=== PATIENT | female | born 1945 | race Caucasian/White ===

== ENCOUNTER 2023-09-30 16:10 | Observation (INO) | payer MEDICARE, MEDICAID, SELFPAY ==
--- NOTE | 2023-09-30 16:17 | ECG_ITS ---
The [facility] Test Date: 2023-09-30 Pat Name: TERESA GOODWIN Department: Room: - Gender: Female [employer]: : 1945 Requested By: Order Number: [id number] Reading MD: DIAN LLOYD Measurements Intervals Kulm Rate: 81 P: -2 RI: 132 QRS: -21 QRSD: 134 T: 22 QT: 414 QTc: 452 Interpretive Statements 1100 Sinus rhythm LEFT BUNDLE BRANCH BLOCK with secondary ST/T wave changes 9150 abnormal ECG No previous ECG available for comparison Electronically Signed On 10-01-2023 7:04:06 EST by DIAN LLOYD
--- NOTE | 2023-09-30 16:17 | XR_ITS ---
The [address] [address] Patient Name: TERESA GOODWIN MRN: [id number] date: 1945 Sex: F Assigned Patient Location: ER Current Patient Location: ER Accession/Order Number: [id number] Exam Date: 09/30/2023 05:20 Report Date: 09/30/2023 17:56 At the request of: SARKIS PRITCHETT Procedure: XR chest 1V EXAMINATION: XR chest 1V 09/30/2023 2:52 PM PST HISTORY: Weakness TECHNIQUE: Single frontal view of the chest acquired. COMPARISONS: Chest x-ray 01/10/2016 FINDINGS: Lines/tubes/other: Central venous catheter terminates in the proximal right atrium. Heart and mediastinum: Mildly enlarged cardiac silhouette. Cardiac valve replacement noted. Bones: No acute osseous abnormality. Lungs: The lungs are clear. There is no evidence of pneumonia or pulmonary edema. Small benign calcification granuloma in the right apex. Pleura: There is no significant pleural effusion or pneumothorax. Other: None. XR/XR chest 1V IMPRESSION: No acute cardiopulmonary abnormality. Electronically authenticated by: GHASSAN GREER Date: 09/30/2023 17:56
--- NOTE | 2023-09-30 16:19 | CT_ITS ---
The [address] [address] Patient Name: TERESA GOODWIN MRN: [id number] date: 1945 Sex: F Assigned Patient Location: ER Current Patient Location: Accession/Order Number: [id number] Exam Date: 09/30/2023 05:20 Report Date: 09/30/2023 18:02 At the request of: SARKIS PRITCHETT Procedure: CT head/brain wo con NONCONTRAST CT SCAN OF THE HEAD HISTORY: Headache. TECHNIQUE: Multiple axial images are taken from the level the vertex down to the base of the skull without the use of IV contrast. Images were then reconstructed in the sagittal and coronal planes. This exam was performed according to our departmental dose-optimization program which includes use of Automated Exposure Control, adjustment of the mA and/or kV according to patient size and/or use of iterative reconstruction technique. COMPARISON: None. FINDINGS: Lines and tubes: Shunt tubing with tip in the third ventricle arising from a right frontal approach. Brain Parenchyma: There is global, diffuse atrophy with periventricular decreased white matter attenuation. No intracranial mass. No intracranial hemorrhage. Posterior fossa: Normal. Midline shift: None Extra-axial fluid collection: None Ventricles: Normal. Mastoid air cells: Normal. Sinuses: Normal. Cranium: No depressed skull fracture. Danelle hole seen in the right frontal bone. Soft tissues: Normal. Orbits: Orbits demonstrate postoperative changes from prior cataract resection with prosthetic lens implant. CT/CT head/brain wo con IMPRESSION: 1. Chronic small vessel ischemic change. 2. Otherwise, no CT evidence for acute pathology. 3. If patient continues to have symptoms or if there remains any further clinical concern, MRI may help better delineate. Electronically authenticated by: GABRIEL YANES Date: 09/30/2023 18:02
--- NOTE | 2023-09-30 16:20 | ED_ITS ---
HPI - General Adult General Chief complaint: Weakness Stated complaint: WEAKNESS Time Seen by Provider: 09/30/23 16:17 History of Present Illness HPI narrative: patient is a 78-year-old female who presents to the emergency department by ambulance for the evaluation of generalized weakness. Patient states she was diagnosed with a urinary tract infection one week ago by her PCP. She states she feels as though she is not getting any better. She has not had any falls or syncope. She states she feels confused. She denies chest pain, shortness of breath, fevers, vomiting or diarrhea. She states she feels as though she is not urinating enough. She does not know if she is still taking her antibiotic. She is diabetic, she has a Dexcom to monitor her blood sugars. Related Data Home Medications Medication Instructions Recorded Confirmed cephalexin 500 mg capsule mg 09/30/23 clopidogrel 75 mg tablet mg 09/30/23 gabapentin 300 mg capsule mg 09/30/23 insulin detemir U-100 100 unit/mL unit subcut 09/30/23 (3 mL) subcutaneous pen (Levemir FlexPen) letrozole 2.5 mg tablet mg 09/30/23 metoprolol succinate 50 mg mg PO 09/30/23 tablet,extended release 24 hr ondansetron 4 mg disintegrating mg 09/30/23 tablet pantoprazole 40 mg tablet,delayed mg PO 09/30/23 release sertraline 100 mg tablet mg 09/30/23 sitagliptin phosphate 50 mg tablet mg 09/30/23 (Januvia) trazodone 100 mg tablet mg 09/30/23 Allergies Allergy/AdvReac Type Severity Reaction Status Date / Time No Known Drug Allergies Allergy Verified 09/30/23 16:22 Review of Systems ROS Constitutional Reports: fatigue; Denies: fever or chills Ears, nose, mouth, and throat Denies: throat pain or nasal congestion Cardiovascular Denies: chest pain Respiratory Denies: shortness of breath or cough Gastrointestinal Denies: abdominal pain, nausea, vomiting or diarrhea Genitourinary Reports: decreased urine ouput; Denies: painful urination Musculoskeletal Reports: back pain Integumentary/Breast Denies: rash Neurological Denies: headache or dizziness PFSH PFSH Social History Smoking status: Never smoker Exam Narrative Exam Narrative: Gen.: Awake, alert, in no distress Head: Normocephalic, atraumatic ENT: dry mucous membranes Respiratory: No respiratory distress, lungs clear bilaterally Cardio: Regular rate and rhythm Gastrointestinal: Abdomen is soft, nondistended and nontender to palpation Extremities: Moves extremities equally Psych: Normal mood and affect Neuro: No focal neuro deficit Skin: Warm, dry, intact Constitutional Vital Signs, click to edit/add: Last Vital Signs Temp 98.2 F 09/30/23 16:22 Pulse 88 09/30/23 16:22 Resp 20 09/30/23 16:22 BP 139/85 09/30/23 16:22 Pulse Ox 98 09/30/23 16:22 O2 Del Method Room Air 09/30/23 16:22 Course Vital Signs Vital signs: Vital Signs Temperature 98.2 F 09/30/23 16:22 Pulse Rate 88 09/30/23 16:22 Respiratory Rate 20 09/30/23 16:22 Blood Pressure 139/85 09/30/23 16:22 Pulse Oximetry 98 09/30/23 16:22 Oxygen Delivery Method Room Air 09/30/23 16:22 Temperature 98.2 F 09/30/23 16:22 Pulse Rate 88 09/30/23 16:22 Respiratory Rate 20 09/30/23 16:22 Blood Pressure 139/85 09/30/23 16:22 Pulse Oximetry 98 09/30/23 16:22 Oxygen Delivery Method Room Air 09/30/23 16:22 Medical Decision Making MDM Narrative Medical decision making narrative: patient is treated with IV fluids, vital signs in the Emergency Room are within normal limits, however on straight catheterization for urine, patient had only a small amount of urine in her bladder. She appears clinically dehydrated, her daughter called the emergency department stating that the patient has not been improving with antibiotics for the last six days, she has had a decline and is more weak, more unable to function at home. CT of the brain, chest x-ray show no evidence of acute process. Lab studies show elevated BUN and slightly elevated creatinine, urine specimen with mild urinary tract infection continuing to be present. Patient treated with IV antibiotics, IV fluids. We will admit to the hospitalist for observation for urinary tract infection and weakness. Medical Records Medical records reviewed: Yes I reviewed the patient's medical records Lab Data Lab results reviewed: Yes I reviewed the patient's lab results Labs: Lab Results 09/30/23 09/30/23 Range/Units 17:10 17:46 WBC 8.0 (4.0-11.0) 10^3/uL RBC 3.65 L (4.20-5.40) 10^6/uL Hgb 10.3 L (12.0-16.0) g/dL Hct 31.5 L (36.0-48.0) % MCV 86.3 (81.0-99.0) fL MCH 28.2 (26.7-34.0) pg MCHC 32.7 (29.9-35.2) g/dL RDW 13.9 (11.0-15.0) % Plt Count 222 (150-450) 10^3/uL MPV 10.4 (9.5-13.5) fL Neut % (Auto) 69.5 (43.0-75.0) % Lymph % (Auto) 19.7 L (20.5-60.0) % [place] % (Auto) 9.1 (1.7-12.0) % Eos % (Auto) 0.9 (0.9-7.0) % Baso % (Auto) 0.5 (0.2-2.0) % Neut # (Auto) 5.6 (1.4-6.5) 10^3/uL Lymph # (Auto) 1.6 (1.2-3.8) 10^3/uL [place] # (Auto) 0.7 (0.3-0.8) 10^3/uL Eos # (Auto) 0.1 (0.0-0.7) 10^3/uL Baso # (Auto) 0.0 (0.0-0.1) 10^3/uL Abs Immat Gran (auto) 0.02 (0.00-0.03) 10^3/uL Imm/Tot Granulo (auto) 0.3 (0.0-0.5) % PT 11.4 (9.0-11.6) sec INR 1.08 Sodium 135 L (136-145) mmol/L Potassium 3.9 (3.5-5.1) mmol/L Chloride 99 (98-107) mmol/L Carbon Dioxide 26.7 (21.0-32.0) mmol/L Anion Gap 13.2 BUN 22.0 H (7.0-18.0) mg/dL Creatinine 1.29 H (0.55-1.02) mg/dL Est GFR ( Amer) 49 L (>=60) Est GFR (Non-Af Amer) 40 L (>=60) BUN/Creatinine Ratio 17.1 Glucose 172 H (74-106) mg/dL Lactate 1.2 (0.4-2.0) mmol/L Calcium 9.1 (8.5-10.1) mg/dL Magnesium 1.7 L (1.8-2.4) mg/dL Total Bilirubin 0.4 (0.2-1.0) mg/dL AST 22 (15-37) U/L ALT 23 (14-59) U/L Alkaline Phosphatase 110 (46-116) U/L Troponin I High Sens 19.5 (4.0-51.3) pg/mL Total Protein 8.0 (6.4-8.2) g/dL Albumin 3.5 (3.4-5.0) g/dL Globulin 4.5 g/dL Albumin/Globulin Ratio 0.8 TSH 1.185 (0.358-3.740) uIU/mL Urine Color Lt. yellow (YELLOW) Urine Clarity Cloudy A (CLEAR) Urine pH 6.0 (5.0-9.0) Ur Specific [place] >=1.030 A (1.005-1.025) Urine Protein 100 A (NEG/TRACE) mg/dL Urine Glucose (UA) 100 A (NEGATIVE) mg/dL Urine Ketones Trace A (NEGATIVE) mg/dL Urine Occult Blood Small A (NEGATIVE) Urine Nitrite Negative (NEGATIVE) Urine Bilirubin Negative (NEGATIVE) Urine Urobilinogen 0.2 (0.2-1.0) EU/dL Ur Leukocyte Esterase Small A (NEGATIVE) Urine RBC 2-5 A (0-2) #/HPF Urine WBC 2-5 A (NONE SEEN) #/HPF Ur Squamous Epith Cells Many A (NONE/RARE) #/LPF Urine Crystals None seen (None Seen) #/HPF Urine Bacteria Small A (NONE SEEN) #/HPF Urine Casts None seen (NONE SEEN) #/LPF Urine Mucus Small A (NONE SEEN) Ur Culture Indicated? Yes Imaging Data Chest x-ray: Attestation: I have reviewed the pertinent imaging results. Radiologist's impression: Procedure: XR chest 1V EXAMINATION: XR chest 1V 09/30/2023 2:52 PM PST HISTORY: Weakness TECHNIQUE: Single frontal view of the chest acquired. COMPARISONS: Chest x-ray 01/10/2016 FINDINGS: Lines/tubes/other: Central venous catheter terminates in the proximal right atrium. Heart and mediastinum: Mildly enlarged cardiac silhouette. Cardiac valve replacement noted. Bones: No acute osseous abnormality. Lungs: The lungs are clear. There is no evidence of pneumonia or pulmonary edema. Small benign calcification granuloma in the right apex. Pleura: There is no significant pleural effusion or pneumothorax. Other: None. IMPRESSION: No acute cardiopulmonary abnormality. Electronically authenticated by: GHASSAN GREER Date: 09/30/2023 17:56 CT scan - head: Attestation: I have reviewed the pertinent imaging results. Radiologist's impression: Procedure: CT head/brain wo con NONCONTRAST CT SCAN OF THE HEAD HISTORY: Headache. TECHNIQUE: Multiple axial images are taken from the level the vertex down to the base of the skull without the use of IV contrast. Images were then reconstructed in the sagittal and coronal planes. This exam was performed according to our departmental dose-optimization program which includes use of Automated Exposure Control, adjustment of the mA and/or kV according to patient size and/or use of iterative reconstruction technique. COMPARISON: None. FINDINGS: Lines and tubes: Shunt tubing with tip in the third ventricle arising from a right frontal approach. Brain Parenchyma: There is global, diffuse atrophy with periventricular decreased white matter attenuation. No intracranial mass. No intracranial hemorrhage. Posterior fossa: Normal. Midline shift: None Extra-axial fluid collection: None Ventricles: Normal. Mastoid air cells: Normal. Sinuses: Normal. Cranium: No depressed skull fracture. Danelle hole seen in the right frontal bone. Soft tissues: Normal. Orbits: Orbits demonstrate postoperative changes from prior cataract resection with prosthetic lens implant. IMPRESSION: 1. Chronic small vessel ischemic change. 2. Otherwise, no CT evidence for acute pathology. 3. If patient continues to have symptoms or if there remains any further clinical concern, MRI may help better delineate. Electronically authenticated by: GABRIEL YANES Date: 09/30/2023 18:02 ECG Data Attestation: I personally reviewed and interpreted this ECG as follows: (normal sinus rhythm at a rate of eighty-one, no acute ST elevation, T-wave inversion in the lateral leads, EKG reviewed by attending physician) Discharge Plan Discharge Chief Complaint: Weakness Clinical Impression: Acute UTI, Dehydration, Weakness Patient Disposition: Admitted as Observation Time of Disposition Decision: 18:23 Condition: Good
[2023-09-30 16:22] VITALS: BP 139/85; PULSE 88; RESP 20; TEMP 36.8; O2SAT 98
[2023-09-30] MEDS: 0.9 % SODIUM CHLORIDE 1,000 ML 500 ML IV (17:05)
[2023-09-30 17:20] LABS: Basophils Percent Auto 0.5 % (0.2-2.0); Eosinophils Absolute Auto 0.1 10^3/uL (0.0-0.7); Eosinophils Percent Auto 0.9 % (0.9-7.0); Hematocrit 31.5 % (36.0-48.0); Hemoglobin 10.3 g/dL (12.0-16.0); Immature Granulocytes Abs Auto 0.02 10^3/uL (0.00-0.03); Immature Granulocytes Pct Auto 0.3 % (0.0-0.5); Lymphocytes Absolute Auto 1.6 10^3/uL (1.2-3.8); Lymphocytes Percent Auto 19.7 % (20.5-60.0); Mean Corpuscular HGB Conc 32.7 g/dL (29.9-35.2); Mean Corpuscular Hemoglobin 28.2 pg (26.7-34.0); Mean Corpuscular Volume 86.3 fL (81.0-99.0); Mean Platelet Volume 10.4 fL (9.5-13.5); Monocytes Absolute Auto 0.7 10^3/uL (0.3-0.8); Monocytes Percent Auto 9.1 % (1.7-12.0); Neutrophils Absolute Auto 5.6 10^3/uL (1.4-6.5); Neutrophils Percent Auto 69.5 % (43.0-75.0); Platelet Count 222 10^3/uL (150-450); Red Blood Count 3.65 10^6/uL (4.20-5.40); Red Cell Distribution Width 13.9 % (11.0-15.0)
[2023-09-30 17:30] LABS: INR 1.08; Prothrombin Time 11.4 sec (9.0-11.6)
[2023-09-30 17:40] LABS: Alanine Aminotransferase 23 U/L (14-59); Albumin Globulin Ratio 0.8; Albumin Level 3.5 g/dL (3.4-5.0); Alkaline Phosphatase 110 U/L (46-116); Anion Gap 13.2; Aspartate Amino Transferase 22 U/L (15-37); BUN Creatinine Ratio 17.1; Bilirubin Total 0.4 mg/dL (0.2-1.0); Calcium 9.1 mg/dL (8.5-10.1); Carbon Dioxide 26.7 mmol/L (21.0-32.0); Chloride 99 mmol/L (98-107); Estimated GFR (African America 49 (>=60); Estimated GFR (Non-African Ame 40 (>=60); Globulin 4.5 g/dL; Glucose 172 mg/dL (74-106); Magnesium 1.7 mg/dL (1.8-2.4); Potassium 3.9 mmol/L (3.5-5.1); Sodium 135 mmol/L (136-145); Thyroid Stimulating Hormone 1.185 uIU/mL (0.358-3.740); Troponin I High Sensitivity 19.5 pg/mL (4.0-51.3)
[2023-09-30 17:46] LABS: Lactate/Lactic Acid 1.2 mmol/L (0.4-2.0)
[2023-09-30 17:56] LABS: Bilirubin Urine NEGATIVE (NEGATIVE); Blood Urine SMALL (NEGATIVE); Color Urine LT. YELLOW (YELLOW); Glucose Urine UA 100 mg/dL (NEGATIVE); Ketones Urine TRACE mg/dL (NEGATIVE); Leukocyte Esterase Urine SMALL (NEGATIVE); Nitrite Urine NEGATIVE (NEGATIVE); Protein Urine 100 mg/dL (NEG/TRACE); Specific Gravity Urine >=1.030 (1.005-1.025); Urobilinogen Urine 0.2 EU/dL (0.2-1.0)
[2023-09-30 17:57] LABS: Clarity Urine CLOUDY (CLEAR); Urine Microscopic Indicated YES
[2023-09-30 17:58] LABS: Bacteria Urine SMALL #/HPF (NONE SEEN); Cast Seen? NONE SEEN #/LPF (NONE SEEN); Crystals Seen? None Seen #/HPF (None Seen); Mucus Urine SMALL (NONE SEEN); Squamous Epithelial Cell Urine MANY #/LPF (NONE/RARE); Urine Culture Indicated YES
[2023-09-30] MEDS: MAGNESIUM SULFATE IN WATER 2 GM/50 ML PREMIX IV (18:20)
[2023-09-30 19:44] VITALS: BP 141/64; PULSE 76; RESP 16; TEMP 37.1; O2SAT 96; BMI 29.5
[2023-09-30 21:52] LABS: Glucometer 153 mg/dL (74-106)
--- NOTE | 2023-09-30 22:25 | W.PM.TELEPN ---
Progress Note: Subjective Subjective Interval history: CC: Weakness HPI: This is a 78 years old female brought in by history of family for evaluation of weakness. Patient lives at home with daughter. According to daughter patient no longer able to function by herself. Patient's past medical history significant for diabetes, hypertension, dyslipidemia. Patient has recurrent bouts of urinary tract infection. She is currently on Keflex. Patient denies having any fever, chills, dysuria. Urinalysis in the emergency room did not reveal any signs of acute infection. Admitted for further evaluation. Exam Narrative Exam Narrative: ROS: 1.General: no fever, chills, not in distress 2.HEENT: no MICHEL, no blurry vision, no swallow problems, no nasal congestion, no sore throat 3.Pulmonary: no cough, SOB, wheezes 4.CVS: no CP, no palpitations, no MAX, no SOB, no intermittent claudication 5.GI: no nausea, vomiting or diarrhea, no abdominal pain, no constipation, no hematemesis or hematochezia 6.: no renal colic, no hematuria, urinary frequency or urgency 7.Extremities: no edema 8.Neurological: no dizziness, vertigo, double or blurry vision, no no focal weakness, no paresthesia, no swallow or speech problems 9.Musculosceletal: no joint pains, no joint swelling, no back pain 10.Dermatological: no skin rashes, no lesions, no pruritus 11.Hematological: no bleeding, no hx/o clots 12.Endocrinological: no heat/cold intolerance, no hx/o diabetes 13.Psychiatric: no suicidal or homicidal thoughts Physical Exam: Not in distress, pleasant, lucid, cooperative, Head - atraumatic, eyes - pupils equal, round, reactive to light, extra ocular movement intact, MMM Neck - supple, thyroid not enlarged, LN not palpated Lungs - clear to auscultation, no dullness on percussion CVS - heart sounds S1, S2, no additional murmurs gallop, regular rate and rhythm Gastrointestinal?abdomen is soft, non-tender, non-distended, no organomegaly, positive bowel sounds Extremities no clubbing, cyanosis or edema Neurological?cranial nerve II?XII grossly intact, no meningeal signs, no cerebellar signs, no sensory deficit Musculoskeletal - DJD related changes in multiple joints, no effusions, ROM preserved Dermatological - the skin dry, warm, no rashes Psychiatric?patient is AAO X3, patient has normal affect Constitutional Vital Signs, click to edit/add: Last Vital Signs Temp 98.8 F 09/30/23 19:44 Pulse 76 09/30/23 19:44 Resp 16 09/30/23 19:44 BP 141/64 09/30/23 19:44 Pulse Ox 96 09/30/23 19:44 O2 Del Method Room Air 09/30/23 19:44 Progress Note: Objective Labs Labs: Short CBC 09/30/23 Range/Units 17:10 WBC 8.0 (4.0-11.0) 10^3/uL Hgb 10.3 L (12.0-16.0) g/dL Hct 31.5 L (36.0-48.0) % Plt Count 222 (150-450) 10^3/uL BMP 09/30/23 17:10 Sodium 135 L Potassium 3.9 Chloride 99 Carbon Dioxide 26.7 BUN 22.0 H Creatinine 1.29 H Glucose 172 H Calcium 9.1 Liver Function 09/30/23 Range/Units 17:10 Total Bilirubin 0.4 (0.2-1.0) mg/dL AST 22 (15-37) U/L ALT 23 (14-59) U/L Alkaline Phosphatase 110 (46-116) U/L Albumin 3.5 (3.4-5.0) g/dL Urine 09/30/23 Range/Units 17:46 Urine Color Lt. yellow (YELLOW) Urine Clarity Cloudy A (CLEAR) Urine pH 6.0 (5.0-9.0) Ur Specific [place] >=1.030 A (1.005-1.025) Urine Protein 100 A (NEG/TRACE) mg/dL Urine Glucose (UA) 100 A (NEGATIVE) mg/dL Progress Note: A&P Assessment and Plan (1) Acute UTI: Assessment and Plan: Follow-up results of the cultures Continue with IV ceftriaxone for now (2) Dehydration: Assessment and Plan: Started on gentle, judicious IV fluid resuscitation Patient has difficulty keeping IV, if unable to keep IV?encourage oral hydration (3) Weakness: Assessment and Plan: Multifactorial?follow-up with physical and Occupational Therapy for disposition determination Fall precautions in place (4) Diabetes: Assessment and Plan: Continue with ADA diet Continue with long and short acting insulin Started on sliding scale (5) Hypertension: Assessment and Plan: Verify and resume home regimen, adjust as needed Plan As the provider for the telehealth service, I attest that I introduced myself to the patient, provided my credentials, disclosed by location and determined that based on a review of the patient's chart and discussion with members of the patient's treatment team, telemedicine via real-time, 2 way, and interactive audio and video platform is an appropriate and effective means of providing the service. ?The patient and I mutually agree this visit is appropriate for telemedicine. ?The virtual encounter was taken place from? [place], [place]. ?The encounter took approximately 35 minutes. ?The nurse was present during the entire time and I was able to move the stethoscope in appropriate directions. ?The patient was evaluated at the Hospital ? Portions of this note may be dictated using [employer] voice recognition software. Variances in spelling and vocabulary are possible and unintentional. Not all errors may be caught and/or corrected. Please notify the author if any discrepancies are noted and/or if the meaning of any statement is unclear.? ? Patient verbally consented for treatment via video visit with patient currently located at the [facility] and provider located in [place]. Telemedicine Attestation Telemedicine Attestation I conducted this encounter from [place] [] via secure live, [id number] video conference with the patient, located at [facility] with UTI []. Prior to the interview, the risks and benefits of telemedicine were discussed with the patient and verbal consent was obtained.
[2023-09-30] MEDS: CEFTRIAXONE 1,000 MG in 0.9 % SODIUM CHLORIDE 50 ML 100 MG IV (23:40)
[2023-09-30] MEDS: 0.9 % SODIUM CHLORIDE 1,000 ML 75 ML IV (23:40)
[2023-09-30] MEDS: INSULIN DETEMIR 300 UNIT/3 ML INSULN.PEN 10 UNIT SUBQ (23:45)
[2023-09-30] MEDS: GABAPENTIN 300 MG CAPSULE PO (23:46)
[2023-09-30] MEDS: TRAZODONE HCL 50 MG TABLET 100 MG PO (23:47)
[2023-09-30] MEDS: ACETAMINOPHEN 325 MG TABLET 650 MG PO (23:47)
[2023-10-01 04:25] VITALS: BP 151/71; PULSE 69; RESP 16; TEMP 36.6; O2SAT 95
[2023-10-01 05:31] LABS: Anion Gap 11.7; BUN Creatinine Ratio 15.3; Basophils Percent Auto 0.6 % (0.2-2.0); Carbon Dioxide 27.8 mmol/L (21.0-32.0); Chloride 102 mmol/L (98-107); Eosinophils Absolute Auto 0.1 10^3/uL (0.0-0.7); Eosinophils Percent Auto 1.8 % (0.9-7.0); Estimated GFR (African America 51 (>=60); Estimated GFR (Non-African Ame 42 (>=60); Glucose 141 mg/dL (74-106); Hemoglobin 9.8 g/dL (12.0-16.0); Immature Granulocytes Abs Auto 0.02 10^3/uL (0.00-0.03); Immature Granulocytes Pct Auto 0.3 % (0.0-0.5); Lymphocytes Absolute Auto 1.8 10^3/uL (1.2-3.8); Lymphocytes Percent Auto 27.5 % (20.5-60.0); Mean Corpuscular HGB Conc 31.6 g/dL (29.9-35.2); Mean Corpuscular Hemoglobin 27.8 pg (26.7-34.0); Mean Corpuscular Volume 88.1 fL (81.0-99.0); Monocytes Absolute Auto 0.7 10^3/uL (0.3-0.8); Neutrophils Absolute Auto 3.9 10^3/uL (1.4-6.5); Neutrophils Percent Auto 59.8 % (43.0-75.0); Platelet Count 224 10^3/uL (150-450); Potassium 3.5 mmol/L (3.5-5.1); Red Blood Count 3.52 10^6/uL (4.20-5.40); Red Cell Distribution Width 14.2 % (11.0-15.0); Sodium 138 mmol/L (136-145); White Blood Count 6.6 10^3/uL (4.0-11.0)
[2023-10-01 07:51] VITALS: RESP 16
[2023-10-01] MEDS: CLOPIDOGREL BISULFATE 75 MG TABLET PO (08:06)
[2023-10-01] MEDS: OMEPRAZOLE 40 MG CAPSULE.DR PO (08:07)
[2023-10-01] MEDS: METOPROLOL SUCCINATE 50 MG TAB.ER.24H PO (08:07)
[2023-10-01] MEDS: SERTRALINE HCL 100 MG TABLET PO (08:07)
[2023-10-01 09:35] LABS: Magnesium 2.4 mg/dL (1.8-2.4)
[2023-10-01] MEDS: ACETAMINOPHEN 325 MG TABLET 650 MG PO ×2 (09:39→20:51)
[2023-10-01] MEDS: GABAPENTIN 300 MG CAPSULE PO ×2 (09:40→22:02)
[2023-10-01 11:05] LABS: Glucometer 218 mg/dL (74-106)
[2023-10-01] MEDS: INSULIN ASPART 300 UNIT/3 ML PEN SUBQ ×2 (11:15→15:55)
--- NOTE | 2023-10-01 11:35 | P.HP_ITS ---
I have also seen and examined patient at the time of H&P. I have reviewed Chart/labs and radiology findings. I agree with the above findings and plan of care. Treat UTI, physical therapy and Occ. Therapy input. H&P: HPI History of Present Illness Chief complaint: WEAKNESS UTI WEAKNESS Narrative: Date/time of exam: 10/01/23 1040 This is a 78-year-old female patient with a past medical history as outlined below including DM 2, HTN, GERD, depression; who presented to the ED yesterday afternoon complaining of increased weakness. She had been diagnosed with a UTI by her PCP approximately 1 week ago but felt that she was continuing to have symptoms that mostly included weakness. She also reportedly felt more confused. Denies any other acute complaints such as chest pain, shortness of breath, abdominal pain, N/V/D. Work-up in the ED revealed stable CKD 3, mild hypomagnesemia (1.7), and e quivocal persistent UTI. No evidence of leukocytosis or fever. She appeared clinically dry and was treated with an IVF bolus. She was admitted to the hospitalist service in observation last night. At the time of my exam today the patient is resting in bed. She is alert and oriented x3 and has no evidence of confusion at this time. She does state that she feels better after receiving IV fluids and admits that she does not drink adequate amounts of p.o. fluids routinely. She denies dysuria or urinary frequency - just mainly complains of weakness and being unsteady with ambulation. She continues to deny CP, SOB, N/V/D, abdominal pain. Review of Systems ROS Status of ROS 10 or more systems reviewed and unremarkable except as noted in history and below [facility] Medical History (Updated 10/01/23 @ 12:06 by Joelle Goncalves NP) Breast CA ?C50.919 - Malignant neoplasm of unspecified site of unspecified female breast (ICD-10) CAD (coronary artery disease) ?I25.10 - Atherosclerotic heart disease of [place] coronary artery without angina pectoris (ICD-10) Depression ?F32.A - Depression, unspecified (ICD-10) Diabetes ?E11.9 - Type 2 diabetes mellitus without complications (ICD-10) GERD (gastroesophageal reflux disease) ?K21.9 - Gastro-esophageal reflux disease without esophagitis (ICD-10) Hypertension ?I10 - Essential (primary) hypertension (ICD-10) Surgical History S/P mitral valve replacement with bioprosthetic valve ?Z95.3 - Presence of xenogenic heart valve (ICD-10) Social History Within the past year, how often did you have a drink containing alcohol: never Score interpretation: A score less than 3 is consistent with normal alcohol consumption. 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 Known occupational exposures/hazards: No Highest level of school completed/degree received: high school graduate Do you want help with school or training: No Are you now , , , , never or living with a partner: never In a typical week, how many times do you talk on the telephone with family, friends, or neighbors: 3 or more times per week How often do you get together with friends or relatives: never How often do you attend scientologist or jewish services: 4 or more times per year Do you belong to any clubs or organizations such as scientologist groups unions, [employer] or athletic groups, or school groups: no Total score: 2 Score interpretation: A score of greater than or equal to 2 indicates the lowest level of social isolation. Little interest or pleasure in doing things: not at all Feeling down, depressed, or hopeless: not at all Feel stressed/tense/nervous/anxious/difficulty sleeping: not at all Due to disability, difficulty making decisions: No Do you think of yourself as: straight/heterosexual Gender Identity: female Meds Home Medications and Allergies Home Medications Medication Instructions Recorded Confirmed Type cephalexin 500 mg capsule 500 mg PO Q8H 09/30/23 09/30/23 History clopidogrel 75 mg tablet 75 mg PO QDAY 09/30/23 09/30/23 History gabapentin 300 mg capsule 300 mg PO Q12H 09/30/23 09/30/23 History insulin detemir U-100 100 unit/mL 30 unit subcut QPM 09/30/23 09/30/23 History (3 mL) subcutaneous pen (Levemir FlexPen) letrozole 2.5 mg tablet 2.5 mg PO Q24H 09/30/23 09/30/23 History metoprolol succinate 50 mg 50 mg PO QDAY 09/30/23 09/30/23 History tablet,extended release 24 hr ondansetron 4 mg disintegrating 4 mg PO Q8H PRN nausea and vomiting 09/30/23 History tablet pantoprazole 40 mg tablet,delayed 40 mg PO QDAY 09/30/23 09/30/23 History release sertraline 100 mg tablet 100 mg PO QAM 09/30/23 09/30/23 History sitagliptin phosphate 50 mg tablet 50 mg PO QAM 09/30/23 09/30/23 History (Januvia) trazodone 100 mg tablet 100 mg PO QPM 09/30/23 09/30/23 History Allergies Allergy/AdvReac Type Severity Reaction Status Date / Time No Known Drug Allergies Allergy Verified 09/30/23 16:22 Exam Constitutional Vital Signs, click to edit/add: Last Vital Signs Temp 97.8 F 10/01/23 04:25 Pulse 69 10/01/23 04:25 Resp 16 10/01/23 07:51 BP 151/71 H 10/01/23 04:25 Pulse Ox 95 10/01/23 04:25 O2 Del Method Room Air 10/01/23 04:25 Common normals: no apparent distress, oriented x3, alert and well nourished General appearance: cooperative Orientation/consciousness: Yes awake [facility] Common normals: normocephalic, head/scalp atraumatic, hearing grossly normal bilaterally and external nose normal Face and sinus: normal facial exam Nose: external nose normal Eye Common normals: PERRL, EOMs intact bilaterally, conjunctivae normal and no scleral icterus Alignment: alignment normal Eyelid: eyelids normal Conjunctiva: conjunctiva(e) normal Pupil: PERRL Chest Common normals: inspection of chest normal Chest: symmetrical chest wall rise Respiratory Common normals: normal respiratory effort, no retractions, no use of accessory muscles and clear to auscultation bilaterally Effort & inspection: able to speak in complete sentences Auscultation: diminished lung sounds (BLL) Cardio Common normals: no JVD, regular rate, regular rhythm, S1 normal heart sound, S2 normal heart sound, no gallops, no clicks, no rub and peripheral pulses 2+ throughout Heart sounds: murmur (HSM 3/6) GI Common normals: Normal to inspection, nondistended, normoactive bowel sounds present, soft to palpation, non-tender, no hepatosplenomegaly, no masses and no bruits Bladder/kidney exam: bladder normal to palpation Back & Pelvis Common normals: thoracic and lumbar spine normal to inspection Extremity Common normals: normal capillary refill and no pedal edema General: normal exam except as noted; no clubbing and no cyanosis Neuro Sugar Coma Scale: GCS not evaluated Common normals: oriented x3, CN's II-XII intact bilaterally, moves all extremities, no focal motor deficits and no sensory deficits noted Sensorium/orientation: awake and alert Speech: speech normal Motor exam: strength 5/5 throughout Psych Common normals: mental status grossly normal, thought process normal, affect normal and activity/motor behavior normal Results Labs Labs: Short CBC 09/30/23 10/01/23 Range/Units 17:10 04:40 WBC 8.0 6.6 (4.0-11.0) 10^3/uL Hgb 10.3 L 9.8 L (12.0-16.0) g/dL Hct 31.5 L 31.0 L (36.0-48.0) % Plt Count 222 224 (150-450) 10^3/uL BMP 09/30/23 10/01/23 17:10 04:40 Sodium 135 L 138 Potassium 3.9 3.5 Chloride 99 102 Carbon Dioxide 26.7 27.8 BUN 22.0 H 19.0 H Creatinine 1.29 H 1.24 H Glucose 172 H 141 H Calcium 9.1 9.0 Liver Function 09/30/23 Range/Units 17:10 Total Bilirubin 0.4 (0.2-1.0) mg/dL AST 22 (15-37) U/L ALT 23 (14-59) U/L Alkaline Phosphatase 110 (46-116) U/L Albumin 3.5 (3.4-5.0) g/dL Urine 09/30/23 Range/Units 17:46 Urine Color Lt. yellow (YELLOW) Urine Clarity Cloudy A (CLEAR) Urine pH 6.0 (5.0-9.0) Ur Specific Joshua >=1.030 A (1.005-1.025) Urine Protein 100 A (NEG/TRACE) mg/dL Urine Glucose (UA) 100 A (NEGATIVE) mg/dL Pulse Oximetry Attestation: I have reviewed the pertinent pulse oximetry results. Assessment and Plan Assessment and Plan (1) Dehydration: Assessment and Plan: ACUTE * Adm observation - Improved * 500 ml IVF bolus given in ED * Continue NS at 75ml/hr until the current liter is completed then d/c * BMP daily * Disposition: likely d/c home w/ home health vs SNF for rehab in the next 24-48 hrs (2) Weakness: Assessment and Plan: ACUTE * Multifactorial - Acute UTI, dehydration, hypomagnesemia * PT/OT consults for eval and treat * Consider SNF for rehab strengthening vs home with home health pending clinical course (3) Hypomagnesemia: Assessment and Plan: ACUTE * Mg level mildly low at 1.7 in ED * 2gm Mag sulfate IVPB given in the ED * Repeat mag level today is 2.4 - resolved (4) Acute UTI: Assessment and Plan: ACUTE * Equivocal finding of persistent UTI in ED - culture pending * Failed on on OP Keflex * Outpatient UA/Cx results not available * Continue IVPB Rocephin for now - likely 3 day course (5) Diabetes: Assessment and Plan: CHRONIC * Continue home Levemir and SS insulin correction * Hold Januvia for now during acute hospitalization - plan to resume at d/c * ACHS glucometer checks * Med CC diet (6) Depression: Assessment and Plan: CHRONIC (7) GERD (gastroesophageal reflux disease): Assessment and Plan: CHRONIC * Continue home PPI (8) CAD (coronary artery disease): Assessment and Plan: CHRONIC * Continue home plavix and metoprolol (9) Breast CA: Assessment and Plan: CHRONIC * Continue home letrozole
--- NOTE | 2023-10-01 11:56 | CM.NOTE ---
Rounds made with Dr. Rodriguez, PT and OT to evaluate pt today. No discharge to home.
[2023-10-01 13:21] VITALS: BP 119/58; PULSE 77; RESP 20; TEMP 36.8; O2SAT 95
--- NOTE | 2023-10-01 13:49 | CM.NOTE ---
Called [facility] and sent clinical information for new referral. Updated pt on referral being sent.
--- NOTE | 2023-10-01 15:38 | CM.NOTE ---
Faxed updated insurance to [facility] on pt, pt will be precert. Information received by [facility].
[2023-10-01 15:45] LABS: Glucometer 257 mg/dL (74-106)
[2023-10-01 19:27] VITALS: BP 148/56; PULSE 79; RESP 16; TEMP 37.1; O2SAT 94
[2023-10-01 20:44] LABS: Glucometer 171 mg/dL (74-106)
[2023-10-01] MEDS: INSULIN DETEMIR 300 UNIT/3 ML INSULN.PEN 30 UNIT SUBQ (20:53)
[2023-10-01] MEDS: TRAZODONE HCL 50 MG TABLET 100 MG PO (21:53)
[2023-10-01] MEDS: CEFTRIAXONE 1,000 MG in 0.9 % SODIUM CHLORIDE 50 ML 100 MG IV (22:02)
[2023-10-02 04:22] VITALS: BP 142/52; PULSE 67; RESP 16; TEMP 36.7; O2SAT 93
[2023-10-02 04:59] LABS: Basophils Percent Auto 0.7 % (0.2-2.0); Eosinophils Absolute Auto 0.3 10^3/uL (0.0-0.7); Hematocrit 30.4 % (36.0-48.0); Hemoglobin 9.6 g/dL (12.0-16.0); Immature Granulocytes Abs Auto 0.03 10^3/uL (0.00-0.03); Immature Granulocytes Pct Auto 0.5 % (0.0-0.5); Lymphocytes Absolute Auto 1.8 10^3/uL (1.2-3.8); Lymphocytes Percent Auto 30.1 % (20.5-60.0); Mean Corpuscular HGB Conc 31.6 g/dL (29.9-35.2); Mean Corpuscular Hemoglobin 28.2 pg (26.7-34.0); Mean Corpuscular Volume 89.1 fL (81.0-99.0); Mean Platelet Volume 10.9 fL (9.5-13.5); Monocytes Absolute Auto 0.7 10^3/uL (0.3-0.8); Monocytes Percent Auto 12.3 % (1.7-12.0); Neutrophils Absolute Auto 3.1 10^3/uL (1.4-6.5); Neutrophils Percent Auto 51.4 % (43.0-75.0); Platelet Count 216 10^3/uL (150-450); Red Blood Count 3.41 10^6/uL (4.20-5.40); Red Cell Distribution Width 14.4 % (11.0-15.0)
[2023-10-02 05:58] LABS: Anion Gap 11.3; BUN Creatinine Ratio 13.5; Calcium 8.6 mg/dL (8.5-10.1); Carbon Dioxide 27.3 mmol/L (21.0-32.0); Chloride 104 mmol/L (98-107); Estimated GFR (African America 44 (>=60); Estimated GFR (Non-African Ame 36 (>=60); Glucose 207 mg/dL (74-106); Potassium 3.6 mmol/L (3.5-5.1); Sodium 139 mmol/L (136-145)
[2023-10-02] MEDS: INSULIN ASPART 300 UNIT/3 ML PEN SUBQ ×3 (07:38→21:48)
[2023-10-02 07:42] VITALS: PULSE 84; RESP 16
--- NOTE | 2023-10-02 10:11 | P.PN_ITS ---
Progress Note: Subjective Subjective Interval history: Up in chair eating breakfast. Still with weakness with ambulation. Some shortness of breath as well. Exam Constitutional Vital Signs, click to edit/add: Last Vital Signs Temp 98.1 F 10/02/23 04:22 Pulse 84 10/02/23 07:42 Resp 16 10/02/23 07:42 BP 142/52 H 10/02/23 04:22 Pulse Ox 93 L 10/02/23 04:22 O2 Del Method Room Air 10/02/23 04:22 Common normals: no apparent distress, oriented x3, alert and well nourished General appearance: cooperative Orientation/consciousness: Yes awake [facility] Common normals: normocephalic, head/scalp atraumatic, hearing grossly normal bilaterally and external nose normal Face and sinus: normal facial exam Nose: external nose normal Eye Common normals: PERRL, EOMs intact bilaterally, conjunctivae normal and no scleral icterus Alignment: alignment normal Eyelid: eyelids normal Conjunctiva: conjunctiva(e) normal Pupil: PERRL Chest Common normals: inspection of chest normal Chest: symmetrical chest wall rise Respiratory Common normals: normal respiratory effort, no retractions, no use of accessory muscles and clear to auscultation bilaterally Effort & inspection: able to speak in complete sentences Auscultation: diminished lung sounds (BLL) Cardio Common normals: no JVD, regular rate, regular rhythm, S1 normal heart sound, S2 normal heart sound, no gallops, no clicks, no rub and peripheral pulses 2+ throughout Heart sounds: murmur (HSM 3/6) GI Common normals: Normal to inspection, nondistended, normoactive bowel sounds present, soft to palpation, non-tender, no hepatosplenomegaly, no masses and no bruits Bladder/kidney exam: bladder normal to palpation Back & Pelvis Common normals: thoracic and lumbar spine normal to inspection Extremity Common normals: normal capillary refill and no pedal edema General: normal exam except as noted; no clubbing and no cyanosis Neuro [place] Coma Scale: GCS not evaluated Common normals: oriented x3, CN's II-XII intact bilaterally, moves all extremities, no focal motor deficits and no sensory deficits noted Sensorium/orientation: awake and alert Speech: speech normal Motor exam: strength 5/5 throughout Psych Common normals: mental status grossly normal, thought process normal, affect normal and activity/motor behavior normal Progress Note: Objective Labs Labs: Short CBC 10/02/23 Range/Units 04:19 WBC 6.0 (4.0-11.0) 10^3/uL Hgb 9.6 L (12.0-16.0) g/dL Hct 30.4 L (36.0-48.0) % Plt Count 216 (150-450) 10^3/uL [facility] 10/02/23 04:19 Sodium 139 Potassium 3.6 Chloride 104 Carbon Dioxide 27.3 BUN 19.0 H Creatinine 1.41 H Glucose 207 H Calcium 8.6 Progress Note: A&P Assessment and Plan (1) Dehydration: (2) Weakness: (3) Hypomagnesemia: (4) Acute UTI: (5) Diabetes: (6) Depression: (7) GERD (gastroesophageal reflux disease): (8) CAD (coronary artery disease): (9) Breast CA: Plan Hyponatremia due to dehydration resulting in acute elevation of BUN and creatinine-creatinine somewhat elevated today.: ACUTE -overall improved. Oral intake improving. Glvpjm-nuieyvjzwusrf-qtueb stool for occult blood. Weakness: Acute UTI, dehydration, hypomagnesemia-patient still significant weakness with any ambulation. Recommending rehab. Hypomagnesemia: Continue to monitor Acute UTI: Failed on on OP Keflex-so added IV Cipro. Check in cultures hopefully back later today or tomorrow. Uncontrolled diabetes: Sugars elevated. Encouraged her to use her long-acting but did decrease the dose because she stated she had hypoglycemia in the past. Depression: Continue with home medications GERD continue with home medications CAD (coronary artery disease): No chest pain but significant dyspnea. May need echocardiogram. L Breast CA: Continue with home medications
[2023-10-02] MEDS: CLOPIDOGREL BISULFATE 75 MG TABLET PO (10:12)
[2023-10-02] MEDS: OMEPRAZOLE 40 MG CAPSULE.DR PO (10:12)
[2023-10-02] MEDS: METOPROLOL SUCCINATE 50 MG TAB.ER.24H PO (10:12)
[2023-10-02] MEDS: SERTRALINE HCL 100 MG TABLET PO (10:13)
[2023-10-02] MEDS: GABAPENTIN 300 MG CAPSULE PO ×2 (10:14→21:45)
--- NOTE | 2023-10-02 10:29 | PT.DAILY ---
Physical Therapy Daily Note PT Daily Note/Assess Start: 10/02/23 10:26 Freq: Status: Active Protocol: Document 10/02/23 10:26 ANGELA (Rec: 10/02/23 10:29 ANGELA [id number]) Physical Therapy Daily Note/Assessment Time In/Time Out Time In 09:58 Time Out 10:08 Pain In Pain N/A Pain Out Pain N/A Subjective Subjective Pt just finishing up using restroom upon arrival. Agrees to let therapy take over for nursing. Therapeutic Exercise Time Therapeutic Exercise Minutes (minutes) 3 Therapeutic Exercise Units 0 Therapeutic Exercise Treatment Therapeutic Exercise Treatment Bilat LE strengthening ex complete in BS chair 10x ea. Therapeutic Activity Time Therapeutic Activity Minutes (minutes) 5 Therapeutic Activity Units 1 Therapeutic Activity Treatment Chair Transfer Ability Minimum Assist Therapeutic Activity Comments Pt standing in restroom upon arrival. Pt amb 30' in room with RW, SBA. Pt is easily fatigued with this. Pt reports needing to sit down to rest before attempting anything else. Once pt rests she performs 2x sit>stand with Aretha. Remains in BS chair to perform bilat LE strengthening ex. Once ex complete pt remains in BS chair with call light in reach and needs met. Total Physical Therapy Time Total Therapy Minutes 8 Total Physical Therapy Units 1 Summary Daily Note Summary Increased gait distance but is easily fatigued with this. Would benefit from SNF to return to PLOF.
[2023-10-02 11:14] LABS: Glucometer 113 mg/dL (74-106)
[2023-10-02 14:00] VITALS: BP 143/55; PULSE 66; RESP 18; TEMP 37.3; O2SAT 95
[2023-10-02] MEDS: 0.9 % SODIUM CHLORIDE 250 ML 10 ML IV (14:26)
[2023-10-02] MEDS: CIPROFLOXACIN IN 5 % DEXTROSE 400 MG/200 ML PIGGYBACK 200 MG IV (14:26)
[2023-10-02 16:17] LABS: Glucometer 217 mg/dL (74-106)
[2023-10-02] MEDS: CEFTRIAXONE 1,000 MG in 0.9 % SODIUM CHLORIDE 50 ML 100 MG IV (21:45)
[2023-10-02] MEDS: TRAZODONE HCL 50 MG TABLET 100 MG PO (21:45)
[2023-10-02] MEDS: INSULIN DETEMIR 300 UNIT/3 ML INSULN.PEN 20 UNIT SUBQ (21:49)
[2023-10-02 21:57] VITALS: BP 156/70; PULSE 62; RESP 20; TEMP 36.8; O2SAT 96
[2023-10-02 21:59] LABS: Glucometer 170 mg/dL (74-106)
[2023-10-03] MEDS: CIPROFLOXACIN IN 5 % DEXTROSE 400 MG/200 ML PIGGYBACK 200 MG IV ×2 (00:47→14:40)
[2023-10-03 04:54] LABS: Basophils Percent Auto 0.7 % (0.2-2.0); Eosinophils Absolute Auto 0.4 10^3/uL (0.0-0.7); Eosinophils Percent Auto 5.8 % (0.9-7.0); Hematocrit 30.1 % (36.0-48.0); Hemoglobin 9.3 g/dL (12.0-16.0); Immature Granulocytes Abs Auto 0.02 10^3/uL (0.00-0.03); Immature Granulocytes Pct Auto 0.3 % (0.0-0.5); Lymphocytes Absolute Auto 1.5 10^3/uL (1.2-3.8); Lymphocytes Percent Auto 25.3 % (20.5-60.0); Mean Corpuscular HGB Conc 30.9 g/dL (29.9-35.2); Mean Corpuscular Hemoglobin 27.9 pg (26.7-34.0); Mean Corpuscular Volume 90.4 fL (81.0-99.0); Mean Platelet Volume 10.3 fL (9.5-13.5); Monocytes Absolute Auto 0.7 10^3/uL (0.3-0.8); Monocytes Percent Auto 12.2 % (1.7-12.0); Neutrophils Absolute Auto 3.4 10^3/uL (1.4-6.5); Neutrophils Percent Auto 55.7 % (43.0-75.0); Platelet Count 228 10^3/uL (150-450); Red Blood Count 3.33 10^6/uL (4.20-5.40); Red Cell Distribution Width 14.6 % (11.0-15.0); White Blood Count 6.1 10^3/uL (4.0-11.0)
[2023-10-03 05:08] LABS: Anion Gap 10.7; BUN Creatinine Ratio 13.9; Calcium 8.7 mg/dL (8.5-10.1); Chloride 106 mmol/L (98-107); Estimated GFR (African America 45 (>=60); Estimated GFR (Non-African Ame 37 (>=60); Glucose 183 mg/dL (74-106); Potassium 3.7 mmol/L (3.5-5.1); Sodium 141 mmol/L (136-145)
[2023-10-03 05:27] VITALS: BP 146/64; PULSE 54; RESP 20; TEMP 36.1; O2SAT 92
[2023-10-03] MEDS: INSULIN ASPART 300 UNIT/3 ML PEN SUBQ ×4 (07:57→21:42)
[2023-10-03] MEDS: CLOPIDOGREL BISULFATE 75 MG TABLET PO (09:30)
[2023-10-03] MEDS: OMEPRAZOLE 40 MG CAPSULE.DR PO (09:30)
[2023-10-03] MEDS: METOPROLOL SUCCINATE 50 MG TAB.ER.24H PO (09:30)
[2023-10-03] MEDS: SERTRALINE HCL 100 MG TABLET PO (09:31)
[2023-10-03] MEDS: GABAPENTIN 300 MG CAPSULE PO ×2 (09:31→21:35)
[2023-10-03] MEDS: LETROZOLE 2.5 MG 2.5 EACH PO (09:31)
--- NOTE | 2023-10-03 10:55 | P.PN_ITS ---
Progress Note: Subjective Subjective Interval history: Up in chair, finished with breakfast, no new complaints except persistence with her weakness with ambulation. Exam Constitutional Vital Signs, click to edit/add: Last Vital Signs Temp 97.0 F L 10/03/23 05:27 Pulse 54 L 10/03/23 05:27 Resp 20 10/03/23 05:27 BP 146/64 H 10/03/23 05:27 Pulse Ox 92 L 10/03/23 05:27 O2 Del Method Room Air 10/03/23 05:27 Common normals: no apparent distress, oriented x3, alert and well nourished General appearance: cooperative Orientation/consciousness: Yes awake [facility] Common normals: normocephalic, head/scalp atraumatic, hearing grossly normal suhail aterally and external nose normal Face and sinus: normal facial exam Nose: external nose normal Eye Common normals: PERRL, EOMs intact bilaterally, conjunctivae normal and no scleral icterus Alignment: alignment normal Eyelid: eyelids normal Conjunctiva: conjunctiva(e) normal Pupil: PERRL Chest Common normals: inspection of chest normal Chest: symmetrical chest wall rise Respiratory Common normals: normal respiratory effort, no retractions, no use of accessory muscles and clear to auscultation bilaterally Effort & inspection: able to speak in complete sentences Auscultation: diminished lung sounds (BLL) Cardio Common normals: no JVD, regular rate, regular rhythm, S1 normal heart sound, S2 normal heart sound, no gallops, no clicks, no rub and peripheral pulses 2+ throughout Heart sounds: murmur (HSM 3/6) GI Common normals: Normal to inspection, nondistended, normoactive bowel sounds present, soft to palpation, non-tender, no hepatosplenomegaly, no masses and no bruits Bladder/kidney exam: bladder normal to palpation Back & Pelvis Common normals: thoracic and lumbar spine normal to inspection Extremity Common normals: normal capillary refill and no pedal edema General: normal exam except as noted; no clubbing and no cyanosis Neuro Sugar Coma Scale: GCS not evaluated Common normals: oriented x3, CN's II-XII intact bilaterally, moves all extremities, no focal motor deficits and no sensory deficits noted Sensorium/orientation: awake and alert Speech: speech normal Motor exam: strength 5/5 throughout Psych Common normals: mental status grossly normal, thought process normal, affect normal and activity/motor behavior normal Progress Note: Objective Labs Labs: Short CBC 10/03/23 Range/Units 04:28 WBC 6.1 (4.0-11.0) 10^3/uL Hgb 9.3 L (12.0-16.0) g/dL Hct 30.1 L (36.0-48.0) % Plt Count 228 (150-450) 10^3/uL [facility] 10/03/23 04:28 Sodium 141 Potassium 3.7 Chloride 106 Carbon Dioxide 28.0 BUN 19.0 H Creatinine 1.37 H Glucose 183 H Calcium 8.7 Progress Note: A&P Assessment and Plan (1) Dehydration: (2) Weakness: (3) Hypomagnesemia: (4) Acute UTI: (5) Diabetes: (6) Depression: (7) GERD (gastroesophageal reflux disease): (8) CAD (coronary artery disease): (9) Breast CA: Plan Hyponatremia due to dehydration resulting in acute elevation of BUN and creatinine-creatinine somewhat elevated today.: BUN and creatinine-overall improved. Oral intake improving. Kilrpu-uwrbcvrgywvnv-qqphw stool for occult blood. Weakness: Acute UTI, dehydration, hypomagnesemia-patient still significant weakness with any ambulation. High fall so recommending rehab. Patient and family in agreement Hypomagnesemia: Continue to monitor Acute UTI: Failed on on OP Keflex-so added IV Cipro. Culture still pending Uncontrolled diabetes: Sugars somewhat better this morning. Continue to monitor Depression: Continue with home medications GERD: continue with home medications CAD: No chest pain but significant dyspnea. May need echocardiogram. Breast CA: Continue with home medications
[2023-10-03 11:48] LABS: Glucometer 251 mg/dL (74-106)
[2023-10-03 14:46] VITALS: BP 105/61; PULSE 67; RESP 18; TEMP 36.7; O2SAT 95
[2023-10-03 16:16] LABS: Glucometer 180 mg/dL (74-106)
[2023-10-03] MEDS: TRAZODONE HCL 50 MG TABLET 100 MG PO (21:35)
[2023-10-03] MEDS: CEFTRIAXONE 1,000 MG in 0.9 % SODIUM CHLORIDE 50 ML 100 MG IV (21:35)
[2023-10-03 21:42] LABS: Glucometer 197 mg/dL (74-106)
[2023-10-03] MEDS: INSULIN DETEMIR 300 UNIT/3 ML INSULN.PEN 20 UNIT SUBQ (21:42)
[2023-10-03 21:48] VITALS: BP 131/61; PULSE 72; RESP 20; TEMP 36.9; O2SAT 95
[2023-10-04] MEDS: CIPROFLOXACIN IN 5 % DEXTROSE 400 MG/200 ML PIGGYBACK 200 MG IV (01:20)
[2023-10-04 05:09] LABS: Basophils Percent Auto 0.4 % (0.2-2.0); Eosinophils Absolute Auto 0.4 10^3/uL (0.0-0.7); Eosinophils Percent Auto 5.2 % (0.9-7.0); Hematocrit 29.8 % (36.0-48.0); Hemoglobin 9.2 g/dL (12.0-16.0); Immature Granulocytes Abs Auto 0.02 10^3/uL (0.00-0.03); Immature Granulocytes Pct Auto 0.3 % (0.0-0.5); Lymphocytes Absolute Auto 2.2 10^3/uL (1.2-3.8); Lymphocytes Percent Auto 28.2 % (20.5-60.0); Mean Corpuscular HGB Conc 30.9 g/dL (29.9-35.2); Mean Corpuscular Hemoglobin 28.1 pg (26.7-34.0); Mean Corpuscular Volume 91.1 fL (81.0-99.0); Mean Platelet Volume 10.8 fL (9.5-13.5); Monocytes Absolute Auto 0.9 10^3/uL (0.3-0.8); Monocytes Percent Auto 11.1 % (1.7-12.0); Neutrophils Absolute Auto 4.2 10^3/uL (1.4-6.5); Neutrophils Percent Auto 54.8 % (43.0-75.0); Platelet Count 226 10^3/uL (150-450); Red Blood Count 3.27 10^6/uL (4.20-5.40); Red Cell Distribution Width 14.6 % (11.0-15.0); White Blood Count 7.7 10^3/uL (4.0-11.0)
[2023-10-04 05:40] LABS: Anion Gap 12.4; BUN Creatinine Ratio 17.9; Calcium 8.7 mg/dL (8.5-10.1); Carbon Dioxide 26.6 mmol/L (21.0-32.0); Chloride 103 mmol/L (98-107); Estimated GFR (African America 44 (>=60); Estimated GFR (Non-African Ame 36 (>=60); Glucose 189 mg/dL (74-106); Sodium 138 mmol/L (136-145)
[2023-10-04 05:50] VITALS: BP 122/68; PULSE 67; RESP 20; TEMP 36.2; O2SAT 94
[2023-10-04 07:56] LABS: Glucometer 150 mg/dL (74-106)
[2023-10-04] MEDS: INSULIN ASPART 300 UNIT/3 ML PEN SUBQ ×4 (07:58→21:26)
[2023-10-04 08:00] VITALS: RESP 17
[2023-10-04 08:05] VITALS: BP 166/68; PULSE 58; RESP 17; TEMP 36.2; O2SAT 96
[2023-10-04] MEDS: OMEPRAZOLE 40 MG CAPSULE.DR PO (09:19)
[2023-10-04] MEDS: CLOPIDOGREL BISULFATE 75 MG TABLET PO (09:19)
[2023-10-04] MEDS: SERTRALINE HCL 100 MG TABLET PO (09:21)
[2023-10-04] MEDS: LETROZOLE 2.5 MG 2.5 EACH PO (09:21)
[2023-10-04] MEDS: METOPROLOL SUCCINATE 50 MG TAB.ER.24H PO (09:21)
[2023-10-04] MEDS: GABAPENTIN 300 MG CAPSULE PO ×2 (09:22→21:22)
--- NOTE | 2023-10-04 09:39 | CM.NOTE ---
Rounds made with Dr. Lara. Awaiting precert for [facility]. No changes.
--- NOTE | 2023-10-04 09:57 | PT.DAILY ---
Physical Therapy Daily Note PT Daily Note/Assess Start: 10/02/23 10:26 Freq: Status: Active Protocol: Document 10/04/23 09:54 ANGELA (Rec: 10/04/23 09:57 ANGELA [id number]) Physical Therapy Daily Note/Assessment Time In/Time Out Time In 09:41 Time Out 09:53 Pain In Pain N/A Pain Out Pain N/A Subjective Subjective Pt sitting in BS chair upon arrival. Agrees to PT. Anxiously waiting to hear back from SNF for DC. Therapeutic Exercise Time Therapeutic Exercise Minutes (minutes) 3 Therapeutic Exercise Units 0 Therapeutic Exercise Treatment Therapeutic Exercise Treatment Bilat LE strengthening ex complete in BS chair 10x ea to improve functional mobility prior to gait. Therapeutic Activity Time Therapeutic Activity Minutes (minutes) 8 Therapeutic Activity Units 1 Therapeutic Activity Treatment Chair Transfer Ability Contact Guard Assist Therapeutic Activity Comments Sit>stand 3x - CGA but no assistance needed today just increased time. Pt then amb 80 ' with RW, CGA with 2x standing rest breaks due to fatigue. No LOB but slow lexi noticed. Returned to BS chair upon completion with call light in reach and needs met. Total Physical Therapy Time Total Therapy Minutes 11 Total Physical Therapy Units 1 Summary Daily Note Summary Improved gait distance today but cont to get very easily fatigued with gait. Improved sit>stand transfers but does require increased time.
--- NOTE | 2023-10-04 10:00 | CM.NOTE ---
Called [facility] regarding precert on pt for skilled therapy, left message.
--- NOTE | 2023-10-04 10:36 | CM.NOTE ---
2nd Notice Important Message From Medicare discussed with pt, denies any questions or concerns.
--- NOTE | 2023-10-04 11:24 | CM.NOTE ---
Called [facility] and spoke with Jasson, faxed over updated PT notes and progress notes.
[2023-10-04 11:48] LABS: Glucometer 239 mg/dL (74-106)
[2023-10-04] MEDS: CIPROFLOXACIN HCL 500 MG TABLET PO ×2 (12:58→21:22)
[2023-10-04 13:31] VITALS: BP 138/67; PULSE 65; RESP 18; TEMP 37.1; O2SAT 96
--- NOTE | 2023-10-04 14:28 | P.PN_ITS ---
Agree with input and ex hopinf for rehab soon Progress Note: Subjective Subjective Interval history: Date/time of exam: 10/04/23 0845 The patient is sitting up in bed eating her breakfast. Overall she states she feels a little improved but continues to be very weak and has difficulty with ambulation. Discharge pending in the next 24 hours likely either to SNF facility for rehab or home with home health. Exam Constitutional Vital Signs, click to edit/add: Last Vital Signs Temp 98.7 F 10/04/23 13:31 Pulse 65 10/04/23 13:31 Resp 18 10/04/23 13:31 BP 138/67 10/04/23 13:31 Pulse Ox 96 10/04/23 13:31 O2 Del Method Room Air 10/04/23 13:31 Common normals: no apparent distress, oriented x3 and alert General appearance: cooperative Orientation/consciousness: Yes awake HENMT Common normals: normocephalic, head/scalp atraumatic and hearing grossly normal bilaterally Head and scalp: normocephalic Eye Common normals: PERRL, EOMs intact bilaterally, conjunctivae normal and no scleral icterus General eye: normal appearance of both eyes Chest Common normals: inspection of chest normal Chest: symmetrical chest wall rise Respiratory Common normals: normal respiratory effort, no use of accessory muscles and clear to auscultation bilaterally Effort & inspection: able to speak in complete sentences Cardio Common normals: regular rate, regular rhythm, S1 normal heart sound, S2 normal heart sound, no murmurs and peripheral pulses 2+ throughout Heart sounds: murmur (HSM 2/6) GI Common normals: Normal to inspection, nondistended, normoactive bowel sounds present, soft to palpation, non-tender and no hepatosplenomegaly Bladder/kidney exam: bladder normal to palpation Extremity Common normals: normal to inspection and no calf tenderness General: no clubbing, no cyanosis and no edema Neuro Common normals: CN's II-XII intact bilaterally, moves all extremities, no focal motor deficits and no sensory deficits noted Psych Common normals: mental status grossly normal Progress Note: Objective Labs Labs: Short CBC 10/04/23 Range/Units 04:42 WBC 7.7 (4.0-11.0) 10^3/uL Hgb 9.2 L (12.0-16.0) g/dL Hct 29.8 L (36.0-48.0) % Plt Count 226 (150-450) 10^3/uL BMP 10/04/23 04:42 Sodium 138 Potassium 4.0 Chloride 103 Carbon Dioxide 26.6 BUN 25.0 H Creatinine 1.40 H Glucose 189 H Calcium 8.7 Progress Note: A&P Assessment and Plan (1) Dehydration: Assessment and Plan: ACUTE * Resolving * IVF saline locked * Monitor for recurrence w/o IVF * BMP daily * Disposition: likely d/c home w/ home health vs SNF for rehab in the next 24-48 hrs (2) Weakness: Assessment and Plan: ACUTE * Multifactorial - Acute UTI, dehydration, hypomagnesemia * PT/OT consults for eval and treat * Consider SNF for rehab strengthening vs home with home health pending clinical course (3) Hypomagnesemia: Assessment and Plan: ACUTE * Resolved (4) Acute UTI: Assessment and Plan: ACUTE * Continue Cipro x 1 more day, d/c rocephin. Day 03/19 * Urine culture w/no growth. Unclear if culture was obtained prior to ABX administration (5) Diabetes: Assessment and Plan: CHRONIC * Poor control * Continue home Levemir and SS insulin correction * Resume Januvia in AM * ACHS glucometer checks * Med CC diet (6) GERD (gastroesophageal reflux disease): Assessment and Plan: CHRONIC * Continue home PPI (7) CAD (coronary artery disease): Assessment and Plan: CHRONIC * Continue home plavix and metoprolol (8) Breast CA: Assessment and Plan: CHRONIC * Continue home letrozole (9) Depression:
--- NOTE | 2023-10-04 14:41 | CM.NOTE ---
Pt's daughter called, she states that she reached out to [place] regarding precet. No approval at this time. Daughter voices her concern of letting pt return home d/t weakness and safety until she would get a little stronger. Pt in agreement. Messaged LILIA Lai about daughter's concerns.
[2023-10-04 16:08] LABS: Glucometer 240 mg/dL (74-106)
[2023-10-04] MEDS: TRAZODONE HCL 50 MG TABLET 100 MG PO (21:22)
[2023-10-04] MEDS: INSULIN DETEMIR 300 UNIT/3 ML INSULN.PEN 20 UNIT SUBQ (21:26)
[2023-10-04 21:32] VITALS: BP 131/64; PULSE 68; RESP 20; TEMP 36.9; O2SAT 96
[2023-10-04 21:32] LABS: Glucometer 261 mg/dL (74-106)
[2023-10-05 05:20] VITALS: BP 123/61; PULSE 61; RESP 18; TEMP 36.3; O2SAT 99
[2023-10-05 05:56] LABS: Basophils Absolute Auto 0.1 10^3/uL (0.0-0.1); Basophils Percent Auto 0.7 % (0.2-2.0); Eosinophils Absolute Auto 0.3 10^3/uL (0.0-0.7); Eosinophils Percent Auto 4.5 % (0.9-7.0); Hematocrit 30.4 % (36.0-48.0); Hemoglobin 9.1 g/dL (12.0-16.0); Immature Granulocytes Abs Auto 0.02 10^3/uL (0.00-0.03); Immature Granulocytes Pct Auto 0.3 % (0.0-0.5); Lymphocytes Absolute Auto 2.6 10^3/uL (1.2-3.8); Lymphocytes Percent Auto 33.9 % (20.5-60.0); Mean Corpuscular HGB Conc 29.9 g/dL (29.9-35.2); Mean Corpuscular Hemoglobin 27.6 pg (26.7-34.0); Mean Corpuscular Volume 92.1 fL (81.0-99.0); Mean Platelet Volume 10.9 fL (9.5-13.5); Monocytes Absolute Auto 0.8 10^3/uL (0.3-0.8); Monocytes Percent Auto 10.8 % (1.7-12.0); Neutrophils Absolute Auto 3.8 10^3/uL (1.4-6.5); Neutrophils Percent Auto 49.8 % (43.0-75.0); Platelet Count 223 10^3/uL (150-450); Red Cell Distribution Width 14.6 % (11.0-15.0); White Blood Count 7.6 10^3/uL (4.0-11.0)
[2023-10-05 06:07] LABS: Anion Gap 10.2; BUN Creatinine Ratio 20.9; Calcium 8.8 mg/dL (8.5-10.1); Chloride 105 mmol/L (98-107); Estimated GFR (African America 45 (>=60); Estimated GFR (Non-African Ame 37 (>=60); Glucose 146 mg/dL (74-106); Potassium 4.2 mmol/L (3.5-5.1); Sodium 140 mmol/L (136-145)
[2023-10-05 07:24] LABS: Glucometer 145 mg/dL (74-106)
[2023-10-05] MEDS: INSULIN ASPART 300 UNIT/3 ML PEN SUBQ ×2 (07:43→11:18)
--- NOTE | 2023-10-05 07:54 | P.DS_ITS ---
carl with PE findinga nd summary as indicatd. Sugars elevated , may need outpt adjustment in meds DS: Providers Provider Date of admission: 10/02/23 10:14 Primary care physician: PAM STINSON Consults: 10/01/23 08:58 Occupational Therapy Eval and Treat Routine Reason for consultation: weakness Has provider been notified: No Physical Therapy Eval and Treat Routine Reason for consultation: weakness Has provider been notified: No Discharging clinician: Joelle Goncalves DS: Diagnosis Discharge Diagnosis (1) Acute UTI: (2) Dehydration: (3) Hyponatremia: (4) Weakness: (5) Hypomagnesemia: (6) Diabetes: (7) GERD (gastroesophageal reflux disease): (8) CAD (coronary artery disease): (9) Breast CA: (10) Depression: DS: Summary Hospital Course Hospital Course: The patient was admitted to observation with a UTI that failed outpatient treatment and dehydration with associated hyponatremia and severe weakness. She was treated initially with IVFs and IVPB Rocephin and then ciprofloxacin was added and she was changed to an inpatient status. Her urine culture was negative for growth but it is unclear if this was obtained prior to antibiotic administration. She was seen by PT and OT for strengthening and did see improvement in her ability to ambulate and manage her ADLs. She was noted to be hypomagnesemic on admission and this was repleted and did not recur. Her hyponatremia resolved w/ her dehydration after IVF administration. She has seen improvement since her admission, she is being discharged in stable condition home with home health services for further detention monitoring of her medical conditions and and PT OT services. She should follow-up with her PCP in 3 to 5 days and we recommend follow-up labs with a BMP and a magnesium level as an outpatient but defer this to her PCP. Time Spent with Patient Time attestation: Total time spent providing and/or coordinating discharge services: Time spent: greater than 30 minutes Specific discharge activities: Physical exam, discussion of discharge plan, questions answered. Exam Constitutional Vital Signs, click to edit/add: Last Vital Signs Temp 97.3 F L 10/05/23 05:20 Pulse 61 10/05/23 05:20 Resp 18 10/05/23 05:20 BP 123/61 10/05/23 05:20 Pulse Ox 99 10/05/23 05:20 O2 Del Method Room Air 10/05/23 05:20 Common normals: no apparent distress, oriented x3 and alert General appearance: cooperative Orientation/consciousness: Yes awake HENMT Common normals: normocephalic and head/scalp atraumatic Head and scalp: normocephalic Eye Common normals: PERRL, EOMs intact bilaterally, conjunctivae normal and no scleral icterus Respiratory Common normals: normal respiratory effort, no use of accessory muscles and clear to auscultation bilaterally Effort & inspection: able to speak in complete sentences and symmetric chest movement Auscultation: diminished lung sounds (BLL) Cardio Common normals: no JVD, regular rate, regular rhythm, S1 normal heart sound and peripheral pulses 2+ throughout Heart sounds: murmur (HSM 3/6); S2 abnormal (snap) GI Common normals: Normal to inspection, nondistended, normoactive bowel sounds present, soft to palpation and non-tender Bladder/kidney exam: bladder normal to palpation Extremity Common normals: normal to inspection, full ROM, normal capillary refill and no pedal edema General: no clubbing and no cyanosis Neuro Common normals: oriented x3, moves all extremities, no focal motor deficits and no sensory deficits noted Sensorium/orientation: awake and alert Speech: speech normal Psych Common normals: mental status grossly normal and activity/motor behavior normal DS: Data Data Completed and Pending Labs on day of discharge: Labs from last 24 hours 10/05/23 10/05/23 10/04/23 07:24 04:51 21:26 WBC 7.6 RBC 3.30 L Hgb 9.1 L Hct 30.4 L MCV 92.1 MCH 27.6 MCHC 29.9 RDW 14.6 Plt Count 223 MPV 10.9 Neut % (Auto) 49.8 Lymph % (Auto) 33.9 Bradley % (Auto) 10.8 Eos % (Auto) 4.5 Baso % (Auto) 0.7 Neut # (Auto) 3.8 Lymph # (Auto) 2.6 Bradley # (Auto) 0.8 Eos # (Auto) 0.3 Baso # (Auto) 0.1 Abs Immat Gran (auto) 0.02 Imm/Tot Granulo (auto) 0.3 Sodium 140 Potassium 4.2 Chloride 105 Carbon Dioxide 29.0 Anion Gap 10.2 BUN 29.0 H Creatinine 1.39 H Est GFR ( Amer) 45 L Est GFR (Non-Af Amer) 37 L BUN/Creatinine Ratio 20.9 Glucose 146 H Calcium 8.8 POC Glucose 145 H 261 H 10/04/23 10/04/23 10/04/23 16:07 11:47 07:55 WBC RBC Hgb Hct MCV MCH MCHC RDW Plt Count MPV Neut % (Auto) Lymph % (Auto) Bradley % (Auto) Eos % (Auto) Baso % (Auto) Neut # (Auto) Lymph # (Auto) Bradley # (Auto) Eos # (Auto) Baso # (Auto) Abs Immat Gran (auto) Imm/Tot Granulo (auto) Sodium Potassium Chloride Carbon Dioxide Anion Gap BUN Creatinine Est GFR ( Amer) Est GFR (Non-Af Amer) BUN/Creatinine Ratio Glucose Calcium POC Glucose 240 H 239 H 150 H Discharge Plan Discharge Disposition: Home Health Service Condition: Good Discharge Medications: Continued metoprolol succinate 50 mg tablet extended release 24 hr 50 mg PO QDAY sertraline 100 mg tablet 100 mg PO QAM clopidogrel 75 mg tablet 75 mg PO QDAY trazodone 100 mg tablet 100 mg PO QPM pantoprazole 40 mg tablet,delayed release (DR/EC) 40 mg PO QDAY gabapentin 300 mg capsule 300 mg PO Q12H letrozole 2.5 mg tablet 2.5 mg PO Q24H ondansetron 4 mg tablet,disintegrating 4 mg PO Q8H PRN (Reason: nausea and vomiting) Levemir FlexPen 100 unit/mL (3 mL) insulin pen 30 unit SUBCUT QPM Januvia 50 mg tablet 50 mg PO QAM Discontinued cephalexin 500 mg capsule 500 mg PO Q8H Rx Instructions: X10 DAYS PER RETAIL FILL HX. LAST FILLED 09/25/23 Activity: ambulate only with your walker Diet: diabetic diet Patient Instructions: Dehydration (DC), Urinary Tract Infection in Older Adults (DC) Activity Restrictions/Additional Instructions: - Consider repeat BMP, mag level in 1-2 weeks - dehydration, hyponatremia, hypomagnesemia - Push oral fluids. Goal: 64 oz at least per day (four 16 oz water bottles) Forms: Portal Instructions Follow Up Appointments: Follow up appt. with Pam Stinson NP on Oct 18 @ 11:30am office location: [facility] [address] [place], office #: [phone] Discharge Date/Time: 10/05/23 12:45
[2023-10-05 08:00] VITALS: RESP 18
--- NOTE | 2023-10-05 08:59 | CM.NOTE ---
Discussed with pt insurance denial for halfway facility and option for [facility] to attempt to overturn. Pt voices that she wants to just go home with HH services. Pt's choice after given Medicare 5 star rating is [facility]. Faxed H&P, discharge summary, medication list, progress notes, recent vitals, skilled referral form with orders.
[2023-10-05] MEDS: CIPROFLOXACIN HCL 500 MG TABLET PO (09:16)
[2023-10-05] MEDS: OMEPRAZOLE 40 MG CAPSULE.DR PO (09:16)
[2023-10-05] MEDS: METOPROLOL SUCCINATE 50 MG TAB.ER.24H PO (09:16)
[2023-10-05] MEDS: SERTRALINE HCL 100 MG TABLET PO (09:16)
[2023-10-05] MEDS: SITAGLIPTIN PHOSPHATE 50 MG TABLET PO (09:16)
[2023-10-05] MEDS: LETROZOLE 2.5 MG 2.5 EACH PO (09:17)
[2023-10-05] MEDS: CLOPIDOGREL BISULFATE 75 MG TABLET PO (09:17)
[2023-10-05] MEDS: GABAPENTIN 300 MG CAPSULE PO (09:19)
--- NOTE | 2023-10-05 09:22 | CM.NOTE ---
Rounds made with Dr. Lara. Plan for discharge home with Home Health today.
--- NOTE | 2023-10-05 10:05 | PT.DAILY ---
Physical Therapy Daily Note PT Daily Note/Assess Start: 10/02/23 10:26 Freq: Status: Active Protocol: Document 10/05/23 09:59 ANGELA (Rec: 10/05/23 10:04 ANGELA [id number]) Physical Therapy Daily Note/Assessment Time In/Time Out Time In 09:10 Time Out 09:28 Pain In Pain N/A Pain Out Pain N/A Subjective Subjective Sitting EOB with nursing upon arrival. Needs to use restroom and agrees to have therapist assist with this. Therapeutic Exercise Time Therapeutic Exercise Minutes (minutes) 3 Therapeutic Exercise Units 0 Therapeutic Exercise Treatment Therapeutic Exercise Treatment Seated bilat LE strengthening ex complete in BS chair 10x ea . Therapeutic Activity Time Therapeutic Activity Minutes (minutes) 12 Therapeutic Activity Units 1 Therapeutic Activity Treatment Chair Transfer Ability Contact Guard Assist Therapeutic Activity Comments Pt performs sit>stand from EOB to RW CGA. Pt amb 20' to restroom SBA. Pt performs toilet transfer with grab bar SBA. While pt sitting on toilet pt wishes to get washed up. Pt able to doff gown once its untied for her. Pt washes face and upper body with set up only. Pt need assistance to wash back and periarea. Pt needs min assistance to johanna new gown. SIt>stand from toilet using grab bar SBA. Pt Needs assistance to pull up underwear. Pt amb around room over to BS chair 35' with RW SBA. Fatigued upon completion. Seated rest break taken before bilat LE strengthening ex complete in BS chair. Remains in BS chair upon completion with call light in reach and needs met. Total Physical Therapy Time Total Therapy Minutes 15 Total Physical Therapy Units 1 Summary Daily Note Summary Fair tolerance with session. Cont to get very fatigued with limited standing activity. Pt now plans to return home with HH vs SNF.
[2023-10-05 10:48] LABS: Glucometer 252 mg/dL (74-106)
--- NOTE | 2023-10-05 11:45 | CM.NOTE ---
[facility] will accept pt, set up [facility] to pick pt up at discharge. Transport time between 12:45-1:15. Notified pt and daughter regarding transport time.
--- NOTE | 2023-10-06 12:06 | CM.DCFOLLOWU ---
First call back attempted 10/06. No answer and call went directly to voicemail. Unable to contact patient at this time.
--- NOTE | 2023-10-11 11:31 | CM.DCFOLLOWU ---
Person spoke with: patient How are you feeling? really good How is your pain? none Did you understand your discharge instructions? yes Do you have any questions about your discharge instructions? no Were you given any prescriptions at discharge? no Were you able to get your prescriptions filled? n/a Do you understand how to take your medications as ordered? patient voiced she has no questions about her current medications and understands how to take them. Do you have any questions about your follow up appointment and do you plan to keep your follow up appointment? appointment on 10/18 and patient plans to keep the appointment. Is there anything else that you would like to discuss? no Questions/Comments/Concerns/Other: n/a
--- OUTSIDE RECORDS SUMMARY | 2023-11-24 13:26 | XMS_ITS | CCD ---
Author Name Unknown Address [address] [place] [address] Organization [facility] Care Team Providers Care [address] [facility] Guard Name Role Phone Caden Sanchez Primary Care Provider UnavailLAKESHIA Kramer Referring Unavailable CADEN SANCHEZ Primary Care Unavailable ELIZABETH TOMLINSON Referring Unavailable CADEN SANCHEZ Primary Care Unavailable PAM LEY Primary Care Unavailable ASHLEE, DR PADILLA Attending Unavailable ASHLEE, DR PADILLA Consulting Unavailable ASHLEE, DR PADILLA Admitting Unavailable COREY, DR GIOVANNY Tuttle Consulting Unavailable Jorge Bowserison Admitting Unavailable Jorge Bowserison Attending Unavailable GIOVANNY LOGAN Referring Unavailable GIOVANNY LOGAN Primary Care Unavailable CasiCaden stallworth Primary Care Provider Unavaildeshawn Ley BANKRUPTCY LAW SPECIALIST - RADAR TESTER, Pam De La Rosa Primary Care Prov ider JEREMIAH AMEER Referring Unavailable CADEN SANCHEZ Primary Care Unavailable JEREMIAH, AMEER Admitting Unavailable JEREMIAH, AMEER Attending Unavailable NAMRATA BLAIR Referring Unavailable PAM LEY Primary Care Unavailable NAMRATA BLAIR Referring Unavailable PAM LEY Primary Care Unavailable JEREMIAH, AMEER Attending Unavailable JEREMIAH, AMEER Referring Unavailable CADEN SANCHEZ Primary Care Unavailable JEREMIAH, AMEER Attending Unavailable JEREMIAH, AMEER Referring Unavailable CADEN SANCHEZ Primary Care Unavailable FLIP JHA Referring Unavailable CADEN SANCHEZ Primary Care Unavailable JEREMIAH, AMEER Referring Unavailable CADEN SANCHEZ Primary Care Unavailable JEREMIAH, AMEER Admitting Unavailable JEREMIAH, AMEER Attending Unavailable BRENNAN CLADERA Consulting Unavailable CADEN SANCHEZ Primary Care Unavailable CHARMAINE BLAND Consulting Unavailable MARITZA MIDDLETON Attending Unavailable MARITZA MIDDLETON Admitting Unavailable VALE BOWSER Referring Unavailable VALE BOWSER Referring Unavailable VALE BOWSER Referring Unavailable VALE BOWSER Attending Unavailable Allergies Allergy Classification Reported Allergen(s) Allergy Type Date of Onset Reaction(s) Facility (1 source) [address]5524,00 Drug allergy (disorder) 01-23-2020 [facility] Repository Medications Current Medications Medication Drug Class(es) Dates Sig (Normalized) Sig (Original) amLODIPine 5 mg oral tablet (6 sources) Dihydropyridine Calcium Channel Oracio take 1 tablet by mouth once daily amLODIPine (NORVASC) 5 MG tablet Take 5 mg by mouth daily 0 Active aspirin 81 mg chewable tablet (9 sources) Platelet Aggregation Inhibitor, Nonsteroidal Anti-inflammatory Drug Start: 09-30-2022 take 1 tablet by mouth once daily aspirin 81 MG chewable tablet Take 1 tablet by mouth daily 30 tablet 3 09/30/2022 Active take 1 tablet by mouth once stacy y aspirin 81 MG tablet Take 81 mg by mouth daily. 0 Active atorvastatin 80 mg oral tablet (8 sources) HMG-CoA Reductase Inhibitor Start: 09-29-2022 take 1 tablet by mouth once daily atorvastatin (LIPITOR) 80 MG tablet Take 1 tablet by mouth nightly 30 tablet 3 09/29/2022 Active bisacodyl 5 mg delayed release oral tablet (1 source) Stimulant Laxative Start: 12-09-2022 bisacodyl (DULCOLAX) EC tablet 10 mg clopidogrel 75 mg oral tablet (14 sources) P2Y12 Platelet Inhibitor Start: 09-29-2022 take 1 tablet by mouth once daily clopidogrel (PLAVIX) 75 MG tablet Take 1 tablet by mouth daily 30 tablet 3 12/11/2022 Active gabapentin 100 mg oral capsule (6 sources) Anti-epileptic Agent take 1 capsule by mouth in the morning gabapentin (NEURONTIN) 100 MG capsule Take 100 mg by mouth in the morning and 100 mg in the evening. 0 Active glucagon (rdna) 1 mg injection (1 source) Antihypoglycemic Agent Start: 12-10-2022 glucagon (rDNA) injection 1 mg 1000 ml glucose 100 mg/ml injection (3 sources) Start: 12-10-2022 dextrose 10 % infusion Start: 12-10-2022 dextrose bolus 10% 125 mL Start: 12-10-2022 glucose chewab le tablet 16 g hydroCHLOROthiazide 25 mg oral tablet (8 sources) Thiazide Diuretic take 1 tablet by mouth once daily hydrochlorothiazide (HYDRODIURIL) 25 MG tablet Take 25 mg by mouth daily. 0 Active 3 ml insulin aspart, human 100 unt/ml pen injector (8 sources) Insulin Analog insulin aspart ( NOVOLOG) 100 UNIT/ML injection pen Inject into the skin 3 times daily (before meals). Takes 3 to 4 times daily based on glucose / sliding scale used 0 Active 3 ml insulin detemir 100 unt/ml pen injector (8 sources) Insulin Analog insulin detemir (LEVEMIR) 100 UNIT/ML injection pen Inject 40 Units into the skin nightly. 0 Active insulin glargine 100 unt/ml injectable solution (2 sources) Insulin Analog Start: 023 insulin glargine (LANTUS) injection vial 10 Units Start: 12-07-2022 End: 12-10-2022 insulin glargine (LANTUS) in jection vial 20 Units metoprolol tartrate 50 mg oral tablet (8 sources) beta-Adrenergic Oracio take 1 tablet by mouth twice daily metoprolol (LOPRESSOR) 50 MG tablet Take 50 mg by mouth 2 times daily. 0 Active oxybutynin chloride 5 mg oral tablet (6 sources) Cholinergic Muscarinic Antagonist take 1 tablet by mouth once daily oxybutynin (DITROPAN) 5 MG tablet Take 5 mg by mouth daily 0 Active pantoprazole 40 mg oral granules (6 sources) Proton Pump Inhibitor take 40 mg by mouth once daily before breakfast pantoprazole sodium (PROTONIX) 40 MG PACK packet Take 40 mg by mouth every morning (before breakfast) 0 Active SITagliptin 50 mg oral tablet (8 sources) Dipeptidyl Peptidase 4 Inhibitor take 1 tablet by mouth once daily sitaGLIPtin (JANUVIA) 50 MG tablet Take 50 mg by mouth daily. 0 Active Completed/Discontinued Medications Medication Drug Class(es) Dates Sig (Normalized) Sig (Original) acetaminophen 325 mg oral tablet (1 source) Start: 12-07-2022 take 650 mg by mouth every four hours as needed, then take 4000 mg by mouth every twenty-four hours as needed 650 mg, Oral, EVERY 4 HOURS PRN, Starting on 12/07/22 at 1618, Until Discontinued, Pain Mild (1-3), Fever, Fever >100.5 F (38 C) Maximum dose of acetaminophen is 4000 mg from all sources in 24 hours. Recovery(Cath) iopamidol (ISOVUE-370) 76 % injection 180 mL (1 source) Start: 01-13-2023 End: 01-13-2023 iopamidol (ISOVUE-370) 76 % injection 180 mL 2 ml ondansetron 2 mg/ml injection (1 source) Serotonin-3 Receptor Antagonist Start: 12-07-2022 End: 12-07-2022 ondansetron (ZOFRAN) injection 4 mg Start: 12-07-2022 End: 12-07-2022 ondansetron (ZOFRAN) injecti on 4 mg polyethylene glycol [id number] [id number] mg powder for oral solution (1 source) Osmotic Laxative Start: 12-09-2022 End: 12-09-2022 polyethylene glycol (GLYCOLAX) packet 17 g sertraline 50 mg oral tablet (7 sources) Serotonin Reuptake Inhibitor Start: 12-07-2022 take 100 mg by mouth once daily 100 mg, Oral, DAILY, First dose on Wed12/07/22 at 1645, Until Discontinued take 1 tablet by mouth once stacy y sertraline (ZOLOFT) 100 MG tablet Take 100 mg by mouth daily 0 Active 1000 ml sodium chloride 9 mg /ml injection (9 sources) Start: 01-13-2023 End: 01-13-2023 0.9 % sodium chloride infusi on Start: 12-07-2022 take 1 dose intraven ously twice daily 5-40 mL, IntraVENous, EVERY 12 HOURS SCHEDULED (2 times per day), First dose on Wed12/07/22 at 2100, Until Discontinued For Line Patency: Peripheral IV = 5 mL; Midline or Central Line = 10 mL/lumen. If following IV push medication, administer flush at same rate as the IV push. Flush volume is determined by type of infusion therapy being given. For non-viscous solutions use: Peripheral IV = 5 mL Midline or Central Line = 10 mL/lumen For viscous solutions (i.e. blood components, parenteral nutrition, contrast media, or after obtaining blood sample) use: Peripheral IV = 10 mL Midline or Central Line = 20 mL/lumen Recovery(Cath) Start: 12-07-2022 IntraVENous, a t 5-250 mL/hr, PRN, if patient receiving piggyback infusions and maintenance fluids are not ordered OR KVO fluids to protect IV site / prevent frequent line interruptions/ long duration, Starting on Wed12/07/22 at 1618 For piggyback infusion, administer at same rate as piggyback for a total of 25 mL. Enter 25 mL into dose field and piggyback rate into rate field of order. If piggyback is infusing at a rate less than 100 mL/hr, enter 25 mL into dose field and 100 mL/hr into rate field of order. For KVO fluids, enter rate of 20 mL/hr or less into rate field of order. Recovery(Cath) Start: 12-07-2022 take 5-40 mL intrave nously once as needed 5-40 mL, IntraVENous, PRN, Starting on Wed12/07/22 at 1618, Until Discontinued, Line Care, After every IV line use For Line Patency: Peripheral IV = 5 mL; Midline or Central Line = 10 mL/lumen. If following IV push medication, administer flush at same rate as the IV push. Flush volume is determined by type of infusion therapy being given. For non-viscous solutions use: Peripheral IV = 5 mL Midline or Central Line = 10 mL/lumen For viscous solutions (i.e. blood components, parenteral nutrition, contrast media, or after obtaining blood sample) use: Peripheral IV = 10 mL Midline or Central Line = 20 mL/lumen Recovery(Cath) Start: 12-07-2022 End: 12-10-2022 0.9 % sodium chloride infusi on Start: 11-24-2022 0.9 % sodium c hloride infusion Problems Active Problems Problem Classification Problem Date Documented Date Episodic/Chronic Acute and unspecified renal failure (8 sources) Acute injury of kidney; Translations: [Acute kidney failure, unspecified] Onset: 3 Episodic Acute myocardial infarction (8 sources) Myocardial infarction; Translations: [Non-ST elevation (NSTEMI) myocardial infarction] Onset: 2 09-29-2022 Chronic Asthma (1 source) Unspecified asthma, uncomplicated; Translations: [UNSPECIFIED ASTHMA UNCOMPLICATED] Onset: 1 Chronic Chronic kidney disease (6 sources) Chronic kidney disease; Translations: [Chronic kidney disease, unspecified] Onset: 3 01-13-2023 Chronic Chronic kidney disease (1 source) Chronic kidney disease; Translations: [Chronic kidney disease, stage 3a] Onset: 3 Chronic obstructive pulmonary disease and bronchiectasis (1 source) Chronic obstructive pulmonary disease, unspecified; Translations: [Chronic obstructive pulmonary disease, unspecified] Onset: 2 Chronic Coronary atherosclerosis and other heart disease (9 sources) Disorder of coronary artery; Translations: [Atherosclerotic heart disease of [place] coronary artery without angina pectoris] Onset: 3 01-13-2023 Chronic Deficiency and other anemia (5 sources) Anemia; Translations: [Anemia, unspecified] Onset: 3 01-13-2023 Episodic Diabetes mellitus with complications (7 sources) Type 2 diabetes mellitus; Translations: [Type 2 diabetes mellitus with diabetic neuropathy, unspecified] Onset: 3 01-13-2023 Chronic Diabetes mellitus without complication (1 source) Type 2 diabetes mellitus without complications; Translations: [TYPE 2 DM WITHOUT COMPLICATIONS] Onset: 1 Chronic Disorders of lipid metabolism (1 source) Pure hypercholesterolemia, unspecified; Translations: [PURE HYPERCHOLESTEROLEMIA UNSPEC] Onset: 1 Chronic Esophageal disorders (1 source) Gastro-esophageal reflux disease without esophagitis; Translations: [GERD WITHOUT ESOPHAGITIS] Onset: 1 Chronic Essential hypertension (1 source) Essential (primary) hypertension; Translations: [ESSENTIAL PRIMARY HYPERTENSION] Onset: 1 Chronic Heart valve disorders (12 sources) Nonrheumatic aortic (valve) stenosis; Translations: [Aortic valve disorders] Onset: 2 10-13-2022 Chronic Mood disorders (1 source) Major depressive disorder, single episode, unspecified; Translations: [ROSALIO DEPRESS D/O SINGLE EPIS UNS] Onset: 1 Chronic Other aftercare (2 sources) jail (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; Translations: [SPEECH LANGUAGE PATHOLOGY ASSISTANT CURRENT USE OF INSULIN] Onset: 1 Episodic Other aftercare (1 source) Other termite renewal inspector (current) drug therapy; Translations: [OTH CARE HOME CURRENT 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] Onset: 1 Episodic Other circulatory disease (6 sources) History of angioplasty; Translations: [Peripheral vascular angioplasty status with implants and grafts] Onset: 3 12-07-2022 Chronic Other lower respiratory disease (2 sources) Shortness of breath; Translations: [Shortness of breath] Onset: 3 Episodic Other nervous system disorders (2 sources) (Idiopathic) normal pressure hydrocephalus; Translations: [(Idiopathic) normal pressure hydrocephalus] Onset: 3 Chronic Other nervous system disorders (6 sources) Tremor; Translations: [Tremor, unspecified] Onset: 3 01-13-2023 Episodic Other nervous system disorders (1 source) Tremor, unspecified; Translations: [Tremor, unspecified] Onset: 3 Episodic Peripheral and visceral atherosclerosis (1 source) Peripheral vascular disease, unspecified; Translations: [PERIPHERAL VASCULAR DISEASE UNS] Onset: 1 Chronic Residual codes; unclassified (2 sources) Obstructive sleep apnea (adult) (pediatric); Translations: [OBSTRUCTIVE SLEEP APNEA] Onset: 1 Chronic Residual codes; unclassified (6 sources) Obstructive sleep apnea syndrome; Translations: [Obstructive sleep apnea (adult) (pediatric)] Onset: 3 01-13-2023 Chronic Residual codes; unclassified (5 sources) H/O: blood transfusion; Translations: [Personal history of other medical treatment] Onset: 3 01-13-2023 Episodic Residual codes; unclassified (6 sources) Family history of coronary arteriosclerosis; Translations: [Family history of ischemic heart disease and other diseases of the circulatory system] Onset: 3 01-13-2023 Episodic Residual codes; unclassified (1 source) Family history of ischemic heart disease and other diseases of the circulatory system; Translations: [Family history of ischemic heart disease and other diseases of the circulatory system] Onset: 3 Episodic Suicide and intentional self-inflicted injury (4 sources) Poisoning by insulin and oral hypoglycemic [antidiabetic] drugs, intentional self-harm, initial encounter; Translations: [PSN INSULIN ORL HG RX SLF-HRM INIT] Onset: 1 Episodic Unclassified (1 source) CONTACT W/AND (SUSP) EXPOS COVID-19; Translations: [CONTACT W/AND (SUSP) EXPOS COVID-19] Onset: 1 Past or Other Problems Problem Classification Problem Date Documented Da te Episodic/Chronic Other lower respiratory disease (1 source) Hypoxemia; Translations: [Hypoxemia] Onset: 09-28-2022 Episodic Pneumonia (except that caused by tuberculosis or sexually transmitted disease) (8 sources) Community acquired pneumonia; Translations: [Unspecified bacterial pneumonia] Onset: 09-28-2022 09-28-2022 Episodic Urinary tract infections (1 source) Acute cystitis without hematuria; Translations: [Acute cystitis without hematuria] Onset: 09-28-2022 Episodic Results Test Name Value Interpretation Reference Range Facility Follow-Upon 03-23-2023 Follow-Up [id number] Jb Goodwin Y 1945 F Date Provider Department Center 03/23/2023 [facility]G [place] Fl Family History Problem Relation Age of Onset Diabetes Mother Hypertension Father Coronary artery disease Father Family Status - Relation Status Age at Mother Father Level of Service:94540 OR OFFICE/OUTPATIENT ESTABLISHED LOW [facility] 20-29 MIN Reason for Visit and Comments: Follow-up [059731] - shunt check s/p mri; Patient has been off balance. Normal [facility] CT CARDIAC W C [facility] MORP CARD ONLYon 01-18-2023 CT CARDIAC W [facility] MORP CARD ONLY EXAMINATION: CT HEART WITH CONTRAST MORPHOLOGY ONLY 01/13/2023 10:31 am TECHNIQUE: CT of the heart was performed with contrast for surgical planning. Gated images were acquired during the systolic and diastolic phases. Automated exposure control, iterative reconstruction, and/or weight based adjustment of the mA/kV was utilized to reduce the radiation dose to as low as reasonably achievable. COMPARISON: None. HISTORY: ORDERING SYSTEM PROVIDED HISTORY: Aortic valve stenosis, etiology of cardiac valve disease unspecified TECHNOLOGIST PROVIDED HISTORY: Reason for Exam: tavr workup FINDINGS: Cardiac: Cardiomegaly. No pericardial effusion. Diffuse aortic valve calcifications. No appreciable calcifications in the mitral valve. Severe triple-vessel coronary artery calcifications. Mediastinum: No lymphadenopathy. Small sliding hiatal hernia. No evidence for aortic aneurysm. Satisfactory enhancement of the visualized pulmonary arteries. Lungs/pleura: No significant lung nodule or mass. Minimal subsegmental atelectasis left lung base. Pleural effusion or pneumothorax. Soft Tissues/Bones: No acute abnormality of the bones. The superficial soft tissues show no significant abnormalities. IMPRESSION: 1. Cardiomegaly. 2. Diffuse aortic valve calcifications. Aortic valve measurements were analyzed and provided by [employer] and are reported separately to the cardiology department. 3. Severe triple-vessel coronary artery calcifications. 4. Small sliding hiatal hernia. Interpreted by: Brennan Parra MD Signed by: Brennan Parra MD 01/18/23 Final result Normal [facility] CTA CHEST ABDOMEN PELVIS W CONTRAST EXAMINATION: CTA OF THE CHEST, ABDOMEN AND PELVIS WITH CONTRAST 01/13/2023 10:31 am TECHNIQUE: CTA of the chest, abdomen and pelvis was performed after the administration of intravenous contrast. Multiplanar reformatted images are provided for review. MIP images are provided for review. Automated exposure control, iterative reconstruction, and/or weight based adjustment of the mA/kV was utilized to reduce the radiation dose to as low as reasonably achievable. COMPARISON: 09/28/2022 HISTORY: ORDERING SYSTEM PROVIDED HISTORY: Aortic valve stenosis, etiology of cardiac valve disease unspecified TECHNOLOGIST PROVIDED HISTORY: STAT Creatinine as needed:->No FINDINGS: CTA CHEST: Thoracic aorta: No evidence of thoracic aortic aneurysm or dissection. Ascending aorta measures up to 3.7 cm. Mild scattered calcific plaque. Coronary vascular calcifications and mild aortic valve calcification. No acute abnormality of the aorta. Additional reconstructions on a separate workstation for planned TAVR; minimal diameters of the subclavian arteries of 5.5 x 5.9 mm on the left and 4.6 x 7.2 mm on the right. Mediastinum: Scattered nonenlarged lymph nodes without bulky mediastinal lymphadenopathy. The heart and pericardium demonstrate no acute abnormality. Small hiatal hernia. Slightly heterogeneous thyroid gland with calcifications on the left. Lungs/Pleura: The lungs are without acute process. No focal consolidation or pulmonary edema. Extensive parenchymal infiltrates and pleural effusions seen on the prior study have essentially resolved. No evidence of pleural effusion or pneumothorax. Mild dependent atelectasis. There is minimal scattered subsegmental atelectasis/scarring in the lungs and subtle mosaic attenuation in the lungs. 5 mm subpleural nodular density in the right upper lobe (image 83) and a couple of scattered ill-defined 2-3 mm subpleural nodules. Soft Tissues/Bones: 15 mm soft tissue mass in the right breast (image 91) which mammography follow-up is recommended. Degenerative changes of the spine. Mild compression deformity of T1 and T2 with a 15 mm lucency in T7. Subtle patchy mixed lytic/sclerotic appearance of scattered vertebral bodies. There are couple of old rib fractures including the right 4th, 5th, and 9th rib and left 5th rib with a couple of ill-defined sclerotic foci. FRUIT HARVEST MACHINE OPERATOR shunt tubing in the right neck and anterior chest. CTA ABDOMEN: Abdominal aorta/Branches: No evidence of abdominal aortic aneurysm. Calcific plaque at the origin of the left renal artery results in at least mild stenosis. Celiac trunk, SMA, and right renal artery are patent. The MIREYA is patent. Organs: No acute abnormality of the liver, spleen, adrenal glands, pancreas, or gallbladder. Questionable 9 mm left adrenal gland nodule. Both kidneys enhance and excrete contrast. Tiny subcentimeter renal cysts. GI/Bowel: Evaluation of bowel is limited by lack of oral contrast. Moderate fecal stasis in the colon without convincing evidence of bowel obstruction. Peritoneum/Retroperiton eum: There is no bulky upper abdominal or retroperitoneal adenopathy. Very small fat containing umbilical hernia. FRUIT HARVEST MACHINE OPERATOR shunt tubing enters the abdomen in the midline with its tip in the right lower quadrant. Bones/Soft Tissues: Transitional anatomy in the spine with hypoplastic ribs at T12 and 4 lumbar type vertebral bodies. 15 mm lytic lesion in the lowest lumbar vertebral body. Degenerative changes of the spine with mild compression deformity of T12. Mixed lytic/sclerotic appearance of lumbar vertebral bodies. CTA PELVIS: Aorta/Iliacs: Mild calcific plaque of the common iliac arteries without significant stenosis. Bilateral external iliac arteries, internal iliac arteries, and common femoral arteries are without significant stenosis. Mild calcific plaque at the origin of the SFA bilaterally. Additional reconstructions on a separate workstation for planned TAVR. Minimal diameters of the left femoral artery 6.4 x 9.1 mm and right femoral artery 6.6 x 6 mm. Other: There appears to be a small amount of free fluid the pelvis which may be related to the FRUIT HARVEST MACHINE OPERATOR shunt catheter. There is a cystic left adnexal/deep pelvic mass measuring approximately 8.0 x 5.8 x 7.7 cm. This could be an ovarian cyst although mesenteric/peritoneal inclusion cyst could have this appearance. There is mild diffuse bladder wall thickening accentuated by underdistention; cystitis should be excluded clinically. Small fat containing left inguinal hernia. Soft tissue stranding right groin may be from recent catheterization site. Bones/Soft Tissues: Mild degenerative changes with no acute osseous abnormality. Subtle sclerosis of the iliac bones. Benign-appearing soft tissue calcifications in the left flank and gluteal regions. IMPRESSION: No acute abnormality identified on CTA of the chest, abdomen, and pelvis with measurements for planned (more content not included)... Normal [facility] No acute abnormality identified on CTA of the chest, abdomen, and pelvis with measurements for planned TAVR. Suspect a 15 mm right breast mass; mammography is recommended if not done recently. 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 Total spine MRI and/or bone scan is recommended for further evaluation. 8 cm cystic left adnexal/pelvic mass. Pelvic ultrasound and/or MRI recommended. 5 mm subpleural right lung nodule. FRUIT HARVEST MACHINE OPERATOR shunt noted. Small hiatal hernia. The findings were sent to the Radiology Results Communication [facility] 10 a.m. on 01/15/2023 to be communicated to a licensed caregiver. RECOMMENDATIONS: Managing Incidental Adnexal Cystic Mass by CT or MR Benign cyst: Late postmenopausal < or equal to 3 cm: no follow up >3 cm: US promptly Probably benign cyst : {benign appearing except demonstrates one or more of the following - (a) angulated margin, (b) not round/oval shape, (c) not well imaged due to artifact or technical parameters (ex. noncontrast CT) Late postmenopausal < or equal to 1 cm: no follow up >1 cm: US Reference: Lydia et al. Managing Incidental Findings on Abdominal CT: White Paper of the ACR Incidental Findings Committee. J Am Janel Radiol 2010;7:754-773 MHPN RIS CONSOLIDATED EXAMINATION: CTA OF THE CHEST, ABDOMEN AND PELVIS WITH CONTRAST 01/13/2023 10:31 am TECHNIQUE: CTA of the chest, abdomen and pelvis was performed after the administration of intravenous contrast. Multiplanar reformatted images are provided for review. MIP images are provided for review. Automated exposure control, iterative reconstruction, and/or weight based adjustment of the mA/kV was utilized to reduce the radiation dose to as low as reasonably achievable. COMPARISON: 09/28/2022 HISTORY: ORDERING SYSTEM PROVIDED HISTORY: Aortic valve stenosis, etiology of cardiac valve disease unspecified TECHNOLOGIST PROVIDED HISTORY: STAT Creatinine as needed:->No FINDINGS: CTA CHEST: Thoracic aorta: No evidence of thoracic aortic aneurysm or dissection. Ascending aorta measures up to 3.7 cm. Mild scattered calcific plaque. Coronary vascular calcifications and mild aortic valve calcification. No acute abnormality of the aorta. Additional reconstructions on a separate workstation for planned TAVR; minimal diameters of the subclavian arteries of 5.5 x 5.9 mm on the left and 4.6 x 7.2 mm on the right. Mediastinum: Scattered nonenlarged lymph nodes without bulky mediastinal lymphadenopathy. The heart and pericardium demonstrate no acute abnormality. Small hiatal hernia. Slightly heterogeneous thyroid gland with calcifications on the left. Lungs/Pleura: The lungs are without acute process. No focal consolidation or pulmonary edema. Extensive parenchymal infiltrates and pleural effusions seen on the prior study have essentially resolved. No evidence of pleural effusion or pneumothorax. Mild dependent atelectasis. There is minimal scattered subsegmental atelectasis/scarring in the lungs and subtle mosaic attenuation in the lungs. 5 mm subpleural nodular density in the right upper lobe (image 83) and a couple of scattered ill-defined 2-3 mm subpleural nodules. Soft Tissues/Bones: 15 mm soft tissue mass in the right breast (image 91) which mammography follow-up is recommended. Degenerative changes of the spine. Mild compression deformity of T1 and T2 with a 15 mm lucency in T7. Subtle patchy mixed lytic/sclerotic appearance of scattered vertebral bodies. There are couple of old rib fractures including the right 4th, 5th, and 9th rib and left 5th rib with a couple of ill-defined sclerotic foci. [employer] shunt tubing in the right neck and anterior chest. CTA ABDOMEN: Abdominal aorta/Branches: No evidence of abdominal aortic aneurysm. Calcific plaque at the origin of the left renal artery results in at least mild stenosis. Celiac trunk, SMA, and right renal artery are patent. The MIREYA is patent. Organs: No acute abnormality of the liver, spleen, adrenal glands, pancreas, or gallbladder. Questionable 9 mm left adrenal gland nodule. Both kidneys enhance and excrete contrast. Tiny subcentimeter renal cysts. GI/Bowel: Evaluation of bowel is limited by lack of oral contrast. Moderate fecal stasis in the colon without convincing evidence of bowel obstruction. Peritoneum/Retroperiton eum: There is no bulky upper abdominal or retroperitoneal adenopathy. Very small fat containing umbilical hernia. [employer]PER[employer] shunt tubing enters the abdomen in the midline with its tip in the right lower quadrant. Bones/Soft Tissues: Transitional anatomy in the spine with hypoplastic ribs at T12 and 4 lumbar type vertebral bodies. 15 mm lytic lesion in the lowest lumbar vertebral body. Degenerative changes of the spine with mild compression deformity of T12. Mixed lytic/sclerotic appearance of lumbar vertebral bodies. CTA PELVIS: Aorta/Iliacs: Mild calcific plaque of the common iliac arteries without significant stenosis. Bilateral external iliac arteries, internal iliac arteries, and common femoral arteries are without significant stenosis. Mild calcific plaque at the origin of the SFA bilaterally. Additional reconstructions on a separate workstation for planned TAVR. Minimal diameters of the left femoral artery 6.4 x 9.1 mm and right femoral artery 6.6 x 6 mm. Other: There appears to be a small amount of free fluid the pelvis which may be related to the [employer]ACHINE OPER[employer] shunt catheter. There is a cystic left adnexal/deep pelvic mass measuring approximately 8.0 x 5.8 x 7.7 cm. This could be an ovarian cyst although mesenteric/peritoneal inclusion cyst could have this appearance. There is mild diffuse bladder wall thickening accentuated by underdistention; cystitis should be excluded clinically. Small fat containing left inguinal hernia. Soft tissue stranding right groin may be from recent catheterization site. Bones/Soft Tissues: Mild degenerative changes with no acute osseous abnormality. Subtle sclerosis of the iliac bones. Benign-appearing soft tissue calcifications in the left flank and gluteal regions. [facility] RIS CONSOLIDATED Tato Syed MD - 01/15/2023 EXAMINATION: CTA OF THE CHEST, ABDOMEN AND PELVIS WITH CONTRAST 01/13/2023 10:31 am TECHNIQUE: CTA of the chest, abdomen and pelvis was performed after the administration of intravenous contrast. Multiplanar reformatted images are provided for review. MIP images are provided for review. Automated exposure control, iterative reconstruction, and/or weight based adjustment of the mA/kV was utilized to reduce the radiation dose to as low as reasonably achievable. COMPARISON: 09/28/2022 HISTORY: ORDERING SYSTEM PROVIDED HISTORY: Aortic valve stenosis, etiology of cardiac valve disease unspecified TECHNOLOGIST PROVIDED HISTORY: STAT Creatinine as needed:->No FINDINGS: CTA CHEST: Thoracic aorta: No evidence of thoracic aortic aneurysm or dissection. Ascending aorta measures up to 3.7 cm. Mild scattered calcific plaque. Coronary vascular calcifications and mild aortic valve calcification. No acute abnormality of the aorta. Additional reconstructions on a separate workstation for planned TAVR; minimal diameters of the subclavian arteries of 5.5 x 5.9 mm on the left and 4.6 x 7.2 mm on the right. Mediastinum: Scattered nonenlarged lymph nodes without bulky mediastinal lymphadenopathy. The heart and pericardium demonstrate no acute abnormality. Small hiatal hernia. Slightly heterogeneous thyroid gland with calcifications on the left. Lungs/Pleura: The lungs are without acute process. No focal consolidation or pulmonary edema. Extensive parenchymal infiltrates and pleural effusions seen on the prior study have essentially resolved. No evidence of pleural effusion or pneumothorax. Mild dependent atelectasis. There is minimal scattered subsegmental atelectasis/scarring in the lungs and subtle mosaic attenuation in the lungs. 5 mm subpleural nodular density in the right upper lobe (image 83) and a couple of scattered ill-defined 2-3 mm subpleural nodules. Soft Tissues/Bones: 15 mm soft tissue mass in the right breast (image 91) which mammography follow-up is recommended. Degenerative changes of the spine. Mild compression deformity of T1 and T2 with a 15 mm lucency in T7. Subtle patchy mixed lytic/sclerotic appearance of scattered vertebral bodies. There are couple of old rib fractures including the right 4th, 5th, and 9th rib and left 5th rib with a couple of ill-defined sclerotic foci. [employer] shunt tubing in the right neck and anterior chest. CTA ABDOMEN: Abdominal aorta/Branches: No evidence of abdominal aortic aneurysm. Calcific plaque at the origin of the left renal artery results in at least mild stenosis. Celiac trunk, SMA, and right renal artery are patent. The MIREYA is patent. Organs: No acute abnormality of the liver, spleen, adrenal glands, pancreas, or gallbladder. Questionable 9 mm left adrenal gland nodule. Both kidneys enhance and excrete contrast. Tiny subcentimeter renal cysts. GI/Bowel: Evaluation of bowel is limited by lack of oral contrast. Moderate fecal stasis in the colon without convincing evidence of bowel obstruction. Peritoneum/Retroperiton eum: There is no bulky upper abdominal or retroperitoneal adenopathy. Very small fat containing umbilical hernia. [employer]ACHINE [employer]PER[employer] shunt tubing enters the abdomen in the midline with its tip in the right lower quadrant. Bones/Soft Tissues: Transitional anatomy in the spine with hypoplastic ribs at T12 and 4 lumbar type vertebral bodies. 15 mm lytic lesion in the lowest lumbar vertebral body. Degenerative changes of the spine with mild compression deformity of T12. Mixed lytic/sclerotic appearance of lumbar vertebral bodies. CTA PELVIS: Aorta/Iliacs: Mild calcific plaque of the common iliac arteries without significant stenosis. Bilateral external iliac arteries, internal iliac arteries, and common femoral arteries are without significant stenosis. Mild calcific plaque at the origin of the SFA bilaterally. Additional reconstructions on a separate workstation for planned TAVR. Minimal diameters of the left femoral artery 6.4 x 9.1 mm and right femoral artery 6.6 x 6 mm. Other: There appears to be a small amount of free fluid the pelvis which may be related to the [employer] MACHINE OPERATOR shunt catheter. There is a cystic left adnexal/deep pelvic mass measuring approximately 8.0 x 5.8 x 7.7 cm. This could be an ovarian cyst although mesenteric/peritoneal inclusion cyst could have this appearance. There is mild diffuse bladder wall thickening accentuated by underdistention; cystitis should be excluded clinically. Small fat containing left inguinal hernia. Soft tissue stranding right groin may be from recent catheterization site. Bones/Soft Tissues: Mild degenerative changes with no acute osseous abnormality. Subtle sclerosis of the iliac bones. Benign-appearing soft tissue calcifications in the left flank and gluteal regions. (more content not included)... [employer] Work Phone: CTA CHEST ABDOMEN PELVIS W C ONTRASTOrdered By: Tato Syed on 01-15-2023 [employer] Work Phone: PULMONARY FUNCTIONon 023 [address] [id number] PULMONARY FUNCTION PATIENT NAME: CUCA GOODWIN : 1945 MED REC NO: [id number] ROOM: ACCOUNT NO: [id number] ADMIT DATE: 01/13/2023 PROVIDER: Whit Maloney DATE OF PROCEDURE: 01/13/2023 Spirometry does not show any obstructive ventilatory defect and has an FEV1 of 1.07 liters and FVC of 1.36 liters. The post-bronchodilator study shows improvement with an FEV1 of 1.24 liters and FVC of 1.59 liters. Lung volumes show a total lung capacity that is decreased at 68% predicted. Diffusion capacity is normal at 123% predicted. Airway resistance is decreased at 56% predicted. Specific conductance is increased at 184% predicted. Flow-volume loop is normal. 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 The patient's FEV1 is 1.24 liters and FVC of 1.59 liters. The patient has a bronchospastic component and it is possible, the patient may have bronchial asthma. Clinical correlation is recommended. WHIT MALONEY [id number] Doc#: [id number] CC: Normal [facility] Radiology Study observation (narrative) [facility] [employer] Work Phone: POC Glucose Fingerstickon Glucose [Mass/Vol] 104 mg/dL 65 - 105 mg/dL [facility] [employer] Basic Metabolic Panelon 11-16 Anion gap [Moles/Vol] 11 mmol/L 9 - 17 mmol/L [facility] [employer] Calcium [Mass/Vol] 9.0 mg/dL 8.6 - 10. 4 mg/dL [facility] [employer] Chloride [Moles/Vol] 105 mmol/L 98 - 107 mmol/L [facility] [employer] CO2 [Moles/Vol] 20 mmol/L 20 - 31 mmol/L [facility] [employer] Creatinine [Mass/Vol] 1.04 mg/dL High 0.50 - 0.90 mg/dL [facility] [employer] GFR/1.73 sq M.predicted MDRD (S/P/Bld) [Vol rate/Area] 56 mL/min/{1.73_m2} Low - PINF [facility] Comment on above: These results are not intended for use in patients <18 years of age. eGFR results are calculated without a race factor using the 2020 CKD-EPI equation. Careful clinical correlation is recommended, particularly when comparing to results calculated using previous equations. The CKD-EPI equation is less accurate in patients with extremes of muscle mass, extra-renal metabolism of creatine, excessive creatine ingestion, or following therapy that affects renal tubular secretion. Glucose [Mass/Vol] 131 mg/dL High 70 - 99 mg/dL [facility] Interpretation and review of laboratory results Abnormal [facility] Potassium [Moles/Vol] 4.3 mmol/L 3.7 - 5.3 mmol/L [facility] Sodium [Moles/Vol] 136 mmol/L 135 - 144 mmol/L [facility] Urea nitrogen (BldV) [Mass/Vol] 17 mg/dL 8 - 23 mg/dL [facility] Basic Metabolic Profon 12-10 Anion gap [Moles/Vol] 11 mmol/L Normal 9-17 [facility] Comment on above: Performed By: #### H H, BMPX #### [facility] [address] [place] [address] Head Custodian: Luis Solis MD Calcium [Mass/Vol] 9.0 mg/dL Normal 8.6-10.4 [facility] Comment on above: Performed By: #### H H, BMPX #### [facility] [address] [place], [place] [id number] Head Custodian: Luis Solis MD Chloride [Moles/Vol] 105 mmol/L Normal 98-107 [facility] Comment on above: Performed By: #### H H, BMPX #### [facility] [place], [place] [id number] Head Custodian: Luis Solis MD CO2 [Moles/Vol] 20 mmol/L Normal 20-31 [facility] Comment on above: Performed By: #### H H, BMPX #### [facility] [employer] [address] [place] [address] Head Custodian: Luis Solis MD Creatinine [Mass/Vol] 1.04 mg/dL High 0.50-0.90 [facility] Comment on above: Performed By: #### H H, BMPX #### [facility] [employer] [address] [place] [address] Head Custodian: Luis Solis MD GFR/1.73 sq M.predicted among non-blacks MDRD (S/P/Bld) [Vol rate/Area] 56 mL/min/{1.73_m2} Low >60 [facility] Comment on above: Result Comment: These results are not intended for use in patients <18 years of age. eGFR results are calculated without a race factor using the 2020 CKD-EPI equation. Careful clinical correlation is recommended, particularly when comparing to results calculated using previous equations. The CKD-EPI equation is less accurate in patients with extremes of muscle mass, extra-renal metabolism of creatine, excessive creatine ingestion, or following therapy that affects renal tubular secretion. Performed By: #### H H, BMPX #### [facility] [employer] [address] [place] [address] Head Custodian: Luis Solis MD Glucose [Mass/Vol] 131 mg/dL High 70-99 [facility] Comment on above: Performed By: #### H H, BMPX #### [facility] [address] [place] [address] Head Custodian: Luis Solis MD Potassium [Moles/Vol] 4.3 mmol/L Normal 3.7-5.3 [facility] Comment on above: Performed By: #### H H, BMPX #### [facility] [employer] [address] [place] [address] Head Custodian: Luis Solis MD Sodium [Moles/Vol] 136 mmol/L Normal 135-144 [facility] Comment on above: Performed By: #### H H, BMPX #### [employer] [address] [place] [address] [phone] Head Custodian: Luis Solis MD Urea nitrogen [Mass/Vol] 17 mg/dL Normal 8-23 [facility] Comment on above: Performed By: #### H H, BMPX #### [employer] [address] [place] [address] [phone] Head Custodian: Luis Solis MD Hemoglobin and Hematocriton 12-10-2022 Hematocrit (Bld) [Volume fraction] 25.5 % Low 36.3 - 47.1 % [facility] Hemoglobin (Bld) [Mass/Vol] 7.9 g/dL Low 11.9 - 15.1 g/dL [facility] Interpretation and review of laboratory results Abnormal [facility] Hgb/Hcton 12-10-2022 Hematocrit (Bld) [Volume fraction] 25.5 % Low 36.3-47.1 [facility] Comment on above: Performed By: #### H H, BMPX #### [employer] [address] [place] [address] [phone] Head Custodian: Luis Solis MD Hemoglobin (Bld) [Mass/Vol] 7.9 g/dL Low 11.9-15.1 [facility] Comment on above: Performed By: #### H H, BMPX #### [employer] [address] [place] [address] [phone] Head Custodian: Luis Solis MD Laboratory - Blood bankon Blood product type Nom (BPU) Leukocyte Reduced Red Cell [facility] No Panel Informationon 12-10 Blood Bank ISBT Product Blood Type 9500 [facility] Blood Bank Unit Type and Rh Negative [facility] Crossmatch Result COMPATIBLE [facility] Dispense Status TRANSFUSED [facility] Transfusion Status OK TO TRANSFUSE B ON [facility] Unit Divison 0 [facility] POC Glucose Fingerstickon Glucose [Mass/Vol] 105 mg/dL 65 - 105 mg/dL [facility] Glucose [Mass/Vol] 119 mg/dL High 65 - 105 mg/dL [facility] Interpretation and review of laboratory results Abnormal [facility] Glucose [Mass/Vol] 159 mg/dL High 65 - 105 mg/dL [facility] Interpretation and review of laboratory results Abnormal [facility] Glucose [Mass/Vol] 70 mg/dL 65 - 105 mg/dL [facility] Glucose [Mass/Vol] 41 mg/dL Low 65 - 105 mg/dL [facility] Comment on above: Critical Noted Interpretation and review of laboratory results Abnormal [facility] TYPE AND SCREENon 12-10-2022 ABO/Rh Negative [facility] Arm Band Number [id number] [facility] Blood Bank Blood Product Expiration Date [id number] [facility] Blood Bank Blood Product Expiration Date [id number] [facility] Blood Bank Blood Product Expiration Date [id number] [facility] Blood product unit ID (Dose) [#] [id number] [facility] Blood product unit ID (Dose) [#] [id number] [facility] Blood product unit ID (Dose) [#] [id number] [facility] Expiration Date 12/10/2022,2359 [facility] Product Code Blood Bank [id number] [facility] Product Code Blood Bank [id number] [facility] Product Code Blood Bank [id number] [facility] Unit Issue Date/Time [id number] [facility] Unit Issue Date/Time [id number] [facility] Unit Issue Date/Time [id number] [facility] Basic Metab w/rfx MGon 12-09 Anion gap [Moles/Vol] 10 mmol/L Normal 9-17 [facility] Comment on above: Performed By: #### H H, BMPX #### [facility] [address] [place] [address] Head Custodian: Luis Solis MD Calcium [Mass/Vol] 8.6 mg/dL Normal 8.6-10.4 [facility] Comment on above: Performed By: #### H H, BMPX #### [facility] [address] [place] [address] Head Custodian: Luis Solis MD Chloride [Moles/Vol] 106 mmol/L Normal 98-107 [facility] Comment on above: Performed By: #### H H, BMPX #### [facility] [employer] [address] [place] [address] Head Custodian: Luis Solis MD CO2 [Moles/Vol] 21 mmol/L Normal 20-31 [facility] Comment on above: Performed By: #### H H, BMPX #### [facility] [employer] [address] [place] [address] Head Custodian: Luis Solis MD Creatinine [Mass/Vol] 1.33 mg/dL High 0.50-0.90 [facility] Comment on above: Performed By: #### H H, BMPX #### [facility] [employer] [address] [place] [address] Head Custodian: Luis Solis MD GFR/1.73 sq M.predicted among non-blacks MDRD (S/P/Bld) [Vol rate/Area] 41 mL/min/{1.73_m2} Low >60 [facility] Comment on above: Result Comment: Effective Aug 17, 2022 These results are not intended for use in patients <18 years of age. eGFR results are calculated without a race factor using the 2020 CKD-EPI equation. Careful clinical correlation is recommended, particularly when comparing to results calculated using previous equations. The CKD-EPI equation is less accurate in patients with extremes of muscle mass, extra-renal metabolism of creatine, excessive creatine ingestion, or following therapy that affects renal tubular secretion. Performed By: #### H H, BMPX #### [facility] [address] [place] [address] Head Custodian: Luis Solis MD Glucose [Mass/Vol] 102 mg/dL High 70-99 [facility] Comment on above: Performed By: #### H H, BMPX #### [facility] [address] [place] [address] Head Custodian: Luis Solis MD Potassium [Moles/Vol] 4.1 mmol/L Normal 3.7-5.3 [facility] Comment on above: Performed By: #### H H, BMPX #### [facility] [address] [place] [address] Head Custodian: Luis Solis MD Sodium [Moles/Vol] 137 mmol/L Normal 135-144 [facility] Comment on above: Performed By: #### H H, BMPX #### [facility] [address] [place] [address] Head Custodian: Luis Solis MD Urea nitrogen [Mass/Vol] 19 mg/dL Normal 8-23 [facility] Comment on above: Performed By: #### H H, BMPX #### [facility] [address] [place] [address] Head Custodian: Luis Solis MD Basic Metabolic Panel w/ Ref pierre to MGon 12-09-2022 Anion gap [Moles/Vol] 10 mmol/L 9 - 17 mmol/L [facility] Calcium [Mass/Vol] 8.6 mg/dL 8.6 - 10. 4 mg/dL [facility] Chloride [Moles/Vol] 106 mmol/L 98 - 107 mmol/L [facility] CO2 [Moles/Vol] 21 mmol/L 20 - 31 mmol/L [facility] Creatinine [Mass/Vol] 1.33 mg/dL High 0.50 - 0.90 mg/dL [facility] GFR/1.73 sq M.predicted MDRD (S/P/Bld) [Vol rate/Area] 41 mL/min/{1.73_m2} Low - PINF [facility] Comment on above: Effective Aug 17, 2022 These results are not intended for use in patients <18 years of age. eGFR results are calculated without a race factor using the 2020 CKD-EPI equation. Careful clinical correlation is recommended, particularly when comparing to results calculated using previous equations. The CKD-EPI equation is less accurate in patients with extremes of muscle mass, extra-renal metabolism of creatine, excessive creatine ingestion, or following therapy that affects renal tubular secretion. Glucose [Mass/Vol] 102 mg/dL High 70 - 99 mg/dL [facility] Interpretation and review of laboratory results Abnormal [facility] Potassium [Moles/Vol] 4.1 mmol/L 3.7 - 5.3 mmol/L [facility] Sodium [Moles/Vol] 137 mmol/L 135 - 144 mmol/L [facility] Urea nitrogen (BldV) [Mass/Vol] 19 mg/dL 8 - 23 mg/dL [facility] Hemoglobin and Hematocriton 12-09-2022 Hematocrit (Bld) [Volume fraction] 25.6 % Low 36.3 - 47.1 % [facility] Hemoglobin (Bld) [Mass/Vol] 8.0 g/dL Low 11.9 - 15.1 g/dL [facility] Interpretation and review of laboratory results Abnormal [facility] Hematocrit (Bld) [Volume fraction] 23.5 % Low 36.3 - 47.1 % [facility] Hemoglobin (Bld) [Mass/Vol] 7.1 g/dL Low 11.9 - 15.1 g/dL [facility] Interpretation and review of laboratory results Abnormal [facility] Hgb/Hcton 12-09-2022 Hematocrit (Bld) [Volume fraction] 25.6 % Low 36.3-47.1 [facility] Comment on above: Performed By: #### H H, BMPX #### [facility] [address] [place], [place] [phone] Head Custodian: Luis Solis MD Hemoglobin (Bld) [Mass/Vol] 8.0 g/dL Low 11.9-15.1 [facility] Comment on above: Performed By: #### H H, BMPX #### [facility] [address] [place], [place] 1937[address] Head Custodian: Luis Solis MD Hematocrit (Bld) [Volume fraction] 23.5 % Low 36.3-47.1 [facility] Comment on above: Performed By: #### H H, BMPX #### [facility] [address] [place], [place] [phone] Head Custodian: Luis Solis MD Hemoglobin (Bld) [Mass/Vol] 7.1 g/dL Low 11.9-15.1 [facility] Comment on above: Performed By: #### H H, BMPX #### [facility] [address] [place], [place] [phone] Head Custodian: Luis Solis MD POC Glucose Fingerstickon Glucose [Mass/Vol] 143 mg/dL High 65 - 105 mg/dL [facility] Interpretation and review of laboratory results Abnormal [facility] Glucose [Mass/Vol] 96 mg/dL 65 - 105 mg/dL [facility] Glucose [Mass/Vol] 114 mg/dL High 65 - 105 mg/dL [facility] Interpretation and review of laboratory results Abnormal [facility] Glucose [Mass/Vol] 111 mg/dL High 65 - 105 mg/dL [facility] Interpretation and review of laboratory results Abnormal [facility] Type + Screenon 12-09-2022 Type + Screen Sample Expiration 12/10/2022,2359 Arm Band Number [id number] ABO/Rh(D) O NEGATIVE Antibody Screen NEGATIVE Unit Number [id number] Blood Component Type Leukocyte Reduced Red Cell Unit Division 00 Status of Unit TRANSFUSED Transfusion Status OK TO TRANSFUSE Crossmatch Result COMPATIBLE Unit Number [id number] Blood Component Type Leukocyte Reduced Red Cell Unit Division 00 Status of Unit TRANSFUSED Transfusion Status OK TO TRANSFUSE Crossmatch Result COMPATIBLE Unit Number [id number] Blood Component Type Leukocyte Reduced Red Cell Unit Division 00 Status of Unit TRANSFUSED Transfusion Status OK TO TRANSFUSE Crossmatch Result COMPATIBLE Normal [facility] Comment on above: Performed By: #### R EJEC, BMPX #### [facility] [address] [place] [address] Head Custodian: Luis Solis MD Basic Metab w/rfx MGon 12-08 Anion gap [Moles/Vol] 9 mmol/L Normal 9-17 [facility] Comment on above: Performed By: #### R CHITO, BMPX #### [facility] [address] [place] [address] Head Custodian: Luis Solis MD Calcium [Mass/Vol] 8.6 mg/dL Normal 8.6-10.4 [facility] Comment on above: Performed By: #### R EJEC, BMPX #### [employer] [address] [place] [address] Head Custodian: Luis Solis MD Chloride [Moles/Vol] 106 mmol/L Normal 98-107 [facility] Comment on above: Performed By: #### R EJEC, BMPX #### [employer] [address] [place] [address] Head Custodian: Luis Solis MD CO2 [Moles/Vol] 24 mmol/L Normal 20-31 [facility] Comment on above: Performed By: #### R EJEC, BMPX #### [employer] [address] [place] [address] Head Custodian: Luis Solis MD Creatinine [Mass/Vol] 1.33 mg/dL High 0.50-0.90 [facility] Comment on above: Performed By: #### R CHITO BMPX #### [address] [address] Head Custodian: Luis Solis MD GFR/1.73 sq M.predicted among non-blacks MDRD (S/P/Bld) [Vol rate/Area] 41 mL/min/{1.73_m2} Low >60 [facility] Comment on above: Result Comment: Effective Aug 17, 2022 These results are not intended for use in patients <18 years of age. eGFR results are calculated without a race factor using the 2020 CKD-EPI equation. Careful clinical correlation is recommended, particularly when comparing to results calculated using previous equations. The CKD-EPI equation is less accurate in patients with extremes of muscle mass, extra-renal metabolism of creatine, excessive creatine ingestion, or following therapy that affects renal tubular secretion. Performed By: #### Jeff DALE BMPX #### [facility] [employer] [address] [place] [address] Head Custodian: Luis Solis MD Glucose [Mass/Vol] 160 mg/dL High 70-99 [facility] Comment on above: Performed By: #### Jeff DALE BMPX #### [facility] [employer] [address] [place] [address] Head Custodian: Luis Solis MD Potassium [Moles/Vol] 4.4 mmol/L Normal 3.7-5.3 [facility] Comment on above: Performed By: #### Jeff DALE BMPX #### [facility] [employer] [address] [place] [address] Head Custodian: Luis Solis MD Sodium [Moles/Vol] 139 mmol/L Normal 135-144 [facility] Comment on above: Performed By: #### R CHITO, BMPX #### [facility] [employer] [address] [place] [address] Head Custodian: Luis Solis MD Urea nitrogen [Mass/Vol] 21 mg/dL Normal 8- [facility] Comment on above: Performed By: #### R EJJESE, BMPX #### [id number] [place] [address] Head Custodian: Luis Solis MD Basic Metabolic Panelon 11-16 Anion gap [Moles/Vol] 7 mmol/L Low 9 - 17 mmol/L [facility] Calcium [Mass/Vol] 8.5 mg/dL Low 8.6 - 10. 4 mg/dL [facility] Chloride [Moles/Vol] 110 mmol/L High 98 - 107 mmol/L [facility] CO2 [Moles/Vol] 25 mmol/L 20 - 31 mmol/L [facility] Creatinine [Mass/Vol] 1.43 mg/dL High 0.50 - 0.90 mg/dL [facility] GFR/1.73 sq M.predicted MDRD (S/P/Bld) [Vol rate/Area] 38 mL/min/{1.73_m2} Low - PINF [facility] Comment on above: Effective Aug 17, 2022 These results are not intended for use in patients <18 years of age. eGFR results are calculated without a race factor using the 2020 CKD-EPI equation. Careful clinical correlation is recommended, particularly when comparing to results calculated using previous equations. The CKD-EPI equation is less accurate in patients with extremes of muscle mass, extra-renal metabolism of creatine, excessive creatine ingestion, or following therapy that affects renal tubular secretion. Glucose [Mass/Vol] 124 mg/dL High 70 - 99 mg/dL [facility] Interpretation and review of laboratory results Abnormal [facility] Potassium [Moles/Vol] 4.7 mmol/L 3.7 - 5.3 mmol/L [facility] Sodium [Moles/Vol] 142 mmol/L 135 - 144 mmol/L [facility] Urea nitrogen (BldV) [Mass/Vol] 23 mg/dL 8 - 23 mg/dL [facility] [employer] Basic Metabolic Panel w/ Ref pierre to MGon 12-08-2022 Anion gap [Moles/Vol] 9 mmol/L 9 - 17 mmol/L [facility] Calcium [Mass/Vol] 8.6 mg/dL 8.6 - 10. 4 mg/dL [facility] Chloride [Moles/Vol] 106 mmol/L 98 - 107 mmol/L [facility] CO2 [Moles/Vol] 24 mmol/L 20 - 31 mmol/L [facility] Creatinine [Mass/Vol] 1.33 mg/dL High 0.50 - 0.90 mg/dL [facility] GFR/1.73 sq M.predicted MDRD (S/P/Bld) [Vol rate/Area] 41 mL/min/{1.73_m2} Low - PINF [facility] Comment on above: Effective Aug 17, 2022 These results are not intended for use in patients <18 years of age. eGFR results are calculated without a race factor using the 2020 CKD-EPI equation. Careful clinical correlation is recommended, particularly when comparing to results calculated using previous equations. The CKD-EPI equation is less accurate in patients with extremes of muscle mass, extra-renal metabolism of creatine, excessive creatine ingestion, or following therapy that affects renal tubular secretion. Glucose [Mass/Vol] 160 mg/dL High 70 - 99 mg/dL [facility] Interpretation and review of laboratory results Abnormal [facility] Potassium [Moles/Vol] 4.4 mmol/L 3.7 - 5.3 mmol/L [facility] Sodium [Moles/Vol] 139 mmol/L 135 - 144 mmol/L [facility] Urea nitrogen (BldV) [Mass/Vol] 21 mg/dL 8 - 23 mg/dL [facility] Basic Metabolic Profon 12-08 Anion gap [Moles/Vol] 7 mmol/L Low 9-17 [facility] Comment on above: Performed By: #### B MP, CBC #### [facility] [employer] [facility] [place] [address] Head Custodian: Luis Solis MD Calcium [Mass/Vol] 8.5 mg/dL Low 8.6-10.4 [facility] Comment on above: Performed By: #### B MP, CBC #### [facility] [address] [place] [address] Head Custodian: Luis Solis MD Chloride [Moles/Vol] 110 mmol/L High 98-107 [facility] Comment on above: Performed By: #### B MP, CBC #### [facility] [address] [place] [address] Head Custodian: Luis Solis MD CO2 [Moles/Vol] 25 mmol/L Normal 20-31 [facility] Comment on above: Performed By: #### B MP, CBC #### [facility] [address] [place] [address] Head Custodian: Luis Solis MD Creatinine [Mass/Vol] 1.43 mg/dL High 0.50-0.90 [facility] Comment on above: Performed By: #### B MP, CBC #### [address] [address] Head Custodian: Luis Solis MD GFR/1.73 sq M.predicted among non-blacks MDRD (S/P/Bld) [Vol rate/Area] 38 mL/min/{1.73_m2} Low >60 [facility] Comment on above: Result Comment: Effective Aug 17, 2022 These results are not intended for use in patients <18 years of age. eGFR results are calculated without a race factor using the 2020 CKD-EPI equation. Careful clinical correlation is recommended, particularly when comparing to results calculated using previous equations. The CKD-EPI equation is less accurate in patients with extremes of muscle mass, extra-renal metabolism of creatine, excessive creatine ingestion, or following therapy that affects renal tubular secretion. Performed By: #### B MP, CBC #### [address] [address] Head Custodian: Luis Solis MD Glucose [Mass/Vol] 124 mg/dL High 70-99 [facility] Comment on above: Performed By: #### B MP, CBC #### [facility] [address] [place] [address] Head Custodian: Luis Solis MD Potassium [Moles/Vol] 4.7 mmol/L Normal 3.7-5.3 [facility] Comment on above: Performed By: #### B MP, CBC #### [facility] [employer] [address] [place] [address] Head Custodian: Luis Solis MD Sodium [Moles/Vol] 142 mmol/L Normal 135-144 [facility] Comment on above: Performed By: #### B MP, CBC #### [facility] [employer] [address] [place] [address] Head Custodian: Luis Solis MD Urea nitrogen [Mass/Vol] 23 mg/dL Normal 8-23 [facility] Comment on above: Performed By: #### B MP, CBC #### [facility] [employer] [address] [place] [address] Head Custodian: Luis Solis MD CBCon 12-08-2022 Erythrocyte distribution width (RBC) [Ratio] 17.8 % High 11.8-14.4 [facility] Comment on above: Performed By: #### B MP, CBC #### [facility] [employer] [address] [place] [address] Head Custodian: Luis Solis MD Hematocrit (Bld) [Volume fraction] 22.0 % Low 36.3-47.1 [facility] Comment on above: Performed By: #### B MP, CBC #### [facility] [employer] [address] [place] [address] Head Custodian: Luis Solis MD Hemoglobin (Bld) [Mass/Vol] 6.6 g/dL Critically low 11.9-15.1 [facility] Comment on above: Performed By: #### B MP, CBC #### [address] [address] Head Custodian: Luis Solis MD MCH (RBC) [Entitic mass] 27.5 pg Normal 25.2-33.5 [facility] Comment on above: Performed By: #### B MP, CBC #### [address] [address] Head Custodian: Luis Solis MD MCHC (RBC) [Mass/Vol] 30.0 g/dL Normal 28.4-34.8 [facility] Comment on above: Performed By: #### B MP, CBC #### [address] [address] Head Custodian: Luis Solis MD MCV (RBC) [Entitic vol] 91.7 fL Normal 82.6-102.9 [facility] Comment on above: Performed By: #### B MP, CBC #### [address] [address] Head Custodian: Luis Solis MD NRBC Automated 0.0 per 100 WBC Normal 0.0 [facility] Comment on above: Performed By: #### B MP, CBC #### [address] [address] Head Custodian: Luis Solis MD Platelet mean volume (Bld) [Entitic vol] 10.3 fL Normal 8.1-13.5 [facility] Comment on above: Performed By: #### B MP, CBC #### [address] [address] Head Custodian: Luis Solis MD Platelets (Bld) [#/Vol] 250 10*3/uL Normal 138-453 [facility] Comment on above: Performed By: #### B MP, CBC #### [address] [address] Head Custodian: Luis Solis MD RBC (Bld) [#/Vol] 2.40 10*6/uL Low 3.95-5.11 [facility] Comment on above: Performed By: #### B MP, CBC #### [facility] [address] [place] [address] Head Custodian: Luis Solis MD WBC (Bld) [#/Vol] 9.2 10*3/uL Normal 3.5-11.3 [facility] Comment on above: Performed By: #### B MP, CBC #### [facility] [address] [place] [address] Head Custodian: Luis Solis MD Hematocrit (Bld) [Volume fraction] 22.0 % Low 36.3 - 47.1 % [facility] Hemoglobin (Bld) [Mass/Vol] 6.6 g/dL Critically low 11.9 - 15.1 g/dL [facility] Interpretation and review of laboratory results Abnormal [facility] MCH (RBC) [Entitic mass] 27.5 pg 25.2 - 33.5 pg [facility] MCHC (RBC) [Mass/Vol] 30.0 g/dL 28.4 - 34.8 g/dL [facility] MCV (RBC) [Entitic vol] 91.7 fL 82.6 - 102.9 fL [facility] NRBC Automated 0.0 0.0 per 100 WBC [facility] Platelet distribution width (Bld) [Ratio] 17.8 % High 11.8 - 14.4 % [facility] Platelet mean volume (Bld) [Entitic vol] 10.3 fL 8.1 - 13.5 fL [facility] Platelets (Bld) [#/Vol] 250 10*3/uL [facility] RBC (Bld) [#/Vol] 2.40 10*6/uL Low 3.95 - 5.1 1 m/uL [facility] WBC (Bld) [#/Vol] 9.2 10*3/uL [facility] Hemoglobin and Hematocriton 12-08-2022 Hematocrit (Bld) [Volume fraction] 24.4 % Low 36.3 - 47.1 % [facility] Hemoglobin (Bld) [Mass/Vol] 7.4 g/dL Low 11.9 - 15.1 g/dL [facility] Interpretation and review of laboratory results Abnormal [facility] Hematocrit (Bld) [Volume fraction] 24.6 % Low 36.3 - 47.1 % [facility] Hemoglobin (Bld) [Mass/Vol] 7.7 g/dL Low 11.9 - 15.1 g/dL [facility] Interpretation and review of laboratory results Abnormal [facility] Hematocrit (Bld) [Volume fraction] 22.9 % Low 36.3 - 47.1 % [facility] Hemoglobin (Bld) [Mass/Vol] 7.6 g/dL Low 11.9 - 15.1 g/dL [facility] Interpretation and review of laboratory results Abnormal [facility] Hematocrit (Bld) [Volume fraction] 21.9 % Low 36.3 - 47.1 % [facility] Hemoglobin (Bld) [Mass/Vol] 6.5 g/dL Critically low 11.9 - 15.1 g/dL [facility] Interpretation and review of laboratory results Abnormal [facility] Hgb/Hcton 12-08-2022 Hematocrit (Bld) [Volume fraction] 24.4 % Low 36.3-47.1 [facility] Comment on above: Performed By: #### R CHITO, BMPX #### [employer] [address] [place] [address] Head Custodian: Luis Solis MD Hemoglobin (Bld) [Mass/Vol] 7.4 g/dL Low 11.9-15.1 [facility] Comment on above: Performed By: #### R ZAINABEC, BMPX #### [employer] [address] [place], [place] [id number] Head Custodian: Luis Solis MD Hematocrit (Bld) [Volume fraction] 24.6 % Low 36.3-47.1 [facility] Comment on above: Performed By: #### R EJEC, BMPX #### [facility] [employer] [address] [place] [address] Head Custodian: Luis Solis MD Hemoglobin (Bld) [Mass/Vol] 7.7 g/dL Low 11.9-15.1 [facility] Comment on above: Performed By: #### R EJEC, BMPX #### [facility] [employer] [address] [place] [address] Head Custodian: Luis Solis MD Hematocrit (Bld) [Volume fraction] 22.9 % Low 36.3-47.1 [facility] Comment on above: Performed By: #### R CHITO, BMPX #### [facility] [address] [place] [address] Head Custodian: Luis Solis MD Hemoglobin (Bld) [Mass/Vol] 7.6 g/dL Low 11.9-15.1 [facility] Comment on above: Performed By: #### R CHITO, BMPX #### [facility] [address] [place] [address] Head Custodian: Luis Solis MD Hematocrit (Bld) [Volume fraction] 21.9 % Low 36.3-47.1 [facility] Comment on above: Performed By: #### H H #### [facility] [employer] [address] [place] [address] Head Custodian: Luis Solis MD Hemoglobin (Bld) [Mass/Vol] 6.5 g/dL Critically low 11.9-15.1 [facility] Comment on above: Performed By: #### H H #### [facility] [address] [place] [address] Head Custodian: Luis Solis MD Hematocrit (Bld) [Volume fraction] 23.7 % Low 36.3-47.1 [facility] Comment on above: Performed By: #### R CHITO BMPX #### [employer] [address] [place], [place] [id number] Head Custodian: Luis Solis MD Hemoglobin (Bld) [Mass/Vol] 7.6 g/dL Low 11.9-15.1 [facility] Comment on above: Performed By: #### R CHITO, BMPX #### [employer] [address] [place], [place] [id number] Head Custodian: Luis Solis MD POC Glucose Fingerstickon Glucose [Mass/Vol] 129 mg/dL High 65 - 105 mg/dL [facility] Interpretation and review of laboratory results Abnormal [facility] Glucose [Mass/Vol] 138 mg/dL High 65 - 105 mg/dL [facility] Interpretation and review of laboratory results Abnormal [facility] Glucose [Mass/Vol] 164 mg/dL High 65 - 105 mg/dL [facility] Interpretation and review of laboratory results Abnormal [facility] SPECIMEN REJECTIONon 023 Ordered Test HH [facility] Reason for Rejection Unable to perform testing: Specimen clotted. [facility] Specimen source Nom (Unsp spec) .BLOOD [facility] Specimen Rejectionon 023 Reason for rejection Unable to perform testing: Specimen clotted. Normal [facility] Comment on above: Performed By: #### R CHITO, BMPX #### [facility] [address] [place], [place] [id number] Head Custodian: Luis Solis MD Source of sample .BLOOD Normal [facility] Comment on above: Performed By: #### R CHITO, BMPX #### [employer] [facility] [place] [address] Head Custodian: Luis Solis MD Test ordered HH Normal [facility] Comment on above: Performed By: #### R EJJESE, BMPX #### [facility] [address] [place] [address] Head Custodian: Luis Solis MD Activated clotting timeon Activated Clotting Time 262 High [facility] Interpretation and review of laboratory results Abnormal [facility] CHLORIDE (POC)on 12-07-2022 Chloride [Moles/Vol] 107 mmol/L 98 - 107 mmol/L [facility] Catheterization and angiogra phy procedure details panelon 12-07-2022 [facility] [employer] Work Phone: Creatinine W/GFR Point of Ca reon 12-07-2022 Creatinine [Mass/Vol] 1.35 mg/dL High 0.51 - 1.19 mg/dL [facility] [employer] eGFR, POC 41 mL/min/1.73m 2 [facility] [employer] Comment on above: Effective Aug 17, 2022 These results are not intended for use in patients <18 years of age. eGFR results are calculated without a race factor using the 2020 CKD-EPI equation. Careful clinical correlation is recommended, particularly when comparing to results calculated using previous equations. The CKD-EPI equation is less accurate in patients with extremes of muscle mass, extra-renal metabolism of creatine, excessive creatine ingestion, or following therapy that affects renal tubular secretion. Hemoglobin and Hematocriton 12-07-2022 Hematocrit (Bld) [Volume fraction] 23.7 % Low 36.3 - 47.1 % [facility] [employer] [facility] Hemoglobin (Bld) [Mass/Vol] 7.6 g/dL Low 11.9 - 15.1 g/dL [facility] Interpretation and review of laboratory results Abnormal [facility] Hematocrit (Bld) [Volume fraction] 24.9 % Low 36.3 - 47.1 % [facility] Hemoglobin (Bld) [Mass/Vol] 7.2 g/dL Low 11.9 - 15.1 g/dL [facility] Interpretation and review of laboratory results Abnormal [facility] Hemoglobin and hematocrit, b loodon 12-07-2022 Hematocrit (Bld) [Volume fraction] 20 % Low 36 - 46 % [facility] Hemoglobin (Bld) [Mass/Vol] 6.9 g/dL Critically low 12.0 - 16.0 g/dL [facility] Interpretation and review of laboratory results Abnormal [facility] Hematocrit (Bld) [Volume fraction] 30 % Low 36 - 46 % [facility] Hemoglobin (Bld) [Mass/Vol] 10.1 g/dL Low 12.0 - 16.0 g/dL [facility] Hgb/Hcton 12-07-2022 Hematocrit (Bld) [Volume fraction] 24.9 % Low 36.3-47.1 [facility] Comment on above: Performed By: #### Jeff DALE, BMPX #### [employer] [address] [place], [place] [id number] Head Custodian: Luis Solis MD Hemoglobin (Bld) [Mass/Vol] 7.2 g/dL Low 11.9-15.1 [facility] Comment on above: Performed By: #### R CHITO, BMPX #### [employer] [address] [place] [address] Head Custodian: Luis Solis MD No Panel Informationon 12-07 Interpretation and review of laboratory results Abnormal [facility] POC Glucose Fingerstickon Glucose [Mass/Vol] 197 mg/dL High 65 - 105 mg/dL [facility] Interpretation and review of laboratory results Abnormal [facility] Glucose [Mass/Vol] 101 mg/dL 65 - 105 mg/dL [facility] POCT Glucoseon 12-07-2022 Glucose [Mass/Vol] 83 mg/dL 74 - 100 mg/dL [facility] POCT urea (BUN)on 12-07-2022 Urea nitrogen [Mass/Vol] 25 mg/dL 8 - 26 mg/dL [facility] POTASSIUM (POC)on 12-07-2022 Potassium [Moles/Vol] 4.2 mmol/L 3.5 - 4.5 mmol/L [facility] SODIUM (POC)on 12-07-2022 Sodium [Moles/Vol] 142 mmol/L 138 - 146 mmol/L [facility] VL DUP LOWER EXTREMITY ARTER IES RIGHTon 12-07-2022 Darnell Monique MD - 12/07/2022 [facility] Vascular Lower Extremities Arterial Duplex Procedure Patient Name CHRISTA Date of Study 12/07/2022 [facility] Date of 1945 Gender Female Age 77 year(s) Race Room Number 0501 Height: 65 inch, 165.1 cm Corporate ID # [id number] Weight: 208 pounds, 94.3 kg Patient BSA: 2.01 m^2 BMI: 34.61 kg/m^2 MR # [id number] 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 Indications for Study:Groin pain s/p cardiac cath and Hematoma s/p cardiac cath. Patient Status:Out Patient. Technical Quality:Adequate visualization. Conclusions Summary No evidence of pseudoaneurysm in the right groin. Signature Findings: Right Impression: No evidence of pseudoaneurysm in the right groin. Enlarged lymph node in the groin area. Risk Factors - The patient's risk factor(s) include: insulin-treated diabetes mellitus, dyslipidemia, obesity, lack of physical activity and treated arterial hypertension. - The patient's last creatinine was 1.4 mg/dl. Allergies - Allergy:*No Known Allergies(Miscellaneous ). Velocities are measured in cm/s ; Diameters are measured in cm LE Duplex Measurements +---------++-----+----- +------+----+------++-- -+-----+------+----+--- ------ + ! !!Right! !Left ! ! !! ! ! ! ! ! +---------++-----+----- +------+----+------++-- -+-----+------+----+--- ------ + !Location !!PSV !Ratio!Wave !AP !Trans !!PSV!Ratio!Wave !AP !Trans ! ! !! ! !Desc. !Diam!Diam !! ! !Desc. !Diam!Diam ! +---------++-----+----- +------+----+------++-- -+-----+------+----+--- ------ + !Dist EIA !!185 ! ! ! ! !! ! ! ! ! ! +---------++-----+----- +------+----+------++-- -+-----+------+----+--- ------ + !Common !!162 !0.88 ! ! ! !! ! ! ! ! ! !Femoral !! ! ! ! ! !! ! ! ! ! ! +---------++-----+----- +------+----+------++-- -+-----+------+----+--- ------ + !Prox SFA !!174 ! ! ! ! !! ! ! ! ! ! +---------++-----+----- +------+----+------++-- -+-----+------+----+--- ------ + [employer] Phone: Radiology Study observation (narrative) [employer] Phone: VL DUP LOWER EXTREMITY ARTER IES RIGHTOrdered By: Darnell Burk on 12-07-2022 [employer] Phone: CHLORIDE (POC)on 11-24-2022 Chloride [Moles/Vol] 105 mmol/L 98 - 107 mmol/L [facility] Creatinine W/GFR Point of Ca reon 11-24-2022 Creatinine [Mass/Vol] 1.5 mg/dL High 0.51 - 1.19 mg/dL [facility] eGFR, POC 36 mL/min/1.73m 2 [facility] Comment on above: Effective Aug 17, 2022 These results are not intended for use in patients <18 years of age. eGFR results are calculated without a race factor using the 2020 CKD-EPI equation. Careful clinical correlation is recommended, particularly when comparing to results calculated using previous equations. The CKD-EPI equation is less accurate in patients with extremes of muscle mass, extra-renal metabolism of creatine, excessive creatine ingestion, or following therapy that affects renal tubular secretion. Hemoglobin and hematocrit, b loodon 11-24-2022 Hematocrit (Bld) [Volume fraction] 26 % Low 36 - 46 % [facility] Hemoglobin (Bld) [Mass/Vol] 8.7 g/dL Low 12.0 - 16.0 g/dL [facility] No Panel Informationon 11-24 Interpretation and review of laboratory results Abnormal [facility] POCT Glucoseon 11-24-2022 Glucose [Mass/Vol] 135 mg/dL High 74 - 100 mg/dL [facility] POCT urea (BUN)on 11-24-2022 POC BUN Result not available. 8 - 26 mg/dL B ON [facility] POTASSIUM (POC)on 11-24-2022 Potassium [Moles/Vol] 5.3 mmol/L High 3.5 - 4.5 mmol/L [facility] Platelet Counton 11-24-2022 Platelets (Bld) [#/Vol] 314 10*3/uL Normal 138-453 [facility] Comment on above: Performed By: #### P LT #### [employer] [facility] [place] [id number] Head Custodian: Luis Solis MD Platelets (Bld) [#/Vol] 314 10*3/uL [facility] SODIUM (POC)on 11-24-2022 Sodium [Moles/Vol] 142 mmol/L 138 - 146 mmol/L [facility] Cult,Bloodon 10-03-2022 Cult,Blood Specimen Description .BLOOD Special Requests L AC 10ML Culture NO GROWTH 5 DAYS Report Status FINAL 10/03/2022 Normal [facility] Comment on above: Performed By: #### B C #### [address] [address] Head Custodian: Luis Solis MD Cult,Blood Specimen Description .BLOOD Special Requests R AC 10ML Culture NO GROWTH 5 DAYS Report Status FINAL 10/03/2022 Normal [facility] Comment on above: Performed By: #### H H, BMPX #### [facility] [employer] [address] [place] [address] Head Custodian: Luis Solis MD Basic Metab w/rfx MGon 09-30 Anion gap [Moles/Vol] 9 mmol/L Normal -17 [facility] Comment on above: Performed By: #### H H, BMPX #### [facility] [employer] [address] [place] [address] Head Custodian: Luis Solis MD Calcium [Mass/Vol] 8.8 mg/dL Normal 8.6-10.4 [facility] Comment on above: Performed By: #### H H, BMPX #### [facility] [employer] [address] [place] [address] Head Custodian: Luis Solis MD Chloride [Moles/Vol] 102 mmol/L Normal 98-107 [facility] Comment on above: Performed By: #### H H, BMPX #### [facility] [employer] [address] [place] [address] Head Custodian: Luis Solis MD CO2 [Moles/Vol] 28 mmol/L Normal 20-31 [facility] Comment on above: Performed By: #### H H, BMPX #### [facility] [employer] [address] [place] [address] Head Custodian: Luis Solis MD Creatinine [Mass/Vol] 1.28 mg/dL High 0.50-0.90 [facility] Comment on above: Performed By: #### H H, BMPX #### [facility] [address] [place] [address] Head Custodian: Luis Solis MD GFR/1.73 sq M.predicted among non-blacks MDRD (S/P/Bld) [Vol rate/Area] 43 mL/min/{1.73_m2} Low >60 [facility] Comment on above: Result Comment: Effective Aug 17, 2022 These results are not intended for use in patients <18 years of age. eGFR results are calculated without a race factor using the 2020 CKD-EPI equation. Careful clinical correlation is recommended, particularly when comparing to results calculated using previous equations. The CKD-EPI equation is less accurate in patients with extremes of muscle mass, extra-renal metabolism of creatine, excessive creatine ingestion, or following therapy that affects renal tubular secretion. Performed By: #### H H, BMPX #### [facility] [address] [place] [address] Head Custodian: Luis Solis MD Glucose [Mass/Vol] 141 mg/dL High 70-99 [facility] Comment on above: Performed By: #### H H, BMPX #### [facility] [address] [place] [address] Head Custodian: Luis Solis MD Potassium [Moles/Vol] 4.0 mmol/L Normal 3.7-5.3 [facility] Comment on above: Performed By: #### H H, BMPX #### [employer] [address] [place] [address] Head Custodian: Luis Solis MD Sodium [Moles/Vol] 139 mmol/L Normal 135-144 [facility] Comment on above: Performed By: #### H H, BMPX #### [employer] [address] [place] [address] Head Custodian: Luis Solis MD Urea nitrogen [Mass/Vol] 18 mg/dL Normal 8-23 [facility] Comment on above: Performed By: #### H H BMPX #### [employer] [facility] [place] [address] Head Custodian: Luis Solis MD Cult,Urineon 09-30-2022 Cult,Urine Specimen Description .URINE,STRAIGHT CATHETER Culture ESCHERICHIA COLI >[id number] CFU/ML AEROCOCCUS URINAE 50 to 100,000 CFU/ML There are no CLSI interpretive guidelines for routine susceptibility testing. Aerococcus species are reported to be susceptible to penicillin. A. urinae has also been described as susceptible to amoxicillin and nitrofurantoin (for treatment of urinary tract infections only). STREPTOCOCCUS ANGINOSUS 50 to 100,000 CFU/ML Report Status FINAL 09/30/2022 SUSCEPTIBILITY Organism ESCHERICHIA COLI Method [facility] Ampicillin 4 SUSCEPTIBLE Aztreonam <=1 SUSCEPTIBLE Cefazolin <=4 SUSCEPTIBLE Cefazolin sensitivity results can be used to predict the effectiveness of oral cephalosporins (eg. Cephalexin) in uncomplicated Urinary Tract Infections due to E. coli, K. pneumoniae, and P. mirabilis Ceftriaxone <=1 SUSCEPTIBLE Ciprofloxacin <=0.25 SUSCEPTIBLE ESBL NEGATIVE Gentamicin <=1 SUSCEPTIBLE Nitrofurantoin <=16 SUSCEPTIBLE Tobramycin <=1 SUSCEPTIBLE Trimethoprim/Sulfa <=20 SUSCEPTIBLE Piperacillin/Tazobactam <=4 SUSCEPTIBLE Susceptible [facility] Comment on above: Performed By: #### H H, BMPX #### [employer] [address] [place] [address] [phone] Head Custodian: Luis Solis MD APTTon 09-29-2022 aPTT Coag (Bld) [Time] 30.4 s Normal 20.5-30.5 [facility] Comment on above: Result Comment: IV Heparin Therapy Range: 48.6-77.8 Performed By: #### H H, BMPX #### [employer] [facility] [place] [address] Head Custodian: Luis Solis MD Procalcitoninon 09-29-2022 Procalcitonin 0.23 ng/mL High <0.09 [facility] Comment on above: Result Comment: Suspected Sepsis: <0.50 ng/mL Low likelihood of sepsis. 0.50-2.00 ng/mL Increased likelihood of sepsis. Antibiotics encouraged. >2.00 ng/mL High risk of sepsis/shock. Antibiotics strongly encouraged. Suspected Lower Resp Tract Infections: <0.24 ng/mL Low likelihood of bacterial infection. >0.24 ng/mL Increased likelihood of bacterial infection. Antibiotics encouraged. With successful antibiotic therapy, PCT levels should decrease rapidly. (Half-life of 24 to 36 hours.) Procalcitonin values from samples collected within the first 6 hours of systemic infection may still be low. Retesting may be indicated. Values from day 1 and day 4 can be entered into the Change in Procalcitonin Calculator ([email or web address]) to determine the patient's Mortality Risk Prognosis In healthy neonates, plasma Procalcitonin (PCT) concentrations increase gradually after , reaching peak values at about 24 hours of age then decrease to normal values below 0.5 ng/mL by 48-72 hours of age. Performed By: #### R EJEC, BMPX #### [employer] [address] [place], [place] [id number] Head Custodian: Luis Solis MD APTTon 09-28-2022 aPTT Coag (Bld) [Time] 110.7 s Critically high 20.5-30.5 [facility] Comment on above: Result Comment: IV Heparin Therapy Range: 48.6-77.8 Performed By: #### P TT #### [employer] [address] [place] [address] Head Custodian: Luis Solis MD aPTT Coag (Bld) [Time] 24.1 s Normal 20.5-30.5 [facility] Comment on above: Result Comment: IV Heparin Therapy Range: 48.6-77.8 Performed By: #### H H, BMPX #### [employer] [address] [place] [address] [phone] Head Custodian: Luis Solis MD aPTT Coag (Bld) [Time] 22.6 s Normal 20.5-30.5 [facility] Comment on above: Result Comment: IV Heparin Therapy Range: 48.6-77.8 Performed By: #### H H BMPX #### [facility] [employer] [address] [place] [address] Head Custodian: Luis Solis MD Basic Metab w/rfx MGon 09-28 Anion gap [Moles/Vol] 10 mmol/L Normal 9-17 [facility] Comment on above: Performed By: #### R CHITO BMPX #### [facility] [employer] [address] [place] [address] Head Custodian: Luis Solis MD Calcium [Mass/Vol] 7.6 mg/dL Low 8.6-10.4 [facility] Comment on above: Performed By: #### R CHITO BMPX #### [facility] [employer] [address] [place] [address] Head Custodian: Luis Solis MD Chloride [Moles/Vol] 107 mmol/L Normal 98-107 [facility] Comment on above: Performed By: #### R CHITO BMPX #### [facility] [employer] [address] [place] [address] Head Custodian: Luis Solis MD CO2 [Moles/Vol] 23 mmol/L Normal 20-31 [facility] Comment on above: Performed By: #### R CHITO, BMPX #### [facility] [address] [place] [address] Head Custodian: Luis Solis MD Creatinine [Mass/Vol] 1.33 mg/dL High 0.50-0.90 [facility] Comment on above: Performed By: #### R EJJESE, BMPX #### [facility] [employer] [address] [place] [address] Head Custodian: Luis Solis MD GFR/1.73 sq M.predicted among non-blacks MDRD (S/P/Bld) [Vol rate/Area] 41 mL/min/{1.73_m2} Low >60 [facility] Comment on above: Result Comment: Effective Aug 17, 2022 These results are not intended for use in patients <18 years of age. eGFR results are calculated without a race factor using the 2020 CKD-EPI equation. Careful clinical correlation is recommended, particularly when comparing to results calculated using previous equations. The CKD-EPI equation is less accurate in patients with extremes of muscle mass, extra-renal metabolism of creatine, excessive creatine ingestion, or following therapy that affects renal tubular secretion. Performed By: #### R CHITO BMPX #### [facility] [address] [place] [address] Head Custodian: Luis Solis MD Glucose [Mass/Vol] 243 mg/dL High 70-99 [facility] Comment on above: Performed By: #### R CHITO BMPX #### [facility] [employer] [address] [place] [address] Head Custodian: Luis Solis MD Potassium [Moles/Vol] 4.5 mmol/L Normal 3.7-5.3 [facility] Comment on above: Performed By: #### R CHITO, BMPX #### [facility] [employer] [address] [place] [address] Head Custodian: Luis Solis MD Sodium [Moles/Vol] 140 mmol/L Normal 135-144 [facility] Comment on above: Performed By: #### R CHITO, BMPX #### [facility] [address] [place] [phone] Head Custodian: Luis Solis MD Urea nitrogen [Mass/Vol] 21 mg/dL Normal 8-23 [facility] Comment on above: Performed By: #### R EJEC, BMPX #### [facility] [address] [place] [address] Head Custodian: Luis Solis MD Brain Natri. Peptideon 09-28 Natriuretic peptide B (Bld) [Mass/Vol] 5275 pg/mL High <300 [facility] Comment on above: Result Comment: An age-independent cutoff point of 300 pg/ml has a 98% negative predictive value excluding acute heart failure. Performed By: #### H H, BMPX #### [facility] [address] [place] [address] Head Custodian: Luis Solis MD C-Reactive Proteinon 022 CRP [Mass/Vol] 48.0 mg/L High 0.0-5.0 [facility] Comment on above: Performed By: #### R CHITO, BMPX #### [facility] [employer] [address] [place] [address] Head Custodian: Luis Solis MD CBC with Diffon 09-28-2022 Abs. Basophil 0.06 k/uL Normal 0.00-0.20 [facility] Comment on above: Performed By: #### H H, BMPX #### [facility] [employer] [address] [place] [address] Head Custodian: Luis Solis MD Abs.Imm.Granulocyte 0.16 k/uL Normal 0.00-0.30 [facility] Comment on above: Performed By: #### H H, BMPX #### [facility] [address] [place] [address] Head Custodian: Luis Solis MD Abs.Neutrophil (Seg) 10.78 k/uL High 1.50-8.10 [facility] Comment on above: Performed By: #### H H, BMPX #### [facility] [address] [place] [address] Head Custodian: Luis Solis MD Basophils/100 WBC (Bld) 1 % Normal 0-2 [facility] Comment on above: Performed By: #### H H, BMPX #### [address] [address] Head Custodian: Luis Solis MD Eosinophils (Bld) [#/Vol] 0.20 10*3/uL Normal 0.00-0.44 [facility] Comment on above: Performed By: #### H H, BMPX #### [facility] [employer] [address] [place] [address] Head Custodian: Luis Solis MD Eosinophils/100 WBC (Bld) 2 % Normal 1-4 [facility] Comment on above: Performed By: #### H H, BMPX #### [facility] [employer] [address] [place] [address] Head Custodian: Luis Solis MD Erythrocyte distribution width (RBC) [Ratio] 16.7 % High 11.8-14.4 [facility] Comment on above: Performed By: #### H H, BMPX #### [place] [address] Head Custodian: Luis Solis MD Hematocrit (Bld) [Volume fraction] 27.2 % Low 36.3-47.1 [facility] Comment on above: Performed By: #### H H, BMPX #### [address] [address] Head Custodian: Luis Solis MD Hemoglobin (Bld) [Mass/Vol] 8.1 g/dL Low 11.9-15.1 [facility] Comment on above: Performed By: #### H H, BMPX #### [facility] [employer] [address] [place] [address] Head Custodian: Luis Solis MD Immature granulocytes/100 WBC (Bld) 1 % High 0 [facility] Comment on above: Performed By: #### H H, BMPX #### [facility] [employer] [address] [place] [address] Head Custodian: Luis Solis MD Lymphocytes (Bld) [#/Vol] 0.74 10*3/uL Low 1.10-3.70 [facility] Comment on above: Performed By: #### H H, BMPX #### [address] [address] Head Custodian: Luis Solis MD Lymphocytes/100 WBC (Bld) 6 % Low 24-43 [facility] Comment on above: Performed By: #### H H, BMPX #### [address] [address] Head Custodian: Luis Solis MD MCH (RBC) [Entitic mass] 26.9 pg Normal 25.2-33.5 [facility] Comment on above: Performed By: #### H H, BMPX #### [address] [address] Head Custodian: Luis Solis MD MCHC (RBC) [Mass/Vol] 29.8 g/dL Normal 28.4-34.8 [facility] Comment on above: Performed By: #### H H, BMPX #### [address] [address] Head Custodian: Luis Solis MD MCV (RBC) [Entitic vol] 90.4 fL Normal 82.6-102.9 [facility] Comment on above: Performed By: #### H H, BMPX #### [address] [address] Head Custodian: Luis Solis MD Monocytes (Bld) [#/Vol] 0.78 10*3/uL Normal 0.10-1.20 [facility] Comment on above: Performed By: #### H H, BMPX #### [address] [address] Head Custodian: Luis Solis MD Monocytes/100 WBC (Bld) 6 % Normal 3-12 [facility] Comment on above: Performed By: #### H H, BMPX #### [address] [address] Head Custodian: Luis Solis MD Neutrophil (Seg) 84 % High 36-65 [facility] Comment on above: Performed By: #### H H, BMPX #### [address] [address] Head Custodian: Luis Solis MD NRBC Automated 0.2 per 100 WBC High 0.0 [facility] Comment on above: Performed By: #### H H, BMPX #### [address] [address] Head Custodian: Luis Solis MD Platelet mean volume (Bld) [Entitic vol] 9.9 fL Normal 8.1-13.5 [facility] Comment on above: Performed By: #### H H, BMPX #### [address] [address] Head Custodian: Luis Solis MD Platelets (Bld) [#/Vol] 391 10*3/uL Normal 138-453 [facility] Comment on above: Performed By: #### H H, BMPX #### [address] [address] Head Custodian: Luis Solis MD RBC (Bld) [#/Vol] 3.01 10*6/uL Low 3.95-5.11 [facility] Comment on above: Performed By: #### H H, BMPX #### [address] [address] Head Custodian: Luis Solis MD RBC morphology finding Nom (Bld) ANISOCYTOSIS PRESENT Normal [facility] Comment on above: Performed By: #### H H, BMPX #### [employer] [address] [place] [address] Head Custodian: Luis Solis MD WBC (Bld) [#/Vol] 12.7 10*3/uL High 3.5-11.3 [facility] Comment on above: Performed By: #### H H, BMPX #### [employer] [address] [place] [address] Head Custodian: Luis Solis MD CT CHEST PULMONARY EMBOLISM W CONTRASTon 09-28-2022 CT CHEST PULMONARY EMBOLISM W CONTRAST EXAMINATION: CTA OF THE CHEST 09/28/2022 12:33 am TECHNIQUE: CTA of the chest was performed after the administration of intravenous contrast. Multiplanar reformatted images are provided for review. MIP images are provided for review. Automated exposure control, iterative reconstruction, and/or weight based adjustment of the mA/kV was utilized to reduce the radiation dose to as low as reasonably achievable. COMPARISON: None HISTORY: ORDERING SYSTEM PROVIDED HISTORY: jeffery hollins TECHNOLOGIST PROVIDED HISTORY: jeffery Hollins Decision Support Exception - unselect if not a suspected or confirmed emergency medical condition->Emergency Medical Condition (MA) Reason for Exam: tachlucy hypoxia FINDINGS: Pulmonary Arteries: No evidence of pulmonary embolism. The most distal small branches of pulmonary arteries at the base of lungs are not well visualized due to presence of pulmonary infiltrates and atelectasis. Mediastinum: No evidence of mediastinal lymphadenopathy. No evidence of thoracic aortic aneurysm or dissection. No evidence of pericardial effusion or pericardial thickening. Evidence of at least mild coronary artery calcification. No evidence of mass or pathologic lymphadenopathy or acute process in the mediastinum or at pulmonary hilum in either side. Lungs/pleura: Scattered throughout right lung, there are moderate heterogeneous infiltrates. In the right upper lobe, there are moderate heterogeneous partially confluent infiltrates. In the right pulmonary lower lobe, there is evidence of mild atelectatic changes or infiltrates. In the right mid lung field, evidence of mild atelectatic changes and hazy infiltrates. In the posterior right pulmonary lower lobe and right mid lung, there are findings of pleural effusion, which measures 3.2 cm in AP thickness. There is minimal left-sided pleural effusion. Evidence of mild atelectatic changes and/or infiltrates or fibrotic changes in the left pulmonary lower lobe. There are heterogeneous hazy opacities with ground-glass type opacities in the left pulmonary upper lobe and left lingula. No evidence of pleural effusion or pneumothorax or pneumomediastinum. Upper Abdomen: Limited images of the upper abdomen demonstrate no acute abnormality. Evidence of ventriculoperitoneal shunt tube in place. Soft Tissues/Bones: Moderate multilevel degenerative disc disease throughout thoracic spine. No obvious diagnostic finding in the soft tissues of chest wall. IMPRESSION: No evidence of pulmonary embolism. No evidence of thoracic aortic aneurysm or dissection. Moderate to marked heterogeneous infiltrates present throughout right lung. In bilateral pulmonary upper lobes and left lingula, there are heterogeneous infiltrates with confluent components as well as ground-glass components. In the right pulmonary lower lobe, there are findings of atelectatic changes and infiltrates. Right pleural effusion measuring 3.2 cm in thickness. Mild to moderate heterogeneous and ground-glass infiltrates throughout most of left lung. Minimal left pleural effusion. Interpreted by: Matthew Chong MD Signed by: Matthew Chong MD 09/28/22 Final result Normal [facility] Comp Metabolic Profon 2021 Albumin [Mass/Vol] 3.5 g/dL Normal 3.5-5.2 [facility] Comment on above: Performed By: #### H H, BMPX #### [facility] [employer] [address] [place] [address] Head Custodian: Luis Solis MD Albumin/Glob Ratio 0.9 Low 1.0-2.5 [facility] Comment on above: Performed By: #### H H, BMPX #### [facility] [employer] [address] [place] [phone] Head Custodian: Luis Solis MD Alkaline Phos 104 U/L Normal 35-104 [facility] Comment on above: Performed By: #### H H, BMPX #### [facility] [employer] [address] [place] [address] [phone] Head Custodian: Luis Solis MD ALT [Catalytic activity/Vol] 7 U/L Normal 5-33 [facility] Comment on above: Performed By: #### H H, BMPX #### [address] [address] Head Custodian: Luis Solis MD Anion gap [Moles/Vol] 13 mmol/L Normal 9-17 [facility] Comment on above: Performed By: #### H H, BMPX #### [facility] [employer] [address] [place] [address] Head Custodian: Luis Solis MD AST [Catalytic activity/Vol] 15 U/L Normal <32 [facility] Comment on above: Performed By: #### H H, BMPX #### [address] [address] Head Custodian: Luis Solis MD Bilirubin [Mass/Vol] 0.5 mg/dL Normal 0.3-1.2 [facility] Comment on above: Performed By: #### H H, BMPX #### [address] [address] Head Custodian: Luis Solis MD Calcium [Mass/Vol] 8.5 mg/dL Low 8.6-10.4 [facility] Comment on above: Performed By: #### H H, BMPX #### [address] [address] Head Custodian: Luis Solis MD Chloride [Moles/Vol] 102 mmol/L Normal 98-107 [facility] Comment on above: Performed By: #### H H, BMPX #### [address] [address] Head Custodian: Luis Solis MD CO2 [Moles/Vol] 24 mmol/L Normal 20-31 [facility] Comment on above: Performed By: #### H H, BMPX #### [facility] [employer] [address] [place] [address] Head Custodian: Luis Solis MD Creatinine [Mass/Vol] 1.62 mg/dL High 0.50-0.90 [facility] Comment on above: Performed By: #### H H, BMPX #### [employer] [address] [place] [address] Head Custodian: Luis Solis MD GFR/1.73 sq M.predicted among non-blacks MDRD (S/P/Bld) [Vol rate/Area] 33 mL/min/{1.73_m2} Low >60 [facility] Comment on above: Result Comment: Effective Aug 17, 2022 These results are not intended for use in patients <18 years of age. eGFR results are calculated without a race factor using the 2020 CKD-EPI equation. Careful clinical correlation is recommended, particularly when comparing to results calculated using previous equations. The CKD-EPI equation is less accurate in patients with extremes of muscle mass, extra-renal metabolism of creatine, excessive creatine ingestion, or following therapy that affects renal tubular secretion. Performed By: #### H H, BMPX #### [employer] [address] [place] [address] Head Custodian: Luis Solis MD Glucose [Mass/Vol] 272 mg/dL High 70-99 [facility] Comment on above: Performed By: #### H H, BMPX #### [employer] [address] [place] [address] Head Custodian: Luis Solis MD Potassium [Moles/Vol] 4.4 mmol/L Normal 3.7-5.3 [facility] Comment on above: Performed By: #### H H, BMPX #### [employer] [address] [place] [address] Head Custodian: Lius Solis MD Protein [Mass/Vol] 7.3 g/dL Normal 6.4-8.3 [facility] Comment on above: Performed By: #### H H, BMPX #### [employer] [address] [place] [address] Head Custodian: Luis Solis MD Sodium [Moles/Vol] 139 mmol/L Normal 135-144 [facility] Comment on above: Performed By: #### H H, BMPX #### [address] [address] Head Custodian: Luis Solis MD Urea nitrogen [Mass/Vol] 22 mg/dL Normal 8-23 [facility] Comment on above: Performed By: #### H H, BMPX #### [address] [address] Head Custodian: Luis Solis MD Lactate, Sepsison 09-28-2022 Lactic Acid,Sep Wbld 0.6 mmol/L Normal 0.5-1.9 [facility] Comment on above: Performed By: #### R EJEC, BMPX #### [address] [address] Head Custodian: Luis Solis MD Lactic Acid,Sep Wbld 1.5 mmol/L Normal 0.5-1.9 [facility] Comment on above: Performed By: #### H H, BMPX #### [address] [address] Head Custodian: Luis Solis MD Legionella Ag, Uron 09-28-20 Legionella Ag, Ur Negative Normal NEG [facility] Comment on above: Result Comment: L. p neumophila serogroup 1 antigen not detected. A negative result does not exclude infection with Leginella pnemophila serogroup 1 nor does it rule out other microbial-caused respiratory infections of disease caused by other serogroups of Legionella pneumophila. Performed By: #### H H, BMPX #### [address] [address] Head Custodian: Luis Solis MD PTon 09-28-2022 INR Coag (PPP) [Relative time] 1.1 {INR} Normal [facility] Comment on above: Result Comment: Therapeutic Range: Moderate Anticoagulant Intensity: INR = 2.0-3.0 High Anticoagulant Intensity: INR = 2.5-3.5 Performed By: #### H H, BMPX #### [employer] [facility] [place] [address] Head Custodian: Luis Solis MD PT Coag (PPP) [Time] 11.8 s Normal 9.1-12.3 [facility] Comment on above: Performed By: #### H H, BMPX #### [employer] [address] [place] [address] [phone] Head Custodian: Luis Solis MD [id number] 09-28-2022 SARS-CoV-2 (COVID-19) RNA SIRI+probe Ql (Unsp spec) Not detected Normal NOTDET [facility] Comment on above: Result Comment: Rapid NAAT: The specimen is NEGATIVE for SARS-CoV-2, the novel coronavirus associated with COVID-19. The ID NOW COVID-19 assay is designed to detect the virus that causes COVID-19 in patients with signs and symptoms of infection who are suspected of COVID-19. An individual without symptoms of COVID-19 and who is not shedding SARS-CoV-2 virus would expect to have a negative (not detected) result in this assay. Negative results should be treated as presumptive and, if inconsistent with clinical signs and symptoms or necessary for patient management, should be tested with an alternative molecular assay. Negative results do not preclude SARS-CoV-2 infection and should not be used as the sole basis for patient management decisions. Fact sheet for Healthcare Providers: https://www.fda.gov/media/024391/download Fact sheet for Patients: https://www.fda.gov/media/420183/download Methodology: Isothermal Nucleic Acid Amplification Performed By: #### R EJEC, BMPX #### [facility] [address] [place] [address] [phone] Head Custodian: Luis Solis MD Sedimentation Rateon 022 Sedimentation Rate 61 mm/Hr High 0-30 [facility] Comment on above: Performed By: #### R CHITO, BMPX #### [facility] [employer] [address] [place] [address] Head Custodian: Luis Solis MD Strep pneum Ag,CSF/Uron - Strep pneum Ag Negative Normal [facility] Comment on above: Result Comment: Stre p pneumoniae antigen not detected Performed By: #### R ZAINABEC, BMPX #### [facility] [address] [place] [address] Head Custodian: Luis Solis MD Strep pneu Ag Source .URINE Normal [facility] Comment on above: Performed By: #### R CHITO, BMPX #### [employer] [facility] [place] [address] Head Custodian: Luis Solis MD Troponinon 09-28-2022 Troponin, High Sens 222 ng/L Critically high 0-14 [facility] Comment on above: Result Comment: High Sensitivity Troponin values cannot be compared with other Troponin methodologies. Patients with high levels of Biotin oral intake (i.e >5mg/day) may have falsely decreased Troponin levels. Samples collected within 8 hours of biotin intake may require additional information for diagnosis. Performed By: #### R CHITO, BMPX #### [employer] [address] [place] [address] Head Custodian: Luis Solis MD Troponin, High Sens 219 ng/L Critically high 0-14 [facility] Comment on above: Result Comment: High Sensitivity Troponin values cannot be compared with other Troponin methodologies. Patients with high levels of Biotin oral intake (i.e >5mg/day) may have falsely decreased Troponin levels. Samples collected within 8 hours of biotin intake may require additional information for diagnosis. Performed By: #### H H, BMPX #### [employer] [address] [place] [address] Head Custodian: Luis Solis MD Type + Screenon 09-28-2022 Type + Screen Sample Expiration 10/01/2022,2359 Arm Band Number [id number] ABO/Rh(D) O NEGATIVE Antibody Screen NEGATIVE Normal [facility] Comment on above: Performed By: #### H H, BMPX #### [address] [address] Head Custodian: Luis Solis MD Urinalysis w/ Microon 2021 Bacteria MANY Abnormal NONE [facility] Comment on above: Performed By: #### H H, BMPX #### [address] [address] Head Custodian: Luis Solis MD Bilirubin, SemiQt,Ur Negative Normal NEG [facility] Comment on above: Performed By: #### H H, BMPX #### [address] [address] Head Custodian: Luis Solis MD Blood, Urine Negative Normal NEG [facility] Comment on above: Performed By: #### H H, BMPX #### [address] [address] Head Custodian: Luis Solis MD Casts 0 TO 2 HYALINE Normal 0-8 [facility] Comment on above: Result Comment: Refe rence range defined for non-centrifuged specimen. Performed By: #### H H, BMPX #### [address] [address] Head Custodian: Luis Solis MD Clarity (U) Cloudy Abnormal CLEAR [facility] Comment on above: Performed By: #### H H, BMPX #### [address] [address] Head Custodian: Luis Solis MD Color (U) Yellow Normal YEL [facility] Comment on above: Performed By: #### H H, BMPX #### [facility] [employer] [address] [place] [address] Head Custodian: Luis Solis MD Epithelial cells LM Ql (Urine sed) 5 TO 10 Normal 0-5 [facility] Comment on above: Performed By: #### H H, BMPX #### [facility] [employer] [address] [place] [address] Head Custodian: Luis Solis MD Glucose Ql (U) 2+ Abnormal NEG [facility] Comment on above: Performed By: #### H H, BMPX #### [address] [address] Head Custodian: Luis Solis MD Ketones Ql (U) TRACE Abnormal NEG [facility] Comment on above: Performed By: #### H H, BMPX #### [address] [address] Head Custodian: Luis Solis MD Leukocyte esterase Test strip Ql (U) TRACE Abnormal NEG [facility] Comment on above: Performed By: #### H H, BMPX #### [address] [address] Head Custodian: Luis Solis MD Nitrite,Ur Negative Normal NEG [facility] Comment on above: Performed By: #### H H, BMPX #### [facility] [employer] [address] [place] [address] Head Custodian: Luis Solis MD PH,Ur 5.5 Normal 5.0-8.0 [facility] Comment on above: Performed By: #### H H, BMPX #### [facility] [employer] [address] [place] [address] Head Custodian: Luis Solis MD Protein Ql (U) TRACE Abnormal NEG [facility] Comment on above: Performed By: #### H H, BMPX #### [facility] [address] [place] [address] Head Custodian: Luis Solis MD Spec. Alvarado,Ur 1.018 Normal 1.005-1.030 [facility] Comment on above: Performed By: #### H H, BMPX #### [address] [address] Head Custodian: Luis Solis MD Urine RBC's 0 TO 2 Normal 0-4 [facility] Comment on above: Result Comment: Refe rence range defined for non-centrifuged specimen. Performed By: #### H H, BMPX #### [facility] [employer] [address] [place] [address] Head Custodian: Luis Solis MD Urine WBC's 10 TO 20 Normal 0-5 [facility] Comment on above: Performed By: #### H H, BMPX #### [address] [address] Head Custodian: Luis Solis MD Urobilinogen,Ur Normal Normal NORM [facility] Comment on above: Performed By: #### H H, BMPX #### [address] [address] Head Custodian: Luis Solis MD XR CHEST PORTABLEon 09-28-20 XR CHEST PORTABLE EXAMINATION: ONE XRAY VIEW OF THE CHEST 09/28/2022 12:54 am COMPARISON: None. HISTORY: ORDERING SYSTEM PROVIDED HISTORY: sepsis TECHNOLOGIST PROVIDED HISTORY: sepsis FINDINGS: Right greater than left perihilar predominant ground-glass and consolidative opacities. No pneumothorax or pleural effusion. Cardiomegaly. Mediastinal contours normal. Right internal jugular center venous catheter tip in the SVC. No acute osseous abnormality. IMPRESSION: 1. Right greater than left pulmonary opacities concerning for multifocal pneumonia. 2. Cardiomegaly. 3. Right internal jugular center venous catheter tip in the SVC. Interpreted by: Garth Herr MD Signed by: Garth Herr MD 09/28/22 Final result Normal [facility] CT BRAIN WO CONTRASTon 03-31 CT BRAIN WO CONTRAST [facility] Department of Radiology [address] [place] [address] ===== Patient Name: CUCA GOODWIN : 1945 Sex: F Age: Race: White Pt. 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 TECHNIQUE: Multidetector CT axial slices of the brain without IV contrast. Multiplanar reformats were performed and viewed on a separate workstation and reviewed to further define anatomy and possible pathology. All CT scans at this facility use dose modulation, iterative reconstruction, and/or weight based dosing when appropriate to reduce radiation dose to as low as reasonably achievable COMPARISON: 09/17/2020 FINDINGS: Shunt tubing is stable. The ventricles remain mildly prominent. There is no mass or hemorrhage. The basilar cisterns are patent. IMPRESSION: No change. Electronically signed: Mari Chavez. 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 COMPARISON: 09/17/2020. Findings: Right frontal approach ventriculostomy catheter, expected radiolucent reservoir with catheter tubing coursing down the soft tissues of the right neck, thorax into the abdomen with tip terminating within the left hemipelvis. No evidence of kinking or discontinuity. Shunt setting roughly 120-130 mm water. No acute abnormality the chest or abdomen. Moderate stool burden. IMPRESSION: 1. Shunt catheter as described. Electronically signed: Lam Chew. Transcribed by: [email or web address], User Resident: Electronically Signed by: LAM CHEW @ 04/03/2022 08:50 AM Normal [facility] Comment on above: Order Comment: , .br E.brEr/o kinking or discontinuity of shunt tubing and do image perpendicularl to valve to check OP , .brr/o kinking or discontinuity of shunt tubing and do image perpendicularl to valve to check OP , , , Ordering Provider - Danielle RAWLS RADAR TESTER , Lipid Profileon 03-26-2021 Cholesterol [Mass/Vol] 117 mg/dL Normal <200 [facility] Comment on above: Result Comment: Cholesterol Guidelines: <200 Desirable 200-240 Borderline >240 Undesirable Performed By: #### L IPR #### [employer] [address] [place] [address] Head Custodian: Luis Solis MD Cholesterol in HDL [Mass/Vol] 39 mg/dL Low >40 [facility] Comment on above: Result Comment: HDL Guidelines: <40 Undesirable 40-59 Borderline >59 Desirable Performed By: #### L IPR #### [employer] [address] [place], [place] [id number] Head Custodian: Luis Solis MD Cholesterol in LDL [Mass/Vol] 62 mg/dL Normal 0-130 [facility] Comment on above: Result Comment: LDL Guidelines: <100 Desirable 100-129 Near to/above Desirable 130-159 Borderline >159 Undesirable Direct (measured) LDL and calculated LDL are not interchangeable tests. Performed By: #### L IPR #### [employer] [address] [place] [address] Head Custodian: Luis Solis MD Cholesterol.total/C holesterol in HDL [Mass ratio] 3.0 {ratio} Normal <5 [facility] Comment on above: Performed By: #### L IPR #### [facility] [address] [place] [address] Head Custodian: Luis Solis MD Triglyceride [Mass/Vol] 79 mg/dL Normal <150 [facility] Comment on above: Result Comment: Triglyceride Guidelines: <150 Desirable 150-199 Borderline 200-499 High >499 Very high Based on AHA Guidelines for fasting triglyceride, August 2012. Performed By: #### L IPR #### [id number] [place] [address] Head Custodian: Luis Solis MD Cholesterol,VLDL NOT REPORTED Normal -30 [facility] Comment on above: Performed By: #### L IPR #### [address] [address] Head Custodian: Luis Solis MD Uric Acidon 03-24-2021 Urate [Mass/Vol] 6.8 mg/dL High 2.4-5.7 [facility] Comment on above: Performed By: #### U RI #### [facility] [address] [place] [address] Head Custodian: Giovanny Carpenter MD Uric AcidOrdered By: Lakeshia Henriquez on 03-24-2021 Interpretation and review of laboratory results Abnormal [facility] [employer] Phone: Urate [Mass/Vol] 6.8 mg/dL High 2.4 - 5.7 mg/dL [facility] [employer] Phone: CBC AUTO DIFFon 03-20-2021 BASO # 0.0 103/ul Normal 0.0-0.1 [facility] Comment on above: Performed By: #### C BC #### [facility] [address] [place], [place] [address] Ghulam Reyes Basophils/100 WBC (Bld) 0.4 % Normal 0.2-2.0 [facility] Comment on above: Performed By: #### C BC #### [facility] [address] [place] [address] Ghulamgabriela Reyes EO # 0.4 103/ul Normal 0.0-0.7 [facility] Comment on above: Performed By: #### C BC #### [facility] [address] [place] [address] Ghulam Amy Eosinophils/100 WBC (Bld) 4.3 % Normal 0.9-7.0 [facility] Comment on above: Performed By: #### C BC #### [facility] [address] [place] [address] Ghulamgabriela Reyes Erythrocyte distribution width (RBC) [Ratio] 15.9 % Critically high 11.0-15.0 [facility] Comment on above: Performed By: #### C BC #### [facility] [address] [place] [address] Ghulamgabriela Reyes Hematocrit (Bld) [Volume fraction] 28.5 % Critically low 36.0-48.0 [facility] Comment on above: Performed By: #### C BC #### [facility] [address] [place] [address] Ghulamgabriela Reyes Hemoglobin (Bld) [Mass/Vol] 8.9 g/dL Critically low 12.0-16.0 [facility] Comment on above: Performed By: #### C BC #### [facility] [address] [place] [address] Ghulam Amy IG # 0.04 10e3/ul Critically high 0.00-0.03 [facility] Comment on above: Performed By: #### C BC #### [facility] [address] [place] [address] Ghulam Amy IG % 0.4 % Normal 0.0-0.5 [facility] Comment on above: Performed By: #### C BC #### [facility] [address] [place] [address] Ghulam Amy LYMPH # 2.2 103/ul Normal 1.2-3.8 [facility] Comment on above: Performed By: #### C BC #### [facility] [address] [place] [address] Ghulam Amy Lymphocytes/100 WBC (Bld) 21.9 % Normal 20.5-60.0 [facility] Comment on above: Performed By: #### C BC #### [facility] [address] [place], [place] [phone] Ghulam Amy MANUAL DIFF REQ NO Normal [facility] Comment on above: Performed By: #### C BC #### [facility] [address] [place], [place] [phone] Ghulam Amy MCH (RBC) [Entitic mass] 27.1 pg Normal 26.7-34.0 [facility] Comment on above: Performed By: #### C BC #### [facility] [address] [place], [place] [phone] Ghulam Amy MCHC (RBC) [Mass/Vol] 31.2 g/dL Normal 29.9-35.2 [facility] Comment on above: Performed By: #### C BC #### [facility] [address] [place], [place] [phone] Ghulam Amy MCV (RBC) [Entitic vol] 86.9 fL Normal 81.0-99.0 [facility] Comment on above: Performed By: #### C BC #### [facility] [address] [place], [place] [phone] Ghulam Amy MONO # 1.0 103/ul Critically high 0.3-0.8 [facility] Comment on above: Performed By: #### C BC #### [facility] [address] [place], [place] [phone] Ghulam Amy Monocytes/100 WBC (Bld) 10.1 % Normal 1.7-12.0 [facility] Comment on above: Performed By: #### C BC #### [facility] [address] [place], [place] [phone] Ghulam Amy NEUT # 6.2 103/ul Normal 1.4-6.5 [facility] Comment on above: Performed By: #### C BC #### [facility] [address], [place] [address] Ghulam Reyes Neutrophils/100 WBC (Bld) 62.9 % Normal 43.0-75.0 [facility] Comment on above: Performed By: #### C BC #### [facility] [address] [place], [place] [address] Ghulamgabriela Reyes Platelet mean volume (Bld) [Entitic vol] 10.2 fL Normal 9.5-13.5 [facility] Comment on above: Performed By: #### C BC #### [facility] [address] [place], [place] [address] Ghulamgabriela Sotoen PLT 289 103/ul Normal 150-450 [facility] Comment on above: Performed By: #### C BC #### [facility] [address] [place], [place] [phone] Ghulam Amy RBC 3.28 106/ul Critically low 4.20-5.40 [facility] Comment on above: Performed By: #### C BC #### [facility] [address] [place] [address] Ghulam Amy WBC 9.9 103/ul Normal 4.0-11.0 [facility] Comment on above: Performed By: #### C BC #### [facility] [address] [place], [place] [phone] Ghulam Reyes PROF 14(COMP METB)on 021 Albumin [Mass/Vol] 2.8 g/dL Critically low 3.5-5.0 [facility] Comment on above: Performed By: #### C MP #### [facility] [address] [address] Ghulamgabriela Reyes Albumin/Globulin [Mass ratio] 0.6 {ratio} Normal [facility] Comment on above: Performed By: #### C MP #### [facility] [address] [place], [place] [phone] Ghulam Amy ALP [Catalytic activity/Vol] 95 U/L Normal 38-126 [facility] Comment on above: Performed By: #### C MP #### [facility] [address] [place] [address] Ghulam Amy ALT [Catalytic activity/Vol] 16 U/L Normal 9-52 [facility] Comment on above: Performed By: #### C MP #### [facility] [address] [place] [phone] Ghulam Amy Anion gap [Moles/Vol] 11.6 mmol/L Normal [facility] Comment on above: Performed By: #### C MP #### [facility] [address] [place] [address] Ghulam Amy AST [Catalytic activity/Vol] 13 U/L Critically low 14-36 [facility] Comment on above: Performed By: #### C MP #### [facility] [address] [place] [address] Ghulam Amy Bilirubin [Mass/Vol] 0.4 mg/dL Normal 0.2-1.3 [facility] Comment on above: Performed By: #### C MP #### [facility] [address] [place] [address] Ghulam Amy Calcium [Mass/Vol] 8.9 mg/dL Normal 8.4-10.2 [facility] Comment on above: Performed By: #### C MP #### [facility] [address] [place], [place] [id number] Ghulam Amy Chloride [Moles/Vol] 103 mmol/L Normal 98-107 [facility] Comment on above: Performed By: #### C MP #### [facility] [address] [place] [address] Ghulam Amy CO2 [Moles/Vol] 27.4 mmol/L Normal 22.0-30.0 [facility] Comment on above: Performed By: #### C MP #### [facility] [address] [place], [place] [id number] Ghulam Amy Creatinine [Mass/Vol] 1.86 mg/dL Critically high 0.52-1.04 [facility] Comment on above: Performed By: #### C MP #### [facility] [address] [place], [place] [id number] Ghulam Amy EGFR-AF GREEK 32 mL/min/1.73m2 Critically low >=60 [facility] Comment on above: Performed By: #### C MP #### [facility] [address] [id number] Ghulam Amy EGFR-NON AF GREEK 26 mL/min/1.73m2 Critically low >=60 [facility] Comment on above: Performed By: #### C MP #### [facility] [address] [id number] Ghulam Amy Globulin (S) [Mass/Vol] 4.6 g/dL Normal [facility] Comment on above: Performed By: #### C MP #### [facility] [address] [id number] Ghulam Amy Glucose [Mass/Vol] 174 mg/dL Critically high 74-106 [facility] Comment on above: Performed By: #### C MP #### [facility] [address] [id number] Ghulam Amy Potassium [Moles/Vol] 4.0 mmol/L Normal 3.4-5.0 [facility] Comment on above: Performed By: #### C MP #### [facility] [address] [id number] Ghulam Amy Protein [Mass/Vol] 7.4 g/dL Normal 6.1-8.2 [facility] Comment on above: Performed By: #### C MP #### [facility] [address] [id number] Ghulam Amy Sodium [Moles/Vol] 138 mmol/L Normal 137-145 [facility] Comment on above: Performed By: #### C MP #### [facility] [address] [id number] Ghulam Amy Urea nitrogen [Mass/Vol] 24.0 mg/dL Critically high 7.0-17.0 [facility] Comment on above: Performed By: #### C MP #### [facility] [address] [id number] Ghulam Amy Urea nitrogen/Creatinine [Mass ratio] 12.9 mg/mg Normal [facility] Comment on above: Performed By: #### C MP #### [facility] [address] [place] [address] Ghulam Amy RESPIRATORY PANEL PLUSon Adenovirus Not detected Normal NOT DETECTED [facility] Comment on above: Performed By: #### R SPLUS #### [facility] [address] [place] [address] Ghulam Amy B. Parapertusis Not detected Normal NOT DETECTED [facility] Comment on above: Performed By: #### R SPLUS #### [facility] [address] [place] [address] Ghulam Amy B. Pertussis Not detected Normal NOT DETECTED [facility] Comment on above: Performed By: #### R SPLUS #### [facility] [address] [place] [address] Ghulam Amy Chlamydia Pneumoniae Not detected Normal NOT DETECTED [facility] Comment on above: Performed By: #### R SPLUS #### [facility] [address] [place] [address] Ghulam Amy Coronavirus 229E Not detected Normal NOT DETECTED [facility] Comment on above: Performed By: #### R SPLUS #### [facility] [address] [place] [address] Ghulam Amy Coronavirus HKU1 Not detected Normal NOT DETECTED [facility] Comment on above: Performed By: #### R SPLUS #### [facility] [address] [place] [address] Ghulam Amy Coronavirus NL63 Not detected Normal NOT DETECTED [facility] Comment on above: Performed By: #### R SPLUS #### [facility] [address] [place] [address] Ghulam Amy Coronavirus OC43 Not detected Normal NOT DETECTED [facility] Comment on above: Performed By: #### R SPLUS #### [facility] [address] [place] [address] Ghulam Amy Influenza A H1 2009 Not detected Normal NOT DETECTED [facility] Comment on above: Performed By: #### R SPLUS #### [facility] [address] [place] [address] Ghulam Amy Influenza B Not detected Normal NOT DETECTED [facility] Comment on above: Performed By: #### R SPLUS #### [facility] [address] [place] [address] Ghulam Amy Metapneumovirus Not detected Normal NOT DETECTED [facility] Comment on above: Performed By: #### R SPLUS #### [facility] [address] [place] [address] Ghulam Amy Mycoplas. Pneumoniae Not detected Normal NOT DETECTED [facility] Comment on above: Performed By: #### R SPLUS #### [facility] [address] [place] [address] Ghulam Amy Parainfluenza 1 Not detected Normal NOT DETECTED [facility] Comment on above: Performed By: #### R SPLUS #### [facility] [address] [place] [address] Ghulam Amy Parainfluenza 2 Not detected Normal NOT DETECTED [facility] Comment on above: Performed By: #### R SPLUS #### [facility] [address] [place] [address] Ghulam Amy Parainfluenza 3 Not detected Normal NOT DETECTED [facility] Comment on above: Performed By: #### R SPLUS #### [facility] [address] [place] [address] Ghulam Amy Parainfluenza 4 Not detected Normal NOT DETECTED [facility] Comment on above: Performed By: #### R SPLUS #### [facility] [address] [place] [address] Ghulam Amy Rhino/Enterovirus Not detected Normal NOT DETECTED [facility] Comment on above: Performed By: #### R SPLUS #### [facility] [address] [place] [address] Ghulam Amy RP2 Header 1 RESPIRATORY PANEL: VIRUSES Normal [facility] Comment on above: Performed By: #### R SPLUS #### [facility] [address] [place] [address] Ghulam Amy RP2 Header 2 RESPIRATORY PANEL: BACTERIA Normal [facility] Comment on above: Performed By: #### R SPLUS #### [facility] [address] [place] [address] Ghulam Reyes RP2 Header 4 EUA SEE BELOW Normal [facility] Comment on above: Result Comment: This test is not yet approved or cleared by the [place] FDA. When there are no FDA-approved or cleared tests available, and other criteria are met, FDA can make tests available under an emergency access mechanism called an Emergency Use Authorization (EUA). The EUA for this test is supported by the Prn Physical Therapist of Health and Human Service?s (HHS?s) declaration that circumstances exist to justify the emergency use of in vitro diagnostics for the detection and/or diagnosis of the virus that causes COVID-19. This EUA will remain in effect (meaning this test can be used) for the duration of the COVID-19 declaration justifying emergency of IVDs, unless it is terminated or revoked by FDA (after which the test may no longer be used). Performed By: #### R SPLUS #### [facility] [address] [place] [address] Ghulam Reyes RSV Not detected Normal NOT DETECTED [facility] Comment on above: Performed By: #### R SPLUS #### [facility] [address] [place] [address] Ghulam Reyes SARS-CoV-2 (COVID-19) RNA SIRI+probe Ql (Unsp spec) Not detected Normal NOT DETECTED [facility] Comment on above: Performed By: #### R SPLUS #### [facility] [address] [place] [address] Ghulam Reyes URIC ACID SERUMon 03-20-2021 Urate [Mass/Vol] 7.4 mg/dL Critically high 2.5-6.2 [facility] Comment on above: Performed By: #### U GIRISH #### [facility] [address] [place] [address] Ghulam Reyes CBC AUTO DIFFon 03-19-2021 BASO # 0.0 103/ul Normal 0.0-0.1 [facility] Comment on above: Performed By: #### C BC #### [facility] [address] [id number] Ghulam Amy Basophils/100 WBC (Bld) 0.3 % Normal 0.2-2.0 [facility] Comment on above: Performed By: #### C BC #### [facility] [address] [address] Ghulam Amy EO # 0.1 103/ul Normal 0.0-0.7 [facility] Comment on above: Performed By: #### C BC #### [facility] [address] [place] [address] Ghulam Amy Eosinophils/100 WBC (Bld) 0.9 % Normal 0.9-7.0 [facility] Comment on above: Performed By: #### C BC #### [facility] [address] [place] [address] Ghulam Amy Erythrocyte distribution width (RBC) [Ratio] 15.5 % Critically high 11.0-15.0 [facility] Comment on above: Performed By: #### C BC #### [facility] [address] [place] [address] Ghulam Amy Hematocrit (Bld) [Volume fraction] 28.1 % Critically low 36.0-48.0 [facility] Comment on above: Performed By: #### C BC #### [facility] [address] [place], [place] [phone] Ghulam Amy Hemoglobin (Bld) [Mass/Vol] 8.9 g/dL Critically low 12.0-16.0 [facility] Comment on above: Performed By: #### C BC #### [facility] [address] [place] [address] Ghulam Amy IG # 0.05 10e3/ul Critically high 0.00-0.03 [facility] Comment on above: Performed By: #### C BC #### [facility] [address] [place], [place] [id number] Ghulam Amy IG % 0.5 % Normal 0.0-0.5 [facility] Comment on above: Performed By: #### C BC #### [facility] [address] [place], [place] [phone] Ghulam Amy LYMPH # 1.9 103/ul Normal 1.2-3.8 [facility] Comment on above: Performed By: #### C BC #### [facility] [address] [place], [place] [phone] Ghulam Amy Lymphocytes/100 WBC (Bld) 17.2 % Critically low 20.5-60.0 [facility] Comment on above: Performed By: #### C BC #### [facility] [address] [place], [place] [id number] Ghulam Amy MANUAL DIFF REQ NO Normal [facility] Comment on above: Performed By: #### C BC #### [facility] [address] [place], [place] [phone] Ghulam Amy MCH (RBC) [Entitic mass] 27.1 pg Normal 26.7-34.0 [facility] Comment on above: Performed By: #### C BC #### [facility] [address] [place] [address] Ghulam Amy MCHC (RBC) [Mass/Vol] 31.7 g/dL Normal 29.9-35.2 [facility] Comment on above: Performed By: #### C BC #### [facility] [address] [place], [place] [phone] Ghulam Amy MCV (RBC) [Entitic vol] 85.4 fL Normal 81.0-99.0 [facility] Comment on above: Performed By: #### C BC #### [facility] [address] [place] [address] Ghulam Amy MONO # 1.0 103/ul Critically high 0.3-0.8 [facility] Comment on above: Performed By: #### C BC #### [facility] [address] [place], [place] [phone] Ghulam Amy Monocytes/100 WBC (Bld) 9.5 % Normal 1.7-12.0 [facility] Comment on above: Performed By: #### C BC #### [facility] [address] [place], [place] [phone] Ghulam Amy NEUT # 7.7 103/ul Critically high 1.4-6.5 [facility] Comment on above: Performed By: #### C BC #### [facility] [address] [phone] Ghulam Reyes Neutrophils/100 WBC (Bld) 71.6 % Normal 43.0-75.0 [facility] Comment on above: Performed By: #### C BC #### [facility] [address] [address] Ghulam Reyes Platelet mean volume (Bld) [Entitic vol] 10.1 fL Normal 9.5-13.5 [facility] Comment on above: Performed By: #### C BC #### [facility] [address] [address] Ghulam Reyes PLT 285 103/ul Normal 150-450 [facility] Comment on above: Performed By: #### C BC #### [facility] [address] [address] Ghulam Reyes RBC 3.29 106/ul Critically low 4.20-5.40 [facility] Comment on above: Performed By: #### C BC #### [facility] [address] [address] Ghulam Reyes WBC 10.7 103/ul Normal 4.0-11.0 [facility] Comment on above: Performed By: #### C BC #### [facility] [address] [address] Ghulam Reyes MAGNESIUMon 03-19-2021 Magnesium [Mass/Vol] 1.9 mg/dL Normal 1.6-2.3 [facility] Comment on above: Performed By: #### M G ####[facility] [address] [id number] Reyes POINT OF CARE GLUCOSEon Glucose [Mass/Vol] 68 mg/dL Critically low 74-106 [facility] Comment on above: Performed By: #### P OCGLUC #### [facility] [address] [place], [place] [address] Ghulam Amy Glucose [Mass/Vol] 91 mg/dL Normal 74-106 [facility] Comment on above: Performed By: #### P OCGLUC #### [facility] [address] [place], [place] [phone] Ghulam Amy Glucose [Mass/Vol] 136 mg/dL Critically high 74-106 [facility] Comment on above: Performed By: #### P OCGLUC #### [facility] [address] [place] [address] Ghulam Amy PROF 14(COMP METB)on 021 Albumin [Mass/Vol] 2.7 g/dL Critically low 3.5-5.0 [facility] Comment on above: Performed By: #### C MP #### [facility] [address] [place], [place] [phone] Ghulam Amy Albumin/Globulin [Mass ratio] 0.6 {ratio} Normal [facility] Comment on above: Performed By: #### C MP #### [facility] [address] [place] [address] Ghulam Amy ALP [Catalytic activity/Vol] 99 U/L Normal 38-126 [facility] Comment on above: Performed By: #### C MP #### [facility] [address] [place] [address] Ghulam Amy ALT [Catalytic activity/Vol] 14 U/L Normal 9-52 [facility] Comment on above: Performed By: #### C MP #### [facility] [address] [place] [address] Ghulam Amy Anion gap [Moles/Vol] 10.5 mmol/L Normal [facility] Comment on above: Performed By: #### C MP #### [facility] [address] [place], [place] [phone] Ghulam Amy AST [Catalytic activity/Vol] 13 U/L Critically low 14-36 [facility] Comment on above: Performed By: #### C MP #### [facility] [address] [place] [address] Ghulam Amy Bilirubin [Mass/Vol] 0.5 mg/dL Normal 0.2-1.3 [facility] Comment on above: Performed By: #### C MP #### [facility] [address], [place] [address] Ghulam Amy Calcium [Mass/Vol] 9.1 mg/dL Normal 8.4-10.2 [facility] Comment on above: Performed By: #### C MP #### [facility] [address], [place] [address] Ghulam Amy Chloride [Moles/Vol] 104 mmol/L Normal 98-107 [facility] Comment on above: Performed By: #### C MP #### [facility] [address], [place] [address] Ghulam Amy CO2 [Moles/Vol] 27.2 mmol/L Normal 22.0-30.0 [facility] Comment on above: Performed By: #### C MP #### [facility] [address] [phone] Ghulam Amy Creatinine [Mass/Vol] 1.57 mg/dL Critically high 0.52-1.04 [facility] Comment on above: Performed By: #### C MP #### [facility] [address], [place] [address] Ghulam Amy EGFR-AF GREEK 39 mL/min/1.73m2 Critically low >=60 [facility] Comment on above: Performed By: #### C MP #### [facility] [address], [place] [address] Ghulam Amy EGFR-NON AF GREEK 32 mL/min/1.73m2 Critically low >=60 [facility] Comment on above: Performed By: #### C MP #### [facility] [address], [place] [address] Ghulam Amy Globulin (S) [Mass/Vol] 4.6 g/dL Normal [facility] Comment on above: Performed By: #### C MP #### [facility] [address], [place] [address] Ghulam Amy Glucose [Mass/Vol] 209 mg/dL Critically high 74-106 [facility] Comment on above: Performed By: #### C MP #### [facility] [address], [place] [address] Ghulam Amy Potassium [Moles/Vol] 3.7 mmol/L Normal 3.4-5.0 [facility] Comment on above: Performed By: #### C MP #### [facility] [address], [place] [address] Ghulam Amy Protein [Mass/Vol] 7.3 g/dL Normal 6.1-8.2 [facility] Comment on above: Performed By: #### C MP #### [facility] [address], [place] [address] Ghulam Amy Sodium [Moles/Vol] 138 mmol/L Normal 137-145 [facility] Comment on above: Performed By: #### C MP #### [facility] [address], [place] [address] Ghulam Amy Urea nitrogen [Mass/Vol] 28.0 mg/dL Critically high 7.0-17.0 [facility] Comment on above: Performed By: #### C MP #### [facility] [address], [place] [address] Ghulam Amy Urea nitrogen/Creatinine [Mass ratio] 17.8 mg/mg Normal [facility] Comment on above: Performed By: #### C MP #### [facility] [address], [place] [address] Ghulam Amy Vital Signs Date Time Vital Sign Value Performing Clinician Cris menendez 01-13-2023 07:13-0500 Body temperature 98.01 [degF] Luna Daniels MD Work Phone: [facility] 01-13-2023 07:13-0500 Diastolic blood pressure 54 mm[Hg] Luna Daniels MD Work Phone: [facility] 01-13-2023 07:13-0500 Heart rate 57 /min Luna Daniels MD Work Phone: [facility] 01-13-2023 07:13-0500 Respiratory rate 18 /min Luna Daniels MD Work Phone: [facility] 01-13-2023 07:13-0500 SaO2% (BldA) [Mass fraction] 98 % Luna Daniels MD Work Phone: [facility] 01-13-2023 07:13-0500 Systolic blood pressure 141 mm[Hg] Luna Daniels MD Work Phone: [facility] 12-11-2022 07:58-0500 Body temperature 98.8 [degF] Luna Daniels MD Work Phone: [facility] 12-11-2022 07:58-0500 Diastolic blood pressure 56 mm[Hg] Luna Daniels MD Work Phone: [facility] 12-11-2022 07:58-0500 Heart rate 85 /min Luna Daniels MD Work Phone: [facility] 12-11-2022 07:58-0500 Respiratory rate 16 /min Luna Daniels MD Work Phone: [facility] 12-11-2022 07:58-0500 SaO2% (BldA) [Mass fraction] 97 % Luna Daniels MD Work Phone: [facility] 12-11-2022 07:58-0500 Systolic blood pressure 156 mm[Hg] Luna Daniels MD Work Phone: [facility] 12-07-2022 11:44-0500 Body height 165.1 cm Luna Daniels MD Work Phone: [facility] 12-07-2022 11:44-0500 Body mass index (BMI) [Ratio] 34.61 kg/m2 Luna Daniels MD Work Phone: [facility] 12-07-2022 11:44-0500 Body weight 94.35 kg Luna Daniels MD Work Phone: [facility] 11-24-2022 11:44-0500 Body height 165.1 cm [facility] 11-24-2022 11:44-0500 Body mass index (BMI) [Ratio] 34.95 kg/m2 [facility] 11-24-2022 11:44-0500 Body temperature 98.4 [degF] Stv [facility] [employer] 11-24-2022 11:44-0500 Body weight 95.25 kg Stv [facility] 11-24-2022 11:44-0500 Diastolic blood pressure 45 mm[Hg] St[facility] 11-24-2022 11:44-0500 Heart rate 60 /min [facility] 11-24-2022 11:44-0500 Respiratory rate 15 /min [facility] [employer] 11-24-2022 11:44-0500 SaO2% (BldA) [Mass fraction] 93 % [facility] 11-24-2022 11:44-0500 Systolic blood pressure 131 mm[Hg] [facility] Encounters Encounter Date Encounter Type Care Provider Facility Start: 03-23-2023 End: 03-24-2023 ambulatory [facility] Start: 01-13-2023 End: [facility]: 01-13-2023 End: 01-15-2023 Subsequent hospital visit by physician Luna Daniels MD Work Phone: [facility] 3C Observation Comment on above: Arrived Severe aortic valve stenosis (Primary Dx); Type 2 diabetes mellitus with diabetic neuropathy, with long-term current use of insulin (HCC); Tremors of nervous system; Family history of coronary arteriosclerosis; CHELSEA (obstructive sleep apnea) nonadherent with cpap; Stage 3a chronic kidney disease (HCC); Coronary artery disease involving [place] coronary artery of [place] tribe heart without angina pectoris Aortic valve stenosi s, etiology of cardiac valve disease unspecified Start: 12-07-2022 End: 12-11-2022 ambulatory LUNA DANIELS [facility] Start: 12-07-2022 End: 12-11-2022 Subsequent hospital visit by physician Luna Daniels MD Work Phone: [facility] 5A Stepdown Comment on above: Severe aortic valve stenosis (Primary Dx) Start: 11-24-2022 End: 11-25-2022 ambulatory FLIP JHA [facility] Start: 11-24-2022 End: 11-24-2022 Subsequent hospital visit by physician [employer] Rm Estuardo COBBVEstefanía Operations Tech Comment on above: Canceled (Case cance lled) Start: 09-28-2022 End: 09-30-2022 Evaluation and management of inpatient CADEN SANCHEZ [facility] Start: 03-31-2022 End: 04-01-2022 ambulatory Vale Bowser Facility:[facility] Start: 03-26-2021 End: 03-27-2021 ambulatory ELIZABETH TOMLINSON [facility] Start: 03-24-2021 End: 03-25-[address] [facility] Start: 03-24-2021 End: 03-24-2021 Subsequent hospital visit by physician Caden Sanchez [facility] Start: 03-19-2021 End: 03-20-2021 ambulatory PAM LEY Facility: Procedures Date Procedure Procedure Detail Performing Clinician Start: 01-13-2023 Brncdilat rspse spmt ry pre&post-brncdilat admn Namrata Blair [employer] Work Phone: Start: 01-13-2023 Ct angiography chest w/contrast/noncontrast Namrata Blair [employer] - [employer] Work Phone: Start: 12-11-2022 Glucose blood reagent strip Luna Daniels MD Work Phone: Start: 12-10-2022 Glucose blood reagent strip Luna Daniels MD Work Phone: Start: 12-10-2022 Glucose blood reagent strip Luna Daniels MD Work Phone: Start: 12-10-2022 Glucose blood reagent strip Luna Daniels MD Work Phone: Start: 12-10-2022 Basic metabolic pane l calcium total Rita Leos [employer] - [employer] Work Phone: Start: 12-10-2022 Antibody screen Luna morales MD Work Phone: Start: 12-10-2022 End: 12-10-2022 Glucose blood reagent strip Luna Daniles MD Work Phone: Start: 12-09-2022 End: 12-09-2022 Blood count hemoglobin Luna Daniels MD Work Phone: Start: 12-09-2022 Glucose blood reagent strip Luna Daniels MD Work Phone: Start: 12-09-2022 End: 12-09-2022 Transfusion of packed red blood cells Radha Nita [employer]IST - [employer] Work Phone: Start: 12-09-2022 Glucose blood reagent strip Luna Daniels MD Work Phone: Start: 12-09-2022 BASIC METABOLIC PANE L W/ REFLEX TO MG FOR LOW K Nadira Jin MD Start: 12-09-2022 End: 12-09-2022 Blood count hemoglobin Nadira Jin MD Start: 12-08-2022 Glucose blood reagent strip Luna Daniels MD Work Phone: Start: 12-08-2022 Blood count hemoglobin Hemindermrachel Trejo MD Work Phone: Start: 12-08-2022 Glucose blood reagent strip Luna Daniels MD Work Phone: Start: 12-08-2022 Blood count hemoglobin Luna Daniels MD Work Phone: Start: 12-08-2022 BASIC METABOLIC PANE L W/ REFLEX TO MG FOR LOW K Ryan Velasquez MD Work Phone: Start: 12-08-2022 SPECIMEN REJECTION Edward Velasquez MD Work Phone: Start: 12-08-2022 End: 12-08-2022 Blood count hemoglobin Luna Daniels MD Work Phone: Start: 12-08-2022 End: 12-08-2022 Transfusion of packed red blood cells Vianey Franklin MD Work Phone: Start: 12-08-2022 Blood count hemoglobin Vianey Franklin MD Work Phone: Start: 12-08-2022 Basic metabolic pane l calcium total Nadira Jin MD Start: 12-07-2022 End: 12-07-2022 Blood count hemoglobin Luna Daniels MD Work Phone: Start: 12-07-2022 Glucose blood reagent strip Luna Daniels MD Work Phone: Start: 12-07-2022 End: 12-07-2022 Transfusion of packed red blood cells Luna Daniels MD Work Phone: Start: 12-07-2022 Dup-scan lxtr art/ar tl bpgs uni/lmtd study Sebastian Martinez MD Work Phone: Start: 12-07-2022 End: 12-07-2022 Blood count hemoglobin Luna Daniels MD Work Phone: Start: 12-07-2022 Blood typing serologic abo Luna Daniels MD Work Phone: Start: 12-07-2022 Coagulation time activated Luna Daniels MD Work Phone: Start: 12-07-2022 Cardiac catheterization Nadira Jin MD Start: 12-07-2022 Chloride [Moles/volu me] in Serum or Plasma Luna Daniels MD Work Phone: Start: 12-07-2022 CREATININE W/GFR POI NT OF CARE Luna Daniels MD Work Phone: Start: 12-07-2022 Gluc bld gluc mntr d ev cleared fda spec home use Luna Daniels MD Work Phone: Start: 12-07-2022 Potassium [Moles/vol ume] in Serum or Plasma Luna Daniels MD Work Phone: Start: 12-07-2022 Sodium [Moles/volume ] in Serum or Plasma Luna Daniels MD Work Phone: Start: 11-24-2022 Chloride [Moles/volu me] in Serum or Plasma Flip Jha MD Work Phone: Start: 11-24-2022 CREATININE W/GFR POI NT OF CARE Flip Jha MD Work Phone: Start: 11-24-2022 End: 11-24-2022 Gluc bld gluc mntr dev cleared fda spec home use Flip Jha MD Work Phone: Start: 11-24-2022 Potassium [Moles/vol ume] in Serum or Plasma Flip Jha MD Work Phone: Start: 11-24-2022 Sodium [Moles/volume ] in Serum or Plasma Flip Jha MD Work Phone: Start: 03-24-2021 Assay of blood/uric acid Lakeshia Henriquez [employer]IST - [employer]AR TESTER Work Phone: Plan of Treatment Date Care Activity Detail Author Start: 09-02-2023 Lipid panel Lipids [facility] Start: 02-02-2023 End: 02-02-2023 Patient encounter procedure 02/02/2023 Appointment IP Unit [employer] Start: 01-18-2023 End: 01-14-2024 Basic metabolic 1999 panel - Serum or Plasma Basic Metabolic Panel Lab STAT Severe aortic valve stenosis Expected: 01/18/2023, Expires: 01/14/2024 [facility] Work Phone: Comment on above: Expected: 01/18/2023 , Expires: 01/14/2024 Start: 12-17-2022 End: 12-10-2023 Basic metabolic 2000 panel - Serum or Plasma Basic Metabolic Panel Lab Routine Severe aortic valve stenosis Expected: 12/17/2022, Expires: 12/10/2023 [facility] Work Phone: Comment on above: Expected: 12/17/2022 , Expires: 12/10/2023 Start: 12-17-2022 End: 12-10-2023 Hemoglobin and Hematocrit Hemoglobin and Hematocrit Lab Routine Severe aortic valve stenosis Expected: 12/17/2022, Expires: 12/10/2023 [employer] Phone: Comment on above: Expected: 12/17/2022 , Expires: 12/10/2023 Start: 09-28-2022 Annual Wellness Visi t (AWV) Annual Wellness Visit (AWV) [facility] Start: 07-16-2021 Influenza vaccination Flu vacc ine (Season Ended) [facility] Phone: Start: 04-01-2021 COVID-19 Vaccine (3 - Booster for Pfizer series) COVID-19 Vaccine (3 - Booster for Pfizer series) [facility] Start: 1996 Shingles vaccine (1 of 2) Shingles v accine (1 of 2) [facility] Start: 1965 DTaP/Tdap/Td vaccine (1 - Tdap) DTaP/Tdap/Td vaccine (1 - Tdap) [facility] Start: 1964 Hepatitis C screening Hepatitis C sc reen [facility] Start: 1962 COVID-19 Vaccine (1) COVID-19 Vaccin e (1) [facility] Phone: Start: 1958 Depression Screen Depression Screen [facility] Start: 1945 Creatinine measurement Creatinine mo nitoring [facility] Phone: Start: 1945 Potassium monitoring Potassium monit oring [facility] Phone: End: 12-07-2022 Blood Bank Specimen [employer] Phone: Comment on above: Once for 1 Occurrenc es starting 12/07/2022 until 12/07/2022 End: 11-24-2022 Catheterization and angiography procedure details panel Cardiac Catheterization Cardiac Cath Routine One Time for 1 Occurrences starting 11/24/2022 until 11/24/2022 [employer] Phone: Comment on above: One Time for 1 Occur rences starting 11/24/2022 until 11/24/2022 End: 12-07-2022 Catheterization and angiography procedure details panel Cardiac Catheterization Cardiac Cath Routine One Time for 1 Occurrences starting 12/07/2022 until 12/07/2022 [employer] Phone: Comment on above: One Time for 1 Occur rences starting 12/07/2022 until 12/07/2022 End: 01-13-2023 CT CARDIAC W C STC MORP CARD ONLY [facility] Phone: Comment on above: 1 Occurrences starti ng 01/13/2023 until 01/13/2023 End: 12-07-2022 EKG 12 lead EKG 12 lead ECG Routine One Time for 1 Occurrences starting 12/07/2022 until 12/07/2022 [employer] Phone: Comment on above: One Time for 1 Occur rences starting 12/07/2022 until 12/07/2022 Glucose [Mass/volume ] in Serum or Plasma POCT glucose Point of Care Testing Routine 4X Daily (AC & HS) until discontinued starting 12/07/2022 [employer] Phone: Comment on above: 4X Daily (AC & HS) u ntil discontinued starting 12/07/2022 End: 12-10-2022 Hemoglobin and Hematocrit Hemoglobin and Hematocrit Lab STAT Post Transfusion Post Transfusion Post Transfustion for 1 Occurrences starting 12/09/2022 until 12/10/2022 [employer] Phone: Comment on above: Post Transfusion Pos t Transfusion Post Transfustion for 1 Occurrences starting 12/09/2022 until 12/10/2022 Oxygen therapy [[facility] Data Set] Initiate Oxygen Therapy Protocol Respiratory Care Routine As Needed until discontinued starting 11/24/2022 [employer] Phone: Comment on above: As Needed until disc ontinued starting 11/24/2022 Oxygen therapy [[facility] Data Set] Initiate Oxygen Therapy Protocol Respiratory Care Routine As Needed until discontinued starting 12/07/2022 [employer] Phone: Comment on above: As Needed until disc ontinued starting 12/07/2022 Oxygen therapy [[facility] Data Set] Initiate Oxygen Therapy Protocol Respiratory Care Routine As Needed until discontinued starting 12/07/2022 [facility] Comment on above: As Needed until disc ontinued starting 12/07/2022 End: 11-24-2022 POC CHEM8 INCLUDES CALC. ANION GAP POC CHEM8 INCLUDES CALC. ANION GAP Point of Care Testing STAT One Time for 1 Occurrences starting 11/24/2022 until 11/24/2022 [employer] Phone: Comment on above: One Time for 1 Occur rences starting 11/24/2022 until 11/24/2022 End: 12-07-2022 POC CHEM8 INCLUDES CALC. ANION GAP POC CHEM8 INCLUDES CALC. ANION GAP Point of Care Testing STAT One Time for 1 Occurrences starting 12/07/2022 until 12/07/2022 [employer] Phone: Comment on above: One Time for 1 Occur rences starting 12/07/2022 until 12/07/2022 End: 12-07-2022 PREPARE RBC (CROSSMATCH), 1 Units PREPARE RBC (CROSSMATCH), 1 Units Blood Bank STAT Once for 1 Occurrences starting 12/07/2022 until 12/07/2022 [employer] Phone: Comment on above: Once for 1 Occurrenc es starting 12/07/2022 until 12/07/2022 End: 12-08-2022 PREPARE RBC (CROSSMATCH), 1 Units PREPARE RBC (CROSSMATCH), 1 Units Blood Bank Routine Once for 1 Occurrences starting 12/08/2022 until 12/08/2022 [employer] Phone: Comment on above: Once for 1 Occurrenc es starting 12/08/2022 until 12/08/2022 End: 12-09-2022 PREPARE RBC (CROSSMATCH), 1 Units PREPARE RBC (CROSSMATCH), 1 Units Blood Bank Routine Once for 1 Occurrences starting 12/09/2022 until 12/09/2022 [employer] Phone: Comment on above: Once for 1 Occurrenc es starting 12/09/2022 until 12/09/2022 End: 12-08-2022 PREVIOUS SPECIMEN [facility] Phone: Comment on above: Once for 1 Occurrenc es starting 12/08/2022 until 12/08/2022 Payers Date Payer Category Payer Medicare [id number] 2017 Medicaid [id number] 2017 Unknown [id number] 1959 Medicaid [id number] 1945 Unknown [id number] 1945 Unknown [id number] [id number] 1945 Unknown [id number] 2.16. [id number] 1945 Unknown [id number] 2.16. [id number] 1945 Unknown [id number] 2.16. [id number] 1945 Unknown [id number] 2.16. [id number] 1945 Unknown [id number] 2.16. [id number] 1945 Unknown [id number] 2.16. [id number] 1945 Unknown [id number] 2.16. [id number] 1945 Unknown [id number] 2.16. [id number] Social History Date Type Detail Facility Start: 10-02-2014 End: 10-15-2014 Tobacco smoking status [facility] Start: 10-15-2014 End: 01-13-2023 Alcohol intake Current non-drinker of alcohol (finding) [facility] [employer] Work Phone: Start: 10-02-2014 Alcohol Comment occaisional [facility] Work Phone: Start: 1945 Sex Assigned At Not on file [facility] [employer] Work Phone: Start: 11-14-2022 End: 12-07-2022 Exposure to SARS-CoV-2 (event) Not sure [facility] Clinical Notes 03-20-2021 to 03-23-2023 Stefanie Lu RN - 12/11/2022 11:07 AM Lamont Maldonado PT - 12/10/2022 11:46 AM Farhana Casillas PTA - 12/09/2022 1:06 PM Lorraine Moya APRN - [place] - 12/09/2022 11:13 AM EST Note Date & Type Note Facility 03-23-2023 Note SUBJECTIVE: Chief complaint: [employer]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 Had MRI thoracic and lumbar spine done at [facility] last week due to concern for spinal metastasis from. Needs shunt reprogrammed. Family member states was told by our staff here that this was the soonest patient could be seen. Patient denies headaches. She does report dizziness as well as worsening memory. She feels like her walking has been worse and she fell last week. Review of systems: As in HPI. Past Medical History: Diagnosis Date Aortic stenosis Asthma Atrial fibrillation (CMS/HCC) Cancer (CMS/HCC) 02/2023 right breast, metastatic Cataract CKD (chronic kidney disease) Coronary artery disease Depression Diabetes mellitus (CMS/HCC) Dyslipidemia GERD (gastroesophageal reflux disease) Hypertension NPH (normal pressure hydrocephalus) (CMS/HCC) PVD (peripheral vascular disease) (CMS/HCC) Sleep apnea Past Surgical History: Procedure Laterality Date BREAST BIOPSY Right 03/01/2023 CATARACT EXTRACTION SECTION, CLASSIC CORONARY ANGIOPLASTY WITH STENT PLACEMENT 2022 HYSTEROSCOPY IR MISC SHUNTOGRAM 06/27/2020 IR MISC SHUNTOGRAM CHILDERS CONVERSION IR MISC SHUNTOGRAM 04/03/2022 IR MISC SHUNTOGRAM CHILDERS CONVERSION MR HEAD ANGIO WO IV CONTRAST 05/07/2020 MR HEAD ANGIO WO IV CONTRAST 05/07/2020 TONSILLECTOMY VENTRICULOPERITONEAL SHUNT 06/25/2020 [employer] programmable valve. Social History Tobacco Use Smoking status: Never Smokeless tobacco: Never Substance Use Topics Alcohol use: Never Drug use: Never Family History Problem Relation Name Age of Onset Diabetes Mother Hypertension Father Coronary artery disease Father OBJECTIVE: Medications: acetaminophen amLODIPine aspirin atorvastatin blood-glucose meter [facility] cefuroxime cholecalciferol (vitamin D3) clopidogrel Dexcom G6 Sensor device ferrous sulfate FreeStyle Kartik 14 Day [place] mis FreeStyle Kartik 14 Day Sensor kit furosemide gabapentin hydroCHLOROthiazide insulin lispro lancets [facility] letrozole Levemir FlexPen insulin pen melatonin capsule metoprolol succinate XL metoprolol tartrate miscellaneous medical supply [facility] mupirocin ONETOUCH ULTRA BLUE TEST STRIP [facility] OneTouch Ultra Test strip oxybutynin oxybutynin XL pantoprazole pen needle, diabetic needle sertraline SITagliptin phosphate traZODone Current Outpatient Medications: acetaminophen (Tylenol) 500 mg tablet, Take 500 mg by mouth every 6 (six) hours if needed., Disp: , Rfl: amLODIPine (Norvasc) 5 mg tablet, amlodipine 5 mg tablet TAKE 1 TABLET (5 MG TOTAL) BY MOUTH IN THE MORNING., Disp: , Rfl: aspirin 81 mg chewable tablet, aspirin 81 mg tablet Take by oral route., Disp: , Rfl: aspirin 81 mg chewable tablet, Chew 1 tablet in the morning., Disp: , Rfl: aspirin 81 mg EC tablet, Take 81 mg by mouth in the morning., Disp: , Rfl: atorvastatin (Lipitor) 20 mg tablet, atorvastatin 20 mg tablet TAKE 1 TABLET BY MOUTH EVERY DAY FOR 30 DAYS, Disp: , Rfl: atorvastatin (Lipitor) 80 mg tablet, Take 80 mg by mouth in the morning., Disp: , Rfl: blood sugar diagnostic (ONETOUCH ULTRA BLUE TEST STRIP [facility]), OneTouch Ultra Blue Test Strip, Disp: , Rfl: blood sugar diagnostic (OneTouch Ultra Test) strip, OneTouch Ultra Test strips 1 STRIP BY OTHER ROUTE 4 (FOUR) TIMES A DAY BEFORE MEALS AND NIGHTLY., Disp: , Rfl: blood-glucose meter misc, OneTouch Ultra2 Meter, Disp: , Rfl: blood-glucose meter mis, Monitor blood sugars four times daily and as needed, Disp: , Rfl: blood-glucose sensor (Dexcom G6 Sensor) device, , Disp: , Rfl: cefuroxime (Ceftin) 250 mg tablet, cefuroxime axetil 250 mg tablet, Disp: , Rfl: cholecalciferol, vitamin D3, 50 mcg (2,000 unit) capsule, cholecalciferol (vitamin D3) 50 mcg (2,000 unit) capsule TAKE 1 CAPSULE BY MOUTH EVERY DAY, Disp: , Rfl: clopidogrel (Plavix) 75 mg tablet, Take 75 mg by mouth in the morning., Disp: , Rfl: ferrous sulfate 325 (65 Fe) MG EC tablet, Take 325 mg by mouth., Disp: , Rfl: FreeStyle Kartik reader (FreeStyle Kartik 14 Day [place]) misc, FreeStyle Kartik 14 Day [place], Disp: , Rfl: FreeStyle Kartik sensor system (FreeStyle Kartik 14 Day Sensor) kit, FreeStyle Kartik 14 Day Sensor kit, Disp: , Rfl: furosemide (Lasix) 20 mg tablet, Take 20 mg by mouth in the morning., Disp: , Rfl: gabapentin (Neurontin) 100 mg capsule, gabapentin 100 mg capsule TAKE 1 CAPSULE BY MOUTH TWICE A DAY, Disp: , Rfl: hydroCHLOROthiazide (HYDRODiuril) 25 mg tablet, hydrochlorothiazide 25 mg tablet TAKE 1 TABLET BY MOUTH EVERY DAY, Disp: , Rfl: insulin detemir (Levemir FlexPen) 100 unit/mL (3 mL) pen, Levemir FlexTouch U-100 Insulin 100 unit/mL (3 mL) subcutaneous pen INJECT 25 UNITS AT BEDTIME, Disp: , Rfl: insulin lispro (HumaLOG) 100 unit/mL injection, Humalog KwikPen (U-100) Insulin 10 (more content not included)... [facility] 12-11-2022 History of Present illness Narrative Patient discharged home. Discharge instructions were explained and given to the patient, patient verbalized understanding. All belongings were sent with the patient. No signs of acute distress noted, no concerns voiced. Physical Therapy Facility/Department: [address] Physical Therapy Name: Cuca Goodwin : 1945 Date of Service: 12/10/2022 Discharge Recommendations: Patient would benefit from continued therapy after discharge PT Equipment Recommendations Equipment Needed: No Patient Diagnosis(es): The encounter diagnosis was Severe aortic valve stenosis. Past Medical History: has a past medical history of Abnormal stress ECG, Aortic stenosis, Diabetes mellitus (HCC), Hyperlipidemia, and Renal insufficiency. Past Surgical History: has a past surgical history that includes Tonsillectomy; Cataract removal with implant (Bilateral); section; Coronary angioplasty with stent (11/24/2022); and Coronary angioplasty with stent (12/07/2022). Assessment Body Structures, Functions, Activity Limitations Requiring Skilled Therapeutic Intervention: Decreased functional mobility ;Decreased strength;Increased pain;Decreased posture;Decreased ROM;Decreased endurance;Decreased balance Assessment: Pt ambulated 6 ft RW CGA, ambulation distance limited due to RLE with weightbearing. Pt will require 24hr support upon discharge. Recommending continued skilled physical therapy to continue to progress gait training and endurance deficits to maximize independence upon discharge. Therapy Prognosis: Good Decision Making: Low Complexity Requires PT Follow-Up: Yes Activity Tolerance Activity Tolerance: Patient limited by pain Plan Physcial Therapy Plan General Plan: (5-6x/week) Current Treatment Recommendations: Strengthening, ROM, Balance training, Endurance training, Safety education & training, Patient/Caregiver education & training, Therapeutic activities, Equipment evaluation, education, & procurement, Gait training, Stair training, Transfer training, Home exercise program Safety Devices Type of Devices: Nurse notified, Patient at risk for falls, Gait belt, Call light within reach, Left in chair Restraints Restraints Initially in Place: No Restrictions Restrictions/Precautions Required Braces or Orthoses?: No Position Activity Restriction Other position/activity restrictions: Act as tolerated; s/p R femoral L heart cath Subjective General Chart Reviewed: Yes Patient assessed for rehabilitation services?: Yes Family / Caregiver Present: No Follows Commands: Within Functional Limits Subjective Subjective: Much encouragement for participation, pt very fatigued. On 2 lpm O2 Cognition Orientation Overall Orientation Status: Within Functional Limits Cognition Overall Cognitive Status: WFL Bed mobility Supine to Sit: Minimal assistance Scooting: Minimal assistance Bed Mobility Comments: slow to complete, remained up in recliner Transfers Sit to Stand: Contact guard assistance Stand to Sit: Contact guard assistance Comment: Able to tolerate standing well despite pt requesting to stay in bed Ambulation Surface: Level tile Device: Rolling Walker Assistance: Contact guard assistance Gait Deviations: Slow Diana Distance: 6 ft Comments: Slow gait with short steps More Ambulation?: No Stairs/Curb Stairs?: No Balance Posture: Fair Sitting - Static: Good;- Sitting - Dynamic: Fair;+ Standing - Static: Fair;+ Standing - Dynamic: Fair;- Comments: standing balanace assessed w/ RW; pt able to sit EOB CGA Pt sat EOB x 3-4 minutes with SBA, once up she was willing to get into recliner. Seated marches, LAQ, ankle pumps x 10-15 reps, much encouragement. Goals Short Term Goals Time Frame for Short Term Goals: 14 Short Term Goal 1: Pt to perform bed mobility independently Short Term Goal 2: Pt to perform functional transfers independently Short Term Goal 3: Ambulate 150ft w/ RW independently Short Term Goal 4: Tolerate 30 minutes of therapy to demo increased endurance Patient Goals Patient Goals : To go home Education Patient Education Education Given To: Patient Education Provided: Role of Therapy;Plan of Care Education Method: Verbal Barriers to Learning: None Education Outcome: Verbalized understanding;Continued education needed Therapy Time Individual Concurrent Group Co-treatment Time In 934 Time Out 1000 Minutes 25 Sasha Maldonado PT Physical Therapy Facility/Department: [address] STEPD[place] Daily Treatment Note NAME: Cuca Goodwin : 1945 Date of Service: 12/09/2022 Discharge Recommendations: Patient would benefit from continued therapy after discharge Patient Diagnosis(es): There were no encounter diagnoses. Assessment Activity Tolerance: Patient limited by pain Pt amb 6'forward /reverse x 2 each with RW && CGA of 1. Pt mobility limited by LLE pain. Pt sit <-> stand from EOB CGA & RW. Pt could benefit from macario sitting in bedside chair for meals as pt defer transfer to chair this PT visit. Pt could benefit form cont therapies to improve her dynamic functional mobility. Plan Physical Therapy Plan Current Treatment Recommendations: Strengthening;ROM;Balance training;Endurance training;Safety education & training;Patient/Caregiver education & training;Therapeutic activities;Equipment evaluation, education, & procurement;Gait training;Stair training;Transfer training;Home exercise program Restrictions Restrictions/Precautions Required Braces or Orthoses?: No Position Activity Restriction Other position/activity restrictions: Act as tolerated; s/p R femoral L heart cath Subjective Subjective Subjective: RN & pt agreeable to PT. Upon arrival pt in bed in supine Pain: c/o 02/22 LBP Objective Bed Mobility Training Bed Mobility Training: Yes Overall Level of Assistance: Stand-by assistance Supine to Sit: Stand-by assistance (HOB elevated ~45 degrees) Sit to Supine: Stand-by assistance (HOB flat) Scooting: Maximum assistance (to scoot up in bed while in supine) Roll L & R: CGA of 1, macario multiple reps for brief change Balance Sitting: Without support (EOB sitting 5 minutes static sitting, 5 minutes dynamic sitting no UE with seated balance & no feet supported during static/dynamic sitting balance) Standing: With support (use of RW with static standing & SBA of 1) Transfer Training Transfer Training: Yes Sit to Stand: Contact-guard assistance (RW) Stand to Sit: Contact-guard assistance (RW) Bed to Chair: (pt defer as she requested to return to bed) Gait Training Gait Training: Yes Gait Overall Level of Assistance: Contact-guard assistance;Adaptive equipment (RW) Base of Support: Widened Step Length: Right shortened Swing Pattern: Right asymmetrical Stance: Left increased Gait Abnormalities: Antalgic, pt moans & groans a lot during amb. Pt amb distance limited by RLE pain during wt bearing. Distance (ft): (6' forward/revers x2) PT Exercises Exercise Treatment: bilat LE AROM 10 reps: hip abd/add, heel slide, SLR, quad set, hamstring set while in supine & EOB. pt macario bilat UE AROM 10 reps: shoulder horizontal abd/add, shoulder abd/add, elbow flex/ext, forearm supination/pronation while seated EOB Safety Devices Type of Devices: Nurse notified;Left in bed;Patient at risk for falls;Gait belt;Call light within reach;Bed alarm in place Goals Short Term Goals Time Frame for Short Term Goals: 14 Short Term Goal 1: Pt to perform bed mobility independently Short Term Goal 2: Pt to perform functional transfers independently Short Term Goal 3: Ambulate 150ft w/ RW independently Short Term Goal 4: Tolerate 30 minutes of therapy to demo increased endurance Patient Goals Patient Goals : To go home Education Patient Education Education Provided: Role of Therapy;Plan of Care Education Method: Verbal Education Outcome: Verbalized understanding;Continued education needed Therapy Time Individual Concurrent Group Co-treatment Time In Time Out Minutes [facility]AS PTA Images from the original note were not included. [place] [employer] Associate Progress Note Date: 12/09/2022 Patient name: Cuca Goodwin Date of admission: 12/07/2022 5:55 PM Date of : 1945 PCP: Caden Sanchez Reason for Admission: S/P angioplasty with stent [Z95.820] Subjective: Clinical Changes /Abnormalities: Seen & examined in room, laying in bed. Denies any CP or SOB. States she has been up and walking and has SOB with exertion. Denies any new back pain, states she has chronic lower back pain that is unchanged. States right groin site tender but not painful. Dr. Velasquez assessed patient artery site. Labs, vitals, & tele reviewed. Review of Systems Medications: Scheduled Meds: sodium chloride flush 5-40 mL IntraVENous 2 times per day aspirin 81 mg Oral Daily atorvastatin 80 mg Oral Nightly clopidogrel 75 mg Oral Daily sertraline 100 mg Oral Daily insulin glargine 20 Units SubCUTAneous Nightly Continuous Infusions: sodium chloride sodium chloride sodium chloride 75 mL/hr at 12/09/22 0638 sodium chloride sodium chloride CBC: Recent Labs 12/08/22 0251 12/08/22 0432 12/08/22 1411 12/08/22 1802 12/09/22 0741 WBC 9.2 -- -- -- -- HGB 6.6* < > 7.7* 7.4* 7.1* PLT 250 -- -- -- -- < > = values in this interval not displayed. BMP: Recent Labs 12/08/22 0251 12/08/22 1258 12/09/22 0741 NA 142 139 137 K 4.7 4.4 4.1 CL 110* 106 106 CO2 24 21 BUN 19 CREATININE 1.43* 1.33* 1.33* GLUCOSE 124* 160* 102* Hepatic:No results for input(s): AST, ALT, ALB, BILITOT, ALKPHOS in the last 72 hours. Troponin: No results for input(s): TROPHS in the last 72 hours. BNP: No results for input(s): BNP in the last 72 hours. Lipids: No results for input(s): CHOL, HDL in the last 72 hours. Invalid input(s): LDLCALCU INR: No results for input(s): INR in the last 72 hours. Objective: Vitals: BP 112/66 Pulse 78 Temp 98.6 F (37 C) (Oral) Resp 14 Ht 5' 5 (1.651 m) Wt 208 lb (94.3 kg) SpO2 95% BMI 34.61 kg/m General appearance: alert and cooperative with exam HEENT: Head: Normocephalic, no lesions, without obvious abnormality. Neck:no JVD, trachea midline, no adenopathy Lungs: Clear to auscultation, dim throughout. No distress Heart: Regular rate and rhythm, s1/s2 auscultated, + systolic murmurs, SR Right femoral site swollen but soft. Tender to touch. Ecchymosis noted with small hematoma (semi-soft). Distall pulse per doppler. Foot warm and good cap refill Abdomen: soft, non-tender, bowel sounds active, obese Extremities: no edema Neurologic: not done ECHO 09/2022: Summary Normal LV size, normal wall motion. Mild to moderately increased LV wall thickness Normal LV systolic function . EF > 55% Normal RV size and function Moderate to severe PHTN, RVSP 64 mmHg LA appears mildly dilated AV appears calcified, as per doppler study severe mean gradient 43 mmHg, trivial AR No significant pericardial effusion IVC appears dilated, impaired respiratory variation MAC, mild MR If clinically indicated BULMARO is recommended Cardiac Angiography: 09/28/2022 Summary Increased right heart pressure with PAP 54/20 and PCWP > 25 mm Hg Single vessel severe CAD (LAD) Severe aortic stenosis with mean gradient 45 mm Hg and valve area 0.6 cm2 Recommendations CV surgery for evaluation If not candidate for SAVR and single vessel CABG will consider PTCA -CÉSAR of the LAD and then TAVR Angiographic Findings Cardiac Arteries and Lesion Findings LMCA: Normal 0% stenosis. LAD: Mid area 80% stenosis Distal area 75% stenosis D1 and D2 ostial 80% stenosis LCx: Mild irregularities 10-20%. RCA: Mild irregularities 20-30%. Coronary Tree Cardiac Cath 12/07/22 Findings: LAD: Lesion on Dist LAD: Proximal subsection. 80% stenosis 8 mm length reduced to 0%. Pre procedure ALBERTO II flow was noted. Post Procedure ALBERTO III flow was present. Good runoff was present.The lesion was diagnosed as High Risk (C). Devices used Luge Wire 182 cm. Number of passes: 1. Euphora Balloon 2.5mm x 12mm. 2 inflation(s) to a max pressure of: 10 graciela. Resolute Ric 2.5 x 12 CÉSAR. 1 inflation(s) to a max pressure of: 12 graciela. Lesion on Mid LAD: Proximal subsection. 85% stenosis 8 mm length reduced to 0%. Pre procedure ALBERTO II flow was noted. Post Procedure ALBERTO III flow was present. Good runoff was present.The lesion was diagnosed as High Risk (C). Devices used Euphora Balloon 2.5mm x 12mm. 1 inflation(s) to a max pressure of: 12 graciela. Resolute Guymon 3.0 x 12 CÉSAR. 1 inflation(s) to a max pressure of: 12 graciela. RCA: Lesion on Dist RCA: Distal subsection. 80% stenosis 5 mm length reduced to 0%. Pre procedure ALBERTO III flow was noted. Post Procedure ALBERTO III flow was present. Good runoff was present. The lesion was diagnosed as Moderate Risk (B). Devices used Luge Wire 182 cm. Number of passes: 1. Resolute Ric 2.5 x 12 CÉSAR. 1 inflation(s) to a max pressure of: 8 graciela. Dominance : Right Estimated Blood Loss: 10 mL Procedure Summary Successful PTCA -CÉSAR Mid and distal LAD SUccessful PTCA - CÉSAR distal RCA Recommendations Post stent protocol Proceed with TAVR plan Assessment / Acute Cardiac Problems: CAD/MVD not surgical candidate s/p PTCA/CÉSAR LAD & RCA as above Severe Htn Hlp ABLA Right groin hematoma - negative for pseudoaneurysm DM2 Chronic diastolic CHF Patient Active Problem List: Community acquired bacterial pneumonia NSTEMI (non-ST elevated myocardial infarction) (HCC) Severe aortic valve stenosis S/P angioplasty with stent Plan of Treatment: Stable. Right femoral site hematoma improving. Scan negative for pseudo. Will increase activity today and monitor. Continue PO ASA, statin, Plavix. Continue to hold home BB, Noravsc, & HCTZ given hypotension from ABLA HGB this AM down to 7.[address] Trejo. Will plan to transfuse another unit PRBCs and repeat Hgb. F/U in AM with possible discharge if stable. Plans for TAVR work-up as OP [place] [employer] [facility]. [phone] Physical Therapy Facility/Department: [address] [facility] Initial Assessment Name: Cuca Goodwin : 1945 Date of Service: 12/08/2022 The patient is a 77 y.o. female who is admitted to the hospital for PCI for MVCAD. The patient has MVCAD and severe aortic stenosis was referred to CTS, however, was not deemed appropriate and was referred for TAVR and PCI. Discharge Recommendations: Patient would benefit from continued therapy after discharge PT Equipment Recommendations Equipment Needed: No (pt reports owning a RW) Patient Diagnosis(es): There were no encounter diagnoses. Past Medical History: has a past medical history of Abnormal stress ECG, Aortic stenosis, Diabetes mellitus (HCC), Hyperlipidemia, and Renal insufficiency. Past Surgical History: has a past surgical history that includes Tonsillectomy; Cataract removal with implant (Bilateral); section; Coronary angioplasty with stent (11/24/2022); and Coronary angioplasty with stent (12/07/2022). Assessment Body Structures, Functions, Activity Limitations Requiring Skilled Therapeutic Intervention: Decreased functional mobility ;Decreased strength;Increased pain;Decreased posture;Decreased ROM;Decreased endurance;Decreased balance Assessment: Pt ambulated 8ft RW CGA, ambulation distance limited due to RLE with weightbearing. Pt will require 24hr support upon discharge. Recommending continued skilled physical therapy to continue to progress gait training and endurance deficits to maximize independence upon discharge. Therapy Prognosis: Good Decision Making: Low Complexity Requires PT Follow-Up: Yes Activity Tolerance Activity Tolerance: Patient limited by pain Plan Physcial Therapy Plan General Plan: (5-6x/week) Current Treatment Recommendations: Strengthening, ROM, Balance training, Endurance training, Safety education & training, Patient/Caregiver education & training, Therapeutic activities, Equipment evaluation, education, & procurement, Gait training, Stair training, Transfer training, Home exercise program Safety Devices Type of Devices: Nurse notified, Left in bed, Patient at risk for falls, Gait belt, Call light within reach, Bed alarm in place Restraints Restraints Initially in Place: No Restrictions Restrictions/Precautions Required Braces or Orthoses?: No Position Activity Restriction Other position/activity restrictions: Act as tolerated; s/p R femoral L heart cath Subjective General Patient assessed for rehabilitation services?: Yes Response To Previous Treatment: Not applicable Family / Caregiver Present: No Follows Commands: Within Functional Limits General Comment Comments: pt reporting 6/10 R groin pain with functional mobility. RN notified and pt repositioned in bed for comfort upon account underwriter's exit. Subjective Subjective: RN and pt in agreement for PT eval. Pt supine in bed upon PT arrival, pt on 2L NC, very pleasant and cooperative throughout session Social/Functional History Social/Functional History Lives With: Daughter Type of Home: House Home Layout: One level Home Access: Stairs to enter without rails Entrance Stairs - Number of Steps: 1 Bathroom Shower/Tub: Tub/Shower unit Bathroom Equipment: Shower chair, Grab bars in shower, Grab bars around toilet Home Equipment: Rollator Receives Help From: Family ADL Assistance: Needs assistance (Pt reports independently performing dressing tasks, requiring assistance for transfers in/out of shower) Toileting: Independent Homemaking Assistance: Needs assistance Homemaking Responsibilities: No (Daughter performs cooking, cleaning and laundry tasks) Ambulation Assistance: Independent (Pt independently ambulates with rollator at baseline) Transfer Assistance: Independent Active Cellular Equipment Installer: No Mode of Transportation: Friends, Cab 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 Vision/Hearing Vision Vision: Impaired Vision Exceptions: Wears glasses at all times Hearing Hearing: Within functional limits Cognition Orientation Overall Orientation Status: Within Functional Limits Cognition Overall Cognitive Status: WFL Objective Gross Assessment Sensation: Intact Joint Mobility ROM RLE: Hip flexion to 90 degrees; Knee and ankle WFL ROM LLE: WFL ROM RUE: WFL ROM LUE: WFL Strength RLE Strength RLE: WFL Strength LLE Strength LLE: WFL Strength RUE Strength RUE: WFL Strength LUE Strength LUE: WFL Bed mobility Supine to Sit: Minimal assistance (Assist provided for trunk progression) Sit to Supine: Minimal assistance (Assist provided for bilateral progression) Transfers Sit to Stand: Contact guard assistance Stand to Sit: Contact guard assistance Comment: STS performed x2; verbal cueing required for proper hand placement with good return demo Ambulation Surface: Level tile Device: Rolling Walker Assistance: Contact guard assistance Quality of Gait: Decreased RLE step length; decreased stance time RLE Gait Deviations: Slow Diana Distance: 8ft Comments: Pt demonstrates significant increased of RLE pain with ambulation, limiting ambulation distance at this time. More Ambulation?: No Stairs/Curb Stairs?: No Balance Posture: Fair Sitting - Static: Good;- Sitting - Dynamic: Fair;+ Standing - Static: Fair;+ Standing - Dynamic: Fair;- Comments: standing balanace assessed w/ RW; pt able to sit EOB CGA AM-PAC Score AM-PAC Inpatient Mobility Raw Score : 21 (12/08/221455) AM-PAC Inpatient T-Scale Score : 50.25 (12/08/221455) Mobility Inpatient CMS 0-100% Score: 28.97 (12/08/221455) Mobility Inpatient CMS G-Code Modifier : CJ (12/08/221455) Goals Short Term Goals Time Frame for Short Term Goals: 14 Short Term Goal 1: Pt to perform bed mobility independently Short Term Goal 2: Pt to perform functional transfers independently Short Term Goal 3: Ambulate 150ft w/ RW independently Short Term Goal 4: Tolerate 30 minutes of therapy to demo increased endurance Patient Goals Patient Goals : To go home Education Patient Education Education Given To: Patient Education Provided: Role of Therapy;Plan of Care Education Method: Demonstration Barriers to Learning: None Education Outcome: Verbalized understanding;Demonstrated understanding Therapy Time Individual Concurrent Group Co-treatment Time In 1409 Time Out 1433 Minutes 24 Timed Code Treatment Minutes: 23 Minutes Princess Puente PT Images from the original note were not included. [place] [facility] Progress Note Date: 12/08/2022 Patient name: Cuca Goodwin Date of admission: 12/07/2022 5:55 PM Date of : 1945 PCP: Caden Sanchez Reason for Admission: S/P angioplasty with stent [Z95.820] Subjective: Clinical Changes /Abnormalities:Seen & examined alone in room after discussion with RN. Denies any CP or SOB. States she has not been out of bed. Denies any new back pain, states she has chronic lower back pain that is unchanged. States right groin site tender but not painful. Labs, vitals, & tele reviewed. Review of Systems Medications: Scheduled Meds: sodium chloride flush 5-40 mL IntraVENous 2 times per day aspirin 81 mg Oral Daily atorvastatin 80 mg Oral Nightly clopidogrel 75 mg Oral Daily sertraline 100 mg Oral Daily insulin glargine 20 Units SubCUTAneous Nightly Continuous Infusions: sodium chloride sodium chloride 75 mL/hr at 12/08/22 0621 sodium chloride sodium chloride CBC: Recent Labs 12/08/22 0251 12/08/22 0432 12/08/22 1112 WBC 9.2 -- -- HGB 6.6* 6.5* 7.6* PLT 250 -- -- BMP: Recent Labs 12/07/22 1140 12/08/22 0251 NA -- 142 K -- 4.7 CL -- 110* CO2 -- 25 BUN -- 23 CREATININE 1.35* 1.43* GLUCOSE -- 124* Hepatic:No results for input(s): AST, ALT, ALB, BILITOT, ALKPHOS in the last 72 hours. Troponin: No results for input(s): TROPHS in the last 72 hours. BNP: No results for input(s): BNP in the last 72 hours. Lipids: No results for input(s): CHOL, HDL in the last 72 hours. Invalid input(s): LDLCALCU INR: No results for input(s): INR in the last 72 hours. Objective: Vitals: BP (!) 102/35 Pulse 75 Temp 98.1 F (36.7 C) (Oral) Resp 24 Ht 5' 5 (1.651 m) Wt 208 lb (94.3 kg) SpO2 93% BMI 34.61 kg/m General appearance: alert and cooperative with exam HEENT: Head: Normocephalic, no lesions, without obvious abnormality. Neck:no JVD, trachea midline, no adenopathy Lungs: Clear to auscultation, dim throughout. No distress Heart: Regular rate and rhythm, s1/s2 auscultated, + systolic murmurs, SR Right femoral site swollen but soft. Tender to touch. Ecchymosis noted with small hematoma (semi-soft). Distall pulse per doppler. Foot warm and good cap refill Abdomen: soft, non-tender, bowel sounds active, obese Extremities: no edema Neurologic: not done ECHO 09/2022: Summary Normal LV size, normal wall motion. Mild to moderately increased LV wall thickness Normal LV systolic function . EF > 55% Normal RV size and function Moderate to severe PHTN, RVSP 64 mmHg LA appears mildly dilated AV appears calcified, as per doppler study severe mean gradient 43 mmHg, trivial AR No significant pericardial effusion IVC appears dilated, impaired respiratory variation MAC, mild MR If clinically indicated BULMARO is recommended Cardiac Angiography: 09/28/2022 Summary Increased right heart pressure with PAP 54/20 and PCWP > 25 mm Hg Single vessel severe CAD (LAD) Severe aortic stenosis with mean gradient 45 mm Hg and valve area 0.6 cm2 Recommendations CV surgery for evaluation If not candidate for SAVR and single vessel CABG will consider PTCA -CÉSAR of the LAD and then TAVR Angiographic Findings Cardiac Arteries and Lesion Findings LMCA: Normal 0% stenosis. LAD: Mid area 80% stenosis Distal area 75% stenosis D1 and D2 ostial 80% stenosis LCx: Mild irregularities 10-20%. RCA: Mild irregularities 20-30%. Coronary Tree Cardiac Cath 12/07/22 Findings: LAD: Lesion on Dist LAD: Proximal subsection. 80% stenosis 8 mm length reduced to 0%. Pre procedure ALBERTO II flow was noted. Post Procedure ALBERTO III flow was present. Good runoff was present.The lesion was diagnosed as High Risk (C). Devices used Luge Wire 182 cm. Number of passes: 1. Euphora Balloon 2.5mm x 12mm. 2 inflation(s) to a max pressure of: 10 graciela. Resolute Ric 2.5 x 12 CÉSAR. 1 inflation(s) to a max pressure of: 12 graciela. Lesion on Mid LAD: Proximal subsection. 85% stenosis 8 mm length reduced to 0%. Pre procedure ALBERTO II flow was noted. Post Procedure ALBERTO III flow was present. Good runoff was present.The lesion was diagnosed as High Risk (C). Devices used Euphora Balloon 2.5mm x 12mm. 1 inflation(s) to a max pressure of: 12 graciela. Resolute [place] 3.0 x 12 CÉSAR. 1 inflation(s) to a max pressure of: 12 graciela. RCA: Lesion on Dist RCA: Distal subsection. 80% stenosis 5 mm length reduced to 0%. Pre procedure ALBERTO III flow was noted. Post Procedure ALBERTO III flow was present. Good runoff was present. The lesion was diagnosed as Moderate Risk (B). Devices used Luge Wire 182 cm. Number of passes: 1. Resolute Rci 2.5 x 12 CÉSAR. 1 inflation(s) to a max pressure of: 8 graciela. Dominance : Right Estimated Blood Loss: 10 mL Procedure Summary Successful PTCA -CÉSAR Mid and distal LAD SUccessful PTCA - CÉSAR distal RCA Recommendations Post stent protocol Proceed with TAVR plan Assessment / Acute Cardiac Problems: CAD/MVD not surgical candidate s/p PTCA/CÉSAR LAD & RCA as above Severe Htn Hlp ABLA Right groin hematoma - negative for pseudoaneurysm DM2 Chronic diastolic CHF Patient Active Problem List: Community acquired bacterial pneumonia NSTEMI (non-ST elevated myocardial infarction) (HCC) Severe aortic valve stenosis S/P angioplasty with stent Plan of Treatment: Stable. Right femoral site hematoma improving. Scan negative for pseudo. Will increase activity today and monitor. Continue PO ASA, statin, Plavix. Continue to hold home BB, Noravsc, & HCTZ given hypotension from ABLA HGB this AM down to 6.5 s/p PRBC. Recheck 7.6 and repeat again pending. Will plan to transfuse another unit if <8 F/U in AM with possible discharge if stable Plans for TAVR work-up as OP [place] [employer] [facility]. [phone] Supervisor Special Education discussed the next step in the TAVR process, an appointment with the cardiothoracic surgeon, with patient and daughter at bedside in [facility]. Office number given to daughter, she will call to schedule in the next couple days. Supervisor Special Education's contact number also given. Patient declined AM glucose check. She has Dexcom meter in place showing glucose of 99. Pt educated on hospital policy of checking glucose with our glucometer due to Dexcom not being FDA approved. Pt verbalized understanding. Will try again at lunch time. Vascular scan complete. Manual pressure being held. Manual pressure held for 30 min. Groin soft but ecchymotic. Pedal pulses per doppler. Blood admin started at 16:50. No adverse reaction noted. Report called to Joelle PIERRE. Patient transported to room 501 via stretcher. Right groin assessed by Joelle and . Groin remains soft. Dr Jin at bedside and aware of blood pressures. Iv rate to 999. [place] position as right groin scanned. Oxygen applied. Right groin swollen but much softer. Hand off to Keely PIERRE Dry heaves as manual pressure held to right groin and lab in for stat draw. Vascular at bedside. Dr Martinez out to view groin as large firm hematoma noted and marked. Manual pressure held Manual pressure held per account underwriter for [address] Martinez at bedside to assess. Order for POC H & H received. Hemaglobin 6.9. Stat lab draw ordered. Dr Martinez at bedside to assess. Order for LLE vascualr scan received. 1 Patient admitted, consent signed and questions answered. Patient ready for procedure. Call light to reach with side rails up 2 of 2. Bilateral groin areas clipped with account underwriter and Maggi estrada present. Daughter Ismael at bedside with patient. History and physical needs updated. Received post cardiac cath procedure to [facility] room 10. Assessment obtained. Restrictions reviewed with patient. Post procedure pathway initiated. Right site noted to have small hematoma, manual pressure held by [place]. Band aid dry and intact. Family at side. Patient without complaints. Head of bed flat with right leg straight. documented in this encounter [employer] [facility] [employer] Work Phone: 12-07-2022 Note [facility] Vascular Lower Extremities Arterial Duplex Procedure Patient Name CHRISTA Date of Study 12/07/2022 CUCA Date of 1945 Gender Female Age 77 year(s) Race Room Number 0501 Height: 65 inch, 165.1 cm Corporate ID # [id number] Weight: 208 pounds, 94.3 kg Patient BSA: 2.01 m^2 BMI: 34.61 kg/m^2 MR # [id number] Aeronautical Test Engineer Whit Gan, T Interpreting Physician Darnell Monique Referring Referring Physician SEBASTIAN MARTINEZ MD Nurse Practitioner Procedure Type of Study: Extremities Arteries: Lower Extremities Arterial Duplex, Arterial Scan Lower Right. Indications for Study:Groin pain s/p cardiac cath and Hematoma s/p cardiac cath. Patient Status:Out Patient. Technical Quality:Adequate visualization. Conclusions Summary No evidence of pseudoaneurysm in the right groin. Signature Findings: Right Impression: No evidence of pseudoaneurysm in the right groin. Enlarged lymph node in the groin area. Risk Factors - The patient's risk factor(s) include: insulin-treated diabetes mellitus, dyslipidemia, obesity, lack of physical activity and treated arterial hypertension. - The patient's last creatinine was 1.4 mg/dl. Allergies - Allergy:*No Known Allergies(Miscellaneous). Velocities are measured in cm/s ; Diameters are measured in cm LE Duplex Measurements +---------++-----+-----+------+---- +------++---+-----+------+----+---- -----+ ! !!Right! !Left ! ! !! ! ! ! ! ! +---------++-----+-----+------+---- +------++---+-----+------+----+---- -----+ !Location !!PSV !Ratio!Wave !AP !Trans !!PSV!Ratio!Wave !AP !Trans ! ! !! ! !Desc. !Diam!Diam !! ! !Desc. !Diam!Diam ! +---------++-----+-----+------+---- +------++---+-----+------+----+---- -----+ !Dist EIA !!185 ! ! ! ! !! ! ! ! ! ! +---------++-----+-----+------+---- +------++---+-----+------+----+---- -----+ !Common !!162 !0.88 ! ! ! !! ! ! ! ! ! !Femoral !! ! ! ! ! !! ! ! ! ! ! +---------++-----+-----+------+---- +------++---+-----+------+----+---- -----+ !Prox SFA !!174 ! ! ! ! !! ! ! ! ! ! +---------++-----+-----+------+---- +------++---+-----+------+----+---- -----+ [facility] 11-24-2022 History of Present illness Narrative Patient admitted, consent signed and questions answered. Patient ready for procedure. Call light to reach with side rails up 2 of 2. Bilateral groin areas clipped with account underwriter and Joes PIERRE present. Daughter Ileana at bedside with patient. History and physical needs updated. documented in this encounter [employer] Phone: 03-20-2021 Note PROCEDURE: XR FOOT L T MIN 3 VIEWS COMPARISON: None. HISTORY: Pain FINDINGS: BONES:No acute fracture or dislocation. Persistent flexion of the toes limits their evaluation. Mild to moderate degenerative changes with joint space narrowing and marginal osteophyte formation, most significant at the first metatarsophalangeal joint where [id number] endplate is observed SOFT TISSUES:Negative. No visible soft tissue swelling. EFFUSION:None visible. OTHER: Negative. IMPRESSION: Moderate degenerative changes, no acute fracture Electronically authenticated by: GIOVANNY NICOLE Date: 2021-03-20 08:29 [facility] Evaluation note Diagnosis Severe aortic valve stenosis- Primary Aortic valve disorders documented in this encounter [employer] Phone: evaluation note* Diagnosis RAIN (acute kidney injury) (HCC)- Primary Acute kidney failure, unspecified documented in this encounter [employer] Phone: [email or web address] note* Diagnosis Severe aortic valve stenosis- Primary Aortic valve disorders Type 2 diabetes mellitus with diabetic neuropathy, with long-term current use of insulin (HCC) Tremors of nervous system Abnormal involuntary movements Family history of coronary arteriosclerosis Family history of ischemic heart disease CHELSEA (obstructive sleep apnea) nonadherent with cpap Obstructive sleep apnea (adult) (pediatric) Stage 3a chronic kidney disease (HCC) Coronary artery disease involving [place] coronary artery of [place] tribe heart without angina pectoris documented in this encounter [employer] Phone: [email or web address] note* Diagnosis Aortic valve stenosis, etiology of cardiac valve disease unspecified documented in this encounter [employer] Phone: [email or web address] note* Diagnosis Aortic valve stenosis, etiology of cardiac valve disease unspecified documented in this encounter [employer] Phone: Hospital Discharge instructions* Attachments The following attachments cannot be sent through Care Everywhere. 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 ACP-Advance Directive ACP-Power of Christmas Tree Contractor Latest Code Status on File Code Status Date Activated Date Inactivated Comments Full Code 10/15/2014 1:49 PM 10/15/2014 8:39 PM Full Code 10/15/2014 7:52 AM 10/15/2014 1:49 PM Full Code 10/02/2014 10:01 AM 10/02/2014 3:29 PM Latest Code Status on File Code Status Date Activated Date Inactivated Comments Full Code 11/24/2022 11:19 AM Full Code 09/28/2022 4:15 AM 09/30/2022 6:37 PM Full Code 10/15/2014 1:49 PM 10/15/2014 8:39 PM Full Code 10/15/2014 7:52 AM 10/15/2014 1:49 PM Full Code 10/02/2014 10:01 AM 10/02/2014 3:29 PM Latest Code Status on File Code Status Date Activated Date Inactivated Comments Full Code 12/07/2022 11:24 AM Full Code 11/24/2022 11:19 AM 11/25/2022 2:46 AM Documents on File Type Date Recorded Patient [employer] Helper Expl anation [employer] Directive 12/14/2022 2:27 PM Latest Code Status on File Code Status Date Activated Date Inactivated Comments Full Code 12/07/2022 11:24 AM 12/11/2022 1:10 PM Full Code 11/24/2022 11:19 AM 11/25/2022 2:46 AM Full Code 09/28/2022 4:15 AM 09/30/2022 6:37 PM Full Code 10/15/2014 1:49 PM 10/15/2014 8:39 PM Documents on File Type Date Recorded Patient [employer] Helper Al nails [employer] Directive 12/14/2022 2:27 PM Latest Code Status on File Code Status Date Activated Date Inactivated Comments Full Code 12/07/2022 11:24 AM 12/11/2022 1:10 PM Summary Purpose Family History No Family History Records FoundNo Family History Records FoundNo Family History Records FoundNo Family History Records FoundNo Family History Records Found Reason for Referral Specialty Diagnoses / Procedures Referred By Contac t Referred To Contact Radiology Diagnoses Aortic valve stenosis, etiology of cardiac valve disease unspecified Procedures CT CARDIAC W C STC MORP CARD ONLY Namrata Blair, BANKRUPTCY LAW SPECIALIST - RADAR TESTER [address] [place] [address] Referral ID Status Reason Start Date Expiration Date Visits Re quested Visits Authorized [id number] Closed 01/11/2023 04/10/2023 1 1 Specialty Diagnoses / Procedures Referred By Contac t Referred To Contact Radiology Diagnoses Aortic valve stenosis, etiology of cardiac valve disease unspecified Procedures CTA CHEST ABDOMEN PELVIS W CONTRAST Namrata Blair, BANKRUPTCY LAW SPECIALIST - RADAR TESTER [address] [place] [address] Referral ID Status Reason Start Date Expiration Date Visits Re quested Visits Authorized [id number] Closed 01/11/2023 04/10/2023 1 1 Additional Source Comments INFORMATION SOURCE (unrecogn ized section and content) DATE CREATED AUTHOR 03/27/2021 [facility] DATE CREATED AUTHOR AUTHOR'S ORGANIZ ATION 04/09/2021 [facility] DATE CREATED AUTHOR AUTHOR'S ORGANIZ ATION 04/06/2022 [facility] DATE CREATED AUTHOR AUTHOR'S ORGANIZ ATION 01/22/2023 [facility] DATE CREATED AUTHOR AUTHOR'S ORGANIZ ATION 03/27/2023 [facility] Reason for Visit (unrecogniz ed section and content) Specialty Diagnoses / Procedures Referred By Contac t Referred To Contact [facility] [address] [place] [address] Referral ID Status Reason Start Date Expiration Date Visits Re quested Visits Authorized [id number] 1 1 Referral ID Status Reason Start Date Expiration Date Visits Re quested Visits Authorized [id number] 1 1 Specialty Diagnoses / Procedures Referred By Contac t Referred To Contact Radiology Diagnoses Aortic valve stenosis, etiology of cardiac valve disease unspecified Procedures CT CARDIAC W C STC MORP CARD ONLY Namrata Blair, BANKRUPTCY LAW SPECIALIST - RADAR TESTER [address] [place] [address] Referral ID Status Reason Start Date Expiration Date Visits Re quested Visits Authorized [id number] Closed 01/11/2023 04/10/2023 1 1 Specialty Diagnoses / Procedures Referred By Contac t Referred To Contact Radiology Diagnoses Aortic valve stenosis, etiology of cardiac valve disease unspecified Procedures CTA CHEST ABDOMEN PELVIS W CONTRAST Namrata Blair, BANKRUPTCY LAW SPECIALIST - RADAR TESTER [address] [place] [address] Referral ID Status Reason Start Date Expiration Date Visits Re quested Visits Authorized [id number] Closed 01/11/2023 04/10/2023 1 1 Care Teams (unrecognized sec tion and content) Road Crossing Guard Relationship Specialty Start Date End Date Caden Sanchez PCP - General Family Medicine 09/29/22 Road Crossing Guard Relationship Specialty Start Date End Date Caden Sanchez PCP - General Family Medicine 09/29/22 Road Crossing Guard Relationship Specialty Start Date End Date Caden Sanchez PCP - General Family Medicine 09/29/22 Road Crossing Guard Relationship Specialty Start Date End Date Caden Sanchez PCP - General Family Medicine 09/29/22 Road Crossing Guard Relationship Specialty Start Date End Date Caden Sanchez PCP - General Family Medicine 09/29/22 [address] Crossing Guard Relationship Specialty Start Date End Date Pam Ley, BANKRUPTCY LAW SPECIALIST - RADAR TESTER [address] [facility], [place] [phone] PCP - General 01/15/23 Road Crossing Guard Relationship Specialty Start Date End Date Pam Ley, BANKRUPTCY LAW SPECIALIST - RADAR TESTER [address] [facility] [place] [phone] PCP - General 01/15/23 Ordered Prescriptions (unrec ognized section and content) Prescription Sig Dispensed Refills Start Date End Da te clopidogrel (PLAVIX) 75 MG tablet Take 1 tablet by mouth daily 30 tablet 3 12/11/2022 Scheduled Active and Recently Administ ered Medications (unrecognized section and content) Medication Order 12/09/2022 12/10/2022 12/11/2022 aspirin chewable tablet 81 mg 81 mg, Oral, DAILY, First dose on Wed12/08/22 at 0900, Until Discontinued 925 (Given - Provider: Jacqueline Medina, GABBY) 08 (Given - Provider: Jacqueline Medina, GABBY) 0846 (Given - Provider: Stefanie Lu, GABBY) atorvastatin (LIPITOR) tablet 80 mg 80 mg, Oral, NIGHTLY, First dose on Wed12/07/22 at 2100, Until Discontinued 2024 (Given - Provider: Tamika Villavicencio, GABBY) 1956 (Given - Provider: Libia Lyons RN) 2099 (Due) clopidogrel (PLAVIX) tablet 75 mg 75 mg, Oral, DAILY, First dose on Wed12/08/22 at 0900, Until Discontinued 925 (Given - Provider: Jacqueline Medina, GABBY) 08 (Given - Provider: Jacqueline Medina, GABBY) 0846 (Given - Provider: Stefanie Lu RN) insulin glargine (LANTUS) injection vial 10 Units 10 Units, SubCUTAneous, NIGHTLY, First dose (after last modification) on Wed12/11/22 at 2100, Until Discontinued, Substituted for Levemir 2099 (Due) insulin glargine (LANTUS) injection vial 20 Units (CANCELED) 20 Units, SubCUTAneous, NIGHTLY, First dose on Wed12/07/22 at 2100, Until Discontinued, Substituted for Levemir 2124 (Given - Provider: Tamika Villavicencio RN) polyethylene glycol (GLYCOLAX) packet 17 g (CANCELED) 17 g, Oral, DAILY, First dose on Wed12/09/22 at 2100, Until Discontinued, Stir and dissolve one packet of powder (17 g) in any 4 to 8 ounces of beverage (cold, hot or room temperature) then drink 2125 (Given - Provider: Tamika Villavicencio RN) sertraline (ZOLOFT) tablet 100 mg 100 mg, Oral, DAILY, First dose on Wed12/07/22 at 1645, Until Discontinued 0926 (Given - Provider: Jacqueline Medina RN) 08 (Given - Provider: Jacqueline Medina, GABBY) 0846 (Given - Provider: Stefanie Lu, GABBY) sodium chloride flush 0.9 % injection 5-40 mL 5-40 mL, IntraVENous, EVERY 12 HOURS SCHEDULED (2 times per day), First dose on Wed12/07/22 at 2100, Until Discontinued, For Line Patency: Peripheral IV = 5 mL; Midline or Central Line = 10 mL/lumen. If following IV push medication, administer flush at same rate as the IV push. Flush volume is determined by type of infusion therapy being given. For non-viscous solutions use: Peripheral IV = 5 mL Midline or Central Line = 10 mL/lumen For viscous solutions (i.e. blood components, parenteral nutrition, contrast media, or after obtaining blood sample) use: Peripheral IV = 10 mL Midline or Central Line = 20 mL/lumen, Recovery(Cath) 0952 (Not Given - Provider: Jacqueline Medina RN - Reason: IV Fluid Infusing)2005 (Not Given - Provider: Tamika Villavicencio RN - Reason: IV Fluid Infusing) 08 (Not Given - Provider: Jacqueline Medina RN - Reason: IV Fluid Infusing)1956 (Given - Provider: Libia Lyons RN) 0847 (Given - Provider: Stefanie Lu, GABBY)2100 (Due) Continuous Medication Order 12/09/2022 12/10/2022 12/11/2022 0.9 % sodium chloride infusion (CANCELED) IntraVENous, at 75 mL/hr, CONTINUOUS, Starting on Wed12/07/22 at 1145, Pre-Procedure(Cath) 0328 (New Bag - Provider: Tamika Villavicencio RN)0329 (Paused - Provider: Tamika Villavicencio RN)0329 (Restarted - Provider: Tamika Villavicencio RN)0638 (Rate/Dose Verify - Provider: Tamika Villavicencio RN)1301 (Stopped - Provider: Tamika Villavicencio RN)1849 (New Bag - Provider: Jacqueline Medina, RN)1954 (New Bag - Provider: Tamika Villavicencio RN) 0605 (Rate/Dose Verify - Provider: Tamika Villavicencio RN) 0959 (Stopped - Provider: Stefanie Lu RN) PRN Medication Order 12/09/2022 12/10/2022 12/11/2022 0.9 % sodium chloride infusion IntraVENous, at 5-250 mL/hr, PRN, if patient receiving piggyback infusions and maintenance fluids are not ordered OR KVO fluids to protect IV site / prevent frequent line interruptions/ long duration, Starting on Wed12/07/22 at 1618, For piggyback infusion, administer at same rate as piggyback for a total of 25 mL. Enter 25 mL into dose field and piggyback rate into rate field of order. If piggyback is infusing at a rate less than 100 mL/hr, enter 25 mL into dose field and 100 mL/hr into rate field of order. For KVO fluids, enter rate of 20 mL/hr or less into rate field of order., Recovery(Cath) 0.9 % sodium chloride infusion IntraVENous, at 240 mL/hr, Administer over 10 Minutes, PRN, blood administration, Starting on Wed12/07/22 at 1507, For 1 dose, For use in priming line prior to transfusion (prime via gravity) and flush line post transfusion ONLY. Discontinue once line has been cleared of remaining blood product. 0.9 % sodium chloride infusion IntraVENous, at 240 mL/hr, Administer over 10 Minutes, PRN, blood administration, Starting on Wed12/08/22 at 0614, For 1 dose, For use in priming line prior to transfusion (prime via gravity) and flush line post transfusion ONLY. Discontinue once line has been cleared of remaining blood product. 0.9 % sodium chloride infusion IntraVENous, at 240 mL/hr, Administer over 10 Minutes, PRN, blood administration, Starting on Wed12/09/22 at 1110, For 1 dose, For use in priming line prior to transfusion (prime via gravity) and flush line post transfusion ONLY. Discontinue once line has been cleared of remaining blood product. acetaminophen (TYLENOL) tablet 650 mg 650 mg, Oral, EVERY 4 HOURS PRN, Starting on Wed12/07/22 at 1618, Until Discontinued, Pain Mild (1-3), Fever, Fever >100.5 F (38 C), Maximum dose of acetaminophen is 4000 mg from all sources in 24 hours., Recovery(Cath) 0947 (Given - Provider: Jacqueline Medina, RN) bisacodyl (DULCOLAX) EC tablet 10 mg 10 mg, Oral, DAILY PRN, Starting on Wed12/09/22 at 2143, Until Discontinued, Constipation, Do not crush or break. 2300 (Given - Provider: Tamika Villavicencio RN) dextrose 10 % infusion IntraVENous, at 100 mL/hr, CONTINUOUS PRN, if blood glucose remains LESS THAN 70 mg/dL after 2 dextrose 10% intravenous boluses or administration of glucagon, Starting on Wed12/10/22 at 0823, If blood glucose fails to stabilize after 2 dextrose 10% intravenous boluses or glucagon administration, start dextrose 10% infusion at 100 mL/hour and repeat blood glucose at 30 and 60 minutes. If blood glucose is GREATER THAN 70 mg/dL after 60 minutes, discontinue dextrose 10% infusion. dextrose bolus 10% 125 mL(Linked Group 1) 125 mL, IntraVENous, at 937.5 mL/hr, Administer over 8 Minutes, PRN, Other, Blood glucose 40 - 69 mg/dL and patient NOT ALERT or NPO, Starting on Wed12/10/22 at 0823, Repeat blood glucose in 15 minutes. If blood glucose remains LESS THAN 70 mg/dL, repeat treatment and recheck blood glucose in 15 minutes x 2. If using glycemic management system, dose as instructed per system. If blood glucose remains LESS THAN 70 mg/dL after 2 intravenous boluses start dextrose 10% at 100 mL/hour and notify provider. dextrose bolus 10% 250 mL(Linked Group 1) 250 mL, IntraVENous, at 937.5 mL/hr, Administer over 16 Minutes, PRN, Other, Blood glucose LESS THAN 40 mg/dL and patient NOT ALERT or NPO, Starting on Wed12/10/22 at 0823, Repeat blood glucose in 15 minutes. If blood glucose remains LESS THAN 70 mg/dL, repeat treatment and recheck blood glucose in 15 minutes x 2. If using glycemic management system, dose as instructed per system. If blood glucose remains LESS THAN 70 mg/dL after 2 intravenous boluses start dextrose 10% at 100 mL/hour and notify provider. glucagon (rDNA) injection 1 mg 1 mg, SubCUTAneous, PRN, Starting on Wed12/10/22 at 0823, Until Discontinued, Low blood sugar, Blood glucose LESS THAN 70 mg/dL and patient NOT ALERT or NPO and does not have IV access., After administration, attempt intravenous access and start dextrose 10% at 100 mL/hr. Repeat blood glucose in 15 minutes x 2 and notify provider. glucose chewable tablet 16 g 16 g (4 tablet), Oral, PRN, Starting on Wed12/10/22 at 0823, Until Discontinued, Low blood sugar, If blood glucose is LESS THAN 70 mg/dL and patient is alert and tolerating oral. Give 4 tablets (16g) Repeat blood glucose in 15 minutes. If blood glucose is LESS THAN 70 mg/dL, repeat treatment and recheck blood glucose in 15 minutes x 2. If blood glucose remains LESS THAN 70 mg/dL, notify provider. sodium chloride flush 0.9 % injection 5-40 mL 5-40 mL, IntraVENous, PRN, Starting on Wed12/07/22 at 1618, Until Discontinued, Line Care, After every IV line use, For Line Patency: Peripheral IV = 5 mL; Midline or Central Line = 10 mL/lumen. If following IV push medication, administer flush at same rate as the IV push. Flush volume is determined by type of infusion therapy being given. For non-viscous solutions use: Peripheral IV = 5 mL Midline or Central Line = 10 mL/lumen For viscous solutions (i.e. blood components, parenteral nutrition, contrast media, or after obtaining blood sample) use: Peripheral IV = 10 mL Midline or Central Line = 20 mL/lumen, Recovery(Cath) Linked Groups Order Group 1: dextrose bolus 10% 125 mLJump to med 125 mL, IntraVENous, at 937.5 mL/hr, Administer over 8 Minutes, PRN, Other, Blood glucose 40 - 69 mg/dL and patient NOT ALERT or NPO, Starting on Wed12/10/22 at 0823
Repeat blood glucose in 15 minutes. If blood glucose remains LESS THAN 70 mg/dL, repeat treatment and recheck blood glucose in 15 minutes x 2. If using glycemic management system, dose as instructed per system. If blood glucose remains LESS THAN 70 mg/dL after 2 intravenous boluses start dextrose 10% at 100 mL/hour and notify provider.
Or dextrose bolus 10% 250 mLJump to med 250 mL, IntraVENous, at 937.5 mL/hr, Administer over 16 Minutes, PRN, Other, Blood glucose LESS THAN 40 mg/dL and patient NOT ALERT or NPO, Starting on Kim 12/10/22 at 0823
Repeat blood glucose in 15 minutes. If blood glucose remains LESS THAN 70 mg/dL, repeat treatment and recheck blood glucose in 15 minutes x 2. If using glycemic management system, dose as instructed per system. If blood glucose remains LESS THAN 70 mg/dL after 2 intravenous boluses start dextrose 10% at 100 mL/hour and notify provider.
Continuous Medication Order 01/11/2023 01/12/2023 01/13/2023 0.9 % sodium chloride infusion IntraVENous, at 75 mL/hr, CONTINUOUS, Starting on 01/13/23 at 0730, For 9 hours, Please hydrate pt for [address] and 6 hours post imaging. Hydration to start at 0730, CT imaging planned for 1030. Fany PIERRE will be bringing pt back and for the from 3C to [facility] as needed for addt'l testing throughout the day. Pt will finish day in 3C for final hours of hydration., Pre-Procedure(Cath) 0750 (New Bag - Prov ider: CONSTANTINO SINGH)1653 (Stopped - Provider: CONSTANTINO SINGH) FOR RECORDS PERTAINING TO PATIENTS WHO ARE OR HAVE BEEN ENROLLED IN A CHEMICAL DEPENDENCY/SUBSTANCEABUSE PROGRAM, SOME INFORMATION MAY BE OMITTED. This clinical summary was aggregated from multiple sources. Caution should be exercised in using it in the provision of clinical care. This summary normalizes information from multiple sources, and as a consequence, information in this document may materially change the coding, format and clinical context of patient data. In addition, data may be omitted in some cases. CLINICAL DECISIONS SHOULD BE BASED ON THE PRIMARY CLINICAL RECORDS. [employer] provides no warranty or guarantee of the accuracy or completeness of information in this document.
== END 2023-10-05 12:45 | disposition home health service (06) | DRG 690 ==
LOC: ER 18:23 → MS 22:21
PROVIDERS: Family Medicine; Internal Medicine; Nurse Practitioner; Physician Assistant; Admitting Provider Family Medicine; Emergency Provider Emergency Medicine; PCP Nurse Practitioner; Visit Provider Family Medicine
DX: N39.0 Urinary tract infection, site not specified (principal); E87.1 Hypo-osmolality and hyponatremia; E86.0 Dehydration; E11.65 Type 2 diabetes mellitus with hyperglycemia; I12.9 Hypertensive chronic kidney disease with stage 1 through stage 4 chronic kidney disease, or unspecified chronic kidney disease; E11.22 Type 2 diabetes mellitus with diabetic chronic kidney disease; N18.30 Chronic kidney disease, stage 3 unspecified; E83.42 Hypomagnesemia; D64.9 Anemia, unspecified; C50.919 Malignant neoplasm of unspecified site of unspecified female breast; I25.10 Atherosclerotic heart disease of native coronary artery without angina pectoris; K21.9 Gastro-esophageal reflux disease without esophagitis; E78.5 Hyperlipidemia, unspecified; F32.A Depression, unspecified; Z79.02 Long term (current) use of antithrombotics/antiplatelets; Z79.4 Long term (current) use of insulin; Z79.899 Other long term (current) drug therapy; Z87.440 Personal history of urinary (tract) infections; Z95.3 Presence of xenogenic heart valve; Z79.84 Long term (current) use of oral hypoglycemic drugs
CPT/HCPCS: 36415; 70450; 71045; 80048; 80053; 81001; 82948; 83605; 83735; 84443; 84484; 85025; 85610; 87086; 93005; 96361; 96365; 96366; 96367; 97161; 97165; 97530; 99285; G0328; G0378; Q3014

== ENCOUNTER 2024-02-27 13:36 | Observation (INO) | payer MEDICARE, SELFPAY ==
[2024-02-27] VITALS (17 sets, daily range): BP systolic 123–164; BP diastolic 46–79; PULSE 68–82; TEMP 36.7–36.8; O2SAT 91–99; BMI 33.3; BMI 32.4
--- NOTE | 2024-02-27 13:39 | ECG_ITS ---
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
--- NOTE | 2024-02-27 13:40 | CT_ITS ---
The [address] [address] Patient Name: TERESA GOODWIN MRN: [id number] date: 1945 Sex: F Assigned Patient Location: ED.MAIN Current Patient Location: ER Accession/Order Number: [id number] Exam Date: 02/27/2024 13:39 Report Date: 02/27/2024 14:04 At the request of: BOLIVAR MAYEN Procedure: CT stroke head/brain wo con EXAM: CT stroke head/brain wo con HISTORY: ams . Confusion. COMPARISON: 09/30/2023. TECHNIQUE: Unenhanced transaxial to lordotic sections obtained from the vertex through the posterior fossa. FINDINGS: Stable position of ventriculostomy catheter via right frontal approach with the tip terminating at the foramen of [place]ro. Stable mild ventriculomegaly. Mild bilateral chronic microvascular ischemic change. No midline shift, mass effect or intracranial hemorrhage are identified. The mastoid air cells and visualized paranasal sinuses are clear. No evidence of calvarial fracture. CT/CT stroke head/brain wo con IMPRESSION: 1. No acute intracranial process identified. 2. Mild bilateral chronic microvascular ischemic change. 3. Stable ventriculostomy catheter position. Stable mild ventriculomegaly. Electronically authenticated by: SUZIE GOMES Date: 02/27/2024 14:04
--- OUTSIDE RECORDS SUMMARY | 2024-02-27 13:45 | XMS_ITS | CCD ---
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 Role Phone Caden Sanchez Primary Care Provider UnavailLAKESHIA Kramer Referring Unavailable CADEN SANCHEZ Primary Care Unavailable ELIZABETH TOMLINSON Referring Unavailable CADEN SANCHEZ Primary Care Unavailable PAM LEY Primary Care Unavailable ASHLEE, DR PADILLA Attending Unavailable ASHLEE, DR PADILLA Consulting Unavailable ASHLEE, DR PADILLA Admitting Unavailable COREY, DR GIOVANNY Tuttle Consulting Unavailable Vale Bowser Admitting Unavailable Vale Bowser Attending Unavailable GIOVANNY LOGAN Referring Unavailable GIOVANNY LOGAN Primary Care Unavailable Caden Sanchez Primary Care Provider Unavaildeshawn Ley DIRECTOR INBOUND SALES - BARTOLO, Pam D eLa Rosa Primary Care Prov ider JEREMIAH AMEER Referring Unavailable CADEN SANCHEZ Primary Care Unavailable JEREMIAH, AMEER Admitting Unavailable JEREMIAH, AMEER Attending Unavailable NAMRATA BLAIR Referring Unavailable PAM LEY Primary Care Unavailable NAMRATA BLIAR Referring Unavailable PAM ELY Primary Care Unavailable JEREMIAH, AMEER Attending Unavailable JEREMIAH, AMEER Referring Unavailable CADNE SANCHEZ Primary Care Unavailable JEREMIAH, AMEER Attending Unavailable JEREMIAH, AMEER Referring Unavailable CADEN SANCHEZ Primary Care Unavailable FLIP JHA Referring Unavailable CADEN SANCHEZ Primary Care Unavailable JEERMIAH, AMEER Referring Unavailable CADEN SANCHEZ Primary Care Unavailable JEREMIAH, AMEER Admitting Unavailable JEREMIAH, AMEER Attending Unavailable BRENNAN CALDERA Consulting Unavailable CADEN SANCHEZ Primary Care Unavailable CHARMAINE BLAND Consulting Unavailable MARITZA MIDDLETON Attending Unavailable MARITZA MIDDLETON Admitting Unavailable LeyPam Hewitt Primary Care Provid er OVITT, VALE Referring Unavailable OVITT, VALE Referring Unavailable OVITT, VALE Attending Unavailable OVPAT, VALE Referring Unavailable PAM LEY Attending Unavailable PAM LEY Referring Unavailable PAM LEY Primary Care Unavailable PAM LEY Attending Unavailable PAM LEY Referring Unavailable PAM LEY Primary Care Unavailable PAM ELY Referring Unavailable PAM LEY Primary Care Unavailable RAMBO MUÑOZ Referring Unavailable PAM LEY Primary Care Unavailable RAMBO MUÑOZ Attending Unavailable PAM LEY Referring Unavailable PAM LEY Primary Care Unavailable LESLEYNIKKISIMEON GONZALEZ Referring Unavailable PAM LEY Primary Care Unavailable Allergies Allergy Classification Reported Allergen(s) Allergy Type Date of Onset Reaction(s) Facility (1 source) 69191,00 Drug allergy (disorder) 01-23-2020 [facility] Medications Current Medications Medication Drug Class(es) Dates Sig (Normalized) Sig (Original) amLODIPine 5 mg oral tablet (11 sources) Dihydropyridine Calcium Channel Willi take 1 tablet by mouth once daily amLODIPine (NORVASC) 5 mg tablet Take 1 tablet (5 mg total) by mouth once daily. 0 Active aspirin 81 mg chewable tablet (14 sources) Platelet Aggregation Inhibitor, Nonsteroidal Anti-inflammatory Drug Start: 09-30-2022 take 1 tablet by mouth once daily aspirin 81 MG chewable tablet Take 1 tablet by mouth daily 30 tablet 3 09/30/2022 Active take 1 tablet by mouth in the mo rning aspirin 81 mg Take 1 tablet (81 mg total) by mouth in the morning. 0 Active take 1 tablet by mouth once stacy y aspirin 81 MG tablet Take 81 mg by mouth daily. 0 Active atorvastatin 80 mg oral tablet (13 sources) HMG-CoA Reductase Inhibitor Start: 09-29-2022 take 1 tablet by mouth in the morning atorvastatin (LIPITOR) 80 mg tablet Take 1 tablet (80 mg total) by mouth in the morning. 0 09/29/2022 Active azithromycin 250 mg oral tablet (1 source) Macrolide Antimicrobial Start: 12-15-2023 End: 12-19-2023 azithromycin (ZITHROMAX) 250 mg tablet Indications: Upper respiratory tract infection, unspecified type Take 2 tablets the first day, then 1 tablet daily for 4 days. 6 tablet 0 12/15/2023 12/19/2023 Active bisacodyl 5 mg delayed release oral tablet (1 source) Stimulant Laxative Start: 12-09-2022 bisacodyl (DULCOLAX) EC tablet 10 mg blood-glucose meter misc (5 sources) Start: 10-11-2020 blood-glucose meter misc Indications: Controlled type 2 diabetes mellitus with diabetic nephropathy, without long-term current use of insulin ([facility]) Monitor blood sugars four times daily and as needed 1 each 0 10/11/2020 Active blood-glucose sensor (DEXCOM G6 SENSOR) device (5 sources) blood-glucose sensor (DEXCOM G6 SENSOR) device by miscellaneous route. 0 Active cephalexin 250 mg oral capsule (1 source) Cephalosporin Antibacterial Start: 02-09-2024 End: 02-19-2024 take 1 capsule by mouth in the morning, then take 1 capsule by mouth at bedtime CEPHalexin (KEFLEX) 250 mg capsule Indications: Acute cystitis without hematuria Take 1 capsule (250 mg total) by mouth in the morning and 1 capsule (250 mg total) before bedtime. Do all this for 10 days. 20 capsule 0 02/09/2024 02/19/2024 Active clopidogrel 75 mg oral tablet (19 sources) P2Y12 Platelet Inhibitor Start: 09-29-2022 take 1 tablet by mouth in the morning clopidogreL (PLAVIX) 75 mg tablet Take 1 tablet (75 mg total) by mouth in the morning. 0 09/29/2022 Active DEXCOM G6 DISTILLERY MILLER HELPER misc (5 sources) Start: 05-06-2023 DEXCOM G6 DISTILLERY MILLER HELPER misc 1 Device by drain unit route See Admin Instructions. 0 05/06/2023 Active dextromethorphan hydrobromide 1.5 mg/ml / pyrilamine maleate 1.5 mg/ml oral solution (3 sources) Uncompetitive C-hzmfbl-Q-asparta te Receptor Antagonist, Sigma-1 Agonist Start: 12-15-2023 take 5 mL by mouth every eight hours as needed for cough and congestion pyrilamine-dextro methorphan 7.5-7.5 mg/5 mL liquid Indications: Upper respiratory tract infection, unspecified type Take 5 mL by mouth every 8 (eight) hours as needed (cough and congestion). 100 mL 0 12/15/2023 Active gabapentin 300 mg oral capsule (12 sources) Anti-epileptic Agent Start: 08-10-2023 End: 12-15-2023 take 1 capsule by mouth in the morning, then take 1 capsule by mouth at bedtime gabapentin (NEURONTIN) 300 mg capsule Indications: 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 mellitus ([facility]) Take 1 capsule (300 mg total) by mouth in the morning and 1 capsule (300 mg total) before bedtime. 180 capsule 1 12/15/2023 Active take 1 capsule by mouth in the m orning gabapentin (NEURONTIN) 100 MG capsule Take 100 mg by mouth in the morning and 100 mg in the evening. 0 Active glucagon (rdna) 1 mg injection (1 source) Antihypoglycemic Agent Start: 12-10-2022 glucago n (rDNA) injection 1 mg 1000 ml glucose 100 mg/ml injection (3 sources) Start: 12-10-2022 dextrose 10 % infusion Start: 12-10-2022 dextrose bolus 10% 125 mL Start: 12-10-2022 glucose chewab le tablet 16 g hydroCHLOROthiazide 25 mg oral tablet (13 sources) Thiazide Diuretic take 1 tablet by mouth once daily hydroCHLOROthiazide (HYDRODIURIL) 25 mg tablet Take 1 tablet (25 mg total) by mouth daily. 0 Active 3 ml insulin aspart, human 100 unt/ml pen injector (8 sources) Insulin Analog insulin aspart ( NOVOLOG) 100 UNIT/ML injection pen Inject into the skin 3 times daily (before meals). Takes 3 to 4 times daily based on glucose / sliding scale used 0 Active 3 ml insulin detemir 100 unt/ml pen injector (13 sources) Insulin Analog Start: 023 insulin detemir U-100 (LEVEMIR FLEXPEN) 100 unit/mL (3 mL) insulin pen Indications: Controlled type 2 diabetes mellitus with diabetic nephropathy, without long-term current use of insulin ([facility]) INJECT 30 UNITS UNDER THE SKIN NIGHTLY 30 mL 3 08/31/2023 Active insulin detemir (LEVEMIR) 100 UNIT/ML injection pen Inject 40 Units into the skin nightly. 0 Active insulin glargine 100 unt/ml injectable solution (2 sources) Insulin Analog Start: 12-11-2022 insulin glargi ne (LANTUS) injection vial 10 Units Start: 12-07-2022 End: 12-10-2022 insulin glargine (LANTUS) in jection vial 20 Units 3 ml insulin lispro 100 unt/ml pen injector (5 sources) Insulin Analog Start: 08-18-2023 inject 2 [IU] by subcutaneous injection four times daily at mealtime insulin lispro (HumaLOG KwikPen Insulin) 100 unit/mL insulin pen Indications: Mixed diabetic hyperlipidemia associated with type 2 diabetes mellitus ([facility]) Inject 2 Units under the skin 4 (four) times a day with meals and nightly. Patient states only takes 2 units if BG over 200 (does NOT take set dose of 36 units with meals) 0 08/18/2023 Active letrozole 2.5 mg oral tablet (6 sources) Aromatase Inhibitor Start: 03-18-2023 End: 03-12-2024 take 1 tablet by mouth once daily letrozole (FEMARA) 2.5 mg chemo tablet Indications: 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 female breast, unspecified estrogen receptor status ([facility]) TAKE 1 TABLET BY MOUTH EVERY DAY 90 tablet 3 01/04/2024 Active 24 hr metoprolol succinate 25 mg extended release oral tablet (14 sources) beta-Adrenergic Willi Start: 07-08-2023 End: 12-15-2023 take 1 tablet by mouth once daily metoprolol succinate XL (TOPROL XL) 25 mg 24 hr tablet Indications: Essential hypertension Take 1 tablet (25 mg total) by mouth once daily. 90 tablet 2 12/15/2023 Active take 1 tablet by mouth twice chelsea ly metoprolol (LOPRESSOR) 50 MG tablet Take 50 mg by mouth 2 times daily. 0 Active miscellaneous medical supply misc (5 sources) Start: 01-01-2021 miscellaneous medical supply misc Indications: Medication management 1 Unit by miscellaneous route See Admin Instructions. Split oral medication as indicated 1 each 0 01/01/2021 Active oxybutynin chloride 5 mg oral tablet (6 sources) Cholinergic Muscarinic Antagonist take 1 tablet by mouth once daily oxybutynin (DITROPAN) 5 MG tablet Take 5 mg by mouth daily 0 Active pantoprazole 40 mg delayed release oral tablet (12 sources) Proton Pump Inhibitor Start: 08-10-2023 End: 12-15-2023 take 1 tablet by mouth in the morning pantoprazole (PROTONIX) 40 mg EC tablet Indications: GERD without esophagitis Take 1 tablet (40 mg total) by mouth in the morning. 90 tablet 2 12/15/2023 Active take 40 mg by mouth once daily before breakfast pantoprazole sodium (PROTONIX) 40 MG PAC K packet Take 40 mg by mouth every morning (before breakfast) 0 Active sertraline 100 mg oral tablet (13 sources) Serotonin Reuptake Inhibitor Start: 08-10-2023 End: 12-15-2023 take 1 tablet by mouth in the morning sertraline (ZOLOFT) 100 mg tablet Indications: Major depressive disorder in partial remission, unspecified whether recurrent ([facility]) Take 1 tablet (100 mg total) by mouth in the morning. 90 tablet 2 12/15/2023 Active Start: 12-07-2022 take 100 mg by mouth once stacy y 100 mg, Oral, DAILY, First dose on Wed12/07/22 at 1645, Until Discontinued take 1 tablet by wilson th once daily sertraline (ZOLOFT) 100 MG tablet Take 100 mg by mouth daily 0 Active SITagliptin 50 mg oral tablet (14 sources) Dipeptidyl Peptidase 4 Inhibitor Start: 08-10-2023 End: 12-15-2023 take 1 tablet by mouth in the morning SITagliptin phosphate (JANUVIA) 50 mg tablet Indications: 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 ([facility]) Take 1 tablet (50 mg total) by mouth in the morning. 90 tablet 2 12/15/2023 Active take 1 tablet by mouth once stacy y sitaGLIPtin (JANUVIA) 50 MG tablet Take 50 mg by mouth daily. 0 Active traZODone hydrochloride 100 mg oral tablet (6 sources) Serotonin Reuptake Inhibitor Start: 09-28-2023 End: 12-06-2023 take 1 tablet by mouth once daily traZODone (DESYREL) 100 mg tablet Indications: Insomnia, unspecified type TAKE 1 TABLET BY MOUTH EVERY DAY AT NIGHT 90 tablet 1 12/07/2023 Active Completed/Discontinued Medications Medication Drug Class(es) Dates Sig (Normalized) Sig (Original) acetaminophen 325 mg oral tablet (6 sources) Start: 12-07-2022 take 650 mg by mouth every four hours as needed, then take 4000 mg by mouth every twenty-four hours as needed 650 mg, Oral, EVERY 4 HOURS PRN, Starting on 12/07/22 at 1618, Until Discontinued, Pain Mild (1-3), Fever, Fever >100.5 F (38 C) Maximum dose of acetaminophen is 4000 mg from all sources in 24 hours. Recovery(Cath) take 2 tablets by [facility] every six hours as needed for pain acetaminophen (TYLENOL) 500 mg tablet Ta ke 2 tablets (1,000 mg total) by mouth every 6 (six) hours as needed for pain. 0 Active cefTRIAXone (ROCEPHIN) 1 g in lidocaine (XYLOCAINE) 10 mg/mL (1 %) IM injection (2 sources) Start: 02-09-2024 End: 02-09-2024 cefTRIAXone (ROCEPHIN) 1 g in lidocaine (XYLOCAINE) 10 mg/mL (1 %) IM injection iopamidol (ISOVUE-370) 76 % injection 180 mL (1 source) Start: 01-13-2023 End: 01-13-2023 iopamidol (ISOVUE-370) 76 % injection 180 mL ondansetron 4 mg disintegrating oral tablet (4 sources) Serotonin-3 Receptor Antagonist Start: 09-27-2023 End: 12-15-2023 take 1 tablet by mouth every eight hours as needed for nausea ondansetron ODT (ZOFRAN ODT) 4 mg disintegrating tablet Dissolve 1 tablet (4 mg total) on tongue every 8 (eight) hours as needed for nausea for up to 10 doses. 10 tablet 0 09/27/2023 12/15/2023 Discontinued (Therapy completed) Start: 12-07-2022 End: 12-07-2022 ondansetron (ZOFRAN) injecti on 4 mg polyethylene glycol [id number] mg powder for oral solution (1 source) Osmotic Laxative Start: 12-09-2022 End: 12-09-2022 polyethylene glycol (GLYCOLAX) packet 17 g 1000 ml sodium chloride 9 mg/ml injection (9 sources) Start: 01-13-2023 End: 01-13-2023 0.9 % sodium chloride infusion Start: 12-07-2022 take 1 dose intraven ously [...] Classification Problem Date Documented Date Episodic/Chronic Acute myocardial infarction (13 sources) Myocardial infarction; Translations: [Non-ST elevation (NSTEMI) myocardial infarction] Onset: 2 09-29-2022 Chronic Asthma (1 source) Unspecified asthma, uncomplicated; Translations: [UNSPECIFIED ASTHMA UNCOMPLICATED] Onset: 1 Chronic Cancer of breast (8 sources) Malignant neoplasm of upper-outer quadrant of female breast; Translations: [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 female breast] Onset: 3 11-25-2023 Chronic Chronic kidney disease (12 sources) Chronic kidney disease; Translations: [Chronic kidney disease, unspecified] Onset: 2 01-13-2023 Chronic Chronic kidney disease (3 sources) Chronic kidney disease; Translations: [Chronic kidney disease, stage 3a] Onset: 2 Chronic obstructive pulmonary disease and bronchiectasis (1 source) Chronic obstructive pulmonary disease, unspecified; Translations: [Chronic obstructive pulmonary disease, unspecified] Onset: 2 Chronic Conduction disorders (5 sources) Left bundle branch block; Translations: [Left bundle-branch block, unspecified] Onset: 0 03-26-2020 Chronic Congestive heart failure; nonhypertensive (6 sources) Acute on chronic diastolic heart failure; Translations: [Acute on chronic diastolic (congestive) heart failure] Onset: 2 Resolved: 4 10-05-2022 Chronic Coronary atherosclerosis and other heart disease (19 sources) Disorder of coronary artery; Translations: [Atherosclerotic heart disease of [place] coronary artery without angina pectoris] Onset: 1 01-13-2023 Chronic Deficiency and other anemia (5 sources) Anemia of chronic disease; Translations: [Anemia in other chronic diseases classified elsewhere] Onset: 7 04-01-2023 Chronic Deficiency and other anemia (5 sources) Anemia; Translations: [Anemia, unspecified] Onset: 3 01-13-2023 Episodic Diabetes mellitus with complications (20 sources) Type 2 diabetes mellitus; Translations: [Type 2 diabetes mellitus with diabetic neuropathy, unspecified] Onset: 7 01-13-2023 Chronic Diabetes mellitus without complication (1 source) Type 2 diabetes mellitus without complications; Translations: [TYPE 2 DM WITHOUT COMPLICATIONS] Onset: 1 Chronic Disorders of lipid metabolism (1 source) Pure hypercholesterolemia, unspecified; Translations: [PURE HYPERCHOLESTEROLEMIA UNSPEC] Onset: 1 Chronic Esophageal disorders (7 sources) Gastro-esophageal reflux disease without esophagitis; Translations: [Gastroesophageal reflux disease without esophagitis] Onset: 7 03-28-2018 Chronic Essential hypertension (17 sources) Essential (primary) hypertension; Translations: [Essential hypertension] Onset: 9 Resolved: 2 04-01-2023 Chronic Genitourinary symptoms and ill-defined conditions (8 sources) Total urinary incontinence; Translations: [Continuous leakage] Onset: 9 Resolved: 0 12-14-2019 Chronic Heart valve disorders (20 sources) Nonrheumatic aortic (valve) stenosis; Translations: [Aortic valve disorders] Onset: 2 10-13-2022 Chronic Mood disorders (14 sources) Major depressive disorder, single episode, unspecified; Translations: [Recurrent major depressive episodes, moderate ] Onset: 9 Resolved: 0 07-17-2019 Chronic Osteoarthritis (5 sources) Primary gonarthrosis, bilateral; Translations: [Bilateral primary osteoarthritis of knee] Onset: 8 10-26-2018 Chronic Other aftercare (2 sources) prison (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; Translations: [USP CURRENT USE OF INSULIN] Onset: 1 Episodic Other aftercare (1 source) Other long term care phlebotomist (current) drug therapy; Translations: [OTH USP CURRENT 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] Onset: 1 Episodic Other circulatory disease (6 sources) History of angioplasty; Translations: [Peripheral vascular angioplasty status with implants and grafts] Onset: 3 12-07-2022 Chronic Other lower respiratory disease (2 sources) Shortness of breath; Translations: [Shortness of breath] Onset: 3 Episodic Other lower respiratory disease (1 source) Cough Onset: 4 Episodic Other nervous system disorders (5 sources) Cerebral ventriculomegaly; Translations: [Other specified disorders of brain] Onset: 9 07-24-2020 Chronic Other nervous system disorders (6 sources) Normal pressure hydrocephalus; Translations: [(Idiopathic) normal pressure hydrocephalus] Onset: 9 07-24-2020 Chronic Other nervous system disorders (3 sources) (Idiopathic) normal pressure hydrocephalus; Translations: [(Idiopathic) normal pressure hydrocephalus] Onset: 0 Chronic Other nervous system disorders (1 source) Tremor, unspecified; Translations: [Tremor, unspecified] Onset: 3 Episodic Other upper respiratory disease (1 source) Nasal congestion Onset: 4 Episodic Other upper respiratory infections (2 sources) Upper respiratory infection; Translations: [Acute upper respiratory infection, unspecified] Onset: 4 12-15-2023 Episodic Peripheral and visceral atherosclerosis (8 sources) Peripheral vascular disease, unspecified; Translations: [Peripheral vascular disease] Onset: 7 05-25-2017 Chronic Residual codes; unclassified (2 sources) Obstructive sleep apnea (adult) (pediatric); Translations: [OBSTRUCTIVE SLEEP APNEA] Onset: 1 Chronic Residual codes; unclassified (11 sources) Obstructive sleep apnea syndrome; Translations: [Obstructive sleep apnea (adult) (pediatric)] Onset: 9 01-13-2023 Chronic Residual codes; unclassified (5 sources) [...] of the circulatory system] Onset: 3 Episodic Residual codes; unclassified (1 source) Insomnia; Translations: [Insomnia, unspecified] 12-06-2023 Episodic Spondylosis; intervertebral disc disorders; other back problems (10 sources) Herniation of nucleus pulposus of lumbar intervertebral disc; Translations: [Other intervertebral disc displacement, lumbar region] Onset: 8 07-15-2022 Chronic Suicide and intentional self-inflicted injury (4 sources) Poisoning by insulin and oral hypoglycemic [antidiabetic] drugs, intentional self-harm, initial encounter; Translations: [PSN INSULIN ORL HG RX SLF-HRM INIT] Onset: 1 Episodic Unclassified (1 source) CONTACT W/AND (SUSP) EXPOS COVID-19; Translations: [CONTACT W/AND (SUSP) EXPOS COVID-19] Onset: 1 Past or Other Problems Problem Classification Problem Date Documented Da te Episodic/Chronic Acute and unspecified renal failure (13 sources) Acute injury of kidney; Translations: [Acute kidney failure, unspecified] Onset: 3 Episodic Conditions associated with dizziness or vertigo (10 sources) Dizziness; Translations: [Dizziness and giddiness] Onset: 9 Resolved: 1 12-11-2019 Episodic Gastrointestinal hemorrhage (5 sources) Gastrointestinal hemorrhage; Translations: [Gastrointestinal hemorrhage, unspecified] Onset: 9 10-17-2019 Episodic Heart valve disorders (5 sources) Heart murmur; Translations: [Cardiac murmur, unspecified] Onset: 0 03-26-2020 Episodic Mood disorders (5 sources) Mood disorders Onset: 3 Resolved: 4 08-17-2023 Other connective tissue disease (4 sources) Paraparesis; Translations: [Other symptoms and signs involving the musculoskeletal system] Onset: 8 Resolved: 0 05-28-2020 Episodic Other connective tissue disease (1 source) Other symptoms and signs involving the musculoskeletal system; Translations: [Other musculoskeletal symptoms referable to limbs] Onset: 8 Resolved: 0 05-28-2020 Episodic Other fractures (5 sources) Closed fracture pubis; Translations: [Unspecified fracture of left pubis, subsequent encounter for fracture with routine healing] Onset: 3 04-01-2023 Episodic Other lower respiratory disease (1 source) Hypoxemia; Translations: [Hypoxemia] Onset: 2 Episodic Other lower respiratory disease (5 sources) Dyspnea; Translations: [Shortness of breath] Onset: 2 10-05-2022 Episodic Other lower respiratory disease (5 sources) H/O: pneumonia; Translations: [Personal history of pneumonia (recurrent)] Onset: 2 10-05-2022 Episodic Other nervous system disorders (11 sources) Tremor; Translations: [Tremor, unspecified] Onset: 3 01-13-2023 Episodic Other nervous system disorders (5 sources) Finding related to ability to move; Translations: [Other abnormalities of gait and mobility] Onset: 1 04-28-2022 Episodic Other screening for suspected conditions (not mental disorders or infectious disease) (5 sources) D-dimer above reference range; Translations: [Other specified abnormal findings of blood chemistry] Onset: 2 10-05-2022 Episodic Pneumonia (except that caused by tuberculosis or sexually transmitted disease) (8 sources) Community acquired pneumonia; Translations: [Unspecified bacterial pneumonia] Onset: 2 09-28-2022 Episodic Residual codes; unclassified (5 sources) Edema of lower extremity; Translations: [Localized edema] Onset: 0 07-24-2020 Episodic Residual codes; unclassified (5 sources) Denture present; Translations: [Presence of dental prosthetic device (complete) (partial)] Onset: 9 07-24-2020 Episodic Residual codes; unclassified (1 source) Estrogen receptor positive status [ER+]; Translations: [Estrogen receptor positive status (ER+)] Onset: 3 Episodic Spondylosis; intervertebral disc disorders; other back problems (10 sources) Lumbar radiculopathy; Translations: [Radiculopathy, lumbar region] Onset: 8 05-27-2021 Episodic Unclassified (5 sources) Onset: 3 Resolved: 4 09-20-2023 Urinary tract infections (9 sources) Acute cystitis without hematuria; Translations: [Acute cystitis] Onset: 2 05-26-2022 Episodic Results Test Name Value Interpretation Reference Range Facility PET CT SKULL TO THIGHon -[address] SKULL TO THIGH PET CT SKULL TO THIGH PET CT SKULL TO THIGH CLINICAL HISTORY: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 female breast, unspecified estrogen receptor status (CMS-HCC); 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 breast in female, estrogen receptor positive (CMS-HCC) initial staging COMPARISON: None. TECHNIQUE: PET/CT was performed following intravenous administration of 19.3 mCi F-18 FDG with images obtained from the skull base through the mid thighs. Fasting glucose was 170 mg/dL at the time of administration. CT was performed utilizing free breathing technique and nondiagnostic collimation for the purposes attenuation correction and localization of radiotracer activity. FINDINGS: There is some misregistration the head and neck soft tissues. No abnormal enlarged cervical, supraclavicular or axillary lymph nodes. No abnormal enlarged axillary no evident pulmonary consolidation. Physiologic bowel and urinary activity no abnormal enlarged mesenteric Pelvic and adnexal cysts, stable. Ventricular shunt catheter tubing is noted. IMPRESSION: 1. No current scintigraphic evidence of metabolically active neoplastic or metastatic disease. Finalized by Sang Acevedo MD on 02/20/2024 6:48 PM Normal [facility] POCT urinalysis dipstick onl yon 02-09-2024 Appearance (U) cloudy [facility] External Poct Urine Bilirubin Negative [facility] External Poct Urine Blood Trace [facility] External Poct Urine Color yellow [facility] External Poct Urine Glucose Negative [facility] External Poct Urine Ketones Negative [facility] External Poct Urine Leukocyte Esterase 2+ [facility] External Poct Urine Nitrite Positive [facility] External Poct Urine Ph 6.5 [facility] External Poct Urine Protein Trace [facility] External Poct Urine Specific Clio 1.020 [facility] External Poct Urine Urobilinogen 0.2 [facility] URINE CULTUREon 02-09-2024 Bacteria identified Cx Nom (U) CULTURE RESULTS >100,000 ORGANISMS/mL ESCHERICHIA COLI [ S = SUSCEPTIBLE R = RESISTANT I = INTERMEDIATE S-DO = Susceptible-dose dependent NS = Non-suscceptible NO = No Interpretation ] Organism: ESCHERICHIA COLI Antibiotic Interpretation CLARK Status AMPICILLIN S <=2 F AMP/SULBACTAM S <=2/1 F CEFAZOLIN S <=4 F CEFTRIAXONE S <=1 F CIPROFLOXACIN S <=0.25 F GENTAMICIN S <=1 F LEVOFLOXACIN S <=0.12 F NITROFURANTOIN S <=16 F PIPERACIL/TAZOBACTAM S <=4 F TOBRAMYCIN S <=1 F TRIMETH/SULFAMETHOXAZOL E S <=12/03 F Susceptible [facility] Comment on above: Performed By: #### 6 30-4 #### [facility] ([id number]) [address], [address] [place] [address] 36on 02-07-2024 36 LVM for pt of upcomi ng CT/VPSS and follow up with Vale Bowser CNP. Reminder letter sent to pt's home. Normal [facility] ALBUMINon 01-10-2024 Albumin [Mass/Vol] 4.0 g/dL Normal 3.2-5.3 [facility] Comment on above: Performed By: #### C WILSON ALLEN, 1751-7, 70944-5, 2777-1, 2731-8, 52400-2 #### [facility] ([id number]) [address], [address] [place] [address] BASIC METABOLIC PANLon 01-10 Anion gap [Moles/Vol] 8 mmol/L Normal 5-15 [facility] Comment on above: Performed By: #### C WILSON ALLEN, 1751-7, 07429-5, 2777-1, 2731-8, 64694-7 #### [facility] ([id number]) [address], [address] [place] [address] Calcium [Mass/Vol] 9.1 mg/dL Normal 8.5-10.5 [facility] Comment on above: Performed By: #### C BC, BMP, 175-7, 78690-9, 2777-1, 2731-8, 00458-1 #### [facility] ([id number]) [address], [address] [place] [address] Chloride [Moles/Vol] 101 mmol/L Normal 98-109 [facility] Comment on above: Performed By: #### C BC, BMP, 175-7, 00906-6, 2777-1, 2731-8, 72028-4 #### [facility] ([id number]) [address] [address] [place] [address] CO2 [Moles/Vol] 29 mmol/L Normal 22-32 [facility] Comment on above: Performed By: #### C BC, BMP, 1750-7, 00255-3, 2777-1, 2731-8, 13668-5 #### [facility] ([id number]) [address], [address] [place] [address] Creatinine [Mass/Vol] 1.46 mg/dL High 0.40-1.00 [facility] Comment on above: Result Comment: METH OD TRACEABLE TO IDMS STANDARD Performed By: #### C BC, BMP, 1750-7, 18195-9, 2777-1, 2731-8, 34531-9 #### [facility] ([id number]) [address], [address] [place] [address] GFR/1.73 sq M.predicted among non-blacks MDRD (S/P/Bld) [Vol rate/Area] 37 mL/min/{1.73_m2} Low >59 [facility] Comment on above: Result Comment: Reported eGFR is based on the CKD-EPI 2020 equation that does not use a race coefficient. Performed By: #### C BC, BMP, 175-7, 72023-1, 2777-1, 2731-8, 96236-5 #### [facility] ([id number]) [address], [address] [place] [address] Glucose [Mass/Vol] 300 mg/dL High 65-99 [facility] Comment on above: Performed By: #### C BC, BMP, 175-7, 61721-3, 2777-1, 2731-8, 20689-2 #### [facility] ([id number]) [address], [address] [place] [address] Potassium [Moles/Vol] 4.4 mmol/L Normal 3.5-5.0 [facility] Comment on above: Performed By: #### C BC, BMP, 1750-7, 42878-2, 2777-1, 2731-8, 36552-6 #### [facility] ([id number]) [address], [address] [place] [address] Sodium [Moles/Vol] 138 mmol/L Normal 134-146 [facility] Comment on above: Performed By: #### C BC, BMP, 1750-7, 59991-2, 2777-1, 2731-8, 83942-0 #### [facility] ([id number]) [address], [address] [place] [address] Urea nitrogen [Mass/Vol] 26 mg/dL Normal 5-27 [facility] Comment on above: Performed By: #### Renita BC, BMP, 1750-7, 77196-1, 2777-1, 2731-8, 48694-2 #### [facility] ([id number]) [address] [place] [address] COMPLETE BLOOD COUNTon 01-10 Erythrocyte distribution width (RBC) [Ratio] 15.2 % High 11.5-15.0 [facility] Comment on above: Performed By: #### Renita BC, BMP, 1750-7, 66449-5, 2777-1, 2731-8, 55224-5 #### [facility] ([id number]) [address], [address] [place] [address] Hematocrit (Bld) [Volume fraction] 31.6 % Low 35-47 [facility] Comment on above: Performed By: #### C BC, BMP, 1750-7, 37808-6, 2777-1, 273-8, 54943-8 #### [facility] ([id number]) [address], [address] [place] [address] Hemoglobin (Bld) [Mass/Vol] 10.3 g/dL Low 11.7-15.5 [facility] Comment on above: Performed By: #### Renita BC, BMP, 1750-, 14321-7, 2776-1, 2730-8, 65640-0 #### [facility] ([id number]) [address], [address] [place] [address] MCH (RBC) [Entitic mass] 27.7 pg Normal 27-34 [facility] Comment on above: Performed By: #### Renita BC, BMP, 1751-05, 41641-8, 2776-1, 2730-8, 46833-1 #### [facility] ([id number]) [address], [address] [place] [address] MCHC (RBC) [Mass/Vol] 32.5 g/dL Normal 32-36 [facility] Comment on above: Performed By: #### Renita BC, BMP, 1750-, 27415-7, 2776-1, 273-8, 30368-3 #### [facility] ([id number]) [address], [address] [place] [address] MCV (RBC) [Entitic vol] 85 fL Normal 80-100 [facility] Comment on above: Performed By: #### Renita BC, BMP, 1750-, 84730-8, 7-1, 273-8, 96165-0 #### [facility] ([id number]) [address], [address] [place] [address] Platelet mean volume (Bld) [Entitic vol] 8.5 fL Normal 7-12 [facility] Comment on above: Performed By: #### Renita BC, BMP, 175-7, 01669-1, 2777-1, 2731-8, 52534-6 #### [facility] ([id number]) [address], [address] [place] [address] Platelets (Bld) [#/Vol] 231 10*3/uL Normal 150-450 [facility] Comment on above: Performed By: #### Renita BC, BMP, 1750-7, 72144-1, 2777-1, 2731-8, 59467-3 #### [facility] ([id number]) [address], [address] [place] [address] RBC COUNT 3.70 X10E12/L Low 3.80-5.20 [facility] Comment on above: Performed By: #### Renita ALLEN, BMP, 1750-7, 57355-2, 2777-1, 2731-8, 64046-3 #### [facility] ([id number]) [address], [address] [place] [address] WBC (Bld) [#/Vol] 4.8 10*3/uL Normal 4.0-11.0 [facility] Comment on above: Performed By: #### Renita BC, BMP, 1750-7, 62196-2, 2777-1, 2731-8, 06194-5 #### [facility] ([id number]) [address], [address] [place] [address] HGB A1C (GLYCO-HGB)on 2023 Glucose [Mass/Vol] 203 mg/dL Normal [facility] Comment on above: Performed By: #### Renita BC, BMP, 1750-7, 51151-8, 2777-1, 273-8, 69408-8 #### [facility] ([id number]) [address], [address] [place] [address] HbA1c (Bld) [Mass fraction] 8.7 % High 4.4-5.6 [facility] Comment on above: Result Comment: NOTE ADA Guidelines Result HgbA1c Normal : less than 5.7 % Prediabetes : 5.7 % to 6.4 % Diabetes : > 6.4 % Use with caution in patients with abnormal hemoglobin variants as the half-life of red blood cells and in vivo glycation rates are affected. Performed By: #### WILSON MAI, 1751-05, , 2776-, 2730-8, 20278-7 #### [facility] ([id number]) [address], [address] [place] [address] MAGNESIUMon 01-10-2024 Magnesium [Mass/Vol] 1.9 mg/dL Normal 1.8-2.6 [facility] Comment on above: Performed By: #### WILSON MAI, 1751-05, , 2776-11, 8, 29840-7 #### [facility] ([id number]) [address], [address] [place] [address] PHOSPHORUSon 01-10-2024 Phosphate [Mass/Vol] 3.8 mg/dL Normal 2.4-4.9 [facility] Comment on above: Performed By: #### WILSON MAI, 1751-05, , 2776-11, 273-8, 44960-4 #### [facility] ([id number]) [address], [address] [place] [address] Parathyrin.intact [Mass/Vol] on 01-10-2024 PTH INTACT 71 pg/mL Normal 12-88 [facility] Comment on above: Performed By: #### C BC, BMP, 1751-7, 83505-8, 2777-1, 2731-8, 20156-2 #### [facility] ([id number]) [address] [place] [address], [address] [place] [address] Vitamin D+Metabolites [Mass/ Vol]on 01-10-2024 VITAMIN D 25 HYD TOT 38.9 ng/mL Normal 30-100 [facility] Comment on above: Result Comment: Vitamin D status 25 [place] Vitamin D Deficiency <20 ng/mL Insufficiency 20-29 ng/mL Sufficiency 30-100 ng/mL Toxicity >100 ng/mL NOTE: A pediatric reference range has not been established by the assistant press operator of this kit. The [place] [employer] recommends a Vitamin D level of = or >20ng/mL in infants and children. Performed By: #### C BC, BMP, 1751-7, 23618-9, 2777-1, 2731-8, 26902-4 #### [facility] ([id number]) [address] [place] [address], [address] [place] [address] Follow-Upon 03-23-2023 Follow-Up [id number] Jb Goodwin Y 1945 F Date Provider Department Center 03/23/2023 VALE TAMAYO [facility] SURG Second Fl Family History Problem Relation Age of Onset Diabetes Mother Hypertension Father Coronary artery disease Father Family Status - Relation Status Age at Mother Father Level of Service:46405 [place] OFFICE/OUTPATIENT ESTABLISHED LOW MDM 20-29 MIN Reason for Visit and Comments: Follow-up [548008] - shunt check s/p mri; Patient has been off balance. Normal [facility] 01-18-2023 CT [facility] ONLY EXAMINATION: CT HEART [...] valve measurements were analyzed and provided by [email or web address] and are reported separately to the cardiology department. 3. Severe triple-vessel coronary artery calcifications. 4. Small sliding hiatal hernia. Interpreted by: Brennan Parra MD Signed by: Brennan Parra MD 01/18/23 Final result Normal [facility] CTA CHEST ABDOMEN PELVIS W [facility] 01-15-2023 CTA CHEST ABDOMEN PELVIS W CONTRAST [...] with a couple of ill-defined sclerotic foci. USER ACCEPTANCE TESTER shunt tubing in the right neck and [...] adenopathy. Very small fat containing umbilical hernia. USER ACCEPTANCE TESTER shunt tubing enters the abdomen in the [...] pelvis which may be related to the USER ACCEPTANCE TESTER shunt catheter. There is a cystic left [...] for planned (more content not included)... Normal [facility] No acute abnormality identified on CTA of [...] recommended. 5 mm subpleural right lung nodule. USER ACCEPTANCE TESTER shunt noted. Small hiatal hernia. The findings [...] with a couple of ill-defined sclerotic foci. USER ACCEPTANCE TESTER shunt tubing in the right neck and [...] adenopathy. Very small fat containing umbilical hernia. USER ACCEPTANCE TESTER shunt tubing enters the abdomen in the [...] pelvis which may be related to the USER ACCEPTANCE TESTER shunt catheter. There is a cystic left [...] in the left flank and gluteal regions. [facility] Tato Whaley MD - 01/15/2023 EXAMINATION: CTA OF THE [...] with a couple of ill-defined sclerotic foci. USER ACCEPTANCE TESTER shunt tubing in the right neck and [...] adenopathy. Very small fat containing umbilical hernia. USER ACCEPTANCE TESTER shunt tubing enters the abdomen in the [...] pelvis which may be related to the USER ACCEPTANCE TESTER shunt catheter. There is a cystic left [...] and gluteal regions. (more content not included)... [employer] Work Phone: CTA CHEST ABDOMEN PELVIS W C ONTRASTOrdered By: Tato Syed on 01-15-2023 [employer] Work Phone: PULMONARY FUNCTIONon 0[address] [phone] PULMONARY FUNCTION PATIENT NAME: CUCA GOODWIN : 1945 MED REC NO: [id number] ROOM: ACCOUNT NO: [id number] ADMIT DATE: 01/13/2023 PROVIDER: Whit Maloney DATE [...] correlation is recommended. WHIT MALONEY [id number] Doc#: [id number] CC: Normal [facility] CTA CHEST ABDOMEN PELVIS W C ONTRASTon 01-13-2023 Radiology Study observation (narrative) [employer] Work Phone: POC Glucose Fingerstickon Glucose [Mass/Vol] 104 mg/dL 65 - 105 mg/dL [employer] [facility] Basic Metabolic Panelon 11-16 Anion gap [Moles/Vol] 11 mmol/L 9 - 17 mmol/L [employer] Calcium [Mass/Vol] 9.0 mg/dL 8.6 - 10. 4 mg/dL [facility] Chloride [Moles/Vol] 105 mmol/L 98 - 107 mmol/L [facility] CO2 [Moles/Vol] 20 mmol/L 20 - 31 mmol/L [facility] Creatinine [Mass/Vol] 1.04 mg/dL High 0.50 - 0.90 mg/dL [facility] GFR/1.73 sq M.predicted MDRD (S/P/Bld) [Vol rate/Area] 56 mL/min/{1.73_m2} Low - PINF [facility] Comment on above: These results are not [...] 131 mg/dL High 70 - 99 mg/dL [facility] Interpretation and review of laboratory results Abnormal [facility] Potassium [Moles/Vol] 4.3 mmol/L 3.7 - 5.3 mmol/L [facility] Sodium [Moles/Vol] 136 mmol/L 135 - 144 mmol/L [facility] Urea nitrogen (BldV) [Mass/Vol] 17 mg/dL 8 - 23 mg/dL [facility] Basic Metabolic Profon 12-10 Anion gap [Moles/Vol] 11 mmol/L Normal 9-17 [facility] Comment on above: Performed By: #### H H, BMPX #### [facility] [address] [place] [address] [employer]her And Binder Operator: Luis Solis MD Calcium [Mass/Vol] 9.0 mg/dL Normal 8.6-10.4 [facility] Comment on above: Performed By: #### H H, BMPX #### [facility] [address] [place], [place] [address] [employer]her [employer] Binder Operator: Luis Solis MD Chloride [Moles/Vol] 105 mmol/L Normal 98-107 [facility] Comment on above: Performed By: #### H H, BMPX #### [facility] [address] [place] [address] Crusher And Binder Operator: Luis Solis MD CO2 [Moles/Vol] 20 mmol/L Normal 20-31 [facility] Comment on above: Performed By: #### H H, BMPX #### [facility] [address] [place] [address] Crusher And Binder Operator: Luis Solis MD Creatinine [Mass/Vol] 1.04 mg/dL High 0.50-0.90 [facility] Comment on above: Performed By: #### H H, BMPX #### [address] [address] [employer] Binder Operator: Luis Solis MD GFR/1.73 sq M.predicted among non-blacks MDRD (S/P/Bld) [Vol rate/Area] 56 mL/min/{1.73_m2} Low >60 [facility] Comment on above: Result Comment: These results [...] Performed By: #### H H, BMPX #### [facility] [address] [place] [address] Crusher And Binder Operator: Luis Solis MD Glucose [Mass/Vol] 131 mg/dL High 70-99 [facility] Comment on above: Performed By: #### H H, BMPX #### [facility] [address] [place] [address] [employer] Binder Operator: Luis Solis MD Potassium [Moles/Vol] 4.3 mmol/L Normal 3.7-5.3 [facility] Comment on above: Performed By: #### H H, BMPX #### [facility] [address] [place] [address] Crusher And Binder Operator: Luis Solis MD Sodium [Moles/Vol] 136 mmol/L Normal 135-144 [facility] Comment on above: Performed By: #### H H, BMPX #### [facility] [address] [place] [address] [employer]her And Binder Operator: Luis Solis MD Urea nitrogen [Mass/Vol] 17 mg/dL Normal 8-23 [facility] Comment on above: Performed By: #### H H, BMPX #### [facility] [address] [place] [address] [employer]her And Binder Operator: Luis Solis MD Hemoglobin and Hematocriton 6 Hematocrit (Bld) [Volume fraction] 25.5 % Low 36.3 - 47.1 % [facility] Hemoglobin (Bld) [Mass/Vol] 7.9 g/dL Low 11.9 - 15.1 g/dL [facility] Interpretation and review of laboratory results Abnormal [facility] Hgb/Hcton 9 Hematocrit (Bld) [Volume fraction] 25.5 % Low 36.3-47.1 [facility] Comment on above: Performed By: #### H H, BMPX #### [facility] [address] [place] [address] [employer] B[employer] Operator: Luis Solis MD Hemoglobin (Bld) [Mass/Vol] 7.9 g/dL Low 11.9-15.1 [facility] Comment on above: Performed By: #### H H, BMPX #### [facility] [address] [place] [address] [employer] Binder Operator: Luis Solis MD Laboratory - Blood bankon Blood product type Nom (BPU) Leukocyte Reduced Red Cell [facility] No Panel Informationon 12-10 Blood Bank ISBT Product Blood Type 9500 [facility] Blood Bank Unit Type and Rh Negative [facility] Crossmatch Result COMPATIBLE [facility] Dispense Status TRANSFUSED [facility] Transfusion Status OK TO TRANSFUSE B ON [facility] Unit Divison 0 [facility] POC Glucose Fingerstickon Glucose [Mass/Vol] 105 mg/dL 65 - 105 mg/dL [facility] Glucose [Mass/Vol] 119 mg/dL High 65 - 105 mg/dL [facility] Interpretation and review of laboratory results Abnormal [facility] Glucose [Mass/Vol] 159 mg/dL High 65 - 105 mg/dL [facility] Interpretation and review of laboratory results Abnormal [facility] Glucose [Mass/Vol] 70 mg/dL 65 - 105 mg/dL [facility] Glucose [Mass/Vol] 41 mg/dL Low 65 - 105 mg/dL [facility] Comment on above: Critical Noted Interpretation and review of laboratory results Abnormal [facility] TYPE AND SCREENon 12-10-2022 ABO/Rh Negative [facility] Arm Band Number [id number] [facility] Blood Bank Blood Product Expiration Date [facility] Blood Bank Blood Product Expiration Date [id number] [facility] Blood Bank Blood Product Expiration Date [id number] [facility] Blood product unit ID (Dose) [#] [id number] [facility] Blood product unit ID (Dose) [#] [id number] [facility] Blood product unit ID (Dose) [#] [id number] [facility] Expiration Date 12/10/2022,2359 [facility] Product Code Blood Bank [id number] [facility] Product Code Blood Bank [id number] [facility] Product Code Blood Bank [id number] [facility] Unit Issue Date/Time [id number] [facility] Unit Issue Date/Time [id number] [facility] Unit Issue Date/Time [id number] [facility] Basic Metab w/rfx MGon 12-09 Anion gap [Moles/Vol] 10 mmol/L Normal 9-17 [facility] Comment on above: Performed By: #### H H, BMPX #### [facility] [address] [place] [address] [employer] Binder Operator: Luis Solis MD Calcium [Mass/Vol] 8.6 mg/dL Normal 8.6-10.4 [facility] Comment on above: Performed By: #### H H, BMPX #### [facility] [address] [place] [address] [employer]her [employer] Binder Operator: Luis Solis MD Chloride [Moles/Vol] 106 mmol/L Normal 98-107 [facility] Comment on above: Performed By: #### H H, BMPX #### [facility] [address] [place] [address] [employer] Binder Operator: Luis Solis MD CO2 [Moles/Vol] 21 mmol/L Normal 20-31 [facility] Comment on above: Performed By: #### H H, BMPX #### [facility] [address] [place] [address] [employer] B[employer] Operator: Luis Solis MD Creatinine [Mass/Vol] 1.33 mg/dL High 0.50-0.90 [facility] Comment on above: Performed By: #### H H, BMPX #### [facility] [address] [place] [address] [employer] Binder Operator: Luis Solis MD GFR/1.73 sq M.predicted among non-blacks MDRD (S/P/Bld) [Vol rate/Area] 41 mL/min/{1.73_m2} Low >60 [facility] Comment on above: Result Comment: Effective Aug [...] Performed By: #### H H, BMPX #### [facility] [address] [place] [address] [employer] B[employer] Operator: Luis Solis MD Glucose [Mass/Vol] 102 mg/dL High 70-99 [facility] Comment on above: Performed By: #### H H, BMPX #### [facility] [address] [place] [address] [employer] B[employer] Operator: Luis Solis MD Potassium [Moles/Vol] 4.1 mmol/L Normal 3.7-5.3 [facility] Comment on above: Performed By: #### H H, BMPX #### [facility] [address] [place] [address] [employer] B[employer] Operator: Luis Solis MD Sodium [Moles/Vol] 137 mmol/L Normal 135-144 [facility] Comment on above: Performed By: #### H H, BMPX #### [facility] [address] [place] [address] [employer] B[employer] Operator: Luis Solis MD Urea nitrogen [Mass/Vol] 19 mg/dL Normal 8-23 [facility] Comment on above: Performed By: #### H H, BMPX #### [facility] [address] [place] [address] [employer] B[employer] Operator: Luis Solis MD Basic Metabolic Panel w/ Ref pierre to MGon 12-09-2022 Anion gap [Moles/Vol] 10 mmol/L 9 - 17 mmol/L [facility] Calcium [Mass/Vol] 8.6 mg/dL 8.6 - 10. 4 mg/dL [facility] Chloride [Moles/Vol] 106 mmol/L 98 - 107 mmol/L [facility] CO2 [Moles/Vol] 21 mmol/L 20 - 31 mmol/L [facility] Creatinine [Mass/Vol] 1.33 mg/dL High 0.50 - 0.90 mg/dL [facility] GFR/1.73 sq M.predicted MDRD (S/P/Bld) [Vol rate/Area] 41 mL/min/{1.73_m2} Low - PINF [facility] Comment on above: Effective Aug 17, 2022 [...] 102 mg/dL High 70 - 99 mg/dL [facility] Interpretation and review of laboratory results Abnormal [facility] Potassium [Moles/Vol] 4.1 mmol/L 3.7 - 5.3 mmol/L [facility] Sodium [Moles/Vol] 137 mmol/L 135 - 144 mmol/L [facility] Urea nitrogen (BldV) [Mass/Vol] 19 mg/dL 8 - 23 mg/dL [facility] Hemoglobin and Hematocriton 12-09-2022 Hematocrit (Bld) [Volume fraction] 25.6 % Low 36.3 - 47.1 % [facility] Hemoglobin (Bld) [Mass/Vol] 8.0 g/dL Low 11.9 - 15.1 g/dL [facility] Interpretation and review of laboratory results Abnormal [facility] Hematocrit (Bld) [Volume fraction] 23.5 % Low 36.3 - 47.1 % [facility] Hemoglobin (Bld) [Mass/Vol] 7.1 g/dL Low 11.9 - 15.1 g/dL [facility] Interpretation and review of laboratory results Abnormal [facility] Hgb/Hcton 12-09-2022 Hematocrit (Bld) [Volume fraction] 25.6 % Low 36.3-47.1 [facility] Comment on above: Performed By: #### H H, BMPX #### [facility] [address] [place] [phone] [employer] B[employer] Operator: Luis Solis MD Hemoglobin (Bld) [Mass/Vol] 8.0 g/dL Low 11.9-15.1 [facility] Comment on above: Performed By: #### H H, BMPX #### [facility] [address] [place] [phone] [employer] Operator: Luis Solis MD Hematocrit (Bld) [Volume fraction] 23.5 % Low 36.3-47.1 [facility] Comment on above: Performed By: #### H H, BMPX #### [facility] [address] [place] [phone] [employer] Operator: Luis Solis MD Hemoglobin (Bld) [Mass/Vol] 7.1 g/dL Low 11.9-15.1 [facility] Comment on above: Performed By: #### H H, BMPX #### [facility] [address] [place] [address] [phone] [employer]her [employer] Binder Operator: Luis Solis MD POC Glucose Fingerstickon Glucose [Mass/Vol] 143 mg/dL High 65 - 105 mg/dL [facility] Interpretation and review of laboratory results Abnormal [facility] Glucose [Mass/Vol] 96 mg/dL 65 - 105 mg/dL [facility] Glucose [Mass/Vol] 114 mg/dL High 65 - 105 mg/dL [facility] Interpretation and review of laboratory results Abnormal [facility] Glucose [Mass/Vol] 111 mg/dL High 65 - 105 mg/dL [facility] Interpretation and review of laboratory results Abnormal [facility] Type + Screenon 12-09-2022 Type + Screen Sample Expiration 12/10/2022,2359 Arm Band Number [id number] ABO/Rh(D) O NEGATIVE Antibody Screen NEGATIVE Unit Number [id number] Blood Component Type Leukocyte Reduced Red Cell Unit Division 00 Status of Unit TRANSFUSED Transfusion Status OK TO TRANSFUSE Crossmatch Result COMPATIBLE Unit Number [id number] Blood Component Type Leukocyte Reduced Red Cell Unit Division 00 Status of Unit TRANSFUSED Transfusion Status OK TO TRANSFUSE Crossmatch Result COMPATIBLE Unit Number [id number] Blood Component Type Leukocyte Reduced Red Cell Unit Division 00 Status of Unit TRANSFUSED Transfusion Status OK TO TRANSFUSE Crossmatch Result COMPATIBLE Normal [facility] Comment on above: Performed By: #### R CHITO, BMPX #### [facility] [address] [place], [place] [phone] [employer] Binder Operator: Luis Solis MD Basic Metab w/rfx MGon 12-08 Anion gap [Moles/Vol] 9 mmol/L Normal 9-17 [facility] Comment on above: Performed By: #### R CHITO, BMPX #### [facility] [address] [place] [phone] [employer]her [employer] Binder Operator: Luis Solis MD Calcium [Mass/Vol] 8.6 mg/dL Normal 8.6-10.4 [facility] Comment on above: Performed By: #### R CHITO, BMPX #### [facility] [address] [place] [address] [phone] [employer] Binder Operator: Luis Solis MD Chloride [Moles/Vol] 106 mmol/L Normal 98-107 [facility] Comment on above: Performed By: #### R ZAINABEC, BMPX #### [facility] [address] [place] [address] [phone] [employer] Binder Operator: Luis Solis MD CO2 [Moles/Vol] 24 mmol/L Normal 20-31 [facility] Comment on above: Performed By: #### R CHITO, BMPX #### [facility] [address] [place] [address] [employer] Operator: Luis Solis MD Creatinine [Mass/Vol] 1.33 mg/dL High 0.50-0.90 [facility] Comment on above: Performed By: #### R CHITO BMPX #### [facility] [employer] [address] [place] [address] [phone] [employer] B[employer] Operator: Luis Solis MD GFR/1.73 sq M.predicted among non-blacks MDRD (S/P/Bld) [Vol rate/Area] 41 mL/min/{1.73_m2} Low >60 [facility] Comment on above: Result Comment: Effective Aug [...] Performed By: #### R CHITO BMPX #### [facility] [address] [place] [address] [employer]her [employer] Binder Operator: Luis Solis MD Glucose [Mass/Vol] 160 mg/dL High 70-99 [facility] Comment on above: Performed By: #### R CHITO BMPX #### [facility] [address] [place] [address] [employer] Operator: Luis Solis MD Potassium [Moles/Vol] 4.4 mmol/L Normal 3.7-5.3 [facility] Comment on above: Performed By: #### R CHITO, BMPX #### [facility] [address] [place], [place] [phone] [employer] Operator: Luis Solis MD Sodium [Moles/Vol] 139 mmol/L Normal 135-144 [facility] Comment on above: Performed By: #### R EJEC, BMPX #### [facility] [address] [place] [address] [employer]her [employer] Binder Operator: Luis Solis MD Urea nitrogen [Mass/Vol] 21 mg/dL Normal 8-23 [facility] Comment on above: Performed By: #### R EJEC, BMPX #### [facility] [address] [place] [address] [employer] Binder Operator: Luis Solis MD Basic Metabolic Panelon 11-16 Anion gap [Moles/Vol] 7 mmol/L Low 9 - 17 mmol/L [facility] Calcium [Mass/Vol] 8.5 mg/dL Low 8.6 - 10. 4 mg/dL [facility] Chloride [Moles/Vol] 110 mmol/L High 98 - 107 mmol/L [facility] CO2 [Moles/Vol] 25 mmol/L 20 - 31 mmol/L [facility] Creatinine [Mass/Vol] 1.43 mg/dL High 0.50 - 0.90 mg/dL [facility] GFR/1.73 sq M.predicted MDRD (S/P/Bld) [Vol rate/Area] 38 mL/min/{1.73_m2} Low - PINF [facility] Comment on above: Effective Aug 17, 2022 [...] 124 mg/dL High 70 - 99 mg/dL [facility] Interpretation and review of laboratory results Abnormal [facility] Potassium [Moles/Vol] 4.7 mmol/L 3.7 - 5.3 mmol/L [facility] Sodium [Moles/Vol] 142 mmol/L 135 - 144 mmol/L [facility] Urea nitrogen (BldV) [Mass/Vol] 23 mg/dL 8 - 23 mg/dL [facility] Basic Metabolic Panel w/ Ref pierre to MGon 12-08-2022 Anion gap [Moles/Vol] 9 mmol/L 9 - 17 mmol/L [facility] Calcium [Mass/Vol] 8.6 mg/dL 8.6 - 10. 4 mg/dL [facility] Chloride [Moles/Vol] 106 mmol/L 98 - 107 mmol/L [facility] CO2 [Moles/Vol] 24 mmol/L 20 - 31 mmol/L [facility] Creatinine [Mass/Vol] 1.33 mg/dL High 0.50 - 0.90 mg/dL [facility] GFR/1.73 sq M.predicted MDRD (S/P/Bld) [Vol rate/Area] 41 mL/min/{1.73_m2} Low - PINF [facility] Comment on above: Effective Aug 17, 2022 [...] 160 mg/dL High 70 - 99 mg/dL [facility] Interpretation and review of laboratory results Abnormal [facility] Potassium [Moles/Vol] 4.4 mmol/L 3.7 - 5.3 mmol/L [facility] Sodium [Moles/Vol] 139 mmol/L 135 - 144 mmol/L [facility] Urea nitrogen (BldV) [Mass/Vol] 21 mg/dL 8 - 23 mg/dL [facility] Basic Metabolic Profon 12-08 Anion gap [Moles/Vol] 7 mmol/L Low 9-17 [facility] Comment on above: Performed By: #### B MP, CBC #### [facility] [employer] [address] [place] [address] [phone] [employer] Binder Operator: Luis Solis MD Calcium [Mass/Vol] 8.5 mg/dL Low 8.6-10.4 [facility] Comment on above: Performed By: #### B MP, CBC #### [facility] [address] [place] [address] [phone] [employer]inder Operator: Luis Solis MD Chloride [Moles/Vol] 110 mmol/L High 98-107 [facility] Comment on above: Performed By: #### B MP, CBC #### [facility] [address] [place] [address] 33698 [employer] Operator: Luis Solis MD CO2 [Moles/Vol] 25 mmol/L Normal 20-31 [facility] Comment on above: Performed By: #### B MP, CBC #### [facility] [address] [place] [address] 33482 [employer] Operator: Luis Solis MD Creatinine [Mass/Vol] 1.43 mg/dL High 0.50-0.90 [facility] Comment on above: Performed By: #### B FAITH, CBC #### [facility] [address] [place] [address] 58026 [employer] Operator: Luis Solis MD GFR/1.73 sq M.predicted among non-blacks MDRD (S/P/Bld) [Vol rate/Area] 38 mL/min/{1.73_m2} Low >60 [facility] Comment on above: Result Comment: Effective Aug [...] Performed By: #### B MP, CBC #### [facility] [employer] [address] [place] [address] 09690 [employer] Operator: Luis Solis MD Glucose [Mass/Vol] 124 mg/dL High 70-99 [facility] Comment on above: Performed By: #### B MP, CBC #### [facility] [address] [place] [address] 61678 [employer] Operator: Luis Solis MD Potassium [Moles/Vol] 4.7 mmol/L Normal 3.7-5.3 [facility] Comment on above: Performed By: #### B MP, CBC #### [facility] [address] [place] [address] 13779 [employer] Binder Operator: Luis Solis MD Sodium [Moles/Vol] 142 mmol/L Normal 135-144 [facility] Comment on above: Performed By: #### B FAITH, CBC #### [facility] [employer] [address] [place] [address] 50694 [employer] Operator: Luis Solis MD Urea nitrogen [Mass/Vol] 23 mg/dL Normal 8-23 [facility] Comment on above: Performed By: #### B MP, CBC #### [facility] [employer] [address] [place] [address] 42598 [employer] Binder Operator: Luis Solis MD CBCon 12-08-2022 Erythrocyte distribution width (RBC) [Ratio] 17.8 % High 11.8-14.4 [facility] Comment on above: Performed By: #### B MP, CBC #### [facility] [employer] [address] [place] [address] 56304 [employer] Operator: Luis Solis MD Hematocrit (Bld) [Volume fraction] 22.0 % Low 36.3-47.1 [facility] Comment on above: Performed By: #### B MP, CBC #### [facility] [employer] [address] [place] [address] 61729 [employer] Operator: Luis Solis MD Hemoglobin (Bld) [Mass/Vol] 6.6 g/dL Critically low 11.9-15.1 [facility] Comment on above: Performed By: #### B MP, CBC #### [address] [address] [employer] B[employer] Operator: Luis Solis MD MCH (RBC) [Entitic mass] 27.5 pg Normal 25.2-33.5 [facility] Comment on above: Performed By: #### B MP, CBC #### [facility] [employer] [address] [place] [address] 31667 [employer] B[employer] Operator: Luis Solis MD MCHC (RBC) [Mass/Vol] 30.0 g/dL Normal 28.4-34.8 [facility] Comment on above: Performed By: #### B MP, CBC #### [address] [address] [employer] B[employer] Operator: Luis Solis MD MCV (RBC) [Entitic vol] 91.7 fL Normal 82.6-102.9 [facility] Comment on above: Performed By: #### B MP, CBC #### [address] [address] [employer] Binder Operator: Luis Solis MD NRBC Automated 0.0 per 100 WBC Normal 0.0 [facility] Comment on above: Performed By: #### B MP, CBC #### [address] [address] [employer] B[employer] Operator: Luis Solis MD Platelet mean volume (Bld) [Entitic vol] 10.3 fL Normal 8.1-13.5 [facility] Comment on above: Performed By: #### B MP, CBC #### [address] [place] [place], [place] [phone] [employer]inder Operator: Luis Solis MD Platelets (Bld) [#/Vol] 250 10*3/uL Normal 138-453 [facility] Comment on above: Performed By: #### B MP, CBC #### [facility] [address] [place], [place] [phone] [employer] Binder Operator: Luis Solis MD RBC (Bld) [#/Vol] 2.40 10*6/uL Low 3.95-5.11 [facility] Comment on above: Performed By: #### B MP, CBC #### [facility] [address] [place] [address] [phone] [employer] B[employer] Operator: Luis Solis MD WBC (Bld) [#/Vol] 9.2 10*3/uL Normal 3.5-11.3 [facility] Comment on above: Performed By: #### B MP, CBC #### [facility] [address] [place] [address] [phone] [employer] B[employer] Operator: uLis Solis MD Hematocrit (Bld) [Volume fraction] 22.0 % Low 36.3 - 47.1 % [facility] Hemoglobin (Bld) [Mass/Vol] 6.6 g/dL Critically low 11.9 - 15.1 g/dL [facility] Interpretation and review of laboratory results Abnormal [facility] MCH (RBC) [Entitic mass] 27.5 pg 25.2 - 33.5 pg [facility] MCHC (RBC) [Mass/Vol] 30.0 g/dL 28.4 - 34.8 g/dL [facility] MCV (RBC) [Entitic vol] 91.7 fL 82.6 - 102.9 fL [facility] NRBC Automated 0.0 0.0 per 100 WBC [facility] Platelet distribution width (Bld) [Ratio] 17.8 % High 11.8 - 14.4 % [facility] Platelet mean volume (Bld) [Entitic vol] 10.3 fL 8.1 - 13.5 fL [facility] Platelets (Bld) [#/Vol] 250 10*3/uL [facility] RBC (Bld) [#/Vol] 2.40 10*6/uL Low 3.95 - 5.1 1 m/uL [facility] WBC (Bld) [#/Vol] 9.2 10*3/uL [facility] Hemoglobin and Hematocriton 12-08-2022 Hematocrit (Bld) [Volume fraction] 24.4 % Low 36.3 - 47.1 % [facility] Hemoglobin (Bld) [Mass/Vol] 7.4 g/dL Low 11.9 - 15.1 g/dL [facility] Interpretation and review of laboratory results Abnormal [facility] Hematocrit (Bld) [Volume fraction] 24.6 % Low 36.3 - 47.1 % [facility] Hemoglobin (Bld) [Mass/Vol] 7.7 g/dL Low 11.9 - 15.1 g/dL [facility] Interpretation and review of laboratory results Abnormal [facility] Hematocrit (Bld) [Volume fraction] 22.9 % Low 36.3 - 47.1 % [facility] Hemoglobin (Bld) [Mass/Vol] 7.6 g/dL Low 11.9 - 15.1 g/dL [facility] Interpretation and review of laboratory results Abnormal [facility] Hematocrit (Bld) [Volume fraction] 21.9 % Low 36.3 - 47.1 % [facility] Hemoglobin (Bld) [Mass/Vol] 6.5 g/dL Critically low 11.9 - 15.1 g/dL [facility] Interpretation and review of laboratory results Abnormal [facility] Hgb/Hcton 12-08-2022 Hematocrit (Bld) [Volume fraction] 24.4 % Low 36.3-47.1 [facility] Comment on above: Performed By: #### R EJEC, BMPX #### [facility] [address] [place] [address] 7[address]65 [employer] Binder Operator: Luis Solis MD Hemoglobin (Bld) [Mass/Vol] 7.4 g/dL Low 11.9-15.1 [facility] Comment on above: Performed By: #### R EJEC, BMPX #### [facility] [employer] [address] [place] [address]18 [employer]her [employer] Binder Operator: Luis Solis MD Hematocrit (Bld) [Volume fraction] 24.6 % Low 36.3-47.1 [facility] Comment on above: Performed By: #### R EJEC, BMPX #### [facility] [employer] [address] [place] [address] 12451 [employer] Operator: Luis Solis MD Hemoglobin (Bld) [Mass/Vol] 7.7 g/dL Low 11.9-15.1 [facility] Comment on above: Performed By: #### R EJEC, BMPX #### [facility] [employer] [address] [place] [address] 14630 [employer]her [employer] Binder Operator: Luis Solis MD Hematocrit (Bld) [Volume fraction] 22.9 % Low 36.3-47.1 [facility] Comment on above: Performed By: #### R EJEC, BMPX #### [facility] [address] [place] [address] [phone] [employer] B[employer] Operator: Luis Solis MD Hemoglobin (Bld) [Mass/Vol] 7.6 g/dL Low 11.9-15.1 [facility] Comment on above: Performed By: #### R EJEC, BMPX #### [facility] [address] [place] [address] [phone] [employer] B[employer] Operator: Luis Solis MD Hematocrit (Bld) [Volume fraction] 21.9 % Low 36.3-47.1 [facility] Comment on above: Performed By: #### H H #### [facility] [address] [place] [address] [phone] [employer] Binder Operator: Luis Solis MD Hemoglobin (Bld) [Mass/Vol] 6.5 g/dL Critically low 11.9-15.1 [facility] Comment on above: Performed By: #### H H #### [facility] [address] [place] [address] [phone] [employer] B[employer] Operator: Luis Solis MD Hematocrit (Bld) [Volume fraction] 23.7 % Low 36.3-47.1 [facility] Comment on above: Performed By: #### R CHITO, BMPX #### [facility] [address] [place] [address] 09364 [employer] B[employer] Operator: Luis Solis MD Hemoglobin (Bld) [Mass/Vol] 7.6 g/dL Low 11.9-15.1 [facility] Comment on above: Performed By: #### R CHITO, BMPX #### [facility] [address] [place] [address] [phone] [employer] B[employer] Operator: Luis Solis MD POC Glucose Fingerstickon Glucose [Mass/Vol] 129 mg/dL High 65 - 105 mg/dL [facility] Interpretation and review of laboratory results Abnormal [facility] Glucose [Mass/Vol] 138 mg/dL High 65 - 105 mg/dL [facility] Interpretation and review of laboratory results Abnormal [facility] Glucose [Mass/Vol] 164 mg/dL High 65 - 105 mg/dL [facility] Interpretation and review of laboratory results Abnormal [facility] SPECIMEN REJECTIONon 023 Ordered Test HH [facility] Reason for Rejection Unable to perform testing: Specimen clotted. [facility] Specimen source Nom (Unsp spec) .BLOOD [facility] Specimen Rejectionon 023 Reason for rejection Unable to perform testing: Specimen clotted. Normal [facility] Comment on above: Performed By: #### R EJEC, BMPX #### [facility] [address] [place], [place] [phone] [employer] Binder Operator: Luis Solis MD Source of sample .BLOOD Normal [facility] Comment on above: Performed By: #### R EJEC, BMPX #### [facility] [address] [place], [place] [phone] [employer] Binder Operator: Luis Solis MD Test ordered [facility] Comment on above: Performed By: #### R EJEC, BMPX #### [facility] [address] [place] [address] [employer]her And Binder Operator: Luis Solis MD Activated clotting timeon Activated Clotting Time 262 High [facility] Interpretation and review of laboratory results Abnormal [facility] [employer] CHLORIDE (POC)on 12-07-2022 Chloride [Moles/Vol] 107 mmol/L 98 - 107 mmol/L [facility] Catheterization and angiogra phy procedure details panelon 12-07-2022 [facility] [employer] Work Phone: Creatinine W/GFR Point of Ca reon 12-07-2022 Creatinine [Mass/Vol] 1.35 mg/dL High 0.51 - 1.19 mg/dL [facility] eGFR, POC 41 mL/min/1.73m 2 [facility] Comment on above: Effective Aug 17, 2022 [...] 23.7 % Low 36.3 - 47.1 % [facility] Hemoglobin (Bld) [Mass/Vol] 7.6 g/dL Low 11.9 - 15.1 g/dL [facility] Interpretation and review of laboratory results Abnormal [facility] Hematocrit (Bld) [Volume fraction] 24.9 % Low 36.3 - 47.1 % [facility] Hemoglobin (Bld) [Mass/Vol] 7.2 g/dL Low 11.9 - 15.1 g/dL [facility] Interpretation and review of laboratory results Abnormal [facility] Hemoglobin and hematocrit, b loodon 12-07-2022 Hematocrit (Bld) [Volume fraction] 20 % Low 36 - 46 % [facility] Hemoglobin (Bld) [Mass/Vol] 6.9 g/dL Critically low 12.0 - 16.0 g/dL [facility] Interpretation and review of laboratory results Abnormal [facility] Hematocrit (Bld) [Volume fraction] 30 % Low 36 - 46 % [facility] Hemoglobin (Bld) [Mass/Vol] 10.1 g/dL Low 12.0 - 16.0 g/dL [facility] Hgb/Hcton 12-07-2022 Hematocrit (Bld) [Volume fraction] 24.9 % Low 36.3-47.1 [facility] Comment on above: Performed By: #### R ZAINABEC, BMPX #### [facility] [address] [place] [phone] [employer] Binder Operator: Luis Solis MD Hemoglobin (Bld) [Mass/Vol] 7.2 g/dL Low 11.9-15.1 [facility] Comment on above: Performed By: #### R EJEC, BMPX #### [facility] [address] [place] [phone] [employer] B[employer] Operator: Luis Solis MD No Panel Informationon 12-07 Interpretation and review of laboratory results Abnormal [facility] POC Glucose Fingerstickon Glucose [Mass/Vol] 197 mg/dL High 65 - 105 mg/dL [facility] Interpretation and review of laboratory results Abnormal [facility] Glucose [Mass/Vol] 101 mg/dL 65 - 105 mg/dL [facility] POCT Glucoseon 12-07-2022 Glucose [Mass/Vol] 83 mg/dL 74 - 100 mg/dL [facility] POCT urea (BUN)on 12-07-2022 Urea nitrogen [Mass/Vol] 25 mg/dL 8 - 26 mg/dL [facility] POTASSIUM (POC)on 12-07-2022 Potassium [Moles/Vol] 4.2 mmol/L 3.5 - 4.5 mmol/L [facility] SODIUM (POC)on 12-07-2022 Sodium [Moles/Vol] 142 mmol/L 138 - 146 mmol/L [facility] VL DUP LOWER EXTREMITY ARTER IES RIGHTon 12-07-2022 Darnell Monique MD - 12/07/2022 [facility] Vascular Lower Extremities Arterial Duplex Procedure Patient Name CHRISTA Date of Study 12/07/2022 [facility] Date of 1945 Gender Female Age 77 year(s) Race Room Number 0501 Height: 65 inch, 165.1 cm Corporate ID # [id number] Weight: 208 pounds, 94.3 kg Patient BSA: 2.01 m^2 BMI: 34.61 kg/m^2 MR # [id number] Relay Dispatcher Whit Gan, T Interpreting Physician Darnell Monique [...] ! ! +---------++-----+----- +------+----+------++-- -+-----+------+----+--- ------ + [facility] [employer] Phone: Radiology Study observation (narrative) [facility] [employer] Phone: VL DUP LOWER EXTREMITY ARTER IES RIGHTOrdered By: Darnell Burk on 12-07-2022 [facility] Work Phone: CHLORIDE (POC)on 11-24-2022 Chloride [Moles/Vol] 105 mmol/L 98 - 107 mmol/L [facility] Creatinine W/GFR Point of Ca reon 11-24-2022 Creatinine [Mass/Vol] 1.5 mg/dL High 0.51 - 1.19 mg/dL [facility] eGFR, POC 36 mL/min/1.73m 2 [facility] Comment on above: Effective Aug 17, 2022 [...] 26 % Low 36 - 46 % [facility] Hemoglobin (Bld) [Mass/Vol] 8.7 g/dL Low 12.0 - 16.0 g/dL [facility] No Panel Informationon 11-24 Interpretation and review of laboratory results Abnormal [facility] POCT Glucoseon 11-24-2022 Glucose [Mass/Vol] 135 mg/dL High 74 - 100 mg/dL [facility] POCT urea (BUN)on 11-24-2022 POC BUN Result not available. 8 - 26 mg/dL B ON [facility] POTASSIUM (POC)on 11-24-2022 Potassium [Moles/Vol] 5.3 mmol/L High 3.5 - 4.5 mmol/L [facility] Platelet Counton 11-24-2022 Platelets (Bld) [#/Vol] 314 10*3/uL Normal 138-453 [facility] Comment on above: Performed By: #### P LT #### [facility] [address] [place] [phone] [employer] Binder Operator: Luis Solis MD Platelets (Bld) [#/Vol] 314 10*3/uL [facility] SODIUM (POC)on 11-24-2022 Sodium [Moles/Vol] 142 mmol/L 138 - 146 mmol/L [facility] Cult,Bloodon 10-03-2022 Cult,Blood Specimen Description .BLOOD Special Requests L AC 10ML Culture NO GROWTH 5 DAYS Report Status FINAL 10/03/2022 Normal [facility] Comment on above: Performed By: #### B C #### [facility] [employer] [address] [place] [phone] [employer] B[employer] Operator: Luis Solis MD Cult,Blood Specimen Description .BLOOD Special Requests R AC 10ML Culture NO GROWTH 5 DAYS Report Status FINAL 10/03/2022 Normal [facility] Comment on above: Performed By: #### H H, BMPX #### [facility] [address] [place] [address] [employer] Binder Operator: Luis Solis MD Basic Metab w/rfx MGon 09-30 Anion gap [Moles/Vol] 9 mmol/L Normal 9-17 [facility] Comment on above: Performed By: #### H H, BMPX #### [facility] [employer] [address] [place] [phone] [employer] B[employer] Operator: Luis Solis MD Calcium [Mass/Vol] 8.8 mg/dL Normal 8.6-10.4 [facility] Comment on above: Performed By: #### H H, BMPX #### [facility] [address] [place] [phone] [employer] B[employer] Operator: Luis Solis MD Chloride [Moles/Vol] 102 mmol/L Normal 98-107 [facility] Comment on above: Performed By: #### H H, BMPX #### [facility] [address] [place] [address] [employer] B[employer] Operator: Luis Solis MD CO2 [Moles/Vol] 28 mmol/L Normal 20-31 [facility] Comment on above: Performed By: #### H H, BMPX #### [facility] [address] [place] [phone] [employer] B[employer] Operator: Luis Solis MD Creatinine [Mass/Vol] 1.28 mg/dL High 0.50-0.90 [facility] Comment on above: Performed By: #### H H, BMPX #### [facility] [address] [place] [phone] [employer] B[employer] Operator: Luis Solis MD GFR/1.73 sq M.predicted among non-blacks MDRD (S/P/Bld) [Vol rate/Area] 43 mL/min/{1.73_m2} Low >60 [facility] Comment on above: Result Comment: Effective Aug [...] Performed By: #### H H, BMPX #### [facility] [employer] [address] [place] [address] [employer] Binder Operator: Luis Solis MD Glucose [Mass/Vol] 141 mg/dL High 70-99 [facility] Comment on above: Performed By: #### H H, BMPX #### [facility] [employer] [address] [place] [address]42 [employer] Binder Operator: Luis Solis MD Potassium [Moles/Vol] 4.0 mmol/L Normal 3.7-5.3 [facility] Comment on above: Performed By: #### H H, BMPX #### [facility] [address] [place] [address], [place] [phone] [employer] Operator: Luis Solis MD Sodium [Moles/Vol] 139 mmol/L Normal 135-144 [facility] Comment on above: Performed By: #### H H, BMPX #### [address] [phone] [employer] Operator: Luis Solis MD Urea nitrogen [Mass/Vol] 18 mg/dL Normal 8-23 [facility] Comment on above: Performed By: #### H H, BMPX #### [address] [phone] [employer]inder Operator: Luis Solis MD Cult,Urineon 09-30-2022 Cult,Urine Specimen Description .URINE,STRAIGHT CATHETER Culture ESCHERICHIA COLI >[id number] CFU/ML AEROCOCCUS URINAE 50 to 100,000 CFU/ML [...] Trimethoprim/Sulfa <=20 SUSCEPTIBLE Piperacillin/Tazobactam <=4 SUSCEPTIBLE Susceptible [facility] Comment on above: Performed By: #### H H, BMPX #### [address] [phone] [employer]inder Operator: uLis Solis MD APTTon 09-29-2022 aPTT Coag (Bld) [Time] 30.4 s Normal 20.5-30.5 [facility] Comment on above: Result Comment: IV Heparin Therapy Range: 48.6-77.8 Performed By: #### H Yo BMPX #### [facility] [address] [place] [address] [phone] [employer]inder Operator: Luis Solis MD Procalcitoninon 09-29-2022 Procalcitonin 0.23 ng/mL High <0.09 [facility] Comment on above: Result Comment: Suspected Sepsis: [...] entered into the Change in Procalcitonin Calculator ([email or web address]) to determine the patient's Mortality Risk Prognosis In healthy neonates, plasma Procalcitonin (PCT) concentrations increase gradually after , reaching peak values at about 24 hours of age then decrease to normal values below 0.5 ng/mL by 48-72 hours of age. Performed By: #### R CHITO BMPX #### [facility] [address] [place] [address] [phone] [employer] Operator: Luis Solis MD APTTon 09-28-2022 aPTT Coag (Bld) [Time] 110.7 s Critically high 20.5-30.5 [facility] Comment on above: Result Comment: IV Heparin Therapy Range: 48.6-77.8 Performed By: #### P TT #### [facility] [address] [place] [address] [phone] [employer] Operator: Luis Solis MD aPTT Coag (Bld) [Time] 24.1 s Normal 20.5-30.5 [facility] Comment on above: Result Comment: IV Heparin Therapy Range: 48.6-77.8 Performed By: #### H H, BMPX #### [facility] [employer] [address] [place] [address] [employer] Operator: Luis Solis MD aPTT Coag (Bld) [Time] 22.6 s Normal 20.5-30.5 [facility] Comment on above: Result Comment: IV Heparin Therapy Range: 48.6-77.8 Performed By: #### H H, BMPX #### [facility] [employer] [address] [place] [phone] [employer] Operator: Luis Solis MD Basic Metab w/rfx MGon 09-28 Anion gap [Moles/Vol] 10 mmol/L Normal 9-17 [facility] Comment on above: Performed By: #### R CHITO, BMPX #### [facility] [employer] [address] [place] [address] [employer] Operator: Luis Solis MD Calcium [Mass/Vol] 7.6 mg/dL Low 8.6-10.4 [facility] Comment on above: Performed By: #### R CHITO, BMPX #### [facility] [employer] [address] [place] [phone] [employer] Operator: Luis Solis MD Chloride [Moles/Vol] 107 mmol/L Normal 98-107 [facility] Comment on above: Performed By: #### R EJEC, BMPX #### [facility] [employer] [address] [place] [phone] [employer] Operator: Luis Solis MD CO2 [Moles/Vol] 23 mmol/L Normal 20-31 [facility] Comment on above: Performed By: #### R EJEC, BMPX #### [facility] [employer] [address] [place] [address] [phone] [employer]inder Operator: Luis Solis MD Creatinine [Mass/Vol] 1.33 mg/dL High 0.50-0.90 [facility] Comment on above: Performed By: #### R CHITO BMPX #### [facility] [employer] [address] [place] [phone] [employer] Operator: Luis Solis MD GFR/1.73 sq M.predicted among non-blacks MDRD (S/P/Bld) [Vol rate/Area] 41 mL/min/{1.73_m2} Low >60 [facility] Comment on above: Result Comment: Effective Aug [...] Performed By: #### R CHITO BMPX #### [facility] [employer] [address] [place] [address] [phone] [employer] Operator: Luis Solis MD Glucose [Mass/Vol] 243 mg/dL High 70-99 [facility] Comment on above: Performed By: #### Jeff DALE BMPX #### [facility] [employer] [address] [place] [address] [phone] [employer] Operator: Luis Solis MD Potassium [Moles/Vol] 4.5 mmol/L Normal 3.7-5.3 [facility] Comment on above: Performed By: #### R CHITO BMPX #### [facility] [employer] [address] [place] [address]40 [employer] Operator: Luis Solis MD Sodium [Moles/Vol] 140 mmol/L Normal 135-144 [facility] Comment on above: Performed By: #### R CHITO BMPX #### [address] [address] [employer] Operator: Luis Solis MD Urea nitrogen [Mass/Vol] 21 mg/dL Normal 8-23 [facility] Comment on above: Performed By: #### Jeff DALE BMPX #### [address] [address] [employer] Operator: Luis Solis MD Brain Natri. Peptideon 09-28 Natriuretic peptide B (Bld) [Mass/Vol] 5275 pg/mL High <300 [facility] Comment on above: Result Comment: An age-independent cutoff point of 300 pg/ml has a 98% negative predictive value excluding acute heart failure. Performed By: #### Yo Ram BMPX #### [address] [address] [employer] Operator: Luis Solis MD C-Reactive Proteinon 022 CRP [Mass/Vol] 48.0 mg/L High 0.0-5.0 [facility] Comment on above: Performed By: #### Jeff DALE BMPX #### [address] [address] [employer]inder Operator: Luis Solis MD CBC with Diffon 09-28-2022 Abs. Basophil 0.06 k/uL Normal 0.00-0.20 [facility] Comment on above: Performed By: #### H H, BMPX #### [address] [address] [employer]inder Operator: Luis Solis MD Abs.Imm.Granulocyte 0.16 k/uL Normal 0.00-0.30 [facility] Comment on above: Performed By: #### H Yo, BMPX #### [facility] [employer] [address] [place] [address]14 [employer]inder Operator: Luis Solis MD Abs.Neutrophil (Seg) 10.78 k/uL High 1.50-8.10 [facility] Comment on above: Performed By: #### H H, BMPX #### [address] [address] [employer] Operator: Luis Solis MD Basophils/100 WBC (Bld) 1 % Normal 0-2 [facility] Comment on above: Performed By: #### H H, BMPX #### [address] [address] [employer] Operator: Luis Solis MD Eosinophils (Bld) [#/Vol] 0.20 10*3/uL Normal 0.00-0.44 [facility] Comment on above: Performed By: #### H H, BMPX #### [address] [address] [employer] Operator: Luis Solis MD Eosinophils/100 WBC (Bld) 2 % Normal 1-4 [facility] Comment on above: Performed By: #### H H, BMPX #### [address] [address] [employer] Operator: Luis Solis MD Erythrocyte distribution width (RBC) [Ratio] 16.7 % High 11.8-14.4 [facility] Comment on above: Performed By: #### H H, BMPX #### [address] [address] [employer] Operator: Lius Solis MD Hematocrit (Bld) [Volume fraction] 27.2 % Low 36.3-47.1 [facility] Comment on above: Performed By: #### H H, BMPX #### [facility] [employer] [address] [place] [address] [employer] Operator: Luis Solis MD Hemoglobin (Bld) [Mass/Vol] 8.1 g/dL Low 11.9-15.1 [facility] Comment on above: Performed By: #### H H, BMPX #### [address] [address] [employer] Operator: Luis Solis MD Immature granulocytes/100 WBC (Bld) 1 % High 0 [facility] Comment on above: Performed By: #### H H, BMPX #### [address] [address] [employer] Operator: Luis Solis MD Lymphocytes (Bld) [#/Vol] 0.74 10*3/uL Low 1.10-3.70 [facility] Comment on above: Performed By: #### H H, BMPX #### [address] [address] [employer] Operator: Luis Solis MD Lymphocytes/100 WBC (Bld) 6 % Low 24-43 [facility] Comment on above: Performed By: #### H H, BMPX #### [address] [address] [employer] Operator: Luis Solis MD MCH (RBC) [Entitic mass] 26.9 pg Normal 25.2-33.5 [facility] Comment on above: Performed By: #### H H, BMPX #### [address] [address] [employer] Operator: Luis Solis MD MCHC (RBC) [Mass/Vol] 29.8 g/dL Normal 28.4-34.8 [facility] Comment on above: Performed By: #### H H, BMPX #### [address] [address] [employer] Operator: Luis Solis MD MCV (RBC) [Entitic vol] 90.4 fL Normal 82.6-102.9 [facility] Comment on above: Performed By: #### H H, BMPX #### [address] [address] [employer] Operator: Luis Solis MD Monocytes (Bld) [#/Vol] 0.78 10*3/uL Normal 0.10-1.20 [facility] Comment on above: Performed By: #### H H, BMPX #### [address] [address] [employer] Operator: Luis Solis MD Monocytes/100 WBC (Bld) 6 % Normal 3-12 [facility] Comment on above: Performed By: #### H H, BMPX #### [address] [address] [employer] Operator: Luis Solis MD Neutrophil (Seg) 84 % High 36-65 [facility] Comment on above: Performed By: #### H H, BMPX #### [address] [address] [employer] Operator: Luis Solis MD NRBC Automated 0.2 per 100 WBC High 0.0 [facility] Comment on above: Performed By: #### H H, BMPX #### [address] [address] [employer] Operator: Luis Solis MD Platelet mean volume (Bld) [Entitic vol] 9.9 fL Normal 8.1-13.5 [facility] Comment on above: Performed By: #### H H, BMPX #### [facility] [employer] [address] [place] [address] [employer] Operator: Luis Solis MD Platelets (Bld) [#/Vol] 391 10*3/uL Normal 138-453 [facility] Comment on above: Performed By: #### H H, BMPX #### [facility] [employer] [address] [place] [address] [employer] Operator: Luis Solis MD RBC (Bld) [#/Vol] 3.01 10*6/uL Low 3.95-5.11 [facility] Comment on above: Performed By: #### H H, BMPX #### [facility] [place] [address] [employer] Operator: Luis Solis MD RBC morphology finding Nom (Bld) ANISOCYTOSIS PRESENT Normal [facility] Comment on above: Performed By: #### H H, BMPX #### [facility] [employer] [address] [place] [address] [employer] Operator: Luis Solis MD WBC (Bld) [#/Vol] 12.7 10*3/uL High 3.5-11.3 [facility] Comment on above: Performed By: #### H H, BMPX #### [facility] [employer] [address] [place] [address] [employer] Binder Operator: Luis Solis MD CT CHEST PULMONARY EMBOLISM [...] COMPARISON: None HISTORY: ORDERING SYSTEM PROVIDED HISTORY: tachlucy hypoxia TECHNOLOGIST PROVIDED HISTORY: Tachy hypoxia Decision Support Exception - unselect if not a suspected or confirmed emergency medical condition->Emergency Medical Condition (MA) Reason for Exam: tachy, hypoxia FINDINGS: Pulmonary Arteries: No evidence of [...] Matthew Chong MD 09/28/22 Final result Normal [facility] Comp Metabolic Profon 2021 Albumin [Mass/Vol] 3.5 g/dL Normal 3.5-5.2 [facility] Comment on above: Performed By: #### H H, BMPX #### [facility] [address] [place] [address] [employer] Operator: Luis Solis MD Albumin/Glob Ratio 0.9 Low 1.0-2.5 [facility] Comment on above: Performed By: #### H H, BMPX #### [facility] [address] [place] [address] [employer] Operator: Luis Solis MD Alkaline Phos 104 U/L Normal 35-104 [facility] Comment on above: Performed By: #### H H, BMPX #### [address] [address] [employer] Operator: Luis Solis MD ALT [Catalytic activity/Vol] 7 U/L Normal 5-33 [facility] Comment on above: Performed By: #### H H, BMPX #### [address] [address] [employer] Operator: Luis Solis MD Anion gap [Moles/Vol] 13 mmol/L Normal 9-17 [facility] Comment on above: Performed By: #### H H, BMPX #### [address] [address] [employer] Operator: Luis Solis MD AST [Catalytic activity/Vol] 15 U/L Normal <32 [facility] Comment on above: Performed By: #### H H, BMPX #### [address] [address] [employer] Operator: Luis Solis MD Bilirubin [Mass/Vol] 0.5 mg/dL Normal 0.3-1.2 [facility] Comment on above: Performed By: #### H H, BMPX #### [address] [address] [employer] Operator: Luis Solis MD Calcium [Mass/Vol] 8.5 mg/dL Low 8.6-10.4 [facility] Comment on above: Performed By: #### H H, BMPX #### [facility] [employer] [address] [place] [address] [employer] Operator: Luis Solis MD Chloride [Moles/Vol] 102 mmol/L Normal 98-107 [facility] Comment on above: Performed By: #### H H, BMPX #### [facility] [employer] [facility] [place] [address] [employer] Operator: Luis Solis MD CO2 [Moles/Vol] 24 mmol/L Normal 20-31 [facility] Comment on above: Performed By: #### H H, BMPX #### [facility] [employer] [address] [place] [address] [employer]inder Operator: Luis Solis MD Creatinine [Mass/Vol] 1.62 mg/dL High 0.50-0.90 [facility] Comment on above: Performed By: #### H H, BMPX #### [facility] [employer] [address] [place] [address] [employer] Operator: Luis Solis MD GFR/1.73 sq M.predicted among non-blacks MDRD (S/P/Bld) [Vol rate/Area] 33 mL/min/{1.73_m2} Low >60 [facility] Comment on above: Result Comment: Effective Aug [...] Performed By: #### H H, BMPX #### [facility] [employer] [address] [place] [address] [employer] Operator: Luis Solis MD Glucose [Mass/Vol] 272 mg/dL High 70-99 [facility] Comment on above: Performed By: #### H H, BMPX #### [facility] [employer] [address] [place] [address] [employer] Operator: Luis Solis MD Potassium [Moles/Vol] 4.4 mmol/L Normal 3.7-5.3 [facility] Comment on above: Performed By: #### H H, BMPX #### [facility] [address] [place] [address] [employer] Operator: Luis Solis MD Protein [Mass/Vol] 7.3 g/dL Normal 6.4-8.3 [facility] Comment on above: Performed By: #### H H, BMPX #### [facility] [employer] [address] [place] [address] [employer] Operator: Luis Solis MD Sodium [Moles/Vol] 139 mmol/L Normal 135-144 [facility] Comment on above: Performed By: #### H H, BMPX #### [facility] [employer] [address] [place] [address] [employer] Operator: Luis Solis MD Urea nitrogen [Mass/Vol] 22 mg/dL Normal 8-23 [facility] Comment on above: Performed By: #### H H, BMPX #### [facility] [address] [place] [address] [employer] Operator: Luis Solis MD Lactate, Sepsison 09-28-2022 Lactic Acid,Sep Wbld 0.6 mmol/L Normal 0.5-1.9 [facility] Comment on above: Performed By: #### R EJEC, BMPX #### [facility] [employer] [address] [place] [address] [employer]inder Operator: Luis Solis MD Lactic Acid,Sep Wbld 1.5 mmol/L Normal 0.5-1.9 [facility] Comment on above: Performed By: #### H H, BMPX #### [facility] [employer] [address] [place] [address] [employer]inder Operator: Luis Solis MD Legionella Ag, Uron 09-28-20 Legionella Ag, Ur Negative Normal NEG [facility] Comment on above: Result Comment: L. p neumophila serogroup 1 antigen not detected. A negative result does not exclude infection with Leginella pnemophila serogroup 1 nor does it rule out other microbial-caused respiratory infections of disease caused by other serogroups of Legionella pneumophila. Performed By: #### H H, BMPX #### [facility] [address] [place] [address] [phone] [employer]inder Operator: Luis Solis MD PTon 09-28-2022 INR Coag (PPP) [Relative time] 1.1 {INR} Normal [facility] Comment on above: Result Comment: Therapeutic Range: Moderate Anticoagulant Intensity: INR = 2.0-3.0 High Anticoagulant Intensity: INR = 2.5-3.5 Performed By: #### H H, BMPX #### [facility] [employer] [address] [place] [address] [phone] [employer] Operator: Luis Solis MD PT Coag (PPP) [Time] 11.8 s Normal 9.1-12.3 [facility] Comment on above: Performed By: #### H H, BMPX #### [facility] [address] [place] [address] [phone] [employer] Operator: Luis Solis MD [id number] 09-28-2022 SARS-CoV-2 (COVID-19) RNA SIRI+probe Ql (Unsp spec) Not detected Normal NOTDET [facility] Comment on above: Result Comment: Rapid NAAT: [...] management decisions. Fact sheet for Healthcare Providers: https://www.fda.gov/media/378366/download Fact sheet for Patients: https://www.fda.gov/media/416514/download Methodology: Isothermal Nucleic Acid Amplification Performed By: #### Jeff DALE, BMPX #### [facility] [place] [address] [employer] Operator: Luis Solis MD Sedimentation Rateon 022 Sedimentation Rate 61 mm/Hr High 0-30 [facility] Comment on above: Performed By: #### Jeff DALE, BMPX #### [facility] [employer] [address] [place] [address] [employer] Operator: Luis Solis MD Strep pneum Ag,CSF/Uron 09-15 Strep pneum Ag Negative Normal [facility] Comment on above: Result Comment: Stre p pneumoniae antigen not detected Performed By: #### Jeff DALE, BMPX #### [facility] [employer] [address] [place] [address] [employer] Operator: Luis Solis MD Strep pneu Ag Source .URINE Normal [facility] Comment on above: Performed By: #### Jeff DALE, BMPX #### [address] [address] [employer] Operator: Luis Solis MD Troponinon 09-28-2022 Troponin, High Sens 222 ng/L Critically high 0-14 [facility] Comment on above: Result Comment: High Sensitivity Troponin values cannot be compared with other Troponin methodologies. Patients with high levels of Biotin oral intake (i.e >5mg/day) may have falsely decreased Troponin levels. Samples collected within 8 hours of biotin intake may require additional information for diagnosis. Performed By: #### Jeff DALE, BMPX #### [address] [address] [employer] Operator: Luis Solis MD Troponin, High Sens 219 ng/L Critically high 0-14 [facility] Comment on above: Result Comment: High Sensitivity Troponin values cannot be compared with other Troponin methodologies. Patients with high levels of Biotin oral intake (i.e >5mg/day) may have falsely decreased Troponin levels. Samples collected within 8 hours of biotin intake may require additional information for diagnosis. Performed By: #### H H, BMPX #### [facility] [address] [place] [address] [employer] Operator: Luis Solis MD Type + Screenon 09-28-2022 Type + Screen Sample Expiration 10/01/2022,2359 Arm Band Number BE [id number] ABO/Rh(D) O NEGATIVE Antibody Screen NEGATIVE Normal [facility] Comment on above: Performed By: #### H H, BMPX #### [facility] [address] [place] [address] [employer] Operator: Luis Solis MD Urinalysis w/ Microon 2021 Bacteria MANY Abnormal NONE [facility] Comment on above: Performed By: #### H H, BMPX #### [facility] [address] [place] [address] [employer] Operator: Luis Solis MD Bilirubin, SemiQt,Ur Negative Normal NEG [facility] Comment on above: Performed By: #### H H, BMPX #### [facility] [address] [place] [address] [employer] Operator: Luis Solis MD Blood, Urine Negative Normal NEG [facility] Comment on above: Performed By: #### H H, BMPX #### [facility] [address] [place] [address] [employer] Operator: Luis Solis MD Casts 0 TO 2 HYALINE Normal 0-8 [facility] Comment on above: Result Comment: Refe rence range defined for non-centrifuged specimen. Performed By: #### H H, BMPX #### [facility] [address] [place] [address] [employer] Operator: Luis Solis MD Clarity (U) Cloudy Abnormal CLEAR [facility] Comment on above: Performed By: #### H H, BMPX #### [address] [address] [employer] Operator: Luis Solis MD Color (U) Yellow Normal YEL [facility] Comment on above: Performed By: #### H H, BMPX #### [address] [address] [employer] Operator: Luis Solis MD Epithelial cells LM Ql (Urine sed) 5 TO 10 Normal 0-5 [facility] Comment on above: Performed By: #### H H, BMPX #### [address] [address] [employer] Operator: Luis Solis MD Glucose Ql (U) 2+ Abnormal NEG [facility] Comment on above: Performed By: #### H H, BMPX #### [address] [address] [employer] Operator: Luis Solis MD Ketones Ql (U) TRACE Abnormal NEG [facility] Comment on above: Performed By: #### H H, BMPX #### [address] [address] [employer]inder Operator: Luis Solis MD Leukocyte esterase Test strip Ql (U) TRACE Abnormal NEG [facility] Comment on above: Performed By: #### H H, BMPX #### [address] [address] [employer] Operator: Luis Solis MD Nitrite,Ur Negative Normal NEG [facility] Comment on above: Performed By: #### H H, BMPX #### [address] [address] [employer] Operator: Luis Solis MD PH,Ur 5.5 Normal 5.0-8.0 [facility] Comment on above: Performed By: #### H H, BMPX #### [address] [address] [employer] Operator: Luis Solis MD Protein Ql (U) TRACE Abnormal NEG [facility] Comment on above: Performed By: #### H H, BMPX #### [address] [address] [employer] Operator: Luis Solis MD Spec. Clio,Ur 1.018 Normal 1.005-1.030 [facility] Comment on above: Performed By: #### H H, BMPX #### [address] [address] [employer] Operator: Luis Solis MD Urine RBC's 0 TO 2 Normal 0-4 [facility] Comment on above: Result Comment: Refe rence range defined for non-centrifuged specimen. Performed By: #### H H, BMPX #### [address] [address] [employer] Operator: Luis Solis MD Urine WBC's 10 TO 20 Normal 0-5 [facility] Comment on above: Performed By: #### H H, BMPX #### [address] [address] [employer] Operator: Lusi Solis MD Urobilinogen,Ur Normal Normal NORM [facility] Comment on above: Performed By: #### H H, BMPX #### [address] [address] [employer] Operator: Luis Solis MD XR CHEST PORTABLEon 09-28-20 [...] Garth Herr MD 09/28/22 Final result Normal [facility] CT BRAIN WO CONTRASTon 03-31 CT BRAIN WO CONTRAST [facility] Department of Radiology [address] [place] [address] ===== Patient Name: CUCA GOODWIN : 1945 Sex: F Age: Race: White Pt. 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 Electronically signed: Mari Chavez. Transcribed by: [email or web address], User Resident: Electronically Signed by: MARI CHAVEZ @ 03/31/2022 03:46 PM Normal [facility] Comment on above: Order Comment: hydro cephalus s/p svp marketing shunt USER ACCEPTANCE TESTER SHUNT SERIESon 03-31-2022 USER ACCEPTANCE TESTER SHUNT SERIES [facility] Department of Radiology [address] [place] [id number] ===== Patient Name: CUCA GOODWIN : [...] , Ordering Provider - A NIELS MSN FINISHER HAND , Exam: USER ACCEPTANCE TESTER SHUNT SERIES ===== USER ACCEPTANCE TESTER SHUNT SERIES HISTORY: Shunt evaluation. COMPARISON: 09/17/2020. [...] described. Electronically signed: Lam Chew. Transcribed by: [email or web address], User Resident: Electronically Signed by: LAM CHEW @ 04/03/2022 08:50 AM Normal [facility] Comment on above: Order Comment: , .br E.brEr/o kinking or discontinuity of shunt tubing and do image perpendicularl to valve to check OP , .brr/o kinking or discontinuity of shunt tubing and do image perpendicularl to valve to check OP , , , Ordering Provider - Danielle BOWSER MSN FINISHER HAND , Lipid Profileon 03-26-2021 Cholesterol [Mass/Vol] 117 mg/dL Normal <200 [facility] Comment on above: Result Comment: Cholesterol Guidelines: <200 Desirable 200-240 Borderline >240 Undesirable Performed By: #### L IPR #### [address] [place], [place] [id number] Crusher And Binder Operator: Lusi Solis MD Cholesterol in HDL [Mass/Vol] 39 mg/dL Low >40 [facility] Comment on above: Result Comment: HDL Guidelines: <40 Undesirable 40-59 Borderline >59 Desirable Performed By: #### L IPR #### [address] [place], [place] [id number] Crusher And Binder Operator: Luis Solis MD Cholesterol in LDL [Mass/Vol] 62 mg/dL Normal 0-130 [facility] Comment on above: Result Comment: LDL Guidelines: <100 Desirable 100-129 Near to/above Desirable 130-159 Borderline >159 Undesirable Direct (measured) LDL and calculated LDL are not interchangeable tests. Performed By: #### L IPR #### [address] [place] [address] Crusher And Binder Operator: Luis Solis MD Cholesterol.total/C holesterol in HDL [Mass ratio] 3.0 {ratio} Normal <5 [facility] Comment on above: Performed By: #### L IPR #### [address] [address] Crusher And Binder Operator: Luis Solis MD Triglyceride [Mass/Vol] 79 mg/dL Normal <150 [facility] Comment on above: Result Comment: Triglyceride Guidelines: <150 Desirable 150-199 Borderline 200-499 High >499 Very high Based on AHA Guidelines for fasting triglyceride, August 2012. Performed By: #### L IPR #### [address] [address] Crusher And Binder Operator: Luis Solis MD Cholesterol,VLDL NOT REPORTED Normal 12-14 [facility] Comment on above: Performed By: #### L IPR #### [address] [address] Crusher And Binder Operator: Luis Solis MD Uric Acidon 8 Urate [Mass/Vol] 6.8 mg/dL High 2.4-5.7 [facility] Comment on above: Performed By: #### U RI #### [facility] [address] [place] [address] Crusher And Binder Operator: Giovanny Carpenter MD Uric AcidOrdered By: Lakeshia Farias on 03-24-2021 Interpretation and review of laboratory results Abnormal [facility] Work Phone: Urate [Mass/Vol] 6.8 mg/dL High 2.4 - 5.7 mg/dL [employer] Work Phone: CBC AUTO DIFFon 03-20-2021 BASO # 0.0 103/ul Normal 0.0-0.1 [facility] Comment on above: Performed By: #### C BC #### [facility] [address] [place], [place] [address] Ghulam Amy Basophils/100 WBC (Bld) 0.4 % Normal 0.2-2.0 [facility] Comment on above: Performed By: #### C BC #### [facility] [address] [place] [address] Ghulam Amy EO # 0.4 103/ul Normal 0.0-0.7 [facility] Comment on above: Performed By: #### C BC #### [facility] [address] [place] [address] Ghulam Amy Eosinophils/100 WBC (Bld) 4.3 % Normal 0.9-7.0 [facility] Comment on above: Performed By: #### C BC #### [facility] [address] [place] [address] Ghulam Amy Erythrocyte distribution width (RBC) [Ratio] 15.9 % Critically high 11.0-15.0 [facility] Comment on above: Performed By: #### C BC #### [facility] [address] [place] [phone] Ghulam Amy Hematocrit (Bld) [Volume fraction] 28.5 % Critically low 36.0-48.0 [facility] Comment on above: Performed By: #### C BC #### [facility] [address] [place] [phone] Ghulam Amy Hemoglobin (Bld) [Mass/Vol] 8.9 g/dL Critically low 12.0-16.0 [facility] Comment on above: Performed By: #### C BC #### [facility] [address] [place] [phone] Ghulam Amy IG # 0.04 10e3/ul Critically high 0.00-0.03 [facility] Comment on above: Performed By: #### C BC #### [facility] [address] [place], [place] [phone] Ghulamgabriela Reyes IG % 0.4 % Normal 0.0-0.5 [facility] Comment on above: Performed By: #### C BC #### [facility] [address] [place], [place] [phone] Ghulamgabriela Reyes LYMPH # 2.2 103/ul Normal 1.2-3.8 [facility] Comment on above: Performed By: #### C BC #### [facility] [address] [place], [place] [phone] Ghulam Reyes Lymphocytes/100 WBC (Bld) 21.9 % Normal 20.5-60.0 [facility] Comment on above: Performed By: #### C BC #### [facility] [address] [place] [address] Ghulam Reyes MANUAL DIFF REQ NO Normal [facility] Comment on above: Performed By: #### C BC #### [facility] [address] [place] [address] Ghulam Reyes MCH (RBC) [Entitic mass] 27.1 pg Normal 26.7-34.0 [facility] Comment on above: Performed By: #### C BC #### [facility] [address] [place] [address] Ghulam Reyes MCHC (RBC) [Mass/Vol] 31.2 g/dL Normal 29.9-35.2 [facility] Comment on above: Performed By: #### C BC #### [facility] [address] [place] [address] Ghulamgabriela Reyes MCV (RBC) [Entitic vol] 86.9 fL Normal 81.0-99.0 [facility] Comment on above: Performed By: #### C BC #### [facility] [address] [place], [place] [phone] Ghulam Amy MONO # 1.0 103/ul Critically high 0.3-0.8 [facility] Comment on above: Performed By: #### C BC #### [facility] [address] [place] [address] Ghulam Reyes Monocytes/100 WBC (Bld) 10.1 % Normal 1.7-12.0 [facility] Comment on above: Performed By: #### C BC #### [facility] [address] [place] [address] Ghulam Reyes NEUT # 6.2 103/ul Normal 1.4-6.5 [facility] Comment on above: Performed By: #### C BC #### [facility] [address] [place] [address] Ghulam Reyes Neutrophils/100 WBC (Bld) 62.9 % Normal 43.0-75.0 [facility] Comment on above: Performed By: #### C BC #### [facility] [address] [place] [address] Ghulamgabriela Reyes Platelet mean volume (Bld) [Entitic vol] 10.2 fL Normal 9.5-13.5 [facility] Comment on above: Performed By: #### C BC #### [facility] [address] [place] [address] Ghulamgabriela Sotoen PLT 289 103/ul Normal 150-450 [facility] Comment on above: Performed By: #### C BC #### [facility] [address] [place] [address] Ghulamgabriela Sotoen RBC 3.28 106/ul Critically low 4.20-5.40 [facility] Comment on above: Performed By: #### C BC #### [facility] [address] [place] [address] Ghulamgabriela Sotoen WBC 9.9 103/ul Normal 4.0-11.0 [facility] Comment on above: Performed By: #### C BC #### [facility] [address] [place], [place] [phone] Ghulam Reyes PROF 14(COMP METB)on 021 Albumin [Mass/Vol] 2.8 g/dL Critically low 3.5-5.0 [facility] Comment on above: Performed By: #### C MP #### [facility] [address] [place], [place] [address] Ghulam Amy Albumin/Globulin [Mass ratio] 0.6 {ratio} Normal [facility] Comment on above: Performed By: #### C MP #### [facility] [address] [place], [place] [address] Ghulam Amy ALP [Catalytic activity/Vol] 95 U/L Normal 38-126 [facility] Comment on above: Performed By: #### C MP #### [facility] [address] [place], [place] [address] Ghulam Amy ALT [Catalytic activity/Vol] 16 U/L Normal 9-52 [facility] Comment on above: Performed By: #### C MP #### [facility] [address] [place], [place] [address] Ghulam Amy Anion gap [Moles/Vol] 11.6 mmol/L Normal [facility] Comment on above: Performed By: #### C MP #### [facility] [address] [place], [place] [phone] Ghulam Amy AST [Catalytic activity/Vol] 13 U/L Critically low 14-36 [facility] Comment on above: Performed By: #### C MP #### [facility] [address] [place] [address] Ghulam Amy Bilirubin [Mass/Vol] 0.4 mg/dL Normal 0.2-1.3 [facility] Comment on above: Performed By: #### C MP #### [facility] [address] [place] [address] Ghulam Amy Calcium [Mass/Vol] 8.9 mg/dL Normal 8.4-10.2 [facility] Comment on above: Performed By: #### C MP #### [facility] [address] [place] [address] Ghulam Amy Chloride [Moles/Vol] 103 mmol/L Normal 98-107 [facility] Comment on above: Performed By: #### C MP #### [facility] [address] [place], [place] [address] Ghulam Amy CO2 [Moles/Vol] 27.4 mmol/L Normal 22.0-30.0 [facility] Comment on above: Performed By: #### C MP #### [facility] [address] [place], [place] [address] Ghulam Amy Creatinine [Mass/Vol] 1.86 mg/dL Critically high 0.52-1.04 [facility] Comment on above: Performed By: #### C MP #### [facility] [address] [place], [place] [address] Ghulam Amy EGFR-AF MONTENEGRIN 32 mL/min/1.73m2 Critically low >=60 [facility] Comment on above: Performed By: #### C MP #### [facility] [address] [place] [phone] Ghulam Amy EGFR-NON AF MONTENEGRIN 26 mL/min/1.73m2 Critically low >=60 [facility] Comment on above: Performed By: #### C MP #### [facility] [address] [place] [address] Ghulam Amy Globulin (S) [Mass/Vol] 4.6 g/dL Normal [facility] Comment on above: Performed By: #### C MP #### [facility] [address] [place] [phone] Ghulam Amy Glucose [Mass/Vol] 174 mg/dL Critically high 74-106 [facility] Comment on above: Performed By: #### C MP #### [facility] [address] [place] [phone] Ghulam Amy Potassium [Moles/Vol] 4.0 mmol/L Normal 3.4-5.0 [facility] Comment on above: Performed By: #### C MP #### [facility] [address] [place] [phone] Ghulam Amy Protein [Mass/Vol] 7.4 g/dL Normal 6.1-8.2 [facility] Comment on above: Performed By: #### C MP #### [facility] [address] [place] [phone] Ghulam Amy Sodium [Moles/Vol] 138 mmol/L Normal 137-145 [facility] Comment on above: Performed By: #### C MP #### [facility] [address] [place] [address] Ghulam Amy Urea nitrogen [Mass/Vol] 24.0 mg/dL Critically high 7.0-17.0 [facility] Comment on above: Performed By: #### C MP #### [facility] [address] [place] [address] Ghulam Amy Urea nitrogen/Creatinine [Mass ratio] 12.9 mg/mg Normal [facility] Comment on above: Performed By: #### C MP #### [facility] [address] [place] [address] Ghulam Amy RESPIRATORY PANEL PLUSon Adenovirus Not detected Normal NOT DETECTED [facility] Comment on above: Performed By: #### R SPLUS #### [facility] [address] [place] [address] Ghulam Amy B. Parapertusis Not detected Normal NOT DETECTED [facility] Comment on above: Performed By: #### R SPLUS #### [facility] [address] [place] [address] Ghulam Amy B. Pertussis Not detected Normal NOT DETECTED [facility] Comment on above: Performed By: #### R SPLUS #### [facility] [address] [place] [address] Ghulam Amy Chlamydia Pneumoniae Not detected Normal NOT DETECTED [facility] Comment on above: Performed By: #### R SPLUS #### [facility] [address] [place] [address] Ghulam Amy Coronavirus 229E Not detected Normal NOT DETECTED [facility] Comment on above: Performed By: #### R SPLUS #### [facility] [address] [place] [address] Ghulam Amy Coronavirus HKU1 Not detected Normal NOT DETECTED [facility] Comment on above: Performed By: #### R SPLUS #### [facility] [address] [place] [address] Ghulam Amy Coronavirus NL63 Not detected Normal NOT DETECTED [facility] Comment on above: Performed By: #### R SPLUS #### [facility] [address] [place] [address] Ghulam Amy Coronavirus OC43 Not detected Normal NOT DETECTED [facility] Comment on above: Performed By: #### R SPLUS #### [facility] [address] [place] [address] Ghulam Amy Influenza A H1 2009 Not detected Normal NOT DETECTED [facility] Comment on above: Performed By: #### R SPLUS #### [facility] [address] [place] [address] Ghulam Amy Influenza B Not detected Normal NOT DETECTED [facility] Comment on above: Performed By: #### R SPLUS #### [facility] [address] [place] [address] Ghulam Amy Metapneumovirus Not detected Normal NOT DETECTED [facility] Comment on above: Performed By: #### R SPLUS #### [facility] [address] [place] [address] Ghulam Amy Mycoplas. Pneumoniae Not detected Normal NOT DETECTED [facility] Comment on above: Performed By: #### R SPLUS #### [facility] [address] [place] [address] Ghulam Amy Parainfluenza 1 Not detected Normal NOT DETECTED [facility] Comment on above: Performed By: #### R SPLUS #### [facility] [address] [place] [address] Ghulam Amy Parainfluenza 2 Not detected Normal NOT DETECTED [facility] Comment on above: Performed By: #### R SPLUS #### [facility] [address] [place] [address] Ghulam Amy Parainfluenza 3 Not detected Normal NOT DETECTED [facility] Comment on above: Performed By: #### R SPLUS #### [facility] [address] [place] [address] Ghulam Amy Parainfluenza 4 Not detected Normal NOT DETECTED [facility] Comment on above: Performed By: #### R SPLUS #### [facility] [address] [place] [address] Ghulam Amy Rhino/Enterovirus Not detected Normal NOT DETECTED [facility] Comment on above: Performed By: #### R SPLUS #### [facility] [address] [place] [address] Ghulam Reyes RP2 Header 1 RESPIRATORY PANEL: VIRUSES Normal [facility] Comment on above: Performed By: #### R SPLUS #### [facility] [address] [place] [address] Ghulam Reyes RP2 Header 2 RESPIRATORY PANEL: BACTERIA Normal [facility] Comment on above: Performed By: #### R SPLUS #### [facility] [address] [place] [address] Ghulam Amy RP2 Header 4 EUA SEE BELOW Normal [facility] Comment on above: Result Comment: This test is not yet approved or cleared by the [place] FDA. When there are no FDA-approved or cleared tests available, and other criteria are met, FDA can make tests available under an emergency access mechanism called an Emergency Use Authorization (EUA). The EUA for this test is supported by the [place] of Health and Human Service?s (HHS?s) declaration [...] used). Performed By: #### R SPLUS #### [facility] [address] [place] [address] Ghulam Reyes RSV Not detected Normal NOT DETECTED [facility] Comment on above: Performed By: #### R SPLUS #### [facility] [address] [place] [address] Ghulam Reyes SARS-CoV-2 (COVID-19) RNA SIRI+probe Ql (Unsp spec) Not detected Normal NOT DETECTED [facility] Comment on above: Performed By: #### R SPLUS #### [facility] [address] [place] [address] Ghulam Reyes URIC ACID SERUMon 03-20-2021 Urate [Mass/Vol] 7.4 mg/dL Critically high 2.5-6.2 [facility] Comment on above: Performed By: #### U GIRISH #### [facility] [address] [place] [address] Ghulamgabriela Reyes CBC AUTO DIFFon 03-19-2021 BASO # 0.0 103/ul Normal 0.0-0.1 [facility] Comment on above: Performed By: #### C BC #### [facility] [address] [place] [address] Ghulamgabriela Reyes Basophils/100 WBC (Bld) 0.3 % Normal 0.2-2.0 [facility] Comment on above: Performed By: #### C BC #### [facility] [address] [place] [address] Ghulamgabriela Reyes EO # 0.1 103/ul Normal 0.0-0.7 [facility] Comment on above: Performed By: #### C BC #### [facility] [address] [place] [address] Ghulam Reyes Eosinophils/100 WBC (Bld) 0.9 % Normal 0.9-7.0 [facility] Comment on above: Performed By: #### C BC #### [facility] [address] [place] [address] Ghulamgabriela Reyes Erythrocyte distribution width (RBC) [Ratio] 15.5 % Critically high 11.0-15.0 [facility] Comment on above: Performed By: #### C BC #### [facility] [address] [place] [address] Ghulam Amy Hematocrit (Bld) [Volume fraction] 28.1 % Critically low 36.0-48.0 [facility] Comment on above: Performed By: #### C BC #### [facility] [address] [place] [address] Ghulam Amy Hemoglobin (Bld) [Mass/Vol] 8.9 g/dL Critically low 12.0-16.0 [facility] Comment on above: Performed By: #### C BC #### [facility] [address] [place] [address] Ghulamgabriela Reyes IG # 0.05 10e3/ul Critically high 0.00-0.03 [facility] Comment on above: Performed By: #### C BC #### [facility] [address] [place] [address] Ghulamgabriela Reyes IG % 0.5 % Normal 0.0-0.5 [facility] Comment on above: Performed By: #### C BC #### [facility] [address] [place] [address] Ghulamgabriela Reyes LYMPH # 1.9 103/ul Normal 1.2-3.8 [facility] Comment on above: Performed By: #### C BC #### [facility] [address] [place] [address] Ghulam Reyes Lymphocytes/100 WBC (Bld) 17.2 % Critically low 20.5-60.0 [facility] Comment on above: Performed By: #### C BC #### [facility] [address] [place] [address] Ghulam Reyes MANUAL DIFF REQ NO Normal [facility] Comment on above: Performed By: #### C BC #### [facility] [address] [place] [address] Ghulam Reyes MCH (RBC) [Entitic mass] 27.1 pg Normal 26.7-34.0 [facility] Comment on above: Performed By: #### C BC #### [facility] [address] [place] [address] Ghulam Reyes MCHC (RBC) [Mass/Vol] 31.7 g/dL Normal 29.9-35.2 [facility] Comment on above: Performed By: #### C BC #### [facility] [address] [place] [address] Ghulam Reyes MCV (RBC) [Entitic vol] 85.4 fL Normal 81.0-99.0 [facility] Comment on above: Performed By: #### C BC #### [facility] [address] [place] [address] Ghulam Amy MONO # 1.0 103/ul Critically high 0.3-0.8 [facility] Comment on above: Performed By: #### C BC #### [facility] [address] [place], [place] [address] Ghulam Sotoen Monocytes/100 WBC (Bld) 9.5 % Normal 1.7-12.0 [facility] Comment on above: Performed By: #### C BC #### [facility] [address] [place] [phone] Ghulam Sotoen NEUT # 7.7 103/ul Critically high 1.4-6.5 [facility] Comment on above: Performed By: #### C BC #### [facility] [address] [place] [phone] Ghulam Amy Neutrophils/100 WBC (Bld) 71.6 % Normal 43.0-75.0 [facility] Comment on above: Performed By: #### C BC #### [facility] [address] [place], [place] [phone] Ghulamgabriela Reyes Platelet mean volume (Bld) [Entitic vol] 10.1 fL Normal 9.5-13.5 [facility] Comment on above: Performed By: #### C BC #### [facility] [address] [place], [place] [phone] Ghulam Amy PLT 285 103/ul Normal 150-450 [facility] Comment on above: Performed By: #### C BC #### [facility] [address] [place], [place] [phone] Ghulam Amy RBC 3.29 106/ul Critically low 4.20-5.40 [facility] Comment on above: Performed By: #### C BC #### [facility] [address] [place], [place] [phone] Ghulam Amy WBC 10.7 103/ul Normal 4.0-11.0 [facility] Comment on above: Performed By: #### C BC #### [facility] [address] [place], [place] [phone] Ghulam Reyes MAGNESIUMon 03-19-2021 Magnesium [Mass/Vol] 1.9 mg/dL Normal 1.6-2.3 [facility] Comment on above: Performed By: #### M G ####[facility] [id number] [place], [place] [address]Nijnvh Karen POINT OF CARE GLUCOSEon Glucose [Mass/Vol] 68 mg/dL Critically low 74-106 [facility] Comment on above: Performed By: #### P OCGLUC #### [facility] [address] [place], [place] [address] Ghulam Amy Glucose [Mass/Vol] 91 mg/dL Normal 74-106 [facility] Comment on above: Performed By: #### P OCGLUC #### [facility] [address] [place] [id number] Ghulam Amy Glucose [Mass/Vol] 136 mg/dL Critically high 74-106 [facility] Comment on above: Performed By: #### P OCGLUC #### [facility] [address] [place] [address] Ghulam Amy PROF 14(COMP METB)on Albumin [Mass/Vol] 2.7 g/dL Critically low 3.5-5.0 [facility] Comment on above: Performed By: #### C MP #### [facility] [address] [place], [place] [id number] Ghulam Amy Albumin/Globulin [Mass ratio] 0.6 {ratio} Normal [facility] Comment on above: Performed By: #### C MP #### [facility] [address] [id number] Ghulam Amy ALP [Catalytic activity/Vol] 99 U/L Normal 38-126 [facility] Comment on above: Performed By: #### C MP #### [facility] [address] [place] [address] Ghulam Amy ALT [Catalytic activity/Vol] 14 U/L Normal 9-52 [facility] Comment on above: Performed By: #### C MP #### [facility] [address] [id number] Ghulam Amy Anion gap [Moles/Vol] 10.5 mmol/L Normal [facility] Comment on above: Performed By: #### C MP #### [facility] [address] [place], [place] [address] Ghulam Amy AST [Catalytic activity/Vol] 13 U/L Critically low 14-36 [facility] Comment on above: Performed By: #### C MP #### [facility] [address] [place], [place] [address] Ghulam Amy Bilirubin [Mass/Vol] 0.5 mg/dL Normal 0.2-1.3 [facility] Comment on above: Performed By: #### C MP #### [facility] [address] [phone] Ghulam Amy Calcium [Mass/Vol] 9.1 mg/dL Normal 8.4-10.2 [facility] Comment on above: Performed By: #### C MP #### [facility] [address] [phone] Ghulam Amy Chloride [Moles/Vol] 104 mmol/L Normal 98-107 [facility] Comment on above: Performed By: #### C MP #### [facility] [address] [phone] Ghulam Amy CO2 [Moles/Vol] 27.2 mmol/L Normal 22.0-30.0 [facility] Comment on above: Performed By: #### C MP #### [facility] [address] [phone] Ghulma Amy Creatinine [Mass/Vol] 1.57 mg/dL Critically high 0.52-1.04 [facility] Comment on above: Performed By: #### C MP #### [facility] [address] [id number] Ghulam Amy EGFR-AF MONTENEGRIN 39 mL/min/1.73m2 Critically low >=60 [facility] Comment on above: Performed By: #### C MP #### [facility] [address] [phone] Ghulam Amy EGFR-NON AF MONTENEGRIN 32 mL/min/1.73m2 Critically low >=60 [facility] Comment on above: Performed By: #### C MP #### [facility] [address] [id number] Ghulam Amy Globulin (S) [Mass/Vol] 4.6 g/dL Normal [facility] Comment on above: Performed By: #### C MP #### [facility] [address] [id number] Ghulam Amy Glucose [Mass/Vol] 209 mg/dL Critically high 74-106 T [facility] Comment on above: Performed By: #### C MP #### [facility] [address] [phone] Ghulam Amy Potassium [Moles/Vol] 3.7 mmol/L Normal 3.4-5.0 [facility] Comment on above: Performed By: #### C MP #### [facility] [address] [phone] Ghulam Amy Protein [Mass/Vol] 7.3 g/dL Normal 6.1-8.2 [facility] Comment on above: Performed By: #### C MP #### [facility] [address] [id number] Ghulam Amy Sodium [Moles/Vol] 138 mmol/L Normal 137-145 [facility] Comment on above: Performed By: #### C MP #### [facility] [address] [phone] Ghulam Amy Urea nitrogen [Mass/Vol] 28.0 mg/dL Critically high 7.0-17.0 [facility] Comment on above: Performed By: #### C MP #### [facility] [address] [phone] Ghulam Amy Urea nitrogen/Creatinine [Mass ratio] 17.8 mg/mg Normal [facility] Comment on above: Performed By: #### C MP #### [facility] [address] [place], [place] [phone] Ghulam Amy Vital Signs Date Time Vital Sign Value Performing Clinician Facility 02-09-2024 13:00-0400 Body height 165.1 cm Pam RICHEY Work Phone: [facility] [employer] [facility] 02-09-2024 13:00-0400 Body mass index (BMI) [Ratio] 33.35 kg/m2 Pam Ley APRN-BARTOLO Work Phone: [facility] [employer] [facility] 02-09-2024 13:00-0400 Body temperature 98.2 [degF] Pam Ley APRN-[employer] Work Phone: [facility] [employer] [facility] 02-09-2024 13:00-0400 Body weight 90.9 kg Pam Ley APRN-[employer] Work Phone: [facility] [employer] [facility] 02-09-2024 13:00-0400 Diastolic blood pressure 72 mm[Hg] Pam Ley APRN-[employer] Work Phone: [facility] [employer] [facility] 02-09-2024 13:00-0400 Heart rate 79 /min Pam Ley APRN-BARTOLO Work Phone: [facility] [employer] [facility] 02-09-2024 13:00-0400 Respiratory rate 20 /min Pam Ley APRN-BARTOLO Work Phone: [facility] [employer] [facility] 02-09-2024 13:00-0400 SaO2% (BldA) [Mass fraction] 97 % Pam Ley APRN-BARTOLO Work Phone: [facility] [employer] [facility] 02-09-2024 13:00-0400 Systolic blood pressure 134 mm[Hg] Pam Ley APRN-BARTOLO Work Phone: [facility] [employer] [facility] 12-15-2023 14:51-0500 Body height 165.1 cm Pam Ley APRN-[employer] Work Phone: [facility] [employer] [facility] 12-15-2023 14:51-0500 Body mass index (BMI) [Ratio] 31.02 kg/m2 Pam Ley APRN-[employer] Work Phone: [facility] [employer] [facility] 12-15-2023 14:51-0500 Body temperature 98.29 [degF] Pam Ley APRN-FINISHER [employer] Work Phone: [facility] 12-15-2023 14:51-0500 Body weight 84.54 kg Pam Ley APRN-[employer]ER [employer] Work Phone: [facility] 12-15-2023 14:51-0500 Diastolic blood pressure 60 mm[Hg] Pam Ley APRN-FINISHER [employer] Work Phone: [facility] 12-15-2023 14:51-0500 Heart rate 89 /min Pam Ley APRN-[employer]ER [employer] Work Phone: [facility] 12-15-2023 14:51-0500 SaO2% (BldA) [Mass fraction] 94 % Pam Ley APRN-BARTOLO Work Phone: [facility] 12-15-2023 14:51-0500 Systolic blood pressure 100 mm[Hg] Pam Ley APRN-BARTOLO Work Phone: [facility] 11-25-2023 13:56-0500 Body height 165.1 cm Rambo Muñoz MD Work Phone: [facility] 11-25-2023 13:56-0500 Body mass index (BMI) [Ratio] 31.45 kg/m2 Rambo Muñoz MD Work Phone: [facility] 11-25-2023 13:56-0500 Body temperature 99 [degF] Rambo Muñoz MD Work Phone: [facility] 11-25-2023 13:56-0500 Body weight 85.73 kg Rambo Muñoz MD Work Phone: [facility] 11-25-2023 13:56-0500 Diastolic blood pressure 57 mm[Hg] Rambo Muñoz MD Work Phone: [facility] 11-25-2023 13:56-0500 Heart rate 65 /min Rambo Muñoz MD Work Phone: [facility] 11-25-2023 13:56-0500 Respiratory rate 16 /min Rambo Muñoz MD Work Phone: [facility] [employer] [facility] 11-25-2023 13:56-0500 SaO2% (BldA) [Mass fraction] 91 % Rambo Muñoz MD Work Phone: [facility] [employer] [facility] 11-25-2023 13:56-0500 Systolic blood pressure 141 mm[Hg] Rambo Muñoz MD Work Phone: [facility] [employer] [facility] 01-13-2023 07:13-0500 Body temperature 98.01 [degF] Luna Daniels MD Work Phone: [employer] 01-13-2023 07:13-0500 Diastolic blood pressure 54 mm[Hg] Luna Daniels MD Work Phone: [employer] 01-13-2023 07:13-0500 Heart rate 57 /min Luna Daniels MD Work Phone: [employer] 01-13-2023 07:13-0500 Respiratory rate 18 /min Luna Daniels MD Work Phone: [employer] 01-13-2023 07:13-0500 SaO2% (BldA) [Mass fraction] 98 % Luna Daniels MD Work Phone: [employer] 01-13-2023 07:13-0500 Systolic blood pressure 141 mm[Hg] Luna Daniels MD Work Phone: [employer] 12-11-2022 07:58-0500 Body temperature 98.8 [degF] Luna Daniels MD Work Phone: [employer] 12-11-2022 07:58-0500 Diastolic blood pressure 56 mm[Hg] Luna Daniels MD Work Phone: [employer] 12-11-2022 07:58-0500 Heart rate 85 /min Luna Daniels MD Work Phone: [employer] 12-11-2022 07:58-0500 Respiratory rate 16 /min Luna Daniels MD Work Phone: [employer] 12-11-2022 07:58-0500 SaO2% (BldA) [Mass fraction] 97 % Luna Daniels MD Work Phone: [employer] 12-11-2022 07:58-0500 Systolic blood pressure 156 mm[Hg] Luna Daniels MD Work Phone: [employer] 12-07-2022 11:44-0500 Body height 165.1 cm Luna Daniels MD Work Phone: [employer] 12-07-2022 11:44-0500 Body mass index (BMI) [Ratio] 34.61 kg/m2 Luna Daniels MD Work Phone: [employer] 12-07-2022 11:44-0500 Body weight 94.35 kg Luna Daniels MD Work Phone: [employer] 11-24-2022 11:44-0500 Body height 165.1 cm St[facility] 11-24-2022 11:44-0500 Body mass index (BMI) [Ratio] 34.95 kg/m2 St[facility] [employer] 11-24-2022 11:44-0500 Body temperature 98.4 [degF] Stv [facility] [employer] 11-24-2022 11:44-0500 Body weight 95.25 kg St[facility] 11-24-2022 11:44-0500 Diastolic blood pressure 45 mm[Hg] Stv B [employer] 11-24-2022 11:44-0500 Heart rate 60 /min [facility] 11-24-2022 11:44-0500 Respiratory rate 15 /min St[facility] [employer] 11-24-2022 11:44-0500 SaO2% (BldA) [Mass fraction] 93 % Stv [facility] [employer] 11-24-2022 11:44-0500 Systolic blood pressure 131 mm[Hg] Stv [facility] Encounters Encounter Date Encounter Type Care Provider Facility Start: 02-18-2024 End: 02-19-2024 ambulatory RAMBO MUÑOZ [facility] Start: 02-09-2024 End: 02-10-2024 ambulatory [facility] Start: 02-09-2024 End: 02-09-2024 ambulatory [facility] Start: 02-09-2024 End: 02-09-2024 Office outpatient visit 25 minutes Pam J Av DIRECTOR [employer] Work Phone: [facility] Comment on above: Acute cystitis witho ut hematuria (Primary Dx); Urge incontinence of urine Start: 01-10-2024 End: 01-11-2024 ambulatory SIMEON Ram [facility] Start: 01-04-2024 Refill Rambo Muñoz MD Work Phone: Stephany Carnes [facility] - [facility] Oncology Comment on above: 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, unspecified estrogen receptor status ([facility]) Start: 12-15-2023 End: 12-15-2023 ambulatory [facility] Start: 12-15-2023 End: 12-15-2023 Office outpatient visit 25 minutes Pam Estrella Ley DIRECTOR [employer] Work Phone: [facility] Comment on above: Upper respiratory tr act infection, unspecified type (Primary Dx); Normal pressure hydrocephalus (CMS-HCC); Moderate episode of recurrent major depressive disorder ([facility]); PVD (peripheral vascular disease) ([facility]); 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); Stage 3b chronic kidney disease (CMS-HCC); Major depressive disorder in partial remission, unspecified whether recurrent ([facility]); Essential hypertension; GERD without esophagitis; 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 ([facility]) Start: 12-06-2023 Refill Pam haines DIRECTOR [employer] Work Phone: [facility] Comment on above: Insomnia, unspecifie d type Start: 11-25-2023 End: 11-25-2023 ambulatory RAMBO MUÑOZ [facility] Start: 11-25-2023 End: 11-25-2023 Office outpatient visit 25 minutes Rambo Muñoz MD Work Phone: [facility] - Medical Oncology Comment on above: 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, unspecified estrogen receptor status (CMS-HCC) (Primary Dx); 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 breast in female, estrogen receptor positive (CMS-HCC) Start: 03-23-2023 End: 03-24-2023 ambulatory [facility] Start: 01-13-2023 End: 01-16-2023 ambulatory NAMRATA BLAIR [facility] Start: 01-13-2023 End: 01-15-2023 Subsequent hospital visit by physician Luna Daniels MD Work Phone: [facility]C Observation Comment on above: Arrived Severe aortic valve stenosis (Primary Dx); Type 2 diabetes mellitus with diabetic neuropathy, with long-term current use of insulin ([facility]); Tremors of nervous system; Family history of coronary arteriosclerosis; CHESLEA (obstructive sleep apnea) nonadherent with cpap; Stage 3a chronic kidney disease (HCC); Coronary artery disease involving [place] coronary artery of [place] heart without angina pectoris Aortic valve stenosi s, etiology of cardiac valve disease unspecified Start: 12-07-2022 End: 12-11-2022 ambulatory LUNA DANIELS [facility] Start: 12-07-2022 End: 12-11-2022 Subsequent hospital visit by physician Luna Daniels MD Work Phone: [facility]A Stepdown Comment on above: Severe aortic valve stenosis (Primary Dx) Start: 11-24-2022 End: 11-25-2022 ambulatory FLIP JOSE ALI [facility] Start: 11-24-2022 End: 11-24-2022 Subsequent hospital visit by physician Kaylin Provider Relations Representative Daryl CRAVEN Provider Relations Representative Comment on above: Canceled (Case cance lled) Start: 09-28-2022 End: 09-30-2022 Evaluation and management of inpatient LUISJorge [facility] Start: 03-31-2022 End: 04-01-2022 ambulatory Vale Bowser Facility:[facility] Start: 03-26-2021 End: 03-27-2021 ambulatory ELIZABETH [facility] Start: 03-24-2021 End: 03-25-2021 ambulatory LAKESHIA [facility] Start: 03-24-2021 End: 03-24-2021 Subsequent hospital visit by physician Caden Sanchez [facility] Start: 03-19-2021 End: 03-20-2021 ambulatory PAM LEY Facility: Procedures Date Procedure Procedure Detail Performing Clinician Start: 02-09-2024 Urnls dip stick/tabl et rgnt non-auto w/o micrscp Pam Ley DIRECTOR [employer] Work Phone: Start: 02-09-2024 Adult depression scr eening assessment Pam Ley DIRECTOR [employer] Work Phone: Start: 12-15-2023 Adult depression scr eening assessment Pam Ley DIRECTOR [employer] Work Phone: Start: 11-25-2023 Follow-up visit Follow-up RAMBO MUÑOZ Start: 08-17-2023 Adult depression scr eening assessment Rambo Muñoz MD Work Phone: Start: 01-13-2023 Brncdilat rspse spmt ry pre&post-brncdilat admn Namrata Blair DIRECTOR [employer] Work Phone: Start: 01-13-2023 Ct angiography chest w/contrast/noncontrast Namrata Blair APRN - FINISHER [employer] Work Phone: Start: 12-11-2022 Glucose blood reagent strip Luna Daniels MD Work Phone: Start: 12-10-2022 Glucose blood reagent strip Luna Daniels MD Work Phone: Start: 12-10-2022 Glucose blood reagent strip Luna Daniels MD Work Phone: Start: 12-10-2022 Glucose blood reagent strip Luna Daniels MD Work Phone: Start: 12-10-2022 Basic metabolic pane l calcium total Rita Leos DIRECTOR [employer] Work Phone: Start: 12-10-2022 Antibody screen Luna morales MD Work Phone: Start: 12-10-2022 End: 12-10-2022 Glucose blood reagent strip Luna Daniels MD Work Phone: Start: 12-09-2022 End: 12-09-2022 Blood count hemoglobin Luna Daniels MD Work Phone: Start: 12-09-2022 Glucose blood reagent strip Luna Daniels MD Work Phone: Start: 12-09-2022 End: 12-09-2022 Transfusion of packed red blood cells Radha Guerreroher DIRECTOR [employer] Work Phone: Start: 12-09-2022 Glucose blood reagent strip Luna Daniels MD Work Phone: Start: 12-09-2022 BASIC METABOLIC PANE L W/ REFLEX TO MG FOR LOW K Nadira Jin MD Start: 12-09-2022 End: 12-09-2022 Blood count hemoglobin Nadira Jin MD Start: 12-08-2022 Glucose blood reagent strip Luna Daniels MD Work Phone: Start: 12-08-2022 Blood count hemoglobin Hemindclay Trejo MD Work Phone: Start: 12-08-2022 Glucose [...] Start: 03-24-2021 Assay of blood/uric acid Lakeshia Farias APRN - [employer] Work Phone: Plan of Treatment Date Care Activity Detail Author Start: 12-15-2024 Adult BMI Follow Up Plan Adult BMI F ollow Up Plan [facility] Start: 12-15-2024 Adult BMI Screening Adult BMI Screen ing [facility] Start: 12-15-2024 Depression Screening Depression Scre ening [facility] Start: 12-15-2024 Fall Risk Screening Fall Risk Screen ing [facility] Start: 12-15-2024 Tobacco Screening Tobacco Screening [facility] Start: 11-25-2024 Adult BMI Screening Adult BMI Screen ing [facility] Start: 09-28-2024 Tobacco Screening Tobacco Screening [facility] Start: 08-31-2024 Adult BMI Follow Up Plan Adult BMI F ollow Up Plan [facility] Start: 08-17-2024 [facility] Start: 08-10-2024 Fall Risk Screening Fall [facility] Start: 08-10-2024 Medicare Annual Well ness Visit Medicare Annual Wellness Visit [facility] Start: 03-09-2024 End: 03-09-2024 Patient encounter procedure 03/09/2024 3:15 PM EDT Office Visit [facility] [address] [place] [address] Rambo Muñoz MD [address] [facility] [address] [place], [place] [id number] [facility] Start: 01-13-2024 End: 01-13-2024 Patient encounter procedure 01/13/2024 1:00 PM EST Office Visit [facility] [address] [place] [id number] Pam Ley, DIRECTOR [employer] [address] [place] [address] [facility] Start: 09-02-2023 Lipid panel Lipids [employer] Start: 02-02-2023 End: 02-02-2023 Patient encounter procedure 02/02/2023 Appointment IP Unit [facility] Provider Relations Representative Start: 01-18-2023 End: 01-14-2024 Basic metabolic 2000 panel - Serum or Plasma Basic Metabolic Panel Lab STAT Severe aortic valve stenosis Expected: 01/18/2023, Expires: 01/14/2024 [facility] Phone: Comment on above: Expected: 01/18/2023 , Expires: 01/14/2024 Start: 12-17-2022 End: 12-10-2023 Basic metabolic 2000 panel - Serum or Plasma Basic Metabolic Panel Lab Routine Severe aortic valve stenosis Expected: 12/17/2022, Expires: 12/10/2023 [facility] Phone: Comment on above: Expected: 12/17/2022 , Expires: 12/10/2023 Start: 12-17-2022 End: 12-10-2023 Hemoglobin and Hematocrit Hemoglobin and Hematocrit Lab Routine Severe aortic valve stenosis Expected: 12/17/2022, Expires: 12/10/2023 [facility]: Comment on above: Expected: 12/17/2022 , Expires: 12/10/2023 Start: 09-28-2022 Annual Wellness Visi t (AWV) Annual Wellness Visit (AWV) [facility] Start: 07-16-2021 Influenza vaccination Flu vacc ine (Season Ended) [facility] Start: 04-01-2021 COVID-19 Vaccine (3 - Booster for Pfizer series) COVID-19 Vaccine (3 - Booster for Pfizer series) [facility] Start: 03-04-2021 COVID-19 Vaccine (3 - Pfizer risk series) COVID-19 Vaccine (3 - Pfizer risk series) [facility] Start: 1996 Shingles vaccine (1 of 2) Cuevas gles vaccine (1 of 2) [facility] Start: 1965 Administration of varicella zoster vaccine Zoster (Shingles) Vaccine (1 of 2) [facility] Start: 1965 DTaP,Tdap and Td Vac cines (1 - Tdap) DTaP,Tdap and Td Vaccines (1 - Tdap) [facility] Start: 1965 DTaP/Tdap/Td vaccine (1 - Tdap) DTaP/Tdap/Td vaccine (1 - Tdap) [facility] Start: 1964 Hepatitis C screening Hepatitis C sc reen [facility] Start: 1962 COVID-19 Vaccine (1) COVID-19 Vaccin e (1) [facility]: Start: 1958 Depression Screen Depression Screen [facility] Start: 1946 Creatinine measurement Creatinine mo nitoring [employer] Phone: Start: 1946 Potassium monitoring Potassium monit billy [employer] Phone: End: 02-08-2025 Bacteria identified in Urine by Culture Urine culture (clean catch) Microbiology Routine Acute cystitis without hematuria 1 Occurrences starting 02/09/2024 until 02/08/2025 [email or web address] Phone: Comment on above: 1 Occurrences starti ng 02/09/2024 until 02/08/2025 End: 12-07-2022 Blood Bank Specimen JEAN [employer] Phone: Comment on above: Once for 1 Occurrenc es starting 12/07/2022 until 12/07/2022 End: 11-25-2024 Cancer antigen 15-3 Cancer antigen 15-3 Lab Routine 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 female breast, unspecified estrogen receptor status ([facility]) every 3 months for 50 Occurrences starting 11/25/2023 until 11/25/2024 [employer] Comment on above: every 3 months for 5 0 Occurrences starting 11/25/2023 until 11/25/2024 End: 11-25-2024 Cancer antigen 27-29 Cancer antigen 27-29 Lab Routine 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 female breast, unspecified estrogen receptor status ([facility]) every 3 months for 50 Occurrences starting 11/25/2023 until 11/25/2024 [employer] Comment on above: every 3 months for 5 0 Occurrences starting 11/25/2023 until 11/25/2024 End: 11-24-2022 Catheterization and angiography procedure details panel Cardiac Catheterization Cardiac Cath Routine One Time for 1 Occurrences starting 11/24/2022 until 11/24/2022 [facility] Phone: Comment on above: One Time for 1 Occur rences starting 11/24/2022 until 11/24/2022 End: 12-07-2022 Catheterization and angiography procedure details panel Cardiac Catheterization Cardiac Cath Routine One Time for 1 Occurrences starting 12/07/2022 until 12/07/2022 [employer] Phone: Comment on above: One Time for 1 Occur rences starting 12/07/2022 until 12/07/2022 End: 11-25-2024 CBC W Auto Differential panel - Blood CBC with auto diff Lab Routine 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 female breast, unspecified estrogen receptor status (CMS-HCC) every 3 months for 50 Occurrences starting 11/25/2023 until 11/25/2024 [employer] Phone: Comment on above: every 3 months for 5 0 Occurrences starting 11/25/2023 until 11/25/2024 End: 11-25-2024 Comprehensive metabolic 2000 panel - Serum or Plasma Comprehensive metabolic panel Lab Routine 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 female breast, unspecified estrogen receptor status (CMS-HCC) every 3 months for 50 Occurrences starting 11/25/2023 until 11/25/2024 [employer] Comment on above: every 3 months for 5 0 Occurrences starting 11/25/2023 until 11/25/2024 End: 01-13-2023 CT CARDIAC W C ST[facility] MORP CARD ONLY [facility] Phone: Comment on above: 1 Occurrences starti ng 01/13/2023 until 01/13/2023 End: 12-07-2022 EKG 12 lead EKG 12 lead ECG Routine One Time for 1 Occurrences starting 12/07/2022 until 12/07/2022 [employer] Phone: Comment on above: One Time for 1 Occur rences starting 12/07/2022 until 12/07/2022 Glucose [Mass/volume ] in Serum or Plasma POCT glucose Point of Care Testing Routine 4X Daily (AC & HS) until discontinued starting 12/07/2022 [employer] Phone: Comment on above: 4X Daily (AC & HS) u ntil discontinued starting 12/07/2022 End: 12-10-2022 Hemoglobin and Hematocrit Hemoglobin and Hematocrit Lab STAT Post Transfusion Post Transfusion Post Transfustion for 1 Occurrences starting 12/09/2022 until 12/10/2022 [employer] Phone: Comment on above: Post Transfusion Pos t Transfusion Post Transfustion for 1 Occurrences starting 12/09/2022 until 12/10/2022 Oxygen therapy [Mini mum Data Set] Initiate Oxygen Therapy Protocol Respiratory Care Routine As Needed until discontinued starting 11/24/2022 [employer] Phone: Comment on above: As Needed until disc ontinued starting 11/24/2022 Oxygen therapy [Mini mum Data Set] Initiate Oxygen Therapy Protocol Respiratory Care Routine As Needed until discontinued starting 12/07/2022 [employer] Phone: Comment on above: As Needed until disc ontinued starting 12/07/2022 Oxygen therapy [Mini mum Data Set] Initiate Oxygen Therapy Protocol Respiratory Care Routine As Needed until discontinued starting 12/07/2022 [employer] Comment on above: As Needed until disc ontinued starting 12/07/2022 End: 11-24-2022 POC CHEM8 INCLUDES CALC. ANION GAP POC CHEM8 INCLUDES CALC. ANION GAP Point of Care Testing STAT One Time for 1 Occurrences starting 11/24/2022 until 11/24/2022 [employer] Phone: Comment on above: One Time for 1 Occur rences starting 11/24/2022 until 11/24/2022 End: 12-07-2022 POC CHEM8 INCLUDES CALC. ANION GAP POC CHEM8 INCLUDES CALC. ANION GAP Point of Care Testing STAT One Time for 1 Occurrences starting 12/07/2022 until 12/07/2022 [employer] Phone: Comment on above: One Time for 1 Occur rences starting 12/07/2022 until 12/07/2022 End: 12-07-2022 PREPARE RBC (CROSSMATCH), 1 Units PREPARE RBC (CROSSMATCH), 1 Units Blood Bank STAT Once for 1 Occurrences starting 12/07/2022 until 12/07/2022 [employer] Phone: Comment on above: Once for 1 Occurrenc es starting 12/07/2022 until 12/07/2022 End: 12-08-2022 PREPARE RBC (CROSSMATCH), 1 Units PREPARE RBC (CROSSMATCH), 1 Units Blood Bank Routine Once for 1 Occurrences starting 12/08/2022 until 12/08/2022 [employer] Work Phone: Comment on above: Once for 1 Occurrenc es starting 12/08/2022 until 12/08/2022 End: 12-09-2022 PREPARE RBC (CROSSMATCH), 1 Units PREPARE RBC (CROSSMATCH), 1 Units Blood Bank Routine Once for 1 Occurrences starting 12/09/2022 until 12/09/2022 [employer] Work Phone: Comment on above: Once for 1 Occurrenc es starting 12/09/2022 until 12/09/2022 End: 12-08-2022 PREVIOUS SPECIMEN [employer] Work Phone: Comment on above: Once for 1 Occurrenc es starting 12/08/2022 until 12/08/2022 Immunizations Immunization Date Immunization Notes Care Provider Fa [facility] 08-10-2023 Influenza Vaccine, Quadrivalent, Adjuvanted Rambo Muñoz MD Work Phone: [facility] 08-06-2022 Influenza Vaccine, Quadrivalent, Adjuvanted Rambo Muñoz MD Work Phone: [facility] 08-27-2021 influenza, high dose seasonal, preservative-free Rambo Muñoz MD Work Phone: [facility] 05-28-2021 pneumococcal conjuga te vaccine, 13 valent Rambo Muñoz MD Work Phone: [facility] 02-04-2021 COVID-19, mRNA, LNP- S, PF, 30mcg/0.3mL Dose Rambo Muñoz MD Work Phone: [facility] 01-07-2021 COVID-19, mRNA, LNP- S, PF, 30mcg/0.3mL Dose Rambo Muñoz MD Work Phone: [facility] 11-25-2020 influenza, injectabl e, quadrivalent, preservative free Rambo Muñoz MD Work Phone: [facility] 08-30-2020 Influenza, High-dose , Quadrivalent Rambo Muñoz MD Work Phone: [facility] 09-14-2019 influenza, injectabl e, quadrivalent, contains preservative Rambo Muñoz MD Work Phone: [facility] 09-11-2019 influenza, injectabl e, quadrivalent, preservative free Rambo Muñoz MD Work Phone: [facility] 08-31-2018 influenza, injectabl e, quadrivalent, preservative free Rambo Muñoz MD Work Phone: [facility] 09-07-2017 influenza, injectabl e, quadrivalent, preservative free Rambo Muñoz MD Work Phone: [facility] 07-10-2015 pneumococcal polysaccharide vaccine, 23 valent Rambo Muñoz MD Work Phone: [facility] Payers Date Payer Category Payer Medicare [id number] 2022 Medicare [facility] MEDICARE ANTH MEDICARE ADVANTAGE [id number] 2022-Present [phone] [address] [place] [address] [id number] 2022 Medicare [id number] 2022 Medicaid MEDICAID [facility] EDICAID [id number] 2022-Present [phone] [address] [place] [address] [id number] 2017 Medicaid [id number] 2017 Unknown [id number] 1959 Medicaid [id number] 1946 Unknown [id number] 1946 Unknown [id number] 1946 Unknown [id number] 1946 Unknown [id number] 1946 Unknown [id number] [id number] 1946 Unknown [id number] 1946 Unknown [id number] [id number] 1946 Unknown [id number] 1946 Unknown [id number] [id number] 1946 Unknown [id number] [id number] 1946 Unknown [id number] [id number] 1946 Unknown [id number] [id number] 1946 Unknown [id number] [id number] 1946 Unknown [id number] [id number] 1946 Unknown [id number] [id number] 1946 Unknown [id number] Social History Date Type Detail Facility Start: 10-15-2014 End: 10-05-2022 Tobacco smoking status NHIS Never smoker [employer] Start: 10-15-2014 End: 02-09-2024 Alcohol intake Current non-drinker of alcohol (finding) [employer]: Start: 10-02-2014 Alcohol Comment occaisional [employer]: Start: 1945 Sex Assigned At Not on file [employer]: Start: 11-14-2022 End: 12-07-2022 Exposure to SARS-CoV-2 (event) Not sure [employer] Start: 10-05-2022 Tobacco use and exposure Smok[facility] Start: 10-05-2022 End: 02-09-2024 [facility] of [facility] Start: 10-05-2022 End: 02-09-2024 Social connection and isolation panel [facility] Do you belong to any clubs or organizations such as scientology groups, unions, fraternal or athletic groups, or school groups? Yes [facility] Are you now , , , , never or living with a partner? Never [facility] How often to you hav e a drink containing alcohol? Never [facility] How many standard dr inks containing alcohol do you have on a typical day? Patient does not drink [facility] Do you feel stress - tense, restless, nervous, or anxious, or unable to sleep at night because your mind is troubled all the time - these days [OSQ] Not at all [facility] Start: 03-21-2020 Gender identity Identifies as female gender (finding) [facility] Start: 10-05-2022 Sexual orientation Heterosexual (finding) [facility] Medical Equipment Procedure Code Equipment Code Equipment Origin al Text Equipment Identifier Dates Valve Aor Evolut Fx 26mm - [id number] - [id number] Start: 08-17-2023 Monitor blood wahl gars four times daily and as needed [id number] Start: 10-11-2020 USE FOUR TIMES A DAY. ICD 10 E11.29 [id number] Start: 08-31-2022 4 applicators by miscellaneous route See Admin Instructions. 4 times daily injection [id number] Start: 04-21-2021 Goals Date Patient Goal Desired Activity /State Personal health goal Comment on above: Formatting of this n ote might be different from the original. Below are four things you can do to prevent falls: 1. Begin an exercise program to improve your leg strength & balance 2. Ask your doctor or pharmacist to review your medicines 3. Get annual eye check-ups & update your eyeglasses 4. Make your home safer by: Removing clutter & tripping hazards Putting railings on all stairs & adding grab bars in the bathroom Having good lighting, especially on stairs Contact your local community or [facility] for information on exercise, fall prevention programs, or options for improving home safety. Personal health goal Comment on above: Formatting of this n ote might be different from the original. Evaluation of progress towards goal: Safe dc transition to SNF pending clinical course. Clinical Notes 03-20-2021 to 02-09-2024 KAIDEN Werner - 02/09/2024 1:00 PM EDTLISA Werner CNP - 12/15/2023 3:00 PM Jan Muñoz MD - 11/25/2023 2:30 PM ESTPatient Instructions Note Date & Type Note Facility 02-09-2024 History of Present illness Narrative Images from the original note were not included. [address] [place] [facility] [address] SUBJECTIVE: Patient ID: Cuca Goodwin is a 78 y.o. female. Chief Complaint Patient presents with incontinence Accompanied by daughter today Urine is cloudy, increased incontinence. Concerns for reoccurrence of UTI. Patient was hospitalized at [facility] in September 2023 for UTI. Uses Purewick devices during hours of sleep for urinary incontinence Urinary Tract Infection This is a new problem. The current episode started in the past 7 days. The problem has been gradually worsening. The quality of the pain is described as aching. The pain is at a severity of 3/10. The pain is mild. There has been no fever. She is Not sexually active. There is No history of pyelonephritis. Associated symptoms include frequency, hesitancy and urgency. Pertinent negatives include no chills. She has tried increased fluids for the symptoms. Her past medical history is significant for recurrent UTIs. The following portions of the patient's history were reviewed and updated as appropriate: allergies, current medications, past family history, past medical history, past social history, past surgical history and problem list. Past Surgical History: Procedure Laterality Date BREAST BIOPSY Right 03/01/2023 ULT BIOPSY CATARACT EXTRACTION SECTION SECTION 03/14/1974 EGD N/A 10/17/2019 Performed by Sang Bell DO at [facility] HYSTEROSCOPY DILATION CURETTAGE MYOSURE N/A 01/29/2021 Performed by Jv Briones MD at [facility] INJECTION BLOCK EPIDURAL CAUDAL STEROID N/A 08/14/2022 Performed by Arnulfo Gonzalez MD at [facility] INJECTION BLOCK EPIDURAL CAUDAL STEROID N/A 06/06/2021 Performed by Arnulfo Gonzalez MD at [facility] INJECTION BLOCK EPIDURAL CAUDAL STEROID N/A 04/25/2021 Performed by Arnulfo Gonzalez MD at [facility] INJECTION CAUDAL EPIDURAL WITH CATHETER, STEROID N/A 05/03/2020 Performed by Arnulfo Gonzalez MD at [facility] INJECTION CAUDAL EPIDURAL WITH CATHETER, STEROID N/A 11/24/2019 Performed by Arnulfo Gonzalez MD at [facility] INJECTION CAUDAL EPIDURAL WITH CATHETER, STEROID N/A 04/21/2019 Performed by Arnulfo Gonzalez MD at [facility] NERVE BLOCK Bilateral L 4/5, 5/1 Bilateral 08/18/2019 Performed by Arnulfo Gonzalez MD at [facility] INJECTION MEDIAL BRANCH NERVE BLOCK Bilateral L 4/5, 5/1 Bilateral 06/23/2019 Performed by Arnulfo Gonzalez MD at [facility] INJECTION STEROID EPI 1 WITH SEDATION Right L 4, 5 NR Right 03/17/2019 Performed by Arnulfo Gonzalez MD at [facility] INJECTION STEROID EPI 1 WITH SEDATION: right L45 nroot Right 08/15/2018 Performed by Arnulfo Gonzalez MD at [facility] LEFT L4, AND 5 NERVE ROOT INJECTION 2 OF 2 Left 07/22/2018 Performed by Arnulfo Gonzalez MD at [facility] LEFT L4, AND L5 NERVE ROOT 1 OF 2 Left 07/04/2018 Performed by Arnulfo Gonzalez MD at [facility] PERCUTANEOUS CORONARY INTERVENTION SHUNT INSERTION TONSILLECTOMY AGE 4 Transcutaneous aortic valve replacement/Transfemoral/Kwan N/A 08/17/2023 Performed by Chava Norris MD at [facility] Valvuloplasty aortic N/A 06/03/2023 Performed by Chava Norris MD at [facility] Past Medical History: Diagnosis Date Anemia Arthritis Asthma very mild, no inhaler use Cataract Dental disease Depression Diabetes mellitus ([facility]) Diabetes mellitus type 2, controlled ([facility]) Encephalitis Foot fracture, left GERD (gastroesophageal reflux disease) Heart murmur HLD (hyperlipidemia) Hypertension Incontinence Injury of back Insulin dependent diabetes mellitus Kidney failure STAGE 4 Lumbar spondylolysis Murmur Obesity CHELSEA (obstructive sleep apnea) no machine Peptic ulceration Peripheral vascular disease ([facility]) Shortness of breath TIA (transient ischemic attack) Upper respiratory infection UTI (urinary tract infection) Visual impairment Wears dentures Immunization History Administered Date(s) Administered COVID-19, mRNA, LNP-S, PF, 30mcg/0.3mL Dose 01/07/2021, 02/04/2021 Influenza High Dose Preservative Free IM 08/27/2021 Influenza Vaccine, Quadrivalent, Adjuvanted 08/06/2022, 08/10/2023 Influenza, High-dose, Quadrivalent 08/30/2020 Influenza, Injectable, Quadrivalent 09/14/2019 Influenza, Injectable, quadrivalent (PF) 09/07/2017, 08/31/2018, 09/11/2019, 11/25/2020 Pneumococcal Conjugate 13-Valent 05/28/2021 Pneumococcal Polysaccharide 07/10/2015 REVIEW OF SYSTEMS: Review of Systems Constitutional: Negative for chills and fever. HENT: Negative. Eyes: Negative for visual disturbance. Respiratory: Negative for chest tightness and shortness of breath. Cardiovascular: Negative for chest pain and palpitations. Gastrointestinal: Negative. Endocrine: Negative. Genitourinary: Positive for frequency, hesitancy and urgency. Negative for menstrual problem and pelvic pain. Musculoskeletal: Negative. Skin: Negative. Allergic/Immunologic: Negative. Neurological: Negative for syncope and facial asymmetry. Hematological: Does not bruise/bleed easily. Psychiatric/Behavioral: Negative. PHYSICAL EXAMINATION: Vitals: 02/09/24 1300 BP: 134/72 BP Site: Left Arm BP Postition: Sitting Pulse: 79 Resp: 20 Temp: 36.8 C (98.2 F) TempSrc: Oral SpO2: 97% Weight: 90.9 kg (200 lb 6.4 oz) Height: 165.1 cm (5' 5 ) Patient noted to have elevated BMI and the following intervention(s) were applied: encouragement to exercise. Physical Exam Vitals and nursing note reviewed. Constitutional: General: She is not in acute distress. Appearance: She is well-developed. She is not diaphoretic. HENT: Head: Normocephalic and atraumatic. Right Ear: Tympanic membrane and external ear normal. Left Ear: Tympanic membrane and external ear normal. Nose: Nose normal. Mouth/Throat: Mouth: Mucous membranes are moist. Pharynx: No oropharyngeal exudate. Eyes: General: Right eye: No discharge. Left eye: No discharge. Conjunctiva/sclera: Conjunctivae normal. Pupils: Pupils are equal, round, and reactive to light. Neck: Thyroid: No thyromegaly. Vascular: No JVD. Cardiovascular: Rate and Rhythm: Normal rate and regular rhythm. Heart sounds: Normal heart sounds. No murmur heard. No friction rub. No gallop. Pulmonary: Effort: Pulmonary effort is normal. Breath sounds: Normal breath sounds. Abdominal: General: Bowel sounds are normal. There is no distension. Palpations: Abdomen is soft. There is no mass. Tenderness: There is no abdominal tenderness. Musculoskeletal: General: Normal range of motion. Cervical back: Normal range of motion and neck supple. Lymphadenopathy: Cervical: No cervical adenopathy. Skin: General: Skin is warm and dry. Capillary Refill: Capillary refill takes less than 2 seconds. Neurological: Mental Status: She is alert and oriented to person, place, and time. Deep Tendon Reflexes: Reflexes are normal and symmetric. Psychiatric: Mood and Affect: Mood normal. Behavior: Behavior normal. Thought Content: Thought content normal. Judgment: Judgment normal. ASSESSMENT/PLAN: Cuca was seen today for incontinence. Diagnoses and all orders for this visit: Urge incontinence of urine - POCT urinalysis dipstick only Acute cystitis without hematuria - CEPHalexin (KEFLEX) 250 mg capsule; Take 1 capsule (250 mg total) by mouth in the morning and 1 capsule (250 mg total) before bedtime. Do all this for 10 days. - cefTRIAXone (ROCEPHIN) 1 g in lidocaine (XYLOCAINE) 10 mg/mL (1 %) IM injection - Urine culture (clean catch); Future Urine dip reveals, cloudy yellow, Trace blood and protein, positive nitrates, 2+ leukocyte esterase. Send urine for culture Rocephin 1 gram IM in office today Start cephalexin 250 mg oral twice daily tomorrow x 10 days ALL QUESTIONS ANSWERED Total time spent was 30 minutes: Preparing to see the patient (e.g., review of tests) Obtaining and/or reviewing separately obtained history Performing a medically appropriate examination and/or evaluation Counseling and educating the patient/family/caregiver Ordering medications, tests, or procedures Follow-up: Next scheduled Sooner if no improvement KAIDEN Werner 02/09/24 1420 documented in this encounter [facility] 12-15-2023 History of Present illness Narrative Images from the original note were not included. [address] [place] [facility] [address] SUBJECTIVE: Patient ID: Cuca Goodwin is a 78 y.o. female. Chief Complaint Patient presents with Cough Nasal Congestion States she got a cold around the first week of November. Symptoms have been waxing and waning. Her symptoms include cough and congestion, and sinus pressure. Alleviating methods include Robitussin and Vicks. No relief. Cough This is a new problem. The current episode started 1 to 4 weeks ago. The problem has been waxing and waning. The problem occurs hourly. The cough is Non-productive. Associated symptoms include myalgias, nasal congestion, postnasal drip and rhinorrhea. Pertinent negatives include no headaches. Nothing aggravates the symptoms. Nasal Congestion Associated symptoms include congestion and coughing. Pertinent negatives include no headaches. URI Associated symptoms include congestion, coughing and rhinorrhea. Pertinent negatives include no headaches. The following portions of the patient's history were reviewed and updated as appropriate: allergies, current medications, past family history, past medical history, past social history, past surgical history and problem list. Past Surgical History: Procedure Laterality Date BREAST BIOPSY Right 03/01/2023 ULT BIOPSY CATARACT EXTRACTION SECTION SECTION 03/14/1974 EGD N/A 10/17/2019 Performed by Sang Bell DO at [facility] HYSTEROSCOPY DILATION CURETTAGE MYOSURE N/A 01/29/2021 Performed by Jv Briones MD at [facility] INJECTION BLOCK EPIDURAL CAUDAL STEROID N/A 08/14/2022 Performed by Arnulfo Gonzalez MD at [facility] INJECTION BLOCK EPIDURAL CAUDAL STEROID N/A 06/06/2021 Performed by Arnulfo Gonzalez MD at [facility] INJECTION BLOCK EPIDURAL CAUDAL STEROID N/A 04/25/2021 Performed by Arnulfo Gonzalez MD at [facility] INJECTION CAUDAL EPIDURAL WITH CATHETER, STEROID N/A 05/03/2020 Performed by Arnulfo Gonzalez MD at [facility] INJECTION CAUDAL EPIDURAL WITH CATHETER, STEROID N/A 11/24/2019 Performed by Arnulfo Gonzalez MD at [facility] INJECTION CAUDAL EPIDURAL WITH CATHETER, STEROID N/A 04/21/2019 Performed by Arnulfo Gonzalez MD at [facility] NERVE BLOCK Bilateral L 4/5, 5/1 Bilateral 08/18/2019 Performed by Arnulfo Gonzalez MD at [facility] INJECTION MEDIAL BRANCH NERVE BLOCK Bilateral L 4/5, 5/1 Bilateral 06/23/2019 Performed by Arnulfo Gonzalez MD at [facility] INJECTION STEROID EPI 1 WITH SEDATION Right L 4, 5 NR Right 03/17/2019 Performed by Arnulfo Gonzalez MD at [facility] INJECTION STEROID EPI 1 WITH SEDATION: right L45 nroot Right 08/15/2018 Performed by Arnulfo Gonzalez MD at [facility] LEFT L4, AND 5 NERVE ROOT INJECTION 2 OF 2 Left 07/22/2018 Performed by Arnulfo Gonzalez MD at [facility] LEFT L4, AND L5 NERVE ROOT 1 OF 2 Left 07/04/2018 Performed by Arnulfo Gonzalez MD at [facility] PERCUTANEOUS CORONARY INTERVENTION SHUNT INSERTION TONSILLECTOMY AGE 4 Transcutaneous aortic valve replacement/Transfemoral/Kwan N/A 08/17/2023 Performed by Chava Norris MD at [facility] Valvuloplasty aortic N/A 06/03/2023 Performed by Chava Norris MD at [facility] Past Medical History: Diagnosis Date Anemia Arthritis Asthma very mild, no inhaler use Cataract Dental disease Depression Diabetes mellitus ([facility]) Diabetes mellitus type 2, controlled ([facility]) Encephalitis Foot fracture, left GERD (gastroesophageal reflux disease) Heart murmur HLD (hyperlipidemia) Hypertension Incontinence Injury of back Insulin dependent diabetes mellitus Kidney failure STAGE 4 Lumbar spondylolysis Murmur Obesity CHELSEA (obstructive sleep apnea) no machine Peptic ulceration Peripheral vascular disease ([facility]) Shortness of breath TIA (transient ischemic attack) Upper respiratory infection UTI (urinary tract infection) Visual impairment Wears dentures Immunization History Administered Date(s) Administered COVID-19, mRNA, LNP-S, PF, 30mcg/0.3mL Dose 01/07/2021, 02/04/2021 Influenza High Dose Preservative Free IM 08/27/2021 Influenza Vaccine, Quadrivalent, Adjuvanted 08/06/2022, 08/10/2023 Influenza, High-dose, Quadrivalent 08/30/2020 Influenza, Injectable, Quadrivalent 09/14/2019 Influenza, Injectable, quadrivalent (PF) 09/07/2017, 08/31/2018, 09/11/2019, 11/25/2020 Pneumococcal Conjugate 13-Valent 05/28/2021 Pneumococcal Polysaccharide 07/10/2015 REVIEW OF SYSTEMS: Review of Systems HENT: Positive for congestion, postnasal drip and rhinorrhea. Respiratory: Positive for cough. Musculoskeletal: Positive for myalgias. Neurological: Negative for headaches. PHYSICAL EXAMINATION: Vitals: 12/15/23 1451 BP: 100/60 BP Site: Left Arm BP Postition: Sitting Pulse: 89 Temp: 36.8 C (98.3 F) TempSrc: Tympanic SpO2: 94% Weight: 84.5 kg (186 lb 6.1 oz) Height: 165.1 cm (5' 5 ) Patient noted to have elevated BMI and the following intervention(s) were applied: encouragement to exercise. Physical Exam Vitals and nursing note reviewed. Constitutional: General: She is not in acute distress. Appearance: She is well-developed. She is not diaphoretic. HENT: Head: Normocephalic and atraumatic. Right Ear: Tympanic membrane and external ear normal. Left Ear: Tympanic membrane and external ear normal. Nose: Nose normal. Mouth/Throat: Mouth: Mucous membranes are moist. Pharynx: No oropharyngeal exudate. Eyes: General: Right eye: No discharge. Left eye: No discharge. Conjunctiva/sclera: Conjunctivae normal. Pupils: Pupils are equal, round, and reactive to light. Neck: Thyroid: No thyromegaly. Vascular: No JVD. Cardiovascular: Rate and Rhythm: Normal rate and regular rhythm. Heart sounds: Normal heart sounds. No murmur heard. No friction rub. No gallop. Pulmonary: Effort: Pulmonary effort is normal. Breath sounds: Normal breath sounds. Abdominal: General: Bowel sounds are normal. There is no distension. Palpations: Abdomen is soft. There is no mass. Tenderness: There is no abdominal tenderness. Musculoskeletal: General: Normal range of motion. Cervical back: Normal range of motion and neck supple. Lymphadenopathy: Cervical: No cervical adenopathy. Skin: General: Skin is warm and dry. Capillary Refill: Capillary refill takes less than 2 seconds. Neurological: Mental Status: She is alert and oriented to person, place, and time. Deep Tendon Reflexes: Reflexes are normal and symmetric. Psychiatric: Mood and Affect: Mood normal. Behavior: Behavior normal. Thought Content: Thought content normal. Judgment: Judgment normal. ASSESSMENT/PLAN: Cuca was seen today for cough and nasal congestion. Diagnoses and all orders for this visit: Upper respiratory tract infection, unspecified type - azithromycin (ZITHROMAX) 250 mg tablet; Take 2 tablets the first day, then 1 tablet daily for 4 days. - pyrilamine-dextromethorphan 7.5-7.5 mg/5 mL liquid; Take 5 mL by mouth every 8 (eight) hours as needed (cough and congestion). Normal pressure hydrocephalus ([facility]) Moderate episode of recurrent major depressive disorder ([facility]) PVD (peripheral vascular disease) ([facility]) 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 mellitus ([facility]) - gabapentin (NEURONTIN) 300 mg capsule; Take 1 capsule (300 mg total) by mouth in the morning and 1 capsule (300 mg total) before bedtime. Stage 3b chronic kidney disease ([facility]) Major depressive disorder in partial remission, unspecified whether recurrent ([facility]) - sertraline (ZOLOFT) 100 mg tablet; Take 1 tablet (100 mg total) by mouth in the morning. Essential hypertension - metoprolol succinate XL (TOPROL XL) 25 mg 24 hr tablet; Take 1 tablet (25 mg total) by mouth once daily. GERD without esophagitis - pantoprazole (PROTONIX) 40 mg EC tablet; Take 1 tablet (40 mg total) by mouth in the morning. 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 ([facility]) - SITagliptin phosphate (JANUVIA) 50 mg tablet; Take 1 tablet (50 mg total) by mouth in the morning. Type 2 DM -Managed by endocrine in beals She believes her A1c is below 7% -States blood sugars have been stable, lower than previous months Checks her sugars 4 times daily. Dexcom system Continue sliding scale Humalog as directed, Levemir as directed Continue Januvia Encourage routine home blood sugar monitoring, diet modification, and exercise regimen. Yearly eye exams Daily self skin foot checks Depression Depression: Not at risk (12/15/2023) PHQ-2 PHQ-2 Score: 0 Moods are stable with sertraline States she is taking 100 mg oral daily. GERD Limit or avoid trigger foods and beverages. Consider weight loss. Controlled with pantoprazole 40 mg oral daily CKD stage 3b Stable Is monitored by Dr. Ramos Creatinine 1.3 GFR 42 Stable Congestive heart Failure TAVR procedure 2022. History of severe aortic stenosis. NSTEMI HTN Controlled Continue amlodipine metoprolol succinate PVD Continue clopidogrel 75 mg daily Mixed hyperlipidemia Continue atorvastatin 80 mg oral daily Normal pressure hydrocephalus Managed routinely by neuro Stable URI Has been occurring since first week of November Start Zpak as directed Pyrilamine-dextromethorphan 7.5-7.5 mg / 5 ml. PRN as directed for cough and congestion Cool mist humidification for congestion, warm salt water gargles as needed for sore throat. Tylenol as needed per assistant press operator guidelines for fever or pain. Body mass index is 31.02 kg/m . Patient noted to have elevated BMI and the following intervention(s) were applied: Discussed current weight today. Consider healthy food choices, portion control. Avoid sugary beverages and high concentrated sweets. Routine exercise regimen encouraged. ALL QUESTIONS ANSWERED Total time spent was 30 minutes: Preparing to see the patient (e.g., review of tests) Obtaining and/or reviewing separately obtained history Performing a medically appropriate examination and/or evaluation Counseling and educating the patient/family/caregiver Ordering medications, tests, or procedures Follow-up: 5 months KAIDEN Werner 12/15/23 1559 documented in this encounter [facility] 11-25-2023 History of Present illness Narrative Images from the original note were not included. [facility] 11/25/23 Cuca Goodwin is a 78 y.o. year old female seen today in the oncology clinic. Chief Complaint Patient presents with Follow-up History of Present Illness: Mrs. Goodwin is a 78 y.o. female with history of aortic valve stenosis, she had PCI earlier in the year at [facility] for coronary disease. during the cardiac workup she was found to have a right breast lesion. Ultrasound showed in the 10:00 position right breast was performed by the technologist. Just beneath the skin there is a hypoechoic irregular mass that is taller than wide measuring 1.4 x 1.4 x 1.5 cm. This mass has spiculated margins and internal blood flow. Biopsy of the lesion shows invasive mammary carcinoma, grade 2, ER strongly positive CA moderately positive and HER2 negative. There was also suspicious spine lesion, MRI showed extensive bony lesions. Femara palliative intent 03/2023. Interval history: The patient is doing well on Femara treatment. She underwent TAVR surgery several months ago and recovered well. Currently she has not taking any blood thinner. She is on treatment daily with Femara, very compliant with according to her daughter. She denies any significant musculoskeletal discomfort. Back pain seems to be stable. No weight loss. Past Medical History: Diagnosis Date Anemia Arthritis Asthma very mild, no inhaler use Cataract Dental disease Depression Diabetes mellitus ([facility]) Diabetes mellitus type 2, controlled ([facility]) Encephalitis Foot fracture, left GERD (gastroesophageal reflux disease) Heart murmur HLD (hyperlipidemia) Hypertension Incontinence Injury of back Insulin dependent diabetes mellitus Kidney failure STAGE 4 Lumbar spondylolysis Murmur Obesity CHELSEA (obstructive sleep apnea) no machine Peptic ulceration Peripheral vascular disease ([facility]) Shortness of breath TIA (transient ischemic attack) Upper respiratory infection UTI (urinary tract infection) Visual impairment Wears dentures Past Surgical History: Procedure Laterality Date BREAST BIOPSY Right 03/01/2023 ULT BIOPSY CATARACT EXTRACTION SECTION SECTION 03/14/1974 EGD N/A 10/17/2019 Performed by Sang Bell DO at [facility] HYSTEROSCOPY DILATION CURETTAGE MYOSURE N/A 01/29/2021 Performed by Jv Briones MD at [facility] INJECTION BLOCK EPIDURAL CAUDAL STEROID N/A 08/14/2022 Performed by Arnulfo Gonzalez MD at [facility] INJECTION BLOCK EPIDURAL CAUDAL STEROID N/A 06/06/2021 Performed by Arnulfo Gonzalez MD at [facility] INJECTION BLOCK EPIDURAL CAUDAL STEROID N/A 04/25/2021 Performed by Arnulfo Gonzalez MD at [facility] INJECTION CAUDAL EPIDURAL WITH CATHETER, STEROID N/A 05/03/2020 Performed by Arnulfo Gonzalez MD at [facility] INJECTION CAUDAL EPIDURAL WITH CATHETER, STEROID N/A 11/24/2019 Performed by Arnulfo Gonzalez MD at [facility] INJECTION CAUDAL EPIDURAL WITH CATHETER, STEROID N/A 04/21/2019 Performed by Arnulfo Gonzalez MD at [facility] NERVE BLOCK Bilateral L 4/5, 5/1 Bilateral 08/18/2019 Performed by Arnulfo Gonzalez MD at [facility] INJECTION MEDIAL BRANCH NERVE BLOCK Bilateral L 4/5, 5/1 Bilateral 06/23/2019 Performed by Arnulfo Gonzalez MD at [facility] INJECTION STEROID EPI 1 WITH SEDATION Right L 4, 5 NR Right 03/17/2019 Performed by Arnulfo Gonzalez MD at [facility] INJECTION STEROID EPI 1 WITH SEDATION: right L45 nroot Right 08/15/2018 Performed by Arnulfo Gonzalez MD at [facility] LEFT L4, AND 5 NERVE ROOT INJECTION 2 OF 2 Left 07/22/2018 Performed by Arnulfo Gonzalez MD at [facility] LEFT L4, AND L5 NERVE ROOT 1 OF 2 Left 07/04/2018 Performed by Arnulfo Gonzalez MD at [facility] PERCUTANEOUS CORONARY INTERVENTION SHUNT INSERTION TONSILLECTOMY AGE 4 Transcutaneous aortic valve replacement/Transfemoral/Kwan N/A 08/17/2023 Performed by Chava Norris MD at [facility] Valvuloplasty aortic N/A 06/03/2023 Performed by Chava Norris MD at [facility] Family History Problem Relation Age of Onset Diabetes Mother Hypertension Father Coronary artery disease Father No Known Problems Brother Breast cancer Neg Hx Social History Socioeconomic History Marital status: Single Spouse name: Not on file Number of children: Not on file Years of education: Not on file Highest education level: Not on file Occupational History Not on file Tobacco Use Smoking status: Never Smokeless tobacco: Never Vaping Use Vaping Use: Never used Substance and Sexual Activity Alcohol use: No Drug use: No Sexual activity: Not Currently Partners: Male control/protection: Post-menopausal Other Topics Concern Caffeine Use No Social History Narrative Not on file Social Determinants of Health Financial Resource Strain: Low Risk (08/31/2023) Overall Financial Resource Strain (CARDIA) Difficulty of Paying Living Expenses: Not hard at all Food Insecurity: No Food Insecurity (09/28/2023) Hunger Screening Food Insecurity - Worry: Never True Food Insecurity - Inability: Never True Transportation Needs: No Transportation Needs (08/31/2023) PRAPARE - Transportation Lack of Transportation (Medical): No Lack of Transportation (Non-Medical): No Physical Activity: Inactive (10/05/2022) Exercise Vital Sign Days of Exercise per Week: 0 days Minutes of Exercise per Session: 0 min Stress: No Stress Concern Present (10/05/2022) [employer] - Occupational Stress Questionnaire Feeling of Stress : Not at all Social Connections: Moderately Isolated (10/05/2022) Social Connection and Isolation Panel [NHANES] Frequency of Communication with Friends and Family: Never Frequency of Social Gatherings with Friends and Family: Never Attends Druze Services: More than 4 times per year Active Member of Clubs or Organizations: Yes Attends Club or Organization Meetings: More than 4 times per year Marital Status: Never Interpersonal Safety: Not At Risk (10/05/2022) Humiliation, Afraid, Rape, and Kick questionnaire Fear of Current or Ex-Partner: No Emotionally Abused: No Physically Abused: No Sexually Abused: No No Known Allergies Medication List Accurate as of November 25, 2023 3:34 PM. If you have any questions, ask your nurse or doctor. Medications Continued This Visit acetaminophen 500 mg tablet Refills: 0 Dose: 1,000 mg Commonly known as: TYLENOL EXTRA STRENGTH amLODIPine 5 mg tablet Refills: 0 Dose: 5 mg Commonly known as: NORVASC aspirin 81 mg Refills: 0 Dose: 81 mg atorvastatin 80 mg tablet Refills: 0 Dose: 80 mg Commonly known as: LIPITOR blood-glucose meter misc Quantity: 1 each Refills: 0 Doctor's comments: Whatever covered by insurance For diagnoses: Controlled type 2 diabetes mellitus with diabetic nephropathy, without long-term current use of insulin ([facility]) Signed by: KAIDEN Santana Monitor blood sugars four times daily and as needed clopidogreL 75 mg tablet Refills: 0 Dose: 75 mg Commonly known as: PLAVIX COMFORT EZ PEN NEEDLES 32 gauge x 5/16 needle Quantity: 200 each Refills: 6 For diagnoses: Type 2 diabetes mellitus with stage 4 chronic kidney disease, with long-term current use of insulin ([facility]) Dose: 4 applicator Signed by: KAIDEN Santana 4 applicators, miscellaneous, See admin instructions, 4 times daily injection Generic drug: pen needle, diabetic DEXCOM G6 DISTILLERY MILLER HELPER misc Refills: 0 Dose: 1 Device Generic drug: blood-glucose meter,continuous DEXCOM G6 SENSOR device Refills: 0 Generic drug: blood-glucose sensor gabapentin 300 mg capsule Quantity: 180 capsule Refills: 1 Doctor's comments: 90 Day Supply. 1 refill For diagnoses: 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 mellitus ([facility]) Dose: 300 mg Signed by: KAIDEN Santana 300 mg, oral, 2 times daily Commonly known as: NEURONTIN hydroCHLOROthiazide 25 mg tablet Refills: 0 Dose: 25 mg Commonly known as: HYDRODIURIL insulin lispro 100 unit/mL insulin pen Refills: 0 For diagnoses: Mixed diabetic hyperlipidemia associated with type 2 diabetes mellitus ([facility]) Dose: 2 Units Signed by: RONNA Solis 2 Units, subcutaneous, 4 times daily with meals and nightly, Patient states only takes 2 units if BG over 200 (does NOT take set dose of 36 units with meals) Commonly known as: HumaLOG KwikPen Insulin * lancets misc Quantity: 200 each Refills: 0 Doctor's comments: Whatever covered by insurance For diagnoses: Controlled type 2 diabetes mellitus with diabetic nephropathy, without long-term current use of insulin ([facility]) Signed by: KAIDEN Santana Monitor blood sugars four times daily and as needed Commonly known as: onetouch ultrasoft * ONETOUCH DELICA PLUS LANCET 33 gauge misc Refills: 0 Generic drug: lancets letrozole 2.5 mg chemo tablet Quantity: 90 tablet Refills: 3 For diagnoses: 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 female breast, unspecified estrogen receptor status ([facility]) Dose: 2.5 mg Signed by: Dr. Rambo Muñoz MD 2.5 mg, oral, Daily Commonly known as: FEMARA LEVEMIR FLEXPEN 100 unit/mL (3 mL) insulin pen Quantity: 30 mL Refills: 3 For diagnoses: Controlled type 2 diabetes mellitus with diabetic nephropathy, without long-term current use of insulin ([facility]) Signed by: KAIDEN Santana INJECT 30 UNITS UNDER THE SKIN NIGHTLY Generic drug: insulin detemir U-100 metoprolol succinate XL 25 mg 24 hr tablet Quantity: 90 tablet Refills: 2 For diagnoses: Essential hypertension, Athscl heart disease of [place] coronary artery w/o ang pctrs Dose: 25 mg Signed by: KAIDEN Santana 25 mg, oral, Daily Commonly known as: TOPROL XL miscellaneous medical supply misc Quantity: 1 each Refills: 0 Doctor's comments: Patient needs pill cutter to halve medication. She is aware insurance may not cover For diagnoses: Medication management Dose: 1 Unit Signed by: KAIDEN Santana 1 Unit, miscellaneous, See admin instructions, Split oral medication as indicated ondansetron ODT 4 mg disintegrating tablet Quantity: 10 tablet Refills: 0 Dose: 4 mg Signed by: Dr. Giovanny Gustafson DO 4 mg, oral, Every 8 hours PRN Commonly known as: ZOFRAN ODT pantoprazole 40 mg EC tablet Quantity: 90 tablet Refills: 1 For diagnoses: GERD without esophagitis Dose: 40 mg Signed by: KAIDEN Santana 40 mg, oral, Daily Commonly known as: PROTONIX sertraline 100 mg tablet Quantity: 90 tablet Refills: 1 For diagnoses: Major depressive disorder in partial remission, unspecified whether recurrent ([facility]) Dose: 100 mg Signed by: Pam Ley, DIRECTOR INBOUND SALES-FINISHER HAND 100 mg, oral, Daily Commonly known as: ZOLOFT SITagliptin phosphate 50 mg tablet Quantity: 90 tablet Refills: 1 For diagnoses: Diabetes mellitus type 2, insulin dependent ([facility]), 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 ([facility]) Dose: 50 mg Signed by: LISA SantanaFINISHER HAND 50 mg, oral, Daily Commonly known as: JANUVJF traZODone 100 mg tablet Quantity: 90 tablet Refills: 1 For diagnoses: Insomnia, unspecified type Signed by: LISA SantanaFINISHER HAND TAKE 1 TABLET BY MOUTH EVERY DAY AT NIGHT Commonly known as: DESYREL * This list has 2 medication(s) that are the same as other medications prescribed for you. Read the directions carefully, and ask your doctor or other care provider to review them with you. Review of Symptoms: Review of Systems ECO- Symptomatic; fully ambulatory Physical Exam: General: Well appearing, in no acute distress. Vitals: BP 141/57 Pulse 65 Temp 37.2 C (99 F) (Oral) Resp 16 Ht 165.1 cm (5' 5 ) Wt 85.7 kg (189 lb) LMP (LMP Unknown) SpO2 91% BMI 31.45 kg/m Body mass index is 31.45 kg/m . Eyes: No icterus, no conjuctival erythema ENT: Pharyngeal mucosa was moist without exudate and inflammation or ulcerations. Tongue was midline and appeared normal.Gums were unremarkable. Lymph nodes: No palpable adenopathy Neck: Supple. There were no masses, tenderness. Trachea was midline. Respiratory: Respirations were non-labored. Lungs were clear to auscultation. There was no dullness to percussion. Cardiac: Regular rate and rhythm, S1 and S2 sounds were normal. There were no rubs or gallops. Abdomen: Soft, non-tender, Nondistended. Bowel sounds audible in all four quadrants. There were no palpable masses. The liver and spleen were not enlarged. Extremities: There was no clubbing, Cyanosis, edema. Skin: There was no obvious rashes, bruising or ecchymosis. Back exam: No palpable tenderness was appreciated. Neurologic: There was no unilateral weakness. Mood and affect: Normal. Breast exam: 1 cm breast lesion in right breast, 8 o'clock position close to the nipple. There is no axillary lymphadenopathy. Left breast is unremarkable. Recent Imaging: Ultrasound biopsy breast initial right Addendum Date: 03/09/2023 Addendum: ADDENDUM Final pathologic diagnosis: Right breast mass, core needle biopsy: Invasive mammary carcinoma grade 2. Surgical and oncologic consultation recommended. Finalized by Ryan Dominguez MD on 03/09/2023 8:51 AM Result Date: 03/09/2023 Narrative: ULTRASOUND-GUIDED CORE NEEDLE RIGHT BREAST BIOPSY 03/01/2023 HISTORY: Right breast mass COMPARISON: 02/24/2023 PROCEDURE: The risks, benefits, and alternatives of the procedure were explained in detail to the patient and both verbal and written informed consent were obtained. Preliminary sonographic evaluation confirmed the presence of a hypoechoic mass 10:00 position right breast. The skin was prepped and draped in usual sterile fashion. A timeout was performed verifying the correct patient, site and procedure. Local anesthesia was obtained using approximately 5 mL 1% lidocaine. Under ultrasound guidance, a 14-gauge Temno biopsy device was placed within the mass and multiple core biopsies were obtained. The samples are placed in formalin. A biopsy clip was then placed within the mass at the conclusion of the procedure. Manual hemostasis was obtained. The patient tolerated the procedure well. There were no immediate complications. A postprocedure two-view mammogram demonstrated the biopsy clip well positioned. IMPRESSION: Uncomplicated ultrasound-guided core needle biopsy of right breast mass. Pathology pending. Finalized by Ryan Dominguez MD on 03/01/2023 1:36 PM Mammography post biopsy diagnostic unilateral right Result Date: 03/01/2023 Narrative: MAMM POST BX DIAG UNI RT CLINICAL: Post Biopsy Right Breast Clip placement. Current study was also evaluated with a Computer Aided Detection (CAD) system. Comparison is made to exams dated: 02/24/2023 and priors Following the biopsy, a digital mammogram was obtained in a separate room and viewed on a dedicated work station. This was obtained to evaluate the biopsy clip position. The biopsy clip is seen in the appropriate position in the right breast. IMPRESSION: POST PROCEDURE MAMMOGRAM FOR MARKER PLACEMENT Finalized by Ryan Dominguez MD on 03/01/2023 1:41 PM 2000 Ultrasound breast limited right Result Date: 03/01/2023 Narrative: ULTRASOUND BREAST RIGHT LIMITED HISTORY: Abnormal mammogram COMPARISON: Diagnostic mammogram 02/24/2023 and priors FINDINGS: Focused ultrasound in the 10:00 position right breast was performed by the technologist. Just beneath the skin there is a hypoechoic irregular mass that is taller than wide measuring 1.4 x 1.4 x 1.5 cm. This mass has spiculated margins and internal blood flow. IMPRESSION: BIRADS 5 - Findings are highly suggestive of malignancy. Biopsy is indicated. This right breast mass would be amenable to ultrasound-guided core needle biopsy. OVERALL ASSESSMENT- HIGHLY SUGGESTIVE OF MALIGNANCY. A letter of notification will be sent to the patient regarding the results. Finalized by Ryan Dominguez MD on 03/01/2023 1:35 PM 5 BIOPSY Recent Labs: No results found for this or any previous visit (from the past 336 hour(s)). Diagnosis Problem list: Problem List Items Addressed This Visit Other 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 breast in female, estrogen receptor positive (CMS-HCC) Other Visit Diagnoses 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 female breast, unspecified estrogen receptor status (CMS-HCC) - Primary Relevant Orders CBC with auto diff Comprehensive metabolic panel Cancer antigen 15-3 Cancer antigen 27-29 Impression: Right-sided breast cancer, ERPR positive HER2 negative Aortic valve stenosis Coronary artery disease post PCI On anticoagulation for AFib Extensive bony lesions Plan: The patient's thoracic and lumbar MRI showed suspicious bony lesion worrisome for metastasis from breast cancer. First-line systemic treatment for metastatic breast cancer is hormone willi such as aromatase inhibitor in form of Femara. Disease progression survival on aromatase inhibitor is about 18 months. Over the past months the patient is tolerating treatment very well. Back pain is under control Right breast ultrasound showed her breast lesion is stable. In May 2023, patient underwent a successful aortic balloon valvuloplasty Continue Femara for now. Pet SCAN 02/2024. F/u in late 02/2024 to review results. Continue femara alone. Labs before appt: CBC, CMP, CA 15-3, CA 27.29. Rambo Muñoz MD Please note that portions of this note were generated using voice recognition M*Modal dictation software. Although every effort was made to ensure the accuracy of this automated power transformer repairer, some errors in power transformer repairer may have occurred. CC: Patient Care Team: KAIDEN Werner as PCP - General (Family Medicine) Simeon Quiles MD (Nephrology) KAIDEN Hsu as Nurse Practitioner (Pulmonary Medicine) Madison Ye MD as Referring Physician (Endocrinology, Diabetes & Metabolism) Rambo Muñoz MD as Consulting Physician (Hematology) PCP:Pam Ley Referring MD: Pam Ley AP* documented in this encounter [facility] 11-25-2023 Instructions Rambo Muñoz MD - 11/25/2023 2:30 PM EST Pet SCAN 02/2024. F/u in late 02/2024 to review results. Continue femara alone. Labs before appt: CBC, CMP, CA 15-3, CA 27.29. documented in this encounter [facility] 03-23-2023 Note SUBJECTIVE: Chief complaint: USER ACCEPTANCE TESTER shunt adjustment status post 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 History of present illness: Return visit for NPH status post USER ACCEPTANCE TESTER shunt. Had MRI thoracic and lumbar spine done at [facility] last week due to concern for spinal [...] IV CONTRAST 05/07/2020 TONSILLECTOMY VENTRICULOPERITONEAL SHUNT 06/25/2020 Yecenia Buciom programmable valve. Social History Tobacco Use Smoking status: Never Smokeless tobacco: Never Substance Use Topics Alcohol use: Never Drug use: Never Family History Problem Relation Name Age of Onset Diabetes Mother Hypertension Father Coronary artery disease Father OBJECTIVE: Medications: acetaminophen amLODIPine aspirin atorvastatin blood-glucose meter [facility] cefuroxime cholecalciferol (vitamin D3) clopidogrel Dexcom G6 Sensor device ferrous sulfate FreeStyle Kartik 14 Day [place] [facility] FreeStyle Kartik 14 Day Sensor kit furosemide gabapentin hydroCHLOROthiazide insulin lispro lancets [facility] letrozole Levemir FlexPen insulin pen melatonin capsule metoprolol succinate XL metoprolol tartrate miscellaneous medical supply [facility] mupirocin ONETOUCH ULTRA BLUE TEST STRIP [facility] OneTouch Ultra Test strip oxybutynin oxybutynin XL [...] sugar diagnostic (ONETOUCH ULTRA BLUE TEST STRIP [facility]), OneTouch Ultra Blue Test Strip, Disp: , Rfl: blood sugar diagnostic (OneTouch Ultra Test) strip, OneTouch Ultra Test strips 1 STRIP BY OTHER ROUTE 4 (FOUR) TIMES A DAY BEFORE MEALS AND NIGHTLY., Disp: , Rfl: blood-glucose meter misc, OneTouch Ultra2 Meter, Disp: , Rfl: blood-glucose meter misc, Monitor blood sugars four times daily and [...] FreeStyle Kartik reader (FreeStyle Kartik 14 Day [place]) misc, FreeStyle Kartik 14 Day [place], Disp: , Rfl: FreeStyle Kartik sensor system [...] (U-100) Insulin 10 (more content not included)... [facility] 12-11-2022 History of Present illness Narrative Patient discharged home. Discharge instructions were explained and given to the patient, patient verbalized understanding. All belongings were sent with the patient. No signs of acute distress noted, no concerns voiced. Physical Therapy Facility/Department: [address] [place] Physical Therapy Name: Cuca Goodwin : 1945 [...] Time Individual Concurrent Group Co-treatment Time In 0935 Time Out 1000 Minutes 25 Sasha Maldonado, PT Physical Therapy Facility/Department: [address] [place] Daily Treatment Note NAME: Cuca [...] from the original note were not included. [employer] Progress Note Date: 12/09/2022 Patient name: Cuca [...] BMP: Recent Labs 12/08/22 0251 12/08/22 1258 01/25/23 0741 NA 142 139 137 K 4.7 4.4 4.1 CL 110* 106 106 CO2 25 24 21 BUN 23 21 19 CREATININE 1.43* 1.33* 1.33* GLUCOSE 124* [...] a max pressure of: 12 graciela. Resolute Ric 3.0 x 12 CÉSAR. 1 inflation(s) to [...] 182 cm. Number of passes: 1. Resolute Aubrey 2.5 x 12 CÉSAR. 1 inflation(s) to [...] stable. Plans for TAVR work-up as OP [employer] [facility]. [phone] Physical Therapy Facility/Department: [address] [place] Physical Therapy Initial Assessment Name: Cuca Goodwin [...] pt repositioned in bed for comfort upon curriculum writer's exit. Subjective Subjective: RN and pt in [...] rollator at baseline) Transfer Assistance: Independent Active [employer] Department Manager: No Mode of Transportation: Friends, Cab Occupation: [...] from the original note were not included. [employer] Progress Note Date: 12/08/2022 Patient name: Cuca [...] a max pressure of: 12 graciela. Resolute Ric 3.0 x 12 CÉSAR. 1 inflation(s) to [...] 182 cm. Number of passes: 1. Resolute Aubrey 2.5 x 12 CÉSAR. 1 inflation(s) to [...] stable Plans for TAVR work-up as OP [employer] [facility]. [phone] Pressure Washer discussed the next step in the TAVR process, an appointment with the cardiothoracic surgeon, with patient and daughter at bedside in [facility]. Office number given to daughter, she will call to schedule in the next couple days. Pressure Washer's contact number also given. Patient declined AM [...] to Joelle PIERRE. Patient transported to room [facility] via stretcher. Right groin assessed by Joelle [...] Manual pressure held Manual pressure held per curriculum writer for [address] Martinez at bedside to assess. Order for POC H & H received. Hemaglobin 6.9. Stat lab draw ordered. Dr Martinez at bedside to assess. Order for LLE vascualr scan received. 1 Patient admitted, consent signed and questions answered. Patient ready for procedure. Call light to reach with side rails up 2 of 2. Bilateral groin areas clipped with curriculum writer and Maggi estrada present. Daughter Ismael at bedside with patient. History and physical needs updated. Received post cardiac cath procedure to [facility] room 10. Assessment obtained. Restrictions reviewed with patient. Post procedure pathway initiated. Right site noted to have small hematoma, manual pressure held by Juana. Band aid dry and intact. Family at side. Patient without complaints. Head of bed flat with right leg straight. documented in this encounter [facility] [employer] [facility] [address] Work Phone: 12-07-2022 Note [facility] Vascular Lower Extremities Arterial Duplex Procedure Patient Name CHRISTA Date of Study 12/07/2022 [facility] Date of 1945 Gender Female Age 77 year(s) Race Room Number 0501 Height: 65 inch, 165.1 cm Corporate ID # [id number] Weight: 208 pounds, 94.3 kg Patient BSA: 2.01 m^2 BMI: 34.61 kg/m^2 MR # [id number] Relay Dispatcher Whit Gan RVT Interpreting Physician Darnell Monique [...] are measured in cm LE Duplex Measurements +---------++-----+-----+------+--- -+------++---+-----+------+----+-- -------+ ! !!Right! !Left ! ! !! ! ! ! ! ! +---------++-----+-----+------+--- -+------++---+-----+------+----+-- -------+ !Location !!PSV !Ratio!Wave !AP !Trans !!PSV!Ratio!Wave !AP !Trans ! ! !! ! !Desc. !Diam!Diam !! ! !Desc. !Diam!Diam ! +---------++-----+-----+------+--- -+------++---+-----+------+----+-- -------+ !Dist EIA !!185 ! ! ! ! !! ! ! ! ! ! +---------++-----+-----+------+--- -+------++---+-----+------+----+-- -------+ !Common !!162 !0.88 ! ! ! !! ! ! ! ! ! !Femoral !! ! ! ! ! !! ! ! ! ! ! +---------++-----+-----+------+--- -+------++---+-----+------+----+-- -------+ !Prox SFA !!174 ! ! ! ! !! ! ! ! ! ! +---------++-----+-----+------+--- -+------++---+-----+------+----+-- -------+ [facility] 11-24-2022 History of Present illness Narrative Patient admitted, consent signed and questions answered. Patient ready for procedure. Call light to reach with side rails up 2 of 2. Bilateral groin areas clipped with curriculum writer and Jose PIERRE present. Daughter Ileana at bedside with patient. History and physical needs updated. documented in this encounter [employer] Phone: 03-20-2021 Note PROCEDURE: XR FOOT L T MIN 3 VIEWS COMPARISON: None. HISTORY: Pain FINDINGS: BONES:No acute fracture or dislocation. Persistent flexion of the toes limits their evaluation. Mild to moderate degenerative changes with joint space narrowing and marginal osteophyte formation, most significant at the first metatarsophalangeal joint where [id number]-vr-[id number] endplate is observed SOFT TISSUES:Negative. No visible soft tissue swelling. EFFUSION:None visible. OTHER: Negative. IMPRESSION: Moderate degenerative changes, no acute fracture Electronically authenticated by: GIOVANNY NICOLE Date: 2021-03-20 08:29 [facility] Evaluation note Diagnosis Severe aortic valve stenosis- Primary Aortic valve disorders documented in this encounter [facility] Phone: [email or web address] note* Diagnosis RAIN (acute kidney injury) (HCC)- Primary Acute kidney failure, unspecified documented in this encounter [facility] Phone: [email or web address] note* Diagnosis Severe aortic valve stenosis- Primary [...] kidney disease (HCC) Coronary artery disease involving [place] coronary artery of [place] heart without angina pectoris documented in this encounter [employer] Phone: [email or web address] note* Diagnosis Aortic valve stenosis, etiology of cardiac valve disease unspecified documented in this encounter [facility] Phone: evaluation note* Diagnosis Aortic valve stenosis, etiology of cardiac valve disease unspecified documented in this encounter JEAN [employer] Phone: evaluation note* Diagnosis 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 female breast, unspecified estrogen receptor status ([facility])- Primary documented in this encounter [facility] System[facility]* Diagnosis Insomnia, unspecified type documented in this encounter [facility] System[facility] note* Diagnosis Upper respiratory tract infection, unspecified type- Primary Normal pressure hydrocephalus ([facility]) 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 ([facility]) PVD (peripheral vascular disease) ([facility]) Unspecified peripheral vascular disease 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 mellitus ([facility]) Stage 3b chronic kidney disease ([facility]) Major depressive disorder in partial remission, unspecified whether recurrent ([facility]) Essential hypertension Unspecified essential hypertension GERD without esophagitis Esophageal reflux 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 ([facility]) documented in this encounter [facility] [facility] note* Diagnosis 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 female breast, unspecified estrogen receptor status ([facility]) documented in this encounter [facility] note* Diagnosis Acute cystitis without hematuria- Primary Urge incontinence of urine Urge incontinence [facility] Attachments The following attachments cannot be sent through Care Everywhere. * PCI (Percutaneous Coronary Intervention): Post-op ([place]) [facility] [employer] Phone: InstructionsNot on filedocumented in this encounter [facility] [facility] SystemInstructions* Attachments The following attachments cannot be sent through Care Everywhere. * Bacterial Upper Respiratory Infection, Adult ([place]) [facility] System[facility]Not on file [facility] System[facility]* Attachments The following attachments cannot be sent through Care Everywhere. * Urinary Tract Infection Discharge Instructions, Adult ([place]) [facility] Advance Directives No Advanced Directives Records FoundDocuments on File Type Date Recorded Patient Maxillofacial Pathology Expl anation ACP-Advance Directive ACP-Power of High Lift Driver Latest Code Status on File Code Status [...] Documents on File Type Date Recorded Patient Maxillofacial Pathology Expl anation ACP-Advance Directive 12/14/2022 2:27 PM Latest Code Status on File Code Status Date Activated Date Inactivated Comments Full Code 12/07/2022 11:24 AM 12/11/2022 1:10 PM Full Code 11/24/2022 11:19 AM 11/25/2022 2:46 AM Full Code 09/28/2022 4:15 AM 09/30/2022 6:37 PM Full Code 10/15/2014 1:49 PM 10/15/2014 8:39 PM Documents on File Type Date Recorded Patient Maxillofacial Pathology Expl anation ACP-Advance Directive 12/14/2022 2:27 PM Latest Code Status on File Code Status Date Activated Date Inactivated Comments Full Code 12/07/2022 11:24 AM 12/11/2022 1:10 PM Documents on File Type Date Recorded Patient Maxillofacial Pathology Expl anation Durable Power of High Lift Driver 10/21/2022 2:24 PM DNR Physician Order 10/21/2022 2:24 PM Living Will 01/30/2021 12:07 PM Durable Power of High Lift Driver 01/30/2021 12:07 PM Living Will 01/29/2021 6:19 AM Advance Directive 01/29/2021 6:18 AM DNR Physician Order 11/03/2019 1:27 PM Latest Code Status on File Code Status Date Activated Date Inactivated Comments Full Code 03/28/2023 5:07 PM 04/01/2023 3:32 PM Code Status History Code Status Date Activated Date Inactivated Comments DNR Comfort Care Arrest (DNR-CCA) [place] 10/06/2022 8:43 AM 10/06/2022 8:41 PM Full Code 10/05/2022 8:37 AM 10/06/2022 8:43 AM Full Code 05/26/2022 4:03 PM 05/28/2022 5:26 PM Full Code 11/29/2020 4:02 PM 12/01/2020 6:56 PM Summary Purpose Family History No Family [...] C STC MORP CARD ONLY Namrata Blair, DIRECTOR INBOUND SALES - [employer] [address] [place] [address] Referral ID Status Reason Start Date Expiration Date Visits Re quested Visits Authorized [id number] Closed 01/11/2023 04/10/2023 1 1 Specialty Diagnoses / Procedures Referred By Contac t Referred To Contact Radiology Diagnoses Aortic valve stenosis, etiology of cardiac valve disease unspecified Procedures CTA CHEST ABDOMEN PELVIS W CONTRAST Namrata Blair, DIRECTOR [employer] SALES - [employer] [address] [place] [address] Referral ID Status Reason Start Date Expiration Date Visits Re quested Visits Authorized [id number] Closed 01/11/2023 04/10/2023 1 1 Additional Source Comments INFORMATION SOURCE (unrecogn ized section and content) DATE CREATED AUTHOR 03/27/2021 [facility] DATE CREATED AUTHOR AUTHOR'S ORGANIZ ATION 04/09/2021 [facility] DATE CREATED AUTHOR AUTHOR'S ORGANIZ ATION 04/06/2022 [facility] DATE CREATED AUTHOR AUTHOR'S ORGANIZ ATION 01/22/[address] [facility] DATE CREATED AUTHOR AUTHOR'S ORGANIZ ATION 02/07/2024 [facility] DATE CREATED AUTHOR AUTHOR'S ORGANIZ ATION 02/11/2024 [facility] DATE CREATED AUTHOR AUTHOR'S ORGANIZ ATION 02/12/2024 [facility] DATE CREATED AUTHOR AUTHOR'S ORGANIZ ATION 02/20/2024 [facility] Reason for Visit (unrecogniz ed section and content) Specialty Diagnoses / Procedures Referred By Polo t Referred To Contact [facility] [address] [place] [address] Referral ID Status Reason Start Date Expiration Date Visits Re quested Visits Authorized [id number] 1 1 Referral ID Status Reason Start Date Expiration Date Visits Re quested Visits Authorized [id number] 1 1 Specialty Diagnoses / Procedures Referred By Polo t Referred To Contact Radiology Diagnoses Aortic valve stenosis, etiology of cardiac valve disease unspecified Procedures CT CARDIAC W C STC MORP CARD ONLY Namrata Blair, DIRECTOR [employer] SALES - [employer] [address] [place] [address] Referral ID Status Reason Start Date Expiration Date Visits Re quested Visits Authorized [id number] Closed 01/11/2023 04/10/2023 1 1 Specialty Diagnoses / Procedures Referred By Polo tobias Referred To Contact Radiology Diagnoses Aortic valve stenosis, etiology of cardiac valve disease unspecified Procedures CTA CHEST ABDOMEN PELVIS W CONTRAST Namrata Blair, DIRECTOR [employer] SALES - [employer] [address] [place] [address] Referral ID Status Reason Start Date Expiration Date Visits Re quested Visits Authorized [id number] Closed 01/11/2023 04/10/2023 1 1 Reason Comments Follow-up Reason Onset Date Comments Med Refill 12/06/2023 Reason Comments Cough Nasal Congestion Reason Comments Med Refill Reason Comments incontinence Care Teams (unrecognized sec tion and content) Sheet Metal Worker Apprentice Relationship Specialty Start Date End Date Caden Sanchez PCP - General Family Medicine 09/29/22 Sheet Metal Worker Apprentice Relationship Specialty Start Date End Date Caden Sanchez PCP - General Family Medicine 09/29/22 Sheet Metal Worker Apprentice Relationship Specialty Start Date End Date Caden Sanchez PCP - General Family Medicine 09/29/22 Sheet Metal Worker Apprentice Relationship Specialty Start Date End Date Caden Sanchez PCP - General Family Medicine 09/29/22 Sheet Metal Worker Apprentice Relationship Specialty Start Date End Date Caden Sanchez PCP - General Family Medicine 09/29/22 Sheet Metal Worker Apprentice Relationship Specialty Start Date End Date Pam Ley, DIRECTOR INBOUND SALES - [facility] [address] [place] [address] PCP - General 01/15/23 Sheet Metal Worker Apprentice Relationship Specialty Start Date End Date Pam Ley DIRECTOR INBOUND SALES - [facility] [address] [place] [address] PCP - General 01/15/23 Sheet Metal Worker Apprentice Relationship Specialty Start Date End Date Pam Ley DIRECTOR INBOUND SALES-[facility] [address] [place] [address] PCP - General Family Medicine 09/28/23 Sheet Metal Worker Apprentice Relationship Specialty Start Date End Date Pam Ley DIRECTOR [employer] SALES-[facility] [address] [place] [address] PCP - General Family Medicine 09/28/23 Sheet Metal Worker Apprentice Relationship Specialty Start Date End Date Pam Ley DIRECTOR [employer] SALES-[employer] [address] [place] [address] PCP - General Family Medicine 09/28/23 Sheet Metal Worker Apprentice Relationship Specialty Start Date End Date Pam Ley DIRECTOR [employer] SALES-[facility] [address] [place] [address] PCP - General Family Medicine 09/28/23 Ordered Prescriptions (unrec ognized section and content) [...] GABBY) 08 (Given - Provider: Jacqueline Medina, RN) 08 (Given - Provider: Stefanie Lu, GABBY) atorvastatin (LIPITOR) tablet 80 mg 80 mg, Oral, NIGHTLY, First dose on Wed12/07/22 at 2100, Until Discontinued 2024 (Given - Provider: Tamika Villavicencio, GABBY) 1956 (Given - Provider: Libia Lyons RN) 2099 (Due) clopidogrel (PLAVIX) tablet 75 mg 75 mg, Oral, DAILY, First dose on Wed12/08/22 at 0900, Until Discontinued 925 (Given - Provider: Jacqueline Medina, GABBY) 801 (Given - Provider: Jacqueline Medina, GABBY) 0846 (Given - Provider: Stefanie Lu, GABBY) insulin glargine (LANTUS) injection vial 10 Units 10 Units, SubCUTAneous, NIGHTLY, First dose (after last modification) on Wed12/11/22 at 2100, Until Discontinued, Substituted for Levemir 2099 (Due) insulin glargine (LANTUS) injection vial 20 Units (CANCELED) 20 Units, SubCUTAneous, NIGHTLY, First dose on Wed12/07/22 at 2100, Until Discontinued, Substituted for Levemir 2124 (Given - Provider: Tamika Villavicencio, GABBY) polyethylene glycol (GLYCOLAX) packet 17 g (CANCELED) 17 g, Oral, DAILY, First dose on Wed12/09/22 at 2100, Until Discontinued, Stir and dissolve one packet of powder (17 g) in any 4 to 8 ounces of beverage (cold, hot or room temperature) then drink 2125 (Given - Provider: Tamika Villavicencio, GABBY) sertraline (ZOLOFT) tablet 100 mg 100 mg, Oral, DAILY, First dose on Wed12/07/22 at 1645, Until Discontinued 0926 (Given - Provider: Jacqueline Medina RN) 0802 (Given - Provider: Jacqueline Medina RN) 0846 (Given - Provider: Stefanie Lu RN) sodium chloride flush 0.9 % injection 5-40 [...] Villavicencio RN - Reason: IV Fluid Infusing) 0804 (Not Given - Provider: Jacqueline Medina RN - Reason: IV Fluid Infusing)1956 (Given - Provider: Libia Lyons RN) 0847 (Given - Provider: Stefanie uL RN)2100 (Due) Continuous Medication Order 12/09/2022 12/10/2022 12/11/2022 0.9 % sodium chloride infusion (CANCELED) IntraVENous, at 75 mL/hr, CONTINUOUS, Starting on Wed12/07/22 at 1145, Pre-Procedure(Cath) 0328 (New Bag - Provider: Tamika Villavicencio, GABBY)0329 (Paused - Provider: Tamika Villavicencio, RN)0329 (Restarted - Provider: Tamkia Villavicencio RN)0638 (Rate/Dose Verify - Provider: Tamika Villavicencio RN)1301 (Stopped - Provider: Tamika Villavicencio RN)1849 (New Bag - Provider: Jacqueline Medina RN)1954 (New Bag - Provider: Tamika Villavicencio [...] hours., Recovery(Cath) 0947 (Given - Provider: Jacqueline Medina RN) bisacodyl (DULCOLAX) EC tablet 10 mg 10 mg, Oral, DAILY PRN, Starting on Wed12/09/22 at 2143, Until Discontinued, Constipation, Do not crush or break. 2300 (Given - Provider: Tamika Villavicencio RN) dextrose 10 % infusion IntraVENous, at 100 mL/hr, CONTINUOUS PRN, if blood glucose remains LESS THAN 70 mg/dL after 2 dextrose 10% intravenous boluses or administration of glucagon, Starting on Kim 12/10/22 at 0823, If blood glucose fails to [...] or NPO, Starting on Kim 12/10/22 at 0823, Repeat blood glucose in 15 [...] or NPO, Starting on Kim 12/10/22 at 0823, Repeat blood glucose in 15 [...] 0730, CT imaging planned for 1030. Fany RN will be bringing pt back and for [...] BE BASED ON THE PRIMARY CLINICAL RECORDS. [email or web address] provides no warranty or guarantee of the accuracy or completeness of information in this document.
[2024-02-27 13:58] LABS: Glucometer 201 mg/dL (74-106)
[2024-02-27 14:09] LABS: Basophils Absolute Auto 0.1 10^3/uL (0.0-0.1); Basophils Percent Auto 0.8 % (0.2-2.0); Eosinophils Absolute Auto 0.2 10^3/uL (0.0-0.7); Eosinophils Percent Auto 3.6 % (0.9-7.0); Hematocrit 34.1 % (36.0-48.0); Hemoglobin 10.5 g/dL (12.0-16.0); Immature Granulocytes Abs Auto 0.02 10^3/uL (0.00-0.03); Immature Granulocytes Pct Auto 0.3 % (0.0-0.5); Lymphocytes Absolute Auto 1.8 10^3/uL (1.2-3.8); Lymphocytes Percent Auto 27.3 % (20.5-60.0); Mean Corpuscular HGB Conc 30.8 g/dL (29.9-35.2); Mean Corpuscular Hemoglobin 27.9 pg (26.7-34.0); Mean Corpuscular Volume 90.7 fL (81.0-99.0); Mean Platelet Volume 10.6 fL (9.5-13.5); Monocytes Absolute Auto 0.7 10^3/uL (0.3-0.8); Monocytes Percent Auto 11.1 % (1.7-12.0); Neutrophils Absolute Auto 3.6 10^3/uL (1.4-6.5); Neutrophils Percent Auto 56.9 % (43.0-75.0); Platelet Count 261 10^3/uL (150-450); Red Blood Count 3.76 10^6/uL (4.20-5.40); Red Cell Distribution Width 14.9 % (11.0-15.0); White Blood Count 6.4 10^3/uL (4.0-11.0)
[2024-02-27 14:10] LABS: Bilirubin Urine NEGATIVE (NEGATIVE); Blood Urine TRACE-I (NEGATIVE); Clarity Urine CLEAR (CLEAR); Color Urine YELLOW (YELLOW); Glucose Urine UA >=1000 mg/dL (NEGATIVE); Ketones Urine NEGATIVE (NEGATIVE); Leukocyte Esterase Urine NEGATIVE (NEGATIVE); Nitrite Urine NEGATIVE (NEGATIVE); Protein Urine NEGATIVE (NEG/TRACE); Specific Gravity Urine 1.025 (1.005-1.025); Urobilinogen Urine 0.2 EU/dL (0.2-1.0)
[2024-02-27 14:15] LABS: Urine Microscopic Indicated YES
[2024-02-27 14:18] LABS: Bacteria Urine NONE SEEN #/HPF (NONE SEEN); Cast Seen? NONE SEEN #/LPF (NONE SEEN); Crystals Seen? None Seen #/HPF (None Seen); Mucus Urine NONE SEEN (NONE SEEN); RBC Urine 0-2 #/HPF (0-2); Squamous Epithelial Cell Urine NONE SEEN #/LPF (NONE/RARE); WBC Urine NONE SEEN #/HPF (NONE SEEN)
[2024-02-27 14:25] LABS: INR 0.96; Partial Thromboplastin Time 26.8 sec (22.3-36.2); Prothrombin Time 10.2 sec (9.0-11.6)
[2024-02-27 14:26] LABS: Anion Gap 11.8
[2024-02-27 14:28] LABS: Alanine Aminotransferase 14 U/L (14-59); Albumin Globulin Ratio 0.8; Albumin Level 3.4 g/dL (3.4-5.0); Alkaline Phosphatase 97 U/L (46-116); Aspartate Amino Transferase 25 U/L (15-37); BUN Creatinine Ratio 18.8; Bilirubin Total 0.4 mg/dL (0.2-1.0); Calcium 9.5 mg/dL (8.5-10.1); Carbon Dioxide 27.9 mmol/L (21.0-32.0); Chloride 105 mmol/L (98-107); Estimated GFR (African America 47 (>=60); Estimated GFR (Non-African Ame 39 (>=60); Globulin 4.5 g/dL; Glucose 201 mg/dL (74-106); Magnesium 1.9 mg/dL (1.8-2.4); Potassium 4.7 mmol/L (3.5-5.1); Sodium 140 mmol/L (136-145); Total Protein 7.9 g/dL (6.4-8.2); Troponin I High Sensitivity 10.5 pg/mL (4.0-51.3)
--- NOTE | 2024-02-27 14:42 | ED_ITS ---
HPI - Neuro Symptoms/Deficit General Chief Complaint: Neuro Symptoms/Deficit Stated Complaint: cva Time Seen by Provider: 02/27/24 13:39 Source: patient Mode of arrival: ambulance Limitations: no limitations History of Present Illness HPI Narrative: The patient presenting to us for concern of possible difficulty speaking, the history was not clear as per the daughter but she mentioned that the patient last known well at 2 AM when she went to sleep, at 7 AM when she woke up this morning she noticed some difficulty in her speech, although is not difficulty finding words and there is no difficulty speaking but she feels that her tongue movements is different, no headache no nausea no vomiting, according to the daughter also her balance was different as she have some balance issue when standing up and walking, the patient herself is denying any weakness in her arms or legs she is denying any double vision or headache. The patient had no burning with urination no abdominal pain no fever no chills and review of system otherwise is negative. Patient presenting to us almost at 1:56 PM which is almost 12 hours after her last known well Related Data Home Medications ?Medication ?Instructions ?Recorded ?Confirmed clopidogrel 75 mg tablet 75 mg PO QDAY 09/30/23 09/30/23 gabapentin 300 mg capsule 300 mg PO Q12H 09/30/23 09/30/23 insulin detemir U-100 100 unit/mL 30 unit subcut QPM 09/30/23 09/30/23 (3 mL) subcutaneous pen (Levemir FlexPen) letrozole 2.5 mg tablet 2.5 mg PO Q24H 09/30/23 09/30/23 metoprolol succinate 50 mg 50 mg PO QDAY 09/30/23 09/30/23 tablet,extended release 24 hr ondansetron 4 mg disintegrating 4 mg PO Q8H PRN nausea and vomiting 09/30/23 09/30/23 tablet pantoprazole 40 mg tablet,delayed 40 mg PO QDAY 09/30/23 09/30/23 release sertraline 100 mg tablet 100 mg PO QAM 09/30/23 09/30/23 sitagliptin phosphate 50 mg tablet 50 mg PO QAM 09/30/23 09/30/23 (Januvia) trazodone 100 mg tablet 100 mg PO QPM 09/30/23 09/30/23 Allergies Allergy/AdvReac Type Severity Reaction Status Date / Time No Known Drug Allergies Allergy Verified 09/30/23 16:22 Review of Systems ROS Status of ROS 10 or more systems reviewed and unremark able except as noted in history and below [facility] Medical History (Updated 02/27/24 @ 14:49 by Pat Burroughs MD) Breast CA ?C50.919 - Malignant neoplasm of unspecified site of unspecified female breast (ICD-10) CAD (coronary artery disease) ?I25.10 - Atherosclerotic heart disease of picayune coronary artery without ang katie pectoris (ICD-10) Depression ?F32.A - Depression, unspecified (ICD-10) GERD (gastroesophageal reflux disease) ?K21.9 - Gastro-esophageal reflux disease without esophagitis (ICD-10) Hypertension ?I10 - Essential (primary) hypertension (ICD-10) Diabetes ?E11.9 - Type 2 diabetes mellitus without complications (ICD-10) Surgical History S/P mitral valve replacement with bioprosthetic valve ?Z95.3 - Presence of xenogenic heart valve (ICD-10) Social History Within the past year, how often did you have a drink containing alcohol: never Score interpretation: A score less than 3 is consistent with normal alcohol consumption. 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 Known occupational exposures/hazards: No Highest level of school completed/degree received: high school graduate Do you want help with school or training: No Are you now , , , , never or living with a partner: never In a typical week, how many times do you talk on the telephone with family, friends, or neighbors: 3 or more times per week How often do you get together with friends or relatives: never How often do you attend yarsanism or evangelical services: 4 or more times per year Do you belong to any clubs or organizations such as yarsanism groups unions, [employer] or athletic groups, or school groups: no Total score: 2 Score interpretation: A score of greater than or equal to 2 indicates the lowest level of social isolation. Little interest or pleasure in doing things: not at all Feeling down, depressed, or hopeless: not at all Feel stressed/tense/nervous/anxious/difficulty sleeping: not at all Due to disability, difficulty making decisions: No Do you think of yourself as: straight/heterosexual Gender Identity: female Exam Narrative Exam Narrative: Nurses notes and vital signs reviewed and patient is not hypoxic. General: Well-appearing and in no apparent distress. Skin: Warm, dry, no pallor noted. No rash. Head: Normocephalic, atraumatic. Neck: Supple, non-tender. Eye: Pupils are equal, round and EOMI. No scleral icterus. Ears, Nose, Mouth, and Throat: TM are clear, no nasal mucosal hypertrophy. Oral mucosa is moist, no posterior oropharynx erythema, uvula is mid-line Cardiovascular: Regular Rate and Rhythm without murmur, gallop or rub. Respiratory: No accessory muscle use or respiratory distress. Lungs are clear to auscultation, no wheezing, rales or rhonchi Chest Wall: no tenderness Back: No midline thoracic or lumbar vertebral tenderness. No CVA tenderness Musculoskeletal: normal ROM, no calf or popliteal tenderness, no lower extremity edema/swelling GI: Abdomen is soft, non-distended. Normal bowel sounds. No masses appreciated. No tenderness to palpation. No rebound, guarding, or rigidity noted. Neurological: A&O x4. No cranial nerve dysfunction observed. No truncal ataxia. Moves all extremities. Sensation intact. Psychiatric: Cooperative and interactive. Normal mood and affect. NIH score is 0 Constitutional Vital Signs, click to edit/add: Last Vital Signs Temp 98.2 F 02/27/24 13:47 Pulse 69 02/27/24 13:47 Resp 18 02/27/24 13:47 BP 164/69 H 02/27/24 13:47 Pulse Ox 98 02/27/24 14:11 O2 Del Method Room Air 02/27/24 14:11 Course Vital Signs Vital signs: Vital Signs Temperature 98.2 F 02/27/24 13:47 Pulse Rate 69 02/27/24 13:47 Respiratory Rate 18 02/27/24 13:47 Blood Pressure 164/69 H 02/27/24 13:47 Pulse Oximetry 95 02/27/24 13:47 Oxygen Delivery Method Room Air 02/27/24 13:47 Temperature 98.2 F 02/27/24 13:47 Pulse Rate 69 02/27/24 13:47 Respiratory Rate 18 02/27/24 13:47 Blood Pressure 164/69 H 02/27/24 13:47 Pulse Oximetry 98 02/27/24 14:11 Oxygen Delivery Method Room Air 02/27/24 14:11 MDM - Neuro Symptoms/Deficit MDM Narrative Medical decision making narrative: The patient complete examination shows no acute pathology and her NIH score was 0 upon presentation at almost 2:00 PM after 12 hours of the last known well, It was noted that the patient tongue movement was different than baseline but she still speaking clearly and finding words with no difficulty CT head showed no acute pathology and her case was discussed with Dr Chan , the patient was started on aspirin 324 milligram Will keep her blood pressure controlled her initial blood pressure was 164/[address] head showed no acute significant pathology and her shunt showed no pathology as well. The patient CBC and chemistry showed chronic kidney disease urinalysis showed no UTI She had similar presentation in September at that time she was having urine infection and some low magnesium which is not the case right now The patient case was discussed with Dr. Clayton and the patient will be admitted for MRI of the brain and further evaluation Lab Data Labs: Lab Results 02/27/24 02/27/24 02/27/24 Range/Units 13:51 13:55 14:04 WBC 6.4 (4.0-11.0) 10^3/uL RBC 3.76 L (4.20-5.40) 10^6/uL Hgb 10.5 L (12.0-16.0) g/dL Hct 34.1 L (36.0-48.0) % MCV 90.7 (81.0-99.0) fL MCH 27.9 (26.7-34.0) pg MCHC 30.8 (29.9-35.2) g/dL RDW 14.9 (11.0-15.0) % Plt Count 261 (150-450) 10^3/uL MPV 10.6 (9.5-13.5) fL Neut % (Auto) 56.9 (43.0-75.0) % Lymph % (Auto) 27.3 (20.5-60.0) % [place] % (Auto) 11.1 (1.7-12.0) % Eos % (Auto) 3.6 (0.9-7.0) % Baso % (Auto) 0.8 (0.2-2.0) % Neut # (Auto) 3.6 (1.4-6.5) 10^3/uL Lymph # (Auto) 1.8 (1.2-3.8) 10^3/uL [place] # (Auto) 0.7 (0.3-0.8) 10^3/uL Eos # (Auto) 0.2 (0.0-0.7) 10^3/uL Baso # (Auto) 0.1 (0.0-0.1) 10^3/uL Abs Immat Gran (auto) 0.02 (0.00-0.03) 10^3/uL Imm/Tot Granulo (auto) 0.3 (0.0-0.5) % PT 10.2 (9.0-11.6) sec INR 0.96 APTT 26.8 (22.3-36.2) sec Sodium 140 (136-145) mmol/L Potassium 4.7 (3.5-5.1) mmol/L Chloride 105 (98-107) mmol/L Carbon Dioxide 27.9 (21.0-32.0) mmol/L Anion Gap 11.8 BUN 25.0 H (7.0-18.0) mg/dL Creatinine 1.33 H (0.55-1.02) mg/dL Est GFR ( Amer) 47 L (>=60) Est GFR (Non-Af Amer) 39 L (>=60) BUN/Creatinine Ratio 18.8 Glucose 201 H (74-106) mg/dL Calcium 9.5 (8.5-10.1) mg/dL Magnesium 1.9 (1.8-2.4) mg/dL Total Bilirubin 0.4 (0.2-1.0) mg/dL AST 25 (15-37) U/L ALT 14 (14-59) U/L Alkaline Phosphatase 97 (46-116) U/L Troponin I High Sens 10.5 (4.0-51.3) pg/mL Total Protein 7.9 (6.4-8.2) g/dL Albumin 3.4 (3.4-5.0) g/dL Globulin 4.5 g/dL Albumin/Globulin Ratio 0.8 Urine Color Yellow (YELLOW) Urine Clarity Clear (CLEAR) Urine pH 6.0 (5.0-9.0) Ur Specific [place] 1.025 (1.005-1.025) Urine Protein Negative (NEG/TRACE) mg/dL Urine Glucose (UA) >=1000 A (NEGATIVE) mg/dL Urine Ketones Negative (NEGATIVE) mg/dL Urine Occult Blood Trace-i (NEGATIVE) Urine Nitrite Negative (NEGATIVE) Urine Bilirubin Negative (NEGATIVE) Urine Urobilinogen 0.2 (0.2-1.0) EU/dL Ur Leukocyte Esterase Negative (NEGATIVE) Urine RBC 0-2 (0-2) #/HPF Urine WBC None seen (NONE SEEN) #/HPF Ur Squamous Epith Cells None seen (NONE/RARE) #/LPF Urine Crystals None seen (None Seen) #/HPF Urine Bacteria None seen (NONE SEEN) #/HPF Urine Casts None seen (NONE SEEN) #/LPF Urine Mucus None seen (NONE SEEN) POC Glucose 201 H (74-106) mg/dL Discharge Plan Discharge Chief Complaint: Neuro Symptoms/Deficit Clinical Impression: Speech abnormality Patient Disposition: Admitted As Inpatient Time of Disposition Decision: 14:49
[2024-02-27] MEDS: ASPIRIN 81 MG TAB.CHEW 324 MG PO (14:45)
--- NOTE | 2024-02-27 15:02 | CA_ITS ---
Patient Name: TERESA GOODWIN MR#: [id number] : 1945 Exam Date: 02/28/2024 Ordering Doctor: Shaikh Herve Clayton . ECHOCARDIOGRAM REPORT PROCEDURE: CA ECHO DOPPLER COMPLETE INDICATIONS: CVA symptom, Aortic valve replacement-bioprosthetic, hypertension, diabetes COMPARISON: None. DESCRIPTION: COMPLETE ECHOCARDIOGRAM Real-time transthoracic echocardiography with 2D, M-mode, spectral and color flow Doppler performed. QUALITY: Technical quality was adequate. 65 , 200#, BSA 1.98 m2, BP 161/70 LEFT VENTRICLE: Normal chamber size. Thickened septal wall. LV EF: Ventricular global left ventricular systolic function is normal; visually estimated ejection fraction is 55 to 60%. No obvious wall motion abnormalities. DIASTOLIC: Grade II diastolic dysfunction. ATRIAL SEPTUM: Inadequately seen. LEFT ATRIUM: Mild dilatation. RIGHT ATRIUM: Normal chamber size. RIGHT VENTRICLE: Normal chamber size. Normal right ventricular systolic function. TRICUSPID VALVE: Normal mobility and thickness. Mild regurgitation. Doppler studies reveal moderately (45-60) elevated right sided pressures. RVSP 47 mmHg MITRAL VALVE: Normal mobility and thickness. No evidence of mitral valve stenosis. Mild mitral annular calcification. Trivial mitral regurgitation. AORTIC VALVE: Bio-Prosthetic valve appears well seated in the aortic position with normal Doppler flow. No aortic regurgitation. AORTIC ROOT: Normal diameter and appearance. Ascending aorta is normal in size. PULMONIC VALVE: Not well visualized. No stenosis. Trivial regurgitation. PERICARDIUM: Anterior free space; trivial effusion versus fat pad. IVC: IVC is normal in size, does not fully collapse. CONCLUSION: 1. Global left ventricular systolic function is normal; visually estimated ejection fraction is 55 to 60% 2. Normal right ventricular size and systolic function 3. Grade 2 diastolic dysfunction 4. The left atrium is mildly dilated 5. Mild tricuspid regurgitation 6. Moderately elevated right ventricular systolic pressure; RVSP 47 mmHg 7. A bioprosthetic aortic valve is seen with normal Doppler flows; no aortic regurgitation 8. Anterior free space; trivial effusion versus fat pad Adult Echocardiography Procedure Report Left Ventricle LVEDD (3.7 - 5.6 cm): 3.99 cm LVESD (2.2 - 4.0 cm): 3.25 cm LVIVS thickness (0.6 - 1.2 cm): 1.31 cm LVPW thickness (0.5 - 1.0 cm): 0.81 cm e': 0.08 m/s E - e': 8.74 LVOT Max Gradient: 6.90 mm[Hg] LVOT Area (cm2): 1.31 m/s Peak Velocity (LVOT): 1.31 m/s Mean Velocity (LVOT): 0.87 m/s LVOT Diameter 1.51 cm Left Atrium LA Volume Index (2D A2C): 44.57 ml/m2 Left Atrium Systolic Dimension: 3.33 cm Mitral Valve MV E to A Ratio: 0.62 Mitral Valve A-Wave Peak Velocity: 1.15 m/s Mitral Valve E-Wave Peak Velocity: 0.71 m/s Right Ventricle Aorta AO Root Diam: 2.87 cm Ascending Ao Diam: 1.92 cm Aortic Valve AoV Area (Peak Hever): 1.41 cm2, 1.41 cm2 AoV Area (VTI): 1.41 cm2, 1.41 cm2 Peak Velocity(Antegrade Flow): 1.67 m/s Peak Gradient(Antegrade Flow): 11.16 mm[Hg] Mean Velocity(Antegrade Flow): 1.02 m/s Mean Gradient(Antegrade Flow): 5.07 mm[Hg] Velocity Time Integral: 34.45 cm Tricuspid Valve Peak Velocity (Regurgitant Flow): 3.14 m/s Pulmonic Valve Mean Gradient: 2.03 mm[Hg], 2.66 mm[Hg] Mean Velocity: 0.65 m/s, 0.76 m/s Peak Velocity: 1.07 m/s Peak Gradient: 4.61 mm[Hg], 4.61 mm[Hg] Right Atrium Right Atrium Systolic Pressure: 34.05 ml, 34.05 ml Dictated by: Adriana Wong M.D. on 02/28/2024 at 12:15 Approved by: Adriana Wong M.D. on 02/28/2024 at 12:27
[2024-02-27 15:23] LABS: Troponin I High Sensitivity 9.8 pg/mL (4.0-51.3)
--- OUTSIDE RECORDS SUMMARY | 2024-02-27 15:43 | XMS_ITS | CCD ---
Author Organization [facility] Care Team Providers Care Bariatric Physician Name Role Phone Caden Sanchez Primary Care [...] Caden Sanchez Primary Care Provider Unavaildeshawn Ley MANAGER FINE - BARTOLO, Pam De La Rosa Primary Care Prov [...] PAM LEY Primary Care Unavailable PAM LEY Referring Unavailable PAM LEY Primary Care Unavailable RAMBO MUÑOZ Referring Unavailable PAM LEY Primary Care Unavailable RAMBO MUÑOZ Attending Unavailable PAM LEY Referring Unavailable PAM LEY Primary Care Unavailable LESLEYNIKKISIMEON GONZALEZ Referring Unavailable PAM LEY Primary Care Unavailable Allergies Allergy Classification Reported Allergen(s) Allergy Type Date of Onset Reaction(s) Facility (1 source) 69542,00 Drug allergy (disorder) 01-23-2020 [facility] Repository Medications Current Medications Medication Drug Class(es) [...] nephropathy, without long-term current use of insulin ([facility]) Monitor blood sugars four times daily and [...] the morning. 0 09/29/2022 Active DEXCOM G6 CHUCKER misc (5 sources) Start: 05-06-2023 DEXCOM G6 CHUCKER misc 1 Device by drain unit route See Admin Instructions. 0 05/06/2023 Active dextromethorphan hydrobromide 1.5 mg/ml / pyrilamine maleate 1.5 mg/ml oral solution (3 sources) Uncompetitive K-cusxli-C-asparta te Receptor Antagonist, Sigma-1 Agonist Start: 12-15-2023 [...] 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 mellitus ([facility]) Take 1 capsule (300 mg total) by [...] nephropathy, without long-term current use of insulin ([facility]) INJECT 30 UNITS UNDER THE SKIN NIGHTLY [...] hyperlipidemia associated with type 2 diabetes mellitus ([facility]) Inject 2 Units under the skin 4 [...] right female breast, unspecified estrogen receptor status ([facility]) TAKE 1 TABLET BY MOUTH EVERY DAY [...] 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 Recovery(Cath) take 2 tablets by [facility] every six hours as needed for pain [...] injecti on 4 mg polyethylene glycol 3350 00974 mg powder for oral solution (1 source) [...] coronary artery; Translations: [Atherosclerotic heart disease of [place] coronary artery without angina pectoris] Onset: 1 [...] 8 10-26-2018 Chronic Other aftercare (2 sources) nursing home (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; Translations: [LONGTERM CURRENT USE OF INSULIN] Onset: 1 Episodic Other aftercare (1 source) Other buttermaker (current) drug therapy; Translations: [OTH LONGTERM CURRENT 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] Onset: 1 Episodic Other [...] Acevedo MD on 02/20/2024 6:48 PM Normal [facility] POCT urinalysis dipstick onl yon 02-09-2024 Appearance (U) cloudy [facility] External Poct Urine Bilirubin Negative [facility] External Poct Urine Blood Trace [facility] External Poct Urine Color yellow [facility] External Poct Urine Glucose Negative [facility] External Poct Urine Ketones Negative [facility] External Poct Urine Leukocyte Esterase 2+ [facility] External Poct Urine Nitrite Positive [facility] External Poct Urine Ph 6.5 [facility] External Poct Urine Protein Trace [facility] External Poct Urine Specific [place] 1.020 [facility] External Poct Urine Urobilinogen 0.2 [facility] URINE CULTUREon 02-09-2024 Bacteria identified Cx Nom [...] F TRIMETH/SULFAMETHOXAZOL E S <=12/03 F Susceptible [facility] Comment on above: Performed By: #### 6 30-4 #### [facility] ([id number]) [address], [address] [place] [address] 36on 02-07-2024 36 LVM for pt of upcomi ng CT/VPSS and follow up with Vale Bowser CNP. Reminder letter sent to pt's home. Normal [facility] ALBUMINon 01-10-2024 Albumin [Mass/Vol] 4.0 g/dL Normal 3.2-5.3 [facility] Comment on above: Performed By: #### C WILSON ALLEN, 1751-7, 37735-4, 2777-1, 2731-8, 34486-7 #### [facility] ([id number]) [address], [address] [place] [address] BASIC METABOLIC PANLon 01-10 Anion gap [Moles/Vol] 8 mmol/L Normal 5-15 [facility] Comment on above: Performed By: #### C WILSON ALLEN, 1751-7, 75553-8, 2777-1, 2731-8, 85239-6 #### [facility] ([id number]) [address], [address] [place] [address] Calcium [Mass/Vol] 9.1 mg/dL Normal 8.5-10.5 [facility] Comment on above: Performed By: #### C BC, BMP, 175-7, 63261-7, 2777-1, 2731-8, 09142-4 #### [facility] ([id number]) [address], [address] [place] [address] Chloride [Moles/Vol] 101 mmol/L Normal 98-109 [facility] Comment on above: Performed By: #### C BC, BMP, 175-7, 07726-7, 2777-1, 2731-8, 49471-6 #### [facility] ([id number]) [address] [facility] [address] [place] [address] CO2 [Moles/Vol] 29 mmol/L Normal 22-32 [facility] Comment on above: Performed By: #### C BC, BMP, 1750-7, 35925-1, 2777-1, 2731-8, 03201-9 #### [facility] ([id number]) [address], [address] [place] [address] Creatinine [Mass/Vol] 1.46 mg/dL High 0.40-1.00 [facility] Comment on above: Result Comment: METH OD TRACEABLE TO IDMS STANDARD Performed By: #### C BC, BMP, 1750-7, 99585-3, 2777-1, 2731-8, 06156-0 #### [facility] ([id number]) [address], [address] [place] [address] GFR/1.73 sq M.predicted among non-blacks MDRD (S/P/Bld) [Vol rate/Area] 37 mL/min/{1.73_m2} Low >59 [facility] Comment on above: Result Comment: Reported eGFR is based on the CKD-EPI 2020 equation that does not use a race coefficient. Performed By: #### C BC, BMP, 175-7, 61277-5, 2777-1, 2731-8, 59467-8 #### [facility] ([id number]) [address], [address] [place] [address] Glucose [Mass/Vol] 300 mg/dL High 65-99 [facility] Comment on above: Performed By: #### C BC, BMP, 175-7, 35845-0, 2777-1, 2731-8, 06342-3 #### [facility] ([id number]) [address], [address] [place] [address] Potassium [Moles/Vol] 4.4 mmol/L Normal 3.5-5.0 [facility] Comment on above: Performed By: #### C BC, BMP, 1750-7, 06746-4, 2777-1, 2731-8, 54180-6 #### [facility] ([id number]) [address], [address] [place] [address] Sodium [Moles/Vol] 138 mmol/L Normal 134-146 [facility] Comment on above: Performed By: #### C BC, BMP, 1750-7, 43900-6, 2777-1, 2731-8, 78184-5 #### [facility] ([id number]) [address], [address] [place] [address] Urea nitrogen [Mass/Vol] 26 mg/dL Normal 5-27 [facility] Comment on above: Performed By: #### Renita BC, BMP, 1750-7, 35737-9, 2777-1, 2731-8, 24870-8 #### [facility] ([id number]) [address], [address] [place] [address] COMPLETE BLOOD COUNTon 01-10 Erythrocyte distribution width (RBC) [Ratio] 15.2 % High 11.5-15.0 [facility] Comment on above: Performed By: #### Renita BC, BMP, 1750-7, 47829-4, 2777-1, 2731-8, 45229-2 #### [facility] ([id number]) [address], [address] [place] [address] Hematocrit (Bld) [Volume fraction] 31.6 % Low 35-47 [facility] Comment on above: Performed By: #### C BC, BMP, 1750-7, 54981-7, 2777-1, 273-8, 23778-2 #### [facility] ([id number]) [address], [address] [place] [address] Hemoglobin (Bld) [Mass/Vol] 10.3 g/dL Low 11.7-15.5 [facility] Comment on above: Performed By: #### Renita BC, BMP, 1750-, 74658-7, 2776-1, 2730-8, 93069-3 #### [facility] ([id number]) [address], [address] [place] [address] MCH (RBC) [Entitic mass] 27.7 pg Normal 27-34 [facility] Comment on above: Performed By: #### Renita BC, BMP, 1751-05, 93345-7, 2776-1, 2730-8, 09543-0 #### [facility] ([id number]) [address], [address] [place] [address] MCHC (RBC) [Mass/Vol] 32.5 g/dL Normal 32-36 [facility] Comment on above: Performed By: #### Renita BC, BMP, 1750-, 82840-1, 2776-1, 273-8, 59977-2 #### [facility] ([id number]) [address], [address] [place] [address] MCV (RBC) [Entitic vol] 85 fL Normal 80-100 [facility] Comment on above: Performed By: #### Renita BC, BMP, 1750-, 25548-0, 7-1, 273-8, 36927-7 #### [facility] ([id number]) [address], [address] [place] [address] Platelet mean volume (Bld) [Entitic vol] 8.5 fL Normal 7-12 [facility] Comment on above: Performed By: #### Renita BC, BMP, 175-7, 45562-1, 2777-1, 2731-8, 95796-4 #### [facility] ([id number]) [address], [address] [place] [address] Platelets (Bld) [#/Vol] 231 10*3/uL Normal 150-450 [facility] Comment on above: Performed By: #### Renita BC, BMP, 1750-7, 73507-1, 2777-1, 2731-8, 58616-2 #### [facility] ([id number]) [address], [address] [place] [address] RBC COUNT 3.70 X10E12/L Low 3.80-5.20 [facility] Comment on above: Performed By: #### Renita ALLEN, BMP, 1750-7, 16477-8, 2777-1, 2731-8, 10825-3 #### [facility] ([id number]) [address], [address] [place] [address] WBC (Bld) [#/Vol] 4.8 10*3/uL Normal 4.0-11.0 [facility] Comment on above: Performed By: #### Renita BC, BMP, 1750-7, 37035-3, 2777-1, 2731-8, 92906-2 #### [facility] ([id number]) [address], [address] [place] [address] HGB A1C (GLYCO-HGB)on 2023 Glucose [Mass/Vol] 203 mg/dL Normal [facility] Comment on above: Performed By: #### Renita BC, BMP, 1750-7, 31431-2, 2777-1, 273-8, 58403-6 #### [facility] ([id number]) [address], [address] [place] [address] HbA1c (Bld) [Mass fraction] 8.7 % High 4.4-5.6 [facility] Comment on above: Result Comment: NOTE ADA Guidelines Result HgbA1c Normal : less than 5.7 % Prediabetes : 5.7 % to 6.4 % Diabetes : > 6.4 % Use with caution in patients with abnormal hemoglobin variants as the half-life of red blood cells and in vivo glycation rates are affected. Performed By: #### WILSON MAI, 1751-05, , 2776-, 2730-8, 60598-3 #### [facility] ([id number]) [address], [address] [place] [address] MAGNESIUMon 01-10-2024 Magnesium [Mass/Vol] 1.9 mg/dL Normal 1.8-2.6 [facility] Comment on above: Performed By: #### WILSON MAI, 1751-05, , 2776-11, 8, 21026-9 #### [facility] ([id number]) [address], [address] [place] [address] PHOSPHORUSon 01-10-2024 Phosphate [Mass/Vol] 3.8 mg/dL Normal 2.4-4.9 [facility] Comment on above: Performed By: #### WILSON MAI, 1751-05, , 2776-11, 273-8, 32570-8 #### [facility] ([id number]) [address], [address] [place] [address] Parathyrin.intact [Mass/Vol] on 01-10-2024 PTH INTACT 71 pg/mL Normal 12-88 [facility] Comment on above: Performed By: #### C BC, BMP, 1751-7, 75048-4, 2777-1, 2731-8, 49587-4 #### [facility] ([id number]) [address] [place] [address], [address] [place] [address] Vitamin D+Metabolites [Mass/ Vol]on 01-10-2024 VITAMIN D 25 HYD TOT 38.9 ng/mL Normal 30-100 [facility] Comment on above: Result Comment: Vitamin D status 25 [place] Vitamin D Deficiency <20 ng/mL Insufficiency 20-29 ng/mL Sufficiency 30-100 ng/mL Toxicity >100 ng/mL NOTE: A pediatric reference range has not been established by the house wirer of this kit. The [place] [employer] recommends a Vitamin D level of = or >20ng/mL in infants and children. Performed By: #### C BC, BMP, 1751-7, 66306-2, 2777-1, 2731-8, 70922-3 #### [facility] ([id number]) [address] [place] [address], [address] [place] [address] Follow-Upon 03-23-2023 Follow-Up [id number] Jb Goodwin Y 1945 F Date Provider Department Center 03/23/2023 VALE TAMAYO [facility] SURG Second Fl Family History Problem Relation Age of Onset Diabetes Mother Hypertension Father Coronary artery disease Father Family Status - Relation Status Age at Mother Father Level of Service:81657 CT OFFICE/OUTPATIENT ESTABLISHED LOW MDM 20-29 MIN Reason for Visit and Comments: Follow-up [700646] - shunt check s/p mri; Patient has been off balance. Normal [facility] CT CARDIAC W [facility] MORP CARD ONLYon 01-18-2023 CT CARDIAC W [facility] MOR[facility] CARD ONLY EXAMINATION: CT [...] valve measurements were analyzed and provided by [facility] [employer] and are reported separately to the cardiology department. 3. Severe triple-vessel coronary artery calcifications. 4. Small sliding hiatal hernia. Interpreted by: Brennan Parra MD Signed by: Brennan Parra MD 01/18/23 Final result Normal [facility] CTA CHEST ABDOMEN PELVIS W [facility] 01-15-2023 CTA CHEST ABDOMEN PELVIS W CONTRAST [...] with a couple of ill-defined sclerotic foci. RADAR SYSTEMS ENGINEER shunt tubing in the right neck and [...] adenopathy. Very small fat containing umbilical hernia. RADAR SYSTEMS ENGINEER shunt tubing enters the abdomen in the [...] pelvis which may be related to the RADAR SYSTEMS ENGINEER shunt catheter. There is a cystic left [...] for planned (more content not included)... Normal [facility] No acute abnormality identified on CTA [...] recommended. 5 mm subpleural right lung nodule. RADAR SYSTEMS ENGINEER shunt noted. Small hiatal hernia. The findings [...] with a couple of ill-defined sclerotic foci. RADAR SYSTEMS ENGINEER shunt tubing in the right neck and [...] adenopathy. Very small fat containing umbilical hernia. RADAR SYSTEMS ENGINEER shunt tubing enters the abdomen in the [...] pelvis which may be related to the RADAR SYSTEMS ENGINEER shunt catheter. There is a cystic left [...] in the left flank and gluteal regions. [facility] Tato Whaley MD - 01/15/2023 EXAMINATION: [...] with a couple of ill-defined sclerotic foci. RADAR SYSTEMS ENGINEER shunt tubing in the right neck and [...] adenopathy. Very small fat containing umbilical hernia. RADAR SYSTEMS ENGINEER shunt tubing enters the abdomen in the [...] pelvis which may be related to the RADAR SYSTEMS ENGINEER shunt catheter. There is a cystic left [...] and gluteal regions. (more content not included)... [facility] [employer] Work Phone: CTA CHEST ABDOMEN PELVIS W C ONTRASTOrdered By: Tato Syed on 01-15-2023 [facility] Work Phone: PULMONARY FUNCTIONon 023 [address] [id number] PULMONARY FUNCTION PATIENT NAME: CUCA GOODWIN : 1945 MED REC NO: [id number] ROOM: ACCOUNT NO: [id number] ADMIT DATE: 01/13/2023 PROVIDER: Whit Maloney DATE [...] correlation is recommended. WHIT MALONEY [id number] Doc#: [id number] CC: Normal [facility] CTA CHEST ABDOMEN PELVIS W C ONTRASTon 01-13-2023 Radiology Study observation (narrative) [facility] Work Phone: POC Glucose Fingerstickon Glucose [Mass/Vol] 104 mg/dL 65 - 105 mg/dL [facility] [employer] [facility] MASS-ACTIVE [employer] Basic Metabolic Panelon 11-16 Anion gap [Moles/Vol] 11 mmol/L 9 - 17 mmol/L [facility] [employer] Calcium [Mass/Vol] 9.0 mg/dL 8.6 - 10. 4 mg/dL [facility] Chloride [Moles/Vol] 105 mmol/L 98 - 107 mmol/L [facility] CO2 [Moles/Vol] 20 mmol/L 20 - 31 mmol/L [facility] Creatinine [Mass/Vol] 1.04 mg/dL High 0.50 - 0.90 mg/dL [facility] GFR/1.73 sq M.predicted MDRD (S/P/Bld) [Vol rate/Area] 56 mL/min/{1.73_m2} Low - PINF [facility] Comment on above: These results are not [...] 131 mg/dL High 70 - 99 mg/dL [facility] Interpretation and review of laboratory results Abnormal [facility] Potassium [Moles/Vol] 4.3 mmol/L 3.7 - 5.3 mmol/L [facility] Sodium [Moles/Vol] 136 mmol/L 135 - 144 mmol/L [facility] Urea nitrogen (BldV) [Mass/Vol] 17 mg/dL 8 - 23 mg/dL [facility] Basic Metabolic Profon 12-10 Anion gap [Moles/Vol] 11 mmol/L Normal 9-17 [facility] Comment on above: Performed By: #### H H, BMPX #### [facility] [address] [place] [address] Wellness Manager: Luis Solis MD Calcium [Mass/Vol] 9.0 mg/dL Normal 8.6-10.4 [facility] Comment on above: Performed By: #### H H, BMPX #### [facility] [address] [place], [place] [address] Wellness Manager: Luis Solis MD Chloride [Moles/Vol] 105 mmol/L Normal 98-107 [facility] Comment on above: Performed By: #### H H, BMPX #### [facility] [address] [place] [address] Wellness Manager: Luis Solis MD CO2 [Moles/Vol] 20 mmol/L Normal 20-31 [facility] Comment on above: Performed By: #### H H, BMPX #### [facility] [address] [place] [address] Wellness Manager: Luis Solis MD Creatinine [Mass/Vol] 1.04 mg/dL High 0.50-0.90 [facility] Comment on above: Performed By: #### H H, BMPX #### [address] [address] Wellness Manager: Luis Solis MD GFR/1.73 sq M.predicted among non-blacks MDRD (S/P/Bld) [Vol rate/Area] 56 mL/min/{1.73_m2} Low >60 [facility] Comment on above: Result Comment: These [...] Performed By: #### H H, BMPX #### [facility] [address] [place] [address] Wellness Manager: Luis Solis MD Glucose [Mass/Vol] 131 mg/dL High 70-99 [facility] Comment on above: Performed By: #### H H, BMPX #### [facility] [address] [place] [address] Wellness Manager: Luis Solis MD Potassium [Moles/Vol] 4.3 mmol/L Normal 3.7-5.3 [facility] Comment on above: Performed By: #### H H, BMPX #### [facility] [address] [place] [address] Wellness Manager: Luis Solis MD Sodium [Moles/Vol] 136 mmol/L Normal 135-144 [facility] Comment on above: Performed By: #### H H, BMPX #### [facility] [address] [place] [address] Wellness Manager: Luis Solis MD Urea nitrogen [Mass/Vol] 17 mg/dL Normal 8-23 [facility] Comment on above: Performed By: #### H H, BMPX #### [facility] [address] [place] [address] Wellness Manager: Luis Solis MD Hemoglobin and Hematocriton 8 Hematocrit (Bld) [Volume fraction] 25.5 % Low 36.3 - 47.1 % [facility] Hemoglobin (Bld) [Mass/Vol] 7.9 g/dL Low 11.9 - 15.1 g/dL [facility] Interpretation and review of laboratory results Abnormal [facility] Hgb/Hcton 6 Hematocrit (Bld) [Volume fraction] 25.5 % Low 36.3-47.1 [facility] Comment on above: Performed By: #### H H, BMPX #### [facility] [address] [place] [address] Wellness Manager: Luis Solis MD Hemoglobin (Bld) [Mass/Vol] 7.9 g/dL Low 11.9-15.1 [facility] Comment on above: Performed By: #### H H, BMPX #### [facility] [address] [place] [address] Wellness Manager: Luis Solis MD Laboratory - Blood bankon Blood product type Nom (BPU) Leukocyte Reduced Red Cell [facility] No Panel Informationon 12-10 Blood Bank ISBT Product Blood Type 9500 [facility] Blood Bank Unit Type and Rh Negative [facility] Crossmatch Result COMPATIBLE [facility] Dispense Status TRANSFUSED [facility] Transfusion Status OK TO TRANSFUSE B ON [facility] Unit Divison 0 [facility] POC Glucose Fingerstickon Glucose [Mass/Vol] 105 mg/dL 65 - 105 mg/dL [facility] Glucose [Mass/Vol] 119 mg/dL High 65 - 105 mg/dL [facility] Interpretation and review of laboratory results Abnormal [facility] Glucose [Mass/Vol] 159 mg/dL High 65 - 105 mg/dL [facility] Interpretation and review of laboratory results Abnormal [facility] Glucose [Mass/Vol] 70 mg/dL 65 - 105 mg/dL [facility] Glucose [Mass/Vol] 41 mg/dL Low 65 - 105 mg/dL [facility] Comment on above: Critical Noted Interpretation and review of laboratory results Abnormal [facility] TYPE AND SCREENon 12-10-2022 ABO/Rh Negative [facility] Arm Band Number [id number] [facility] Blood Bank Blood Product Expiration Date [facility] Blood Bank Blood Product Expiration Date [id number] [facility] Blood Bank Blood Product Expiration Date [id number] [facility] Blood product unit ID (Dose) [#] [id number] [facility] Blood product unit ID (Dose) [#] [id number] [facility] Blood product unit ID (Dose) [#] [id number] [facility] Expiration Date 12/10/2022,2359 [facility] Product Code Blood Bank [id number] [facility] Product Code Blood Bank [id number] [facility] Product Code Blood Bank [id number] [facility] Unit Issue Date/Time [id number] [facility] Unit Issue Date/Time [id number] [facility] Unit Issue Date/Time [id number] [facility] Basic Metab w/rfx MGon 12-09 Anion gap [Moles/Vol] 10 mmol/L Normal 9-17 [facility] Comment on above: Performed By: #### H H, BMPX #### [facility] [address] [place] [address] Wellness Manager: Luis Soils MD Calcium [Mass/Vol] 8.6 mg/dL Normal 8.6-10.4 [facility] Comment on above: Performed By: #### H H, BMPX #### [facility] [address] [place] [address] Wellness Manager: Luis Solis MD Chloride [Moles/Vol] 106 mmol/L Normal 98-107 [facility] Comment on above: Performed By: #### H H, BMPX #### [facility] [address] [place] [address] Wellness Manager: Luis Solis MD CO2 [Moles/Vol] 21 mmol/L Normal 20-31 [facility] Comment on above: Performed By: #### H H, BMPX #### [facility] [address] [place] [address] Wellness Manager: Luis Solis MD Creatinine [Mass/Vol] 1.33 mg/dL High 0.50-0.90 [facility] Comment on above: Performed By: #### H H, BMPX #### [facility] [address] [place] [address] Wellness Manager: Luis Solis MD GFR/1.73 sq M.predicted among non-blacks MDRD (S/P/Bld) [Vol rate/Area] 41 mL/min/{1.73_m2} Low >60 [facility] Comment on above: Result Comment: Effective [...] Performed By: #### H H, BMPX #### [facility] [address] [place] [address] Wellness Manager: Luis Solis MD Glucose [Mass/Vol] 102 mg/dL High 70-99 [facility] Comment on above: Performed By: #### H H, BMPX #### [facility] [address] [place] [address] Wellness Manager: Luis Solis MD Potassium [Moles/Vol] 4.1 mmol/L Normal 3.7-5.3 [facility] Comment on above: Performed By: #### H H, BMPX #### [facility] [address] [place] [address] Wellness Manager: Luis Solis MD Sodium [Moles/Vol] 137 mmol/L Normal 135-144 [facility] Comment on above: Performed By: #### H H, BMPX #### [facility] [address] [place] [address] Wellness Manager: Luis Solis MD Urea nitrogen [Mass/Vol] 19 mg/dL Normal 8-23 [facility] Comment on above: Performed By: #### H H, BMPX #### [facility] [address] [place] [address] Wellness Manager: Luis Solis MD Basic Metabolic Panel w/ Ref pierre to MGon 12-09-2022 Anion gap [Moles/Vol] 10 mmol/L 9 - 17 mmol/L [facility] Calcium [Mass/Vol] 8.6 mg/dL 8.6 - 10. 4 mg/dL [facility] Chloride [Moles/Vol] 106 mmol/L 98 - 107 mmol/L [facility] CO2 [Moles/Vol] 21 mmol/L 20 - 31 mmol/L [facility] Creatinine [Mass/Vol] 1.33 mg/dL High 0.50 - 0.90 mg/dL [facility] GFR/1.73 sq M.predicted MDRD (S/P/Bld) [Vol rate/Area] 41 mL/min/{1.73_m2} Low - PINF [facility] Comment on above: Effective Aug 17, 2022 [...] 102 mg/dL High 70 - 99 mg/dL [facility] Interpretation and review of laboratory results Abnormal [facility] Potassium [Moles/Vol] 4.1 mmol/L 3.7 - 5.3 mmol/L [facility] Sodium [Moles/Vol] 137 mmol/L 135 - 144 mmol/L [facility] Urea nitrogen (BldV) [Mass/Vol] 19 mg/dL 8 - 23 mg/dL [facility] Hemoglobin and Hematocriton 12-09-2022 Hematocrit (Bld) [Volume fraction] 25.6 % Low 36.3 - 47.1 % [facility] Hemoglobin (Bld) [Mass/Vol] 8.0 g/dL Low 11.9 - 15.1 g/dL [facility] Interpretation and review of laboratory results Abnormal [facility] Hematocrit (Bld) [Volume fraction] 23.5 % Low 36.3 - 47.1 % [facility] Hemoglobin (Bld) [Mass/Vol] 7.1 g/dL Low 11.9 - 15.1 g/dL [facility] Interpretation and review of laboratory results Abnormal [facility] Hgb/Hcton 12-09-2022 Hematocrit (Bld) [Volume fraction] 25.6 % Low 36.3-47.1 [facility] Comment on above: Performed By: #### H H, BMPX #### [facility] [address] [place] [address] [phone] Wellness Manager: Luis Solis MD Hemoglobin (Bld) [Mass/Vol] 8.0 g/dL Low 11.9-15.1 [facility] Comment on above: Performed By: #### H H, BMPX #### [facility] [address] [place] [address] [phone] Wellness Manager: Luis Solis MD Hematocrit (Bld) [Volume fraction] 23.5 % Low 36.3-47.1 [facility] Comment on above: Performed By: #### H H, BMPX #### [facility] [address] [place] [address] [phone] Wellness Manager: Luis Solis MD Hemoglobin (Bld) [Mass/Vol] 7.1 g/dL Low 11.9-15.1 [facility] Comment on above: Performed By: #### H H, BMPX #### [facility] [address] [place] [address] [phone] Wellness Manager: Luis Solis MD POC Glucose Fingerstickon Glucose [Mass/Vol] 143 mg/dL High 65 - 105 mg/dL [facility] Interpretation and review of laboratory results Abnormal [facility] Glucose [Mass/Vol] 96 mg/dL 65 - 105 mg/dL [facility] Glucose [Mass/Vol] 114 mg/dL High 65 - 105 mg/dL [facility] Interpretation and review of laboratory results Abnormal [facility] Glucose [Mass/Vol] 111 mg/dL High 65 - 105 mg/dL [facility] Interpretation and review of laboratory results Abnormal [facility] Type + Screenon 12-09-2022 Type + Screen Sample Expiration 12/10/2022,2359 Arm Band Number [id number] ABO/Rh(D) O NEGATIVE Antibody Screen NEGATIVE Unit Number [id number] Blood Component Type Leukocyte Reduced Red Cell Unit Division 00 Status of Unit TRANSFUSED Transfusion Status OK TO TRANSFUSE Crossmatch Result COMPATIBLE Unit Number [id number] Blood Component Type Leukocyte Reduced Red Cell Unit Division 00 Status of Unit TRANSFUSED Transfusion Status OK TO TRANSFUSE Crossmatch Result COMPATIBLE Unit Number [id number] Blood Component Type Leukocyte Reduced Red Cell Unit Division 00 Status of Unit TRANSFUSED Transfusion Status OK TO TRANSFUSE Crossmatch Result COMPATIBLE Normal [facility] Comment on above: Performed By: #### R CHITO, BMPX #### [facility] [address] [place], [place] [phone] Wellness Manager: Luis Solis MD Basic Metab w/rfx MGon 12-08 Anion gap [Moles/Vol] 9 mmol/L Normal 9-17 [facility] Comment on above: Performed By: #### R CHITO, BMPX #### [facility] [address] [place] [address] [phone] Wellness Manager: Luis Solis MD Calcium [Mass/Vol] 8.6 mg/dL Normal 8.6-10.4 [facility] Comment on above: Performed By: #### R CHITO, BMPX #### [facility] [address] [place] [address] [phone] Wellness Manager: Luis Solis MD Chloride [Moles/Vol] 106 mmol/L Normal 98-107 [facility] Comment on above: Performed By: #### R ZAINABEC, BMPX #### [facility] [address] [place] [address] [phone] Wellness Manager: Luis Solis MD CO2 [Moles/Vol] 24 mmol/L Normal 20-31 [facility] Comment on above: Performed By: #### R CHITO, BMPX #### [facility] [address] [place] [address] Wellness Manager: Luis Solis MD Creatinine [Mass/Vol] 1.33 mg/dL High 0.50-0.90 [facility] Comment on above: Performed By: #### R CHITO BMPX #### [facility] [employer] [employer] [address] [place] [address] [phone] Wellness Manager: Luis Solis MD GFR/1.73 sq M.predicted among non-blacks MDRD (S/P/Bld) [Vol rate/Area] 41 mL/min/{1.73_m2} Low >60 [facility] Comment on above: Result Comment: Effective [...] Performed By: #### R CHITO BMPX #### [facility] [address] [place] [address] Wellness Manager: Luis Solis MD Glucose [Mass/Vol] 160 mg/dL High 70-99 [facility] Comment on above: Performed By: #### R CHITO BMPX #### [facility] [address] [place] [address] Wellness Manager: Luis Solis MD Potassium [Moles/Vol] 4.4 mmol/L Normal 3.7-5.3 [facility] Comment on above: Performed By: #### R CHITO, BMPX #### [facility] [address] [place], [place] [phone] Wellness Manager: Luis Solis MD Sodium [Moles/Vol] 139 mmol/L Normal 135-144 [facility] Comment on above: Performed By: #### R EJEC, BMPX #### [facility] [address] [place] [address] Wellness Manager: Luis Solis MD Urea nitrogen [Mass/Vol] 21 mg/dL Normal 8-23 [facility] Comment on above: Performed By: #### R EJEC, BMPX #### [facility] [address] [place] [address] Wellness Manager: Luis Solis MD Basic Metabolic Panelon 11-16 Anion gap [Moles/Vol] 7 mmol/L Low 9 - 17 mmol/L [facility] Calcium [Mass/Vol] 8.5 mg/dL Low 8.6 - 10. 4 mg/dL [facility] Chloride [Moles/Vol] 110 mmol/L High 98 - 107 mmol/L [facility] CO2 [Moles/Vol] 25 mmol/L 20 - 31 mmol/L [facility] Creatinine [Mass/Vol] 1.43 mg/dL High 0.50 - 0.90 mg/dL [facility] GFR/1.73 sq M.predicted MDRD (S/P/Bld) [Vol rate/Area] 38 mL/min/{1.73_m2} Low - PINF [facility] Comment on above: Effective Aug 17, 2022 [...] 124 mg/dL High 70 - 99 mg/dL [facility] Interpretation and review of laboratory results Abnormal [facility] Potassium [Moles/Vol] 4.7 mmol/L 3.7 - 5.3 mmol/L [facility] Sodium [Moles/Vol] 142 mmol/L 135 - 144 mmol/L [facility] Urea nitrogen (BldV) [Mass/Vol] 23 mg/dL 8 - 23 mg/dL [facility] Basic Metabolic Panel w/ Ref pierre to MGon 12-08-2022 Anion gap [Moles/Vol] 9 mmol/L 9 - 17 mmol/L [facility] Calcium [Mass/Vol] 8.6 mg/dL 8.6 - 10. 4 mg/dL [facility] Chloride [Moles/Vol] 106 mmol/L 98 - 107 mmol/L [facility] CO2 [Moles/Vol] 24 mmol/L 20 - 31 mmol/L [facility] Creatinine [Mass/Vol] 1.33 mg/dL High 0.50 - 0.90 mg/dL [facility] GFR/1.73 sq M.predicted MDRD (S/P/Bld) [Vol rate/Area] 41 mL/min/{1.73_m2} Low - PINF [facility] Comment on above: Effective Aug 17, 2022 [...] 160 mg/dL High 70 - 99 mg/dL [facility] Interpretation and review of laboratory results Abnormal [facility] Potassium [Moles/Vol] 4.4 mmol/L 3.7 - 5.3 mmol/L [facility] Sodium [Moles/Vol] 139 mmol/L 135 - 144 mmol/L [facility] Urea nitrogen (BldV) [Mass/Vol] 21 mg/dL 8 - 23 mg/dL [facility] Basic Metabolic Profon 12-08 Anion gap [Moles/Vol] 7 mmol/L Low 9-17 [facility] Comment on above: Performed By: #### B MP, CBC #### [facility] [address] [place] [address] 20228 Wellness Manager: Luis Solis MD Calcium [Mass/Vol] 8.5 mg/dL Low 8.6-10.4 [facility] Comment on above: Performed By: #### B MP, CBC #### [facility] [address] [place] [address] 74331 Wellness Manager: Luis Solis MD Chloride [Moles/Vol] 110 mmol/L High 98-107 [facility] Comment on above: Performed By: #### B MP, CBC #### [facility] [address] [place] [address] 35868 Wellness Manager: Luis Solis MD CO2 [Moles/Vol] 25 mmol/L Normal 20-31 [facility] Comment on above: Performed By: #### B MP, CBC #### [facility] [address] [place] [address] 68856 Wellness Manager: Luis Solis MD Creatinine [Mass/Vol] 1.43 mg/dL High 0.50-0.90 [facility] Comment on above: Performed By: #### B FAITH, CBC #### [facility] [address] [place] [address] [phone] Wellness Manager: Luis Solis MD GFR/1.73 sq M.predicted among non-blacks MDRD (S/P/Bld) [Vol rate/Area] 38 mL/min/{1.73_m2} Low >60 [facility] Comment on above: Result Comment: Effective [...] Performed By: #### B MP, CBC #### [facility] [employer] [address] [place] [address] 23649 Wellness Manager: Luis Solis MD Glucose [Mass/Vol] 124 mg/dL High 70-99 [facility] Comment on above: Performed By: #### B MP, CBC #### [facility] [employer] [address] [place] [address] 43650 Wellness Manager: Luis Solis MD Potassium [Moles/Vol] 4.7 mmol/L Normal 3.7-5.3 [facility] Comment on above: Performed By: #### B MP, CBC #### [facility] [employer] [address] [place] [address] 88197 Wellness Manager: Luis Solis MD Sodium [Moles/Vol] 142 mmol/L Normal 135-144 [facility] Comment on above: Performed By: #### B FAITH, CBC #### [facility] [employer] [address] [place] [address] 29410 Wellness Manager: Luis Solis MD Urea nitrogen [Mass/Vol] 23 mg/dL Normal 8-23 [facility] Comment on above: Performed By: #### B MP, CBC #### [facility] [address] [place] [address] 43524 Wellness Manager: Luis Solis MD CBCon 12-08-2022 Erythrocyte distribution width (RBC) [Ratio] 17.8 % High 11.8-14.4 [facility] Comment on above: Performed By: #### B MP, CBC #### [facility] [address] [place] [address] [phone] Wellness Manager: Luis Solis MD Hematocrit (Bld) [Volume fraction] 22.0 % Low 36.3-47.1 [facility] Comment on above: Performed By: #### B MP, CBC #### [facility] [address] [place] [address] 63450 Wellness Manager: Luis Solis MD Hemoglobin (Bld) [Mass/Vol] 6.6 g/dL Critically low 11.9-15.1 [facility] Comment on above: Performed By: #### B MP, CBC #### [address] [address] Wellness Manager: Luis Solis MD MCH (RBC) [Entitic mass] 27.5 pg Normal 25.2-33.5 [facility] Comment on above: Performed By: #### B MP, CBC #### [facility] [address] [place] [address] 18384 Wellness Manager: Luis Solis MD MCHC (RBC) [Mass/Vol] 30.0 g/dL Normal 28.4-34.8 [facility] Comment on above: Performed By: #### B MP, CBC #### [address] [address] Wellness Manager: Luis Solis MD MCV (RBC) [Entitic vol] 91.7 fL Normal 82.6-102.9 [facility] Comment on above: Performed By: #### B MP, CBC #### [address] [address] Wellness Manager: Luis Solis MD NRBC Automated 0.0 per 100 WBC Normal 0.0 [facility] Comment on above: Performed By: #### B MP, CBC #### [address] [address] Wellness Manager: Luis Solis MD Platelet mean volume (Bld) [Entitic vol] 10.3 fL Normal 8.1-13.5 [facility] Comment on above: Performed By: #### B MP, CBC #### [address] [place] [place], [place] [phone] Wellness Manager: Luis Solis MD Platelets (Bld) [#/Vol] 250 10*3/uL Normal 138-453 [facility] Comment on above: Performed By: #### B MP, CBC #### [facility] [address] [place], [place] [phone] Wellness Manager: Luis Solis MD RBC (Bld) [#/Vol] 2.40 10*6/uL Low 3.95-5.11 [facility] Comment on above: Performed By: #### B MP, CBC #### [facility] [employer] [address] [place] [address] [phone] Wellness Manager: Luis Solis MD WBC (Bld) [#/Vol] 9.2 10*3/uL Normal 3.5-11.3 [facility] Comment on above: Performed By: #### B MP, CBC #### [facility] [employer] [address] [place] [address] [phone] Wellness Manager: Luis Solis MD Hematocrit (Bld) [Volume fraction] 22.0 % Low 36.3 - 47.1 % [facility] Hemoglobin (Bld) [Mass/Vol] 6.6 g/dL Critically low 11.9 - 15.1 g/dL [facility] Interpretation and review of laboratory results Abnormal [facility] MCH (RBC) [Entitic mass] 27.5 pg 25.2 - 33.5 pg [facility] MCHC (RBC) [Mass/Vol] 30.0 g/dL 28.4 - 34.8 g/dL [facility] MCV (RBC) [Entitic vol] 91.7 fL 82.6 - 102.9 fL [facility] NRBC Automated 0.0 0.0 per 100 WBC [facility] Platelet distribution width (Bld) [Ratio] 17.8 % High 11.8 - 14.4 % [facility] Platelet mean volume (Bld) [Entitic vol] 10.3 fL 8.1 - 13.5 fL [facility] Platelets (Bld) [#/Vol] 250 10*3/uL [facility] RBC (Bld) [#/Vol] 2.40 10*6/uL Low 3.95 - 5.1 1 m/uL [facility] WBC (Bld) [#/Vol] 9.2 10*3/uL [facility] Hemoglobin and Hematocriton 12-08-2022 Hematocrit (Bld) [Volume fraction] 24.4 % Low 36.3 - 47.1 % [facility] Hemoglobin (Bld) [Mass/Vol] 7.4 g/dL Low 11.9 - 15.1 g/dL [facility] Interpretation and review of laboratory results Abnormal [facility] Hematocrit (Bld) [Volume fraction] 24.6 % Low 36.3 - 47.1 % [facility] Hemoglobin (Bld) [Mass/Vol] 7.7 g/dL Low 11.9 - 15.1 g/dL [facility] Interpretation and review of laboratory results Abnormal [facility] Hematocrit (Bld) [Volume fraction] 22.9 % Low 36.3 - 47.1 % [facility] Hemoglobin (Bld) [Mass/Vol] 7.6 g/dL Low 11.9 - 15.1 g/dL [facility] Interpretation and review of laboratory results Abnormal [facility] Hematocrit (Bld) [Volume fraction] 21.9 % Low 36.3 - 47.1 % [facility] Hemoglobin (Bld) [Mass/Vol] 6.5 g/dL Critically low 11.9 - 15.1 g/dL [facility] Interpretation and review of laboratory results Abnormal [facility] Hgb/Hcton 12-08-2022 Hematocrit (Bld) [Volume fraction] 24.4 % Low 36.3-47.1 [facility] Comment on above: Performed By: #### R EJEC, BMPX #### [facility] [address] [place] [address] [phone] Wellness Manager: Luis Solis MD Hemoglobin (Bld) [Mass/Vol] 7.4 g/dL Low 11.9-15.1 [facility] Comment on above: Performed By: #### R EJEC, BMPX #### [facility] [employer] [address] [place] [address] [phone] Wellness Manager: Luis Solis MD Hematocrit (Bld) [Volume fraction] 24.6 % Low 36.3-47.1 [facility] Comment on above: Performed By: #### R EJEC, BMPX #### [facility] [employer] [address] [place] [address] [phone] Wellness Manager: Luis Solis MD Hemoglobin (Bld) [Mass/Vol] 7.7 g/dL Low 11.9-15.1 [facility] Comment on above: Performed By: #### R EJEC, BMPX #### [facility] [employer] [address] [place] [address] [phone] Wellness Manager: Luis Solis MD Hematocrit (Bld) [Volume fraction] 22.9 % Low 36.3-47.1 [facility] Comment on above: Performed By: #### R EJEC, BMPX #### [facility] [address] [place] [address] 16790 Wellness Manager: Luis Solis MD Hemoglobin (Bld) [Mass/Vol] 7.6 g/dL Low 11.9-15.1 [facility] Comment on above: Performed By: #### R EJEC, BMPX #### [facility] [address] [place] [address] [phone] Wellness Manager: Luis Solis MD Hematocrit (Bld) [Volume fraction] 21.9 % Low 36.3-47.1 [facility] Comment on above: Performed By: #### H H #### [facility] [address] [place] [address] [phone] Wellness Manager: Luis Solis MD Hemoglobin (Bld) [Mass/Vol] 6.5 g/dL Critically low 11.9-15.1 [facility] Comment on above: Performed By: #### H H #### [facility] [address] [place] [address] [phone] Wellness Manager: Luis Solis MD Hematocrit (Bld) [Volume fraction] 23.7 % Low 36.3-47.1 [facility] Comment on above: Performed By: #### R CHITO, BMPX #### [facility] [address] [place] [address] 84763 Wellness Manager: Luis Solis MD Hemoglobin (Bld) [Mass/Vol] 7.6 g/dL Low 11.9-15.1 [facility] Comment on above: Performed By: #### R CHITO, BMPX #### [facility] [address] [place] [address] [phone] Wellness Manager: Luis Solis MD POC Glucose Fingerstickon Glucose [Mass/Vol] 129 mg/dL High 65 - 105 mg/dL [facility] Interpretation and review of laboratory results Abnormal [facility] Glucose [Mass/Vol] 138 mg/dL High 65 - 105 mg/dL [facility] Interpretation and review of laboratory results Abnormal [facility] Glucose [Mass/Vol] 164 mg/dL High 65 - 105 mg/dL [facility] Interpretation and review of laboratory results Abnormal [facility] SPECIMEN REJECTIONon 023 Ordered Test HH [facility] Reason for Rejection Unable to perform testing: Specimen clotted. [facility] Specimen source Nom (Unsp spec) .BLOOD [facility] Specimen Rejectionon 023 Reason for rejection Unable to perform testing: Specimen clotted. Normal [facility] Comment on above: Performed By: #### R EJEC, BMPX #### [facility] [address] [place], [place] [phone] Wellness Manager: Luis Solis MD Source of sample .BLOOD Normal [facility] Comment on above: Performed By: #### R EJEC, BMPX #### [facility] [address] [place], [place] [phone] Wellness Manager: Luis Solis MD Test ordered [facility] Comment on above: Performed By: #### R EJEC, BMPX #### [facility] [address] [place] [address] Wellness Manager: Luis Solis MD Activated clotting timeon Activated Clotting Time 262 High [facility] [employer] Interpretation and review of laboratory results Abnormal [facility] [employer] CHLORIDE (POC)on 12-07-2022 Chloride [Moles/Vol] 107 mmol/L 98 - 107 mmol/L [facility] Catheterization and angiogra phy procedure details panelon 12-07-[address] [facility] [employer] Work Phone: Creatinine W/GFR Point of Ca reon 12-07-2022 Creatinine [Mass/Vol] 1.35 mg/dL High 0.51 - 1.19 mg/dL [facility] [employer] eGFR, POC 41 mL/min/1.73m 2 [facility] Comment on above: Effective Aug 17, 2022 [...] 23.7 % Low 36.3 - 47.1 % [facility] [employer] Hemoglobin (Bld) [Mass/Vol] 7.6 g/dL Low 11.9 - 15.1 g/dL [facility] Interpretation and review of laboratory results Abnormal [facility] Hematocrit (Bld) [Volume fraction] 24.9 % Low 36.3 - 47.1 % [facility] Hemoglobin (Bld) [Mass/Vol] 7.2 g/dL Low 11.9 - 15.1 g/dL [facility] Interpretation and review of laboratory results Abnormal [facility] Hemoglobin and hematocrit, b loodon 12-07-2022 Hematocrit (Bld) [Volume fraction] 20 % Low 36 - 46 % [facility] Hemoglobin (Bld) [Mass/Vol] 6.9 g/dL Critically low 12.0 - 16.0 g/dL [facility] Interpretation and review of laboratory results Abnormal [facility] Hematocrit (Bld) [Volume fraction] 30 % Low 36 - 46 % [facility] Hemoglobin (Bld) [Mass/Vol] 10.1 g/dL Low 12.0 - 16.0 g/dL [facility] Hgb/Hcton 12-07-2022 Hematocrit (Bld) [Volume fraction] 24.9 % Low 36.3-47.1 [facility] Comment on above: Performed By: #### R ZAINABEC, BMPX #### [facility] [address] [place] [phone] Wellness Manager: Luis Solis MD Hemoglobin (Bld) [Mass/Vol] 7.2 g/dL Low 11.9-15.1 [facility] Comment on above: Performed By: #### R EJEC, BMPX #### [facility] [address] [place] [phone] Wellness Manager: Luis Solis MD No Panel Informationon 12-07 Interpretation and review of laboratory results Abnormal [facility] POC Glucose Fingerstickon Glucose [Mass/Vol] 197 mg/dL High 65 - 105 mg/dL [facility] Interpretation and review of laboratory results Abnormal [facility] Glucose [Mass/Vol] 101 mg/dL 65 - 105 mg/dL [facility] POCT Glucoseon 12-07-2022 Glucose [Mass/Vol] 83 mg/dL 74 - 100 mg/dL [facility] POCT urea (BUN)on 12-07-2022 Urea nitrogen [Mass/Vol] 25 mg/dL 8 - 26 mg/dL [facility] POTASSIUM (POC)on 12-07-2022 Potassium [Moles/Vol] 4.2 mmol/L 3.5 - 4.5 mmol/L [facility] SODIUM (POC)on 12-07-2022 Sodium [Moles/Vol] 142 mmol/L 138 - 146 mmol/L [facility] VL DUP LOWER EXTREMITY ARTER IES RIGHTon 12-07-2022 Darnell Monique MD - 12/07/2022 [facility] Vascular Lower Extremities Arterial Duplex Procedure Patient Name CHRISTA Date of Study 12/07/2022 [facility] Date of 1945 Gender Female Age 77 year(s) Race Room Number 0501 Height: 65 inch, 165.1 cm Corporate ID # [id number] Weight: 208 pounds, 94.3 kg Patient BSA: 2.01 m^2 BMI: 34.61 kg/m^2 MR # [id number] Jtac Whit Gan, T Interpreting Physician Darnell Monique [...] ! +---------++-----+----- +------+----+------++-- -+-----+------+----+--- ------ + [facility] [place] Phone: Radiology Study observation (narrative) [facility] [place] Phone: VL DUP LOWER EXTREMITY ARTER IES RIGHTOrdered By: Darnell Burk on 12-07-2022 [facility] Work Phone: CHLORIDE (POC)on 11-24-2022 Chloride [Moles/Vol] 105 mmol/L 98 - 107 mmol/L [facility] Creatinine W/GFR Point of Ca reon 11-24-2022 Creatinine [Mass/Vol] 1.5 mg/dL High 0.51 - 1.19 mg/dL [facility] eGFR, POC 36 mL/min/1.73m 2 [facility] Comment on above: Effective Aug 17, 2022 [...] 26 % Low 36 - 46 % [facility] Hemoglobin (Bld) [Mass/Vol] 8.7 g/dL Low 12.0 - 16.0 g/dL [facility] No Panel Informationon 11-24 Interpretation and review of laboratory results Abnormal [facility] POCT Glucoseon 11-24-2022 Glucose [Mass/Vol] 135 mg/dL High 74 - 100 mg/dL [facility] POCT urea (BUN)on 11-24-2022 POC BUN Result not available. 8 - 26 mg/dL B ON [facility] POTASSIUM (POC)on 11-24-2022 Potassium [Moles/Vol] 5.3 mmol/L High 3.5 - 4.5 mmol/L [facility] Platelet Counton 11-24-2022 Platelets (Bld) [#/Vol] 314 10*3/uL Normal 138-453 [facility] Comment on above: Performed By: #### P LT #### [facility] [address] [place] [address]23 Wellness Manager: Luis Solis MD Platelets (Bld) [#/Vol] 314 10*3/uL [facility] SODIUM (POC)on 11-24-2022 Sodium [Moles/Vol] 142 mmol/L 138 - 146 mmol/L [facility] Cult,Bloodon 10-03-2022 Cult,Blood Specimen Description .BLOOD Special Requests L AC 10ML Culture NO GROWTH 5 DAYS Report Status FINAL 10/03/2022 Normal [facility] Comment on above: Performed By: #### B C #### [facility] [address] [place] [phone] Wellness Manager: Luis Solis MD Cult,Blood Specimen Description .BLOOD Special Requests R AC 10ML Culture NO GROWTH 5 DAYS Report Status FINAL 10/03/2022 Normal [facility] Comment on above: Performed By: #### H H, BMPX #### [facility] [address] [place] [phone] Wellness Manager: Luis Solis MD Basic Metab w/rfx MGon 09-30 Anion gap [Moles/Vol] 9 mmol/L Normal 9-17 [facility] Comment on above: Performed By: #### H H, BMPX #### [facility] [address] [place] [phone] Wellness Manager: Luis Solis MD Calcium [Mass/Vol] 8.8 mg/dL Normal 8.6-10.4 [facility] Comment on above: Performed By: #### H H, BMPX #### [facility] [employer] [address] [place] [address] Wellness Manager: Luis Solis MD Chloride [Moles/Vol] 102 mmol/L Normal 98-107 [facility] Comment on above: Performed By: #### H H, BMPX #### [facility] [address] [place] [phone] Wellness Manager: Luis Solis MD CO2 [Moles/Vol] 28 mmol/L Normal 20-31 [facility] Comment on above: Performed By: #### H H, BMPX #### [facility] [address] [place] [address] 25471 Wellness Manager: Luis Solis MD Creatinine [Mass/Vol] 1.28 mg/dL High 0.50-0.90 [facility] Comment on above: Performed By: #### H H, BMPX #### [facility] [address] [place] [address] 58980 Wellness Manager: Luis Solis MD GFR/1.73 sq M.predicted among non-blacks MDRD (S/P/Bld) [Vol rate/Area] 43 mL/min/{1.73_m2} Low >60 [facility] Comment on above: Result Comment: Effective [...] Performed By: #### H H, BMPX #### [facility] [address] [place] [address] 17043 Wellness Manager: Luis Solis MD Glucose [Mass/Vol] 141 mg/dL High 70-99 [facility] Comment on above: Performed By: #### H H, BMPX #### [facility] [address] [place] [address] 35750 Wellness Manager: Luis Solis MD Potassium [Moles/Vol] 4.0 mmol/L Normal 3.7-5.3 [facility] Comment on above: Performed By: #### H H, BMPX #### [facility] [address] [place] [address], [place] [phone] Wellness Manager: Luis Solis MD Sodium [Moles/Vol] 139 mmol/L Normal 135-144 [facility] Comment on above: Performed By: #### H H, BMPX #### [address] [phone] Wellness Manager: Luis Solis MD Urea nitrogen [Mass/Vol] 18 mg/dL Normal 8-23 [facility] Comment on above: Performed By: #### H H, BMPX #### [address] [phone] Wellness Manager: Luis Solis MD Cult,Urineon 09-30-2022 Cult,Urine Specimen Description .URINE,STRAIGHT CATHETER Culture ESCHERICHIA COLI >523209 CFU/ML AEROCOCCUS URINAE 50 to 100,000 CFU/ML [...] Trimethoprim/Sulfa <=20 SUSCEPTIBLE Piperacillin/Tazobactam <=4 SUSCEPTIBLE Susceptible [facility] Comment on above: Performed By: #### H H, BMPX #### [address] [phone] Wellness Manager: Luis Solis MD APTTon 09-29-2022 aPTT Coag (Bld) [Time] 30.4 s Normal 20.5-30.5 [facility] Comment on above: Result Comment: IV Heparin Therapy Range: 48.6-77.8 Performed By: #### H Yo BMPX #### [facility] [address] [place] [address] [phone] Wellness Manager: Luis Solis MD Procalcitoninon 09-29-2022 Procalcitonin 0.23 ng/mL High <0.09 [facility] Comment on above: Result Comment: Suspected [...] entered into the Change in Procalcitonin Calculator ([email or web address]) to determine the patient's Mortality Risk Prognosis In healthy neonates, plasma Procalcitonin (PCT) concentrations increase gradually after , reaching peak values at about 24 hours of age then decrease to normal values below 0.5 ng/mL by 48-72 hours of age. Performed By: #### R CHITO BMPX #### [facility] [address] [place] [address] [phone] Wellness Manager: Luis Solis MD APTTon 09-28-2022 aPTT Coag (Bld) [Time] 110.7 s Critically high 20.5-30.5 [facility] Comment on above: Result Comment: IV Heparin Therapy Range: 48.6-77.8 Performed By: #### P TT #### [facility] [address] [place] [address] [phone] Wellness Manager: Luis Solis MD aPTT Coag (Bld) [Time] 24.1 s Normal 20.5-30.5 [facility] Comment on above: Result Comment: IV Heparin Therapy Range: 48.6-77.8 Performed By: #### H H, BMPX #### [facility] [address] [place] [address] 88045 Wellness Manager: Luis Solis MD aPTT Coag (Bld) [Time] 22.6 s Normal 20.5-30.5 [facility] Comment on above: Result Comment: IV Heparin Therapy Range: 48.6-77.8 Performed By: #### H H, BMPX #### [facility] [address] [place] [address] 58540 Wellness Manager: Luis Solis MD Basic Metab w/rfx MGon 09-28 Anion gap [Moles/Vol] 10 mmol/L Normal 9-17 [facility] Comment on above: Performed By: #### R CHITO, BMPX #### [facility] [address] [place] [address] 74703 Wellness Manager: Luis Solis MD Calcium [Mass/Vol] 7.6 mg/dL Low 8.6-10.4 [facility] Comment on above: Performed By: #### R CHITO, BMPX #### [facility] [address] [place] [address]103 Wellness Manager: Luis Solis MD Chloride [Moles/Vol] 107 mmol/L Normal 98-107 [facility] Comment on above: Performed By: #### R EJEC, BMPX #### [facility] [address] [place] [address] 26246 Wellness Manager: Lius Solis MD CO2 [Moles/Vol] 23 mmol/L Normal 20-31 [facility] Comment on above: Performed By: #### R EJEC, BMPX #### [facility] [address] [place] [address] [phone] Wellness Manager: Luis Solis MD Creatinine [Mass/Vol] 1.33 mg/dL High 0.50-0.90 [facility] Comment on above: Performed By: #### R CHITO BMPX #### [facility] [address] [place] [address] 73222 Wellness Manager: Luis Solis MD GFR/1.73 sq M.predicted among non-blacks MDRD (S/P/Bld) [Vol rate/Area] 41 mL/min/{1.73_m2} Low >60 [facility] Comment on above: Result Comment: Effective [...] Performed By: #### R CHITO BMPX #### [facility] [address] [place] [address] 21282 Wellness Manager: Luis Solis MD Glucose [Mass/Vol] 243 mg/dL High 70-99 [facility] Comment on above: Performed By: #### Jeff DALE BMPX #### [facility] [employer] [address] [place] [address] 70323 Wellness Manager: Luis Solis MD Potassium [Moles/Vol] 4.5 mmol/L Normal 3.7-5.3 [facility] Comment on above: Performed By: #### R CHITO BMPX #### [facility] [address] [place] [address] 82964 Wellness Manager: Luis Solis MD Sodium [Moles/Vol] 140 mmol/L Normal 135-144 [facility] Comment on above: Performed By: #### R CHITO BMPX #### [address] [address] Wellness Manager: Luis Solis MD Urea nitrogen [Mass/Vol] 21 mg/dL Normal 8-23 [facility] Comment on above: Performed By: #### Jeff DALE BMPX #### [address] [address] Wellness Manager: Luis Solis MD Brain Natri. Peptideon 09-28 Natriuretic peptide B (Bld) [Mass/Vol] 5275 pg/mL High <300 [facility] Comment on above: Result Comment: An age-independent cutoff point of 300 pg/ml has a 98% negative predictive value excluding acute heart failure. Performed By: #### Yo Ram BMPX #### [address] [address] Wellness Manager: Luis Solis MD C-Reactive Proteinon 022 CRP [Mass/Vol] 48.0 mg/L High 0.0-5.0 [facility] Comment on above: Performed By: #### Jeff DALE BMPX #### [address] [address] Wellness Manager: Luis Solis MD CBC with Diffon 09-28-2022 Abs. Basophil 0.06 k/uL Normal 0.00-0.20 [facility] Comment on above: Performed By: #### H H, BMPX #### [address] [address] Wellness Manager: Luis Solis MD Abs.Imm.Granulocyte 0.16 k/uL Normal 0.00-0.30 [facility] Comment on above: Performed By: #### H Yo, BMPX #### [facility] [address] [place] [address] 13549 Wellness Manager: Luis Solis MD Abs.Neutrophil (Seg) 10.78 k/uL High 1.50-8.10 [facility] Comment on above: Performed By: #### H H, BMPX #### [address] [address] Wellness Manager: Luis Solis MD Basophils/100 WBC (Bld) 1 % Normal 0-2 [facility] Comment on above: Performed By: #### H H, BMPX #### [address] [address] Wellness Manager: Luis Solis MD Eosinophils (Bld) [#/Vol] 0.20 10*3/uL Normal 0.00-0.44 [facility] Comment on above: Performed By: #### H H, BMPX #### [address] [address] Wellness Manager: Luis Solis MD Eosinophils/100 WBC (Bld) 2 % Normal 1-4 [facility] Comment on above: Performed By: #### H H, BMPX #### [address] [address] Wellness Manager: Luis Solis MD Erythrocyte distribution width (RBC) [Ratio] 16.7 % High 11.8-14.4 [facility] Comment on above: Performed By: #### H H, BMPX #### [address] [address] Wellness Manager: Luis Solis MD Hematocrit (Bld) [Volume fraction] 27.2 % Low 36.3-47.1 [facility] Comment on above: Performed By: #### H H, BMPX #### [facility] [address] [place] [address] 89655 Wellness Manager: Luis Solis MD Hemoglobin (Bld) [Mass/Vol] 8.1 g/dL Low 11.9-15.1 [facility] Comment on above: Performed By: #### H H, BMPX #### [address] [address] Wellness Manager: Luis Solis MD Immature granulocytes/100 WBC (Bld) 1 % High 0 [facility] Comment on above: Performed By: #### H H, BMPX #### [address] [address] Wellness Manager: Luis Solis MD Lymphocytes (Bld) [#/Vol] 0.74 10*3/uL Low 1.10-3.70 [facility] Comment on above: Performed By: #### H H, BMPX #### [address] [address] Wellness Manager: Luis Solis MD Lymphocytes/100 WBC (Bld) 6 % Low 24-43 [facility] Comment on above: Performed By: #### H H, BMPX #### [address] [address] Wellness Manager: Luis Solis MD MCH (RBC) [Entitic mass] 26.9 pg Normal 25.2-33.5 [facility] Comment on above: Performed By: #### H H, BMPX #### [address] [address] Wellness Manager: Luis Solis MD MCHC (RBC) [Mass/Vol] 29.8 g/dL Normal 28.4-34.8 [facility] Comment on above: Performed By: #### H H, BMPX #### [address] [address] Wellness Manager: Luis Solis MD MCV (RBC) [Entitic vol] 90.4 fL Normal 82.6-102.9 [facility] Comment on above: Performed By: #### H H, BMPX #### [address] [address] Wellness Manager: Luis Solis MD Monocytes (Bld) [#/Vol] 0.78 10*3/uL Normal 0.10-1.20 [facility] Comment on above: Performed By: #### H H, BMPX #### [address] [address] Wellness Manager: Luis Solis MD Monocytes/100 WBC (Bld) 6 % Normal 3-12 [facility] Comment on above: Performed By: #### H H, BMPX #### [address] [address] Wellness Manager: Luis Solis MD Neutrophil (Seg) 84 % High 36-65 [facility] Comment on above: Performed By: #### H H, BMPX #### [address] [address] Wellness Manager: Luis Solis MD NRBC Automated 0.2 per 100 WBC High 0.0 [facility] Comment on above: Performed By: #### H H, BMPX #### [address] [address] Wellness Manager: Luis Solis MD Platelet mean volume (Bld) [Entitic vol] 9.9 fL Normal 8.1-13.5 [facility] Comment on above: Performed By: #### H H, BMPX #### [facility] [address] [place] [address] 86737 Wellness Manager: Luis Solis MD Platelets (Bld) [#/Vol] 391 10*3/uL Normal 138-453 [facility] Comment on above: Performed By: #### H H, BMPX #### [facility] [address] [place] [address] 38163 Wellness Manager: Luis Solis MD RBC (Bld) [#/Vol] 3.01 10*6/uL Low 3.95-5.11 [facility] Comment on above: Performed By: #### H H, BMPX #### [facility] [place] [address] Wellness Manager: Luis Solis MD RBC morphology finding Nom (Bld) ANISOCYTOSIS PRESENT Normal [facility] Comment on above: Performed By: #### H H, BMPX #### [facility] [address] [place] [address] 15091 Wellness Manager: Luis Solis MD WBC (Bld) [#/Vol] 12.7 10*3/uL High 3.5-11.3 [facility] Comment on above: Performed By: #### H H, BMPX #### [facility] [address] [place] [address] 23948 Wellness Manager: Luis Solis MD CT CHEST PULMONARY EMBOLISM [...] Matthew Chong MD 09/28/22 Final result Normal [facility] Comp Metabolic Profon 2021 Albumin [Mass/Vol] 3.5 g/dL Normal 3.5-5.2 [facility] Comment on above: Performed By: #### H H, BMPX #### [facility] [address] [place] [address] Wellness Manager: Luis Solis MD Albumin/Glob Ratio 0.9 Low 1.0-2.5 [facility] Comment on above: Performed By: #### H H, BMPX #### [facility] [address] [place] [address] Wellness Manager: Luis Solis MD Alkaline Phos 104 U/L Normal 35-104 [facility] Comment on above: Performed By: #### H H, BMPX #### [address] [address] Wellness Manager: Luis Solis MD ALT [Catalytic activity/Vol] 7 U/L Normal 5-33 [facility] Comment on above: Performed By: #### H H, BMPX #### [address] [address] Wellness Manager: Luis Solis MD Anion gap [Moles/Vol] 13 mmol/L Normal 9-17 [facility] Comment on above: Performed By: #### H H, BMPX #### [address] [address] Wellness Manager: Luis Solis MD AST [Catalytic activity/Vol] 15 U/L Normal <32 [facility] Comment on above: Performed By: #### H H, BMPX #### [address] [address] Wellness Manager: Luis Solis MD Bilirubin [Mass/Vol] 0.5 mg/dL Normal 0.3-1.2 [facility] Comment on above: Performed By: #### H H, BMPX #### [address] [address] Wellness Manager: Luis Solis MD Calcium [Mass/Vol] 8.5 mg/dL Low 8.6-10.4 [facility] Comment on above: Performed By: #### H H, BMPX #### [facility] [address] [place] [address]351 Wellness Manager: Luis Solis MD Chloride [Moles/Vol] 102 mmol/L Normal 98-107 [facility] Comment on above: Performed By: #### H H, BMPX #### [facility] [place] [address] Wellness Manager: Luis Solis MD CO2 [Moles/Vol] 24 mmol/L Normal 20-31 [facility] Comment on above: Performed By: #### H H, BMPX #### [facility] [employer] [address] [place] [address]258 Wellness Manager: Luis Solis MD Creatinine [Mass/Vol] 1.62 mg/dL High 0.50-0.90 [facility] Comment on above: Performed By: #### H H, BMPX #### [facility] [address] [place] [address] 93988 Wellness Manager: Luis Solis MD GFR/1.73 sq M.predicted among non-blacks MDRD (S/P/Bld) [Vol rate/Area] 33 mL/min/{1.73_m2} Low >60 [facility] Comment on above: Result Comment: Effective [...] Performed By: #### H H, BMPX #### [facility] [address] [place] [address]57 Wellness Manager: Luis Solis MD Glucose [Mass/Vol] 272 mg/dL High 70-99 [facility] Comment on above: Performed By: #### H H, BMPX #### [facility] [employer] [address] [place] [address] 07480 Wellness Manager: Luis Solis MD Potassium [Moles/Vol] 4.4 mmol/L Normal 3.7-5.3 [facility] Comment on above: Performed By: #### H H, BMPX #### [facility] [address] [place] [address] Wellness Manager: Luis Solis MD Protein [Mass/Vol] 7.3 g/dL Normal 6.4-8.3 [facility] Comment on above: Performed By: #### H H, BMPX #### [facility] [employer] [address] [place] [address] 27093 Wellness Manager: Luis Solis MD Sodium [Moles/Vol] 139 mmol/L Normal 135-144 [facility] Comment on above: Performed By: #### H H, BMPX #### [facility] [employer] [address] [place] [address] Wellness Manager: Luis Solis MD Urea nitrogen [Mass/Vol] 22 mg/dL Normal 8-23 [facility] Comment on above: Performed By: #### H H, BMPX #### [facility] [address] [place] [address] 6[address] Wellness Manager: Luis Solis MD Lactate, Sepsison 09-28-2022 Lactic Acid,Sep Wbld 0.6 mmol/L Normal 0.5-1.9 [facility] Comment on above: Performed By: #### R EJEC, BMPX #### [facility] [employer] [address] [place] [address] Wellness Manager: Luis Solis MD Lactic Acid,Sep Wbld 1.5 mmol/L Normal 0.5-1.9 [facility] Comment on above: Performed By: #### H H, BMPX #### [facility] [employer] [address] [place] [address] Wellness Manager: Luis Solis MD Legionella Ag, Uron 09-28-20 Legionella Ag, Ur Negative Normal NEG [facility] Comment on above: Result Comment: L. p neumophila serogroup 1 antigen not detected. A negative result does not exclude infection with Leginella pnemophila serogroup 1 nor does it rule out other microbial-caused respiratory infections of disease caused by other serogroups of Legionella pneumophila. Performed By: #### H H, BMPX #### [facility] [address] [place] [address] [phone] Wellness Manager: Luis Solis MD PTon 09-28-2022 INR Coag (PPP) [Relative time] 1.1 {INR} Normal [facility] Comment on above: Result Comment: Therapeutic Range: Moderate Anticoagulant Intensity: INR = 2.0-3.0 High Anticoagulant Intensity: INR = 2.5-3.5 Performed By: #### H H, BMPX #### [facility] [address] [place] [address] [phone] Wellness Manager: Luis Solis MD PT Coag (PPP) [Time] 11.8 s Normal 9.1-12.3 [facility] Comment on above: Performed By: #### H H, BMPX #### [facility] [address] [place] [address] [phone] Wellness Manager: Luis Solis MD [id number] 09-28-2022 SARS-CoV-2 (COVID-19) RNA SIRI+probe Ql (Unsp spec) Not detected Normal NOTDET [facility] Comment on above: Result Comment: Rapid [...] management decisions. Fact sheet for Healthcare Providers: https://www.fda.gov/media/542824/download Fact sheet for Patients: https://www.fda.gov/media/457945/download Methodology: Isothermal Nucleic Acid Amplification Performed By: #### Jeff DALE, BMPX #### [facility] [place] [address] Wellness Manager: Luis Solis MD Sedimentation Rateon 022 Sedimentation Rate 61 mm/Hr High 0-30 [facility] Comment on above: Performed By: #### Jeff DALE, BMPX #### [facility] [address] [place] [address] Wellness Manager: Luis Solis MD Strep pneum Ag,CSF/Uron 09-15 Strep pneum Ag Negative Normal [facility] Comment on above: Result Comment: Stre p pneumoniae antigen not detected Performed By: #### Jeff DALE, BMPX #### [facility] [employer] [address] [place] [address] Wellness Manager: Luis Solis MD Strep pneu Ag Source .URINE Normal [facility] Comment on above: Performed By: #### Jeff DALE, BMPX #### [address] [address] Wellness Manager: Luis Solis MD Troponinon 09-28-2022 Troponin, High Sens 222 ng/L Critically high 0-14 [facility] Comment on above: Result Comment: High Sensitivity Troponin values cannot be compared with other Troponin methodologies. Patients with high levels of Biotin oral intake (i.e >5mg/day) may have falsely decreased Troponin levels. Samples collected within 8 hours of biotin intake may require additional information for diagnosis. Performed By: #### Jeff DALE, BMPX #### [address] [address] Wellness Manager: Luis Solis MD Troponin, High Sens 219 ng/L Critically high 0-14 [facility] Comment on above: Result Comment: High Sensitivity Troponin values cannot be compared with other Troponin methodologies. Patients with high levels of Biotin oral intake (i.e >5mg/day) may have falsely decreased Troponin levels. Samples collected within 8 hours of biotin intake may require additional information for diagnosis. Performed By: #### H H, BMPX #### [facility] [address] [place] [address] Wellness Manager: Luis Solis MD Type + Screenon 09-28-2022 Type + Screen Sample Expiration 10/01/2022,2359 Arm Band Number BE [id number] ABO/Rh(D) O NEGATIVE Antibody Screen NEGATIVE Normal [facility] Comment on above: Performed By: #### H H, BMPX #### [facility] [address] [place] [address] Wellness Manager: Luis Solis MD Urinalysis w/ Microon 2021 Bacteria MANY Abnormal NONE [facility] Comment on above: Performed By: #### H H, BMPX #### [facility] [address] [place] [address] Wellness Manager: Luis Solis MD Bilirubin, SemiQt,Ur Negative Normal NEG [facility] Comment on above: Performed By: #### H H, BMPX #### [facility] [address] [place] [address] Wellness Manager: Luis Solis MD Blood, Urine Negative Normal NEG [facility] Comment on above: Performed By: #### H H, BMPX #### [facility] [address] [place] [address] Wellness Manager: Luis Solis MD Casts 0 TO 2 HYALINE Normal 0-8 [facility] Comment on above: Result Comment: Refe rence range defined for non-centrifuged specimen. Performed By: #### H H, BMPX #### [facility] [address] [place] [address] Wellness Manager: Luis Solis MD Clarity (U) Cloudy Abnormal CLEAR [facility] Comment on above: Performed By: #### H H, BMPX #### [address] [address] Wellness Manager: Luis Solis MD Color (U) Yellow Normal YEL [facility] Comment on above: Performed By: #### H H, BMPX #### [address] [address] Wellness Manager: Luis Solis MD Epithelial cells LM Ql (Urine sed) 5 TO 10 Normal 0-5 [facility] Comment on above: Performed By: #### H H, BMPX #### [address] [address] Wellness Manager: Luis Solis MD Glucose Ql (U) 2+ Abnormal NEG [facility] Comment on above: Performed By: #### H H, BMPX #### [address] [address] Wellness Manager: Luis Solis MD Ketones Ql (U) TRACE Abnormal NEG [facility] Comment on above: Performed By: #### H H, BMPX #### [address] [address] Wellness Manager: Luis Solis MD Leukocyte esterase Test strip Ql (U) TRACE Abnormal NEG [facility] Comment on above: Performed By: #### H H, BMPX #### [address] [address] Wellness Manager: Luis Solis MD Nitrite,Ur Negative Normal NEG [facility] Comment on above: Performed By: #### H H, BMPX #### [address] [address] Wellness Manager: Luis Solis MD PH,Ur 5.5 Normal 5.0-8.0 [facility] Comment on above: Performed By: #### H H, BMPX #### [address] [address] Wellness Manager: Luis Solis MD Protein Ql (U) TRACE Abnormal NEG [facility] Comment on above: Performed By: #### H H, BMPX #### [address] [address] Wellness Manager: Luis Solis MD Spec. [place],Ur 1.018 Normal 1.005-1.030 [facility] Comment on above: Performed By: #### H H, BMPX #### [address] [address] Wellness Manager: Luis Solis MD Urine RBC's 0 TO 2 Normal 0-4 [facility] Comment on above: Result Comment: Refe rence range defined for non-centrifuged specimen. Performed By: #### H H, BMPX #### [address] [address] Wellness Manager: Luis Solis MD Urine WBC's 10 TO 20 Normal 0-5 [facility] Comment on above: Performed By: #### H H, BMPX #### [address] [address] Wellness Manager: Luis Solis MD Urobilinogen,Ur Normal Normal NORM [facility] Comment on above: Performed By: #### H H, BMPX #### [address] [address] Wellness Manager: Luis Solis MD XR CHEST PORTABLEon 09-28-20 [...] Garth Herr MD 09/28/22 Final result Normal [facility] CT BRAIN WO CONTRASTon 03-31 CT BRAIN WO CONTRAST [facility] Department of Radiology [address] [place] [address] ===== Patient Name: CUCA GOODWIN : 1945 Sex: F Age: Race: White Pt. 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 Electronically signed: Mari Chavez. Transcribed by: [email or web address], User Resident: Electronically Signed by: MARI CHAVEZ @ 03/31/2022 03:46 PM Normal [facility] Comment on above: Order Comment: hydro cephalus s/p vp emerging media shunt RADAR SYSTEMS ENGINEER SHUNT SERIESon 03-31-2022 RADAR SYSTEMS ENGINEER SHUNT SERIES [facility] Department of Radiology [address] [place] [id number] ===== Patient Name: CUCA GOODWIN : [...] , Ordering Provider - A NIELS MSN GROCERY STORE ASSOCIATE , Exam: RADAR SYSTEMS ENGINEER SHUNT SERIES ===== RADAR SYSTEMS ENGINEER SHUNT SERIES HISTORY: Shunt evaluation. COMPARISON: 09/17/2020. [...] described. Electronically signed: Lam Chew. Transcribed by: [email or web address], User Resident: Electronically Signed by: LAM CHEW @ 04/03/2022 08:50 AM Normal [facility] Comment on above: Order Comment: , .br E.brEr/o kinking or discontinuity of shunt tubing and do image perpendicularl to valve to check OP , .brr/o kinking or discontinuity of shunt tubing and do image perpendicularl to valve to check OP , , , Ordering Provider - Danielle BOWSER MSN GROCERY STORE ASSOCIATE , Lipid Profileon 03-26-2021 Cholesterol [Mass/Vol] 117 mg/dL Normal <200 [facility] Comment on above: Result Comment: Cholesterol Guidelines: <200 Desirable 200-240 Borderline >240 Undesirable Performed By: #### L IPR #### [address] [place], [place] [id number] Wellness Manager: Luis Solis MD Cholesterol in HDL [Mass/Vol] 39 mg/dL Low >40 [facility] Comment on above: Result Comment: HDL Guidelines: <40 Undesirable 40-59 Borderline >59 Desirable Performed By: #### L IPR #### [address] [place], [place] [id number] Wellness Manager: Luis Solis MD Cholesterol in LDL [Mass/Vol] 62 mg/dL Normal 0-130 [facility] Comment on above: Result Comment: LDL Guidelines: <100 Desirable 100-129 Near to/above Desirable 130-159 Borderline >159 Undesirable Direct (measured) LDL and calculated LDL are not interchangeable tests. Performed By: #### L IPR #### [address] [place] [address] Wellness Manager: Luis Solis MD Cholesterol.total/C holesterol in HDL [Mass ratio] 3.0 {ratio} Normal <5 [facility] Comment on above: Performed By: #### L IPR #### [address] [address] Wellness Manager: Luis Solis MD Triglyceride [Mass/Vol] 79 mg/dL Normal <150 [facility] Comment on above: Result Comment: Triglyceride Guidelines: <150 Desirable 150-199 Borderline 200-499 High >499 Very high Based on AHA Guidelines for fasting triglyceride, August 2012. Performed By: #### L IPR #### [address] [address] Wellness Manager: Luis Solis MD Cholesterol,VLDL NOT REPORTED Normal 12-14 [facility] Comment on above: Performed By: #### L IPR #### [address] [address] Wellness Manager: Luis Solis MD Uric Acidon 8 Urate [Mass/Vol] 6.8 mg/dL High 2.4-5.7 [facility] Comment on above: Performed By: #### U RI #### [facility] [address] [place] [address] Wellness Manager: Giovanny Carpenter MD Uric AcidOrdered By: Lakeshia Farias on 03-24-2021 Interpretation and review of laboratory results Abnormal [facility] Work Phone: Urate [Mass/Vol] 6.8 mg/dL High 2.4 - 5.7 mg/dL [facility] Work Phone: CBC AUTO DIFFon 03-20-2021 BASO # 0.0 103/ul Normal 0.0-0.1 [facility] Comment on above: Performed By: #### C BC #### [facility] [address] [place], [place] [address] Ghulam Amy Basophils/100 WBC (Bld) 0.4 % Normal 0.2-2.0 [facility] Comment on above: Performed By: #### C BC #### [facility] [address] [address] Ghulam Amy EO # 0.4 103/ul Normal 0.0-0.7 [facility] Comment on above: Performed By: #### C BC #### [facility] [address] [address] Ghulam Amy Eosinophils/100 WBC (Bld) 4.3 % Normal 0.9-7.0 [facility] Comment on above: Performed By: #### C BC #### [facility] [address] [address] Ghulam Amy Erythrocyte distribution width (RBC) [Ratio] 15.9 % Critically high 11.0-15.0 [facility] Comment on above: Performed By: #### C BC #### [facility] [address] [id number] Ghulam Amy Hematocrit (Bld) [Volume fraction] 28.5 % Critically low 36.0-48.0 [facility] Comment on above: Performed By: #### C BC #### [facility] [address] [id number] Ghulam Amy Hemoglobin (Bld) [Mass/Vol] 8.9 g/dL Critically low 12.0-16.0 [facility] Comment on above: Performed By: #### C BC #### [facility] [address] [id number] Ghulam Amy IG # 0.04 10e3/ul Critically high 0.00-0.03 [facility] [place] [facility] Comment on above: Performed By: #### C BC #### [facility] [address] [place], [place] [id number] Ghulamgabriela Reyes IG % 0.4 % Normal 0.0-0.5 [facility] Comment on above: Performed By: #### C BC #### [facility] [address] [place], [place] [id number] Ghulamgabriela Reyes LYMPH # 2.2 103/ul Normal 1.2-3.8 [facility] Comment on above: Performed By: #### C BC #### [facility] [address] [place], [place] [id number] Ghulam Reyes Lymphocytes/100 WBC (Bld) 21.9 % Normal 20.5-60.0 [facility] Comment on above: Performed By: #### C BC #### [facility] [address] [place] [address] Ghulam Reyes MANUAL DIFF REQ NO Normal [facility] Comment on above: Performed By: #### C BC #### [facility] [address] [place] [address] Ghulam Reyes MCH (RBC) [Entitic mass] 27.1 pg Normal 26.7-34.0 [facility] Comment on above: Performed By: #### C BC #### [facility] [address] [place] [address] Ghulam Reyes MCHC (RBC) [Mass/Vol] 31.2 g/dL Normal 29.9-35.2 [facility] Comment on above: Performed By: #### C BC #### [facility] [address] [place] [address] Ghulamgabriela Reyes MCV (RBC) [Entitic vol] 86.9 fL Normal 81.0-99.0 [facility] Comment on above: Performed By: #### C BC #### [facility] [address] [place], [place] [id number] Ghulam Amy MONO # 1.0 103/ul Critically high 0.3-0.8 [facility] Comment on above: Performed By: #### C BC #### [facility] [address] [place] [address] Ghulam Reyes Monocytes/100 WBC (Bld) 10.1 % Normal 1.7-12.0 [facility] Comment on above: Performed By: #### C BC #### [facility] [address] [place] [address] Ghulam Reyes NEUT # 6.2 103/ul Normal 1.4-6.5 [facility] Comment on above: Performed By: #### C BC #### [facility] [address] [place] [address] Ghulam Reyes Neutrophils/100 WBC (Bld) 62.9 % Normal 43.0-75.0 [facility] Comment on above: Performed By: #### C BC #### [facility] [address] [place] [address] Ghulamgabriela Reyes Platelet mean volume (Bld) [Entitic vol] 10.2 fL Normal 9.5-13.5 [facility] Comment on above: Performed By: #### C BC #### [facility] [address] [place] [address] Ghulamgabriela Sotoen PLT 289 103/ul Normal 150-450 [facility] Comment on above: Performed By: #### C BC #### [facility] [address] [place] [address] Ghulamgabriela Sotoen RBC 3.28 106/ul Critically low 4.20-5.40 [facility] Comment on above: Performed By: #### C BC #### [facility] [address] [place] [address] Ghulamgabriela Sotoen WBC 9.9 103/ul Normal 4.0-11.0 [facility] Comment on above: Performed By: #### C BC #### [facility] [address] [place], [place] [id number] Ghulam Reyes PROF 14(COMP METB)on 021 Albumin [Mass/Vol] 2.8 g/dL Critically low 3.5-5.0 [facility] Comment on above: Performed By: #### C MP #### [facility] [address] [place], [place] [address] Ghulam Amy Albumin/Globulin [Mass ratio] 0.6 {ratio} Normal [facility] Comment on above: Performed By: #### C MP #### [facility] [address] [place], [place] [address] Ghulam Amy ALP [Catalytic activity/Vol] 95 U/L Normal 38-126 [facility] Comment on above: Performed By: #### C MP #### [facility] [address] [place], [place] [address] Ghulam Amy ALT [Catalytic activity/Vol] 16 U/L Normal 9-52 [facility] Comment on above: Performed By: #### C MP #### [facility] [address] [place], [place] [address] Ghulam Amy Anion gap [Moles/Vol] 11.6 mmol/L Normal [facility] Comment on above: Performed By: #### C MP #### [facility] [address] [place], [place] [id number] Ghulam Amy AST [Catalytic activity/Vol] 13 U/L Critically low 14-36 [facility] Comment on above: Performed By: #### C MP #### [facility] [address] [place] [address] Ghulam Amy Bilirubin [Mass/Vol] 0.4 mg/dL Normal 0.2-1.3 [facility] Comment on above: Performed By: #### C MP #### [facility] [address] [place] [address] Ghulam Amy Calcium [Mass/Vol] 8.9 mg/dL Normal 8.4-10.2 [facility] Comment on above: Performed By: #### C MP #### [facility] [address] [place] [address] Ghulam Amy Chloride [Moles/Vol] 103 mmol/L Normal 98-107 [facility] Comment on above: Performed By: #### C MP #### [facility] [address] [place], [place] [address] Ghulam Amy CO2 [Moles/Vol] 27.4 mmol/L Normal 22.0-30.0 [facility] Comment on above: Performed By: #### C MP #### [facility] [address] [place], [place] [address] Ghulam Amy Creatinine [Mass/Vol] 1.86 mg/dL Critically high 0.52-1.04 [facility] Comment on above: Performed By: #### C MP #### [facility] [address] [place], [place] [address] Ghulam Amy EGFR-AF ZIMBABWEAN 32 mL/min/1.73m2 Critically low >=60 [facility] Comment on above: Performed By: #### C MP #### [facility] [address] [place] [phone] Ghulam Amy EGFR-NON AF ZIMBABWEAN 26 mL/min/1.73m2 Critically low >=60 [facility] Comment on above: Performed By: #### C MP #### [facility] [address] [address] Ghulam Amy Globulin (S) [Mass/Vol] 4.6 g/dL Normal [facility] Comment on above: Performed By: #### C MP #### [facility] [address] [place] [phone] Ghulam Amy Glucose [Mass/Vol] 174 mg/dL Critically high 74-106 [facility] Comment on above: Performed By: #### C MP #### [facility] [address] [phone] Ghulam Amy Potassium [Moles/Vol] 4.0 mmol/L Normal 3.4-5.0 [facility] Comment on above: Performed By: #### C MP #### [facility] [address] [place] [phone] Ghulam Amy Protein [Mass/Vol] 7.4 g/dL Normal 6.1-8.2 [facility] Comment on above: Performed By: #### C MP #### [facility] [address] [place] [phone] Ghulam Amy Sodium [Moles/Vol] 138 mmol/L Normal 137-145 [facility] Comment on above: Performed By: #### C MP #### [facility] [address] [place] [address] Ghulam Amy Urea nitrogen [Mass/Vol] 24.0 mg/dL Critically high 7.0-17.0 [facility] Comment on above: Performed By: #### C MP #### [facility] [address] [place] [address] Ghulam Amy Urea nitrogen/Creatinine [Mass ratio] 12.9 mg/mg Normal [facility] Comment on above: Performed By: #### C MP #### [facility] [address] [place] [address] Ghulam Amy RESPIRATORY PANEL PLUSon Adenovirus Not detected Normal NOT DETECTED [facility] Comment on above: Performed By: #### R SPLUS #### [facility] [address] [place] [address] Ghulam Amy B. Parapertusis Not detected Normal NOT DETECTED [facility] Comment on above: Performed By: #### R SPLUS #### [facility] [address] [place] [address] Ghulam Amy B. Pertussis Not detected Normal NOT DETECTED The [facility] Comment on above: Performed By: #### R SPLUS #### [facility] [address] [place] [address] Ghulam Amy Chlamydia Pneumoniae Not detected Normal NOT DETECTED [facility] Comment on above: Performed By: #### R SPLUS #### [facility] [address] [place] [address] Ghulam Amy Coronavirus 229E Not detected Normal NOT DETECTED [facility] Comment on above: Performed By: #### R SPLUS #### [facility] [address] [place] [address] Ghulam Amy Coronavirus HKU1 Not detected Normal NOT DETECTED The [facility] Comment on above: Performed By: #### R SPLUS #### [facility] [address] [place] [address] Ghulam Amy Coronavirus NL63 Not detected Normal NOT DETECTED The [facility] Comment on above: Performed By: #### R SPLUS #### [facility] [address] [place] [address] Ghulam Amy Coronavirus OC43 Not detected Normal NOT DETECTED [facility] Comment on above: Performed By: #### R SPLUS #### [facility] [address] [place] [address] Ghulam Amy Influenza A H1 2009 Not detected Normal NOT DETECTED [facility] Comment on above: Performed By: #### R SPLUS #### [facility] [address] [place] [address] Ghulam Amy Influenza B Not detected Normal NOT DETECTED [facility] Comment on above: Performed By: #### R SPLUS #### [facility] [address] [place] [address] Ghulam Amy Metapneumovirus Not detected Normal NOT DETECTED [facility] Comment on above: Performed By: #### R SPLUS #### [facility] [address] [place] [address] Ghulam Amy Mycoplas. Pneumoniae Not detected Normal NOT DETECTED The [facility] Comment on above: Performed By: #### R SPLUS #### [facility] [address] [place] [address] Ghulam Amy Parainfluenza 1 Not detected Normal NOT DETECTED [facility] Comment on above: Performed By: #### R SPLUS #### [facility] [address] [place] [address] Ghulam Amy Parainfluenza 2 Not detected Normal NOT DETECTED [facility] Comment on above: Performed By: #### R SPLUS #### [facility] [address] [place] [address] Ghulam Amy Parainfluenza 3 Not detected Normal NOT DETECTED [facility] Comment on above: Performed By: #### R SPLUS #### [facility] [address] [place] [address] Ghulam Amy Parainfluenza 4 Not detected Normal NOT DETECTED [facility] Comment on above: Performed By: #### R SPLUS #### [facility] [address] [place] [address] Ghulam Amy Rhino/Enterovirus Not detected Normal NOT DETECTED The [facility] Comment on above: Performed By: #### R SPLUS #### [facility] [address] [place] [address] Ghulam Reyes RP2 Header 1 RESPIRATORY PANEL: VIRUSES Normal [facility] Comment on above: Performed By: #### R SPLUS #### [facility] [address] [place] [address] Ghulam Reyes RP2 Header 2 RESPIRATORY PANEL: BACTERIA Normal [facility] Comment on above: Performed By: #### R SPLUS #### [facility] [address] [place] [address] Ghulam Amy RP2 Header 4 EUA SEE BELOW Normal The [facility] Comment on above: Result Comment: This test is not yet approved or cleared by the [place] FDA. When there are no FDA-approved or cleared tests available, and other criteria are met, FDA can make tests available under an emergency access mechanism called an Emergency Use Authorization (EUA). The EUA for this test is supported by the [place] of Health and Human Service?s (HHS?s) declaration [...] used). Performed By: #### R SPLUS #### [facility] [address] [place] [address] Ghulam Reyes RSV Not detected Normal NOT DETECTED [facility] Comment on above: Performed By: #### R SPLUS #### [facility] [address] [place] [address] Ghulam Reyes SARS-CoV-2 (COVID-19) RNA SIRI+probe Ql (Unsp spec) Not detected Normal NOT DETECTED The [facility] Comment on above: Performed By: #### R SPLUS #### [facility] [address] [place] [address] Ghulam Reyes URIC ACID SERUMon 03-20-2021 Urate [Mass/Vol] 7.4 mg/dL Critically high 2.5-6.2 [facility] Comment on above: Performed By: #### U GIRISH #### [facility] [address] [place] [address] Ghulamgabriela Reyes CBC AUTO DIFFon 03-19-2021 BASO # 0.0 103/ul Normal 0.0-0.1 [facility] Comment on above: Performed By: #### C BC #### [facility] [address] [place] [address] Ghulamgabriela Reyes Basophils/100 WBC (Bld) 0.3 % Normal 0.2-2.0 [facility] Comment on above: Performed By: #### C BC #### [facility] [address] [place] [address] Ghulamgabriela Reyes EO # 0.1 103/ul Normal 0.0-0.7 [facility] Comment on above: Performed By: #### C BC #### [facility] [address] [place] [address] Ghulam Reyes Eosinophils/100 WBC (Bld) 0.9 % Normal 0.9-7.0 [facility] Comment on above: Performed By: #### C BC #### [facility] [address] [place] [address] Ghulamgabriela Reyes Erythrocyte distribution width (RBC) [Ratio] 15.5 % Critically high 11.0-15.0 [facility] Comment on above: Performed By: #### C BC #### [facility] [address] [place] [address] Ghulam Amy Hematocrit (Bld) [Volume fraction] 28.1 % Critically low 36.0-48.0 [facility] Comment on above: Performed By: #### C BC #### [facility] [address] [place] [address] Ghulam Amy Hemoglobin (Bld) [Mass/Vol] 8.9 g/dL Critically low 12.0-16.0 [facility] Comment on above: Performed By: #### C BC #### [facility] [address] [place] [address] Ghulamgabriela Reyes IG # 0.05 10e3/ul Critically high 0.00-0.03 [facility] [place] [facility] Comment on above: Performed By: #### C BC #### [facility] [address] [place] [address] Ghulamgabriela Reyes IG % 0.5 % Normal 0.0-0.5 [facility] Comment on above: Performed By: #### C BC #### [facility] [address] [place] [address] Ghulamgabriela Reyes LYMPH # 1.9 103/ul Normal 1.2-3.8 [facility] Comment on above: Performed By: #### C BC #### [facility] [address] [place] [address] Ghulam Reyes Lymphocytes/100 WBC (Bld) 17.2 % Critically low 20.5-60.0 [facility] Comment on above: Performed By: #### C BC #### [facility] [address] [place] [address] Ghulam Reyes MANUAL DIFF REQ NO Normal [facility] Comment on above: Performed By: #### C BC #### [facility] [address] [place] [address] Ghulam Reyes MCH (RBC) [Entitic mass] 27.1 pg Normal 26.7-34.0 [facility] Comment on above: Performed By: #### C BC #### [facility] [address] [place] [address] Ghulam Reyes MCHC (RBC) [Mass/Vol] 31.7 g/dL Normal 29.9-35.2 [facility] Comment on above: Performed By: #### C BC #### [facility] [address] [place] [address] Ghulam Reyes MCV (RBC) [Entitic vol] 85.4 fL Normal 81.0-99.0 [facility] Comment on above: Performed By: #### C BC #### [facility] [address] [place] [address] Ghulam Amy MONO # 1.0 103/ul Critically high 0.3-0.8 [facility] Comment on above: Performed By: #### C BC #### [facility] [address] [place], [place] [address] Ghulam Sotoen Monocytes/100 WBC (Bld) 9.5 % Normal 1.7-12.0 [facility] Comment on above: Performed By: #### C BC #### [facility] [address] [place] [id number] Ghulam Sotoen NEUT # 7.7 103/ul Critically high 1.4-6.5 [facility] Comment on above: Performed By: #### C BC #### [facility] [address] [id number] Ghulam Amy Neutrophils/100 WBC (Bld) 71.6 % Normal 43.0-75.0 [facility] Comment on above: Performed By: #### C BC #### [facility] [address] [place], [place] [id number] Ghulamgabriela Reyes Platelet mean volume (Bld) [Entitic vol] 10.1 fL Normal 9.5-13.5 [facility] Comment on above: Performed By: #### C BC #### [facility] [address] [place], [place] [id number] Ghulam Amy PLT 285 103/ul Normal 150-450 [facility] Comment on above: Performed By: #### C BC #### [facility] [address] [place], [place] [id number] Ghulam Amy RBC 3.29 106/ul Critically low 4.20-5.40 [facility] Comment on above: Performed By: #### C BC #### [facility] [address] [place], [place] [id number] Ghulam Amy WBC 10.7 103/ul Normal 4.0-11.0 [facility] Comment on above: Performed By: #### C BC #### [facility] [address] [place], [place] [id number] Ghulam Reyes MAGNESIUMon 03-19-2021 Magnesium [Mass/Vol] 1.9 mg/dL Normal 1.6-2.3 [facility] Comment on above: Performed By: #### M G ####[facility] [address] [place], [place] [address]Kyczaa Karen POINT OF CARE GLUCOSEon Glucose [Mass/Vol] 68 mg/dL Critically low 74-106 [facility] Comment on above: Performed By: #### P OCGLUC #### [facility] [address] [place], [place] [address] Ghulam Amy Glucose [Mass/Vol] 91 mg/dL Normal 74-106 [facility] Comment on above: Performed By: #### P OCGLUC #### [facility] [address] [place] [id number] Ghulam Amy Glucose [Mass/Vol] 136 mg/dL Critically high 74-106 [facility] Comment on above: Performed By: #### P OCGLUC #### [facility] [address] [address] Ghulam Amy PROF 14(COMP METB)on Albumin [Mass/Vol] 2.7 g/dL Critically low 3.5-5.0 [facility] Comment on above: Performed By: #### C MP #### [facility] [address] [place], [place] [id number] Ghulam Amy Albumin/Globulin [Mass ratio] 0.6 {ratio} Normal [facility] Comment on above: Performed By: #### C MP #### [facility] [address] [id number] Ghulam Amy ALP [Catalytic activity/Vol] 99 U/L Normal 38-126 [facility] Comment on above: Performed By: #### C MP #### [facility] [address] [place] [address] Ghulam Amy ALT [Catalytic activity/Vol] 14 U/L Normal 9-52 [facility] Comment on above: Performed By: #### C MP #### [facility] [address] [id number] Ghulam Amy Anion gap [Moles/Vol] 10.5 mmol/L Normal [facility] Comment on above: Performed By: #### C MP #### [facility] [address] [place], [place] [address] Ghulam Amy AST [Catalytic activity/Vol] 13 U/L Critically low 14-36 [facility] Comment on above: Performed By: #### C MP #### [facility] [address] [place], [place] [address] Ghulam Amy Bilirubin [Mass/Vol] 0.5 mg/dL Normal 0.2-1.3 [facility] Comment on above: Performed By: #### C MP #### [facility] [address] [id number] Ghulam Amy Calcium [Mass/Vol] 9.1 mg/dL Normal 8.4-10.2 [facility] Comment on above: Performed By: #### C MP #### [facility] [address] [id number] Ghulam Amy Chloride [Moles/Vol] 104 mmol/L Normal 98-107 [facility] Comment on above: Performed By: #### C MP #### [facility] [address] [id number] Ghulam Amy CO2 [Moles/Vol] 27.2 mmol/L Normal 22.0-30.0 [facility] Comment on above: Performed By: #### C MP #### [facility] [address] [id number] Ghulam Amy Creatinine [Mass/Vol] 1.57 mg/dL Critically high 0.52-1.04 [facility] Comment on above: Performed By: #### C MP #### [facility] [address] [id number] Ghulam Amy EGFR-AF ZIMBABWEAN 39 mL/min/1.73m2 Critically low >=60 [facility] Comment on above: Performed By: #### C MP #### [facility] [address] [id number] Ghulam Amy EGFR-NON AF ZIMBABWEAN 32 mL/min/1.73m2 Critically low >=60 [facility] Comment on above: Performed By: #### C MP #### [facility] [address] [id number] Ghulam Amy Globulin (S) [Mass/Vol] 4.6 g/dL Normal [facility] Comment on above: Performed By: #### C MP #### [facility] [address] [id number] Ghulam Amy Glucose [Mass/Vol] 209 mg/dL Critically high 74-106 [facility] Comment on above: Performed By: #### C MP #### [facility] [address] [id number] Ghulam Amy Potassium [Moles/Vol] 3.7 mmol/L Normal 3.4-5.0 [facility] Comment on above: Performed By: #### C MP #### [facility] [address] [id number] Ghulam Amy Protein [Mass/Vol] 7.3 g/dL Normal 6.1-8.2 [facility] Comment on above: Performed By: #### C MP #### [facility] [address] [id number] Ghulam Amy Sodium [Moles/Vol] 138 mmol/L Normal 137-145 [facility] Comment on above: Performed By: #### C MP #### [facility] [address] [id number] Ghulam Amy Urea nitrogen [Mass/Vol] 28.0 mg/dL Critically high 7.0-17.0 [facility] Comment on above: Performed By: #### C MP #### [facility] [address] [id number] Ghulam Amy Urea nitrogen/Creatinine [Mass ratio] 17.8 mg/mg Normal [facility] Comment on above: Performed By: #### C MP #### [facility] [address] [place], [place] [id number] Ghulam Amy Vital Signs Date Time Vital Sign Value Performing Clinician Facility 02-09-2024 13:00-0400 Body height 165.1 cm Pam RICHEY Work Phone: [facility] 02-09-2024 13:00-0400 Body mass index (BMI) [Ratio] 33.35 kg/m2 Pam Ley APRN-BARTOLO Work Phone: [facility] 02-09-2024 13:00-0400 Body temperature 98.2 [degF] Pam Ley APRN-[employer]OCERY STORE ASSOCIATE Work Phone: [facility] 02-09-2024 13:00-0400 Body weight 90.9 kg Pam Ley APRN-GROCERY STORE ASSOCIATE Work Phone: [facility] 02-09-2024 13:00-0400 Diastolic blood pressure 72 mm[Hg] Pam Ley APRN-GROCERY STORE ASSOCIATE Work Phone: [facility] 02-09-2024 13:00-0400 Heart rate 79 /min Pam Ley APRN-BARTOLO Work Phone: [facility] 02-09-2024 13:00-0400 Respiratory rate 20 /min Pam Ley APRN-BARTOLO Work Phone: [facility] 02-09-2024 13:00-0400 SaO2% (BldA) [Mass fraction] 97 % Pam Ley APRN-BARTOLO Work Phone: [facility] 02-09-2024 13:00-0400 Systolic blood pressure 134 mm[Hg] Pam Ley APRN-BARTOLO Work Phone: [facility] 12-15-2023 14:51-0500 Body height 165.1 cm Pam Ley APRN-[employer]OC[employer] STORE ASSOCIATE Work Phone: [facility] 12-15-2023 14:51-0500 Body mass index (BMI) [Ratio] 31.02 kg/m2 Pam Ley APRN-[employer]OC[employer] STORE ASSOCIATE Work Phone: [facility] 12-15-2023 14:51-0500 Body temperature 98.29 [degF] Pam Ley APRN-GROCERY STORE ASSOCIATE Work Phone: [facility] 12-15-2023 14:51-0500 Body weight 84.54 kg Pam Ley APRN-GROCERY STORE ASSOCIATE Work Phone: [facility] 12-15-2023 14:51-0500 Diastolic blood pressure 60 mm[Hg] Pam Ley APRN-GROCERY STORE ASSOCIATE Work Phone: [facility] 12-15-2023 14:51-0500 Heart rate 89 /min Pam Ley APRN-[employer]OCERY STORE ASSOCIATE Work Phone: [facility] 12-15-2023 14:51-0500 SaO2% (BldA) [Mass fraction] 94 % Pam Ley APRN-BARTOLO Work Phone: [facility] 12-15-2023 14:51-0500 Systolic blood pressure 100 mm[Hg] Pam Ley APRN-BARTOLO Work Phone: [facility] 11-25-2023 13:56-0500 Body height 165.1 cm Rambo Muñoz MD Work Phone: [facility] 11-25-2023 13:56-0500 Body mass index (BMI) [Ratio] 31.45 kg/m2 Rambo Muñoz MD Work Phone: [facility] 11-25-2023 13:56-0500 Body temperature 99 [degF] Rambo Muñoz MD Work Phone: [facility] 11-25-2023 13:56-0500 Body weight 85.73 kg Rambo Muñoz MD Work Phone: [facility] 11-25-2023 13:56-0500 Diastolic blood pressure 57 mm[Hg] Rambo Muñoz MD Work Phone: [facility] 11-25-2023 13:56-0500 Heart rate 65 /min Rambo Muñoz MD Work Phone: [facility] 11-25-2023 13:56-0500 Respiratory rate 16 /min Rambo Muñoz MD Work Phone: [facility] 11-25-2023 13:56-0500 SaO2% (BldA) [Mass fraction] 91 % Rambo uMñoz MD Work Phone: [facility] 11-25-2023 13:56-0500 Systolic blood pressure 141 mm[Hg] Rambo Muñoz MD Work Phone: [facility] 01-13-2023 07:13-0500 Body temperature 98.01 [degF] Luna Daniels MD Work Phone: [employer] 01-13-2023 07:13-0500 Diastolic blood pressure 54 mm[Hg] Luna Daniels MD Work Phone: [employer] 01-13-2023 07:13-0500 Heart rate 57 /min Luna Daniels MD Work Phone: [employer] 01-13-2023 07:13-0500 Respiratory rate 18 /min Luna Daniels MD Work Phone: [employer] 01-13-2023 07:13-0500 SaO2% (BldA) [Mass fraction] 98 % Luna Daniels MD Work Phone: [employer] 01-13-2023 07:13-0500 Systolic blood pressure 141 mm[Hg] Luna Daniels MD Work Phone: [employer] 12-11-2022 07:58-0500 Body temperature 98.8 [degF] Luna Daniels MD Work Phone: [employer] 12-11-2022 07:58-0500 Diastolic blood pressure 56 mm[Hg] Luna Daniels MD Work Phone: [employer] 12-11-2022 07:58-0500 Heart rate 85 /min Luna Daniels MD Work Phone: [employer] 12-11-2022 07:58-0500 Respiratory rate 16 /min Luna Daniels MD Work Phone: [employer] 12-11-2022 07:58-0500 SaO2% (BldA) [Mass fraction] 97 % Luna Daniels MD Work Phone: [employer] 12-11-2022 07:58-0500 Systolic blood pressure 156 mm[Hg] Luna Daniels MD Work Phone: [employer] 12-07-2022 11:44-0500 Body height 165.1 cm Luna Daniels MD Work Phone: [employer] 12-07-2022 11:44-0500 Body mass index (BMI) [Ratio] 34.61 kg/m2 Luna Daniels MD Work Phone: [employer] 12-07-2022 11:44-0500 Body weight 94.35 kg Luna Daniels MD Work Phone: [employer] 11-24-2022 11:44-0500 Body height 165.1 cm St[facility] [employer] 11-24-2022 11:44-0500 Body mass index (BMI) [Ratio] 34.95 kg/m2 Stv [facility] [employer] 11-24-2022 11:44-0500 Body temperature 98.4 [degF] Stv B [employer] 11-24-2022 11:44-0500 Body weight 95.25 kg Stv B [employer] 11-24-2022 11:44-0500 Diastolic blood pressure 45 mm[Hg] Stv B [employer] 11-24-2022 11:44-0500 Heart rate 60 /min Stv [facility] [employer] 11-24-2022 11:44-0500 Respiratory rate 15 /min Stv [facility] [employer] 11-24-2022 11:44-0500 SaO2% (BldA) [Mass fraction] 93 % Stv B [employer] 11-24-2022 11:44-0500 Systolic blood pressure 131 mm[Hg] Stv B [facility] Encounters Encounter Date Encounter Type Care Provider Facility Start: 02-18-2024 End: 02-19-2024 ambulatory RAMBO MUÑOZ [facility] Start: 02-09-2024 End: 02-10-2024 ambulatory [facility] Start: 02-09-2024 End: 02-09-2024 ambulatory [facility] Start: 02-09-2024 End: 02-09-2024 Office outpatient visit 25 minutes Pam J Av MANAGER FINE-[employer] STORE ASSOCIATE Work Phone: [facility] Comment on above: Acute cystitis witho ut hematuria (Primary Dx); Urge incontinence of urine Start: 01-10-2024 End: 01-11-2024 ambulatory SIMEON Ram [facility] Start: 01-04-2024 Refill Rambo Muñoz MD Work Phone: Stephany Carnes [facility] Comment on above: 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, unspecified estrogen receptor status ([facility]) Start: 12-15-2023 End: 12-15-2023 ambulatory [facility] Start: 12-15-2023 End: 12-15-2023 Office outpatient visit 25 minutes Pam Estrella Ley MANAGER F[employer] STORE ASSOCIATE Work Phone: [facility] Comment on above: Upper respiratory tr act infection, unspecified type (Primary Dx); Normal pressure hydrocephalus (CMS-HCC); Moderate episode of recurrent major depressive disorder ([facility]); PVD (peripheral vascular disease) ([facility]); 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); Stage 3b chronic kidney disease (CMS-HCC); Major depressive disorder in partial remission, unspecified whether recurrent ([facility]); Essential hypertension; GERD without esophagitis; 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 ([facility]) Start: 12-06-2023 Refill Pam haines MANAGER F[employer] STORE ASSOCIATE Work Phone: [facility] Comment on above: Insomnia, unspecifie d type Start: 11-25-2023 End: 11-25-2023 ambulatory RAMBO MUÑOZ [facility] Start: 11-25-2023 End: 11-25-2023 Office outpatient visit 25 minutes Rambo Muñoz MD Work Phone: [facility] - [facility] On[facility] Comment on above: 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, unspecified estrogen receptor status (CMS-HCC) (Primary Dx); 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 breast in female, estrogen receptor positive (CMS-HCC) Start: 03-23-2023 End: 03-24-2023 ambulatory [facility] Start: 01-13-2023 End: 01-16-2023 ambulatory NAMRATA BLAIR [facility] Start: 01-13-2023 End: 01-15-2023 Subsequent hospital visit by physician Luna Daniels MD Work Phone: [facility] Observation Comment on above: Arrived Severe aortic valve stenosis (Primary Dx); Type 2 diabetes mellitus with diabetic neuropathy, with long-term current use of insulin ([facility]); Tremors of nervous system; Family history of coronary arteriosclerosis; CHELSEA (obstructive sleep apnea) nonadherent with cpap; Stage 3a chronic kidney disease (HCC); Coronary artery disease involving [place] coronary artery of [place] heart without angina pectoris Aortic valve stenosi s, etiology of cardiac valve disease unspecified Start: 12-07-2022 End: 12-11-2022 ambulatory LUNA DANIELS [facility] Start: 12-07-2022 End: 12-11-2022 Subsequent hospital visit by physician Luna Daniels MD Work Phone: [facility] Stepdown Comment on above: Severe aortic valve stenosis (Primary Dx) Start: 11-24-2022 End: 11-25-2022 ambulatory FLIP JOSE ALI [facility] Start: 11-24-2022 End: 11-24-2022 Subsequent hospital visit by physician Kaylin [employer] Work[employer] Daryl CRAVEN [employer] Work[employer] Comment on above: Canceled (Case cance lled) Start: 09-28-2022 End: 09-30-2022 Evaluation and management of inpatient LUISJorge [facility] Start: 03-31-2022 End: 04-01-2022 ambulatory Vale Bowser [facility] Start: 03-26-2021 End: 03-27-2021 ambulatory ELIZABETH [facility] Start: 03-24-2021 End: 03-25-2021 ambulatory LAKESHIA [facility] Start: 03-24-2021 End: 03-24-2021 Subsequent hospital visit by physician Caden Sanchez [facility] Start: 03-19-2021 End: 03-20-2021 ambulatory PAM LYE Facility: Procedures Date Procedure Procedure Detail Performing Clinician Start: 02-09-2024 Urnls dip stick/tabl et rgnt non-auto w/o micrscp Pam Ley MANAGER F[employer] STORE ASSOCIATE Work Phone: Start: 02-09-2024 Adult depression scr eening assessment Pam Ley MANAGER F[employer] STORE ASSOCIATE Work Phone: Start: 12-15-2023 Adult depression scr eening assessment Pam Ley MANAGER F[employer] STORE ASSOCIATE Work Phone: Start: 11-25-2023 Follow-up visit Follow-up RAMBO MUÑOZ Start: 08-17-2023 Adult depression scr eening assessment Rambo Muñoz MD Work Phone: Start: 01-13-2023 Brncdilat rspse spmt ry pre&post-brncdilat admn Namrata Blair MANAGER FINE - [employer] STORE ASSOCIATE Work Phone: Start: 01-13-2023 Ct angiography chest w/contrast/noncontrast Namrata Blair APRN - [employer]ERY STORE ASSOCIATE Work Phone: Start: 12-11-2022 Glucose blood reagent strip Luna Daniels MD Work Phone: Start: 12-10-2022 Glucose blood reagent strip Luna Daniels MD Work Phone: Start: 12-10-2022 Glucose blood reagent strip Luna Daniels MD Work Phone: Start: 12-10-2022 Glucose blood reagent strip Luna Daniels MD Work Phone: Start: 12-10-2022 Basic metabolic pane l calcium total Rita Leos MANAGER FINE - [employer] STORE ASSOCIATE Work Phone: Start: 12-10-2022 Antibody screen Luna morales MD Work Phone: Start: 12-10-2022 End: 12-10-2022 Glucose blood reagent strip Luna Daniels MD Work Phone: Start: 12-09-2022 End: 12-09-2022 Blood count hemoglobin Luna Daniels MD Work Phone: Start: 12-09-2022 Glucose blood reagent strip Luna Daniels MD Work Phone: Start: 12-09-2022 End: 12-09-2022 Transfusion of packed red blood cells Radha Guerreroher MANAGER FINE - [employer] STORE ASSOCIATE Work Phone: Start: 12-09-2022 Glucose blood reagent [...] of blood/uric acid Lakeshia Farias APRN - [employer] STORE ASSOCIATE Work Phone: Plan of Treatment Date Care Activity Detail Author Start: 12-15-2024 Adult BMI Follow Up Plan Adult BMI F ollow Up Plan [facility] Start: 12-15-2024 Adult BMI Screening Adult BMI Screen ing [facility] Start: 12-15-2024 Depression Screening Depression Scre ening [facility] Start: 12-15-2024 Fall Risk Screening Fall Risk Screen ing [facility] Start: 12-15-2024 Tobacco Screening Tobacco Screening [facility] Start: 11-25-2024 Adult BMI Screening Adult BMI Screen ing [facility] Start: 09-28-2024 Tobacco Screening Tobacco Screening [facility] Start: 08-31-2024 Adult BMI Follow Up Plan Adult BMI F ollow Up Plan [facility] Start: 08-17-2024 [facility] Start: 08-10-2024 Fall Risk Screening Fall [facility] Start: 08-10-2024 Medicare Annual Well ness Visit Medicare Annual Wellness Visit [facility] Start: 03-09-2024 End: 03-09-2024 Patient encounter procedure 03/09/2024 3:15 PM EDT Office Visit Stephany Landaverde [facility] - Medical Oncology [address] [place] [address] Rambo Muñoz MD [address] [facility] [address] [place], [place] [id number] Stephany Landaverde [facility] Start: 01-13-2024 End: 01-13-2024 Patient encounter procedure 01/13/2024 1:00 PM EST Office Visit [facility] [address] [place] [id number] Pam Ley, MANAGER FINE-[employer] STORE ASSOCIATE [address] [place] [address] [facility] Start: 09-02-2023 Lipid panel Lipids [employer] Start: 02-02-2023 End: 02-02-2023 Patient encounter procedure 02/02/2023 Appointment IP Unit [facility] [employer] Start: 01-18-2023 End: 01-14-2024 Basic metabolic 2000 panel - Serum or Plasma Basic Metabolic Panel Lab STAT Severe aortic valve stenosis Expected: 01/18/2023, Expires: 01/14/2024 [employer] Phone: Comment on above: Expected: 01/18/2023 , Expires: 01/14/2024 Start: 12-17-2022 End: 12-10-2023 Basic metabolic 2000 panel - Serum or Plasma Basic Metabolic Panel Lab Routine Severe aortic valve stenosis Expected: 12/17/2022, Expires: 12/10/2023 [employer] Phone: Comment on above: Expected: 12/17/2022 , Expires: 12/10/2023 Start: 12-17-2022 End: 12-10-2023 Hemoglobin and Hematocrit Hemoglobin and Hematocrit Lab Routine Severe aortic valve stenosis Expected: 12/17/2022, Expires: 12/10/2023 [facility] Phone: Comment on above: Expected: 12/17/2022 , Expires: 12/10/2023 Start: 09-28-2022 Annual Wellness Visi t (AWV) Annual Wellness Visit (AWV) [facility] Start: 07-16-2021 Influenza vaccination Flu vacc ine (Season Ended) [facility]: Start: 04-01-2021 COVID-19 Vaccine (3 - Booster for Pfizer series) COVID-19 Vaccine (3 - Booster for Pfizer series) [facility] Start: 03-04-2021 COVID-19 Vaccine (3 - Pfizer risk series) COVID-19 Vaccine (3 - Pfizer risk series) [facility] Start: 1996 Shingles vaccine (1 of 2) Cuevas gles vaccine (1 of 2) [facility] Start: 1965 Administration of varicella zoster vaccine Zoster (Shingles) Vaccine (1 of 2) [facility] Start: 1965 DTaP,Tdap and Td Vac cines (1 - Tdap) DTaP,Tdap and Td Vaccines (1 - Tdap) [facility] Start: 1965 DTaP/Tdap/Td vaccine (1 - Tdap) DTaP/Tdap/Td vaccine (1 - Tdap) [facility] Start: 1964 Hepatitis C screening Hepatitis C sc reen [facility] Start: 1962 COVID-19 Vaccine (1) COVID-19 Vaccin e (1) [facility] Phone: Start: 1958 Depression Screen Depression Screen [facility] Start: 1946 Creatinine measurement Creatinine mo nitoring [employer] Phone: Start: 1946 Potassium monitoring Potassium monit billy [employer] Phone: End: 02-08-2025 Bacteria identified in Urine by Culture Urine culture (clean catch) Microbiology Routine Acute cystitis without hematuria 1 Occurrences starting 02/09/2024 until 02/08/2025 [employer] Phone: Comment on above: 1 Occurrences starti ng 02/09/2024 until 02/08/2025 End: 12-07-2022 Blood Bank Specimen JEAN [employer] Phone: Comment on above: Once for 1 Occurrenc es starting 12/07/2022 until 12/07/2022 End: 11-25-2024 Cancer antigen 15-3 Cancer antigen 15-3 Lab Routine 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 female breast, unspecified estrogen receptor status ([facility]) every 3 months for 50 Occurrences starting 11/25/2023 until 11/25/2024 [employer] Comment on above: every 3 months for 5 0 Occurrences starting 11/25/2023 until 11/25/2024 End: 11-25-2024 Cancer antigen 27-29 Cancer antigen 27-29 Lab Routine 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 female breast, unspecified estrogen receptor status ([facility]) every 3 months for 50 Occurrences starting 11/25/2023 until 11/25/2024 [employer] Comment on above: every 3 months for 5 0 Occurrences starting 11/25/2023 until 11/25/2024 End: 11-24-2022 Catheterization and angiography procedure details panel Cardiac Catheterization Cardiac Cath Routine One Time for 1 Occurrences starting 11/24/2022 until 11/24/2022 [employer] Phone: Comment on above: One Time for 1 Occur rences starting 11/24/2022 until 11/24/2022 End: 12-07-2022 Catheterization and angiography procedure details panel Cardiac Catheterization Cardiac Cath Routine One Time for 1 Occurrences starting 12/07/2022 until 12/07/2022 [employer] Phone: Comment on above: One Time for 1 Occur rences starting 12/07/2022 until 12/07/2022 End: 11-25-2024 CBC W Auto Differential panel - Blood CBC with auto diff Lab Routine 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 female breast, unspecified estrogen receptor status (CMS-HCC) every 3 months for 50 Occurrences starting 11/25/2023 until 11/25/2024 [employer] Phone: Comment on above: every 3 months for 5 0 Occurrences starting 11/25/2023 until 11/25/2024 End: 11-25-2024 Comprehensive metabolic 2000 panel - Serum or Plasma Comprehensive metabolic panel Lab Routine 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 female breast, unspecified estrogen receptor status (CMS-HCC) every 3 months for 50 Occurrences starting 11/25/2023 until 11/25/2024 [employer] Comment on above: every 3 months for 5 0 Occurrences starting 11/25/2023 until 11/25/2024 End: 01-13-2023 CT CARDIAC W C STC MORP CARD ONLY [employer] Phone: Comment on above: 1 Occurrences starti ng 01/13/2023 until 01/13/2023 End: 12-07-2022 EKG 12 lead EKG 12 lead ECG Routine One Time for 1 Occurrences starting 12/07/2022 until 12/07/2022 [employer] Phone: Comment on above: One Time for 1 Occur rences starting 12/07/2022 until 12/07/2022 Glucose [Mass/volume ] in Serum or Plasma POCT glucose Point of Care Testing Routine 4X Daily (AC & HS) until discontinued starting 12/07/2022 [employer] Phone: Comment on above: 4X Daily (AC & HS) u ntil discontinued starting 12/07/2022 End: 12-10-2022 Hemoglobin and Hematocrit Hemoglobin and Hematocrit Lab STAT Post Transfusion Post Transfusion Post Transfustion for 1 Occurrences starting 12/09/2022 until 12/10/2022 [facility] Phone: Comment on above: Post Transfusion Pos t Transfusion Post Transfustion for 1 Occurrences starting 12/09/2022 until 12/10/2022 Oxygen therapy [Mini mum Data Set] Initiate Oxygen Therapy Protocol Respiratory Care Routine As Needed until discontinued starting 11/24/2022 [facility] Phone: Comment on above: As Needed until disc ontinued starting 11/24/2022 Oxygen therapy [Mini mum Data Set] Initiate Oxygen Therapy Protocol Respiratory Care Routine As Needed until discontinued starting 12/07/2022 [employer] Phone: Comment on above: As Needed until disc ontinued starting 12/07/2022 Oxygen therapy [Mini mum Data Set] Initiate Oxygen Therapy Protocol Respiratory Care Routine As Needed until discontinued starting 12/07/2022 [employer] Comment on above: As Needed until disc ontinued starting 12/07/2022 End: 11-24-2022 POC CHEM8 INCLUDES CALC. ANION GAP POC CHEM8 INCLUDES CALC. ANION GAP Point of Care Testing STAT One Time for 1 Occurrences starting 11/24/2022 until 11/24/2022 [employer] Phone: Comment on above: One Time for 1 Occur rences starting 11/24/2022 until 11/24/2022 End: 12-07-2022 POC CHEM8 INCLUDES CALC. ANION GAP POC CHEM8 INCLUDES CALC. ANION GAP Point of Care Testing STAT One Time for 1 Occurrences starting 12/07/2022 until 12/07/2022 [employer] Phone: Comment on above: One Time for 1 Occur rences starting 12/07/2022 until 12/07/2022 End: 12-07-2022 PREPARE RBC (CROSSMATCH), 1 Units PREPARE RBC (CROSSMATCH), 1 Units Blood Bank STAT Once for 1 Occurrences starting 12/07/2022 until 12/07/2022 [employer] Phone: Comment on above: Once for 1 Occurrenc es starting 12/07/2022 until 12/07/2022 End: 12-08-2022 PREPARE RBC (CROSSMATCH), 1 Units PREPARE RBC (CROSSMATCH), 1 Units Blood Bank Routine Once for 1 Occurrences starting 12/08/2022 until 12/08/2022 [employer] Work Phone: Comment on above: Once for 1 Occurrenc es starting 12/08/2022 until 12/08/2022 End: 12-09-2022 PREPARE RBC (CROSSMATCH), 1 Units PREPARE RBC (CROSSMATCH), 1 Units Blood Bank Routine Once for 1 Occurrences starting 12/09/2022 until 12/09/2022 [employer] Work Phone: Comment on above: Once for 1 Occurrenc es starting 12/09/2022 until 12/09/2022 End: 12-08-2022 PREVIOUS SPECIMEN [employer] Work Phone: Comment on above: Once for 1 Occurrenc es starting 12/08/2022 until 12/08/2022 Immunizations Immunization Date Immunization Notes Care Provider [facility] 08-10-2023 Influenza Vaccine, Quadrivalent, Adjuvanted Rambo Muñoz MD Work Phone: [facility] 08-06-2022 Influenza Vaccine, Quadrivalent, Adjuvanted Rambo Muñoz MD Work Phone: [facility] 08-27-2021 influenza, high dose seasonal, preservative-free Rambo Muñoz MD Work Phone: [facility] 05-28-2021 pneumococcal conjuga te vaccine, 13 valent Rambo Muñoz MD Work Phone: [facility] 02-04-2021 COVID-19, mRNA, LNP- S, PF, 30mcg/0.3mL Dose Rambo Muñoz MD Work Phone: [facility] 01-07-2021 COVID-19, mRNA, LNP- S, PF, 30mcg/0.3mL Dose Rambo Muñoz MD Work Phone: [facility] 11-25-2020 influenza, injectabl e, quadrivalent, preservative free Rambo Muñoz MD Work Phone: [facility] 08-30-2020 Influenza, High-dose , Quadrivalent Rambo Muñoz MD Work Phone: [facility] 09-14-2019 influenza, injectabl e, quadrivalent, contains preservative Rambo Muñoz MD Work Phone: [facility] 09-11-2019 influenza, injectabl e, quadrivalent, preservative free Rambo Muñoz MD Work Phone: [facility] 08-31-2018 influenza, injectabl e, quadrivalent, preservative free Rambo Muñoz MD Work Phone: [facility] 09-07-2017 influenza, injectabl e, quadrivalent, preservative free Rambo Muñoz MD Work Phone: [facility] 07-10-2015 pneumococcal polysaccharide vaccine, 23 valent Rambo Muñoz MD Work Phone: [facility] Payers Date Payer Category Payer Medicare [id number] 2022 Medicare FORMERLY [facility], [facility]1983 MEDICARE ANTH MEDICARE ADVANTAGE [id number] 2022-Present [phone] [address] [place] [address] [id number] 2022 Medicare [id number] 2022 Medicaid [facility]ICAID [facility] [id number] 2022-Present [phone] [address] [place] [address] [id number] 2017 Medicaid [id number] 2017 Unknown [id number] 1959 Medicaid [id number] 1946 Unknown [id number] 1946 Unknown [id number] 1946 Unknown [id number] 1946 Unknown [id number] 1946 Unknown [id number] [id number] 1946 Unknown [id number] [id number] 1946 Unknown [id number] [id number] 1946 Unknown [id number] [id number] 1946 Unknown [id number] [id number] 1946 Unknown [id number] [id number] 1946 Unknown [id number] [id number] 1946 Unknown [id number] [id number] 1946 Unknown [id number] [id number] 1946 Unknown [id number] [id number] 1946 Unknown [id number] [id number] 1946 Unknown [id number] Social History Date Type Detail Facility Start: 10-15-2014 End: 10-05-2022 Tobacco smoking status NHIS Never smoker [facility] [employer] Start: 10-15-2014 End: 02-09-2024 Alcohol intake Current non-drinker of alcohol (finding) [employer] Phone: Start: 10-02-2014 Alcohol Comment occaisional [employer] Phone: Start: 1945 Sex Assigned At Not on file [employer] Phone: Start: 11-14-2022 End: 12-07-2022 Exposure to SARS-CoV-2 (event) Not sure [facility] [employer] Start: 10-05-2022 Tobacco use and exposure [facility] Start: 10-05-2022 End: 02-09-2024 [facility] Start: 10-05-2022 End: 02-09-2024 Social connection and isolation panel [facility] Do you belong to any clubs or organizations such as temple groups, unions, fraternal or athletic groups, or school groups? Yes [facility] Are you now , , , , never or living with a partner? Never [facility] How often to you hav e a drink containing alcohol? Never [facility] How many standard dr inks containing alcohol do you have on a typical day? Patient does not drink [facility] Do you feel stress - tense, restless, nervous, or anxious, or unable to sleep at night because your mind is troubled all the time - these days [OSQ] Not at all [facility] Start: 03-21-2020 Gender identity Identifies as female gender (finding) [facility] Start: 10-05-2022 Sexual orientation Heterosexual (finding) [facility] Medical Equipment Procedure Code Equipment Code Equipment Origin al Text Equipment Identifier Dates Valve Aor Evolut Fx 26mm - [id number] - [id number] Start: 08-17-2023 Monitor blood wahl gars four times daily and as needed [id number] Start: 10-11-2020 USE FOUR TIMES A DAY. ICD 10 E11.29 [id number] Start: 08-31-2022 4 applicators by miscellaneous route See Admin Instructions. 4 times daily injection [id number] Start: 04-21-2021 Goals Date Patient Goal Desired [...] on stairs Contact your local community or [facility] for information on exercise, fall prevention programs, [...] were not included. [address] [facility] [address] SUBJECTIVE: Patient ID: Cuca Goodwin is a 78 y.o. female. Chief Complaint Patient presents with incontinence Accompanied by daughter today Urine is cloudy, increased incontinence. Concerns for reoccurrence of UTI. Patient was hospitalized at [facility] in September 2023 for UTI. [...] 10/17/2019 Performed by Sang Bell DO at [facility] HYSTEROSCOPY DILATION CURETTAGE MYOSURE N/A 01/29/2021 Performed by Jv Briones MD at [facility] INJECTION BLOCK EPIDURAL CAUDAL STEROID N/A 08/14/2022 Performed by Arnulfo Gonzalez MD at [facility] INJECTION BLOCK EPIDURAL CAUDAL STEROID N/A 06/06/2021 Performed by Arnulfo Gonzalez MD at [facility] INJECTION BLOCK EPIDURAL CAUDAL STEROID N/A 04/25/2021 Performed by Arnulfo Gonzalez MD at [facility] INJECTION CAUDAL EPIDURAL WITH CATHETER, STEROID N/A 05/03/2020 Performed by Arnulfo Gonzalez MD at [facility] INJECTION CAUDAL EPIDURAL WITH CATHETER, STEROID N/A 11/24/2019 Performed by Arnulfo Gonzalez MD at [facility] INJECTION CAUDAL EPIDURAL WITH CATHETER, STEROID N/A 04/21/2019 Performed by Arnulfo Gonzalez MD at [facility] NERVE BLOCK Bilateral L 4/5, 5/1 Bilateral 08/18/2019 Performed by Arnulfo Gonzalez MD at [facility] INJECTION MEDIAL BRANCH NERVE BLOCK Bilateral L 4/5, 5/1 Bilateral 06/23/2019 Performed by Arnulfo Gonzalez MD at [facility] INJECTION STEROID EPI 1 WITH SEDATION Right L 4, 5 NR Right 03/17/2019 Performed by Arnulfo Gonzalez MD at [facility] INJECTION STEROID EPI 1 WITH SEDATION: right L45 nroot Right 08/15/2018 Performed by Arnulfo Gonzalez MD at [facility] LEFT L4, AND 5 NERVE ROOT INJECTION 2 OF 2 Left 07/22/2018 Performed by Arnulfo Gonzalez MD at [facility] LEFT L4, AND L5 NERVE ROOT 1 OF 2 Left 07/04/2018 Performed by Arnulfo Gonzalez MD at [facility] PERCUTANEOUS CORONARY INTERVENTION SHUNT INSERTION TONSILLECTOMY AGE 4 Transcutaneous aortic valve replacement/Transfemoral/Kwan N/A 08/17/2023 Performed by Chava Norris MD at [facility] Valvuloplasty aortic N/A 06/03/2023 Performed by Chava Norris MD at [facility] Past Medical History: Diagnosis Date Anemia Arthritis Asthma very mild, no inhaler use Cataract Dental disease Depression Diabetes mellitus ([facility]) Diabetes mellitus type 2, controlled ([facility]) Encephalitis Foot fracture, left GERD (gastroesophageal reflux disease) Heart murmur HLD (hyperlipidemia) Hypertension Incontinence Injury of back Insulin dependent diabetes mellitus Kidney failure STAGE 4 Lumbar spondylolysis Murmur Obesity CHELSEA (obstructive sleep apnea) no machine Peptic ulceration Peripheral vascular disease ([facility]) Shortness of breath TIA (transient ischemic attack) [...] Werner 02/09/24 1420 documented in this encounter [facility] 12-15-2023 History of Present illness Narrative Images from the original note were not included. [address] [facility] [address] SUBJECTIVE: Patient ID: Cuca Goodwin [...] 10/17/2019 Performed by Sang Bell DO at [facility] HYSTEROSCOPY DILATION CURETTAGE MYOSURE N/A 01/29/2021 Performed by Jv Briones MD at [facility] INJECTION BLOCK EPIDURAL CAUDAL STEROID N/A 08/14/2022 Performed by Arnulfo Gonzalez MD at [facility] INJECTION BLOCK EPIDURAL CAUDAL STEROID N/A 06/06/2021 Performed by Arnulfo Gonzalez MD at [facility] INJECTION BLOCK EPIDURAL CAUDAL STEROID N/A 04/25/2021 Performed by Arnulfo Gonzalez MD at [facility] INJECTION CAUDAL EPIDURAL WITH CATHETER, STEROID N/A 05/03/2020 Performed by Arnulfo Gonzalez MD at [facility] INJECTION CAUDAL EPIDURAL WITH CATHETER, STEROID N/A 11/24/2019 Performed by Arnulfo Gonzalez MD at [facility] INJECTION CAUDAL EPIDURAL WITH CATHETER, STEROID N/A 04/21/2019 Performed by Arnulfo Gonzalez MD at [facility] NERVE BLOCK Bilateral L 4/5, 5/1 Bilateral 08/18/2019 Performed by Arnulfo Gonzalez MD at [facility] INJECTION MEDIAL BRANCH NERVE BLOCK Bilateral L 4/5, 5/1 Bilateral 06/23/2019 Performed by Arnulfo Gonzalez MD at [facility] INJECTION STEROID EPI 1 WITH SEDATION Right L 4, 5 NR Right 03/17/2019 Performed by Arnulfo Gonzalez MD at [facility] INJECTION STEROID EPI 1 WITH SEDATION: right L45 nroot Right 08/15/2018 Performed by Arnulfo Gonzalez MD at [facility] LEFT L4, AND 5 NERVE ROOT INJECTION 2 OF 2 Left 07/22/2018 Performed by Arnulfo Gonzalez MD at [facility] LEFT L4, AND L5 NERVE ROOT 1 OF 2 Left 07/04/2018 Performed by Arnulfo Gonzalez MD at [facility] PERCUTANEOUS CORONARY INTERVENTION SHUNT INSERTION TONSILLECTOMY AGE 4 Transcutaneous aortic valve replacement/Transfemoral/Kwan N/A 08/17/2023 Performed by Chava Norris MD at [facility] Valvuloplasty aortic N/A 06/03/2023 Performed by Chava Norris MD at [facility] Past Medical History: Diagnosis Date Anemia Arthritis Asthma very mild, no inhaler use Cataract Dental disease Depression Diabetes mellitus ([facility]) Diabetes mellitus type 2, controlled ([facility]) Encephalitis Foot fracture, left GERD (gastroesophageal reflux disease) Heart murmur HLD (hyperlipidemia) Hypertension Incontinence Injury of back Insulin dependent diabetes mellitus Kidney failure STAGE 4 Lumbar spondylolysis Murmur Obesity CHELSEA (obstructive sleep apnea) no machine Peptic ulceration Peripheral vascular disease ([facility]) Shortness of breath TIA (transient ischemic attack) [...] needed (cough and congestion). Normal pressure hydrocephalus ([facility]) Moderate episode of recurrent major depressive disorder ([facility]) PVD (peripheral vascular disease) ([facility]) 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 mellitus ([facility]) - gabapentin (NEURONTIN) 300 mg capsule; Take 1 capsule (300 mg total) by mouth in the morning and 1 capsule (300 mg total) before bedtime. Stage 3b chronic kidney disease ([facility]) Major depressive disorder in partial remission, unspecified whether recurrent ([facility]) - sertraline (ZOLOFT) 100 mg tablet; [...] stage 3b chronic kidney disease and hypertension ([facility]) - SITagliptin phosphate (JANUVIA) 50 mg tablet; Take 1 tablet (50 mg total) by mouth in the morning. Type 2 DM -Managed by endocrine in [place] She believes her A1c is below 7% [...] for sore throat. Tylenol as needed per house wirer guidelines for fever or pain. Body mass [...] Werner 12/15/23 1559 documented in this encounter [facility] 11-25-2023 History of Present illness Narrative Images from the original note were not included. [facility] 11/25/23 Cuca Goodwin is a 78 y.o. year old female seen today in the oncology clinic. Chief Complaint Patient presents with Follow-up History of Present Illness: Mrs. Goodwin is a 78 y.o. female with history of aortic valve stenosis, she had PCI earlier in the year at [facility] for coronary disease. during the cardiac workup [...] mammary carcinoma, grade 2, ER strongly positive CT moderately positive and HER2 negative. There was [...] use Cataract Dental disease Depression Diabetes mellitus ([facility]) Diabetes mellitus type 2, controlled ([facility]) Encephalitis Foot fracture, left GERD (gastroesophageal reflux disease) Heart murmur HLD (hyperlipidemia) Hypertension Incontinence Injury of back Insulin dependent diabetes mellitus Kidney failure STAGE 4 Lumbar spondylolysis Murmur Obesity CHELSEA (obstructive sleep apnea) no machine Peptic ulceration Peripheral vascular disease ([facility]) Shortness of breath TIA (transient ischemic attack) Upper respiratory infection UTI (urinary tract infection) Visual impairment Wears dentures Past Surgical History: Procedure Laterality Date BREAST BIOPSY Right 03/01/2023 ULT BIOPSY CATARACT EXTRACTION SECTION SECTION 03/14/1974 EGD N/A 10/17/2019 Performed by Sang Bell DO at [facility] HYSTEROSCOPY DILATION CURETTAGE MYOSURE N/A 01/29/2021 Performed by Jv Briones MD at [facility] INJECTION BLOCK EPIDURAL CAUDAL STEROID N/A 08/14/2022 Performed by Arnulfo Gonzalez MD at [facility] INJECTION BLOCK EPIDURAL CAUDAL STEROID N/A 06/06/2021 Performed by Arunlfo Gonzalez MD at [facility] INJECTION BLOCK EPIDURAL CAUDAL STEROID N/A 04/25/2021 Performed by Arnulfo Gonzalez MD at [facility] INJECTION CAUDAL EPIDURAL WITH CATHETER, STEROID N/A 05/03/2020 Performed by Arnulfo Gonzalez MD at [facility] INJECTION CAUDAL EPIDURAL WITH CATHETER, STEROID N/A 11/24/2019 Performed by Arnulfo Gonzalez MD at [facility] INJECTION CAUDAL EPIDURAL WITH CATHETER, STEROID N/A 04/21/2019 Performed by Arnulfo Gonzalez MD at [facility] NERVE BLOCK Bilateral L 4/5, 5/1 Bilateral 08/18/2019 Performed by Arnulfo Gonzalez MD at [facility] INJECTION MEDIAL BRANCH NERVE BLOCK Bilateral L 4/5, 5/1 Bilateral 06/23/2019 Performed by Arnulfo Gonzalez MD at [facility] INJECTION STEROID EPI 1 WITH SEDATION Right L 4, 5 NR Right 03/17/2019 Performed by Arnulfo Gonzalez MD at [facility] INJECTION STEROID EPI 1 WITH SEDATION: right L45 nroot Right 08/15/2018 Performed by Arnulfo Gonzalez MD at [facility] LEFT L4, AND 5 NERVE ROOT INJECTION 2 OF 2 Left 07/22/2018 Performed by Arnulfo Gonzalez MD at [facility] LEFT L4, AND L5 NERVE ROOT 1 OF 2 Left 07/04/2018 Performed by Arnulfo Gonzalez MD at [facility] PERCUTANEOUS CORONARY INTERVENTION SHUNT INSERTION TONSILLECTOMY AGE 4 Transcutaneous aortic valve replacement/Transfemoral/Kwan N/A 08/17/2023 Performed by Chava Norris MD at [facility] Valvuloplasty aortic N/A 06/03/2023 Performed by Chava Norris MD at [facility] Family History Problem [...] min Stress: No Stress Concern Present (10/05/2022) Citizen Of [place] [facility] Occupational [facility] - Occupational Stress Questionnaire Feeling of Stress : Not at all Social Connections: Moderately Isolated (10/05/2022) Social Connection and Isolation Panel [NHANES] Frequency of Communication with Friends and Family: Never Frequency of Social Gatherings with Friends and Family: Never Attends Anglican Services: More than 4 times per year [...] nephropathy, without long-term current use of insulin ([facility]) Signed by: KAIDEN Santana Monitor blood sugars four times daily and as needed clopidogreL 75 mg tablet Refills: 0 Dose: 75 mg Commonly known as: PLAVIX COMFORT EZ PEN NEEDLES 32 gauge x 5/16 needle Quantity: 200 each Refills: 6 For diagnoses: Type 2 diabetes mellitus with stage 4 chronic kidney disease, with long-term current use of insulin ([facility]) Dose: 4 applicator Signed by: KAIDEN Santana 4 applicators, miscellaneous, See admin instructions, 4 times daily injection Generic drug: pen needle, diabetic DEXCOM G6 CHUCKER misc Refills: 0 Dose: 1 Device Generic drug: blood-glucose meter,continuous DEXCOM G6 SENSOR device Refills: 0 Generic drug: blood-glucose sensor gabapentin 300 mg capsule Quantity: 180 capsule Refills: 1 Doctor's comments: 90 Day Supply. 1 refill For diagnoses: 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 mellitus ([facility]) Dose: 300 mg Signed by: KAIDEN Santana 300 mg, oral, 2 times daily Commonly known as: NEURONTIN hydroCHLOROthiazide 25 mg tablet Refills: 0 Dose: 25 mg Commonly known as: HYDRODIURIL insulin lispro 100 unit/mL insulin pen Refills: 0 For diagnoses: Mixed diabetic hyperlipidemia associated with type 2 diabetes mellitus ([facility]) Dose: 2 Units Signed by: RONNA Solis [...] nephropathy, without long-term current use of insulin ([facility]) Signed by: KAIDEN Santana Monitor blood sugars four times daily and as needed Commonly known as: onetouch ultrasoft * ONETOUCH DELICA PLUS LANCET 33 gauge misc Refills: 0 Generic drug: lancets letrozole 2.5 mg chemo tablet Quantity: 90 tablet Refills: 3 For diagnoses: 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 female breast, unspecified estrogen receptor status ([facility]) Dose: 2.5 mg Signed by: Dr. Rambo Muñoz MD 2.5 mg, oral, Daily Commonly known as: FEMARA LEVEMIR FLEXPEN 100 unit/mL (3 mL) insulin pen Quantity: 30 mL Refills: 3 For diagnoses: Controlled type 2 diabetes mellitus with diabetic nephropathy, without long-term current use of insulin ([facility]) Signed by: KAIDEN Santana INJECT 30 UNITS UNDER THE SKIN NIGHTLY Generic drug: insulin detemir U-100 metoprolol succinate XL 25 mg 24 hr tablet Quantity: 90 tablet Refills: 2 For diagnoses: Essential hypertension, Athscl heart disease of [place] coronary artery w/o ang pctrs Dose: 25 [...] disorder in partial remission, unspecified whether recurrent ([facility]) Dose: 100 mg Signed by: Pam Ley, MANAGER FINE-GROCERY STORE ASSOCIATE 100 mg, oral, Daily Commonly known as: ZOLOFT SITagliptin phosphate 50 mg tablet Quantity: 90 tablet Refills: 1 For diagnoses: Diabetes mellitus type 2, insulin dependent ([facility]), 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 ([facility]) Dose: 50 mg Signed by: LISA SantanaGROCERY STORE ASSOCIATE 50 mg, oral, Daily Commonly known as: JANUVJF traZODone 100 mg tablet Quantity: 90 tablet Refills: 1 For diagnoses: Insomnia, unspecified type Signed by: LISA SantanaGROCERY STORE ASSOCIATE TAKE 1 TABLET BY MOUTH EVERY DAY [...] to ensure the accuracy of this automated rear admiral, some errors in rear admiral may have occurred. CC: Patient Care Team: KAIDEN Werner as PCP - General (Family Medicine) Simeon Quiles MD (Nephrology) KAIDEN Hsu as Nurse Practitioner (Pulmonary Medicine) Madison Ye MD as Referring Physician (Endocrinology, Diabetes & Metabolism) Rambo Muñoz MD as Consulting Physician (Hematology) PCP:Pam Ley Referring MD: Pam Ley AP* documented in this encounter [facility] 11-25-2023 Instructions Rambo Muñoz MD - 11/25/2023 2:30 PM EST Pet SCAN 02/2024. F/u in late 02/2024 to review results. Continue femara alone. Labs before appt: CBC, CMP, CA 15-3, CA 27.29. documented in this encounter [facility] 03-23-2023 Note SUBJECTIVE: Chief complaint: RADAR SYSTEMS ENGINEER shunt adjustment status post 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 History of present illness: Return visit for NPH status post RADAR SYSTEMS ENGINEER shunt. Had MRI thoracic and lumbar spine done at [facility] last week due to concern for spinal [...] Medications: acetaminophen amLODIPine aspirin atorvastatin blood-glucose meter [facility] cefuroxime cholecalciferol (vitamin D3) clopidogrel Dexcom G6 Sensor device ferrous sulfate FreeStyle Katrik 14 Day [employer] [facility] FreeStyle Kartik 14 Day Sensor kit furosemide gabapentin hydroCHLOROthiazide insulin lispro lancets [facility] letrozole Levemir FlexPen insulin pen melatonin capsule metoprolol succinate XL metoprolol tartrate miscellaneous medical supply [facility] mupirocin ONETOUCH ULTRA BLUE TEST STRIP [facility] [place] OneTouch Ultra Test strip oxybutynin oxybutynin XL [...] sugar diagnostic (ONETOUCH ULTRA BLUE TEST STRIP [facility] [place] [facility] [place] OneTouch Ultra Blue Test Strip, Disp: , [...] FreeStyle Kartik reader (FreeStyle Kartik 14 Day Crucible) misc, FreeStyle Kartik 14 Day Crucible, Disp: , Rfl: FreeStyle Kartik sensor system [...] (U-100) Insulin 10 (more content not included)... [facility] 12-11-2022 History of Present illness Narrative Patient discharged home. Discharge instructions were explained and given to the patient, patient verbalized understanding. All belongings were sent with the patient. No signs of acute distress noted, no concerns voiced. Physical Therapy Facility/Department: [address] [place] Physical Therapy Name: Cuca Goodwin [...] 25 Sasha Maldonado, PT Physical Therapy Facility/Department: [address] [place] Daily Treatment Note NAME: Cuca [...] from the original note were not included. [place] [facility] Progress Note Date: 12/09/2022 Patient name: Cuca [...] 182 cm. Number of passes: 1. [place] 2.5 x 12 CÉSAR. 1 inflation(s) to [...] stable. Plans for TAVR work-up as OP [place] [facility] Psychiat[facility]. [phone] Physical Therapy Facility/Department: [address] [place] Physical Therapy Initial Assessment Name: [...] pt repositioned in bed for comfort upon technical writer and editor's exit. Subjective Subjective: RN and pt in [...] rollator at baseline) Transfer Assistance: Independent Active Warper Tender: No Mode of Transportation: Friends, Cab Occupation: [...] from the original note were not included. [place] [facility] Psych[facility] Progress Note Date: 12/08/2022 Patient name: Cuca [...] 182 cm. Number of passes: 1. [place] 2.5 x 12 CÉSAR. 1 inflation(s) to [...] stable Plans for TAVR work-up as OP [place] [facility]. [phone] Physical Medicine Teacher discussed the next step in the TAVR process, an appointment with the cardiothoracic surgeon, with patient and daughter at bedside in [facility]. Office number given to daughter, she will call to schedule in the next couple days. Physical Medicine Teacher's contact number also given. Patient declined AM [...] to Joelle PIERRE. Patient transported to room [facility] via stretcher. Right groin assessed by Joelle [...] Manual pressure held Manual pressure held per technical writer and editor for [address] Martinez at bedside to assess. Order for POC H & H received. Hemaglobin 6.9. Stat lab draw ordered. Dr Martinez at bedside to assess. Order for LLE vascualr scan received. 1 Patient admitted, consent signed and questions answered. Patient ready for procedure. Call light to reach with side rails up 2 of 2. Bilateral groin areas clipped with technical writer and editor and Maggi estrada present. Daughter Ismael at bedside with patient. History and physical needs updated. Received post cardiac cath procedure to [facility] room 10. Assessment obtained. Restrictions reviewed with patient. Post procedure pathway initiated. Right site noted to have small hematoma, manual pressure held by [place]. Band aid dry and intact. Family at side. Patient without complaints. Head of bed flat with right leg straight. documented in this encounter [facility] [employer] [facility] [employer] Work Phone: 12-07-2022 Note [facility] Vascular Lower Extremities Arterial Duplex Procedure Patient Name CHRISTA Date of Study 12/07/2022 [facility] Date of 1945 Gender Female Age 77 year(s) Race Room Number 0501 Height: 65 inch, 165.1 cm Corporate ID # [id number] Weight: 208 pounds, 94.3 kg Patient BSA: 2.01 m^2 BMI: 34.61 kg/m^2 MR # [id number] Jtac Whit Gan RVT Interpreting Physician Darnell Monique [...] ! ! +---------++-----+-----+------+--- -+------++---+-----+------+----+-- -------+ [facility] 11-24-2022 History of Present illness Narrative Patient admitted, consent signed and questions answered. Patient ready for procedure. Call light to reach with side rails up 2 of 2. Bilateral groin areas clipped with technical writer and editor and Jose PIERRE present. Daughter Ileana at bedside with patient. History and physical needs updated. documented in this encounter [employer] Phone: 03-20-2021 Note PROCEDURE: XR FOOT L T MIN 3 VIEWS COMPARISON: None. HISTORY: Pain FINDINGS: BONES:No acute fracture or dislocation. Persistent flexion of the toes limits their evaluation. Mild to moderate degenerative changes with joint space narrowing and marginal osteophyte formation, most significant at the first metatarsophalangeal joint where [id number] endplate is observed SOFT TISSUES:Negative. No visible soft tissue swelling. EFFUSION:None visible. OTHER: Negative. IMPRESSION: Moderate degenerative changes, no acute fracture Electronically authenticated by: GIOVANNY NICOLE Date: 2021-03-20 08:29 [facility] Evaluation note Diagnosis Severe aortic valve stenosis- Primary Aortic valve disorders documented in this encounter [employer] Phone: evalusnfog note* Diagnosis RAIN (acute kidney injury) (HCC)- Primary Acute kidney failure, unspecified documented in this encounter [employer] Phone: evalrzirog note* Diagnosis Severe aortic valve stenosis- Primary [...] kidney disease (HCC) Coronary artery disease involving [place] coronary artery of [place] heart without angina pectoris documented in this encounter [employer] Phone: evallvurvc note* Diagnosis Aortic valve stenosis, etiology of cardiac valve disease unspecified documented in this encounter [employer] Phone: evaluation note* Diagnosis Aortic valve stenosis, etiology of cardiac valve disease unspecified documented in this encounter JEAN [place] Phone: evaluation note* Diagnosis 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 female breast, unspecified estrogen receptor status ([facility])- Primary documented in this encounter [facility]* Diagnosis Insomnia, unspecified type documented in this encounter [facility]* Diagnosis Upper respiratory tract infection, unspecified type- Primary Normal pressure hydrocephalus ([facility]) 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 ([facility]) PVD (peripheral vascular disease) ([facility]) Unspecified peripheral vascular disease 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 mellitus ([facility]) Stage 3b chronic kidney disease ([facility]) Major depressive disorder in partial remission, unspecified whether recurrent ([facility]) Essential hypertension Unspecified essential hypertension GERD without esophagitis Esophageal reflux 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 ([facility]) documented in this encounter [facility]* Diagnosis 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 female breast, unspecified estrogen receptor status ([facility]) documented in this encounter [facility]* Diagnosis Acute cystitis without hematuria- Primary Urge incontinence of urine Urge incontinence [facility]* Attachments The following attachments cannot be sent through Care Everywhere. * PCI (Percutaneous Coronary Intervention): Post-op ([place]) [facility] [place] Phone: InstructionsNot on filedocumented in this encounter [facility] SystemInstructions* Attachments The following attachments cannot be sent through Care Everywhere. * Bacterial Upper Respiratory Infection, Adult ([place]ian) [facility] System[facility]Not on file [facility] SystemInst[facility]* Attachments The following attachments cannot be sent through Care Everywhere. * Urinary Tract Infection Discharge Instructions, Adult ([place]ian) [facility] Advance Directives No Advanced Directives Records FoundDocuments on File Type Date Recorded Patient [place] Attendant Expl anation ACP-Advance Directive ACP-Power of Fee Clerk Latest Code Status on File Code Status [...] Documents on File Type Date Recorded Patient [place] Attendant Expl anation ACP-Advance Directive 12/14/2022 2:27 PM Latest Code Status on File Code Status Date Activated Date Inactivated Comments Full Code 12/07/2022 11:24 AM 12/11/2022 1:10 PM Full Code 11/24/2022 11:19 AM 11/25/2022 2:46 AM Full Code 09/28/2022 4:15 AM 09/30/2022 6:37 PM Full Code 10/15/2014 1:49 PM 10/15/2014 8:39 PM Documents on File Type Date Recorded Patient [place] Attendant Expl anation ACP-Advance Directive 12/14/2022 2:27 PM Latest Code Status on File Code Status Date Activated Date Inactivated Comments Full Code 12/07/2022 11:24 AM 12/11/2022 1:10 PM Documents on File Type Date Recorded Patient [place] Attendant Expl anation Durable Power of Fee Clerk 10/21/2022 2:24 PM DNR Physician Order 10/21/2022 2:24 PM Living Will 01/30/2021 12:07 PM Durable Power of Fee Clerk 01/30/2021 12:07 PM Living Will 01/29/2021 6:19 AM Advance Directive 01/29/2021 6:18 AM DNR Physician Order 11/03/2019 1:27 PM Latest Code Status on File Code Status Date Activated Date Inactivated Comments Full Code 03/28/2023 5:07 PM 04/01/2023 3:32 PM Code Status History Code Status Date Activated Date Inactivated Comments DNR Comfort Care Arrest (DNR-CCA) [place] 10/06/2022 8:43 AM 10/06/2022 8:41 PM Full [...] C STC MORP CARD ONLY Namrata Blair, MANAGER F[employer] [address] [place] [address] Referral ID Status Reason Start Date Expiration Date Visits Re quested Visits Authorized [id number] Closed 01/11/2023 04/10/2023 1 1 Specialty Diagnoses / Procedures Referred By Contac t Referred To Contact Radiology Diagnoses Aortic valve stenosis, etiology of cardiac valve disease unspecified Procedures CTA CHEST ABDOMEN PELVIS W CONTRAST Namrata Blair, MANAGER F[employer] [address] [place] [address] Referral ID Status Reason Start Date Expiration Date Visits Re quested Visits Authorized [id number] Closed 01/11/2023 04/10/2023 1 1 Additional Source Comments INFORMATION SOURCE (unrecogn ized section and content) DATE CREATED AUTHOR 03/27/2021 [facility] DATE CREATED AUTHOR AUTHOR'S ORGANIZ ATION 04/09/2021 [facility] DATE CREATED AUTHOR AUTHOR'S ORGANIZ ATION 04/06/2022 [facility] DATE CREATED AUTHOR AUTHOR'S ORGANIZ ATION 01/22/2023 [facility] DATE CREATED AUTHOR AUTHOR'S ORGANIZ ATION 02/07/2024 [facility] DATE CREATED AUTHOR AUTHOR'S ORGANIZ ATION 02/11/2024 [facility] DATE CREATED AUTHOR AUTHOR'S ORGANIZ ATION 02/12/2024 [facility] DATE CREATED AUTHOR AUTHOR'S ORGANIZ ATION 02/20/2024 [facility] Reason for Visit (unrecogniz ed section and content) Specialty Diagnoses / Procedures Referred By Polo t Referred To Contact [facility] [address] [place] [address] Referral ID Status Reason Start Date Expiration Date Visits Re quested Visits Authorized [id number] 1 1 Referral ID Status Reason Start Date Expiration Date Visits Re quested Visits Authorized [id number] 1 1 Specialty Diagnoses / Procedures Referred By Polo t Referred To Contact Radiology Diagnoses Aortic valve stenosis, etiology of cardiac valve disease unspecified Procedures CT CARDIAC W C STC MORP CARD ONLY Namrata Blair, MANAGER F[employer] [address] [place] [address] Referral ID Status Reason Start Date Expiration Date Visits Re quested Visits Authorized [id number] Closed 01/11/2023 04/10/2023 1 1 Specialty Diagnoses / Procedures Referred By Polo tobias Referred To Contact Radiology Diagnoses Aortic valve stenosis, etiology of cardiac valve disease unspecified Procedures CTA CHEST ABDOMEN PELVIS W CONTRAST Namrata Blair, MANAGER F[employer] [address] [place] [address] Referral ID Status Reason Start Date Expiration Date Visits Re quested Visits Authorized [id number] Closed 01/11/2023 04/10/2023 1 1 Reason Comments Follow-up Reason Onset Date Comments Med Refill 12/06/2023 Reason Comments Cough Nasal Congestion Reason Comments Med Refill Reason Comments incontinence Care Teams (unrecognized sec tion and content) Bariatric Physician Relationship Specialty Start Date End Date Caden Sanchez PCP - General Family Medicine 09/29/22 Bariatric Physician Relationship Specialty Start Date End Date Caden Sanchez PCP - General Family Medicine 09/29/22 Bariatric Physician Relationship Specialty Start Date End Date Caden Sanchez PCP - General Family Medicine 09/29/22 Bariatric Physician Relationship Specialty Start Date End Date Caden Sanchez PCP - General Family Medicine 09/29/22 Bariatric Physician Relationship Specialty Start Date End Date Caden Sanchez PCP - General Family Medicine 09/29/22 Bariatric Physician Relationship Specialty Start Date End Date Pam Ley, MANAGER FINE - [facility] [address] [place] [address] PCP - General 01/15/23 Bariatric Physician Relationship Specialty Start Date End Date Pam Ley MANAGER FINE - [facility] [address] [place] [address] PCP - General 01/15/23 Bariatric Physician Relationship Specialty Start Date End Date Pam Ley MANAGER [employer] [address] [place] [address] PCP - General Family Medicine 09/28/23 Bariatric Physician Relationship Specialty Start Date End Date Pam Ley MANAGER [employer] [address] [place] [address] PCP - General Family Medicine 09/28/23 Bariatric Physician Relationship Specialty Start Date End Date Pam Ley MANAGER [employer] [address] [place] [address] PCP - General Family Medicine 09/28/23 Bariatric Physician Relationship Specialty Start Date End Date Pam Ley MANAGER [employer] [address] [place] [address] PCP - General Family Medicine 09/28/23 Ordered [...] Villavicencio, GABBY) 1955 (Given - Provider: Libia Lyosn RN) 2099 (Due) clopidogrel (PLAVIX) tablet 75 [...] Lyons RN) 0847 (Given - Provider: Stefanie Lu RN)2100 (Due) Continuous Medication Order 12/09/2022 12/10/2022 12/11/2022 0.9 % sodium chloride infusion (CANCELED) IntraVENous, at 75 mL/hr, CONTINUOUS, Starting on Wed12/07/22 at 1145, Pre-Procedure(Cath) 0328 (New Bag - Provider: Tamika Villavicencio, GABBY)0329 (Paused - Provider: Tamika Villavicencio, RN)0329 (Restarted - Provider: Tamika Villavicencio RN)0638 [...] BE BASED ON THE PRIMARY CLINICAL RECORDS. [employer] provides no warranty or guarantee of the accuracy or completeness of information in this document.
[2024-02-27 16:19] LABS: Glucometer 46 mg/dL (74-106)
--- NOTE | 2024-02-27 16:22 | PC.NURSE ---
Pt given Oj and peanut butter crackers for low blood sugar. Pt also ordered dinner at this time
[2024-02-27 18:29] LABS: Glucometer 122 mg/dL (74-106)
[2024-02-27 20:43] LABS: Glucometer 221 mg/dL (74-106)
[2024-02-27] MEDS: ENOXAPARIN SODIUM 40 MG/0.4 ML SYRINGE SUBQ (21:58)
[2024-02-28] VITALS (11 sets, daily range): BP systolic 148–161; BP diastolic 70–90; PULSE 67–658; TEMP 36.3–36.8; O2SAT 92–95
[2024-02-28 05:44] LABS: Estimated Average Glucose 169 mg/dL; Glycohemoglobin A1C 7.5 % (4.5-6.2)
[2024-02-28 05:49] LABS: Cholesterol 206 mg/dL (<=200); HDL Cholesterol 51 mg/dL (40-60); Thyroid Stimulating Hormone 0.921 uIU/mL (0.358-3.740); Triglycerides 130 mg/dL (<=150)
[2024-02-28] MEDS: ASPIRIN 81 MG TABLET.DR PO (08:40)
[2024-02-28] MEDS: METOPROLOL SUCCINATE 25 MG TAB.ER.24H PO (08:40)
[2024-02-28] MEDS: SERTRALINE HCL 100 MG TABLET PO (08:40)
[2024-02-28] MEDS: OMEPRAZOLE 40 MG CAPSULE.DR PO (08:40)
[2024-02-28] MEDS: CLOPIDOGREL BISULFATE 75 MG TABLET PO (08:40)
[2024-02-28] MEDS: SITAGLIPTIN PHOSPHATE 50 MG TABLET PO (08:40)
[2024-02-28] MEDS: GABAPENTIN 300 MG CAPSULE PO (08:40)
--- NOTE | 2024-02-28 09:12 | CM.NOTE ---
Medicare Outpatient Observation Notice discussed with pt, pt verbalizes understanding and signs paper. Original given to pt and copy placed in pt's chart.
--- NOTE | 2024-02-28 10:31 | P.HP_ITS ---
<Statement entered by Shaikh Forrest MD - 02/28/24 15:23> This documentation has been reviewed and approved. Patient seen and examined. Case discussed with joel lobo. Agree with clinical documentation and findings except as below Same day admission and discharge: Acute ischemic stroke HTN CKD 3 HLD T2 DM Thyroid nodule Compression fracture. Patient presented with expressive and receptive aphasia, abnormal tongue sensation to [facility], well outside of TPA window. Admitted for observation for stroke work up. She was noted to have mild facial asymmetry but no other neurol ogical signs or symptoms noted on exam. Patient has HOSPITAL MEDICINE DIRECTOR shunt in place and hence MRI could not be performed - scheduled for outpatient at [facility]. Patient has no evidence of large vessel occlusion/stenosis on CTA Head/neck. Possible lacunar stroke on CTH as per Neurology. Patient stable for d/c - on ASA, Plavix. She was previously just on Plavix. Patient also started on Lipitor for HLD. Compression fracture noted on CTA Head/neck - will need work up as outpatient for osteoporosis. She will also need thyroid US for follow up on thyroid nodule noted on CT Scan Patient will need follow up with PCP in one week and Vascular neurology in 1-2 weeks HPI H&P: HPI History of Present Illness Chief complaint: CVA, Speech Abnormality Narrative: 02/28/24 0850 This is a 78-year-old female patient with a past medical history as outlined below including breast CA widely metastatic to the bone, DM2, CAD, TIA, GERD, HTN, Encephalitis s/p ventricular shunt placement, mitral stenosis s/p bioprosthetic MVR (09/2023); who presented to the ED yesterday afternoon c/o impaired balance and receptive aphasia/delayed receptive processing, and change in tongue movement. The pt was concerned that there may be a problem with her ventricular shunt. She denies focal weakness or paresthesias, denies MICHEL, fever, chills, vision changes, dysuria. Workup in the ED revealed hypertension (164/69), stable anemia (10.5), and stable CKD 3B (BUN 25, CR 1.33, GFR 39). An EKG revealed sinus rhythm with a left bundle branch block with no significant changes. A CT of the brain revealed no acute intracranial process, chronic microvascular ischemic changes, and a stable ventriculostomy catheter position and ventriculomegaly. Due to the patient's history of TIAs and concern for subtle focal deficits, she was admitted in observation to the hospitalist service yesterday afternoon for further neurologic workup. At the time of my exam this morning the patient is resting comfortably in bed. I do not note dysarthria or impaired tongue movements. The patient does not appear to have any receptive or expressive aphasia at this time. There is some clinical concern for ataxia of the left upper extremity with [id number] testing. Otherwise my neurologic exam is unremarkable. The patient reports p ersistent balance issues over the last 2 days. PT evaluation is still pending this morning. We had intended to obtain an MRI of the brain and an MRA of the head and neck this morning, however the patient's ventricular shunt is programmable and thus this study cannot be performed at this hospital as we do not have a neurologist present. We will attempt to obtain a CTA of the head and neck and a repeat CT of the head instead. Neurostroke has been consulted and their evaluation is also pending at this time. DISCHARGE 1330: [facility] Telestroke service has consulted on the pt and reviewed the imaging findings. They are suspicious of a small brainstem CVA that is too small to visualize on CT. Possible plavix resistance is also suspected. As long as 2D Echo results are unremarkable, it is ok for the pt to be discharged. [facility] Neurology will attempt to expedite the pt's outpatient MRI Brain at [facility] as soon as possible (previously scheduled for March 19). They are also ordering a P2Y12 outpatient lab to be obtained at the same time as the MRI to assess for plavix resistance. They will consider increasing the plavix dose, or changing to Brilinta pending this result. She is to follow up with them in the office once these tests are obtained. As the 2D Echo results are unremarkable, the pt is being discharged in stable condition on DAPT with aspirin and plavix. She has also been started on daily statin therapy. A follow up thyroid US is recommended to evaluate an incidental finding of thyroid nodule on CTA Neck. [facility] has been ordered at discharge for close intermediate monitoring and PT/OT rehab strengthening. Opioid HPI Opioid Management Most Recent Opioid Data: Last Pain Scale 0 10/04/23 11:15 Last Pain Intensity 2 10/01/23 09:25 Last Pain Assessment 02/28/24 13:09 Last ORT Total Score 0 02/27/24 16:01 Last ORT Risk Category Low Risk 02/27/24 16:01 Review of Systems ROS Status of ROS 10 or more systems reviewed and unremark able except as noted in history and below [facility] Medical History (Updated 02/28/24 @ 14:48 by Joelle Goncalves NP) Arthritis ?M19.90 - Unspecified osteoarthritis, unspecified site (ICD-10) Anemia ?D64.9 - Anemia, unspecified (ICD-10) Asthma ?J45.909 - Unspecified asthma, uncomplicated (ICD-10) Encephalitis ?G04.90 - Encephalitis and encephalomyelitis, unspecified (ICD-10) Metastasis to bone ?C79.51 - Secondary malignant neoplasm of bone (ICD-10) Peptic ulcer disease ?K27.9 - Peptic ulcer, site unspecified, unspecified as acute or chronic, without hemorrhage or perforation (ICD-10) TIA (transient ischemic attack) ?G45.9 - Transient cerebral ischemic attack, unspecified (ICD-10) CHELSEA (obstructive sleep apnea) ?G47.33 - Obstructive sleep apnea (adult) (pediatric) (ICD-10) PVD (peripheral vascular disease) ?I73.9 - Peripheral vascular disease, unspecified (ICD-10) Lumbar spondylosis ?M47.816 - Spondylosis without myelopathy or radiculopathy, lumbar region (ICD-10) Incontinence ?R32 - Unspecified urinary incontinence (ICD-10) CKD (chronic kidney disease) stage 3, GFR 30-59 ml/min ?N18.30 - Chronic kidney disease, stage 3 unspecified (ICD-10) Breast CA ?C50.919 - Malignant neoplasm of unspecified site of unspecified female breast (ICD-10) CAD (coronary artery disease) ?I25.10 - Atherosclerotic heart disease of [place] coronary artery without angina pectoris (ICD-10) Depression ?F32.A - Depression, unspecified (ICD-10) GERD (gastroesophageal reflux disease) ?K21.9 - Gastro-esophageal reflux disease without esophagitis (ICD-10) Hypertension ?I10 - Essential (primary) hypertension (ICD-10) Diabetes ?E11.9 - Type 2 diabetes mellitus without complications (ICD-10) Surgical History (Updated 02/28/24 @ 10:36 by Joelle Goncalves NP) S/P balloon mitral valvuloplasty ?Z98.890 - Other specified postprocedural states (ICD-10) S/P mitral valve replacement with bioprosthetic valve ?Z95.3 - Presence of xenogenic heart valve (ICD-10) Social History Within the past year, how often did you have a drink containing alcohol: never Score interpretation: A score less than 3 is consistent with normal alcohol consumption. 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 Known occupational exposures/hazards: No Highest level of school completed/degree received: high school graduate Do you want help with school or training: No Are you now , , , , never or living with a partner: never In a typical week, how many times do you talk on the telephone with family, friends, or neighbors: 3 or more times per week How often do you get together with friends or relatives: never How often do you attend faith or hinduism services: 4 or more times per year Do you belong to any clubs or organizations such as faith groups unions, [employer] or athletic groups, or school groups: no Total score: 2 Score interpretation: A score of greater than or equal to 2 indicates the lowest level of social isolation. Little interest or pleasure in doing things: not at all Feeling down, depressed, or hopeless: not at all Feel stressed/tense/nervous/anxious/difficulty sleeping: not at all Due to disability, difficulty making decisions: No Do you think of yourself as: straight/heterosexual Gender Identity: female Meds Home Medications and Allergies Home Medications ?Medication ?Instructions ?Recorded ?Confirmed ?Type clopidogrel 75 mg tablet 75 mg PO QDAY 09/30/23 02/27/24 History gabapentin 300 mg capsule 300 mg PO Q12H 09/30/23 02/27/24 History insulin detemir U-100 100 unit/mL 30 unit subcut QPM 09/30/23 02/27/24 History (3 mL) subcutaneous pen (Levemir FlexPen) letrozole 2.5 mg tablet 2.5 mg PO Q24H 09/30/23 02/27/24 History ondansetron 4 mg disintegrating 4 mg PO Q8H PRN nausea and vomiting 09/30/23 02/27/24 History tablet pantoprazole 40 mg tablet,delayed 40 mg PO QDAY 09/30/23 02/27/24 History release sertraline 100 mg tablet 100 mg PO QAM 09/30/23 02/27/24 History sitagliptin phosphate 50 mg tablet 50 mg PO QAM 09/30/23 02/27/24 History (Januvia) trazodone 100 mg tablet 100 mg PO QPM 09/30/23 02/27/24 History insulin aspart U-100 100 unit/mL 1 sliding scale dose subcut .WM 02/27/24 02/27/24 History (3 mL) subcutaneous pen metoprolol succinate 25 mg 25 mg PO DAILY 02/27/24 02/27/24 History tablet,extended release 24 hr aspirin 81 mg capsule 81 mg PO DAILY #30 caps 02/28/24 Rx atorvastatin 20 mg tablet 20 mg PO QPM #30 tabs 02/28/24 Rx Allergies Allergy/AdvReac Type Severity Reaction Status Date / Time No Known Drug Allergies Allergy Verified 09/30/23 16:22 Exam Constitutional Vital Signs, click to edit/add: Last Vital Signs Temp 97.4 F L 02/28/24 04:43 Pulse 78 02/28/24 07:58 Resp 16 02/28/24 04:43 BP 161/70 H 02/28/24 04:43 Pulse Ox 95 02/28/24 09:54 O2 Del Method Room Air 02/28/24 09:54 Common normals: no apparent distress, oriented x3, alert and well nourished General appearance: cooperative Orientation/consciousness: Yes awake [facility] Common normals: normocephalic, head/scalp atraumatic, hearing grossly normal bilaterally, external nose normal and moist oral mucous membranes Eye Common normals: PERRL, EOMs intact bilaterally, conjunctivae normal and no scleral icterus Alignment: alignment normal Eyelid: eyelids normal Neck & C-Spine Common normals: full ROM, supple and no JVD Chest Common normals: inspection of chest normal Chest: symmetrical chest wall rise Respiratory Common normals: normal respiratory effort, no retractions, no use of accessory muscles and clear to auscultation bilaterally Effort & inspection: able to speak in complete sentences Cardio Common normals: no JVD, regular rate, regular rhythm, S1 normal heart sound, S2 normal heart sound, no gallops, no clicks, no rub and peripheral pulses 2+ throughout GI Common normals: Normal to inspection, nondistended, normoactive bowel sounds present, soft to palpation, non-tender, no hepatosplenomegaly, no masses and no bruits Bladder/kidney exam: bladder normal to palpation Back & Pelvis Common normals: thoracic and lumbar spine normal to inspection Extremity Common normals: normal capillary refill and no pedal edema General: normal exam except as noted; no clubbing and no cyanosis Neuro [place] Coma Scale: GCS not evaluated Common normals: CN's II-XII intact bilaterally, moves all extremities and no sensory deficits noted Coordination/balance: [id number] test normal and Normal rapid alternating movements of the distal upper extremity present (Neuro) (Slow, but equal and normal); [id number] test abnormal (LUE pt having difficulty following instructions, accurately touching) Speech: speech normal Motor exam: strength 5/5 throughout, no pronator drift, no tremor noted and no movement abnormalities noted Psych Common normals: mental status grossly normal, thought process normal, affect normal and activity/motor behavior normal Results Labs Labs: Short CBC 02/27/24 Range/Units 13:55 WBC 6.4 (4.0-11.0) 10^3/uL Hgb 10.5 L (12.0-16.0) g/dL Hct 34.1 L (36.0-48.0) % Plt Count 261 (150-450) 10^3/uL BMP 02/27/24 13:55 Sodium 140 Potassium 4.7 Chloride 105 Carbon Dioxide 27.9 BUN 25.0 H Creatinine 1.33 H Glucose 201 H Calcium 9.5 Liver Function 02/27/24 Range/Units 13:55 Total Bilirubin 0.4 (0.2-1.0) mg/dL AST 25 (15-37) U/L ALT 14 (14-59) U/L Alkaline Phosphatase 97 (46-116) U/L Albumin 3.4 (3.4-5.0) g/dL Urine 02/27/24 Range/Units 14:04 Urine Color Yellow (YELLOW) Urine Clarity Clear (CLEAR) Urine pH 6.0 (5.0-9.0) Ur Specific [place] 1.025 (1.005-1.025) Urine Protein Negative (NEG/TRACE) mg/dL Urine Glucose (UA) >=1000 A (NEGATIVE) mg/dL Pulse Oximetry Attestation: I have reviewed the pertinent pulse oximetry results. ECG Interpretation: Sinus rhythm Left bundle branch block Abnormal ECG Compared to ECG from 09/30/2023 at 1633 No significant changes Imaging CT scan - head: Attestation: I have reviewed the pertinent imaging results. Radiologist's impression: 02/27/24 IMPRESSION: 1. No acute intracranial process identified. 2. Mild bilateral chronic microvascular ischemic change. 3. Stable ventriculostomy catheter position. Stable mild ventriculomegaly. 02/28/24 IMPRESSION: 1. No intracranial hemorrhage or acute large vessel territory infarction. 2. Unchanged right frontal approach ventricular shunt catheter tip terminates at the septum pellucidum. Ventricular system caliber is stable since 09/30/2023. CTA Head/Neck: Attestation: I have reviewed the pertinent imaging results. Radiologist's impression: IMPRESSION: 1. No large vessel arterial occlusion, high-grade narrowing, or substantial luminal irregularity in the head or neck. 2. Age-indeterminate compression fracture deformity of T1 with near total height loss. Age indeterminate compression deformity with approximately 50% height loss at T2. These are new since 2016 and correlation with point tenderness is recommended. 3. Left thyroid nodule measures 1.3 cm. Nonemergent dedicated thyroid ultrasound is recommended for further catheterization. 2D Echo: Attestation: I have reviewed the pertinent imaging results. Radiologist's impression: CONCLUSION: 1. Global left ventricular systolic function is normal; visually estimated ejection fraction is 55 to 60% 2. Normal right ventricular size and systolic function 3. Grade 2 diastolic dysfunction 4. The left atrium is mildly dilated 5. Mild tricuspid regurgitation 6. Moderately elevated right ventricular systolic pressure; RVSP 47 mmHg 7. A bioprosthetic aortic valve is seen with normal Doppler flows; no aortic regurgitation 8. Anterior free space; trivial effusion versus fat pad Assessment and Plan Assessment and Plan (1) Suspected cerebrovascular accident (CVA): Assessment and Plan: Acute * Adm observation - low threshold to make inpatient pending clinical course * Pt reported speech issue appears resolved * Possible ataxia/apraxia of LUE * CT brain in ED - unremarkable * MRI/MRA brain/neck - unable to obtain d/t presence of programmable ventricular shunt * CTA brain/neck and repeat CT brain today * 2D Echo * Lipid panel w/ mildly elevated cholesterol (206) and LDL (129), but otherwise normal findings * Consult Telestroke - we appreciate their assistance with this pt's care * Pt already on Plavix * Aspirin 325 mg x 1 given in ED, daily 81 mg aspirin initiated * Initiate Atorvastatin 20 mg daily * HTN control per Neurology recommendations to the ED provider - Home antihypertensive meds ordered plus PRN IVP Hydralazine * PT/OT/MANAGER OF DATA consults * Consider possible SNF rehab placement at discharge pending clinical course (2) CKD (chronic kidney disease) stage 3, GFR 30-59 ml/min: Assessment and Plan: Chronic * Stable at baseline * Monitor renal fx daily w/ CMP (3) Depression: Assessment and Plan: Chronic * Continue home sertraline (4) GERD (gastroesophageal reflux disease): Assessment and Plan: Chronic * Continue home PPI (5) Hypertension: Assessment and Plan: Chronic * Continue home Toprol * PRN Hydralazine IVP (6) Diabetes: Assessment and Plan: Chronic * Continue home HS Levemir and Januvia * Med dose SSI for glucose correction (Home SSI dosing is unclear/nursing attempting to clarify) * CMP daily (7) Breast CA: Assessment and Plan: Chronic * Continue home Letrozole (8) Anemia: Assessment and Plan: Chronic * Likely anemia of chronic disease (CKD3b) * Not on iron supplementation at baseline * Stable at/or improved from baseline * CBC daily (9) Abnormal finding on CT scan: Urinary Catheter Management Urinary Catheter Management Straight: Cath placed during this visit: yes Urethral indwelling: No Insertion date: 02/27/24 Insertion time: 14:18
--- NOTE | 2024-02-28 10:45 | US_ITS ---
[address] [address] Patient Name: TERESA GOODWIN MRN: [id number] date: 1945 Sex: F Assigned Patient Location: [place] Current Patient Location: [place] Accession/Order Number: [id number] Exam Date: 02/28/2024 12:09 Report Date: 02/28/2024 13:20 At the request of: SHAIKH JOI Procedure: US carotid duplex BI EXAMINATION: US carotid duplex BI HISTORY: CVA COMPARISON: No relevant comparison available. TECHNIQUE: Duplex Doppler ultrasound analysis of carotid and vertebral arteries. . Bilateral carotid arterial duplex examination was performed using B-mode, color flow and spectral analysis. Carotid stenosis is reported according to validated velocity parameters, similar to NASCET criteria. FINDINGS: RIGHT CAROTID ARTERY mild atherosclerosis Subclavian: PSV: 203.2 cm/s cm/s EDV: 0.0 cm/s cm/s CCA: Prox: PSV: 108.2 cm/s cm/s EDV: 13.6 cm/s cm/s Mid: PSV: 98.3 cm/s cm/s EDV: 9.7 cm/s cm/s Distal: PSV: 98.3 cm/s cm/s EDV: 11.6 cm/s cm/s BULB: PSV: 76.6 cm/s cm/s EDV: 13.6 cm/s cm/s ICA: Prox: PSV: 76.6 cm/s cm/s EDV: 9.6 cm/s cm/s Mid: PSV: 59.6 cm/s cm/s EDV: 9.5 cm/s cm/s Distal: PSV: 51.5 cm/s cm/s EDV: 7.9 cm/s cm/s ECA: PSV: 77.4 cm/s cm/s EDV: 3.1 cm/s cm/s VERTEBRAL: PSV: 58.0 cm/s cm/s EDV: 12.8 cm/s cm/s, antegrade ICA/CCA ratio: PSV: 0.8 EDV: 0.8 LEFT CAROTID ARTERY mild atherosclerosis, 64% stenosis in the bulb Subclavian: PSV: 214.4 cm/s cm/s EDV: 0.0 cm/s CCA: Prox: PSV: 161.4 cm/s cm/s EDV: 13.7 cm/s Mid: PSV: 125.2 cm/s cm/s EDV: 5.3 cm/s Distal: PSV: 97.3 cm/s cm/s EDV: 13.7 cm/s BULB: PSV: 100.1 cm/s cm/s EDV: 16.4 cm/s ICA: Prox: PSV: 70.9 cm/s cm/s EDV: 9.5 cm/s Mid: PSV: 77.4 cm/s cm/s EDV: 12.8 cm/s Distal: PSV: 83.8 cm/s cm/s EDV: 16.0 cm/s ECA: PSV: 143.8 cm/s cm/s EDV: 4.4 cm/s VERTEBRAL: PSV: 69.5 cm/s cm/s EDV: 9.1 cm/s, antegrade ICA/CCA ratio: PSV: 0.7 EDV: 3.0 US/US carotid duplex BI IMPRESSION: 0-49% flow stenosis bilateral internal carotid arteries Spectral Doppler US Thresholds (Reference: Jh EG, et al. Radiology 2000; 214:247-252) Stenosis (%) PSV (cm/sec) VICA/VCCA 0-49 <150 <2.5 50-69 150-225 2.5-4.0 >70 >225 >4.0 Electronically authenticated by: GIOVANNY NICOLE Date: 02/28/2024 13:20
--- NOTE | 2024-02-28 10:56 | CM.NOTE ---
Rounds made with Dr. Clayton, discussed with pt about further testing to be completed today (echo, CT, and carotid Doppler). Possible discharge to home if studies are negative. Discussed also with pt recommendations from PT for skilled therapy. Pt refuses skilled therapy and wishes for services, pt states she has used [facility] in the past and would like to go with them.
--- NOTE | 2024-02-28 11:28 | CT_ITS ---
[address] [address] Patient Name: TERESA GOODWIN MRN: [id number] date: 1945 Sex: F Assigned Patient Location: MS Current Patient Location: MS Accession/Order Number: [id number] Exam Date: 02/28/2024 11:18 Report Date: 02/28/2024 12:14 At the request of: LUCAS GARNER Procedure: CT head/brain wo con EXAM: CT head/brain wo con CLINICAL INDICATION: Suspected CVA. MRI contraindicated COMPARISON: CT head 09/30/2023. TECHNIQUE: Axial CT images of the brain were obtained without contrast. Coronal and sagittal reformats were obtained. Dose reduction techniques were achieved by using automated exposure control and/or adjustment of mA and/or kV according to patient size and/or use of iterative reconstruction technique. FINDINGS: Unchanged right frontal approach ventricular shunt catheter tip terminates at the septum pellucidum. Ventricular system caliber is stable since 09/30/2023. Shunt tubing courses along the right scalp. No intracranial hemorrhage, extra-axial fluid collection, midline shift, or acute large vessel territory infarction. No other mass effect. Patchy periventricular and subcortical hypoattenuation is likely on the basis of chronic microvascular angiopathic changes. Moderate symmetric global volume loss without lobar predominance. Unchanged commensurate enlargement of the ventricular system. Basal cisterns are patent. Similar right frontal encephalomalacia/gliosis. No calvarial fracture. Normal soft tissues. Paranasal sinuses and mastoid air cells are well-aerated. CT/CT head/brain wo con IMPRESSION: 1. No intracranial hemorrhage or acute large vessel territory infarction. 2. Unchanged right frontal approach ventricular shunt catheter tip terminates at the septum pellucidum. Ventricular system caliber is stable since 09/30/2023. Electronically authenticated by: NICK PHIPPS Date: 02/28/2024 12:14
--- NOTE | 2024-02-28 11:44 | CT_ITS ---
The [address] [address] Patient Name: TREESA GOODWIN MRN: [id number] date: 1945 Sex: F Assigned Patient Location: MS Current Patient Location: MS Accession/Order Number: [id number] Exam Date: 02/28/2024 11:18 Report Date: 02/28/2024 12:51 At the request of: SHAIKH JOI Procedure: CT angio head EXAMINATION: CT angio neck, CT angio head HISTORY: stroke symptoms COMPARISON: Noncontrast CT head 02/27/2024. CT chest 06/30/2016. TECHNIQUE: Contrast enhanced head and neck CT arteriogram was performed. Scanning performed during the arterial phase from the thoracic inlet to the [place] of [place]. 3D reconstructions were rendered on a separate 3D workstation to evaluate vascular anatomy. Dose reduction techniques were achieved by using automated exposure control and/or adjustment of mA and/or kV according to patient size and/or use of iterative reconstruction technique. Carotid stenosis was measured utilizing NASCET criteria. FINDINGS: NECK FINDINGS: No acute soft tissue abnormalities in the neck. Shunt tubing courses along the right neck. Airway is patent. Left thyroid nodule measures approximately 1.3 cm. Visualized lungs are clear. Multilevel cervicothoracic spondylotic changes. Age-indeterminate compression fracture deformity of T1 with near total height loss. Age indeterminate compression deformity with approximately 50% height loss at T2. These are new since 2016. VASCULATURE FINDINGS: Arch and Subclavian Arteries: Standard three vessel arch. Subclavian arteries are patent bilaterally. Mild scattered mixed atherosclerotic plaque without high-grade narrowing. Common Carotids: Normal bilaterally. ICAs: Patent bilaterally to the carotid terminus. Trace calcification of the left ICA origin without high-grade narrowing. MCAs: Normal bilaterally. ACAs: Normal bilaterally. P-Comms: Not visualized bilaterally. Vertebral Arteries: Patent to the confluence with the basilar artery. Mild narrowing of the left vertebral artery at the level of C5 is contributed to by uncovertebral and facet joint hypertrophy. Basilar Artery: Normal. technical intern: Normal bilaterally. Aneurysm: None. Dural venous sinuses: Patent. CT/CT angio head IMPRESSION: 1. No large vessel arterial occlusion, high-grade narrowing, or substantial luminal irregularity in the head or neck. 2. Age-indeterminate compression fracture deformity of T1 with near total height loss. Age indeterminate compression deformity with approximately 50% height loss at T2. These are new since 2016 and correlation with point tenderness is recommended. 3. Left thyroid nodule measures 1.3 cm. Nonemergent dedicated thyroid ultrasound is recommended for further catheterization. Electronically authenticated by: NICK PHIPPS Date: 02/28/2024 12:51
--- NOTE | 2024-02-28 11:44 | CT_ITS ---
The [address] [address] Patient Name: TERESA GOODWIN MRN: [id number] date: 1945 Sex: F Assigned Patient Location: [place] Current Patient Location: [place] Accession/Order Number: [id number] Exam Date: 02/28/2024 11:18 Report Date: 02/28/2024 12:51 At the request of: SHAIKH JOI Procedure: CT angio neck EXAMINATION: CT angio neck, CT angio head HISTORY: stroke symptoms COMPARISON: Noncontrast CT head 02/27/2024. CT chest 06/30/2016. TECHNIQUE: Contrast enhanced head and neck CT arteriogram was performed. Scanning performed during the arterial phase from the thoracic inlet to the walk[place] of [place]. 3D reconstructions were rendered on a separate 3D workstation to evaluate vascular anatomy. Dose reduction techniques were achieved by using automated exposure control and/or adjustment of mA and/or kV according to patient size and/or use of iterative reconstruction technique. Carotid stenosis was measured utilizing NASCET criteria. FINDINGS: NECK FINDINGS: No acute soft tissue abnormalities in the neck. Shunt tubing courses along the right neck. Airway is patent. Left thyroid nodule measures approximately 1.3 cm. Visualized lungs are clear. Multilevel cervicothoracic spondylotic changes. Age-indeterminate compression fracture deformity of T1 with near total height loss. Age indeterminate compression deformity with approximately 50% height loss at T2. These are new since 2016. VASCULATURE FINDINGS: Arch and Subclavian Arteries: Standard three vessel arch. Subclavian arteries are patent bilaterally. Mild scattered mixed atherosclerotic plaque without high-grade narrowing. Common Carotids: Normal bilaterally. ICAs: Patent bilaterally to the carotid terminus. Trace calcification of the left ICA origin without high-grade narrowing. MCAs: Normal bilaterally. ACAs: Normal bilaterally. P-Comms: Not visualized bilaterally. Vertebral Arteries: Patent to the confluence with the basilar artery. Mild narrowing of the left vertebral artery at the level of C5 is contributed to by uncovertebral and facet joint hypertrophy. Basilar Artery: Normal. dean: Normal bilaterally. Aneurysm: None. Dural venous sinuses: Patent. CT/CT angio neck IMPRESSION: 1. No large vessel arterial occlusion, high-grade narrowing, or substantial luminal irregularity in the head or neck. 2. Age-indeterminate compression fracture deformity of T1 with near total height loss. Age indeterminate compression deformity with approximately 50% height loss at T2. These are new since 2016 and correlation with point tenderness is recommended. 3. Left thyroid nodule measures 1.3 cm. Nonemergent dedicated thyroid ultrasound is recommended for further catheterization. Electronically authenticated by: NICK PHIPPS Date: 02/28/2024 12:51
[2024-02-28 11:45] LABS: Glucometer 212 mg/dL (74-106)
--- NOTE | 2024-02-28 11:59 | CM.NOTE ---
Faxed Clinical to [facility] for new referral, labs, diagnostic imagining, Physician notes, PT and OT notes.
--- NOTE | 2024-02-28 13:22 | CM.NOTE ---
Called [facility] to verify fax was received. Intake will locate fax and call back.
--- NOTE | 2024-02-28 13:55 | CM.NOTE ---
[facility] able to accept pt, updated RN and patient.
--- NOTE | 2024-02-28 15:00 | CM.NOTE ---
Faxed Discharge summary and med list to [facility]. Pt will discharge to home today.
--- NOTE | 2024-02-29 13:47 | CM.NOTE ---
Attempted Discharge follow up phone call without success.
--- OUTSIDE RECORDS SUMMARY | 2024-03-01 08:20 | XMS_ITS | CCD ---
Author Organization [facility] Care Team Providers Care Telecommunications Project Manager Name Role Phone Caden Sanchez Primary Care [...] Caden Sanchez Primary Care Provider Unavaildeshawn Ley ROTARY OPERATOR - BARTOLO, Pam De La Rosa Primary Care Prov ider JEREMIAH AMEER Referring Unavailable CADEN SANCHEZ Primary Care Unavailable JEREMIAH, AMEER Admitting Unavailable JEREMIAH, AMAFSHINR Attending Unavailable NAMRATA BLAIR Referring Unavailable PAM [...] MIDDLETON Attending Unavailable MARITZA MIDDLETON Admitting Unavailable Ley ROTARY OPERATOR-Pam MCFARLAND Primary Care Provid er PAM LEY Referring Unavailable PAM LEY Primary Care Unavailable RAMBO MUÑOZ Referring Unavailable PAM LEY Primary Care Unavailable RAMBO MUÑOZ Attending Unavailable PAM LEY Referring Unavailable LEYPAM NAM Primary Care Unavailable ADONIS QUILESVicki Yo Referring Unavailable PAM LEY Primary Care Unavailable OVITT, VALE Referring Unavailable OVITT, VALE Referring Unavailable OVITT, VALE Referring Unavailable OVITT, VALE Attending Unavailable PAM LEY Attending Unavailable PAM LEY Referring Unavailable LEYPAM NAM Primary Care Unavailable PAM LEY Primary Care Unavailable PAM LEY Referring Unavailable PAM LEY Primary Care Unavailable PAM LEY Attending Unavailable PAM LEY Referring Unavailable PAM LEY Primary Care Unavailable Allergies Allergy Classification Reported Allergen(s) Allergy Type Date of Onset Reaction(s) Facility (1 source) 54690,00 Drug allergy (disorder) 01-23-2020 [facility] Repository Medications Current Medications Medication Drug Class(es) [...] without long-term current use of insulin ([facility]) Monitor blood sugars four times daily and [...] the morning. 0 09/29/2022 Active DEXCOM G6 HYDROPULPER OPERATOR misc (5 sources) Start: 05-06-2023 DEXCOM G6 HYDROPULPER OPERATOR misc 1 Device by drain unit route See Admin Instructions. 0 05/06/2023 Active dextromethorphan hydrobromide 1.5 mg/ml / pyrilamine maleate 1.5 mg/ml oral solution (3 sources) Uncompetitive U-clqfdd-B-asparta te Receptor Antagonist, Sigma-1 Agonist Start: 12-15-2023 [...] 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 mellitus ([facility]) Take 1 capsule (300 mg total) by [...] without long-term current use of insulin ([facility]) INJECT 30 UNITS UNDER THE SKIN NIGHTLY [...] hyperlipidemia associated with type 2 diabetes mellitus (CMS-HCC) Inject 2 Units under the skin 4 [...] right female breast, unspecified estrogen receptor status ([facility]) TAKE 1 TABLET BY MOUTH EVERY DAY [...] 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; Translations: [[facility] CURRENT USE OF INSULIN] Onset: 1 Episodic Other aftercare (1 source) Other terminal gauger supervisor (current) drug therapy; Translations: [OTH SQUAD LEADER CURRENT 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] Onset: 1 Episodic Other [...] source) Insomnia; Translations: [Insomnia, unspecified] 12-06-2023 Episodic Residual codes; unclassified (1 source) Pain, unspecified; Translations: [Pain, unspecified] Onset: 4 Episodic Spondylosis; intervertebral disc disorders; other back [...] Test Name Value Interpretation Reference Range Facility 36on 02-28-2024 36 LVM with pt's daught er updating her on above mentioned. Normal [facility] 36 Pt's daughter Isidoro arnett called stating that pt is currently admitted to [facility] for possible stroke. Ileana stated that pt's speech was slurred and right side of face was drooping. [place] is needing Shunt make and model numbers prior to MRI. I am unable to locate. Normal [facility] PET CT SKULL TO THIGHon PET CT SKULL TO THIGH PET CT [...] Sang Acevedo MD on 02/20/2024 6:48 PM [facility] 36on 02-11-2024 36 Spoke with daughter. Daughter stated that she would like to keep CT and appt times as is. No further action needed. [facility] 36on 02-10-2024 36 Pts daughter called in requesting if Pts appt could be moved up along with her CT to 03/06/24 due to traveling. Daughter states hse has an appt here at 2:45 Please Advise. Thank You [facility] Telephoneon 02-10-2024 Telephone [id number] Jb Goodwin Y 1945 F Date Provider Department Center 02/10/2024 808-GERMAIN, PAM [facility] SURG [facility] [place] Family History Problem Relation Age of Onset Diabetes Mother Hypertension Father Coronary artery disease Father Family Status - Relation Status Age at Mother Father [facility] POCT urinalysis dipstick onl yon 02-09-2024 Appearance (U) cloudy [facility] External Poct Urine Bilirubin Negative [facility] External Poct Urine Blood Trace [facility] External Poct Urine Color yellow [facility] External Poct Urine Glucose Negative [facility] External Poct Urine Ketones Negative [facility] External Poct Urine Leukocyte Esterase 2+ [facility] External Poct Urine Nitrite Positive [facility] External Poct Urine Ph 6.5 [facility] External Poct Urine Protein Trace [facility] External Poct Urine Specific [place] 1.020 [facility] External Poct Urine Urobilinogen 0.2 [facility] URINE CULTUREon 02-09-2024 Bacteria identified Cx Nom [...] F TRIMETH/SULFAMETHOXAZOL E S <=12/03 F Susceptible [facility] Comment on above: Performed By: #### 6 30-4 #### [facility] ([id number]) [address], [address] [address] 36on 02-07-2024 36 LVM for pt of upcomi ng CT/VPSS and follow up with Vale Bowser CNP. Reminder letter sent to pt's home. Normal [facility] ALBUMINon 01-10-2024 Albumin [Mass/Vol] 4.0 g/dL Normal 3.2-5.3 [facility] Comment on above: Performed By: #### C BC, BMP, 175-7, 59374-2, 2777-1, 2731-8, 12657-6 #### [facility] ([id number]) [address], [address] [address] BASIC METABOLIC PANLon 01-10 Anion gap [Moles/Vol] 8 mmol/L Normal 5-15 [facility] Comment on above: Performed By: #### C BC, BMP, 175-7, 94603-9, 2777-1, 2731-8, 43337-6 #### [facility] ([id number]) [address], [address] [address] Calcium [Mass/Vol] 9.1 mg/dL Normal 8.5-10.5 [facility] Comment on above: Performed By: #### C BC, BMP, 1751-7, 00907-4, 2777-1, 2731-8, 83488-2 #### [facility] ([id number]) [address], [address] [address] Chloride [Moles/Vol] 101 mmol/L Normal 98-109 [facility] Comment on above: Performed By: #### Renita BC, BMP, 175-7, 87800-4, 2777-1, 2731-8, 79306-3 #### [facility] ([id number]) [address], [address] [address] CO2 [Moles/Vol] 29 mmol/L Normal 22-32 [facility] Comment on above: Performed By: #### C WILSON ALLEN, 1750-7, 98643-5, 7-1, 2731-8, 17450-6 #### [facility] ([id number]) [address], [address] [address] Creatinine [Mass/Vol] 1.46 mg/dL High 0.40-1.00 [facility] Comment on above: Result Comment: METH OD TRACEABLE TO IDMS STANDARD Performed By: #### C WILSON ALLEN, 1750-, 09976-3, 2776-1, 2730-8, 92733-3 #### [facility] ([id number]) [address], [address] [address] GFR/1.73 sq M.predicted among non-blacks MDRD (S/P/Bld) [Vol rate/Area] 37 mL/min/{1.73_m2} Low >59 [facility] Comment on above: Result Comment: Reported eGFR is based on the CKD-EPI 2020 equation that does not use a race coefficient. Performed By: #### C WILSON ALLEN, 1750-, 50359-1, 2776-1, 2730-8, 83160-3 #### [facility] ([id number]) [address], [address] [place] [address] Glucose [Mass/Vol] 300 mg/dL High 65-99 [facility] Comment on above: Performed By: #### C TIFFANY, WILSON, 1750-, 53129-1, 2776-1, 273-8, 64480-0 #### [facility] ([id number]) [address], [address] [place] [address] Potassium [Moles/Vol] 4.4 mmol/L Normal 3.5-5.0 [facility] Comment on above: Performed By: #### C BC, BMP, 1750-7, 74847-7, 2777-1, 2731-8, 98026-5 #### [facility] ([id number]) [address], [address] [address] Sodium [Moles/Vol] 138 mmol/L Normal 134-146 [facility] Comment on above: Performed By: #### C BC, BMP, 1750-7, 99416-0, 7-1, 2731-8, 85497-0 #### [facility] ([id number]) [address], [facility] [address] [address] Urea nitrogen [Mass/Vol] 26 mg/dL Normal 5-27 [facility] Comment on above: Performed By: #### C BC, BMP, 1751-05, 77829-1, 2776-1, 2730-8, 77449-1 #### [facility] ([id number]) [address], [address] [address] COMPLETE BLOOD COUNTon 01-10 Erythrocyte distribution width (RBC) [Ratio] 15.2 % High 11.5-15.0 [facility] Comment on above: Performed By: #### C BC, BMP, 1750-, 81592-8, 2776-1, 273-8, 45922-7 #### [facility] ([id number]) [address], [address] [address] Hematocrit (Bld) [Volume fraction] 31.6 % Low 35-47 [facility] Comment on above: Performed By: #### C BC, BMP, 1750-, 24537-5, 7-1, 2731-8, 51849-1 #### [facility] ([id number]) [address] [address] [address] Hemoglobin (Bld) [Mass/Vol] 10.3 g/dL Low 11.7-15.5 [facility] Comment on above: Performed By: #### C BC, BMP, 1750-, 15134-8, 2776-, 273-8, 85944-1 #### [facility] ([id number]) [address], [address] [address] MCH (RBC) [Entitic mass] 27.7 pg Normal 27-34 [facility] Comment on above: Performed By: #### C BC, BMP, 1750-, 76317-0, 2776-1, 273-8, 38885-7 #### [facility] ([id number]) [address], [address] [address] MCHC (RBC) [Mass/Vol] 32.5 g/dL Normal 32-36 [facility] Comment on above: Performed By: #### Renita ALLEN, BMP, 1751-05, 56410-7, 2776-1, 273-8, 94433-2 #### [facility] ([id number]) [address], [address] [address] MCV (RBC) [Entitic vol] 85 fL Normal 80-100 [facility] Comment on above: Performed By: #### Renita ALLEN, BMP, 1751-05, 19316-2, 2776-, 273-8, 26392-8 #### [facility] ([id number]) [address], [address] [address] Platelet mean volume (Bld) [Entitic vol] 8.5 fL Normal 7-12 [facility] Comment on above: Performed By: #### Renita BC, BMP, 1751-05, 79675-6, 2776-, 273-8, 45597-1 #### [facility] ([id number]) [address], [address] [address] Platelets (Bld) [#/Vol] 231 10*3/uL Normal 150-450 [facility] Comment on above: Performed By: #### C BC, BMP, 1750-7, 74941-8, 2777-1, 2731-8, 82103-5 #### [facility] ([id number]) [address], [address] [address] RBC COUNT 3.70 X10E12/L Low 3.80-5.20 [facility] Comment on above: Performed By: #### Renita BC, BMP, 1750-7, 69156-5, 2777-1, 2731-8, 01954-9 #### [facility] ([id number]) [address], [address] [address] WBC (Bld) [#/Vol] 4.8 10*3/uL Normal 4.0-11.0 [facility] Comment on above: Performed By: #### Renita BC, BMP, 1751-05, 96401-9, 7-1, 2731-8, 41229-4 #### [facility] ([id number]) [address], [address] [address] HGB A1C (GLYCO-HGB)on 2023 Glucose [Mass/Vol] 203 mg/dL Normal [facility] Comment on above: Performed By: #### Renita BC, BMP, 1751-05, 96141-7, 2776-1, 2731-8, 63627-4 #### [facility] ([id number]) [address], [address] [address] HbA1c (Bld) [Mass fraction] 8.7 % High 4.4-5.6 [facility] Comment on above: Result Comment: NOTE ADA Guidelines Result HgbA1c Normal : less than 5.7 % Prediabetes : 5.7 % to 6.4 % Diabetes : > 6.4 % Use with caution in patients with abnormal hemoglobin variants as the half-life of red blood cells and in vivo glycation rates are affected. Performed By: #### C TIFFANY, WILSON, 1750-7, 05691-6, 2777-1, 2731-8, 46287-6 #### [facility] ([id number]) [address], [address] [place] [address] MAGNESIUMon 01-10-2024 Magnesium [Mass/Vol] 1.9 mg/dL Normal 1.8-2.6 [facility] Comment on above: Performed By: #### Renita ALLEN, WILSON, 1750-7, 02911-0, 2777-1, 2731-8, 28992-9 #### [facility] ([id number]) [address], [address] [place] [address] PHOSPHORUSon 01-10-2024 Phosphate [Mass/Vol] 3.8 mg/dL Normal 2.4-4.9 [facility] Comment on above: Performed By: #### Renita ALLEN, WILSON, 1750-7, 09035-8, 2777-1, 2731-8, 11754-8 #### [facility] ([id number]) [address], [address] [place] [address] Parathyrin.intact [Mass/Vol] on 01-10-2024 PTH INTACT 71 pg/mL Normal 12-88 [facility] Comment on above: Performed By: #### Renita ALLEN, WILSON, 1750-7, 51054-8, 7-1, 2731-8, 75207-6 #### [facility] ([id number]) [address], [address] [place] [address] Vitamin D+Metabolites [Mass/ Vol]on 01-10-2024 VITAMIN D 25 HYD TOT 38.9 ng/mL Normal 30-100 [facility] Comment on above: Result Comment: Vitamin D status 25 [place] Vitamin D Deficiency <20 ng/mL Insufficiency 20-29 ng/mL Sufficiency 30-100 ng/mL Toxicity >100 ng/mL NOTE: A pediatric reference range has not been established by the relationship consultant of this kit. The [place] [employer] recommends a Vitamin D level of = or >20ng/mL in infants and children. Performed By: #### C BC, BMP, 1751-7, 49118-4, 2777-1, 2731-8, 77503-1 #### [facility] ([id number]) [address] [facility] [address] Follow-Upon 03-23-2023 Follow-Up [id number] Jb Goodwin Y 1945 F Date Provider Department Center 03/23/2023 VALE TAMAYO [facility] SURG Second Fl Family History Problem Relation Age of Onset Diabetes Mother Hypertension Father Coronary artery disease Father Family Status - Relation Status Age at Mother Father Level of Service:94245 [place] OFFICE/OUTPATIENT ESTABLISHED LOW [facility] 20-29 MIN Reason for Visit and Comments: Follow-up [705148] - shunt check s/p mri; Patient has been off balance. Normal [facility] CT CARDIAC W [facility] CARD ONLYon 01-18-2023 CT CARDIAC W [facility] CARD ONLY EXAMINATION: CT HEART [...] valve measurements were analyzed and provided by [employer] and are reported separately to the cardiology department. 3. Severe triple-vessel coronary artery calcifications. 4. Small sliding hiatal hernia. Interpreted by: Brennan Parra MD Signed by: Brennan Parra MD 01/18/23 Final result Normal [facility] CTA CHEST ABDOMEN PELVIS W [...] with a couple of ill-defined sclerotic foci. OUTBOARD MOTOR ASSEMBLER shunt tubing in the right neck and [...] adenopathy. Very small fat containing umbilical hernia. OUTBOARD MOTOR ASSEMBLER shunt tubing enters the abdomen in the [...] pelvis which may be related to the OUTBOARD MOTOR ASSEMBLER shunt catheter. There is a cystic left [...] for planned (more content not included)... Normal [facility] No acute abnormality identified on CTA [...] recommended. 5 mm subpleural right lung nodule. OUTBOARD MOTOR ASSEMBLER shunt noted. Small hiatal hernia. The findings [...] Findings Committee. J Am Janel Radiol 2010;7:754-[address] [facility] RIS CONSOLIDATED EXAMINATION: CTA OF THE CHEST, [...] with a couple of ill-defined sclerotic foci. OUTBOARD MOTOR ASSEMBLER shunt tubing in the right neck and [...] adenopathy. Very small fat containing umbilical hernia. OUTBOARD MOTOR ASSEMBLER shunt tubing enters the abdomen in the [...] pelvis which may be related to the OUTBOARD MOTOR ASSEMBLER shunt catheter. There is a cystic left [...] in the left flank and gluteal regions. [facility] Tato Albarran MD - 01/15/2023 EXAMINATION: CTA OF THE [...] with a couple of ill-defined sclerotic foci. OUTBOARD MOTOR ASSEMBLER shunt tubing in the right neck and anterior chest. CTA ABDOMEN: Abdominal aorta/Branches: No evidence of abdominal aortic aneurysm. Calcific plaque at the origin of the left renal artery results in at least mild stenosis. Celiac trunk, SMA, and right renal artery are patent. The MIRYEA is patent. Organs: No acute abnormality of [...] adenopathy. Very small fat containing umbilical hernia. OUTBOARD MOTOR ASSEMBLER shunt tubing enters the abdomen in the [...] pelvis which may be related to the OUTBOARD MOTOR ASSEMBLER shunt catheter. There is a cystic left [...] and gluteal regions. (more content not included)... [employer] Work Phone: CTA CHEST ABDOMEN PELVIS W C ONTRASTOrdered By: Tato Syed on 01-15-2023 [employer] Work Phone: PULMONARY FUNCTIONon 023 [address]UL[address] FUNCTION [address] [id number] PULMONARY FUNCTION PATIENT NAME: CUCA GOODWIN : 1945 MED REC NO: [id number] ROOM: ACCOUNT NO: [id number] ADMIT DATE: 01/13/2023 PROVIDER: Whit Maloney DATE [...] asthma. Clinical correlation is recommended. WHIT MALONEY MELODY/[id number] Doc#: [id number] CC: Normal [facility] Radiology Study observation (narrative) [facility] Work Phone: POC Glucose Fingerstickon Glucose [Mass/Vol] 104 mg/dL 65 - 105 mg/dL [facility] Basic Metabolic Panelon 11-16 Anion gap [Moles/Vol] 11 mmol/L 9 - 17 mmol/L [facility] Calcium [Mass/Vol] 9.0 mg/dL 8.6 - 10. 4 mg/dL [facility] Chloride [Moles/Vol] 105 mmol/L 98 - 107 mmol/L [facility] CO2 [Moles/Vol] 20 mmol/L 20 - 31 mmol/L [facility] Creatinine [Mass/Vol] 1.04 mg/dL High 0.50 - 0.90 mg/dL [facility] GFR/1.73 sq M.predicted MDRD (S/P/Bld) [Vol rate/Area] 56 mL/min/{1.73_m2} Low - PINF [facility] Comment on above: These results are [...] 131 mg/dL High 70 - 99 mg/dL [facility] Interpretation and review of laboratory results Abnormal [facility] Potassium [Moles/Vol] 4.3 mmol/L 3.7 - 5.3 mmol/L [facility] Sodium [Moles/Vol] 136 mmol/L 135 - 144 mmol/L [facility] Urea nitrogen (BldV) [Mass/Vol] 17 mg/dL 8 - 23 mg/dL [facility] Basic Metabolic Profon 12-10 Anion gap [Moles/Vol] 11 mmol/L Normal 9-17 [facility] Comment on above: Performed By: #### H H, BMPX #### [facility] [address] [place] [address] Ad Operations Coordinator: Luis Solis MD Calcium [Mass/Vol] 9.0 mg/dL Normal 8.6-10.4 [facility] Comment on above: Performed By: #### H H, BMPX #### [facility] [address] [place] [address] Ad Operations Coordinator: Luis Solis MD Chloride [Moles/Vol] 105 mmol/L Normal 98-107 [facility] Comment on above: Performed By: #### H H, BMPX #### [facility] [address] [place] [address] Ad Operations Coordinator: Luis Solis MD CO2 [Moles/Vol] 20 mmol/L Normal 20-31 [facility] Comment on above: Performed By: #### H H, BMPX #### [facility] [address] [place] [address] Ad Operations Coordinator: Luis Solis MD Creatinine [Mass/Vol] 1.04 mg/dL High 0.50-0.90 [facility] Comment on above: Performed By: #### H H, BMPX #### [facility] [address] [place] [address] Ad Operations Coordinator: Luis Solis MD GFR/1.73 sq M.predicted among non-blacks MDRD (S/P/Bld) [Vol rate/Area] 56 mL/min/{1.73_m2} Low >60 [facility] Comment on above: Result Comment: These [...] Performed By: #### H H, BMPX #### [facility] [address] [place] [address] Ad Operations Coordinator: Luis Solis MD Glucose [Mass/Vol] 131 mg/dL High 70-99 [facility] Comment on above: Performed By: #### H H, BMPX #### [facility] [address] [place] [address] Ad Operations Coordinator: Luis Solis MD Potassium [Moles/Vol] 4.3 mmol/L Normal 3.7-5.3 [facility] Comment on above: Performed By: #### H H, BMPX #### [facility] [address] [place] [address] Ad Operations Coordinator: Luis Solis MD Sodium [Moles/Vol] 136 mmol/L Normal 135-144 [facility] Comment on above: Performed By: #### H H, BMPX #### [facility] [address] [place] [address] [phone] Ad Operations Coordinator: Luis Solis MD Urea nitrogen [Mass/Vol] 17 mg/dL Normal 8-23 [facility] Comment on above: Performed By: #### H H, BMPX #### [facility] [address] [place], [place] [phone] Ad Operations Coordinator: Luis Solis MD Hemoglobin and Hematocriton 12-10-2022 Hematocrit (Bld) [Volume fraction] 25.5 % Low 36.3 - 47.1 % [facility] Hemoglobin (Bld) [Mass/Vol] 7.9 g/dL Low 11.9 - 15.1 g/dL [facility] Interpretation and review of laboratory results Abnormal [facility] Hgb/Hcton 12-10-2022 Hematocrit (Bld) [Volume fraction] 25.5 % Low 36.3-47.1 [facility] Comment on above: Performed By: #### H H, BMPX #### [facility] [address] [place] [address] [phone] Ad Operations Coordinator: Luis Solis MD Hemoglobin (Bld) [Mass/Vol] 7.9 g/dL Low 11.9-15.1 [facility] Comment on above: Performed By: #### H H, BMPX #### [facility] [address] [place] [address] [phone] Ad Operations Coordinator: Luis Solis MD Laboratory - Blood bankon Blood product type Nom (BPU) Leukocyte Reduced Red Cell [facility] No Panel Informationon 12-10 Blood Bank ISBT Product Blood Type 9500 [facility] Blood Bank Unit Type and Rh Negative [facility] Crossmatch Result COMPATIBLE [facility] Dispense Status TRANSFUSED [facility] Transfusion Status OK TO TRANSFUSE B ON [facility] Unit Divison 0 [facility] POC Glucose Fingerstickon Glucose [Mass/Vol] 105 mg/dL 65 - 105 mg/dL [facility] Glucose [Mass/Vol] 119 mg/dL High 65 - 105 mg/dL [facility] Interpretation and review of laboratory results Abnormal [facility] Glucose [Mass/Vol] 159 mg/dL High 65 - 105 mg/dL [facility] Interpretation and review of laboratory results Abnormal [facility] Glucose [Mass/Vol] 70 mg/dL 65 - 105 mg/dL [facility] Glucose [Mass/Vol] 41 mg/dL Low 65 - 105 mg/dL [facility] Comment on above: Critical Noted Interpretation and review of laboratory results Abnormal [facility] TYPE AND SCREENon 12-10-2022 ABO/Rh Negative [facility] Arm Band Number [id number] [facility] Blood Bank Blood Product Expiration Date [facility] Blood Bank Blood Product Expiration Date [facility] Blood Bank Blood Product Expiration Date [facility] Blood product unit ID (Dose) [#] [id number] [facility] Blood product unit ID (Dose) [#] [id number] [facility] Blood product unit ID (Dose) [#] [id number] [facility] Expiration Date 12/10/2022,2359 [facility] Product Code Blood Bank [id number] [facility] Product Code Blood Bank [id number] [facility] Product Code Blood Bank [id number] [facility] Unit Issue Date/Time [id number] [facility] Unit Issue Date/Time [id number] [facility] Unit Issue Date/Time [id number] [facility] Basic Metab w/rfx MGon 12-09 Anion gap [Moles/Vol] 10 mmol/L Normal 9-17 [facility] Comment on above: Performed By: #### H H, BMPX #### [facility] [address] [place] [address] Ad Operations Coordinator: Luis Solis MD Calcium [Mass/Vol] 8.6 mg/dL Normal 8.6-10.4 [facility] Comment on above: Performed By: #### H H, BMPX #### [facility] [address] [place] [address] Ad Operations Coordinator: Luis Solis MD Chloride [Moles/Vol] 106 mmol/L Normal 98-107 [facility] Comment on above: Performed By: #### H H, BMPX #### [facility] [address] [place] [address] Ad Operations Coordinator: Luis Solis MD CO2 [Moles/Vol] 21 mmol/L Normal 20-31 [facility] Comment on above: Performed By: #### H H, BMPX #### [facility] [address] [place] [address] Ad Operations Coordinator: Luis Solis MD Creatinine [Mass/Vol] 1.33 mg/dL High 0.50-0.90 [facility] Comment on above: Performed By: #### H H, BMPX #### [facility] [address] [place] [address] Ad Operations Coordinator: Luis Solis MD GFR/1.73 sq M.predicted among non-blacks MDRD (S/P/Bld) [Vol rate/Area] 41 mL/min/{1.73_m2} Low >60 [facility] Comment on above: Result Comment: Effective [...] H H, BMPX #### [facility] [address] [place] [address] Ad Operations Coordinator: Luis Solis MD Glucose [Mass/Vol] 102 mg/dL High 70-99 [facility] Comment on above: Performed By: #### H H, BMPX #### [facility] [address] [place] [address] Ad Operations Coordinator: Luis Solis MD Potassium [Moles/Vol] 4.1 mmol/L Normal 3.7-5.3 [facility] Comment on above: Performed By: #### H H, BMPX #### [facility] [address] [place] [address] Ad Operations Coordinator: Luis Solis MD Sodium [Moles/Vol] 137 mmol/L Normal 135-144 [facility] Comment on above: Performed By: #### H H, BMPX #### [facility] [address] [place] [address] Ad Operations Coordinator: Luis Solis MD Urea nitrogen [Mass/Vol] 19 mg/dL Normal 8-23 [facility] Comment on above: Performed By: #### H H, BMPX #### [facility] [address] [place] [address] Ad Operations Coordinator: Luis Solis MD Basic Metabolic Panel w/ Ref pierre to MGon 12-09-2022 Anion gap [Moles/Vol] 10 mmol/L 9 - 17 mmol/L [facility] Calcium [Mass/Vol] 8.6 mg/dL 8.6 - 10. 4 mg/dL [facility] Chloride [Moles/Vol] 106 mmol/L 98 - 107 mmol/L [facility] CO2 [Moles/Vol] 21 mmol/L 20 - 31 mmol/L [facility] Creatinine [Mass/Vol] 1.33 mg/dL High 0.50 - 0.90 mg/dL [facility] GFR/1.73 sq M.predicted MDRD (S/P/Bld) [Vol rate/Area] 41 mL/min/{1.73_m2} Low - PINF [facility] Comment on above: Effective Aug 17, [...] 102 mg/dL High 70 - 99 mg/dL [facility] Interpretation and review of laboratory results Abnormal [facility] Potassium [Moles/Vol] 4.1 mmol/L 3.7 - 5.3 mmol/L [facility] Sodium [Moles/Vol] 137 mmol/L 135 - 144 mmol/L [facility] Urea nitrogen (BldV) [Mass/Vol] 19 mg/dL 8 - 23 mg/dL [facility] Hemoglobin and Hematocriton 12-09-2022 Hematocrit (Bld) [Volume fraction] 25.6 % Low 36.3 - 47.1 % [facility] Hemoglobin (Bld) [Mass/Vol] 8.0 g/dL Low 11.9 - 15.1 g/dL [facility] Interpretation and review of laboratory results Abnormal [facility] Hematocrit (Bld) [Volume fraction] 23.5 % Low 36.3 - 47.1 % [facility] Hemoglobin (Bld) [Mass/Vol] 7.1 g/dL Low 11.9 - 15.1 g/dL [facility] Interpretation and review of laboratory results Abnormal [facility] Hgb/Hcton 12-09-2022 Hematocrit (Bld) [Volume fraction] 25.6 % Low 36.3-47.1 [facility] Comment on above: Performed By: #### H H, BMPX #### [facility] [address] [place], [place] [phone] Ad Operations Coordinator: Luis Solis MD Hemoglobin (Bld) [Mass/Vol] 8.0 g/dL Low 11.9-15.1 [facility] Comment on above: Performed By: #### H H, BMPX #### [facility] [address] [place], [place] [phone] Ad Operations Coordinator: Luis Solis MD Hematocrit (Bld) [Volume fraction] 23.5 % Low 36.3-47.1 [facility] Comment on above: Performed By: #### H H, BMPX #### [facility] [address] [place], [place] [phone] Ad Operations Coordinator: Luis Solis MD Hemoglobin (Bld) [Mass/Vol] 7.1 g/dL Low 11.9-15.1 [facility] Comment on above: Performed By: #### H H, BMPX #### [facility] [address] [place] [address] [phone] Ad Operations Coordinator: Luis Solis MD POC Glucose Fingerstickon Glucose [Mass/Vol] 143 mg/dL High 65 - 105 mg/dL [facility] Interpretation and review of laboratory results Abnormal [facility] Glucose [Mass/Vol] 96 mg/dL 65 - 105 mg/dL [facility] Glucose [Mass/Vol] 114 mg/dL High 65 - 105 mg/dL [facility] Interpretation and review of laboratory results Abnormal [facility] Glucose [Mass/Vol] 111 mg/dL High 65 - 105 mg/dL [facility] Interpretation and review of laboratory results Abnormal [facility] Type + Screenon 12-09-2022 Type + Screen Sample Expiration 12/10/2022,2359 Arm Band Number [id number] ABO/Rh(D) O NEGATIVE Antibody Screen NEGATIVE Unit Number [id number] Blood Component Type Leukocyte Reduced Red Cell Unit Division 00 Status of Unit TRANSFUSED Transfusion Status OK TO TRANSFUSE Crossmatch Result COMPATIBLE Unit Number [id number] Blood Component Type Leukocyte Reduced Red Cell Unit Division 00 Status of Unit TRANSFUSED Transfusion Status OK TO TRANSFUSE Crossmatch Result COMPATIBLE Unit Number [id number] Blood Component Type Leukocyte Reduced Red Cell Unit Division 00 Status of Unit TRANSFUSED Transfusion Status OK TO TRANSFUSE Crossmatch Result COMPATIBLE Normal [facility] Comment on above: Performed By: #### R CHITO, BMPX #### [facility] [address] [place] [address] Ad Operations Coordinator: Luis Solis MD Basic Metab w/rfx MGon 12-08 Anion gap [Moles/Vol] 9 mmol/L Normal 9-17 [facility] Comment on above: Performed By: #### R CHITO BMPX #### [facility] [address] [place] [address]641 Ad Operations Coordinator: Luis Solis MD Calcium [Mass/Vol] 8.6 mg/dL Normal 8.6-10.4 [facility] Comment on above: Performed By: #### R CHITO BMPX #### [facility] [address] [place] [address]11 Ad Operations Coordinator: Luis Solis MD Chloride [Moles/Vol] 106 mmol/L Normal 98-107 [facility] Comment on above: Performed By: #### R CHITO, BMPX #### [facility] [address] [place] [address] Ad Operations Coordinator: Luis Solis MD CO2 [Moles/Vol] 24 mmol/L Normal 20-31 [facility] Comment on above: Performed By: #### R CHITO BMPX #### [facility] [address] [place] [address]645 Ad Operations Coordinator: Luis Solis MD Creatinine [Mass/Vol] 1.33 mg/dL High 0.50-0.90 [facility] Comment on above: Performed By: #### R CHITO, BMPX #### [facility] [address] [place] [address]807 Ad Operations Coordinator: Luis Solis MD GFR/1.73 sq M.predicted among non-blacks MDRD (S/P/Bld) [Vol rate/Area] 41 mL/min/{1.73_m2} Low >60 [facility] Comment on above: Result Comment: Effective [...] Performed By: #### Jeff DALE BMPX #### [address] [address] Ad Operations Coordinator: Luis Solis MD Glucose [Mass/Vol] 160 mg/dL High 70-99 [facility] Comment on above: Performed By: #### R CHITO BMPX #### [address] [address] Ad Operations Coordinator: Luis Solis MD Potassium [Moles/Vol] 4.4 mmol/L Normal 3.7-5.3 [facility] Comment on above: Performed By: #### Jeff DALE BMPX #### [facility] [address] [place] [address] Ad Operations Coordinator: Luis Solis MD Sodium [Moles/Vol] 139 mmol/L Normal 135-144 [facility] Comment on above: Performed By: #### R CHITO, BMPX #### [facility] [address] [place] [address] Ad Operations Coordinator: Luis Solis MD Urea nitrogen [Mass/Vol] 21 mg/dL Normal 8-23 [facility] Comment on above: Performed By: #### R EJEC, BMPX #### [facility] [address] [place] [phone] Ad Operations Coordinator: Luis Solis MD Basic Metabolic Panelon 11-16 Anion gap [Moles/Vol] 7 mmol/L Low 9 - 17 mmol/L [facility] Calcium [Mass/Vol] 8.5 mg/dL Low 8.6 - 10. 4 mg/dL [facility] [employer] Chloride [Moles/Vol] 110 mmol/L High 98 - 107 mmol/L [facility] CO2 [Moles/Vol] 25 mmol/L 20 - 31 mmol/L [facility] Creatinine [Mass/Vol] 1.43 mg/dL High 0.50 - 0.90 mg/dL [facility] GFR/1.73 sq M.predicted MDRD (S/P/Bld) [Vol rate/Area] 38 mL/min/{1.73_m2} Low - PINF [facility] Comment on above: Effective Aug 17, [...] 124 mg/dL High 70 - 99 mg/dL [facility] Interpretation and review of laboratory results Abnormal [facility] Potassium [Moles/Vol] 4.7 mmol/L 3.7 - 5.3 mmol/L [facility] Sodium [Moles/Vol] 142 mmol/L 135 - 144 mmol/L [facility] [employer] Urea nitrogen (BldV) [Mass/Vol] 23 mg/dL 8 - 23 mg/dL [facility] Basic Metabolic Panel w/ Ref pierre to MGon 12-08-2022 Anion gap [Moles/Vol] 9 mmol/L 9 - 17 mmol/L [facility] Calcium [Mass/Vol] 8.6 mg/dL 8.6 - 10. 4 mg/dL [facility] Chloride [Moles/Vol] 106 mmol/L 98 - 107 mmol/L [facility] CO2 [Moles/Vol] 24 mmol/L 20 - 31 mmol/L [facility] Creatinine [Mass/Vol] 1.33 mg/dL High 0.50 - 0.90 mg/dL [facility] GFR/1.73 sq M.predicted MDRD (S/P/Bld) [Vol rate/Area] 41 mL/min/{1.73_m2} Low - PINF [facility] Comment on above: Effective Aug 17, [...] 160 mg/dL High 70 - 99 mg/dL [facility] Interpretation and review of laboratory results Abnormal [facility] Potassium [Moles/Vol] 4.4 mmol/L 3.7 - 5.3 mmol/L [facility] Sodium [Moles/Vol] 139 mmol/L 135 - 144 mmol/L [facility] Urea nitrogen (BldV) [Mass/Vol] 21 mg/dL 8 - 23 mg/dL [facility] Basic Metabolic Profon 12-08 Anion gap [Moles/Vol] 7 mmol/L Low 9-17 [facility] Comment on above: Performed By: #### B MP, CBC #### [facility] [address] [place] [address] Ad Operations Coordinator: Luis Solis MD Calcium [Mass/Vol] 8.5 mg/dL Low 8.6-10.4 [facility] Comment on above: Performed By: #### B MP, CBC #### [facility] [address] [place] [address] Ad Operations Coordinator: Luis Solis MD Chloride [Moles/Vol] 110 mmol/L High 98-107 [facility] Comment on above: Performed By: #### B MP, CBC #### [facility] [address] [place] [address] [phone] Ad Operations Coordinator: Luis Solis MD CO2 [Moles/Vol] 25 mmol/L Normal 20-31 [facility] Comment on above: Performed By: #### B MP, CBC #### [facility] [address] [place] [address] [phone] Ad Operations Coordinator: Luis Solis MD Creatinine [Mass/Vol] 1.43 mg/dL High 0.50-0.90 [facility] Comment on above: Performed By: #### B MP, CBC #### [address] [phone] Ad Operations Coordinator: Luis Solis MD GFR/1.73 sq M.predicted among non-blacks MDRD (S/P/Bld) [Vol rate/Area] 38 mL/min/{1.73_m2} Low >60 [facility] Comment on above: Result Comment: Effective [...] Performed By: #### B MP, CBC #### [facility] [address] [place] [address] [phone] Ad Operations Coordinator: Luis Solis MD Glucose [Mass/Vol] 124 mg/dL High 70-99 [facility] Comment on above: Performed By: #### B MP, CBC #### [facility] [address] [place] [address] [phone] Ad Operations Coordinator: Luis Solis MD Potassium [Moles/Vol] 4.7 mmol/L Normal 3.7-5.3 [facility] Comment on above: Performed By: #### B MP, CBC #### [facility] [address] [place] [address] Ad Operations Coordinator: Luis Solis MD Sodium [Moles/Vol] 142 mmol/L Normal 135-144 [facility] Comment on above: Performed By: #### B MP, CBC #### [facility] [address] [place] [address] Ad Operations Coordinator: Luis Solis MD Urea nitrogen [Mass/Vol] 23 mg/dL Normal 8-23 [facility] Comment on above: Performed By: #### B MP, CBC #### [facility] [address] [place] [address] Ad Operations Coordinator: Luis Solis MD CBCon 12-08-2022 Erythrocyte distribution width (RBC) [Ratio] 17.8 % High 11.8-14.4 [facility] Comment on above: Performed By: #### B FAITH, CBC #### [address] [address] Ad Operations Coordinator: Luis Solis MD Hematocrit (Bld) [Volume fraction] 22.0 % Low 36.3-47.1 [facility] Comment on above: Performed By: #### B MP, CBC #### [facility] [address] [place] [address] Ad Operations Coordinator: Luis Solis MD Hemoglobin (Bld) [Mass/Vol] 6.6 g/dL Critically low 11.9-15.1 [facility] Comment on above: Performed By: #### B MP, CBC #### [facility] [address] [place] [address] Ad Operations Coordinator: Luis Solis MD MCH (RBC) [Entitic mass] 27.5 pg Normal 25.2-33.5 [facility] Comment on above: Performed By: #### B MP, CBC #### [address] [address] Ad Operations Coordinator: Luis Solis MD MCHC (RBC) [Mass/Vol] 30.0 g/dL Normal 28.4-34.8 [facility] Comment on above: Performed By: #### B MP, CBC #### [address] [address] Ad Operations Coordinator: Luis Solis MD MCV (RBC) [Entitic vol] 91.7 fL Normal 82.6-102.9 [facility] Comment on above: Performed By: #### B MP, CBC #### [address] [address] Ad Operations Coordinator: Luis Solis MD NRBC Automated 0.0 per 100 WBC Normal 0.0 [facility] Comment on above: Performed By: #### B MP, CBC #### [address] [address] Ad Operations Coordinator: Luis Solis MD Platelet mean volume (Bld) [Entitic vol] 10.3 fL Normal 8.1-13.5 [facility] Comment on above: Performed By: #### B MP, CBC #### [address] [address] Ad Operations Coordinator: Luis Solis MD Platelets (Bld) [#/Vol] 250 10*3/uL Normal 138-453 [facility] Comment on above: Performed By: #### B MP, CBC #### [address] [address] Ad Operations Coordinator: Luis Solis MD RBC (Bld) [#/Vol] 2.40 10*6/uL Low 3.95-5.11 [facility] Comment on above: Performed By: #### B MP, CBC #### [facility] [address] [place], [place] [phone] Ad Operations Coordinator: Luis Solis MD WBC (Bld) [#/Vol] 9.2 10*3/uL Normal 3.5-11.3 [facility] Comment on above: Performed By: #### B MP, CBC #### [facility] [address] [place], [place] [phone] Ad Operations Coordinator: Luis Solis MD Hematocrit (Bld) [Volume fraction] 22.0 % Low 36.3 - 47.1 % [facility] Hemoglobin (Bld) [Mass/Vol] 6.6 g/dL Critically low 11.9 - 15.1 g/dL [facility] Interpretation and review of laboratory results Abnormal [facility] MCH (RBC) [Entitic mass] 27.5 pg 25.2 - 33.5 pg [facility] MCHC (RBC) [Mass/Vol] 30.0 g/dL 28.4 - 34.8 g/dL [facility] MCV (RBC) [Entitic vol] 91.7 fL 82.6 - 102.9 fL [facility] NRBC Automated 0.0 0.0 per 100 WBC [facility] Platelet distribution width (Bld) [Ratio] 17.8 % High 11.8 - 14.4 % [facility] Platelet mean volume (Bld) [Entitic vol] 10.3 fL 8.1 - 13.5 fL [facility] Platelets (Bld) [#/Vol] 250 10*3/uL [facility] RBC (Bld) [#/Vol] 2.40 10*6/uL Low 3.95 - 5.1 1 m/uL [facility] WBC (Bld) [#/Vol] 9.2 10*3/uL [facility] Hemoglobin and Hematocriton 12-08-2022 Hematocrit (Bld) [Volume fraction] 24.4 % Low 36.3 - 47.1 % [facility] Hemoglobin (Bld) [Mass/Vol] 7.4 g/dL Low 11.9 - 15.1 g/dL [facility] Interpretation and review of laboratory results Abnormal [facility] Hematocrit (Bld) [Volume fraction] 24.6 % Low 36.3 - 47.1 % [facility] Hemoglobin (Bld) [Mass/Vol] 7.7 g/dL Low 11.9 - 15.1 g/dL [facility] Interpretation and review of laboratory results Abnormal [facility] Hematocrit (Bld) [Volume fraction] 22.9 % Low 36.3 - 47.1 % [facility] Hemoglobin (Bld) [Mass/Vol] 7.6 g/dL Low 11.9 - 15.1 g/dL [facility] Interpretation and review of laboratory results Abnormal [facility] Hematocrit (Bld) [Volume fraction] 21.9 % Low 36.3 - 47.1 % [facility] Hemoglobin (Bld) [Mass/Vol] 6.5 g/dL Critically low 11.9 - 15.1 g/dL [facility] Interpretation and review of laboratory results Abnormal [facility] Hgb/Hcton 12-08-2022 Hematocrit (Bld) [Volume fraction] 24.4 % Low 36.3-47.1 [facility] Comment on above: Performed By: #### Jeff DALE BMPX #### [facility] [address] [place], [place] [phone] Ad Operations Coordinator: Luis Solis MD Hemoglobin (Bld) [Mass/Vol] 7.4 g/dL Low 11.9-15.1 [facility] Comment on above: Performed By: #### R CIHTO, BMPX #### [facility] [address] [place], [place] [phone] Ad Operations Coordinator: Luis Solis MD Hematocrit (Bld) [Volume fraction] 24.6 % Low 36.3-47.1 [facility] Comment on above: Performed By: #### R EJJESE, BMPX #### [facility] [address] [place] [address] Ad Operations Coordinator: Luis Solis MD Hemoglobin (Bld) [Mass/Vol] 7.7 g/dL Low 11.9-15.1 [facility] Comment on above: Performed By: #### R CHITO, BMPX #### [facility] [address] [place] [address] Ad Operations Coordinator: Luis Solis MD Hematocrit (Bld) [Volume fraction] 22.9 % Low 36.3-47.1 [facility] Comment on above: Performed By: #### R CHITO, BMPX #### [facility] [address] [place] [address] Ad Operations Coordinator: Luis Solis MD Hemoglobin (Bld) [Mass/Vol] 7.6 g/dL Low 11.9-15.1 [facility] Comment on above: Performed By: #### R CHITO, BMPX #### [facility] [address] [place] [address] Ad Operations Coordinator: Luis Solis MD Hematocrit (Bld) [Volume fraction] 21.9 % Low 36.3-47.1 [facility] Comment on above: Performed By: #### H H #### [facility] [address] [place] [address] Ad Operations Coordinator: Luis Solis MD Hemoglobin (Bld) [Mass/Vol] 6.5 g/dL Critically low 11.9-15.1 [facility] Comment on above: Performed By: #### H H #### [facility] [address] [place] [address] Ad Operations Coordinator: Luis Solis MD Hematocrit (Bld) [Volume fraction] 23.7 % Low 36.3-47.1 [facility] Comment on above: Performed By: #### R CHITO, BMPX #### [facility] [place], [place] [phone] Ad Operations Coordinator: Luis Solis MD Hemoglobin (Bld) [Mass/Vol] 7.6 g/dL Low 11.9-15.1 [facility] Comment on above: Performed By: #### R CHITO, BMPX #### [facility] [address] [place] [address] [phone] Ad Operations Coordinator: Luis Solis MD POC Glucose Fingerstickon Glucose [Mass/Vol] 129 mg/dL High 65 - 105 mg/dL [facility] Interpretation and review of laboratory results Abnormal [facility] Glucose [Mass/Vol] 138 mg/dL High 65 - 105 mg/dL [facility] Interpretation and review of laboratory results Abnormal [facility] Glucose [Mass/Vol] 164 mg/dL High 65 - 105 mg/dL [facility] Interpretation and review of laboratory results Abnormal [facility] SPECIMEN REJECTIONon 023 Ordered Test [facility] Reason for Rejection Unable to perform testing: Specimen clotted. [facility] Specimen source Nom (Unsp spec) .BLOOD [facility] Specimen Rejectionon 023 Reason for rejection Unable to perform testing: Specimen clotted. Normal [facility] [facility] Comment on above: Performed By: #### R CHITO, BMPX #### [facility] [address] [place] [address] [phone] Ad Operations Coordinator: Luis Solis MD Source of sample .BLOOD [facility] Comment on above: Performed By: #### R CHITO, BMPX #### [facility] [address] [place] [address] [phone] Ad Operations Coordinator: Luis Solis MD Test ordered [facility] Comment on above: Performed By: #### R EJEC, BMPX #### [facility] [address] [place] [address] Ad Operations Coordinator: Luis Solis MD Activated clotting timeon Activated Clotting Time 262 High [facility] Interpretation and review of laboratory results Abnormal [facility] CHLORIDE (POC)on 12-07-2022 Chloride [Moles/Vol] 107 mmol/L 98 - 107 mmol/L [facility] Catheterization and angiogra phy procedure details panelon 12-07-2022 [facility] Work Phone: Creatinine W/GFR Point of Ca reon 12-07-2022 Creatinine [Mass/Vol] 1.35 mg/dL High 0.51 - 1.19 mg/dL [facility] eGFR, POC 41 mL/min/1.73m 2 [facility] Comment on above: Effective Aug 17, [...] 23.7 % Low 36.3 - 47.1 % [facility] Hemoglobin (Bld) [Mass/Vol] 7.6 g/dL Low 11.9 - 15.1 g/dL [facility] Interpretation and review of laboratory results Abnormal [facility] Hematocrit (Bld) [Volume fraction] 24.9 % Low 36.3 - 47.1 % [facility] Hemoglobin (Bld) [Mass/Vol] 7.2 g/dL Low 11.9 - 15.1 g/dL [facility] Interpretation and review of laboratory results Abnormal [facility] Hemoglobin and hematocrit, b loodon 12-07-2022 Hematocrit (Bld) [Volume fraction] 20 % Low 36 - 46 % [facility] Hemoglobin (Bld) [Mass/Vol] 6.9 g/dL Critically low 12.0 - 16.0 g/dL [facility] Interpretation and review of laboratory results Abnormal [facility] Hematocrit (Bld) [Volume fraction] 30 % Low 36 - 46 % [facility] Hemoglobin (Bld) [Mass/Vol] 10.1 g/dL Low 12.0 - 16.0 g/dL [facility] Hgb/Hcton 12-07-2022 Hematocrit (Bld) [Volume fraction] 24.9 % Low 36.3-47.1 [facility] Comment on above: Performed By: #### Jeff DALE BMPX #### [facility] [address] [place] [address] Ad Operations Coordinator: Luis Solis MD Hemoglobin (Bld) [Mass/Vol] 7.2 g/dL Low 11.9-15.1 [facility] Comment on above: Performed By: #### R CHITO, BMPX #### [facility] [address] [place] [address] Ad Operations Coordinator: Luis Solis MD No Panel Informationon 12-07 Interpretation and review of laboratory results Abnormal [facility] POC Glucose Fingerstickon Glucose [Mass/Vol] 197 mg/dL High 65 - 105 mg/dL [facility] Interpretation and review of laboratory results Abnormal [facility] Glucose [Mass/Vol] 101 mg/dL 65 - 105 mg/dL [facility] POCT Glucoseon 12-07-2022 Glucose [Mass/Vol] 83 mg/dL 74 - 100 mg/dL [facility] POCT urea (BUN)on 12-07-2022 Urea nitrogen [Mass/Vol] 25 mg/dL 8 - 26 mg/dL [facility] POTASSIUM (POC)on 12-07-2022 Potassium [Moles/Vol] 4.2 mmol/L 3.5 - 4.5 mmol/L [facility] SODIUM (POC)on 12-07-2022 Sodium [Moles/Vol] 142 mmol/L 138 - 146 mmol/L [facility] VL DUP LOWER EXTREMITY ARTER IES RIGHTon 12-07-2022 Darnell Monique MD - 12/07/2022 [facility] Vascular Lower Extremities Arterial Duplex Procedure Patient Name CHRISTA Date of Study 12/07/2022 [facility] Date of 1945 Gender Female Age 77 year(s) Race Room Number 0501 Height: 65 inch, 165.1 cm Corporate ID # [id number] Weight: 208 pounds, 94.3 kg Patient BSA: 2.01 m^2 BMI: 34.61 kg/m^2 MR # [id number] Computer Processing Scheduler Whit Gan RVT Interpreting Physician Darnell Monique [...] ! ! +---------++-----+----- +------+----+------++-- -+-----+------+----+--- ------ + [facility] Work Phone: Radiology Study observation (narrative) [facility] Work Phone: VL DUP LOWER EXTREMITY ARTER IES RIGHTOrdered By: Darnell Burk on 12-07-2022 [facility] Work Phone: CHLORIDE (POC)on 11-24-2022 Chloride [Moles/Vol] 105 mmol/L 98 - 107 mmol/L [facility] Creatinine W/GFR Point of Ca reon 11-24-2022 Creatinine [Mass/Vol] 1.5 mg/dL High 0.51 - 1.19 mg/dL [facility] eGFR, POC 36 mL/min/1.73m 2 [facility] Comment on above: Effective Aug 17, 2022 [...] 26 % Low 36 - 46 % [facility] Hemoglobin (Bld) [Mass/Vol] 8.7 g/dL Low 12.0 - 16.0 g/dL [facility] No Panel Informationon 11-24 Interpretation and review of laboratory results Abnormal [facility] POCT Glucoseon 11-24-2022 Glucose [Mass/Vol] 135 mg/dL High 74 - 100 mg/dL [facility] POCT urea (BUN)on 11-24-2022 POC BUN Result not available. 8 - 26 mg/dL [facility] POTASSIUM (POC)on 11-24-2022 Potassium [Moles/Vol] 5.3 mmol/L High 3.5 - 4.5 mmol/L [facility] Platelet Counton 11-24-2022 Platelets (Bld) [#/Vol] 314 10*3/uL Normal 138-453 [facility] Comment on above: Performed By: #### P LT #### [facility] [place] [address] Ad Operations Coordinator: Luis Solis MD Platelets (Bld) [#/Vol] 314 10*3/uL [facility] SODIUM (POC)on 11-24-2022 Sodium [Moles/Vol] 142 mmol/L 138 - 146 mmol/L [facility] Cult,Bloodon 10-03-2022 Cult,Blood Specimen Description .BLOOD Special Requests L AC 10ML Culture NO GROWTH 5 DAYS Report Status FINAL 10/03/2022 Normal [facility] Comment on above: Performed By: #### B C #### [facility] [address] [place] [phone] Ad Operations Coordinator: Luis Solis MD Cult,Blood Specimen Description .BLOOD Special Requests R AC 10ML Culture NO GROWTH 5 DAYS Report Status FINAL 10/03/2022 Normal [facility] Comment on above: Performed By: #### H H, BMPX #### [facility] [address] [place] [address] Ad Operations Coordinator: Luis Solis MD Basic Metab w/rfx MGon 09-30 Anion gap [Moles/Vol] 9 mmol/L Normal -17 [facility] Comment on above: Performed By: #### H H, BMPX #### [facility] [address] [place] [address] Ad Operations Coordinator: Luis Solis MD Calcium [Mass/Vol] 8.8 mg/dL Normal 8.6-10.4 [facility] Comment on above: Performed By: #### H H, BMPX #### [address] [address] Ad Operations Coordinator: Luis Solis MD Chloride [Moles/Vol] 102 mmol/L Normal 98-107 [facility] Comment on above: Performed By: #### H H, BMPX #### [facility] [address] [place] [address] Ad Operations Coordinator: Luis Solis MD CO2 [Moles/Vol] 28 mmol/L Normal 20-31 [facility] Comment on above: Performed By: #### H H, BMPX #### [facility] [address] [place] [address] Ad Operations Coordinator: Luis Solis MD Creatinine [Mass/Vol] 1.28 mg/dL High 0.50-0.90 [facility] Comment on above: Performed By: #### H H, BMPX #### [facility] [address] [place] [address] Ad Operations Coordinator: Luis Solis MD GFR/1.73 sq M.predicted among non-blacks MDRD (S/P/Bld) [Vol rate/Area] 43 mL/min/{1.73_m2} Low >60 [facility] Comment on above: Result Comment: Effective [...] Performed By: #### H H, BMPX #### [facility] [address] [place] [address] Ad Operations Coordinator: Luis Solis MD Glucose [Mass/Vol] 141 mg/dL High 70-99 [facility] Comment on above: Performed By: #### H H, BMPX #### [facility] [address] [place] [address] Ad Operations Coordinator: Luis Solis MD Potassium [Moles/Vol] 4.0 mmol/L Normal 3.7-5.3 [facility] Comment on above: Performed By: #### H H, BMPX #### [facility] [address] [place] [address] Ad Operations Coordinator: Luis Solis MD Sodium [Moles/Vol] 139 mmol/L Normal 135-144 [facility] Comment on above: Performed By: #### H H, BMPX #### [facility] [address] [place] [address]702 Ad Operations Coordinator: Luis Solis MD Urea nitrogen [Mass/Vol] 18 mg/dL Normal 8-23 [facility] Comment on above: Performed By: #### H H, BMPX #### [facility] [address] [place] [address] [phone] Ad Operations Coordinator: Luis Solis MD Cult,Urineon 09-30-2022 Cult,Urine Specimen Description .URINE,STRAIGHT CATHETER Culture ESCHERICHIA COLI >[id number] CFU/ML AEROCOCCUS URINAE 50 to 100,000 CFU/ML [...] Trimethoprim/Sulfa <=20 SUSCEPTIBLE Piperacillin/Tazobactam <=4 SUSCEPTIBLE Susceptible [facility] Comment on above: Performed By: #### H H, BMPX #### [facility] [address] [place] [address] Ad Operations Coordinator: Luis Solis MD APTTon 09-29-2022 aPTT Coag (Bld) [Time] 30.4 s Normal 20.5-30.5 [facility] Comment on above: Result Comment: IV Heparin Therapy Range: 48.6-77.8 Performed By: #### H H, BMPX #### [facility] [address] [place] [address] Ad Operations Coordinator: Luis Solis MD Procalcitoninon 09-29-2022 Procalcitonin 0.23 ng/mL High <0.09 [facility] Comment on above: Result Comment: Suspected [...] entered into the Change in Procalcitonin Calculator ([email or web address]-dkz-[email or web address]) to determine the patient's Mortality Risk Prognosis In healthy neonates, plasma Procalcitonin (PCT) concentrations increase gradually after , reaching peak values at about 24 hours of age then decrease to normal values below 0.5 ng/mL by 48-72 hours of age. Performed By: #### R CHITO, BMPX #### [facility] [address] [place] [address] Ad Operations Coordinator: Luis Solis MD APTTon 09-28-2022 aPTT Coag (Bld) [Time] 110.7 s Critically high 20.5-30.5 [facility] Comment on above: Result Comment: IV Heparin Therapy Range: 48.6-77.8 Performed By: #### P TT #### [facility] [address] [place] [address] Ad Operations Coordinator: Luis Solis MD aPTT Coag (Bld) [Time] 24.1 s Normal 20.5-30.5 [facility] Comment on above: Result Comment: IV Heparin Therapy Range: 48.6-77.8 Performed By: #### H H, BMPX #### [facility] [address] [place] [address] Ad Operations Coordinator: Luis Solis MD aPTT Coag (Bld) [Time] 22.6 s Normal 20.5-30.5 [facility] Comment on above: Result Comment: IV Heparin Therapy Range: 48.6-77.8 Performed By: #### H H, BMPX #### [address] [address] Ad Operations Coordinator: Luis Solis MD Basic Metab w/rfx MGon 09-28 Anion gap [Moles/Vol] 10 mmol/L Normal 9-17 [facility] Comment on above: Performed By: #### R EJEC, BMPX #### [facility] [address] [place] [address] Ad Operations Coordinator: Luis Solis MD Calcium [Mass/Vol] 7.6 mg/dL Low 8.6-10.4 [facility] Comment on above: Performed By: #### R CHITO, BMPX #### [facility] [address] [place] [address]19 Ad Operations Coordinator: Luis Solis MD Chloride [Moles/Vol] 107 mmol/L Normal 98-107 [facility] Comment on above: Performed By: #### R EJJESE, BMPX #### [facility] [address] [place] [address]754 Ad Operations Coordinator: Luis Solis MD CO2 [Moles/Vol] 23 mmol/L Normal 20-31 [facility] Comment on above: Performed By: #### R EJJESE, BMPX #### [facility] [address] [place] [address]30 Ad Operations Coordinator: Luis Solis MD Creatinine [Mass/Vol] 1.33 mg/dL High 0.50-0.90 [facility] Comment on above: Performed By: #### R EJEC, BMPX #### [facility] [address] [place] [address]160 Ad Operations Coordinator: Luis Solis MD GFR/1.73 sq M.predicted among non-blacks MDRD (S/P/Bld) [Vol rate/Area] 41 mL/min/{1.73_m2} Low >60 [facility] Comment on above: Result Comment: Effective [...] Performed By: #### Jeff DALE BMPX #### [facility] [address] [place] [address]329 Ad Operations Coordinator: Luis Solis MD Glucose [Mass/Vol] 243 mg/dL High 70-99 [facility] Comment on above: Performed By: #### Jeff DALE BMPX #### [address] [address] Ad Operations Coordinator: Luis Solis MD Potassium [Moles/Vol] 4.5 mmol/L Normal 3.7-5.3 [facility] Comment on above: Performed By: #### Jeff DALE BMPX #### [address] [address] Ad Operations Coordinator: Luis Solis MD Sodium [Moles/Vol] 140 mmol/L Normal 135-144 [facility] Comment on above: Performed By: #### Jeff DALE BMPX #### [facility] [address] [place] [address] Ad Operations Coordinator: Luis Solis MD Urea nitrogen [Mass/Vol] 21 mg/dL Normal 8-23 [facility] Comment on above: Performed By: #### Jeff DALE BMPX #### [address] [address] Ad Operations Coordinator: Luis Solis MD Brain Natri. Peptideon 09-28 Natriuretic peptide B (Bld) [Mass/Vol] 5275 pg/mL High <300 [facility] Comment on above: Result Comment: An age-independent cutoff point of 300 pg/ml has a 98% negative predictive value excluding acute heart failure. Performed By: #### H H, BMPX #### [facility] [address] [place] [address] Ad Operations Coordinator: Luis Solis MD C-Reactive Proteinon 022 CRP [Mass/Vol] 48.0 mg/L High 0.0-5.0 [facility] Comment on above: Performed By: #### R EJEC, BMPX #### [facility] [address] [place] [address]10 Ad Operations Coordinator: Luis Solis MD CBC with Diffon 09-28-2022 Abs. Basophil 0.06 k/uL Normal 0.00-0.20 [facility] Comment on above: Performed By: #### H H, BMPX #### [facility] [address] [place] [address]876 Ad Operations Coordinator: Luis Solis MD Abs.Imm.Granulocyte 0.16 k/uL Normal 0.00-0.30 [facility] Comment on above: Performed By: #### H H, BMPX #### [facility] [address] [place] [address] Ad Operations Coordinator: Luis Solis MD Abs.Neutrophil (Seg) 10.78 k/uL High 1.50-8.10 [facility] Comment on above: Performed By: #### H H, BMPX #### [facility] [address] [place] [address]73 Ad Operations Coordinator: Luis Solis MD Basophils/100 WBC (Bld) 1 % Normal 0-2 [facility] Comment on above: Performed By: #### H H, BMPX #### [facility] [address] [place] [address] Ad Operations Coordinator: Luis Solis MD Eosinophils (Bld) [#/Vol] 0.20 10*3/uL Normal 0.00-0.44 [facility] Comment on above: Performed By: #### H H, BMPX #### [facility] [address] [place] [address] Ad Operations Coordinator: Luis Solis MD Eosinophils/100 WBC (Bld) 2 % Normal 1-4 [facility] Comment on above: Performed By: #### H H, BMPX #### [facility] [address] [place] [address] Ad Operations Coordinator: Luis Solis MD Erythrocyte distribution width (RBC) [Ratio] 16.7 % High 11.8-14.4 [facility] Comment on above: Performed By: #### H H, BMPX #### [facility] [address] [place] [address] Ad Operations Coordinator: Luis Solis MD Hematocrit (Bld) [Volume fraction] 27.2 % Low 36.3-47.1 [facility] Comment on above: Performed By: #### H H, BMPX #### [place] [address] Ad Operations Coordinator: Luis Solis MD Hemoglobin (Bld) [Mass/Vol] 8.1 g/dL Low 11.9-15.1 [facility] Comment on above: Performed By: #### H H, BMPX #### [facility] [address] [place] [address] Ad Operations Coordinator: Luis Solis MD Immature granulocytes/100 WBC (Bld) 1 % High 0 [facility] Comment on above: Performed By: #### H H, BMPX #### [facility] [address] [place] [address] Ad Operations Coordinator: Luis Solis MD Lymphocytes (Bld) [#/Vol] 0.74 10*3/uL Low 1.10-3.70 [facility] Comment on above: Performed By: #### H H, BMPX #### [address] [address] Ad Operations Coordinator: Luis Solis MD Lymphocytes/100 WBC (Bld) 6 % Low 24-43 [facility] Comment on above: Performed By: #### H H, BMPX #### [place] [address] Ad Operations Coordinator: Luis Solis MD MCH (RBC) [Entitic mass] 26.9 pg Normal 25.2-33.5 [facility] Comment on above: Performed By: #### H H, BMPX #### [place] [address] Ad Operations Coordinator: Luis Solis MD MCHC (RBC) [Mass/Vol] 29.8 g/dL Normal 28.4-34.8 [facility] Comment on above: Performed By: #### H H, BMPX #### [place] [address] Ad Operations Coordinator: Luis Solis MD MCV (RBC) [Entitic vol] 90.4 fL Normal 82.6-102.9 [facility] Comment on above: Performed By: #### H H, BMPX #### [place] [address] Ad Operations Coordinator: Luis Solis MD Monocytes (Bld) [#/Vol] 0.78 10*3/uL Normal 0.10-1.20 [facility] Comment on above: Performed By: #### H H, BMPX #### [address] [address] Ad Operations Coordinator: Luis Solis MD Monocytes/100 WBC (Bld) 6 % Normal 3-12 [facility] Comment on above: Performed By: #### H H, BMPX #### [facility] [address] [place] [address] Ad Operations Coordinator: Luis Solis MD Neutrophil (Seg) 84 % High 36-65 [facility] Comment on above: Performed By: #### H H, BMPX #### [facility] [address] [place] [address]187 Ad Operations Coordinator: Luis Solis MD NRBC Automated 0.2 per 100 WBC High 0.0 [facility] Comment on above: Performed By: #### H H, BMPX #### [facility] [address] [place] [address] Ad Operations Coordinator: Luis Solis MD Platelet mean volume (Bld) [Entitic vol] 9.9 fL Normal 8.1-13.5 [facility] Comment on above: Performed By: #### H H, BMPX #### [address] [address] Ad Operations Coordinator: Luis Solis MD Platelets (Bld) [#/Vol] 391 10*3/uL Normal 138-453 [facility] Comment on above: Performed By: #### H H, BMPX #### [address] [address] Ad Operations Coordinator: Luis Solis MD RBC (Bld) [#/Vol] 3.01 10*6/uL Low 3.95-5.11 [facility] Comment on above: Performed By: #### H H, BMPX #### [address] [address] Ad Operations Coordinator: Luis Solis MD RBC morphology finding Nom (Bld) ANISOCYTOSIS PRESENT Normal [facility] Comment on above: Performed By: #### H H, BMPX #### [facility] [address] [place] [address] Ad Operations Coordinator: Luis Solis MD WBC (Bld) [#/Vol] 12.7 10*3/uL High 3.5-11.3 [facility] Comment on above: Performed By: #### H H, BMPX #### [facility] [address] [place] [address] Ad Operations Coordinator: Luis Solis MD CT CHEST PULMONARY EMBOLISM [...] PROVIDED HISTORY: tachlucy hypoxia TECHNOLOGIST PROVIDED HISTORY: Tachy, hypoxia Decision Support Exception - unselect if [...] Matthew Chong MD 09/28/22 Final result Normal [facility] Comp Metabolic Profon 2021 Albumin [Mass/Vol] 3.5 g/dL Normal 3.5-5.2 [facility] Comment on above: Performed By: #### H H, BMPX #### [address] [address] Ad Operations Coordinator: Luis Solis MD Albumin/Glob Ratio 0.9 Low 1.0-2.5 [facility] Comment on above: Performed By: #### H H, BMPX #### [facility] [address] [place] [address] Ad Operations Coordinator: Luis Solis MD Alkaline Phos 104 U/L Normal 35-104 [facility] Comment on above: Performed By: #### H H, BMPX #### [address] [address] Ad Operations Coordinator: Luis Solis MD ALT [Catalytic activity/Vol] 7 U/L Normal 5-33 [facility] Comment on above: Performed By: #### H H, BMPX #### [address] [id number] Ad Operations Coordinator: Luis Solsi MD Anion gap [Moles/Vol] 13 mmol/L Normal 9-17 [facility] Comment on above: Performed By: #### H H, BMPX #### [facility] [address] [place] [address] Ad Operations Coordinator: Luis Solis MD AST [Catalytic activity/Vol] 15 U/L Normal <32 [facility] Comment on above: Performed By: #### H H, BMPX #### [facility] [address] [place] [address] Ad Operations Coordinator: Luis Solis MD Bilirubin [Mass/Vol] 0.5 mg/dL Normal 0.3-1.2 [facility] Comment on above: Performed By: #### H H, BMPX #### [address] [address] Ad Operations Coordinator: Luis Solis MD Calcium [Mass/Vol] 8.5 mg/dL Low 8.6-10.4 [facility] Comment on above: Performed By: #### H H, BMPX #### [address] [address] Ad Operations Coordinator: Luis Solis MD Chloride [Moles/Vol] 102 mmol/L Normal 98-107 [facility] Comment on above: Performed By: #### H H, BMPX #### [facility] [address] [place] [address] Ad Operations Coordinator: Luis Solis MD CO2 [Moles/Vol] 24 mmol/L Normal 20-31 [facility] Comment on above: Performed By: #### H H, BMPX #### [facility] [address] [place] [address] Ad Operations Coordinator: Luis Solis MD Creatinine [Mass/Vol] 1.62 mg/dL High 0.50-0.90 [facility] Comment on above: Performed By: #### H H, BMPX #### [facility] [address] [place] [address] Ad Operations Coordinator: Luis Solis MD GFR/1.73 sq M.predicted among non-blacks MDRD (S/P/Bld) [Vol rate/Area] 33 mL/min/{1.73_m2} Low >60 [facility] Comment on above: Result Comment: Effective [...] Performed By: #### H H, BMPX #### [facility] [address] [place] [address] Ad Operations Coordinator: Luis Solis MD Glucose [Mass/Vol] 272 mg/dL High 70-99 [facility] Comment on above: Performed By: #### H H, BMPX #### [facility] [address] [place] [address] Ad Operations Coordinator: Luis Solis MD Potassium [Moles/Vol] 4.4 mmol/L Normal 3.7-5.3 [facility] Comment on above: Performed By: #### H H, BMPX #### [facility] [address] [place] [address] Ad Operations Coordinator: Luis Solis MD Protein [Mass/Vol] 7.3 g/dL Normal 6.4-8.3 [facility] Comment on above: Performed By: #### H H, BMPX #### [facility] [address] [place] [address] Ad Operations Coordinator: Luis Solis MD Sodium [Moles/Vol] 139 mmol/L Normal 135-144 [facility] Comment on above: Performed By: #### H H, BMPX #### [facility] [address] [place] [address] Ad Operations Coordinator: Luis Solis MD Urea nitrogen [Mass/Vol] 22 mg/dL Normal 8-23 [facility] Comment on above: Performed By: #### H H, BMPX #### [facility] [address] [place] [address] Ad Operations Coordinator: Luis Solis MD Lactate, Sepsison 09-28-2022 Lactic Acid,Sep Wbld 0.6 mmol/L Normal 0.5-1.9 [facility] Comment on above: Performed By: #### R EJEC, BMPX #### [facility] [address] [place] [address] Ad Operations Coordinator: Luis Solis MD Lactic Acid,Sep Wbld 1.5 mmol/L Normal 0.5-1.9 [facility] Comment on above: Performed By: #### H H, BMPX #### [address] [address] Ad Operations Coordinator: Luis Solis MD Legionella Ag, Uron 09-28-20 22 Legionella Ag, Ur Negative Normal NEG [facility] Comment on above: Result Comment: L. p neumophila serogroup 1 antigen not detected. A negative result does not exclude infection with Leginella pnemophila serogroup 1 nor does it rule out other microbial-caused respiratory infections of disease caused by other serogroups of Legionella pneumophila. Performed By: #### H H, BMPX #### [address] [address] Ad Operations Coordinator: Luis Solis MD PTon 09-28-2022 INR Coag (PPP) [Relative time] 1.1 {INR} Normal [facility] Comment on above: Result Comment: Therapeutic Range: Moderate Anticoagulant Intensity: INR = 2.0-3.0 High Anticoagulant Intensity: INR = 2.5-3.5 Performed By: #### H H, BMPX #### [address] [phone] Ad Operations Coordinator: Luis Solis MD PT Coag (PPP) [Time] 11.8 s Normal 9.1-12.3 [facility] Comment on above: Performed By: #### H H, BMPX #### [address] [phone] Ad Operations Coordinator: Luis Solis MD [id number] 09-28-2022 SARS-CoV-2 (COVID-19) RNA SIRI+probe Ql (Unsp spec) Not detected Normal NOTDET [facility] Comment on above: Result Comment: Rapid [...] management decisions. Fact sheet for Healthcare Providers: https://www.fda.gov/media/651077/download Fact sheet for Patients: https://www.fda.gov/media/561477/download Methodology: Isothermal Nucleic Acid Amplification Performed By: #### Jeff DALE BMPX #### [facility] [address] [place] [address] [phone] Ad Operations Coordinator: Luis Solis MD Sedimentation Rateon 022 Sedimentation Rate 61 mm/Hr High 0-30 [facility] Comment on above: Performed By: #### Jeff DALE, BMPX #### [facility] [address] [place] [address] Ad Operations Coordinator: Luis Solis MD Strep pneum Ag,CSF/Uron 09-15 Strep pneum Ag Negative Normal [facility] Comment on above: Result Comment: Stre p pneumoniae antigen not detected Performed By: #### R CHITO, BMPX #### [facility] [address] [place] [address] Ad Operations Coordinator: Luis Solis MD Strep pneu Ag Source .URINE Normal [facility] Comment on above: Performed By: #### R CHITO, BMPX #### [facility] [address] [place] [address] Ad Operations Coordinator: Luis Solis MD Troponinon 09-28-2022 Troponin, High Sens 222 ng/L Critically high 0-14 [facility] Comment on above: Result Comment: High Sensitivity Troponin values cannot be compared with other Troponin methodologies. Patients with high levels of Biotin oral intake (i.e >5mg/day) may have falsely decreased Troponin levels. Samples collected within 8 hours of biotin intake may require additional information for diagnosis. Performed By: #### R CHITO, BMPX #### [facility] [address] [place] [address] Ad Operations Coordinator: Luis Solis MD Troponin, High Sens 219 ng/L Critically high 0-14 [facility] Comment on above: Result Comment: High Sensitivity Troponin values cannot be compared with other Troponin methodologies. Patients with high levels of Biotin oral intake (i.e >5mg/day) may have falsely decreased Troponin levels. Samples collected within 8 hours of biotin intake may require additional information for diagnosis. Performed By: #### H H, BMPX #### [address] [address] Ad Operations Coordinator: Luis Solis MD Type + Screenon 09-28-2022 Type + Screen Sample Expiration 10/01/2022,2359 Arm Band Number BE [id number] ABO/Rh(D) O NEGATIVE Antibody Screen NEGATIVE Normal [facility] Comment on above: Performed By: #### H H, BMPX #### [address] [address] Ad Operations Coordinator: Luis Solis MD Urinalysis w/ Microon 2021 Bacteria MANY Abnormal NONE [facility] Comment on above: Performed By: #### H H, BMPX #### [address] [address] Ad Operations Coordinator: Luis Solis MD Bilirubin, SemiQt,Ur Negative Normal NEG [facility] Comment on above: Performed By: #### H H, BMPX #### [address] [address] Ad Operations Coordinator: Luis Solis MD Blood, Urine Negative Normal NEG [facility] Comment on above: Performed By: #### H H, BMPX #### [address] [address] Ad Operations Coordinator: Luis Solis MD Casts 0 TO 2 HYALINE Normal 0-8 [facility] Comment on above: Result Comment: Refe rence range defined for non-centrifuged specimen. Performed By: #### H H, BMPX #### [address] [address] Ad Operations Coordinator: Luis Solis MD Clarity (U) Cloudy Abnormal CLEAR [facility] Comment on above: Performed By: #### H H, BMPX #### [facility] [address] [place] [address] Ad Operations Coordinator: Luis Solis MD Color (U) Yellow Normal YEL [facility] Comment on above: Performed By: #### H H, BMPX #### [address] [address] Ad Operations Coordinator: Luis Solis MD Epithelial cells LM Ql (Urine sed) 5 TO 10 Normal 0-5 [facility] Comment on above: Performed By: #### H H, BMPX #### [address] [address] Ad Operations Coordinator: Luis Solis MD Glucose Ql (U) 2+ Abnormal NEG [facility] Comment on above: Performed By: #### H H, BMPX #### [address] [address] Ad Operations Coordinator: Luis Solis MD Ketones Ql (U) TRACE Abnormal NEG [facility] Comment on above: Performed By: #### H H, BMPX #### [facility] [address] [place] [address] Ad Operations Coordinator: Luis Solis MD Leukocyte esterase Test strip Ql (U) TRACE Abnormal NEG [facility] Comment on above: Performed By: #### H H, BMPX #### [facility] [address] [place] [address] Ad Operations Coordinator: Luis Solis MD Nitrite,Ur Negative Normal NEG [facility] Comment on above: Performed By: #### H H, BMPX #### [facility] [address] [place] [address] Ad Operations Coordinator: Luis Solis MD PH,Ur 5.5 Normal 5.0-8.0 [facility] Comment on above: Performed By: #### H H, BMPX #### [facility] [address] [place] [address] Ad Operations Coordinator: Luis Solis MD Protein Ql (U) TRACE Abnormal NEG [facility] Comment on above: Performed By: #### H H, BMPX #### [facility] [address] [place] [address] Ad Operations Coordinator: Luis Solis MD Spec. [place],Ur 1.018 Normal 1.005-1.030 [facility] Comment on above: Performed By: #### H H, BMPX #### [facility] [address] [place] [address] Ad Operations Coordinator: uLis Solis MD Urine RBC's 0 TO 2 Normal 0-4 [facility] Comment on above: Result Comment: Refe rence range defined for non-centrifuged specimen. Performed By: #### H H, BMPX #### [facility] [address] [place] [address] Ad Operations Coordinator: Luis Solis MD Urine WBC's 10 TO 20 Normal 0-5 [facility] Comment on above: Performed By: #### H H, BMPX #### [facility] [address] [place] [address] Ad Operations Coordinator: Luis Solis MD Urobilinogen,Ur Normal Normal NORM [facility] Comment on above: Performed By: #### H H, BMPX #### [facility] [address] [place] [address] Ad Operations Coordinator: Luis Solis MD XR CHEST PORTABLEon 09-28-20 [...] Garth Herr MD 09/28/22 Final result Normal [facility] CT BRAIN WO CONTRASTon 03-31 CT BRAIN WO CONTRAST [facility] Department of Radiology [address] [place] [address] ===== Patient Name: CUCA GOODWIN : 1945 Sex: F Age: Race: White Pt. 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 Electronically signed: Mari Chavez. 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 COMPARISON: 09/17/2020. [...] described. Electronically signed: Lam Chew. Transcribed by: [email or web address], User Resident: Electronically Signed by: LAM CHEW @ 04/03/2022 08:50 AM Normal [facility] Comment on above: Order Comment: , .br E.brEr/o kinking or discontinuity of shunt tubing and do image perpendicularl to valve to check OP , .brr/o kinking or discontinuity of shunt tubing and do image perpendicularl to valve to check OP , , , Ordering Provider - Danielle RAWLS SALON STYLIST , Lipid Profileon 03-26-2021 Cholesterol [Mass/Vol] 117 mg/dL Normal <200 [facility] Comment on above: Result Comment: Cholesterol Guidelines: <200 Desirable 200-240 Borderline >240 Undesirable Performed By: #### L IPR #### [facility] [address] [place] [address] [phone] Ad Operations Coordinator: Luis Solis MD Cholesterol in HDL [Mass/Vol] 39 mg/dL Low >40 [facility] Comment on above: Result Comment: HDL Guidelines: <40 Undesirable 40-59 Borderline >59 Desirable Performed By: #### L IPR #### [facility] [address] [place] [address] [phone] Ad Operations Coordinator: Luis Solis MD Cholesterol in LDL [Mass/Vol] 62 mg/dL Normal 0-130 [facility] Comment on above: Result Comment: LDL Guidelines: <100 Desirable 100-129 Near to/above Desirable 130-159 Borderline >159 Undesirable Direct (measured) LDL and calculated LDL are not interchangeable tests. Performed By: #### L IPR #### [facility] [address] [place] [address] Ad Operations Coordinator: Luis Solis MD Cholesterol.total/C holesterol in HDL [Mass ratio] 3.0 {ratio} Normal <5 [facility] Comment on above: Performed By: #### L IPR #### [facility] [address] [place] [address] Ad Operations Coordinator: Luis Solis MD Triglyceride [Mass/Vol] 79 mg/dL Normal <150 [facility] Comment on above: Result Comment: Triglyceride Guidelines: <150 Desirable 150-199 Borderline 200-499 High >499 Very high Based on AHA Guidelines for fasting triglyceride, August 2012. Performed By: #### L IPR #### [facility] [address] [place] [address] Ad Operations Coordinator: Luis Solis MD Cholesterol,VLDL NOT REPORTED Normal 12-14 [facility] Comment on above: Performed By: #### L IPR #### [facility] [address] [place] [address] Ad Operations Coordinator: Luis Solis MD Uric Acidon 03-24-2021 Urate [Mass/Vol] 6.8 mg/dL High 2.4-5.7 [facility] Comment on above: Performed By: #### U RI #### [facility] [address] [place] [address] Ad Operations Coordinator: Giovanny Carpenter MD Uric AcidOrdered By: Lakeshia Farias on 03-24-2021 Interpretation and review of laboratory results Abnormal [facility] Phone: Urate [Mass/Vol] 6.8 mg/dL High 2.4 - 5.7 mg/dL [facility] Phone: CBC AUTO DIFFon 03-20-2021 BASO # 0.0 103/ul Normal 0.0-0.1 [facility] Comment on above: Performed By: #### C BC #### [facility] [address] [place], [place] [address] Ghulam Amy Basophils/100 WBC (Bld) 0.4 % Normal 0.2-2.0 [facility] Comment on above: Performed By: #### C BC #### [facility] [address] [place] [address] Ghulam Amy EO # 0.4 103/ul Normal 0.0-0.7 [facility] Comment on above: Performed By: #### C BC #### [facility] [address] [place], [place] [phone] Ghulam Amy Eosinophils/100 WBC (Bld) 4.3 % Normal 0.9-7.0 [facility] Comment on above: Performed By: #### C BC #### [facility] [address] [place] [address] Ghulam Amy Erythrocyte distribution width (RBC) [Ratio] 15.9 % Critically high 11.0-15.0 [facility] Comment on above: Performed By: #### C BC #### [facility] [address] [place] [address] Ghulam Amy Hematocrit (Bld) [Volume fraction] 28.5 % Critically low 36.0-48.0 [facility] Comment on above: Performed By: #### C BC #### [facility] [address] [place], [place] [phone] Ghulam Amy Hemoglobin (Bld) [Mass/Vol] 8.9 g/dL Critically low 12.0-16.0 [facility] Comment on above: Performed By: #### C BC #### [facility] [address] [place], [place] [address] Ghulam Amy IG # 0.04 10e3/ul Critically high 0.00-0.[address] [place] [facility] Comment on above: Performed By: #### C BC #### [facility] [address] [place] [address] Ghulam Amy IG % 0.4 % Normal 0.0-0.5 [facility] Comment on above: Performed By: #### C BC #### [facility] [address] [place], [place] [phone] Ghulam Amy LYMPH # 2.2 103/ul Normal 1.2-3.8 [facility] Comment on above: Performed By: #### C BC #### [facility] [address] [place], [place] [phone] Ghulam Aym Lymphocytes/100 WBC (Bld) 21.9 % Normal 20.5-60.0 [facility] Comment on above: Performed By: #### C BC #### [facility] [address] [place], [place] [phone] Ghulam Reyes MANUAL DIFF REQ NO Normal [facility] [place] [facility] Comment on above: Performed By: #### C BC #### [facility] [address] [place], [place] [phone] Ghulamgabriela Reyes MCH (RBC) [Entitic mass] 27.1 pg Normal 26.7-34.0 [facility] Comment on above: Performed By: #### C BC #### [facility] [address] [place], [place] [phone] Ghulam Reyes MCHC (RBC) [Mass/Vol] 31.2 g/dL Normal 29.9-35.2 [facility] Comment on above: Performed By: #### C BC #### [facility] [address] [place] [address] Ghulamgabriela Reyes MCV (RBC) [Entitic vol] 86.9 fL Normal 81.0-99.0 [facility] Comment on above: Performed By: #### C BC #### [facility] [address] [place], [place] [address] Ghulamgabriela Reyes MONO # 1.0 103/ul Critically high 0.3-0.8 [facility] Comment on above: Performed By: #### C BC #### [facility] [address] [place], [place] [address] Ghulam Sotoen Monocytes/100 WBC (Bld) 10.1 % Normal 1.7-12.0 [facility] Comment on above: Performed By: #### C BC #### [facility] [address] [place], [place] [address] Ghulam Amy NEUT # 6.2 103/ul Normal 1.4-6.5 [facility] Comment on above: Performed By: #### C BC #### [facility] [address] [place], [place] [address] Ghulam Amy Neutrophils/100 WBC (Bld) 62.9 % Normal 43.0-75.0 [facility] Comment on above: Performed By: #### C BC #### [facility] [address] [place], [place] [phone] Ghulam Reyes Platelet mean volume (Bld) [Entitic vol] 10.2 fL Normal 9.5-13.5 [facility] Comment on above: Performed By: #### C BC #### [facility] [address] [place], [place] [address] Ghulamgabriela Sotoen PLT 289 103/ul Normal 150-450 [facility] Comment on above: Performed By: #### C BC #### [facility] [address] [place], [place] [address] Ghulam Amy RBC 3.28 106/ul Critically low 4.20-5.40 [facility] [place] [facility] Comment on above: Performed By: #### C BC #### [facility] [address] [place], [place] [address] Ghulamgabriela Sotoen WBC 9.9 103/ul Normal 4.0-11.0 [facility] Comment on above: Performed By: #### C BC #### [facility] [address] [place], [place] [address] Ghulam Reyes PROF 14(COMP METB)on 021 Albumin [Mass/Vol] 2.8 g/dL Critically low 3.5-5.0 [facility] Comment on above: Performed By: #### C MP #### [facility] [address] [place], [place] [address] Ghulam Amy Albumin/Globulin [Mass ratio] 0.6 {ratio} Normal [facility] Comment on above: Performed By: #### C MP #### [facility] [address] [place], [place] [address] Ghulam Amy ALP [Catalytic activity/Vol] 95 U/L Normal 38-126 [facility] Comment on above: Performed By: #### C MP #### [facility] [address] [place], [place] [address] Ghulam Amy ALT [Catalytic activity/Vol] 16 U/L Normal 9-52 [facility] Comment on above: Performed By: #### C MP #### [facility] [address] [place], [place] [address] Ghulam Amy Anion gap [Moles/Vol] 11.6 mmol/L Normal [facility] Comment on above: Performed By: #### C MP #### [facility] [address] [place] [phone] Ghulam Amy AST [Catalytic activity/Vol] 13 U/L Critically low 14-36 [facility] Comment on above: Performed By: #### C MP #### [facility] [address] [place] [phone] Ghulam Amy Bilirubin [Mass/Vol] 0.4 mg/dL Normal 0.2-1.3 [facility] Comment on above: Performed By: #### C MP #### [facility] [address] [place] [address] Ghulam Amy Calcium [Mass/Vol] 8.9 mg/dL Normal 8.4-10.[address] [facility] Comment on above: Performed By: #### C MP #### [facility] [address] [place] [phone] Ghulam Amy Chloride [Moles/Vol] 103 mmol/L Normal 98-107 [facility] Comment on above: Performed By: #### C MP #### [facility] [address] [place] [address] Ghulam Amy CO2 [Moles/Vol] 27.4 mmol/L Normal 22.0-30.0 [facility] [place] [facility] Comment on above: Performed By: #### C MP #### [facility] [address] [place] [phone] Ghulam Amy Creatinine [Mass/Vol] 1.86 mg/dL Critically high 0.52-1.04 [facility] Comment on above: Performed By: #### C MP #### [facility] [address] [place] [phone] Ghulam Amy EGFR-AF BAHAMIAN 32 mL/min/1.73m2 Critically low >=60 [facility] Comment on above: Performed By: #### C MP #### [facility] [address] [place] [address] Ghulam Amy EGFR-NON AF BAHAMIAN 26 mL/min/1.73m2 Critically low >=60 [facility] Comment on above: Performed By: #### C MP #### [facility] [address] [place] [phone] Ghulam Amy Globulin (S) [Mass/Vol] 4.6 g/dL Normal [facility] Comment on above: Performed By: #### C MP #### [facility] [address] [place] [address] Ghulam Amy Glucose [Mass/Vol] 174 mg/dL Critically high 74-106 [facility] Comment on above: Performed By: #### C MP #### [facility] [address] [place] [address] Ghulam Amy Potassium [Moles/Vol] 4.0 mmol/L Normal 3.4-5.0 [facility] Comment on above: Performed By: #### C MP #### [facility] [address] [place] [address] Ghulam Amy Protein [Mass/Vol] 7.4 g/dL Normal 6.1-8.[address] [facility] Comment on above: Performed By: #### C MP #### [facility] [address] [place], [place] [address] Ghulam Amy Sodium [Moles/Vol] 138 mmol/L Normal 137-[address] [facility] Comment on above: Performed By: #### C MP #### [facility] [address] [place] [address] Ghulam Amy Urea nitrogen [Mass/Vol] 24.0 mg/dL Critically high 7.0-17.0 [facility] Comment on above: Performed By: #### C MP #### [facility] [address] [place], [place] [address] Ghulam Amy Urea nitrogen/Creatinine [Mass ratio] 12.9 mg/mg Normal [facility] Comment on above: Performed By: #### C MP #### [facility] [address] [place] [address] Ghulam Amy RESPIRATORY PANEL PLUSon Adenovirus Not detected Normal NOT DETECTED [facility] Comment on above: Performed By: #### R SPLUS #### [facility] [address] [place] [address] Ghulam Amy B. Parapertusis Not detected Normal NOT DETECTED [facility] Comment on above: Performed By: #### R SPLUS #### [facility] [address] [place] [address] Ghulam Amy B. Pertussis Not detected Normal NOT DETECTED [facility] [place] [facility] Comment on above: Performed By: #### R SPLUS #### [facility] [address] [place] [address] Ghulam Amy Chlamydia Pneumoniae Not detected Normal NOT DETECTED The [facility] Comment on above: Performed By: #### R SPLUS #### [facility] [address] [place] [address] Ghulam Amy Coronavirus 229E Not detected Normal NOT DETECTED [facility] Comment on above: Performed By: #### R SPLUS #### [facility] [address] [place] [address] Ghulam Amy Coronavirus HKU1 Not detected Normal NOT DETECTED [facility] Comment on above: Performed By: #### R SPLUS #### [facility] [address] [place] [address] Ghulam Amy Coronavirus NL63 Not detected Normal NOT DETECTED [facility] Comment on above: Performed By: #### R SPLUS #### [facility] [address] [place] [address] Ghulam Amy Coronavirus OC43 Not detected Normal NOT DETECTED [facility] Comment on above: Performed By: #### R SPLUS #### [facility] [address] [place] [address] Ghulam Amy Influenza A H1 2009 Not detected Normal NOT DETECTED [facility] Comment on above: Performed By: #### R SPLUS #### [facility] [address] [place] [address] Ghulam Amy Influenza B Not detected Normal NOT DETECTED [facility] Comment on above: Performed By: #### R SPLUS #### [facility] [address] [place] [address] Ghulam Amy Metapneumovirus Not detected Normal NOT DETECTED The [facility] Comment on above: Performed By: #### R SPLUS #### [facility] [address] [place] [address] Ghulam Amy Mycoplas. Pneumoniae Not detected Normal NOT DETECTED [facility] Comment on above: Performed By: #### R SPLUS #### [facility] [address] [place] [address] Ghulam Aym Parainfluenza 1 Not detected Normal NOT DETECTED [facility] Comment on above: Performed By: #### R SPLUS #### [facility] [address] [place] [address] Ghulam Amy Parainfluenza 2 Not detected Normal NOT DETECTED [facility] Comment on above: Performed By: #### R SPLUS #### [facility] [address] [place] [address] Ghulam Amy Parainfluenza 3 Not detected Normal NOT DETECTED [facility] Comment on above: Performed By: #### R SPLUS #### [facility] [address] [place] [address] Ghulam Amy Parainfluenza 4 Not detected Normal NOT DETECTED [facility] Comment on above: Performed By: #### R SPLUS #### [facility] [address] [place] [address] Ghulam Amy Rhino/Enterovirus Not detected Normal NOT DETECTED [facility] Comment on above: Performed By: #### R SPLUS #### [facility] [address] [place] [address] Ghulam Amy RP2 Header 1 RESPIRATORY PANEL: VIRUSES Normal [facility] Comment on above: Performed By: #### R SPLUS #### [facility] [address] [place] [address] Ghulam Amy RP2 Header 2 RESPIRATORY PANEL: BACTERIA Normal [facility] Comment on above: Performed By: #### R SPLUS #### [facility] [address] [place] [address] Ghulam Reyes RP2 Header 4 EUA SEE BELOW Normal [facility] Comment on above: Result Comment: This test is not yet approved or cleared by the [place] FDA. When there are no FDA-approved or cleared tests available, and other criteria are met, FDA can make tests available under an emergency access mechanism called an Emergency Use Authorization (EUA). The EUA for this test is supported by the Sr Community Manager of Health and Human Service?s (HHS?s) declaration [...] used). Performed By: #### R SPLUS #### [facility] [address] [place] [address] Ghulam Reyes RSV Not detected Normal NOT DETECTED The [facility] Comment on above: Performed By: #### R SPLUS #### [facility] [address] [place] [address] Ghulam Reyes SARS-CoV-2 (COVID-19) RNA SIRI+probe Ql (Unsp spec) Not detected Normal NOT DETECTED [facility] Comment on above: Performed By: #### R SPLUS #### [facility] [address] [place] [address] Ghulam Reyes URIC ACID SERUMon 03-20-2021 Urate [Mass/Vol] 7.4 mg/dL Critically high 2.5-6.2 [facility] Comment on above: Performed By: #### U GIRISH #### [facility] [address] [place] [address] Ghulam Reyes CBC AUTO DIFFon 03-19-2021 BASO # 0.0 103/ul Normal 0.0-0.1 [facility] Comment on above: Performed By: #### C BC #### [facility] [address] [place] [address] Ghulam Reyes Basophils/100 WBC (Bld) 0.3 % Normal 0.2-2.0 [facility] Comment on above: Performed By: #### C BC #### [facility] [address] [place] [address] Ghulam Amy EO # 0.1 103/ul Normal 0.0-0.7 [facility] Comment on above: Performed By: #### C BC #### [facility] [address] [place], [place] [id number] Ghulam Amy Eosinophils/100 WBC (Bld) 0.9 % Normal 0.9-7.0 [facility] Comment on above: Performed By: #### C BC #### [facility] [address] [place] [address] Ghulamgabriela Reyes Erythrocyte distribution width (RBC) [Ratio] 15.5 % Critically high 11.0-15.0 [facility] Comment on above: Performed By: #### C BC #### [facility] [address] [place] [address] Ghulamgabriela Reyes Hematocrit (Bld) [Volume fraction] 28.1 % Critically low 36.0-48.0 [facility] Comment on above: Performed By: #### C BC #### [facility] [address] [place], [place] [id number] Ghulamgabriela Reyes Hemoglobin (Bld) [Mass/Vol] 8.9 g/dL Critically low 12.0-16.0 [facility] Comment on above: Performed By: #### C BC #### [facility] [address] [place] [address] Ghulam Amy IG # 0.05 10e3/ul Critically high 0.00-0.03 [facility] Comment on above: Performed By: #### C BC #### [facility] [address] [place] [address] Ghulam Amy IG % 0.5 % Normal 0.0-0.5 [facility] Comment on above: Performed By: #### C BC #### [facility] [address] [place] [address] Ghulam Amy LYMPH # 1.9 103/ul Normal 1.2-3.8 [facility] Comment on above: Performed By: #### C BC #### [facility] [address] [place] [id number] Ghulam Amy Lymphocytes/100 WBC (Bld) 17.2 % Critically low 20.5-60.0 [facility] Comment on above: Performed By: #### C BC #### [facility] [address] [place], [place] [id number] Ghulam Amy MANUAL DIFF REQ NO Normal [facility] Comment on above: Performed By: #### C BC #### [facility] [address] [place], [place] [id number] Ghulam Amy MCH (RBC) [Entitic mass] 27.1 pg Normal 26.7-34.0 [facility] Comment on above: Performed By: #### C BC #### [facility] [address] [place], [place] [id number] Ghulam Amy MCHC (RBC) [Mass/Vol] 31.7 g/dL Normal 29.9-35.2 [facility] Comment on above: Performed By: #### C BC #### [facility] [address] [place], [place] [id number] Ghulam Amy MCV (RBC) [Entitic vol] 85.4 fL Normal 81.0-99.0 [facility] Comment on above: Performed By: #### C BC #### [facility] [address] [place], [place] [id number] Ghulam Amy MONO # 1.0 103/ul Critically high 0.3-0.8 [facility] Comment on above: Performed By: #### C BC #### [facility] [address] [place], [place] [id number] Ghulam Amy Monocytes/100 WBC (Bld) 9.5 % Normal 1.7-12.0 [facility] Comment on above: Performed By: #### C BC #### [facility] [address] [place], [place] [id number] Ghulam Amy NEUT # 7.7 103/ul Critically high 1.4-6.5 [facility] Comment on above: Performed By: #### C BC #### [facility] [address] [place], [place] [address] Ghulam Reyes Neutrophils/100 WBC (Bld) 71.6 % Normal 43.0-75.0 [facility] Comment on above: Performed By: #### C BC #### [facility] [address] [place], [place] [address] Ghulam Reyes Platelet mean volume (Bld) [Entitic vol] 10.1 fL Normal 9.5-13.5 [facility] Comment on above: Performed By: #### C BC #### [facility] [address] [place], [place] [address] Ghulam Sotoen PLT 285 103/ul Normal 150-450 [facility] Comment on above: Performed By: #### C BC #### [facility] [address] [id number] Ghulam Reyes RBC 3.29 106/ul Critically low 4.20-5.40 [facility] [place] [facility] Comment on above: Performed By: #### C BC #### [facility] [address] [id number] Ghulam Reyes WBC 10.7 103/ul Normal 4.0-11.0 [facility] Comment on above: Performed By: #### C BC #### [facility] [address] [id number] Ghulam Reyes MAGNESIUMon 03-19-2020 Magnesium [Mass/Vol] 1.9 mg/dL Normal 1.6-2.3 [facility] Comment on above: Performed By: #### M G ####[facility] [address] [place], [place] [address]Klqqdn Karen POINT OF CARE GLUCOSEon 0 Glucose [Mass/Vol] 68 mg/dL Critically low 74-106 [facility] Comment on above: Performed By: #### P OCGLUC #### [facility] [address] [id number] Ghulam Reyes Glucose [Mass/Vol] 91 mg/dL Normal 74-106 [facility] Comment on above: Performed By: #### P OCGLUC #### [facility] [address] [place], [place] [address] Ghulam Amy Glucose [Mass/Vol] 136 mg/dL Critically high 74-106 [facility] Comment on above: Performed By: #### P OCGLUC #### [facility] [address] [place] [address] Ghulamgabriela Reyes PROF 14(COMP METB)on 021 Albumin [Mass/Vol] 2.7 g/dL Critically low 3.5-5.[address] [facility] Comment on above: Performed By: #### C MP #### [facility] [address] [place], [place] [address] Ghulam Amy Albumin/Globulin [Mass ratio] 0.6 {ratio} Normal [facility] Comment on above: Performed By: #### C MP #### [facility] [address] [place] [address] Ghulam Amy ALP [Catalytic activity/Vol] 99 U/L Normal 38-126 [facility] Comment on above: Performed By: #### C MP #### [facility] [address] [place], [place] [address] Ghulam Amy ALT [Catalytic activity/Vol] 14 U/L Normal 9-52 [facility] Comment on above: Performed By: #### C MP #### [facility] [address] [place], [place] [address] Ghulam Amy Anion gap [Moles/Vol] 10.5 mmol/L Normal [facility] Comment on above: Performed By: #### C MP #### [facility] [address] [place], [place] [id number] Ghulam Amy AST [Catalytic activity/Vol] 13 U/L Critically low 14-36 [facility] Comment on above: Performed By: #### C MP #### [facility] [address] [place], [place] [address] Ghulam Amy Bilirubin [Mass/Vol] 0.5 mg/dL Normal 0.2-1.3 [facility] Comment on above: Performed By: #### C MP #### [facility] [address] [place], [place] [address] Ghulam Amy Calcium [Mass/Vol] 9.1 mg/dL Normal 8.4-10.2 [facility] Comment on above: Performed By: #### C MP #### [facility] [address] [id number] Ghulam Amy Chloride [Moles/Vol] 104 mmol/L Normal 98-107 [facility] Comment on above: Performed By: #### C MP #### [facility] [address] [address] Ghulam Amy CO2 [Moles/Vol] 27.2 mmol/L Normal 22.0-30.0 [facility] Comment on above: Performed By: #### C MP #### [facility] [address] [place] [address] Ghulam Amy Creatinine [Mass/Vol] 1.57 mg/dL Critically high 0.52-1.04 [facility] Comment on above: Performed By: #### C MP #### [facility] [address] [place] [address] Ghulam Amy EGFR-AF BAHAMIAN 39 mL/min/1.73m2 Critically low >=60 [facility] Comment on above: Performed By: #### C MP #### [facility] [address] [place] [address] Ghulam Amy EGFR-NON AF BAHAMIAN 32 mL/min/1.73m2 Critically low >=60 [facility] Comment on above: Performed By: #### C MP #### [facility] [address] [place], [place] [id number] Ghulam Amy Globulin (S) [Mass/Vol] 4.6 g/dL Normal [facility] Comment on above: Performed By: #### C MP #### [facility] [address] [id number] Ghulam Amy Glucose [Mass/Vol] 209 mg/dL Critically high 74-106 [facility] Comment on above: Performed By: #### C MP #### [facility] [address] [address] Ghulam Amy Potassium [Moles/Vol] 3.7 mmol/L Normal 3.4-5.0 [facility] Comment on above: Performed By: #### C MP #### [facility] [address] [place], [place] [address] Ghulam Amy Protein [Mass/Vol] 7.3 g/dL Normal 6.1-8.2 [facility] Comment on above: Performed By: #### C MP #### [facility] [address] [place], [place] [address] Ghulam Amy Sodium [Moles/Vol] 138 mmol/L Normal 137-145 [facility] Comment on above: Performed By: #### C MP #### [facility] [address] [id number] Ghulam Amy Urea nitrogen [Mass/Vol] 28.0 mg/dL Critically high 7.0-17.0 [facility] Comment on above: Performed By: #### C MP #### [facility] [address] [phone] Ghulam Amy Urea nitrogen/Creatinine [Mass ratio] 17.8 mg/mg Normal [facility] Comment on above: Performed By: #### C MP #### [facility] [address] [place], [place] [address] Ghulam Amy Vital Signs Date Time Vital Sign Value Performing Clinician Facility 02-09-2024 13:00-0400 Body height 165.1 cm Pam RICHEY Work Phone: [facility] 02-09-2024 13:00-0400 Body mass index (BMI) [Ratio] 33.35 kg/m2 Pam Ley APRN-[employer] Work Phone: [facility] 02-09-2024 13:00-0400 Body temperature 98.2 [degF] Pam Ley APRN-[employer] Work Phone: [facility] 02-09-2024 13:00-0400 Body weight 90.9 kg Pam Ley [place] Work Phone: [facility] 02-09-2024 13:00-0400 Diastolic blood pressure 72 mm[Hg] Pam Ley APRN-[employer]LIST Work Phone: [facility] 02-09-2024 13:00-0400 Heart rate 79 /min Pam Ley APRN-[employer] Work Phone: [facility] 02-09-2024 13:00-0400 Respiratory rate 20 /min Pam Ley APRN-[employer] Work Phone: [facility] 02-09-2024 13:00-0400 SaO2% (BldA) [Mass fraction] 97 % Pam Ley APRN-[employer] Work Phone: [facility] 02-09-2024 13:00-0400 Systolic blood pressure 134 mm[Hg] Pam Ley APRN-[employer] Work Phone: [facility] 12-15-2023 14:51-0500 Body height 165.1 cm Pam Ley APRN-BARTOLO Work Phone: [facility] 12-15-2023 14:51-0500 Body mass index (BMI) [Ratio] 31.02 kg/m2 Pam Ley APRN-[employer] Work Phone: [facility] 12-15-2023 14:51-0500 Body temperature 98.29 [degF] Pam Ley APRN-BARTOLO Work Phone: [facility] 12-15-2023 14:51-0500 Body weight 84.54 kg Pam Ley APRN-[employer] Work Phone: [facility] 12-15-2023 14:51-0500 Diastolic blood pressure 60 mm[Hg] Pam Ley APRN-[employer] Work Phone: [facility] 12-15-2023 14:51-0500 Heart rate 89 /min Pma Ley APRN-[employer] Work Phone: [facility] 12-15-2023 14:51-0500 SaO2% (BldA) [Mass fraction] 94 % Pam Ley APRN-[employer] Work Phone: [facility] 12-15-2023 14:51-0500 Systolic blood pressure 100 mm[Hg] Pam Ley APRN-[employer] Work Phone: [facility] 11-25-2023 13:56-0500 Body height 165.1 cm Rambo Muñoz MD Work Phone: [facility] 11-25-2023 13:56-0500 Body mass index (BMI) [Ratio] 31.45 kg/m2 Rambo Muñoz MD Work Phone: [facility] 11-25-2023 13:56-0500 Body temperature 99 [degF] Rambo Muñoz MD Work Phone: [facility] 11-25-2023 13:56-0500 Body weight 85.73 kg Rambo Muñoz MD Work Phone: [facility] 11-25-2023 13:56-0500 Diastolic blood pressure 57 mm[Hg] Rambo Muñoz MD Work Phone: [facility] 11-25-2023 13:56-0500 Heart rate 65 /min Rambo Muñoz MD Work Phone: [facility] 11-25-2023 13:56-0500 Respiratory rate 16 /min Rambo Muñoz MD Work Phone: [facility] 11-25-2023 13:56-0500 SaO2% (BldA) [Mass fraction] 91 % Rambo Muñoz MD Work Phone: [facility] 11-25-2023 13:56-0500 Systolic blood pressure 141 mm[Hg] Rambo Muñoz MD Work Phone: [facility] 01-13-2023 07:13-0500 Body temperature 98.01 [degF] Luna Daniels MD Work Phone: [facility] 01-13-2023 07:13-0500 Diastolic blood pressure 54 mm[Hg] Luna Daniels MD Work Phone: [employer] 01-13-2023 07:13-0500 Heart rate 57 /min Luna Daniels MD Work Phone: [facility] 01-13-2023 07:13-0500 Respiratory rate 18 /min Luna Daniels MD Work Phone: [facility] 01-13-2023 07:13-0500 SaO2% (BldA) [Mass fraction] 98 % Luna Daniels MD Work Phone: [facility] 01-13-2023 07:13-0500 Systolic blood pressure 141 mm[Hg] Luna Daniels MD Work Phone: [facility] 12-11-2022 07:58-0500 Body temperature 98.8 [degF] Luna Daniels MD Work Phone: [facility] 12-11-2022 07:58-0500 Diastolic blood pressure 56 mm[Hg] Luna Daniels MD Work Phone: [employer] 12-11-2022 07:58-0500 Heart rate 85 /min Luna Daniels MD Work Phone: [employer] 12-11-2022 07:58-0500 Respiratory rate 16 /min Luna Daniels MD Work Phone: [employer] 12-11-2022 07:58-0500 SaO2% (BldA) [Mass fraction] 97 % Luna Daniels MD Work Phone: [facility] 12-11-2022 07:58-0500 Systolic blood pressure 156 mm[Hg] Luna Daniels MD Work Phone: [facility] 12-07-2022 11:44-0500 Body height 165.1 cm Luna Daniels MD Work Phone: [employer] 12-07-2022 11:44-0500 Body mass index (BMI) [Ratio] 34.61 kg/m2 Luna Daniels MD Work Phone: [facility] [employer] 12-07-2022 11:44-0500 Body weight 94.35 kg Luna Daniels MD Work Phone: [facility] [employer] 11-24-2022 11:44-0500 Body height 165.1 cm [facility] 11-24-2022 11:44-0500 Body mass index (BMI) [Ratio] 34.95 kg/m2 St[facility] [employer] 11-24-2022 11:44-0500 Body temperature 98.4 [degF] Stv B [employer] 11-24-2022 11:44-0500 Body weight 95.25 kg [facility] [employer] [facility] 11-24-2022 11:44-0500 Diastolic blood pressure 45 mm[Hg] [facility] [employer] [facility] 11-24-2022 11:44-0500 Heart rate 60 /min Stv B [employer] 11-24-2022 11:44-0500 Respiratory rate 15 /min Stv [facility] [employer] 11-24-2022 11:44-0500 SaO2% (BldA) [Mass fraction] 93 % Stv B [employer] 11-24-2022 11:44-0500 Systolic blood pressure 131 mm[Hg] Stv [facility] [employer] Encounters Encounter Date Encounter Type Care Provider Facility Start: 02-29-2024 ambulatory [facility] Start: 02-27-2024 End: 02-29-2024 Emergency department patient visit [facility] Start: 02-18-2024 End: 02-19-2024 ambulatory RAMBO MU[facility]OZ [facility] Start: 02-09-2024 End: 02-10-2024 ambulatory [facility] Start: 02-09-2024 End: 02-09-2024 ambulatory [facility] Start: 02-09-2024 End: 02-09-2024 Office outpatient visit 25 minutes [facility] Ley ROTARY OPERATOR-[employer] Work Phone: [facility] - [facility] Comment on above: Acute cystitis witho ut hematuria (Primary Dx); Urge incontinence of urine Start: 01-10-2024 End: 01-11-2024 ambulatory SIMEON QUILES [facility] Start: 01-04-2024 Refill Rambo Muñoz MD Work Phone: [facility] - Medical Oncology Comment on above: 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, unspecified estrogen receptor status ([facility]-H[facility]) Start: 12-15-2023 End: 12-15-2023 ambulatory [facility] Start: 12-15-2023 End: 12-15-2023 Office outpatient visit 25 minutes [facility] Ley ROTARY OPERATOR-[employer] ST[employer]LIST Work Phone: [facility] Comment on above: Upper respiratory tr act infection, unspecified type (Primary Dx); Normal pressure hydrocephalus ([facility]-HCC); Moderate episode of recurrent major depressive disorder ([facility]-H[facility]); PVD (peripheral vascular disease) ([facility]); 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 mellitus ([facility]); Stage 3b chronic kidney disease ([facility]); Major depressive disorder in partial remission, unspecified whether recurrent ([facility]); Essential hypertension; GERD without esophagitis; 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 ([facility]-H[facility]) Start: 12-06-2023 Refill Pamtona carrizalesashkan ROTARY OPERATOR-[employer]LIST Work Phone: [facility] - [facility] Comment on above: Insomnia, unspecifie d type Start: 11-25-2023 End: 11-25-2023 ambulatory RAMBO MUÑOZ [facility] Start: 11-25-2023 End: 11-25-2023 Office outpatient visit 25 minutes Rambo Muñoz MD Work Phone: [facility] - [facility] On[facility] Comment on above: 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, unspecified estrogen receptor status (CMS-HCC) (Primary Dx); 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 breast in female, estrogen receptor positive (CMS-HCC) Start: 03-23-2023 End: 03-24-2023 ambulatory [facility] Start: 01-13-2023 End: 01-16-2023 ambulatory NAMRATA BLAIR [facility] Start: 01-13-2023 End: 01-15-2023 Subsequent hospital visit by physician Luna Daniels MD Work Phone: [id number] Observation Comment on above: Arrived Severe aortic valve stenosis (Primary Dx); Type 2 diabetes mellitus with diabetic neuropathy, with long-term current use of insulin ([facility]); Tremors of nervous system; Family history of coronary arteriosclerosis; CHELSEA (obstructive sleep apnea) nonadherent with cpap; Stage 3a chronic kidney disease ([facility]); Coronary artery disease involving [place] coronary artery of [place] heart without angina pectoris Aortic valve stenosi s, etiology of cardiac valve disease unspecified Start: 12-07-2022 End: 12-11-2022 ambulatory LUNA DANIELS [facility] Start: 12-07-2022 End: 12-11-2022 Subsequent hospital visit by physician Luna Daniels MD Work Phone: [facility] 5A Stepdown Comment on above: Severe aortic valve stenosis (Primary Dx) Start: 11-24-2022 End: 11-25-2022 ambulatory FLIP JHA [facility] Start: 11-24-2022 End: 11-24-2022 Subsequent hospital visit by physician Stmino Auto Inspector Daryl Marte [facility] Auto Inspector Comment on above: Canceled (Case zulay lled) Start: 09-28-2022 End: 09-30-2022 Evaluation and management of inpatient CADEN SANCHEZ [facility] Start: 03-31-2022 End: 04-01-2022 ambulatory [facility] Facility[facility] Start: 03-26-2021 End: 03-27-2021 ambulatory ELIZABETH TOMLINSON [facility] Start: 03-24-2021 End: 03-25-2021 ambulatory [facility]AKESHIA [facility] Start: 03-24-2021 End: 03-24-2021 Subsequent hospital visit by physician Caden [facility] Start: 03-19-2021 End: 03-20-2021 ambulatory PAM LEY Facility: Procedures Date Procedure Procedure Detail Performing Clinician Start: 02-09-2024 Urnls dip stick/tabl et rgnt non-auto w/o micrscp Pam Ley ROTARY OPERATOR-SALON STYLIST Work Phone: Start: 02-09-2024 Adult depression scr eening assessment Pam Mcneilillo ROTARY OPERATOR-[employer] ST[employer] Work Phone: Start: 12-15-2023 Adult depression scr eening assessment Pam Mcneilillo ROTARY OPERATOR-[employer]AL[employer] STYLIST Work Phone: Start: 11-25-2023 Follow-up visit Follow-up RAMBO MUÑOZ Start: 08-17-2023 Adult depression scr eening assessment Rambo Muñoz MD Work Phone: Start: 01-13-2023 Brncdilat rspse spmt ry pre&post-brncdilat admn Namrata Blair ROTARY OPERATOR - [employer] Work Phone: Start: 01-13-2023 Ct angiography chest w/contrast/noncontrast Namrata Blair ROTARY OPERATOR - [employer] Work Phone: Start: 12-11-2022 Glucose blood reagent strip Luna Daniels MD Work Phone: Start: 12-10-2022 Glucose blood reagent strip Luna Daniels MD Work Phone: Start: 12-10-2022 Glucose blood reagent strip Luna Daniels MD Work Phone: Start: 12-10-2022 Glucose blood reagent strip Luna Daniels MD Work Phone: Start: 12-10-2022 Basic metabolic pane l calcium total Rita Leos ROTARY OPERATOR - [employer] Work Phone: Start: 12-10-2022 Antibody screen Luna morales MD Work Phone: Start: 12-10-2022 End: 12-10-2022 Glucose blood reagent strip Luna Daniels MD Work Phone: Start: 12-09-2022 End: 12-09-2022 Blood count hemoglobin Luna Daniels MD Work Phone: Start: 12-09-2022 Glucose blood reagent strip Luna Daniels MD Work Phone: Start: 12-09-2022 End: 12-09-2022 Transfusion of packed red blood cells Radha Alcantar CNP Work Phone: Start: 12-09-2022 Glucose blood reagent [...] 03-24-2021 Assay of blood/uric acid Lakeshia Farias ROTARY OPERATOR - [employer] Work Phone: Plan of Treatment Date Care Activity Detail Author Start: 12-15-2024 Adult BMI Follow Up Plan Adult BMI F ollow Up Plan [facility] Start: 12-15-2024 Adult BMI Screening Adult BMI Screen ing [facility] Start: 12-15-2024 Depression Screening Depression Scre [facility] Start: 12-15-2024 Fall Risk Screening Fall Risk Screen ing [facility] Start: 12-15-2024 Tobacco Screening Tobacco Screening [facility] Start: 11-25-2024 Adult BMI Screening Adult BMI Screen ing [facility] Start: 09-28-2024 Tobacco Screening Tobacco Screening [facility] Start: 08-31-2024 Adult BMI Follow Up Plan Adult BMI F ollow Up Plan [facility] Start: 08-17-2024 Depression Screening Depression Scre ening [facility] Start: 08-10-2024 Fall Risk Screening Fall Risk Screen ing [facility] Start: 08-10-2024 Medicare Annual Well ness Visit Medicare Annual Wellness Visit [facility] Start: 03-09-2024 End: 03-09-2024 Patient encounter procedure 03/09/2024 3:15 PM EDT Office Visit Stephany Landaverde [facility] On[facility] [address] [place] [id number] Rambo Muñoz MD [address] [facility] [address] [place] [address] Stephany Landaverde [facility] - [facility] Start: 01-13-2024 End: 01-13-2024 Patient encounter procedure 01/13/2024 1:00 PM EST Office Visit [facility] [address] [place] [id number] Pam Ley, ROTARY OPERATOR-SALON STYLIST [address] [place] [address] [facility] Start: 09-02-2023 Lipid panel [facility] Start: 02-02-2023 End: 02-02-2023 Patient encounter procedure 02/02/2023 Appointment IP Unit [facility] Auto [facility] Start: 01-18-2023 End: 01-14-2024 Basic metabolic 2000 panel - Serum or Plasma Basic Metabolic Panel Lab STAT Severe aortic valve stenosis Expected: 01/18/2023, Expires: 01/14/2024 [facility] Phone: Comment on above: Expected: 01/18/2023 , Expires: 01/14/2024 Start: 12-17-2022 End: 12-10-2023 Basic metabolic 2000 panel - Serum or Plasma Basic Metabolic Panel Lab Routine Severe aortic valve stenosis Expected: 12/17/2022, Expires: 12/10/2023 [facility] Phone: Comment on above: Expected: 12/17/2022 , Expires: 12/10/2023 Start: 12-17-2022 End: 12-10-2023 Hemoglobin and Hematocrit Hemoglobin and Hematocrit Lab Routine Severe aortic valve stenosis Expected: 12/17/2022, Expires: 12/10/2023 [facility] Phone: Comment on above: Expected: 12/17/2022 , Expires: 12/10/2023 Start: 09-28-2022 Annual Wellness Visi t (AWV) Annual Wellness Visit (AWV) [facility] Start: 07-16-2021 Influenza vaccination Flu vacc ine (Season Ended) [employer] Phone: Start: 04-01-2021 COVID-19 Vaccine (3 - Booster for Pfizer series) COVID-19 Vaccine (3 - Booster for Pfizer series) [facility] [employer] Start: 03-04-2021 COVID-19 Vaccine (3 - Pfizer risk series) COVID-19 Vaccine (3 - Pfizer risk series) [facility] [employer] Start: 1996 Shingles vaccine (1 of 2) Cuevas gles vaccine (1 of 2) [facility] Start: 1965 Administration of varicella zoster vaccine Zoster (Shingles) Vaccine (1 of 2) [facility] [employer] Start: 1965 DTaP,Tdap and Td Vac cines (1 - Tdap) DTaP,Tdap and Td Vaccines (1 - Tdap) [facility] [employer] Start: 1965 DTaP/Tdap/Td vaccine (1 - Tdap) DTaP/Tdap/Td vaccine (1 - Tdap) [facility] Start: 1964 Hepatitis C screening Hepatitis C sc reen [facility] [employer] Start: 1962 COVID-19 Vaccine (1) COVID-19 Vaccin e (1) [employer] Phone: Start: 1958 Depression Screen Depression Screen [facility] Start: 1946 Creatinine measurement Creatinine mo nitoring [employer] Phone: Start: 1946 Potassium monitoring Potassium monit oring [employer] Phone: End: 02-08-2025 Bacteria identified in Urine by Culture Urine culture (clean catch) Microbiology Routine Acute cystitis without hematuria 1 Occurrences starting 02/09/2024 until 02/08/2025 [place] Phone: Comment on above: 1 Occurrences starti ng 02/09/2024 until 02/08/2025 End: 12-07-2022 Blood Bank Specimen [facility] Phone: Comment on above: Once for 1 Occurrenc es starting 12/07/2022 until 12/07/2022 End: 11-25-2024 Cancer antigen 15-3 Cancer antigen 15-3 Lab Routine 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 female breast, unspecified estrogen receptor status (CMS-HCC) every 3 months for 50 Occurrences starting 11/25/2023 until 11/25/2024 [employer] Comment on above: every 3 months for 5 0 Occurrences starting 11/25/2023 until 11/25/2024 End: 11-25-2024 Cancer antigen 27-29 Cancer antigen 27-29 Lab Routine 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 female breast, unspecified estrogen receptor status (CMS-HCC) every 3 months for 50 Occurrences starting 11/25/2023 until 11/25/2024 [employer] Comment on above: every 3 months for 5 0 Occurrences starting 11/25/2023 until 11/25/2024 End: 11-24-2022 Catheterization and angiography procedure details panel Cardiac Catheterization Cardiac Cath Routine One Time for 1 Occurrences starting 11/24/2022 until 11/24/2022 [facility] Phone: Comment on above: One Time for 1 Occur rences starting 11/24/2022 until 11/24/2022 End: 12-07-2022 Catheterization and angiography procedure details panel Cardiac Catheterization Cardiac Cath Routine One Time for 1 Occurrences starting 12/07/2022 until 12/07/2022 [facility] Phone: Comment on above: One Time for 1 Occur rences starting 12/07/2022 until 12/07/2022 End: 11-25-2024 CBC W Auto Differential panel - Blood CBC with auto diff Lab Routine 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 female breast, unspecified estrogen receptor status (CMS-HCC) every 3 months for 50 Occurrences starting 11/25/2023 until 11/25/2024 [email or web address] Work Phone: Comment on above: every 3 months for 5 0 Occurrences starting 11/25/2023 until 11/25/2024 End: 11-25-2024 Comprehensive metabolic 2000 panel - Serum or Plasma Comprehensive metabolic panel Lab Routine 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 female breast, unspecified estrogen receptor status ([facility]) every 3 months for 50 Occurrences starting 11/25/2023 until 11/25/2024 [employer] Comment on above: every 3 months for 5 0 Occurrences starting 11/25/2023 until 11/25/2024 End: 01-13-2023 CT CARDIAC W C STC MORP CARD ONLY [facility] Phone: Comment on above: 1 Occurrences starti ng 01/13/2023 until 01/13/2023 End: 12-07-2022 EKG 12 lead EKG 12 lead ECG Routine One Time for 1 Occurrences starting 12/07/2022 until 12/07/2022 [facility] Phone: Comment on above: One Time for 1 Occur rences starting 12/07/2022 until 12/07/2022 Glucose [Mass/volume ] in Serum or Plasma POCT glucose Point of Care Testing Routine 4X Daily (AC & HS) until discontinued starting 12/07/2022 [facility] Phone: Comment on above: 4X Daily (AC & HS) u ntil discontinued starting 12/07/2022 End: 12-10-2022 Hemoglobin and Hematocrit Hemoglobin and Hematocrit Lab STAT Post Transfusion Post Transfusion Post Transfustion for 1 Occurrences starting 12/09/2022 until 12/10/2022 [facility] Phone: Comment on above: Post Transfusion Pos t Transfusion Post Transfustion for 1 Occurrences starting 12/09/2022 until 12/10/2022 Oxygen therapy [[facility] Data Set] Initiate Oxygen Therapy Protocol Respiratory Care Routine As Needed until discontinued starting 11/24/2022 [facility] Phone: Comment on above: As Needed until disc ontinued starting 11/24/2022 Oxygen therapy [[facility] [employer] Data Set] Initiate Oxygen Therapy Protocol Respiratory Care Routine As Needed until discontinued starting 12/07/2022 [facility] Phone: Comment on above: As Needed until disc ontinued starting 12/07/2022 Oxygen therapy [M[facility] Data Set] Initiate Oxygen Therapy Protocol Respiratory Care Routine As Needed until discontinued starting 12/07/2022 [employer] Comment on above: As Needed until disc ontinued starting 12/07/2022 End: 11-24-2022 POC CHEM8 INCLUDES CALC. ANION GAP POC CHEM8 INCLUDES CALC. ANION GAP Point of Care Testing STAT One Time for 1 Occurrences starting 11/24/2022 until 11/24/2022 [facility] Phone: Comment on above: One Time for 1 Occur rences starting 11/24/2022 until 11/24/2022 End: 12-07-2022 POC CHEM8 INCLUDES CALC. ANION GAP POC CHEM8 INCLUDES CALC. ANION GAP Point of Care Testing STAT One Time for 1 Occurrences starting 12/07/2022 until 12/07/2022 [facility] Phone: Comment on above: One Time for 1 Occur rences starting 12/07/2022 until 12/07/2022 End: 12-07-2022 PREPARE RBC (CROSSMATCH), 1 Units PREPARE RBC (CROSSMATCH), 1 Units Blood Bank STAT Once for 1 Occurrences starting 12/07/2022 until 12/07/2022 [facility] Phone: Comment on above: Once for 1 Occurrenc es starting 12/07/2022 until 12/07/2022 End: 12-08-2022 PREPARE RBC (CROSSMATCH), 1 Units PREPARE RBC (CROSSMATCH), 1 Units Blood Bank Routine Once for 1 Occurrences starting 12/08/2022 until 12/08/2022 [facility] Phone: Comment on above: Once for 1 Occurrenc es starting 12/08/2022 until 12/08/2022 End: 12-09-2022 PREPARE RBC (CROSSMATCH), 1 Units PREPARE RBC (CROSSMATCH), 1 Units Blood Bank Routine Once for 1 Occurrences starting 12/09/2022 until 12/09/2022 [employer] Work Phone: Comment on above: Once for 1 Occurrenc es starting 12/09/2022 until 12/09/2022 End: 12-08-2022 PREVIOUS SPECIMEN [employer] Work Phone: Comment on above: Once for 1 Occurrenc es starting 12/08/2022 until 12/08/2022 Immunizations Immunization Date Immunization Notes Care Provider [facility] 08-10-2023 Influenza Vaccine, Quadrivalent, Adjuvanted Rambo Muñoz MD Work Phone: [facility] 08-06-2022 Influenza Vaccine, Quadrivalent, Adjuvanted Rambo Muñoz MD Work Phone: [facility] 08-27-2021 influenza, high dose seasonal, preservative-free Rambo Muñoz MD Work Phone: [facility] 05-28-2021 pneumococcal conjuga te vaccine, 13 valent Rambo Muñoz MD Work Phone: [facility] 02-04-2021 COVID-19, mRNA, LNP- S, PF, 30mcg/0.3mL Dose Rambo Muñoz MD Work Phone: [facility] 01-07-2021 COVID-19, mRNA, LNP- S, PF, 30mcg/0.3mL Dose Rambo Muñoz MD Work Phone: [facility] 11-25-2020 influenza, injectabl e, quadrivalent, preservative free Rambo Muñoz MD Work Phone: [facility] 08-30-2020 Influenza, High-dose , Quadrivalent Rambo Muñoz MD Work Phone: [facility] 09-14-2019 influenza, injectabl e, quadrivalent, contains preservative Rambo Muñoz MD Work Phone: [facility] 09-11-2019 influenza, injectabl e, quadrivalent, preservative free Rambo Muñoz MD Work Phone: [facility] 08-31-2018 influenza, injectabl e, quadrivalent, preservative free Rambo Muñoz MD Work Phone: [facility] 09-07-2017 influenza, injectabl e, quadrivalent, preservative free Rambo Muñoz MD Work Phone: [facility] 07-10-2015 pneumococcal polysaccharide vaccine, 23 valent Rambo Muñoz MD Work Phone: [facility] Payers Date Payer Category Payer Medicare [id number] 2022 Medicare [facility] MEDICARE ANTH MEDICARE ADVANTAGE [id number] 2022-Present [phone] [address] [place] [address] [id number] 2022 Medicare [id number] 2022 Medicaid MEDICAID [facility] EDICAID [id number] 2022-Present [phone] [address] [place] [address] [id number] 2018 Medicare [id number] 2017 Unknown [id number] 2016 Medicaid [id number] 2011 Medicare [id number] 1959 Medicaid [id number] 1946 Unknown [id number] 1946 Unknown [id number] [id number]7 1946 Unknown [id number] 2.16.840.1.038665.3.579.2.175 1946 Unknown [id number] 2.16.840.1.855192.3.579.2.175 1946 Unknown [id number] 2.16.840.1.106217.3.579.2.175 1946 Unknown [id number] 2.16.840.1.794223.3.579.2.175 1946 Unknown [id number] 2.16.840.1.935476.3.579.2.175 1946 Unknown [id number] 2.16.840.1.065336.3.579.2.175 1946 Unknown [id number] 2.16.840.1.545512.3.579.2.175 1946 Unknown [id number] 2.16840.1.880773.3.579.2. 1946 Unknown [id number] 2.16.840.1.932861.3.579.2.1285 1946 Unknown [id number] 2.16.840.1.922493.3.579.2.1285 1946 Unknown [id number] 2.16.840.1.426655.3.579.2.1285 1946 Unknown [id number] 2.840.1.968215.3.579.2.1285 1946 Unknown [id number] 2.16.840.1.300741.3.579.2.1285 1946 Unknown [id number] 2.16.840.1.417936.3.579.2.1285 1946 Unknown [id number] 2.16.840.1.386034.3.579.2.1285 1946 Unknown [id number] 2.16.840.1.329646.3.579.2.1285 1946 Unknown [id number] 2.16.840.1.246218.3.579.2.1286 1946 Unknown [id number] Social History Date Type Detail Facility Start: 10-15-2014 End: 10-05-2022 Tobacco smoking status NHIS Never smoker [employer] Start: 10-15-2014 End: 02-09-2024 Alcohol intake Current non-drinker of alcohol (finding) [facility] Phone: Start: 10-02-2014 Alcohol Comment occaisional [employer] Phone: Start: 1945 Sex Assigned At Not on file [employer] Phone: Start: 11-14-2022 End: 12-07-2022 Exposure to SARS-CoV-2 (event) Not sure [facility] [employer] Start: 10-05-2022 Tobacco use and exposure [facility]ok[facility] Start: 10-05-2022 End: 02-09-2024 History of Social function [facility] Start: 10-05-2022 End: 02-09-2024 Social connection and isolation panel [facility] Do you belong to any clubs or organizations such as yazidi groups, unions, fraternal or athletic groups, or school groups? Yes [facility] Are you now , , , , never or living with a partner? Never [facility] How often to you hav e a drink containing alcohol? Never [facility] How many standard dr inks containing alcohol do you have on a typical day? Patient does not drink [facility] Do you feel stress - tense, restless, nervous, or anxious, or unable to sleep at night because your mind is troubled all the time - these days [OSQ] Not at all [facility] Start: 03-21-2020 Gender identity Identifies as female gender (finding) [facility] Start: 10-05-2022 Sexual orientation Heterosexual (finding) [facility] Medical Equipment Procedure Code Equipment Code Equipment Origin al Text Equipment Identifier Dates Valve Aor Evolut Fx 26mm - [id number] - [id number] Start: 08-17-2023 Monitor blood wahl gars four times daily and as needed [id number] Start: 10-11-2020 USE FOUR TIMES A DAY. ICD 10 E11.29 [id number] Start: 08-31-2022 4 applicators by miscellaneous route See Admin Instructions. 4 times daily injection [id number] Start: 04-21-2021 Goals Date Patient Goal Desired [...] on stairs Contact your local community or [facility] for information on exercise, fall prevention programs, or options for improving home safety. Personal health goal Comment on above: Formatting of this n ote might be different from the original. Evaluation of progress towards goal: Safe dc transition to SNF pending clinical course. Clinical Notes 03-20-2021 to 02-09-2024 KAIDEN Werner - 02/09/2024 1:00 PM EDTLISA Werner [employer]ON STYLIST - 12/15/2023 3:00 PM Jan Muñoz MD - 11/25/2023 2:30 PM ESTPatient Instructions Note Date & Type Note Facility 02-09-2024 History of Present illness Narrative Images from the original note were not included. [address] [place] [id number] SUBJECTIVE: Patient ID: Cuca Goodwin is a 78 y.o. female. Chief Complaint Patient presents with incontinence Accompanied by daughter today Urine is cloudy, increased incontinence. Concerns for reoccurrence of UTI. Patient was hospitalized at [facility] in September 2023 for UTI. Uses [...] 10/17/2019 Performed by Sang Bell DO at [facility] HYSTEROSCOPY DILATION CURETTAGE MYOSURE N/A 01/29/2021 Performed by Jv Briones MD at [facility] INJECTION BLOCK EPIDURAL CAUDAL STEROID N/A 08/14/2022 Performed by Arnulfo Gonzalez MD at [facility] INJECTION BLOCK EPIDURAL CAUDAL STEROID N/A 06/06/2021 Performed by Arnulfo Gonzalez MD at [facility] INJECTION BLOCK EPIDURAL CAUDAL STEROID N/A 04/25/2021 Performed by Arnulfo Gonzalez MD at [facility] CAUDAL EPIDURAL WITH CATHETER, STEROID N/A 05/03/2020 Performed by Arnulfo Gonzalez MD at [facility] INJECTION CAUDAL EPIDURAL WITH CATHETER, STEROID N/A 11/24/2019 Performed by Arnulfo Gonzalez MD at [facility] CAUDAL EPIDURAL WITH CATHETER, STEROID N/A 04/21/2019 Performed by Arnulfo Gonzalez MD at [facility] MEDIAL BRANCH NERVE BLOCK Bilateral L 4/5, 5/1 Bilateral 08/18/2019 Performed by Arnulfo Gonzalez MD at [facility] MEDIAL BRANCH NERVE BLOCK Bilateral L 4/5, 5/1 Bilateral 06/23/2019 Performed by Arnulfo Gonzalez MD at [facility] STEROID EPI 1 WITH SEDATION Right L 4, 5 NR Right 03/17/2019 Performed by Arnulfo Gonzalez MD at [facility] STEROID EPI 1 WITH SEDATION: right L45 nroot Right 08/15/2018 Performed by Arnulfo Gonzalez MD at [facility] LEFT L4, AND 5 NERVE ROOT INJECTION 2 OF 2 Left 07/22/2018 Performed by Arnulfo Gonzalez MD at [facility] LEFT L4, AND L5 NERVE ROOT 1 OF 2 Left 07/04/2018 Performed by Arnulfo Gonzalez MD at [facility] PERCUTANEOUS CORONARY INTERVENTION SHUNT INSERTION TONSILLECTOMY AGE 4 Transcutaneous aortic valve replacement/Transfemoral/Kwan N/A 08/17/2023 Performed by Chava Norris MD at [facility] Valvuloplasty aortic N/A 06/03/2023 Performed by Chava Norris MD at [facility] Past Medical History: Diagnosis Date Anemia Arthritis Asthma very mild, no inhaler use Cataract Dental disease Depression Diabetes mellitus ([facility]) Diabetes mellitus type 2, controlled ([facility]) Encephalitis Foot fracture, left GERD (gastroesophageal reflux disease) Heart murmur HLD (hyperlipidemia) Hypertension Incontinence Injury of back Insulin dependent diabetes mellitus Kidney failure STAGE 4 Lumbar spondylolysis Murmur Obesity CHELSEA (obstructive sleep apnea) no machine Peptic ulceration Peripheral vascular disease ([facility]) Shortness of breath TIA (transient ischemic attack) [...] Werner 02/09/24 1420 documented in this encounter [facility] 12-15-2023 History of Present illness Narrative Images from the original note were not included. [address] [facility] [id number] SUBJECTIVE: Patient ID: Cuca Goodwin is a [...] 10/17/2019 Performed by Sang Bell DO at [facility] HYSTEROSCOPY DILATION CURETTAGE MYOSURE N/A 01/29/2021 Performed by Jv Briones MD at [facility] INJECTION BLOCK EPIDURAL CAUDAL STEROID N/A 08/14/2022 Performed by Arnulfo Gonzalez MD at [facility] INJECTION BLOCK EPIDURAL CAUDAL STEROID N/A 06/06/2021 Performed by Arnulfo Gonzalez MD at [facility] INJECTION BLOCK EPIDURAL CAUDAL STEROID N/A 04/25/2021 Performed by Arnulfo Gonzalez MD at [facility] INJECTION CAUDAL EPIDURAL WITH CATHETER, STEROID N/A 05/03/2020 Performed by Arnulfo Gonzalez MD at [facility] INJECTION CAUDAL EPIDURAL WITH CATHETER, STEROID N/A 11/24/2019 Performed by Arnulfo Gonzalez MD at [facility] INJECTION CAUDAL EPIDURAL WITH CATHETER, STEROID N/A 04/21/2019 Performed by Arnulfo Gonzalez MD at [facility] MEDIAL BRANCH NERVE BLOCK Bilateral L 4/5, 5/1 Bilateral 08/18/2019 Performed by Arnulfo Gonzalez MD at [facility] INJECTION MEDIAL BRANCH NERVE BLOCK Bilateral L 4/5, 5/1 Bilateral 06/23/2019 Performed by Arnulfo Gonzalez MD at [facility] INJECTION STEROID EPI 1 WITH SEDATION Right L 4, 5 NR Right 03/17/2019 Performed by Arnulfo Gonzalez MD at [facility] INJECTION STEROID EPI 1 WITH SEDATION: right L45 nroot Right 08/15/2018 Performed by Arnulfo Gonzalez MD at [facility] LEFT L4, AND 5 NERVE ROOT INJECTION 2 OF 2 Left 07/22/2018 Performed by Arnulfo Gonzalez MD at [facility] LEFT L4, AND L5 NERVE ROOT 1 OF 2 Left 07/04/2018 Performed by Arnulfo Gonzalez MD at [facility] PERCUTANEOUS CORONARY INTERVENTION SHUNT INSERTION TONSILLECTOMY AGE 4 Transcutaneous aortic valve replacement/Transfemoral/Kwan N/A 08/17/2023 Performed by Chava Norris MD at [facility] Valvuloplasty aortic N/A 06/03/2023 Performed by Chava Norris MD at [facility] Past Medical History: Diagnosis Date Anemia Arthritis Asthma very mild, no inhaler use Cataract Dental disease Depression Diabetes mellitus ([facility]) Diabetes mellitus type 2, controlled ([facility]) Encephalitis Foot fracture, left GERD (gastroesophageal reflux disease) Heart murmur HLD (hyperlipidemia) Hypertension Incontinence Injury of back Insulin dependent diabetes mellitus Kidney failure STAGE 4 Lumbar spondylolysis Murmur Obesity CHELSEA (obstructive sleep apnea) no machine Peptic ulceration Peripheral vascular disease ([facility]) Shortness of breath TIA (transient ischemic attack) [...] needed (cough and congestion). Normal pressure hydrocephalus (CMS-HCC) Moderate episode of recurrent major depressive disorder (CMS-HCC) PVD (peripheral vascular disease) (CMS-HCC) 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) - gabapentin (NEURONTIN) 300 mg capsule; Take 1 capsule (300 mg total) by mouth in the morning and 1 capsule (300 mg total) before bedtime. Stage 3b chronic kidney disease ([facility]) Major depressive disorder in partial remission, unspecified whether recurrent ([facility]) - sertraline (ZOLOFT) 100 mg tablet; Take [...] stage 3b chronic kidney disease and hypertension ([facility]) - SITagliptin phosphate (JANUVIA) 50 mg tablet; Take 1 tablet (50 mg total) by mouth in the morning. Type 2 DM -Managed by endocrine in [place] She believes her A1c is below 7% [...] for sore throat. Tylenol as needed per relationship consultant guidelines for fever or pain. Body mass [...] Werner 12/15/23 1559 documented in this encounter [facility] 11-25-2023 History of Present illness Narrative Images from the original note were not included. [facility] 11/25/23 Cuca Goodwin is a 78 y.o. year old female seen today in the oncology clinic. Chief Complaint Patient presents with Follow-up History of Present Illness: Mrs. Goodwin is a 78 y.o. female with history of aortic valve stenosis, she had PCI earlier in the year at [facility] for coronary disease. during the [...] Cataract Dental disease Depression Diabetes mellitus ([facility]) Diabetes mellitus type 2, controlled ([facility]) Encephalitis Foot fracture, left GERD (gastroesophageal reflux disease) Heart murmur HLD (hyperlipidemia) Hypertension Incontinence Injury of back Insulin dependent diabetes mellitus Kidney failure STAGE 4 Lumbar spondylolysis Murmur Obesity CHELSEA (obstructive sleep apnea) no machine Peptic ulceration Peripheral vascular disease ([facility]) Shortness of breath TIA (transient ischemic attack) Upper respiratory infection UTI (urinary tract infection) Visual impairment Wears dentures Past Surgical History: Procedure Laterality Date BREAST BIOPSY Right 03/01/2023 ULT BIOPSY CATARACT EXTRACTION SECTION SECTION 03/14/1974 EGD N/A 10/17/2019 Performed by Sang Bell DO at [facility] HYSTEROSCOPY DILATION CURETTAGE MYOSURE N/A 01/29/2021 Performed by Jv Briones MD at [facility] INJECTION BLOCK EPIDURAL CAUDAL STEROID N/A 08/14/2022 Performed by Arnulfo Gonzalez MD at [facility] INJECTION BLOCK EPIDURAL CAUDAL STEROID N/A 06/06/2021 Performed by Arnulfo Gonzalez MD at [facility] INJECTION BLOCK EPIDURAL CAUDAL STEROID N/A 04/25/2021 Performed by Arnulfo Gonzalez MD at [facility] INJECTION CAUDAL EPIDURAL WITH CATHETER, STEROID N/A 05/03/2020 Performed by Arnulfo Gonzalez MD at [facility] INJECTION CAUDAL EPIDURAL WITH CATHETER, STEROID N/A 11/24/2019 Performed by Arnulfo Gonzalez MD at [facility] INJECTION CAUDAL EPIDURAL WITH CATHETER, STEROID N/A 04/21/2019 Performed by Arnulfo Gonzalez MD at [facility] MEDIAL BRANCH NERVE BLOCK Bilateral L 4/5, 5/1 Bilateral 08/18/2019 Performed by Arnulfo Gonzalez MD at [facility] INJECTION MEDIAL BRANCH NERVE BLOCK Bilateral L 4/5, 5/1 Bilateral 06/23/2019 Performed by Arnulfo Gonzalez MD at [facility] INJECTION STEROID EPI 1 WITH SEDATION Right L 4, 5 NR Right 03/17/2019 Performed by Arnulfo Gonzalez MD at [facility] INJECTION STEROID EPI 1 WITH SEDATION: right L45 nroot Right 08/15/2018 Performed by Arnulfo Gonzalez MD at [facility] LEFT L4, AND 5 NERVE ROOT INJECTION 2 OF 2 Left 07/22/2018 Performed by Arnulfo Gonzalez MD at [facility] LEFT L4, AND L5 NERVE ROOT 1 OF 2 Left 07/04/2018 Performed by Arnulfo Gonzalez MD at [facility] PERCUTANEOUS CORONARY INTERVENTION SHUNT INSERTION TONSILLECTOMY AGE 4 Transcutaneous aortic valve replacement/Transfemoral/Kwan N/A 08/17/2023 Performed by Chava Norris MD at [facility] Valvuloplasty aortic N/A 06/03/2023 Performed by Chava Norris MD at [facility] Family History Problem Relation [...] min Stress: No Stress Concern Present (10/05/2022) [employer] - Occupational Stress Questionnaire Feeling of Stress : Not at all Social Connections: Moderately Isolated (10/05/2022) Social Connection and Isolation Panel [NHANES] Frequency of Communication with Friends and Family: Never Frequency of Social Gatherings with Friends and Family: Never Attends Temple Services: More than 4 times per year [...] without long-term current use of insulin ([facility]) Signed by: KAIDEN Santana Monitor blood sugars four times daily and as needed clopidogreL 75 mg tablet Refills: 0 Dose: 75 mg Commonly known as: PLAVIX COMFORT EZ PEN NEEDLES 32 gauge x 5/16 needle Quantity: 200 each Refills: 6 For diagnoses: Type 2 diabetes mellitus with stage 4 chronic kidney disease, with long-term current use of insulin ([facility]) Dose: 4 applicator Signed by: KAIDEN Santana 4 applicators, miscellaneous, See admin instructions, 4 times daily injection Generic drug: pen needle, diabetic DEXCOM G6 HYDROPULPER OPERATOR misc Refills: 0 Dose: 1 Device Generic drug: blood-glucose meter,continuous DEXCOM G6 SENSOR device Refills: 0 Generic drug: blood-glucose sensor gabapentin 300 mg capsule Quantity: 180 capsule Refills: 1 Doctor's comments: 90 Day Supply. 1 refill For diagnoses: 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 mellitus ([facility]) Dose: 300 mg Signed by: KAIDEN Santana 300 mg, oral, 2 times daily Commonly known as: NEURONTIN hydroCHLOROthiazide 25 mg tablet Refills: 0 Dose: 25 mg Commonly known as: HYDRODIURIL insulin lispro 100 unit/mL insulin pen Refills: 0 For diagnoses: Mixed diabetic hyperlipidemia associated with type 2 diabetes mellitus ([facility]) Dose: 2 Units Signed by: RONNA Solis [...] without long-term current use of insulin ([facility]) Signed by: KAIDEN Santana Monitor blood sugars four times daily and as needed Commonly known as: onetouch ultrasoft * ONETOUCH DELICA PLUS LANCET 33 gauge misc Refills: 0 Generic drug: lancets letrozole 2.5 mg chemo tablet Quantity: 90 tablet Refills: 3 For diagnoses: 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 female breast, unspecified estrogen receptor status ([facility]) Dose: 2.5 mg Signed by: Dr. Rambo Muñoz MD 2.5 mg, oral, Daily Commonly known as: FEMARA LEVEMIR FLEXPEN 100 unit/mL (3 mL) insulin pen Quantity: 30 mL Refills: 3 For diagnoses: Controlled type 2 diabetes mellitus with diabetic nephropathy, without long-term current use of insulin ([facility]) Signed by: KAIDEN Santana INJECT 30 UNITS UNDER THE SKIN NIGHTLY Generic drug: insulin detemir U-100 metoprolol succinate XL 25 mg 24 hr tablet Quantity: 90 tablet Refills: 2 For diagnoses: Essential hypertension, Athscl heart disease of [place] coronary artery w/o ang pctrs Dose: 25 [...] without esophagitis Dose: 40 mg Signed by: Pam Ley, ROTARY OPERATOR-SALON STYLIST 40 mg, oral, Daily Commonly known as: PROTONIX sertraline 100 mg tablet Quantity: 90 tablet Refills: 1 For diagnoses: Major depressive disorder in partial remission, unspecified whether recurrent ([facility]) Dose: 100 mg Signed by: LISA SantanaSALON STYLIST 100 mg, oral, Daily Commonly known as: ZOLOFT SITagliptin phosphate 50 mg tablet Quantity: 90 tablet Refills: 1 For diagnoses: Diabetes mellitus type 2, insulin dependent ([facility]), 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 ([facility]) Dose: 50 mg Signed by: LISA SantanaSALON STYLIST 50 mg, oral, Daily Commonly known as: JANUVIA traZODone 100 mg tablet Quantity: 90 tablet Refills: 1 For diagnoses: Insomnia, unspecified type Signed by: KAIDEN Santana TAKE 1 TABLET BY MOUTH EVERY DAY [...] to ensure the accuracy of this automated contracts paralegal, some errors in contracts paralegal may have occurred. CC: Patient Care Team: KAIDEN Werner as PCP - General (Family Medicine) Simeon Quiles MD (Nephrology) KAIDEN Hsu as Nurse Practitioner (Pulmonary Medicine) Madison Ye MD as Referring Physician (Endocrinology, Diabetes & Metabolism) Rambo Muñoz MD as Consulting Physician (Hematology) PCP:Pam Ley Referring MD: Pam Ley AP* documented in this encounter [facility] 11-25-2023 Instructions Rambo Muñoz MD - 11/25/2023 2:30 PM EST Pet SCAN 02/2024. F/u in late 02/2024 to review results. Continue femara alone. Labs before appt: CBC, CMP, CA 15-3, CA 27.29. 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 History of present illness: Return visit for NPH status post OUTBOARD MOTOR ASSEMBLER shunt. Had MRI thoracic and lumbar spine done at [facility] last week due to concern for [...] Medications: acetaminophen amLODIPine aspirin atorvastatin blood-glucose meter [facility] cefuroxime cholecalciferol (vitamin D3) clopidogrel Dexcom G6 Sensor device ferrous sulfate FreeStyle Kartik 14 Day Nebo mis FreeStyle Kartik 14 Day Sensor kit furosemide gabapentin hydroCHLOROthiazide insulin lispro lancets [facility] letrozole Levemir FlexPen insulin pen melatonin capsule metoprolol succinate XL metoprolol tartrate miscellaneous medical supply [facility] mupirocin ONETOUCH ULTRA BLUE TEST STRIP [facility] OneTouch Ultra Test strip oxybutynin oxybutynin XL [...] sugar diagnostic (ONETOUCH ULTRA BLUE TEST STRIP MISC), OneTouch Ultra Blue Test Strip, Disp: , [...] FreeStyle Kartik reader (FreeStyle Kartik 14 Day Nebo) misc, FreeStyle Kartik 14 Day Nebo, Disp: , Rfl: FreeStyle Kartik sensor system [...] (U-100) Insulin 10 (more content not included)... [facility] 12-11-2022 History of Present illness Narrative Patient discharged home. Discharge instructions were explained and given to the patient, patient verbalized understanding. All belongings were sent with the patient. No signs of acute distress noted, no concerns voiced. Physical Therapy Facility/Department: [address] [facility] Therapy Name: Cuca Goodwin : 1945 [...] 0935 Time Out 1000 Minutes 25 Sasha Maldonado PT Physical Therapy Facility/Department: [address] [facility] Daily Treatment Note NAME: Cuca [...] from the original note were not included. [place] Collar Stitcher Progress Note Date: 12/09/2022 Patient name: Cuca [...] a max pressure of: 12 graciela. [place] 3.0 x 12 CÉSAR. 1 inflation(s) to [...] 182 cm. Number of passes: 1. [place] 2.5 x 12 CÉSAR. 1 inflation(s) to [...] stable. Plans for TAVR work-up as OP [place] Collar Stitcher [facility]. [phone] Physical Therapy Facility/Department: [address] [facility] Physical Therapy Initial Assessment Name: [...] pt repositioned in bed for comfort upon selling underwriter's exit. Subjective Subjective: RN and pt [...] rollator at baseline) Transfer Assistance: Independent Active Web Assistant: No Mode of Transportation: Friends, Cab Occupation: [...] able to sit EOB CGA AM-PAC Score AM-[facility] Inpatient Mobility Raw Score : 21 (12/08/221455) [...] from the original note were not included. [place] Collar Stitcher Progress Note Date: 12/08/2022 Patient name: Cuca [...] a max pressure of: 10 graciela. [place] 2.5 x 12 CÉSAR. 1 inflation(s) to [...] a max pressure of: 12 graciela. [place] 3.0 x 12 CÉSAR. 1 inflation(s) to [...] stable Plans for TAVR work-up as OP [place] Collar Stitcher [facility]. [phone] Packaging Clerk discussed the next step in the TAVR process, an appointment with the cardiothoracic surgeon, with patient and daughter at bedside in [facility]. Office number given to daughter, she will call to schedule in the next couple days. Packaging Clerk's contact number also given. Patient declined AM [...] Manual pressure held Manual pressure held per selling underwriter for [address] Martinez at bedside to assess. Order for POC H & H received. Hemaglobin 6.9. Stat lab draw ordered. Dr Martinez at bedside to assess. Order for LLE vascualr scan received. 1 Patient admitted, consent signed and questions answered. Patient ready for procedure. Call light to reach with side rails up 2 of 2. Bilateral groin areas clipped with selling underwriter and Maggi estrada present. Daughter Ismael at bedside with patient. History and physical needs updated. Received post cardiac cath procedure to [facility] room 10. Assessment obtained. Restrictions reviewed with patient. Post procedure pathway initiated. Right site noted to have small hematoma, manual pressure held by [place]. Band aid dry and intact. Family at side. Patient without complaints. Head of bed flat with right leg straight. documented in this encounter [employer] [facility] [employer] Work Phone: 12-07-2022 Note [facility] Vascular Lower Extremities Arterial Duplex Procedure Patient Name CHRISTA Date of Study 12/07/2022 CUCA Date of 1945 Gender Female Age 77 year(s) Race Room Number 0501 Height: 65 inch, 165.1 cm Corporate ID # [id number] Weight: 208 pounds, 94.3 kg Patient BSA: 2.01 m^2 BMI: 34.61 kg/m^2 MR # [id number] Computer Processing Scheduler Whit Gan RVT Interpreting Physician Darnell Monique [...] ! ! +---------++-----+-----+------+--- -+------++---+-----+------+----+-- -------+ [facility] 11-24-2022 History of Present illness Narrative Patient admitted, consent signed and questions answered. Patient ready for procedure. Call light to reach with side rails up 2 of 2. Bilateral groin areas clipped with selling underwriter and Jose PIERRE present. Daughter Ileana at bedside with patient. History and physical needs updated. documented in this encounter [employer] Phone: 03-20-2021 Note PROCEDURE: XR FOOT L T MIN 3 VIEWS COMPARISON: None. HISTORY: Pain FINDINGS: BONES:No acute fracture or dislocation. Persistent flexion of the toes limits their evaluation. Mild to moderate degenerative changes with joint space narrowing and marginal osteophyte formation, most significant at the first metatarsophalangeal joint where [id number] endplate is observed SOFT TISSUES:Negative. No visible soft tissue swelling. EFFUSION:None visible. OTHER: Negative. IMPRESSION: Moderate degenerative changes, no acute fracture Electronically authenticated by: GIOVANNY NICOLE Date: 2021-03-20 08:29 [facility] Evaluation note Diagnosis Severe aortic valve stenosis- Primary Aortic valve disorders documented in this encounter [employer] Phone: evaluation note* Diagnosis RAIN (acute kidney injury) (HCC)- Primary Acute kidney failure, unspecified documented in this encounter [employer] Phone: [email or web address] note* Diagnosis Severe aortic valve stenosis- Primary [...] kidney disease (HCC) Coronary artery disease involving [place] coronary artery of [place] heart without angina pectoris documented in this encounter [facility] [employer] Phone: evaluation note* Diagnosis Aortic valve stenosis, etiology of cardiac valve disease unspecified documented in this encounter [facility] [employer] Phone: evaluation note* Diagnosis Aortic valve stenosis, etiology of cardiac valve disease unspecified documented in this encounter [facility] [employer] Phone: evaluation note* Diagnosis 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 female breast, unspecified estrogen receptor status ([facility])- Primary documented in this encounter [facility] [employer] SystemEvaluation note* Diagnosis Insomnia, unspecified type documented in this encounter [facility] SystemEvaluation note* Diagnosis Upper respiratory tract infection, unspecified type- Primary Normal pressure hydrocephalus ([facility]) 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 ([facility]) PVD (peripheral vascular disease) ([facility]) Unspecified peripheral vascular disease 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 mellitus ([facility]) Stage 3b chronic kidney disease ([facility]) Major depressive disorder in partial remission, unspecified whether recurrent ([facility]) Essential hypertension Unspecified essential hypertension GERD without esophagitis Esophageal reflux 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 ([facility]) documented in this encounter [facility] System[facility] note* Diagnosis 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 female breast, unspecified estrogen receptor status ([facility]) documented in this encounter [facility] SystemEvaluation note* Diagnosis Acute cystitis without hematuria- Primary Urge incontinence of urine Urge incontinence [facility]* Attachments The following attachments cannot be sent through Care Everywhere. * PCI (Percutaneous Coronary Intervention): Post-op ([place]) [facility] [employer] Phone: InstructionsNot on filedocumented in this encounter [facility] SystemInstructions* Attachments The following attachments cannot be sent through Care Everywhere. * Bacterial Upper Respiratory Infection, Adult ([place] African) documented in this encounterPro[facility] CenterZigi Games Ltd SystemInstructionsNot on file [facility]* Attachments The following attachments cannot be sent through Care Everywhere. * Urinary Tract Infection Discharge Instructions, Adult ([place]) [facility] Advance Directives No Advanced Directives Records FoundDocuments on File Type Date Recorded Patient Radiotelegrapher Expl anation ACP-Advance Directive ACP-Power of Jukebox Operator Latest Code Status on File Code Status [...] Documents on File Type Date Recorded Patient Radiotelegrapher Expl anation ACP-Advance Directive 12/14/2022 2:27 PM Latest Code Status on File Code Status Date Activated Date Inactivated Comments Full Code 12/07/2022 11:24 AM 12/11/2022 1:10 PM Full Code 11/24/2022 11:19 AM 11/25/2022 2:46 AM Full Code 09/28/2022 4:15 AM 09/30/2022 6:37 PM Full Code 10/15/2014 1:49 PM 10/15/2014 8:39 PM Documents on File Type Date Recorded Patient Radiotelegrapher Expl anation ACP-Advance Directive 12/14/2022 2:27 PM Latest Code Status on File Code Status Date Activated Date Inactivated Comments Full Code 12/07/2022 11:24 AM 12/11/2022 1:10 PM Documents on File Type Date Recorded Patient Radiotelegrapher Expl anation Durable Power of Jukebox Operator 10/21/2022 2:24 PM DNR Physician Order 10/21/2022 2:24 PM Living Will 01/30/2021 12:07 PM Durable Power of Jukebox Operator 01/30/2021 12:07 PM Living Will 01/29/2021 6:19 AM Advance Directive 01/29/2021 6:18 AM DNR Physician Order 11/03/2019 1:27 PM Latest Code Status on File Code Status Date Activated Date Inactivated Comments Full Code 03/28/2023 5:07 PM 04/01/2023 3:32 PM Code Status History Code Status Date Activated Date Inactivated Comments DNR Comfort Care Arrest (DNR-CCA) [place] 10/06/2022 8:43 AM 10/06/2022 8:41 PM Full [...] W C STC MORP CARD ONLY Namrata Blair ROTARY OPERATOR - SALON STYLIST [address] [place] [address] Referral ID Status Reason Start Date Expiration Date Visits Re quested Visits Authorized [id number] Closed 01/11/2023 04/10/2023 1 1 Specialty Diagnoses / Procedures Referred By Contac t Referred To Contact Radiology Diagnoses Aortic valve stenosis, etiology of cardiac valve disease unspecified Procedures CTA CHEST ABDOMEN PELVIS W CONTRAST Namrata Blair, ROTARY OPERATOR - SALON STYLIST [address] [place] [address] Referral ID Status Reason Start Date Expiration Date Visits Re quested Visits Authorized [id number] Closed 01/11/2023 04/10/2023 1 1 Additional Source Comments INFORMATION SOURCE (unrecogn ized section and content) DATE CREATED AUTHOR 03/27/2021 [facility] DATE CREATED AUTHOR AUTHOR'S ORGANIZ ATION 04/09/2021 [facility] DATE CREATED AUTHOR AUTHOR'S ORGANIZ ATION 04/06/2022 [facility] DATE CREATED AUTHOR AUTHOR'S ORGANIZ ATION 01/22/2023 [facility] DATE CREATED AUTHOR AUTHOR'S ORGANIZ ATION 02/12/2024 [facility] DATE CREATED AUTHOR AUTHOR'S ORGANIZ ATION 02/20/2024 [facility] DATE CREATED AUTHOR AUTHOR'S ORGANIZ ATION 02/28/2024 [facility] DATE CREATED AUTHOR AUTHOR'S ORGANIZ ATION 03/01/2024 [facility] Reason for Visit (unrecogniz ed section and content) Specialty Diagnoses / Procedures Referred By Contac t Referred To Contact [facility] [address] [place] [address] Referral ID Status Reason Start Date Expiration Date Visits Re quested Visits Authorized [id number] 1 1 Referral ID Status Reason Start Date Expiration Date Visits Re quested Visits Authorized [id number] 1 1 Specialty Diagnoses / Procedures Referred By Contac t Referred To Contact Radiology Diagnoses Aortic valve stenosis, etiology of cardiac valve disease unspecified Procedures CT CARDIAC W C STC MORP CARD ONLY Namrata Blair, ROTARY OPERATOR - SALON STYLIST [address] [place] [address] Referral ID Status Reason Start Date Expiration Date Visits Re quested Visits Authorized [id number] Closed 01/11/2023 04/10/2023 1 1 Specialty Diagnoses / Procedures Referred By Contac t Referred To Contact Radiology Diagnoses Aortic valve stenosis, etiology of cardiac valve disease unspecified Procedures CTA CHEST ABDOMEN PELVIS W CONTRAST Namrata Blair, ROTARY OPERATOR - [employer]ON STYLIST [address] [place] [address] Referral ID Status Reason Start Date Expiration Date Visits Re quested Visits Authorized [id number] Closed 01/11/2023 04/10/2023 1 1 Reason Comments Follow-up Reason Onset Date Comments Med Refill 12/06/2023 Reason Comments Cough Nasal Congestion Reason Comments Med Refill Reason Comments incontinence Care Teams (unrecognized sec tion and content) Telecommunications Project Manager Relationship Specialty Start Date End Date Caden Sanchez PCP - [facility] 09/29/22 Telecommunications Project Manager Relationship Specialty Start Date End Date Caden Sanchez PCP - [facility] 09/29/22 Telecommunications Project Manager Relationship Specialty Start Date End Date Caden Sanchez PCP - [facility] 09/29/22 Telecommunications Project Manager Relationship Specialty Start Date End Date Caden Sanchez PCP - [facility] 09/29/22 Telecommunications Project Manager Relationship Specialty Start Date End Date Cdaen Sanchez PCP - [facility] 09/29/22 Telecommunications Project Manager Relationship Specialty Start Date End Date Pam Ley, ROTARY OPERATOR - [employer] ST[employer]LIST [address] [place] [address] PCP - General 01/15/23 Telecommunications Project Manager Relationship Specialty Start Date End Date Pam Ley ROTARY OPERATOR - [employer] [address] [place] [address] PCP - General 01/15/23 Telecommunications Project Manager Relationship Specialty Start Date End Date Pam Ley ROTARY OPERATOR-[employer]LIST [address] [place] [address] PCP - General Family Medicine 09/28/23 Telecommunications Project Manager Relationship Specialty Start Date End Date Pam Ley ROTARY OPERATOR-[employer]YLIST [address] [place] [address] PCP - General Family Medicine 09/28/23 Telecommunications Project Manager Relationship Specialty Start Date End Date Pam Ley ROTARY OPERATOR-[employer] STYLIST [address] [place] [address] PCP - General Family Medicine 09/28/23 Telecommunications Project Manager Relationship Specialty Start Date End Date Pam Ley, ROTARY OPERATOR-[employer] STYLIST [address] [place] [address] PCP - General Family Medicine 09/28/23 Ordered [...] Until Discontinued 925 (Given - Provider: Jacqueline Medina RN) 801 (Given - Provider: Jacqueline Medina, GABBY) 08 (Given - Provider: Stefanie Lu, GABBY) atorvastatin (LIPITOR) tablet 80 mg 80 mg, Oral, NIGHTLY, First dose on Wed12/07/22 at 2100, Until Discontinued 2024 (Given - Provider: Tamika Villavicencio RN) 1956 (Given - Provider: Libia Lyons, GABBY) 2099 (Due) clopidogrel (PLAVIX) tablet 75 mg 75 mg, Oral, DAILY, First dose on Wed12/08/22 at 0900, Until Discontinued 925 (Given - Provider: Jacqueline Medina RN) 801 (Given - Provider: Jacqueline Medina, GABBY) [...] (cold, hot or room temperature) then drink 2124 (Given - Provider: Tamika Villavicencio RN) sertraline (ZOLOFT) tablet 100 mg 100 mg, Oral, DAILY, First dose on Wed12/07/22 at 1645, Until Discontinued 09 (Given - Provider: Jacqueline Medina, GABBY) 08 (Given - Provider: Jacqueline Medina RN) 0846 (Given - Provider: Stefanie Lu, GABBY) [...] Tamika Villavicencio RN)1301 (Stopped - Provider: Tamika Villavicencio, RN)1849 (New Bag - Provider: Jacqueline Medina, GABBY)1954 (New Bag - Provider: Tamika Villavicencio RN) [...] Recovery(Cath) 0947 (Given - Provider: Jacqueline Medina, GABBY) bisacodyl (DULCOLAX) EC tablet 10 mg 10 [...] IntraVENous, at 75 mL/hr, CONTINUOUS, Starting on Wed01/13/23 at 0730, For 9 hours, Please hydrate pt for [address] and 6 hours post imaging. Hydration to start at 0730, CT imaging planned for 1030. Fany PIERRE will be bringing pt back and for the from 3C to [facility] as needed for addt'l testing throughout the [...] BE BASED ON THE PRIMARY CLINICAL RECORDS. [facility] provides no warranty or guarantee of the accuracy or completeness of information in this document.
--- NOTE | 2024-03-01 10:49 | CM.DCFOLLOWU ---
03/01- 2nd attempt. No answer
--- NOTE | 2024-03-03 11:14 | CM.DCFOLLOWU ---
03/03- 3rd attempt. No answer
--- NOTE | 2024-03-06 15:36 | CM.DCFOLLOWU ---
03/06- 3rd attempt no answer
== END 2024-02-28 16:25 | disposition home health service (06) ==
LOC: ER 14:49 → MS 02-28 14:33
PROVIDERS: Admitting Provider Internal Medicine; Emergency Provider Emergency Medicine; PCP Nurse Practitioner; Visit Provider Nurse Practitioner
DX: I63.9 Cerebral infarction, unspecified (principal); I12.9 Hypertensive chronic kidney disease with stage 1 through stage 4 chronic kidney disease, or unspecified chronic kidney disease; E11.22 Type 2 diabetes mellitus with diabetic chronic kidney disease; N18.30 Chronic kidney disease, stage 3 unspecified; E78.5 Hyperlipidemia, unspecified; E04.1 Nontoxic single thyroid nodule; M48.54XA Collapsed vertebra, not elsewhere classified, thoracic region, initial encounter for fracture; D63.1 Anemia in chronic kidney disease; C50.919 Malignant neoplasm of unspecified site of unspecified female breast; C79.51 Secondary malignant neoplasm of bone; M19.90 Unspecified osteoarthritis, unspecified site; J45.909 Unspecified asthma, uncomplicated; I73.9 Peripheral vascular disease, unspecified; G47.33 Obstructive sleep apnea (adult) (pediatric); F32.A Depression, unspecified; K21.9 Gastro-esophageal reflux disease without esophagitis; Z95.3 Presence of xenogenic heart valve; Z86.73 Personal history of transient ischemic attack (TIA), and cerebral infarction without residual deficits; Z98.890 Other specified postprocedural states; Z79.899 Other long term (current) drug therapy; Z79.4 Long term (current) use of insulin; Z79.82 Long term (current) use of aspirin; K27.9 Peptic ulcer, site unspecified, unspecified as acute or chronic, without hemorrhage or perforation
CPT/HCPCS: 36415; 70450; 70496; 70498; 80053; 80061; 81001; 82607; 82948; 83036; 83735; 84443; 84484; 85025; 85610; 85730; 93005; 93306; 93880; 94761; 96372; 97161; 97165; 99285; G0378; Q3014; Q9967

== ENCOUNTER 2024-04-05 21:39 | Inpatient (IN) | payer MEDICARE, SELFPAY ==
[2024-04-05] VITALS (14 sets, daily range): BP systolic 121–153; BP diastolic 57–60; PULSE 78–90; TEMP 37.3–37.5; O2SAT 93–99; BMI 31.5
--- NOTE | 2024-04-05 21:45 | XR_ITS ---
The [address] [address] Patient Name: TERESA GOODWIN MRN: [id number] date: 1945 Sex: F Assigned Patient Location: ER Current Patient Location: ER Accession/Order Number: [id number] Exam Date: 04/05/2024 22:00 Report Date: 04/05/2024 23:01 At the request of: LILLIAM MARKER Procedure: XR chest 2V EXAM: XR chest 2V HISTORY: fever, cough COMPARISON: Chest x-ray 09/30/2023 TECHNIQUE: 2 views chest x-rays frontal and lateral FINDINGS: Mild patchy airspace opacities at the bilateral infrahilar lower lungs. Enlarged cardiac silhouette and mildly prominent bilateral pulmonary vasculature. TAVR. No large pleural effusion, pneumothorax, or acute bony abnormality. Right shunt catheter across the right chest wall is seen. XR/XR chest 2V IMPRESSION: Mild patchy airspace opacities at the bilateral infrahilar lower lungs are concerning for pneumonitis although superimposed pulmonary edema can also give this appearance. Recommend close clinical attention for the etiology. Enlarged cardiac silhouette and mildly prominent bilateral pulmonary vasculature. Recommend close clinical attention for any signs and symptoms of cardiopulmonary congestion. Electronically authenticated by: RADHA YBARRA Date: 04/05/2024 23:01
--- OUTSIDE RECORDS SUMMARY | 2024-04-05 21:54 | XMS_ITS | CCD ---
Author Organization [facility] Team Providers Care Hairpiece Stylist Name Role Phone Caden Sanchez Primary Care [...] Caden Sanchez Primary Care Provider Unavaildeshawn Ley PRODUCT SCIENTIST - BAG HANGER, Pam De La Rosa Primary Care Prov [...] Attending Unavailable MARITZA MIDDLETON Admitting Unavailable Ley PRODUCT 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 HANGER, Pam De La Rosa Primary Care Provid er PAM LEY Referring Unavailable LYE, PAM De La Rosa Primary Care Unavailable LEY, PAM De La Rosa Attending Unavailable LEY, PAM De La Rosa Referring Unavailable LEY, PAM De La Rosa Primary Care Unavailable LEY, APM De La Rosa Primary Care Unavailable LEY, PAM De La Rosa Referring Unavailable LEY, PAM De La Rosa Primary Care Unavailable LEY, PAM De La Rosa Attending Unavailable LEY, PAM De La Rosa Referring Unavailable LEY, PAM Estrella Primary Care Unavailable LEY, PAM De La Rosa Attending Unavailable LEY, PAM De La Rosa Referring Unavailable LEY, PAM De La Rosa Primary Care Unavailable RAMBO MUÑOZ Referring Unavailable LEY, PAM De La Rosa Primary Care Unavailable TONI, RAMBO Bernard Attending Unavailable LEY, PAM De La Rosa Referring Unavailable LEY, PAM De La Rosa Primary Care Unavailable TONI, RAMBO Bernard Attending Unavailable LEY, PAM De La Rosa Referring Unavailable LEY, PAM De La Rosa Primary Care Unavailable SIMEON QUILES Referring Unavailable LEY, PAM J Primary Care Unavailable OVITT, VALE Attending Unavailable OVITT, VALE Referring Unavailable OVITT, VALE Referring Unavailable OVITT, VALE Referring Unavailable OVITT, VALE Referring Unavailable OVITT, VALE Referring Unavailable OVITT, VALE Attending Unavailable Allergies Allergy Classification Reported Allergen(s) Allergy Type Date of Onset Reaction(s) Facility (1 source) 90006,00 Drug allergy (disorder) 01-23-2020 [facility] Repository Medications Current Medications Medication [...] nephropathy, without long-term current use of insulin ([facility]) Monitor blood sugars four times daily and [...] the morning. 0 09/29/2022 Active DEXCOM G6 SEWING MACHINE REPAIRER HELPER misc (5 sources) Start: 05-06-2023 DEXCOM G6 SEWING MACHINE REPAIRER HELPER misc 1 Device by drain unit route See Admin Instructions. 0 05/06/2023 Active dextromethorphan hydrobromide 1.5 mg/ml / pyrilamine maleate 1.5 mg/ml oral solution (3 sources) Uncompetitive E-eataqp-W-asparta te Receptor Antagonist, Sigma-1 Agonist Start: 12-15-2023 [...] due to type 2 diabetes mellitus (CMS-HCC) Take 1 capsule (300 mg total) by [...] pen injector (13 sources) Insulin Analog Start: 10-17-2 023 insulin detemir U-100 (LEVEMIR FLEXPEN) 100 unit/mL (3 mL) insulin pen Indications: Controlled type 2 diabetes mellitus with diabetic nephropathy, without long-term current use of insulin ([facility]) INJECT 30 UNITS UNDER THE SKIN NIGHTLY [...] hyperlipidemia associated with type 2 diabetes mellitus ([facility]) Inject 2 Units under the skin 4 [...] right female breast, unspecified estrogen receptor status ([facility]) TAKE 1 TABLET BY MOUTH EVERY DAY [...] (5 sources) Start: 01-01-[address] 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 Recovery(Cath) take 2 tablets by mo uth every six hours as needed for pain [...] injecti on 4 mg polyethylene glycol 3350 07420 mg powder for oral solution (1 source) [...] coronary artery; Translations: [Atherosclerotic heart disease of [place] coronary artery without angina pectoris] Onset: 1 [...] 8 10-26-2018 Chronic Other aftercare (2 sources) warp spooler (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; Translations: [INSTRUCTOR ROBOTICS CURRENT USE OF INSULIN] Onset: 1 Episodic Other aftercare (1 source) Other alf (current) drug therapy; Translations: [[facility] CURRENT 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] Onset: 1 Episodic Other circulatory disease (6 sources) History of angioplasty; Translations: [Peripheral vascular angioplasty status with implants and grafts] Onset: 3 12-07-2022 Chronic Other circulatory disease (1 source) Other specified symptoms and signs involving the circulatory and respiratory systems; Translations: [Other specified symptoms and signs involving the circulatory and respiratory systems] Onset: 4 Episodic Other lower respiratory disease (2 sources) Shortness [...] 12-06-2023 Episodic Residual codes; unclassified (1 source) Insomnia, unspecified; Translations: [Insomnia, unspecified] Onset: 4 Episodic Residual codes; unclassified (1 source) Pain, [...] Test Name Value Interpretation Reference Range Facility CT HEAD WO IV CONTRASTon CT HEAD WO IV CONTRAST STUDY: CT HEAD WITHOUT CONTRAST CLINICAL HISTORY: Normal pressure hydrocephalus.. COMPARISON: 03/31/2022 TECHNIQUE: CT head was performed without contrast utilizing 2.5 mm axial reconstruction with images reviewed in bone and brain windows. Automated exposure control was utilized. FINDINGS: Right frontal ventriculostomy terminates near the septum pellucidum. Progressive enlargement of the bifrontal diameter, 5.4 cm. Unchanged encephalomalacia along the right frontal and somewhat retracted. No territorial region of diminished villarreal-white fixation. No acute intracranial hemorrhage. Cerumen bilateral external auditory canals. Otherwise unremarkable temporal bone structures, visualized suprahyoid neck. Lens are placement. Unremarkable scalp soft tissues. IMPRESSION: Right frontal ventriculostomy terminates near septum pellucidum. Bifrontal diameter measures 5.4 cm, slightly increased since prior [when it measured 4.7 cm]. Please correlate clinically. All CT scans at this facility use dose modulation, iterative reconstruction, and/or weight based dosing when appropriate to reduce radiation dose to as low as reasonably achievable. Electronically signed: Eddi Tapia. [facility] Comment on above: Order Comment: In on e year, follow up ventricle size s/p DEAN OF GRADUATE STUDIES shunt Follow-Upon 03-16-2024 Follow-Up [id number] Jb Goodwin 1945 F Date Provider Department Center 03/16/2024 Elina-VALE BOWSER [facility] SURG Second Fl Family History Problem Relation Age of Onset Diabetes Mother Hypertension Father Coronary artery disease Father Family Status - Relation Status Age at Mother Father Level of Service:10857 PA OFFICE/OUTPATIENT ESTABLISHED MOD MDM 30 MIN Reason for Visit and Comments: Follow-up [090962] - Pt is here for a [address] up with CT/VPSS. [facility] 36on 02-28-2024 36 LVM with pt's daught er updating her on above mentioned. [facility] 36 Pt's daughter Isidoro arnett called stating that pt is currently admitted to [facility] for possible stroke. Ileana stated that pt's speech was slurred and right side of face was drooping. [place] is needing Shunt make and model numbers prior to MRI. I am unable to locate. [facility] PET CT SKULL TO THIGHon PET CT [...] Acevedo MD on 02/20/2024 6:48 PM Normal [facility] 36on 02-11-2024 36 Spoke with daughter. Daughter stated that she would like to keep CT and appt times as is. No further action needed. Normal [facility] 36on 02-10-2024 36 Pts daughter called in requesting if Pts appt could be moved up along with her CT to 03/06/24 due to traveling. Daughter states hse has an appt here at 2:45 Please Advise. Thank You [facility] Telephoneon 02-10-2024 Telephone [id number] Jb Goodwin fab Casas 1945 F Date Provider Department Center 02/10/2024 808-[facility]MAINP[facility] SURG Second Fl Family History Problem Relation Age of Onset Diabetes Mother Hypertension Father Coronary artery disease Father Family Status - Relation Status Age at Mother Father Normal [facility] POCT urinalysis dipstick onl yon 02-09-2024 Appearance (U) cloudy [facility] External Poct Urine Bilirubin Negative [facility] External Poct Urine Blood Trace [facility] External Poct Urine Color yellow [facility] External Poct Urine Glucose Negative [facility] External Poct Urine Ketones Negative [facility] External Poct Urine Leukocyte Esterase 2+ [facility] External Poct Urine Nitrite Positive [facility] External Poct Urine Ph 6.5 [facility] External Poct Urine Protein Trace [facility] External Poct Urine Specific [place] 1.020 [facility] External Poct Urine Urobilinogen 0.2 [facility] URINE CULTUREon 02-09-2024 Bacteria identified Cx Nom [...] TOBRAMYCIN S <=1 F TRIMETH/SULFAMETHOXAZOL E S <=/ F Susceptible [facility] Comment on above: Performed By: #### 6 30-4 #### [facility] ([id number]) [address], [address] [place] [address] 36on 02-07-2024 36 LVM for pt of upcomi ng CT/VPSS and follow up with Vale Bowser CNP. Reminder letter sent to pt's home. Normal [facility] ALBUMINon 01-10-2024 Albumin [Mass/Vol] 4.0 g/dL Normal 3.2-5.3 [facility] Comment on above: Performed By: #### C TIFFANY, BMP, 175-7, 56276-1, 2777-1, 2731-8, 39506-3 #### [facility] ([id number]) [address], [address] [place] [address] BASIC METABOLIC PANLon 01-10 Anion gap [Moles/Vol] 8 mmol/L Normal 5-15 [facility] Comment on above: Performed By: #### C TIFFANY, BMP, 1751-7, 19809-3, 2777-1, 2731-8, 92175-9 #### [facility] ([id number]) [address], [address] [place] [address] Calcium [Mass/Vol] 9.1 mg/dL Normal 8.5-10.5 [facility] Comment on above: Performed By: #### C BC, BMP, 1751-7, 48669-4, 2777-1, 2731-8, 63820-8 #### [facility] ([id number]) [address], [address] [place] [address] Chloride [Moles/Vol] 101 mmol/L Normal 98-109 [facility] Comment on above: Performed By: #### C BC, BMP, 175-7, 66520-6, 2777-1, 2731-8, 05411-0 #### [facility] ([id number]) [address], [address] [place] [address] CO2 [Moles/Vol] 29 mmol/L Normal 22-32 [facility] Comment on above: Performed By: #### C BC, BMP, 1750-7, 32236-4, 2777-1, 2731-8, 98457-1 #### [facility] ([id number]) [address], [address] [place] [address] Creatinine [Mass/Vol] 1.46 mg/dL High 0.40-1.00 [facility] Comment on above: Result Comment: METH OD TRACEABLE TO IDMS STANDARD Performed By: #### C BC, BMP, 1750-7, 97320-0, 2777-1, 2731-8, 98639-9 #### [facility] ([id number]) [address], [address] [place] [address] GFR/1.73 sq M.predicted among non-blacks MDRD (S/P/Bld) [Vol rate/Area] 37 mL/min/{1.73_m2} Low >59 [facility] Comment on above: Result Comment: Reported eGFR is based on the CKD-EPI 2020 equation that does not use a race coefficient. Performed By: #### C BC, BMP, 1750-7, 97111-5, 2777-1, 2731-8, 46707-1 #### [facility] ([id number]) [address], [address] [place] [address] Glucose [Mass/Vol] 300 mg/dL High 65-99 [facility] Comment on above: Performed By: #### C BC, BMP, 1750-7, 66998-9, 2777-1, 2731-8, 03202-7 #### [facility] ([id number]) [address], [address] [place] [address] Potassium [Moles/Vol] 4.4 mmol/L Normal 3.5-5.0 [facility] Comment on above: Performed By: #### C BC, BMP, 175-7, 82148-9, 2777-1, 2731-8, 83908-8 #### [facility] ([id number]) [address], [address] [place] [address] Sodium [Moles/Vol] 138 mmol/L Normal 134-146 [facility] Comment on above: Performed By: #### C BC, BMP, 1750-7, 99406-2, 2777-1, 273-8, 18483-9 #### [facility] ([id number]) [address], [address] [place] [address] Urea nitrogen [Mass/Vol] 26 mg/dL Normal 5-27 [facility] Comment on above: Performed By: #### C BC, BMP, 1750-7, 96621-7, 2777-1, 273-8, 10858-9 #### [facility] ([id number]) [address], [address] [place] [address] COMPLETE BLOOD COUNTon 01-10 Erythrocyte distribution width (RBC) [Ratio] 15.2 % High 11.5-15.0 [facility] Comment on above: Performed By: #### Rentia BC, BMP, 175-7, 70219-3, 2777-1, 2731-8, 12423-5 #### [facility] ([id number]) [address], [address] [place] [address] Hematocrit (Bld) [Volume fraction] 31.6 % Low 35-47 [facility] Comment on above: Performed By: #### C BC, BMP, 175-7, 92524-4, 2777-1, 2731-8, 83766-1 #### [facility] ([id number]) [address], [address] [place] [address] Hemoglobin (Bld) [Mass/Vol] 10.3 g/dL Low 11.7-15.5 [facility] Comment on above: Performed By: #### C BC, BMP, 1750-7, 16550-6, 2777-1, 273-8, 41625-6 #### [facility] ([id number]) [address], [address] [place] [address] MCH (RBC) [Entitic mass] 27.7 pg Normal 27-34 [facility] Comment on above: Performed By: #### Renita BC, BMP, 1750-7, 51392-6, 2776-1, 2730-8, 80496-9 #### [facility] ([id number]) [address], [address] [place] [address] MCHC (RBC) [Mass/Vol] 32.5 g/dL Normal 32-36 [facility] Comment on above: Performed By: #### Renita BC, BMP, 1751-05, 41743-7, 2776-1, 2730-8, 39761-2 #### [facility] ([id number]) [address], [address] [place] [address] MCV (RBC) [Entitic vol] 85 fL Normal 80-100 [facility] Comment on above: Performed By: #### Renita BC, BMP, 1750-7, 82269-1, 7-1, 273-8, 54021-0 #### [facility] ([id number]) [address], [address] [place] [address] Platelet mean volume (Bld) [Entitic vol] 8.5 fL Normal 7-12 [facility] Comment on above: Performed By: #### Renita BC, BMP, 1750-, 79426-9, 7-1, 273-8, 27737-0 #### [facility] ([id number]) [address], [address] [place] [address] Platelets (Bld) [#/Vol] 231 10*3/uL Normal 150-450 [facility] Comment on above: Performed By: #### Renita BC, BMP, 1750-7, 82371-2, 2777-1, 2731-8, 02264-7 #### [facility] ([id number]) [address], [address] [place] [address] RBC COUNT 3.70 X10E12/L Low 3.80-5.20 [facility] Comment on above: Performed By: #### Renita BC, BMP, 1750-7, 86154-5, 7-1, 2730-8, 34971-7 #### [facility] ([id number]) [address], [address] [place] [address] WBC (Bld) [#/Vol] 4.8 10*3/uL Normal 4.0-11.0 [facility] Comment on above: Performed By: #### Renita BC, BMP, 1750-, 65164-4, 7-1, 273-8, 14014-8 #### [facility] ([id number]) [address], [address] [place] [address] HGB A1C (GLYCO-HGB)on 2023 Glucose [Mass/Vol] 203 mg/dL Normal [facility] Comment on above: Performed By: #### Renita BC, BMP, 1750-7, 36726-7, 2777-1, 2731-8, 01470-1 #### [facility] ([id number]) [address], [address] [place] [address] HbA1c (Bld) [Mass fraction] 8.7 % High 4.4-5.6 [facility] Comment on above: Result Comment: NOTE ADA Guidelines Result HgbA1c Normal : less than 5.7 % Prediabetes : 5.7 % to 6.4 % Diabetes : > 6.4 % Use with caution in patients with abnormal hemoglobin variants as the half-life of red blood cells and in vivo glycation rates are affected. Performed By: #### Renita ALLEN, BMP, 1750-7, 14935-6, 2777-1, 2731-8, 38089-0 #### [facility] ([id number]) [address], [address] [place] [address] MAGNESIUMon 01-10-2024 Magnesium [Mass/Vol] 1.9 mg/dL Normal 1.8-2.6 [facility] Comment on above: Performed By: #### Renita ALLEN, WILSON, 7, 46885-0, 7-1, 2731-8, 36645-6 #### [facility] ([id number]) [address] [place] [address] PHOSPHORUSon 01-10-2024 Phosphate [Mass/Vol] 3.8 mg/dL Normal 2.4-4.9 [facility] Comment on above: Performed By: #### Renita ALLEN, BMP, 1750-7, 92064-5, 7-1, 2731-8, 83923-3 #### [facility] ([id number]) [address] [place] [address] Parathyrin.intact [Mass/Vol] on 01-10-2024 PTH INTACT 71 pg/mL Normal 12-88 [facility] Comment on above: Performed By: #### Renita ALLEN, BMP, 1750-7, 16416-7, 2776-1, 273-8, 31080-3 #### [facility] ([id number]) [address] [place] [address] Vitamin D+Metabolites [Mass/ Vol]on 01-10-2024 VITAMIN D 25 HYD TOT 38.9 ng/mL Normal 30-100 [facility] Comment on above: Result Comment: Vitamin D status 25 [place] Vitamin D Deficiency <20 ng/mL Insufficiency 20-29 ng/mL Sufficiency 30-100 ng/mL Toxicity >100 ng/mL NOTE: A pediatric reference range has not been established by the automobile accessories installer of this kit. The [place] [employer] recommends a Vitamin D level of = or >20ng/mL in infants and children. Performed By: #### C BC, BMP, 1751-7, 58039-3, 2777-1, 2731-8, 95701-3 #### [facility] ([id number]) [address] [place] [address] Follow-Upon 03-23-2023 Follow-Up [id number] Jb Goodwin 1945 F Date Provider Department Center 03/23/2023 VALE TAMAYO [facility] SURG Second Fl Family History Problem Relation Age of Onset Diabetes Mother Hypertension Father Coronary artery disease Father Family Status - Relation Status Age at Mother Father Level of Service:13325 PA OFFICE/OUTPATIENT ESTABLISHED LOW MDM 20-29 MIN Reason for Visit and Comments: Follow-up [206922] - shunt check s/p mri; Patient has been off balance. Normal [facility] CT CARDIAC W [facility] MORP CARD ONLYon 01-18-2023 CT CARDIAC W [facility] MORP CARD ONLY EXAMINATION: CT [...] valve measurements were analyzed and provided by [employer] and are reported separately to the cardiology department. 3. Severe triple-vessel coronary artery calcifications. 4. Small sliding hiatal hernia. Interpreted by: Brennan Parra MD Signed by: Brennan Parra MD 01/18/23 Final result Normal [facility] CTA CHEST ABDOMEN PELVIS W C [facility] 01-15-2023 CTA CHEST ABDOMEN PELVIS W CONTRAST [...] with a couple of ill-defined sclerotic foci. DEAN OF GRADUATE STUDIES shunt tubing in the right neck and [...] adenopathy. Very small fat containing umbilical hernia. DEAN OF GRADUATE STUDIES shunt tubing enters the abdomen in the [...] pelvis which may be related to the DEAN OF GRADUATE STUDIES shunt catheter. There is a cystic left [...] for planned (more content not included)... Normal [facility] No acute abnormality identified on CTA of [...] recommended. 5 mm subpleural right lung nodule. DEAN OF GRADUATE STUDIES shunt noted. Small hiatal hernia. The findings [...] Findings Committee. J Am Janel Radiol 2010;7:754-773 MH RIS CONSOLIDATED EXAMINATION: CTA OF THE CHEST, [...] with a couple of ill-defined sclerotic foci. DEAN OF GRADUATE STUDIES shunt tubing in the right neck and [...] adenopathy. Very small fat containing umbilical hernia. DEAN OF GRADUATE STUDIES shunt tubing enters the abdomen in the [...] pelvis which may be related to the DEAN OF GRADUATE STUDIES shunt catheter. There is a cystic left [...] in the left flank and gluteal regions. [facility] RIS CONSOLIDATED Ttao Syed MD - 01/15/2023 EXAMINATION: CTA OF [...] with a couple of ill-defined sclerotic foci. DEAN OF GRADUATE STUDIES shunt tubing in the right neck and [...] adenopathy. Very small fat containing umbilical hernia. DEAN OF GRADUATE STUDIES shunt tubing enters the abdomen in the [...] pelvis which may be related to the DEAN OF GRADUATE STUDIES shunt catheter. There is a cystic left [...] and gluteal regions. (more content not included)... [employer] Work Phone: CTA CHEST ABDOMEN PELVIS W C ONTRASTOrdered By: Tato Syed on 01-15-2023 [employer] Work Phone: PULMONARY FUNCTIONon 023 [address] FUN[address] [id number] PULMONARY FUNCTION PATIENT NAME: CUCA GOODWIN : 1945 MED REC NO: [id number] ROOM: ACCOUNT NO: [id number] ADMIT DATE: 01/13/2023 PROVIDER: Whit Maloney DATE [...] correlation is recommended. WHIT MALONEY [id number] Doc#: [id number] CC: Normal [facility] CTA CHEST ABDOMEN PELVIS W C [facility] 01-13-2023 Radiology Study observation (narrative) [facility]: POC Glucose Fingerstickon Glucose [Mass/Vol] 104 mg/dL 65 - 105 mg/dL [facility] [employer] Step-In [facility] Step-In Basic Metabolic Panelon 11-16 Anion gap [Moles/Vol] 11 mmol/L 9 - 17 mmol/L [facility] [employer] Step-In Calcium [Mass/Vol] 9.0 mg/dL 8.6 - 10. 4 mg/dL [facility] [employer] Step-In Chloride [Moles/Vol] 105 mmol/L 98 - 107 mmol/L [facility] Step-In CO2 [Moles/Vol] 20 mmol/L 20 - 31 mmol/L [facility] [employer] Step-In Creatinine [Mass/Vol] 1.04 mg/dL High 0.50 - 0.90 mg/dL [facility] [employer] Step-In GFR/1.73 sq M.predicted MDRD (S/P/Bld) [Vol rate/Area] 56 mL/min/{1.73_m2} Low - PINF [facility] Comment on above: These results [...] 131 mg/dL High 70 - 99 mg/dL [facility] Interpretation and review of laboratory results Abnormal [facility] Potassium [Moles/Vol] 4.3 mmol/L 3.7 - 5.3 mmol/L [facility] Sodium [Moles/Vol] 136 mmol/L 135 - 144 mmol/L [facility] Urea nitrogen (BldV) [Mass/Vol] 17 mg/dL 8 - 23 mg/dL [facility] Basic Metabolic Profon 12-10 Anion gap [Moles/Vol] 11 mmol/L Normal 9-17 [facility] Comment on above: Performed By: #### H H, BMPX #### [employer] [address] [place] [address] [id number] Ignition Expert: Luis Solis MD Calcium [Mass/Vol] 9.0 mg/dL Normal 8.6-10.4 [facility] Comment on above: Performed By: #### H H, BMPX #### [employer] [address] [place], [place] [id number] Ignition Expert: Luis Solis MD Chloride [Moles/Vol] 105 mmol/L Normal 98-107 [facility] Comment on above: Performed By: #### H H, BMPX #### [employer] [address] [place], [place] [id number] Ignition Expert: Luis Solis MD CO2 [Moles/Vol] 20 mmol/L Normal 20-31 [facility] Comment on above: Performed By: #### H H, BMPX #### [facility] [employer] [address] [place] [address] Ignition Expert: Luis Solis MD Creatinine [Mass/Vol] 1.04 mg/dL High 0.50-0.90 [facility] Comment on above: Performed By: #### H H, BMPX #### [address] [address] Ignition Expert: Luis Solis MD GFR/1.73 sq M.predicted among non-blacks MDRD (S/P/Bld) [Vol rate/Area] 56 mL/min/{1.73_m2} Low >60 [facility] Comment on above: Result Comment: These results [...] Performed By: #### H H, BMPX #### [address] [address] Ignition Expert: Luis Solis MD Glucose [Mass/Vol] 131 mg/dL High 70-99 [facility] Comment on above: Performed By: #### H H, BMPX #### [facility] [employer] [address] [place] [address] [phone] Ignition Expert: Luis Solis MD Potassium [Moles/Vol] 4.3 mmol/L Normal 3.7-5.3 [facility] Comment on above: Performed By: #### H H, BMPX #### [facility] [employer] [address] [place] [address] 80774 Ignition Expert: Luis Solis MD Sodium [Moles/Vol] 136 mmol/L Normal 135-144 [facility] Comment on above: Performed By: #### H H, BMPX #### [employer] [address] [place] [address] [phone] Ignition Expert: Luis Solis MD Urea nitrogen [Mass/Vol] 17 mg/dL Normal 8-23 [facility] Comment on above: Performed By: #### H H, BMPX #### [employer] [address] [place] [address] [phone] Ignition Expert: Luis Solis MD Hemoglobin and Hematocriton 12-10-2022 Hematocrit (Bld) [Volume fraction] 25.5 % Low 36.3 - 47.1 % [facility] Hemoglobin (Bld) [Mass/Vol] 7.9 g/dL Low 11.9 - 15.1 g/dL [facility] Interpretation and review of laboratory results Abnormal [facility] Hgb/Hcton 12-10-2022 Hematocrit (Bld) [Volume fraction] 25.5 % Low 36.3-47.1 [facility] Comment on above: Performed By: #### H H, BMPX #### [employer] [address] [place] [address] [phone] Ignition Expert: Luis Solis MD Hemoglobin (Bld) [Mass/Vol] 7.9 g/dL Low 11.9-15.1 [facility] Comment on above: Performed By: #### H H, BMPX #### [facility] [address] [place] [address] [phone] Ignition Expert: Luis Solis MD Laboratory - Blood bankon Blood product type Nom (BPU) Leukocyte Reduced Red Cell [facility] No Panel Informationon 12-10 Blood Bank ISBT Product Blood Type 9500 [facility] Blood Bank Unit Type and Rh Negative [facility] Crossmatch Result COMPATIBLE [facility] Dispense Status TRANSFUSED [facility] Transfusion Status OK TO TRANSFUSE B ON [facility] Unit Divison 0 [facility] POC Glucose Fingerstickon Glucose [Mass/Vol] 105 mg/dL 65 - 105 mg/dL [facility] Glucose [Mass/Vol] 119 mg/dL High 65 - 105 mg/dL [facility] Interpretation and review of laboratory results Abnormal [facility] Glucose [Mass/Vol] 159 mg/dL High 65 - 105 mg/dL [facility] Interpretation and review of laboratory results Abnormal [facility] Glucose [Mass/Vol] 70 mg/dL 65 - 105 mg/dL [facility] Glucose [Mass/Vol] 41 mg/dL Low 65 - 105 mg/dL [facility] Comment on above: Critical Noted Interpretation and review of laboratory results Abnormal [facility] TYPE AND SCREENon 12-10-2022 ABO/Rh Negative [facility] Arm Band Number [id number] [facility] Blood Bank Blood Product Expiration Date [id number] [facility] Blood Bank Blood Product Expiration Date [id number] [facility] Blood Bank Blood Product Expiration Date [id number] [facility] Blood product unit ID (Dose) [#] [id number] [facility] Blood product unit ID (Dose) [#] [id number] [facility] Blood product unit ID (Dose) [#] [id number] [facility] Expiration Date 12/10/2022,2359 [facility] Product Code Blood Bank [id number] [facility] Product Code Blood Bank [id number] [facility] Product Code Blood Bank [id number] [facility] Unit Issue Date/Time [id number] [facility] Unit Issue Date/Time [id number] [facility] Unit Issue Date/Time [id number] [facility] Basic Metab w/rfx MGon 12-09 Anion gap [Moles/Vol] 10 mmol/L Normal 9-17 [facility] Comment on above: Performed By: #### H H, BMPX #### [facility] [employer] [address] [place] [address] 89462 Ignition Expert: Luis Solis MD Calcium [Mass/Vol] 8.6 mg/dL Normal 8.6-10.4 [facility] Comment on above: Performed By: #### H H, BMPX #### [facility] [employer] [address] [place] [address] 99495 Ignition Expert: Luis Solis MD Chloride [Moles/Vol] 106 mmol/L Normal 98-107 [facility] Comment on above: Performed By: #### H H, BMPX #### [facility] [employer] [address] [place] [address] 65673 Ignition Expert: Luis Solis MD CO2 [Moles/Vol] 21 mmol/L Normal 20-31 [facility] Comment on above: Performed By: #### H H, BMPX #### [facility] [employer] [address] [place] [address] 61592 Ignition Expert: Luis Solis MD Creatinine [Mass/Vol] 1.33 mg/dL High 0.50-0.90 [facility] Comment on above: Performed By: #### H H, BMPX #### [facility] [employer] [address] [place] [address] 99301 Ignition Expert: Luis Solis MD GFR/1.73 sq M.predicted among non-blacks MDRD (S/P/Bld) [Vol rate/Area] 41 mL/min/{1.73_m2} Low >60 [facility] Comment on above: Result Comment: Effective Aug [...] #### H H, BMPX #### [facility] [address] [place] [address] 05082 Ignition Expert: Luis Solis MD Glucose [Mass/Vol] 102 mg/dL High 70-99 [facility] Comment on above: Performed By: #### H H, BMPX #### [facility] [address] [place] [address] 31179 Ignition Expert: Luis Solis MD Potassium [Moles/Vol] 4.1 mmol/L Normal 3.7-5.3 [facility] Comment on above: Performed By: #### H H, BMPX #### [facility] [address] [place] [address] 86662 Ignition Expert: Luis Solis MD Sodium [Moles/Vol] 137 mmol/L Normal 135-144 [facility] Comment on above: Performed By: #### H H, BMPX #### [facility] [address] [place] [address] 50812 Ignition Expert: Luis Solis MD Urea nitrogen [Mass/Vol] 19 mg/dL Normal 8-23 [facility] Comment on above: Performed By: #### H H, BMPX #### [facility] [address] [place] [address] 30721 Ignition Expert: Luis Solsi MD Basic Metabolic Panel w/ Ref pierre to MGon 12-09-2022 Anion gap [Moles/Vol] 10 mmol/L 9 - 17 mmol/L [facility] Calcium [Mass/Vol] 8.6 mg/dL 8.6 - 10. 4 mg/dL [facility] Chloride [Moles/Vol] 106 mmol/L 98 - 107 mmol/L [facility] CO2 [Moles/Vol] 21 mmol/L 20 - 31 mmol/L [facility] Creatinine [Mass/Vol] 1.33 mg/dL High 0.50 - 0.90 mg/dL [facility] GFR/1.73 sq M.predicted MDRD (S/P/Bld) [Vol rate/Area] 41 mL/min/{1.73_m2} Low - PINF [facility] Comment on above: Effective Aug [...] 102 mg/dL High 70 - 99 mg/dL [facility] Interpretation and review of laboratory results Abnormal [facility] Potassium [Moles/Vol] 4.1 mmol/L 3.7 - 5.3 mmol/L [facility] Sodium [Moles/Vol] 137 mmol/L 135 - 144 mmol/L [facility] Urea nitrogen (BldV) [Mass/Vol] 19 mg/dL 8 - 23 mg/dL [facility] Hemoglobin and Hematocriton 12-09-2022 Hematocrit (Bld) [Volume fraction] 25.6 % Low 36.3 - 47.1 % [facility] Hemoglobin (Bld) [Mass/Vol] 8.0 g/dL Low 11.9 - 15.1 g/dL [facility] Interpretation and review of laboratory results Abnormal [facility] Hematocrit (Bld) [Volume fraction] 23.5 % Low 36.3 - 47.1 % [facility] Hemoglobin (Bld) [Mass/Vol] 7.1 g/dL Low 11.9 - 15.1 g/dL [facility] Interpretation and review of laboratory results Abnormal [facility] Hgb/Hcton 12-09-2022 Hematocrit (Bld) [Volume fraction] 25.6 % Low 36.3-47.1 [facility] Comment on above: Performed By: #### H H, BMPX #### [facility] [address] [place] [address] Ignition Expert: Luis Solis MD Hemoglobin (Bld) [Mass/Vol] 8.0 g/dL Low 11.9-15.1 [facility] Comment on above: Performed By: #### H H, BMPX #### [facility] [address] [place] [address] 58253 Ignition Expert: Luis Solis MD Hematocrit (Bld) [Volume fraction] 23.5 % Low 36.3-47.1 [facility] Comment on above: Performed By: #### H H, BMPX #### [facility] [address] [place] [address] 86302 Ignition Expert: Luis Solis MD Hemoglobin (Bld) [Mass/Vol] 7.1 g/dL Low 11.9-15.1 [facility] Comment on above: Performed By: #### H H, BMPX #### [facility] [address] [place] [address] 18419 Ignition Expert: Luis Solis MD POC Glucose Fingerstickon Glucose [Mass/Vol] 143 mg/dL High 65 - 105 mg/dL [facility] Step-In Interpretation and review of laboratory results Abnormal [facility] HEALTH [facility] Glucose [Mass/Vol] 96 mg/dL 65 - 105 mg/dL [facility]ITALSTEMpowerkidsNOV[facility] CENTERSTEMpowerkids Step-In Glucose [Mass/Vol] 114 mg/dL High 65 - 105 mg/dL [facility] Step-In Interpretation and review of laboratory results Abnormal [facility] [employer] [facility] Step-In Glucose [Mass/Vol] 111 mg/dL High 65 - 105 mg/dL [facility] Step-In Interpretation and review of laboratory results Abnormal [facility] Step-In Type + Screenon 12-09-2022 Type + Screen Sample Expiration 12/10/2022,2359 Arm Band Number [id number] ABO/Rh(D) O NEGATIVE Antibody Screen NEGATIVE Unit Number [id number] Blood Component Type Leukocyte Reduced Red Cell Unit Division 00 Status of Unit TRANSFUSED Transfusion Status OK TO TRANSFUSE Crossmatch Result COMPATIBLE Unit Number [id number] Blood Component Type Leukocyte Reduced Red Cell Unit Division 00 Status of Unit TRANSFUSED Transfusion Status OK TO TRANSFUSE Crossmatch Result COMPATIBLE Unit Number [id number] Blood Component Type Leukocyte Reduced Red Cell Unit Division 00 Status of Unit TRANSFUSED Transfusion Status OK TO TRANSFUSE Crossmatch Result COMPATIBLE Normal [facility] Comment on above: Performed By: #### R EJEC, BMPX #### [facility] [employer] [address] [place] [address] 46362 Ignition Expert: Luis Solis MD Basic Metab w/rfx MGon 12-08 Anion gap [Moles/Vol] 9 mmol/L Normal 9-17 [facility] Comment on above: Performed By: #### R EJEC, BMPX #### [facility] [address] [place] [address] 63589 Ignition Expert: Luis Solis MD Calcium [Mass/Vol] 8.6 mg/dL Normal 8.6-10.4 [facility] Comment on above: Performed By: #### R EJEC, BMPX #### [facility] [address] [place] [address] 85882 Ignition Expert: Luis Solis MD Chloride [Moles/Vol] 106 mmol/L Normal 98-107 [facility] Comment on above: Performed By: #### R EJEC, BMPX #### [facility] [address] [place] [address] 17366 Ignition Expert: Luis Solis MD CO2 [Moles/Vol] 24 mmol/L Normal 20-31 [facility] Comment on above: Performed By: #### R EJEC, BMPX #### [facility] [address] [place] [address] 11846 Ignition Expert: Luis Solis MD Creatinine [Mass/Vol] 1.33 mg/dL High 0.50-0.90 [facility] Comment on above: Performed By: #### Jeff DALE BMPX #### [address] [address] Ignition Expert: Luis Solis MD GFR/1.73 sq M.predicted among non-blacks MDRD (S/P/Bld) [Vol rate/Area] 41 mL/min/{1.73_m2} Low >60 [facility] Comment on above: Result Comment: Effective Aug [...] Performed By: #### Jeff DALE BMPX #### [facility] [employer] [address] [place] [address] 93650 Ignition Expert: Luis Solis MD Glucose [Mass/Vol] 160 mg/dL High 70-99 [facility] Comment on above: Performed By: #### Jeff DALE BMPX #### [facility] [employer] [address] [place] [address] 87065 Ignition Expert: Luis Solis MD Potassium [Moles/Vol] 4.4 mmol/L Normal 3.7-5.3 [facility] Comment on above: Performed By: #### Jeff DALE BMPX #### [facility] [employer] [address] [place] [address] 33456 Ignition Expert: Luis Solis MD Sodium [Moles/Vol] 139 mmol/L Normal 135-144 [facility] Comment on above: Performed By: #### R CHITO, BMPX #### [facility] [employer] [address] [place] [address] [phone] Ignition Expert: Luis Solis MD Urea nitrogen [Mass/Vol] 21 mg/dL Normal 8-23 [facility] Comment on above: Performed By: #### R CHITO, BMPX #### [facility] [address] [place], [place] [phone] Ignition Expert: Luis Solis MD Basic Metabolic Panelon - Anion gap [Moles/Vol] 7 mmol/L Low 9 - 17 mmol/L [employer] Calcium [Mass/Vol] 8.5 mg/dL Low 8.6 - 10. 4 mg/dL [facility] Chloride [Moles/Vol] 110 mmol/L High 98 - 107 mmol/L [facility] [employer] CO2 [Moles/Vol] 25 mmol/L 20 - 31 mmol/L [facility] Creatinine [Mass/Vol] 1.43 mg/dL High 0.50 - 0.90 mg/dL [employer] GFR/1.73 sq M.predicted MDRD (S/P/Bld) [Vol rate/Area] 38 mL/min/{1.73_m2} Low - PINF [facility] [employer] Comment on above: Effective Aug 17, 2022 [...] 124 mg/dL High 70 - 99 mg/dL [facility] [employer] Interpretation and review of laboratory results Abnormal [facility] Potassium [Moles/Vol] 4.7 mmol/L 3.7 - 5.3 mmol/L [facility] Sodium [Moles/Vol] 142 mmol/L 135 - 144 mmol/L [facility] Urea nitrogen (BldV) [Mass/Vol] 23 mg/dL 8 - 23 mg/dL [facility] Basic Metabolic Panel w/ Ref pierre to MGon 12-08-2022 Anion gap [Moles/Vol] 9 mmol/L 9 - 17 mmol/L [facility] Calcium [Mass/Vol] 8.6 mg/dL 8.6 - 10. 4 mg/dL [facility] Chloride [Moles/Vol] 106 mmol/L 98 - 107 mmol/L [facility] CO2 [Moles/Vol] 24 mmol/L 20 - 31 mmol/L [facility] Creatinine [Mass/Vol] 1.33 mg/dL High 0.50 - 0.90 mg/dL [facility] GFR/1.73 sq M.predicted MDRD (S/P/Bld) [Vol rate/Area] 41 mL/min/{1.73_m2} Low - PINF [facility] Comment on above: Effective Aug [...] 160 mg/dL High 70 - 99 mg/dL [facility] Interpretation and review of laboratory results Abnormal [facility] Potassium [Moles/Vol] 4.4 mmol/L 3.7 - 5.3 mmol/L [facility] Sodium [Moles/Vol] 139 mmol/L 135 - 144 mmol/L [facility] Urea nitrogen (BldV) [Mass/Vol] 21 mg/dL 8 - 23 mg/dL [facility] Basic Metabolic Profon 12-08 Anion gap [Moles/Vol] 7 mmol/L Low 9-17 [facility] Comment on above: Performed By: #### B MP, CBC #### [facility] [employer] [address] [place], [place] [phone] Ignition Expert: Luis Solis MD Calcium [Mass/Vol] 8.5 mg/dL Low 8.6-10.4 [facility] Comment on above: Performed By: #### B MP, CBC #### [facility] [place] [address] Ignition Expert: Luis Solis MD Chloride [Moles/Vol] 110 mmol/L High 98-107 [facility] Comment on above: Performed By: #### B MP, CBC #### [facility] [address] [place] [address] 34992 Ignition Expert: Luis Solis MD CO2 [Moles/Vol] 25 mmol/L Normal 20-31 [facility] Comment on above: Performed By: #### B MP, CBC #### [facility] [address] [place] [address] 58746 Ignition Expert: Luis Solis MD Creatinine [Mass/Vol] 1.43 mg/dL High 0.50-0.90 [facility] Comment on above: Performed By: #### B MP, CBC #### [facility] [address] [place] [address] 24504 Ignition Expert: Luis Solis MD GFR/1.73 sq M.predicted among non-blacks MDRD (S/P/Bld) [Vol rate/Area] 38 mL/min/{1.73_m2} Low >60 [facility] Comment on above: Result Comment: Effective Aug [...] Performed By: #### B MP, CBC #### [address] [address] Ignition Expert: Luis Solis MD Glucose [Mass/Vol] 124 mg/dL High 70-99 [facility] Comment on above: Performed By: #### B MP, CBC #### [address] [address] Ignition Expert: Luis Solis MD Potassium [Moles/Vol] 4.7 mmol/L Normal 3.7-5.3 [facility] Comment on above: Performed By: #### B MP, CBC #### [address] [address] Ignition Expert: Luis Solis MD Sodium [Moles/Vol] 142 mmol/L Normal 135-144 [facility] Comment on above: Performed By: #### B MP, CBC #### [facility] [employer] [address] [place] [address] 73959 Ignition Expert: Luis Solis MD Urea nitrogen [Mass/Vol] 23 mg/dL Normal 8-23 [facility] Comment on above: Performed By: #### B MP, CBC #### [facility] [employer] [address] [place] [address] 26982 Ignition Expert: Luis Solis MD CBCon 12-08-2022 Erythrocyte distribution width (RBC) [Ratio] 17.8 % High 11.8-14.4 [facility] Comment on above: Performed By: #### B MP, CBC #### [facility] [employer] [address] [place] [address] 35720 Ignition Expert: Luis Solis MD Hematocrit (Bld) [Volume fraction] 22.0 % Low 36.3-47.1 [facility] Comment on above: Performed By: #### B MP, CBC #### [facility] [employer] [address] [place] [address] 87189 Ignition Expert: Luis Solis MD Hemoglobin (Bld) [Mass/Vol] 6.6 g/dL Critically low 11.9-15.1 [facility] Comment on above: Performed By: #### B MP, CBC #### [address] [address] Ignition Expert: Luis Solis MD MCH (RBC) [Entitic mass] 27.5 pg Normal 25.2-33.5 [facility] Comment on above: Performed By: #### B MP, CBC #### [address] [address] Ignition Expert: Luis Solis MD MCHC (RBC) [Mass/Vol] 30.0 g/dL Normal 28.4-34.8 [facility] Comment on above: Performed By: #### B MP, CBC #### [address] [address] Ignition Expert: Luis Solis MD MCV (RBC) [Entitic vol] 91.7 fL Normal 82.6-102.9 [facility] Comment on above: Performed By: #### B MP, CBC #### [address] [address] Ignition Expert: Luis Solis MD NRBC Automated 0.0 per 100 WBC Normal 0.0 [facility] Comment on above: Performed By: #### B MP, CBC #### [address] [address] Ignition Expert: Luis Solis MD Platelet mean volume (Bld) [Entitic vol] 10.3 fL Normal 8.1-13.5 [facility] Comment on above: Performed By: #### B MP, CBC #### [address] [address] Ignition Expert: Luis Solis MD Platelets (Bld) [#/Vol] 250 10*3/uL Normal 138-453 [facility] Comment on above: Performed By: #### B MP, CBC #### [address] [phone] Ignition Expert: Luis Solis MD RBC (Bld) [#/Vol] 2.40 10*6/uL Low 3.95-5.11 [facility] Comment on above: Performed By: #### B MP, CBC #### [facility] [address] [place], [place] [phone] Ignition Expert: Luis Solis MD WBC (Bld) [#/Vol] 9.2 10*3/uL Normal 3.5-11.3 [facility] Comment on above: Performed By: #### B MP, CBC #### [facility] [address] [place] [address] Ignition Expert: Luis Solis MD Hematocrit (Bld) [Volume fraction] 22.0 % Low 36.3 - 47.1 % [facility] Hemoglobin (Bld) [Mass/Vol] 6.6 g/dL Critically low 11.9 - 15.1 g/dL [facility] Interpretation and review of laboratory results Abnormal [facility] MCH (RBC) [Entitic mass] 27.5 pg 25.2 - 33.5 pg [facility] MCHC (RBC) [Mass/Vol] 30.0 g/dL 28.4 - 34.8 g/dL [facility] MCV (RBC) [Entitic vol] 91.7 fL 82.6 - 102.9 fL [facility] NRBC Automated 0.0 0.0 per 100 WBC [facility] Platelet distribution width (Bld) [Ratio] 17.8 % High 11.8 - 14.4 % [facility] Platelet mean volume (Bld) [Entitic vol] 10.3 fL 8.1 - 13.5 fL [facility] Platelets (Bld) [#/Vol] 250 10*3/uL [facility] RBC (Bld) [#/Vol] 2.40 10*6/uL Low 3.95 - 5.1 1 m/uL [facility] WBC (Bld) [#/Vol] 9.2 10*3/uL [facility] Hemoglobin and Hematocriton 12-08-2022 Hematocrit (Bld) [Volume fraction] 24.4 % Low 36.3 - 47.1 % [facility] Hemoglobin (Bld) [Mass/Vol] 7.4 g/dL Low 11.9 - 15.1 g/dL [facility] Interpretation and review of laboratory results Abnormal [facility] Hematocrit (Bld) [Volume fraction] 24.6 % Low 36.3 - 47.1 % [facility] Hemoglobin (Bld) [Mass/Vol] 7.7 g/dL Low 11.9 - 15.1 g/dL [facility] Interpretation and review of laboratory results Abnormal [facility] Hematocrit (Bld) [Volume fraction] 22.9 % Low 36.3 - 47.1 % [facility] Hemoglobin (Bld) [Mass/Vol] 7.6 g/dL Low 11.9 - 15.1 g/dL [facility] Interpretation and review of laboratory results Abnormal [facility] Hematocrit (Bld) [Volume fraction] 21.9 % Low 36.3 - 47.1 % [facility] Hemoglobin (Bld) [Mass/Vol] 6.5 g/dL Critically low 11.9 - 15.1 g/dL [facility] Interpretation and review of laboratory results Abnormal [facility] Hgb/Hcton 12-08-2022 Hematocrit (Bld) [Volume fraction] 24.4 % Low 36.3-47.1 [facility] Comment on above: Performed By: #### R CHITO BMPX #### [facility] [address] [place] [address] Ignition Expert: Luis Solis MD Hemoglobin (Bld) [Mass/Vol] 7.4 g/dL Low 11.9-15.1 [facility] Comment on above: Performed By: #### R CHITO BMPX #### [facility] [address] [place] [address] 64483 Ignition Expert: Luis Solis MD Hematocrit (Bld) [Volume fraction] 24.6 % Low 36.3-47.1 [facility] Comment on above: Performed By: #### R EJEC, BMPX #### [facility] [address] [place] [address] 82028 Ignition Expert: Luis Solis MD Hemoglobin (Bld) [Mass/Vol] 7.7 g/dL Low 11.9-15.1 [facility] Comment on above: Performed By: #### R EJEC, BMPX #### [facility] [employer] [address] [place] [address]19 Ignition Expert: Luis Solis MD Hematocrit (Bld) [Volume fraction] 22.9 % Low 36.3-47.1 [facility] Comment on above: Performed By: #### R EJEC, BMPX #### [facility] [employer] [address] [place] [address]111 Ignition Expert: Luis Solis MD Hemoglobin (Bld) [Mass/Vol] 7.6 g/dL Low 11.9-15.1 [facility] Comment on above: Performed By: #### R EJEC, BMPX #### [facility] [employer] [address] [place] [address]687 Ignition Expert: Luis Solis MD Hematocrit (Bld) [Volume fraction] 21.9 % Low 36.3-47.1 [facility] Comment on above: Performed By: #### H H #### [facility] [employer] [address] [place] [address] 38875 Ignition Expert: Luis Solis MD Hemoglobin (Bld) [Mass/Vol] 6.5 g/dL Critically low 11.9-15.1 [facility] Comment on above: Performed By: #### H H #### [facility] [employer] [address] [place] [address] [phone] Ignition Expert: Luis Solis MD Hematocrit (Bld) [Volume fraction] 23.7 % Low 36.3-47.1 [facility] Comment on above: Performed By: #### R EJEC, BMPX #### [facility] [address] [place], [place] [phone] Ignition Expert: Luis Solis MD Hemoglobin (Bld) [Mass/Vol] 7.6 g/dL Low 11.9-15.1 [facility] Comment on above: Performed By: #### R EJEC, BMPX #### [facility] [address] [place] [address] [phone] Ignition Expert: Luis Solis MD POC Glucose Fingerstickon Glucose [Mass/Vol] 129 mg/dL High 65 - 105 mg/dL [facility] Interpretation and review of laboratory results Abnormal [facility] Glucose [Mass/Vol] 138 mg/dL High 65 - 105 mg/dL [facility] Interpretation and review of laboratory results Abnormal [facility] Glucose [Mass/Vol] 164 mg/dL High 65 - 105 mg/dL [facility] Interpretation and review of laboratory results Abnormal [facility] SPECIMEN REJECTIONon 023 Ordered Test HH [facility] Reason for Rejection Unable to perform testing: Specimen clotted. [facility] Specimen source Nom (Unsp spec) .BLOOD [facility] Specimen Rejectionon 023 Reason for rejection Unable to perform testing: Specimen clotted. Normal [facility] Comment on above: Performed By: #### R EJEC, BMPX #### [facility] [address] [place] [address] [id number] Ignition Expert: Luis Solis MD Source of sample .BLOOD Normal [facility] Comment on above: Performed By: #### R EJEC, BMPX #### [facility] [address] [place] [address] Ignition Expert: Luis Solis MD Test ordered HH Normal [facility] Comment on above: Performed By: #### R CHITO, WILSONX #### [facility] [address] [place] [address] Ignition Expert: Luis Solis MD Activated clotting timeon Activated Clotting Time 262 High [facility] Interpretation and review of laboratory results Abnormal [facility] CHLORIDE (POC)on 12-07-2022 Chloride [Moles/Vol] 107 mmol/L 98 - 107 mmol/L [facility] Catheterization and angiogra phy procedure details panelon 12-07-2022 [facility] Work Phone: Creatinine W/GFR Point of Ca reon 12-07-2022 Creatinine [Mass/Vol] 1.35 mg/dL High 0.51 - 1.19 mg/dL [facility] eGFR, POC 41 mL/min/1.73m 2 [facility] Comment on above: Effective Aug [...] 23.7 % Low 36.3 - 47.1 % [facility] Hemoglobin (Bld) [Mass/Vol] 7.6 g/dL Low 11.9 - 15.1 g/dL [facility] Interpretation and review of laboratory results Abnormal [facility] Hematocrit (Bld) [Volume fraction] 24.9 % Low 36.3 - 47.1 % [facility] Hemoglobin (Bld) [Mass/Vol] 7.2 g/dL Low 11.9 - 15.1 g/dL [facility] Interpretation and review of laboratory results Abnormal [facility] Hemoglobin and hematocrit, b loodon 12-07-2022 Hematocrit (Bld) [Volume fraction] 20 % Low 36 - 46 % [facility] Hemoglobin (Bld) [Mass/Vol] 6.9 g/dL Critically low 12.0 - 16.0 g/dL [facility] Interpretation and review of laboratory results Abnormal [facility] Hematocrit (Bld) [Volume fraction] 30 % Low 36 - 46 % [facility] Hemoglobin (Bld) [Mass/Vol] 10.1 g/dL Low 12.0 - 16.0 g/dL [facility] Hgb/Hcton 12-07-2022 Hematocrit (Bld) [Volume fraction] 24.9 % Low 36.3-47.1 [facility] Comment on above: Performed By: #### R ZAINABEC, BMPX #### [facility] [address] [place] [address] Ignition Expert: Luis Solis MD Hemoglobin (Bld) [Mass/Vol] 7.2 g/dL Low 11.9-15.1 [facility] Comment on above: Performed By: #### R EJEC, BMPX #### [facility] [address] [place] [address] Ignition Expert: Luis Solis MD No Panel Informationon 12-07 Interpretation and review of laboratory results Abnormal [facility] POC Glucose Fingerstickon Glucose [Mass/Vol] 197 mg/dL High 65 - 105 mg/dL [facility] Interpretation and review of laboratory results Abnormal [facility] Glucose [Mass/Vol] 101 mg/dL 65 - 105 mg/dL [facility] POCT Glucoseon 12-07-2022 Glucose [Mass/Vol] 83 mg/dL 74 - 100 mg/dL [facility] POCT urea (BUN)on 12-07-2022 Urea nitrogen [Mass/Vol] 25 mg/dL 8 - 26 mg/dL [facility] POTASSIUM (POC)on 12-07-2022 Potassium [Moles/Vol] 4.2 mmol/L 3.5 - 4.5 mmol/L [facility] SODIUM (POC)on 12-07-2022 Sodium [Moles/Vol] 142 mmol/L 138 - 146 mmol/L [facility] VL DUP LOWER EXTREMITY ARTER IES RIGHTon 12-07-2022 Darnell Monique MD - 12/07/2022 [facility] Vascular Lower Extremities Arterial Duplex Procedure Patient Name CHRISTA Date of Study 12/07/2022 [facility] Date of 1945 Gender Female Age 77 year(s) Race Room Number 0501 Height: 65 inch, 165.1 cm Corporate ID # [id number] Weight: 208 pounds, 94.3 kg Patient BSA: 2.01 m^2 BMI: 34.61 kg/m^2 MR # [id number] Director Payment Whit Gan RVT Interpreting Physician Darnell Monique [...] ! ! +---------++-----+----- +------+----+------++-- -+-----+------+----+--- ------ + [employer] [facility] Phone: Radiology Study observation (narrative) [employer] Phone: VL DUP LOWER EXTREMITY ARTER IES RIGHTOrdered By: Darnell Burk on 12-07-2022 [employer] [facility] Phone: CHLORIDE (POC)on 11-24-2022 Chloride [Moles/Vol] 105 mmol/L 98 - 107 mmol/L [facility] Creatinine W/GFR Point of Ca reon 11-24-2022 Creatinine [Mass/Vol] 1.5 mg/dL High 0.51 - 1.19 mg/dL [facility] eGFR, POC 36 mL/min/1.73m 2 [facility] Comment on above: Effective Aug [...] 26 % Low 36 - 46 % [facility] Hemoglobin (Bld) [Mass/Vol] 8.7 g/dL Low 12.0 - 16.0 g/dL [facility] No Panel Informationon 11-24 Interpretation and review of laboratory results Abnormal [facility] POCT Glucoseon 11-24-2022 Glucose [Mass/Vol] 135 mg/dL High 74 - 100 mg/dL [facility] POCT urea (BUN)on 11-24-2022 POC BUN Result not available. 8 - 26 mg/dL B ON [facility] POTASSIUM (POC)on 11-24-2022 Potassium [Moles/Vol] 5.3 mmol/L High 3.5 - 4.5 mmol/L [facility] Platelet Counton 11-24-2022 Platelets (Bld) [#/Vol] 314 10*3/uL Normal 138-453 [facility] Comment on above: Performed By: #### P LT #### [facility] [place] [address] Ignition Expert: Luis Solis MD Platelets (Bld) [#/Vol] 314 10*3/uL [facility] SODIUM (POC)on 11-24-2022 Sodium [Moles/Vol] 142 mmol/L 138 - 146 mmol/L [facility] Cult,Bloodon 10-03-2022 Cult,Blood Specimen Description .BLOOD Special Requests L AC 10ML Culture NO GROWTH 5 DAYS Report Status FINAL 10/03/2022 Normal [facility] Comment on above: Performed By: #### B C #### [address] [address] Ignition Expert: Luis Solis MD Cult,Blood Specimen Description .BLOOD Special Requests R AC 10ML Culture NO GROWTH 5 DAYS Report Status FINAL 10/03/2022 Normal [facility] Comment on above: Performed By: #### H H, BMPX #### [address] [address] Ignition Expert: Luis Solis MD Basic Metab w/rfx MGon 09-30 Anion gap [Moles/Vol] 9 mmol/L Normal -17 [facility] Comment on above: Performed By: #### H H, BMPX #### [address] [address] Ignition Expert: Luis Solis MD Calcium [Mass/Vol] 8.8 mg/dL Normal 8.6-10.4 [facility] Comment on above: Performed By: #### H H, BMPX #### [address] [address] Ignition Expert: Luis Solis MD Chloride [Moles/Vol] 102 mmol/L Normal 98-107 [facility] Comment on above: Performed By: #### H H, BMPX #### [address] [address] Ignition Expert: Luis Solis MD CO2 [Moles/Vol] 28 mmol/L Normal 20-31 [facility] Comment on above: Performed By: #### H H, BMPX #### [address] [address] Ignition Expert: Luis Solis MD Creatinine [Mass/Vol] 1.28 mg/dL High 0.50-0.90 [facility] Comment on above: Performed By: #### H H, BMPX #### [facility] [address] [place] [address] Ignition Expert: Luis Solis MD GFR/1.73 sq M.predicted among non-blacks MDRD (S/P/Bld) [Vol rate/Area] 43 mL/min/{1.73_m2} Low >60 [facility] Comment on above: Result Comment: Effective Aug [...] Performed By: #### H H, BMPX #### [facility] [address] [place] [address] Ignition Expert: Luis Solis MD Glucose [Mass/Vol] 141 mg/dL High 70-99 [facility] Comment on above: Performed By: #### H H, BMPX #### [facility] [address] [place] [address] Ignition Expert: Luis Solis MD Potassium [Moles/Vol] 4.0 mmol/L Normal 3.7-5.3 [facility] Comment on above: Performed By: #### H H, BMPX #### [facility] [address] [place] [address] Ignition Expert: Luis Solis MD Sodium [Moles/Vol] 139 mmol/L Normal 135-144 [facility] Comment on above: Performed By: #### H H, BMPX #### [facility] [address] [place] [address] Ignition Expert: Luis Solis MD Urea nitrogen [Mass/Vol] 18 mg/dL Normal 8-23 [facility] Comment on above: Performed By: #### H H BMPX #### [facility] [address] [place] [address] [phone] Ignition Expert: Luis Solis MD Cult,Urineon 09-30-2022 Cult,Urine Specimen Description .URINE,STRAIGHT CATHETER Culture ESCHERICHIA COLI >[id number] CFU/ML AEROCOCCUS URINAE 50 to 100,000 CFU/ML [...] Trimethoprim/Sulfa <=20 SUSCEPTIBLE Piperacillin/Tazobactam <=4 SUSCEPTIBLE Susceptible [facility] Comment on above: Performed By: #### H H BMPX #### [facility] [address] [place] [address] [phone] Ignition Expert: Luis Solis MD APTTon 09-29-2022 aPTT Coag (Bld) [Time] 30.4 s Normal 20.5-30.5 [facility] Comment on above: Result Comment: IV Heparin Therapy Range: 48.6-77.8 Performed By: #### H H, BMPX #### [facility] [address] [place] [address] [phone] Ignition Expert: Luis Solis MD Procalcitoninon 09-29-2022 Procalcitonin 0.23 ng/mL High <0.09 [facility] Comment on above: Result Comment: Suspected Sepsis: [...] entered into the Change in Procalcitonin Calculator ([email or web address]) to determine the patient's Mortality Risk Prognosis In healthy neonates, plasma Procalcitonin (PCT) concentrations increase gradually after , reaching peak values at about 24 hours of age then decrease to normal values below 0.5 ng/mL by 48-72 hours of age. Performed By: #### R EJEC, BMPX #### [facility] [address] [place] [address] Ignition Expert: Luis Solis MD APTTon 09-28-2022 aPTT Coag (Bld) [Time] 110.7 s Critically high 20.5-30.5 [facility] Comment on above: Result Comment: IV Heparin Therapy Range: 48.6-77.8 Performed By: #### P TT #### [facility] [address] [place], [place] [phone] Ignition Expert: Luis Solis MD aPTT Coag (Bld) [Time] 24.1 s Normal 20.5-30.5 [facility] Comment on above: Result Comment: IV Heparin Therapy Range: 48.6-77.8 Performed By: #### H H, BMPX #### [facility] [address] [place], [place] [phone] Ignition Expert: Luis Solis MD aPTT Coag (Bld) [Time] 22.6 s Normal 20.5-30.5 [facility] Comment on above: Result Comment: IV Heparin Therapy Range: 48.6-77.8 Performed By: #### H H, BMPX #### [facility] [employer] [address] [place] [address] Ignition Expert: Luis Solis MD Basic Metab w/rfx MGon 09-28 Anion gap [Moles/Vol] 10 mmol/L Normal 9-17 [facility] Comment on above: Performed By: #### R CHITO, BMPX #### [facility] [employer] [address] [place] [address] Ignition Expert: Luis Solis MD Calcium [Mass/Vol] 7.6 mg/dL Low 8.6-10.4 [facility] Comment on above: Performed By: #### R EJJESE, BMPX #### [facility] [employer] [address] [place] [address]21 Ignition Expert: Luis Solis MD Chloride [Moles/Vol] 107 mmol/L Normal 98-107 [facility] Comment on above: Performed By: #### R EJEC, BMPX #### [facility] [employer] [address] [place] [address] Ignition Expert: Luis Solis MD CO2 [Moles/Vol] 23 mmol/L Normal 20-31 [facility] Comment on above: Performed By: #### R EJEC, BMPX #### [facility] [address] [place] [address] Ignition Expert: Luis Solis MD Creatinine [Mass/Vol] 1.33 mg/dL High 0.50-0.90 [facility] Comment on above: Performed By: #### R EJEC, BMPX #### [facility] [address] [place] [address]53 Ignition Expert: Luis Solis MD GFR/1.73 sq M.predicted among non-blacks MDRD (S/P/Bld) [Vol rate/Area] 41 mL/min/{1.73_m2} Low >60 [facility] Comment on above: Result Comment: Effective Aug [...] Performed By: #### Jeff DALE BMPX #### [facility] [address] [place] [address] Ignition Expert: Luis Solis MD Glucose [Mass/Vol] 243 mg/dL High 70-99 [facility] Comment on above: Performed By: #### Jeff DALE BMPX #### [facility] [address] [place] [address] Ignition Expert: Luis Solis MD Potassium [Moles/Vol] 4.5 mmol/L Normal 3.7-5.3 [facility] Comment on above: Performed By: #### Jeff DALE BMPX #### [facility] [address] [place] [address] Ignition Expert: Luis Solis MD Sodium [Moles/Vol] 140 mmol/L Normal 135-144 [facility] Comment on above: Performed By: #### R CHITO BMPX #### [facility] [address] [place] [address] Ignition Expert: Luis Solis MD Urea nitrogen [Mass/Vol] 21 mg/dL Normal 8-23 [facility] Comment on above: Performed By: #### R CHITO, BMPX #### [facility] [address] [place] [address] Ignition Expert: Luis Solis MD Brain Natri. Peptideon 09-28 Natriuretic peptide B (Bld) [Mass/Vol] 5275 pg/mL High <300 [facility] Comment on above: Result Comment: An age-independent cutoff point of 300 pg/ml has a 98% negative predictive value excluding acute heart failure. Performed By: #### H H, BMPX #### [facility] [employer] [address] [place] [address] Ignition Expert: Luis Solis MD C-Reactive Proteinon 022 CRP [Mass/Vol] 48.0 mg/L High 0.0-5.0 [facility] Comment on above: Performed By: #### R CHITO, BMPX #### [facility] [employer] [address] [place] [address] Ignition Expert: Luis Solis MD CBC with Diffon 09-28-2022 Abs. Basophil 0.06 k/uL Normal 0.00-0.20 [facility] Comment on above: Performed By: #### H H, BMPX #### [address] [address] Ignition Expert: Luis Solis MD Abs.Imm.Granulocyte 0.16 k/uL Normal 0.00-0.30 [facility] Comment on above: Performed By: #### H H, BMPX #### [facility] [employer] [address] [place] [address] Ignition Expert: Luis Solis MD Abs.Neutrophil (Seg) 10.78 k/uL High 1.50-8.10 [facility] Comment on above: Performed By: #### H H, BMPX #### [facility] [employer] [address] [place] [address] Ignition Expert: Luis Solis MD Basophils/100 WBC (Bld) 1 % Normal 0-2 [facility] Comment on above: Performed By: #### H H, BMPX #### [address] [address] Ignition Expert: Luis Solis MD Eosinophils (Bld) [#/Vol] 0.20 10*3/uL Normal 0.00-0.44 [facility] Comment on above: Performed By: #### H H, BMPX #### [facility] [employer] [address] [place] [address] Ignition Expert: Luis Solis MD Eosinophils/100 WBC (Bld) 2 % Normal 1-4 [facility] Comment on above: Performed By: #### H H, BMPX #### [facility] [employer] [address] [place] [address] Ignition Expert: Luis Solis MD Erythrocyte distribution width (RBC) [Ratio] 16.7 % High 11.8-14.4 [facility] Comment on above: Performed By: #### H H, BMPX #### [address] [address] Ignition Expert: Luis Solis MD Hematocrit (Bld) [Volume fraction] 27.2 % Low 36.3-47.1 [facility] Comment on above: Performed By: #### H H, BMPX #### [address] [address] Ignition Expert: Luis Solis MD Hemoglobin (Bld) [Mass/Vol] 8.1 g/dL Low 11.9-15.1 [facility] Comment on above: Performed By: #### H H, BMPX #### [facility] [employer] [address] [place] [address] Ignition Expert: Luis Solis MD Immature granulocytes/100 WBC (Bld) 1 % High 0 [facility] Comment on above: Performed By: #### H H, BMPX #### [facility] [employer] [address] [place] [address] Ignition Expert: Luis Solis MD Lymphocytes (Bld) [#/Vol] 0.74 10*3/uL Low 1.10-3.70 [facility] Comment on above: Performed By: #### H H, BMPX #### [address] [address] Ignition Expert: Luis Solis MD Lymphocytes/100 WBC (Bld) 6 % Low 24-43 [facility] Comment on above: Performed By: #### H H, BMPX #### [place] [address] Ignition Expert: Luis Solis MD MCH (RBC) [Entitic mass] 26.9 pg Normal 25.2-33.5 [facility] Comment on above: Performed By: #### H H, BMPX #### [place] [address] Ignition Expert: Luis Solis MD MCHC (RBC) [Mass/Vol] 29.8 g/dL Normal 28.4-34.8 [facility] Comment on above: Performed By: #### H H, BMPX #### [address] [address] Ignition Expert: Luis Solis MD MCV (RBC) [Entitic vol] 90.4 fL Normal 82.6-102.9 [facility] Comment on above: Performed By: #### H H, BMPX #### [address] [address] Ignition Expert: Luis Solis MD Monocytes (Bld) [#/Vol] 0.78 10*3/uL Normal 0.10-1.20 [facility] Comment on above: Performed By: #### H H, BMPX #### [place] [address] Ignition Expert: Luis Solis MD Monocytes/100 WBC (Bld) 6 % Normal 3-12 [facility] Comment on above: Performed By: #### H H, BMPX #### [address] [address] Ignition Expert: Luis Solis MD Neutrophil (Seg) 84 % High 36-65 [facility] Comment on above: Performed By: #### H H, BMPX #### [address] [address] Ignition Expert: Luis Solis MD NRBC Automated 0.2 per 100 WBC High 0.0 [facility] Comment on above: Performed By: #### H H, BMPX #### [address] [address] Ignition Expert: Luis Solis MD Platelet mean volume (Bld) [Entitic vol] 9.9 fL Normal 8.1-13.5 [facility] Comment on above: Performed By: #### H H, BMPX #### [address] [address] Ignition Expert: Luis Solis MD Platelets (Bld) [#/Vol] 391 10*3/uL Normal 138-453 [facility] Comment on above: Performed By: #### H H, BMPX #### [address] [address] Ignition Expert: Luis Solis MD RBC (Bld) [#/Vol] 3.01 10*6/uL Low 3.95-5.11 [facility] Comment on above: Performed By: #### H H, BMPX #### [address] [address] Ignition Expert: Luis Solsi MD RBC morphology finding Nom (Bld) ANISOCYTOSIS PRESENT Normal [facility] Comment on above: Performed By: #### H H, BMPX #### [facility] [address] [place] [address] Ignition Expert: Luis Solis MD WBC (Bld) [#/Vol] 12.7 10*3/uL High 3.5-11.3 [facility] Comment on above: Performed By: #### H H, BMPX #### [facility] [address] [place] [address] Ignition Expert: Luis Solis MD CT CHEST PULMONARY EMBOLISM [...] COMPARISON: None HISTORY: ORDERING SYSTEM PROVIDED HISTORY: tachlcuy hypoxia TECHNOLOGIST PROVIDED HISTORY: Tachlucy hypoxia Decision Support Exception - unselect if [...] Matthew Chong MD 09/28/22 Final result Normal [facility] Comp Metabolic Profon 2021 Albumin [Mass/Vol] 3.5 g/dL Normal 3.5-5.2 [facility] Comment on above: Performed By: #### H H, BMPX #### [facility] [employer] [address] [place] [address] Ignition Expert: Luis Solis MD Albumin/Glob Ratio 0.9 Low 1.0-2.5 [facility] Comment on above: Performed By: #### H H, BMPX #### [facility] [address] [place] [address] Ignition Expert: Luis Solis MD Alkaline Phos 104 U/L Normal 35-104 [facility] Comment on above: Performed By: #### H H, BMPX #### [facility] [place], [place] [phone] Ignition Expert: Luis Solis MD ALT [Catalytic activity/Vol] 7 U/L Normal 5-33 [facility] Comment on above: Performed By: #### H H, BMPX #### [address] [address] Ignition Expert: Luis Solis MD Anion gap [Moles/Vol] 13 mmol/L Normal 9-17 [facility] Comment on above: Performed By: #### H H, BMPX #### [address] [address] Ignition Expert: Luis Solis MD AST [Catalytic activity/Vol] 15 U/L Normal <32 [facility] Comment on above: Performed By: #### H H, BMPX #### [address] [address] Ignition Expert: Luis Solis MD Bilirubin [Mass/Vol] 0.5 mg/dL Normal 0.3-1.2 [facility] Comment on above: Performed By: #### H H, BMPX #### [address] [address] Ignition Expert: Luis Solis MD Calcium [Mass/Vol] 8.5 mg/dL Low 8.6-10.4 [facility] Comment on above: Performed By: #### H H, BMPX #### [address] [address] Ignition Expert: Luis Solis MD Chloride [Moles/Vol] 102 mmol/L Normal 98-107 [facility] Comment on above: Performed By: #### H H, BMPX #### [address] [address] Ignition Expert: Luis Solis MD CO2 [Moles/Vol] 24 mmol/L Normal 20-31 [facility] Comment on above: Performed By: #### H H, BMPX #### [facility] [address] [place] [address] Ignition Expert: Luis Solis MD Creatinine [Mass/Vol] 1.62 mg/dL High 0.50-0.90 [facility] Comment on above: Performed By: #### H H, BMPX #### [facility] [employer] [address] [place] [address] Ignition Expert: Luis Solis MD GFR/1.73 sq M.predicted among non-blacks MDRD (S/P/Bld) [Vol rate/Area] 33 mL/min/{1.73_m2} Low >60 [facility] Comment on above: Result Comment: Effective Aug [...] Performed By: #### H H, BMPX #### [facility] [employer] [address] [place] [address] Ignition Expert: Luis Solis MD Glucose [Mass/Vol] 272 mg/dL High 70-99 [facility] Comment on above: Performed By: #### H H, BMPX #### [facility] [address] [place] [address] Ignition Expert: Luis Solis MD Potassium [Moles/Vol] 4.4 mmol/L Normal 3.7-5.3 [facility] Comment on above: Performed By: #### H H, BMPX #### [facility] [address] [place] [address] Ignition Expert: Luis Solis MD Protein [Mass/Vol] 7.3 g/dL Normal 6.4-8.3 [facility] Comment on above: Performed By: #### H H, BMPX #### [facility] [employer] [address] [place] [address] Ignition Expert: Luis Solis MD Sodium [Moles/Vol] 139 mmol/L Normal 135-144 [facility] Comment on above: Performed By: #### H H, BMPX #### [facility] [employer] [address] [place] [address] Ignition Expert: Luis Solis MD Urea nitrogen [Mass/Vol] 22 mg/dL Normal 8-23 [facility] Comment on above: Performed By: #### H H, BMPX #### [facility] [employer] [address] [place] [address] Ignition Expert: Luis Solis MD Lactate, Sepsison 09-28-2022 Lactic Acid,Sep Wbld 0.6 mmol/L Normal 0.5-1.9 [facility] Comment on above: Performed By: #### R EJEC, BMPX #### [facility] [employer] [address] [place] [address] Ignition Expert: Luis Solis MD Lactic Acid,Sep Wbld 1.5 mmol/L Normal 0.5-1.9 [facility] Comment on above: Performed By: #### H H, BMPX #### [facility] [employer] [address] [place] [address] Ignition Expert: Luis Solis MD Legionella Ag, Uron 09-28-20 Legionella Ag, Ur Negative Normal NEG [facility] Comment on above: Result Comment: L. p neumophila serogroup 1 antigen not detected. A negative result does not exclude infection with Leginella pnemophila serogroup 1 nor does it rule out other microbial-caused respiratory infections of disease caused by other serogroups of Legionella pneumophila. Performed By: #### H H, BMPX #### [facility] [employer] [address] [place] [address] Ignition Expert: Luis Solis MD PTon 09-28-2022 INR Coag (PPP) [Relative time] 1.1 {INR} Normal [facility] Comment on above: Result Comment: Therapeutic Range: Moderate Anticoagulant Intensity: INR = 2.0-3.0 High Anticoagulant Intensity: INR = 2.5-3.5 Performed By: #### H H, BMPX #### [employer] [address] [place] [address] [phone] Ignition Expert: Luis Solis MD PT Coag (PPP) [Time] 11.8 s Normal 9.1-12.3 [facility] Comment on above: Performed By: #### H H, BMPX #### [employer] [address] [place] [address] [phone] Ignition Expert: Luis Solis MD [id number] 09-28-2022 SARS-CoV-2 (COVID-19) RNA SIRI+probe Ql (Unsp spec) Not detected Normal NOTDET [facility] Comment on above: Result Comment: Rapid NAAT: [...] management decisions. Fact sheet for Healthcare Providers: https://www.fda.gov/media/174661/download Fact sheet for Patients: https://www.fda.gov/media/444605/download Methodology: Isothermal Nucleic Acid Amplification Performed By: #### R EJEC, BMPX #### [employer] [facility] [place], [place] [phone] Ignition Expert: Luis Solis MD Sedimentation Rateon 022 Sedimentation Rate 61 mm/Hr High 0-30 [facility] Comment on above: Performed By: #### R CHITO, BMPX #### [employer] [address] [place] [address] Ignition Expert: Luis Solis MD Strep pneum Ag,CSF/Uron - Strep pneum Ag Negative Normal [facility] Comment on above: Result Comment: Stre p pneumoniae antigen not detected Performed By: #### R CHITO, BMPX #### [facility] [employer] [address] [place] [address] Ignition Expert: Luis Solis MD Strep pneu Ag Source .URINE Normal [facility] Comment on above: Performed By: #### R CHITO, BMPX #### [employer] [address] [place] [address] Ignition Expert: Luis Solis MD Troponinon 09-28-2022 Troponin, High Sens 222 ng/L Critically high 0-14 [facility] Comment on above: Result Comment: High Sensitivity Troponin values cannot be compared with other Troponin methodologies. Patients with high levels of Biotin oral intake (i.e >5mg/day) may have falsely decreased Troponin levels. Samples collected within 8 hours of biotin intake may require additional information for diagnosis. Performed By: #### R CHITO, BMPX #### [facility] [address] [place] [address] Ignition Expert: Luis Solis MD Troponin, High Sens 219 ng/L Critically high 0-14 [facility] Comment on above: Result Comment: High Sensitivity Troponin values cannot be compared with other Troponin methodologies. Patients with high levels of Biotin oral intake (i.e >5mg/day) may have falsely decreased Troponin levels. Samples collected within 8 hours of biotin intake may require additional information for diagnosis. Performed By: #### H H, BMPX #### [employer] [address] [place] [address] Ignition Expert: Luis Solis MD Type + Screenon 09-28-2022 Type + Screen Sample Expiration 10/01/2022,2359 Arm Band Number BE [id number] ABO/Rh(D) O NEGATIVE Antibody Screen NEGATIVE Normal [facility] Comment on above: Performed By: #### H H, BMPX #### [address] [address] Ignition Expert: Luis Solis MD Urinalysis w/ Microon 2021 Bacteria MANY Abnormal NONE [facility] Comment on above: Performed By: #### H H, BMPX #### [address] [address] Ignition Expert: Luis Solis MD Bilirubin, SemiQt,Ur Negative Normal NEG [facility] Comment on above: Performed By: #### H H, BMPX #### [address] [address] Ignition Expert: Luis Solis MD Blood, Urine Negative Normal NEG [facility] Comment on above: Performed By: #### H H, BMPX #### [address] [address] Ignition Expert: Luis Solis MD Casts 0 TO 2 HYALINE Normal 0-8 [facility] Comment on above: Result Comment: Refe rence range defined for non-centrifuged specimen. Performed By: #### H H, BMPX #### [address] [address] Ignition Expert: Luis Solis MD Clarity (U) Cloudy Abnormal CLEAR [facility] Comment on above: Performed By: #### H H, BMPX #### [address] [address] Ignition Expert: Luis Solis MD Color (U) Yellow Normal YEL [facility] Comment on above: Performed By: #### H H, BMPX #### [facility] [employer] [address] [place] [address] Ignition Expert: Luis Solis MD Epithelial cells LM Ql (Urine sed) 5 TO 10 Normal 0-5 [facility] Comment on above: Performed By: #### H H, BMPX #### [facility] [employer] [address] [place] [address] Ignition Expert: Luis Solis MD Glucose Ql (U) 2+ Abnormal NEG [facility] Comment on above: Performed By: #### H H, BMPX #### [facility] [employer] [address] [place] [address] Ignition Expert: Luis Solis MD Ketones Ql (U) TRACE Abnormal NEG [facility] Comment on above: Performed By: #### H H, BMPX #### [address] [address] Ignition Expert: Luis Solis MD Leukocyte esterase Test strip Ql (U) TRACE Abnormal NEG [facility] Comment on above: Performed By: #### H H, BMPX #### [address] [address] Ignition Expert: Luis Solis MD Nitrite,Ur Negative Normal NEG [facility] Comment on above: Performed By: #### H H, BMPX #### [facility] [employer] [address] [place] [address] Ignition Expert: Luis Solis MD PH,Ur 5.5 Normal 5.0-8.0 [facility] Comment on above: Performed By: #### H H, BMPX #### [facility] [employer] [address] [place] [address] Ignition Expert: Luis Solis MD Protein Ql (U) TRACE Abnormal NEG [facility] Comment on above: Performed By: #### H H, BMPX #### [facility] [place] [address] Ignition Expert: Luis Solis MD Spec. [place],Ur 1.018 Normal 1.005-1.030 [facility] Comment on above: Performed By: #### H H, BMPX #### [facility] [employer] [address] [place] [address] Ignition Expert: Luis Solis MD Urine RBC's 0 TO 2 Normal 0-4 [facility] Comment on above: Result Comment: Refe rence range defined for non-centrifuged specimen. Performed By: #### H H, BMPX #### [facility] [employer] [address] [place] [address] Ignition Expert: Luis Solis MD Urine WBC's 10 TO 20 Normal 0-5 [facility] Comment on above: Performed By: #### H H, BMPX #### [facility] [employer] [address] [place] [address] Ignition Expert: Luis Solis MD Urobilinogen,Ur Normal Normal NORM [facility] Comment on above: Performed By: #### H H, BMPX #### [facility] [employer] [address] [place] [address] Ignition Expert: Luis Solis MD XR CHEST PORTABLEon 09-28-20 [...] Garth Herr MD 09/28/22 Final result Normal [facility] CT BRAIN WO CONTRASTon 03-31 CT BRAIN WO CONTRAST [facility] Department of Radiology [address] [place] [id number] ===== Patient Name: CUCA GOODWIN : 1945 Sex: F Age: Race: White Pt. 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 Electronically signed: Mari Chavez. Transcribed by: [email or web address], User Resident: Electronically Signed by: MARI CHAVEZ @ 03/31/2022 03:46 PM Normal [facility] Comment on above: Order Comment: hydro cephalus s/p vp patient shunt DEAN OF GRADUATE STUDIES SHUNT SERIESon 03-31-2022 DEAN OF GRADUATE STUDIES SHUNT SERIES [facility] Department of Radiology [address] [place] [id number] ===== Patient Name: CUCA GOODWIN : [...] , Ordering Provider - A NIELS MSN BAG HANGER , Exam: DEAN OF GRADUATE STUDIES SHUNT SERIES ===== DEAN OF GRADUATE STUDIES SHUNT SERIES HISTORY: Shunt evaluation. COMPARISON: 09/17/2020. [...] described. Electronically signed: Lam Chew. Transcribed by: [email or web address], User Resident: Electronically Signed by: LAM CHEW @ 04/03/2022 08:50 AM Normal [facility] Comment on above: Order Comment: , .br E.brEr/o kinking or discontinuity of shunt tubing and do image perpendicularl to valve to check OP , .brr/o kinking or discontinuity of shunt tubing and do image perpendicularl to valve to check OP , , , Ordering Provider - Danielle RAWLS BAG HANGER , Lipid Profileon 03-26-2021 Cholesterol [Mass/Vol] 117 mg/dL Normal <[address] [facility] Comment on above: Result Comment: Cholesterol Guidelines: <200 Desirable 200-240 Borderline >240 Undesirable Performed By: #### L IPR #### [employer] [address] [place] [address] Ignition Expert: Luis Solis MD Cholesterol in HDL [Mass/Vol] 39 mg/dL Low >[address] [facility] Comment on above: Result Comment: HDL Guidelines: <40 Undesirable 40-59 Borderline >59 Desirable Performed By: #### L IPR #### [facility] [facility] [place], [place] [phone] Ignition Expert: Luis Solis MD Cholesterol in LDL [Mass/Vol] 62 mg/dL Normal 0-[address] [facility] Comment on above: Result Comment: LDL Guidelines: <100 Desirable 100-129 Near to/above Desirable 130-159 Borderline >159 Undesirable Direct (measured) LDL and calculated LDL are not interchangeable tests. Performed By: #### L IPR #### [id number] [place] [address] Ignition Expert: Luis Solis MD Cholesterol.total/C holesterol in HDL [Mass ratio] 3.0 {ratio} Normal <[address] [facility] Comment on above: Performed By: #### L IPR #### [id number] [place] [address] Ignition Expert: Luis Solis MD Triglyceride [Mass/Vol] 79 mg/dL Normal <[address] [facility] Comment on above: Result Comment: Triglyceride Guidelines: <150 Desirable 150-199 Borderline 200-499 High >499 Very high Based on AHA Guidelines for fasting triglyceride, August 2012. Performed By: #### L IPR #### [address] [address] Ignition Expert: Luis Solis MD Cholesterol,VLDL NOT REPORTED Normal [address] [facility] Comment on above: Performed By: #### L IPR #### [address] [address] Ignition Expert: Luis Solis MD Uric Acidon 03-24-2021 Urate [Mass/Vol] 6.8 mg/dL High 2.4-5.7 [facility] Comment on above: Performed By: #### U RI #### [facility] [address] [place] [address] Ignition Expert: Giovanny Carpenter MD Uric AcidOrdered By: Lakeshia Henriquez on 03-24-2021 Interpretation and review of laboratory results Abnormal [facility] [employer]: Urate [Mass/Vol] 6.8 mg/dL High 2.4 - 5.7 mg/dL [facility] [employer]: CBC AUTO DIFFon 03-20-2021 BASO # 0.0 103/ul Normal 0.0-0.1 [facility] Comment on above: Performed By: #### C BC #### [facility] [address] [place], [place] [address] Ghulam Amy Basophils/100 WBC (Bld) 0.4 % Normal 0.2-2.0 [facility] Comment on above: Performed By: #### C BC #### [facility] [address] [place] [address] Ghulam Amy EO # 0.4 103/ul Normal 0.0-0.7 [facility] Comment on above: Performed By: #### C BC #### [facility] [address] [place] [address] Ghulam Amy Eosinophils/100 WBC (Bld) 4.3 % Normal 0.9-7.0 [facility] Comment on above: Performed By: #### C BC #### [facility] [address] [place] [address] Ghulam Amy Erythrocyte distribution width (RBC) [Ratio] 15.9 % Critically high 11.0-15.0 [facility] Comment on above: Performed By: #### C BC #### [facility] [address] [place] [address] Ghulam Amy Hematocrit (Bld) [Volume fraction] 28.5 % Critically low 36.0-48.0 [facility] Comment on above: Performed By: #### C BC #### [facility] [address] [place] [address] Ghulam Amy Hemoglobin (Bld) [Mass/Vol] 8.9 g/dL Critically low 12.0-16.0 [facility] Comment on above: Performed By: #### C BC #### [facility] [address] [place] [address] Ghulam Amy IG # 0.04 10e3/ul Critically high 0.00-0.03 [facility] Comment on above: Performed By: #### C BC #### [facility] [address] [place] [address] Ghulam Amy IG % 0.4 % Normal 0.0-0.5 [facility] Comment on above: Performed By: #### C BC #### [facility] [address] [place] [address] Ghulam Amy LYMPH # 2.2 103/ul Normal 1.2-3.8 [facility] Comment on above: Performed By: #### C BC #### [facility] [address] [place], [place] [phone] Ghulam Amy Lymphocytes/100 WBC (Bld) 21.9 % Normal 20.5-60.0 [facility] Comment on above: Performed By: #### C BC #### [facility] [address] [place], [place] [phone] Ghulam Amy MANUAL DIFF REQ NO Normal [facility] Comment on above: Performed By: #### C BC #### [facility] [address] [place], [place] [phone] Ghulam Amy MCH (RBC) [Entitic mass] 27.1 pg Normal 26.7-34.0 [facility] Comment on above: Performed By: #### C BC #### [facility] [address] [place], [place] [phone] Ghulamgabriela Reyes MCHC (RBC) [Mass/Vol] 31.2 g/dL Normal 29.9-35.2 [facility] Comment on above: Performed By: #### C BC #### [facility] [address] [place], [place] [phone] Ghulam Amy MCV (RBC) [Entitic vol] 86.9 fL Normal 81.0-99.0 [facility] Comment on above: Performed By: #### C BC #### [facility] [address] [place], [place] [phone] Ghulam Amy MONO # 1.0 103/ul Critically high 0.3-0.8 [facility] Comment on above: Performed By: #### C BC #### [facility] [address] [place], [place] [phone] Ghulam Amy Monocytes/100 WBC (Bld) 10.1 % Normal 1.7-12.0 [facility] Comment on above: Performed By: #### C BC #### [facility] [address] [place] [address] Ghulam Amy NEUT # 6.2 103/ul Normal 1.4-6.5 [facility] Comment on above: Performed By: #### C BC #### [facility] [address] [place], [place] [address] Ghulam Reyes Neutrophils/100 WBC (Bld) 62.9 % Normal 43.0-75.0 [facility] Comment on above: Performed By: #### C BC #### [facility] [address] [place], [place] [address] Ghulamgabriela Reyes Platelet mean volume (Bld) [Entitic vol] 10.2 fL Normal 9.5-13.5 [facility] Comment on above: Performed By: #### C BC #### [facility] [address] [place], [place] [address] Ghulamgabriela Sotoen PLT 289 103/ul Normal 150-450 [facility] Comment on above: Performed By: #### C BC #### [facility] [address] [place] [address] Ghulam Amy RBC 3.28 106/ul Critically low 4.20-5.40 [facility] Comment on above: Performed By: #### C BC #### [facility] [address] [place] [address] Ghulamgabriela Sotoen WBC 9.9 103/ul Normal 4.0-11.0 [facility] Comment on above: Performed By: #### C BC #### [facility] [address] [place] [address] Ghulam Reyes PROF 14(COMP METB)on 021 Albumin [Mass/Vol] 2.8 g/dL Critically low 3.5-5.0 [facility] Comment on above: Performed By: #### C MP #### [facility] [address] [place] [address] Ghulamgabriela Reyes Albumin/Globulin [Mass ratio] 0.6 {ratio} Normal [facility] Comment on above: Performed By: #### C MP #### [facility] [address] [place], [place] [address] Ghulam Amy ALP [Catalytic activity/Vol] 95 U/L Normal 38-126 [facility] Comment on above: Performed By: #### C MP #### [facility] [address] [place] [phone] Ghulam Amy ALT [Catalytic activity/Vol] 16 U/L Normal 9-52 [facility] Comment on above: Performed By: #### C MP #### [facility] [address] [place] [phone] Ghulam Amy Anion gap [Moles/Vol] 11.6 mmol/L Normal [facility] Comment on above: Performed By: #### C MP #### [facility] [address] [place] [address] Ghulam Amy AST [Catalytic activity/Vol] 13 U/L Critically low 14-36 [facility] Comment on above: Performed By: #### C MP #### [facility] [address] [place] [address] Ghulam Amy Bilirubin [Mass/Vol] 0.4 mg/dL Normal 0.2-1.3 [facility] Comment on above: Performed By: #### C MP #### [facility] [address] [place] [address] Ghulam Amy Calcium [Mass/Vol] 8.9 mg/dL Normal 8.4-10.2 [facility] Comment on above: Performed By: #### C MP #### [facility] [address] [place] [address] Ghulam Amy Chloride [Moles/Vol] 103 mmol/L Normal 98-107 [facility] Comment on above: Performed By: #### C MP #### [facility] [address] [place], [place] [phone] Ghulam Amy CO2 [Moles/Vol] 27.4 mmol/L Normal 22.0-30.0 [facility] Comment on above: Performed By: #### C MP #### [facility] [address] [place], [place] [phone] Ghulam Amy Creatinine [Mass/Vol] 1.86 mg/dL Critically high 0.52-1.04 [facility] Comment on above: Performed By: #### C MP #### [facility] [address] [place], [place] [phone] Ghulam Amy EGFR-AF ESTONIAN 32 mL/min/1.73m2 Critically low >=60 [facility] Comment on above: Performed By: #### C MP #### [facility] [address] [place] [phone] Ghulam Amy EGFR-NON AF ESTONIAN 26 mL/min/1.73m2 Critically low >=60 [facility] Comment on above: Performed By: #### C MP #### [facility] [address] [place] [phone] Ghulam Amy Globulin (S) [Mass/Vol] 4.6 g/dL Normal [facility] Comment on above: Performed By: #### C MP #### [facility] [address] [place] [address] Ghulam Amy Glucose [Mass/Vol] 174 mg/dL Critically high 74-106 [facility] Comment on above: Performed By: #### C MP #### [facility] [address] [place] [address] Ghulam Amy Potassium [Moles/Vol] 4.0 mmol/L Normal 3.4-5.0 [facility] Comment on above: Performed By: #### C MP #### [facility] [address] [place], [place] [phone] Ghulam Amy Protein [Mass/Vol] 7.4 g/dL Normal 6.1-8.2 [facility] Comment on above: Performed By: #### C MP #### [facility] [address] [place], [place] [phone] Ghulam Amy Sodium [Moles/Vol] 138 mmol/L Normal 137-145 [facility] Comment on above: Performed By: #### C MP #### [facility] [address] [place] [phone] Ghulam Amy Urea nitrogen [Mass/Vol] 24.0 mg/dL Critically high 7.0-17.0 [facility] Comment on above: Performed By: #### C MP #### [facility] [address] [place] [phone] Ghulam Amy Urea nitrogen/Creatinine [Mass ratio] 12.9 mg/mg Normal [facility] Comment on above: Performed By: #### C MP #### [facility] [address] [place] [address] Ghulam Amy RESPIRATORY PANEL PLUSon Adenovirus Not detected Normal NOT DETECTED [facility] Comment on above: Performed By: #### R SPLUS #### [facility] [address] [place] [address] Hgulam Amy B. Parapertusis Not detected Normal NOT DETECTED [facility] Comment on above: Performed By: #### R SPLUS #### [facility] [address] [place] [address] Ghulam Amy B. Pertussis Not detected Normal NOT DETECTED [facility] Comment on above: Performed By: #### R SPLUS #### [facility] [address] [place] [address] Ghulam Amy Chlamydia Pneumoniae Not detected Normal NOT DETECTED [facility] Comment on above: Performed By: #### R SPLUS #### [facility] [address] [place] [address] Ghualm Amy Coronavirus 229E Not detected Normal NOT DETECTED [facility] Comment on above: Performed By: #### R SPLUS #### [facility] [address] [place] [address] Ghulam Amy Coronavirus HKU1 Not detected Normal NOT DETECTED [facility] Comment on above: Performed By: #### R SPLUS #### [facility] [address] [place] [address] Ghulam Amy Coronavirus NL63 Not detected Normal NOT DETECTED [facility] Comment on above: Performed By: #### R SPLUS #### [facility] [address] [place] [address] Ghulam Amy Coronavirus OC43 Not detected Normal NOT DETECTED [facility] Comment on above: Performed By: #### R SPLUS #### [facility] [address] [place] [address] Ghulam Amy Influenza A H1 2009 Not detected Normal NOT DETECTED [facility] Comment on above: Performed By: #### R SPLUS #### [facility] [address] [place] [address] Ghulam Amy Influenza B Not detected Normal NOT DETECTED [facility] Comment on above: Performed By: #### R SPLUS #### [facility] [address] [place] [address] Ghulam Amy Metapneumovirus Not detected Normal NOT DETECTED [facility] Comment on above: Performed By: #### R SPLUS #### [facility] [address] [place] [address] Ghulam Amy Mycoplas. Pneumoniae Not detected Normal NOT DETECTED [facility] Comment on above: Performed By: #### R SPLUS #### [facility] [address] [place] [address] Ghulam Amy Parainfluenza 1 Not detected Normal NOT DETECTED [facility] Comment on above: Performed By: #### R SPLUS #### [facility] [address] [place] [address] Ghulam Amy Parainfluenza 2 Not detected Normal NOT DETECTED [facility] Comment on above: Performed By: #### R SPLUS #### [facility] [address] [place] [address] Ghulam Amy Parainfluenza 3 Not detected Normal NOT DETECTED [facility] Comment on above: Performed By: #### R SPLUS #### [facility] [address] [place] [address] Ghulam Amy Parainfluenza 4 Not detected Normal NOT DETECTED [facility] Comment on above: Performed By: #### R SPLUS #### [facility] [address] [place] [address] Ghulam Amy Rhino/Enterovirus Not detected Normal NOT DETECTED [facility] Comment on above: Performed By: #### R SPLUS #### [facility] [address] [place] [address] Ghulamgabriela Reyes RP2 Header 1 RESPIRATORY PANEL: VIRUSES Normal [facility] Comment on above: Performed By: #### R SPLUS #### [facility] [address] [place] [address] Ghulam Reyes RP2 Header 2 RESPIRATORY PANEL: BACTERIA Normal [facility] Comment on above: Performed By: #### R SPLUS #### [facility] [address] [place] [address] Ghulam Reyes RP2 Header 4 EUA SEE BELOW Normal [facility] Comment on above: Result Comment: This test is not yet approved or cleared by the [place] FDA. When there are no FDA-approved or cleared tests available, and other criteria are met, FDA can make tests available under an emergency access mechanism called an Emergency Use Authorization (EUA). The EUA for this test is supported by the [employer] Designer of Health and Human Service?s (HHS?s) declaration [...] used). Performed By: #### R SPLUS #### [facility] [address] [place] [address] [facility] RSV Not detected Normal NOT DETECTED [facility] Comment on above: Performed By: #### R SPLUS #### [facility] [address] [place] [address] Ghulam Amy SARS-CoV-2 (COVID-19) RNA SIRI+probe Ql (Unsp spec) Not detected Normal NOT DETECTED [facility] Comment on above: Performed By: #### R SPLUS #### [facility] [address] [place] [address] Ghulam Amy URIC ACID SERUMon 03-20-2021 Urate [Mass/Vol] 7.4 mg/dL Critically high 2.5-6.2 [facility] Comment on above: Performed By: #### U GIRISH #### [facility] [address] [place] [address] Ghulam Amy CBC AUTO DIFFon 03-19-2021 BASO # 0.0 103/ul Normal 0.0-0.1 [facility] Comment on above: Performed By: #### C BC #### [facility] [address] [id number] Ghulam Amy Basophils/100 WBC (Bld) 0.3 % Normal 0.2-2.0 [facility] Comment on above: Performed By: #### C BC #### [facility] [address] [id number] Ghulam Amy EO # 0.1 103/ul Normal 0.0-0.7 [facility] Comment on above: Performed By: #### C BC #### [facility] [address] [id number] Ghulam Amy Eosinophils/100 WBC (Bld) 0.9 % Normal 0.9-7.0 [facility] Comment on above: Performed By: #### C BC #### [facility] [address] [place] [address] Ghulam Amy Erythrocyte distribution width (RBC) [Ratio] 15.5 % Critically high 11.0-15.0 [facility] Comment on above: Performed By: #### C BC #### [facility] [address] [place], [place] [id number] Ghulam Amy Hematocrit (Bld) [Volume fraction] 28.1 % Critically low 36.0-48.0 [facility] Comment on above: Performed By: #### C BC #### [facility] [address] [place], [place] [id number] Ghulam Amy Hemoglobin (Bld) [Mass/Vol] 8.9 g/dL Critically low 12.0-16.0 [facility] Comment on above: Performed By: #### C BC #### [facility] [address] [id number] Ghulam Amy IG # 0.05 10e3/ul Critically high 0.00-0.03 [facility] Comment on above: Performed By: #### C BC #### [facility] [address] [id number] Ghulam Amy IG % 0.5 % Normal 0.0-0.5 [facility] Comment on above: Performed By: #### C BC #### [facility] [address] [id number] Ghulam Amy LYMPH # 1.9 103/ul Normal 1.2-3.8 [facility] Comment on above: Performed By: #### C BC #### [facility] [address] [place], [place] [id number] Ghulam Amy Lymphocytes/100 WBC (Bld) 17.2 % Critically low 20.5-60.0 [facility] Comment on above: Performed By: #### C BC #### [facility] [address] [place], [place] [id number] Ghulam Amy MANUAL DIFF REQ NO Normal [facility] Comment on above: Performed By: #### C BC #### [facility] [address] [place] [address] Ghulam Amy MCH (RBC) [Entitic mass] 27.1 pg Normal 26.7-34.0 [facility] Comment on above: Performed By: #### C BC #### [facility] [address] [place], [place] [id number] Ghulam Amy MCHC (RBC) [Mass/Vol] 31.7 g/dL Normal 29.9-35.2 [facility] Comment on above: Performed By: #### C BC #### [facility] [address] [place], [place] [id number] Ghulam Amy MCV (RBC) [Entitic vol] 85.4 fL Normal 81.0-99.0 [facility] Comment on above: Performed By: #### C BC #### [facility] [address] [place], [place] [id number] Ghulma Amy MONO # 1.0 103/ul Critically high 0.3-0.8 [facility] Comment on above: Performed By: #### C BC #### [facility] [address] [place], [place] [id number] Ghulam Amy Monocytes/100 WBC (Bld) 9.5 % Normal 1.7-12.0 [facility] Comment on above: Performed By: #### C BC #### [facility] [address] [address] Ghulam Reyes NEUT # 7.7 103/ul Critically high 1.4-6.5 [facility] Comment on above: Performed By: #### C BC #### [facility] [address] [id number] Ghulam Reyes Neutrophils/100 WBC (Bld) 71.6 % Normal 43.0-75.0 [facility] Comment on above: Performed By: #### C BC #### [facility] [address] [id number] Ghulam Reyes Platelet mean volume (Bld) [Entitic vol] 10.1 fL Normal 9.5-13.5 [facility] Comment on above: Performed By: #### C BC #### [facility] [address] [address] Ghulam Reyes PLT 285 103/ul Normal 150-450 [facility] Comment on above: Performed By: #### C BC #### [facility] [address] [address] Ghulam Reyes RBC 3.29 106/ul Critically low 4.20-5.40 [facility] Comment on above: Performed By: #### C BC #### [facility] [address] [address] Ghulam Reyes WBC 10.7 103/ul Normal 4.0-11.0 [facility] Comment on above: Performed By: #### C BC #### [facility] [address] [id number] Ghulam Reyes MAGNESIUMon 03-19-2021 Magnesium [Mass/Vol] 1.9 mg/dL Normal 1.6-2.3 [facility] Comment on above: Performed By: #### M G ####[facility] [address] [id number] Reyes POINT OF CARE GLUCOSEon Glucose [Mass/Vol] 68 mg/dL Critically low 74-106 [facility] Comment on above: Performed By: #### P OCGLUC #### [facility] [address] [id number] Ghulam Amy Glucose [Mass/Vol] 91 mg/dL Normal 74-106 [facility] Comment on above: Performed By: #### P OCGLUC #### [facility] [address] [place], [place] [id number] Ghulam Amy Glucose [Mass/Vol] 136 mg/dL Critically high 74-106 T [facility] Comment on above: Performed By: #### P OCGLUC #### [facility] [address] [place], [place] [id number] Ghulam Amy PROF 14(COMP METB)on 021 Albumin [Mass/Vol] 2.7 g/dL Critically low 3.5-5.0 [facility] Comment on above: Performed By: #### C MP #### [facility] [address] [place], [place] [id number] Ghulam Amy Albumin/Globulin [Mass ratio] 0.6 {ratio} Normal [facility] Comment on above: Performed By: #### C MP #### [facility] [address] [place], [place] [id number] Ghulam Amy ALP [Catalytic activity/Vol] 99 U/L Normal 38-126 [facility] Comment on above: Performed By: #### C MP #### [facility] [address] [place], [place] [id number] Ghulam Amy ALT [Catalytic activity/Vol] 14 U/L Normal 9-52 [facility] Comment on above: Performed By: #### C MP #### [facility] [address] [place], [place] [id number] Ghulam Amy Anion gap [Moles/Vol] 10.5 mmol/L Normal [facility] Comment on above: Performed By: #### C MP #### [facility] [address] [place], [place] [id number] Ghulam Amy AST [Catalytic activity/Vol] 13 U/L Critically low 14-36 [facility] Comment on above: Performed By: #### C MP #### [facility] [address] [place] [address] Ghulam Amy Bilirubin [Mass/Vol] 0.5 mg/dL Normal 0.2-1.3 [facility] Comment on above: Performed By: #### C MP #### [facility] [address] [id number] Ghulam Amy Calcium [Mass/Vol] 9.1 mg/dL Normal 8.4-10.2 [facility] Comment on above: Performed By: #### C MP #### [facility] [address] [address] Ghulam Amy Chloride [Moles/Vol] 104 mmol/L Normal 98-107 [facility] Comment on above: Performed By: #### C MP #### [facility] [address] [address] Ghulam Amy CO2 [Moles/Vol] 27.2 mmol/L Normal 22.0-30.0 [facility] Comment on above: Performed By: #### C MP #### [facility] [address] [address] Ghulam Amy Creatinine [Mass/Vol] 1.57 mg/dL Critically high 0.52-1.04 [facility] Comment on above: Performed By: #### C MP #### [facility] [address] [place], [place] [id number] Ghulam Amy EGFR-AF ESTONIAN 39 mL/min/1.73m2 Critically low >=60 [facility] Comment on above: Performed By: #### C MP #### [facility] [address] [id number] Ghulam Amy EGFR-NON AF ESTONIAN 32 mL/min/1.73m2 Critically low >=60 [facility] Comment on above: Performed By: #### C MP #### [facility] [address] [id number] Ghulam Amy Globulin (S) [Mass/Vol] 4.6 g/dL Normal [facility] Comment on above: Performed By: #### C MP #### [facility] [address] [id number] Ghulam Amy Glucose [Mass/Vol] 209 mg/dL Critically high 74-106 [facility] Comment on above: Performed By: #### C MP #### [facility] [address] [place], [place] [address] Ghulam Amy Potassium [Moles/Vol] 3.7 mmol/L Normal 3.4-5.0 [facility] Comment on above: Performed By: #### C MP #### [facility] [address] [place], [place] [address] Ghulam Amy Protein [Mass/Vol] 7.3 g/dL Normal 6.1-8.2 [facility] Comment on above: Performed By: #### C MP #### [facility] [address] [place], [place] [address] Ghulam Amy Sodium [Moles/Vol] 138 mmol/L Normal 137-145 [facility] Comment on above: Performed By: #### C MP #### [facility] [address] [place], [place] [address] Ghulam Amy Urea nitrogen [Mass/Vol] 28.0 mg/dL Critically high 7.0-17.0 [facility] Comment on above: Performed By: #### C MP #### [facility] [address] [place], [place] [address] Ghulam Amy Urea nitrogen/Creatinine [Mass ratio] 17.8 mg/mg Normal [facility] Comment on above: Performed By: #### C MP #### [facility] [address] [place], [place] [address] Ghulam Amy Vital Signs Date Time Vital Sign Value Performing Clinician Facility 02-09-2024 13:00-0400 Body height 165.1 cm Pam RICHEY Work Phone: [facility] 02-09-2024 13:00-0400 Body mass index (BMI) [Ratio] 33.35 kg/m2 Pam RICHEY Work Phone: [facility] 02-09-2024 13:00-0400 Body temperature 98.2 [degF] Pam RICHEY Work Phone: [facility] 02-09-2024 13:00-0400 Body weight 90.9 kg Pam Ley APRN-BAG HANGER Work Phone: [facility] [employer] [facility] 02-09-2024 13:00-0400 Diastolic blood pressure 72 mm[Hg] Pam Ley APRN-BAG HANGER Work Phone: [facility] [employer] [facility] 02-09-2024 13:00-0400 Heart rate 79 /min Pam Ley APRN-BAG HANGER Work Phone: [facility] 02-09-2024 13:00-0400 Respiratory rate 20 /min Pam Ley APRN-BAG HANGER Work Phone: [facility] 02-09-2024 13:00-0400 SaO2% (BldA) [Mass fraction] 97 % Pam Ley APRN-BAG HANGER Work Phone: [facility] [employer] [facility] 02-09-2024 13:00-0400 Systolic blood pressure 134 mm[Hg] Pam Ley APRN-BAG HANGER Work Phone: [facility] 12-15-2023 14:51-0500 Body height 165.1 cm Pam Ley APRN-BAG HANGER Work Phone: [facility] 12-15-2023 14:51-0500 Body mass index (BMI) [Ratio] 31.02 kg/m2 Pam Ley APRN-BAG HANGER Work Phone: [facility] 12-15-2023 14:51-0500 Body temperature 98.29 [degF] Pam Ley APRN-BAG HANGER Work Phone: [facility] 12-15-2023 14:51-0500 Body weight 84.54 kg Pam Ley APRN-BAG HANGER Work Phone: [facility] 12-15-2023 14:51-0500 Diastolic blood pressure 60 mm[Hg] Pam Ley PRODUCT 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 HANGER Work Phone: [facility] 12-15-2023 14:51-0500 Heart rate 89 /min Pam Ley APRN-BAG HANGER Work Phone: [facility] 12-15-2023 14:51-0500 SaO2% (BldA) [Mass fraction] 94 % Pam Ley APRN-BAG HANGER Work Phone: [facility] [employer] [facility] 12-15-2023 14:51-0500 Systolic blood pressure 100 mm[Hg] Pam Ley APRN-BAG HANGER Work Phone: [facility] 11-25-2023 13:56-0500 Body height 165.1 cm Rambo Muñoz MD Work Phone: [facility] 11-25-2023 13:56-0500 Body mass index (BMI) [Ratio] 31.45 kg/m2 Rambo Muñoz MD Work Phone: [facility] [employer] [facility] 11-25-2023 13:56-0500 Body temperature 99 [degF] Rambo Muñoz MD Work Phone: [facility] [employer] [facility] 11-25-2023 13:56-0500 Body weight 85.73 kg Rambo Muñoz MD Work Phone: [facility] 11-25-2023 13:56-0500 Diastolic blood pressure 57 mm[Hg] Rambo Muñoz MD Work Phone: [facility] [employer] [facility] 11-25-2023 13:56-0500 Heart rate 65 /min Rambo Muñoz MD Work Phone: [facility] 11-25-2023 13:56-0500 Respiratory rate 16 /min Rambo Muñoz MD Work Phone: [facility] [employer] [facility] 11-25-2023 13:56-0500 SaO2% (BldA) [Mass fraction] 91 % Rambo Muñoz MD Work Phone: [facility] [employer] [facility] 11-25-2023 13:56-0500 Systolic blood pressure 141 mm[Hg] Rambo Muñoz MD Work Phone: [facility] 01-13-2023 07:13-0500 Body temperature 98.01 [degF] Luna Daniels MD Work Phone: [employer] 01-13-2023 07:13-0500 Diastolic blood pressure 54 mm[Hg] Luna Daniels MD Work Phone: [facility] [employer] 01-13-2023 07:13-0500 Heart rate 57 /min Luna Daniels MD Work Phone: [facility] [employer] 01-13-2023 07:13-0500 Respiratory rate 18 /min Luna Daniels MD Work Phone: [employer] 01-13-2023 07:13-0500 SaO2% (BldA) [Mass fraction] 98 % Luna Daniels MD Work Phone: [employer] 01-13-2023 07:13-0500 Systolic blood pressure 141 mm[Hg] Luna Daniels MD Work Phone: [employer] 12-11-2022 07:58-0500 Body temperature 98.8 [degF] Luna Daniels MD Work Phone: [employer] 12-11-2022 07:58-0500 Diastolic blood pressure 56 mm[Hg] Luna Daniels MD Work Phone: [employer] 12-11-2022 07:58-0500 Heart rate 85 /min Luna Daniels MD Work Phone: [employer] 12-11-2022 07:58-0500 Respiratory rate 16 /min Luna Daniels MD Work Phone: [employer] 12-11-2022 07:58-0500 SaO2% (BldA) [Mass fraction] 97 % Luna Daniels MD Work Phone: [employer] 12-11-2022 07:58-0500 Systolic blood pressure 156 mm[Hg] Luna Daniels MD Work Phone: [employer] 12-07-2022 11:44-0500 Body height 165.1 cm Luna Daniels MD Work Phone: [employer] 12-07-2022 11:44-0500 Body mass index (BMI) [Ratio] 34.61 kg/m2 Luna Daniels MD Work Phone: [employer] 12-07-2022 11:44-0500 Body weight 94.35 kg Luna Daniels MD Work Phone: [employer] 11-24-2022 11:44-0500 Body height 165.1 cm Stv B [email or web address] 11-24-2022 11:44-0500 Body mass index (BMI) [Ratio] 34.95 kg/m2 St[facility] [employer] 11-24-2022 11:44-0500 Body temperature 98.4 [degF] Stv B [employer] 11-24-2022 11:44-0500 Body weight 95.25 kg Stv B [email or web address] 11-24-2022 11:44-0500 Diastolic blood pressure 45 mm[Hg] Stv B [employer] 11-24-2022 11:44-0500 Heart rate 60 /min Stv [facility] [email or web address] 11-24-2022 11:44-0500 Respiratory rate 15 /min St[facility] [employer] 11-24-2022 11:44-0500 SaO2% (BldA) [Mass fraction] 93 % St[facility] [employer] 11-24-2022 11:44-0500 Systolic blood pressure 131 mm[Hg] Stv [facility] [employer] Encounters Encounter Date Encounter Type Care Provider Facility Start: 03-16-2024 End: 03-17-[facility]24 [facility] Start: 03-09-2024 End: 03-09-2024 ambulatory RAMBO MUÑOZ [facility] Start: 03-02-2024 End: 03-02-20[facility] Start: 02-29-2024 ambulatory [facility] Start: 02-27-2024 End: 02-29-2024 Emergency department patient visit [facility] Start: 02-18-2024 End: 02-19-2024 ambulatory RAMBO MUÑOZ [facility] Start: 02-09-2024 End: 02-10-2024 ambulatory [facility] Start: 02-09-2024 End: 02-09-2024 ambulatory [facility] Start: 02-09-2024 End: 02-09-2024 Office outpatient visit 25 minutes [facility] PRODUCT 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 HANGER [facility] Comment on above: Acute cystitis witho ut hematuria (Primary Dx); Urge incontinence of urine Start: 01-10-2024 End: 01-11-2024 ambulatory [facility] Start: 01-04-2024 Maged Muñoz MD Work Phone: Stephany Carnes [facility] - Medical Oncology Comment on above: 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, unspecified estrogen receptor status ([facility]-HCC) Start: 12-15-2023 End: 12-15-2023 ambulatory [facility] Start: 12-15-2023 End: 12-15-2023 Office outpatient visit 25 minutes Pam Ley 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 [facility] Comment on above: Upper respiratory tr act infection, unspecified type (Primary Dx); Normal pressure hydrocephalus (CMS-HCC); Moderate episode of recurrent major depressive disorder (CMS-HCC); PVD (peripheral vascular disease) ([facility]-HCC); 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); Stage 3b chronic kidney disease ([facility]-HCC); Major depressive disorder in partial remission, unspecified whether recurrent ([facility]-HCC); Essential hypertension; GERD without esophagitis; 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 ([facility]-HCC) Start: 12-06-2023 Refall haines APRN-BAG HANGER Work Phone: [facility] Comment on above: Insomnia, unspecifie d type Start: 11-25-2023 End: 11-25-2023 ambulatory RAMBO MUÑOZ [facility] Start: 11-25-2023 End: 11-25-2023 Office outpatient visit 25 minutes Rambo Muñoz MD Work Phone: Stephany Carnes [facility] - [facility] On[facility] Comment on above: 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, unspecified estrogen receptor status ([facility]) (Primary Dx); 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 breast in female, estrogen receptor positive ([facility]-HCC) Start: 03-23-2023 End: 03-24-2023 ambulatory [facility] Start: 01-13-2023 End: 01-16-2023 [facility] Start: 01-13-2023 End: 01-15-2023 Subsequent hospital visit by physician Luna Daniels MD Work Phone: [id number] Observation Comment on above: Arrived Severe aortic valve stenosis (Primary Dx); Type 2 diabetes mellitus with diabetic neuropathy, with long-term current use of insulin ([facility]); Tremors of nervous system; Family history of coronary arteriosclerosis; CHELSEA (obstructive sleep apnea) nonadherent with cpap; Stage 3a chronic kidney disease ([facility]); Coronary artery disease involving [place] coronary artery of [place] heart without angina pectoris Aortic valve stenosi s, etiology of cardiac valve disease unspecified Start: 12-07-2022 End: 12-11-2022 ambulatory LUNA DANIELS [facility] Start: 12-07-2022 End: 12-11-2022 Subsequent hospital visit by physician Luna Daniels MD Work Phone: [facility] [id number] Stepdown Comment on above: Severe aortic valve stenosis (Primary Dx) Start: 11-24-2022 End: 11-25-2022 ambulatory FLIP JHA [facility] Start: 11-24-2022 End: 11-24-2022 Subsequent hospital visit by physician Kaylin [facility] Daryl CRAVEN [facility] Outreach Worker Comment on above: Canceled (Case zulay lled) Start: 09-28-2022 End: 09-30-2022 Evaluation and management of inpatient CADEN SANCHEZ [facility] Start: 03-31-2022 End: 04-01-2022 ambulatory Vale Bowser [facility] Start: 03-26-2021 End: 03-27-2021 [facility] Start: 03-24-2021 End: 03-25-2021 ambulatory LAKESHIA HENRIQUEZ [facility] Start: 03-24-2021 End: 03-24-2021 Subsequent hospital visit by physician Caden [facility] Start: 03-19-2021 End: 03-20-2021 ambulatory PAM LEY Facility: Procedures Date Procedure Procedure Detail Performing Clinician Start: 03-16-2024 Follow-up visit Follow-up VALE BOWSER Start: 03-09-2024 Follow-up visit Follow-up RAMBO MUÑOZ Start: 03-02-2024 Follow-up visit Follow-up PAM LEY Start: 02-09-2024 Urnls dip stick/tabl et rgnt non-auto w/o micrscp Pam Ley PRODUCT 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 HANGER Work Phone: Start: 02-09-2024 Adult depression scr eening assessment Pam Ley PRODUCT 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 HANGER Work Phone: Start: 12-15-2023 Adult depression scr eening assessment Pam Ley PRODUCT 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 HANGER Work Phone: Start: 08-17-2023 Adult depression scr eening assessment Rambo Muñoz MD Work Phone: Start: 01-13-2023 Brncdilat rspse spmt ry pre&post-brncdilat admn Namrata Blair PRODUCT SCIENTIST - BAG HANGER Work Phone: Start: 01-13-2023 Ct angiography chest w/contrast/noncontrast Namrata Aguilar Radhareji [facility] Work Phone: Start: 12-11-2022 Glucose blood reagent strip Luna Daniels MD Work Phone: Start: 12-10-2022 Glucose blood reagent strip Luna Daniels MD Work Phone: Start: 12-10-2022 Glucose blood reagent strip Luna Daniels MD Work Phone: Start: 12-10-2022 Glucose blood reagent strip Luna Daniels MD Work Phone: Start: 12-10-2022 Basic metabolic pane l calcium total Rita Estrella Leos [facility] Work Phone: Start: 12-10-2022 Antibody screen Luna morales MD Work Phone: Start: 12-10-2022 End: 12-10-2022 Glucose blood reagent strip Luna Daniels MD Work Phone: Start: 12-09-2022 End: 12-09-2022 Blood count hemoglobin Luna Daniels MD Work Phone: Start: 12-09-2022 Glucose blood reagent strip Luna Daniels MD Work Phone: Start: 12-09-2022 End: 12-09-2022 Transfusion of packed red blood cells Radha Moya [facility] Work Phone: Start: 12-09-2022 Glucose blood reagent strip Luna Daniels MD Work Phone: Start: 12-09-2022 BASIC METABOLIC PANE L W/ REFLEX TO MG FOR LOW K Nadira Jin MD Start: 12-09-2022 End: 12-09-2022 Blood count hemoglobin Nadira Jin MD Start: 12-08-2022 Glucose blood reagent strip Luna Daniels MD Work Phone: Start: 12-08-2022 Blood count hemoglobin Hemindermsuryat Neil RAMIREZ Work Phone: Start: 12-08-2022 Glucose blood reagent [...] 03-24-2021 Assay of blood/uric acid Lakeshia Henriquez PRODUCT SCIENTIST - BAG HANGER Work Phone: Plan of Treatment Date Care Activity Detail Author Start: 12-15-2024 Adult BMI Follow Up Plan Adult BMI F ollow Up Plan [facility] Start: 12-15-2024 Adult BMI Screening Adult BMI Screen ing [facility] Start: 12-15-2024 Depression Screening Depression Scre ening [facility] Start: 12-15-2024 Fall Risk Screening Fall Risk Screen ing [facility] Start: 12-15-2024 Tobacco Screening Tobacco Screening [facility] Start: 11-25-2024 Adult BMI Screening Adult BMI Screen ing [facility] Start: 09-28-2024 Tobacco Screening Tobacco Screening [facility] Start: 08-31-2024 Adult BMI Follow Up Plan Adult BMI F ollow Up Plan [facility] Start: 08-17-2024 Depression Screening Depression Scre ening [facility] Start: 08-10-2024 Fall Risk Screening Fall Risk Screen ing [facility] Start: 08-10-2024 Medicare Annual Well ness Visit Medicare Annual Wellness Visit [facility] Start: 03-09-2024 End: 03-09-2024 Patient encounter procedure 03/09/2024 3:15 PM EDT Office Visit Stephany L [facility] - Medical Oncology [address] [place] [phone] Rambo Muñoz MD [address] [place] [address] [address] [place], [place] [id number] Stephany Carnes [facility] - Medical Oncology Start: 01-13-2024 End: 01-13-2024 Patient encounter procedure 01/13/2024 1:00 PM EST Office Visit [facility] - Family Medicine [address] [place] [phone] Pam Ley, PRODUCT 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 HANGER [address] [place] [address] [facility] - Family Medicine Start: 09-02-2023 Lipid panel [facility]ids [facility] Start: 02-02-2023 End: 02-02-2023 Patient encounter procedure 02/02/2023 Appointment IP Unit [facility] Public [facility] Outreach Worker Start: 01-18-2023 End: 01-14-2024 Basic metabolic 2000 panel - Serum or Plasma Basic Metabolic Panel Lab STAT Severe aortic valve stenosis Expected: 01/18/2023, Expires: 01/14/2024 [employer] Work Phone: Comment on above: Expected: 01/18/2023 , Expires: 01/14/2024 Start: 12-17-2022 End: 12-10-2023 Basic metabolic 2000 panel - Serum or Plasma Basic Metabolic Panel Lab Routine Severe aortic valve stenosis Expected: 12/17/2022, Expires: 12/10/2023 [facility] [employer] Phone: Comment on above: Expected: 12/17/2022 , Expires: 12/10/2023 Start: 12-17-2022 End: 12-10-2023 Hemoglobin and Hematocrit Hemoglobin and Hematocrit Lab Routine Severe aortic valve stenosis Expected: 12/17/2022, Expires: 12/10/2023 [employer] Phone: Comment on above: Expected: 12/17/2022 , Expires: 12/10/2023 Start: 09-28-2022 Annual Wellness Visi t (AWV) Annual Well[facility] Visit (AWV) [facility] Start: 07-16-2021 Influenza vaccination Flu vacc ine (Season Ended) [employer] Phone: Start: 04-01-2021 COVID-19 Vaccine (3 - Booster for Pfizer series) COVID-19 Vaccine (3 - Booster for Pfizer series) [facility] [employer] Start: 03-04-2021 COVID-19 Vaccine (3 - Pfizer risk series) COVID-19 Vaccine (3 - Pfizer risk series) [facility] Start: 1996 Shingles vaccine (1 of 2) Cuevas gles vaccine (1 of 2) [facility] [employer] Start: 1965 Administration of varicella zoster vaccine Zoster (Shingles) Vaccine (1 of 2) [facility] Start: 1965 DTaP,Tdap and Td Vac cines (1 - Tdap) DTaP,Tdap and Td Vaccines (1 - Tdap) [facility] Start: 1965 DTaP/Tdap/Td vaccine (1 - Tdap) DTaP/Tdap/Td vaccine (1 - Tdap) [facility] [employer] Start: 1964 Hepatitis C screening Hepatitis C sc reen [employer] Start: 1962 COVID-19 Vaccine (1) COVID-19 Vaccin e (1) [employer] Phone: Start: 1958 Depression Screen Depression Screen [employer] Start: 1946 Creatinine measurement Creatinine mo nitoring [employer] Phone: Start: 1946 Potassium monitoring Potassium monit oring [employer] Phone: End: 02-08-2025 Bacteria identified in Urine by Culture Urine culture (clean catch) Microbiology Routine Acute cystitis without hematuria 1 Occurrences starting 02/09/2024 until 02/08/2025 [employer] Phone: Comment on above: 1 Occurrences starti ng 02/09/2024 until 02/08/2025 End: 12-07-2022 Blood Bank Specimen [employer] Phone: Comment on above: Once for 1 Occurrenc es starting 12/07/2022 until 12/07/2022 End: 11-25-2024 Cancer antigen 15-3 Cancer antigen 15-3 Lab Routine 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 female breast, unspecified estrogen receptor status (CMS-HCC) every 3 months for 50 Occurrences starting 11/25/2023 until 11/25/2024 [employer] Comment on above: every 3 months for 5 0 Occurrences starting 11/25/2023 until 11/25/2024 End: 11-25-2024 Cancer antigen 27-29 Cancer antigen 27-29 Lab Routine 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 female breast, unspecified estrogen receptor status (CMS-HCC) every 3 months for 50 Occurrences starting 11/25/2023 until 11/25/2024 [employer] Comment on above: every 3 months for 5 0 Occurrences starting 11/25/2023 until 11/25/2024 End: 11-24-2022 Catheterization and angiography procedure details panel Cardiac Catheterization Cardiac Cath Routine One Time for 1 Occurrences starting 11/24/2022 until 11/24/2022 [employer] Phone: Comment on above: One Time for 1 Occur rences starting 11/24/2022 until 11/24/2022 End: 12-07-2022 Catheterization and angiography procedure details panel Cardiac Catheterization Cardiac Cath Routine One Time for 1 Occurrences starting 12/07/2022 until 12/07/2022 [employer] Phone: Comment on above: One Time for 1 Occur rences starting 12/07/2022 until 12/07/2022 End: 11-25-2024 CBC W Auto Differential panel - Blood CBC with auto diff Lab Routine 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 female breast, unspecified estrogen receptor status (CMS-HCC) every 3 months for 50 Occurrences starting 11/25/2023 until 11/25/2024 [employer] Work Phone: Comment on above: every 3 months for 5 0 Occurrences starting 11/25/2023 until 11/25/2024 End: 11-25-2024 Comprehensive metabolic 2000 panel - Serum or Plasma Comprehensive metabolic panel Lab Routine 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 female breast, unspecified estrogen receptor status (CMS-HCC) every 3 months for 50 Occurrences starting 11/25/2023 until 11/25/2024 [employer] Comment on above: every 3 months for 5 0 Occurrences starting 11/25/2023 until 11/25/2024 End: 01-13-2023 CT CARDIAC W C STC MORP CARD ONLY [employer] Phone: Comment on above: 1 Occurrences starti ng 01/13/2023 until 01/13/2023 End: 12-07-2022 EKG 12 lead EKG 12 lead ECG Routine One Time for 1 Occurrences starting 12/07/2022 until 12/07/2022 [employer] Phone: Comment on above: One Time for 1 Occur rences starting 12/07/2022 until 12/07/2022 Glucose [Mass/volume ] in Serum or Plasma POCT glucose Point of Care Testing Routine 4X Daily (AC & HS) until discontinued starting 12/07/2022 [employer] Phone: Comment on above: 4X Daily (AC & HS) u ntil discontinued starting 12/07/2022 End: 12-10-2022 Hemoglobin and Hematocrit Hemoglobin and Hematocrit Lab STAT Post Transfusion Post Transfusion Post Transfustion for 1 Occurrences starting 12/09/2022 until 12/10/2022 [employer] Phone: Comment on above: Post Transfusion Pos t Transfusion Post Transfustion for 1 Occurrences starting 12/09/2022 until 12/10/2022 Oxygen therapy [Mini mum Data Set] Initiate Oxygen Therapy Protocol Respiratory Care Routine As Needed until discontinued starting 11/24/2022 [employer] Phone: Comment on above: As Needed until disc ontinued starting 11/24/2022 Oxygen therapy [Mini mum Data Set] Initiate Oxygen Therapy Protocol Respiratory Care Routine As Needed until discontinued starting 12/07/2022 [employer] Phone: Comment on above: As Needed until disc ontinued starting 12/07/2022 Oxygen therapy [Mini mum Data Set] Initiate Oxygen Therapy Protocol Respiratory Care Routine As Needed until discontinued starting 12/07/2022 [employer] Comment on above: As Needed until disc ontinued starting 12/07/2022 End: 11-24-2022 POC CHEM8 INCLUDES CALC. ANION GAP POC CHEM8 INCLUDES CALC. ANION GAP Point of Care Testing STAT One Time for 1 Occurrences starting 11/24/2022 until 11/24/2022 [employer] Phone: Comment on above: One Time for 1 Occur rences starting 11/24/2022 until 11/24/2022 End: 12-07-2022 POC CHEM8 INCLUDES CALC. ANION GAP POC CHEM8 INCLUDES CALC. ANION GAP Point of Care Testing STAT One Time for 1 Occurrences starting 12/07/2022 until 12/07/2022 [employer] Phone: Comment on above: One Time for 1 Occur rences starting 12/07/2022 until 12/07/2022 End: 12-07-2022 PREPARE RBC (CROSSMATCH), 1 Units PREPARE RBC (CROSSMATCH), 1 Units Blood Bank STAT Once for 1 Occurrences starting 12/07/2022 until 12/07/2022 [employer] Phone: Comment on above: Once for 1 Occurrenc es starting 12/07/2022 until 12/07/2022 End: 12-08-2022 PREPARE RBC (CROSSMATCH), 1 Units PREPARE RBC (CROSSMATCH), 1 Units Blood Bank Routine Once for 1 Occurrences starting 12/08/2022 until 12/08/2022 [employer] Phone: Comment on above: Once for 1 Occurrenc es starting 12/08/2022 until 12/08/2022 End: 12-09-2022 PREPARE RBC (CROSSMATCH), 1 Units PREPARE RBC (CROSSMATCH), 1 Units Blood Bank Routine Once for 1 Occurrences starting 12/09/2022 until 12/09/2022 [employer] Phone: Comment on above: Once for 1 Occurrenc es starting 12/09/2022 until 12/09/2022 End: 12-08-2022 PREVIOUS SPECIMEN [employer] Phone: Comment on above: Once for 1 Occurrenc es starting 12/08/2022 until 12/08/2022 Immunizations Immunization Date Immunization Notes Care Provider [facility] 08-10-2023 Influenza Vaccine, Quadrivalent, Adjuvanted Rambo Muñoz MD Work Phone: [employer] 08-06-2022 Influenza Vaccine, Quadrivalent, Adjuvanted Rambo Muñoz MD [facility] Phone[facility] 08-27-2021 influenza, high dose seasonal, preservative-free Rambo [facility] 05-28-2021 pneumococcal conjuga te vaccine, 13 valent Rambo Muñoz MD [facility] Phone[facility] 02-04-2021 COVID-19, mRNA, LNP- S, PF, 30mcg/0.3mL Dose Rambo Muñoz MD Work Phone: [facility] 01-07-2021 COVID-19, mRNA, LNP- S, PF, 30mcg/0.3mL Dose Rambo Muñoz MD Work Phone: [facility] 11-25-2020 influenza, injectabl e, quadrivalent, preservative free Rambo Muñoz MD Work Phone: [facility] 08-30-2020 Influenza, High-dose , Quadrivalent Rambo Muñoz MD Work Phone: [facility] 09-14-2019 influenza, injectabl e, quadrivalent, contains preservative Rambo Muñoz MD Work Phone: [facility] 09-11-2019 influenza, injectabl e, quadrivalent, preservative free Rambo Muñoz MD Work Phone: [facility] 08-31-2018 influenza, injectabl e, quadrivalent, preservative free Rambo Muñoz MD Work Phone: [facility] 09-07-2017 influenza, injectabl e, quadrivalent, preservative free Rambo Muñoz MD Work Phone: [facility] 07-10-2015 pneumococcal polysaccharide vaccine, 23 valent Rambo Muñoz MD Work Phone: [facility] Payers Date Payer Category Payer Medicare [id number] 2022 Medicare ANTHEM MEDICARE ANTHEM MEDICARE ADVANTAGE [id number] 2022-Present [phone] [address] [place] [address] [id number] 2022 Medicare [id number] 2022 [place] [id number] 2022-Present [phone] [address] [place] [address] [id number] 2017 Medicaid [id number] 2017 Unknown [id number] 1959 Medicaid [id number] 1946 Unknown [id number] 1946 Unknown [id number] 2.16.840.1.004455.3.579.2.647 1946 Unknown [id number] 2.16.840.1.356142.3.579.2.175 1946 Unknown [id number] 2.16.840.1.771564.3.579.2.175 1946 Unknown [id number] 2.16.840.1.763967.3.579.2.175 1946 Unknown [id number] 2.16.840.1.189396.3.579.2.175 1946 Unknown [id number] 2.16.840.1.136578.3.579.2.175 1946 Unknown [id number] 2.16.840.1.617514.3.579.2.175 1946 Unknown [id number] 2.16.840.1.590633.3.579.2.175 1946 Unknown [id number] 2.16.840.1.701487.3.579.2.175 1946 Unknown [id number] 2.16.840.1.822898.3.579.2.1286 1946 Unknown [id number] 2.16.840.1.127760.3.579.2.1286 1946 Unknown [id number] 2.16.840.1.488072.3.579.2.1286 1946 Unknown [id number] 2.16.840.1.232172.3.579.2.1286 1946 Unknown [id number] 2.16.840.1.275645.3.579.2.1286 1946 Unknown [id number] 2.16.840.1.439650.3.579.2.1286 1946 Unknown [id number] 2.16.840.1.461955.3.579.2.1286 1946 Unknown [id number] 2.16.840.1.193311.3.579.2.1286 1946 Unknown [id number] 2.16.840.1.094276.3.579.2.1286 1946 Unknown [id number] 2.16.840.1.156525.3.579.2.1286 1946 Unknown [id number] 2.16.840.1.408751.3.579.2.128 1946 Unknown [id number] 2.16.840.1.465326.3.579.2.1286 Social History Date Type Detail Facility Start: 10-15-2014 End: 10-05-2022 Tobacco smoking status [facility] Start: 10-15-2014 End: 02-09-2024 Alcohol intake Current non-drinker of alcohol (finding) [employer] Phone: Start: 10-02-2014 [facility] [employer] Phone: Start: 1945 Sex Assigned At Not on file [employer] Phone: Start: 11-14-2022 End: 12-07-2022 Exposure to SARS-CoV-2 (event) Not sure [facility] [employer] Start: 10-05-2022 Tobacco use and exposure Smokeless tobacco non-user [facility] Start: 10-05-2022 End: 02-09-2024 History of Social function [facility] Start: 10-05-2022 End: 02-09-2024 Social connection and isolation panel [facility] Do you belong to any clubs or organizations such as tenriism groups, unions, fraternal or athletic groups, or school groups? Yes [facility] Are you now , , , , never or living with a partner? Never [facility] How often to you hav e a drink containing alcohol? Never [facility] How many standard dr inks containing alcohol do you have on a typical day? Patient does not drink [facility] Do you feel stress - tense, restless, nervous, or anxious, or unable to sleep at night because your mind is troubled all the time - these days [OSQ] Not at all [facility] Start: 03-21-2020 Gender identity Identifies as female gender (finding) [facility] Start: 10-05-2022 Sexual orientation Heterosexual (finding) [facility] Medical Equipment Procedure Code Equipment Code Equipment Origin al Text Equipment Identifier Dates Valve Aor Evolut Fx 26mm - [id number] - [id number] Start: 08-17-2023 Monitor blood wahl gars four times daily and as needed [id number] Start: 10-11-2020 USE FOUR TIMES A DAY. ICD 10 E11.29 [id number] Start: 08-31-2022 4 applicators by miscellaneous route See Admin Instructions. 4 times daily injection [id number] Start: 04-21-2021 Goals Date Patient Goal Desired [...] on stairs Contact your local community or senior center for information on exercise, fall prevention programs, or options for improving home safety. Personal health goal Comment on above: Formatting of this n ote might be different from the original. Evaluation of progress towards goal: Safe dc transition to SNF pending clinical course. Clinical Notes 03-20-2021 to 03-16-2024 KIADEN Werner - 02/09/2024 1:00 PM LISA Almodovar CNP - 12/15/2023 3:00 PM Jan Muñoz MD - 11/25/2023 2:30 PM ESTPatient Instructions Note Date & Type Note Facility 03-16-2024 Note SUBJECTIVE: Chief complaint: NPH with DEAN OF [employer] shunt, recent stroke. History of present illness: Was hospitalized at outside hospital few days ago when she had experienced abrupt onset of dysarthria as well as facial droop. Was seen at [facility]. Providers there had requested an MRI of the brain and were told by [facility] neurosurgery that she could have an MRI if someone could reprogram her shunt after. Unfortunately, no one was available to reprogram her shunt and patient did not have an MRI. Plans are for an outpatient MRI and follow-up with stroke neurology. Of note, patient has been on aspirin and Plavix prior to the stroke, so there is some concern she may be a nonresponder to Plavix. Continues to have some dysarthria and left facial droop. Denies headaches, change in balance, blurred vision, diplopia, weakness, numbness, tingling, recent falls. Does report imbalance. Ambulatory with rolling walker. She does report that her breast cancer is currently in remission. She is taking a daily medication for this. Had CT brain and [employer] shunt series completed today. Review of systems: As in HPI. Past Medical History: Diagnosis Date Aortic stenosis Asthma Atrial fibrillation (CMS/HCC) Cancer (CMS/HCC) 02/2023 right breast, metastatic Cataract CKD (chronic kidney disease) Coronary artery disease Depression Diabetes mellitus (CMS/HCC) Dyslipidemia GERD (gastroesophageal reflux disease) Hypertension NPH (normal pressure hydrocephalus) (CMS/HCC) PVD (peripheral vascular disease) ([facility]/HCC) Sleep apnea Past Surgical History: Procedure Laterality Date BREAST BIOPSY Right 03/01/2023 CATARACT EXTRACTION SECTION, CLASSIC CORONARY ANGIOPLASTY WITH STENT PLACEMENT 2022 HYSTEROSCOPY IR MISC SHUNTOGRAM 06/27/2020 IR MISC SHUNTOGRAM CHILDERS CONVERSION IR MISC SHUNTOGRAM 04/03/2022 IR MISC SHUNTOGRAM CHILDERS CONVERSION MR HEAD ANGIO WO IV CONTRAST 05/07/2020 MR HEAD ANGIO WO IV CONTRAST 05/07/2020 TONSILLECTOMY VENTRICULOPERITONEAL SHUNT 06/25/2020 Yecenia Junior programmable valve. Social History Tobacco Use Smoking status: Never Smokeless tobacco: Never Substance Use Topics Alcohol use: Never Drug use: Never Family History Problem Relation Name Age of Onset Diabetes Mother Hypertension Father Coronary artery disease Father OBJECTIVE: Medications: acetaminophen amLODIPine amoxicillin aspirin atorvastatin cefuroxime cholecalciferol (vitamin D3) clopidogrel Dexcom G6 Kennel Operator [facility] Dexcom G6 Transmitter device ferrous sulfate [employer] Kartik [address] [facility] FreeStyle Kartik 14 Day Sensor kit furosemide gabapentin hydroCHLOROthiazide insulin lispro lancets [facility] letrozole Levemir FlexPen insulin pen melatonin capsule metoprolol tartrate miscellaneous medical supply [facility] mupirocin ONETOUCH ULTRA BLUE TEST STRIP [facility] OneTouch Ultra Test strip oxybutynin pantoprazole pen needle, diabetic needle sertraline SITagliptin phosphate traMADol traZODone Current Outpatient Medications: acetaminophen (Tylenol) 500 mg tablet, Take 500 mg by mouth every 6 (six) hours if needed., Disp: , Rfl: amLODIPine (Norvasc) 5 mg tablet, amlodipine 5 mg tablet TAKE 1 TABLET (5 MG TOTAL) BY MOUTH IN THE MORNING., Disp: , Rfl: amoxicillin (Amoxil) 500 mg tablet, TAKE 4 TABLETS BY MOUTH ONE HOUR PRIOR TO PROCEDURE., Disp: , Rfl: aspirin 81 mg chewable tablet, aspirin 81 mg tablet Take by oral route., Disp: , Rfl: atorvastatin (Lipitor) 20 mg tablet, atorvastatin 20 mg tablet TAKE 1 TABLET BY MOUTH EVERY DAY FOR 30 DAYS, Disp: , Rfl: atorvastatin (Lipitor) 80 mg tablet, Take 80 mg by mouth in the morning., Disp: , Rfl: blood sugar diagnostic (ONETOUCH ULTRA BLUE TEST STRIP [facility]), OneTouch Ultra Blue Test Strip, Disp: , Rfl: blood sugar diagnostic (OneTouch Ultra Test) strip, OneTouch Ultra Test strips 1 STRIP BY OTHER ROUTE 4 (FOUR) TIMES A DAY BEFORE MEALS AND NIGHTLY., Disp: , Rfl: cefuroxime (Ceftin) 250 mg tablet, cefuroxime axetil 250 mg tablet, Disp: , Rfl: cholecalciferol, vitamin D3, 50 mcg (2,000 unit) capsule, cholecalciferol (vitamin D3) 50 mcg (2,000 unit) capsule TAKE 1 CAPSULE BY MOUTH EVERY DAY, Disp: , Rfl: clopidogrel (Plavix) 75 mg tablet, Take 75 mg by mouth in the morning., Disp: , Rfl: Dexcom G6 Kennel Operator misc, See administration instructions., Disp: , Rfl: Dexcom G6 Transmitter device, CHANGE EVRY 90 DAYS., Disp: , Rfl: ferrous sulfate 325 (65 Fe) MG EC tablet, Take 325 mg by mouth., Disp: , Rfl: FreeStyle Kartik reader ([employer]Style Kartik 14 Day [place]) misc, [employer]Style Kartik 14 Day [place], Disp: , Rfl: [employer]Style Kartik sensor system (FreeStyle Kartik 14 Day Sensor) kit, [employer]Style K[employer]ik 14 Day Sensor kit, Disp: , Rfl: furosemide (Lasix) 20 mg tablet, Take 20 mg by mouth in the morning., Disp: , Rfl: gabapentin (Neurontin) 300 mg capsule, TAKE 1 CAPSULE (300 MG TOTAL) BY MOUTH IN T (more content not included)... [facility] 02-09-2024 History of Present illness Narrative Images from the original note were not included. [address] [place] [address] SUBJECTIVE: Patient ID: Cuca Goodwin is a 78 y.o. female. Chief Complaint Patient presents with incontinence Accompanied by daughter today Urine is cloudy, increased incontinence. Concerns for reoccurrence of UTI. Patient was hospitalized at [facility] in September 2023 for UTI. Uses Purewick [...] 10/17/2019 Performed by Sang Bell DO at [facility] HYSTEROSCOPY DILATION CURETTAGE MYOSURE N/A 01/29/2021 Performed by Jv Briones MD at [facility] INJECTION BLOCK EPIDURAL CAUDAL STEROID N/A 08/14/2022 Performed by Arnulfo Gonzalez MD at [facility] INJECTION BLOCK EPIDURAL CAUDAL STEROID N/A 06/06/2021 Performed by Arnulfo Gonzalez MD at [facility] INJECTION BLOCK EPIDURAL CAUDAL STEROID N/A 04/25/2021 Performed by Arnulfo Gonzalez MD at [facility] INJECTION CAUDAL EPIDURAL WITH CATHETER, STEROID N/A 05/03/2020 Performed by Arnulfo Gonzalez MD at [facility] INJECTION CAUDAL EPIDURAL WITH CATHETER, STEROID N/A 11/24/2019 Performed by Arnulfo Gonzalze MD at [facility] INJECTION CAUDAL EPIDURAL WITH CATHETER, STEROID N/A 04/21/2019 Performed by Arnulfo Gonzalez MD at [facility] MEDIAL BRANCH NERVE BLOCK Bilateral L 4/5, 5/1 Bilateral 08/18/2019 Performed by Arnulfo Gonzalez MD at [facility] INJECTION MEDIAL BRANCH NERVE BLOCK Bilateral L 4/5, 5/1 Bilateral 06/23/2019 Performed by Arnulfo Gonzalez MD at [facility] INJECTION STEROID EPI 1 WITH SEDATION Right L 4, 5 NR Right 03/17/2019 Performed by Arnulfo Gonzalez MD at [facility] INJECTION STEROID EPI 1 WITH SEDATION: right L45 nroot Right 08/15/2018 Performed by Arnulfo Gonzalez MD at [facility] LEFT L4, AND 5 NERVE ROOT INJECTION 2 OF 2 Left 07/22/2018 Performed by Arnulfo Gonzalez MD at [facility] LEFT L4, AND L5 NERVE ROOT 1 OF 2 Left 07/04/2018 Performed by Arnulfo Gonzalez MD at [facility] PERCUTANEOUS CORONARY INTERVENTION SHUNT INSERTION TONSILLECTOMY AGE 4 Transcutaneous aortic valve replacement/Transfemoral/Kwan N/A 08/17/2023 Performed by Chava Norris MD at [facility] Valvuloplasty aortic N/A 06/03/2023 Performed by Chava Norris MD at [facility] Past Medical History: Diagnosis Date Anemia Arthritis Asthma very mild, no inhaler use Cataract Dental disease Depression Diabetes mellitus ([facility]) Diabetes mellitus type 2, controlled ([facility]) Encephalitis Foot fracture, left GERD (gastroesophageal reflux disease) Heart murmur HLD (hyperlipidemia) Hypertension Incontinence Injury of back Insulin dependent diabetes mellitus Kidney failure STAGE 4 Lumbar spondylolysis Murmur Obesity CHELSEA (obstructive sleep apnea) no machine Peptic ulceration Peripheral vascular disease ([facility]) Shortness of breath TIA (transient ischemic attack) [...] Werner 02/09/24 1420 documented in this encounter [facility] 12-15-2023 History of Present illness Narrative Images from the original note were not included. [address] [place] [id number] SUBJECTIVE: Patient ID: Cuca Goodwin is a [...] 10/17/2019 Performed by Sang Bell DO at [facility] HYSTEROSCOPY DILATION CURETTAGE MYOSURE N/A 01/29/2021 Performed by Jv Briones MD at [facility] INJECTION BLOCK EPIDURAL CAUDAL STEROID N/A 08/14/2022 Performed by Arnulfo Gonzalez MD at [facility] INJECTION BLOCK EPIDURAL CAUDAL STEROID N/A 06/06/2021 Performed by Arnulfo Gonzalez MD at [facility] INJECTION BLOCK EPIDURAL CAUDAL STEROID N/A 04/25/2021 Performed by Arnulfo Gonzalez MD at [facility] INJECTION CAUDAL EPIDURAL WITH CATHETER, STEROID N/A 05/03/2020 Performed by Arnulfo Gonzalez MD at [facility] INJECTION CAUDAL EPIDURAL WITH CATHETER, STEROID N/A 11/24/2019 Performed by Arnulfo Gonzalez MD at [facility] INJECTION CAUDAL EPIDURAL WITH CATHETER, STEROID N/A 04/21/2019 Performed by Arnulfo Gonzalez MD at [facility] INJECTION MEDIAL BRANCH NERVE BLOCK Bilateral L 4/5, 5/1 Bilateral 08/18/2019 Performed by Arnulfo Gonzalez MD at [facility] INJECTION MEDIAL BRANCH NERVE BLOCK Bilateral L 4/5, 5/1 Bilateral 06/23/2019 Performed by Arnulfo Gonzalez MD at [facility] INJECTION STEROID EPI 1 WITH SEDATION Right L 4, 5 NR Right 03/17/2019 Performed by Arnulfo Gonzalez MD at [facility] INJECTION STEROID EPI 1 WITH SEDATION: right L45 nroot Right 08/15/2018 Performed by Arnulfo Gonzalez MD at [facility] LEFT L4, AND 5 NERVE ROOT INJECTION 2 OF 2 Left 07/22/2018 Performed by Arnulfo Gonzalez MD at [facility] LEFT L4, AND L5 NERVE ROOT 1 OF 2 Left 07/04/2018 Performed by Arnulfo Gonzalez MD at [facility] PERCUTANEOUS CORONARY INTERVENTION SHUNT INSERTION TONSILLECTOMY AGE 4 Transcutaneous aortic valve replacement/Transfemoral/Kwan N/A 08/17/2023 Performed by Chava Norris MD at [facility] Valvuloplasty aortic N/A 06/03/2023 Performed by Chava Norris MD at [facility] Past Medical History: Diagnosis Date Anemia Arthritis Asthma very mild, no inhaler use Cataract Dental disease Depression Diabetes mellitus ([facility]) Diabetes mellitus type 2, controlled ([facility]) Encephalitis Foot fracture, left GERD (gastroesophageal reflux disease) Heart murmur HLD (hyperlipidemia) Hypertension Incontinence Injury of back Insulin dependent diabetes mellitus Kidney failure STAGE 4 Lumbar spondylolysis Murmur Obesity CHELSEA (obstructive sleep apnea) no machine Peptic ulceration Peripheral vascular disease ([facility]) Shortness of breath TIA (transient ischemic attack) [...] needed (cough and congestion). Normal pressure hydrocephalus ([facility]) Moderate episode of recurrent major depressive disorder ([facility]) PVD (peripheral vascular disease) ([facility]) 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 mellitus ([facility]) - gabapentin (NEURONTIN) 300 mg capsule; Take 1 capsule (300 mg total) by mouth in the morning and 1 capsule (300 mg total) before bedtime. Stage 3b chronic kidney disease ([facility]) Major depressive disorder in partial remission, unspecified whether recurrent ([facility]) - sertraline (ZOLOFT) 100 mg tablet; Take [...] stage 3b chronic kidney disease and hypertension ([facility]) - SITagliptin phosphate (JANUVIA) 50 mg tablet; Take 1 tablet (50 mg total) by mouth in the morning. Type 2 DM -Managed by endocrine in reid She believes her A1c is below 7% [...] for sore throat. Tylenol as needed per automobile accessories installer guidelines for fever or pain. Body mass [...] Werner 12/15/23 1559 documented in this encounter [facility] 11-25-2023 History of Present illness Narrative Images from the original note were not included. [facility] 11/25/23 Cuca Goodwin is a 78 y.o. year old female seen today in the oncology clinic. Chief Complaint Patient presents with Follow-up History of Present Illness: Mrs. Goodwin is a 78 y.o. female with history of aortic valve stenosis, she had PCI earlier in the year at [facility] for coronary disease. during the cardiac [...] mammary carcinoma, grade 2, ER strongly positive PA moderately positive and HER2 negative. There was [...] use Cataract Dental disease Depression Diabetes mellitus ([facility]) Diabetes mellitus type 2, controlled ([facility]) Encephalitis Foot fracture, left GERD (gastroesophageal reflux disease) Heart murmur HLD (hyperlipidemia) Hypertension Incontinence Injury of back Insulin dependent diabetes mellitus Kidney failure STAGE 4 Lumbar spondylolysis Murmur Obesity CHELSEA (obstructive sleep apnea) no machine Peptic ulceration Peripheral vascular disease ([facility]) Shortness of breath TIA (transient ischemic attack) Upper respiratory infection UTI (urinary tract infection) Visual impairment Wears dentures Past Surgical History: Procedure Laterality Date BREAST BIOPSY Right 03/01/2023 ULT BIOPSY CATARACT EXTRACTION SECTION SECTION 03/14/1974 EGD N/A 10/17/2019 Performed by Sang Bell DO at [facility] HYSTEROSCOPY DILATION CURETTAGE MYOSURE N/A 01/29/2021 Performed by Jv Briones MD at [facility] INJECTION BLOCK EPIDURAL CAUDAL STEROID N/A 08/14/2022 Performed by Arnulfo Gonzalez MD at [facility] INJECTION BLOCK EPIDURAL CAUDAL STEROID N/A 06/06/2021 Performed by Arnulfo Gonzalez MD at [facility] INJECTION BLOCK EPIDURAL CAUDAL STEROID N/A 04/25/2021 Performed by Arnulfo Gonzalez MD at [facility] INJECTION CAUDAL EPIDURAL WITH CATHETER, STEROID N/A 05/03/2020 Performed by Arnulfo Gonzalez MD at [facility] INJECTION CAUDAL EPIDURAL WITH CATHETER, STEROID N/A 11/24/2019 Performed by Arnulfo Gonzalez MD at [facility] INJECTION CAUDAL EPIDURAL WITH CATHETER, STEROID N/A 04/21/2019 Performed by Arnulfo Gonzalez MD at [facility] INJECTION MEDIAL BRANCH NERVE BLOCK Bilateral L 4/5, 5/1 Bilateral 08/18/2019 Performed by Arnulfo Gonzalez MD at [facility] MEDIAL BRANCH NERVE BLOCK Bilateral L 4/5, 5/1 Bilateral 06/23/2019 Performed by Arnulfo Gonzalez MD at [facility] INJECTION STEROID EPI 1 WITH SEDATION Right L 4, 5 NR Right 03/17/2019 Performed by Arnulfo Gonzalez MD at [facility] INJECTION STEROID EPI 1 WITH SEDATION: right L45 nroot Right 08/15/2018 Performed by Arnulfo Gonzalez MD at [facility] LEFT L4, AND 5 NERVE ROOT INJECTION 2 OF 2 Left 07/22/2018 Performed by Arnulfo Gonzalez MD at [facility] LEFT L4, AND L5 NERVE ROOT 1 OF 2 Left 07/04/2018 Performed by Arnulfo Gonzalez MD at [facility] PERCUTANEOUS CORONARY INTERVENTION SHUNT INSERTION TONSILLECTOMY AGE 4 Transcutaneous aortic valve replacement/Transfemoral/Kwan N/A 08/17/2023 Performed by Chava Norris MD at [facility] Valvuloplasty aortic N/A 06/03/2023 Performed by Chava Norris MD at [facility] Family History Problem Relation [...] min Stress: No Stress Concern Present (10/05/2022) [employer] [place] [employer] - Occupational Stress Questionnaire Feeling of Stress : Not at all Social Connections: Moderately Isolated (10/05/2022) Social Connection and Isolation Panel [NHANES] Frequency of Communication with Friends and Family: Never Frequency of Social Gatherings with Friends and Family: Never Attends Quaker Services: More than 4 times per year [...] nephropathy, without long-term current use of insulin ([facility]) Signed by: KAIDEN Santana Monitor blood sugars four times daily and as needed clopidogreL 75 mg tablet Refills: 0 Dose: 75 mg Commonly known as: PLAVIX COMFORT EZ PEN NEEDLES 32 gauge x 5/16 needle Quantity: 200 each Refills: 6 For diagnoses: Type 2 diabetes mellitus with stage 4 chronic kidney disease, with long-term current use of insulin ([facility]) Dose: 4 applicator Signed by: KAIDEN Santana 4 applicators, miscellaneous, See admin instructions, 4 times daily injection Generic drug: pen needle, diabetic DEXCOM G6 SEWING MACHINE REPAIRER HELPER misc Refills: 0 Dose: 1 Device Generic drug: blood-glucose meter,continuous DEXCOM G6 SENSOR device Refills: 0 Generic drug: blood-glucose sensor gabapentin 300 mg capsule Quantity: 180 capsule Refills: 1 Doctor's comments: 90 Day Supply. 1 refill For diagnoses: 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 mellitus ([facility]) Dose: 300 mg Signed by: KAIDEN Santana 300 mg, oral, 2 times daily Commonly known as: NEURONTIN hydroCHLOROthiazide 25 mg tablet Refills: 0 Dose: 25 mg Commonly known as: HYDRODIURIL insulin lispro 100 unit/mL insulin pen Refills: 0 For diagnoses: Mixed diabetic hyperlipidemia associated with type 2 diabetes mellitus ([facility]) Dose: 2 Units Signed by: RONNA Solis [...] nephropathy, without long-term current use of insulin ([facility]) Signed by: KAIDEN Santana Monitor blood sugars four times daily and as needed Commonly known as: onetouch ultrasoft * ONETOUCH DELICA PLUS LANCET 33 gauge misc Refills: 0 Generic drug: lancets letrozole 2.5 mg chemo tablet Quantity: 90 tablet Refills: 3 For diagnoses: 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 female breast, unspecified estrogen receptor status ([facility]) Dose: 2.5 mg Signed by: Dr. Rambo Muñoz MD 2.5 mg, oral, Daily Commonly known as: FEMARA LEVEMIR FLEXPEN 100 unit/mL (3 mL) insulin pen Quantity: 30 mL Refills: 3 For diagnoses: Controlled type 2 diabetes mellitus with diabetic nephropathy, without long-term current use of insulin ([facility]) Signed by: KAIDEN Santana INJECT 30 UNITS UNDER THE SKIN NIGHTLY Generic drug: insulin detemir U-100 metoprolol succinate XL 25 mg 24 hr tablet Quantity: 90 tablet Refills: 2 For diagnoses: Essential hypertension, Athscl heart disease of cous[place]ta coronary artery w/o ang pctrs Dose: 25 [...] disorder in partial remission, unspecified whether recurrent ([facility]) Dose: 100 mg Signed by: KAIDEN Santana 100 mg, oral, Daily Commonly known as: ZOLOFT SITagliptin phosphate 50 mg tablet Quantity: 90 tablet Refills: 1 For diagnoses: Diabetes mellitus type 2, insulin dependent ([facility]), 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 ([facility]) Dose: 50 mg Signed by: KAIDEN Santana 50 mg, oral, Daily Commonly known as: [...] to ensure the accuracy of this automated head machinist, some errors in head machinist may have occurred. CC: Patient Care Team: KAIDEN Werner as PCP - General (Family Medicine) Simeon Quiles MD (Nephrology) KAIDEN Hsu as Nurse Practitioner (Pulmonary Medicine) Madison Ye MD as Referring Physician (Endocrinology, Diabetes & Metabolism) Rambo Muñoz MD as Consulting Physician (Hematology) PCP:Pam Ley Referring MD: Pam Ley, AP* documented in this encounter [facility] 11-25-2023 Instructions Rambo Muñoz MD - 11/25/2023 2:30 PM EST Pet SCAN 02/2024. F/u in late 02/2024 to review results. Continue femara alone. Labs before appt: CBC, CMP, CA 15-3, CA 27.29. [facility]-23-2023 Note SUBJECTIVE: Chief complaint: DEAN OF GRADUATE STUDIES shunt adjustment status post 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 History of present illness: Return visit for NPH status post DEAN OF GRADUATE STUDIES shunt. Had MRI thoracic and lumbar spine done at [facility] last week due to concern for [...] Medications: acetaminophen amLODIPine aspirin atorvastatin blood-glucose meter [facility] cefuroxime cholecalciferol (vitamin D3) clopidogrel Dexcom G6 Sensor device ferrous sulfate FreeStyle Kartik [address] [facility] FreeStyle Kartik 14 Day Sensor kit furosemide gabapentin hydroCHLOROthiazide insulin lispro lancets [facility] letrozole Levemir FlexPen insulin pen melatonin capsule metoprolol succinate XL metoprolol tartrate miscellaneous medical supply [facility] mupirocin ONETOUCH ULTRA BLUE TEST STRIP [facility] OneTouch Ultra Test strip oxybutynin oxybutynin XL [...] sugar diagnostic (ONETOUCH ULTRA BLUE TEST STRIP [facility]), OneTouch Ultra Blue Test Strip, Disp: , Rfl: blood sugar diagnostic (OneTouch Ultra Test) strip, OneTouch Ultra Test strips 1 STRIP BY OTHER ROUTE 4 (FOUR) TIMES A DAY BEFORE MEALS AND NIGHTLY., Disp: , Rfl: blood-glucose meter [facility], OneTouch Ultra2 Meter, Disp: , Rfl: blood-glucose meter [facility], Monitor blood sugars four times daily and [...] FreeStyle Kartik reader (FreeStyle Kartik 14 Day [place]) misc, FreeStyle Kartik 14 Day [place], Disp: , Rfl: FreeStyle Kartik sensor system [...] (U-100) Insulin 10 (more content not included)... [facility] 12-11-2022 History of Present illness Narrative Patient discharged home. Discharge instructions were explained and given to the patient, patient verbalized understanding. All belongings were sent with the patient. No signs of acute distress noted, no concerns voiced. Physical Therapy Facility/Department: [address] [facility] Physical Therapy Name: Cuca Goodwin : [...] 25 Sasha Maldonado PT Physical Therapy Facility/Department: [address] [place] Daily Treatment Note NAME: Cuca [...] pt in bed in supine Pain: c/o 4/10 LBP Objective Bed Mobility Training Bed Mobility [...] the original note were not included. [employer] Progress Note Date: 12/09/2022 Patient name: Cuca [...] 4.4 4.1 CL 110* 106 106 CO2 BUN 19 CREATININE 1.43* 1.33* 1.33* GLUCOSE [...] a max pressure of: 10 graciela. Resolute [place] 2.5 x 12 CÉSAR. 1 inflation(s) to [...] 182 cm. Number of passes: 1. [place]olute [place] 2.5 x 12 CÉSAR. 1 inflation(s) to [...] stable. Plans for TAVR work-up as OP [place] [employer] [facility]. [phone] Physical Therapy Facility/Department: [address] Physical Therapy Initial Assessment Name: Cuca Goodwin [...] pt repositioned in bed for comfort upon loan underwriter's exit. Subjective Subjective: RN and pt [...] rollator at baseline) Transfer Assistance: Independent Active Supportability Engineer: No Mode of Transportation: Friends, Cab Occupation: [...] the original note were not included. [employer] Progress Note Date: 12/08/2022 Patient name: Cuca Goodwin Date of admission: 12/07/2022 5:55 PM Date of : 1945 PCP: Sami Mauric Reason for Admission: S/P angioplasty with stent [...] a max pressure of: 12 graciela. Resolute [place] 3.0 x 12 CÉSAR. 1 inflation(s) to [...] stable Plans for TAVR work-up as OP [employer] [phone] Water Aerobics Instructor discussed the next step in the TAVR process, an appointment with the cardiothoracic surgeon, with patient and daughter at bedside in [facility]. Office number given to daughter, she will call to schedule in the next couple days. Water Aerobics Instructor's contact number also given. Patient declined AM [...] stretcher. Right groin assessed by Joelle and loan underwriter. Groin remains soft. Dr Jni at bedside and aware of blood pressures. [...] Manual pressure held Manual pressure held per loan underwriter for [address] Martinez at bedside to assess. Order for POC H & H received. Hemaglobin 6.9. Stat lab draw ordered. Dr Martinze at bedside to assess. Order for LLE vascualr scan received. 1 Patient admitted, consent signed and questions answered. Patient ready for procedure. Call light to reach with side rails up 2 of 2. Bilateral groin areas clipped with loan underwriter and Maggi estrada present. Daughter Ismael at bedside with patient. History and physical needs updated. Received post cardiac cath procedure to [facility] room 10. Assessment obtained. Restrictions reviewed with patient. Post procedure pathway initiated. Right site noted to have small hematoma, manual pressure held by Juana. Band aid dry and intact. Family at side. Patient without complaints. Head of bed flat with right leg straight. documented in this encounter [employer] [facility] Step-In Work Phone: 12-07-2022 Note [facility] Vascular Lower Extremities Arterial Duplex Procedure Patient Name CHRISTA Date of Study 12/07/2022 CUCA Date of 1945 Gender Female Age 77 year(s) Race Room Number 0501 Height: 65 inch, 165.1 cm Corporate ID # [id number] Weight: 208 pounds, 94.3 kg Patient BSA: 2.01 m^2 BMI: 34.61 kg/m^2 MR # [id number] Director Payment Whit Gan RVT Interpreting Physician Darnell Monique [...] ! ! +---------++-----+-----+------+--- -+------++---+-----+------+----+-- -------+ [facility] 11-24-2022 History of Present illness Narrative Patient admitted, consent signed and questions answered. Patient ready for procedure. Call light to reach with side rails up 2 of 2. Bilateral groin areas clipped with loan underwriter and Jose PIERRE present. Daughter Ileana at bedside with patient. History and physical needs updated. documented in this encounter [employer] Phone: 03-20-2021 Note PROCEDURE: XR FOOT L T MIN 3 VIEWS COMPARISON: None. HISTORY: Pain FINDINGS: BONES:No acute fracture or dislocation. Persistent flexion of the toes limits their evaluation. Mild to moderate degenerative changes with joint space narrowing and marginal osteophyte formation, most significant at the first metatarsophalangeal joint where [id number] endplate is observed SOFT TISSUES:Negative. No visible soft tissue swelling. EFFUSION:None visible. OTHER: Negative. IMPRESSION: Moderate degenerative changes, no acute fracture Electronically authenticated by: GIOVANNY NICOLE Date: 2021-03-20 08:29 [facility] Evaluation note Diagnosis Severe aortic valve stenosis- Primary Aortic valve disorders documented in this encounter [employer] Phone: evaluation note* Diagnosis RAIN (acute kidney injury) (HCC)- Primary Acute kidney failure, unspecified documented in this encounter [employer] Phone: evaluation note* Diagnosis Severe aortic valve stenosis- Primary [...] kidney disease (HCC) Coronary artery disease involving [place] coronary artery of [place] heart without angina pectoris documented in this encounter [employer] Phone: evalblyklo note* Diagnosis Aortic valve stenosis, etiology of cardiac valve disease unspecified documented in this encounter [employer] Phone: evalzdpirm note* Diagnosis Aortic valve stenosis, etiology of cardiac valve disease unspecified documented in this encounter [employer] Phone: evalyeieuw note* Diagnosis 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 female breast, unspecified estrogen receptor status ([facility])- Primary [facility] Diagnosis Insomnia, unspecified type [facility] Diagnosis Upper respiratory tract infection, unspecified type- Primary Normal pressure hydrocephalus ([facility]) 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 ([facility]) PVD (peripheral vascular disease) ([facility]) Unspecified peripheral vascular disease 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 mellitus ([facility]) Stage 3b chronic kidney disease ([facility]) Major depressive disorder in partial remission, unspecified whether recurrent ([facility]) Essential hypertension Unspecified essential hypertension GERD without esophagitis Esophageal reflux 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 ([facility]) [facility] Diagnosis 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 female breast, unspecified estrogen receptor status ([facility]) [facility] Diagnosis Acute cystitis without hematuria- Primary Urge incontinence of urine Urge incontinence [facility]* Attachments The following attachments cannot be sent through Care Everywhere. * PCI (Percutaneous Coronary Intervention): Post-op ([place] Citizen) [facility] [employer] Work Phone: InstructionsNot on filedocumented in this encounter [facility]* Attachments The following attachments cannot be sent through Care Everywhere. * Bacterial Upper Respiratory Infection, Adult ([place] Citizen) [facility] SystemInstructionsNot on file documented in this encounterH[facility] HospitalInstructions* Attachments The following attachments cannot be sent through Care Everywhere. 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 Expl anation ACP-Advance Directive ACP-Power of Reconditioning Associate Latest Code Status on File Code Status [...] Documents on File Type Date Recorded Patient Heavy Equipment Operator/Paver Expl anation ACP-Advance Directive 12/14/2022 2:27 PM Latest Code Status on File Code Status Date Activated Date Inactivated Comments Full Code 12/07/2022 11:24 AM 12/11/2022 1:10 PM Full Code 11/24/2022 11:19 AM 11/25/2022 2:46 AM Full Code 09/28/2022 4:15 AM 09/30/2022 6:37 PM Full Code 10/15/2014 1:49 PM 10/15/2014 8:39 PM Documents on File Type Date Recorded Patient Heavy Equipment Operator/Paver Expl anation ACP-Advance Directive 12/14/2022 2:27 PM Latest Code Status on File Code Status Date Activated Date Inactivated Comments Full Code 12/07/2022 11:24 AM 12/11/2022 1:10 PM Documents on File Type Date Recorded Patient Heavy Equipment Operator/Paver Expl anation Durable Power of Reconditioning Associate 10/21/2022 2:24 PM DNR Physician Order 10/21/2022 2:24 PM Living Will 01/30/2021 12:07 PM Durable Power of Reconditioning Associate 01/30/2021 12:07 PM Living Will 01/29/2021 6:19 AM Advance Directive 01/29/2021 6:18 AM DNR Physician Order 11/03/2019 1:27 PM Latest Code Status on File Code Status Date Activated Date Inactivated Comments Full Code 03/28/2023 5:07 PM 04/01/2023 3:32 PM Code Status History Code Status Date Activated Date Inactivated Comments DNR Comfort Care Arrest (DNR-CCA) [place] 10/06/2022 8:43 AM 10/06/2022 8:41 PM Full [...] C STC MORP CARD ONLY Namrata Blair, PRODUCT SCIENTIST - BAG HANGER [address] [place] [address] Referral ID Status Reason Start Date Expiration Date Visits Re quested Visits Authorized [id number] Closed 01/11/2023 04/10/2023 1 1 Specialty Diagnoses / Procedures Referred By Contac t Referred To Contact Radiology Diagnoses Aortic valve stenosis, etiology of cardiac valve disease unspecified Procedures CTA CHEST ABDOMEN PELVIS W CONTRAST 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 Blair 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 - [employer]AG HANGER [address] [place] [address] Referral ID Status Reason Start Date Expiration Date Visits Re quested Visits Authorized [id number] Closed 01/11/2023 04/10/2023 1 1 Additional Source Comments INFORMATION SOURCE (unrecogn ized section and content) DATE CREATED AUTHOR 03/27/2021 [facility] DATE CREATED AUTHOR AUTHOR'S ORGANIZ ATION 04/09/2021 [facility] DATE CREATED AUTHOR AUTHOR'S ORGANIZ ATION 04/06/2022 [facility] DATE CREATED AUTHOR AUTHOR'S ORGANIZ ATION 01/22/2023 [facility] DATE CREATED AUTHOR AUTHOR'S ORGANIZ ATION 02/12/2024 [facility] DATE CREATED AUTHOR AUTHOR'S ORGANIZ ATION 03/05/2024 [facility] DATE CREATED AUTHOR AUTHOR'S ORGANIZ ATION 03/11/2024 [facility] DATE CREATED AUTHOR AUTHOR'S ORGANIZ ATION 03/20/2024 [facility] Reason for Visit (unrecogniz ed section and content) Specialty Diagnoses / Procedures Referred By Polo tobias Referred To Contact [facility] [id number] [place] [address] Referral ID Status Reason Start Date Expiration Date Visits Re quested Visits Authorized [id number] 1 1 Referral ID Status Reason Start Date Expiration Date Visits Re quested Visits Authorized [id number] 1 1 Specialty Diagnoses / Procedures Referred By Polo tobias Referred To Contact Radiology Diagnoses Aortic valve stenosis, etiology of cardiac valve disease unspecified Procedures CT CARDIAC W C STC MORP CARD ONLY Namrata Blair, PRODUCT SCIENTIST - BAG HANGER [address] [place] [address] Referral ID Status Reason Start Date Expiration Date Visits Re quested Visits Authorized [id number] Closed 01/11/2023 04/10/2023 1 1 Specialty Diagnoses / Procedures Referred By Polo tobias Referred To Contact Radiology Diagnoses Aortic valve stenosis, etiology of cardiac valve disease unspecified Procedures CTA CHEST ABDOMEN PELVIS W CONTRAST Namrata Blair, PRODUCT SCIENTIST - [employer] H[employer]ER [address] [place] [address] Referral ID Status Reason Start Date Expiration Date Visits Re quested Visits Authorized [id number] Closed 01/11/2023 04/10/2023 1 1 Reason Comments Follow-up Reason Onset Date Comments Med Refill 12/06/2023 Reason Comments Cough Nasal Congestion Reason Comments Med Refill Reason Comments incontinence Care Teams (unrecognized sec tion and content) Hairpiece Stylist Relationship Specialty Start Date End Date Caden Sanchez PCP - General Family Medicine 09/29/22 Hairpiece Stylist Relationship Specialty Start Date End Date Caden Sanchez PCP - General Family Medicine 09/29/22 Hairpiece Stylist Relationship Specialty Start Date End Date Caden Sanchez PCP - General Family Medicine 09/29/22 Hairpiece Stylist Relationship Specialty Start Date End Date Caden Sanchez PCP - General Family Medicine 09/29/22 Hairpiece Stylist Relationship Specialty Start Date End Date Caden Sanchez PCP - General Family Medicine 09/29/22 Hairpiece Stylist Relationship Specialty Start Date End Date Pam Ley PRODUCT SCIENTIST [facility] [address] [place] [address] [facility] General 01/15/23 Hairpiece Stylist Relationship Specialty Start Date End Date Pam Ley [facility] [address] [place] [address] [facility] General 01/15/23 Hairpiece Stylist Relationship Specialty Start Date End Date Pam Ley [facility] [address] [place] [address] PCP - [facility] 09/28/23 Hairpiece Stylist Relationship Specialty Start Date End Date [facility] [address] [place] [address] PCP - [facility] 09/28/23 Hairpiece Stylist Relationship Specialty Start Date End Date [facility] [address] [place] [address] PCP - [facility] 09/28/23 Hairpiece Stylist Relationship Specialty Start Date End Date Pam Ley [facility] [address] [place] [address] PCP - General Family Medicine 09/28/23 Ordered [...] Medina RN) 801 (Given - Provider: Jacqueline Medina RN) 0846 [...] dose on Wed12/07/22 at 1645, Until Discontinued 925 (Given - Provider: Jacqueline Medina RN) 0802 [...] Infusing) 0804 (Not Given - Provider: Jacqueline Medina, GABBY - Reason: IV Fluid Infusing)195 (Given - Provider: Libia Lyons RN) 0847 [...] from all sources in 24 hours., Recovery(Cath) 0933 (Given - Provider: Jacqueline Medina RN) bisacodyl [...] g (4 tablet), Oral, PRN, Starting on Kim 12/10/22 at 0823, Until Discontinued, Low blood sugar, [...] BE BASED ON THE PRIMARY CLINICAL RECORDS. [employer] provides no warranty or guarantee of the accuracy or completeness of information in this document.
[2024-04-05 21:57] LABS: Glucometer 128 mg/dL (74-106)
--- NOTE | 2024-04-05 21:58 | ECG_ITS ---
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
--- NOTE | 2024-04-05 22:00 | ED_ITS ---
HPI HPI - General Adult General Chief complaint: Recheck/Abnormal Lab/Rx Stated complaint: Hypoglycemia Time Seen by Provider: 04/05/24 21:44 Source: other Source information: EMS Mode of arrival: ambulance History of Present Illness HPI narrative: This 78-year-old female with a history of diabetes is brought to the emergency department by EMS. According to EMS they were called by the patient's daughter because her sugar had dropped from the 200s into the 70s. She was given something to eat but her sugar remained low and she was given IV D10 by EMS. The patient did have an episode of vomiting. She states that she is no longer nauseated. She has not had any diarrhea. She states she has been urinating quite frequently but denies any dysuria or hematuria. She does not think she aspirated when she vomited but upon arrival she was noted to have a dry cough and was hypoxic on that she was on oxygen. She denies a history of COPD or tobacco use. She denies any chest pain or steph shortness of breath. She no longer feels nauseated. She states she has not been feeling well for 1 day. She denies any chest pain or abdominal pain. She has no back pain. She has no lower extremity pain or swelling. Upon arrival she was noted to be febrile. Related Data Home Medications ?Medication ?Instructions ?Recorded ?Confirmed clopidogrel 75 mg tablet 75 mg PO QDAY 09/30/23 02/27/24 gabapentin 300 mg capsule 300 mg PO Q12H 09/30/23 02/27/24 insulin detemir U-100 100 unit/mL 30 unit subcut QPM 09/30/23 02/27/24 (3 mL) subcutaneous pen (Levemir FlexPen) letrozole 2.5 mg tablet 2.5 mg PO Q24H 09/30/23 02/27/24 ondansetron 4 mg disintegrating 4 mg PO Q8H PRN nausea and vomiting 09/30/23 02/27/24 tablet pantoprazole 40 mg tablet,delayed 40 mg PO QDAY 09/30/23 02/27/24 release sertraline 100 mg tablet 100 mg PO QAM 09/30/23 02/27/24 sitagliptin phosphate 50 mg tablet 50 mg PO QAM 09/30/23 02/27/24 (Januvia) trazodone 100 mg tablet 100 mg PO QPM 09/30/23 02/27/24 insulin aspart U-100 100 unit/mL 1 sliding scale dose subcut .WM 02/27/24 02/27/24 (3 mL) subcutaneous pen metoprolol succinate 25 mg 25 mg PO DAILY 02/27/24 02/27/24 tablet,extended release 24 hr Previous Rx's ?Medication ?Instructions ?Recorded aspirin 81 mg capsule 81 mg PO DAILY #30 caps 02/28/24 atorvastatin 20 mg tablet 20 mg PO QPM #30 tabs 02/28/24 Allergies Allergy/AdvReac Type Severity Reaction Status Date / Time No Known Drug Allergies Allergy Verified 09/30/23 16:22 Opioid HPI Opioid Management Most Recent Opioid Data: Last Pain Scale 0 10/04/23 11:15 Last Pain Intensity 2 10/01/23 09:25 Last ORT Total Score 0 02/27/24 16:01 Last ORT Risk Category Low Risk 02/27/24 16:01 Review of Systems ROS Status of ROS 10 or more systems reviewed and unremark able except as noted in history and below [facility] Medical History (Updated 04/06/24 @ 00:35 by Tanya Mayer MD) Arthritis ?M19.90 - Unspecified osteoarthritis, unspecified site (ICD-10) Anemia ?D64.9 - Anemia, unspecified (ICD-10) Asthma ?J45.909 - Unspecified asthma, uncomplicated (ICD-10) Encephalitis ?G04.90 - Encephalitis and encephalomyelitis, unspecified (ICD-10) Metastasis to bone ?C79.51 - Secondary malignant neoplasm of bone (ICD-10) Peptic ulcer disease ?K27.9 - Peptic ulcer, site unspecified, unspecified as acute or chronic, without hemorrhage or perforation (ICD-10) TIA (transient ischemic attack) ?G45.9 - Transient cerebral ischemic attack, unspecified (ICD-10) CHELSEA (obstructive sleep apnea) ?G47.33 - Obstructive sleep apnea (adult) (pediatric) (ICD-10) PVD (peripheral vascular disease) ?I73.9 - Peripheral vascular disease, unspecified (ICD-10) Lumbar spondylosis ?M47.816 - Spondylosis without myelopathy or radiculopathy, lumbar region (ICD-10) Incontinence ?R32 - Unspecified urinary incontinence (ICD-10) CKD (chronic kidney disease) stage 3, GFR 30-59 ml/min ?N18.30 - Chronic kidney disease, stage 3 unspecified (ICD-10) Breast CA ?C50.919 - Malignant neoplasm of unspecified site of unspecified female breast (ICD-10) CAD (coronary artery disease) ?I25.10 - Atherosclerotic heart disease of [place] coronary artery without angina pectoris (ICD-10) Depression ?F32.A - Depression, unspecified (ICD-10) GERD (gastroesophageal reflux disease) ?K21.9 - Gastro-esophageal reflux disease without esophagitis (ICD-10) Hypertension ?I10 - Essential (primary) hypertension (ICD-10) Diabetes ?E11.9 - Type 2 diabetes mellitus without complications (ICD-10) Surgical History (Updated 02/28/24 @ 10:36 by Joelle Goncalves NP) S/P balloon mitral valvuloplasty ?Z98.890 - Other specified postprocedural states (ICD-10) S/P mitral valve replacement with bioprosthetic valve ?Z95.3 - Presence of xenogenic heart valve (ICD-10) Social History Within the past year, how often did you have a drink containing alcohol: never Score interpretation: A score less than 3 is consistent with normal alcohol consumption. 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 Known occupational exposures/hazards: No Highest level of school completed/degree received: high school graduate Do you want help with school or training: No Are you now , , , , never or living with a partner: never In a typical week, how many times do you talk on the telephone with family, friends, or neighbors: 3 or more times per week How often do you get together with friends or relatives: never How often do you attend holiness or rastafarian services: 4 or more times per year Do you belong to any clubs or organizations such as holiness groups unions, fraternal or athletic groups, or school groups: no Total score: 2 Score interpretation: A score of greater than or equal to 2 indicates the lowest level of social isolation. Little interest or pleasure in doing things: not at all Feeling down, depressed, or hopeless: not at all Feel stressed/tense/nervous/anxious/difficulty sleeping: not at all Due to disability, difficulty making decisions: No Do you think of yourself as: straight/heterosexual Gender Identity: female Exam Narrative Exam Narrative: Vital signs and Nursing Notes reviewed: Patient has a low-grade fever orally at 99.5. Blood pressure is elevated at 153/57, she is mildly tachypneic with respiratory rate of 28, pulse ox is normal on 3 L nasal cannula but she desats into the 80s without supplemental oxygen General: Nontoxic but mildly ill-appearing elderly female, she is awake, alert, oriented, no acute distress, lying comfortably on the stretcher HEENT: Normocephalic atraumatic, mucous membranes are moist and pink, eyes are clear, normal conjunctiva, vision is grossly intact, Neck: Supple, no meningeal signs, no anterior or posterior cervical lymphadenopathy Chest: Lung sounds are coarse with no wheezing rhonchi or rales, she is mildly tachypneic, there is no accessory muscle use CVS: Regular rate and rhythm S1-S2, no murmurs rubs or gallops, pulses are brisk and equal bilaterally ABD: obese, soft, nondistended, nontender, no rebound guarding or rigidity, bowel sounds are normal, no pulsatile masses appreciated Extremities: Moving all extremities, no lower extremity tenderness or swelling noted, negative Homans' sign, pulses are brisk and equal bilaterally, feet are warm and sensate. There is no sign of diabetic foot infection Skin: Normal in appearance without rash,pallor, petechiae or purpura Neuro: No focal deficits Constitutional Vital Signs, click to edit/add: Last Vital Signs Temp 99.1 F 04/05/24 23:16 Pulse 82 04/05/24 23:37 Resp 21 H 04/05/24 23:37 BP 121/57 04/05/24 23:37 Pulse Ox 95 04/05/24 23:37 O2 Del Method Nasal Cannula 04/05/24 23:16 O2 Flow Rate 2 04/05/24 23:16 Course Vital Signs Vital signs: Vital Signs Blood Pressure 153/57 H 04/05/24 21:43 Temperature 99.1 F 04/05/24 23:16 Pulse Rate 82 04/05/24 23:37 Respiratory Rate 21 H 04/05/24 23:37 Blood Pressure 121/57 04/05/24 23:37 Pulse Oximetry 95 04/05/24 23:37 Oxygen Delivery Method Nasal Cannula 04/05/24 23:16 Oxygen Delivery Flow Rate 2 04/05/24 23:16 Medical Decision Making MDM Narrative Medical decision making narrative: This 78-year-old female was brought to the emergency department from home for evaluation of a fever and low blood sugar. She is also recently had a dry cough. According to EMS the patient's blood sugar dropped precipitously from the 200s into the 70s. She was given D10 prior to arrival by EMS. She had 1 episode of nausea with vomiting and upon arrival denied that she was nauseated. She denies any chest pain or shortness of breath. She was noted to have a fever by EMS which was confirmed after coming to the emergency department. She has a dry cough but her lungs are clear. EKG done upon arrival was a sinus rhythm with a left bundle branch block and no acute changes. An IV was placed and she was medicated with the additional D10 and IV fluids. She was given pudding and Jell-O to eat. Accu-Chek upon arrival was greater than 100. Septic workup was ordered including CBC with differential, comprehensive metabolic profile, troponin, BNP, lactic acid, 2 sets of blood cultures, chest x-ray and urinalysis. She does have mildly elevated white count compared to her baseline at 12.6. Respiratory panel is negative. Hemoglobin is stable. BUN and creatinine are elevated today with a BUN of 25 which is close to her baseline however the creatinine of 1.58 is higher than her baseline. Chest x-ray was reviewed by radiology and shows some nonspecific infiltrates/pneumonitis but no focal pneumonia. Troponin is normal. Lactic acid is normal. Urine is positive for nitrites and white blood cells. Culture is pending at this time. She was medicated emergency department with Rocephin and Zithromax to cover both UTI and community-acquired pneumonia. The case was discussed with the hospitalist service and she is excepted for admission to [facility] at this time. Medical Records Medical records reviewed: Yes I reviewed the patient's medical records Lab Data Lab results reviewed: Yes I reviewed the patient's lab results Labs: Lab Results 04/05/24 04/05/24 04/05/24 Range/Units 21:45 21:50 21:55 WBC 12.6 H (4.0-11.0) 10^3/uL RBC 3.36 L (4.20-5.40) 10^6/uL Hgb 9.5 L (12.0-16.0) g/dL Hct 30.8 L (36.0-48.0) % MCV 91.7 (81.0-99.0) fL MCH 28.3 (26.7-34.0) pg MCHC 30.8 (29.9-35.2) g/dL RDW 14.7 (11.0-15.0) % Plt Count 219 (150-450) 10^3/uL MPV 10.1 (9.5-13.5) fL Neut % (Auto) 86.7 H (43.0-75.0) % Lymph % (Auto) 5.7 L (20.5-60.0) % [place] % (Auto) 6.3 (1.7-12.0) % Eos % (Auto) 0.6 L (0.9-7.0) % Baso % (Auto) 0.2 (0.2-2.0) % Neut # (Auto) 10.9 H (1.4-6.5) 10^3/uL Lymph # (Auto) 0.7 L (1.2-3.8) 10^3/uL [place] # (Auto) 0.8 (0.3-0.8) 10^3/uL Eos # (Auto) 0.1 (0.0-0.7) 10^3/uL Baso # (Auto) 0.0 (0.0-0.1) 10^3/uL Abs Immat Gran (auto) 0.06 H (0.00-0.03) 10^3/uL Imm/Tot Granulo (auto) 0.5 (0.0-0.5) % Sodium 138 (136-145) mmol/L Potassium 4.5 (3.5-5.1) mmol/L Chloride 102 (98-107) mmol/L Carbon Dioxide 29.5 (21.0-32.0) mmol/L Anion Gap 11.0 BUN 25.0 H (7.0-18.0) mg/dL Creatinine 1.58 H (0.55-1.02) mg/dL Est GFR ( Amer) 38 L (>=60) Est GFR (Non-Af Amer) 32 L (>=60) BUN/Creatinine Ratio 15.8 Glucose 118 H (74-106) mg/dL Lactate 0.9 (0.4-2.0) mmol/L Calcium 9.0 (8.5-10.1) mg/dL Total Bilirubin 0.3 (0.2-1.0) mg/dL AST 18 (15-37) U/L ALT 16 (14-59) U/L Alkaline Phosphatase 87 (46-116) U/L Troponin I High Sens 8.9 (4.0-51.3) pg/mL NT-Pro-B Natriuret Pep 1336.0 (<=1800.0) pg/mL Total Protein 7.8 (6.4-8.2) g/dL Albumin 3.6 (3.4-5.0) g/dL Globulin 4.2 g/dL Albumin/Globulin Ratio 0.9 Procalcitonin 0.06 (0.00-0.50) ng/mL Urine Color (YELLOW) Urine Clarity (CLEAR) Urine pH (5.0-9.0) Ur Specific [place] (1.005-1.025) Urine Protein (NEG/TRACE) mg/dL Urine Glucose (UA) (NEGATIVE) mg/dL Urine Ketones (NEGATIVE) mg/dL Urine Occult Blood (NEGATIVE) Urine Nitrite (NEGATIVE) Urine Bilirubin (NEGATIVE) Urine Urobilinogen (0.2-1.0) EU/dL Ur Leukocyte Esterase (NEGATIVE) Urine RBC (0-2) #/HPF Urine WBC (NONE SEEN) #/HPF Ur Squamous Epith Cells (NONE/RARE) #/LPF Urine Crystals (None Seen) #/HPF Urine Bacteria (NONE SEEN) #/HPF Urine Casts (NONE SEEN) #/LPF Urine Mucus (NONE SEEN) Ur Culture Indicated? Adenovirus (PCR) Not detected (NOT DETECTE) B. pertussis DNA (PCR) Not detected (NOT DETECTE) B.parapertussis DNA PCR Not detected (NOT DETECTE) C. pneumoniae DNA (PCR) Not detected (NOT DETECTE) Coronavirus Type OC43 Not detected (NOT DETECTE) Coronavirus Type HKU1 Not detected (NOT DETECTE) Coronavirus Type 229E Not detected (NOT DETECTE) Coronavirus Type NL63 Not detected (NOT DETECTE) Human Metapneumovir PCR Not detected (NOT DETECTE) Influenza Type A (PCR) Not detected (NOT DETECTE) Influenza Type B (PCR) Not detected (NOT DETECTE) M. pneumoniae (PCR) Not detected (NOT DETECTE) Parainfluenza PCR Not detected (NOT DETECTE) Parainfluenza 2 (PCR) Not detected (NOT DETECTE) Parainfluenza 3 (PCR) Not detected (NOT DETECTE) Parainfluenza 4 (PCR) Not detected (NOT DETECTE) RSV (RT-PCR) Not detected (NOT DETECTE) Entero/Rhino (PCR) Not detected (NOT DETECTE) SARS-CoV-2 (PCR) Not detected (NOT DETECTE) POC Glucose 128 H (74-106) mg/dL 04/05/24 Range/Units 23:45 WBC (4.0-11.0) 10^3/uL RBC (4.20-5.40) 10^6/uL Hgb (12.0-16.0) g/dL Hct (36.0-48.0) % MCV (81.0-99.0) fL MCH (26.7-34.0) pg MCHC (29.9-35.2) g/dL RDW (11.0-15.0) % Plt Count (150-450) 10^3/uL MPV (9.5-13.5) fL Neut % (Auto) (43.0-75.0) % Lymph % (Auto) (20.5-60.0) % [place] % (Auto) (1.7-12.0) % Eos % (Auto) (0.9-7.0) % Baso % (Auto) (0.2-2.0) % Neut # (Auto) (1.4-6.5) 10^3/uL Lymph # (Auto) (1.2-3.8) 10^3/uL [place] # (Auto) (0.3-0.8) 10^3/uL Eos # (Auto) (0.0-0.7) 10^3/uL Baso # (Auto) (0.0-0.1) 10^3/uL Abs Immat Gran (auto) (0.00-0.03) 10^3/uL Imm/Tot Granulo (auto) (0.0-0.5) % Sodium (136-145) mmol/L Potassium (3.5-5.1) mmol/L Chloride (98-107) mmol/L Carbon Dioxide (21.0-32.0) mmol/L Anion Gap BUN (7.0-18.0) mg/dL Creatinine (0.55-1.02) mg/dL Est GFR ( Amer) (>=60) Est GFR (Non-Af Amer) (>=60) BUN/Creatinine Ratio Glucose (74-106) mg/dL Lactate (0.4-2.0) mmol/L Calcium (8.5-10.1) mg/dL Total Bilirubin (0.2-1.0) mg/dL AST (15-37) U/L ALT (14-59) U/L Alkaline Phosphatase (46-116) U/L Troponin I High Sens (4.0-51.3) pg/mL NT-Pro-B Natriuret Pep (<=1800.0) pg/mL Total Protein (6.4-8.2) g/dL Albumin (3.4-5.0) g/dL Globulin g/dL Albumin/Globulin Ratio Procalcitonin (0.00-0.50) ng/mL Urine Color Lt. yellow (YELLOW) Urine Clarity Clear (CLEAR) Urine pH 6.0 (5.0-9.0) Ur Specific [place] 1.025 (1.005-1.025) Urine Protein Trace (NEG/TRACE) mg/dL Urine Glucose (UA) Negative (NEGATIVE) mg/dL Urine Ketones Negative (NEGATIVE) mg/dL Urine Occult Blood Trace-i (NEGATIVE) Urine Nitrite Positive A (NEGATIVE) Urine Bilirubin Negative (NEGATIVE) Urine Urobilinogen 0.2 (0.2-1.0) EU/dL Ur Leukocyte Esterase Small A (NEGATIVE) Urine RBC None seen (0-2) #/HPF Urine WBC 50-75 A (NONE SEEN) #/HPF Ur Squamous Epith Cells Many A (NONE/RARE) #/LPF Urine Crystals None seen (None Seen) #/HPF Urine Bacteria Large A (NONE SEEN) #/HPF Urine Casts None seen (NONE SEEN) #/LPF Urine Mucus Trace A (NONE SEEN) Ur Culture Indicated? Yes Adenovirus (PCR) (NOT DETECTE) B. pertussis DNA (PCR) (NOT DETECTE) B.parapertussis DNA PCR (NOT DETECTE) C. pneumoniae DNA (PCR) (NOT DETECTE) Coronavirus Type OC43 (NOT DETECTE) Coronavirus Type HKU1 (NOT DETECTE) Coronavirus Type 229E (NOT DETECTE) Coronavirus Type NL63 (NOT DETECTE) Human Metapneumovir PCR (NOT DETECTE) Influenza Type A (PCR) (NOT DETECTE) Influenza Type B (PCR) (NOT DETECTE) M. pneumoniae (PCR) (NOT DETECTE) Parainfluenza PCR (NOT DETECTE) Parainfluenza 2 (PCR) (NOT DETECTE) Parainfluenza 3 (PCR) (NOT DETECTE) Parainfluenza 4 (PCR) (NOT DETECTE) RSV (RT-PCR) (NOT DETECTE) Entero/Rhino (PCR) (NOT DETECTE) SARS-CoV-2 (PCR) (NOT DETECTE) POC Glucose (74-106) mg/dL ECG Data Attestation: I personally reviewed and interpreted this ECG as follows: (Sinus rhythm 80 bpm, left bundle branch block, left axis deviation, no acute ST segment elevation or T wave inversion) Discharge Plan Discharge Chief Complaint: Recheck/Abnormal Lab/Rx Clinical Impression: Acute kidney injury, Hypoglycemia, Weakness, Acute UTI Patient Disposition: Admitted as Observation Time of Disposition Decision: 00:35 Condition: Good Prescriptions / Home Meds: No Action sertraline 100 mg tablet 100 mg PO QAM clopidogrel 75 mg tablet 75 mg PO QDAY trazodone 100 mg tablet 100 mg PO QPM pantoprazole 40 mg tablet,delayed release (DR/EC) 40 mg PO QDAY gabapentin 300 mg capsule 300 mg PO Q12H letrozole 2.5 mg tablet 2.5 mg PO Q24H ondansetron 4 mg tablet,disintegrating 4 mg PO Q8H PRN (Reason: nausea and vomiting) Levemir FlexPen 100 unit/mL (3 mL) insulin pen 30 unit SUBCUT QPM Januvia 50 mg tablet 50 mg PO QAM metoprolol succinate 25 mg tablet extended release 24 hr 25 mg PO DAILY insulin aspart U-100 100 unit/mL (3 mL) insulin pen 1 sliding scale dose SUBCUT .WM Rx Instructions: 8-12 UNITS WITH MEALS aspirin 81 mg capsule 81 mg PO DAILY Qty: 30 0RF atorvastatin 20 mg tablet 20 mg PO QPM Qty: 30 0RF Print Language: Turkmen Referrals: PAM STINSON [Primary Care Provider] - 1 week
[2024-04-05 22:25] LABS: Adenovirus NOT DETECTED (NOT DETECTE); Bordetella parapertussis NOT DETECTED (NOT DETECTE); Coronavirus 229E NOT DETECTED (NOT DETECTE); Coronavirus HKU1 NOT DETECTED (NOT DETECTE); Coronavirus NL63 NOT DETECTED (NOT DETECTE); Coronavirus OC43 NOT DETECTED (NOT DETECTE); Human Metapneumovirus NOT DETECTED (NOT DETECTE); Human Rhinovirus/Enterovirus NOT DETECTED (NOT DETECTE); Influenza A NOT DETECTED (NOT DETECTE); Influenza B NOT DETECTED (NOT DETECTE); Mycoplasma pneumoniae NOT DETECTED (NOT DETECTE); Parainfluenza Virus 1 NOT DETECTED (NOT DETECTE); Parainfluenza Virus 2 NOT DETECTED (NOT DETECTE); Parainfluenza Virus 3 NOT DETECTED (NOT DETECTE); Parainfluenza Virus 4 NOT DETECTED (NOT DETECTE); Respiratory Syncytial Virus NOT DETECTED (NOT DETECTE); SARS-CoV-2 NOT DETECTED (NOT DETECTE)
[2024-04-05 22:25] LABS: Basophils Percent Auto 0.2 % (0.2-2.0); Eosinophils Absolute Auto 0.1 10^3/uL (0.0-0.7); Eosinophils Percent Auto 0.6 % (0.9-7.0); Hematocrit 30.8 % (36.0-48.0); Hemoglobin 9.5 g/dL (12.0-16.0); Immature Granulocytes Abs Auto 0.06 10^3/uL (0.00-0.03); Immature Granulocytes Pct Auto 0.5 % (0.0-0.5); Lymphocytes Absolute Auto 0.7 10^3/uL (1.2-3.8); Lymphocytes Percent Auto 5.7 % (20.5-60.0); Mean Corpuscular HGB Conc 30.8 g/dL (29.9-35.2); Mean Corpuscular Hemoglobin 28.3 pg (26.7-34.0); Mean Corpuscular Volume 91.7 fL (81.0-99.0); Mean Platelet Volume 10.1 fL (9.5-13.5); Monocytes Absolute Auto 0.8 10^3/uL (0.3-0.8); Monocytes Percent Auto 6.3 % (1.7-12.0); Neutrophils Absolute Auto 10.9 10^3/uL (1.4-6.5); Neutrophils Percent Auto 86.7 % (43.0-75.0); Platelet Count 219 10^3/uL (150-450); Red Blood Count 3.36 10^6/uL (4.20-5.40); Red Cell Distribution Width 14.7 % (11.0-15.0); White Blood Count 12.6 10^3/uL (4.0-11.0)
[2024-04-05] MEDS: ACETAMINOPHEN 325 MG TABLET 650 MG PO (22:39)
[2024-04-05] MEDS: 0.9 % SODIUM CHLORIDE 1,000 ML 999 ML IV (22:39)
[2024-04-05 22:43] LABS: Alanine Aminotransferase 16 U/L (14-59); Albumin Globulin Ratio 0.9; Albumin Level 3.6 g/dL (3.4-5.0); Alkaline Phosphatase 87 U/L (46-116); Aspartate Amino Transferase 18 U/L (15-37); BUN Creatinine Ratio 15.8; Bilirubin Total 0.3 mg/dL (0.2-1.0); Carbon Dioxide 29.5 mmol/L (21.0-32.0); Chloride 102 mmol/L (98-107); Estimated GFR (African America 38 (>=60); Estimated GFR (Non-African Ame 32 (>=60); Globulin 4.2 g/dL; Glucose 118 mg/dL (74-106); Potassium 4.5 mmol/L (3.5-5.1); Sodium 138 mmol/L (136-145); Total Protein 7.8 g/dL (6.4-8.2)
--- NOTE | 2024-04-05 22:44 | PC.NURSE ---
Pt presents to ER via EMS for low blood sugar / general illness Per report pt's blood sugar was 70 which is low for her causing the pt to be symptomatic Per pt her sugar is normally in the 200's Pt feels hot to the touch, skin is pink and dry Low grade fever on the oral thermometer but pt is mouth breathing Pt on O2 on arrival, does not wear at home Nurse removed nasal canula to switch to our set of tubing and in this time pt dropped to low 80's on room air but quickly improved when placed back on 3 liters Per report pt had eaten at home and then threw up Pt at this time is resting in bed denies pain or discomfort Pt states she does not feel short of breath and is oxygenating well but appears to be working to breath
[2024-04-05 22:45] LABS: Lactate/Lactic Acid 0.9 mmol/L (0.4-2.0)
[2024-04-05 22:51] LABS: Troponin I High Sensitivity 8.9 pg/mL (4.0-51.3)
[2024-04-05 22:59] LABS: PROCALCITONIN 0.06 ng/mL (0.00-0.50)
[2024-04-05 23:56] LABS: Bilirubin Urine NEGATIVE (NEGATIVE); Blood Urine TRACE-I (NEGATIVE); Clarity Urine CLEAR (CLEAR); Color Urine LT. YELLOW (YELLOW); Glucose Urine UA NEGATIVE (NEGATIVE); Ketones Urine NEGATIVE (NEGATIVE); Leukocyte Esterase Urine SMALL (NEGATIVE); Nitrite Urine POSITIVE (NEGATIVE); Protein Urine TRACE mg/dL (NEG/TRACE); Specific Gravity Urine 1.025 (1.005-1.025); Urine Microscopic Indicated YES; Urobilinogen Urine 0.2 EU/dL (0.2-1.0)
[2024-04-06] VITALS (57 sets, daily range): BP systolic 75–143; BP diastolic 36–85; PULSE 60–97; TEMP 36.3–39.4; O2SAT 83–100; BMI 33.9
[2024-04-06 00:03] LABS: Bacteria Urine LARGE #/HPF (NONE SEEN); Cast Seen? NONE SEEN #/LPF (NONE SEEN); Crystals Seen? None Seen #/HPF (None Seen); Mucus Urine TRACE (NONE SEEN); RBC Urine NONE SEEN #/HPF (0-2); Squamous Epithelial Cell Urine MANY #/LPF (NONE/RARE); Urine Culture Indicated YES; WBC Urine 50-75 #/HPF (NONE SEEN)
[2024-04-06] MEDS: CEFTRIAXONE 1,000 MG in 0.9 % SODIUM CHLORIDE 50 ML 100 MG IV (00:51)
[2024-04-06] MEDS: AZITHROMYCIN 500 MG in 0.9 % SODIUM CHLORIDE 250 ML 250 MG IV (01:22)
[2024-04-06 02:17] LABS: Glucometer 374 mg/dL (74-106)
--- OUTSIDE RECORDS SUMMARY | 2024-04-06 02:20 | XMS_ITS | CCD ---
Author Organization [facility] Team Providers Care Replanting Machine Operator Name Role Phone Caden Sanchez Primary Care [...] Sanchez Primary Care Provider Unavaildeshawn Ley MANAGER EXPORT - ROTO MIXER OPERATOR, Pam De La Rosa Primary Care Prov [...] Attending Unavailable MARITZA MIDDLETON Admitting Unavailable Ley MANAGER EXPORT-ROTO MIXER OPERATOR, Pam De La Rosa Primary Care Provid er PAM LEY Referring Unavailable LEY, PAM De La Rosa Primary Care Unavailable LEY, PAM De La Rosa Attending Unavailable LEY, PAM De La Rosa Referring Unavailable LEY, PAM De La Rosa Primary Care Unavailable LEY, PAM De La Rosa Primary [...] Date of Onset Reaction(s) Facility (1 source) 94255,00 Drug allergy (disorder) 01-23-2020 [facility] Repository Medications Current Medications Medication Drug [...] nephropathy, without long-term current use of insulin ([facility] Monitor blood sugars four times daily and [...] the morning. 0 09/29/2022 Active [employer] misc (5 sources) Start: 05-06-2023 [employer] misc 1 Device by drain unit route See Admin Instructions. 0 05/06/2023 Active dextromethorphan hydrobromide 1.5 mg/ml / pyrilamine maleate 1.5 mg/ml oral solution (3 sources) Uncompetitive R-yguvzk-G-asparta te Receptor Antagonist, Sigma-1 Agonist Start: 12-15-2023 [...] nephropathy, without long-term current use of insulin ([facility]) INJECT 30 UNITS UNDER THE SKIN NIGHTLY [...] hyperlipidemia associated with type 2 diabetes mellitus ([facility]) Inject 2 Units under the skin 4 [...] right female breast, unspecified estrogen receptor status ([facility]) TAKE 1 TABLET BY MOUTH EVERY DAY [...] (5 sources) Start: 01-01-2021 miscellaneous medical supply [facility] Indications: Medication management 1 Unit by miscellaneous [...] injecti on 4 mg polyethylene glycol 3350 56295 mg powder for oral solution (1 source) [...] coronary artery; Translations: [Atherosclerotic heart disease of [place] coronary artery without angina pectoris] Onset: 1 [...] 8 10-26-2018 Chronic Other aftercare (2 sources) 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 Electronically signed: Eddi Tapia. [facility] Comment on above: Order Comment: In on e year, follow up ventricle size s/p CROWN POUNCER shunt Follow-Upon 03-16-2024 Follow-Up [id number] Jb Goodwin 1945 F Date Provider Department Center 03/16/2024 [facility] [place] Family History Problem Relation Age of Onset Diabetes Mother Hypertension Father Coronary artery disease Father Family Status - Relation Status Age at Mother Father Level of Service:65041 MI OFFICE/OUTPATIENT ESTABLISHED MOD MDM 30 MIN Reason for Visit and Comments: Follow-up [627243] - Pt is here for a [address]/VPSS. [facility] 36on 02-28-2024 36 LVM with pt's daught er updating her on above mentioned. [facility] 36 Pt's daughter Isidoro arnett called stating that pt is currently admitted to [facility] for possible stroke. Ileana stated that pt's speech was slurred and right side of face was drooping. [employer] is needing Shunt make and model numbers prior to MRI. I am unable to locate. [facility] PET CT SKULL TO THIGHon PET CT [...] Acevedo MD on 02/20/2024 6:[address] [facility] 36on 02-11-2024 36 Spoke with daughter. Daughter stated that she would like to keep CT and appt times as is. No further action needed. [facility] 36on 02-10-2024 36 Pts daughter called in requesting if Pts appt could be moved up along with her CT to 03/06/24 due to traveling. Daughter states hse has an appt here at 2:45 Please Advise. Thank You [facility] Telephoneon 02-10-2024 Telephone [id number] Jb Goodwin fab Casas 1945 F Date Provider Department Center 02/10/2024 [facility] [place] Family History Problem Relation Age of Onset Diabetes Mother Hypertension Father Coronary artery disease Father Family Status - Relation Status Age at Mother Father Normal [facility] POCT urinalysis dipstick onl yon 02-09-2024 Appearance (U) cloudy [facility] External Poct Urine Bilirubin Negative [facility] External Poct Urine Blood Trace [facility] External Poct Urine Color yellow [facility] External Poct Urine Glucose Negative [facility] External Poct Urine Ketones Negative [facility] External Poct Urine Leukocyte Esterase 2+ [facility] External Poct Urine Nitrite Positive [facility] External Poct Urine Ph 6.5 [facility] External Poct Urine Protein Trace [facility] External Poct Urine Specific [place] 1.020 [facility] External Poct Urine Urobilinogen 0.2 [facility] URINE CULTUREon 02-09-2024 Bacteria identified Cx Nom [...] F TRIMETH/SULFAMETHOXAZOL E S <=/ F Susceptible [facility] Comment on above: Performed By: #### 6 30-4 #### [facility] ([id number]) [address], [address] [place] [address] 36on 02-07-2024 36 LVM for pt of upcomi ng CT/VPSS and follow up with Vale Bowser CNP. Reminder letter sent to pt's home. Normal [facility] ALBUMINon 01-10-2024 Albumin [Mass/Vol] 4.0 g/dL Normal 3.2-5.3 [facility] Comment on above: Performed By: #### C TIFFANY, BMP, 175-7, 21792-7, 2777-1, 2731-8, 20712-3 #### [facility] ([id number]) [address], [address] [place] [address] BASIC METABOLIC PANLon 01-10 Anion gap [Moles/Vol] 8 mmol/L Normal 5-[address] [facility] Comment on above: Performed By: #### C TIFFANY, BMP, 1751-7, 49289-5, 2777-1, 2731-8, 92976-4 #### [facility] ([id number]) [address], [address] [place] [address] Calcium [Mass/Vol] 9.1 mg/dL Normal 8.5-10.5 [facility] Comment on above: Performed By: #### C BC, BMP, 1751-7, 37532-1, 2777-1, 2731-8, 21771-5 #### [facility] ([id number]) [address], [address] [place] [address] Chloride [Moles/Vol] 101 mmol/L Normal 98-[address] [facility] Comment on above: Performed By: #### C BC, BMP, 175-7, 76404-1, 2777-1, 2731-8, 37323-5 #### [facility] ([id number]) [address], [address] [place] [address] CO2 [Moles/Vol] 29 mmol/L Normal 22-[address] [facility] Comment on above: Performed By: #### C BC, BMP, 1750-7, 13483-7, 2777-1, 2731-8, 52982-9 #### [facility] ([id number]) [address], [address] [place] [address] Creatinine [Mass/Vol] 1.46 mg/dL High 0.40-1.[address] [facility] Comment on above: Result Comment: METH OD TRACEABLE TO IDMS STANDARD Performed By: #### C BC, BMP, 1750-7, 75529-7, 2777-1, 2731-8, 09008-4 #### [facility] ([id number]) [address], [address] [place] [address] GFR/1.73 sq M.predicted among non-blacks MDRD (S/P/Bld) [Vol rate/Area] 37 mL/min/{1.73_m2} Low >[address] [facility] Comment on above: Result Comment: Reported eGFR is based on the CKD-EPI 2020 equation that does not use a race coefficient. Performed By: #### C BC, BMP, 1750-7, 96453-9, 2777-1, 2731-8, 46968-0 #### [facility] ([id number]) [address], [address] [place] [address] Glucose [Mass/Vol] 300 mg/dL High 65-99 [facility] Comment on above: Performed By: #### C BC, BMP, 1750-7, 25733-5, 2777-1, 2731-8, 54200-8 #### [facility] ([id number]) [address], [address] [place] [address] Potassium [Moles/Vol] 4.4 mmol/L Normal 3.5-5.[address] [facility] Comment on above: Performed By: #### C BC, BMP, 175-7, 26801-5, 2777-1, 2731-8, 86302-3 #### [facility] ([id number]) [address], [address] [place] [address] Sodium [Moles/Vol] 138 mmol/L Normal 134-146 [facility] Comment on above: Performed By: #### C BC, BMP, 1750-7, 64375-8, 2777-1, 273-8, 27575-0 #### [facility] ([id number]) [address], [address] [place] [address] Urea nitrogen [Mass/Vol] 26 mg/dL Normal 5-[address] [facility] Comment on above: Performed By: #### C BC, BMP, 1750-7, 13689-5, 2777-1, 273-8, 14019-4 #### [facility] ([id number]) [address], [address] [place] [address] COMPLETE BLOOD COUNTon 01-10 Erythrocyte distribution width (RBC) [Ratio] 15.2 % High 11.5-15.[address] [facility] Comment on above: Performed By: #### Renita BC, BMP, 175-7, 49163-9, 2777-1, 2731-8, 20183-5 #### [facility] ([id number]) [address], [address] [place] [address] Hematocrit (Bld) [Volume fraction] 31.6 % Low 35-[address] [facility] Comment on above: Performed By: #### C BC, BMP, 175-7, 89368-2, 2777-1, 2731-8, 52237-3 #### [facility] ([id number]) [address], [address] [place] [address] Hemoglobin (Bld) [Mass/Vol] 10.3 g/dL Low 11.7-15.[address] [facility] Comment on above: Performed By: #### C BC, BMP, 1750-7, 79252-6, 2777-1, 273-8, 37249-5 #### [facility] ([id number]) [address], [address] [place] [address] MCH (RBC) [Entitic mass] 27.7 pg Normal 27-[address] [facility] Comment on above: Performed By: #### Renita BC, BMP, 1750-7, 05262-6, 2776-1, 2730-8, 78561-4 #### [facility] ([id number]) [address], [address] [place] [address] MCHC (RBC) [Mass/Vol] 32.5 g/dL Normal 32-[address] [facility] Comment on above: Performed By: #### Renita BC, BMP, 1751-05, 04348-5, 2776-1, 2730-8, 02178-3 #### [facility] ([id number]) [address], [address] [place] [address] MCV (RBC) [Entitic vol] 85 fL Normal 80-[address] [facility] Comment on above: Performed By: #### Renita BC, BMP, 1750-7, 91064-6, 7-1, 273-8, 27893-8 #### [facility] ([id number]) [address], [address] [place] [address] Platelet mean volume (Bld) [Entitic vol] 8.5 fL Normal 7-[address] [facility] Comment on above: Performed By: #### Renita BC, BMP, 1750-, 83023-4, 7-1, 273-8, 21637-7 #### [facility] ([id number]) [address], [address] [place] [address] Platelets (Bld) [#/Vol] 231 10*3/uL Normal 150-[address] [facility] Comment on above: Performed By: #### Renita BC, BMP, 1750-7, 59702-8, 2777-1, 2731-8, 69431-2 #### [facility] ([id number]) [address], [address] [place] [address] RBC COUNT 3.70 X10E12/L Low 3.80-5.[address] [facility] Comment on above: Performed By: #### Renita BC, BMP, 1750-7, 30276-1, 7-1, 2730-8, 00517-3 #### [facility] ([id number]) [address], [address] [place] [address] WBC (Bld) [#/Vol] 4.8 10*3/uL Normal 4.0-11.0 [facility] Comment on above: Performed By: #### Renita BC, BMP, 1750-, 01689-2, 7-1, 273-8, 75422-7 #### [facility] ([id number]) [address], [address] [place] [address] HGB A1C (GLYCO-HGB)on 2023 Glucose [Mass/Vol] 203 mg/dL Normal [facility] Comment on above: Performed By: #### Renita BC, BMP, 1750-7, 78638-5, 2777-1, 2731-8, 63553-9 #### [facility] ([id number]) [address], [address] [place] [address] HbA1c (Bld) [Mass fraction] 8.7 % High 4.4-5.[address] [facility] Comment on above: Result Comment: NOTE ADA Guidelines Result HgbA1c Normal : less than 5.7 % Prediabetes : 5.7 % to 6.4 % Diabetes : > 6.4 % Use with caution in patients with abnormal hemoglobin variants as the half-life of red blood cells and in vivo glycation rates are affected. Performed By: #### Renita ALLEN, BMP, 1750-7, 82742-2, 2777-1, 2731-8, 78499-3 #### [facility] ([id number]) [address], [address] [place] [address] MAGNESIUMon 01-10-2024 Magnesium [Mass/Vol] 1.9 mg/dL Normal 1.8-2.[address] [facility] Comment on above: Performed By: #### Renita ALLEN, WILSON, 7, 34000-0, 7-1, 2731-8, 51064-8 #### [facility] ([id number]) [address] [place] [address] PHOSPHORUSon 01-10-2024 Phosphate [Mass/Vol] 3.8 mg/dL Normal 2.4-4.[address] [facility] Comment on above: Performed By: #### Renita ALLEN, BMP, 1750-7, 19599-7, 7-1, 2731-8, 31239-9 #### [facility] ([id number]) [address] [place] [address] Parathyrin.intact [Mass/Vol] on 01-10-2024 PTH INTACT 71 pg/mL Normal 12-[address] [facility] Comment on above: Performed By: #### Renita ALLEN, BMP, 1750-7, 37575-6, 2776-1, 273-8, 88181-0 #### [facility] ([id number]) [address], [address] [place] [address] Vitamin D+Metabolites [Mass/ Vol]on 01-10-2024 VITAMIN D 25 HYD TOT 38.9 ng/mL Normal 30-[address] [facility] Comment on above: Result Comment: Vitamin D status 25 [place] Vitamin D Deficiency <20 ng/mL Insufficiency 20-29 ng/mL Sufficiency 30-100 ng/mL Toxicity >100 ng/mL NOTE: A pediatric reference range has not been established by the boring mill set up operator vertical of this kit. The [place] [employer] recommends a Vitamin D level of = or >20ng/mL in infants and children. Performed By: #### C BC, BMP, 1751-7, 20968-4, 2777-1, 2731-8, 63260-2 #### [facility] ([id number]) [address] [place] [address] Follow-Upon 03-23-2023 Follow-Up [id number] Jb Goodwin 1945 F Date Provider Department Center 03/23/2023 [facility] SURG [place] Family History Problem Relation Age of Onset Diabetes Mother Hypertension Father Coronary artery disease Father Family Status - Relation Status Age at Mother Father Level of Service:01718 MI OFFICE/OUTPATIENT ESTABLISHED LOW MDM 20-29 MIN Reason for Visit and Comments: Follow-up [314608] - shunt check s/p mri; Patient has been off balance. Normal [facility] CT CARDIAC W [facility] CARD ONLYon 01-18-2023 CT CARDIAC W [facility] CARD ONLY EXAMINATION: CT HEART WITH [...] valve measurements were analyzed and provided by [employer] and are reported separately to the cardiology department. 3. Severe triple-vessel coronary artery calcifications. 4. Small sliding hiatal hernia. Interpreted by: Brennan Parra MD Signed by: Brennan Parra MD 01/18/23 Final result Normal [facility] CTA CHEST ABDOMEN PELVIS W C [facility] 01-15-2023 CTA CHEST ABDOMEN PELVIS [...] with a couple of ill-defined sclerotic foci. CROWN POUNCER shunt tubing in the right neck and [...] adenopathy. Very small fat containing umbilical hernia. CROWN POUNCER shunt tubing enters the abdomen in the [...] pelvis which may be related to the CROWN POUNCER shunt catheter. There is a cystic left [...] for planned (more content not included)... Normal [facility] No acute abnormality identified on CTA [...] recommended. 5 mm subpleural right lung nodule. CROWN POUNCER shunt noted. Small hiatal hernia. The findings [...] with a couple of ill-defined sclerotic foci. CROWN POUNCER shunt tubing in the right neck and [...] adenopathy. Very small fat containing umbilical hernia. CROWN POUNCER shunt tubing enters the abdomen in the [...] pelvis which may be related to the CROWN POUNCER shunt catheter. There is a cystic left [...] in the left flank and gluteal regions. [facility] RIS CONSOLIDATED Tato Syed MD - 01/15/2023 [...] with a couple of ill-defined sclerotic foci. CROWN POUNCER shunt tubing in the right neck and [...] adenopathy. Very small fat containing umbilical hernia. CROWN POUNCER shunt tubing enters the abdomen in the [...] pelvis which may be related to the CROWN POUNCER shunt catheter. There is a cystic left [...] and gluteal regions. (more content not included)... [employer] Work Phone: CTA CHEST ABDOMEN PELVIS W C ONTRASTOrdered By: Tato Syed on 01-15-2023 [employer] Work Phone: PULMONARY FUNCTIONon 0[address] [phone] PULMONARY FUNCTION PATIENT NAME: CUCA GOODWIN : 1945 MED REC NO: [id number] ROOM: ACCOUNT NO: [id number] ADMIT DATE: 01/13/2023 PROVIDER: Whit Maloney DATE [...] correlation is recommended. WHIT MALONEY [id number] Doc#: [id number] CC: Normal [facility] CTA CHEST ABDOMEN PELVIS W C [facility] 01-13-2023 Radiology Study observation (narrative) [facility] Work Phone: POC Glucose Fingerstickon Glucose [Mass/Vol] 104 mg/dL 65 - 105 mg/dL [facility] [employer] [facility] [employer] Basic Metabolic Panelon 11-16 Anion gap [Moles/Vol] 11 mmol/L 9 - 17 mmol/L [facility] [employer] Calcium [Mass/Vol] 9.0 mg/dL 8.6 - 10. 4 mg/dL [facility] [employer] Chloride [Moles/Vol] 105 mmol/L 98 - 107 mmol/L [facility] [employer] CO2 [Moles/Vol] 20 mmol/L 20 - 31 mmol/L [facility] [employer] Creatinine [Mass/Vol] 1.04 mg/dL High 0.50 - 0.90 mg/dL [facility] [employer] GFR/1.73 sq M.predicted MDRD (S/P/Bld) [Vol rate/Area] [...] [Mass/Vol] 17 mg/dL 8 - 23 mg/dL [facility] Basic Metabolic Profon 12-10 Anion gap [Moles/Vol] 11 mmol/L Normal 9-17 [facility] Comment on above: Performed By: #### H H, BMPX #### [employer] [address] [place] [address] [phone] News Department Intern: Luis Solis MD Calcium [Mass/Vol] 9.0 mg/dL Normal 8.6-10.4 [facility] Comment on above: Performed By: #### H H, BMPX #### [employer] [address] [place], [place] [phone] News Department Intern: Luis Solis MD Chloride [Moles/Vol] 105 mmol/L Normal 98-107 [facility] Comment on above: Performed By: #### H H, BMPX #### [employer] [address] [place], [place] [phone] News Department Intern: Luis Solis MD CO2 [Moles/Vol] 20 mmol/L Normal 20-31 [facility] Comment on above: Performed By: #### H H, BMPX #### [facility] [employer] [address] [place] [address] News Department Intern: Luis Solis MD Creatinine [Mass/Vol] 1.04 mg/dL High 0.50-0.90 [facility] Comment on above: Performed By: #### H H, BMPX #### [address] [address] News Department Intern: Luis Solis MD GFR/1.73 sq M.predicted among non-blacks MDRD (S/P/Bld) [Vol rate/Area] 56 mL/min/{1.73_m2} Low >60 [facility] Comment on above: Result Comment: These [...] Performed By: #### H H, BMPX #### [address] [address] News Department Intern: Luis Solis MD Glucose [Mass/Vol] 131 mg/dL High 70-99 [facility] Comment on above: Performed By: #### H H, BMPX #### [facility] [employer] [address] [place] [address] News Department Intern: Luis Solis MD Potassium [Moles/Vol] 4.3 mmol/L Normal 3.7-5.3 [facility] Comment on above: Performed By: #### H H, BMPX #### [facility] [employer] [address] [place] [address] News Department Intern: Luis Solis MD Sodium [Moles/Vol] 136 mmol/L Normal 135-144 [facility] Comment on above: Performed By: #### H H, BMPX #### [employer] [address] [place] [address] [phone] News Department Intern: Luis Solis MD Urea nitrogen [Mass/Vol] 17 mg/dL Normal 8-23 [facility] Comment on above: Performed By: #### H H, BMPX #### [employer] [address] [place] [address] [phone] News Department Intern: Luis Solis MD Hemoglobin and Hematocriton 12-10-2022 Hematocrit (Bld) [Volume fraction] 25.5 % Low 36.3 - 47.1 % [facility] Hemoglobin (Bld) [Mass/Vol] 7.9 g/dL Low 11.9 - 15.1 g/dL [facility] Interpretation and review of laboratory results Abnormal [facility] Hgb/Hcton 12-10-2022 Hematocrit (Bld) [Volume fraction] 25.5 % Low 36.3-47.1 [facility] Comment on above: Performed By: #### H H, BMPX #### [employer] [address] [place] [address] [phone] News Department Intern: Luis Solis MD Hemoglobin (Bld) [Mass/Vol] 7.9 g/dL Low 11.9-15.1 [facility] Comment on above: Performed By: #### H H, BMPX #### [employer] [address] [place] [address] [phone] News Department Intern: Luis Solis MD Laboratory - Blood bankon Blood product type Nom (BPU) Leukocyte Reduced Red Cell [facility] No Panel Informationon 12-10 Blood Bank ISBT Product Blood Type 9500 [facility] Blood Bank Unit Type and Rh Negative [facility] Crossmatch Result COMPATIBLE [facility] Dispense Status TRANSFUSED [facility] Transfusion Status OK TO TRANSFUSE B ON [facility] Unit Divison 0 [facility] POC Glucose Fingerstickon Glucose [Mass/Vol] 105 mg/dL 65 - 105 mg/dL [facility] Glucose [Mass/Vol] 119 mg/dL High 65 - 105 mg/dL [facility] Interpretation and review of laboratory results Abnormal [facility] Glucose [Mass/Vol] 159 mg/dL High 65 - 105 mg/dL [facility] Interpretation and review of laboratory results Abnormal [facility] Glucose [Mass/Vol] 70 mg/dL 65 - 105 mg/dL [facility] Glucose [Mass/Vol] 41 mg/dL Low 65 - 105 mg/dL [facility] Comment on above: Critical Noted Interpretation and review of laboratory results Abnormal [facility] TYPE AND SCREENon 12-10-2022 ABO/Rh Negative [facility] Arm Band Number [id number] [facility] Blood Bank Blood Product Expiration Date [id number] [facility] Blood Bank Blood Product Expiration Date [id number] [facility] Blood Bank Blood Product Expiration Date [id number] [facility] Blood product unit ID (Dose) [#] [id number] [facility] Blood product unit ID (Dose) [#] [id number] [facility] Blood product unit ID (Dose) [#] [id number] [facility] Expiration Date 12/10/2022,2359 [facility] Product Code Blood Bank [id number] [facility] Product Code Blood Bank [id number] [facility] Product Code Blood Bank [id number] [facility] Unit Issue Date/Time [id number] [facility] Unit Issue Date/Time [id number] [facility] Unit Issue Date/Time [id number] [facility] Basic Metab w/rfx MGon 12-09 Anion gap [Moles/Vol] 10 mmol/L Normal 9-17 [facility] Comment on above: Performed By: #### H H, BMPX #### [facility] [address] [place] [address] News Department Intern: Luis Solis MD Calcium [Mass/Vol] 8.6 mg/dL Normal 8.6-10.4 [facility] Comment on above: Performed By: #### H H, BMPX #### [facility] [employer] [address] [place] [address] News Department Intern: Luis Solis MD Chloride [Moles/Vol] 106 mmol/L Normal 98-107 [facility] Comment on above: Performed By: #### H H, BMPX #### [facility] [employer] [address] [place] [address] News Department Intern: Luis Solis MD CO2 [Moles/Vol] 21 mmol/L Normal 20-31 [facility] Comment on above: Performed By: #### H H, BMPX #### [facility] [employer] [address] [place] [address] 75675 News Department Intern: Luis Solis MD Creatinine [Mass/Vol] 1.33 mg/dL High 0.50-0.90 [facility] Comment on above: Performed By: #### H H, BMPX #### [facility] [employer] [address] [place] [address] 44478 News Department Intern: Luis Solis MD GFR/1.73 sq M.predicted among non-blacks MDRD (S/P/Bld) [Vol rate/Area] 41 mL/min/{1.73_m2} Low >60 [facility] Comment on above: Result Comment: Effective [...] Performed By: #### H H, BMPX #### [facility] [address] [place] [address] 71265 News Department Intern: Luis Solis MD Glucose [Mass/Vol] 102 mg/dL High 70-99 [facility] Comment on above: Performed By: #### H H, BMPX #### [facility] [address] [place] [address] 15583 News Department Intern: Luis Solis MD Potassium [Moles/Vol] 4.1 mmol/L Normal 3.7-5.3 [facility] Comment on above: Performed By: #### H H, BMPX #### [employer] [address] [place] [address] 07428 News Department Intern: Luis Solis MD Sodium [Moles/Vol] 137 mmol/L Normal 135-144 [facility] Comment on above: Performed By: #### H H, BMPX #### [employer] [address] [place] [address] 04166 News Department Intern: Luis Solis MD Urea nitrogen [Mass/Vol] 19 mg/dL Normal 8-23 [facility] Comment on above: Performed By: #### H H, BMPX #### [employer] [address] [place] [address] 68193 News Department Intern: Luis Solis MD Basic Metabolic Panel w/ Ref pierre to MGon 12-09-2022 Anion gap [Moles/Vol] 10 mmol/L 9 - 17 mmol/L [facility] Calcium [Mass/Vol] 8.6 mg/dL 8.6 - 10. 4 mg/dL [facility] Chloride [Moles/Vol] 106 mmol/L 98 - 107 mmol/L [facility] CO2 [Moles/Vol] 21 mmol/L 20 [...] [Mass/Vol] 19 mg/dL 8 - 23 mg/dL [facility] Hemoglobin and Hematocriton 12-09-2022 Hematocrit (Bld) [Volume fraction] 25.6 % Low 36.3 - 47.1 % [facility] Hemoglobin (Bld) [Mass/Vol] 8.0 g/dL Low 11.9 - 15.1 g/dL [facility] Interpretation and review of laboratory results Abnormal [facility] Hematocrit (Bld) [Volume fraction] 23.5 % Low 36.3 - 47.1 % [facility] Hemoglobin (Bld) [Mass/Vol] 7.1 g/dL Low 11.9 - 15.1 g/dL [facility] Interpretation and review of laboratory results Abnormal [facility] Hgb/Hcton 12-09-2022 Hematocrit (Bld) [Volume fraction] 25.6 % Low 36.3-47.1 [facility] Comment on above: Performed By: #### H H, BMPX #### [facility] [address] [place] [address] News Department Intern: Luis Solis MD Hemoglobin (Bld) [Mass/Vol] 8.0 g/dL Low 11.9-15.1 [facility] Comment on above: Performed By: #### H H, BMPX #### [facility] [address] [place] [address] 34926 News Department Intern: Luis Solis MD Hematocrit (Bld) [Volume fraction] 23.5 % Low 36.3-47.1 [facility] Comment on above: Performed By: #### H H, BMPX #### [facility] [address] [place] [address] 03642 News Department Intern: Luis Solis MD Hemoglobin (Bld) [Mass/Vol] 7.1 g/dL Low 11.9-15.1 [facility] Comment on above: Performed By: #### H H, BMPX #### [facility] [address] [place] [address] 17300 News Department Intern: Luis Solis MD POC Glucose Fingerstickon Glucose [Mass/Vol] 143 mg/dL High 65 - 105 mg/dL [facility] [employer] Interpretation and review of laboratory results Abnormal [facility] Glucose [Mass/Vol] 96 mg/dL 65 - 105 mg/dL [facility] [employer] Glucose [Mass/Vol] 114 mg/dL High 65 - 105 mg/dL [facility] Interpretation and review of laboratory results Abnormal [facility] [employer] Glucose [Mass/Vol] 111 mg/dL High 65 - 105 mg/dL [facility] [employer] Interpretation and review of laboratory results Abnormal [facility] [employer] Type + Screenon 12-09-2022 Type + Screen Sample Expiration 12/10/2022,2359 Arm Band Number [id number] ABO/Rh(D) O NEGATIVE Antibody Screen NEGATIVE Unit Number [id number] Blood Component Type Leukocyte Reduced Red Cell Unit Division 00 Status of Unit TRANSFUSED Transfusion Status OK TO TRANSFUSE Crossmatch Result COMPATIBLE Unit Number [id number] Blood Component Type Leukocyte Reduced Red Cell Unit Division 00 Status of Unit TRANSFUSED Transfusion Status OK TO TRANSFUSE Crossmatch Result COMPATIBLE Unit Number [id number] Blood Component Type Leukocyte Reduced Red Cell Unit Division 00 Status of Unit TRANSFUSED Transfusion Status OK TO TRANSFUSE Crossmatch Result COMPATIBLE Normal [facility] Comment on above: Performed By: #### R EJEC, BMPX #### [facility] [employer] [address] [place] [address] 94711 News Department Intern: Luis Solis MD Basic Metab w/rfx MGon 12-08 Anion gap [Moles/Vol] 9 mmol/L Normal 9-17 [facility] Comment on above: Performed By: #### R EJEC, BMPX #### [facility] [address] [place] [address] 21153 News Department Intern: Luis Solis MD Calcium [Mass/Vol] 8.6 mg/dL Normal 8.6-10.4 [facility] Comment on above: Performed By: #### R EJEC, BMPX #### [facility] [address] [place] [address] 85132 News Department Intern: Luis Solis MD Chloride [Moles/Vol] 106 mmol/L Normal 98-107 [facility] Comment on above: Performed By: #### R EJEC, BMPX #### [facility] [address] [place] [address] 99545 News Department Intern: Luis Solis MD CO2 [Moles/Vol] 24 mmol/L Normal 20-31 [facility] Comment on above: Performed By: #### R EJEC, BMPX #### [facility] [address] [place] [address] 73507 News Department Intern: Luis Solis MD Creatinine [Mass/Vol] 1.33 mg/dL High 0.50-0.90 [facility] Comment on above: Performed By: #### Jeff DALE BMPX #### [address] [address] News Department Intern: Luis Solis MD GFR/1.73 sq M.predicted among non-blacks MDRD (S/P/Bld) [Vol rate/Area] 41 mL/min/{1.73_m2} Low >60 [facility] Comment on above: Result Comment: Effective [...] Performed By: #### Jeff DALE BMPX #### [facility] [employer] [address] [place] [address] 66019 News Department Intern: Luis Solis MD Glucose [Mass/Vol] 160 mg/dL High 70-99 [facility] Comment on above: Performed By: #### Jeff DALE BMPX #### [facility] [employer] [address] [place] [address] 44863 News Department Intern: Luis Solis MD Potassium [Moles/Vol] 4.4 mmol/L Normal 3.7-5.3 [facility] Comment on above: Performed By: #### Jeff DALE BMPX #### [facility] [employer] [address] [place] [address] 02707 News Department Intern: Luis Solis MD Sodium [Moles/Vol] 139 mmol/L Normal 135-144 [facility] Comment on above: Performed By: #### R CHITO, BMPX #### [facility] [employer] [address] [place] [address] [phone] News Department Intern: Luis Solis MD Urea nitrogen [Mass/Vol] 21 mg/dL Normal 8-23 [facility] Comment on above: Performed By: #### R CHITO, BMPX #### [facility] [address] [place], [place] [phone] News Department Intern: Luis Solis MD Basic Metabolic Panelon - Anion gap [Moles/Vol] 7 mmol/L Low 9 - 17 mmol/L [employer] Calcium [Mass/Vol] 8.5 mg/dL Low 8.6 - 10. 4 mg/dL [facility] Chloride [Moles/Vol] 110 mmol/L High 98 - 107 mmol/L [facility] [employer] CO2 [Moles/Vol] 25 mmol/L 20 - 31 mmol/L [facility] Creatinine [Mass/Vol] 1.43 mg/dL High 0.50 - 0.90 mg/dL [employer] GFR/1.73 sq M.predicted MDRD (S/P/Bld) [Vol rate/Area] 38 mL/min/{1.73_m2} Low - PINF [facility] [employer] Comment on above: Effective Aug 17, 2022 [...] 124 mg/dL High 70 - 99 mg/dL [facility] [employer] Interpretation and review of laboratory results Abnormal [facility] Potassium [Moles/Vol] 4.7 mmol/L 3.7 - 5.3 mmol/L [facility] Sodium [Moles/Vol] 142 mmol/L 135 - 144 mmol/L [facility] Urea nitrogen (BldV) [Mass/Vol] 23 mg/dL 8 - 23 mg/dL [facility] Basic Metabolic Panel w/ Ref pierre to [...] [Mass/Vol] 21 mg/dL 8 - 23 mg/dL [facility] Basic Metabolic Profon 12-08 Anion gap [Moles/Vol] 7 mmol/L Low 9-17 [facility] Comment on above: Performed By: #### B MP, CBC #### [facility] [employer] [address] [place], [place] [phone] News Department Intern: Luis Solis MD Calcium [Mass/Vol] 8.5 mg/dL Low 8.6-10.4 [facility] Comment on above: Performed By: #### B MP, CBC #### [facility] [place] [address] News Department Intern: Luis Solis MD Chloride [Moles/Vol] 110 mmol/L High 98-107 [facility] Comment on above: Performed By: #### B MP, CBC #### [facility] [address] [place] [address] 01137 News Department Intern: Luis Solis MD CO2 [Moles/Vol] 25 mmol/L Normal 20-31 [facility] Comment on above: Performed By: #### B MP, CBC #### [facility] [address] [place] [address] 81997 News Department Intern: Luis Solis MD Creatinine [Mass/Vol] 1.43 mg/dL High 0.50-0.90 [facility] Comment on above: Performed By: #### B MP, CBC #### [facility] [address] [place] [address] 97765 News Department Intern: Luis Solis MD GFR/1.73 sq M.predicted among non-blacks MDRD (S/P/Bld) [Vol rate/Area] 38 mL/min/{1.73_m2} Low >60 [facility] Comment on above: Result Comment: Effective [...] Performed By: #### B MP, CBC #### [address] [address] News Department Intern: Luis Solis MD Glucose [Mass/Vol] 124 mg/dL High 70-99 [facility] Comment on above: Performed By: #### B MP, CBC #### [address] [address] News Department Intern: Luis Solis MD Potassium [Moles/Vol] 4.7 mmol/L Normal 3.7-5.3 [facility] Comment on above: Performed By: #### B MP, CBC #### [address] [address] News Department Intern: Luis Solis MD Sodium [Moles/Vol] 142 mmol/L Normal 135-144 [facility] Comment on above: Performed By: #### B MP, CBC #### [facility] [employer] [address] [place] [address] 12225 News Department Intern: Luis Solis MD Urea nitrogen [Mass/Vol] 23 mg/dL Normal 8-23 [facility] Comment on above: Performed By: #### B MP, CBC #### [facility] [employer] [address] [place] [address] 54386 News Department Intern: Luis Solis MD CBCon 12-08-2022 Erythrocyte distribution width (RBC) [Ratio] 17.8 % High 11.8-14.4 [facility] Comment on above: Performed By: #### B MP, CBC #### [facility] [employer] [address] [place] [address] 07812 News Department Intern: Luis Solis MD Hematocrit (Bld) [Volume fraction] 22.0 % Low 36.3-47.1 [facility] Comment on above: Performed By: #### B MP, CBC #### [facility] [employer] [address] [place] [address] 25649 News Department Intern: Luis Solis MD Hemoglobin (Bld) [Mass/Vol] 6.6 g/dL Critically low 11.9-15.1 [facility] Comment on above: Performed By: #### B MP, CBC #### [address] [address] News Department Intern: Luis Solis MD MCH (RBC) [Entitic mass] 27.5 pg Normal 25.2-33.5 [facility] Comment on above: Performed By: #### B MP, CBC #### [address] [address] News Department Intern: Luis Solis MD MCHC (RBC) [Mass/Vol] 30.0 g/dL Normal 28.4-34.8 [facility] Comment on above: Performed By: #### B MP, CBC #### [address] [address] News Department Intern: Luis Solis MD MCV (RBC) [Entitic vol] 91.7 fL Normal 82.6-102.9 [facility] Comment on above: Performed By: #### B MP, CBC #### [address] [address] News Department Intern: Luis Solis MD NRBC Automated 0.0 per 100 WBC Normal 0.0 [facility] Comment on above: Performed By: #### B MP, CBC #### [address] [address] News Department Intern: Luis oSlis MD Platelet mean volume (Bld) [Entitic vol] 10.3 fL Normal 8.1-13.5 [facility] Comment on above: Performed By: #### B MP, CBC #### [address] [address] News Department Intern: Luis Solis MD Platelets (Bld) [#/Vol] 250 10*3/uL Normal 138-453 [facility] Comment on above: Performed By: #### B MP, CBC #### [address] [phone] News Department Intern: Luis Solis MD RBC (Bld) [#/Vol] 2.40 10*6/uL Low 3.95-5.11 [facility] Comment on above: Performed By: #### B MP, CBC #### [facility] [address] [place], [place] [phone] News Department Intern: Luis Solis MD WBC (Bld) [#/Vol] 9.2 10*3/uL Normal 3.5-11.3 [facility] Comment on above: Performed By: #### B MP, CBC #### [facility] [address] [place] [address] News Department Intern: Luis Solis MD Hematocrit (Bld) [Volume fraction] [...] [facility]ICAL CENTER WBC (Bld) [#/Vol] 9.2 10*3/uL [facility] Hemoglobin and Hematocriton 12-08-2022 Hematocrit (Bld) [Volume fraction] 24.4 % Low 36.3 - 47.1 % [facility] Hemoglobin (Bld) [Mass/Vol] 7.4 g/dL Low 11.9 - 15.1 g/dL [facility] Interpretation and review of laboratory results Abnormal [facility] Hematocrit (Bld) [Volume fraction] 24.6 % Low 36.3 - 47.1 % [facility] Hemoglobin (Bld) [Mass/Vol] 7.7 g/dL Low 11.9 - 15.1 g/dL [facility] Interpretation and review of laboratory results Abnormal [facility] Hematocrit (Bld) [Volume fraction] 22.9 % Low 36.3 - 47.1 % [facility] Hemoglobin (Bld) [Mass/Vol] 7.6 g/dL Low 11.9 - 15.1 g/dL [facility] Interpretation and review of laboratory results Abnormal [facility] Hematocrit (Bld) [Volume fraction] 21.9 % Low 36.3 - 47.1 % [facility] Hemoglobin (Bld) [Mass/Vol] 6.5 g/dL Critically low 11.9 - 15.1 g/dL [facility] Interpretation and review of laboratory results Abnormal [facility] Hgb/Hcton 12-08-2022 Hematocrit (Bld) [Volume fraction] 24.4 % Low 36.3-47.1 [facility] Comment on above: Performed By: #### R CHITO BMPX #### [employer] [address] [place] [address] 43608 News Department Intern: Luis Solis MD Hemoglobin (Bld) [Mass/Vol] 7.4 g/dL Low 11.9-15.1 [facility] Comment on above: Performed By: #### R CHITO BMPX #### [employer] [address] [place] [address] 01264 News Department Intern: Luis Solis MD Hematocrit (Bld) [Volume fraction] 24.6 % Low 36.3-47.1 [facility] Comment on above: Performed By: #### R EJEC, BMPX #### [facility] [address] [place] [address] 73492 News Department Intern: Luis Solis MD Hemoglobin (Bld) [Mass/Vol] 7.7 g/dL Low 11.9-15.1 [facility] Comment on above: Performed By: #### R EJEC, BMPX #### [facility] [employer] [address] [place] [address] 96143 News Department Intern: Luis Solis MD Hematocrit (Bld) [Volume fraction] 22.9 % Low 36.3-47.1 [facility] Comment on above: Performed By: #### R EJEC, BMPX #### [facility] [employer] [address] [place] [address] 81185 News Department Intern: Luis Solis MD Hemoglobin (Bld) [Mass/Vol] 7.6 g/dL Low 11.9-15.1 [facility] Comment on above: Performed By: #### R EJEC, BMPX #### [facility] [employer] [address] [place] [address] 46543 News Department Intern: Luis Solis MD Hematocrit (Bld) [Volume fraction] 21.9 % Low 36.3-47.1 [facility] Comment on above: Performed By: #### H H #### [facility] [employer] [address] [place] [address] 48657 News Department Intern: Luis Solis MD Hemoglobin (Bld) [Mass/Vol] 6.5 g/dL Critically low 11.9-15.1 [facility] Comment on above: Performed By: #### H H #### [facility] [employer] [address] [place] [address] [phone] News Department Intern: Luis Solis MD Hematocrit (Bld) [Volume fraction] 23.7 % Low 36.3-47.1 [facility] Comment on above: Performed By: #### R EJEC, BMPX #### [employer] [address] [place], [place] [phone] News Department Intern: Luis Solis MD Hemoglobin (Bld) [Mass/Vol] 7.6 g/dL Low 11.9-15.1 [facility] Comment on above: Performed By: #### R EJEC, BMPX #### [employer] [address] [place] [address] [phone] News Department Intern: Luis Solis MD POC Glucose Fingerstickon Glucose [Mass/Vol] 129 mg/dL High 65 - 105 mg/dL [facility] Interpretation and review of laboratory results Abnormal [facility] Glucose [Mass/Vol] 138 mg/dL High 65 - 105 mg/dL [facility] Interpretation and review of laboratory results Abnormal [facility] Glucose [Mass/Vol] 164 mg/dL High 65 - 105 mg/dL [facility] Interpretation and review of laboratory results Abnormal [facility] SPECIMEN REJECTIONon 023 Ordered Test HH [facility] Reason for Rejection Unable to perform testing: Specimen clotted. [facility] Specimen source Nom (Unsp spec) .BLOOD [facility] Specimen Rejectionon 023 Reason for rejection Unable to perform testing: Specimen clotted. Normal [facility] Comment on above: Performed By: #### R EJEC, BMPX #### [employer] [address] [place] [address] [phone] News Department Intern: Luis Solis MD Source of sample .BLOOD Normal [facility] Comment on above: Performed By: #### R EJEC, BMPX #### [employer] [address] [place] [address] News Department Intern: Luis Solis MD Test ordered HH Normal [facility] Comment on above: Performed By: #### R CHITO, WILSONX #### [employer] [address] [place] [address] News Department Intern: Luis Solis MD Activated clotting timeon Activated Clotting Time 262 High [facility] Interpretation and review of laboratory results Abnormal [facility] CHLORIDE (POC)on 12-07-2022 Chloride [Moles/Vol] 107 mmol/L 98 - 107 mmol/L [facility] Catheterization and angiogra phy procedure details panelon 12-07-2022 [facility] [employer] Work Phone: Creatinine W/GFR Point of Ca reon 12-07-2022 Creatinine [Mass/Vol] 1.35 mg/dL High 0.51 - 1.19 mg/dL [facility] [employer] eGFR, POC 41 mL/min/1.73m 2 [facility] [...] 23.7 % Low 36.3 - 47.1 % [facility] [employer] Hemoglobin (Bld) [Mass/Vol] 7.6 g/dL Low 11.9 - 15.1 g/dL [facility] Interpretation and review of laboratory results Abnormal [facility] Hematocrit (Bld) [Volume fraction] 24.9 % Low 36.3 - 47.1 % [facility] Hemoglobin (Bld) [Mass/Vol] 7.2 g/dL Low 11.9 - 15.1 g/dL [facility] Interpretation and review of laboratory results Abnormal [facility] Hemoglobin and hematocrit, b loodon 12-07-2022 Hematocrit (Bld) [Volume fraction] 20 % Low 36 - 46 % [facility] Hemoglobin (Bld) [Mass/Vol] 6.9 g/dL Critically low 12.0 - 16.0 g/dL [facility] Interpretation and review of laboratory results Abnormal [facility] Hematocrit (Bld) [Volume fraction] 30 % Low 36 - 46 % [facility] Hemoglobin (Bld) [Mass/Vol] 10.1 g/dL Low 12.0 - 16.0 g/dL [facility] Hgb/Hcton 12-07-2022 Hematocrit (Bld) [Volume fraction] 24.9 % Low 36.3-47.1 [facility] Comment on above: Performed By: #### R ZAINABEC, BMPX #### [employer] [address] [place] [address] News Department Intern: Luis Solis MD Hemoglobin (Bld) [Mass/Vol] 7.2 g/dL Low 11.9-15.1 [facility] Comment on above: Performed By: #### R EJEC, BMPX #### [employer] [address] [place] [address] News Department Intern: Luis Solis MD No Panel Informationon 12-07 Interpretation and review of laboratory results Abnormal [facility] POC Glucose Fingerstickon Glucose [Mass/Vol] 197 mg/dL High 65 - 105 mg/dL [facility] Interpretation and review of laboratory results Abnormal [facility] Glucose [Mass/Vol] 101 mg/dL 65 - 105 mg/dL [facility] POCT Glucoseon 12-07-2022 Glucose [Mass/Vol] [...] RIGHTon 12-07-2022 Darnell Monique MD - 12/07/2022 [facility] Vascular Lower Extremities Arterial Duplex Procedure Patient Name CHRISTA Date of Study 12/07/2022 [facility] Date of 1945 Gender Female Age 77 year(s) Race Room Number 0501 Height: 65 inch, 165.1 cm Corporate ID # [id number] Weight: 208 pounds, 94.3 kg Patient BSA: 2.01 m^2 BMI: 34.61 kg/m^2 MR # [id number] [employer] RVT Interpreting Physician Darnell Monique [...] ! ! +---------++-----+----- +------+----+------++-- -+-----+------+----+--- ------ + [employer] Phone: Radiology Study observation (narrative) [employer] Phone: VL DUP LOWER EXTREMITY ARTER IES RIGHTOrdered By: Darnell Burk on 12-07-2022 [employer] Phone: CHLORIDE (POC)on 11-24-2022 Chloride [Moles/Vol] 105 mmol/L 98 - 107 mmol/L [employer] Creatinine W/GFR Point of Ca reon 11-24-2022 [...] Interpretation and review of laboratory results Abnormal [facility] POCT Glucoseon 11-24-2022 Glucose [Mass/Vol] 135 mg/dL High 74 - 100 mg/dL [facility] POCT urea (BUN)on 11-24-2022 POC BUN Result not available. 8 - 26 mg/dL B ON [facility] POTASSIUM (POC)on 11-24-2022 Potassium [Moles/Vol] 5.3 mmol/L High 3.5 - 4.5 mmol/L [facility] Platelet Counton 11-24-2022 Platelets (Bld) [#/Vol] 314 10*3/uL Normal 138-453 [facility] Comment on above: Performed By: #### P LT #### [employer] [facility] [place] [address] News Department Intern: Luis Solis MD Platelets (Bld) [#/Vol] 314 10*3/uL [facility] SODIUM (POC)on 11-24-2022 Sodium [Moles/Vol] 142 mmol/L 138 - 146 mmol/L [facility] Cult,Bloodon 10-03-2022 Cult,Blood Specimen Description .BLOOD Special Requests L AC 10ML Culture NO GROWTH 5 DAYS Report Status FINAL 10/03/2022 Normal [facility] Comment on above: Performed By: #### B C #### [address] [address] News Department Intern: Luis Solis MD Cult,Blood Specimen Description .BLOOD Special Requests R AC 10ML Culture NO GROWTH 5 DAYS Report Status FINAL 10/03/2022 Normal [facility] Comment on above: Performed By: #### H H, BMPX #### [address] [address] News Department Intern: Luis Solis MD Basic Metab w/rfx MGon 09-30 Anion gap [Moles/Vol] 9 mmol/L Normal -17 [facility] Comment on above: Performed By: #### H H, BMPX #### [address] [address] News Department Intern: Luis Solis MD Calcium [Mass/Vol] 8.8 mg/dL Normal 8.6-10.4 [facility] Comment on above: Performed By: #### H H, BMPX #### [address] [address] News Department Intern: Luis Solis MD Chloride [Moles/Vol] 102 mmol/L Normal 98-107 [facility] Comment on above: Performed By: #### H H, BMPX #### [address] [address] News Department Intern: Luis Solis MD CO2 [Moles/Vol] 28 mmol/L Normal 20-31 [facility] Comment on above: Performed By: #### H H, BMPX #### [address] [address] News Department Intern: Luis Solis MD Creatinine [Mass/Vol] 1.28 mg/dL High 0.50-0.90 [facility] Comment on above: Performed By: #### H H, BMPX #### [facility] [address] [place] [address] News Department Intern: Luis Solis MD GFR/1.73 sq M.predicted among non-blacks MDRD (S/P/Bld) [Vol rate/Area] 43 mL/min/{1.73_m2} Low >60 [facility] Comment on above: Result Comment: Effective [...] Performed By: #### H H, BMPX #### [facility] [address] [place] [address] News Department Intern: Luis Solis MD Glucose [Mass/Vol] 141 mg/dL High 70-99 [facility] Comment on above: Performed By: #### H H, BMPX #### [facility] [address] [place] [address] News Department Intern: Luis Solis MD Potassium [Moles/Vol] 4.0 mmol/L Normal 3.7-5.3 [facility] Comment on above: Performed By: #### H H, BMPX #### [facility] [address] [place] [address] News Department Intern: Luis Solis MD Sodium [Moles/Vol] 139 mmol/L Normal 135-144 [facility] Comment on above: Performed By: #### H H, BMPX #### [facility] [address] [place] [address] News Department Intern: Luis Solis MD Urea nitrogen [Mass/Vol] 18 mg/dL Normal 8-23 [facility] Comment on above: Performed By: #### H H BMPX #### [facility] [address] [place] [address] [phone] News Department Intern: Luis Solis MD Cult,Urineon 09-30-2022 Cult,Urine Specimen Description .URINE,STRAIGHT CATHETER Culture ESCHERICHIA COLI >812903 CFU/ML AEROCOCCUS URINAE 50 to 100,000 CFU/ML [...] Trimethoprim/Sulfa <=20 SUSCEPTIBLE Piperacillin/Tazobactam <=4 SUSCEPTIBLE Susceptible [facility] Comment on above: Performed By: #### H H BMPX #### [facility] [address] [place] [address] [phone] News Department Intern: Luis Solis MD APTTon 09-29-2022 aPTT Coag (Bld) [Time] 30.4 s Normal 20.5-30.5 [facility] Comment on above: Result Comment: IV Heparin Therapy Range: 48.6-77.8 Performed By: #### H H, BMPX #### [facility] [address] [place] [address] [phone] News Department Intern: Luis Solis MD Procalcitoninon 09-29-2022 Procalcitonin 0.23 ng/mL High <0.09 [facility] Comment on above: Result Comment: Suspected [...] entered into the Change in Procalcitonin Calculator ([email or web address]) to determine the patient's Mortality Risk Prognosis In healthy neonates, plasma Procalcitonin (PCT) concentrations increase gradually after , reaching peak values at about 24 hours of age then decrease to normal values below 0.5 ng/mL by 48-72 hours of age. Performed By: #### R EJEC, BMPX #### [facility] [address] [place] [address] News Department Intern: Luis Solis MD APTTon 09-28-2022 aPTT Coag (Bld) [Time] 110.7 s Critically high 20.5-30.5 [facility] Comment on above: Result Comment: IV Heparin Therapy Range: 48.6-77.8 Performed By: #### P TT #### [facility] [address] [place], [place] [phone] News Department Intern: Luis Solis MD aPTT Coag (Bld) [Time] 24.1 s Normal 20.5-30.5 [facility] Comment on above: Result Comment: IV Heparin Therapy Range: 48.6-77.8 Performed By: #### H H, BMPX #### [facility] [address] [place], [place] [phone] News Department Intern: Luis Solis MD aPTT Coag (Bld) [Time] 22.6 s Normal 20.5-30.5 [facility] Comment on above: Result Comment: IV Heparin Therapy Range: 48.6-77.8 Performed By: #### H H, BMPX #### [facility] [address] [place] [address] News Department Intern: Luis Solis MD Basic Metab w/rfx MGon 09-28 Anion gap [Moles/Vol] 10 mmol/L Normal 9-17 [facility] Comment on above: Performed By: #### R CHITO, BMPX #### [facility] [address] [place] [address] 7[address] News Department Intern: Luis Solis MD Calcium [Mass/Vol] 7.6 mg/dL Low 8.6-10.4 [facility] Comment on above: Performed By: #### R EJJESE, BMPX #### [facility] [address] [place] [address] 08123 News Department Intern: Luis Solis MD Chloride [Moles/Vol] 107 mmol/L Normal 98-107 [facility] Comment on above: Performed By: #### R EJEC, BMPX #### [facility] [address] [place] [address] News Department Intern: Luis Solis MD CO2 [Moles/Vol] 23 mmol/L Normal 20-31 [facility] Comment on above: Performed By: #### R EJEC, BMPX #### [facility] [address] [place] [address] News Department Intern: Luis Solis MD Creatinine [Mass/Vol] 1.33 mg/dL High 0.50-0.90 [facility] Comment on above: Performed By: #### R EJEC, BMPX #### [facility] [address] [place] [address] News Department Intern: Luis Solis MD GFR/1.73 sq M.predicted among non-blacks MDRD (S/P/Bld) [Vol rate/Area] 41 mL/min/{1.73_m2} Low >60 [facility] Comment on above: Result Comment: Effective [...] Performed By: #### Jeff DALE BMPX #### [facility] [address] [place] [address] News Department Intern: Luis Solis MD Glucose [Mass/Vol] 243 mg/dL High 70-99 [facility] Comment on above: Performed By: #### Jeff DALE BMPX #### [facility] [address] [place] [address] News Department Intern: Luis Solis MD Potassium [Moles/Vol] 4.5 mmol/L Normal 3.7-5.3 [facility] Comment on above: Performed By: #### Jeff DALE BMPX #### [facility] [address] [place] [address] News Department Intern: Luis Solis MD Sodium [Moles/Vol] 140 mmol/L Normal 135-144 [facility] Comment on above: Performed By: #### R CHITO BMPX #### [facility] [address] [place] [address] 07[address] News Department Intern: Luis Solis MD Urea nitrogen [Mass/Vol] 21 mg/dL Normal 8-23 [facility] Comment on above: Performed By: #### R CHITO, BMPX #### [facility] [address] [place] [address]879 News Department Intern: Luis Solis MD Brain Natri. Peptideon 09-28 Natriuretic peptide B (Bld) [Mass/Vol] 5275 pg/mL High <300 [facility] Comment on above: Result Comment: An age-independent cutoff point of 300 pg/ml has a 98% negative predictive value excluding acute heart failure. Performed By: #### H H, BMPX #### [facility] [address] [place] [address] News Department Intern: Luis Solis MD C-Reactive Proteinon 022 CRP [Mass/Vol] 48.0 mg/L High 0.0-5.0 [facility] Comment on above: Performed By: #### R CHITO, BMPX #### [facility] [address] [place] [address] 38665 News Department Intern: Luis Solis MD CBC with Diffon 09-28-2022 Abs. Basophil 0.06 k/uL Normal 0.00-0.20 [facility] Comment on above: Performed By: #### H H, BMPX #### [address] [address] News Department Intern: Luis Solis MD Abs.Imm.Granulocyte 0.16 k/uL Normal 0.00-0.30 [facility] Comment on above: Performed By: #### H H, BMPX #### [facility] [address] [place] [address] News Department Intern: Luis Solis MD Abs.Neutrophil (Seg) 10.78 k/uL High 1.50-8.10 [facility] Comment on above: Performed By: #### H H, BMPX #### [facility] [address] [place] [address]36 News Department Intern: Luis Solis MD Basophils/100 WBC (Bld) 1 % Normal 0-2 [facility] Comment on above: Performed By: #### H H, BMPX #### [address] [address] News Department Intern: Luis Solis MD Eosinophils (Bld) [#/Vol] 0.20 10*3/uL Normal 0.00-0.44 [facility] Comment on above: Performed By: #### H H, BMPX #### [facility] [address] [place] [address] News Department Intern: Luis Solis MD Eosinophils/100 WBC (Bld) 2 % Normal 1-4 [facility] Comment on above: Performed By: #### H H, BMPX #### [facility] [address] [place] [address] News Department Intern: Luis Solis MD Erythrocyte distribution width (RBC) [Ratio] 16.7 % High 11.8-14.4 [facility] Comment on above: Performed By: #### H H, BMPX #### [address] [address] News Department Intern: Luis Solis MD Hematocrit (Bld) [Volume fraction] 27.2 % Low 36.3-47.1 [facility] Comment on above: Performed By: #### H H, BMPX #### [address] [address] News Department Intern: Luis Solis MD Hemoglobin (Bld) [Mass/Vol] 8.1 g/dL Low 11.9-15.1 [facility] Comment on above: Performed By: #### H H, BMPX #### [facility] [address] [place] [address] News Department Intern: Luis Solis MD Immature granulocytes/100 WBC (Bld) 1 % High 0 [facility] Comment on above: Performed By: #### H H, BMPX #### [facility] [address] [place] [address] News Department Intern: Luis Solis MD Lymphocytes (Bld) [#/Vol] 0.74 10*3/uL Low 1.10-3.70 [facility] Comment on above: Performed By: #### H H, BMPX #### [address] [address] News Department Intern: Luis Solis MD Lymphocytes/100 WBC (Bld) 6 % Low 24-43 [facility] Comment on above: Performed By: #### H H, BMPX #### [place] [address] News Department Intern: Luis Solis MD MCH (RBC) [Entitic mass] 26.9 pg Normal 25.2-33.5 [facility] Comment on above: Performed By: #### H H, BMPX #### [place] [address] News Department Intern: Luis Solis MD MCHC (RBC) [Mass/Vol] 29.8 g/dL Normal 28.4-34.8 [facility] Comment on above: Performed By: #### H H, BMPX #### [address] [address] News Department Intern: Luis Solis MD MCV (RBC) [Entitic vol] 90.4 fL Normal 82.6-102.9 [facility] Comment on above: Performed By: #### H H, BMPX #### [address] [address] News Department Intern: Luis Solis MD Monocytes (Bld) [#/Vol] 0.78 10*3/uL Normal 0.10-1.20 [facility] Comment on above: Performed By: #### H H, BMPX #### [place] [address] News Department Intern: Luis Solis MD Monocytes/100 WBC (Bld) 6 % Normal 3-12 [facility] Comment on above: Performed By: #### H H, BMPX #### [address] [address] News Department Intern: Luis Solis MD Neutrophil (Seg) 84 % High 36-65 [facility] Comment on above: Performed By: #### H H, BMPX #### [address] [address] News Department Intern: Luis Solis MD NRBC Automated 0.2 per 100 WBC High 0.0 [facility] Comment on above: Performed By: #### H H, BMPX #### [address] [address] News Department Intern: Luis Solis MD Platelet mean volume (Bld) [Entitic vol] 9.9 fL Normal 8.1-13.5 [facility] Comment on above: Performed By: #### H H, BMPX #### [address] [address] News Department Intern: Luis Solis MD Platelets (Bld) [#/Vol] 391 10*3/uL Normal 138-453 [facility] Comment on above: Performed By: #### H H, BMPX #### [address] [address] News Department Intern: Luis Solis MD RBC (Bld) [#/Vol] 3.01 10*6/uL Low 3.95-5.11 [facility] Comment on above: Performed By: #### H H, BMPX #### [address] [address] News Department Intern: Luis Solis MD RBC morphology finding Nom (Bld) ANISOCYTOSIS PRESENT Normal [facility] Comment on above: Performed By: #### H H, BMPX #### [employer] [address] [place] [address] News Department Intern: Luis Solis MD WBC (Bld) [#/Vol] 12.7 10*3/uL High 3.5-11.3 [facility] Comment on above: Performed By: #### H H, BMPX #### [facility] [address] [place] [address] News Department Intern: Luis Solis MD CT CHEST PULMONARY EMBOLISM [...] PROVIDED HISTORY: tachlucy hypoxia TECHNOLOGIST PROVIDED HISTORY: Tachlucy hypoxia Decision [...] Matthew Chong MD 09/28/22 Final result Normal [facility] Comp Metabolic Profon 2021 Albumin [Mass/Vol] 3.5 g/dL Normal 3.5-5.2 [facility] Comment on above: Performed By: #### H H, BMPX #### [facility] [address] [place] [address] News Department Intern: Luis Solis MD Albumin/Glob Ratio 0.9 Low 1.0-2.5 [facility] Comment on above: Performed By: #### H H, BMPX #### [facility] [address] [place] [address] News Department Intern: Luis Solis MD Alkaline Phos 104 U/L Normal 35-104 [facility] Comment on above: Performed By: #### H H, BMPX #### [facility] [place], [place] [phone] News Department Intern: Luis Solis MD ALT [Catalytic activity/Vol] 7 U/L Normal 5-33 [facility] Comment on above: Performed By: #### H H, BMPX #### [address] [address] News Department Intern: Luis Solis MD Anion gap [Moles/Vol] 13 mmol/L Normal 9-17 [facility] Comment on above: Performed By: #### H H, BMPX #### [address] [address] News Department Intern: Luis Solis MD AST [Catalytic activity/Vol] 15 U/L Normal <32 [facility] Comment on above: Performed By: #### H H, BMPX #### [address] [address] News Department Intern: Luis Solis MD Bilirubin [Mass/Vol] 0.5 mg/dL Normal 0.3-1.2 [facility] Comment on above: Performed By: #### H H, BMPX #### [address] [address] News Department Intern: Luis Solis MD Calcium [Mass/Vol] 8.5 mg/dL Low 8.6-10.4 [facility] Comment on above: Performed By: #### H H, BMPX #### [address] [address] News Department Intern: Luis Solis MD Chloride [Moles/Vol] 102 mmol/L Normal 98-107 [facility] Comment on above: Performed By: #### H H, BMPX #### [address] [address] News Department Intern: Luis Solis MD CO2 [Moles/Vol] 24 mmol/L Normal 20-31 [facility] Comment on above: Performed By: #### H H, BMPX #### [facility] [address] [place] [address] News Department Intern: Luis Solis MD Creatinine [Mass/Vol] 1.62 mg/dL High 0.50-0.90 [facility] Comment on above: Performed By: #### H H, BMPX #### [facility] [address] [place] [address] News Department Intern: Luis Solis MD GFR/1.73 sq M.predicted among non-blacks MDRD (S/P/Bld) [Vol rate/Area] 33 mL/min/{1.73_m2} Low >60 [facility] Comment on above: Result Comment: Effective [...] Performed By: #### H H, BMPX #### [facility] [address] [place] [address] News Department Intern: Luis Solis MD Glucose [Mass/Vol] 272 mg/dL High 70-99 [facility] Comment on above: Performed By: #### H H, BMPX #### [facility] [address] [place] [address] News Department Intern: Luis Solis MD Potassium [Moles/Vol] 4.4 mmol/L Normal 3.7-5.3 [facility] Comment on above: Performed By: #### H H, BMPX #### [facility] [address] [place] [address] News Department Intern: Luis Solis MD Protein [Mass/Vol] 7.3 g/dL Normal 6.4-8.3 [facility] Comment on above: Performed By: #### H H, BMPX #### [facility] [address] [place] [address] News Department Intern: Luis Solis MD Sodium [Moles/Vol] 139 mmol/L Normal 135-144 [facility] Comment on above: Performed By: #### H H, BMPX #### [facility] [address] [place] [address] News Department Intern: Luis Solis MD Urea nitrogen [Mass/Vol] 22 mg/dL Normal 8-23 [facility] Comment on above: Performed By: #### H H, BMPX #### [facility] [address] [place] [address] News Department Intern: Luis Solis MD Lactate, Sepsison 09-28-2022 Lactic Acid,Sep Wbld 0.6 mmol/L Normal 0.5-1.9 [facility] Comment on above: Performed By: #### R EJEC, BMPX #### [facility] [address] [place] [address] News Department Intern: Luis Solis MD Lactic Acid,Sep Wbld 1.5 mmol/L Normal 0.5-1.9 [facility] Comment on above: Performed By: #### H H, BMPX #### [facility] [address] [place] [address] News Department Intern: Luis Solis MD Legionella Ag, Uron 09-28-20 Legionella Ag, Ur Negative Normal NEG [facility] Comment on above: Result Comment: L. p neumophila serogroup 1 antigen not detected. A negative result does not exclude infection with Leginella pnemophila serogroup 1 nor does it rule out other microbial-caused respiratory infections of disease caused by other serogroups of Legionella pneumophila. Performed By: #### H H, BMPX #### [facility] [address] [place] [address] News Department Intern: Luis Solis MD PTon 09-28-2022 INR Coag (PPP) [Relative time] 1.1 {INR} Normal [facility] Comment on above: Result Comment: Therapeutic Range: Moderate Anticoagulant Intensity: INR = 2.0-3.0 High Anticoagulant Intensity: INR = 2.5-3.5 Performed By: #### H H, BMPX #### [facility] [address] [place] [address] [phone] News Department Intern: Luis Solis MD PT Coag (PPP) [Time] 11.8 s Normal 9.1-12.3 [facility] Comment on above: Performed By: #### H H, BMPX #### [facility] [address] [place] [address] [phone] News Department Intern: Luis Solis MD [id number] 09-28-2022 SARS-CoV-2 (COVID-19) RNA SIRI+probe Ql (Unsp spec) Not detected Normal NOTDET [facility] Comment on above: Result Comment: Rapid [...] management decisions. Fact sheet for Healthcare Providers: https://www.fda.gov/media/970902/download Fact sheet for Patients: https://www.fda.gov/media/063959/download Methodology: Isothermal Nucleic Acid Amplification Performed By: #### R EJEC, BMPX #### [facility] [place], [place] [phone] News Department Intern: Luis Solis MD Sedimentation Rateon 022 Sedimentation Rate 61 mm/Hr High 0-30 [facility] Comment on above: Performed By: #### R CHITO, BMPX #### [facility] [address] [place] [address] News Department Intern: Luis Solis MD Strep pneum Ag,CSF/Uron - Strep pneum Ag Negative Normal [facility] Comment on above: Result Comment: Stre p pneumoniae antigen not detected Performed By: #### R CHITO, BMPX #### [facility] [address] [place] [address] News Department Intern: Luis Solis MD Strep pneu Ag Source .URINE Normal [facility] Comment on above: Performed By: #### R CHITO, BMPX #### [facility] [address] [place] [address] News Department Intern: Luis Solis MD Troponinon 09-28-2022 Troponin, High Sens 222 ng/L Critically high 0-14 [facility] Comment on above: Result Comment: High Sensitivity Troponin values cannot be compared with other Troponin methodologies. Patients with high levels of Biotin oral intake (i.e >5mg/day) may have falsely decreased Troponin levels. Samples collected within 8 hours of biotin intake may require additional information for diagnosis. Performed By: #### R CHITO, BMPX #### [facility] [address] [place] [address] News Department Intern: Luis Solis MD Troponin, High Sens 219 ng/L Critically high 0-14 [facility] Comment on above: Result Comment: High Sensitivity Troponin values cannot be compared with other Troponin methodologies. Patients with high levels of Biotin oral intake (i.e >5mg/day) may have falsely decreased Troponin levels. Samples collected within 8 hours of biotin intake may require additional information for diagnosis. Performed By: #### H H, BMPX #### [facility] [address] [place] [address] News Department Intern: Luis Solis MD Type + Screenon 09-28-2022 Type + Screen Sample Expiration 10/01/2022,2359 Arm Band Number [id number] ABO/Rh(D) O NEGATIVE Antibody Screen NEGATIVE Normal [facility] Comment on above: Performed By: #### H H, BMPX #### [address] [address] News Department Intern: Luis Solis MD Urinalysis w/ Microon 2021 Bacteria MANY Abnormal NONE [facility] Comment on above: Performed By: #### H H, BMPX #### [address] [address] News Department Intern: Luis Solis MD Bilirubin, SemiQt,Ur Negative Normal NEG [facility] Comment on above: Performed By: #### H H, BMPX #### [address] [address] News Department Intern: Luis Solis MD Blood, Urine Negative Normal NEG [facility] Comment on above: Performed By: #### H H, BMPX #### [address] [address] News Department Intern: Luis Solis MD Casts 0 TO 2 HYALINE Normal 0-8 [facility] Comment on above: Result Comment: Refe rence range defined for non-centrifuged specimen. Performed By: #### H H, BMPX #### [address] [address] News Department Intern: Luis Solis MD Clarity (U) Cloudy Abnormal CLEAR [facility] Comment on above: Performed By: #### H H, BMPX #### [address] [address] News Department Intern: Luis Solis MD Color (U) Yellow Normal YEL [facility] Comment on above: Performed By: #### H H, BMPX #### [facility] [address] [place] [address] News Department Intern: Luis Solis MD Epithelial cells LM Ql (Urine sed) 5 TO 10 Normal 0-5 [facility] Comment on above: Performed By: #### H H, BMPX #### [facility] [address] [place] [address] News Department Intern: Luis Solis MD Glucose Ql (U) 2+ Abnormal NEG [facility] Comment on above: Performed By: #### H H, BMPX #### [facility] [address] [place] [address] News Department Intern: Luis Solis MD Ketones Ql (U) TRACE Abnormal NEG [facility] Comment on above: Performed By: #### H H, BMPX #### [address] [address] News Department Intern: Luis Solis MD Leukocyte esterase Test strip Ql (U) TRACE Abnormal NEG [facility] Comment on above: Performed By: #### H H, BMPX #### [address] [address] News Department Intern: Luis Solis MD Nitrite,Ur Negative Normal NEG [facility] Comment on above: Performed By: #### H H, BMPX #### [facility] [address] [place] [address] News Department Intern: Luis Solis MD PH,Ur 5.5 Normal 5.0-8.0 [facility] Comment on above: Performed By: #### H H, BMPX #### [facility] [address] [place] [address] News Department Intern: Luis Solis MD Protein Ql (U) TRACE Abnormal NEG [facility] Comment on above: Performed By: #### H H, BMPX #### [facility] [place] [address] News Department Intern: Luis Solis MD Spec. [place],Ur 1.018 Normal 1.005-1.030 [facility] Comment on above: Performed By: #### H H, BMPX #### [facility] [address] [place] [address] News Department Intern: Luis Solis MD Urine RBC's 0 TO 2 Normal 0-4 [facility] Comment on above: Result Comment: Refe rence range defined for non-centrifuged specimen. Performed By: #### H H, BMPX #### [facility] [address] [place] [address] News Department Intern: Luis Solis MD Urine WBC's 10 TO 20 Normal 0-5 [facility] [facility] Comment on above: Performed By: #### H H, BMPX #### [facility] [employer] [address] [place] [id number] News Department Intern: Luis Solis MD Urobilinogen,Ur Normal Normal NORM [facility] Comment on above: Performed By: #### H H, BMPX #### [facility] [employer] [address] [place] [address] News Department Intern: Luis Solis MD XR CHEST PORTABLEon 09-28-20 [...] Garth Herr MD 09/28/22 Final result Normal [facility] CT BRAIN WO CONTRASTon 03-31 CT BRAIN WO CONTRAST [facility] Department of Radiology [address] [place] [id number] ===== Patient Name: CUCA GOODWIN : 1945 Sex: F Age: Race: White Pt. 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 Electronically signed: Mari Chavez. Transcribed by: [email or web address], User Resident: Electronically Signed by: MARI CHAVEZ @ 03/31/2022 03:46 PM Normal [facility] Comment on above: Order Comment: hydro cephalus s/p vp legal affairs shunt CROWN POUNCER SHUNT SERIESon 03-31-2022 CROWN POUNCER SHUNT SERIES [facility] Department of Radiology [address] [place] [id number] ===== Patient Name: CUCA GOODWIN : [...] , Ordering Provider - A NIELS MSN ROTO MIXER OPERATOR , Exam: CROWN POUNCER SHUNT SERIES ===== CROWN POUNCER SHUNT SERIES HISTORY: Shunt evaluation. COMPARISON: 09/17/2020. [...] described. Electronically signed: Lam Chew. Transcribed by: [email or web address], User Resident: Electronically Signed by: LAM CHEW @ 04/03/2022 08:50 AM Normal [facility] Comment on above: Order Comment: , .br E.brEr/o kinking or discontinuity of shunt tubing and do image perpendicularl to valve to check OP , .brr/o kinking or discontinuity of shunt tubing and do image perpendicularl to valve to check OP , , , Ordering Provider - Danielle RAWLS ROTO MIXER OPERATOR , Lipid Profileon 03-26-2021 Cholesterol [Mass/Vol] 117 mg/dL Normal <200 [facility] Comment on above: Result Comment: Cholesterol Guidelines: <200 Desirable 200-240 Borderline >240 Undesirable Performed By: #### L IPR #### [employer] [address] [place] [address] News Department Intern: Luis Solis MD Cholesterol in HDL [Mass/Vol] 39 mg/dL Low >40 [facility] Comment on above: Result Comment: HDL Guidelines: <40 Undesirable 40-59 Borderline >59 Desirable Performed By: #### L IPR #### [employer] [facility] [place], [place] [id number] News Department Intern: Luis Solis MD Cholesterol in LDL [Mass/Vol] 62 mg/dL Normal 0-130 [facility] Comment on above: Result Comment: LDL Guidelines: <100 Desirable 100-129 Near to/above Desirable 130-159 Borderline >159 Undesirable Direct (measured) LDL and calculated LDL are not interchangeable tests. Performed By: #### L IPR #### [id number] [place] [address] News Department Intern: Luis Solis MD Cholesterol.total/C holesterol in HDL [Mass ratio] 3.0 {ratio} Normal <5 [facility] Comment on above: Performed By: #### L IPR #### [address] [place] [address] News Department Intern: Luis Solis MD Triglyceride [Mass/Vol] 79 mg/dL Normal <150 [facility] Comment on above: Result Comment: Triglyceride Guidelines: <150 Desirable 150-199 Borderline 200-499 High >499 Very high Based on AHA Guidelines for fasting triglyceride, August 2012. Performed By: #### L IPR #### [address] [address] News Department Intern: Luis Solis MD Cholesterol,VLDL NOT REPORTED Normal 30 [facility] Comment on above: Performed By: #### L IPR #### [address] [address] News Department Intern: Luis Solis MD Uric Acidon 03-24-2021 Urate [Mass/Vol] 6.8 mg/dL High 2.4-5.7 [facility] Comment on above: Performed By: #### U RI #### [facility] [address] [place] [address] News Department Intern: Giovanny Carpenter MD Uric AcidOrdered By: Lakeshia Henriquez on 03-24-2021 Interpretation and review of laboratory results Abnormal [facility] [employer] Phone: Urate [Mass/Vol] 6.8 mg/dL High 2.4 - 5.7 mg/dL [facility] [employer] Phone: CBC AUTO DIFFon 03-20-2021 BASO # 0.0 103/ul Normal 0.0-0.1 [facility] Comment on above: Performed By: #### C BC #### [facility] [address] [place], [place] [address] Ghulam Amy Basophils/100 WBC (Bld) 0.4 % Normal 0.2-2.0 [facility] Comment on above: Performed By: #### C BC #### [facility] [address] [place] [address] Ghulam Amy EO # 0.4 103/ul Normal 0.0-0.7 [facility] Comment on above: Performed By: #### C BC #### [facility] [address] [place] [address] Ghulam Amy Eosinophils/100 WBC (Bld) 4.3 % Normal 0.9-7.0 [facility] Comment on above: Performed By: #### C BC #### [facility] [address] [place] [address] Ghulam Amy Erythrocyte distribution width (RBC) [Ratio] 15.9 % Critically high 11.0-15.0 [facility] Comment on above: Performed By: #### C BC #### [facility] [address] [place] [address] Ghulam Amy Hematocrit (Bld) [Volume fraction] 28.5 % Critically low 36.0-48.0 [facility] Comment on above: Performed By: #### C BC #### [facility] [address] [place] [address] Ghulam Amy Hemoglobin (Bld) [Mass/Vol] 8.9 g/dL Critically low 12.0-16.0 [facility] Comment on above: Performed By: #### C BC #### [facility] [address] [place] [address] Ghulam Amy IG # 0.04 10e3/ul Critically high 0.00-0.03 [facility] Comment on above: Performed By: #### C BC #### [facility] [address] [place] [address] Ghulam Amy IG % 0.4 % Normal 0.0-0.5 [facility] Comment on above: Performed By: #### C BC #### [facility] [address] [place] [address] Ghulam Amy LYMPH # 2.2 103/ul Normal 1.2-3.8 [facility] Comment on above: Performed By: #### C BC #### [facility] [address] [place], [place] [id number] Ghulam Amy Lymphocytes/100 WBC (Bld) 21.9 % Normal 20.5-60.0 [facility] Comment on above: Performed By: #### C BC #### [facility] [address] [place], [place] [phone] Ghulam Amy MANUAL DIFF REQ NO Normal [facility] Comment on above: Performed By: #### C BC #### [facility] [address] [place], [place] [phone] Ghulam Amy MCH (RBC) [Entitic mass] 27.1 pg Normal 26.7-34.0 [facility] Comment on above: Performed By: #### C BC #### [facility] [address] [place], [place] [phone] Ghulamgabriela Reyes MCHC (RBC) [Mass/Vol] 31.2 g/dL Normal 29.9-35.2 [facility] Comment on above: Performed By: #### C BC #### [facility] [address] [place], [place] [phone] Ghulam Amy MCV (RBC) [Entitic vol] 86.9 fL Normal 81.0-99.0 [facility] Comment on above: Performed By: #### C BC #### [facility] [address] [place], [place] [phone] Ghulam Amy MONO # 1.0 103/ul Critically high 0.3-0.8 [facility] Comment on above: Performed By: #### C BC #### [facility] [address] [place], [place] [phone] Ghulam Amy Monocytes/100 WBC (Bld) 10.1 % Normal 1.7-12.0 [facility] Comment on above: Performed By: #### C BC #### [facility] [address] [place] [address] Ghulam Amy NEUT # 6.2 103/ul Normal 1.4-6.5 [facility] Comment on above: Performed By: #### C BC #### [facility] [address] [place], [place] [address] Ghulam Reyes Neutrophils/100 WBC (Bld) 62.9 % Normal 43.0-75.0 [facility] Comment on above: Performed By: #### C BC #### [facility] [address] [place], [place] [address] Ghulamgabriela Reyes Platelet mean volume (Bld) [Entitic vol] 10.2 fL Normal 9.5-13.5 [facility] Comment on above: Performed By: #### C BC #### [facility] [address] [place], [place] [address] Ghulamgabriela Sotoen PLT 289 103/ul Normal 150-450 [facility] Comment on above: Performed By: #### C BC #### [facility] [address] [place] [address] Ghulam Amy RBC 3.28 106/ul Critically low 4.20-5.40 [facility] Comment on above: Performed By: #### C BC #### [facility] [address] [place] [address] Ghulamgabriela Sotoen WBC 9.9 103/ul Normal 4.0-11.0 [facility] Comment on above: Performed By: #### C BC #### [facility] [address] [place] [address] Ghulam Reyes PROF 14(COMP METB)on 021 Albumin [Mass/Vol] 2.8 g/dL Critically low 3.5-5.0 [facility] Comment on above: Performed By: #### C MP #### [facility] [address] [place] [address] Ghulamgabriela Reyes Albumin/Globulin [Mass ratio] 0.6 {ratio} Normal [facility] Comment on above: Performed By: #### C MP #### [facility] [address] [place], [place] [address] Ghulam Amy ALP [Catalytic activity/Vol] 95 U/L Normal 38-126 [facility] Comment on above: Performed By: #### C MP #### [facility] [address] [place] [phone] Ghulam Amy ALT [Catalytic activity/Vol] 16 U/L Normal 9-52 [facility] Comment on above: Performed By: #### C MP #### [facility] [address] [place] [phone] Ghulam Amy Anion gap [Moles/Vol] 11.6 mmol/L Normal [facility] Comment on above: Performed By: #### C MP #### [facility] [address] [place] [address] Ghulam Amy AST [Catalytic activity/Vol] 13 U/L Critically low 14-36 [facility] Comment on above: Performed By: #### C MP #### [facility] [address] [place] [address] Ghulam Amy Bilirubin [Mass/Vol] 0.4 mg/dL Normal 0.2-1.3 [facility] Comment on above: Performed By: #### C MP #### [facility] [address] [place] [address] Ghulam Amy Calcium [Mass/Vol] 8.9 mg/dL Normal 8.4-10.2 [facility] Comment on above: Performed By: #### C MP #### [facility] [address] [place] [address] Ghulam Amy Chloride [Moles/Vol] 103 mmol/L Normal 98-107 [facility] Comment on above: Performed By: #### C MP #### [facility] [address] [place], [place] [phone] Ghulam Amy CO2 [Moles/Vol] 27.4 mmol/L Normal 22.0-30.0 [facility] [place] [facility] Comment on above: Performed By: #### C MP #### [facility] [address] [place], [place] [phone] Ghulam Amy Creatinine [Mass/Vol] 1.86 mg/dL Critically high 0.52-1.04 [facility] Comment on above: Performed By: #### C MP #### [facility] [address] [place], [place] [phone] Ghulam Amy EGFR-AF INDIAN 32 mL/min/1.73m2 Critically low >=60 [facility] Comment on above: Performed By: #### C MP #### [facility] [address] [place] [phone] Ghulam Amy EGFR-NON AF INDIAN 26 mL/min/1.73m2 Critically low >=60 [facility] Comment on above: Performed By: #### C MP #### [facility] [address] [place] [phone] Ghulam Amy Globulin (S) [Mass/Vol] 4.6 g/dL Normal [facility] Comment on above: Performed By: #### C MP #### [facility] [address] [place] [address] Ghulam Amy Glucose [Mass/Vol] 174 mg/dL Critically high 74-106 [facility] Comment on above: Performed By: #### C MP #### [facility] [address] [place] [address] Ghulam Amy Potassium [Moles/Vol] 4.0 mmol/L Normal 3.4-5.0 [facility] Comment on above: Performed By: #### C MP #### [facility] [address] [place], [place] [phone] Ghulam Amy Protein [Mass/Vol] 7.4 g/dL Normal 6.1-8.2 [facility] Comment on above: Performed By: #### C MP #### [facility] [address] [place], [place] [phone] Ghulam Amy Sodium [Moles/Vol] 138 mmol/L Normal 137-145 [facility] Comment on above: Performed By: #### C MP #### [facility] [address] [place] [phone] Ghulam Amy Urea nitrogen [Mass/Vol] 24.0 mg/dL Critically high 7.0-17.0 [facility] Comment on above: Performed By: #### C MP #### [facility] [address] [place] [phone] Ghulam Amy Urea nitrogen/Creatinine [Mass ratio] 12.9 mg/mg Normal [facility] Comment on above: Performed By: #### C MP #### [facility] [address] [place] [address] Ghulam Amy RESPIRATORY PANEL PLUSon Adenovirus Not detected Normal NOT DETECTED [facility] Comment on above: Performed By: #### R SPLUS #### [facility] [address] [place] [address] Ghulam Amy B. Parapertusis Not detected Normal NOT DETECTED [facility] Comment on above: Performed By: #### R SPLUS #### [facility] [address] [place] [address] Ghulam Amy B. Pertussis Not detected Normal NOT DETECTED [facility] [place] [facility] Comment on above: Performed By: #### R SPLUS #### [facility] [address] [place] [address] Ghulam Amy Chlamydia Pneumoniae Not detected Normal NOT DETECTED [facility] Comment on above: Performed By: #### R SPLUS #### [facility] [address] [place] [address] Ghulam Amy Coronavirus 229E Not detected Normal NOT DETECTED [facility] Comment on above: Performed By: #### R SPLUS #### [facility] [address] [place] [address] Ghulam Amy Coronavirus HKU1 Not detected Normal NOT DETECTED [facility] Comment on above: Performed By: #### R SPLUS #### [facility] [address] [place] [address] Ghulam Amy Coronavirus NL63 Not detected Normal NOT DETECTED [facility] Comment on above: Performed By: #### R SPLUS #### [facility] [address] [place] [address] Ghulam Amy Coronavirus OC43 Not detected Normal NOT DETECTED [facility] Comment on above: Performed By: #### R SPLUS #### [facility] [address] [place] [address] Ghulam Amy Influenza A H1 2009 Not detected Normal NOT DETECTED [facility] Comment on above: Performed By: #### R SPLUS #### [facility] [address] [place] [address] Ghulam Amy Influenza B Not detected Normal NOT DETECTED [facility] Comment on above: Performed By: #### R SPLUS #### [facility] [address] [place] [address] Ghulam Amy Metapneumovirus Not detected Normal NOT DETECTED [facility] Comment on above: Performed By: #### R SPLUS #### [facility] [address] [place] [address] Ghulam Amy Mycoplas. Pneumoniae Not detected Normal NOT DETECTED [facility] Comment on above: Performed By: #### R SPLUS #### [facility] [address] [place] [address] Ghulam Amy Parainfluenza 1 Not detected Normal NOT DETECTED [facility] Comment on above: Performed By: #### R SPLUS #### [facility] [address] [place] [address] Ghulam Amy Parainfluenza 2 Not detected Normal NOT DETECTED [facility] Comment on above: Performed By: #### R SPLUS #### [facility] [address] [place] [address] Ghulam Amy Parainfluenza 3 Not detected Normal NOT DETECTED [facility] Comment on above: Performed By: #### R SPLUS #### [facility] [address] [place] [address] Ghulam Amy Parainfluenza 4 Not detected Normal NOT DETECTED [facility] Comment on above: Performed By: #### R SPLUS #### [facility] [address] [place] [address] Ghulam Amy Rhino/Enterovirus Not detected Normal NOT DETECTED [facility] Comment on above: Performed By: #### R SPLUS #### [facility] [address] [place] [address] Ghulamgabriela Reyes RP2 Header 1 RESPIRATORY PANEL: VIRUSES Normal [facility] Comment on above: Performed By: #### R SPLUS #### [facility] [address] [place] [address] Ghulam Reyes RP2 Header 2 RESPIRATORY PANEL: BACTERIA Normal [facility] Comment on above: Performed By: #### R SPLUS #### [facility] [address] [place] [address] Ghulam Reyes RP2 Header 4 EUA SEE BELOW Normal [facility] [place] [facility] Comment on above: Result Comment: This test is not yet approved or cleared by the [place] FDA. When there are no FDA-approved or cleared tests available, and other criteria are met, FDA can make tests available under an emergency access mechanism called an Emergency Use Authorization (EUA). The EUA for this test is supported by the Land Commissioner of Health and Human Service?s (HHS?s) declaration [...] used). Performed By: #### R SPLUS #### [facility] [address] [place] [address] [facility] RSV Not detected Normal NOT DETECTED [facility] Comment on above: Performed By: #### R SPLUS #### [facility] [address] [place] [address] Ghulam Amy SARS-CoV-2 (COVID-19) RNA SIRI+probe Ql (Unsp spec) Not detected Normal NOT DETECTED [facility] Comment on above: Performed By: #### R SPLUS #### [facility] [address] [place] [address] Ghulam Amy URIC ACID SERUMon 03-20-2021 Urate [Mass/Vol] 7.4 mg/dL Critically high 2.5-6.2 [facility] Comment on above: Performed By: #### U GIRISH #### [facility] [address] [place] [address] Ghulam Amy CBC AUTO DIFFon 03-19-2021 BASO # 0.0 103/ul Normal 0.0-0.1 [facility] Comment on above: Performed By: #### C BC #### [facility] [address] [place] [phone] Ghulam Amy Basophils/100 WBC (Bld) 0.3 % Normal 0.2-2.0 [facility] Comment on above: Performed By: #### C BC #### [facility] [address] [place] [phone] Ghulam Amy EO # 0.1 103/ul Normal 0.0-0.7 [facility] Comment on above: Performed By: #### C BC #### [facility] [address] [place] [phone] Ghulam Amy Eosinophils/100 WBC (Bld) 0.9 % Normal 0.9-7.0 [facility] Comment on above: Performed By: #### C BC #### [facility] [address] [place] [address] Ghulam Amy Erythrocyte distribution width (RBC) [Ratio] 15.5 % Critically high 11.0-15.0 [facility] Comment on above: Performed By: #### C BC #### [facility] [address] [place], [place] [phone] Ghulam Amy Hematocrit (Bld) [Volume fraction] 28.1 % Critically low 36.0-48.0 [facility] Comment on above: Performed By: #### C BC #### [facility] [address] [place], [place] [phone] Ghulam Amy Hemoglobin (Bld) [Mass/Vol] 8.9 g/dL Critically low 12.0-16.0 [facility] Comment on above: Performed By: #### C BC #### [facility] [address] [place] [phone] Ghulam Amy IG # 0.05 10e3/ul Critically high 0.00-0.03 [facility] Comment on above: Performed By: #### C BC #### [facility] [address] [place] [phone] Ghulam Amy IG % 0.5 % Normal 0.0-0.5 [facility] Comment on above: Performed By: #### C BC #### [facility] [address] [place] [phone] Ghulam Amy LYMPH # 1.9 103/ul Normal 1.2-3.8 [facility] Comment on above: Performed By: #### C BC #### [facility] [address] [place], [place] [phone] Ghulam Amy Lymphocytes/100 WBC (Bld) 17.2 % Critically low 20.5-60.0 [facility] Comment on above: Performed By: #### C BC #### [facility] [address] [place], [place] [phone] Ghulam Amy MANUAL DIFF REQ NO Normal [facility] Comment on above: Performed By: #### C BC #### [facility] [address] [place] [address] Ghulam Amy MCH (RBC) [Entitic mass] 27.1 pg Normal 26.7-34.0 [facility] Comment on above: Performed By: #### C BC #### [facility] [address] [place], [place] [phone] Ghulam Amy MCHC (RBC) [Mass/Vol] 31.7 g/dL Normal 29.9-35.2 [facility] Comment on above: Performed By: #### C BC #### [facility] [address] [place], [place] [address] Ghulam Amy MCV (RBC) [Entitic vol] 85.4 fL Normal 81.0-99.0 [facility] Comment on above: Performed By: #### C BC #### [facility] [address] [place], [place] [address] Ghulam Amy MONO # 1.0 103/ul Critically high 0.3-0.8 [facility] Comment on above: Performed By: #### C BC #### [facility] [address] [place], [place] [address] Ghulam Amy Monocytes/100 WBC (Bld) 9.5 % Normal 1.7-12.0 [facility] Comment on above: Performed By: #### C BC #### [facility] [address] [place] [address] Ghulam Reyes NEUT # 7.7 103/ul Critically high 1.4-6.5 [facility] Comment on above: Performed By: #### C BC #### [facility] [address] [place] [phone] Ghulam Reyes Neutrophils/100 WBC (Bld) 71.6 % Normal 43.0-75.0 [facility] Comment on above: Performed By: #### C BC #### [facility] [address] [place] [phone] Ghulam Reyes Platelet mean volume (Bld) [Entitic vol] 10.1 fL Normal 9.5-13.5 [facility] Comment on above: Performed By: #### C BC #### [facility] [address] [place] [address] Ghulam Reyes PLT 285 103/ul Normal 150-450 [facility] Comment on above: Performed By: #### C BC #### [facility] [address] [place] [address] Ghulam Reyes RBC 3.29 106/ul Critically low 4.20-5.40 [facility] Comment on above: Performed By: #### C BC #### [facility] [address] [place] [address] Ghulam Reyes WBC 10.7 103/ul Normal 4.0-11.0 [facility] Comment on above: Performed By: #### C BC #### [facility] [address] [place] [phone] Ghulam Reyes MAGNESIUMon 03-19-2021 Magnesium [Mass/Vol] 1.9 mg/dL Normal 1.6-2.3 [facility] Comment on above: Performed By: #### M G ####[facility] [address] [place] [id number] Reyes POINT OF CARE GLUCOSEon Glucose [Mass/Vol] 68 mg/dL Critically low 74-106 [facility] Comment on above: Performed By: #### P OCGLUC #### [facility] [address] [place] [phone] Ghulam Amy Glucose [Mass/Vol] 91 mg/dL Normal 74-106 [facility] Comment on above: Performed By: #### P OCGLUC #### [facility] [address] [place], [place] [phone] Ghulam Amy Glucose [Mass/Vol] 136 mg/dL Critically high 74-106 [facility] Comment on above: Performed By: #### P OCGLUC #### [facility] [address] [place], [place] [id number] Ghulam Amy PROF 14(COMP METB)on 021 Albumin [Mass/Vol] 2.7 g/dL Critically low 3.5-5.0 Th [facility] Comment on above: Performed By: #### C MP #### [facility] [address] [place], [place] [phone] Ghulam Amy Albumin/Globulin [Mass ratio] 0.6 {ratio} Normal [facility] Comment on above: Performed By: #### C MP #### [facility] [address] [place], [place] [phone] Ghulam Amy ALP [Catalytic activity/Vol] 99 U/L Normal 38-126 [facility] Comment on above: Performed By: #### C MP #### [facility] [address] [place], [place] [phone] Ghulam Amy ALT [Catalytic activity/Vol] 14 U/L Normal 9-52 [facility] Comment on above: Performed By: #### C MP #### [facility] [address] [place], [place] [phone] Ghulam Amy Anion gap [Moles/Vol] 10.5 mmol/L Normal [facility] Comment on above: Performed By: #### C MP #### [facility] [address] [place], [place] [phone] Ghulam Amy AST [Catalytic activity/Vol] 13 U/L Critically low 14-36 [facility] Comment on above: Performed By: #### C MP #### [facility] [address] [place] [address] Ghulam Amy Bilirubin [Mass/Vol] 0.5 mg/dL Normal 0.2-1.3 [facility] Comment on above: Performed By: #### C MP #### [facility] [address] [id number] Ghulam Amy Calcium [Mass/Vol] 9.1 mg/dL Normal 8.4-10.2 [facility] Comment on above: Performed By: #### C MP #### [facility] [address] [address] Ghulam Amy Chloride [Moles/Vol] 104 mmol/L Normal 98-107 [facility] Comment on above: Performed By: #### C MP #### [facility] [address] [address] Ghulam Amy CO2 [Moles/Vol] 27.2 mmol/L Normal 22.0-30.0 [facility] Comment on above: Performed By: #### C MP #### [facility] [address] [address] Ghulam Amy Creatinine [Mass/Vol] 1.57 mg/dL Critically high 0.52-1.04 [facility] Comment on above: Performed By: #### C MP #### [facility] [address] [place], [place] [phone] Ghulam Amy EGFR-AF INDIAN 39 mL/min/1.73m2 Critically low >=60 [facility] Comment on above: Performed By: #### C MP #### [facility] [address] [id number] Ghulam Amy EGFR-NON AF INDIAN 32 mL/min/1.73m2 Critically low >=60 [facility] Comment on above: Performed By: #### C MP #### [facility] [address] [phone] Ghulam Amy Globulin (S) [Mass/Vol] 4.6 g/dL Normal [facility] Comment on above: Performed By: #### C MP #### [facility] [address] [phone] Ghulam Amy Glucose [Mass/Vol] 209 mg/dL Critically high 74-106 [facility] Comment on above: Performed By: #### C MP #### [facility] [address] [place], [place] [address] Ghulam Amy Potassium [Moles/Vol] 3.7 mmol/L Normal 3.4-5.0 [facility] Comment on above: Performed By: #### C MP #### [facility] [address] [place], [place] [address] Ghulam Amy Protein [Mass/Vol] 7.3 g/dL Normal 6.1-8.2 [facility] Comment on above: Performed By: #### C MP #### [facility] [address] [place], [place] [address] Ghulam Amy Sodium [Moles/Vol] 138 mmol/L Normal 137-145 [facility] Comment on above: Performed By: #### C MP #### [facility] [address] [place], [place] [address] Ghulam Amy Urea nitrogen [Mass/Vol] 28.0 mg/dL Critically high 7.0-17.0 [facility] Comment on above: Performed By: #### C MP #### [facility] [address] [place], [place] [address] Ghulam Amy Urea nitrogen/Creatinine [Mass ratio] 17.8 mg/mg Normal [facility] Comment on above: Performed By: #### C MP #### [facility] [address] [place], [place] [address] Ghulam Amy Vital Signs Date Time Vital Sign Value Performing Clinician Facility 02-09-2024 13:00-0400 Body height 165.1 cm Pam RICHEY Work Phone: [facility] 02-09-2024 13:00-0400 Body mass index (BMI) [Ratio] 33.35 kg/m2 Pam RICHEY Work Phone: [facility] 02-09-2024 13:00-0400 Body temperature 98.2 [degF] Pam RICHEY Work Phone: [facility] 02-09-2024 13:00-0400 Body weight 90.9 kg Pam Ley APRN-ROTO MIXER OPERATOR Work Phone: [facility] [employer] [facility] 02-09-2024 13:00-0400 Diastolic blood pressure 72 mm[Hg] Pam Ley APRN-ROTO MIXER OPERATOR Work Phone: [facility] [employer] [facility] 02-09-2024 13:00-0400 Heart rate 79 /min Pam Ley APRN-ROTO MIXER OPERATOR Work Phone: [facility] 02-09-2024 13:00-0400 Respiratory rate 20 /min Pam Ley APRN-ROTO MIXER OPERATOR Work Phone: [facility] 02-09-2024 13:00-0400 SaO2% (BldA) [Mass fraction] 97 % Pam Ley APRN-ROTO MIXER OPERATOR Work Phone: [facility] [employer] [facility] 02-09-2024 13:00-0400 Systolic blood pressure 134 mm[Hg] Pam Ley APRN-ROTO MIXER OPERATOR Work Phone: [facility] 12-15-2023 14:51-0500 Body height 165.1 cm Pam Ley APRN-ROTO MIXER OPERATOR Work Phone: [facility] 12-15-2023 14:51-0500 Body mass index (BMI) [Ratio] 31.02 kg/m2 Pam Ley APRN-ROTO MIXER OPERATOR Work Phone: [facility] 12-15-2023 14:51-0500 Body temperature 98.29 [degF] Pam Ley APRN-ROTO MIXER OPERATOR Work Phone: [facility] 12-15-2023 14:51-0500 Body weight 84.54 kg Pam Ley APRN-ROTO MIXER OPERATOR Work Phone: [facility] 12-15-2023 14:51-0500 Diastolic blood pressure 60 mm[Hg] Pam Ley MANAGER EXPORT-ROTO MIXER OPERATOR Work Phone: [facility] 12-15-2023 14:51-0500 Heart rate 89 /min Pam Ley APRN-ROTO MIXER OPERATOR Work Phone: [facility] 12-15-2023 14:51-0500 SaO2% (BldA) [Mass fraction] 94 % Pam Ley APRN-ROTO MIXER OPERATOR Work Phone: [facility] [employer] [facility] 12-15-2023 14:51-0500 Systolic blood pressure 100 mm[Hg] Pam Ley APRN-ROTO MIXER OPERATOR Work Phone: [facility] 11-25-2023 13:56-0500 Body height 165.1 cm Rambo Muñoz MD Work Phone: [facility] 11-25-2023 13:56-0500 Body mass index (BMI) [Ratio] 31.45 kg/m2 Rambo Muñoz MD Work Phone: [facility] [employer] [facility] 11-25-2023 13:56-0500 Body temperature 99 [degF] Rambo Muñoz MD Work Phone: [facility] [employer] [facility] 11-25-2023 13:56-0500 Body weight 85.73 kg Rambo Muñoz MD Work Phone: [facility] 11-25-2023 13:56-0500 Diastolic blood pressure 57 mm[Hg] Rambo Muñoz MD Work Phone: [facility] [employer] [facility] 11-25-2023 13:56-0500 Heart rate 65 /min Rambo Muoñz MD Work Phone: [facility] 11-25-2023 13:56-0500 Respiratory rate 16 /min Rambo Muñoz MD Work Phone: [facility] [employer] [facility] 11-25-2023 13:56-0500 SaO2% (BldA) [Mass fraction] 91 % Rambo Muñoz MD Work Phone: [facility] [employer] [facility] 11-25-2023 13:56-0500 Systolic blood pressure 141 mm[Hg] Rambo Muñoz MD Work Phone: [facility] 01-13-2023 07:13-0500 Body temperature 98.01 [degF] Luna Daniels MD Work Phone: [employer] 01-13-2023 07:13-0500 Diastolic blood pressure 54 mm[Hg] Luna Daniels MD Work Phone: [facility] [employer] 01-13-2023 07:13-0500 Heart rate 57 /min Luna Daniels MD Work Phone: [facility] [employer] 01-13-2023 07:13-0500 Respiratory rate 18 /min Luna Daniels MD Work Phone: [employer] 01-13-2023 07:13-0500 SaO2% (BldA) [Mass fraction] 98 % Luna Daniels MD Work Phone: [employer] 01-13-2023 07:13-0500 Systolic blood pressure 141 mm[Hg] Luna Daniels MD Work Phone: [employer] 12-11-2022 07:58-0500 Body temperature 98.8 [degF] Luna Daniels MD Work Phone: [employer] 12-11-2022 07:58-0500 Diastolic blood pressure 56 mm[Hg] Luna Daniels MD Work Phone: [employer] 12-11-2022 07:58-0500 Heart rate 85 /min Luna Daniels MD Work Phone: [employer] 12-11-2022 07:58-0500 Respiratory rate 16 /min Luna Daniels MD Work Phone: [employer] 12-11-2022 07:58-0500 SaO2% (BldA) [Mass fraction] 97 % Luna Dnaiels MD Work Phone: [employer] 12-11-2022 07:58-0500 Systolic blood pressure 156 mm[Hg] Luna Daniels MD Work Phone: [employer] 12-07-2022 11:44-0500 Body height 165.1 cm Luna Daniels MD Work Phone: [employer] 12-07-2022 11:44-0500 Body mass index (BMI) [Ratio] 34.61 kg/m2 Luna Daniels MD Work Phone: [employer] 12-07-2022 11:44-0500 Body weight 94.35 kg Luna Daniels MD Work Phone: [employer] 11-24-2022 11:44-0500 Body height 165.1 cm Stv [facility] [employer] 11-24-2022 11:44-0500 Body mass index (BMI) [Ratio] 34.95 kg/m2 St[facility] [employer] 11-24-2022 11:44-0500 Body temperature 98.4 [degF] Stv B [employer] 11-24-2022 11:44-0500 Body weight 95.25 kg Stv B [employer] 11-24-2022 11:44-0500 Diastolic blood pressure 45 mm[Hg] Stv B [employer] 11-24-2022 11:44-0500 Heart rate 60 /min Stv [facility] [employer] 11-24-2022 11:44-0500 Respiratory rate 15 /min St[facility] [employer] 11-24-2022 11:44-0500 SaO2% (BldA) [Mass fraction] 93 % [facility] [employer] 11-24-2022 11:44-0500 Systolic blood pressure 131 mm[Hg] St[facility] [employer] Encounters Encounter Date Encounter Type Care Provider Facility Start: 03-16-2024 End: [facility]: 03-09-[facility]24 End: 03-09-2024 ambulatory RAMBO MUÑOZ [facility] Start: 03-02-2024 End: 03-02-[facility] Start: 02-29-2024 ambulatory [facility] Start: 02-27-2024 End: 02-29-2024 Emergency department patient visit [facility] Start: 02-18-2024 End: 02-19-2024 ambulatory RAMBO MUÑOZ [facility] Start: 02-09-2024 End: 02-10-2024 ambulatory [facility] Start: 02-09-2024 End: 02-09-2024 ambulatory [facility] Start: 02-09-2024 End: 02-09-2024 Office outpatient visit 25 minutes [facility] MANAGER EXPORT-ROTO MIXER OPERATOR [facility] Comment on above: Acute cystitis witho ut hematuria (Primary Dx); Urge incontinence of urine Start: 01-10-2024 End: 01-11-2024 ambulatory [facility] Start: 01-04-2024 Maged Muñoz MD Work Phone: Stephany Carnes [facility] - Medical Oncology Comment on above: 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, unspecified estrogen receptor status ([facility]-HCC) Start: 12-15-2023 End: 12-15-2023 ambulatory [facility] Start: 12-15-2023 End: 12-15-2023 Office outpatient visit 25 minutes Pam Ley MANAGER EXPORT-ROTO MIXER OPERATOR Work Phone: [facility] Comment on above: Upper respiratory tr act infection, unspecified type (Primary Dx); Normal pressure hydrocephalus (CMS-HCC); Moderate episode of recurrent major depressive disorder (CMS-HCC); PVD (peripheral vascular disease) ([facility]-HCC); 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); Stage 3b chronic kidney disease ([facility]-HCC); Major depressive disorder in partial remission, unspecified whether recurrent ([facility]-HCC); Essential hypertension; GERD without esophagitis; 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 ([facility]-HCC) Start: 12-06-2023 Refall haines APRN-ROTO MIXER OPERATOR Work Phone: [facility] Comment on above: Insomnia, unspecifie d type Start: 11-25-2023 End: 11-25-2023 ambulatory RAMBO MUÑOZ [facility] Start: 11-25-2023 End: 11-25-2023 Office outpatient visit 25 minutes Rambo Muñoz MD Work Phone: Stephany Carnes [facility] - [facility] On[facility] Comment on above: 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, unspecified estrogen receptor status ([facility]) (Primary Dx); 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 breast in female, estrogen receptor positive ([facility]-HCC) Start: 03-23-2023 End: 03-24-2023 ambulatory [facility] Start: 01-13-2023 End: 01-16-[facility] Start: 01-13-2023 End: 01-15-2023 Subsequent hospital visit by physician Luna Daniels MD Work Phone: [facility] 3C Observation Comment on above: Arrived Severe aortic valve stenosis (Primary Dx); Type 2 diabetes mellitus with diabetic neuropathy, with long-term current use of insulin ([facility]); Tremors of nervous system; Family history of coronary arteriosclerosis; [place]HEL[place] (obstructive sleep apnea) nonadherent with cpap; Stage 3a chronic kidney disease ([facility]); Coronary artery disease involving nez perce coronary artery of nez perce heart without angina pectoris Aortic valve stenosi s, etiology of cardiac valve disease unspecified Start: 12-07-2022 End: 12-11-2022 ambulatory LUNA DANIELS [facility] Start: 12-07-2022 End: 12-11-2022 Subsequent hospital visit by physician Luna Daniels MD Work Phone: [facility] 5A Stepdown Comment on above: Severe aortic valve stenosis (Primary Dx) Start: 11-24-2022 End: 11-25-2022 ambulatory FLIP JHA [facility] Start: 11-24-2022 End: 11-24-2022 Subsequent hospital visit by physician Kaylin Certified Orthotic Fitter Daryl CRAVEN Certified Orthotic Fitter Comment on above: Canceled (Case zulay lled) Start: 09-28-2022 End: 09-30-2022 Evaluation and management of inpatient CADEN SANCHEZ [facility] Start: 03-31-2022 End: 04-01-2022 ambulatory aVle Bowser Facility:[facility] Start: 03-26-2021 End: 03-27-2021 [facility] Start: 03-24-2021 End: 03-25-2021 ambulatory LAKESHIA HENRIQUEZ [facility] Start: 03-24-2021 End: 03-24-2021 [...] rgnt non-auto w/o micrscp Pam Ley MANAGER EXPORT-ROTO MIXER OPERATOR Work Phone: Start: 02-09-2024 Adult depression scr eening assessment Pam Ley MANAGER EXPORT-ROTO MIXER OPERATOR Work Phone: Start: 12-15-2023 Adult depression scr eening assessment Pam Ley MANAGER EXPORT-ROTO MIXER OPERATOR Work Phone: Start: 08-17-2023 Adult depression scr eening assessment Rambo Muñoz MD Work Phone: Start: 01-13-2023 Brncdilat rspse spmt ry pre&post-brncdilat admn Namrata Blair MANAGER EXPORT - ROTO MIXER OPERATOR Work Phone: Start: 01-13-2023 Ct angiography chest w/contrast/noncontrast Namrata Aguilar Radhareji [facility] Work Phone: Start: 12-11-2022 Glucose blood reagent strip Luna Daniels MD Work Phone: Start: 12-10-2022 Glucose blood reagent strip Luna Daniels MD Work Phone: Start: 12-10-2022 Glucose blood reagent strip Luna Daniels MD Work Phone: Start: 12-10-2022 Glucose blood reagent strip Luna Daniels MD Work Phone: Start: 12-10-2022 Basic metabolic pane l calcium total Rita Estrella Leos [facility] Work Phone: Start: 12-10-2022 Antibody screen Luna morales MD Work Phone: Start: 12-10-2022 End: 12-10-2022 Glucose blood reagent strip Luna Daniels MD Work Phone: Start: 12-09-2022 End: 12-09-2022 Blood count hemoglobin Luna Daniels MD Work Phone: Start: 12-09-2022 Glucose blood reagent strip Luna Daniels MD Work Phone: Start: 12-09-2022 End: 12-09-2022 Transfusion of packed red blood cells Radha Myoa [facility] Work Phone: Start: 12-09-2022 Glucose blood [...] 03-24-2021 Assay of blood/uric acid Lakeshia Henriquez MANAGER EXPORT - ROTO MIXER OPERATOR Work Phone: Plan of Treatment Date Care Activity Detail Author Start: 12-15-2024 Adult BMI Follow Up Plan Adult BMI F ollow Up Plan [facility] Start: 12-15-2024 Adult BMI Screening Adult BMI Screen ing [facility] Start: 12-15-2024 Depression Screening Depression Scre ening [facility] Start: 12-15-2024 Fall Risk Screening Fall Risk Screen ing [facility] Start: 12-15-2024 Tobacco Screening Tobacco Screening [facility] Start: 11-25-2024 Adult BMI Screening Adult BMI Screen ing [facility] Start: 09-28-2024 Tobacco Screening Tobacco Screening [facility] Start: 08-31-2024 Adult BMI Follow Up Plan Adult BMI F ollow Up Plan [facility] Start: 08-17-2024 Depression Screening Depression Scre ening [facility] Start: 08-10-2024 Fall Risk Screening Fall Risk Screen ing [facility] Start: 08-10-2024 Medicare Annual Well ness Visit Medicare Annual Wellness Visit [facility] Start: 03-09-2024 End: 03-09-2024 Patient encounter procedure 03/09/2024 3:15 PM EDT Office Visit [facility] [address] [place] [phone] Rambo Muñoz MD [address] [place] [address] [place], [place] [phone] [facility] Start: 01-13-2024 End: 01-13-2024 Patient encounter procedure 01/13/2024 1:00 PM EST Office Visit [facility] [address] [place] [id number] Pam Ley, MANAGER EXPORT-ROTO MIXER OPERATOR [address] [place] [address] [facility] Start: 09-02-2023 Lipid panel [facility] [employer] Start: 02-02-2023 End: 02-02-2023 Patient encounter procedure 02/02/2023 Appointment IP Unit [facility] Certified Orthotic Fitter Start: 01-18-2023 End: 01-14-2024 Basic metabolic 2000 panel - Serum or Plasma Basic Metabolic Panel Lab STAT Severe aortic valve stenosis Expected: 01/18/2023, Expires: 01/14/2024 [employer] Work Phone: Comment on above: Expected: 01/18/2023 , Expires: 01/14/2024 Start: 12-17-2022 End: 12-10-2023 Basic metabolic 2000 panel - Serum or Plasma Basic Metabolic Panel Lab Routine Severe aortic valve stenosis Expected: 12/17/2022, Expires: 12/10/2023 [facility] [employer] Phone: Comment on above: Expected: 12/17/2022 , Expires: 12/10/2023 Start: 12-17-2022 End: 12-10-2023 Hemoglobin and Hematocrit Hemoglobin and Hematocrit Lab Routine Severe aortic valve stenosis Expected: 12/17/2022, Expires: 12/10/2023 [employer] Phone: Comment on above: Expected: 12/17/2022 , Expires: 12/10/2023 Start: 09-28-2022 Annual Wellness Visi t (AWV) Annual Wellness Visit (AWV) [facility] Start: 07-16-2021 Influenza vaccination Flu vacc ine (Season Ended) [employer] Phone: Start: 04-01-2021 COVID-19 Vaccine (3 - Booster for Pfizer series) COVID-19 Vaccine (3 - Booster for Pfizer series) [facility] [employer] Start: 03-04-2021 COVID-19 Vaccine (3 - Pfizer risk series) COVID-19 Vaccine (3 - Pfizer risk series) [facility] Start: 1996 Shingles vaccine (1 of 2) Cuevas gles vaccine (1 of 2) [facility] [employer] Start: 1965 Administration of varicella zoster vaccine Zoster (Shingles) Vaccine (1 of 2) [facility] Start: 1965 DTaP,Tdap and Td Vac cines (1 - Tdap) DTaP,Tdap and Td Vaccines (1 - Tdap) [facility] Start: 1965 DTaP/Tdap/Td vaccine (1 - Tdap) DTaP/Tdap/Td vaccine (1 - Tdap) [facility] [employer] Start: 1964 Hepatitis C screening Hepatitis C sc reen [employer] Start: 1962 COVID-19 Vaccine (1) COVID-19 Vaccin e (1) [employer] Phone: Start: 1958 Depression Screen Depression Screen [employer] Start: 1946 Creatinine measurement Creatinine mo nitoring [employer] Phone: Start: 1946 Potassium monitoring Potassium monit oring [employer] Phone: End: 02-08-2025 Bacteria identified in Urine by Culture Urine culture (clean catch) Microbiology Routine Acute cystitis without hematuria 1 Occurrences starting 02/09/2024 until 02/08/2025 [employer] Phone: Comment on above: 1 Occurrences starti ng 02/09/2024 until 02/08/2025 End: 12-07-2022 Blood Bank Specimen [employer] Phone: Comment on above: Once for 1 Occurrenc es starting 12/07/2022 until 12/07/2022 End: 11-25-2024 Cancer antigen 15-3 Cancer antigen 15-3 Lab Routine 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 female breast, unspecified estrogen receptor status (CMS-HCC) every 3 months for 50 Occurrences starting 11/25/2023 until 11/25/2024 [employer] Comment on above: every 3 months for 5 0 Occurrences starting 11/25/2023 until 11/25/2024 End: 11-25-2024 Cancer antigen 27-29 Cancer antigen 27-29 Lab Routine 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 female breast, unspecified estrogen receptor status (CMS-HCC) every 3 months for 50 Occurrences starting 11/25/2023 until 11/25/2024 [employer] Comment on above: every 3 months for 5 0 Occurrences starting 11/25/2023 until 11/25/2024 End: 11-24-2022 Catheterization and angiography procedure details panel Cardiac Catheterization Cardiac Cath Routine One Time for 1 Occurrences starting 11/24/2022 until 11/24/2022 [employer] Phone: Comment on above: One Time for 1 Occur rences starting 11/24/2022 until 11/24/2022 End: 12-07-2022 Catheterization and angiography procedure details panel Cardiac Catheterization Cardiac Cath Routine One Time for 1 Occurrences starting 12/07/2022 until 12/07/2022 [employer] Phone: Comment on above: One Time for 1 Occur rences starting 12/07/2022 until 12/07/2022 End: 11-25-2024 CBC W Auto Differential panel - Blood CBC with auto diff Lab Routine 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 female breast, unspecified estrogen receptor status (CMS-HCC) every 3 months for 50 Occurrences starting 11/25/2023 until 11/25/2024 [employer] Work Phone: Comment on above: every 3 months for 5 0 Occurrences starting 11/25/2023 until 11/25/2024 End: 11-25-2024 Comprehensive metabolic 2000 panel - Serum or Plasma Comprehensive metabolic panel Lab Routine 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 female breast, unspecified estrogen receptor status (CMS-HCC) every 3 months for 50 Occurrences starting 11/25/2023 until 11/25/2024 [employer] Comment on above: every 3 months for 5 0 Occurrences starting 11/25/2023 until 11/25/2024 End: 01-13-2023 CT CARDIAC W C [facility] MORP CARD ONLY [employer] Phone: Comment on above: 1 Occurrences starti ng 01/13/2023 until 01/13/2023 End: 12-07-2022 EKG 12 lead EKG 12 lead ECG Routine One Time for 1 Occurrences starting 12/07/2022 until 12/07/2022 [employer] Phone: Comment on above: One Time for 1 Occur rences starting 12/07/2022 until 12/07/2022 Glucose [Mass/volume ] in Serum or Plasma POCT glucose Point of Care Testing Routine 4X Daily (AC & HS) until discontinued starting 12/07/2022 [employer] Phone: Comment on above: 4X Daily (AC & HS) u ntil discontinued starting 12/07/2022 End: 12-10-2022 Hemoglobin and Hematocrit Hemoglobin and Hematocrit Lab STAT Post Transfusion Post Transfusion Post Transfustion for 1 Occurrences starting 12/09/2022 until 12/10/2022 [employer] Phone: Comment on above: Post Transfusion Pos t Transfusion Post Transfustion for 1 Occurrences starting 12/09/2022 until 12/10/2022 Oxygen therapy [Mini mum Data Set] Initiate Oxygen Therapy Protocol Respiratory Care Routine As Needed until discontinued starting 11/24/2022 [employer] Phone: Comment on above: As Needed until disc ontinued starting 11/24/2022 Oxygen therapy [Mini mum Data Set] Initiate Oxygen Therapy Protocol Respiratory Care Routine As Needed until discontinued starting 12/07/2022 [employer] Phone: Comment on above: As Needed until disc ontinued starting 12/07/2022 Oxygen therapy [Mini mum Data Set] Initiate Oxygen Therapy Protocol Respiratory Care Routine As Needed until discontinued starting 12/07/2022 [employer] Comment on above: As Needed until disc ontinued starting 12/07/2022 End: 11-24-2022 POC CHEM8 INCLUDES CALC. ANION GAP POC CHEM8 INCLUDES CALC. ANION GAP Point of Care Testing STAT One Time for 1 Occurrences starting 11/24/2022 until 11/24/2022 [employer] Phone: Comment on above: One Time for 1 Occur rences starting 11/24/2022 until 11/24/2022 End: 12-07-2022 POC CHEM8 INCLUDES CALC. ANION GAP POC CHEM8 INCLUDES CALC. ANION GAP Point of Care Testing STAT One Time for 1 Occurrences starting 12/07/2022 until 12/07/2022 [employer] Phone: Comment on above: One Time for 1 Occur rences starting 12/07/2022 until 12/07/2022 End: 12-07-2022 PREPARE RBC (CROSSMATCH), 1 Units PREPARE RBC (CROSSMATCH), 1 Units Blood Bank STAT Once for 1 Occurrences starting 12/07/2022 until 12/07/2022 [employer] Phone: Comment on above: Once for 1 Occurrenc es starting 12/07/2022 until 12/07/2022 End: 12-08-2022 PREPARE RBC (CROSSMATCH), 1 Units PREPARE RBC (CROSSMATCH), 1 Units Blood Bank Routine Once for 1 Occurrences starting 12/08/2022 until 12/08/2022 [employer] Phone: Comment on above: Once for 1 Occurrenc es starting 12/08/2022 until 12/08/2022 End: 12-09-2022 PREPARE RBC (CROSSMATCH), 1 Units PREPARE RBC (CROSSMATCH), 1 Units Blood Bank Routine Once for 1 Occurrences starting 12/09/2022 until 12/09/2022 [employer] Phone: Comment on above: Once for 1 Occurrenc es starting 12/09/2022 until 12/09/2022 End: 12-08-2022 PREVIOUS SPECIMEN [employer] Phone: Comment on above: Once for 1 Occurrenc es starting 12/08/2022 until 12/08/2022 Immunizations Immunization Date Immunization Notes Care Provider [facility] 08-10-2023 Influenza Vaccine, Quadrivalent, Adjuvanted Rambo Muñoz MD Work Phone: [employer] 08-06-2022 Influenza Vaccine, Quadrivalent, Adjuvanted Rambo Muñoz MD Work Phone: [facility] 08-27-2021 influenza, high dose seasonal, preservative-free Rambo Muñoz MD [facility] 05-28-2021 pneumococcal conjuga te vaccine, 13 valent Rambo Muñoz MD Work Phone: [facility] 02-04-2021 COVID-19, mRNA, LNP- S, PF, 30mcg/0.3mL Dose Rambo Muñoz MD Work Phone: [facility] 01-07-2021 COVID-19, mRNA, LNP- S, PF, 30mcg/0.3mL Dose Rambo Muñoz MD Work Phone: [facility] 11-25-2020 influenza, injectabl e, quadrivalent, preservative free Rambo Muñoz MD Work Phone: [facility] 08-30-2020 Influenza, High-dose , Quadrivalent Rambo Muñoz MD Work Phone: [facility] 09-14-2019 influenza, injectabl e, quadrivalent, contains preservative Rambo Muñoz MD Work Phone: [facility] 09-11-2019 influenza, injectabl e, quadrivalent, preservative free Rambo Muñoz MD Work Phone: [facility] 08-31-2018 influenza, injectabl e, quadrivalent, preservative free Rambo Muñoz MD Work Phone: [facility] 09-07-2017 influenza, injectabl e, quadrivalent, preservative free Rambo Muñoz MD Work Phone: [facility] 07-10-2015 pneumococcal polysaccharide vaccine, 23 valent Rambo Muñoz MD Work Phone: [facility] Payers Date Payer Category Payer Medicare [id number] 2022 Medicare ANTHEM MEDICARE ANTHEM MEDICARE ADVANTAGE [id number] 2022-Present [phone] [address] [place] [address] [id number] 2022 Medicare [id number] 2022 [place] EDICAID [id number] 2022-Present [phone] [address] [place] [address] [id number] 2017 Medicaid [id number] 2017 Unknown [id number] 1959 Medicaid [id number] 1946 Unknown [id number] [id number] 1946 Unknown [id number] 2.16.840.1.892079.3.579.2.647 1946 Unknown [id number] 2.16.840.1.317629.3.579.2.175 1946 Unknown [id number] 2.16.840.1.642991.3.579.2.175 1946 Unknown [id number] 2.16.840.1.469471.3.579.2.175 1946 Unknown [id number] 2.16.840.1.583926.3.579.2.175 1946 Unknown [id number] 2.16.840.1.666593.3.579.2.175 1946 Unknown [id number] 2.16.840.1.786208.3.579.2.175 1946 Unknown [id number] 2.16.840.1.184834.3.579.2.175 1946 Unknown [id number] 2.16.840.1.015588.3.579.2.175 1946 Unknown [id number] 2.16.840.1.673804.3.579.2.1286 1946 Unknown [id number] 2.16.840.1.170322.3.579.2.1286 1946 Unknown [id number] 2.16.840.1.764100.3.579.2.1286 1946 Unknown [id number] 2.16.840.1.200863.3.579.2.1286 1946 Unknown [id number] 2.16.840.1.896183.3.579.2.1286 1946 Unknown [id number] 2.16.840.1.705883.3.579.2.1286 1946 Unknown [id number] 2.16.840.1.966590.3.579.2.1286 1946 Unknown [id number] 2.16.840.1.493325.3.579.2.1286 1946 Unknown [id number] 2.16.840.1.414594.3.579.2.1286 1946 Unknown [id number] 2.16.840.1.398958.3.579.2.1286 1946 Unknown [id number] 2.16.840.1.065622.3.579.2.128 1946 Unknown [id number] 2.16.840.1.316165.3.579.2.1286 Social History Date Type Detail Facility Start: 10-15-2014 End: 10-05-2022 Tobacco smoking status [facility] Start: 10-15-2014 End: 02-09-2024 Alcohol intake Current non-drinker of alcohol (finding) [employer] Phone: Start: 10-02-2014 [facility] [employer] Phone: Start: 1945 Sex Assigned At Not on file [employer] Phone: Start: 11-14-2022 End: 12-07-2022 Exposure to SARS-CoV-2 (event) Not sure [facility] [employer] Start: 10-05-2022 Tobacco use and exposure Smokeless tobacco non-user [facility] Start: 10-05-2022 End: 02-09-2024 History of Social function [facility] Start: 10-05-2022 End: 02-09-2024 Social connection and isolation panel [facility] Do you belong to any clubs or organizations such as adventist groups, unions, fraternal or athletic groups, or school groups? Yes [facility] Are you now , , , , never or living with a partner? Never [facility] How often to you hav e a drink containing alcohol? Never [facility] How many standard dr inks containing alcohol do you have on a typical day? Patient does not drink [facility] Do you feel stress - tense, restless, nervous, or anxious, or unable to sleep at night because your mind is troubled all the time - these days [OSQ] Not at all [facility] Start: 03-21-2020 Gender identity Identifies as female gender (finding) [facility] Start: 10-05-2022 Sexual orientation Heterosexual (finding) [facility] Medical Equipment Procedure Code Equipment Code Equipment Origin al Text Equipment Identifier Dates Valve Aor Evolut Fx 26mm - [id number] - [id number] Start: 08-17-2023 Monitor blood wahl gars four times daily and as needed [id number] Start: 10-11-2020 USE FOUR TIMES A DAY. ICD 10 E11.29 [id number] Start: 08-31-2022 4 applicators by miscellaneous route See Admin Instructions. 4 times daily injection [id number] Start: 04-21-2021 Goals Date Patient Goal Desired [...] clinical course. Clinical Notes 03-20-2021 to 03-16-2024 KAIDEN Werner - 02/09/2024 1:00 PM LISA Almodovar CNP - 12/15/2023 3:00 PM Jan Muñoz MD - 11/25/2023 2:30 PM ESTPatient Instructions Note Date & Type Note Facility 03-16-2024 Note SUBJECTIVE: Chief complaint: NPH with CROWN POUNCER shunt, recent stroke. History of present illness: Was hospitalized at outside hospital few days ago when she had experienced abrupt onset of dysarthria as well as facial droop. Was seen at [facility]. Providers there had requested an MRI of the brain and were told by [facility] neurosurgery that she could have an [...] medication for this. Had CT brain and CROWN POUNCER shunt series completed today. Review of systems: As in HPI. Past Medical History: Diagnosis Date Aortic stenosis Asthma Atrial fibrillation (CMS/HCC) Cancer (CMS/HCC) 02/2023 right breast, metastatic Cataract CKD (chronic kidney disease) Coronary artery disease Depression Diabetes mellitus (CMS/HCC) Dyslipidemia GERD (gastroesophageal reflux disease) Hypertension NPH (normal pressure hydrocephalus) (CMS/HCC) PVD (peripheral vascular disease) ([facility]/HCC) Sleep apnea Past Surgical History: Procedure [...] cefuroxime cholecalciferol (vitamin D3) clopidogrel Dexcom G6 [employer] [facility] Dexcom G6 Transmitter device ferrous sulfate FreeStyle Kartik 14 Day [place] [facility] FreeStyle Kartik 14 Day Sensor kit furosemide gabapentin hydroCHLOROthiazide insulin lispro lancets [facility] letrozole Levemir FlexPen insulin pen melatonin capsule metoprolol tartrate miscellaneous medical supply [facility] mupirocin ONETOUCH ULTRA BLUE TEST STRIP [facility] OneTouch Ultra Test strip oxybutynin pantoprazole pen [...] sugar diagnostic (ONETOUCH ULTRA BLUE TEST STRIP [facility]), OneTouch Ultra Blue Test Strip, Disp: , [...] the morning., Disp: , Rfl: Dexcom G6 Adobe Developer misc, See administration instructions., Disp: , Rfl: Dexcom G6 Transmitter device, CHANGE EVRY 90 DAYS., Disp: , Rfl: ferrous sulfate 325 (65 Fe) MG EC tablet, Take 325 mg by mouth., Disp: , Rfl: FreeStyle Kartik reader (FreeStyle Kartik 14 Day [place]) misc, FreeStyle Kartik 14 Day [place], Disp: , Rfl: FreeStyle Kartik sensor system (FreeStyle Kartik 14 Day Sensor) kit, FreeStyle Kartik 14 Day Sensor kit, Disp: , Rfl: furosemide (Lasix) 20 mg tablet, Take 20 mg by mouth in the morning., Disp: , Rfl: gabapentin (Neurontin) 300 mg capsule, TAKE 1 CAPSULE (300 MG TOTAL) BY MOUTH IN T (more content not included)... [facility] 02-09-2024 History of Present illness Narrative Images from the original note were not included. [address] [place] [id number] SUBJECTIVE: Patient ID: Cuca Goodwin is a 78 y.o. female. Chief Complaint Patient presents with incontinence Accompanied by daughter today Urine is cloudy, increased incontinence. Concerns for reoccurrence of UTI. Patient was hospitalized at [facility] in September 2023 for UTI. Uses [...] 10/17/2019 Performed by Sang Bell DO at [facility] HYSTEROSCOPY DILATION CURETTAGE MYOSURE N/A 01/29/2021 Performed by Jv Briones MD at [facility] INJECTION BLOCK EPIDURAL CAUDAL STEROID N/A 08/14/2022 Performed by Arnulfo Gonzalez MD at [facility] INJECTION BLOCK EPIDURAL CAUDAL STEROID N/A 06/06/2021 Performed by Arnulfo Gonzalez MD at [facility] INJECTION BLOCK EPIDURAL CAUDAL STEROID N/A 04/25/2021 Performed by Arnulfo Gonzalez MD at [facility] INJECTION CAUDAL EPIDURAL WITH CATHETER, STEROID N/A 05/03/2020 Performed by Arnulfo Gonzalez MD at [facility] INJECTION CAUDAL EPIDURAL WITH CATHETER, STEROID N/A 11/24/2019 Performed by Arnulfo Gonzalez MD at [facility] INJECTION CAUDAL EPIDURAL WITH CATHETER, STEROID N/A 04/21/2019 Performed by Arnulfo Gonzalez MD at [facility] MEDIAL BRANCH NERVE BLOCK Bilateral L 4/5, 5/1 Bilateral 08/18/2019 Performed by Arnulfo Gonzalez MD at [facility] INJECTION MEDIAL BRANCH NERVE BLOCK Bilateral L 4/5, 5/1 Bilateral 06/23/2019 Performed by Arnulfo Gonzalez MD at [facility] INJECTION STEROID EPI 1 WITH SEDATION Right L 4, 5 NR Right 03/17/2019 Performed by Arnulfo Gonzalez MD at [facility] INJECTION STEROID EPI 1 WITH SEDATION: right L45 nroot Right 08/15/2018 Performed by Arnulfo Gonzalez MD at [facility] LEFT L4, AND 5 NERVE ROOT INJECTION 2 OF 2 Left 07/22/2018 Performed by Arnulfo Gonzalez MD at [facility] LEFT L4, AND L5 NERVE ROOT 1 OF 2 Left 07/04/2018 Performed by Arnulfo Gonzalez MD at [facility] PERCUTANEOUS CORONARY INTERVENTION SHUNT INSERTION TONSILLECTOMY AGE 4 Transcutaneous aortic valve replacement/Transfemoral/Kwan N/A 08/17/2023 Performed by Chava Norris MD at [facility] Valvuloplasty aortic N/A 06/03/2023 Performed by Chava Norris MD at [facility] Past Medical History: Diagnosis Date Anemia Arthritis Asthma very mild, no inhaler use Cataract Dental disease Depression Diabetes mellitus ([facility]) Diabetes mellitus type 2, controlled ([facility]) Encephalitis Foot fracture, left GERD (gastroesophageal reflux disease) Heart murmur HLD (hyperlipidemia) Hypertension Incontinence Injury of back Insulin dependent diabetes mellitus Kidney failure STAGE 4 Lumbar spondylolysis Murmur Obesity CHELSEA (obstructive sleep apnea) no machine Peptic ulceration Peripheral vascular disease ([facility]) Shortness of breath TIA (transient ischemic attack) [...] Werner 02/09/24 1420 documented in this encounter [employer] 12-15-2023 History of Present illness Narrative Images from the original note were not included. [address] [place] [id number] SUBJECTIVE: Patient ID: Cuca Goodwin is a [...] 10/17/2019 Performed by Sang Bell DO at [facility] HYSTEROSCOPY DILATION CURETTAGE MYOSURE N/A 01/29/2021 Performed by Jv Briones MD at [facility] INJECTION BLOCK EPIDURAL CAUDAL STEROID N/A 08/14/2022 Performed by Arnulfo Gonzalez MD at [facility] INJECTION BLOCK EPIDURAL CAUDAL STEROID N/A 06/06/2021 Performed by Arnulfo Gonzalez MD at [facility] INJECTION BLOCK EPIDURAL CAUDAL STEROID N/A 04/25/2021 Performed by Arnulfo Gonzalez MD at [facility] INJECTION CAUDAL EPIDURAL WITH CATHETER, STEROID N/A 05/03/2020 Performed by Arnulfo Gonzalez MD at [facility] INJECTION CAUDAL EPIDURAL WITH CATHETER, STEROID N/A 11/24/2019 Performed by Arnulfo Gonzalez MD at [facility] INJECTION CAUDAL EPIDURAL WITH CATHETER, STEROID N/A 04/21/2019 Performed by Arnulfo Gonzalez MD at [facility] INJECTION MEDIAL BRANCH NERVE BLOCK Bilateral L 4/5, 5/1 Bilateral 08/18/2019 Performed by Arnulfo Gonzalez MD at [facility] INJECTION MEDIAL BRANCH NERVE BLOCK Bilateral L 4/5, 5/1 Bilateral 06/23/2019 Performed by Arnulfo Gonzalez MD at [facility] INJECTION STEROID EPI 1 WITH SEDATION Right L 4, 5 NR Right 03/17/2019 Performed by Arnulfo Gonzalez MD at [facility] INJECTION STEROID EPI 1 WITH SEDATION: right L45 nroot Right 08/15/2018 Performed by Arnulfo Gonzalez MD at [facility] LEFT L4, AND 5 NERVE ROOT INJECTION 2 OF 2 Left 07/22/2018 Performed by Arnulfo Gonzalez MD at [facility] LEFT L4, AND L5 NERVE ROOT 1 OF 2 Left 07/04/2018 Performed by Arnulfo Gonzalez MD at [facility] PERCUTANEOUS CORONARY INTERVENTION SHUNT INSERTION TONSILLECTOMY AGE 4 Transcutaneous aortic valve replacement/Transfemoral/Kwan N/A 08/17/2023 Performed by Chava Norris MD at [facility] Valvuloplasty aortic N/A 06/03/2023 Performed by Cahva Norris MD at [facility] Past Medical History: Diagnosis Date Anemia Arthritis Asthma very mild, no inhaler use Cataract Dental disease Depression Diabetes mellitus ([facility]) Diabetes mellitus type 2, controlled ([facility]) Encephalitis Foot fracture, left GERD (gastroesophageal reflux disease) Heart murmur HLD (hyperlipidemia) Hypertension Incontinence Injury of back Insulin dependent diabetes mellitus Kidney failure STAGE 4 Lumbar spondylolysis Murmur Obesity CHELSEA (obstructive sleep apnea) no machine Peptic ulceration Peripheral vascular disease ([facility]) Shortness of breath TIA (transient ischemic attack) [...] needed (cough and congestion). Normal pressure hydrocephalus ([facility]-HCC) Moderate episode of recurrent major depressive disorder ([facility]) PVD (peripheral vascular disease) ([facility]) 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 mellitus ([facility]) - gabapentin (NEURONTIN) 300 mg capsule; Take 1 capsule (300 mg total) by mouth in the morning and 1 capsule (300 mg total) before bedtime. Stage 3b chronic kidney disease ([facility]) Major depressive disorder in partial remission, unspecified whether recurrent ([facility]) - sertraline (ZOLOFT) 100 mg tablet; Take [...] stage 3b chronic kidney disease and hypertension ([facility]-HCC) - SITagliptin phosphate (JANUVIA) 50 mg [...] for sore throat. 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 Body mass [...] Werner 12/15/23 1559 documented in this encounter [facility] 11-25-2023 History of Present illness Narrative Images from the original note were not included. [facility] 11/25/23 Cuca Goodwin is a 78 y.o. year old female seen today in the oncology clinic. Chief Complaint Patient presents with Follow-up History of Present Illness: Mrs. Goodwin is a 78 y.o. female with history of aortic valve stenosis, she had PCI earlier in the year at [facility] for coronary disease. during the cardiac [...] mammary carcinoma, grade 2, ER strongly positive MI moderately positive and HER2 negative. There was [...] use Cataract Dental disease Depression Diabetes mellitus ([facility]) Diabetes mellitus type 2, controlled ([facility]) Encephalitis Foot fracture, left GERD (gastroesophageal reflux disease) Heart murmur HLD (hyperlipidemia) Hypertension Incontinence Injury of back Insulin dependent diabetes mellitus Kidney failure STAGE 4 Lumbar spondylolysis Murmur Obesity CHELSEA (obstructive sleep apnea) no machine Peptic ulceration Peripheral vascular disease ([facility]) Shortness of breath TIA (transient ischemic attack) Upper respiratory infection UTI (urinary tract infection) Visual impairment Wears dentures Past Surgical History: Procedure Laterality Date BREAST BIOPSY Right 03/01/2023 ULT BIOPSY CATARACT EXTRACTION SECTION SECTION 03/14/1974 EGD N/A 10/17/2019 Performed by Sang Bell DO at [facility] HYSTEROSCOPY DILATION CURETTAGE MYOSURE N/A 01/29/2021 Performed by Jv Briones MD at [facility] INJECTION BLOCK EPIDURAL CAUDAL STEROID N/A 08/14/2022 Performed by Arnulfo Gonzalez MD at [facility] INJECTION BLOCK EPIDURAL CAUDAL STEROID N/A 06/06/2021 Performed by Arnulfo Gonzalez MD at [facility] INJECTION BLOCK EPIDURAL CAUDAL STEROID N/A 04/25/2021 Performed by Arnulfo Gonzalez MD at [facility] INJECTION CAUDAL EPIDURAL WITH CATHETER, STEROID N/A 05/03/2020 Performed by Arnulfo Gonzalez MD at [facility] INJECTION CAUDAL EPIDURAL WITH CATHETER, STEROID N/A 11/24/2019 Performed by Arnulfo Gonzalez MD at [facility] INJECTION CAUDAL EPIDURAL WITH CATHETER, STEROID N/A 04/21/2019 Performed by Arnulfo Gonzalez MD at [facility] INJECTION MEDIAL BRANCH NERVE BLOCK Bilateral L 4/5, 5/1 Bilateral 08/18/2019 Performed by Arnulfo Gonzalez MD at [facility] MEDIAL BRANCH NERVE BLOCK Bilateral L 4/5, 5/1 Bilateral 06/23/2019 Performed by Arnulfo Gonzalez MD at [facility] INJECTION STEROID EPI 1 WITH SEDATION Right L 4, 5 NR Right 03/17/2019 Performed by Arnulfo Gonzalez MD at [facility] INJECTION STEROID EPI 1 WITH SEDATION: right L45 nroot Right 08/15/2018 Performed by Arnulfo Gonzalez MD at [facility] LEFT L4, AND 5 NERVE ROOT INJECTION 2 OF 2 Left 07/22/2018 Performed by Arnulfo Gonzalez MD at [facility] LEFT L4, AND L5 NERVE ROOT 1 OF 2 Left 07/04/2018 Performed by Arnulfo Gonzalez MD at [facility] PERCUTANEOUS CORONARY INTERVENTION SHUNT INSERTION TONSILLECTOMY AGE 4 Transcutaneous aortic valve replacement/Transfemoral/Kwan N/A 08/17/2023 Performed by Chava Norris MD at [facility] Valvuloplasty aortic N/A 06/03/2023 Performed by Chava Norris MD at [facility] Family History Problem [...] min Stress: No Stress Concern Present (10/05/2022) [employer] - Occupational Stress Questionnaire Feeling of Stress : Not at all Social Connections: Moderately Isolated (10/05/2022) Social Connection and Isolation Panel [NHANES] Frequency of Communication with Friends and Family: Never Frequency of Social Gatherings with Friends and Family: Never Attends [employer] Services: More than 4 times per year [...] nephropathy, without long-term current use of insulin ([facility]) Signed by: KAIDEN Santana Monitor blood sugars four times daily and as needed clopidogreL 75 mg tablet Refills: 0 Dose: 75 mg Commonly known as: PLAVIX COMFORT EZ PEN NEEDLES 32 gauge x 5/16 needle Quantity: 200 each Refills: 6 For diagnoses: Type 2 diabetes mellitus with stage 4 chronic kidney disease, with long-term current use of insulin ([facility]) Dose: 4 applicator Signed by: KAIDEN Santana 4 applicators, miscellaneous, See admin instructions, 4 times daily injection Generic drug: pen needle, diabetic DEXCOM G6 [employer] misc Refills: 0 Dose: 1 Device Generic drug: blood-glucose meter,continuous DEXCOM G6 SENSOR device Refills: 0 Generic drug: blood-glucose sensor gabapentin 300 mg capsule Quantity: 180 capsule Refills: 1 Doctor's comments: 90 Day Supply. 1 refill For diagnoses: 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 mellitus ([facility]) Dose: 300 mg Signed by: KAIDEN Santana 300 mg, oral, 2 times daily Commonly known as: NEURONTIN hydroCHLOROthiazide 25 mg tablet Refills: 0 Dose: 25 mg Commonly known as: HYDRODIURIL insulin lispro 100 unit/mL insulin pen Refills: 0 For diagnoses: Mixed diabetic hyperlipidemia associated with type 2 diabetes mellitus ([facility]) Dose: 2 Units Signed by: RONNA Solis [...] nephropathy, without long-term current use of insulin ([facility]) Signed by: KAIDEN Santana Monitor blood sugars four times daily and as needed Commonly known as: onetouch ultrasoft * ONETOUCH DELICA PLUS LANCET 33 gauge misc Refills: 0 Generic drug: lancets letrozole 2.5 mg chemo tablet Quantity: 90 tablet Refills: 3 For diagnoses: 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 female breast, unspecified estrogen receptor status ([facility]) Dose: 2.5 mg Signed by: Dr. 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 Dose: 25 [...] without esophagitis Dose: 40 mg Signed by: KAIDNE Santana 40 mg, oral, Daily Commonly known as: PROTONIX sertraline 100 mg tablet Quantity: 90 tablet Refills: 1 For diagnoses: Major depressive disorder in partial remission, unspecified whether recurrent ([facility]) Dose: 100 mg Signed by: KAIDEN Santana 100 mg, oral, Daily Commonly known as: ZOLOFT SITagliptin phosphate 50 mg tablet Quantity: 90 tablet Refills: 1 For diagnoses: Diabetes mellitus type 2, insulin dependent ([facility]), 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 ([facility]) Dose: 50 mg Signed by: KAIDEN Santana [...] to ensure the accuracy of this automated solaris administrator, some errors in solaris administrator may have occurred. CC: Patient Care Team: KAIDEN Werner as PCP - General (Family Medicine) Simeon Quiles MD (Nephrology) KAIDEN Hsu as Nurse Practitioner (Pulmonary Medicine) Madison Ye MD as Referring Physician (Endocrinology, Diabetes & Metabolism) Rambo Muñoz MD as Consulting Physician (Hematology) PCP:Pam Ley Referring MD: Pam Ley, AP* documented in this encounter [facility] 11-25-2023 Instructions Rambo Muñoz MD - 11/25/2023 2:30 PM EST Pet SCAN 02/2024. F/u in late 02/2024 to review results. Continue femara alone. Labs before appt: CBC, CMP, CA 15-3, CA 27.29. [facility]23[facility]23 Note SUBJECTIVE: Chief complaint: CROWN POUNCER shunt adjustment status post 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 History of present illness: Return visit for NPH status post CROWN POUNCER shunt. Had MRI thoracic and lumbar spine done at [facility] last week due to concern for [...] Medications: acetaminophen amLODIPine aspirin atorvastatin blood-glucose meter [facility] cefuroxime cholecalciferol (vitamin D3) clopidogrel Dexcom G6 Sensor device ferrous sulfate FreeStyle Kartik 14 Day [place] [facility] FreeStyle Kartik 14 Day Sensor kit furosemide gabapentin hydroCHLOROthiazide insulin lispro lancets [facility] letrozole Levemir FlexPen insulin pen melatonin capsule metoprolol succinate XL metoprolol tartrate miscellaneous medical supply [facility] mupirocin ONETOUCH ULTRA BLUE TEST STRIP [facility] OneTouch Ultra Test strip oxybutynin oxybutynin XL [...] sugar diagnostic (ONETOUCH ULTRA BLUE TEST STRIP [facility]), OneTouch Ultra Blue Test Strip, Disp: , Rfl: blood sugar diagnostic (OneTouch Ultra Test) strip, OneTouch Ultra Test strips 1 STRIP BY OTHER ROUTE 4 (FOUR) TIMES A DAY BEFORE MEALS AND NIGHTLY., Disp: , Rfl: blood-glucose meter [facility], OneTouch Ultra2 Meter, Disp: , Rfl: blood-glucose meter [facility], Monitor blood sugars four times daily and [...] FreeStyle Kartik reader (FreeStyle Kartik 14 Day [place]) misc, FreeStyle Kartik 14 Day [place], Disp: , Rfl: FreeStyle Kartik sensor system [...] (U-100) Insulin 10 (more content not included)... [facility] 12-11-2022 History of Present illness Narrative Patient discharged home. Discharge instructions were explained and given to the patient, patient verbalized understanding. All belongings were sent with the patient. No signs of acute distress noted, no concerns voiced. Physical Therapy Facility/Department: [address] [facility] Name: Cuca Goodwin : 1945 [...] 25 Sasha Maldonado PT Physical Therapy Facility/Department: [address] [facility] Daily Treatment Note NAME: Cuca [...] the original note were not included. [employer] Progress Note Date: 12/09/2022 Patient name: Cuca [...] a max pressure of: 10 graciela. [place] 2.5 x 12 CÉSAR. 1 inflation(s) to [...] 182 cm. Number of passes: 1. [place] 2.5 x 12 CÉSAR. 1 inflation(s) to [...] stable. Plans for TAVR work-up as OP [place] [employer] [facility]. [phone] Physical Therapy Facility/Department: [address] Physical Therapy Initial Assessment Name: Cuca [...] pt repositioned in bed for comfort upon typewriters functional tester's exit. Subjective Subjective: RN and pt in [...] rollator at baseline) Transfer Assistance: Independent Active Dehydrogenation Converter Helper: No Mode of Transportation: Friends, Cab Occupation: [...] the original note were not included. [employer] [employer] Progress Note Date: 12/08/2022 Patient name: Cuca [...] a max pressure of: 12 graciela. [place] 3.0 x 12 CÉSAR. 1 inflation(s) to [...] Plans for TAVR work-up as OP [employer] [phone] Collar Runner discussed the next step in the TAVR process, an appointment with the cardiothoracic surgeon, with patient and daughter at bedside in [facility]. Office number given to daughter, she will call to schedule in the next couple days. Collar Runner's contact number also given. Patient declined AM [...] stretcher. Right groin assessed by Joelle and typewriters functional tester. Groin remains soft. Dr Jin at bedside [...] Manual pressure held Manual pressure held per typewriters functional tester for [address] Martinez at bedside to assess. Order for POC H & H received. Hemaglobin 6.9. Stat lab draw ordered. Dr Martinez at bedside to assess. Order for LLE vascualr scan received. 1 Patient admitted, consent signed and questions answered. Patient ready for procedure. Call light to reach with side rails up 2 of 2. Bilateral groin areas clipped with typewriters functional tester and Maggi estrada present. Daughter Ismael at bedside with patient. History and physical needs updated. Received post cardiac cath procedure to [facility] room 10. Assessment obtained. Restrictions reviewed with patient. Post procedure pathway initiated. Right site noted to have small hematoma, manual pressure held by Juana. Band aid dry and intact. Family at side. Patient without complaints. Head of bed flat with right leg straight. documented in this encounter [employer] [facility] [employer] Work Phone: 12-07-2022 Note [facility] Vascular Lower Extremities Arterial Duplex Procedure Patient Name CHRISTA Date of Study 12/07/2022 CUCA Date of 1945 Gender Female Age 77 year(s) Race Room Number 0501 Height: 65 inch, 165.1 cm Corporate ID # [id number] Weight: 208 pounds, 94.3 kg Patient BSA: 2.01 m^2 BMI: 34.61 kg/m^2 MR # [id number] [place] Drier Whit Gan RVT Interpreting Physician Darnell Monique [...] ! ! +---------++-----+-----+------+--- -+------++---+-----+------+----+-- -------+ [facility] 11-24-2022 History of Present illness Narrative Patient admitted, consent signed and questions answered. Patient ready for procedure. Call light to reach with side rails up 2 of 2. Bilateral groin areas clipped with typewriters functional tester and Jose PIERRE present. Daughter Ileana at bedside with patient. History and physical needs updated. documented in this encounter [employer] Phone: 03-20-2021 Note PROCEDURE: XR FOOT L T MIN 3 VIEWS COMPARISON: None. HISTORY: Pain FINDINGS: BONES:No acute fracture or dislocation. Persistent flexion of the toes limits their evaluation. Mild to moderate degenerative changes with joint space narrowing and marginal osteophyte formation, most significant at the first metatarsophalangeal joint where [id number] endplate is observed SOFT TISSUES:Negative. No visible soft tissue swelling. EFFUSION:None visible. OTHER: Negative. IMPRESSION: Moderate degenerative changes, no acute fracture Electronically authenticated by: GIOVANNY NICOLE Date: 2021-03-20 08:29 [facility] Evaluation note Diagnosis Severe aortic valve stenosis- Primary Aortic valve disorders documented in this encounter [employer] Phone: evaluation note* Diagnosis RAIN (acute kidney injury) (HCC)- Primary Acute kidney failure, unspecified documented in this encounter [employer] Phone: evaluation note* Diagnosis Severe aortic valve [...] kidney disease (HCC) Coronary artery disease involving nez perce coronary artery of nez perce heart without angina pectoris documented in this encounter [employer] Phone: evalvjjfqe note* Diagnosis Aortic valve stenosis, etiology of cardiac valve disease unspecified documented in this encounter [employer] Phone: evaloewlwm note* Diagnosis Aortic valve stenosis, etiology of cardiac valve disease unspecified documented in this encounter [employer] Phone: evaltdmnif note* Diagnosis 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 female breast, unspecified estrogen receptor status ([facility])- Primary [facility] Diagnosis Insomnia, unspecified type [facility] Diagnosis Upper respiratory tract infection, unspecified type- Primary Normal pressure hydrocephalus ([facility]) 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 ([facility]) PVD (peripheral vascular disease) ([facility]) Unspecified peripheral vascular disease 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 mellitus ([facility]) Stage 3b chronic kidney disease ([facility]) Major depressive disorder in partial remission, unspecified whether recurrent ([facility]) Essential hypertension Unspecified essential hypertension GERD without esophagitis Esophageal reflux 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 ([facility]) [facility] Diagnosis 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 female breast, unspecified estrogen receptor status ([facility]) [facility] Diagnosis Acute cystitis without hematuria- Primary Urge incontinence of urine Urge incontinence [facility]* Attachments The following attachments cannot be sent through Care Everywhere. * PCI (Percutaneous Coronary Intervention): Post-op (Slovenian) [facility] [employer] Work Phone: InstructionsNot on filedocumented in this encounter [facility]* Attachments The following attachments cannot be sent through Care Everywhere. * Bacterial Upper Respiratory Infection, Adult (Slovenian) [facility] SystemInstructionsNot on file documented [facility]* Attachments The following attachments cannot be sent through Care Everywhere. * Urinary Tract Infection Discharge Instructions, Adult (Slovenian) [facility] Advance Directives No Advanced Directives Records FoundDocuments on File Type Date Recorded Patient Multi Purpose Machine Operator Expl anation ACP-Advance Directive ACP-Power of City Manager Latest Code Status on File Code Status [...] Documents on File Type Date Recorded Patient Multi Purpose Machine Operator Expl anation ACP-Advance Directive 12/14/2022 2:27 PM Latest Code Status on File Code Status Date Activated Date Inactivated Comments Full Code 12/07/2022 11:24 AM 12/11/2022 1:10 PM Full Code 11/24/2022 11:19 AM 11/25/2022 2:46 AM Full Code 09/28/2022 4:15 AM 09/30/2022 6:37 PM Full Code 10/15/2014 1:49 PM 10/15/2014 8:39 PM Documents on File Type Date Recorded Patient Multi Purpose Machine Operator Expl anation ACP-Advance Directive 12/14/2022 2:27 PM Latest Code Status on File Code Status Date Activated Date Inactivated Comments Full Code 12/07/2022 11:24 AM 12/11/2022 1:10 PM Documents on File Type Date Recorded Patient Multi Purpose Machine Operator Expl anation Durable Power of City Manager 10/21/2022 2:24 PM DNR Physician Order 10/21/2022 2:24 PM Living Will 01/30/2021 12:07 PM Durable Power of City Manager 01/30/2021 12:07 PM Living Will 01/29/2021 6:19 AM Advance Directive 01/29/2021 6:18 AM DNR Physician Order 11/03/2019 1:27 PM Latest Code Status on File Code Status Date Activated Date Inactivated Comments Full Code 03/28/2023 5:07 PM 04/01/2023 3:32 PM Code Status History Code Status Date Activated Date Inactivated Comments DNR Comfort Care Arrest (DNR-CCA) [place] 10/06/2022 8:43 AM 10/06/2022 8:41 PM Full [...] STC MORP CARD ONLY Namrata Blair, MANAGER EXPORT - ROTO MIXER OPERATOR [address] [place] [address] Referral ID Status Reason Start Date Expiration Date Visits Re quested Visits Authorized [id number] Closed 01/11/2023 04/10/2023 1 1 Specialty Diagnoses / Procedures Referred By Contac t Referred To Contact Radiology Diagnoses Aortic valve stenosis, etiology of cardiac valve disease unspecified Procedures CTA CHEST ABDOMEN PELVIS W CONTRAST Namrata Blair MANAGER EXPORT - ROTO MIXER OPERATOR [address] [place] [address] Referral ID Status Reason Start Date Expiration Date Visits Re quested Visits Authorized [id number] Closed 01/11/2023 04/10/2023 1 1 Additional Source Comments INFORMATION SOURCE (unrecogn ized section and content) DATE CREATED AUTHOR 03/27/2021 Marah Gonzalez [facility]ital DATE CREATED AUTHOR AUTHOR'S ORGANIZ ATION 04/09/[address] [facility] DATE CREATED AUTHOR AUTHOR'S ORGANIZ ATION 04/06/[address] [facility] DATE CREATED AUTHOR AUTHOR'S ORGANIZ ATION 01/22/2023 [facility] DATE CREATED AUTHOR AUTHOR'S ORGANIZ ATION 02/12/[address] [facility] DATE CREATED AUTHOR AUTHOR'S ORGANIZ ATION 03/05/2024 [facility] DATE CREATED AUTHOR AUTHOR'S ORGANIZ ATION 03/11/2024 [facility] DATE CREATED AUTHOR AUTHOR'S ORGANIZ ATION 03/20/2024 [facility] Reason for Visit (unrecogniz ed section and content) Specialty Diagnoses / Procedures Referred By Polo tobias Referred To Contact [facility] [address] [place] [address] Referral ID Status Reason Start Date Expiration Date Visits Re quested Visits Authorized [id number] 1 1 Referral ID Status Reason Start Date Expiration Date Visits Re quested Visits Authorized [id number] 1 1 Specialty Diagnoses / Procedures Referred By Polo tobias Referred To Contact Radiology Diagnoses Aortic valve stenosis, etiology of cardiac valve disease unspecified Procedures CT CARDIAC W C STC MORP CARD ONLY Namrata Blair, MANAGER EXPORT - ROTO MIXER OPERATOR [address] [place] [address] Referral ID Status Reason Start Date Expiration Date Visits Re quested Visits Authorized [id number] Closed 01/11/2023 04/10/2023 1 1 Specialty Diagnoses / Procedures Referred By Polo tobias Referred To Contact Radiology Diagnoses Aortic valve stenosis, etiology of cardiac valve disease unspecified Procedures CTA CHEST ABDOMEN PELVIS W CONTRAST Namrata Blair, MANAGER EXPORT - ROTO MIXER OPERATOR [address] [place] [address] Referral ID Status Reason Start Date Expiration Date Visits Re quested Visits Authorized [id number] Closed 01/11/2023 04/10/2023 1 1 Reason Comments Follow-up Reason Onset Date Comments Med Refill 12/06/2023 Reason Comments Cough Nasal Congestion Reason Comments Med Refill Reason Comments incontinence Care Teams (unrecognized sec tion and content) Replanting Machine Operator Relationship Specialty Start Date End Date Caden Sanchez PCP - General Family Medicine 09/29/22 Replanting Machine Operator Relationship Specialty Start Date End Date Caden Sanchez PCP - General Family Medicine 09/29/22 Replanting Machine Operator Relationship Specialty Start Date End Date Caden Sanchez PCP - General Family Medicine 09/29/22 Replanting Machine Operator Relationship Specialty Start Date End Date Caden Sanchez PCP - General Family Medicine 09/29/22 Replanting Machine Operator Relationship Specialty Start Date End Date Caden Sanchez PCP - General Family Medicine 09/29/22 Replanting Machine Operator Relationship Specialty Start Date End Date Pam Ley MANAGER EXPORT [facility] [address] [place] [address] [facility] General 01/15/23 Replanting Machine Operator Relationship Specialty Start Date End Date Pam Ley [facility] [address] [place] [address] [facility] General 01/15/23 Replanting Machine Operator Relationship Specialty Start Date End Date Pam Ley [facility] [address] [place] [address] PCP - [facility] 09/28/23 Replanting Machine Operator Relationship Specialty Start Date End Date [facility] [address] [place] [address] PCP - [facility] 09/28/23 Replanting Machine Operator Relationship Specialty Start Date End Date [facility] [address] [place] [address] PCP - [facility] 09/28/23 Replanting Machine Operator Relationship Specialty Start Date End Date Pam Ley [facility] [address] [place] [address] PCP - General Family Medicine 09/28/23 Ordered [...] Villavicencio RN) 0605 (Rate/Dose Verify - Provider: Tamiak Villavicencio RN) 0959 (Stopped - Provider: Stefanie [...] from all sources in 24 hours., Recovery(Cath) 0908 (Given - Provider: Jacqueline Medina RN) bisacodyl [...] BE BASED ON THE PRIMARY CLINICAL RECORDS. [employer] provides no warranty or guarantee of the accuracy or completeness of information in this document.
[2024-04-06] MEDS: 0.9 % SODIUM CHLORIDE 1,000 ML 100 ML IV (03:29)
[2024-04-06 04:28] LABS: Basophils Percent Auto 0.3 % (0.2-2.0); Hematocrit 28.9 % (36.0-48.0); Hemoglobin 8.9 g/dL (12.0-16.0); Immature Granulocytes Abs Auto 0.09 10^3/uL (0.00-0.03); Immature Granulocytes Pct Auto 0.7 % (0.0-0.5); Lymphocytes Absolute Auto 0.7 10^3/uL (1.2-3.8); Lymphocytes Percent Auto 5.4 % (20.5-60.0); Mean Corpuscular HGB Conc 30.8 g/dL (29.9-35.2); Mean Corpuscular Hemoglobin 28.5 pg (26.7-34.0); Mean Corpuscular Volume 92.6 fL (81.0-99.0); Mean Platelet Volume 10.3 fL (9.5-13.5); Monocytes Absolute Auto 0.6 10^3/uL (0.3-0.8); Neutrophils Absolute Auto 11.4 10^3/uL (1.4-6.5); Neutrophils Percent Auto 88.6 % (43.0-75.0); Platelet Count 197 10^3/uL (150-450); Red Blood Count 3.12 10^6/uL (4.20-5.40); White Blood Count 12.8 10^3/uL (4.0-11.0)
[2024-04-06 04:55] LABS: Alanine Aminotransferase 15 U/L (14-59); Albumin Globulin Ratio 0.8; Albumin Level 3.2 g/dL (3.4-5.0); Alkaline Phosphatase 78 U/L (46-116); Anion Gap 10.3; Aspartate Amino Transferase 15 U/L (15-37); BUN Creatinine Ratio 15.3; Bilirubin Total 0.2 mg/dL (0.2-1.0); Calcium 8.7 mg/dL (8.5-10.1); Carbon Dioxide 29.1 mmol/L (21.0-32.0); Chloride 102 mmol/L (98-107); Estimated GFR (African America 34 (>=60); Estimated GFR (Non-African Ame 28 (>=60); Glucose 296 mg/dL (74-106); Potassium 5.4 mmol/L (3.5-5.1); Sodium 136 mmol/L (136-145); Total Protein 7.2 g/dL (6.4-8.2)
[2024-04-06] MEDS: ONDANSETRON PF 4 MG/2 ML VIAL IV (06:31)
--- NOTE | 2024-04-06 06:34 | PC.NURSE ---
pt coughing up secretions and vomiting. Pt states she is short of breath and appears to have difficulty catching her breath due to the persistent cough. Pt was given PRN zofran per order, and respiratory therapy was called for PRN treatment.
[2024-04-06] MEDS: IPRATROPIUM/ALBUTEROL SULFATE 3 ML AMPUL.NEB IH ×4 (06:42→22:23)
[2024-04-06 07:42] LABS: Glucometer 228 mg/dL (74-106)
--- NOTE | 2024-04-06 08:19 | P.HP_ITS ---
HPI H&P: HPI History of Present Illness Chief complaint: Hypoglycemia Narrative: Patient, hypoglycemic reaction. In ER patient found to have bibasilar pneumonia. Patient placed on IV Rocephin supplement. Urine is resulted When I saw pt on Med surg floor she was having inc cough = had emeis overnight due to coughing. Repeat vitals by nurse found pt to have os sat 81%, bumped up O2 to 4 L wiht good result - pt still lethargic and was transferred back to the ICU Opioid HPI Opioid Management Most Recent Opioid Data: Last Pain Scale 0 10/04/23 11:15 Last Pain Intensity 2 10/01/23 09:25 Last Pain Assessment 04/06/24 08:26 Last ORT Total Score 0 04/06/24 02:17 Last ORT Risk Category Low Risk 04/06/24 02:17 Review of Systems ROS Status of ROS 10 or more systems reviewed and unremark able except as noted in history and below [facility] Medical History (Updated 04/06/24 @ 00:35 by Tanya Mayer MD) Arthritis ?M19.90 - Unspecified osteoarthritis, unspecified site (ICD-10) Anemia ?D64.9 - Anemia, unspecified (ICD-10) Asthma ?J45.909 - Unspecified asthma, uncomplicated (ICD-10) Encephalitis ?G04.90 - Encephalitis and encephalomyelitis, unspecified (ICD-10) Metastasis to bone ?C79.51 - Secondary malignant neoplasm of bone (ICD-10) Peptic ulcer disease ?K27.9 - Peptic ulcer, site unspecified, unspecified as acute or chronic, without hemorrhage or perforation (ICD-10) TIA (transient ischemic attack) ?G45.9 - Transient cerebral ischemic attack, unspecified (ICD-10) CHELSEA (obstructive sleep apnea) ?G47.33 - Obstructive sleep apnea (adult) (pediatric) (ICD-10) PVD (peripheral vascular disease) ?I73.9 - Peripheral vascular disease, unspecified (ICD-10) Lumbar spondylosis ?M47.816 - Spondylosis without myelopathy or radiculopathy, lumbar region (ICD-10) Incontinence ?R32 - Unspecified urinary incontinence (ICD-10) CKD (chronic kidney disease) stage 3, GFR 30-59 ml/min ?N18.30 - Chronic kidney disease, stage 3 unspecified (ICD-10) Breast CA ?C50.919 - Malignant neoplasm of unspecified site of unspecified female breast (ICD-10) CAD (coronary artery disease) ?I25.10 - Atherosclerotic heart disease of [place] coronary artery without angina pectoris (ICD-10) Depression ?F32.A - Depression, unspecified (ICD-10) GERD (gastroesophageal reflux disease) ?K21.9 - Gastro-esophageal reflux disease without esophagitis (ICD-10) Hypertension ?I10 - Essential (primary) hypertension (ICD-10) Diabetes ?E11.9 - Type 2 diabetes mellitus without complications (ICD-10) Surgical History (Updated 02/28/24 @ 10:36 by Joelle Goncalves NP) S/P balloon mitral valvuloplasty ?Z98.890 - Other specified postprocedural states (ICD-10) S/P mitral valve replacement with bioprosthetic valve ?Z95.3 - Presence of xenogenic heart valve (ICD-10) Family History (Updated 04/06/24 @ 02:06 by Alayna Garay RN) Other Family history of CHF (congestive heart failure) Family history of diabetes mellitus Family history of myocardial infarction Social History Within the past year, how often did you have a drink containing alcohol: never Score interpretation: A score less than 3 is consistent with normal alcohol consumption. 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 Known occupational exposures/hazards: No Highest level of school completed/degree received: high school graduate Do you want help with school or training: No Are you now , , , , never or living with a partner: never In a typical week, how many times do you talk on the telephone with family, friends, or neighbors: 3 or more times per week How often do you get together with friends or relatives: never How often do you attend jain or gnosticism services: 4 or more times per year Do you belong to any clubs or organizations such as jain groups unions, fraternal or athletic groups, or school groups: no Total score: 2 Score interpretation: A score of greater than or equal to 2 indicates the lowest level of social isolation. Little interest or pleasure in doing things: not at all Feeling down, depressed, or hopeless: not at all Feel stressed/tense/nervous/anxious/difficulty sleeping: not at all Due to disability, difficulty making decisions: No Do you think of yourself as: straight/heterosexual Gender Identity: female Meds Home Medications and Allergies Home Medications ?Medication ?Instructions ?Recorded ?Confirmed ?Type clopidogrel 75 mg tablet 75 mg PO QDAY 09/30/23 04/06/24 History gabapentin 300 mg capsule 300 mg PO Q12H 09/30/23 04/06/24 History insulin detemir U-100 100 unit/mL 40 unit subcut QPM 09/30/23 04/06/24 History (3 mL) subcutaneous pen (Levemir FlexPen) letrozole 2.5 mg tablet 2.5 mg PO Q24H 09/30/23 04/06/24 History ondansetron 4 mg disintegrating 4 mg PO Q8H PRN nausea and vomiting 09/30/23 04/06/24 History tablet pantoprazole 40 mg tablet,delayed 40 mg PO QDAY 09/30/23 04/06/24 History release sertraline 100 mg tablet 100 mg PO QAM 09/30/23 04/06/24 History sitagliptin phosphate 50 mg tablet 50 mg PO QAM 09/30/23 04/06/24 History (Januvia) trazodone 100 mg tablet 100 mg PO QPM 09/30/23 04/06/24 History metoprolol succinate 25 mg 25 mg PO DAILY 02/27/24 04/06/24 History tablet,extended release 24 hr aspirin 81 mg capsule 81 mg PO DAILY #30 caps 02/28/24 04/06/24 Rx atorvastatin 20 mg tablet 20 mg PO QPM #30 tabs 02/28/24 04/06/24 Rx insulin lispro 100 unit/mL 12 unit subcut TIDWM 04/06/24 04/06/24 History subcutaneous pen Allergies Allergy/AdvReac Type Severity Reaction Status Date / Time No Known Drug Allergies Allergy Verified 09/30/23 16:22 Exam Constitutional Vital Signs, click to edit/add: Last Vital Signs Temp 97.8 F 04/06/24 04:22 Pulse 88 04/06/24 06:48 Resp 22 H 04/06/24 06:48 BP 143/64 H 04/06/24 04:22 Pulse Ox 93 L 04/06/24 06:48 O2 Del Method Nasal Cannula 04/06/24 06:48 O2 Flow Rate 1 04/06/24 06:48 Documenting provider has reviewed patient's vital signs: yes Common normals: apparent distress (REsp distress) Exam limitations: altered mental status (Sleepy) Respiratory Common normals: abnormal respiratory effort (Persistant cough throughout eval) Auscultation: rales and rhonchi Cardio Common normals: regular rate and regular rhythm; murmurs detected Heart sounds: murmur (4/6) Results Labs Labs: Short CBC 04/05/24 04/06/24 Range/Units 21:55 03:53 WBC 12.6 H 12.8 H (4.0-11.0) 10^3/uL Hgb 9.5 L 8.9 L (12.0-16.0) g/dL Hct 30.8 L 28.9 L (36.0-48.0) % Plt Count 219 197 (150-450) 10^3/uL BMP 04/05/24 04/06/24 21:55 03:53 Sodium 138 136 Potassium 4.5 5.4 H Chloride 102 102 Carbon Dioxide 29.5 29.1 BUN 25.0 H 27.0 H Creatinine 1.58 H 1.77 H Glucose 118 H 296 H Calcium 9.0 8.7 Liver Function 04/05/24 04/06/24 Range/Units 21:55 03:53 Total Bilirubin 0.3 0.2 (0.2-1.0) mg/dL AST 18 15 (15-37) U/L ALT 16 15 (14-59) U/L Alkaline Phosphatase 87 78 (46-116) U/L Albumin 3.6 3.2 L (3.4-5.0) g/dL Urine 04/05/24 Range/Units 23:45 Urine Color Lt. yellow (YELLOW) Urine Clarity Clear (CLEAR) Urine pH 6.0 (5.0-9.0) Ur Specific [place] 1.025 (1.005-1.025) Urine Protein Trace (NEG/TRACE) mg/dL Urine Glucose (UA) Negative (NEGATIVE) mg/dL Assessment and Plan Assessment and Plan (1) Acute UTI: (2) Hypoglycemia: (3) Acute kidney injury: (4) Diabetes: Plan Respiratory distress, tachycardia, fever 103, leukocytosis, acute kidney injury (baseline creatinine of 1.24, elevated 1.77 today, last 142.7% above baseline) - secondary to bibasilar pneumonia and acute UTI resulting in sepsis. Patient transferred back to the intensive care unit due to deterioration in status. ABG with significant elevated pCO2, will place patient on Vapotherm. Can keep saturations in the low 90s. Acute hypoxic hypercapnic respiratory failure requiring high flow oxygen. Change antibiotics to Zosyn and Levaquin for broader spectrum coverage. Possible aspiration with patient having emesis. Acute UTI-antibiotics as outlined above should cover that we will check on culture tomorrow. Chronic kidney disease stage III due to uncontrolled diabetes mellitus-monitor daily. Creatinine is elevated today. Unable to give significant fluid boluses with the sepsis secondary to elevated BNP compared to admission. Possible fluid overload complicating the above picture. Hold off on echocardiogram, recent echocardiogram showed a good ejection fraction. Hyperkalemia-giving diuresis for the possible fluid overload as outlined above, likely improve hyperkalemia Valvular heart disease status post replacement-continue with medications from home Hypercholesterolemia-continue medications from home Diabetes mellitus-will use home insulin, sliding scale coverage here. Sugars elevated this morning. Hypertension by history-monitor close with sepsis as outlined above GERD-change patient to IV Protonix Depression with insomnia-continue with home medications except will hold trazodone for sedation Admission status: With sepsis as outlined above, medically necessary treatment will span more than 2 midnights. Inpatient status
[2024-04-06] MEDS: INSULIN ASPART 300 UNIT/3 ML PEN SUBQ ×4 (08:46→21:00)
[2024-04-06 08:53] LABS: pH ABG 7.312 (7.350-7.450)
[2024-04-06 08:54] LABS: Base Excess ABG -0.7 mmol/L (-2.0-2.0); HCO3 ABG 25.5 mmol/L (22.0-26.0); Oxygen Saturation ABG 94.3 %; PO2 ABG 69.4 mmHg (80.0-100.0)
[2024-04-06 08:55] LABS: Allen Test POSITIVE (POSITIVE); Liters per Minute 3.54; O2 Mode NC
[2024-04-06 08:56] LABS: Puncture Site RR
[2024-04-06 09:02] LABS: ABG PCO2 50.5 mmHg (35.0-45.0)
--- NOTE | 2024-04-06 09:48 | CM.NOTE ---
Rounds made with Dr. Lara, pt continues to c/o shortness of breath. Pt is on oxygen at this time, pt denies use of home oxygen. No discharge today. PT and OT will evaluate pt for any discharge needs.
[2024-04-06] MEDS: GABAPENTIN 300 MG CAPSULE PO ×2 (09:49→20:54)
[2024-04-06] MEDS: ASPIRIN 81 MG TABLET.DR PO (09:49)
[2024-04-06] MEDS: METOPROLOL SUCCINATE 25 MG TAB.ER.24H PO (09:49)
[2024-04-06] MEDS: SERTRALINE HCL 100 MG TABLET PO (09:49)
[2024-04-06] MEDS: CLOPIDOGREL BISULFATE 75 MG TABLET PO (09:49)
[2024-04-06] MEDS: ACETAMINOPHEN 500 MG TABLET 1000 MG PO ×2 (09:49→15:50)
[2024-04-06] MEDS: FUROSEMIDE 40 MG/4 ML VIAL 60 MG IVP (09:52)
[2024-04-06] MEDS: GUAIFENESIN 600 MG TAB.ER.12H PO ×2 (09:53→20:54)
[2024-04-06] MEDS: BENZONATATE 100 MG CAPSULE 200 MG PO ×2 (09:53→17:31)
[2024-04-06] MEDS: PANTOPRAZOLE SODIUM 40 MG VIAL IV (09:59)
[2024-04-06] MEDS: LEVOFLOXACIN IN DEXTROSE 5 % 750 MG/150 ML IV.SOLN 100 MG IV (10:36)
--- NOTE | 2024-04-06 10:56 | CM.NOTE ---
Important Message From Medicare discussed with pt, pt verbalizes understanding and signs paper. Original given to pt and copy placed on pt's chart.
--- NOTE | 2024-04-06 11:11 | CM.NOTE ---
Called [facility] for new referral, they do have bed open. Requesting information to be faxed. Faxed Case Management referral information and physician notes. Face sheet also provided with SS number, ht and wt.
--- NOTE | 2024-04-06 11:20 | SWNOTE1 ---
SW spoke to case management and pt will need to go skilled and went to [facility] in past. Case management sent referral to [facility].
--- NOTE | 2024-04-06 11:22 | SWNOTE1 ---
Pt will be a precert.
--- NOTE | 2024-04-06 11:42 | CM.NOTE ---
Ileana from [facility] called back and they are able to accept pt.
[2024-04-06 12:24] LABS: Glucometer 202 mg/dL (74-106)
[2024-04-06] MEDS: PIPERACILLIN SODIUM/TAZOBACTAM 3.375 GM in 0.9 % SODIUM CHLORIDE 50 ML IV ×2 (12:36→20:54)
[2024-04-06 13:37] LABS: ABG PCO2 46.1 mmHg (35.0-45.0); Allen Test POSITIVE (POSITIVE); Base Excess ABG 0.8 mmol/L (-2.0-2.0); HCO3 ABG 26.2 mmol/L (22.0-26.0); Oxygen Saturation ABG 98.2 %; PO2 ABG 87.7 mmHg (80.0-100.0); pH ABG 7.363 (7.350-7.450)
[2024-04-06 13:38] LABS: Fractionated Inspired Oxygen 40 %; Liters per Minute 40; O2 Mode VAPOTHERM; Puncture Site L BRACH
[2024-04-06 15:29] LABS: A. calcoaceticus-baumannii Cpx NOT DETECTED (NOT DETECTE); Bacteroides fragilis NOT DETECTED (NOT DETECTE); Candida albicans NOT DETECTED (NOT DETECTE); Candida auris NOT DETECTED (NOT DETECTE); Candida glabrata NOT DETECTED (NOT DETECTE); Candida krusei NOT DETECTED (NOT DETECTE); Candida parapsilosis NOT DETECTED (NOT DETECTE); Candida tropicalis NOT DETECTED (NOT DETECTE); Cryptococcus neoformans/gattii NOT DETECTED (NOT DETECTE); Enterobacter cloacae complex NOT DETECTED (NOT DETECTE); Enterobacterales NOT DETECTED (NOT DETECTE); Enterococcus faecalis NOT DETECTED (NOT DETECTE); Enterococcus faecium NOT DETECTED (NOT DETECTE); Haemophilus influenzae NOT DETECTED (NOT DETECTE); Klebsiella aerogenes NOT DETECTED (NOT DETECTE); Klebsiella pneumoniae group NOT DETECTED (NOT DETECTE); Listeria monocytogenes NOT DETECTED (NOT DETECTE); Neisseria meningitidis NOT DETECTED (NOT DETECTE); Proteus spp. NOT DETECTED (NOT DETECTE); Pseudomonas aeruginosa NOT DETECTED (NOT DETECTE); Salmonella spp. NOT DETECTED (NOT DETECTE); Serratia marcescens NOT DETECTED (NOT DETECTE); Staphylococcus epidermidis NOT DETECTED (NOT DETECTE); Staphylococcus lugdunensis NOT DETECTED (NOT DETECTE); Stenotrophomonas maltophilia NOT DETECTED (NOT DETECTE); Streptococcus agalactiae NOT DETECTED (NOT DETECTE); Streptococcus pneumoniae NOT DETECTED (NOT DETECTE); Streptococcus pyogenes NOT DETECTED (NOT DETECTE); Streptococcus spp. NOT DETECTED (NOT DETECTE)
--- NOTE | 2024-04-06 15:36 | CM.NOTE ---
PT notes sent to [facility].
[2024-04-06 16:42] LABS: mecA/C and MREJ (MRSA) DETECTED (NOT DETECTE)
[2024-04-06 16:43] LABS: Source BLOOD; Staphylococcus spp. DETECTED (NOT DETECTE)
[2024-04-06 16:58] LABS: Glucometer 240 mg/dL (74-106)
[2024-04-06] MEDS: LINEZOLID IN DEXTROSE 5% 600 MG/300 ML PIGGYBACK 300 MG IV (17:32)
[2024-04-06 20:17] LABS: Glucometer 192 mg/dL (74-106)
[2024-04-06] MEDS: INSULIN DETEMIR 300 UNIT/3 ML INSULN.PEN 30 UNIT SUBQ (20:54)
[2024-04-06] MEDS: ATORVASTATIN CALCIUM 20 MG TABLET PO (20:54)
[2024-04-07] VITALS (15 sets, daily range): BP systolic 82–132; BP diastolic 47–70; PULSE 65–80; TEMP 36.7–37.6; O2SAT 83–100
[2024-04-07] MEDS: PIPERACILLIN SODIUM/TAZOBACTAM 3.375 GM in 0.9 % SODIUM CHLORIDE 50 ML IV ×3 (03:33→21:08)
[2024-04-07] MEDS: IPRATROPIUM/ALBUTEROL SULFATE 3 ML AMPUL.NEB IH ×3 (04:02→23:10)
--- NOTE | 2024-04-07 04:02 | RESP.RT ---
decreased down to 1L
[2024-04-07 04:52] LABS: Basophils Percent Auto 0.2 % (0.2-2.0); Eosinophils Absolute Auto 0.1 10^3/uL (0.0-0.7); Hematocrit 24.9 % (36.0-48.0); Hemoglobin 7.6 g/dL (12.0-16.0); Immature Granulocytes Abs Auto 0.04 10^3/uL (0.00-0.03); Immature Granulocytes Pct Auto 0.4 % (0.0-0.5); Lymphocytes Absolute Auto 1.5 10^3/uL (1.2-3.8); Lymphocytes Percent Auto 14.7 % (20.5-60.0); Mean Corpuscular HGB Conc 30.5 g/dL (29.9-35.2); Mean Corpuscular Hemoglobin 27.7 pg (26.7-34.0); Mean Corpuscular Volume 90.9 fL (81.0-99.0); Mean Platelet Volume 10.4 fL (9.5-13.5); Monocytes Absolute Auto 0.8 10^3/uL (0.3-0.8); Monocytes Percent Auto 8.2 % (1.7-12.0); Neutrophils Absolute Auto 7.6 10^3/uL (1.4-6.5); Neutrophils Percent Auto 75.5 % (43.0-75.0); Platelet Count 143 10^3/uL (150-450); Red Blood Count 2.74 10^6/uL (4.20-5.40); Red Cell Distribution Width 14.9 % (11.0-15.0); White Blood Count 10.1 10^3/uL (4.0-11.0)
[2024-04-07 05:02] LABS: Alanine Aminotransferase 13 U/L (14-59); Albumin Globulin Ratio 0.8; Alkaline Phosphatase 64 U/L (46-116); Anion Gap 7.5; Aspartate Amino Transferase 15 U/L (15-37); BUN Creatinine Ratio 16.1; Bilirubin Total 0.4 mg/dL (0.2-1.0); Calcium 8.6 mg/dL (8.5-10.1); Carbon Dioxide 30.3 mmol/L (21.0-32.0); Chloride 100 mmol/L (98-107); Estimated GFR (African America 27 (>=60); Estimated GFR (Non-African Ame 22 (>=60); Globulin 3.7 g/dL; Glucose 151 mg/dL (74-106); Potassium 3.8 mmol/L (3.5-5.1); Sodium 134 mmol/L (136-145); Total Protein 6.7 g/dL (6.4-8.2)
[2024-04-07] MEDS: LINEZOLID IN DEXTROSE 5% 600 MG/300 ML PIGGYBACK 300 MG IV ×2 (06:10→17:02)
[2024-04-07] MEDS: 0.9 % SODIUM CHLORIDE 1,000 ML 250 ML IV (07:07)
[2024-04-07] MEDS: GABAPENTIN 300 MG CAPSULE PO ×2 (08:10→21:07)
[2024-04-07] MEDS: BENZONATATE 100 MG CAPSULE 200 MG PO ×2 (08:10→17:02)
[2024-04-07] MEDS: GUAIFENESIN 600 MG TAB.ER.12H PO ×2 (08:11→21:07)
[2024-04-07] MEDS: ASPIRIN 81 MG TABLET.DR PO (08:11)
[2024-04-07] MEDS: INSULIN ASPART 300 UNIT/3 ML PEN SUBQ ×3 (08:11→21:06)
[2024-04-07] MEDS: SERTRALINE HCL 100 MG TABLET PO (08:11)
[2024-04-07] MEDS: CLOPIDOGREL BISULFATE 75 MG TABLET PO (08:11)
--- NOTE | 2024-04-07 08:18 | P.PN_ITS ---
Progress Note: Subjective Subjective Interval history: Patient awake and alert and talkative this morning. No complaints except she did not sleep well. Because of her altered mental status yesterday, we had held her trazodone. Exam Constitutional Vital Signs, click to edit/add: Last Vital Signs Temp 98.7 F 04/07/24 00:00 Pulse 74 04/07/24 04:15 Resp 20 04/07/24 04:15 BP 93/47 L 04/07/24 03:47 Pulse Ox 98 04/07/24 04:02 O2 Del Method Nasal Cannula 04/07/24 04:02 O2 Flow Rate 2 04/07/24 04:02 FiO2 30 04/06/24 20:00 Documenting provider has reviewed patient's vital signs: yes Common normals: no apparent distress Chest Common normals: inspection of chest normal Respiratory Common normals: normal respiratory effort and no retractions Cardio Common normals: regular rate and regular rhythm GI Common normals: Normal to inspection, nondistended, normoactive bowel sounds present Extremity Common normals: normal to inspection and no clubbing, cyanosis or edema Progress Note: Objective Labs Labs: Short CBC 04/07/24 Range/Units 04:12 WBC 10.1 (4.0-11.0) 10^3/uL Hgb 7.6 L (12.0-16.0) g/dL Hct 24.9 L (36.0-48.0) % Plt Count 143 L (150-450) 10^3/uL BMP 04/07/24 04:12 Sodium 134 L Potassium 3.8 Chloride 100 Carbon Dioxide 30.3 BUN 35.0 H Creatinine 2.18 H Glucose 151 H Calcium 8.6 Liver Function 04/07/24 Range/Units 04:12 Total Bilirubin 0.4 (0.2-1.0) mg/dL AST 15 (15-37) U/L ALT 13 L (14-59) U/L Alkaline Phosphatase 64 (46-116) U/L Albumin 3.0 L (3.4-5.0) g/dL Progress Note: A&P Assessment and Plan (1) Acute UTI: (2) Hypoglycemia: (3) Acute kidney injury: (4) Diabetes: (5) CKD (chronic kidney disease) stage 3, GFR 30-59 ml/min: (6) CAD (coronary artery disease): (7) Peptic ulcer disease: (8) Asthma: (9) Bilateral pneumonia: (10) Fluid overload: (11) Acute hypoxic respiratory failure: Plan Admission findings: Respiratory distress, tachycardia, fever 103, leukocytosis, acute kidney injury (baseline creatinine of 1.24, elevated 1.77 today, last 142.7% above baseline) - secondary to bibasilar pneumonia and acute UTI resulting in sepsis. Patient transferred back to the intensive care unit due to deterioration in status.-Patient did well initially with Vapotherm yesterday but has been able to be weaned off of that. O2 saturations in the upper 90s on 2 L. Will work on further tapering that Acute hypoxic hypercapnic respiratory failure requiring high flow oxygen. Change antibiotics to Zosyn and linezolid yesterday because of the MRSA screen coming back positive. Awaiting cultures from urine. Unable to give sputum culture. Blood culture should be resulted tomorrow. Acute UTI-antibiotics as outlined above should cover that we will check on culture tomorrow-will follow-up later today Chronic kidney disease stage III due to uncontrolled diabetes mellitus-monitor daily. Creatinine further elevated today. She was given a dose of Lasix yesterday because appear to be fluid overloaded. 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 Not certain what her exact baseline is. Will give back a little bit of fluids today 1 L over 4 hours. See if her heart tolerates that. Hyperkalemia-giving diuresis for the possible fluid overload as outlined above, likely improve hyperkalemia Valvular heart disease status post replacement-continue with medications from home-had recent echo, did not repeat this admission Hypercholesterolemia-continue medications from home Diabetes mellitus-will use home insulin, sliding scale coverage here. Sugars continue to be elevated, will increase sliding scale Hypertension by history-monitor close with sepsis as outlined above GERD-change patient to IV Protonix Depression with insomnia-continue with home medications except will hold trazodone for sedation Admission status: With sepsis as outlined above, medically necessary treatment will span more than 2 midnights. Maintain inpatient status, likely here 2 more days pending cultures from blood that appeared to be positive. Patient may also benefit from a rehabilitation stay
--- NOTE | 2024-04-07 08:26 | CM.NOTE ---
Rounds made with Dr. Lara, no discharge today. Pt now on 2L NC oxygen, will continue to wean as tolerated. Continue IV antibiotics. No discharge today.
--- NOTE | 2024-04-07 10:03 | CM.NOTE ---
Called [facility] to speak with Ileana in admissions, message left. Updates PT, vitals, and Physician note faxed.
[2024-04-07] MEDS: PANTOPRAZOLE SODIUM 40 MG VIAL IV (10:19)
[2024-04-07 11:15] LABS: Glucometer 161 mg/dL (74-106)
--- NOTE | 2024-04-07 11:53 | CM.NOTE ---
Spoke with Ileana from [facility], precert will be started today for patient.
[2024-04-07 12:01] LABS: Basophils Percent Auto 0.2 % (0.2-2.0); Eosinophils Absolute Auto 0.2 10^3/uL (0.0-0.7); Eosinophils Percent Auto 1.2 % (0.9-7.0); Hematocrit 26.1 % (36.0-48.0); Hemoglobin 8.2 g/dL (12.0-16.0); Immature Granulocytes Abs Auto 0.06 10^3/uL (0.00-0.03); Immature Granulocytes Pct Auto 0.5 % (0.0-0.5); Lymphocytes Percent Auto 15.2 % (20.5-60.0); Mean Corpuscular HGB Conc 31.4 g/dL (29.9-35.2); Mean Corpuscular Hemoglobin 28.4 pg (26.7-34.0); Mean Corpuscular Volume 90.3 fL (81.0-99.0); Mean Platelet Volume 9.8 fL (9.5-13.5); Monocytes Absolute Auto 1.1 10^3/uL (0.3-0.8); Monocytes Percent Auto 8.5 % (1.7-12.0); Neutrophils Absolute Auto 9.6 10^3/uL (1.4-6.5); Neutrophils Percent Auto 74.4 % (43.0-75.0); Platelet Count 156 10^3/uL (150-450); Red Blood Count 2.89 10^6/uL (4.20-5.40); Red Cell Distribution Width 14.8 % (11.0-15.0); White Blood Count 12.9 10^3/uL (4.0-11.0)
--- NOTE | 2024-04-07 14:16 | CM.NOTE ---
HENS completed online for skilled facility.
[2024-04-07 17:04] LABS: Glucometer 123 mg/dL (74-106)
[2024-04-07 19:44] LABS: Glucometer 276 mg/dL (74-106)
[2024-04-07] MEDS: ATORVASTATIN CALCIUM 20 MG TABLET PO (21:07)
[2024-04-07] MEDS: INSULIN DETEMIR 300 UNIT/3 ML INSULN.PEN 30 UNIT SUBQ (21:07)
[2024-04-07] MEDS: TRAZODONE HCL 50 MG TABLET 100 MG PO (21:07)
[2024-04-07] MEDS: 0.9 % SODIUM CHLORIDE 250 ML 10 ML IV (21:08)
[2024-04-08] VITALS (12 sets, daily range): BP systolic 99–140; BP diastolic 55–76; PULSE 69–110; TEMP 36.2–37.2; O2SAT 88–98
[2024-04-08] MEDS: BENZONATATE 100 MG CAPSULE 200 MG PO ×3 (01:01→17:11)
[2024-04-08 05:02] LABS: Basophils Percent Auto 0.2 % (0.2-2.0); Eosinophils Absolute Auto 0.3 10^3/uL (0.0-0.7); Eosinophils Percent Auto 2.6 % (0.9-7.0); Hematocrit 25.4 % (36.0-48.0); Hemoglobin 7.8 g/dL (12.0-16.0); Immature Granulocytes Abs Auto 0.05 10^3/uL (0.00-0.03); Immature Granulocytes Pct Auto 0.5 % (0.0-0.5); Lymphocytes Absolute Auto 1.5 10^3/uL (1.2-3.8); Lymphocytes Percent Auto 13.8 % (20.5-60.0); Mean Corpuscular HGB Conc 30.7 g/dL (29.9-35.2); Mean Corpuscular Hemoglobin 28.1 pg (26.7-34.0); Mean Corpuscular Volume 91.4 fL (81.0-99.0); Mean Platelet Volume 10.3 fL (9.5-13.5); Monocytes Absolute Auto 1.2 10^3/uL (0.3-0.8); Monocytes Percent Auto 10.8 % (1.7-12.0); Neutrophils Absolute Auto 7.7 10^3/uL (1.4-6.5); Neutrophils Percent Auto 72.1 % (43.0-75.0); Platelet Count 172 10^3/uL (150-450); Red Blood Count 2.78 10^6/uL (4.20-5.40); Red Cell Distribution Width 14.8 % (11.0-15.0); White Blood Count 10.7 10^3/uL (4.0-11.0)
[2024-04-08] MEDS: LINEZOLID IN DEXTROSE 5% 600 MG/300 ML PIGGYBACK 300 MG IV ×2 (05:07→17:10)
[2024-04-08] MEDS: PIPERACILLIN SODIUM/TAZOBACTAM 3.375 GM in 0.9 % SODIUM CHLORIDE 50 ML IV ×3 (05:07→20:35)
[2024-04-08] MEDS: IPRATROPIUM/ALBUTEROL SULFATE 3 ML AMPUL.NEB IH ×4 (05:23→23:10)
[2024-04-08 05:52] LABS: Alanine Aminotransferase 18 U/L (14-59); Albumin Globulin Ratio 0.7; Albumin Level 2.8 g/dL (3.4-5.0); Alkaline Phosphatase 62 U/L (46-116); Anion Gap 8.3; Aspartate Amino Transferase 16 U/L (15-37); BUN Creatinine Ratio 12.9; Bilirubin Total 0.4 mg/dL (0.2-1.0); Calcium 8.4 mg/dL (8.5-10.1); Carbon Dioxide 31.8 mmol/L (21.0-32.0); Chloride 105 mmol/L (98-107); Estimated GFR (African America 33 (>=60); Estimated GFR (Non-African Ame 28 (>=60); Globulin 4.1 g/dL; Glucose 100 mg/dL (74-106); Potassium 4.1 mmol/L (3.5-5.1); Sodium 141 mmol/L (136-145); Total Protein 6.9 g/dL (6.4-8.2)
--- NOTE | 2024-04-08 08:03 | PM.PN ---
Progress Note: Subjective Subjective Interval history: Patient is sitting in chair. oxygen NC in place. Patient reports she slept well last night and feels better than yesterday. Still short of breath at times. Cough that is not productive. No fevers or chills. No other reported complaints or issues. Exam Narrative Exam Narrative: General: Patient is alert, and oriented to person, place and time with normal affect, proper hygiene Skin: no visible rashes, or ulcers Head: atraumatic, acephalic Eyes: PERRLA, no nystagmus present, conjunctiva clear, no scleral icterus Heart: Normal rate and rhythm, no murmurs/rubs/gallops Lungs: no audible wheezes, crackles and diminished breath sounds bilateral lower lung bases Abdomen: Normal audible bowel sounds, no distension, No palpable masses, no organomegaly, no rebound/guarding/ or rigidity Musculoskeletal: no swelling bilateral lower extremities Neuro: CN II-X grossly intact Constitutional Vital Signs, click to edit/add: Last Vital Signs Temp 97.6 F 04/08/24 04:00 Pulse 75 04/08/24 05:24 Resp 20 04/08/24 05:24 BP 104/62 04/08/24 04:00 Pulse Ox 93 L 04/08/24 05:24 O2 Del Method Nasal Cannula 04/08/24 05:24 O2 Flow Rate 1 04/08/24 05:24 FiO2 30 04/06/24 20:00 Progress Note: Objective Labs Labs: Short CBC 04/07/24 04/08/24 Range/Units 11:54 04:46 WBC 12.9 H 10.7 (4.0-11.0) 10^3/uL Hgb 8.2 L 7.8 L (12.0-16.0) g/dL Hct 26.1 L 25.4 L (36.0-48.0) % Plt Count 156 172 (150-450) 10^3/uL BMP 04/08/24 04:46 Sodium 141 Potassium 4.1 Chloride 105 Carbon Dioxide 31.8 BUN 23.0 H Creatinine 1.78 H Glucose 100 Calcium 8.4 L Liver Function 04/08/24 Range/Units 04:46 Total Bilirubin 0.4 (0.2-1.0) mg/dL AST 16 (15-37) U/L ALT 18 (14-59) U/L Alkaline Phosphatase 62 (46-116) U/L Albumin 2.8 L (3.4-5.0) g/dL Progress Note: A&P Assessment and Plan (1) Bilateral pneumonia: Assessment and Plan: blood cultures positive for staph aureus, continue linezolid and zosyn. Awaiting sensitivites. continue OPEP, duonebs. WBC's improving, requiring less oxygen to maintain sats. Qualifiers: Pneumonia type: due to methicillin-resistant Staphylococcus aureus (MRSA) Lung location: unspecified part of lung Qualified Code(s): J15.212 - Pneumonia due to Methicillin resistant Staphylococcus aureus (2) Acute hypoxic respiratory failure: Assessment and Plan: secondary to #1, continue oxygen therapy and titrate as needed. (3) Staphylococcus aureus bacteremia: Assessment and Plan: continue linezolid, patient with picc (4) E-coli UTI: Assessment and Plan: continue Zosyn. awaiting sensitivities. (5) Acute kidney injury: Assessment and Plan: baseline chronic but Cr improving with gentle hydration. Patient also has history of CHF so use fluids sparingly. Cr 1.78 today down 2.18 (6) Diabetes: Assessment and Plan: continue long acting Levemir, SSI as needed. 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: with termite control technician use Diabetes mellitus complication status: with kidney complications Diabetes mellitus complication detail: with chronic kidney disease Chronic kidney disease stage: stage 3 (moderate) Chronic kidney disease stage 3 subtype: stage 3b (GFR 30-44) Qualified Code(s): E11.22 - Type 2 diabetes mellitus with diabetic chronic kidney disease; N18.32 - Chronic kidney disease, stage 3b; Z79.4 - termite control service representative (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 (7) CKD (chronic kidney disease) stage 3, GFR 30-59 ml/min: (8) CAD (coronary artery disease): Assessment and Plan: continue lipitor, aspirin/plavix (9) Asthma: Assessment and Plan: continue duonebs and OPEP (10) Hypertension: Assessment and Plan: continue to monitor (11) GERD (gastroesophageal reflux disease): Assessment and Plan: continue protonix (12) Breast CA: Assessment and Plan: continue letrozole Plan patient is a full code continue aspirin/plavix patient will still need 2-3 days of hospital necessary care. awaiting culture sensitivities
--- NOTE | 2024-04-08 09:09 | PT.DAILY ---
Physical Therapy Daily Note PT Daily Note/Assess Start: 04/07/24 10:58 Freq: Status: Active Protocol: Document 04/08/24 08:58 ANGELA (Rec: 04/08/24 09:09 JOSE LUISCHARLOTTE [id number]) Physical Therapy Daily Note/Assessment Time In/Time Out Time In 08:35 Time Out 08:55 Pain In Pain N/A Pain Out Pain N/A Subjective Subjective Pt sitting in BS chair upon arrival. Agrees to PT. Reports the night went well. Pt is on 1L O2 this morning through NC . Therapeutic Exercise Time Therapeutic Exercise Minutes (minutes) 5 Therapeutic Exercise Units 0 Therapeutic Exercise Treatment Therapeutic Exercise Treatment Seated bilat AP, LAQ, marches, abd step outs and add squeezes with pillow 10x ea to improve LE strength and mobility prior to transfers/ gait. Therapeutic Activity Time Therapeutic Activity Minutes (minutes) 8 Therapeutic Activity Units 1 Therapeutic Activity Treatment Chair Transfer Ability Minimum Assist Therapeutic Activity Comments Sit>stand from BS chair to RW Wendie to reach standing. Pt static stands 20 sec without LOB. f-b gait 5'x4 before needing seated rest break. SpO2 93-95% upon completion HR 115. (pt reports just finishing breathing treatment before my arrival) Sit>stand again Wendie and amb f-b 5'x6 this time, CGA. Returned to BS chair upon completion with call light within reach. Min SOB noticed. Spo2 94%. Total Physical Therapy Time Total Therapy Minutes 13 Total Physical Therapy Units 1 Summary Daily Note Summary Cont to require Wendie with transfers due to LE weakness. Pt was quickly fatigued with activity today but O2 levels stayed above 90% with 1L of supplemental O2. Would benefit from SNF to return to [place].
[2024-04-08] MEDS: CLOPIDOGREL BISULFATE 75 MG TABLET PO (09:13)
[2024-04-08] MEDS: ASPIRIN 81 MG TABLET.DR PO (09:13)
[2024-04-08] MEDS: SERTRALINE HCL 100 MG TABLET PO (09:13)
[2024-04-08] MEDS: GABAPENTIN 300 MG CAPSULE PO ×2 (09:13→20:34)
[2024-04-08] MEDS: GUAIFENESIN 600 MG TAB.ER.12H PO ×2 (09:45→20:34)
[2024-04-08] MEDS: PANTOPRAZOLE SODIUM 40 MG VIAL IV (11:01)
[2024-04-08 11:21] LABS: Glucometer 233 mg/dL (74-106)
[2024-04-08] MEDS: INSULIN ASPART 300 UNIT/3 ML PEN SUBQ ×2 (11:26→21:23)
[2024-04-08 16:22] LABS: Glucometer 185 mg/dL (74-106)
[2024-04-08] MEDS: ATORVASTATIN CALCIUM 20 MG TABLET PO (20:34)
[2024-04-08] MEDS: INSULIN DETEMIR 300 UNIT/3 ML INSULN.PEN 30 UNIT SUBQ (20:37)
[2024-04-08 20:48] LABS: Glucometer 310 mg/dL (74-106)
[2024-04-08] MEDS: TRAZODONE HCL 50 MG TABLET 100 MG PO (21:23)
[2024-04-09] VITALS (10 sets, daily range): BP systolic 115–156; BP diastolic 67–85; PULSE 85–106; TEMP 36.5–37.5; O2SAT 90–92
[2024-04-09] MEDS: BENZONATATE 100 MG CAPSULE 200 MG PO ×3 (00:39→16:37)
[2024-04-09 04:42] LABS: Basophils Percent Auto 0.3 % (0.2-2.0); Eosinophils Absolute Auto 0.5 10^3/uL (0.0-0.7); Eosinophils Percent Auto 4.7 % (0.9-7.0); Hemoglobin 8.5 g/dL (12.0-16.0); Immature Granulocytes Abs Auto 0.04 10^3/uL (0.00-0.03); Immature Granulocytes Pct Auto 0.4 % (0.0-0.5); Lymphocytes Absolute Auto 1.8 10^3/uL (1.2-3.8); Lymphocytes Percent Auto 18.1 % (20.5-60.0); Mean Corpuscular HGB Conc 31.5 g/dL (29.9-35.2); Mean Corpuscular Hemoglobin 28.4 pg (26.7-34.0); Mean Corpuscular Volume 90.3 fL (81.0-99.0); Monocytes Percent Auto 10.5 % (1.7-12.0); Neutrophils Absolute Auto 6.4 10^3/uL (1.4-6.5); Platelet Count 182 10^3/uL (150-450); Red Blood Count 2.99 10^6/uL (4.20-5.40); Red Cell Distribution Width 14.8 % (11.0-15.0); White Blood Count 9.7 10^3/uL (4.0-11.0)
[2024-04-09 04:57] LABS: Alanine Aminotransferase 18 U/L (14-59); Albumin Globulin Ratio 0.7; Albumin Level 2.9 g/dL (3.4-5.0); Alkaline Phosphatase 63 U/L (46-116); Anion Gap 7.8; Aspartate Amino Transferase 15 U/L (15-37); Bilirubin Total 0.5 mg/dL (0.2-1.0); Carbon Dioxide 35.2 mmol/L (21.0-32.0); Chloride 105 mmol/L (98-107); Estimated GFR (African America 40 (>=60); Estimated GFR (Non-African Ame 33 (>=60); Globulin 4.4 g/dL; Glucose 61 mg/dL (74-106); Sodium 144 mmol/L (136-145); Total Protein 7.3 g/dL (6.4-8.2)
[2024-04-09] MEDS: IPRATROPIUM/ALBUTEROL SULFATE 3 ML AMPUL.NEB IH ×3 (05:33→16:43)
[2024-04-09] MEDS: LINEZOLID IN DEXTROSE 5% 600 MG/300 ML PIGGYBACK 300 MG IV (05:45)
[2024-04-09] MEDS: PIPERACILLIN SODIUM/TAZOBACTAM 3.375 GM in 0.9 % SODIUM CHLORIDE 50 ML IV (05:45)
[2024-04-09 07:35] LABS: Glucometer 106 mg/dL (74-106)
[2024-04-09] MEDS: 0.9 % SODIUM CHLORIDE 250 ML 10 ML IV (07:36)
--- NOTE | 2024-04-09 07:44 | PM.PN ---
Progress Note: Subjective Subjective Interval history: Patient is resting in bed, no longer requiring oxygen. Patient reports she slept well last night and feels better than yesterday. no short of breath. Cough has improved and is not productive. No fevers or chills. No other reported complaints or issues. Exam Narrative Exam Narrative: General: Patient is alert, and oriented to person, place and time with normal affect, proper hygiene Skin: no visible rashes, or ulcers Head: atraumatic, acephalic Eyes: PERRLA, no nystagmus present, conjunctiva clear, no scleral icterus Heart: Normal rate and rhythm, no murmurs/rubs/gallops Lungs: no audible wheezes, crackles and diminished breath sounds bilateral lower lung bases Abdomen: Normal audible bowel sounds, no distension, No palpable masses, no organomegaly, no rebound/guarding/ or rigidity Musculoskeletal: no swelling bilateral lower extremities Neuro: CN II-X grossly intact Constitutional Vital Signs, click to edit/add: Last Vital Signs Temp 98.6 F 04/09/24 07:38 Pulse 103 H 04/09/24 07:38 Resp 18 04/09/24 07:38 BP 134/69 04/09/24 07:38 Pulse Ox 91 L 04/09/24 07:38 O2 Del Method Room Air 04/09/24 07:38 O2 Flow Rate 1 04/08/24 10:43 FiO2 30 04/06/24 20:00 Progress Note: Objective Labs Labs: Short CBC 04/09/24 Range/Units 04:20 WBC 9.7 (4.0-11.0) 10^3/uL Hgb 8.5 L (12.0-16.0) g/dL Hct 27.0 L (36.0-48.0) % Plt Count 182 (150-450) 10^3/uL BMP 04/09/24 04:20 Sodium 144 Potassium 4.0 Chloride 105 Carbon Dioxide 35.2 H BUN 17.0 Creatinine 1.54 H Glucose 61 L Calcium 9.0 Liver Function 04/09/24 Range/Units 04:20 Total Bilirubin 0.5 (0.2-1.0) mg/dL AST 15 (15-37) U/L ALT 18 (14-59) U/L Alkaline Phosphatase 63 (46-116) U/L Albumin 2.9 L (3.4-5.0) g/dL Progress Note: A&P Assessment and Plan (1) Bilateral pneumonia: Assessment and Plan: blood cultures positive for staph aureus, stop linezolid and zosyn. start levaquin today. continue OPEP, duonebs. WBC's improving, no longer requiring oxygen to maintain sats. Qualifiers: Lung location: unspecified part of lung Pneumonia type: due to methicillin-resistant Staphylococcus aureus (MRSA) Qualified Code(s): J15.212 - Pneumonia due to Methicillin resistant Staphylococcus aureus (2) Acute hypoxic respiratory failure: Assessment and Plan: resolved, secondary to #1 (3) Staphylococcus aureus bacteremia: Assessment and Plan: Start levaquin as sensitive to this, patient with picc (4) E-coli UTI: Assessment and Plan: start levaquin. (5) Acute kidney injury: Assessment and Plan: baseline chronic but Cr improving with gentle hydration. Patient also has history of CHF so use fluids sparingly. Cr 1.54 today down 2.18 (6) Diabetes: Assessment and Plan: continue long acting Levemir, SSI as needed. Qualifiers: Chronic kidney disease stage: stage 3 (moderate) Chronic kidney disease stage 3 subtype: stage 3b (GFR 30-44) Diabetes mellitus complication detail: with chronic kidney disease Diabetes mellitus complication status: with kidney complications Diabetes mellitus superintendent marine oil terminal insulin use: with senior care use Diabetes mellitus type: type 2 Qualified Code(s): E11.22 - Type 2 diabetes mellitus with diabetic chronic kidney disease; N18.32 - Chronic kidney disease, stage 3b; Z79.4 - [facility] (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 (7) CKD (chronic kidney disease) stage 3, GFR 30-59 ml/min: (8) CAD (coronary artery disease): Assessment and Plan: continue lipitor, aspirin/plavix (9) Asthma: Assessment and Plan: continue duonebs and OPEP (10) Hypertension: Assessment and Plan: continue to monitor (11) GERD (gastroesophageal reflux disease): Assessment and Plan: continue protonix (12) Breast CA: Assessment and Plan: continue letrozole Plan patient is a full code continue aspirin/plavix patient will still need 1-2 days of hospital necessary care
[2024-04-09] MEDS: CLOPIDOGREL BISULFATE 75 MG TABLET PO (09:05)
[2024-04-09] MEDS: ASPIRIN 81 MG TABLET.DR PO (09:05)
[2024-04-09] MEDS: GABAPENTIN 300 MG CAPSULE PO ×2 (09:05→21:44)
[2024-04-09] MEDS: SERTRALINE HCL 100 MG TABLET PO (09:05)
[2024-04-09] MEDS: GUAIFENESIN 600 MG TAB.ER.12H PO ×2 (09:06→21:53)
[2024-04-09] MEDS: PANTOPRAZOLE SODIUM 40 MG VIAL IV (09:36)
[2024-04-09] MEDS: LEVOFLOXACIN IN DEXTROSE 5 % 500 MG/100 ML PIGGYBACK 100 MG IV (09:36)
[2024-04-09 11:33] LABS: Glucometer 229 mg/dL (74-106)
[2024-04-09] MEDS: INSULIN ASPART 300 UNIT/3 ML PEN SUBQ ×3 (11:37→21:45)
[2024-04-09 16:19] LABS: Glucometer 156 mg/dL (74-106)
[2024-04-09] MEDS: INSULIN DETEMIR 300 UNIT/3 ML INSULN.PEN 30 UNIT SUBQ (21:42)
[2024-04-09 21:43] LABS: Glucometer 183 mg/dL (74-106)
[2024-04-09] MEDS: TRAZODONE HCL 50 MG TABLET 100 MG PO (21:43)
[2024-04-09] MEDS: ATORVASTATIN CALCIUM 20 MG TABLET PO (21:43)
[2024-04-10] VITALS (11 sets, daily range): BP systolic 102–153; BP diastolic 63–76; PULSE 71–102; TEMP 36.3–38.1; O2SAT 91–95
[2024-04-10] MEDS: BENZONATATE 100 MG CAPSULE 200 MG PO ×3 (00:08→18:02)
[2024-04-10 06:14] LABS: Basophils Absolute Auto 0.1 10^3/uL (0.0-0.1); Basophils Percent Auto 0.6 % (0.2-2.0); Eosinophils Absolute Auto 0.7 10^3/uL (0.0-0.7); Eosinophils Percent Auto 8.7 % (0.9-7.0); Hematocrit 25.8 % (36.0-48.0); Hemoglobin 8.2 g/dL (12.0-16.0); Immature Granulocytes Abs Auto 0.04 10^3/uL (0.00-0.03); Immature Granulocytes Pct Auto 0.5 % (0.0-0.5); Lymphocytes Absolute Auto 1.7 10^3/uL (1.2-3.8); Lymphocytes Percent Auto 20.8 % (20.5-60.0); Mean Corpuscular HGB Conc 31.8 g/dL (29.9-35.2); Mean Corpuscular Hemoglobin 28.7 pg (26.7-34.0); Mean Corpuscular Volume 90.2 fL (81.0-99.0); Mean Platelet Volume 10.4 fL (9.5-13.5); Monocytes Percent Auto 11.8 % (1.7-12.0); Neutrophils Absolute Auto 4.7 10^3/uL (1.4-6.5); Neutrophils Percent Auto 57.6 % (43.0-75.0); Platelet Count 206 10^3/uL (150-450); Red Blood Count 2.86 10^6/uL (4.20-5.40); White Blood Count 8.2 10^3/uL (4.0-11.0)
[2024-04-10 06:31] LABS: Alanine Aminotransferase 22 U/L (14-59); Albumin Globulin Ratio 0.6; Albumin Level 2.7 g/dL (3.4-5.0); Alkaline Phosphatase 65 U/L (46-116); Anion Gap 8.5; Aspartate Amino Transferase 19 U/L (15-37); BUN Creatinine Ratio 10.1; Bilirubin Total 0.5 mg/dL (0.2-1.0); Calcium 8.9 mg/dL (8.5-10.1); Carbon Dioxide 33.6 mmol/L (21.0-32.0); Chloride 106 mmol/L (98-107); Estimated GFR (African America 36 (>=60); Estimated GFR (Non-African Ame 30 (>=60); Globulin 4.3 g/dL; Glucose 56 mg/dL (74-106); Potassium 4.1 mmol/L (3.5-5.1); Sodium 144 mmol/L (136-145)
[2024-04-10 07:21] LABS: Glucometer 65 mg/dL (74-106)
--- NOTE | 2024-04-10 08:39 | PM.PN ---
Progress Note: Subjective Subjective Interval history: Patient is resting comfortably in chair. no short of breath. Cough has improved and is not productive. No fevers or chills. No other reported complaints or issues. Did say her sugar was low this morning. She notes she takes 20 units of levemir at night time at home, she has been receiving 30 units here. I have decreased levemir to 20 units starting today. Exam Narrative Exam Narrative: General: Patient is alert, and oriented to person, place and time with normal affect, proper hygiene Skin: no visible rashes, or ulcers Head: atraumatic, acephalic Eyes: PERRLA, no nystagmus present, conjunctiva clear, no scleral icterus Heart: Normal rate and rhythm, no murmurs/rubs/gallops Lungs: no audible wheezes, crackles and normal breath sounds Abdomen: Normal audible bowel sounds, no distension, No palpable masses, no organomegaly, no rebound/guarding/ or rigidity Musculoskeletal: no swelling bilateral lower extremities Neuro: CN II-X grossly intact Constitutional Vital Signs, click to edit/add: Last Vital Signs Temp 97.4 F L 04/10/24 07:32 Pulse 90 04/10/24 07:49 Resp 18 04/10/24 07:49 BP 153/68 H 04/10/24 07:32 Pulse Ox 92 L 04/10/24 07:32 O2 Del Method Room Air 04/10/24 07:32 O2 Flow Rate 1 04/08/24 10:43 FiO2 30 04/06/24 20:00 Progress Note: Objective Labs Labs: Short CBC 04/10/24 Range/Units 04:48 WBC 8.2 (4.0-11.0) 10^3/uL Hgb 8.2 L (12.0-16.0) g/dL Hct 25.8 L (36.0-48.0) % Plt Count 206 (150-450) 10^3/uL BMP 04/10/24 04:48 Sodium 144 Potassium 4.1 Chloride 106 Carbon Dioxide 33.6 H BUN 17.0 Creatinine 1.68 H Glucose 56 L Calcium 8.9 Liver Function 04/10/24 Range/Units 04:48 Total Bilirubin 0.5 (0.2-1.0) mg/dL AST 19 (15-37) U/L ALT 22 (14-59) U/L Alkaline Phosphatase 65 (46-116) U/L Albumin 2.7 L (3.4-5.0) g/dL Progress Note: A&P Assessment and Plan (1) Bilateral pneumonia: Assessment and Plan: blood cultures positive for staph aureus, continue levaquin . continue OPEP, duonebs. WBC's improving, no longer requiring oxygen to maintain sats. Qualifiers: Lung location: unspecified part of lung Pneumonia type: due to methicillin-resistant Staphylococcus aureus (MRSA) Qualified Code(s): J15.212 - Pneumonia due to Methicillin resistant Staphylococcus aureus (2) Staphylococcus aureus bacteremia: Assessment and Plan: continue levaquin as sensitive to this, patient with picc (3) E-coli UTI: Assessment and Plan: continue levaquin (4) Acute kidney injury: Assessment and Plan: Cr improving with gentle hydration. Patient also has history of CHF so use fluids sparingly. 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: with local company intermodal truck driver use Diabetes mellitus type: type 2 Qualified Code(s): E11.22 - Type 2 diabetes mellitus with diabetic chronic kidney disease; N18.32 - Chronic kidney disease, stage 3b; Z79.4 - terminal makeup operator (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 (6) CKD (chronic kidney disease) stage 3, GFR 30-59 ml/min: (7) CAD (coronary artery disease): Assessment and Plan: continue lipitor, aspirin/plavix (8) Asthma: Assessment and Plan: continue duonebs and OPEP (9) Hypertension: Assessment and Plan: stable, continue to monitor (10) GERD (gastroesophageal reflux disease): Assessment and Plan: continue protonix (11) Breast CA: Assessment and Plan: continue letrozole Plan patient is a full code continue aspirin/plavix hopeful discharge tomorrow, awaiting discharge planning from case management
[2024-04-10] MEDS: LEVOFLOXACIN IN DEXTROSE 5 % 250 MG/50 ML PIGGYBACK 50 MG IV (09:08)
[2024-04-10] MEDS: PANTOPRAZOLE SODIUM 40 MG VIAL IV (09:09)
[2024-04-10] MEDS: ASPIRIN 81 MG TABLET.DR PO (09:09)
[2024-04-10] MEDS: CLOPIDOGREL BISULFATE 75 MG TABLET PO (09:09)
[2024-04-10] MEDS: GUAIFENESIN 600 MG TAB.ER.12H PO ×2 (09:09→21:11)
[2024-04-10] MEDS: SERTRALINE HCL 100 MG TABLET PO (09:09)
[2024-04-10] MEDS: GABAPENTIN 300 MG CAPSULE PO ×2 (09:09→21:11)
--- NOTE | 2024-04-10 10:12 | PT.DAILY ---
Physical Therapy Daily Note PT Daily Note/Assess Start: 04/07/24 10:58 Freq: Status: Active Protocol: Document 04/10/24 10:06 ANGELA (Rec: 04/10/24 10:12 ANGELA [id number]) Physical Therapy Daily Note/Assessment Time In/Time Out Time In 09:04 Time Out 09:30 Pain Out Pain N/A Subjective Subjective Pt supine upon arrival. Agrees to PT. Would like to get into chair. Reports having another episode last night but glad to you me. Therapeutic Exercise Time Therapeutic Exercise Minutes (minutes) 5 Therapeutic Exercise Units 0 Therapeutic Exercise Treatment Therapeutic Exercise Treatment Bilat LE strengthening ex are complete while sitting in BS chair 10x ea. Therapeutic Activity Time Therapeutic Activity Minutes (minutes) 20 Therapeutic Activity Units 2 Therapeutic Activity Treatment Bed Mobility Ability Minimum Assist Chair Transfer Ability Minimum Assist Therapeutic Activity Comments Pt needs assisted unhooking purewick. Pt then transfers from supine>sit with Aretha on this date to advance upper body. Sits EOB while gown is changed, washes face, and brushes hair with set up needed. Pt demonstrates fair- sitting balance due to occ posterior LOB with Aretha to correct. Pt beings to urinate while sitting at EOB. Sit> stand Aretha. Static standing 30 sec as pericare is performed and brief is donned. Pt amb 6' to BS chair with RW, CGA for safety. Spo2 89% upon completion on room air, 94% after 10 sec recovery. Pt completes seated ex in BS chair as bed is changed and floor is cleaned. Remains in BS chair upon completion with call light in reach and needs met. Total Physical Therapy Time Total Therapy Minutes 25 Total Physical Therapy Units 2 Summary Daily Note Summary Easily fatigued with functional mobility today. Pt would benefit from SNF to return to PLOF.
[2024-04-10] MEDS: IPRATROPIUM/ALBUTEROL SULFATE 3 ML AMPUL.NEB IH ×2 (10:36→16:49)
[2024-04-10 11:02] LABS: Glucometer 137 mg/dL (74-106)
[2024-04-10 16:01] LABS: Glucometer 191 mg/dL (74-106)
[2024-04-10] MEDS: INSULIN ASPART 300 UNIT/3 ML PEN SUBQ ×2 (16:03→21:13)
[2024-04-10] MEDS: ACETAMINOPHEN 500 MG TABLET 1000 MG PO (19:45)
[2024-04-10 20:38] LABS: Glucometer 212 mg/dL (74-106)
[2024-04-10] MEDS: TRAZODONE HCL 50 MG TABLET 100 MG PO (21:11)
[2024-04-10] MEDS: ATORVASTATIN CALCIUM 20 MG TABLET PO (21:11)
[2024-04-10] MEDS: INSULIN DETEMIR 300 UNIT/3 ML INSULN.PEN 20 UNIT SUBQ (21:12)
[2024-04-11 04:00] VITALS: BP 137/82; PULSE 79; TEMP 36.6; O2SAT 91
[2024-04-11 04:59] VITALS: PULSE 77; O2SAT 92
[2024-04-11] MEDS: IPRATROPIUM/ALBUTEROL SULFATE 3 ML AMPUL.NEB IH (04:59)
[2024-04-11 07:15] LABS: Glucometer 93 mg/dL (74-106)
--- NOTE | 2024-04-11 07:58 | CM.NOTE ---
2nd Important Message From Medicare discussed with pt, denies any questions or concerns.
[2024-04-11 08:03] VITALS: BP 150/75; PULSE 100; TEMP 36.8; O2SAT 91
--- NOTE | 2024-04-11 08:36 | CM.NOTE ---
Updates sent to [facility]. PT notes, physician progress notes & vitals.
[2024-04-11] MEDS: ASPIRIN 81 MG TABLET.DR PO (08:55)
[2024-04-11] MEDS: GABAPENTIN 300 MG CAPSULE PO (08:55)
[2024-04-11] MEDS: CLOPIDOGREL BISULFATE 75 MG TABLET PO (08:56)
[2024-04-11] MEDS: LEVOFLOXACIN IN DEXTROSE 5 % 250 MG/50 ML PIGGYBACK 10 MG IV (08:56)
[2024-04-11] MEDS: SERTRALINE HCL 100 MG TABLET PO (08:56)
[2024-04-11] MEDS: BENZONATATE 100 MG CAPSULE 200 MG PO (08:56)
[2024-04-11] MEDS: GUAIFENESIN 600 MG TAB.ER.12H PO (08:56)
--- NOTE | 2024-04-11 08:57 | P.PN_ITS ---
Progress Note: Subjective Subjective Interval history: Patient is resting comfortably in chair. no short of breath. Cough has improved and is not productive. No fevers or chills. No other reported complaints or issues. Did say her sugar was low this morning. She notes she takes 20 units of levemir at night time at home, she has been receiving 30 units here. I have decreased levemir to 20 units starting today. Exam Constitutional Vital Signs, click to edit/add: Last Vital Signs Temp 98.2 F 04/11/24 08:03 Pulse 100 H 04/11/24 08:03 Resp 18 04/11/24 08:05 BP 150/75 H 04/11/24 08:03 Pulse Ox 91 L 04/11/24 08:03 O2 Del Method Room Air 04/11/24 08:03 O2 Flow Rate 1 04/08/24 10:43 FiO2 30 04/06/24 20:00 Progress Note: A&P Assessment and Plan (1) Bilateral pneumonia: Qualifiers: Pneumonia type: due to methicillin-resistant Staphylococcus aureus (MRSA) Lung location: unspecified part of lung Qualified Code(s): J15.212 - Pneumonia due to Methicillin resistant Staphylococcus aureus (2) Staphylococcus aureus bacteremia: (3) E-coli UTI: (4) Acute kidney injury: (5) Diabetes: Qualifiers: Diabetes mellitus type: type 2 Diabetes mellitus exterminator helper termite insulin use: with exterminator helper termite use Diabetes mellitus complication status: with kidney complications Diabetes mellitus complication detail: with chronic kidney disease Chronic kidney disease stage: stage 3 (moderate) Chronic kidney disease stage 3 subtype: stage 3b (GFR 30-44) Qualified Code(s): E11.22 - Type 2 diabetes mellitus with diabetic chronic kidney disease; N18.32 - Chronic kidney disease, stage 3b; Z79.4 - equipment operator intermodal yard (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 (6) CKD (chronic kidney disease) stage 3, GFR 30-59 ml/min: (7) CAD (coronary artery disease): (8) Asthma: (9) Hypertension: (10) GERD (gastroesophageal reflux disease): (11) Breast CA:
[2024-04-11] MEDS: PANTOPRAZOLE SODIUM 40 MG VIAL IV (09:53)
--- NOTE | 2024-04-11 10:03 | SWNOTE1 ---
SW received call from Oneyda at [facility] and pt is approved to go. SW notified case management that is with doctor.
--- NOTE | 2024-04-11 10:17 | CM.NOTE ---
2nd Notice of Important Message From Medicare discussed with pt, pt denies any questions or concerns.
--- NOTE | 2024-04-11 10:52 | SWNOTE1 ---
HUBERT received call from trips and they have openings all day today. HUBERT went ahead and set up transport for pt since she is dc today. HUBERT set it up for 1-1:30. HUBERT notified nursing.
[2024-04-11 10:59] LABS: Glucometer 229 mg/dL (74-106)
[2024-04-11 11:04] VITALS: O2SAT 91
--- NOTE | 2024-04-11 11:14 | REH.PTDLY ---
Physical Therapy Daily Note PT Daily Note/Assess Start: 04/07/24 10:58 Freq: Status: Active Protocol: Document 04/11/24 11:08 [facility] (Rec: 04/11/24 11:13 [facility] Laptop) Physical Therapy Daily Note/Assessment Time In 09:57 Time Out 10:10 Subjective No new complaints, pt is up in chair. Reports she wants to leave today. Therapeutic Exercise Minutes (minutes) 5 Therapeutic Exercise Units 0 Therapeutic Exercise Treatment Instructed in B LE seated exs 10-15x ea for improved strength with exs including AP , LAQ, marching, hip abd, and hip add squeezes. Therapeutic Activity Minutes (minutes) 8 Therapeutic Activity Units 1 Chair Transfer Ability Moderate Assist Therapeutic Activity Comments Pt requires Mod A with max verbal cues for technique to stand up from chair. Once standing utilized RW for pt to ambulate 15 feet CGA for safety. Cues when returning to sit to reach for chair. Total Therapy Minutes 13 Total Physical Therapy Units 1 Daily Note Summary Pt is weak with transfers and requires Mod A. CGA with gait as well due to mild unsteadiness with AD. Pt would benefit from skilled stay to improve strength and balance.
--- NOTE | 2024-04-11 11:27 | CM.NOTE ---
Rounds made with Dr. Rodriguez, pt will discharge to [facility] for skilled therapy.
[2024-04-11] MEDS: INSULIN ASPART 300 UNIT/3 ML PEN SUBQ (11:37)
--- NOTE | 2024-04-11 11:42 | PM.DS1 ---
DS: Providers Provider Date of admission: 04/06/24 08:41 Primary care physician: PAM STINSON Admitting clinician: Clint Lara Consults: 04/06/24 08:11 Occupational Therapy Eval and Treat Routine Reason for consultation: Only if needed for Rehab Has provider been notified: No Physical Therapy Eval and Treat Routine Reason for consultation: Eval and Treat Has provider been notified: No Attending physician on discharge: Antoinette Rodriguez DS: Diagnosis Discharge Diagnosis (1) Bilateral pneumonia: Qualifiers: Pneumonia type: due to methicillin-resistant Staphylococcus aureus (MRSA) Lung location: unspecified part of lung Qualified Code(s): J15.212 - Pneumonia due to Methicillin resistant Staphylococcus aureus (2) Staphylococcus aureus bacteremia: (3) E-coli UTI: (4) Acute kidney injury: (5) Diabetes: Qualifiers: Diabetes mellitus type: type 2 Diabetes mellitus penitentiary insulin use: with terminal manager use Diabetes mellitus complication status: with kidney complications Diabetes mellitus complication detail: with chronic kidney disease Chronic kidney disease stage: stage 3 (moderate) Chronic kidney disease stage 3 subtype: stage 3b (GFR 30-44) Qualified Code(s): E11.22 - Type 2 diabetes mellitus with diabetic chronic kidney disease; N18.32 - Chronic kidney disease, stage 3b; Z79.4 - ad terminal makeup operator (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 (6) CKD (chronic kidney disease) stage 3, GFR 30-59 ml/min: (7) CAD (coronary artery disease): (8) Asthma: (9) Hypertension: (10) GERD (gastroesophageal reflux disease): (11) Breast CA: DS: Summary Hospital Course Hospital Course: Patient admitted on 04/06/24 for Bilateral pneumonia and acute hypoxia, hypoglycemia. She was also found to UTI, was treated with Linezolid and zosyn. Blood cultures positive for staph aureus, stop linezolid and zosyn. started levaquin she will complete a 14 day course of PO Levaquin and will need 10 more days at 250mg daily for her renal function. She continued OPEP, duonebs and at the time of discharge she was no longer requiring oxygen. WBC's normal. Her UTI, Urine culture grew E.coli, also sensitive to Levaquin. Her Levemir needed adjusted to 20units at night time which improved hypoglycemia. Creatinine also improved to 1.68 at the time of discharge. [facility] in [facility] condition. She is to follow up with PCP in 1-2 weeks. PICC was removed prior to discharge. Normal vitals, labs much improved. She is to return to the ER with any worsening signs or symptoms. Status at Discharge Functional status at discharge: uses cane/walker Overall status at discharge: patient is progressing back to baseline Time Spent with Patient Time attestation: Total time spent providing and/or coordinating discharge services: Time spent: greater than 30 minutes Exam Narrative Exam Narrative: General: Patient is alert, and oriented to person, place and time with normal affect, proper hygiene Skin: no visible rashes, or ulcers Head: atraumatic, acephalic Eyes: PERRLA, no nystagmus present, conjunctiva clear, no scleral icterus Heart: Normal rate and rhythm, no murmurs/rubs/gallops Lungs: no audible wheezes, crackles and normal breath sounds Abdomen: Normal audible bowel sounds, no distension, No palpable masses, no organomegaly, no rebound/guarding/ or rigidity Musculoskeletal: no swelling bilateral lower extremities Neuro: CN II-X grossly intact Constitutional Vital Signs, click to edit/add: Last Vital Signs Temp 98.2 F 04/11/24 08:03 Pulse 100 H 04/11/24 08:03 Resp 18 04/11/24 08:05 BP 150/75 H 04/11/24 08:03 Pulse Ox 91 L 04/11/24 11:04 O2 Del Method Room Air 04/11/24 08:03 O2 Flow Rate 1 04/08/24 10:43 FiO2 30 04/06/24 20:00 DS: Data Data Completed and Pending Labs on day of discharge: Labs from last 24 hours 04/11/24 04/11/24 04/11/24 10:58 07:14 05:22 NT-Pro-B Natriuret Pep 1834.0 H* POC Glucose 229 H 93 04/10/24 04/10/24 20:37 16:00 NT-Pro-B Natriuret Pep POC Glucose 212 H 191 H Preliminary micro results at discharge 04/06/24 12:19 - Preliminary Blood Staphylococcus aureus Discharge Plan Discharge Disposition: Xf SNF Condition: Good Discharge Medications: New Levemir FlexPen 100 unit/mL (3 mL) Insulin Pen 20 unit subcut QPM Qty: 15 0RF levofloxacin 250 mg tablet 250 mg PO DAILY 10 Days Qty: 10 0RF Continued sertraline 100 mg tablet 100 mg PO QAM clopidogrel 75 mg tablet 75 mg PO QDAY trazodone 100 mg tablet 100 mg PO QPM pantoprazole 40 mg tablet,delayed release (DR/EC) 40 mg PO QDAY gabapentin 300 mg capsule 300 mg PO Q12H letrozole 2.5 mg tablet 2.5 mg PO Q24H ondansetron 4 mg tablet,disintegrating 4 mg PO Q8H PRN (Reason: nausea and vomiting) Januvia 50 mg tablet 50 mg PO QAM metoprolol succinate 25 mg tablet extended release 24 hr 25 mg PO DAILY aspirin 81 mg capsule 81 mg PO DAILY Qty: 30 0RF atorvastatin 20 mg tablet 20 mg PO QPM Qty: 30 0RF insulin lispro 100 unit/mL insulin pen 12 unit SUBCUT TIDWM Discontinued Levemir FlexPen 100 unit/mL (3 mL) insulin pen 40 unit SUBCUT QPM Print Language: Bhutanese 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 Forms: Portal Instructions Follow Up Appointments: Follow up with PCP 1-2 weeks Discharge location: [facility]
--- NOTE | 2024-04-11 11:57 | PC.NURSE ---
called aamir and attempted to give report. advertising writer was placed on hold by natividad to get nurse that would be accepting report for 5 minutes. advertising writer gave natividad call back info and ended call.
--- NOTE | 2024-04-11 12:03 | SWNOTE1 ---
Pt is stable for discharge today. Pt is going to [facility] skilled. HUBERT set up trips for 1-1:30. SW notified nursing, [facility], and pt of time. Pt already notified her daughter she was going to [facility] today. HENS was completed on WednesdayApril 07. Packet was updated with vitals, PT note, dc summary, and dc med rec. HUBERT faxed over those updates to [facility]. HUBERT took packet out to med/surge floor.
== END 2024-04-11 12:45 | DRG 871 ==
LOC: ER 04-06 02:13 → MS 04-06 02:16 → ICU 04-06 08:43 → MS 04-07 12:40
PROVIDERS: Family Medicine; Nurse Practitioner Acute Care; Admitting Provider Family Medicine; Emergency Provider Emergency Medicine; PCP Nurse Practitioner; Visit Provider Family Medicine
DX: A41.01 Sepsis due to Methicillin susceptible Staphylococcus aureus (principal); J15.212 Pneumonia due to Methicillin resistant Staphylococcus aureus; J96.01 Acute respiratory failure with hypoxia; J96.02 Acute respiratory failure with hypercapnia; N39.0 Urinary tract infection, site not specified; N17.9 Acute kidney failure, unspecified; I13.0 Hypertensive heart and chronic kidney disease with heart failure and stage 1 through stage 4 chronic kidney disease, or unspecified chronic kidney disease; E11.649 Type 2 diabetes mellitus with hypoglycemia without coma; E11.22 Type 2 diabetes mellitus with diabetic chronic kidney disease; E87.5 Hyperkalemia; K21.9 Gastro-esophageal reflux disease without esophagitis; E78.00 Pure hypercholesterolemia, unspecified; F32.A Depression, unspecified; G47.00 Insomnia, unspecified; I44.7 Left bundle-branch block, unspecified; B96.20 Unspecified Escherichia coli [E. coli] as the cause of diseases classified elsewhere; N18.32 Chronic kidney disease, stage 3b; E11.65 Type 2 diabetes mellitus with hyperglycemia; I50.9 Heart failure, unspecified; J45.909 Unspecified asthma, uncomplicated; C50.919 Malignant neoplasm of unspecified site of unspecified female breast; Z95.3 Presence of xenogenic heart valve; Z79.02 Long term (current) use of antithrombotics/antiplatelets; Z79.4 Long term (current) use of insulin; Z79.899 Other long term (current) drug therapy; G47.33 Obstructive sleep apnea (adult) (pediatric); E11.51 Type 2 diabetes mellitus with diabetic peripheral angiopathy without gangrene; I25.10 Atherosclerotic heart disease of native coronary artery without angina pectoris; Z82.49 Family history of ischemic heart disease and other diseases of the circulatory system; Z83.3 Family history of diabetes mellitus; Z86.73 Personal history of transient ischemic attack (TIA), and cerebral infarction without residual deficits
CPT/HCPCS: 0202U; 36415; 36569; 36592; 36600; 71046; 80053; 81001; 82805; 82948; 83605; 83880; 84145; 84484; 85025; 87040; 87070; 87086; 87150; 87186; 93005; 94640; 94667; 94668; 94761; 94799; 96361; 96365; 96366; 96367; 96368; 96375; 96376; 97112; 97162; 97165; 97530; 99285; C1887; G0328; J0456; J2020

== ENCOUNTER 2024-06-05 12:09 | Emergency (ER) | payer MEDICARE, SELFPAY ==
[2024-06-05 12:18] VITALS: BP 146/56; PULSE 77; TEMP 37.2; O2SAT 95; BMI 31.5
[2024-06-05 13:00] LABS: Bilirubin Urine NEGATIVE (NEGATIVE); Blood Urine SMALL (NEGATIVE); Clarity Urine SL CLOUDY (CLEAR); Color Urine LT. YELLOW (YELLOW); Glucose Urine UA NEGATIVE (NEGATIVE); Ketones Urine NEGATIVE (NEGATIVE); Leukocyte Esterase Urine TRACE (NEGATIVE); Nitrite Urine NEGATIVE (NEGATIVE); Protein Urine 30 mg/dL (NEG/TRACE); Urobilinogen Urine 0.2 EU/dL (0.2-1.0); pH Urine 6.5 (5.0-9.0)
--- NOTE | 2024-06-05 13:18 | ECG_ITS ---
[facility] Test Date: 2024-06-05 Pat Name: TERESA GOODWIN Department: Room: - Gender: Female Data Processing Specialist: : 1945 Requested By: Stephanie Ley Order Number: [id number] Reading MD: RANDY ROSADO Measurements Intervals [place] Rate: 75 P: 41 IL: 150 QRS: -6 QRSD: 138 T: 121 QT: 404 QTc: 433 Interpretive Statements 1100 Sinus rhythm 2550 Left bundle branch block 0102 ARTIFACT PRESENT 9150 abnormal ECG Compared to ECG 04/05/2024 22:04:32 No significant changes Electronically Signed On 06-07-2024 13:15:18 EDT by RANDY ROSADO
--- NOTE | 2024-06-05 13:18 | CT_ITS ---
[address] [address] Patient Name: TERESA GOODWIN MRN: [id number] date: 1945 Sex: F Assigned Patient Location: ER Current Patient Location: .MAIN Accession/Order Number: [id number] Exam Date: 06/05/2024 13:45 Report Date: 06/05/2024 15:03 At the request of: SARKIS PRITCHETT Procedure: CT head/brain wo con CT HEAD WITHOUT CONTRAST, 06/05/2024. HISTORY: Confusion. COMPARISON: CT head without contrast, 02/28/2024. TECHNIQUE: Noncontrast axial CT images obtained through the head. Reconstructions obtained in the sagittal and coronal planes. FINDINGS: The paranasal sinuses are clear. Masseters are clear. No skull lesion. Extracranial soft tissue structures are unremarkable. There is a ventricular shunt placed from a right coronal approach. The shunt extends into the anterior aspect of the right lateral ventricle in stable position. Lateral ventricles are moderately dilated and stable in size. Brain atrophy is stable. No hemorrhage. No mass. No cerebral edema. CT/CT head/brain wo con IMPRESSION: 1. Stable CT of the head. No acute findings. No hemorrhage. 2. Ventricular shunt is in stable position. The ventricles are stable in size. Electronically authenticated by: PATSY MCDERMOTT Date: 06/05/2024 15:03
--- NOTE | 2024-06-05 13:18 | XR_ITS ---
The [address] [address] Patient Name: TERESA GOODWIN MRN: [id number] date: 1945 Sex: F Assigned Patient Location: ER Current Patient Location: ER Accession/Order Number: [id number] Exam Date: 06/05/2024 13:45 Report Date: 06/05/2024 14:06 At the request of: SARKIS PRITCHETT Procedure: XR chest 1V EXAMINATION: XR chest 1V HISTORY: confusion COMPARISON: 09/30/2023 TECHNIQUE: AP portable FINDINGS: LUNGS: No significant pulmonary parenchymal abnormalities. VASCULATURE: No increased pulmonary vasculature. PLEURA: No pneumothorax, effusion, or pleural thickening. CARDIAC: No cardiomegaly or cardiac silhouette abnormality. MEDIASTINUM: No visible mass or adenopathy. Aortic atherosclerosis BONES: No fracture or visible bone lesion. OTHER: Negative. XR/XR chest 1V IMPRESSION: No acute cardiopulmonary process Electronically authenticated by: GIOVANNY NICOLE Date: 06/05/2024 14:06
--- NOTE | 2024-06-05 13:20 | ED_ITS ---
Documented by User: RONNA Thomas 06/05/24 15:04 HPI HPI - General Adult General Chief complaint: Urogenital-Female Stated complaint: UTI COMPLAINTS Time Seen by Provider: 06/05/24 12:51 Source: patient Mode of arrival: Wheelchair Limitations: altered mental status History of Present Illness HPI narrative: And is a 78-year-old female who presents to the emergency department for suspected UTI. She was brought to the emergency department by her daughter for an increase in agitation and confusion for the last 3 days. She has had UTIs in the past with similar symptoms. She apparently had decreased output to her pure wick catheter overnight which prompted the daughter to think she may have a UTI. On my evaluation, the patient does not have her daughter at bedside and the patient has no focal complaints, although she is easily agitated by asking her questions. She is alert and oriented to person, place. She has no slurred speech. Patient denies fevers, vomiting, pain or falls. Related Data Home Medications ?Medication ?Instructions ?Recorded ?Confirmed clopidogrel 75 mg tablet 75 mg PO QDAY 09/30/23 06/05/24 gabapentin 300 mg capsule 300 mg PO Q12H 09/30/23 06/05/24 letrozole 2.5 mg tablet 2.5 mg PO Q24H 09/30/23 06/05/24 ondansetron 4 mg disintegrating 4 mg PO Q8H PRN nausea and vomiting 09/30/23 06/05/24 tablet pantoprazole 40 mg tablet,delayed 40 mg PO QDAY 09/30/23 06/05/24 release sertraline 100 mg tablet 100 mg PO QAM 09/30/23 06/05/24 sitagliptin phosphate 50 mg tablet 50 mg PO QAM 09/30/23 06/05/24 (Januvia) trazodone 100 mg tablet 100 mg PO QPM 09/30/23 06/05/24 metoprolol succinate 25 mg 25 mg PO DAILY 02/27/24 06/05/24 tablet,extended release 24 hr insulin lispro 100 unit/mL 12 unit subcut TIDWM 04/06/24 06/05/24 subcutaneous pen Previous Rx's ?Medication ?Instructions ?Recorded aspirin 81 mg capsule 81 mg PO DAILY #30 caps 02/28/24 atorvastatin 20 mg tablet 20 mg PO QPM #30 tabs 02/28/24 insulin detemir U-100 100 unit/mL 20 unit (0.2 mL) subcut QPM #15 mL 04/11/24 (3 mL) subcutaneous pen (Levemir FlexPen) levofloxacin 250 mg tablet 250 mg PO DAILY 10 days #10 tabs 04/11/24 cephalexin 500 mg capsule 500 mg PO Q8H 7 days #21 caps 06/05/24 fluconazole 150 mg tablet 150 mg PO QWEEK #2 tabs 06/05/24 ondansetron 4 mg disintegrating 4 mg PO Q6H PRN nausea and 06/05/24 tablet vomiting #12 tabs Allergies Allergy/AdvReac Type Severity Reaction Status Date / Time No Known Drug Allergies Allergy Verified 09/30/23 16:22 Opioid HPI Opioid Management Most Recent Opioid Data: Last Pain Scale 0 04/11/24 12:19 Last Pain Intensity 2 04/07/24 10:58 Last ORT Total Score 0 04/06/24 02:17 Last ORT Risk Category Low Risk 04/06/24 02:17 Review of Systems ROS Constitutional Denies: fever or chills Ears, nose, mouth, and throat Denies: throat pain or nasal congestion Cardiovascular Denies: chest pain Respiratory Denies: shortness of breath Gastrointestinal Denies: nausea or vomiting Genitourinary Denies: painful urination Musculoskeletal Denies: back pain Integumentary/Breast Denies: rash Hematologic/Lymphatic Denies: easy bruising or easy bleeding [facility] Medical History (Updated 06/05/24 @ 14:53 by RONNA Thomas) Arthritis ?M19.90 - Unspecified osteoarthritis, unspecified site (ICD-10) Anemia ?D64.9 - Anemia, unspecified (ICD-10) Asthma ?J45.909 - Unspecified asthma, uncomplicated (ICD-10) Encephalitis ?G04.90 - Encephalitis and encephalomyelitis, unspecified (ICD-10) Metastasis to bone ?C79.51 - Secondary malignant neoplasm of bone (ICD-10) Peptic ulcer disease ?K27.9 - Peptic ulcer, site unspecified, unspecified as acute or chronic, without hemorrhage or perforation (ICD-10) TIA (transient ischemic attack) ?G45.9 - Transient cerebral ischemic attack, unspecified (ICD-10) CHELSEA (obstructive sleep apnea) ?G47.33 - Obstructive sleep apnea (adult) (pediatric) (ICD-10) PVD (peripheral vascular disease) ?I73.9 - Peripheral vascular disease, unspecified (ICD-10) Lumbar spondylosis ?M47.816 - Spondylosis without myelopathy or radiculopathy, lumbar region (ICD-10) Incontinence ?R32 - Unspecified urinary incontinence (ICD-10) CKD (chronic kidney disease) stage 3, GFR 30-59 ml/min ?N18.30 - Chronic kidney disease, stage 3 unspecified (ICD-10) Breast CA ?C50.919 - Malignant neoplasm of unspecified site of unspecified female breast (ICD-10) CAD (coronary artery disease) ?I25.10 - Atherosclerotic heart disease of [place] coronary artery without angina pectoris (ICD-10) Depression ?F32.A - Depression, unspecified (ICD-10) GERD (gastroesophageal reflux disease) ?K21.9 - Gastro-esophageal reflux disease without esophagitis (ICD-10) Hypertension ?I10 - Essential (primary) hypertension (ICD-10) Diabetes ?E11.9 - Type 2 diabetes mellitus without complications (ICD-10) Surgical History (Updated 04/06/24 @ 11:40 by Kya León RN) History of mastectomy ?Z90.10 - Acquired absence of unspecified breast and nipple (ICD-10) H/O lumpectomy ?Z98.890 - Other specified postprocedural states (ICD-10) S/P balloon mitral valvuloplasty ?Z98.890 - Other specified postprocedural states (ICD-10) S/P mitral valve replacement with bioprosthetic valve ?Z95.3 - Presence of xenogenic heart valve (ICD-10) Family History (Updated 04/06/24 @ 02:06 by Alayna Garay RN) Other Family history of CHF (congestive heart failure) Family history of diabetes mellitus Family history of myocardial infarction Social History Within the past year, how often did you have a drink containing alcohol: never Score interpretation: A score less than 3 is consistent with normal alcohol consumption. 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 Known occupational exposures/hazards: No Highest level of school completed/degree received: high school graduate Do you want help with school or training: No Are you now , , , , never or living with a partner: never In a typical week, how many times do you talk on the telephone with family, friends, or neighbors: 3 or more times per week How often do you get together with friends or relatives: never How often do you attend mandaen or samaritan services: 4 or more times per year Do you belong to any clubs or organizations such as mandaen groups unions, [employer] or athletic groups, or school groups: no Total score: 2 Score interpretation: A score of greater than or equal to 2 indicates the lowest level of social isolation. Little interest or pleasure in doing things: not at all Feeling down, depressed, or hopeless: not at all Feel stressed/tense/nervous/anxious/difficulty sleeping: not at all Due to disability, difficulty making decisions: No Do you think of yourself as: straight/heterosexual Gender Identity: female Exam Narrative Exam Narrative: Gen.: Awake, alert, in no distress Head: Normocephalic, atraumatic ENT: Moist mucous membranes Respiratory: No respiratory distress, lungs clear bilaterally Cardio: Regular rate and rhythm Gastrointestinal: Abdomen is soft, nondistended and nontender to palpation Extremities: Moves extremities equally Psych: Normal mood and affect Neuro: No focal neuro deficit Skin: Warm, dry, intact Constitutional Vital Signs, click to edit/add: Last Vital Signs Temp 98.9 F 06/05/24 12:18 Pulse 77 06/05/24 12:18 Resp 16 06/05/24 12:18 BP 146/56 H 06/05/24 12:18 Pulse Ox 95 06/05/24 12:18 O2 Del Method Room Air 06/05/24 12:18 Course Vital Signs Vital signs: Vital Signs Temperature 98.9 F 06/05/24 12:18 Pulse Rate 77 06/05/24 12:18 Respiratory Rate 16 06/05/24 12:18 Blood Pressure 146/56 H 06/05/24 12:18 Pulse Oximetry 95 06/05/24 12:18 Oxygen Delivery Method Room Air 06/05/24 12:18 Temperature 98.9 F 06/05/24 12:18 Pulse Rate 77 06/05/24 12:18 Respiratory Rate 16 06/05/24 12:18 Blood Pressure 146/56 H 06/05/24 12:18 Pulse Oximetry 95 06/05/24 12:18 Oxygen Delivery Method Room Air 06/05/24 12:18 Medical Decision Making MDM Narrative Medical decision making narrative: Patient is alert and oriented in the ER however easily agitated. She was medicated with IV fluids, urine specimen shows evidence of mild UTi which may be contributing to her symptoms. Her CT of the brain, XR chest and labs are otherwise unremarkable. I discussed with the patient's daughter results and offered admission, however daughter feels the patient will be ok for outpatient management and prefers to take her home. I feel this is reasonable as the patient is not septic or obtunded. She is prescribed keflex, zofran, diflucan. Follow up PCP and return to the ED if symptoms change or worsen. SUPERVISED APC VISIT, PHYSICIAN ATTESTATION: Based on the medical record the care appears appropriate. ? Medical Records Medical records reviewed: Yes I reviewed the patient's medical records Lab Data Lab results reviewed: Yes I reviewed the patient's lab results Labs: Lab Results 06/05/24 06/05/24 Range/Units 12:42 12:48 WBC 6.9 (4.0-11.0) 10^3/uL RBC 3.79 L (4.20-5.40) 10^6/uL Hgb 10.6 L (12.0-16.0) g/dL Hct 33.4 L (36.0-48.0) % MCV 88.1 (81.0-99.0) fL MCH 28.0 (26.7-34.0) pg MCHC 31.7 (29.9-35.2) g/dL RDW 14.2 (11.0-15.0) % Plt Count 259 (150-450) 10^3/uL MPV 10.1 (9.5-13.5) fL Neut % (Auto) 63.4 (43.0-75.0) % Lymph % (Auto) 24.3 (20.5-60.0) % [place] % (Auto) 10.3 (1.7-12.0) % Eos % (Auto) 1.3 (0.9-7.0) % Baso % (Auto) 0.4 (0.2-2.0) % Neut # (Auto) 4.4 (1.4-6.5) 10^3/uL Lymph # (Auto) 1.7 (1.2-3.8) 10^3/uL [place] # (Auto) 0.7 (0.3-0.8) 10^3/uL Eos # (Auto) 0.1 (0.0-0.7) 10^3/uL Baso # (Auto) 0.0 (0.0-0.1) 10^3/uL Abs Immat Gran (auto) 0.02 (0.00-0.03) 10^3/uL Imm/Tot Granulo (auto) 0.3 (0.0-0.5) % PT 10.8 (9.0-11.6) sec INR 1.02 VBG pH 7.405 (7.330-7.430) VBG pCO2 45.0 (40.0-52.0) mmHg Sodium 138 (136-145) mmol/L Potassium 4.2 (3.5-5.1) mmol/L Chloride 100 (98-107) mmol/L Carbon Dioxide 28.2 (21.0-32.0) mmol/L Anion Gap 14.0 BUN 19.0 H (7.0-18.0) mg/dL Creatinine 1.39 H (0.55-1.02) mg/dL Est GFR ( Amer) 45 L (>=60) Est GFR (Non-Af Amer) 37 L (>=60) BUN/Creatinine Ratio 13.7 Glucose 216 H (74-106) mg/dL Lactate 1.3 (0.4-2.0) mmol/L Calcium 9.4 (8.5-10.1) mg/dL Total Bilirubin 0.6 (0.2-1.0) mg/dL AST 22 (15-37) U/L ALT 25 (14-59) U/L Alkaline Phosphatase 90 (46-116) U/L Troponin I High Sens 14.2 (4.0-51.3) pg/mL Total Protein 8.5 H (6.4-8.2) g/dL Albumin 3.7 (3.4-5.0) g/dL Globulin 4.8 g/dL Albumin/Globulin Ratio 0.8 TSH 1.755 (0.358-3.740) uIU/mL Urine Color Lt. yellow (YELLOW) Urine Clarity Sl cloudy (CLEAR) Urine pH 6.5 (5.0-9.0) Ur Specific [place] 1.020 (1.005-1.025) Urine Protein 30 A (NEG/TRACE) mg/dL Urine Glucose (UA) Negative (NEGATIVE) mg/dL Urine Ketones Negative (NEGATIVE) mg/dL Urine Occult Blood Small A (NEGATIVE) Urine Nitrite Negative (NEGATIVE) Urine Bilirubin Negative (NEGATIVE) Urine Urobilinogen 0.2 (0.2-1.0) EU/dL Ur Leukocyte Esterase Trace A (NEGATIVE) Urine RBC 2-5 A (0-2) #/HPF Urine WBC 5-10 A (NONE SEEN) #/HPF Ur Squamous Epith Cells Many A (NONE/RARE) #/LPF Urine Crystals None seen (None Seen) #/HPF Urine Bacteria Large A (NONE SEEN) #/HPF Urine Casts None seen (NONE SEEN) #/LPF Urine Mucus None seen (NONE SEEN) Ur Culture Indicated? Yes Imaging Data CT scan - head: Attestation: I have reviewed the pertinent imaging results. Radiologist's impression: ITS Impressions Chest X-Ray 06/05/24 13:18 IMPRESSION: No acute cardiopulmonary process Electronically authenticated by: GIOVANNY NICOLE Date: 06/05/2024 14:[address] 06/05/24 13:18 IMPRESSION: 1. Stable CT of the head. No acute findings. No hemorrhage. 2. Ventricular shunt is in stable position. The ventricles are stable in size. Electronically authenticated by: PATSY MCDERMOTT Date: 06/05/2024 15:03 Discharge Plan Discharge Stand Alone Forms: Portal Instructions Chief Complaint: Urogenital-Female Clinical Impression: Acute UTI, Agitation Patient Disposition: Home, Self-Care Time of Disposition Decision: 14:52 Condition: Good Prescriptions / Home Meds: New cephalexin 500 mg capsule 500 mg PO Q8H 7 Days Qty: 21 0RF ondansetron 4 mg tablet,disintegrating 4 mg PO Q6H PRN (Reason: nausea and vomiting) Qty: 12 0RF fluconazole 150 mg tablet 150 mg PO QWEEK Qty: 2 0RF Rx Instructions: to be taken on day 1 and day 7 of antibiotics No Action sertraline 100 mg tablet 100 mg PO QAM clopidogrel 75 mg tablet 75 mg PO QDAY trazodone 100 mg tablet 100 mg PO QPM pantoprazole 40 mg tablet,delayed release (DR/EC) 40 mg PO QDAY gabapentin 300 mg capsule 300 mg PO Q12H letrozole 2.5 mg tablet 2.5 mg PO Q24H ondansetron 4 mg tablet,disintegrating 4 mg PO Q8H PRN (Reason: nausea and vomiting) Januvia 50 mg tablet 50 mg PO QAM metoprolol succinate 25 mg tablet extended release 24 hr 25 mg PO DAILY aspirin 81 mg capsule 81 mg PO DAILY Qty: 30 0RF atorvastatin 20 mg tablet 20 mg PO QPM Qty: 30 0RF insulin lispro 100 unit/mL insulin pen 12 unit SUBCUT TIDWM Levemir FlexPen 100 unit/mL (3 mL) Insulin Pen 20 unit subcut QPM Qty: 15 0RF levofloxacin 250 mg tablet 250 mg PO DAILY 10 Days Qty: 10 0RF Print Language: Cambodian Instructions: Urinary Tract Infection in Older Adults (ED) Additional Instructions: Increase fluids for home, follow up with your doctor. If confusion or agitation worsens or becomes unmanageable at home, please return to the hospital Referrals: PAM STINSON [Primary Care Provider] - 1 week Discharge Date/Time: 06/05/24 15:00 Documented by User: Ra Collazo MD 06/05/24 19:55 HPI HPI - General Adult General Chief complaint: Urogenital-Female Stated complaint: UTI COMPLAINTS Time Seen by Provider: 06/05/24 12:51 Related Data Home Medications ?Medication ?Instructions ?Recorded ?Confirmed clopidogrel 75 mg tablet 75 mg PO QDAY 09/30/23 06/05/24 gabapentin 300 mg capsule 300 mg PO Q12H 09/30/23 06/05/24 letrozole 2.5 mg tablet 2.5 mg PO Q24H 09/30/23 06/05/24 ondansetron 4 mg disintegrating 4 mg PO Q8H PRN nausea and vomiting 09/30/23 06/05/24 tablet pantoprazole 40 mg tablet,delayed 40 mg PO QDAY 09/30/23 06/05/24 release sertraline 100 mg tablet 100 mg PO QAM 09/30/23 06/05/24 sitagliptin phosphate 50 mg tablet 50 mg PO QAM 09/30/23 06/05/24 (Januvia) trazodone 100 mg tablet 100 mg PO QPM 09/30/23 06/05/24 metoprolol succinate 25 mg 25 mg PO DAILY 02/27/24 06/05/24 tablet,extended release 24 hr insulin lispro 100 unit/mL 12 unit subcut TIDWM 04/06/24 06/05/24 subcutaneous pen Previous Rx's ?Medication ?Instructions ?Recorded aspirin 81 mg capsule 81 mg PO DAILY #30 caps 02/28/24 atorvastatin 20 mg tablet 20 mg PO QPM #30 tabs 02/28/24 insulin detemir U-100 100 unit/mL 20 unit (0.2 mL) subcut QPM #15 mL 04/11/24 (3 mL) subcutaneous pen (Levemir FlexPen) levofloxacin 250 mg tablet 250 mg PO DAILY 10 days #10 tabs 04/11/24 cephalexin 500 mg capsule 500 mg PO Q8H 7 days #21 caps 06/05/24 fluconazole 150 mg tablet 150 mg PO QWEEK #2 tabs 06/05/24 ondansetron 4 mg disintegrating 4 mg PO Q6H PRN nausea and 06/05/24 tablet vomiting #12 tabs Allergies Allergy/AdvReac Type Severity Reaction Status Date / Time No Known Drug Allergies Allergy Verified 09/30/23 16:22 Opioid HPI Opioid Management Most Recent Opioid Data: Last Pain Scale 0 04/11/24 12:19 Last Pain Intensity 2 04/07/24 10:58 Last ORT Total Score 0 04/06/24 02:17 Last ORT Risk Category Low Risk 04/06/24 02:17 PFSH PFS Medical History (Updated 06/05/24 @ 14:53 by RONNA Thomas) Arthritis ?M19.90 - Unspecified osteoarthritis, unspecified site (ICD-10) Anemia ?D64.9 - Anemia, unspecified (ICD-10) Asthma ?J45.909 - Unspecified asthma, uncomplicated (ICD-10) Encephalitis ?G04.90 - Encephalitis and encephalomyelitis, unspecified (ICD-10) Metastasis to bone ?C79.51 - Secondary malignant neoplasm of bone (ICD-10) Peptic ulcer disease ?K27.9 - Peptic ulcer, site unspecified, unspecified as acute or chronic, without hemorrhage or perforation (ICD-10) TIA (transient ischemic attack) ?G45.9 - Transient cerebral ischemic attack, unspecified (ICD-10) CHELSEA (obstructive sleep apnea) ?G47.33 - Obstructive sleep apnea (adult) (pediatric) (ICD-10) PVD (peripheral vascular disease) ?I73.9 - Peripheral vascular disease, unspecified (ICD-10) Lumbar spondylosis ?M47.816 - Spondylosis without myelopathy or radiculopathy, lumbar region (ICD-10) Incontinence ?R32 - Unspecified urinary incontinence (ICD-10) CKD (chronic kidney disease) stage 3, GFR 30-59 ml/min ?N18.30 - Chronic kidney disease, stage 3 unspecified (ICD-10) Breast CA ?C50.919 - Malignant neoplasm of unspecified site of unspecified female breast (ICD-10) CAD (coronary artery disease) ?I25.10 - Atherosclerotic heart disease of [place] coronary artery without angina pectoris (ICD-10) Depression ?F32.A - Depression, unspecified (ICD-10) GERD (gastroesophageal reflux disease) ?K21.9 - Gastro-esophageal reflux disease without esophagitis (ICD-10) Hypertension ?I10 - Essential (primary) hypertension (ICD-10) Diabetes ?E11.9 - Type 2 diabetes mellitus without complications (ICD-10) Surgical History (Updated 04/06/24 @ 11:40 by Kya León RN) History of mastectomy ?Z90.10 - Acquired absence of unspecified breast and nipple (ICD-10) H/O lumpectomy ?Z98.890 - Other specified postprocedural states (ICD-10) S/P balloon mitral valvuloplasty ?Z98.890 - Other specified postprocedural states (ICD-10) S/P mitral valve replacement with bioprosthetic valve ?Z95.3 - Presence of xenogenic heart valve (ICD-10) Family History (Updated 04/06/24 @ 02:06 by Alayna Anstead, RN) Other Family history of CHF (congestive heart failure) Family history of diabetes mellitus Family history of myocardial infarction Social History Within the past year, how often did you have a drink containing alcohol: never Score interpretation: A score less than 3 is consistent with normal alcohol consumption. 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 Known occupational exposures/hazards: No Highest level of school completed/degree received: high school graduate Do you want help with school or training: No Are you now , , , , never or living with a partner: never In a typical week, how many times do you talk on the telephone with family, friends, or neighbors: 3 or more times per week How often do you get together with friends or relatives: never How often do you attend mandaen or samaritan services: 4 or more times per year Do you belong to any clubs or organizations such as mandaen groups unions, [employer] or athletic groups, or school groups: no Total score: 2 Score interpretation: A score of greater than or equal to 2 indicates the lowest level of social isolation. Little interest or pleasure in doing things: not at all Feeling down, depressed, or hopeless: not at all Feel stressed/tense/nervous/anxious/difficulty sleeping: not at all Due to disability, difficulty making decisions: No Do you think of yourself as: straight/heterosexual Gender Identity: female Exam Constitutional Vital Signs, click to edit/add: Last Vital Signs Temp 98.9 F 06/05/24 12:18 Pulse 77 06/05/24 12:18 Resp 16 06/05/24 12:18 BP 146/56 H 06/05/24 12:18 Pulse Ox 95 06/05/24 12:18 O2 Del Method Room Air 06/05/24 12:18 Course Vital Signs Vital signs: Vital Signs Temperature 98.9 F 06/05/24 12:18 Pulse Rate 77 06/05/24 12:18 Respiratory Rate 16 06/05/24 12:18 Blood Pressure 146/56 H 06/05/24 12:18 Pulse Oximetry 95 06/05/24 12:18 Oxygen Delivery Method Room Air 06/05/24 12:18 Temperature 98.9 F 06/05/24 12:18 Pulse Rate 77 06/05/24 12:18 Respiratory Rate 16 06/05/24 12:18 Blood Pressure 146/56 H 06/05/24 12:18 Pulse Oximetry 95 06/05/24 12:18 Oxygen Delivery Method Room Air 06/05/24 12:18 Medical Decision Making MDM Narrative Medical decision making narrative: Patient is alert and oriented in the ER however easily agitated. She was medicated with IV fluids, urine specimen shows evidence of mild UTi which may be contributing to her symptoms. Her CT of the brain, XR chest and labs are otherwise unremarkable. I discussed with the patient's daughter results and offered admission, however daughter feels the patient will be ok for outpatient management and prefers to take her home. I feel this is reasonable as the patient is not septic or obtunded. She is prescribed keflex, zofran, diflucan. Follow up PCP and return to the ED if symptoms change or worsen. SUPERVISED APC VISIT, PHYSICIAN ATTESTATION: Based on the medical record the care appears appropriate. I, Dr Collazo, have reviewed the above progress note and course of action in the ER; agree with the above. I have gone over history and physical, and discussed disposition and treatment plan with the patient. ? Lab Data Labs: Lab Results 06/05/24 06/05/24 Range/Units 12:42 12:48 WBC 6.9 (4.0-11.0) 10^3/uL RBC 3.79 L (4.20-5.40) 10^6/uL Hgb 10.6 L (12.0-16.0) g/dL Hct 33.4 L (36.0-48.0) % MCV 88.1 (81.0-99.0) fL MCH 28.0 (26.7-34.0) pg MCHC 31.7 (29.9-35.2) g/dL RDW 14.2 (11.0-15.0) % Plt Count 259 (150-450) 10^3/uL MPV 10.1 (9.5-13.5) fL Neut % (Auto) 63.4 (43.0-75.0) % Lymph % (Auto) 24.3 (20.5-60.0) % [place] % (Auto) 10.3 (1.7-12.0) % Eos % (Auto) 1.3 (0.9-7.0) % Baso % (Auto) 0.4 (0.2-2.0) % Neut # (Auto) 4.4 (1.4-6.5) 10^3/uL Lymph # (Auto) 1.7 (1.2-3.8) 10^3/uL [place] # (Auto) 0.7 (0.3-0.8) 10^3/uL Eos # (Auto) 0.1 (0.0-0.7) 10^3/uL Baso # (Auto) 0.0 (0.0-0.1) 10^3/uL Abs Immat Gran (auto) 0.02 (0.00-0.03) 10^3/uL Imm/Tot Granulo (auto) 0.3 (0.0-0.5) % PT 10.8 (9.0-11.6) sec INR 1.02 VBG pH 7.405 (7.330-7.430) VBG pCO2 45.0 (40.0-52.0) mmHg Sodium 138 (136-145) mmol/L Potassium 4.2 (3.5-5.1) mmol/L Chloride 100 (98-107) mmol/L Carbon Dioxide 28.2 (21.0-32.0) mmol/L Anion Gap 14.0 BUN 19.0 H (7.0-18.0) mg/dL Creatinine 1.39 H (0.55-1.02) mg/dL Est GFR ( Amer) 45 L (>=60) Est GFR (Non-Af Amer) 37 L (>=60) BUN/Creatinine Ratio 13.7 Glucose 216 H (74-106) mg/dL Lactate 1.3 (0.4-2.0) mmol/L Calcium 9.4 (8.5-10.1) mg/dL Total Bilirubin 0.6 (0.2-1.0) mg/dL AST 22 (15-37) U/L ALT 25 (14-59) U/L Alkaline Phosphatase 90 (46-116) U/L Troponin I High Sens 14.2 (4.0-51.3) pg/mL Total Protein 8.5 H (6.4-8.2) g/dL Albumin 3.7 (3.4-5.0) g/dL Globulin 4.8 g/dL Albumin/Globulin Ratio 0.8 TSH 1.755 (0.358-3.740) uIU/mL Urine Color Lt. yellow (YELLOW) Urine Clarity Sl cloudy (CLEAR) Urine pH 6.5 (5.0-9.0) Ur Specific [place] 1.020 (1.005-1.025) Urine Protein 30 A (NEG/TRACE) mg/dL Urine Glucose (UA) Negative (NEGATIVE) mg/dL Urine Ketones Negative (NEGATIVE) mg/dL Urine Occult Blood Small A (NEGATIVE) Urine Nitrite Negative (NEGATIVE) Urine Bilirubin Negative (NEGATIVE) Urine Urobilinogen 0.2 (0.2-1.0) EU/dL Ur Leukocyte Esterase Trace A (NEGATIVE) Urine RBC 2-5 A (0-2) #/HPF Urine WBC 5-10 A (NONE SEEN) #/HPF Ur Squamous Epith Cells Many A (NONE/RARE) #/LPF Urine Crystals None seen (None Seen) #/HPF Urine Bacteria Large A (NONE SEEN) #/HPF Urine Casts None seen (NONE SEEN) #/LPF Urine Mucus None seen (NONE SEEN) Ur Culture Indicated? Yes Imaging Data CT scan - head: Radiologist's impression: ITS Impressions Chest X-Ray 06/05/24 13:18 IMPRESSION: No acute cardiopulmonary process Electronically authenticated by: GIOVANNY NICOLE Date: 06/05/2024 14:[address] 06/05/24 13:18 IMPRESSION: 1. Stable CT of the head. No acute findings. No hemorrhage. 2. Ventricular shunt is in stable position. The ventricles are stable in size. Electronically authenticated by: PATSY MCDERMOTT Date: 06/05/2024 15:03 ECG Data Attestation: I personally reviewed and interpreted this ECG as follows: (EKG interpretation. Normal sinus rhythm at 75 beats a minute. Normal axis deviation. Artifact noted. Left bundle branch block noted. QTc of 433. Looking at old EKG on April 05, 2024, patient has old left bundle branch block.) Discharge Plan Discharge Stand Alone Forms: Portal Instructions Chief Complaint: Urogenital-Female Clinical Impression: Acute UTI, Agitation Patient Disposition: Home, Self-Care Time of Disposition Decision: 14:52 Condition: Good Prescriptions / Home Meds: New cephalexin 500 mg capsule 500 mg PO Q8H 7 Days Qty: 21 0RF ondansetron 4 mg tablet,disintegrating 4 mg PO Q6H PRN (Reason: nausea and vomiting) Qty: 12 0RF fluconazole 150 mg tablet 150 mg PO QWEEK Qty: 2 0RF Rx Instructions: to be taken on day 1 and day 7 of antibiotics No Action sertraline 100 mg tablet 100 mg PO QAM clopidogrel 75 mg tablet 75 mg PO QDAY trazodone 100 mg tablet 100 mg PO QPM pantoprazole 40 mg tablet,delayed release (DR/EC) 40 mg PO QDAY gabapentin 300 mg capsule 300 mg PO Q12H letrozole 2.5 mg tablet 2.5 mg PO Q24H ondansetron 4 mg tablet,disintegrating 4 mg PO Q8H PRN (Reason: nausea and vomiting) Januvia 50 mg tablet 50 mg PO QAM metoprolol succinate 25 mg tablet extended release 24 hr 25 mg PO DAILY aspirin 81 mg capsule 81 mg PO DAILY Qty: 30 0RF atorvastatin 20 mg tablet 20 mg PO QPM Qty: 30 0RF insulin lispro 100 unit/mL insulin pen 12 unit SUBCUT TIDWM Levemir FlexPen 100 unit/mL (3 mL) Insulin Pen 20 unit subcut QPM Qty: 15 0RF levofloxacin 250 mg tablet 250 mg PO DAILY 10 Days Qty: 10 0RF Print Language: Cambodian Instructions: Urinary Tract Infection in Older Adults (ED) Additional Instructions: Increase fluids for home, follow up with your doctor. If confusion or agitation worsens or becomes unmanageable at home, please return to the hospital Referrals: PAM STINSON [Primary Care Provider] - 1 week Discharge Date/Time: 06/05/24 15:00
[2024-06-05 13:24] LABS: Basophils Percent Auto 0.4 % (0.2-2.0); Eosinophils Absolute Auto 0.1 10^3/uL (0.0-0.7); Eosinophils Percent Auto 1.3 % (0.9-7.0); Hematocrit 33.4 % (36.0-48.0); Hemoglobin 10.6 g/dL (12.0-16.0); Immature Granulocytes Abs Auto 0.02 10^3/uL (0.00-0.03); Immature Granulocytes Pct Auto 0.3 % (0.0-0.5); Lymphocytes Absolute Auto 1.7 10^3/uL (1.2-3.8); Lymphocytes Percent Auto 24.3 % (20.5-60.0); Mean Corpuscular HGB Conc 31.7 g/dL (29.9-35.2); Mean Corpuscular Volume 88.1 fL (81.0-99.0); Mean Platelet Volume 10.1 fL (9.5-13.5); Monocytes Absolute Auto 0.7 10^3/uL (0.3-0.8); Monocytes Percent Auto 10.3 % (1.7-12.0); Neutrophils Absolute Auto 4.4 10^3/uL (1.4-6.5); Neutrophils Percent Auto 63.4 % (43.0-75.0); Platelet Count 259 10^3/uL (150-450); Red Blood Count 3.79 10^6/uL (4.20-5.40); Red Cell Distribution Width 14.2 % (11.0-15.0); White Blood Count 6.9 10^3/uL (4.0-11.0)
[2024-06-05 13:28] LABS: pH VBG 7.405 (7.330-7.430)
[2024-06-05] MEDS: 0.9 % SODIUM CHLORIDE 1,000 ML 999 ML IV (13:35)
[2024-06-05 13:36] LABS: Bacteria Urine LARGE #/HPF (NONE SEEN); Cast Seen? NONE SEEN #/LPF (NONE SEEN); Crystals Seen? None Seen #/HPF (None Seen); Mucus Urine NONE SEEN (NONE SEEN); Squamous Epithelial Cell Urine MANY #/LPF (NONE/RARE)
[2024-06-05 13:37] LABS: Urine Culture Indicated YES
[2024-06-05 13:42] LABS: Lactate/Lactic Acid 1.3 mmol/L (0.4-2.0)
[2024-06-05 13:46] LABS: INR 1.02; Prothrombin Time 10.8 sec (9.0-11.6)
[2024-06-05 13:58] LABS: Alanine Aminotransferase 25 U/L (14-59); Albumin Globulin Ratio 0.8; Albumin Level 3.7 g/dL (3.4-5.0); Alkaline Phosphatase 90 U/L (46-116); Aspartate Amino Transferase 22 U/L (15-37); BUN Creatinine Ratio 13.7; Bilirubin Total 0.6 mg/dL (0.2-1.0); Calcium 9.4 mg/dL (8.5-10.1); Carbon Dioxide 28.2 mmol/L (21.0-32.0); Chloride 100 mmol/L (98-107); Estimated GFR (African America 45 (>=60); Estimated GFR (Non-African Ame 37 (>=60); Globulin 4.8 g/dL; Glucose 216 mg/dL (74-106); Potassium 4.2 mmol/L (3.5-5.1); Sodium 138 mmol/L (136-145); Thyroid Stimulating Hormone 1.755 uIU/mL (0.358-3.740); Total Protein 8.5 g/dL (6.4-8.2); Troponin I High Sensitivity 14.2 pg/mL (4.0-51.3)
== END 2024-06-05 15:00 | disposition home or self-care (01) ==
PROVIDERS: Physician Assistant; Emergency Provider Emergency Medicine; PCP Nurse Practitioner
DX: N39.0 Urinary tract infection, site not specified (principal); R45.1 Restlessness and agitation; Z87.440 Personal history of urinary (tract) infections; Z86.73 Personal history of transient ischemic attack (TIA), and cerebral infarction without residual deficits
CPT/HCPCS: 36415; 70450; 71045; 80053; 81001; 82800; 83605; 84443; 84484; 85025; 85610; 87086; 93005; 99285

== ENCOUNTER 2024-10-11 15:22 | Observation (INO) | payer MEDICARE, SELFPAY ==
[2024-10-11] VITALS (12 sets, daily range): BP systolic 122–144; BP diastolic 68–76; PULSE 80–96; TEMP 36.6–36.9; O2SAT 89–100; BMI 29.1; BMI 32.6
--- NOTE | 2024-10-11 15:30 | XR_ITS ---
The [address] [address] Patient Name: TERESA GOODWIN MRN: [id number] date: 1945 Sex: F Assigned Patient Location: ED.MAIN Current Patient Location: ER Accession/Order Number: [id number] Exam Date: 10/11/2024 16:02 Report Date: 10/11/2024 16:19 At the request of: SARKIS PRITCHETT Procedure: XR chest 1V EXAMINATION: XR chest 1V HISTORY: Weakness, nausea COMPARISON: XR chest 06/05/2024 FINDINGS: LUNGS: No significant pulmonary parenchymal abnormalities. VASCULATURE: No increased pulmonary vasculature. PLEURA: No pneumothorax, effusion, or pleural thickening. CARDIAC: No cardiomegaly or cardiac silhouette abnormality. MEDIASTINUM: No visible mass or adenopathy. BONES: No fracture or visible bone lesion. OTHER: Ventriculoperitoneal shunt catheter traversing over the right hemithorax. XR/XR chest 1V IMPRESSION: 1. No acute cardiopulmonary process. Stable chest. Electronically authenticated by: SUKHJINDER MALONE Date: 10/11/2024 16:19
--- NOTE | 2024-10-11 15:30 | ECG_ITS ---
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
--- NOTE | 2024-10-11 15:30 | CT_ITS ---
[address] [address] Patient Name: TERESA GOODWIN MRN: [id number] date: 1945 Sex: F Assigned Patient Location: ER Current Patient Location: Accession/Order Number: [id number] Exam Date: 10/11/2024 16:02 Report Date: 10/11/2024 19:06 At the request of: SARKIS PRITCHETT Procedure: CT abdomen pelvis wo con Indication: UTI. Nausea. Comparison: None Procedure: Axial images were made from the diaphragms through the symphysis pubis. No oral contrast or intravenous contrast was given. Dose reduction techniques were achieved by using automated exposure control and/or adjustment of mA and/or kV according to patient size and/or use of iterative reconstruction technique. Findings: Liver/Biliary System: No liver masses are seen. No intra or extrahepatic biliary dilatation. No gallstones or cholecystitis. Pancreas/Spleen: No evidence of acute pancreatitis. Pancreatic duct is not dilated. No splenomegaly. Kidneys/Adrenals: No renal or ureteral stones are seen. No hydronephrosis or hydroureter bilaterally. No adrenal nodules. Aorta/Vessels: No evidence of aortic aneurysm. Evaluation of vessels is limited due to lack of IV contrast. Bowel/Fluid/Nodes: No bowel dilatation or bowel wall thickening. No evidence of bowel obstruction. Normal appendix. No ascites or fluid collections. No adenopathy. Lung bases: Clear. Other findings: Diffuse osteolytic lesions involving lumbosacral spine and pelvic bones concerning for metastatic disease or multiple myeloma. Please correlate clinically. MRI of the lumbosacral spine may be recommended on a nonemergent basis for further assessment. 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 Wedging of L1 vertebra is seen. Pelvis: A 6.4 x 4.7 cm left ovarian cyst is seen. Peritoneal dialysis catheter is seen in the pelvis. Left fat-containing inguinal hernia. Bladder and uterus grossly unremarkable. CT/CT abdomen pelvis wo con Impression: 1. No evidence of acute abdominal or pelvic process. 2. Diffuse osteolytic lesions involving lumbosacral spine and pelvic bones concerning for metastatic disease or multiple myeloma. Please correlate clinically. MRI of the lumbosacral spine may be recommended on a nonemergent basis for further assessment. 3. A 6.4 x 4.7 cm left ovarian cyst. Pelvic/transvaginal ultrasound may be recommended on a nonemergent basis for further assessment. 4. Left fat-containing inguinal hernia. 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 Electronically authenticated by: BANG BLACKWOOD Date: 10/11/2024 19:06
--- NOTE | 2024-10-11 15:32 | CT_ITS ---
The [address] [address] Patient Name: TERESA GOODWIN MRN: [id number] date: 1945 Sex: F Assigned Patient Location: ER Current Patient Location: ER Accession/Order Number: [id number] Exam Date: 10/11/2024 16:02 Report Date: 10/11/2024 16:42 At the request of: SARKIS PRITCHETT Procedure: CT head/brain wo con EXAM: CT head/brain wo con HISTORY: Nausea and weakness. TECHNIQUE: Axial CT scans through the head were obtained without IV contrast administration. Dose reduction techniques were achieved by using: automated exposure control and/or adjustment of mA and/or kV according to patient size and/or use of an iterative reconstruction technique. COMPARISON: 06/05/2024. FINDINGS: Mild periventricular low attenuation in the cerebral hemispheres without associated mass effect. A SU[employer] shunt via the right frontal approach is again demonstrated. A small area of encephalomalacia in the right middle frontal gyrus near the ventricular catheter entrance is again noted. The brainstem and the cerebellum appear normal. Moderate to severe dilatation of the ventricular system without effacement of the cortical sulci is unchanged. No area of abnormal mass effect, edema, or intracranial hemorrhage is shown. The visualized orbits show no abnormal mass. The visualized paranasal sinuses show no air-fluid level. Mastoid air cells are clear. CT/CT head/brain wo con IMPRESSION: 1. Mild old microvascular ischemic change. Moderate to severe dilatation of the ventricular system is unchanged. 2. No acute intracranial process. Electronically authenticated by: MARITA ROBERSON Date: 10/11/2024 16:42
--- NOTE | 2024-10-11 15:33 | ED_ITS ---
HPI HPI - General Adult General Chief complaint: Nausea/Vomiting/Diarrhea Stated complaint: other Time Seen by Provider: 10/11/24 15:26 Source: patient Mode of arrival: ambulance History of Present Illness HPI narrative: Patient is a 79-year-old female brought to the emergency department by EMS at the family's request from [place] where she lives. EMS provides the entire history as the patient's daughter is not with her. Patient states she is nauseated but she is not able to provide any additional history. EMS reports that the patient has been at the [facility] for the last 3 days, it is unclear if she had 3 ER visits or if she was admitted. She was diagnosed with urinary tract infection, apparently the patient's daughter did not picker/puller the antibiotics today and called 911 to send the patient to this emergency department for IV antibiotics . EMS reports that the patient has been in the same depends for 72 hours. Patient denies chest pain, shortness of breath, falls or syncope. She denies vomiting or diarrhea. She states it does burn when she urinates. Related Data Home Medications ?Medication ?Instructions ?Recorded ?Confirmed clopidogrel 75 mg tablet 75 mg PO QDAY 09/30/23 10/11/24 gabapentin 300 mg capsule 300 mg PO Q12H 09/30/23 10/11/24 letrozole 2.5 mg tablet 2.5 mg PO Q24H 09/30/23 10/11/24 ondansetron 4 mg disintegrating 4 mg PO Q8H PRN nausea and vomiting 09/30/23 06/05/24 tablet pantoprazole 40 mg tablet,delayed 40 mg PO QDAY 09/30/23 10/11/24 release sertraline 100 mg tablet 100 mg PO QAM 09/30/23 10/11/24 trazodone 100 mg tablet 100 mg PO QPM 09/30/23 10/11/24 metoprolol succinate 25 mg 25 mg PO DAILY 02/27/24 10/11/24 tablet,extended release 24 hr insulin lispro 100 unit/mL 12 unit subcut TIDWM 04/06/24 10/11/24 subcutaneous pen cefdinir 300 mg capsule 300 mg PO Q12H 10/11/24 10/11/24 lisinopril 5 mg tablet 5 mg PO DAILY 10/11/24 10/11/24 Previous Rx's ?Medication ?Instructions ?Recorded aspirin 81 mg capsule 81 mg PO DAILY #30 caps 02/28/24 atorvastatin 20 mg tablet 20 mg PO QPM #30 tabs 02/28/24 insulin detemir U-100 100 unit/mL 20 unit (0.2 mL) subcut QPM #15 mL 04/11/24 (3 mL) subcutaneous pen (Levemir FlexPen) levofloxacin 250 mg tablet 250 mg PO DAILY 10 days #10 tabs 04/11/24 cephalexin 500 mg capsule 500 mg PO Q8H 7 days #21 caps 06/05/24 fluconazole 150 mg tablet 150 mg PO QWEEK #2 tabs 06/05/24 ondansetron 4 mg disintegrating 4 mg PO Q6H PRN nausea and 06/05/24 tablet vomiting #12 tabs Allergies Allergy/AdvReac Type Severity Reaction Status Date / Time No Known Drug Allergies Allergy Verified 10/11/24 15:40 Opioid HPI Opioid Management Most Recent Opioid Data: Last Pain Scale 0 04/11/24 12:19 04/11/24 Last Pain Intensity 2 04/07/24 10:58 04/07/24 Last ORT Total Score 0 04/06/24 02:17 04/06/24 Last ORT Risk Category Low Risk 04/06/24 02:17 04/06/24 Review of Systems ROS Constitutional Denies: fever or chills Ears, nose, mouth, and throat Denies: throat pain or nasal congestion Cardiovascular Denies: chest pain Respiratory Reports: cough; Denies: shortness of breath Gastrointestinal Reports: nausea; Denies: abdominal pain, vomiting or diarrhea Genitourinary Reports: painful urination Integumentary/Breast Denies: rash Neurological Denies: dizziness [facility] Medical History (Updated 10/11/24 @ 19:21 by RONNA Thomas) Arthritis ?M19.90 - Unspecified osteoarthritis, unspecified site (ICD-10) Anemia ?D64.9 - Anemia, unspecified (ICD-10) Asthma ?J45.909 - Unspecified asthma, uncomplicated (ICD-10) Encephalitis ?G04.90 - Encephalitis and encephalomyelitis, unspecified (ICD-10) Metastasis to bone ?C79.51 - Secondary malignant neoplasm of bone (ICD-10) Peptic ulcer disease ?K27.9 - Peptic ulcer, site unspecified, unspecified as acute or chronic, without hemorrhage or perforation (ICD-10) TIA (transient ischemic attack) ?G45.9 - Transient cerebral ischemic attack, unspecified (ICD-10) CHELSEA (obstructive sleep apnea) ?G47.33 - Obstructive sleep apnea (adult) (pediatric) (ICD-10) PVD (peripheral vascular disease) ?I73.9 - Peripheral vascular disease, unspecified (ICD-10) Lumbar spondylosis ?M47.816 - Spondylosis without myelopathy or radiculopathy, lumbar region (ICD-10) Incontinence ?R32 - Unspecified urinary incontinence (ICD-10) CKD (chronic kidney disease) stage 3, GFR 30-59 ml/min ?N18.30 - Chronic kidney disease, stage 3 unspecified (ICD-10) Breast CA ?C50.919 - Malignant neoplasm of unspecified site of unspecified female breast (ICD-10) CAD (coronary artery disease) ?I25.10 - Atherosclerotic heart disease of [place] coronary artery without angina pectoris (ICD-10) Depression ?F32.A - Depression, unspecified (ICD-10) GERD (gastroesophageal reflux disease) ?K21.9 - Gastro-esophageal reflux disease without esophagitis (ICD-10) Hypertension ?I10 - Essential (primary) hypertension (ICD-10) Diabetes ?E11.9 - Type 2 diabetes mellitus without complications (ICD-10) Surgical History (Updated 04/06/24 @ 11:40 by Kya León, GABBY) History of mastectomy ?Z90.10 - Acquired absence of unspecified breast and nipple (ICD-10) H/O lumpectomy ?Z98.890 - Other specified postprocedural states (ICD-10) S/P balloon mitral valvuloplasty ?Z98.890 - Other specified postprocedural states (ICD-10) S/P mitral valve replacement with bioprosthetic valve ?Z95.3 - Presence of xenogenic heart valve (ICD-10) Family History (Updated 04/06/24 @ 02:06 by Alayna Garay, GABBY) Other Family history of CHF (congestive heart failure) Family history of diabetes mellitus Family history of myocardial infarction Social History Within the past year, how often did you have a drink containing alcohol: never Score interpretation: A score less than 3 is consistent with normal alcohol consumption. 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 Known occupational exposures/hazards: No Highest level of school completed/degree received: high school graduate Do you want help with school or training: No Are you now , , , , never or living with a partner: never In a typical week, how many times do you talk on the telephone with family, friends, or neighbors: 3 or more times per week How often do you get together with friends or relatives: never How often do you attend pentecostalism or episcopal services: 4 or more times per year Do you belong to any clubs or organizations such as pentecostalism groups unions, [employer] or athletic groups, or school groups: no Total score: 2 Score interpretation: A score of greater than or equal to 2 indicates the lowest level of social isolation. Little interest or pleasure in doing things: not at all Feeling down, depressed, or hopeless: not at all Feel stressed/tense/nervous/anxious/difficulty sleeping: not at all Due to disability, difficulty making decisions: No Do you think of yourself as: straight/heterosexual Gender Identity: female Exam Narrative Exam Narrative: Gen.: Awake, alert, in no distress Head: Normocephalic, atraumatic ENT: Moist mucous membranes Respiratory: No respiratory distress, lungs clear bilaterally Cardio: Regular rate and rhythm Gastrointestinal: Abdomen is soft, nondistended and nontender to palpation Extremities: Moves extremities equally Psych: Normal mood and affect Neuro: No focal neuro deficit Skin: Warm, dry, intact Constitutional Vital Signs, click to edit/add: Last Vital Signs Temp 98.5 F 10/11/24 15:24 Pulse 80 10/11/24 17:36 Resp 18 10/11/24 17:36 BP 131/68 10/11/24 17:36 Pulse Ox 93 L 10/11/24 17:36 O2 Del Method Room Air 10/11/24 17:36 Course Vital Signs Vital signs: Vital Signs Temperature 98.5 F 10/11/24 15:24 Pulse Rate 86 10/11/24 15:24 Respiratory Rate 20 10/11/24 15:24 Blood Pressure 131/72 10/11/24 15:24 Pulse Oximetry 92 L 10/11/24 15:24 Oxygen Delivery Method Room Air 10/11/24 15:24 Temperature 98.5 F 10/11/24 15:24 Pulse Rate 80 10/11/24 17:36 Respiratory Rate 18 10/11/24 17:36 Blood Pressure 131/68 10/11/24 17:36 Pulse Oximetry 93 L 10/11/24 17:36 Oxygen Delivery Method Room Air 10/11/24 17:36 Medical Decision Making MDM Narrative Medical decision making narrative: On arrival to the emergency department, patient's daughter was not present and additional information was received from the patient's daughter over the phone by nursing. Patient's daughter states that the patient has not been herself for the last several days although she has not had any falls or injuries. She was seen at the [place] emergency department 2 days ago, records eventually show that the patient had a dip urine with no further testing initially and was started on cefdinir. She returned to the emergency department at [place] this morning at 3 AM by EMS where she had a workup including a CT scan. Patient was sent for CT of the head, chest x-ray and CT of the abdomen and pelvis without contrast prior to receiving records from [place]. Lab studies show the patient has stable hemoglobin, stable kidney function and negative respiratory swabs. A U[place] catheter was placed and urine specimen was obtained showing a urinary tract infection. She received IV Zofran and Rocephin. While in the course of the patient's workup, Adult Protective Services contacted the emergency department stating that they followed up from the EMS report about the patient's home. Adult Protective Services states that the patient is not safe to return to her home and they will push for placement in rehab or prison, however they are not able to do so from the emergency department due to the holiday and requested the patient be admitted. As this is the patient's third visit to the emergency department in 2 days, she has altered mental status and a urinary tract infection, we will admit for IV antibiotics and observation With a goal of placement as indicated. There was a significant delay in obtaining the CT of the abdomen and pelvis from the radiology group. This delayed the patient's admission almost 2 hours. She is stable at time of admission to the hospitalist service. Vital signs remained stable. SUPERVISED APC VISIT, PHYSICIAN ATTESTATION: Based on the medical record the care appears appropriate. ? Medical Records Medical records reviewed: Yes I reviewed the patient's medical records Lab Data Lab results reviewed: Yes I reviewed the patient's lab results Labs: Lab Results 10/11/24 10/11/24 10/11/24 Range/Units 15:30 15:44 17:00 WBC 8.5 (4.0-11.0) 10^3/uL RBC 3.85 L (4.20-5.40) 10^6/uL Hgb 10.7 L (12.0-16.0) g/dL Hct 33.5 L (36.0-48.0) % MCV 87.0 (81.0-99.0) fL MCH 27.8 (26.7-34.0) pg MCHC 31.9 (29.9-35.2) g/dL RDW 14.7 (11.0-15.0) % Plt Count 330 (150-450) 10^3/uL MPV 10.0 (9.5-13.5) fL Neut % (Auto) 74.4 (43.0-75.0) % Lymph % (Auto) 15.3 L (20.5-60.0) % [place] % (Auto) 8.8 (1.7-12.0) % Eos % (Auto) 0.6 L (0.9-7.0) % Baso % (Auto) 0.5 (0.2-2.0) % Neut # (Auto) 6.3 (1.4-6.5) 10^3/uL Lymph # (Auto) 1.3 (1.2-3.8) 10^3/uL [place] # (Auto) 0.7 (0.3-0.8) 10^3/uL Eos # (Auto) 0.1 (0.0-0.7) 10^3/uL Baso # (Auto) 0.0 (0.0-0.1) 10^3/uL Abs Immat Gran (auto) 0.03 (0.00-0.03) 10^3/uL Imm/Tot Granulo (auto) 0.4 (0.0-0.5) % PT 11.4 (9.0-11.6) sec INR 1.08 VBG pH 7.348 (7.330-7.430) VBG pCO2 45.4 (40.0-52.0) mmHg Sodium 138 (136-145) mmol/L Potassium 4.0 (3.5-5.1) mmol/L Chloride 101 (98-107) mmol/L Carbon Dioxide 25.8 (21.0-32.0) mmol/L Anion Gap 15.2 BUN 23.0 H (7.0-18.0) mg/dL Creatinine 1.63 H (0.55-1.02) mg/dL Est GFR ( Amer) 37 L (>=60 mL/min/1.73m^2) Est GFR (Non-Af Amer) 31 L (>=60 mL/min/1.73m^2) BUN/Creatinine Ratio 14.1 Glucose 201 H (74-106) mg/dL Lactate 1.6 (0.4-2.0) mmol/L Calcium 9.7 (8.5-10.1) mg/dL Total Bilirubin 0.6 (0.2-1.0) mg/dL AST 21 (15-37) U/L ALT 20 (14-59) U/L Alkaline Phosphatase 104 (46-116) U/L Troponin I High Sens 30.5 (4.0-51.3) pg/mL Total Protein 7.9 (6.4-8.2) g/dL Albumin 3.6 (3.4-5.0) g/dL Globulin 4.3 g/dL Albumin/Globulin Ratio 0.8 Urine Color Lt. yellow (YELLOW) Urine Clarity Slightly cloudy A (CLEAR) Urine pH 5.5 (5.0-9.0) Ur Specific [place] >=1.030 A (1.005-1.025) Urine Protein 30 A (NEG/TRACE) mg/dL Urine Glucose (UA) Negative (NEGATIVE) mg/dL Urine Ketones 15 A (NEGATIVE) mg/dL Urine Occult Blood Trace-i (NEGATIVE) Urine Nitrite Negative (NEGATIVE) Urine Bilirubin Small A (NEGATIVE) Urine Urobilinogen 0.2 (0.2-1.0) EU/dL Ur Leukocyte Esterase Moderate A (NEGATIVE) Urine RBC 0-2 (0-2) #/HPF Urine WBC >100 A (NONE SEEN) #/HPF Ur Squamous Epith Cells Many A (NONE/RARE) #/LPF Urine Crystals None seen (None Seen) #/HPF Urine Bacteria Small A (NONE SEEN) #/HPF Urine Casts Seen A (NONE SEEN) #/LPF Hyaline Casts Few Fine Granular Casts Few Urine Mucus Moderate A (NONE SEEN) Urine Yeast Seen A (NONE SEEN) Ur Culture Indicated? Yes RSV Antigen Not detected (NOT DETECTE) SARS-CoV-2 Ag (CV2AG) Negative (NEGATIVE) Imaging Data CT scan - head: Attestation: I have reviewed the pertinent imaging results. Radiologist's impression: ITS Impressions Abdomen/Pelvis CT 10/11/24 15:30 Impression: 1. No evidence of acute abdominal or pelvic process. 2. Diffuse osteolytic lesions involving lumbosacral spine and pelvic bones concerning for metastatic disease or multiple myeloma. Please correlate clinically. MRI of the lumbosacral spine may be recommended on a nonemergent basis for further assessment. 3. A 6.4 x 4.7 cm left ovarian cyst. Pelvic/transvaginal ultrasound may be recommended on a nonemergent basis for further assessment. 4. Left fat-containing inguinal hernia. 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 Electronically authenticated by: BANG BLACKWOOD Date: 10/11/2024 19:06 Chest X-Ray 10/11/24 15:30 IMPRESSION: 1. No acute cardiopulmonary process. Stable chest. Electronically authenticated by: SUKHJINDER MALONE Date: 10/11/2024 16:[address] 10/11/24 15:32 IMPRESSION: 1. Mild old microvascular ischemic change. Moderate to severe dilatation of the ventricular system is unchanged. 2. No acute intracranial process. Electronically authenticated by: MARITA ROBERSON Date: 10/11/2024 16:42 ECG Data Attestation: I personally reviewed and interpreted this ECG as follows: (Sinus rhythm at a rate of 85 with a left bundle branch block, present on previous, artifact present with no obvious ST elevation. EKG reviewed by attending physician) Discharge Plan Discharge Chief Complaint: Nausea/Vomiting/Diarrhea Clinical Impression: Acute UTI, Altered mental status, Weakness Patient Disposition: Admitted as Observation Time of Disposition Decision: 19:20 Prescriptions / Home Meds: No Action sertraline 100 mg tablet 100 mg PO QAM clopidogrel 75 mg tablet 75 mg PO QDAY trazodone 100 mg tablet 100 mg PO QPM pantoprazole 40 mg tablet,delayed release (DR/EC) 40 mg PO QDAY gabapentin 300 mg capsule 300 mg PO Q12H letrozole 2.5 mg tablet 2.5 mg PO Q24H ondansetron 4 mg tablet,disintegrating 4 mg PO Q8H PRN (Reason: nausea and vomiting) metoprolol succinate 25 mg tablet extended release 24 hr 25 mg PO DAILY aspirin 81 mg capsule 81 mg PO DAILY Qty: 30 0RF atorvastatin 20 mg tablet 20 mg PO QPM Qty: 30 0RF lisinopril 5 mg tablet 5 mg PO DAILY cefdinir 300 mg capsule 300 mg PO Q12H insulin lispro 100 unit/mL insulin pen 12 unit SUBCUT TIDWM Levemir FlexPen 100 unit/mL (3 mL) Insulin Pen 20 unit subcut QPM Qty: 15 0RF levofloxacin 250 mg tablet 250 mg PO DAILY 10 Days Qty: 10 0RF cephalexin 500 mg capsule 500 mg PO Q8H 7 Days Qty: 21 0RF ondansetron 4 mg tablet,disintegrating 4 mg PO Q6H PRN (Reason: nausea and vomiting) Qty: 12 0RF fluconazole 150 mg tablet 150 mg PO QWEEK Qty: 2 0RF Rx Instructions: to be taken on day 1 and day 7 of antibiotics Print Language: Greek Referrals: PAM STINSON [Primary Care Provider] - 1 week
--- NOTE | 2024-10-11 15:51 | PC.NURSE ---
Call placed to patient's daughter Ileana to obtain information, patient lives with daughter. Medications and allergies verified with daughter. Per daughter patient was at [place] [facility] early this morning and yesterday morning with diagnosis of UTI.
--- OUTSIDE RECORDS SUMMARY | 2024-10-11 15:55 | XMS_ITS | CCD ---
Author Organization [facility] Care Team Providers Care Cyber Intel Planner Name Role Phone Caden Sanchez Primary Care [...] Referring Unavailable GIOVANNY LOGAN Primary Care Unavailable Daniel Caden Patel Primary Care Provider Unavaildeshawn Ley METAL BALER - PELT DROPPER, Pam De La Rosa Primary Care Prov ider JEREMIAH, AMEER Referring Unavailable CADEN SANCHEZ Primary Care Unavailable JEREMIAH, AMEER Admitting Unavailable JEREMIAH, AMAFSHINR Attending Unavailable NAMRATA BLAIR Referring Unavailable PAM LEY Primary Care Unavailable NAMRATA BLAIR Referring Unavailable PAM LEY Primary Care Unavailable JEREMIAH, AMEER Attending Unavailable JEREMIAH, AMEER Referring Unavailable CADEN SANCHEZ Primary Care Unavailable JEREMIAH, AMEER Attending Unavailable JEREMIAH AMEER Referring Unavailable CADEN SANCHEZ Primary Care Unavailable FLIP JHA Referring Unavailable CADEN SANCHEZ Primary Care Unavailable JEREMIAH, AMEER Referring Unavailable CADEN SANCHEZ Primary Care Unavailable JEREMIAH, AMEER Admitting Unavailable JEREMIAH, AMEER Attending Unavailable BRENNAN CALDERA Consulting Unavailable DANIELCADEN Primary Care Unavailable CHARMAINE BLAND Consulting Unavailable MARITZA MIDDLETON Attending Unavailable MARITZA MIDDLETON Admitting Unavailable Ley METAL BALER-PELT DROPPER, Pam De La Rosa Primary Care Provid er LEY, PAM Estrella Referring Unavailable LEY, PAM J Primary Care Unavailable OVITT, VALE Attending Unavailable OVITT, VALE Referring Unavailable OVITT, VALE Referring Unavailable OVITT, VALE Referring Unavailable OVITT, VALE Referring Unavailable OVITT, VALE Referring Unavailable OVITT, VALE Attending Unavailable LEY, PAM J Attending Unavailable LEY, PAM J Referring Unavailable LEY, PAM J Primary Care Unavailable LEY, PAM J Primary Care Unavailable LEY, PAM J Referring Unavailable LEY, PAM J Primary Care Unavailable LEY, PAM J Attending Unavailable LEY, PAM J Referring Unavailable LEY, PAM J Primary Care Unavailable LEY, PAM J Attending Unavailable LEY, PAM J Referring Unavailable LEY, PAM J Primary Care Unavailable LEY, PAM J Attending Unavailable LEY, PAM J Referring Unavailable LEY, PAM J Primary Care Unavailable LEY, PAM J Referring Unavailable LEY, PAM J Primary Care Unavailable LEY, PAM J Attending Unavailable LEY, PAM J Referring Unavailable LEY, PAM J Primary Care Unavailable LEY, PAM J Attending Unavailable LEY, PAM J Referring Unavailable LEY, PAM J Primary Care Unavailable RAMBO MUÑOZ Referring Unavailable LEY, PAM J Primary Care Unavailable RAMBO MUÑOZ Attending Unavailable LEY, PAM J Referring Unavailable LEY, PAM J Primary Care Unavailable SOL BRICE Referring Unavailabl e LEY, PAM J Primary Care Unavailable RAMBO MUÑOZ Referring Unavailable LEY, PAM J Primary Care Unavailable LEY, PAM J Primary Care Unavailable ALIDA ALLEN Attending Unavailable ILDEFONSO BALLESTEROS Admitting Unavailable ALIDA ALLEN Attending Unavailable ALIDA ALLEN Referring Unavailable LEY, PAM Estrella Primary Care Unavailable RAMBO MUÑOZ Attending Unavailable LEY, PAM J Referring Unavailable LEY, PAM J Primary Care Unavailable SIMEON QUILES Referring Unavailable LEY, PAM J Primary Care Unavailable ALIDA ALLEN Attending Unavailable ALIDA ALLEN Referring Unavailable LEY, PAM J Primary Care Unavailable LEY, PAM J Primary Care Unavailable LYDIA ZUÑIGA Attending UnavailLYDIA Martino Attending UnavailLYDIA Martino Referring Unavaildeshawn e PAM LEY Primary Care Unavailable MELY LARIOS Attending Unavailable PAM LEY Primary Care Unavailable RODRIGUEZCHRISTINE Fermin Admitting Unavailable PAM LEY Primary Care Unavailable GIOVANNY GUSTAFSON Attending Unavailable THANIA MARTINEZ Admitting Unavailable MARC RIVERO Referring Unavailable PAM LEY Primary Care Unavailable Allergies Allergy Classification Reported Allergen(s) Allergy Type Date of Onset Reaction(s) Facility (1 source) 20880,00 Drug allergy (disorder) 01-23-2020 [facility] Medications Current Medications Medication Drug Class(es) Dates Sig (Normalized) Sig (Original) albuterol 0.83 mg/ml inhalation solution (6 sources) beta2-Adrenergic Agonist Start: 2024 take 3 mL by inhalation every six hours as needed for wheezing albuterol (PROVENTIL,VENTOLI N) 2.5 mg /3 mL (0.083 %) nebulizer solution Indications: Mild intermittent reactive airway disease with acute exacerbation , Pneumonia of both lower lobes due to infectious organism Inhale 3 mL (2.5 mg total) by nebulization every 6 (six) hours as needed for wheezing. 75 mL 2024 Active amLODIPine 5 mg oral tablet (17 sources) Dihydropyridine Calcium Channel Willi take 1 tablet by mouth once daily amLODIPine (NORVASC) 5 mg tablet Take 1 tablet (5 mg total) by mouth once daily. Active amoxicillin 875 mg / clavulanate 125 mg oral tablet (2 sources) Penicillin-class Antibacterial Start: 08-14-2024 End: 08-19-2024 take 1 tablet by mouth once amoxicillin-pot clavulanate (AUGMENTIN) 875-125 mg per tablet Take 1 tablet by mouth every 12 (twelve) hours for 5 days. 10 tablet 08/14/2024 08/19/2024 Active aspirin 81 mg chewable tablet (20 sources) Platelet Aggregation Inhibitor, Nonsteroidal Anti-inflammatory Drug Start: 09-30-2022 take 1 tablet by mouth once daily aspirin 81 MG chewable tablet Take 1 tablet by mouth daily 30 tablet 3 09/30/2022 Active take 1 tablet by mouth in the mo rning aspirin 81 mg Take 1 tablet (81 mg total) by mouth in the morning. Active take 1 tablet by mouth once stacy y aspirin 81 MG tablet Take 81 mg by mouth daily. 0 Active atorvastatin 80 mg oral tablet (19 sources) HMG-CoA Reductase Inhibitor Start: 09-29-2022 take 1 tablet by mouth in the morning atorvastatin (LIPITOR) 80 mg tablet Take 1 tablet (80 mg total) by mouth in the morning. 09/29/2022 Active azithromycin 250 mg oral tablet [...] (DULCOLAX) EC tablet 10 mg blood-glucose meter [facility] (11 sources) Start: 10-11-2020 blood-glucose meter [facility] Indications: Controlled type 2 diabetes mellitus with diabetic nephropathy, without long-term current use of insulin ([facility]) Monitor blood sugars four times daily and as needed 1 each 10/11/2020 Active Start: 10-11-2020 blood-glucose meter [facility] Indications: Controlled type 2 diabetes mellitus with diabetic nephropathy, without long-term current use of insulin ([facility]) Monitor blood sugars four times daily and as needed 1 each 0 10/11/2020 Active blood-glucose sensor (DEXCOM G6 SENSOR) device (5 sources) blood-glucose sensor (DEXCOM G6 SENSOR) device by miscellaneous route. 0 Active cephalexin 250 mg oral capsule (1 source) Cephalosporin Antibacterial Start: End: take 1 capsule by mouth in the morning, then take 1 capsule by mouth at bedtime CEPHalexin (KEFLEX) 250 mg capsule Indications: Acute cystitis without hematuria Take 1 capsule (250 mg total) by mouth in the morning and 1 capsule (250 mg total) before bedtime. Do all this for 10 days. 20 capsule 0 02/09/2024 02/19/2024 Active clopidogrel 75 mg oral tablet (20 sources) P2Y12 Platelet Inhibitor Start: take 1 tablet by mouth in the morning clopidogreL (PLAVIX) 75 mg tablet Take 1 tablet (75 mg total) by mouth in the morning. 09/29/2022 Active DEXCOM G6 [employer] misc (5 sources) Start: DEXCOM G6 [employer] misc 1 Device by drain unit route See Admin Instructions. 0 05/06/2023 Active DEXCOM G7 [employer] misc (3 sources) Start: DEXCOM G7 [employer] misc USE DIRECTED TO CONTINUOUSLY MONITOR BLOOD SUGAR 07/05/2024 Active DEXCOM G7 SENSOR device (6 sources) Start: DEXCOM G7 SENSOR device CHANGE SENSOR EVERY 10 DAYS, E11.65 03/22/2024 Active dextromethorphan hydrobromide 1.5 mg/ml / pyrilamine maleate 1.5 mg/ml oral solution (3 sources) Uncompetitive O-bpecmn-U-aspartate Receptor Antagonist, Sigma-1 Agonist Start: take 5 mL by mouth every eight hours as needed for cough and congestion pyrilamine-dextrome thorphan 7.5-7.5 mg/5 mL liquid Indications: Upper respiratory tract infection, unspecified type Take 5 mL by mouth every 8 (eight) hours as needed (cough and congestion). 100 mL 0 12/15/2023 Active fluticasone / salmeterol (6 sources) Corticosteroid, beta2-Adrenergic Agonist Start: take 1 puff(s) by inhalation in the morning fluticasone propion-salmeteroL (ADVAIR) 100-50 mcg/dose DISKUS Inhale 1 puff in the morning and 1 puff before bedtime. 60 each 2024 Active gabapentin 300 mg oral capsule (18 sources) Anti-epileptic Agent Start: End: take 1 capsule by mouth in the [...] ml insulin detemir 100 unt/ml pen injector (19 sources) Insulin Analog Start : 08-24 inject 15 [IU] by subcutaneous injection once daily insulin detemir U-100 (LEVEMIR) 100 unit/mL (3 mL) insulin pen Inject 15 Units under the skin nightly. 15 mL 12 08/24/2024 Active Start: 04-05-2024 insulin detemi r U-100 (LEVEMIR) 100 unit/mL (3 mL) insulin pen 30 units at bedtime 04/05/2024 Active Start: 08-31-2023 insulin detemi r U-100 (LEVEMIR FLEXPEN) 100 unit/mL (3 mL) insulin pen Indications: Controlled type 2 diabetes mellitus with diabetic nephropathy, without long-term current use of insulin ([facility]) INJECT 30 UNITS UNDER THE SKIN NIGHTLY [...] ml insulin lispro 100 unt/ml pen injector (8 sources) Insulin Analog Start: 07-05-2024 insulin lispro (HumaLOG) 100 unit/mL insulin pen 08 units at each meals 07/05/2024 Active Start: 08-18-2023 inject 2 [IU] by sub cutaneous injection four times daily at mealtime insulin [...] 08/18/2023 Active letrozole 2.5 mg oral tablet (12 sources) Aromatase Inhibitor Start: 03-18-2023 End: 03-12-2024 take 1 tablet by mouth once daily letrozole (FEMARA) 2.5 mg chemo tablet Indications: 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 female breast, unspecified estrogen receptor status ([facility]) TAKE 1 TABLET BY MOUTH EVERY DAY 90 tablet 3 01/04/2024 Active 24 hr metoprolol succinate 25 mg extended release oral tablet (20 sources) beta-Adrenergic Willi Start: 06-05-2024 take 1 tablet by mouth once daily metoprolol succinate XL (TOPROL XL) 25 mg 24 hr tablet Indications: Essential hypertension Take 1 tablet (25 mg total) by mouth once daily. 90 tablet 2 06/05/2024 Active Start: 07-08-2023 End: 12-15-2023 take 1 tablet by mouth once daily metoprolol succinate XL (TOPROL XL) 25 mg 24 hr tablet Indications: Essential hypertension Take 1 tablet (25 mg total) by mouth once daily. 90 tablet 2 12/15/2023 Active take 1 tablet by wilson th once daily at mealtime metoprolol tartrate (LOPRESSOR) 50 mg tablet 1 tablet with food Orally once daily Active take 1 tablet by wilson th twice daily metoprolol (LOPRESSOR) 50 MG tablet Take 50 mg by mouth 2 times daily. 0 Active miscellaneous medical supply misc (5 sources) Start: 01-01-2021 miscellaneous medical supply misc Indications: Medication management 1 Unit by miscellaneous route See Admin Instructions. Split oral medication as indicated 1 each 0 01/01/2021 Active nystatin 100 unt/mg topical powder (1 source) Polyene Antifungal Start: 09-06-2024 nystatin (MYCOSTATIN) powder Indications: Fabby infection of flexural skin Apply 1 Application topically in the morning and 1 Application at noon and 1 Application in the evening and 1 Application before bedtime. 60 g 1 09/06/2024 Active oxybutynin chloride 5 mg oral tablet (6 sources) Cholinergic Muscarinic Antagonist take 1 tablet by mouth once daily oxybutynin (DITROPAN) 5 MG tablet Take 5 mg by mouth daily 0 Active pantoprazole 40 mg delayed release oral tablet (18 sources) Proton Pump Inhibitor Start: 03-05-2024 take 1 tablet by mouth in the morning pantoprazole (PROTONIX) 40 mg EC tablet TAKE 1 TABLET (40 MG TOTAL) BY MOUTH IN THE MORNING 03/05/2024 Active Start: 08-10-2023 End: 12-15-2023 take 1 tablet [...] mouth every morning (before breakfast) 0 Active predniSONE 20 mg oral tablet (1 source) Start: 08-14-2024 End: 08-17-2024 take 2 tablets by mouth in the morning predniSONE (DELTASONE) 20 mg tablet Take 2 tablets (40 mg total) by mouth in the morning for 3 days. 6 tablet 08/14/2024 08/17/2024 Active sertraline 100 mg oral tablet (19 sources) Serotonin Reuptake Inhibitor Start: 06-05-2024 take 1 tablet by mouth in the morning sertraline (ZOLOFT) 100 mg tablet Indications: Major depressive disorder in partial remission, unspecified whether recurrent (CMS-HCC) Take 1 tablet (100 mg total) by mouth in the morning. 90 tablet 2 06/05/2024 Active Start: 08-10-2023 End: 12-15-2023 take 1 tablet [...] 0 Active SITagliptin 50 mg oral tablet (20 sources) Dipeptidyl Peptidase 4 Inhibitor Start: 03-12-2024 take 1 tablet by mouth in the morning JANUVIA 50 mg tablet TAKE 1 TABLET (50 MG TOTAL) BY MOUTH IN THE MORNING 03/12/2024 Active Start: 08-10-2023 End: 12-15-2023 take 1 tablet by mouth in the morning SITagliptin phosphate (JANUVIA) 50 mg tablet Indications: 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 ([facility]) Take 1 tablet (50 mg total) by mouth in the morning. 90 tablet 2 12/15/2023 Active take 1 tablet by wilson th once daily sitaGLIPtin (JANUVIA) 50 MG tablet Take 50 mg by mouth daily. 0 Active traZODone hydrochloride 100 mg oral tablet (12 sources) Serotonin Reuptake Inhibitor Start: 03-02-2024 take 1 tablet by mouth once daily traZODone (DESYREL) 100 mg tablet Indications: Insomnia, unspecified type TAKE 1 TABLET BY MOUTH EVERY DAY AT NIGHT 90 tablet 1 03/02/2024 Active Start: 09-28-2023 End: 12-06-2023 take 1 tablet by mouth once daily traZODone (DESYREL) 100 mg tablet Indications: Insomnia, unspecified type TAKE 1 TABLET BY MOUTH EVERY DAY AT NIGHT 90 tablet 1 12/07/2023 Active Completed/Discontinued Medications Medication Drug Class(es) Dates Sig (Normalized) Sig (Original) acetaminophen 325 mg oral tablet (12 sources) Start: 12-07-2022 take 650 mg by [...] 24 hours. Recovery(Cath) take 2 tablets by ks ut every six hours as needed for pain acetaminophen (TYLENOL) 500 mg tablet Ta ke 2 tablets (1,000 mg total) by mouth every 6 (six) hours as needed for pain. Active cefTRIAXone (ROCEPHIN) 1 g in lidocaine [...] injecti on 4 mg polyethylene glycol 3350 [id number] mg powder for oral solution (1 source) Osmotic Laxative Start: 12-09-2022 End: 12-09-2022 polyethylene glycol (GLYCOLAX) packet 17 g 1000 ml sodium chloride 9 mg/ml injection (9 sources) Start: 01-13-2023 End: 01-13-2023 0.9 % sodium chloride infusion Start: 12-07-2022 take 1 dose intraven ously twice daily 5-40 mL, IntraVENous, EVERY 12 HOURS SCHEDULED (2 times per day), First dose on 12/07/22 at 2100, Until Discontinued For Line Patency: [...] Date Documented Date Episodic/Chronic Acute myocardial infarction (19 sources) Myocardial infarction; Translations: [Non-ST elevation (NSTEMI) myocardial infarction] Onset: 2 09-29-2022 Chronic Asthma (15 sources) Unspecified asthma, uncomplicated; Translations: [Uncomplicated asthma] Onset: 0 06-14-2024 Chronic Cancer of breast (14 sources) Malignant neoplasm of upper-outer quadrant of female breast; Translations: [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 female breast] Onset: 3 11-25-2023 Chronic Cardiac dysrhythmias (1 source) Unspecified atrial fibrillation; Translations: [Unspecified atrial fibrillation] Onset: 4 Chronic Chronic kidney disease (18 sources) Chronic kidney disease; Translations: [Chronic kidney disease, unspecified] Onset: 2 01-13-2023 Chronic Chronic kidney disease (3 sources) Chronic kidney disease; Translations: [Chronic kidney disease, stage 3a] Onset: 2 Chronic obstructive pulmonary disease and bronchiectasis (1 source) Chronic obstructive pulmonary disease, unspecified; Translations: [Chronic obstructive pulmonary disease, unspecified] Onset: 2 Chronic Conduction disorders (11 sources) Left bundle branch block; Translations: [Left bundle-branch block, unspecified] Onset: 0 03-26-2020 Chronic Congestive heart failure; nonhypertensive (13 sources) Acute on chronic diastolic heart failure; Translations: [Acute on chronic diastolic (congestive) heart failure] Onset: 2 Resolved: 4 10-05-2022 Chronic Coronary atherosclerosis and other heart disease (20 sources) Disorder of coronary artery; Translations: [Atherosclerotic heart disease of [place] coronary artery without angina pectoris] Onset: 1 01-13-2023 Chronic Deficiency and other anemia (11 sources) Anemia of chronic disease; Translations: [Anemia in other chronic diseases classified elsewhere] Onset: 7 04-01-2023 Chronic Deficiency and other anemia (5 sources) Anemia; Translations: [Anemia, unspecified] Onset: 3 01-13-2023 Episodic Deficiency and other anemia (6 sources) Iron deficiency anemia secondary to inadequate dietary iron intake; Translations: [Other iron deficiency anemias] Onset: 4 08-12-2024 Episodic Deficiency and other anemia (1 source) Anemia, unspecified; Translations: [Anemia, unspecified] Onset: 4 Episodic Diabetes mellitus with complications (20 sources) Type 2 diabetes mellitus; Translations: [Type 2 diabetes mellitus with diabetic neuropathy, unspecified] Onset: 7 01-13-2023 Chronic Diabetes mellitus without complication (1 source) Type 2 diabetes mellitus without complications; Translations: [TYPE 2 DM WITHOUT COMPLICATIONS] Onset: 1 Chronic Disorders of lipid metabolism (1 source) Pure hypercholesterolemia, unspecified; Translations: [PURE HYPERCHOLESTEROLEMIA UNSPEC] Onset: 1 Chronic Esophageal disorders (13 sources) Gastro-esophageal reflux disease without esophagitis; Translations: [Gastroesophageal reflux disease without esophagitis] Onset: 7 03-28-2018 Chronic Essential hypertension (20 sources) Essential (primary) hypertension; Translations: [Essential hypertension] Onset: 9 Resolved: 2 04-01-2023 Chronic Fluid and electrolyte disorders (6 sources) Lactic acidosis; Translations: [Lactic acidosis] Onset: 4 06-14-2024 Episodic Heart valve disorders (20 sources) Nonrheumatic aortic (valve) stenosis; Translations: [Aortic valve disorders] Onset: 2 10-13-2022 Chronic Hypertension with complications and secondary hypertension (6 sources) Hypertensive heart AND renal disease; Translations: [Hypertensive heart and chronic kidney disease with heart failure and stage 1 through stage 4 chronic kidney disease, or unspecified chronic kidney disease] Onset: 3 06-14-2024 Chronic Immunizations and screening for infectious disease (2 sources) Encounter for immunization; Translations: [Needs influenza immunization] Onset: 4 08-28-2024 Episodic Mood disorders (20 sources) Major depressive disorder, single episode, unspecified; Translations: [Recurrent major depressive episodes, moderate ] Onset: 9 Resolved: 0 07-17-2019 Chronic Mycoses (1 source) Candidal intertrigo; Translations: [Candidiasis of skin and nail] 09-06-2024 Episodic Osteoarthritis (20 sources) Primary gonarthrosis, bilateral; Translations: [Bilateral primary osteoarthritis of knee] Onset: 8 10-26-2018 Chronic Other aftercare (3 sources) manager long term care (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; Translations: [EDUCATION COUNSELOR CURRENT USE OF INSULIN] Onset: 1 Episodic Other aftercare (1 source) Other terminal make up operator (current) drug therapy; Translations: [OTH EDUCATION COUNSELOR CURRENT 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] Onset: 1 Episodic Other circulatory disease (6 sources) History of angioplasty; Translations: [Peripheral vascular angioplasty status with implants and grafts] Onset: 3 12-07-2022 Chronic Other endocrine disorders (2 sources) Hypoglycemia, unspecified; Translations: [Hypoglycemia, unspecified] Onset: 4 Chronic Other endocrine disorders (1 source) Hypoglycemia; Translations: [Hypoglycemia, unspecified] 08-28-2024 Chronic Other nervous system disorders (11 sources) Cerebral ventriculomegaly; Translations: [Other specified disorders of brain] Onset: 9 07-24-2020 Chronic Other nervous system disorders (12 sources) Normal pressure hydrocephalus; Translations: [(Idiopathic) normal pressure hydrocephalus] Onset: 9 07-24-2020 Chronic Other nervous system disorders (3 sources) (Idiopathic) normal pressure hydrocephalus; Translations: [(Idiopathic) normal pressure hydrocephalus] Onset: 0 Chronic Other nervous system disorders (6 sources) Difficulty walking; Translations: [Difficulty in walking, not elsewhere classified] Onset: 4 06-14-2024 Chronic Other nervous system disorders (1 source) Tremor, unspecified; Translations: [Tremor, unspecified] Onset: 3 Episodic Other nutritional; endocrine; and metabolic disorders (6 sources) Obesity; Translations: [Obesity, unspecified] Onset: 4 06-14-2024 Chronic Other nutritional; endocrine; and metabolic disorders (6 sources) Hypomagnesemia; Translations: [Hypomagnesemia] Onset: 4 07-31-2024 Chronic Peripheral and visceral atherosclerosis (14 sources) Peripheral vascular disease, unspecified; Translations: [Peripheral vascular disease] Onset: 7 05-25-2017 Chronic Residual codes; unclassified (2 sources) Obstructive sleep apnea (adult) (pediatric); Translations: [OBSTRUCTIVE SLEEP APNEA] Onset: 1 Chronic Residual codes; unclassified (17 sources) Obstructive sleep apnea syndrome; Translations: [Obstructive [...] system] Onset: 3 Episodic Residual codes; unclassified (5 sources) Altered mental status; Translations: [Altered mental status, unspecified] Onset: 4 08-23-2024 Episodic Residual codes; unclassified (1 source) Altered mental status, unspecified; Translations: [Altered mental status, unspecified] Onset: 4 Episodic Respiratory failure; insufficiency; arrest (adult) (8 sources) Acute hypoxemic and hypercapnic respiratory failure; Translations: [Acute respiratory failure with hypoxia] Onset: 4 08-12-2024 Episodic Secondary malignancies (6 sources) Secondary malignant neoplasm of bone; Translations: [Secondary malignant neoplasm of bone] Onset: 4 03-09-2024 Chronic Septicemia (except in labor) (7 sources) Sepsis without acute organ dysfunction; Translations: [Sepsis, unspecified organism] Onset: 4 08-12-2024 Episodic Spondylosis; intervertebral disc disorders; other back problems (20 sources) Herniation of nucleus pulposus of lumbar [...] [CONTACT W/AND (SUSP) EXPOS COVID-19] Onset: 1 Unclassified (1 source) Weakness - Generalized Onset: 4 Unclassified (1 source) Low Blood Sugar - No Symptoms Onset: 4 Unclassified (1 source) Low Blood Sugar - Symptomatic Onset: 4 Unclassified (1 source) ill Onset: 4 Urinary tract infections (20 sources) Acute cystitis without hematuria; Translations: [Acute cystitis] Onset: 9 05-26-2022 Episodic Viral infection (6 sources) Disease caused by 2019-nCoV; Translations: [COVID-19] Onset: 4 08-12-2024 Episodic Viral infection (1 source) COVID-19; Translations: [COVID-19] Onset: 4 Past or Other Problems Problem Classification Problem Date Documented Da te Episodic/Chronic Acute and unspecified renal failure (19 sources) Acute injury of kidney; Translations: [Acute kidney failure, unspecified] Onset: 3 Episodic Administrative/social admission (12 sources) Finding of activity of daily living; Translations: [Limitation of activities due to disability] Onset: 4 06-14-2024 Episodic Bacterial infection; unspecified site (12 sources) Methicillin resistant Staphylococcus aureus infection; Translations: [Methicillin resistant Staphylococcus aureus infection as the cause of diseases classified elsewhere] Onset: 4 06-14-2024 Episodic Conditions associated with dizziness or vertigo (20 sources) Dizziness; Translations: [Dizziness and giddiness] Onset: 9 Resolved: 1 12-11-2019 Episodic Gastrointestinal hemorrhage (11 sources) Gastrointestinal hemorrhage; Translations: [Gastrointestinal hemorrhage, unspecified] Onset: 9 10-17-2019 Episodic Genitourinary symptoms and ill-defined conditions (14 sources) Total urinary incontinence; Translations: [Continuous leakage] Onset: 9 Resolved: 0 12-14-2019 Chronic Heart valve disorders (11 sources) Heart murmur; Translations: [Cardiac murmur, unspecified] Onset: 0 03-26-2020 Episodic Malaise and fatigue (7 sources) Asthenia; Translations: [Weakness] Onset: 4 06-14-2024 Episodic Mood disorders (11 sources) Mood disorders Onset: 3 Resolved: 4 08-17-2023 Other circulatory disease (1 source) Other specified symptoms and signs involving the circulatory and respiratory systems; Translations: [Other specified symptoms and signs involving the circulatory and respiratory systems] Onset: 4 Episodic Other connective tissue disease (4 sources) Paraparesis; Translations: [Other symptoms and signs involving the musculoskeletal system] Onset: 8 Resolved: 0 05-28-2020 Episodic Other connective tissue disease (7 sources) Other symptoms and signs involving the musculoskeletal system; Translations: [Other musculoskeletal symptoms referable to limbs] Onset: 8 Resolved: 0 05-28-2020 Episodic Other connective tissue disease (6 sources) Muscle weakness; Translations: [Muscle weakness (generalized)] Onset: 4 06-14-2024 Episodic Other fractures (11 sources) Closed fracture pubis; Translations: [Unspecified fracture of left pubis, subsequent encounter for fracture with routine healing] Onset: 3 04-01-2023 Episodic Other gastrointestinal disorders (6 sources) Constipation; Translations: [Constipation, unspecified] Onset: 0 06-14-2024 Episodic Other lower respiratory disease (3 sources) Shortness of breath; Translations: [Shortness of breath] Onset: 2 Episodic Other lower respiratory disease (1 source) Hypoxemia; Translations: [Hypoxemia] Onset: 2 Episodic Other lower respiratory disease (11 sources) Dyspnea; Translations: [Shortness of breath] Onset: 2 10-05-2022 Episodic Other lower respiratory disease (11 sources) H/O: pneumonia; Translations: [Personal history of pneumonia (recurrent)] Onset: 2 10-05-2022 Episodic Other lower respiratory disease (1 source) Cough Onset: 4 Episodic Other nervous system disorders (17 sources) Tremor; Translations: [Tremor, unspecified] Onset: 3 01-13-2023 Episodic Other nervous system disorders (11 sources) Finding related to ability to move; Translations: [Other abnormalities of gait and mobility] Onset: 1 04-28-2022 Episodic Other screening for suspected conditions (not mental disorders or infectious disease) (11 sources) D-dimer above reference range; Translations: [Other specified abnormal findings of blood chemistry] Onset: 2 10-05-2022 Episodic Other upper respiratory disease (1 source) Nasal congestion Onset: 4 Episodic Other upper respiratory infections (2 sources) Upper respiratory infection; Translations: [Acute upper respiratory infection, unspecified] Onset: 4 12-15-2023 Episodic Pneumonia (except that caused by tuberculosis or sexually transmitted disease) (16 sources) Community acquired pneumonia; Translations: [Unspecified bacterial pneumonia] Onset: 2 09-28-2022 Episodic Residual codes; unclassified (11 sources) Edema of lower extremity; Translations: [Localized edema] Onset: 0 07-24-2020 Episodic Residual codes; unclassified (11 sources) Denture present; Translations: [Presence of dental prosthetic device (complete) (partial)] Onset: 9 07-24-2020 Episodic Residual codes; unclassified (7 sources) Insomnia; Translations: [Insomnia, unspecified] Onset: 4 12-06-2023 Episodic Residual codes; unclassified (1 source) Insomnia, unspecified; Translations: [Insomnia, unspecified] Onset: 4 Episodic Residual codes; unclassified (1 source) Pain, unspecified; Translations: [Pain, unspecified] Onset: 4 Episodic Residual codes; unclassified (1 source) Estrogen receptor positive status [ER+]; Translations: [Estrogen receptor positive status (ER+)] Onset: 3 Episodic Spondylosis; intervertebral disc disorders; other back problems (20 sources) Lumbar radiculopathy; Translations: [Radiculopathy, lumbar region] Onset: 8 05-27-2021 Episodic Unclassified (11 sources) Onset: 3 Resolved: 4 09-20-2023 Results Test Name Value Interpretation Reference Range Facility CBC AND AUTO DIFFon 08-24-20 24 ABSOLUTE BASOPHIL 0.0 X10E9/L Normal 0.0-0.2 [facility] Comment on above: Performed By: #### C BC, BMP, 1750-7, 84801-8, 2777-1, 2731-8, 85645-1 #### [facility] ([id number]) [address] [facility], [address] [address] ABSOLUTE NEUTROPHIL 6.0 X10E9/L Normal 1.5-6.6 [facility] Comment on above: Performed By: #### Renita BC, BMP, 1750-7, 59179-9, 2777-1, 2731-8, 13754-2 #### [facility] ([id number]) [address] [facility], [facility] [address] [place] [address] Basophils/100 WBC (Bld) 0.3 % Normal [facility] Comment on above: Performed By: #### Renita BC, BMP, 1750-7, 45531-6, 2777-1, 2731-8, 09342-4 #### [facility] ([id number]) [address] [place] [address], [facility] [place] [address] Eosinophils (Bld) [#/Vol] 0.3 10*3/uL Normal 0.0-0.4 [facility] Comment on above: Performed By: #### Renita BC, BMP, 1750-7, 45124-4, 2777-1, 2731-8, 40770-4 #### [facility] ([id number]) [address] [facility], [facility] [place] [address] Eosinophils/100 WBC (Bld) 2.7 % Normal [facility] Comment on above: Performed By: #### C BC, BMP, 1751-05, 26028-7, 2776-, 273-8, 89205-8 #### [facility] ([id number]) [address], [address] [place] [address] Erythrocyte distribution width (RBC) [Ratio] 15.9 % High 11.5-15.0 [facility] Comment on above: Performed By: #### C BC, BMP, 1751-05, 06545-0, 2776-1, 273-8, 82132-4 #### [facility] ([id number]) [address], [address] [place] [address] Hematocrit (Bld) [Volume fraction] 29.0 % Low 35-47 [facility] Comment on above: Performed By: #### C BC, BMP, 1751-05, , 2776-, 2730-8, 15231-6 #### [facility] ([id number]) [address], [address] [place] [address] Hemoglobin (Bld) [Mass/Vol] 9.5 g/dL Low 11.7-15.5 [facility] Comment on above: Performed By: #### Renita BC, BMP, 1751-05, , 2776-, 2730-8, 37655-3 #### [facility] ([id number]) [address], [address] [place] [address] Lymphocytes (Bld) [#/Vol] 3.0 10*3/uL Normal 1.0-3.5 [facility] Comment on above: Performed By: #### C BC, BMP, 1750-, 71508-9, 2776-, 273-8, 18098-5 #### [facility] ([id number]) [address], [address] [place] [address] Lymphocytes/100 WBC (Bld) 28.8 % Normal [facility] Comment on above: Performed By: #### C ITFFANY, BMP, 1750-, 52592-3, 2776-, 2730-8, 78986-8 #### [facility] ([id number]) [address], [address] [place] [address] MCH (RBC) [Entitic mass] 27.7 pg Normal 27-34 [facility] Comment on above: Performed By: #### C TIFFANY, BMP, 1751-05, 03835-8, 2776-, 2730-8, 80281-6 #### [facility] ([id number]) [address], [address] [place] [address] MCHC (RBC) [Mass/Vol] 32.7 g/dL Normal 32-36 [facility] Comment on above: Performed By: #### Renita ALLEN, BMP, 1751-05, , 2776-, 2730-8, 74209-8 #### [facility] ([id number]) [address], [address] [place] [address] MCV (RBC) [Entitic vol] 85 fL Normal 80-100 [facility] Comment on above: Performed By: #### Renita ALLEN, BMP, 1751-05, 37653-2, 2776-, 2730-8, 03259-0 #### [facility] ([id number]) [address], [address] [place] [address] Monocytes (Bld) [#/Vol] 1.0 10*3/uL High 0-0.9 [facility] Comment on above: Performed By: #### Renita BC, BMP, 1751-05, 44777-9, 2776-, 273-8, 60220-7 #### [facility] ([id number]) [address], [address] [place] [address] Monocytes/100 WBC (Bld) 9.8 % Normal [facility] Comment on above: Performed By: #### C BC, BMP, 1750-7, 88275-6, 2777-1, 2731-8, 56354-2 #### [facility] ([id number]) [address], [address] [place] [address] Neutrophils/100 WBC (Bld) 58.4 % Normal [facility] Comment on above: Performed By: #### C BC, BMP, 1750-, 28676-9, 7-1, 2731-8, 07439-3 #### [facility] ([id number]) [address], [address] [place] [address] Platelet mean volume (Bld) [Entitic vol] 8.7 fL Normal 7-12 [facility] Comment on above: Performed By: #### Renita BC, BMP, 1751-05, 90023-0, 2776-1, 273-8, 11696-1 #### [facility] ([id number]) [address], [address] [place] [address] Platelets (Bld) [#/Vol] 189 10*3/uL Normal 150-450 [facility] Comment on above: Performed By: #### Renita BC, BMP, 1750-, 07979-2, 2776-1, 273-8, 77022-6 #### [facility] ([id number]) [address], [address] [place] [address] RBC COUNT 3.43 X10E12/L Low 3.80-5.20 [facility] Comment on above: Performed By: #### Renita BC, BMP, 1750-, 47844-9, 2776-1, 273-8, 93481-7 #### [facility] ([id number]) [address], [address] [place] [address] WBC (Bld) [#/Vol] 10.2 10*3/uL Normal 4.0-11.0 [facility] Comment on above: Performed By: #### C BC, BMP, 175-7, 21836-9, 2777-1, 2731-8, 73955-2 #### [facility] ([id number]) [address], [address] [place] [address] COMPREHENSIVE METABOLIC PANE Dickson 08-24-2024 Albumin [Mass/Vol] 3.0 g/dL Low 3.2-5.3 [facility] Comment on above: Performed By: #### C BC, BMP, 1750-7, 85395-1, 2777-1, 2731-8, 13912-9 #### [facility] ([id number]) [address], [address] [place] [address] ALP [Catalytic activity/Vol] 70 U/L Normal 39-130 [facility] Comment on above: Performed By: #### Renita BC, BMP, 175-7, 11640-7, 2777-1, 2731-8, 99299-5 #### [facility] ([id number]) [address], [address] [place] [address] ALT [Catalytic activity/Vol] 15 U/L Normal 0-31 [facility] Comment on above: Performed By: #### Renita BC, BMP, 175-7, 81444-0, 2777-1, 2731-8, 62941-0 #### [facility] ([id number]) [address], [address] [place] [address] Anion gap [Moles/Vol] 7 mmol/L Normal 5-15 [facility] Comment on above: Performed By: #### C BC, BMP, 175-7, 76037-0, 2777-1, 2731-8, 44227-2 #### [facility] ([id number]) [address], [address] [place] [address] AST [Catalytic activity/Vol] 20 U/L Normal 0-41 [facility] Comment on above: Performed By: #### C BC, BMP, 1750-7, 94071-7, 2777-1, 2731-8, 47080-9 #### [facility] ([id number]) [address], [address] [place] [address] Bilirubin [Mass/Vol] 0.8 mg/dL Normal 0.3-1.2 [facility] Comment on above: Performed By: #### C BC, BMP, 1750-7, 51607-0, 2777-1, 2731-8, 50610-9 #### [facility] ([id number]) [address], [address] [place] [address] Calcium [Mass/Vol] 8.4 mg/dL Low 8.5-10.5 [facility] Comment on above: Performed By: #### C BC, BMP, 1750-7, 07862-7, 7-1, 2731-8, 32031-2 #### [facility] ([id number]) [address], [address] [place] [address] Chloride [Moles/Vol] 105 mmol/L Normal 98-109 [facility] Comment on above: Performed By: #### Renita BC, BMP, 1750-7, 95010-4, 7-1, 2731-8, 58594-6 #### [facility] ([id number]) [address], [address] [place] [address] CO2 [Moles/Vol] 24 mmol/L Normal 22-32 [facility] Comment on above: Performed By: #### C BC, BMP, 1750-7, 39408-3, 2777-1, 2731-8, 13445-2 #### [facility] ([id number]) [address], [address] [place] [address] Creatinine [Mass/Vol] 1.36 mg/dL High 0.40-1.00 [facility] Comment on above: Result Comment: METH OD TRACEABLE TO IDMS STANDARD Performed By: #### C TIFFANY, BMP, 1750-7, 84624-6, 2777-1, 2731-8, 65936-8 #### [facility] ([id number]) [address], [address] [place] [address] GFR/1.73 sq M.predicted among non-blacks MDRD (S/P/Bld) [Vol rate/Area] 40 mL/min/{1.73_m2} Low >59 [facility] Comment on above: Result Comment: Reported eGFR is based on the CKD-EPI 2020 equation that does not use a race coefficient. Performed By: #### C TIFFANY, BMP, 1750-7, 56850-0, 2777-1, 2731-8, 01105-8 #### [facility] ([id number]) [address], [address] [place] [address] Glucose [Mass/Vol] 215 mg/dL High 65-99 [facility] Comment on above: Performed By: #### C TIFFANY, BMP, 1751-05, 71151-7, 7-1, 2731-8, 46817-2 #### [facility] ([id number]) [address], [address] [place] [address] Potassium [Moles/Vol] 4.7 mmol/L Normal 3.5-5.0 [facility] Comment on above: Performed By: #### C BC, BMP, 1750-7, 63063-8, 2777-1, 2731-8, 99835-5 #### [facility] ([id number]) [address], [address] [place] [address] Protein [Mass/Vol] 6.0 g/dL Normal 6.0-8.0 [facility] Comment on above: Performed By: #### C BC, BMP, 1750-7, 50284-5, 2777-1, 2731-8, 93575-4 #### [facility] ([id number]) [address], [address] [place] [address] Sodium [Moles/Vol] 136 mmol/L Normal 134-146 [facility] Comment on above: Performed By: #### C TIFFANY, BMP, 1750-, 92454-6, 2776-, 2730-8, 03844-9 #### [facility] ([id number]) [address], [address] [place] [address] Urea nitrogen [Mass/Vol] 16 mg/dL Normal 5-27 [facility] Comment on above: Performed By: #### C TIFFANY, BMP, 1751-05, , 2776-, 2730-8, 82363-8 #### [facility] ([id number]) [address], [address] [place] [address] Glucose Glucometer (BldC) [M ass/Vol]on 08-24-2024 Glucose [Mass/Vol] 358 mg/dL High 65-99 [facility] MAGNESIUMon 08-24-2024 Magnesium [Mass/Vol] 2.5 mg/dL Normal 1.8-2.6 [facility] Comment on above: Performed By: #### C TIFFANY, BMP, 1751-05, 80259-3, 2776-, 2730-8, 29377-0 #### [facility] ([id number]) [address], [address] [place] [address] BLOOD CULTUREon 08-23-2024 Bacteria identified Aer cx Nom (Bld) SPECIMEN NOTES L HAND CULTURE RESULTS NO GROWTH 5 DAYS Normal [facility] Comment on above: Performed By: #### C TIFFANY, BMP, 1750-, 32311-1, 2776-, 2730-8, 92250-3 #### [facility] ([id number]) [address], [address] [place] [address] Bacteria identified Aer cx Nom (Bld) SPECIMEN NOTES R HAND SOV CULTURE RESULTS NO GROWTH 5 DAYS Normal [facility] Comment on above: Performed By: #### C BC, BMP, 1751-7, 80317-5, 2777-1, 2731-8, 14650-7 #### [facility] ([id number]) [address] [place] [address] CBC AND AUTO DIFFon 08-23-20 24 Band form neutrophils/100 WBC (Bld) 1.0 % Normal [facility] Comment on above: Performed By: #### C BCA, BMP #### [facility] ([id number]) [address] [place] [address] #### HA1C #### [facility] ([id number]) [address] [facility] [place] [address] Erythrocyte distribution width (RBC) [Ratio] 15.7 % High 11.5-15.0 [facility] Comment on above: Performed By: #### C BCA, BMP #### [facility] ([id number]) [address] [place] [address] #### HA1C #### [facility] ([id number]) [address] [place] [address] Hematocrit (Bld) [Volume fraction] 36.1 % Normal 35-47 [facility] Comment on above: Performed By: #### C BCA, BMP #### [facility] ([id number]) [address] [place] [address] #### HA1C #### [facility] ([id number]) [address], [address] [place] [address] Hemoglobin (Bld) [Mass/Vol] 11.5 g/dL Low 11.7-15.5 [facility] Comment on above: Performed By: #### C BCA, BMP #### [facility] ([id number]) [address] [place] [address] #### HA1C #### [facility] ([id number]) [address] [place] [address] LYMPHOCYTE, ATYPICAL 1.0 % Normal [facility] Comment on above: Performed By: #### C BCA, BMP #### [facility] ([id number]) [address] [place] [address] #### HA1C #### [facility] ([id number]) [address], [address] [place] [address] Lymphocytes (Bld) [#/Vol] 2.6 10*3/uL Normal 1.0-3.5 [facility] Comment on above: Performed By: #### C BCA, BMP #### [facility] ([id number]) [address] [place] [address] #### HA1C #### [facility] ([id number]) [address] [place] [address] Lymphocytes/100 WBC (Bld) 18.0 % Normal [facility] Comment on above: Performed By: #### C BCA, BMP #### [facility] ([id number]) [address] [place] [address] #### HA1C #### [facility] ([id number]) [address] [place] [address] MCH (RBC) [Entitic mass] 27.2 pg Normal 27-34 [facility] Comment on above: Performed By: #### C BCA, BMP #### [facility] ([id number]) [address] [place] [address] #### HA1C #### [facility] ([id number]) [address] [place] [address] MCHC (RBC) [Mass/Vol] 32.0 g/dL Normal 32-36 [facility] Comment on above: Performed By: #### Renita BCA, BMP #### [facility] ([id number]) [address] [place] [address] #### HA1C #### [facility] ([id number]) [address] [place] [address] MCV (RBC) [Entitic vol] 85 fL Normal 80-100 [facility] Comment on above: Performed By: #### C NATIVIDAD, BMP #### [facility] ([id number]) [address] [place] [address] #### HA1C #### [facility] ([id number]) [address] [place] [address] Monocytes (Bld) [#/Vol] 0.8 10*3/uL Normal 0-0.9 [facility] Comment on above: Performed By: #### C NATIVIDAD, BMP #### [facility] ([id number]) [address] [place] [address] #### HA1C #### [facility] ([id number]) [address] [place] [address] Monocytes/100 WBC (Bld) 6.0 % Normal [facility] Comment on above: Performed By: #### C BCA, BMP #### [facility] ([id number]) [address] [place] [address] #### HA1C #### [facility] ([id number]) [address] [place] [address] MYELOCYTE 1.0 % Normal [facility] Comment on above: Performed By: #### Renita BCA, BMP #### [facility] ([id number]) [address] [place] [address] #### HA1C #### [facility] ([id number]) [address] [place] [address] Neutrophils (Bld) [#/Vol] 10.5 10*3/uL High 1.5-6.6 [facility] Comment on above: Performed By: #### Renita HENSON, BMP #### [facility] ([id number]) [address] [place] [address] #### HA1C #### [facility] ([id number]) [address] [place] [address] OVALOCYTE 1+ Abnormal NONE [facility] Comment on above: Performed By: #### Renita HENSON, BMP #### [facility] ([id number]) [address] [place] [address] #### HA1C #### [facility] ([id number]) [address] [place] [address] Platelet mean volume (Bld) [Entitic vol] 8.3 fL Normal 7-12 [facility] Comment on above: Performed By: #### C NATIVIDAD, BMP #### [facility] ([id number]) [address] [place] [address] #### HA1C #### [facility] ([id number]) [address] [place] [address] Platelets (Bld) [#/Vol] 262 10*3/uL Normal 150-450 [facility] Comment on above: Performed By: #### C BCA, BMP #### [facility] ([id number]) [address] [place] [address] #### HA1C #### [facility] ([id number]) [address] [place] [address] RBC COUNT 4.25 X10E12/L Normal 3.80-5.20 [facility] Comment on above: Performed By: #### Renita BCA, BMP #### [facility] ([id number]) [address] [place] [address] 00005 #### HA1C #### [facility] ([id number]) [address] [facility] [place] [address] SEG NEUTROPHIL 73.0 % Normal [facility] Comment on above: Performed By: #### C BCA, BMP #### [facility] ([id number]) [address] [place] [address] #### HA1C #### [facility] ([id number]) [address] [facility] [facility] [place] [address] TOXIC GRANULATION 1+ Abnormal NONE [facility] Comment on above: Performed By: #### C BCA, BMP #### [facility] ([id number]) [address] [place] [address] #### HA1C #### [facility] ([id number]) [address] [place] [address] WBC (Bld) [#/Vol] 14.0 10*3/uL High 4.0-11.0 [facility] Comment on above: Performed By: #### C BCA, BMP #### [facility] ([id number]) [address] [place] [address] #### HA1C #### [facility] ([id number]) [address] [place] [address] CK [Catalytic activity/Vol]o n 08-23-2024 CPK 48 U/L Normal 24-170 [facility] Comment on above: Performed By: #### C BC, BMP, 9358-7, 56385-3, 2777-1, 2731-8, 24284-3 #### [facility] ([id number]) [address] [place] [address] COMPREHENSIVE METABOLIC PANE Dickson 08-23-2024 Albumin [Mass/Vol] 3.8 g/dL Normal 3.2-5.3 [facility] Comment on above: Performed By: #### C BCA, BMP #### [facility] ([id number]) [address] [place] [address] #### HA1C #### [facility] ([id number]) [address], [address] [place] [address] ALP [Catalytic activity/Vol] 88 U/L Normal 39-130 [facility] Comment on above: Performed By: #### C BCA, BMP #### [facility] ([id number]) [address] [place] [address] #### HA1C #### [facility] ([id number]) [address], [address] [place] [address] ALT [Catalytic activity/Vol] 19 U/L Normal 0-31 [facility] Comment on above: Performed By: #### C BCA, BMP #### [facility] ([id number]) [address] [place] [address] #### HA1C #### [facility] ([id number]) [address], [address] [place] [address] Anion gap [Moles/Vol] 11 mmol/L Normal 5-15 [facility] Comment on above: Performed By: #### C BCA, BMP #### [facility] ([id number]) [address] [place] [address] #### HA1C #### [facility] ([id number]) [address], [address] [place] [address] AST [Catalytic activity/Vol] 20 U/L Normal 0-41 [facility] Comment on above: Performed By: #### C BCA, BMP #### [facility] ([id number]) [address] [place] [address] #### HA1C #### [facility] ([id number]) [address], [address] [place] [address] Bilirubin [Mass/Vol] 0.6 mg/dL Normal 0.3-1.2 [facility] Comment on above: Performed By: #### C BCA, BMP #### [facility] ([id number]) [address] [place] [address] #### HA1C #### [facility] [facility] ([id number]) [address], [address] [place] [address] Calcium [Mass/Vol] 8.8 mg/dL Normal 8.5-10.5 [facility] Comment on above: Performed By: #### C BCA, BMP #### [facility] ([id number]) [address] [place] [address] #### HA1C #### [facility] ([id number]) [address], [address] [place] [address] Chloride [Moles/Vol] 102 mmol/L Normal 98-109 [facility] Comment on above: Performed By: #### C BCA, BMP #### [facility] ([id number]) [address] [place] [address] #### HA1C #### [facility] ([id number]) [address], [address] [place] [address] CO2 [Moles/Vol] 25 mmol/L Normal 22-32 [facility] Comment on above: Performed By: #### C BCA, BMP #### [facility] ([id number]) [address] [place] [address] #### HA1C #### [facility] ([id number]) [address], [address] [place] [address] Creatinine [Mass/Vol] 1.29 mg/dL High 0.40-1.00 [facility] Comment on above: Result Comment: METH OD TRACEABLE TO IDMS STANDARD Performed By: #### C BCA, BMP #### [facility] ([id number]) [address] [place] [address] #### HA1C #### [facility] ([id number]) [address], [address] [place] [address] GFR/1.73 sq M.predicted among non-blacks MDRD (S/P/Bld) [Vol rate/Area] 42 mL/min/{1.73_m2} Low >59 [facility] Comment on above: Result Comment: Reported eGFR is based on the CKD-EPI 2020 equation that does not use a race coefficient. Performed By: #### C BCA, BMP #### [facility] ([id number]) [address] [place] [address] 99809 #### HA1C #### [facility] ([id number]) [address], [address] [place] [address] Glucose [Mass/Vol] 79 mg/dL Normal 65-99 [facility] Comment on above: Performed By: #### C BCA, BMP #### [facility] ([id number]) [address] [place] [address] 75[address] #### HA1C #### [facility] ([id number]) [address], [address] [place] [address] Potassium [Moles/Vol] 3.3 mmol/L Low 3.5-5.0 [facility] Comment on above: Performed By: #### C BCA, BMP #### [facility] ([id number]) [address] [place] [address] 20[address] #### HA1C #### [facility] ([id number]) [address], [address] [place] [address] Protein [Mass/Vol] 7.5 g/dL Normal 6.0-8.0 [facility] Comment on above: Performed By: #### C BCA, BMP #### [facility] ([id number]) [address] [place] [address] 07292 #### HA1C #### [facility] ([id number]) [address], [address] [place] [address] Sodium [Moles/Vol] 138 mmol/L Normal 134-146 [facility] Comment on above: Performed By: #### C BCA, BMP #### [facility] ([id number]) [address] [place] [address] 61821 #### HA1C #### [facility] ([id number]) [address], [address] [place] [address] Urea nitrogen [Mass/Vol] 22 mg/dL Normal 5-27 [facility] Comment on above: Performed By: #### C BCA, BMP #### [facility] ([id number]) [address] [place] [address] 33179 #### HA1C #### [facility] ([id number]) [address], [address] [place] [address] CT BRAIN WO CONTon 4 CT BRAIN WO CONT CT BRAIN WO CONT Exam: CT brain without contrast. CLINICAL HISTORY: Headache. Altered mental status. TECHNIQUE: CT brain without intravenous contrast. All CT scans at this facility use dose modulation, iterative reconstruction, and/or weight based dosing when appropriate to reduce radiation dose to as low as reasonably achievable COMPARISON: 02/28/2024 FINDINGS: No evidence of hemorrhage. No mass or mass effect. No CT evidence of acute ischemia/infarct. The midline structures are intact, no midline shift. Right frontal ventriculostomy in place. The size and appearance of the lateral ventricles is unchanged when compared to previous CT scan. The brainstem and cerebellum are unremarkable. The paranasal sinuses and mastoid air cells are well aerated. No acute osseous abnormality. IMPRESSION: 1. No acute intracranial pathology by CT. 2. Unchanged right frontal ventriculostomy. Finalized by Juan Ramon Christy MD on 08/23/2024 6:02 AM Normal [facility] ETHANOLon 08-23-2024 Ethanol [Mass/Vol] mg/dL Normal 0.00-0.08 [facility] Comment on above: Result Comment: This report is intended for use in clinical monitoring or management of patients. Performed By: #### C , [facility], 1751-7, 90328-4, 2777-1, 2731-8, 66455-3 #### [facility] ([id number]) [address] [place] [address] Glucose Glucometer (BldC) [M ass/Vol]on 08-23-2024 Glucose [Mass/Vol] 267 mg/dL High 65-99 [facility] Glucose [Mass/Vol] 279 mg/dL High 65-99 [facility] Glucose [Mass/Vol] 298 mg/dL High 65-99 [facility] Glucose [Mass/Vol] 235 mg/dL High 65-99 [facility] Glucose [Mass/Vol] 141 mg/dL High 65-99 [facility] Glucose [Mass/Vol] 101 mg/dL High 65-99 [facility] Glucose [Mass/Vol] 83 mg/dL Normal 65-99 [facility] Glucose [Mass/Vol] 93 mg/dL Normal 65-99 [facility] Glucose [Mass/Vol] 144 mg/dL High 65-99 [facility] Glucose [Mass/Vol] 61 mg/dL Low 65-99 [facility] Glucose [Mass/Vol] 82 mg/dL Normal 65-99 [facility] Glucose [Mass/Vol] 176 mg/dL High 65-99 [facility] Glucose [Mass/Vol] 85 mg/dL Normal 65-99 [facility] Glucose [Mass/Vol] 91 mg/dL Normal 65-99 [facility] Glucose [Mass/Vol] 109 mg/dL High 65-99 [facility] Glucose [Mass/Vol] 55 mg/dL Low 65-99 [facility] LIPASEon 08-23-2024 Lipase [Catalytic activity/Vol] 30 U/L Normal 17-40 [facility] Comment on above: Performed By: #### WILSON MAI, 1751-05, , 2776-11, 2731-06, 99670-3 #### [facility] ([id number]) [address], [address] [place] [address] Lactate (P obed) [Moles/Vol]o n 08-23-2024 Lactate [Moles/Vol] 2.0 mmol/L Normal 0.4-2.0 [facility] Comment on above: Performed By: #### WILSON MAI, 1751-05, , 2776-11, 8, 56323-8 #### [facility] ([id number]) [address], [address] [place] [address] LACTATE W/REFLEX 2.9 mmol/L High 0.4-2.0 [facility] Comment on above: Performed By: #### WILSON MAI, 1751-05, , 2776-11, 2730-8, 88765-0 #### [facility] ([id number]) [address], [address] [place] [address] MAGNESIUMon 08-23-2024 Magnesium [Mass/Vol] 2.7 mg/dL High 1.8-2.6 [facility] Comment on above: Performed By: #### WILSON MAI, , 27169-2, 7-1, 2731-8, 81120-8 #### [facility] ([id number]) [address], [address] [place] [address] Magnesium [Mass/Vol] 1.6 mg/dL Low 1.8-2.6 [facility] Comment on above: Performed By: #### C BCA, BMP #### [facility] ([id number]) [address] [place] [address], [place] [address] #### HA1C #### [facility] ([id number]) [address] [place] [address] Myoglobin [Mass/Vol]on 08-23 SERUM MYOGLOBIN 97.6 ng/mL High 14.3-65.8 [facility] Comment on above: Performed By: #### C BC, BMP, 1751-05, 93132-8, 2776-1, 2730-8, 01090-6 #### [facility] ([id number]) [address], [address] [place] [address] Natriuretic peptide B [Mass/ Vol]on 08-23-2024 Natriuretic peptide B (Bld) [Mass/Vol] 66 pg/mL Normal <100.0 [facility] Comment on above: Performed By: #### C BC, BMP, 1751-05, 54558-1, 2776-1, 2730-8, 67260-6 #### [facility] ([id number]) [address], [address] [place] [address] POTASSIUMon 08-23-2024 Potassium [Moles/Vol] 5.4 mmol/L High 3.5-5.0 [facility] Comment on above: Performed By: #### C BC, BMP, 1750-, 56267-4, 7-1, 2731-8, 07878-4 #### [facility] ([id number]) [address], [address] [place] [address] PROTIME AND INRon 08-23-2024 INR Coag (PPP) [Relative time] 1.0 {INR} Normal 0.8-1.1 [facility] Comment on above: Performed By: #### Renita ALLEN, BMP, 1750-7, 09680-4, 2777-1, 2731-8, 83870-4 #### [facility] ([id number]) [address], [address] [place] [address] PT Coag (PPP) [Time] 11.7 s Normal 9.8-13.2 [facility] Comment on above: Result Comment: NEW REFERENCE RANGE Performed By: #### Renita ALLEN, BMP, 1750-7, 88290-2, 2777-1, 2731-8, 87049-3 #### [facility] ([id number]) [address] [place] [address] THYROID PROFILEon 08-23-2024 Free T4 [Mass/Vol] 1.05 ng/dL Normal 0.61-1.60 [facility] Comment on above: Performed By: #### Renita ALLEN, BMP, 1750-7, 38981-7, 2777-1, 2731-8, 38963-4 #### [facility] ([id number]) [address] [place] [address] TSH 0.38 uIU/mL Low 0.49-4.67 [facility] Comment on above: Performed By: #### Renita ALLEN, BMP, 1750-7, 20396-3, 2777-1, 2731-8, 09309-7 #### [facility] ([id number]) [address] [place] [address] Troponin I.cardiac High sens itivity method [Mass/Vol]on 08-23-2024 3 HOUR TROP I, HIGH SENSITIVITY 112 ng/L High <16 [facility] Comment on above: Result Comment: Elevations of hs-Troponin may be due to causes other than myocardial ischemia. Recommend serial hs-Troponin testing be performed. For the initial evaluation and management of chest pain patients, refer to the algorithms linked below. Emergency Patient: [email or web address].[email or web address]/dl.[email or web address]&[email or web address]&uh= acaea Inpatient: [email or web address]://[email or web address].[employer]/dv/dl.aspx?[email or web address]&[email or web address]&j=44903&uh= acaea Performed By: #### C BC, BMP, 1751-7, 59206-5, 2777-1, 2731-8, 38461-9 #### [facility] ([id number]) [address] [place] [address] 1 HOUR TROP I, HIGH SENSITIVITY 72 ng/L High <16 [facility] Comment on above: Result Comment: Elevations of hs-Troponin may be due to causes other than myocardial ischemia. Recommend serial hs-Troponin testing be performed. For the initial evaluation and management of chest pain patients, refer to the algorithms linked below. Emergency Patient: [email or web address]://www.[employer]/dv/dl.aspx?[email or web address]&p=43143&uh= acaea Inpatient: [email or web address]://www.[employer]/dv/dl.aspx?[email or web address]&[email or web address]&d=72550&uh= acaea Performed By: #### C BC, BMP, 1751-7, 31403-8, 2777-1, 2731-8, 46571-6 #### [facility] ([id number]) [address] [place] [address] TROPONIN I, HIGH SENSITIVITY 45 ng/L High <16 [facility] Comment on above: Result Comment: Elevations of hs-Troponin may be due to causes other than myocardial ischemia. Recommend serial hs-Troponin testing be performed. For the initial evaluation and management of chest pain patients, refer to the algorithms linked below. Emergency Patient: [email or web address]/dl.aspx?[email or web address]&[email or web address]&uh= acaea Inpatient: [email or web address]/[email or web address]&[email or web address]&uh= acaea Performed By: #### C BC, BMP, 1751-7, 25137-5, 2777-1, 2731-8, 08036-0 #### [facility] ([id number]) [address], [address] [place] [address] URINE CULTUREon 08-23-2024 Bacteria identified Cx Nom (U) CULTURE RESULTS NO GROWTH AT <1000 CFU/mL Normal [facility] Comment on above: Performed By: #### C BC, BMP, 175-7, 84800-1, 2777-1, 2731-8, 32615-1 #### [facility] ([id number]) [address], [address] [place] [address] URN MACROSCOPIC NURon 2023 BILIRUBIN MARYJO Negative Normal NEG [facility] Comment on above: Performed By: #### C BC, BMP, 175-7, 96325-0, 2777-1, 2731-8, 74957-7 #### [facility] ([id number]) [address], [address] [place] [address] BLOOD/HGB MARYJO Negative Normal NEG [facility] Comment on above: Performed By: #### C BC, BMP, 1751-7, 43465-5, 2777-1, 2731-8, 42865-4 #### [facility] ([id number]) [address], [address] [place] [address] GLUCOSE MARYJO 100 mg/dL Abnormal NEG [facility] Comment on above: Performed By: #### C BC, BMP, 1751-7, 82344-7, 2777-1, 2731-8, 70108-3 #### [facility] ([id number]) [address], [address] [place] [address] KETONES MARY[facility] Negative Normal NEG [facility] Comment on above: Performed By: #### C BC, BMP, 1751-7, 37889-9, 2777-1, 2731-8, 01191-2 #### [facility] ([id number]) [address] [place] [address] LEUKOCYTE ESTERASE MARYJO Negative Normal NEG [facility] Comment on above: Performed By: #### C BC, BMP, 1751-7, 58123-7, 2777-1, 2731-8, 28708-0 #### [facility] ([id number]) [address], [address] [place] [address] NITRITE MARYJO Negative Normal NEG [facility] Comment on above: Performed By: #### Renita BC, BMP, 175-7, 19435-5, 2777-1, 2731-8, 78262-2 #### [facility] ([id number]) [address], [address] [place] [address] PH MARYJO 6.5 Normal 5.0-8.5 [facility] Comment on above: Performed By: #### C BC, BMP, 175-7, 95006-9, 2777-1, 2731-8, 93336-9 #### [facility] ([id number]) [address] [place] [address] PROTEIN MARYJO Negative Normal NEG [facility] Comment on above: Performed By: #### Renita BC, BMP, 1751-7, 74564-5, 2777-1, 2731-8, 85991-6 #### [facility] ([id number]) [address], [address] [place] [address] SPECIFIC GRAVITY MARYJO 1.015 Normal 1.003-1.035 [facility] Comment on above: Performed By: #### C BC, BMP, 1751-7, 81364-9, 7-1, 2731-8, 59051-5 #### [facility] ([id number]) [address] [place] [address] UROBILINOGEN MARYJO 0.2 eu/dL Normal <1.1 [facility] Comment on above: Performed By: #### C BC, BMP, 7, 14189-1, 2776-1, 2730-8, 58186-6 #### [facility] ([id number]) [address] [place] [address] XR CHEST 1 VWon 08-23-2024 XR CHEST 1 VW XR CHEST 1 VW Single view chest History: cough, sepsis. Chest pain. Comparison: 08/12/2024 Findings: Single portable view of the chest. The peak shunt tubing courses over the right chest. Cardiac silhouette is mildly enlarged. Aortic valve replacement. Trachea midline. No focal pulmonary consolidation. No pleural effusion. No pneumothorax. Mild interstitial prominence. Impression: 1. Mild interstitial edema, otherwise no acute findings. Finalized by Juan Ramon Christy MD on 08/23/2024 6:05 AM Normal [facility] aPTT Coag (PPP) [Time]on aPTT Coag (Bld) [Time] 24 s Low 26-37 [facility] Comment on above: Result Comment: NEW REFERENCE RANGE Performed By: #### C BC, BMP, 7, 13449-4, 2776-1, 273-8, 31567-5 #### [facility] ([id number]) [address] [place] [address] CBC AND AUTO DIFFon 08-14-20 24 ABSOLUTE BASOPHIL 0.0 X10E9/L Normal 0.0-0.2 [facility] Comment on above: Performed By: #### C BCA, CMP, LIVR, ####[facility] ([id number])[address] [place] [address] ABSOLUTE NEUTROPHIL 3.4 X10E9/L Normal 1.5-6.6 [facility] Comment on above: Performed By: #### C BCA, CMP, LIVR, ####[facility] ([id number])[address] [place] [address] Basophils/100 WBC (Bld) 0.2 % Normal [facility] Comment on above: Performed By: #### C BCA, CMP, LIVR, ####[facility] ([id number])[address] [place] [address] Eosinophils (Bld) [#/Vol] 0.0 10*3/uL Normal 0.0-0.4 [facility] Comment on above: Performed By: #### C BCA, CMP, LIVR, ####[facility] ([id number])[address] [place] [address] Eosinophils/100 WBC (Bld) 0.0 % Normal [facility] Comment on above: Performed By: #### C BCA, CMP, LIVR, ####[facility] ([id number])[address] [place] [address] Erythrocyte distribution width (RBC) [Ratio] 15.6 % High 11.5-15.0 [facility] Comment on above: Performed By: #### C BCA, CMP, LIVR, ####[facility] ([id number])[address] [place] [address] Hematocrit (Bld) [Volume fraction] 30.5 % Low 35-47 [facility] Comment on above: Performed By: #### C BCA, CMP, LIVR, ####[facility] ([id number])[address] [place] [address] 57600 Hemoglobin (Bld) [Mass/Vol] 9.9 g/dL Low 11.7-15.5 [facility] Comment on above: Performed By: #### C BCA, CMP, LIVR, ####[facility] ([id number])[address] [place] [address] 56875 Lymphocytes (Bld) [#/Vol] 1.9 10*3/uL Normal 1.0-3.5 [facility] Comment on above: Performed By: #### C BCA, CMP, LIVR, ####[facility] ([id number])[address] [place] [address] Lymphocytes/100 WBC (Bld) 29.8 % Normal [facility] Comment on above: Performed By: #### C BCA, CMP, LIVR, ####[facility] ([id number])[address] [place] [address] 60816 MCH (RBC) [Entitic mass] 27.6 pg Normal 27-34 [facility] Comment on above: Performed By: #### C BCA, CMP, LIVR, 17698-0 ####[facility] ([id number])[address] [place] [address] 68782 MCHC (RBC) [Mass/Vol] 32.5 g/dL Normal 32-36 [facility] Comment on above: Performed By: #### C BCA, CMP, LIVR, ####[facility] ([id number])[address] [place] [address] 73480 MCV (RBC) [Entitic vol] 85 fL Normal 80-100 [facility] Comment on above: Performed By: #### C BCA, CMP, LIVR, ####[facility] ([id number])[address] [place] [address] Monocytes (Bld) [#/Vol] 1.0 10*3/uL High 0-0.9 [facility] Comment on above: Performed By: #### C BCA, CMP, LIVR, 50516-5 ####[facility] ([id number])[address] [place] [address] Monocytes/100 WBC (Bld) 15.5 % Normal [facility] Comment on above: Performed By: #### C BCA, CMP, LIVR, 75221-7 ####[facility] ([id number])[address] [place] [address] 46558 Neutrophils/100 WBC (Bld) 54.5 % Normal [facility] Comment on above: Performed By: #### C BCA, CMP, LIVR, 76516-3 ####[facility] ([id number])[address] [place] [address] 68315 Platelet mean volume (Bld) [Entitic vol] 8.3 fL Normal 7-12 [facility] Comment on above: Performed By: #### C BCA, CMP, LIVR, 50942-1 ####[facility] ([id number])[address] [place] [address] 18161 Platelets (Bld) [#/Vol] 228 10*3/uL Normal 150-450 [facility] Comment on above: Performed By: #### C BCA, CMP, LIVR, 87263-4 ####[facility] ([id number])[address] [place] [address] [place] [address] RBC COUNT 3.60 X10E12/L Low 3.80-5.20 [facility] Comment on above: Performed By: #### C BCA, CMP, LIVR, ####[facility] ([id number])[address] [place] [address] WBC (Bld) [#/Vol] 6.3 10*3/uL Normal 4.0-11.0 [facility] Comment on above: Performed By: #### C BCA, CMP, LIVR, 30515-7 ####[facility] ([id number])[address] [place] [address] [place] [address] COMPREHENSIVE METABOLIC PANE Dickson 08-14-2024 Albumin [Mass/Vol] 3.4 g/dL Normal 3.2-5.3 [facility] Comment on above: Performed By: #### C BCA, CMP, LIVR, 73170-9 ####[facility] ([id number])[address] [place] [address] ALP [Catalytic activity/Vol] 70 U/L Normal 39-130 [facility] Comment on above: Performed By: #### C BCA, CMP, LIVR, ####[facility] ([id number])[address] [place] [address]90[address] ALT [Catalytic activity/Vol] 14 U/L Normal 0-31 [facility] Comment on above: Performed By: #### C BCA, CMP, LIVR, 15338-2 ####[facility] ([id number])[address] [place] [address] [place] [address] Anion gap [Moles/Vol] 10 mmol/L Normal 5-15 [facility] Comment on above: Performed By: #### C BCA, CMP, LIVR, 54956-9 ####[facility] ([id number])[address] [place] [address] [place] [address] AST [Catalytic activity/Vol] 19 U/L Normal 0-41 [facility] Comment on above: Performed By: #### C BCA, CMP, LIVR, 45440-0 ####[facility] ([id number])[address] [place] [address] Bilirubin [Mass/Vol] 0.4 mg/dL Normal 0.3-1.2 [facility] Comment on above: Performed By: #### C BCA, CMP, LIVR, 94647-2 ####[facility] ([id number])[address] [place] [address] Calcium [Mass/Vol] 9.0 mg/dL Normal 8.5-10.5 [facility] Comment on above: Performed By: #### C BCA, CMP, LIVR, 46697-8 ####[facility] ([id number])[address] [place] [address] Chloride [Moles/Vol] 103 mmol/L Normal 98-109 [facility] Comment on above: Performed By: #### C BCA, CMP, LIVR, 91361-7 ####[facility] ([id number])[address] [place] [address] 53892 CO2 [Moles/Vol] 22 mmol/L Normal 22-32 [facility] Comment on above: Performed By: #### C BCA, CMP, LIVR, 67694-7 ####[facility] ([id number])[address] [place] [address] 52843 Creatinine [Mass/Vol] 1.39 mg/dL High 0.40-1.00 [facility] Comment on above: Result Comment: METH OD TRACEABLE TO IDMS STANDARD Performed By: #### C BCA, CMP, LIVR, 18437-2 ####[facility] ([id number])[address] [place] [address] 52202 GFR/1.73 sq M.predicted among non-blacks MDRD (S/P/Bld) [Vol rate/Area] 39 mL/min/{1.73_m2} Low >59 [facility] Comment on above: Result Comment: Reported eGFR is based on the CKD-EPI 1 equation that does not use a race coefficient. Performed By: #### C BCA, CMP, LIVR, 51020-7 ####[facility] ([id number])[address] [place] [address] [place] [address] Glucose [Mass/Vol] 102 mg/dL High 65-99 [facility] Comment on above: Performed By: #### C BCA, CMP, LIVR, 47047-2 ####[facility] ([id number])[address] [place] [address] 55299 Potassium [Moles/Vol] 4.3 mmol/L Normal 3.5-5.0 [facility] Comment on above: Performed By: #### C BCA, CMP, LIVR, 12980-5 ####[facility] ([id number])[address] [place] [address] Protein [Mass/Vol] 7.0 g/dL Normal 6.0-8.0 [facility] Comment on above: Performed By: #### C BCA, CMP, LIVR, 73483-6 ####[facility] ([id number])[address] [place] [address] Sodium [Moles/Vol] 135 mmol/L Normal 134-146 [facility] Comment on above: Performed By: #### C BCA, CMP, LIVR, 12354-6 ####[facility] ([id number])[address] [place] [address] Urea nitrogen [Mass/Vol] 40 mg/dL High 5-27 [facility] Comment on above: Performed By: #### C BCA, CMP, LIVR, 59223-4 ####[facility] ([id number])[address] [place] [address] Glucose Glucometer (BldC) [M ass/Vol]on 08-14-2024 Glucose [Mass/Vol] 372 mg/dL High 65-99 [facility] Glucose [Mass/Vol] 204 mg/dL High 65-99 [facility] LIVER PANELon 08-14-2024 Bilirubin.indirect [Mass/Vol] mg/dL Normal 0.0-0.4 [facility] Comment on above: Performed By: #### C BCA, CMP, LIVR, ####[facility] ([id number])[address] [place] [address]67 MAGNESIUMon 08-14-2024 Magnesium [Mass/Vol] 1.8 mg/dL Normal 1.8-2.6 [facility] Comment on above: Performed By: #### C BCA, BMP #### [facility] ([id number]) [address] [place] [address] #### HA1C #### [facility] ([id number]) [address] [place] [address] CBC AND AUTO DIFFon 08-13-20 24 ABSOLUTE BASOPHIL 0.0 X10E9/L Normal 0.0-0.2 [facility] Comment on above: Performed By: #### C BC, BMP, 1751-05, , 2776-1, 2731-8, 37706-5 #### [facility] ([id number]) [address], [address] [place] [address] ABSOLUTE NEUTROPHIL 4.4 X10E9/L Normal 1.5-6.6 [facility] Comment on above: Performed By: #### Renita BC, BMP, 1751-05, , 2776-1, 273-8, 76435-5 #### [facility] ([id number]) [address], [address] [place] [address] Basophils/100 WBC (Bld) 0.2 % Normal [facility] Comment on above: Performed By: #### C BC, BMP, 1751-05, , 2776-1, 2731-8, 64382-8 #### [facility] ([id number]) [address], [address] [place] [address] Eosinophils (Bld) [#/Vol] 0.0 10*3/uL Normal 0.0-0.4 [facility] Comment on above: Performed By: #### C BC, BMP, 1750-, 14538-5, 2777-1, 2731-8, 97696-3 #### [facility] ([id number]) [address], [address] [place] [address] Eosinophils/100 WBC (Bld) 0.2 % Normal [facility] Comment on above: Performed By: #### C BC, BMP, 1750-, 24464-7, 7-1, 273-8, 25994-1 #### [facility] ([id number]) [address], [facility] [address] [place] [address] Erythrocyte distribution width (RBC) [Ratio] 16.1 % High 11.5-15.0 [facility] Comment on above: Performed By: #### C BC, BMP, 1751-05, 56483-3, 7-1, 273-8, 24546-1 #### [facility] ([id number]) [address] [address] [place] [address] Hematocrit (Bld) [Volume fraction] 28.2 % Low 35-47 [facility] Comment on above: Performed By: #### C BC, BMP, 1751-05, 42313-8, 2776-1, 273-8, 05266-3 #### [facility] ([id number]) [address], [address] [place] [address] Hemoglobin (Bld) [Mass/Vol] 9.1 g/dL Low 11.7-15.5 [facility] Comment on above: Performed By: #### C BC, BMP, 1750-, 86182-7, 7-1, 2731-8, 39753-6 #### [facility] ([id number]) [address], [address] [place] [address] Lymphocytes (Bld) [#/Vol] 1.1 10*3/uL Normal 1.0-3.5 [facility] Comment on above: Performed By: #### C BC, BMP, 1750-, 61209-7, 2777-1, 2731-8, 49766-5 #### [facility] ([id number]) [address], [facility] [place] [address] Lymphocytes/100 WBC (Bld) 17.4 % Normal [facility] Comment on above: Performed By: #### Renita ALLEN, BMP, 1751-05, 23407-1, 2776-, 273-8, 04263-0 #### [facility] ([id number]) [address], [facility] [place] [address] MCH (RBC) [Entitic mass] 27.5 pg Normal 27-34 [facility] Comment on above: Performed By: #### Renita BC, BMP, 1751-05, , 2776-1, 273-8, 00183-0 #### [facility] ([id number]) [address], [facility] [address] [place] [address] MCHC (RBC) [Mass/Vol] 32.2 g/dL Normal 32-36 [facility] Comment on above: Performed By: #### Renita BC, BMP, 1751-05, 66702-4, 2776-, 273-8, 66197-3 #### [facility] ([id number]) [address], [facility] [place] [address] MCV (RBC) [Entitic vol] 85 fL Normal 80-100 [facility] Comment on above: Performed By: #### Renita BC, BMP, 1750-, 92435-6, 7-1, 2731-8, 17766-8 #### [facility] ([id number]) [address], [facility] [address] [place] [address] Monocytes (Bld) [#/Vol] 0.9 10*3/uL Normal 0-0.9 [facility] Comment on above: Performed By: #### Renita BC, BMP, 1750-, 08453-4, 2777-1, 2731-8, 04144-5 #### [facility] ([id number]) [address], [address] [place] [address] Monocytes/100 WBC (Bld) 13.8 % Normal [facility] Comment on above: Performed By: #### Renita ALLEN, BMP, 1750-, 72986-6, 7-1, 2731-8, 11331-7 #### [facility] ([id number]) [address], [address] [place] [address] Neutrophils/100 WBC (Bld) 68.4 % Normal [facility] Comment on above: Performed By: #### Renita ALLEN, BMP, 1751-05, 62266-8, 2776-1, 2731-8, 66977-0 #### [facility] ([id number]) [address], [address] [place] [address] Platelet mean volume (Bld) [Entitic vol] 8.6 fL Normal 7-12 [facility] Comment on above: Performed By: #### Renita ALLEN, BMP, 1751-05, 57633-9, 2776-1, 273-8, 75780-0 #### [facility] ([id number]) [address], [address] [place] [address] Platelets (Bld) [#/Vol] 207 10*3/uL Normal 150-450 [facility] Comment on above: Performed By: #### Renita BC, BMP, 1750-, 70740-4, 2777-1, 2731-8, 65340-3 #### [facility] ([id number]) [address], [address] [place] [address] RBC COUNT 3.30 X10E12/L Low 3.80-5.20 [facility] Comment on above: Performed By: #### C BC, BMP, 175-7, 31195-2, 2777-1, 2731-8, 82709-5 #### [facility] ([id number]) [address], [address] [place] [address] WBC (Bld) [#/Vol] 6.5 10*3/uL Normal 4.0-11.0 [facility] Comment on above: Performed By: #### C BC, BMP, 1750-7, 49062-0, 2777-1, 2731-8, 89718-8 #### [facility] ([id number]) [address], [address] [place] [address] COMPREHENSIVE METABOLIC PANE Dickson 08-13-2024 Albumin [Mass/Vol] 3.4 g/dL Normal 3.2-5.3 [facility] Comment on above: Performed By: #### C BC, BMP, 1750-7, 17855-8, 2777-1, 2731-8, 96721-9 #### [facility] ([id number]) [address], [address] [place] [address] Performed By: #### C BCA, CMP, LIVR, 77664-0 ####[facility] ([id number])[address] [place] [address] ALP [Catalytic activity/Vol] 74 U/L Normal 39-130 [facility] Comment on above: Performed By: #### C BC, BMP, 175-7, 88078-3, 2777-1, 2731-8, 45966-9 #### [facility] ([id number]) [address], [address] [place] [address] Performed By: #### C BCA, CMP, LIVR, 99911-2 ####[facility] ([id number])[address] [place] [address] ALT [Catalytic activity/Vol] 13 U/L Normal 0-31 [facility] Comment on above: Performed By: #### C BC, BMP, 175-7, 09375-8, 2777-1, 2731-8, 44077-4 #### [facility] ([id number]) [address] [facility] [place] [address] Performed By: #### C BCA, CMP, LIVR, 67450-4 ####[facility] ([id number])[address] [place] [address] Anion gap [Moles/Vol] 8 mmol/L Normal 5-15 [facility] Comment on above: Performed By: #### C BC, BMP, 1750-7, 47904-0, 2777-1, 2731-8, 87949-0 #### [facility] ([id number]) [address] [facility] [facility] [place] [address] AST [Catalytic activity/Vol] 17 U/L Normal 0-41 [facility] Comment on above: Performed By: #### C BC, BMP, 1750-7, 72283-9, 2777-1, 2731-8, 77930-9 #### [facility] ([id number]) [address] [facility] [place] [address] Performed By: #### C BCA, CMP, LIVR, 66923-2 ####[facility] ([id number])[address] [place] [address] Bilirubin [Mass/Vol] 0.3 mg/dL Normal 0.3-1.2 [facility] Comment on above: Performed By: #### C BC, BMP, 175-7, 58518-5, 2777-1, 2731-8, 58212-7 #### [facility] ([id number]) [address] [facility] [place] [address] Performed By: #### C BCA, CMP, LIVR, 12518-9 ####[facility] ([id number])[address] [place] [address] Calcium [Mass/Vol] 8.9 mg/dL Normal 8.5-10.5 [facility] Comment on above: Performed By: #### C BC, BMP, 1751-05, , 2776-1, 273-8, 40999-8 #### [facility] ([id number]) [address], [address] [place] [address] Chloride [Moles/Vol] 101 mmol/L Normal 98-109 [facility] Comment on above: Performed By: #### C BC, BMP, 1751-05, , 2776-1, 273-8, 16523-4 #### [facility] ([id number]) [address], [address] [place] [address] CO2 [Moles/Vol] 27 mmol/L Normal 22-32 [facility] Comment on above: Performed By: #### C BC, BMP, 1751-05, , 2776-1, 2731-8, 97159-6 #### [facility] ([id number]) [address], [address] [place] [address] Creatinine [Mass/Vol] 1.43 mg/dL High 0.40-1.00 [facility] Comment on above: Result Comment: METH OD TRACEABLE TO IDMS STANDARD Performed By: #### C BC, BMP, 1751-05, , 2776-1, 2731-8, 50801-8 #### [facility] ([id number]) [address], [address] [place] [address] GFR/1.73 sq M.predicted among non-blacks MDRD (S/P/Bld) [Vol rate/Area] 38 mL/min/{1.73_m2} Low >59 [facility] Comment on above: Result Comment: Reported eGFR is based on the CKD-EPI 2020 equation that does not use a race coefficient. Performed By: #### C BC, BMP, 1751-05, , 2776-1, 2731-8, 74012-5 #### [facility] ([id number]) [address], [address] [place] [address] Glucose [Mass/Vol] 189 mg/dL High 65-99 [facility] Comment on above: Performed By: #### C BC, BMP, 1751-05, , 2776-1, 273-8, 57780-6 #### [facility] ([id number]) [address], [address] [place] [address] Potassium [Moles/Vol] 4.8 mmol/L Normal 3.5-5.0 [facility] Comment on above: Performed By: #### C BC, BMP, 1751-05, , 2776-1, 273-8, 10676-9 #### [facility] ([id number]) [address], [address] [place] [address] Protein [Mass/Vol] 6.9 g/dL Normal 6.0-8.0 [facility] Comment on above: Performed By: #### C BC, BMP, 1751-05, , 2776-, 273-8, 20810-2 #### [facility] ([id number]) [address], [address] [place] [address] Performed By: #### C BCA, CMP, LIVR, ####[facility] ([id number])[address] [place] [address] Sodium [Moles/Vol] 136 mmol/L Normal 134-146 [facility] Comment on above: Performed By: #### C BC, BMP, 1751-05, 09853-7, 7-1, 2731-8, 64832-6 #### [facility] ([id number]) [address], [address] [place] [address] Urea nitrogen [Mass/Vol] 33 mg/dL High 5-27 [facility] Comment on above: Performed By: #### C BC, BMP, 1751-05, , 7-1, 2731-8, 80150-2 #### [facility] ([id number]) [address], [address] [place] [address] Glucose Glucometer (BldC) [M ass/Vol]on 08-13-2024 Glucose [Mass/Vol] 233 mg/dL High 65-99 [facility] Glucose [Mass/Vol] 261 mg/dL High 65-99 [facility] Glucose [Mass/Vol] 235 mg/dL High 65-99 [facility] Glucose [Mass/Vol] 136 mg/dL High 65-99 [facility] LIVER PANELon 08-13-2024 Bilirubin.direct [Mass/Vol] 0.1 mg/dL Normal 0.0-0.4 [facility] Comment on above: Performed By: #### C BCA, CMP, LIVR, 14082-6 ####[facility] ([id number])[address] [place] [address] MAGNESIUMon 08-13-2024 Magnesium [Mass/Vol] 1.9 mg/dL Normal 1.8-2.6 [facility] Comment on above: Performed By: #### C BCA, CMP, LIVR, 02145-0 ####[facility] ([id number])[address] [place] [address] BLOOD CULTUREon 08-12-2024 Bacteria identified Aer cx Nom (Bld) SPECIMEN NOTES l hand CULTURE RESULTS NO GROWTH 5 DAYS Normal [facility] Comment on above: Performed By: #### C BC, BMP, 1751-05, 83956-3, 2776-, 2730-8, 15245-5 #### [facility] ([id number]) [address], [address] [place] [address] Bacteria identified Aer cx Nom (Bld) SPECIMEN NOTES r hand CULTURE RESULTS NO GROWTH 5 DAYS Normal [facility] Comment on above: Performed By: #### C BC, BMP, 1751-05, 80166-9, 2776-, 2730-8, 68672-2 #### [facility] ([id number]) [address], [address] [place] [address] CBC AND AUTO DIFFon 08-12-20 24 ABSOLUTE BASOPHIL 0.0 X10E9/L Normal 0.0-0.2 [facility] Comment on above: Performed By: #### C TIFFANY, BMP, 1751-05, 33174-9, 2776-, 2730-8, 99514-1 #### [facility] ([id number]) [address], [address] [place] [address] ABSOLUTE NEUTROPHIL 5.8 X10E9/L Normal 1.5-6.6 [facility] Comment on above: Performed By: #### C TIFFANY, BMP, 1751-05, 37071-3, 2776-, 2730-8, 94481-3 #### [facility] ([id number]) [address], [address] [place] [address] Basophils/100 WBC (Bld) 0.5 % Normal [facility] Comment on above: Performed By: #### C BC, BMP, 1751-05, 72178-4, 2776-, 2730-8, 26322-6 #### [facility] ([id number]) [address], [address] [place] [address] Eosinophils (Bld) [#/Vol] 0.1 10*3/uL Normal 0.0-0.4 [facility] Comment on above: Performed By: #### C BC, BMP, 1750-7, 70243-9, 2777-1, 2731-8, 87225-4 #### [facility] ([id number]) [address], [address] [place] [address] Eosinophils/100 WBC (Bld) 1.5 % Normal [facility] Comment on above: Performed By: #### C BC, BMP, 1750-, 73361-4, 7-1, 2731-8, 18352-0 #### [facility] ([id number]) [address], [address] [place] [address] Erythrocyte distribution width (RBC) [Ratio] 16.1 % High 11.5-15.0 [facility] Comment on above: Performed By: #### C BC, BMP, 1750-, 47996-7, 7-1, 273-8, 70685-3 #### [facility] ([id number]) [address], [address] [place] [address] Hematocrit (Bld) [Volume fraction] 30.8 % Low 35-47 [facility] Comment on above: Performed By: #### C BC, BMP, 1750-, 10468-8, 7-1, 273-8, 82709-4 #### [facility] ([id number]) [address], [address] [place] [address] Hemoglobin (Bld) [Mass/Vol] 10.1 g/dL Low 11.7-15.5 [facility] Comment on above: Performed By: #### C BC, BMP, 1750-, 63836-5, 7-1, 2731-8, 64319-5 #### [facility] ([id number]) [address] [place] [address] Lymphocytes (Bld) [#/Vol] 0.5 10*3/uL Low 1.0-3.5 [facility] Comment on above: Performed By: #### C BC, BMP, 1750-, 21578-8, 2776-1, 273-8, 14304-1 #### [facility] ([id number]) [address], [address] [place] [address] Lymphocytes/100 WBC (Bld) 7.4 % Normal [facility] Comment on above: Performed By: #### C BC, BMP, 1751-05, 91547-1, 2776-, 273-8, 19677-2 #### [facility] ([id number]) [address] [place] [address] MCH (RBC) [Entitic mass] 27.8 pg Normal 27-34 [facility] Comment on above: Performed By: #### C BC, BMP, 1751-05, 49928-0, 2776-, 2730-8, 88157-8 #### [facility] ([id number]) [address] [place] [address] MCHC (RBC) [Mass/Vol] 32.7 g/dL Normal 32-36 [facility] Comment on above: Performed By: #### C BC, BMP, 1751-05, 80452-8, 2776-, 2730-8, 56410-1 #### [facility] ([id number]) [address] [place] [address] MCV (RBC) [Entitic vol] 85 fL Normal 80-100 [facility] Comment on above: Performed By: #### Renita BC, BMP, 1750-, 27584-7, 2776-, 273-8, 95281-1 #### [facility] ([id number]) [address] [place] [address] Monocytes (Bld) [#/Vol] 0.8 10*3/uL Normal 0-0.9 [facility] Comment on above: Performed By: #### C BC, BMP, 1750-7, 54561-9, 2777-1, 2731-8, 74431-8 #### [facility] ([id number]) [address], [address] [place] [address] Monocytes/100 WBC (Bld) 11.4 % Normal [facility] Comment on above: Performed By: #### Renita BC, BMP, 1750-7, 44296-3, 2777-1, 2731-8, 29593-2 #### [facility] ([id number]) [address] [place] [address] Neutrophils/100 WBC (Bld) 79.2 % Normal [facility] Comment on above: Performed By: #### Renita BC, BMP, 1750-7, 44948-3, 2777-1, 2731-8, 35116-1 #### [facility] ([id number]) [address] [place] [address] Platelet mean volume (Bld) [Entitic vol] 8.2 fL Normal 7-12 [facility] Comment on above: Performed By: #### Renita BC, BMP, 1750-7, 17526-8, 2777-1, 2731-8, 21366-0 #### [facility] ([id number]) [address] [place] [address] Platelets (Bld) [#/Vol] 260 10*3/uL Normal 150-450 [facility] Comment on above: Performed By: #### Renita BC, BMP, 1750-7, 67432-1, 2777-1, 2731-8, 38578-8 #### [facility] ([id number]) [address], [address] [place] [address] RBC COUNT 3.62 X10E12/L Low 3.80-5.20 [facility] Comment on above: Performed By: #### C BC, BMP, 175-7, 03548-5, 2777-1, 2731-8, 14149-7 #### [facility] ([id number]) [address] [place] [address] WBC (Bld) [#/Vol] 7.3 10*3/uL Normal 4.0-11.0 [facility] Comment on above: Performed By: #### C BC, BMP, 1750-7, 18599-5, 2777-1, 2731-8, 46768-4 #### [facility] ([id number]) [address] [place] [address] COMPREHENSIVE METABOLIC PANE Dickson 08-12-2024 Albumin [Mass/Vol] 4.1 g/dL Normal 3.2-5.3 [facility] Comment on above: Performed By: #### C BC, BMP, 1750-7, 87483-2, 2777-1, 2731-8, 76251-3 #### [facility] ([id number]) [address] [place] [address] ALP [Catalytic activity/Vol] 87 U/L Normal 39-130 [facility] Comment on above: Performed By: #### C BC, BMP, 1750-7, 25724-7, 2777-1, 2731-8, 89300-0 #### [facility] ([id number]) [address] [place] [address] ALT [Catalytic activity/Vol] 13 U/L Normal 0-31 [facility] Comment on above: Performed By: #### C BC, BMP, 1750-7, 13324-1, 2777-1, 2731-8, 67594-4 #### [facility] ([id number]) [address] [place] [address] Anion gap [Moles/Vol] 8 mmol/L Normal 5-15 [facility] Comment on above: Performed By: #### C BC, BMP, 1750-7, 12870-0, 2777-1, 2731-8, 37362-8 #### [facility] ([id number]) [address] [place] [address] AST [Catalytic activity/Vol] 17 U/L Normal 0-41 [facility] Comment on above: Performed By: #### C BC, BMP, 1750-7, 02247-2, 2777-1, 2731-8, 97539-7 #### [facility] ([id number]) [address], [address] [place] [address] Bilirubin [Mass/Vol] 0.4 mg/dL Normal 0.3-1.2 [facility] Comment on above: Performed By: #### C BC, BMP, 1750-7, 75435-7, 7-1, 2731-8, 71608-5 #### [facility] ([id number]) [address], [address] [place] [address] Calcium [Mass/Vol] 9.0 mg/dL Normal 8.5-10.5 [facility] Comment on above: Performed By: #### C BC, BMP, 1750-7, 81797-6, 7-1, 2731-8, 82740-5 #### [facility] ([id number]) [address], [address] [place] [address] Chloride [Moles/Vol] 101 mmol/L Normal 98-109 [facility] Comment on above: Performed By: #### C BC, BMP, 1750-7, 21391-1, 2777-1, 2731-8, 05247-8 #### [facility] ([id number]) [address], [address] [place] [address] CO2 [Moles/Vol] 27 mmol/L Normal 22-32 [facility] Comment on above: Performed By: #### C BC, BMP, 1750-7, 96286-7, 2777-1, 2731-8, 50991-4 #### [facility] ([id number]) [address] [place] [address] Creatinine [Mass/Vol] 1.48 mg/dL High 0.40-1.00 [facility] Comment on above: Result Comment: METH OD TRACEABLE TO IDMS STANDARD Performed By: #### C BC, BMP, 175-7, 27598-9, 2777-1, 2731-8, 91473-4 #### [facility] ([id number]) [address], [facility] [place] [address] GFR/1.73 sq M.predicted among non-blacks MDRD (S/P/Bld) [Vol rate/Area] 36 mL/min/{1.73_m2} Low >59 [facility] Comment on above: Result Comment: Reported eGFR is based on the CKD-EPI 2020 equation that does not use a race coefficient. Performed By: #### C BC, BMP, 1750-7, 94289-9, 2777-1, 2731-8, 39210-1 #### [facility] ([id number]) [address] [place] [address] Glucose [Mass/Vol] 271 mg/dL High 65-99 [facility] Comment on above: Performed By: #### C BC, BMP, 1750-7, 20466-4, 2777-1, 2731-8, 48247-3 #### [facility] ([id number]) [address], [address] [place] [address] Potassium [Moles/Vol] 4.8 mmol/L Normal 3.5-5.0 [facility] Comment on above: Performed By: #### C BC, BMP, 175-7, 53240-8, 2777-1, 2731-8, 60071-5 #### [facility] ([id number]) [address] [place] [address] Protein [Mass/Vol] 7.6 g/dL Normal 6.0-8.0 [facility] Comment on above: Performed By: #### C BC, BMP, 1751-7, 18872-6, 2777-1, 2731-8, 31461-9 #### [facility] ([id number]) [address], [address] [place] [address] Sodium [Moles/Vol] 136 mmol/L Normal 134-146 [facility] Comment on above: Performed By: #### C BC, BMP, 1750-7, 67051-0, 2777-1, 2731-8, 88349-9 #### [facility] ([id number]) [address], [address] [place] [address] Urea nitrogen [Mass/Vol] 33 mg/dL High 5-27 [facility] Comment on above: Performed By: #### C BC, BMP, 1750-7, 54857-7, 2777-1, 2731-8, 62462-5 #### [facility] ([id number]) [address], [address] [place] [address] Fibrin D-dimer DDU (PPP) [Ma ss/Vol]on 08-12-2024 D DIMER 1146 ng/mL DDU High <255 [facility] Comment on above: Result Comment: Results >=255ng/mL DDU: Results may be indicative of the presence of VTE. The use of the Wells score and further diagnostic tests should be considered. Elevated D-Dimer levels can also be associated with DIC, neoplasm, , trauma and liver disease. Elevated levels of rheumatoid factor may lead to an overestimation of the D-Dimer level. Performed By: #### C BC, BMP, 175-7, 29538-0, 2777-1, 2731-8, 02818-7 #### [facility] ([id number]) [address], [address] [place] [address] Glucose Glucometer (BldC) [M ass/Vol]on 08-12-2024 Glucose [Mass/Vol] 313 mg/dL High 65-99 [facility] Glucose [Mass/Vol] 255 mg/dL High 65-99 [facility] Glucose [Mass/Vol] 113 mg/dL High 65-99 [facility] Glucose [Mass/Vol] 161 mg/dL High 65-99 [facility] LEGIONELLA URINE AGon 2023 L. pneumophila Ag IA Ql (U) LEGIONELLA URINE AG Negative (qualifier value) NEGATIVE FOR L.PNEUMOPHILA SEROGROUP 1 ANTIGEN Normal [facility] Comment on above: Performed By: #### Renita ALLEN, BMP, 1751-05, , 2776-, 273-8, 44508-8 #### [facility] ([id number]) [address], [address] [place] [address] LIVER PANELon 08-12-2024 Albumin [Mass/Vol] 3.9 g/dL Normal 3.2-5.3 [facility] Comment on above: Performed By: #### Renita ALLEN, BMP, 1751-05, , 2776-, 273-8, 83062-2 #### [facility] ([id number]) [address], [address] [place] [address] Bilirubin [Mass/Vol] 0.1 mg/dL Low 0.3-1.2 [facility] Comment on above: Performed By: #### Renita BC, BMP, 1751-05, , 2776-1, 273-8, 65049-9 #### [facility] ([id number]) [address], [address] [place] [address] Bilirubin.indirect [Mass/Vol] mg/dL Normal 0.0-0.4 [facility] Comment on above: Performed By: #### Renita BC, BMP, 1751-05, 73286-8, 2776-1, 273-8, 10977-0 #### [facility] ([id number]) [address], [address] [place] [address] Protein [Mass/Vol] 7.5 g/dL Normal 6.0-8.0 [facility] Comment on above: Performed By: #### C WILSON ALLEN, 1751-7, 67319-8, 2777-1, 2731-8, 26233-1 #### [facility] ([id number]) [address], [address] [place] [address] Lactate (P obed) [Moles/Vol]o n 08-12-2024 LACTATE W/REFLEX 0.9 mmol/L Normal 0.4-2.0 [facility] Comment on above: Result Comment: Result did not trigger repeat Lactate, re-order if needed. Performed By: #### C TIFFANY, WILSON, 1751-7, 71183-5, 2777-1, 2731-8, 06471-3 #### [facility] ([id number]) [address], [address] [place] [address] NM PULM PERFUSION SCANon NM PULM PERFUSION SCAN NM PULM PERFUSION SCAN Clinical history:Elevated d-dimer and shortness of breath Radioisotope: 5.0 millicuries technetium 99 MAA for the perfusion Findings: Comparison chest radiograph 08/04/2024 Mild patchy of distribution of isotope throughout the lungs. No definite segmental or subsegmental perfusion defect. Impression: Low probability for pulmonary embolus. Finalized by Jason Vanegas MD on 08/12/2024 2:07 PM Normal [facility] Procalcitonin IA [Mass/Vol]o n 08-12-2024 PROCALCITONIN 0.05 ng/mL High <0.05 [facility] Comment on above: Result Comment: NOTE <0.50 ng/mL - Low risk of severe sepsis and/or septic shock. <2.00 ng/mL - Recommend retesting within 6-24 hours. >2.00 ng/mL - High risk of sepsis and/or septic shock. Performed By: #### C TIFFANY BMP, 1751-7, 02313-6, 2777-1, 2731-8, 35983-7 #### [facility] ([id number]) [address] [place] [address] S PNEUMONIAE AG Uon 08-12-20 24 S. pneumoniae Ag Ql (U) Negative Normal NEG [facility] Comment on above: Performed By: #### C BC, BMP, 1751-7, 71217-5, 2777-1, 2731-8, 04971-3 #### [facility] ([id number]) [address] [place] [address] SARS/FLU A+B/RSV by NAAT/Mol ecularon 08-12-2024 SARS/FLU A+B/RSV by NAAT/Molecular FLU A PCR Negative (qualifier value) FLU B PCR Negative (qualifier value) RSV by PCR Negative (qualifier value) SARS CoV 2 Detected (qualifier value) NOTE The Xpert Xpress SARS-CoV-2/Flu/RSV Plus test is a rapid, multiplexed real-time RT-PCR test intended for the simultaneous qualitative detection and differentiation of SARS-CoV-2, influenza A, influenza B and respiratory syncytial virus (RSV) viral RNA from individuals suspected of respiratory viral infection consistent with COVID-19 by their healthcare provider. This test has not been validated in asymptomatic patients. The Xpert Xpress SARS-CoV-2 test is intended for use by qualified and trained operators who are performing tests using either [employer] or [employer] systems and is limited to laboratories that meet the CLIA requirements to perform high and moderate complexity tests. The Xpert Xpress SARS-CoV-2/Flu/RSV Plus is only for use under the Food and Drug Administration's Emergency Use Authorization. Results are for the simultaneous detection and differentiation of SARS-CoV-2, influenza A, influenza B and RSV nucleic acids in clinical specimens. SARS-CoV-2, influenza A, influenza B and RSV RNA identified by this test are generally detectable in upper respiratory samples during the acute phase of infection. Positive results are indicative of the presence of the identified virus, but do not rule out bacterial infection or co-infection with other pathogens not detected by this test. Clinical correlation with patient history and other diagnostic information is necessary to determine patient infection status. The agent detected may not be the definite cause of disease. Negative results do not preclude SARS-CoV-2, influenza A, influenza B and RSV infection and should not be used as the sole basis for treatment or other patient management decisions. Negative results must be combined with clinical observations, patient history and epidemiological information. An Invalid result may occur with specimen-associated inhibition unable to be resolved with specimen repeat. Fact Sheet for Healthcare Providers: https://www.fda.gov/med ia/219706/download Fact Sheet for Patients: https://www.fda.gov/med ia/123593/download Normal [facility] Comment on above: Performed By: #### C WILSON ALLEN, 1751-05, 17080-8, 2776-1, 2730-8, 76610-3 #### [facility] ([id number]) [address] [place] [address], [address] [place] [address] URINE CULTUREon 08-12-2024 Bacteria identified Cx Nom (U) CULTURE RESULTS >100,000 ORGANISMS/mL CITROBACTER BRAAKII [ S = SUSCEPTIBLE R = RESISTANT I = INTERMEDIATE S-DO = Susceptible-dose dependent NS = Non-suscceptible NO = No Interpretation ] Organism: CITROBACTER BRAAKII Antibiotic Interpretation CLARK Status CEFAZOLIN R >=64 F CEFTRIAXONE S 1 F CIPROFLOXACIN I 0.5 F GENTAMICIN S <=1 F LEVOFLOXACIN I 1 F NITROFURANTOIN S 32 F PIPERACIL/TAZOBACTAM S 16 F TOBRAMYCIN S <=1 F TRIMETH/SULFAMETHOXAZOL E S <=1/19 F Susceptible [facility] Comment on above: Performed By: #### 6 30-4 ####[facility] ([id number])[address] [place] [address], [address], [place] [address] URN MACROSCOPIC NURon 2023 BILIRUBIN MARYJO Negative Normal NEG [facility] Comment on above: Performed By: #### C WILSON ALLEN, 1750-7, 13155-6, 7-1, 2731-8, 80353-9 #### [facility] ([id number]) [address], [address] [place] [address] BLOOD/HGB MARYJO Negative Normal NEG [facility] Comment on above: Performed By: #### C BC, BMP, 175-7, 03502-6, 2777-1, 2731-8, 25694-7 #### [facility] ([id number]) [address], [address] [place] [address] GLUCOSE MARYJO 250 mg/dL Abnormal NEG [facility] Comment on above: Performed By: #### C BC, BMP, 1750-7, 79600-0, 2777-1, 2731-8, 89096-2 #### [facility] ([id number]) [address], [address] [place] [address] KETONES MARYJO Negative Normal NEG [facility] Comment on above: Performed By: #### Renita BC, BMP, 1750-7, 20774-1, 2777-1, 2731-8, 97035-5 #### [facility] ([id number]) [address], [address] [place] [address] LEUKOCYTE ESTERASE MARYJO Trace Abnormal NEG [facility] Comment on above: Performed By: #### C BC, BMP, 1750-7, 99226-4, 2777-1, 2731-8, 37213-7 #### [facility] ([id number]) [address], [address] [place] [address] NITRITE MARYJO Positive Abnormal NEG [facility] Comment on above: Performed By: #### C BC, BMP, 1750-7, 12474-2, 2777-1, 2731-8, 83342-0 #### [facility] ([id number]) [address], [address] [place] [address] PH MARYJO 7.0 Normal 5.0-8.5 [facility] Comment on above: Performed By: #### C BC, BMP, 1750-7, 57699-0, 2777-1, 2731-8, 51326-6 #### [facility] ([id number]) [address], [facility] [address] [place] [address] PROTEIN MARYJO 30 mg/dL Abnormal NEG [facility] Comment on above: Performed By: #### C BC, BMP, 1750-7, 35833-1, 2777-1, 2731-8, 88380-6 #### [facility] ([id number]) [address], [address] [place] [address] SPECIFIC GRAVITY MARYJO >=1.030 Normal 1.003-1.035 [facility] Comment on above: Performed By: #### C BC, BMP, 1750-7, 80791-6, 7-1, 273-8, 72047-6 #### [facility] ([id number]) [address], [facility] [place] [address] UROBILINOGEN MARYJO 0.2 eu/dL Normal <1.1 [facility] Comment on above: Performed By: #### C BC, BMP, 1750-7, 76170-6, 7-1, 273-8, 52408-2 #### [facility] ([id number]) [address], [facility] [place] [address] VENOUS BLOOD GASon 4 TATO'S TEST Normal [facility] Comment on above: Performed By: #### C BC, BMP, 1750-7, 62128-4, 2777-1, 2731-8, 66584-4 #### [facility] ([id number]) [address] [address] [place] [address] Base excess Calc (Bld) [Moles/Vol] 3.0 mmol/L High 0.0-2.0 [facility] Comment on above: Performed By: #### C BC, BMP, 1750-7, 75401-7, 2777-1, 2731-8, 22528-7 #### [facility] ([id number]) [address], [address] [place] [address] Body temperature 98.6 [degF] Normal 37.0 [facility] Comment on above: Performed By: #### C BC, BMP, 1750-7, 77063-4, 2777-1, 2731-8, 63146-5 #### [facility] ([id number]) [address], [address] [place] [address] HCO3 (Bld) [Moles/Vol] 30.2 mmol/L High 20.0-24.0 [facility] Comment on above: Performed By: #### C BC, BMP, 1750-7, 63210-5, 2777-1, 2731-8, 34331-6 #### [facility] ([id number]) [address], [address] [place] [address] Oxygen saturation in Blood 43.0 % Low >80.0 [facility] Comment on above: Performed By: #### C BC, BMP, 1750-7, 57512-7, 2777-1, 2731-8, 45348-2 #### [facility] ([id number]) [address], [address] [place] [address] OXYGEN SOURCE NC Normal [facility] Comment on above: Performed By: #### C BC, BMP, 1750-7, 41772-0, 2777-1, 2731-8, 01435-1 #### [facility] ([id number]) [address], [address] [place] [address] PCO2, VENOUS 58.4 MMHG High 35-50 [facility] Comment on above: Performed By: #### C BC, BMP, 1750-7, 92739-0, 2777-1, 2731-8, 20933-9 #### [facility] ([id number]) [address], [address] [place] [address] PH, VENOUS 7.322 Normal 7.320-7.420 [facility] Comment on above: Performed By: #### C BC, BMP, 1751-7, 84890-9, 2777-1, 2731-8, 81071-2 #### [facility] ([id number]) [address], [address] [place] [address] PO2, VENOUS 27 MMHG Low 30-50 [facility] Comment on above: Performed By: #### C BC, BMP, 1751-7, 16222-6, 2777-1, 2731-8, 46553-4 #### [facility] ([id number]) [address], [address] [place] [address] SAMPLE SITE N/A Normal [facility] Comment on above: Performed By: #### C BC, BMP, 1751-7, 08653-9, 2777-1, 2731-8, 46486-5 #### [facility] ([id number]) [address], [address] [place] [address] SAMPLE TYPE VENOUS Normal [facility] Comment on above: Performed By: #### C BC, BMP, 1751-7, 79172-3, 2777-1, 2731-8, 54178-4 #### [facility] ([id number]) [address], [address] [place] [address] XR CHEST 1 VWon 08-12-2024 XR CHEST 1 VW XR CHEST 1 VW XR CHEST 1 VW 08/12/2024 2:54 AM INDICATION: fever, cough, sob, hypoxia COMPARISON: X-ray chest 06/25/2024 TECHNIQUE: AP upright view(s) obtained. FINDINGS: Lines/Tubes/Devices: None. Respiratory: No pneumothorax, pleural effusion, or focal consolidation. Cardiomediastinum: Mildly enlarged, unchanged. Aortic valve replacement. IMPRESSION: * No acute pulmonary process. * Unchanged cardiomegaly. Approved by Resident: Freddy Archer MD on 08/12/2024 3:12 AM IEddi MD have personally reviewed the image(s) and agree with and/or edited the report Finalized by Eddi Tapia MD on 08/12/2024 3:18 AM Normal [facility] Glucose Glucometer (BldC) [M ass/Vol]on 06-26-2024 Glucose [Mass/Vol] 206 mg/dL High 65-99 [facility] URN MACROSCOPIC NURon 2023 BILIRUBIN MARYJO Negative Normal NEG [facility] Comment on above: Performed By: #### C BC, BMP, 175-7, 21141-6, 2777-1, 2731-8, 16020-5 #### [facility] ([id number]) [address], [address] [place] [address] BLOOD/HGB MARYJO Negative Normal NEG [facility] Comment on above: Performed By: #### Renita BC, BMP, 175-7, 22490-2, 2777-1, 2731-8, 30138-1 #### [facility] ([id number]) [address], [address] [place] [address] GLUCOSE MARYJO 250 mg/dL Abnormal NEG [facility] Comment on above: Performed By: #### Renita BC, BMP, 1750-7, 64142-3, 2777-1, 2731-8, 56389-7 #### [facility] ([id number]) [address], [address] [place] [address] KETONES MARYJO Negative Normal NEG [facility] Comment on above: Performed By: #### C BC, BMP, 175-7, 42922-4, 2777-1, 2731-8, 77140-7 #### [facility] ([id number]) [address], [address] [place] [address] LEUKOCYTE ESTERASE MARYJO Negative Normal NEG [facility] Comment on above: Performed By: #### C BC, BMP, 175-7, 87487-9, 2777-1, 2731-8, 68030-7 #### [facility] ([id number]) [address], [address] [place] [address] NITRITE MARYJO Negative Normal NEG [facility] Comment on above: Performed By: #### C BC, BMP, 1751-7, 44743-1, 2777-1, 2731-8, 44734-6 #### [facility] ([id number]) [address], [address] [place] [address] PH MARYJO 5.5 Normal 5.0-8.5 [facility] Comment on above: Performed By: #### C BC, BMP, 175-7, 07530-0, 2777-1, 2731-8, 22437-1 #### [facility] ([id number]) [address], [address] [place] [address] PROTEIN MARYJO 30 mg/dL Abnormal NEG [facility] Comment on above: Performed By: #### C BC, BMP, 175-7, 14650-5, 2777-1, 2731-8, 17856-6 #### [facility] ([id number]) [address], [address] [place] [address] SPECIFIC GRAVITY MARYJO >=1.030 Normal 1.003-1.035 [facility] Comment on above: Performed By: #### C BC, BMP, 175-7, 94985-8, 2777-1, 2731-8, 70329-4 #### [facility] ([id number]) [address], [address] [place] [address] UROBILINOGEN MARYJO 0.2 eu/dL Normal <1.1 [facility] Comment on above: Performed By: #### C BC, BMP, 1751-7, 70575-8, 2777-1, 2731-8, 97938-7 #### [facility] ([id number]) [address], [address] [place] [address] BASIC METABOLIC PANLon 06-25 Anion gap [Moles/Vol] 10 mmol/L Normal 5-15 [facility] Comment on above: Performed By: #### C BC, BMP, 175-7, 50311-4, 2777-1, 2731-8, 51859-0 #### [facility] ([id number]) [address], [address] [place] [address] Calcium [Mass/Vol] 8.7 mg/dL Normal 8.5-10.5 [facility] Comment on above: Performed By: #### Renita BC, BMP, 1750-7, 20545-8, 2777-1, 2731-8, 22195-5 #### [facility] ([id number]) [address], [address] [place] [address] Chloride [Moles/Vol] 97 mmol/L Low 98-109 [facility] Comment on above: Performed By: #### Renita BC, BMP, 1750-7, 68117-8, 2777-1, 2731-8, 16606-8 #### [facility] ([id number]) [address], [address] [place] [address] CO2 [Moles/Vol] 27 mmol/L Normal 22-32 [facility] Comment on above: Performed By: #### Renita BC, BMP, 1750-7, 90417-1, 2777-1, 2731-8, 70662-6 #### [facility] ([id number]) [address], [address] [place] [address] Creatinine [Mass/Vol] 1.42 mg/dL High 0.40-1.00 [facility] Comment on above: Result Comment: METH OD TRACEABLE TO IDMS STANDARD Performed By: #### Renita BC, BMP, 1750-7, 09452-4, 2777-1, 2731-8, 59903-5 #### [facility] ([id number]) [address], [address] [place] [address] GFR/1.73 sq M.predicted among non-blacks MDRD (S/P/Bld) [Vol rate/Area] 38 mL/min/{1.73_m2} Low >59 [facility] Comment on above: Result Comment: Reported eGFR is based on the CKD-EPI 2020 equation that does not use a race coefficient. Performed By: #### C BC, BMP, 1750-7, 38327-8, 7-1, 273-8, 93463-7 #### [facility] ([id number]) [address], [address] [place] [address] Glucose [Mass/Vol] 92 mg/dL Normal 65-99 [facility] Comment on above: Performed By: #### Renita BC, BMP, 1750-, 27961-4, 2776-1, 2730-8, 29690-0 #### [facility] ([id number]) [address], [address] [place] [address] Potassium [Moles/Vol] 4.6 mmol/L Normal 3.5-5.0 [facility] Comment on above: Performed By: #### Renita BC, BMP, 1750-7, 66213-8, 7-1, 273-8, 63016-3 #### [facility] ([id number]) [address], [address] [place] [address] Sodium [Moles/Vol] 134 mmol/L Normal 134-146 [facility] Comment on above: Performed By: #### Renita BC, BMP, 1750-7, 01895-4, 7-1, 273-8, 75545-5 #### [facility] ([id number]) [address], [address] [place] [address] Urea nitrogen [Mass/Vol] 24 mg/dL Normal 5-27 [facility] Comment on above: Performed By: #### C BC, BMP, 1750-7, 03991-3, 7-1, 273-8, 20721-1 #### [facility] ([id number]) [address], [address] [place] [address] CBC AND AUTO DIFFon 06-25-20 24 ABSOLUTE BASOPHIL 0.1 X10E9/L Normal 0.0-0.2 [facility] Comment on above: Performed By: #### C BC, BMP, 1750-, 30778-4, 2776-, 273-8, 63600-9 #### [facility] ([id number]) [address], [address] [place] [address] ABSOLUTE NEUTROPHIL 9.0 X10E9/L High 1.5-6.6 [facility] Comment on above: Performed By: #### C BC, BMP, 1751-05, 54019-2, 2776-, 2730-8, 90715-7 #### [facility] ([id number]) [address], [address] [place] [address] Basophils/100 WBC (Bld) 0.6 % Normal [facility] Comment on above: Performed By: #### C BC, BMP, 1750-, 28807-8, 2776-, 2730-8, 92686-6 #### [facility] ([id number]) [address], [address] [place] [address] Eosinophils (Bld) [#/Vol] 0.0 10*3/uL Normal 0.0-0.4 [facility] Comment on above: Performed By: #### C BC, BMP, 1750-, 66492-5, 2776-1, 273-8, 61881-4 #### [facility] ([id number]) [address], [address] [place] [address] Eosinophils/100 WBC (Bld) 0.2 % Normal [facility] Comment on above: Performed By: #### C BC, BMP, 1750-, 56112-0, 7-1, 2731-8, 80704-3 #### [facility] ([id number]) [address], [address] [place] [address] Erythrocyte distribution width (RBC) [Ratio] 15.7 % High 11.5-15.0 [facility] Comment on above: Performed By: #### C BC, BMP, 1751-05, 05040-7, 2776-1, 273-8, 47083-9 #### [facility] ([id number]) [address] [address] [place] [address] Hematocrit (Bld) [Volume fraction] 31.0 % Low 35-47 [facility] Comment on above: Performed By: #### C BC, BMP, 1751-05, 35228-1, 2776-, 2730-8, 25456-3 #### [facility] ([id number]) [address], [address] [place] [address] Hemoglobin (Bld) [Mass/Vol] 10.1 g/dL Low 11.7-15.5 [facility] Comment on above: Performed By: #### C BC, BMP, 1751-05, 23886-3, 2776-1, 273-8, 10872-8 #### [facility] ([id number]) [address], [address] [place] [address] Lymphocytes (Bld) [#/Vol] 1.2 10*3/uL Normal 1.0-3.5 [facility] Comment on above: Performed By: #### C BC, BMP, 1750-, 56991-6, 2776-1, 2731-8, 31572-6 #### [facility] ([id number]) [address], [address] [place] [address] Lymphocytes/100 WBC (Bld) 10.4 % Normal [facility] Comment on above: Performed By: #### C BC, BMP, 1750-, 49778-3, 2776-, 273-8, 36131-6 #### [facility] ([id number]) [address], [address] [place] [address] MCH (RBC) [Entitic mass] 28.1 pg Normal 27-34 [facility] Comment on above: Performed By: #### C BC, BMP, 1750-, 87986-3, 2776-, 2730-8, 38670-1 #### [facility] ([id number]) [address], [address] [place] [address] MCHC (RBC) [Mass/Vol] 32.6 g/dL Normal 32-36 [facility] Comment on above: Performed By: #### Renita BC, BMP, 1751-05, 25189-1, 2776-, 2730-8, 70056-7 #### [facility] ([id number]) [address], [address] [place] [address] MCV (RBC) [Entitic vol] 86 fL Normal 80-100 [facility] Comment on above: Performed By: #### Renita BC, BMP, 1750-, 94995-9, 2776-, 2730-8, 60098-4 #### [facility] ([id number]) [address], [address] [place] [address] Monocytes (Bld) [#/Vol] 1.1 10*3/uL High 0-0.9 [facility] Comment on above: Performed By: #### Renita BC, BMP, 1750-, 58055-9, 2776-, 273-8, 46374-8 #### [facility] ([id number]) [address], [address] [place] [address] Monocytes/100 WBC (Bld) 9.6 % Normal [facility] Comment on above: Performed By: #### C BC, BMP, 1750-7, 25445-0, 2777-1, 2731-8, 49200-1 #### [facility] ([id number]) [address], [address] [place] [address] Neutrophils/100 WBC (Bld) 79.2 % Normal [facility] Comment on above: Performed By: #### C BC, BMP, 1750-7, 24978-8, 7-1, 2731-8, 58968-2 #### [facility] ([id number]) [address], [address] [place] [address] Platelet mean volume (Bld) [Entitic vol] 8.1 fL Normal 7-12 [facility] Comment on above: Performed By: #### Renita BC, BMP, 1750-, 62570-3, 2776-1, 2730-8, 55808-9 #### [facility] ([id number]) [address], [address] [place] [address] Platelets (Bld) [#/Vol] 216 10*3/uL Normal 150-450 [facility] Comment on above: Performed By: #### Renita BC, BMP, 1750-, 69145-4, 7-1, 2731-8, 57863-2 #### [facility] ([id number]) [address], [address] [place] [address] RBC COUNT 3.59 X10E12/L Low 3.80-5.20 [facility] Comment on above: Performed By: #### C BC, BMP, 1750-, 46668-8, 2776-, 273-8, 33838-3 #### [facility] ([id number]) [address], [address] [place] [address] WBC (Bld) [#/Vol] 11.4 10*3/uL High 4.0-11.0 [facility] Comment on above: Performed By: #### C , [facility], 1751-7, 05828-3, 2777-1, 2731-8, 57519-8 #### [facility] ([id number]) [address], [address] [place] [address] Glucose Glucometer (BldC) [M ass/Vol]on 06-25-2024 Glucose [Mass/Vol] 159 mg/dL High 65-99 [facility] Glucose [Mass/Vol] 80 mg/dL Normal 65-99 [facility] SARS/FLU A+B/RSV by NAAT/Mol ecularon 06-25-2024 SARS/FLU A+B/RSV by NAAT/Molecular FLU A PCR Negative (qualifier value) FLU B PCR Negative (qualifier value) RSV by PCR Negative (qualifier value) SARS CoV 2 Not detected (qualifier value) NOTE The Xpert Xpress SARS-CoV-2/Flu/RSV Plus test is a rapid, multiplexed real-time RT-PCR test intended for the simultaneous qualitative detection and differentiation of SARS-CoV-2, influenza A, influenza B and respiratory syncytial virus (RSV) viral RNA from individuals suspected of respiratory viral infection consistent with COVID-19 by their healthcare provider. This test has not been validated in asymptomatic patients. The Xpert Xpress SARS-CoV-2 test is intended for use by qualified and trained operators who are performing tests using either [employer] or [employer] systems and is limited to laboratories that meet the CLIA requirements to perform high and moderate complexity tests. The Xpert Xpress SARS-CoV-2/Flu/RSV Plus is only for use under the Food and Drug Administration's Emergency Use Authorization. Results are for the simultaneous detection and differentiation of SARS-CoV-2, influenza A, influenza B and RSV nucleic acids in clinical specimens. SARS-CoV-2, influenza A, influenza B and RSV RNA identified by this test are generally detectable in upper respiratory samples during the acute phase of infection. Positive results are indicative of the presence of the identified virus, but do not rule out bacterial infection or co-infection with other pathogens not detected by this test. Clinical correlation with patient history and other diagnostic information is necessary to determine patient infection status. The agent detected may not be the definite cause of disease. Negative results do not preclude SARS-CoV-2, influenza A, influenza B and RSV infection and should not be used as the sole basis for treatment or other patient management decisions. Negative results must be combined with clinical observations, patient history and epidemiological information. An Invalid result may occur with specimen-associated inhibition unable to be resolved with specimen repeat. Fact Sheet for Healthcare Providers: https://www.fda.gov/med ia/170477/download Fact Sheet for Patients: https://www.fda.gov/med ia/449927/download Normal [facility] Comment on above: Performed By: #### C BC, BMP, 175-7, 79058-9, 2777-1, 2731-8, 53197-0 #### [facility] ([id number]) [address], [address] [place] [address] Troponin I.cardiac High sens itivity method [Mass/Vol]on 06-25-2024 1 HOUR TROP I, HIGH SENSITIVITY 10 ng/L Normal <16 [facility] Comment on above: Performed By: #### Renita ALLEN, BMP, 1750-7, 41336-0, 2777-1, 2731-8, 45538-1 #### [facility] ([id number]) [address] [place] [address] TROPONIN I, HIGH SENSITIVITY 9 ng/L Normal <16 [facility] Comment on above: Performed By: #### Renita BC, BMP, 175-7, 71795-7, 2777-1, 2731-8, 37917-9 #### [facility] ([id number]) [address], [address] [place] [address] BASIC METABOLIC PANLon 06-15 Anion gap [Moles/Vol] 5 mmol/L Normal 5-15 [facility] Comment on above: Performed By: #### Renita BC, BMP, 175-7, 04007-5, 2777-1, 2731-8, 43383-8 #### [facility] ([id number]) [address], [address] [place] [address] Calcium [Mass/Vol] 8.5 mg/dL Normal 8.5-10.5 [facility] Comment on above: Performed By: #### Renita BC, BMP, 1751-7, 94748-6, 2777-1, 2731-8, 94770-2 #### [facility] ([id number]) [address], [address] [place] [address] Chloride [Moles/Vol] 105 mmol/L Normal 98-109 [facility] Comment on above: Performed By: #### Renita ALLEN, BMP, 1750-7, 19787-8, 2777-1, 2731-8, 86317-2 #### [facility] ([id number]) [address], [address] [place] [address] CO2 [Moles/Vol] 23 mmol/L Normal 22-32 [facility] Comment on above: Performed By: #### Renita ALLEN, BMP, 1750-7, 94022-0, 2777-1, 2731-8, 07709-7 #### [facility] ([id number]) [address], [address] [place] [address] Creatinine [Mass/Vol] 1.62 mg/dL High 0.40-1.00 [facility] Comment on above: Result Comment: METH OD TRACEABLE TO IDMS STANDARD Performed By: #### Renita ALLEN, BMP, 1750-7, 96611-3, 2777-1, 2731-8, 04926-3 #### [facility] ([id number]) [address], [address] [place] [address] GFR/1.73 sq M.predicted among non-blacks MDRD (S/P/Bld) [Vol rate/Area] 32 mL/min/{1.73_m2} Low >59 [facility] Comment on above: Result Comment: Reported eGFR is based on the CKD-EPI 2020 equation that does not use a race coefficient. Performed By: #### C BC, BMP, 1750-7, 67739-4, 2777-1, 2731-8, 47476-7 #### [facility] ([id number]) [address], [address] [place] [address] Glucose [Mass/Vol] 319 mg/dL High 65-99 [facility] Comment on above: Performed By: #### C BC, BMP, 1750-7, 73553-1, 7-1, 2731-8, 07720-1 #### [facility] ([id number]) [address], [address] [place] [address] Potassium [Moles/Vol] 5.0 mmol/L Normal 3.5-5.0 [facility] Comment on above: Performed By: #### C BC, BMP, 1750-7, 97125-9, 7-1, 2730-8, 50715-3 #### [facility] ([id number]) [address], [address] [place] [address] Sodium [Moles/Vol] 133 mmol/L Low 134-146 [facility] Comment on above: Performed By: #### C BC, BMP, 1750-7, 85614-2, 7-1, 2731-8, 04232-6 #### [facility] ([id number]) [address], [address] [place] [address] Urea nitrogen [Mass/Vol] 48 mg/dL High 5-27 [facility] Comment on above: Performed By: #### C BC, BMP, 1750-7, 49522-5, 2777-1, 2731-8, 81012-1 #### [facility] ([id number]) [address], [address] [place] [address] CBC AND AUTO DIFFon 06-15-20 24 ABSOLUTE BASOPHIL 0.1 X10E9/L Normal 0.0-0.2 [facility] Comment on above: Performed By: #### C BC, BMP, 1750-, 81802-6, 2776-, 273-8, 74336-2 #### [facility] ([id number]) [address], [address] [place] [address] ABSOLUTE NEUTROPHIL 13.5 X10E9/L High 1.5-6.6 [facility] Comment on above: Performed By: #### C BC, BMP, 1751-05, 90814-4, 2776-, 2730-8, 16590-1 #### [facility] ([id number]) [address], [address] [place] [address] Basophils/100 WBC (Bld) 0.4 % Normal [facility] Comment on above: Performed By: #### Renita BC, BMP, 1751-05, , 2776-, 2730-8, 65737-1 #### [facility] ([id number]) [address], [address] [place] [address] Eosinophils (Bld) [#/Vol] 0.0 10*3/uL Normal 0.0-0.4 [facility] Comment on above: Performed By: #### Renita BC, BMP, 1751-05, 68527-1, 2776-, 2730-8, 02889-2 #### [facility] ([id number]) [address], [address] [place] [address] Eosinophils/100 WBC (Bld) 0.1 % Normal [facility] Comment on above: Performed By: #### C BC, BMP, 1751-05, 04442-6, 2776-, 2730-8, 02884-4 #### [facility] ([id number]) [address], [address] [place] [address] Erythrocyte distribution width (RBC) [Ratio] 15.1 % High 11.5-15.0 [facility] Comment on above: Performed By: #### C BC, BMP, 1750-, 01356-7, 2776-, 273-8, 03506-3 #### [facility] ([id number]) [address], [address] [place] [address] Hematocrit (Bld) [Volume fraction] 28.4 % Low 35-47 [facility] Comment on above: Performed By: #### C BC, BMP, 1751-05, 38104-8, 2776-, 2730-8, 88812-7 #### [facility] ([id number]) [address], [address] [place] [address] Hemoglobin (Bld) [Mass/Vol] 9.4 g/dL Low 11.7-15.5 [facility] Comment on above: Performed By: #### C BC, BMP, 1751-05, , 2776-, 2730-8, 33065-6 #### [facility] ([id number]) [address], [address] [place] [address] Lymphocytes (Bld) [#/Vol] 1.1 10*3/uL Normal 1.0-3.5 [facility] Comment on above: Performed By: #### C BC, BMP, 1751-05, 92943-4, 2776-, 2730-8, 96739-1 #### [facility] ([id number]) [address], [address] [place] [address] Lymphocytes/100 WBC (Bld) 6.9 % Normal [facility] Comment on above: Performed By: #### C BC, BMP, 1751-05, 99541-0, 2776-, 2730-8, 29681-2 #### [facility] ([id number]) [address], [address] [place] [address] MCH (RBC) [Entitic mass] 28.2 pg Normal 27-34 [facility] Comment on above: Performed By: #### C BC, BMP, 1750-7, 57945-8, 2777-1, 2731-8, 65317-0 #### [facility] ([id number]) [address], [address] [place] [address] MCHC (RBC) [Mass/Vol] 33.1 g/dL Normal 32-36 [facility] Comment on above: Performed By: #### C BC, BMP, 1750-7, 43831-4, 2777-1, 2731-8, 00988-9 #### [facility] ([id number]) [address], [address] [place] [address] MCV (RBC) [Entitic vol] 85 fL Normal 80-100 [facility] Comment on above: Performed By: #### C BC, BMP, 1750-, 87135-4, 2776-1, 273-8, 14937-6 #### [facility] ([id number]) [address], [address] [place] [address] Monocytes (Bld) [#/Vol] 0.8 10*3/uL Normal 0-0.9 [facility] Comment on above: Performed By: #### C BC, BMP, 1750-, 58432-3, 7-1, 2731-8, 87141-2 #### [facility] ([id number]) [address], [address] [place] [address] Monocytes/100 WBC (Bld) 5.3 % Normal [facility] Comment on above: Performed By: #### C BC, BMP, 1750-, 25339-1, 7-1, 273-8, 47504-1 #### [facility] ([id number]) [address], [address] [place] [address] Neutrophils/100 WBC (Bld) 87.3 % Normal [facility] Comment on above: Performed By: #### C BC, BMP, 1750-7, 71144-8, 2777-1, 2731-8, 09507-0 #### [facility] ([id number]) [address], [address] [place] [address] Platelet mean volume (Bld) [Entitic vol] 9.1 fL Normal 7-12 [facility] Comment on above: Performed By: #### C BC, BMP, 1750-7, 44312-3, 7-1, 2731-8, 09406-1 #### [facility] ([id number]) [address], [address] [place] [address] Platelets (Bld) [#/Vol] 98 10*3/uL Low 150-450 [facility] Comment on above: Performed By: #### Renita ALLEN, BMP, 1750-, 78131-1, 7-1, 2731-8, 67810-8 #### [facility] ([id number]) [address], [address] [place] [address] RBC COUNT 3.34 X10E12/L Low 3.80-5.20 [facility] Comment on above: Performed By: #### Renita BC, BMP, 1750-, 86597-1, 7-1, 2731-8, 84186-1 #### [facility] ([id number]) [address], [address] [place] [address] WBC (Bld) [#/Vol] 15.5 10*3/uL High 4.0-11.0 [facility] Comment on above: Performed By: #### Renita BC, BMP, 1750-, 14315-3, 7-1, 2731-8, 68896-0 #### [facility] ([id number]) [address], [address] [place] [address] COMPREHENSIVE METABOLIC PANE Dickson 2024 Albumin [Mass/Vol] 3.4 g/dL Normal 3.2-5.3 [facility] Comment on above: Performed By: #### C BC, BMP, 1751-7, 08996-5, 2777-1, 2731-8, 43885-5 #### [facility] ([id number]) [address], [address] [place] [address] ALP [Catalytic activity/Vol] 68 U/L Normal 39-130 [facility] Comment on above: Performed By: #### C BC, BMP, 175-7, 32718-9, 2777-1, 2731-8, 94595-7 #### [facility] ([id number]) [address], [address] [place] [address] ALT [Catalytic activity/Vol] 15 U/L Normal 0-31 [facility] Comment on above: Performed By: #### Renita BC, BMP, 1750-7, 96883-9, 2777-1, 2731-8, 28742-2 #### [facility] ([id number]) [address], [address] [place] [address] Anion gap [Moles/Vol] 10 mmol/L Normal 5-15 [facility] Comment on above: Performed By: #### C BC, BMP, 175-7, 27324-2, 2777-1, 2731-8, 84834-1 #### [facility] ([id number]) [address], [address] [place] [address] AST [Catalytic activity/Vol] 26 U/L Normal 0-41 [facility] Comment on above: Performed By: #### C BC, BMP, 175-7, 39917-2, 2777-1, 2731-8, 12205-8 #### [facility] ([id number]) [address], [address] [place] [address] Bilirubin [Mass/Vol] 1.1 mg/dL Normal 0.3-1.2 [facility] Comment on above: Result Comment: RESU LTS QUESTIONABLE DUE TO HEMOLYSIS Performed By: #### C BC, BMP, 1750-7, 32034-0, 2777-1, 2731-8, 23383-6 #### [facility] ([id number]) [address], [address] [place] [address] Calcium [Mass/Vol] 8.5 mg/dL Normal 8.5-10.5 [facility] Comment on above: Performed By: #### C BC, BMP, 1750-7, 93999-0, 2777-1, 2731-8, 65047-3 #### [facility] ([id number]) [address], [address] [place] [address] Chloride [Moles/Vol] 106 mmol/L Normal 98-109 [facility] Comment on above: Performed By: #### C BC, BMP, 1750-, 35831-1, 7-1, 2731-8, 05871-0 #### [facility] ([id number]) [address], [address] [place] [address] CO2 [Moles/Vol] 18 mmol/L Low 22-32 [facility] Comment on above: Performed By: #### Renita BC, BMP, 1750-7, 11428-9, 2777-1, 2731-8, 46831-5 #### [facility] ([id number]) [address], [address] [place] [address] Creatinine [Mass/Vol] 1.67 mg/dL High 0.40-1.00 [facility] Comment on above: Result Comment: METH OD TRACEABLE TO IDMS STANDARD Performed By: #### C BC, BMP, 1750-7, 19088-3, 2777-1, 2731-8, 63230-3 #### [facility] ([id number]) [address], [address] [place] [address] GFR/1.73 sq M.predicted among non-blacks MDRD (S/P/Bld) [Vol rate/Area] 31 mL/min/{1.73_m2} Low >59 [facility] Comment on above: Result Comment: Reported eGFR is based on the CKD-EPI 2020 equation that does not use a race coefficient. Performed By: #### C BC, BMP, 1750-7, 26187-4, 2777-1, 2731-8, 86984-5 #### [facility] ([id number]) [address], [address] [place] [address] Glucose [Mass/Vol] 182 mg/dL High 65-99 [facility] Comment on above: Performed By: #### C BC, BMP, 1750-7, 68226-3, 7-1, 273-8, 79107-1 #### [facility] ([id number]) [address], [address] [place] [address] Potassium [Moles/Vol] 5.6 mmol/L High 3.5-5.0 [facility] Comment on above: Result Comment: SPEC IMEN HEMOLYZED, RESULTS INCREASED Performed By: #### C BC, BMP, 1751-05, 48585-5, 7-1, 273-8, 64355-0 #### [facility] ([id number]) [address], [address] [place] [address] Protein [Mass/Vol] 7.3 g/dL Normal 6.0-8.0 [facility] Comment on above: Performed By: #### C BC, BMP, 1750-7, 08372-2, 2777-1, 2731-8, 60353-8 #### [facility] ([id number]) [address], [address] [place] [address] Sodium [Moles/Vol] 134 mmol/L Normal 134-146 [facility] Comment on above: Performed By: #### C BC, BMP, 1750-7, 69109-5, 2777-1, 2731-8, 65225-8 #### [facility] ([id number]) [address], [address] [place] [address] Urea nitrogen [Mass/Vol] 45 mg/dL High 5-27 [facility] Comment on above: Performed By: #### C TIFFANY, BMP, 1750-, 67502-6, 2776-, 2730-8, 62582-6 #### [facility] ([id number]) [address], [address] [place] [address] MAGNESIUMon 2024 Magnesium [Mass/Vol] 2.4 mg/dL Normal 1.8-2.6 [facility] Comment on above: Performed By: #### C TIFFANY, BMP, 1751-05, , 2776-11, 2730-8, 27146-4 #### [facility] ([id number]) [address], [address] [place] [address] CBC AND AUTO DIFFon 06-14-20 24 ABSOLUTE BASOPHIL 0.0 X10E9/L Normal 0.0-0.2 [facility] Comment on above: Performed By: #### C TIFFANY, BMP, 1751-05, , 2776-11, 8, 69965-4 #### [facility] ([id number]) [address], [address] [place] [address] ABSOLUTE NEUTROPHIL 8.2 X10E9/L High 1.5-6.6 [facility] Comment on above: Performed By: #### C BC, BMP, 1751-05, 99902-1, 2776-11, 2730-8, 52715-9 #### [facility] ([id number]) [address], [address] [place] [address] Basophils/100 WBC (Bld) 0.1 % Normal [facility] Comment on above: Performed By: #### Renita BC, BMP, 1751-05, 08874-9, 2776-1, 273-8, 11217-0 #### [facility] ([id number]) [address] [place] [address] Eosinophils (Bld) [#/Vol] 0.0 10*3/uL Normal 0.0-0.4 [facility] Comment on above: Performed By: #### C BC, BMP, 1751-05, , 2776-, 273-8, 45128-7 #### [facility] ([id number]) [address] [place] [address] Eosinophils/100 WBC (Bld) 0.0 % Normal [facility] Comment on above: Performed By: #### C BC, BMP, 1751-05, , 2776-, 2730-8, 72904-3 #### [facility] ([id number]) [address] [address] Erythrocyte distribution width (RBC) [Ratio] 14.9 % Normal 11.5-15.0 [facility] Comment on above: Performed By: #### C TIFFANY, BMP, 1751-05, , 2776-11, 2730-8, 33988-6 #### [facility] ([id number]) [address] [address] Hematocrit (Bld) [Volume fraction] 28.0 % Low 35-47 [facility] Comment on above: Performed By: #### Renita BC, BMP, 1751-05, , 2776-, 273-8, 10906-2 #### [facility] ([id number]) [address] [place] [address] Hemoglobin (Bld) [Mass/Vol] 9.2 g/dL Low 11.7-15.5 [facility] Comment on above: Performed By: #### Renita BC, BMP, 1751-05, 20910-6, 2776-1, 273-8, 66637-9 #### [facility] ([id number]) [address], [facility] [place] [address] Lymphocytes (Bld) [#/Vol] 1.1 10*3/uL Normal 1.0-3.5 [facility] Comment on above: Performed By: #### C BC, BMP, 1751-05, , 2776-, 273-8, 89058-3 #### [facility] ([id number]) [address], [facility] [place] [address] Lymphocytes/100 WBC (Bld) 10.9 % Normal [facility] Comment on above: Performed By: #### C BC, BMP, 1751-05, 85518-9, 2776-, 2730-8, 15334-5 #### [facility] ([id number]) [address], [address] [place] [address] MCH (RBC) [Entitic mass] 28.1 pg Normal 27-34 [facility] Comment on above: Performed By: #### C BC, BMP, 1751-05, 52117-3, 2776-, 273-8, 78449-4 #### [facility] ([id number]) [address], [facility] [place] [address] MCHC (RBC) [Mass/Vol] 32.7 g/dL Normal 32-36 [facility] Comment on above: Performed By: #### C BC, BMP, 1751-05, 46497-1, 2776-, 273-8, 51614-3 #### [facility] ([id number]) [address] [address] [address] [place] [address] MCV (RBC) [Entitic vol] 86 fL Normal 80-100 [facility] Comment on above: Performed By: #### C BC, BMP, 1751-7, 62486-7, 2777-1, 2731-8, 65510-0 #### [facility] ([id number]) [address], [address] [place] [address] Monocytes (Bld) [#/Vol] 0.4 10*3/uL Normal 0-0.9 [facility] Comment on above: Performed By: #### C BC, BMP, 175-7, 97534-8, 2777-1, 2731-8, 65292-1 #### [facility] ([id number]) [address], [facility] [place] [address] Monocytes/100 WBC (Bld) 4.0 % Normal [facility] Comment on above: Performed By: #### C BC, BMP, 1750-7, 43035-7, 2777-1, 2731-8, 96497-7 #### [facility] ([id number]) [address], [facility] [place] [address] Neutrophils/100 WBC (Bld) 85.0 % Normal [facility] Comment on above: Performed By: #### C BC, BMP, 1750-7, 11170-7, 2777-1, 2731-8, 22432-3 #### [facility] ([id number]) [address], [facility] [place] [address] Platelet mean volume (Bld) [Entitic vol] 8.5 fL Normal 7-12 [facility] Comment on above: Performed By: #### C BC, BMP, 175-7, 88789-9, 2777-1, 2731-8, 73680-4 #### [facility] ([id number]) [address], [facility], [place] [address] [place] [address] Platelets (Bld) [#/Vol] 194 10*3/uL Normal 150-450 [facility] Comment on above: Performed By: #### C BC, BMP, 175-7, 13006-9, 2777-1, 2731-8, 38395-9 #### [facility] ([id number]) [address], [address] [place] [address] RBC COUNT 3.26 X10E12/L Low 3.80-5.20 [facility] Comment on above: Performed By: #### C BC, BMP, 1750-7, 23766-0, 2777-1, 2731-8, 21661-1 #### [facility] ([id number]) [address], [address] [place] [address] WBC (Bld) [#/Vol] 9.7 10*3/uL Normal 4.0-11.0 [facility] Comment on above: Performed By: #### C BC, BMP, 1750-, 05710-8, 7-1, 2731-8, 67607-1 #### [facility] ([id number]) [address], [address] [place] [address] COMPREHENSIVE METABOLIC PANE Dickson 06-14-2024 Albumin [Mass/Vol] 3.6 g/dL Normal 3.2-5.3 [facility] Comment on above: Performed By: #### C BC, BMP, 1750-, 82784-7, 7-1, 2731-8, 07823-2 #### [facility] ([id number]) [address], [address] [place] [address] ALP [Catalytic activity/Vol] 65 U/L Normal 39-130 [facility] Comment on above: Performed By: #### C BC, BMP, 1750-7, 09124-1, 2777-1, 2731-8, 87059-4 #### [facility] ([id number]) [address], [address] [place] [address] ALT [Catalytic activity/Vol] 14 U/L Normal 0-31 [facility] Comment on above: Performed By: #### C BC, BMP, 1750-7, 04058-4, 2777-1, 2731-8, 04366-1 #### [facility] ([id number]) [address], [address] [place] [address] Anion gap [Moles/Vol] 7 mmol/L Normal 5-15 [facility] Comment on above: Performed By: #### C BC, BMP, 1750-7, 36513-8, 2777-1, 2731-8, 48193-4 #### [facility] ([id number]) [address], [address] [place] [address] AST [Catalytic activity/Vol] 19 U/L Normal 0-41 [facility] Comment on above: Performed By: #### Renita BC, BMP, 1750-7, 72852-3, 2777-1, 2731-8, 73524-7 #### [facility] ([id number]) [address], [address] [place] [address] Bilirubin [Mass/Vol] 0.7 mg/dL Normal 0.3-1.2 [facility] Comment on above: Performed By: #### C BC, BMP, 1750-7, 30613-9, 2777-1, 2731-8, 66559-7 #### [facility] ([id number]) [address] [address] [place] [address] Calcium [Mass/Vol] 8.6 mg/dL Normal 8.5-10.5 [facility] Comment on above: Performed By: #### C BC, BMP, 1750-7, 45230-2, 2777-1, 2731-8, 81657-7 #### [facility] ([id number]) [address], [address] [place] [address] Chloride [Moles/Vol] 100 mmol/L Normal 98-109 [facility] Comment on above: Performed By: #### Renita BC, BMP, 1750-7, 87534-2, 2777-1, 2731-8, 83587-1 #### [facility] ([id number]) [address], [address] [place] [address] CO2 [Moles/Vol] 24 mmol/L Normal 22-32 [facility] Comment on above: Performed By: #### C BC, BMP, 1750-7, 24605-3, 2777-1, 2731-8, 62496-3 #### [facility] ([id number]) [address], [address] [place] [address] Creatinine [Mass/Vol] 1.52 mg/dL High 0.40-1.00 [facility] Comment on above: Result Comment: METH OD TRACEABLE TO IDMS STANDARD Performed By: #### C BC, BMP, 1750-, 90396-2, 7-1, 2731-8, 88508-2 #### [facility] ([id number]) [address], [address] [place] [address] GFR/1.73 sq M.predicted among non-blacks MDRD (S/P/Bld) [Vol rate/Area] 35 mL/min/{1.73_m2} Low >59 [facility] Comment on above: Result Comment: Reported eGFR is based on the CKD-EPI 2020 equation that does not use a race coefficient. Performed By: #### C BC, BMP, 1750-, 44150-7, 2776-1, 2731-8, 70034-1 #### [facility] ([id number]) [address], [address] [place] [address] Glucose [Mass/Vol] 236 mg/dL High 65-99 [facility] Comment on above: Performed By: #### C BC, BMP, 1750-7, 33741-5, 2777-1, 2731-8, 49928-3 #### [facility] ([id number]) [address], [address] [place] [address] Potassium [Moles/Vol] 4.7 mmol/L Normal 3.5-5.0 [facility] Comment on above: Performed By: #### Renita ALLEN, BMP, 1750-7, 61033-3, 7-1, 2731-8, 85942-5 #### [facility] ([id number]) [address], [address] [place] [address] Protein [Mass/Vol] 7.2 g/dL Normal 6.0-8.0 [facility] Comment on above: Performed By: #### Renita ALLEN, BMP, 1750-, 62216-2, 2776-1, 273-8, 74314-1 #### [facility] ([id number]) [address], [address] [place] [address] Sodium [Moles/Vol] 131 mmol/L Low 134-146 [facility] Comment on above: Performed By: #### Renita ALLEN, BMP, 1751-05, 65257-4, 7-1, 2731-8, 42849-3 #### [facility] ([id number]) [address], [facility] [address] [place] [address] Urea nitrogen [Mass/Vol] 32 mg/dL High 5-27 [facility] Comment on above: Performed By: #### Renita ALLEN, BMP, 1751-05, 42636-0, 2776-1, 273-8, 60347-9 #### [facility] ([id number]) [address], [address] [place] [address] Glucose Glucometer (BldC) [M ass/Vol]on 06-14-2024 Glucose [Mass/Vol] 291 mg/dL High 65-99 [facility] Glucose [Mass/Vol] 288 mg/dL High 65-99 [facility] Glucose [Mass/Vol] 330 mg/dL High 65-99 [facility] Glucose [Mass/Vol] 271 mg/dL High 65-99 [facility] MAGNESIUMon 06-14-2024 Magnesium [Mass/Vol] 2.4 mg/dL Normal 1.8-2.6 [facility] Comment on above: Performed By: #### C WILSON ALLEN, 1750-, 80270-6, 2777-1, 2731-8, 49263-0 #### [facility] ([id number]) [address], [address] [place] [address] Magnesium [Mass/Vol] 1.7 mg/dL Low 1.8-2.6 [facility] Comment on above: Performed By: #### C TIFFANY, WILSON, 1751-05, 99713-6, 2776-1, 273-8, 31848-9 #### [facility] ([id number]) [address], [address] [place] [address] Procalcitonin IA [Mass/Vol]o n 06-14-2024 PROCALCITONIN 0.15 ng/mL High <0.05 [facility] Comment on above: Result Comment: NOTE <0.50 ng/mL - Low risk of severe sepsis and/or septic shock. <2.00 ng/mL - Recommend retesting within 6-24 hours. >2.00 ng/mL - High risk of sepsis and/or septic shock. Performed By: #### C WILSON ALLEN, 1751-05, 26970-4, 7-1, 2731-8, 28291-2 #### [facility] ([id number]) [address], [address] [place] [address] BLOOD CULTUREon 06-13-2024 Bacteria identified Aer cx Nom (Bld) SPECIMEN NOTES LEFT HAND CULTURE RESULTS NO GROWTH 5 DAYS Normal [facility] Comment on above: Performed By: #### C TIFFANY, WILSON, 1750-, 93485-6, 2777-1, 2731-8, 60380-1 #### [facility] ([id number]) [address], [address] [place] [address] Bacteria identified Aer cx Nom (Bld) SPECIMEN NOTES LEFT ANTECUBITAL CULTURE RESULTS NO GROWTH 5 DAYS Normal [facility] Comment on above: Performed By: #### C BC, BMP, 1750-7, 61421-9, 7-1, 2731-8, 69969-5 #### [facility] ([id number]) [address], [address] [place] [address] CBC AND AUTO DIFFon 06-13-20 24 ABSOLUTE BASOPHIL 0.0 X10E9/L Normal 0.0-0.2 [facility] Comment on above: Performed By: #### C BC, BMP, 1750-, 07860-9, 2776-1, 273-8, 63707-0 #### [facility] ([id number]) [address], [address] [place] [address] ABSOLUTE NEUTROPHIL 7.6 X10E9/L High 1.5-6.6 [facility] Comment on above: Performed By: #### C BC, BMP, 1750-, 62741-1, 7-1, 2731-8, 01493-0 #### [facility] ([id number]) [address], [address] [place] [address] Basophils/100 WBC (Bld) 0.4 % Normal [facility] Comment on above: Performed By: #### Renita BC, BMP, 1750-, 57087-2, 2776-1, 273-8, 19817-1 #### [facility] ([id number]) [address], [address] [place] [address] Eosinophils (Bld) [#/Vol] 0.0 10*3/uL Normal 0.0-0.4 [facility] Comment on above: Performed By: #### C BC, BMP, 1750-7, 46048-7, 2777-1, 2731-8, 56170-5 #### [facility] ([id number]) [address], [address] [place] [address] Eosinophils/100 WBC (Bld) 0.4 % Normal [facility] Comment on above: Performed By: #### C BC, BMP, 1750-7, 69643-4, 2777-1, 2731-8, 95260-5 #### [facility] ([id number]) [address], [address] [place] [address] Erythrocyte distribution width (RBC) [Ratio] 15.3 % High 11.5-15.0 [facility] Comment on above: Performed By: #### C BC, BMP, 1750-7, 63208-6, 7-1, 273-8, 02068-3 #### [facility] ([id number]) [address], [address] [place] [address] Hematocrit (Bld) [Volume fraction] 33.3 % Low 35-47 [facility] Comment on above: Performed By: #### C BC, BMP, 1751-05, 32824-6, 7-1, 273-8, 82403-9 #### [facility] ([id number]) [address], [address] [place] [address] Hemoglobin (Bld) [Mass/Vol] 10.8 g/dL Low 11.7-15.5 [facility] Comment on above: Performed By: #### C BC, BMP, 1751-05, 50309-1, 2776-1, 273-8, 63738-3 #### [facility] ([id number]) [address], [address] [place] [address] Lymphocytes (Bld) [#/Vol] 1.3 10*3/uL Normal 1.0-3.5 [facility] Comment on above: Performed By: #### Renita BC, BMP, 1750-7, 10079-5, 2777-1, 2731-8, 14653-5 #### [facility] ([id number]) [address], [address] [place] [address] Lymphocytes/100 WBC (Bld) 14.0 % Normal [facility] Comment on above: Performed By: #### C BC, BMP, 1750-7, 84326-5, 2777-1, 2731-8, 36656-2 #### [facility] ([id number]) [address], [address] [place] [address] MCH (RBC) [Entitic mass] 27.9 pg Normal 27-34 [facility] Comment on above: Performed By: #### C BC, BMP, 1750-, 15598-7, 7-1, 273-8, 00828-8 #### [facility] ([id number]) [address] [address] [place] [address] MCHC (RBC) [Mass/Vol] 32.3 g/dL Normal 32-36 [facility] Comment on above: Performed By: #### C BC, BMP, 1750-, 00739-5, 7-1, 273-8, 34174-3 #### [facility] ([id number]) [address], [facility] [address] [place] [address] MCV (RBC) [Entitic vol] 87 fL Normal 80-100 [facility] Comment on above: Performed By: #### Renita BC, BMP, 1750-, 45176-9, 2776-1, 273-8, 91984-6 #### [facility] ([id number]) [address], [address] [place] [address] Monocytes (Bld) [#/Vol] 0.6 10*3/uL Normal 0-0.9 [facility] Comment on above: Performed By: #### Renita BC, BMP, 1750-, 17929-6, 2777-1, 2731-8, 54318-6 #### [facility] ([id number]) [address], [address] [place] [address] Monocytes/100 WBC (Bld) 6.0 % Normal [facility] Comment on above: Performed By: #### C BC, BMP, 1750-7, 05206-9, 2777-1, 2731-8, 14807-7 #### [facility] ([id number]) [address], [address] [place] [address] Neutrophils/100 WBC (Bld) 79.2 % Normal [facility] Comment on above: Performed By: #### Renita BC, BMP, 1750-7, 33334-8, 2777-1, 2731-8, 59798-3 #### [facility] ([id number]) [address], [address] [place] [address] Platelet mean volume (Bld) [Entitic vol] 8.1 fL Normal 7-12 [facility] Comment on above: Performed By: #### Renita BC, BMP, 1751-05, 13224-1, 2777-1, 2731-8, 25030-9 #### [facility] ([id number]) [address], [address] [place] [address] Platelets (Bld) [#/Vol] 267 10*3/uL Normal 150-450 [facility] Comment on above: Performed By: #### Renita BC, BMP, 1750-, 52981-9, 2777-1, 2731-8, 17435-2 #### [facility] ([id number]) [address], [address] [place] [address] RBC COUNT 3.85 X10E12/L Normal 3.80-5.20 [facility] Comment on above: Performed By: #### Renita BC, BMP, 1750-7, 09929-8, 2777-1, 2731-8, 66965-2 #### [facility] ([id number]) [address], [address] [place] [address] WBC (Bld) [#/Vol] 9.6 10*3/uL Normal 4.0-11.0 [facility] Comment on above: Performed By: #### C BC, BMP, 175-7, 94853-6, 2777-1, 2731-8, 37389-9 #### [facility] ([id number]) [address], [address] [place] [address] COMPREHENSIVE METABOLIC PANE Dickson 06-13-2024 Albumin [Mass/Vol] 4.2 g/dL Normal 3.2-5.3 [facility] Comment on above: Performed By: #### Renita BC, BMP, 1750-7, 06299-0, 2777-1, 2731-8, 21671-2 #### [facility] ([id number]) [address], [address] [place] [address] ALP [Catalytic activity/Vol] 82 U/L Normal 39-130 [facility] Comment on above: Performed By: #### Renita BC, BMP, 1750-7, 65274-4, 2777-1, 2731-8, 70588-2 #### [facility] ([id number]) [address], [address] [place] [address] ALT [Catalytic activity/Vol] 14 U/L Normal 0-31 [facility] Comment on above: Performed By: #### Renita BC, BMP, 175-7, 17531-4, 2777-1, 2731-8, 49986-7 #### [facility] ([id number]) [address], [address] [place] [address] Anion gap [Moles/Vol] 11 mmol/L Normal 5-15 [facility] Comment on above: Performed By: #### Renita BC, BMP, 175-7, 32460-6, 2777-1, 2731-8, 58975-5 #### [facility] ([id number]) [address], [address] [place] [address] AST [Catalytic activity/Vol] 19 U/L Normal 0-41 [facility] Comment on above: Performed By: #### C BC, BMP, 1750-7, 39525-9, 2777-1, 2731-8, 93885-8 #### [facility] ([id number]) [address], [address] [place] [address] Bilirubin [Mass/Vol] 0.4 mg/dL Normal 0.3-1.2 [facility] Comment on above: Performed By: #### C BC, BMP, 1750-7, 95116-4, 2777-1, 2731-8, 58264-2 #### [facility] ([id number]) [address], [address] [place] [address] Calcium [Mass/Vol] 9.4 mg/dL Normal 8.5-10.5 [facility] Comment on above: Performed By: #### Renita BC, BMP, 1750-7, 04423-1, 2777-1, 2731-8, 35044-7 #### [facility] ([id number]) [address], [address] [place] [address] Chloride [Moles/Vol] 100 mmol/L Normal 98-109 [facility] Comment on above: Performed By: #### Renita BC, BMP, 1750-7, 84571-8, 2777-1, 2731-8, 08676-5 #### [facility] ([id number]) [address], [address] [place] [address] CO2 [Moles/Vol] 25 mmol/L Normal 22-32 [facility] Comment on above: Performed By: #### Renita BC, BMP, 1750-7, 61653-7, 2777-1, 2731-8, 75064-7 #### [facility] ([id number]) [address], [address] [place] [address] Creatinine [Mass/Vol] 1.38 mg/dL High 0.40-1.00 [facility] Comment on above: Result Comment: METH OD TRACEABLE TO IDMS STANDARD Performed By: #### C TIFFANY BMP, 7, 51637-6, 2777-1, 2731-8, 34246-1 #### [facility] ([id number]) [address], [address] [place] [address] GFR/1.73 sq M.predicted among non-blacks MDRD (S/P/Bld) [Vol rate/Area] 39 mL/min/{1.73_m2} Low >59 [facility] Comment on above: Result Comment: Reported eGFR is based on the CKD-EPI 2020 equation that does not use a race coefficient. Performed By: #### C WILSON ALLEN, 1751-05, 74691-2, 7-1, 2731-8, 54728-0 #### [facility] ([id number]) [address], [address] [place] [address] Glucose [Mass/Vol] 159 mg/dL High 65-99 [facility] Comment on above: Performed By: #### C WILSON ALLEN, 1751-05, 48799-9, 2776-1, 2731-8, 82959-8 #### [facility] ([id number]) [address], [address] [place] [address] Potassium [Moles/Vol] 4.6 mmol/L Normal 3.5-5.0 [facility] Comment on above: Performed By: #### C TIFFANY, BMP, 7, 24106-9, 7-1, 2731-8, 16067-0 #### [facility] ([id number]) [address], [address] [place] [address] Protein [Mass/Vol] 8.7 g/dL High 6.0-8.0 [facility] Comment on above: Performed By: #### C BC, BMP, 1751-7, 59552-7, 2777-1, 2731-8, 02541-9 #### [facility] ([id number]) [address], [address] [place] [address] Sodium [Moles/Vol] 136 mmol/L Normal 134-146 [facility] Comment on above: Performed By: #### C BC, BMP, 1751-7, 67555-2, 2777-1, 2731-8, 80470-3 #### [facility] ([id number]) [address], [address] [place] [address] Urea nitrogen [Mass/Vol] 21 mg/dL Normal 5-27 [facility] Comment on above: Performed By: #### C BC, BMP, 1751-7, 04152-4, 2777-1, 2731-8, 39115-0 #### [facility] ([id number]) [address], [address] [place] [address] CT CTA CHESTon 06-13-[address] CTA CHEST STUDY: CT angiography of the chest with contrast CLINICAL HISTORY: Positive d-dimer, shortness of breath. Back pain. COMPARISON: 02/18/2024 PET/CT TECHNIQUE: CT angiography of the chest was performed utilizing thin section axial images with coronal and sagittal reformatted images generated. 3-D maximum intensity projection coronal and sagittal reformatted images generated and reviewed. Images acquired following the uneventful administration of 100 cc Omnipaque 350 nonionic intravenous contrast. Automated exposure control was utilized. FINDINGS: Motion degraded exam, findings may be obscured. No acute findings visualized upper abdomen. Moderate-sized hiatal hernia, mildly patulous esophagus. No acute findings at the thoracic inlet, body wall. No overtly aggressive osseous lesions. Fracture deformities of T1, T2, inferior plate fractures of T7, similar to 02/18/2024 . Osseous sclerotic focus within T4. Mild cardiomegaly. Aortic valve replacement. Severe calcified coronary arterial disease. No acute aortic pathology. Moderate atherosclerotic disease of aorta. Suboptimal pulmonary arterial opacification, obscured by motion. No pulmonary embolus to the lobar level more distal pulmonary arteries are insufficiently opacified to exclude more peripheral occlusion.. Mosaic attenuation of the lungs, most often seen in the setting of small airways disease. No suspicious pulmonary parenchymal opacity. Partially visualized shunt tubing in the presternal region. IMPRESSION: 1. Suboptimal pulmonary arterial opacification, furthermore degraded by motion. No pulmonary embolus to the lobar level more distal pulmonary arteries are insufficiently opacified to exclude more peripheral occlusion. 2. Mosaic attenuation of the lungs, most often seen in the setting of small airways disease. 2. Multilevel fracture deformities, grossly similar to 02/18/2024]. All CT scans at this facility use dose modulation, iterative reconstruction, and/or weight based dosing when appropriate to reduce radiation dose to as low as reasonably achievable. Finalized by Eddi Tapia MD on 06/13/2024 8:31 AM Normal [facility] Fibrin D-dimer DDU (PPP) [Ma ss/Vol]on 06-13-2024 D DIMER 1666 ng/mL DDU High <255 [facility] Comment on above: Result Comment: Results >=255ng/mL DDU: Results may be indicative of the presence of VTE. The use of the Wells score and further diagnostic tests should be considered. Elevated D-Dimer levels can also be associated with DIC, neoplasm, , trauma and liver disease. Elevated levels of rheumatoid factor may lead to an overestimation of the D-Dimer level. Performed By: #### C , BMP, 1751-7, 90256-4, 2777-1, 2731-8, 00340-6 #### [facility] ([id number]) [address] [place] [address] Glucose Glucometer (BldC) [M ass/Vol]on 06-13-2024 Glucose [Mass/Vol] 334 mg/dL High 65-99 [facility] Glucose [Mass/Vol] 316 mg/dL High 65-99 [facility] Glucose [Mass/Vol] 309 mg/dL High 65-99 [facility] Glucose [Mass/Vol] 221 mg/dL High 65-99 [facility] Glucose [Mass/Vol] 124 mg/dL High 65-99 [facility] Lactate (P obed) [Moles/Vol]o n 06-13-2024 Lactate [Moles/Vol] 1.5 mmol/L Normal 0.4-2.0 [facility] Comment on above: Performed By: #### C TIFFANY, BMP, 1751-7, 68008-5, 2777-1, 2731-8, 14360-4 #### [facility] ([id number]) [address] [place] [address] LACTATE W/REFLEX 4.5 mmol/L Critically high 0.4-2.0 [facility] Comment on above: Performed By: #### C TIFFANY, BMP, 1750-7, 97006-1, 2777-1, 2731-8, 51140-8 #### [facility] ([id number]) [address] [place] [address] Natriuretic peptide B [Mass/ Vol]on 06-13-2024 Natriuretic peptide B (Bld) [Mass/Vol] 134 pg/mL High <100.0 [facility] Comment on above: Performed By: #### C TIFFANY, BMP, 1750-7, 21390-1, 2777-1, 2731-8, 11306-6 #### [facility] ([id number]) [address], [address] [place] [address] SARS/FLU A+B/RSV by NAAT/Mol ecularon 06-13-2024 SARS/FLU A+B/RSV by NAAT/Molecular FLU A PCR Negative (qualifier value) FLU B PCR Negative (qualifier value) RSV by PCR Negative (qualifier value) SARS CoV 2 Not detected (qualifier value) NOTE The Xpert Xpress SARS-CoV-2/Flu/RSV Plus test is a rapid, multiplexed real-time RT-PCR test intended for the simultaneous qualitative detection and differentiation of SARS-CoV-2, influenza A, influenza B and respiratory syncytial virus (RSV) viral RNA from individuals suspected of respiratory viral infection consistent with COVID-19 by their healthcare provider. This test has not been validated in asymptomatic patients. The Xpert Xpress SARS-CoV-2 test is intended for use by qualified and trained operators who are performing tests using either [employer] or [employer] systems and is limited to laboratories that meet the CLIA requirements to perform high and moderate complexity tests. The Xpert Xpress SARS-CoV-2/Flu/RSV Plus is only for use under the Food and Drug Administration's Emergency Use Authorization. Results are for the simultaneous detection and differentiation of SARS-CoV-2, influenza A, influenza B and RSV nucleic acids in clinical specimens. SARS-CoV-2, influenza A, influenza B and RSV RNA identified by this test are generally detectable in upper respiratory samples during the acute phase of infection. Positive results are indicative of the presence of the identified virus, but do not rule out bacterial infection or co-infection with other pathogens not detected by this test. Clinical correlation with patient history and other diagnostic information is necessary to determine patient infection status. The agent detected may not be the definite cause of disease. Negative results do not preclude SARS-CoV-2, influenza A, influenza B and RSV infection and should not be used as the sole basis for treatment or other patient management decisions. Negative results must be combined with clinical observations, patient history and epidemiological information. An Invalid result may occur with specimen-associated inhibition unable to be resolved with specimen repeat. Fact Sheet for Healthcare Providers: https://www.fda.gov/med ia/518095/download Fact Sheet for Patients: https://www.fda.gov/med ia/013480/download Normal [facility] Comment on above: Performed By: #### C , [facility], 1751-7, 80626-3, 2777-1, 2731-8, 45233-2 #### [facility] ([id number]) [address], [address] [place] [address] Troponin I.cardiac High sens itivity method [Mass/Vol]on 06-13-2024 1 HOUR TROP I, HIGH SENSITIVITY 23 ng/L High <16 [facility] Comment on above: Result Comment: Elevations of hs-Troponin may be due to causes other than myocardial ischemia. Recommend serial hs-Troponin testing be performed. For the initial evaluation and management of chest pain patients, refer to the algorithms linked below. Emergency Patient: [email or web address] Inpatient: [email or web address] Performed By: #### C BC, BMP, 1750-7, 28789-5, 2777-1, 2731-8, 91007-2 #### [facility] ([id number]) [address] [place] [address] TROPONIN I, HIGH SENSITIVITY 18 ng/L High <16 [facility] Comment on above: Result Comment: Elevations of hs-Troponin may be due to causes other than myocardial ischemia. Recommend serial hs-Troponin testing be performed. For the initial evaluation and management of chest pain patients, refer to the algorithms linked below. Emergency Patient: [email or web address] Inpatient: [email or web address] Performed By: #### C BC, BMP, 1750-7, 92859-5, 7-1, 2731-8, 65539-2 #### [facility] ([id number]) [address], [address] [place] [address] URINALYSISon 06-13-2024 Bilirubin Ql (U) Negative Normal NEG [facility] Comment on above: Performed By: #### C BC, BMP, 1750-7, 78388-2, 2777-1, 2731-8, 79265-3 #### [facility] ([id number]) [address], [address] [place] [address] BLOOD/HGB SMALL Abnormal NEG [facility] Comment on above: Performed By: #### C BC, BMP, 1750-7, 06735-3, 2777-1, 2731-8, 24451-8 #### [facility] ([id number]) [address], [address] [place] [address] Color (U) YELLOW Normal YELLOW [facility] Comment on above: Performed By: #### C BC, BMP, 1750-7, 43152-1, 2777-1, 2731-8, 55317-8 #### [facility] ([id number]) [address], [address] [place] [address] Glucose Ql (U) 500 mg/dL Abnormal NEG [facility] Comment on above: Performed By: #### Renita BC, BMP, 1750-7, 81453-5, 2777-1, 2731-8, 58637-9 #### [facility] ([id number]) [address], [address] [place] [address] Ketones Ql (U) 15 mg/dL Abnormal NEG [facility] Comment on above: Performed By: #### Renita ALLEN, BMP, 1750-7, 46742-0, 2777-1, 2731-8, 49111-5 #### [facility] ([id number]) [address], [address] [place] [address] Leukocyte esterase Test strip Ql (U) Negative Normal NEG [facility] Comment on above: Performed By: #### Renita BC, BMP, 175-7, 90405-3, 2777-1, 2731-8, 41033-9 #### [facility] ([id number]) [address], [address] [place] [address] Nitrite Ql (U) Negative Normal NEG [facility] Comment on above: Performed By: #### Renita BC, BMP, 175-7, 93888-8, 2777-1, 2731-8, 19717-2 #### [facility] ([id number]) [address], [address] [place] [address] pH (U) 7.0 [pH] Normal 5.0-8.5 [facility] Comment on above: Performed By: #### C TIFFANY, BMP, 175-7, 60671-5, 2777-1, 2731-8, 87036-5 #### [facility] ([id number]) [address], [facility] [address] [place] [address] Protein Ql (U) Negative Normal NEG [facility] Comment on above: Performed By: #### Renita ALLEN, BMP, 1750-7, 27688-4, 2777-1, 2731-8, 78441-2 #### [facility] ([id number]) [address], [facility] [place] [address] R.B.CELLS 1 /hpf Normal 0-5 [facility] Comment on above: Performed By: #### Renita ALLEN, BMP, 1750-7, 52814-7, 2777-1, 2731-8, 20923-8 #### [facility] ([id number]) [address], [facility] [place] [address] Specific gravity (U) [Rel density] 1.015 Normal 1.003-1.035 [facility] Comment on above: Performed By: #### Renita ALLEN, BMP, 1750-7, 28363-4, 7-1, 2731-8, 74138-1 #### [facility] ([id number]) [address] [address] [place] [address] SQUAMOUS EPITHELIUM 0 to 1 Normal 0-5 [facility] Comment on above: Performed By: #### Renita ALLEN, BMP, 1750-7, 88215-1, 2777-1, 2731-8, 61011-0 #### [facility] ([id number]) [address] [address] [place] [address] TURBIDITY CLEAR Normal CLEAR [facility] Comment on above: Performed By: #### C BC, BMP, 1751-7, 54045-6, 2777-1, 2731-8, 60748-4 #### [facility] ([id number]) [address], [address] [place] [address] Urobilinogen Qn (U) 0.2 {Artie'U}/dL Normal <1.1 [facility] Comment on above: Performed By: #### C BC, BMP, 1751-7, 77581-7, 2777-1, 2731-8, 98603-7 #### [facility] ([id number]) [address], [address] [place] [address] W.B.CELLS 0 /hpf Normal 0-5 [facility] Comment on above: Performed By: #### C BC, BMP, 1751-7, 17011-8, 2777-1, 2731-8, 12208-7 #### [facility] ([id number]) [address], [address] [place] [address] URINE CULTUREon 06-13-2024 Bacteria identified Cx Nom (U) CULTURE RESULTS <10,000 ORGANISMS/ML NORMAL URO GENITAL BAILEY Normal [facility] Comment on above: Performed By: #### C BC, BMP, 1751-7, 04482-2, 2777-1, 2731-8, 80958-8 #### [facility] ([id number]) [address], [address] [place] [address] XR CHEST 1 VWon 06-13-2024 XR CHEST 1 VW XR CHEST 1 VW Single view chest History: Difficulty breathing, shortness of breath. Comparison: 09/27/2023 Findings: Right chest wall catheter tubing. Stable cardiomediastinal silhouette with postoperative changes of the aortic valve hyperinflation. Suspect subtle interstitial/reticular opacities of the lower lobes without focal airspace opacity, significant effusion, or pneumothorax Impression: Coarsened lower lobe interstitial markings are nonspecific though appear slightly increased from prior. Correlate with any pulmonary edema or atypical/viral pneumonia . Finalized by Sang Khalil MD on 06/13/2024 7:25 AM Normal [facility] CANCER ANTIGEN 27.29on 06-02 CANCER ANTGN 27.29 11.5 U/mL Normal <=39.0 [facility] Comment on above: Result Comment: NOTE INTERPRETIVE INFORMATION: Cancer Antigen 27.29 The CA 27.29 assay is intended for use in monitorin) disease progression and/or response to therapy in patients with metastatic disease, and 2) disease recurrence in patients treated previously for stages II or III breast carcinoma who are clinically free of the disease. Serial testing in patients who are clinically free of disease should be used in conjunction with other clinical methods for early detection of cancer recurrence. Limitations: Patients with confirmed breast carcinoma frequently have CA 27.29 assay values in the same range as healthy individuals. Elevations may also be observed in patients with non malignant disease. Results of this test must always be interpreted in the context of morphologic and other relevant data, and should not be used alone for a diagnosis of malignancy. Methodology: [employer] IM BR 27.29 (BR) chemiluminescent immunoassay was used. Results obtained with different assay methods or kits cannot be used interchangeably. Performed By: [facility] [address] [place] [address] [employer]: Brendon Ruiz MD, PhD CLIA Number: [id number] Performed By: #### C WILSON ALLEN, 1750-7, 31719-9, 2777-1, 2731-8, 15033-4 #### [facility] ([id number]) [address] [facility] [facility] [place] [address] CBC AND AUTO DIFFon 06-02-20 24 ABSOLUTE BASOPHIL 0.0 X10E9/L Normal 0.0-0.2 [facility] Comment on above: Performed By: #### C WILSON ALLEN, 1750-, 24378-0, 2777-1, 2731-8, 98937-7 #### [facility] ([id number]) [address] [facility] [place] [address] ABSOLUTE NEUTROPHIL 3.2 X10E9/L Normal 1.5-6.6 [facility] Comment on above: Performed By: #### C BC, BMP, 1750-7, 67857-3, 2777-1, 2731-8, 72560-5 #### [facility] ([id number]) [address], [address] [place] [address] Basophils/100 WBC (Bld) 0.7 % Normal [facility] Comment on above: Performed By: #### C BC, BMP, 1750-, 05681-6, 7-1, 2731-8, 09293-2 #### [facility] ([id number]) [address], [address] [place] [address] Eosinophils (Bld) [#/Vol] 0.2 10*3/uL Normal 0.0-0.4 [facility] Comment on above: Performed By: #### C BC, BMP, 1751-05, 43626-3, 2776-1, 273-8, 58180-0 #### [facility] ([id number]) [address], [address] [place] [address] Eosinophils/100 WBC (Bld) 4.2 % Normal [facility] Comment on above: Performed By: #### Renita BC, BMP, 1750-, 45500-4, 2776-1, 273-8, 51145-6 #### [facility] ([id number]) [address], [address] [place] [address] Erythrocyte distribution width (RBC) [Ratio] 15.2 % High 11.5-15.0 [facility] Comment on above: Performed By: #### C BC, BMP, 1750-, 35510-0, 2776-1, 273-8, 00677-7 #### [facility] ([id number]) [address], [address] [place] [address] Hematocrit (Bld) [Volume fraction] 30.9 % Low 35-47 [facility] Comment on above: Performed By: #### C BC, BMP, 1750-7, 08650-5, 2777-1, 2731-8, 81034-9 #### [facility] ([id number]) [address], [address] [place] [address] Hemoglobin (Bld) [Mass/Vol] 10.3 g/dL Low 11.7-15.5 [facility] Comment on above: Performed By: #### C BC, BMP, 1750-7, 91862-6, 2777-1, 2731-8, 02311-4 #### [facility] ([id number]) [address], [address] [place] [address] Lymphocytes (Bld) [#/Vol] 1.4 10*3/uL Normal 1.0-3.5 [facility] Comment on above: Performed By: #### C BC, BMP, 1750-7, 23728-5, 7-1, 2731-8, 07656-5 #### [facility] ([id number]) [address], [address] [place] [address] Lymphocytes/100 WBC (Bld) 26.6 % Normal [facility] Comment on above: Performed By: #### C BC, BMP, 1750-7, 47088-4, 7-1, 2731-8, 25063-3 #### [facility] ([id number]) [address], [address] [place] [address] MCH (RBC) [Entitic mass] 28.7 pg Normal 27-34 [facility] Comment on above: Performed By: #### C BC, BMP, 1750-7, 10994-7, 2777-1, 2731-8, 23588-4 #### [facility] ([id number]) [address], [address] [place] [address] MCHC (RBC) [Mass/Vol] 33.2 g/dL Normal 32-36 [facility] Comment on above: Performed By: #### C BC, BMP, 1750-7, 36727-3, 2777-1, 2731-8, 93037-0 #### [facility] ([id number]) [address], [address] [place] [address] MCV (RBC) [Entitic vol] 86 fL Normal 80-100 [facility] Comment on above: Performed By: #### C BC, BMP, 1750-, 71982-4, 7-1, 273-8, 83031-2 #### [facility] ([id number]) [address], [address] [place] [address] Monocytes (Bld) [#/Vol] 0.4 10*3/uL Normal 0-0.9 [facility] Comment on above: Performed By: #### Renita BC, BMP, 1750-, 28784-8, 2776-1, 273-8, 45959-2 #### [facility] ([id number]) [address], [address] [place] [address] Monocytes/100 WBC (Bld) 7.4 % Normal [facility] Comment on above: Performed By: #### Renita BC, BMP, 1750-, 35971-5, 7-1, 2731-8, 35031-1 #### [facility] ([id number]) [address], [address] [place] [address] Neutrophils/100 WBC (Bld) 61.1 % Normal [facility] Comment on above: Performed By: #### Renita BC, BMP, 1750-, 73291-6, 2776-, 273-8, 86888-9 #### [facility] ([id number]) [address], [address] [place] [address] Platelet mean volume (Bld) [Entitic vol] 8.5 fL Normal 7-12 [facility] Comment on above: Performed By: #### C BC, BMP, 1750-7, 22039-4, 2777-1, 2731-8, 35706-9 #### [facility] ([id number]) [address], [address] [place] [address] Platelets (Bld) [#/Vol] 247 10*3/uL Normal 150-450 [facility] Comment on above: Performed By: #### C BC, BMP, 1750-7, 65416-7, 2777-1, 2731-8, 66026-5 #### [facility] ([id number]) [address] [facility] [place] [address] RBC COUNT 3.58 X10E12/L Low 3.80-5.20 [facility] Comment on above: Performed By: #### C BC, BMP, 1750-7, 29746-1, 2777-1, 2731-8, 05711-9 #### [facility] ([id number]) [address] [facility] [place] [address] WBC (Bld) [#/Vol] 5.3 10*3/uL Normal 4.0-11.0 [facility] Comment on above: Performed By: #### C BC, BMP, 1750-7, 05138-5, 2777-1, 2731-8, 46737-9 #### [facility] ([id number]) [address], [address] [place] [address] COMPREHENSIVE METABOLIC PANE Dickson 06-02-2024 Albumin [Mass/Vol] 3.7 g/dL Normal 3.2-5.3 [facility] Comment on above: Performed By: #### C BC, BMP, 1750-7, 84853-7, 2777-1, 2731-8, 56454-9 #### [facility] ([id number]) [address], [address] [place] [address] ALP [Catalytic activity/Vol] 72 U/L Normal 39-130 [facility] Comment on above: Performed By: #### C BC, BMP, 1751-7, 88548-9, 2777-1, 2731-8, 21990-1 #### [facility] ([id number]) [address], [address] [place] [address] ALT [Catalytic activity/Vol] 10 U/L Normal 0-31 [facility] Comment on above: Performed By: #### C BC, BMP, 175-7, 02564-9, 2777-1, 2731-8, 05255-7 #### [facility] ([id number]) [address], [address] [place] [address] Anion gap [Moles/Vol] 9 mmol/L Normal 5-15 [facility] Comment on above: Performed By: #### Renita BC, BMP, 1750-7, 09970-7, 2777-1, 2731-8, 22166-4 #### [facility] ([id number]) [address], [address] [place] [address] AST [Catalytic activity/Vol] 16 U/L Normal 0-41 [facility] Comment on above: Performed By: #### Renita BC, BMP, 1750-7, 34085-6, 2777-1, 2731-8, 60399-2 #### [facility] ([id number]) [address], [address] [place] [address] Bilirubin [Mass/Vol] 0.3 mg/dL Normal 0.3-1.2 [facility] Comment on above: Performed By: #### C BC, BMP, 175-7, 88613-6, 2777-1, 2731-8, 41978-7 #### [facility] ([id number]) [address], [address] [place] [address] Calcium [Mass/Vol] 9.1 mg/dL Normal 8.5-10.5 [facility] Comment on above: Performed By: #### C BC, BMP, 1750-7, 61574-2, 2777-1, 2731-8, 66534-6 #### [facility] ([id number]) [address], [address] [place] [address] Chloride [Moles/Vol] 101 mmol/L Normal 98-109 [facility] Comment on above: Performed By: #### C BC, BMP, 1750-7, 15077-5, 2777-1, 2731-8, 51046-5 #### [facility] ([id number]) [address], [address] [place] [address] CO2 [Moles/Vol] 29 mmol/L Normal 22-32 [facility] Comment on above: Performed By: #### C BC, BMP, 1750-7, 40554-1, 2777-1, 2731-8, 35803-3 #### [facility] ([id number]) [address], [address] [place] [address] Creatinine [Mass/Vol] 1.38 mg/dL High 0.40-1.00 [facility] Comment on above: Result Comment: METH OD TRACEABLE TO IDMS STANDARD Performed By: #### C BC, BMP, 1750-7, 02726-8, 7-1, 2731-8, 20484-7 #### [facility] ([id number]) [address] [place] [address] GFR/1.73 sq M.predicted among non-blacks MDRD (S/P/Bld) [Vol rate/Area] 39 mL/min/{1.73_m2} Low >59 [facility] Comment on above: Result Comment: Reported eGFR is based on the CKD-EPI 2020 equation that does not use a race coefficient. Performed By: #### C BC, BMP, 1750-7, 01554-1, 2777-1, 2731-8, 04228-4 #### [facility] ([id number]) [address], [address] [place] [address] Glucose [Mass/Vol] 236 mg/dL High 65-99 [facility] Comment on above: Performed By: #### C BC, BMP, 1751-7, 68220-5, 2777-1, 2731-8, 56201-8 #### [facility] ([id number]) [address], [address] [place] [address] Potassium [Moles/Vol] 5.0 mmol/L Normal 3.5-5.0 [facility] Comment on above: Performed By: #### C BC, BMP, 175-7, 03627-7, 2777-1, 2731-8, 73955-0 #### [facility] ([id number]) [address], [address] [place] [address] Protein [Mass/Vol] 7.5 g/dL Normal 6.0-8.0 [facility] Comment on above: Performed By: #### Renita BC, BMP, 1750-7, 36324-1, 2777-1, 2731-8, 99004-9 #### [facility] ([id number]) [address], [address] [place] [address] Sodium [Moles/Vol] 139 mmol/L Normal 134-146 [facility] Comment on above: Performed By: #### Renita BC, BMP, 175-7, 00066-6, 2777-1, 2731-8, 97855-8 #### [facility] ([id number]) [address] [place] [address] Urea nitrogen [Mass/Vol] 19 mg/dL Normal 5-27 [facility] Comment on above: Performed By: #### Renita BC, BMP, 175-7, 40876-8, 2777-1, 2731-8, 17203-7 #### [facility] ([id number]) [address], [address] [place] [address] Cancer Ag 15-3 Qnon 06-02-20 24 CA 15 3 7.7 U/mL Normal 0.0-31.3 [facility] Comment on above: Result Comment: The method used for this test is [employer] DXI chemiluminescent immunoassay. Values obtained by different assay methods cannot be used interchangeably. Performed By: #### C BC, BMP, 1750-7, 81914-3, 2777-1, 2731-8, 92689-4 #### [facility] ([id number]) [address] [place] [address] BASIC METABOLIC PANLon 04-13 Anion gap [Moles/Vol] 6 mmol/L Normal 5-15 [facility] Comment on above: Performed By: #### Renita ALLEN BMP, 1750-7, 62830-0, 2777-1, 2731-8, 08770-1 #### [facility] ([id number]) [address] [place] [address] Calcium [Mass/Vol] 8.8 mg/dL Normal 8.5-10.5 [facility] Comment on above: Performed By: #### Renita ALLEN, BMP, 1750-7, 11783-0, 2777-1, 2731-8, 19411-9 #### [facility] ([id number]) [address] [place] [address] Chloride [Moles/Vol] 105 mmol/L Normal 98-109 [facility] Comment on above: Performed By: #### Renita BC, BMP, 1750-7, 54501-3, 2777-1, 2731-8, 57503-6 #### [facility] ([id number]) [address] [place] [address] CO2 [Moles/Vol] 26 mmol/L Normal 22-32 [facility] Comment on above: Performed By: #### Renita BC, BMP, 175-7, 37487-4, 2777-1, 2731-8, 66230-7 #### [facility] ([id number]) [address] [place] [address] Creatinine [Mass/Vol] 1.53 mg/dL High 0.40-1.00 [facility] Comment on above: Result Comment: METH OD TRACEABLE TO IDMS STANDARD Performed By: #### C BC, BMP, 175-7, 25298-0, 2777-1, 2731-8, 77262-1 #### [facility] ([id number]) [address] [place] [address] GFR/1.73 sq M.predicted among non-blacks MDRD (S/P/Bld) [Vol rate/Area] 35 mL/min/{1.73_m2} Low >59 [facility] Comment on above: Result Comment: Reported eGFR is based on the CKD-EPI 2020 equation that does not use a race coefficient. Performed By: #### C BC, BMP, 1750-7, 40784-9, 2777-1, 2731-8, 50171-2 #### [facility] ([id number]) [address] [place] [address] Glucose [Mass/Vol] 107 mg/dL High 65-99 [facility] Comment on above: Performed By: #### C BC, BMP, 175-7, 65810-3, 2777-1, 2731-8, 82036-4 #### [facility] ([id number]) [address] [place] [address] Potassium [Moles/Vol] 4.1 mmol/L Normal 3.5-5.0 [facility] Comment on above: Performed By: #### C BC, BMP, 175-7, 87799-7, 2777-1, 2731-8, 79615-4 #### [facility] ([id number]) [address] [place] [address] Sodium [Moles/Vol] 137 mmol/L Normal 134-146 [facility] Comment on above: Performed By: #### C BC, BMP, 1751-7, 76642-6, 2777-1, 2731-8, 40109-8 #### [facility] ([id number]) [address] [place] [address] Urea nitrogen [Mass/Vol] 27 mg/dL Normal 5-27 [facility] Comment on above: Performed By: #### C BC, BMP, 1750-7, 90738-7, 2777-1, 2731-8, 48142-3 #### [facility] ([id number]) [address] [place] [address] CBC AND AUTO DIFFon 05-30-20 24 ABSOLUTE BASOPHIL 0.0 X10E9/L Normal 0.0-0.2 [facility] Comment on above: Performed By: #### C BCA, BMP #### [facility] ([id number]) [address] [place] [address] #### HA1C #### [facility] ([id number]) [address] [place] [address] ABSOLUTE NEUTROPHIL 6.3 X10E9/L Normal 1.5-6.6 [facility] Comment on above: Performed By: #### Renita BCA, BMP #### [facility] ([id number]) [address] [place] [address] #### HA1C #### [facility] ([id number]) [address] [place] [address] Basophils/100 WBC (Bld) 0.5 % Normal [facility] Comment on above: Performed By: #### Renita BCA, BMP #### [facility] ([id number]) [address] [place] [address] #### HA1C #### [facility] ([id number]) [address] [place] [address] Eosinophils (Bld) [#/Vol] 0.7 10*3/uL High 0.0-0.4 [facility] Comment on above: Performed By: #### C BCA, BMP #### [facility] ([id number]) [address] [place] [address] #### HA1C #### [facility] ([id number]) [address] [place] [address] Eosinophils/100 WBC (Bld) 6.6 % Normal [facility] Comment on above: Performed By: #### C BCA, BMP #### [facility] ([id number]) [address] [place] [address] #### HA1C #### [facility] ([id number]) [address] [place] [address] Erythrocyte distribution width (RBC) [Ratio] 14.9 % Normal 11.5-15.0 [facility] Comment on above: Performed By: #### C BCA, BMP #### [facility] ([id number]) [address] [place] [address] #### HA1C #### [facility] ([id number]) [address] [place] [address] Hematocrit (Bld) [Volume fraction] 26.3 % Low 35-47 [facility] Comment on above: Performed By: #### C BCA, BMP #### [facility] ([id number]) [address] [place] [address] #### HA1C #### [facility] ([id number]) [address] [place] [address] Hemoglobin (Bld) [Mass/Vol] 8.9 g/dL Low 11.7-15.5 [facility] Comment on above: Performed By: #### C BCA, BMP #### [facility] ([id number]) [address] [place] [address] #### HA1C #### [facility] ([id number]) [address], [address] [place] [address] Lymphocytes (Bld) [#/Vol] 1.6 10*3/uL Normal 1.0-3.5 [facility] Comment on above: Performed By: #### C BCA, BMP #### [facility] ([id number]) [address] [place] [address] #### HA1C #### [facility] ([id number]) [address], [address] [place] [address] Lymphocytes/100 WBC (Bld) 16.8 % Normal [facility] Comment on above: Performed By: #### C BCA, BMP #### [facility] ([id number]) [address] [place] [address] #### HA1C #### [facility] ([id number]) [address], [address] [place] [address] MCH (RBC) [Entitic mass] 29.2 pg Normal 27-34 [facility] Comment on above: Performed By: #### C BCA, BMP #### [facility] ([id number]) [address] [place] [address] #### HA1C #### [facility] ([id number]) [address], [address] [place] [address] MCHC (RBC) [Mass/Vol] 33.7 g/dL Normal 32-36 [facility] Comment on above: Performed By: #### C BCA, BMP #### [facility] ([id number]) [address] [place] [address] #### HA1C #### [facility] ([id number]) [address], [address] [place] [address] MCV (RBC) [Entitic vol] 87 fL Normal 80-100 [facility] Comment on above: Performed By: #### C BCA, BMP #### [facility] ([id number]) [address] [place] [address] 19841 #### HA1C #### [facility] ([id number]) [address], [address] [place] [address] Monocytes (Bld) [#/Vol] 1.1 10*3/uL High 0-0.9 [facility] Comment on above: Performed By: #### C BCA, BMP #### [facility] ([id number]) [address] [place] [address] #### HA1C #### [facility] ([id number]) [address], [address] [place] [address] Monocytes/100 WBC (Bld) 11.5 % Normal [facility] Comment on above: Performed By: #### C BCA, BMP #### [facility] ([id number]) [address] [place] [address] #### HA1C #### [facility] ([id number]) [address] [address] [place] [address] Neutrophils/100 WBC (Bld) 64.6 % Normal [facility] Comment on above: Performed By: #### C BCA, BMP #### [facility] ([id number]) [address] [place] [address] #### HA1C #### [facility] ([id number]) [address], [address] [place] [address] Platelet mean volume (Bld) [Entitic vol] 8.1 fL Normal 7-12 [facility] Comment on above: Performed By: #### C NATIVIDAD, BMP #### [facility] ([id number]) [address] [place] [address] #### HA1C #### [facility] ([id number]) [address], [address] [place] [address] Platelets (Bld) [#/Vol] 245 10*3/uL Normal 150-450 [facility] Comment on above: Performed By: #### Renita HENSON, BMP #### [facility] ([id number]) [address] [place] [address] #### HA1C #### [facility] ([id number]) [address], [address] [place] [address] RBC COUNT 3.03 X10E12/L Low 3.80-5.20 [facility] Comment on above: Performed By: #### C NATIVIDAD, BMP #### [facility] ([id number]) [address] [place] [address] #### HA1C #### [facility] ([id number]) [address], [address] [place] [address] WBC (Bld) [#/Vol] 9.8 10*3/uL Normal 4.0-11.0 [facility] Comment on above: Performed By: #### C NATIVIDAD, BMP #### [facility] ([id number]) [address] [place] [address] #### HA1C #### [facility] ([id number]) [address], [address] [place] [address] HGB A1C (GLYCO-HGB)on 2023 Glucose [Mass/Vol] 171 mg/dL Normal [facility] Comment on above: Performed By: #### C TIFFANY, WILSON, 1751-7, 31628-3, 2777-1, 2731-8, 31084-8 #### [facility] ([id number]) [address], [address] [place] [address] HbA1c (Bld) [Mass fraction] 7.6 % High 4.4-5.6 [facility] Comment on above: Result Comment: NOTE ADA Guidelines Result HgbA1c Normal : less than 5.7 % Prediabetes : 5.7 % to 6.4 % Diabetes : > 6.4 % Use with caution in patients with abnormal hemoglobin variants as the half-life of red blood cells and in vivo glycation rates are affected. Performed By: #### C TIFFANY, WILSON, 1750-7, 11626-3, 2777-1, 2731-8, 89983-0 #### [facility] ([id number]) [address], [address] [place] [address] CT HEAD WO IV CONTRASTon CT HEAD [...] as reasonably achievable. Electronically signed: Eddi Tapia. [facility] Comment on above: Order Comment: In on e year, follow up ventricle size s/p RECREATION COUNSELOR shunt Follow-Upon 03-16-2024 Follow-Up [id number] Jb Goodwin Y 1945 F Date Provider Department Center 03/16/2024 Elina-VALE BOWSER [facility] SUR[facility] Second Fl Family History Problem Relation Age of Onset Diabetes Mother Hypertension Father Coronary artery disease Father Family Status - Relation Status Age at Mother Father Level of Service:02646 [place] OFFICE/OUTPATIENT ESTABLISHED MOD MDM 30 MIN Reason for Visit and Comments: Follow-up [[id number]] - Pt is here for a [address]/VPSS. [facility] 36on 02-28-2024 36 LVM with pt's daught er updating her on above mentioned. [facility] 36 Pt's daughter Isidoro arnett called stating that pt is currently admitted to [facility] for possible stroke. Ileana stated that pt's speech was slurred and right side of face was drooping. [facility] is needing Shunt make and model numbers prior to MRI. I am unable to locate. [facility] PET CT SKULL TO THIGHon PET [...] Acevedo MD on 02/20/2024 6:48 PM Normal [facility] 36on 02-11-2024 36 Spoke with daughter. Daughter stated that she would like to keep CT and appt times as is. No further action needed. Normal [place] 36on 02-10-2024 36 Pts daughter called in requesting if Pts appt could be moved up along with her CT to 03/06/24 due to traveling. Daughter states hse has an appt here at 2:45 Please Advise. Thank You [facility] Telephoneon 02-10-2024 Telephone [id number] Jb Goodwin 1945 F Date Provider Department Center 02/10/2024 Alexis8-PAM GROVES [facility] Second Fl Family History Problem Relation Age of Onset Diabetes Mother Hypertension Father Coronary artery disease Father Family Status - Relation Status Age at Mother Father [facility] POCT urinalysis dipstick onl yon 02-09-2024 Appearance (U) cloudy [facility] [place] External Poct Urine Bilirubin Negative [facility] [place] [facility] Urine Blood Trace [facility] [place] [facility]ct Urine Color yellow [facility] [place] [facility]ct Urine Glucose Negative [facility] [place] [facility] Urine Ketones Negative [facility] [place] [facility] Urine Leukocyte Esterase 2+ [facility] [place] [facility] Urine Nitrite Positive [facility] [place] [facility] Urine Ph 6.5 [facility] [place] [facility] Urine Protein Trace [facility] [place] External [facility]ct Urine Specific [place] 1.020 [facility] [place] External Poct Urine Urobilinogen 0.2 [facility] [address] URINE CULTUREon 02-09-2024 Bacteria identified Cx Nom [...] TOBRAMYCIN S <=1 F TRIMETH/SULFAMETHOXAZOL E S <=/[address] [facility] Comment on above: Performed By: #### 6 30-4 #### [facility] ([id number]) [address], [address] [place] [address] 36on 02-07-2024 36 LVM for pt of upcomi ng CT/VPSS and follow up with Vale Bowser CNP. Reminder letter sent to pt's home. Normal [place] ALBUMINon 01-10-2024 Albumin [Mass/Vol] 4.0 g/dL Normal 3.2-5.3 [facility] Comment on above: Performed By: #### C BC, BMP, 1750-7, 86741-5, 2777-1, 2731-8, 03045-2 #### [facility] ([id number]) [address], [address] [place] [address] BASIC METABOLIC PANLon 01-10 Anion gap [Moles/Vol] 8 mmol/L Normal 5-15 [facility] Comment on above: Performed By: #### C BC, BMP, 175-7, 90987-7, 2777-1, 2731-8, 64260-9 #### [facility] ([id number]) [address], [address] [place] [address] Calcium [Mass/Vol] 9.1 mg/dL Normal 8.5-10.5 [facility] Comment on above: Performed By: #### C BC, BMP, 175-7, 46211-7, 2777-1, 2731-8, 71338-5 #### [facility] ([id number]) [address], [address] [place] [address] Chloride [Moles/Vol] 101 mmol/L Normal 98-109 [facility] Comment on above: Performed By: #### Renita ALLEN, BMP, 1750-7, 01452-5, 7-1, 2731-8, 66356-2 #### [facility] ([id number]) [address], [address] [place] [address] CO2 [Moles/Vol] 29 mmol/L Normal 22-32 [facility] Comment on above: Performed By: #### C TIFFANY, BMP, 1750-7, 97790-1, 2776-1, 273-8, 28876-7 #### [facility] ([id number]) [address], [address] [place] [address] Creatinine [Mass/Vol] 1.46 mg/dL High 0.40-1.00 [facility] Comment on above: Result Comment: METH OD TRACEABLE TO IDMS STANDARD Performed By: #### C TIFFANY, WILSON, 1750-, 25676-1, 2776-1, 273-8, 86714-7 #### [facility] ([id number]) [address], [address] [place] [address] GFR/1.73 sq M.predicted among non-blacks MDRD (S/P/Bld) [Vol rate/Area] 37 mL/min/{1.73_m2} Low >59 [facility] Comment on above: Result Comment: Reported eGFR is based on the CKD-EPI 2020 equation that does not use a race coefficient. Performed By: #### C TIFFANY, BMP, 1750-, 33033-9, 2776-1, 273-8, 79165-4 #### [facility] ([id number]) [address], [address] [place] [address] Glucose [Mass/Vol] 300 mg/dL High 65-99 [facility] Comment on above: Performed By: #### C BC, BMP, 1750-7, 91130-9, 2777-1, 2731-8, 28687-4 #### [facility] ([id number]) [address], [address] [place] [address] Potassium [Moles/Vol] 4.4 mmol/L Normal 3.5-5.0 [facility] Comment on above: Performed By: #### C BC, BMP, 1750-7, 05550-2, 2777-1, 2731-8, 29229-8 #### [facility] ([id number]) [address], [facility] [address] [place] [address] Sodium [Moles/Vol] 138 mmol/L Normal 134-146 [facility] Comment on above: Performed By: #### Renita BC, BMP, 1750-, 56450-4, 2776-1, 2730-8, 90380-2 #### [facility] ([id number]) [address], [address] [place] [address] Urea nitrogen [Mass/Vol] 26 mg/dL Normal 5-27 [facility] Comment on above: Performed By: #### C BC, BMP, 1750-7, 03682-5, 7-1, 2731-8, 20769-1 #### [facility] ([id number]) [address], [address] [place] [address] COMPLETE BLOOD COUNTon 01-10 Erythrocyte distribution width (RBC) [Ratio] 15.2 % High 11.5-15.0 [facility] Comment on above: Performed By: #### C BC, BMP, 1750-, 92067-4, 7-1, 2731-8, 89829-2 #### [facility] ([id number]) [address], [address] [place] [address] Hematocrit (Bld) [Volume fraction] 31.6 % Low 35-47 [facility] Comment on above: Performed By: #### C BC, BMP, 1750-, 41754-0, 2776-1, 273-8, 13626-4 #### [facility] ([id number]) [address], [address] [place] [address] Hemoglobin (Bld) [Mass/Vol] 10.3 g/dL Low 11.7-15.5 [facility] Comment on above: Performed By: #### C BC, BMP, 1751-05, 55889-9, 2776-1, 273-8, 41950-4 #### [facility] ([id number]) [address], [address] [place] [address] MCH (RBC) [Entitic mass] 27.7 pg Normal 27-34 [facility] Comment on above: Performed By: #### Renita BC, BMP, 1751-05, 21970-9, 2776-, 2730-8, 15057-3 #### [facility] ([id number]) [address], [address] [place] [address] MCHC (RBC) [Mass/Vol] 32.5 g/dL Normal 32-36 [facility] Comment on above: Performed By: #### Renita BC, BMP, 1751-05, 25181-2, 2776-1, 2730-8, 86523-2 #### [facility] ([id number]) [address], [address] [place] [address] MCV (RBC) [Entitic vol] 85 fL Normal 80-100 [facility] Comment on above: Performed By: #### Renita BC, BMP, 1751-05, 70987-1, 2776-, 273-8, 63889-1 #### [facility] ([id number]) [address], [address] [place] [address] Platelet mean volume (Bld) [Entitic vol] 8.5 fL Normal 7-12 [facility] Comment on above: Performed By: #### C BC, BMP, 1750-7, 08049-7, 2777-1, 2731-8, 30717-2 #### [facility] ([id number]) [address], [address] [place] [address] Platelets (Bld) [#/Vol] 231 10*3/uL Normal 150-450 [facility] Comment on above: Performed By: #### C BC, BMP, 1750-7, 37004-9, 2777-1, 2731-8, 57455-9 #### [facility] ([id number]) [address], [facility] [address] [place] [address] RBC COUNT 3.70 X10E12/L Low 3.80-5.20 [facility] Comment on above: Performed By: #### Renita BC, BMP, 1750-7, 75665-4, 7-1, 2731-8, 90806-2 #### [facility] ([id number]) [address], [address] [place] [address] WBC (Bld) [#/Vol] 4.8 10*3/uL Normal 4.0-11.0 [facility] Comment on above: Performed By: #### Renita BC, BMP, 1750-7, 42657-7, 7-1, 2731-8, 74427-0 #### [facility] ([id number]) [address], [address] [place] [address] HGB A1C (GLYCO-HGB)on 2023 Glucose [Mass/Vol] 203 mg/dL Normal [facility] Comment on above: Performed By: #### Renita BC, BMP, 1750-7, 22060-1, 2777-1, 2731-8, 86380-4 #### [facility] ([id number]) [address], [address] [place] [address] HbA1c (Bld) [Mass fraction] 8.7 % High 4.4-5.6 [facility] Comment on above: Result Comment: NOTE ADA Guidelines Result HgbA1c Normal : less than 5.7 % Prediabetes : 5.7 % to 6.4 % Diabetes : > 6.4 % Use with caution in patients with abnormal hemoglobin variants as the half-life of red blood cells and in vivo glycation rates are affected. Performed By: #### C TIFFANY, BMP, 1750-7, 99761-8, 2777-1, 2731-8, 37285-1 #### [facility] ([id number]) [address] [facility] [place] [address] MAGNESIUMon 01-10-2024 Magnesium [Mass/Vol] 1.9 mg/dL Normal 1.8-2.6 [facility] Comment on above: Performed By: #### C TIFFANY, BMP, 1751-05, 00881-2, 2777-1, 2731-8, 02448-9 #### [facility] ([id number]) [address] [facility], [address] [place] [address] PHOSPHORUSon 01-10-2024 Phosphate [Mass/Vol] 3.8 mg/dL Normal 2.4-4.9 [facility] Comment on above: Performed By: #### C TIFFANY, BMP, 1751-05, 63332-2, 2777-1, 2731-8, 09568-2 #### [facility] ([id number]) [address] [place] [address] Parathyrin.intact [Mass/Vol] on 01-10-2024 PTH INTACT 71 pg/mL Normal 12-88 [facility] Comment on above: Performed By: #### Renita BC, BMP, 1750-7, 83076-4, 2777-1, 2731-8, 68159-1 #### [facility] ([id number]) [address] [place] [address], [address] [place] [address] Vitamin D+Metabolites [Mass/ Vol]on 01-10-2024 VITAMIN D 25 HYD TOT 38.9 ng/mL Normal 30-100 [facility] Comment on above: Result Comment: Vitamin D status 25 [place] Vitamin D Deficiency <20 ng/mL Insufficiency 20-29 ng/mL Sufficiency 30-100 ng/mL Toxicity >100 ng/mL NOTE: A pediatric reference range has not been established by the websphere consultant of this kit. The [place] [employer] recommends a Vitamin D level of = or >20ng/mL in infants and children. Performed By: #### C , [facility], 1751-7, 02851-4, 2777-1, 2731-8, 39804-4 #### [facility] ([id number]) [address] [place] [address], [address] [place] [address] Follow-Upon 03-23-2023 Follow-Up [id number] Jb Goodwin Y 1945 F Date Provider Department Center 03/23/2023 VALE TAMAYO [facility] SUR[facility] Second Fl Family History Problem Relation Age of Onset Diabetes Mother Hypertension Father Coronary artery disease Father Family Status - Relation Status Age at Mother Father Level of Service:02578 [place] OFFICE/OUTPATIENT ESTABLISHED LOW MDM 20-29 MIN Reason for Visit and Comments: Follow-up [294111] - shunt check s/p mri; Patient has been off balance. Normal [place] CT CARDIAC W C [facility] MORP CARD ONLYon 01-18-2023 CT CARDIAC W C [facility] MORP CARD ONLY EXAMINATION: CT [...] valve measurements were analyzed and provided by [employer] and are reported separately to the cardiology department. 3. Severe triple-vessel coronary artery calcifications. 4. Small sliding hiatal hernia. Interpreted by: Brennan Parra MD Signed by: Brennan Parra MD 01/18/23 Final result Normal [facility] CTA CHEST ABDOMEN PELVIS W C [facility] 01-15-2023 CTA CHEST ABDOMEN PELVIS W [...] with a couple of ill-defined sclerotic foci. RECREATION COUNSELOR shunt tubing in the right neck and [...] adenopathy. Very small fat containing umbilical hernia. RECREATION COUNSELOR shunt tubing enters the abdomen in the [...] pelvis which may be related to the RECREATION COUNSELOR shunt catheter. There is a cystic left [...] for planned (more content not included)... Normal [facility] No acute abnormality identified on CTA [...] recommended. 5 mm subpleural right lung nodule. RECREATION COUNSELOR shunt noted. Small hiatal hernia. The findings [...] Findings Committee. J Am Janel Radiol 2010;7:754-773 [facility] RIS CONSOLIDATED EXAMINATION: CTA [...] with a couple of ill-defined sclerotic foci. RECREATION COUNSELOR shunt tubing in the right neck and [...] adenopathy. Very small fat containing umbilical hernia. RECREATION COUNSELOR shunt tubing enters the abdomen in the [...] pelvis which may be related to the RECREATION COUNSELOR shunt catheter. There is a cystic left [...] in the left flank and gluteal regions. [facility] Tato Whaley MD - 01/15/2023 EXAMINATION: CTA [...] with a couple of ill-defined sclerotic foci. RECREATION COUNSELOR shunt tubing in the right neck and [...] adenopathy. Very small fat containing umbilical hernia. RECREATION COUNSELOR shunt tubing enters the abdomen in the [...] pelvis which may be related to the RECREATION COUNSELOR shunt catheter. There is a cystic left [...] and gluteal regions. (more content not included)... [employer] Work Phone: CTA CHEST ABDOMEN PELVIS W C ONTRASTOrdered By: Tato Syed on 01-15-2023 [employer] Work Phone: PULMONARY FUNCTIONon [address] [phone] PULMONARY FUNCTION PATIENT NAME: CUCA GOODWIN : 1945 MED REC NO: [id number] ROOM: ACCOUNT NO: [id number] ADMIT DATE: 01/13/2023 PROVIDER: Whit Maloney DATE [...] correlation is recommended. WHIT MALONEY [id number] Doc#: [id number] CC: Normal [facility] CTA CHEST ABDOMEN PELVIS W C ONTRASTon 01-13-2023 Radiology Study observation (narrative) [facility] [employer] Work Phone: POC Glucose Fingerstickon Glucose [Mass/Vol] 104 mg/dL 65 - 105 mg/dL [facility] [employer] Basic Metabolic Panelon 11-16 Anion gap [Moles/Vol] 11 mmol/L 9 - 17 mmol/L [facility] [employer] Calcium [Mass/Vol] 9.0 mg/dL 8.6 - 10. 4 mg/dL [facility] [employer] Chloride [Moles/Vol] 105 mmol/L 98 - 107 mmol/L [facility] [employer] CO2 [Moles/Vol] 20 mmol/L 20 - 31 mmol/L [facility] Creatinine [Mass/Vol] 1.04 mg/dL High 0.50 - 0.90 mg/dL [facility] GFR/1.73 sq M.predicted MDRD (S/P/Bld) [Vol rate/Area] 56 mL/min/{1.73_m2} Low - PINF [facility] Comment on above: These results are not [...] 131 mg/dL High 70 - 99 mg/dL [facility] Interpretation and review of laboratory results Abnormal [facility] Potassium [Moles/Vol] 4.3 mmol/L 3.7 - 5.3 mmol/L [facility] Sodium [Moles/Vol] 136 mmol/L 135 - 144 mmol/L [facility] Urea nitrogen (BldV) [Mass/Vol] 17 mg/dL 8 - 23 mg/dL [facility] Basic Metabolic Profon 12-10 Anion gap [Moles/Vol] 11 mmol/L Normal 9-17 [facility] Comment on above: Performed By: #### H H, BMPX #### [facility] [address] [id number] Slip Laster: Luis Solis MD Calcium [Mass/Vol] 9.0 mg/dL Normal 8.6-10.4 [facility] Comment on above: Performed By: #### H H, BMPX #### [facility] [address] [place], [place] [id number] Slip Laster: Luis Solis MD Chloride [Moles/Vol] 105 mmol/L Normal 98-107 [facility] Comment on above: Performed By: #### H H, BMPX #### [facility] [address] [place] [address] Slip Laster: Luis Solis MD CO2 [Moles/Vol] 20 mmol/L Normal 20-31 [facility] Comment on above: Performed By: #### H H, BMPX #### [facility] [address] [place] [address] Slip Laster: Luis Solis MD Creatinine [Mass/Vol] 1.04 mg/dL High 0.50-0.90 [facility] Comment on above: Performed By: #### H H, BMPX #### [facility] [address] [place] [address] Slip Laster: Luis Solis MD GFR/1.73 sq M.predicted among non-blacks MDRD (S/P/Bld) [Vol rate/Area] 56 mL/min/{1.73_m2} Low >60 [facility] Comment on above: Result Comment: These [...] Performed By: #### H H, BMPX #### [facility] [address] [place] [address] Slip Laster: Luis Solis MD Glucose [Mass/Vol] 131 mg/dL High 70-99 [facility] Comment on above: Performed By: #### H H, BMPX #### [facility] [address] [place] [address] Slip Laster: Luis Solis MD Potassium [Moles/Vol] 4.3 mmol/L Normal 3.7-5.3 [facility] Comment on above: Performed By: #### H H, BMPX #### [facility] [address] [place] [address] Slip Laster: Luis Solis MD Sodium [Moles/Vol] 136 mmol/L Normal 135-144 [facility] Comment on above: Performed By: #### H H, BMPX #### [facility] [address] [place], [place] [id number] Slip Laster: Luis Solis MD Urea nitrogen [Mass/Vol] 17 mg/dL Normal 8-23 [facility] Comment on above: Performed By: #### H H, BMPX #### [facility] [address] [place] [address] Slip Laster: Luis Solis MD Hemoglobin and Hematocriton 12-10-2022 Hematocrit (Bld) [Volume fraction] 25.5 % Low 36.3 - 47.1 % [facility] Hemoglobin (Bld) [Mass/Vol] 7.9 g/dL Low 11.9 - 15.1 g/dL [facility] Interpretation and review of laboratory results Abnormal [facility] Hgb/Hcton 12-10-2022 Hematocrit (Bld) [Volume fraction] 25.5 % Low 36.3-47.1 [facility] Comment on above: Performed By: #### H H, BMPX #### [facility] [employer] [address] [place] [address] [id number] Slip Laster: Luis Solis MD Hemoglobin (Bld) [Mass/Vol] 7.9 g/dL Low 11.9-15.1 [facility] Comment on above: Performed By: #### H H, BMPX #### [facility] [address] [place] [address] Slip Laster: Luis Solis MD Laboratory - Blood bankon Blood product type Nom (BPU) Leukocyte Reduced Red Cell [facility] No Panel Informationon 12-10 Blood Bank ISBT Product Blood Type 9500 [facility] Blood Bank Unit Type and Rh Negative [facility] Crossmatch Result [facility] Dispense Status TRANSFUSED [facility] Transfusion Status OK TO TRANSFUSE B ON [facility] Unit Divison 0 [facility] POC Glucose Fingerstickon Glucose [Mass/Vol] 105 mg/dL 65 - 105 mg/dL [facility] Glucose [Mass/Vol] 119 mg/dL High 65 - 105 mg/dL [facility] Interpretation and review of laboratory results Abnormal [facility] Glucose [Mass/Vol] 159 mg/dL High 65 - 105 mg/dL [facility] Interpretation and review of laboratory results Abnormal [facility] Glucose [Mass/Vol] 70 mg/dL 65 - 105 mg/dL [facility] Glucose [Mass/Vol] 41 mg/dL Low 65 - 105 mg/dL [facility] Comment on above: Critical Noted Interpretation and review of laboratory results Abnormal [facility] TYPE AND SCREENon 12-10-2022 ABO/Rh Negative [facility] Arm Band Number [id number] [facility] Blood Bank Blood Product Expiration Date [facility] Blood Bank Blood Product Expiration Date [id number] [facility] Blood Bank Blood Product Expiration Date [id number] [facility] Blood product unit ID (Dose) [#] [id number] [facility] Blood product unit ID (Dose) [#] [id number] [facility] Blood product unit ID (Dose) [#] [id number] [facility] Expiration Date 12/10/2022,2359 [facility] Product Code Blood Bank [id number] [facility] Product Code Blood Bank [id number] [facility] Product Code Blood Bank [id number] [facility] Unit Issue Date/Time [id number] [facility] Unit Issue Date/Time [id number] [facility] Unit Issue Date/Time [id number] [facility] Basic Metab w/rfx MGon 12-09 Anion gap [Moles/Vol] 10 mmol/L Normal 9-17 [facility] Comment on above: Performed By: #### H H, BMPX #### [facility] [address] [place] [address] Slip Laster: Luis Solis MD Calcium [Mass/Vol] 8.6 mg/dL Normal 8.6-10.4 [facility] Comment on above: Performed By: #### H H, BMPX #### [facility] [facility] [address] [place] [address] 24283 Slip Laster: Luis Solis MD Chloride [Moles/Vol] 106 mmol/L Normal 98-107 [facility] Comment on above: Performed By: #### H H, BMPX #### [facility] [address] [place] [address] 93683 Slip Laster: Luis Solis MD CO2 [Moles/Vol] 21 mmol/L Normal 20-31 [facility] Comment on above: Performed By: #### H H, BMPX #### [facility] [address] [place] [address] 96207 Slip Laster: Luis Solis MD Creatinine [Mass/Vol] 1.33 mg/dL High 0.50-0.90 [facility] Comment on above: Performed By: #### H H, BMPX #### [facility] [address] [place] [address] 79742 Slip Laster: Luis Solis MD GFR/1.73 sq M.predicted among non-blacks MDRD (S/P/Bld) [Vol rate/Area] 41 mL/min/{1.73_m2} Low >60 [facility] Comment on above: Result Comment: Effective [...] Performed By: #### H H, BMPX #### [facility] [address] [place] [address] 87425 Slip Laster: Luis Solis MD Glucose [Mass/Vol] 102 mg/dL High 70-99 [facility] Comment on above: Performed By: #### H H, BMPX #### [facility] [address] [place] [address] 70782 Slip Laster: Luis Solis MD Potassium [Moles/Vol] 4.1 mmol/L Normal 3.7-5.3 [facility] Comment on above: Performed By: #### H H, BMPX #### [facility] [address] [place] [address] 46078 Slip Laster: Luis Solis MD Sodium [Moles/Vol] 137 mmol/L Normal 135-144 [facility] Comment on above: Performed By: #### H H, BMPX #### [facility] [address] [place] [address] 54051 Slip Laster: Luis Solis MD Urea nitrogen [Mass/Vol] 19 mg/dL Normal 8-23 [facility] Comment on above: Performed By: #### H H, BMPX #### [facility] [address] [place] [address] 31678 Slip Laster: Luis Solis MD Basic Metabolic Panel w/ Ref pierre to MGon 12-09-2022 Anion gap [Moles/Vol] 10 mmol/L 9 - 17 mmol/L [facility] Calcium [Mass/Vol] 8.6 mg/dL 8.6 - 10. 4 mg/dL [facility] Chloride [Moles/Vol] 106 mmol/L 98 - 107 mmol/L [facility] CO2 [Moles/Vol] 21 mmol/L 20 - 31 mmol/L [facility] Creatinine [Mass/Vol] 1.33 mg/dL High 0.50 - 0.90 mg/dL [facility] GFR/1.73 sq M.predicted MDRD (S/P/Bld) [Vol rate/Area] 41 mL/min/{1.73_m2} Low - PINF [facility] Comment on above: Effective Aug 17, 2022 [...] 102 mg/dL High 70 - 99 mg/dL [facility] Interpretation and review of laboratory results Abnormal [facility] Potassium [Moles/Vol] 4.1 mmol/L 3.7 - 5.3 mmol/L [facility] Sodium [Moles/Vol] 137 mmol/L 135 - 144 mmol/L [facility] Urea nitrogen (BldV) [Mass/Vol] 19 mg/dL 8 - 23 mg/dL [facility] Hemoglobin and Hematocriton 12-09-2022 Hematocrit (Bld) [Volume fraction] 25.6 % Low 36.3 - 47.1 % [facility] Hemoglobin (Bld) [Mass/Vol] 8.0 g/dL Low 11.9 - 15.1 g/dL [facility] Interpretation and review of laboratory results Abnormal [facility] Hematocrit (Bld) [Volume fraction] 23.5 % Low 36.3 - 47.1 % [facility] Hemoglobin (Bld) [Mass/Vol] 7.1 g/dL Low 11.9 - 15.1 g/dL [facility] Interpretation and review of laboratory results Abnormal [facility] SEC[facility] Hgb/Hcton 12-09-2022 Hematocrit (Bld) [Volume fraction] 25.6 % Low 36.3-47.1 [facility] Comment on above: Performed By: #### H H, BMPX #### [facility] [address] [place], [place] [phone] Slip Laster: Luis Solis MD Hemoglobin (Bld) [Mass/Vol] 8.0 g/dL Low 11.9-15.1 [facility] Comment on above: Performed By: #### H H, BMPX #### [facility] [address] [place] [address] [phone] Slip Laster: Luis Solis MD Hematocrit (Bld) [Volume fraction] 23.5 % Low 36.3-47.1 [facility] Comment on above: Performed By: #### H H, BMPX #### [facility] [address] [place] [address] [phone] Slip Laster: Luis Solis MD Hemoglobin (Bld) [Mass/Vol] 7.1 g/dL Low 11.9-15.1 [facility] Comment on above: Performed By: #### H H, BMPX #### [facility] [address] [place] [address] [phone] Slip Laster: Luis Solis MD POC Glucose Fingerstickon Glucose [Mass/Vol] 143 mg/dL High 65 - 105 mg/dL [facility] Interpretation and review of laboratory results Abnormal [facility] Glucose [Mass/Vol] 96 mg/dL 65 - 105 mg/dL [facility] [employer] Glucose [Mass/Vol] 114 mg/dL High 65 - 105 mg/dL [facility]ITAL[facility]len[facility] Interpretation and review of laboratory results Abnormal [facility] [employer] Glucose [Mass/Vol] 111 mg/dL High 65 - 105 mg/dL [facility] Interpretation and review of laboratory results Abnormal [facility] Type + Screenon 12-09-2022 Type + Screen Sample Expiration 12/10/2022,2359 Arm Band Number [id number] ABO/Rh(D) O NEGATIVE Antibody Screen NEGATIVE Unit Number [id number] Blood Component Type Leukocyte Reduced Red Cell Unit Division 00 Status of Unit TRANSFUSED Transfusion Status OK TO TRANSFUSE Crossmatch Result COMPATIBLE Unit Number [id number] Blood Component Type Leukocyte Reduced Red Cell Unit Division 00 Status of Unit TRANSFUSED Transfusion Status OK TO TRANSFUSE Crossmatch Result COMPATIBLE Unit Number [id number] Blood Component Type Leukocyte Reduced Red Cell Unit Division 00 Status of Unit TRANSFUSED Transfusion Status OK TO TRANSFUSE Crossmatch Result COMPATIBLE Normal [facility] Comment on above: Performed By: #### Jeff DALE BMPX #### [address] [phone] Slip Laster: Luis Solis MD Basic Metab w/rfx MGon 12-08 Anion gap [Moles/Vol] 9 mmol/L Normal 9-17 [facility] Comment on above: Performed By: #### Jeff DALE BMPX #### [facility] [place] [address] Slip Laster: Luis Solis MD Calcium [Mass/Vol] 8.6 mg/dL Normal 8.6-10.4 [facility] Comment on above: Performed By: #### R CHITO, BMPX #### [facility] [address] [place] [address] 75695 Slip Laster: Luis Solis MD Chloride [Moles/Vol] 106 mmol/L Normal 98-107 [facility] Comment on above: Performed By: #### R CHITO, BMPX #### [facility] [address] [place] [address] 60141 Slip Laster: Luis Solis MD CO2 [Moles/Vol] 24 mmol/L Normal 20-31 [facility] Comment on above: Performed By: #### R CHITO, BMPX #### [facility] [place] [address] 44679 Slip Laster: Luis Solis MD Creatinine [Mass/Vol] 1.33 mg/dL High 0.50-0.90 [facility] Comment on above: Performed By: #### R CHITO, BMPX #### [address] [address] Slip Laster: Luis Solis MD GFR/1.73 sq M.predicted among non-blacks MDRD (S/P/Bld) [Vol rate/Area] 41 mL/min/{1.73_m2} Low >60 [facility] Comment on above: Result Comment: Effective [...] Performed By: #### Jeff DALE BMPX #### [address] [address] Slip Laster: Luis Solis MD Glucose [Mass/Vol] 160 mg/dL High 70-99 [facility] Comment on above: Performed By: #### R CHITO BMPX #### [facility] [place] [address] 23087 Slip Laster: Luis Solis MD Potassium [Moles/Vol] 4.4 mmol/L Normal 3.7-5.3 [facility] Comment on above: Performed By: #### R CHITO, BMPX #### [facility] [address] [place] [address] 11996 Slip Laster: Luis Solis MD Sodium [Moles/Vol] 139 mmol/L Normal 135-144 [facility] Comment on above: Performed By: #### R EJEC, BMPX #### [facility] [address] [place], [place] [phone] Slip Laster: Luis Solis MD Urea nitrogen [Mass/Vol] 21 mg/dL Normal 8-23 [facility] Comment on above: Performed By: #### R EJEC, BMPX #### [facility] [address] [place], [place] [phone] Slip Laster: Luis Solis MD Basic Metabolic Panelon - Anion gap [Moles/Vol] 7 mmol/L Low 9 - 17 mmol/L [facility] Calcium [Mass/Vol] 8.5 mg/dL Low 8.6 - 10. 4 mg/dL [facility] Chloride [Moles/Vol] 110 mmol/L High 98 - 107 mmol/L [facility] CO2 [Moles/Vol] 25 mmol/L 20 - 31 mmol/L [facility] Creatinine [Mass/Vol] 1.43 mg/dL High 0.50 - 0.90 mg/dL [facility] GFR/1.73 sq M.predicted MDRD (S/P/Bld) [Vol rate/Area] 38 mL/min/{1.73_m2} Low - PINF [facility] Comment on above: Effective Aug 17, 2022 [...] 124 mg/dL High 70 - 99 mg/dL [facility] Interpretation and review of laboratory results Abnormal [facility] Potassium [Moles/Vol] 4.7 mmol/L 3.7 - 5.3 mmol/L [facility] Sodium [Moles/Vol] 142 mmol/L 135 - 144 mmol/L [facility] Urea nitrogen (BldV) [Mass/Vol] 23 mg/dL 8 - 23 mg/dL [facility] Basic Metabolic Panel w/ Ref pierre to MGon 12-08-2022 Anion gap [Moles/Vol] 9 mmol/L 9 - 17 mmol/L [facility] Calcium [Mass/Vol] 8.6 mg/dL 8.6 - 10. 4 mg/dL [facility] Chloride [Moles/Vol] 106 mmol/L 98 - 107 mmol/L [facility] CO2 [Moles/Vol] 24 mmol/L 20 - 31 mmol/L [facility] Creatinine [Mass/Vol] 1.33 mg/dL High 0.50 - 0.90 mg/dL [facility] GFR/1.73 sq M.predicted MDRD (S/P/Bld) [Vol rate/Area] 41 mL/min/{1.73_m2} Low - PINF [facility] Comment on above: Effective Aug 17, 2022 [...] 160 mg/dL High 70 - 99 mg/dL [facility] Interpretation and review of laboratory results Abnormal [facility] Potassium [Moles/Vol] 4.4 mmol/L 3.7 - 5.3 mmol/L [facility] Sodium [Moles/Vol] 139 mmol/L 135 - 144 mmol/L [facility] Urea nitrogen (BldV) [Mass/Vol] 21 mg/dL 8 - 23 mg/dL [facility] Basic Metabolic Profon 12-08 Anion gap [Moles/Vol] 7 mmol/L Low 9-17 [facility] Comment on above: Performed By: #### B MP, CBC #### [address] [address] Slip Laster: Luis Solis MD Calcium [Mass/Vol] 8.5 mg/dL Low 8.6-10.4 [facility] Comment on above: Performed By: #### B MP, CBC #### [address] [address] Slip Laster: Luis Solis MD Chloride [Moles/Vol] 110 mmol/L High 98-107 [facility] Comment on above: Performed By: #### B MP, CBC #### [address] [address] Slip Laster: Luis Solis MD CO2 [Moles/Vol] 25 mmol/L Normal 20-31 [facility] Comment on above: Performed By: #### B MP, CBC #### [facility] [place] [address] 68382 Slip Laster: Luis Solis MD Creatinine [Mass/Vol] 1.43 mg/dL High 0.50-0.90 [facility] Comment on above: Performed By: #### B MP, CBC #### [address] [address] Slip Laster: Luis Solis MD GFR/1.73 sq M.predicted among non-blacks MDRD (S/P/Bld) [Vol rate/Area] 38 mL/min/{1.73_m2} Low >60 [facility] Comment on above: Result Comment: Effective [...] Performed By: #### B MP, CBC #### [address] [place] [address] Slip Laster: Luis Solis MD Glucose [Mass/Vol] 124 mg/dL High 70-99 [facility] Comment on above: Performed By: #### B MP, CBC #### [facility] [address] [place] [address] 42810 Slip Laster: Luis Solis MD Potassium [Moles/Vol] 4.7 mmol/L Normal 3.7-5.3 [facility] Comment on above: Performed By: #### B MP, CBC #### [facility] [address] [place] [address] 63052 Slip Laster: Luis Solis MD Sodium [Moles/Vol] 142 mmol/L Normal 135-144 [facility] Comment on above: Performed By: #### B MP, CBC #### [facility] [place] [address] 82372 Slip Laster: Luis Solis MD Urea nitrogen [Mass/Vol] 23 mg/dL Normal 8-23 [facility] Comment on above: Performed By: #### B MP, CBC #### [facility] [address] [place] [address] 80173 Slip Laster: Luis Slois MD CBCon 12-08-2022 Erythrocyte distribution width (RBC) [Ratio] 17.8 % High 11.8-14.4 [facility] Comment on above: Performed By: #### B MP, CBC #### [facility] [address] [place] [address] 50067 Slip Laster: Luis Solis MD Hematocrit (Bld) [Volume fraction] 22.0 % Low 36.3-47.1 [facility] Comment on above: Performed By: #### B MP, CBC #### [facility] [address] [place] [address] 49886 Slip Laster: Luis Solis MD Hemoglobin (Bld) [Mass/Vol] 6.6 g/dL Critically low 11.9-15.1 [facility] Comment on above: Performed By: #### B MP, CBC #### [address] [address] Slip Laster: Luis Solis MD MCH (RBC) [Entitic mass] 27.5 pg Normal 25.2-33.5 [facility] Comment on above: Performed By: #### B MP, CBC #### [address] [address] Slip Laster: Luis Solis MD MCHC (RBC) [Mass/Vol] 30.0 g/dL Normal 28.4-34.8 [facility] Comment on above: Performed By: #### B MP, CBC #### [address] [address] Slip Laster: Luis Solis MD MCV (RBC) [Entitic vol] 91.7 fL Normal 82.6-102.9 [facility] Comment on above: Performed By: #### B MP, CBC #### [address] [address] Slip Laster: Luis Solis MD NRBC Automated 0.0 per 100 WBC Normal 0.0 [facility] Comment on above: Performed By: #### B MP, CBC #### [address] [address] Slip Laster: Luis Solis MD Platelet mean volume (Bld) [Entitic vol] 10.3 fL Normal 8.1-13.5 [facility] Comment on above: Performed By: #### B MP, CBC #### [address] [address] Slip Laster: Luis Solis MD Platelets (Bld) [#/Vol] 250 10*3/uL Normal 138-453 [facility] Comment on above: Performed By: #### B MP, CBC #### [facility] [address] [place], [place] [phone] Slip Laster: Luis Solis MD RBC (Bld) [#/Vol] 2.40 10*6/uL Low 3.95-5.11 [facility] Comment on above: Performed By: #### B MP, CBC #### [facility] [address] [place], [place] [phone] Slip Laster: Luis Solis MD WBC (Bld) [#/Vol] 9.2 10*3/uL Normal 3.5-11.3 [facility] Comment on above: Performed By: #### B MP, CBC #### [facility] [address] [place], [place] [phone] Slip Laster: Luis Solis MD Hematocrit (Bld) [Volume fraction] 22.0 % Low 36.3 - 47.1 % [facility] Hemoglobin (Bld) [Mass/Vol] 6.6 g/dL Critically low 11.9 - 15.1 g/dL [facility] Interpretation and review of laboratory results Abnormal [facility] MCH (RBC) [Entitic mass] 27.5 pg 25.2 - 33.5 pg [facility] MCHC (RBC) [Mass/Vol] 30.0 g/dL 28.4 - 34.8 g/dL [facility] MCV (RBC) [Entitic vol] 91.7 fL 82.6 - 102.9 fL [facility] NRBC Automated 0.0 0.0 per 100 WBC [facility] [employer] Platelet distribution width (Bld) [Ratio] 17.8 % High 11.8 - 14.4 % [facility] Platelet mean volume (Bld) [Entitic vol] 10.3 fL 8.1 - 13.5 fL [facility] Platelets (Bld) [#/Vol] 250 10*3/uL [facility] RBC (Bld) [#/Vol] 2.40 10*6/uL Low 3.95 - 5.1 1 m/uL [facility] WBC (Bld) [#/Vol] 9.2 10*3/uL [facility] Hemoglobin and Hematocriton 12-08-2022 Hematocrit (Bld) [Volume fraction] 24.4 % Low 36.3 - 47.1 % [facility] Hemoglobin (Bld) [Mass/Vol] 7.4 g/dL Low 11.9 - 15.1 g/dL [facility] Interpretation and review of laboratory results Abnormal [facility] Hematocrit (Bld) [Volume fraction] 24.6 % Low 36.3 - 47.1 % [facility] Hemoglobin (Bld) [Mass/Vol] 7.7 g/dL Low 11.9 - 15.1 g/dL [facility] Interpretation and review of laboratory results Abnormal [facility] Hematocrit (Bld) [Volume fraction] 22.9 % Low 36.3 - 47.1 % [facility] Hemoglobin (Bld) [Mass/Vol] 7.6 g/dL Low 11.9 - 15.1 g/dL [facility] Interpretation and review of laboratory results Abnormal [facility] Hematocrit (Bld) [Volume fraction] 21.9 % Low 36.3 - 47.1 % [facility] Hemoglobin (Bld) [Mass/Vol] 6.5 g/dL Critically low 11.9 - 15.1 g/dL [facility] Interpretation and review of laboratory results Abnormal [facility] Hgb/Hcton 12-08-2022 Hematocrit (Bld) [Volume fraction] 24.4 % Low 36.3-47.1 [facility] Comment on above: Performed By: #### R CHITO, BMPX #### [facility] [place] [address] Slip Laster: Luis Solis MD Hemoglobin (Bld) [Mass/Vol] 7.4 g/dL Low 11.9-15.1 [facility] Comment on above: Performed By: #### R EJEC, BMPX #### [facility] [address] [place] [address]687 Slip Laster: Luis Solis MD Hematocrit (Bld) [Volume fraction] 24.6 % Low 36.3-47.1 [facility] Comment on above: Performed By: #### R EJEC, BMPX #### [facility] [place] [address] 9[address] Slip Laster: Luis Solis MD Hemoglobin (Bld) [Mass/Vol] 7.7 g/dL Low 11.9-15.1 [facility] Comment on above: Performed By: #### R EJEC, BMPX #### [facility] [place] [address] 79587 Slip Laster: Luis Solis MD Hematocrit (Bld) [Volume fraction] 22.9 % Low 36.3-47.1 [facility] Comment on above: Performed By: #### R CHITO, BMPX #### [facility] [place] [address] 32376 Slip Laster: Luis Solis MD Hemoglobin (Bld) [Mass/Vol] 7.6 g/dL Low 11.9-15.1 [facility] Comment on above: Performed By: #### R EJEC, BMPX #### [facility] [address] [place] [address] 05965 Slip Laster: Luis Solis MD Hematocrit (Bld) [Volume fraction] 21.9 % Low 36.3-47.1 [facility] Comment on above: Performed By: #### H H #### [facility] [place] [address] 78333 Slip Laster: Luis Solis MD Hemoglobin (Bld) [Mass/Vol] 6.5 g/dL Critically low 11.9-15.1 [facility] Comment on above: Performed By: #### H H #### [facility] [address] [place] [address] Slip Laster: Luis Solis MD Hematocrit (Bld) [Volume fraction] 23.7 % Low 36.3-47.1 [facility] Comment on above: Performed By: #### R ZAINABEC, BMPX #### [facility] [address] [place], [place] [phone] Slip Laster: Luis Solis MD Hemoglobin (Bld) [Mass/Vol] 7.6 g/dL Low 11.9-15.1 [facility] Comment on above: Performed By: #### R ZAINABEC, BMPX #### [facility] [place], [place] [phone] Slip Laster: Luis Solis MD POC Glucose Fingerstickon Glucose [Mass/Vol] 129 mg/dL High 65 - 105 mg/dL [facility] Interpretation and review of laboratory results Abnormal [facility] Glucose [Mass/Vol] 138 mg/dL High 65 - 105 mg/dL [facility] Interpretation and review of laboratory results Abnormal [facility] Glucose [Mass/Vol] 164 mg/dL High 65 - 105 mg/dL [facility] Interpretation and review of laboratory results Abnormal [facility] SPECIMEN REJECTIONon 023 Ordered Test [facility] Reason for Rejection Unable to perform testing: Specimen clotted. [facility] Specimen source Nom (Unsp spec) .BLOOD [facility] Specimen Rejectionon 023 Reason for rejection Unable to perform testing: Specimen clotted. Normal [facility] Comment on above: Performed By: #### R EJEC, BMPX #### [facility] [address] [place], [place] [phone] Slip Laster: Luis Solis MD Source of sample .BLOOD Normal [facility] Comment on above: Performed By: #### R CHITO BMPX #### [facility] [address] [place], [place] [phone] Slip Laster: Luis Solis MD Test ordered [facility] Comment on above: Performed By: #### R CHITO BMPX #### [facility] [address] [place], [place] [phone] Slip Laster: Luis Solis MD Activated clotting timeon Activated Clotting Time 262 High [facility] Interpretation and review of laboratory results Abnormal [facility] CHLORIDE (POC)on 12-07-2022 Chloride [Moles/Vol] 107 mmol/L 98 - 107 mmol/L [facility] Catheterization and angiogra phy procedure details panelon 12-07-2022 [facility] Work Phone: Creatinine W/GFR Point of Ca reon 12-07-2022 Creatinine [Mass/Vol] 1.35 mg/dL High 0.51 - 1.19 mg/dL [facility] eGFR, POC 41 mL/min/1.73m 2 [facility] Comment on above: Effective Aug 17, 2022 [...] 23.7 % Low 36.3 - 47.1 % [facility] Hemoglobin (Bld) [Mass/Vol] 7.6 g/dL Low 11.9 - 15.1 g/dL [facility] Interpretation and review of laboratory results Abnormal [facility] Hematocrit (Bld) [Volume fraction] 24.9 % Low 36.3 - 47.1 % [facility] Hemoglobin (Bld) [Mass/Vol] 7.2 g/dL Low 11.9 - 15.1 g/dL [facility] Interpretation and review of laboratory results Abnormal [facility] Hemoglobin and hematocrit, b loodon 12-07-2022 Hematocrit (Bld) [Volume fraction] 20 % Low 36 - 46 % [facility] Hemoglobin (Bld) [Mass/Vol] 6.9 g/dL Critically low 12.0 - 16.0 g/dL [facility] Interpretation and review of laboratory results Abnormal [facility] Hematocrit (Bld) [Volume fraction] 30 % Low 36 - 46 % [facility] Hemoglobin (Bld) [Mass/Vol] 10.1 g/dL Low 12.0 - 16.0 g/dL [facility] Hgb/Hcton 12-07-2022 Hematocrit (Bld) [Volume fraction] 24.9 % Low 36.3-47.1 [facility] Comment on above: Performed By: #### R ZAINABEC, BMPX #### [facility] [address] [place], [place] [phone] Slip Laster: Luis Solis MD Hemoglobin (Bld) [Mass/Vol] 7.2 g/dL Low 11.9-15.1 [facility] Comment on above: Performed By: #### R EJEC, BMPX #### [facility] [address] [place], [place] [phone] Slip Laster: Luis Solis MD No Panel Informationon 12-07 Interpretation and review of laboratory results Abnormal [facility] POC Glucose Fingerstickon Glucose [Mass/Vol] 197 mg/dL High 65 - 105 mg/dL [facility] Interpretation and review of laboratory results Abnormal [facility] Glucose [Mass/Vol] 101 mg/dL 65 - 105 mg/dL [facility] POCT Glucoseon 12-07-2022 Glucose [Mass/Vol] 83 mg/dL 74 - 100 mg/dL [facility] POCT urea (BUN)on 12-07-2022 Urea nitrogen [Mass/Vol] 25 mg/dL 8 - 26 mg/dL [facility] POTASSIUM (POC)on 12-07-2022 Potassium [Moles/Vol] 4.2 mmol/L 3.5 - 4.5 mmol/L [facility] SODIUM (POC)on 12-07-2022 Sodium [Moles/Vol] 142 mmol/L 138 - 146 mmol/L [facility] VL DUP LOWER EXTREMITY ARTER IES RIGHTon 12-07-2022 Darnell Monique MD - 12/07/2022 [facility] Vascular Lower Extremities Arterial Duplex Procedure Patient Name CHRISTA Date of Study 12/07/2022 [facility] Date of 1945 Gender Female Age 77 year(s) Race Room Number 0501 Height: 65 inch, 165.1 cm Corporate ID # [id number] Weight: 208 pounds, 94.3 kg Patient BSA: 2.01 m^2 BMI: 34.61 kg/m^2 MR # [id number] [employer] Whit Gan RVT Interpreting Physician Darnell Monique Referring Referring Physician SEBASTIAN MARTINEZ MD Nurse Practitioner Procedure Type of Study: Extremities Arteries: Lower Extremities Arterial Duplex, Arterial Scan Lower Right. Indications for Study:Groin pain s/p cardiac cath and Hematoma s/p cardiac cath. Patient Status:Out Patient. Technical Quality:Adequate visualization. Conclusions Summary No evidence of pseudoaneurysm in the right groin. Signature Electronically signed by Darnell Monique([facility] physician) on 12/07/2022 08:51 PM Findings: Right Impression: No evidence of pseudoaneurysm [...] ! ! +---------++-----+----- +------+----+------++-- -+-----+------+----+--- ------ + [employer] Phone: Radiology Study observation (narrative) [employer] Phone: VL DUP LOWER EXTREMITY ARTER IES RIGHTOrdered By: Darnell Burk on 12-07-2022 [employer] Phone: CHLORIDE (POC)on 11-24-2022 Chloride [Moles/Vol] 105 mmol/L 98 - 107 mmol/L [facility] Creatinine W/GFR Point of Ca reon 11-24-2022 Creatinine [Mass/Vol] 1.5 mg/dL High 0.51 - 1.19 mg/dL [facility] eGFR, POC 36 mL/min/1.73m 2 [facility] Comment on above: Effective Aug 17, 2022 [...] 26 % Low 36 - 46 % [facility] [facility] Hemoglobin (Bld) [Mass/Vol] 8.7 g/dL Low 12.0 - 16.0 g/dL [facility] No Panel Informationon 11-24 Interpretation and review of laboratory results Abnormal [facility] POCT Glucoseon 11-24-2022 Glucose [Mass/Vol] 135 mg/dL High 74 - 100 mg/dL [facility] POCT urea (BUN)on 11-24-2022 POC BUN Result not available. 8 - 26 mg/dL B ON [facility] POTASSIUM (POC)on 11-24-2022 Potassium [Moles/Vol] 5.3 mmol/L High 3.5 - 4.5 mmol/L [facility] Platelet Counton 11-24-2022 Platelets (Bld) [#/Vol] 314 10*3/uL Normal 138-453 [facility] Comment on above: Performed By: #### P LT #### [facility] [address] [place] [address] Slip Laster: Luis Solis MD Platelets (Bld) [#/Vol] 314 10*3/uL [facility] SODIUM (POC)on 11-24-2022 Sodium [Moles/Vol] 142 mmol/L 138 - 146 mmol/L [facility] Cult,Bloodon 10-03-2022 Cult,Blood Specimen Description .BLOOD Special Requests L AC 10ML Culture NO GROWTH 5 DAYS Report Status FINAL 10/03/2022 Normal [facility] Comment on above: Performed By: #### B C #### [address] [address] Slip Laster: Luis Solis MD Cult,Blood Specimen Description .BLOOD Special Requests R AC 10ML Culture NO GROWTH 5 DAYS Report Status FINAL 10/03/2022 Normal [facility] Comment on above: Performed By: #### H H, BMPX #### [address] [address] Slip Laster: Luis Solis MD Basic Metab w/rfx MGon 09-30 Anion gap [Moles/Vol] 9 mmol/L Normal - [facility] Comment on above: Performed By: #### H H, BMPX #### [address] [address] Slip Laster: Luis Solis MD Calcium [Mass/Vol] 8.8 mg/dL Normal 8.6-10.4 [facility] Comment on above: Performed By: #### H H, BMPX #### [facility] [place] [address] Slip Laster: Luis Solis MD Chloride [Moles/Vol] 102 mmol/L Normal 98-107 [facility] Comment on above: Performed By: #### H H, BMPX #### [facility] [place] [address] Slip Laster: Luis Solis MD CO2 [Moles/Vol] 28 mmol/L Normal 20-31 [facility] Comment on above: Performed By: #### H H, BMPX #### [facility] [address] [place] [address] Slip Laster: Luis Solis MD Creatinine [Mass/Vol] 1.28 mg/dL High 0.50-0.90 [facility] Comment on above: Performed By: #### H H, BMPX #### [facility] [place] [address] Slip Laster: Luis Solis MD GFR/1.73 sq M.predicted among non-blacks MDRD (S/P/Bld) [Vol rate/Area] 43 mL/min/{1.73_m2} Low >60 [facility] Comment on above: Result Comment: Effective [...] Performed By: #### H H, BMPX #### [facility] [place] [address] Slip Laster: Luis Solis MD Glucose [Mass/Vol] 141 mg/dL High 70-99 [facility] Comment on above: Performed By: #### H H, BMPX #### [facility] [address] [place] [address] Slip Laster: Luis Solis MD Potassium [Moles/Vol] 4.0 mmol/L Normal 3.7-5.3 [facility] Comment on above: Performed By: #### H H, BMPX #### [facility] [address] [place] [address] Slip Laster: Luis Solis MD Sodium [Moles/Vol] 139 mmol/L Normal 135-144 [facility] Comment on above: Performed By: #### H H, BMPX #### [facility] [address] [place] [address] [phone] Slip Laster: Luis Solis MD Urea nitrogen [Mass/Vol] 18 mg/dL Normal 8-23 [facility] Comment on above: Performed By: #### H H, BMPX #### [facility] [address] [place] [address] [phone] Slip Laster: Luis Solis MD Cult,Urineon 09-30-2022 Cult,Urine Specimen Description .URINE,STRAIGHT CATHETER Culture ESCHERICHIA COLI >[id number] CFU/ML AEROCOCCUS URINAE 50 to 100,000 CFU/ML [...] Trimethoprim/Sulfa <=20 SUSCEPTIBLE Piperacillin/Tazobactam <=4 SUSCEPTIBLE Susceptible [facility] Comment on above: Performed By: #### H H, BMPX #### [facility] [address] [place] [address] [phone] Slip Laster: Luis Solis MD APTTon 09-29-2022 aPTT Coag (Bld) [Time] 30.4 s Normal 20.5-30.5 [facility] Comment on above: Result Comment: IV Heparin Therapy Range: 48.6-77.8 Performed By: #### H H, BMPX #### [id number] Slip Laster: Luis Solis MD Procalcitoninon 09-29-2022 Procalcitonin 0.23 ng/mL High <0.09 [facility] Comment on above: Result Comment: Suspected [...] entered into the Change in Procalcitonin Calculator (www.fodvww-xxh-cvvhfbcvde.[employer]) to determine the patient's Mortality Risk Prognosis In healthy neonates, plasma Procalcitonin (PCT) concentrations increase gradually after , reaching peak values at about 24 hours of age then decrease to normal values below 0.5 ng/mL by 48-72 hours of age. Performed By: #### R EJJESE, BMPX #### [facility] [place], [place] [phone] Slip Laster: Luis Solis MD APTTon 09-28-2022 aPTT Coag (Bld) [Time] 110.7 s Critically high 20.5-30.5 [facility] Comment on above: Result Comment: IV Heparin Therapy Range: 48.6-77.8 Performed By: #### P TT #### [facility] [place], [place] [phone] Slip Laster: Luis Solis MD aPTT Coag (Bld) [Time] 24.1 s Normal 20.5-30.5 [facility] Comment on above: Result Comment: IV Heparin Therapy Range: 48.6-77.8 Performed By: #### H H, BMPX #### [facility] [place] [address] Slip Laster: Luis Solis MD aPTT Coag (Bld) [Time] 22.6 s Normal 20.5-30.5 [facility] Comment on above: Result Comment: IV Heparin Therapy Range: 48.6-77.8 Performed By: #### H H, BMPX #### [facility] [place] [address] Slip Laster: Luis Solis MD Basic Metab w/rfx MGon 09-28 Anion gap [Moles/Vol] 10 mmol/L Normal 9-17 [facility] Comment on above: Performed By: #### R CHITO BMPX #### [address] [address] Slip Laster: Luis Solis MD Calcium [Mass/Vol] 7.6 mg/dL Low 8.6-10.4 [facility] Comment on above: Performed By: #### R CHITO BMPX #### [address] [address] Slip Laster: Luis Solis MD Chloride [Moles/Vol] 107 mmol/L Normal 98-107 [facility] Comment on above: Performed By: #### R CHITO, BMPX #### [facility] [address] [place] [address] Slip Laster: Luis Solis MD CO2 [Moles/Vol] 23 mmol/L Normal 20-31 [facility] Comment on above: Performed By: #### R ZAINABEC, BMPX #### [facility] [place] [address] Slip Laster: Luis Solis MD Creatinine [Mass/Vol] 1.33 mg/dL High 0.50-0.90 [facility] Comment on above: Performed By: #### R CHITO, BMPX #### [facility] [place] [address] Slip Laster: Luis Solis MD GFR/1.73 sq M.predicted among non-blacks MDRD (S/P/Bld) [Vol rate/Area] 41 mL/min/{1.73_m2} Low >60 [facility] Comment on above: Result Comment: Effective [...] Performed By: #### R CHITO BMPX #### [facility] [address] [place] [address] Slip Laster: Luis Solis MD Glucose [Mass/Vol] 243 mg/dL High 70-99 [facility] Comment on above: Performed By: #### R CHITO BMPX #### [facility] [place] [address] Slip Laster: Luis Solis MD Potassium [Moles/Vol] 4.5 mmol/L Normal 3.7-5.3 [facility] Comment on above: Performed By: #### R CHITO, BMPX #### [facility] [address] [place] [address] Slip Laster: Luis Solis MD Sodium [Moles/Vol] 140 mmol/L Normal 135-144 [facility] Comment on above: Performed By: #### R CHITO, BMPX #### [facility] [place] [address] Slip Laster: Luis Solis MD Urea nitrogen [Mass/Vol] 21 mg/dL Normal 8-23 [facility] Comment on above: Performed By: #### R EJEC, BMPX #### [facility] [place] [address] Slip Laster: Luis Solis MD Brain Natri. Peptideon 09-28 Natriuretic peptide B (Bld) [Mass/Vol] 5275 pg/mL High <300 [facility] Comment on above: Result Comment: An age-independent cutoff point of 300 pg/ml has a 98% negative predictive value excluding acute heart failure. Performed By: #### H H, BMPX #### [facility] [address] [place] [address] Slip Laster: Luis Solis MD C-Reactive Proteinon CRP [Mass/Vol] 48.0 mg/L High 0.0-5.0 [facility] Comment on above: Performed By: #### R ZAINABEC, BMPX #### [facility] [place] [address] Slip Laster: Luis Solis MD CBC with Diffon 09-28-2022 Abs. Basophil 0.06 k/uL Normal 0.00-0.20 [facility] Comment on above: Performed By: #### H H, BMPX #### [facility] [address] [place] [address] Slip Laster: Luis Solis MD Abs.Imm.Granulocyte 0.16 k/uL Normal 0.00-0.30 [facility] Comment on above: Performed By: #### H H, BMPX #### [facility] [place] [address] Slip Laster: Luis Solis MD Abs.Neutrophil (Seg) 10.78 k/uL High 1.50-8.10 [facility] Comment on above: Performed By: #### H H, BMPX #### [facility] [address] [place] [address] Slip Laster: Luis Solis MD Basophils/100 WBC (Bld) 1 % Normal 0-2 [facility] Comment on above: Performed By: #### H H, BMPX #### [address] [address] Slip Laster: Lius Solis MD Eosinophils (Bld) [#/Vol] 0.20 10*3/uL Normal 0.00-0.44 [facility] Comment on above: Performed By: #### H H, BMPX #### [facility] [place] [address] Slip Laster: Luis Solis MD Eosinophils/100 WBC (Bld) 2 % Normal 1-4 [facility] Comment on above: Performed By: #### H H, BMPX #### [address] [address] Slip Laster: Luis Solis MD Erythrocyte distribution width (RBC) [Ratio] 16.7 % High 11.8-14.4 [facility] Comment on above: Performed By: #### H H, BMPX #### [address] [address] Slip Laster: Luis Solis MD Hematocrit (Bld) [Volume fraction] 27.2 % Low 36.3-47.1 [facility] Comment on above: Performed By: #### H H, BMPX #### [facility] [place] [address] Slip Laster: Luis Solis MD Hemoglobin (Bld) [Mass/Vol] 8.1 g/dL Low 11.9-15.1 [facility] Comment on above: Performed By: #### H H, BMPX #### [facility] [place] [address] Slip Laster: Luis Solis MD Immature granulocytes/100 WBC (Bld) 1 % High 0 [facility] Comment on above: Performed By: #### H H, BMPX #### [place] [address] Slip Laster: Luis Solis MD Lymphocytes (Bld) [#/Vol] 0.74 10*3/uL Low 1.10-3.70 [facility] Comment on above: Performed By: #### H H, BMPX #### [place] [address] Slip Laster: Luis Solis MD Lymphocytes/100 WBC (Bld) 6 % Low 24-43 [facility] Comment on above: Performed By: #### H H, BMPX #### [place] [address] Slip Laster: Luis Solis MD MCH (RBC) [Entitic mass] 26.9 pg Normal 25.2-33.5 [facility] Comment on above: Performed By: #### H H, BMPX #### [place] [address] Slip Laster: Luis Solis MD MCHC (RBC) [Mass/Vol] 29.8 g/dL Normal 28.4-34.8 [facility] Comment on above: Performed By: #### H H, BMPX #### [place] [address] Slip Laster: Luis Solis MD MCV (RBC) [Entitic vol] 90.4 fL Normal 82.6-102.9 [facility] Comment on above: Performed By: #### H H, BMPX #### [place] [address] Slip Laster: Luis Solis MD Monocytes (Bld) [#/Vol] 0.78 10*3/uL Normal 0.10-1.20 [facility] Comment on above: Performed By: #### H H, BMPX #### [address] [address] Slip Laster: Luis Solis MD Monocytes/100 WBC (Bld) 6 % Normal 3-12 [facility] Comment on above: Performed By: #### H H, BMPX #### [address] [address] Slip Laster: Luis Solis MD Neutrophil (Seg) 84 % High 36-65 [facility] Comment on above: Performed By: #### H H, BMPX #### [address] [address] Slip Laster: Luis Solis MD NRBC Automated 0.2 per 100 WBC High 0.0 [facility] Comment on above: Performed By: #### H H, BMPX #### [address] [address] Slip Laster: Luis Solis MD Platelet mean volume (Bld) [Entitic vol] 9.9 fL Normal 8.1-13.5 [facility] Comment on above: Performed By: #### H H, BMPX #### [address] [address] Slip Laster: Luis Solis MD Platelets (Bld) [#/Vol] 391 10*3/uL Normal 138-453 [facility] Comment on above: Performed By: #### H H, BMPX #### [address] [address] Slip Laster: Luis Solis MD RBC (Bld) [#/Vol] 3.01 10*6/uL Low 3.95-5.11 [facility] Comment on above: Performed By: #### H H, BMPX #### [address] [phone] Slip Laster: Luis Solis MD RBC morphology finding Nom (Bld) ANISOCYTOSIS PRESENT Normal [facility] Comment on above: Performed By: #### H H, BMPX #### [facility] [address] [place] [address] Slip Laster: Luis Solis MD WBC (Bld) [#/Vol] 12.7 10*3/uL High 3.5-11.3 [facility] Comment on above: Performed By: #### H H, BMPX #### [facility] [address] [place] [address] Slip Laster: Luis Solis MD CT CHEST PULMONARY EMBOLISM [...] Matthew Chong MD 09/28/22 Final result Normal [facility] Comp Metabolic Profon 2021 Albumin [Mass/Vol] 3.5 g/dL Normal 3.5-5.2 [facility] Comment on above: Performed By: #### H H, BMPX #### [facility] [address] [place], [place] [phone] Slip Laster: Luis Solis MD Albumin/Glob Ratio 0.9 Low 1.0-2.5 [facility] Comment on above: Performed By: #### H H, BMPX #### [facility] [address] [place] [address] Slip Laster: Luis Solis MD Alkaline Phos 104 U/L Normal 35-104 [facility] Comment on above: Performed By: #### H H, BMPX #### [address] [address] Slip Laster: Luis Solis MD ALT [Catalytic activity/Vol] 7 U/L Normal 5-33 [facility] Comment on above: Performed By: #### H H, BMPX #### [address] [address] Slip Laster: Luis Solis MD Anion gap [Moles/Vol] 13 mmol/L Normal 9-17 [facility] Comment on above: Performed By: #### H H, BMPX #### [address] [address] Slip Laster: Luis Solis MD AST [Catalytic activity/Vol] 15 U/L Normal <32 [facility] Comment on above: Performed By: #### H H, BMPX #### [address] [address] Slip Laster: Luis Solis MD Bilirubin [Mass/Vol] 0.5 mg/dL Normal 0.3-1.2 [facility] Comment on above: Performed By: #### H H, BMPX #### [address] [address] Slip Laster: Luis Solis MD Calcium [Mass/Vol] 8.5 mg/dL Low 8.6-10.4 [facility] Comment on above: Performed By: #### H H, BMPX #### [facility] [place] [address] Slip Laster: Luis Solis MD Chloride [Moles/Vol] 102 mmol/L Normal 98-107 [facility] Comment on above: Performed By: #### H H, BMPX #### [address] [address] Slip Laster: Luis Solis MD CO2 [Moles/Vol] 24 mmol/L Normal 20-31 [facility] Comment on above: Performed By: #### H H, BMPX #### [facility] [address] [place] [address] Slip Laster: Luis Solis MD Creatinine [Mass/Vol] 1.62 mg/dL High 0.50-0.90 [facility] Comment on above: Performed By: #### H H, BMPX #### [address] [address] Slip Laster: Luis Solis MD GFR/1.73 sq M.predicted among non-blacks MDRD (S/P/Bld) [Vol rate/Area] 33 mL/min/{1.73_m2} Low >60 [facility] Comment on above: Result Comment: Effective [...] Performed By: #### H H, BMPX #### [address] [address] Slip Laster: Luis Solis MD Glucose [Mass/Vol] 272 mg/dL High 70-99 [facility] Comment on above: Performed By: #### H H, BMPX #### [facility] [place] [address] Slip Laster: Luis Solis MD Potassium [Moles/Vol] 4.4 mmol/L Normal 3.7-5.3 [facility] Comment on above: Performed By: #### H H, BMPX #### [facility] [place] [address] Slip Laster: Luis Solis MD Protein [Mass/Vol] 7.3 g/dL Normal 6.4-8.3 [facility] Comment on above: Performed By: #### H H, BMPX #### [facility] [place] [address] Slip Laster: Luis Solis MD Sodium [Moles/Vol] 139 mmol/L Normal 135-144 [facility] Comment on above: Performed By: #### H H, BMPX #### [facility] [place] [address] Slip Laster: Lius Solis MD Urea nitrogen [Mass/Vol] 22 mg/dL Normal 8-23 [facility] Comment on above: Performed By: #### H H, BMPX #### [facility] [place] [address] Slip Laster: Luis Solis MD Lactate, Sepsison 09-28-2022 Lactic Acid,Sep Wbld 0.6 mmol/L Normal 0.5-1.9 [facility] Comment on above: Performed By: #### R EJEC, BMPX #### [facility] [place] [address] Slip Laster: Luis Solis MD Lactic Acid,Sep Wbld 1.5 mmol/L Normal 0.5-1.9 [facility] Comment on above: Performed By: #### H H, BMPX #### [facility] [place] [address] Slip Laster: Luis Solis MD Legionella Ag, Uron 09-28-20 Legionella Ag, Ur Negative Normal NEG [facility] Comment on above: Result Comment: L. p neumophila serogroup 1 antigen not detected. A negative result does not exclude infection with Leginella pnemophila serogroup 1 nor does it rule out other microbial-caused respiratory infections of disease caused by other serogroups of Legionella pneumophila. Performed By: #### H H, BMPX #### [facility] [address] [place] [address] [phone] Slip Laster: Luis Solis MD PTon 09-28-2022 INR Coag (PPP) [Relative time] 1.1 {INR} Normal [facility] Comment on above: Result Comment: Therapeutic Range: Moderate Anticoagulant Intensity: INR = 2.0-3.0 High Anticoagulant Intensity: INR = 2.5-3.5 Performed By: #### H H, BMPX #### [facility] [address] [place] [address] Slip Laster: Luis Solis MD PT Coag (PPP) [Time] 11.8 s Normal 9.1-12.3 [facility] Comment on above: Performed By: #### H H, BMPX #### [facility] [place] [address] [phone] Slip Laster: Luis Solis MD [id number] 09-28-2022 SARS-CoV-2 (COVID-19) RNA SIRI+probe Ql (Unsp spec) Not detected Normal NOTDET [facility] Comment on above: Result Comment: Rapid [...] management decisions. Fact sheet for Healthcare Providers: https://www.fda.gov/media/753841/download Fact sheet for Patients: https://www.fda.gov/media/934935/download Methodology: Isothermal Nucleic Acid Amplification Performed By: #### R EJEC, BMPX #### [facility] [address] [place] [address] Slip Laster: Luis Solis MD Sedimentation Rateon 022 Sedimentation Rate 61 mm/Hr High 0-30 [facility] Comment on above: Performed By: #### R CHITO, BMPX #### [facility] [address] [place] [address] Slip Laster: Luis Solis MD Strep pneum Ag,CSF/Uron - Strep pneum Ag Negative Normal [facility] Comment on above: Result Comment: Stre p pneumoniae antigen not detected Performed By: #### R CHITO, BMPX #### [facility] [address] [place] [address] Slip Laster: Luis Solis MD Strep pneu Ag Source .URINE Normal [facility] Comment on above: Performed By: #### R CHITO, BMPX #### [facility] [address] [place] [address] Slip Laster: Luis Solis MD Troponinon 09-28-2022 Troponin, High Sens 222 ng/L Critically high 0-14 [facility] Comment on above: Result Comment: High Sensitivity Troponin values cannot be compared with other Troponin methodologies. Patients with high levels of Biotin oral intake (i.e >5mg/day) may have falsely decreased Troponin levels. Samples collected within 8 hours of biotin intake may require additional information for diagnosis. Performed By: #### R ZAINABEC, BMPX #### [facility] [address] [place] [address] Slip Laster: Luis Solis MD Troponin, High Sens 219 ng/L Critically high 0-14 [facility] Comment on above: Result Comment: High Sensitivity Troponin values cannot be compared with other Troponin methodologies. Patients with high levels of Biotin oral intake (i.e >5mg/day) may have falsely decreased Troponin levels. Samples collected within 8 hours of biotin intake may require additional information for diagnosis. Performed By: #### H H, BMPX #### [facility] [place] [address] Slip Laster: Luis Solis MD Type + Screenon 09-28-2022 Type + Screen Sample Expiration 10/01/2022,2359 Arm Band Number [id number] ABO/Rh(D) O NEGATIVE Antibody Screen NEGATIVE Normal [facility] Comment on above: Performed By: #### H H, BMPX #### [facility] [place] [address] Slip Laster: Luis Solis MD Urinalysis w/ Microon 2021 Bacteria MANY Abnormal NONE [facility] Comment on above: Performed By: #### H H, BMPX #### [facility] [place] [address] Slip Laster: Luis Solis MD Bilirubin, SemiQt,Ur Negative Normal NEG [facility] Comment on above: Performed By: #### H H, BMPX #### [facility] [place] [address] Slip Laster: Luis Solis MD Blood, Urine Negative Normal NEG [facility] Comment on above: Performed By: #### H H, BMPX #### [facility] [place] [address] Slip Laster: Luis Solsi MD Casts 0 TO 2 HYALINE Normal 0-8 [facility] Comment on above: Result Comment: Refe rence range defined for non-centrifuged specimen. Performed By: #### H H, BMPX #### [facility] [place] [address] Slip Laster: Luis Solis MD Clarity (U) Cloudy Abnormal CLEAR [facility] Comment on above: Performed By: #### H H, BMPX #### [facility] [address] [place] [address] Slip Laster: Luis Solis MD Color (U) Yellow Normal YEL [facility] Comment on above: Performed By: #### H H, BMPX #### [facility] [address] [place] [address] Slip Laster: Luis Solis MD Epithelial cells LM Ql (Urine sed) 5 TO 10 Normal 0-5 [facility] Comment on above: Performed By: #### H H, BMPX #### [facility] [address] [place] [address] Slip Laster: Luis Solis MD Glucose Ql (U) 2+ Abnormal NEG [facility] Comment on above: Performed By: #### H H, BMPX #### [facility] [place] [address] Slip Laster: Luis Solis MD Ketones Ql (U) TRACE Abnormal NEG [facility] Comment on above: Performed By: #### H H, BMPX #### [facility] via[address] [place] [phone] Slip Laster: Luis Solis MD Leukocyte esterase Test strip Ql (U) TRACE Abnormal NEG [facility] Comment on above: Performed By: #### H H, BMPX #### [address] [address] Slip Laster: Luis Solis MD Nitrite,Ur Negative Normal NEG [facility] Comment on above: Performed By: #### H H, BMPX #### [facility] [address] [place] [phone] Slip Laster: Luis Solis MD PH,Ur 5.5 Normal 5.0-8.0 [facility] Comment on above: Performed By: #### H H, BMPX #### [facility] [address] [place] [phone] Slip Laster: Luis Solis MD Protein Ql (U) TRACE Abnormal NEG [facility] Comment on above: Performed By: #### H H, BMPX #### [address] [address] Slip Laster: Luis Solis MD Spec. [place],Ur 1.018 Normal 1.005-1.030 [facility] Comment on above: Performed By: #### H H, BMPX #### [address] [address] Slip Laster: Luis Solis MD Urine RBC's 0 TO 2 Normal 0-4 [facility] Comment on above: Result Comment: Refe rence range defined for non-centrifuged specimen. Performed By: #### H H, BMPX #### [address] [address] Slip Laster: Luis Solis MD Urine WBC's 10 TO 20 Normal 0-5 [facility] Comment on above: Performed By: #### H H, BMPX #### [address] [address] Slip Laster: Luis Solis MD Urobilinogen,Ur Normal Normal NORM [facility] Comment on above: Performed By: #### H H, BMPX #### [address] [address] Slip Laster: Luis Solis MD XR CHEST PORTABLEon 09-28-20 22 XR CHEST PORTABLE EXAMINATION: ONE XRAY VIEW [...] Garth Herr MD 09/28/22 Final result Normal [facility] CT BRAIN WO CONTRASTon 03-31 CT BRAIN WO CONTRAST [facility] [address] [place] [address] ===== Patient Name: CUCA GOODWIN : 1945 Sex: F Age: Race: White Pt. 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 Electronically signed: Mari Chavez. Transcribed by: [email or web address], User Resident: Electronically Signed by: MARI CHAVEZ @ 03/31/2022 03:46 PM Normal [facility] Comment on above: Order Comment: hydro cephalus s/p evp [place] shunt RECREATION COUNSELOR SHUNT SERIESon 03-31-2022 RECREATION COUNSELOR SHUNT SERIES [facility] [address] [place] [id number] ===== Patient Name: CUCA GOODWIN : [...] , , Ordering Provider - A NIELS RAWLS PELT DROPPER , Exam: RECREATION COUNSELOR SHUNT SERIES ===== RECREATION COUNSELOR SHUNT SERIES HISTORY: Shunt evaluation. COMPARISON: 09/17/2020. [...] described. Electronically signed: Lam Chew. Transcribed by: [email or web address], User Resident: Electronically Signed by: LAM CHEW @ 04/03/2022 08:50 AM Normal [facility] Comment on above: Order Comment: , .br E.brEr/o kinking or discontinuity of shunt tubing and do image perpendicularl to valve to check OP , .brr/o kinking or discontinuity of shunt tubing and do image perpendicularl to valve to check OP , , , Ordering Provider - A NIELS RAWLS PELT DROPPER , Lipid Profileon 03-26-2021 Cholesterol [Mass/Vol] 117 mg/dL Normal <200 [facility] Comment on above: Result Comment: Cholesterol Guidelines: <200 Desirable 200-240 Borderline >240 Undesirable Performed By: #### L IPR #### [facility] [address] [place], [place] [id number] Slip Laster: Luis Solis MD Cholesterol in HDL [Mass/Vol] 39 mg/dL Low >40 [facility] Comment on above: Result Comment: HDL Guidelines: <40 Undesirable 40-59 Borderline >59 Desirable Performed By: #### L IPR #### [facility] [address] [place], [place] [id number] Slip Laster: Luis Solis MD Cholesterol in LDL [Mass/Vol] 62 mg/dL Normal 0-130 [facility] Comment on above: Result Comment: LDL Guidelines: <100 Desirable 100-129 Near to/above Desirable 130-159 Borderline >159 Undesirable Direct (measured) LDL and calculated LDL are not interchangeable tests. Performed By: #### L IPR #### [address] [place] [address] Slip Laster: Luis Solis MD Cholesterol.total/C holesterol in HDL [Mass ratio] 3.0 {ratio} Normal <5 [facility] Comment on above: Performed By: #### L IPR #### [address] [place] [address] Slip Laster: Luis Solis MD Triglyceride [Mass/Vol] 79 mg/dL Normal <150 [facility] Comment on above: Result Comment: Triglyceride Guidelines: <150 Desirable 150-199 Borderline 200-499 High >499 Very high Based on AHA Guidelines for fasting triglyceride, August 2012. Performed By: #### L IPR #### [address] [address] Slip Laster: Luis Solis MD Cholesterol,VLDL NOT REPORTED Normal 12-14 [facility] Comment on above: Performed By: #### L IPR #### [address] [address] Slip Laster: Luis Solis MD Uric Acidon 03-24-2021 Urate [Mass/Vol] 6.8 mg/dL High 2.4-5.7 [facility] Comment on above: Performed By: #### U RI #### [facility] [address] [place] [address] Slip Laster: Giovanny Carpenter MD Uric AcidOrdered By: Lakeshia Henriquez on 03-24-2021 Interpretation and review of laboratory results Abnormal [facility] [place] Phone: Urate [Mass/Vol] 6.8 mg/dL High 2.4 - 5.7 mg/dL [facility] Phone: CBC AUTO DIFFon 03-20-2021 BASO # 0.0 103/ul Normal 0.0-0.1 [facility] Comment on above: Performed By: #### C BC #### [facility] [address] [place], [place] [address] Ghulam Amy Basophils/100 WBC (Bld) 0.4 % Normal 0.2-2.0 [facility] Comment on above: Performed By: #### C BC #### [facility] [address] [place] [id number] Ghulam Amy EO # 0.4 103/ul Normal 0.0-0.7 [facility] Comment on above: Performed By: #### C BC #### [facility] [address] [place] [phone] Ghulam Amy Eosinophils/100 WBC (Bld) 4.3 % Normal 0.9-7.0 [facility] Comment on above: Performed By: #### C BC #### [facility] [address] [place], [place] [phone] Ghulam Amy Erythrocyte distribution width (RBC) [Ratio] 15.9 % Critically high 11.0-15.0 [facility] Comment on above: Performed By: #### C BC #### [facility] [address] [place], [place] [phone] Ghulam Amy Hematocrit (Bld) [Volume fraction] 28.5 % Critically low 36.0-48.0 [facility] Comment on above: Performed By: #### C BC #### [facility] [address] [place], [place] [phone] Ghulam Amy Hemoglobin (Bld) [Mass/Vol] 8.9 g/dL Critically low 12.0-16.0 [facility] Comment on above: Performed By: #### C BC #### [facility] [address] [place] [phone] Ghulam Amy IG # 0.04 10e3/ul Critically high 0.00-0.[address] [facility] Comment on above: Performed By: #### C BC #### [facility] [address] [place] [id number] Ghulam Amy IG % 0.4 % Normal 0.0-0.5 [facility] Comment on above: Performed By: #### C BC #### [facility] [address] [place], [place] [address] Ghulam Amy LYMPH # 2.2 103/ul Normal 1.2-3.8 [facility] Comment on above: Performed By: #### C BC #### [facility] [address] [place], [place] [address] Ghulam Amy Lymphocytes/100 WBC (Bld) 21.9 % Normal 20.5-60.0 [facility] Comment on above: Performed By: #### C BC #### [facility] [address] [place] [address] Ghulam Amy MANUAL DIFF REQ NO Normal [facility] Comment on above: Performed By: #### C BC #### [facility] [address] [place], [place] [phone] Ghulam Amy MCH (RBC) [Entitic mass] 27.1 pg Normal 26.7-34.0 [facility] Comment on above: Performed By: #### C BC #### [facility] [address] [place], [place] [phone] Ghulam Amy MCHC (RBC) [Mass/Vol] 31.2 g/dL Normal 29.9-35.2 [facility] Comment on above: Performed By: #### C BC #### [facility] [address] [place], [place] [phone] Ghulam Amy MCV (RBC) [Entitic vol] 86.9 fL Normal 81.0-99.0 [facility] Comment on above: Performed By: #### C BC #### [facility] [address] [place], [place] [address] Ghulam Amy MONO # 1.0 103/ul Critically high 0.3-0.8 [facility] Comment on above: Performed By: #### C BC #### [facility] [address] [place], [place] [phone] Ghulam Amy Monocytes/100 WBC (Bld) 10.1 % Normal 1.7-12.0 [facility] Comment on above: Performed By: #### C BC #### [facility] [address] [place] [phone] Ghulam Reyes NEUT # 6.2 103/ul Normal 1.4-6.5 [facility] Comment on above: Performed By: #### C BC #### [facility] [address] [place] [phone] Ghulam Reyes Neutrophils/100 WBC (Bld) 62.9 % Normal 43.0-75.0 [facility] Comment on above: Performed By: #### C BC #### [facility] [address] [place], [place] [phone] Ghulam Reyes Platelet mean volume (Bld) [Entitic vol] 10.2 fL Normal 9.5-13.5 [facility] Comment on above: Performed By: #### C BC #### [facility] [address] [place], [place] [phone] Ghulam Reyes PLT 289 103/ul Normal 150-450 [facility] Comment on above: Performed By: #### C BC #### [facility] [address] [place], [place] [address] Ghulam Reyes RBC 3.28 106/ul Critically low 4.20-5.40 [facility] Comment on above: Performed By: #### C BC #### [facility] [address] [place], [place] [address] Ghulam Reyes WBC 9.9 103/ul Normal 4.0-11.0 [facility] Comment on above: Performed By: #### C BC #### [facility] [address] [place], [place] [phone] Ghulam Sotoen PROF 14(COMP METB)on 021 Albumin [Mass/Vol] 2.8 g/dL Critically low 3.5-5.0 [facility] Comment on above: Performed By: #### C MP #### [facility] [address] [place], [place] [address] Ghulam Reyes Albumin/Globulin [Mass ratio] 0.6 {ratio} Normal [facility] Comment on above: Performed By: #### C MP #### [facility] [address] [place], [place] [address] Ghulam Amy ALP [Catalytic activity/Vol] 95 U/L Normal 38-126 [facility] Comment on above: Performed By: #### C MP #### [facility] [address] [place] [address] Ghulam Amy ALT [Catalytic activity/Vol] 16 U/L Normal 9-52 [facility] Comment on above: Performed By: #### C MP #### [facility] [address] [place] [address] Ghulam Amy Anion gap [Moles/Vol] 11.6 mmol/L Normal [facility] Comment on above: Performed By: #### C MP #### [facility] [address] [place] [address] Ghulam Amy AST [Catalytic activity/Vol] 13 U/L Critically low 14-36 [facility] Comment on above: Performed By: #### C MP #### [facility] [address] [place] [address] Ghulam Amy Bilirubin [Mass/Vol] 0.4 mg/dL Normal 0.2-1.3 [facility] Comment on above: Performed By: #### C MP #### [facility] [address] [place] [address] Ghulam Amy Calcium [Mass/Vol] 8.9 mg/dL Normal 8.4-10.2 [facility] Comment on above: Performed By: #### C MP #### [facility] [address] [place] [address] Ghulam Amy Chloride [Moles/Vol] 103 mmol/L Normal 98-107 [facility] Comment on above: Performed By: #### C MP #### [facility] [address] [place], [place] [phone] Ghulam Amy CO2 [Moles/Vol] 27.4 mmol/L Normal 22.0-30.0 [facility] Comment on above: Performed By: #### C MP #### [facility] [address] [place], [place] [address] Ghulam Amy Creatinine [Mass/Vol] 1.86 mg/dL Critically high 0.52-1.04 [facility] Comment on above: Performed By: #### C MP #### [facility] [address] [place], [place] [address] Ghulam Amy EGFR-AF GUATEMALAN 32 mL/min/1.73m2 Critically low >=60 [facility] Comment on above: Performed By: #### C MP #### [facility] [address] [place], [place] [address] Ghulam Amy EGFR-NON AF GUATEMALAN 26 mL/min/1.73m2 Critically low >=60 [facility] Comment on above: Performed By: #### C MP #### [facility] [address] [place], [place] [address] Ghulam Amy Globulin (S) [Mass/Vol] 4.6 g/dL Normal [facility] Comment on above: Performed By: #### C MP #### [facility] [address] [place] [phone] Ghulam Amy Glucose [Mass/Vol] 174 mg/dL Critically high 74-106 [facility] Comment on above: Performed By: #### C MP #### [facility] [address] [place] [phone] Ghulam Amy Potassium [Moles/Vol] 4.0 mmol/L Normal 3.4-5.0 [facility] Comment on above: Performed By: #### C MP #### [facility] [address] [place] [phone] Ghulam Amy Protein [Mass/Vol] 7.4 g/dL Normal 6.1-8.2 [facility] Comment on above: Performed By: #### C MP #### [facility] [address] [place] [phone] Ghulam Amy Sodium [Moles/Vol] 138 mmol/L Normal 137-145 [facility] Comment on above: Performed By: #### C MP #### [facility] [address] [place], [place] [address] Ghulam Amy Urea nitrogen [Mass/Vol] 24.0 mg/dL Critically high 7.0-17.0 [facility] Comment on above: Performed By: #### C MP #### [facility] [address] [place] [address] Ghulam Amy Urea nitrogen/Creatinine [Mass ratio] 12.9 mg/mg Normal [facility] Comment on above: Performed By: #### C MP #### [facility] [address] [place] [address] Ghulam Amy RESPIRATORY PANEL PLUSon Adenovirus Not detected Normal NOT DETECTED [facility] Comment on above: Performed By: #### R SPLUS #### [facility] [address] [place] [address] Ghulam Amy B. Parapertusis Not detected Normal NOT DETECTED [facility] Comment on above: Performed By: #### R SPLUS #### [facility] [address] [place] [address] Ghulam Amy B. Pertussis Not detected Normal NOT DETECTED [facility] Comment on above: Performed By: #### R SPLUS #### [facility] [address] [place] [address] Ghulam Amy Chlamydia Pneumoniae Not detected Normal NOT DETECTED [facility] Comment on above: Performed By: #### R SPLUS #### [facility] [address] [place] [address] Ghulam Amy Coronavirus 229E Not detected Normal NOT DETECTED [facility] Comment on above: Performed By: #### R SPLUS #### [facility] [address] [place] [address] Ghulam Amy Coronavirus HKU1 Not detected Normal NOT DETECTED [facility] Comment on above: Performed By: #### R SPLUS #### [facility] [address] [place] [address] Ghulam Amy Coronavirus NL63 Not detected Normal NOT DETECTED [facility] Comment on above: Performed By: #### R SPLUS #### [facility] [address] [place] [address] Ghulam Amy Coronavirus OC43 Not detected Normal NOT DETECTED [facility] Comment on above: Performed By: #### R SPLUS #### [facility] [address] [place], [place] [address] Ghulam Amy Influenza A H1 2009 Not detected Normal NOT DETECTED [facility] Comment on above: Performed By: #### R SPLUS #### [facility] [address] [place] [address] Ghulam Amy Influenza B Not detected Normal NOT DETECTED [facility] Comment on above: Performed By: #### R SPLUS #### [facility] [address] [place] [address] Ghulam Amy Metapneumovirus Not detected Normal NOT DETECTED [facility] Comment on above: Performed By: #### R SPLUS #### [facility] [address] [place] [address] Ghulam Amy Mycoplas. Pneumoniae Not detected Normal NOT DETECTED [facility] Comment on above: Performed By: #### R SPLUS #### [facility] [address] [place] [address] Ghulam Amy Parainfluenza 1 Not detected Normal NOT DETECTED [facility] Comment on above: Performed By: #### R SPLUS #### [facility] [address] [place] [address] Ghulam Amy Parainfluenza 2 Not detected Normal NOT DETECTED [facility] Comment on above: Performed By: #### R SPLUS #### [facility] [address] [place] [address] Ghulam Amy Parainfluenza 3 Not detected Normal NOT DETECTED [facility] Comment on above: Performed By: #### R SPLUS #### [facility] [address] [place] [address] Ghulam Amy Parainfluenza 4 Not detected Normal NOT DETECTED [facility] Comment on above: Performed By: #### R SPLUS #### [facility] [address] [place] [address] Ghulam Amy Rhino/Enterovirus Not detected Normal NOT DETECTED [facility] Comment on above: Performed By: #### R SPLUS #### [facility] [address] [place] [address] Ghulam Reyes RP2 Header 1 RESPIRATORY PANEL: VIRUSES Normal [facility] Comment on above: Performed By: #### R SPLUS #### [facility] [address] [place] [address] Ghulam Reyes RP2 Header 2 RESPIRATORY PANEL: BACTERIA Normal [facility] Comment on above: Performed By: #### R SPLUS #### [facility] [address] [place] [address] Ghulam Reyes RP2 Header 4 EUA SEE BELOW Normal [facility] Comment on above: Result Comment: This test is not yet approved or cleared by the [place] FDA. When there are no FDA-approved or cleared tests available, and other criteria are met, FDA can make tests available under an emergency access mechanism called an Emergency Use Authorization (EUA). The EUA for this test is supported by the Credit Risk Modeler of Health and Human Service?s (HHS?s) declaration [...] used). Performed By: #### R SPLUS #### [facility] [address] [place] [address] [facility] Not detected Normal NOT DETECTED [facility] Comment on above: Performed By: #### R SPLUS #### [facility] [address] [place] [address] [facility] SARS-CoV-2 (COVID-19) RNA SIRI+probe Ql (Unsp spec) Not detected Normal NOT DETECTED [facility] Comment on above: Performed By: #### R SPLUS #### [facility] [address] [place] [address] Ghulam Amy URIC ACID SERUMon 03-20-2021 Urate [Mass/Vol] 7.4 mg/dL Critically high 2.5-6.2 [facility] Comment on above: Performed By: #### U GIRISH #### [facility] [address] [place] [address] Ghulam Amy CBC AUTO DIFFon 03-19-2021 BASO # 0.0 103/ul Normal 0.0-0.1 [facility] Comment on above: Performed By: #### C BC #### [facility] [address] [place] [phone] Ghulam Amy Basophils/100 WBC (Bld) 0.3 % Normal 0.2-2.0 [facility] Comment on above: Performed By: #### C BC #### [facility] [address] [place] [phone] Ghulam Amy EO # 0.1 103/ul Normal 0.0-0.7 [facility] Comment on above: Performed By: #### C BC #### [facility] [address] [place] [address] Ghulam Amy Eosinophils/100 WBC (Bld) 0.9 % Normal 0.9-7.0 [facility] Comment on above: Performed By: #### C BC #### [facility] [address] [place] [address] Ghulam Amy Erythrocyte distribution width (RBC) [Ratio] 15.5 % Critically high 11.0-15.0 [facility] Comment on above: Performed By: #### C BC #### [facility] [address] [place] [phone] Ghulam Amy Hematocrit (Bld) [Volume fraction] 28.1 % Critically low 36.0-48.0 [facility] Comment on above: Performed By: #### C BC #### [facility] [address] [place] [phone] Ghulam Amy Hemoglobin (Bld) [Mass/Vol] 8.9 g/dL Critically low 12.0-16.0 [facility] Comment on above: Performed By: #### C BC #### [facility] [address] [place] [phone] Ghulam Amy IG # 0.05 10e3/ul Critically high 0.00-0.[address] [facility] Comment on above: Performed By: #### C BC #### [facility] [address] [place] [address] Ghulam Amy IG % 0.5 % Normal 0.0-0.5 [facility] Comment on above: Performed By: #### C BC #### [facility] [address] [place], [place] [address] Ghulamgabriela Sotoen LYMPH # 1.9 103/ul Normal 1.2-3.8 [facility] Comment on above: Performed By: #### C BC #### [facility] [address] [place] [address] Ghulamgabriela Reyes Lymphocytes/100 WBC (Bld) 17.2 % Critically low 20.5-60.0 [facility] Comment on above: Performed By: #### C BC #### [facility] [address] [place] [address] Ghulam Reyes MANUAL DIFF REQ NO Normal [facility] Comment on above: Performed By: #### C BC #### [facility] [address] [place] [address] Ghulamgabriela Sotoen MCH (RBC) [Entitic mass] 27.1 pg Normal 26.7-34.0 [facility] Comment on above: Performed By: #### C BC #### [facility] [address] [place], [place] [phone] Ghulamgabriela Reyes MCHC (RBC) [Mass/Vol] 31.7 g/dL Normal 29.9-35.2 [facility] Comment on above: Performed By: #### C BC #### [facility] [address] [place] [address] Ghulamgabriela Reyes MCV (RBC) [Entitic vol] 85.4 fL Normal 81.0-99.0 [facility] Comment on above: Performed By: #### C BC #### [facility] [address] [place], [place] [address] Ghulam Amy MONO # 1.0 103/ul Critically high 0.3-0.8 [facility] Comment on above: Performed By: #### C BC #### [facility] [address] [place], [place] [address] Ghulam Amy Monocytes/100 WBC (Bld) 9.5 % Normal 1.7-12.0 [facility] Comment on above: Performed By: #### C BC #### [facility] [address] [id number] Ghulam Reyes NEUT # 7.7 103/ul Critically high 1.4-6.5 [facility] Comment on above: Performed By: #### C BC #### [facility] [address] [id number] Ghulam Reyes Neutrophils/100 WBC (Bld) 71.6 % Normal 43.0-75.0 [facility] Comment on above: Performed By: #### C BC #### [facility] [address] [address] Ghulam Reyes Platelet mean volume (Bld) [Entitic vol] 10.1 fL Normal 9.5-13.5 [facility] Comment on above: Performed By: #### C BC #### [facility] [address] [address] Ghulam Reyes PLT 285 103/ul Normal 150-450 [facility] Comment on above: Performed By: #### C BC #### [facility] [address] [address] Ghulam Reyes RBC 3.29 106/ul Critically low 4.20-5.40 [facility] Comment on above: Performed By: #### C BC #### [facility] [address] [id number] Ghulam Reyes WBC 10.7 103/ul Normal 4.0-11.0 [facility] Comment on above: Performed By: #### C BC #### [facility] [address] [address] Ghulam Reyes MAGNESIUMon 03-19-2021 Magnesium [Mass/Vol] 1.9 mg/dL Normal 1.6-2.3 [facility] Comment on above: Performed By: #### M G ####[facility] [address] [id number] Reyes POINT OF CARE GLUCOSEon Glucose [Mass/Vol] 68 mg/dL Critically low 74-106 [facility] Comment on above: Performed By: #### P OCGLUC #### [facility] [address] [place], [place] [id number] Ghulam Amy Glucose [Mass/Vol] 91 mg/dL Normal 74-106 [facility] Comment on above: Performed By: #### P OCGLUC #### [facility] [address] [id number] Ghulam Amy Glucose [Mass/Vol] 136 mg/dL Critically high 74-106 [facility] Comment on above: Performed By: #### P OCGLUC #### [facility] [address] [place], [place] [id number] Ghulam Amy PROF 14(COMP METB)on 021 Albumin [Mass/Vol] 2.7 g/dL Critically low 3.5-5.0 [facility] Comment on above: Performed By: #### C MP #### [facility] [address] [place], [place] [id number] Ghulam Amy Albumin/Globulin [Mass ratio] 0.6 {ratio} Normal [facility] Comment on above: Performed By: #### C MP #### [facility] [address] [place], [place] [phone] Ghulam Amy ALP [Catalytic activity/Vol] 99 U/L Normal 38-126 [facility] Comment on above: Performed By: #### C MP #### [facility] [address] [place], [place] [phone] Ghulam Amy ALT [Catalytic activity/Vol] 14 U/L Normal 9-52 [facility] Comment on above: Performed By: #### C MP #### [facility] [address] [place], [place] [phone] Ghulam Amy Anion gap [Moles/Vol] 10.5 mmol/L Normal [facility] Comment on above: Performed By: #### C MP #### [facility] [address] [place], [place] [phone] Ghulam Amy AST [Catalytic activity/Vol] 13 U/L Critically low 14-36 [facility] Comment on above: Performed By: #### C MP #### [facility] [address], [place] [address] Ghulam Amy Bilirubin [Mass/Vol] 0.5 mg/dL Normal 0.2-1.3 [facility] Comment on above: Performed By: #### C MP #### [facility] [address], [place] [address] Ghulam Amy Calcium [Mass/Vol] 9.1 mg/dL Normal 8.4-10.2 [facility] Comment on above: Performed By: #### C MP #### [facility] [address] [place], [place] [address] Ghulam Amy Chloride [Moles/Vol] 104 mmol/L Normal 98-107 [facility] Comment on above: Performed By: #### C MP #### [facility] [address] [address] Ghulam Amy CO2 [Moles/Vol] 27.2 mmol/L Normal 22.0-30.0 [facility] Comment on above: Performed By: #### C MP #### [facility] [address] [phone] Ghulam Amy Creatinine [Mass/Vol] 1.57 mg/dL Critically high 0.52-1.04 [facility] Comment on above: Performed By: #### C MP #### [facility] [address] [id number] Ghulam Amy EGFR-AF GUATEMALAN 39 mL/min/1.73m2 Critically low >=60 [facility] Comment on above: Performed By: #### C MP #### [facility] [address] [place], [place] [address] Ghulam Amy EGFR-NON AF GUATEMALAN 32 mL/min/1.73m2 Critically low >=60 [facility] Comment on above: Performed By: #### C MP #### [facility] [address], [place] [address] Ghulam Amy Globulin (S) [Mass/Vol] 4.6 g/dL Normal [facility] Comment on above: Performed By: #### C MP #### [facility] [address], [place] [address] Ghulam Amy Glucose [Mass/Vol] 209 mg/dL Critically high 74-106 [facility] Comment on above: Performed By: #### C MP #### [facility] [address], [place] [address] Ghulam Amy Potassium [Moles/Vol] 3.7 mmol/L Normal 3.4-5.0 [facility] Comment on above: Performed By: #### C MP #### [facility] [address], [place] [address] Ghulam Amy Protein [Mass/Vol] 7.3 g/dL Normal 6.1-8.2 [facility] Comment on above: Performed By: #### C MP #### [facility] [address] [phone] Ghulam Amy Sodium [Moles/Vol] 138 mmol/L Normal 137-145 [facility] Comment on above: Performed By: #### C MP #### [facility] [address] [id number] Ghulam Amy Urea nitrogen [Mass/Vol] 28.0 mg/dL Critically high 7.0-17.0 [facility] Comment on above: Performed By: #### C MP #### [facility] [address], [place] [address] Ghulam Amy Urea nitrogen/Creatinine [Mass ratio] 17.8 mg/mg Normal [facility] Comment on above: Performed By: #### C MP #### [facility] [address], [place] [address] Ghulam Amy Vital Signs Date Time Vital Sign Value Performing Clinician Facility 08-28-2024 08:150 Body height 165.1 cm Pam RICHEY Work Phone: [facility] [place] 08-28-2024 08:150400 Body mass index (BMI) [Ratio] 34.35 kg/m2 Pam RICHEY Work Phone: [facility] [place] 08-28-2024 08:15-0400 Body temperature 97.5 [degF] aPm Ley APRN-PELT DROPPER Work Phone: [facility] [employer] [facility] 08-28-2024 08:15-0400 Body weight 93.62 kg Pam Ley APRN-PELT DROPPER Work Phone: [facility] [place] 08-28-2024 08:15-0400 Diastolic blood pressure 60 mm[Hg] Pam Ley APRN-PELT DROPPER Work Phone: [facility] [place] 08-28-2024 08:15-0400 Heart rate 74 /min Pam Ley APRN-PELT DROPPER Work Phone: [facility] [place] 08-28-2024 08:15-0400 Respiratory rate 18 /min Pam Ley APRN-PELT DROPPER Work Phone: [facility] [place] 08-28-2024 08:15-0400 SaO2% (BldA) [Mass fraction] 90 % Pam Ley APRN-BARTOLO Work Phone: [facility] [place] 08-28-2024 08:15-0400 Systolic blood pressure 120 mm[Hg] Pam Ley APRN-PELT DROPPER Work Phone: [facility] [place] 02-09-2024 13:00-0400 Body height 165.1 cm Pam Ley APRN-PELT DROPPER Work Phone: [facility] [place] 02-09-2024 13:00-0400 Body mass index (BMI) [Ratio] 33.35 kg/m2 Pam Ley APRN-PELT DROPPER Work Phone: [facility] [place] 02-09-2024 13:00-0400 Body temperature 98.2 [degF] Pam Ley APRN-PELT DROPPER Work Phone: [facility] [place] 02-09-2024 13:00-0400 Body weight 90.9 kg Pam Ley APRN-PELT DROPPER Work Phone: [facility] [place] 02-09-2024 13:00-0400 Diastolic blood pressure 72 mm[Hg] Pam Ley APRN-PELT DROPPER Work Phone: [facility] [place] 02-09-2024 13:00-0400 Heart rate 79 /min Pam Ley APRN-PELT DROPPER Work Phone: [facility] [place] 02-09-2024 13:00-0400 Respiratory rate 20 /min Pam Ley APRN-PELT DROPPER Work Phone: [facility] [place] 02-09-2024 13:00-0400 SaO2% (BldA) [Mass fraction] 97 % Pam Ley APRN-BARTOLO Work Phone: [facility] [place] 02-09-2024 13:00-0400 Systolic blood pressure 134 mm[Hg] Pam Ley APRN-BARTOLO Work Phone: [facility] [place] 12-15-2023 14:51-0500 Body height 165.1 cm Pam Ley APRN-PELT DROPPER Work Phone: [facility] [place] 12-15-2023 14:51-0500 Body mass index (BMI) [Ratio] 31.02 kg/m2 Pam Ley APRN-PELT DROPPER Work Phone: [facility] [place] 12-15-2023 14:51-0500 Body temperature 98.29 [degF] Pam Ley APRN-BARTOLO Work Phone: [facility] [place] 12-15-2023 14:51-0500 Body weight 84.54 kg Pam Ley APRN-PELT DROPPER Work Phone: [facility] [place] 12-15-2023 14:51-0500 Diastolic blood pressure 60 mm[Hg] Pam Ley APRN-PELT DROPPER Work Phone: [facility] [place] 12-15-2023 14:51-0500 Heart rate 89 /min Pambrannon Ley APRN-PELT DROPPER Work Phone: [facility] [place] 12-15-2023 14:51-0500 SaO2% (BldA) [Mass fraction] 94 % Pam Ley METAL [employer]ER-[employer]PER Work Phone: [facility] [place] 12-15-2023 14:51-0500 Systolic blood pressure 100 mm[Hg] Pam Ley METAL BALER-PELT [employer]OPPER Work Phone: [facility] [place] 11-25-2023 13:56-0500 Body height 165.1 cm Rambo Muñoz MD Work Phone: [facility] [place] 11-25-2023 13:56-0500 Body mass index (BMI) [Ratio] 31.45 kg/m2 Rambo Muñoz MD Work Phone: [facility] [place] 11-25-2023 13:56-0500 Body temperature 99 [degF] Rambo Muñoz MD Work Phone: [facility] [place] 11-25-2023 13:56-0500 Body weight 85.73 kg Rambo Muñoz MD Work Phone: [facility] [place] 11-25-2023 13:56-0500 Diastolic blood pressure 57 mm[Hg] Rambo Muñoz MD Work Phone: [facility] [place] 11-25-2023 13:56-0500 Heart rate 65 /min Rambo Muñoz MD Work Phone: [facility] [employer] [facility] 11-25-2023 13:56-0500 Respiratory rate 16 /min Rambo Muñoz MD Work Phone: [facility] [place] 11-25-2023 13:56-0500 SaO2% (BldA) [Mass fraction] 91 % Rambo Muñoz MD Work Phone: [facility] [place] 11-25-2023 13:56-0500 Systolic blood pressure 141 mm[Hg] Rambo Muñoz MD Work Phone: [facility] [place] 01-13-2023 07:13-0500 Body temperature 98.01 [degF] Luna Daniels MD Work Phone: [facility] 01-13-2023 07:13-0500 Diastolic blood pressure 54 mm[Hg] Luna Daniels MD Work Phone: [employer] 01-13-2023 07:13-0500 Heart rate 57 /min Luna Daniels MD Work Phone: [facility] 01-13-2023 07:13-0500 Respiratory rate 18 /min Luna Daniels MD Work Phone: [facility] 01-13-2023 07:13-0500 SaO2% (BldA) [Mass fraction] 98 % Luna Daniels MD Work Phone: [employer] 01-13-2023 07:13-0500 Systolic blood pressure 141 mm[Hg] Luna Daniels MD Work Phone: [employer] 12-11-2022 07:58-0500 Body temperature 98.8 [degF] Luna Daniels MD Work Phone: [employer] 12-11-2022 07:58-0500 Diastolic blood pressure 56 mm[Hg] Luna Daniels MD Work Phone: [employer] 12-11-2022 07:58-0500 Heart rate 85 /min Luna Daniels MD Work Phone: [employer] 12-11-2022 07:58-0500 Respiratory rate 16 /min Luna Daniels MD Work Phone: [employer] 12-11-2022 07:58-0500 SaO2% (BldA) [Mass fraction] 97 % Luna Daniels MD Work Phone: [employer] 12-11-2022 07:58-0500 Systolic blood pressure 156 mm[Hg] Luna Daniels MD Work Phone: [employer] 12-07-2022 11:44-0500 Body height 165.1 cm Luna Daniels MD Work Phone: [employer] 12-07-2022 11:44-0500 Body mass index (BMI) [Ratio] 34.61 kg/m2 Luna Daniels MD Work Phone: [employer] 12-07-2022 11:44-0500 Body weight 94.35 kg Luna Daniels MD Work Phone: [employer] 11-24-2022 11:44-0500 Body height 165.1 cm Stv B [employer] 11-24-2022 11:44-0500 Body mass index (BMI) [Ratio] 34.95 kg/m2 Stv [facility] [employer] 11-24-2022 11:44-0500 Body temperature 98.4 [degF] Stv B [employer] 11-24-2022 11:44-0500 Body weight 95.25 kg Stv B [employer] 11-24-2022 11:44-0500 Diastolic blood pressure 45 mm[Hg] Stv B [employer] 11-24-2022 11:44-0500 Heart rate 60 /min Stv B [employer] 11-24-2022 11:44-0500 Respiratory rate 15 /min [facility] [employer] 11-24-2022 11:44-0500 SaO2% (BldA) [Mass fraction] 93 % Stv B [employer] 11-24-2022 11:44-0500 Systolic blood pressure 131 mm[Hg] Stv B [employer] Encounters Encounter Date Encounter Type Care Provider Facility Start: 09-15-2024 End: 09-15-2024 ambulatory MARC Bhat[facility] Start: 09-06-2024 End: 09-06-2024 Telephone encounter [facility] Start: 08-29-2024 End: 09-04-2024 Refill Jaylan Gray [employer] Work Phone: [facility] Start: 08-28-2024 End: 08-28-2024 ambulatory [facility] Start: 08-28-2024 End: 08-28-2024 Transitional care manage srvc 7 day discharge Pam J [facility] METAL [employer]ER-[employer]PER Work Phone: [facility] Comment on above: Hypoglycemia (Primar y Dx); Need for influenza vaccination; Altered mental status, unspecified altered mental status type Start: 08-24-2024 End: 08-24-2024 Refill Jaylan Vicki Gray [employer]PER Work Phone: [facility] Start: 08-23-2024 End: 08-24-2024 ambulatory [facility] Start: 08-16-2024 End: 08-18-2024 Telephone encounter Delisa Torres RN [facility] Comment on above: Transition Of Care Start: 08-12-2024 End: 08-14-2024 Evaluation and management of inpatient MELY Patel [facility] Start: 06-25-2024 End: 06-27-2024 [facility] Start: 06-21-2024 End: 06-21-2024 ambulatory [facility] Start: 06-13-2024 End: 06-16-2024 Emergency department patient visit ALIDAKyara ALLEN [facility] Start: 06-13-2024 End: 2024 Evaluation and management of inpatient [facility] Start: 06-02-2024 End: 06-02-2024 ambulatory RICKS Joana TONI [facility] Start: 05-25-2024 ambulatory [facility] Start: 05-03-2024 End: 05-03-2024 ambulatory [facility] Start: 04-13-2024 End: 04-13-2024 [facility] Start: 03-16-2024 End: 03-17-2024 ambulatory [facility] Start: 03-09-2024 End: 03-09-2024 ambulatory [facility] Start: 03-02-2024 End: 03-02-2024 ambulatory [facility] Start: 02-29-2024 ambulatory [facility] Start: 02-27-2024 End: 02-29-2024 Emergency department patient visit [facility] Start: 02-18-2024 End: 02-18-2024 ambulatory [facility] Start: 02-09-2024 End: 02-10-2024 ambulatory [facility] Start: 02-09-2024 End: 02-09-2024 Office outpatient visit 25 minutes Pam Ley [employer] [facility] Comment on above: Acute cystitis witho ut hematuria (Primary Dx); Urge incontinence of urine Start: 02-09-2024 End: 02-09-2024 ambulatory [facility] Start: 01-10-2024 End: 01-10-2024 ambulatory SIMEON Ram [facility] Start: 01-04-2024 Refall Muñoz MD Work Phone: Stephany Carnes [facility] Comment on above: 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, unspecified estrogen receptor status ([facility]) Start: 12-15-2023 End: 12-15-2023 Office outpatient visit 25 minutes Pam Ley METAL [employer]ER-PE[employer]OPPER Work Phone: [facility] Comment on above: Upper respiratory tr act infection, unspecified type (Primary Dx); Normal pressure hydrocephalus (CMS-HCC); Moderate episode of recurrent major depressive disorder ([facility]); PVD (peripheral vascular disease) ([facility]); 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 mellitus ([facility]); Stage 3b chronic kidney disease ([facility]); Major depressive disorder in partial remission, unspecified whether recurrent ([facility]); Essential hypertension; GERD without esophagitis; 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 ([facility]) Start: 12-15-2023 End: 12-15-2023 ambulatory PAM Estrella LEY [facility] Start: 12-06-2023 Refill Pam haines [employer] Work Phone: [facility] Comment on above: Insomnia, unspecifie d type Start: 11-25-2023 End: 11-25-2023 Office outpatient visit 25 minutes Rambo Muñoz MD Work Phone: [facility] Comment on above: 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, unspecified estrogen receptor status ([facility]) (Primary Dx); 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 breast in female, estrogen receptor positive ([facility]) Start: 11-25-2023 End: 11-25-2023 ambulatory RAMBO MUÑOZ [facility] Start: 03-23-2023 End: 03-24-2023 ambulatory [facility] Start: 01-13-2023 End: 01-16-2023 [facility] Start: 01-13-2023 End: 01-15-2023 Subsequent hospital visit by physician Luna Daniels MD Work Phone: [facility] 3C Observation Comment on above: Arrived Severe aortic valve stenosis (Primary Dx); Type 2 diabetes mellitus with diabetic neuropathy, with long-term current use of insulin ([facility]); Tremors of nervous system; Family history of coronary arteriosclerosis; CHELSEA (obstructive sleep apnea) nonadherent with cpap; Stage 3a chronic kidney disease ([facility]); Coronary artery disease involving port gam[place] coronary artery of [place] heart without angina pectoris Aortic valve stenosi s, etiology of cardiac valve disease unspecified Start: 12-07-2022 End: 12-11-2022 ambulatory LUNA DANIELS [facility] Start: 12-07-2022 End: 12-11-2022 Subsequent hospital visit by physician Luna Daniels MD Work Phone: [facility] 5A Stepdown Comment on above: Severe aortic valve stenosis (Primary Dx) Start: 11-24-2022 End: 11-25-2022 ambulatory FLIP JHA [facility] Start: 11-24-2022 End: 11-24-2022 Subsequent hospital visit by physician Stmino [facility] [employer] Trimmer Rm B STVEstefanía [employer] Comment on above: Canceled (Case zulay llhenri) Start: 09-28-2022 End: 09-30-2022 Evaluation and management of inpatient CADEN Patel DANIEL [facility] Start: 03-31-2022 End: 04-01-2022 ambulatory Vale Bowser Facility:[facility] Start: 03-26-2021 End: 03-27-2021 ambulatory [facility] Start: 03-24-2021 End: 03-25-2021 ambulatory LAKESHIA HENRIQUEZ [facility] Start: 03-24-2021 End: 03-24-2021 Subsequent hospital visit by physician Caden [facility] Start: 03-19-2021 End: 03-20-2021 ambulatory PAM LEY Facility: Procedures Date Procedure Procedure Detail Performing Clinician Start: 08-28-2024 Adult depression scr eening assessment Pam Ley [employer] Work Phone: Start: 06-21-2024 Adult depression scr eening assessment Delisa Torres RN Start: 03-16-2024 Follow-up visit Follow-up VALE BOWSER Start: 03-09-2024 Follow-up visit Follow-up RAMBO MUÑOZ Start: 03-02-2024 Follow-up visit Follow-up PAM LEY Start: 02-09-2024 Urnls dip stick/tabl et rgnt non-auto w/o micrscp Pam Ley [employer] Work Phone: Start: 02-09-2024 Adult depression scr eening assessment Pam Ley [employer] Work Phone: Start: 12-15-2023 Adult depression scr eening assessment Pam Ley [employer]ER-[facility] Work Phone: Start: 08-17-2023 Adult depression scr eening assessment Rambo Muñoz MD Work Phone: Start: 01-13-2023 Brncdilat rspse spmt ry pre&post-brncdilat admn [facility] - [facility] Work Phone: Start: 01-13-2023 Ct angiography chest w/contrast/noncontrast Namrata Blair [employer] - [facility] Work Phone: Start: 12-11-2022 Glucose blood reagent strip Luna Daniels MD Work Phone: Start: 12-10-2022 Glucose blood reagent strip Luna Daniels MD Work Phone: Start: 12-10-2022 Glucose blood reagent strip Luna Daniels MD Work Phone: Start: 12-10-2022 Glucose blood reagent strip Luna Daniels MD Work Phone: Start: 12-10-2022 Basic metabolic pane l calcium total Rita J Durancarlottahossein [employer] - [facility] Work Phone: Start: 12-10-2022 Antibody screen Luna morales MD Work Phone: Start: 12-10-2022 End: 12-10-2022 Glucose blood reagent strip Luna Daniels MD Work Phone: Start: 12-09-2022 End: 12-09-2022 Blood count hemoglobin Luna Daniels MD Work Phone: Start: 12-09-2022 Glucose blood reagent strip Luna Daniels MD Work Phone: Start: 12-09-2022 End: 12-09-2022 Transfusion of packed red blood cells Radha Moya [employer] - [facility] Work Phone: Start: 12-09-2022 Glucose blood [...] 12-07-2022 Transfusion of packed red blood cells Luan Daniels MD Work Phone: Start: 12-07-2022 Dup-scan [...] 03-24-2021 Assay of blood/uric acid Lakeshia Henriquez [employer] - [employer] Work Phone: Plan of Treatment Date Care Activity Detail Author Start: 08-28-2025 Adult BMI Screening Adult BMI Screening [facility] [place] Start: 08-28-2025 Depression Screening Depression Screening [facility] [place] Start: 08-28-2025 Fall Risk Screening Fall Risk Screening [facility] [place] Start: 08-28-2025 Tobacco Screening Tobacco Screening [facility] [place] Start: 08-24-2025 Adult BMI Screening Adult BMI Screening [facility] [place] Start: 08-23-2025 Tobacco Screening Tobacco Screening [facility] [place] Start: 08-12-2025 Adult BMI Screening Adult BMI Screening [facility] [place] Start: 08-12-2025 Tobacco Screening Tobacco Screening [facility] [place] Start: 06-21-2025 Depression Screening Depression Screening [facility] [place] Start: 06-21-2025 Fall Risk Screening Fall Risk Screening [facility] [place] Start: 12-15-2024 Adult BMI Follow Up Plan Adult BMI Follow Up Plan [facility] [place] Start: 12-15-2024 Adult BMI Screening Adult BMI Screening [facility] [place] Start: 12-15-2024 Depression Screening Depression Screening [facility] [place] Start: 12-15-2024 Fall Risk Screening Fall Risk Screening [facility] [facility] Start: 12-15-2024 Tobacco Screening Tobacco Screening [facility] Start: 11-25-2024 Adult BMI Screening Adult BMI Screening [facility] Start: 09-28-2024 Tobacco Screening Tobacco Screening [facility] Start: 09-13-2024 End: 09-13-2024 Patient encounter procedure 09/13/2024 2:00 PM EDT Appointment [facility] [address] [place] [id number] [facility] Start: 09-08-2024 End: 09-08-2024 Patient encounter procedure 09/08/2024 2:15 PM EDT Office Visit [facility] On[facility] [address] [place] [address] Rambo Muñoz MD [address] [place] [address] Stephany L Coryell [facility] - Medical Oncology Start: 08-31-2024 Adult BMI Follow Up Plan Adult BMI Follow Up Plan [facility] Start: 08-17-2024 Depression Screening Depression Screening [facility] Start: 08-10-2024 Fall Risk Screening Fall Risk Screening [facility] Start: 08-10-2024 Medicare Annual Wellness Visit Medicare Annual Wellness Visit [facility] Start: 07-16-2024 Influenza vaccination Influenza Vaccine [facility] Start: 03-09-2024 End: 03-09-2024 Patient encounter procedure 03/09/2024 3:15 PM EDT Office Visit Stephanyneida Landaverde [facility] - Medical Oncology [address] [place] [address] Rambo Muñoz MD [address] [address] [place] [id number] Stephany L Akhil [facility] - Medical Oncology Start: 01-13-2024 End: 01-13-2024 Patient encounter procedure 01/13/2024 1:00 PM EST [facility] [address] [place] [phone] Pam Ley, METAL BALER-PELT DROPPER [address] [place] [phone] [facility] Start: 09-02-2023 Lipid panel Lipids [employer] Start: 02-02-2023 End: 02-02-2023 Patient encounter procedure 02/02/2023 Appointment IP Unit [facility] [facility] Start: 01-18-2023 End: 01-14-2024 Basic metabolic 2000 panel - Serum or Plasma Basic Metabolic Panel Lab STAT Severe aortic valve stenosis Expected: 01/18/2023, Expires: 01/14/2024 [employer] Work Phone: Comment on above: Expected: 01/18/2023, Expires: 4 Start: 12-17-2022 End: 12-10-2023 Basic metabolic 2000 panel - Serum or Plasma Basic Metabolic Panel Lab Routine Severe aortic valve stenosis Expected: 12/17/2022, Expires: 12/10/2023 [facility] [employer] Phone: Comment on above: Expected: 12/17/2022, Expires: 4 Start: 12-17-2022 End: 12-10-2023 Hemoglobin and Hematocrit Hemoglobin and Hematocrit Lab Routine Severe aortic valve stenosis Expected: 12/17/2022, Expires: 12/10/2023 [employer] Phone: Comment on above: Expected: 12/17/2022, Expires: Start: 09-28-2022 Annual Wellness Visit (AWV) Annual Wellness Visit (AWV) [facility] [employer] Start: 07-16-2021 Influenza vaccination Flu vaccine (Season Ended) [employer] Phone: Start: 04-01-2021 COVID-19 Vaccine (3 - Booster for Pfizer series) COVID-19 Vaccine (3 - Booster for Pfizer series) [facility] Start: 03-04-2021 COVID-19 Vaccine (3 - Pfizer risk series) COVID-19 Vaccine (3 - Pfizer risk series) [facility] [employer] [facility] Start: 1996 Shingles vaccine (1 of 2) Shingles vaccine (1 of 2) [facility] Start: 1965 Administration of varicella zoster vaccine Zoster (Shingles) Vaccine (1 of 2) [facility] [employer] [facility] Start: 1965 DTaP,Tdap and Td Vaccines (1 - Tdap) DTaP,Tdap and Td Vaccines (1 - Tdap) [facility] [employer] [facility] Start: 1965 DTaP/Tdap/Td vaccine (1 - Tdap) DTaP/Tdap/Td vaccine (1 - Tdap) [facility] Start: 1964 Hepatitis C screening Hepatitis C screen [employer] Start: 1962 COVID-19 Vaccine (1) COVID-19 Vaccine (1) [employer] Phone: Start: 1958 Depression Screen Depression Screen [employer] Start: 1946 Creatinine measurement Creatinine monitoring [employer] Phone: Start: 1946 Potassium monitoring Potassium monitoring [employer] Phone: End: 02-08-2025 Bacteria identified in Urine by Culture Urine culture (clean catch) Microbiology Routine Acute cystitis without hematuria 1 Occurrences starting 02/09/2024 until 02/08/2025 [employer] Phone: Comment on above: 1 Occurrences starting 02/09/2024 until 02/08/2025 End: 12-07-2022 Blood Bank Specimen [employer] Phone: Comment on above: Once for 1 Occurrences starting 12/07/19 23 until 12/07/2022 End: 11-25-2024 Cancer antigen 15-3 Cancer antigen 15-3 Lab Routine 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 female breast, unspecified estrogen receptor status (CMS-HCC) every 3 months for 50 Occurrences starting 11/25/2023 until 11/25/2024 [employer] Comment on above: every 3 months for 50 Occurrences starti ng 11/25/2023 until 11/25/2024 End: 11-25-2024 Cancer antigen 27-29 Cancer antigen 27-29 Lab Routine 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 female breast, unspecified estrogen receptor status (CMS-HCC) every 3 months for 50 Occurrences starting 11/25/2023 until 11/25/2024 [employer] Comment on above: every 3 months for 50 Occurrences starti ng 11/25/2023 until 11/25/2024 End: 11-24-2022 Catheterization and angiography procedure details panel Cardiac Catheterization Cardiac Cath Routine One Time for 1 Occurrences starting 11/24/2022 until 11/24/2022 [employer] Phone: Comment on above: One Time for 1 Occurrences starting 11/15 until 11/24/2022 End: 12-07-2022 Catheterization and angiography procedure details panel Cardiac Catheterization Cardiac Cath Routine One Time for 1 Occurrences starting 12/07/2022 until 12/07/2022 [employer] Phone: Comment on above: One Time for 1 Occurrences starting 11/16 until 12/07/2022 End: 11-25-2024 CBC W Auto Differential panel - Blood CBC with auto diff Lab Routine 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 female breast, unspecified estrogen receptor status (CMS-HCC) every 3 months for 50 Occurrences starting 11/25/2023 until 11/25/2024 [employer] Work Phone: Comment on above: every 3 months for 50 Occurrences starti ng 11/25/2023 until 11/25/2024 End: 11-25-2024 Comprehensive metabolic 2000 panel - Serum or Plasma Comprehensive metabolic panel Lab Routine 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 female breast, unspecified estrogen receptor status (CMS-HCC) every 3 months for 50 Occurrences starting 11/25/2023 until 11/25/2024 [employer] Comment on above: every 3 months for 50 Occurrences starti ng 11/25/2023 until 11/25/2024 End: 01-13-2023 CT CARDIAC W C STC MORP CARD ONLY [employer] Phone: Comment on above: 1 Occurrences starting 01/13/2023 until 01/13/2023 End: 12-07-2022 EKG 12 lead EKG 12 lead ECG Routine One Time for 1 Occurrences starting 12/07/2022 until 12/07/2022 [employer] Phone: Comment on above: One Time for 1 Occurrences starting 11/16 until 12/07/2022 Glucose [Mass/volume ] in Serum or Plasma POCT glucose Point of Care Testing Routine 4X Daily (AC & HS) until discontinued starting 12/07/2022 [employer] Phone: Comment on above: 4X Daily (AC & HS) until discontinued st arting 12/07/2022 End: 12-10-2022 Hemoglobin and Hematocrit Hemoglobin and Hematocrit Lab STAT Post Transfusion Post Transfusion Post Transfustion for 1 Occurrences starting 12/09/2022 until 12/10/2022 [employer] Phone: Comment on above: Post Transfusion Post Transfusion Post T ransfustion for 1 Occurrences starting 12/09/2022 until 12/10/2022 Oxygen therapy [Mini mum Data Set] Initiate Oxygen Therapy Protocol Respiratory Care Routine As Needed until discontinued starting 11/24/2022 [employer] Phone: Comment on above: As Needed until discontinued starting Oxygen therapy [Mini mum Data Set] Initiate Oxygen Therapy Protocol Respiratory Care Routine As Needed until discontinued starting 12/07/2022 [employer] Phone: Comment on above: As Needed until discontinued starting Oxygen therapy [Mini mum Data Set] Initiate Oxygen Therapy Protocol Respiratory Care Routine As Needed until discontinued starting 12/07/2022 [employer] Comment on above: As Needed until discontinued starting End: 11-24-2022 POC CHEM8 INCLUDES CALC. ANION GAP POC CHEM8 INCLUDES CALC. ANION GAP Point of Care Testing STAT One Time for 1 Occurrences starting 11/24/2022 until 11/24/2022 [employer] Phone: Comment on above: One Time for 1 Occurrences starting 11/15 until 11/24/2022 End: 12-07-2022 POC CHEM8 INCLUDES CALC. ANION GAP POC CHEM8 INCLUDES CALC. ANION GAP Point of Care Testing STAT One Time for 1 Occurrences starting 12/07/2022 until 12/07/2022 [employer] Phone: Comment on above: One Time for 1 Occurrences starting 11/16 until 12/07/2022 End: 12-07-2022 PREPARE RBC (CROSSMATCH), 1 Units PREPARE RBC (CROSSMATCH), 1 Units Blood Bank STAT Once for 1 Occurrences starting 12/07/2022 until 12/07/2022 [employer] Phone: Comment on above: Once for 1 Occurrences starting 12/07/19 until 12/07/2022 End: 12-08-2022 PREPARE RBC (CROSSMATCH), 1 Units PREPARE RBC (CROSSMATCH), 1 Units Blood Bank Routine Once for 1 Occurrences starting 12/08/2022 until 12/08/2022 [employer] Phone: Comment on above: Once for 1 Occurrences starting 12/08/19 until 12/08/2022 End: 12-09-2022 PREPARE RBC (CROSSMATCH), 1 Units PREPARE RBC (CROSSMATCH), 1 Units Blood Bank Routine Once for 1 Occurrences starting 12/09/2022 until 12/09/2022 [employer] Phone: Comment on above: Once for 1 Occurrences starting 12/09/19 until 12/09/2022 End: 12-08-2022 PREVIOUS SPECIMEN [employer] Work Phone: Comment on above: Once for 1 Occurrences starting 12/08/19 until 12/08/2022 Immunizations Immunization Date Immunization Notes Care Provider [facility] 08-28-2024 Seasonal trivalent influenza vaccine, adjuvanted, preservative free Pam Ley APRN-PELT DROPPER Work Phone: [facility] [employer] 08-28-2024 Immunization, In Clinic,; Translations: [Drug or medicament (substance)] Pam Ley METAL BALER-PELT DROPPER Work Phone: [facility] 08-10-2023 Influenza Vaccine, Quadrivalent, Adjuvanted Rambo Muñoz MD Work Phone: [facility] 08-10-2023 influenza virus vacc ine, unspecified formulation Delisa Torres RN [facility] 08-06-2022 Influenza Vaccine, Quadrivalent, Adjuvanted Rambo Muñoz MD Work Phone: [facility] 08-27-2021 influenza, high dose seasonal, preservative-free Rambo Muñoz MD Work Phone: [facility] 05-28-2021 pneumococcal conjuga te vaccine, 13 valent Rambo Muñoz MD Work Phone: [facility] 02-04-2021 COVID-19, mRNA, LNP- S, PF, 30mcg/0.3mL Dose Rambo Muñoz MD Work Phone: [facility] 01-07-2021 COVID-19, mRNA, LNP- S, PF, 30mcg/0.3mL Dose Rambo Muñoz MD Work Phone: [facility] 11-25-2020 influenza, injectabl e, quadrivalent, preservative free Rambo Muñoz MD Work Phone: [facility] 08-30-2020 Influenza, High-dose , Quadrivalent Rambo Muñoz MD Work Phone: [facility] 09-14-2019 influenza, injectabl e, quadrivalent, contains preservative Rambo Muñoz MD Work Phone: [facility] 09-11-2019 influenza, injectabl e, quadrivalent, preservative free Rambo Muñoz MD Work Phone: [facility] 08-31-2018 influenza, injectabl e, quadrivalent, preservative free Rambo Muñoz MD Work Phone: [facility] 09-07-2017 influenza, injectabl e, quadrivalent, preservative free Rambo Muñoz MD Work Phone: [facility] 07-10-2015 pneumococcal polysaccharide vaccine, 23 valent Rambo Muñoz MD Work Phone: [facility] Payers Date Payer Category Payer Medicare [facility] MEDICARE ANTH MEDICARE ADVANTAGE [id number] 2022-[facility] [phone] [address] [place] [address] [id number] 2022 Medicare HMO AN[employer]M MEDICARE [id number] 2022 Medicare [id number] [id number]. [id number] 2022 Medicare [id number] 2022 Medicaid [id number] [id number]. [id number] 2017 Medicaid [id number] 2017 Unknown [id number] 1959 Medicaid [id number] 1946 Unknown [id number] 2.16.840.1.067806.3.579.2.593 1946 Unknown [id number] 2.16.840.1.111281.3.579.2.647 1946 Unknown [id number] 2.16.840.1.046476.3.579.2.175 1946 Unknown [id number] 2.16.840.1.782440.3.579.2.175 1946 Unknown [id number] 2.16.840.1.766202.3.579.2.175 1946 Unknown [id number] 2.16.840.1.354541.3.579.2.175 1946 Unknown [id number] 2.16.840.1.769659.3.579.2.175 1946 Unknown [id number] 2.16.840.1.338449.3.579.2.175 1946 Unknown [id number] 2.16.840.1.795149.3.579.2.175 1946 Unknown [id number] 2.16.840.1.921470.3.579.2.175 1946 Unknown [id number] 2.16.840.1.412187.3.579.2.1285 1946 Unknown [id number] 2.16.840.1.667360.3.579.2.128 1946 Unknown [id number] 2.16.840.1.788641.3.579.2.1285 1946 Unknown [id number] 2.16.840.1.274947.3.579.2.1285 1946 Unknown [id number] 2.16.840.1.502240.3.579.2.1285 1946 Unknown [id number] 2.16.840.1.748820.3.579.2.1285 1946 Unknown [id number] 2.16.840.1.186228.3.579.2.1285 1946 Unknown [id number] 2.16.840.1.804142.3.579.2.1285 1946 Unknown [id number] 2.16.840.1.013682.3.579.2.1285 1946 Unknown [id number] 2.16.840.1.211103.3.579.2.1285 1946 Unknown [id number] 2.16.840.1.122751.3.579.2.1285 1946 Unknown [id number] 2.16.840.1.292540.3.579.2.1285 1946 Unknown [id number] 2.16.840.1.082634.3.579.2.1285 1946 Unknown [id number] 2.16.840.1.504364.3.579.2.1285 1946 Unknown [id number] 2.16.840.1.920147.3.579.2.1285 1946 Unknown [id number] 2.16.840.1.821402.3.579.2.1285 1946 Unknown [id number] 2.16.840.1.619238.3.579.2.1285 1946 Unknown [id number] 2.16.840.1.558322.3.579.2.1285 1946 Unknown [id number] 2.16.840.1.092419.3.579.2.1285 1946 Unknown [id number] 2.16840.1.095126.3.579.2.1285 1946 Unknown [id number] 2.16840.1.314885.3.579.2.1285 1946 Unknown [id number] 2.16840.1.984517.3.579.2.1285 1946 Unknown [id number] 2.16840.1.722966.3.579.2.1285 1946 Unknown [id number] 2.16840.1.722839.3.579.2.1285 1946 Unknown [id number] 2.16840.1.780590.3.579.2.1285 1946 Unknown [id number] 2.16840.1.714103.3.579.2.1286 Social History Date Type Detail Facility Start: 10-15-2014 End: 10-05-2022 Tobacco smoking status [facility]IS Never smoker [facility] Start: 10-15-2014 End: 08-28-2024 Alcohol intake Current non-drinker of alcohol (finding) [facility] [employer] Work Phone: Start: 10-02-2014 Alcohol Comment occaisional [employer] Phone: Start: 1945 Sex Assigned At Not on file [employer] Phone: Start: 11-14-2022 End: 12-07-2022 Exposure to SARS-CoV-2 (event) Not sure [facility] Start: 10-05-2022 Tobacco use and exposure Smokeless tobacco [facility] Start: 10-05-2022 End: 08-23-2024 [facility] of [facility] Start: 10-05-2022 End: 08-23-2024 Social connection and isolation panel [facility] Do you belong to any clubs or organizations such as sabianism groups, unions, fraternal or athletic groups, or school groups? Yes [facility] Are you now , , , , never or living with a partner? Never [facility] How often to you hav e a drink containing alcohol? Never [facility] How many standard dr inks containing alcohol do you have on a typical day? Patient does not drink [facility] Do you feel stress - tense, restless, nervous, or anxious, or unable to sleep at night because your mind is troubled all the time - these days [OSQ] Not at all [facility] Start: 03-21-2020 Gender identity Identifies as female gender (finding) [facility] Start: 10-05-2022 Sexual orientation Heterosexual (finding) [facility] Has the [employer], [employer], or [employer] threatened to shut off services in your home in past 12Mo No [facility] Start: 06-20-2015 Sex Female (finding) [facility] Medical Equipment Procedure Code Equipment Code Equipment Origin al Text Equipment Identifier Dates Valve Aor Evolut Fx 26mm - [id number] - [id number] Start: 08-17-2023 [id number] Start: 10-11-2020 USE FOUR TIMES A DAY. ICD 10 E11.29 [id number] Start: 08-31-2022 4 applicators by miscellaneous route See Admin Instructions. 4 times daily injection [id number] Start: 04-21-2021 Goals Date Patient Goal Desired [...] stairs Contact your local community or senior seas[facility] for information on exercise, fall prevention programs, or options for improving home safety. Personal health goal Comment on above: Formatting of this n ote might be different from the original. Evaluation of progress towards goal: Safe dc transition to SNF pending clinical course. Personal health goal Comment on above: Formatting of this n ote might be different from the original. Evaluation of progress towards goal: Patient lives with daughter and grandson. Daughter is not employed and receives disability. She cooks, cleans and helps patient shower. Clinical Notes 03-20-2021 to 09-06-2024 Telephone Encounter - Alice Morrison CMA - 09/06/2024 3:15 PM EDTTelephone Encounter - KAIDEN Werner - 09/06/2024 3:15 PM EDTKAIDEN Werner - 08/28/2024 8:00 AM EDT Note Date & Type Note Facility 09-06-2024 Miscellaneous Notes [facility] called to see if you could send in nystatin ( 60g bottle) for this pt , pt has excoriated abdomen folds ,flacky red fungal odor , she did educate pt , also stated the right side is worse than the left side done documented in this encounter [employer] 09-06-2024 Telephone encounter Note [facility] called to see if you could send in nystatin ( 60g bottle) for this pt , pt has excoriated abdomen folds ,flacky red fungal odor , she did educate pt , also stated the right side is worse than the left side [facility] 09-06-2024 Telephone encounter [facility] done [facility] 08-28-2024 History of Present illness Narrative Transition of Care (*required) Additional Questions/Concerns Requiring PCP Follow-Up: Patient's DC med list has her taking 15 units of Levemir nightly She says she takes 10 units nightly as needed Did not take any last pm BS ranging 267-345 since discharge Has appt with you on Tuesday 08/28 This documentation is being used for Transition of Care purposes: Yes Goal: Patient will demonstrate a safe transition from hospital to home Diagnosis on Discharge: Hypoglycemia AMS Discharge Specialty: Endocrine Name of Discharging Facility: [facility] Date of Facility Discharge: Admitted: 08/23/24 Discharged: 08/24/24 Date of Interactive Contact and Name of Dictating Machine Transcriber: 08/25/24 Spoke with patient's daughterIleana Medication Review Completed: Yes CHANGE how you take: insulin detemir U-100 (LEVEMIR) Medication Reconciliation Questions/Concerns: *Follow Up Appointments with Providers: Primary: KAIDEN Werner: 08/28/24 Specialty: Endocrinology (Christiano): TBD Review of Pending Lab/Diagnostic Tests and Plan for Completion: Assessment and Support of Treatment Regimen Adherence and Medication Management: Lives with daughter who cooks, cleans and assists with ADLs, transportation, and medications BS ranging 267/345 since DC Wears Dexcom Denies need for any supplies Follows diabetic diet Mental status has improved, more alert, less sluggish Denies shakiness Denies diaphoresis Denies MICHEL Denies nausea Denies dizziness Education Provided by ACN to Support Self-Management, Independent Living and ADLs: Discharge instructions reviewed Communication with Home Health Agencies and Other Services Utilized/Needed by the Patient: [facility] SOC: not scheduled at this time Subjective Patient ID: Cuca Goodwin is a 79 y.o. female. The patient is here today for discharge follow up from hospital. Transition of Care Med Rec completed? Yes Discharged medications: Medications have been reviewed and reconciled with the most recent facility discharge document. Discharged from [facility] on 08-24-24 Patient is accompanied by her daughter today. States daughter administered her insulin. Patient forgot she already received and she administered insulin as well. Subsequently, blood sugar dropped and developed altered mental status. Daughter states blood sugar did not register as it was very low. She called the squad for ER transport for evaluation. Type 2 DM is managed by endocrine, Zainab Hernandez. The following portions of the patient's history were reviewed and updated as appropriate: allergies, current medications, past family history, past medical history, past social history, past surgical history, problem list, and medication reconciliation was completed including current medication and post discharge medication. Review of Systems Constitutional: Negative for chills and fever. HENT: Negative. Eyes: Negative for visual disturbance. Respiratory: Negative for chest tightness and shortness of breath. Cardiovascular: Negative for chest pain and palpitations. Gastrointestinal: Negative. Endocrine: Negative. Genitourinary: Negative for menstrual problem and pelvic pain. Musculoskeletal: Positive for arthralgias. Skin: Negative. Allergic/Immunologic: Negative. Neurological: Negative for syncope and facial asymmetry. Hematological: Does not bruise/bleed easily. Psychiatric/Behavioral: Negative. Objective Physical Exam Vitals and nursing note reviewed. [...] Content: Thought content normal. Judgment: Judgment normal. Assessment/Plan Cuca was seen today for tcm . Diagnoses and all orders for this visit: Hypoglycemia Need for influenza vaccination - Influenza, Trivalent, Adjuvanted Altered mental status, unspecified altered mental status type Blood sugars have stabilized States daughter administered her insulin. Patient forgot she already received and she administered insulin as well. Subsequently, blood sugar dropped and developed altered mental status. Daughter states blood sugar did not register as it was very low. She called the [facility] for ER transport for evaluation. Type 2 DM is managed by endocrine, Zaianb Hernandez. Influenza vaccine administered today Follow up 5 months Sooner if needed KAIDEN Werner 08/28/24 0902 documented in this encounter [facility] 08-16-2024 Miscellaneous Notes Do you still need a TCM on this patient? She currently has COVID-19. I am going to say not at this time documented in this encounter [facility] 08-16-2024 Telephone encounter Note Do you still need a TCM on this patient? [facility] 08-16-2024 Telephone encounter Note She currently has COVID-19. I am going to say not at this time [facility] 08-16-2024 Miscellaneous Notes Transition of Care (*required) *Additional Questions/Concerns Requiring PCP Follow-Up: -Patient does not have CELI appointment scheduled This documentation is being used for Transition of Care purposes: Yes Goal: Patient will demonstrate a safe transition from hospital to home Diagnosis on Discharge: DISCHARGE DIAGNOSES Principal Problem: Acute respiratory failure with hypoxia and hypercapnia ([facility]) Active Problems: PVD (peripheral vascular disease) ([facility]) Mixed diabetic hyperlipidemia associated with type 2 diabetes mellitus ([facility]) Obstructive sleep apnea syndrome Essential (primary) hypertension Acute cystitis without hematuria Stage 3b chronic kidney disease ([facility]) Sepsis without acute organ dysfunction ([facility]) Iron deficiency anemia secondary to inadequate dietary iron intake COVID-19 virus infection Discharge Specialty: Other *Name of Discharging Facility: [facility] Date of Facility Discharge: Admission 08/12/24 Discharge 08/14/24 Date of Interactive Contact and Name of Dictating Machine Transcriber: 08/16/24 10:22 am Spoke to patients molina Tejeda *Medication Review Completed: No START taking: amoxicillin-pot clavulanate (AUGMENTIN) predniSONE (DELTASONE) Medication Reconciliation Questions/Concerns: -Reviewed discharge changes to medications -Declines medications review -Patients daughter picked up medications and patient started taking as prescribed -Denies questions or concerns *Follow Up Appointments with Providers: Primary: KAIDEN Werner Specialty: Specialty: Specialty: Review of Pending Lab/Diagnostic Tests and Plan for Completion: NA Assessment and Support of Treatment Regimen Adherence and Medication Management: -Spoke to patients molina Tejeda. She states she now has Covid. She states they are staying in Isolation until 08/23/24. She states she has received a call from Home Care. She states they are going to wait until next week to have home care start. She states patient does not have cough, SOB, and chest pain. Denies new or worsening symptoms -Denies questions or concerns Education Provided by ACN to Support Self-Management, Independent Living and ADLs: -Reviewed discharge instructions -call the office for questions, concerns, new, worsening or recurring S/S -Call 911 or go to ED for urgent issues such as chest pain or sudden dyspnea -Verbalizes understanding of above Communication with Home Health Agencies and Other Services Utilized/Needed by the Patient: NA Patient currently has COVID so she will pass on this one. documented in this encounter [facility] [place] 08-16-2024 Telephone encounter Note Transition of Care (*required) *Additional Questions/Concerns Requiring PCP Follow-Up: -Patient does not have CELI appointment scheduled This documentation is being used for Transition of Care purposes: Yes Goal: Patient will demonstrate a safe transition from hospital to home Diagnosis on Discharge: DISCHARGE DIAGNOSES Principal Problem: Acute respiratory failure with hypoxia and hypercapnia ([facility]) Active Problems: PVD (peripheral vascular disease) ([facility]) Mixed diabetic hyperlipidemia associated with type 2 diabetes mellitus ([facility]) Obstructive sleep apnea syndrome Essential (primary) hypertension Acute cystitis without hematuria Stage 3b chronic kidney disease ([facility]) Sepsis without acute organ dysfunction ([facility]) Iron deficiency anemia secondary to inadequate dietary iron intake COVID-19 virus infection Discharge Specialty: Other *Name of Discharging Facility: [facility] Date of Facility Discharge: Admission 08/12/24 Discharge 08/14/24 Date of Interactive Contact and Name of Dictating Machine Transcriber: 08/16/24 10:22 am Spoke to patients daughter Ileana *Medication Review Completed: No START taking: amoxicillin-pot clavulanate (AUGMENTIN) predniSONE (DELTASONE) Medication Reconciliation Questions/Concerns: -Reviewed discharge changes to medications -Declines medications review -Patients daughter picked up medications and patient started taking as prescribed -Denies questions or concerns *Follow Up Appointments with Providers: Primary: Pam Ley APRN-BARTOLO Specialty: Specialty: Specialty: Review of Pending Lab/Diagnostic Tests and Plan for Completion: NA Assessment and Support of Treatment Regimen Adherence and Medication Management: -Spoke to patients daughter Ileana. She states she now has Covid. She states they are staying in Isolation until 08/23/24. She states she has received a call from Home Care. She states they are going to wait until next week to have home care start. She states patient does not have cough, SOB, and chest pain. Denies new or worsening symptoms -Denies questions or concerns Education Provided by ACN to Support Self-Management, Independent Living and ADLs: -Reviewed discharge instructions -call the office for questions, concerns, new, worsening or recurring S/S -Call 911 or go to ED for urgent issues such as chest pain or sudden dyspnea -Verbalizes understanding of above Communication with Home Health Agencies and Other Services Utilized/Needed by the Patient: NA [facility] [place] 08-16-2024 Telephone encounter Note Patient currently has COVID so she will pass on this one. [facility] [place] 06-25-2024 Note XR CHEST 1 VW Procedure: Chest x-ray performed Number of views:AP portable erect History:Hypoglycemia Comparison:06/13/2024 Findings: The heart and mediastinal silhouette are stable. There are no focal consolidations or effusions. The pulmonary vasculature is normal. There is no pneumothorax. Impression: No acute process. Finalized by Pina Fatima DO on 06/25/2024 10:40 PM [facility] 03-16-2024 Note SUBJECTIVE: Chief complaint: NPH with RECREATION COUNSELOR shunt, recent stroke. History of present illness: Was hospitalized at outside hospital few days ago when she had experienced abrupt onset of dysarthria as well as facial droop. Was seen at [facility]. Providers there had requested an MRI of the brain and were told by [facility] neurosurgery that she could have an MRI [...] medication for this. Had CT brain and RECREATION COUNSELOR shunt series completed today. Review of systems: As in HPI. Past Medical History: Diagnosis Date Aortic stenosis Asthma Atrial fibrillation (CMS/HCC) Cancer (CMS/HCC) 02/2023 right breast, metastatic Cataract CKD (chronic kidney disease) Coronary artery disease Depression Diabetes mellitus ([facility]) Dyslipidemia GERD (gastroesophageal reflux disease) Hypertension NPH (normal pressure hydrocephalus) (CMS/HCC) PVD (peripheral vascular disease) ([facility]) Sleep apnea Past Surgical History: Procedure Laterality [...] cefuroxime cholecalciferol (vitamin D3) clopidogrel Dexcom G6 Marketing [employer] [facility] Dexcom G6 Transmitter device ferrous sulfate FreeStyle Kartik 14 Day [place] [facility] FreeStyle Kartik 14 Day Sensor kit furosemide gabapentin hydroCHLOROthiazide insulin lispro lancets misc letrozole Levemir FlexPen insulin pen melatonin capsule metoprolol tartrate miscellaneous medical supply mis mupirocin ONETOUCH ULTRA BLUE TEST STRIP [facility] OneTouch Ultra Test strip oxybutynin pantoprazole pen [...] sugar diagnostic (ONETOUCH ULTRA BLUE TEST STRIP [facility]), OneTouch Ultra Blue Test Strip, Disp: [...] the morning., Disp: , Rfl: Dexcom G6 [employer] [facility], See administration instructions., Disp: , Rfl: Dexcom G6 Transmitter device, CHANGE EVRY 90 DAYS., Disp: , Rfl: ferrous sulfate 325 (65 Fe) MG EC tablet, Take 325 mg by mouth., Disp: , Rfl: FreeStyle Kartik reader (FreeStyle Kartik 14 Day [place]) misc, FreeStyle Kartik 14 Day [place], Disp: , Rfl: FreeStyle Kartik sensor system (FreeStyle Kartik 14 Day Sensor) kit, FreeStyle Kartik 14 Day Sensor kit, Disp: , Rfl: furosemide (Lasix) 20 mg tablet, Take 20 mg by mouth in the morning., Disp: , Rfl: gabapentin (Neurontin) 300 mg capsule, TAKE 1 CAPSULE (300 MG TOTAL) BY MOUTH IN T (more content not included)... [place] 02-09-2024 History of Present illness Narrative Images from the original note were not included. [address] [place] [address] SUBJECTIVE: Patient ID: Cuca Goodwin is a 78 y.o. female. Chief Complaint Patient presents with incontinence Accompanied by daughter today Urine is cloudy, increased incontinence. Concerns for reoccurrence of UTI. Patient was hospitalized at [facility] in September 2023 for UTI. Uses Purewick [...] 10/17/2019 Performed by Sang Bell DO at [facility] HYSTEROSCOPY DILATION CURETTAGE MYOSURE N/A 01/29/2021 Performed by Jv Briones MD at [facility] INJECTION BLOCK EPIDURAL CAUDAL STEROID N/A 08/14/2022 Performed by Arnulfo Gonzalez MD at [facility] INJECTION BLOCK EPIDURAL CAUDAL STEROID N/A 06/06/2021 Performed by Arnulfo Gonzalez MD at [facility] INJECTION BLOCK EPIDURAL CAUDAL STEROID N/A 04/25/2021 Performed by Arnulfo Gonzalez MD at [facility] INJECTION CAUDAL EPIDURAL WITH CATHETER, STEROID N/A 05/03/2020 Performed by Arnulfo Gonzalez MD at [facility] INJECTION CAUDAL EPIDURAL WITH CATHETER, STEROID N/A 11/24/2019 Performed by Arnulfo Gonzalez MD at [facility] INJECTION CAUDAL EPIDURAL WITH CATHETER, STEROID N/A 04/21/2019 Performed by Arnulfo Gonzalez MD at [facility] MEDIAL BRANCH NERVE BLOCK Bilateral L 4/5, 5/1 Bilateral 08/18/2019 Performed by Arnulfo Gonzalez MD at [facility] INJECTION MEDIAL BRANCH NERVE BLOCK Bilateral L 4/5, 5/1 Bilateral 06/23/2019 Performed by Arnulfo Gonzalez MD at [facility] STEROID EPI 1 WITH SEDATION Right L 4, 5 NR Right 03/17/2019 Performed by Arnulfo Gonzalez MD at [facility] INJECTION STEROID EPI 1 WITH SEDATION: right L45 nroot Right 08/15/2018 Performed by Arnulfo Gonzalez MD at [facility] LEFT L4, AND 5 NERVE ROOT INJECTION 2 OF 2 Left 07/22/2018 Performed by Arnulfo Gonzalez MD at [facility] LEFT L4, AND L5 NERVE ROOT 1 OF 2 Left 07/04/2018 Performed by Arnulfo Gonzalez MD at [facility] PERCUTANEOUS CORONARY INTERVENTION SHUNT INSERTION TONSILLECTOMY AGE 4 Transcutaneous aortic valve replacement/Transfemoral/Kwan N/A 08/17/2023 Performed by Chava Norris MD at [facility]ATH [facility] Valvuloplasty aortic N/A 06/03/2023 Performed by Chava Norris MD at [facility]ATH [facility] Past Medical History: Diagnosis Date Anemia Arthritis Asthma very mild, no inhaler use Cataract Dental disease Depression Diabetes mellitus ([facility]) Diabetes mellitus type 2, controlled ([facility]) Encephalitis Foot fracture, left GERD (gastroesophageal reflux disease) Heart murmur HLD (hyperlipidemia) Hypertension Incontinence Injury of back Insulin dependent diabetes mellitus Kidney failure STAGE 4 Lumbar spondylolysis Murmur Obesity CHELSEA (obstructive sleep apnea) no machine Peptic ulceration Peripheral vascular disease ([facility]) Shortness of breath TIA (transient ischemic attack) [...] Werner 02/09/24 1420 documented in this encounter [facility] 12-15-2023 History of Present illness Narrative Images from the original note were not included. [address] [place] [address] SUBJECTIVE: Patient ID: Cuca Goodwin is [...] 10/17/2019 Performed by Sang Bell DO at [facility] HYSTEROSCOPY DILATION CURETTAGE MYOSURE N/A 01/29/2021 Performed by Jv Briones MD at [facility] INJECTION BLOCK EPIDURAL CAUDAL STEROID N/A 08/14/2022 Performed by Arnulfo Gonzalez MD at [facility] INJECTION BLOCK EPIDURAL CAUDAL STEROID N/A 06/06/2021 Performed by Arnulfo Gonzalez MD at [facility] INJECTION BLOCK EPIDURAL CAUDAL STEROID N/A 04/25/2021 Performed by Arnulfo Gonzalez MD at [facility] INJECTION CAUDAL EPIDURAL WITH CATHETER, STEROID N/A 05/03/2020 Performed by Arnulfo Gonzalez MD at [facility] INJECTION CAUDAL EPIDURAL WITH CATHETER, STEROID N/A 11/24/2019 Performed by Arnulfo Gonzalez MD at [facility] INJECTION CAUDAL EPIDURAL WITH CATHETER, STEROID N/A 04/21/2019 Performed by Arnulfo Gonzalez MD at [facility] INJECTION MEDIAL BRANCH NERVE BLOCK Bilateral L 4/5, 5/1 Bilateral 08/18/2019 Performed by Arnulfo Gonzalez MD at [facility] INJECTION MEDIAL BRANCH NERVE BLOCK Bilateral L 4/5, 5/1 Bilateral 06/23/2019 Performed by Arnulfo Gonzalez MD at [facility] INJECTION STEROID EPI 1 WITH SEDATION Right L 4, 5 NR Right 03/17/2019 Performed by Arnulfo Gonzalez MD at [facility] INJECTION STEROID EPI 1 WITH SEDATION: right L45 nroot Right 08/15/2018 Performed by Arnulfo Gonzalez MD at [facility] LEFT L4, AND 5 NERVE ROOT INJECTION 2 OF 2 Left 07/22/2018 Performed by Arnulfo Gonzalez MD at [facility] LEFT L4, AND L5 NERVE ROOT 1 OF 2 Left 07/04/2018 Performed by Arnulfo Gonzalez MD at [facility] PERCUTANEOUS CORONARY INTERVENTION SHUNT INSERTION TONSILLECTOMY AGE 4 Transcutaneous aortic valve replacement/Transfemoral/Kwan N/A 08/17/2023 Performed by Chava Norris MD at [facility]ATH [facility] Valvuloplasty aortic N/A 06/03/2023 Performed by Chava Norris MD at [facility]ATH [facility] Past Medical History: Diagnosis Date Anemia Arthritis Asthma very mild, no inhaler use Cataract Dental disease Depression Diabetes mellitus ([facility]) Diabetes mellitus type 2, controlled ([facility]) Encephalitis Foot fracture, left GERD (gastroesophageal reflux disease) Heart murmur HLD (hyperlipidemia) Hypertension Incontinence Injury of back Insulin dependent diabetes mellitus Kidney failure STAGE 4 Lumbar spondylolysis Murmur Obesity CHELSEA (obstructive sleep apnea) no machine Peptic ulceration Peripheral vascular disease ([facility]) Shortness of breath TIA (transient ischemic attack) [...] needed (cough and congestion). Normal pressure hydrocephalus ([facility]) Moderate episode of recurrent major depressive disorder ([facility]) PVD (peripheral vascular disease) ([facility]) 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 mellitus ([facility]) - gabapentin (NEURONTIN) 300 mg capsule; Take 1 capsule (300 mg total) by mouth in the morning and 1 capsule (300 mg total) before bedtime. Stage 3b chronic kidney disease ([facility]) Major depressive disorder in partial remission, unspecified whether recurrent ([facility]) - sertraline (ZOLOFT) 100 mg tablet; Take [...] stage 3b chronic kidney disease and hypertension ([facility]) - SITagliptin phosphate (JANUVIA) 50 mg tablet; Take 1 tablet (50 mg total) by mouth in the morning. Type 2 DM -Managed by endocrine in [place] She believes her A1c is below 7% [...] for sore throat. Tylenol as needed per websphere consultant guidelines for fever or pain. Body [...] Werner 12/15/23 1559 documented in this encounter [facility] 11-25-2023 History of Present illness Narrative Images from the original note were not included. [facility] [place] 11/25/23 Cuca Goodwin is a 78 y.o. year old female seen today in the oncology clinic. Chief Complaint Patient presents with Follow-up History of Present Illness: Mrs. Goodwin is a 78 y.o. female with history of aortic valve stenosis, she had PCI earlier in the year at [facility] for coronary disease. during the cardiac [...] use Cataract Dental disease Depression Diabetes mellitus ([facility]) Diabetes mellitus type 2, controlled ([facility]) Encephalitis Foot fracture, left GERD (gastroesophageal reflux disease) Heart murmur HLD (hyperlipidemia) Hypertension Incontinence Injury of back Insulin dependent diabetes mellitus Kidney failure STAGE 4 Lumbar spondylolysis Murmur Obesity CHELSEA (obstructive sleep apnea) no machine Peptic ulceration Peripheral vascular disease ([facility]) Shortness of breath TIA (transient ischemic attack) Upper respiratory infection UTI (urinary tract infection) Visual impairment Wears dentures Past Surgical History: Procedure Laterality Date BREAST BIOPSY Right 03/01/2023 ULT BIOPSY CATARACT EXTRACTION SECTION SECTION 03/14/1974 EGD N/A 10/17/2019 Performed by Sang Bell DO at [facility] HYSTEROSCOPY DILATION CURETTAGE MYOSURE N/A 01/29/2021 Performed by Jv Briones MD at [facility] INJECTION BLOCK EPIDURAL CAUDAL STEROID N/A 08/14/2022 Performed by Arnulfo Gonzalez MD at [facility] INJECTION BLOCK EPIDURAL CAUDAL STEROID N/A 06/06/2021 Performed by Arnulfo Gonzalez MD at [facility] INJECTION BLOCK EPIDURAL CAUDAL STEROID N/A 04/25/2021 Performed by Arnulfo Gonzalez MD at [facility] INJECTION CAUDAL EPIDURAL WITH CATHETER, STEROID N/A 05/03/2020 Performed by Arnulfo Gonzalez MD at [facility] CAUDAL EPIDURAL WITH CATHETER, STEROID N/A 11/24/2019 Performed by Arnulfo Gonzalez MD at [facility] INJECTION CAUDAL EPIDURAL WITH CATHETER, STEROID N/A 04/21/2019 Performed by Arnulfo Gonzalez MD at [facility] INJECTION MEDIAL BRANCH NERVE BLOCK Bilateral L 4/5, 5/1 Bilateral 08/18/2019 Performed by Arnulfo Gonzalez MD at [facility] INJECTION MEDIAL BRANCH NERVE BLOCK Bilateral L 4/5, 5/1 Bilateral 06/23/2019 Performed by Arnulfo Gonzalez MD at [facility] INJECTION STEROID EPI 1 WITH SEDATION Right L 4, 5 NR Right 03/17/2019 Performed by Arnulfo Gonzalez MD at [facility] INJECTION STEROID EPI 1 WITH SEDATION: right L45 nroot Right 08/15/2018 Performed by Arnulfo Gonzalez MD at [facility] LEFT L4, AND 5 NERVE ROOT INJECTION 2 OF 2 Left 07/22/2018 Performed by Arnulfo Gonzalez MD at [facility] LEFT L4, AND L5 NERVE ROOT 1 OF 2 Left 07/04/2018 Performed by Arnulfo Gonzalez MD at [facility] PERCUTANEOUS CORONARY INTERVENTION SHUNT INSERTION TONSILLECTOMY AGE 4 Transcutaneous aortic valve replacement/Transfemoral/Kwan N/A 08/17/2023 Performed by Chava Norris MD at [facility] Valvuloplasty aortic N/A 06/03/2023 Performed by Chava Norris MD at [facility] Family History Problem [...] min Stress: No Stress Concern Present (10/05/2022) [employer] - Occupational Stress Questionnaire Feeling of Stress : Not at all Social Connections: Moderately Isolated (10/05/2022) Social Connection and Isolation Panel [NHANES] Frequency of Communication with Friends and Family: Never Frequency of Social Gatherings with Friends and Family: Never Attends [employer] Services: More than 4 times per year [...] nephropathy, without long-term current use of insulin ([facility]) Signed by: KAIDEN Santana Monitor blood sugars four times daily and as needed clopidogreL 75 mg tablet Refills: 0 Dose: 75 mg Commonly known as: PLAVIX COMFORT EZ PEN NEEDLES 32 gauge x 5/16 needle Quantity: 200 each Refills: 6 For diagnoses: Type 2 diabetes mellitus with stage 4 chronic kidney disease, with long-term current use of insulin ([facility]) Dose: 4 applicator Signed by: KAIDEN Santana 4 applicators, miscellaneous, See admin instructions, 4 times daily injection Generic drug: pen needle, diabetic DEXCOM G6 [place]ER[place] misc Refills: 0 Dose: 1 Device Generic drug: blood-glucose meter,continuous DEXCOM G6 SENSOR device Refills: 0 Generic drug: blood-glucose sensor gabapentin 300 mg capsule Quantity: 180 capsule Refills: 1 Doctor's comments: 90 Day Supply. 1 refill For diagnoses: 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 mellitus ([facility]) Dose: 300 mg Signed by: KAIDEN Santana 300 mg, oral, 2 times daily Commonly known as: NEURONTIN hydroCHLOROthiazide 25 mg tablet Refills: 0 Dose: 25 mg Commonly known as: HYDRODIURIL insulin lispro 100 unit/mL insulin pen Refills: 0 For diagnoses: Mixed diabetic hyperlipidemia associated with type 2 diabetes mellitus ([facility]) Dose: 2 Units Signed by: RONNA Solis [...] nephropathy, without long-term current use of insulin ([facility]) Signed by: KAIDEN Santana Monitor blood sugars four times daily and as needed Commonly known as: onetouch ultrasoft * ONETOUCH DELICA PLUS LANCET 33 gauge misc Refills: 0 Generic drug: lancets letrozole 2.5 mg chemo tablet Quantity: 90 tablet Refills: 3 For diagnoses: 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 female breast, unspecified estrogen receptor status ([facility]) Dose: 2.5 mg Signed by: Dr. Rambo Muñoz MD 2.5 mg, oral, Daily Commonly known as: FEMARA LEVEMIR FLEXPEN 100 unit/mL (3 mL) insulin pen Quantity: 30 mL Refills: 3 For diagnoses: Controlled type 2 diabetes mellitus with diabetic nephropathy, without long-term current use of insulin ([facility]) Signed by: KAIDEN Santana INJECT 30 UNITS UNDER THE SKIN NIGHTLY Generic drug: insulin detemir U-100 metoprolol succinate XL 25 mg 24 hr tablet Quantity: 90 tablet Refills: 2 For diagnoses: Essential hypertension, Athscl heart disease of [place] coronary artery w/o ang pctrs Dose: 25 [...] Dose: 4 mg Signed by: Dr. Giovanny Gustafson, DO 4 mg, oral, Every 8 hours PRN Commonly known as: ZOFRAN ODT pantoprazole 40 mg EC tablet Quantity: 90 tablet Refills: 1 For diagnoses: GERD without esophagitis Dose: 40 mg Signed by: KAIDEN Santana 40 mg, oral, Daily Commonly known as: PROTONIX sertraline 100 mg tablet Quantity: 90 tablet Refills: 1 For diagnoses: Major depressive disorder in partial remission, unspecified whether recurrent ([facility]) Dose: 100 mg Signed by: KAIDEN Santana 100 mg, oral, Daily Commonly known as: ZOLOFT SITagliptin phosphate 50 mg tablet Quantity: 90 tablet Refills: 1 For diagnoses: Diabetes mellitus type 2, insulin dependent ([facility]), 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 ([facility]) Dose: 50 mg Signed by: KAIDEN Santana [...] right breast in female, estrogen receptor positive ([facility]) Other Visit Diagnoses 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 female breast, unspecified estrogen receptor status ([facility]) - Primary Relevant Orders CBC with auto [...] to ensure the accuracy of this automated business development representative, some errors in business development representative may have occurred. CC: Patient Care Team: KAIDEN Werner as PCP - General (Family Medicine) Simeon Quiles MD (Nephrology) KAIDEN Hsu as Nurse Practitioner (Pulmonary Medicine) Madison Ye MD as Referring Physician (Endocrinology, Diabetes & Metabolism) Rambo Muñoz MD as Consulting Physician (Hematology) PCP:Pam Ley Referring MD: Pam Ley AP* documented in this encounter [employer] 11-25-2023 Instructions Rambo Muñoz MD - 11/25/2023 2:30 PM EST Pet SCAN 02/2024. F/u in late 02/2024 to review results. Continue femara alone. Labs before appt: CBC, CMP, CA 15-3, CA 27.29. documented in this encounter [facility] 03-23-2023 Note SUBJECTIVE: Chief complaint: RECREATION COUNSELOR shunt adjustment status post 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 History of present illness: Return visit for NPH status post RECREATION COUNSELOR shunt. Had MRI thoracic and lumbar spine done at [facility] last week due to concern for spinal metastasis from. Needs shunt reprogrammed. Family member was told by our staff here that [...] pressure hydrocephalus) (CMS/HCC) PVD (peripheral vascular disease) ([facility]) Sleep apnea Past Surgical History: Procedure Laterality [...] Medications: acetaminophen amLODIPine aspirin atorvastatin blood-glucose meter misc cefuroxime cholecalciferol (vitamin D3) clopidogrel Dexcom G6 Sensor device ferrous sulfate FreeStyle Kartik 14 Day [place] misc FreeStyle Kartik 14 Day Sensor kit furosemide gabapentin hydroCHLOROthiazide insulin lispro lancets misc letrozole Levemir FlexPen insulin pen melatonin capsule metoprolol succinate XL metoprolol tartrate miscellaneous medical supply misc mupirocin ONETOUCH ULTRA BLUE TEST STRIP MISC OneTouch Ultra Test strip oxybutynin oxybutynin XL [...] FreeStyle Kartik reader (FreeStyle Kartik 14 Day [place]) misc, FreeStyle Kartik 14 Day [place], Disp: , Rfl: FreeStyle Kartik sensor system [...] (U-100) Insulin 10 (more content not included)... [place] 12-11-2022 History of Present illness Narrative Patient discharged home. Discharge instructions were explained and given to the patient, patient verbalized understanding. All belongings were sent with the patient. No signs of acute distress noted, no concerns voiced. Physical Therapy Facility/Department: [address] Physical Therapy Name: Cuca Goodwin : [...] 25 Sasha Maldonado PT Physical Therapy Facility/Department: [address] STEPDOWN Daily Treatment Note NAME: Cuca [...] the original note were not included. [employer] Dog Or Animal S[employer] Progress Note Date: 12/09/2022 Patient name: Cuca [...] a max pressure of: 10 graciela. Resolute [place] 2.5 x 12 CÉSAR. 1 inflation(s) to [...] a max pressure of: 12 graciela. Resolute Irc 3.0 x 12 CÉSAR. 1 inflation(s) to [...] stable. Plans for TAVR work-up as OP [employer] [phone] Physical Therapy Facility/Department: [address] Physical Therapy Initial Assessment Name: Cuca [...] pt repositioned in bed for comfort upon telegraphic typewriter operator's exit. Subjective Subjective: RN and pt in [...] rollator at baseline) Transfer Assistance: Independent Active Certified Income Tax Preparer: No Mode of Transportation: Friends, Cab Occupation: [...] the original note were not included. [employer] Progress Note Date: 12/08/2022 Patient name: Cuca [...] -- 110* CO2 -- 25 BUN -- CREATININE 1.35* 1.43* GLUCOSE -- 124* Hepatic:No [...] a max pressure of: 10 graciela. Resolute [place] 2.5 x 12 CÉSAR. 1 inflation(s) to [...] Plans for TAVR work-up as OP [facility] [employer] [facility] [employer] [facility]. [phone] Fitness Plan Coordinator discussed the next step in the TAVR process, an appointment with the cardiothoracic surgeon, with patient and daughter at bedside in [facility]. Office number given to daughter, she will call to schedule in the next couple days. Fitness Plan Coordinator's contact number also given. Patient declined AM [...] to Joelle PIERRE. Patient transported to room [facility] via stretcher. Right groin assessed by Joelle and telegraphic typewriter operator. Groin remains soft. Dr Jin at bedside [...] Manual pressure held Manual pressure held per telegraphic typewriter operator for [address] Martinez at bedside to assess. Order for POC H & H received. Hemaglobin 6.9. Stat lab draw ordered. Dr Martinez at bedside to assess. Order for LLE vascualr scan received. 1 Patient admitted, consent signed and questions answered. Patient ready for procedure. Call light to reach with side rails up 2 of 2. Bilateral groin areas clipped with telegraphic typewriter operator and Maggi estrada present. Daughter Ismael at bedside with patient. History and physical needs updated. Received post cardiac cath procedure to [facility] room 10. Assessment obtained. Restrictions reviewed with patient. Post procedure pathway initiated. Right site noted to have small hematoma, manual pressure held by Juana. Band aid dry and intact. Family at side. Patient without complaints. Head of bed flat with right leg straight. documented in this encounter [employer] Work Phone: 12-07-2022 Note [facility] Vascular Lower Extremities Arterial Duplex Procedure Patient Name CHRISTA Date of Study 12/07/2022 CUCA Date of 1945 Gender Female Age 77 year(s) Race Room Number 0501 Height: 65 inch, 165.1 cm Corporate ID # [id number] Weight: 208 pounds, 94.3 kg Patient BSA: 2.01 m^2 BMI: 34.61 kg/m^2 MR # [id number] Fruit And Vegetable Classer Whit Gan RVT Interpreting Physician Darnell Monique [...] are measured in cm LE Duplex Measurements +---------++-----+-----+------+-- --+------++---+-----+------+----+ ---------+ ! !!Right! !Left ! ! !! ! ! ! ! ! +---------++-----+-----+------+-- --+------++---+-----+------+----+ ---------+ !Location !!PSV !Ratio!Wave !AP !Trans !!PSV!Ratio!Wave !AP !Trans ! ! !! ! !Desc. !Diam!Diam !! ! !Desc. !Diam!Diam ! +---------++-----+-----+------+-- --+------++---+-----+------+----+ ---------+ !Dist EIA !!185 ! ! ! ! !! ! ! ! ! ! +---------++-----+-----+------+-- --+------++---+-----+------+----+ ---------+ !Common !!162 !0.88 ! ! ! !! ! ! ! ! ! !Femoral !! ! ! ! ! !! ! ! ! ! ! +---------++-----+-----+------+-- --+------++---+-----+------+----+ ---------+ !Prox SFA !!174 ! ! ! ! !! ! ! ! ! ! +---------++-----+-----+------+-- --+------++---+-----+------+----+ ---------+ [facility] 11-24-2022 History of Present illness Narrative Patient admitted, consent signed and questions answered. Patient ready for procedure. Call light to reach with side rails up 2 of 2. Bilateral groin areas clipped with telegraphic typewriter operator and Jose PIERRE present. Daughter Ileana at bedside with patient. History and physical needs updated. documented in this encounter [employer] Phone: 03-20-2021 Note PROCEDURE: XR FOOT L T MIN 3 VIEWS COMPARISON: None. HISTORY: Pain FINDINGS: BONES:No acute fracture or dislocation. Persistent flexion of the toes limits their evaluation. Mild to moderate degenerative changes with joint space narrowing and marginal osteophyte formation, most significant at the first metatarsophalangeal joint where mngr-vy-biol endplate is observed SOFT TISSUES:Negative. No visible soft tissue swelling. EFFUSION:None visible. OTHER: Negative. IMPRESSION: Moderate degenerative changes, no acute fracture Electronically authenticated by: GIOVANNY NICOLE Date: 2021-03-20 08:29 [facility] Evaluation note Diagnosis Severe aortic valve stenosis- Primary Aortic valve disorders documented in this encounter [employer] Phone: evaluation note* Diagnosis RAIN (acute kidney injury) ([facility])- Primary Acute kidney failure, unspecified documented in this encounter [employer] Phone: evaluation note* Diagnosis Severe aortic valve stenosis- Primary Aortic valve disorders Type 2 diabetes mellitus with diabetic neuropathy, with long-term current use of insulin ([facility]) Tremors of nervous system Abnormal involuntary movements Family history of coronary arteriosclerosis Family history of ischemic heart disease CHELSEA (obstructive sleep apnea) nonadherent with cpap Obstructive sleep apnea (adult) (pediatric) Stage 3a chronic kidney disease ([facility]) Coronary artery disease involving port gam[place] coronary artery of port gam[place] heart without angina pectoris documented in this encounter [employer] Phone: evalktignf note* Diagnosis Aortic valve stenosis, etiology of cardiac valve disease unspecified documented in this encounter [employer] Phone: evalkmhzpd note* Diagnosis Aortic valve stenosis, etiology of cardiac valve disease unspecified documented in this encounter [employer] Phone: [email or web address] note* Diagnosis 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 female breast, unspecified estrogen receptor status ([facility])- Primary documented in this encounter [facility] [employer] SystemEvaluation note* Diagnosis Insomnia, unspecified type documented in this encounter [facility] SystemEvaluation [facility]* Diagnosis Upper respiratory tract infection, unspecified type- Primary Normal pressure hydrocephalus ([facility]) 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 ([facility]) PVD (peripheral vascular disease) ([facility]) Unspecified peripheral vascular disease 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 mellitus ([facility]) Stage 3b chronic kidney disease ([facility]) Major depressive disorder in partial remission, unspecified whether recurrent ([facility]) Essential hypertension Unspecified essential hypertension GERD without esophagitis Esophageal reflux 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 ([facility]) documented in this encounter [facility] SystemEvaluation note* Diagnosis 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 female breast, unspecified estrogen receptor status ([facility]) documented in this encounter [facility] SystemEvaluation note* Diagnosis Acute cystitis without hematuria- Primary Urge incontinence of urine Urge incontinence documented in this encounter [facility] SystemEvaluation note* Diagnosis Hypoglycemia- Primary Hypoglycemia, unspecified Need for influenza vaccination Need for prophylactic vaccination and inoculation against influenza Altered mental status, unspecified altered mental status type documented in this encounter [facility] SystemEvaluation note* Diagnosis Fabby infection of flexural skin- Primary Candidiasis of skin and nails [facility]* Attachments The following attachments cannot be sent through Care Everywhere. * PCI (Percutaneous Coronary Intervention): Post-op (Malaysian) [facility] Work Phone: InstructionsNot on filedocumented in this encounter [facility] SystemInstructions* Attachments The following attachments cannot be sent through Care Everywhere. * Bacterial Upper Respiratory Infection, Adult (Malaysian) [facility] SystemInstructionsNot on file documented in this [facility] SystemInstructions* Attachments The following attachments cannot be sent through Care Everywhere. * Urinary Tract Infection Discharge Instructions, Adult (Malaysian) documented in [facility] SystemInstructionsNot on file [facility] SystemInstructionsNot on file [facility] SystemInstructionsNot on file [facility] SystemInst[facility]* Attachments The following attachments cannot be sent through Care Everywhere. 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 ACP-Advance Directive 12/14/2022 2:27 PM Latest Code Status on File Code Status Date Activated Date Inactivated Comments Full Code 12/07/2022 11:24 AM 12/11/2022 1:10 PM Full Code 11/24/2022 11:19 AM 11/25/2022 2:46 AM Full Code 09/28/2022 4:15 AM 09/30/2022 6:37 PM Full Code 10/15/2014 1:49 PM 10/15/2014 8:39 PM Documents on File Type Date Recorded 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 ACP-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 12/14/2022 2:27 PM Latest Code Status on File Code Status Date Activated Date Inactivated Comments Full Code 12/07/2022 11:24 AM 12/11/2022 1:10 PM Documents on File Type Date Recorded 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 Durable Power of Printing Grey Cloth Tender 10/21/2022 2:24 PM DNR Physician Order 10/21/2022 2:24 PM Living Will 01/30/2021 12:07 PM Durable Power of Printing Grey Cloth Tender 01/30/2021 12:07 PM Living Will 01/29/2021 6:19 AM Advance Directive 01/29/2021 6:18 AM DNR Physician Order 11/03/2019 1:27 PM Latest Code Status on File Code Status Date Activated Date Inactivated Comments Full Code 03/28/2023 5:07 PM 04/01/2023 3:32 PM Code Status History Code Status Date Activated Date Inactivated Comments DNR Comfort Care Arrest (DNR-CCA) [place] 10/06/2022 8:43 AM 10/06/2022 8:41 PM Full Code 10/05/2022 8:37 AM 10/06/2022 8:43 AM Full Code 05/26/2022 4:03 PM 05/28/2022 5:26 PM Full Code 11/29/2020 4:02 PM 12/01/2020 6:56 PM Date Activated Date Inactivated Comments 08/12/2024 3:34 AM 08/14/2024 8:05 PM Date Activated Date Inactivated Comments 06/13/2024 10:07 AM 2024 4:05 PM Date Activated Date Inactivated Comments 03/28/2023 5:07 PM 04/01/2023 3:32 PM Date Activated Date Inactivated Comments 10/06/2022 8:43 AM 10/06/2022 8:41 PM Date Activated Date Inactivated Comments 10/05/2022 8:37 AM 10/06/2022 8:43 AM Date Activated Date Inactivated Comments 08/23/2024 8:42 AM 08/24/2024 2:23 PM Date Activated Date Inactivated Comments 08/12/2024 3:34 AM 08/14/2024 8:05 PM Date Activated Date Inactivated Comments 06/13/2024 10:07 AM 2024 4:05 PM Date Activated Date Inactivated Comments 03/28/2023 5:07 PM 04/01/2023 3:32 PM Date Activated Date Inactivated Comments 10/06/2022 8:43 AM 10/06/2022 8:41 PM Summary Purpose Family History No Family History Records FoundNo Family History Records FoundNo Family History Records FoundNo Family History Records FoundNo Family History Records FoundNo Family History Records FoundNo Family History Records FoundNo Family History Records Found Reason for Referral Specialty Diagnoses / Procedures Referred By Polo t Referred To Contact Radiology Diagnoses Aortic valve stenosis, etiology of cardiac valve disease unspecified Procedures CT CARDIAC W C STC MORP CARD ONLY Namrata Blair, METAL BALER - PELT DROPPER [address] [place] [address] Referral ID Status Reason Start Date Expiration Date Visits Re quested Visits Authorized [id number] Closed 01/11/2023 04/10/2023 1 1 Specialty Diagnoses / Procedures Referred By Contac t Referred To Contact Radiology Diagnoses Aortic valve stenosis, etiology of cardiac valve disease unspecified Procedures CTA CHEST ABDOMEN PELVIS W CONTRAST Namrata Blair, METAL BALER - PELT DROPPER [address] [place] [address] Referral ID Status Reason Start Date Expiration Date Visits Re quested Visits Authorized [id number] Closed 01/11/2023 04/10/2023 1 1 Additional Source Comments INFORMATION SOURCE (unrecogn ized section and content) DATE CREATED AUTHOR 03/27/2021 [facility] DATE CREATED AUTHOR AUTHOR'S ORGANIZ ATION 04/09/2021 [facility] DATE CREATED AUTHOR AUTHOR'S ORGANIZ ATION 04/06/2022 [facility] DATE CREATED AUTHOR AUTHOR'S ORGANIZ ATION 01/22/[address] [facility] DATE CREATED AUTHOR AUTHOR'S ORGANIZ ATION 02/12/2024 [facility] DATE CREATED AUTHOR AUTHOR'S ORGANIZ ATION 03/20/2024 [facility] DATE CREATED AUTHOR AUTHOR'S ORGANIZ ATION 08/29/2024 [facility] DATE CREATED AUTHOR AUTHOR'S ORGANIZ ATION 09/17/2024 [facility] Reason for Visit (unrecogniz ed section and content) Specialty Diagnoses / Procedures Referred By Contac t Referred To Contact [facility] [address] [place] [address] Referral ID Status Reason Start Date Expiration Date Visits Re quested Visits Authorized [id number] 1 1 Referral ID Status Reason Start Date Expiration Date Visits Re quested Visits Authorized [id number] 1 1 Specialty Diagnoses / Procedures Referred By Contac t Referred To Contact Radiology Diagnoses Aortic valve stenosis, etiology of cardiac valve disease unspecified Procedures CT CARDIAC W C STC MORP CARD ONLY Namrata Blair, METAL BALER - PELT DROPPER [address] [place] [address] Referral ID Status Reason Start Date Expiration Date Visits Re quested Visits Authorized [id number] Closed 01/11/2023 04/10/2023 1 1 Specialty Diagnoses / Procedures Referred By Polo t Referred To Contact Radiology Diagnoses Aortic valve stenosis, etiology of cardiac valve disease unspecified Procedures CTA CHEST ABDOMEN PELVIS W Namrata Benjamin, METAL BALER - PELT DROPPER [address] [place] [address] Referral ID Status Reason Start Date Expiration Date Visits Re quested Visits Authorized [id number] Closed 01/11/2023 04/10/2023 1 1 Reason Comments Follow-up Reason Onset Date Comments Med Refill 12/06/2023 Reason Comments Cough Nasal Congestion Reason Comments Med Refill Reason Comments incontinence Reason Onset Date Comments Transition Of Care 08/16/2024 Reason Comments Med Change Request Reason Comments tcm Care Teams (unrecognized sec tion and content) Cyber [employer] Planner Relationship Specialty Start Date End Date Caden Sanchez PCP - General Family Medicine 09/29/22 [employer] Planner Relationship Specialty Start Date End Date Caden Sanchez PCP - General Family Medicine 09/29/22 Cyber Intel Planner Relationship Specialty Start Date End Date Caden Sanchez PCP - General Family Medicine 09/29/22 Cyber Intel Planner Relationship Specialty Start Date End Date Caden Sanchez PCP - General Family Medicine 09/29/22 Cyber Intel Planner Relationship Specialty Start Date End Date DanielCaden M PCP - General Family Medicine 09/29/22 Cyber [employer] Planner Relationship Specialty Start Date End Date Pam Ley, METAL BALER - PELT DROPPER [address] [place] [address] PCP - General 01/15/23 Cyber Intel Planner Relationship Specialty Start Date End Date Pam Ley METAL BALER - PELT DROPPER [address] [place] [id number] PCP - General 01/15/23 Cyber Intel Planner Relationship Specialty Start Date End Date Pam Ley, METAL BALER-PELT DROPPER [address] [place] [id number] PCP - General Family Medicine 09/28/23 Cyber Intel Planner Relationship Specialty Start Date End Date Pam Ley [facility] [address] [place] [address] PCP - General Family Medicine 09/28/23 Cyber Intel Planner Relationship Specialty Start Date End Date Pam Ley [facility] [address] [place] [address] PCP - General Family Medicine 09/28/23 Cyber Intel Planner Relationship Specialty Start Date End Date Pam Ley [facility] [address] [place] [address] PCP - General Family Medicine 09/28/23 Cyber Intel Planner Relationship Specialty Start Date End Date Pam Ley METAL [facility] [address] [place] [address] PCP - General Family Medicine 09/28/23 Cyber Intel Planner Relationship Specialty Start Date End Date Pam Ley [facility] [address] [place] [address] PCP - General Family Medicine 09/28/23 Cyber Intel Planner Relationship Specialty Start Date End Date Pam Ley METAL [facility] [address] [place] [address] PCP - General Family Medicine 09/28/23 Cyber Intel Planner Relationship Specialty Start Date End Date Pam Ley METAL [facility] [address] [place] [address] PCP - General Family Medicine 09/28/23 Cyber Intel Planner Relationship Specialty Start Date End Date Pam Ley [facility] [address] [place] [address] PCP - General Family Medicine 09/28/23 Cyber Intel Planner Relationship Specialty Start Date End Date Pam Ley METAL BALER-[facility] [address] [place] [address] PCP - General Family Medicine 09/28/23 Ordered [...] 925 (Given - Provider: Jacqueline Medina RN) 08 [...] 925 (Given - Provider: Jacqueline Medina, GABBY) 0802 (Given - Provider: Jacqueline Medina RN) 0846 (Given - Provider: De'Maryanne Aly, RN) insulin glargine (LANTUS) injection vial 10 [...] Until Discontinued 09 (Given - Provider: Jacqueline Medina RN) 08 (Given - Provider: Jacqueline Medina RN) 08 (Given - Provider: Stefanie Lu RN) sodium [...] or Central Line = 20 mL/lumen, Recovery(Cath) 951 (Not Given - Provider: Jacqueline Medina RN - Reason: IV Fluid Infusing)2005 (Not Given - Provider: Tamika Villavicencio RN - Reason: IV Fluid Infusing) 08 (Not Given - Provider: Jacqueline Medina RN - Reason: IV Fluid Infusing)195 (Given - Provider: Libia Lyons RN) 0847 (Given - Provider: Stefanie Lu, RN)2100 (Due) Continuous Medication Order 12/09/2022 12/10/2022 12/11/2022 0.9 % sodium chloride infusion (CANCELED) IntraVENous, at 75 mL/hr, CONTINUOUS, Starting on Wed12/07/22 at 1145, Pre-Procedure(Cath) 0328 (New Bag - Provider: Tamika Villavicencio RN)0329 (Paused - Provider: Tamika Villavicencio RN)0329 (Restarted - Provider: Tamika Villavicecnio RN)0638 (Rate/Dose Verify - Provider: Tamika Villavicencio [...] or break. 2300 (Given - Provider: Tamika Villavicencio, GABBY) dextrose 10 % infusion IntraVENous, at 100 [...] patient NOT ALERT or NPO, Starting on Ikm 12/10/22 at 0823, Repeat blood glucose in [...] back and for the from 3C to [facility] as needed for addt'l testing throughout the [...] BE BASED ON THE PRIMARY CLINICAL RECORDS. [facility] [employer] [facility]. provides no warranty or guarantee of the accuracy or completeness of information in this document.
[2024-10-11 16:09] LABS: Basophils Percent Auto 0.5 % (0.2-2.0); Eosinophils Absolute Auto 0.1 10^3/uL (0.0-0.7); Eosinophils Percent Auto 0.6 % (0.9-7.0); Hematocrit 33.5 % (36.0-48.0); Hemoglobin 10.7 g/dL (12.0-16.0); Immature Granulocytes Abs Auto 0.03 10^3/uL (0.00-0.03); Immature Granulocytes Pct Auto 0.4 % (0.0-0.5); Lymphocytes Absolute Auto 1.3 10^3/uL (1.2-3.8); Lymphocytes Percent Auto 15.3 % (20.5-60.0); Mean Corpuscular HGB Conc 31.9 g/dL (29.9-35.2); Mean Corpuscular Hemoglobin 27.8 pg (26.7-34.0); Monocytes Absolute Auto 0.7 10^3/uL (0.3-0.8); Monocytes Percent Auto 8.8 % (1.7-12.0); Neutrophils Absolute Auto 6.3 10^3/uL (1.4-6.5); Neutrophils Percent Auto 74.4 % (43.0-75.0); Platelet Count 330 10^3/uL (150-450); Red Blood Count 3.85 10^6/uL (4.20-5.40); Red Cell Distribution Width 14.7 % (11.0-15.0); White Blood Count 8.5 10^3/uL (4.0-11.0)
[2024-10-11 16:11] LABS: pH VBG 7.348 (7.330-7.430)
[2024-10-11 16:12] LABS: Internal Control Within Normal Limits; Respiratory Syncytial Virus Not Detected (NOT DETECTE); SARS-CoV-2 Ag NEGATIVE (NEGATIVE)
[2024-10-11 16:12] LABS: PCO2 VBG 45.4 mmHg (40.0-52.0)
[2024-10-11] MEDS: CEFTRIAXONE 2,000 MG in 0.9 % SODIUM CHLORIDE 100 ML 200 MG IV (16:20)
[2024-10-11] MEDS: ONDANSETRON PF 4 MG/2 ML VIAL IV (16:20)
[2024-10-11 16:22] LABS: INR 1.08; Prothrombin Time 11.4 sec (9.0-11.6)
[2024-10-11 16:32] LABS: Alanine Aminotransferase 20 U/L (14-59); Albumin Globulin Ratio 0.8; Albumin Level 3.6 g/dL (3.4-5.0); Alkaline Phosphatase 104 U/L (46-116); Anion Gap 15.2; Aspartate Amino Transferase 21 U/L (15-37); BUN Creatinine Ratio 14.1; Bilirubin Total 0.6 mg/dL (0.2-1.0); Calcium 9.7 mg/dL (8.5-10.1); Carbon Dioxide 25.8 mmol/L (21.0-32.0); Chloride 101 mmol/L (98-107); Estimated GFR (African America 37 (>=60 mL/min/1.73m^2); Estimated GFR (Non-African Ame 31 (>=60 mL/min/1.73m^2); Globulin 4.3 g/dL; Glucose 201 mg/dL (74-106); Lactate/Lactic Acid 1.6 mmol/L (0.4-2.0); Sodium 138 mmol/L (136-145); Total Protein 7.9 g/dL (6.4-8.2); Troponin I High Sensitivity 30.5 pg/mL (4.0-51.3)
[2024-10-11 17:11] LABS: Bilirubin Urine SMALL (NEGATIVE); Blood Urine TRACE-I (NEGATIVE); Clarity Urine SLIGHTLY CLOUDY (CLEAR); Color Urine LT. YELLOW (YELLOW); Glucose Urine UA NEGATIVE (NEGATIVE); Ketones Urine 15 mg/dL (NEGATIVE); Leukocyte Esterase Urine MODERATE (NEGATIVE); Nitrite Urine NEGATIVE (NEGATIVE); Protein Urine 30 mg/dL (NEG/TRACE); Specific Gravity Urine >=1.030 (1.005-1.025); Urine Microscopic Indicated YES; Urobilinogen Urine 0.2 EU/dL (0.2-1.0); pH Urine 5.5 (5.0-9.0)
[2024-10-11 17:24] LABS: Bacteria Urine SMALL #/HPF (NONE SEEN); Cast Seen? SEEN #/LPF (NONE SEEN); Crystals Seen? None Seen #/HPF (None Seen); Fine Granular Casts Urine FEW; Hyaline Casts Urine FEW; Mucus Urine MODERATE (NONE SEEN); RBC Urine 0-2 #/HPF (0-2); Squamous Epithelial Cell Urine MANY #/LPF (NONE/RARE); Urine Culture Indicated YES; WBC Urine >100 #/HPF (NONE SEEN)
[2024-10-11] MEDS: FLUCONAZOLE 150 MG TABLET PO (17:32)
--- OUTSIDE RECORDS SUMMARY | 2024-10-11 20:10 | XMS_ITS | CCD ---
Author Organization [facility] [place] ion [facility] Care Team Providers Care Injection Machine Operator Name Role Phone Caden Sanchez Primary Care Provider UnavailLAKESHIA Kramer Referring Unavailable CADEN SANCHEZ Primary Care Unavailable ELIZABETH TOMLINSON Referring Unavailable CADEN SANCHEZ Primary Care Unavailable PAM LEY Primary Care Unavailable ASHLEE, DR PADILLA Attending Unavailable ASHLEE, DR PADILLA Consulting Unavailable ASHLEE, DR PADILLA Admitting Unavailable COREY, DR GIOVANNY Tuttle Consulting Unavailable Vale Bowser Admitting Unavailable Vale Bowser Attending Unavailable GIOVANNY LOAGN Referring Unavailable GIOVANNY LOGAN Primary Care Unavailable Daniel Caden Patel Primary Care Provider Unavaildeshawn Ley PROCESS CHECKER - CAISSON WORKER, Pam De La Rosa Primary Care Prov [...] Attending Unavailable MARITZA MIDDLETON Admitting Unavailable Ley PROCESS CHECKER-CAISSON WORKER, Pam De La Rosa Primary Care Provid [...] Attending Unavailable LEY, PAM J Referring Unavailable ELY, PAM J Primary Care Unavailable SOL BRICE Referring Unavailabl e LEY, PAM J Primary Care Unavailable RAMBO MUÑOZ Referring Unavailable LEY, PAM J Primary Care Unavailable LEY, PAM J Primary Care Unavailable ALIDA ALLEN Attending Unavailable ILDEFONSO BALLESTEROS Admitting Unavailable ALIDA ALLEN Attending Unavailable ALIDA ALELN Referring Unavailable LEY, PAM Estrella Primary Care [...] Date of Onset Reaction(s) Facility (1 source) 85609,00 Drug allergy (disorder) 01-23-2020 [facility] Repository Medications Current Medications Medication Drug [...] (DULCOLAX) EC tablet 10 mg blood-glucose meter [facility] (11 sources) Start: 10-11-2020 blood-glucose meter [facility] Indications: Controlled type 2 diabetes mellitus with diabetic nephropathy, without long-term current use of insulin ([facility]) Monitor blood sugars four times daily and as needed 1 each 10/11/2020 Active Start: 10-11-2020 blood-glucose meter [facility] Indications: Controlled type 2 diabetes mellitus with diabetic nephropathy, without long-term current use of insulin ([facility]) Monitor blood sugars four times daily [...] in the morning. 09/29/2022 Active DEXCOM G6 ASSIGNMENT EDITOR misc (5 sources) Start: DEXCOM G6 ASSIGNMENT EDITOR misc 1 Device by drain unit route See Admin Instructions. 0 05/06/2023 Active DEXCOM G7 ASSIGNMENT EDITOR misc (3 sources) Start: DEXCOM G7 ASSIGNMENT EDITOR misc USE DIRECTED TO CONTINUOUSLY MONITOR BLOOD SUGAR 07/05/2024 Active DEXCOM G7 SENSOR device (6 sources) Start: DEXCOM G7 SENSOR device CHANGE SENSOR EVERY 10 DAYS, E11.65 03/22/2024 Active dextromethorphan hydrobromide 1.5 mg/ml / pyrilamine maleate 1.5 mg/ml oral solution (3 sources) Uncompetitive C-xqhjmh-E-aspartate Receptor Antagonist, Sigma-1 Agonist Start: take 5 [...] nephropathy, without long-term current use of insulin ([facility]) INJECT 30 UNITS UNDER THE SKIN [...] receptor status ([facility]) TAKE 1 TABLET BY MOUTH EVERY DAY [...] and hypertension ([facility]) Take 1 tablet (50 mg total) [...] 24 hours. 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; Translations: [FORESTRY HUNTER CURRENT USE OF INSULIN] Onset: 1 Episodic Other aftercare (1 source) Other terminal system operator (current) drug therapy; Translations: [OTH FORESTRY HUNTER CURRENT 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] Onset: 1 Episodic Other [...] BASOPHIL 0.0 X10E9/L Normal 0.0-0.2 [facility] Comment on above: Performed By: #### C BC, BMP, 1750-7, 26458-2, 2777-1, 2731-8, 00723-0 #### [facility] ([id number]) [address] [facility], [address] [address] ABSOLUTE NEUTROPHIL 6.0 X10E9/L Normal 1.5-6.6 [facility] Comment on above: Performed By: #### Renita BC, BMP, 1750-7, 86901-6, 2777-1, 2731-8, 01076-0 #### [facility] ([id number]) [address] [facility], [facility] [address] [place] [address] Basophils/100 WBC (Bld) 0.3 % Normal [facility] Comment on above: Performed By: #### Renita BC, BMP, 1750-7, 47728-6, 2777-1, 2731-8, 28149-9 #### [facility] ([id number]) [address] [place] [address], [facility] [address] [place] [address] Eosinophils (Bld) [#/Vol] 0.3 10*3/uL Normal 0.0-0.4 [facility] Comment on above: Performed By: #### Renita BC, BMP, 1750-7, 58951-3, 2777-1, 2731-8, 48990-9 #### [facility] ([id number]) [address] [facility], [facility] [address] [place] [address] Eosinophils/100 WBC (Bld) 2.7 % Normal [facility] Comment on above: Performed By: #### C BC, BMP, 1751-05, 48033-2, 2776-, 273-8, 45051-9 #### [facility] ([id number]) [address] [place] [address] Erythrocyte distribution width (RBC) [Ratio] 15.9 % High 11.5-15.0 [facility] Comment on above: Performed By: #### C BC, BMP, 1751-05, 59485-8, 2776-1, 273-8, 26253-2 #### [facility] ([id number]) [address], [address] [place] [address] Hematocrit (Bld) [Volume fraction] 29.0 % Low 35-47 [facility] Comment on above: Performed By: #### C BC, BMP, 1751-05, , 2776-, 2730-8, 16195-5 #### [facility] ([id number]) [address], [address] [place] [address] Hemoglobin (Bld) [Mass/Vol] 9.5 g/dL Low 11.7-15.5 [facility] Comment on above: Performed By: #### Renita BC, BMP, 1751-05, , 2776-, 2730-8, 89843-9 #### [facility] ([id number]) [address], [address] [place] [address] Lymphocytes (Bld) [#/Vol] 3.0 10*3/uL Normal 1.0-3.5 [facility] Comment on above: Performed By: #### C BC, BMP, 1750-, 10590-3, 2776-, 273-8, 95144-0 #### [facility] ([id number]) [address], [address] [place] [address] Lymphocytes/100 WBC (Bld) 28.8 % Normal [facility] Comment on above: Performed By: #### C TIFFANY, BMP, 1750-, 71584-1, 2776-, 2730-8, 04734-5 #### [facility] ([id number]) [address], [address] [place] [address] MCH (RBC) [Entitic mass] 27.7 pg Normal 27-34 [facility] Comment on above: Performed By: #### C TIFFANY, BMP, 1751-05, 63346-5, 2776-, 2730-8, 12133-5 #### [facility] ([id number]) [address], [address] [place] [address] MCHC (RBC) [Mass/Vol] 32.7 g/dL Normal 32-36 [facility] Comment on above: Performed By: #### Renita ALLEN, BMP, 1751-05, , 2776-, 2730-8, 68304-3 #### [facility] ([id number]) [address], [address] [place] [address] MCV (RBC) [Entitic vol] 85 fL Normal 80-100 [facility] Comment on above: Performed By: #### Renita ALLEN, BMP, 1751-05, 46724-5, 2776-, 2730-8, 68289-2 #### [facility] ([id number]) [address], [address] [place] [address] Monocytes (Bld) [#/Vol] 1.0 10*3/uL High 0-0.9 [facility] Comment on above: Performed By: #### Renita BC, BMP, 1751-05, 31116-7, 2776-, 273-8, 48907-1 #### [facility] ([id number]) [address], [address] [place] [address] Monocytes/100 WBC (Bld) 9.8 % Normal [facility] Comment on above: Performed By: #### C BC, BMP, 1750-7, 35134-7, 2777-1, 2731-8, 49760-1 #### [facility] ([id number]) [address], [address] [place] [address] Neutrophils/100 WBC (Bld) 58.4 % Normal [facility] Comment on above: Performed By: #### C BC, BMP, 1750-, 63375-5, 7-1, 2731-8, 47856-3 #### [facility] ([id number]) [address], [address] [place] [address] Platelet mean volume (Bld) [Entitic vol] 8.7 fL Normal 7-12 [facility] Comment on above: Performed By: #### Renita BC, BMP, 1751-05, 63056-8, 2776-1, 273-8, 47079-3 #### [facility] ([id number]) [address], [address] [place] [address] Platelets (Bld) [#/Vol] 189 10*3/uL Normal 150-450 [facility] Comment on above: Performed By: #### Renita BC, BMP, 1750-, 34565-8, 2776-1, 273-8, 59213-2 #### [facility] ([id number]) [address], [address] [place] [address] RBC COUNT 3.43 X10E12/L Low 3.80-5.20 [facility] Comment on above: Performed By: #### Renita BC, BMP, 1750-, 38681-8, 2776-1, 273-8, 36506-1 #### [facility] ([id number]) [address], [address] [place] [address] WBC (Bld) [#/Vol] 10.2 10*3/uL Normal 4.0-11.0 [facility] Comment on above: Performed By: #### C BC, BMP, 175-7, 63490-0, 2777-1, 2731-8, 54517-3 #### [facility] ([id number]) [address], [address] [place] [address] COMPREHENSIVE METABOLIC PANE Dickson 08-24-2024 Albumin [Mass/Vol] 3.0 g/dL Low 3.2-5.3 [facility] Comment on above: Performed By: #### C BC, BMP, 1750-7, 47901-7, 2777-1, 2731-8, 13277-7 #### [facility] ([id number]) [address], [address] [place] [address] ALP [Catalytic activity/Vol] 70 U/L Normal 39-130 [facility] Comment on above: Performed By: #### Renita BC, BMP, 175-7, 86195-5, 2777-1, 2731-8, 37523-6 #### [facility] ([id number]) [address], [address] [place] [address] ALT [Catalytic activity/Vol] 15 U/L Normal 0-31 [facility] Comment on above: Performed By: #### Renita BC, BMP, 175-7, 93803-7, 2777-1, 2731-8, 19177-8 #### [facility] ([id number]) [address], [address] [place] [address] Anion gap [Moles/Vol] 7 mmol/L Normal 5-15 [facility] Comment on above: Performed By: #### C BC, BMP, 175-7, 81629-4, 2777-1, 2731-8, 84062-7 #### [facility] ([id number]) [address], [address] [place] [address] AST [Catalytic activity/Vol] 20 U/L Normal 0-41 [facility] Comment on above: Performed By: #### C BC, BMP, 1750-7, 41656-0, 2777-1, 2731-8, 53529-1 #### [facility] ([id number]) [address], [address] [place] [address] Bilirubin [Mass/Vol] 0.8 mg/dL Normal 0.3-1.2 [facility] Comment on above: Performed By: #### C BC, BMP, 1750-7, 34087-9, 2777-1, 2731-8, 10571-5 #### [facility] ([id number]) [address], [address] [place] [address] Calcium [Mass/Vol] 8.4 mg/dL Low 8.5-10.5 [facility] Comment on above: Performed By: #### C BC, BMP, 1750-7, 11611-6, 7-1, 2731-8, 83809-6 #### [facility] ([id number]) [address], [address] [place] [address] Chloride [Moles/Vol] 105 mmol/L Normal 98-109 [facility] Comment on above: Performed By: #### Renita BC, BMP, 1750-7, 46977-5, 7-1, 2731-8, 44227-4 #### [facility] ([id number]) [address], [address] [place] [address] CO2 [Moles/Vol] 24 mmol/L Normal 22-32 [facility] Comment on above: Performed By: #### C BC, BMP, 1750-7, 18116-7, 2777-1, 2731-8, 24683-0 #### [facility] ([id number]) [address], [address] [place] [address] Creatinine [Mass/Vol] 1.36 mg/dL High 0.40-1.00 [facility] Comment on above: Result Comment: METH OD TRACEABLE TO IDMS STANDARD Performed By: #### C TIFFANY, BMP, 1750-7, 35161-6, 2777-1, 2731-8, 33299-9 #### [facility] ([id number]) [address], [address] [place] [address] GFR/1.73 sq M.predicted among non-blacks MDRD (S/P/Bld) [Vol rate/Area] 40 mL/min/{1.73_m2} Low >59 [facility] Comment on above: Result Comment: Reported eGFR is based on the CKD-EPI 2020 equation that does not use a race coefficient. Performed By: #### C TIFFANY, BMP, 1750-7, 15552-8, 2777-1, 2731-8, 82594-9 #### [facility] ([id number]) [address], [address] [place] [address] Glucose [Mass/Vol] 215 mg/dL High 65-99 [facility] Comment on above: Performed By: #### C TIFFANY, BMP, 1751-05, 79524-7, 7-1, 2731-8, 95133-1 #### [facility] ([id number]) [address], [address] [place] [address] Potassium [Moles/Vol] 4.7 mmol/L Normal 3.5-5.0 [facility] Comment on above: Performed By: #### C BC, BMP, 1750-7, 36185-4, 2777-1, 2731-8, 50696-0 #### [facility] ([id number]) [address], [address] [place] [address] Protein [Mass/Vol] 6.0 g/dL Normal 6.0-8.0 [facility] Comment on above: Performed By: #### C BC, BMP, 1750-7, 15371-0, 2777-1, 2731-8, 19449-1 #### [facility] ([id number]) [address], [address] [place] [address] Sodium [Moles/Vol] 136 mmol/L Normal 134-146 [facility] Comment on above: Performed By: #### C TIFFANY, BMP, 1750-, 38199-7, 2776-, 2730-8, 82298-0 #### [facility] ([id number]) [address], [address] [place] [address] Urea nitrogen [Mass/Vol] 16 mg/dL Normal 5-27 [facility] Comment on above: Performed By: #### C TIFFANY, BMP, 1751-05, , 2776-, 2730-8, 83702-9 #### [facility] ([id number]) [address], [address] [place] [address] Glucose Glucometer (BldC) [M ass/Vol]on 08-24-2024 Glucose [Mass/Vol] 358 mg/dL High 65-99 [facility] MAGNESIUMon 08-24-2024 Magnesium [Mass/Vol] 2.5 mg/dL Normal 1.8-2.6 [facility] Comment on above: Performed By: #### C TIFFANY, BMP, 1751-05, 16071-6, 2776-, 2730-8, 29647-9 #### [facility] ([id number]) [address], [address] [place] [address] BLOOD CULTUREon 08-23-2024 Bacteria identified Aer cx Nom (Bld) SPECIMEN NOTES L HAND CULTURE RESULTS NO GROWTH 5 DAYS Normal [facility] Comment on above: Performed By: #### C TIFFANY, BMP, 1750-, 00708-2, 2776-, 2730-8, 13475-9 #### [facility] ([id number]) [address], [address] [place] [address] Bacteria identified Aer cx Nom (Bld) SPECIMEN NOTES R HAND SOV CULTURE RESULTS NO GROWTH 5 DAYS Normal [facility] Comment on above: Performed By: #### C BC, BMP, 1751-7, 47515-5, 2777-1, 2731-8, 69574-7 #### [facility] ([id number]) [address] [place] [address] CBC AND AUTO DIFFon 08-23-20 24 Band form neutrophils/100 WBC (Bld) 1.0 % Normal [facility] Comment on above: Performed By: #### C BCA, BMP #### [facility] ([id number]) [address] [place] [address] #### HA1C #### [facility] ([id number]) [address] [facility] [place] [address] Erythrocyte distribution width (RBC) [Ratio] 15.7 % High 11.5-15.0 [facility] Comment on above: Performed By: #### C BCA, BMP #### [facility] ([id number]) [address] [place] [address] #### HA1C #### [facility] ([id number]) [address] [place] [address] Hematocrit (Bld) [Volume fraction] 36.1 % Normal 35-47 [facility] Comment on above: Performed By: #### C BCA, BMP #### [facility] ([id number]) [address] [place] [address] #### HA1C #### [facility] ([id number]) [address] [place] [address] Hemoglobin (Bld) [Mass/Vol] 11.5 g/dL Low 11.7-15.5 [facility] Comment on above: Performed By: #### C BCA, BMP #### [facility] ([id number]) [address] [place] [address] #### HA1C #### [facility] ([id number]) [address] [place] [address] LYMPHOCYTE, ATYPICAL 1.0 % Normal [facility] Comment on above: Performed By: #### C BCA, BMP #### [facility] ([id number]) [address] [place] [address] #### HA1C #### [facility] ([id number]) [address] [place] [address] Lymphocytes (Bld) [#/Vol] 2.6 10*3/uL Normal 1.0-3.5 [facility] Comment on above: Performed By: #### C BCA, BMP #### [facility] ([id number]) [address] [place] [address] #### HA1C #### [facility] ([id number]) [address] [place] [address] Lymphocytes/100 WBC (Bld) 18.0 % Normal [facility] Comment on above: Performed By: #### C BCA, BMP #### [facility] ([id number]) [address] [place] [address] #### HA1C #### [facility] ([id number]) [address] [place] [address] MCH (RBC) [Entitic mass] 27.2 pg Normal 27-34 [facility] Comment on above: Performed By: #### C BCA, BMP #### [facility] ([id number]) [address] [place] [address] #### HA1C #### [facility] ([id number]) [address] [place] [address] MCHC (RBC) [Mass/Vol] 32.0 g/dL Normal 32-36 [facility] Comment on above: Performed By: #### Renita BCA, BMP #### [facility] ([id number]) [address] [place] [address] #### HA1C #### [facility] ([id number]) [address] [place] [address] MCV (RBC) [Entitic vol] 85 fL Normal 80-100 [facility] Comment on above: Performed By: #### C NATIVIDAD, BMP #### [facility] ([id number]) [address] [place] [address] #### HA1C #### [facility] ([id number]) [address] [place] [address] Monocytes (Bld) [#/Vol] 0.8 10*3/uL Normal 0-0.9 [facility] Comment on above: Performed By: #### C NATIVIDAD, BMP #### [facility] ([id number]) [address] [place] [address] #### HA1C #### [facility] ([id number]) [address] [place] [address] Monocytes/100 WBC (Bld) 6.0 % Normal [facility] Comment on above: Performed By: #### C BCA, BMP #### [facility] ([id number]) [address] [place] [address] #### HA1C #### [facility] ([id number]) [address] [place] [address] MYELOCYTE 1.0 % Normal [facility] Comment on above: Performed By: #### Renita BCA, BMP #### [facility] ([id number]) [address] [place] [address] #### HA1C #### [facility] ([id number]) [address] [place] [address] Neutrophils (Bld) [#/Vol] 10.5 10*3/uL High 1.5-6.6 [facility] Comment on above: Performed By: #### Renita HENSON, BMP #### [facility] ([id number]) [address] [place] [address] #### HA1C #### [facility] ([id number]) [address] [place] [address] OVALOCYTE 1+ Abnormal NONE [facility] Comment on above: Performed By: #### Renita HENSON, BMP #### [facility] ([id number]) [address] [place] [address] #### HA1C #### [facility] ([id number]) [address] [place] [address] Platelet mean volume (Bld) [Entitic vol] 8.3 fL Normal 7-12 [facility] Comment on above: Performed By: #### C NATIVIDAD, BMP #### [facility] ([id number]) [address] [place] [address] #### HA1C #### [facility] ([id number]) [address] [place] [address] Platelets (Bld) [#/Vol] 262 10*3/uL Normal 150-450 [facility] Comment on above: Performed By: #### C BCA, BMP #### [facility] ([id number]) [address] [place] [address] #### HA1C #### [facility] ([id number]) [address] [place] [address] RBC COUNT 4.25 X10E12/L Normal 3.80-5.20 [facility] Comment on above: Performed By: #### Renita BCA, BMP #### [facility] ([id number]) [address] [place] [address] #### HA1C #### [facility] ([id number]) [address] [facility] [place] [address] SEG NEUTROPHIL 73.0 % Normal [facility] Comment on above: Performed By: #### C BCA, BMP #### [facility] ([id number]) [address] [place] [address] #### HA1C #### [facility] ([id number]) [address] [facility] [place] [address] TOXIC GRANULATION 1+ Abnormal NONE [facility] Comment on above: Performed By: #### C BCA, BMP #### [facility] ([id number]) [address] [place] [address] #### HA1C #### [facility] ([id number]) [address] [place] [address] WBC (Bld) [#/Vol] 14.0 10*3/uL High 4.0-11.0 [facility] Comment on above: Performed By: #### C BCA, BMP #### [facility] ([id number]) [address] [place] [address] #### HA1C #### [facility] ([id number]) [address], [address] [place] [address] CK [Catalytic activity/Vol]o n 08-23-2024 CPK 48 U/L Normal 24-170 [facility] Comment on above: Performed By: #### C BC, BMP, 1458-7, 27082-7, 2777-1, 2731-8, 32067-3 #### [facility] ([id number]) [address], [address] [place] [address] COMPREHENSIVE METABOLIC PANE Dickson 08-23-2024 Albumin [Mass/Vol] 3.8 g/dL Normal 3.2-5.3 [facility] Comment on above: Performed By: #### C BCA, BMP #### [facility] ([id number]) [address] [place] [id number] #### HA1C #### [facility] ([id number]) [address], [address] [place] [address] ALP [Catalytic activity/Vol] 88 U/L Normal 39-130 [facility] Comment on above: Performed By: #### C BCA, BMP #### [facility] ([id number]) [address] [place] [address] #### HA1C #### [facility] ([id number]) [address] [place] [address] ALT [Catalytic activity/Vol] 19 U/L Normal 0-31 [facility] Comment on above: Performed By: #### C BCA, BMP #### [facility] ([id number]) [address] [place] [address] #### HA1C #### [facility] ([id number]) [address], [address] [place] [address] Anion gap [Moles/Vol] 11 mmol/L Normal 5-15 [facility] Comment on above: Performed By: #### C BCA, BMP #### [facility] ([id number]) [address] [place] [address] #### HA1C #### [facility] ([id number]) [address], [address] [place] [address] AST [Catalytic activity/Vol] 20 U/L Normal 0-41 [facility] Comment on above: Performed By: #### C BCA, BMP #### [facility] ([id number]) [address] [place] [address] #### HA1C #### [facility] ([id number]) 0 [address] [place] [address] Bilirubin [Mass/Vol] 0.6 mg/dL Normal 0.3-1.2 [facility] Comment on above: Performed By: #### C BCA, BMP #### [facility] ([id number]) [address] [place] [address] #### HA1C #### [facility] ([id number]) [address] [place] [address] Calcium [Mass/Vol] 8.8 mg/dL Normal 8.5-10.5 [facility] Comment on above: Performed By: #### C BCA, BMP #### [facility] ([id number]) [address] [place] [address] #### HA1C #### [facility] ([id number]) [address] [place] [address] Chloride [Moles/Vol] 102 mmol/L Normal 98-109 [facility] Comment on above: Performed By: #### C BCA, BMP #### [facility] ([id number]) [address] [place] [address]58[address] #### HA1C #### [facility] ([id number]) [address] [place] [address] CO2 [Moles/Vol] 25 mmol/L Normal 22-32 [facility] Comment on above: Performed By: #### C BCA, BMP #### [facility] ([id number]) [address] [place] [address] #### HA1C #### [facility] ([id number]) [address] [place] [address] Creatinine [Mass/Vol] 1.29 mg/dL High 0.40-1.00 [facility] Comment on above: Result Comment: METH OD TRACEABLE TO IDMS STANDARD Performed By: #### C BCA, BMP #### [facility] ([id number]) [address] [place] [address] 97811 #### HA1C #### [facility] ([id number]) [address] [place] [address] GFR/1.73 sq M.predicted among non-blacks MDRD (S/P/Bld) [Vol rate/Area] 42 mL/min/{1.73_m2} Low >59 [facility] Comment on above: Result Comment: Reported eGFR is based on the CKD-EPI 2020 equation that does not use a race coefficient. Performed By: #### C BCA, BMP #### [facility] ([id number]) [address] [place] [address] 468[address] #### HA1C #### [facility] ([id number]) [address] [place] [address] Glucose [Mass/Vol] 79 mg/dL Normal 65-99 [facility] Comment on above: Performed By: #### C BCA, BMP #### [facility] ([id number]) [address] [place] [address] 520[address] #### HA1C #### [facility] ([id number]) [address] [place] [address] Potassium [Moles/Vol] 3.3 mmol/L Low 3.5-5.0 [facility] Comment on above: Performed By: #### C BCA, BMP #### [facility] ([id number]) [address] [place] [address] 11838 #### HA1C #### [facility] ([id number]) [address] [place] [address] Protein [Mass/Vol] 7.5 g/dL Normal 6.0-8.0 [facility] Comment on above: Performed By: #### C BCA, BMP #### [facility] ([id number]) [address] [place] [address] 480[address] #### HA1C #### [facility] ([id number]) [address] [place] [address] Sodium [Moles/Vol] 138 mmol/L Normal 134-146 [facility] Comment on above: Performed By: #### C BCA, BMP #### [facility] ([id number]) [address] [place] [address] #### HA1C #### [facility] ([id number]) [address] [place] [address] Urea nitrogen [Mass/Vol] 22 mg/dL Normal 5-27 [facility] Comment on above: Performed By: #### C BCA, BMP #### [facility] ([id number]) [address] [place] [address] 58[address] #### HA1C #### [facility] ([id number]) [address] [place] [address] CT BRAIN WO CONTon 4 CT BRAIN [...] Christy MD on 08/23/2024 6:02 AM Normal [facility] ETHANOLon 08-23-2024 Ethanol [Mass/Vol] mg/dL Normal 0.00-0.08 [facility] Comment on above: Result Comment: This report is intended for use in clinical monitoring or management of patients. Performed By: #### C , [facility], 1751-7, 40775-0, 2777-1, 2731-8, 64626-1 #### [facility] ([id number]) [address] [place] [address] Glucose Glucometer (BldC) [M ass/Vol]on 08-23-2024 Glucose [Mass/Vol] 267 mg/dL High 65-99 [facility] Glucose [Mass/Vol] 279 mg/dL High 65-99 [facility] Glucose [Mass/Vol] 298 mg/dL High 65-99 [facility] Glucose [Mass/Vol] 235 mg/dL High 65-99 [facility] Glucose [Mass/Vol] 141 mg/dL High 65-99 [facility] Glucose [Mass/Vol] 101 mg/dL High 65-99 [facility] Glucose [Mass/Vol] 83 mg/dL Normal 65-99 [facility] Glucose [Mass/Vol] 93 mg/dL Normal 65-99 [facility] Glucose [Mass/Vol] 144 mg/dL High 65-99 [facility] Glucose [Mass/Vol] 61 mg/dL Low 65-99 [facility] Glucose [Mass/Vol] 82 mg/dL Normal 65-99 [facility] Glucose [Mass/Vol] 176 mg/dL High 65-99 [facility] Glucose [Mass/Vol] 85 mg/dL Normal 65-99 [facility] Glucose [Mass/Vol] 91 mg/dL Normal 65-99 [facility] Glucose [Mass/Vol] 109 mg/dL High 65-99 [facility] Glucose [Mass/Vol] 55 mg/dL Low 65-99 [facility] LIPASEon 08-23-2024 Lipase [Catalytic activity/Vol] 30 U/L Normal 17-40 [facility] Comment on above: Performed By: #### WILSON MAI, 1751-05, , 2776-11, 2731-06, 57622-7 #### [facility] ([id number]) [address] [place] [address] Lactate (P obed) [Moles/Vol]o n 08-23-2024 Lactate [Moles/Vol] 2.0 mmol/L Normal 0.4-2.0 [facility] Comment on above: Performed By: #### WILSON MAI, 1751-05, , 2776-11, 8, 16161-7 #### [facility] ([id number]) [address] [place] [address] LACTATE W/REFLEX 2.9 mmol/L High 0.4-2.0 [facility] Comment on above: Performed By: #### WILSON MAI, 1751-05, , 2776-11, 2730-8, 04973-7 #### [facility] ([id number]) [address] [place] [address] MAGNESIUMon 08-23-2024 Magnesium [Mass/Vol] 2.7 mg/dL High 1.8-2.6 [facility] Comment on above: Performed By: #### WILSON MAI, , 05420-4, 7-1, 2731-8, 54734-5 #### [facility] ([id number]) [address] [place] [address] Magnesium [Mass/Vol] 1.6 mg/dL Low 1.8-2.6 [facility] Comment on above: Performed By: #### C BCA, BMP #### [facility] ([id number]) [address] [place] [address], [place] [address] #### HA1C #### [facility] ([id number]) [address] [facility] [place] [address] Myoglobin [Mass/Vol]on 08-23 SERUM MYOGLOBIN 97.6 ng/mL High 14.3-65.8 [facility] Comment on above: Performed By: #### C BC, BMP, 1751-05, 12163-5, 2776-1, 2730-8, 18986-4 #### [facility] ([id number]) [address] [place] [address] Natriuretic peptide B [Mass/ Vol]on 08-23-2024 Natriuretic peptide B (Bld) [Mass/Vol] 66 pg/mL Normal <100.0 [facility] Comment on above: Performed By: #### C BC, BMP, 1751-05, 69606-3, 2776-1, 2730-8, 68374-0 #### [facility] ([id number]) [address] [place] [address] POTASSIUMon 08-23-2024 Potassium [Moles/Vol] 5.4 mmol/L High 3.5-5.0 [facility] Comment on above: Performed By: #### C BC, BMP, 1750-, 85521-1, 7-1, 2731-8, 72837-6 #### [facility] ([id number]) [address] [place] [address] PROTIME AND INRon 08-23-2024 INR Coag (PPP) [Relative time] 1.0 {INR} Normal 0.8-1.1 [facility] Comment on above: Performed By: #### Renita ALLEN, BMP, 1750-7, 93991-5, 2777-1, 2731-8, 21633-0 #### [facility] ([id number]) [address] [place] [address] PT Coag (PPP) [Time] 11.7 s Normal 9.8-13.2 [facility] Comment on above: Result Comment: NEW REFERENCE RANGE Performed By: #### Renita ALLEN, BMP, 1750-7, 03968-9, 2777-1, 2731-8, 45534-6 #### [facility] ([id number]) [address] [place] [address] THYROID PROFILEon 08-23-2024 Free T4 [Mass/Vol] 1.05 ng/dL Normal 0.61-1.60 [facility] Comment on above: Performed By: #### Renita ALLEN, BMP, 1750-7, 20564-8, 2777-1, 2731-8, 36523-3 #### [facility] ([id number]) [address] [place] [address] TSH 0.38 uIU/mL Low 0.49-4.67 [facility] Comment on above: Performed By: #### Renita ALLEN, BMP, 1750-7, 34191-2, 2777-1, 2731-8, 09531-4 #### [facility] ([id number]) [address] [place] [address] Troponin I.cardiac High sens itivity method [Mass/Vol]on 08-23-2024 3 HOUR TROP I, HIGH SENSITIVITY 112 ng/L High <16 [facility] Comment on above: Result Comment: Elevations of hs-Troponin may be due to causes other than myocardial ischemia. Recommend serial hs-Troponin testing be performed. For the initial evaluation and management of chest pain patients, refer to the algorithms linked below. Emergency Patient: [email or web address] Inpatient: [email or web address]= acaea Performed By: #### C BC, BMP, 1751-7, 74892-7, 2777-1, 2731-8, 72055-3 #### [facility] ([id number]) [address] [place] [address] 1 HOUR TROP I, HIGH SENSITIVITY 72 ng/L High <16 [facility] Comment on above: Result Comment: Elevations of hs-Troponin may be due to causes other than myocardial ischemia. Recommend serial hs-Troponin testing be performed. For the initial evaluation and management of chest pain patients, refer to the algorithms linked below. Emergency Patient: [email or web address] Inpatient: [email or web address]= acaea Performed By: #### C BC, BMP, 1751-7, 33739-9, 2777-1, 2731-8, 94803-4 #### [facility] ([id number]) [address] [place] [address] TROPONIN I, HIGH SENSITIVITY 45 ng/L High <16 [facility] Comment on above: Result Comment: Elevations of hs-Troponin may be due to causes other than myocardial ischemia. Recommend serial hs-Troponin testing be performed. For the initial evaluation and management of chest pain patients, refer to the algorithms linked below. Emergency Patient: [email or web address]= [email or web address] Inpatient: [email or web address]= [email or web address] Performed By: #### C BC, BMP, 1751-7, 09796-3, 2777-1, 2731-8, 16107-1 #### [facility] ([id number]) [address] [place] [address] URINE CULTUREon 08-23-2024 Bacteria identified Cx Nom (U) CULTURE RESULTS NO GROWTH AT <1000 CFU/mL Normal [facility] Comment on above: Performed By: #### C BC, BMP, 175-7, 56532-2, 2777-1, 2731-8, 22442-4 #### [facility] ([id number]) [address] [place] [address] URN MACROSCOPIC NURon 2023 BILIRUBIN MARYJO Negative Normal NEG [facility] Comment on above: Performed By: #### C BC, BMP, 175-7, 42375-4, 2777-1, 2731-8, 75443-5 #### [facility] ([id number]) [address] [place] [address] BLOOD/HGB MARYJO Negative Normal NEG [facility] Comment on above: Performed By: #### C BC, BMP, 1751-7, 34146-7, 2777-1, 2731-8, 25090-9 #### [facility] ([id number]) [address] [place] [address] GLUCOSE MARYJO 100 mg/dL Abnormal NEG [facility] Comment on above: Performed By: #### C BC, BMP, 1751-7, 15703-4, 2777-1, 2731-8, 64705-2 #### [facility] ([id number]) [address] [place] [address] KETONES MARYJO Negative Normal NEG [facility] Comment on above: Performed By: #### C BC, BMP, 1751-7, 07924-0, 2777-1, 2731-8, 26565-2 #### [facility] ([id number]) [address] [place] [address] LEUKOCYTE ESTERASE MARYJO Negative Normal NEG [facility] Comment on above: Performed By: #### C BC, BMP, 1751-7, 22412-8, 2777-1, 2731-8, 26601-0 #### [facility] ([id number]) [address] [place] [address] NITRITE MARYJO Negative Normal NEG [facility] Comment on above: Performed By: #### Renita BC, BMP, 175-7, 18709-6, 2777-1, 2731-8, 11098-5 #### [facility] ([id number]) [address] [place] [address] PH MARYJO 6.5 Normal 5.0-8.5 [facility] Comment on above: Performed By: #### C BC, BMP, 175-7, 72974-2, 2777-1, 2731-8, 47460-0 #### [facility] ([id number]) [address] [place] [address] PROTEIN MARYJO Negative Normal NEG [facility] Comment on above: Performed By: #### Renita BC, BMP, 1751-7, 04841-1, 2777-1, 2731-8, 11702-5 #### [facility] ([id number]) [address] [place] [address] SPECIFIC GRAVITY MARYJO 1.015 Normal 1.003-1.035 [facility] Comment on above: Performed By: #### C BC, BMP, 1751-7, 65382-1, 7-1, 2731-8, 39273-3 #### [facility] ([id number]) [address] [place] [address] UROBILINOGEN MARYJO 0.2 eu/dL Normal <1.1 [facility] Comment on above: Performed By: #### C BC, BMP, 7, 02116-7, 2776-1, 2730-8, 44774-6 #### [facility] ([id number]) [address] [place] [address] XR CHEST 1 VWon 08-23-2024 XR CHEST [...] Christy MD on 08/23/2024 6:05 AM Normal [facility] aPTT Coag (PPP) [Time]on aPTT Coag (Bld) [Time] 24 s Low 26-37 [facility] Comment on above: Result Comment: NEW REFERENCE RANGE Performed By: #### C BC, BMP, 7, 27262-5, 2776-1, 273-8, 73297-5 #### [facility] ([id number]) [address] [place] [address] CBC AND AUTO DIFFon 08-14-20 24 ABSOLUTE BASOPHIL 0.0 X10E9/L Normal 0.0-0.2 [facility] Comment on above: Performed By: #### C BCA, CMP, LIVR, ####[facility] ([id number])[address] [place] [address] ABSOLUTE NEUTROPHIL 3.4 X10E9/L Normal 1.5-6.6 [facility] Comment on above: Performed By: #### C BCA, CMP, LIVR, ####[facility] ([id number])[address] [place] [address] Basophils/100 WBC (Bld) 0.2 % Normal [facility] Comment on above: Performed By: #### C BCA, CMP, LIVR, ####[facility] ([id number])[address] [place] [address] Eosinophils (Bld) [#/Vol] 0.0 10*3/uL Normal 0.0-0.4 [facility] Comment on above: Performed By: #### C BCA, CMP, LIVR, ####[facility] ([id number])[address] [place] [address] Eosinophils/100 WBC (Bld) 0.0 % Normal [facility] Comment on above: Performed By: #### C BCA, CMP, LIVR, ####[facility] ([id number])[address] [place] [address] Erythrocyte distribution width (RBC) [Ratio] 15.6 % High 11.5-15.0 [facility] Comment on above: Performed By: #### C BCA, CMP, LIVR, ####[facility] ([id number])[address] [place] [address] Hematocrit (Bld) [Volume fraction] 30.5 % Low 35-47 [facility] Comment on above: Performed By: #### C BCA, CMP, LIVR, ####[facility] ([id number])[address] [place] [address] Hemoglobin (Bld) [Mass/Vol] 9.9 g/dL Low 11.7-15.5 [facility] Comment on above: Performed By: #### C BCA, CMP, LIVR, ####[facility] ([id number])[address] [place] [address] Lymphocytes (Bld) [#/Vol] 1.9 10*3/uL Normal 1.0-3.5 [facility] Comment on above: Performed By: #### C BCA, CMP, LIVR, ####[facility] ([id number])[address] [place] [address] Lymphocytes/100 WBC (Bld) 29.8 % Normal [facility] Comment on above: Performed By: #### C BCA, CMP, LIVR, ####[facility] ([id number])[address] [place] [address] MCH (RBC) [Entitic mass] 27.6 pg Normal 27-34 [facility] Comment on above: Performed By: #### C BCA, CMP, LIVR, 64433-2 ####[facility] ([id number])[address] [place] [address] MCHC (RBC) [Mass/Vol] 32.5 g/dL Normal 32-36 [facility] Comment on above: Performed By: #### C BCA, CMP, LIVR, ####[facility] ([id number])[address] [place] [address] MCV (RBC) [Entitic vol] 85 fL Normal 80-100 [facility] Comment on above: Performed By: #### C BCA, CMP, LIVR, ####[facility] ([id number])[address] [place] [address] Monocytes (Bld) [#/Vol] 1.0 10*3/uL High 0-0.9 [facility] Comment on above: Performed By: #### C BCA, CMP, LIVR, 08045-6 ####[facility] ([id number])[address] [place] [address] Monocytes/100 WBC (Bld) 15.5 % Normal [facility] Comment on above: Performed By: #### C BCA, CMP, LIVR, 41948-0 ####[facility] ([id number])[address] [place] [address] Neutrophils/100 WBC (Bld) 54.5 % Normal [facility] Comment on above: Performed By: #### C BCA, CMP, LIVR, 22783-8 ####[facility] ([id number])[address] [place] [address] Platelet mean volume (Bld) [Entitic vol] 8.3 fL Normal 7-12 [facility] Comment on above: Performed By: #### C BCA, CMP, LIVR, 08619-4 ####[facility] ([id number])[address] [place] [address] Platelets (Bld) [#/Vol] 228 10*3/uL Normal 150-450 [facility] Comment on above: Performed By: #### C BCA, CMP, LIVR, 62550-4 ####[facility] ([id number])[address] [place] [address] [place] [address] RBC COUNT 3.60 X10E12/L Low 3.80-5.20 [facility] Comment on above: Performed By: #### C BCA, CMP, LIVR, ####[facility] ([id number])[address] [place] [address] WBC (Bld) [#/Vol] 6.3 10*3/uL Normal 4.0-11.0 [facility] Comment on above: Performed By: #### C BCA, CMP, LIVR, 80635-8 ####[facility] ([id number])[address] [place] [address] [place] [address] COMPREHENSIVE METABOLIC PANE Dickson 08-14-2024 Albumin [Mass/Vol] 3.4 g/dL Normal 3.2-5.3 [facility] Comment on above: Performed By: #### C BCA, CMP, LIVR, 34140-8 ####[facility] ([id number])[address] [place] [address] ALP [Catalytic activity/Vol] 70 U/L Normal 39-130 [facility] Comment on above: Performed By: #### C BCA, CMP, LIVR, ####[facility] ([id number])[address] [place] [address] ALT [Catalytic activity/Vol] 14 U/L Normal 0-31 [facility] Comment on above: Performed By: #### C BCA, CMP, LIVR, 51146-1 ####[facility] ([id number])[address] [place] [address] [place] [address] Anion gap [Moles/Vol] 10 mmol/L Normal 5-15 [facility] Comment on above: Performed By: #### C BCA, CMP, LIVR, 94505-8 ####[facility] ([id number])[address] [place] [address] [place] [address] AST [Catalytic activity/Vol] 19 U/L Normal 0-41 [facility] Comment on above: Performed By: #### C BCA, CMP, LIVR, 04941-9 ####[facility] ([id number])[address] [place] [address] Bilirubin [Mass/Vol] 0.4 mg/dL Normal 0.3-1.2 [facility] Comment on above: Performed By: #### C BCA, CMP, LIVR, 22168-7 ####[facility] ([id number])[address] [place] [address] Calcium [Mass/Vol] 9.0 mg/dL Normal 8.5-10.5 [facility] Comment on above: Performed By: #### C BCA, CMP, LIVR, 05144-1 ####[facility] ([id number])[address] [place] [address] Chloride [Moles/Vol] 103 mmol/L Normal 98-109 [facility] Comment on above: Performed By: #### C BCA, CMP, LIVR, 84106-7 ####[facility] ([id number])[address] [place] [address] 26294 CO2 [Moles/Vol] 22 mmol/L Normal 22-32 [facility] Comment on above: Performed By: #### C BCA, CMP, LIVR, 39804-7 ####[facility] ([id number])[address] [place] [address] 84608 Creatinine [Mass/Vol] 1.39 mg/dL High 0.40-1.00 [facility] Comment on above: Result Comment: METH OD TRACEABLE TO IDMS STANDARD Performed By: #### C BCA, CMP, LIVR, 86885-6 ####[facility] ([id number])[address] [place] [address] 97812 GFR/1.73 sq M.predicted among non-blacks MDRD (S/P/Bld) [Vol rate/Area] 39 mL/min/{1.73_m2} Low >59 [facility] Comment on above: Result Comment: Reported eGFR is based on the CKD-EPI 1 equation that does not use a race coefficient. Performed By: #### C BCA, CMP, LIVR, 47846-8 ####[facility] ([id number])[address] [place] [address] [place] [address] Glucose [Mass/Vol] 102 mg/dL High 65-99 [facility] Comment on above: Performed By: #### C BCA, CMP, LIVR, 31312-4 ####[facility] ([id number])[address] [place] [address] 10233 Potassium [Moles/Vol] 4.3 mmol/L Normal 3.5-5.0 [facility] Comment on above: Performed By: #### C BCA, CMP, LIVR, 96794-4 ####[facility] ([id number])[address] [place] [address] 85142 Protein [Mass/Vol] 7.0 g/dL Normal 6.0-8.0 [facility] Comment on above: Performed By: #### C BCA, CMP, LIVR, 76760-1 ####[facility] ([id number])[address] [place] [address] 85975 Sodium [Moles/Vol] 135 mmol/L Normal 134-146 [facility] Comment on above: Performed By: #### C BCA, CMP, LIVR, 80615-8 ####[facility] ([id number])[address] [place] [address] 83570 Urea nitrogen [Mass/Vol] 40 mg/dL High 5-27 [facility] Comment on above: Performed By: #### C BCA, CMP, LIVR, 18804-7 ####[facility] [facility] ([id number])[address] [place] [address] Glucose Glucometer (BldC) [M ass/Vol]on 08-14-2024 Glucose [Mass/Vol] 372 mg/dL High 65-99 [facility] Glucose [Mass/Vol] 204 mg/dL High 65-99 [facility] LIVER PANELon 08-14-2024 Bilirubin.indirect [Mass/Vol] mg/dL Normal 0.0-0.4 [facility] Comment on above: Performed By: #### C BCA, CMP, LIVR, ####[facility] ([id number])[address] [place] [address] MAGNESIUMon 08-14-2024 Magnesium [Mass/Vol] 1.8 mg/dL Normal 1.8-2.6 [facility] Comment on above: Performed By: #### C BCA, BMP #### [facility] ([id number]) [address] [place] [address] #### HA1C #### [facility] ([id number]) [address] [place] [address] CBC AND AUTO DIFFon 08-13-20 24 ABSOLUTE BASOPHIL 0.0 X10E9/L Normal 0.0-0.2 [facility] Comment on above: Performed By: #### C BC, BMP, 1751-05, , 2776-1, 2731-8, 95150-6 #### [facility] ([id number]) [address] [place] [address] ABSOLUTE NEUTROPHIL 4.4 X10E9/L Normal 1.5-6.6 [facility] Comment on above: Performed By: #### Renita BC, BMP, 1751-05, , 2776-1, 273-8, 60208-5 #### [facility] ([id number]) [address], [address] [place] [address] Basophils/100 WBC (Bld) 0.2 % Normal [facility] Comment on above: Performed By: #### C BC, BMP, 1751-05, , 2776-1, 2731-8, 78332-8 #### [facility] ([id number]) [address], [address] [place] [address] Eosinophils (Bld) [#/Vol] 0.0 10*3/uL Normal 0.0-0.4 [facility] Comment on above: Performed By: #### C BC, BMP, 1750-, 70501-2, 2777-1, 2731-8, 71116-0 #### [facility] ([id number]) [address] [place] [address] Eosinophils/100 WBC (Bld) 0.2 % Normal [facility] Comment on above: Performed By: #### C BC, BMP, 1750-, 21033-5, 7-1, 273-8, 31251-2 #### [facility] ([id number]) [address], [facility] [address] [place] [address] Erythrocyte distribution width (RBC) [Ratio] 16.1 % High 11.5-15.0 [facility] Comment on above: Performed By: #### C BC, BMP, 1751-05, 41016-3, 7-1, 273-8, 31209-7 #### [facility] ([id number]) [address] [address] [place] [address] Hematocrit (Bld) [Volume fraction] 28.2 % Low 35-47 [facility] Comment on above: Performed By: #### C BC, BMP, 1751-05, 28151-8, 2776-1, 273-8, 26103-7 #### [facility] ([id number]) [address], [address] [place] [address] Hemoglobin (Bld) [Mass/Vol] 9.1 g/dL Low 11.7-15.5 [facility] Comment on above: Performed By: #### C BC, BMP, 1750-, 45567-2, 7-1, 2731-8, 75761-0 #### [facility] ([id number]) [address] [place] [address] Lymphocytes (Bld) [#/Vol] 1.1 10*3/uL Normal 1.0-3.5 [facility] Comment on above: Performed By: #### C BC, BMP, 1750-, 86628-7, 2777-1, 2731-8, 44972-9 #### [facility] ([id number]) [address], [facility] [address] [place] [address] Lymphocytes/100 WBC (Bld) 17.4 % Normal [facility] Comment on above: Performed By: #### Renita ALLEN, BMP, 1751-05, 59660-2, 2776-, 273-8, 29964-5 #### [facility] ([id number]) [address], [facility] [address] [place] [address] MCH (RBC) [Entitic mass] 27.5 pg Normal 27-34 [facility] Comment on above: Performed By: #### Renita BC, BMP, 1751-05, , 2776-1, 273-8, 88888-5 #### [facility] ([id number]) [address], [facility] [address] [place] [address] MCHC (RBC) [Mass/Vol] 32.2 g/dL Normal 32-36 [facility] Comment on above: Performed By: #### Renita BC, BMP, 1751-05, 81231-5, 2776-, 273-8, 77381-6 #### [facility] ([id number]) [address], [facility] [address] [place] [address] MCV (RBC) [Entitic vol] 85 fL Normal 80-100 [facility] Comment on above: Performed By: #### Renita BC, BMP, 1750-, 35954-0, 7-1, 2731-8, 17800-3 #### [facility] ([id number]) [address], [facility] [address] [place] [address] Monocytes (Bld) [#/Vol] 0.9 10*3/uL Normal 0-0.9 [facility] Comment on above: Performed By: #### Renita BC, BMP, 1750-, 14073-6, 2777-1, 2731-8, 81440-7 #### [facility] ([id number]) [address], [address] [place] [address] Monocytes/100 WBC (Bld) 13.8 % Normal [facility] Comment on above: Performed By: #### Renita ALLEN, BMP, 1750-, 16154-0, 7-1, 2731-8, 08998-7 #### [facility] ([id number]) [address], [address] [place] [address] Neutrophils/100 WBC (Bld) 68.4 % Normal [facility] Comment on above: Performed By: #### Renita ALLEN, BMP, 1751-05, 88541-2, 2776-1, 2731-8, 88672-5 #### [facility] ([id number]) [address], [address] [place] [address] Platelet mean volume (Bld) [Entitic vol] 8.6 fL Normal 7-12 [facility] Comment on above: Performed By: #### Renita ALLEN, BMP, 1751-05, 91596-7, 2776-1, 273-8, 00581-3 #### [facility] ([id number]) [address], [address] [place] [address] Platelets (Bld) [#/Vol] 207 10*3/uL Normal 150-450 [facility] Comment on above: Performed By: #### Renita BC, BMP, 1750-, 59365-9, 2777-1, 2731-8, 46134-1 #### [facility] ([id number]) [address], [address] [place] [address] RBC COUNT 3.30 X10E12/L Low 3.80-5.20 [facility] Comment on above: Performed By: #### C BC, BMP, 175-7, 82835-4, 2777-1, 2731-8, 01246-3 #### [facility] ([id number]) [address], [address] [place] [address] WBC (Bld) [#/Vol] 6.5 10*3/uL Normal 4.0-11.0 [facility] Comment on above: Performed By: #### C BC, BMP, 1750-7, 18355-3, 2777-1, 2731-8, 57316-4 #### [facility] ([id number]) [address], [address] [place] [address] COMPREHENSIVE METABOLIC PANE Dickson 08-13-2024 Albumin [Mass/Vol] 3.4 g/dL Normal 3.2-5.3 [facility] Comment on above: Performed By: #### C BC, BMP, 1750-7, 37768-1, 2777-1, 2731-8, 30870-5 #### [facility] ([id number]) [address], [address] [place] [address] Performed By: #### C BCA, CMP, LIVR, 42820-1 ####[facility] ([id number])[address] [place] [address] ALP [Catalytic activity/Vol] 74 U/L Normal 39-130 [facility] Comment on above: Performed By: #### C BC, BMP, 175-7, 99274-5, 2777-1, 2731-8, 80153-9 #### [facility] ([id number]) [address], [address] [place] [address] Performed By: #### C BCA, CMP, LIVR, 41689-1 ####[facility] ([id number])[address] [place] [address] ALT [Catalytic activity/Vol] 13 U/L Normal 0-31 [facility] Comment on above: Performed By: #### C BC, BMP, 175-7, 01992-1, 2777-1, 2731-8, 39904-7 #### [facility] ([id number]) [address] [facility] [place] [address] Performed By: #### C BCA, CMP, LIVR, 41458-1 ####[facility] ([id number])[address] [place] [address] Anion gap [Moles/Vol] 8 mmol/L Normal 5-15 [facility] Comment on above: Performed By: #### C BC, BMP, 1750-7, 53001-9, 2777-1, 2731-8, 79774-6 #### [facility] ([id number]) [address] [facility] [place] [address] AST [Catalytic activity/Vol] 17 U/L Normal 0-41 [facility] Comment on above: Performed By: #### C BC, BMP, 1750-7, 72030-9, 2777-1, 2731-8, 46269-3 #### [facility] ([id number]) [address] [facility] [place] [address] Performed By: #### C BCA, CMP, LIVR, 91575-9 ####[facility] ([id number])[address] [place] [address] Bilirubin [Mass/Vol] 0.3 mg/dL Normal 0.3-1.2 [facility] Comment on above: Performed By: #### C BC, BMP, 175-7, 56947-7, 2777-1, 2731-8, 12124-6 #### [facility] ([id number]) [address] [facility] [place] [address] Performed By: #### C BCA, CMP, LIVR, 82310-9 ####[facility] ([id number])[address] [place] [address] Calcium [Mass/Vol] 8.9 mg/dL Normal 8.5-10.5 [facility] Comment on above: Performed By: #### C BC, BMP, 1751-05, , 2776-1, 273-8, 40375-9 #### [facility] ([id number]) [address], [address] [place] [address] Chloride [Moles/Vol] 101 mmol/L Normal 98-109 [facility] Comment on above: Performed By: #### C BC, BMP, 1751-05, , 2776-1, 273-8, 50170-1 #### [facility] ([id number]) [address], [address] [place] [address] CO2 [Moles/Vol] 27 mmol/L Normal 22-32 [facility] Comment on above: Performed By: #### C BC, BMP, 1751-05, , 2776-1, 2731-8, 28913-9 #### [facility] ([id number]) [address], [address] [place] [address] Creatinine [Mass/Vol] 1.43 mg/dL High 0.40-1.00 [facility] Comment on above: Result Comment: METH OD TRACEABLE TO IDMS STANDARD Performed By: #### C BC, BMP, 1751-05, , 2776-1, 2731-8, 83883-7 #### [facility] ([id number]) [address], [address] [place] [address] GFR/1.73 sq M.predicted among non-blacks MDRD (S/P/Bld) [Vol rate/Area] 38 mL/min/{1.73_m2} Low >59 [facility] Comment on above: Result Comment: Reported eGFR is based on the CKD-EPI 2020 equation that does not use a race coefficient. Performed By: #### C BC, BMP, 1751-05, , 2776-1, 2731-8, 24875-6 #### [facility] ([id number]) [address], [address] [place] [address] Glucose [Mass/Vol] 189 mg/dL High 65-99 [facility] Comment on above: Performed By: #### C BC, BMP, 1751-05, , 2776-1, 273-8, 57980-0 #### [facility] ([id number]) [address], [address] [place] [address] Potassium [Moles/Vol] 4.8 mmol/L Normal 3.5-5.0 [facility] Comment on above: Performed By: #### C BC, BMP, 1751-05, , 2776-1, 273-8, 77825-5 #### [facility] ([id number]) [address], [address] [place] [address] Protein [Mass/Vol] 6.9 g/dL Normal 6.0-8.0 [facility] Comment on above: Performed By: #### C BC, BMP, 1751-05, , 2776-, 273-8, 00130-2 #### [facility] ([id number]) [address], [address] [place] [address] Performed By: #### C BCA, CMP, LIVR, ####[facility] ([id number])[address] [place] [address] Sodium [Moles/Vol] 136 mmol/L Normal 134-146 [facility] Comment on above: Performed By: #### C BC, BMP, 1751-05, 69343-4, 7-1, 2731-8, 31870-3 #### [facility] ([id number]) [address], [address] [place] [address] Urea nitrogen [Mass/Vol] 33 mg/dL High 5-27 [facility] Comment on above: Performed By: #### C BC, BMP, 1751-05, , 7-1, 2731-8, 46228-0 #### [facility] ([id number]) [address], [address] [place] [address] Glucose Glucometer (BldC) [M ass/Vol]on 08-13-2024 Glucose [Mass/Vol] 233 mg/dL High 65-99 [facility] Glucose [Mass/Vol] 261 mg/dL High 65-99 [facility] Glucose [Mass/Vol] 235 mg/dL High 65-99 [facility] Glucose [Mass/Vol] 136 mg/dL High 65-99 [facility] LIVER PANELon 08-13-2024 Bilirubin.direct [Mass/Vol] 0.1 mg/dL Normal 0.0-0.4 [facility] Comment on above: Performed By: #### C BCA, CMP, LIVR, 94863-3 ####[facility] ([id number])[address] [place] [address] MAGNESIUMon 08-13-2024 Magnesium [Mass/Vol] 1.9 mg/dL Normal 1.8-2.6 [facility] Comment on above: Performed By: #### C BCA, CMP, LIVR, 39122-9 ####[facility] ([id number])[address] [place] [address] BLOOD CULTUREon 08-12-2024 Bacteria identified Aer cx Nom (Bld) SPECIMEN NOTES l hand CULTURE RESULTS NO GROWTH 5 DAYS Normal [facility] Comment on above: Performed By: #### C BC, BMP, 1751-05, 34049-3, 2776-, 2730-8, 33878-1 #### [facility] ([id number]) [address] [place] [address] Bacteria identified Aer cx Nom (Bld) SPECIMEN NOTES r hand CULTURE RESULTS NO GROWTH 5 DAYS Normal [facility] Comment on above: Performed By: #### C BC, BMP, 1751-05, 00910-2, 2776-, 2730-8, 06216-1 #### [facility] ([id number]) [address], [address] [place] [address] CBC AND AUTO DIFFon 08-12-20 24 ABSOLUTE BASOPHIL 0.0 X10E9/L Normal 0.0-0.2 [facility] Comment on above: Performed By: #### C TIFFANY, BMP, 1751-05, 69852-0, 2776-, 2730-8, 16069-5 #### [facility] ([id number]) [address] [place] [address] ABSOLUTE NEUTROPHIL 5.8 X10E9/L Normal 1.5-6.6 [facility] Comment on above: Performed By: #### C TIFFANY, BMP, 1751-05, 73729-3, 2776-, 2730-8, 63329-5 #### [facility] ([id number]) [address], [address] [place] [address] Basophils/100 WBC (Bld) 0.5 % Normal [facility] Comment on above: Performed By: #### C BC, BMP, 1751-05, 92110-9, 2776-, 2730-8, 28550-3 #### [facility] ([id number]) [address] [place] [address] Eosinophils (Bld) [#/Vol] 0.1 10*3/uL Normal 0.0-0.4 [facility] Comment on above: Performed By: #### C BC, BMP, 1750-7, 85602-8, 2777-1, 2731-8, 89424-5 #### [facility] ([id number]) [address] [place] [address] Eosinophils/100 WBC (Bld) 1.5 % Normal [facility] Comment on above: Performed By: #### C BC, BMP, 1750-, 64141-1, 7-1, 2731-8, 89067-4 #### [facility] ([id number]) [address] [place] [address] Erythrocyte distribution width (RBC) [Ratio] 16.1 % High 11.5-15.0 [facility] Comment on above: Performed By: #### C BC, BMP, 1750-, 84594-0, 7-1, 273-8, 36003-5 #### [facility] ([id number]) [address] [place] [address] Hematocrit (Bld) [Volume fraction] 30.8 % Low 35-47 [facility] Comment on above: Performed By: #### C BC, BMP, 1750-, 37756-9, 7-1, 273-8, 83620-6 #### [facility] ([id number]) [address] [place] [address] Hemoglobin (Bld) [Mass/Vol] 10.1 g/dL Low 11.7-15.5 [facility] Comment on above: Performed By: #### C BC, BMP, 1750-, 48098-5, 7-1, 2731-8, 25597-0 #### [facility] ([id number]) [address] [place] [address] Lymphocytes (Bld) [#/Vol] 0.5 10*3/uL Low 1.0-3.5 [facility] Comment on above: Performed By: #### C BC, BMP, 1750-, 08004-4, 2776-1, 273-8, 77967-3 #### [facility] ([id number]) [address], [address] [place] [address] Lymphocytes/100 WBC (Bld) 7.4 % Normal [facility] Comment on above: Performed By: #### C BC, BMP, 1751-05, 52474-9, 2776-, 273-8, 64174-1 #### [facility] ([id number]) [address] [place] [address] MCH (RBC) [Entitic mass] 27.8 pg Normal 27-34 [facility] Comment on above: Performed By: #### C BC, BMP, 1751-05, 05008-8, 2776-, 2730-8, 14195-8 #### [facility] ([id number]) [address] [place] [address] MCHC (RBC) [Mass/Vol] 32.7 g/dL Normal 32-36 [facility] Comment on above: Performed By: #### C BC, BMP, 1751-05, 53831-4, 2776-, 2730-8, 44376-7 #### [facility] ([id number]) [address] [place] [address] MCV (RBC) [Entitic vol] 85 fL Normal 80-100 [facility] Comment on above: Performed By: #### Renita BC, BMP, 1750-, 55859-8, 2776-, 273-8, 46525-9 #### [facility] ([id number]) [address] [place] [address] Monocytes (Bld) [#/Vol] 0.8 10*3/uL Normal 0-0.9 [facility] Comment on above: Performed By: #### C BC, BMP, 1750-7, 75426-5, 2777-1, 2731-8, 47963-2 #### [facility] ([id number]) [address] [place] [address] Monocytes/100 WBC (Bld) 11.4 % Normal [facility] Comment on above: Performed By: #### Renita BC, BMP, 1750-7, 63929-9, 2777-1, 2731-8, 22446-6 #### [facility] ([id number]) [address], [address] [place] [address] Neutrophils/100 WBC (Bld) 79.2 % Normal [facility] Comment on above: Performed By: #### Renita BC, BMP, 1750-7, 96687-9, 2777-1, 2731-8, 63262-8 #### [facility] ([id number]) [address] [place] [address] Platelet mean volume (Bld) [Entitic vol] 8.2 fL Normal 7-12 [facility] Comment on above: Performed By: #### Renita BC, BMP, 1750-7, 26474-5, 2777-1, 2731-8, 97374-0 #### [facility] ([id number]) [address] [place] [address] Platelets (Bld) [#/Vol] 260 10*3/uL Normal 150-450 [facility] Comment on above: Performed By: #### Renita BC, BMP, 1750-7, 93938-8, 2777-1, 2731-8, 53313-8 #### [facility] ([id number]) [address] [place] [address] RBC COUNT 3.62 X10E12/L Low 3.80-5.20 [facility] Comment on above: Performed By: #### C BC, BMP, 175-7, 69260-2, 2777-1, 2731-8, 11969-8 #### [facility] ([id number]) [address], [address] [place] [address] WBC (Bld) [#/Vol] 7.3 10*3/uL Normal 4.0-11.0 [facility] Comment on above: Performed By: #### C BC, BMP, 1750-7, 87214-9, 2777-1, 2731-8, 47023-5 #### [facility] ([id number]) [address] [place] [address] COMPREHENSIVE METABOLIC PANE Dickson 08-12-2024 Albumin [Mass/Vol] 4.1 g/dL Normal 3.2-5.3 [facility] Comment on above: Performed By: #### C BC, BMP, 1750-7, 59052-3, 2777-1, 2731-8, 85285-4 #### [facility] ([id number]) [address] [place] [address] ALP [Catalytic activity/Vol] 87 U/L Normal 39-130 [facility] Comment on above: Performed By: #### C BC, BMP, 1750-7, 77328-0, 2777-1, 2731-8, 49235-9 #### [facility] ([id number]) [address] [place] [address] ALT [Catalytic activity/Vol] 13 U/L Normal 0-31 [facility] Comment on above: Performed By: #### C BC, BMP, 1750-7, 21404-2, 2777-1, 2731-8, 42033-4 #### [facility] ([id number]) [address] [place] [address] Anion gap [Moles/Vol] 8 mmol/L Normal 5-15 [facility] Comment on above: Performed By: #### C BC, BMP, 1750-7, 16233-9, 2777-1, 2731-8, 08377-7 #### [facility] ([id number]) [address] [place] [address] AST [Catalytic activity/Vol] 17 U/L Normal 0-41 [facility] Comment on above: Performed By: #### C BC, BMP, 1750-7, 34030-7, 2777-1, 2731-8, 03021-5 #### [facility] ([id number]) [address] [place] [address] Bilirubin [Mass/Vol] 0.4 mg/dL Normal 0.3-1.2 [facility] Comment on above: Performed By: #### C BC, BMP, 1750-7, 60385-1, 7-1, 2731-8, 71492-3 #### [facility] ([id number]) [address] [place] [address] Calcium [Mass/Vol] 9.0 mg/dL Normal 8.5-10.5 [facility] Comment on above: Performed By: #### C BC, BMP, 1750-7, 26018-8, 7-1, 2731-8, 41773-8 #### [facility] ([id number]) [address] [place] [address] Chloride [Moles/Vol] 101 mmol/L Normal 98-109 [facility] Comment on above: Performed By: #### C BC, BMP, 1750-7, 52073-9, 2777-1, 2731-8, 04779-3 #### [facility] ([id number]) [address] [place] [address] CO2 [Moles/Vol] 27 mmol/L Normal 22-32 [facility] Comment on above: Performed By: #### C BC, BMP, 1750-7, 77659-7, 2777-1, 2731-8, 52026-8 #### [facility] ([id number]) [address] [address] [place] [address] Creatinine [Mass/Vol] 1.48 mg/dL High 0.40-1.00 [facility] Comment on above: Result Comment: METH OD TRACEABLE TO IDMS STANDARD Performed By: #### C BC, BMP, 175-7, 11922-0, 2777-1, 2731-8, 41138-9 #### [facility] ([id number]) [address], [facility] [address] [place] [address] GFR/1.73 sq M.predicted among non-blacks MDRD (S/P/Bld) [Vol rate/Area] 36 mL/min/{1.73_m2} Low >59 [facility] Comment on above: Result Comment: Reported eGFR is based on the CKD-EPI 2020 equation that does not use a race coefficient. Performed By: #### C BC, BMP, 1750-7, 36821-8, 2777-1, 2731-8, 97641-8 #### [facility] ([id number]) [address] [address] [place] [address] Glucose [Mass/Vol] 271 mg/dL High 65-99 [facility] Comment on above: Performed By: #### C BC, BMP, 1750-7, 60994-1, 2777-1, 2731-8, 51295-8 #### [facility] ([id number]) [address], [address] [place] [address] Potassium [Moles/Vol] 4.8 mmol/L Normal 3.5-5.0 [facility] Comment on above: Performed By: #### C BC, BMP, 175-7, 48701-2, 2777-1, 2731-8, 72451-1 #### [facility] ([id number]) [address] [address] [place] [address] Protein [Mass/Vol] 7.6 g/dL Normal 6.0-8.0 [facility] Comment on above: Performed By: #### C BC, BMP, 1751-7, 65675-9, 2777-1, 2731-8, 72796-4 #### [facility] ([id number]) [address], [address] [place] [address] Sodium [Moles/Vol] 136 mmol/L Normal 134-146 [facility] Comment on above: Performed By: #### C BC, BMP, 1750-7, 40593-7, 2777-1, 2731-8, 17984-7 #### [facility] ([id number]) [address], [address] [place] [address] Urea nitrogen [Mass/Vol] 33 mg/dL High 5-27 [facility] Comment on above: Performed By: #### C BC, BMP, 1750-7, 11705-5, 2777-1, 2731-8, 48601-5 #### [facility] ([id number]) [address], [address] [place] [address] Fibrin D-dimer DDU (PPP) [Ma ss/Vol]on 08-12-2024 D DIMER 1146 ng/mL DDU High <255 [facility] Comment on above: Result Comment: Results [...] Performed By: #### C BC, BMP, 175-7, 80241-7, 2777-1, 2731-8, 53830-7 #### [facility] ([id number]) [address], [address] [place] [address] Glucose Glucometer (BldC) [M ass/Vol]on 08-12-2024 Glucose [Mass/Vol] 313 mg/dL High 65-99 [facility] Glucose [Mass/Vol] 255 mg/dL High 65-99 [facility] Glucose [Mass/Vol] 113 mg/dL High 65-99 [facility] Glucose [Mass/Vol] 161 mg/dL High 65-99 [facility] LEGIONELLA URINE AGon 2023 L. pneumophila Ag IA Ql (U) LEGIONELLA URINE AG Negative (qualifier value) NEGATIVE FOR L.PNEUMOPHILA SEROGROUP 1 ANTIGEN Normal [facility] Comment on above: Performed By: #### Renita ALLEN, BMP, 1751-05, , 2776-, 273-8, 38821-1 #### [facility] ([id number]) [address], [address] [place] [address] LIVER PANELon 08-12-2024 Albumin [Mass/Vol] 3.9 g/dL Normal 3.2-5.3 [facility] Comment on above: Performed By: #### Renita ALLEN, BMP, 1751-05, , 2776-, 273-8, 27574-3 #### [facility] ([id number]) [address], [address] [place] [address] Bilirubin [Mass/Vol] 0.1 mg/dL Low 0.3-1.2 [facility] Comment on above: Performed By: #### Renita BC, BMP, 1751-05, , 2776-1, 273-8, 50161-3 #### [facility] ([id number]) [address], [address] [place] [address] Bilirubin.indirect [Mass/Vol] mg/dL Normal 0.0-0.4 [facility] Comment on above: Performed By: #### Renita BC, BMP, 1751-05, 75311-2, 2776-1, 273-8, 06364-8 #### [facility] ([id number]) [address], [address] [place] [address] Protein [Mass/Vol] 7.5 g/dL Normal 6.0-8.0 [facility] Comment on above: Performed By: #### C WILSON ALLEN, 1751-7, 49869-6, 2777-1, 2731-8, 87195-7 #### [facility] ([id number]) [address], [address] [place] [address] Lactate (P obed) [Moles/Vol]o n 08-12-2024 LACTATE W/REFLEX 0.9 mmol/L Normal 0.4-2.0 [facility] Comment on above: Result Comment: Result did not trigger repeat Lactate, re-order if needed. Performed By: #### C TFIFANY, WILSON, 1751-7, 54062-7, 2777-1, 2731-8, 07907-1 #### [facility] ([id number]) [address], [address] [place] [address] NM PULM PERFUSION SCANon NM PULM PERFUSION [...] Vanegas MD on 08/12/2024 2:07 PM Normal [facility] Procalcitonin IA [Mass/Vol]o n 08-12-2024 PROCALCITONIN 0.05 ng/mL High <0.05 [facility] Comment on above: Result Comment: NOTE <0.50 ng/mL - Low risk of severe sepsis and/or septic shock. <2.00 ng/mL - Recommend retesting within 6-24 hours. >2.00 ng/mL - High risk of sepsis and/or septic shock. Performed By: #### C TIFFANY BMP, 1751-7, 24988-5, 2777-1, 2731-8, 96188-9 #### [facility] ([id number]) [address] [place] [address] S PNEUMONIAE AG Uon 08-12-20 24 S. pneumoniae Ag Ql (U) Negative Normal NEG [facility] Comment on above: Performed By: #### C BC, BMP, 1751-7, 17729-0, 2777-1, 2731-8, 05487-2 #### [facility] ([id number]) [address] [place] [address] SARS/FLU A+B/RSV by NAAT/Mol ecularon 08-12-2024 SARS/FLU [...] operators who are performing tests using either [employer] or [employer] systems and is limited to laboratories that [...] repeat. Fact Sheet for Healthcare Providers: https://www.fda.gov/med ia/504184/download Fact Sheet for Patients: https://www.fda.gov/med ia/084773/download Normal [facility] Comment on above: Performed By: #### C WILSON ALLEN, 1751-05, 17925-1, 2776-1, 2730-8, 24043-5 #### [facility] ([id number]) [address] [place] [address], [address] [place] [address] URINE CULTUREon 08-12-2024 Bacteria identified Cx Nom [...] F TRIMETH/SULFAMETHOXAZOL E S <=1/19 F Susceptible [facility] Comment on above: Performed By: #### 6 30-4 ####[facility] ([id number])[address] [place] [address], [address] [address] URN MACROSCOPIC NURon 2023 BILIRUBIN MARYJO Negative Normal NEG [facility] Comment on above: Performed By: #### C WILSON ALLEN, 1750-7, 01009-8, 7-1, 2731-8, 80889-0 #### [facility] ([id number]) [address], [address] [place] [address] BLOOD/HGB MARYJO Negative Normal NEG [facility] Comment on above: Performed By: #### C BC, BMP, 175-7, 23561-2, 2777-1, 2731-8, 73007-9 #### [facility] ([id number]) [address], [address] [place] [address] GLUCOSE MARYJO 250 mg/dL Abnormal NEG [facility] Comment on above: Performed By: #### C BC, BMP, 1750-7, 38662-4, 2777-1, 2731-8, 13253-2 #### [facility] ([id number]) [address], [address] [place] [address] KETONES MARYJO Negative Normal NEG [facility] Comment on above: Performed By: #### Renita BC, BMP, 1750-7, 40525-4, 2777-1, 2731-8, 35829-2 #### [facility] ([id number]) [address], [address] [place] [address] LEUKOCYTE ESTERASE MARYJO Trace Abnormal NEG [facility] Comment on above: Performed By: #### C BC, BMP, 1750-7, 61328-4, 2777-1, 2731-8, 43945-4 #### [facility] ([id number]) [address], [address] [place] [address] NITRITE MARYJO Positive Abnormal NEG [facility] Comment on above: Performed By: #### C BC, BMP, 1750-7, 73168-5, 2777-1, 2731-8, 88486-5 #### [facility] ([id number]) [address], [address] [place] [address] PH MARYJO 7.0 Normal 5.0-8.5 [facility] Comment on above: Performed By: #### C BC, BMP, 1750-7, 67077-8, 2777-1, 2731-8, 32798-2 #### [facility] ([id number]) [address], [facility] [address] [place] [address] PROTEIN MARYJO 30 mg/dL Abnormal NEG [facility] Comment on above: Performed By: #### C BC, BMP, 1750-7, 34016-9, 2777-1, 2731-8, 12203-8 #### [facility] ([id number]) [address], [address] [place] [address] SPECIFIC GRAVITY MARYJO >=1.030 Normal 1.003-1.035 [facility] Comment on above: Performed By: #### C BC, BMP, 1750-7, 60707-3, 7-1, 273-8, 12413-4 #### [facility] ([id number]) [address], [facility] [address] [place] [address] UROBILINOGEN MARYJO 0.2 eu/dL Normal <1.1 [facility] Comment on above: Performed By: #### C BC, BMP, 1750-7, 03237-6, 7-1, 273-8, 26072-2 #### [facility] ([id number]) [address], [facility] [address] [place] [address] VENOUS BLOOD GASon 4 TATO'S TEST Normal [facility] Comment on above: Performed By: #### C BC, BMP, 1750-7, 71347-3, 2777-1, 2731-8, 75761-7 #### [facility] ([id number]) [address] [address] [place] [address] Base excess Calc (Bld) [Moles/Vol] 3.0 mmol/L High 0.0-2.0 [facility] Comment on above: Performed By: #### C BC, BMP, 1750-7, 27551-1, 2777-1, 2731-8, 93177-5 #### [facility] ([id number]) [address], [address] [place] [address] Body temperature 98.6 [degF] Normal 37.0 [facility] Comment on above: Performed By: #### C BC, BMP, 1750-7, 90641-8, 2777-1, 2731-8, 75732-1 #### [facility] ([id number]) [address], [address] [place] [address] HCO3 (Bld) [Moles/Vol] 30.2 mmol/L High 20.0-24.0 [facility] Comment on above: Performed By: #### C BC, BMP, 1750-7, 07998-9, 2777-1, 2731-8, 40434-8 #### [facility] ([id number]) [address], [address] [place] [address] Oxygen saturation in Blood 43.0 % Low >80.0 [facility] Comment on above: Performed By: #### C BC, BMP, 1750-7, 59148-8, 2777-1, 2731-8, 03434-8 #### [facility] ([id number]) [address], [address] [place] [address] OXYGEN SOURCE NC Normal [facility] Comment on above: Performed By: #### C BC, BMP, 1750-7, 39365-0, 2777-1, 2731-8, 68663-6 #### [facility] ([id number]) [address], [address] [place] [address] PCO2, VENOUS 58.4 MMHG High 35-50 [facility] Comment on above: Performed By: #### C BC, BMP, 1750-7, 30189-3, 2777-1, 2731-8, 10462-0 #### [facility] ([id number]) [address], [address] [place] [address] PH, VENOUS 7.322 Normal 7.320-7.420 [facility] Comment on above: Performed By: #### C BC, BMP, 1751-7, 59130-9, 2777-1, 2731-8, 18756-9 #### [facility] ([id number]) [address], [address] [place] [address] PO2, VENOUS 27 MMHG Low 30-50 [facility] Comment on above: Performed By: #### C BC, BMP, 1751-7, 17675-7, 2777-1, 2731-8, 62259-3 #### [facility] ([id number]) [address], [address] [place] [address] SAMPLE SITE N/A Normal [facility] Comment on above: Performed By: #### C BC, BMP, 1751-7, 10640-2, 2777-1, 2731-8, 00405-8 #### [facility] ([id number]) [address], [address] [place] [address] SAMPLE TYPE VENOUS Normal [facility] Comment on above: Performed By: #### C BC, BMP, 1751-7, 67794-0, 2777-1, 2731-8, 03244-4 #### [facility] ([id number]) [address], [address] [place] [address] XR CHEST 1 VWon 08-12-2024 XR CHEST [...] Tapia MD on 08/12/2024 3:18 AM Normal [facility] Glucose Glucometer (BldC) [M ass/Vol]on 06-26-2024 Glucose [Mass/Vol] 206 mg/dL High 65-99 [facility] URN MACROSCOPIC NURon 2023 BILIRUBIN MARYJO Negative Normal NEG [facility] Comment on above: Performed By: #### C BC, BMP, 175-7, 74345-7, 2777-1, 2731-8, 85459-7 #### [facility] ([id number]) [address], [address] [place] [address] BLOOD/HGB MARYJO Negative Normal NEG [facility] Comment on above: Performed By: #### Renita BC, BMP, 175-7, 06851-7, 2777-1, 2731-8, 70721-6 #### [facility] ([id number]) [address], [address] [place] [address] GLUCOSE MARYJO 250 mg/dL Abnormal NEG [facility] Comment on above: Performed By: #### Renita BC, BMP, 1750-7, 75248-0, 2777-1, 2731-8, 02537-4 #### [facility] ([id number]) [address], [address] [place] [address] KETONES MARYJO Negative Normal NEG [facility] Comment on above: Performed By: #### C BC, BMP, 175-7, 14885-6, 2777-1, 2731-8, 11784-5 #### [facility] ([id number]) [address], [address] [place] [address] LEUKOCYTE ESTERASE MARYJO Negative Normal NEG [facility] Comment on above: Performed By: #### C BC, BMP, 175-7, 24320-7, 2777-1, 2731-8, 74079-8 #### [facility] ([id number]) [address], [address] [place] [address] NITRITE MARYJO Negative Normal NEG [facility] Comment on above: Performed By: #### C BC, BMP, 1751-7, 14131-4, 2777-1, 2731-8, 32443-3 #### [facility] ([id number]) [address], [address] [place] [address] PH MARYJO 5.5 Normal 5.0-8.5 [facility] Comment on above: Performed By: #### C BC, BMP, 175-7, 38692-5, 2777-1, 2731-8, 06899-5 #### [facility] ([id number]) [address], [address] [place] [address] PROTEIN MARYJO 30 mg/dL Abnormal NEG [facility] Comment on above: Performed By: #### C BC, BMP, 175-7, 39689-9, 2777-1, 2731-8, 00283-2 #### [facility] ([id number]) [address], [address] [place] [address] SPECIFIC GRAVITY MARYJO >=1.030 Normal 1.003-1.035 [facility] Comment on above: Performed By: #### C BC, BMP, 175-7, 68723-8, 2777-1, 2731-8, 16657-5 #### [facility] ([id number]) [address], [address] [place] [address] UROBILINOGEN MARYJO 0.2 eu/dL Normal <1.1 [facility] Comment on above: Performed By: #### C BC, BMP, 1751-7, 45668-6, 2777-1, 2731-8, 16651-9 #### [facility] ([id number]) [address], [address] [place] [address] BASIC METABOLIC PANLon 06-25 Anion gap [Moles/Vol] 10 mmol/L Normal 5-15 [facility] Comment on above: Performed By: #### C BC, BMP, 175-7, 72708-9, 2777-1, 2731-8, 91849-8 #### [facility] ([id number]) [address], [address] [place] [address] Calcium [Mass/Vol] 8.7 mg/dL Normal 8.5-10.5 [facility] Comment on above: Performed By: #### Renita BC, BMP, 1750-7, 52440-9, 2777-1, 2731-8, 58225-5 #### [facility] ([id number]) [address], [address] [place] [address] Chloride [Moles/Vol] 97 mmol/L Low 98-109 [facility] Comment on above: Performed By: #### Renita BC, BMP, 1750-7, 31199-1, 2777-1, 2731-8, 75096-1 #### [facility] ([id number]) [address], [address] [place] [address] CO2 [Moles/Vol] 27 mmol/L Normal 22-32 [facility] Comment on above: Performed By: #### Renita BC, BMP, 1750-7, 14423-3, 2777-1, 2731-8, 78477-7 #### [facility] ([id number]) [address], [address] [place] [address] Creatinine [Mass/Vol] 1.42 mg/dL High 0.40-1.00 [facility] Comment on above: Result Comment: METH OD TRACEABLE TO IDMS STANDARD Performed By: #### Renita BC, BMP, 1750-7, 09844-5, 2777-1, 2731-8, 18392-3 #### [facility] ([id number]) [address], [address] [place] [address] GFR/1.73 sq M.predicted among non-blacks MDRD (S/P/Bld) [Vol rate/Area] 38 mL/min/{1.73_m2} Low >59 [facility] Comment on above: Result Comment: Reported eGFR is based on the CKD-EPI 2020 equation that does not use a race coefficient. Performed By: #### C BC, BMP, 1750-7, 37002-9, 7-1, 273-8, 05472-7 #### [facility] ([id number]) [address], [address] [place] [address] Glucose [Mass/Vol] 92 mg/dL Normal 65-99 [facility] Comment on above: Performed By: #### Renita BC, BMP, 1750-, 47856-3, 2776-1, 2730-8, 01481-4 #### [facility] ([id number]) [address], [address] [place] [address] Potassium [Moles/Vol] 4.6 mmol/L Normal 3.5-5.0 [facility] Comment on above: Performed By: #### Renita BC, BMP, 1750-7, 57763-6, 7-1, 273-8, 33295-9 #### [facility] ([id number]) [address], [address] [place] [address] Sodium [Moles/Vol] 134 mmol/L Normal 134-146 [facility] Comment on above: Performed By: #### Renita BC, BMP, 1750-7, 55924-1, 7-1, 273-8, 04863-1 #### [facility] ([id number]) [address], [address] [place] [address] Urea nitrogen [Mass/Vol] 24 mg/dL Normal 5-27 [facility] Comment on above: Performed By: #### C BC, BMP, 1750-7, 54630-5, 7-1, 273-8, 61801-5 #### [facility] ([id number]) [address], [address] [place] [address] CBC AND AUTO DIFFon 06-25-20 24 ABSOLUTE BASOPHIL 0.1 X10E9/L Normal 0.0-0.2 [facility] Comment on above: Performed By: #### C BC, BMP, 1750-, 66626-6, 2776-, 273-8, 54475-3 #### [facility] ([id number]) [address], [address] [place] [address] ABSOLUTE NEUTROPHIL 9.0 X10E9/L High 1.5-6.6 [facility] Comment on above: Performed By: #### C BC, BMP, 1751-05, 99940-7, 2776-, 2730-8, 18864-3 #### [facility] ([id number]) [address], [address] [place] [address] Basophils/100 WBC (Bld) 0.6 % Normal [facility] Comment on above: Performed By: #### C BC, BMP, 1750-, 97063-2, 2776-, 2730-8, 98999-9 #### [facility] ([id number]) [address], [address] [place] [address] Eosinophils (Bld) [#/Vol] 0.0 10*3/uL Normal 0.0-0.4 [facility] Comment on above: Performed By: #### C BC, BMP, 1750-, 71448-9, 2776-1, 273-8, 90742-5 #### [facility] ([id number]) [address], [address] [place] [address] Eosinophils/100 WBC (Bld) 0.2 % Normal [facility] Comment on above: Performed By: #### C BC, BMP, 1750-, 18515-3, 7-1, 2731-8, 29505-4 #### [facility] ([id number]) [address], [address] [place] [address] Erythrocyte distribution width (RBC) [Ratio] 15.7 % High 11.5-15.0 [facility] Comment on above: Performed By: #### C BC, BMP, 1751-05, 06461-1, 2776-1, 273-8, 47646-4 #### [facility] ([id number]) [address] [address] [place] [address] Hematocrit (Bld) [Volume fraction] 31.0 % Low 35-47 [facility] Comment on above: Performed By: #### C BC, BMP, 1751-05, 07066-9, 2776-, 2730-8, 08620-4 #### [facility] ([id number]) [address], [address] [place] [address] Hemoglobin (Bld) [Mass/Vol] 10.1 g/dL Low 11.7-15.5 [facility] Comment on above: Performed By: #### C BC, BMP, 1751-05, 73677-7, 2776-1, 273-8, 63476-9 #### [facility] ([id number]) [address], [address] [place] [address] Lymphocytes (Bld) [#/Vol] 1.2 10*3/uL Normal 1.0-3.5 [facility] Comment on above: Performed By: #### C BC, BMP, 1750-, 23638-0, 2776-1, 2731-8, 24432-7 #### [facility] ([id number]) [address], [address] [place] [address] Lymphocytes/100 WBC (Bld) 10.4 % Normal [facility] Comment on above: Performed By: #### C BC, BMP, 1750-, 17211-0, 2776-, 273-8, 25846-5 #### [facility] ([id number]) [address], [address] [place] [address] MCH (RBC) [Entitic mass] 28.1 pg Normal 27-34 [facility] Comment on above: Performed By: #### C BC, BMP, 1750-, 03424-8, 2776-, 2730-8, 02178-3 #### [facility] ([id number]) [address], [address] [place] [address] MCHC (RBC) [Mass/Vol] 32.6 g/dL Normal 32-36 [facility] Comment on above: Performed By: #### Renita BC, BMP, 1751-05, 05413-2, 2776-, 2730-8, 13117-8 #### [facility] ([id number]) [address], [address] [place] [address] MCV (RBC) [Entitic vol] 86 fL Normal 80-100 [facility] Comment on above: Performed By: #### Renita BC, BMP, 1750-, 84783-1, 2776-, 2730-8, 36896-8 #### [facility] ([id number]) [address], [address] [place] [address] Monocytes (Bld) [#/Vol] 1.1 10*3/uL High 0-0.9 [facility] Comment on above: Performed By: #### Renita BC, BMP, 1750-, 92252-4, 2776-, 273-8, 95900-3 #### [facility] ([id number]) [address], [address] [place] [address] Monocytes/100 WBC (Bld) 9.6 % Normal [facility] Comment on above: Performed By: #### C BC, BMP, 1750-7, 45185-8, 2777-1, 2731-8, 49141-9 #### [facility] ([id number]) [address], [address] [place] [address] Neutrophils/100 WBC (Bld) 79.2 % Normal [facility] Comment on above: Performed By: #### C BC, BMP, 1750-7, 39232-0, 7-1, 2731-8, 06941-0 #### [facility] ([id number]) [address], [address] [place] [address] Platelet mean volume (Bld) [Entitic vol] 8.1 fL Normal 7-12 [facility] Comment on above: Performed By: #### Renita BC, BMP, 1750-, 08213-2, 2776-1, 2730-8, 24835-6 #### [facility] ([id number]) [address], [address] [place] [address] Platelets (Bld) [#/Vol] 216 10*3/uL Normal 150-450 [facility] Comment on above: Performed By: #### Renita BC, BMP, 1750-, 78283-2, 7-1, 2731-8, 91006-9 #### [facility] ([id number]) [address], [address] [place] [address] RBC COUNT 3.59 X10E12/L Low 3.80-5.20 [facility] Comment on above: Performed By: #### C BC, BMP, 1750-, 73446-1, 2776-, 273-8, 51454-2 #### [facility] ([id number]) [address], [address] [place] [address] WBC (Bld) [#/Vol] 11.4 10*3/uL High 4.0-11.0 [facility] Comment on above: Performed By: #### C , [facility], 1751-7, 10073-4, 2777-1, 2731-8, 87029-5 #### [facility] ([id number]) [address] [facility], [address] [place] [address] Glucose Glucometer (BldC) [M ass/Vol]on 06-25-2024 Glucose [Mass/Vol] 159 mg/dL High 65-99 [facility] Glucose [Mass/Vol] 80 mg/dL Normal 65-99 [facility] SARS/FLU A+B/RSV by NAAT/Mol ecularon 06-25-2024 SARS/FLU [...] operators who are performing tests using either [employer] or [employer] systems and is limited to laboratories that [...] repeat. Fact Sheet for Healthcare Providers: https://www.fda.gov/med ia/330844/download Fact Sheet for Patients: https://www.fda.gov/med ia/662763/download Normal [facility] Comment on above: Performed By: #### C BC, BMP, 175-7, 02661-9, 2777-1, 2731-8, 47967-5 #### [facility] ([id number]) [address] [place] [address] Troponin I.cardiac High sens itivity method [Mass/Vol]on 06-25-2024 1 HOUR TROP I, HIGH SENSITIVITY 10 ng/L Normal <16 [facility] Comment on above: Performed By: #### Renita ALLEN, BMP, 1750-7, 45587-1, 2777-1, 2731-8, 14353-0 #### [facility] ([id number]) [address] [facility] [place] [address] TROPONIN I, HIGH SENSITIVITY 9 ng/L Normal <16 [facility] Comment on above: Performed By: #### Renita BC, BMP, 175-7, 17338-8, 2777-1, 2731-8, 71519-2 #### [facility] ([id number]) [address] [place] [address] BASIC METABOLIC PANLon 06-15 Anion gap [Moles/Vol] 5 mmol/L Normal 5-15 [facility] Comment on above: Performed By: #### Renita BC, BMP, 175-7, 40452-2, 2777-1, 2731-8, 34231-9 #### [facility] ([id number]) [address] [place] [address] Calcium [Mass/Vol] 8.5 mg/dL Normal 8.5-10.5 [facility] Comment on above: Performed By: #### Renita BC, BMP, 1751-7, 54910-7, 2777-1, 2731-8, 80056-1 #### [facility] ([id number]) [address], [address] [place] [address] Chloride [Moles/Vol] 105 mmol/L Normal 98-109 [facility] Comment on above: Performed By: #### Renita ALLEN, BMP, 1750-7, 15008-9, 2777-1, 2731-8, 62027-7 #### [facility] ([id number]) [address], [address] [place] [address] CO2 [Moles/Vol] 23 mmol/L Normal 22-32 [facility] Comment on above: Performed By: #### Renita ALLEN, BMP, 1750-7, 66614-2, 2777-1, 2731-8, 99789-5 #### [facility] ([id number]) [address], [address] [place] [address] Creatinine [Mass/Vol] 1.62 mg/dL High 0.40-1.00 [facility] Comment on above: Result Comment: METH OD TRACEABLE TO IDMS STANDARD Performed By: #### Renita ALLEN, BMP, 1750-7, 42302-7, 2777-1, 2731-8, 74709-9 #### [facility] ([id number]) [address], [address] [place] [address] GFR/1.73 sq M.predicted among non-blacks MDRD (S/P/Bld) [Vol rate/Area] 32 mL/min/{1.73_m2} Low >59 [facility] Comment on above: Result Comment: Reported eGFR is based on the CKD-EPI 2020 equation that does not use a race coefficient. Performed By: #### C BC, BMP, 1750-7, 81944-4, 2777-1, 2731-8, 39688-2 #### [facility] ([id number]) [address], [address] [place] [address] Glucose [Mass/Vol] 319 mg/dL High 65-99 [facility] Comment on above: Performed By: #### C BC, BMP, 1750-7, 89694-1, 7-1, 2731-8, 00093-8 #### [facility] ([id number]) [address], [address] [place] [address] Potassium [Moles/Vol] 5.0 mmol/L Normal 3.5-5.0 [facility] Comment on above: Performed By: #### C BC, BMP, 1750-7, 35285-8, 7-1, 2730-8, 55465-6 #### [facility] ([id number]) [address], [address] [place] [address] Sodium [Moles/Vol] 133 mmol/L Low 134-146 [facility] Comment on above: Performed By: #### C BC, BMP, 1750-7, 32994-7, 7-1, 2731-8, 73563-1 #### [facility] ([id number]) [address], [address] [place] [address] Urea nitrogen [Mass/Vol] 48 mg/dL High 5-27 [facility] Comment on above: Performed By: #### C BC, BMP, 1750-7, 77128-1, 2777-1, 2731-8, 85619-9 #### [facility] ([id number]) [address], [address] [place] [address] CBC AND AUTO DIFFon 06-15-20 24 ABSOLUTE BASOPHIL 0.1 X10E9/L Normal 0.0-0.2 [facility] Comment on above: Performed By: #### C BC, BMP, 1750-, 37903-5, 2776-, 273-8, 18708-2 #### [facility] ([id number]) [address], [address] [place] [address] ABSOLUTE NEUTROPHIL 13.5 X10E9/L High 1.5-6.6 [facility] Comment on above: Performed By: #### C BC, BMP, 1751-05, 40249-7, 2776-, 2730-8, 89202-9 #### [facility] ([id number]) [address], [address] [place] [address] Basophils/100 WBC (Bld) 0.4 % Normal [facility] Comment on above: Performed By: #### Renita BC, BMP, 1751-05, , 2776-, 2730-8, 56042-8 #### [facility] ([id number]) [address], [address] [place] [address] Eosinophils (Bld) [#/Vol] 0.0 10*3/uL Normal 0.0-0.4 [facility] Comment on above: Performed By: #### Renita BC, BMP, 1751-05, 06612-8, 2776-, 2730-8, 60656-6 #### [facility] ([id number]) [address], [address] [place] [address] Eosinophils/100 WBC (Bld) 0.1 % Normal [facility] Comment on above: Performed By: #### C BC, BMP, 1751-05, 51959-9, 2776-, 2730-8, 30143-8 #### [facility] ([id number]) [address], [address] [place] [address] Erythrocyte distribution width (RBC) [Ratio] 15.1 % High 11.5-15.0 [facility] Comment on above: Performed By: #### C BC, BMP, 1750-, 00450-0, 2776-, 273-8, 75779-0 #### [facility] ([id number]) [address], [address] [place] [address] Hematocrit (Bld) [Volume fraction] 28.4 % Low 35-47 [facility] Comment on above: Performed By: #### C BC, BMP, 1751-05, 87662-1, 2776-, 2730-8, 71891-5 #### [facility] ([id number]) [address], [address] [place] [address] Hemoglobin (Bld) [Mass/Vol] 9.4 g/dL Low 11.7-15.5 [facility] Comment on above: Performed By: #### C BC, BMP, 1751-05, , 2776-, 2730-8, 60178-2 #### [facility] ([id number]) [address], [address] [place] [address] Lymphocytes (Bld) [#/Vol] 1.1 10*3/uL Normal 1.0-3.5 [facility] Comment on above: Performed By: #### C BC, BMP, 1751-05, 12634-1, 2776-, 2730-8, 86971-2 #### [facility] ([id number]) [address], [address] [place] [address] Lymphocytes/100 WBC (Bld) 6.9 % Normal [facility] Comment on above: Performed By: #### C BC, BMP, 1751-05, 32606-1, 2776-, 2730-8, 01610-5 #### [facility] ([id number]) [address], [address] [place] [address] MCH (RBC) [Entitic mass] 28.2 pg Normal 27-34 [facility] Comment on above: Performed By: #### C BC, BMP, 1750-7, 64369-4, 2777-1, 2731-8, 93634-8 #### [facility] ([id number]) [address], [address] [place] [address] MCHC (RBC) [Mass/Vol] 33.1 g/dL Normal 32-36 [facility] Comment on above: Performed By: #### C BC, BMP, 1750-7, 47069-6, 2777-1, 2731-8, 80300-0 #### [facility] ([id number]) [address], [address] [place] [address] MCV (RBC) [Entitic vol] 85 fL Normal 80-100 [facility] Comment on above: Performed By: #### C BC, BMP, 1750-, 69930-6, 2776-1, 273-8, 06753-6 #### [facility] ([id number]) [address], [address] [place] [address] Monocytes (Bld) [#/Vol] 0.8 10*3/uL Normal 0-0.9 [facility] Comment on above: Performed By: #### C BC, BMP, 1750-, 73526-9, 7-1, 2731-8, 40603-3 #### [facility] ([id number]) [address], [address] [place] [address] Monocytes/100 WBC (Bld) 5.3 % Normal [facility] Comment on above: Performed By: #### C BC, BMP, 1750-, 00105-9, 7-1, 273-8, 14869-0 #### [facility] ([id number]) [address], [address] [place] [address] Neutrophils/100 WBC (Bld) 87.3 % Normal [facility] Comment on above: Performed By: #### C BC, BMP, 1750-7, 62667-9, 2777-1, 2731-8, 97600-8 #### [facility] ([id number]) [address], [address] [place] [address] Platelet mean volume (Bld) [Entitic vol] 9.1 fL Normal 7-12 [facility] Comment on above: Performed By: #### C BC, BMP, 1750-7, 95109-9, 7-1, 2731-8, 39463-6 #### [facility] ([id number]) [address], [address] [place] [address] Platelets (Bld) [#/Vol] 98 10*3/uL Low 150-450 [facility] Comment on above: Performed By: #### Renita ALLEN, BMP, 1750-, 49796-1, 7-1, 2731-8, 58708-0 #### [facility] ([id number]) [address], [address] [place] [address] RBC COUNT 3.34 X10E12/L Low 3.80-5.20 [facility] Comment on above: Performed By: #### Renita BC, BMP, 1750-, 17948-1, 7-1, 2731-8, 24265-7 #### [facility] ([id number]) [address], [address] [place] [address] WBC (Bld) [#/Vol] 15.5 10*3/uL High 4.0-11.0 [facility] Comment on above: Performed By: #### Renita BC, BMP, 1750-, 85211-3, 7-1, 2731-8, 44993-1 #### [facility] ([id number]) [address], [address] [place] [address] COMPREHENSIVE METABOLIC PANE Dickson 2024 Albumin [Mass/Vol] 3.4 g/dL Normal 3.2-5.3 [facility] Comment on above: Performed By: #### C BC, BMP, 1751-7, 36721-3, 2777-1, 2731-8, 39877-2 #### [facility] ([id number]) [address], [address] [place] [address] ALP [Catalytic activity/Vol] 68 U/L Normal 39-130 [facility] Comment on above: Performed By: #### C BC, BMP, 175-7, 66968-8, 2777-1, 2731-8, 78207-4 #### [facility] ([id number]) [address], [address] [place] [address] ALT [Catalytic activity/Vol] 15 U/L Normal 0-31 [facility] Comment on above: Performed By: #### Renita BC, BMP, 1750-7, 05023-5, 2777-1, 2731-8, 23745-2 #### [facility] ([id number]) [address], [address] [place] [address] Anion gap [Moles/Vol] 10 mmol/L Normal 5-15 [facility] Comment on above: Performed By: #### C BC, BMP, 175-7, 16681-6, 2777-1, 2731-8, 02961-9 #### [facility] ([id number]) [address], [address] [place] [address] AST [Catalytic activity/Vol] 26 U/L Normal 0-41 [facility] Comment on above: Performed By: #### C BC, BMP, 175-7, 05527-2, 2777-1, 2731-8, 94427-5 #### [facility] ([id number]) [address], [address] [place] [address] Bilirubin [Mass/Vol] 1.1 mg/dL Normal 0.3-1.2 [facility] Comment on above: Result Comment: RESU LTS QUESTIONABLE DUE TO HEMOLYSIS Performed By: #### C BC, BMP, 1750-7, 07945-7, 2777-1, 2731-8, 76208-1 #### [facility] ([id number]) [address], [address] [place] [address] Calcium [Mass/Vol] 8.5 mg/dL Normal 8.5-10.5 [facility] Comment on above: Performed By: #### C BC, BMP, 1750-7, 23054-6, 2777-1, 2731-8, 69446-2 #### [facility] ([id number]) [address], [address] [place] [address] Chloride [Moles/Vol] 106 mmol/L Normal 98-109 [facility] Comment on above: Performed By: #### C BC, BMP, 1750-, 31663-7, 7-1, 2731-8, 69763-6 #### [facility] ([id number]) [address], [address] [place] [address] CO2 [Moles/Vol] 18 mmol/L Low 22-32 [facility] Comment on above: Performed By: #### Renita BC, BMP, 1750-7, 62231-0, 2777-1, 2731-8, 13235-0 #### [facility] ([id number]) [address], [address] [place] [address] Creatinine [Mass/Vol] 1.67 mg/dL High 0.40-1.00 [facility] Comment on above: Result Comment: METH OD TRACEABLE TO IDMS STANDARD Performed By: #### C BC, BMP, 1750-7, 29224-3, 2777-1, 2731-8, 65730-9 #### [facility] ([id number]) [address], [address] [place] [address] GFR/1.73 sq M.predicted among non-blacks MDRD (S/P/Bld) [Vol rate/Area] 31 mL/min/{1.73_m2} Low >59 [facility] Comment on above: Result Comment: Reported eGFR is based on the CKD-EPI 2020 equation that does not use a race coefficient. Performed By: #### C BC, BMP, 1750-7, 79516-4, 2777-1, 2731-8, 99816-4 #### [facility] ([id number]) [address], [address] [place] [address] Glucose [Mass/Vol] 182 mg/dL High 65-99 [facility] Comment on above: Performed By: #### C BC, BMP, 1750-7, 18598-4, 7-1, 273-8, 52485-5 #### [facility] ([id number]) [address], [address] [place] [address] Potassium [Moles/Vol] 5.6 mmol/L High 3.5-5.0 [facility] Comment on above: Result Comment: SPEC IMEN HEMOLYZED, RESULTS INCREASED Performed By: #### C BC, BMP, 1751-05, 80819-4, 7-1, 273-8, 56134-3 #### [facility] ([id number]) [address], [address] [place] [address] Protein [Mass/Vol] 7.3 g/dL Normal 6.0-8.0 [facility] Comment on above: Performed By: #### C BC, BMP, 1750-7, 41436-5, 2777-1, 2731-8, 02459-3 #### [facility] ([id number]) [address], [address] [place] [address] Sodium [Moles/Vol] 134 mmol/L Normal 134-146 [facility] Comment on above: Performed By: #### C BC, BMP, 1750-7, 83361-7, 2777-1, 2731-8, 73201-2 #### [facility] ([id number]) [address], [address] [place] [address] Urea nitrogen [Mass/Vol] 45 mg/dL High 5-27 [facility] Comment on above: Performed By: #### C TIFFANY, BMP, 1750-, 13796-3, 2776-, 2730-8, 99464-9 #### [facility] ([id number]) [address], [address] [place] [address] MAGNESIUMon 2024 Magnesium [Mass/Vol] 2.4 mg/dL Normal 1.8-2.6 [facility] Comment on above: Performed By: #### C TIFFANY, BMP, 1751-05, , 2776-11, 2730-8, 03928-6 #### [facility] ([id number]) [address], [address] [place] [address] CBC AND AUTO DIFFon 06-14-20 24 ABSOLUTE BASOPHIL 0.0 X10E9/L Normal 0.0-0.2 [facility] Comment on above: Performed By: #### C TIFFANY, BMP, 1751-05, , 2776-11, 8, 75940-5 #### [facility] ([id number]) [address], [address] [place] [address] ABSOLUTE NEUTROPHIL 8.2 X10E9/L High 1.5-6.6 [facility] Comment on above: Performed By: #### C BC, BMP, 1751-05, 38890-8, 2776-11, 2730-8, 39627-3 #### [facility] ([id number]) [address], [address] [place] [address] Basophils/100 WBC (Bld) 0.1 % Normal [facility] Comment on above: Performed By: #### Renita BC, BMP, 1751-05, 12748-5, 2776-1, 273-8, 50111-4 #### [facility] ([id number]) [address] [address] [place] [address] Eosinophils (Bld) [#/Vol] 0.0 10*3/uL Normal 0.0-0.4 [facility] Comment on above: Performed By: #### C BC, BMP, 1751-05, , 2776-, 273-8, 54152-7 #### [facility] ([id number]) [address] [address] [place] [address] Eosinophils/100 WBC (Bld) 0.0 % Normal [facility] Comment on above: Performed By: #### C BC, BMP, 1751-05, , 2776-, 2730-8, 88966-4 #### [facility] ([id number]) [address] [address] Erythrocyte distribution width (RBC) [Ratio] 14.9 % Normal 11.5-15.0 [facility] Comment on above: Performed By: #### C TIFFANY, BMP, 1751-05, , 2776-11, 2730-8, 35439-1 #### [facility] ([id number]) [address] [address] Hematocrit (Bld) [Volume fraction] 28.0 % Low 35-47 [facility] Comment on above: Performed By: #### Renita BC, BMP, 1751-05, , 2776-, 273-8, 55168-8 #### [facility] ([id number]) [address] [address] [place] [address] Hemoglobin (Bld) [Mass/Vol] 9.2 g/dL Low 11.7-15.5 [facility] Comment on above: Performed By: #### Renita BC, BMP, 1751-05, 67396-6, 2776-1, 273-8, 48988-0 #### [facility] ([id number]) [address], [facility] [address] [place] [address] Lymphocytes (Bld) [#/Vol] 1.1 10*3/uL Normal 1.0-3.5 [facility] Comment on above: Performed By: #### C BC, BMP, 1751-05, , 2776-, 273-8, 87920-3 #### [facility] ([id number]) [address], [facility] [address] [place] [address] Lymphocytes/100 WBC (Bld) 10.9 % Normal [facility] Comment on above: Performed By: #### C BC, BMP, 1751-05, 83214-3, 2776-, 2730-8, 45133-3 #### [facility] ([id number]) [address], [address] [place] [address] MCH (RBC) [Entitic mass] 28.1 pg Normal 27-34 [facility] Comment on above: Performed By: #### C BC, BMP, 1751-05, 25431-2, 2776-, 273-8, 37479-6 #### [facility] ([id number]) [address], [facility] [address] [place] [address] MCHC (RBC) [Mass/Vol] 32.7 g/dL Normal 32-36 [facility] Comment on above: Performed By: #### C BC, BMP, 1751-05, 50252-6, 2776-, 273-8, 85994-8 #### [facility] ([id number]) [address] [address] [place] [address] MCV (RBC) [Entitic vol] 86 fL Normal 80-100 [facility] Comment on above: Performed By: #### C BC, BMP, 1751-7, 56921-4, 2777-1, 2731-8, 49635-3 #### [facility] ([id number]) [address], [address] [place] [address] Monocytes (Bld) [#/Vol] 0.4 10*3/uL Normal 0-0.9 [facility] Comment on above: Performed By: #### C BC, BMP, 175-7, 54097-4, 2777-1, 2731-8, 80779-1 #### [facility] ([id number]) [address], [facility] [address] [place] [address] Monocytes/100 WBC (Bld) 4.0 % Normal [facility] Comment on above: Performed By: #### C BC, BMP, 1750-7, 76625-4, 2777-1, 2731-8, 62480-6 #### [facility] ([id number]) [address], [facility] [address] [place] [address] Neutrophils/100 WBC (Bld) 85.0 % Normal [facility] Comment on above: Performed By: #### C BC, BMP, 1750-7, 74799-2, 2777-1, 2731-8, 57586-1 #### [facility] ([id number]) [address], [facility] [address] [place] [address] Platelet mean volume (Bld) [Entitic vol] 8.5 fL Normal 7-12 [facility] Comment on above: Performed By: #### C BC, BMP, 175-7, 24109-1, 2777-1, 2731-8, 10867-8 #### [facility] ([id number]) [address], [facility] [address] [place] [address] Platelets (Bld) [#/Vol] 194 10*3/uL Normal 150-450 [facility] Comment on above: Performed By: #### C BC, BMP, 175-7, 63095-9, 2777-1, 2731-8, 78780-7 #### [facility] ([id number]) [address], [address] [place] [address] RBC COUNT 3.26 X10E12/L Low 3.80-5.20 [facility] Comment on above: Performed By: #### C BC, BMP, 1750-7, 89678-3, 2777-1, 2731-8, 59027-0 #### [facility] ([id number]) [address], [address] [place] [address] WBC (Bld) [#/Vol] 9.7 10*3/uL Normal 4.0-11.0 [facility] Comment on above: Performed By: #### C BC, BMP, 1750-, 57453-4, 7-1, 2731-8, 86377-4 #### [facility] ([id number]) [address], [address] [place] [address] COMPREHENSIVE METABOLIC PANE Dickson 06-14-2024 Albumin [Mass/Vol] 3.6 g/dL Normal 3.2-5.3 [facility] Comment on above: Performed By: #### C BC, BMP, 1750-, 55001-3, 7-1, 2731-8, 03041-7 #### [facility] ([id number]) [address], [address] [place] [address] ALP [Catalytic activity/Vol] 65 U/L Normal 39-130 [facility] Comment on above: Performed By: #### C BC, BMP, 1750-7, 56339-2, 2777-1, 2731-8, 91683-1 #### [facility] ([id number]) [address], [address] [place] [address] ALT [Catalytic activity/Vol] 14 U/L Normal 0-31 [facility] Comment on above: Performed By: #### C BC, BMP, 1750-7, 93952-5, 2777-1, 2731-8, 27692-4 #### [facility] ([id number]) [address], [address] [place] [address] Anion gap [Moles/Vol] 7 mmol/L Normal 5-15 [facility] Comment on above: Performed By: #### C BC, BMP, 1750-7, 52057-4, 2777-1, 2731-8, 57383-4 #### [facility] ([id number]) [address], [address] [place] [address] AST [Catalytic activity/Vol] 19 U/L Normal 0-41 [facility] Comment on above: Performed By: #### Renita BC, BMP, 1750-7, 14382-4, 2777-1, 2731-8, 68117-9 #### [facility] ([id number]) [address], [address] [place] [address] Bilirubin [Mass/Vol] 0.7 mg/dL Normal 0.3-1.2 [facility] Comment on above: Performed By: #### C BC, BMP, 1750-7, 06221-8, 2777-1, 2731-8, 85850-8 #### [facility] ([id number]) [address], [address] [place] [address] Calcium [Mass/Vol] 8.6 mg/dL Normal 8.5-10.5 [facility] Comment on above: Performed By: #### C BC, BMP, 1750-7, 16173-9, 2777-1, 2731-8, 37071-3 #### [facility] ([id number]) [address], [address] [place] [address] Chloride [Moles/Vol] 100 mmol/L Normal 98-109 [facility] Comment on above: Performed By: #### Renita BC, BMP, 1750-7, 85671-2, 2777-1, 2731-8, 69887-3 #### [facility] ([id number]) [address], [address] [place] [address] CO2 [Moles/Vol] 24 mmol/L Normal 22-32 [facility] Comment on above: Performed By: #### C BC, BMP, 1750-7, 14629-6, 2777-1, 2731-8, 46120-6 #### [facility] ([id number]) [address], [address] [place] [address] Creatinine [Mass/Vol] 1.52 mg/dL High 0.40-1.00 [facility] Comment on above: Result Comment: METH OD TRACEABLE TO IDMS STANDARD Performed By: #### C BC, BMP, 1750-, 01598-2, 7-1, 2731-8, 34309-1 #### [facility] ([id number]) [address], [address] [place] [address] GFR/1.73 sq M.predicted among non-blacks MDRD (S/P/Bld) [Vol rate/Area] 35 mL/min/{1.73_m2} Low >59 [facility] Comment on above: Result Comment: Reported eGFR is based on the CKD-EPI 2020 equation that does not use a race coefficient. Performed By: #### C BC, BMP, 1750-, 03888-6, 2776-1, 2731-8, 71257-8 #### [facility] ([id number]) [address], [address] [place] [address] Glucose [Mass/Vol] 236 mg/dL High 65-99 [facility] Comment on above: Performed By: #### C BC, BMP, 1750-7, 06452-7, 2777-1, 2731-8, 42852-9 #### [facility] ([id number]) [address], [address] [place] [address] Potassium [Moles/Vol] 4.7 mmol/L Normal 3.5-5.0 [facility] Comment on above: Performed By: #### Renita ALLEN, BMP, 1750-7, 97850-7, 7-1, 2731-8, 66765-5 #### [facility] ([id number]) [address], [address] [place] [address] Protein [Mass/Vol] 7.2 g/dL Normal 6.0-8.0 [facility] Comment on above: Performed By: #### Renita ALLEN, BMP, 1750-, 55601-0, 2776-1, 273-8, 84656-6 #### [facility] ([id number]) [address], [address] [place] [address] Sodium [Moles/Vol] 131 mmol/L Low 134-146 [facility] Comment on above: Performed By: #### Renita ALLEN, BMP, 1751-05, 69121-9, 7-1, 2731-8, 71994-4 #### [facility] ([id number]) [address], [facility] [address] [place] [address] Urea nitrogen [Mass/Vol] 32 mg/dL High 5-27 [facility] Comment on above: Performed By: #### Renita ALLEN, BMP, 1751-05, 45876-9, 2776-1, 273-8, 60238-3 #### [facility] ([id number]) [address], [address] [place] [address] Glucose Glucometer (BldC) [M ass/Vol]on 06-14-2024 Glucose [Mass/Vol] 291 mg/dL High 65-99 [facility] Glucose [Mass/Vol] 288 mg/dL High 65-99 [facility] Glucose [Mass/Vol] 330 mg/dL High 65-99 [facility] Glucose [Mass/Vol] 271 mg/dL High 65-99 [facility] MAGNESIUMon 06-14-2024 Magnesium [Mass/Vol] 2.4 mg/dL Normal 1.8-2.6 [facility] Comment on above: Performed By: #### C WILSON ALLEN, 1750-, 10092-3, 2777-1, 2731-8, 66421-2 #### [facility] ([id number]) [address], [address] [place] [address] Magnesium [Mass/Vol] 1.7 mg/dL Low 1.8-2.6 [facility] Comment on above: Performed By: #### C TIFFANY, WILSON, 1751-05, 70015-6, 2776-1, 273-8, 64008-4 #### [facility] ([id number]) [address], [address] [place] [address] Procalcitonin IA [Mass/Vol]o n 06-14-2024 PROCALCITONIN 0.15 ng/mL High <0.05 [facility] Comment on above: Result Comment: NOTE <0.50 ng/mL - Low risk of severe sepsis and/or septic shock. <2.00 ng/mL - Recommend retesting within 6-24 hours. >2.00 ng/mL - High risk of sepsis and/or septic shock. Performed By: #### C WILSON ALLEN, 1751-05, 58749-8, 7-1, 2731-8, 66137-2 #### [facility] ([id number]) [address] [place] [address] BLOOD CULTUREon 06-13-2024 Bacteria identified Aer cx Nom (Bld) SPECIMEN NOTES LEFT HAND CULTURE RESULTS NO GROWTH 5 DAYS Normal [facility] Comment on above: Performed By: #### C TIFFANY, WILSON, 1750-, 23169-3, 2777-1, 2731-8, 30697-8 #### [facility] ([id number]) [address], [address] [place] [address] Bacteria identified Aer cx Nom (Bld) SPECIMEN NOTES LEFT ANTECUBITAL CULTURE RESULTS NO GROWTH 5 DAYS Normal [facility] Comment on above: Performed By: #### C BC, BMP, 1750-7, 19449-0, 7-1, 2731-8, 61373-7 #### [facility] ([id number]) [address], [address] [place] [address] CBC AND AUTO DIFFon 06-13-20 24 ABSOLUTE BASOPHIL 0.0 X10E9/L Normal 0.0-0.2 [facility] Comment on above: Performed By: #### C BC, BMP, 1750-, 45352-7, 2776-1, 273-8, 77547-0 #### [facility] ([id number]) [address], [address] [place] [address] ABSOLUTE NEUTROPHIL 7.6 X10E9/L High 1.5-6.6 [facility] Comment on above: Performed By: #### C BC, BMP, 1750-, 20214-9, 7-1, 2731-8, 48615-6 #### [facility] ([id number]) [address], [address] [place] [address] Basophils/100 WBC (Bld) 0.4 % Normal [facility] Comment on above: Performed By: #### Renita BC, BMP, 1750-, 33949-6, 2776-1, 273-8, 74471-7 #### [facility] ([id number]) [address], [address] [place] [address] Eosinophils (Bld) [#/Vol] 0.0 10*3/uL Normal 0.0-0.4 [facility] Comment on above: Performed By: #### C BC, BMP, 1750-7, 51469-7, 2777-1, 2731-8, 30175-7 #### [facility] ([id number]) [address], [address] [place] [address] Eosinophils/100 WBC (Bld) 0.4 % Normal [facility] Comment on above: Performed By: #### C BC, BMP, 1750-7, 16874-5, 2777-1, 2731-8, 45744-1 #### [facility] ([id number]) [address], [address] [place] [address] Erythrocyte distribution width (RBC) [Ratio] 15.3 % High 11.5-15.0 [facility] Comment on above: Performed By: #### C BC, BMP, 1750-7, 91183-3, 7-1, 273-8, 96258-4 #### [facility] ([id number]) [address], [address] [place] [address] Hematocrit (Bld) [Volume fraction] 33.3 % Low 35-47 [facility] Comment on above: Performed By: #### C BC, BMP, 1751-05, 38152-6, 7-1, 273-8, 40298-5 #### [facility] ([id number]) [address], [address] [place] [address] Hemoglobin (Bld) [Mass/Vol] 10.8 g/dL Low 11.7-15.5 [facility] Comment on above: Performed By: #### C BC, BMP, 1751-05, 11427-9, 2776-1, 273-8, 13833-3 #### [facility] ([id number]) [address], [address] [place] [address] Lymphocytes (Bld) [#/Vol] 1.3 10*3/uL Normal 1.0-3.5 [facility] Comment on above: Performed By: #### Renita BC, BMP, 1750-7, 21544-8, 2777-1, 2731-8, 93487-5 #### [facility] ([id number]) [address], [address] [place] [address] Lymphocytes/100 WBC (Bld) 14.0 % Normal [facility] Comment on above: Performed By: #### C BC, BMP, 1750-7, 92704-6, 2777-1, 2731-8, 07912-8 #### [facility] ([id number]) [address], [address] [place] [address] MCH (RBC) [Entitic mass] 27.9 pg Normal 27-34 [facility] Comment on above: Performed By: #### C BC, BMP, 1750-, 80463-2, 7-1, 273-8, 84659-0 #### [facility] ([id number]) [address] [facility] [address] [place] [address] MCHC (RBC) [Mass/Vol] 32.3 g/dL Normal 32-36 [facility] Comment on above: Performed By: #### C BC, BMP, 1750-, 67673-4, 7-1, 273-8, 26954-0 #### [facility] ([id number]) [address], [facility] [address] [place] [address] MCV (RBC) [Entitic vol] 87 fL Normal 80-100 [facility] Comment on above: Performed By: #### Renita BC, BMP, 1750-, 09816-9, 2776-1, 273-8, 19619-0 #### [facility] ([id number]) [address], [address] [place] [address] Monocytes (Bld) [#/Vol] 0.6 10*3/uL Normal 0-0.9 [facility] Comment on above: Performed By: #### Renita BC, BMP, 1750-, 38785-7, 2777-1, 2731-8, 02690-3 #### [facility] ([id number]) [address], [address] [place] [address] Monocytes/100 WBC (Bld) 6.0 % Normal [facility] Comment on above: Performed By: #### C BC, BMP, 1750-7, 42950-4, 2777-1, 2731-8, 24780-3 #### [facility] ([id number]) [address], [address] [place] [address] Neutrophils/100 WBC (Bld) 79.2 % Normal [facility] Comment on above: Performed By: #### Renita BC, BMP, 1750-7, 79311-8, 2777-1, 2731-8, 39085-9 #### [facility] ([id number]) [address], [address] [place] [address] Platelet mean volume (Bld) [Entitic vol] 8.1 fL Normal 7-12 [facility] Comment on above: Performed By: #### Renita BC, BMP, 1751-05, 04485-2, 2777-1, 2731-8, 88503-0 #### [facility] ([id number]) [address], [address] [place] [address] Platelets (Bld) [#/Vol] 267 10*3/uL Normal 150-450 [facility] Comment on above: Performed By: #### Renita BC, BMP, 1750-, 43631-1, 2777-1, 2731-8, 39606-2 #### [facility] ([id number]) [address], [address] [place] [address] RBC COUNT 3.85 X10E12/L Normal 3.80-5.20 [facility] Comment on above: Performed By: #### Renita BC, BMP, 1750-7, 63671-6, 2777-1, 2731-8, 74172-5 #### [facility] ([id number]) [address], [address] [place] [address] WBC (Bld) [#/Vol] 9.6 10*3/uL Normal 4.0-11.0 [facility] Comment on above: Performed By: #### C BC, BMP, 175-7, 53645-2, 2777-1, 2731-8, 64495-7 #### [facility] ([id number]) [address], [address] [place] [address] COMPREHENSIVE METABOLIC PANE Dickson 06-13-2024 Albumin [Mass/Vol] 4.2 g/dL Normal 3.2-5.3 [facility] Comment on above: Performed By: #### Renita BC, BMP, 1750-7, 16830-5, 2777-1, 2731-8, 62896-7 #### [facility] ([id number]) [address], [address] [place] [address] ALP [Catalytic activity/Vol] 82 U/L Normal 39-130 [facility] Comment on above: Performed By: #### Renita BC, BMP, 1750-7, 95348-2, 2777-1, 2731-8, 62629-4 #### [facility] ([id number]) [address], [address] [place] [address] ALT [Catalytic activity/Vol] 14 U/L Normal 0-31 [facility] Comment on above: Performed By: #### Renita BC, BMP, 175-7, 95497-0, 2777-1, 2731-8, 11214-5 #### [facility] ([id number]) [address], [address] [place] [address] Anion gap [Moles/Vol] 11 mmol/L Normal 5-15 [facility] Comment on above: Performed By: #### Renita BC, BMP, 175-7, 03904-3, 2777-1, 2731-8, 24292-2 #### [facility] ([id number]) [address], [address] [place] [address] AST [Catalytic activity/Vol] 19 U/L Normal 0-41 [facility] Comment on above: Performed By: #### C BC, BMP, 1750-7, 01078-7, 2777-1, 2731-8, 15081-6 #### [facility] ([id number]) [address], [address] [place] [address] Bilirubin [Mass/Vol] 0.4 mg/dL Normal 0.3-1.2 [facility] Comment on above: Performed By: #### C BC, BMP, 1750-7, 55496-1, 2777-1, 2731-8, 23613-0 #### [facility] ([id number]) [address], [address] [place] [address] Calcium [Mass/Vol] 9.4 mg/dL Normal 8.5-10.5 [facility] Comment on above: Performed By: #### Renita BC, BMP, 1750-7, 99728-5, 2777-1, 2731-8, 30907-3 #### [facility] ([id number]) [address], [address] [place] [address] Chloride [Moles/Vol] 100 mmol/L Normal 98-109 [facility] Comment on above: Performed By: #### Renita BC, BMP, 1750-7, 41791-7, 2777-1, 2731-8, 96045-2 #### [facility] ([id number]) [address], [address] [place] [address] CO2 [Moles/Vol] 25 mmol/L Normal 22-32 [facility] Comment on above: Performed By: #### Renita BC, BMP, 1750-7, 01066-3, 2777-1, 2731-8, 52576-2 #### [facility] ([id number]) [address], [address] [place] [address] Creatinine [Mass/Vol] 1.38 mg/dL High 0.40-1.00 [facility] Comment on above: Result Comment: METH OD TRACEABLE TO IDMS STANDARD Performed By: #### C TIFFANY BMP, 7, 98109-8, 2777-1, 2731-8, 55646-9 #### [facility] ([id number]) [address], [address] [place] [address] GFR/1.73 sq M.predicted among non-blacks MDRD (S/P/Bld) [Vol rate/Area] 39 mL/min/{1.73_m2} Low >59 [facility] Comment on above: Result Comment: Reported eGFR is based on the CKD-EPI 2020 equation that does not use a race coefficient. Performed By: #### C WILSON ALLEN, 1751-05, 44106-1, 7-1, 2731-8, 70914-0 #### [facility] ([id number]) [address], [address] [place] [address] Glucose [Mass/Vol] 159 mg/dL High 65-99 [facility] Comment on above: Performed By: #### C WILSON ALLEN, 1751-05, 88628-5, 2776-1, 2731-8, 38201-9 #### [facility] ([id number]) [address], [address] [place] [address] Potassium [Moles/Vol] 4.6 mmol/L Normal 3.5-5.0 [facility] Comment on above: Performed By: #### C TIFFANY, BMP, 7, 23261-1, 7-1, 2731-8, 49828-7 #### [facility] ([id number]) [address], [address] [place] [address] Protein [Mass/Vol] 8.7 g/dL High 6.0-8.0 [facility] Comment on above: Performed By: #### C BC, BMP, 1751-7, 98152-8, 2777-1, 2731-8, 31638-8 #### [facility] ([id number]) [address], [address] [place] [address] Sodium [Moles/Vol] 136 mmol/L Normal 134-146 [facility] Comment on above: Performed By: #### C BC, BMP, 1751-7, 72124-6, 2777-1, 2731-8, 99477-5 #### [facility] ([id number]) [address], [address] [place] [address] Urea nitrogen [Mass/Vol] 21 mg/dL Normal 5-27 [facility] Comment on above: Performed By: #### C BC, BMP, 1751-7, 17241-9, 2777-1, 2731-8, 75576-9 #### [facility] ([id number]) [address], [address] [place] [address] CT CTA CHESTon 06-13-2024 CT CTA CHEST [...] Tapia MD on 06/13/2024 8:31 AM Normal [facility] Fibrin D-dimer DDU (PPP) [Ma ss/Vol]on 06-13-2024 D DIMER 1666 ng/mL DDU High <255 [facility] Comment on above: Result Comment: Results [...] Performed By: #### C , BMP, 1751-7, 18737-9, 2777-1, 2731-8, 28175-3 #### [facility] ([id number]) [address] [facility], [address] [place] [address] Glucose Glucometer (BldC) [M ass/Vol]on 06-13-2024 Glucose [Mass/Vol] 334 mg/dL High 65-99 [facility] Glucose [Mass/Vol] 316 mg/dL High 65-99 [facility] Glucose [Mass/Vol] 309 mg/dL High 65-99 [facility] Glucose [Mass/Vol] 221 mg/dL High 65-99 [facility] Glucose [Mass/Vol] 124 mg/dL High 65-99 [facility] Lactate (P obed) [Moles/Vol]o n 06-13-2024 Lactate [Moles/Vol] 1.5 mmol/L Normal 0.4-2.0 [facility] Comment on above: Performed By: #### C TIFFANY, BMP, 1751-7, 60278-4, 2777-1, 2731-8, 96402-3 #### [facility] ([id number]) [address], [address] [place] [address] LACTATE W/REFLEX 4.5 mmol/L Critically high 0.4-2.0 [facility] Comment on above: Performed By: #### C TIFFANY, BMP, 1750-7, 43089-7, 2777-1, 2731-8, 62100-3 #### [facility] ([id number]) [address], [address] [place] [address] Natriuretic peptide B [Mass/ Vol]on 06-13-2024 Natriuretic peptide B (Bld) [Mass/Vol] 134 pg/mL High <100.0 [facility] Comment on above: Performed By: #### C TIFFANY, BMP, 1750-7, 20427-4, 2777-1, 2731-8, 80884-9 #### [facility] ([id number]) [address], [address] [place] [address] SARS/FLU A+B/RSV by NAAT/Mol ecularon 06-13-2024 SARS/FLU [...] operators who are performing tests using either [employer] DX or Envoimoinscher systems and is limited to laboratories that [...] repeat. Fact Sheet for Healthcare Providers: https://www.fda.gov/med ia/681233/download Fact Sheet for Patients: https://www.fda.gov/med ia/921601/download Normal [facility] Comment on above: Performed By: #### C , [facility], 1751-7, 66905-6, 2777-1, 2731-8, 22278-0 #### [facility] ([id number]) [address] [facility], [address] [place] [address] Troponin I.cardiac High sens itivity method [Mass/Vol]on 06-13-2024 1 HOUR TROP I, HIGH SENSITIVITY 23 ng/L High <16 [facility] Comment on above: Result Comment: Elevations of hs-Troponin may be due to causes other than myocardial ischemia. Recommend serial hs-Troponin testing be performed. For the initial evaluation and management of chest pain patients, refer to the algorithms linked below. Emergency Patient: https://www.[employer]com/dv/dl.aspx?[email or web address]&[email or web address]&[email or web address]&uh= acaea Inpatient: https://www.[employer]/dv/dl.aspx?y=[email or web address]&dh=f72e7&z=83244&uh= acaea Performed By: #### C BC, BMP, 1750-7, 38210-8, 2777-1, 2731-8, 09268-4 #### [facility] ([id number]) [address], [address] [place] [address] TROPONIN I, HIGH SENSITIVITY 18 ng/L High <16 [facility] Comment on above: Result Comment: Elevations of hs-Troponin may be due to causes other than myocardial ischemia. Recommend serial hs-Troponin testing be performed. For the initial evaluation and management of chest pain patients, refer to the algorithms linked below. Emergency Patient: https://www.[employer]/dv/dl.aspx?[email or web address]&t=18601&uh= acaea Inpatient: https://www.[employer]/dv/dl.aspx?d=2522907&dh=f72e7&t=10158&uh= acaea Performed By: #### C BC, BMP, 1750-7, 14099-0, 7-1, 2731-8, 12069-9 #### [facility] ([id number]) [address], [address] [place] [address] URINALYSISon 06-13-2024 Bilirubin Ql (U) Negative Normal NEG [facility] Comment on above: Performed By: #### C BC, BMP, 1750-7, 21268-5, 2777-1, 2731-8, 61180-5 #### [facility] ([id number]) [address], [address] [place] [address] BLOOD/HGB SMALL Abnormal NEG [facility] Comment on above: Performed By: #### C BC, BMP, 1750-7, 72950-1, 2777-1, 2731-8, 93521-3 #### [facility] ([id number]) [address], [address] [place] [address] Color (U) YELLOW Normal YELLOW [facility] Comment on above: Performed By: #### C BC, BMP, 1750-7, 09289-3, 2777-1, 2731-8, 06066-8 #### [facility] ([id number]) [address], [address] [place] [address] Glucose Ql (U) 500 mg/dL Abnormal NEG [facility] Comment on above: Performed By: #### Renita BC, BMP, 1750-7, 94811-8, 2777-1, 2731-8, 85399-8 #### [facility] ([id number]) [address], [address] [place] [address] Ketones Ql (U) 15 mg/dL Abnormal NEG [facility] Comment on above: Performed By: #### Renita ALLEN, BMP, 1750-7, 63356-0, 2777-1, 2731-8, 84168-7 #### [facility] ([id number]) [address], [address] [place] [address] Leukocyte esterase Test strip Ql (U) Negative Normal NEG [facility] Comment on above: Performed By: #### Renita BC, BMP, 175-7, 29990-4, 2777-1, 2731-8, 95377-2 #### [facility] ([id number]) [address], [address] [place] [address] Nitrite Ql (U) Negative Normal NEG [facility] Comment on above: Performed By: #### Renita BC, BMP, 175-7, 78286-3, 2777-1, 2731-8, 30051-9 #### [facility] ([id number]) [address], [address] [place] [address] pH (U) 7.0 [pH] Normal 5.0-8.5 [facility] Comment on above: Performed By: #### C TIFFANY, BMP, 175-7, 70216-6, 2777-1, 2731-8, 30389-6 #### [facility] ([id number]) [address], [facility] [address] [place] [address] Protein Ql (U) Negative Normal NEG [facility] Comment on above: Performed By: #### Renita ALLEN, BMP, 1750-7, 15207-0, 2777-1, 2731-8, 30187-2 #### [facility] ([id number]) [address], [facility] [address] [place] [address] R.B.CELLS 1 /hpf Normal 0-5 [facility] Comment on above: Performed By: #### Renita ALLEN, BMP, 1750-7, 34333-2, 2777-1, 2731-8, 27284-1 #### [facility] ([id number]) [address], [facility] [address] [place] [address] Specific gravity (U) [Rel density] 1.015 Normal 1.003-1.035 [facility] Comment on above: Performed By: #### Renita ALLEN, BMP, 1750-7, 02071-1, 7-1, 2731-8, 25002-0 #### [facility] ([id number]) [address] [address] [place] [address] SQUAMOUS EPITHELIUM 0 to 1 Normal 0-5 [facility] Comment on above: Performed By: #### Renita ALLEN, BMP, 1750-7, 82104-0, 2777-1, 2731-8, 23506-5 #### [facility] ([id number]) [address] [address] [place] [address] TURBIDITY CLEAR Normal CLEAR [facility] Comment on above: Performed By: #### C BC, BMP, 1751-7, 28066-7, 2777-1, 2731-8, 13967-6 #### [facility] ([id number]) [address], [address] [place] [address] Urobilinogen Qn (U) 0.2 {Artie'U}/dL Normal <1.1 [facility] Comment on above: Performed By: #### C BC, BMP, 1751-7, 61316-6, 2777-1, 2731-8, 19650-2 #### [facility] ([id number]) [address], [address] [place] [address] W.B.CELLS 0 /hpf Normal 0-5 [facility] Comment on above: Performed By: #### C BC, BMP, 1751-7, 87816-0, 2777-1, 2731-8, 85763-7 #### [facility] ([id number]) [address], [address] [place] [address] URINE CULTUREon 06-13-2024 Bacteria identified Cx Nom (U) CULTURE RESULTS <10,000 ORGANISMS/ML NORMAL URO GENITAL BAILEY Normal [facility] Comment on above: Performed By: #### C BC, BMP, 1751-7, 18250-3, 2777-1, 2731-8, 68662-0 #### [facility] ([id number]) [address], [address] [place] [address] XR CHEST 1 VWon 06-13-2024 XR CHEST [...] Khalil MD on 06/13/2024 7:25 AM Normal [facility] CANCER ANTIGEN 27.29on 06-02 CANCER ANTGN 27.29 11.5 U/mL Normal <=39.0 [facility] Comment on above: Result Comment: NOTE INTERPRETIVE [...] alone for a diagnosis of malignancy. Methodology: [employer] IM BR 27.29 (BR) chemiluminescent immunoassay was used. Results obtained with different assay methods or kits cannot be used interchangeably. Performed By: [facility] [address] [place] [address] Records Assistant: Brendon Ruiz MD, PhD CLIA Number: [id number] Performed By: #### C WILSON ALLEN, 1750-7, 59010-2, 2777-1, 2731-8, 91786-9 #### [facility] ([id number]) [address] [facility], [address] [place] [address] CBC AND AUTO DIFFon 06-02-20 24 ABSOLUTE BASOPHIL 0.0 X10E9/L Normal 0.0-0.2 [facility] Comment on above: Performed By: #### C WILSON ALLEN, 1750-, 33086-7, 2777-1, 2731-8, 34683-4 #### [facility] ([id number]) [address] [facility], [address] [place] [address] ABSOLUTE NEUTROPHIL 3.2 X10E9/L Normal 1.5-6.6 [facility] Comment on above: Performed By: #### C BC, BMP, 1750-7, 28901-7, 2777-1, 2731-8, 77654-2 #### [facility] ([id number]) [address], [address] [place] [address] Basophils/100 WBC (Bld) 0.7 % Normal [facility] Comment on above: Performed By: #### C BC, BMP, 1750-, 95226-3, 7-1, 2731-8, 55140-7 #### [facility] ([id number]) [address], [address] [place] [address] Eosinophils (Bld) [#/Vol] 0.2 10*3/uL Normal 0.0-0.4 [facility] Comment on above: Performed By: #### C BC, BMP, 1751-05, 88024-4, 2776-1, 273-8, 59219-7 #### [facility] ([id number]) [address], [address] [place] [address] Eosinophils/100 WBC (Bld) 4.2 % Normal [facility] Comment on above: Performed By: #### Renita BC, BMP, 1750-, 54708-7, 2776-1, 273-8, 42033-9 #### [facility] ([id number]) [address], [address] [place] [address] Erythrocyte distribution width (RBC) [Ratio] 15.2 % High 11.5-15.0 [facility] Comment on above: Performed By: #### C BC, BMP, 1750-, 10572-6, 2776-1, 273-8, 24413-8 #### [facility] ([id number]) [address], [address] [place] [address] Hematocrit (Bld) [Volume fraction] 30.9 % Low 35-47 [facility] Comment on above: Performed By: #### C BC, BMP, 1750-7, 66143-0, 2777-1, 2731-8, 82318-3 #### [facility] ([id number]) [address], [address] [place] [address] Hemoglobin (Bld) [Mass/Vol] 10.3 g/dL Low 11.7-15.5 [facility] Comment on above: Performed By: #### C BC, BMP, 1750-7, 99646-7, 2777-1, 2731-8, 99759-7 #### [facility] ([id number]) [address], [address] [place] [address] Lymphocytes (Bld) [#/Vol] 1.4 10*3/uL Normal 1.0-3.5 [facility] Comment on above: Performed By: #### C BC, BMP, 1750-7, 26811-0, 7-1, 2731-8, 72389-3 #### [facility] ([id number]) [address], [address] [place] [address] Lymphocytes/100 WBC (Bld) 26.6 % Normal [facility] Comment on above: Performed By: #### C BC, BMP, 1750-7, 31360-5, 7-1, 2731-8, 39104-2 #### [facility] ([id number]) [address], [address] [place] [address] MCH (RBC) [Entitic mass] 28.7 pg Normal 27-34 [facility] Comment on above: Performed By: #### C BC, BMP, 1750-7, 13255-9, 2777-1, 2731-8, 52888-0 #### [facility] ([id number]) [address], [address] [place] [address] MCHC (RBC) [Mass/Vol] 33.2 g/dL Normal 32-36 [facility] Comment on above: Performed By: #### C BC, BMP, 1750-7, 46226-7, 2777-1, 2731-8, 19129-0 #### [facility] ([id number]) [address], [address] [place] [address] MCV (RBC) [Entitic vol] 86 fL Normal 80-100 [facility] Comment on above: Performed By: #### C BC, BMP, 1750-, 11943-6, 7-1, 273-8, 14698-1 #### [facility] ([id number]) [address], [address] [place] [address] Monocytes (Bld) [#/Vol] 0.4 10*3/uL Normal 0-0.9 [facility] Comment on above: Performed By: #### Renita BC, BMP, 1750-, 63768-7, 2776-1, 273-8, 78945-8 #### [facility] ([id number]) [address], [address] [place] [address] Monocytes/100 WBC (Bld) 7.4 % Normal [facility] Comment on above: Performed By: #### Renita BC, BMP, 1750-, 73533-8, 7-1, 2731-8, 06827-8 #### [facility] ([id number]) [address], [address] [place] [address] Neutrophils/100 WBC (Bld) 61.1 % Normal [facility] Comment on above: Performed By: #### Renita BC, BMP, 1750-, 78143-1, 2776-, 273-8, 20224-3 #### [facility] ([id number]) [address], [address] [place] [address] Platelet mean volume (Bld) [Entitic vol] 8.5 fL Normal 7-12 [facility] Comment on above: Performed By: #### C BC, BMP, 1750-7, 43648-3, 2777-1, 2731-8, 55802-6 #### [facility] ([id number]) [address], [address] [place] [address] Platelets (Bld) [#/Vol] 247 10*3/uL Normal 150-450 [facility] Comment on above: Performed By: #### C BC, BMP, 1750-7, 24375-0, 2777-1, 2731-8, 62280-1 #### [facility] ([id number]) [address] [facility], [address] [place] [address] RBC COUNT 3.58 X10E12/L Low 3.80-5.20 [facility] Comment on above: Performed By: #### C BC, BMP, 1750-7, 06128-8, 2777-1, 2731-8, 34912-6 #### [facility] ([id number]) [address] [facility], [address] [place] [address] WBC (Bld) [#/Vol] 5.3 10*3/uL Normal 4.0-11.0 [facility] Comment on above: Performed By: #### C BC, BMP, 1750-7, 62625-0, 2777-1, 2731-8, 38175-9 #### [facility] ([id number]) [address] [place] [address] COMPREHENSIVE METABOLIC PANE Dickson 06-02-2024 Albumin [Mass/Vol] 3.7 g/dL Normal 3.2-5.3 [facility] Comment on above: Performed By: #### C BC, BMP, 1750-7, 48311-9, 2777-1, 2731-8, 13283-4 #### [facility] ([id number]) [address], [address] [place] [address] ALP [Catalytic activity/Vol] 72 U/L Normal 39-130 [facility] Comment on above: Performed By: #### C BC, BMP, 1751-7, 97001-9, 2777-1, 2731-8, 20953-3 #### [facility] ([id number]) [address], [address] [place] [address] ALT [Catalytic activity/Vol] 10 U/L Normal 0-31 [facility] Comment on above: Performed By: #### C BC, BMP, 175-7, 80062-6, 2777-1, 2731-8, 38293-1 #### [facility] ([id number]) [address], [address] [place] [address] Anion gap [Moles/Vol] 9 mmol/L Normal 5-15 [facility] Comment on above: Performed By: #### Renita BC, BMP, 1750-7, 44896-3, 2777-1, 2731-8, 55156-2 #### [facility] ([id number]) [address], [address] [place] [address] AST [Catalytic activity/Vol] 16 U/L Normal 0-41 [facility] Comment on above: Performed By: #### Renita BC, BMP, 1750-7, 61699-1, 2777-1, 2731-8, 02973-8 #### [facility] ([id number]) [address], [address] [place] [address] Bilirubin [Mass/Vol] 0.3 mg/dL Normal 0.3-1.2 [facility] Comment on above: Performed By: #### C BC, BMP, 175-7, 08159-1, 2777-1, 2731-8, 00675-9 #### [facility] ([id number]) [address], [address] [place] [address] Calcium [Mass/Vol] 9.1 mg/dL Normal 8.5-10.5 [facility] Comment on above: Performed By: #### C BC, BMP, 1750-7, 26473-7, 2777-1, 2731-8, 02157-3 #### [facility] ([id number]) [address], [address] [place] [address] Chloride [Moles/Vol] 101 mmol/L Normal 98-109 [facility] Comment on above: Performed By: #### C BC, BMP, 1750-7, 50606-8, 2777-1, 2731-8, 93434-5 #### [facility] ([id number]) [address], [address] [place] [address] CO2 [Moles/Vol] 29 mmol/L Normal 22-32 [facility] Comment on above: Performed By: #### C BC, BMP, 1750-7, 81756-6, 2777-1, 2731-8, 08784-3 #### [facility] ([id number]) [address], [address] [place] [address] Creatinine [Mass/Vol] 1.38 mg/dL High 0.40-1.00 [facility] Comment on above: Result Comment: METH OD TRACEABLE TO IDMS STANDARD Performed By: #### C BC, BMP, 1750-7, 22008-9, 7-1, 2731-8, 16373-4 #### [facility] ([id number]) [address], [address] [place] [address] GFR/1.73 sq M.predicted among non-blacks MDRD (S/P/Bld) [Vol rate/Area] 39 mL/min/{1.73_m2} Low >59 [facility] Comment on above: Result Comment: Reported eGFR is based on the CKD-EPI 2020 equation that does not use a race coefficient. Performed By: #### C BC, BMP, 1750-7, 05935-2, 2777-1, 2731-8, 65901-2 #### [facility] ([id number]) [address], [address] [place] [address] Glucose [Mass/Vol] 236 mg/dL High 65-99 [facility] Comment on above: Performed By: #### C BC, BMP, 1751-7, 07048-0, 2777-1, 2731-8, 32084-2 #### [facility] ([id number]) [address], [address] [place] [address] Potassium [Moles/Vol] 5.0 mmol/L Normal 3.5-5.0 [facility] Comment on above: Performed By: #### C BC, BMP, 175-7, 04045-8, 2777-1, 2731-8, 29297-2 #### [facility] ([id number]) [address], [address] [place] [address] Protein [Mass/Vol] 7.5 g/dL Normal 6.0-8.0 [facility] Comment on above: Performed By: #### Renita BC, BMP, 1750-7, 88873-2, 2777-1, 2731-8, 03605-1 #### [facility] ([id number]) [address], [address] [place] [address] Sodium [Moles/Vol] 139 mmol/L Normal 134-146 [facility] Comment on above: Performed By: #### Renita BC, BMP, 175-7, 05459-7, 2777-1, 2731-8, 52410-7 #### [facility] ([id number]) [address], [address] [place] [address] Urea nitrogen [Mass/Vol] 19 mg/dL Normal 5-27 [facility] Comment on above: Performed By: #### Renita BC, BMP, 175-7, 74521-8, 2777-1, 2731-8, 29936-2 #### [facility] ([id number]) [address], [address] [place] [address] Cancer Ag 15-3 Qnon 06-02-20 24 CA 15 3 7.7 U/mL Normal 0.0-31.3 [facility] Comment on above: Result Comment: The method used for this test is Matheus [place] DXI chemiluminescent immunoassay. Values obtained by different assay methods cannot be used interchangeably. Performed By: #### C BC, BMP, 1750-7, 50132-8, 2777-1, 2731-8, 36809-7 #### [facility] ([id number]) [address], [address] [place] [address] BASIC METABOLIC PANLon 04-13 Anion gap [Moles/Vol] 6 mmol/L Normal 5-15 [facility] Comment on above: Performed By: #### Renita ALLEN BMP, 1750-7, 09025-1, 2777-1, 2731-8, 08941-3 #### [facility] ([id number]) [address], [address] [place] [address] Calcium [Mass/Vol] 8.8 mg/dL Normal 8.5-10.5 [facility] Comment on above: Performed By: #### Renita ALLEN, BMP, 1750-7, 91788-1, 2777-1, 2731-8, 49910-1 #### [facility] ([id number]) [address], [address] [place] [address] Chloride [Moles/Vol] 105 mmol/L Normal 98-109 [facility] Comment on above: Performed By: #### Renita BC, BMP, 1750-7, 05405-5, 2777-1, 2731-8, 65416-7 #### [facility] ([id number]) [address], [address] [place] [address] CO2 [Moles/Vol] 26 mmol/L Normal 22-32 [facility] Comment on above: Performed By: #### Renita BC, BMP, 175-7, 79101-9, 2777-1, 2731-8, 22751-4 #### [facility] ([id number]) [address], [address] [place] [address] Creatinine [Mass/Vol] 1.53 mg/dL High 0.40-1.00 [facility] Comment on above: Result Comment: METH OD TRACEABLE TO IDMS STANDARD Performed By: #### C BC, BMP, 175-7, 70284-5, 2777-1, 2731-8, 45384-9 #### [facility] ([id number]) [address], [address] [place] [address] GFR/1.73 sq M.predicted among non-blacks MDRD (S/P/Bld) [Vol rate/Area] 35 mL/min/{1.73_m2} Low >59 [facility] Comment on above: Result Comment: Reported eGFR is based on the CKD-EPI 2020 equation that does not use a race coefficient. Performed By: #### C BC, BMP, 1750-7, 32741-3, 2777-1, 2731-8, 84055-0 #### [facility] ([id number]) [address], [address] [place] [address] Glucose [Mass/Vol] 107 mg/dL High 65-99 [facility] Comment on above: Performed By: #### C BC, BMP, 175-7, 16446-6, 2777-1, 2731-8, 33395-9 #### [facility] ([id number]) [address], [address] [place] [address] Potassium [Moles/Vol] 4.1 mmol/L Normal 3.5-5.0 [facility] Comment on above: Performed By: #### C BC, BMP, 175-7, 82474-7, 2777-1, 2731-8, 11367-2 #### [facility] ([id number]) [address], [address] [place] [address] Sodium [Moles/Vol] 137 mmol/L Normal 134-146 [facility] Comment on above: Performed By: #### C BC, BMP, 1751-7, 43640-0, 2777-1, 2731-8, 32854-7 #### [facility] ([id number]) [address], [address] [place] [address] Urea nitrogen [Mass/Vol] 27 mg/dL Normal 5-27 [facility] Comment on above: Performed By: #### C BC, BMP, 1750-7, 01888-6, 2777-1, 2731-8, 78747-2 #### [facility] ([id number]) [address], [address] [place] [address] CBC AND AUTO DIFFon 05-30-20 24 ABSOLUTE BASOPHIL 0.0 X10E9/L Normal 0.0-0.2 [facility] Comment on above: Performed By: #### C BCA, BMP #### [facility] ([id number]) [address] [place] [address] #### HA1C #### [facility] ([id number]) [address], [address] [place] [address] ABSOLUTE NEUTROPHIL 6.3 X10E9/L Normal 1.5-6.6 [facility] Comment on above: Performed By: #### Renita BCA, BMP #### [facility] ([id number]) [address] [place] [address] #### HA1C #### [facility] ([id number]) [address], [address] [place] [address] Basophils/100 WBC (Bld) 0.5 % Normal [facility] Comment on above: Performed By: #### Renita BCA, BMP #### [facility] ([id number]) [address] [place] [address] #### HA1C #### [facility] ([id number]) [address], [address] [place] [address] Eosinophils (Bld) [#/Vol] 0.7 10*3/uL High 0.0-0.4 [facility] Comment on above: Performed By: #### C BCA, BMP #### [facility] ([id number]) [address] [place] [address] #### HA1C #### [facility] ([id number]) [address], [address] [place] [address] Eosinophils/100 WBC (Bld) 6.6 % Normal [facility] Comment on above: Performed By: #### C BCA, BMP #### [facility] ([id number]) [address] [place] [address] #### HA1C #### [facility] ([id number]) [address], [address] [place] [address] Erythrocyte distribution width (RBC) [Ratio] 14.9 % Normal 11.5-15.0 [facility] Comment on above: Performed By: #### C BCA, BMP #### [facility] ([id number]) [address] [place] [address] #### HA1C #### [facility] ([id number]) [address], [address] [place] [address] Hematocrit (Bld) [Volume fraction] 26.3 % Low 35-47 [facility] Comment on above: Performed By: #### C BCA, BMP #### [facility] ([id number]) [address] [place] [address] #### HA1C #### [facility] ([id number]) [address], [address] [place] [address] Hemoglobin (Bld) [Mass/Vol] 8.9 g/dL Low 11.7-15.5 [facility] Comment on above: Performed By: #### C BCA, BMP #### [facility] ([id number]) [address] [place] [address] #### HA1C #### [facility] ([id number]) [address], [address] [place] [address] Lymphocytes (Bld) [#/Vol] 1.6 10*3/uL Normal 1.0-3.5 [facility] Comment on above: Performed By: #### C BCA, BMP #### [facility] ([id number]) [address] [place] [address] #### HA1C #### [facility] ([id number]) [address], [address] [place] [address] Lymphocytes/100 WBC (Bld) 16.8 % Normal [facility] Comment on above: Performed By: #### C BCA, BMP #### [facility] ([id number]) [address] [place] [address]209 #### HA1C #### [facility] ([id number]) [address], [address] [place] [address] MCH (RBC) [Entitic mass] 29.2 pg Normal 27-34 [facility] Comment on above: Performed By: #### C BCA, BMP #### [facility] ([id number]) [address] [place] [address] #### HA1C #### [facility] ([id number]) [address], [address] [place] [address] MCHC (RBC) [Mass/Vol] 33.7 g/dL Normal 32-36 [facility] Comment on above: Performed By: #### C BCA, BMP #### [facility] ([id number]) [address] [place] [address] 1945[address] #### HA1C #### [facility] ([id number]) [address], [address] [place] [address] MCV (RBC) [Entitic vol] 87 fL Normal 80-100 [facility] Comment on above: Performed By: #### C BCA, BMP #### [facility] ([id number]) [address] [place] [address] #### HA1C #### [facility] ([id number]) [address], [address] [place] [address] Monocytes (Bld) [#/Vol] 1.1 10*3/uL High 0-0.9 [facility] Comment on above: Performed By: #### C BCA, BMP #### [facility] ([id number]) [address] [place] [address] #### HA1C #### [facility] ([id number]) [address] [place] [address] Monocytes/100 WBC (Bld) 11.5 % Normal [facility] Comment on above: Performed By: #### C BCA, BMP #### [facility] ([id number]) [address] [place] [address] #### HA1C #### [facility] ([id number]) [address], [address] [place] [address] Neutrophils/100 WBC (Bld) 64.6 % Normal [facility] Comment on above: Performed By: #### C BCA, BMP #### [facility] ([id number]) [address] [place] [address] #### HA1C #### [facility] ([id number]) [address], [address] [place] [address] Platelet mean volume (Bld) [Entitic vol] 8.1 fL Normal 7-12 [facility] Comment on above: Performed By: #### C NATIVIDAD, BMP #### [facility] ([id number]) [address] [place] [address]25 #### HA1C #### [facility] ([id number]) [address] [place] [address] Platelets (Bld) [#/Vol] 245 10*3/uL Normal 150-450 [facility] Comment on above: Performed By: #### Renita HENSON, BMP #### [facility] ([id number]) [address] [place] [address] #### HA1C #### [facility] ([id number]) [address], [address] [place] [address] RBC COUNT 3.03 X10E12/L Low 3.80-5.20 [facility] Comment on above: Performed By: #### C NATIVIDAD, BMP #### [facility] ([id number]) [address] [place] [address]56 #### HA1C #### [facility] ([id number]) [address], [address] [place] [address] WBC (Bld) [#/Vol] 9.8 10*3/uL Normal 4.0-11.0 [facility] Comment on above: Performed By: #### C NATIVIDAD, BMP #### [facility] ([id number]) [address] [place] [address]686 #### HA1C #### [facility] ([id number]) [address] [place] [address] HGB A1C (GLYCO-HGB)on 2023 Glucose [Mass/Vol] 171 mg/dL Normal [facility] Comment on above: Performed By: #### C TIFFANY, WILSON, 1751-7, 95093-5, 2777-1, 2731-8, 38868-0 #### [facility] ([id number]) [address] [place] [address] HbA1c (Bld) [Mass fraction] 7.6 % High 4.4-5.6 [facility] Comment on above: Result Comment: NOTE ADA Guidelines Result HgbA1c Normal : less than 5.7 % Prediabetes : 5.7 % to 6.4 % Diabetes : > 6.4 % Use with caution in patients with abnormal hemoglobin variants as the half-life of red blood cells and in vivo glycation rates are affected. Performed By: #### C TIFFANY, WILSON, 1750-7, 93264-8, 2777-1, 2731-8, 94828-1 #### [facility] ([id number]) [address], [address] [place] [address] CT HEAD WO IV CONTRASTon CT HEAD [...] as reasonably achievable. Electronically signed: Eddi Tapia. [facility] Comment on above: Order Comment: In on e year, follow up ventricle size s/p CLAIM REVIEW MEDICAL DIRECTOR shunt Follow-Upon 03-16-2024 Follow-Up [id number] Jb Goodwin Y 1945 F Date Provider Department Center 03/16/2024 Elina-VALE BOWSER [facility] SURG [place] Family History Problem Relation Age of Onset Diabetes Mother Hypertension Father Coronary artery disease Father Family Status - Relation Status Age at Mother Father Level of Service:84704 [place] OFFICE/OUTPATIENT ESTABLISHED MOD MDM 30 MIN Reason for Visit and Comments: Follow-up [973323] - Pt is here for a [address]/VPSS. [facility] 36on 02-28-2024 36 LVM with pt's daught er updating her on above mentioned. [facility] 36 Pt's daughter Isidoro arnett called stating that pt is currently admitted to [facility] for possible stroke. Ileana stated that pt's speech was slurred and right side of face was drooping. [place] is needing Shunt make and model numbers prior to MRI. I am unable to locate. [facility] PET CT SKULL TO THIGHon [...] Acevedo MD on 02/20/2024 6:48 PM Normal [facility] 36on 02-11-2024 36 Spoke with daughter. Daughter stated that she would like to keep CT and appt times as is. No further action needed. Normal [facility] 36on 02-10-2024 36 Pts daughter called in requesting if Pts appt could be moved up along with her CT to 03/06/24 due to traveling. Daughter states hse has an appt here at 2:45 Please Advise. Thank You [facility] Telephoneon 02-10-2024 Telephone [id number] Jb Goodwin 1945 F Date Provider Department Center 02/10/2024 Alexis8-PAM GROVES [facility] SURG Second Fl Family History Problem Relation Age of Onset Diabetes Mother Hypertension Father Coronary artery disease Father Family Status - Relation Status Age at Mother Father [facility] POCT urinalysis dipstick onl yon 02-09-2024 Appearance (U) cloudy [facility] External Poct Urine Bilirubin Negative [facility] External Poct Urine Blood Trace [facility] External Poct Urine Color yellow [facility] External Poct Urine Glucose Negative [facility] External Poct Urine Ketones Negative [facility] External Poct Urine Leukocyte Esterase 2+ [facility] External Poct Urine Nitrite Positive [facility] External Poct Urine Ph 6.5 [facility] External Poct Urine Protein Trace [facility] External Poct Urine Specific [place] 1.020 [facility] External Poct Urine Urobilinogen 0.2 [facility] URINE CULTUREon 02-09-2024 Bacteria identified Cx [...] F TRIMETH/SULFAMETHOXAZOL E S <=/19 F Susceptible [facility] Comment on above: Performed By: #### 6 30-4 #### [facility] ([id number]) [address], [address] [place] [address] 36on 02-07-2024 36 LVM for pt of upcomi ng CT/VPSS and follow up with Vale Bowser CNP. Reminder letter sent to pt's home. Normal [facility] ALBUMINon 01-10-2024 Albumin [Mass/Vol] 4.0 g/dL Normal 3.2-5.3 [facility] Comment on above: Performed By: #### C BC, BMP, 1750-7, 53543-8, 2777-1, 2731-8, 72440-4 #### [facility] ([id number]) [address], [address] [place] [address] BASIC METABOLIC PANLon 01-10 Anion gap [Moles/Vol] 8 mmol/L Normal 5-15 [facility] Comment on above: Performed By: #### C BC, BMP, 175-7, 00409-3, 2777-1, 2731-8, 36537-3 #### [facility] ([id number]) [address], [address] [place] [address] Calcium [Mass/Vol] 9.1 mg/dL Normal 8.5-10.5 [facility] Comment on above: Performed By: #### C BC, BMP, 175-7, 25963-8, 2777-1, 2731-8, 87462-5 #### [facility] ([id number]) [address], [address] [place] [address] Chloride [Moles/Vol] 101 mmol/L Normal 98-109 [facility] Comment on above: Performed By: #### Renita ALLEN, BMP, 1750-7, 74323-8, 7-1, 2731-8, 57219-1 #### [facility] ([id number]) [address], [address] [place] [address] CO2 [Moles/Vol] 29 mmol/L Normal 22-32 [facility] Comment on above: Performed By: #### C TIFFANY, BMP, 1750-7, 64561-8, 2776-1, 273-8, 42896-8 #### [facility] ([id number]) [address], [address] [place] [address] Creatinine [Mass/Vol] 1.46 mg/dL High 0.40-1.00 [facility] Comment on above: Result Comment: METH OD TRACEABLE TO IDMS STANDARD Performed By: #### C TIFFANY, WILSON, 1750-, 30329-5, 2776-1, 273-8, 87480-1 #### [facility] ([id number]) [address], [address] [place] [address] GFR/1.73 sq M.predicted among non-blacks MDRD (S/P/Bld) [Vol rate/Area] 37 mL/min/{1.73_m2} Low >59 [facility] Comment on above: Result Comment: Reported eGFR is based on the CKD-EPI 2020 equation that does not use a race coefficient. Performed By: #### C TIFFANY, BMP, 1750-, 07007-4, 2776-1, 273-8, 76004-4 #### [facility] ([id number]) [address], [address] [place] [address] Glucose [Mass/Vol] 300 mg/dL High 65-99 [facility] Comment on above: Performed By: #### C BC, BMP, 1750-7, 11182-8, 2777-1, 2731-8, 25261-6 #### [facility] ([id number]) [address], [address] [place] [address] Potassium [Moles/Vol] 4.4 mmol/L Normal 3.5-5.0 [facility] Comment on above: Performed By: #### C BC, BMP, 1750-7, 63141-5, 2777-1, 2731-8, 12028-6 #### [facility] ([id number]) [address], [facility] [address] [place] [address] Sodium [Moles/Vol] 138 mmol/L Normal 134-146 [facility] Comment on above: Performed By: #### Renita BC, BMP, 1750-, 04219-0, 2776-1, 2730-8, 16739-3 #### [facility] ([id number]) [address], [address] [place] [address] Urea nitrogen [Mass/Vol] 26 mg/dL Normal 5-27 [facility] Comment on above: Performed By: #### C BC, BMP, 1750-7, 94640-5, 7-1, 2731-8, 14884-7 #### [facility] ([id number]) [address], [address] [place] [address] COMPLETE BLOOD COUNTon 01-10 Erythrocyte distribution width (RBC) [Ratio] 15.2 % High 11.5-15.0 [facility] Comment on above: Performed By: #### C BC, BMP, 1750-, 03023-2, 7-1, 2731-8, 26137-7 #### [facility] ([id number]) [address], [address] [place] [address] Hematocrit (Bld) [Volume fraction] 31.6 % Low 35-47 [facility] Comment on above: Performed By: #### C BC, BMP, 1750-, 59380-8, 2776-1, 273-8, 97330-1 #### [facility] ([id number]) [address], [address] [place] [address] Hemoglobin (Bld) [Mass/Vol] 10.3 g/dL Low 11.7-15.5 [facility] Comment on above: Performed By: #### C BC, BMP, 1751-05, 23003-7, 2776-1, 273-8, 86594-4 #### [facility] ([id number]) [address], [address] [place] [address] MCH (RBC) [Entitic mass] 27.7 pg Normal 27-34 [facility] Comment on above: Performed By: #### Renita BC, BMP, 1751-05, 52708-3, 2776-, 2730-8, 14299-3 #### [facility] ([id number]) [address], [address] [place] [address] MCHC (RBC) [Mass/Vol] 32.5 g/dL Normal 32-36 [facility] Comment on above: Performed By: #### Renita BC, BMP, 1751-05, 53658-0, 2776-1, 2730-8, 90986-6 #### [facility] ([id number]) [address], [address] [place] [address] MCV (RBC) [Entitic vol] 85 fL Normal 80-100 [facility] Comment on above: Performed By: #### Renita BC, BMP, 1751-05, 12603-8, 2776-, 273-8, 84939-9 #### [facility] ([id number]) [address] [place] [address] Platelet mean volume (Bld) [Entitic vol] 8.5 fL Normal 7-12 [facility] Comment on above: Performed By: #### C BC, BMP, 1750-7, 32645-0, 2777-1, 2731-8, 93118-6 #### [facility] ([id number]) [address], [address] [place] [address] Platelets (Bld) [#/Vol] 231 10*3/uL Normal 150-450 [facility] Comment on above: Performed By: #### C BC, BMP, 1750-7, 32940-8, 2777-1, 2731-8, 80836-9 #### [facility] ([id number]) [address], [facility] [address] [place] [address] RBC COUNT 3.70 X10E12/L Low 3.80-5.20 [facility] Comment on above: Performed By: #### Renita BC, BMP, 1750-7, 06965-9, 7-1, 2731-8, 08957-5 #### [facility] ([id number]) [address], [address] [place] [address] WBC (Bld) [#/Vol] 4.8 10*3/uL Normal 4.0-11.0 [facility] Comment on above: Performed By: #### Renita BC, BMP, 1750-7, 03470-9, 7-1, 2731-8, 75616-6 #### [facility] ([id number]) [address] [place] [address] HGB A1C (GLYCO-HGB)on 2023 Glucose [Mass/Vol] 203 mg/dL Normal [facility] Comment on above: Performed By: #### Renita BC, BMP, 1750-7, 62292-2, 2777-1, 2731-8, 74923-9 #### [facility] ([id number]) [address] [place] [address] HbA1c (Bld) [Mass fraction] 8.7 % High 4.4-5.6 [facility] Comment on above: Result Comment: NOTE ADA Guidelines Result HgbA1c Normal : less than 5.7 % Prediabetes : 5.7 % to 6.4 % Diabetes : > 6.4 % Use with caution in patients with abnormal hemoglobin variants as the half-life of red blood cells and in vivo glycation rates are affected. Performed By: #### C TIFFANY, BMP, 1750-7, 68959-2, 2777-1, 2731-8, 46921-0 #### [facility] ([id number]) [address], [address] [place] [address] MAGNESIUMon 01-10-2024 Magnesium [Mass/Vol] 1.9 mg/dL Normal 1.8-2.6 [facility] Comment on above: Performed By: #### C TIFFANY, BMP, 1751-05, 22365-2, 2777-1, 2731-8, 37526-6 #### [facility] ([id number]) [address], [address] [place] [address] PHOSPHORUSon 01-10-2024 Phosphate [Mass/Vol] 3.8 mg/dL Normal 2.4-4.9 [facility] Comment on above: Performed By: #### C TIFFANY, BMP, 1751-05, 45063-1, 2777-1, 2731-8, 38676-4 #### [facility] ([id number]) [address], [address] [place] [address] Parathyrin.intact [Mass/Vol] on 01-10-2024 PTH INTACT 71 pg/mL Normal 12-88 [facility] Comment on above: Performed By: #### Renita BC, BMP, 1750-7, 76657-9, 2777-1, 2731-8, 20084-2 #### [facility] ([id number]) [address] [place] [address], [address] [place] [address] Vitamin D+Metabolites [Mass/ Vol]on 01-10-2024 VITAMIN D 25 HYD TOT 38.9 ng/mL Normal 30-100 [facility] Comment on above: Result Comment: Vitamin D status 25 [place] Vitamin D Deficiency <20 ng/mL Insufficiency 20-29 ng/mL Sufficiency 30-100 ng/mL Toxicity >100 ng/mL NOTE: A pediatric reference range has not been established by the change management specialist of this kit. The [place] [employer] recommends a Vitamin D level of = or >20ng/mL in infants and children. Performed By: #### C , [facility], 1751-7, 86170-6, 2777-1, 2731-8, 54192-7 #### [facility] ([id number]) [address] [place] [address], [address] [place] [address] Follow-Upon 03-23-2023 Follow-Up [id number] Jb Goodwin Y 1945 F Date Provider Department Center 03/23/2023 VALE TAMAYO [facility] SUR[facility] [place] Family History Problem Relation Age of Onset Diabetes Mother Hypertension Father Coronary artery disease Father Family Status - Relation Status Age at Mother Father Level of Service:82818 [place] OFFICE/OUTPATIENT ESTABLISHED LOW MDM 20-29 MIN Reason for Visit and Comments: Follow-up [904557] - shunt check s/p mri; Patient has been off balance. Normal [facility] CT CARDIAC W C [facility] CARD ONLYon 01-18-2023 CT CARDIAC W C [facility] CARD ONLY EXAMINATION: CT [...] valve measurements were analyzed and provided by [employer] and are reported separately to the cardiology department. 3. Severe triple-vessel coronary artery calcifications. 4. Small sliding hiatal hernia. Interpreted by: Brennan Parra MD Signed by: Brennan Parra MD 01/18/23 Final result Normal [facility] CTA CHEST ABDOMEN PELVIS W C [facility] 01-15-2023 CTA CHEST ABDOMEN [...] with a couple of ill-defined sclerotic foci. CLAIM REVIEW [employer]ICAL DIRECTOR shunt tubing in the right neck and [...] adenopathy. Very small fat containing umbilical hernia. CLAIM REVIEW [employer]ICAL DIRECTOR shunt tubing enters the abdomen in the [...] pelvis which may be related to the CLAIM REVIEW MEDICAL DIRECTOR shunt catheter. There is a cystic left [...] for planned (more content not included)... Normal [facility] No acute abnormality identified on CTA of [...] recommended. 5 mm subpleural right lung nodule. CLAIM REVIEW MEDICAL DIRECTOR shunt noted. Small hiatal hernia. The findings [...] Findings Committee. J Am Janel Radiol 2010;7:754-773 [facility] RIS CONSOLIDATED EXAMINATION: CTA OF THE [...] with a couple of ill-defined sclerotic foci. CLAIM REVIEW MEDICAL DIRECTOR shunt tubing in the right neck and [...] adenopathy. Very small fat containing umbilical hernia. CLAIM REVIEW MEDICAL DIRECTOR shunt tubing enters the abdomen in the [...] pelvis which may be related to the CLAIM REVIEW MEDICAL DIRECTOR shunt catheter. There is a cystic left [...] in the left flank and gluteal regions. [facility] Tato Whaley MD - 01/15/2023 EXAMINATION: [...] with a couple of ill-defined sclerotic foci. CLAIM REVIEW MEDICAL DIRECTOR shunt tubing in the right neck and [...] adenopathy. Very small fat containing umbilical hernia. CLAIM REVIEW MEDICAL DIRECTOR shunt tubing enters the abdomen in the [...] pelvis which may be related to the CLAIM REVIEW MEDICAL DIRECTOR shunt catheter. There is a cystic left [...] and gluteal regions. (more content not included)... [employer] Work Phone: CTA CHEST ABDOMEN PELVIS W C ONTRASTOrdered By: Tato Syed on 01-15-2023 [employer] Work Phone: PULMONARY FUNCTIONon 023 [address] [id number] PULMONARY FUNCTION PATIENT NAME: CUCA GOODWIN : 1945 MED REC NO: [id number] ROOM: ACCOUNT NO: [id number] ADMIT DATE: 01/13/2023 PROVIDER: Whit Maloney DATE [...] correlation is recommended. WHIT MALONEY [id number] Doc#: [id number] CC: Normal [facility] CTA CHEST ABDOMEN PELVIS W C ONTRASTon 01-13-2023 Radiology Study observation (narrative) [facility] [employer] Work Phone: POC Glucose Fingerstickon Glucose [Mass/Vol] 104 mg/dL 65 - 105 mg/dL [facility] [employer] Basic Metabolic Panelon 11-16 Anion gap [Moles/Vol] 11 mmol/L 9 - 17 mmol/L [facility] [employer] Calcium [Mass/Vol] 9.0 mg/dL 8.6 - 10. 4 mg/dL [facility] [employer] Chloride [Moles/Vol] 105 mmol/L 98 - 107 mmol/L [facility] [employer] CO2 [Moles/Vol] 20 mmol/L 20 - 31 mmol/L [facility] Creatinine [Mass/Vol] 1.04 mg/dL High 0.50 - 0.90 mg/dL [facility] GFR/1.73 sq M.predicted MDRD (S/P/Bld) [Vol rate/Area] 56 mL/min/{1.73_m2} Low - PINF [facility] Comment on above: These results [...] 131 mg/dL High 70 - 99 mg/dL [facility] Interpretation and review of laboratory results Abnormal [facility] Potassium [Moles/Vol] 4.3 mmol/L 3.7 - 5.3 mmol/L [facility] Sodium [Moles/Vol] 136 mmol/L 135 - 144 mmol/L [facility] Urea nitrogen (BldV) [Mass/Vol] 17 mg/dL 8 - 23 mg/dL [facility] Basic Metabolic Profon 12-10 Anion gap [Moles/Vol] 11 mmol/L Normal 9-17 [facility] Comment on above: Performed By: #### H H, BMPX #### [facility] [address] [id number] Manufacturing Maintenance Technician: Luis Solis MD Calcium [Mass/Vol] 9.0 mg/dL Normal 8.6-10.4 [facility] Comment on above: Performed By: #### H H, BMPX #### [facility] [address] [place], [place] [phone] Manufacturing Maintenance Technician: Luis Solis MD Chloride [Moles/Vol] 105 mmol/L Normal 98-107 [facility] Comment on above: Performed By: #### H H, BMPX #### [facility] [address] [place] [address] Manufacturing Maintenance Technician: Luis Solis MD CO2 [Moles/Vol] 20 mmol/L Normal 20-31 [facility] Comment on above: Performed By: #### H H, BMPX #### [facility] [address] [place] [address] Manufacturing Maintenance Technician: Luis Solis MD Creatinine [Mass/Vol] 1.04 mg/dL High 0.50-0.90 [facility] Comment on above: Performed By: #### H H, BMPX #### [facility] [address] [place] [address] Manufacturing Maintenance Technician: Luis Solis MD GFR/1.73 sq M.predicted among non-blacks MDRD (S/P/Bld) [Vol rate/Area] 56 mL/min/{1.73_m2} Low >60 [facility] Comment on above: Result Comment: These results [...] Performed By: #### H H, BMPX #### [facility] [address] [place] [address] Manufacturing Maintenance Technician: Luis Solis MD Glucose [Mass/Vol] 131 mg/dL High 70-99 [facility] Comment on above: Performed By: #### H H, BMPX #### [facility] [address] [place] [address] Manufacturing Maintenance Technician: Luis Solis MD Potassium [Moles/Vol] 4.3 mmol/L Normal 3.7-5.3 [facility] Comment on above: Performed By: #### H H, BMPX #### [facility] [address] [place] [address] Manufacturing Maintenance Technician: Luis Solis MD Sodium [Moles/Vol] 136 mmol/L Normal 135-144 [facility] Comment on above: Performed By: #### H H, BMPX #### [facility] [address] [place], [place] [phone] Manufacturing Maintenance Technician: Luis Solis MD Urea nitrogen [Mass/Vol] 17 mg/dL Normal 8-23 [facility] Comment on above: Performed By: #### H H, BMPX #### [facility] [address] [place] [address] Manufacturing Maintenance Technician: Luis Solis MD Hemoglobin and Hematocriton 12-10-2022 Hematocrit (Bld) [Volume fraction] 25.5 % Low 36.3 - 47.1 % [facility] Hemoglobin (Bld) [Mass/Vol] 7.9 g/dL Low 11.9 - 15.1 g/dL [facility] Interpretation and review of laboratory results Abnormal [facility] Hgb/Hcton 12-10-2022 Hematocrit (Bld) [Volume fraction] 25.5 % Low 36.3-47.1 [facility] Comment on above: Performed By: #### H H, BMPX #### [facility] [employer] [address] [place] [address] [id number] Manufacturing Maintenance Technician: Luis Solis MD Hemoglobin (Bld) [Mass/Vol] 7.9 g/dL Low 11.9-15.1 [facility] Comment on above: Performed By: #### H H, BMPX #### [facility] [address] [place] [address] Manufacturing Maintenance Technician: Luis Solis MD Laboratory - Blood bankon Blood product type Nom (BPU) Leukocyte Reduced Red Cell [facility] No Panel Informationon 12-10 Blood Bank ISBT Product Blood Type 9500 [facility] Blood Bank Unit Type and Rh Negative [facility] Crossmatch Result COMPATIBLE [facility] Dispense Status TRANSFUSED [facility] Transfusion Status OK TO TRANSFUSE B ON [facility] Unit Divison 0 [facility] POC Glucose Fingerstickon Glucose [Mass/Vol] 105 mg/dL 65 - 105 mg/dL [facility] Glucose [Mass/Vol] 119 mg/dL High 65 - 105 mg/dL [facility] Interpretation and review of laboratory results Abnormal [facility] Glucose [Mass/Vol] 159 mg/dL High 65 - 105 mg/dL [facility] Interpretation and review of laboratory results Abnormal [facility] Glucose [Mass/Vol] 70 mg/dL 65 - 105 mg/dL [facility] Glucose [Mass/Vol] 41 mg/dL Low 65 - 105 mg/dL [facility] Comment on above: Critical Noted Interpretation and review of laboratory results Abnormal [facility] TYPE AND SCREENon 12-10-2022 ABO/Rh Negative [facility] Arm Band Number [id number] [facility] Blood Bank Blood Product Expiration Date [facility] Blood Bank Blood Product Expiration Date [id number] [facility] Blood Bank Blood Product Expiration Date [id number] [facility] Blood product unit ID (Dose) [#] [id number] [facility] Blood product unit ID (Dose) [#] [id number] [facility] Blood product unit ID (Dose) [#] [id number] [facility] Expiration Date 12/10/2022,2359 [facility] Product Code Blood Bank [id number] [facility] Product Code Blood Bank [id number] [facility] Product Code Blood Bank [id number] [facility] Unit Issue Date/Time [id number] [facility] Unit Issue Date/Time [id number] [facility] Unit Issue Date/Time [id number] [facility] Basic Metab w/rfx MGon 12-09 Anion gap [Moles/Vol] 10 mmol/L Normal 9-17 [facility] Comment on above: Performed By: #### H H, BMPX #### [facility] [address] [place] [address] Manufacturing Maintenance Technician: Luis Solis MD Calcium [Mass/Vol] 8.6 mg/dL Normal 8.6-10.4 [facility] Comment on above: Performed By: #### H H, BMPX #### [facility] [address] [place] [address] Manufacturing Maintenance Technician: Luis Solis MD Chloride [Moles/Vol] 106 mmol/L Normal 98-107 [facility] Comment on above: Performed By: #### H H, BMPX #### [facility] [address] [place] [address] Manufacturing Maintenance Technician: Luis Solis MD CO2 [Moles/Vol] 21 mmol/L Normal 20-31 [facility] Comment on above: Performed By: #### H H, BMPX #### [facility] [address] [place] [address] Manufacturing Maintenance Technician: Luis Solis MD Creatinine [Mass/Vol] 1.33 mg/dL High 0.50-0.90 [facility] Comment on above: Performed By: #### H H, BMPX #### [facility] [address] [place] [address] Manufacturing Maintenance Technician: Luis Solis MD GFR/1.73 sq M.predicted among non-blacks MDRD (S/P/Bld) [Vol rate/Area] 41 mL/min/{1.73_m2} Low >60 [facility] Comment on above: Result Comment: Effective Aug [...] Performed By: #### H H, BMPX #### [facility] [address] [place] [address] Manufacturing Maintenance Technician: Luis Solis MD Glucose [Mass/Vol] 102 mg/dL High 70-99 [facility] Comment on above: Performed By: #### H H, BMPX #### [facility] [address] [place] [address] Manufacturing Maintenance Technician: Luis Solis MD Potassium [Moles/Vol] 4.1 mmol/L Normal 3.7-5.3 [facility] Comment on above: Performed By: #### H H, BMPX #### [employer] [address] [place] [address] Manufacturing Maintenance Technician: Luis Solis MD Sodium [Moles/Vol] 137 mmol/L Normal 135-144 [facility] Comment on above: Performed By: #### H H, BMPX #### [facility] [address] [place] [address] Manufacturing Maintenance Technician: Luis Solis MD Urea nitrogen [Mass/Vol] 19 mg/dL Normal 8-23 [facility] Comment on above: Performed By: #### H H, BMPX #### [facility] [address] [place] [address] Manufacturing Maintenance Technician: Luis Solis MD Basic Metabolic Panel w/ Ref pierre to MGon 12-09-2022 Anion gap [Moles/Vol] 10 mmol/L 9 - 17 mmol/L [facility] Calcium [Mass/Vol] 8.6 mg/dL 8.6 - 10. 4 mg/dL [facility] Chloride [Moles/Vol] 106 mmol/L 98 - 107 mmol/L [facility] CO2 [Moles/Vol] 21 mmol/L 20 - 31 mmol/L [facility] Creatinine [Mass/Vol] 1.33 mg/dL High 0.50 - 0.90 mg/dL [facility] GFR/1.73 sq M.predicted MDRD (S/P/Bld) [Vol rate/Area] 41 mL/min/{1.73_m2} Low - PINF [facility] Comment on above: Effective Aug [...] 102 mg/dL High 70 - 99 mg/dL [facility] Interpretation and review of laboratory results Abnormal [facility] Potassium [Moles/Vol] 4.1 mmol/L 3.7 - 5.3 mmol/L [facility] Sodium [Moles/Vol] 137 mmol/L 135 - 144 mmol/L [facility] Urea nitrogen (BldV) [Mass/Vol] 19 mg/dL 8 - 23 mg/dL [facility] Hemoglobin and Hematocriton 12-09-2022 Hematocrit (Bld) [Volume fraction] 25.6 % Low 36.3 - 47.1 % [facility] Hemoglobin (Bld) [Mass/Vol] 8.0 g/dL Low 11.9 - 15.1 g/dL [facility] Interpretation and review of laboratory results Abnormal [facility] Hematocrit (Bld) [Volume fraction] 23.5 % Low 36.3 - 47.1 % [facility] Hemoglobin (Bld) [Mass/Vol] 7.1 g/dL Low 11.9 - 15.1 g/dL [facility] Interpretation and review of laboratory results Abnormal [facility] Hgb/Hcton 12-09-2022 Hematocrit (Bld) [Volume fraction] 25.6 % Low 36.3-47.1 [facility] Comment on above: Performed By: #### H H, BMPX #### [facility] [address] [place], [place] [phone] Manufacturing Maintenance Technician: Luis Solis MD Hemoglobin (Bld) [Mass/Vol] 8.0 g/dL Low 11.9-15.1 [facility] Comment on above: Performed By: #### H H, BMPX #### [facility] [address] [place] [address] [phone] Manufacturing Maintenance Technician: Luis Solis MD Hematocrit (Bld) [Volume fraction] 23.5 % Low 36.3-47.1 [facility] Comment on above: Performed By: #### H H, BMPX #### [facility] [address] [place] [address] [phone] Manufacturing Maintenance Technician: Luis Solis MD Hemoglobin (Bld) [Mass/Vol] 7.1 g/dL Low 11.9-15.1 [facility] Comment on above: Performed By: #### H H, BMPX #### [facility] [address] [place] [address] [phone] Manufacturing Maintenance Technician: Luis Solis MD POC Glucose Fingerstickon Glucose [Mass/Vol] 143 mg/dL High 65 - 105 mg/dL [facility] [employer] Interpretation and review of laboratory results Abnormal [facility] Glucose [Mass/Vol] 96 mg/dL 65 - 105 mg/dL [facility] [employer] Glucose [Mass/Vol] 114 mg/dL High 65 - 105 mg/dL [facility] Interpretation and review of laboratory results Abnormal [facility] [employer] Glucose [Mass/Vol] 111 mg/dL High 65 - 105 mg/dL [facility] Interpretation and review of laboratory results Abnormal [facility] Type + Screenon 12-09-2022 Type + Screen Sample Expiration 12/10/2022,2359 Arm Band Number [id number] ABO/Rh(D) O NEGATIVE Antibody Screen NEGATIVE Unit Number [id number] Blood Component Type Leukocyte Reduced Red Cell Unit Division 00 Status of Unit TRANSFUSED Transfusion Status OK TO TRANSFUSE Crossmatch Result COMPATIBLE Unit Number [id number] Blood Component Type Leukocyte Reduced Red Cell Unit Division 00 Status of Unit TRANSFUSED Transfusion Status OK TO TRANSFUSE Crossmatch Result COMPATIBLE Unit Number [id number] Blood Component Type Leukocyte Reduced Red Cell Unit Division 00 Status of Unit TRANSFUSED Transfusion Status OK TO TRANSFUSE Crossmatch Result COMPATIBLE Normal [facility] Comment on above: Performed By: #### Jeff DALE BMPX #### [address] [phone] Manufacturing Maintenance Technician: Luis Solis MD Basic Metab w/rfx MGon 12-08 Anion gap [Moles/Vol] 9 mmol/L Normal 9-17 [facility] Comment on above: Performed By: #### Jeff DALE BMPX #### [facility] [employer] [address] [place] [address] Manufacturing Maintenance Technician: Luis Solis MD Calcium [Mass/Vol] 8.6 mg/dL Normal 8.6-10.4 [facility] Comment on above: Performed By: #### R CHITO, BMPX #### [facility] [address] [place] [address] Manufacturing Maintenance Technician: Luis Solis MD Chloride [Moles/Vol] 106 mmol/L Normal 98-107 [facility] Comment on above: Performed By: #### R CHITO, BMPX #### [facility] [address] [place] [address] Manufacturing Maintenance Technician: Luis Solis MD CO2 [Moles/Vol] 24 mmol/L Normal 20-31 [facility] Comment on above: Performed By: #### R CHITO, BMPX #### [facility] [employer] [address] [place] [address] Manufacturing Maintenance Technician: Luis Solis MD Creatinine [Mass/Vol] 1.33 mg/dL High 0.50-0.90 [facility] Comment on above: Performed By: #### R CHITO, BMPX #### [address] [address] Manufacturing Maintenance Technician: Luis Solis MD GFR/1.73 sq M.predicted among non-blacks MDRD (S/P/Bld) [Vol rate/Area] 41 mL/min/{1.73_m2} Low >60 [facility] Comment on above: Result Comment: Effective Aug [...] Performed By: #### Jeff DALE BMPX #### [address] [address] Manufacturing Maintenance Technician: Luis Solis MD Glucose [Mass/Vol] 160 mg/dL High 70-99 [facility] Comment on above: Performed By: #### R CHITO BMPX #### [facility] [employer] [address] [place] [address] Manufacturing Maintenance Technician: Luis Solis MD Potassium [Moles/Vol] 4.4 mmol/L Normal 3.7-5.3 [facility] Comment on above: Performed By: #### R CHITO, BMPX #### [facility] [employer] [address] [place] [address] Manufacturing Maintenance Technician: Luis Slois MD Sodium [Moles/Vol] 139 mmol/L Normal 135-144 [facility] Comment on above: Performed By: #### R EJEC, BMPX #### [facility] [address] [place], [place] [phone] Manufacturing Maintenance Technician: Luis Solis MD Urea nitrogen [Mass/Vol] 21 mg/dL Normal 8-23 [facility] Comment on above: Performed By: #### R EJEC, BMPX #### [facility] [address] [place], [place] [phone] Manufacturing Maintenance Technician: Luis Solis MD Basic Metabolic Panelon - Anion gap [Moles/Vol] 7 mmol/L Low 9 - 17 mmol/L [facility] Calcium [Mass/Vol] 8.5 mg/dL Low 8.6 - 10. 4 mg/dL [facility] Chloride [Moles/Vol] 110 mmol/L High 98 - 107 mmol/L [facility] CO2 [Moles/Vol] 25 mmol/L 20 - 31 mmol/L [facility] Creatinine [Mass/Vol] 1.43 mg/dL High 0.50 - 0.90 mg/dL [facility] GFR/1.73 sq M.predicted MDRD (S/P/Bld) [Vol rate/Area] 38 mL/min/{1.73_m2} Low - PINF [facility] Comment on above: Effective Aug 17, 2022 [...] 124 mg/dL High 70 - 99 mg/dL [facility] Interpretation and review of laboratory results Abnormal [facility] Potassium [Moles/Vol] 4.7 mmol/L 3.7 - 5.3 mmol/L [facility] Sodium [Moles/Vol] 142 mmol/L 135 - 144 mmol/L [facility] Urea nitrogen (BldV) [Mass/Vol] 23 mg/dL 8 - 23 mg/dL [facility] Basic Metabolic Panel w/ Ref pierre to MGon 12-08-2022 Anion gap [Moles/Vol] 9 mmol/L 9 - 17 mmol/L [facility] Calcium [Mass/Vol] 8.6 mg/dL 8.6 - 10. 4 mg/dL [facility] Chloride [Moles/Vol] 106 mmol/L 98 - 107 mmol/L [facility] CO2 [Moles/Vol] 24 mmol/L 20 - 31 mmol/L [facility] Creatinine [Mass/Vol] 1.33 mg/dL High 0.50 - 0.90 mg/dL [facility] GFR/1.73 sq M.predicted MDRD (S/P/Bld) [Vol rate/Area] 41 mL/min/{1.73_m2} Low - PINF [facility] Comment on above: Effective Aug [...] 160 mg/dL High 70 - 99 mg/dL [facility] Interpretation and review of laboratory results Abnormal [facility] Potassium [Moles/Vol] 4.4 mmol/L 3.7 - 5.3 mmol/L [facility] Sodium [Moles/Vol] 139 mmol/L 135 - 144 mmol/L [facility] Urea nitrogen (BldV) [Mass/Vol] 21 mg/dL 8 - 23 mg/dL [facility] Basic Metabolic Profon 12-08 Anion gap [Moles/Vol] 7 mmol/L Low 9-17 [facility] Comment on above: Performed By: #### B MP, CBC #### [address] [address] Manufacturing Maintenance Technician: Luis Solis MD Calcium [Mass/Vol] 8.5 mg/dL Low 8.6-10.4 [facility] Comment on above: Performed By: #### B MP, CBC #### [address] [address] Manufacturing Maintenance Technician: Luis Solis MD Chloride [Moles/Vol] 110 mmol/L High 98-107 [facility] Comment on above: Performed By: #### B MP, CBC #### [address] [address] Manufacturing Maintenance Technician: Luis Solis MD CO2 [Moles/Vol] 25 mmol/L Normal 20-31 [facility] Comment on above: Performed By: #### B MP, CBC #### [facility] [employer] [address] [place] [address] Manufacturing Maintenance Technician: Luis Solis MD Creatinine [Mass/Vol] 1.43 mg/dL High 0.50-0.90 [facility] Comment on above: Performed By: #### B MP, CBC #### [address] [address] Manufacturing Maintenance Technician: Luis Solis MD GFR/1.73 sq M.predicted among non-blacks MDRD (S/P/Bld) [Vol rate/Area] 38 mL/min/{1.73_m2} Low >60 [facility] Comment on above: Result Comment: Effective Aug [...] Performed By: #### B MP, CBC #### [address] [place] [address] Manufacturing Maintenance Technician: Luis Solis MD Glucose [Mass/Vol] 124 mg/dL High 70-99 [facility] Comment on above: Performed By: #### B MP, CBC #### [facility] [address] [place] [address] Manufacturing Maintenance Technician: Luis Solis MD Potassium [Moles/Vol] 4.7 mmol/L Normal 3.7-5.3 [facility] Comment on above: Performed By: #### B MP, CBC #### [facility] [address] [place] [address] Manufacturing Maintenance Technician: Luis Solis MD Sodium [Moles/Vol] 142 mmol/L Normal 135-144 [facility] Comment on above: Performed By: #### B MP, CBC #### [facility] [employer] [address] [place] [address] Manufacturing Maintenance Technician: Luis Solis MD Urea nitrogen [Mass/Vol] 23 mg/dL Normal 8-23 [facility] Comment on above: Performed By: #### B MP, CBC #### [facility] [employer] [address] [place] [address] Manufacturing Maintenance Technician: Luis Solis MD CBCon 12-08-2022 Erythrocyte distribution width (RBC) [Ratio] 17.8 % High 11.8-14.4 [facility] Comment on above: Performed By: #### B MP, CBC #### [facility] [address] [place] [address] Manufacturing Maintenance Technician: Luis Solis MD Hematocrit (Bld) [Volume fraction] 22.0 % Low 36.3-47.1 [facility] Comment on above: Performed By: #### B MP, CBC #### [facility] [address] [place] [address] Manufacturing Maintenance Technician: Luis Solis MD Hemoglobin (Bld) [Mass/Vol] 6.6 g/dL Critically low 11.9-15.1 [facility] Comment on above: Performed By: #### B MP, CBC #### [address] [address] Manufacturing Maintenance Technician: Luis Solis MD MCH (RBC) [Entitic mass] 27.5 pg Normal 25.2-33.5 [facility] Comment on above: Performed By: #### B MP, CBC #### [address] [address] Manufacturing Maintenance Technician: Luis Solis MD MCHC (RBC) [Mass/Vol] 30.0 g/dL Normal 28.4-34.8 [facility] Comment on above: Performed By: #### B MP, CBC #### [address] [address] Manufacturing Maintenance Technician: Luis Solis MD MCV (RBC) [Entitic vol] 91.7 fL Normal 82.6-102.9 [facility] Comment on above: Performed By: #### B MP, CBC #### [address] [address] Manufacturing Maintenance Technician: Luis Solis MD NRBC Automated 0.0 per 100 WBC Normal 0.0 [facility] Comment on above: Performed By: #### B MP, CBC #### [address] [address] Manufacturing Maintenance Technician: Luis Solis MD Platelet mean volume (Bld) [Entitic vol] 10.3 fL Normal 8.1-13.5 [facility] Comment on above: Performed By: #### B MP, CBC #### [address] [address] Manufacturing Maintenance Technician: Luis Solis MD Platelets (Bld) [#/Vol] 250 10*3/uL Normal 138-453 [facility] Comment on above: Performed By: #### B MP, CBC #### [facility] [address] [place], [place] [phone] Manufacturing Maintenance Technician: Luis Solis MD RBC (Bld) [#/Vol] 2.40 10*6/uL Low 3.95-5.11 [facility] Comment on above: Performed By: #### B MP, CBC #### [facility] [address] [place], [place] [phone] Manufacturing Maintenance Technician: Luis Solis MD WBC (Bld) [#/Vol] 9.2 10*3/uL Normal 3.5-11.3 [facility] Comment on above: Performed By: #### B MP, CBC #### [facility] [address] [place], [place] [phone] Manufacturing Maintenance Technician: Luis Solis MD Hematocrit (Bld) [Volume fraction] 22.0 % Low 36.3 - 47.1 % [facility] Hemoglobin (Bld) [Mass/Vol] 6.6 g/dL Critically low 11.9 - 15.1 g/dL [facility] Interpretation and review of laboratory results Abnormal [facility] MCH (RBC) [Entitic mass] 27.5 pg 25.2 - 33.5 pg [facility] MCHC (RBC) [Mass/Vol] 30.0 g/dL 28.4 - 34.8 g/dL [facility] MCV (RBC) [Entitic vol] 91.7 fL 82.6 - 102.9 fL [facility] NRBC Automated 0.0 0.0 per 100 WBC [facility] [employer] Platelet distribution width (Bld) [Ratio] 17.8 % High 11.8 - 14.4 % [facility] Platelet mean volume (Bld) [Entitic vol] 10.3 fL 8.1 - 13.5 fL [facility] Platelets (Bld) [#/Vol] 250 10*3/uL [facility] RBC (Bld) [#/Vol] 2.40 10*6/uL Low 3.95 - 5.1 1 m/uL [facility] WBC (Bld) [#/Vol] 9.2 10*3/uL [facility] Hemoglobin and Hematocriton 12-08-2022 Hematocrit (Bld) [Volume fraction] 24.4 % Low 36.3 - 47.1 % [facility] Hemoglobin (Bld) [Mass/Vol] 7.4 g/dL Low 11.9 - 15.1 g/dL [facility] Interpretation and review of laboratory results Abnormal [facility] Hematocrit (Bld) [Volume fraction] 24.6 % Low 36.3 - 47.1 % [facility] Hemoglobin (Bld) [Mass/Vol] 7.7 g/dL Low 11.9 - 15.1 g/dL [facility] Interpretation and review of laboratory results Abnormal [facility] Hematocrit (Bld) [Volume fraction] 22.9 % Low 36.3 - 47.1 % [facility] Hemoglobin (Bld) [Mass/Vol] 7.6 g/dL Low 11.9 - 15.1 g/dL [facility] Interpretation and review of laboratory results Abnormal [facility] Hematocrit (Bld) [Volume fraction] 21.9 % Low 36.3 - 47.1 % [facility] Hemoglobin (Bld) [Mass/Vol] 6.5 g/dL Critically low 11.9 - 15.1 g/dL [facility] Interpretation and review of laboratory results Abnormal [facility] Hgb/Hcton 12-08-2022 Hematocrit (Bld) [Volume fraction] 24.4 % Low 36.3-47.1 [facility] Comment on above: Performed By: #### R CHITO, BMPX #### [facility] [place] [address] Manufacturing Maintenance Technician: Luis Solis MD Hemoglobin (Bld) [Mass/Vol] 7.4 g/dL Low 11.9-15.1 [facility] Comment on above: Performed By: #### R EJEC, BMPX #### [facility] [address] [place] [address] Manufacturing Maintenance Technician: Luis Solis MD Hematocrit (Bld) [Volume fraction] 24.6 % Low 36.3-47.1 [facility] Comment on above: Performed By: #### R EJEC, BMPX #### [facility] [address] [place] [address] Manufacturing Maintenance Technician: Luis Solis MD Hemoglobin (Bld) [Mass/Vol] 7.7 g/dL Low 11.9-15.1 [facility] Comment on above: Performed By: #### R EJEC, BMPX #### [facility] [address] [place] [address] Manufacturing Maintenance Technician: Luis Solis MD Hematocrit (Bld) [Volume fraction] 22.9 % Low 36.3-47.1 [facility] Comment on above: Performed By: #### R CHITO, BMPX #### [facility] [address] [place] [address] Manufacturing Maintenance Technician: Luis Solis MD Hemoglobin (Bld) [Mass/Vol] 7.6 g/dL Low 11.9-15.1 [facility] Comment on above: Performed By: #### R EJEC, BMPX #### [facility] [address] [place] [address] Manufacturing Maintenance Technician: Luis Solis MD Hematocrit (Bld) [Volume fraction] 21.9 % Low 36.3-47.1 [facility] Comment on above: Performed By: #### H H #### [facility] [address] [place] [address] Manufacturing Maintenance Technician: Luis Solis MD Hemoglobin (Bld) [Mass/Vol] 6.5 g/dL Critically low 11.9-15.1 [facility] Comment on above: Performed By: #### H H #### [facility] [address] [place] [address] Manufacturing Maintenance Technician: Luis Solis MD Hematocrit (Bld) [Volume fraction] 23.7 % Low 36.3-47.1 [facility] Comment on above: Performed By: #### R ZAINABEC, BMPX #### [facility] [address] [place], [place] [phone] Manufacturing Maintenance Technician: Luis Solis MD Hemoglobin (Bld) [Mass/Vol] 7.6 g/dL Low 11.9-15.1 [facility] Comment on above: Performed By: #### R ZAINABEC, BMPX #### [facility] [place], [place] [phone] Manufacturing Maintenance Technician: Luis Solis MD POC Glucose Fingerstickon Glucose [Mass/Vol] 129 mg/dL High 65 - 105 mg/dL [facility] Interpretation and review of laboratory results Abnormal [facility] Glucose [Mass/Vol] 138 mg/dL High 65 - 105 mg/dL [facility] Interpretation and review of laboratory results Abnormal [facility] Glucose [Mass/Vol] 164 mg/dL High 65 - 105 mg/dL [facility] Interpretation and review of laboratory results Abnormal [facility] SPECIMEN REJECTIONon 023 Ordered Test [facility] Reason for Rejection Unable to perform testing: Specimen clotted. [facility] Specimen source Nom (Unsp spec) .BLOOD [facility] Specimen Rejectionon 023 Reason for rejection Unable to perform testing: Specimen clotted. Normal [facility] Comment on above: Performed By: #### R EJEC, BMPX #### [facility] [address] [place], [place] [phone] Manufacturing Maintenance Technician: Luis Solis MD Source of sample .BLOOD Normal [facility] Comment on above: Performed By: #### R CHITO BMPX #### [facility] [address] [place], [place] [phone] Manufacturing Maintenance Technician: Luis Solis MD Test ordered [facility] Comment on above: Performed By: #### R CHITO BMPX #### [facility] [address] [place], [place] [phone] Manufacturing Maintenance Technician: Luis Solis MD Activated clotting timeon Activated Clotting Time 262 High [facility] Interpretation and review of laboratory results Abnormal [facility] CHLORIDE (POC)on 12-07-2022 Chloride [Moles/Vol] 107 mmol/L 98 - 107 mmol/L [facility] Catheterization and angiogra phy procedure details panelon 12-07-2022 [facility] Work Phone: Creatinine W/GFR Point of Ca reon 12-07-2022 Creatinine [Mass/Vol] 1.35 mg/dL High 0.51 - 1.19 mg/dL [facility] eGFR, POC 41 mL/min/1.73m 2 [facility] Comment on above: Effective Aug 17, 2022 [...] 23.7 % Low 36.3 - 47.1 % [facility] Hemoglobin (Bld) [Mass/Vol] 7.6 g/dL Low 11.9 - 15.1 g/dL [facility] Interpretation and review of laboratory results Abnormal [facility] Hematocrit (Bld) [Volume fraction] 24.9 % Low 36.3 - 47.1 % [facility] Hemoglobin (Bld) [Mass/Vol] 7.2 g/dL Low 11.9 - 15.1 g/dL [facility] Interpretation and review of laboratory results Abnormal [facility] Hemoglobin and hematocrit, b loodon 12-07-2022 Hematocrit (Bld) [Volume fraction] 20 % Low 36 - 46 % [facility] Hemoglobin (Bld) [Mass/Vol] 6.9 g/dL Critically low 12.0 - 16.0 g/dL [facility] Interpretation and review of laboratory results Abnormal [facility] Hematocrit (Bld) [Volume fraction] 30 % Low 36 - 46 % [facility] Hemoglobin (Bld) [Mass/Vol] 10.1 g/dL Low 12.0 - 16.0 g/dL [facility] Hgb/Hcton 12-07-2022 Hematocrit (Bld) [Volume fraction] 24.9 % Low 36.3-47.1 [facility] Comment on above: Performed By: #### R ZAINABEC, BMPX #### [facility] [address] [place], [place] [id number] Manufacturing Maintenance Technician: Luis Solis MD Hemoglobin (Bld) [Mass/Vol] 7.2 g/dL Low 11.9-15.1 [facility] Comment on above: Performed By: #### R EJEC, BMPX #### [facility] [address] [place], [place] [address] Manufacturing Maintenance Technician: Luis Solis MD No Panel Informationon 12-07 Interpretation and review of laboratory results Abnormal [facility] POC Glucose Fingerstickon Glucose [Mass/Vol] 197 mg/dL High 65 - 105 mg/dL [facility] Interpretation and review of laboratory results Abnormal [facility] Glucose [Mass/Vol] 101 mg/dL 65 - 105 mg/dL [facility] POCT Glucoseon 12-07-2022 Glucose [Mass/Vol] 83 mg/dL 74 - 100 mg/dL [facility] POCT urea (BUN)on 12-07-2022 Urea nitrogen [Mass/Vol] 25 mg/dL 8 - 26 mg/dL [facility] POTASSIUM (POC)on 12-07-2022 Potassium [Moles/Vol] 4.2 mmol/L 3.5 - 4.5 mmol/L [facility] SODIUM (POC)on 12-07-2022 Sodium [Moles/Vol] 142 mmol/L 138 - 146 mmol/L [facility] VL DUP LOWER EXTREMITY ARTER IES RIGHTon 12-07-2022 Darnell Monique MD - 12/07/2022 [facility] Vascular Lower Extremities Arterial Duplex Procedure Patient Name CHRISTA Date of Study 12/07/2022 [facility] Date of 1945 Gender Female Age 77 year(s) Race Room Number 0501 Height: 65 inch, 165.1 cm Corporate ID # [id number] Weight: 208 pounds, 94.3 kg Patient BSA: 2.01 m^2 BMI: 34.61 kg/m^2 MR # [id number] Packaging Tech Whit Gan RVT Interpreting Physician Darnell Monique [...] ! ! +---------++-----+----- +------+----+------++-- -+-----+------+----+--- ------ + [facility] Phone: Radiology Study observation (narrative) [facility] Phone: VL DUP LOWER EXTREMITY ARTER IES RIGHTOrdered By: Darnell Burk on 12-07-2022 [facility] Phone: CHLORIDE (POC)on 11-24-2022 Chloride [Moles/Vol] 105 mmol/L 98 - 107 mmol/L [facility] Creatinine W/GFR Point of Ca reon 11-24-2022 Creatinine [Mass/Vol] 1.5 mg/dL High 0.51 - 1.19 mg/dL [facility] eGFR, POC 36 mL/min/1.73m 2 [facility] Comment on above: Effective Aug [...] 26 % Low 36 - 46 % [facility] Hemoglobin (Bld) [Mass/Vol] 8.7 g/dL Low 12.0 - 16.0 g/dL [facility] No Panel Informationon 11-24 Interpretation and review of laboratory results Abnormal [facility] POCT Glucoseon 11-24-2022 Glucose [Mass/Vol] 135 mg/dL High 74 - 100 mg/dL [facility] POCT urea (BUN)on 11-24-2022 POC BUN Result not available. 8 - 26 mg/dL B ON [facility] POTASSIUM (POC)on 11-24-2022 Potassium [Moles/Vol] 5.3 mmol/L High 3.5 - 4.5 mmol/L [facility] Platelet Counton 11-24-2022 Platelets (Bld) [#/Vol] 314 10*3/uL Normal 138-453 [facility] Comment on above: Performed By: #### P LT #### [facility] [address] [place] [address] Manufacturing Maintenance Technician: Luis Solis MD Platelets (Bld) [#/Vol] 314 10*3/uL [facility] SODIUM (POC)on 11-24-2022 Sodium [Moles/Vol] 142 mmol/L 138 - 146 mmol/L [facility] Cult,Bloodon 10-03-2022 Cult,Blood Specimen Description .BLOOD Special Requests L AC 10ML Culture NO GROWTH 5 DAYS Report Status FINAL 10/03/2022 Normal [facility] Comment on above: Performed By: #### B C #### [address] [address] Manufacturing Maintenance Technician: Luis Solis MD Cult,Blood Specimen Description .BLOOD Special Requests R AC 10ML Culture NO GROWTH 5 DAYS Report Status FINAL 10/03/2022 Normal [facility] Comment on above: Performed By: #### H H, BMPX #### [address] [address] Manufacturing Maintenance Technician: Luis Solis MD Basic Metab w/rfx MGon 09-30 Anion gap [Moles/Vol] 9 mmol/L Normal - [facility] Comment on above: Performed By: #### H H, BMPX #### [address] [address] Manufacturing Maintenance Technician: Luis Solis MD Calcium [Mass/Vol] 8.8 mg/dL Normal 8.6-10.4 [facility] Comment on above: Performed By: #### H H, BMPX #### [facility] [address] [place] [address] Manufacturing Maintenance Technician: Luis Solis MD Chloride [Moles/Vol] 102 mmol/L Normal 98-107 [facility] Comment on above: Performed By: #### H H, BMPX #### [facility] [address] [place] [address] Manufacturing Maintenance Technician: Luis Solis MD CO2 [Moles/Vol] 28 mmol/L Normal 20-31 [facility] Comment on above: Performed By: #### H H, BMPX #### [facility] [address] [place] [address] Manufacturing Maintenance Technician: Luis Solis MD Creatinine [Mass/Vol] 1.28 mg/dL High 0.50-0.90 [facility] Comment on above: Performed By: #### H H, BMPX #### [facility] [address] [place] [address] Manufacturing Maintenance Technician: Luis Solis MD GFR/1.73 sq M.predicted among non-blacks MDRD (S/P/Bld) [Vol rate/Area] 43 mL/min/{1.73_m2} Low >60 [facility] Comment on above: Result Comment: Effective Aug [...] Performed By: #### H H, BMPX #### [facility] [address] [place] [address] Manufacturing Maintenance Technician: Luis Solis MD Glucose [Mass/Vol] 141 mg/dL High 70-99 [facility] Comment on above: Performed By: #### H H, BMPX #### [facility] [address] [place] [address] Manufacturing Maintenance Technician: Luis Solis MD Potassium [Moles/Vol] 4.0 mmol/L Normal 3.7-5.3 [facility] Comment on above: Performed By: #### H H, BMPX #### [facility] [address] [place] [address] Manufacturing Maintenance Technician: Luis Solis MD Sodium [Moles/Vol] 139 mmol/L Normal 135-144 [facility] Comment on above: Performed By: #### H H, BMPX #### [facility] [address] [place] [address] [phone] Manufacturing Maintenance Technician: Luis Solis MD Urea nitrogen [Mass/Vol] 18 mg/dL Normal 8-23 [facility] Comment on above: Performed By: #### H H, BMPX #### [facility] [address] [place] [address] [phone] Manufacturing Maintenance Technician: Luis Solis MD Cult,Urineon 09-30-2022 Cult,Urine Specimen Description .URINE,STRAIGHT CATHETER Culture ESCHERICHIA COLI >[id number] CFU/ML AEROCOCCUS URINAE 50 to 100,000 CFU/ML [...] Trimethoprim/Sulfa <=20 SUSCEPTIBLE Piperacillin/Tazobactam <=4 SUSCEPTIBLE Susceptible [facility] Comment on above: Performed By: #### H H, BMPX #### [facility] [address] [place] [address] [phone] Manufacturing Maintenance Technician: Luis Solis MD APTTon 09-29-2022 aPTT Coag (Bld) [Time] 30.4 s Normal 20.5-30.5 [facility] Comment on above: Result Comment: IV Heparin Therapy Range: 48.6-77.8 Performed By: #### H H, BMPX #### [facility] [id number] Manufacturing Maintenance Technician: Luis Solis MD Procalcitoninon 09-29-2022 Procalcitonin 0.23 ng/mL High <0.09 [facility] Comment on above: Result Comment: Suspected Sepsis: [...] entered into the Change in Procalcitonin Calculator (www.kpecyj-lam-lheqdeogkw[employer]) to determine the patient's Mortality Risk Prognosis In healthy neonates, plasma Procalcitonin (PCT) concentrations increase gradually after , reaching peak values at about 24 hours of age then decrease to normal values below 0.5 ng/mL by 48-72 hours of age. Performed By: #### R EJJESE, BMPX #### [facility] [address] [place], [place] [address] Manufacturing Maintenance Technician: Luis Solis MD APTTon 09-28-2022 aPTT Coag (Bld) [Time] 110.7 s Critically high 20.5-30.5 [facility] Comment on above: Result Comment: IV Heparin Therapy Range: 48.6-77.8 Performed By: #### P TT #### [facility] [address] [place], [place] [address] Manufacturing Maintenance Technician: Luis Solis MD aPTT Coag (Bld) [Time] 24.1 s Normal 20.5-30.5 [facility] Comment on above: Result Comment: IV Heparin Therapy Range: 48.6-77.8 Performed By: #### H H, BMPX #### [facility] [address] [place] [address] Manufacturing Maintenance Technician: Luis Solis MD aPTT Coag (Bld) [Time] 22.6 s Normal 20.5-30.5 [facility] Comment on above: Result Comment: IV Heparin Therapy Range: 48.6-77.8 Performed By: #### H H, BMPX #### [facility] [address] [place] [address] Manufacturing Maintenance Technician: Luis Solis MD Basic Metab w/rfx MGon 09-28 Anion gap [Moles/Vol] 10 mmol/L Normal 9-17 [facility] Comment on above: Performed By: #### R CHITO BMPX #### [address] [address] Manufacturing Maintenance Technician: Luis Solis MD Calcium [Mass/Vol] 7.6 mg/dL Low 8.6-10.4 [facility] Comment on above: Performed By: #### R CHITO BMPX #### [address] [address] Manufacturing Maintenance Technician: Luis Solis MD Chloride [Moles/Vol] 107 mmol/L Normal 98-107 [facility] Comment on above: Performed By: #### R CHITO, BMPX #### [facility] [address] [place] [address] Manufacturing Maintenance Technician: Luis Solis MD CO2 [Moles/Vol] 23 mmol/L Normal 20-31 [facility] Comment on above: Performed By: #### R ZAINABEC, BMPX #### [facility] [address] [place] [address] Manufacturing Maintenance Technician: Luis Solis MD Creatinine [Mass/Vol] 1.33 mg/dL High 0.50-0.90 [facility] Comment on above: Performed By: #### R CHITO, BMPX #### [facility] [address] [place] [address] Manufacturing Maintenance Technician: Luis Solis MD GFR/1.73 sq M.predicted among non-blacks MDRD (S/P/Bld) [Vol rate/Area] 41 mL/min/{1.73_m2} Low >60 [facility] Comment on above: Result Comment: Effective Aug [...] Performed By: #### R CHITO BMPX #### [facility] [address] [place] [address] Manufacturing Maintenance Technician: Luis Solis MD Glucose [Mass/Vol] 243 mg/dL High 70-99 [facility] Comment on above: Performed By: #### R CHITO BMPX #### [facility] [address] [place] [address] Manufacturing Maintenance Technician: Luis Solis MD Potassium [Moles/Vol] 4.5 mmol/L Normal 3.7-5.3 [facility] Comment on above: Performed By: #### R CHITO, BMPX #### [facility] [address] [place] [address] Manufacturing Maintenance Technician: Luis Solis MD Sodium [Moles/Vol] 140 mmol/L Normal 135-144 [facility] Comment on above: Performed By: #### R CHITO, BMPX #### [facility] [address] [place] [address] Manufacturing Maintenance Technician: Luis Solis MD Urea nitrogen [Mass/Vol] 21 mg/dL Normal 8-23 [facility] Comment on above: Performed By: #### R EJEC, BMPX #### [facility] [place] [address] Manufacturing Maintenance Technician: Luis Solis MD Brain Natri. Peptideon 09-28 Natriuretic peptide B (Bld) [Mass/Vol] 5275 pg/mL High <300 [facility] Comment on above: Result Comment: An age-independent cutoff point of 300 pg/ml has a 98% negative predictive value excluding acute heart failure. Performed By: #### H H, BMPX #### [facility] [address] [place] [address] Manufacturing Maintenance Technician: Luis Solis MD C-Reactive Proteinon CRP [Mass/Vol] 48.0 mg/L High 0.0-5.0 [facility] Comment on above: Performed By: #### R ZAINABEC, BMPX #### [facility] [address] [place] [address] Manufacturing Maintenance Technician: Luis Solis MD CBC with Diffon 09-28-2022 Abs. Basophil 0.06 k/uL Normal 0.00-0.20 [facility] Comment on above: Performed By: #### H H, BMPX #### [facility] [address] [place] [address] Manufacturing Maintenance Technician: Luis Solis MD Abs.Imm.Granulocyte 0.16 k/uL Normal 0.00-0.30 [facility] Comment on above: Performed By: #### H H, BMPX #### [facility] [place] [address] Manufacturing Maintenance Technician: Luis Solis MD Abs.Neutrophil (Seg) 10.78 k/uL High 1.50-8.10 [facility] Comment on above: Performed By: #### H H, BMPX #### [facility] [address] [place] [address] Manufacturing Maintenance Technician: Luis Solis MD Basophils/100 WBC (Bld) 1 % Normal 0-2 [facility] Comment on above: Performed By: #### H H, BMPX #### [address] [address] Manufacturing Maintenance Technician: Luis Solis MD Eosinophils (Bld) [#/Vol] 0.20 10*3/uL Normal 0.00-0.44 [facility] Comment on above: Performed By: #### H H, BMPX #### [facility] [address] [place] [address] Manufacturing Maintenance Technician: Luis Solis MD Eosinophils/100 WBC (Bld) 2 % Normal 1-4 [facility] Comment on above: Performed By: #### H H, BMPX #### [address] [address] Manufacturing Maintenance Technician: Luis Solis MD Erythrocyte distribution width (RBC) [Ratio] 16.7 % High 11.8-14.4 [facility] Comment on above: Performed By: #### H H, BMPX #### [address] [address] Manufacturing Maintenance Technician: Luis Solis MD Hematocrit (Bld) [Volume fraction] 27.2 % Low 36.3-47.1 [facility] Comment on above: Performed By: #### H H, BMPX #### [facility] [employer] [address] [place] [address] Manufacturing Maintenance Technician: Luis Solis MD Hemoglobin (Bld) [Mass/Vol] 8.1 g/dL Low 11.9-15.1 [facility] Comment on above: Performed By: #### H H, BMPX #### [facility] [employer] [address] [place] [address] Manufacturing Maintenance Technician: Luis Solis MD Immature granulocytes/100 WBC (Bld) 1 % High 0 [facility] Comment on above: Performed By: #### H H, BMPX #### [place] [address] Manufacturing Maintenance Technician: Luis Solis MD Lymphocytes (Bld) [#/Vol] 0.74 10*3/uL Low 1.10-3.70 [facility] Comment on above: Performed By: #### H H, BMPX #### [place] [address] Manufacturing Maintenance Technician: Luis Solis MD Lymphocytes/100 WBC (Bld) 6 % Low 24-43 [facility] Comment on above: Performed By: #### H H, BMPX #### [place] [address] Manufacturing Maintenance Technician: Luis Solis MD MCH (RBC) [Entitic mass] 26.9 pg Normal 25.2-33.5 [facility] Comment on above: Performed By: #### H H, BMPX #### [place] [address] Manufacturing Maintenance Technician: Luis Solis MD MCHC (RBC) [Mass/Vol] 29.8 g/dL Normal 28.4-34.8 [facility] Comment on above: Performed By: #### H H, BMPX #### [place] [address] Manufacturing Maintenance Technician: Luis Solis MD MCV (RBC) [Entitic vol] 90.4 fL Normal 82.6-102.9 [facility] Comment on above: Performed By: #### H H, BMPX #### [place] [address] Manufacturing Maintenance Technician: Luis Solis MD Monocytes (Bld) [#/Vol] 0.78 10*3/uL Normal 0.10-1.20 [facility] Comment on above: Performed By: #### H H, BMPX #### [address] [address] Manufacturing Maintenance Technician: Luis Solis MD Monocytes/100 WBC (Bld) 6 % Normal 3-12 [facility] Comment on above: Performed By: #### H H, BMPX #### [address] [address] Manufacturing Maintenance Technician: Luis Solis MD Neutrophil (Seg) 84 % High 36-65 [facility] Comment on above: Performed By: #### H H, BMPX #### [address] [address] Manufacturing Maintenance Technician: Luis Solis MD NRBC Automated 0.2 per 100 WBC High 0.0 [facility] Comment on above: Performed By: #### H H, BMPX #### [address] [address] Manufacturing Maintenance Technician: Luis Solis MD Platelet mean volume (Bld) [Entitic vol] 9.9 fL Normal 8.1-13.5 [facility] Comment on above: Performed By: #### H H, BMPX #### [address] [address] Manufacturing Maintenance Technician: Luis Solis MD Platelets (Bld) [#/Vol] 391 10*3/uL Normal 138-453 [facility] Comment on above: Performed By: #### H H, BMPX #### [address] [address] Manufacturing Maintenance Technician: Luis Solis MD RBC (Bld) [#/Vol] 3.01 10*6/uL Low 3.95-5.11 [facility] Comment on above: Performed By: #### H H, BMPX #### [address] [phone] Manufacturing Maintenance Technician: Luis Solis MD RBC morphology finding Nom (Bld) ANISOCYTOSIS PRESENT Normal [facility] Comment on above: Performed By: #### H H, BMPX #### [facility] [address] [place] [address] Manufacturing Maintenance Technician: Luis Solis MD WBC (Bld) [#/Vol] 12.7 10*3/uL High 3.5-11.3 [facility] Comment on above: Performed By: #### H H, BMPX #### [facility] [address] [place] [address] Manufacturing Maintenance Technician: Luis Solis MD CT CHEST PULMONARY EMBOLISM [...] Matthew Chong MD 09/28/22 Final result Normal [facility] Comp Metabolic Profon 2021 Albumin [Mass/Vol] 3.5 g/dL Normal 3.5-5.2 [facility] Comment on above: Performed By: #### H H, BMPX #### [facility] [address] [place], [place] [phone] Manufacturing Maintenance Technician: Luis Solis MD Albumin/Glob Ratio 0.9 Low 1.0-2.5 [facility] Comment on above: Performed By: #### H H, BMPX #### [facility] [address] [place] [address] Manufacturing Maintenance Technician: Luis Solis MD Alkaline Phos 104 U/L Normal 35-104 [facility] Comment on above: Performed By: #### H H, BMPX #### [address] [address] Manufacturing Maintenance Technician: Luis Solis MD ALT [Catalytic activity/Vol] 7 U/L Normal 5-33 [facility] Comment on above: Performed By: #### H H, BMPX #### [address] [address] Manufacturing Maintenance Technician: Luis Solis MD Anion gap [Moles/Vol] 13 mmol/L Normal 9-17 [facility] Comment on above: Performed By: #### H H, BMPX #### [address] [address] Manufacturing Maintenance Technician: Luis Solis MD AST [Catalytic activity/Vol] 15 U/L Normal <32 [facility] Comment on above: Performed By: #### H H, BMPX #### [address] [address] Manufacturing Maintenance Technician: Luis Solis MD Bilirubin [Mass/Vol] 0.5 mg/dL Normal 0.3-1.2 [facility] Comment on above: Performed By: #### H H, BMPX #### [address] [address] Manufacturing Maintenance Technician: Luis Solis MD Calcium [Mass/Vol] 8.5 mg/dL Low 8.6-10.4 [facility] Comment on above: Performed By: #### H H, BMPX #### [facility] [employer] [address] [place] [address] Manufacturing Maintenance Technician: Luis Solis MD Chloride [Moles/Vol] 102 mmol/L Normal 98-107 [facility] Comment on above: Performed By: #### H H, BMPX #### [address] [address] Manufacturing Maintenance Technician: Luis Solis MD CO2 [Moles/Vol] 24 mmol/L Normal 20-31 [facility] Comment on above: Performed By: #### H H, BMPX #### [facility] [address] [place] [address] Manufacturing Maintenance Technician: Luis Solis MD Creatinine [Mass/Vol] 1.62 mg/dL High 0.50-0.90 [facility] Comment on above: Performed By: #### H H, BMPX #### [address] [address] Manufacturing Maintenance Technician: Luis Solis MD GFR/1.73 sq M.predicted among non-blacks MDRD (S/P/Bld) [Vol rate/Area] 33 mL/min/{1.73_m2} Low >60 [facility] Comment on above: Result Comment: Effective Aug [...] Performed By: #### H H, BMPX #### [address] [address] Manufacturing Maintenance Technician: Luis Solis MD Glucose [Mass/Vol] 272 mg/dL High 70-99 [facility] Comment on above: Performed By: #### H H, BMPX #### [facility] [employer] [address] [place] [address] Manufacturing Maintenance Technician: Luis Solis MD Potassium [Moles/Vol] 4.4 mmol/L Normal 3.7-5.3 [facility] Comment on above: Performed By: #### H H, BMPX #### [facility] [employer] [address] [place] [address] Manufacturing Maintenance Technician: Luis Solis MD Protein [Mass/Vol] 7.3 g/dL Normal 6.4-8.3 [facility] Comment on above: Performed By: #### H H, BMPX #### [facility] [employer] [address] [place] [address] Manufacturing Maintenance Technician: Luis Solis MD Sodium [Moles/Vol] 139 mmol/L Normal 135-144 [facility] Comment on above: Performed By: #### H H, BMPX #### [facility] [employer] [address] [place] [address] Manufacturing Maintenance Technician: Luis Solis MD Urea nitrogen [Mass/Vol] 22 mg/dL Normal 8-23 [facility] Comment on above: Performed By: #### H H, BMPX #### [facility] [employer] [address] [place] [address] Manufacturing Maintenance Technician: Luis Solis MD Lactate, Sepsison 09-28-2022 Lactic Acid,Sep Wbld 0.6 mmol/L Normal 0.5-1.9 [facility] Comment on above: Performed By: #### R EJEC, BMPX #### [facility] [employer] [address] [place] [address] Manufacturing Maintenance Technician: Luis Solis MD Lactic Acid,Sep Wbld 1.5 mmol/L Normal 0.5-1.9 [facility] Comment on above: Performed By: #### H H, BMPX #### [facility] [employer] [address] [place] [address] Manufacturing Maintenance Technician: Luis Solis MD Legionella Ag, Uron 09-28-20 Legionella Ag, Ur Negative Normal NEG [facility] Comment on above: Result Comment: L. p neumophila serogroup 1 antigen not detected. A negative result does not exclude infection with Leginella pnemophila serogroup 1 nor does it rule out other microbial-caused respiratory infections of disease caused by other serogroups of Legionella pneumophila. Performed By: #### H H, BMPX #### [facility] [address] [place] [address] [phone] Manufacturing Maintenance Technician: Luis Solis MD PTon 09-28-2022 INR Coag (PPP) [Relative time] 1.1 {INR} Normal [facility] Comment on above: Result Comment: Therapeutic Range: Moderate Anticoagulant Intensity: INR = 2.0-3.0 High Anticoagulant Intensity: INR = 2.5-3.5 Performed By: #### H H, BMPX #### [facility] [address] [place] [address] Manufacturing Maintenance Technician: Luis Solis MD PT Coag (PPP) [Time] 11.8 s Normal 9.1-12.3 [facility] Comment on above: Performed By: #### H H, BMPX #### [facility] [employer] [address] [place] [address] [phone] Manufacturing Maintenance Technician: Luis Solis MD [id number] 09-28-2022 SARS-CoV-2 (COVID-19) RNA SIRI+probe Ql (Unsp spec) Not detected Normal NOTDET [facility] Comment on above: Result Comment: Rapid NAAT: [...] management decisions. Fact sheet for Healthcare Providers: https://www.fda.gov/media/884902/download Fact sheet for Patients: https://www.fda.gov/media/880121/download Methodology: Isothermal Nucleic Acid Amplification Performed By: #### R EJEC, BMPX #### [facility] [address] [place] [address] Manufacturing Maintenance Technician: Luis Solis MD Sedimentation Rateon 022 Sedimentation Rate 61 mm/Hr High 0-30 [facility] Comment on above: Performed By: #### R CHITO, BMPX #### [facility] [address] [place] [address] Manufacturing Maintenance Technician: Luis Solis MD Strep pneum Ag,CSF/Uron - Strep pneum Ag Negative Normal [facility] Comment on above: Result Comment: Stre p pneumoniae antigen not detected Performed By: #### R CHITO, BMPX #### [facility] [address] [place] [address] Manufacturing Maintenance Technician: Luis Solis MD Strep pneu Ag Source .URINE Normal [facility] Comment on above: Performed By: #### R CHITO, BMPX #### [facility] [address] [place] [address] Manufacturing Maintenance Technician: Luis Solis MD Troponinon 09-28-2022 Troponin, High Sens 222 ng/L Critically high 0-14 [facility] Comment on above: Result Comment: High Sensitivity Troponin values cannot be compared with other Troponin methodologies. Patients with high levels of Biotin oral intake (i.e >5mg/day) may have falsely decreased Troponin levels. Samples collected within 8 hours of biotin intake may require additional information for diagnosis. Performed By: #### R ZAINABEC, BMPX #### [facility] [address] [place] [address] Manufacturing Maintenance Technician: Luis Solis MD Troponin, High Sens 219 ng/L Critically high 0-14 [facility] Comment on above: Result Comment: High Sensitivity Troponin values cannot be compared with other Troponin methodologies. Patients with high levels of Biotin oral intake (i.e >5mg/day) may have falsely decreased Troponin levels. Samples collected within 8 hours of biotin intake may require additional information for diagnosis. Performed By: #### H H, BMPX #### [facility] [employer] [address] [place] [address] Manufacturing Maintenance Technician: Luis Solis MD Type + Screenon 09-28-2022 Type + Screen Sample Expiration 10/01/2022,2359 Arm Band Number [id number] ABO/Rh(D) O NEGATIVE Antibody Screen NEGATIVE Normal [facility] Comment on above: Performed By: #### H H, BMPX #### [facility] [employer] [address] [place] [address] Manufacturing Maintenance Technician: Luis Solis MD Urinalysis w/ Microon 2021 Bacteria MANY Abnormal NONE [facility] Comment on above: Performed By: #### H H, BMPX #### [facility] [employer] [address] [place] [address] Manufacturing Maintenance Technician: Luis Solis MD Bilirubin, SemiQt,Ur Negative Normal NEG [facility] Comment on above: Performed By: #### H H, BMPX #### [facility] [employer] [address] [place] [address] Manufacturing Maintenance Technician: Luis Solis MD Blood, Urine Negative Normal NEG [facility] Comment on above: Performed By: #### H H, BMPX #### [facility] [employer] [address] [place] [address] Manufacturing Maintenance Technician: Luis Solis MD Casts 0 TO 2 HYALINE Normal 0-8 [facility] Comment on above: Result Comment: Refe rence range defined for non-centrifuged specimen. Performed By: #### H H, BMPX #### [facility] [employer] [address] [place] [address] Manufacturing Maintenance Technician: Luis Solis MD Clarity (U) Cloudy Abnormal CLEAR [facility] Comment on above: Performed By: #### H H, BMPX #### [facility] [address] [place] [address] Manufacturing Maintenance Technician: Luis Solis MD Color (U) Yellow Normal YEL [facility] Comment on above: Performed By: #### H H, BMPX #### [facility] [employer] [address] [place] [address] Manufacturing Maintenance Technician: Luis Solis MD Epithelial cells LM Ql (Urine sed) 5 TO 10 Normal 0-5 [facility] Comment on above: Performed By: #### H H, BMPX #### [facility] [address] [place] [address] Manufacturing Maintenance Technician: Luis Solis MD Glucose Ql (U) 2+ Abnormal NEG [facility] Comment on above: Performed By: #### H H, BMPX #### [facility] [employer] [address] [place] [address] Manufacturing Maintenance Technician: Luis Solis MD Ketones Ql (U) TRACE Abnormal NEG [facility] Comment on above: Performed By: #### H H, BMPX #### [facility] [employer] [address] [place] [address] Manufacturing Maintenance Technician: Luis Solis MD Leukocyte esterase Test strip Ql (U) TRACE Abnormal NEG [facility] Comment on above: Performed By: #### H H, BMPX #### [address] [address] Manufacturing Maintenance Technician: Luis Solis MD Nitrite,Ur Negative Normal NEG [facility] Comment on above: Performed By: #### H H, BMPX #### [facility] [employer] [address] [place] [address] Manufacturing Maintenance Technician: Luis Solis MD PH,Ur 5.5 Normal 5.0-8.0 [facility] Comment on above: Performed By: #### H H, BMPX #### [facility] [employer] [address] [place] [address] Manufacturing Maintenance Technician: Luis Solis MD Protein Ql (U) TRACE Abnormal NEG [facility] Comment on above: Performed By: #### H H, BMPX #### [address] [address] Manufacturing Maintenance Technician: Luis Solis MD Spec. [place],Ur 1.018 Normal 1.005-1.030 [facility] Comment on above: Performed By: #### H H, BMPX #### [address] [address] Manufacturing Maintenance Technician: Luis Solis MD Urine RBC's 0 TO 2 Normal 0-4 [facility] Comment on above: Result Comment: Refe rence range defined for non-centrifuged specimen. Performed By: #### H H, BMPX #### [address] [address] Manufacturing Maintenance Technician: Luis Solis MD Urine WBC's 10 TO 20 Normal 0-5 [facility] Comment on above: Performed By: #### H H, BMPX #### [address] [address] Manufacturing Maintenance Technician: Luis Solis MD Urobilinogen,Ur Normal Normal NORM [facility] Comment on above: Performed By: #### H H, BMPX #### [address] [address] Manufacturing Maintenance Technician: Luis Solis MD XR CHEST PORTABLEon 09-28-20 [...] Garth Herr MD 09/28/22 Final result Normal [facility] CT BRAIN WO CONTRASTon 03-31 CT BRAIN WO CONTRAST [facility] Department of Radiology [address] [place] [address] ===== Patient Name: CUCA GOODWIN : 1945 Sex: F Age: Race: White Pt. 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 Electronically signed: Mari Chavez. Transcribed by: [email or web address], User Resident: Electronically Signed by: MARI CHAVEZ @ 03/31/2022 03:46 PM Normal [facility] Comment on above: Order Comment: hydro cephalus s/p svp digital sales food & cooking shunt CLAIM REVIEW MEDICAL DIRECTOR SHUNT SERIESon 03-31-2022 CLAIM REVIEW MEDICAL DIRECTOR SHUNT SERIES [facility] Department of Radiology [address] [place] [id number] ===== Patient Name: CUCA GOODWIN : [...] , Ordering Provider - A NIELS RAWLS CAISSON WORKER , Exam: CLAIM REVIEW MEDICAL DIRECTOR SHUNT SERIES ===== CLAIM REVIEW MEDICAL DIRECTOR SHUNT SERIES HISTORY: Shunt evaluation. COMPARISON: 09/17/2020. [...] described. Electronically signed: Lam Chew. Transcribed by: [email or web address], User Resident: Electronically Signed by: LAM CHEW @ 04/03/2022 08:50 AM Normal [facility] Comment on above: Order Comment: , .br E.brEr/o kinking or discontinuity of shunt tubing and do image perpendicularl to valve to check OP , .brr/o kinking or discontinuity of shunt tubing and do image perpendicularl to valve to check OP , , , Ordering Provider - A NIELS RAWLS CAISSON WORKER , Lipid Profileon 03-26-2021 Cholesterol [Mass/Vol] 117 mg/dL Normal <200 [facility] Comment on above: Result Comment: Cholesterol Guidelines: <200 Desirable 200-240 Borderline >240 Undesirable Performed By: #### L IPR #### [facility] [address] [place], [place] [id number] Manufacturing Maintenance Technician: Luis Solis MD Cholesterol in HDL [Mass/Vol] 39 mg/dL Low >40 [facility] Comment on above: Result Comment: HDL Guidelines: <40 Undesirable 40-59 Borderline >59 Desirable Performed By: #### L IPR #### [facility] [address] [place], [place] [phone] Manufacturing Maintenance Technician: Luis Solis MD Cholesterol in LDL [Mass/Vol] 62 mg/dL Normal 0-130 [facility] Comment on above: Result Comment: LDL Guidelines: <100 Desirable 100-129 Near to/above Desirable 130-159 Borderline >159 Undesirable Direct (measured) LDL and calculated LDL are not interchangeable tests. Performed By: #### L IPR #### [facility] [address] [place] [address] Manufacturing Maintenance Technician: Luis Solis MD Cholesterol.total/C holesterol in HDL [Mass ratio] 3.0 {ratio} Normal <5 [facility] Comment on above: Performed By: #### L IPR #### [address] [place] [address] Manufacturing Maintenance Technician: Luis Solis MD Triglyceride [Mass/Vol] 79 mg/dL Normal <150 [facility] Comment on above: Result Comment: Triglyceride Guidelines: <150 Desirable 150-199 Borderline 200-499 High >499 Very high Based on AHA Guidelines for fasting triglyceride, August 2012. Performed By: #### L IPR #### [address] [address] Manufacturing Maintenance Technician: Luis Solis MD Cholesterol,VLDL NOT REPORTED Normal 12-14 [facility] Comment on above: Performed By: #### L IPR #### [address] [address] Manufacturing Maintenance Technician: Luis Solis MD Uric Acidon 03-24-2021 Urate [Mass/Vol] 6.8 mg/dL High 2.4-5.7 [facility] Comment on above: Performed By: #### U RI #### [facility] [address] [place] [address] Manufacturing Maintenance Technician: Giovanny Carpenter MD Uric AcidOrdered By: Lakeshia Henriquez on 03-24-2021 Interpretation and review of laboratory results Abnormal [facility] Phone: Urate [Mass/Vol] 6.8 mg/dL High 2.4 - 5.7 mg/dL [facility] Phone: CBC AUTO DIFFon 03-20-2021 BASO # 0.0 103/ul Normal 0.0-0.1 [facility] Comment on above: Performed By: #### C BC #### [facility] [address] [place], [place] [address] Ghulam Amy Basophils/100 WBC (Bld) 0.4 % Normal 0.2-2.0 [facility] Comment on above: Performed By: #### C BC #### [facility] [address] [place] [id number] Ghulam Amy EO # 0.4 103/ul Normal 0.0-0.7 [facility] Comment on above: Performed By: #### C BC #### [facility] [address] [place] [phone] Ghulam Amy Eosinophils/100 WBC (Bld) 4.3 % Normal 0.9-7.0 [facility] Comment on above: Performed By: #### C BC #### [facility] [address] [place], [place] [phone] Ghulam Amy Erythrocyte distribution width (RBC) [Ratio] 15.9 % Critically high 11.0-15.0 [facility] Comment on above: Performed By: #### C BC #### [facility] [address] [place], [place] [phone] Ghulam Amy Hematocrit (Bld) [Volume fraction] 28.5 % Critically low 36.0-48.0 [facility] Comment on above: Performed By: #### C BC #### [facility] [address] [place], [place] [phone] Ghulam Amy Hemoglobin (Bld) [Mass/Vol] 8.9 g/dL Critically low 12.0-16.0 [facility] Comment on above: Performed By: #### C BC #### [facility] [address] [place] [id number] Ghulam Amy IG # 0.04 10e3/ul Critically high 0.00-0.03 [facility] Comment on above: Performed By: #### C BC #### [facility] [address] [place] [phone] Ghulam Amy IG % 0.4 % Normal 0.0-0.5 [facility] Comment on above: Performed By: #### C BC #### [facility] [address] [place], [place] [address] Ghulam Amy LYMPH # 2.2 103/ul Normal 1.2-3.8 [facility] Comment on above: Performed By: #### C BC #### [facility] [address] [place], [place] [address] Ghulam Amy Lymphocytes/100 WBC (Bld) 21.9 % Normal 20.5-60.0 [facility] Comment on above: Performed By: #### C BC #### [facility] [address] [place] [address] Ghulam Amy MANUAL DIFF REQ NO Normal [facility] Comment on above: Performed By: #### C BC #### [facility] [address] [place], [place] [phone] Ghulam Amy MCH (RBC) [Entitic mass] 27.1 pg Normal 26.7-34.0 [facility] Comment on above: Performed By: #### C BC #### [facility] [address] [place], [place] [phone] Ghulam Amy MCHC (RBC) [Mass/Vol] 31.2 g/dL Normal 29.9-35.2 [facility] Comment on above: Performed By: #### C BC #### [facility] [address] [place], [place] [phone] Ghulam Amy MCV (RBC) [Entitic vol] 86.9 fL Normal 81.0-99.0 [facility] Comment on above: Performed By: #### C BC #### [facility] [address] [place], [place] [id number] Ghulam Amy MONO # 1.0 103/ul Critically high 0.3-0.8 [facility] Comment on above: Performed By: #### C BC #### [facility] [address] [place], [place] [id number] Ghulam Amy Monocytes/100 WBC (Bld) 10.1 % Normal 1.7-12.0 [facility] Comment on above: Performed By: #### C BC #### [facility] [address] [id number] Ghulam Reyes NEUT # 6.2 103/ul Normal 1.4-6.5 [facility] Comment on above: Performed By: #### C BC #### [facility] [address] [id number] Ghulam Reyes Neutrophils/100 WBC (Bld) 62.9 % Normal 43.0-75.0 [facility] Comment on above: Performed By: #### C BC #### [facility] [address] [place], [place] [id number] Ghulam Reyes Platelet mean volume (Bld) [Entitic vol] 10.2 fL Normal 9.5-13.5 [facility] Comment on above: Performed By: #### C BC #### [facility] [address] [place], [place] [address] Ghulam Reyes PLT 289 103/ul Normal 150-450 [facility] Comment on above: Performed By: #### C BC #### [facility] [address] [place], [place] [address] Ghulam Reyes RBC 3.28 106/ul Critically low 4.20-5.40 [facility] Comment on above: Performed By: #### C BC #### [facility] [address] [place], [place] [id number] Ghulam Reyes WBC 9.9 103/ul Normal 4.0-11.0 [facility] Comment on above: Performed By: #### C BC #### [facility] [address] [place], [place] [id number] Ghulam Sotoen PROF 14(COMP METB)on 021 Albumin [Mass/Vol] 2.8 g/dL Critically low 3.5-5.0 [facility] Comment on above: Performed By: #### C MP #### [facility] [address] [place], [place] [id number] Ghulam Reyes Albumin/Globulin [Mass ratio] 0.6 {ratio} Normal [facility] Comment on above: Performed By: #### C MP #### [facility] [address] [place], [place] [address] Ghulam Amy ALP [Catalytic activity/Vol] 95 U/L Normal 38-126 [facility] Comment on above: Performed By: #### C MP #### [facility] [address] [place] [address] Ghulam Amy ALT [Catalytic activity/Vol] 16 U/L Normal 9-52 [facility] Comment on above: Performed By: #### C MP #### [facility] [address] [place] [address] Ghulam Amy Anion gap [Moles/Vol] 11.6 mmol/L Normal [facility] Comment on above: Performed By: #### C MP #### [facility] [address] [place] [address] Ghulam Amy AST [Catalytic activity/Vol] 13 U/L Critically low 14-36 [facility] Comment on above: Performed By: #### C MP #### [facility] [address] [place] [address] Ghulam Amy Bilirubin [Mass/Vol] 0.4 mg/dL Normal 0.2-1.3 [facility] Comment on above: Performed By: #### C MP #### [facility] [address] [place] [address] Ghulam Amy Calcium [Mass/Vol] 8.9 mg/dL Normal 8.4-10.2 [facility] Comment on above: Performed By: #### C MP #### [facility] [address] [place] [address] Ghulam Amy Chloride [Moles/Vol] 103 mmol/L Normal 98-107 [facility] Comment on above: Performed By: #### C MP #### [facility] [address] [place], [place] [address] Ghulam Amy CO2 [Moles/Vol] 27.4 mmol/L Normal 22.0-30.0 [facility] Comment on above: Performed By: #### C MP #### [facility] [address] [place], [place] [address] Ghulam Amy Creatinine [Mass/Vol] 1.86 mg/dL Critically high 0.52-1.04 [facility] Comment on above: Performed By: #### C MP #### [facility] [address], [place] [address] Ghulam Amy EGFR-AF GREEK 32 mL/min/1.73m2 Critically low >=60 [facility] Comment on above: Performed By: #### C MP #### [facility] [address], [place] [address] Ghulam Amy EGFR-NON AF GREEK 26 mL/min/1.73m2 Critically low >=60 [facility] Comment on above: Performed By: #### C MP #### [facility] [address], [place] [address] Ghulam Amy Globulin (S) [Mass/Vol] 4.6 g/dL Normal [facility] Comment on above: Performed By: #### C MP #### [facility] [address] [id number] Ghulam Amy Glucose [Mass/Vol] 174 mg/dL Critically high 74-106 [facility] Comment on above: Performed By: #### C MP #### [facility] [address] [id number] Ghulam Amy Potassium [Moles/Vol] 4.0 mmol/L Normal 3.4-5.0 [facility] Comment on above: Performed By: #### C MP #### [facility] [address] [address] Ghulam Amy Protein [Mass/Vol] 7.4 g/dL Normal 6.1-8.2 [facility] Comment on above: Performed By: #### C MP #### [facility] [address] [id number] Ghulam Amy Sodium [Moles/Vol] 138 mmol/L Normal 137-145 [facility] Comment on above: Performed By: #### C MP #### [facility] [address] [place], [place] [address] Ghulam Amy Urea nitrogen [Mass/Vol] 24.0 mg/dL Critically high 7.0-17.0 [facility] Comment on above: Performed By: #### C MP #### [facility] [address] [place] [address] Ghulam Amy Urea nitrogen/Creatinine [Mass ratio] 12.9 mg/mg Normal [facility] Comment on above: Performed By: #### C MP #### [facility] [address] [place] [address] Ghulam Amy RESPIRATORY PANEL PLUSon Adenovirus Not detected Normal NOT DETECTED [facility] Comment on above: Performed By: #### R SPLUS #### [facility] [address] [place] [address] Ghulam Amy B. Parapertusis Not detected Normal NOT DETECTED [facility] Comment on above: Performed By: #### R SPLUS #### [facility] [address] [place] [address] Ghulam Amy B. Pertussis Not detected Normal NOT DETECTED [facility] Comment on above: Performed By: #### R SPLUS #### [facility] [address] [place] [address] Ghulam Amy Chlamydia Pneumoniae Not detected Normal NOT DETECTED [facility] Comment on above: Performed By: #### R SPLUS #### [facility] [address] [place] [address] Ghulam Amy Coronavirus 229E Not detected Normal NOT DETECTED [facility] Comment on above: Performed By: #### R SPLUS #### [facility] [address] [place] [address] Ghulam Amy Coronavirus HKU1 Not detected Normal NOT DETECTED [facility] Comment on above: Performed By: #### R SPLUS #### [facility] [address] [place] [address] Ghulam Amy Coronavirus NL63 Not detected Normal NOT DETECTED [facility] Comment on above: Performed By: #### R SPLUS #### [facility] [address] [place] [address] Ghulam Amy Coronavirus OC43 Not detected Normal NOT DETECTED [facility] Comment on above: Performed By: #### R SPLUS #### [facility] [address] [place], [place] [address] Ghulam Amy Influenza A H1 2009 Not detected Normal NOT DETECTED [facility] Comment on above: Performed By: #### R SPLUS #### [facility] [address] [place] [address] Ghulam Amy Influenza B Not detected Normal NOT DETECTED [facility] Comment on above: Performed By: #### R SPLUS #### [facility] [address] [place] [address] Ghulam Amy Metapneumovirus Not detected Normal NOT DETECTED [facility] Comment on above: Performed By: #### R SPLUS #### [facility] [address] [place] [address] Ghulam Amy Mycoplas. Pneumoniae Not detected Normal NOT DETECTED [facility] Comment on above: Performed By: #### R SPLUS #### [facility] [address] [place] [address] Ghulam Amy Parainfluenza 1 Not detected Normal NOT DETECTED [facility] Comment on above: Performed By: #### R SPLUS #### [facility] [address] [place] [address] Ghulam Amy Parainfluenza 2 Not detected Normal NOT DETECTED [facility] Comment on above: Performed By: #### R SPLUS #### [facility] [address] [place] [address] Ghulam Amy Parainfluenza 3 Not detected Normal NOT DETECTED [facility] Comment on above: Performed By: #### R SPLUS #### [facility] [address] [place] [address] Ghulam Amy Parainfluenza 4 Not detected Normal NOT DETECTED [facility] Comment on above: Performed By: #### R SPLUS #### [facility] [address] [place] [address] Ghulam Amy Rhino/Enterovirus Not detected Normal NOT DETECTED [facility] Comment on above: Performed By: #### R SPLUS #### [facility] [address] [place] [address] Ghulam Reyes RP2 Header 1 RESPIRATORY PANEL: VIRUSES Normal [facility] Comment on above: Performed By: #### R SPLUS #### [facility] [address] [place] [address] Ghulam Reyes RP2 Header 2 RESPIRATORY PANEL: BACTERIA Normal [facility] Comment on above: Performed By: #### R SPLUS #### [facility] [address] [place] [address] Ghulam Reyes RP2 Header 4 EUA SEE BELOW Normal [facility] Comment on above: Result Comment: This test is not yet approved or cleared by the [place] FDA. When there are no FDA-approved or cleared tests available, and other criteria are met, FDA can make tests available under an emergency access mechanism called an Emergency Use Authorization (EUA). The EUA for this test is supported by the Actuarial Associate of Health and Human Service?s (HHS?s) declaration [...] used). Performed By: #### R SPLUS #### [facility] [address] [place] [address] [facility] RSV Not detected Normal NOT DETECTED [facility] Comment on above: Performed By: #### R SPLUS #### [facility] [address] [place] [address] [facility] SARS-CoV-2 (COVID-19) RNA SIRI+probe Ql (Unsp spec) Not detected Normal NOT DETECTED [facility] Comment on above: Performed By: #### R SPLUS #### [facility] [address] [place] [address] Ghulam Amy URIC ACID SERUMon 03-20-2021 Urate [Mass/Vol] 7.4 mg/dL Critically high 2.5-6.2 [facility] Comment on above: Performed By: #### U GIRISH #### [facility] [address] [place] [address] Ghulam Amy CBC AUTO DIFFon 03-19-2021 BASO # 0.0 103/ul Normal 0.0-0.1 [facility] Comment on above: Performed By: #### C BC #### [facility] [address] [id number] Ghulam Amy Basophils/100 WBC (Bld) 0.3 % Normal 0.2-2.0 [facility] Comment on above: Performed By: #### C BC #### [facility] [address] [id number] Ghulam Amy EO # 0.1 103/ul Normal 0.0-0.7 [facility] Comment on above: Performed By: #### C BC #### [facility] [address] [address] Ghulam Amy Eosinophils/100 WBC (Bld) 0.9 % Normal 0.9-7.0 [facility] Comment on above: Performed By: #### C BC #### [facility] [address] [address] Ghulam Amy Erythrocyte distribution width (RBC) [Ratio] 15.5 % Critically high 11.0-15.0 [facility] Comment on above: Performed By: #### C BC #### [facility] [address] [id number] Ghulam Amy Hematocrit (Bld) [Volume fraction] 28.1 % Critically low 36.0-48.0 [facility] Comment on above: Performed By: #### C BC #### [facility] [address] [id number] Ghulam Amy Hemoglobin (Bld) [Mass/Vol] 8.9 g/dL Critically low 12.0-16.0 [facility] Comment on above: Performed By: #### C BC #### [facility] [address] [address] Ghulam Amy IG # 0.05 10e3/ul Critically high 0.00-0.03 [facility] Comment on above: Performed By: #### C BC #### [facility] [address] [place] [address] Ghulam Amy IG % 0.5 % Normal 0.0-0.5 [facility] Comment on above: Performed By: #### C BC #### [facility] [address] [place], [place] [address] Ghulamgabriela Sotoen LYMPH # 1.9 103/ul Normal 1.2-3.8 [facility] Comment on above: Performed By: #### C BC #### [facility] [address] [place] [address] Ghulamgabriela Reyes Lymphocytes/100 WBC (Bld) 17.2 % Critically low 20.5-60.0 [facility] Comment on above: Performed By: #### C BC #### [facility] [address] [place] [address] Ghulam Reyes MANUAL DIFF REQ NO Normal [facility] Comment on above: Performed By: #### C BC #### [facility] [address] [place] [address] Ghulamgabriela Sotoen MCH (RBC) [Entitic mass] 27.1 pg Normal 26.7-34.0 [facility] Comment on above: Performed By: #### C BC #### [facility] [address] [place], [place] [address] Ghulamgabriela Reyes MCHC (RBC) [Mass/Vol] 31.7 g/dL Normal 29.9-35.2 [facility] Comment on above: Performed By: #### C BC #### [facility] [address] [place] [address] Ghulamgabriela Reyes MCV (RBC) [Entitic vol] 85.4 fL Normal 81.0-99.0 [facility] Comment on above: Performed By: #### C BC #### [facility] [address] [place], [place] [address] Ghulam Amy MONO # 1.0 103/ul Critically high 0.3-0.8 [facility] Comment on above: Performed By: #### C BC #### [facility] [address] [place], [place] [address] Ghulam Amy Monocytes/100 WBC (Bld) 9.5 % Normal 1.7-12.0 [facility] Comment on above: Performed By: #### C BC #### [facility] [address] [address] Ghulam Reyes NEUT # 7.7 103/ul Critically high 1.4-6.5 [facility] Comment on above: Performed By: #### C BC #### [facility] [address] [id number] Ghulam Reyes Neutrophils/100 WBC (Bld) 71.6 % Normal 43.0-75.0 [facility] Comment on above: Performed By: #### C BC #### [facility] [address] [address] Ghulam Reyes Platelet mean volume (Bld) [Entitic vol] 10.1 fL Normal 9.5-13.5 [facility] Comment on above: Performed By: #### C BC #### [facility] [address] [address] Ghulam Reyes PLT 285 103/ul Normal 150-450 [facility] Comment on above: Performed By: #### C BC #### [facility] [address] [address] Ghulam Reyes RBC 3.29 106/ul Critically low 4.20-5.40 [facility] Comment on above: Performed By: #### C BC #### [facility] [address] [id number] Ghulam Reyes WBC 10.7 103/ul Normal 4.0-11.0 [facility] Comment on above: Performed By: #### C BC #### [facility] [address] [address] Ghulam Reyes MAGNESIUMon 03-19-2021 Magnesium [Mass/Vol] 1.9 mg/dL Normal 1.6-2.3 [facility] Comment on above: Performed By: #### M G ####[facility] [id number] [id number] Reyes POINT OF CARE GLUCOSEon Glucose [Mass/Vol] 68 mg/dL Critically low 74-106 Th [facility] Comment on above: Performed By: #### P OCGLUC #### [facility] [address] [place], [place] [address] Ghulam Amy Glucose [Mass/Vol] 91 mg/dL Normal 74-106 [facility] Comment on above: Performed By: #### P OCGLUC #### [facility] [address] [address] Ghulam Amy Glucose [Mass/Vol] 136 mg/dL Critically high 74-106 [facility] Comment on above: Performed By: #### P OCGLUC #### [facility] [address] [place], [place] [address] Ghulam Amy PROF 14(COMP METB)on 021 Albumin [Mass/Vol] 2.7 g/dL Critically low 3.5-5.0 [facility] Comment on above: Performed By: #### C MP #### [facility] [address] [place], [place] [address] Ghulam Amy Albumin/Globulin [Mass ratio] 0.6 {ratio} Normal [facility] Comment on above: Performed By: #### C MP #### [facility] [address] [place], [place] [address] Ghulam Amy ALP [Catalytic activity/Vol] 99 U/L Normal 38-126 [facility] Comment on above: Performed By: #### C MP #### [facility] [address] [place], [place] [address] Ghulam Amy ALT [Catalytic activity/Vol] 14 U/L Normal 9-52 [facility] Comment on above: Performed By: #### C MP #### [facility] [address] [place], [place] [address] Ghulam Amy Anion gap [Moles/Vol] 10.5 mmol/L Normal [facility] Comment on above: Performed By: #### C MP #### [facility] [address] [place], [place] [address] Ghulam Amy AST [Catalytic activity/Vol] 13 U/L Critically low 14-36 [facility] Comment on above: Performed By: #### C MP #### [facility] [address] [place], [place] [address] Ghulam Amy Bilirubin [Mass/Vol] 0.5 mg/dL Normal 0.2-1.3 [facility] Comment on above: Performed By: #### C MP #### [facility] [address] [place], [place] [address] Ghulam Amy Calcium [Mass/Vol] 9.1 mg/dL Normal 8.4-10.2 [facility] Comment on above: Performed By: #### C MP #### [facility] [address], [place] [address] Ghulam Amy Chloride [Moles/Vol] 104 mmol/L Normal 98-107 [facility] Comment on above: Performed By: #### C MP #### [facility] [address] [address] Ghulam Amy CO2 [Moles/Vol] 27.2 mmol/L Normal 22.0-30.0 [facility] Comment on above: Performed By: #### C MP #### [facility] [address] [id number] Ghulam Amy Creatinine [Mass/Vol] 1.57 mg/dL Critically high 0.52-1.04 [facility] Comment on above: Performed By: #### C MP #### [facility] [address] [address] Ghulam Amy EGFR-AF GREEK 39 mL/min/1.73m2 Critically low >=60 [facility] Comment on above: Performed By: #### C MP #### [facility] [address], [place] [address] Ghulam Amy EGFR-NON AF GREEK 32 mL/min/1.73m2 Critically low >=60 [facility] Comment on above: Performed By: #### C MP #### [facility] [address], [place] [address] Ghulam Amy Globulin (S) [Mass/Vol] 4.6 g/dL Normal [facility] Comment on above: Performed By: #### C MP #### [facility] [address], [place] [address] Ghulam Amy Glucose [Mass/Vol] 209 mg/dL Critically high 74-[address] [facility] Comment on above: Performed By: #### C MP #### [facility] [address], [place] [address] Ghulam Amy Potassium [Moles/Vol] 3.7 mmol/L Normal 3.4-5.0 [facility] Comment on above: Performed By: #### C MP #### [facility] [address], [place] [address] Ghulam Amy Protein [Mass/Vol] 7.3 g/dL Normal 6.1-8.2 [facility] Comment on above: Performed By: #### C MP #### [facility] [address] [address] Ghulam Amy Sodium [Moles/Vol] 138 mmol/L Normal 137-145 [facility] Comment on above: Performed By: #### C MP #### [facility] [address] [address] Ghulam Amy Urea nitrogen [Mass/Vol] 28.0 mg/dL Critically high 7.0-17.0 [facility] Comment on above: Performed By: #### C MP #### [facility] [address], [place] [address] Ghulam Amy Urea nitrogen/Creatinine [Mass ratio] 17.8 mg/mg Normal [facility] Comment on above: Performed By: #### C MP #### [facility] [address] [place], [place] [address] Ghulam Amy Vital Signs Date Time Vital Sign Value Performing Clinician Facility 08-28-2024 08:150 Body height 165.1 cm Pam RICHEY Work Phone: [facility] 08-28-2024 08:150400 Body mass index (BMI) [Ratio] 34.35 kg/m2 Pam RICHEY Work Phone: [facility] 08-28-2024 08:15-0400 Body temperature 97.5 [degF] Pam Ley APRN-[employer]ISSON WORKER Work Phone: [facility] [place] [facility] 9+ [facility] 08-28-2024 08:15-0400 Body weight 93.62 kg Pam Ley APRN-[employer] WORKER Work Phone: [facility] 08-28-2024 08:15-0400 Diastolic blood pressure 60 mm[Hg] Pam Ley APRN-[employer] WORKER Work Phone: [facility] 08-28-2024 08:15-0400 Heart rate 74 /min Pam Ley APRN-[employer] WORKER Work Phone: [facility] 08-28-2024 08:15-0400 Respiratory rate 18 /min Pam Ley APRN-[employer] WORKER Work Phone: [facility] 08-28-2024 08:15-0400 SaO2% (BldA) [Mass fraction] 90 % Pam Ley APRN-BARTOLO Work Phone: [facility] 08-28-2024 08:15-0400 Systolic blood pressure 120 mm[Hg] Pam Ley APRN-[employer] WORKER Work Phone: [facility] 02-09-2024 13:00-0400 Body height 165.1 cm Pam Ley APRN-[employer] WORKER Work Phone: [facility] 02-09-2024 13:00-0400 Body mass index (BMI) [Ratio] 33.35 kg/m2 Pam Ley APRN-[employer] WORKER Work Phone: [facility] 02-09-2024 13:00-0400 Body temperature 98.2 [degF] Pam Ley APRN-[employer]IS[employer] WORKER Work Phone: [facility] 02-09-2024 13:00-0400 Body weight 90.9 kg Pam Ley APRN-[employer] WORKER Work Phone: [facility] 02-09-2024 13:00-0400 Diastolic blood pressure 72 mm[Hg] Pam Ley APRN-[employer]IS[employer] WORKER Work Phone: [facility] 02-09-2024 13:00-0400 Heart rate 79 /min Pam Ley APRN-[employer] WORKER Work Phone: [facility] 02-09-2024 13:00-0400 Respiratory rate 20 /min Pam Ley APRN-[employer] WORKER Work Phone: [facility] 02-09-2024 13:00-0400 SaO2% (BldA) [Mass fraction] 97 % Pam Ley APRN-BARTOLO Work Phone: [facility] 02-09-2024 13:00-0400 Systolic blood pressure 134 mm[Hg] Pam Ley APRN-BARTOLO Work Phone: [facility] 12-15-2023 14:51-0500 Body height 165.1 cm Pam Ley APRN-[employer]IS[employer] WORKER Work Phone: [facility] 12-15-2023 14:51-0500 Body mass index (BMI) [Ratio] 31.02 kg/m2 Pam Ley APRN-CAISSON WORKER Work Phone: [facility] 12-15-2023 14:51-0500 Body temperature 98.29 [degF] Pam Ley APRN-BARTOLO Work Phone: [facility] 12-15-2023 14:51-0500 Body weight 84.54 kg Pam Ley APRN-CAISSON WORKER Work Phone: [facility] 12-15-2023 14:51-0500 Diastolic blood pressure 60 mm[Hg] Pam Ley APRN-CAISSON WORKER Work Phone: [facility] 12-15-2023 14:51-0500 Heart rate 89 /min Pambrannon Ley APRN-CAISSON WORKER Work Phone: [facility] 12-15-2023 14:51-0500 SaO2% (BldA) [Mass fraction] 94 % Pam Ley PROCESS CHECKER-CAISSON WORKER Work Phone: [facility] 12-15-2023 14:51-0500 Systolic blood pressure 100 mm[Hg] Pam Ley PROCESS CHECKER-CAISSON WORKER Work Phone: [facility] 11-25-2023 13:56-0500 Body height 165.1 cm Rambo Muñoz MD Work Phone: [facility] 11-25-2023 13:56-0500 Body mass index (BMI) [Ratio] 31.45 kg/m2 Rambo Muñoz MD Work Phone: [facility] 11-25-2023 13:56-0500 Body temperature 99 [degF] Rambo Muñoz MD Work Phone: [facility] 11-25-2023 13:56-0500 Body weight 85.73 kg Rambo Muñoz MD Work Phone: [facility] 11-25-2023 13:56-0500 Diastolic blood pressure 57 mm[Hg] Rambo Muñoz MD Work Phone: [facility] 11-25-2023 13:56-0500 Heart rate 65 /min Rambo Muñoz MD Work Phone: [facility] 9+ [facility] 11-25-2023 13:56-0500 Respiratory rate 16 /min Rambo Muñoz MD Work Phone: [facility] 11-25-2023 13:56-0500 SaO2% (BldA) [Mass fraction] 91 % Rambo Muñoz MD Work Phone: [facility] 11-25-2023 13:56-0500 Systolic blood pressure 141 mm[Hg] Rambo Muñoz MD Work Phone: [facility] 01-13-2023 07:13-0500 Body temperature 98.01 [degF] Luna Daniels MD Work Phone: [facility] 01-13-2023 07:13-0500 Diastolic blood pressure 54 mm[Hg] Luna Daniels MD Work Phone: [facility] 01-13-2023 07:13-0500 Heart rate 57 /min Luna Daniels MD Work Phone: [facility] [employer] 01-13-2023 07:13-0500 Respiratory rate 18 /min Luna Daniels MD Work Phone: [facility] [employer] 01-13-2023 07:13-0500 SaO2% (BldA) [Mass fraction] 98 % Luna Daniels MD Work Phone: [facility] 01-13-2023 07:13-0500 Systolic blood pressure 141 mm[Hg] Luna Daniels MD Work Phone: [facility] 12-11-2022 07:58-0500 Body temperature 98.8 [degF] Luna Daniels MD Work Phone: [facility] 12-11-2022 07:58-0500 Diastolic blood pressure 56 mm[Hg] Luna Daniels MD Work Phone: [facility] 12-11-2022 07:58-0500 Heart rate 85 /min Luna Daniels MD Work Phone: [facility] 12-11-2022 07:58-0500 Respiratory rate 16 /min Luna Daniels MD Work Phone: [facility] 12-11-2022 07:58-0500 SaO2% (BldA) [Mass fraction] 97 % Luna Daniels MD Work Phone: [facility] 12-11-2022 07:58-0500 Systolic blood pressure 156 mm[Hg] Luna Daniels MD Work Phone: [facility] 12-07-2022 11:44-0500 Body height 165.1 cm Luna Daniels MD Work Phone: [facility] 12-07-2022 11:44-0500 Body mass index (BMI) [Ratio] 34.61 kg/m2 Luna Daniels MD Work Phone: [facility] 12-07-2022 11:44-0500 Body weight 94.35 kg Luna Daniels MD Work Phone: [facility] 11-24-2022 11:44-0500 Body height 165.1 cm Stv B [employer] 11-24-2022 11:44-0500 Body mass index (BMI) [Ratio] 34.95 kg/m2 Stv [facility] 11-24-2022 11:44-0500 Body temperature 98.4 [degF] Stv B [employer] 11-24-2022 11:44-0500 Body weight 95.25 kg Stv [facility] [employer] 11-24-2022 11:44-0500 Diastolic blood pressure 45 mm[Hg] Stv B [facility] 11-24-2022 11:44-0500 Heart rate 60 /min Stv [facility] [employer] 11-24-2022 11:44-0500 Respiratory rate 15 /min Stv [facility] [employer] 11-24-2022 11:44-0500 SaO2% (BldA) [Mass fraction] 93 % Stv [facility] 11-24-2022 11:44-0500 Systolic blood pressure 131 mm[Hg] Stv [facility] Encounters Encounter Date Encounter Type Care Provider Facility Start: 09-15-2024 End: 09-15-2024 ambulatory MARC Bhatti [facility] Start: 09-06-2024 End: 09-06-2024 Telephone encounter Alice Villator[facility] Start: 08-29-2024 End: 09-04-2024 Refill Jaylan Gray PROCESS CHECKER-CAISSON WORKER Work Phone: [facility] Start: 08-28-2024 End: 08-28-2024 ambulatory [facility] Start: 08-28-2024 End: 08-28-2024 Transitional care manage srvc 7 day discharge Pam J [facility] PROCESS CHECKER-CAISSON WORKER Work Phone: [facility] Comment on above: Hypoglycemia (Primar y Dx); Need for influenza vaccination; Altered mental status, unspecified altered mental status type Start: 08-24-2024 End: 08-24-2024 Refill Jaylan Vicki Gray PROCESS CHECKER-CAISSON WORKER Work Phone: [facility] Start: 08-23-2024 End: 08-24-2024 ambulatory [facility] Start: 08-16-2024 End: 08-18-2024 Telephone encounter Delisa Torres RN [facility] Comment on above: Transition Of Care Start: 08-12-2024 End: 08-14-2024 Evaluation and management of inpatient MELY Patel [place] Start: 06-25-2024 End: 06-27-2024 [facility] Start: 06-21-2024 End: 06-21-2024 ambulatory [facility] Start: 06-13-2024 End: 06-16-2024 Emergency department patient visit ALIDAKyara ALLEN [facility] Start: 06-13-2024 End: 2024 Evaluation and management of inpatient [facility] Start: 06-02-2024 End: 06-02-2024 ambulatory RICKS Joana TONI [facility] Start: 05-25-2024 ambulatory [facility] Start: 05-03-2024 End: 05-03-2024 ambulatory [facility] Start: 04-13-2024 End: 04-13-2024 [facility] Start: 03-16-2024 End: 03-17-2024 ambulatory [facility] Start: 03-09-2024 End: 03-09-2024 ambulatory [facility] Start: 03-02-2024 End: 03-02-2024 ambulatory [facility] Start: 02-29-2024 ambulatory [facility] Start: 02-27-2024 End: 02-29-2024 Emergency department patient visit [facility] Start: 02-18-2024 End: 02-18-2024 ambulatory [facility] Start: 02-09-2024 End: 02-10-2024 ambulatory [facility] Start: 02-09-2024 End: 02-09-2024 Office outpatient visit 25 minutes Pam Ley PROCESS CHECKER-CAISSON WORKER [facility] Comment on above: Acute cystitis witho ut hematuria (Primary Dx); Urge incontinence of urine Start: 02-09-2024 End: 02-09-2024 ambulatory [facility] Start: 01-10-2024 End: 01-10-2024 ambulatory SIMEON Ram [facility] Start: 01-04-2024 Refall Muñoz MD Work Phone: Stephany Carnes [facility] Comment on above: 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, unspecified estrogen receptor status ([facility]) Start: 12-15-2023 End: 12-15-2023 Office outpatient visit 25 minutes Pam Ley PROCESS CHECKER-CAISSON WORKER Work Phone: [facility] Comment on above: Upper respiratory tr act infection, unspecified type (Primary Dx); Normal pressure hydrocephalus (CMS-HCC); Moderate episode of recurrent major depressive disorder ([facility]-H[facility]); PVD (peripheral vascular disease) ([facility]-HCC); 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 mellitus ([facility]-H[facility]); Stage 3b chronic kidney disease ([facility]-H[facility]); Major depressive disorder in partial remission, unspecified whether recurrent ([facility]); Essential hypertension; GERD without esophagitis; 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 ([facility]) Start: 12-15-2023 End: 12-15-2023 ambulatory PAM Estrella LEY [facility] Start: 12-06-2023 Refill Pam haines PROCESS CHECKER-CAISSON WORKER Work Phone: [facility] Comment on above: Insomnia, unspecifie d type Start: 11-25-2023 End: 11-25-2023 Office outpatient visit 25 minutes Rambo Muñoz MD Work Phone: Stephany Trice [facility] - Medical Oncology Comment on above: 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, unspecified estrogen receptor status ([facility]) (Primary Dx); 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 breast in female, estrogen receptor positive ([facility]) Start: 11-25-2023 End: 11-25-2023 ambulatory RAMBO MUÑOZ [facility] Start: 03-23-2023 End: 03-24-2023 ambulatory [facility] Start: 01-13-2023 End: 01-16-2023 [facility] Start: 01-13-2023 End: 01-15-2023 Subsequent hospital visit by physician Luna Daniels MD Work Phone: [facility] 3C Observation Comment on above: Arrived Severe aortic valve stenosis (Primary Dx); Type 2 diabetes mellitus with diabetic neuropathy, with long-term current use of insulin ([facility]); Tremors of nervous system; Family history of coronary arteriosclerosis; CHELSEA (obstructive sleep apnea) nonadherent with cpap; Stage 3a chronic kidney disease ([facility]); Coronary artery disease involving [place] coronary artery of [place] heart without angina pectoris Aortic valve stenosi s, etiology of cardiac valve disease unspecified Start: 12-07-2022 End: 12-11-2022 ambulatory LUNA DANIELS [facility] Start: 12-07-2022 End: 12-11-2022 Subsequent hospital visit by physician Luna Daniels MD Work Phone: [facility] 5A Stepdown Comment on above: Severe aortic valve stenosis (Primary Dx) Start: 11-24-2022 End: 11-25-2022 ambulatory FLIP JHA [facility] Start: 11-24-2022 End: 11-24-2022 Subsequent hospital visit by physician Stmino Bobbin Fixer Rm B STVEstefanía [facility] Comment on above: Canceled (Case zulay llhenri) Start: 09-28-2022 End: 09-30-2022 Evaluation and management of inpatient CADEN Patel DANIEL [facility] Start: 03-31-2022 End: 04-01-2022 ambulatory Vale Bowser Facility:[facility] Start: 03-26-2021 End: 03-27-2021 ambulatory ELIZABETH TOMLINSON [facility] Start: 03-24-2021 End: 03-25-2021 ambulatory LAKESHIA HENRIQUEZ [facility] Start: 03-24-2021 End: 03-24-2021 Subsequent hospital visit by physician Caden [facility] Start: 03-19-2021 End: 03-20-2021 ambulatory PAM LEY Facility: Procedures Date Procedure Procedure Detail Performing Clinician Start: 08-28-2024 Adult depression scr eening assessment Pam Ley PROCESS CHECKER-CAISSON WORKER Work Phone: Start: 06-21-2024 Adult depression scr eening assessment Delisa Torres RN Start: 03-16-2024 Follow-up visit Follow-up VALE BOWSER Start: 03-09-2024 Follow-up visit Follow-up RAMBO MUÑOZ Start: 03-02-2024 Follow-up visit Follow-up PAM LEY Start: 02-09-2024 Urnls dip stick/tabl et rgnt non-auto w/o micrscp Pam Ley PROCESS CHECKER-CAISSON WORKER Work Phone: Start: 02-09-2024 Adult depression scr eening assessment Pam Ley PROCESS CHECKER-CAISSON WORKER Work Phone: Start: 12-15-2023 Adult depression scr eening assessment Pam Ley PROCESS CHECKER-[facility] Work Phone: Start: 08-17-2023 Adult depression scr eening assessment Rambo Muñoz MD Work Phone: Start: 01-13-2023 Brncdilat rspse spmt ry pre&post-brncdilat admn [facility] - [facility] Work Phone: Start: 01-13-2023 Ct angiography chest w/contrast/noncontrast Namrata Blair PROCESS CHECKER - [facility] Work Phone: Start: 12-11-2022 Glucose blood reagent strip Luna Daniels MD Work Phone: Start: 12-10-2022 Glucose blood reagent strip Luna Daniels MD Work Phone: Start: 12-10-2022 Glucose blood reagent strip Luna Daniels MD Work Phone: Start: 12-10-2022 Glucose blood reagent strip Luna Daniels MD Work Phone: Start: 12-10-2022 Basic metabolic pane l calcium total Rita J Durancarlottahossein PROCESS CHECKER - [facility] Work Phone: Start: 12-10-2022 Antibody screen Luna morales MD Work Phone: Start: 12-10-2022 End: 12-10-2022 Glucose blood reagent strip Luna Daniels MD Work Phone: Start: 12-09-2022 End: 12-09-2022 Blood count hemoglobin Luna Daniels MD Work Phone: Start: 12-09-2022 Glucose blood reagent strip Luna Daniels MD Work Phone: Start: 12-09-2022 End: 12-09-2022 Transfusion of packed red blood cells Radha Moya PROCESS CHECKER - [facility] Work Phone: Start: 12-09-2022 Glucose blood [...] 03-24-2021 Assay of blood/uric acid Lakeshia Henriquez PROCESS CHECKER - [employer]ISSON WORK[employer] Work Phone: Plan of Treatment Date Care Activity Detail Author Start: 08-28-2025 Adult BMI Screening Adult BMI Screening [facility] Start: 08-28-2025 Depression Screening Depression Screening [facility] Start: 08-28-2025 Fall Risk Screening Fall Risk Screening [facility] Start: 08-28-2025 Tobacco Screening Tobacco Screening [facility] Start: 08-24-2025 Adult BMI Screening Adult BMI Screening [facility] Start: 08-23-2025 Tobacco Screening Tobacco Screening [facility] Start: 08-12-2025 Adult BMI Screening Adult BMI Screening [facility] Start: 08-12-2025 Tobacco Screening Tobacco Screening [facility] Start: 06-21-2025 Depression Screening Depression Screening [facility] Start: 06-21-2025 Fall Risk Screening Fall Risk Screening [facility] Start: 12-15-2024 Adult BMI Follow Up Plan Adult BMI Follow Up Plan [facility] Start: 12-15-2024 Adult BMI Screening Adult BMI Screening [facility] Start: 12-15-2024 Depression Screening Depression Screening [facility] Start: 12-15-2024 Fall Risk Screening Fall Risk Screening [facility] Start: 12-15-2024 Tobacco Screening Tobacco Screening [facility] Start: 11-25-2024 Adult BMI Screening Adult BMI Screening [facility] Start: 09-28-2024 Tobacco Screening Tobacco Screening [facility] Start: 09-13-2024 End: 09-13-2024 Patient encounter procedure 09/13/2024 2:00 PM EDT Appointment [facility] - Cardiovascular [address] [place] [phone] [facility] Start: 09-08-2024 End: 09-08-2024 Patient encounter procedure 09/08/2024 2:15 PM EDT Office Visit [facility] [address] [place] [address] Rambo Muñoz MD [address] [place] [id number] Stephany L [facility] - Medical Oncology Start: 08-31-2024 Adult BMI Follow Up Plan Adult BMI Follow Up Plan [facility] Start: 08-17-2024 Depression Screening Depression Screening [facility] Start: 08-10-2024 Fall Risk Screening Fall Risk Screening [facility] Start: 08-10-2024 Medicare Annual Wellness Visit Medicare Annual Wellness Visit [facility] Start: 07-16-2024 Influenza vaccination Influenza Vaccine [facility] Start: 03-09-2024 End: 03-09-2024 Patient encounter procedure 03/09/2024 3:15 PM EDT Office Visit Stephanyneida Landaverde [facility] - Medical Oncology [address] [place] [address] Rambo Muñoz MD [address] [facility] [address] [place] [id number] Stephany L Akhil [facility] - Medical Oncology Start: 01-13-2024 End: 01-13-2024 Patient encounter procedure 01/13/2024 1:00 PM EST [facility] [address] [place] [phone] Pam Ley, PROCESS CHECKER-CAISSON WORKER [address] [place] [phone] [facility] Start: 09-02-2023 Lipid panel Lipids [facility] Start: 02-02-2023 End: 02-02-2023 Patient encounter procedure 02/02/2023 Appointment IP Unit [facility] Start: 01-18-2023 End: 01-14-2024 Basic metabolic 2000 panel - Serum or Plasma Basic Metabolic Panel Lab STAT Severe aortic valve stenosis Expected: 01/18/2023, Expires: 01/14/2024 [facility] Work Phone: Comment on above: Expected: 01/18/2023, Expires: 4 Start: 12-17-2022 End: 12-10-2023 Basic metabolic 2000 panel - Serum or Plasma Basic Metabolic Panel Lab Routine Severe aortic valve stenosis Expected: 12/17/2022, Expires: 12/10/2023 [facility] [employer] Phone: Comment on above: Expected: 12/17/2022, Expires: 4 Start: 12-17-2022 End: 12-10-2023 Hemoglobin and Hematocrit Hemoglobin and Hematocrit Lab Routine Severe aortic valve stenosis Expected: 12/17/2022, Expires: 12/10/2023 [employer] Phone: Comment on above: Expected: 12/17/2022, Expires: Start: 09-28-2022 Annual Wellness Visit (AWV) Annual Wellness Visit (AWV) [facility] [employer] Start: 07-16-2021 Influenza vaccination Flu vaccine (Season Ended) [employer] Phone: Start: 04-01-2021 COVID-19 Vaccine (3 - Booster for Pfizer series) COVID-19 Vaccine (3 - Booster for Pfizer series) [facility] Start: 03-04-2021 COVID-19 Vaccine (3 - Pfizer risk series) COVID-19 Vaccine (3 - Pfizer risk series) [facility] 9+ [facility] Start: 1996 Shingles vaccine (1 of 2) Shingles vaccine (1 of 2) [facility] Start: 1965 Administration of varicella zoster vaccine Zoster (Shingles) Vaccine (1 of 2) [facility] 9+ [facility] Start: 1965 DTaP,Tdap and Td Vaccines (1 - Tdap) DTaP,Tdap and Td Vaccines (1 - Tdap) [facility] 9+ [facility] Start: 1965 DTaP/Tdap/Td vaccine (1 - Tdap) DTaP/Tdap/Td vaccine (1 - Tdap) [facility] Start: 1964 Hepatitis C screening Hepatitis C screen [facility] Start: 1962 COVID-19 Vaccine (1) COVID-19 Vaccine (1) [employer] Phone: Start: 1958 Depression Screen Depression Screen [facility] Start: 1946 Creatinine measurement Creatinine monitoring [employer] Phone: Start: 1946 Potassium monitoring Potassium monitoring [employer] Phone: End: 02-08-2025 Bacteria identified in Urine by Culture Urine culture (clean catch) Microbiology Routine Acute cystitis without hematuria 1 Occurrences starting 02/09/2024 until 02/08/2025 [email or web address] Phone: Comment on above: 1 Occurrences starting 02/09/2024 until 02/08/2025 End: 12-07-2022 Blood Bank Specimen [employer] Phone: Comment on above: Once for 1 Occurrences starting 12/07/19 23 until 12/07/2022 End: 11-25-2024 Cancer antigen 15-3 Cancer antigen 15-3 Lab Routine 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 female breast, unspecified estrogen receptor status (CMS-HCC) every 3 months for 50 Occurrences starting 11/25/2023 until 11/25/2024 [employer] Comment on above: every 3 months for 50 Occurrences starti ng 11/25/2023 until 11/25/2024 End: 11-25-2024 Cancer antigen 27-29 Cancer antigen 27-29 Lab Routine 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 female breast, unspecified estrogen receptor status (CMS-HCC) every 3 months for 50 Occurrences starting 11/25/2023 until 11/25/2024 [employer] Comment on above: every 3 months for 50 Occurrences starti ng 11/25/2023 until 11/25/2024 End: 11-24-2022 Catheterization and angiography procedure details panel Cardiac Catheterization Cardiac Cath Routine One Time for 1 Occurrences starting 11/24/2022 until 11/24/2022 [employer] Phone: Comment on above: One Time for 1 Occurrences starting 11/15 until 11/24/2022 End: 12-07-2022 Catheterization and angiography procedure details panel Cardiac Catheterization Cardiac Cath Routine One Time for 1 Occurrences starting 12/07/2022 until 12/07/2022 [employer] Phone: Comment on above: One Time for 1 Occurrences starting 11/16 until 12/07/2022 End: 11-25-2024 CBC W Auto Differential panel - Blood CBC with auto diff Lab Routine 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 female breast, unspecified estrogen receptor status (CMS-HCC) every 3 months for 50 Occurrences starting 11/25/2023 until 11/25/2024 [employer] Work Phone: Comment on above: every 3 months for 50 Occurrences starti ng 11/25/2023 until 11/25/2024 End: 11-25-2024 Comprehensive metabolic 2000 panel - Serum or Plasma Comprehensive metabolic panel Lab Routine 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 female breast, unspecified estrogen receptor status (CMS-HCC) every 3 months for 50 Occurrences starting 11/25/2023 until 11/25/2024 [employer] Comment on above: every 3 months for 50 Occurrences starti ng 11/25/2023 until 11/25/2024 End: 01-13-2023 CT CARDIAC W C STC MORP CARD ONLY [employer] Phone: Comment on above: 1 Occurrences starting 01/13/2023 until 01/13/2023 End: 12-07-2022 EKG 12 lead EKG 12 lead ECG Routine One Time for 1 Occurrences starting 12/07/2022 until 12/07/2022 [employer] Phone: Comment on above: One Time for 1 Occurrences starting 11/16 until 12/07/2022 Glucose [Mass/volume ] in Serum or Plasma POCT glucose Point of Care Testing Routine 4X Daily (AC & HS) until discontinued starting 12/07/2022 [employer] Phone: Comment on above: 4X Daily (AC & HS) until discontinued st arting 12/07/2022 End: 12-10-2022 Hemoglobin and Hematocrit Hemoglobin and Hematocrit Lab STAT Post Transfusion Post Transfusion Post Transfustion for 1 Occurrences starting 12/09/2022 until 12/10/2022 [employer] Phone: Comment on above: Post Transfusion Post Transfusion Post T ransfustion for 1 Occurrences starting 12/09/2022 until 12/10/2022 Oxygen therapy [Mini mum Data Set] Initiate Oxygen Therapy Protocol Respiratory Care Routine As Needed until discontinued starting 11/24/2022 [employer] Phone: Comment on above: As Needed until discontinued starting Oxygen therapy [Mini mum Data Set] Initiate Oxygen Therapy Protocol Respiratory Care Routine As Needed until discontinued starting 12/07/2022 [employer] Phone: Comment on above: As Needed until discontinued starting Oxygen therapy [Mini mum Data Set] Initiate Oxygen Therapy Protocol Respiratory Care Routine As Needed until discontinued starting 12/07/2022 [facility] Comment on above: As Needed until discontinued starting End: 11-24-2022 POC CHEM8 INCLUDES CALC. ANION GAP POC CHEM8 INCLUDES CALC. ANION GAP Point of Care Testing STAT One Time for 1 Occurrences starting 11/24/2022 until 11/24/2022 [employer] Phone: Comment on above: One Time for 1 Occurrences starting 11/15 until 11/24/2022 End: 12-07-2022 POC CHEM8 INCLUDES CALC. ANION GAP POC CHEM8 INCLUDES CALC. ANION GAP Point of Care Testing STAT One Time for 1 Occurrences starting 12/07/2022 until 12/07/2022 [employer] Phone: Comment on above: One Time for 1 Occurrences starting 11/16 until 12/07/2022 End: 12-07-2022 PREPARE RBC (CROSSMATCH), 1 Units PREPARE RBC (CROSSMATCH), 1 Units Blood Bank STAT Once for 1 Occurrences starting 12/07/2022 until 12/07/2022 [employer] Phone: Comment on above: Once for 1 Occurrences starting 12/07/19 until 12/07/2022 End: 12-08-2022 PREPARE RBC (CROSSMATCH), 1 Units PREPARE RBC (CROSSMATCH), 1 Units Blood Bank Routine Once for 1 Occurrences starting 12/08/2022 until 12/08/2022 [employer] Phone: Comment on above: Once for 1 Occurrences starting 12/08/19 until 12/08/2022 End: 12-09-2022 PREPARE RBC (CROSSMATCH), 1 Units PREPARE RBC (CROSSMATCH), 1 Units Blood Bank Routine Once for 1 Occurrences starting 12/09/2022 until 12/09/2022 [employer] Phone: Comment on above: Once for 1 Occurrences starting 12/09/19 until 12/09/2022 End: 12-08-2022 PREVIOUS SPECIMEN [employer] Work Phone: Comment on above: Once for 1 Occurrences starting 12/08/19 until 12/08/2022 Immunizations Immunization Date Immunization Notes Care Provider [facility] 08-28-2024 Seasonal trivalent influenza vaccine, adjuvanted, preservative free Pam Ley APRN-CAISSON WORKER Work Phone: [facility] [employer] 08-28-2024 Immunization, In Clinic,; Translations: [Drug or medicament (substance)] Pam Ley PROCESS CHECKER-CAISSON WORKER Work Phone: [facility] 08-10-2023 Influenza Vaccine, Quadrivalent, Adjuvanted Rambo Muñoz MD Work Phone: [facility] 08-10-2023 influenza virus vacc ine, unspecified formulation Delisa Torres RN [facility] 08-06-2022 Influenza Vaccine, Quadrivalent, Adjuvanted Rambo Muñoz MD Work Phone: [facility] 08-27-2021 influenza, high dose seasonal, preservative-free Rambo Muñoz MD Work Phone: [facility] 05-28-2021 pneumococcal conjuga te vaccine, 13 valent Rambo Muñoz MD Work Phone: [facility] 02-04-2021 COVID-19, mRNA, LNP- S, PF, 30mcg/0.3mL Dose Rambo Muñoz MD Work Phone: [facility] 01-07-2021 COVID-19, mRNA, LNP- S, PF, 30mcg/0.3mL Dose Rambo Muñoz MD Work Phone: [facility] 11-25-2020 influenza, injectabl e, quadrivalent, preservative free Rambo Muñoz MD Work Phone: [facility] 08-30-2020 Influenza, High-dose , Quadrivalent Rambo Muñoz MD Work Phone: [facility] 09-14-2019 influenza, injectabl e, quadrivalent, contains preservative Rambo Muñoz MD Work Phone: [facility] 09-11-2019 influenza, injectabl e, quadrivalent, preservative free Rambo Muñoz MD Work Phone: [facility] 08-31-2018 influenza, injectabl e, quadrivalent, preservative free Rambo Muñoz MD Work Phone: [facility] 09-07-2017 influenza, injectabl e, quadrivalent, preservative free Rambo Muñoz MD Work Phone: [facility] 07-10-2015 pneumococcal polysaccharide vaccine, 23 valent Rambo Muñoz MD Work Phone: [facility] Payers Date Payer Category Payer Medicare [facility] MEDIC[facility] ANTH MEDICARE ADVANTAGE [id number] 2022-[facility] [phone] [address] [place] [address] [id number] 2022 Medicare HMO ANTHEM MEDICARE [id number] 2022 Medicare [id number]. [id number] 2022 Medicare [id number] 2022 Medicaid [id number] [id number]. [id number] 2017 Medicaid [id number] 2017 Unknown [id number] 1959 Medicaid [id number] 1946 Unknown [id number] 2.16.840.1.659972.3.579.2.593 1946 Unknown [id number] 2.16.840.1.887396.3.579.2.647 1946 Unknown [id number] 2.16.840.1.653527.3.579.2.175 1946 Unknown [id number] 2.16.840.1.513013.3.579.2.175 1946 Unknown [id number] 2.16.840.1.316883.3.579.2.175 1946 Unknown [id number] 2.16.840.1.812585.3.579.2.175 1946 Unknown [id number] 2.16.840.1.876839.3.579.2.175 1946 Unknown [id number] 2.16.840.1.741395.3.579.2.175 1946 Unknown [id number] 2.16.840.1.259022.3.579.2.175 1946 Unknown [id number] 2.16.840.1.408856.3.579.2.175 1946 Unknown [id number] 2.16.840.1.156690.3.579.2.1285 1946 Unknown [id number] 2.16.840.1.979841.3.579.2.128 1946 Unknown [id number] 2.16.840.1.910869.3.579.2.1285 1946 Unknown [id number] 2.16.840.1.916291.3.579.2.1285 1946 Unknown [id number] 2.16.840.1.628826.3.579.2.1285 1946 Unknown [id number] 2.16.840.1.018935.3.579.2.1285 1946 Unknown [id number] 2.16.840.1.897332.3.579.2.1285 1946 Unknown [id number] 2.16.840.1.052558.3.579.2.1285 1946 Unknown [id number] 2.16.840.1.525987.3.579.2.1285 1946 Unknown [id number] 2.16.840.1.081600.3.579.2.1285 1946 Unknown [id number] 2.16.840.1.121506.3.579.2.1285 1946 Unknown [id number] 2.16.840.1.679581.3.579.2.1285 1946 Unknown [id number] 2.16.840.1.378909.3.579.2.1285 1946 Unknown [id number] 2.16.840.1.152807.3.579.2.1285 1946 Unknown [id number] 2.16.840.1.471458.3.579.2.1285 1946 Unknown [id number] 2.16.840.1.431311.3.579.2.1285 1946 Unknown [id number] 2.16.840.1.745815.3.579.2.1285 1946 Unknown [id number] 2.16.840.1.152962.3.579.2.1285 1946 Unknown [id number] 2.16.840.1.927001.3.579.2.1285 1946 Unknown [id number] 2.16840.1.925094.3.579.2.1285 1946 Unknown [id number] 2.16840.1.511774.3.579.2.1285 1946 Unknown [id number] 2.16840.1.955275.3.579.2.1285 1946 Unknown [id number] 2.16840.1.271864.3.579.2.1285 1946 Unknown [id number] 2.16840.1.857580.3.579.2.1285 1946 Unknown [id number] 2.16840.1.655223.3.579.2.1285 1946 Unknown [id number] 2.16840.1.984240.3.579.2.1286 Social History Date Type Detail Facility Start: 10-15-2014 End: 10-05-2022 Tobacco smoking status NMIS Never smoker [facility] Start: 10-15-2014 End: 08-28-2024 Alcohol intake Current non-drinker of alcohol (finding) [facility] Work Phone: Start: 10-02-2014 Alcohol Comment occaisional [employer] Phone: Start: 1945 Sex Assigned At Not on file [employer] Phone: Start: 11-14-2022 End: 12-07-2022 Exposure to SARS-CoV-2 (event) Not sure [facility] [employer] Start: 10-05-2022 Tobacco use and exposure Smokeless tobacco [facility]-user [facility] Start: 10-05-2022 End: 08-23-2024 History of Social function [facility] Start: 10-05-2022 End: 08-23-2024 Social connection and isolation panel [facility] Do you belong to any clubs or organizations such as scientology groups, unions, fraternal or athletic groups, or school groups? Yes [facility] Are you now , , , , never or living with a partner? Never [facility] How often to you hav e a drink containing alcohol? Never [facility] How many standard dr inks containing alcohol do you have on a typical day? Patient does not drink [facility] Do you feel stress - tense, restless, nervous, or anxious, or unable to sleep at night because your mind is troubled all the time - these days [OSQ] Not at all [facility] Start: 03-21-2020 Gender identity Identifies as female gender (finding) [facility] Start: 10-05-2022 Sexual orientation Heterosexual (finding) [facility] Has the [employer], [employer], or [employer] threatened to shut off services in your home in past 12Mo No [facility] Start: 06-20-2015 Sex Female (finding) [facility] Medical Equipment Procedure Code Equipment Code Equipment Origin al Text Equipment Identifier Dates Valve Aor Evolut Fx 26mm - [id number] - [id number] Start: 08-17-2023 [id number] Start: 10-11-2020 USE FOUR TIMES A DAY. ICD 10 E11.29 [id number] Start: 08-31-2022 4 applicators by miscellaneous route See Admin Instructions. 4 times daily injection [id number] Start: 04-21-2021 Goals Date Patient Goal Desired [...] stairs Contact your local community or senior [place] for information on exercise, fall prevention programs, [...] - KAIDEN Werner - 09/06/2024 3:15 PM EDTKAIDNE Werner - 08/28/2024 8:00 AM EDT Note Date & Type Note Facility 09-06-2024 Miscellaneous Notes [facility] called to see if you could send in nystatin ( 60g bottle) for this pt , pt has excoriated abdomen folds ,flacky red fungal odor , she did educate pt , also stated the right side is worse than the left side done documented in this encounter [facility] 09-06-2024 Telephone encounter Note [facility] called to see if you could send in nystatin ( 60g bottle) for this pt , pt has excoriated abdomen folds ,flacky red fungal odor , she did educate pt , also stated the right side is worse than the left side [facility] 09-06-2024 Telephone encounter Note [facility] 08-28-2024 History of Present illness Narrative [...] Discharge Specialty: Endocrine Name of Discharging Facility: [facility] Date of Facility Discharge: Admitted: 08/23/24 Discharged: 08/24/24 Date of Interactive Contact and Name of Computer Systems Designer: 08/25/24 Spoke with patient's daughterIleana Medication Review [...] most recent facility discharge document. Discharged from [facility] on 08-24-24 Patient is accompanied by her [...] it was very low. She called the [facility] for ER transport for evaluation. Type 2 DM is managed by endocrine, Zainab Hernandez. Influenza vaccine administered today Follow up 5 months Sooner if needed KAIDEN Werner 08/28/24 0902 documented in this encounter [facility] 08-16-2024 Miscellaneous Notes Do you still need a TCM on this patient? She currently has COVID-19. I am going to say not at this time documented in this encounter [facility] 08-16-2024 Telephone encounter Note Do you still need a TCM on this patient? [facility] 08-16-2024 Telephone encounter Note She currently has COVID-19. I am going to say not at this time [facility] 08-16-2024 Miscellaneous Notes Transition of Care (*required) *Additional Questions/Concerns Requiring PCP Follow-Up: -Patient does not have CELI appointment scheduled This documentation is being used for Transition of Care purposes: Yes Goal: Patient will demonstrate a safe transition from hospital to home Diagnosis on Discharge: DISCHARGE DIAGNOSES Principal Problem: Acute respiratory failure with hypoxia and hypercapnia ([facility]) Active Problems: PVD (peripheral vascular disease) ([facility]) Mixed diabetic hyperlipidemia associated with type 2 diabetes mellitus ([facility]) Obstructive sleep apnea syndrome Essential (primary) hypertension Acute cystitis without hematuria Stage 3b chronic kidney disease ([facility]) Sepsis without acute organ dysfunction ([facility]) Iron deficiency anemia secondary to inadequate dietary iron intake COVID-19 virus infection Discharge Specialty: Other *Name of Discharging Facility: [facility] Date of Facility Discharge: Admission 08/12/24 Discharge 08/14/24 Date of Interactive Contact and Name of Computer Systems Designer: 08/16/24 10:22 am Spoke to patients molina [...] on this one. documented in this encounter [facility] 08-16-2024 Telephone encounter Note Transition of Care (*required) *Additional Questions/Concerns Requiring PCP Follow-Up: -Patient does not have CELI appointment scheduled This documentation is being used for Transition of Care purposes: Yes Goal: Patient will demonstrate a safe transition from hospital to home Diagnosis on Discharge: DISCHARGE DIAGNOSES Principal Problem: Acute respiratory failure with hypoxia and hypercapnia ([facility]) Active Problems: PVD (peripheral vascular disease) ([facility]) Mixed diabetic hyperlipidemia associated with type 2 diabetes mellitus ([facility]) Obstructive sleep apnea syndrome Essential (primary) hypertension Acute cystitis without hematuria Stage 3b chronic kidney disease ([facility]) Sepsis without acute organ dysfunction ([facility]) Iron deficiency anemia secondary to inadequate dietary iron intake COVID-19 virus infection Discharge Specialty: Other *Name of Discharging Facility: [facility] Date of Facility Discharge: Admission 08/12/24 Discharge 08/14/24 Date of Interactive Contact and Name of Computer Systems Designer: 08/16/24 10:22 am Spoke to patients daughter [...] Other Services Utilized/Needed by the Patient: NA [facility] 08-16-2024 Telephone encounter Note Patient currently has COVID so she will pass on this one. [facility] 06-25-2024 Note XR CHEST 1 VW Procedure: Chest x-ray performed Number of views:AP portable erect History:Hypoglycemia Comparison:06/13/2024 Findings: The heart and mediastinal silhouette are stable. There are no focal consolidations or effusions. The pulmonary vasculature is normal. There is no pneumothorax. Impression: No acute process. Finalized by Pina Fatima DO on 06/25/2024 10:40 PM [facility] 03-16-2024 Note SUBJECTIVE: Chief complaint: NPH with CLAIM REVIEW MEDICAL DIRECTOR shunt, recent stroke. History of present illness: Was hospitalized at outside hospital few days ago when she had experienced abrupt onset of dysarthria as well as facial droop. Was seen at [facility]. Providers there had requested an MRI of the brain and were told by [facility] neurosurgery that she could have [...] medication for this. Had CT brain and CLAIM REVIEW MEDICAL DIRECTOR shunt series completed today. Review of systems: As in HPI. Past Medical History: Diagnosis Date Aortic stenosis Asthma Atrial fibrillation (CMS/HCC) Cancer (CMS/HCC) 02/2023 right breast, metastatic Cataract CKD (chronic kidney disease) Coronary artery disease Depression Diabetes mellitus ([facility]) Dyslipidemia GERD (gastroesophageal reflux disease) Hypertension NPH (normal pressure hydrocephalus) (CMS/HCC) PVD (peripheral vascular disease) ([facility]) Sleep apnea Past Surgical History: Procedure [...] cefuroxime cholecalciferol (vitamin D3) clopidogrel Dexcom G6 Vacuum Furnace Operator [facility] Dexcom G6 Transmitter device ferrous sulfate FreeStyle Kartik 14 Day Bassett [facility] FreeStyle Kartik 14 Day Sensor kit furosemide gabapentin hydroCHLOROthiazide insulin lispro lancets misc letrozole Levemir FlexPen insulin pen melatonin capsule metoprolol tartrate miscellaneous medical supply mis mupirocin ONETOUCH ULTRA BLUE TEST STRIP [facility] OneTouch Ultra Test strip oxybutynin pantoprazole pen [...] sugar diagnostic (ONETOUCH ULTRA BLUE TEST STRIP [facility]), OneTouch Ultra Blue Test Strip, Disp: , [...] the morning., Disp: , Rfl: Dexcom G6 Vacuum Furnace Operator [facility], See administration instructions., Disp: , Rfl: Dexcom G6 Transmitter device, CHANGE EVRY 90 DAYS., Disp: , Rfl: ferrous sulfate 325 (65 Fe) MG EC tablet, Take 325 mg by mouth., Disp: , Rfl: FreeStyle Kartik reader (FreeStyle Kartik 14 Day Bassett) misc, FreeStyle Kartik 14 Day Bassett, Disp: , Rfl: FreeStyle Kartik sensor system (FreeStyle Kartik 14 Day Sensor) kit, FreeStyle Kartik 14 Day Sensor kit, Disp: , Rfl: furosemide (Lasix) 20 mg tablet, Take 20 mg by mouth in the morning., Disp: , Rfl: gabapentin (Neurontin) 300 mg capsule, TAKE 1 CAPSULE (300 MG TOTAL) BY MOUTH IN T (more content not included)... [facility] 02-09-2024 History of Present illness Narrative Images from the original note were not included. [address] [place] [address] SUBJECTIVE: Patient ID: Cuca Goodwin is a 78 y.o. female. Chief Complaint Patient presents with incontinence Accompanied by daughter today Urine is cloudy, increased incontinence. Concerns for reoccurrence of UTI. Patient was hospitalized at [facility] in September 2023 for UTI. Uses Purewick [...] by Sang Bell DO at [facility] HYSTEROSCOPY DILATION CURETTAGE MYOSURE N/A 01/29/2021 Performed by Jv Briones MD at [facility] INJECTION BLOCK EPIDURAL CAUDAL STEROID N/A 08/14/2022 Performed by Arnulfo Gonzalez MD at [facility] INJECTION BLOCK EPIDURAL CAUDAL STEROID N/A 06/06/2021 Performed by Arnulfo Gonzalez MD at [facility] INJECTION BLOCK EPIDURAL CAUDAL STEROID N/A 04/25/2021 Performed by Arnulfo Gonzalez MD at [facility] INJECTION CAUDAL EPIDURAL WITH CATHETER, STEROID N/A 05/03/2020 Performed by Arnulfo Gonzalez MD at [facility] INJECTION CAUDAL EPIDURAL WITH CATHETER, STEROID N/A 11/24/2019 Performed by Arnulfo Gonzalez MD at [facility] INJECTION CAUDAL EPIDURAL WITH CATHETER, STEROID N/A 04/21/2019 Performed by Arnulfo Gonzalez MD at [facility] MEDIAL BRANCH NERVE BLOCK Bilateral L 4/5, 5/1 Bilateral 08/18/2019 Performed by Arnulfo Gonzalez MD at [facility] INJECTION MEDIAL BRANCH NERVE BLOCK Bilateral L 4/5, 5/1 Bilateral 06/23/2019 Performed by Arnulfo Gonzalez MD at [facility] STEROID EPI 1 WITH SEDATION Right L 4, 5 NR Right 03/17/2019 Performed by Arnulfo Gonzalez MD at [facility] INJECTION STEROID EPI 1 WITH SEDATION: right L45 nroot Right 08/15/2018 Performed by Arnulfo Gonzalez MD at [facility] LEFT L4, AND 5 NERVE ROOT INJECTION 2 OF 2 Left 07/22/2018 Performed by Arnulfo Gonzalez MD at [facility] LEFT L4, AND L5 NERVE ROOT 1 OF 2 Left 07/04/2018 Performed by Arnulfo Gonzalez MD at [facility] PERCUTANEOUS CORONARY INTERVENTION SHUNT INSERTION TONSILLECTOMY AGE 4 Transcutaneous aortic valve replacement/Transfemoral/Kwan N/A 08/17/2023 Performed by Chava Norris MD at [facility] Valvuloplasty aortic N/A 06/03/2023 Performed by Chava Norris MD at [facility] Past Medical History: Diagnosis Date Anemia Arthritis Asthma very mild, no inhaler use Cataract Dental disease Depression Diabetes mellitus ([facility]) Diabetes mellitus type 2, controlled ([facility]) Encephalitis Foot fracture, left GERD (gastroesophageal reflux disease) Heart murmur HLD (hyperlipidemia) Hypertension Incontinence Injury of back Insulin dependent diabetes mellitus Kidney failure STAGE 4 Lumbar spondylolysis Murmur Obesity CHELSEA (obstructive sleep apnea) no machine Peptic ulceration Peripheral vascular disease ([facility]) Shortness of breath TIA (transient ischemic [...] Werner 02/09/24 1420 documented in this encounter [facility] 12-15-2023 History of Present illness Narrative Images from the original note were not included. [address] [place] [address] SUBJECTIVE: Patient ID: Cuca Goodwin is [...] by Sang Bell DO at [facility] HYSTEROSCOPY DILATION CURETTAGE MYOSURE N/A 01/29/2021 Performed by Jv Briones MD at [facility] INJECTION BLOCK EPIDURAL CAUDAL STEROID N/A 08/14/2022 Performed by Arnulfo Gonzalez MD at [facility] INJECTION BLOCK EPIDURAL CAUDAL STEROID N/A 06/06/2021 Performed by Arnulfo Gonzalez MD at [facility] INJECTION BLOCK EPIDURAL CAUDAL STEROID N/A 04/25/2021 Performed by Arnulfo Gonzalez MD at [facility] INJECTION CAUDAL EPIDURAL WITH CATHETER, STEROID N/A 05/03/2020 Performed by Arnulfo Gonzalez MD at [facility] INJECTION CAUDAL EPIDURAL WITH CATHETER, STEROID N/A 11/24/2019 Performed by Arnulfo Gonzalez MD at [facility] INJECTION CAUDAL EPIDURAL WITH CATHETER, STEROID N/A 04/21/2019 Performed by Arnulfo Gonzalez MD at [facility] INJECTION MEDIAL BRANCH NERVE BLOCK Bilateral L 4/5, 5/1 Bilateral 08/18/2019 Performed by Arnulfo Gonzalez MD at [facility] MEDIAL BRANCH NERVE BLOCK Bilateral L 4/5, 5/1 Bilateral 06/23/2019 Performed by Arnulfo Gonzalez MD at [facility] INJECTION STEROID EPI 1 WITH SEDATION Right L 4, 5 NR Right 03/17/2019 Performed by Arnulfo Gonzalez MD at [facility] INJECTION STEROID EPI 1 WITH SEDATION: right L45 nroot Right 08/15/2018 Performed by Arnulfo Gonzalez MD at [facility] LEFT L4, AND 5 NERVE ROOT INJECTION 2 OF 2 Left 07/22/2018 Performed by Arnulfo Gonzalez MD at [facility] LEFT L4, AND L5 NERVE ROOT 1 OF 2 Left 07/04/2018 Performed by Arnulfo Gonzalez MD at [facility] PERCUTANEOUS CORONARY INTERVENTION SHUNT INSERTION TONSILLECTOMY AGE 4 Transcutaneous aortic valve replacement/Transfemoral/Kwan N/A 08/17/2023 Performed by Chava Norris MD at [facility] Valvuloplasty aortic N/A 06/03/2023 Performed by Chava Norris MD at [facility] Past Medical History: Diagnosis Date Anemia Arthritis Asthma very mild, no inhaler use Cataract Dental disease Depression Diabetes mellitus ([facility]) Diabetes mellitus type 2, controlled ([facility]) Encephalitis Foot fracture, left GERD (gastroesophageal reflux disease) Heart murmur HLD (hyperlipidemia) Hypertension Incontinence Injury of back Insulin dependent diabetes mellitus Kidney failure STAGE 4 Lumbar spondylolysis Murmur Obesity CHELSEA (obstructive sleep apnea) no machine Peptic ulceration Peripheral vascular disease ([facility]) Shortness of breath TIA (transient ischemic [...] needed (cough and congestion). Normal pressure hydrocephalus ([facility]) Moderate episode of recurrent major depressive disorder ([facility]) PVD (peripheral vascular disease) ([facility]) 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 mellitus ([facility]) - gabapentin (NEURONTIN) 300 mg capsule; Take 1 capsule (300 mg total) by mouth in the morning and 1 capsule (300 mg total) before bedtime. Stage 3b chronic kidney disease ([facility]) Major depressive disorder in partial remission, unspecified whether recurrent ([facility]) - sertraline (ZOLOFT) 100 mg tablet; [...] stage 3b chronic kidney disease and hypertension ([facility]) - SITagliptin phosphate (JANUVIA) 50 mg tablet; Take 1 tablet (50 mg total) by mouth in the morning. Type 2 DM -Managed by endocrine in [place] She believes her A1c is below 7% [...] for sore throat. Tylenol as needed per change management specialist guidelines for fever or pain. Body mass [...] Werner 12/15/23 1559 documented in this encounter [facility] 11-25-2023 History of Present illness Narrative Images from the original note were not included. [facility] 11/25/23 Cuca Goodwin is a 78 y.o. year old female seen today in the oncology clinic. Chief Complaint Patient presents with Follow-up History of Present Illness: Mrs. Goodwin is a 78 y.o. female with history of aortic valve stenosis, she had PCI earlier in the year at [facility] for coronary disease. during the cardiac [...] mammary carcinoma, grade 2, ER strongly positive FL moderately positive and HER2 negative. There was [...] use Cataract Dental disease Depression Diabetes mellitus ([facility]) Diabetes mellitus type 2, controlled ([facility]) Encephalitis Foot fracture, left GERD (gastroesophageal reflux disease) Heart murmur HLD (hyperlipidemia) Hypertension Incontinence Injury of back Insulin dependent diabetes mellitus Kidney failure STAGE 4 Lumbar spondylolysis Murmur Obesity CHELSEA (obstructive sleep apnea) no machine Peptic ulceration [facility]ipheral vascular disease ([facility] [facility]) Shortness of breath TIA (transient ischemic attack) Upper respiratory infection UTI (urinary tract infection) Visual impairment Wears dentures Past Surgical History: Procedure Laterality Date BREAST BIOPSY Right 03/01/2023 ULT BIOPSY CATARACT EXTRACTION SECTION SECTION 03/14/1974 EGD N/A 10/17/2019 Performed by Sang Bell DO at [facility] HYSTEROSCOPY DILATION CURETTAGE MYOSURE N/A 01/29/2021 Performed by Jv Briones MD at [facility] INJECTION BLOCK EPIDURAL CAUDAL STEROID N/A 08/14/2022 Performed by Arnulfo Gonzalez MD at [facility] INJECTION BLOCK EPIDURAL CAUDAL STEROID N/A 06/06/2021 Performed by Arnulfo Gonzalez MD at [facility] INJECTION BLOCK EPIDURAL CAUDAL STEROID N/A 04/25/2021 Performed by Arnulfo Gonzalez MD at [facility] INJECTION CAUDAL EPIDURAL WITH CATHETER, STEROID N/A 05/03/2020 Performed by Arnulfo Gonzalez MD at [facility] CAUDAL EPIDURAL WITH CATHETER, STEROID N/A 11/24/2019 Performed by Arnulfo Gonzalez MD at [facility] INJECTION CAUDAL EPIDURAL WITH CATHETER, STEROID N/A 04/21/2019 Performed by Arnulfo Gonzalez MD at [facility] INJECTION MEDIAL BRANCH NERVE BLOCK Bilateral L 4/5, 5/1 Bilateral 08/18/2019 Performed by Arnulfo Gonzalez MD at [facility] INJECTION MEDIAL BRANCH NERVE BLOCK Bilateral L 4/5, 5/1 Bilateral 06/23/2019 Performed by Arnulfo Gonzalez MD at [facility] INJECTION STEROID EPI 1 WITH SEDATION Right L 4, 5 NR Right 03/17/2019 Performed by Arnulfo Gonzalez MD at [facility] INJECTION STEROID EPI 1 WITH SEDATION: right L45 nroot Right 08/15/2018 Performed by Arnulfo Gonzalez MD at [facility] LEFT L4, AND 5 NERVE ROOT INJECTION 2 OF 2 Left 07/22/2018 Performed by Arnulfo Gonzalez MD at [facility] LEFT L4, AND L5 NERVE ROOT 1 OF 2 Left 07/04/2018 Performed by Arnulfo Gonzalez MD at [facility] PERCUTANEOUS CORONARY INTERVENTION SHUNT INSERTION TONSILLECTOMY AGE 4 Transcutaneous aortic valve replacement/Transfemoral/Kwan N/A 08/17/2023 Performed by Chava Norris MD at [facility] Valvuloplasty aortic N/A 06/03/2023 Performed by Chava Norris MD at [facility] Family History Problem [...] min Stress: No Stress Concern Present (10/05/2022) [employer] - Occupational Stress Questionnaire Feeling of Stress : Not at all Social Connections: Moderately Isolated (10/05/2022) Social Connection and Isolation Panel [NHANES] Frequency of Communication with Friends and Family: Never Frequency of Social Gatherings with Friends and Family: Never Attends [employer] Services: More than 4 times per year [...] nephropathy, without long-term current use of insulin ([facility]) Signed by: KAIDEN Santana Monitor blood sugars four times daily and as needed clopidogreL 75 mg tablet Refills: 0 Dose: 75 mg Commonly known as: PLAVIX COMFORT EZ PEN NEEDLES 32 gauge x 5/16 needle Quantity: 200 each Refills: 6 For diagnoses: Type 2 diabetes mellitus with stage 4 chronic kidney disease, with long-term current use of insulin ([facility]) Dose: 4 applicator Signed by: KAIDEN Santana 4 applicators, miscellaneous, See admin instructions, 4 times daily injection Generic drug: pen needle, diabetic DEXCOM G6 ASSIGNMENT EDITOR misc Refills: 0 Dose: 1 Device Generic drug: blood-glucose meter,continuous DEXCOM G6 SENSOR device Refills: 0 Generic drug: blood-glucose sensor gabapentin 300 mg capsule Quantity: 180 capsule Refills: 1 Doctor's comments: 90 Day Supply. 1 refill For diagnoses: 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 mellitus ([facility]) Dose: 300 mg Signed by: KAIDEN Santana 300 mg, oral, 2 times daily Commonly known as: NEURONTIN hydroCHLOROthiazide 25 mg tablet Refills: 0 Dose: 25 mg Commonly known as: HYDRODIURIL insulin lispro 100 unit/mL insulin pen Refills: 0 For diagnoses: Mixed diabetic hyperlipidemia associated with type 2 diabetes mellitus ([facility]) Dose: 2 Units Signed by: RONNA [...] nephropathy, without long-term current use of insulin ([facility]) Signed by: KAIDEN Santana Monitor blood sugars four times daily and as needed Commonly known as: onetouch ultrasoft * ONETOUCH DELICA PLUS LANCET 33 gauge misc Refills: 0 Generic drug: lancets letrozole 2.5 mg chemo tablet Quantity: 90 tablet Refills: 3 For diagnoses: 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 female breast, unspecified estrogen receptor status ([facility]) Dose: 2.5 mg Signed by: Dr. Rambo Muñoz MD 2.5 mg, oral, Daily Commonly known as: FEMARA LEVEMIR FLEXPEN 100 unit/mL (3 mL) insulin pen Quantity: 30 mL Refills: 3 For diagnoses: Controlled type 2 diabetes mellitus with diabetic nephropathy, without long-term current use of insulin ([facility]) Signed by: KAIDEN Santana INJECT 30 UNITS UNDER THE SKIN NIGHTLY Generic drug: insulin detemir U-100 metoprolol succinate XL 25 mg 24 hr tablet Quantity: 90 tablet Refills: 2 For diagnoses: Essential hypertension, Athscl heart disease of [place] coronary artery w/o ang pctrs Dose: 25 [...] whether recurrent ([facility]) Dose: 100 mg Signed by: KAIDEN Santana 100 mg, oral, Daily Commonly known as: ZOLOFT SITagliptin phosphate 50 mg tablet Quantity: 90 tablet Refills: 1 For diagnoses: Diabetes mellitus type 2, insulin dependent ([facility]), 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 ([facility]) Dose: 50 mg Signed by: KAIDEN [...] receptor positive ([facility]) Other Visit Diagnoses 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 female breast, unspecified estrogen receptor status ([facility]) - Primary Relevant Orders CBC with auto [...] to ensure the accuracy of this automated commercial print salesman, some errors in commercial print salesman may have occurred. CC: Patient Care Team: KAIDEN Werner as PCP - General (Family Medicine) Simeon Quiles MD (Nephrology) KAIDEN Hsu as Nurse Practitioner (Pulmonary Medicine) Madison Ye MD as Referring Physician (Endocrinology, Diabetes & Metabolism) Rambo Muñoz MD as Consulting Physician (Hematology) PCP:Pam Ley Referring MD: Pam Ley AP* documented in this encounter [facility] 11-25-2023 Instructions Rambo Muñoz MD - 11/25/2023 2:30 PM EST Pet SCAN 02/2024. F/u in late 02/2024 to review results. Continue femara alone. Labs before appt: CBC, CMP, CA 15-3, CA 27.29. documented in this encounter [facility] 03-23-2023 Note SUBJECTIVE: Chief complaint: CLAIM REVIEW MEDICAL DIRECTOR shunt adjustment status post 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 History of present illness: Return visit for NPH status post CLAIM REVIEW MEDICAL DIRECTOR shunt. Had MRI thoracic and lumbar spine done at [facility] last week due to concern [...] vascular disease) ([facility]) Sleep apnea Past Surgical History: Procedure Laterality Date BREAST BIOPSY Right 03/01/2023 CATARACT EXTRACTION SECTION, CLASSIC CORONARY ANGIOPLASTY WITH STENT PLACEMENT 2022 HYSTEROSCOPY IR MISC SHUNTOGRAM 06/27/2020 IR MISC SHUNTOGRAM CHILDERS CONVERSION IR MISC SHUNTOGRAM 04/03/2022 IR MISC SHUNTOGRAM CHILDESR CONVERSION MR HEAD ANGIO WO IV CONTRAST [...] device ferrous sulfate FreeStyle Kartik 14 Day Bassett misc FreeStyle Kartik 14 Day Sensor kit [...] FreeStyle Kartik reader (FreeStyle Kartik 14 Day Bassett) misc, FreeStyle Kartik 14 Day Bassett, Disp: , Rfl: FreeStyle Kartik sensor system [...] (U-100) Insulin 10 (more content not included)... [facility] 12-11-2022 History of Present illness Narrative Patient discharged home. Discharge instructions were explained and given to the patient, patient verbalized understanding. All belongings were sent with the patient. No signs of acute distress noted, no concerns voiced. Physical Therapy Facility/Department: [address] Physical Therapy Name: Cuca Goodwin : [...] 25 Sasha Maldonado PT Physical Therapy Facility/Department: [address] STEPDOWN Daily Treatment Note NAME: Cuca [...] the original note were not included. Christin Shearing Shed Worker Progress Note Date: 12/09/2022 Patient name: uCca Goodwin Date of admission: 12/07/2022 5:55 PM [...] a max pressure of: 10 graciela. Resolute [place] 2.5 x 12 CÉSAR. 1 inflation(s) to [...] Plans for TAVR work-up as OP [employer] [phone] Physical Therapy Facility/Department: [address] Physical Therapy Initial Assessment Name: Cuca [...] repositioned in bed for comfort upon technical document writer's exit. Subjective Subjective: RN and pt [...] rollator at baseline) Transfer Assistance: Independent Active Medical Claims Specialist: No Mode of Transportation: Friends, Cab Occupation: [...] decreased stance time RLE Gait Deviations: Slow Diaan Distance: 8ft Comments: Pt demonstrates significant increased [...] the original note were not included. [employer]in Shearing Shed Worker Progress Note Date: 12/08/2022 Patient name: Cuca [...] a max pressure of: 10 graciela. [employer] [place] 2.5 x 12 CÉSAR. 1 inflation(s) to [...] Plans for TAVR work-up as OP [employer] Worker [facility]. [phone] Piped Buttonhole Machine Operator discussed the next step in the TAVR process, an appointment with the cardiothoracic surgeon, with patient and daughter at bedside in [facility]. Office number given to daughter, she will call to schedule in the next couple days. Piped Buttonhole Machine Operator's contact number also given. Patient declined AM [...] to Joelle PIERRE. Patient transported to room [facility] via stretcher. Right groin assessed by Joelle and technical document writer. Groin remains soft. Dr Jin at bedside [...] pressure held Manual pressure held per technical document writer for [address] Martinez at [...] 2. Bilateral groin areas clipped with technical document writer and Maggi estrada present. Daughter Ismael at bedside with patient. History and physical needs updated. Received post cardiac cath procedure to [facility] room 10. Assessment obtained. Restrictions reviewed with patient. Post procedure pathway initiated. Right site noted to have small hematoma, manual pressure held by Juana. Band aid dry and intact. Family at side. Patient without complaints. Head of bed flat with right leg straight. documented in this encounter [facility] [employer] Work Phone: 12-07-2022 Note [facility] Vascular Lower Extremities Arterial Duplex Procedure Patient Name CHRISTA Date of Study 12/07/2022 CUCA Date of 1945 Gender Female Age 77 year(s) Race Room Number 0501 Height: 65 inch, 165.1 cm Corporate ID # [id number] Weight: 208 pounds, 94.3 kg Patient BSA: 2.01 m^2 BMI: 34.61 kg/m^2 MR # [id number] Packaging Tech Whit Gan RVT Interpreting Physician Darnell Monique [...] ! ! +---------++-----+-----+------+-- --+------++---+-----+------+----+ ---------+ [facility] 11-24-2022 History of Present illness Narrative Patient admitted, consent signed and questions answered. Patient ready for procedure. Call light to reach with side rails up 2 of 2. Bilateral groin areas clipped with technical document writer and Jose PIERRE present. Daughter Ileana at bedside with patient. History and physical needs updated. documented in this encounter [facility] [employer] Phone: 03-20-2021 Note PROCEDURE: XR FOOT L T MIN 3 VIEWS COMPARISON: None. HISTORY: Pain FINDINGS: BONES:No acute fracture or dislocation. Persistent flexion of the toes limits their evaluation. Mild to moderate degenerative changes with joint space narrowing and marginal osteophyte formation, most significant at the first metatarsophalangeal joint where yxay-de-[id number] endplate is observed SOFT TISSUES:Negative. No visible soft tissue swelling. EFFUSION:None visible. OTHER: Negative. IMPRESSION: Moderate degenerative changes, no acute fracture Electronically authenticated by: GIOVANNY NICOLE Date: 2021-03-20 08:29 [facility] Evaluation note Diagnosis Severe aortic valve stenosis- Primary Aortic valve disorders documented in this encounter [employer] Phone: evaluation note* Diagnosis RAIN (acute kidney injury) ([facility])- Primary Acute kidney failure, unspecified documented in this encounter [employer] Phone: evaluation note* Diagnosis Severe aortic valve stenosis- Primary Aortic valve disorders Type 2 diabetes mellitus with diabetic neuropathy, with long-term current use of insulin ([facility]) Tremors of nervous system Abnormal involuntary movements Family history of coronary arteriosclerosis Family history of ischemic heart disease CHELSEA (obstructive sleep apnea) nonadherent with cpap Obstructive sleep apnea (adult) (pediatric) Stage 3a chronic kidney disease ([facility]) Coronary artery disease involving [place] coronary artery of [place] heart without angina pectoris documented in this encounter [employer] Phone: evaldvsils note* Diagnosis Aortic valve stenosis, etiology of cardiac valve disease unspecified documented in this encounter [employer] Phone: evalkwgmkd note* Diagnosis Aortic valve stenosis, etiology of cardiac valve disease unspecified documented in this encounter [employer] Phone: evalzmrtac note* Diagnosis 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 female breast, unspecified estrogen receptor status ([facility])- Primary documented in this encounter [facility]+ SystemEvaluation note* Diagnosis Insomnia, unspecified type documented in this encounter [facility] SystemEvaluation [facility]* Diagnosis Upper respiratory tract infection, unspecified type- Primary Normal pressure hydrocephalus ([facility]) 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 ([facility]) PVD (peripheral vascular disease) ([facility]) Unspecified peripheral vascular disease 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 mellitus ([facility]) Stage 3b chronic kidney disease ([facility]) Major depressive disorder in partial remission, unspecified whether recurrent ([facility]) Essential hypertension Unspecified essential hypertension GERD without esophagitis Esophageal reflux 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 ([facility]) documented in this encounter [facility] SystemEvaluation note* Diagnosis 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 female breast, unspecified estrogen receptor status ([facility]) documented in this encounter [facility] SystemEvaluation note* Diagnosis Acute cystitis without hematuria- Primary Urge incontinence of urine Urge incontinence documented in this encounter [facility] SystemEvaluation note* Diagnosis Hypoglycemia- Primary Hypoglycemia, unspecified Need for influenza vaccination Need for prophylactic vaccination and inoculation against influenza Altered mental status, unspecified altered mental status type documented in this encounter [facility] SystemEvaluation note* Diagnosis Fabby infection of flexural skin- Primary Candidiasis of skin and nails [facility] Attachments The following attachments cannot be sent through Care Everywhere. * PCI (Percutaneous Coronary Intervention): Post-op (Swiss) [facility] [employer] Work Phone: InstructionsNot on filedocumented in this encounter [facility] SystemInstructions* Attachments The following attachments cannot be sent through Care Everywhere. * Bacterial Upper Respiratory Infection, Adult (Swiss) [facility] SystemInstructionsNot on file documented in this [facility] SystemInstructions* Attachments The following attachments cannot be sent through Care Everywhere. * Urinary Tract Infection Discharge Instructions, Adult (Swiss) documented in this encounterPro[facility] SystemInstructionsNot on file documented in this encounterL[facility] SystemInstructionsNot on file documented in this encounterL[facility] SystemInstructionsNot on file documented in this [facility] SystemInstructions* Attachments The following attachments cannot be sent through Care Everywhere. * Flu vaccine (Swiss) documented in this encounterPro[facility] SystemInstructionsNot on file documented in this encounterL[facility] SystemInstructionsNot on file documented in this [facility] Advance Directives No Advanced Directives Records FoundDocuments on File Type Date Recorded Patient Risk Developer Expl anation ACP-Advance Directive ACP-Power of Type Cutter Latest Code Status on File Code Status [...] Documents on File Type Date Recorded Patient Risk Developer Expl anation ACP-Advance Directive 12/14/2022 2:27 PM Latest Code Status on File Code Status Date Activated Date Inactivated Comments Full Code 12/07/2022 11:24 AM 12/11/2022 1:10 PM Full Code 11/24/2022 11:19 AM 11/25/2022 2:46 AM Full Code 09/28/2022 4:15 AM 09/30/2022 6:37 PM Full Code 10/15/2014 1:49 PM 10/15/2014 8:39 PM Documents on File Type Date Recorded Patient Risk Developer Expl anation ACP-Advance Directive 12/14/2022 2:27 PM Latest Code Status on File Code Status Date Activated Date Inactivated Comments Full Code 12/07/2022 11:24 AM 12/11/2022 1:10 PM Documents on File Type Date Recorded Patient Risk Developer Expl anation Durable Power of Type Cutter 10/21/2022 2:24 PM DNR Physician Order 10/21/2022 2:24 PM Living Will 01/30/2021 12:07 PM Durable Power of Type Cutter 01/30/2021 12:07 PM Living Will 01/29/2021 6:19 AM Advance Directive 01/29/2021 6:18 AM DNR Physician Order 11/03/2019 1:27 PM Latest Code Status on File Code Status Date Activated Date Inactivated Comments Full Code 03/28/2023 5:07 PM 04/01/2023 3:32 PM Code Status History Code Status Date Activated Date Inactivated Comments DNR Comfort Care Arrest (DNR-CCA) [place] 10/06/2022 8:43 AM 10/06/2022 8:41 PM Full [...] C STC MORP CARD ONLY Namrata Blair, PROCESS CHECKER - CAISSON WORKER [address] [place] [address] Referral ID Status Reason Start Date Expiration Date Visits Re quested Visits Authorized [id number] Closed 01/11/2023 04/10/2023 1 1 Specialty Diagnoses / Procedures Referred By Contac t Referred To Contact Radiology Diagnoses Aortic valve stenosis, etiology of cardiac valve disease unspecified Procedures CTA CHEST ABDOMEN PELVIS W CONTRAST Namrata Blair, PROCESS CHECKER - CAISSON WORKER [address] [place] [address] Referral ID Status Reason Start Date Expiration Date Visits Re quested Visits Authorized [id number] Closed 01/11/2023 04/10/2023 1 1 Additional Source Comments INFORMATION SOURCE (unrecogn ized section and content) DATE CREATED AUTHOR 03/27/2021 [facility] DATE CREATED AUTHOR AUTHOR'S ORGANIZ ATION 04/09/2021 [facility] DATE CREATED AUTHOR AUTHOR'S ORGANIZ ATION 04/06/2022 [facility] DATE CREATED AUTHOR AUTHOR'S ORGANIZ ATION 01/22/2023 [facility] DATE CREATED AUTHOR AUTHOR'S ORGANIZ ATION 02/12/2024 [facility] DATE CREATED AUTHOR AUTHOR'S ORGANIZ ATION 03/20/2024 [facility] DATE CREATED AUTHOR AUTHOR'S ORGANIZ ATION 08/29/2024 [facility] DATE CREATED AUTHOR AUTHOR'S ORGANIZ ATION 09/17/2024 [facility] Reason for Visit (unrecogniz ed section and content) Specialty Diagnoses / Procedures Referred By Contac t Referred To Contact [facility] [address] [place] [address] Referral ID Status Reason Start Date Expiration Date Visits Re quested Visits Authorized [id number] 1 1 Referral ID Status Reason Start Date Expiration Date Visits Re quested Visits Authorized [id number] 1 1 Specialty Diagnoses / Procedures Referred By Contac t Referred To Contact Radiology Diagnoses Aortic valve stenosis, etiology of cardiac valve disease unspecified Procedures CT CARDIAC W C STC MORP CARD ONLY Namrata Blair, PROCESS CHECKER - CAISSON WORKER [address] [place] [address] Referral ID Status Reason Start Date Expiration Date Visits Re quested Visits Authorized [id number] Closed 01/11/2023 04/10/2023 1 1 Specialty Diagnoses / Procedures Referred By Polo t Referred To Contact Radiology Diagnoses Aortic valve stenosis, etiology of cardiac valve disease unspecified Procedures CTA CHEST ABDOMEN PELVIS W Namrata Benjamin, PROCESS CHECKER - CAISSON WORKER [address] [place] [address] Referral ID Status Reason Start Date Expiration Date Visits Re quested Visits Authorized [id number] Closed 01/11/2023 04/10/2023 1 1 Reason Comments Follow-up Reason Onset Date Comments Med Refill 12/06/2023 Reason Comments Cough Nasal Congestion Reason Comments Med Refill Reason Comments incontinence Reason Onset Date Comments Transition Of Care 08/16/2024 Reason Comments Med Change Request Reason Comments tcm Care Teams (unrecognized sec tion and content) Injection Machine Operator Relationship Specialty Start Date End Date Caden Sanchez PCP - General Family Medicine 09/29/22 Injection Machine Operator Relationship Specialty Start Date End Date Caden Sanchez PCP - General Family Medicine 09/29/22 Injection Machine Operator Relationship Specialty Start Date End Date Caden Sanchez PCP - General Family Medicine 09/29/22 Injection Machine Operator Relationship Specialty Start Date End Date Caden Sanchez PCP - General Family Medicine 09/29/22 Injection Machine Operator Relationship Specialty Start Date End Date DanielCaden M PCP - General Family Medicine 09/29/22 Injection Machine Operator Relationship Specialty Start Date End Date Pam Ley, PROCESS CHECKER - CAISSON WORKER [address] [place] [phone] PCP - General 01/15/23 Injection Machine Operator Relationship Specialty Start Date End Date Pam Ley PROCESS CHECKER - CAISSON WORKER [address] [place] [id number] PCP - General 01/15/23 Injection Machine Operator Relationship Specialty Start Date End Date Pam Ley, PROCESS CHECKER-CAISSON WORKER [address] [place] [phone] PCP - General Family Medicine 09/28/23 Injection Machine Operator Relationship Specialty Start Date End Date Pam [facility]y [facility] [address] [place] [address] PCP - General Family Medicine 09/28/23 Injection Machine Operator Relationship Specialty Start Date End Date Pam Le[facility] [address] [place], [place] [id number] PCP - General Family Medicine 09/28/23 Injection Machine Operator Relationship Specialty Start Date End Date Pam [facility] [address] [place] [address] PCP - General Family Medicine 09/28/23 Injection Machine Operator Relationship Specialty Start Date End Date Pam Ley [facility] [address] [place] [address] PCP - General Family Medicine 09/28/23 Injection Machine Operator Relationship Specialty Start Date End Date [facility] [address] [place] [address] PCP - General Family Medicine 09/28/23 Injection Machine Operator Relationship Specialty Start Date End Date Pam Ley [facility] [address] [place] [address] PCP - General Family Medicine 09/28/23 Injection Machine Operator Relationship Specialty Start Date End Date Pam Ley [facility] [address] [place] [address] PCP - General Family Medicine 09/28/23 Injection Machine Operator Relationship Specialty Start Date End Date [facility] [address] [place] [address] PCP - General Family Medicine 09/28/23 Injection Machine Operator Relationship Specialty Start Date End Date Pam Ley PROCESS CHECKER[facility] [address] [place] [address] PCP - General Family Medicine 09/28/23 [...] back and for the from 3C to [facility] as needed for addt'l testing throughout the [...] BE BASED ON THE PRIMARY CLINICAL RECORDS. [facility] [employer] [facility]. provides no warranty or guarantee of the accuracy or completeness of information in this document.
[2024-10-11] MEDS: GABAPENTIN 300 MG CAPSULE PO (22:44)
[2024-10-11] MEDS: ATORVASTATIN CALCIUM 20 MG TABLET PO (22:44)
[2024-10-11 22:51] LABS: Glucometer 153 mg/dL (74-106)
[2024-10-12 05:25] VITALS: BP 150/78; PULSE 81; TEMP 36.4; O2SAT 90
[2024-10-12 06:20] LABS: Hematocrit 34.5 % (36.0-48.0); Hemoglobin 10.9 g/dL (12.0-16.0); Mean Corpuscular HGB Conc 31.6 g/dL (29.9-35.2); Mean Corpuscular Hemoglobin 27.6 pg (26.7-34.0); Mean Corpuscular Volume 87.3 fL (81.0-99.0); Mean Platelet Volume 10.5 fL (9.5-13.5); Platelet Count 297 10^3/uL (150-450); Red Blood Count 3.95 10^6/uL (4.20-5.40); Red Cell Distribution Width 14.6 % (11.0-15.0); White Blood Count 7.9 10^3/uL (4.0-11.0)
[2024-10-12 06:24] LABS: Anion Gap 14.7; BUN Creatinine Ratio 14.3; Calcium 9.8 mg/dL (8.5-10.1); Carbon Dioxide 26.3 mmol/L (21.0-32.0); Chloride 103 mmol/L (98-107); Estimated GFR (African America 38 (>=60 mL/min/1.73m^2); Estimated GFR (Non-African Ame 31 (>=60 mL/min/1.73m^2); Glucose 152 mg/dL (74-106); Sodium 140 mmol/L (136-145)
[2024-10-12 08:38] VITALS: BP 147/81; PULSE 89; TEMP 36.9; O2SAT 91
[2024-10-12] MEDS: SERTRALINE HCL 100 MG TABLET PO (08:43)
[2024-10-12] MEDS: ASPIRIN 81 MG TABLET.DR PO (08:44)
[2024-10-12] MEDS: METOPROLOL SUCCINATE 25 MG TAB.ER.24H PO (08:44)
[2024-10-12] MEDS: LISINOPRIL 5 MG TABLET PO (08:44)
[2024-10-12] MEDS: CLOPIDOGREL BISULFATE 75 MG TABLET PO (08:44)
[2024-10-12] MEDS: OMEPRAZOLE 40 MG CAPSULE.DR PO (08:44)
[2024-10-12] MEDS: GABAPENTIN 300 MG CAPSULE PO (10:19)
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
--- NOTE | 2024-10-13 13:49 | CM.DCFOLLOWU ---
1st attempt 10/13/24, no answer
== END 2024-10-12 13:49 | disposition home or self-care (01) ==
LOC: ER 19:21 → MS 20:07
PROVIDERS: Physician Assistant; Registered Nurse; Admitting Provider Internal Medicine; Emergency Provider Emergency Medicine; PCP Nurse Practitioner; Visit Provider Internal Medicine
DX: N30.00 Acute cystitis without hematuria (principal); G93.41 Metabolic encephalopathy; N18.32 Chronic kidney disease, stage 3b; I25.10 Atherosclerotic heart disease of native coronary artery without angina pectoris; I12.9 Hypertensive chronic kidney disease with stage 1 through stage 4 chronic kidney disease, or unspecified chronic kidney disease; E11.22 Type 2 diabetes mellitus with diabetic chronic kidney disease; Z79.4 Long term (current) use of insulin; N83.202 Unspecified ovarian cyst, left side; Z85.3 Personal history of malignant neoplasm of breast; Z79.899 Other long term (current) drug therapy; Z20.822 Contact with and (suspected) exposure to COVID-19
CPT/HCPCS: 36415; 51701; 51702; 70450; 71045; 74176; 80048; 80053; 81001; 82800; 83605; 84484; 85025; 85027; 85610; 87040; 87086; 87420; 87811; 93005; 96365; 96375; 99285; G0378; J0696; J2405

== ENCOUNTER 2024-10-26 06:56 | Emergency (ER) | payer MEDICARE, SELFPAY ==
[2024-10-26 06:58] VITALS: BP 146/119; PULSE 92; TEMP 36.8; O2SAT 98; BMI 31.5
--- OUTSIDE RECORDS SUMMARY | 2024-10-26 07:04 | XMS_ITS | CCD ---
Author Organization 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 Name Role Phone Caden Sanchez Primary Care [...] Caden Patel Primary Care Provider Unavaildeshawn Ley NURSING ATTENDANT - TOOL AND CUTTER GRINDER, Pam De La Rosa Primary Care Prov [...] Attending Unavailable MARITZA MIDDLETON Admitting Unavailable Ley NURSING ATTENDANT-TOOL AND CUTTER GRINDER, Pam J Primary Care Provid er LEY, PAM J Referring Unavailable LEY, PAM J Primary Care Unavailable OVITT, VALE Attending Unavailable OVITT, VALE Referring Unavailable OVITT, VALE Referring Unavailable OVITT, VALE Referring Unavailable OVITT, VALE Referring Unavailable OVITT, VALE Referring Unavailable OVITT, VALE Attending Unavailable TONI, RAMBO Bernard Referring Unavailable LEY, PAM J Primary Care Unavailable RAMBO MUÑOZ Attending Unavailable LEY, PAM J Referring Unavailable LEY, PAM J Primary Care Unavailable SOL BRICE Referring Unavailabl e LEY, PAM J Primary Care Unavailable TONI, RAMBO Bernard Referring Unavailable LEY, PAM J Primary Care [...] J Primary Care Unavailable LYDIA ZUÑIGA Attending Unavailabl LYDIA Ortiz Attending Unavailabl e LYDIA ZUÑIGA Referring Unavailabl e LEY, PAM J Primary Care Unavailable MELY LARIOS Attending Unavailable LEY, PAM J Primary Care Unavailable CHRISTINE RODRIGUEZ Admitting Unavailable LEY, PAM J Primary Care Unavailable GIOVANNY GUSTAFSON Attending Unavailable THANIA MARTINEZ Admitting Unavailable MARC RIVERO Referring Unavailable LEY, PAM J Primary Care Unavailable LEY, PAM J Primary Care Unavailable SUKHJINDER WILDE Attending Unavailable SIMEON QUILES Referring Unavailable LEY, PAM J Primary Care Unavailable LEY, PAM J Primary Care Unavailable VERONA PORRAS Attending Unavailable LEY, PAM J Attending Unavailable LEY, PAM J Referring Unavailable LEY, PAM J Primary Care Unavailable LEY, PAM J Primary Care Unavailable LEY, PAM J Referring Unavailable LEY, PAM J Primary Care Unavailable LEY, PAM J Attending Unavailable PAM LEY Referring Unavailable PAM [...] Date of Onset Reaction(s) Facility (1 source) 53590,00 Drug allergy (disorder) 01-23-2020 [facility] Rep[facility] Medications Current Medications Medication Drug [...] (DULCOLAX) EC tablet 10 mg blood-glucose meter mis (11 sources) Start: 10-11-2020 blood[place] [facility] [place]: Controlled type 2 diabetes mellitus with diabetic nephropathy, without long-term current use of insulin ([facility]) Monitor blood sugars four times daily and as needed 1 each 10/11/2020 Active Start: 10-11-2020 blood[place] [facility] [place]ications: Controlled type 2 diabetes mellitus with diabetic nephropathy, without long-term current use of insulin ([facility]) Monitor blood sugars four times daily and [...] in the morning. 09/29/2022 Active DEXCOM G6 PUMP TESTER misc (5 sources) Start: DEXCOM G6 PUMP TESTER misc 1 Device by drain unit route See Admin Instructions. 0 05/06/2023 Active DEXCOM G7 PUMP TESTER misc (3 sources) Start: DEXCOM G7 PUMP TESTER misc USE DIRECTED TO CONTINUOUSLY MONITOR BLOOD SUGAR 07/05/2024 Active DEXCOM G7 SENSOR device (6 sources) Start: DEXCOM G7 SENSOR device CHANGE SENSOR EVERY 10 DAYS, E11.65 03/22/2024 Active dextromethorphan hydrobromide 1.5 mg/ml / pyrilamine maleate 1.5 mg/ml oral solution (3 sources) Uncompetitive N-ijrduw-W-aspartate Receptor Antagonist, Sigma-1 Agonist Start: take 5 [...] nephropathy, without long-term current use of insulin ([facility]) INJECT 30 UNITS UNDER THE SKIN NIGHTLY [...] right female breast, unspecified estrogen receptor status ([facility]) TAKE 1 TABLET BY MOUTH [...] times daily. 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 Recovery(Cath) take 2 tablets by mo ut every six hours as needed for [...] injecti on 4 mg polyethylene glycol 3350 44554 mg powder for oral solution (1 source) [...] Problem Classification Problem Date Documented Date Episodic/Chronic Abdominal pain (1 source) Abdominal pain Onset: 4 Episodic Acute myocardial infarction (19 sources) Myocardial infarction; [...] coronary artery; Translations: [Atherosclerotic heart disease of [place] coronary artery without angina pectoris] Onset: 1 [...] Translations: [Lactic acidosis] Onset: 4 06-14-2024 Episodic Genitourinary symptoms and ill-defined conditions (14 [...] and screening for infectious disease (2 sources) Needs influenza immunization; Translations: [Encounter for immunization] Onset: 4 08-28-2024 Episodic Mood disorders (20 sources) Major depressive disorder, single episode, unspecified; Translations: [Recurrent major depressive episodes, moderate ] Onset: 9 Resolved: 0 07-17-2019 Chronic Mycoses (1 source) Candidal intertrigo; Translations: [Candidiasis of skin and nail] 09-06-2024 Episodic Nausea and vomiting (1 source) Nausea with vomiting, unspecified; Translations: [Nausea with vomiting, unspecified] Onset: 4 Episodic Osteoarthritis (20 sources) Primary gonarthrosis, bilateral; Translations: [Bilateral primary osteoarthritis of knee] Onset: 8 10-26-2018 Chronic Other aftercare (3 sources) residential (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; Translations: [[facility] CURRENT USE OF INSULIN] Onset: 1 Episodic Other aftercare (1 source) Other bed bug exterminator (current) drug therapy; Translations: [OTH SURGERY MANAGER CURRENT 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] Onset: 1 Episodic Other circulatory disease (6 sources) History of angioplasty; Translations: [Peripheral vascular angioplasty status with implants and grafts] Onset: 3 12-07-2022 Chronic Other endocrine disorders (1 source) Hypoglycemia; Translations: [Hypoglycemia, unspecified] 08-28-2024 Chronic Other endocrine disorders (2 sources) Hypoglycemia, unspecified; Translations: [Hypoglycemia, unspecified] Onset: 4 Chronic Other nervous system disorders (11 sources) [...] (6 sources) Hypomagnesemia; Translations: [Hypomagnesemia] Onset: 4 06-14-2024 Chronic Peripheral and visceral atherosclerosis (14 sources) [...] EXPOS COVID-19] Onset: 1 Unclassified (1 source) Painful Urination Onset: 4 Unclassified (1 source) Weakness - Generalized Onset: [...] Onset: 9 10-17-2019 Episodic Heart valve disorders (11 sources) Heart murmur; [...] sources) Insomnia; Translations: [Insomnia, unspecified] Onset: 4 01-22-2024 Episodic Residual codes; unclassified (1 source) Estrogen receptor positive status [ER+]; Translations: [Estrogen receptor positive status (ER+)] Onset: 3 Episodic Residual codes; unclassified (1 source) Insomnia, unspecified; Translations: [Insomnia, unspecified] Onset: 4 Episodic Residual codes; unclassified (1 source) Pain, unspecified; Translations: [Pain, unspecified] Onset: 4 Episodic Spondylosis; intervertebral disc disorders; other back problems (20 sources) Lumbar radiculopathy; Translations: [Radiculopathy, lumbar region] Onset: 8 05-27-2021 Episodic Unclassified (11 sources) Onset: 3 Resolved: 4 09-20-2023 Results Test Name Value Interpretation Reference Range Facility BASIC METABOLIC PANLon 10-11 Anion gap [Moles/Vol] 10 mmol/L Normal 5-15 [facility] Comment on above: Performed By: #### 1 9123-9, 1751-7, BMP, 05720-3, CBC, 2731-8, 2777-1 #### [facility] ([id number]) [address], [address] [place] [address] Calcium [Mass/Vol] 9.4 mg/dL Normal 8.5-10.5 [facility] Comment on above: Performed By: #### 1 9123-9, 1751-7, BMP, 72672-0, CBC, 2731-8, 2777-1 #### [facility] ([id number]) [address], [address] [place] [address] Chloride [Moles/Vol] 103 mmol/L Normal 98-109 [facility] Comment on above: Performed By: #### 1 9123-9, 1751-7, BMP, 98147-0, CBC, 2731-8, 2777-1 #### [facility] ([id number]) [address], [address] [place] [address] CO2 [Moles/Vol] 23 mmol/L Normal 22-32 [facility] Comment on above: Performed By: #### 1 9123-9, 175-7, BMP, 96704-5, CBC, 2731-8, 2777-1 #### [facility] ([id number]) [address], [address] [place] [address] Creatinine [Mass/Vol] 1.49 mg/dL High 0.40-1.00 [facility] Comment on above: Result Comment: METH OD TRACEABLE TO IDMS STANDARD Performed By: #### 1 9122-9, 1750-7, BMP, 45081-6, CBC, 2731-8, 2777-1 #### [facility] ([id number]) [address], [address] [place] [address] GFR/1.73 sq M.predicted among non-blacks MDRD (S/P/Bld) [Vol rate/Area] 36 mL/min/{1.73_m2} Low >59 [facility] Comment on above: Result Comment: Reported eGFR is based on the CKD-EPI 2020 equation that does not use a race coefficient. Performed By: #### 1 9123-9, 1750-7, BMP, 76441-0, CBC, 2731-8, 2777-1 #### [facility] ([id number]) [address], [address] [place] [address] Glucose [Mass/Vol] 185 mg/dL High 65-99 [facility] Comment on above: Performed By: #### 1 9123-9, 1750-7, BMP, 34073-0, CBC, 2731-8, 2777-1 #### [facility] ([id number]) [address], [address] [place] [address] Potassium [Moles/Vol] 4.5 mmol/L Normal 3.5-5.0 [facility] Comment on above: Result Comment: SPEC IMEN HEMOLYZED, RESULTS INCREASED Performed By: #### 1 9123-9, 1750-7, BMP, 04112-1, CBC, 2731-8, 2777-1 #### [facility] ([id number]) [address], [address] [place] [address] Sodium [Moles/Vol] 136 mmol/L Normal 134-146 [facility] Comment on above: Performed By: #### 1 9122-9, 1750-7, BMP, 92833-9, CBC, 2731-8, 2777-1 #### [facility] ([id number]) [address], [address] [place] [address] Urea nitrogen [Mass/Vol] 23 mg/dL Normal 5-27 [facility] Comment on above: Performed By: #### 1 9122-9, 1750-7, BMP, 58659-8, CBC, 2731-8, 2777-1 #### [facility] ([id number]) [address], [address] [place] [address] CBC AND AUTO DIFFon 20 24 ABSOLUTE BASOPHIL 0.1 X10E9/L Normal 0.0-0.2 [facility] Comment on above: Performed By: #### 1 9122-9, 7, BMP, 52454-3, CBC, 2731-8, 2777-1 #### [facility] ([id number]) [address], [facility] [address] [place] [address] ABSOLUTE NEUTROPHIL 5.5 X10E9/L Normal 1.5-6.6 [facility] Comment on above: Performed By: #### 1 9122-9, 1750-7, BMP, 10787-0, CBC, 2731-8, 2777-1 #### [facility] ([id number]) [address] [address] [place] [address] Basophils/100 WBC (Bld) 0.8 % Normal [facility] Comment on above: Performed By: #### 1 9122-9, 1751-7, BMP, 45672-5, CBC, 2730-8, 2776- #### [facility] ([id number]) [address], [facility] [address] [place] [address] Eosinophils (Bld) [#/Vol] 0.2 10*3/uL Normal 0.0-0.4 [facility] Comment on above: Performed By: #### 1 9122-9, 1751-05, BMP, 60185-5, CBC, 8, 2776- #### [facility] ([id number]) [address] [address] [place] [address] Eosinophils/100 WBC (Bld) 2.2 % Normal [facility] Comment on above: Performed By: #### 1 9122-9, 1751-05, BMP, 77181-9, CBC, 2731-06, 2776- #### [facility] ([id number]) [address] [address] Erythrocyte distribution width (RBC) [Ratio] 15.8 % High 11.5-15.0 [facility] Comment on above: Performed By: #### 1 9122-9, 1751-05, BMP, 10264-2, CBC, 2730-, 2776-11 #### [facility] ([id number]) [address] [address] Hematocrit (Bld) [Volume fraction] 32.2 % Low 35-47 [facility] Comment on above: Performed By: #### 1 9122-9, 1751-05, BMP, 14638-6, CBC, 2730-8, 2776- #### [facility] ([id number]) [address] [address] Hemoglobin (Bld) [Mass/Vol] 10.7 g/dL Low 11.7-15.5 [facility] Comment on above: Performed By: #### 1 9122-9, 1751-7, BMP, 61139-8, CBC, 273-8, 2776- #### [facility] ([id number]) [address], [facility] [address] [place] [address] Lymphocytes (Bld) [#/Vol] 1.9 10*3/uL Normal 1.0-3.5 [facility] Comment on above: Performed By: #### 1 9122-9, 1750-7, BMP, 88987-2, CBC, 2730-8, 2776- #### [facility] ([id number]) [address], [facility] [address] [place] [address] Lymphocytes/100 WBC (Bld) 22.1 % Normal [facility] Comment on above: Performed By: #### 1 9122-9, 7, BMP, 38865-6, CBC, 2730-, 2776- #### [facility] ([id number]) [address], [address] [place] [address] MCH (RBC) [Entitic mass] 28.1 pg Normal 27-34 [facility] Comment on above: Performed By: #### 1 9122-9, 7, BMP, 37378-7, CBC, 2730-8, 2776- #### [facility] ([id number]) [address], [facility] [address] [place] [address] MCHC (RBC) [Mass/Vol] 33.1 g/dL Normal 32-36 [facility] Comment on above: Performed By: #### 1 9122-9, 1750-7, BMP, 59436-1, CBC, 273-8, 2776- #### [facility] ([id number]) [address] [address] [place] [address] MCV (RBC) [Entitic vol] 85 fL Normal 80-100 [facility] Comment on above: Performed By: #### 1 9122-9, 175-7, BMP, 08437-7, CBC, 2731-8, 2777-1 #### [facility] ([id number]) [address], [address] [place] [address] Monocytes (Bld) [#/Vol] 1.0 10*3/uL High 0-0.9 [facility] Comment on above: Performed By: #### 1 23-9, 175-7, BMP, 33276-9, CBC, 2731-8, 2777- #### [facility] ([id number]) [address], [facility] [address] [place] [address] Monocytes/100 WBC (Bld) 11.6 % Normal [facility] Comment on above: Performed By: #### 1 9122-9, 1750-7, BMP, 97205-2, CBC, 2731-8, 2777- #### [facility] ([id number]) [address], [facility] [address] [place] [address] Neutrophils/100 WBC (Bld) 63.3 % Normal [facility] Comment on above: Performed By: #### 1 9122-9, 1750-7, BMP, 97034-6, CBC, 2731-8, 277- #### [facility] ([id number]) [address], [facility] [address] [place] [address] Platelet mean volume (Bld) [Entitic vol] 8.4 fL Normal 7-12 [facility] Comment on above: Performed By: #### 1 23-9, 175-7, BMP, 54597-3, CBC, 2731-8, 2777-1 #### [facility] ([id number]) [address], [address] [place] [address] Platelets (Bld) [#/Vol] 368 10*3/uL Normal 150-450 [facility] Comment on above: Performed By: #### 1 23-9, 175-7, BMP, 58040-6, CBC, 2731-8, 2777-1 #### [facility] ([id number]) [address], [address] [place] [address] RBC COUNT 3.79 X10E12/L Low 3.80-5.20 [facility] Comment on above: Performed By: #### 1 9123-9, 1751-7, BMP, 33539-6, CBC, 2731-8, 2777-1 #### [facility] ([id number]) [address], [address] [place] [address] WBC (Bld) [#/Vol] 8.7 10*3/uL Normal 4.0-11.0 [facility] Comment on above: Performed By: #### 1 9123-9, 1751-7, BMP, 26152-3, CBC, 2731-8, 2777-1 #### [facility] ([id number]) [address], [address] [place] [address] CT ABDOMEN AND PELVIS WO CON Ton 10-11-2024 CT ABDOMEN AND PELVIS WO CONT CT ABDOMEN AND PELVIS WO CONT CLINICAL INFORMATION: Abdominal/flank pain, stone suspected; Abdominal pain, acute, nonlocalized. TECHNIQUE: CT Abdomen and Pelvis without intravenous contrast. All CT scans at this facility use dose modulation, iterative reconstruction, and/or weight based dosing when appropriate to reduce radiation dose to as low as reasonably achievable. COMPARISON: 09/25/2023 FINDINGS: Visualized lung bases are unremarkable. Small hiatal hernia. The liver, gallbladder, spleen, adrenal glands, pancreas, and kidneys are unremarkable. No urinary tract stones or collecting system dilatation. No enlarged abdominal or pelvic lymph nodes. The bladder is unremarkable. There is a left ovarian cyst measuring 7.2 cm, which is unchanged. There are a few foci of air projecting within the uterus, also seen on previous study. INDUSTRIAL ENGINEERING MANAGER shunt tubing in place terminating in the pelvis. Normal appendix. The small and large bowel are of normal caliber with no evidence of bowel wall thickening. No free fluid in the abdomen or pelvis. No free intraperitoneal air. Visualized body wall structures are unremarkable. Patchy sclerotic and lytic metastatic disease throughout the osseous structures appear similar to previous study. Unchanged L1 compression deformity. IMPRESSION: * No acute abnormalities identified in the abdomen/pelvis. * Unchanged large left ovarian cyst. * Extensive osseous metastatic disease similar to previous study. * Small foci of air projecting within the uterus, also seen on previous study. Correlate for signs/symptoms of uterine fistula or endometritis. Finalized by Ryan Dominguez MD on 10/11/2024 4:33 AM Normal [facility] Troponin I.cardiac High sens itivity method [Mass/Vol]on 10-11-2024 1 HOUR TROP I, HIGH SENSITIVITY 20 ng/L High <16 [facility] Comment on above: Result Comment: Elevations of hs-Troponin may be due to causes other than myocardial ischemia. Recommend serial hs-Troponin testing be performed. For the initial evaluation and management of chest pain patients, refer to the algorithms linked below. Emergency Patient: [email or web address] Inpatient: [email or web address] Performed By: #### 1 9123-9, 1751-7, BMP, 21091-7, CBC, 2731-8, 2777-1 #### [facility] ([id number]) [address] [facility], [address] [place] [address] TROPONIN I, HIGH SENSITIVITY 21 ng/L High <16 [facility] Comment on above: Result Comment: Elevations of hs-Troponin may be due to causes other than myocardial ischemia. Recommend serial hs-Troponin testing be performed. For the initial evaluation and management of chest pain patients, refer to the algorithms linked below. Emergency Patient: [email or web address] Inpatient: [email or web address] Performed By: #### 1 9123-9, 1751-7, BMP, 39136-1, CBC, 2731-8, 2777-1 #### [facility] ([id number]) [address], [address] [place] [address] URINE CULTUREon 10-10-2024 Bacteria identified Cx Nom (U) CULTURE RESULTS MULTIPLE SPECIES PRESENT. PROBABLE COLLECTION CONTAMINATION. SUGGEST REPEAT SPECIMEN. Normal [facility] Comment on above: Performed By: #### 1 9123-9, 1751-7, BMP, 88823-1, CBC, 2731-8, 2777-1 #### [facility] ([id number]) [address], [address] [place] [address] URN MACROSCOPIC NURon 2023 BILIRUBIN MARYJO Negative Normal NEG [facility] Comment on above: Performed By: #### 1 23-9, 1751-7, BMP, 35792-6, CBC, 2731-8, 2777-1 #### [facility] ([id number]) [address], [address] [place] [address] BLOOD/HGB MARYJO Small Abnormal NEG [facility] Comment on above: Performed By: #### 1 23-9, 175-7, BMP, 56432-4, CBC, 2731-8, 2777-1 #### [facility] ([id number]) [address], [address] [place] [address] GLUCOSE MARYJO Negative Normal NEG [facility] Comment on above: Performed By: #### 1 9123-9, 1751-7, BMP, 76051-4, CBC, 2731-8, 2777-1 #### [facility] ([id number]) [address], [address] [place] [address] KETONES MARYJO Trace Abnormal NEG [facility] Comment on above: Performed By: #### 1 9123-9, 1751-7, BMP, 07271-6, CBC, 2731-8, 2777-1 #### [facility] ([id number]) [address], [address] [place] [address] LEUKOCYTE ESTERASE MARYJO Large Abnormal NEG [facility] Comment on above: Performed By: #### 1 9123-9, 1751-7, BMP, 61632-1, CBC, 2731-8, 2777-1 #### [facility] ([id number]) [address], [address] [place] [address] NITRITE MARYJO Positive Abnormal NEG [facility] Comment on above: Performed By: #### 1 9123-9, 1751-7, BMP, 82112-1, CBC, 2731-8, 2777-1 #### [facility] ([id number]) [address], [address] [place] [address] PH MARYJO 8.5 Normal 5.0-8.5 [facility] Comment on above: Performed By: #### 1 9123-9, 1751-7, BMP, 15456-2, CBC, 2731-8, 2777-1 #### [facility] ([id number]) [address], [address] [place] [address] PROTEIN MARYJO >=300 Abnormal NEG [facility] Comment on above: Performed By: #### 1 9123-9, 1751-7, BMP, 28458-4, CBC, 2731-8, 2777-1 #### [facility] ([id number]) [address], [address] [place] [address] SPECIFIC GRAVITY MARYJO 1.015 Normal 1.003-1.035 [facility] Comment on above: Performed By: #### 1 9123-9, 1751-7, BMP, 85223-0, CBC, 2731-8, 2777-1 #### [facility] ([id number]) [address], [address] [place] [address] UROBILINOGEN MARYJO 0.2 eu/dL Normal <1.1 [facility] Comment on above: Performed By: #### 1 23-9, 175-7, BMP, 29474-6, CBC, 2731-8, 277-1 #### [facility] ([id number]) [address], [address] [place] [address] CBC AND AUTO DIFFon 10-10-20 24 ABSOLUTE BASOPHIL 0.0 X10E9/L Normal 0.0-0.2 [facility] Comment on above: Performed By: #### 1 23-9, 1750-7, BMP, 72804-1, CBC, 2731-8, 2777-1 #### [facility] ([id number]) [address], [address] [place] [address] ABSOLUTE NEUTROPHIL 6.0 X10E9/L Normal 1.5-6.6 [facility] Comment on above: Performed By: #### 1 9122-9, 1750-7, BMP, 36279-5, CBC, 2731-8, 2777-1 #### [facility] ([id number]) [address], [address] [place] [address] Basophils/100 WBC (Bld) 0.3 % Normal [facility] Comment on above: Performed By: #### 1 23-9, 1750-7, BMP, 40695-9, CBC, 2731-8, 277-1 #### [facility] ([id number]) [address], [address] [place] [address] Eosinophils (Bld) [#/Vol] 0.3 10*3/uL Normal 0.0-0.4 [facility] Comment on above: Performed By: #### 1 23-9, 1750-7, BMP, 68794-3, CBC, 2731-8, 2777-1 #### [facility] ([id number]) [address], [address] [place] [address] Eosinophils/100 WBC (Bld) 2.7 % Normal [facility] Comment on above: Performed By: #### 1 9122-9, 1750-7, BMP, 53116-6, CBC, 273-8, 2776-1 #### [facility] ([id number]) [address], [facility] [address] [place] [address] Erythrocyte distribution width (RBC) [Ratio] 15.9 % High 11.5-15.0 [facility] Comment on above: Performed By: #### 1 9122-9, 1750-7, BMP, 71016-9, CBC, 2730-8, 2776- #### [facility] ([id number]) [address] [address] Hematocrit (Bld) [Volume fraction] 29.0 % Low 35-47 [facility] Comment on above: Performed By: #### 1 9122-9, 1751-05, BMP, 93657-3, CBC, 2730-8, 2776- #### [facility] ([id number]) [address] [address] [place] [address] Hemoglobin (Bld) [Mass/Vol] 9.5 g/dL Low 11.7-15.5 [facility] Comment on above: Performed By: #### 1 9122-9, 1751-05, BMP, 05540-0, CBC, 2730-8, 2776- #### [facility] ([id number]) [address] [address] [place] [address] Lymphocytes (Bld) [#/Vol] 3.0 10*3/uL Normal 1.0-3.5 [facility] Comment on above: Performed By: #### 1 9122-9, 7, BMP, 48327-7, CBC, 273-8, 277-1 #### [facility] ([id number]) [address], [address] [place] [address] Lymphocytes/100 WBC (Bld) 28.8 % Normal [facility] Comment on above: Performed By: #### 1 23-9, 1750-7, BMP, 20525-5, CBC, 273-8, 2776- #### [facility] ([id number]) [address], [address] [place] [address] MCH (RBC) [Entitic mass] 27.7 pg Normal 27-34 [facility] Comment on above: Performed By: #### 1 9122-9, 1750-7, BMP, 19563-6, CBC, 2730-8, 2776- #### [facility] ([id number]) [address], [address] [place] [address] MCHC (RBC) [Mass/Vol] 32.7 g/dL Normal 32-36 [facility] Comment on above: Performed By: #### 1 9122-9, 1750-7, BMP, 41142-8, CBC, 2730-8, 2776- #### [facility] ([id number]) [address], [address] [place] [address] MCV (RBC) [Entitic vol] 85 fL Normal 80-100 [facility] Comment on above: Performed By: #### 1 9122-9, 1750-7, BMP, 49757-4, CBC, 2730-, 2776- #### [facility] ([id number]) [address], [address] [place] [address] Monocytes (Bld) [#/Vol] 1.0 10*3/uL High 0-0.9 [facility] Comment on above: Performed By: #### 1 9122-9, 1750-7, BMP, 42142-4, CBC, 273-8, 277- #### [facility] ([id number]) [address], [address] [place] [address] Monocytes/100 WBC (Bld) 9.8 % Normal [facility] Comment on above: Performed By: #### 1 23-9, 175-7, BMP, 22363-6, CBC, 2731-8, 2777-1 #### [facility] ([id number]) [address], [address] [place] [address] Neutrophils/100 WBC (Bld) 58.4 % Normal [facility] Comment on above: Performed By: #### 1 9122-9, 1750-7, BMP, 90798-4, CBC, 273-8, 277-1 #### [facility] ([id number]) [address], [address] [place] [address] Platelet mean volume (Bld) [Entitic vol] 8.7 fL Normal 7-12 [facility] Comment on above: Performed By: #### 1 9122-9, 1750-7, BMP, 25773-5, CBC, 273-8, 2776-1 #### [facility] ([id number]) [address], [address] [place] [address] Platelets (Bld) [#/Vol] 189 10*3/uL Normal 150-450 [facility] Comment on above: Performed By: #### 1 9122-9, 1750-7, BMP, 02755-4, CBC, 273-8, 2776- #### [facility] ([id number]) [address], [address] [place] [address] RBC COUNT 3.43 X10E12/L Low 3.80-5.20 [facility] Comment on above: Performed By: #### 1 9122-9, 1750-7, BMP, 18178-4, CBC, 2731-8, 2777-1 #### [facility] ([id number]) [address], [address] [place] [address] WBC (Bld) [#/Vol] 10.2 10*3/uL Normal 4.0-11.0 [facility] Comment on above: Performed By: #### 1 9123-9, 1751-7, BMP, 64269-3, CBC, 2731-8, 2777-1 #### [facility] ([id number]) [address], [address] [place] [address] COMPREHENSIVE METABOLIC PANE Dickson 08-24-2024 Albumin [Mass/Vol] 3.0 g/dL Low 3.2-5.3 [facility] Comment on above: Performed By: #### 1 23-9, 175-7, BMP, 76571-8, CBC, 2731-8, 2777-1 #### [facility] ([id number]) [address], [address] [place] [address] ALP [Catalytic activity/Vol] 70 U/L Normal 39-130 [facility] Comment on above: Performed By: #### 1 23-9, 1750-7, BMP, 52405-8, CBC, 2731-8, 2777-1 #### [facility] ([id number]) [address], [address] [place] [address] ALT [Catalytic activity/Vol] 15 U/L Normal 0-31 [facility] Comment on above: Performed By: #### 1 23-9, 1750-7, BMP, 40341-7, CBC, 2731-8, 2777-1 #### [facility] ([id number]) [address], [address] [place] [address] Anion gap [Moles/Vol] 7 mmol/L Normal 5-15 [facility] Comment on above: Performed By: #### 1 23-9, 1751-7, BMP, 81507-7, CBC, 2731-8, 2777-1 #### [facility] ([id number]) [address], [address] [place] [address] AST [Catalytic activity/Vol] 20 U/L Normal 0-41 [facility] Comment on above: Performed By: #### 1 23-9, 1751-7, BMP, 78322-1, CBC, 2731-8, 2777-1 #### [facility] ([id number]) [address], [address] [place] [address] Bilirubin [Mass/Vol] 0.8 mg/dL Normal 0.3-1.2 [facility] Comment on above: Performed By: #### 1 9122-9, 1750-7, BMP, 47793-0, CBC, 2731-8, 2777-1 #### [facility] ([id number]) [address], [address] [place] [address] Calcium [Mass/Vol] 8.4 mg/dL Low 8.5-10.5 [facility] Comment on above: Performed By: #### 1 9122-9, 1750-7, BMP, 07240-7, CBC, 2731-8, 2777-1 #### [facility] ([id number]) [address], [address] [place] [address] Chloride [Moles/Vol] 105 mmol/L Normal 98-109 [facility] Comment on above: Performed By: #### 1 9122-9, 1750-7, BMP, 00798-6, CBC, 2731-8, 2777-1 #### [facility] ([id number]) [address], [address] [place] [address] CO2 [Moles/Vol] 24 mmol/L Normal 22-32 [facility] Comment on above: Performed By: #### 1 23-9, 1750-7, BMP, 87915-1, CBC, 2731-8, 2777-1 #### [facility] ([id number]) [address], [address] [place] [address] Creatinine [Mass/Vol] 1.36 mg/dL High 0.40-1.00 [facility] Comment on above: Result Comment: METH OD TRACEABLE TO IDMS STANDARD Performed By: #### 1 9122-9, 1750-7, BMP, 71182-4, CBC, 2731-8, 2776-1 #### [facility] ([id number]) [address], [address] [place] [address] GFR/1.73 sq M.predicted among non-blacks MDRD (S/P/Bld) [Vol rate/Area] 40 mL/min/{1.73_m2} Low >59 [facility] Comment on above: Result Comment: Reported eGFR is based on the CKD-EPI 2020 equation that does not use a race coefficient. Performed By: #### 1 9122-9, 1750-7, BMP, 39883-6, CBC, 2730-8, 2776-1 #### [facility] ([id number]) [address], [address] [place] [address] Glucose [Mass/Vol] 215 mg/dL High 65-99 [facility] Comment on above: Performed By: #### 1 9122-9, 1750-7, BMP, 98556-2, CBC, 2730-8, 2776-1 #### [facility] ([id number]) [address], [address] [place] [address] Potassium [Moles/Vol] 4.7 mmol/L Normal 3.5-5.0 [facility] Comment on above: Performed By: #### 1 9122-9, 1750-7, BMP, 80082-6, CBC, 273-8, 2776-1 #### [facility] ([id number]) [address], [address] [place] [address] Protein [Mass/Vol] 6.0 g/dL Normal 6.0-8.0 [facility] Comment on above: Performed By: #### 1 9122-9, 1751-7, BMP, 20974-2, CBC, 2731-8, 2777-1 #### [facility] ([id number]) [address], [address] [place] [address] Sodium [Moles/Vol] 136 mmol/L Normal 134-146 [facility] Comment on above: Performed By: #### 1 23-9, 1750-7, BMP, 18531-4, CBC, 2731-8, 277-1 #### [facility] ([id number]) [address], [address] [place] [address] Urea nitrogen [Mass/Vol] 16 mg/dL Normal 5-27 [facility] Comment on above: Performed By: #### 1 23-9, 1750-7, BMP, 30578-9, CBC, 2731-8, 2777-1 #### [facility] ([id number]) [address], [facility] [address] [place] [address] Glucose Glucometer (BldC) [M ass/Vol]on 08-24-2024 Glucose [Mass/Vol] 358 mg/dL High 65-99 [facility] MAGNESIUMon 08-24-2024 Magnesium [Mass/Vol] 2.5 mg/dL Normal 1.8-2.6 [facility] Comment on above: Performed By: #### 1 23-9, 1750-7, BMP, 73033-9, CBC, 2731-8, 2776-1 #### [facility] ([id number]) [address], [address] [place] [address] BLOOD CULTUREon 08-23-2024 Bacteria identified Aer cx Nom (Bld) SPECIMEN NOTES L HAND CULTURE RESULTS NO GROWTH 5 DAYS Normal [facility] Comment on above: Performed By: #### 1 23-9, 175-7, BMP, 28971-2, CBC, 2731-8, 2777-1 #### [facility] ([id number]) [address], [address] [place] [address] Bacteria identified Aer cx Nom (Bld) SPECIMEN NOTES R HAND SOV CULTURE RESULTS NO GROWTH 5 DAYS Normal [facility] Comment on above: Performed By: #### 1 9123-9, 1751-7, BMP, 74889-3, CBC, 2731-8, 2777-1 #### [facility] ([id number]) [address], [address] [place] [address] CBC AND AUTO DIFFon 08-23-20 24 Band form neutrophils/100 WBC (Bld) 1.0 % Normal [facility] Comment on above: Performed By: #### C BCA, BMP #### [facility] ([id number]) [address] [place] [address] #### HA1C #### [facility] ([id number]) [address], [address] [place] [address] Erythrocyte distribution width (RBC) [Ratio] 15.7 % High 11.5-15.0 [facility] Comment on above: Performed By: #### C BCA, BMP #### [facility] ([id number]) [address] [place] [address] #### HA1C #### [facility] ([id number]) [address], [address] [place] [address] Hematocrit (Bld) [Volume fraction] 36.1 % Normal 35-47 [facility] Comment on above: Performed By: #### C BCA, BMP #### [facility] ([id number]) [address] [place] [address] #### HA1C #### [facility] ([id number]) [address], [address] [place] [address] Hemoglobin (Bld) [Mass/Vol] 11.5 g/dL Low 11.7-15.5 [facility] Comment on above: Performed By: #### C BCA, BMP #### [facility] ([id number]) [address] [place] [address] #### HA1C #### [facility] ([id number]) [address], [address] [place] [address] LYMPHOCYTE, ATYPICAL 1.0 % Normal [facility] Comment on above: Performed By: #### C BCA, BMP #### [facility] ([id number]) [address] [place] [address] #### HA1C #### [facility] ([id number]) [address] [facility], [address] [place] [address] Lymphocytes (Bld) [#/Vol] 2.6 10*3/uL Normal 1.0-3.5 [facility] Comment on above: Performed By: #### C BCA, BMP #### [facility] ([id number]) [address] [place] [address] #### HA1C #### [facility] ([id number]) [address] [facility], [address] [place] [address] Lymphocytes/100 WBC (Bld) 18.0 % Normal [facility] Comment on above: Performed By: #### C BCA, BMP #### [facility] ([id number]) [address] [place] [address] #### HA1C #### [facility] ([id number]) [address] [facility], [address] [place] [address] MCH (RBC) [Entitic mass] 27.2 pg Normal 27-34 [facility] Comment on above: Performed By: #### C BCA, BMP #### [facility] ([id number]) [address] [place] [address] #### HA1C #### [facility] ([id number]) [address] [place] [address] MCHC (RBC) [Mass/Vol] 32.0 g/dL Normal 32-36 [facility] Comment on above: Performed By: #### C BCA, BMP #### [facility] ([id number]) [address] [place] [address] #### HA1C #### [facility] ([id number]) [address], [address] [place] [address] MCV (RBC) [Entitic vol] 85 fL Normal 80-100 [facility] Comment on above: Performed By: #### C BCA, BMP #### [facility] ([id number]) [address] [place] [address] #### HA1C #### [facility] ([id number]) [address], [address] [place] [address] Monocytes (Bld) [#/Vol] 0.8 10*3/uL Normal 0-0.9 [facility] Comment on above: Performed By: #### C NATIVIDAD, BMP #### [facility] ([id number]) [address] [place] [address] #### HA1C #### [facility] ([id number]) [address] [place] [address] Monocytes/100 WBC (Bld) 6.0 % Normal [facility] Comment on above: Performed By: #### C BCA, BMP #### [facility] ([id number]) [address] [place] [address] #### HA1C #### [facility] ([id number]) [address], [address] [place] [address] MYELOCYTE 1.0 % Normal [facility] Comment on above: Performed By: #### C BCA, BMP #### [facility] ([id number]) [address] [place] [address] #### HA1C #### [facility] ([id number]) [address], [address] [place] [address] Neutrophils (Bld) [#/Vol] 10.5 10*3/uL High 1.5-6.6 [facility] Comment on above: Performed By: #### Renita HENSON, BMP #### [facility] ([id number]) [address] [place] [address] #### HA1C #### [facility] ([id number]) [address] [facility], [address] [place] [address] OVALOCYTE 1+ Abnormal NONE [facility] Comment on above: Performed By: #### Renita HENSON, BMP #### [facility] ([id number]) [address] [place] [address] #### HA1C #### [facility] ([id number]) [address] [facility], [address] [place] [address] Platelet mean volume (Bld) [Entitic vol] 8.3 fL Normal 7-12 [facility] Comment on above: Performed By: #### Renita HENSON, BMP #### [facility] ([id number]) [address] [place] [address] 16034 #### HA1C #### [facility] ([id number]) [address], [address] [place] [address] Platelets (Bld) [#/Vol] 262 10*3/uL Normal 150-450 [facility] Comment on above: Performed By: #### Renita HENSON, BMP #### [facility] ([id number]) [address] [place] [address] 13572 #### HA1C #### [facility] ([id number]) [address], [address] [place] [address] RBC COUNT 4.25 X10E12/L Normal 3.80-5.20 [facility] Comment on above: Performed By: #### Renita BCA, BMP #### [facility] ([id number]) [address] [place] [address]40[address] #### HA1C #### [facility] ([id number]) [address], [address] [place] [address] SEG NEUTROPHIL 73.0 % Normal [facility] Comment on above: Performed By: #### Renita BCA, BMP #### [facility] ([id number]) [address] [place] [address] 33002 #### HA1C #### [facility] ([id number]) [address] [facility], [address] [place] [address] TOXIC GRANULATION 1+ Abnormal NONE [facility] Comment on above: Performed By: #### C BCA, BMP #### [facility] ([id number]) [address] [place] [address] 27852 #### HA1C #### [facility] ([id number]) [address], [address] [place] [address] WBC (Bld) [#/Vol] 14.0 10*3/uL High 4.0-11.0 [facility] Comment on above: Performed By: #### C BCA, BMP #### [facility] ([id number]) [address] [place] [address] 58766 #### HA1C #### [facility] ([id number]) [address] [place] [address] CK [Catalytic activity/Vol]o n 08-23-2024 CPK 48 U/L Normal 24-170 [facility] Comment on above: Performed By: #### 1 9123-9, 1751-7, BMP, 97862-8, CBC, 2731-8, 2777-1 #### [facility] ([id number]) [address], [address] [place] [address] COMPREHENSIVE METABOLIC PANE Dickson 08-23-2024 Albumin [Mass/Vol] 3.8 g/dL Normal 3.2-5.3 [facility] Comment on above: Performed By: #### C BCA, BMP #### [facility] ([id number]) [address] [place] [address] 64366 #### HA1C #### [facility] ([id number]) [address], [address] [place] [address] ALP [Catalytic activity/Vol] 88 U/L Normal 39-130 [facility] Comment on above: Performed By: #### C BCA, BMP #### [facility] ([id number]) [address] [place] [address] 64870 #### HA1C #### [facility] ([id number]) [address] [place] [address] ALT [Catalytic activity/Vol] 19 U/L Normal 0-31 [facility] Comment on above: Performed By: #### C BCA, BMP #### [facility] ([id number]) [address] [place] [address] 08654 #### HA1C #### [facility] ([id number]) [address] [place] [address] Anion gap [Moles/Vol] 11 mmol/L Normal 5-15 [facility] Comment on above: Performed By: #### C BCA, BMP #### [facility] ([id number]) [address] [place] [address] 30892 #### HA1C #### [facility] ([id number]) [address] [place] [address] AST [Catalytic activity/Vol] 20 U/L Normal 0-41 [facility] Comment on above: Performed By: #### C BCA, BMP #### [facility] ([id number]) [address] [place] [address] 70979 #### HA1C #### [facility] ([id number]) [address] [place] [address] Bilirubin [Mass/Vol] 0.6 mg/dL Normal 0.3-1.2 [facility] Comment on above: Performed By: #### C BCA, BMP #### [facility] ([id number]) [address] [place] [address] 92000 #### HA1C #### [facility] ([id number]) [address] [place] [address] Calcium [Mass/Vol] 8.8 mg/dL Normal 8.5-10.5 [facility] Comment on above: Performed By: #### C BCA, BMP #### [facility] ([id number]) [address] [place] [address] 07565 #### HA1C #### [facility] ([id number]) [address] [place] [address] Chloride [Moles/Vol] 102 mmol/L Normal 98-109 [facility] Comment on above: Performed By: #### C BCA, BMP #### [facility] ([id number]) [address] [place] [address] 65310 #### HA1C #### [facility] ([id number]) [address] [place] [address] CO2 [Moles/Vol] 25 mmol/L Normal 22-32 [facility] Comment on above: Performed By: #### C BCA, BMP #### [facility] ([id number]) [address] [place] [address] 71207 #### HA1C #### [facility] ([id number]) [address] [place] [address] Creatinine [Mass/Vol] 1.29 mg/dL High 0.40-1.00 [facility] Comment on above: Result Comment: METH OD TRACEABLE TO IDMS STANDARD Performed By: #### C [place]IV[place]AD, BMP #### [facility] ([id number]) [address] [place] [address] #### HA1C #### [facility] ([id number]) [address], [address] [place] [address] GFR/1.73 sq M.predicted among non-blacks MDRD (S/P/Bld) [Vol rate/Area] 42 mL/min/{1.73_m2} Low >59 [facility] Comment on above: Result Comment: Reported eGFR is based on the CKD-EPI 2020 equation that does not use a race coefficient. Performed By: #### C NATIVIDAD, BMP #### [facility] ([id number]) [address] [place] [address] #### HA1C #### [facility] ([id number]) [address], [address] [place] [address] Glucose [Mass/Vol] 79 mg/dL Normal 65-99 [facility] Comment on above: Performed By: #### C BCA, BMP #### [facility] ([id number]) [address] [place] [address] #### HA1C #### [facility] ([id number]) [address], [address] [place] [address] Potassium [Moles/Vol] 3.3 mmol/L Low 3.5-5.0 [facility] Comment on above: Performed By: #### C BCA, BMP #### [facility] ([id number]) [address] [place] [address] #### HA1C #### [facility] ([id number]) [address], [address] [place] [address] Protein [Mass/Vol] 7.5 g/dL Normal 6.0-8.0 [facility] Comment on above: Performed By: #### C BCA, BMP #### [facility] ([id number]) [address] [place] [address] #### HA1C #### [facility] ([id number]) [address], [address] [place] [address] Sodium [Moles/Vol] 138 mmol/L Normal 134-146 [facility] Comment on above: Performed By: #### C BCA, BMP #### [facility] ([id number]) [address] [place] [id number] #### HA1C #### [facility] ([id number]) [address], [address] [place] [address] Urea nitrogen [Mass/Vol] 22 mg/dL Normal 5-27 [facility] Comment on above: Performed By: #### C BCA, BMP #### [facility] ([id number]) [address] [place] [address] #### HA1C #### [facility] ([id number]) [address], [address] [place] [address] CT BRAIN WO CONTon 4 CT BRAIN [...] Christy MD on 08/23/2024 6:02 AM Normal [facility] ETHANOLon 08-23-2024 Ethanol [Mass/Vol] mg/dL Normal 0.00-0.08 [facility] Comment on above: Result Comment: This report is intended for use in clinical monitoring or management of patients. Performed By: #### 1 9123-9, 1751-7, BMP, 97094-0, CBC, 2731-8, 2777-1 #### [facility] ([id number]) [address], [address] [place] [address] Glucose Glucometer (BldC) [M ass/Vol]on 08-23-2024 Glucose [Mass/Vol] 267 mg/dL High 65-99 [facility] Glucose [Mass/Vol] 279 mg/dL High 65-99 [facility] Glucose [Mass/Vol] 298 mg/dL High 65-99 [facility] Glucose [Mass/Vol] 235 mg/dL High 65-99 [facility] Glucose [Mass/Vol] 141 mg/dL High 65-99 [facility] Glucose [Mass/Vol] 101 mg/dL High 65-99 [facility] Glucose [Mass/Vol] 83 mg/dL Normal 65-99 [facility] Glucose [Mass/Vol] 93 mg/dL Normal 65-99 [facility] Glucose [Mass/Vol] 144 mg/dL High 65-99 [facility] Glucose [Mass/Vol] 61 mg/dL Low 65-99 [facility] Glucose [Mass/Vol] 82 mg/dL Normal 65-99 [facility] Glucose [Mass/Vol] 176 mg/dL High 65-99 [facility] Glucose [Mass/Vol] 85 mg/dL Normal 65-99 [facility] Glucose [Mass/Vol] 91 mg/dL Normal 65-99 [facility] Glucose [Mass/Vol] 109 mg/dL High 65-99 [facility] Glucose [Mass/Vol] 55 mg/dL Low 65-99 [facility] LIPASEon 08-23-2024 Lipase [Catalytic activity/Vol] 30 U/L Normal 17-40 [facility] Comment on above: Performed By: #### 1 9123-9, 1751-7, BMP, 54895-5, CBC, 2731-8, 2777-1 #### [facility] ([id number]) [address], [address] [place] [address] Lactate (P obed) [Moles/Vol]o n 08-23-2024 Lactate [Moles/Vol] 2.0 mmol/L Normal 0.4-2.0 [facility] Comment on above: Performed By: #### 1 9123-9, 175-7, BMP, 99661-0, CBC, 2731-8, 2777-1 #### [facility] ([id number]) [address], [address] [place] [address] LACTATE W/REFLEX 2.9 mmol/L High 0.4-2.0 [facility] Comment on above: Performed By: #### 1 9123-9, 1750-7, BMP, 88834-1, CBC, 2731-8, 2777-1 #### [facility] ([id number]) [address], [address] [place] [address] MAGNESIUMon 08-23-2024 Magnesium [Mass/Vol] 2.7 mg/dL High 1.8-2.6 [facility] Comment on above: Performed By: #### 1 9123-9, 1750-7, BMP, 43855-1, CBC, 273-8, 2776-1 #### [facility] ([id number]) [address], [address] [place] [address] Magnesium [Mass/Vol] 1.6 mg/dL Low 1.8-2.6 [facility] Comment on above: Performed By: #### C BCA, BMP #### [facility] ([id number]) [address] [place] [address], [place] [address] #### HA1C #### [facility] ([id number]) [address], [address] [place] [address] Myoglobin [Mass/Vol]on 08-23 SERUM MYOGLOBIN 97.6 ng/mL High 14.3-65.8 [facility] Comment on above: Performed By: #### 1 9122-9, 1750-7, BMP, 23873-7, CBC, 2730-8, 2776-1 #### [facility] ([id number]) [address], [address] [place] [address] Natriuretic peptide B [Mass/ Vol]on 08-23-2024 Natriuretic peptide B (Bld) [Mass/Vol] 66 pg/mL Normal <100.0 [facility] Comment on above: Performed By: #### 1 9123-9, 1750-7, BMP, 32105-1, CBC, 2730-8, 2776-1 #### [facility] ([id number]) [address], [address] [place] [address] POTASSIUMon 08-23-2024 Potassium [Moles/Vol] 5.4 mmol/L High 3.5-5.0 [facility] Comment on above: Performed By: #### 1 91-9, 1750-7, BMP, 36116-4, CBC, 273-8, 2776-1 #### [facility] ([id number]) [address], [address] [place] [address] PROTIME AND INRon 08-23-2024 INR Coag (PPP) [Relative time] 1.0 {INR} Normal 0.8-1.1 [facility] Comment on above: Performed By: #### 1 9123-9, 1751-7, BMP, 98831-1, CBC, 2731-8, 2777-1 #### [facility] ([id number]) [address], [address] [place] [address] PT Coag (PPP) [Time] 11.7 s Normal 9.8-13.2 [facility] Comment on above: Result Comment: NEW REFERENCE RANGE Performed By: #### 1 9123-9, 1751-7, BMP, 54290-3, CBC, 2731-8, 2777-1 #### [facility] ([id number]) [address], [address] [place] [address] THYROID PROFILEon 08-23-2024 Free T4 [Mass/Vol] 1.05 ng/dL Normal 0.61-1.60 [facility] Comment on above: Performed By: #### 1 9123-9, 1751-7, BMP, 24372-4, CBC, 2731-8, 2777-1 #### [facility] ([id number]) [address], [address] [place] [address] TSH 0.38 uIU/mL Low 0.49-4.67 [facility] Comment on above: Performed By: #### 1 9123-9, 1751-7, BMP, 21649-2, CBC, 2731-8, 2777-1 #### [facility] ([id number]) [address] [place] [address], [address] [place] [address] Troponin I.cardiac High sens itivity method [Mass/Vol]on 08-23-2024 3 HOUR TROP I, HIGH SENSITIVITY 112 ng/L High <16 [facility] Comment on above: Result Comment: Elevations of hs-Troponin may be due to causes other than myocardial ischemia. Recommend serial hs-Troponin testing be performed. For the initial evaluation and management of chest pain patients, refer to the algorithms linked below. Emergency Patient: [email or web address] Inpatient: [email or web address] Performed By: #### 1 9123-9, 1751-7, BMP, 71359-6, CBC, 2731-8, 2777-1 #### [facility] ([id number]) [address], [address] [place] [address] 1 HOUR TROP I, HIGH SENSITIVITY 72 ng/L High <16 [facility] Comment on above: Result Comment: Elevations of hs-Troponin may be due to causes other than myocardial ischemia. Recommend serial hs-Troponin testing be performed. For the initial evaluation and management of chest pain patients, refer to the algorithms linked below. Emergency Patient: [email or web address] Inpatient: [email or web address] Performed By: #### 1 9123-9, 1751-7, BMP, 71903-7, CBC, 2731-8, 2777-1 #### [facility] ([id number]) [address], [address] [place] [address] TROPONIN I, HIGH SENSITIVITY 45 ng/L High <16 [facility] Comment on above: Result Comment: Elevations of hs-Troponin may be due to causes other than myocardial ischemia. Recommend serial hs-Troponin testing be performed. For the initial evaluation and management of chest pain patients, refer to the algorithms linked below. Emergency Patient: [email or web address] Inpatient: [email or web address] Performed By: #### 1 9123-9, 1751-7, BMP, 16319-2, CBC, 2731-8, 2777-1 #### [facility] ([id number]) [address], [address] [place] [address] URINE CULTUREon 08-23-2024 Bacteria identified Cx Nom (U) CULTURE RESULTS NO GROWTH AT <1000 CFU/mL Normal [facility] Comment on above: Performed By: #### 1 23-9, 1751-7, BMP, 87978-8, CBC, 2731-8, 2777-1 #### [facility] ([id number]) [address], [address] [place] [address] URN MACROSCOPIC NURon 2023 BILIRUBIN MARYJO Negative Normal NEG [facility] Comment on above: Performed By: #### 1 23-9, 1751-7, BMP, 22865-4, CBC, 2731-8, 2777-1 #### [facility] ([id number]) [address], [address] [place] [address] BLOOD/HGB MARYJO Negative Normal NEG [facility] Comment on above: Performed By: #### 1 9123-9, 1751-7, BMP, 65234-2, CBC, 2731-8, 2777-1 #### [facility] ([id number]) [address], [address] [place] [address] GLUCOSE MARYJO 100 mg/dL Abnormal NEG [facility] Comment on above: Performed By: #### 1 9123-9, 1751-7, BMP, 51325-1, CBC, 2731-8, 2777-1 #### [facility] ([id number]) [address], [address] [place] [address] KETONES MARYJO Negative Normal NEG [facility] Comment on above: Performed By: #### 1 9123-9, 1751-7, BMP, 14776-8, CBC, 2731-8, 2777-1 #### [facility] ([id number]) [address], [address] [place] [address] LEUKOCYTE ESTERASE MARYJO Negative Normal NEG [facility] Comment on above: Performed By: #### 1 9123-9, 1751-7, BMP, 35198-1, CBC, 2731-8, 2777-1 #### [facility] ([id number]) [address], [address] [place] [address] NITRITE MARYJO Negative Normal NEG [facility] Comment on above: Performed By: #### 1 9123-9, 1751-7, BMP, 50482-9, CBC, 2731-8, 2777-1 #### [facility] ([id number]) [address], [address] [place] [address] PH MARYJO 6.5 Normal 5.0-8.5 [facility] Comment on above: Performed By: #### 1 9123-9, 1751-7, BMP, 42404-0, CBC, 2731-8, 2777-1 #### [facility] ([id number]) [address], [address] [place] [address] PROTEIN MARYJO Negative Normal NEG [facility] Comment on above: Performed By: #### 1 9123-9, 1751-7, BMP, 85401-8, CBC, 2731-8, 2777-1 #### [facility] ([id number]) [address], [address] [place] [address] SPECIFIC GRAVITY MARYJO 1.015 Normal 1.003-1.035 [facility] Comment on above: Performed By: #### 1 23-9, 1751-7, BMP, 43931-1, CBC, 2731-8, 2777-1 #### [facility] ([id number]) [address], [address] [place] [address] UROBILINOGEN MARYJO 0.2 eu/dL Normal <1.1 [facility] Comment on above: Performed By: #### 1 23-9, 175-7, BMP, 33421-2, CBC, 2731-8, 2777-1 #### [facility] ([id number]) [address], [address] [place] [address] XR CHEST 1 VWon 08-23-2024 XR CHEST [...] Christy MD on 08/23/2024 6:05 AM Normal [facility] aPTT Coag (PPP) [Time]on aPTT Coag (Bld) [Time] 24 s Low 26-37 [facility] Comment on above: Result Comment: NEW REFERENCE RANGE Performed By: #### 1 23-9, 1750-7, BMP, 75799-8, CBC, 2731-8, 2777-1 #### [facility] ([id number]) [address], [address] [place] [address] CBC AND AUTO DIFFon 08-14-20 24 ABSOLUTE BASOPHIL 0.0 X10E9/L Normal 0.0-0.2 [facility] Comment on above: Performed By: #### C BCA, LIVR, CMP, 65193-6 ####[facility] ([id number])[address] [place] [address] [place] [address] ABSOLUTE NEUTROPHIL 3.4 X10E9/L Normal 1.5-6.6 [facility] Comment on above: Performed By: #### C BCA, LIVR, CMP, 83526-0 ####[facility] ([id number])[address] [place] [address] Basophils/100 WBC (Bld) 0.2 % Normal [facility] Comment on above: Performed By: #### C BCA, LIVR, CMP, ####[facility] ([id number])[address] [place] [address] Eosinophils (Bld) [#/Vol] 0.0 10*3/uL Normal 0.0-0.4 [facility] Comment on above: Performed By: #### C BCA, LIVR, CMP, ####[facility] ([id number])[address] [place] [address] Eosinophils/100 WBC (Bld) 0.0 % Normal [facility] Comment on above: Performed By: #### C BCA, LIVR, CMP, ####[facility] ([id number])[address] [place] [address] Erythrocyte distribution width (RBC) [Ratio] 15.6 % High 11.5-15.0 [facility] Comment on above: Performed By: #### C BCA, LIVR, CMP, ####[facility] ([id number])[address] [place] [address] Hematocrit (Bld) [Volume fraction] 30.5 % Low 35-47 [facility] Comment on above: Performed By: #### C BCA, LIVR, CMP, ####[facility] ([id number])[address] [place] [address] Hemoglobin (Bld) [Mass/Vol] 9.9 g/dL Low 11.7-15.5 [facility] Comment on above: Performed By: #### C BCA, LIVR, CMP, ####[facility] ([id number])[address] [place] [address] Lymphocytes (Bld) [#/Vol] 1.9 10*3/uL Normal 1.0-3.5 [facility] Comment on above: Performed By: #### C BCA, LIVR, CMP, ####[facility] ([id number])[address] [place] [address] Lymphocytes/100 WBC (Bld) 29.8 % Normal [facility] Comment on above: Performed By: #### C BCA, LIVR, CMP, ####[facility] ([id number])[address] [place] [address] MCH (RBC) [Entitic mass] 27.6 pg Normal 27-34 [facility] Comment on above: Performed By: #### Renita BCA, LIVR, CMP, ####[facility] ([id number])[address] [place] [address] MCHC (RBC) [Mass/Vol] 32.5 g/dL Normal 32-36 [facility] Comment on above: Performed By: #### C BCA, LIVR, CMP, ####[facility] ([id number])[address] [place] [address] MCV (RBC) [Entitic vol] 85 fL Normal 80-100 [facility] Comment on above: Performed By: #### C BCA, LIVR, CMP, ####[facility] ([id number])[address], [place] [address] Monocytes (Bld) [#/Vol] 1.0 10*3/uL High 0-0.9 [facility] Comment on above: Performed By: #### Renita BCA, LIVR, CMP, 43591-4 ####[facility] ([id number])[address] [place] [address] Monocytes/100 WBC (Bld) 15.5 % Normal [facility] Comment on above: Performed By: #### Renita BCA, LIVR, CMP, ####[facility] ([id number])[address] [place] [address] Neutrophils/100 WBC (Bld) 54.5 % Normal [facility] Comment on above: Performed By: #### Renita BCA, LIVR, CMP, ####[facility] ([id number])[address] [place] [address] [place] [address] Platelet mean volume (Bld) [Entitic vol] 8.3 fL Normal 7-12 [facility] Comment on above: Performed By: #### Renita HENSON, LIVR, CMP, ####[facility] ([id number])[address] [place] [address] Platelets (Bld) [#/Vol] 228 10*3/uL Normal 150-450 [facility] Comment on above: Performed By: #### Renita BCA, LIVR, CMP, ####[facility] ([id number])[address] [place] [address] [place] [address] RBC COUNT 3.60 X10E12/L Low 3.80-5.20 [facility] Comment on above: Performed By: #### Renita BCA, LIVR, CMP, ####[facility] ([id number])[address] [place] [address] [place] [address] WBC (Bld) [#/Vol] 6.3 10*3/uL Normal 4.0-11.0 [facility] Comment on above: Performed By: #### C BCA, LIVR, CMP, 55910-7 ####[facility] ([id number])[address] [place] [address] COMPREHENSIVE METABOLIC PANE Dickson 08-14-2024 Albumin [Mass/Vol] 3.4 g/dL Normal 3.2-5.3 [facility] Comment on above: Performed By: #### C BCA, LIVR, CMP, 22986-5 ####[facility] ([id number])[address] [place] [address] ALP [Catalytic activity/Vol] 70 U/L Normal 39-130 [facility] Comment on above: Performed By: #### C BCA, LIVR, CMP, ####[facility] ([id number])[address] [place] [address] [place] [address] ALT [Catalytic activity/Vol] 14 U/L Normal 0-31 [facility] Comment on above: Performed By: #### C BCA, LIVR, CMP, 23130-8 ####[facility] ([id number])[address] [place] [address] Anion gap [Moles/Vol] 10 mmol/L Normal 5-15 [facility] Comment on above: Performed By: #### C BCA, LIVR, CMP, 83633-8 ####[facility] ([id number])[address] [place] [address] AST [Catalytic activity/Vol] 19 U/L Normal 0-41 [facility] Comment on above: Performed By: #### C BCA, LIVR, CMP, 89180-0 ####[facility] ([id number])[address] [place] [address] Bilirubin [Mass/Vol] 0.4 mg/dL Normal 0.3-1.2 [facility] Comment on above: Performed By: #### C BCA, LIVR, CMP, 13656-2 ####[facility] ([id number])[address] [place] [address] Calcium [Mass/Vol] 9.0 mg/dL Normal 8.5-10.5 [facility] Comment on above: Performed By: #### C BCA, LIVR, CMP, 50714-2 ####[facility] ([id number])[address] [place] [address] Chloride [Moles/Vol] 103 mmol/L Normal 98-109 [facility] Comment on above: Performed By: #### C BCA, LIVR, CMP, 37647-1 ####[facility] ([id number])[address] [place] [address] CO2 [Moles/Vol] 22 mmol/L Normal 22-32 [facility] Comment on above: Performed By: #### C BCA, LIVR, CMP, 54846-9 ####[facility] ([id number])[address] [place] [address] Creatinine [Mass/Vol] 1.39 mg/dL High 0.40-1.00 [facility] Comment on above: Result Comment: METH OD TRACEABLE TO IDMS STANDARD Performed By: #### C BCA, LIVR, CMP, 64161-6 ####[facility] ([id number])[address] [place] [address] GFR/1.73 sq M.predicted among non-blacks MDRD (S/P/Bld) [Vol rate/Area] 39 mL/min/{1.73_m2} Low >59 [facility] Comment on above: Result Comment: Reported eGFR is based on the CKD-EPI 2020 equation that does not use a race coefficient. Performed By: #### C BCA, LIVR, CMP, ####[facility] ([id number])[address] [place] [address] [place] [address] Glucose [Mass/Vol] 102 mg/dL High 65-99 [facility] Comment on above: Performed By: #### C BCA, LIVR, CMP, 26326-7 ####[facility] ([id number])[address] [place] [address]99 Potassium [Moles/Vol] 4.3 mmol/L Normal 3.5-5.0 [facility] Comment on above: Performed By: #### C BCA, LIVR, CMP, 17576-3 ####[facility] ([id number])[address] [place] [address] Protein [Mass/Vol] 7.0 g/dL Normal 6.0-8.0 [facility] Comment on above: Performed By: #### C BCA, LIVR, CMP, 60515-5 ####[facility] ([id number])[address] [place] [address] Sodium [Moles/Vol] 135 mmol/L Normal 134-146 [facility] Comment on above: Performed By: #### C BCA, LIVR, CMP, 82345-7 ####[facility] ([id number])[address] [place] [address]58[address] Urea nitrogen [Mass/Vol] 40 mg/dL High 5-27 [facility] Comment on above: Performed By: #### C BCA, LIVR, CMP, 12288-3 ####[facility] ([id number])[address] [place] [address] Glucose Glucometer (BldC) [M ass/Vol]on 08-14-2024 Glucose [Mass/Vol] 372 mg/dL High 65-99 [facility] Glucose [Mass/Vol] 204 mg/dL High 65-99 [facility] LIVER PANELon 08-14-2024 Bilirubin.indirect [Mass/Vol] mg/dL Normal 0.0-0.4 [facility] Comment on above: Performed By: #### C BCA, LIVR, CMP, 15679-0 ####[facility] ([id number])[address] [place] [address] MAGNESIUMon 08-14-2024 Magnesium [Mass/Vol] 1.8 mg/dL Normal 1.8-2.6 [facility] Comment on above: Performed By: #### C BCA, BMP #### [facility] ([id number]) [address] [place] [address] #### HA1C #### [facility] ([id number]) [address] [place] [address] CBC AND AUTO DIFFon 08-13-20 ABSOLUTE BASOPHIL 0.0 X10E9/L Normal 0.0-0.2 [facility] Comment on above: Performed By: #### 1 9123-9, 1750-7, BMP, 85450-5, CBC, 2731-8, 2777-1 #### [facility] ([id number]) [address], [address] [place] [address] ABSOLUTE NEUTROPHIL 4.4 X10E9/L Normal 1.5-6.6 [facility] Comment on above: Performed By: #### 1 23-9, 1750-7, BMP, 02280-6, CBC, 2731-8, 2777-1 #### [facility] ([id number]) [address], [address] [place] [address] Basophils/100 WBC (Bld) 0.2 % Normal [facility] Comment on above: Performed By: #### 1 9123-9, 175-7, BMP, 87687-7, CBC, 2731-8, 2777-1 #### [facility] ([id number]) [address], [address] [place] [address] Eosinophils (Bld) [#/Vol] 0.0 10*3/uL Normal 0.0-0.4 [facility] Comment on above: Performed By: #### 1 23-9, 175-7, BMP, 40286-0, CBC, 2731-8, 277-1 #### [facility] ([id number]) [address], [facility] [address] [place] [address] Eosinophils/100 WBC (Bld) 0.2 % Normal [facility] Comment on above: Performed By: #### 1 9122-9, 1750-7, BMP, 73495-5, CBC, 273-8, 2776-1 #### [facility] ([id number]) [address] [address] [place] [address] Erythrocyte distribution width (RBC) [Ratio] 16.1 % High 11.5-15.0 [facility] Comment on above: Performed By: #### 1 9122-9, 1750-7, BMP, 44705-6, CBC, 273-8, 2776-1 #### [facility] ([id number]) [address] [address] [place] [address] Hematocrit (Bld) [Volume fraction] 28.2 % Low 35-47 [facility] Comment on above: Performed By: #### 1 9122-9, 1750-7, BMP, 48402-1, CBC, 273-8, 2776-1 #### [facility] LAB ([id number]) [address], [address] [place] [address] Hemoglobin (Bld) [Mass/Vol] 9.1 g/dL Low 11.7-15.5 [facility] Comment on above: Performed By: #### 1 23-9, 1750-7, BMP, 87523-0, CBC, 2731-8, 277-1 #### [facility] ([id number]) [address] [address] [place] [address] Lymphocytes (Bld) [#/Vol] 1.1 10*3/uL Normal 1.0-3.5 [facility] Comment on above: Performed By: #### 1 23-9, 1751-7, BMP, 29857-3, CBC, 2731-8, 277-1 #### [facility] ([id number]) [address], [facility] [address] [place] [address] Lymphocytes/100 WBC (Bld) 17.4 % Normal [facility] Comment on above: Performed By: #### 1 23-9, 1750-7, BMP, 66556-2, CBC, 273-8, 2776- #### [facility] ([id number]) [address] [address] [address] [place] [address] MCH (RBC) [Entitic mass] 27.5 pg Normal 27-34 [facility] Comment on above: Performed By: #### 1 9122-9, 1750-7, BMP, 38359-7, CBC, 273-8, 2776- #### [facility] ([id number]) [address] [address] [address] [place] [address] MCHC (RBC) [Mass/Vol] 32.2 g/dL Normal 32-36 [facility] Comment on above: Performed By: #### 1 9122-9, 1750-7, BMP, 50623-8, CBC, 273-8, 277- #### [facility] ([id number]) [address] [address] [place] [address] MCV (RBC) [Entitic vol] 85 fL Normal 80-100 [facility] Comment on above: Performed By: #### 1 23-9, 175-7, BMP, 33007-9, CBC, 2731-8, 277-1 #### [facility] ([id number]) [address], [address] [place] [address] Monocytes (Bld) [#/Vol] 0.9 10*3/uL Normal 0-0.9 [facility] Comment on above: Performed By: #### 1 23-9, 1751-7, BMP, 48426-8, CBC, 2731-8, 2777-1 #### [facility] ([id number]) [address], [address] [place] [address] Monocytes/100 WBC (Bld) 13.8 % Normal [facility] Comment on above: Performed By: #### 1 23-9, 1750-7, BMP, 99542-6, CBC, 2731-8, 2777-1 #### [facility] ([id number]) [address], [facility] [address] [place] [address] Neutrophils/100 WBC (Bld) 68.4 % Normal [facility] Comment on above: Performed By: #### 1 9122-9, 1750-7, BMP, 88849-7, CBC, 2731-8, 2777-1 #### [facility] ([id number]) [address], [address] [place] [address] Platelet mean volume (Bld) [Entitic vol] 8.6 fL Normal 7-12 [facility] Comment on above: Performed By: #### 1 9122-9, 1750-7, BMP, 01012-9, CBC, 2731-8, 2777-1 #### [facility] ([id number]) [address], [address] [place] [address] Platelets (Bld) [#/Vol] 207 10*3/uL Normal 150-450 [facility] Comment on above: Performed By: #### 1 23-9, 175-7, BMP, 50970-0, CBC, 2731-8, 2777-1 #### [facility] ([id number]) [address], [address] [place] [address] RBC COUNT 3.30 X10E12/L Low 3.80-5.20 [facility] Comment on above: Performed By: #### 1 9123-9, 175-7, BMP, 11690-8, CBC, 2731-8, 2777-1 #### [facility] ([id number]) [address], [address] [place] [address] WBC (Bld) [#/Vol] 6.5 10*3/uL Normal 4.0-11.0 [facility] Comment on above: Performed By: #### 1 9123-9, 1750-7, BMP, 90416-7, CBC, 273-8, 2776-1 #### [facility] ([id number]) [address], [address] [place] [address] COMPREHENSIVE METABOLIC PANE Dickson 08-13-2024 Albumin [Mass/Vol] 3.4 g/dL Normal 3.2-5.3 [facility] Comment on above: Performed By: #### 1 9123-9, 1750-7, BMP, 83324-4, CBC, 273-8, 277-1 #### [facility] ([id number]) [address], [address] [place] [address] Performed By: #### 1 9123-9, CMP, LIVR, CBCA ####[facility] ([id number])[address] [place] [address] ALP [Catalytic activity/Vol] 74 U/L Normal 39-130 [facility] Comment on above: Performed By: #### 1 9123-9, 175-7, BMP, 47351-8, CBC, 2731-8, 277-1 #### [facility] ([id number]) [address], [address] [place] [address] Performed By: #### 1 9123-9, CMP, LIVR, CBCA ####[facility] ([id number])[address] [place] [address] ALT [Catalytic activity/Vol] 13 U/L Normal 0-31 [facility] Comment on above: Performed By: #### 1 9123-9, 1751-7, BMP, 56181-3, CBC, 2731-8, 2777-1 #### [facility] ([id number]) [address], [address] [place] [address] Performed By: #### 1 9123-9, CMP, LIVR, CBCA ####[facility] ([id number])[address] [place] [address] Anion gap [Moles/Vol] 8 mmol/L Normal 5-15 [facility] Comment on above: Performed By: #### 1 9123-9, 175-7, BMP, 84187-5, CBC, 2731-8, 2777-1 #### [facility] ([id number]) [address], [address] [place] [address] AST [Catalytic activity/Vol] 17 U/L Normal 0-41 [facility] Comment on above: Performed By: #### 1 9123-9, 1751-7, BMP, 94946-9, CBC, 2731-8, 2777-1 #### [facility] ([id number]) [address], [address] [place] [address] Performed By: #### 1 9123-9, CMP, LIVR, CBCA ####[facility] ([id number])[address] [place] [address] Bilirubin [Mass/Vol] 0.3 mg/dL Normal 0.3-1.2 [facility] Comment on above: Performed By: #### 1 9123-9, 1751-7, BMP, 29823-3, CBC, 2731-8, 2777-1 #### [facility] ([id number]) [address], [address] [place] [address] Performed By: #### 1 9123-9, CMP, LIVR, CBCA ####[facility] ([id number])[address] [place] [address] Calcium [Mass/Vol] 8.9 mg/dL Normal 8.5-10.5 [facility] Comment on above: Performed By: #### 1 9123-9, 175-7, BMP, 65593-5, CBC, 2731-8, 2777-1 #### [facility] ([id number]) [address], [address] [place] [address] Chloride [Moles/Vol] 101 mmol/L Normal 98-109 [facility] Comment on above: Performed By: #### 1 9123-9, 1750-7, BMP, 50273-2, CBC, 2731-8, 2777-1 #### [facility] ([id number]) [address], [address] [place] [address] CO2 [Moles/Vol] 27 mmol/L Normal 22-32 [facility] Comment on above: Performed By: #### 1 9123-9, 175-7, BMP, 49915-3, CBC, 2731-8, 2777-1 #### [facility] ([id number]) [address], [address] [place] [address] Creatinine [Mass/Vol] 1.43 mg/dL High 0.40-1.00 [facility] Comment on above: Result Comment: METH OD TRACEABLE TO IDMS STANDARD Performed By: #### 1 9123-9, 1751-7, BMP, 53610-5, CBC, 2731-8, 2777-1 #### [facility] ([id number]) [address], [address] [place] [address] GFR/1.73 sq M.predicted among non-blacks MDRD (S/P/Bld) [Vol rate/Area] 38 mL/min/{1.73_m2} Low >59 [facility] Comment on above: Result Comment: Reported eGFR is based on the CKD-EPI 2020 equation that does not use a race coefficient. Performed By: #### 1 9123-9, 1751-7, BMP, 34989-0, CBC, 2731-8, 2777-1 #### [facility] ([id number]) [address], [address] [place] [address] Glucose [Mass/Vol] 189 mg/dL High 65-99 [facility] Comment on above: Performed By: #### 1 91-9, 1750-7, BMP, 42340-4, CBC, 2731-8, 2777-1 #### [facility] ([id number]) [address], [address] [place] [address] Potassium [Moles/Vol] 4.8 mmol/L Normal 3.5-5.0 [facility] Comment on above: Performed By: #### 1 91-9, 1750-7, BMP, 52561-5, CBC, 2731-8, 2777-1 #### [facility] ([id number]) [address], [address] [place] [address] Protein [Mass/Vol] 6.9 g/dL Normal 6.0-8.0 [facility] Comment on above: Performed By: #### 1 9123-9, 1750-7, BMP, 09687-7, CBC, 2731-8, 2777-1 #### [facility] ([id number]) [address], [address] [place] [address] Performed By: #### 1 9123-9, CMP, LIVR, CBCA ####[facility] ([id number])[address] [place] [address] Sodium [Moles/Vol] 136 mmol/L Normal 134-146 [facility] Comment on above: Performed By: #### 1 9123-9, 1751-7, BMP, 77166-0, CBC, 2731-8, 2777-1 #### [facility] ([id number]) [address], [address] [place] [address] Urea nitrogen [Mass/Vol] 33 mg/dL High 5-27 [facility] Comment on above: Performed By: #### 1 9123-9, 1751-7, BMP, 20214-0, CBC, 2731-8, 2777-1 #### [facility] ([id number]) [address], [address] [place] [address] Glucose Glucometer (BldC) [M ass/Vol]on 08-13-2024 Glucose [Mass/Vol] 233 mg/dL High 65-99 [facility] Glucose [Mass/Vol] 261 mg/dL High 65-99 [facility] Glucose [Mass/Vol] 235 mg/dL High 65-99 [facility] Glucose [Mass/Vol] 136 mg/dL High 65-99 [facility] LIVER PANELon 08-13-2024 Bilirubin.direct [Mass/Vol] 0.1 mg/dL Normal 0.0-0.4 [facility] Comment on above: Performed By: #### 1 9123-9, CMP, LIVR, CBCA ####[facility] ([id number])[address] [place] [address] MAGNESIUMon 08-13-2024 Magnesium [Mass/Vol] 1.9 mg/dL Normal 1.8-2.6 [facility] Comment on above: Performed By: #### 1 9123-9, CMP, LIVR, CBCA ####[facility] ([id number])[address] [place] [address] BLOOD CULTUREon 08-12-2024 Bacteria identified Aer cx Nom (Bld) SPECIMEN NOTES l hand CULTURE RESULTS NO GROWTH 5 DAYS Normal [facility] Comment on above: Performed By: #### 1 9122-9, 1750-7, BMP, 48500-9, CBC, 2731-8, 2776-1 #### [facility] ([id number]) [address], [address] [place] [address] Bacteria identified Aer cx Nom (Bld) SPECIMEN NOTES r hand CULTURE RESULTS NO GROWTH 5 DAYS Normal [facility] Comment on above: Performed By: #### 1 9122-9, 1750-7, BMP, 48686-5, CBC, 2731-8, 2776-1 #### [facility] ([id number]) [address], [address] [place] [address] CBC AND AUTO DIFFon 08-12-20 24 ABSOLUTE BASOPHIL 0.0 X10E9/L Normal 0.0-0.2 [facility] Comment on above: Performed By: #### 1 9122-9, 1750-7, BMP, 34987-4, CBC, 2730-8, 2776-1 #### [facility] ([id number]) [address], [address] [place] [address] ABSOLUTE NEUTROPHIL 5.8 X10E9/L Normal 1.5-6.6 [facility] Comment on above: Performed By: #### 1 9122-9, 1750-7, BMP, 82170-3, CBC, 2730-8, 2776-1 #### [facility] ([id number]) [address], [address] [place] [address] Basophils/100 WBC (Bld) 0.5 % Normal [facility] Comment on above: Performed By: #### 1 9122-9, 1750-7, BMP, 82873-0, CBC, 273-8, 277-1 #### [facility] ([id number]) [address], [address] [place] [address] Eosinophils (Bld) [#/Vol] 0.1 10*3/uL Normal 0.0-0.4 [facility] Comment on above: Performed By: #### 1 9122-9, 1750-7, BMP, 65047-0, CBC, 273-8, 2776- #### [facility] ([id number]) [address], [address] [place] [address] Eosinophils/100 WBC (Bld) 1.5 % Normal [facility] Comment on above: Performed By: #### 1 9122-9, 1750-7, BMP, 57656-1, CBC, 2730-8, 2776- #### [facility] ([id number]) [address], [facility] [address] [place] [address] Erythrocyte distribution width (RBC) [Ratio] 16.1 % High 11.5-15.0 [facility] Comment on above: Performed By: #### 1 9122-9, 1750-7, BMP, 49519-5, CBC, 2730-, 2776- #### [facility] ([id number]) [address], [address] [place] [address] Hematocrit (Bld) [Volume fraction] 30.8 % Low 35-47 [facility] Comment on above: Performed By: #### 1 9122-9, 1750-7, BMP, 85421-1, CBC, 273-8, 2776- #### [facility] ([id number]) [address], [address] [place] [address] Hemoglobin (Bld) [Mass/Vol] 10.1 g/dL Low 11.7-15.5 [facility] Comment on above: Performed By: #### 1 9122-9, 1750-7, BMP, 07333-2, CBC, 273-8, 2776- #### [facility] ([id number]) [address] [address] [place] [address] Lymphocytes (Bld) [#/Vol] 0.5 10*3/uL Low 1.0-3.5 [facility] Comment on above: Performed By: #### 1 9122-9, 1750-7, BMP, 77345-0, CBC, 2730-8, 2776- #### [facility] ([id number]) [address], [address] [place] [address] Lymphocytes/100 WBC (Bld) 7.4 % Normal [facility] Comment on above: Performed By: #### 1 9122-9, 1750-7, BMP, 31628-2, CBC, 2730-8, 2776- #### [facility] ([id number]) [address], [address] [place] [address] MCH (RBC) [Entitic mass] 27.8 pg Normal 27-34 [facility] Comment on above: Performed By: #### 1 9122-9, 1750-7, BMP, 80845-2, CBC, 2730-, 2776- #### [facility] ([id number]) [address], [address] [place] [address] MCHC (RBC) [Mass/Vol] 32.7 g/dL Normal 32-36 [facility] Comment on above: Performed By: #### 1 9122-9, 1750-7, BMP, 97301-4, CBC, 2730-, 2776- #### [facility] ([id number]) [address], [address] [place] [address] MCV (RBC) [Entitic vol] 85 fL Normal 80-100 [facility] Comment on above: Performed By: #### 1 9122-9, 1750-7, BMP, 19593-3, CBC, 2730-, 2776- #### [facility] ([id number]) [address], [address] [place] [address] Monocytes (Bld) [#/Vol] 0.8 10*3/uL Normal 0-0.9 [facility] Comment on above: Performed By: #### 1 23-9, 1751-7, BMP, 66620-2, CBC, 2731-8, 2777-1 #### [facility] ([id number]) [address], [address] [place] [address] Monocytes/100 WBC (Bld) 11.4 % Normal [facility] Comment on above: Performed By: #### 1 23-9, 175-7, BMP, 68142-8, CBC, 2731-8, 2777-1 #### [facility] ([id number]) [address], [address] [place] [address] Neutrophils/100 WBC (Bld) 79.2 % Normal [facility] Comment on above: Performed By: #### 1 9122-9, 1750-7, BMP, 38227-8, CBC, 2730-8, 2776-1 #### [facility] ([id number]) [address], [address] [place] [address] Platelet mean volume (Bld) [Entitic vol] 8.2 fL Normal 7-12 [facility] Comment on above: Performed By: #### 1 23-9, 1750-7, BMP, 22958-9, CBC, 2731-8, 277-1 #### [facility] ([id number]) [address], [address] [place] [address] Platelets (Bld) [#/Vol] 260 10*3/uL Normal 150-450 [facility] Comment on above: Performed By: #### 1 9123-9, 175-7, BMP, 30134-5, CBC, 2731-8, 2777-1 #### [facility] ([id number]) [address], [address] [place] [address] RBC COUNT 3.62 X10E12/L Low 3.80-5.20 [facility] Comment on above: Performed By: #### 1 9123-9, 1751-7, BMP, 66864-6, CBC, 2731-8, 2777-1 #### [facility] ([id number]) [address], [address] [place] [address] WBC (Bld) [#/Vol] 7.3 10*3/uL Normal 4.0-11.0 [facility] Comment on above: Performed By: #### 1 9123-9, 1751-7, BMP, 71141-7, CBC, 2731-8, 2777-1 #### [facility] ([id number]) [address], [address] [place] [address] COMPREHENSIVE METABOLIC PANE Dickson 08-12-2024 Albumin [Mass/Vol] 4.1 g/dL Normal 3.2-5.3 [facility] Comment on above: Performed By: #### 1 23-9, 175-7, BMP, 52393-0, CBC, 2731-8, 2777-1 #### [facility] ([id number]) [address], [address] [place] [address] ALP [Catalytic activity/Vol] 87 U/L Normal 39-130 [facility] Comment on above: Performed By: #### 1 23-9, 1751-7, BMP, 57716-3, CBC, 2731-8, 2777-1 #### [facility] ([id number]) [address], [address] [place] [address] ALT [Catalytic activity/Vol] 13 U/L Normal 0-31 [facility] Comment on above: Performed By: #### 1 9123-9, 1751-7, BMP, 09622-9, CBC, 2731-8, 2777-1 #### [facility] ([id number]) [address], [address] [place] [address] Anion gap [Moles/Vol] 8 mmol/L Normal 5-15 [facility] Comment on above: Performed By: #### 1 23-9, 175-7, BMP, 24720-2, CBC, 2731-8, 2777-1 #### [facility] ([id number]) [address], [address] [place] [address] AST [Catalytic activity/Vol] 17 U/L Normal 0-41 [facility] Comment on above: Performed By: #### 1 23-9, 1750-7, BMP, 49908-6, CBC, 2731-8, 2777-1 #### [facility] ([id number]) [address], [address] [place] [address] Bilirubin [Mass/Vol] 0.4 mg/dL Normal 0.3-1.2 [facility] Comment on above: Performed By: #### 1 9122-9, 1750-7, BMP, 37953-6, CBC, 2731-8, 2776-1 #### [facility] ([id number]) [address], [address] [place] [address] Calcium [Mass/Vol] 9.0 mg/dL Normal 8.5-10.5 [facility] Comment on above: Performed By: #### 1 23-9, 1750-7, BMP, 30936-4, CBC, 2731-8, 2777-1 #### [facility] ([id number]) [address], [address] [place] [address] Chloride [Moles/Vol] 101 mmol/L Normal 98-109 [facility] Comment on above: Performed By: #### 1 23-9, 1750-7, BMP, 73018-7, CBC, 2731-8, 2777-1 #### [facility] ([id number]) [address], [address] [place] [address] CO2 [Moles/Vol] 27 mmol/L Normal 22-32 [facility] Comment on above: Performed By: #### 1 9123-9, 1751-7, BMP, 56115-9, CBC, 2731-8, 2777-1 #### [facility] ([id number]) [address], [address] [place] [address] Creatinine [Mass/Vol] 1.48 mg/dL High 0.40-1.00 [facility] Comment on above: Result Comment: METH OD TRACEABLE TO IDMS STANDARD Performed By: #### 1 23-9, 175-7, BMP, 18142-7, CBC, 2731-8, 2777-1 #### [facility] ([id number]) [address], [address] [place] [address] GFR/1.73 sq M.predicted among non-blacks MDRD (S/P/Bld) [Vol rate/Area] 36 mL/min/{1.73_m2} Low >59 [facility] Comment on above: Result Comment: Reported eGFR is based on the CKD-EPI 2020 equation that does not use a race coefficient. Performed By: #### 1 23-9, 175-7, BMP, 35619-3, CBC, 2731-8, 2777-1 #### [facility] ([id number]) [address], [address] [place] [address] Glucose [Mass/Vol] 271 mg/dL High 65-99 [facility] Comment on above: Performed By: #### 1 23-9, 175-7, BMP, 86134-1, CBC, 2731-8, 2777-1 #### [facility] ([id number]) [address], [address] [place] [address] Potassium [Moles/Vol] 4.8 mmol/L Normal 3.5-5.0 [facility] Comment on above: Performed By: #### 1 23-9, 175-7, BMP, 54139-9, CBC, 2731-8, 2777-1 #### [facility] ([id number]) [address] [place] [address] Protein [Mass/Vol] 7.6 g/dL Normal 6.0-8.0 [facility] Comment on above: Performed By: #### 1 9123-9, 1751-7, BMP, 00439-2, CBC, 2731-8, 2777-1 #### [facility] ([id number]) [address] [place] [address] Sodium [Moles/Vol] 136 mmol/L Normal 134-146 [facility] Comment on above: Performed By: #### 1 9123-9, 1751-7, BMP, 68249-6, CBC, 2731-8, 2777-1 #### [facility] ([id number]) [address], [address] [place] [address] Urea nitrogen [Mass/Vol] 33 mg/dL High 5-27 [facility] Comment on above: Performed By: #### 1 9123-9, 1751-7, BMP, 44554-7, CBC, 2731-8, 2777-1 #### [facility] ([id number]) [address], [address] [place] [address] Fibrin D-dimer DDU (PPP) [Ma ss/Vol]on 08-12-2024 D DIMER 1146 ng/mL DDU High <255 [facility] Comment on above: Result Comment: Results >=255ng/mL DDU: Results may be indicative of the presence of VTE. The use of the Wells score and further diagnostic tests should be considered. Elevated D-Dimer levels can also be associated with DIC, neoplasm, , trauma and liver disease. Elevated levels of rheumatoid factor may lead to an overestimation of the D-Dimer level. Performed By: #### 1 9123-9, 1751-7, BMP, 68304-9, CBC, 2731-8, 2777-1 #### [facility] ([id number]) [address], [address] [place] [address] Glucose Glucometer (BldC) [M ass/Vol]on 08-12-2024 Glucose [Mass/Vol] 313 mg/dL High 65-99 [facility] Glucose [Mass/Vol] 255 mg/dL High 65-99 [facility] Glucose [Mass/Vol] 113 mg/dL High 65-99 [facility] Glucose [Mass/Vol] 161 mg/dL High 65-99 [facility] URINE AGon 2023 L. pneumophila Ag IA Ql (U) [facility] URINE AG Negative (qualifier value) NEGATIVE FOR L.PNEUMOPHILA SEROGROUP 1 ANTIGEN Normal [facility] Comment on above: Performed By: #### 1 9123-9, 1750-7, BMP, 10626-3, CBC, 2731-8, 2777-1 #### [facility] ([id number]) [address], [address] [place] [address] LIVER PANELon 08-12-2024 Albumin [Mass/Vol] 3.9 g/dL Normal 3.2-5.3 [facility] Comment on above: Performed By: #### 1 23-9, 1750-7, BMP, 93742-9, CBC, 2731-8, 2777-1 #### [facility] ([id number]) [address], [address] [place] [address] Bilirubin [Mass/Vol] 0.1 mg/dL Low 0.3-1.2 [facility] Comment on above: Performed By: #### 1 23-9, 1750-7, BMP, 13044-7, CBC, 2731-8, 2777-1 #### [facility] ([id number]) [address], [address] [place] [address] Bilirubin.indirect [Mass/Vol] mg/dL Normal 0.0-0.4 [facility] Comment on above: Performed By: #### 1 23-9, 175-7, BMP, 31692-9, CBC, 2731-8, 2777-1 #### [facility] ([id number]) [address], [address] [place] [address] Protein [Mass/Vol] 7.5 g/dL Normal 6.0-8.0 [facility] Comment on above: Performed By: #### 1 9123-9, 1751-7, BMP, 04518-8, CBC, 2731-8, 2777-1 #### [facility] ([id number]) [address], [address] [place] [address] Lactate (P obed) [Moles/Vol]o n 08-12-2024 LACTATE W/REFLEX 0.9 mmol/L Normal 0.4-2.0 [facility] Comment on above: Result Comment: Result did not trigger repeat Lactate, re-order if needed. Performed By: #### 1 9123-9, 1751-7, [facility], 73088-0, CBC, 2731-8, 2777-1 #### [facility] ([id number]) [address], [address] [place] [address] NM PULM PERFUSION SCANon NM PULM PERFUSION [...] Vanegas MD on 08/12/2024 2:07 PM Normal [facility] Procalcitonin IA [Mass/Vol]o n 08-12-2024 PROCALCITONIN 0.05 ng/mL High <0.05 [facility] Comment on above: Result Comment: NOTE <0.50 ng/mL - Low risk of severe sepsis and/or septic shock. <2.00 ng/mL - Recommend retesting within 6-24 hours. >2.00 ng/mL - High risk of sepsis and/or septic shock. Performed By: #### 1 9123-9, 1751-7, BMP, 52778-8, CBC, 2731-8, 2777-1 #### [facility] ([id number]) [address], [address] [place] [address] S PNEUMONIAE AG Uon 08-12-20 24 S. pneumoniae Ag Ql (U) Negative Normal NEG [facility] Comment on above: Performed By: #### 1 9123-9, 1751-7, BMP, 36425-8, CBC, 2731-8, 2777-1 #### [facility] ([id number]) [address], [address] [place] [address] SARS/FLU A+B/RSV by NAAT/Mol ecularon 08-12-2024 SARS/FLU [...] operators who are performing tests using either [employer] or [employer] systems and is limited to laboratories that [...] repeat. Fact Sheet for Healthcare Providers: https://www.fda.gov/med ia/522226/download Fact Sheet for Patients: https://www.fda.gov/med ia/608199/download Normal [facility] Comment on above: Performed By: #### 1 9123-9, 1751-7, BMP, 88899-7, CBC, 2731-8, 2777-1 #### [facility] ([id number]) [address] [place] [address], [address] [place] [address] URINE CULTUREon 08-12-2024 Bacteria identified Cx Nom [...] F TRIMETH/SULFAMETHOXAZOL E S <=1/19 F Susceptible [facility] Comment on above: Performed By: #### 6 30-4 ####[facility] ([id number])[address] [place] [address], [address] [place] [address] URN MACROSCOPIC NURon 2023 BILIRUBIN MARYJO Negative Normal NEG [facility] Comment on above: Performed By: #### 1 9123-9, 1751-7, BMP, 06497-5, CBC, 2731-8, 2777-1 #### [facility] ([id number]) [address], [address] [place] [address] BLOOD/HGB MARYJO Negative Normal NEG [facility] Comment on above: Performed By: #### 1 9123-9, 1751-7, BMP, 78501-2, CBC, 2731-8, 2777-1 #### [facility] ([id number]) [address], [address] [place] [address] GLUCOSE MARYJO 250 mg/dL Abnormal NEG [facility] Comment on above: Performed By: #### 1 9123-9, 1751-7, BMP, 94530-8, CBC, 2731-8, 2777-1 #### [facility] ([id number]) [address], [address] [place] [address] KETONES MARYJO Negative Normal NEG [facility] Comment on above: Performed By: #### 1 9123-9, 1751-7, BMP, 77697-5, CBC, 2731-8, 2777-1 #### [facility] ([id number]) [address], [address] [place] [address] LEUKOCYTE ESTERASE MARYJO Trace Abnormal NEG [facility] Comment on above: Performed By: #### 1 9123-9, 1751-7, BMP, 14704-1, CBC, 2731-8, 2777-1 #### [facility] ([id number]) [address], [address] [place] [address] NITRITE MARYJO Positive Abnormal NEG [facility] Comment on above: Performed By: #### 1 9123-9, 1751-7, BMP, 34873-7, CBC, 2731-8, 2777-1 #### [facility] ([id number]) [address], [address] [place] [address] PH MARYJO 7.0 Normal 5.0-8.5 [facility] Comment on above: Performed By: #### 1 9122-9, 1750-7, BMP, 87979-3, CBC, 2731-8, 2777-1 #### [facility] ([id number]) [address], [address] [place] [address] PROTEIN MARYJO 30 mg/dL Abnormal NEG [facility] Comment on above: Performed By: #### 1 9122-9, 1750-7, BMP, 52166-7, CBC, 273-8, 2776-1 #### [facility] ([id number]) [address], [address] [place] [address] SPECIFIC GRAVITY MARYJO >=1.030 Normal 1.003-1.035 [facility] Comment on above: Performed By: #### 1 9122-9, 1750-7, BMP, 39760-5, CBC, 273-8, 2776-1 #### [facility] ([id number]) [address], [address] [place] [address] UROBILINOGEN MARYJO 0.2 eu/dL Normal <1.1 [facility] Comment on above: Performed By: #### 1 9122-9, 1750-7, BMP, 56392-0, CBC, 273-8, 2776-1 #### [facility] ([id number]) [address], [facility] [address] [place] [address] VENOUS BLOOD GASon 4 TATO'S TEST Normal [facility] Comment on above: Performed By: #### 1 23-9, 1750-7, BMP, 64259-1, CBC, 2731-8, 2777-1 #### [facility] ([id number]) [address], [facility] [address] [place] [address] Base excess Calc (Bld) [Moles/Vol] 3.0 mmol/L High 0.0-2.0 [facility] Comment on above: Performed By: #### 1 9123-9, 175-7, BMP, 56854-4, CBC, 2731-8, 2777-1 #### [facility] ([id number]) [address], [address] [place] [address] Body temperature 98.6 [degF] Normal 37.0 [facility] Comment on above: Performed By: #### 1 23-9, 175-7, BMP, 03946-0, CBC, 2731-8, 2777-1 #### [facility] ([id number]) [address], [address] [place] [address] HCO3 (Bld) [Moles/Vol] 30.2 mmol/L High 20.0-24.0 [facility] Comment on above: Performed By: #### 1 9122-9, 175-7, BMP, 68855-7, CBC, 2731-8, 2777-1 #### [facility] ([id number]) [address], [address] [place] [address] Oxygen saturation in Blood 43.0 % Low >80.0 [facility] Comment on above: Performed By: #### 1 9122-9, 1750-7, BMP, 08454-3, CBC, 2731-8, 2777-1 #### [facility] ([id number]) [address], [address] [place] [address] OXYGEN SOURCE NC Normal [facility] Comment on above: Performed By: #### 1 23-9, 175-7, BMP, 85811-7, CBC, 2731-8, 2777-1 #### [facility] ([id number]) [address], [address] [place] [address] PCO2, VENOUS 58.4 MMHG High 35-50 [facility] Comment on above: Performed By: #### 1 23-9, 175-7, BMP, 23531-0, CBC, 2731-8, 2777-1 #### [facility] ([id number]) [address], [facility] [address] [place] [address] PH, VENOUS 7.322 Normal 7.320-7.420 [facility] Comment on above: Performed By: #### 1 9123-9, 1751-7, BMP, 37960-5, CBC, 2731-8, 2777-1 #### [facility] ([id number]) [address], [address] [address] PO2, VENOUS 27 MMHG Low 30-50 [facility] Comment on above: Performed By: #### 1 9123-9, 1751-7, BMP, 84431-9, CBC, 2731-8, 2777-1 #### [facility] ([id number]) [address], [facility] [address] [place] [address] SAMPLE SITE N/A Normal [facility] Comment on above: Performed By: #### 1 9123-9, 1751-7, BMP, 78639-5, CBC, 2731-8, 2777-1 #### [facility] ([id number]) [address], [address] [address] SAMPLE TYPE VENOUS Normal [facility] Comment on above: Performed By: #### 1 9123-9, 1751-7, BMP, 58961-3, CBC, 2731-8, 2777-1 #### [facility] ([id number]) [address], [address] [address] XR CHEST 1 VWon 08-12-2024 XR CHEST [...] Tapia MD on 08/12/2024 3:18 AM Normal [facility] Glucose Glucometer (BldC) [M ass/Vol]on 06-26-2024 Glucose [Mass/Vol] 206 mg/dL High 65-99 [facility] URN MACROSCOPIC NURon 2023 BILIRUBIN MARYJO Negative Normal NEG [facility] Comment on above: Performed By: #### 1 9123-9, 1751-7, BMP, 77556-3, CBC, 2731-8, 2777-1 #### [facility] ([id number]) [address], [address] [place] [address] BLOOD/HGB MARYJO Negative Normal NEG [facility] Comment on above: Performed By: #### 1 9123-9, 1751-7, BMP, 38850-2, CBC, 2731-8, 2777-1 #### [facility] ([id number]) [address], [address] [place] [address] GLUCOSE MARYJO 250 mg/dL Abnormal NEG [facility] Comment on above: Performed By: #### 1 9123-9, 1751-7, BMP, 75632-8, CBC, 2731-8, 2777-1 #### [facility] ([id number]) [address], [address] [place] [address] KETONES MARYJO Negative Normal NEG [facility] Comment on above: Performed By: #### 1 9123-9, 1751-7, BMP, 38093-0, CBC, 2731-8, 2777-1 #### [facility] ([id number]) [address], [address] [place] [address] LEUKOCYTE ESTERASE MARYJO Negative Normal NEG [facility] Comment on above: Performed By: #### 1 9123-9, 1751-7, BMP, 00131-1, CBC, 2731-8, 2777-1 #### [facility] ([id number]) [address], [address] [place] [address] NITRITE MARYJO Negative Normal NEG [facility] Comment on above: Performed By: #### 1 9123-9, 175-7, BMP, 74320-8, CBC, 2731-8, 2777-1 #### [facility] ([id number]) [address], [address] [place] [address] PH MARYJO 5.5 Normal 5.0-8.5 [facility] Comment on above: Performed By: #### 1 9123-9, 175-7, BMP, 94897-7, CBC, 2731-8, 2777-1 #### [facility] ([id number]) [address], [address] [place] [address] PROTEIN MARYJO 30 mg/dL Abnormal NEG [facility] Comment on above: Performed By: #### 1 9123-9, 175-7, BMP, 33476-1, CBC, 2731-8, 277-1 #### [facility] ([id number]) [address], [address] [place] [address] SPECIFIC GRAVITY MARYJO >=1.030 Normal 1.003-1.035 [facility] Comment on above: Performed By: #### 1 9123-9, 175-7, BMP, 72448-2, CBC, 2731-8, 2777-1 #### [facility] ([id number]) [address], [address] [place] [address] UROBILINOGEN MARYJO 0.2 eu/dL Normal <1.1 [facility] Comment on above: Performed By: #### 1 9123-9, 175-7, BMP, 13283-8, CBC, 2731-8, 2777-1 #### [facility] ([id number]) [address], [address] [place] [address] BASIC METABOLIC PANLon 06-25 Anion gap [Moles/Vol] 10 mmol/L Normal 5-15 [facility] Comment on above: Performed By: #### 1 23-9, 1751-7, BMP, 58063-0, CBC, 2731-8, 2777-1 #### [facility] ([id number]) [address], [address] [place] [address] Calcium [Mass/Vol] 8.7 mg/dL Normal 8.5-10.5 [facility] Comment on above: Performed By: #### 1 23-9, 1750-7, BMP, 75984-4, CBC, 2731-8, 2777-1 #### [facility] ([id number]) [address], [address] [place] [address] Chloride [Moles/Vol] 97 mmol/L Low 98-109 [facility] Comment on above: Performed By: #### 1 23-9, 1750-7, BMP, 06348-1, CBC, 2731-8, 2777-1 #### [facility] ([id number]) [address], [address] [place] [address] CO2 [Moles/Vol] 27 mmol/L Normal 22-32 [facility] Comment on above: Performed By: #### 1 23-9, 175-7, BMP, 33768-6, CBC, 2731-8, 2777-1 #### [facility] ([id number]) [address], [address] [place] [address] Creatinine [Mass/Vol] 1.42 mg/dL High 0.40-1.00 [facility] Comment on above: Result Comment: METH OD TRACEABLE TO IDMS STANDARD Performed By: #### 1 23-9, 175-7, BMP, 89848-2, CBC, 2731-8, 2777-1 #### [facility] ([id number]) [address], [address] [place] [address] GFR/1.73 sq M.predicted among non-blacks MDRD (S/P/Bld) [Vol rate/Area] 38 mL/min/{1.73_m2} Low >59 [facility] Comment on above: Result Comment: Reported eGFR is based on the CKD-EPI 2020 equation that does not use a race coefficient. Performed By: #### 1 9122-9, 1750-7, BMP, 98782-9, CBC, 2731-8, 2777-1 #### [facility] ([id number]) [address], [address] [place] [address] Glucose [Mass/Vol] 92 mg/dL Normal 65-99 [facility] Comment on above: Performed By: #### 1 9122-9, 1750-7, BMP, 35729-8, CBC, 2731-8, 2777-1 #### [facility] ([id number]) [address], [address] [place] [address] Potassium [Moles/Vol] 4.6 mmol/L Normal 3.5-5.0 [facility] Comment on above: Performed By: #### 1 9122-9, 1750-7, BMP, 31601-0, CBC, 2731-8, 277-1 #### [facility] ([id number]) [address], [address] [place] [address] Sodium [Moles/Vol] 134 mmol/L Normal 134-146 [facility] Comment on above: Performed By: #### 1 9122-9, 1750-7, BMP, 51222-6, CBC, 2731-8, 2777-1 #### [facility] ([id number]) [address], [address] [place] [address] Urea nitrogen [Mass/Vol] 24 mg/dL Normal 5-27 [facility] Comment on above: Performed By: #### 1 23-9, 1750-7, BMP, 14747-3, CBC, 2731-8, 2776-1 #### [facility] ([id number]) [address], [address] [place] [address] CBC AND AUTO DIFFon 06-25-20 24 ABSOLUTE BASOPHIL 0.1 X10E9/L Normal 0.0-0.2 [facility] Comment on above: Performed By: #### 1 9122-9, 1750-7, BMP, 08575-8, CBC, 273-8, 2776- #### [facility] ([id number]) [address], [address] [place] [address] ABSOLUTE NEUTROPHIL 9.0 X10E9/L High 1.5-6.6 [facility] Comment on above: Performed By: #### 1 9122-9, 1750-7, BMP, 22422-1, CBC, 273-8, 2776-1 #### [facility] ([id number]) [address], [address] [place] [address] Basophils/100 WBC (Bld) 0.6 % Normal [facility] Comment on above: Performed By: #### 1 9122-9, 1750-7, BMP, 64151-2, CBC, 273-8, 2776- #### [facility] ([id number]) [address], [address] [place] [address] Eosinophils (Bld) [#/Vol] 0.0 10*3/uL Normal 0.0-0.4 [facility] Comment on above: Performed By: #### 1 9122-9, 1750-7, BMP, 61084-2, CBC, 2731-8, 2777-1 #### [facility] ([id number]) [address], [address] [place] [address] Eosinophils/100 WBC (Bld) 0.2 % Normal [facility] Comment on above: Performed By: #### 1 9122-9, 1750-7, BMP, 30353-9, CBC, 2731-8, 277-1 #### [facility] ([id number]) [address], [address] [place] [address] Erythrocyte distribution width (RBC) [Ratio] 15.7 % High 11.5-15.0 [facility] Comment on above: Performed By: #### 1 9122-9, 1750-7, BMP, 73606-0, CBC, 273-8, 2776- #### [facility] ([id number]) [address], [address] [place] [address] Hematocrit (Bld) [Volume fraction] 31.0 % Low 35-47 [facility] Comment on above: Performed By: #### 1 9122-9, 1750-7, BMP, 66800-7, CBC, 273-8, 2776- #### [facility] ([id number]) [address], [address] [place] [address] Hemoglobin (Bld) [Mass/Vol] 10.1 g/dL Low 11.7-15.5 [facility] Comment on above: Performed By: #### 1 9122-9, 1750-7, BMP, 30104-2, CBC, 273-8, 2776- #### [facility] ([id number]) [address], [address] [place] [address] Lymphocytes (Bld) [#/Vol] 1.2 10*3/uL Normal 1.0-3.5 [facility] Comment on above: Performed By: #### 1 9122-9, 1750-7, BMP, 55447-4, CBC, 2731-8, 2777-1 #### [facility] ([id number]) [address], [address] [place] [address] Lymphocytes/100 WBC (Bld) 10.4 % Normal [facility] Comment on above: Performed By: #### 1 23-9, 1750-7, BMP, 25933-0, CBC, 273-8, 2776- #### [facility] ([id number]) [address], [address] [place] [address] MCH (RBC) [Entitic mass] 28.1 pg Normal 27-34 [facility] Comment on above: Performed By: #### 1 9122-9, 1750-7, BMP, 30180-5, CBC, 2730-8, 2776- #### [facility] ([id number]) [address], [address] [place] [address] MCHC (RBC) [Mass/Vol] 32.6 g/dL Normal 32-36 [facility] Comment on above: Performed By: #### 1 9122-9, 1750-7, BMP, 67735-6, CBC, 2730-, 2776- #### [facility] ([id number]) [address], [address] [place] [address] MCV (RBC) [Entitic vol] 86 fL Normal 80-100 [facility] Comment on above: Performed By: #### 1 9122-9, 1750-, BMP, 87537-6, CBC, 2730-, 2776- #### [facility] ([id number]) [address], [address] [place] [address] Monocytes (Bld) [#/Vol] 1.1 10*3/uL High 0-0.9 [facility] Comment on above: Performed By: #### 1 9122-9, 1750-7, BMP, 87985-1, CBC, 273-8, 277- #### [facility] ([id number]) [address], [address] [place] [address] Monocytes/100 WBC (Bld) 9.6 % Normal [facility] Comment on above: Performed By: #### 1 9122-9, 175-7, BMP, 96075-6, CBC, 2731-8, 2777-1 #### [facility] ([id number]) [address], [address] [place] [address] Neutrophils/100 WBC (Bld) 79.2 % Normal [facility] Comment on above: Performed By: #### 1 9122-9, 1750-7, BMP, 13836-2, CBC, 273-8, 2777-1 #### [facility] ([id number]) [address], [address] [place] [address] Platelet mean volume (Bld) [Entitic vol] 8.1 fL Normal 7-12 [facility] Comment on above: Performed By: #### 1 9122-9, 1750-7, BMP, 57539-0, CBC, 273-8, 277-1 #### [facility] ([id number]) [address], [address] [place] [address] Platelets (Bld) [#/Vol] 216 10*3/uL Normal 150-450 [facility] Comment on above: Performed By: #### 1 9122-9, 1750-7, BMP, 98966-8, CBC, 273-8, 277-1 #### [facility] ([id number]) [address], [address] [place] [address] RBC COUNT 3.59 X10E12/L Low 3.80-5.20 [facility] Comment on above: Performed By: #### 1 9122-9, 1750-7, BMP, 68967-5, CBC, 2731-8, 2777-1 #### [facility] ([id number]) [address], [address] [place] [address] WBC (Bld) [#/Vol] 11.4 10*3/uL High 4.0-11.0 [facility] Comment on above: Performed By: #### 1 9123-9, 1751-7, BMP, 60241-7, CBC, 2731-8, 2777-1 #### [facility] ([id number]) [address] [facility], [address] [place] [address] Glucose Glucometer (BldC) [M ass/Vol]on 06-25-2024 Glucose [Mass/Vol] 159 mg/dL High 65-99 [facility] Glucose [Mass/Vol] 80 mg/dL Normal 65-99 [facility] SARS/FLU A+B/RSV by NAAT/Mol ecularon 06-25-2024 SARS/FLU [...] operators who are performing tests using either 4th aspect DX or Capseo systems and is limited to laboratories that [...] repeat. Fact Sheet for Healthcare Providers: https://www.fda.gov/med ia/011176/download Fact Sheet for Patients: https://www.fda.gov/med ia/335222/download Normal [facility] Comment on above: Performed By: #### 1 9123-9, 175-7, BMP, 83209-1, CBC, 2731-8, 2777-1 #### [facility] ([id number]) [address], [address] [place] [address] Troponin I.cardiac High sens itivity method [Mass/Vol]on 06-25-2024 1 HOUR TROP I, HIGH SENSITIVITY 10 ng/L Normal <16 [facility] Comment on above: Performed By: #### 1 9123-9, 1750-7, BMP, 40194-5, CBC, 2731-8, 2777-1 #### [facility] ([id number]) [address], [address] [place] [address] TROPONIN I, HIGH SENSITIVITY 9 ng/L Normal <16 [facility] Comment on above: Performed By: #### 1 9123-9, 1750-7, BMP, 02599-6, CBC, 2731-8, 2777-1 #### [facility] ([id number]) [address], [address] [place] [address] BASIC METABOLIC PANLon 06-15 Anion gap [Moles/Vol] 5 mmol/L Normal 5-15 [facility] Comment on above: Performed By: #### 1 9123-9, 1750-7, BMP, 67096-4, CBC, 2731-8, 2777-1 #### [facility] ([id number]) [address], [address] [place] [address] Calcium [Mass/Vol] 8.5 mg/dL Normal 8.5-10.5 [facility] Comment on above: Performed By: #### 1 9123-9, 1751-7, BMP, 12691-8, CBC, 2731-8, 2777-1 #### [facility] ([id number]) [address], [address] [place] [address] Chloride [Moles/Vol] 105 mmol/L Normal 98-109 [facility] Comment on above: Performed By: #### 1 9123-9, 1751-7, BMP, 22235-2, CBC, 2731-8, 2777-1 #### [facility] ([id number]) [address], [address] [place] [address] CO2 [Moles/Vol] 23 mmol/L Normal 22-32 [facility] Comment on above: Performed By: #### 1 9123-9, 1751-7, BMP, 20097-2, CBC, 2731-8, 2777-1 #### [facility] ([id number]) [address], [address] [place] [address] Creatinine [Mass/Vol] 1.62 mg/dL High 0.40-1.00 [facility] Comment on above: Result Comment: METH OD TRACEABLE TO IDMS STANDARD Performed By: #### 1 9123-9, 1751-7, BMP, 58466-9, CBC, 2731-8, 2777-1 #### [facility] ([id number]) [address], [address] [place] [address] GFR/1.73 sq M.predicted among non-blacks MDRD (S/P/Bld) [Vol rate/Area] 32 mL/min/{1.73_m2} Low >59 [facility] Comment on above: Result Comment: Reported eGFR is based on the CKD-EPI 2020 equation that does not use a race coefficient. Performed By: #### 1 23-9, 1751-7, BMP, 15090-2, CBC, 2731-8, 2777-1 #### [facility] ([id number]) [address], [address] [place] [address] Glucose [Mass/Vol] 319 mg/dL High 65-99 [facility] Comment on above: Performed By: #### 1 23-9, 1750-7, BMP, 24236-2, CBC, 2731-8, 2777-1 #### [facility] ([id number]) [address], [address] [place] [address] Potassium [Moles/Vol] 5.0 mmol/L Normal 3.5-5.0 [facility] Comment on above: Performed By: #### 1 9122-9, 1750-7, BMP, 58598-8, CBC, 2731-8, 2777-1 #### [facility] ([id number]) [address], [address] [place] [address] Sodium [Moles/Vol] 133 mmol/L Low 134-146 [facility] [facility] Comment on above: Performed By: #### 1 9122-9, 1750-7, BMP, 81235-2, CBC, 2731-8, 2777-1 #### [facility] ([id number]) [address], [address] [place] [address] Urea nitrogen [Mass/Vol] 48 mg/dL High 5-27 [facility] Comment on above: Performed By: #### 1 23-9, 1750-7, BMP, 90274-8, CBC, 2731-8, 2777-1 #### [facility] ([id number]) [address], [address] [place] [address] CBC AND AUTO DIFFon 06-15-20 24 ABSOLUTE BASOPHIL 0.1 X10E9/L Normal 0.0-0.2 [facility] Comment on above: Performed By: #### 1 9122-9, 1750-7, BMP, 45911-0, CBC, 273-8, 2776- #### [facility] ([id number]) [address], [address] [place] [address] ABSOLUTE NEUTROPHIL 13.5 X10E9/L High 1.5-6.6 [facility] Comment on above: Performed By: #### 1 9122-9, 1750-, BMP, 24184-9, CBC, 273-8, 2776- #### [facility] ([id number]) [address], [address] [place] [address] Basophils/100 WBC (Bld) 0.4 % Normal [facility] Comment on above: Performed By: #### 1 9122-9, 1751-05, BMP, 41610-7, CBC, 2730-8, 2776- #### [facility] ([id number]) [address], [address] [place] [address] Eosinophils (Bld) [#/Vol] 0.0 10*3/uL Normal 0.0-0.4 [facility] Comment on above: Performed By: #### 1 9122-9, 1751-05, BMP, 51218-4, CBC, 273-8, 2776- #### [facility] ([id number]) [address], [address] [place] [address] Eosinophils/100 WBC (Bld) 0.1 % Normal [facility] Comment on above: Performed By: #### 1 9122-9, 1751-05, BMP, 08705-4, CBC, 273-8, 2776-1 #### [facility] ([id number]) [address], [address] [place] [address] Erythrocyte distribution width (RBC) [Ratio] 15.1 % High 11.5-15.0 [facility] Comment on above: Performed By: #### 1 9122-9, 1750-7, BMP, 25311-3, CBC, 2731-8, 2776-1 #### [facility] ([id number]) [address], [address] [place] [address] Hematocrit (Bld) [Volume fraction] 28.4 % Low 35-47 [facility] Comment on above: Performed By: #### 1 9122-9, 1750-7, BMP, 58193-7, CBC, 273-8, 2776- #### [facility] ([id number]) [address], [facility] [address] [place] [address] Hemoglobin (Bld) [Mass/Vol] 9.4 g/dL Low 11.7-15.5 [facility] Comment on above: Performed By: #### 1 9122-9, 1750-7, BMP, 26213-6, CBC, 273-8, 2776- #### [facility] ([id number]) [address], [address] [place] [address] Lymphocytes (Bld) [#/Vol] 1.1 10*3/uL Normal 1.0-3.5 [facility] Comment on above: Performed By: #### 1 9122-9, 1750-7, BMP, 93964-0, CBC, 273-8, 2776- #### [facility] ([id number]) [address], [facility] [address] [place] [address] Lymphocytes/100 WBC (Bld) 6.9 % Normal [facility] Comment on above: Performed By: #### 1 9122-9, 1750-7, BMP, 02911-8, CBC, 2731-8, 277-1 #### [facility] ([id number]) [address], [address] [place] [address] MCH (RBC) [Entitic mass] 28.2 pg Normal 27-34 [facility] Comment on above: Performed By: #### 1 9122-9, 1750-7, BMP, 10699-7, CBC, 273-8, 2776- #### [facility] ([id number]) [address], [address] [place] [address] MCHC (RBC) [Mass/Vol] 33.1 g/dL Normal 32-36 [facility] Comment on above: Performed By: #### 1 9122-9, 1750-7, BMP, 54539-9, CBC, 273-8, 2776- #### [facility] ([id number]) [address], [address] [place] [address] MCV (RBC) [Entitic vol] 85 fL Normal 80-100 [facility] Comment on above: Performed By: #### 1 9122-9, 1750-7, BMP, 79983-7, CBC, 2730-8, 2776- #### [facility] ([id number]) [address], [address] [place] [address] Monocytes (Bld) [#/Vol] 0.8 10*3/uL Normal 0-0.9 [facility] Comment on above: Performed By: #### 1 9122-9, 1750-7, BMP, 85749-9, CBC, 273-8, 2776- #### [facility] ([id number]) [address], [address] [place] [address] Monocytes/100 WBC (Bld) 5.3 % Normal [facility] Comment on above: Performed By: #### 1 9122-9, 1750-7, BMP, 18053-6, CBC, 2731-8, 277-1 #### [facility] ([id number]) [address], [address] [place] [address] Neutrophils/100 WBC (Bld) 87.3 % Normal [facility] Comment on above: Performed By: #### 1 23-9, 1751-7, BMP, 83249-2, CBC, 2731-8, 2777-1 #### [facility] ([id number]) [address], [address] [place] [address] Platelet mean volume (Bld) [Entitic vol] 9.1 fL Normal 7-12 [facility] Comment on above: Performed By: #### 1 23-9, 175-7, BMP, 76796-9, CBC, 2731-8, 2777-1 #### [facility] ([id number]) [address], [address] [place] [address] Platelets (Bld) [#/Vol] 98 10*3/uL Low 150-450 [facility] Comment on above: Performed By: #### 1 23-9, 1750-7, BMP, 52933-2, CBC, 2731-8, 2777-1 #### [facility] ([id number]) [address], [address] [place] [address] RBC COUNT 3.34 X10E12/L Low 3.80-5.20 [facility] Comment on above: Performed By: #### 1 23-9, 1750-7, BMP, 23039-0, CBC, 2731-8, 2777-1 #### [facility] ([id number]) [address], [address] [place] [address] WBC (Bld) [#/Vol] 15.5 10*3/uL High 4.0-11.0 [facility] Comment on above: Performed By: #### 1 23-9, 175-7, BMP, 31325-6, CBC, 2731-8, 2777-1 #### [facility] ([id number]) [address], [address] [place] [address] COMPREHENSIVE METABOLIC PANE Dickson 2024 Albumin [Mass/Vol] 3.4 g/dL Normal 3.2-5.3 [facility] Comment on above: Performed By: #### 1 9123-9, 1751-7, BMP, 46759-5, CBC, 2731-8, 2777-1 #### [facility] ([id number]) [address], [address] [place] [address] ALP [Catalytic activity/Vol] 68 U/L Normal 39-130 [facility] Comment on above: Performed By: #### 1 23-9, 1751-7, BMP, 09267-6, CBC, 2731-8, 2777-1 #### [facility] ([id number]) [address], [address] [place] [address] ALT [Catalytic activity/Vol] 15 U/L Normal 0-31 [facility] Comment on above: Performed By: #### 1 23-9, 175-7, BMP, 99365-7, CBC, 2731-8, 2777-1 #### [facility] ([id number]) [address], [address] [place] [address] Anion gap [Moles/Vol] 10 mmol/L Normal 5-15 [facility] Comment on above: Performed By: #### 1 23-9, 1750-7, BMP, 88459-2, CBC, 2731-8, 2777-1 #### [facility] ([id number]) [address], [address] [place] [address] AST [Catalytic activity/Vol] 26 U/L Normal 0-41 [facility] Comment on above: Performed By: #### 1 9123-9, 1751-7, BMP, 32841-0, CBC, 2731-8, 2777-1 #### [facility] ([id number]) [address], [address] [place] [address] Bilirubin [Mass/Vol] 1.1 mg/dL Normal 0.3-1.2 [facility] Comment on above: Result Comment: RESU LTS QUESTIONABLE DUE TO HEMOLYSIS Performed By: #### 1 23-9, 1751-7, BMP, 96920-5, CBC, 2731-8, 2777-1 #### [facility] ([id number]) [address], [address] [place] [address] Calcium [Mass/Vol] 8.5 mg/dL Normal 8.5-10.5 [facility] Comment on above: Performed By: #### 1 9122-9, 1750-7, BMP, 07885-6, CBC, 2731-8, 2777-1 #### [facility] ([id number]) [address], [address] [place] [address] Chloride [Moles/Vol] 106 mmol/L Normal 98-109 [facility] Comment on above: Performed By: #### 1 9122-9, 1750-7, BMP, 64167-6, CBC, 2731-8, 2777-1 #### [facility] ([id number]) [address], [address] [place] [address] CO2 [Moles/Vol] 18 mmol/L Low 22-32 [facility] Comment on above: Performed By: #### 1 9122-9, 1750-7, BMP, 29866-6, CBC, 2731-8, 2777-1 #### [facility] ([id number]) [address], [address] [place] [address] Creatinine [Mass/Vol] 1.67 mg/dL High 0.40-1.00 [facility] Comment on above: Result Comment: METH OD TRACEABLE TO IDMS STANDARD Performed By: #### 1 23-9, 175-7, BMP, 47818-2, CBC, 2731-8, 2777-1 #### [facility] ([id number]) [address], [address] [place] [address] GFR/1.73 sq M.predicted among non-blacks MDRD (S/P/Bld) [Vol rate/Area] 31 mL/min/{1.73_m2} Low >59 [facility] Comment on above: Result Comment: Reported eGFR is based on the CKD-EPI 2020 equation that does not use a race coefficient. Performed By: #### 1 91-9, 1750-7, BMP, 39049-0, CBC, 2731-8, 2777-1 #### [facility] ([id number]) [address] [address] [place] [address] Glucose [Mass/Vol] 182 mg/dL High 65-99 [facility] Comment on above: Performed By: #### 1 9122-9, 1750-7, BMP, 34853-4, CBC, 2731-8, 2777-1 #### [facility] ([id number]) [address] [address] [place] [address] Potassium [Moles/Vol] 5.6 mmol/L High 3.5-5.0 [facility] Comment on above: Result Comment: SPEC IMEN HEMOLYZED, RESULTS INCREASED Performed By: #### 1 9122-9, 1750-7, BMP, 43779-5, CBC, 2731-8, 2777-1 #### [facility] ([id number]) [address] [address] [place] [address] Protein [Mass/Vol] 7.3 g/dL Normal 6.0-8.0 [facility] Comment on above: Performed By: #### 1 9122-9, 1750-7, BMP, 96495-3, CBC, 2731-8, 2777-1 #### [facility] ([id number]) [address], [address] [place] [address] Sodium [Moles/Vol] 134 mmol/L Normal 134-146 [facility] Comment on above: Performed By: #### 1 23-9, 1750-7, BMP, 14592-6, CBC, 2731-8, 277-1 #### [facility] ([id number]) [address], [address] [place] [address] Urea nitrogen [Mass/Vol] 45 mg/dL High 5-27 [facility] Comment on above: Performed By: #### 1 9122-9, 1750-7, BMP, 51217-2, CBC, 2731-8, 2776-1 #### [facility] ([id number]) [address], [address] [place] [address] MAGNESIUMon 2024 Magnesium [Mass/Vol] 2.4 mg/dL Normal 1.8-2.6 [facility] Comment on above: Performed By: #### 1 9122-9, 1750-7, BMP, 92076-2, CBC, 2731-8, 2776-1 #### [facility] ([id number]) [address], [address] [place] [address] CBC AND AUTO DIFFon 06-14-20 24 ABSOLUTE BASOPHIL 0.0 X10E9/L Normal 0.0-0.2 [facility] Comment on above: Performed By: #### 1 91-9, 1750-7, BMP, 65262-2, CBC, 2731-8, 2777-1 #### [facility] ([id number]) [address], [address] [place] [address] ABSOLUTE NEUTROPHIL 8.2 X10E9/L High 1.5-6.6 [facility] Comment on above: Performed By: #### 1 23-9, 1750-7, BMP, 76957-4, CBC, 2731-8, 2777-1 #### [facility] ([id number]) [address], [address] [place] [address] Basophils/100 WBC (Bld) 0.1 % Normal [facility] Comment on above: Performed By: #### 1 9122-9, 1750-7, BMP, 72701-9, CBC, 273-8, 2776- #### [facility] ([id number]) [address], [address] [place] [address] Eosinophils (Bld) [#/Vol] 0.0 10*3/uL Normal 0.0-0.4 [facility] Comment on above: Performed By: #### 1 9122-9, 1750-7, BMP, 44255-9, CBC, 2730-8, 2776- #### [facility] ([id number]) [address], [facility] [address] [place] [address] Eosinophils/100 WBC (Bld) 0.0 % Normal [facility] Comment on above: Performed By: #### 1 9122-9, 1750-, BMP, 16162-3, CBC, 2730-, 2776- #### [facility] ([id number]) [address], [address] [place] [address] Erythrocyte distribution width (RBC) [Ratio] 14.9 % Normal 11.5-15.0 [facility] Comment on above: Performed By: #### 1 9122-9, 1751-05, BMP, 46889-3, CBC, 2730-, 2776- #### [facility] ([id number]) [address], [address] [place] [address] Hematocrit (Bld) [Volume fraction] 28.0 % Low 35-47 [facility] Comment on above: Performed By: #### 1 9122-9, 1750-7, BMP, 98028-3, CBC, 273-8, 2776- #### [facility] ([id number]) [address], [address] [place] [address] Hemoglobin (Bld) [Mass/Vol] 9.2 g/dL Low 11.7-15.5 [facility] Comment on above: Performed By: #### 1 23-9, 1750-7, BMP, 50257-8, CBC, 2730-8, 2776- #### [facility] ([id number]) [address], [address] [place] [address] Lymphocytes (Bld) [#/Vol] 1.1 10*3/uL Normal 1.0-3.5 [facility] Comment on above: Performed By: #### 1 23-9, 1750-7, BMP, 64826-2, CBC, 2730-8, 2776- #### [facility] ([id number]) [address], [address] [place] [address] Lymphocytes/100 WBC (Bld) 10.9 % Normal [facility] Comment on above: Performed By: #### 1 9122-9, 1750-7, BMP, 72749-6, CBC, 2731-06, 2776- #### [facility] ([id number]) [address], [address] [place] [address] MCH (RBC) [Entitic mass] 28.1 pg Normal 27-34 [facility] Comment on above: Performed By: #### 1 23-9, 1750-7, BMP, 03692-3, CBC, 2730-, 2776- #### [facility] ([id number]) [address], [address] [place] [address] MCHC (RBC) [Mass/Vol] 32.7 g/dL Normal 32-36 [facility] Comment on above: Performed By: #### 1 23-9, 1750-7, BMP, 52854-4, CBC, 2730-, 2776- #### [facility] ([id number]) [address], [address] [place] [address] MCV (RBC) [Entitic vol] 86 fL Normal 80-100 [facility] Comment on above: Performed By: #### 1 23-9, 175-7, BMP, 38740-4, CBC, 2731-8, 277-1 #### [facility] ([id number]) [address], [address] [place] [address] Monocytes (Bld) [#/Vol] 0.4 10*3/uL Normal 0-0.9 [facility] Comment on above: Performed By: #### 1 9122-9, 1750-7, BMP, 10277-2, CBC, 2731-8, 277-1 #### [facility] ([id number]) [address], [facility] [address] [place] [address] Monocytes/100 WBC (Bld) 4.0 % Normal [facility] Comment on above: Performed By: #### 1 9122-9, 1750-7, BMP, 85424-3, CBC, 273-8, 2776- #### [facility] ([id number]) [address], [address] [place] [address] Neutrophils/100 WBC (Bld) 85.0 % Normal [facility] Comment on above: Performed By: #### 1 23-9, 1750-7, BMP, 65079-3, CBC, 2731-8, 2776-1 #### [facility] ([id number]) [address], [address] [place] [address] Platelet mean volume (Bld) [Entitic vol] 8.5 fL Normal 7-12 [facility] Comment on above: Performed By: #### 1 23-9, 1750-7, BMP, 49728-6, CBC, 2731-8, 277-1 #### [facility] ([id number]) [address], [address] [place] [address] Platelets (Bld) [#/Vol] 194 10*3/uL Normal 150-450 [facility] Comment on above: Performed By: #### 1 23-9, 1751-7, BMP, 72577-1, CBC, 2731-8, 2777-1 #### [facility] ([id number]) [address], [address] [place] [address] RBC COUNT 3.26 X10E12/L Low 3.80-5.20 [facility] Comment on above: Performed By: #### 1 23-9, 175-7, BMP, 60818-0, CBC, 2731-8, 2777-1 #### [facility] ([id number]) [address], [facility] [address] [place] [address] WBC (Bld) [#/Vol] 9.7 10*3/uL Normal 4.0-11.0 [facility] Comment on above: Performed By: #### 1 9122-9, 1750-7, BMP, 98408-8, CBC, 2731-8, 2776-1 #### [facility] ([id number]) [address], [address] [place] [address] COMPREHENSIVE METABOLIC PANE Dickson 06-14-2024 Albumin [Mass/Vol] 3.6 g/dL Normal 3.2-5.3 [facility] Comment on above: Performed By: #### 1 23-9, 1750-7, BMP, 58774-2, CBC, 2731-8, 2777-1 #### [facility] ([id number]) [address], [address] [place] [address] ALP [Catalytic activity/Vol] 65 U/L Normal 39-130 [facility] Comment on above: Performed By: #### 1 23-9, 175-7, BMP, 55152-2, CBC, 2731-8, 2777-1 #### [facility] ([id number]) [address], [address] [place] [address] ALT [Catalytic activity/Vol] 14 U/L Normal 0-31 [facility] Comment on above: Performed By: #### 1 23-9, 1751-7, BMP, 95013-4, CBC, 2731-8, 2777-1 #### [facility] ([id number]) [address], [address] [place] [address] Anion gap [Moles/Vol] 7 mmol/L Normal 5-15 [facility] Comment on above: Performed By: #### 1 23-9, 175-7, BMP, 64088-8, CBC, 2731-8, 2777-1 #### [facility] ([id number]) [address], [address] [place] [address] AST [Catalytic activity/Vol] 19 U/L Normal 0-41 [facility] Comment on above: Performed By: #### 1 9122-9, 1750-7, BMP, 49405-8, CBC, 2731-8, 2777-1 #### [facility] ([id number]) [address], [address] [place] [address] Bilirubin [Mass/Vol] 0.7 mg/dL Normal 0.3-1.2 [facility] Comment on above: Performed By: #### 1 23-9, 1750-7, BMP, 76806-7, CBC, 2731-8, 2777-1 #### [facility] ([id number]) [address], [address] [place] [address] Calcium [Mass/Vol] 8.6 mg/dL Normal 8.5-10.5 [facility] Comment on above: Performed By: #### 1 23-9, 175-7, BMP, 77605-2, CBC, 2731-8, 2777-1 #### [facility] ([id number]) [address], [address] [place] [address] Chloride [Moles/Vol] 100 mmol/L Normal 98-109 [facility] Comment on above: Performed By: #### 1 23-9, 1751-7, BMP, 45798-1, CBC, 2731-8, 2777-1 #### [facility] ([id number]) [address], [address] [place] [address] CO2 [Moles/Vol] 24 mmol/L Normal 22-32 [facility] Comment on above: Performed By: #### 1 23-9, 175-7, BMP, 37902-2, CBC, 2731-8, 2777-1 #### [facility] ([id number]) [address] [facility], [address] [place] [address] Creatinine [Mass/Vol] 1.52 mg/dL High 0.40-1.00 [facility] Comment on above: Result Comment: METH OD TRACEABLE TO IDMS STANDARD Performed By: #### 1 9122-9, 1750-7, BMP, 97151-3, CBC, 2731-8, 2776-1 #### [facility] ([id number]) [address] [facility], [address] [place] [address] GFR/1.73 sq M.predicted among non-blacks MDRD (S/P/Bld) [Vol rate/Area] 35 mL/min/{1.73_m2} Low >59 [facility] Comment on above: Result Comment: Reported eGFR is based on the CKD-EPI 2020 equation that does not use a race coefficient. Performed By: #### 1 23-9, 1750-7, BMP, 07338-1, CBC, 2731-8, 277-1 #### [facility] ([id number]) [address] [facility] [address], [address] [place] [address] Glucose [Mass/Vol] 236 mg/dL High 65-99 [facility] Comment on above: Performed By: #### 1 23-9, 175-7, BMP, 50731-5, CBC, 2731-8, 2777-1 #### [facility] ([id number]) [address], [address] [place] [address] Potassium [Moles/Vol] 4.7 mmol/L Normal 3.5-5.0 [facility] Comment on above: Performed By: #### 1 9123-9, 1751-7, BMP, 93016-0, CBC, 2731-8, 2777-1 #### [facility] ([id number]) [address] [place] [address] Protein [Mass/Vol] 7.2 g/dL Normal 6.0-8.0 [facility] Comment on above: Performed By: #### 1 23-9, 1750-7, BMP, 50454-2, CBC, 2731-8, 2777-1 #### [facility] ([id number]) [address], [address] [place] [address] Sodium [Moles/Vol] 131 mmol/L Low 134-146 [facility] Comment on above: Performed By: #### 1 9123-9, 1750-7, BMP, 13475-4, CBC, 2731-8, 2777-1 #### [facility] ([id number]) [address], [address] [place] [address] Urea nitrogen [Mass/Vol] 32 mg/dL High 5-27 [facility] Comment on above: Performed By: #### 1 9123-9, 1750-7, BMP, 97440-3, CBC, 2731-8, 2777-1 #### [facility] ([id number]) [address], [address] [place] [address] Glucose Glucometer (dC) [M ass/Vol]on 06-14-2024 Glucose [Mass/Vol] 291 mg/dL High 65-99 [facility] Glucose [Mass/Vol] 288 mg/dL High 65-99 [facility] Glucose [Mass/Vol] 330 mg/dL High 65-99 [facility] Glucose [Mass/Vol] 271 mg/dL High 65-99 [facility] MAGNESIUMon 06-14-2024 Magnesium [Mass/Vol] 2.4 mg/dL Normal 1.8-2.6 [facility] Comment on above: Performed By: #### 1 9123-9, 1751-7, BMP, 57333-6, CBC, 2731-8, 2777-1 #### [facility] ([id number]) [address], [address] [place] [address] Magnesium [Mass/Vol] 1.7 mg/dL Low 1.8-2.6 [facility] Comment on above: Performed By: #### 1 9123-9, 1750-7, BMP, 23070-4, CBC, 2731-8, 7-1 #### [facility] ([id number]) [address], [address] [place] [address] Procalcitonin IA [Mass/Vol]o n 06-14-2024 PROCALCITONIN 0.15 ng/mL High <0.05 [facility] Comment on above: Result Comment: NOTE <0.50 ng/mL - Low risk of severe sepsis and/or septic shock. <2.00 ng/mL - Recommend retesting within 6-24 hours. >2.00 ng/mL - High risk of sepsis and/or septic shock. Performed By: #### 1 9123-9, 1750-7, BMP, 67608-8, CBC, 2731-8, 277-1 #### [facility] ([id number]) [address], [address] [place] [address] BLOOD CULTUREon 06-13-2024 Bacteria identified Aer cx Nom (Bld) SPECIMEN NOTES LEFT HAND CULTURE RESULTS NO GROWTH 5 DAYS Normal [facility] Comment on above: Performed By: #### 1 9123-9, 1751-7, BMP, 56240-2, CBC, 2731-8, 2777-1 #### [facility] ([id number]) [address], [address] [place] [address] Bacteria identified Aer cx Nom (Bld) SPECIMEN NOTES LEFT ANTECUBITAL CULTURE RESULTS NO GROWTH 5 DAYS Normal [facility] Comment on above: Performed By: #### 1 23-9, 1750-7, BMP, 48750-7, CBC, 2731-8, 277-1 #### [facility] [facility] ([id number]) [address], [address] [place] [address] CBC AND AUTO DIFFon 06-13-20 24 ABSOLUTE BASOPHIL 0.0 X10E9/L Normal 0.0-0.2 [facility] Comment on above: Performed By: #### 1 23-9, 1750-7, BMP, 94381-9, CBC, 2731-8, 2776-1 #### [facility] ([id number]) [address], [address] [place] [address] ABSOLUTE NEUTROPHIL 7.6 X10E9/L High 1.5-6.6 [facility] Comment on above: Performed By: #### 1 9122-9, 1750-7, BMP, 29561-9, CBC, 2731-8, 2776- #### [facility] ([id number]) [address], [address] [place] [address] Basophils/100 WBC (Bld) 0.4 % Normal [facility] Comment on above: Performed By: #### 1 9122-9, 1750-7, BMP, 12566-5, CBC, 2731-8, 2776-1 #### [facility] ([id number]) [address], [address] [place] [address] Eosinophils (Bld) [#/Vol] 0.0 10*3/uL Normal 0.0-0.4 [facility] Comment on above: Performed By: #### 1 23-9, 1750-7, BMP, 26699-0, CBC, 2731-8, 277-1 #### [facility] ([id number]) [address], [address] [place] [address] Eosinophils/100 WBC (Bld) 0.4 % Normal [facility] Comment on above: Performed By: #### 1 9123-9, 1751-7, BMP, 76659-6, CBC, 2731-8, 2776- #### [facility] ([id number]) [address], [address] [place] [address] Erythrocyte distribution width (RBC) [Ratio] 15.3 % High 11.5-15.0 [facility] Comment on above: Performed By: #### 1 23-9, 1750-7, BMP, 40081-7, CBC, 2730-8, 2776- #### [facility] ([id number]) [address] [address] [place] [address] Hematocrit (Bld) [Volume fraction] 33.3 % Low 35-47 [facility] Comment on above: Performed By: #### 1 23-9, 1750-7, BMP, 42032-3, CBC, 2730-8, 2776- #### [facility] ([id number]) [address], [address] [place] [address] Hemoglobin (Bld) [Mass/Vol] 10.8 g/dL Low 11.7-15.5 [facility] Comment on above: Performed By: #### 1 23-9, 1750-7, BMP, 18254-2, CBC, 273-8, 2776- #### [facility] ([id number]) [address] [address] [place] [address] Lymphocytes (Bld) [#/Vol] 1.3 10*3/uL Normal 1.0-3.5 [facility] Comment on above: Performed By: #### 1 23-9, 1750-7, BMP, 73036-5, CBC, 273-8, 2776-1 #### [facility] ([id number]) [address], [address] [place] [address] Lymphocytes/100 WBC (Bld) 14.0 % Normal [facility] Comment on above: Performed By: #### 1 23-9, 175-7, BMP, 24572-7, CBC, 273-8, 2776- #### [facility] ([id number]) [address], [address] [place] [address] MCH (RBC) [Entitic mass] 27.9 pg Normal 27-34 [facility] Comment on above: Performed By: #### 1 9122-9, 1750-7, BMP, 95294-8, CBC, 2731-06, 2776-11 #### [facility] ([id number]) [address], [address] [place] [address] MCHC (RBC) [Mass/Vol] 32.3 g/dL Normal 32-36 [facility] Comment on above: Performed By: #### 1 9122-9, 1750-7, BMP, 82125-9, CBC, 2730-, 2776-11 #### [facility] ([id number]) [address], [address] [place] [address] MCV (RBC) [Entitic vol] 87 fL Normal 80-100 [facility] Comment on above: Performed By: #### 1 9122-9, 1750-7, BMP, 45905-5, CBC, 2730-, 2776-11 #### [facility] ([id number]) [address], [address] [place] [address] Monocytes (Bld) [#/Vol] 0.6 10*3/uL Normal 0-0.9 [facility] Comment on above: Performed By: #### 1 23-9, 1750-7, BMP, 28057-0, CBC, 2730-, 2776- #### [facility] ([id number]) [address], [address] [place] [address] Monocytes/100 WBC (Bld) 6.0 % Normal [facility] Comment on above: Performed By: #### 1 9123-9, 1751-7, BMP, 37619-2, CBC, 2731-8, 2777-1 #### [facility] ([id number]) [address], [address] [place] [address] Neutrophils/100 WBC (Bld) 79.2 % Normal [facility] Comment on above: Performed By: #### 1 9123-9, 175-7, BMP, 01427-2, CBC, 2731-8, 2777-1 #### [facility] ([id number]) [address], [address] [place] [address] Platelet mean volume (Bld) [Entitic vol] 8.1 fL Normal 7-12 [facility] Comment on above: Performed By: #### 1 23-9, 175-7, BMP, 79438-3, CBC, 2731-8, 277-1 #### [facility] ([id number]) [address], [address] [place] [address] Platelets (Bld) [#/Vol] 267 10*3/uL Normal 150-450 [facility] Comment on above: Performed By: #### 1 23-9, 175-7, BMP, 74844-8, CBC, 2731-8, 2777-1 #### [facility] ([id number]) [address], [address] [place] [address] RBC COUNT 3.85 X10E12/L Normal 3.80-5.20 [facility] Comment on above: Performed By: #### 1 9123-9, 1751-7, BMP, 44108-1, CBC, 2731-8, 2777-1 #### [facility] ([id number]) [address], [address] [place] [address] WBC (Bld) [#/Vol] 9.6 10*3/uL Normal 4.0-11.0 [facility] Comment on above: Performed By: #### 1 9123-9, 1751-7, BMP, 38463-1, CBC, 2731-8, 2777-1 #### [facility] ([id number]) [address], [address] [place] [address] COMPREHENSIVE METABOLIC PANE Dickson 06-13-2024 Albumin [Mass/Vol] 4.2 g/dL Normal 3.2-5.3 [facility] Comment on above: Performed By: #### 1 23-9, 175-7, BMP, 75034-4, CBC, 2731-8, 2777-1 #### [facility] ([id number]) [address], [address] [place] [address] ALP [Catalytic activity/Vol] 82 U/L Normal 39-130 [facility] Comment on above: Performed By: #### 1 23-9, 1751-7, BMP, 26060-2, CBC, 2731-8, 2777-1 #### [facility] ([id number]) [address], [address] [place] [address] ALT [Catalytic activity/Vol] 14 U/L Normal 0-31 [facility] Comment on above: Performed By: #### 1 23-9, 1751-7, BMP, 40002-1, CBC, 2731-8, 2777-1 #### [facility] ([id number]) [address], [address] [place] [address] Anion gap [Moles/Vol] 11 mmol/L Normal 5-15 [facility] Comment on above: Performed By: #### 1 9123-9, 1751-7, BMP, 98324-3, CBC, 2731-8, 2777-1 #### [facility] ([id number]) [address], [address] [place] [address] AST [Catalytic activity/Vol] 19 U/L Normal 0-41 [facility] Comment on above: Performed By: #### 1 9123-9, 1751-7, BMP, 34819-1, CBC, 2731-8, 2777-1 #### [facility] ([id number]) [address], [address] [place] [address] Bilirubin [Mass/Vol] 0.4 mg/dL Normal 0.3-1.2 [facility] Comment on above: Performed By: #### 1 9123-9, 175-7, BMP, 35611-4, CBC, 2731-8, 2777-1 #### [facility] ([id number]) [address], [address] [place] [address] Calcium [Mass/Vol] 9.4 mg/dL Normal 8.5-10.5 [facility] Comment on above: Performed By: #### 1 23-9, 1751-7, BMP, 36833-1, CBC, 2731-8, 2777-1 #### [facility] ([id number]) [address], [address] [place] [address] Chloride [Moles/Vol] 100 mmol/L Normal 98-109 [facility] Comment on above: Performed By: #### 1 23-9, 1751-7, BMP, 03116-0, CBC, 2731-8, 2777-1 #### [facility] ([id number]) [address], [address] [place] [address] CO2 [Moles/Vol] 25 mmol/L Normal 22-32 [facility] Comment on above: Performed By: #### 1 9123-9, 1751-7, BMP, 65381-2, CBC, 2731-8, 2777-1 #### [facility] ([id number]) [address], [address] [place] [address] Creatinine [Mass/Vol] 1.38 mg/dL High 0.40-1.00 [facility] Comment on above: Result Comment: METH OD TRACEABLE TO IDMS STANDARD Performed By: #### 1 9123-9, 1751-7, BMP, 87090-0, CBC, 2731-8, 2777-1 #### [facility] ([id number]) [address], [address] [place] [address] GFR/1.73 sq M.predicted among non-blacks MDRD (S/P/Bld) [Vol rate/Area] 39 mL/min/{1.73_m2} Low >59 [facility] Comment on above: Result Comment: Reported eGFR is based on the CKD-EPI 2020 equation that does not use a race coefficient. Performed By: #### 1 91-9, 1750-7, BMP, 56847-7, CBC, 2731-8, 2777-1 #### [facility] ([id number]) [address], [address] [place] [address] Glucose [Mass/Vol] 159 mg/dL High 65-99 [facility] Comment on above: Performed By: #### 1 23-9, 175-7, BMP, 82701-5, CBC, 2731-8, 2777-1 #### [facility] ([id number]) [address], [address] [place] [address] Potassium [Moles/Vol] 4.6 mmol/L Normal 3.5-5.0 [facility] Comment on above: Performed By: #### 1 23-9, 175-7, BMP, 90009-9, CBC, 2731-8, 2777-1 #### [facility] ([id number]) [address], [address] [place] [address] Protein [Mass/Vol] 8.7 g/dL High 6.0-8.0 [facility] Comment on above: Performed By: #### 1 9123-9, 1751-7, BMP, 70236-0, CBC, 2731-8, 2777-1 #### [facility] ([id number]) [address] [place] [address] Sodium [Moles/Vol] 136 mmol/L Normal 134-146 [facility] Comment on above: Performed By: #### 1 9123-9, 1751-7, BMP, 51027-2, CBC, 2731-8, 2777-1 #### [facility] ([id number]) [address], [address] [place] [address] Urea nitrogen [Mass/Vol] 21 mg/dL Normal 5-27 [facility] Comment on above: Performed By: #### 1 9123-9, 1751-7, BMP, 12000-3, CBC, 2731-8, 2777-1 #### [facility] ([id number]) [address], [address] [place] [address] CT CTA CHESTon 06-13-2024 CT CTA CHEST [...] Tapia MD on 06/13/2024 8:31 AM Normal [facility] Fibrin D-dimer DDU (PPP) [Ma ss/Vol]on 06-13-2024 D DIMER 1666 ng/mL DDU High <255 [facility] Comment on above: Result Comment: Results >=255ng/mL DDU: Results may be indicative of the presence of VTE. The use of the Wells score and further diagnostic tests should be considered. Elevated D-Dimer levels can also be associated with DIC, neoplasm, , trauma and liver disease. Elevated levels of rheumatoid factor may lead to an overestimation of the D-Dimer level. Performed By: #### 1 9123-9, 1751-7, BMP, 51572-4, CBC, 2731-8, 2777-1 #### [facility] ([id number]) [address] [facility], [address] [place] [address] Glucose Glucometer (BldC) [M ass/Vol]on 06-13-2024 Glucose [Mass/Vol] 334 mg/dL High 65-99 [facility] Glucose [Mass/Vol] 316 mg/dL High 65-99 [facility] Glucose [Mass/Vol] 309 mg/dL High 65-99 [facility] Glucose [Mass/Vol] 221 mg/dL High 65-99 [facility] Glucose [Mass/Vol] 124 mg/dL High 65-99 [facility] Lactate (P obed) [Moles/Vol]o n 06-13-2024 Lactate [Moles/Vol] 1.5 mmol/L Normal 0.4-2.0 [facility] Comment on above: Performed By: #### 1 9123-9, 1751-7, BMP, 62533-2, CBC, 2731-8, 2777-1 #### [facility] ([id number]) [address], [address] [place] [address] LACTATE W/REFLEX 4.5 mmol/L Critically high 0.4-2.0 [facility] Comment on above: Performed By: #### 1 9123-9, 1751-7, BMP, 04997-1, CBC, 2731-8, 2777-1 #### [facility] ([id number]) [address] [facility], [address] [place] [address] Natriuretic peptide B [Mass/ Vol]on 06-13-2024 Natriuretic peptide B (Bld) [Mass/Vol] 134 pg/mL High <100.0 [facility] Comment on above: Performed By: #### 1 9123-9, 1751-7, BMP, 70534-7, CBC, 2731-8, 2777-1 #### [facility] ([id number]) [address] [facility], [address] [place] [address] SARS/FLU A+B/RSV by NAAT/Mol ecularon 06-13-2024 SARS/FLU [...] operators who are performing tests using either drumbi or Capseo systems and is limited to laboratories that [...] repeat. Fact Sheet for Healthcare Providers: https://www.fda.gov/med ia/475643/download Fact Sheet for Patients: https://www.fda.gov/med ia/672475/download Normal [facility] Comment on above: Performed By: #### 1 9123-9, 1751-7, BMP, 01368-7, CBC, 2731-8, 2777-1 #### [facility] ([id number]) [address] [facility], [address] [place] [address] Troponin I.cardiac High sens itivity method [Mass/Vol]on 06-13-2024 1 HOUR TROP I, HIGH SENSITIVITY 23 ng/L High <16 [facility] Comment on above: Result Comment: Elevations of hs-Troponin may be due to causes other than myocardial ischemia. Recommend serial hs-Troponin testing be performed. For the initial evaluation and management of chest pain patients, refer to the algorithms linked below. Emergency Patient: [email or web address] Inpatient: [email or web address] Performed By: #### 1 9123-9, 1751-7, BMP, 05942-6, CBC, 2731-8, 2777-1 #### [facility] ([id number]) [address], [address] [place] [address] TROPONIN I, HIGH SENSITIVITY 18 ng/L High <16 [facility] Comment on above: Result Comment: Elevations of hs-Troponin may be due to causes other than myocardial ischemia. Recommend serial hs-Troponin testing be performed. For the initial evaluation and management of chest pain patients, refer to the algorithms linked below. Emergency Patient: [email or web address] Inpatient: [email or web address] Performed By: #### 1 9123-9, 1751-7, BMP, 17613-9, CBC, 2731-8, 2777-1 #### [facility] ([id number]) [address], [address] [place] [address] URINALYSISon 06-13-2024 Bilirubin Ql (U) Negative Normal NEG [facility] Comment on above: Performed By: #### 1 9123-9, 1751-7, BMP, 65626-4, CBC, 2731-8, 2777-1 #### [facility] ([id number]) [address], [address] [place] [address] BLOOD/HGB SMALL Abnormal NEG [facility] Comment on above: Performed By: #### 1 23-9, 175-7, BMP, 75953-2, CBC, 2731-8, 277-1 #### [facility] ([id number]) [address], [address] [place] [address] Color (U) YELLOW Normal YELLOW [facility] Comment on above: Performed By: #### 1 23-9, 1750-7, BMP, 85406-0, CBC, 273-8, 277-1 #### [facility] ([id number]) [address], [address] [place] [address] Glucose Ql (U) 500 mg/dL Abnormal NEG [facility] Comment on above: Performed By: #### 1 23-9, 1750-7, BMP, 22443-8, CBC, 2731-8, 277-1 #### [facility] ([id number]) [address], [address] [place] [address] Ketones Ql (U) 15 mg/dL Abnormal NEG [facility] Comment on above: Performed By: #### 1 9122-9, 1750-7, BMP, 44648-1, CBC, 2731-8, 277-1 #### [facility] ([id number]) [address], [address] [place] [address] Leukocyte esterase Test strip Ql (U) Negative Normal NEG [facility] Comment on above: Performed By: #### 1 23-9, 1750-7, BMP, 78441-1, CBC, 2731-8, 2777-1 #### [facility] ([id number]) [address], [address] [place] [address] Nitrite Ql (U) Negative Normal NEG [facility] Comment on above: Performed By: #### 1 23-9, 175-7, BMP, 46505-2, CBC, 2731-8, 2777-1 #### [facility] ([id number]) [address], [address] [place] [address] pH (U) 7.0 [pH] Normal 5.0-8.5 [facility] Comment on above: Performed By: #### 1 9123-9, 1751-7, BMP, 67259-6, CBC, 2731-8, 2777-1 #### [facility] ([id number]) [address], [address] [place] [address] Protein Ql (U) Negative Normal NEG [facility] Comment on above: Performed By: #### 1 23-9, 1750-7, BMP, 40503-3, CBC, 2731-8, 2777-1 #### [facility] ([id number]) [address], [facility] [address] [place] [address] R.B.CELLS 1 /hpf Normal 0-5 [facility] Comment on above: Performed By: #### 1 23-9, 1750-7, BMP, 84141-7, CBC, 2731-8, 2777-1 #### [facility] ([id number]) [address], [address] [place] [address] Specific gravity (U) [Rel density] 1.015 Normal 1.003-1.035 [facility] Comment on above: Performed By: #### 1 23-9, 1750-7, BMP, 45866-2, CBC, 2731-8, 2777-1 #### [facility] ([id number]) [address] [address] [place] [address] SQUAMOUS EPITHELIUM 0 to 1 Normal 0-5 [facility] Comment on above: Performed By: #### 1 9123-9, 1751-7, BMP, 34673-5, CBC, 2731-8, 2777-1 #### [facility] ([id number]) [address] [address] [place] [address] TURBIDITY CLEAR Normal CLEAR [facility] Comment on above: Performed By: #### 1 9123-9, 1751-7, BMP, 34786-2, CBC, 2731-8, 2777-1 #### [facility] ([id number]) [address], [address] [place] [address] Urobilinogen Qn (U) 0.2 {Artie'U}/dL Normal <1.1 [facility] Comment on above: Performed By: #### 1 9123-9, 1751-7, BMP, 64222-8, CBC, 2731-8, 2777-1 #### [facility] ([id number]) [address], [address] [place] [address] W.B.CELLS 0 /hpf Normal 0-5 [facility] Comment on above: Performed By: #### 1 9123-9, 1751-7, BMP, 56136-0, CBC, 2731-8, 2777-1 #### [facility] ([id number]) [address] [place] [address] URINE CULTUREon 06-13-2024 Bacteria identified Cx Nom (U) CULTURE RESULTS <10,000 ORGANISMS/ML NORMAL URO GENITAL BAILEY Normal [facility] Comment on above: Performed By: #### 1 9123-9, 1751-7, BMP, 50659-0, CBC, 2731-8, 2777-1 #### [facility] ([id number]) [address], [address] [place] [address] XR CHEST 1 VWon 06-13-2024 XR CHEST [...] Khalil MD on 06/13/2024 7:25 AM Normal [facility] CANCER ANTIGEN 27.29on 06-02 CANCER ANTGN 27.29 11.5 U/mL Normal <=39.0 [facility] Comment on above: Result Comment: NOTE INTERPRETIVE [...] alone for a diagnosis of malignancy. Methodology: Siemens Teez.mobi IM BR 27.29 (BR) chemiluminescent immunoassay was used. Results obtained with different assay methods or kits cannot be used interchangeably. Performed By: [facility] [address] [place] [address] Machine Sewer: Brendon Ruiz MD, PhD CLIA Number: [id number] Performed By: #### 1 9123-9, 1751-7, BMP, 32192-3, CBC, 2731-8, 2777-1 #### [facility] ([id number]) [address] [facility] [facility] [place] [address] CBC AND AUTO DIFFon 06-02-20 24 ABSOLUTE BASOPHIL 0.0 X10E9/L Normal 0.0-0.2 [facility] Comment on above: Performed By: #### 1 9123-9, 1751-7, BMP, 05890-2, CBC, 2731-8, 2777-1 #### [facility] ([id number]) [address] [facility] [place] [address] ABSOLUTE NEUTROPHIL 3.2 X10E9/L Normal 1.5-6.6 [facility] Comment on above: Performed By: #### 1 23-9, 1750-7, BMP, 22978-5, CBC, 2731-8, 2776- #### [facility] ([id number]) [address], [address] [place] [address] Basophils/100 WBC (Bld) 0.7 % Normal [facility] Comment on above: Performed By: #### 1 9122-9, 1750-7, BMP, 81431-7, CBC, 273-8, 2776- #### [facility] ([id number]) [address], [address] [place] [address] Eosinophils (Bld) [#/Vol] 0.2 10*3/uL Normal 0.0-0.4 [facility] Comment on above: Performed By: #### 1 9122-9, 7, BMP, 93035-7, CBC, 2730-8, 2776- #### [facility] ([id number]) [address], [address] [place] [address] Eosinophils/100 WBC (Bld) 4.2 % Normal [facility] Comment on above: Performed By: #### 1 9122-9, 1750-, BMP, 97794-2, CBC, 2730-8, 2776- #### [facility] ([id number]) [address], [address] [place] [address] Erythrocyte distribution width (RBC) [Ratio] 15.2 % High 11.5-15.0 [facility] Comment on above: Performed By: #### 1 9122-9, 1750-7, BMP, 99453-0, CBC, 2731-8, 277-1 #### [facility] ([id number]) [address], [address] [place] [address] Hematocrit (Bld) [Volume fraction] 30.9 % Low 35-47 [facility] Comment on above: Performed By: #### 1 23-9, 175-7, BMP, 26326-7, CBC, 2731-8, 277-1 #### [facility] ([id number]) [address], [address] [place] [address] Hemoglobin (Bld) [Mass/Vol] 10.3 g/dL Low 11.7-15.5 [facility] Comment on above: Performed By: #### 1 23-9, 1750-7, BMP, 13619-9, CBC, 2730-8, 2776- #### [facility] ([id number]) [address] [address] [place] [address] Lymphocytes (Bld) [#/Vol] 1.4 10*3/uL Normal 1.0-3.5 [facility] Comment on above: Performed By: #### 1 9122-9, 1750-7, BMP, 79627-0, CBC, 2730-8, 2776- #### [facility] ([id number]) [address], [facility] [address] [place] [address] Lymphocytes/100 WBC (Bld) 26.6 % Normal [facility] Comment on above: Performed By: #### 1 9122-9, 1750-7, BMP, 66528-2, CBC, 2730-8, 2776- #### [facility] ([id number]) [address] [address] [place] [address] MCH (RBC) [Entitic mass] 28.7 pg Normal 27-34 [facility] Comment on above: Performed By: #### 1 23-9, 175-7, BMP, 85740-6, CBC, 2731-8, 2777-1 #### [facility] ([id number]) [address], [facility] [address] [place] [address] MCHC (RBC) [Mass/Vol] 33.2 g/dL Normal 32-36 [facility] Comment on above: Performed By: #### 1 9122-9, 1750-7, BMP, 94615-1, CBC, 273-8, 2776-1 #### [facility] ([id number]) [address], [address] [place] [address] MCV (RBC) [Entitic vol] 86 fL Normal 80-100 [facility] Comment on above: Performed By: #### 1 9122-9, 1750-7, BMP, 94038-1, CBC, 2730-8, 2776- #### [facility] ([id number]) [address], [address] [place] [address] Monocytes (Bld) [#/Vol] 0.4 10*3/uL Normal 0-0.9 [facility] Comment on above: Performed By: #### 1 9122-9, 1750-7, BMP, 20394-7, CBC, 2730-8, 2776- #### [facility] ([id number]) [address], [address] [place] [address] Monocytes/100 WBC (Bld) 7.4 % Normal [facility] Comment on above: Performed By: #### 1 9122-9, 1750-7, BMP, 72894-3, CBC, 273-8, 2776- #### [facility] ([id number]) [address], [address] [place] [address] Neutrophils/100 WBC (Bld) 61.1 % Normal [facility] Comment on above: Performed By: #### 1 9122-9, 1750-7, BMP, 83144-4, CBC, 273-8, 277-1 #### [facility] ([id number]) [address], [address] [place] [address] Platelet mean volume (Bld) [Entitic vol] 8.5 fL Normal 7-12 [facility] Comment on above: Performed By: #### 1 9123-9, 1751-7, BMP, 07295-8, CBC, 2731-8, 2777-1 #### [facility] ([id number]) [address], [address] [place] [address] Platelets (Bld) [#/Vol] 247 10*3/uL Normal 150-450 [facility] Comment on above: Performed By: #### 1 23-9, 175-7, BMP, 36974-3, CBC, 2731-8, 2777-1 #### [facility] ([id number]) [address], [address] [place] [address] RBC COUNT 3.58 X10E12/L Low 3.80-5.20 [facility] Comment on above: Performed By: #### 1 23-9, 1750-7, BMP, 06100-5, CBC, 2731-8, 2777-1 #### [facility] ([id number]) [address], [address] [place] [address] WBC (Bld) [#/Vol] 5.3 10*3/uL Normal 4.0-11.0 [facility] Comment on above: Performed By: #### 1 9123-9, 1750-7, BMP, 65296-3, CBC, 2731-8, 2777-1 #### [facility] ([id number]) [address], [address] [place] [address] COMPREHENSIVE METABOLIC PANE Dickson 06-02-2024 Albumin [Mass/Vol] 3.7 g/dL Normal 3.2-5.3 [facility] Comment on above: Performed By: #### 1 9123-9, 1751-7, BMP, 37935-5, CBC, 2731-8, 2777-1 #### [facility] ([id number]) [address], [address] [place] [address] ALP [Catalytic activity/Vol] 72 U/L Normal 39-130 [facility] Comment on above: Performed By: #### 1 9123-9, 1751-7, BMP, 15366-1, CBC, 2731-8, 2777-1 #### [facility] ([id number]) [address], [address] [place] [address] ALT [Catalytic activity/Vol] 10 U/L Normal 0-31 [facility] Comment on above: Performed By: #### 1 23-9, 175-7, BMP, 80327-1, CBC, 2731-8, 2777-1 #### [facility] ([id number]) [address], [address] [place] [address] Anion gap [Moles/Vol] 9 mmol/L Normal 5-15 [facility] Comment on above: Performed By: #### 1 23-9, 1750-7, BMP, 97950-8, CBC, 2731-8, 2777-1 #### [facility] ([id number]) [address], [address] [place] [address] AST [Catalytic activity/Vol] 16 U/L Normal 0-41 [facility] Comment on above: Performed By: #### 1 23-9, 1750-7, BMP, 95793-5, CBC, 2731-8, 2777-1 #### [facility] ([id number]) [address], [address] [place] [address] Bilirubin [Mass/Vol] 0.3 mg/dL Normal 0.3-1.2 [facility] Comment on above: Performed By: #### 1 9123-9, 1751-7, BMP, 74181-5, CBC, 2731-8, 2777-1 #### [facility] ([id number]) [address], [address] [place] [address] Calcium [Mass/Vol] 9.1 mg/dL Normal 8.5-10.5 [facility] Comment on above: Performed By: #### 1 23-9, 175-7, BMP, 16446-7, CBC, 2731-8, 2777-1 #### [facility] ([id number]) [address], [address] [place] [address] Chloride [Moles/Vol] 101 mmol/L Normal 98-109 [facility] Comment on above: Performed By: #### 1 23-9, 1750-7, BMP, 98690-0, CBC, 2731-8, 2777-1 #### [facility] ([id number]) [address], [address] [place] [address] CO2 [Moles/Vol] 29 mmol/L Normal 22-32 [facility] Comment on above: Performed By: #### 1 9122-9, 1750-7, BMP, 31244-5, CBC, 2731-8, 2777-1 #### [facility] ([id number]) [address], [address] [place] [address] Creatinine [Mass/Vol] 1.38 mg/dL High 0.40-1.00 [facility] Comment on above: Result Comment: METH OD TRACEABLE TO IDMS STANDARD Performed By: #### 1 9122-9, 1750-7, BMP, 09409-6, CBC, 2731-8, 2777-1 #### [facility] ([id number]) [address], [address] [place] [address] GFR/1.73 sq M.predicted among non-blacks MDRD (S/P/Bld) [Vol rate/Area] 39 mL/min/{1.73_m2} Low >59 [facility] Comment on above: Result Comment: Reported eGFR is based on the CKD-EPI 2020 equation that does not use a race coefficient. Performed By: #### 1 23-9, 1751-7, BMP, 25056-7, CBC, 2731-8, 2777-1 #### [facility] ([id number]) [address], [address] [place] [address] Glucose [Mass/Vol] 236 mg/dL High 65-99 [facility] Comment on above: Performed By: #### 1 23-9, 175-7, BMP, 78699-3, CBC, 2731-8, 2777-1 #### [facility] ([id number]) [address], [address] [place] [address] Potassium [Moles/Vol] 5.0 mmol/L Normal 3.5-5.0 [facility] Comment on above: Performed By: #### 1 23-9, 1750-7, BMP, 73992-0, CBC, 2731-8, 2777-1 #### [facility] ([id number]) [address], [address] [place] [address] Protein [Mass/Vol] 7.5 g/dL Normal 6.0-8.0 [facility] Comment on above: Performed By: #### 1 23-9, 1750-7, BMP, 25681-9, CBC, 2731-8, 2777-1 #### [facility] ([id number]) [address], [address] [place] [address] Sodium [Moles/Vol] 139 mmol/L Normal 134-146 [facility] Comment on above: Performed By: #### 1 23-9, 175-7, BMP, 04132-3, CBC, 2731-8, 2777-1 #### [facility] ([id number]) [address], [address] [place] [address] Urea nitrogen [Mass/Vol] 19 mg/dL Normal 5-27 [facility] Comment on above: Performed By: #### 1 23-9, 175-7, BMP, 91394-4, CBC, 2731-8, 2777-1 #### [facility] ([id number]) [address], [address] [place] [address] Cancer Ag 15-3 Qnon 06-02-20 24 CA 15 3 7.7 U/mL Normal 0.0-31.3 [facility] Comment on above: Result Comment: The method used for this test is Matheus Aldair DXI chemiluminescent immunoassay. Values obtained by different assay methods cannot be used interchangeably. Performed By: #### 1 9123-9, 1751-7, BMP, 49829-4, CBC, 2731-8, 2777-1 #### [facility] ([id number]) [address], [address] [place] [address] BASIC METABOLIC PANLon 04-13 Anion gap [Moles/Vol] 6 mmol/L Normal 5-15 [facility] Comment on above: Performed By: #### 1 9123-9, 1750-7, BMP, 61888-2, CBC, 2731-8, 2777-1 #### [facility] ([id number]) [address], [address] [place] [address] Calcium [Mass/Vol] 8.8 mg/dL Normal 8.5-10.5 [facility] Comment on above: Performed By: #### 1 9123-9, 1750-7, BMP, 03533-3, CBC, 2731-8, 2777-1 #### [facility] ([id number]) [address], [address] [place] [address] Chloride [Moles/Vol] 105 mmol/L Normal 98-109 [facility] Comment on above: Performed By: #### 1 9123-9, 175-7, BMP, 64201-3, CBC, 2731-8, 2777-1 #### [facility] ([id number]) [address], [address] [place] [address] CO2 [Moles/Vol] 26 mmol/L Normal 22-32 [facility] Comment on above: Performed By: #### 1 23-9, 1751-7, BMP, 15077-7, CBC, 2731-8, 2777-1 #### [facility] ([id number]) [address], [address] [place] [address] Creatinine [Mass/Vol] 1.53 mg/dL High 0.40-1.00 [facility] Comment on above: Result Comment: METH OD TRACEABLE TO IDMS STANDARD Performed By: #### 1 23-9, 175-7, BMP, 70089-7, CBC, 2731-8, 2777-1 #### [facility] ([id number]) [address], [address] [place] [address] GFR/1.73 sq M.predicted among non-blacks MDRD (S/P/Bld) [Vol rate/Area] 35 mL/min/{1.73_m2} Low >59 [facility] Comment on above: Result Comment: Reported eGFR is based on the CKD-EPI 2020 equation that does not use a race coefficient. Performed By: #### 1 23-9, 175-7, BMP, 42467-7, CBC, 273-8, 2777-1 #### [facility] ([id number]) [address], [address] [place] [address] Glucose [Mass/Vol] 107 mg/dL High 65-99 [facility] Comment on above: Performed By: #### 1 23-9, 175-7, BMP, 33618-4, CBC, 2731-8, 2777-1 #### [facility] ([id number]) [address], [address] [place] [address] Potassium [Moles/Vol] 4.1 mmol/L Normal 3.5-5.0 [facility] Comment on above: Performed By: #### 1 23-9, 175-7, BMP, 13894-9, CBC, 2731-8, 2777-1 #### [facility] ([id number]) [address], [address] [place] [address] Sodium [Moles/Vol] 137 mmol/L Normal 134-146 [facility] Comment on above: Performed By: #### 1 9123-9, 1751-7, BMP, 00659-2, CBC, 273-8, 2776-1 #### [facility] ([id number]) [address], [address] [place] [address] Urea nitrogen [Mass/Vol] 27 mg/dL Normal 5-27 [facility] Comment on above: Performed By: #### 1 9123-9, 1750-7, BMP, 45531-3, CBC, 273-8, 2776- #### [facility] ([id number]) [address], [address] [place] [address] CBC AND AUTO DIFFon 05-30-20 24 ABSOLUTE BASOPHIL 0.0 X10E9/L Normal 0.0-0.2 [facility] Comment on above: Performed By: #### Renita BCA, BMP #### [facility] ([id number]) [address] [place] [address] #### HA1C #### [facility] ([id number]) [address], [address] [place] [address] ABSOLUTE NEUTROPHIL 6.3 X10E9/L Normal 1.5-6.6 [facility] Comment on above: Performed By: #### Renita BCA, BMP #### [facility] ([id number]) [address] [place] [address] #### HA1C #### [facility] ([id number]) [address], [address] [place] [address] Basophils/100 WBC (Bld) 0.5 % Normal [facility] Comment on above: Performed By: #### C BCA, BMP #### [facility] ([id number]) [address] [place] [address] #### HA1C #### [facility] ([id number]) [address], [address] [place] [address] Eosinophils (Bld) [#/Vol] 0.7 10*3/uL High 0.0-0.4 [facility] Comment on above: Performed By: #### C BCA, BMP #### [facility] ([id number]) [address] [place] [address] #### HA1C #### [facility] ([id number]) [address] [facility], [address] [place] [address] Eosinophils/100 WBC (Bld) 6.6 % Normal [facility] Comment on above: Performed By: #### C BCA, BMP #### [facility] ([id number]) [address] [place] [address] #### HA1C #### [facility] ([id number]) [address] [place] [address] Erythrocyte distribution width (RBC) [Ratio] 14.9 % Normal 11.5-15.0 [facility] Comment on above: Performed By: #### C BCA, BMP #### [facility] ([id number]) [address] [place] [address] #### HA1C #### [facility] ([id number]) [address], [address] [place] [address] Hematocrit (Bld) [Volume fraction] 26.3 % Low 35-47 [facility] Comment on above: Performed By: #### C BCA, BMP #### [facility] ([id number]) [address] [place] [address] #### HA1C #### [facility] ([id number]) [address], [address] [place] [address] Hemoglobin (Bld) [Mass/Vol] 8.9 g/dL Low 11.7-15.5 [facility] Comment on above: Performed By: #### C [place], BMP #### [facility] ([id number]) [address] [place] [address] #### HA1C #### [facility] ([id number]) [address] [facility], [address] [place] [address] Lymphocytes (Bld) [#/Vol] 1.6 10*3/uL Normal 1.0-3.5 [facility] Comment on above: Performed By: #### C [place], BMP #### [facility] ([id number]) [address] [place] [address] #### HA1C #### [facility] ([id number]) [address] [facility], [address] [place] [address] Lymphocytes/100 WBC (Bld) 16.8 % Normal [facility] Comment on above: Performed By: #### C [place], BMP #### [facility] ([id number]) [address] [place] [address] #### HA1C #### [facility] ([id number]) [address] [place] [address] MCH (RBC) [Entitic mass] 29.2 pg Normal 27-34 [facility] Comment on above: Performed By: #### C BCA, BMP #### [facility] ([id number]) [address] [place] [address] #### HA1C #### [facility] ([id number]) [address] [facility], [address] [place] [address] MCHC (RBC) [Mass/Vol] 33.7 g/dL Normal 32-36 [facility] Comment on above: Performed By: #### C BCA, BMP #### [facility] ([id number]) [address] [place] [address] #### HA1C #### [facility] ([id number]) [address], [address] [place] [address] MCV (RBC) [Entitic vol] 87 fL Normal 80-100 [facility] Comment on above: Performed By: #### C BCA, BMP #### [facility] ([id number]) [address] [place] [address] 36568 #### HA1C #### [facility] ([id number]) [address], [address] [place] [address] Monocytes (Bld) [#/Vol] 1.1 10*3/uL High 0-0.9 [facility] Comment on above: Performed By: #### C BCA, BMP #### [facility] ([id number]) [address] [place] [address]773 #### HA1C #### [facility] ([id number]) [address], [address] [place] [address] Monocytes/100 WBC (Bld) 11.5 % Normal [facility] Comment on above: Performed By: #### C BCA, BMP #### [facility] ([id number]) [address] [place] [address] #### HA1C #### [facility] ([id number]) [address], [address] [place] [address] Neutrophils/100 WBC (Bld) 64.6 % Normal [facility] Comment on above: Performed By: #### C BCA, BMP #### [facility] ([id number]) [address] [place] [address] 87[address] #### HA1C #### [facility] ([id number]) [address], [address] [place] [address] Platelet mean volume (Bld) [Entitic vol] 8.1 fL Normal 7-12 [facility] Comment on above: Performed By: #### C BCA, BMP #### [facility] ([id number]) [address] [place] [address] #### HA1C #### [facility] ([id number]) [address] [facility], [address] [place] [address] Platelets (Bld) [#/Vol] 245 10*3/uL Normal 150-450 [facility] Comment on above: Performed By: #### C BCA, BMP #### [facility] ([id number]) [address] [place] [address] #### HA1C #### [facility] ([id number]) [address] [facility], [address] [place] [address] RBC COUNT 3.03 X10E12/L Low 3.80-5.20 [facility] Comment on above: Performed By: #### C BCA, BMP #### [facility] ([id number]) [address] [place] [address] #### HA1C #### [facility] ([id number]) [address], [address] [place] [address] WBC (Bld) [#/Vol] 9.8 10*3/uL Normal 4.0-11.0 [facility] Comment on above: Performed By: #### C BCA, BMP #### [facility] ([id number]) [address] [place] [address] #### HA1C #### [facility] ([id number]) [address], [address] [place] [address] HGB A1C (GLYCO-HGB)on 2023 Glucose [Mass/Vol] 171 mg/dL Normal [facility] Comment on above: Performed By: #### 1 9123-9, 1751-7, BMP, 25947-5, CBC, 2731-8, 2777-1 #### [facility] ([id number]) [address], [address] [place] [address] HbA1c (Bld) [Mass fraction] 7.6 % High 4.4-5.6 [facility] Comment on above: Result Comment: NOTE ADA Guidelines Result HgbA1c Normal : less than 5.7 % Prediabetes : 5.7 % to 6.4 % Diabetes : > 6.4 % Use with caution in patients with abnormal hemoglobin variants as the half-life of red blood cells and in vivo glycation rates are affected. Performed By: #### 1 9123-9, 1751-7, BMP, 49480-5, CBC, 2731-8, 2777-1 #### [facility] ([id number]) [address] [facility] [place] [address] CT HEAD WO IV CONTRASTon CT HEAD [...] as reasonably achievable. Electronically signed: Eddi Tapia. [facility] Comment on above: Order Comment: In on e year, follow up ventricle size s/p [employer] shunt Follow-Upon 03-16-2024 Follow-Up [id number] Jb Goodwin 1945 F Date Provider Department Center 03/16/2024 [facility] [place] Family History Problem Relation Age of Onset Diabetes Mother Hypertension Father Coronary artery disease Father Family Status - Relation Status Age at Mother Father Level of Service:60830 DC OFFICE/OUTPATIENT ESTABLISHED MOD MDM 30 MIN Reason for Visit and Comments: Follow-up [331144] - Pt is here for a [address]/VPSS. [facility] 36on 02-28-2024 36 LVM with pt's daught er updating her on above mentioned. [facility] 36 Pt's daughter Isidoro arnett called stating that pt is currently admitted to [facility] for possible stroke. Ileana stated that pt's speech was slurred and right side of face was drooping. [place] is needing Shunt make and model numbers prior to MRI. I am unable to locate. [facility] PET CT SKULL TO THIGHon PET [...] Acevedo MD on 02/20/2024 6:48 PM Normal [facility] 36on 02-11-2024 36 Spoke with daughter. Daughter stated that she would like to keep CT and appt times as is. No further action needed. Normal [facility] 36on 02-10-2024 36 Pts daughter called in requesting if Pts appt could be moved up along with her CT to 03/06/24 due to traveling. Daughter states hse has an appt here at 2:45 Please Advise. Thank You [facility] Telephoneon 02-10-2024 Telephone [phone] Jb Goodwin 1945 F Date Provider Department Center 02/10/2024 [facility] [place] Family History Problem Relation Age of Onset Diabetes Mother Hypertension Father Coronary artery disease Father Family Status - Relation Status Age at Mother Father [facility] POCT urinalysis dipstick onl yon 02-09-2024 Appearance (U) cloudy [facility] External Poct Urine Bilirubin Negative [facility] External [facility] Urine Blood Trace [facility] External Poct Urine Color yellow [facility] External Poct Urine Glucose Negative [facility] External Poct Urine Ketones Negative [facility] External Poct Urine Leukocyte Esterase 2+ [facility] External Poct Urine Nitrite Positive [facility] Urine Ph 6.5 [facility] External Poct Urine Protein Trace [facility] External Poct Urine Specific [place] 1.020 [facility] External Poct Urine Urobilinogen 0.2 [facility] URINE CULTUREon 02-09-2024 Bacteria identified Cx [...] F TRIMETH/SULFAMETHOXAZOL E S <=/19 F Susceptible [facility] Comment on above: Performed By: #### 6 30-4 #### [facility] ([id number]) [address] [place] [address] 36on 02-07-2024 36 LVM for pt of upcomi ng CT/VPSS and follow up with Vale Bowser CNP. Reminder letter sent to pt's home. Normal [facility] ALBUMINon 01-10-2024 Albumin [Mass/Vol] 4.0 g/dL Normal 3.2-5.3 [facility] Comment on above: Performed By: #### 1 9123-9, 1751-7, BMP, 07017-4, CBC, 2731-8, 2777-1 #### [facility] ([id number]) [address] [place] [address] BASIC METABOLIC PANLon 01-10 Anion gap [Moles/Vol] 8 mmol/L Normal 5-15 [facility] Comment on above: Performed By: #### 1 9123-9, 1751-7, BMP, 16817-4, CBC, 2731-8, 2777-1 #### [facility] ([id number]) [address] [place] [address] Calcium [Mass/Vol] 9.1 mg/dL Normal 8.5-10.5 [facility] Comment on above: Performed By: #### 1 9123-9, 1751-7, BMP, 55524-8, CBC, 2731-8, 2776-1 #### [facility] ([id number]) [address] [place] [address] Chloride [Moles/Vol] 101 mmol/L Normal 98-109 [facility] Comment on above: Performed By: #### 1 23-9, 1750-7, BMP, 14715-0, CBC, 2730-8, 2776-1 #### [facility] ([id number]) [address], [address] [place] [address] CO2 [Moles/Vol] 29 mmol/L Normal 22-32 [facility] Comment on above: Performed By: #### 1 23-9, 1750-7, BMP, 31900-5, CBC, 273-8, 2776-1 #### [facility] ([id number]) [address], [address] [place] [address] Creatinine [Mass/Vol] 1.46 mg/dL High 0.40-1.00 [facility] Comment on above: Result Comment: METH OD TRACEABLE TO IDMS STANDARD Performed By: #### 1 9122-9, 1750-7, BMP, 32889-6, CBC, 2730-8, 2776-1 #### [facility] ([id number]) [address], [address] [place] [address] GFR/1.73 sq M.predicted among non-blacks MDRD (S/P/Bld) [Vol rate/Area] 37 mL/min/{1.73_m2} Low >59 [facility] Comment on above: Result Comment: Reported eGFR is based on the CKD-EPI 2020 equation that does not use a race coefficient. Performed By: #### 1 23-9, 1750-7, BMP, 38806-5, CBC, 273-8, 2776-1 #### [facility] ([id number]) [address], [address] [place] [address] Glucose [Mass/Vol] 300 mg/dL High 65-99 [facility] Comment on above: Performed By: #### 1 23-9, 1751-7, BMP, 37686-6, CBC, 2731-8, 2777-1 #### [facility] ([id number]) [address], [address] [place] [address] Potassium [Moles/Vol] 4.4 mmol/L Normal 3.5-5.0 [facility] Comment on above: Performed By: #### 1 23-9, 1751-7, BMP, 80992-9, CBC, 2731-8, 2777-1 #### [facility] ([id number]) [address], [address] [place] [address] Sodium [Moles/Vol] 138 mmol/L Normal 134-146 [facility] Comment on above: Performed By: #### 1 9122-9, 1750-7, BMP, 65763-9, CBC, 2731-8, 2777-1 #### [facility] ([id number]) [address], [address] [place] [address] Urea nitrogen [Mass/Vol] 26 mg/dL Normal 5-27 [facility] Comment on above: Performed By: #### 1 23-9, 1-7, BMP, 73313-7, CBC, 2731-8, 2777-1 #### [facility] ([id number]) [address], [address] [place] [address] COMPLETE BLOOD COUNTon 01-10 Erythrocyte distribution width (RBC) [Ratio] 15.2 % High 11.5-15.0 [facility] Comment on above: Performed By: #### 1 23-9, 1751-7, BMP, 68089-7, CBC, 2731-8, 2777-1 #### [facility] ([id number]) [address], [address] [place] [address] Hematocrit (Bld) [Volume fraction] 31.6 % Low 35-47 [facility] Comment on above: Performed By: #### 1 23-9, 1750-7, BMP, 36486-5, CBC, 273-8, 2776-1 #### [facility] ([id number]) [address], [address] [place] [address] Hemoglobin (Bld) [Mass/Vol] 10.3 g/dL Low 11.7-15.5 [facility] Comment on above: Performed By: #### 1 9122-9, 1750-7, BMP, 49725-1, CBC, 2730-8, 2776-1 #### [facility] ([id number]) [address], [address] [place] [address] MCH (RBC) [Entitic mass] 27.7 pg Normal 27-34 [facility] Comment on above: Performed By: #### 1 9122-9, 1750-7, BMP, 86399-1, CBC, 2730-8, 2776- #### [facility] ([id number]) [address], [address] [place] [address] MCHC (RBC) [Mass/Vol] 32.5 g/dL Normal 32-36 [facility] Comment on above: Performed By: #### 1 9122-9, 1750-7, BMP, 84451-2, CBC, 2730-8, 2776- #### [facility] ([id number]) [address], [address] [place] [address] MCV (RBC) [Entitic vol] 85 fL Normal 80-100 [facility] Comment on above: Performed By: #### 1 9122-9, 1750-7, BMP, 38093-1, CBC, 273-8, 277-1 #### [facility] ([id number]) [address], [address] [place] [address] Platelet mean volume (Bld) [Entitic vol] 8.5 fL Normal 7-12 [facility] Comment on above: Performed By: #### 1 23-9, 1751-7, BMP, 27803-8, CBC, 2731-8, 2777-1 #### [facility] ([id number]) [address], [address] [place] [address] Platelets (Bld) [#/Vol] 231 10*3/uL Normal 150-450 [facility] Comment on above: Performed By: #### 1 23-9, 1750-7, BMP, 06355-7, CBC, 2731-8, 2777-1 #### [facility] ([id number]) [address], [address] [place] [address] RBC COUNT 3.70 X10E12/L Low 3.80-5.20 [facility] Comment on above: Performed By: #### 1 9122-9, 1750-7, BMP, 70834-1, CBC, 2731-8, 2777-1 #### [facility] ([id number]) [address], [address] [place] [address] WBC (Bld) [#/Vol] 4.8 10*3/uL Normal 4.0-11.0 [facility] Comment on above: Performed By: #### 1 23-9, 1750-7, BMP, 58209-6, CBC, 2731-8, 277-1 #### [facility] ([id number]) [address], [address] [place] [address] HGB A1C (GLYCO-HGB)on 2023 Glucose [Mass/Vol] 203 mg/dL Normal [facility] Comment on above: Performed By: #### 1 23-9, 175-7, BMP, 22840-1, CBC, 2731-8, 2777-1 #### [facility] ([id number]) [address], [address] [place] [address] HbA1c (Bld) [Mass fraction] 8.7 % High 4.4-5.6 [facility] Comment on above: Result Comment: NOTE ADA Guidelines Result HgbA1c Normal : less than 5.7 % Prediabetes : 5.7 % to 6.4 % Diabetes : > 6.4 % Use with caution in patients with abnormal hemoglobin variants as the half-life of red blood cells and in vivo glycation rates are affected. Performed By: #### 1 9123-9, 1751-7, BMP, 73243-0, CBC, 2731-8, 2777-1 #### [facility] ([id number]) [address], [address] [place] [address] MAGNESIUMon 01-10-2024 Magnesium [Mass/Vol] 1.9 mg/dL Normal 1.8-2.6 [facility] Comment on above: Performed By: #### 1 9123-9, 1750-7, BMP, 97077-5, CBC, 2731-8, 2777-1 #### [facility] ([id number]) [address], [address] [place] [address] PHOSPHORUSon 01-10-2024 Phosphate [Mass/Vol] 3.8 mg/dL Normal 2.4-4.9 [facility] Comment on above: Performed By: #### 1 9123-9, 1750-7, BMP, 04297-8, CBC, 2731-8, 2777-1 #### [facility] ([id number]) [address], [address] [place] [address] Parathyrin.intact [Mass/Vol] on 01-10-2024 PTH INTACT 71 pg/mL Normal 12-88 [facility] Comment on above: Performed By: #### 1 9123-9, 1750-7, BMP, 26547-5, CBC, 2731-8, 2777-1 #### [facility] ([id number]) [address] [facility] [address], [address] [place] [address] Vitamin D+Metabolites [Mass/ Vol]on 01-10-2024 VITAMIN D 25 HYD TOT 38.9 ng/mL Normal 30-100 [facility] Comment on above: Result Comment: Vitamin D status 25 [place] Vitamin D Deficiency <20 ng/mL Insufficiency 20-29 ng/mL Sufficiency 30-100 ng/mL Toxicity >100 ng/mL NOTE: A pediatric reference range has not been established by the inspector outside production of this kit. The [place] [employer] recommends a Vitamin D level of = or >20ng/mL in infants and children. Performed By: #### 1 9123-9, 1751-7, BMP, 58362-6, CBC, 2731-8, 2777-1 #### [facility] ([id number]) [address], [address] [place] [address] Follow-Upon 03-23-2023 Follow-Up [id number] Jb Goodwin Y 1945 F Date Provider Department Center 03/23/2023 [facility] Second Fl Family History Problem Relation Age of Onset Diabetes Mother Hypertension Father Coronary artery disease Father Family Status - Relation Status Age at Mother Father Level of Service:03613 DC OFFICE/OUTPATIENT ESTABLISHED LOW MDM 20-29 MIN Reason for Visit and Comments: Follow-up [345581] - shunt check s/p mri; Patient has been off balance. Normal [facility] CT CARDIAC W C [facility] M[facility] CARD ONLYon 01-18-2023 CT CARDIAC W C [facility] MORP CARD ONLY EXAMINATION: CT HEART [...] valve measurements were analyzed and provided by [facility] and are reported separately to the cardiology department. 3. Severe triple-vessel coronary artery calcifications. 4. Small sliding hiatal hernia. Interpreted by: Brennan Parra MD Signed by: Brennan Parra MD 01/18/23 Final result Normal [place] CTA CHEST ABDOMEN PELVIS W C [facility] 01-15-2023 CTA CHEST ABDOMEN PELVIS [...] with a couple of ill-defined sclerotic foci. [employer]RI[employer]INEERING MA[employer] shunt tubing in the right neck and [...] adenopathy. Very small fat containing umbilical hernia. INDUSTRIAL ENGINEERING MANAGER shunt tubing enters the abdomen in the [...] pelvis which may be related to the INDUSTRIAL ENGINEERING MANAGER shunt catheter. There is a cystic left [...] for planned (more content not included)... Normal [place] No acute abnormality identified on CTA of [...] recommended. 5 mm subpleural right lung nodule. INDUSTRIAL ENGINEERING MANAGER shunt noted. Small hiatal hernia. The findings [...] Findings Committee. J Am Janel Radiol 2010;7:754-773 [facility] RIS CONSOLIDATED EXAMINATION: CTA OF [...] with a couple of ill-defined sclerotic foci. INDUSTRIAL ENGINEERING MANAGER shunt tubing in the right neck and [...] adenopathy. Very small fat containing umbilical hernia. INDUSTRIAL ENGINEERING MANAGER shunt tubing enters the abdomen in the [...] pelvis which may be related to the INDUSTRIAL ENGINEERING MANAGER shunt catheter. There is a cystic left [...] in the left flank and gluteal regions. [facility] Tato Whaley MD - 01/15/2023 [...] with a couple of ill-defined sclerotic foci. INDUSTRIAL ENGINEERING MANAGER shunt tubing in the right neck and [...] adenopathy. Very small fat containing umbilical hernia. INDUSTRIAL ENGINEERING MANAGER shunt tubing enters the abdomen in the [...] pelvis which may be related to the INDUSTRIAL ENGINEERING MANAGER shunt catheter. There is a cystic left [...] and gluteal regions. (more content not included)... [employer] Work Phone: CTA CHEST ABDOMEN PELVIS W C ONTRASTOrdered By: aTto Syed on 01-15-2023 [employer] Phone: PULMONARY FUNCTIONon 023 [address] [place] [address] [id number] PULMONARY FUNCTION PATIENT NAME: CUCA GOODWIN : 1945 MED REC NO: [id number] ROOM: ACCOUNT NO: [id number] ADMIT DATE: 01/13/2023 PROVIDER: Whit Maloney DATE [...] correlation is recommended. WHIT MALONEY [id number] Doc#: [id number] CC: Normal [place] CTA [facility] Radiology Study observation (narrative) [facility] [employer] Work Phone: POC Glucose Fingerstickon Glucose [Mass/Vol] 104 mg/dL 65 - 105 mg/dL [facility] [employer] [facility] [employer] Basic Metabolic Panelon 11-16 Anion gap [Moles/Vol] 11 mmol/L 9 - 17 mmol/L [facility] [employer] Calcium [Mass/Vol] 9.0 mg/dL 8.6 - 10. 4 mg/dL [facility] Pen[facility] Chloride [Moles/Vol] 105 mmol/L 98 - 107 mmol/L [facility] CO2 [Moles/Vol] 20 mmol/L 20 - 31 [...] [Mass/Vol] 17 mg/dL 8 - 23 mg/dL [facility] Basic Metabolic Profon 12-10 Anion gap [Moles/Vol] 11 mmol/L Normal 9-17 [place] Comment on above: Performed By: #### H H, BMPX #### [facility] [address] [place], [place] [id number] [employer] Tube Grader: Luis Solis MD Calcium [Mass/Vol] 9.0 mg/dL Normal 8.6-10.4 [place] Comment on above: Performed By: #### H H, BMPX #### [facility] [address] [place], [place] [id number] [employer]ader: Luis Solis MD Chloride [Moles/Vol] 105 mmol/L Normal 98-107 [place] Comment on above: Performed By: #### H H, BMPX #### [facility] [place] [address] [employer]ader: Luis Solis MD CO2 [Moles/Vol] 20 mmol/L Normal 20-31 [place] Comment on above: Performed By: #### H H, BMPX #### [facility] [address] [place] [address] [employer]ader: Luis Solis MD Creatinine [Mass/Vol] 1.04 mg/dL High 0.50-0.90 [place] Comment on above: Performed By: #### H H, BMPX #### [facility] [employer] [address] [place] [address] [employer] Grader: Luis Solis MD GFR/1.73 sq M.predicted among non-blacks MDRD (S/P/Bld) [Vol rate/Area] 56 mL/min/{1.73_m2} Low >60 [place] Comment on above: Result Comment: These results [...] Performed By: #### H H, BMPX #### [facility] [address] [place] [address] [employer]ader: Luis Solis MD Glucose [Mass/Vol] 131 mg/dL High 70-99 [place] Comment on above: Performed By: #### H H, BMPX #### [facility] [address] [place] [address] [employer]ader: Luis Solis MD Potassium [Moles/Vol] 4.3 mmol/L Normal 3.7-5.3 [place] Comment on above: Performed By: #### H H, BMPX #### [facility] [address] [place] [address] [employer] Tube Grader: Luis Solis MD Sodium [Moles/Vol] 136 mmol/L Normal 135-144 [place] Comment on above: Performed By: #### H H, BMPX #### [facility] [address] [place] [address] [phone] [employer] Grader: Luis Solis MD Urea nitrogen [Mass/Vol] 17 mg/dL Normal 8-23 [place] Comment on above: Performed By: #### H H, BMPX #### [facility] [address] [place] [address] [employer] Grader: Luis Solis MD Hemoglobin and Hematocriton 12-10-2022 Hematocrit (Bld) [Volume fraction] 25.5 % Low 36.3 - 47.1 % [facility] Hemoglobin (Bld) [Mass/Vol] 7.9 g/dL Low 11.9 - 15.1 g/dL [facility] Interpretation and review of laboratory results Abnormal [facility] Hgb/Hcton 12-10-2022 Hematocrit (Bld) [Volume fraction] 25.5 % Low 36.3-47.1 [place] Comment on above: Performed By: #### H H, BMPX #### [employer] [address] [place] [address] [id number] Paper Tube Grader: Luis Solis MD Hemoglobin (Bld) [Mass/Vol] 7.9 g/dL Low 11.9-15.1 [place] Comment on above: Performed By: #### H H, BMPX #### [employer] [address] [place] [address] Paper Tube Grader: Luis Solis MD Laboratory - Blood bankon Blood product type Nom (BPU) Leukocyte Reduced Red Cell [facility] No Panel Informationon 12-10 Blood Bank ISBT Product Blood Type 9500 [facility] Blood Bank Unit Type and Rh Negative [facility] Crossmatch Result COMPATIBLE [facility] Dispense Status TRANSFUSED [facility] Transfusion Status OK TO TRANSFUSE B ON [facility] Unit Divison 0 [facility] POC Glucose Fingerstickon Glucose [Mass/Vol] 105 mg/dL 65 - 105 mg/dL [facility] Glucose [Mass/Vol] 119 mg/dL High 65 - 105 mg/dL [facility] Interpretation and review of laboratory results Abnormal [facility] Glucose [Mass/Vol] 159 mg/dL High 65 - 105 mg/dL [facility] Interpretation and review of laboratory results Abnormal [facility] Glucose [Mass/Vol] 70 mg/dL 65 - 105 mg/dL [facility] Glucose [Mass/Vol] 41 mg/dL Low 65 - 105 mg/dL [facility] Comment on above: Critical Noted Interpretation and review of laboratory results Abnormal [facility] TYPE AND SCREENon 12-10-2022 ABO/Rh Negative [facility] Arm Band Number [id number] [facility] Blood Bank Blood Product Expiration Date 509127411022 [facility] Blood Bank Blood Product Expiration Date [id number] [facility] Blood Bank Blood Product Expiration Date [id number] [facility] Blood product unit ID (Dose) [#] [id number] [facility] Blood product unit ID (Dose) [#] [id number] [facility] Blood product unit ID (Dose) [#] [id number] [facility] Expiration Date 12/10/2022,2359 [facility] Product Code Blood Bank [id number] [facility] Product Code Blood Bank L0105N07 [facility] Product Code Blood Bank [id number] [facility] Unit Issue Date/Time 903610870514 [facility] Unit Issue Date/Time [id number] [facility] Unit Issue Date/Time 236414273708 [facility] Basic Metab w/rfx MGon 12-09 Anion gap [Moles/Vol] 10 mmol/L Normal 9-17 [place] Comment on above: Performed By: #### H H, BMPX #### [facility] [address] [place] [address] [employer]: Luis Solis MD Calcium [Mass/Vol] 8.6 mg/dL Normal 8.6-10.4 [place] Comment on above: Performed By: #### H H, BMPX #### [facility] [address] [place] [address] [employer]: Luis Solis MD Chloride [Moles/Vol] 106 mmol/L Normal 98-107 [place] Comment on above: Performed By: #### H H, BMPX #### [facility] [address] [place] [address] [employer]: Luis Solis MD CO2 [Moles/Vol] 21 mmol/L Normal 20-31 [place] Comment on above: Performed By: #### H H, BMPX #### [facility] [address] [place] [address] [employer]: Luis Solis MD Creatinine [Mass/Vol] 1.33 mg/dL High 0.50-0.90 [place] Comment on above: Performed By: #### H H, BMPX #### [facility] [employer] [address] [place] [address] [employer] Grader: Luis Solis MD GFR/1.73 sq M.predicted among non-blacks MDRD (S/P/Bld) [Vol rate/Area] 41 mL/min/{1.73_m2} Low >60 [place] Comment on above: Result Comment: Effective Aug [...] Performed By: #### H H, BMPX #### [employer] [address] [place] [address] Paper T[employer] Grader: Luis Solis MD Glucose [Mass/Vol] 102 mg/dL High 70-99 [place] Comment on above: Performed By: #### H H, BMPX #### [employer] [address] [place] [address] [employer] Grader: Luis Solis MD Potassium [Moles/Vol] 4.1 mmol/L Normal 3.7-5.3 [place] Comment on above: Performed By: #### H H, BMPX #### [employer] [address] [place] [address] Paper T[employer] Grader: Luis Solis MD Sodium [Moles/Vol] 137 mmol/L Normal 135-144 [place] Comment on above: Performed By: #### H H, BMPX #### [employer] [address] [place] [address] Paper [employer] Grader: Luis Solis MD Urea nitrogen [Mass/Vol] 19 mg/dL Normal 8-23 [place] Comment on above: Performed By: #### H H, BMPX #### [employer] [address] [place] [address] [employer]ader: Luis Solis MD Basic Metabolic Panel w/ [...] [Mass/Vol] 19 mg/dL 8 - 23 mg/dL [facility] Hemoglobin and Hematocriton 12-09-2022 Hematocrit (Bld) [Volume fraction] 25.6 % Low 36.3 - 47.1 % [facility] Hemoglobin (Bld) [Mass/Vol] 8.0 g/dL Low 11.9 - 15.1 g/dL [facility] Interpretation and review of laboratory results Abnormal [facility] Hematocrit (Bld) [Volume fraction] 23.5 % Low 36.3 - 47.1 % [facility] Hemoglobin (Bld) [Mass/Vol] 7.1 g/dL Low 11.9 - 15.1 g/dL [facility] Interpretation and review of laboratory results Abnormal [facility] Hgb/Hcton 12-09-2022 Hematocrit (Bld) [Volume fraction] 25.6 % Low 36.3-47.1 [place] Comment on above: Performed By: #### H H, BMPX #### [facility] [address] [place], [place] [id number] [employer]ader: Luis Solis MD Hemoglobin (Bld) [Mass/Vol] 8.0 g/dL Low 11.9-15.1 [place] Comment on above: Performed By: #### H H, BMPX #### [facility] [address] [place] [address] [phone] [employer]ader: Luis Solis MD Hematocrit (Bld) [Volume fraction] 23.5 % Low 36.3-47.1 [place] Comment on above: Performed By: #### H H, BMPX #### [facility] [address] [place] [address] [id number] [employer]: Luis Solis MD Hemoglobin (Bld) [Mass/Vol] 7.1 g/dL Low 11.9-15.1 [place] Comment on above: Performed By: #### H H, BMPX #### [facility] [address] [place] [address] [phone] Paper [employer] Grader: Luis Solis MD POC Glucose Fingerstickon Glucose [Mass/Vol] 143 mg/dL High 65 - 105 mg/dL [facility] [employer] Interpretation and review of laboratory results Abnormal [facility] Glucose [Mass/Vol] 96 mg/dL 65 - 105 mg/dL [facility] Glucose [Mass/Vol] 114 mg/dL High 65 - 105 mg/dL [facility] Interpretation and review of laboratory results Abnormal [facility] Glucose [Mass/Vol] 111 mg/dL High 65 - 105 mg/dL [facility] Interpretation and review of laboratory results Abnormal [facility] Type + Screenon 12-09-2022 Type + Screen Sample Expiration 12/10/2022,2359 Arm Band Number [id number] ABO/Rh(D) O NEGATIVE Antibody Screen NEGATIVE Unit Number [id number] Blood Component Type Leukocyte Reduced Red Cell Unit Division 00 Status of Unit TRANSFUSED Transfusion Status OK TO TRANSFUSE Crossmatch Result COMPATIBLE Unit Number [id number] Blood Component Type Leukocyte Reduced Red Cell Unit Division 00 Status of Unit TRANSFUSED Transfusion Status OK TO TRANSFUSE Crossmatch Result COMPATIBLE Unit Number [id number] Blood Component Type Leukocyte Reduced Red Cell Unit Division 00 Status of Unit TRANSFUSED Transfusion Status OK TO TRANSFUSE Crossmatch Result COMPATIBLE Normal [place] Comment on above: Performed By: #### R CHITO BMPX #### [facility] [employer] [address] [place] [address] [phone] [employer]ader: Luis Solis MD Basic Metab w/rfx MGon 12-08 Anion gap [Moles/Vol] 9 mmol/L Normal 9-17 [place] Comment on above: Performed By: #### Jeff DALE, BMPX #### [facility] [address] [place] [address] [employer]: Luis Solis MD Calcium [Mass/Vol] 8.6 mg/dL Normal 8.6-10.4 [place] Comment on above: Performed By: #### R CHITO, BMPX #### [employer] [address] [place] [address] [employer]: Luis Solis MD Chloride [Moles/Vol] 106 mmol/L Normal 98-107 [place] Comment on above: Performed By: #### R CHITO, BMPX #### [employer] [address] [place] [address] [phone] [employer]: Luis Solis MD CO2 [Moles/Vol] 24 mmol/L Normal 20-31 [place] Comment on above: Performed By: #### R CHITO, BMPX #### [facility] [employer] [address] [place] [address] [employer]: Luis Solis MD Creatinine [Mass/Vol] 1.33 mg/dL High 0.50-0.90 [place] Comment on above: Performed By: #### R ZAINABEC, BMPX #### [address] [address] [employer]: Luis Solis MD GFR/1.73 sq M.predicted among non-blacks MDRD (S/P/Bld) [Vol rate/Area] 41 mL/min/{1.73_m2} Low >60 [place] Comment on above: Result Comment: Effective Aug [...] renal tubular secretion. Performed By: #### R CHITO, BMPX #### [facility] [employer] [address] [place] [address] [employer]: Luis Solis MD Glucose [Mass/Vol] 160 mg/dL High 70-99 [place] Comment on above: Performed By: #### R CHITO, BMPX #### [facility] [employer] [address] [place] [address] [employer]: Luis Solis MD Potassium [Moles/Vol] 4.4 mmol/L Normal 3.7-5.3 [place] Comment on above: Performed By: #### R CHITO, BMPX #### [facility] [employer] [address] [place] [address] [employer]: Luis Solis MD Sodium [Moles/Vol] 139 mmol/L Normal 135-144 [place] Comment on above: Performed By: #### R CHITO BMPX #### [facility] [address] [place], [place] [address] [employer]: Luis Solis MD Urea nitrogen [Mass/Vol] 21 mg/dL Normal 8-23 [place] Comment on above: Performed By: #### R CHITO BMPX #### [facility] [address] [place], [place] [phone] [employer]: Luis Solis MD Basic Metabolic Panelon 11-16 Anion gap [Moles/Vol] 7 mmol/L Low 9 - 17 mmol/L [employer] Calcium [Mass/Vol] 8.5 mg/dL Low 8.6 - 10. 4 mg/dL [employer] Chloride [Moles/Vol] 110 mmol/L High 98 - 107 mmol/L [employer] CO2 [Moles/Vol] 25 mmol/L 20 - 31 mmol/L [employer] Creatinine [Mass/Vol] 1.43 mg/dL High 0.50 - 0.90 mg/dL [employer] GFR/1.73 sq M.predicted MDRD (S/P/Bld) [Vol rate/Area] 38 mL/min/{1.73_m2} Low - PINF [employer] Comment on above: Effective Aug 17, 2022 [...] 124 mg/dL High 70 - 99 mg/dL [employer] Interpretation and review of laboratory results Abnormal [employer] Potassium [Moles/Vol] 4.7 mmol/L 3.7 - 5.3 mmol/L [employer] [employer] Sodium [Moles/Vol] 142 mmol/L 135 - 144 mmol/L [facility] Urea nitrogen (BldV) [Mass/Vol] 23 mg/dL 8 - 23 mg/dL [facility] Basic Metabolic Panel w/ Ref pierre to [...] [Mass/Vol] 21 mg/dL 8 - 23 mg/dL [facility] Basic Metabolic Profon 12-08 Anion gap [Moles/Vol] 7 mmol/L Low 9-17 [place] Comment on above: Performed By: #### B MP, CBC #### [facility] [address] [place] [address] Paper Tube Grader: Luis Solis MD Calcium [Mass/Vol] 8.5 mg/dL Low 8.6-10.4 [place] Comment on above: Performed By: #### B MP, CBC #### [facility] [address] [place] [address]16 [employer] T[employer] Grader: Luis Solis MD Chloride [Moles/Vol] 110 mmol/L High 98-107 [place] Comment on above: Performed By: #### B MP, CBC #### [facility] [address] [place] [address] 00083 [employer] Grader: Luis Solis MD CO2 [Moles/Vol] 25 mmol/L Normal 20-31 [place] Comment on above: Performed By: #### B MP, CBC #### [facility] [address] [place] [address]18 Paper T[employer] Grader: Luis Solis MD Creatinine [Mass/Vol] 1.43 mg/dL High 0.50-0.90 [place] Comment on above: Performed By: #### B MP, CBC #### [address] [address] Paper T[employer] Grader: Luis Solis MD GFR/1.73 sq M.predicted among non-blacks MDRD (S/P/Bld) [Vol rate/Area] 38 mL/min/{1.73_m2} Low >60 [place] Comment on above: Result Comment: Effective Aug [...] #### B MP, CBC #### [facility] [address] [place] [address] 57358 Paper [employer] Grader: Luis Solis MD Glucose [Mass/Vol] 124 mg/dL High 70-99 [place] Comment on above: Performed By: #### B MP, CBC #### [facility] [address] [place] [address] 31829 Paper T[employer] Grader: Luis Solis MD Potassium [Moles/Vol] 4.7 mmol/L Normal 3.7-5.3 [place] Comment on above: Performed By: #### B MP, CBC #### [facility] [address] [place] [address]5615 Paper Tube Grader: Luis Solis MD Sodium [Moles/Vol] 142 mmol/L Normal 135-144 [place] Comment on above: Performed By: #### B MP, CBC #### [facility] [employer] [address] [place] [address] 37793 Paper Tube Grader: Luis Solis MD Urea nitrogen [Mass/Vol] 23 mg/dL Normal 8-23 [place] Comment on above: Performed By: #### B MP, CBC #### [facility] [employer] [address] [place] [address] 8[address]23 Paper Tube Grader: Luis Solis MD [facility] 12-08-2022 Erythrocyte distribution width (RBC) [Ratio] 17.8 % High 11.8-14.4 [place] Comment on above: Performed By: #### B MP, CBC #### [facility] [employer] [address] [place] [address] 77399 Paper T[employer] Grader: Luis Solis MD Hematocrit (Bld) [Volume fraction] 22.0 % Low 36.3-47.1 [place] Comment on above: Performed By: #### B MP, CBC #### [facility] [address] [place] [address] 97379 Paper Tube Grader: Luis Solis MD Hemoglobin (Bld) [Mass/Vol] 6.6 g/dL Critically low 11.9-15.1 [place] Comment on above: Performed By: #### B MP, CBC #### [address] [address] Paper Tube Grader: Luis Solis MD MCH (RBC) [Entitic mass] 27.5 pg Normal 25.2-33.5 [place] Comment on above: Performed By: #### B MP, CBC #### [address] [address] Paper Tube Grader: Luis Solis MD MCHC (RBC) [Mass/Vol] 30.0 g/dL Normal 28.4-34.8 [place] Comment on above: Performed By: #### B MP, CBC #### [address] [address] Paper Tube Grader: Luis Solis MD MCV (RBC) [Entitic vol] 91.7 fL Normal 82.6-102.9 [place] Comment on above: Performed By: #### B MP, CBC #### [address] [address] Paper T[employer] Grader: Luis Solis MD NRBC Automated 0.0 per 100 WBC Normal 0.0 [place] Comment on above: Performed By: #### B MP, CBC #### [address] [address] Paper Tube Grader: Luis Solis MD Platelet mean volume (Bld) [Entitic vol] 10.3 fL Normal 8.1-13.5 [place] Comment on above: Performed By: #### B MP, CBC #### [address] [id number] Paper T[employer] Grader: Luis Solis MD Platelets (Bld) [#/Vol] 250 10*3/uL Normal 138-453 [place] Comment on above: Performed By: #### B MP, CBC #### [facility] [address] [place], [place] [phone] Paper T[employer] Grader: Luis Solis MD RBC (Bld) [#/Vol] 2.40 10*6/uL Low 3.95-5.11 [place] Comment on above: Performed By: #### B MP, CBC #### [facility] [address] [place], [place] [phone] Paper Tube Grader: Luis Solis MD WBC (Bld) [#/Vol] 9.2 10*3/uL Normal 3.5-11.3 [place] Comment on above: Performed By: #### B MP, CBC #### [employer] [address] [place], [place] [id number] Paper Tube Grader: Luis Solis MD Hematocrit (Bld) [Volume fraction] [...] NRBC Automated 0.0 0.0 per 100 WBC [facility] Platelet distribution width (Bld) [Ratio] 17.8 % High 11.8 - 14.4 % [facility] Platelet mean volume (Bld) [Entitic vol] 10.3 fL 8.1 - 13.5 fL [facility] Platelets (Bld) [#/Vol] 250 10*3/uL [facility] RBC (Bld) [#/Vol] 2.40 10*6/uL Low 3.95 - 5.1 1 m/uL [facility] WBC (Bld) [#/Vol] 9.2 10*3/uL [facility] Hemoglobin and Hematocriton 12-08-2022 Hematocrit (Bld) [Volume fraction] 24.4 % Low 36.3 - 47.1 % [facility] Hemoglobin (Bld) [Mass/Vol] 7.4 g/dL Low 11.9 - 15.1 g/dL [facility] Interpretation and review of laboratory results Abnormal [facility] Hematocrit (Bld) [Volume fraction] 24.6 % Low 36.3 - 47.1 % [facility] Hemoglobin (Bld) [Mass/Vol] 7.7 g/dL Low 11.9 - 15.1 g/dL [facility] Interpretation and review of laboratory results Abnormal [facility] Hematocrit (Bld) [Volume fraction] 22.9 % Low 36.3 - 47.1 % [facility] Hemoglobin (Bld) [Mass/Vol] 7.6 g/dL Low 11.9 - 15.1 g/dL [facility] Interpretation and review of laboratory results Abnormal [facility] Hematocrit (Bld) [Volume fraction] 21.9 % Low 36.3 - 47.1 % [facility] Hemoglobin (Bld) [Mass/Vol] 6.5 g/dL Critically low 11.9 - 15.1 g/dL [facility] Interpretation and review of laboratory results Abnormal [facility] Hgb/Hcton 12-08-2022 Hematocrit (Bld) [Volume fraction] 24.4 % Low 36.3-47.1 [place] Comment on above: Performed By: #### R WILSON DALEX #### [facility] [employer] [address] [place] [address]608 Paper Tube Grader: Luis Solis MD Hemoglobin (Bld) [Mass/Vol] 7.4 g/dL Low 11.9-15.1 [place] Comment on above: Performed By: #### R CHITO, BMPX #### [facility] [address] [place] [address] Paper Tube Grader: Luis Solis MD Hematocrit (Bld) [Volume fraction] 24.6 % Low 36.3-47.1 [place] Comment on above: Performed By: #### R EJEC, BMPX #### [facility] [address] [place] [address] 08249 Paper Tube Grader: Luis Solis MD Hemoglobin (Bld) [Mass/Vol] 7.7 g/dL Low 11.9-15.1 [place] Comment on above: Performed By: #### R CHITO, BMPX #### [facility] [address] [place] [address]98 Paper Tube Grader: Luis Solis MD Hematocrit (Bld) [Volume fraction] 22.9 % Low 36.3-47.1 [place] Comment on above: Performed By: #### R CHITO, BMPX #### [facility] [address] [place] [address] Paper Tube Grader: Luis Solis MD Hemoglobin (Bld) [Mass/Vol] 7.6 g/dL Low 11.9-15.1 [place] Comment on above: Performed By: #### R CHITO, BMPX #### [facility] [address] [place] [address] Paper Tube Grader: Luis Solis MD Hematocrit (Bld) [Volume fraction] 21.9 % Low 36.3-47.1 [place] Comment on above: Performed By: #### H H #### [facility] [address] [place] [address] Paper Tube Grader: Luis Solis MD Hemoglobin (Bld) [Mass/Vol] 6.5 g/dL Critically low 11.9-15.1 [place] Comment on above: Performed By: #### H H #### [employer] [facility] [place], [place] [phone] Paper Tube Grader: Luis Solis MD Hematocrit (Bld) [Volume fraction] 23.7 % Low 36.3-47.1 [place] Comment on above: Performed By: #### R EJEC, BMPX #### [employer] [address] [place], [place] [phone] Paper Tube Grader: Luis Solis MD Hemoglobin (Bld) [Mass/Vol] 7.6 g/dL Low 11.9-15.1 [place] Comment on above: Performed By: #### R EJEC, BMPX #### [facility] [address] [place] [address] [phone] Paper Tube Grader: Luis Solis MD POC Glucose Fingerstickon Glucose [Mass/Vol] 129 mg/dL High 65 - 105 mg/dL [facility] Interpretation and review of laboratory results Abnormal [facility] Glucose [Mass/Vol] 138 mg/dL High 65 - 105 mg/dL [facility] Interpretation and review of laboratory results Abnormal [facility] Glucose [Mass/Vol] 164 mg/dL High 65 - 105 mg/dL [facility] Interpretation and review of laboratory results Abnormal [facility] SPECIMEN REJECTIONon 023 Ordered Test HH [facility] Reason for Rejection Unable to perform testing: Specimen clotted. [facility] Specimen source Nom (Unsp spec) .BLOOD [facility] Specimen Rejectionon 023 Reason for rejection Unable to perform testing: Specimen clotted. Normal [place] Comment on above: Performed By: #### R EJEC, BMPX #### [employer] [address] [place], [place] [phone] Paper Tube Grader: Luis Solis MD Source of sample .BLOOD Normal [facility] Comment on above: Performed By: #### R CHITO, BMPX #### [facility] [address] [place], [place] [id number] Paper Tube Grader: Luis Solis MD Test ordered HH Normal [place] Comment on above: Performed By: #### R ZAINABEC, BMPX #### [facility] [address] [place], [place] [phone] Paper Tube Grader: Luis Solis MD Activated clotting timeon Activated Clotting Time 262 High [facility] [employer] Interpretation and review of laboratory results Abnormal [facility] CHLORIDE (POC)on 12-07-2022 Chloride [Moles/Vol] 107 mmol/L 98 - 107 mmol/L [facility] Catheterization and angiogra phy procedure details panelon 12-07-2022 [facility]ONLobster Work Phone: Creatinine W/GFR Point of Ca reon 12-07-2022 Creatinine [Mass/Vol] 1.35 mg/dL High 0.51 - 1.19 mg/dL [facility] eGFR, POC 41 mL/min/1.73m 2 [facility] Comment on above: Effective Aug 17, [...] 23.7 % Low 36.3 - 47.1 % [facility] Hemoglobin (Bld) [Mass/Vol] 7.6 g/dL Low 11.9 - 15.1 g/dL [facility]ITALSunFunderCH[facility] Interpretation and review of laboratory results Abnormal [facility] Hematocrit (Bld) [Volume fraction] 24.9 % Low 36.3 - 47.1 % [facility] Hemoglobin (Bld) [Mass/Vol] 7.2 g/dL Low 11.9 - 15.1 g/dL [facility] Interpretation and review of laboratory results Abnormal [facility] Hemoglobin and hematocrit, b loodon 12-07-2022 Hematocrit (Bld) [Volume fraction] 20 % Low 36 - 46 % [facility] Hemoglobin (Bld) [Mass/Vol] 6.9 g/dL Critically low 12.0 - 16.0 g/dL [facility] Interpretation and review of laboratory results Abnormal [facility] Hematocrit (Bld) [Volume fraction] 30 % Low 36 - 46 % [facility] Hemoglobin (Bld) [Mass/Vol] 10.1 g/dL Low 12.0 - 16.0 g/dL [facility] Hgb/Hcton 12-07-2022 Hematocrit (Bld) [Volume fraction] 24.9 % Low 36.3-47.1 [place] Comment on above: Performed By: #### Jeff DALE, BMPX #### [employer] [address] [place], [place] [id number] Paper Tube Grader: Luis Solis MD Hemoglobin (Bld) [Mass/Vol] 7.2 g/dL Low 11.9-15.1 [place] Comment on above: Performed By: #### R CHITO, BMPX #### [employer] [address] [place], [place] [id number] Paper Tube Grader: Luis Solis MD No Panel Informationon 12-07 Interpretation and review of laboratory results Abnormal [facility] POC Glucose Fingerstickon Glucose [Mass/Vol] 197 mg/dL High 65 - 105 mg/dL [facility] Interpretation and review of laboratory results Abnormal [facility] Glucose [Mass/Vol] 101 mg/dL 65 - 105 mg/dL [facility] POCT Glucoseon 12-07-2022 Glucose [Mass/Vol] 83 mg/dL [...] RIGHTon 12-07-2022 Darnell Monique MD - 12/07/2022 [facility] Vascular Lower Extremities Arterial Duplex Procedure Patient Name CHRISTA Date of Study 12/07/2022 [facility] Date of 1945 Gender Female Age 77 year(s) Race Room Number 0501 Height: 65 inch, 165.1 cm Corporate ID # [id number] Weight: 208 pounds, 94.3 kg Patient BSA: 2.01 m^2 BMI: 34.61 kg/m^2 MR # [id number] [employer] Agent Whit Gan RVT Interpreting Physician Darnell Monique [...] ! ! +---------++-----+----- +------+----+------++-- -+-----+------+----+--- ------ + [employer] Phone: Radiology Study observation (narrative) [employer] Phone: VL DUP LOWER EXTREMITY ARTER IES RIGHTOrdered By: Darnell Burk on 12-07-2022 [employer] Phone: CHLORIDE (POC)on 11-24-2022 Chloride [Moles/Vol] 105 [...] Interpretation and review of laboratory results Abnormal [facility] POCT Glucoseon 11-24-2022 Glucose [Mass/Vol] 135 mg/dL High 74 - 100 mg/dL [facility] POCT urea (BUN)on 11-24-2022 POC BUN Result not available. 8 - 26 mg/dL B [facility] POTASSIUM (POC)on 11-24-2022 Potassium [Moles/Vol] 5.3 mmol/L High 3.5 - 4.5 mmol/L [facility] Platelet Counton 11-24-2022 Platelets (Bld) [#/Vol] 314 10*3/uL Normal 138-453 [place] Comment on above: Performed By: #### P LT #### [facility] [address] [place] [address] Paper Tube Grader: Luis Solis MD Platelets (Bld) [#/Vol] 314 10*3/uL [facility] SODIUM (POC)on 11-24-2022 Sodium [Moles/Vol] 142 mmol/L 138 - 146 mmol/L [facility] Cult,Bloodon 10-03-2022 Cult,Blood Specimen Description .BLOOD Special Requests L AC 10ML Culture NO GROWTH 5 DAYS Report Status FINAL 10/03/2022 Normal [place] Comment on above: Performed By: #### B C #### [facility] [employer] [address] [place] [address]692 Paper Tube Grader: Luis Solis MD Cult,Blood Specimen Description .BLOOD Special Requests R AC 10ML Culture NO GROWTH 5 DAYS Report Status FINAL 10/03/2022 Normal [place] Comment on above: Performed By: #### H H, BMPX #### [address] [address] [employer] Tube Grader: Luis Solis MD Basic Metab w/rfx MGon 09-30 Anion gap [Moles/Vol] 9 mmol/L Normal 9-17 [place] Comment on above: Performed By: #### H H, BMPX #### [facility] [employer] [address] [place] [address] 7[address] Paper Tube Grader: Luis Solis MD Calcium [Mass/Vol] 8.8 mg/dL Normal 8.6-10.4 [place] Comment on above: Performed By: #### H H, BMPX #### [facility] [employer] [address] [place] [address] 01279 Paper Tube Grader: Luis Solis MD Chloride [Moles/Vol] 102 mmol/L Normal 98-107 [place] Comment on above: Performed By: #### H H, BMPX #### [facility] [employer] [address] [place] [address] 28614 Paper Tube Grader: Luis Solis MD CO2 [Moles/Vol] 28 mmol/L Normal 20-31 [place] Comment on above: Performed By: #### H H, BMPX #### [facility] [employer] [address] [place] [address] 72093 Paper Tube Grader: Luis Solis MD Creatinine [Mass/Vol] 1.28 mg/dL High 0.50-0.90 [place] Comment on above: Performed By: #### H H, BMPX #### [address] [address] [employer] T[employer] Grader: Luis Solis MD GFR/1.73 sq M.predicted among non-blacks MDRD (S/P/Bld) [Vol rate/Area] 43 mL/min/{1.73_m2} Low >60 [place] Comment on above: Result Comment: Effective Aug [...] By: #### H H, BMPX #### [address] [address] [employer] T[employer] Grader: Luis Solis MD Glucose [Mass/Vol] 141 mg/dL High 70-99 [place] Comment on above: Performed By: #### H H, BMPX #### [facility] [employer] [address] [place] [address] 880[address] Paper Tube Grader: Luis Solis MD Potassium [Moles/Vol] 4.0 mmol/L Normal 3.7-5.3 [place] Comment on above: Performed By: #### H H, BMPX #### [facility] [employer] [address] [place] [address] 81428 Paper Tube Grader: Luis Solis MD Sodium [Moles/Vol] 139 mmol/L Normal 135-144 [place] Comment on above: Performed By: #### H H, BMPX #### [facility] [place], [place] 1759508 [employer] Grader: Luis Solis MD Urea nitrogen [Mass/Vol] 18 mg/dL Normal 8-23 [place] Comment on above: Performed By: #### H H, BMPX #### [facility] [address] [place] [address] [phone] Paper Tube Grader: Luis Solis MD Cult,Urineon 09-30-2022 Cult,Urine Specimen Description .URINE,STRAIGHT CATHETER Culture ESCHERICHIA COLI >[id number] CFU/ML AEROCOCCUS URINAE 50 to 100,000 CFU/ML [...] Trimethoprim/Sulfa <=20 SUSCEPTIBLE Piperacillin/Tazobactam <=4 SUSCEPTIBLE Susceptible [place] Comment on above: Performed By: #### H H, BMPX #### [facility] [place], [place] [phone] [employer] Grader: Luis Solis MD APTTon 09-29-2022 aPTT Coag (Bld) [Time] 30.4 s Normal 20.5-30.5 [place] Comment on above: Result Comment: IV Heparin Therapy Range: 48.6-77.8 Performed By: #### H H, BMPX #### [employer] [facility] [place], [place] [id number] Paper T[employer] Grader: Luis Solis MD Procalcitoninon 09-29-2022 Procalcitonin 0.23 ng/mL High <0.09 [place] Comment on above: Result Comment: Suspected Sepsis: [...] entered into the Change in Procalcitonin Calculator ([email or web address]) to determine the patient's Mortality Risk Prognosis In healthy neonates, plasma Procalcitonin (PCT) concentrations increase gradually after , reaching peak values at about 24 hours of age then decrease to normal values below 0.5 ng/mL by 48-72 hours of age. Performed By: #### R EJJESE, BMPX #### [employer] [address] [place] [address] [id number] Paper Tube Grader: Luis Solis MD APTTon 09-28-2022 aPTT Coag (Bld) [Time] 110.7 s Critically high 20.5-30.5 [place] Comment on above: Result Comment: IV Heparin Therapy Range: 48.6-77.8 Performed By: #### P TT #### [facility] [address] [place] [address] [phone] Paper Tube Grader: Luis Solis MD aPTT Coag (Bld) [Time] 24.1 s Normal 20.5-30.5 [place] Comment on above: Result Comment: IV Heparin Therapy Range: 48.6-77.8 Performed By: #### H H, BMPX #### [facility] [employer] [address] [place] [address] 35377 Paper Tube Grader: Luis Solis MD aPTT Coag (Bld) [Time] 22.6 s Normal 20.5-30.5 [place] Comment on above: Result Comment: IV Heparin Therapy Range: 48.6-77.8 Performed By: #### H H, BMPX #### [facility] [address] [place] [address] 23051 Paper Tube Grader: Luis Solis MD Basic Metab w/rfx MGon 09-28 Anion gap [Moles/Vol] 10 mmol/L Normal 9-17 [place] Comment on above: Performed By: #### R CHITO, BMPX #### [address] [address] [employer] Grader: Luis Solis MD Calcium [Mass/Vol] 7.6 mg/dL Low 8.6-10.4 [place] Comment on above: Performed By: #### R CHITO, BMPX #### [facility] [employer] [address] [place] [address]2002 Paper [employer] Grader: Luis Solis MD Chloride [Moles/Vol] 107 mmol/L Normal 98-107 [place] Comment on above: Performed By: #### R EJEC, BMPX #### [facility] [address] [place] [address] 33896 Paper Tube Grader: Luis Solis MD CO2 [Moles/Vol] 23 mmol/L Normal 20-31 [place] Comment on above: Performed By: #### R EJEC, BMPX #### [facility] [employer] [address] [place] [address] 21390 Paper T[employer] Grader: Luis Solis MD Creatinine [Mass/Vol] 1.33 mg/dL High 0.50-0.90 [place] Comment on above: Performed By: #### R CHITO, BMPX #### [address] [address] [employer]ader: Luis Solis MD GFR/1.73 sq M.predicted among non-blacks MDRD (S/P/Bld) [Vol rate/Area] 41 mL/min/{1.73_m2} Low >60 [place] Comment on above: Result Comment: Effective Aug [...] Performed By: #### R CHITO BMPX #### [facility] [employer] [address] [place] [address]248 [employer] Grader: Luis Solis MD Glucose [Mass/Vol] 243 mg/dL High 70-99 [place] Comment on above: Performed By: #### R CHITO BMPX #### [facility] [employer] [address] [place] [address] 62703 [employer] Grader: Luis Solis MD Potassium [Moles/Vol] 4.5 mmol/L Normal 3.7-5.3 [place] Comment on above: Performed By: #### R CHITO, BMPX #### [facility] [address] [place] [address] 020[address] [employer] Grader: Luis Solis MD Sodium [Moles/Vol] 140 mmol/L Normal 135-144 [place] Comment on above: Performed By: #### R CHITO, BMPX #### [facility] [employer] [address] [place] [address] 937[address] [employer] Grader: Luis Solis MD Urea nitrogen [Mass/Vol] 21 mg/dL Normal 8-23 [place] Comment on above: Performed By: #### R CHITO, BMPX #### [address] [address] [employer]: Luis Solis MD Brain Natri. Peptideon 09-28 Natriuretic peptide B (Bld) [Mass/Vol] 5275 pg/mL High <300 [place] Comment on above: Result Comment: An age-independent cutoff point of 300 pg/ml has a 98% negative predictive value excluding acute heart failure. Performed By: #### H H, BMPX #### [address] [address] [employer]: Luis Solis MD C-Reactive Proteinon 022 CRP [Mass/Vol] 48.0 mg/L High 0.0-5.0 [place] Comment on above: Performed By: #### R CHITO, BMPX #### [address] [address] [employer]: Luis Solis MD CBC with Diffon 09-28-2022 Abs. Basophil 0.06 k/uL Normal 0.00-0.20 [place] Comment on above: Performed By: #### H H, BMPX #### [facility] [employer] [address] [place] [address] Paper [employer] Grader: Luis Solis MD Abs.Imm.Granulocyte 0.16 k/uL Normal 0.00-0.30 [place] Comment on above: Performed By: #### H H, BMPX #### [facility] [employer] [address] [place] [address] [employer] Grader: Luis Solis MD Abs.Neutrophil (Seg) 10.78 k/uL High 1.50-8.10 [place] Comment on above: Performed By: #### H H, BMPX #### [facility] [address] [place] [address]66 [employer]: Luis Solis MD Basophils/100 WBC (Bld) 1 % Normal 0-2 [place] Comment on above: Performed By: #### H H, BMPX #### [address] [address] [employer]: Luis Solis MD Eosinophils (Bld) [#/Vol] 0.20 10*3/uL Normal 0.00-0.44 [place] Comment on above: Performed By: #### H H, BMPX #### [facility] [employer] [address] [place] [address] [employer]ader: Luis Solis MD Eosinophils/100 WBC (Bld) 2 % Normal 1-4 [place] Comment on above: Performed By: #### H H, BMPX #### [facility] [employer] [address] [place] [address]307 [employer] Grader: Luis Solis MD Erythrocyte distribution width (RBC) [Ratio] 16.7 % High 11.8-14.4 [place] Comment on above: Performed By: #### H H, BMPX #### [facility] [employer] [address] [place] [address]36 [employer] Grader: Luis Solis MD Hematocrit (Bld) [Volume fraction] 27.2 % Low 36.3-47.1 [place] Comment on above: Performed By: #### H H, BMPX #### [facility] [employer] [address] [place] [address] [employer]ader: Luis Solis MD Hemoglobin (Bld) [Mass/Vol] 8.1 g/dL Low 11.9-15.1 [place] Comment on above: Performed By: #### H H, BMPX #### [facility] [address] [place] [address] [employer] Grader: Luis Solis MD Immature granulocytes/100 WBC (Bld) 1 % High 0 [place] Comment on above: Performed By: #### H H, BMPX #### [address] [address] [employer] Grader: Luis Solis MD Lymphocytes (Bld) [#/Vol] 0.74 10*3/uL Low 1.10-3.70 [place] Comment on above: Performed By: #### H H, BMPX #### [address] [address] Paper Tube Grader: Luis Solis MD Lymphocytes/100 WBC (Bld) 6 % Low 24-43 [place] Comment on above: Performed By: #### H H, BMPX #### [place] [address] Paper Tube Grader: Luis Solis MD MCH (RBC) [Entitic mass] 26.9 pg Normal 25.2-33.5 [place] Comment on above: Performed By: #### H H, BMPX #### [place] [address] Paper Tube Grader: Luis Solis MD MCHC (RBC) [Mass/Vol] 29.8 g/dL Normal 28.4-34.8 [place] Comment on above: Performed By: #### H H, BMPX #### [place] [address] Paper Tube Grader: Luis Solis MD MCV (RBC) [Entitic vol] 90.4 fL Normal 82.6-102.9 [place] Comment on above: Performed By: #### H H, BMPX #### [facility] [employer] [address] [place] [address] Paper Tube Grader: Luis Solis MD Monocytes (Bld) [#/Vol] 0.78 10*3/uL Normal 0.10-1.20 [place] Comment on above: Performed By: #### H H, BMPX #### [address] [address] Paper Tube Grader: Luis Solis MD Monocytes/100 WBC (Bld) 6 % Normal 3-12 [place] Comment on above: Performed By: #### H H, BMPX #### [place] [address] [employer] Tube Grader: Luis Solis MD Neutrophil (Seg) 84 % High 36-65 [facility] Comment on above: Performed By: #### H H, BMPX #### [address] [address] Paper Tube Grader: Luis Solis MD NRBC Automated 0.2 per 100 WBC High 0.0 [place] Comment on above: Performed By: #### H H, BMPX #### [place] [address] [employer] T[employer] Grader: Luis Solis MD Platelet mean volume (Bld) [Entitic vol] 9.9 fL Normal 8.1-13.5 [place] Comment on above: Performed By: #### H H, BMPX #### [place] [address] [employer] T[employer] Grader: Luis Solis MD Platelets (Bld) [#/Vol] 391 10*3/uL Normal 138-453 [place] Comment on above: Performed By: #### H H, BMPX #### [address] [address] Paper Tube Grader: Luis Solis MD RBC (Bld) [#/Vol] 3.01 10*6/uL Low 3.95-5.11 [place] Comment on above: Performed By: #### H H, BMPX #### [employer] [address] [place] [address] Paper Tube Grader: Luis Solis MD RBC morphology finding Nom (Bld) ANISOCYTOSIS PRESENT Normal [place] Comment on above: Performed By: #### H H, BMPX #### [facility] [address] [place] [address] Paper Tube Grader: Luis Solis MD WBC (Bld) [#/Vol] 12.7 10*3/uL High 3.5-11.3 [place] Comment on above: Performed By: #### H H, BMPX #### [facility] [address] [place] [address] Paper Tube Grader: Luis Solis MD CT CHEST PULMONARY EMBOLISM [...] COMPARISON: None HISTORY: ORDERING SYSTEM PROVIDED HISTORY: tachjeffery ayala TECHNOLOGIST PROVIDED HISTORY: Tachjeffery ayala Decision Support Exception - unselect if not [...] Matthew Chong MD 09/28/22 Final result Normal [place] Comp Metabolic Profon 2021 Albumin [Mass/Vol] 3.5 g/dL Normal 3.5-5.2 [place] Comment on above: Performed By: #### H H, BMPX #### [employer] [address] [place], [place] [id number] Paper Tube Grader: Luis Solis MD Albumin/Glob Ratio 0.9 Low 1.0-2.5 [place] Comment on above: Performed By: #### H H, BMPX #### [employer] [address] [place], [place] [id number] Paper Tube Grader: Luis Solis MD Alkaline Phos 104 U/L Normal 35-104 [place] Comment on above: Performed By: #### H H, BMPX #### [facility] [address] [place] [address] Paper Tube Grader: Luis Solis MD ALT [Catalytic activity/Vol] 7 U/L Normal 5-33 [place] Comment on above: Performed By: #### H H, BMPX #### [address] [address] Paper Tube Grader: Luis Solis MD Anion gap [Moles/Vol] 13 mmol/L Normal 9-17 [place] Comment on above: Performed By: #### H H, BMPX #### [facility] [employer] [address] [place] [address] Paper Tube Grader: Luis Solis MD AST [Catalytic activity/Vol] 15 U/L Normal <32 [place] Comment on above: Performed By: #### H H, BMPX #### [facility] [employer] [address] [place] [address] Paper Tube Grader: Luis Solis MD Bilirubin [Mass/Vol] 0.5 mg/dL Normal 0.3-1.2 [place] Comment on above: Performed By: #### H H, BMPX #### [address] [address] Paper Tube Grader: Luis Solis MD Calcium [Mass/Vol] 8.5 mg/dL Low 8.6-10.4 [place] Comment on above: Performed By: #### H H, BMPX #### [facility] [employer] [address] [place] [address] Paper Tube Grader: Luis Solis MD Chloride [Moles/Vol] 102 mmol/L Normal 98-107 [place] Comment on above: Performed By: #### H H, BMPX #### [facility] [employer] [address] [place] [address] Paper Tube Grader: Luis Solis MD CO2 [Moles/Vol] 24 mmol/L Normal 20-31 [place] Comment on above: Performed By: #### H H, BMPX #### [facility] [employer] [address] [place] [address] Paper Tube Grader: Luis Solis MD Creatinine [Mass/Vol] 1.62 mg/dL High 0.50-0.90 [place] Comment on above: Performed By: #### H H, BMPX #### [facility] [employer] [address] [place] [address] Paper Tube Grader: Luis Solis MD GFR/1.73 sq M.predicted among non-blacks MDRD (S/P/Bld) [Vol rate/Area] 33 mL/min/{1.73_m2} Low >60 [place] Comment on above: Result Comment: Effective Aug [...] Performed By: #### H H, BMPX #### [facility] [employer] [address] [place] [address] Paper Tube Grader: Luis Solis MD Glucose [Mass/Vol] 272 mg/dL High 70-99 [place] Comment on above: Performed By: #### H H, BMPX #### [facility] [employer] [address] [place] [address] Paper Tube Grader: Luis Solis MD Potassium [Moles/Vol] 4.4 mmol/L Normal 3.7-5.3 [place] Comment on above: Performed By: #### H H, BMPX #### [facility] [address] [place] [address] Paper Tube Grader: Luis Solis MD Protein [Mass/Vol] 7.3 g/dL Normal 6.4-8.3 [place] Comment on above: Performed By: #### H H, BMPX #### [facility] [employer] [address] [place] [address] Paper Tube Grader: Luis Solis MD Sodium [Moles/Vol] 139 mmol/L Normal 135-144 [place] Comment on above: Performed By: #### H H, BMPX #### [facility] [employer] [address] [place] [address] Paper Tube Grader: Luis Solis MD Urea nitrogen [Mass/Vol] 22 mg/dL Normal 8-23 [place] Comment on above: Performed By: #### H H, BMPX #### [facility] [employer] [address] [place] [address] Paper Tube Grader: Luis Solis MD Lactate, Sepsison 09-28-2022 Lactic Acid,Sep Wbld 0.6 mmol/L Normal 0.5-1.9 [place] Comment on above: Performed By: #### R EJEC, BMPX #### [facility] [employer] [address] [place] [address] Paper Tube Grader: Luis Solis MD Lactic Acid,Sep Wbld 1.5 mmol/L Normal 0.5-1.9 [place] Comment on above: Performed By: #### H H, BMPX #### [facility] [employer] [address] [place] [address] Paper Tube Grader: Luis Solis MD Legionella Ag, Uron 09-28-20 Legionella Ag, Ur Negative Normal NEG [facility] Comment on above: Result Comment: L. p neumophila serogroup 1 antigen not detected. A negative result does not exclude infection with Leginella pnemophila serogroup 1 nor does it rule out other microbial-caused respiratory infections of disease caused by other serogroups of Legionella pneumophila. Performed By: #### H H, BMPX #### [facility] [address] [place] [phone] Paper [employer] Grader: Luis Solis MD PTon 09-28-2022 INR Coag (PPP) [Relative time] 1.1 {INR} Normal [place] Comment on above: Result Comment: Therapeutic Range: Moderate Anticoagulant Intensity: INR = 2.0-3.0 High Anticoagulant Intensity: INR = 2.5-3.5 Performed By: #### H H, BMPX #### [facility] [address] [place] [phone] Paper Tube Grader: Luis Solis MD PT Coag (PPP) [Time] 11.8 s Normal 9.1-12.3 [place] Comment on above: Performed By: #### H H, BMPX #### [facility] [address] [place] [phone] Paper [employer] Grader: Luis Solis MD [id number] 09-28-2022 SARS-CoV-2 (COVID-19) RNA SIRI+probe Ql (Unsp spec) Not detected Normal [facility] [place] Comment on above: Result Comment: Rapid NAAT: [...] management decisions. Fact sheet for Healthcare Providers: https://www.fda.gov/media/801003/download Fact sheet for Patients: https://www.fda.gov/media/240373/download Methodology: Isothermal Nucleic Acid Amplification Performed By: #### R CHITO, BMPX #### [facility] [address] [place] [address] Paper Tube Grader: Luis Solis MD Sedimentation Rateon 022 Sedimentation Rate 61 mm/Hr High 0-30 [place] Comment on above: Performed By: #### R CHITO, BMPX #### [facility] [address] [place] [address] Paper Tube Grader: Luis Solis MD Strep pneum Ag,CSF/Uron 09-15 Strep pneum Ag Negative Normal [place] Comment on above: Result Comment: Stre p pneumoniae antigen not detected Performed By: #### R CHITO, BMPX #### [facility] [address] [place] [address] Paper Tube Grader: Luis Solis MD Strep pneu Ag Source .URINE Normal [place] Comment on above: Performed By: #### R CHITO, BMPX #### [facility] [employer] [address] [place] [address] Paper Tube Grader: Luis Solis MD Troponinon 09-28-2022 Troponin, High Sens 222 ng/L Critically high 0-14 [place] Comment on above: Result Comment: High Sensitivity Troponin values cannot be compared with other Troponin methodologies. Patients with high levels of Biotin oral intake (i.e >5mg/day) may have falsely decreased Troponin levels. Samples collected within 8 hours of biotin intake may require additional information for diagnosis. Performed By: #### R CHITO, BMPX #### [facility] [address] [place] [address] Paper Tube Grader: Lius Solis MD Troponin, High Sens 219 ng/L Critically high 0-14 [place] Comment on above: Result Comment: High Sensitivity Troponin values cannot be compared with other Troponin methodologies. Patients with high levels of Biotin oral intake (i.e >5mg/day) may have falsely decreased Troponin levels. Samples collected within 8 hours of biotin intake may require additional information for diagnosis. Performed By: #### H H, BMPX #### [facility] [address] [place] [address] Paper Tube Grader: Luis Solis MD Type + Screenon 09-28-2022 Type + Screen Sample Expiration 10/01/2022,2359 Arm Band Number BE [id number] ABO/Rh(D) O NEGATIVE Antibody Screen NEGATIVE Normal [place] Comment on above: Performed By: #### H H, BMPX #### [employer] [address] [place] [address] Paper Tube Grader: Luis Solis MD Urinalysis w/ Microon 2021 Bacteria MANY Abnormal NONE [place] Comment on above: Performed By: #### H H, BMPX #### [facility] [address] [place] [address] Paper Tube Grader: Luis Solis MD Bilirubin, SemiQt,Ur Negative Normal NEG [place] Comment on above: Performed By: #### H H, BMPX #### [facility] [address] [place] [address] Paper Tube Grader: Luis Solis MD Blood, Urine Negative Normal NEG [place] Comment on above: Performed By: #### H H, BMPX #### [employer] [address] [place] [address] Paper Tube Grader: Luis Solis MD Casts 0 TO 2 HYALINE Normal 0-8 [place] Comment on above: Result Comment: Refe rence range defined for non-centrifuged specimen. Performed By: #### H H, BMPX #### [employer] [address] [place] [address] Paper Tube Grader: Luis Solis MD Clarity (U) Cloudy Abnormal CLEAR [place] Comment on above: Performed By: #### H H, BMPX #### [address] [address] [employer] Grader: Luis Solis MD Color (U) Yellow Normal YEL [place] Comment on above: Performed By: #### H H, BMPX #### [address] [address] Paper [employer] Grader: Luis Solis MD Epithelial cells LM Ql (Urine sed) 5 TO 10 Normal 0-5 [place] Comment on above: Performed By: #### H H, BMPX #### [address] [address] Paper [employer] Grader: Luis Solis MD Glucose Ql (U) 2+ Abnormal NEG [place] Comment on above: Performed By: #### H H, BMPX #### [address] [address] Paper Tube Grader: Luis Solis MD Ketones Ql (U) TRACE Abnormal NEG [place] Comment on above: Performed By: #### H H, BMPX #### [address] [address] Paper T[employer] Grader: Luis Solis MD Leukocyte esterase Test strip Ql (U) TRACE Abnormal NEG [place] Comment on above: Performed By: #### H H, BMPX #### [address] [address] [employer] Grader: Luis Solis MD Nitrite,Ur Negative Normal NEG [place] Comment on above: Performed By: #### H H, BMPX #### [address] [address] Paper T[employer] Grader: Luis Solis MD PH,Ur 5.5 Normal 5.0-8.0 [place] Comment on above: Performed By: #### H H, BMPX #### [address] [address] Paper Tube Grader: Luis Solis MD Protein Ql (U) TRACE Abnormal NEG [place] Comment on above: Performed By: #### H H, BMPX #### [address] [address] Paper T[employer] Grader: Luis Solis MD Spec. [place],Ur 1.018 Normal 1.005-1.030 [facility] Comment on above: Performed By: #### H H, BMPX #### [address] [address] Paper Tube Grader: Luis Solis MD Urine RBC's 0 TO 2 Normal 0-4 [place] Comment on above: Result Comment: Refe rence range defined for non-centrifuged specimen. Performed By: #### H H, BMPX #### [address] [address] Paper T[employer] Grader: Luis Solis MD Urine WBC's 10 TO 20 Normal 0-5 [place] Comment on above: Performed By: #### H H, BMPX #### [address] [address] [employer] Grader: Luis Solis MD Urobilinogen,Ur Normal Normal NORM [place] Comment on above: Performed By: #### H H, BMPX #### [address] [address] Paper [employer] Grader: Luis Solis MD XR CHEST PORTABLEon 09-28-20 [...] Garth Herr MD 09/28/22 Final result Normal [place] CT BRAIN WO CONTRASTon 03-31 CT BRAIN WO CONTRAST [facility] Department of Radiology [address] [place] [address] ===== Patient Name: CUCA GOODWIN : 1945 Sex: F Age: Race: White Pt. 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 Electronically signed: Mari Chavez. Transcribed by: [email or web address], User Resident: Electronically Signed by: MARI CHAVEZ @ 03/31/2022 03:46 PM Normal [facility] Comment on above: Order Comment: hydro cephalus s/p network programmer shunt INDUSTRIAL ENGINEERING MANAGER SHUNT SERIESon 03-31-2022 INDUSTRIAL ENGINEERING MANAGER SHUNT SERIES [facility] Department of Radiology [address] [place] [id number] ===== Patient Name: CUCA GOODWIN : 1945 Sex: F Age: Race: White Pt. Location: Patient Status: D Ordered Date: 03/31/2022 1:30:00 PM Completed Date: 03/31/2022 01:58 PM Requesting Provider: AVLE BOWSER Attending Provider: VALE BOWSER Report Copy [...] , Ordering Provider - A NIELS RAWLS TOOL AND CUTTER GRINDER , Exam: INDUSTRIAL ENGINEERING MANAGER SHUNT SERIES ===== INDUSTRIAL ENGINEERING MANAGER SHUNT SERIES HISTORY: Shunt evaluation. COMPARISON: 09/17/2020. [...] described. Electronically signed: Lam Chew. Transcribed by: [email or web address], User Resident: Electronically Signed by: LAM CHEW @ 04/03/2022 08:50 AM Normal [facility] [place] [facility] Comment on above: Order Comment: , .br E.brEr/o kinking or discontinuity of shunt tubing and do image perpendicularl to valve to check OP , .brr/o kinking or discontinuity of shunt tubing and do image perpendicularl to valve to check OP , , , Ordering Provider - Danielle RAWLS TOOL AND CUTTER GRINDER , Lipid Profileon 03-26-2021 Cholesterol [Mass/Vol] 117 mg/dL Normal <200 [facility] Comment on above: Result Comment: Cholesterol Guidelines: <200 Desirable 200-240 Borderline >240 Undesirable Performed By: #### L IPR #### [employer] [address] [place], [place] [id number] Paper [employer] Grader: Luis Solis MD Cholesterol in HDL [Mass/Vol] 39 mg/dL Low >40 [facility] Comment on above: Result Comment: HDL Guidelines: <40 Undesirable 40-59 Borderline >59 Desirable Performed By: #### L IPR #### [employer] [address] [place], [place] [phone] Paper Tube Grader: Luis Solis MD Cholesterol in LDL [Mass/Vol] 62 mg/dL Normal 0-130 [facility] Comment on above: Result Comment: LDL Guidelines: <100 Desirable 100-129 Near to/above Desirable 130-159 Borderline >159 Undesirable Direct (measured) LDL and calculated LDL are not interchangeable tests. Performed By: #### L IPR #### [facility] [address] [place] [address] Paper Tube Grader: Luis Solis MD Cholesterol.total/C holesterol in HDL [Mass ratio] 3.0 {ratio} Normal <5 [facility] Comment on above: Performed By: #### L IPR #### [address] [place] [address] [employer] Grader: Luis Solis MD Triglyceride [Mass/Vol] 79 mg/dL Normal <150 [facility] Comment on above: Result Comment: Triglyceride Guidelines: <150 Desirable 150-199 Borderline 200-499 High >499 Very high Based on AHA Guidelines for fasting triglyceride, August 2012. Performed By: #### L IPR #### [address] [address] [employer] Grader: Luis Solis MD Cholesterol,VLDL NOT REPORTED Normal 12-14 [facility] Comment on above: Performed By: #### L IPR #### [address] [address] [employer] Grader: Luis Solis MD Uric Acidon 03-24-2021 Urate [Mass/Vol] 6.8 mg/dL High 2.4-5.7 [facility] Comment on above: Performed By: #### U RI #### [facility] [address] [place] [address] [employer] Grader: Giovanny Carpenter MD Uric AcidOrdered By: Lakeshia Henriquez on 03-24-2021 Interpretation and review of laboratory results Abnormal [facility] Phone: Urate [Mass/Vol] 6.8 mg/dL High 2.4 - 5.7 mg/dL [facility] Phone: CBC AUTO DIFFon 03-20-2021 BASO # 0.0 103/ul Normal 0.0-0.1 [facility] Comment on above: Performed By: #### C BC #### [facility] [address] [place], [place] [id number] Ghulam Amy Basophils/100 WBC (Bld) 0.4 % Normal 0.2-2.0 [facility] Comment on above: Performed By: #### C BC #### [facility] [address] [place], [place] [id number] Ghulam Amy EO # 0.4 103/ul Normal 0.0-0.7 [facility] Comment on above: Performed By: #### C BC #### [facility] [address] [place], [place] [id number] Ghulam Amy Eosinophils/100 WBC (Bld) 4.3 % Normal 0.9-7.0 [facility] Comment on above: Performed By: #### C BC #### [facility] [address] [place], [place] [id number] Ghulam Amy Erythrocyte distribution width (RBC) [Ratio] 15.9 % Critically high 11.0-15.0 [facility] Comment on above: Performed By: #### C BC #### [facility] [address] [place], [place] [id number] Ghulam Amy Hematocrit (Bld) [Volume fraction] 28.5 % Critically low 36.0-48.0 [facility] Comment on above: Performed By: #### C BC #### [facility] [address] [place], [place] [id number] Ghulam Amy Hemoglobin (Bld) [Mass/Vol] 8.9 g/dL Critically low 12.0-16.0 [facility] Comment on above: Performed By: #### C BC #### [facility] [address] [place], [place] [id number] Ghulam Amy IG # 0.04 10e3/ul Critically high 0.00-0.03 [facility] Comment on above: Performed By: #### C BC #### [facility] [address] [place], [place] [id number] Ghulam Amy IG % 0.4 % Normal 0.0-0.5 [facility] Comment on above: Performed By: #### C BC #### [facility] [address] [place], [place] [id number] Ghulam Reyes LYMPH # 2.2 103/ul Normal 1.2-3.8 [facility] Comment on above: Performed By: #### C BC #### [facility] [address] [place], [place] [id number] Ghulamgabriela Reyes Lymphocytes/100 WBC (Bld) 21.9 % Normal 20.5-60.0 [facility] Comment on above: Performed By: #### C BC #### [facility] [address] [place], [place] [id number] Ghulam Reyes MANUAL DIFF REQ NO Normal [facility] Comment on above: Performed By: #### C BC #### [facility] [address] [place], [place] [id number] Ghulam Reyes MCH (RBC) [Entitic mass] 27.1 pg Normal 26.7-34.0 [facility] Comment on above: Performed By: #### C BC #### [facility] [address] [place], [place] [id number] Ghulam Reyes MCHC (RBC) [Mass/Vol] 31.2 g/dL Normal 29.9-35.2 [facility] Comment on above: Performed By: #### C BC #### [facility] [address] [place], [place] [id number] Ghulamgabriela Reyes MCV (RBC) [Entitic vol] 86.9 fL Normal 81.0-99.0 [facility] Comment on above: Performed By: #### C BC #### [facility] [address] [place], [place] [id number] Ghulam Amy MONO # 1.0 103/ul Critically high 0.3-0.8 [facility] Comment on above: Performed By: #### C BC #### [facility] [address] [place], [place] [id number] Ghulamgabriela Sotoen Monocytes/100 WBC (Bld) 10.1 % Normal 1.7-12.0 [facility] Comment on above: Performed By: #### C BC #### [facility] [address] [place], [place] [address] Ghulam Reyes NEUT # 6.2 103/ul Normal 1.4-6.5 [facility] Comment on above: Performed By: #### C BC #### [facility] [address] [place], [place] [address] Ghulam Reyes Neutrophils/100 WBC (Bld) 62.9 % Normal 43.0-75.0 [facility] Comment on above: Performed By: #### C BC #### [facility] [address] [place], [place] [address] Ghulam Reyes Platelet mean volume (Bld) [Entitic vol] 10.2 fL Normal 9.5-13.5 [facility] Comment on above: Performed By: #### C BC #### [facility] [address] [place], [place] [id number] Ghulamgabriela Sotoen PLT 289 103/ul Normal 150-450 [facility] Comment on above: Performed By: #### C BC #### [facility] [address] [place], [place] [id number] Ghulam Amy RBC 3.28 106/ul Critically low 4.20-5.40 [facility] Comment on above: Performed By: #### C BC #### [facility] [address] [place] [phone] Ghulam Reyes WBC 9.9 103/ul Normal 4.0-11.0 [facility] Comment on above: Performed By: #### C BC #### [facility] [address] [place], [place] [id number] Ghulam Reyes PROF 14(COMP METB)on 021 Albumin [Mass/Vol] 2.8 g/dL Critically low 3.5-5.0 [facility] Comment on above: Performed By: #### C MP #### [facility] [address] [place] [address] Ghulam Reyes Albumin/Globulin [Mass ratio] 0.6 {ratio} Normal [facility] Comment on above: Performed By: #### C MP #### [facility] [address] [place], [place] [address] Ghulam Amy ALP [Catalytic activity/Vol] 95 U/L Normal 38-126 [facility] Comment on above: Performed By: #### C MP #### [facility] [address] [id number] Ghulam Amy ALT [Catalytic activity/Vol] 16 U/L Normal 9-52 [facility] Comment on above: Performed By: #### C MP #### [facility] [address] [place], [place] [id number] Ghulam Amy Anion gap [Moles/Vol] 11.6 mmol/L Normal [facility] Comment on above: Performed By: #### C MP #### [facility] [address] [place] [address] Ghulam Amy AST [Catalytic activity/Vol] 13 U/L Critically low 14-36 [facility] Comment on above: Performed By: #### C MP #### [facility] [address] [place] [address] Ghulam Amy Bilirubin [Mass/Vol] 0.4 mg/dL Normal 0.2-1.3 [facility] Comment on above: Performed By: #### C MP #### [facility] [address] [place], [place] [id number] Ghulam Amy Calcium [Mass/Vol] 8.9 mg/dL Normal 8.4-10.2 [facility] Comment on above: Performed By: #### C MP #### [facility] [address] [place], [place] [id number] Ghulam Amy Chloride [Moles/Vol] 103 mmol/L Normal 98-107 [facility] Comment on above: Performed By: #### C MP #### [facility] [address] [place], [place] [id number] Ghulam Amy CO2 [Moles/Vol] 27.4 mmol/L Normal 22.0-30.0 [facility] Comment on above: Performed By: #### C MP #### [facility] [address] [place], [place] [id number] Ghulam Amy Creatinine [Mass/Vol] 1.86 mg/dL Critically high 0.52-1.04 [facility] Comment on above: Performed By: #### C MP #### [facility] [address] [id number] Ghulam Amy EGFR-AF QATARI 32 mL/min/1.73m2 Critically low >=60 [facility] Comment on above: Performed By: #### C MP #### [facility] [address] [id number] Ghulam Amy EGFR-NON AF QATARI 26 mL/min/1.73m2 Critically low >=60 [facility] Comment on above: Performed By: #### C MP #### [facility] [address] [place], [place] [id number] Ghulam Amy Globulin (S) [Mass/Vol] 4.6 g/dL Normal [facility] Comment on above: Performed By: #### C MP #### [facility] [address] [place] [address] Ghulam Amy Glucose [Mass/Vol] 174 mg/dL Critically high 74-106 [facility] Comment on above: Performed By: #### C MP #### [facility] [address] [place], [place] [id number] Ghulam Amy Potassium [Moles/Vol] 4.0 mmol/L Normal 3.4-5.0 [facility] Comment on above: Performed By: #### C MP #### [facility] [address] [place], [place] [id number] Ghulam Amy Protein [Mass/Vol] 7.4 g/dL Normal 6.1-8.2 [facility] Comment on above: Performed By: #### C MP #### [facility] [address] [place], [place] [id number] Ghulam Amy Sodium [Moles/Vol] 138 mmol/L Normal 137-145 [facility] Comment on above: Performed By: #### C MP #### [facility] [address] [place], [place] [id number] Ghulam Amy Urea nitrogen [Mass/Vol] 24.0 mg/dL Critically high 7.0-17.0 [facility] Comment on above: Performed By: #### C MP #### [facility] [address] [place] [address] Ghulam Amy Urea nitrogen/Creatinine [Mass ratio] 12.9 mg/mg Normal [facility] Comment on above: Performed By: #### C MP #### [facility] [address] [place] [address] Ghulam Amy RESPIRATORY PANEL PLUSon Adenovirus Not detected Normal NOT DETECTED [facility] Comment on above: Performed By: #### R SPLUS #### [facility] [address] [place] [address] Ghulam Amy B. Parapertusis Not detected Normal NOT DETECTED [facility] Comment on above: Performed By: #### R SPLUS #### [facility] [address] [place] [address] Ghulam Amy B. Pertussis Not detected Normal NOT DETECTED [facility] Comment on above: Performed By: #### R SPLUS #### [facility] [address] [place] [address] Ghulam Amy Chlamydia Pneumoniae Not detected Normal NOT DETECTED [facility] Comment on above: Performed By: #### R SPLUS #### [facility] [address] [place] [address] Ghulam Amy Coronavirus 229E Not detected Normal NOT DETECTED [facility] Comment on above: Performed By: #### R SPLUS #### [facility] [address] [place] [address] Ghulam Amy Coronavirus HKU1 Not detected Normal NOT DETECTED [facility] Comment on above: Performed By: #### R SPLUS #### [facility] [address] [place] [address] Ghulam Amy Coronavirus NL63 Not detected Normal NOT DETECTED [facility] Comment on above: Performed By: #### R SPLUS #### [facility] [address] [place] [address] Ghulam Amy Coronavirus OC43 Not detected Normal NOT DETECTED [facility] Comment on above: Performed By: #### R SPLUS #### [facility] [address] [address] Ghulam Amy Influenza A H1 2009 Not detected Normal NOT DETECTED [facility] Comment on above: Performed By: #### R SPLUS #### [facility] [address] [place] [address] Ghulam Amy Influenza B Not detected Normal NOT DETECTED [facility] Comment on above: Performed By: #### R SPLUS #### [facility] [address] [address] Ghulam Amy Metapneumovirus Not detected Normal NOT DETECTED [facility] Comment on above: Performed By: #### R SPLUS #### [facility] [address] [place] [address] Ghulam Amy Mycoplas. Pneumoniae Not detected Normal NOT DETECTED [facility] Comment on above: Performed By: #### R SPLUS #### [facility] [address] [place] [address] Ghulam Amy Parainfluenza 1 Not detected Normal NOT DETECTED [facility] Comment on above: Performed By: #### R SPLUS #### [facility] [address] [place] [address] Ghulam Amy Parainfluenza 2 Not detected Normal NOT DETECTED [facility] Comment on above: Performed By: #### R SPLUS #### [facility] [address] [place] [address] Ghulam Amy Parainfluenza 3 Not detected Normal NOT DETECTED [facility] Comment on above: Performed By: #### R SPLUS #### [facility] [address] [place] [address] Ghulam Amy Parainfluenza 4 Not detected Normal NOT DETECTED [facility] Comment on above: Performed By: #### R SPLUS #### [facility] [address] [place] [address] Ghulam Amy Rhino/Enterovirus Not detected Normal NOT DETECTED [facility] Comment on above: Performed By: #### R SPLUS #### [facility] [address] [place] [address] Ghulam Reyes RP2 Header 1 RESPIRATORY PANEL: VIRUSES Normal [facility] Comment on above: Performed By: #### R SPLUS #### [facility] [address] [place] [address] Ghulam Amy RP2 Header 2 RESPIRATORY PANEL: BACTERIA Normal [facility] Comment on above: Performed By: #### R SPLUS #### [facility] [address] [place], [place] [address] RP2 Header 4 EUA SEE BELOW Normal [facility] Comment on above: Result Comment: This test is not yet approved or cleared by the [place] FDA. When there are no FDA-approved or cleared tests available, and other criteria are met, FDA can make tests available under an emergency access mechanism called an Emergency Use Authorization (EUA). The EUA for this test is supported by the Bonding Machine Tender of Health and Human Service?s (HHS?s) declaration [...] used). Performed By: #### R SPLUS #### [facility] [address] [place] [address] [facility] Not detected Normal NOT DETECTED [facility] Comment on above: Performed By: #### R SPLUS #### [facility] [address] [place] [address] [facility] SARS-CoV-2 (COVID-19) RNA SIRI+probe Ql (Unsp spec) Not detected Normal NOT DETECTED [facility] Comment on above: Performed By: #### R SPLUS #### [facility] [address] [place] [address] Ghulam Amy URIC ACID SERUMon 03-20-2021 Urate [Mass/Vol] 7.4 mg/dL Critically high 2.5-6.2 [facility] Comment on above: Performed By: #### U GIRISH #### [facility] [address] [place], [place] [address] Ghulam Amy CBC AUTO DIFFon 03-19-2021 BASO # 0.0 103/ul Normal 0.0-0.1 [facility] Comment on above: Performed By: #### C BC #### [facility] [address] [id number] Ghulam Amy Basophils/100 WBC (Bld) 0.3 % Normal 0.2-2.0 [facility] Comment on above: Performed By: #### C BC #### [facility] [address] [address] Ghulam Amy EO # 0.1 103/ul Normal 0.0-0.7 [facility] Comment on above: Performed By: #### C BC #### [facility] [address] [place] [address] Ghulam Amy Eosinophils/100 WBC (Bld) 0.9 % Normal 0.9-7.0 [facility] Comment on above: Performed By: #### C BC #### [facility] [address] [address] Ghulam Amy Erythrocyte distribution width (RBC) [Ratio] 15.5 % Critically high 11.0-15.0 [facility] Comment on above: Performed By: #### C BC #### [facility] [address] [place] [address] Ghulam Amy Hematocrit (Bld) [Volume fraction] 28.1 % Critically low 36.0-48.0 [facility] Comment on above: Performed By: #### C BC #### [facility] [address] [id number] Ghulam Amy Hemoglobin (Bld) [Mass/Vol] 8.9 g/dL Critically low 12.0-16.0 [facility] Comment on above: Performed By: #### C BC #### [facility] [address] [address] Ghulam Amy IG # 0.05 10e3/ul Critically high 0.00-0.03 [facility] Comment on above: Performed By: #### C BC #### [facility] [address] [address] Ghulam Amy IG % 0.5 % Normal 0.0-0.5 [facility] Comment on above: Performed By: #### C BC #### [facility] [address] [id number] Ghulam Amy LYMPH # 1.9 103/ul Normal 1.2-3.8 [facility] Comment on above: Performed By: #### C BC #### [facility] [address] [place], [place] [address] Ghulam Reyes Lymphocytes/100 WBC (Bld) 17.2 % Critically low 20.5-60.0 [facility] Comment on above: Performed By: #### C BC #### [facility] [address] [place] [address] Ghulam Reyes MANUAL DIFF REQ NO Normal [facility] Comment on above: Performed By: #### C BC #### [facility] [address] [place] [address] Ghulamgabriela Reyes MCH (RBC) [Entitic mass] 27.1 pg Normal 26.7-34.0 [facility] Comment on above: Performed By: #### C BC #### [facility] [address] [place] [address] Ghulam Reyes MCHC (RBC) [Mass/Vol] 31.7 g/dL Normal 29.9-35.2 [facility] Comment on above: Performed By: #### C BC #### [facility] [address] [place] [address] Ghulamgabriela Reyes MCV (RBC) [Entitic vol] 85.4 fL Normal 81.0-99.0 [facility] Comment on above: Performed By: #### C BC #### [facility] [address] [place], [place] [address] Ghulam Amy MONO # 1.0 103/ul Critically high 0.3-0.8 [facility] Comment on above: Performed By: #### C BC #### [facility] [address] [place], [place] [address] Ghulam Reyes Monocytes/100 WBC (Bld) 9.5 % Normal 1.7-12.0 [facility] Comment on above: Performed By: #### C BC #### [facility] [address] [id number] Ghulam Reyes NEUT # 7.7 103/ul Critically high 1.4-6.5 [facility] Comment on above: Performed By: #### C BC #### [facility] [address] [id number] Ghulam Reyes Neutrophils/100 WBC (Bld) 71.6 % Normal 43.0-75.0 [facility] Comment on above: Performed By: #### C BC #### [facility] [address] [id number] Ghulam Reyes Platelet mean volume (Bld) [Entitic vol] 10.1 fL Normal 9.5-13.5 [facility] Comment on above: Performed By: #### C BC #### [facility] [address] [address] Ghulam Reyes PLT 285 103/ul Normal 150-450 [facility] Comment on above: Performed By: #### C BC #### [facility] [address] [id number] Ghulam Reyes RBC 3.29 106/ul Critically low 4.20-5.40 [facility] Comment on above: Performed By: #### C BC #### [facility] [address] [id number] Ghulam Reyes WBC 10.7 103/ul Normal 4.0-11.0 [facility] Comment on above: Performed By: #### C BC #### [facility] [address] [id number] Ghulam Reyes MAGNESIUMon 03-19-2021 Magnesium [Mass/Vol] 1.9 mg/dL Normal 1.6-2.3 [facility] Comment on above: Performed By: #### M G ####[facility] [address] [id number] Reyes POINT OF CARE GLUCOSEon Glucose [Mass/Vol] 68 mg/dL Critically low 74-106 [facility] Comment on above: Performed By: #### P OCGLUC #### [facility] [address] [place], [place] [address] Ghulam Amy Glucose [Mass/Vol] 91 mg/dL Normal 74-106 [facility] Comment on above: Performed By: #### P OCGLUC #### [facility] [address] [id number] Ghulam Amy Glucose [Mass/Vol] 136 mg/dL Critically high 74-106 [facility] Comment on above: Performed By: #### P OCGLUC #### [facility] [address] [place], [place] [address] Ghulam Sotoen PROF 14(COMP METB)on 021 Albumin [Mass/Vol] 2.7 g/dL Critically low 3.5-5.0 [facility] Comment on above: Performed By: #### C MP #### [facility] [address] [place], [place] [address] Ghulamgabriela Reyes Albumin/Globulin [Mass ratio] 0.6 {ratio} Normal [facility] Comment on above: Performed By: #### C MP #### [facility] [address] [place], [place] [address] Ghulam Amy ALP [Catalytic activity/Vol] 99 U/L Normal 38-126 [facility] Comment on above: Performed By: #### C MP #### [facility] [address] [place] [address] Ghulam Amy ALT [Catalytic activity/Vol] 14 U/L Normal 9-52 [facility] Comment on above: Performed By: #### C MP #### [facility] [address] [place], [place] [address] Ghulam Amy Anion gap [Moles/Vol] 10.5 mmol/L Normal [facility] Comment on above: Performed By: #### C MP #### [facility] [address] [place], [place] [address] Ghulam Amy AST [Catalytic activity/Vol] 13 U/L Critically low 14-36 [facility] Comment on above: Performed By: #### C MP #### [facility] [address] [place], [place] [address] Ghulam Amy Bilirubin [Mass/Vol] 0.5 mg/dL Normal 0.2-1.3 [facility] Comment on above: Performed By: #### C MP #### [facility] [address] [place], [place] [address] Ghulam Amy Calcium [Mass/Vol] 9.1 mg/dL Normal 8.4-10.2 [facility] Comment on above: Performed By: #### C MP #### [facility] [address] [address] Ghulam Amy Chloride [Moles/Vol] 104 mmol/L Normal 98-107 [facility] Comment on above: Performed By: #### C MP #### [facility] [address] [address] Ghulam Amy CO2 [Moles/Vol] 27.2 mmol/L Normal 22.0-30.0 [facility] Comment on above: Performed By: #### C MP #### [facility] [address] [address] Ghulam Amy Creatinine [Mass/Vol] 1.57 mg/dL Critically high 0.52-1.04 [facility] Comment on above: Performed By: #### C MP #### [facility] [address] [address] Ghulam Amy EGFR-AF QATARI 39 mL/min/1.73m2 Critically low >=60 [facility] Comment on above: Performed By: #### C MP #### [facility] [address] [id number] Ghulam Amy EGFR-NON AF QATARI 32 mL/min/1.73m2 Critically low >=60 [facility] Comment on above: Performed By: #### C MP #### [facility] [address] [place], [place] [address] Ghulam Amy Globulin (S) [Mass/Vol] 4.6 g/dL Normal [facility] Comment on above: Performed By: #### C MP #### [facility] [address] [place], [place] [address] Ghulam Amy Glucose [Mass/Vol] 209 mg/dL Critically high 74-106 [facility] Comment on above: Performed By: #### C MP #### [facility] [address] [place], [place] [address] Ghulam Amy Potassium [Moles/Vol] 3.7 mmol/L Normal 3.4-5.0 [facility] Comment on above: Performed By: #### C MP #### [facility] [address] [place], [place] [address] Ghulam Amy Protein [Mass/Vol] 7.3 g/dL Normal 6.1-8.2 [facility] Comment on above: Performed By: #### C MP #### [facility] [address] [place], [place] [address] Ghulam Amy Sodium [Moles/Vol] 138 mmol/L Normal 137-145 [facility] Comment on above: Performed By: #### C MP #### [facility] [address] [place], [place] [address] Ghulam Amy Urea nitrogen [Mass/Vol] 28.0 mg/dL Critically high 7.0-17.0 [facility] Comment on above: Performed By: #### C MP #### [facility] [address] [place], [place] [address] Ghulam Amy Urea nitrogen/Creatinine [Mass ratio] 17.8 mg/mg Normal [facility] Comment on above: Performed By: #### C MP #### [facility] [address] [place], [place] [address] Ghulam Amy Vital Signs Date Time Vital Sign Value Performing Clinician Facility 08-28-2024 08:15-0400 Body height 165.1 cm Pam RICHEY Work Phone: [facility] 08-28-2024 08:15-0400 Body mass index (BMI) [Ratio] 34.35 kg/m2 Pam RICHEY Work Phone: [facility] 08-28-2024 08:15-0400 Body temperature 97.5 [degF] Pam Ley NURSING ATTENDANT-[employer] Work Phone: [facility] 08-28-2024 08:15-0400 Body weight 93.62 kg Pam Ley NURSING ATTENDANT-[employer] Work Phone: [facility] 08-28-2024 08:15-0400 Diastolic blood pressure 60 mm[Hg] Pam Ley NURSING ATTENDANT-[employer] Work Phone: [facility] 08-28-2024 08:15-0400 Heart rate 74 /min Pam Ley NURSING ATTENDANT-[employer] Work Phone: [facility] 08-28-2024 08:15-0400 Respiratory rate 18 /min Pam Ley NURSING ATTENDANT-[employer] Work Phone: [facility] 08-28-2024 08:15-0400 SaO2% (BldA) [Mass fraction] 90 % Pam Ley NURSING ATTENDANT-[employer] Work Phone: [facility] 08-28-2024 08:15-0400 Systolic blood pressure 120 mm[Hg] Pam Ley NURSING ATTENDANT-[employer] Work Phone: [facility] 02-09-2024 13:00-0400 Body height 165.1 cm Pam Ley NURSING ATTENDANT-[employer] Work Phone: [facility] 02-09-2024 13:00-0400 Body mass index (BMI) [Ratio] 33.35 kg/m2 Pam Ley NURSING ATTENDANT-[employer] Work Phone: [facility] 02-09-2024 13:00-0400 Body temperature 98.2 [degF] Pam Mcneilillo NURSING ATTENDANT-[employer] Work Phone: [facility] 02-09-2024 13:00-0400 Body weight 90.9 kg Pam Ley NURSING ATTENDANT-[employer] Work Phone: [facility] 02-09-2024 13:00-0400 Diastolic blood pressure 72 mm[Hg] Pam Ley APRN-[employer] Work Phone: [facility] 02-09-2024 13:00-0400 Heart rate 79 /min Pam Ley APRN-[employer] Work Phone: [facility] 02-09-2024 13:00-0400 Respiratory rate 20 /min Pam Ley APRN-[employer] Work Phone: [facility] 02-09-2024 13:00-0400 SaO2% (BldA) [Mass fraction] 97 % Pam Ley APRN-[employer] Work Phone: [facility] 02-09-2024 13:00-0400 Systolic blood pressure 134 mm[Hg] Pam Ley APRN-[employer] Work Phone: [facility] 12-15-2023 14:51-0500 Body height 165.1 cm Pam Ley APRN-[employer] Work Phone: [facility] 12-15-2023 14:51-0500 Body mass index (BMI) [Ratio] 31.02 kg/m2 Pam Ley APRN-[employer] Work Phone: [facility] 12-15-2023 14:51-0500 Body temperature 98.29 [degF] Pam Ley APRN-[employer] Work Phone: [facility] 12-15-2023 14:51-0500 Body weight 84.54 kg Pam Ley APRN-[employer] Work Phone: [facility] 12-15-2023 14:51-0500 Diastolic blood pressure 60 mm[Hg] Pam Ley APRN-[employer] Work Phone: [facility] 12-15-2023 14:51-0500 Heart rate 89 /min Pambrannon Ley APRN-[employer] Work Phone: [facility] 12-15-2023 14:51-0500 SaO2% (BldA) [Mass fraction] 94 % Pam Ley APRN-[employer] Work Phone: [facility] 12-15-2023 14:51-0500 Systolic blood pressure 100 mm[Hg] Pam Ley APRN-[employer] Work Phone: [facility] 11-25-2023 13:56-0500 Body height 165.1 cm Rambo Muñoz MD Work Phone: [facility] 11-25-2023 13:56-0500 Body mass index (BMI) [Ratio] 31.45 kg/m2 Rambo Muñoz MD Work Phone: [facility] 11-25-2023 13:56-0500 Body temperature 99 [degF] Rambo Muñoz MD Work Phone: [facility] 11-25-2023 13:56-0500 Body weight 85.73 kg Rambo Muñoz MD Work Phone: [facility] 11-25-2023 13:56-0500 Diastolic blood pressure 57 mm[Hg] Rambo Muñoz MD Work Phone: [facility] 11-25-2023 13:56-0500 Heart rate 65 /min Rambo Muñoz MD Work Phone: [facility] 11-25-2023 13:56-0500 Respiratory rate 16 /min Rambo Muñoz MD Work Phone: [facility] 11-25-2023 13:56-0500 SaO2% (BldA) [Mass fraction] 91 % Rambo Muñoz MD Work Phone: [facility] 11-25-2023 13:56-0500 Systolic blood pressure 141 mm[Hg] Rambo Muñoz MD Work Phone: [facility] 01-13-2023 07:13-0500 Body temperature 98.01 [degF] Luna Daniels MD Work Phone: [employer] 01-13-2023 07:13-0500 Diastolic blood pressure 54 mm[Hg] Luna Daniels MD Work Phone: [employer] 01-13-2023 07:13-0500 Heart rate 57 /min Luna Daniels MD Work Phone: [employer] 01-13-2023 07:13-0500 Respiratory rate 18 /min Luna Daniels MD Work Phone: [employer] 01-13-2023 07:13-0500 SaO2% (BldA) [Mass fraction] 98 % Luna Daniels MD Work Phone: [employer] 01-13-2023 07:13-0500 Systolic blood pressure 141 mm[Hg] Luna Daniels MD Work Phone: [employer] 12-11-2022 07:58-0500 Body temperature 98.8 [degF] Luna Daniels MD Work Phone: [employer] 12-11-2022 07:58-0500 Diastolic blood pressure 56 mm[Hg] Luna Daniels MD Work Phone: [employer] 12-11-2022 07:58-0500 Heart rate 85 /min Luna Daniels MD Work Phone: [employer] 12-11-2022 07:58-0500 Respiratory rate 16 /min Luna Daniels MD Work Phone: [employer] 12-11-2022 07:58-0500 SaO2% (BldA) [Mass fraction] 97 % Luna Daniels MD Work Phone: [employer] 12-11-2022 07:58-0500 Systolic blood pressure 156 mm[Hg] Luna Daniels MD Work Phone: [employer] 12-07-2022 11:44-0500 Body height 165.1 cm Luna Daniels MD Work Phone[facility] 12-07-2022 11:44-0500 Body mass index (BMI) [Ratio] 34.61 kg/m2 Luna Daniels MD Work Phone: [facility] 12-07-2022 11:44-0500 Body weight 94.35 kg Luna Daniels MD Work Phone: [facility] 11-24-2022 11:44-0500 Body height 165.1 cm Stv B [facility] [employer] 11-24-2022 11:44-0500 Body mass index (BMI) [Ratio] 34.95 kg/m2 Stv B [facility] [employer] 11-24-2022 11:44-0500 Body temperature 98.4 [degF] Stv [facility] [employer] 11-24-2022 11:44-0500 Body weight 95.25 kg Stv B [facility] [employer] 11-24-2022 11:44-0500 Diastolic blood pressure 45 mm[Hg] Stv B [facility] [employer] 11-24-2022 11:44-0500 Heart rate 60 /min Stv [facility] [employer] 11-24-2022 11:44-0500 Respiratory rate 15 /min Stv [facility] [employer] 11-24-2022 11:44-0500 SaO2% (BldA) [Mass fraction] 93 % Stv B [facility] 11-24-2022 11:44-0500 Systolic blood pressure 131 mm[Hg] Stv B [facility] [employer] Encounters Encounter Date Encounter Type Care Provider Facility Start: 10-11-2024 End: 10-11-2024 Emergency department patient visit [facility] Start: 10-09-2024 End: 10-10-2024 Emergency department patient visit [facility] Start: 09-15-2024 End: 09-15-2024 ambulatory MARC RIVERO [facility] Start: 09-06-2024 End: 09-06-2024 Telephone encounter Alice Morrison CMA [facility] Start: 08-29-2024 End: 09-04-2024 Refill Jaylan D Krotzer NURSING ATTENDANT-[employer] Work Phone: [facility] Start: 08-28-2024 End: 08-28-2024 ambulatory [facility] Start: 08-28-2024 End: 08-28-2024 Transitional care manage srvc 7 day discharge [facility] NURSING ATTENDANT-[employer] Work Phone: [facility] Comment on above: Hypoglycemia (Primar y Dx); Need for influenza vaccination; Altered mental status, unspecified altered mental status type Start: 08-24-2024 End: 08-24-2024 Refill Jaylan D Krotzer NURSING ATTENDANT-[employer] Work Phone: [facility] Start: 08-23-2024 End: 08-24-2024 ambulatory [facility] Start: 08-16-2024 End: 08-18-2024 Telephone encounter Delisa Torres RN [facility] Comment on above: Transition Of Care Start: 08-12-2024 End: 08-14-2024 Evaluation and management of inpatient MELY Patel [facility] Start: 06-25-2024 End: 06-27-2024 Emergency department patient visit LYDIA ZUÑIGA [facility] Start: 06-21-2024 End: 06-21-2024 ambulatory [facility] Start: 06-13-2024 End: 06-16-2024 Emergency department patient visit ALIDA ALLEN [facility] Start: 06-13-2024 End: 2024 Evaluation and management of inpatient [facility] Start: 06-02-2024 End: 06-02-2024 ambulatory RAMBO MUÑOZ [facility] Start: 05-25-2024 ambulatory [facility] Start: 05-03-2024 End: 05-03-2024 ambulatory [facility] Start: 04-13-2024 End: 04-13-2024 ambulatory SOL BRICE [facility] Start: 03-16-2024 End: 03-17-2024 ambulatory [facility] Start: 03-09-2024 End: 03-09-2024 ambulatory RICKS [facility] Start: 03-02-2024 End: 03-02-2024 ambulatory [facility] Start: 02-29-2024 ambulatory [facility] Start: 02-27-2024 End: 02-29-2024 Emergency department patient visit [facility] Start: 02-18-2024 End: 02-18-2024 ambulatory RICKS [facility] Start: 02-09-2024 End: 02-10-2024 ambulatory [facility] Start: 02-09-2024 End: 02-09-2024 Office outpatient visit 25 minutes Pam Ley NURSING ATTENDANT-[employer] Work Phone: [facility] Comment on above: Acute cystitis witho ut hematuria (Primary Dx); Urge incontinence of urine Start: 02-09-2024 End: 02-09-2024 ambulatory [facility] Start: 01-10-2024 End: 01-10-2024 [facility] Start: 01-04-2024 Maged Muñoz MD Work Phone: [facility] Comment on above: 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, unspecified estrogen receptor status ([facility]) Start: 12-15-2023 End: 12-15-2023 Office outpatient visit 25 minutes Pam Ley NURSING ATTENDANT-[employer] [facility] Comment on above: Upper respiratory tr act infection, unspecified type (Primary Dx); Normal pressure hydrocephalus ([facility]); Moderate episode of recurrent major depressive disorder ([facility]); PVD (peripheral vascular disease) ([facility]); 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 mellitus ([facility]); Stage 3b chronic kidney disease ([facility]); Major depressive disorder in partial remission, unspecified whether recurrent ([facility]); Essential hypertension; GERD without esophagitis; 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 ([facility]) Start: 12-15-2023 End: 12-15-2023 ambulatory PAMKyara LEY [facility] Start: 12-06-2023 Refill Pamkyara haines NURSING ATTENDANT-[employer] AND [employer]ER Work Phone: [facility] Comment on above: Insomnia, unspecifie d type Start: 11-25-2023 End: 11-25-2023 Office outpatient visit 25 minutes Rambo Muñoz MD Work Phone: Stephany Carnes [facility] [place] - [facility] Oncology Comment on above: 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, unspecified estrogen receptor status ([facility]) (Primary Dx); 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 breast in female, estrogen receptor positive ([facility]) Start: 11-25-2023 End: 11-25-2023 ambulatory RAMBO MUÑOZ [facility] Start: 03-23-2023 End: 03-24-2023 ambulatory [facility] Start: 01-13-2023 End: 01-16-2023 [facility] Start: 01-13-2023 End: 01-15-2023 Subsequent hospital visit by physician Luna Daniels MD Work Phone: [facility] 3C Observation Comment on above: Arrived Severe aortic valve stenosis (Primary Dx); Type 2 diabetes mellitus with diabetic neuropathy, with long-term current use of insulin ([facility]); Tremors of nervous system; Family history of coronary arteriosclerosis; CHEL[place] (obstructive sleep apnea) nonadherent with cpap; Stage 3a chronic kidney disease (HCC); Coronary artery disease involving [place] coronary artery of [place] heart without angina pectoris Aortic valve stenosi s, etiology of cardiac valve disease unspecified Start: 12-07-2022 End: 12-11-2022 ambulatory LUNA DANIELS [place] Start: 12-07-2022 End: 12-11-2022 Subsequent hospital visit by physician Luna Daniels MD Work Phone: [facility]A Stepdown Comment on above: Severe aortic valve stenosis (Primary Dx) Start: 11-24-2022 End: 11-25-2022 ambulatory FLIP JHA [place] Start: 11-24-2022 End: 11-24-2022 Subsequent hospital visit by physician Kaylin Legal File Clerk Daryl CRAVEN Legal File Clerk Comment on above: Canceled (Case cance lled) Start: 09-28-2022 End: 09-30-2022 Evaluation and management of inpatient CADEN SANCHEZ [place] Start: 03-31-2022 End: 04-01-2022 ambulatory Vale Bowser Facility:[facility] Start: 03-26-2021 End: 03-27-2021 ambulatory ELIZABETH JAMES TOMLINSON [facility] Start: 03-24-2021 End: 03-25-2021 ambulatory LAKESHIA HENRIQUEZ [facility] Start: 03-24-2021 End: 03-24-2021 Subsequent hospital visit by physician Caden [facility] Start: 03-19-2021 End: 03-20-2021 ambulatory PAM LEY Facility: Procedures Date Procedure Procedure Detail Performing Clinician Start: 08-28-2024 Adult depression scr eening assessment Pam Ley NURSING ATTENDANT-[employer] Work Phone: Start: 06-21-2024 Adult depression scr eening assessment Delisa Torres RN Start: 03-16-2024 Follow-up visit Follow-up VALE BOWSER Start: 03-09-2024 Follow-up visit Follow-up RAMBO MUÑOZ Start: 03-02-2024 Follow-up visit Follow-up PAM LEY Start: 02-09-2024 Urnls dip stick/tabl et rgnt non-auto w/o micrscp Pam Ley [facility] Work Phone: Start: 02-09-2024 Adult depression scr eening assessment Pam Ley NURSING ATTENDANT-[facility] Work Phone: Start: 12-15-2023 Adult depression scr eening assessment Pam Ley NURSING ATTENDANT[facility] Work Phone: Start: 08-17-2023 Adult depression scr eening assessment Rambo Muñoz MD Work Phone: Start: 01-13-2023 Brncdilat rspse spmt ry pre&post-brncdilat admn Namratablake Blair [facility] Work Phone: Start: 01-13-2023 Ct angiography chest w/contrast/noncontrast Namrata Blair [facility] Work Phone: Start: 12-11-2022 Glucose blood reagent strip Luna Daniels MD Work Phone: Start: 12-10-2022 Glucose blood reagent strip Luna Daniels MD Work Phone: Start: 12-10-2022 Glucose blood reagent strip Luna Daniels MD Work Phone: Start: 12-10-2022 Glucose blood reagent strip Luna Daniels MD Work Phone: Start: 12-10-2022 Basic metabolic pane l calcium total Rita J Dafne [facility] Work Phone: Start: 12-10-2022 Antibody screen Luna morales MD Work Phone: Start: 12-10-2022 End: 12-10-2022 Glucose blood reagent strip Luna Daniels MD Work Phone: Start: 12-09-2022 End: 12-09-2022 Blood count hemoglobin Luna Daniels MD Work Phone: Start: 12-09-2022 Glucose blood reagent strip Luna Daniels MD Work Phone: Start: 12-09-2022 End: 12-09-2022 Transfusion of packed red blood cells Radha Moya ALICE Alcantar CNP Work Phone: Start: 12-09-2022 Glucose [...] 03-24-2021 Assay of blood/uric acid Lakeshia Henriquez NURSING ATTENDANT - [employer] Work Phone: Plan of Treatment Date Care Activity Detail Author Start: 08-28-2025 Adult BMI Screening Adult BMI Screening [facility] Start: 08-28-2025 Depression Screening Depression Screening [facility] Start: 08-28-2025 Fall Risk Screening Fall Risk Screening [facility] Start: 08-28-2025 Tobacco Screening Tobacco Screening [facility] Start: 08-24-2025 Adult BMI Screening Adult BMI Screening [facility] Start: 08-23-2025 Tobacco Screening Tobacco Screening [facility] Start: 08-12-2025 Adult BMI Screening Adult BMI Screening [facility] Start: 08-12-2025 Tobacco Screening Tobacco Screening [facility] Start: 06-21-2025 Depression Screening Depression Screening [facility] Start: 06-21-2025 Fall Risk Screening Fall Risk Screening [facility] Start: 12-15-2024 Adult BMI Follow Up Plan Adult BMI Follow Up Plan [facility] Start: 12-15-2024 Adult BMI Screening Adult BMI Screening [facility] Start: 12-15-2024 Depression Screening Depression Screening [facility] Start: 12-15-2024 Fall Risk Screening Fall Risk Screening [facility] Start: 12-15-2024 Tobacco Screening Tobacco Screening [facility] Start: 11-25-2024 Adult BMI Screening Adult BMI Screening [facility] Start: 09-28-2024 Tobacco Screening Tobacco Screening [facility] Start: 09-13-2024 End: 09-13-2024 Patient encounter procedure 09/13/2024 2:00 PM EDT Appointment [facility] [address] [place] [address] [facility] Start: 09-08-2024 End: 09-08-2024 Patient encounter procedure 09/08/2024 2:15 PM EDT Office Visit [facility]phany [facility]anda[facility] - [facility] On[facility] [address] [place] [address] Rambo Muñoz MD [address] [place] [address] [facility]ph[facility] Landaver[facility] - [facility] Start: 08-31-2024 Adult BMI Follow Up Plan Adult BMI Follow Up Plan [facility] Start: 08-17-2024 Depression Screening Depression Screening [facility] Start: 08-10-2024 Fall Risk Screening Fall Risk Screening [facility] Start: 08-10-2024 Medicare Annual Wellness Visit Medicare Annual Wellness Visit [facility] Start: 07-16-2024 Influenza vaccination Influenza Vaccine [facility] Start: 03-09-2024 End: 03-09-2024 Patient encounter procedure 03/09/2024 3:15 PM EDT Office Visit Stephany Landaver[facility] - Medical Oncology [address] [place], [place] [id number] Rambo Muñoz MD [address] [place] [id number] Stephany Landaver[facility] Start: 01-13-2024 End: 01-13-2024 Patient encounter procedure 01/13/2024 1:00 PM EST Office Visit [facility] [address] [place] [id number] Pam Ley, NURSING ATTENDANT-TOOL [employer]ER [address] [place] [id number] [facility] Start: 09-02-2023 Lipid panel Lipids [facility] Start: 02-02-2023 End: 02-02-2023 Patient encounter procedure 02/02/2023 Appointment IP Unit [facility] Legal File Clerk Start: 01-18-2023 End: 01-14-2024 Basic metabolic 2000 panel - Serum or Plasma Basic Metabolic Panel Lab STAT Severe aortic valve stenosis Expected: 01/18/2023, Expires: 01/14/2024 [employer] Phone: Comment on above: Expected: 01/18/2023, Expires: 4 Start: 12-17-2022 End: 12-10-2023 Basic metabolic 2000 panel - Serum or Plasma Basic Metabolic Panel Lab Routine Severe aortic valve stenosis Expected: 12/17/2022, Expires: 12/10/2023 [employer] Phone: Comment on above: Expected: 12/17/2022, Expires: 4 Start: 12-17-2022 End: 12-10-2023 Hemoglobin and Hematocrit Hemoglobin and Hematocrit Lab Routine Severe aortic valve stenosis Expected: 12/17/2022, Expires: 12/10/2023 [employer] Phone: Comment on above: Expected: 12/17/2022, Expires: Start: 09-28-2022 Annual Wellness Visit (AWV) Annual Wellness Visit (AWV) [employer] Start: 07-16-2021 Influenza vaccination Flu vaccine (Season Ended) [employer] Phone: Start: 04-01-2021 COVID-19 Vaccine (3 - Booster for Pfizer series) COVID-19 Vaccine (3 - Booster for Pfizer series) [employer] Start: 03-04-2021 COVID-19 Vaccine (3 - Pfizer risk series) COVID-19 Vaccine (3 - Pfizer risk series) [employer] Start: 1996 Shingles vaccine (1 of 2) Shingles vaccine (1 of 2) [employer] Start: 1965 Administration of varicella zoster vaccine Zoster (Shingles) Vaccine (1 of 2) [employer] Start: 1965 DTaP,Tdap and Td Vaccines (1 - Tdap) DTaP,Tdap and Td Vaccines (1 - Tdap) [employer] Start: 1965 DTaP/Tdap/Td vaccine (1 - Tdap) DTaP/Tdap/Td vaccine (1 - Tdap) [facility] [employer] Start: 1964 Hepatitis C screening Hepatitis C screen [facility] [employer] Start: 1962 COVID-19 Vaccine (1) COVID-19 Vaccine (1) [employer] Phone: Start: 1958 Depression Screen Depression Screen [employer] Start: 1946 Creatinine measurement Creatinine monitoring [employer] Phone: Start: 1946 Potassium monitoring Potassium monitoring [employer] Phone: End: 02-08-2025 Bacteria identified in Urine by Culture Urine culture (clean catch) Microbiology Routine Acute cystitis without hematuria 1 Occurrences starting 02/09/2024 until 02/08/2025 Known Phone: Comment on above: 1 Occurrences starting 02/09/2024 until 02/08/2025 End: 12-07-2022 Blood Bank Specimen [employer] Phone: Comment on above: Once for 1 Occurrences starting 12/07/19 until 12/07/2022 End: 11-25-2024 Cancer antigen 15-3 Cancer antigen 15-3 Lab Routine 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 female breast, unspecified estrogen receptor status ([facility]) every 3 months for 50 Occurrences starting 11/25/2023 until 11/25/2024 [employer] Comment on above: every 3 months for 50 Occurrences starti ng 11/25/2023 until 11/25/2024 End: 11-25-2024 Cancer antigen 27-29 Cancer antigen 27-29 Lab Routine 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 female breast, unspecified estrogen receptor status ([facility]) every 3 months for 50 Occurrences starting 11/25/2023 until 11/25/2024 [employer] Comment on above: every 3 months for 50 Occurrences starti ng 11/25/2023 until 11/25/2024 End: 11-24-2022 Catheterization and angiography procedure details panel Cardiac Catheterization Cardiac Cath Routine One Time for 1 Occurrences starting 11/24/2022 until 11/24/2022 [employer] Phone: Comment on above: One Time for 1 Occurrences starting 11/15 until 11/24/2022 End: 12-07-2022 Catheterization and angiography procedure details panel Cardiac Catheterization Cardiac Cath Routine One Time for 1 Occurrences starting 12/07/2022 until 12/07/2022 [employer] Phone: Comment on above: One Time for 1 Occurrences starting 11/16 until 12/07/2022 End: 11-25-2024 CBC W Auto Differential panel - Blood CBC with auto diff Lab Routine 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 female breast, unspecified estrogen receptor status (CMS-HCC) every 3 months for 50 Occurrences starting 11/25/2023 until 11/25/2024 [employer] Work Phone: Comment on above: every 3 months for 50 Occurrences starti ng 11/25/2023 until 11/25/2024 End: 11-25-2024 Comprehensive metabolic 2000 panel - Serum or Plasma Comprehensive metabolic panel Lab Routine 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 female breast, unspecified estrogen receptor status (CMS-HCC) every 3 months for 50 Occurrences starting 11/25/2023 until 11/25/2024 [employer] Comment on above: every 3 months for 50 Occurrences starti ng 11/25/2023 until 11/25/2024 End: 01-13-2023 CT CARDIAC W C STC MORP CARD ONLY [employer] Phone: Comment on above: 1 Occurrences starting 01/13/2023 until 01/13/2023 End: 12-07-2022 EKG 12 lead EKG 12 lead ECG Routine One Time for 1 Occurrences starting 12/07/2022 until 12/07/2022 [employer] Phone: Comment on above: One Time for 1 Occurrences starting 11/16 until 12/07/2022 Glucose [Mass/volume ] in Serum or Plasma POCT glucose Point of Care Testing Routine 4X Daily (AC & HS) until discontinued starting 12/07/2022 [employer] Phone: Comment on above: 4X Daily (AC & HS) until discontinued st arting 12/07/2022 End: 12-10-2022 Hemoglobin and Hematocrit Hemoglobin and Hematocrit Lab STAT Post Transfusion Post Transfusion Post Transfustion for 1 Occurrences starting 12/09/2022 until 12/10/2022 [employer] Phone: Comment on above: Post Transfusion Post Transfusion Post T ransfustion for 1 Occurrences starting 12/09/2022 until 12/10/2022 Oxygen therapy [Mini mum Data Set] Initiate Oxygen Therapy Protocol Respiratory Care Routine As Needed until discontinued starting 11/24/2022 [employer] Phone: Comment on above: As Needed until discontinued starting Oxygen therapy [Mini mum Data Set] Initiate Oxygen Therapy Protocol Respiratory Care Routine As Needed until discontinued starting 12/07/2022 [employer] Phone: Comment on above: As Needed until discontinued starting Oxygen therapy [Mini mum Data Set] Initiate Oxygen Therapy Protocol Respiratory Care Routine As Needed until discontinued starting 12/07/2022 [employer] Comment on above: As Needed until discontinued starting End: 11-24-2022 POC CHEM8 INCLUDES CALC. ANION GAP POC CHEM8 INCLUDES CALC. ANION GAP Point of Care Testing STAT One Time for 1 Occurrences starting 11/24/2022 until 11/24/2022 [employer] Phone: Comment on above: One Time for 1 Occurrences starting 11/15 until 11/24/2022 End: 12-07-2022 POC CHEM8 INCLUDES CALC. ANION GAP POC CHEM8 INCLUDES CALC. ANION GAP Point of Care Testing STAT One Time for 1 Occurrences starting 12/07/2022 until 12/07/2022 [employer] Phone: Comment on above: One Time for 1 Occurrences starting 11/16 until 12/07/2022 End: 12-07-2022 PREPARE RBC (CROSSMATCH), 1 Units PREPARE RBC (CROSSMATCH), 1 Units Blood Bank STAT Once for 1 Occurrences starting 12/07/2022 until 12/07/2022 [employer] Phone: Comment on above: Once for 1 Occurrences starting 12/07/19 until 12/07/2022 End: 12-08-2022 PREPARE RBC (CROSSMATCH), 1 Units PREPARE RBC (CROSSMATCH), 1 Units Blood Bank Routine Once for 1 Occurrences starting 12/08/2022 until 12/08/2022 [employer] Work Phone: Comment on above: Once for 1 Occurrences starting 12/08/19 until 12/08/2022 End: 12-09-2022 PREPARE RBC (CROSSMATCH), 1 Units PREPARE RBC (CROSSMATCH), 1 Units Blood Bank Routine Once for 1 Occurrences starting 12/09/2022 until 12/09/2022 [employer] Phone: Comment on above: Once for 1 Occurrences starting 12/09/19 until 12/09/2022 End: 12-08-2022 PREVIOUS SPECIMEN [employer] Phone: Comment on above: Once for 1 Occurrences starting 12/08/19 until 12/08/2022 Immunizations Immunization Date Immunization Notes Care Provider [facility] 08-28-2024 Seasonal trivalent influenza vaccine, adjuvanted, preservative free Pam Ley NURSING ATTENDANT-TOOL AND [employer]TER GR[employer]ER Work Phone: [facility] 08-28-2024 Immunization, In Clinic,; Translations: [Drug or medicament (substance)] Pam Ley NURSING ATTENDANT-[employer] AND [employer]ER Work Phone: [facility] 08-10-2023 Influenza Vaccine, Quadrivalent, Adjuvanted Rambo Muñoz MD Work Phone: [facility] 09-26-2023 influenza virus vacc ine, unspecified formulation Delisa Torres RN [facility] 08-06-2022 Influenza Vaccine, Quadrivalent, Adjuvanted Rambo Muñoz MD Work Phone: [facility] 08-27-2021 influenza, high dose seasonal, preservative-free Rambo Muñoz MD Work Phone: [facility] 05-28-2021 pneumococcal conjuga te vaccine, 13 valent Rambo Muñoz MD Work Phone: [facility] 02-04-2021 COVID-19, mRNA, LNP- S, PF, 30mcg/0.3mL Dose Rambo Muñoz MD Work Phone: [facility] 01-07-2021 COVID-19, mRNA, LNP- S, PF, 30mcg/0.3mL Dose Rambo Muñoz MD Work Phone: [facility] 11-25-2020 influenza, injectabl e, quadrivalent, preservative free Rambo Muñoz MD Work Phone: [facility] 08-30-2020 Influenza, High-dose , Quadrivalent Rambo Muñoz MD Work Phone: [facility] 09-14-2019 influenza, injectabl e, quadrivalent, contains preservative Rambo Muñoz MD Work Phone: [facility] 09-11-2019 influenza, injectabl e, quadrivalent, preservative free Rambo Muñoz MD Work Phone: [facility] 08-31-2018 influenza, injectabl e, quadrivalent, preservative free Rambo Muñoz MD Work Phone: [facility] 09-07-2017 influenza, injectabl e, quadrivalent, preservative free Rambo Muñoz MD Work Phone: [facility] 07-10-2015 pneumococcal polysaccharide vaccine, 23 valent Rambo Muñoz MD Work Phone: [facility] Payers Date Payer Category Payer Medicare ANTHEM MEDICARE [facility] [id number] 2022-Present [phone] [address] [place] [address] [id number] 2022 Medicare HMO ANTH MEDICARE [id number] 2022 Medicare [id number] 2022 Medicaid [id number]. [id number] 2019 Medicare [id number] [id number]. [id number] 2017 Medicaid [id number] 2017 Unknown [id number] 2011 Medicare [id number] 1959 Medicaid [id number] 1946 Unknown [id number] 2.16.840.1.747938.3.579.2.593 1946 Unknown [id number] 2.16.840.1.219095.3.579.2.647 1946 Unknown [id number] 2.16.840.1.368710.3.579.2.175 1946 Unknown [id number] 2.16.840.1.975199.3.579.2.175 1946 Unknown [id number] 2.16.840.1.283890.3.579.2.175 1946 Unknown [id number] 2.16.840.1.747624.3.579.2.175 1946 Unknown [id number] 2.16.840.1.561217.3.579.2.175 1946 Unknown [id number] 2.16.840.1.325468.3.579.2.175 1946 Unknown [id number] 2.16.840.1.391011.3.579.2.175 1946 Unknown [id number] 2.16.840.1.860809.3.579.2.175 1946 Unknown [id number] 2.16.840.1.148990.3.579.2.1285 1946 Unknown [id number] 2.16.840.1.004197.3.579.2.1285 1946 Unknown [id number] 2.16.840.1.059568.3.579.2.1285 1946 Unknown [id number] 2.16.840.1.891555.3.579.2.1285 1946 Unknown [id number] 2.16.840.1.720319.3.579.2.1285 1946 Unknown [id number] 2.16.840.1.843018.3.579.2.1285 1946 Unknown [id number] 2.16.840.1.691307.3.579.2.1285 1946 Unknown [id number] 2.16.840.1.700691.3.579.2.1285 1946 Unknown [id number] 2.16.840.1.595004.3.579.2.1285 1946 Unknown [id number] 2.16.840.1.013945.3.579.2.1285 1946 Unknown [id number] 2.16.840.1.745487.3.579.2.1285 1946 Unknown [id number] 2.16.840.1.738070.3.579.2.1285 1946 Unknown [id number] 2.16.840.1.525492.3.579.2.1285 1946 Unknown [id number] 2.16.840.1.195804.3.579.2.1285 1946 Unknown [id number] 2.16.840.1.593332.3.579.2.1285 1946 Unknown [id number] 2.16.840.1.580250.3.579.2.1285 1946 Unknown [id number] 2.16.840.1.969981.3.579.2.1285 1946 Unknown [id number] 2.16.840.1.197476.3.579.2.1285 1946 Unknown [id number] 2.16.840.1.642181.3.579.2.1285 1946 Unknown [id number] 2.16.840.1.487898.3.579.2.1285 1946 Unknown [id number] 2.16.840.1.106830.3.579.2.1285 1946 Unknown [id number] 2.16.840.1.525443.3.579.2.1285 1946 Unknown [id number] 2.16.840.1.388483.3.579.2.1285 1946 Unknown [id number] 2.16.840.1.166213.3.579.2.1285 1946 Unknown [id number] 2.16.840.1.787122.3.579.2.1285 1946 Unknown [id number] 2.16.840.1.731553.3.579.2.1286 1946 Unknown [id number] 2.16.840.1.259568.3.579.2.1286 1946 Unknown [id number] 2.16.840.1.764062.3.579.2.1286 Social History Date Type Detail Facility Start: 10-15-2014 End: 10-05-2022 Tobacco smoking status NJIS Never smoker [employer] Start: 10-15-2014 End: 08-28-2024 Alcohol intake Current non-drinker of alcohol (finding) [employer] Phone: Start: 10-02-2014 Alcohol Comment occaisional [employer] Phone: Start: 1945 Sex Assigned At Not on file [employer] Phone: Start: 11-14-2022 End: 12-07-2022 Exposure to SARS-CoV-2 (event) Not sure [facility] [employer] Start: 10-05-2022 Tobacco use and exposure Smokeless [facility] Start: 10-05-2022 End: 08-23-2024 History of Social function [facility] Start: 10-05-2022 End: 08-23-2024 Social connection and isolation panel [facility] Do you belong to any clubs or organizations such as episcopalian groups, unions, fraternal or athletic groups, or school groups? Yes [facility] Are you now , , , , never or living with a partner? Never [facility] How often to you hav e a drink containing alcohol? Never [facility] How many standard dr inks containing alcohol do you have on a typical day? Patient does not drink [facility] Do you feel stress - tense, restless, nervous, or anxious, or unable to sleep at night because your mind is troubled all the time - these days [OSQ] Not at all [facility] Start: 03-21-2020 Gender identity Identifies as female gender (finding) [facility] Start: 10-05-2022 Sexual orientation Heterosexual (finding) [facility] Has the electric, ga s, oil, or water company threatened to shut off services in your home in past 12Mo No [facility] Start: 06-20-2015 Sex Female (finding) [facility] Medical Equipment Procedure Code Equipment Code Equipment Origin al Text Equipment Identifier Dates Valve Aor Evolut Fx 26mm - [id number] - [id number] Start: 08-17-2023 [id number] Start: 10-11-2020 USE FOUR TIMES A DAY. ICD 10 E11.29 [id number] Start: 08-31-2022 4 applicators by miscellaneous route See Admin Instructions. 4 times daily injection [id number] Start: 04-21-2021 Goals Date Patient Goal Desired [...] & Type Note Facility 09-06-2024 Miscellaneous Notes [facility] called to see if you could send in nystatin ( 60g bottle) for this pt , pt has excoriated abdomen folds ,flacky red fungal odor , she did educate pt , also stated the right side is worse than the left side done documented in this encounter [facility] 09-06-2024 Telephone encounter Note [facility] called to see if you could send in nystatin ( 60g bottle) for this pt , pt has excoriated abdomen folds ,flacky red fungal odor , she did educate pt , also stated the right side is worse than the left side [facility] 09-06-2024 Telephone encounter Note done [facility] 08-28-2024 History of Present illness Narrative Transition [...] Discharge Specialty: Endocrine Name of Discharging Facility: [facility] Date of Facility Discharge: Admitted: 08/23/24 Discharged: 08/24/24 Date of Interactive Contact and Name of Biomedical Photographer: 08/25/24 Spoke with patient's daughterIleana Medication Review Completed: Yes CHANGE how you take: insulin detemir U-100 (LEVEMIR) Medication Reconciliation Questions/Concerns: *Follow Up Appointments with Providers: Primary: Pam Ley, NURSING ATTENDANT-TOOL AND CUTTER GRINDER: 08/28/24 Specialty: Endocrinology (Christiano): TBVicki Review of Pending Lab/Diagnostic Tests and Plan [...] most recent facility discharge document. Discharged from [facility] on 08-24-24 Patient is accompanied by [...] it was very low. [facility]. Type 2 DM is managed by endocrine, Zainab Hernandez. Influenza vaccine administered today Follow up 5 months Sooner if needed Pam KAIDEN Martini 08/28/24 0902 documented in this encounter [facility] 08-16-2024 Miscellaneous Notes Do you still need a TCM on this patient? She currently has COVID-19. I am going to say not at this time documented in this encounter [facility] 08-16-2024 Telephone encounter Note Do you still need a TCM on this patient? [facility] 08-16-2024 Telephone encounter Note She currently has COVID-19. I am going to say not at this time [facility] 08-16-2024 Miscellaneous Notes Transition of Care (*required) *Additional Questions/Concerns Requiring PCP Follow-Up: -Patient does not have CELI appointment scheduled This documentation is being used for Transition of Care purposes: Yes Goal: Patient will demonstrate a safe transition from hospital to home Diagnosis on Discharge: DISCHARGE DIAGNOSES Principal Problem: Acute respiratory failure with hypoxia and hypercapnia (CMS-HCC) Active Problems: PVD (peripheral vascular disease) (CMS-HCC) Mixed diabetic hyperlipidemia associated with type 2 diabetes mellitus (CMS-HCC) Obstructive sleep apnea syndrome Essential (primary) hypertension Acute cystitis without hematuria Stage 3b chronic kidney disease (CMS-HCC) Sepsis without acute organ dysfunction (CMS-HCC) Iron deficiency anemia secondary to inadequate dietary iron intake COVID-19 virus infection Discharge Specialty: Other *Name of Discharging Facility: [facility] Date of Facility Discharge: Admission 08/12/24 Discharge 08/14/24 Date of Interactive Contact and Name of Biomedical Photographer: 08/16/24 10:22 am Spoke to patients molina Tejeda *Medication Review Completed: No START taking: amoxicillin-pot clavulanate (AUGMENTIN) predniSONE (DELTASONE) Medication Reconciliation Questions/Concerns: -Reviewed discharge changes to medications -Declines medications review -Patients daughter picked up medications and patient started taking as prescribed -Denies questions or concerns *Follow Up Appointments with Providers: Primary: Pam Ley APRN-TOOL AND CUTTER GRINDER Specialty: Specialty: Specialty: Review of Pending Lab/Diagnostic [...] on this one. documented in this encounter [facility] 08-16-2024 Telephone encounter Note Transition of Care (*required) *Additional Questions/Concerns Requiring PCP Follow-Up: -Patient does not have CELI appointment scheduled This documentation is being used for Transition of Care purposes: Yes Goal: Patient will demonstrate a safe transition from hospital to home Diagnosis on Discharge: DISCHARGE DIAGNOSES Principal Problem: Acute respiratory failure with hypoxia and hypercapnia ([facility]) Active Problems: PVD (peripheral vascular disease) [facility] Mixed diabetic hyperlipidemia associated with type 2 diabetes mellitus ([facility]) Obstructive sleep apnea syndrome Essential (primary) hypertension Acute cystitis without hematuria Stage 3b chronic kidney disease ([facility]) Sepsis without acute organ dysfunction ([facility]) Iron deficiency anemia secondary to inadequate dietary iron intake COVID-19 virus infection Discharge Specialty: Other *Name of Discharging Facility: [facility] Date of Facility Discharge: Admission 08/12/24 Discharge 08/14/24 Date of Interactive Contact and Name of Biomedical Photographer: 08/16/24 10:22 am Spoke to patients molina Tejeda *Medication Review Completed: No START taking: amoxicillin-pot clavulanate (AUGMENTIN) predniSONE (DELTASONE) Medication Reconciliation Questions/Concerns: -Reviewed discharge changes to medications -Declines medications review -Patients daughter picked up medications and patient started taking as prescribed -Denies questions or concerns *Follow Up Appointments with Providers: Primary: Pam Ley APRN-TOOL AND CUTTER GRINDER Specialty: Specialty: Specialty: Review of Pending Lab/Diagnostic [...] Other Services Utilized/Needed by the Patient: [facility] 08-16-2024 Telephone encounter Note Patient currently has COVID so she will pass on this one. [facility] 06-25-2024 Note XR CHEST 1 VW Procedure: Chest x-ray performed Number of views:AP portable erect History:Hypoglycemia Comparison:06/13/2024 Findings: The heart and mediastinal silhouette are stable. There are no focal consolidations or effusions. The pulmonary vasculature is normal. There is no pneumothorax. Impression: No acute process. Finalized by Pina Fatima DO on 06/25/2024 10:40 PM [facility] 03-16-2024 Note SUBJECTIVE: Chief complaint: NPH with INDUSTRIAL ENGINEERING MANAGER shunt, recent stroke. History of present illness: Was hospitalized at outside hospital few days ago when she had experienced abrupt onset of dysarthria as well as facial droop. Was seen at [facility]. Providers there had requested an MRI of the brain and were told by [facility] neurosurgery that she could have an MRI [...] medication for this. Had CT brain and INDUSTRIAL ENGINEERING MANAGER shunt series completed today. Review of systems: [...] cefuroxime cholecalciferol (vitamin D3) clopidogrel Dexcom G6 Senior Business Development Analyst [facility] [place] Dexcom G6 Transmitter device ferrous sulfate FreeStyle Kartik 14 Day [place] [facility] [place] FreeStyle Kartik 14 Day Sensor kit furosemide gabapentin hydroCHLOROthiazide insulin lispro lancets [facility] [place] [place] letrozole Levemir FlexPen insulin pen melatonin capsule metoprolol tartrate miscellaneous medical supply [facility] [place] mupirocin ONETOUCH ULTRA BLUE TEST STRIP [place] OneTouch Ultra Test strip oxybutynin pantoprazole pen [...] sugar diagnostic (ONETOUCH ULTRA BLUE TEST STRIP [place]), OneTouch Ultra Blue Test Strip, Disp: , [...] the morning., Disp: , Rfl: Dexcom G6 Senior Business Development Analyst misc, See administration instructions., Disp: , Rfl: Dexcom G6 Transmitter device, CHANGE EVRY 90 DAYS., Disp: , Rfl: ferrous sulfate 325 (65 Fe) MG EC tablet, Take 325 mg by mouth., Disp: , Rfl: FreeStyle Kartik reader (FreeStyle Kartik 14 Day [place]) misc, FreeStyle Kartik 14 Day [place], Disp: , Rfl: FreeStyle Kartik sensor system (FreeStyle Kartik 14 Day Sensor) kit, FreeStyle Kartik 14 Day Sensor kit, Disp: , Rfl: furosemide (Lasix) 20 mg tablet, Take 20 mg by mouth in the morning., Disp: , Rfl: gabapentin (Neurontin) 300 mg capsule, TAKE 1 CAPSULE (300 MG TOTAL) BY MOUTH IN T (more content not included)... [facility] 02-09-2024 History of Present illness Narrative Images from the original note were not included. [address] [facility] [address] SUBJECTIVE: Patient ID: Cuca Goodwin is a 78 y.o. female. Chief Complaint Patient presents with incontinence Accompanied by daughter today Urine is cloudy, increased incontinence. Concerns for reoccurrence of UTI. Patient was hospitalized at [facility] in September 2023 for UTI. Uses [...] 08/14/2022 Performed by Arnulfo Gonzalez MD at [facility] INJECTION BLOCK EPIDURAL CAUDAL STEROID N/A 06/06/2021 Performed by Arnulfo Gonzalez MD at [facility] INJECTION BLOCK EPIDURAL CAUDAL STEROID N/A 04/25/2021 Performed by Arnulfo Gonzalez MD at [facility] INJECTION CAUDAL EPIDURAL WITH CATHETER, STEROID N/A 05/03/2020 Performed by Arnulfo Gonzalez MD at [facility] INJECTION CAUDAL EPIDURAL WITH CATHETER, STEROID N/A 11/24/2019 Performed by Arnulfo Gonzalez MD at [facility] INJECTION CAUDAL EPIDURAL WITH CATHETER, STEROID N/A 04/21/2019 Performed by Arnulfo Gonzalez MD at [facility] MEDIAL BRANCH NERVE BLOCK Bilateral L 4/5, 5/1 Bilateral 08/18/2019 Performed by Arnulfo Gonzalez MD at [facility] INJECTION MEDIAL BRANCH NERVE BLOCK Bilateral L 4/5, 5/1 Bilateral 06/23/2019 Performed by Arnulfo Gonzalez MD at [facility] INJECTION STEROID EPI 1 WITH SEDATION Right L 4, 5 NR Right 03/17/2019 Performed by Arnulfo Gonzalez MD at [facility] INJECTION STEROID EPI 1 WITH SEDATION: right L45 nroot Right 08/15/2018 Performed by Arnulfo Gonzalez MD at [facility] LEFT L4, AND 5 NERVE ROOT INJECTION 2 OF 2 Left 07/22/2018 Performed by Arnulfo Gonzalez MD at [facility] LEFT L4, AND L5 NERVE ROOT 1 OF 2 Left 07/04/2018 Performed by Arnulfo Gonzalez MD at [facility] PERCUTANEOUS CORONARY INTERVENTION SHUNT INSERTION TONSILLECTOMY AGE 4 Transcutaneous aortic valve replacement/Transfemoral/Kwan N/A 08/17/2023 Performed by Chava Norris MD at [facility] Valvuloplasty aortic N/A 06/03/2023 Performed by Chava Norris MD at [facility] Past Medical History: Diagnosis Date Anemia Arthritis Asthma very mild, no inhaler use Cataract Dental disease Depression Diabetes mellitus ([facility]) Diabetes mellitus type 2, controlled ([facility]) Encephalitis Foot fracture, left GERD (gastroesophageal reflux disease) Heart murmur HLD (hyperlipidemia) Hypertension Incontinence Injury of back Insulin dependent diabetes mellitus Kidney failure STAGE 4 Lumbar spondylolysis Murmur Obesity CHELSEA (obstructive sleep apnea) no machine Peptic ulceration Peripheral vascular disease ([facility]) Shortness of breath TIA (transient ischemic attack) [...] Werner 02/09/24 1420 documented in this encounter [facility] [employer] 12-15-2023 History of Present illness Narrative Images from the original note were not included. [address] [place] [address] SUBJECTIVE: Patient ID: Cuca Goodwin is a [...] 01/29/2021 Performed by Jv Briones MD at [facility] INJECTION BLOCK EPIDURAL CAUDAL STEROID N/A 08/14/2022 Performed by Arnulfo Gonzalez MD at [facility] INJECTION BLOCK EPIDURAL CAUDAL STEROID N/A 06/06/2021 Performed by Arnulfo Gonzalez MD at [facility] INJECTION BLOCK EPIDURAL CAUDAL STEROID N/A 04/25/2021 Performed by Arnulfo Gonzalez MD at [facility] INJECTION CAUDAL EPIDURAL WITH CATHETER, STEROID N/A 05/03/2020 Performed by Arnulfo Gonzalez MD at [facility] INJECTION CAUDAL EPIDURAL WITH CATHETER, STEROID N/A 11/24/2019 Performed by Arnulfo Gonzalez MD at [facility] INJECTION CAUDAL EPIDURAL WITH CATHETER, STEROID N/A 04/21/2019 Performed by Arnulfo Gonzalez MD at [facility] INJECTION MEDIAL BRANCH NERVE BLOCK Bilateral L 4/5, 5/1 Bilateral 08/18/2019 Performed by Arnulfo Gonzalez MD at [facility] INJECTION MEDIAL BRANCH NERVE BLOCK Bilateral L 4/5, 5/1 Bilateral 06/23/2019 Performed by Arnulfo Gonzalez MD at [facility] INJECTION STEROID EPI 1 WITH SEDATION Right L 4, 5 NR Right 03/17/2019 Performed by Arnulfo Gonzalez MD at [facility] INJECTION STEROID EPI 1 WITH SEDATION: right L45 nroot Right 08/15/2018 Performed by Arnulfo Gonzalez MD at [facility] LEFT L4, AND 5 NERVE ROOT INJECTION 2 OF 2 Left 07/22/2018 Performed by Arnulfo Gonzalez MD at [facility] LEFT L4, AND L5 NERVE ROOT 1 OF 2 Left 07/04/2018 Performed by Arnulfo Gonzalez MD at [facility] PERCUTANEOUS CORONARY INTERVENTION SHUNT INSERTION TONSILLECTOMY AGE 4 Transcutaneous aortic valve replacement/Transfemoral/Kwan N/A 08/17/2023 Performed by Chava Norris MD at [facility] Valvuloplasty aortic N/A 06/03/2023 Performed by Chava Norris MD at [facility] Past Medical History: Diagnosis Date Anemia Arthritis Asthma very mild, no inhaler use Cataract Dental disease Depression Diabetes mellitus ([facility]) Diabetes mellitus type 2, controlled ([facility]) Encephalitis Foot fracture, left GERD (gastroesophageal reflux disease) Heart murmur HLD (hyperlipidemia) Hypertension Incontinence Injury of back Insulin dependent diabetes mellitus Kidney failure STAGE 4 Lumbar spondylolysis Murmur Obesity CHELSEA (obstructive sleep apnea) no machine Peptic ulceration Peripheral vascular disease ([facility]) Shortness of breath TIA (transient ischemic attack) [...] needed (cough and congestion). Normal pressure hydrocephalus ([facility]) Moderate episode of recurrent major depressive disorder ([facility]) PVD (peripheral vascular disease) ([facility]) 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 mellitus ([facility]) - gabapentin (NEURONTIN) 300 mg capsule; Take 1 capsule (300 mg total) by mouth in the morning and 1 capsule (300 mg total) before bedtime. Stage 3b chronic kidney disease ([facility]) Major depressive disorder in partial remission, unspecified whether recurrent ([facility]) - sertraline (ZOLOFT) 100 mg tablet; Take [...] stage 3b chronic kidney disease and hypertension ([facility]) - SITagliptin phosphate (JANUVIA) 50 [...] for sore throat. Tylenol as needed per inspector outside production guidelines for fever or pain. Body mass [...] procedures Follow-up: 5 months KAIDEN Werner 12/15/23 8675 documented in this encounter [facility] 11-25-2023 History of Present illness Narrative Images from the original note were not included. [facility] 11/25/23 Cuca Goodwin is a 78 y.o. year old female seen today in the oncology clinic. Chief Complaint Patient presents with Follow-up History of Present Illness: Mrs. Goodwin is a 78 y.o. female with history of aortic valve stenosis, she had PCI earlier in the year at [facility] for coronary disease. during the cardiac workup [...] mammary carcinoma, grade 2, ER strongly positive DC moderately positive and HER2 negative. There was [...] use Cataract Dental disease Depression Diabetes mellitus ([facility]) Diabetes mellitus type 2, controlled ([facility]) Encephalitis Foot fracture, left GERD (gastroesophageal reflux disease) Heart murmur HLD (hyperlipidemia) Hypertension Incontinence Injury of back Insulin dependent diabetes mellitus Kidney failure STAGE 4 Lumbar spondylolysis Murmur Obesity CHELSEA (obstructive sleep apnea) no machine Peptic ulceration Peripheral vascular disease ([facility]) Shortness of breath TIA (transient ischemic attack) Upper respiratory infection UTI (urinary tract infection) Visual impairment Wears dentures Past Surgical History: Procedure Laterality Date BREAST BIOPSY Right 03/01/2023 ULT BIOPSY CATARACT EXTRACTION SECTION SECTION 03/14/1974 EGD N/A 10/17/2019 Performed by Sang Bell DO at [facility] HYSTEROSCOPY DILATION CURETTAGE MYOSURE N/A 01/29/2021 Performed by Jv Briones MD at [facility] INJECTION BLOCK EPIDURAL CAUDAL STEROID N/A 08/14/2022 Performed by Arnulfo Gonzalez MD at [facility] INJECTION BLOCK EPIDURAL CAUDAL STEROID N/A 06/06/2021 Performed by Arnulfo Gonzalez MD at [facility] INJECTION BLOCK EPIDURAL CAUDAL STEROID N/A 04/25/2021 Performed by Arnulfo Gonzalez MD at [facility] INJECTION CAUDAL EPIDURAL WITH CATHETER, STEROID N/A 05/03/2020 Performed by Arnulfo Gonzalez MD at [facility] INJECTION CAUDAL EPIDURAL WITH CATHETER, STEROID N/A 11/24/2019 Performed by Arnulfo Gonzalez MD at [facility] INJECTION CAUDAL EPIDURAL WITH CATHETER, STEROID N/A 04/21/2019 Performed by Arnulfo Gonzalez MD at [facility] MEDIAL BRANCH NERVE BLOCK Bilateral L 4/5, 5/1 Bilateral 08/18/2019 Performed by Arnulfo Gonzalez MD at [facility] INJECTION MEDIAL BRANCH NERVE BLOCK Bilateral L 4/5, 5/1 Bilateral 06/23/2019 Performed by Arnulfo Gonzalez MD at [facility] INJECTION STEROID EPI 1 WITH SEDATION Right L 4, 5 NR Right 03/17/2019 Performed by Arnulfo Gonzalez MD at [facility] INJECTION STEROID EPI 1 WITH SEDATION: right L45 nroot Right 08/15/2018 Performed by Arnulfo Gonzalez MD at [facility] LEFT L4, AND 5 NERVE ROOT INJECTION 2 OF 2 Left 07/22/2018 Performed by Arnulfo Gonzalez MD at [facility] LEFT L4, AND L5 NERVE ROOT 1 OF 2 Left 07/04/2018 Performed by Arnulfo Gonzalez MD at [facility] PERCUTANEOUS CORONARY INTERVENTION SHUNT INSERTION TONSILLECTOMY AGE 4 Transcutaneous aortic valve replacement/Transfemoral/Kwan N/A 08/17/2023 Performed by Chava Norris MD at [facility] Valvuloplasty aortic N/A 06/03/2023 Performed by Chava Norris MD at [facility] Family History Problem [...] min Stress: No Stress Concern Present (10/05/2022) [employer] - Occupational Stress Questionnaire Feeling of Stress : Not at all Social Connections: Moderately Isolated (10/05/2022) Social Connection and Isolation Panel [NHANES] Frequency of Communication with Friends and Family: Never Frequency of Social Gatherings with Friends and Family: Never Attends Jewish Services: More than 4 times per year [...] nephropathy, without long-term current use of insulin ([facility]) Signed by: KAIDEN Santana Monitor blood sugars four times daily and as needed clopidogreL 75 mg tablet Refills: 0 Dose: 75 mg Commonly known as: PLAVIX COMFORT EZ PEN NEEDLES 32 gauge x 5/16 needle Quantity: 200 each Refills: 6 For diagnoses: Type 2 diabetes mellitus with stage 4 chronic kidney disease, with long-term current use of insulin ([facility]) Dose: 4 applicator Signed by: KAIDEN Santana 4 applicators, miscellaneous, See admin instructions, 4 times daily injection Generic drug: pen needle, diabetic DEXCOM G6 PUMP TESTER misc Refills: 0 Dose: 1 Device Generic drug: blood-glucose meter,continuous DEXCOM G6 SENSOR device Refills: 0 Generic drug: blood-glucose sensor gabapentin 300 mg capsule Quantity: 180 capsule Refills: 1 Doctor's comments: 90 Day Supply. 1 refill For diagnoses: 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 mellitus ([facility]) Dose: 300 mg Signed by: KAIDEN Santana 300 mg, oral, 2 times daily Commonly known as: NEURONTIN hydroCHLOROthiazide 25 mg tablet Refills: 0 Dose: 25 mg Commonly known as: HYDRODIURIL insulin lispro 100 unit/mL insulin pen Refills: 0 For diagnoses: Mixed diabetic hyperlipidemia associated with type 2 diabetes mellitus ([facility]) Dose: 2 Units Signed by: RONNA Solis [...] nephropathy, without long-term current use of insulin ([facility]) Signed by: KAIDEN Santana Monitor blood sugars four times daily and as needed Commonly known as: onetouch ultrasoft * ONETOUCH DELICA PLUS LANCET 33 gauge misc Refills: 0 Generic drug: lancets letrozole 2.5 mg chemo tablet Quantity: 90 tablet Refills: 3 For diagnoses: 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 female breast, unspecified estrogen receptor status ([facility]) Dose: 2.5 mg Signed by: Dr. Rambo Muñoz MD 2.5 mg, oral, Daily Commonly known as: FEMARA LEVEMIR FLEXPEN 100 unit/mL (3 mL) insulin pen Quantity: 30 mL Refills: 3 For diagnoses: Controlled type 2 diabetes mellitus with diabetic nephropathy, without long-term current use of insulin ([facility]) Signed by: KAIDEN Santana INJECT 30 UNITS UNDER THE SKIN NIGHTLY Generic drug: insulin detemir U-100 metoprolol succinate XL 25 mg 24 hr tablet Quantity: 90 tablet Refills: 2 For diagnoses: Essential hypertension, Athscl heart disease of [place] coronary artery w/o ang pctrs Dose: 25 [...] disorder in partial remission, unspecified whether recurrent ([facility]) Dose: 100 mg Signed by: KAIDEN Santana 100 mg, oral, Daily Commonly known as: ZOLOFT SITagliptin phosphate 50 mg tablet Quantity: 90 tablet Refills: 1 For diagnoses: Diabetes mellitus type 2, insulin dependent ([facility]), 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 ([facility]) Dose: 50 mg Signed by: KAIDEN Santana 50 mg, oral, Daily Commonly known as: RICO traZODone 100 mg tablet Quantity: 90 tablet [...] to ensure the accuracy of this automated photonics technician, some errors in photonics technician may have occurred. CC: Patient Care Team: KAIDEN Werner as PCP - General (Family Medicine) Simeon Quiles MD (Nephrology) KAIDEN Hsu as Nurse Practitioner (Pulmonary Medicine) Madison Ye MD as Referring Physician (Endocrinology, Diabetes & Metabolism) Rambo Muñoz MD as Consulting Physician (Hematology) PCP:Pam Lye Referring MD: Pam Ley, AP* documented in this encounter [facility] 11-25-2023 Instructions Rambo Muñoz MD - 11/25/2023 2:30 PM EST Pet SCAN 02/2024. F/u in late 02/2024 to review results. Continue femara alone. Labs before appt: CBC, CMP, CA 15-3, CA 27.29. [facility]-23-2023 Note SUBJECTIVE: Chief complaint: INDUSTRIAL ENGINEERING MANAGER shunt adjustment status post 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 History of present illness: Return visit for NPH status post INDUSTRIAL ENGINEERING MANAGER shunt. Had MRI thoracic and lumbar spine done at [facility] last week due to concern for spinal [...] Medications: acetaminophen amLODIPine aspirin atorvastatin blood-glucose meter [facility] cefuroxime cholecalciferol (vitamin D3) clopidogrel Dexcom G6 Sensor device ferrous sulfate FreeStyle Kartik 14 Day [place] [facility] [place] FreeStyle Kartik 14 Day Sensor kit furosemide gabapentin hydroCHLOROthiazide insulin lispro lancets [facility] [place] letrozole Levemir FlexPen insulin pen melatonin capsule metoprolol succinate XL metoprolol tartrate miscellaneous medical supply [facility] [place] mupirocin ONETOUCH ULTRA BLUE TEST STRIP [place] OneTouch Ultra Test strip oxybutynin oxybutynin XL [...] sugar diagnostic (ONETOUCH ULTRA BLUE TEST STRIP [place]), OneTouch Ultra Blue Test Strip, Disp: , Rfl: blood sugar diagnostic (OneTouch Ultra Test) strip, OneTouch Ultra Test strips 1 STRIP BY OTHER ROUTE 4 (FOUR) TIMES A DAY BEFORE MEALS AND NIGHTLY., Disp: , Rfl: blood-glucose meter [facility] [place] [place], OneTouch Ultra2 Meter, Disp: , Rfl: blood-glucose meter [facility] [place], Monitor blood sugars four [...] FreeStyle Kartik reader (FreeStyle Kartik 14 Day [place]) misc, FreeStyle Kartik 14 Day [place], Disp: , Rfl: FreeStyle Kartik sensor system [...] (U-100) Insulin 10 (more content not included)... [facility] 12-11-2022 History of Present illness Narrative Patient discharged home. Discharge instructions were explained and given to the patient, patient verbalized understanding. All belongings were sent with the patient. No signs of acute distress noted, no concerns voiced. Physical Therapy Facility/Department: [address] [place] Physical Therapy Name: Cuca Goodwin [...] 25 Sasha Maldonado PT Physical Therapy Facility/Department: [address] [place] Daily Treatment Note NAME: Cuca [...] from the original note were not included. [employer] Progress Note Date: 12/09/2022 Patient name: Cuca [...] 182 cm. Number of passes: 1. [place] 2.5 x 12 CÉSAR. 1 inflation(s) to [...] stable. Plans for TAVR work-up as OP [employer] [facility]. [phone] Physical Therapy Facility/Department: [address] [facility] Initial Assessment Name: Cuca Goodwin [...] pt repositioned in bed for comfort upon senior copywriter's exit. Subjective Subjective: RN and pt in [...] rollator at baseline) Transfer Assistance: Independent Active Licensing Director: No Mode of Transportation: Friends, Cab Occupation: [...] the original note were not included. [place] Spr[employer] Progress Note Date: 12/08/2022 Patient name: Cuca [...] a max pressure of: 10 graciela. [place] 2.5 x 12 CÉSAR. 1 inflation(s) to [...] 182 cm. Number of passes: 1. [place] 2.5 x 12 CÉSAR. 1 inflation(s) to [...] stable Plans for TAVR work-up as OP [employer] [phone] Docketing Specialist discussed the next step in the TAVR process, an appointment with the cardiothoracic surgeon, with patient and daughter at bedside in [facility]. Office number given to daughter, she will call to schedule in the next couple days. Docketing Specialist's contact number also given. Patient declined AM [...] stretcher. Right groin assessed by Joelle and senior copywriter. Groin remains soft. Dr Jin at bedside [...] Manual pressure held Manual pressure held per senior copywriter for [address] Martinez at bedside to assess. Order for POC H & H received. Hemaglobin 6.9. Stat lab draw ordered. Dr Martinez at bedside to assess. Order for LLE vascualr scan received. 1 Patient admitted, consent signed and questions answered. Patient ready for procedure. Call light to reach with side rails up 2 of 2. Bilateral groin areas clipped with senior copywriter and Maggi estrada present. Daughter Ismael at [...] leg straight. documented in this encounter [employer] Work Phone: 12-07-2022 Note [facility] Vascular Lower Extremities Arterial Duplex Procedure Patient Name CHRISTA Date of Study 12/07/2022 [facility] Date of 1945 Gender Female Age 77 year(s) Race Room Number 0501 Height: 65 inch, 165.1 cm Corporate ID # [id number] Weight: 208 pounds, 94.3 kg Patient BSA: 2.01 m^2 BMI: 34.61 kg/m^2 MR # [id number] Airfreight Operations Agent Whit Gan Reji Interpreting Physician Darnell Monique Referring Referring Physician [...] ! ! +---------++-----+-----+------+-- --+------++---+-----+------+----+ ---------+ [facility] 11-24-2022 History of Present illness Narrative Patient admitted, consent signed and questions answered. Patient ready for procedure. Call light to reach with side rails up 2 of 2. Bilateral groin areas clipped with senior copywriter and Jose PIERRE present. Daughter Ileana at bedside with patient. History and physical needs updated. documented in this encounter [employer] Phone: 03-20-2021 Note PROCEDURE: XR FOOT L T MIN 3 VIEWS COMPARISON: None. HISTORY: Pain FINDINGS: BONES:No acute fracture or dislocation. Persistent flexion of the toes limits their evaluation. Mild to moderate degenerative changes with joint space narrowing and marginal osteophyte formation, most significant at the first metatarsophalangeal joint where [id number] endplate is observed SOFT TISSUES:Negative. No visible soft tissue swelling. EFFUSION:None visible. OTHER: Negative. IMPRESSION: Moderate degenerative changes, no acute fracture Electronically authenticated by: GIOVANNY NICOLE Date: 2021-03-20 08:29 [facility] Evaluation note Diagnosis Severe aortic valve stenosis- Primary Aortic valve disorders documented in this encounter [employer] Phone: [email or web address] note* Diagnosis RAIN (acute kidney injury) (HCC)- Primary Acute kidney failure, unspecified documented in this encounter [employer] Phone: [email or web address] note* Diagnosis Severe aortic valve stenosis- Primary [...] kidney disease (HCC) Coronary artery disease involving [place] coronary artery of [place] heart without angina pectoris documented in this encounter [employer] Phone: [email or web address] note* Diagnosis Aortic valve stenosis, etiology of cardiac valve disease unspecified documented in this encounter [employer] Phone: [email or web address] note* Diagnosis Aortic valve stenosis, etiology of cardiac valve disease unspecified documented in this encounter [employer] Phone: [email or web address] note* Diagnosis 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 female breast, unspecified estrogen receptor status (CMS-HCC)- Primary documented in this encounter [facility]* Diagnosis Insomnia, unspecified type documented in this encounter [facility]* Diagnosis Upper respiratory tract infection, unspecified type- Primary Normal pressure hydrocephalus ([facility]) 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 ([facility]) PVD (peripheral vascular disease) ([facility]) Unspecified peripheral vascular disease 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 mellitus ([facility]) Stage 3b chronic kidney disease ([facility]) Major depressive disorder in partial remission, unspecified whether recurrent ([facility]) Essential hypertension Unspecified essential hypertension GERD without esophagitis Esophageal reflux 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 ([facility]) documented in this encounter [facility]* Diagnosis 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 female breast, unspecified estrogen receptor status ([facility]) documented in this encounter [facility]* Diagnosis Acute cystitis without hematuria- Primary Urge incontinence of urine Urge incontinence documented in this encounter [facility]* Diagnosis Hypoglycemia- Primary Hypoglycemia, unspecified Need for influenza vaccination Need for prophylactic vaccination and inoculation against influenza Altered mental status, unspecified altered mental status type documented in this encounter [facility]* Diagnosis Fabby infection of flexural skin- Primary Candidiasis of skin and nails [facility]* Attachments The following attachments cannot be sent through Care Everywhere. * PCI (Percutaneous Coronary Intervention): Post-op (Syrian) [facility] [employer] Work Phone: InstructionsNot on filedocumented in this encounter [facility] SystemInstructions* Attachments The following attachments cannot be sent through Care Everywhere. * Bacterial Upper Respiratory Infection, Adult (Syrian) [facility]* Attachments The following attachments cannot be sent through Care Everywhere. * Urinary Tract Infection Discharge Instructions, Adult (Syrian) documented in [facility] SystemInstructionsNot on file [facility] SystemInstructionsNot on file documented in [facility] SystemInstructionsNot on file documented in this [facility] SystemInst[facility]* Attachments The following attachments cannot be sent through Care Everywhere. * Flu vaccine (Syrian) documented in [facility] SystemInstructionsNot on file documented in this [facility] SystemInstructionsNot on file documented in [facility] Advance Directives No Advanced Directives Records FoundDocuments on File Type Date Recorded Patient Intermodal Owner Operator Truck Driver Expl anation ACP-Advance Directive ACP-Power of Consultant Technology Latest Code Status on File Code Status [...] Documents on File Type Date Recorded Patient Intermodal Owner Operator Truck Driver Expl anation ACP-Advance Directive 12/14/2022 2:27 PM Latest Code Status on File Code Status Date Activated Date Inactivated Comments Full Code 12/07/2022 11:24 AM 12/11/2022 1:10 PM Full Code 11/24/2022 11:19 AM 11/25/2022 2:46 AM Full Code 09/28/2022 4:15 AM 09/30/2022 6:37 PM Full Code 10/15/2014 1:49 PM 10/15/2014 8:39 PM Documents on File Type Date Recorded Patient Intermodal Owner Operator Truck Driver Expl anation ACP-Advance Directive 12/14/2022 2:27 PM Latest Code Status on File Code Status Date Activated Date Inactivated Comments Full Code 12/07/2022 11:24 AM 12/11/2022 1:10 PM Documents on File Type Date Recorded Patient Intermodal Owner Operator Truck Driver Expl anation Durable Power of Consultant Technology 10/21/2022 2:24 PM DNR Physician Order 10/21/2022 2:24 PM Living Will 01/30/2021 12:07 PM Durable Power of Consultant Technology 01/30/2021 12:07 PM Living Will 01/29/2021 6:19 AM Advance Directive 01/29/2021 6:18 AM DNR Physician Order 11/03/2019 1:27 PM Latest Code Status on File Code Status Date Activated Date Inactivated Comments Full Code 03/28/2023 5:07 PM 04/01/2023 3:32 PM Code Status History Code Status Date Activated Date Inactivated Comments DNR Comfort Care Arrest (DNR-CCA) [place] 10/06/2022 8:43 AM 10/06/2022 8:41 PM Full [...] C STC MORP CARD ONLY Namrata Blair, NURSING ATTENDANT - TOOL AND CUTTER GRINDER [address] [place] [address] Referral ID Status Reason Start Date Expiration Date Visits Re quested Visits Authorized [id number] Closed 01/11/2023 04/10/2023 1 1 Specialty Diagnoses / Procedures Referred By Polo tobias Referred To Contact Radiology Diagnoses Aortic valve stenosis, etiology of cardiac valve disease unspecified Procedures CTA CHEST ABDOMEN PELVIS W CONTRAST Namrata Blair, NURSING ATTENDANT - TOOL AND CUTTER GRINDER [address] [place] [address] Referral ID Status Reason Start Date Expiration Date Visits Re quested Visits Authorized [id number] Closed 01/11/2023 04/10/2023 1 1 Additional Source Comments INFORMATION SOURCE (unrecogn ized section and content) DATE CREATED AUTHOR 03/27/2021 [facility] DATE CREATED AUTHOR AUTHOR'S ORGANIZ ATION 04/09/2021 [facility] DATE CREATED AUTHOR AUTHOR'S ORGANIZ ATION 04/06/2022 [facility] DATE CREATED AUTHOR AUTHOR'S ORGANIZ ATION 01/22/2023 [facility] DATE CREATED AUTHOR AUTHOR'S ORGANIZ ATION 02/12/2024 [facility] DATE CREATED AUTHOR AUTHOR'S ORGANIZ ATION 03/20/2024 [facility] DATE CREATED AUTHOR AUTHOR'S ORGANIZ ATION 10/12/2024 [facility] DATE CREATED AUTHOR AUTHOR'S ORGANIZ ATION 10/12/2024 [facility] Reason for Visit (unrecogniz ed section and content) Specialty Diagnoses / Procedures Referred By Polo tobias Referred To Contact [facility] [address] [place] [address] Referral ID Status Reason Start Date Expiration Date Visits Re quested Visits Authorized [id number] 1 1 Referral ID Status Reason Start Date Expiration Date Visits Re quested Visits Authorized [id number] 1 1 Specialty Diagnoses / Procedures Referred By Polo t Referred To Contact Radiology Diagnoses Aortic valve stenosis, etiology of cardiac valve disease unspecified Procedures CT CARDIAC W C STC MORP CARD ONLY Namrata Blair, NURSING ATTENDANT - TOOL AND CUTTER GRINDER [address] [place] [address] Referral ID Status Reason Start Date Expiration Date Visits Re quested Visits Authorized [id number] Closed 01/11/2023 04/10/2023 1 1 Specialty Diagnoses / Procedures Referred By Polo t Referred To Contact Radiology Diagnoses Aortic valve stenosis, etiology of cardiac valve disease unspecified Procedures CTA CHEST ABDOMEN PELVIS W CONTRAST Namrata Blair, NURSING ATTENDANT - TOOL AND CUTTER GRINDER [address] [place] [address] Referral ID Status Reason Start Date Expiration Date Visits Re quested Visits Authorized [id number] Closed 01/11/2023 04/10/2023 1 1 Reason Comments Follow-up Reason Onset Date Comments Med Refill 12/06/2023 Reason Comments Cough Nasal Congestion Reason Comments Med Refill Reason Comments incontinence Reason Onset Date Comments Transition Of Care 08/16/2024 Reason Comments Med Change Request Reason Comments tcm Care Teams (unrecognized sec tion and content) 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 Start Date End Date DanielCaden M PCP - General Family Medicine 09/29/22 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 Start Date End Date DanielCaden M PCP - General Family Medicine 09/29/22 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 Start Date End Date Caden Sanchez PCP - General Family Medicine 09/29/22 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 Start Date End Date DanielCaden M PCP - General Family Medicine 09/29/22 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 Start Date End Date DanielCaden M PCP - General Family Medicine 09/29/22 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 Start Date End Date Pam Ley, NURSING ATTENDANT - TOOL AND CUTTER GRINDER [address] [place] [address] PCP - General 01/15/23 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 Start Date End Date Pam Ley [facility] [address] [place] [address] PCP - General 01/15/23 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 Start Date End Date Pam Ley [facility] [address] [place] [address] PCP - General Family Medicine 09/28/23 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 Start Date End Date Pam Ley [facility] [address] [place] [address] PCP - General Family Medicine 09/28/23 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 Start Date End Date Pam Ley [facility] [address] [place] [address] PCP - General Family Medicine 09/28/23 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 Start Date End Date Pam Ley [facility] [address] [place] [address] PCP - General Family Medicine 09/28/23 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 Start Date End Date Pam Ley [facility] [address] [place] [address] PCP - General Family Medicine 09/28/23 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 Start Date End Date Pam Ley [facility] [address] [place] [address] PCP - General [facility] Medicine 09/28/23 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 Start Date End Date Pam Ley [facility] [address] [place] [address] PCP - [facility] 09/28/23 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 Start Date End Date Pam Ley [facility] [address] [place] [address] PCP - [facility] 09/28/23 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 Start Date End Date Pam Ley [facility] [address] [place] [address] PCP - General [facility] Medicine 09/28/23 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 Start Date End Date Pam Ley [facility] [address] [place] [address] PCP - General Family Medicine 09/28/23 Ordered [...] dose on Wed12/08/22 at 0900, Until Discontinued 0926 (Given - Provider: Jacqueline Medina RN) 0802 (Given - Provider: Jacqueline Medina RN) 0846 (Given - Provider: Stefanie Lu, GABBY) atorvastatin (LIPITOR) tablet 80 mg 80 mg, Oral, NIGHTLY, First dose on Wed12/07/22 at 2100, Until Discontinued 2024 (Given - Provider: Tamika Villavicencio RN) 1956 (Given - Provider: Libia Lyons, GABBY) 2100 (Due) clopidogrel (PLAVIX) tablet 75 mg 75 [...] Villavicencio RN) 0959 (Stopped - Provider: Stefanie Lu, RN) PRN Medication Order 12/09/2022 12/10/2022 12/11/2022 [...] mg 1 mg, SubCUTAneous, PRN, Starting on Kim 12/10/22 at 0823, [...] mL 5-40 mL, IntraVENous, PRN, Starting on 12/07/22 at 1618, Until Discontinued, Line Care, After [...] back and for the from [facility]C to [facility] as needed for addt'l testing throughout the [...] BE BASED ON THE PRIMARY CLINICAL RECORDS. [employer] provides no warranty or guarantee of the accuracy or completeness of information in this document.
[2024-10-26 07:53] LABS: Bilirubin Urine SMALL (NEGATIVE); Blood Urine SMALL (NEGATIVE); Color Urine LT. YELLOW (YELLOW); Glucose Urine UA NEGATIVE (NEGATIVE); Ketones Urine 15 mg/dL (NEGATIVE); Leukocyte Esterase Urine MODERATE (NEGATIVE); Nitrite Urine NEGATIVE (NEGATIVE); Protein Urine 30 mg/dL (NEG/TRACE); Specific Gravity Urine >=1.030 (1.005-1.025); Urobilinogen Urine 0.2 EU/dL (0.2-1.0); pH Urine 5.5 (5.0-9.0)
[2024-10-26 07:55] LABS: Clarity Urine CLOUDY (CLEAR); Urine Microscopic Indicated YES
[2024-10-26 08:03] LABS: Bacteria Urine LARGE #/HPF (NONE SEEN); Mucus Urine LARGE (NONE SEEN); RBC Urine 0-2 #/HPF (0-2); Squamous Epithelial Cell Urine MANY #/LPF (NONE/RARE); WBC Urine 20-50 #/HPF (NONE SEEN)
[2024-10-26 08:04] LABS: Cast Seen? NONE SEEN #/LPF (NONE SEEN); Crystals Seen? None Seen #/HPF (None Seen); Urine Culture Indicated YES
--- NOTE | 2024-10-26 08:05 | PC.NURSE ---
pt is an extremely poor historian -- just says I can't get over this UTI . When asked about UTI sx pt just says I don't know . pt has scabs all over her arms and legs from scratching/picking at her skin. Pt states her daughter called EMS today because she vomited.
--- NOTE | 2024-10-26 08:12 | ED.GENADUL1 ---
HPI HPI - General Adult General Chief complaint: Urogenital-Female Stated complaint: MALAISE Time Seen by Provider: 10/26/24 07:30 Source: patient Mode of arrival: ambulance Limitations: no limitations History of Present Illness HPI narrative: The patient is presented to the bedside by the EMS after her daughter called because she has been having some frequency of urination, I spoke with the daughter she was not at the bedside and she mentioned that her mother still have urine infection symptoms The patient herself although not a good historian she was able to tell me that she has been having some more frequency and burning with urination The patient also had this rash on the right arm that was itchy and she was scratching it and she did not record any other symptoms Related Data Home Medications ?Medication ?Instructions ?Recorded ?Confirmed clopidogrel 75 mg tablet 75 mg PO QDAY 09/30/23 10/11/24 gabapentin 300 mg capsule 300 mg PO Q12H 09/30/23 10/11/24 letrozole 2.5 mg tablet 2.5 mg PO Q24H 09/30/23 10/11/24 pantoprazole 40 mg tablet,delayed 40 mg PO QDAY 09/30/23 10/11/24 release sertraline 100 mg tablet 100 mg PO QAM 09/30/23 10/11/24 trazodone 100 mg tablet 100 mg PO QPM 09/30/23 10/11/24 metoprolol succinate 25 mg 25 mg PO DAILY 02/27/24 10/11/24 tablet,extended release 24 hr insulin lispro 100 unit/mL 12 unit subcut TIDWM 04/06/24 10/11/24 subcutaneous pen lisinopril 5 mg tablet 5 mg PO DAILY 10/11/24 10/11/24 Previous Rx's ?Medication ?Instructions ?Recorded aspirin 81 mg capsule 81 mg PO DAILY #30 caps 02/28/24 atorvastatin 20 mg tablet 20 mg PO QPM #30 tabs 02/28/24 insulin detemir U-100 100 unit/mL 20 unit (0.2 mL) subcut QPM #15 mL 04/11/24 (3 mL) subcutaneous pen (Levemir FlexPen) bacitracin 500 unit/gram topical 1 applic topical BID #14 grams 10/26/24 ointment cephalexin 500 mg capsule 500 mg PO Q12H 7 days #14 caps 10/26/24 Allergies Allergy/AdvReac Type Severity Reaction Status Date / Time No Known Drug Allergies Allergy Verified 10/11/24 15:40 Opioid HPI Opioid Management Most Recent Opioid Data: Last Pain Scale 0 04/11/24 12:19 04/11/24 Last Pain Intensity 2 04/07/24 10:58 04/07/24 Last ORT Total Score 0 10/11/24 20:21 10/11/24 Last ORT Risk Category Low Risk 10/11/24 20:21 10/11/24 Review of Systems ROS Status of ROS 10 or more systems reviewed and unremarkable except as noted in history and below [facility] Medical History (Updated 10/26/24 @ 08:29 by Pat Burroughs MD) Stage 4 chronic kidney disease ?N18.4 - Chronic kidney disease, stage 4 (severe) (ICD-10) UTI (urinary tract infection) ?N39.0 - Urinary tract infection, site not specified (ICD-10) Acute UTI ?N39.0 - Urinary tract infection, site not specified (ICD-10) H/O malignant neoplasm of female breast ?Z85.3 - Personal history of malignant neoplasm of breast (ICD-10) Aortic stenosis ?I35.0 - Nonrheumatic aortic (valve) stenosis (ICD-10) Arthritis ?M19.90 - Unspecified osteoarthritis, unspecified site (ICD-10) Anemia ?D64.9 - Anemia, unspecified (ICD-10) Asthma ?J45.909 - Unspecified asthma, uncomplicated (ICD-10) Encephalitis ?G04.90 - Encephalitis and encephalomyelitis, unspecified (ICD-10) Metastasis to bone ?C79.51 - Secondary malignant neoplasm of bone (ICD-10) Peptic ulcer disease ?K27.9 - Peptic ulcer, site unspecified, unspecified as acute or chronic, without hemorrhage or perforation (ICD-10) TIA (transient ischemic attack) ?G45.9 - Transient cerebral ischemic attack, unspecified (ICD-10) CHELSEA (obstructive sleep apnea) ?G47.33 - Obstructive sleep apnea (adult) (pediatric) (ICD-10) PVD (peripheral vascular disease) ?I73.9 - Peripheral vascular disease, unspecified (ICD-10) Lumbar spondylosis ?M47.816 - Spondylosis without myelopathy or radiculopathy, lumbar region (ICD-10) Incontinence ?R32 - Unspecified urinary incontinence (ICD-10) CKD (chronic kidney disease) stage 3, GFR 30-59 ml/min ?N18.30 - Chronic kidney disease, stage 3 unspecified (ICD-10) Breast CA ?C50.919 - Malignant neoplasm of unspecified site of unspecified female breast (ICD-10) CAD (coronary artery disease) ?I25.10 - Atherosclerotic heart disease of [place] coronary artery without angina pectoris (ICD-10) Depression ?F32.A - Depression, unspecified (ICD-10) GERD (gastroesophageal reflux disease) ?K21.9 - Gastro-esophageal reflux disease without esophagitis (ICD-10) Hypertension ?I10 - Essential (primary) hypertension (ICD-10) Diabetes ?E11.9 - Type 2 diabetes mellitus without complications (ICD-10) Surgical History (Updated 10/26/24 @ 07:20 by Sandy Benton RN) S/P HOURLY SHIFT MANAGER shunt ?Z98.2 - Presence of cerebrospinal fluid drainage device (ICD-10) H/O heart artery stent ?Z95.5 - Presence of coronary angioplasty implant and graft (ICD-10) History of ventriculoperitoneal shunting ?Z92.89 - Personal history of other medical treatment (ICD-10) History of mastectomy ?Z90.10 - Acquired absence of unspecified breast and nipple (ICD-10) H/O lumpectomy ?Z98.890 - Other specified postprocedural states (ICD-10) S/P balloon mitral valvuloplasty ?Z98.890 - Other specified postprocedural states (ICD-10) S/P mitral valve replacement with bioprosthetic valve ?Z95.3 - Presence of xenogenic heart valve (ICD-10) Family History (Updated 04/06/24 @ 02:06 by Alayna Garay RN) Other Family history of CHF (congestive heart failure) Family history of diabetes mellitus Family history of myocardial infarction Social History Within the past year, how often did you have a drink containing alcohol: never Score interpretation: A score less than 3 is consistent with normal alcohol consumption. 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 Known occupational exposures/hazards: No Highest level of school completed/degree received: high school graduate Do you want help with school or training: No Are you now , , , , never or living with a partner: never In a typical week, how many times do you talk on the telephone with family, friends, or neighbors: 3 or more times per week How often do you get together with friends or relatives: never How often do you attend orthodoxy or latter day services: 4 or more times per year Do you belong to any clubs or organizations such as orthodoxy groups unions, fraternal or athletic groups, or school groups: no Total score: 2 Score interpretation: A score of greater than or equal to 2 indicates the lowest level of social isolation. Little interest or pleasure in doing things: not at all Feeling down, depressed, or hopeless: not at all Feel stressed/tense/nervous/anxious/difficulty sleeping: not at all Due to disability, difficulty making decisions: No Do you think of yourself as: straight/heterosexual Gender Identity: female Exam Narrative Exam Narrative: Nurses notes and vital signs reviewed and patient is not hypoxic. General: Well-appearing and in no apparent distress. Skin: Warm, dry, no pallor noted. The patient have on the right arm a small lesion that is almost 1 x 2 cm linear and is mostly secondary to abrasion or scratching guero Head: Normocephalic, atraumatic. Neck: Supple, non-tender. Eye: Pupils are equal, round and EOMI. No scleral icterus. Ears, Nose, Mouth, and Throat: TM are clear, no nasal mucosal hypertrophy. Oral mucosa is moist, no posterior oropharynx erythema, uvula is mid-line Cardiovascular: Regular Rate and Rhythm without murmur, gallop or rub. Respiratory: No accessory muscle use or respiratory distress. Lungs are clear to auscultation, no wheezing, rales or rhonchi Chest Wall: no tenderness Back: No midline thoracic or lumbar vertebral tenderness. No CVA tenderness Musculoskeletal: normal ROM, no calf or popliteal tenderness, no lower extremity edema/swelling GI: Abdomen is soft, non-distended. Normal bowel sounds. No masses appreciated. No tenderness to palpation. No rebound, guarding, or rigidity noted. Neurological: A&O x4. No cranial nerve dysfunction observed. Moves all extremities. Sensation intact. Psychiatric: Cooperative and interactive. Normal mood and affect. Constitutional Vital Signs, click to edit/add: Last Vital Signs Temp 98.3 F 10/26/24 06:58 Pulse 92 H 10/26/24 06:58 Resp 20 10/26/24 06:58 BP 146/119 H 10/26/24 06:58 Pulse Ox 98 10/26/24 06:58 O2 Del Method Room Air 10/26/24 06:58 Course Vital Signs Vital signs: Vital Signs Temperature 98.3 F 10/26/24 06:58 Pulse Rate 92 H 10/26/24 06:58 Respiratory Rate 20 10/26/24 06:58 Blood Pressure 146/119 H 10/26/24 06:58 Pulse Oximetry 98 10/26/24 06:58 Oxygen Delivery Method Room Air 10/26/24 06:58 Temperature 98.3 F 10/26/24 06:58 Pulse Rate 92 H 10/26/24 06:58 Respiratory Rate 20 10/26/24 06:58 Blood Pressure 146/119 H 10/26/24 06:58 Pulse Oximetry 98 10/26/24 06:58 Oxygen Delivery Method Room Air 10/26/24 06:58 Medical Decision Making MDM Narrative Medical decision making narrative: Urinalysis still showing UTI I did look at the patient previous history and urine culture shows sensitivity to ceftriaxone Patient was provided with Keflex twice a day for 7 days in addition to ceftriaxone in the ER I spoke with the patient daughter and she was well-informed about her mother she mentioned that she is supposed to follow-up with her primary care doctor in [place] and she did mention that the patient has been taking cefdinir with no improvement I did change the patient antibiotic to Keflex Initially ciprofloxacin was considered but because of her medication interaction and the fact that the culture sensitivities positive for ceftriaxone she was started on Keflex The patient had the bacitracin also at the local treatment for her abrasion to the right arm Last time the patient was here in September there was a concern apparently raised by Adult Protective Services and the EMS but at that time the patient was admitted and that there was no more concern for any neglect and the patient was discharged home and at this moment after speaking with the daughter and the fact that the patient presenting to us was well-kept and not disheveled no concern right now for neglect The patient is to follow up with primary care physician in next 2-3 days or to return to the emergency department should any of the signs or symptoms worsen or new symptoms develop. The patient agrees with the following Diagnosis and Treatment plan and the patient will be discharged home. Lab Data Labs: Lab Results 10/26/24 Range/Units 07:45 Urine Color Lt. yellow (YELLOW) Urine Clarity Cloudy A (CLEAR) Urine pH 5.5 (5.0-9.0) Ur Specific [place] >=1.030 A (1.005-1.025) Urine Protein 30 A (NEG/TRACE) mg/dL Urine Glucose (UA) Negative (NEGATIVE) mg/dL Urine Ketones 15 A (NEGATIVE) mg/dL Urine Occult Blood Small A (NEGATIVE) Urine Nitrite Negative (NEGATIVE) Urine Bilirubin Small A (NEGATIVE) Urine Urobilinogen 0.2 (0.2-1.0) EU/dL Ur Leukocyte Esterase Moderate A (NEGATIVE) Urine RBC 0-2 (0-2) #/HPF Urine WBC 20-50 A (NONE SEEN) #/HPF Ur Squamous Epith Cells Many A (NONE/RARE) #/LPF Urine Crystals None seen (None Seen) #/HPF Urine Bacteria Large A (NONE SEEN) #/HPF Urine Casts None seen (NONE SEEN) #/LPF Urine Mucus Large A (NONE SEEN) Ur Culture Indicated? Yes Discharge Plan Discharge Chief Complaint: Urogenital-Female Clinical Impression: Urinary tract infection, Abrasion of arm, right Patient Disposition: Home, Self-Care Time of Disposition Decision: 08:29 Condition: Good Mode of Transportation: Private Vehicle Prescriptions / Home Meds: New bacitracin 500 unit/gram ointment 1 applic topical BID Qty: 14 0RF cephalexin 500 mg capsule 500 mg PO Q12H 7 Days Qty: 14 0RF Discontinued cefdinir 300 mg capsule 300 mg PO Q12H ondansetron 4 mg tablet,disintegrating 4 mg PO Q8H 3 Days Qty: 9 0RF fluconazole 150 mg tablet 150 mg PO QWEEK Qty: 2 0RF Rx Instructions: to be taken on day 1 and day 7 of antibiotics No Action sertraline 100 mg tablet 100 mg PO QAM clopidogrel 75 mg tablet 75 mg PO QDAY trazodone 100 mg tablet 100 mg PO QPM pantoprazole 40 mg tablet,delayed release (DR/EC) 40 mg PO QDAY gabapentin 300 mg capsule 300 mg PO Q12H letrozole 2.5 mg tablet 2.5 mg PO Q24H metoprolol succinate 25 mg tablet extended release 24 hr 25 mg PO DAILY aspirin 81 mg capsule 81 mg PO DAILY Qty: 30 0RF atorvastatin 20 mg tablet 20 mg PO QPM Qty: 30 0RF lisinopril 5 mg tablet 5 mg PO DAILY insulin lispro 100 unit/mL insulin pen 12 unit SUBCUT TIDWM Levemir FlexPen 100 unit/mL (3 mL) Insulin Pen 20 unit subcut QPM Qty: 15 0RF Print Language: Luxembourgish Instructions: Urinary Tract Infection in Older Adults (ED) Referrals: PAM STINSON [Primary Care Provider] - 1 week Discharge Date/Time: 10/26/24 09:20
[2024-10-26] MEDS: CEFTRIAXONE 1,000 MG, LIDOCAINE HCL/PF 2.1 ML IM (09:03)
[2024-10-26] MEDS: BACITRACIN 0.9 GM PACKET 1 PACKET TOPICAL (09:03)
== END 2024-10-26 09:20 | disposition home or self-care (01) ==
PROVIDERS: Emergency Provider Emergency Medicine; PCP Nurse Practitioner
DX: N39.0 Urinary tract infection, site not specified (principal); S40.811A Abrasion of right upper arm, initial encounter; Z95.5 Presence of coronary angioplasty implant and graft; Z90.10 Acquired absence of unspecified breast and nipple; Z95.3 Presence of xenogenic heart valve; X58.XXXA Exposure to other specified factors, initial encounter
CPT/HCPCS: 81001; 87086; 87186; 96372; 99284; J0696

== ENCOUNTER 2025-06-22 22:09 | Emergency (ER) | payer MEDICARE, MEDICAID, SELFPAY ==
[2025-06-22 22:16] VITALS: BP 114/72; PULSE 82; TEMP 36.8; O2SAT 92; BMI 31.5
--- NOTE | 2025-06-22 23:30 | XR_ITS ---
The [address] [address] Patient Name: TERESA GOODWIN MRN: [id number] date: 1945 Sex: F Assigned Patient Location: ER Current Patient Location: Accession/Order Number: [id number] Exam Date: 06/23/2025 08:56 Report Date: 06/23/2025 08:57 At the request of: ELLIS CROOKS DO Procedure: XR hip RT 2V w/ pelvis Right hip 2 views of one view pelvis. Reason for exam: Fall 2 days ago. COMPARISON: None. FINDINGS: Bones are grossly pneumatized limiting evaluation for fracture. There appears be remote posttraumatic changes involving the inferior pubic rami bilaterally. No definitive acute process is seen. Operative changes involving the hips. Additional degenerative changes involving the visualized lower lumbar spine and SI joints. XR/XR hip RT 2V w/ pelvis IMPRESSION: Degenerative changes involving the right hip and bony pelvis without acute bony process. Impression dictated by: Jorge Luis Carter Jr., DAlisonOAlison 06/23/2025 8:57 AM Dictation Location: [facility] Electronically authenticated by: [id number] Y Date: 06/23/2025 08:57
--- NOTE | 2025-06-22 23:30 | XR_ITS ---
The [address] [address] Patient Name: TERESA GOODWIN MRN: [id number] date: 1945 Sex: F Assigned Patient Location: ER Current Patient Location: Accession/Order Number: [id number] Exam Date: 06/23/2025 08:55 Report Date: 06/23/2025 08:56 At the request of: ELLIS CROOKS DO Procedure: XR femur RT 2V RIGHT FEMUR - 2 views: CLINICAL HISTORY: fall 2 days ago COMPARISON: None AP and lateral views were obtained. Bones are grossly demineralized. Vascular calcifications are present. No definitive fracture is seen. There appears to BE remote post traumatic changes involving the inferior pubic rami. Mild degenerative changes involving the right hip. Degenerative changes are seen involving the visualized knee joint. XR/XR femur RT 2V IMPRESSION: DEGENERATIVE CHANGES INVOLVING THE RIGHT FEMUR WITHOUT ACUTE BONY PROCESS. Impression dictated by: Jorge Luis Carter Jr., D.O. 06/23/2025 8:56 AM Dictation Location: [place] [address] Electronically authenticated by: [id number] Y Date: 06/23/2025 08:56
[2025-06-22] MEDS: OXYCODONE HCL 5 MG TABLET 10 MG PO (23:46)
[2025-06-23 00:29] VITALS: BP 130/94; PULSE 68; O2SAT 94
--- NOTE | 2025-06-23 05:54 | ED.GENADUL1 ---
HPI HPI - General Adult General Chief complaint: Fall Stated complaint: LEG PAIN Time Seen by Provider: 06/22/25 23:21 Source: patient Mode of arrival: ambulance Limitations: no limitations History of Present Illness HPI narrative: Patient is a 80 year old female presenting to the ED via EMS for concerns of right hip pain. EMS was called by the patient's daughter, whom she lives with. According to the daughter, who I spoke on the phone with, her mother had a RLE injury one month ago when it sounds like she had a quadriceps tendon injury. She has been doing PT and been in a wheel chair since this incident. Tonight, the patient was in more pain that usual, which prompted this ED visit. They have been using Tylenol for pain, without much relief. Otherwise, there has been no new interval falls or injuries. Other than hip pain, the patient has no other complaints. No numbness or weakness in the affected leg. No SOB/CP/fevers/n/v/d. No loss of bladder/bowel function. No low back pain. Related Data Home Medications ?Medication ?Instructions ?Recorded ?Confirmed clopidogrel 75 mg tablet 75 mg PO QDAY 09/30/23 10/11/24 gabapentin 300 mg capsule 300 mg PO Q12H 09/30/23 10/11/24 letrozole 2.5 mg tablet 2.5 mg PO Q24H 09/30/23 10/11/24 pantoprazole 40 mg tablet,delayed 40 mg PO QDAY 09/30/23 10/11/24 release sertraline 100 mg tablet 100 mg PO QAM 09/30/23 10/11/24 trazodone 100 mg tablet 100 mg PO QPM 09/30/23 10/11/24 metoprolol succinate 25 mg 25 mg PO DAILY 02/27/24 10/11/24 tablet,extended release 24 hr insulin lispro 100 unit/mL 12 unit subcut TIDWM 04/06/24 10/11/24 subcutaneous pen lisinopril 5 mg tablet 5 mg PO DAILY 10/11/24 10/11/24 Previous Rx's ?Medication ?Instructions ?Recorded aspirin 81 mg capsule 81 mg PO DAILY #30 caps 02/28/24 atorvastatin 20 mg tablet 20 mg PO QPM #30 tabs 02/28/24 insulin detemir U-100 100 unit/mL 20 unit (0.2 mL) subcut QPM #15 mL 04/11/24 (3 mL) subcutaneous pen (Levemir FlexPen) bacitracin 500 unit/gram topical 1 applic topical BID #14 grams 10/26/24 ointment cephalexin 500 mg capsule 500 mg PO Q12H 7 days #14 caps 10/26/24 ciprofloxacin HCl 250 mg tablet 250 mg PO BID #10 tabs 10/31/24 (Cipro) Allergies Allergy/AdvReac Type Severity Reaction Status Date / Time No Known Drug Allergies Allergy Verified 06/22/25 22:21 Opioid HPI Opioid Management Most Recent Opioid Data: Last Pain Scale 0 04/11/24, 12:19 Last Pain Intensity 2 04/07/24, 10:58 Last ORT Total Score 0 10/11/24, 20:21 Last ORT Risk Category Low Risk 10/11/24, 20:21 Review of Systems ROS Status of ROS 10 or more systems reviewed and unremarkable except as noted in history and below [facility] Medical History (Updated 06/23/25 @ 05:52 by Les Orellana DO) Stage 4 chronic kidney disease ?N18.4 - Chronic kidney disease, stage 4 (severe) (ICD-10) UTI (urinary tract infection) ?N39.0 - Urinary tract infection, site not specified (ICD-10) Acute UTI ?N39.0 - Urinary tract infection, site not specified (ICD-10) H/O malignant neoplasm of female breast ?Z85.3 - Personal history of malignant neoplasm of breast (ICD-10) Aortic stenosis ?I35.0 - Nonrheumatic aortic (valve) stenosis (ICD-10) Arthritis ?M19.90 - Unspecified osteoarthritis, unspecified site (ICD-10) Anemia ?D64.9 - Anemia, unspecified (ICD-10) Asthma ?J45.909 - Unspecified asthma, uncomplicated (ICD-10) Encephalitis ?G04.90 - Encephalitis and encephalomyelitis, unspecified (ICD-10) Metastasis to bone ?C79.51 - Secondary malignant neoplasm of bone (ICD-10) Peptic ulcer disease ?K27.9 - Peptic ulcer, site unspecified, unspecified as acute or chronic, without hemorrhage or perforation (ICD-10) TIA (transient ischemic attack) ?G45.9 - Transient cerebral ischemic attack, unspecified (ICD-10) CHELSEA (obstructive sleep apnea) ?G47.33 - Obstructive sleep apnea (adult) (pediatric) (ICD-10) PVD (peripheral vascular disease) ?I73.9 - Peripheral vascular disease, unspecified (ICD-10) Lumbar spondylosis ?M47.816 - Spondylosis without myelopathy or radiculopathy, lumbar region (ICD-10) Incontinence ?R32 - Unspecified urinary incontinence (ICD-10) CKD (chronic kidney disease) stage 3, GFR 30-59 ml/min ?N18.30 - Chronic kidney disease, stage 3 unspecified (ICD-10) Breast CA ?C50.919 - Malignant neoplasm of unspecified site of unspecified female breast (ICD-10) CAD (coronary artery disease) ?I25.10 - Atherosclerotic heart disease of [place] coronary artery without angina pectoris (ICD-10) Depression ?F32.A - Depression, unspecified (ICD-10) GERD (gastroesophageal reflux disease) ?K21.9 - Gastro-esophageal reflux disease without esophagitis (ICD-10) Hypertension ?I10 - Essential (primary) hypertension (ICD-10) Diabetes ?E11.9 - Type 2 diabetes mellitus without complications (ICD-10) Surgical History (Updated 10/26/24 @ 07:20 by Sandy Benton RN) S/P JIG BOX OPERATOR shunt ?Z98.2 - Presence of cerebrospinal fluid drainage device (ICD-10) H/O heart artery stent ?Z95.5 - Presence of coronary angioplasty implant and graft (ICD-10) History of ventriculoperitoneal shunting ?Z92.89 - Personal history of other medical treatment (ICD-10) History of mastectomy ?Z90.10 - Acquired absence of unspecified breast and nipple (ICD-10) H/O lumpectomy ?Z98.890 - Other specified postprocedural states (ICD-10) S/P balloon mitral valvuloplasty ?Z98.890 - Other specified postprocedural states (ICD-10) S/P mitral valve replacement with bioprosthetic valve ?Z95.3 - Presence of xenogenic heart valve (ICD-10) Family History (Updated 04/06/24 @ 02:06 by Alayna Garay RN) Other Family history of CHF (congestive heart failure) Family history of diabetes mellitus Family history of myocardial infarction Social History Within the past year, how often did you have a drink containing alcohol: never Score interpretation: A score less than 3 is consistent with normal alcohol consumption. 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 Known occupational exposures/hazards: No Highest level of school completed/degree received: high school graduate Do you want help with school or training: No Are you now , , , , never or living with a partner: never In a typical week, how many times do you talk on the telephone with family, friends, or neighbors: 3 or more times per week How often do you get together with friends or relatives: never How often do you attend mormon or presybeterian services: 4 or more times per year Do you belong to any clubs or organizations such as mormon groups unions, fraternal or athletic groups, or school groups: no Total score: 2 Score interpretation: A score of greater than or equal to 2 indicates the lowest level of social isolation. Little interest or pleasure in doing things: not at all Feeling down, depressed, or hopeless: not at all Feel stressed/tense/nervous/anxious/difficulty sleeping: not at all Due to disability, difficulty making decisions: No Do you think of yourself as: straight/heterosexual Gender Identity: female Exam Narrative Exam Narrative: MSK: There is tenderness to palpation in the right hip. No overlying erythema or draining. No deformities. No crepitus. She has full ROM at the right knee and ankle. Limited ROM at the right hip, limited by pain. Negative log roll b/l. Leg lengths are equal. Equal strength and sensation to light touch in the bilateral lower extremities. Good distal perfusion with warm extremities. No pallor. 2+ DP pulses bilaterally. Constitutional Vital Signs, click to edit/add: Last Vital Signs Temp 98.2 F 06/22/25 22:16 Pulse 68 06/23/25 00:29 Resp 18 06/23/25 00:29 BP 130/94 H 06/23/25 00:29 Pulse Ox 94 L 06/23/25 00:29 O2 Del Method Room Air 06/23/25 00:29 Other: Awake, alert, in moderate distress secondary to pain. HENMT Common normals: normocephalic and head/scalp atraumatic Eye Common normals: no scleral icterus General eye: normal appearance of both eyes Respiratory Common normals: normal respiratory effort, no use of accessory muscles and clear to auscultation bilaterally Effort & inspection: able to speak in complete sentences Cardio Common normals: regular rate, regular rhythm, S1 normal heart sound, S2 normal heart sound and peripheral pulses 2+ throughout GI Common normals: Normal to inspection, nondistended, normoactive bowel sounds present, soft to palpation and non-tender Back & Pelvis Common normals: thoracic and lumbar spine normal to inspection and no thoracic nor lumbar tenderness Neuro Common normals: oriented x3, moves all extremities, no focal motor deficits and no sensory deficits noted Psych Common normals: mental status grossly normal, thought process normal and cooperative Course Vital Signs Vital signs: Vital Signs Temperature 98.2 F 06/22/25 22:16 Pulse Rate 82 06/22/25 22:16 Respiratory Rate 20 06/22/25 22:16 Blood Pressure 114/72 06/22/25 22:16 Pulse Oximetry 92 L 06/22/25 22:16 Oxygen Delivery Method Room Air 06/22/25 22:16 Temperature 98.2 F 06/22/25 22:16 Pulse Rate 68 06/23/25 00:29 Respiratory Rate 18 06/23/25 00:29 Blood Pressure 130/94 H 06/23/25 00:29 Pulse Oximetry 94 L 06/23/25 00:29 Oxygen Delivery Method Room Air 06/23/25 00:29 Medical Decision Making MDM Narrative Medical decision making narrative: Patient is a 80 year old female presenting to the ED via EMS for acute exacerbation of right hip pain, which as been ongoing for 1 month after reported quadriceps tendon injury. Vital signs on arrival are within normal limits. She is afebrile and hemodynamically stable. Examination as noted above, however was notable for tenderness at the right hip. She is neurovascularly intact in the bilateral LE with good distal perfusion, strength, sensation. She has full ROM at the right knee, and some limitation with ROM at the right hip. Differential diagnosis includes right hip fracture, femur fracture, sciatica, and pain related to previous tendon injury. No neurologic deficits to suggest cauda equina syndrome. X-rays of the right hip, pelvis, and femur were obtain. She was given oxycodone orally for pain. X-rays independently reviewed/interpreted by myself demonstrated no acute osseus abnormalities. Final read by radiology was pending at the time of discharge. On re-evaluation, patient appears more comfortable and states her pain has resolved. I discussed the patient's ED visit with the daughter, who was comfortable picking the patient up and continuing care at home. I wrote a prescription for oxycodone 10mg TID prn for pain x 10 tabs. She was instructed to follow up with her family doctor as needed. Return precautions were given including any new or concerning symptoms. Patient and her daughter understand and agree to the plan. Imaging Data hip xray R: Attestation: I personally reviewed and interpreted this imaging study as follows: My impression: No acute osseus abnormalities or evidence of hip fracture. Radiologist's impression: Peding at time of discharge Discharge Plan Discharge Chief Complaint: Fall Clinical Impression: Leg pain, right Patient Disposition: Home, Self-Care Time of Disposition Decision: 05:51 Mode of Transportation: Private Vehicle Prescriptions / Home Meds: No Action sertraline 100 mg tablet 100 mg PO QAM clopidogrel 75 mg tablet 75 mg PO QDAY trazodone 100 mg tablet 100 mg PO QPM pantoprazole 40 mg tablet,delayed release (DR/EC) 40 mg PO QDAY gabapentin 300 mg capsule 300 mg PO Q12H letrozole 2.5 mg tablet 2.5 mg PO Q24H metoprolol succinate 25 mg tablet extended release 24 hr 25 mg PO DAILY aspirin 81 mg capsule 81 mg PO DAILY Qty: 30 0RF atorvastatin 20 mg tablet 20 mg PO QPM Qty: 30 0RF lisinopril 5 mg tablet 5 mg PO DAILY bacitracin 500 unit/gram ointment 1 applic topical BID Qty: 14 0RF cephalexin 500 mg capsule 500 mg PO Q12H 7 Days Qty: 14 0RF ciprofloxacin HCl [Cipro] 250 mg tablet 250 mg PO BID Qty: 10 0RF insulin lispro 100 unit/mL insulin pen 12 unit SUBCUT TIDWM Levemir FlexPen 100 unit/mL (3 mL) Insulin Pen 20 unit subcut QPM Qty: 15 0RF Print Language: Swazi Instructions: Leg Pain (ED) Referrals: PAM STINSON [Primary Care Provider, Unknown] - 1 week
== END 2025-06-23 02:00 | disposition home or self-care (01) ==
PROVIDERS: Emergency Provider Student in an Organized Health Care Education/Training Program; PCP Nurse Practitioner
DX: M79.604 Pain in right leg (principal); Z95.5 Presence of coronary angioplasty implant and graft; Z90.10 Acquired absence of unspecified breast and nipple; Z95.3 Presence of xenogenic heart valve; Z98.2 Presence of cerebrospinal fluid drainage device
CPT/HCPCS: 73502; 73552; 99284

== ENCOUNTER 2025-06-25 12:49 | Observation (INO) | payer MEDICARE, MEDICAID, SELFPAY ==
--- OUTSIDE RECORDS SUMMARY | 2025-02-06 05:17 | XMS_ITS ---
Author Organization The [facility] in [place] Address [address] [place] [address] Care Team Providers Care Museum Service Scheduler Name Role Phone Stephanie Ley Primary Care Provider Brenda Brownlee Unavailable [phone] REASON FOR VISIT Potassium Encounters Encounter Location Date Provider Diagnosis [facility] [place] [address] [place] [address] 02/06/2025 Brenda Mack CKD (chronic kidney disease) stage 4, GFR 15-29 ml/min N18.4 Assessments Encounter Date Diagnosis (ICD Code) Assessment Notes Treatment Notes Treatment Clinical Notes Section Notes 02/06/2025 CKD (chronic kidney disease) stage 4, GFR 15-29 ml/min (ICD-10 - N18.4) Plan Of Treatment Pending Test Test Name Order Date BMP (BASIC MET PANEL) w/eGFR CKD-EPI Next Appt Details Provider Name:Raul Arellano, 06/27/2025 12:40:00 PM, [address] [place], [address], Progress Notes * Cuca GOODWINDOB:[birth year] (79 yo F)Acc No.[id number]:02/06/2025 Patient: Cuca WARNER :1945 A ge:79 Y S ex:Female Address:[address] [place] [address], [phone] Subjective: * Chief Complaints: * P otassium * Medical History: * Surgical History: * Hospitalization/Major Diagno stic Procedure: * Medications: Objective: * Vitals: * Physical Examination: Assessment: * Assessment: 1. C KD (chronic kidney disease) stage 4, GFR 15-29 ml/min - N18.4 Plan: * Treatment: * Procedure Codes: * true * Date: Generated for Dash hines/Joselito/Anatolysmitting on: 0 06/25/2025 01:06 PM EDT
--- OUTSIDE RECORDS SUMMARY | 2025-02-12 06:07 | XMS_ITS | Continuity of Care Document ---
Author Organization [facility] Address [address] [place] [address] Phone Care Team Providers Care Business Technology Architect Name Role Phone Bhavik La MD, Kendall Unavailable Unavailabl e Allergies, Adverse Reactions, Alerts Substance Reaction Status Criticality No Known Allergies Active No Inform ation Medications Medication Instructions Dosage Effective Dates (start - stop) Status Comments Avastin 25 mg/mL intravenous solution Direct Patient Administration Only - Active OU lisinopril 5 mg tablet take 1 tablet by oral route every day 5 MG - Active furosemide 20 mg tablet take 1 tablet by oral route every day 20 MG - Active atorvastatin 40 mg tablet take 1 tablet by oral route every day 40 MG - Active sertraline 100 mg tablet take 1 tablet b y oral route every day 100 MG - Active metoprolol succinate ER 25 mg tablet,extended release 24 hr take 1 tablet by oral route every day 25 MG - Active gabapentin 300 mg capsule take 1 capsule by oral route 4 times every day 300 MG - Active hydrochlorothiazide 12.5 mg Cap take 2 capsule (25MG) by oral route every day 25 MG - Active metoprolol tartrate 25 mg Tab take 1 tablet (25MG) by oral route 2 times every day 25 MG - Active pravastatin 40 mg Tab take 1 tablet (40MG) by oral route every day 40 MG - Active naproxen 500 mg Tab take 1 tablet (500MG) by oral route 2 times every day with food 500 MG - Active VITAMIN D3 (unknown strength) Not Available - Active Novolog 100 unit/mL Sub-Q inject by subcutaneous route as per insulin sliding scale protocol - Active Levemir 100 unit/mL Sub-Q inject by subcutaneous route as per insulin sliding scale protocol - Active Procedures Procedure Date Intravitreal Injection Of Phamacologic A gent Fundus Photos No Charge Bilateral Ophthal DX Image Post Retina I And R Uni Or Bi Injection Bevacizumab .25 MG Intraocular Avastin OFFICE/OUTPATIENT VISIT, NEW Medical Eye Exam, Established Diabetic Dilated Exam OCT EYE EXAM [facility] Diabetic Dilated Exam OCT Intravitreal Injection Lucentis Ranibizumab Injection 13 Eye Exam With Treatment Diabetic Dilated Exam OCT Intravitreal Injection Lucentis Ranibizumab Injection 13 EYE EXAM [facility] OCT Intravitreal Injection Lucentis Ranibizumab Injection 13 [...] Copied on Encounter [facility], [address], [place], [address], [place] tel:[phone] ANGELA Waller No Information Bhavik Argueta. [address], [address], [place], [address], [place]. tel:[phone] OFFICE/OUTPA TIENT VISIT, NEW [facility], [address], [place], [address], [place] tel:[phone] [facility] [place] AMD (chief complaint) Proliferative diabetic retinopathy of right eye without macular edema associated with type 2 diabetes mellitusProliferative diabetic retinopathy of left eye with macular edema associated with type 2 diabetes mellitusIntermediate stage nonexudative age-related macular degeneration of both eyesPresence of intraocular lensPVD (posterior vitreous detachment), both eyesEpiretinal membrane (ERM) of left eye Jan-0 5 Bhavik Argueta. [address], Suite [facility], [place], [address], [place]. tel:[phone] Referring Provider: Kendall Villar, [address] [facility], [place], [address]. tel:[phone] [facility], [address] [place], [address], [place] tel:[phone] [facility] [place] Venous tributary (branch) occlusion of retinaRetinal edemaPseudophakia 0 3 Merrill Kaminski. [address], [address] [place] [address], [id number] , [place]. tel:[phone] Referring Provider: Gordy Mendoza, [address] [facility], [place], [address] . tel:[phone] [facility], [address] [place], [address], [place] tel:[phone] [facility] [place] Venous tributary (branch) occlusion of retinaRetinal edemaSenile nuclear sclerosisPseudophakia 2 3 Merrill Kaminski. [address], [address] [place] [address], [id number] , [place]. tel:[phone] Referring Provider: Gordy Mendoza, [address] [facility], [place], [address] . tel:[phone] [facility], [address] [place], [address], [place] tel:[phone] [facility] [place] Retinal edemaVenous tributary (branch) occlusion of retinaPseudophakia 3 Merrill Kaminski. [address], [address], [place], [place], [id number] , [place]. tel:[phone] Referring Provider: Gordy Mendoza, [address], [place], [address] . tel:[phone] [facility], [address] [place], [address], [place] tel:[phone] [facility] [place] Venous tributary (branch) occlusion of retinaRetinal edemaPseudophakiaPseu dophakia 3 Merrill Kaminski. [address], [address] [facility], [place], [place], [id number] , [place]. tel:[phone] Referring Provider: Gordy Mendoza, [address] [facility], [place], [address] . tel:[phone] [facility], [address] [place], [address], [place] tel:[phone] [facility] [place] Retinal edemaVenous tributary (branch) occlusion of retinaSenile nuclear sclerosis 3 Merrill Kaminski. [address], [address] [facility], [place], [place], [id number] , [place]. tel:[phone] Referring Provider: Gordy Mendoza, [address] [facility], [place], [address] . tel:[phone] Office Visit, Kushal [facility], [address] [place], [address], [place] tel:[phone] [facility] [place] Retinal edemaVenous tributary (branch) occlusion of retinaSenile nuclear sclerosis 2 Merrill Kaminski. [address], [address] [facility], [place], [place], [id number] , [place]. tel:[phone] Referring Provider: Gordy Mendoza, [address] [facility], [place], [address] . tel:[phone] Office Visit, [place] [facility], [address] [place], [address], [place] tel: [phone] [facility] [place] Venous tributary (branch) occlusion of retinaRetinal edemaSenile nuclear sclerosis Sep- 2 Merrill Kaminski. [address], [address] [facility], [place], [place], [id number] , [place]. tel: [phone] Referring Provider: Gordy Mendoza, [address] [facility], [place], [address] . tel:[phone] Office Visit, [place] [facility], [address] [employer] [place], [address], [place] tel: [phone] [facility] [place] Venous tributary (branch) occlusion of retinaRetinal edemaSenile nuclear sclerosis Oct- 2 Merrill Kaminski. [address], [address] [facility], [place], [place], [id number] , [place]. tel: [phone] Referring Provider: Gordy Mendoza, [address] [facility], [place], [address] . tel:[phone] [facility], [address] [employer] [place], [address], [place] tel: [phone] [facility] [place] Venous tributary (branch) occlusion of retinaRetinal edemaSenile nuclear sclerosis Oct- 2 Merrill Kaminski. [address], [address] [facility], [place], [place], [id number] , [place]. tel:[phone] Family History Family Member Type Diagnosis Age At Onset Problem (finding) Family history of Heart Disease Mother Problem (finding) Arthritis Mother Problem (finding) Cataracts Mother Problem (finding) Diabetes mellitus Payers Payer name Insurance type Covered democrat ID Vita feliz(s) [employer] Medicare BL [id number] Social History Type Description Quantity Date Captured [...] No Information Instructions Date Instruction Additional Infor сергейion Impression/Plan Related to Proli ferative diabetic retinopathy of right eye without macular edema associated with type 2 diabetes mellitus Impression/Plan Related to Epire tinal membrane (ERM) of left eye Impression/Plan Related to PVD ( posterior vitreous detachment), both eyes Impression/Plan Related to Prese nce of intraocular lens Impression/Plan Related to Inter mediate stage nonexudative age-related macular degeneration of both eyes Impression/Plan Related to Proli ferative diabetic retinopathy of left eye with macular edema associated with type 2 diabetes mellitus Diabetes, Type 2, [facility] Retinopathy Condition: chronic. - Emphasized blood sugar [...] months Related to Branch Retinal Vein Occlusion - Return in 1 month Related to B ranch Retinal Vein Occlusion Branch Retinal Vein Occlusion OS Condition: stable. - I recommend continuing with Lucentis injections to see if we can get the edema to decrease further and the vision to increase even more. Related to Branch Retinal Vein Occlusion Macular Edema OS Con dition: improving. - Significant macular edema is present. An intravitreal Lucentis .3mg injection was done without complication after discussion of risks and benefits. Patient understands that any visual problems should be reported to us promptly. Related to Macular Edema Pseudophakia OU Related to Pseud ophakia Diabetes, Type 2, wi thout Retinopathy Condition: chronic. - Emphasized blood sugar control. Related to Diabetes, Type 2, without Retinopathy - 1 month / oct/ cr .5 OS Relat ed to Macular Edema Macular Edema OS Con dition: moderate, acute, [...] above. Related to Branch Retinal Vein Occlusion Diabetes, Type 2, wi thout Retinopathy Condition: established, stable. - Patient understands the importance of compliance. Related to Diabetes, Type 2, without Retinopathy Pseudophakia OU Related to Pseud ophakia Diabetes, Type 2, wi thout Retinopathy - Encouraged compliance Related to Diabetes, Type 2, without Retinopathy Pseudophakia OU Related to Pseud ophakia Macular Edema OS Con dition: moderate, chronic. 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 Related to Branch Retinal Vein Occlusion Cataract, Nuclear OU Condition: established. Related to [...] and possible Lucentis. Related to Macular Edema - Return in 7 weeks oct pos cr .5 Related to Macular Edema Cataract, Nuclear OU [...] to us promptly. Related to Macular Edema Macular Edema OS Con dition: stable. - [...] Related to B ranch Retinal Vein Occlusion Diabetes, Type 2, wi out Retinopathy Condition: established. - Emphasized blood sugar control. Related to Diabetes, Type 2, without Retinopathy Cataract, Nuclear OU Related to Cataract, Nuclear Cataract, Nuclear OU Condition: established, worsening. Related [...] Occlusion - Return in 1 Related to [facility] h Retinal Vein Occlusion Assessments Type Assessment Date No Information Patient Care Teams Name Effective Dates (start - stop) Status Members No Information
--- OUTSIDE RECORDS SUMMARY | 2025-02-13 12:00 | XMS_ITS ---
Author Organization [facility] in [place] Address [address] [place] [address] Care Team Providers Care Folder Seamer Name Role Phone Stephanie Ley Primary Care Provider Brenda Brownlee [phone] Encounters Encounter Location Date Provider Diagnosis [facility] [place] [address] [place] [phone] 02/13/2025 Brenda Mack Plan Of Treatment Next Appt Details Provider Name:Raul Arellano, 06/27/2025 12:40:00 PM, [address] [place], [address], Progress Notes * Cuca GOODWINDOB:[birth year] (80 yo F)Acc No.[id number]:02/13/2025 UNLOCKED PROGRESS NOTE Progress Note Patient: Hemant ANTONIORameshmoe Casas Provider: KAIDEN Stewart :1945 A ge:79 Y S ex:Female Date:02/13/2025 Address:[address] [place] [id number] Pcp:Stephanie Ley Subjective: * Chief Complaints: * * Medical History: Objective: * Vitals: Assessment: Plan: * Treatment: * * Electronic signature of KAIDEN Singleton, [id number] on 06/25/2025 at 01:05 PM EDT Sign off status: Pending Visit Status: C ANC (Cancelled) * Provider: KAIDEN Stewart Date: 0 02/13/2025 Generated for Dash Farnsworth/Jose on: 0 06/25/2025 01:05 PM EDT
--- OUTSIDE RECORDS SUMMARY | 2025-06-11 00:40 | XMS_ITS | Encounter Summary ---
Author Organization [facility] tem Address [id number] [address] [place] [address] Care Team Providers Care Practical Nurse Clinical Coordinator Name Role Phone Jaylan Gray Primary Care Provider + Reason for Referral * Misc (Routine) - Pending Review Specialty Diagnoses / Procedures Referred By Contac t Referred To Contact Diagnoses UTI (urinary tract infection) Procedures Follow-up with primary care provider Jaylan Gray APRN-CNP [address], [facility] [address] [place] [address] Phone: tel: fax: Referral ID Status Reason Start Date Expiration Date V isits Requested Visits Authorized [id number] Pending Review 06/13/2025 06/13/2026 1 1 * Misc (Routine) - Pending Review Specialty Diagnoses / Procedures Referred By Contac t Referred To Contact Procedures Adult diet Jaylan Gray APRN-CNP [address], [facility] [address] [place] [address] Phone: tel: fax: Referral ID Status Reason Start Date Expiration Date V isits Requested Visits Authorized [id number] Pending Review 06/13/2025 06/13/2026 1 1 Reason for Visit * Reason Comments Weakness - Generalized Seen here earlier for weakness and UTI, pt daughter called EMS due to not being able to take care of pt because of pt being so weak. * Auth/Cert (Routine) Specialty Diagnoses / Procedures Referred By Polo t Referred To Contact Diagnoses UTI (urinary tract infection) Weakness Ildefonso Ballesteros MD [address] [facility] [place] [address] Phone: tel: fax: Referral ID Status Reason Start Date Expiration Date Visits Re quested Visits Authorized [id number] 1 1 Encounter Details Date Type Department Care Team (Latest Contact Info) Description 06/11/2025 12:40 AM EDT - 06/13/2025 3:05 PM EDT Hospital Encounter [facility] [address] [place] [address] Prem Day MD [address] [place] [address] Ildefonso Ballesteros MD [address] [facility] [place], [place] [id number] UTI (urinary tract infection) (Primary Dx) Discharge Disposition: Home Health Social History Tobacco Use Types Packs/Day Years Used Date Smoking Tobacco: Never Smokeless Tobacco: Never Alcohol Use Standard Drinks/Week Comments No 0 (1 standard drink = 0.6 oz pur e alcohol) [facility] Utilities Answer Date Recorded In the past 12 months has [employer], gas, oil, or water [employer] threatened to shut off services in your home? No 05/13/2025 Social Connection and Isolat ion Panel [NHANES] Answer Date Recorded In a typical week, how many times do you talk on the phone with family, friends, or neighbors? Never 10/28/2024 How often do you get togethe r with friends or relatives? More than three times a week 10/28/2024 How often do you attend [facility] or yazidism services? More than 4 times per year 10/28/2024 Do you belong to any clubs o r organizations such as protestant groups, unions, fraternal or athletic groups, or school groups? Yes 10/28/2024 How often do you attend meet ings of the clubs or organizations you belong to? More than 4 times per year 10/28/2024 Are you , , di vorced, , never , or living with a partner? Never 10/28/2024 AUDIT-C Answer Date Recorded Q1: How often do you have a drink containing alcohol? Never 02/15/2025 Q2: How many drinks containi ng alcohol do you have on a typical day when you are drinking? Patient does not drink Q3: How often do you have si x or more drinks on one occasion? Never 02/15/2025 Overall Financial Resource Strain (CARDIA) Answe r Date Recorded How hard is it for you to pa y for the very basics like food, housing, medical care, and heating? Somewhat hard 10/28/2024 PHQ-2 Answer Date Recorded Total Score 0 06/05/2025 [facility] - Occupational Stress Questionnaire Answer Date Recorded Do you feel stress - tense, restless, nervous, or anxious, or unable to sleep at night because your mind is troubled all the time - these days? To some extent 10/28/2024 Exercise Vital Sign Answer Date Recorde d On average, how many days pe r week do you engage in moderate to strenuous exercise (like a brisk walk)? 0 days 10/28/2024 On average, how many minutes do you engage in exercise at this level? 0 min 10/28/2024 PRAPARE - Transportation Answer Date Re corded In the past 12 months, has l ack of transportation kept you from medical appointments or from getting medications? No 04/16 In the past 12 months, has l ack of transportation kept you from meetings, work, or from getting things needed for daily living? Yes 05/13/2025 Housing Instability Answer Date Recorde d Are you worried or concerned that in the next two months you may not have stable housing that you own, rent or stay in as a part of a household? No 05/13/2025 Childcare Answer Date Recorded Do problems getting child ca re make it difficult for you to work or study? No 10/28/2024 Employment Answer Date Recorded Do you need help finding a [facility] career center and/or a training program? No 10/28/2024 Hunger Screening Answer Date Recorded Within the past 12 months we worried whether our food would run out before we got money to buy more. Never True 06/10/2025 Within the past 12 months th e food we bought just didn't last and we didn't have money to get more. Never True 06/10/2025 Purpose - Life Answer Date Recorded I have a purpose and direction in my life. Agree 10/28/2024 Comments No Sex and Gender Information Value Date Recorded Sex Assigned at Not on file Legal Sex Female 11:55 AM EDT Gender Identity Female 03/21/2020 8:20 PM EDT Sexual Orientation Straight 10/05/2022 8: 20 AM EST documented as of this encounter Last Filed Vital Signs Vital Sign Reading Time Taken Comments Blood Pressure 114/49 06/13/2025 11:01 AM EDT Pulse 88 06/13/2025 11:01 AM EDT Temperature 36.7 C (98 F) 06/13/2025 11:01 AM EDT Respiratory Rate 18 06/13/2025 11:0 1 AM EDT Oxygen Saturation 98% 06/13/2025 11: 01 AM EDT Inhaled Oxygen Concentration - - Weight 83.4 kg (183 lb 12.8 oz) 06/13/2025 6:00 AM EDT Height 165.1 cm (5' 5 ) 06/11/2025 4:21 AM EDT Body Mass Index 30.59 06/11/2025 4:21 AM EDT documented in this encounter Discharge Summaries * Ildefonso Ballesteros MD - 06/13/2025 12:04 PM EDT Images from the original note were not included. [facility] [address] [facility] [id number] Hospital Medicine Discharge Summary Patient: Cuca Dee Date of : 1945 Room: /01 Encounter date: 06/13/25 DATE OF ADMISSION: 06/11/2025 DATE OF DISCHARGE:06/13/2025 DISCHARGE DIAGNOSES Principal Problem: UTI (urinary tract infection) Active Problems: GERD without esophagitis 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 mellitus ([facility] Anemia, chronic disease Obstructive sleep apnea syndrome Essential (primary) hypertension Stage 3b chronic kidney disease ([facility]) Generalized muscle weakness Iron deficiency anemia Hypomagnesemia CONSULTANTS None PCP: Jaylan Gray, [employer] PROCEDURES None HOSPITAL COURSE SUMMARY Per HPI: Cuca Dee is a 79 y.o. female who presents with by EMS for evaluation of weakness. Was seen here earlier today and was diagnosed with a UTI she is currently on Cipro. When she got homesymptoms got worse and she is diffusely weak to the point where she can not get out of her wheelchair. Denies any falls or trauma. She has mild suprapubic abdominal tenderness. Her testing from earlier today which did not show any acute pathology. Rocephin started in emergency department. Due to worsening weakness, patient be admitted for treatment of UTI. EKG shows sinus rhythm with left bundle-branch block. CBC unchanged. CMP shows slightly elevated creatinine. BNP slightly elevated. Troponinwithin normal limits. Chest x-ray and CT brain showed no acute pathology. Patient was here she was treated with Rocephin for 3 days. Mentation returned back to baseline. Patient be discharged with 5 more days of Keflex. PT OT suggest patient go to shelter facility.Patient refusing to go to shelter facility in wants to go home with home health. Discussed with daughter who lives at home with her and takes care of her and she is okay with patient coming home with home health to resume. Concerned that PT and not followed up after retirement discharge. New referral sent. Clinical concern for sepsis, no-not clinically evident at this time. 06/13/25, Hospital Day: 3 Interval History: Status: improved. No overnight events or new complaints. Mentation back at baseline. Review of Systems Constitutional: Negative for activity change, appetite change, fatigue and unexpected weight change. HENT: Negative for trouble swallowing. Respiratory: Negative for cough, sputum production, shortness of breath and wheezing. Cardiovascular: Negative for chest pain, palpitations and leg swelling. Gastrointestinal: Negative for abdominal pain, blood in stool, melena, constipation, diarrhea, nausea and vomiting. Genitourinary: Negative for difficulty urinating. Skin: Negative for color change and wound. Neurological: Negative for dizziness, seizures, speech difficulty and headaches. Psychiatric/Behavioral: Negative for sleep disturbance. Physical Exam BP 114/49 Pulse 88 Temp 36.7 ??C (98 ??F) (Oral) Resp 18 Ht 165.1 cm (5' 5 ) Wt 83.4 kg (183 lb 12.8 oz) LMP (LMP Unknown) SpO2 98% BMI 30.59 kg/m?? Intake/Output Summary (Last 24 hours) at 06/13/2025 1204 Last data filed at 06/13/2025 0500 Gross per 24 hour Intake 1113.34 ml Output 500 ml Net 613.34 ml Constitutional: General: No acute distress. Cardiovascular: Rate and Rhythm: Normal rate and regular rhythm. Heart sounds: Normal heart sounds, S1 normal and S2 normal. Pulmonary: Effort: Pulmonary effort is normal. Breath sounds: Normal breath sounds. Musculoskeletal: Generalized weakness Right lower leg: No edema. Left lower leg: No edema. Skin: General: Skin is warm and dry. Coloration: Skin is not pale. Neurological: General: No focal deficit present. Psychiatric: Mood and Affect: Mood normal. Behavior: Behavior normal. Labs Recent Results (from the past 48 hours) Bedside Glucose *Place/Obtain serum glucose if >500 per glucometer. Collection Time: 06/11/25 2:44 PM Result Value Ref Range Bedside Glucose (POC) 151 (H) 65 - 99 mg/dL Bedside Glucose *Place/Obtain serum glucose if >500 per glucometer. Collection Time: 06/11/25 4:41 PM Result Value Ref Range Bedside Glucose (POC) 197 (H) 65 - 99 mg/dL Bedside Glucose *Place/Obtain serum glucose if >500 per glucometer. Collection Time: 06/11/25 8:50 PM Result Value Ref Range Bedside Glucose (POC) 177 (H) 65 - 99 mg/dL Comprehensive metabolic panel Collection Time: 06/12/25 4:52 AM Result Value Ref Range SODIUM 137 134 - 146 mmol/L POTASSIUM 4.1 3.5 - 5.0 mmol/L CHLORIDE 101 98 - 109 mmol/L CARBON DIOXIDE 25 22 - 32 mmol/L ANION GAP 11 5 - 15 mmol/L BLOOD UREA NITROGEN 18 5 - 27 mg/dL CREATININE 1.21 (H) 0.40 - 1.00 mg/dL GLUCOSE 157 (H) 65 - 99 mg/dL CALCIUM 8.9 8.5 - 10.5 mg/dL TOTAL PROTEIN 7.2 6.0 - 8.0 g/dL ALBUMIN 3.2 3.2 - 5.3 g/dL ALKALINE PHOSPHATASE 115 39 - 130 U/L AST 21 <=41 U/L ALT 12 <=31 U/L BILIRUBIN,TOTAL 0.6 0.3 - 1.2 mg/dL EGFR Non-Race Dependent 46 (L) >=60 ml/min/1.73sq.m Magnesium Collection Time: 06/12/25 4:52 AM Result Value Ref Range MAGNESIUM 2.4 1.8 - 2.6 mg/dL CBC auto differential Collection Time: 06/12/25 4:52 AM Result Value Ref Range WBC 7.4 4 - 11 x10E9/L RBC Count 4.11 3.8 - 5.2 X10E12/L Hemoglobin 10.9 (L) 11.7 - 15.5 g/dL Hematocrit 32.8 (L) 35 - 47 % MCV 80 80 - 100 fL MCH 26.5 (L) 27 - 34 pg MCHC 33.2 32 - 36 g/dL RDW 16.1 (H) 11.5 - 15 % Platelet Count 233 150 - 450 X10E9/L MPV 9.1 7 - 12 fL Neutrophils % 52.3 % Lymphocytes % 29.1 % Monocytes % 13.9 % Eosinophils % 3.4 % Basophils % 1.3 % Neutrophils Absolute (A) 3.9 1.5 - 6.6 10*3/uL Lymphocytes Absolute 2.2 1.0 - 3.5 10*3/uL Monocytes Absolute 1.0 (H) 0.0 - 0.9 10*3/uL Eosinophils Absolute 0.3 0.0 - 0.4 10*3/uL Basophils Absolute 0.1 0.0 - 0.2 10*3/uL Differential Type AUTOMATED DIFFERENTIAL Bedside Glucose *Place/Obtain serum glucose if >500 per glucometer. Collection Time: 06/12/25 7:58 AM Result Value Ref Range Bedside Glucose (POC) 184 (H) 65 - 99 mg/dL Bedside Glucose *Place/Obtain serum glucose if >500 per glucometer. Collection Time: 06/12/25 12:02 PM Result Value Ref Range Bedside Glucose (POC) 262 (H) 65 - 99 mg/dL Bedside Glucose *Place/Obtain serum glucose if >500 per glucometer. Collection Time: 06/12/25 4:38 PM Result Value Ref Range Bedside Glucose (POC) 229 (H) 65 - 99 mg/dL Bedside Glucose *Place/Obtain serum glucose if >500 per glucometer. Collection Time: 06/12/25 9:08 PM Result Value Ref Range Bedside Glucose (POC) 229 (H) 65 - 99 mg/dL Urinalysis Collection Time: 06/13/25 1:01 AM Specimen: Urine, Clean Catch Midstream Result Value Ref Range COLOR Yellow Yellow TURBIDITY Clear Clear SPECIFIC GRAVITY 1.025 1.003 - 1.035 NITRITE Negative Negative PH,URINE 6.0 5.0 - 8.5 LEUKOCYTE ESTERASE Negative Negative PROTEIN Trace (A) Negative KETONES (URINE) Negative Negative UROBILINOGEN 0.2 eu/dL 0.2 eu/dL, 1.0 eu/dL BILIRUBIN (URINE) Negative Negative BLOOD/HGB Negative Negative MUCOUS Present (A) None GLUCOSE (URINE) Negative Negative, 250 mg/dL Comprehensive metabolic panel Collection Time: 06/13/25 5:44 AM Result Value Ref Range SODIUM 140 134 - 146 mmol/L POTASSIUM 3.8 3.5 - 5.0 mmol/L CHLORIDE 106 98 - 109 mmol/L CARBON DIOXIDE 26 22 - 32 mmol/L ANION GAP 8 5 - 15 mmol/L BLOOD UREA NITROGEN 18 5 - 27 mg/dL CREATININE 1.28 (H) 0.40 - 1.00 mg/dL GLUCOSE 160 (H) 65 - 99 mg/dL CALCIUM 8.8 8.5 - 10.5 mg/dL TOTAL PROTEIN 6.3 6.0 - 8.0 g/dL ALBUMIN 2.9 (L) 3.2 - 5.3 g/dL ALKALINE PHOSPHATASE 104 39 - 130 U/L AST 14 <=41 U/L ALT 8 <=31 U/L BILIRUBIN,TOTAL 0.3 0.3 - 1.2 mg/dL EGFR Non-Race Dependent 43 (L) >=60 ml/min/1.73sq.m Magnesium Collection Time: 06/13/25 5:44 AM Result Value Ref Range MAGNESIUM 2.0 1.8 - 2.6 mg/dL CBC auto differential Collection Time: 06/13/25 5:44 AM Result Value Ref Range WBC 6.8 4 - 11 x10E9/L RBC Count 3.45 (L) 3.8 - 5.2 X10E12/L Hemoglobin 9.2 (L) 11.7 - 15.5 g/dL Hematocrit 28.0 (L) 35 - 47 % MCV 81 80 - 100 fL MCH 26.7 (L) 27 - 34 pg MCHC 33.0 32 - 36 g/dL RDW 16.5 (H) 11.5 - 15 % Platelet Count 226 150 - 450 X10E9/L MPV 8.2 7 - 12 fL Neutrophils % 50.3 % Lymphocytes % 31.9 % Monocytes % 12.4 % Eosinophils % 4.0 % Basophils % 1.4 % Neutrophils Absolute (A) 3.4 1.5 - 6.6 10*3/uL Lymphocytes Absolute 2.2 1.0 - 3.5 10*3/uL Monocytes Absolute 0.8 0.0 - 0.9 10*3/uL Eosinophils Absolute 0.3 0.0 - 0.4 10*3/uL Basophils Absolute 0.1 0.0 - 0.2 10*3/uL Differential Type AUTOMATED DIFFERENTIAL Extra Tubes Collection Time: 06/13/25 5:44 AM Narrative The following orders were created for panel order Extra Tubes. Procedure Abnormality Status --------- ------ Light Blue Top[[id number]] Final result Please view results for these tests on the individual orders. Light Blue Top Collection Time: 06/13/25 5:44 AM Result Value Ref Range Extra Tube Auto Resulted Bedside Glucose *Place/Obtain serum glucose if >500 per glucometer. Collection Time: 06/13/25 11:04 AM Result Value Ref Range Bedside Glucose (POC) 336 (H) 65 - 99 mg/dL Radiology CT abdomen and pelvis without contrast Result Date: 06/11/2025 Narrative: CT ABDOMEN AND PELVIS WITHOUT INTRAVENOUS CONTRAST HISTORY: Generalized weakness, flank pain COMPARISON: 01/10/2025 TECHNIQUE: Axial images through the abdomen and pelvis obtained with coronal and sagittal reformatted images. FINDINGS: Visualized lung bases are unremarkable. The liver, gal lbladder, spleen, adrenal glands, pancreas, and kidneys are unremarkable. No enlarged abdominal or pelvic lymph nodes. Small fat-containing left inguinal hernia. Small left lateral bladder diverticulum. Left ovarian cystic lesion measuring approximately 6.6 cm, similar to previous study. Small amount of free fluid in the pelvis. There are foci of air within the endometrial cavity. Shunt tubing terminates in the left abdomen. Normal appendix. The small and large bowel are of normal caliber with no evidence of bowel wall thickening. Innumerable lytic lesions scattered throughout the spine and pelvis with compression deformity of L1 vertebral body. These have worsened since previous study. There is a pathologic fracture of the right greater trochanter and right lesser trochanter. IMPRESSION:* No acute abnormalities in the abdomen/pelvis. * Large left ovarian cystic lesion is unchanged. Small amount of free fluid in the pelvis present as well. * Foci of air within the endometrial cavity, nonspecific. Correlate for recent endometrial biopsy/procedure. Differential consideration would include endometritis. 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 Pathologic fractures of the right greater and lesser trochanters. All CT scans at this facility use dose modulation, iterative reconstruction, and/or weight based dosing when appropriate to reduce radiation dose to as low as reasonably achievable. Finalized by MD Rabia on 06/11/2025 2:23 AM X-ray chest 1 view Result Date: 06/11/2025 Narrative: XR CHEST 1 VW HISTORY: Weakness COMPARISON: Chest radiograph 06/08/2025, 05/13/2025, and 04/28/1985. FINDINGS: The trachea is midline. Stable cardiomediastinal silhouette. No pneumothorax or pleural effusion. No focal consolidation. Right ventriculoperitoneal shunt tubing appears stable. IMP RESSION: * No radiographic evidence of acute pulmonary process. Approved by Resident Javier Sanchez MD on 06/11/2025 2:15 AM IRyan MD have personally reviewed the image(s) and agree with and/or edited the report Finalized by Ryan Dominguez MD on 06/11/2025 2:18 AM X-ray chest 1 view Result Date: 06/08/2025 Narrative: Single view chest History: Fatigue Comparison: X-ray 05/13/2025 Findings: Single portableview of the chest. Cardiomediastinal silhouette and pulmonary vasculature are within normal limits.Lungs and pleural space are clear. There is no pleural effusion or pneumothorax. Impression: No acute cardiopulmonary process. Finalized by Jason Bryan on 06/08/2025 8:56 AM X-ray pelvis 1 or 2 views Result Date: 06/06/2025 Narrative: Imaging Result: AP Pelvis Osteopenia noted Mild distraction of less trochanteric avulsion fracture. Soft tissue vascular calcifications are prominent No effusion. Remote sclerotic changes from pubic ramus fracture bilaterally with mild degenerative changes of hip Impression: stable appearing right hip lesser trochanteric avulsion fracture. X-ray hip right 2-3 views with or without pelvis Result Date: 05/30/2025 Narrative: History: Pain Exam/Technique: AP pelvis and AP and crosstable lateral views of the righthip were obtained. Comparison: Comparison made to a CT of the right hip dated 05/13/2025 Findings: Adisplaced fracture of the lesser trochanter is again seen. There is an old fracture of the inferiorpubic rami bilaterally. There is no evidence for an acute osseous abnormality. The remaining visualized osseous structures are intact. IMPRESSION: Stable displaced fracture of the lesser trochanter, unchanged from the previous examination 05/13/2025. There is no evidence for an acute fracture. Finalized by Johnathan Zheng MD on 05/30/2025 12:[address] brain without contrast Result Date: 05/22/2025 Narrative: CT HEAD WO IV CONTRAST HISTORY: Normal pressure hydrocephalus COMPARISON: CT head 03/16/2024 TECHNIQUE: CT brain without intravenous contrast. Automated exposure control was utilized. All CT scans at this facility use dose modulation, iterative reconstruction, and/or weight based dosing when appropriate to reduce radiation dose to as low as reasonably achievable. FINDINGS: Redemonstrated right frontal shunt with tip terminating near the anterior portion of the septum pellucidum. The ventricles are enlarged bilaterally but are stable in appearance compared to 03/16/2024. No midline s hift, mass effect, acute intracranial hemorrhage, or evidence of acute large vessel ischemia/infarct. Chronic encephalomalacia of the right frontal lobe which is chronic and most likely due to shunt placement. Normal attenuation of the cerebral parenchyma. Brainstem and cerebellum are unremarkable.Visualized intraorbital contents and the infratemporal soft tissues show no acute abnormality. The visualized paranasal sinuses and mastoid air cells are clear. Osseous structures in skull base and calvarium show no acute abnormality. Impression: * Similar appearance and placement of right frontal shunt placement. * Ventriculomegalywhich correlates with patient's known normal pressure hydrocephalus. No significant interval changecompared to prior examination. * No evidence of acute intracranial abnormality. Approved by:Jason Sanchez05/22/2025 9:45 AM. I, Srinivas Ferrara,have reviewed the image(s) and agree with the findings in this report. Electronically signed: Srinivas Ferrara. Xr GENERAL MAINTENANCE ENGINEER Shunt Series Result Date: 05/22/2025 Narrative: XR GENERAL MAINTENANCE ENGINEER SHUNT SERIES: 05/22/2025 PROVIDED HISTORY: * 79 years old Female * one year follow up kinking or discontinuity of shunt tubing, needs CT brain same day. COMPARISON: The GENERAL MAINTENANCE ENGINEER shunt [id number] TECHNIQUE: A total of five views of the head, chest, abdomen and pelvis were obtained. Findings: Right frontal approach ventriculostomy catheter tubing terminating in the midline, with catheter tubing coursing along the right neck, right upper hemithorax, crossing the midline to extend along the left parasternal border, within within the left hemiabdomen to terminate in the upper pelvis. No evidence of transection of kinking, with limited evaluation region of looping. Prosthetic aortic valve. Codman Hakim programmable ventriculostomy set at approximately 130-140, similar to prior. Impression: Impression: Ventriculostomy catheter tubing without evidence of acute complication, though evaluation limited due to looped configuration overlying the left hemiabdomen. Electronically signed: Doug Funes. CT brain without contrast Result Date: 05/14/2025 Narrative: STUDY: CT HEAD WITHOUT CONTRAST CLINICAL HISTORY: AMS Altered mental status COMPARISON: April 28 Procedure: Multi-detector CT performed through the brain without IV contrast. The lack of IVcontrast limits evaluation for acute infarct, mass, infectious process,or demyelinating disease.Automated exposure control was utilized. Findings: Prominent ventricles and right ventricular shunt catheter similar in appearance to prior study. There is no new intracranial hemorrhage, extra-axial fluid collection, or mass effect. Dunham-white matter differentiation is appropriate. Infarcts and massesmay be occult on CT, but grossly no acute infarct identified There is no midline shift. IMPRESSION:* No acute change. Consider brain MRI if you suspect occult process. All CT scans at this facility use dose modulation, iterative reconstruction, and/or weight based dosing when appropriate to reduceradiation dose to as low as reasonably achievable. Finalized by Blu Miller MD on 05/14/2025 12:24 PM DISCHARGE ASSESSMENT & PLAN Keflex 500 mg b.i.d. for 5 more days. DISCHARGE INSTRUCTION Disposition: Home with homecare Condition: Good Activity: activity as tolerated Diet: Adult diet Regular Texture; Consistent Carb 255 grams (2000 kcal); No Added Salt (3-4 gm Sodium); Low Fat/Low Cholesterol Adult diet Follow up: KAID[facility] Hopkins within 7-14 days. Labs/Imaging/Pathology: None Discharge Medications: Medication List CHANGE how you take these medications Instructions Last Dose Given Next Dose Due traZODone 100 mg tablet Commonly known as: DESYREL What changed: how much to take how to take this when to take this TAKE 1 TABLET BY MOUTH EVERY DAY AT NIGHT CONTINUE taking these medications Instructions Last Dose Given Next Dose Due acetaminophen 500 mg tablet Commonly known as: TYLENOL EXTRA STRENGTH Take 2 tablets (1,000 mg total) by mouth every 6 (six) hours as needed for pain. CEPHalexin 500 mg capsule Commonly known as: KEFLEX Take 1 capsule (500 mg total) by mouth in the morning and 1 capsule (500 mg total) before bedtime. Do all this for 5 days. cyanocobalamin 1000 MCG tablet Take 1 tablet (1,000 mcg total) by mouth in the morning. ferrous sulfate 325 (65 FE) MG tablet Take 1 tablet (325 mg total) by mouth daily with breakfast. furosemide 20 mg tablet Commonly known as: LASIX Take 1 tablet (20 mg total) by mouth daily. * gabapentin 300 mg capsule Commonly known as: NEURONTIN Take 2 capsules (600 mg total) by mouth nightly. * gabapentin 300 mg capsule Commonly known as: NEURONTIN Take 1 capsule (300 mg total) by mouth in the morning. insulin lispro 100 unit/mL insulin pen Commonly known as: HumaLOG Inject 2-10 Units under the skin 4 (four) times a day with meals and nightly. 151-200 mg/dL, give 2units. 201-250 mg/dL, give 4 units. 251-300 mg/dL, give 6 units. 301-350 mg/dL, give 8 units 351-400 mg/dL, give 10 units letrozole 2.5 mg chemo tablet Commonly known as: FEMARA Take 1 tablet by mouth daily lidocaine 4 % Commonly known as: SALONPAS Place 1 patch on the skin daily. mirtazapine 7.5 mg tablet Commonly known as: REMERON Take 1 tablet (7.5 mg total) by mouth nightly. nystatin powder Commonly known as: MYCOSTATIN Apply 1 Application topically in the morning and 1 Application at noon and 1 Application in the evening and 1 Application before bedtime. sertraline 100 mg tablet Commonly known as: ZOLOFT Take 1 tablet (100 mg total) by mouth in the morning. * This list has 2 medication(s) that are the same as other medications prescribed for you. Read thedirections carefully, and ask your doctor or other care provider to review them with you. Where to Get Your Medications These medications were sent to [id number] [id number] CEPHalexin 500 mg capsule >30 minutes were spent on discharging this patient. KAIDEN Hopkins, 06/13/2025 12:04 PM [facility] 7AM-7PM & 7PM-7AM: EpicChat or page through On-Call Finder. Physician Attestation: I have reviewed the above note authored by the Advance Practice Provider (PROMISE) including history, review of systems, physical examination, medical decision making and agree with the assessment & plan. I have personally performed a face to face diagnostic evaluation on this patient. I have reviewed all laboratory findings and imaging reports/films. I have independently evaluated the patient and repeated hoffmann portions of the physical exam. I agree with the PROMISE plan as above, unless otherwise noted. ILDEFONSO BALLESTEROS MD documented in this encounter Medications at Time of Discharge acetaminophen (TYLENOL) 500 mg tablet Take 2 tablets (1,000 mg total) by mouth every 6 (six) hours as needed for pain. cyanocobalamin 1000 MCG tablet Take 1 tablet (1,000 mcg total) by mouth in the morning. 02/25/2025 ferrous sulfate 325 (65 FE) MG tablet Take 1 tablet (325 mg total) by mouth daily with breakfast. 05/16/2025 furosemide (LASIX) 20 mg tablet Take 1 tablet (20 mg total) by mouth daily. 05/16/2025 gabapentin (NEURONTIN) 300 mg capsule Take 2 capsules (600 mg total) by mouth nightly. 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 02/24/2025 insulin lispro (HumaLOG) 100 unit/mL insulin pen Inject 2-10 Units under the skin 4 (four) times a day with meals and nightly. 151-200 mg/dL, give 2 units. 201-250 mg/dL, give 4 units. 251-300 mg/dL, give 6 units. 301-350 mg/dL, give 8 units 351-400 mg/dL, give 10 units 15 mL 12 02/24/2025 letrozole (FEMARA) 2.5 mg chemo tablet Take 1 tablet by mouth daily 90 tablet 3 01/25/2025 lidocaine (SALONPAS) 4 % Place 1 patch on the skin daily. 30 patch 05/29/2025 mirtazapine (REMERON) 7.5 mg tabletIndications :Insomnia, unspecified type Take 1 tablet (7.5 mg total) by mouth nightly. 90 tablet 1 01/22/2025 nystatin (MYCOSTATIN) powderIndications :Fabby infection of flexural skin Apply 1 Application topically in the morning and 1 Application at noon and 1 Application in the evening and 1 Application before bedtime. 60 g 1 09/06/2024 sertraline (ZOLOFT) 100 mg tablet Take 1 tablet (100 mg total) by mouth in the morning. 01/28/2025 traZODone (DESYREL) 100 mg tabletIndications :Insomnia, unspecified type TAKE 1 TABLET BY MOUTH EVERY DAY AT NIGHT 90 tablet 1 11/28/2024 CEPHalexin (KEFLEX) 500 mg capsule Take 1 capsule (500 mg total) by mouth in the morning and 1 capsule (500 mg total) before bedtime. Do all this for 5 days. 10 capsule 06/13/2025 documented as of this encounter Progress Notes * Ildefonso Ballesteros MD - 06/12/2025 4:39 PM EDT Images from the original note were not included. [facility] INTERNAL MEDICINE [facility] [address] [facility] [id number] Hospital Medicine Progress Note Patient: Cuca Dee Date of : 1945 Room: PCP: KAIDEN Hopkins Admission date: 06/11/2025 12:40 AM Encounter date: 06/12/25 SUBJECTIVE Chief complaints: Chief Complaint Patient presents with Weakness - Generalized Seen here earlier for weakness and UTI, pt daughter called EMS due to not being able to take care of pt because of pt being so weak. Interval History: Status: improved. No overnight events or new complaints. Mentation back to baseline. No further confusion. Review of Systems Review of Systems Constitutional: Negative for activity change, appetite change, chills, diaphoresis, fatigue and fever. HENT: Negative for tinnitus and trouble swallowing. Respiratory: Negative for cough, chest tightness, shortness of breath and wheezing. Cardiovascular: Negative for chest pain, palpitations and leg swelling. Gastrointestinal: Negative for abdominal pain, diarrhea, nausea and vomiting. Genitourinary: Negative for difficulty urinating. Musculoskeletal: Negative for gait problem. Skin: Negative for rash. Neurological: Negative for dizziness, syncope, speech difficulty, weakness, light-headedness, numbness and headaches. Psychiatric/Behavioral: Negative for sleep disturbance. OBJECTIVE BP 101/41 Pulse 75 Temp 37.3 ??C (99.1 ??F) (Oral) Resp 18 Ht 165.1 cm (5' 5 ) Wt 80.7 kg(178 lb) LMP (LMP Unknown) SpO2 91% BMI 29.62 kg/m?? Intake/Output Summary (Last 24 hours) at 06/12/2025 1640 Last data filed at 06/12/2025 1300 Gross per 24 hour Intake 600 ml Output 125 ml Net 475 ml Physical Exam Physical Exam Vitals and nursing note reviewed. Constitutional: General: She is not in acute distress. HENT: Head: Normocephalic and atraumatic. Right Ear: External ear normal. Left Ear: External ear normal. Nose: Nose normal. Mouth/Throat: Mouth: Mucous membranes are moist. Pharynx: Oropharynx is clear. Eyes: Extraocular Movements: Extraocular movements intact. Pupils: Pupils are equal, round, and reactive to light. Neck: Vascular: No carotid bruit or JVD. Cardiovascular: Rate and Rhythm: Normal rate and regular rhythm. Pulses: Normal pulses. Pulmonary: Effort: Pulmonary effort is normal. Breath sounds: Normal breath sounds. Abdominal: General: Bowel sounds are normal. Palpations: Abdomen is soft. Tenderness: There is no abdominal tenderness. There is no right CVA tenderness or left CVA tenderness. Musculoskeletal: Right lower leg: No edema. Left lower leg: No edema. Lymphadenopathy: Cervical: No cervical adenopathy. Skin: General: Skin is warm and dry. Capillary Refill: Capillary refill takes less than 2 seconds. Neurological: General: No focal deficit present. Mental Status: She is alert and oriented to person, place, and time. Mental status is at baseline. Motor: Weakness present. Gait: Gait abnormal. Psychiatric: Mood and Affect: Mood normal. Behavior: Behavior normal. Thought Content: Thought content normal. Judgment: Judgment normal. Medications Scheduled: cefTRIAXone (ROCEPHIN) IV, 2,000 mg, intravenous, Q24H cyanocobalamin, 1,000 mcg, oral, Daily ferrous sulfate, 325 mg, oral, Daily with breakfast gabapentin, 300 mg, oral, Daily gabapentin, 600 mg, oral, Nightly heparin (porcine), 5,000 Units, subcutaneous, Q8H DALTON insulin lispro, 2-10 Units, subcutaneous, TID with meals insulin lispro, 2-8 Units, subcutaneous, Nightly letrozole, 2.5 mg, oral, Daily mirtazapine, 7.5 mg, oral, Nightly sertraline, 100 mg, oral, Daily traZODone, 100 mg, oral, Nightly Infusions: dextrose 5 % in water, 100 mL/hr sodium chloride 0.9 %, 20 mL/hr sodium chloride 0.9 %, 75 mL/hr, Last Rate: 75 mL/hr (06/12/25 0801) As Needed: acetaminophen alum-mag hydroxide-simeth dextrose dextrose 5 % in water dextrose 50 % in water (D50W) glucagon (human recombinant) magnesium sulfate magnesium sulfate ondansetron potassium chloride OR potassium chloride OR potassium chloride IV (Adult) sennosides-docusate sodium sodium chloride sodium chloride sodium chloride 0.9 % Allergies: Patient has no known allergies. Labs Recent Results (from the past 24 hours) Bedside Glucose *Place/Obtain serum glucose if >500 per glucometer. Collection Time: 06/11/25 4:41 PM Result Value Ref Range Bedside Glucose (POC) 197 (H) 65 - 99 mg/dL Bedside Glucose *Place/Obtain serum glucose if >500 per glucometer. Collection Time: 06/11/25 8:50 PM Result Value Ref Range Bedside Glucose (POC) 177 (H) 65 - 99 mg/dL Comprehensive metabolic panel Collection Time: 06/12/25 4:52 AM Result Value Ref Range SODIUM 137 134 - 146 mmol/L POTASSIUM 4.1 3.5 - 5.0 mmol/L CHLORIDE 101 98 - 109 mmol/L CARBON DIOXIDE 25 22 - 32 mmol/L ANION GAP 11 5 - 15 mmol/L BLOOD UREA NITROGEN 18 5 - 27 mg/dL CREATININE 1.21 (H) 0.40 - 1.00 mg/dL GLUCOSE 157 (H) 65 - 99 mg/dL CALCIUM 8.9 8.5 - 10.5 mg/dL TOTAL PROTEIN 7.2 6.0 - 8.0 g/dL ALBUMIN 3.2 3.2 - 5.3 g/dL ALKALINE PHOSPHATASE 115 39 - 130 U/L AST 21 <=41 U/L ALT 12 <=31 U/L BILIRUBIN,TOTAL 0.6 0.3 - 1.2 mg/dL EGFR Non-Race Dependent 46 (L) >=60 ml/min/1.73sq.m Magnesium Collection Time: 06/12/25 4:52 AM Result Value Ref Range MAGNESIUM 2.4 1.8 - 2.6 mg/dL CBC auto differential Collection Time: 06/12/25 4:52 AM Result Value Ref Range WBC 7.4 4 - 11 x10E9/L RBC Count 4.11 3.8 - 5.2 X10E12/L Hemoglobin 10.9 (L) 11.7 - 15.5 g/dL Hematocrit 32.8 (L) 35 - 47 % MCV 80 80 - 100 fL MCH 26.5 (L) 27 - 34 pg MCHC 33.2 32 - 36 g/dL RDW 16.1 (H) 11.5 - 15 % Platelet Count 233 150 - 450 X10E9/L MPV 9.1 7 - 12 fL Neutrophils % 52.3 % Lymphocytes % 29.1 % Monocytes % 13.9 % Eosinophils % 3.4 % Basophils % 1.3 % Neutrophils Absolute (A) 3.9 1.5 - 6.6 10*3/uL Lymphocytes Absolute 2.2 1.0 - 3.5 10*3/uL Monocytes Absolute 1.0 (H) 0.0 - 0.9 10*3/uL Eosinophils Absolute 0.3 0.0 - 0.4 10*3/uL Basophils Absolute 0.1 0.0 - 0.2 10*3/uL Differential Type AUTOMATED DIFFERENTIAL Bedside Glucose *Place/Obtain serum glucose if >500 per glucometer. Collection Time: 06/12/25 7:58 AM Result Value Ref Range Bedside Glucose (POC) 184 (H) 65 - 99 mg/dL Bedside Glucose *Place/Obtain serum glucose if >500 per glucometer. Collection Time: 06/12/25 12:02 PM Result Value Ref Range Bedside Glucose (POC) 262 (H) 65 - 99 mg/dL Radiology CT abdomen and pelvis without contrast Result Date: 06/11/2025 Narrative: CT ABDOMEN AND PELVIS WITHOUT INTRAVENOUS CONTRAST HISTORY: Generalized weakness, flank pain COMPARISON: 01/10/2025 TECHNIQUE: Axial images through the abdomen and pelvis obtained with coronal and sagittal reformatted images. FINDINGS: Visualized lung bases are unremarkable. The liver, gal lbladder, spleen, adrenal glands, pancreas, and kidneys are unremarkable. No enlarged abdominal or pelvic lymph nodes. Small fat-containing left inguinal hernia. Small left lateral bladder diverticulum. Left ovarian cystic lesion measuring approximately 6.6 cm, similar to previous study. Small amount of free fluid in the pelvis. There are foci of air within the endometrial cavity. Shunt tubing terminates in the left abdomen. Normal appendix. The small and large bowel are of normal caliber with no evidence of bowel wall thickening. Innumerable lytic lesions scattered throughout the spine and pelvis with compression deformity of L1 vertebral body. These have worsened since previous study. There is a pathologic fracture of the right greater trochanter and right lesser trochanter. IMPRESSION:* No acute abnormalities in the abdomen/pelvis. * Large left ovarian cystic lesion is unchanged. Small amount of free fluid in the pelvis present as well. * Foci of air within the endometrial cavity, nonspecific. Correlate for recent endometrial biopsy/procedure. Differential consideration would include endometritis. 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 Pathologic fractures of the right greater and lesser trochanters. All CT scans at this facility use dose modulation, iterative reconstruction, and/or weight based dosing when appropriate to reduce radiation dose to as low as reasonably achievable. Finalized by MD Rabia on 06/11/2025 2:23 AM X-ray chest 1 view Result Date: 06/11/2025 Narrative: XR CHEST 1 VW HISTORY: Weakness COMPARISON: Chest radiograph 06/08/2025, 05/13/2025, and 04/28/1985. FINDINGS: The trachea is midline. Stable cardiomediastinal silhouette. No pneumothorax or pleural effusion. No focal consolidation. Right ventriculoperitoneal shunt tubing appears stable. IMP RESSION: * No radiographic evidence of acute pulmonary process. Approved by Resident Javier Sanchez MD on 06/11/2025 2:15 AM I, Ryan Dominguez MD have personally reviewed the image(s) and agree with and/or edited the report Finalized by Ryan Dominguez MD on 06/11/2025 2:18 AM X-ray chest 1 view Result Date: 06/08/2025 Narrative: Single view chest History: Fatigue Comparison: X-ray 05/13/2025 Findings: Single portableview of the chest. Cardiomediastinal silhouette and pulmonary vasculature are within normal limits.Lungs and pleural space are clear. There is no pleural effusion or pneumothorax. Impression: No acute cardiopulmonary process. Finalized by Jason Bryan on 06/08/2025 8:56 AM X-ray pelvis 1 or 2 views Result Date: 06/06/2025 Narrative: Imaging Result: AP Pelvis Osteopenia noted Mild distraction of less trochanteric avulsion fracture. Soft tissue vascular calcifications are prominent No effusion. Remote sclerotic changes from pubic ramus fracture bilaterally with mild degenerative changes of hip Impression: stable appearing right hip lesser trochanteric avulsion fracture. X-ray hip right 2-3 views with or without pelvis Result Date: 05/30/2025 Narrative: History: Pain Exam/Technique: AP pelvis and AP and crosstable lateral views of the righthip were obtained. Comparison: Comparison made to a CT of the right hip dated 05/13/2025 Findings: Adisplaced fracture of the lesser trochanter is again seen. There is an old fracture of the inferiorpubic rami bilaterally. There is no evidence for an acute osseous abnormality. The remaining visualized osseous structures are intact. IMPRESSION: Stable displaced fracture of the lesser trochanter, unchanged from the previous examination 05/13/2025. There is no evidence for an acute fracture. Finalized by Johnathan Zheng MD on 05/30/2025 12:[address] brain without contrast Result Date: 05/22/2025 Narrative: CT HEAD WO IV CONTRAST HISTORY: Normal pressure hydrocephalus COMPARISON: CT head 03/16/2024 TECHNIQUE: CT brain without intravenous contrast. Automated exposure control was utilized. All CT scans at this facility use dose modulation, iterative reconstruction, and/or weight based dosing when appropriate to reduce radiation dose to as low as reasonably achievable. FINDINGS: Redemonstrated right frontal shunt with tip terminating near the anterior portion of the septum pellucidum. The ventricles are enlarged bilaterally but are stable in appearance compared to 03/16/2024. No midline s hift, mass effect, acute intracranial hemorrhage, or evidence of acute large vessel ischemia/infarct. Chronic encephalomalacia of the right frontal lobe which is chronic and most likely due to shunt placement. Normal attenuation of the cerebral parenchyma. Brainstem and cerebellum are unremarkable.Visualized intraorbital contents and the infratemporal soft tissues show no acute abnormality. The visualized paranasal sinuses and mastoid air cells are clear. Osseous structures in skull base and calvarium show no acute abnormality. Impression: * Similar appearance and placement of right frontal shunt placement. * Ventriculomegalywhich correlates with patient's known normal pressure hydrocephalus. No significant interval changecompared to prior examination. * No evidence of acute intracranial abnormality. Approved by:Jason Sanchez05/22/2025 9:45 AM. I, Srinivas Ferrara,have reviewed the image(s) and agree with the findings in this report. Electronically signed: Srinivas Ferrara. Xr GENERAL MAINTENANCE ENGINEER Shunt Series Result Date: 05/22/2025 Narrative: XR GENERAL MAINTENANCE ENGINEER SHUNT SERIES: 05/22/2025 PROVIDED HISTORY: * 79 years old Female * one year follow up kinking or discontinuity of shunt tubing, needs CT brain same day. COMPARISON: The GENERAL MAINTENANCE ENGINEER shunt [id number]/03/2024 TECHNIQUE: A total of five views of the head, chest, abdomen and pelvis were obtained. Findings: Right frontal approach ventriculostomy catheter tubing terminating in the midline, with catheter tubing coursing along the right neck, right upper hemithorax, crossing the midline to extend along the left parasternal border, within within the left hemiabdomen to terminate in the upper pelvis. No evidence of transection of kinking, with limited evaluation region of looping. Prosthetic aortic valve. Codman Hakim programmable ventriculostomy set at approximately 130-140, similar to prior. Impression: Impression: Ventriculostomy catheter tubing without evidence of acute complication, though evaluation limited due to looped configuration overlying the left hemiabdomen. Electronically signed: Doug Funes. CT brain without contrast Result Date: 05/14/2025 Narrative: STUDY: CT HEAD WITHOUT CONTRAST CLINICAL HISTORY: AMS Altered mental status COMPARISON: April 28 Procedure: Multi-detector CT performed through the brain without IV contrast. The lack of IVcontrast limits evaluation for acute infarct, mass, infectious process,or demyelinating disease.Automated exposure control was utilized. Findings: Prominent ventricles and right ventricular shunt catheter similar in appearance to prior study. There is no new intracranial hemorrhage, extra-axial fluid collection, or mass effect. Dunham-white matter differentiation is appropriate. Infarcts and massesmay be occult on CT, but grossly no acute infarct identified There is no midline shift. IMPRESSION:* No acute change. Consider brain MRI if you suspect occult process. All CT scans at this facility use dose modulation, iterative reconstruction, and/or weight based dosing when appropriate to reduceradiation dose to as low as reasonably achievable. 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 Discontinue Rocephin 2 g started on 06/11/2025. Discontinue Normal saline. Euvolemic. Monitor for fluid overload with daily weights and I&Os. Start Keflex. GERD: Maalox as needed. No symptoms at this time. Dm type 2 with neuropathy: Continue home Lantus. Monitor blood glucose a.c. and HS cover sliding scale insulin. Continue home dose gabapentin. Anemia: Secondary to CKD 3. Hemoglobin stable. Continue home ferrous sulfate. Monitor hemoglobin daily. Obstructive sleep apnea: Encouraged home PAP use. Hypertension: Normotensive. Not on medications at home. Continue to monitor. CKD 3B: Kidney function at baseline. Continue IV fluids for 1 day. Plan to restart home Lasix tomorrow. Generalized muscle weakness: PT OT to see. Hypomagnesemia: Supplement. Monitor electrolytes daily replace per protocol. DVT px: Heparin subQ. DC planning: Discharge to shelter facility likely tomorrow.. Sepsis suspected, no-not clinically evident at this time. KAIDEN Hopkins, 06/12/2025 4:40 PM [facility] 7AM-7PM & 7PM-7AM: EpicChat or page through On-Call Finder. Physician Attestation: I have reviewed the above note authored by the Advance Practice Provider (PROMISE) including history, review of systems, physical examination, medical decision making and agree with the assessment & plan. I have personally performed a face to face diagnostic evaluation on this patient. I have reviewed all laboratory findings and imaging reports/films. I have independently evaluated the patient and repeated hoffmann portions of the physical exam. I agree with the PROMISE plan as above, unless otherwise noted. ILDEFONSO BALLESTEROS MD documented in this encounter H&P Notes * Ildefonso Ballesteros MD - 06/11/2025 9:02 AM EDT Images from the original note were not included. [facility] INTER[facility] MEDICINE [facility] [address] [facility] [id number] Hospital Medicine History & Physical Patient: Cuca Dee Date of : 1945 Room: [facility] [place]/02 PCP: KAIDEN Hopkins Admission date: 06/11/2025 12:40 AM Encounter date: 06/11/25 Hospital Day: 1 SUBJECTIVE Cuca Dee is a 79 y.o. female who presents with by EMS for evaluation of weakness. Was seen here earlier today and was diagnosed with a UTI she is currently on Cipro. When she got home symptomsgot worse and she is diffusely weak to the point where she can not get out of her wheelchair. Denies any falls or trauma. She has mild suprapubic abdominal tenderness. Her testing from earlier today which did not show any acute pathology. Rocephin started in emergency department. Due to worsening weakness, patient be admitted for treatment of UTI. EKG shows sinus rhythm with left bundle-branch block. CBC unchanged. CMP shows slightly elevated creatinine. BNP slightly elevated. Troponin within normal limits. Chest x-ray and CT brain showed no acute pathology. Allergies: Patient has no known allergies. Prior to Admission medications Medication Sig Start Date End Date Taking? Authorizing Provider acetaminophen (TYLENOL) 500 mg tablet Take 2 tablets (1,000 mg total) by mouth every 6 (six) hours as needed for pain. Not In System Ref Prov CEPHalexin (KEFLEX) 500 mg capsule Take 1 capsule (500 mg total) by mouth in the morning and 1 capsule (500 mg total) before bedtime. Do all this for 7 days. 06/08/25 06/15/25 Sasha Ayala MD cyanocobalamin 1000 MCG tablet Take 1 tablet (1,000 mcg total) by mouth in the morning. 02/25/25 KAIDEN Jain ferrous sulfate 325 (65 FE) MG tablet Take 1 tablet (325 mg total) by mouth daily with breakfast. 05/16/25 KAIDEN Hopkins furosemide (LASIX) 20 mg tablet Take 1 tablet (20 mg total) by mouth daily. 05/16/25 KAIDEN Hopkins gabapentin (NEURONTIN) 300 mg capsule Take 2 capsules (600 mg total) by mouth nightly. Not In System Ref Prov gabapentin (NEURONTIN) 300 mg capsule Take 1 capsule (300 mg total) by mouth in the morning. 02/24/25 KAIDEN Jain insulin detemir U-100 (LEVEMIR) 100 unit/mL (3 mL) insulin pen Inject 15 Units under the skin nightly. Patient not taking: Reported on 05/13/2025 08/24/24 KAIDEN Hopkins insulin lispro (HumaLOG) 100 unit/mL insulin pen Inject 2-10 Units under the skin 4 (four) times a day with meals and nightly. 151-200 mg/dL, give 2 units. 201-250 mg/dL, give 4 units. 251-300 mg/dL, give 6 units. 301-350 mg/dL, give 8 units 351-400 mg/dL, give 10 units 02/24/25 KAIDEN Jain letrozole (FEMARA) 2.5 mg chemo tablet Take 1 tablet by mouth daily 01/25/25 01/20/26 Casimiro Leary MD lidocaine (SALONPAS) 4 % Place 1 patch on the skin daily. 05/29/25 Johnathan Gustafson DO mirtazapine (REMERON) 7.5 mg tablet Take 1 tablet (7.5 mg total) by mouth nightly. 01/22/25 KAIDEN Werner nystatin (MYCOSTATIN) powder Apply 1 Application topically in the morning and 1 Application at noonand 1 Application in the evening and 1 Application before bedtime. 09/06/24 KAIDEN Werner sertraline (ZOLOFT) 100 mg tablet Take 1 tablet (100 mg total) by mouth in the morning. 01/28/25 NotIn System Ref Prov traZODone (DESYREL) 100 mg tablet TAKE 1 TABLET BY MOUTH EVERY DAY AT NIGHT Patient taking differently: Take 1 tablet (100 mg total) by mouth nightly. TAKE 1 TABLET BY MOUTH EVERY DAY AT NIGHT 11/28/24 Stephanie Ley APRN-[employer]ER Code Status: Full Code Past Medical History: Patient has a past medical history of Anemia, Arthritis, Asthma, Cataract, Dental disease, Depression, Diabetes mellitus ([facility] [place] Diabetes mellitus type 2, controlled ([facility] [place]), Encephalitis, Foot fracture, left, GERD (gastroesophageal reflux disease), Heart murmur, HLD (hyperlipidemia), Hypertens ion, Incontinence, Injury of back, Insulin dependent diabetes mellitus, Kidney failure, Lumbar spondylolysis, Murmur, Obesity, CHELSEA (obstructive sleep apnea), Peptic ulceration, Peripheral vascular disease, Shortness of breath, Stroke ([facility] [place]) (02/27/2024), TIA (transient ischemic attack), Upper respiratory infection, UTI (urinary tract infection), Visual impairment, and Wears dentures. Past Surgical History: Patient has a past surgical history that includes section; Tonsillectomy; Cataract extraction; Injection Steroid (Left, 07/04/2018); Injection Steroid (Left, 07/22/2018); Injection Steroid (Right, 08/15/2018); Injection Steroid (Right, 03/17/2019); Injection Steroid (N/A, 04/21/2019); Injection Nerve Block (Bilateral, 06/23/2019); Injection Nerve Block (Bilateral, 08/18/2019); Esophagogastroduodenoscopy (N/A, 10/17/2019); Injection Steroid (N/A, 11/24/2019); Injection Steroid (N/A, 05/03/2020); Shunt Insertion; Dilation and curettage of uterus (N/A, 01/29/2021); Epidural block injection (N/A, 04/25/2021); Epidural block injection (N/A, 06/06/2021); Epidural block injection (N/A, 08/14/2022); section (03/14/1974); Percutaneous coronary intervention; Breast biopsy (Right, 03/01/2023); Mitral valvuloplasty (N/A, 06/03/2023); and Aortic valve surgery (N/A, 08/17/2023). Family History: Patient's family history includes Coronary artery disease in her father; Diabetes in her mother; Hypertension in her father; No Known Problems in her brother. Social History: Patient reports that she has never smoked. She has never used smokeless tobacco. She reports that she does not drink alcohol and does not use drugs. Review of Systems Review of Systems Constitutional: Positive for activity change, appetite change and fatigue. Negative for chills, diaphoresis and fever. HENT: Negative for tinnitus and trouble swallowing. Respiratory: Negative for cough, chest tightness, shortness of breath and wheezing. Cardiovascular: Negative for chest pain, palpitations and leg swelling. Gastrointestinal: Negative for abdominal pain, diarrhea, nausea and vomiting. Genitourinary: Positive for decreased urine volume. Negative for difficulty urinating. Musculoskeletal: Positive for gait problem. Negative for back pain. Skin: Negative for rash. Neurological: Positive for weakness. Negative for dizziness, syncope, speech difficulty, light-headedness, numbness and headaches. Psychiatric/Behavioral: Positive for confusion and decreased concentration. Negative for sleep disturbance. OBJECTIVE BP 144/87 Pulse 80 Temp 36.6 ??C (97.9 ??F) (Oral) Resp 18 Ht 165.1 cm (5' 5 ) Wt 80.7 kg(178 lb) LMP (LMP Unknown) SpO2 94% BMI 29.62 kg/m?? Temp: [36.6 ??C (97.9 ??F)-36.9 ??C (98.4 ??F)] 36.6 ??C (97.9 ??F) Pulse: [80-94] 80 Resp: [17-25] 18 BP: (106-144)/(56-92) 144/87 SpO2: [90 %-94 %] 94 % O2 Device: None (Room air) O2 Flow Rate (L/min): [0 L/min] 0 L/min Intake/Output Summary (Last 24 hours) at 06/11/2025 1200 Last data filed at 06/11/2025 1125 Gross per 24 hour Intake 409.68 ml Output -- Net 409.68 ml Physical Exam Physical Exam Vitals and nursing note reviewed. Constitutional: General: She is not in acute distress. Appearance: She is ill-appearing. HENT: Head: Normocephalic and atraumatic. Right Ear: External ear normal. Left Ear: External ear normal. Nose: Nose normal. Mouth/Throat: Mouth: Mucous membranes are moist. Pharynx: Oropharynx is clear. Eyes: Extraocular Movements: Extraocular movements intact. Conjunctiva/sclera: Conjunctivae normal. Pupils: Pupils are equal, round, and reactive to light. Neck: Vascular: No carotid bruit or JVD. Cardiovascular: Rate and Rhythm: Normal rate and regular rhythm. Pulses: Normal pulses. Pulmonary: Effort: Pulmonary effort is normal. Breath sounds: Normal breath sounds. Abdominal: General: Bowel sounds are normal. Palpations: Abdomen is soft. Tenderness: There is no abdominal tenderness. There is no right CVA tenderness or left CVA tenderness. Musculoskeletal: Right lower leg: No edema. Left lower leg: No edema. Lymphadenopathy: Cervical: No cervical adenopathy. Skin: General: Skin is warm and dry. Capillary Refill: Capillary refill takes less than 2 seconds. Neurological: General: No focal deficit present. Mental Status: She is alert and oriented to person, place, and time. She is confused. Motor: Weakness (We will extremities) present. Gait: Gait abnormal. Comments: Intermittent confusion with conversation Psychiatric: Cognition and Memory: Memory is impaired. Medications Scheduled: [START ON 06/12/2025] cefTRIAXone (ROCEPHIN) IV, 2,000 mg, intravenous, Q24H cyanocobalamin, 1,000 mcg, oral, Daily ferrous sulfate, 325 mg, oral, Daily with breakfast gabapentin, 300 mg, oral, Daily gabapentin, 600 mg, oral, Nightly heparin (porcine), 5,000 Units, subcutaneous, Q8H D[place]TON insulin lispro, 2-10 Units, subcutaneous, TID with meals insulin lispro, 2-8 Units, subcutaneous, Nightly letrozole, 2.5 mg, oral, Daily mirtazapine, 7.5 mg, oral, Nightly sertraline, 100 mg, oral, Daily traZODone, 100 mg, oral, Nightly Infusions: dextrose 5 % in water, 100 mL/hr sodium chloride 0.9 %, 20 mL/hr sodium chloride 0.9 %, 75 mL/hr, Last Rate: 75 mL/hr (06/11/25 1125) As Needed: acetaminophen alum-mag hydroxide-simeth dextrose dextrose 5 % in water dextrose 50 % in water (D50W) glucagon (human recombinant) magnesium sulfate magnesium sulfate ondansetron potassium chloride OR potassium chloride OR potassium chloride IV (Adult) sennosides-docusate sodium sodium chloride sodium chloride sodium chloride 0.9 % Allergies: Patient has no known allergies. Labs Recent Results (from the past 24 hours) POCT Nursing Urine Macroscopic UA Collection Time: 06/10/25 1:29 PM Result Value Ref Range POC Urine Specific [place] >=1.030 (A) 1.010, 1.015, 1.020, 1.025 POC Urine Leukocyte Esterase Trace (A) Negative POC Urine Nitrite Negative Negative POC Urine pH 5.5 5.0, 6.0, 6.5, 7.0, 7.5, 8.0, 8.5, 5.5 POC Urine Protein 100 mg/dL (A) Negative POC Urine Glucose Negative Negative POC Urine Ketones 40 mg/dL (A) Negative POC Urine Urobilinogen 0.2 E.U./dL POC Urine Bilirubin Moderate (A) Negative POC Urine Blood/HGB Trace (A) Negative CBC auto differential Collection Time: 06/11/25 12:58 AM Result Value Ref Range WBC 10.8 4 - 11 x10E9/L RBC Count 3.94 3.8 - 5.2 X10E12/L Hemoglobin 10.4 (L) 11.7 - 15.5 g/dL Hematocrit 31.6 (L) 35 - 47 % MCV 80 80 - 100 fL MCH 26.3 (L) 27 - 34 pg MCHC 32.8 32 - 36 g/dL RDW 16.2 (H) 11.5 - 15 % Platelet Count 318 150 - 450 X10E9/L MPV 8.2 7 - 12 fL Neutrophils % 76.8 % Lymphocytes % 13.4 % Monocytes % 8.8 % Eosinophils % 0.6 % Basophils % 0.4 % Neutrophils Absolute (A) 8.3 (H) 1.5 - 6.6 10*3/uL Lymphocytes Absolute 1.4 1.0 - 3.5 10*3/uL Monocytes Absolute 0.9 0.0 - 0.9 10*3/uL Eosinophils Absolute 0.1 0.0 - 0.4 10*3/uL Basophils Absolute 0.0 0.0 - 0.2 10*3/uL Differential Type AUTOMATED DIFFERENTIAL Comprehensive metabolic panel Collection Time: 06/11/25 12:58 AM Result Value Ref Range SODIUM 133 (L) 134 - 146 mmol/L POTASSIUM 3.8 3.5 - 5.0 mmol/L CHLORIDE 98 98 - 109 mmol/L CARBON DIOXIDE 20 (L) 22 - 32 mmol/L ANION GAP 15 5 - 15 mmol/L BLOOD UREA NITROGEN 19 5 - 27 mg/dL CREATININE 1.32 (H) 0.40 - 1.00 mg/dL GLUCOSE 209 (H) 65 - 99 mg/dL CALCIUM 9.1 8.5 - 10.5 mg/dL TOTAL PROTEIN 8.1 (H) 6.0 - 8.0 g/dL ALBUMIN 3.8 3.2 - 5.3 g/dL ALKALINE PHOSPHATASE 128 39 - 130 U/L AST 25 <=41 U/L ALT 14 <=31 U/L BILIRUBIN,TOTAL 1.1 0.3 - 1.2 mg/dL EGFR Non-Race Dependent 41 (L) >=60 ml/min/1.73sq.m Troponin I, High Sensitivity Collection Time: 06/11/25 12:58 AM Narrative The following orders were created for panel order Troponin I, High Sensitivity. Procedure Abnormality Status --------- ------ Troponin I, High Sensiti...[[id number]] Normal Final result Troponin I, High Sensiti...[[id number]] Normal Final result Please view results for these tests on the individual orders. Magnesium Collection Time: 06/11/25 12:58 AM Result Value Ref Range MAGNESIUM 1.6 (L) 1.8 - 2.6 mg/dL Thyroid profile includes TSH FT4 Collection Time: 06/11/25 12:58 AM Result Value Ref Range FREE T4 1.59 0.61 - 1.60 ng/dL TSH 2.32 0.49 - 4.67 uIU/mL CK Total Collection Time: 06/11/25 12:58 AM Result Value Ref Range CPK 81 24 - 170 U/L Troponin I, High Sensitivity 0 Hour Collection Time: 06/11/25 12:58 AM Result Value Ref Range TROPONIN I, HIGH SENSITIVITY 12 <16 ng/L B-type natriuretic peptide Collection Time: 06/11/25 12:58 AM Result Value Ref Range BNP 161 (H) <=100 pg/mL Extra Tubes Collection Time: 06/11/25 12:58 AM Narrative The following orders were created for panel order Extra Tubes. Procedure Abnormality Status --------- ------ Light Blue Top[[id number]] Final result Please view results for these tests on the individual orders. Light Blue Top Collection Time: 06/11/25 12:58 AM Result Value Ref Range Extra Tube Auto Resulted Troponin I, High Sensitivity 1 Hour Collection Time: 06/11/25 2:11 AM Result Value Ref Range TROPONIN I, HIGH SENSITIVITY 13 <16 ng/L Extra Tubes Collection Time: 06/11/25 5:16 AM Narrative The following orders were created for panel order Extra Tubes. Procedure Abnormality Status --------- ------ PST TOP[[id number]] Final result Please view results for these tests on the individual orders. PST TOP Collection Time: 06/11/25 5:16 AM Result Value Ref Range Extra Tube Auto Resulted Magnesium Collection Time: 06/11/25 5:16 AM Result Value Ref Range MAGNESIUM 1.7 (L) 1.8 - 2.6 mg/dL APTT Collection Time: 06/11/25 5:17 AM Result Value Ref Range APTT 27 26 - 37 sec Hemoglobin Collection Time: 06/11/25 5:17 AM Result Value Ref Range Hemoglobin 10.3 (L) 11.7 - 15.5 g/dL Platelet count Collection Time: 06/11/25 5:17 AM Result Value Ref Range Platelet Count 287 150 - 450 X10E9/L MPV 8.7 7 - [address] abdomen and pelvis without contrast Result Date: 06/11/2025 Narrative: CT ABDOMEN AND PELVIS WITHOUT INTRAVENOUS CONTRAST HISTORY: Generalized weakness, flank pain COMPARISON: 01/10/2025 TECHNIQUE: Axial images through the abdomen and pelvis obtained with coronal and sagittal reformatted images. FINDINGS: Visualized lung bases are unremarkable. The liver, gal lbladder, spleen, adrenal glands, pancreas, and kidneys are unremarkable. No enlarged abdominal or pelvic lymph nodes. Small fat-containing left inguinal hernia. Small left lateral bladder diverticulum. Left ovarian cystic lesion measuring approximately 6.6 cm, similar to previous study. Small amount of free fluid in the pelvis. There are foci of air within the endometrial cavity. Shunt tubing terminates in the left abdomen. Normal appendix. The small and large bowel are of normal caliber with no evidence of bowel wall thickening. Innumerable lytic lesions scattered throughout the spine and pelvis with compression deformity of L1 vertebral body. These have worsened since previous study. There is a pathologic fracture of the right greater trochanter and right lesser trochanter. IMPRESSION:* No acute abnormalities in the abdomen/pelvis. * Large left ovarian cystic lesion is unchanged. Small amount of free fluid in the pelvis present as well. * Foci of air within the endometrial cavity, nonspecific. Correlate for recent endometrial biopsy/procedure. Differential consideration would include endometritis. 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 Pathologic fractures of the right greater and lesser trochanters. All CT scans at this facility use dose modulation, iterative reconstruction, and/or weight based dosing when appropriate to reduce radiation dose to as low as reasonably achievable. Finalized by MD Rabia on 06/11/2025 2:23 AM X-ray chest 1 view Result Date: 06/11/2025 Narrative: XR CHEST 1 VW HISTORY: Weakness COMPARISON: Chest radiograph 06/08/2025, 05/13/2025, and 04/28/1985. FINDINGS: The trachea is midline. Stable cardiomediastinal silhouette. No pneumothorax or pleural effusion. No focal consolidation. Right ventriculoperitoneal shunt tubing appears stable. IMP RESSION: * No radiographic evidence of acute pulmonary process. Approved by Resident Javier Sanchez MD on 06/11/2025 2:15 AM I, Ryan Dominguez MD have personally reviewed the image(s) and agree with and/or edited the report Finalized by Ryan Dominguez MD on 06/11/2025 2:18 AM X-ray chest 1 view Result Date: 06/08/2025 Narrative: Single view chest History: Fatigue Comparison: X-ray 05/13/2025 Findings: Single portableview of the chest. Cardiomediastinal silhouette and pulmonary vasculature are within normal limits.Lungs and pleural space are clear. There is no pleural effusion or pneumothorax. Impression: No acute cardiopulmonary process. Finalized by Jason Bryan on 06/08/2025 8:56 AM X-ray pelvis 1 or 2 views Result Date: 06/06/2025 Narrative: Imaging Result: AP Pelvis Osteopenia noted Mild distraction of less trochanteric avulsion fracture. Soft tissue vascular calcifications are prominent No effusion. Remote sclerotic changes from pubic ramus fracture bilaterally with mild degenerative changes of hip Impression: stable appearing right hip lesser trochanteric avulsion fracture. X-ray hip right 2-3 views with or without pelvis Result Date: 05/30/2025 Narrative: History: Pain Exam/Technique: AP pelvis and AP and crosstable lateral views of the righthip were obtained. Comparison: Comparison made to a CT of the right hip dated 05/13/2025 Findings: Adisplaced fracture of the lesser trochanter is again seen. There is an old fracture of the inferiorpubic rami bilaterally. There is no evidence for an acute osseous abnormality. The remaining visualized osseous structures are intact. IMPRESSION: Stable displaced fracture of the lesser trochanter, unchanged from the previous examination 05/13/2025. There is no evidence for an acute fracture. Finalized by Johnathan Zheng MD on 05/30/2025 12:[address] brain without contrast Result Date: 05/22/2025 Narrative: CT HEAD WO IV CONTRAST HISTORY: Normal pressure hydrocephalus COMPARISON: CT head 03/16/2024 TECHNIQUE: CT brain without intravenous contrast. Automated exposure control was utilized. All CT scans at this facility use dose modulation, iterative reconstruction, and/or weight based dosing when appropriate to reduce radiation dose to as low as reasonably achievable. FINDINGS: Redemonstrated right frontal shunt with tip terminating near the anterior portion of the septum pellucidum. The ventricles are enlarged bilaterally but are stable in appearance compared to 03/16/2024. No midline s hift, mass effect, acute intracranial hemorrhage, or evidence of acute large vessel ischemia/infarct. Chronic encephalomalacia of the right frontal lobe which is chronic and most likely due to shunt placement. Normal attenuation of the cerebral parenchyma. Brainstem and cerebellum are unremarkable.Visualized intraorbital contents and the infratemporal soft tissues show no acute abnormality. The visualized paranasal sinuses and mastoid air cells are clear. Osseous structures in skull base and calvarium show no acute abnormality. Impression: * Similar appearance and placement of right frontal shunt placement. * Ventriculomegalywhich correlates with patient's known normal pressure hydrocephalus. No significant interval changecompared to prior examination. * No evidence of acute intracranial abnormality. Approved by:Jason Sanchez05/22/2025 9:45 AM. I, Srinivas Ferrara,have reviewed the image(s) and agree with the findings in this report. Electronically signed: Srinivas Ferrara. Xr GENERAL MAINTENANCE ENGINEER Shunt Series Result Date: 05/22/2025 Narrative: XR GENERAL MAINTENANCE ENGINEER SHUNT SERIES: 05/22/2025 PROVIDED HISTORY: * 79 years old Female * one year follow up kinking or discontinuity of shunt tubing, needs CT brain same day. COMPARISON: The GENERAL MAINTENANCE ENGINEER shunt [id number]/2024 TECHNIQUE: A total of five views of the head, chest, abdomen and pelvis were obtained. Findings: Right frontal approach ventriculostomy catheter tubing terminating in the midline, with catheter tubing coursing along the right neck, right upper hemithorax, crossing the midline to extend along the left parasternal border, within within the left hemiabdomen to terminate in the upper pelvis. No evidence of transection of kinking, with limited evaluation region of looping. Prosthetic aortic valve. Codman Hakim programmable ventriculostomy set at approximately 130-140, similar to prior. Impression: Impression: Ventriculostomy catheter tubing without evidence of acute complication, though evaluation limited due to looped configuration overlying the left hemiabdomen. Electronically signed: Doug Funes. CT brain without contrast Result Date: 05/14/2025 Narrative: STUDY: CT HEAD WITHOUT CONTRAST CLINICAL HISTORY: AMS Altered mental status COMPARISON: April 28 Procedure: Multi-detector CT performed through the brain without IV contrast. The lack of IVcontrast limits evaluation for acute infarct, mass, infectious process,or demyelinating disease.Automated exposure control was utilized. Findings: Prominent ventricles and right ventricular shunt catheter similar in appearance to prior study. There is no new intracranial hemorrhage, extra-axial fluid collection, or mass effect. Dunham-white matter differentiation is appropriate. Infarcts and massesmay be occult on CT, but grossly no acute infarct identified There is no midline shift. IMPRESSION:* No acute change. Consider brain MRI if you suspect occult process. All CT scans at this facility use dose modulation, iterative reconstruction, and/or weight based dosing when appropriate to reduceradiation dose to as low as reasonably achievable. Finalized by Blu Miller MD on 05/14/2025 12:[address] hip right without contrast Result Date: 05/13/2025 Narrative: Study: CT right hip History:Pain sepsis Protocol:CT right hip without contrast Contrast none COMPARISON:No prior Findings: There is an isolated fracture through lesser trochanter with minimal displacement. Degenerative changes in the hips with mild joint space are narrowing but there maybe some subarticular cystic changes. No left hip fracture. Degenerative changes in the left hip No definite CT evidence of osteomyelitis. No soft tissue swelling or soft tissue gas. Noncontrast CT isnot sensitive for early osteomyelitis and if osteomyelitis is suspected MRI for nuclear medicine labeled white cell study would be best for further evaluation IMPRESSION: * Isolated minimally displaced fracture through the right lesser trochanter. * Degenerative changes in both hips. * No definite CT evidence of osteomyelitis. No soft tissue swelling or soft tissue gas. Noncontrast CT is not sensitive for early osteomyelitis and if osteomyelitis is suspected MRI for nuclear medicine labeled white cell study would be best for further evaluation All CT scans at this facility use dose modulation, iterative reconstruction, and/or weight based dosing when appropriate to reduce radiation dose to as low as reasonably achievable Finalized by Chester Parra MD on 05/13/2025 1:01 PM X-ray chest 1 view Result Date: 05/13/2025 Narrative: Procedure: Chest x-ray performed Number of views:1 History:Shortness of breath Comparison:04/28/2025 Findings: The heart and lungs show no acute findings, and the mediastinum and stanley are grossly negative . Tube overlying right chest stable. Impression: 1. No acute change. Finalized by Berry Wyman MD on 05/13/2025 11:[address] lumbar spine without contrast Result Date: 05/12/2025 Narrative: EXAM: CT SCAN OF THE LUMBAR SPINE WITHOUT CONTRAST CLINICAL INFORMATION: back pain, right hip pain, 3rd ER visit. TECHNIQUE: CT lumbar spine performed without contrast with axial, coronal and sagittal images. Automated exposure control utilized. COMPARISON: CT of the lumbar spine dated 03/24/2025, radiographs of the lumbar spine dated 05/11/2025 FINDINGS: The lumbar spine maintains a normal lordotic curvature. Table appearance of mixed lytic and sclerotic osseous metastatic disease throughout the lumbosacral and visualized lower thoracic spine. Stable appearance of a chronic moderatecompression deformity of L1, presumed pathologic. Stable minimal 0.4 cm dorsal retropulsion of the posterior-superior corner of L1 flattening the ventral aspect of the thecal sac. Minimal chronic compression involving the superior endplate of L2 is stable. The remaining visualized vertebral body heights are normal. There is no convincing evidence for a new acute displaced fracture of the lumbar spine. Stable chronic localized mild grade 1 degenerative anterolisthesis of L4 on L5 and mild degenerative retrolisthesis of L5 on S1. Stable chronic degenerative disc disease with loss of the disc space heights and degenerative vacuum disc phenomena. This is most prominently seen at L5-S1 where there is dissected severe narrowing of the neural foramina. There is also suspected severe narrowing ofthe right L2-3 neural foramen. There is partial visualization of aortic valve replacement. The distal portion of a GENERAL MAINTENANCE ENGINEER shunt is seen within the abdomen. Again seen is a 6.1 cm left adnexal cyst, suspected ovarian. IMPRESSION: 1. There has been no significant interval change since 03/24/2025. Stable appearance of diffuse lytic and sclerotic osseous metastatic disease. 2. Stable appearance of a chronic moderate compression fracture of the L1 vertebral body with minimal O.4 cm dorsal retropulsion flattening thecal sac. Stable minimal chronic compression involving the superior endplate of L2. No convincing new fractures are identified. 3. Redemonstration of chronic degenerative disc disease, as above. There is suspected severe L5-S1 and right L2-3 neural foraminal stenosis. 4. Partial visualization of a 6.1 cm left adnexal cyst, suspected ovarian. There is partial visualization of a GENERAL MAINTENANCE ENGINEER shunt and changes of aortic valve replacement. All CT scans at this facility use dose modulation, iterative reconstruction, and/or weight based dosing when appropriate to reduce radiation dose to as low as reasonably achievable. Finalized by Laci Lima MD on 05/12/2025 12:37 PM HOSPITAL PROBLEM LIST Principal Problem: UTI (urinary tract infection) Active Problems: GERD without esophagitis 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 mellitus ([facility]) Anemia, chronic disease Obstructive sleep apnea syndrome Essential (primary) hypertension Stage 3b chronic kidney disease ([facility]-HCC) Generalized muscle weakness Iron deficiency anemia Hypomagnesemia ASSESSMENT & PLAN UTI: Urine culture pending. Continue Rocephin 2 g started on 06/11/2025. Normal saline 75 mL an hour for 1 day. Monitor for fluid overload with daily weights and I&Os. Patient does have history of CHF. GERD: Maalox as needed. No symptoms at this time. Dm type 2 with neuropathy: Continue home Lantus. Monitor blood glucose a.c. and HS cover sliding scale insulin. Continue home dose gabapentin. Anemia: Secondary to CKD 3. Hemoglobin stable. Continue home ferrous sulfate. Monitor hemoglobin daily. Obstructive sleep apnea: Encouraged home PAP use. Hypertension: Normotensive. Not on medications at home. Continue to monitor. CKD 3B: Kidney function at baseline. Continue IV fluids for 1 day. Plan to restart home Lasix tomorrow. Generalized muscle weakness: PT OT to see. Hypomagnesemia: Supplement. Monitor electrolytes daily replace per protocol. Admission orders placed and home medications reconciled. DVT prophylaxis: EPC's and heparin subQ. PT/OT to evaluate and treat. DC planning: Discharge home with home health versus shelter facility in 1-2 days. Sepsis suspected, no-not clinically evident at this time. KAIDEN Hopkins, 06/11/2025 12:00 PM [facility] 7AM-7PM & 7PM-7AM: EpicChat or page through On-Call Finder. Physician Attestation: I have reviewed the above note authored by the Advance Practice Provider (PROMISE) including history, review of systems, physical examination, medical decision making and agree with the assessment & plan. I have personally performed a face to face diagnostic evaluation on this patient. I have reviewed all laboratory findings and imaging reports/films. I have independently evaluated the patient and repeated hoffmann portions of the physical exam. I agree with the PROMISE plan as above, unless otherwise noted. ILDEFONSO BALLESTEROS MD documented in this encounter Nursing Notes * Ileana Venegas RN - 06/13/2025 3:05 PM EDT Pt assisted with getting dressed, purewick removed, and assisted into wheelchair at this time. Instructions reviewed. Pt and family deny further questions/concerns. Pt taken via wheelchair to [facility]. documented in this encounter ED Notes * Prem Day MD - 06/11/2025 12:42 AM EDT Images from the original note were not included. [facility] - EMERGENCY Pt Name: Cuca Dee Birthdate: 1945 Chief Complaint: Chief Complaint Patient presents with Weakness - Generalized Seen here earlier for weakness and UTI, pt daughter called EMS due to not being able to take care of pt because of pt being so weak. History of Present Illness: Patient presents by EMS for evaluation of weakness. Was seen here earlier today and was diagnosed with a UTI she is currently on Cipro. When she got home symptoms got worse and she is diffusely weak to the point where she can not get out of her wheelchair. Denies any falls or trauma. History provided by: Patient and EMS personnel Past Medical History: Past Medical History: Diagnosis Date Anemia Arthritis Asthma very mild, no inhaler use Cataract Dental disease Depression Diabetes mellitus ([facility]) Diabetes mellitus type 2, controlled ([facility]) Encephalitis Foot fracture, left GERD (gastroesophageal reflux disease) Heart murmur HLD (hyperlipidemia) Hypertension Incontinence Injury of back Insulin dependent diabetes mellitus Kidney failure STAGE 4 Lumbar spondylolysis Murmur Obesity CHELSEA (obstructive sleep apnea) no machine Peptic ulceration Peripheral vascular disease Shortness of breath Stroke ([facility]) 02/27/2024 TIA (transient ischemic attack) Upper respiratory infection UTI (urinary tract infection) Visual impairment Wears dentures Past Surgical History: Past Surgical History: Procedure Laterality Date BREAST BIOPSY Right 03/01/2023 ULT BIOPSY CATARACT EXTRACTION SECTION SECTION 03/14/1974 EGD N/A 10/17/2019 Performed by Sang Bell DO at [facility] H-PERCUTANEOUS CORONARY INTERVENTION HYSTEROSCOPY DILATION CURETTAGE MYOSURE N/A 01/29/2021 Performed by Jv Briones MD at [facility] INJECTION BLOCK EPIDURAL CAUDAL STEROID N/A 08/14/2022 Performed by Arnulfo Gonzalez MD at [facility] INJECTION BLOCK EPIDURAL CAUDAL STEROID N/A 06/06/2021 Performed by Arnulfo Gonzalez MD at [facility] INJECTION BLOCK EPIDURAL CAUDAL STEROID N/A 04/25/2021 Performed by Arnulfo Gonzalez MD at [facility] INJECTION CAUDAL EPIDURAL WITH CATHETER, STEROID N/A 05/03/2020 Performed by Arnulfo Gonzalez MD at [facility] INJECTION CAUDAL EPIDURAL WITH CATHETER, STEROID N/A 11/24/2019 Performed by Arnulfo Gonzalez MD at [facility] INJECTION CAUDAL EPIDURAL WITH CATHETER, STEROID N/A 04/21/2019 Performed by Arnulfo Gonzalez MD at [facility] MEDIAL BRANCH NERVE BLOCK Bilateral L 4/5, 5/1 Bilateral 08/18/2019 Performed by Arnulfo Gonzalez MD at [facility] INJECTION MEDIAL BRANCH NERVE BLOCK Bilateral L 4/5, 5/1 Bilateral 06/23/2019 Performed by Arnulfo Gonzalez MD at [facility] INJECTION STEROID EPI 1 WITH SEDATION Right L 4, 5 NR Right 03/17/2019 Performed by Arnulfo Gonzalez MD at [facility] INJECTION STEROID EPI 1 WITH SEDATION: right L45 nroot Right 08/15/2018 Performed by Arnulfo Gonzalez MD at [facility] LEFT L4, AND 5 NERVE ROOT INJECTION 2 OF 2 Left 07/22/2018 Performed by Arnulfo Gonzalez MD at [facility] LEFT L4, AND L5 NERVE ROOT 1 OF 2 Left 07/04/2018 Performed by Arnulfo Gonzalez MD at [facility] SHUNT INSERTION TONSILLECTOMY AGE 4 Transcutaneous aortic valve replacement/Transfemoral/Kwan N/A 08/17/2023 Performed by Chava Norris MD at [facility] Valvuloplasty aortic N/A 06/03/2023 Performed by Chava Norris MD at [facility] Family History: Family History Problem Relation Age of Onset Diabetes Mother Hypertension Father Coronary artery disease Father No Known Problems Brother Breast cancer Neg Hx Social History: Social History Socioeconomic History Marital status: Single Tobacco Use Smoking status: Never Smokeless tobacco: Never Vaping Use Vaping status: Never Used Substance and Sexual Activity Alcohol use: No Drug use: No Sexual activity: Defer Other Topics Concern Caffeine Use No Social Drivers of Health Financial Resource Strain: Medium Risk (10/28/2024) Overall Financial Resource Strain (CARDIA) Difficulty of Paying Living Expenses: Somewhat hard Food Insecurity: No Food Insecurity (06/10/2025) Hunger Screening Food Insecurity - Worry: Never True Food Insecurity - Inability: Never True Transportation Needs: Unmet Transportation Needs (05/13/2025) PRAPARE - Transportation Lack of Transportation (Medical): No Lack of Transportation (Non-Medical): Yes Physical Activity: Inactive (10/28/2024) Exercise Vital Sign Days of Exercise per Week: 0 days Minutes of Exercise per Session: 0 min Stress: Stress Concern Present (10/28/2024) [facility] - Occupational Stress Questionnaire Feeling of Stress : To some extent Social Connections: Moderately Integrated (10/28/2024) Social Connection and Isolation Panel [NHANES] Frequency of Communication with Friends and Family: Never Frequency of Social Gatherings with Friends and Family: More than three times a week Attends [employer] Services: More than 4 times per year Active Member of Clubs or Organizations: Yes Attends Club or Organization Meetings: More than 4 times per year Marital Status: Never Interpersonal Safety: Not At Risk (05/13/2025) Humiliation, Afraid, Rape, and Kick questionnaire Fear of Current or Ex-Partner: No Emotionally Abused: No Physically Abused: No Sexually Abused: No Housing Instability: Low Risk (05/13/2025) Housing Instability Housing Instability: No Review of Systems: Review of Systems Physical Exam: ED Triage Vitals Temp Pulse Resp BP SpO2 -- -- -- -- -- Temp src Heart Rate Source Patient Position BP Location FiO2 (%) -- -- -- -- -- There were no vitals filed for this visit. Physical Exam Vitals and nursing note reviewed. Constitutional: General: She is not in acute distress. Appearance: Normal appearance. She is not ill-appearing. HENT: Head: Normocephalic and atraumatic. Eyes: Extraocular Movements: Extraocular movements intact. Pupils: Pupils are equal, round, and reactive to light. Cardiovascular: Rate and Rhythm: Normal rate and regular rhythm. Pulses: Normal pulses. Heart sounds: Normal heart sounds. No murmur heard. No friction rub. No gallop. Pulmonary: Effort: Pulmonary effort is normal. No respiratory distress. Breath sounds: Normal breath sounds. No stridor. No wheezing, rhonchi or rales. Abdominal: General: Abdomen is flat. There is no distension. Tenderness: There is abdominal tenderness. There is no right CVA tenderness, left CVA tenderness, guarding or rebound. Skin: General: Skin is warm. Capillary Refill: Capillary refill takes 2 to 3 seconds. Neurological: General: No focal deficit present. Mental Status: She is alert. Cranial Nerves: No cranial nerve deficit. Sensory: No sensory deficit. Motor: No weakness. Coordination: Coordination normal. Procedure: Procedures Re-evaluation: Re-Evaluation Medical Decision Making My exam the patient is elderly but nontoxic well-appearing in no acute distress. I can not appreciate any neurologic deficits. She has mild suprapubic abdominal tenderness. I reviewed her testing from earlier today which did not show any acute pathology. I am going to repeat the serology adamant some other tests look for other pathology do imaging including a CT of her abdomen and pelvis and an x-ray give her a dose of Rocephin as her last urine culture showed Klebsiella sensitive to Rocephin. Shows but due to the extended for weakness I do think she will warrant admission to the hospital. My independent interpretation of the EKG shows sinus rhythm with a complete left bundle-branch block no acute signs of infarction ischemia or arrhythmia this is a nonspecific EKG that is unchanged from previous. CBC is unchanged from previous. CMP is abnormal for an elevated glucose and slight elevation of the creatinine. BNP slightly elevated Troponin normal My independent interpretation of both the chest x-ray in the CT scan show no acute pathology. Thereare many chronic abnormalities but I see no acute process. Official radiology report is pending. Spoke with the nurse practitioner on-call for the hospitalist who accepts the patient for admission. Amount and/or Complexity of Data Reviewed Labs: ordered. Radiology: ordered. ECG/medicine tests: ordered. Risk Prescription drug management. ED Course: Clinical Impressions as of 06/11/25 0245 UTI (urinary tract infection) . ED Disposition None . Please note that portions of this note were completed with a voice recognition program. Efforts were made to edit the dictations but occasionally words are mis-transcribed. Prem Day MD 06/11/25 0046 Prem Day MD 06/11/25 0048 Prem Day MD 06/11/25 0128 Prem Day MD 06/11/25 0141 Prem Day MD 06/11/25 0214 Prem Day MD 06/11/25 0245 Prem Day MD 06/11/25 0256 documented in this encounter Miscellaneous Notes * Discharge Planning Note - Fifi Ayon - 06/13/2025 12:13 PM EDT DISCHARGE PLANNING NOTE Referral sent to [facility]- P# ; F# , * Discharge Planning Note - Purvi Cardenas RN - 06/13/2025 12:01 PM EDT DISCHARGE PLANNING NOTE Cuca Dee Now states she does not want to go to [place] and wants to go home with [facility]. Tasked referral to transition center. Patient was strongly encouraged to consider her safety at home as her PT/OT scores are quite low. She also has a history of being at home and is unable to care for self but daughter does live with her. Patient refuses SNF and continues to state she will go home with [facility]. CRF sent via [facility] to [facility]. Discharge Plan: Home with [facility] (accepted) for RN/PT/OT. Plan of Care: [facility] [phone] or [phone] fax CRF at Discharge Patient or daughter to call and scheduled follow up appointment with PCP. Purvi Cardenas RN 06/13/25 12:22 PM * PT/OT/FELT COVERER - DANDRE Vargas/Trice - 06/13/2025 11:47 AM EDT Occupational Therapy Co-Treatment (Completed with PT in order to increase functional outcomes with 2 skilled therapy professional needed due to extensivepain, decreased endurance, decreaseabilitytostand duetopain,withOT assessingADLtasks endurance,balanceasit relatestoADLtasks completion) Discharge Recommendations for Safe Patient Transition Discharge Recommendations: Post acute - moderate Post Acute Moderate Rehab Needs: Tolerate 1-2 hrs of therapy 3-5 days/wk, Recommend moderate intensity rehab, Subacute or chronic functional impairment Current Impairments Informing Therapy Recommendation: Ambulation status/safety, Cognition, Fall risk, ADL status, Endurance level Director Housekeeping Support for-: Mobility Deficits, ADL Deficits, Cognitive Impairments 6 Clicks: Daily Activity Putting on and taking off regular lower body clothing?: Total Bathing (including washing, rinsing, drying)?: Total Toileting, which includes using toilet, bedpan or urinal?: Total Putting on and taking off regular upper body clothing?: Total Taking care of personal grooming such as brushing teeth?: A little Eating meals?: A little Scoring Daily Activity Raw Score: 10 CMS G Code Modifier: CL Therapy Plan Need for skilled Occupational Therapy to address deficits in ADL independence and functional mobility due to a status decline resulting from UTI. OT Treatment/Interventions: ADL retraining, Functional transfer training, UE strengthening/ROM, Endurance training, Cognitive reorientation, Patient/family training, Equipment eval/education, Balance, Home management, Compensatory technique education, Functional activities OT Frequency: 4-5days/week OT Duration: 10 days Assessment Patient Assessment Therapy Problem List: Decreased ADL status, Decreased balance, Decreased cognition, Decreased endurance, Decreased gross motor, Decreased high-level ADLs, Decreased mobility, Decreased safe judgementduring ADL, Decreased self- care trans, Decreased UE strength, Decreased LE strength Patient Response to Treatment: Slow progress, medical status limitations Mood/Affect: Appropriate for circumstances Rehab Prognosis: Fair, Guarded, With continued OT status post acute discharge Visit RN Communication: Yes Medical Record Reviewed: Yes OT Type of Visit: Co-Treatment (Completed with PT in order to increase functional outcomes with 2 skilled therapy professional needed due to extensivepain, decreased endurance, decreaseabilitytostandduetopain,withOT assessingADLtasks endurance,balanceasit relatestoADLtasks completion) Precautions Activity: Ok to treat per Ileana PIERRE Equipment: non-skid socks, gait belt, IV, pure wick, maxi soledad Telemetry/Director Of Land Acquisition: Yes Oxygen Used: room air Other: fall risk, , back pain/ hip pain. CTof abdomen : ' Extensive osseous metastatic disease has progressed since previous CT from December 2024. Pathologic fractures of the right greater and lesser trochanters. Subjective Occupational Therapy Comments: is this my ticket to get out of here, if I particapte in therapy Pain Assessment Pain Assessment: 0-10 Pain Score: 5 Pain Location: Hip Pain Orientation: Right Pain Intervention(s): (RN provided medication at start of session) ADL / IADL Other: patient refuses oral care. pt washes face while seated in chair with SBA. total assist to wash back while seated on edge of bed Home Management - IADL Other: patient refuses oral care. pt washes face while seated in chair with SBA. total assist to wash back while seated on edge of bed Hearing / Speech / Vision Hearing: Hard of hearing/hearing concerns Speech: Within Functional Limits Current Vision: Wears glasses all the time Cognition Orientation Level: Oriented X4 Bed Mobility Supine to Sit: Mod assist (head of bed slightly elevated and use of bed rail. assist needed to scoot hip closer to edge of bed.) Sit to Supine: Max assist (returned to supine to allow for use of maxi soledad with sling) Other: pt remains in chair at end of sesstion, needs with in reach, ed provided to use call light, chair alarm on - RN made aware of summary of treatment session . pt is noted to be picking at several scabs on LE's, band aid applied to LLE due to bleeding and RN also made aware Transfers Sit to Stand: Unable to assess Bed to Chair: Total assist (use of maxi soledad due to pain and R LE, unable to bear weight in R LE) Other: attempted to stand with martha dan, pt is not able bear weight on R LE due to pain, attempted functional transfers in order to increase independence in lower body dressing. pt is returned to supine and use of maxi soledad is utilized to transfer from bed to chair Balance Sitting Balance: Static: Good, Fair Sitting Balance: Dynamic: Fair, Poor Standing Balance: Static: (unable to stand due to pain) Activity Tolerance Endurance: Tolerates <30 minutes activity WITHOUT vital sign changes Plan Occupational Therapy Care Plan Occupational Therapy Care Plan (Active) Template: OT - Occupational Therapy Problem: Activity Tolerance Dates: Start: 06/11/25 Disciplines: OT Goal: Tolerate > 30 minutes of activity WITH rest breaks Dates: Start: 06/11/25 Expected End: 06/20/25 Description: Goal Description:patient to engage in activities of choice with out changes in vitals in order to promote return to prior level of function Disciplines: OT Outcomes Date/Time User Outcome 06/13/25 1146 Juana Ramsey OTR/Trice Progressing Goal Note filed on 06/13/25 114 by Juana Ramsey OTR/Trice Evaluation of progress towards goal: tolerates session with rest breaks as needed, limited by pain Problem: Other (Customize) Dates: Start: 06/11/25 Disciplines: OT Goal: Improve Dates: Start: 06/11/25 Expected End: 06/20/25 Description: Goal Description:Patient to increase IND in ADls to mod assist including toileting tasks and transfers in order to promote return to prior level of function Disciplines: OT Outcomes Date/Time User Outcome 06/13/25 1146 Juana Ramsey OTR/Trice Not Progressing Goal Note filed on 06/13/25 114 by Juana Ramsey OTR/Trice Evaluation of progress towards goal: refuses oral care, washes face and back, refer to flow sheet for additional info Problem: Standing Balance Dates: Start: 06/11/25 Disciplines: OT Goal: Improve balance to good Dates: Start: 06/11/25 Expected End: 06/20/25 Description: Patient to increase standing balance to good in order to increase IND in ADLS and lower body dressing tasks Disciplines: OT Outcomes Date/Time User Outcome 06/13/25 1146 Juana Ramsey OTR/Trice Not Progressing Goal Note filed on 06/13/25 1146 by Juana Ramsey OTR/Trice Evaluation of progress towards goal: unable to stand and bear weight through R Le this date Problem: Strength Dates: Start: 06/11/25 Disciplines: OT Goal: Improve strength Dates: Start: 06/11/25 Expected End: 06/20/25 Description: Of extremity/ location:pt to increase BUE strength to 4/5 to assist with increased independence in ADL tasks To facilitate: Disciplines: OT Outcomes Date/Time User Outcome 06/12/25 1449 DELFINO Alfaro Progressing Goal Note filed on 06/12/251448 by DELFINO Alfaro Evaluation of progress towards goal: BUE HEP established. Occupational Therapy Care Plan (Resolved) There are no resolved problems. Principal Problem: UTI (urinary tract infection) Active Problems: GERD without esophagitis 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 mellitus ([facility]) Anemia, chronic disease Obstructive sleep apnea syndrome Essential (primary) hypertension Stage 3b chronic kidney disease ([facility]) Generalized muscle weakness Iron deficiency anemia Hypomagnesemia * PT/OT/FELT COVERER - Maryanne Hernandez, PT - 06/13/2025 11:02 AM EDT Physical Therapy Co-Treatment (Performed with OT to maximize patient's functional outcomes, improve activity tolerance and safely mobilize with multiple bony lesions/metastatic disease.) Discharge Recommendations for Safe Patient Transition Discharge Recommendations: Post acute - moderate Post Acute Moderate Rehab Needs: Recommend moderate intensity rehab, Tolerate 1- 2 hrs of therapy 3-5 days/wk, Subacute or chronic functional impairment Current Impairments Informing Therapy Recommendation: Ambulation status/safety, Cognition, Fall risk, ADL status, Endurance level Director Housekeeping Support for-: Mobility Deficits, ADL Deficits, Cognitive Impairments 6 Clicks: Basic Mobility Turning from your back to your side while in a flat bed without using bed rails?: A lot Moving from lying on your back to sitting on side of flat bed without using bed rails?: A lot Moving to and from bed to a chair (including w/c)?: Total Standing up from a chair using your arms (e.g. w/c or bedside chair)?: Total To walk in hospital room?: Total Climbing 3-5 steps with a railing?: Total Scoring 6 Clicks: Basic Mobility Raw Score: 8 CMS G Code Modifier: CM Therapy Plan Need for skilled Physical Therapy to address deficits in functional mobility due to a status decline resulting from UTI with altered mental status. PT Treatment/Interventions: Functional transfer training, LE strengthening/ROM, Endurance training,Balance, Bed mobility, Gait training, Functional activities, Neuromuscular reeducation PT Frequency: 5-6days/week PT Duration: 10 days Assessment Patient Assessment Therapy Problem List: Decreased ADL status, Decreased balance, Decreased cognition, Decreased endurance, Decreased gross motor, Decreased high-level ADLs, Decreased mobility, Decreased safe judgementduring ADL, Decreased self- care trans, Decreased UE strength, Decreased LE strength Patient Response to Treatment: Slow progress, medical status limitations Mood/Affect: Appropriate for circumstances Rehab Prognosis: Fair, Guarded, With continued PT status post acute discharge Visit RN Communication: Yes Medical Record Reviewed: Yes PT Type of Visit: Co-Treatment (Performed with OT to maximize patient's functional outcomes, improve activity tolerance and safely mobilize with multiple bony lesions/metastatic disease.) Precautions Activity: Ok to treat per Ileana PIERRE Equipment: non-skid socks, gait belt, IV, pure wick, maxi soledad Telemetry/Director Of Land Acquisition: Yes Oxygen Used: room air Subjective Physical Therapy Comments: :If it let's me go home today, I'll do it. Pain Assessment Pain Assessment: (Reports right hip pain with attempts at ther ex this date. Doesn't rate on VAS. RN gives patient tylenol at initiation of session.) Hearing / Speech / Vision Hearing: Hard of hearing/hearing concerns Speech: Within Functional Limits Current Vision: Wears glasses all the time Cognition Orientation Level: Oriented X4 Bed Mobility Supine to Sit: Mod assist (Head of bed up, use of rail. Cues to sequence. Exits to right. MOD A to scoot hips closer to edge of bed for foot flat position on the floor.) Other: Ends session reclined in bedside chair, chair alarm intact, call button and bedside table within reach, MAXI SOLEDAD sling under patient. Denies further needs. Transfers Sit to Stand: (Attempted with MAX A x 2, gait belt and sera steady, but patient unable to clear buttocks enough to utilize. Patient with significant R. LE with transfer attempts.) Gait Other: Unable to assess. MAX A x 2 to attempt sit to stand for use of sera steady to transfer, unable to tolerate do to right LE pain. Patient agreeable to use of MAXI SOLEDAD for mobility. Will continueto assess. Balance Sitting Balance: Static: Good, Fair Sitting Balance: Dynamic: Fair, Poor Standing Balance: Static: Poor Standing Balance: Dynamic: Poor 06/13/25 1102 LE Supine LE supine exercises performed? Yes Ankle pumps x 10 Gluteal sets x 3 (limited by pain in R. hip) Other Attempted LE ther ex to improve strength for overall reduced caregiver burden with transfers,but poor tolerance do to right hip pain. When asked why patient has right hip pain she states, they found an old fracture. Activity Tolerance Endurance: Tolerates <30 minutes activity WITHOUT vital sign changes Plan Physical Therapy Care Plan Physical Therapy Care Plan (Active) Template: PT - Physical Therapy Problem: Activity Tolerance Dates: Start: 06/11/25 Disciplines: PT Goal: Tolerate 30 minutes of activity WITH rest breaks Dates: Start: 06/11/25 Expected End: 06/20/25 Description: Goal Description: to improve ability to return home with support of family for mobility. Disciplines: PT Outcomes Date/Time User Outcome 06/13/251310 Maryanne Hernandez, PT Progressing Goal Note filed on 06/13/251310 by Maryanne Hernandez, PT Evaluation of progress towards goal: tolerates 29 minutes of co-treat with OT this date. Limited inmobility by R. Hip pain. Problem: Bed Mobility Dates: Start: 06/11/25 Disciplines: PT Goal: Patient will perform bed mobility with Moderate Assist Dates: Start: 06/11/25 Expected End: 06/20/25 Description: Goal Description: x 2 and hospital bed functions do to improving knowledge of log roll/reverse log roll technique to reduce back pain with mobility. Disciplines: PT Outcomes Date/Time User Outcome 06/13/251310 Maryanne Hernandez, PT Progressing Goal Note filed on 06/13/251310 by Maryanne Hernandez, PT Evaluation of progress towards goal: MOD A with hospital bed functions and bed rail. Problem: Gait Dates: Start: 06/11/25 Disciplines: PT Goal: Patient will perform gait with Moderate Assist Dates: Start: 06/11/25 Expected End: 06/20/25 Description: With__RW__,_6___feet Goal Description: to negotiate short functional distances to/from BSC and to/from chair for meals. Disciplines: PT Problem: Transfers Dates: Start: 06/11/25 Disciplines: PT Goal: Patient will perform transfers with Moderate Assist Dates: Start: 06/11/25 Expected End: 06/20/25 Description: Goal Description: x 2 and use of walker do to improving LE strength and to reduce caregiver burden upon return home. Disciplines: PT Physical Therapy Care Plan (Resolved) There are no resolved problems. Principal Problem: UTI (urinary tract infection) Active Problems: GERD without esophagitis 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 mellitus ([facility]) Anemia, chronic disease Obstructive sleep apnea syndrome Essential (primary) hypertension Stage 3b chronic kidney disease ([facility]) Generalized muscle weakness Iron deficiency anemia Hypomagnesemia * PT/OT/FELT COVERER - DELFINO Alfaro - 06/12/2025 2:49 PM EDT Occupational Therapy Treatment Discharge Recommendations for Safe Patient Transition Discharge Recommendations: Post acute - moderate Post Acute Moderate Rehab Needs: Recommend moderate intensity rehab (refer to OT eval) 6 Clicks: Daily Activity Putting on and taking off regular lower body clothing?: Total Bathing (including washing, rinsing, drying)?: Total Toileting, which includes using toilet, bedpan or urinal?: Total Putting on and taking off regular upper body clothing?: Total Taking care of personal grooming such as brushing teeth?: A lot Eating meals?: A little Scoring Daily Activity Raw Score: 9 CMS G Code Modifier: CL Therapy Plan Need for skilled Occupational Therapy to address deficits in ADL independence and functional mobility due to a status decline resulting from UTI OT Treatment/Interventions: ADL retraining, Functional transfer training, UE strengthening/ROM, Endurance training, Cognitive reorientation, Patient/family training, Equipment eval/education, Balance, Home management, Compensatory technique education, Functional activities OT Frequency: 4-5days/week OT Duration: 10 days Assessment Patient Assessment Therapy Problem List: Decreased ADL status, Decreased balance, Decreased cognition, Decreased endurance, Decreased gross motor, Decreased high-level ADLs, Decreased mobility, Decreased safe judgementduring ADL, Decreased self- care trans, Decreased UE strength, Decreased LE strength Patient Response to Treatment: Progressing toward goals, Improving as expected Mood/Affect: Flat Rehab Prognosis: Fair, Guarded, With continued OT status post acute discharge Visit RN Communication: Yes Medical Record Reviewed: Yes OT Type of Visit: Treatment Precautions Activity: early mobility fail; ok to treat per Hedy PIERRE Equipment: non-skid socks, gait belt, IV, pure wick Telemetry/Director Of Land Acquisition: Yes Oxygen Used: room air Other: fall risk, confusion, back pain Subjective Occupational Therapy Comments: I already got washed up and changed my gown. I just cant get up, ithurts too bad. referring to R hip Pain Assessment Pain Assessment: 0-10 Pain Score: 10 Pain Location: Hip Pain Orientation: Right Pain Intervention(s): (returned back to bed) Response to Interventions: Pain improved (11/24 when not moving) ADL / IADL Other: Decline ADL completion, agreeable for UE exercises. Home Management - IADL Other: Decline ADL completion, agreeable for UE exercises. Hearing / Speech / Vision Hearing: Hard of hearing/hearing concerns Bed Mobility Other: Unable to tolerate sitting at EOB d/t increase in pain in R LE with any movement. At rest ptpain 11/24 Transfers Other: Unable to assess, as pt pain increasing with bed mobility attempts to unbearable tolerance Balance Sitting Balance: Static: Fair Sitting Balance: Dynamic: Fair 06/12/25 1425 UE ROM UE ROM exercises performed? Yes Shoulder elevation X Shoulder flexion/extension X Shoulder abduction/adduction X Shoulder horizontal abduction/adduction X Shoulder external rotation/internal rotation X Elbow flexion/extension X Forearm supination/pronation X Wrist flexion/extension X Wrist ulnar/radial deviation X Digital flexion/extension X Other Engaged and facilitated pt in exercises listed per grid above to continue to improve her overall functional strengtrh and endurance required for ADLs and functional transfers. Pt toleraetd exercises well with minimal rest breaks. Visual and verbal cueing provided for technique and form. Repetitions 10 Activity Tolerance Endurance: Tolerates <30 minutes activity WITHOUT vital sign changes Plan Occupational Therapy Care Plan Occupational Therapy Care Plan (Active) Template: OT - Occupational Therapy Problem: Activity Tolerance Dates: Start: 06/11/25 Disciplines: OT Goal: Tolerate > 30 minutes of activity WITH rest breaks Dates: Start: 06/11/25 Expected End: 06/20/25 Description: Goal Description:patient to engage in activities of choice with out changes in vitals in order to promote return to prior level of function Disciplines: OT Problem: Other (Customize) Dates: Start: 06/11/25 Disciplines: OT Goal: Improve Dates: Start: 06/11/25 Expected End: 06/20/25 Description: Goal Description:Patient to increase IND in ADls to mod assist including toileting tasks and transfers in order to promote return to prior level of function Disciplines: OT Problem: Standing Balance Dates: Start: 06/11/25 Disciplines: OT Goal: Improve balance to good Dates: Start: 06/11/25 Expected End: 06/20/25 Description: Patient to increase standing balance to good in order to increase IND in ADLS and lower body dressing tasks Disciplines: OT Problem: Strength Dates: Start: 06/11/25 Disciplines: OT Goal: Improve strength Dates: Start: 06/11/25 Expected End: 06/20/25 Description: Of extremity/ location:pt to increase BUE strength to 4/5 to assist with increased independence in ADL tasks To facilitate: Disciplines: OT Outcomes Date/Time User Outcome 06/12/25 1449 JAMIE Alfaro/Trice Progressing Goal Note filed on 06/12/25 144 by JAMIE Alfaro/Trice Evaluation of progress towards goal: BUE HEP established. Occupational Therapy Care Plan (Resolved) There are no resolved problems. Principal Problem: UTI (urinary tract infection) Active Problems: GERD without esophagitis 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 mellitus ([facility]) Anemia, chronic disease Obstructive sleep apnea syndrome Essential (primary) hypertension Stage 3b chronic kidney disease ([facility]) Generalized muscle weakness Iron deficiency anemia Hypomagnesemia Cosigned by Juana Ramsey OTR/L at 06/12/2025 2:53 PM EDT Associated attestation - Juana Ramsey OTR/Trice - 06/12/2025 2:53 PM EDT I have reviewed and agree with this note and education documentation for this visit. * Discharge Planning Note - Penny Stevenson - 06/12/2025 10:21 AM EDT DISCHARGE PLANNING NOTE Prior Auth approved for admission to : [facility] [place] (P# ; F# ) Approval #[id number] Valid for Dates: 06.12.2025-06.18.2025 * Discharge Planning Note - Purvi Cardenas RN - 06/12/2025 9:24 AM EDT DISCHARGE PLANNING NOTE Cuca Dee Discharge is planned for 1-2 days for skilled return to [place]. Tasked pre- certification team to begin insurance authorization. Patient Discharge Plan: Return to [place] for Half-Way Care (accepted via telephone - Angélica ). Pending insurance authorization. Plan of Care: [facility] ([facility]) [phone] Fax CRF at Discharge Added to AVS: [place], please call and schedule a follow up appointment in 10 days of return tofacility. - Purvi Cardenas RN 06/12/25 9:24 AM Insurance authorization received. Hospitalist and PCN notified. Patient Discharge Plan: Return to [place] for Half-Way Care (accepted via telephone - Angélica ). Insurance authorization received and valid 06/12 - 06/18/2025. Plan of Care: [facility] ([facility]) [phone] Fax CRF at Discharge Added to AVS: [place], please call and schedule a follow up appointment in 10 days of return tofacility. - Purvi Cardenas RN 06/12/25 10:30 AM * PT/OT/FELT COVERER - DANDRE Vargas/Trice - 06/12/2025 7:20 AM EDT Occupational Therapy OT Type of Visit: Medical deferral Reason For Medical Deferral: Provider input needed (for Pathologic fractures of the right greater and lesser trochanters.) OT defers at this time and awaits provider input regarding WB status due to Pathologic fractures ofthe right greater and lesser trochanters. Innumerable lytic lesions scattered throughout the spine and pelvis with compression deformity of L1 vertebral body. These have worsened since previous study. There is a pathologic fracture of the right greater trochanter and right lesser trochanter. * Wound Care - Yennifer Lloyd RN - 06/11/2025 2:42 PM EDT ET nurse note: Cale score of 16. Patient has scattered abrasions. Remaining pressure points clear. Per patients nurse. Skin protocols on chart. Continue to follow wound care order set and turn patient every 2 hours. No additional concerns at this time. Please consult Wound Care Services with any new skin concerns. * Discharge Planning Note - Purvi Cardenas RN - 06/11/2025 2:20 PM EDT Images from the original note were not included. Discharge Planning Assessment Cuca Augusto Dee Admit Status: Observation Meet: Yes Readmission Risk: N/A. Date of Admission: 06/11/2025 GMLOS: Observation < 48 hours Target Discharge Date: 06/13/2025 Discharge Planning Assessment completed atBedside. Logistics Solution Manager identified self and role to the patient. Patient is agreeable to the assessment and discussion of a safe discharge plan. Initial Assessment Flowsheet Row Most Recent Value Patient Information Initial Pre-Hospitalization Assessment Completed? Completed Primary Caregiver Family [at home she lived with daughter Ileana.] Support System Children Discharge Planning Living Arrangements Adult Child(cole), Family members [Daughter and grandson live with her.] Assistance Needed Patient is dependent on care at this time from the skilled facility. 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 Patient is alert and oriented at present. She does not endorse financial barriers when she is at home to food, medications or utilities. Type of Residence Other (Comment) [SNF] Home Care Services No Type of Home Care Services Nurse visit Community Referrals / Resources Provided Denies needs Stressors Income Information Income Information Retired/Pension/Social Security IP Hunger/Food Insecurity Screening Hunger Screening Complete? Yes Pt. Eligible for Food / Voucher No If Eligible: Received Food Box Not Offered to Patient Warm Handoff Complete Caregiver/Family Member Caregiver/Family Member Patient is alert and oriented. Caregiver/Support System Limitations Caregiver/Support Systems Limitations (Check All That Apply) No Caregiver Needed Patient/Caregiver Goals Community Provider Referral Services Requested Patient expects to be discharged to: Return to [place] for SNF Does the patient wish to have family/friend/caregiver involved in their discharge planning? No, thepatient does not wish to have family/friend/caregiver involved in their discharge planning Discharge Disposition Skilled Return Does the patient need discharge transportation arranged? Yes Transportation Arranged Ambulance Patient choice offered Patient declined List Provided Patient declined Patient Declined Active with Provider DC Planning Complete Discharge Milestones Yes [facility]acy: [facility] PCP: Adis Gray CNP Consulting Providers this admission: None Patient will make her own follow up appointments: no To be made by SNF Patient Goals: Goals SNF (pt-stated) Evaluation of progress towards goal: Patient agrees she will need skilled care as a result of the fracture she has. PT Recommends: Pending evaluation OT Recommends: Score = 8; SNF Plan to prevent readmission: Return to SNF Patient does not endorse any questions at this time. Patient Discharge Plan: Return to [place] for Half-Way Care (accepted via telephone - Angélica ). Patient will need new insurance authorization and can be requested once the PT evaluation iscompleted. Plan of Care: [facility] (SNF) [phone] Fax CRF at Discharge Added to AVS: [place], please call and schedule a follow up appointment in 10 days of return tofacility. Purvi Cardenas RN 06/11/25 2:24 PM * Discharge Planning Note - Pina Meadows - 06/11/2025 1:50 PM EDT DISCHARGE PLANNING NOTE Referral sent to [facility]/ [facility], [place], [place] (P# ; F# ) * PT/OT/FELT COVERER - Juana Ramsey, OTR/L - 06/11/2025 1:14 PM EDT Occupational Therapy Evaluation (Completed with PT due to decreased activity tolerance and confusion / decreased safety awarness, in order to maximize patient's functional status) Discharge Recommendations for Safe Patient Transition Discharge Recommendations: Post acute - moderate Post Acute Moderate Rehab Needs: Tolerate 1-2 hrs of therapy 3-5 days/wk, Recommend moderate intensity rehab, Subacute or chronic functional impairment Current Impairments Informing Therapy Recommendation: Ambulation status/safety, Fall risk, ADL status, Endurance level, Cognition Director Housekeeping Support for-: Mobility Deficits, ADL Deficits, Cognitive Impairments 6 Clicks: Daily Activity Putting on and taking off regular lower body clothing?: Total Bathing (including washing, rinsing, drying)?: Total Toileting, which includes using toilet, bedpan or urinal?: Total Putting on and taking off regular upper body clothing?: Total Taking care of personal grooming such as brushing teeth?: A lot Eating meals?: A lot Scoring Daily Activity Raw Score: 8 CMS G Code Modifier: CM Therapy Plan/HPI/occupational profile throughout eval Need for skilled Occupational Therapy to address deficits in ADL independence and functional mobility due to a status decline resulting from UTI. A high complex eval was completed. Past Surgical History: Procedure Laterality Date BREAST BIOPSY Right 03/01/2023 ULT BIOPSY CATARACT EXTRACTION SECTION SECTION 03/14/1974 EGD N/A 10/17/2019 Performed by Sang eBll DO at [facility] H-PERCUTANEOUS CORONARY INTERVENTION HYSTEROSCOPY DILATION CURETTAGE MYOSURE N/A 01/29/2021 Performed by Jv Briones MD at [facility] INJECTION BLOCK EPIDURAL CAUDAL STEROID N/A 08/14/2022 Performed by Arnulfo Gonzalez MD at [facility] INJECTION BLOCK EPIDURAL CAUDAL STEROID N/A 06/06/2021 Performed by Arnulfo Gonzalez MD at [facility] INJECTION BLOCK EPIDURAL CAUDAL STEROID N/A 04/25/2021 Performed by Arnulfo Gonzalez MD at [facility] INJECTION CAUDAL EPIDURAL WITH CATHETER, STEROID N/A 05/03/2020 Performed by Arnulfo Gonzalez MD at [facility] INJECTION CAUDAL EPIDURAL WITH CATHETER, STEROID N/A 11/24/2019 Performed by Arnulfo Gonzalez MD at [facility] INJECTION CAUDAL EPIDURAL WITH CATHETER, STEROID N/A 04/21/2019 Performed by Arnulfo Gonzalez MD at [facility] INJECTION MEDIAL BRANCH NERVE BLOCK Bilateral L 4/5, 5/1 Bilateral 08/18/2019 Performed by Arnulfo Gonzalez MD at [facility] INJECTION MEDIAL BRANCH NERVE BLOCK Bilateral L 4/5, 5/1 Bilateral 06/23/2019 Performed by Arnulfo Gonzalez MD at [facility] INJECTION STEROID EPI 1 WITH SEDATION Right L 4, 5 NR Right 03/17/2019 Performed by Arnulfo Gonzalez MD at [facility] INJECTION STEROID EPI 1 WITH SEDATION: right L45 nroot Right 08/15/2018 Performed by Arnulfo Gonzalez MD at [facility] LEFT L4, AND 5 NERVE ROOT INJECTION 2 OF 2 Left 07/22/2018 Performed by Arnulfo Gonzalez MD at [facility] LEFT L4, AND L5 NERVE ROOT 1 OF 2 Left 07/04/2018 Performed by Arnulfo Gonzalez MD at [facility] SHUNT INSERTION TONSILLECTOMY AGE 4 Transcutaneous aortic valve replacement/Transfemoral/Kwan N/A 08/17/2023 Performed by Chava Norris MD at [facility] Valvuloplasty aortic N/A 06/03/2023 Performed by Chava Norris MD at [facility] Past Medical History: Diagnosis Date Anemia Arthritis Asthma very mild, no inhaler use Cataract Dental disease Depression Diabetes mellitus ([facility]) Diabetes mellitus type 2, controlled ([facility]) Encephalitis Foot fracture, left GERD (gastroesophageal reflux disease) Heart murmur HLD (hyperlipidemia) Hypertension Incontinence Injury of back Insulin dependent diabetes mellitus Kidney failure STAGE 4 Lumbar spondylolysis Murmur Obesity CHELSEA (obstructive sleep apnea) no machine Peptic ulceration Peripheral vascular disease Shortness of breath Stroke ([facility]) 02/27/2024 TIA (transient ischemic attack) Upper respiratory infection UTI (urinary tract infection) Visual impairment Wears dentures OT Treatment/Interventions: ADL retraining, Functional transfer training, UE strengthening/ROM, Endurance training, Cognitive reorientation, Patient/family training, Equipment eval/education, Balance, Home management, Compensatory technique education, Functional activities OT Frequency: 4-5days/week OT Duration: 10 days Assessment Patient Assessment Therapy Problem List: Decreased ADL status, Decreased balance, Decreased cognition, Decreased endurance, Decreased gross motor, Decreased high-level ADLs, Decreased mobility, Decreased safe judgementduring ADL, Decreased self- care trans, Decreased UE strength Patient Response to Treatment: Tolerated evaluation without adverse reaction Mood/Affect: Flat Rehab Prognosis: Fair, Guarded, With continued OT status post acute discharge Visit RN Communication: Yes Medical Record Reviewed: Yes OT Type of Visit: Evaluation (Completed with PT due to decreased activity tolerance and confusion /decreased safety awarness, in order to maximize patient's functional status) Precautions Activity: early mobility pass, OK to eval per Hedy PIERRE Equipment: non skid socks, walker, pure whick Telemetry/Director Of Land Acquisition: Yes Oxygen Used: room air Other: fall risk, confusion, back pain Pain Assessment Pain Assessment: 0-10 Pain Score: 10 Pain Location: Back Pain Intervention(s): Repositioned, Emotional support Home Living Type of Home: House Home Layout: One level Stairs to Enter: 1 Bathroom Shower/Tub: Tub/shower unit Bathroom Toilet: Raised Bathroom Equipment: Grab bars around toilet, Grab bars in shower Bathroom Accessibility: Accessible via walker Home Equipment: 4 Wheeled walker, Wheelchair-manual, Hospital bed Other : pt was recently at [place], appears that pt was being discharged from [place] and pt was to return home with yair, yair brought pt to Prior Function Lives With: Daughter (nd grandson- born a female , 19- he does not work, on the disability list . maria fernandather does not work she is on disability)) Receives Help From: Family Level of Mobility: Needs assistance with ADLs or functional transfers or gait (ambulated with RW inthe home, in the community use the rollator or wheelchair. has asist for tub transfers with use of shower chair) Homemaking Assistance: Needs assistance (joshugther completes all IADLS, maria fernandather wrecked car so theydon't have a car. groceries are being delivered.) Other: pt is a poor historain, sylvester need to clarify ADL / IADL Eating Assistance: Mod assist Grooming Assistance: Total assist Bathing/Showering Assistance: Total assist Toilet/Commode Assistance: Total assist UE Dressing Assistance: Max assist LE Dressing Assistance: Total assist Footwear Assistance: Total assist Other: ADL assessment is based on clincal judgement and observation of pt's ability to complete ROM, strength, endurance, sit and stand balance and functional mobility status and safety awareness Home Management - IADL Other: ADL assessment is based on clincal judgement and observation of pt's ability to complete ROM, strength, endurance, sit and stand balance and functional mobility status and safety awareness Hearing / Speech / Vision Hearing: Hard of hearing/hearing concerns Speech: Delayed responses (frequent states I don't know ) Cognition Orientation Level: Oriented to person Bed Mobility Supine to Sit: Min assist (head of bed elevated and use of bed rail, verbal cues for completion , increased time for completion , pt with increased report of back pain) Sit to Supine: Max assist (returned to supine, alarm on , needs with reach. summary of session provided to RN and recommend assist for feeding) Transfers Sit to Stand: Max assist (+2, cues for hand placement, completes with walker) Stand to Sit: Max assist (+2) Balance Sitting Balance: Static: Good, Fair Sitting Balance: Dynamic: Fair, Poor Standing Balance: Static: Poor Standing Balance: Dynamic: Poor Other: pt is abile to side steps 2 steps with RW and max assist +2 in order to increase strength and endurance as pt prepares for return to community RUE Assessment: (generalized weakness) LUE Assessment: (generalized weakness) Activity Tolerance Endurance: Tolerates <30 minutes activity WITHOUT vital sign changes Plan Occupational Therapy Care Plan Occupational Therapy Care Plan (Active) Template: OT - Occupational Therapy Problem: Activity Tolerance Dates: Start: 06/11/25 Disciplines: OT Goal: Tolerate > 30 minutes of activity WITH rest breaks Dates: Start: 06/11/25 Expected End: 06/20/25 Description: Goal Description:patient to engage in activities of choice with out changes in vitals in order to promote return to prior level of function Disciplines: OT Problem: Other (Customize) Dates: Start: 06/11/25 Disciplines: OT Goal: Improve Dates: Start: 06/11/25 Expected End: 06/20/25 Description: Goal Description:Patient to increase IND in ADls to mod assist including toileting tasks and transfers in order to promote return to prior level of function Disciplines: OT Problem: Standing Balance Dates: Start: 06/11/25 Disciplines: OT Goal: Improve balance to good Dates: Start: 06/11/25 Expected End: 06/20/25 Description: Patient to increase standing balance to good in order to increase IND in ADLS and lower body dressing tasks Disciplines: OT Problem: Strength Dates: Start: 06/11/25 Disciplines: OT Goal: Improve strength Dates: Start: 06/11/25 Expected End: 06/20/25 Description: Of extremity/ location:pt to increase BUE strength to 4/5 to assist with increased independence in ADL tasks To facilitate: Disciplines: OT Occupational Therapy Care Plan (Resolved) There are no resolved problems. Principal Problem: UTI (urinary tract infection) Active Problems: GERD without esophagitis 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 mellitus ([facility]) Anemia, chronic disease Obstructive sleep apnea syndrome Essential (primary) hypertension Stage 3b chronic kidney disease [place] [place] Generalized muscle weakness Iron deficiency anemia Hypomagnesemia Cosigned by Ildefonso Ballesteros MD at 06/11/2025 8:08 PM EDT * PT/OT/FELT COVERER - Maryanne Hernandez PT - 06/11/2025 10:04 AM EDT Physical Therapy Evaluation (Performed with OT to maximize patient's functional outcomes and improve activity tolerance.) Discharge Recommendations for Safe Patient Transition Discharge Recommendations: Post acute - moderate Post Acute Moderate Rehab Needs: Recommend moderate intensity rehab, Tolerate 1- 2 hrs of therapy 3-5 days/wk, Subacute or chronic functional impairment Current Impairments Informing Therapy Recommendation: Ambulation status/safety, Cognition, Fall risk, ADL status, Endurance level Director Housekeeping Support for-: Mobility Deficits, ADL Deficits, Cognitive Impairments 6 Clicks: Basic Mobility Turning from your back to your side while in a flat bed without using bed rails?: A lot Moving from lying on your back to sitting on side of flat bed without using bed rails?: A lot Moving to and from bed to a chair (including w/c)?: A lot Standing up from a chair using your arms (e.g. w/c or bedside chair)?: A lot To walk in hospital room?: Total Climbing 3-5 steps with a railing?: Total Scoring 6 Clicks: Basic Mobility Raw Score: 10 CMS G Code Modifier: CL Therapy Plan Need for skilled Physical Therapy to address deficits in functional mobility due to a status decline resulting from UTI with subsequent weakness and confusion. PT Treatment/Interventions: Functional transfer training, LE strengthening/ROM, Endurance training,Balance, Bed mobility, Gait training, Functional activities, Neuromuscular reeducation PT Frequency: 5-6days/week PT Duration: 10 days Assessment Patient Assessment Therapy Problem List: Decreased ADL status, Decreased balance, Decreased cognition, Decreased endurance, Decreased gross motor, Decreased high-level ADLs, Decreased mobility, Decreased safe judgementduring ADL, Decreased self- care trans, Decreased UE strength, Decreased LE strength Patient Response to Treatment: Tolerated evaluation without adverse reaction Mood/Affect: Flat Rehab Prognosis: Fair, Guarded, With continued PT status post acute discharge Visit RN Communication: Yes Medical Record Reviewed: Yes PT Type of Visit: Evaluation (Performed with OT to maximize patient's functional outcomes and improve activity tolerance.) Precautions Activity: early mobility fail; ok to evaulate per Hedy PIERRE Equipment: non-skid socks, gait belt, walker, pure wick Telemetry/Director Of Land Acquisition: Yes Oxygen Used: room air Other: fall risk, confusion, back pain Past Medical History: Diagnosis Date Anemia Arthritis Asthma very mild, no inhaler use Cataract Dental disease Depression Diabetes mellitus ([facility] [place]) Diabetes mellitus type 2, controlled ([facility] [place]) Encephalitis Foot fracture, left GERD (gastroesophageal reflux disease) Heart murmur HLD (hyperlipidemia) Hypertension Incontinence Injury of back Insulin dependent diabetes mellitus Kidney failure STAGE 4 Lumbar spondylolysis Murmur Obesity CHELSEA (obstructive sleep apnea) no machine Peptic ulceration Peripheral vascular disease Shortness of breath Stroke ([facility] [place]) 02/27/2024 TIA (transient ischemic attack) Upper respiratory infection UTI (urinary tract infection) Visual impairment Wears dentures Past Surgical History: Procedure Laterality Date BREAST BIOPSY Right 03/01/2023 ULT BIOPSY CATARACT EXTRACTION SECTION SECTION 03/14/1974 EGD N/A 10/17/2019 Performed by Sang Bell DO at [facility] H-PERCUTANEOUS CORONARY INTERVENTION HYSTEROSCOPY DILATION CURETTAGE MYOSURE N/A 01/29/2021 Performed by Jv Briones MD at [facility] INJECTION BLOCK EPIDURAL CAUDAL STEROID N/A 08/14/2022 Performed by Arnulfo Gonzalez MD at [facility] IN[facility] BLOCK EPIDURAL CAUDAL STEROID N/A 06/06/2021 Performed by Arnulfo Gonzalez MD at [facility] IN[facility] BLOCK EPIDURAL CAUDAL STEROID N/A 04/25/2021 Performed by Arnulfo Gonzalez MD at [facility] INJE[facility] CAUDAL EPIDURAL WITH CATHETER, STEROID N/A 05/03/2020 Performed by Arnulfo Gonzalez MD at [facility] CAUDAL EPIDURAL WITH CATHETER, STEROID N/A 11/24/2019 Performed by Arnulfo Gonzalez MD at [facility] IN[facility] CAUDAL EPIDURAL WITH CATHETER, STEROID N/A 04/21/2019 Performed by Arnulfo Gonzalez MD at [facility] MEDIAL BRANCH NERVE BLOCK Bilateral L 4/5, 5/1 Bilateral 08/18/2019 Performed by Arnulfo Gonzalez MD at [facility] MEDIAL BRANCH NERVE BLOCK Bilateral L 4/5, 5/1 Bilateral 06/23/2019 Performed by Arnulfo Gonzalez MD at [facility] STEROID EPI 1 WITH SEDATION Right L 4, 5 NR Right 03/17/2019 Performed by Arnulfo Gonzalez MD at [facility] STEROID EPI 1 WITH SEDATION: right L45 nroot Right 08/15/2018 Performed by Arnulfo Gonzalez MD at [facility] LEFT L4, AND 5 NERVE ROOT INJECTION 2 OF 2 Left 07/22/2018 Performed by Arnulfo Gonzalez MD at [facility] LEFT L4, AND L5 NERVE ROOT 1 OF 2 Left 07/04/2018 Performed by Arnulfo Gonzalez MD at [facility] SHUNT INSERTION TONSILLECTOMY AGE 4 Transcutaneous aortic valve replacement/Transfemoral/Kwan N/A 08/17/2023 Performed by Chava Norris MD at [facility] Valvuloplasty aortic N/A 06/03/2023 Performed by Chava Norris MD at [facility] Subjective Physical Therapy Comments: Oh God, Oh God. Pain Assessment Pain Assessment: 0-10 Pain Score: 10 Pain Location: Back Pain Intervention(s): Repositioned, Emotional support (Notified RN of request for pain medication.) Home Living Type of Home: House Home Layout: One level Stairs to Enter: 1 Bathroom Shower/Tub: Tub/shower unit Bathroom Toilet: Raised Bathroom Equipment: Grab bars around toilet, Grab bars in shower Bathroom Accessibility: Accessible via walker Home Equipment: 4 Wheeled walker, Wheelchair-manual, Hospital bed Other : CM reports patient recently at [place]. Patient reports from home with daughter. Daughter does IADLs and provides transportation. Patient performs pivot transfers mostly. States she doesn't walk much. Patient a poor historian today. Will need to clarify. Prior Function Lives With: Daughter (nd grandson- born a female , 19- he does not work, on the disability list . daugther does not work she is on disability)) Receives Help From: Family Level of Mobility: Needs assistance with ADLs or functional transfers or gait (Ambulates with RW inthe home, rollator vs. w/c in the community. Assist for tub transfers with use of shower chair.) Homemaking Assistance: Needs assistance (daugther completes all IADLS, daugther wrecked car so theydon't have a car. groceries are being delivered.) Other: Poor historian. Will need to clarify with family when able. Hearing / Speech / Vision Hearing: Hard of hearing/hearing concerns Speech: Delayed responses, Other (Comment) (States, I don't know, to answer PLOF questions.) Cognition Orientation Level: Oriented to person Sensation Overall Sensation Status: (Cognition limits ability to accurately assess.) Bed Mobility Supine to Sit: Min assist (head of bed elevated and use of bed rail, verbal cues for completion andsequencing. Increased time to complete do to complaints of back pain.) Sit to Supine: Max assist (returned to supine, alarm on, need within reach, set- up with breakfast. Denies further needs.) Other: Poor tolerance to standing this date. Complaints of back pain. RN aware. Transfers Sit to Stand: Max assist (x 2, cues for hand placement, completes with walker) Stand to Sit: Max assist (x 2, use of gait belt, verbal and tactile cues for safe hand placement and eccentric control.) Bed to Chair: (Unable to assess. Poor tolerance to EOB activity.) Gait Other: MAX A x 2 with walker and gait belt to take steps to right towards head of bed. Only achieve2 steps, poor foot clearance, very flexed trunk posture. High fall risk. Balance Sitting Balance: Static: Good, Fair Sitting Balance: Dynamic: Fair, Poor Standing Balance: Static: Poor Standing Balance: Dynamic: Poor RLE Assessment: (Hip 3/5, knee 3/5, ankle 4/5 grossly. Unable to assess sensation do to impaired cognition.) LLE Assessment: (Grossly 3/5 at hip, 3/5 at knee and at least 4/5 at ankle. Did not test sensation do to impaired cognition.) Activity Tolerance Endurance: Tolerates <30 minutes activity WITHOUT vital sign changes Plan Physical Therapy Care Plan Physical Therapy Care Plan (Active) Template: PT - Physical Therapy Problem: Activity Tolerance Dates: Start: 06/11/25 Disciplines: PT Goal: Tolerate 30 minutes of activity WITH rest breaks Dates: Start: 06/11/25 Expected End: 06/20/25 Description: Goal Description: to improve ability to return home with support of family for mobility. Disciplines: PT Problem: Bed Mobility Dates: Start: 06/11/25 Disciplines: PT Goal: Patient will perform bed mobility with Moderate Assist Dates: Start: 06/11/25 Expected End: 06/20/25 Description: Goal Description: x 2 and hospital bed functions do to improving knowledge of log roll/reverse log roll technique to reduce back pain with mobility. Disciplines: PT Problem: Gait Dates: Start: 06/11/25 Disciplines: PT Goal: Patient will perform gait with Moderate Assist Dates: Start: 06/11/25 Expected End: 06/20/25 Description: With__RW__,_6___feet Goal Description: to negotiate short functional distances to/from BSC and to/from chair for meals. Disciplines: PT Problem: Transfers Dates: Start: 06/11/25 Disciplines: PT Goal: Patient will perform transfers with Moderate Assist Dates: Start: 06/11/25 Expected End: 06/20/25 Description: Goal Description: x 2 and use of walker do to improving LE strength and to reduce caregiver burden upon return home. Disciplines: PT Physical Therapy Care Plan (Resolved) There are no resolved problems. Principal Problem: UTI (urinary tract infection) Active Problems: GERD without esophagitis 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 mellitus ([facility] [place]) Anemia, chronic disease Obstructive sleep apnea syndrome Essential (primary) hypertension Stage 3b chronic kidney disease (CMS-HCC) Generalized muscle weakness Iron deficiency anemia Hypomagnesemia Cosigned by Ildefonso Ballesteros MD at 06/11/2025 8:08 PM EDT documented in this encounter Plan of Treatment Upcoming Encounters Date Type Department Care Team (Late st Contact Info) Description 09/05/2025 1:00 PM EDT Office Visit [facility] - [facility] Medicine [address] [place] [address] Jaylan Gray, PANTS PRESSER [employer] INST[employer]ER [address], [facility] [address] [place] [address] documented as of this encounter Goals Goal Patient Goal Type Associated Problems Recent Progress Patient-Stated? Author SN[facility] General Yes Purvi Cardenas, RN Note: Evaluation of progress towards goal: Patient agrees she will need skilled care as a result of the fracture she has. documented as of this encounter Procedures Procedure Name Priority Date/Time Associated Diagnosis Comments BEDSIDE GLUCOSE Routine 06/13/2025 11:04 AM EDT EXTRA TUBES BLUE TOP Routine 06/13/2025 5:44 AM EDT EXTRA TUBES Routine 06/13/2025 5:44 AM EDT CBC WITH AUTO DIFFERENTIAL Routine 06/13/2025 5:44 AM EDT MAGNESIUM Routine 06/13/2025 5:44 AM EDT COMPREHENSIVE METABOLIC PANEL Routine 06/13/2025 5:44 AM EDT URINALYSIS STAT 06/13/2025 1:01 AM EDT URINE CULTURE STAT 06/13/2025 1:01 AM EDT BEDSIDE GLUCOSE Routine 06/12/2025 9:08 PM EDT BEDSIDE GLUCOSE Routine 06/12/2025 4:38 PM EDT BEDSIDE GLUCOSE Routine 06/12/2025 12:02 PM EDT BEDSIDE GLUCOSE Routine 06/12/2025 7:58 AM EDT CBC WITH AUTO DIFFERENTIAL Routine 06/12/2025 4:52 AM EDT MAGNESIUM Routine 06/12/2025 4:52 AM EDT COMPREHENSIVE METABOLIC PANEL Routine 06/12/2025 4:52 AM EDT BEDSIDE GLUCOSE Routine 06/11/2025 8:50 PM EDT BEDSIDE GLUCOSE Routine 06/11/2025 4:41 PM EDT BEDSIDE GLUCOSE Routine 06/11/2025 2:44 PM EDT BEDSIDE GLUCOSE Routine 06/11/2025 9:13 AM EDT APTT Routine 06/11/2025 5:17 AM EDT PLATELET COUNT Routine 06/11/2025 5:17 AM EDT HEMOGLOBIN Routine 06/11/2025 5:17 AM EDT EXTRA TUBES PST TOP Routine 06/11/2025 5 :16 AM EDT EXTRA TUBES Routine 06/11/2025 5:16 AM EDT MAGNESIUM Add-On 06/11/2025 5:16 AM EDT TROP I, HIGH SENSITIVITY 1 HOUR STAT 06/11/2025 2:[address] ABDOMEN AND PELVIS WO CONT STAT 06/11/2025 2:11 AM EDT XR CHEST 1 VW STAT 06/11/2025 2:11 AM EDT TROPONIN I, HIGH SENSITIVITY 0 HOUR STAT 06/11/2025 12:58 AM EDT EXTRA TUBES BLUE TOP Routine 06/11/2025 12:58 AM EDT TROPONIN I, HIGH SENSITIVITY 0 HOUR STAT 06/11/2025 12:58 AM EDT THYROID PROFILE INCLUDES TSH FT4 STAT 06/11/2025 12:58 AM EDT EXTRA TUBES Routine 06/11/2025 12:58 AM EDT CBC WITH AUTO DIFFERENTIAL STAT 06/11/2025 12:58 AM EDT B-TYPE NATRIURETIC PEPTIDE STAT 06/11/2025 12:58 AM EDT MAGNESIUM STAT 06/11/2025 12:58 AM EDT CK TOTAL STAT 06/11/2025 12:58 AM EDT COMPREHENSIVE METABOLIC PANEL STAT 06/11/2025 12:58 AM EDT ECG 12-LEAD STAT 06/11/2025 12:51 AM EDT documented in this encounter Results * (ABNORMAL) Bedside Glucose *Place/Obtain serum glucose if >500 per glucometer. (06/13/2025 11:04AM EDT) Bedside Glucose (POC) 336(H) 65 - 99 mg/dL 06/13/2025 11:13 AM EDT [facility] arterial/capilla ry 06/13/2025 11:04 AM EDT 06/13/2025 11:13 AM EDT us Ildefonso Ballesteros MD POINT OF CARE TEST ORDERABLES Final Result Performing Organization Address City/[facility]/ZIP Co de Phone Number [address] [place] [address], [place] * Light Blue Top (06/13/2025 5:44 AM EDT) Extra Tube Auto Resulted 06/13/2025 7:01 AM EDT [facility] Blood Venous blood / Unknown 06/13/2025 5:44 AM EDT 06/13/2025 5:51 AM EDT us Ildefonso Ballesteros MD LAB BLOOD ORDERABLES Final Res ult Performing Organization Address [facility] Co de Phone Number [address] [place] [address], [place] * (ABNORMAL) CBC auto differential (06/13/2025 5:44 AM EDT) WBC 6.8 4 - 11 x10E9/L 06/13/2025 5:56 AM EDT [facility] RBC Count 3.45(L) 3.8 - 5.2 X10E12/L 06/13/2025 5:56 AM EDT [facility] Hemoglobin 9.2(L) 11.7 - 15.5 g/dL 06/13/2025 5:56 AM EDT [facility] Hematocrit 28.0(L) 35 - 47 % 06/13/2025 5:56 AM EDT [facility] MCV 81 80 - 100 fL 06/13/2025 5:56 AM EDT [facility] MCH 26.7(L) 27 - 34 pg 06/13/2025 5:56 AM EDT [facility] MCHC 33.0 32 - 36 g/dL 06/13/2025 5:56 AM EDT [facility] RDW 16.5(H) 11.5 - 15 % 06/13/2025 5:56 AM EDT [facility] Platelet Count 226 150 - 450 X10E9/L 06/13/2025 5:56 AM EDT [facility] MPV 8.2 7 - 12 fL 06/13/2025 5:56 AM EDT [facility] Neutrophils % 50.3 % 06/13/2025 5:56 AM EDT [facility] Lymphocytes % 31.9 % 06/13/2025 5:56 AM EDT [facility] Monocytes % 12.4 % 06/13/2025 5:56 AM EDT [facility] Eosinophils % 4.0 % 06/13/2025 5:56 AM EDT [facility] Basophils % 1.4 % 06/13/2025 5:56 AM EDT [facility] Neutrophils Absolute (A) 3.4 1.5 - 6.6 10*3/uL 06/13/2025 5:56 AM EDT [facility] Lymphocytes Absolute 2.2 1.0 - 3.5 10*3/uL 06/13/2025 5:56 AM EDT [facility] Monocytes Absolute 0.8 0.0 - 0.9 10*3/uL 06/13/2025 5:56 AM EDT [facility] Eosinophils Absolute 0.3 0.0 - 0.4 10*3/uL 06/13/2025 5:56 AM EDT [facility] Basophils Absolute 0.1 0.0 - 0.2 10*3/uL 06/13/2025 5:56 AM EDT [facility] Differential Type AUTOMATED DIFFERENTIAL 06/13/2025 5:56 AM EDT [facility] Blood Venous blood / Unknown Venipuncture / Unknown 06/13/2025 5:44 AM EDT 06/13/2025 5:48 AM EDT Nayana Bermudez P[employer]S [employer]ER [employer] INST[employer]ER LAB BLOOD ORDERABLES Bing l Result Performing Organization Address City/[facility]/ZIP Co de Phone Number [address] [place] [address], [place] * Magnesium (06/13/2025 5:44 AM EDT) MAGNESIUM 2.0 1.8 - 2.6 mg/dL 06/13/2025 7:03 AM EDT [facility] Blood Venous blood / Unknown Venipuncture / Unknown 06/13/2025 5:44 AM EDT 06/13/2025 5:48 AM EDT Surajisaiahmadeline Bermudez PANTS PR[employer]ER [employer] INST[employer]ER LAB BLOOD ORDERABLES Bing l Result Performing Organization Address [facility] Co de Phone Number [address] [place] [address], [place] * (ABNORMAL) Comprehensive metabolic panel (06/13/2025 5:44 AM EDT) SODIUM 140 134 - 146 mmol/L 06/13/2025 7:03 AM EDT [facility] POTASSIUM 3.8 3.5 - 5.0 mmol/L 06/13/2025 7:03 AM EDT [facility] CHLORIDE 106 98 - 109 mmol/L 06/13/2025 7:03 AM EDT [facility] CARBON DIOXIDE 26 22 - 32 mmol/L 06/13/2025 7:03 AM EDT [facility] ANION GAP 8 5 - 15 mmol/L 06/13/2025 7:03 AM EDT [facility] BLOOD UREA NITROGEN 18 5 - 27 mg/dL 06/13/2025 7:03 AM EDT [facility] CREATININE 1.28(H) 0.40 - 1.00 mg/dL 06/13/2025 7:03 AM EDT [facility] Comment:METHOD TRACEABLE TO IDMS STANDARD GLUCOSE 160(H) 65 - 99 mg/dL 06/13/2025 7:03 AM EDT [facility] CALCIUM 8.8 8.5 - 10.5 mg/dL 06/13/2025 7:03 AM EDT [facility] TOTAL PROTEIN 6.3 6.0 - 8.0 g/dL 06/13/2025 7:03 AM EDT [facility] ALBUMIN 2.9(L) 3.2 - 5.3 g/dL 06/13/2025 7:03 AM EDT [facility] ALKALINE PHOSPHATASE 104 39 - 130 U/L 06/13/2025 7:03 AM EDT [facility] AST 14 <=41 U/L 06/13/2025 7:03 AM EDT [facility] ALT 8 <=31 U/L 06/13/2025 7:03 AM EDT [facility] BILIRUBIN,TOTAL 0.3 0.3 - 1.2 mg/dL 06/13/2025 7:03 AM EDT [facility] EGFR Non-Race Dependent 43(L) >=60 ml/min/1.7 3sq.m 06/13/2025 7:03 AM EDT [facility] Comment: eGFR not reported due to non-numeric value for Creatinine. Reported eGFR is based on the CKD-EPI 2020 equation that does not use a race coefficient. Blood Venous blood / Unknown Venipuncture / Unknown 06/13/2025 5:44 AM EDT 06/13/2025 5:48 AM EDT us Nayana Bermudez PANTS PRESSER [employer] INST[employer]ER LAB BLOOD ORDERABLES Bing l Result [facility] [address] [place] [address], * Urine Culture Urine, Clean Catch Midstream (06/13/2025 1:01 AM EDT) CULTURE RESULTS <10,000 ORGANISMS/m L NORMAL URO GENITAL BAILEY 06/14/2025 6:48 AM EDT [facility] Urine Urine specimen collection, clean catch / Unknown 06/13/2025 1:01 AM EDT 06/13/2025 1:12 AM EDT us Prem Day MD MICROBIOLOGY - GENERAL ORDERA BLES Final Result [facility] [address] [place] [address], [place] [phone] * (ABNORMAL) Urinalysis (06/13/2025 1:01 AM EDT) COLOR Yellow Yellow 06/13/2025 1:56 AM EDT [facility] TURBIDITY Clear Clear 06/13/2025 1:56 AM EDT [facility] SPECIFIC GRAVITY 1.025 1.003 - 1.035 06/13/2025 1:56 AM EDT [facility] NITRITE Negative Negative 06/13/2025 1:56 AM EDT [facility] PH,URINE 6.0 5.0 - 8.5 06/13/2025 1:56 AM EDT [facility] LEUKOCYTE ESTERASE Negative Negative 06/13/2025 1:56 AM EDT [facility] PROTEIN Trace(A) Negative 06/13/2025 1:56 AM EDT [facility] KETONES (URINE) Negative Negative 1:56 AM EDT [facility] UROBILINOGEN 0.2 eu/dL 0.2 eu/dL, 1.0 eu/dL 06/13/2025 1:56 AM EDT [facility] BILIRUBIN (URINE) Negative Negative 06/13/2025 1:56 AM EDT [facility] BLOOD/HGB Negative Negative 06/13/2025 1:56 AM EDT [facility] MUCOUS Present(A) None 06/13/2025 1:56 AM EDT [facility] GLUCOSE (URINE) Negative Negative, 250 mg/dL 06/13/2025 1:56 AM EDT [facility] Urine Urine specimen collection, clean catch / Unknown 06/13/2025 1:01 AM EDT 06/13/2025 1:12 AM EDT Prem Day MD URINE ORDERABLES Final Result Performing Organization Address City/[facility] Co de Phone Number [address] [place] [address], [place] * (ABNORMAL) Bedside Glucose *Place/Obtain serum glucose if >500 per glucometer. (06/12/2025 9:08 PM EDT) Bedside Glucose (POC) 229(H) 65 - 99 mg/dL 06/13/2025 3:06 AM EDT [facility] arterial/capilla ry 06/12/2025 9:08 PM EDT 06/13/2025 3:06 AM EDT us Ildefonso Ballesteros MD POINT OF CARE TEST ORDERABLES Final Result Performing Organization Address [facility] Co de Phone Number [address] [place] [address], [place] * (ABNORMAL) Bedside Glucose *Place/Obtain serum glucose if >500 per glucometer. (06/12/2025 4:38 PM EDT) Bedside Glucose (POC) 229(H) 65 - 99 mg/dL 06/13/2025 3:06 AM EDT [facility] arterial/capilla ry 06/12/2025 4:38 PM EDT 06/13/2025 3:06 AM EDT Ildefonso Ballesteros MD POINT OF CARE TEST ORDERABLES Final Result Performing Organization Address City/[facility]/ZIP Co de Phone Number [address] [place] [address], [place] * (ABNORMAL) Bedside Glucose *Place/Obtain serum glucose if >500 per glucometer. (06/12/2025 12:02PM EDT) Bedside Glucose (POC) 262(H) 65 - 99 mg/dL 06/12/2025 12:05 PM EDT [facility] arterial/capilla ry 06/12/2025 12:02 PM EDT 06/12/2025 12:05 PM EDT Ildefonso Ballesteros MD POINT OF CARE TEST ORDERABLES Final Result Performing Organization Address City/[facility] Co de Phone Number [facility] [address] [place] [address] [place] [address], [place] * (ABNORMAL) Bedside Glucose *Place/Obtain serum glucose if >500 per glucometer. (06/12/2025 7:58 AM EDT) Bedside Glucose (POC) 184(H) 65 - 99 mg/dL 06/12/2025 8:00 AM EDT [facility] arterial/capilla ry 06/12/2025 7:58 AM EDT 06/12/2025 8:00 AM EDT Ildefonso Ballesteros MD POINT OF CARE TEST ORDERABLES Final Result Performing Organization Address [facility] Co de Phone Number [address] [place] [address], [place] * (ABNORMAL) CBC auto differential (06/12/2025 4:52 AM EDT) WBC 7.4 4 - 11 x10E9/L 06/12/2025 5:59 AM EDT [facility] RBC Count 4.11 3.8 - 5.2 X10E12/L 06/12/2025 5:59 AM EDT [facility] Hemoglobin 10.9(L) 11.7 - 15.5 g/dL 06/12/2025 5:59 AM EDT [facility] Hematocrit 32.8(L) 35 - 47 % 06/12/2025 5:59 AM EDT [facility] MCV 80 80 - 100 fL 06/12/2025 5:59 AM EDT [facility] MCH 26.5(L) 27 - 34 pg 06/12/2025 5:59 AM EDT [facility] MCHC 33.2 32 - 36 g/dL 06/12/2025 5:59 AM EDT [facility] RDW 16.1(H) 11.5 - 15 % 06/12/2025 5:59 AM EDT [facility] Platelet Count 233 150 - 450 X10E9/L 06/12/2025 5:59 AM EDT [facility] MPV 9.1 7 - 12 fL 06/12/2025 5:59 AM EDT [facility] Neutrophils % 52.3 % 06/12/2025 5:59 AM EDT [facility] Lymphocytes % 29.1 % 06/12/2025 5:59 AM EDT [facility] Monocytes % 13.9 % 06/12/2025 5:59 AM EDT [facility] Eosinophils % 3.4 % 06/12/2025 5:59 AM EDT [facility] Basophils % 1.3 % 06/12/2025 5:59 AM EDT [facility] Neutrophils Absolute (A) 3.9 1.5 - 6.6 10*3/uL 06/12/2025 5:59 AM EDT [facility] Lymphocytes Absolute 2.2 1.0 - 3.5 10*3/uL 06/12/2025 5:59 AM EDT [facility] Monocytes Absolute 1.0(H) 0.0 - 0.9 10*3/uL 06/12/2025 5:59 AM EDT [facility] Eosinophils Absolute 0.3 0.0 - 0.4 10*3/uL 06/12/2025 5:59 AM EDT [facility] Basophils Absolute 0.1 0.0 - 0.2 10*3/uL 06/12/2025 5:59 AM EDT [facility] Differential Type AUTOMATED DIFFERENTIAL 06/12/2025 5:59 AM EDT [facility] Blood Venous blood / Unknown Venipuncture / Unknown 06/12/2025 4:52 AM EDT 06/12/2025 5:34 AM EDT Nayana Bermudez APRN-[facility] LAB BLOOD ORDERABLES Bing l Result Performing Organization Address City/[facility]/ZIP Co de Phone Number [address] [place] [address], [place] * Magnesium (06/12/2025 4:52 AM EDT) MAGNESIUM 2.4 1.8 - 2.6 mg/dL 06/12/2025 6:07 AM EDT [facility] Blood Venous blood / Unknown Venipuncture / Unknown 06/12/2025 4:52 AM EDT 06/12/2025 5:34 AM EDT Nayana Bermudez APRNENCOMPASS [facility] LAB BLOOD ORDERABLES Bing l Result Performing Organization Address City/[facility]/ZIP Co de Phone Number [address] [place] [address], [place] * (ABNORMAL) Comprehensive metabolic panel (06/12/2025 4:52 AM EDT) SODIUM 137 134 - 146 mmol/L 06/12/2025 6:07 AM EDT [facility] POTASSIUM 4.1 3.5 - 5.0 mmol/L 06/12/2025 6:07 AM EDT [facility] CHLORIDE 101 98 - 109 mmol/L 06/12/2025 6:07 AM EDT [facility] CARBON DIOXIDE 25 22 - 32 mmol/L 06/12/2025 6:07 AM EDT [facility] ANION GAP 11 5 - 15 mmol/L 06/12/2025 6:07 AM EDT [facility] BLOOD UREA NITROGEN 18 5 - 27 mg/dL 06/12/2025 6:07 AM EDT [facility] CREATININE 1.21(H) 0.40 - 1.00 mg/dL 06/12/2025 6:07 AM EDT [facility] Comment:METHOD TRACEABLE TO IDMS STANDARD GLUCOSE 157(H) 65 - 99 mg/dL 06/12/2025 6:07 AM EDT [facility] CALCIUM 8.9 8.5 - 10.5 mg/dL 06/12/2025 6:07 AM EDT [facility] TOTAL PROTEIN 7.2 6.0 - 8.0 g/dL 06/12/2025 6:07 AM EDT [facility] ALBUMIN 3.2 3.2 - 5.3 g/dL 06/12/2025 6:07 AM EDT [facility] ALKALINE PHOSPHATASE 115 39 - 130 U/L 06/12/2025 6:07 AM EDT [facility] AST 21 <=41 U/L 06/12/2025 6:07 AM EDT [facility] ALT 12 <=31 U/L 06/12/2025 6:07 AM EDT [facility] BILIRUBIN,TOTAL 0.6 0.3 - 1.2 mg/dL 06/12/2025 6:07 AM EDT [facility] EGFR Non-Race Dependent 46(L) >=60 ml/min/1.7 3sq.m 06/12/2025 6:07 AM EDT [facility] Comment: eGFR not reported due to non-numeric value for Creatinine. Reported eGFR is based on the CKD-EPI 2020 equation that does not use a race coefficient. Blood Venous blood / Unknown Venipuncture / Unknown 06/12/2025 4:52 AM EDT 06/12/2025 5:34 AM EDT us Nayana Bermudez [employer] LAB BLOOD ORDERABLES Bing l Result [facility] [address] [place] [address] [place] [address], [place] * (ABNORMAL) Bedside Glucose *Place/Obtain serum glucose if >500 per glucometer. (06/11/2025 8:50 PM EDT) Bedside Glucose (POC) 177(H) 65 - 99 mg/dL 06/11/2025 8:56 PM EDT [facility] arterial/capilla ry 06/11/2025 8:50 PM EDT 06/11/2025 8:56 PM EDT us Ildefonso Ballesteros MD POINT OF CARE TEST ORDERABLES Final Result Performing Organization Address [facility] Co de Phone Number [address] [place] [address], [place] * (ABNORMAL) Bedside Glucose *Place/Obtain serum glucose if >500 per glucometer. (06/11/2025 4:41 PM EDT) Bedside Glucose (POC) 197(H) 65 - 99 mg/dL 06/11/2025 4:51 PM EDT [facility] arterial/capilla ry 06/11/2025 4:41 PM EDT 06/11/2025 4:51 PM EDT us Ildefonso Ballesteros MD POINT OF CARE TEST ORDERABLES Final Result Performing Organization Address City/[facility]/ZIP Co de Phone Number [address] [place] [address], [place] * (ABNORMAL) Bedside Glucose *Place/Obtain serum glucose if >500 per glucometer. (06/11/2025 2:44 PM EDT) Bedside Glucose (POC) 151(H) 65 - 99 mg/dL 06/11/2025 2:59 PM EDT [facility] arterial/capilla ry 06/11/2025 2:44 PM EDT 06/11/2025 2:59 PM EDT us Ildefonso Ballesteros MD POINT OF CARE TEST ORDERABLES Final Result Performing Organization Address City/[facility]/ZIP Co de Phone Number [address] [place] [address], [place] * (ABNORMAL) Bedside Glucose *Place/Obtain serum glucose if >500 per glucometer. (06/11/2025 9:13 AM EDT) Bedside Glucose (POC) 185(H) 65 - 99 mg/dL 06/11/2025 5:21 PM EDT [facility] arterial/capilla ry 06/11/2025 9:13 AM EDT 06/11/2025 5:21 PM EDT us Ildefonso Ballesteros MD POINT OF CARE TEST ORDERABLES Final Result Performing Organization Address [facility] Co de Phone Number [address] [place] [address], [place] * Platelet count (06/11/2025 5:17 AM EDT) Platelet Count 287 150 - 450 X10E9/L 06/11/2025 6:04 AM EDT [facility] MPV 8.7 7 - 12 fL 06/11/2025 6:04 AM EDT [facility] Blood Venous blood / Unknown Venipuncture / Unknown 06/11/2025 5:17 AM EDT 06/11/2025 5:41 AM EDT us Nayana Bermudez [employer] LAB BLOOD ORDERABLES Bing l Result Performing Organization Address City/[facility]/ZIP Co de Phone Number [address] [place] [address], [place] * (ABNORMAL) Hemoglobin (06/11/2025 5:17 AM EDT) Hemoglobin 10.3(L) 11.7 - 15.5 g/dL 06/11/2025 6:04 AM EDT [facility] Blood Venous blood / Unknown Venipuncture / Unknown 06/11/2025 5:17 AM EDT 06/11/2025 5:41 AM EDT us Nayana Bermudez [employer] LAB BLOOD ORDERABLES Bing l Result Performing Organization Address [facility] Co de Phone Number [address] [place] [address], [place] * APTT (06/11/2025 5:17 AM EDT) APTT 27 26 - 37 sec 06/11/2025 6:08 AM EDT [facility] Blood Venous blood / Unknown Venipuncture / Unknown 06/11/2025 5:17 AM EDT 06/11/2025 5:41 AM EDT Nayana Bermudez APRN-[employer] LAB BLOOD ORDERABLES Bing l Result Performing Organization Address [facility] de Phone Number [address] [place] [address], [place] * (ABNORMAL) Magnesium (06/11/2025 5:16 AM EDT) MAGNESIUM 1.7(L) 1.8 - 2.6 mg/dL 06/11/2025 8:04 AM EDT [facility] Blood Venous blood / Unknown 06/11/2025 5:16 AM EDT 06/11/2025 5:48 AM EDT us Ildefonso Ballesteros MD LAB BLOOD ORDERABLES Final Res ult Performing Organization Address City/[facility] Co de Phone Number [address] [place] [address], [place] * PST TOP (06/11/2025 5:16 AM EDT) Extra Tube Auto Resulted 06/11/2025 7:01 AM EDT [facility] Blood Venous blood / Unknown 06/11/2025 5:16 AM EDT 06/11/2025 5:48 AM EDT Ildefonso Ballesteros MD LAB BLOOD ORDERABLES Final Res ult Performing Organization Address [facility]/ZIP Co de Phone Number [facility] [address] [place] [address] [place] [address], [place] * Troponin I, High Sensitivity 1 Hour (06/11/2025 2:11 AM EDT) TROPONIN I, HIGH SENSITIVITY 13 <16 ng/L 06/11/2025 2:43 AM EDT [facility] Blood Venous blood / Unknown Venipuncture / Unknown 06/11/2025 2:11 AM EDT 06/11/2025 2:15 AM EDT Prem Day MD LAB BLOOD ORDERABLES Final Re sult Performing Organization Address [facility] Co de Phone Number [address] [place] [address], [place] * CT abdomen and pelvis without contrast (06/11/2025 2:11 AM EDT) Anatomical Region Laterality Modality Body, Abdomen, Body Covera N/A Compu collin Tomography 06/11/2025 2:18 AM EDT Narrative 06/11/2025 2:[address] ABDOMEN AND PELVIS WITHOUT INTRAVENOUS CONTRAST HISTORY: Generalized weakness, flank pain COMPARISON: 01/10/2025 TECHNIQUE: Axial images through the abdomen and pelvis obtained with coronal and sagittal reformatted images. FINDINGS: Visualized lung bases are unremarkable. The liver, gallbladder, spleen, adrenal glands, pancreas, and kidneys are unremarkable. No enlarged abdominal or pelvic lymph nodes. Small fat-containing left inguinal hernia. Small left lateral bladder diverticulum. Left ovarian cystic lesion measuring approximately 6.6 cm, similar to previous study. Small amount of free fluid in the pelvis. There are foci of air within the endometrial cavity. Shunt tubing terminates in the left abdomen. Normal appendix. The small and large bowel are of normal caliber with no evidence of bowel wall thickening. Innumerable lytic lesions scattered throughout the spine and pelvis with compression deformity of L1 vertebral body. These have worsened since previous study. There is a pathologic fracture of the right greater trochanter and right lesser trochanter. IMPRESSION: * No acute abnormalities in the abdomen/pelvis. * Large left ovarian cystic lesion is unchanged. Small amount of free fluid in the pelvis present as well. * Foci of air within the endometrial cavity, nonspecific. Correlate for recent endometrial biopsy/procedure. Differential consideration would include endometritis. 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 Pathologic fractures of the right greater and lesser trochanters. All CT scans at this facility use dose modulation, iterative reconstruction, and/or weight based dosing when appropriate to reduce radiation dose to as low as reasonably achievable. Finalized by Ryan Dominguez MD on 06/11/2025 2:23 AM Procedure Note Ryan Dominguez MD - 06/11/2025 CT ABDOMEN AND PELVIS WITHOUT INTRAVENOUS CONTRAST HISTORY: Generalized weakness, flank pain COMPARISON: 01/10/2025 TECHNIQUE: Axial images through the abdomen and pelvis obtained withcoronal and sagittal reformatted images. FINDINGS: Visualized lung bases are unremarkable. The liver, gallbladder, spleen,adrenal glands, pancreas, and kidneys are unremarkable. No enlargedabdominal or pelvic lymph nodes. Small fat-containing left inguinalhernia. Small left lateral bladder diverticulum. Left ovarian cysticlesion measuring approximately 6.6 cm, similar to previous study. Small amount of freefluid in the pelvis. There are foci of air within the endometrial cavity.Shunt tubing terminates in the left abdomen. Normal appendix. The smalland large bowel are of normal caliber with no evidence of bowel wallthickening. Innumerable lytic lesions scattered throughout the spine and pelvis withcompression deformity of L1 vertebral body. These have worsened sinceprevious study. There is a pathologic fracture of the right greatertrochanter and right lesser trochanter. IMPRESSION: * No acute abnormalities in the abdomen/pelvis. * Large left ovarian cystic lesion is unchanged. Small amount of freefluid in the pelvis present as well. * Foci of air within the endometrial cavity, nonspecific. Correlate forrecent endometrial biopsy/procedure. Differential consideration wouldinclude endometritis. * Extensive osseous metastatic disease has progressed since previous CTfrom December 2024. Pathologic fractures of the right greater and lessertrochanters. All CT scans at this facility use dose modulation, iterativereconstruction, and/or weight based dosing when appropriate to reduceradiation dose to as low as reasonably achievable. Finalized by Ryan Dominguez MD on 06/11/2025 2:23 AM us Prem Day MD IMG CT ORDERABLES Final Resul t * X-ray chest 1 view (06/11/2025 2:11 AM EDT) Anatomical Region Laterality Modality Body, Chest N/A Computed Radiogr aphy 06/11/2025 2:15 AM EDT Narrative 06/11/2025 2:18 AM EDT XR CHEST 1 VW HISTORY: Weakness COMPARISON: Chest radiograph 06/08/2025, 05/13/2025, and 04/28/1985. FINDINGS: The trachea is midline. Stable cardiomediastinal silhouette. No pneumothorax or pleural effusion. No focal consolidation. Right ventriculoperitoneal shunt tubing appears stable. IMPRESSION: * No radiographic evidence of acute pulmonary process. Approved by Resident Javier Sanchez MD on 06/11/2025 2:15 AM IRyan MD have personally reviewed the image(s) and agree with and/or edited the report Finalized by Ryan Dominguez MD on 06/11/2025 2:18 AM Procedure Note Ryan Dominguez MD - 06/11/2025 XR CHEST 1 VW HISTORY: Weakness COMPARISON: Chest radiograph 06/08/2025, 05/13/2025, and 04/28/1985. FINDINGS: The trachea is midline. Stable cardiomediastinal silhouette. No pneumothorax or pleural effusion. No focal consolidation. Right ventriculoperitoneal shunt tubing appears stable. IMPRESSION: * No radiographic evidence of acute pulmonary process. Approved by Resident Javier Sanchez MD on 06/11/2025 2:15 AM I, Ryan Dominguez MD have personally reviewed the image(s) and agree withand/or edited the report Finalized by Ryan Dominguez MD on 06/11/2025 2:18 AM Prem Day MD IMG DIAGNOSTIC IMAGING ORDERA BLES Final Result * Light Blue Top (06/11/2025 12:58 AM EDT) Extra Tube Auto Resulted 06/11/2025 2:03 AM EDT [facility] Blood Venous blood / Unknown 06/11/2025 12:58 AM EDT 06/11/2025 1:00 AM EDT Prem Day MD LAB BLOOD ORDERABLES Final Re sult Performing Organization Address [facility] Co de Phone Number [address] [place] [address], [place] * (ABNORMAL) B-type natriuretic peptide (06/11/2025 12:58 AM EDT) BNP 161(H) <=100 pg/mL 06/11/2025 1:35 AM EDT [facility] Blood Venous blood / Unknown Venipuncture / Unknown 06/11/2025 12:58 AM EDT 06/11/2025 1:00 AM EDT Prem Day MD LAB BLOOD ORDERABLES Final Re sult Performing Organization Address [facility] Co de Phone Number [address] [place] [address], [place] * Troponin I, High Sensitivity 0 Hour (06/11/2025 12:58 AM EDT) TROPONIN I, HIGH SENSITIVITY 12 <16 ng/L 06/11/2025 1:36 AM EDT [facility] Blood Venous blood / Unknown Venipuncture / Unknown 06/11/2025 12:58 AM EDT 06/11/2025 1:00 AM EDT Prem Day MD LAB BLOOD ORDERABLES Final Re sult Performing Organization Address City/[facility]/ZIP Co de Phone Number [address] [place] [address], [place] * CK Total (06/11/2025 12:58 AM EDT) CPK 81 24 - 170 U/L 06/11/2025 1:28 AM EDT [facility] Blood Venous blood / Unknown Venipuncture / Unknown 06/11/2025 12:58 AM EDT 06/11/2025 1:00 AM EDT Prem Day MD LAB BLOOD ORDERABLES Final Re sult Performing Organization Address [facility] Co de Phone Number [address] [place] [address], [place] * Thyroid profile includes TSH FT4 (06/11/2025 12:58 AM EDT) FREE T4 1.59 0.61 - 1.60 ng/dL 06/11/2025 1:48 AM EDT [facility] TSH 2.32 0.49 - 4.67 uIU/mL 06/11/2025 1:48 AM EDT [facility] Blood Venous blood / Unknown Venipuncture / Unknown 06/11/2025 12:58 AM EDT 06/11/2025 1:00 AM EDT Prem Day MD LAB BLOOD ORDERABLES Final Re sult Performing Organization Address City/[facility]/ZIP Co de Phone Number [address] [place] [address], [place] * (ABNORMAL) Magnesium (06/11/2025 12:58 AM EDT) MAGNESIUM 1.6(L) 1.8 - 2.6 mg/dL 06/11/2025 1:28 AM EDT [facility] Blood Venous blood / Unknown Venipuncture / Unknown 06/11/2025 12:58 AM EDT 06/11/2025 1:00 AM EDT us Prem Day MD LAB BLOOD ORDERABLES Final Re sult [facility] [address] [place] [address], [place] * (ABNORMAL) Comprehensive metabolic panel (06/11/2025 12:58 AM EDT) SODIUM 133(L) 134 - 146 mmol/L 06/11/2025 1:28 AM EDT [facility] POTASSIUM 3.8 3.5 - 5.0 mmol/L 06/11/2025 1:28 AM EDT [facility] CHLORIDE 98 98 - 109 mmol/L 06/11/2025 1:28 AM EDT [facility] CARBON DIOXIDE 20(L) 22 - 32 mmol/L 06/11/2025 1:28 AM EDT [facility] ANION GAP 15 5 - 15 mmol/L 06/11/2025 1:28 AM EDT [facility] BLOOD UREA NITROGEN 19 5 - 27 mg/dL 06/11/2025 1:28 AM EDT [facility] CREATININE 1.32(H) 0.40 - 1.00 mg/dL 06/11/2025 1:28 AM EDT [facility] Comment:METHOD TRACEABLE TO IDMS STANDARD GLUCOSE 209(H) 65 - 99 mg/dL 06/11/2025 1:28 AM EDT [facility] CALCIUM 9.1 8.5 - 10.5 mg/dL 06/11/2025 1:28 AM EDT [facility] TOTAL PROTEIN 8.1(H) 6.0 - 8.0 g/dL 06/11/2025 1:28 AM EDT [facility] ALBUMIN 3.8 3.2 - 5.3 g/dL 06/11/2025 1:28 AM EDT [facility] ALKALINE PHOSPHATASE 128 39 - 130 U/L 06/11/2025 1:28 AM EDT [facility] AST 25 <=41 U/L 06/11/2025 1:28 AM EDT [facility] ALT 14 <=31 U/L 06/11/2025 1:28 AM EDT [facility] BILIRUBIN,TOTAL 1.1 0.3 - 1.2 mg/dL 06/11/2025 1:28 AM EDT [facility] EGFR Non-Race Dependent 41(L) >=60 ml/min/1.7 3sq.m 06/11/2025 1:28 AM EDT [facility] Comment: eGFR not reported due to non-numeric value for Creatinine. Reported eGFR is based on the CKD-EPI 2020 equation that does not use a race coefficient. Blood Venous blood / Unknown Venipuncture / Unknown 06/11/2025 12:58 AM EDT 06/11/2025 1:00 AM EDT us Prem Day MD LAB BLOOD ORDERABLES Final Re sult [facility] [address] [place] [address], * (ABNORMAL) CBC auto differential (06/11/2025 12:58 AM EDT) WBC 10.8 4 - 11 x10E9/L 06/11/2025 1:21 AM EDT [facility] RBC Count 3.94 3.8 - 5.2 X10E12/L 06/11/2025 1:21 AM EDT [facility] Hemoglobin 10.4(L) 11.7 - 15.5 g/dL 06/11/2025 1:21 AM EDT [facility] Hematocrit 31.6(L) 35 - 47 % 06/11/2025 1:21 AM EDT [facility] MCV 80 80 - 100 fL 06/11/2025 1:21 AM EDT [facility] MCH 26.3(L) 27 - 34 pg 06/11/2025 1:21 AM EDT [facility] MCHC 32.8 32 - 36 g/dL 06/11/2025 1:21 AM EDT [facility] RDW 16.2(H) 11.5 - 15 % 06/11/2025 1:21 AM EDT [facility] Platelet Count 318 150 - 450 X10E9/L 06/11/2025 1:21 AM EDT [facility] MPV 8.2 7 - 12 fL 06/11/2025 1:21 AM EDT [facility] Neutrophils % 76.8 % 06/11/2025 1:21 AM EDT [facility] Lymphocytes % 13.4 % 06/11/2025 1:21 AM EDT [facility] Monocytes % 8.8 % 06/11/2025 1:21 AM EDT [facility] Eosinophils % 0.6 % 06/11/2025 1:21 AM EDT [facility] Basophils % 0.4 % 06/11/2025 1:21 AM EDT [facility] Neutrophils Absolute (A) 8.3(H) 1.5 - 6.6 10*3/uL 06/11/2025 1:21 AM EDT [facility] Lymphocytes Absolute 1.4 1.0 - 3.5 10*3/uL 06/11/2025 1:21 AM EDT [facility] Monocytes Absolute 0.9 0.0 - 0.9 10*3/uL 06/11/2025 1:21 AM EDT [facility] Eosinophils Absolute 0.1 0.0 - 0.4 10*3/uL 06/11/2025 1:21 AM EDT [facility] Basophils Absolute 0.0 0.0 - 0.2 10*3/uL 06/11/2025 1:21 AM EDT [facility] Differential Type AUTOMATED DIFFERENTIAL 06/11/2025 1:21 AM EDT [facility] Blood Venous blood / Unknown Venipuncture / Unknown 06/11/2025 12:58 AM EDT 06/11/2025 1:00 AM EDT us Prem Day MD LAB BLOOD ORDERABLES Final Re sult [facility] [address] [place] [address], [place] * ECG 12 lead (06/11/2025 12:51 AM EDT) 06/11/2025 12:5 1 AM EDT Narrative TRACEMASTERVUE - 06/11/2025 10:18 PM EDT us Prem Day MD ECG ORDERABLES Final Result Performing Organization Address City/[facility] Co de Phone Number TRACEMASTERVUE documented in this encounter Visit Diagnoses Diagnosis UTI (urinary tract infection)- Primary Urinary tract infection, site not specified UTI (urinary tract infection) Urinary tract infection, site not specified GERD without esophagitis Esophageal reflux 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 mellitus ([facility]) Anemia, chronic disease Anemia of other chronic disease Obstructive sleep apnea syndrome Obstructive sleep apnea (adult) (pediatric) Essential (primary) hypertension Unspecified essential hypertension Stage 3b chronic kidney disease ([facility]) Generalized muscle weakness Muscle weakness (generalized) Iron deficiency anemia Unspecified iron deficiency anemia Hypomagnesemia Disorders of magnesium metabolism documented in this encounter Admitting Diagnoses Diagnosis UTI (urinary tract infection) Urinary tract infection, site not specified documented in this encounter Administered Medications Inactive Administered Medications - up to 3 most recent administrations Medication Order MAR Action Action Date Dose Rate Site acetaminophen (TYLENOL) tablet 650 mg 650 mg, oral, Every 4 hours PRN, mild pain - pain scale 1-3, temperature greater than 38 C, headaches, Temperature greater than 38.3 C, Starting on Wed06/11/25 at 0430, Scheduling/ADT, [Warning: Total Acetaminophen not to exceed more than 4 grams (4000 mg) in 24 hours] Given 06/13/2025 11:05 AM EDT 650 mg Given 06/12/2025 10:55 PM EDT 650 mg Given 06/12/2025 12:08 PM EDT 650 mg alum-mag hydroxide-simeth (MAALOX) 200-200-20 mg/5 mL suspension 30 mL 30 mL, oral, 4 times daily after meals and at bedtime as needed, dyspepsia, Starting on Wed06/11/25 at 0430, Scheduling/ADT, Look-alike/sound-alike medication - verify indication for use. Gus echeverria., Indications: dyspepsiaIndications:dyspepsia cefTRIAXone (ROCEPHIN) IVPB 1000 mg/50 mL in iso-osmotic dextrose (20 mg/mL premix) 1,000 mg, intravenous, at 100 mL/hr, Administer over 30 Minutes, Once, On Wed06/11/25 at 0040, For 1 dose, Look-alike/sound-alike medication - verify indication for use. Do not co-administer with calcium-containing solutions such as Lactated Ringers., Indication: UTI New Bag 06/11/2025 2:16 AM EDT 1,000 mg 100 mL/hr cefTRIAXone (ROCEPHIN) IVPB 2000 mg/50 mL in iso-osmotic dextrose (40 mg/mL premix) 2,000 mg, intravenous, at 100 mL/hr, Administer over 30 Minutes, Every 24 hours, First dose on Wed06/12/25 at 0200, Scheduling/ADT, Look-alike/sound-alike medication - verify indication for use. Do not co-administer with calcium-containing solutions such as Lactated Ringers., Indication: UTI New Bag 06/12/2025 1:51 AM EDT 2,000 mg 100 mL/hr CEPHalexin (KEFLEX) capsule 500 mg 500 mg, oral, 2 times daily, First dose on Wed06/12/25 at 2100, Look-alike/sound-alike medication - verify indication for use., Indication: UTI Given 06/13/2025 9:50 AM EDT 500 mg Given 06/12/2025 9:00 PM EDT 500 mg cyanocobalamin tablet 1,000 mcg 1,000 mcg, oral, Daily, First dose on Wed06/11/25 at 0915 Given 06/13/2025 9:50 AM EDT 1,000 mcg Given 06/12/2025 9:19 AM EDT 1,000 mcg Given 06/11/2025 11:22 AM EDT 1,000 mcg dextrose (GLUTOSE) 40 % gel 15 g 15 g, oral, As needed, low blood sugar, blood glucose less than 70 mg/dL, Starting on Wed06/11/25 at 0430, Scheduling/ADT, If patient conscious and taking PO. If blood glucose is not greater than 70 mg/dL after initial treatment, repeat treatment. dextrose 5 % (D5W) infusion 100 mL/hr, intravenous, Continuous PRN, blood glucose less than 70 mg/dL, Starting on Wed06/11/25 at 0430, Scheduling/ADT, Use immediately following dextrose 50% or glucagon treatment for patients who are unconscious or NPO. Contact prescriber for additional orders. If blood glucose is not greater than 70 mg/dL after initial treatment, repeat treatment. dextrose 50 % in water (D50W) 50% solution 25 mL 25 mL, intravenous, As needed, low blood sugar, blood glucose less than 70 mg/dL and unconscious or NPO with IV access, Starting on Wed06/11/25 at 0430, Scheduling/ADT, Push over 1-3 minutes STAT. If conscious and not NPO, immediately follow with meal tray or high protein (7 grams) snack if tray not available. If NPO, initiate 5% dextrose in water at 100 mL/hr and contact prescriber for additional orders. If blood glucose is not greater than 70 mg/dL after initial treatment, repeat treatment. VESICANT (RED) Warning: HYPERTONIC solution. ferrous sulfate tablet 325 mg 325 mg, oral, Daily with breakfast, First dose on Wed06/11/25 at 0915, Give ferrous sulfate 2 hours before or 4 hours after antacids. Given 06/13/2025 9:50 AM EDT 325 mg Given 06/12/2025 9:19 AM EDT 325 mg Given 06/11/2025 11:22 AM EDT 325 mg gabapentin (NEURONTIN) capsule 300 mg 300 mg, oral, Daily, First dose on Wed06/11/25 at 0915, Look-alike/sound-alike medication - verify indication for use. Given 06/13/2025 9:50 AM EDT 300 mg Given 06/12/2025 9:19 AM EDT 300 mg Given 06/11/2025 11:22 AM EDT 300 mg gabapentin (NEURONTIN) capsule 600 mg 600 mg, oral, Nightly, First dose on Wed06/11/25 at 2200, Look-alike/sound-alike medication - verify indication for use. Given 06/12/2025 9:00 PM EDT 600 mg Given 06/11/2025 9:56 PM EDT 600 mg glucagon HCL injection 1 mg 1 mg, intramuscular, As needed, low blood sugar, blood glucose less than 70 mg/dL and unconscious or NPO without IV access., Starting on Wed06/11/25 at 0430, Scheduling/ADT, If conscious and not NPO, immediately follow with meal tray or high protein (7Grams) snack if tray not available. If NPO, initiate IV 5% Dextrose/Water at 100 mL/hr and contact prescriber for additional orders. If blood glucose is not greater than 70 mg/dL after initial treatment, repeat treatment. heparin (porcine) injection 5,000 Units 5,000 Units, subcutaneous, Every 8 hours scheduled, First dose on Wed06/11/25 at 0600, Scheduling/ADT, Notify prescriber if INR greater than 1.9, hemoglobin less than 10 mg/dL, aPTT greater than 40 seconds, and/or platelet count less than 100,000/mm Look-alike/sound-alike medication - verify indication for use. Observe for bleeding. Given 06/13/2025 5:10 AM EDT 5,000 Units Abdominal Tissue Given 06/12/2025 9:02 PM EDT 5,000 Units A bdominal Tissue Given 06/12/2025 3:06 PM EDT 5,000 Units A bdominal Tissue insulin lispro (HumaLOG) injection 2-10 Units 2-10 Units, subcutaneous, 3 times daily with meals, First dose on Wed06/11/25 at 0800, Scheduling/ADT, Daytime hyperglycemia dosing. For blood glucose 151-200 mg/dL, give 2 units. For blood glucose 201-250 mg/dL, give 4 units. For blood glucose 251-300 mg/dL, give 6 units. For blood glucose 301-350 mg/dL, give 8 units. For blood glucose 351-400 mg/dL, give 10 units. Give even if NPO or meals skipped. Do NOT give more often then every 4 hours when NPO. Notify prescriber if blood glucose greater than 400 mg/dL. Look-alike/sound-alike medication - verify indication for use. Prime with 2 units of insulin prior to administration. Prandial/supplemental Insulin. Pre-filled pens stable 28 days at room temperature. Insulin lispro should be administered within 15 minutes before or immediately after a meal. Given 06/13/2025 11:05 AM EDT 8 Units Left Arm Given 06/13/2025 9:51 AM EDT 2 Units Le ft Arm Given 06/12/2025 5:17 PM EDT 4 Units Ab dominal Tissue insulin lispro (HumaLOG) injection 2-8 Units 2-8 Units, subcutaneous, Nightly, First dose on Wed06/11/25 at 2200, Scheduling/ADT, Bedtime hyperglycemia dosing. For blood glucose 201-250 mg/dL, give 2 units. For blood glucose 251-300 mg/dL, give 4 units. For blood glucose 301-350 mg/dL, give 6 units. For blood glucose 351-400 mg/dL, give 8 units. Give even if NPO or meals skipped. Do NOT give more often then every 4 hours when NPO. Notify prescriber if blood glucose greater than 400 mg/dL. Look-alike/sound-alike medication - verify indication for use. Prime with 2 units of insulin prior to administration. Prandial/supplemental Insulin. Pre-filled pens stable 28 days at room temperature. Insulin lispro should be administered within 15 minutes before or immediately after a meal. Given 06/12/2025 9:09 PM EDT 2 Units Right Arm magnesium sulfate IVPB 2000 mg/50 mL in iso-osmotic water (40 mg/mL premix) 2,000 mg, intravenous, at 25 mL/hr, Administer over 120 Minutes, As needed, Magnesium level 1.7 to 1.9 mg/dL, or Ionized Magnesium level 0.45 to 0.5 mmol/L., Starting on Wed06/11/25 at 0430, Scheduling/ADT, Recheck magnesium level 4 hours after infusion complete. With each magnesium result continue the replacement orders as needed. magnesium sulfate IVPB 4000 mg/100 mL in iso-osmotic water (40 mg/mL premix) 4,000 mg, intravenous, at 25 mL/hr, Administer over 240 Minutes, As needed, Magnesium level 1.6 mg/dL or less, or Ionized Magnesium level 0.44 mmol/L or less, Starting on Wed06/11/25 at 0430, Scheduling/ADT, Recheck magnesium level 4 hours after infusion complete. With each magnesium result continue the replacement orders as needed. New Bag 06/11/2025 5:06 AM EDT 4,000 mg 25 mL/hr mirtazapine (REMERON) tablet 7.5 mg 7.5 mg, oral, Nightly, First dose on Wed06/11/25 at 2200 Given 06/12/2025 9:00 PM EDT 7.5 mg Given 06/11/2025 9:56 PM EDT 7.5 mg morphine 4 mg/mL injection - Pyxis Override Pull Starting on Wed06/11/25 at 0136, For 1 dose, Naomy Hua: cabinet override Look-alike/sound-alike medication - verify indication for use. Given 06/11/2025 1:44 AM EDT 4 mg ondansetron (PF) (ZOFRAN) injection 4 mg 4 mg, intravenous, Every 6 hours PRN, nausea, vomiting, Starting on Wed06/11/25 at 0430, Scheduling/ADT, Intravenous administration preferred to be given over 2-5 minutes. potassium chloride (K-TAB,KLOR-CON) CR tablet 30-50 mEq 30-50 mEq, oral, As needed, Potassium Supplementation, Starting on Wed06/11/25 at 0430, Scheduling/ADT, Progress to oral potassium replacement when patient tolerating oral intake. If dose administered, recheck potassium level 4 hours after last dose. For potassium level 3.4 to 3.8 mmol/L and GFR 30 mL/min or greater=30 mEq. For potassium level 3.1 to 3.3 mmol/L and GFR 30 mL/min or greater=40 mEq. For potassium level 3 mmol/L or less and GFR 30 mL/min or greater=50 mEq. Do not crush or chew. potassium chloride (KAYCIEL) 20 mEq/15 mL solution 30-50 mEq 30-50 mEq, oral, As needed, Potassium Supplementation, Starting on Wed06/11/25 at 0430, Scheduling/ADT, Progress to oral potassium replacement when patient tolerating oral intake. If dose administered, recheck potassium level 4 hours after last dose. For potassium level 3.4 to 3.8 mmol/L and GFR 30 mL/min or greater=30 mEq. For potassium level 3.1 to 3.3 mmol/L and GFR 30 mL/min or greater=40 mEq. For potassium level 3 mmol/L or less and GFR 30 mL/min or greater=50 mEq. Must dilute before use - Mix in 3-8 ounces of water or juice before administration When administering in feeding tube, flush before and after per policy and monitor potassium levels potassium chloride IVPB 10 mEq/100 mL in water (0.1 mEq/mL premix) 10 mEq, intravenous, at 100 mL/hr, Administer over 60 Minutes, As needed, POTASSIUM REPLACEMENT, Starting on Wed06/11/25 at 0430, Scheduling/ADT, IV if unable to use oral/enteral with the current dosing strategies Potassium level 3 mmol/L or less administer Potassium Chloride 50 mEq Potassium level 3.1 to 3.3 mmol/L administer Potassium Chloride 40 mEq Potassium level 3.4 to 3.8 mmol/L administer Potassium Chloride 30 mEq Use central line when applicable. Recheck potassium level 1 hour after total IVPB infusion complete, With each potassium result continue the replacement orders as needed VESICANT (YELLOW) Infuse each 10 mEq over a minimum of 1 hour. sennosides-docusate sodium (SENOKOT-S) 8.6-50 mg 1 tablet 1 tablet, oral, Every 12 hours PRN, constipation, Starting on Wed06/11/25 at 0430, Scheduling/ADT sertraline (ZOLOFT) tablet 100 mg 100 mg, oral, Daily, First dose on Wed06/11/25 at 0915, Look-alike/sound-alike medication - verify indication for use. Given 06/13/2025 9:50 AM EDT 100 mg Given 06/12/2025 9:19 AM EDT 100 mg Given 06/11/2025 11:22 AM EDT 100 mg sodium chloride 0.9 % flush 3 mL 3 mL, intravenous, As needed, line care, before and after each intermittent use, Starting on Wed06/11/25 at 0039 sodium chloride 0.9 % flush bag 25 mL, intravenous, at 100 mL/hr, Administer over 15 Minutes, As needed, line care, line care after IVPB administration, Starting on Wed06/11/25 at 0430, Scheduling/ADT sodium chloride 0.9 % infusion 20 mL/hr, intravenous, Continuous PRN, to maintain patency of lines, Starting on Wed06/11/25 at 0430, Scheduling/ADT sodium chloride 0.9 % infusion 75 mL/hr, intravenous, Continuous, Starting on Wed06/11/25 at 0500, For 1 day Rate/Dose Verify 06/11/2025 11:25 AM EDT 75 mL/hr Restarted 06/11/2025 11:21 AM EDT 75 mL/hr New Bag 06/11/2025 5:05 AM EDT 75 mL/hr 75 mL/hr sodium chloride 0.9 % infusion 75 mL/hr, intravenous, Continuous, Starting on Wed06/12/25 at 0530, For 1 day New Bag 06/12/2025 8:01 AM EDT 75 mL/hr 75 mL/hr Restarted 06/12/2025 5:30 AM EDT 75 mL/hr 75 mL/hr traZODone (DESYREL) tablet 100 mg 100 mg, oral, Nightly, First dose on Wed06/11/25 at 2200, Look-alike/sound-alike medication - verify indication for use. Given 06/12/2025 9:00 PM EDT 100 mg Given 06/11/2025 9:56 PM EDT 100 mg documented in this encounter Active and Recently Administered Medications Times are shown in EDT. Scheduled Medication Order 06/11/2025 06/12/2025 06/13/2025 cefTRIAXone (ROCEPHIN) IVPB 1000 mg/50 mL in iso-osmotic dextrose (20 mg/mL premix) (COMPLETED) 1,000 mg, intravenous, at 100 mL/hr, Administer over 30 Minutes, Once, On Wed06/11/25 at 0040, For 1 dose, Look-alike/sound-alike medication - verify indication for use. Do not co-administer with calcium-containing solutions such as Lactated Ringers., Indication: UTI 0216 (New Bag - Provider: Naomy Hua RN)0243 (Stop Bag - Provider: Naomy Hua RN) cefTRIAXone (ROCEPHIN) IVPB 2000 mg/50 mL in iso-osmotic dextrose (40 mg/mL premix) (CANCELED) 2,000 mg, intravenous, at 100 mL/hr, Administer over 30 Minutes, Every 24 hours, First dose on Wed06/12/25 at 0200, Scheduling/ADT, Look-alike/sound-alike medication - verify indication for use. Do not co-administer with calcium-containing solutions such as Lactated Ringers., Indication: UTI 0151 (New Bag - Provider: Kenzie Belle RN)0221 (Stop Bag - Provider: Kenzie Belle RN) CEPHalexin (KEFLEX) capsule 500 mg 500 mg, oral, 2 times daily, First dose on Wed06/12/25 at 2100, Look-alike/sound-alike medication - verify indication for use., Indication: UTI 2100 (Given - Provider: Kenzie Belle RN) 0950 (Given - Provider: Ileana Venegas, GABBY) cyanocobalamin tablet 1,000 mcg 1,000 mcg, oral, Daily, First dose on Wed06/11/25 at 0915 1122 (Given - Provider: Hedy Rachel RN) 0919 (Given - Provider: Hedy Rachel RN) 0950 (Given - Provider: Ileana Venegas, GABBY) ferrous sulfate tablet 325 mg 325 mg, oral, Daily with breakfast, First dose on Wed06/11/25 at 0915, Give ferrous sulfate 2 hours before or 4 hours after antacids. 1122 (Given - Provider: Hedy Rachel RN) 0919 (Given - Provider: Hedy Rachel RN) 0950 (Given - Provider: Ileana Venegas, GABBY) gabapentin (NEURONTIN) capsule 300 mg 300 mg, oral, Daily, First dose on Wed06/11/25 at 0915, Look-alike/sound-alike medication - verify indication for use. 1122 (Given - Provider: Hedy Rachel RN) 0919 (Given - Provider: Hedy Rachel RN) 0950 (Given - Provider: Ileana Venegas RN) gabapentin (NEURONTIN) capsule 600 mg 600 mg, oral, Nightly, First dose on Wed06/11/25 at 2200, Look-alike/sound-alike medication - verify indication for use. 2156 (Given - Provider: Kenzie Belle RN) 2100 (Given - Provider: Kenzie Belle RN) heparin (porcine) injection 5,000 Units 5,000 Units, subcutaneous, Every 8 hours scheduled, First dose on Wed06/11/25 at 0600, Scheduling/ADT, Notify prescriber if INR greater than 1.9, hemoglobin less than 10 mg/dL, aPTT greater than 40 seconds, and/or platelet count less than 100,000/mm Look-alike/sound-alike medication - verify indication for use. Observe for bleeding. 0507 (Given - Provider: Kristy Zuleta RN)1454 (Given - Provider: Hedy Rachel RN)2158 (Given - Provider: Kenzie Belle RN) 0522 (Given - Provider: Kenzie Belle RN)1506 (Given - Provider: Hedy Rachel RN)2102 (Given - Provider: Kenzie Belle RN) 0510 (Given - Provider: Kenzie Belle RN)1400 (Due) insulin lispro (HumaLOG) injection 2-10 Units 2-10 Units, subcutaneous, 3 times daily with meals, First dose on Wed06/11/25 at 0800, Scheduling/ADT, Daytime hyperglycemia dosing. For blood glucose 151-200 mg/dL, give 2 units. For blood glucose 201-250 mg/dL, give 4 units. For blood glucose 251-300 mg/dL, give 6 units. For blood glucose 301-350 mg/dL, give 8 units. For blood glucose 351-400 mg/dL, give 10 units. Give even if NPO or meals skipped. Do NOT give more often then every 4 hours when NPO. Notify prescriber if blood glucose greater than 400 mg/dL. Look-alike/sound-alike medication - verify indication for use. Prime with 2 units of insulin prior to administration. Prandial/supplemental Insulin. Pre-filled pens stable 28 days at room temperature. Insulin lispro should be administered within 15 minutes before or immediately after a meal. 0800 (Given - Provider: Hedy Rachel RN - Comment: [phone] (Given - Provider: Hedy Rachel RN)1826 (Given - Provider: Hedy Racehl RN) 0802 (Given - Provider: Hedy Rachel RN - Comment: [phone] (Given - Provider: Hedy Rachel RN)[phone] (Given - Provider: Hedy Rachel RN) 0951 (Given - Provider: Ileana Venegas, RN)1105 (Given - Provider: Ileana Venegas, RN) insulin lispro (HumaLOG) injection 2-8 Units 2-8 Units, subcutaneous, Nightly, First dose on Wed06/11/25 at 2200, Scheduling/ADT, Bedtime hyperglycemia dosing. For blood glucose 201-250 mg/dL, give 2 units. For blood glucose 251-300 mg/dL, give 4 units. For blood glucose 301-350 mg/dL, give 6 units. For blood glucose 351-400 mg/dL, give 8 units. Give even if NPO or meals skipped. Do NOT give more often then every 4 hours when NPO. Notify prescriber if blood glucose greater than 400 mg/dL. Look-alike/sound-alike medication - verify indication for use. Prime with 2 units of insulin prior to administration. Prandial/supplemental Insulin. Pre-filled pens stable 28 days at room temperature. Insulin lispro should be administered within 15 minutes before or immediately after a meal. 2200 (Not Given - Provider: Kenzie Belle RN - Reason: Order parameters not met) 2109 (Given - Provider: Kenzie Belle RN - Comment: [phone]) letrozole (FEMARA) chemo tablet 2.5 mg 2.5 mg, oral, Daily, First dose on Wed06/11/25 at 0915, HAZARDOUS - Handle with care. Do not crush or split tablet. Look-alike/sound-alike medication - verify indication for use. 0915 (Not Given - Provider: Hedy Rachel RN - Reason: Medication not available) 0900 (Not Given - Provider: Hedy Rachel RN - Reason: Medication not available) 0900 (Not Given - Provider: Ileana Venegas, GABBY - Reason: Medication not available) mirtazapine (REMERON) tablet 7.5 mg 7.5 mg, oral, Nightly, First dose on Wed06/11/25 at 2200 2156 (Given - Provider: Kenzie Belle RN) 2100 (Given - Provider: Kenzie Belle RN) sertraline (ZOLOFT) tablet 100 mg 100 mg, oral, Daily, First dose on Wed06/11/25 at 0915, Look-alike/sound-alike medication - verify indication for use. 1122 (Given - Provider: Hedy Rachel RN) 0919 (Given - Provider: Hedy Rachel RN) 0950 (Given - Provider: Ileana Venegas, GABBY) traZODone (DESYREL) tablet 100 mg 100 mg, oral, Nightly, First dose on Wed06/11/25 at 2200, Look-alike/sound-alike medication - verify indication for use. 2156 (Given - Provider: Kenzie Belle RN) 2100 (Given - Provider: Kenzie Belle RN) Continuous Medication Order 06/11/2025 06/12/2025 06/13/2025 sodium chloride 0.9 % infusion () 75 mL/hr, intravenous, Continuous, Starting on Wed06/11/25 at 0500, For 1 day 0505 (New Bag - Provider: Kristy Zuleta RN)0842 (Paused - Provider: Hedy Rachel RN)0844 (Paused - Provider: Hedy Rachel RN)1121 (Restarted - Provider: Hedy Rachel RN)1125 (Rate/Dose Verify - Provider: Hedy Rachel RN) 0504 (Stop Bag - Provider: Kenzie Belle RN - Comment: [Order ends at this time. Document the following action when infusion is complete: Stop Bag]) sodium chloride 0.9 % infusion (CANCELED) 75 mL/hr, intravenous, Continuous, Starting on Wed06/12/25 at 0530, For 1 day 0530 (Restarted - Provider: Kenzie Belle RN)0801 (New Bag - Provider: Hedy Rachel, RN)1629 (Stop Bag - Provider: Hedy Rachel RN) PRN Medication Order 06/11/2025 06/12/2025 06/13/2025 acetaminophen (TYLENOL) tablet 650 mg 650 mg, oral, Every 4 hours PRN, mild pain - pain scale 1-3, temperature greater than 38 C, headaches, Temperature greater than 38.3 C, Starting on Wed06/11/25 at 0430, Scheduling/ADT, [Warning: Total Acetaminophen not to exceed more than 4 grams (4000 mg) in 24 hours] 0844 (Given - Provider: Hedy Rachel RN)1950 (Given - Provider: Kenzie Belle RN) 1208 (Given - Provider: Hedy Rachel RN)2255 (Given - Provider: Kenzie Belle RN) 1105 (Given - Provider: Ileana Venegas RN) alum-mag hydroxide-simeth (MAALOX) 200-200-20 mg/5 mL suspension 30 mL 30 mL, oral, 4 times daily after meals and at bedtime as needed, dyspepsia, Starting on Wed06/11/25 at 0430, Scheduling/ADT, Look-alike/sound-alike medication - verify indication for use. Shake well., Indications: dyspepsia dextrose (GLUTOSE) 40 % gel 15 g 15 g, oral, As needed, low blood sugar, blood glucose less than 70 mg/dL, Starting on Wed06/11/25 at 0430, Scheduling/ADT, If patient conscious and taking PO. If blood glucose is not greater than 70 mg/dL after initial treatment, repeat treatment. dextrose 5 % (D5W) infusion 100 mL/hr, intravenous, Continuous PRN, blood glucose less than 70 mg/dL, Starting on Wed06/11/25 at 0430, Scheduling/ADT, Use immediately following dextrose 50% or glucagon treatment for patients who are unconscious or NPO. Contact prescriber for additional orders. If blood glucose is not greater than 70 mg/dL after initial treatment, repeat treatment. dextrose 50 % in water (D50W) 50% solution 25 mL 25 mL, intravenous, As needed, low blood sugar, blood glucose less than 70 mg/dL and unconscious or NPO with IV access, Starting on Wed06/11/25 at 0430, Scheduling/ADT, Push over 1-3 minutes STAT. If conscious and not NPO, immediately follow with meal tray or high protein (7 grams) snack if tray not available. If NPO, initiate 5% dextrose in water at 100 mL/hr and contact prescriber for additional orders. If blood glucose is not greater than 70 mg/dL after initial treatment, repeat treatment. VESICANT (RED) Warning: HYPERTONIC solution. glucagon HCL injection 1 mg 1 mg, intramuscular, As needed, low blood sugar, blood glucose less than 70 mg/dL and unconscious or NPO without IV access., Starting on Wed06/11/25 at 0430, Scheduling/ADT, If conscious and not NPO, immediately follow with meal tray or high protein (7Grams) snack if tray not available. If NPO, initiate IV 5% Dextrose/Water at 100 mL/hr and contact prescriber for additional orders. If blood glucose is not greater than 70 mg/dL after initial treatment, repeat treatment. magnesium sulfate IVPB 2000 mg/50 mL in iso-osmotic water (40 mg/mL premix) 2,000 mg, intravenous, at 25 mL/hr, Administer over 120 Minutes, As needed, Magnesium level 1.7 to 1.9 mg/dL, or Ionized Magnesium level 0.45 to 0.5 mmol/L., Starting on Wed06/11/25 at 0430, Scheduling/ADT, Recheck magnesium level 4 hours after infusion complete. With each magnesium result continue the replacement orders as needed. magnesium sulfate IVPB 4000 mg/100 mL in iso-osmotic water (40 mg/mL premix) 4,000 mg, intravenous, at 25 mL/hr, Administer over 240 Minutes, As needed, Magnesium level 1.6 mg/dL or less, or Ionized Magnesium level 0.44 mmol/L or less, Starting on Wed06/11/25 at 0430, Scheduling/ADT, Recheck magnesium level 4 hours after infusion complete. With each magnesium result continue the replacement orders as needed. 0506 (New Bag - Provider: Kristy Zuleta RN)0842 (Stop Bag - Provider: Hedy Rachel RN) ondansetron (PF) (ZOFRAN) injection 4 mg 4 mg, intravenous, Every 6 hours PRN, nausea, vomiting, Starting on Wed06/11/25 at 0430, Scheduling/ADT, Intravenous administration preferred to be given over 2-5 minutes. potassium chloride (K-TAB,KLOR-CON) CR tablet 30-50 mEq(Linked Group 1) 30-50 mEq, oral, As needed, Potassium Supplementation, Starting on Wed06/11/25 at 0430, Scheduling/ADT, Progress to oral potassium replacement when patient tolerating oral intake. If dose administered, recheck potassium level 4 hours after last dose. For potassium level 3.4 to 3.8 mmol/L and GFR 30 mL/min or greater=30 mEq. For potassium level 3.1 to 3.3 mmol/L and GFR 30 mL/min or greater=40 mEq. For potassium level 3 mmol/L or less and GFR 30 mL/min or greater=50 mEq. Do not crush or chew. potassium chloride (KAYCIEL) 20 mEq/15 mL solution 30-50 mEq(Linked Group 1) 30-50 mEq, oral, As needed, Potassium Supplementation, Starting on Wed06/11/25 at 0430, Scheduling/ADT, Progress to oral potassium replacement when patient tolerating oral intake. If dose administered, recheck potassium level 4 hours after last dose. For potassium level 3.4 to 3.8 mmol/L and GFR 30 mL/min or greater=30 mEq. For potassium level 3.1 to 3.3 mmol/L and GFR 30 mL/min or greater=40 mEq. For potassium level 3 mmol/L or less and GFR 30 mL/min or greater=50 mEq. Must dilute before use - Mix in 3-8 ounces of water or juice before administration When administering in feeding tube, flush before and after per policy and monitor potassium levels potassium chloride IVPB 10 mEq/100 mL in water (0.1 mEq/mL premix)(Linked Group 1) 10 mEq, intravenous, at 100 mL/hr, Administer over 60 Minutes, As needed, POTASSIUM REPLACEMENT, Starting on Wed06/11/25 at 0430, Scheduling/ADT, IV if unable to use oral/enteral with the current dosing strategies Potassium level 3 mmol/L or less administer Potassium Chloride 50 mEq Potassium level 3.1 to 3.3 mmol/L administer Potassium Chloride 40 mEq Potassium level 3.4 to 3.8 mmol/L administer Potassium Chloride 30 mEq Use central line when applicable. Recheck potassium level 1 hour after total IVPB infusion complete, With each potassium result continue the replacement orders as needed VESICANT (YELLOW) Infuse each 10 mEq over a minimum of 1 hour. sennosides-docusate sodium (SENOKOT-S) 8.6-50 mg 1 tablet 1 tablet, oral, Every 12 hours PRN, constipation, Starting on Wed06/11/25 at 0430, Scheduling/ADT sodium chloride 0.9 % flush 3 mL 3 mL, intravenous, As needed, line care, before and after each intermittent use, Starting on Wed06/11/25 at 0039 sodium chloride 0.9 % flush bag 25 mL, intravenous, at 100 mL/hr, Administer over 15 Minutes, As needed, line care, line care after IVPB administration, Starting on Wed06/11/25 at 0430, Scheduling/ADT sodium chloride 0.9 % infusion 20 mL/hr, intravenous, Continuous PRN, to maintain patency of lines, Starting on Wed06/11/25 at 0430, Scheduling/ADT No Frequency Medication Order 06/11/2025 06/12/2025 06/13/2025 morphine 4 mg/mL injection - Pyxis Override Pull (COMPLETED) Starting on Wed06/11/25 at 0136, For 1 dose, Naomy Hua: cabinet override Look-alike/sound-alike medication - verify indication for use. 0144 (Given - Provider: Naomy Hua RN - Comment: Pyxis override pull. Order not populating in pyxis. Order confirmed w/ override pull 4mg/1ml dose. Verified w/ Analilia RN) Linked Groups Order Group 1: potassium chloride (K-TAB,KLOR-CON) CR tablet 30-50 mEqJump to med 30-50 mEq, oral, As needed, Potassium Supplementation, Starting on Wed06/11/25 at 0430, Scheduling/ADT, Progress to oral potassium replacement when patient tolerating oral intake. If dose administered, recheck potassium level 4 hours after last dose. For potassium level 3.4 to 3.8 mmol/L and GFR 30 mL/min or greater=30 mEq. For potassium level 3.1 to 3.3 mmol/L and GFR 30 mL/min or greater=40 mEq. For potassium level 3 mmol/L or less and GFR 30 mL/min or greater=50 mEq. Do not crush or chew. Or potassium chloride (KAYCIEL) 20 mEq/15 mL solution 30-50 mEqJump to med 30-50 mEq, oral, As needed, Potassium Supplementation, Starting on Wed06/11/25 at 0430, Scheduling/ADT, Progress to oral potassium replacement when patient tolerating oral intake. If dose administered, recheck potassium level 4 hours after last dose. For potassium level 3.4 to 3.8 mmol/L and GFR 30 mL/min or greater=30 mEq. For potassium level 3.1 to 3.3 mmol/L and GFR 30 mL/min or greater=40 mEq. For potassium level 3 mmol/L or less and GFR 30 mL/min or greater=50 mEq. Must dilute before use - Mix in 3-8 ounces of water or juice before administration When administering in feeding tube, flush before and after per policy and monitor potassium levels Or potassium chloride IVPB 10 mEq/100 mL in water (0.1 mEq/mL premix)Jump to med 10 mEq, intravenous, at 100 mL/hr, Administer over 60 Minutes, As needed, POTASSIUM REPLACEMENT, Starting on Wed06/11/25 at 0430, Scheduling/ADT, IV if unable to use oral/enteral with the current dosing strategies Potassium level 3 mmol/L or less administer Potassium Chloride 50 mEq Potassium level 3.1 to 3.3 mmol/L administer Potassium Chloride 40 mEq Potassium level 3.4 to 3.8 mmol/L administer Potassium Chloride 30 mEq Use central line when applicable. Recheck potassium level 1 hour after total IVPB infusion complete, With each potassium result continue the replacement orders as needed VESICANT (YELLOW) Infuse each 10 mEq over a minimum of 1 hour. documented in this encounter Additional Health Concerns Assessment Noted Time PHQ-9 Depression Total Score: 0 06/05/20 1:02 PM EDT A Body Mass Index follow-up plan has been documented for the patient 04/04/2025 3:37 PM EDT documented as of this encounter Care Teams Practical Nurse Clinical Coordinator Relationship Specialty Start Date End Date Jaylan Gray, PANTS PRESSER [employer] INST[employer] [address] [place] [address] PCP - General Nurse Practitioner 05/30/25 documented as of this encounter
--- OUTSIDE RECORDS SUMMARY | 2025-06-13 07:11 | XMS_ITS ---
Author Organization The [facility] in [place] Address [address] [place] [address] Care Team Providers Care Mushroom Cultivator Name Role Phone Stephanie Ley Primary Care Provider Pascale BarrosidRaul [phone] REASON FOR VISIT Appt- FYI Encounters Encounter Location Date Provider Diagnosis [facility] [place] [address] [address] 06/13/2025 Raul Arellano Plan Of Treatment Next Appt Details Provider Name:Raul Arellano, 06/27/2025 12:40:00 PM, [address] [place], [address], Progress Notes * Cuca GOODWINDOB:[birth year] (80 yo F)Acc No.[id number]:06/13/2025 Patient: Cuca WARNER :1945 A ge:79 Y S ex:Female Address:[address] [place] [address], [id number] * true * Date: Generated for Printi ng/Faxing/eTransmitting on: 0 06/25/2025 01:03 PM EDT
[2025-06-25] VITALS (30 sets, daily range): BP systolic 110–132; BP diastolic 62–94; PULSE 74–94; TEMP 36.8–37.2; O2SAT 90–100; BMI 31.5; BMI 29.1
--- NOTE | 2025-06-25 13:00 | ECG_ITS ---
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 Measurements Intervals [place] Rate: 89 P: 35 [place]: 134 QRS: -9 QRSD: 128 T: 118 QT: 374 QTc: 421 Interpretive Statements 1100 Sinus rhythm 2550 Left bundle branch block 9150 abnormal ECG Compared to ECG 10/11/2024 15:28:08 No significant changes Electronically Signed On 06-26-2025 13:54:12 EDT by HANNAH CHEN M.D.
--- NOTE | 2025-06-25 13:01 | ED.GENADUL1 ---
HPI HPI - General Adult General Chief complaint: Altered Mental Status Stated complaint: CONFUSION Time Seen by Provider: 06/25/25 12:58 Source: patient and family Mode of arrival: ambulance Limitations: altered mental status History of Present Illness HPI narrative: 80-year-old female presents for confusion. She comes in by squad from home. The paramedics report stated that she has had a UTI for a month and has been refusing her antibiotics and all of her medications. She has not been eating or drinking well. She was initially unaccompanied. She does not seem to have any physical complaints, does not have any pain. Related Data Home Medications ?Medication ?Instructions ?Recorded ?Confirmed clopidogrel 75 mg tablet 75 mg PO QDAY 09/30/23 06/25/25 gabapentin 300 mg capsule 300 mg PO Q12H 09/30/23 06/25/25 Held on 06/25/25. Instructions: Doctor's Order letrozole 2.5 mg tablet 2.5 mg PO Q24H 09/30/23 06/25/25 pantoprazole 40 mg tablet,delayed 40 mg PO QDAY 09/30/23 06/25/25 release sertraline 100 mg tablet 100 mg PO QAM 09/30/23 06/25/25 metoprolol succinate 25 mg 25 mg PO DAILY 02/27/24 06/25/25 tablet,extended release 24 hr insulin lispro 100 unit/mL 12 unit subcut TIDWM 04/06/24 06/25/25 subcutaneous pen blood-glucose sensor (Dexcom G7 06/25/25 06/25/25 Sensor device) furosemide 20 mg tablet 20 mg PO .QD 06/25/25 06/25/25 gabapentin 600 mg tablet 600 mg PO Q12H 06/25/25 06/25/25 Held on 06/25/25. Instructions: HOLD FOR NOW mirtazapine 7.5 mg tablet 7.5 mg PO DAILY 06/25/25 06/25/25 trazodone 100 mg tablet 100 mg PO .QHS 06/25/25 06/25/25 Previous Rx's ?Medication ?Instructions ?Recorded aspirin 81 mg capsule 81 mg PO DAILY #30 caps 02/28/24 atorvastatin 20 mg tablet 20 mg PO QPM #30 tabs 02/28/24 insulin detemir U-100 100 unit/mL 20 unit (0.2 mL) subcut QPM #15 mL 04/11/24 (3 mL) subcutaneous pen (Levemir FlexPen) Allergies Allergy/AdvReac Type Severity Reaction Status Date / Time No Known Drug Allergies Allergy Verified 06/25/25 12:51 Opioid HPI Opioid Management Most Recent Opioid Data: Last Pain Scale 0 04/11/24, 12:19 Last Pain Intensity 2 04/07/24, 10:58 Last ORT Total Score 0 10/11/24, 20:21 Last ORT Risk Category Low Risk 10/11/24, 20:21 Review of Systems ROS Narrative A ten point review of systems is negative except as noted above. [facility] Medical History (Updated 06/25/25 @ 15:18 by Israel Maravilla MD) Stage 4 chronic kidney disease ?N18.4 - Chronic kidney disease, stage 4 (severe) (ICD-10) UTI (urinary tract infection) ?N39.0 - Urinary tract infection, site not specified (ICD-10) Acute UTI ?N39.0 - Urinary tract infection, site not specified (ICD-10) H/O malignant neoplasm of female breast ?Z85.3 - Personal history of malignant neoplasm of breast (ICD-10) Aortic stenosis ?I35.0 - Nonrheumatic aortic (valve) stenosis (ICD-10) Arthritis ?M19.90 - Unspecified osteoarthritis, unspecified site (ICD-10) Anemia ?D64.9 - Anemia, unspecified (ICD-10) Asthma ?J45.909 - Unspecified asthma, uncomplicated (ICD-10) Encephalitis ?G04.90 - Encephalitis and encephalomyelitis, unspecified (ICD-10) Metastasis to bone ?C79.51 - Secondary malignant neoplasm of bone (ICD-10) Peptic ulcer disease ?K27.9 - Peptic ulcer, site unspecified, unspecified as acute or chronic, without hemorrhage or perforation (ICD-10) TIA (transient ischemic attack) ?G45.9 - Transient cerebral ischemic attack, unspecified (ICD-10) CHELSEA (obstructive sleep apnea) ?G47.33 - Obstructive sleep apnea (adult) (pediatric) (ICD-10) PVD (peripheral vascular disease) ?I73.9 - Peripheral vascular disease, unspecified (ICD-10) Lumbar spondylosis ?M47.816 - Spondylosis without myelopathy or radiculopathy, lumbar region (ICD-10) Incontinence ?R32 - Unspecified urinary incontinence (ICD-10) CKD (chronic kidney disease) stage 3, GFR 30-59 ml/min ?N18.30 - Chronic kidney disease, stage 3 unspecified (ICD-10) Breast CA ?C50.919 - Malignant neoplasm of unspecified site of unspecified female breast (ICD-10) CAD (coronary artery disease) ?I25.10 - Atherosclerotic heart disease of [place] coronary artery without angina pectoris (ICD-10) Depression ?F32.A - Depression, unspecified (ICD-10) GERD (gastroesophageal reflux disease) ?K21.9 - Gastro-esophageal reflux disease without esophagitis (ICD-10) Hypertension ?I10 - Essential (primary) hypertension (ICD-10) Diabetes ?E11.9 - Type 2 diabetes mellitus without complications (ICD-10) Surgical History S/P DOBIE WORKER shunt ?Z98.2 - Presence of cerebrospinal fluid drainage device (ICD-10) H/O heart artery stent ?Z95.5 - Presence of coronary angioplasty implant and graft (ICD-10) History of ventriculoperitoneal shunting ?Z92.89 - Personal history of other medical treatment (ICD-10) History of mastectomy ?Z90.10 - Acquired absence of unspecified breast and nipple (ICD-10) H/O lumpectomy ?Z98.890 - Other specified postprocedural states (ICD-10) S/P balloon mitral valvuloplasty ?Z98.890 - Other specified postprocedural states (ICD-10) S/P mitral valve replacement with bioprosthetic valve ?Z95.3 - Presence of xenogenic heart valve (ICD-10) Family History Other Family history of CHF (congestive heart failure) Family history of diabetes mellitus Family history of myocardial infarction Social History Within the past year, how often did you have a drink containing alcohol: never Score interpretation: A score less than 3 is consistent with normal alcohol consumption. 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 Known occupational exposures/hazards: No Highest level of school completed/degree received: high school graduate Do you want help with school or training: No Are you now , , , , never or living with a partner: never In a typical week, how many times do you talk on the telephone with family, friends, or neighbors: 3 or more times per week How often do you get together with friends or relatives: never How often do you attend christianity or methodist services: 4 or more times per year Do you belong to any clubs or organizations such as christianity groups unions, [employer] or athletic groups, or school groups: no Total score: 2 Score interpretation: A score of greater than or equal to 2 indicates the lowest level of social isolation. Little interest or pleasure in doing things: not at all Feeling down, depressed, or hopeless: not at all Feel stressed/tense/nervous/anxious/difficulty sleeping: not at all Due to disability, difficulty making decisions: No Do you think of yourself as: straight/heterosexual Gender Identity: female Exam Narrative Exam Narrative: Nurses note and vital signs reviewed and patient is not hypoxic. General: The patient appears in no apparent distress. Skin: Warm, dry, no pallor noted. There is no rash noted. Head: Normocephalic, atraumatic Eye: Normal conjunctiva, no drainage Ears, Nose, Mouth, and Throat: oral mucosa is moist. Nares patent. Cardiovascular: Regular Rate and Rhythm Respiratory: Patient is in no distress, no accessory muscle use, lungs are clear to auscultation, no wheezing, rales or rhonchi Back: non-tender GI: Soft and nontender Musculoskeletal: The patient has no evidence of calf tenderness, no pitting edema, symmetrical pulses noted bilaterally Neurological: A&O x4, normal speech; upper and lower extremity strength intact and symmetric Psychiatric: Cooperative Constitutional Vital Signs, click to edit/add: Last Vital Signs Temp 99 F 06/25/25 12:52 Pulse 79 06/25/25 14:30 Resp 20 06/25/25 14:30 BP 117/67 06/25/25 14:30 Pulse Ox 100 06/25/25 14:30 O2 Del Method Room Air 06/25/25 12:52 O2 Flow Rate 3 06/25/25 14:00 Course Vital Signs Vital signs: Vital Signs Temperature 99 F 06/25/25 12:52 Pulse Rate 89 06/25/25 12:52 Respiratory Rate 18 06/25/25 12:52 Blood Pressure 120/78 06/25/25 12:52 Pulse Oximetry 90 L 06/25/25 12:52 Oxygen Delivery Method Room Air 06/25/25 12:52 Temperature 99 F 06/25/25 12:52 Pulse Rate 79 06/25/25 14:30 Respiratory Rate 20 06/25/25 14:30 Blood Pressure 117/67 06/25/25 14:30 Pulse Oximetry 100 06/25/25 14:30 Oxygen Delivery Method Room Air 06/25/25 12:52 Oxygen Delivery Flow Rate 3 06/25/25 14:00 Medical Decision Making MDM Narrative Medical decision making narrative: Her workup indicates urinary tract infection. WBC is 8.8 Lab Data Labs: Lab Results 06/25/25 06/25/25 06/25/25 Range/Units 13:05 13:20 13:36 WBC 8.8 (4.0-11.0) 10^3/uL RBC 4.00 L (4.20-5.40) 10^6/uL Hgb 10.8 L (12.0-16.0) g/dL Hct 33.6 L (36.0-48.0) % MCV 84.0 (81.0-99.0) fL MCH 27.0 (26.7-34.0) pg MCHC 32.1 (29.9-35.2) g/dL RDW 15.9 H (11.0-15.0) % Plt Count 412 (150-450) 10^3/uL MPV 9.9 (9.5-13.5) fL Neut % (Auto) 72.7 (43.0-75.0) % Lymph % (Auto) 17.0 L (20.5-60.0) % Crosby % (Auto) 6.9 (1.7-12.0) % Eos % (Auto) 2.3 (0.9-7.0) % Baso % (Auto) 0.5 (0.2-2.0) % Neut # (Auto) 6.4 (1.4-6.5) 10^3/uL Lymph # (Auto) 1.5 (1.2-3.8) 10^3/uL Crosby # (Auto) 0.6 (0.3-0.8) 10^3/uL Eos # (Auto) 0.2 (0.0-0.7) 10^3/uL Baso # (Auto) 0.0 (0.0-0.1) 10^3/uL Abs Immat Gran (auto) 0.05 H (0.00-0.03) 10^3/uL Imm/Tot Granulo (auto) 0.6 H (0.0-0.5) % Sodium 132 L (136-145) mmol/L Potassium 4.4 (3.5-5.1) mmol/L Chloride 96 L (98-107) mmol/L Carbon Dioxide 29.2 (21.0-32.0) mmol/L Anion Gap 11.2 BUN 21.0 H (7.0-18.0) mg/dL Creatinine 1.44 H (0.55-1.02) mg/dL Est GFR ( Amer) 43 L (>=60 mL/min/1.73m^2) Est GFR (Non-Af Amer) 35 L (>=60 mL/min/1.73m^2) BUN/Creatinine Ratio 14.6 Glucose 202 H (74-106) mg/dL Lactate 1.4 (0.4-2.0) mmol/L Calcium 10.3 H (8.5-10.1) mg/dL Urine Color Lt. yellow (YELLOW) Urine Clarity Clear (CLEAR) Urine pH 7.5 (5.0-9.0) Ur Specific [place] 1.020 (1.005-1.025) Urine Protein 100 A (NEG/TRACE) mg/dL Urine Glucose (UA) Negative (NEGATIVE) mg/dL Urine Ketones Trace A (NEGATIVE) mg/dL Urine Occult Blood Trace-l (NEGATIVE) Urine Nitrite Positive A (NEGATIVE) Urine Bilirubin Negative (NEGATIVE) Urine Urobilinogen 0.2 (0.2-1.0) EU/dL Ur Leukocyte Esterase Large A (NEGATIVE) Urine RBC 0-2 (0-2) #/HPF Urine WBC 20-50 A (NONE SEEN) #/HPF Ur Squamous Epith Cells Few A (NONE/RARE) #/LPF Urine Crystals None seen (None Seen) #/HPF Urine Bacteria Large A (NONE SEEN) #/HPF Urine Casts None seen (NONE SEEN) #/LPF Urine Mucus None seen (NONE SEEN) Ur Culture Indicated? Yes-[facility] [place] Ethanol Quant <3 mg/dL Imaging Data Chest x-ray: Radiologist's impression: ITS Impressions Head CT 06/25/25 13:57 IMPRESSION: NO ACUTE INTRACRANIAL ABNORMALITY. STABLE SHUNTED VENTRICULOMEGALY. STABLE CHRONIC SMALL VESSEL CHANGES Impression dictated by: Derek Perla M.D. 06/25/2025 2:16 PM Dictation Location: [place] [address] Electronically authenticated by: [id number] Y Date: 06/25/2025 14:16 Chest x-ray per radiology shows no acute findings ECG Data Attestation: I personally reviewed and interpreted this ECG as follows: (EKG on my interpretation shows sinus rhythm with a rate of 89 and a left bundle branch block) Discharge Plan Discharge Chief Complaint: Altered Mental Status Clinical Impression: Urinary tract infection, Altered mental status Patient Disposition: Admitted As Inpatient Time of Disposition Decision: 15:17 Condition: Fair
--- OUTSIDE RECORDS SUMMARY | 2025-06-25 13:02 | XMS_ITS | Encounter Summary ---
Author Organization [facility] tem Address [id number] [address] [place] [address] Care Team Providers Care Biologics Specialist Name Role Phone Jaylan Gray Vicki JENKINS-VALET CASHIER Primary Care Provider + Encounter Details Date Type Department Care Team (Late st Contact Info) Description 03/18/2021 [facility]phone [facility] [address] [place] [id number] Thais Pichardo MA Social History Tobacco Use Types Packs/Day Years Used Date Smoking Tobacco: Never Smokeless Tobacco: Never Alcohol Use Standard Drinks/Week Comments No 0 (1 standard drink = 0.6 oz pur e alcohol) PHQ-2 Answer Date Recorded Total Score 0 02/24/2021 Childcare Answer Date Recorded Childcare Unknown 04/14/2019 Employment Answer Date Recorded Employment Unknown 04/14/2019 Purpose - Life Answer Date Recorded Purpose and direction in life Unknown Comments No Sex and Gender Information Value Date Recorded Sex Assigned at Not on file Legal Sex Female 11:55 AM EDT Gender Identity Female 03/21/2020 8:20 PM EDT Sexual Orientation Straight 10/05/2022 8: 20 AM EST COVID-19 Exposure Response Date Recorded In the last month, have you been in contact with someone who was confirmed or suspected to have Coronavirus / COVID-19? No / Unsure 03/18/2021 7:38 PM EDT documented as of this encounter Miscellaneous Notes * Telephone Encounter - Thais Pichardo MA - 03/18/2021 4:22 PM EDT FYI, she called all upset again today;, still waiting to get colette, explained again, not that easy for DM2 to get this approved, and she has to be patient and follow rules with orders and such. She said forget it and and told her until she needs to be testing with meter as directed, she yelled whatever and hung up documented in this encounter Plan of Treatment Upcoming Encounters Date Type Department Care Team (Late st Contact Info) Description 09/05/2025 1:00 PM EDT Office Visit [facility] [address] [place] [address] Jaylan Gray, INSURANCE AGENCY OWNER-VALET CASHIER [address] [place] [address] documented as of this encounter Visit Diagnoses Not on filedocumented in this encounter Additional Health Concerns Infection Onset Date Last Indicated Resolved Time COVID-19 Rule-Out 12/19/2021 12/19/2021 12/19/2021 12:48 AM EST COVID-19 Rule-Out 05/14/2022 05/14/2022 05/14/2022 10:19 AM EDT COVID-19 Positive 05/14/2022 05/26/2022 06/16/2022 11:13 PM EDT Enteric Rule-Out 05/26/2022 05/26/2022 06/02/2022 11:13 PM EDT COVID-19 Rule-Out 10/05/2022 10/05/2022 10/05/2022 4:00 AM EST COVID-19 Rule-Out 03/29/2023 03/29/2023 03/29/2023 4:12 AM EDT COVID-19 Rule-Out 06/13/2024 06/13/2024 06/13/2024 7:31 AM EDT COVID-19 Rule-Out 08/12/2024 08/12/2024 08/12/2024 3:20 AM EDT COVID-19 Positive 08/12/2024 08/12/2024 09/02/2024 11:12 PM EDT COVID-19 Rule-Out 11/09/2024 11/09/2024 11/09/2024 7:48 AM EST Respiratory Rule-Out 02/12/2025 02/12/2025 025 1:47 PM EDT Assessment Noted Time PHQ-9 Depression Total Score: 0 02/25/20 9:41 AM EDT A Body Mass Index follow-up plan has been documented for the patient 03/03/2021 6:26 AM EDT documented as of this encounter Care Teams Biologics Specialist Relationship Specialty Start Date End Date Jaylan Gray, INSURANCE AGENCY OWNER-VALET CASHIER [address] [place] [address] PCP - General Nurse Practitioner 05/30/25 documented as of this encounter
--- OUTSIDE RECORDS SUMMARY | 2025-06-25 13:02 | XMS_ITS | Encounter Summary ---
Author Organization [facility] tem Address [id number] [address] [place] [address] Care Team Providers Care Bowling Pin Refinisher Name Role Phone Jaylan Gray WINDOWS DEPLOYMENT TECHNICIAN-PERINATAL INSTRUCTOR Primary Care Provider + Encounter Details Date Type Department Care Team (Late st Contact Info) Description 02/12/2023 Telephone [facility] [address] [place] [address] Stephanie Ley, WINDOWS DEPLOYMENT TECHNICIAN-[facility] [address] PM 05/14/25 [place] [address] Social History Tobacco Use Types Packs/Day Years Used Date Smoking Tobacco: Never Smokeless Tobacco: Never Alcohol Use Standard Drinks/Week Comments No 0 (1 standard drink = 0.6 oz pur e alcohol) Social Connection and Isolat ion Panel [NHANES] Answer Date Recorded In a typical week, how many times do you talk on the phone with family, friends, or neighbors? Never 10/05/2022 How often do you get togethe r with friends or relatives? Never 10/05/2022 How often do you attend chur ch or hinduism services? More than 4 times per year 10/05/2022 Do you belong to any clubs o r organizations such as confucianist groups, unions, fraternal or athletic groups, or school groups? Yes 10/05/2022 How often do you attend meet ings of the clubs or organizations you belong to? More than 4 times per year 10/05/2022 Are you , , di vorced, , never , or living with a partner? Never 10/05/2022 AUDIT-C Answer Date Recorded Q1: How often do you have a drink containing alcohol? Never 10/05/2022 Q2: How many drinks containi ng alcohol do you have on a typical day when you are drinking? Patient does not drink Q3: How often do you have si x or more drinks on one occasion? Never 10/05/2022 Overall Financial Resource Strain (CARDIA) Answe r Date Recorded How hard is it for you to pa y for the very basics like food, housing, medical care, and heating? Not very hard 10/05/2022 PHQ-2 Answer Date Recorded Total Score 0 02/09/2023 [facility] - Occupational Stress Questionnaire Answer Date Recorded Do you feel stress - tense, restless, nervous, or anxious, or unable to sleep at night because your mind is troubled all the time - these days? Not at all 10/05/2022 Exercise Vital Sign Answer Date Recorde d On average, how many days pe r week do you engage in moderate to strenuous exercise (like a brisk walk)? 0 days 10/05/2022 On average, how many minutes do you engage in exercise at this level? 0 min 10/05/2022 PRAPARE - Transportation Answer Date Re corded In the past 12 months, has l ack of transportation kept you from medical appointments or from getting medications? No 09/16 In the past 12 months, has l ack of transportation kept you from meetings, work, or from getting things needed for daily living? No 10/05/2022 Childcare Answer Date Recorded Do problems getting child ca re make it difficult for you to work or study? No 10/05/2022 Employment Answer Date Recorded Do you need help finding a [facility] and/or a training program? No 10/05/2022 Purpose - Life Answer Date Recorded I have a purpose and direction in my life. Agree 10/05/2022 Comments No Sex and Gender Information Value [...] have Coronavirus / COVID-19? No / Unsure 02/09/2023 2:41 PM EDT documented as of this encounter Miscellaneous Notes * Telephone Encounter - Cinda Garrison - 02/12/2023 11:13 AM EDT Soham from [facility] called and she wanted to let you know that the patients daughter called there very upset and angry and refuses to get any labs or anything done, she doesn't think the pt has gotten her mammo done either. Soham doesn't think that the pt will be back to see them. ig you have any questions soham can be reached at [phone] * Telephone Encounter - KAIDEN Werner - 02/12/2023 11:13 AM EDT Yes, I seen patient and daughter several days ago. No, Cuca has not completed her mammogram or MR mets of lumbar and thoracic. Dynamics and transportation issues to [place] as well. They made appointment with local [facility] cardiology documented in this encounter Plan of Treatment Upcoming Encounters Date Type Department Care Team (Late Contact Info) Description 09/05/2025 1:00 PM EDT Office Visit [facility] [address] [place] [address] Jaylan Gray, ALICE-PERINATAL INSTRUCTOR [address], [address] [address] documented as of this encounter Visit Diagnoses Not on filedocumented in this encounter Additional Health Concerns Infection Onset Date Last Indicated Resolved Time COVID-19 Rule-Out 03/29/2023 03/29/2023 03/29/2023 4:12 AM EDT COVID-19 Rule-Out 06/13/2024 06/13/2024 06/13/2024 7:31 AM EDT COVID-19 Rule-Out 08/12/2024 08/12/2024 08/12/2024 3:20 AM EDT COVID-19 Positive 08/12/2024 08/12/2024 09/02/2024 11:12 PM EDT COVID-19 Rule-Out 11/09/2024 11/09/2024 11/09/2024 7:48 AM EST Respiratory Rule-Out 02/12/2025 02/12/2025 025 1:47 PM EDT Assessment Noted Time PHQ-9 Depression Total Score: 0 02/10/20 2:48 PM EDT A Body Mass Index follow-up plan has been documented for the patient 02/15/2023 11:15 AM EDT documented as of this encounter Care Teams Bowling Pin Refinisher Relationship Specialty Start Date End Date Jaylan Gray, WINDOWS DEPLOYMENT TECHNICIAN-PERINATAL INSTRUCTOR [address] [place] [address] PCP - General Nurse Practitioner 05/30/25 documented as of this encounter
--- OUTSIDE RECORDS SUMMARY | 2025-06-25 13:02 | XMS_ITS | Encounter Summary ---
Author Organization [facility] tem Address [id number] [address] [place] [address] Care Team Providers Care Spa Attendant Name Role Phone Latoyainder Jaylan Cohen [facility] Primary Care Provider + Reason for Visit * Reason Comments Med Refill Encounter Details Date Type Department Care Team (Late Contact Info) Description 06/22/2019 Refill [facility] [address] [place] [address] Stephanie Ley, [facility]CHNOLOGY [facility] [address] PM 05/14/25 [place] [phone] Current moderate episode of major depressive disorder, unspecified whether recurrent (CMS-HCC) Social History Tobacco Use Types Packs/Day Years Used Date Smoking Tobacco: Never Smokeless Tobacco: Never Alcohol Use Standard Drinks/Week Comments No 0 (1 standard drink = 0.6 oz pur e alcohol) PHQ-2 Answer Date Recorded PHQ-2 Score 1 06/07/2019 Childcare Answer Date Recorded Childcare Unknown 04/14/2019 Employment Answer Date Recorded Employment Unknown 04/14/2019 Comments No Sex and Gender Information Value Date Recorded Sex Assigned at Not on file Legal Sex Female 11:55 AM EDT Gender Identity Female 03/21/2020 8:20 PM EDT Sexual Orientation Straight 10/05/2022 8: 20 AM EST documented as of this encounter Plan of Treatment Upcoming Encounters Date Type Department Care Team (Late Contact Info) Description 09/05/2025 1:00 PM EDT Office Visit [facility] [address] [place] [phone] Jaylan Gray, TECHNOLOGY ENGINEER-WIND TURBINE SHEET METAL WORKER [address] [place] [address] documented as of this encounter Visit Diagnoses Diagnosis Current moderate episode of major depressive disorder, unspecified whether recurrent (CMS-HCC) documented in this encounter Additional Health Concerns Infection Onset Date Last Indicated Resolved Time Enteric Rule-Out Comment:Cancelled by lab d/t specimen being formed 10/17/2019 10/17/2019 10/18/2019 6:48 AM EST Respiratory Rule-Out 10/17/2019 10/17/2019 019 9:23 AM EST COVID-19 Rule-Out 09/17/2020 09/17/2020 09/17/2020 3:16 PM EST COVID-19 Rule-Out 01/14/2021 01/14/2021 01/14/2021 10:35 AM EST COVID-19 Rule-Out 12/19/2021 12/19/2021 12/19/2021 12:48 AM [...] Assessment Noted Time PHQ-9 Depression Total Score: 3 06/07/20 19 10:00 AM EDT documented as of this encounter Care Teams Spa Attendant Relationship Specialty Start Date End Date Jaylan Gray, TECHNOLOGY ENGINEER-WIND TURBINE SHEET METAL WORKER [address] [place] [address] PCP - General Nurse Practitioner 05/30/25 documented as of this encounter
--- OUTSIDE RECORDS SUMMARY | 2025-06-25 13:02 | XMS_ITS | Encounter Summary ---
Author Organization [facility] [employer] s tem Address [id number] [address] [place] [address] Care Team Providers Care Lug Loader Name Role Phone Jaylan Gray APRN-LOCOMOTIVE ELECTRICIAN Primary Care Provider + Encounter Details Date Type Department Care Team (Late st Contact Info) Description 06/21/2023 Telephone [facility] [address] [place] [address] Leslie Johnson CMA Social History Tobacco Use Types Packs/Day Years [...] often do you attend chur ch or episcopalian services? More than 4 times per year 10/05/2022 Do you belong to any clubs o r organizations such as anabaptist groups, unions, fraternal or athletic groups, or [...] PHQ-2 Answer Date Recorded Total Score 0 05/04/2023 [facility] - Occupational [...] Recorded Do you need help finding a [facility] career center and/or a training program? [...] AM EST documented as of this encounter Miscellaneous Notes * Telephone Encounter - Leslie Johnson CMA - 06/21/2023 10:10 AM EDT Pt called and said she is having a lot of trouble sleeping, states she is sleeping only about 2 hours at a time. She has tried melatonin and trazadone and said they are not helpful, can you send in sleep med for pt, or will she need an appt? [facility] [place], please. Michael back to Ileana. * Telephone Encounter - KAIDEN Werner - 06/21/2023 10:10 AM EDT Possibly do a video visit to discuss further. * Telephone Encounter - Leslie Johnson CMA - 06/21/2023 10:10 AM EDT Called and left message to callback for appt, video visit is fine, per Deja. documented in this encounter Plan of Treatment Upcoming Encounters Date Type Department Care Team (Late st Contact Info) Description 09/05/2025 1:00 PM EDT Office Visit [facility] - Family Medicine [address] [place] [address] Jaylan Gray, ALICE-LOCOMOTIVE ELECTRICIAN [address], [place] [id number] documented as of this encounter Visit Diagnoses Not on filedocumented in this encounter Additional Health Concerns Infection Onset Date Last Indicated Resolved Time COVID-19 Rule-Out 06/13/2024 06/13/2024 06/13/2024 7:31 AM EDT COVID-19 Rule-Out 08/12/2024 08/12/2024 08/12/2024 3:20 AM EDT COVID-19 Positive 08/12/2024 08/12/2024 09/02/2024 11:12 PM EDT COVID-19 Rule-Out 11/09/2024 11/09/2024 11/09/2024 7:48 AM EST Respiratory Rule-Out 02/12/2025 02/12/2025 025 1:47 PM EDT Assessment Noted Time PHQ-9 Depression Total Score: 0 05/04/20 2:00 PM EDT A Body Mass Index follow-up plan has been documented for the patient 05/17/2023 7:25 AM EDT documented as of this encounter Care Teams Lug Loader Relationship Specialty Start Date End Date Jaylan Gray, AIRFIELD ENGINEER OFFICER-LOCOMOTIVE ELECTRICIAN [address] [place] [address] PCP - General Nurse Practitioner 05/30/25 documented as of this encounter
--- OUTSIDE RECORDS SUMMARY | 2025-06-25 13:02 | XMS_ITS | Encounter Summary ---
Author Organization [employer] [facility] tem Address [facility] [id number] [address] [place] [address] Care Team Providers Care Competency Evaluated Nurse Aide Name Role Phone Chrisstacie Jaylan Cohen [facility] Primary Care Provider + Reason for Visit * Reason Comments Med Refill Encounter Details Date Type Department Care Team (Late Contact Info) Description 01/11/2020 Refill [facility] [address] [place] [address] Stephanie Ley, [facility] [address] LEFT PM 05/14/25 [place] [address] Social History Tobacco Use Types Packs/Day Years Used Date Smoking Tobacco: Never Smokeless Tobacco: Never Alcohol Use Standard Drinks/Week Comments No 0 (1 standard drink = 0.6 oz pur e alcohol) PHQ-2 Answer Date Recorded PHQ-2 Score 0 12/11/2019 Childcare Answer Date Recorded Childcare Unknown 04/14/2019 [...] Medicine - Family Medicine [address] [place] [address] Jaylan Gray, LIFE SCIENCES MANAGER-CASH GRAIN GROWER [address], [address] [address] documented as of this encounter Visit Diagnoses Not on filedocumented in this encounter Additional Health Concerns Infection Onset Date Last Indicated Resolved Time COVID-19 Rule-Out 09/17/2020 09/17/2020 09/17/2020 3:16 PM [...] Noted Time PHQ-9 Depression Total Score: 0 12/11/19 20 1:05 PM EST A Body Mass Index follow-up plan has been documented for the patient 12/22/2019 7:24 AM EST documented as of this encounter Care Teams Competency Evaluated Nurse Aide Relationship Specialty Start Date End Date Jaylan Gray, LIFE SCIENCES MANAGER-CASH GRAIN GROWER [address] [place] [address] PCP - General Nurse Practitioner 05/30/25 documented as of this encounter
--- OUTSIDE RECORDS SUMMARY | 2025-06-25 13:02 | XMS_ITS | Encounter Summary ---
Author Organization [facility] [employer] Address [facility] [id number] [address] [place] [address] Care Team Providers Care Clinching Machine Operator Name Role Phone Jaylan Gray Vicki JENKINS-NURSING TECHNICIAN Primary Care Provider + Encounter Details Date Type Department Care Team (Late st Contact Info) Description 11/16/2019 Refill [facility] [address] [facility] [place] [address] Thais Pichardo MA Abrasion (Primary Dx); Abrasion of right knee, initial encounter Social History Tobacco Use Types Packs/Day Years Used Date Smoking Tobacco: Never Smokeless Tobacco: Never Alcohol Use Standard Drinks/Week Comments No 0 (1 standard drink = 0.6 oz pur e alcohol) PHQ-2 Answer Date Recorded PHQ-2 Score 7 10/31/2019 Childcare Answer Date Recorded Childcare Unknown 04/14/2019 [...] Telephone Encounter - Thais Pichardo MA - 11/16/2019 11:28 AM EST Pt called and is having sores on her legs again and wants a refill on antibiotic cream You gave herin the past. Told her I will call her once Deja reviews Thais Pichardo MA 11/16/19 1131 documented in this encounter Plan of Treatment Upcoming Encounters Date Type Department Care Team (Late st Contact Info) Description 09/05/2025 1:00 PM EDT Office Visit [facility] - Family Medicine [address] [place] [address] Jaylan Gray, LAYOUT MECHANIC-NURSING TECHNICIAN [address], [address] [address] documented as of this encounter Visit Diagnoses Diagnosis Abrasion- Primary Abrasion or friction burn of other, multiple, and unspecified sites, without mention of infection Abrasion of right knee, initial encounter documented in this encounter Additional Health Concerns [...] Assessment Noted Time PHQ-9 Depression Total Score: 7 10/31/20 19 12:00 PM EST A Body Mass Index follow-up plan has been documented for the patient 12/22/2019 7:24 AM EST documented as of this encounter Care Teams Clinching Machine Operator Relationship Specialty Start Date End Date Jaylan Gray, LAYOUT MECHANIC-NURSING TECHNICIAN [address] [place] [address] PCP - General Nurse Practitioner 05/30/25 documented as of this encounter
--- OUTSIDE RECORDS SUMMARY | 2025-06-25 13:02 | XMS_ITS | Encounter Summary ---
Author Organization [facility] tem Address [facility] [id number] [address] [place] [address] Care Team Providers Care Marketing Content Specialist Name Role Phone Jaylan Gray Vicki JENKINS-DUCK FARMER Primary Care Provider + Encounter Details Date Type Department Care Team (Late st Contact Info) Description 03/19/2021 [facility]phone [facility] [address] [place] [address] [place] [phone] Thais Pichardo MA Social History Tobacco Use [...] Telephone Encounter - Thais Pichardo MA - 03/19/2021 9:13 AM EDT [facility] called and she is admitted there, they had me fax her med list over to them * Telephone Encounter - Leslie Johnson CMA - 03/19/2021 9:13 AM EDT Pt's daughter Ileana just called in, said pt is now admitted into [facility]. Said her depression got out of hand, so they are currently caring for her. documented in this encounter Plan of Treatment Upcoming Encounters Date Type Department Care Team (Late st Contact Info) Description 09/05/2025 1:00 PM EDT Office Visit [facility] - Family Medicine [address] [place] [address] Jaylan Gray, TREE THINNER-DUCK FARMER [address], [address] [address] documented as of this encounter Visit Diagnoses [...] documented as of this encounter Care Teams Marketing Content Specialist Relationship Specialty Start Date End Date Jaylan Gray, TREE THINNER-DUCK FARMER [address] [place] [address] PCP - General Nurse Practitioner 05/30/25 documented as of this encounter
--- OUTSIDE RECORDS SUMMARY | 2025-06-25 13:02 | XMS_ITS | Encounter Summary ---
Author Organization [facility] [employer] s tem Address [facility] [id number] [address] [place] [address] Care Team Providers Care Synthetic Filament Extruder Name Role Phone Jaylan Gray [facility] Primary Care Provider + Reason for Visit * Reason Comments Med Refill Encounter Details Date Type Department Care Team (Late Contact Info) Description 07/23/2019 Refill [facility] [address] [place] [address] Stephanie Ley, POST SPLITTER-[facility] [address] LEFT PM 05/14/25 [place] [phone] Type 2 diabetes mellitus with stage 4 chronic kidney disease, with long-term current use of insulin ([facility]); Urinary, incontinence, stress female Social History Tobacco Use Types Packs/Day Years Used Date Smoking Tobacco: Never Smokeless Tobacco: Never Alcohol Use Standard Drinks/Week Comments No 0 (1 standard drink = 0.6 oz pur e alcohol) PHQ-2 Answer Date Recorded PHQ-2 Score 3 07/17/2019 Childcare Answer Date Recorded Childcare Unknown 04/14/2019 [...] Medicine - Family Medicine [address] [place] [address] Jaylan Gray, POST SPLITTER-BISQUE GRADER [address], [address] [place] [address] documented as of this encounter Visit Diagnoses Diagnosis Type 2 diabetes mellitus with stage 4 chronic kidney disease, with long-term current use of insulin ([facility]) Urinary, incontinence, stress female Female stress incontinence documented in this encounter Additional Health Concerns [...] documented as of this encounter Care Teams Synthetic Filament Extruder Relationship Specialty Start Date End Date Jaylan Gray, POST SPLITTER-BISQUE GRADER [address] [place] [address] PCP - General Nurse Practitioner 05/30/25 documented as of this encounter
--- OUTSIDE RECORDS SUMMARY | 2025-06-25 13:02 | XMS_ITS | Encounter Summary ---
Author Organization [facility] Address [facility] [id number] [address] [place] [address] Care Team Providers Care Oxygen Therapy Teacher Name Role Phone Isaac Jaylan Cohen APRN-CLINICAL CYTOGENETICIST Primary Care Provider + Reason for Visit * Reason Onset Date Comments Med Refill 07/05/2019 Encounter Details Date Type Department Care Team (Late st Contact Info) Description 07/05/2019 Refill [facility] [address] [facility] [place] [address] Thais Pichardo MA Lumbar back pain with radiculopathy affecting left lower extremity; 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 mellitus ([facility]) Social History Tobacco Use Types Packs/Day Years [...] Telephone Encounter - Thais Pichardo MA - 07/05/2019 8:43 AM EDT Pt needs refill on Gabapentin, she will be out for the weekend, told her if it needs picked up, we will call Thais Pichardo MA 07/05/19 0844 documented in this encounter Plan of Treatment Upcoming Encounters Date Type Department Care Team (Late st Contact Info) Description 09/05/2025 1:00 PM EDT Office Visit [facility] - Family Medicine [address] [place] [address] Jaylan Gray, FIXED WING AIRCRAFT CREW CHIEF-CLINICAL CYTOGENETICIST [address], [address] [place] [address] documented as of this encounter Visit Diagnoses Diagnosis Lumbar back pain with radiculopathy affecting left lower extremity 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) documented in this encounter Additional Health [...] documented as of this encounter Care Teams Oxygen Therapy Teacher Relationship Specialty Start Date End Date Jaylan Gray, FIXED WING AIRCRAFT CREW CHIEF-CLINICAL CYTOGENETICIST [address] [place] [address] PCP - General Nurse Practitioner 05/30/25 documented as of this encounter
--- OUTSIDE RECORDS SUMMARY | 2025-06-25 13:02 | XMS_ITS | Encounter Summary ---
Author Organization [facility] Address [id number] [address] [place] [address] Care Team Providers Care Mathematical Statistician Name Role Phone Jaylan Gray APRN-MAKE UP MAN Primary Care Provider + Reason for Visit * Reason Onset Date Comments Med Refill 06/26/2019 Encounter Details Date Type Department Care Team (Late st Contact Info) Description 06/26/2019 Refill [facility] [address] [place] [address] Thais Pichardo MA Mixed diabetic hyperlipidemia associated with type 2 diabetes mellitus ([facility]) Social History Tobacco Use Types Packs/Day Years [...] Telephone Encounter - Thais Pichardo MA - 06/26/2019 8:35 AM EDT Needs Humalog refilled, she had injections done on 06/23 at pain management Her BS this am was 176, running a little higher. Isn't sure if you want her to use more or what to do.....told her I will call her back once Deja reviews. She is feeling much better since injections with pain and her balance. Thais Pichardo MA 06/26/19 0838 documented in this encounter Plan of Treatment Upcoming Encounters Date Type Department Care Team (Late st Contact Info) Description 09/05/2025 1:00 PM EDT Office Visit [facility] - Family Medicine [address] [place] [address] Jaylan Gray, MOBILE MANAGER-MAKE UP MAN [address], [address] [address] documented as of this encounter Visit Diagnoses Diagnosis Mixed diabetic hyperlipidemia associated with type 2 diabetes mellitus ([facility]) documented in this encounter Additional Health Concerns [...] documented as of this encounter Care Teams Mathematical Statistician Relationship Specialty Start Date End Date Jaylan Gray, MOBILE MANAGER-MAKE UP MAN [address] [place] [address] PCP - General Nurse Practitioner 05/30/25 documented as of this encounter
--- OUTSIDE RECORDS SUMMARY | 2025-06-25 13:02 | XMS_ITS | Encounter Summary ---
Author Organization [employer] [facility] tem Address [id number] [address] [place] [address] Care Team Providers Care Slack Cooper Name Role Phone Chrisstacie Jaylan Cohen [facility] Primary Care Provider + Reason for Visit * Reason Comments Med Refill Encounter Details Date Type Department Care Team (Late Contact Info) Description 01/14/2020 Refill [facility] [address] [place] [place] [address] Stephanie Ley, [facility] [address] PM 05/14/25 [place] [address] Mixed hyperlipidemia Social History Tobacco Use Types Packs/Day Years [...] Medicine - Family Medicine [address] [place] [address] Jaylan Gray, PRELOAD SUPERVISOR-ENGINEERING OPERATOR [address] [facility] [place] [address] documented as of this encounter Visit Diagnoses Diagnosis Mixed hyperlipidemia documented in this encounter Additional Health Concerns [...] documented as of this encounter Care Teams Slack Cooper Relationship Specialty Start Date End Date Jaylan Gray, PRELOAD SUPERVISOR-ENGINEERING OPERATOR [address] [place] [address] PCP - General Nurse Practitioner 05/30/25 documented as of this encounter
--- OUTSIDE RECORDS SUMMARY | 2025-06-25 13:02 | XMS_ITS | Encounter Summary ---
Author Organization [facility] [employer] s tem Address [facility] [id number] [address] [place] [address] Care Team Providers Care Larriman Helper Name Role Phone Jaylan Gray APRN-SINTER MACHINE OPERATOR Primary Care Provider + Encounter Details Date Type Department Care Team (Late st Contact Info) Description 01/29/2023 [facility]phone [facility] [address] [place] [address] Leslie Johnson CMA Social History [...] often do you attend chur ch or faith services? More than 4 times per year 10/05/2022 Do you belong to any clubs o r organizations such as lutheran groups, unions, fraternal or athletic groups, or [...] 10/05/2022 PHQ-2 Answer Date Recorded Total Score 13 10/05/2022 [facility] - [...] Recorded Do you need help finding a [facility] career center and/or a training program? [...] have Coronavirus / COVID-19? No / Unsure 01/15/2023 1:47 PM EST documented as of this encounter Miscellaneous Notes * Telephone Encounter - Leslie Johnson CMA - 01/29/2023 9:26 AM EDT FYI - I had Cuca make an appt to come in and discuss this all with you. Pt said she was due for heart surgery to replace a valve in her heart, but the cardiologists said they found a mass in her breast/chest and will not do her surgery until she has a mammogram. Pt is refusing to do so, but I told her I wanted her to come in and talk to you. I spoke to Ileana, and she set up Cuca with her cardiologists, Dr Connor. This is about 2 weeks after her appt with you. * Telephone Encounter - KAIDEN Werner - 01/29/2023 9:26 AM EDT Thank you. documented in this encounter Plan of Treatment Upcoming Encounters Date Type Department Care Team (Late st Contact Info) Description 09/05/2025 1:00 PM EDT Office Visit [facility] - Family Medicine [address] [place] [address] Jaylan Gray, ALICE-SINTER MACHINE OPERATOR [address], [address] [address] documented as of this encounter Visit Diagnoses [...] Assessment Noted Time PHQ-9 Depression Total Score: 13 022 8:39 AM EST A Body Mass Index follow-up plan has been documented for the patient 08/10/2022 7:14 AM EDT documented as of this encounter Care Teams Larriman Helper Relationship Specialty Start Date End Date Jaylan Gray, PERMASTONE INSTALLER-SINTER MACHINE OPERATOR [address] [place] [address] PCP - General Nurse Practitioner 05/30/25 documented as of this encounter
--- OUTSIDE RECORDS SUMMARY | 2025-06-25 13:02 | XMS_ITS | Encounter Summary ---
Author Organization [facility] [employer] [facility] tem Address [facility] [place][id number] [address] [place] [address] Care Team Providers Care Music Manager Name Role Phone Jaylan Gray APRN-DRUG DEPARTMENT WORKER Primary Care Provider + Encounter Details Date Type Department Care Team (Late st Contact Info) Description 03/17/2023 [facility] [address] [address] Leslie Johnson CMA Social History [...] often do you attend chur ch or mormon services? More than 4 times per year 10/05/2022 Do you belong to any clubs o r organizations such as advent groups, unions, fraternal or athletic groups, or [...] Answer Date Recorded Total Score 0 02/09/2023 [facility] ional [facility] - Occupational Stress [...] Recorded Do you need help finding a [facility] career center and/or a training program? No [...] Telephone Encounter - Leslie Johnson CMA - 03/17/2023 9:49 AM EDT Dahlia called, letting you know she is canceling the Ultrasound guided localization breast initial right (Order [id number]) She said pt already had a breast biopsy and she thinks this was an error, or duplicate order. * Telephone Encounter - KAIDEN Werner - 03/17/2023 9:49 AM EDT Correct. I asked someone yesterday to do this. Thank you documented in this encounter Plan of Treatment Upcoming Encounters Date Type Department Care Team (Late st Contact Info) Description 09/05/2025 1:00 PM EDT Office Visit [facility] - Family Medicine [address] [place] [address] Jaylan Gray, ENVIRONMENTAL FIELD OFFICE MANAGER-DRUG DEPARTMENT WORKER [address], [address] [place] [address] documented as of this encounter Visit Diagnoses [...] Time PHQ-9 Depression Total Score: 0 02/10/20 23 2:48 PM EDT A Body Mass Index follow-up plan has been documented for the patient 02/15/2023 11:15 AM EDT documented as of this encounter Care Teams Music Manager Relationship Specialty Start Date End Date Jaylan Gray, ENVIRONMENTAL FIELD OFFICE MANAGER-DRUG DEPARTMENT WORKER [address] [place] [address] PCP - General Nurse Practitioner 05/30/25 documented as of this encounter
--- OUTSIDE RECORDS SUMMARY | 2025-06-25 13:02 | XMS_ITS | Encounter Summary ---
Author Organization [facility] [employer] s tem Address [id number] [address] [place] [address] Care Team Providers Care Topographical Drafter Name Role Phone Jaylan Gray ASSEMBLER MOTOR VE[facility]ICLE[facility] Primary Care Provider + Reason for Visit * Reason Comments Med Refill Encounter Details Date Type Department Care Team (Late Contact Info) Description 12/10/2019 Refill [facility] [address] [place] [address] Stephanie Ley, ASSEMBLER MOTOR VEHICLE[facility] [address] PM 05/14/25 [place] [address] Lumbar back pain with radiculopathy affecting left lower extremity; 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 mellitus ([facility]) Social History Tobacco Use Types Packs/Day Years [...] - Family Medicine [address] [place] [address] Jaylan Gray, ASSEMBLER MOTOR VEHICLE-WIRE FRAME LAMPSHADE MAKER [address], [address] [facility] [place] [place] [address] documented as of this encounter Visit Diagnoses Diagnosis Lumbar back pain with radiculopathy affecting left lower extremity 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 mellitus ([facility]) documented in this encounter Additional Health Concerns [...] documented as of this encounter Care Teams Topographical Drafter Relationship Specialty Start Date End Date Jaylan Gray, ASSEMBLER MOTOR VEHICLE-WIRE FRAME LAMPSHADE MAKER [address] [place] [address] PCP - General Nurse Practitioner 05/30/25 documented as of this encounter
--- OUTSIDE RECORDS SUMMARY | 2025-06-25 13:02 | XMS_ITS | Encounter Summary ---
Author Organization [facility] Sys tem Address [facility]-[id number] [address] [place] [address] Care Team Providers Care Rn Digestive Name Role Phone Jaylan Gray Vicki JENKINS-BUCKET WASH OPERATOR Primary Care Provider + Encounter Details Date Type Department Care Team (Late st Contact Info) Description 05/29/2019 Refill [facility] [address] [facility] [place] [phone] Thais Pichardo MA Social History Tobacco Use Types Packs/Day Years Used Date Smoking Tobacco: Never Smokeless Tobacco: Never Alcohol Use Standard Drinks/Week Comments No 0 (1 standard drink = 0.6 oz pur e alcohol) PHQ-2 Answer Date Recorded PHQ-2 Score 6 05/16/2019 Childcare Answer Date Recorded Childcare Unknown 04/14/2019 [...] Telephone Encounter - Thais Pichardo MA - 05/29/2019 1:10 PM EDT metrix test strips not covered, pended generic and put note to give what is covered by ins, please resend Thais Pichardo MA 05/29/19 1312 documented in this encounter Plan of Treatment Upcoming Encounters Date Type Department Care Team (Late st Contact Info) Description 09/05/2025 1:00 PM EDT Office Visit [facility] - Family Medicine [address] [place] [address] Jaylan Gray, LAW OFFICE MANAGER-BUCKET WASH OPERATOR [address], [address] [place] [address] documented as of this encounter Visit [...] Assessment Noted Time PHQ-9 Depression Total Score: 6 05/10/20 19 2:00 PM EDT documented as of this encounter Care Teams Rn Digestive Relationship Specialty Start Date End Date Jaylan Gray, LAW OFFICE MANAGER-BUCKET WASH OPERATOR [address] [place] [address] PCP - General Nurse Practitioner 05/30/25 documented as of this encounter
--- OUTSIDE RECORDS SUMMARY | 2025-06-25 13:02 | XMS_ITS | Encounter Summary ---
Author Organization [employer] [facility] tem Address [id number] [address] [place] [address] Care Team Providers Care Propagation Manager Name Role Phone Chrisstacie Jaylan Cohen [facility] Primary Care Provider + Reason for Visit * Reason Comments Med Refill Encounter Details Date Type Department Care Team (Late Contact Info) Description 10/28/2019 Refill [facility] [address] [place] [address] Stephanie Ley, [facility] [address] LEFT PM 05/14/25 [place] [address] Urinary, incontinence, stress female Social History Tobacco [...] Medicine - Family Medicine [address] [place] [address] Jaylan Gray, LABELER-KEY ACCOUNT COORDINATOR [address], [address] [address] documented as of this encounter Visit Diagnoses Diagnosis Urinary, incontinence, stress female Female stress incontinence [...] Assessment Noted Time PHQ-9 Depression Total Score: 2 09/11/20 19 10:28 AM EDT documented as of this encounter Care Teams Propagation Manager Relationship Specialty Start Date End Date Jaylan Gray, LABELER-KEY ACCOUNT COORDINATOR [address] [place] [address] PCP - General Nurse Practitioner 05/30/25 documented as of this encounter
--- OUTSIDE RECORDS SUMMARY | 2025-06-25 13:02 | XMS_ITS | Encounter Summary ---
Author Organization [facility] Sys tem Address [facility]-[id number] [address] [place] [address] Care Team Providers Care Icu Staff Nurse Name Role Phone Jaylan [facility] Primary Care Provider + Reason for Visit * Reason Comments Med Refill Encounter Details Date Type Department Care Team (Late st Contact Info) Description 07/18/2019 Refill [facility] [address] [place] [address] Stephanie Ley APRN-TRANSCRIPTION SPECIALIST [address] PM 05/14/25 [place] [phone] Current moderate episode of major depressive disorder, unspecified whether recurrent (CMS-HCC); Mixed hyperlipidemia Social History Tobacco Use Types [...] encounter Miscellaneous Notes * Telephone Encounter - KAIDEN Werner - 07/18/2019 10:04 AM EDT Can you call patient and confirm she is taking 50 mg or sertraline. I never increased to 100, should be 50 mg. She was at pain management and reports she was taking 100 mg. Note 50 mg is blue pill. documented in this encounter Plan of Treatment Upcoming Encounters Date Type Department Care Team (Late st Contact Info) Description 09/05/2025 1:00 PM EDT Office Visit [facility] - Family Medicine [address] [place] [address] Jaylan Gray, ALICE-TRANSCRIPTION SPECIALIST [address], [address] [place] [address] documented as of this encounter Visit Diagnoses Diagnosis Current moderate episode of major depressive disorder, unspecified whether recurrent ([facility]) Mixed hyperlipidemia documented in this encounter Additional [...] documented as of this encounter Care Teams Icu Staff Nurse Relationship Specialty Start Date End Date Jaylan Gray, RETAIL TEAM MEMBER-TRANSCRIPTION SPECIALIST [address] [place] [address] PCP - General Nurse Practitioner 05/30/25 documented as of this encounter
--- OUTSIDE RECORDS SUMMARY | 2025-06-25 13:02 | XMS_ITS | Encounter Summary ---
Author Organization [facility] tem Address [id number] [address] [place] [address] Care Team Providers Care Motor Adjuster Name Role Phone Jaylan Gray GAS METER READER-HEMODIALYSIS PATIENT CARE SPECIALIST Primary Care Provider + Encounter Details Date Type Department Care Team (Late st Contact Info) Description 03/22/2023 Telephone [facility] - Family Medicine [address] [place] [address] Stephanie Ley, GAS METER READER-[facility] [address] PM 05/14/25 [place] [address] Social History Tobacco Use Types [...] often do you attend chur ch or jainism services? More than 4 times per year 10/05/2022 Do you belong to any clubs o r organizations such as rastafarian groups, unions, fraternal or athletic groups, or [...] Answer Date Recorded Total Score 0 02/09/2023 [facility] Occupat ional Health - Occupational Stress [...] Recorded Do you need help finding a [facility] and/or a training program? [...] Medicine - Family Medicine [address] [place] [address] Jaylan Gray, GAS METER READER-HEMODIALYSIS PATIENT CARE SPECIALIST [address], [place] [id number] documented as of this encounter Visit Diagnoses [...] documented as of this encounter Care Teams Motor Adjuster Relationship Specialty Start Date End Date Jaylan Gray, GAS METER READER-HEMODIALYSIS PATIENT CARE SPECIALIST [address] [place] [address] PCP - General Nurse Practitioner 05/30/25 documented as of this encounter
--- OUTSIDE RECORDS SUMMARY | 2025-06-25 13:02 | XMS_ITS | Encounter Summary ---
Author Organization [facility] [employer] [employer] s tem Address [facility]-[id number] [address] [place] [address] Care Team Providers Care Skilled Nursing Case Manager Name Role Phone Jaylan Gray APRN-MINING ENGINEER Primary Care Provider + Encounter Details Date Type Department Care Team (Late st Contact Info) Description 08/25/[address] [facility] [address] [place] [address] Deja Mojica CMA Social History Tobacco Use Types Packs/Day [...] 10/05/2022 How often do you attend chur or buddhist services? More than 4 times per year 10/05/2022 Do you belong to any clubs o r organizations such as worship groups, unions, fraternal or athletic groups, or [...] you have a drink containing alcohol? Never 08/17/2023 Q2: How many drinks containi ng alcohol do you have on a typical day when you are drinking? Patient does not drink Q3: How often do you have si x or more drinks on one occasion? Never 08/17/2023 Overall Financial Resource Strain (CARDIA) Answe r Date Recorded How hard is it for you to pa y for the very basics like food, housing, medical care, and heating? Not very hard 10/05/2022 PHQ-2 Answer Date Recorded Total Score 0 08/17/2023 [facility] of Occupat ional Health [...] Recorded Do you need help finding a [facility] career center and/or a training program? No [...] encounter Miscellaneous Notes * Telephone Encounter - Deja Mojica CMA - 08/25/2023 9:09 AM EDT She had called to inform us that patient is on Supplemental oxygen and wanted to know when you suggest she uses verse when she does not need to. * Telephone Encounter - KAIDEN Werner - 08/25/2023 9:09 AM EDT Appears hospital ordered it. I did not. I recommend her wearing it when she feels short of breath or more fatigued. I have not seen her yet since discharge. Ask her to review her discharge paperwork and review oxygen orders. * Telephone Encounter - Deja Mojica CMA - 08/25/2023 9:09 AM EDT Left a detailed message on 4m[employer] documented in this encounter Plan of Treatment Upcoming Encounters Date Type Department Care Team (Late st Contact Info) Description 09/05/2025 1:00 PM EDT Office Visit [facility] - Family Medicine [address] [place] [address] Jaylan Gray, ALICE-MINING ENGINEER [address], [facility] [address] [place], [place] [phone] documented as of this encounter Visit Diagnoses [...] Noted Time PHQ-9 Depression Total Score: 0 08/17/20 2:48 PM EDT A Body Mass Index follow-up plan has been documented for the patient 08/10/2023 2:54 PM EDT documented as of this encounter Care Teams Skilled Nursing Case Manager Relationship Specialty Start Date End Date Jaylan Gray, BOARD RUNNER-MINING ENGINEER [address] [place] [address] PCP - General Nurse Practitioner 05/30/25 documented as of this encounter
--- OUTSIDE RECORDS SUMMARY | 2025-06-25 13:02 | XMS_ITS | Encounter Summary ---
Author Organization [facility] Sys tem Address [id number] [address] [place] [address] Care Team Providers Care Fermentologist Name Role Phone Jaylan Gray REMEDIATION TECHNICIANPAM [facility] Primary Care Provider + Reason for Visit * Reason Comments Med Refill Encounter Details Date Type Department Care Team (Late st Contact Info) Description 06/05/2021 Refill [facility] [address] [place] [place] [address] Stephanie Ley, [facility] [address] 05/14/25 [place] [address] Social History Tobacco Use Types Packs/Day Years Used Date Smoking Tobacco: Never Smokeless Tobacco: Never Alcohol Use Standard Drinks/Week Comments No 0 (1 standard drink = 0.6 oz pur e alcohol) PHQ-2 Answer Date Recorded Total Score 0 05/28/2021 Childcare Answer Date Recorded Childcare Unknown 04/14/2019 [...] have Coronavirus / COVID-19? No / Unsure 06/06/2021 9:43 AM EDT documented as of this encounter Plan of Treatment Upcoming Encounters Date Type Department Care Team (Late st Contact Info) Description 09/05/2025 1:00 PM EDT Office Visit [facility] - Family Medicine [address] [place] [address] Jaylan Gray, REMEDIATION TECHNICIAN-BONE PULLER [address], [address] [place] [address] documented as of this encounter Visit Diagnoses [...] Noted Time PHQ-9 Depression Total Score: 0 05/28/20 21 10:00 AM EDT A Body Mass Index follow-up plan has been documented for the patient 06/02/2021 11:04 AM EDT documented as of this encounter Care Teams Fermentologist Relationship Specialty Start Date End Date Jaylan Gray APRN-BONE PULLER [address] [place] [address] PCP - General Nurse Practitioner 05/30/25 documented as of this encounter
--- OUTSIDE RECORDS SUMMARY | 2025-06-25 13:02 | XMS_ITS | Encounter Summary ---
Author Organization [facility] tem Address [facility]-[id number] [address] [place] [address] Care Team Providers Care Fabric Coating Supervisor Name Role Phone Jaylan Gray APRN-P D DRIVER Primary Care Provider + Encounter Details Date Type Department Care Team (Late st Contact Info) Description 01/21/2021 Telephone [facility] Ob[facility]ne[facility] [address] [place] [address] Radha Maloney MA Social History Tobacco Use Types Packs/Day [...] have Coronavirus / COVID-19? No / Unsure 01/20/2021 1:03 PM EST documented as of this encounter Miscellaneous Notes * Telephone Encounter - Radha Maloney MA - 01/21/2021 8:48 AM EST Patients surgery on January 29 moved from 12 noon to 8am. Patient aware Radha Maloney MA 01/21/21 0849 documented in this encounter Plan of Treatment Upcoming Encounters Date Type Department Care Team (Late st Contact Info) Description 09/05/2025 1:00 PM EDT Office Visit [facility] - Family Medicine [address] [place] [address] Jaylan Gray, APARTMENT COMMUNITY ASSISTANT MANAGER-P D DRIVER [address], [address] [place] [address] documented as of this encounter Visit Diagnoses [...] Noted Time PHQ-9 Depression Total Score: 0 11/25/19 21 10:44 AM EST A Body Mass Index follow-up plan has been documented for the patient 01/02/2021 8:51 AM EST documented as of this encounter Care Teams Fabric Coating Supervisor Relationship Specialty Start Date End Date Jaylan Gray, APARTMENT COMMUNITY ASSISTANT MANAGER-P D DRIVER [address] [place] [address] PCP - General Nurse Practitioner 05/30/25 documented as of this encounter
--- OUTSIDE RECORDS SUMMARY | 2025-06-25 13:02 | XMS_ITS | Encounter Summary ---
Author Organization [facility] [employer] Sys tem Address [facility]-[id number] [address] [place] [address] Care Team Providers Care Gift Shop Clerk Name Role Phone Chrismattinder Jaylan Cohen APRN-EVENTS AND PROMOTIONS ASSISTANT Primary Care Provider + Reason for Visit * Reason Onset Date Comments Med Refill 06/19/2019 Encounter Details Date Type Department Care Team (Late st Contact Info) Description [facility]/19[facility] [address] [facility] [address] Thais Pichardo MA Type 2 diabetes mellitus with stage 4 chronic kidney disease, with long-term current use of insulin ([facility] (Primary Dx); Lumbar back pain with radiculopathy affecting left lower extremity; Controlled type 2 diabetes mellitus with diabetic nephropathy, without long-term current use of insulin ([facility]) Social History Tobacco Use Types Packs/Day Years [...] Telephone Encounter - Thais Pichardo MA - 06/19/2019 8:13 AM EDT SHE RAN OUT Thais Pichardo MA 06/19/19 0814 documented in this encounter Plan of Treatment Upcoming Encounters Date Type Department Care Team (Late st Contact Info) Description 09/05/2025 1:00 PM EDT Office Visit [facility] - Family Medicine [address] [place] [address] Jaylan Gray, BILINGUAL INSTRUCTOR-EVENTS AND PROMOTIONS ASSISTANT [address], [address] [place] [address] documented as of this encounter Visit Diagnoses Diagnosis Type 2 diabetes mellitus with stage 4 chronic kidney disease, with long-term current use of insulin ([facility])- Primary Lumbar back pain with radiculopathy affecting left lower extremity Controlled type 2 diabetes mellitus with diabetic nephropathy, without long-term current use of insulin ([facility]) documented in this encounter Additional Health Concerns [...] documented as of this encounter Care Teams Gift Shop Clerk Relationship Specialty Start Date End Date Jaylan Gray, BILINGUAL INSTRUCTOR-EVENTS AND PROMOTIONS ASSISTANT [address] [place] [address] PCP - General Nurse Practitioner 05/30/25 documented as of this encounter
--- OUTSIDE RECORDS SUMMARY | 2025-06-25 13:02 | XMS_ITS | Encounter Summary ---
Author Organization [employer] Sys tem Address [facility]-[id number] [address] [place] [address] Care Team Providers Care Final Inspector Balance Wheel Name Role Phone ChrismattJaylan loving APRN-TIRE REBUILDER Primary Care Provider + Reason for Visit * Reason Onset Date Comments Med Refill 05/30/2019 Encounter Details Date Type Department Care Team (Late st Contact Info) Description 05/30/2019 Refill [facility] [address] [facility] [place] [address] Thais Pichardo MA Social History Tobacco Use [...] Telephone Encounter - Thais Pichardo MA - 05/30/2019 10:27 AM EDT RENEE CALLED AND ONE TOUCH IS COVERED, NEED NEW METER ORDER Thais Pichardo MA 05/30/19 1029 documented in this encounter Plan of Treatment Upcoming Encounters Date Type Department Care Team (Late st Contact Info) Description 09/05/2025 1:00 PM EDT Office Visit [facility] - Family Medicine [address] [place] [address] Jaylan Gray, TREATER HELPER-TIRE REBUILDER [address], [address] [place] [address] documented as of this encounter Visit Diagnoses [...] documented as of this encounter Care Teams Final Inspector Balance Wheel Relationship Specialty Start Date End Date Jaylan Gray, TREATER HELPER-TIRE REBUILDER [address] [place] [address] PCP - General Nurse Practitioner 05/30/25 documented as of this encounter
--- OUTSIDE RECORDS SUMMARY | 2025-06-25 13:02 | XMS_ITS | Encounter Summary ---
Author Organization [facility] tem Address [id number]-[id number] [address] [place] [address] Care Team Providers Care Oracle Programmer Name Role Phone Isaac Jaylan Vicki JENKINS-STRIPPER PRINTED CIRCUIT BOARDS Primary Care Provider + Encounter Details Date Type Department Care Team (Late st Contact Info) Description 12/04/2020 [facility] [address] [place] [address] Thais Pichardo MA Social History Tobacco Use [...] have Coronavirus / COVID-19? No / Unsure 12/05/2020 9:45 AM EST documented as of this encounter Miscellaneous Notes * Telephone Encounter - Thais Pichardo MA - 12/04/2020 3:21 PM EST Called and said swelling in feet is better, and sugars are still different. She is following sliding scale from Deja and she is feeling ok. Her FBS are around 140s. Ileana is going to TICKET SALES SUPERVISOR appt tomorrow with her. Thais Pichardo MA 12/04/20 1524 documented in this encounter Plan of Treatment Upcoming Encounters Date Type Department Care Team (Late st Contact Info) Description 09/05/2025 1:00 PM EDT Office Visit [facility] - Family Medicine [address] [place] [address] Jaylan Gray, AUTOMOTIVE INSTRUCTOR-STRIPPER PRINTED CIRCUIT BOARDS [address], [facility] [address] [place] [address] documented as of this encounter Visit Diagnoses Not on filedocumented in this encounter Additional Health Concerns Infection Onset Date Last Indicated Resolved Time COVID-19 Rule-Out 01/14/2021 01/14/2021 01/14/2021 10:35 AM [...] Time PHQ-9 Depression Total Score: 0 11/25/19 10:44 AM EST A Body Mass Index follow-up plan has been documented for the patient 11/26/2020 7:50 AM EST documented as of this encounter Care Teams Oracle Programmer Relationship Specialty Start Date End Date Jaylan Gray, AUTOMOTIVE INSTRUCTOR-STRIPPER PRINTED CIRCUIT BOARDS [address] [place] [address] PCP - General Nurse Practitioner 05/30/25 documented as of this encounter
--- OUTSIDE RECORDS SUMMARY | 2025-06-25 13:02 | XMS_ITS | Encounter Summary ---
Author Organization [facility] Sys tem Address [facility] [place]-[id number] [address] [place] [address] Care Team Providers Care Hydrodynamicist Name Role Phone Jaylan Gray APRN-LINING MACHINE TENDER Primary Care Provider + Encounter Details Date Type Department Care Team (Late st Contact Info) Description 02/19/2023 Orders Only [facility] Cardiology [address] [place] [address] External, Scanning Provider Social History Tobacco Use Types Packs/Day Years [...] Never 10/05/2022 How often do you attend [facility] or mormonism services? More than 4 times per year [...] Answer Date Recorded Total Score 0 02/09/2023 [facility] of Occupat ional Health - Occupational [...] Recorded Do you need help finding a [facility] career center and/or a training [...] PM EDT documented as of this encounter Plan of Treatment Upcoming Encounters Date Type Department Care Team (Late st Contact Info) Description 09/05/2025 1:00 PM EDT Office Visit [facility] - Family Medicine [address] [place] [address] Jaylan Gray, MILK DELIVERER-LINING MACHINE TENDER [address], [facility] [address] [place] [address] documented as of this encounter Procedures Procedure Name Priority Date/Time Associated Diagnosis Comments H-CARDIAC CATHETERIZATION Routine 12/07/2022 documented in this encounter Results * Cardiac catheterization (12/07/2022) Anatomical Region Laterality Modality Other us Scanning Provider External CV CARDIAC CATH ORDER QUENTIN Final Result documented in this encounter Visit Diagnoses Not on filedocumented [...] documented as of this encounter Care Teams Hydrodynamicist Relationship Specialty Start Date End Date Jaylan Gray, MILK DELIVERER-LINING MACHINE TENDER [address] [place] [address] PCP - General Nurse Practitioner 05/30/25 documented as of this encounter
--- OUTSIDE RECORDS SUMMARY | 2025-06-25 13:02 | XMS_ITS | Encounter Summary ---
Author Organization [facility] tem Address [id number] [address] [place] [address] Care Team Providers Care Finisher Accordion Name Role Phone Jaylan Gray Vicki JENKINS-LABOR RELATIONS ANALYST Primary Care Provider + Encounter Details Date Type Department Care Team (Late Contact Info) Description 05/07/2021 [facility] [address] [place] [address] Ref Prov, [place] [address] Social History Tobacco Use Types Packs/Day Years Used Date Smoking Tobacco: Never Smokeless Tobacco: Never Alcohol Use Standard Drinks/Week Comments No 0 (1 standard drink = 0.6 oz pur e alcohol) PHQ-2 Answer Date Recorded Total Score 0 03/31/2021 Childcare Answer Date Recorded Childcare Unknown 04/14/2019 [...] have Coronavirus / COVID-19? No / Unsure 04/28/2021 11:42 AM EDT documented as of this encounter Plan of Treatment Upcoming Encounters Date Type Department Care Team ([facility] [address] Contact Info) Description 09/05/2025 1:00 PM EDT Office Visit [facility] [address] [address] Jaylan Gray, UNIT RECEPTIONIST-LABOR RELATIONS ANALYST [address], [address] [place] [address] documented as of this encounter Procedures Procedure Name Priority Date/Time Associated Diagnosis Comments MULTIPLE LABS Routine 04/21/2021 documented in this encounter Results * Multiple labs (04/21/2021) us Not In System Ref Prov FL IMAGING Final Res ult MANUALLY TRANSCRIBED RESULTS documented in this encounter Visit Diagnoses Not [...] Noted Time PHQ-9 Depression Total Score: 0 03/31/20 21 12:54 PM EDT A Body Mass Index follow-up plan has been documented for the patient 03/03/2021 6:26 AM EDT documented as of this encounter Care Teams Finisher Accordion Relationship Specialty Start Date End Date Jaylan Gray, UNIT RECEPTIONIST-LABOR RELATIONS ANALYST [address] [place] [address] PCP - General Nurse Practitioner 05/30/25 documented as of this encounter
--- OUTSIDE RECORDS SUMMARY | 2025-06-25 13:02 | XMS_ITS | Encounter Summary ---
Author Organization [facility] tem Address [id number] [address] [place] [address] Care Team Providers Care Value Stream Manager Name Role Phone Jaylan Gray MAILHOUSE OPERATOR-WEAVING SUPERVISOR Primary Care Provider + Encounter Details Date Type Department Care Team (Late st Contact Info) Description 02/23/2023 Telephone [facility] [address] [place] [address] Stephanie Ley, MAILHOUSE OPERATOR-[facility] [address] PM 05/14/25 [place] [address] Social History Tobacco Use Types [...] often do you attend chur ch or holiness services? More than 4 times per year 10/05/2022 Do you belong to any clubs o r organizations such as samaritan groups, unions, fraternal or athletic groups, or [...] Answer Date Recorded Total Score 0 02/09/2023 [facility] of Occupat ional Health [...] Recorded Do you need help finding a [facility] career [facility] and/or a training program? No [...] * Telephone Encounter - Cinda Garrison - 02/23/2023 1:34 PM EDT [facility] called to let us know that the pt needs an orders for a mammo and an US of the right breast sent to [phone]. Thanks * Telephone Encounter - KAIDEN Werner - 02/23/2023 1:34 PM EDT This has already been done. Look back at messages.I believe Leslie. * Telephone Encounter - Cinda Garrison - 02/23/2023 1:34 PM EDT They would like to do a normal mammo since she has not had one done in a few years to check both along with an Ultrasound. That is just what they told me yesterday * Telephone Encounter - KAIDEN Werner - 02/23/2023 1:34 PM EDT I am going to attach MA to assist. If there is a medical concern, is never preventative screen ryan.It is considered diagnostic. She has a mass * Telephone Encounter - Destiny Alexis CMA - 02/23/2023 1:34 PM EDT I spoke with [facility] and the Radiologist requested an Order for the Screening Mammogram because she has not had one done. He needed to do both breast before he could do the Unilateral one. * Telephone Encounter - KAIDEN Werner - 02/23/2023 1:34 PM EDT I'm going to personally call my self tomorrow. Cannot do screening mammogram if there is a medical problem with the breast. They did complete diagnostic mammogram, its abnormal for malignancy. They did not send additional messages for the next step, biopsy, etc. * Telephone Encounter - Destiny Alexis CMA - 02/23/2023 1:34 PM EDT Did you call on this? * Telephone Encounter - KAIDEN Werner - 02/23/2023 1:34 PM EDT This has been all completed for several weeks. Was referred to oncology documented in this encounter Plan of Treatment Upcoming Encounters Date Type Department Care Team (Late st Contact Info) Description 09/05/2025 1:00 PM EDT Office Visit [facility] [address] [place] [address] Jaylan Gray, ALICE-BARTOLO [address], [facility] [address] [place] [address] documented as of this encounter Visit Diagnoses [...] documented as of this encounter Care Teams Value Stream Manager Relationship Specialty Start Date End Date Jaylan Gray, MAILHOUSE OPERATOR-WEAVING SUPERVISOR [address] [place] [address] PCP - General Nurse Practitioner 05/30/25 documented as of this encounter
--- OUTSIDE RECORDS SUMMARY | 2025-06-25 13:02 | XMS_ITS ---
Author Organization [employer] [facility] tem Address [id number] [address] [place] [address] Care Team Providers Care Web Development Consultant Name Role Phone Jaylan Gray APRN-DIRECTOR SPECIAL EDUCATION Primary Care Provider + Transitional Care Management Status:Closed (Closed) Start date:06/13/2025 End date:2025 Close reason:Call completed Continued Care and Services Coordination
--- OUTSIDE RECORDS SUMMARY | 2025-06-25 13:02 | XMS_ITS | Encounter Summary ---
Author Organization [facility] tem Address [id number] [address] [place] [address] Care Team Providers Care Speed Belt Sander Name Role Phone Jaylan Gray APRN-PROVISIONING SPECIALIST Primary Care Provider + Encounter Details Date Type Department Care Team (Late st Contact Info) Description 01/02/2021 [facility]phone [facility] [address] [place] [phone] Jose Shirley CMA Social History Tobacco Use Types Packs/Day [...] have Coronavirus / COVID-19? No / Unsure 01/02/2021 9:29 AM EST documented as of this encounter Miscellaneous Notes * Telephone Encounter - Jose Matute CMA - 01/02/2021 11:20 AM EST Deja from Dr. Briones's office called to let you know that Cuca couldn't leave a specimen for them to get a urine culture. They gave her supplies to drop her urine off at the lab when she can. Jose Matute CMA 01/02/21 1122 documented in this encounter Plan of Treatment Upcoming Encounters Date Type Department Care Team (Late st Contact Info) Description 09/05/2025 1:00 PM EDT Office Visit [facility] [address] [place] [address] Jaylan Gray, CONVEYOR LOADER-PROVISIONING SPECIALIST [address] , [address] [address] documented as of this encounter Visit Diagnoses [...] documented as of this encounter Care Teams Speed Belt Sander Relationship Specialty Start Date End Date Jayaln Gray, CONVEYOR LOADER-PROVISIONING SPECIALIST [address] [place] [address] PCP - General Nurse Practitioner 05/30/25 documented as of this encounter
--- OUTSIDE RECORDS SUMMARY | 2025-06-25 13:03 | XMS_ITS | Encounter Summary ---
Author Organization [facility] tem Address [id number] [address] [place] [address] Care Team Providers Care Hunting Sales Associate Name Role Phone Jaylan Gray APRN-IRRIGATION FOREMAN Primary Care Provider + Encounter Details Date Type Department Care Team (Late st Contact Info) Description 04/23/2025 Telephone [facility] - [facility] [address] [place] [address] Mignon Dias CMA Social History Tobacco Use Types Packs/Day Years Used Date Smoking Tobacco: Never Smokeless Tobacco: Never Alcohol Use Standard Drinks/Week Comments No 0 (1 standard drink = 0.6 oz pur e alcohol) [facility] Utilities Answer Date Recorded In the past 12 months has e electric, gas, oil, or water company threatened to shut off services in your home? No 03/16/2025 Social Connection and Isolat ion Panel [NHANES] Answer Date Recorded In a typical week, how many times do you talk on the phone with family, friends, or neighbors? Never 10/28/2024 How often do you get togethe r with friends or relatives? More than three times a week 10/28/2024 How often do you attend chur ch or adventism services? More than 4 times per year 10/28/2024 Do you belong to any clubs o r organizations such as hinduism groups, unions, fraternal or athletic groups, or [...] PHQ-2 Answer Date Recorded Total Score 0 04/04/2025 [facility] of Occupat ional [facility] - Occupational Stress Questionnaire Answer Date Recorded [...] medical appointments or from getting medications? No 12/2024 In the past 12 months, has l ack of transportation kept you from meetings, work, or from getting things needed for daily living? No 03/16/2025 Housing Instability Answer Date Recorde d Are you worried or concerned that in the next two months you may not have stable housing that you own, rent or stay in as a part of a household? No 03/16/2025 Childcare Answer Date Recorded Do problems getting child ca re make it difficult for you to work or study? No 10/28/2024 Employment Answer Date Recorded Do you need help finding a [facility] career center and/or a training program? No 10/28/2024 Hunger Screening Answer Date Recorded Within the past 12 months we worried whether our food would run out before we got money to buy more. Never True 04/04/2025 Within the past 12 months th e food we bought just didn't last and we didn't have money to get more. Never True 04/04/2025 Purpose - Life Answer Date Recorded I [...] encounter Miscellaneous Notes * Telephone Encounter - Mignon Dias CMA - 04/23/2025 10:07 AM EDT Pt's daughter is requesting that her mom, Cuca, go into a facility called [facility]. [facility] called requesting pt's HNP. I have a fax number. [phone]. Thank you. * Telephone Encounter - KAIDEN Werner - 04/23/2025 10:07 AM EDT Send last visit note documented in this encounter Plan of Treatment Upcoming Encounters Date Type Department Care Team (Late st Contact Info) Description 09/05/2025 1:00 PM EDT Office Visit [facility] [address] [place] [address] Jaylan Gray, TRIM TECHNICIAN-IRRIGATION FOREMAN [address], [facility] [address] [place] [address] documented as of this encounter Visit Diagnoses Not on filedocumented in this encounter Additional Health Concerns Assessment Noted Time PHQ-9 Depression Total Score: 0 04/04/20 25 9:00 AM EDT A Body Mass Index follow-up plan has been documented for the patient 04/04/2025 3:37 PM EDT documented as of this encounter Care Teams Hunting Sales Associate Relationship Specialty Start Date End Date Jaylan Gray, TRIM TECHNICIAN-IRRIGATION FOREMAN [address] [place] [address] PCP - General Nurse Practitioner 05/30/25 documented as of this encounter
--- OUTSIDE RECORDS SUMMARY | 2025-06-25 13:03 | XMS_ITS | Encounter Summary ---
Author Organization [facility] tem Address [facility] [place] [place]-[id number] [address] [place] [address] Care Team Providers Care Personal Service Workers Name Role Phone Jaylan Gray APRN-SUPERVISOR STEFFEN HOUSE Primary Care Provider + Encounter Details Date Type Department Care Team (Late st Contact Info) Description 03/18/2023 [facility]phone [facility] [address] [place] [address] Deja Mojica CMA Social History [...] How often do you attend chur or denominational services? More than 4 times per year [...] Answer Date Recorded Total Score 0 02/09/2023 [facility] of Occupat ional Health - [...] Telephone Encounter - Deja Mojica CMA - 03/18/2023 2:39 PM EDT Pt daughter called and stated patient is having trouble walking and was wondering if you could sendin an order for a wheelchair. I did tell her she might have to have an appointment for this. * Telephone Encounter - KAIDEN Werner - 03/18/2023 2:39 PM EDT I have been in discussion over the years in regards to wheel chair. Remind Renee about when she got the rolling walker 2 years ago. Medicare will only pay for one or the other every 5 years. Yes, face to face is required. I recommend (we have told both patient and daughter), please call Akilah Perez and [facility]. They typically have both available. * Telephone Encounter - Thais Pichardo MA - 03/18/2023 2:39 PM EDT She wants to do face to face for medicare coverage, but mom in ER right now, fell when at hospital getting MRI-but still having pain today. So renee will call to set up video appt ( 30 min) to do face to face documented in this encounter Plan of Treatment Upcoming Encounters Date Type Department Care Team (Late st Contact Info) Description 09/05/2025 1:00 PM EDT Office Visit [facility] [address] [place] [address] Jaylan Gray, SCREED OPERATOR-SUPERVISOR [employer]FFEN HOUSE [address], [address] [place] [address] documented as of this encounter [...] documented as of this encounter Care Teams Personal Service Workers Relationship Specialty Start Date End Date Jaylan Gray, SCREED OPERATOR-SUPERVISOR [employer]SE [address] [place] [address] PCP - General Nurse Practitioner 05/30/25 documented as of this encounter
--- OUTSIDE RECORDS SUMMARY | 2025-06-25 13:03 | XMS_ITS ---
[facility] Care Plan Created on: June 12, 2025 Cuca Dee : 1945 Sex: Female Author Organization [employer] Address [address] [place] [address] [address] [place] [address] Phone Health Concerns Health Status CKD 4 Health Concerns None
--- OUTSIDE RECORDS SUMMARY | 2025-06-25 13:03 | XMS_ITS | Encounter Summary ---
Author Organization [facility] tem Address [id number] [address] [place] [address] Care Team Providers Care Engine Assembler Name Role Phone Jaylan Gray APRN-PAYROLL TECHNICIAN Primary Care Provider + Reason for Referral * Consultation (Routine) - Closed Specialty Diagnoses / Procedures Referred By Contac t Referred To Contact Oncology Diagnoses 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 female breast, unspecified estrogen receptor status ([facility]-HCC) Michael Navarrete DO [address] [place] [address] Phone: tel: fax: Casimiro Leary MD [address] [place] [address] Phone: tel: fax: Referral ID Status Reason Start Date Expiration Date V isits Requested Visits Authorized [id number] Closed Specialty Services Required 03/09/2023 03/08/2024 4 4 Encounter Details Date Type Department Care Team (Late st Contact Info) Description 03/09/2023 Orders Only [facility] - [facility] Medicine [address] [place] [address] Michael Navarrete DO [address] [place] [address] 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 female breast, unspecified estrogen receptor status ([facility]-HCC) (Primary Dx) Social History Tobacco Use Types Packs/Day Years [...] often do you attend chur ch or jehovah's witness services? More than 4 times per year [...] Answer Date Recorded Total Score 0 02/09/2023 [facility] of Occupat ional Health - [...] Recorded Do you need help finding a [employer] ocal career center and/or a training program? 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
--- OUTSIDE RECORDS SUMMARY | 2025-06-25 13:03 | XMS_ITS | Encounter Summary ---
[facility] Organization [facility] Address [facility]-[id number] [address] [place] [address] Care Team Providers Care Varnish Maker Name Role Phone Jaylan Gray APRN-CLOCKSMITH Primary Care Provider + Encounter Details Date Type Department Care Team (Late st Contact Info) Description 03/16/2023 [facility] [address] [place] [address] Deja Mojica CMA Social History [...] How often do you attend chur or yarsanism services? More than 4 times per year 10/05/2022 Do you belong to any clubs o r organizations such as gnosticism groups, unions, fraternal or athletic groups, or [...] Answer Date Recorded Total Score 0 02/09/2023 [facility] of Occupat ional Health - [...] Recorded Do you need help finding a [facility] career center and/or a training [...] Telephone Encounter - Deja Mojica CMA - 03/16/2023 9:44 AM EDT Radiology called and wanted to know if you still wanted the Needle biopsy for patient? * Telephone Encounter - KAIDEN Werner - 03/16/2023 9:44 AM EDT No? She had a biopsy almost 10 days ago. documented in this encounter Plan of Treatment Upcoming Encounters Date Type Department Care Team (Late st Contact Info) Description 09/05/2025 1:00 PM EDT Office Visit [facility] - Family Medicine [address] [place] [address] Jaylan Gray, WATCH CRYSTAL GRINDER-CLOCKSMITH [address], [address] [address] documented as of this encounter Visit Diagnoses [...] documented as of this encounter Care Teams Varnish Maker Relationship Specialty Start Date End Date Jaylan Gray, WATCH CRYSTAL GRINDER-CLOCKSMITH [address] [place] [address] PCP - General Nurse Practitioner 05/30/25 documented as of this encounter
--- OUTSIDE RECORDS SUMMARY | 2025-06-25 13:03 | XMS_ITS | Encounter Summary ---
Author Organization [facility] tem Address [facility]-[id number] [address] [place] [address] Care Team Providers Care Experimental Rocket Sled Mechanic Name Role Phone Jaylan Gray APRN-FINAL EXPENSE AGENT Primary Care Provider + Encounter Details Date Type Department Care Team (Late st Contact Info) Description 03/27/2025 [facility] [address] [address] Alice Morrison CMA Social History Tobacco Use Types Packs/Day Years Used Date Smoking Tobacco: Never Smokeless Tobacco: Never Alcohol Use Standard Drinks/Week Comments No 0 (1 standard drink = 0.6 oz pur e alcohol) [facility] Utilities Answer Date Recorded In the past [...] often do you attend chur ch or lutheran services? More than 4 times per year 10/28/2024 Do you belong to any clubs o r organizations such as orthodoxy groups, unions, fraternal or athletic groups, or [...] PHQ-2 Answer Date Recorded Total Score 0 11/28/2024 [facility] of Occupat ional Health - Occupational [...] Recorded Do you need help finding a [facility] career center and/or a training program? No 10/28/2024 Hunger Screening Answer Date Recorded Within the past 12 months we worried whether our food would run out before we got money to buy more. Never True 03/24/2025 Within the past 12 months th e food we bought just didn't last and we didn't have money to get more. Never True 03/24/2025 Purpose - Life Answer Date Recorded I [...] encounter Miscellaneous Notes * Telephone Encounter - Alice Morrison CMA - 03/27/2025 9:56 AM EDT Pts daughter called wanting to know if you can write a prescription for a back brace ? L1 compound fracture is getting worse , she can't straighten up * Telephone Encounter - KAIDEN Werner - 03/27/2025 9:56 AM EDT I will address all her needs at her next visit. Need face to face for their requests. * Telephone Encounter - Alice Morrison CMA - 03/27/2025 9:56 AM EDT Called daughter she said that is fine documented in this encounter Plan of Treatment Upcoming Encounters Date Type Department Care Team (Late st Contact Info) Description 09/05/2025 1:00 PM EDT Office Visit [facility] - Family Medicine [address] [place] [phone] Jaylan Gray APRN-FINAL EXPENSE AGENT [address] [place] [address] documented as of this encounter Visit Diagnoses Not on filedocumented in this encounter Additional Health Concerns Assessment Noted Time PHQ-9 Depression Total Score: 0 11/28/19 2:41 PM EST A Body Mass Index follow-up plan has been documented for the patient 01/22/2025 4:58 PM EDT documented as of this encounter Care Teams Experimental Rocket Sled Mechanic Relationship Specialty Start Date End Date Jaylan Gray, SENIOR SEARCH MARKETING ANALYST-FINAL EXPENSE AGENT [address] [place] [address] PCP - General Nurse Practitioner 05/30/25 documented as of this encounter
--- OUTSIDE RECORDS SUMMARY | 2025-06-25 13:03 | XMS_ITS | Encounter Summary ---
Author Organization [facility] Address [id number] [address] [place] [address] Care Team Providers Care Court Security Officer Name Role Phone Jaylan Gray [facility]IT[facility] Primary Care Provider + Reason for Visit * Reason Comments Med Refill Encounter Details Date Type Department Care Team (Late st Contact Info) Description 03/08/2023 Refill [facility] [address] [place] [phone] Stephanie Ley, POLITICAL SCIENCE [facility] [address] LEFT PM 05/14/25 [place] [address] Controlled type 2 diabetes mellitus with diabetic nephropathy, without long-term current use of insulin ([facility]) Social History Tobacco Use Types Packs/Day Years [...] How often do you attend chur or evangelical services? More than 4 times per year 10/05/2022 Do you belong to any clubs o r organizations such as baptism groups, unions, fraternal or athletic groups, or [...] Answer Date Recorded Total Score 0 02/09/2023 [facility] - Occupational Stress Questionnaire Answer Date Recorded [...] Recorded Do you need help finding a l ocal career center and/or a training program? [...] Medicine - Family Medicine [address] [place] [phone] Jaylan Gray, POLITICAL SCIENCE PROFESSOR-STORE CONSULTANT [address], [facility] [address] [place] [address] documented as of this encounter Visit Diagnoses Diagnosis Controlled type 2 diabetes mellitus with diabetic nephropathy, without long-term current use of insulin ([facility]) documented in this encounter Additional Health Concerns [...] documented as of this encounter Care Teams Court Security Officer Relationship Specialty Start Date End Date Jaylan Gray, POLITICAL SCIENCE PROFESSOR-STORE CONSULTANT [address] [place] [address] PCP - General Nurse Practitioner 05/30/25 documented as of this encounter
--- OUTSIDE RECORDS SUMMARY | 2025-06-25 13:03 | XMS_ITS | Clinical Summary ---
Author Organization [facility] Address [address] [place] [address] Care Team Providers Care Adaptive Physical Education Teacher Name Role Phone Dami Martell MD Unavailable Allergies No known active allergies Medications aspirin 81 mg chewable tablet aspirin 81 mg tablet Take by oral route. Activ e pen needle, diabetic 32 gauge x 5/32 needle BD Morelia 2nd Gen Pen Needle 32 gauge x 5/32 USE DIRECTED FOUR TIMES DAILY Active FreeStyle Kartik reader (FreeStyle Kartik 14 Day [place]) misc FreeStyle Kartik 14 Day [place] Active blood sugar diagnostic (OneTouch Ultra Test) strip OneTouch Ultra Test strips 1 STRIP BY OTHER ROUTE 4 (FOUR) TIMES A DAY BEFORE MEALS AND NIGHTLY. Active blood sugar diagnostic (ONETOUCH ULTRA BLUE TEST STRIP [facility] OneTouch Ultra Blue Test Strip Active FreeStyle Kartik sensor system (FreeStyle Kartik 14 Day Sensor) kit FreeStyle Kartik 14 Day Sensor kit Active acetaminophen (Tylenol) 500 mg tablet Take 500 mg by mouth every 6 (six) hours if needed. Active amLODIPine (Norvasc) 5 mg tablet amlodipine 5 mg tablet TAKE 1 TABLET (5 MG TOTAL) BY MOUTH IN THE MORNING. 02/10/20 23 Active atorvastatin (Lipitor) 80 mg tablet Take 80 mg by mouth in the morning. 09/29/20 22 Active atorvastatin (Lipitor) 20 mg tablet atorvastatin 20 mg tablet TAKE 1 TABLET BY MOUTH EVERY DAY FOR 30 DAYS Act anisa cefuroxime (Ceftin) 250 mg tablet cefuroxime axetil 250 mg tablet Active cholecalcifero l, vitamin D3, 50 mcg (2,000 unit) capsule cholecalciferol (vitamin D3) 50 mcg (2,000 unit) capsule TAKE 1 CAPSULE BY MOUTH EVERY DAY 04/22/20 22 Active clopidogrel (Plavix) 75 mg tablet Take 75 mg by mouth in the morning. 09/29/20 Active hydroCHLOROthi azide (HYDRODiuril) 25 mg tablet hydrochlorothiazide 25 mg tablet TAKE 1 TABLET BY MOUTH EVERY DAY Active furosemide (Lasix) 20 mg tablet Take 20 mg by mouth in the morning. 10/06/20 22 Active ferrous sulfate 325 (65 Fe) MG EC tablet Take 325 mg by mouth. Active insulin detemir (Levemir FlexPen) 100 unit/mL (3 mL) pen Levemir FlexTouch U-100 Insulin 100 unit/mL (3 mL) subcutaneous pen INJECT 25 UNITS AT BEDTIME 03/09/20 23 Active insulin lispro (HumaLOG) 100 unit/mL injection Humalog KwikPen (U-100) Insulin 100 unit/mL subcutaneous INJECT 4-5-6 UNITS TO MEAL SIZE PLUS ISS#2 ( EXPEXT DAILY DOSE 20 UNITS) Active lancets 33 gauge amg [facility] USE FOUR TIMES A DAY. ICD 10 E11.29 08/31/20 22 Active miscellaneous medical [facility] 01/01/20 21 Active melatonin 10 mg capsule TAKE 2 CAPSULES BY MOUTH EVERY DAY NIGHTLY 03/16/20 22 Active metoprolol tartrate (Lopressor) 50 mg tablet Take 50 mg by mouth. Active mupirocin (Bactroban) 2 % ointment mupirocin 2 % topical ointment APPLY TO AFFECTED AREA IN THE MORNING AND BEFORE BEDTIME 03/11/20 22 Active oxybutynin (Ditropan) 5 mg tablet Take 5 mg by mouth. Active pantoprazole (ProtoNix) 40 mg packet Take 40 mg by mouth. Active sertraline (Zoloft) 100 mg tablet Take 1.5 tablets by mouth in the morning. Act anisa SITagliptin phosphate (Januvia) 50 mg tablet Januvia 50 mg tablet TAKE 1 TABLET BY MOUTH EVERY DAY 02/10/20 23 Active letrozole (Femara) 2.5 mg chemo tablet Take by mouth in the morning Take with or without food. Active amoxicillin (Amoxil) 500 mg tablet TAKE 4 TABLETS BY MOUTH ONE HOUR PRIOR TO PROCEDURE. 07/15/20 23 Active Dexcom G6 Transmitter device CHANGE EVRY 90 DAYS. 0 23 Active Dexcom G6 Propagator misc See administration instructions. 05/06/20 23 Active traMADol (Ultram) 50 mg tablet PLEASE SEE ATTACHED FOR DETAILED DIRECTIONS 03/25/20 23 Active gabapentin (Neurontin) 300 mg capsule TAKE 1 CAPSULE (300 MG TOTAL) BY MOUTH IN THE MORNING AND BEFORE BEDTIME 03/05/20 24 Active traZODone (Desyrel) 100 mg tablet TAKE 1 TABLET BY MOUTH EVERY DAY AT NIGHT 03/02/20 24 Active Dexcom G7 Sensor device USE AND CHANGE SENSOR EVERY 10 DAYS 01/17/20 25 Active insulin aspart (NovoLOG) 100 unit/mL (3 mL) injection pen 12/29/19 25 Active Lantus Solostar U-100 Insulin 100 unit/mL (3 mL) injection pen Inject under the skin. 11/16 02/01 25 Active lisinopril 5 mg tablet Take 5 mg by mouth in the morning. Active magnesium oxide (Mag-Ox) 400 mg (241.3 mg magnesium) tablet Take 400 mg by mouth in the morning. 02/25/20 25 Active nystatin (Mycostatin) 100,000 unit/gram powder Apply 1 Application topically 4 times a day. 09/06/20 24 Active mirtazapine (Remeron) 7.5 mg tablet 04/22/20 25 Active doxycycline (Vibra-Tabs) 100 mg tablet Take 100 mg by mouth two times daily. Take with a full glass of water and do not lie down for at least 30 minutes after. Active Active Problems Problem Noted Date Diagnosed Date Atrial fibrillation with RVR 01/22/2025 Altered mental status 08/23/2024 Metastasis to bone 03/09/2024 03/16/2024 S/p TAVR (transcatheter aort ic valve replacement), bioprosthetic 08/26/2023 03/16/2024 Atypical squamous cell jurado es of undetermined significance (ASCUS) on cervical cytology with positive high risk human papilloma virus (HPV) 03/30/2023 Closed nondisplaced fracture of left pubis with routine healing 03/28/2023 03/16/2024 Malignant neoplasm of upper- outer quadrant of right breast in female, estrogen receptor positive 03/18/2023 RAIN (acute kidney injury) 01/13/2023 Anemia 01/13/2023 CKD (chronic kidney disease) 01/13/2023 Family history of coronary arteriosclerosis 11/2022 History of blood transfusion 01/13/2023 Tremors of nervous system 01/13/2023 Type 2 diabetes mellitus wit h diabetic neuropathy, with long-term current use of insulin 01/13/2023 S/P angioplasty with stent 12/07/2022 Acute on chronic diastolic heart failure 022 Elevated d-dimer 10/05/2022 History of non-ST elevation myocardial infarctio n (NSTEMI) 10/05/2022 History of pneumonia 10/05/2022 Severe aortic valve stenosis 10/05/2022 SOB (shortness of breath) 10/05/2022 Stage 3b chronic kidney disease 10/05/2022 NSTEMI (non-ST elevated myocardial infarction) 1 11/29/2021 Community acquired bacterial pneumonia Spinal stenosis of lumbar re gion with neurogenic claudication 07/15/2022 Overview (03/22/2023): Added automatically from request for surgery [id number] Acute cystitis without hematuria 05/26/2022 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 10/14/2021 Other abnormalities of gait and mobility 021 Chronic obstructive pulmonary disease 03/20/2021 Edema of lower extremity 07/10/2020 Left bundle branch block 03/26/2020 Mixed diabetic hyperlipidemi a associated with type 2 diabetes mellitus 12/11/2019 GI bleed 10/17/2019 Asthma 09/21/2019 Obstructive sleep apnea syndrome 09/21/2019 Cerebral ventriculomegaly 09/21/2019 Renal failure syndrome 09/21/2019 Confusional state 09/21/2019 Dizziness 09/21/2019 Essential (primary) hypertension 09/21/2019 Gastroesophageal reflux disease 09/21/2019 Hyperlipidemia 09/21/2019 Nausea 09/21/2019 Murmur, cardiac 09/21/2019 Obesity 09/21/2019 Diabetes mellitus 09/21/2019 Type 1 diabetes mellitus 09/21/2019 Urinary tract infectious disease 09/21/2019 03/16/2024 Wears dentures 09/21/2019 03/16/2024 Normal pressure hydrocephalus 09/05/2019 Moderate episode of recurrent major depressive d isorder 07/17/2019 Lumbar spondylosis 06/14/2019 Primary osteoarthritis of both knees 10/26/2018 Disc displacement, lumbar 06/27/2018 Overview (03/22/2023): Added automatically from request for surgery [id number] Lumbar back pain with radicu lopathy affecting left lower extremity 05/30/2018 Overview (03/22/2023): Exacerbation, Chronic Anemia, chronic disease 09/07/2017 GERD without esophagitis 05/25/2017 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 mellitus 05/25 PVD (peripheral vascular disease) 05/25/2017 Encounters Date Type Department Care Team Description 06/04/2025 - 06/04/2025 11:59 PM EDT Hospital Encounter [facility] Radiology External Films [address] [place] [place] [phone] Discharge Disposition: Home or Self Care () 05/22/2025 10:00 AM EDT Follow-Up [facility] Surgery Clinic [address] [place] [phone] Vale Contreras CNP NPH (normal pressure hydrocephalus) (CMS/HCC) (Primary Dx); Memory impairment; Impaired gait; Compression fracture of L1 vertebra with routine healing, subsequent encounter; Compression fracture of thoracic vertebra with routine healing, unspecified thoracic vertebral level, subsequent encounter 05/22/2025 9:01 AM EDT - 05/22/2025 11:59 PM EDT Hospital Encounter [facility] X-Ray Imaging [address] [place] [phone] NPH (normal pressure hydrocephalus) (CMS/HCC) Discharge Disposition: Home or Self Care () 05/22/2025 8:14 AM EDT - 05/22/2025 9:00 AM EDT Hospital Encounter [facility] CT Imaging [address] [place] [phone] NPH (normal pressure hydrocephalus) ([facility]) Discharge Disposition: Home or Self Care () 04/05/2025 11:40 AM EDT [facility]medicine [facility] [address], [address] [place] [address] Amina Munguia CNP MRSA bacteremia (Primary Dx); Skin abrasion; S/p TAVR (transcatheter aortic valve replacement), bioprosthetic; S/P CARD TAPE CONVERTER OPERATOR shunt; Stage 3b chronic kidney disease ([facility]) 04/04/2025 Telephone [facility] [address], [address] [place] [address] Irene Perez MA 03/28/2025 Telephone [facility] [address], [address] [place] [phone] Irene Perez MA 03/28/2025 Telephone [facility] [address], [address] [place] [address] Irene Perez MA from Last 3 Months Immunizations Immunization Administration Dates Next Due Influenza, High Dose Seasona l, Preservative Free 08/27/2021 Influenza, High-dose Seasona l, Quadrivalent, Preservative Free 08/30/2020 Influenza, Seasonal, Quadriv alent, Adjuvanted 08/10/2023,08/06/2022 Influenza, injectable, quadrivalent 09/14/2019 Influenza, injectable, quadr ivalent, preservative free 11/25/2020,09/11/2019,08/31/2018,09/07 Pneumococcal Conjugate PCV 13 05/28/2021 Pneumococcal Polysaccharide PPV23 07/10/2015 Unspecified Sars-Cov-2 Vaccination 02/04/2021, Family History Medical History Relation Name Comments Coronary artery disease Father Ramesh Dee Hypertension Father Ramesh Dee Diabetes Mother Kacey Parsonsabby Relation Name Status Comments Father Ramesh Dee Mother Kacey Parsonsabby Social History Tobacco Use Types Packs/Day Years Used Date Smoking Tobacco: Never Smokeless Tobacco: Never Tobacco Cessation:Counseling Given: Not Answered Alcohol Use Standard Drinks/Week Comments Never 0 (1 standard drink = 0.6 oz pur e alcohol) Humiliation, Afraid, Rape, and Kick questionnair e Answer Date Recorded Within the last year, have y ou been afraid of your partner or ex-partner? No 05/23/2024 Emotionally Abused Not on file 05/23/2024 Physically Abused Not on file 05/23/2024 Sexually Abused Not on file 05/23/2024 PHQ-2 Answer Date Recorded Patient Health Questionnaire-2 Score 0 05/23/2024 Comments Unknown Sex and Gender Information Value Date Recorded Sex Assigned at Not on file Legal Sex Female 9:07 PM EDT Gender Identity Not on file Sexual Orientation Not on file Last Filed Vital Signs Vital Sign Reading Time Taken Comments Blood Pressure 116/72 05/22/2025 9:32 AM EDT Pulse 68 05/22/2025 9:32 AM EDT Temperature 36.6 C (97.8 F) 05/22/2025 9:32 AM EDT Respiratory Rate - - Oxygen Saturation 96% 05/22/2025 9:32 AM EDT Inhaled Oxygen Concentration - - Weight 85.7 kg (189 lb) 05/22/2025 9:32 AM EDT Height 165.1 cm (5' 5 ) 05/22/2025 9:32 AM EDT Body Mass Index 31.45 05/22/2025 9:32 AM EDT Plan of Treatment Upcoming Encounters Date Type Department Care Team (Late st Contact Info) Description 07/31/2025 2:45 PM EDT Follow-Up [facility] Surgery Clinic [address] [place] [address] Vale Contreras, [place] [address] [place] [address] Health Maintenance Due Date Last Done Comments Diabetes: Hemoglobin A1C 1945 Medicare Annual Wellness (AWV) 1945 Diabetes: Retinopathy Screening 1956 Depression Screening 1958 Adult Tetanus 1968 Zoster Vaccines (1 of 2) 1996 Fall Risk Screening 2011 COVID-19 Vaccine ( season) 2024 02/04/2021, 02/04/2021, 02/04/2021, Additional history exists Influenza Vaccine (#1) 2025 , 08/10/2023, 08/06/2022, Additional history exists Diabetes: Urine Protein Screening 02/03/2026 02/03/2025 Pneumococcal Vaccine: 50+ Years Completed 05/28/2021, 05/16/2020, 07/10/2015, Additional history exists HIB Vaccines Aged Out No longer eligi ble based on patient's age to complete this topic HPV Vaccines Aged Out No longer eligi ble based on patient's age to complete this topic IPV Vaccines Aged Out No longer eligi ble based on patient's age to complete this topic Meningococcal B Vaccine Aged Out No l onger eligible based on patient's age to complete this topic Meningococcal Vaccine Aged Out No al lourdes eligible based on patient's age to complete this topic Rotavirus Vaccines Aged Out No longer eligible based on patient's age to complete this topic Procedures Procedure Name Priority Date/Time Associated Diagnosis Comments MR TRANSFER OF OUTSIDE FILMS Routine 06/04/2025 12:00 AM EDT XR CARD TAPE CONVERTER OPERATOR SHUNT SERIES Routine 05/22/2025 9: 18 AM EDT NPH (normal pressure hydrocephalus) (CMS/HCC) CT HEAD WO IV CONTRAST Routine 05/22/2025 8:25 AM EDT NPH (normal pressure hydrocephalus) (CMS/HCC) from Last 3 Months Results * MR transfer of outside films (06/04/2025 12:00 AM EDT) Narrative IMAGING - 06/04/2025 12:28 PM EDT This order has been auto-finalized and does not contain a result. us Vale Contreras CNP IMG MRI PROCEDURES Final Resul t IMAGING * Xr CARD TAPE CONVERTER OPERATOR Shunt Series (05/22/2025 9:18 AM EDT) Anatomical Region Laterality Modality Computed Radiogr aphy 05/22/2025 10:4 8 AM EDT Impressions 05/22/2025 10:52 AM EDT Impression: Ventriculostomy catheter tubing without evidence of acute complication, though evaluation limited due to looped configuration overlying the left hemiabdomen. Electronically signed: Doug Funes. Narrative 05/22/2025 10:52 AM EDT XR CARD TAPE CONVERTER OPERATOR SHUNT SERIES: 05/22/2025 PROVIDED HISTORY: * 79 years old Female * one year follow up kinking or discontinuity of shunt tubing, needs CT brain same day. COMPARISON: The CARD TAPE CONVERTER OPERATOR shunt series 04/03/2024 TECHNIQUE: A total of five views of [...] set at approximately 130-140, similar to prior. Procedure Note Doug Funes MD - 05/22/2025 XR CARD TAPE CONVERTER OPERATOR SHUNT SERIES: 05/22/2025 PROVIDED HISTORY: *79 years old Female *one year follow up kinking or discontinuity of shunt tubing, needs CT brain same day. COMPARISON: The CARD TAPE CONVERTER OPERATOR shunt series 04/03/2024 TECHNIQUE: A total of five views of the head, chest, abdomen and pelviswere obtained. Findings: Right frontal approach ventriculostomy catheter tubing terminating inthe midline, with catheter tubing coursing along the right neck, right upper hemithorax, crossing the midline to extend along the left parasternalborder, within within the left hemiabdomen to terminate in the upper pelvis. Noevidence of transection of kinking, with limited evaluation region of looping. Prosthetic aortic valve. Codman Hakim programmable ventriculostomy set at approximately 130-140,similar to prior. IMPRESSION: Impression: Ventriculostomy catheter tubing without evidence of acute complication,though evaluation limited due to looped configuration overlying the lefthemiabdomen. Electronically signed: Doug Funes. Vale Contreras INDUSTRIAL ENGINEERING DIRECTOR IMG XR PROCEDURES Final Result * CT head wo IV contrast (05/22/2025 8:25 AM EDT) Anatomical Region Laterality Modality Head, Neck Computed Tomogra phy 05/22/2025 9:34 AM EDT Impressions 05/22/2025 11:21 AM EDT * Similar appearance and placement of right frontal shunt placement. * Ventriculomegaly which correlates with patient's known normal pressure hydrocephalus. No significant interval change compared to prior examination. * No evidence of acute intracranial abnormality. Approved by:Jason Sanchez05/22/2025 9:45 AM. I, Srinivas Ferrara,have reviewed the image(s) and agree with the findings in this report. Electronically signed: Srinivas Ferrara. Narrative 05/22/2025 11:[address] HEAD WO IV CONTRAST HISTORY: Normal [...] in appearance compared to 03/16/2024. No midline shift, mass effect, acute intracranial hemorrhage, or evidence of acute large vessel ischemia/infarct. Chronic encephalomalacia of the right frontal lobe which is chronic and most likely due to shunt placement. Normal attenuation of the cerebral parenchyma. Brainstem and cerebellum are unremarkable. Visualized intraorbital contents and the infratemporal soft tissues show no acute abnormality. The visualized paranasal sinuses and mastoid air cells are clear. Osseous structures in skull base and calvarium show no acute abnormality. Procedure Note Srinivas Ferrara MD - 05/22/2025 CT HEAD WO IV CONTRAST HISTORY: Normal pressure hydrocephalus COMPARISON: CT head 03/16/2024 TECHNIQUE: CT brain without intravenous contrast. Automated exposurecontrol was utilized. All CT scans at this facility use dose modulation,iterative reconstruction, and/or weight based dosing when appropriate to reduceradiation dose to as low as reasonably achievable. FINDINGS: Redemonstrated right frontal shunt with tip terminating near theanterior portion of the septum pellucidum. The ventricles are enlarged bilaterallybut are stable in appearance compared to 03/16/2024. No midline shift, mass effect, acute intracranial hemorrhage, or evidenceof acute large vessel ischemia/infarct. Chronic encephalomalacia of theright frontal lobe which is chronic and most likely due to shunt placement. Normal attenuation of the cerebral parenchyma. Brainstem and cerebellum are unremarkable. Visualized intraorbital contents and the infratemporal soft tissues showno acute abnormality. The visualized paranasal sinuses and mastoid air cells are clear. Osseous structures in skull base and calvarium show no acuteabnormality. IMPRESSION: *Similar appearance and placement of right frontal shunt placement. *Ventriculomegaly which correlates with patient's known normal pressure hydrocephalus. No significant interval change compared to priorexamination. *No evidence of acute intracranial abnormality. Approved by:Jason Sanchez05/22/2025 9:45 AM. ISrinivas,have reviewed the image(s) and agree with the findings inthis report. Electronically signed: Srinivas Ferrara. Vale Contreras CNP [facility] CT PROCEDURES Final Result from Last 3 Months Insurance [place] Care Teams Adaptive Physical Education Teacher Relationship Specialty Start Date End Date Dami Martell MD Consulting Physician Neurology 03/20/24
--- OUTSIDE RECORDS SUMMARY | 2025-06-25 13:03 | XMS_ITS | Encounter Summary ---
Author Organization [employer] tem Address [id number] [address] [place] [address] Care Team Providers Care Director Of Enterprise Applications Name Role Phone Jaylan Gray APRN-EPIC APPLICATION COORDINATOR Primary Care Provider + Reason for Referral * Diagnostic Imaging (Routine) - Pending Review Specialty Diagnoses / Procedures Referred By Contac t Referred To Contact Radiology Diagnoses 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 breast in female, estrogen receptor positive (CMS-HCC) 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 female breast, unspecified estrogen receptor status (CMS-HCC) Metastasis to bone (CMS-HCC) Procedures PET CT skull to thigh Casimiro Leary MD [facility] [address] [place] [id number] Phone: tel: fax: Referral ID Status Reason Start Date Expiration Date V isits Requested Visits Authorized [id number] Pending Review 01/25/2025 01/25/2026 1 1 Encounter Details Date Type Department Care Team (Late st Contact Info) Description 01/25/2025 Orders Only Stephany Carnes [facility] - Medical Oncology [address] [place] [address] Mary Mohan, GABBY 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 breast in female, estrogen receptor positive (CMS-HCC) (Primary Dx); 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 female breast, unspecified estrogen receptor status (CMS-HCC); Metastasis to bone (CMS-HCC) Social History Tobacco Use Types Packs/Day Years Used Date Smoking Tobacco: Never Smokeless Tobacco: Never Alcohol Use Standard Drinks/Week Comments No 0 (1 standard drink = 0.6 oz pur e alcohol) [facility] Utilities Answer Date Recorded In the past 12 months has th e electric, gas, oil, or water company threatened to shut off services in your home? No 11/09/2024 Social Connection and Isolat ion Panel [NHANES] Answer Date Recorded In a typical week, how many times do you talk on the phone with family, friends, or neighbors? Never 10/28/2024 How often do you get togethe r with friends or relatives? More than three times a week 10/28/2024 How often do you attend chur ch or buddhist services? More than 4 times per year 10/28/2024 Do you belong to any clubs o r organizations such as cheondoism groups, unions, fraternal or athletic groups, or [...] you have a drink containing alcohol? Never 10/28/2024 Q2: How many drinks containi ng alcohol do you have on a typical day when you are drinking? Patient does not drink Q3: How often do you have si x or more drinks on one occasion? Never 10/28/2024 Overall Financial Resource Strain (CARDIA) Answe r Date Recorded How hard is it for you to pa y for the very basics like food, housing, medical care, and heating? Somewhat hard 10/28/2024 PHQ-2 Answer Date Recorded Total Score 0 11/28/2024 [facility] [place] of Occupat ional Health - Occupational Stress [...] medical appointments or from getting medications? No 10/16 In the past 12 months, has l ack of transportation kept you from meetings, work, or from getting things needed for daily living? No 11/09/2024 Housing Instability Answer Date Recorde d Are you worried or concerned that in the next two months you may not have stable housing that you own, rent or stay in as a part of a household? No 11/09/2024 Childcare Answer Date Recorded Do problems getting child ca re make it difficult for you to work or study? No 10/28/2024 Employment Answer Date Recorded Do you need help finding a [facility] career center and/or a training program? No 10/28/2024 Hunger Screening Answer Date Recorded Within the past 12 months we worried whether our food would run out before we got money to buy more. Never True 01/11/2025 Within the past 12 months th e food we bought just didn't last and we didn't have money to get more. Never True 01/11/2025 Purpose - Life Answer Date Recorded I [...] Medicine - Family Medicine [address] [place] [address] Jaylan Gray, AUTOMATIC VULCANIZING LEAD OPERATOR-EPIC APPLICATION COORDINATOR [address], [address] [place] [address] Scheduled Orders Name Type Priority Associated Diagnoses Orde r Schedule PET CT skull to thigh Imaging Routine 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 breast in female, estrogen receptor positive (CMS-HCC) 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 female breast, unspecified estrogen receptor status (CMS-HCC) Metastasis to bone (CMS-HCC) Expected: 01/25/2025, Expires: 01/25/2026 CBC with auto diff Lab Routine 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 breast in female, estrogen receptor positive (CMS-HCC) 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 female breast, unspecified estrogen receptor status (CMS-HCC) Metastasis to bone (CMS-HCC) 1 Occurrences starting 01/25/2025 until 01/25/2026 Comprehensive metabolic panel Lab Routine 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 breast in female, estrogen receptor positive (CMS-HCC) 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 female breast, unspecified estrogen receptor status (CMS-HCC) Metastasis to bone (CMS-HCC) 1 Occurrences starting 01/25/2025 until 01/25/2026 Cancer antigen 15-3 Lab Routine 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 breast in female, estrogen receptor positive (CMS-HCC) 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 female breast, unspecified estrogen receptor status (CMS-HCC) Metastasis to bone (CMS-HCC) 1 Occurrences starting 01/25/2025 until 01/25/2026 Cancer antigen 27-29 Lab Routine 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 breast in female, estrogen receptor positive (CMS-HCC) 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 female breast, unspecified estrogen receptor status (CMS-HCC) Metastasis to bone (CMS-HCC) 1 Occurrences starting 01/25/2025 until 01/25/2026 documented as of this encounter Visit Diagnoses Diagnosis 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 female breast, unspecified estrogen receptor status (CMS-HCC) Metastasis to bone (CMS-HCC) Secondary malignant neoplasm of bone and bone marrow documented in this encounter Additional Health Concerns Infection Onset Date Last Indicated Resolved Time Respiratory Rule-Out 02/12/2025 02/12/2025 025 1:47 PM EDT Assessment Noted Time PHQ-9 Depression Total Score: 0 11/28/19 25 2:41 PM EST A Body Mass Index follow-up plan has been documented for the patient 01/22/2025 4:58 PM EDT documented as of this encounter Care Teams Director Of Enterprise Applications Relationship Specialty Start Date End Date Jaylan Gray, AUTOMATIC VULCANIZING LEAD OPERATOR-EPIC APPLICATION COORDINATOR [address] [place] [address] PCP - General Nurse Practitioner 05/30/25 documented as of this encounter
--- OUTSIDE RECORDS SUMMARY | 2025-06-25 13:03 | XMS_ITS | Encounter Summary ---
Author Organization [employer] tem Address [id number] [address] [place] [address] Care Team Providers Care Planning Assistant Name Role Phone Jaylan Gray APRN-SCLEROSCOPE TESTER Primary Care Provider + Reason for Visit * Reason Onset Date Comments Transition Of Care 03/21/2025 Encounter Details Date Type Department Care Team (Late st Contact Info) Description 03/21/2025 [facility]phone [facility] - Family Medicine [address] [place] [id number] Radha Pritchard, ripsaw grader Of Care Social History Tobacco Use Types Packs/Day Years Used Date Smoking Tobacco: Never Smokeless Tobacco: Never Alcohol Use Standard Drinks/Week Comments No 0 (1 standard drink = 0.6 oz pur e alcohol) [facility] Utilities Answer Date Recorded In the past 12 months has [employer] electric, gas, oil, or water company threatened [...] often do you attend chur ch or worship services? More than 4 times per year 10/28/2024 Do you belong to any clubs o r organizations such as roman catholic groups, unions, fraternal or athletic groups, or [...] Answer Date Recorded Total Score 0 11/28/2024 [facility] of Occupat ional [...] Miscellaneous Notes * Telephone Encounter - Radha Pritchard RN - 03/21/2025 10:26 AM EDT Transition of Care (*required) *Additional Questions/Concerns Requiring PCP Follow-Up: Patient daughter Ileana question if PCP could write a script for a lift chair for patient. States It's getting harder and harder for patientto get up from her regular chair Please reach out to Ileana. Ileana states she will call and schedule an f/u appt for patient when she is near patient calendar . For TCM, patient would need an appt on/before 03/30/25, unless otherwise directed by PCP. This documentation is being used for Transition of Care purposes: Yes Goal: Patient will demonstrate a safe transition from Hospital to Home Diagnosis on Discharge: Hypoxia GERD without esophagitis 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 mellitus Anemia, chronic disease Obstructive sleep apnea syndrome Coronary artery disease involving mcgrath coronary artery of mcgrath heart without angina pectoris Essential (primary) hypertension Stage 3b chronic kidney disease 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 breast in female, estrogen receptor positive S/p TAVR (transcatheter aortic valve replacement), 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 Type 2 diabetes mellitus with diabetic chronic kidney disease Atrial fibrillation with RVR Discharge Specialty: Infectious Disease, Nephrology, and Neurology *Name of Discharging Facility: [facility] Date of Facility Discharge: 03/16/2025 - 03/19/2025 Date of Interactive Contact and Name of Director Of Design: 5.7 at 10.26 CN spoke to patient daughter Ileana (HIPAA Verified) In regards to patient care, health and medications *Medication Review Completed: No Patient daughter declined meds review. States the infusion nurse will review her meds tomorrow. No changes made to the patient's medications upon discharge.. Medication Reconciliation Questions/Concerns: None at this time. *Follow Up Appointments with Providers: Primary: Stephanie Ley APRN-BARTOLO TBD Specialty: Medical Oncology Infusion 5.8 at 8:30 Specialty: Dr. Quiles (Nephrology) Specialty: Infectious disease Specialty: Navi Ley CNP 5.27 at 3:20 Specialty: Dr. Jazmine Leary (Oncology) 6.19 at 2:15 Review of Pending Lab/Diagnostic Tests and Plan for Completion: No pending lab/diagnostic test noted in the discharge summary. Assessment and Support of Treatment Regimen Adherence and Medication Management: CN spoke to patient daughter Ileana. Per Ileana, patient is feeling great. She looks much more comfortable and sounds like herself. Denied patient c/o any discomfort. IV midline to rt arm patent and denied any s/s of infection. Informed patient goes to [facility] for her antibiotic infusion. Says patient is eating and drinking without any complications. Instruct on a heart healthy diet and increase fluids. Says her BS was WNL limit. Long-term effects of controlled DM on the body discussed with Ileana. Informed she checks patient vitals occasionally. Instruct on a daily log. States patient had some transportation issues but that is resolved . Ileana reports no issues with acquiring food, medications, or daily needs. Ileana assist with medication set up in a weekly pill box and reminds patient to take her medications daily. Education Provided by ACN to Support Self-Management, Independent Living and ADLs: Instruct Ileana to call the office for questions, concerns, new worsening or recurring s/s. Call [email or web address] for urgent symptoms such as CP, SOB or symptoms of CVA. Education given on DM, HTN, meds, diet, infection prevention, safety and fall precautions, follow-up appt and d/c instruction reviewed. Communication with Home Health Agencies and Other Services Utilized/Needed by the Patient: Patient discharge home self-care and support of family. * Telephone Encounter - Krishna Escoto CMA - 03/21/2025 10:26 AM EDT scheduled documented in this encounter Plan of Treatment Upcoming Encounters Date Type Department Care Team (Late st Contact Info) Description 09/05/2025 1:00 PM EDT Office Visit [facility] Internal Medicine - Family Medicine [address] [place] [address] Jaylan Gray, WATCH SUPERVISOR-SCLEROSCOPE TESTER [address], [facility] [address] [place] [address] documented as of this encounter Visit Diagnoses Not on filedocumented in this encounter Additional Health Concerns Assessment Noted Time PHQ-9 Depression Total Score: 0 11/28/19 25 2:41 PM EST A Body Mass Index follow-up plan has been documented for the patient 01/22/2025 4:58 PM EDT documented as of this encounter Care Teams Planning Assistant Relationship Specialty Start Date End Date Jaylan Gray, WATCH SUPERVISOR-SCLEROSCOPE TESTER [address] [place] [address] PCP - General Nurse Practitioner 05/30/25 documented as of this encounter
--- OUTSIDE RECORDS SUMMARY | 2025-06-25 13:03 | XMS_ITS ---
Author Organization [employer] [facility] tem Address [id number] [address] [place] [address] Care Team Providers Care Experimental Box Tester Name Role Phone Jaylan Gray APRN-WOOD STRIP BLOCK FLOOR INSTALLER Primary Care Provider + Active Problems Problem Noted Date Diagnosed Date UTI (urinary tract infection) 06/11/2025 Closed fracture of right hip 05/14/2025 Nondisplaced fracture of les ser trochanter of right femur, initial encounter for closed fracture 05/14/2025 Acute respiratory failure with hypoxia Hypoxia 03/16/2025 Sepsis 02/14/2025 Atrial fibrillation with RVR 01/22/2025 Elevated troponin 11/09/2024 Acute cystitis 10/27/2024 Altered mental status, unspe cified altered mental status type 08/23/2024 Type 2 diabetes mellitus with hypoglycemia witho ut coma 08/23/2024 COVID-19 virus infection 08/12/2024 Weakness 06/14/2024 Lactic acidosis 06/14/2024 Iron deficiency anemia 06/14/2024 Hypomagnesemia 06/14/2024 Staphylococcus aureus bacteremia with sepsis Generalized muscle weakness 04/12/2024 Limitation of activities due to disability 04/12 Need for assistance with personal care Difficulty in walking, not elsewhere classified 04/11/2024 Insomnia, unspecified 04/11/2024 MRSA (methicillin resistant Staphylococcus aureu s) 04/11/2024 Obesity, unspecified 04/11/2024 Unspecified osteoarthritis, unspecified site Unspecified Escherichia coli (E. coli) as the cause of diseases classified elsewhere 04/11/2024 Metastasis to bone 03/09/2024 S/p TAVR (transcatheter aort ic valve replacement), bioprosthetic 08/26/2023 Nonrheumatic aortic valve stenosis 08/17/2023 Hypertensive heart and chron ic kidney disease with heart failure and stage 1 through stage 4 chronic kidney disease, or unspecified chronic kidney disease 04/02/2023 Depression, unspecified 03/30/2023 Primary generalized (osteo)arthritis 03/30/2023 Type 2 diabetes mellitus wit h diabetic chronic kidney disease 03/30/2023 Closed nondisplaced fracture of left pubis with routine healing 03/28/2023 Acute kidney injury superimposed on CKD 03/28/20 Malignant neoplasm of upper- outer quadrant of right breast in female, estrogen receptor positive 03/18/2023 Tremors of nervous system 01/13/20232022 Acute on chronic diastolic congestive heart fail ure 10/05/2022 History of non-ST elevation myocardial infarctio n (NSTEMI) 10/05/2022 History of pneumonia 10/05/2022 Elevated d-dimer 10/05/2022 Stage 3b chronic kidney disease 10/05/2022 Spinal stenosis of lumbar re gion with neurogenic claudication 07/15/2022 Overview (07/15/2022): Added automatically from request for surgery [id number] Acute cystitis without hematuria 05/26/2022 Coronary artery disease invo lving pilot station coronary artery of pilot station heart without angina pectoris 10/14/2021 Essential (primary) hypertension 10/14/2021 Other abnormalities of gait and mobility 021 Edema of lower extremity 07/10/2020 Constipation, unspecified 05/10/2020 Unspecified asthma, uncomplicated 05/10/2020 Murmur, cardiac 03/26/2020 Left bundle branch block 03/26/2020 Mixed diabetic hyperlipidemi a associated with type 2 diabetes mellitus 12/11/2019 GI bleed 10/17/2019 Obstructive sleep apnea syndrome 09/21/2019 Cerebral ventriculomegaly 09/21/2019 Wears dentures 09/21/2019 Urinary tract infectious disease 09/21/2019 Normal pressure hydrocephalus 09/05/2019 Moderate episode of recurrent major depressive d isorder 07/17/2019 Lumbar spondylosis 06/14/2019 Primary osteoarthritis of both knees 10/26/2018 Disc displacement, lumbar 06/27/2018 Overview (06/27/2018): Added automatically from request for surgery [id number] Lumbar back pain with radicu lopathy affecting left lower extremity 05/30/2018 Overview (05/30/2018): Exacerbation, Chronic Anemia, chronic disease 09/07/2017 GERD without esophagitis 05/25/2017 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 mellitus 05/25 PVD (peripheral vascular disease) 05/25/2017 Current Treatment and Therapy Plans No current plan information found. Other Current Plans Adult oncology/infusion center flush orders* Plan Start Date:03/12/2025 Plan Provider:Delgado Leahy MD Linked Problems MRSA (methicillin resistant Staphylococcus aureus) Treatment Medications No medications scheduled. DAPTOmycin (CUBICIN) IV* Plan Start Date:03/12/2025 Plan Provider:Delgado Leahy MD Linked Problems Staphylococcus aureus bacter emia with sepsis ([facility])MRSA (methicillin resistant Staphylococcus aureus) Treatment Medications No medications scheduled. Past Treatment and Therapy Plans No past plan information found. Lifetime Dose Tracking * Chemical Lifetime Dose Automatic Entry Manual Entr y Fluoroscopy 181.2 mGy 0 mGy 181.2 mGy Resolved Problems Problem Noted Date Diagnosed Date Resolved Date Acute respiratory failure wi th hypoxia and hypercapnia 08/12/2024 01/22/2025 Pneumonia, unspecified organism 04/06/2024 04/04/2025 Aortic stenosis 10/05/2022 11/24/2024 Severe aortic valve stenosis 10/05/2022 03/25/2023 11/24/2024 NSTEMI (non-ST elevated myoc ardial infarction) 09/29/2022 03/25/2023 11/24/2024 Dizziness 09/21/2019 11/25/2020 Essential hypertension 09/21/201912/02 Essential hypertension 09/14/201909/24 Dizziness 09/14/2019 12/11/2019 Urinary incontinence with continuous leakage 9 12/14/2019 Current moderate episode of major depressive disorder 01/30/2019 12/14/2019 Weakness of both lower extremities 08/31/2018 05/28/2020
--- OUTSIDE RECORDS SUMMARY | 2025-06-25 13:03 | XMS_ITS | Encounter Summary ---
Author Organization [facility] [employer] tem Address [facility] [place] [id number] [address] [place] [address] Care Team Providers Care Dye Boarding Machine Operator Name Role Phone Jaylan Gray APRN-PATENT SOLICITOR Primary Care Provider + Encounter Details Date Type Department Care Team (Late st Contact Info) Description 03/04/2023 Telephone [facility] Internal Medicine - Family Medicine [address] [place] [address] Thais Pichardo MA Social History Tobacco Use [...] often do you attend chur ch or restoration services? More than 4 times per year 10/05/2022 Do you belong to any clubs o r organizations such as adventism groups, unions, fraternal or athletic groups, or [...] Answer Date Recorded Total Score 0 02/09/2023 [facility] of Occupat ional Health - [...] Telephone Encounter - Thais Pichardo MA - 03/04/2023 1:32 PM EDT fyi-pt called 3 times today, spoke to lavelle 2 times, hanging up on her, and hung up on me-stating whatever as she hung up. She was calling looking for bx results-explained they are not back yet and we will notify her as soon as they come in and a provider sees them. documented in this encounter Plan of Treatment Upcoming Encounters Date Type Department Care Team (Late st Contact Info) Description 09/05/2025 1:00 PM EDT Office Visit [facility] Internal Medicine - Family Medicine [address] [place] [address] Jaylan Gray, THERMAL ENGINEER-PATENT SOLICITOR [address], [address] [address] documented as of this encounter Visit Diagnoses [...] documented as of this encounter Care Teams Dye Boarding Machine Operator Relationship Specialty Start Date End Date Jaylan Gray, ALICE-BARTOLO [address] [place] [address] PCP - General Nurse Practitioner 05/30/25 documented as of this encounter
--- OUTSIDE RECORDS SUMMARY | 2025-06-25 13:04 | XMS_ITS | Encounter Summary ---
Author Organization [facility] tem Address [id number] [address] [place] [address] Care Team Providers Care Rip Machine Operator Name Role Phone Chrisstacie Jaylan Cohen APRN-TEST MAN Primary Care Provider + Encounter Details Date Type Department Care Team (Late st Contact Info) Description 09/17/2020 Telephone [facility] Family Medicine [address] [facility] [place] [address] Thais Pichardo MA Social History [...] have Coronavirus / COVID-19? No / Unsure 09/17/2020 10:20 AM EST documented as of this encounter Miscellaneous Notes * Telephone Encounter - Thais Pichardo MA - 09/17/2020 9:32 AM EST Ileana called and said mom came home from hospital sun night and she hasn't eaten anything since.She is drinking water and peeing, but when talked to Cuca on speaker phone, Cuca said she doesn't feel good at all and wants to go back to ER. I told Ileana to hang up with me and get her there. Thais Pichardo MA 09/17/20 0934 * Telephone Encounter - KAIDEN Werner - 09/17/2020 9:32 AM EST I reviewed her note. She went to ER and it appears she is being transferred to another hospital. I do not have the diagnosis or hospital information at this time. documented in this encounter Plan of Treatment Upcoming Encounters Date Type Department Care Team (Late st Contact Info) Description 09/05/2025 1:00 PM EDT Office Visit [facility] Internal Medicine - Family Medicine [address] [place] [address] Jaylan Gray, ALICE-TEST MAN [address], [place] [address] documented as of this encounter Visit Diagnoses [...] Noted Time PHQ-9 Depression Total Score: 0 09/14/20 20 6:10 AM EDT A Body Mass Index follow-up plan has been documented for the patient 08/20/2020 7:19 AM EDT documented as of this encounter Care Teams Rip Machine Operator Relationship Specialty Start Date End Date Jaylan Gray, FINANCIAL ACCOUNTANT-TEST MAN [address] [place] [address] PCP - General Nurse Practitioner 05/30/25 documented as of this encounter
--- OUTSIDE RECORDS SUMMARY | 2025-06-25 13:04 | XMS_ITS | Encounter Summary ---
Author Organization [employer] [facility] tem Address [id number] [address] [place] [address] Care Team Providers Care Compliance Attorney Name Role Phone Jaylan Gray BLOWER OPERATOR-MARRIAGE COUNSELOR Primary Care Provider + Reason for Visit * Reason Comments Med Refill Encounter Details Date Type Department Care Team (Late st Contact Info) Description 08/31/2018 Refill [facility] [address] [place] [address] Stephanie Ley, BLOWER OPERATOR-MARRIAGE COUNSELOR [address] PM 05/14/25 [place] [address] Mixed hyperlipidemia Social History Tobacco Use Types Packs/Day Years Used Date Smoking Tobacco: Never Smokeless Tobacco: Never Alcohol Use Standard Drinks/Week Comments No 0 (1 standard drink = 0.6 oz pur e alcohol) Comments No Sex and Gender Information Value [...] Medicine - Family Medicine [address] [place] [id number] Jaylan Gray, BLOWER OPERATOR-MARRIAGE COUNSELOR [address] [place] [address] documented as of this encounter Visit Diagnoses [...] Noted Time PHQ-9 Depression Total Score: 0 08/31/20 18 9:00 AM EDT documented as of this encounter Care Teams Compliance Attorney Relationship Specialty Start Date End Date Jaylan Gray, BLOWER OPERATOR-MARRIAGE COUNSELOR [address] [place] [address] PCP - General Nurse Practitioner 05/30/25 documented as of this encounter
--- OUTSIDE RECORDS SUMMARY | 2025-06-25 13:04 | XMS_ITS | Encounter Summary ---
Author Organization [employer] tem Address [facility] [id number] [address] [place] [address] Care Team Providers Care Gage Maker Name Role Phone Isaac Jaylan Vicki JENKINS-PROBATE JUDGE Primary Care Provider + Encounter Details Date Type Department Care Team (Late st Contact Info) Description 11/22/2020 [facility] [address] [place] [address] [address] Thais Pichardo MA Social History [...] have Coronavirus / COVID-19? No / Unsure 11/25/2020 10:32 AM EST documented as of this encounter Miscellaneous Notes * Telephone Encounter - Thais Pichardo MA - 11/22/2020 9:06 AM EST PT CALLED AND SAID TROUBLE CONTROLLING BS, THIS AM WAS 60, ATE SAUSAGE [place] AND WENT UP TO 131.TAKING INSULIN HS AND LEVEMIR AM. WILL DISCUSS ON MON AT APPT. ALSO HAVING AB PAIN AND BLEEDING ON HER BRIEFS, TOLD HER TO GO TO ER IF SHE FEELS NECESSARY OR PAINIS BAD. Thais Pichardo MA 11/22/20 0908 documented in this encounter Plan of Treatment Upcoming Encounters Date Type Department Care Team (Late st Contact Info) Description 09/05/2025 1:00 PM EDT Office Visit [facility] - Family Medicine [address] [place] [address] Jaylan Gray, SIGN ARTIST-PROBATE JUDGE [address], [address] [address] documented as of this encounter Visit Diagnoses [...] Noted Time PHQ-9 Depression Total Score: 0 09/24/20 9:18 AM EST A Body Mass Index follow-up plan has been documented for the patient 08/20/2020 7:19 AM EDT documented as of this encounter Care Teams Gage Maker Relationship Specialty Start Date End Date Jaylan Gray, ALICE-PROBATE JUDGE [address] [place] [address] PCP - General Nurse Practitioner 05/30/25 documented as of this encounter
--- OUTSIDE RECORDS SUMMARY | 2025-06-25 13:04 | XMS_ITS | Clinical Summary ---
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 Active nystatin (MYCOSTATIN) powderIndicatio ns:Fabby infection of flexural skin Apply 1 Application topically in the morning and 1 Application at noon and 1 Application in the evening and 1 Application before bedtime. 60 g 1 09/06/20 24 Active traZODone (DESYREL) 100 mg tabletIndicatio ns:Insomnia, unspecified type TAKE 1 TABLET BY MOUTH EVERY DAY AT NIGHT 90 tablet 1 11/28/19 25 Active Additional Information Patient taking differently: 100 mg oral Nightly, TAKE 1 TABLET BY MOUTH EVERY DAY AT NIGHT, Reported on 05/13/2025 mirtazapine (REMERON) 7.5 mg tabletIndicatio ns:Insomnia, unspecified type Take 1 tablet (7.5 mg total) by mouth nightly. 90 tablet 1 01/23/20 25 Active letrozole (FEMARA) 2.5 mg chemo tablet Take 1 tablet by mouth daily 90 tablet 3 01/26/20 25 026 Active sertraline (ZOLOFT) 100 mg tablet Take 1 tablet (100 mg total) by mouth in the morning. 01/29/20 25 Active gabapentin (NEURONTIN) 300 mg capsule Take 2 capsules (600 mg total) by mouth nightly. Active gabapentin (NEURONTIN) 300 mg capsuleIndicati ons: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 mellitus ([facility]) Take 1 capsule (300 mg total) by mouth in the morning. 02/25/20 25 Active cyanocobalamin 1000 MCG tablet Take 1 tablet (1,000 mcg total) by mouth in the morning. 02/26/20 25 Active insulin lispro (HumaLOG) 100 unit/mL insulin pen Inject 2-10 Units under the skin 4 (four) times a day with meals and nightly. 151-200 mg/dL, give 2 units. 201-250 mg/dL, give 4 units. 251-300 mg/dL, give 6 units. 301-350 mg/dL, give 8 units 351-400 mg/dL, give 10 units 15 mL 12 02/25/20 25 Active ferrous sulfate 325 (65 FE) MG tablet Take 1 tablet (325 mg total) by mouth daily with breakfast. 05/16/20 25 Active furosemide (LASIX) 20 mg tablet Take 1 tablet (20 mg total) by mouth daily. 05/16/20 25 Active lidocaine (SALONPAS) 4 % Place 1 patch on the skin daily. 30 patch 05/29/20 25 Active insulin detemir U-100 (LEVEMIR) 100 unit/mL (3 mL) insulin pen Inject 15 Units under the skin nightly. 15 mL 12 08/24/20 24 025 Discontinued lidocaine (SALONPAS) 4 % Place 1 patch on the skin daily. 30 patch 01/11/20 25 025 Discontinued CEPHalexin (KEFLEX) 500 mg capsule Take 1 capsule (500 mg total) by mouth in the morning and 1 capsule (500 mg total) before bedtime. Do all this for 7 days. 14 capsule 06/08/20 25 025 Discontinued CEPHalexin (KEFLEX) 500 mg capsule Take 1 capsule (500 mg total) by mouth in the morning and 1 capsule (500 mg total) before bedtime. Do all this for 5 days. 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 05/30/2018 Overview (05/30/2018): Exacerbation, Chronic Anemia, chronic disease 09/07/2017 GERD without esophagitis 05/25/2017 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 mellitus 05/25 PVD (peripheral vascular disease) 05/25/2017 Resolved Problems Problem Noted Date Diagnosed Date [...] Weakness of both lower extremities 08/31/2018 05/28/2020 Encounters Date Type Department Care Team Description 2025 Telephone [facility] Internal Medicine - Family Medicine [address] [place] [address] Radha Pritchard RN Transition Of Care 06/11/2025 12:40 AM EDT - 06/13/2025 3:05 PM EDT Hospital Encounter [facility] - Acute Care [address] [place] [address] Prem Day MD Asif, Eleni Patel MD UTI (urinary tract infection) (Primary Dx) Discharge Disposition: Home Health 06/10/2025 10:08 AM EDT - 06/10/2025 2:16 PM EDT Emergency [facility] - Emergency [address] [place] [address] Ramesh Pryor DO Acute cystitis with hematuria (Primary Dx) Discharge Disposition: Home 06/10/2025 Travel 06/08/2025 8:12 AM EDT - 06/08/2025 1:42 PM EDT Emergency [facility] - Emergency [address] [place] [address] Sasha Ayala MD Urinary tract infection without hematuria, site unspecified (Primary Dx); Other fatigue Discharge Disposition: Home 06/08/2025 Travel 06/05/2025 1:00 PM EDT [facility] [address] [place] [address] Jaylan Gray, CONSULTING SOLUTION MANAGER-[facility] Hospital discharge follow-up (Primary Dx); Closed fracture of right hip, sequela 06/05/2025 Travel 05/29/2025 11:40 PM EDT - 05/30/2025 1:35 AM EDT Emergency [facility] - Emergency [address] [place] [address] Johnathan Gustafson DO Right hip pain (Primary Dx); Closed fracture of right hip with routine healing, subsequent encounter Discharge Disposition: Home 05/29/2025 Travel 05/13/2025 10:27 AM EDT - 05/15/2025 5:25 PM EDT Hospital Encounter [facility] - Acute Care [address] [place] [address] Jack Milligan DO Shah, Jagruti Nimit, MD Muhammad, Ruqiyya T, MD Acute respiratory failure with hypoxia ([facility]) (Primary Dx); Nondisplaced fracture of lesser trochanter of right femur, initial encounter for closed fracture (CMS-HCC); Generalized weakness; Closed fracture of right hip, initial encounter ([facility]); Hypoxia; Type 2 diabetes mellitus with hypoglycemia without coma, with long-term current use of insulin (CMS-HCC) Discharge Disposition: [facility]-Medicare Cert 05/13/2025 Travel 05/12/2025 10:31 AM EDT - 05/12/2025 5:55 PM EDT Emergency [facility] - Emergency [address] [place] [address] Alfonso Darby MD Right hip pain (Primary Dx) Discharge Disposition: Home 05/12/2025 Travel 05/11/2025 12:03 AM EDT - 05/11/2025 4:51 AM EDT Emergency [facility] - Emergency [address] [place] [address] James Pryor MD Chronic right-sided low back pain with right-sided sciatica (Primary Dx) Discharge Disposition: Home 05/11/2025 Travel 05/10/2025 Travel 05/09/2025 11:34 PM EDT - 05/10/2025 8:15 AM EDT Emergency [facility] - Emergency [address] [place] [address] Ben Thibodeaux MD Sciatica of right side (Primary Dx) Discharge Disposition: Home 04/28/2025 10:54 AM EDT - 04/28/2025 5:32 PM EDT Emergency [facility] - Emergency [address] [place] [address] Brennan Bower DO Acute cystitis without hematuria (Primary Dx) Discharge Disposition: Home 04/28/2025 Travel 04/23/2025 Telephone [facility] Internal Medicine - Family Medicine [address] [place] [address] Mignon Dias CMA 04/05/2025 Orders Only [facility] Infectious Disease [address] [address] Amina Munguia, CONSULTING SOLUTION MANAGER-[employer] Bacteremia (Primary Dx) 04/04/2025 9:00 AM EDT Office Visit [facility] Medicine - Family Medicine [address] [place] [address] Stephanie Ley, CONSULTING SOLUTION MANAGER-[employer] Moderate major depression (CMS-HCC) (Primary Dx); Insomnia, unspecified type; Normal pressure hydrocephalus (CMS-HCC); Acute on chronic diastolic heart failure (CMS-HCC); Diabetes mellitus type 2, insulin dependent (CMS-HCC) 04/03/2025 8:00 AM EDT Infusion Stephany Landaverde [facility] - Medical Oncology [address] [place] [phone] Staphylococcus aureus bacteremia with sepsis (CMS-HCC) (Primary Dx); MRSA (methicillin resistant Staphylococcus aureus) 04/03/2025 Travel 04/01/2025 8:00 AM EDT Infusion Stephany Landaverde [facility] - Medical Oncology [address] [place] [phone] Staphylococcus aureus bacteremia with sepsis ([facility]) (Primary Dx); MRSA (methicillin resistant Staphylococcus aureus) 03/30/2025 8:00 AM EDT Infusion Stephany Carnes [facility] - Medical Oncology [address] [place] [phone] Staphylococcus aureus bacteremia with sepsis (CMS-HCC) (Primary Dx); MRSA (methicillin resistant Staphylococcus aureus) 03/28/2025 8:30 AM EDT Infusion Stephany Carnes [facility] - Medical Oncology [address] [place] [phone] Staphylococcus aureus bacteremia with sepsis (CMS-HCC) (Primary Dx); MRSA (methicillin resistant Staphylococcus aureus) 03/28/2025 Travel 03/27/2025 Telephone [facility] Internal Medicine - Family Medicine [address] [facility] [address] Alice Morrison CMA 03/26/2025 9:00 AM EDT Infusion Stephany L [facility] - Medical Oncology [address] [place] [phone] Staphylococcus aureus bacteremia with sepsis ([facility]) (Primary Dx); MRSA (methicillin resistant Staphylococcus aureus) from Last 3 Months Immunizations Immunization Administration Dates Next Due COVID-19, mRNA, LNP-S, PF, 3 0mcg/0.3mL Dose 02/04/2021,01/07/2021 Influenza High Dose Preserva tive Free IM 08/27/2021 Influenza Vaccine, Quadrival ent, Adjuvanted 08/10/2023,08/06/2022 Influenza, High-dose, Quadrivalent 08/30/2020 Influenza, Injectable, Quadrivalent 09/14/2019 Influenza, Injectable, quadr ivalent (PF) 11/25/2020,09/11/2019,08/31/2018,09/07 Influenza, Trivalent, Adjuvanted 08/28/2024 Pneumococcal Conjugate 13-Valent 05/28/2021 Pneumococcal Polysaccharide 05/16/2020, 5,06/29/2015 Tuberculin Skin Test; Unspec ified Formulation 04/24/2024,04/12/2024,04/13/2023,04/06,05/10/2020 Family History Medical History Relation Name Comments No Known Problems Brother Coronary artery disease Father Hypertension Father Diabetes Mother Breast cancer Neg Hx Relation Name Status Comments Brother Alive Daughter Alive Father (Age 58) Mother (Age 94) Social History Tobacco Use Types Packs/Day Years Used Date Smoking Tobacco: Never Smokeless Tobacco: Never Tobacco Cessation:Counseling Given: Not Answered Alcohol Use Standard Drinks/Week Comments No 0 (1 standard drink = 0.6 oz pur e alcohol) [facility] Utilities Answer Date Recorded In [...] week 10/28/2024 How often do you attend [facility] or confucianism services? More than 4 times per year [...] Answer Date Recorded Total Score 0 06/05/2025 [facility] - Occupational [...] Orientation Straight 10/05/2022 8: 20 AM EST Last Filed Vital Signs Vital Sign Reading [...] Mass Index 30.59 06/11/2025 4:21 AM EDT Plan of Treatment Upcoming Encounters Date Type Department Care Team (Late st Contact Info) Description 09/05/2025 1:00 PM EDT Office Visit [facility] - Family Medicine [address] [place] [address] Jaylan Gray, CONSULTING SOLUTION MANAGER-L[employer] [address] [place] [address] Health Maintenance Due Date Last Done Comments DTaP,Tdap and Td Vaccines (1 - Tdap) 1964 Zoster (Shingles) Vaccine (1 of 2) 1964 COVID-19 Vaccine (3 - Pfizer risk series) 03/04/2021 02/04/2021, 01/07/2021 Medicare Annual Wellness Visit 08/10/2024 0 08/10/2023, 08/06/2022, 05/28/2021, Additional history exists Influenza Vaccine 07/16/2025 08/28/2024, , 08/06/2022, Additional history exists Depression Screening 06/05/2026 06/05/2025 Fall Risk Screening 06/05/2026 06/05/2025 Tobacco Screening 06/11/2026 06/11/2025 Goals Goal Patient Goal Type Associated Problems Recent Progress Patient-Stated? Author SNF General Yes Purvi Cardenas, RN Note: Evaluation of progress towards goal: Patient agrees she will need skilled care as a result of the fracture she has. 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 Docking Saw Operator Device Identifier Shelf Expiration Date Model / Serial / Lot Valve Aor Evolut Fx 26mm - [id number] - [id number] Implanted:Qty : 1 on 08/17/2023 by Chava Norris MD at [facility] Implant Valve N/A: Aorta [employer] EVOLUTFX- 26 / [id number] / Procedures Procedure Name Priority Date/Time Associated Diagnosis [...] BEDSIDE GLUCOSE Routine 06/11/2025 9:13 AM EDT PLATELET COUNT Routine 06/11/2025 5:17 AM EDT HEMOGLOBIN Routine 06/11/2025 5:17 AM EDT APTT Routine 06/11/2025 5:17 AM EDT EXTRA TUBES PST TOP Routine 06/11/2025 5 :16 AM EDT MAGNESIUM Add-On 06/11/2025 5:16 AM EDT EXTRA TUBES Routine 06/11/2025 5:16 AM EDT TROP I, HIGH SENSITIVITY 1 HOUR STAT 06/11/2025 2:[address] ABDOMEN AND PELVIS WO CONT STAT 06/11/2025 2:11 AM EDT XR CHEST 1 VW STAT 06/11/2025 2:11 AM EDT EXTRA TUBES BLUE TOP Routine 06/11/2025 12:58 AM EDT EXTRA TUBES Routine 06/11/2025 12:58 AM EDT B-TYPE NATRIURETIC PEPTIDE STAT 06/11/2025 12:58 AM EDT TROPONIN I, HIGH SENSITIVITY 0 HOUR STAT 06/11/2025 12:58 AM EDT CK TOTAL STAT 06/11/2025 12:58 AM EDT THYROID PROFILE INCLUDES TSH FT4 STAT 06/11/2025 12:58 AM EDT MAGNESIUM STAT 06/11/2025 12:58 AM EDT TROPONIN I, HIGH SENSITIVITY 0 HOUR STAT 06/11/2025 12:58 AM EDT COMPREHENSIVE METABOLIC PANEL STAT 06/11/2025 12:58 AM EDT CBC WITH AUTO DIFFERENTIAL STAT 06/11/2025 12:58 AM EDT ECG 12-LEAD STAT 06/11/2025 12:51 AM EDT POCT NURSING URINE MACROSCOPIC UA Routine 06/10/2025 1:29 PM EDT URINE CULTURE STAT 06/10/2025 1:27 PM EDT COMPREHENSIVE METABOLIC PANEL STAT 06/10/2025 10:55 AM EDT CBC WITH AUTO DIFFERENTIAL STAT 06/10/2025 10:55 AM EDT EXTRA TUBES BLUE TOP Routine 06/10/2025 10:54 AM EDT EXTRA TUBES Routine 06/10/2025 10:54 AM EDT POCT NURSING URINE MACROSCOPIC UA Routine 06/08/2025 12:59 PM EDT TROP I, HIGH SENSITIVITY 1 HOUR STAT 06/08/2025 9:38 AM EDT XR CHEST 1 VW STAT 06/08/2025 8:54 AM EDT TROPONIN I, HIGH SENSITIVITY 0 HOUR STAT 06/08/2025 8:32 AM EDT THYROID PROFILE INCLUDES TSH FT4 STAT 06/08/2025 8:32 AM EDT TROPONIN I, HIGH SENSITIVITY 0 HOUR STAT 06/08/2025 8:32 AM EDT CBC WITH AUTO DIFFERENTIAL STAT 06/08/2025 8:32 AM EDT MAGNESIUM STAT 06/08/2025 8:32 AM EDT B-TYPE NATRIURETIC PEPTIDE STAT 06/08/2025 8:32 AM EDT BASIC METABOLIC PANEL STAT 06/08/2025 8:32 AM EDT EXTRA TUBES BLUE TOP Routine 06/08/2025 8:31 AM EDT EXTRA TUBES Routine 06/08/2025 8:31 AM EDT ECG 12-LEAD STAT 06/08/2025 8:20 AM EDT XR HIP RT 2-3 VIEWS W OR WO PELVIS STAT 05/30/2025 12:22 AM EDT BEDSIDE GLUCOSE Routine 05/15/2025 11:01 AM EDT CBC WITH AUTO DIFFERENTIAL Routine 05/15/2025 5:12 AM EDT MAGNESIUM Routine 05/15/2025 5:12 AM EDT COMPREHENSIVE METABOLIC PANEL Routine 05/15/2025 5:12 AM EDT EXTRA TUBES SST TOP Routine 05/15/2025 5 :11 AM EDT EXTRA TUBES Routine 05/15/2025 5:11 AM EDT BEDSIDE GLUCOSE Routine 05/14/2025 9:01 PM EDT MAGNESIUM Routine 05/14/2025 7:14 PM EDT BEDSIDE GLUCOSE Routine 05/14/2025 4:[address] BRAIN WO CONT Routine 05/14/2025 12:0 4 PM EDT BEDSIDE GLUCOSE Routine 05/14/2025 11:26 AM EDT MAGNESIUM Routine 05/14/2025 4:14 AM EDT COMPREHENSIVE METABOLIC PANEL Routine 05/14/2025 4:14 AM EDT CBC WITH AUTO DIFFERENTIAL Routine 05/14/2025 4:13 AM EDT BEDSIDE GLUCOSE Routine 05/13/2025 9:31 PM EDT PLATELET COUNT Routine 05/13/2025 7:55 PM EDT HEMOGLOBIN Routine 05/13/2025 7:55 PM EDT APTT Routine 05/13/2025 7:55 PM EDT EXTRA TUBES PST TOP Routine 05/13/2025 7 :54 PM EDT EXTRA TUBES Routine 05/13/2025 7:54 PM EDT BEDSIDE GLUCOSE Routine 05/13/2025 2:[address] HIP RT WO CONT STAT 05/13/2025 12: 24 PM EDT TROP I, HIGH SENSITIVITY 1 HOUR STAT 05/13/2025 12:03 PM EDT PM ED CRITICAL CARE Routine 05/13/2025 1 1:24 AM EDT BLOOD GAS, ARTERIAL Routine 05/13/2025 1 1:21 AM EDT EXTRA TUBES BLUE TOP Routine 05/13/2025 11:09 AM EDT EXTRA TUBES Routine 05/13/2025 11:09 AM EDT B-TYPE NATRIURETIC PEPTIDE STAT Add-on 05/13/2025 11:09 AM EDT BLOOD CULTURE STAT 05/13/2025 11:09 AM EDT BLOOD CULTURE STAT 05/13/2025 11:08 AM EDT PROCALCITONIN Add-On 05/13/2025 10:55 AM EDT C-REACTIVE PROTEIN STAT Add-on 05/13/2025 10 :55 AM EDT LACTATE W/ REFLEX STAT 05/13/2025 10: 55 AM EDT TROPONIN I, HIGH SENSITIVITY 0 HOUR STAT 05/13/2025 10:55 AM EDT TROPONIN I, HIGH SENSITIVITY 0 HOUR STAT 05/13/2025 10:55 AM EDT COMPREHENSIVE METABOLIC PANEL STAT 05/13/2025 10:55 AM EDT CBC WITH AUTO DIFFERENTIAL STAT 05/13/2025 10:55 AM EDT XR CHEST 1 VW STAT 05/13/2025 10:53 AM EDT ECG 12-LEAD STAT 05/13/2025 10:38 AM EDT POCT NURSING URINE MACROSCOPIC UA Routine 05/12/2025 1:12 PM EDT ER EXTRA URINE MARBLE STAT 05/12/2025 1:01 PM EDT ER EXTRA URINE CULTURE STAT 05/12/2025 1:01 PM EDT ER EXTRA URINE STAT 05/12/2025 1:01 PM EDT URINE CULTURE STAT 05/12/2025 1:[address] LUMBAR SPINE WO CONT STAT 05/12/2025 11:52 AM EDT EXTRA TUBES BLUE TOP Routine 05/12/2025 11:30 AM EDT EXTRA TUBES Routine 05/12/2025 11:30 AM EDT COMPREHENSIVE METABOLIC PANEL STAT 05/12/2025 11:24 AM EDT CBC WITH AUTO DIFFERENTIAL STAT 05/12/2025 11:24 AM EDT XR SPINE LUMBAR 2 OR 3 VWS STAT 05/11/2025 1:07 AM EDT XR CHEST 1 VW STAT 04/28/2025 12:34 PM EDT POCT NURSING URINE MACROSCOPIC UA Routine 04/28/2025 12:31 PM EDT ER EXTRA URINE MARBLE STAT 04/28/2025 12:20 PM EDT ER EXTRA URINE STAT 04/28/2025 12:20 PM EDT URINE CULTURE STAT 04/28/2025 12:[address] BRAIN WO CONT STAT 04/28/2025 11:2 7 AM EDT CBC WITH AUTO DIFFERENTIAL STAT 04/28/2025 11:22 AM EDT COMPREHENSIVE METABOLIC PANEL STAT 04/28/2025 11:21 AM EDT BASIC METABOLIC PANEL Routine 04/03/2025 8:50 AM EDT Staphylococcus aureus bacteremia with sepsis (CMS-HCC) MRSA (methicillin resistant Staphylococcus aureus) CBC WITH AUTO DIFFERENTIAL Routine 04/03/2025 8:50 AM EDT Staphylococcus aureus bacteremia with sepsis (CMS-HCC) MRSA (methicillin resistant Staphylococcus aureus) CK TOTAL Routine 04/03/2025 8:50 AM EDT Staphylococcus aureus bacteremia with sepsis ([facility]) MRSA (methicillin resistant Staphylococcus aureus) CK TOTAL Routine 03/26/2025 9:44 AM EDT Staphylococcus aureus bacteremia with sepsis ([facility]) MRSA (methicillin resistant Staphylococcus aureus) BASIC METABOLIC PANEL Routine 03/26/2025 9:44 AM EDT Staphylococcus aureus bacteremia with sepsis ([facility]) MRSA (methicillin resistant Staphylococcus aureus) CBC WITH AUTO DIFFERENTIAL Routine 03/26/2025 9:44 AM EDT Staphylococcus aureus bacteremia with sepsis ([facility]) MRSA (methicillin resistant Staphylococcus aureus) from Last 3 Months Results * (ABNORMAL) Bedside Glucose *Place/Obtain serum glucose if >500 per glucometer. (06/13/2025 11:04AM EDT) Only the most recent of15 resultswithin the time period is included. Pathologist [facility] Bedside Glucose (POC) 336(H) 65 - 99 mg/dL 06/13/2025 11:13 AM EDT [facility] arterial/capilla ry 06/13/2025 11:04 AM EDT 06/13/2025 11:13 AM EDT us Eleni Min MD POINT OF CARE TEST ORDERABLES Final Result [facility] [address] [place] [address], * Light Blue Top (06/13/2025 5:44 AM EDT) Only the most recent of6 resultswithin the time period is included. Extra Tube Auto Resulted 06/13/2025 7:01 AM EDT [facility] Blood Venous blood / Unknown 06/13/2025 5:44 AM EDT 06/13/2025 5:51 AM EDT us Eleni Min MD LAB BLOOD ORDERABLES Final Res ult [facility] [address] [place] [address], [place] * (ABNORMAL) CBC auto differential (06/13/2025 5:44 AM EDT) Only the most recent of12 resultswithin the time period is included. WBC 6.8 4 - 11 x10E9/L 06/13/2025 5:56 AM EDT [facility] RBC Count 3.45(L) 3.8 - 5.2 X10E12/L 06/13/2025 5:56 AM EDT [facility] Hemoglobin 9.2(L) 11.7 - 15.5 g/dL 06/13/2025 5:56 AM EDT [facility] Hematocrit 28.0(L) 35 - 47 % 06/13/2025 5:56 AM EDT [facility] MCV 81 80 - 100 fL 06/13/2025 5:56 AM EDT [facility] MCH 26.7(L) 27 - 34 pg 06/13/2025 5:56 AM EDT [facility] MCHC 33.0 32 - 36 g/dL 06/13/2025 5:56 AM EDT [facility] RDW 16.5(H) 11.5 - 15 % 06/13/2025 5:56 AM EDT [facility] Platelet Count 226 150 - 450 X10E9/L 06/13/2025 5:56 AM EDT [facility] MPV 8.2 7 - 12 fL 06/13/2025 5:56 AM EDT [facility] Neutrophils % 50.3 % 06/13/2025 5:56 AM EDT [facility] Lymphocytes % 31.9 % 06/13/2025 5:56 AM EDT [facility] Monocytes % 12.4 % 06/13/2025 5:56 AM EDT [facility] Eosinophils % 4.0 % 06/13/2025 5:56 AM EDT [facility] Basophils % 1.4 % 06/13/2025 5:56 AM EDT [facility] Neutrophils Absolute (A) 3.4 1.5 - 6.6 10*3/uL 06/13/2025 5:56 AM EDT [facility] Lymphocytes Absolute 2.2 1.0 - 3.5 10*3/uL 06/13/2025 5:56 AM EDT [facility] Monocytes Absolute 0.8 0.0 - 0.9 10*3/uL 06/13/2025 5:56 AM EDT [facility] Eosinophils Absolute 0.3 0.0 - 0.4 10*3/uL 06/13/2025 5:56 AM EDT [facility] Basophils Absolute 0.1 0.0 - 0.2 10*3/uL 06/13/2025 5:56 AM EDT [facility] Differential Type AUTOMATED DIFFERENTIAL 06/13/2025 5:56 AM EDT [facility] Blood Venous blood / Unknown Venipuncture / Unknown 06/13/2025 5:44 AM EDT 06/13/2025 5:48 AM EDT us Nayana Bermudez CONSULTING SOLUTION MANAGER-L[employer]ENSED [employer] LAB BLOOD ORDERABLES Bing l Result Performing Organization Address City/State/[facility] Co de Phone Number [facility] [address] [place] [address], * Magnesium (06/13/2025 5:44 AM EDT) Only the most recent of8 resultswithin the time period is included. MAGNESIUM 2.0 1.8 - 2.6 mg/dL 06/13/2025 7:03 AM EDT [facility] Blood Venous blood / Unknown Venipuncture / Unknown 06/13/2025 5:44 AM EDT 06/13/2025 5:48 AM EDT us Nayana Bermudez CONSULTING SOLUTION MANAGER-L[employer]ED [employer] LAB BLOOD ORDERABLES Bing sundar Result [facility] [address] [facility] [place] [address], [place] * (ABNORMAL) Comprehensive metabolic panel (06/13/2025 5:44 AM EDT) Only the most recent of9 resultswithin the time period is included. SODIUM 140 134 - 146 mmol/L 06/13/2025 7:03 AM EDT [facility] POTASSIUM 3.8 3.5 - 5.0 mmol/L 06/13/2025 7:03 AM EDT [facility] CHLORIDE 106 98 - 109 mmol/L 06/13/2025 7:03 AM EDT [facility] CARBON DIOXIDE 26 22 - 32 mmol/L 06/13/2025 7:03 AM EDT [facility] ANION GAP 8 5 - 15 mmol/L 06/13/2025 7:03 AM EDT [facility] BLOOD UREA NITROGEN 18 5 - 27 mg/dL 06/13/2025 7:03 AM EDT [facility] CREATININE 1.28(H) 0.40 - 1.00 mg/dL 06/13/2025 7:03 AM EDT [facility] Comment:METHOD TRACEABLE TO IDMS STANDARD GLUCOSE 160(H) 65 - 99 mg/dL 06/13/2025 7:03 AM EDT [facility] CALCIUM 8.8 8.5 - 10.5 mg/dL 06/13/2025 7:03 AM EDT [facility] TOTAL PROTEIN 6.3 6.0 - 8.0 g/dL 06/13/2025 7:03 AM EDT [facility] ALBUMIN 2.9(L) 3.2 - 5.3 g/dL 06/13/2025 7:03 AM EDT [facility] ALKALINE PHOSPHATASE 104 39 - 130 U/L 06/13/2025 7:03 AM EDT [facility] AST 14 <=41 U/L 06/13/2025 7:03 AM EDT [facility] ALT 8 <=31 U/L 06/13/2025 7:03 AM EDT [facility] BILIRUBIN,TOTAL 0.3 0.3 - 1.2 mg/dL 06/13/2025 7:03 AM EDT [facility] EGFR Non-Race Dependent 43(L) >=60 ml/min/1.7 3sq.m 06/13/2025 7:03 AM EDT [facility] Comment: eGFR not reported due to non-numeric value for Creatinine. Reported eGFR is based on the CKD-EPI 2020 equation that does not use a race coefficient. Blood Venous blood / Unknown Venipuncture / Unknown 06/13/2025 5:44 AM EDT 06/13/2025 5:48 AM EDT us Nayana Bermudez CONSULTING SOLUTION MANAGER-[employer] LAB BLOOD ORDERABLES Bing l Result [facility] [address] [place] [address], [place] * (ABNORMAL) Urinalysis (06/13/2025 1:01 AM EDT) COLOR Yellow Yellow 06/13/2025 1:56 AM EDT [facility] TURBIDITY Clear Clear 06/13/2025 1:56 AM EDT [facility] SPECIFIC GRAVITY 1.025 1.003 - 1.035 06/13/2025 1:56 AM EDT [facility] NITRITE Negative Negative 06/13/2025 1:56 AM EDT [facility] PH,URINE 6.0 5.0 - 8.5 06/13/2025 1:56 AM EDT [facility] LEUKOCYTE ESTERASE Negative Negative 06/13/2025 1:56 AM EDT [facility] PROTEIN Trace(A) Negative 06/13/2025 1:56 AM EDT [facility] KETONES (URINE) Negative Negative 1:56 AM EDT [facility] UROBILINOGEN 0.2 eu/dL 0.2 eu/dL, 1.0 eu/dL 06/13/2025 1:56 AM EDT [facility] BILIRUBIN (URINE) Negative Negative 06/13/2025 1:56 AM EDT [facility] BLOOD/HGB Negative Negative 06/13/2025 1:56 AM EDT [facility] MUCOUS Present(A) None 06/13/2025 1:56 AM EDT [facility] GLUCOSE (URINE) Negative Negative, 250 mg/dL 06/13/2025 1:56 AM EDT [facility] Urine Urine specimen collection, clean catch / Unknown 06/13/2025 1:01 AM EDT 06/13/2025 1:12 AM EDT us Prem Day MD URINE ORDERABLES Final Result [facility] [address] [place] [address], * Urine Culture Urine, Clean Catch Midstream (06/13/2025 1:01 AM EDT) Only the most recent of4 resultswithin the time period is included. CULTURE RESULTS <10,000 ORGANISMS/m L NORMAL URO GENITAL BAILEY 06/14/2025 6:48 AM EDT [facility] Urine Urine specimen collection, clean catch / Unknown 06/13/2025 1:01 AM EDT 06/13/2025 1:12 AM EDT us Prem Day MD MICROBIOLOGY - GENERAL ORDERA BLES Final Result [facility] [address] [place] [address], [place] [phone] * APTT (06/11/2025 5:17 AM EDT) Only the most recent of2 resultswithin the time period is included. APTT 27 26 - 37 sec 06/11/2025 6:08 AM EDT [facility] Blood Venous blood / Unknown Venipuncture / Unknown 06/11/2025 5:17 AM EDT 06/11/2025 5:41 AM EDT Nayana Bermudez CONSULTING SOLUTION MANAGER-[facility] LAB BLOOD ORDERABLES Bing l Result Performing Organization Address City/[facility] de Phone Number [address] [place] [address], [place] * Platelet count (06/11/2025 5:17 AM EDT) Only the most recent of2 resultswithin the time period is included. Platelet Count 287 150 - 450 [id number]/L 06/11/2025 6:04 AM EDT [facility] MPV 8.7 7 - 12 fL 06/11/2025 6:04 AM EDT [facility] Blood Venous blood / Unknown Venipuncture / Unknown 06/11/2025 5:17 AM EDT 06/11/2025 5:41 AM EDT Nayana Bermudez CONSULTING SOLUTION MANAGER-[facility] LAB BLOOD ORDERABLES Bing l Result Performing Organization Address City/[facility] Co de Phone Number [address] [place] [address], [place] * (ABNORMAL) Hemoglobin (06/11/2025 5:17 AM EDT) Only the most recent of2 resultswithin the time period is included. Hemoglobin 10.3(L) 11.7 - 15.5 g/dL 06/11/2025 6:04 AM EDT [facility] Blood Venous blood / Unknown Venipuncture / Unknown 06/11/2025 5:17 AM EDT 06/11/2025 5:41 AM EDT us Nayana Aidan CONSULTING SOLUTION MANAGER-[employer] LAB BLOOD ORDERABLES Bing l Result Performing Organization Address [facility] Co de Phone Number [address] [place] [address], [place] * PST TOP (06/11/2025 5:16 AM EDT) Only the most recent of2 resultswithin the time period is included. Extra Tube Auto Resulted 06/11/2025 7:01 AM EDT [facility] Blood Venous blood / Unknown 06/11/2025 5:16 AM EDT 06/11/2025 5:48 AM EDT us Eleni Min MD LAB BLOOD ORDERABLES Final Res ult Performing Organization Address [facility] Co de Phone Number [address] [place] [address], [place] * Troponin I, High Sensitivity 1 Hour (06/11/2025 2:11 AM EDT) Only the most recent of3 resultswithin the time period is included. TROPONIN I, HIGH SENSITIVITY 13 <16 ng/L 06/11/2025 2:43 AM EDT [facility] Blood Venous blood / Unknown Venipuncture / Unknown 06/11/2025 2:11 AM EDT 06/11/2025 2:15 AM EDT us Prem Day MD LAB BLOOD ORDERABLES Final Re sult Performing Organization Address [facility] Co de Phone Number [address] [place] [address], [place] * CT abdomen and pelvis without [...] chest 1 view (06/11/2025 2:11 AM EDT) Only the most recent of4 resultswithin the time period is included. Anatomical Region Laterality Modality Body, Chest N/A [...] DIAGNOSTIC IMAGING ORDERA BLES Final Result * Troponin I, High Sensitivity 0 Hour (06/11/2025 12:58 AM EDT) Only the most recent of3 resultswithin the time period is included. Pathologist [facility] [place] TROPONIN I, HIGH SENSITIVITY 12 <16 ng/L 06/11/2025 1:36 AM EDT [facility] Blood Venous blood / Unknown Venipuncture / Unknown 06/11/2025 12:58 AM EDT 06/11/2025 1:00 AM EDT Prem Day MD LAB BLOOD ORDERABLES Final Re sult [facility] [address] [place] [address], * Thyroid profile includes TSH FT4 (06/11/2025 12:58 AM EDT) Only the most recent of2 resultswithin the time period is included. FREE T4 1.59 0.61 - 1.60 ng/dL 06/11/2025 1:48 AM EDT [facility] TSH 2.32 0.49 - 4.67 uIU/mL 06/11/2025 1:48 AM EDT [facility] Blood Venous blood / Unknown Venipuncture / Unknown 06/11/2025 12:58 AM EDT 06/11/2025 1:00 AM EDT Prem Day MD LAB BLOOD ORDERABLES Final Re sult Performing Organization Address City/[facility] Co de Phone Number [address] [place] [address], [place] * (ABNORMAL) B-type natriuretic peptide (06/11/2025 12:58 AM EDT) Only the most recent of3 resultswithin the time period is included. BNP 161(H) <=100 pg/mL 06/11/2025 1:35 AM EDT [facility] Blood Venous blood / Unknown Venipuncture / Unknown 06/11/2025 12:58 AM EDT 06/11/2025 1:00 AM EDT Prem Day MD LAB BLOOD ORDERABLES Final Re sult Performing Organization Address [facility] de Phone Number [address] [place] [address], [place] * CK Total (06/11/2025 12:58 AM EDT) Only the most recent of3 resultswithin the time period is included. CPK 81 24 - 170 U/L 06/11/2025 1:28 AM EDT [facility] Blood Venous blood / Unknown Venipuncture / Unknown 06/11/2025 12:58 AM EDT 06/11/2025 1:00 AM EDT us Prem Day MD LAB BLOOD ORDERABLES Final Re sult Performing Organization Address City/[facility] Co de Phone Number [facility] [address] [place] [address], [place] * ECG 12 lead (06/11/2025 12:51 AM EDT) Only the most recent of3 resultswithin the time period is included. 06/11/2025 12:5 1 AM EDT Narrative [facility] - 06/11/2025 10:18 PM EDT us Prem Day MD ECG ORDERABLES Final Result [facility] * (ABNORMAL) POCT Nursing Urine Macroscopic UA (06/10/2025 1:29 PM EDT) Only the most recent of4 resultswithin the time period is included. POC Urine Specific Gering >=1.030(A) 1.010, 1.015, 1.020, 1.025 06/10/2025 1:21 PM EDT [facility] POC Urine Leukocyte Esterase Trace(A) Negative 06/10/2025 1:21 PM EDT [facility] POC Urine Nitrite Negative Negative 06/10/2025 1:21 PM EDT [facility] POC Urine pH 5.5 5.0, 6.0, 6.5, 7.0, 7.5, 8.0, 8.5, 5.5 06/10/2025 1:21 PM EDT [facility] POC Urine Protein 100 mg/dL(A) Negative 06/10/2025 1:21 PM EDT [facility] POC Urine Glucose Negative Negative 06/10/2025 1:21 PM EDT [facility] POC Urine Ketones 40 mg/dL(A) Negative 06/10/2025 1:21 PM EDT [facility] POC Urine Urobilinogen 0.2 E.U./dL 06/10/2025 1:21 PM EDT [facility] POC Urine Bilirubin Moderate(A) Negative 06/10/2025 1:21 PM EDT [facility] POC Urine Blood/HGB Trace(A) Negative 06/10/2025 1:21 PM EDT [facility] Urine 06/10/2025 1:29 PM EDT 06/10/2025 1:21 PM EDT us Ramesh Pryor DO POINT OF CARE TEST ORDERABLE S Final Result [facility] [address] [place] [address], [place] * (ABNORMAL) Basic Metabolic Panel (06/08/2025 8:32 AM EDT) Only the most recent of3 resultswithin the time period is included. SODIUM 135 134 - 146 mmol/L 06/08/2025 8:50 AM EDT [facility] POTASSIUM 4.2 3.5 - 5.0 mmol/L 06/08/2025 8:50 AM EDT [facility] CHLORIDE 101 98 - 109 mmol/L 06/08/2025 8:50 AM EDT [facility] CARBON DIOXIDE 24 22 - 32 mmol/L 06/08/2025 8:50 AM EDT [facility] ANION GAP 10 5 - 15 mmol/L 06/08/2025 8:50 AM EDT [facility] BLOOD UREA NITROGEN 14 5 - 27 mg/dL 06/08/2025 8:50 AM EDT [facility] CREATININE 1.31(H) 0.40 - 1.00 mg/dL 06/08/2025 8:50 AM EDT [facility] Comment:METHOD TRACEABLE TO IDMS STANDARD GLUCOSE 174(H) 65 - 99 mg/dL 06/08/2025 8:50 AM EDT [facility] CALCIUM 9.3 8.5 - 10.5 mg/dL 06/08/2025 8:50 AM EDT [facility] EGFR Non-Race Dependent 42(L) >=60 ml/min/1.7 3sq.m 06/08/2025 8:50 AM EDT [facility] Comment: eGFR not reported due to non-numeric value for Creatinine. Reported eGFR is based on the CKD-EPI 2020 equation that does not use a race coefficient. Blood Venous blood / Unknown Venipuncture / Unknown 06/08/2025 8:32 AM EDT 06/08/2025 8:34 AM EDT us Sahsa Ayala MD LAB BLOOD ORDERABLES Final Re sult [facility] [address] [place] [address], * X-ray hip right 2-3 views with or without pelvis (05/30/2025 12:22 AM EDT) Anatomical Region Laterality Modality Lower Extremities, MSK, Hip Right Comp uted Radiography 05/30/2025 12:2 3 AM EDT Narrative 05/30/2025 12:26 AM EDT History: Pain Exam/Technique: AP pelvis and AP and crosstable lateral views of the right hip were obtained. Comparison: Comparison made to a CT of the right hip dated 05/13/2025 Findings: A displaced fracture of the lesser trochanter is again seen. There is an old fracture of the inferior pubic rami bilaterally. There is no evidence for an acute osseous abnormality. The remaining visualized osseous structures are intact. IMPRESSION: Stable displaced fracture of the lesser trochanter, unchanged from the previous examination 05/13/2025. There is no evidence for an acute fracture. Finalized by Johnathan Zheng MD on 05/30/2025 12:26 AM Procedure Note Johnathan Zheng MD - 05/30/2025 History: Pain Exam/Technique: AP pelvis and AP and crosstable lateral views of theright hip were obtained. Comparison: Comparison made to a CT of the right hip dated 05/13/2025 Findings: A displaced fracture of the lesser trochanter is again seen.There is an old fracture of the inferior pubic rami bilaterally. There isno evidence for an acute osseous abnormality. The remaining visualizedosseous structures are intact. IMPRESSION: Stable displaced fracture of the lesser trochanter, unchangedfrom the previous examination 05/13/2025. There is no evidence for an acutefracture. Finalized by Johnathan Zheng MD on 05/30/2025 12:26 AM Johnathan Gustafson DO IMG DIAGNOSTIC IMAGING ORDERABLE S Final Result * SST TOP (05/15/2025 5:11 AM EDT) Extra Tube Auto Resulted 05/15/2025 7:01 AM EDT [facility] Blood Venous blood / Unknown Venipuncture / Unknown 05/15/2025 5:11 AM EDT 05/15/2025 6:01 AM EDT Felix Winters MD LAB BLOOD ORDERABLES Final Result [facility] [address] [place] [address], [place] * CT brain without contrast (05/14/2025 12:04 PM EDT) Only the most recent of2 resultswithin the time period is included. Anatomical Region Laterality Modality Neuro, Head, Head and Neck, Neuro Covera N/A Computed Tomography 05/14/2025 12:2 3 PM EDT Narrative 05/14/2025 12:24 PM EDT STUDY: CT HEAD WITHOUT CONTRAST CLINICAL HISTORY: AMS Altered mental status COMPARISON: April 28 Procedure: Multi-detector CT performed through the brain without IV contrast. The lack of IV contrast limits evaluation for acute infarct, mass, infectious process,or demyelinating disease.Automated exposure control was utilized. Findings: Prominent ventricles and right ventricular shunt catheter similar in appearance to prior study. There is no new intracranial hemorrhage, extra-axial fluid collection, or mass effect. Dunham-white matter differentiation is appropriate. Infarcts and masses may be occult on CT, but grossly no acute infarct identified There is no midline shift. IMPRESSION: * No acute change. Consider brain MRI if you suspect occult process. All CT scans at this facility use dose modulation, iterative reconstruction, and/or weight based dosing when appropriate to reduce radiation dose to as low as reasonably achievable. Finalized by Blu Miller MD on 05/14/2025 12:24 PM Procedure Note Blu Miller MD - 05/14/2025 STUDY: CT HEAD WITHOUT CONTRAST CLINICAL HISTORY: AMS Altered mental status COMPARISON: April 28 Procedure: Multi-detector CT performed through the brain without IV contrast. Thelack of IV contrast limits evaluation for acute infarct, mass, infectiousprocess,or demyelinating disease.Automated exposure control wasutilized. Findings: Prominent ventricles and right ventricular shunt catheter similar inappearance to prior study. There is no new intracranial hemorrhage,extra-axial fluid collection, or mass effect. Dunham-white matter differentiation is appropriate. Infarcts and masses may be occult on CT, but grossly no acute infarctidentified There is no midline shift. IMPRESSION: * No acute change. Consider brain MRI if you suspect occult process. All CT scans at this facility use dose modulation, iterativereconstruction, and/or weight based dosing when appropriate to reduceradiation dose to as low as reasonably achievable. Finalized by Blu Miller MD on 05/14/2025 12:24 PM Jaylan Gray CONSULTING SOLUTION MANAGER-[employer] G CT ORDERABLES Final Result * CT hip right without contrast (05/13/2025 12:24 PM EDT) Anatomical Region Laterality Modality MSK, Lower Extremities, Hip, MSK Covera Right Computed Tomography 05/13/2025 12:5 1 PM EDT Narrative 05/13/2025 1:01 PM EDT Study: CT right hip History:Pain sepsis Protocol:CT right hip without contrast Contrast none COMPARISON:No prior Findings: There is an isolated fracture through lesser trochanter with minimal displacement. Degenerative changes in the hips with mild joint space are narrowing but there may be some subarticular cystic changes. No left hip [...] Chester Parra MD on 05/13/2025 1:01 PM Procedure Note Chester Parra MD - 05/13/2025 Study: CT right hip History:Pain sepsis Protocol:CT right hip without contrast Contrast none COMPARISON:No prior Findings: There is an isolated fracture through lesser trochanter with minimaldisplacement. Degenerative changes in the hips with mild joint space are narrowing butthere may be some subarticular cystic changes. No left hip fracture. Degenerative changes in the left hip No definite CT evidence of osteomyelitis. No soft tissue swelling or softtissue gas. Noncontrast CT is not sensitive for early osteomyelitis and ifosteomyelitis is suspected MRI for nuclear medicine labeled white cellstudy would be best for further evaluation IMPRESSION: * Isolated minimally displaced fracture through the right lessertrochanter. * Degenerative changes in both hips. * No definite CT evidence of osteomyelitis. No soft tissue swelling orsoft tissue gas. Noncontrast CT is not sensitive for early osteomyelitisand if osteomyelitis is suspected MRI for nuclear medicine labeled whitecell study would be best for further evaluation All CT scans at this facility use dose modulation, iterativereconstruction, and/or weight based dosing when appropriate to reduceradiation dose to as low as reasonably achievable Finalized by Chester Parra MD on 05/13/2025 1:01 PM Jazmine Bustillo APRN-[employer] [facility] CT ORDERABLES Fin al Result * Critical Care (05/13/2025 11:24 AM EDT) Jack Schwartz DO - 05/13/2025 11:24 AM EDT Jack Milligan DO 05/14/2025 10:54 PM Critical Care Performed by: Jack Milligan DO Authorized by: Jack Milligan DO Critical care provider statement: Critical care time (minutes): 30 Critical care was necessary to treat or prevent imminent or life-threatening deterioration of the following conditions: Sepsis and respiratory failure Critical care was time spent personally by me on the following activities: Evaluation of patient's response to treatment, examination of patient, obtaining history from patient or surrogate, re-evaluation of patient's condition, review of old charts, pulse oximetry, ordering and review of radiographic studies, ordering and review of laboratory studies and ordering and performing treatments and interventions I assumed direction of critical care for this patient from another provider in my specialty: yes Care discussed with: admitting provider us Jack Milligan DO PROCEDURE/MINOR SURGICAL ORDERAB LES Final Result * (ABNORMAL) Blood Gas, Arterial (05/13/2025 11:21 AM EDT) Sample type ARTERIAL 05/13/2025 11:23 AM EDT [facility] pH, Arterial 7.349(L) 7.350 - 7.450 05/13/2025 11:23 AM EDT [facility] pCO2, Arterial 41.4 35.0 - 45.0 mmHg 05/13/2025 11:23 AM EDT [facility] PO2, Arterial 67(L) 80 - 100 mmHg 05/13/2025 11:23 AM EDT [facility] Base, Deficit -3.0(L) 0.0 - 2.0 mmol/L 05/13/2025 11:23 AM EDT [facility] HCO3, Arterial 22.8 22.0 - 26.0 mmol/L 05/13/2025 11:23 AM EDT [facility] %O2 Saturation, Arterial 92.0 >90.0 % 05/13/2025 11:23 AM EDT [facility] Jin's test N/A 05/13/2025 11:23 AM EDT [facility] SPO2 67 % 05/13/2025 11:23 AM EDT [facility] Sample site L Rad 05/13/2025 11:23 AM EDT [facility] Source Of Oxygen NC 05/13/2025 11:23 AM EDT [facility] Arterial site (attribute) (Blood, Arterial) 05/13/2025 11:21 AM EDT 05/13/2025 11:23 AM EDT us Jack Milligan DO LAB BLOOD ORDERABLES Final Resul t [facility] [address] [place] [address], [place] * Blood culture (05/13/2025 11:09 AM EDT) Only the most recent of2 resultswithin the time period is included. CULTURE RESULTS NO GROWTH 5 DAYS 05/18/2025 10:01 PM EDT [facility] Blood Venous blood / Unknown Venipuncture / Unknown 05/13/2025 11:09 AM EDT 05/13/2025 11:22 AM EDT us Jazmine Bustillo CONSULTING SOLUTION MANAGER-[employer] MICROBIOLOGY - GENERA L ORDERABLES Final Result [facility] [address] [place] [address], [place] [phone] * (ABNORMAL) Procalcitonin (05/13/2025 10:55 AM EDT) PROCALCITONIN 0.05(H) <0.05 ng/mL 05/13/2025 3:56 PM EDT [facility] Blood Venous blood / Unknown 05/13/2025 10:55 AM EDT 05/13/2025 11:19 AM EDT Narrative [facility] - 05/13/2025 3:56 PM EDT <0.50 ng/mL - Low risk of severe sepsis and/or septic shock. <2.00 ng/mL - Recommend retesting within 6-24 hours. >2.00 ng/mL - High risk of sepsis and/or septic shock. Nayana Bermudez CONSULTING SOLUTION MANAGER-[employer] LAB BLOOD ORDERABLES Bing l Result Performing Organization Address City/[facility] Co de Phone Number [address] [place] [address], [place] * Lactate w/ Reflex (05/13/2025 10:55 AM EDT) LACTATE W/REFLEX 1.5 0.4 - 2.0 mmol/L 05/13/2025 11:38 AM EDT [facility] Blood Venous blood / Unknown 05/13/2025 10:55 AM EDT 05/13/2025 11:19 AM EDT Narrative [facility] - 05/13/2025 11:38 AM EDT Result did not trigger repeat Lactate, re-order if needed. Jazmine Bustillo CONSULTING SOLUTION MANAGER-[employer] LAB BLOOD ORDERABLES Final Result Performing Organization Address [facility] Co de Phone Number [address] [place] [address], [place] * (ABNORMAL) C-reactive protein (05/13/2025 10:55 AM EDT) C REACTIVE PROTEIN 6.1(H) <=0.7 mg/dL 05/13/2025 12:37 PM EDT [facility] Blood Venous blood / Unknown 05/13/2025 10:55 AM EDT 05/13/2025 11:19 AM EDT Jazmine Bustillo CONSULTING SOLUTION MANAGER-[employer] LAB BLOOD ORDERABLES Final Result Performing Organization Address [facility] Co de Phone Number [address] [place] [address], [place] * Extra Urine Lesage (05/12/2025 1:01 PM EDT) Only the most recent of2 resultswithin the time period is included. Extra Tube Auto Resulted 05/12/2025 3:01 PM EDT [facility] Urine Urine specimen collection, clean catch / Unknown 05/12/2025 1:01 PM EDT 05/12/2025 1:59 PM EDT us Jazmine Sotochner CONSULTING SOLUTION MANAGER-[employer] URINE ORDERABLES Bing l Result Performing Organization Address City/[facility] Co de Phone Number [address] [place] [address], [place] * Extra Urine Culture (05/12/2025 1:01 PM EDT) Extra Tube Auto Resulted 05/12/2025 3:01 PM EDT [facility] Urine Urine specimen collection, clean catch / Unknown 05/12/2025 1:01 PM EDT 05/12/2025 1:59 PM EDT us Jazmine Bossner CONSULTING SOLUTION MANAGER-[employer] URINE ORDERABLES Bing l Result Performing Organization Address [facility] de Phone Number [address] [place] [address], [place] * Extra Urine (05/12/2025 1:01 PM EDT) Only the most recent of2 resultswithin the time period is included. Extra Tube Auto Resulted 05/12/2025 3:01 PM EDT [facility] Urine Urine specimen collection, clean catch / Unknown 05/12/2025 1:01 PM EDT 05/12/2025 1:59 PM EDT us Jazmine Bossner CONSULTING SOLUTION MANAGER-[employer] URINE ORDERABLES Bing l Result Performing Organization Address [facility] Co de Phone Number [address] [place] [address], [place] * CT lumbar spine without contrast (05/12/2025 11:52 AM EDT) Anatomical Region Laterality Modality MSK, Neuro, Spine, L-spine, Spine Covera N/A Computed Tomography 05/12/2025 12:3 0 PM EDT Narrative 05/12/2025 12:37 PM EDT EXAM: CT SCAN OF THE LUMBAR SPINE [...] thoracic spine. Stable appearance of a chronic moderate compression deformity of L1, presumed pathologic. Stable minimal [...] foramina. There is also suspected severe narrowing of the right L2-3 neural foramen. There is partial visualization of aortic valve replacement. The distal portion of a SHEET TESTER shunt is seen within the abdomen. Again [...] ovarian. There is partial visualization of a SHEET TESTER shunt and changes of aortic valve replacement. All CT scans at this facility use dose modulation, iterative reconstruction, and/or weight based dosing when appropriate to reduce radiation dose to as low as reasonably achievable. Finalized by Laci Lima MD on 05/12/2025 12:37 PM Procedure Note Laci Lima MD - 05/12/2025 EXAM: CT SCAN OF THE LUMBAR SPINE WITHOUT CONTRAST CLINICAL INFORMATION: back pain, right hip pain, 3rd ER visit. TECHNIQUE: CT lumbar spine performed without contrast with axial, coronaland sagittal images. Automated exposure control utilized. COMPARISON: CT of the lumbar spine dated 03/24/2025, radiographs of thelumbar spine dated 05/11/2025 FINDINGS: The lumbar spine maintains a normal lordotic curvature. Table appearanceof mixed lytic and sclerotic osseous metastatic disease throughout thelumbosacral and visualized lower thoracic spine. Stable appearance of achronic moderate compression deformity of L1, presumed pathologic. Stableminimal 0.4 cm dorsal retropulsion of the posterior-superior corner of [id number] the ventral aspect of the thecal sac. Minimal chroniccompression involving the superior endplate of L2 is stable. The remainingvisualized vertebral body heights are normal. There is no convincingevidence for a new acute displaced fracture of the lumbar spine. Stable chronic localized mildgrade 1 degenerative anterolisthesis of L4 on L5 and mild degenerativeretrolisthesis of L5 on S1. Stable chronic degenerative disc disease withloss of the disc space heights and degenerative vacuum disc phenomena.This is most prominently seen at L5-S1 where there is dissected severe narrowing of theneural foramina. There is also suspected severe narrowing of the rightL2-3 neural foramen. There is partial visualization of aortic valve replacement. The distalportion of a SHEET TESTER shunt is seen within the abdomen. Again seen is a 6.1 cmleft adnexal cyst, suspected ovarian. IMPRESSION: 1. There has been no significant interval change since 03/24/2025. Stableappearance of diffuse lytic and sclerotic osseous metastatic disease. 2. Stable appearance of a chronic moderate compression fracture of the I6qiyicxmqu body with minimal O.4 cm dorsal retropulsion flattening thecalsac. Stable minimal chronic compression involving the superior endplate ofL2. No convincing new fractures are identified. 3. Redemonstration of chronic degenerative disc disease, as above. Thereis suspected severe L5-S1 and right L2-3 neural foraminal stenosis. 4. Partial visualization of a 6.1 cm left adnexal cyst, suspected ovarian.There is partial visualization of a SHEET TESTER shunt and changes of aortic valvereplacement. All CT scans at this facility use dose modulation, iterativereconstruction, and/or weight based dosing when appropriate to reduceradiation dose to as low as reasonably achievable. Finalized by Laci Lima MD on 05/12/2025 12:37 PM Jazmine Bustillo CONSULTING SOLUTION MANAGER-LICENSED REAL ESTATE BROKER IMG CT ORDERABLES Fin al Result * X-ray spine lumbar 2 or 3 views (05/11/2025 1:07 AM EDT) Anatomical Region Laterality Modality MSK, Neuro, Spine, L-spine N/A Compu collin Radiography 05/11/2025 2:28 AM EDT Narrative 05/11/2025 2:32 AM EDT XR SPINE LUMBAR 2 OR 3 VWS HISTORY: Right low back pain, sciatica COMPARISON: CT lumbar spine 03/24/2025 TECHNIQUE: AP, lateral, and coned-down views of the lumbar spine obtained. FINDINGS: Five lumbar-type vertebrae. The lumbar alignment is maintained without evidence of spondylolisthesis. Unchanged compression fracture deformity of L1 vertebrae. Multilevel degenerative disc disease with narrowing of multiple intervertebral disc spaces. Severe facet arthropathy within the lower lumbar spine. The SI joints are unremarkable. No acute fractures identified. Multiple pelvic phleboliths present. There is a drain present with tip projecting over the mid pelvis. Nonobstructive bowel gas pattern. Grade 1 anterolisthesis of L4 and L5. IMPRESSION: * No evidence of acute osseous abnormality. * Chronic degenerative changes and unchanged wedge compression deformity of L1. Approved by Resident Tony Suárez MD on 05/11/2025 2:28 AM Johnathan Huber MD have personally reviewed the image(s) and agree with and/or edited the report Finalized by Johnathan Zheng MD on 05/11/2025 2:32 AM Procedure Note Johnathan Zheng MD - 05/11/2025 XR SPINE LUMBAR 2 OR 3 VWS HISTORY: Right low back pain, sciatica COMPARISON: CT lumbar spine 03/24/2025 TECHNIQUE: AP, lateral, and coned-down views of the lumbar spineobtained. FINDINGS: Five lumbar-type vertebrae. The lumbar alignment is maintained without evidence of spondylolisthesis.Unchanged compression fracture deformity of L1 vertebrae. Multileveldegenerative disc disease with narrowing of multiple intervertebral discspaces. Severe facet arthropathy within the lower lumbar spine. The SIjoints are unremarkable. No acute fractures identified. Multiple pelvicphleboliths present. There is a drain present with tip projecting over themid pelvis. Nonobstructive bowel gas pattern. Grade 1 anterolisthesis ofL4 and L5. IMPRESSION: * No evidence of acute osseous abnormality. * Chronic degenerative changes and unchanged wedge compression deformityof L1. Approved by Resident Tony Suárez MD on 05/11/2025 2:28 AM I, Johnathan Zheng MD have personally reviewed the image(s) and agreewith and/or edited the report Finalized by Johnathan Zheng MD on 05/11/2025 2:32 AM James Pryor MD IMG DIAGNOSTIC IMAGING ORDER QUENTIN Final Result from Last 3 Months Insurance [place] Advance Directives Documents on File Type Date Recorded Patient Garde Manager Expl anation Durable Power of Torpedo Shooter 03/30/2025 9:23 AM Durable Power of Torpedo Shooter 10/21/2022 2:24 PM DNR Physician Order 10/21/2022 2:24 PM Living Will 01/30/2021 12:07 PM Durable Power of Torpedo Shooter 01/30/2021 12:07 PM Living Will 01/29/2021 6:19 AM Advance Directive 01/29/2021 6:18 AM DNR Physician Order 11/03/2019 1:27 PM * Full Code (Latest Code Status on File) Date Activated Date Inactivated Comments 06/11/2025 4:30 AM 06/13/2025 5:13 PM * Full Code Date Activated Date Inactivated Comments 05/13/2025 2:45 PM 05/15/2025 7:30 PM * Full Code Date Activated Date Inactivated Comments 03/16/2025 3:53 PM 03/19/2025 2:00 PM * Full Code Date Activated Date Inactivated Comments 02/14/2025 11:06 PM 02/24/2025 3:32 PM * Full Code Date Activated Date Inactivated Comments 02/12/2025 8:06 PM 02/14/2025 10:55 PM Care Teams Hazmat Tanker Driver Relationship Specialty Start Date End Date Jaylan Gray, CONSULTING SOLUTION MANAGER-LICENSED REAL ESTATE BROKER [address] [place] [address] PCP - General Nurse Practitioner 05/30/25
--- OUTSIDE RECORDS SUMMARY | 2025-06-25 13:04 | XMS_ITS | Encounter Summary ---
Author Organization [employer] tem Address [id number] [address] [place] [address] Care Team Providers Care Freelance Copywriter Name Role Phone Isaac Jaylan Cohen APRN-DRIVER RECRUITER Primary Care Provider + Reason for Visit * Reason Onset Date Comments Med Refill 08/19/2020 Encounter Details Date Type Department Care Team (Late st Contact Info) Description 08/19/2020 Refill [facility] [address] [facility] [place] [address] Thais Pichardo MA Abrasion Social History Tobacco Use Types Packs/Day Years [...] have Coronavirus / COVID-19? No / Unsure 08/15/2020 2:14 PM EDT documented as of this encounter Miscellaneous Notes * Telephone Encounter - Thais Pichardo MA - 08/19/2020 3:07 PM EDT She said she would like refill on this cream, helped a lot when she needs it Thais Pichardo MA 08/19/20 [id number] documented in this encounter Plan of Treatment Upcoming Encounters Date Type Department Care Team (Late st Contact Info) Description 09/05/2025 1:00 PM EDT Office Visit [facility] - Family Medicine [address] [place] [address] Jaylan Gray, SENIOR UI DESIGNER-DRIVER RECRUITER [address] [place] [address] documented as of this encounter Visit Diagnoses Diagnosis Abrasion Abrasion or friction burn of other, multiple, and unspecified sites, without mention of infection documented in this encounter Additional Health Concerns [...] Noted Time PHQ-9 Depression Total Score: 0 08/15/20 2:35 PM EDT A Body Mass Index follow-up plan has been documented for the patient 08/20/2020 7:19 AM EDT documented as of this encounter Care Teams Freelance Copywriter Relationship Specialty Start Date End Date Jaylan Gray, SENIOR UI DESIGNER-DRIVER RECRUITER [address] [facility] [place] [address] PCP - General Nurse Practitioner 05/30/25 documented as of this encounter
--- OUTSIDE RECORDS SUMMARY | 2025-06-25 13:04 | XMS_ITS | Encounter Summary ---
Author Organization [employer] [facility] tem Address [id number] [address] [place] [address] Care Team Providers Care Neck Cutter Name Role Phone Isaac Jaylan Cohen APRN-INSTRUCTIONAL SYSTEMS SPECIALIST Primary Care Provider + Reason for Visit * Reason Onset Date Comments confussion 07/30/2020 Encounter Details Date Type Department Care Team ([facility] Contact Info) Description 07/30/2020 Telephone [facility] [address] [place] [phone] Leslie Wolf MA confussion Social History Tobacco Use Types Packs/Day Years [...] have Coronavirus / COVID-19? No / Unsure 07/24/2020 9:40 AM EDT documented as of this encounter Plan of Treatment Upcoming Encounters Date Type Department Care Team (Late Contact Info) Description 09/05/2025 1:00 PM EDT Office Visit [facility] - Family Medicine [address] [place] [address] Jaylan Gray, PLATER BARREL-INSTRUCTIONAL SYSTEMS SPECIALIST [address] [facility] [place] [address] documented as of this encounter Visit Diagnoses [...] Time PHQ-9 Depression Total Score: 0 05/28/20 20 9:39 AM EDT A Body Mass Index follow-up plan has been documented for the patient 06/11/2020 6:01 PM EDT documented as of this encounter Care Teams Neck Cutter Relationship Specialty Start Date End Date Jaylan Gray, ALICE-INSTRUCTIONAL SYSTEMS SPECIALIST [address] [place] [address] PCP - General Nurse Practitioner 05/30/25 documented as of this encounter
--- OUTSIDE RECORDS SUMMARY | 2025-06-25 13:04 | XMS_ITS | Encounter Summary ---
Author Organization [employer] [facility] tem Address [id number] [address] [place] [address] Care Team Providers Care Flaring Machine Operator Name Role Phone Jaylan Gray APRN-BARTOLO Primary Care Provider + Reason for Visit * Reason Onset Date Comments Med Refill 02/06/2019 Encounter Details Date Type Department Care Team (Late Contact Info) Description 02/06/2019 Refill [facility] [address] [place] [address] [address] Thais Pichardo MA Lumbar back pain with radiculopathy affecting left lower extremity Social History Tobacco Use Types Packs/Day Years Used Date Smoking Tobacco: Never Smokeless Tobacco: Never Alcohol Use Standard Drinks/Week Comments No 0 (1 standard drink = 0.6 oz pur e alcohol) PHQ-2 Answer Date Recorded PHQ-2 Score 7 01/30/2019 Childcare Answer Date Recorded Childcare Unknown 02/06/2019 Employment Answer Date Recorded Employment Unknown 02/06/2019 Comments No Sex and Gender Information Value [...] Medicine - Family Medicine [address] [place] [address] Jaylan Gray, DISPENSARY ATTENDANT-OFFICE SUPPORT ASSISTANT [address] [place] [address] documented as of this encounter Visit Diagnoses Diagnosis Lumbar back pain with radiculopathy affecting left lower extremity documented in this encounter Additional Health Concerns [...] Noted Time PHQ-9 Depression Total Score: 7 01/31/20 19 6:00 PM EDT documented as of this encounter Care Teams Flaring Machine Operator Relationship Specialty Start Date End Date Jaylan Gray, ALICE-OFFICE SUPPORT ASSISTANT [address] [place] [address] PCP - General Nurse Practitioner 05/30/25 documented as of this encounter
--- OUTSIDE RECORDS SUMMARY | 2025-06-25 13:04 | XMS_ITS | Encounter Summary ---
Author Organization [employer] [facility] tem Address [id number] [address] [place] [address] Care Team Providers Care Dispatcher Service Or Work Name Role Phone Jaylan Gray GAUGE AND WEIGH MACHINE ADJUSTERRIGGER Primary Care Provider + Reason for Visit * Reason Comments Med Refill Encounter Details Date Type Department Care Team (Late Contact Info) Description 07/27/2018 Refill [facility] [address] [place] [place] [address] Stephanie Ley, GAUGE AND WEIGH MACHINE ADJUSTER-[facility] [address] LEFT PM 05/14/25 [place] [address] Mixed diabetic hyperlipidemia associated with type 2 diabetes mellitus (HCC) Social History Tobacco Use Types Packs/Day Years [...] Medicine - Family Medicine [address] [place] [phone] Jaylan Gray, GAUGE AND WEIGH MACHINE ADJUSTER-RIGGER [address] [place] [address] documented as of this encounter Visit Diagnoses Diagnosis Mixed diabetic hyperlipidemia associated with type 2 diabetes mellitus (CMS-HCC) documented in [...] Noted Time PHQ-9 Depression Total Score: 0 07/13/20 18 1:00 PM EDT documented as of this encounter Care Teams Dispatcher Service Or Work Relationship Specialty Start Date End Date Jaylan Gray, GAUGE AND WEIGH MACHINE ADJUSTER-RIGGER [address] [place] [address] PCP - General Nurse Practitioner 05/30/25 documented as of this encounter
--- OUTSIDE RECORDS SUMMARY | 2025-06-25 13:04 | XMS_ITS | Encounter Summary ---
Author Organization [employer] tem Address [id number] [address] [place] [address] Care Team Providers Care Aircraft Engine Assembler Name Role Phone Jaylan Gray APRN-RN LVN Primary Care Provider + Reason for Visit * Reason Onset Date Comments Transition Of Care 2025 Encounter Details Date Type Department Care Team (Late st Contact Info) Description 2025 Telephone [facility] Medicine [address] [place] [phone] Radha Pritchard, retail beauty specialist Of Care Social History Tobacco Use Types Packs/Day Years Used Date Smoking Tobacco: Never Smokeless Tobacco: Never Alcohol Use Standard Drinks/Week Comments No 0 (1 standard drink = 0.6 oz pur e alcohol) [facility] Utilities Answer Date Recorded In the past 12 months has [employer], gas, oil, or water company threatened [...] often do you attend chur ch or yarsanism services? More than 4 times [...] Answer Date Recorded Total Score 0 06/05/2025 [facility] - [...] Recorded Do you need help finding a [facility] career center and/or a training program? [...] Telephone Encounter - Radha Pritchard RN - 2025 8:27 AM EDT Transition of Care (*required) *Additional Questions/Concerns Requiring PCP Follow-Up: Patient daughter Ileana states patient got an appt later on today with her kidney doctor after patient appt she will call and schedule a foll/solitario appt. For TCM, patient would need an appt on/before 06/26/25, unless otherwise directed by PCP. Please reviewed medications patient at the follow-up appt. Thank You This documentation is being used for Transition of Care purposes: Yes Goal: Patient will demonstrate a safe transition from Hospital to Home Diagnosis on Discharge: UTI (urinary tract infection) GERD without esophagitis 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 mellitus Anemia, chronic disease Obstructive sleep apnea syndrome Essential (primary) hypertension Stage 3b chronic kidney disease Generalized muscle weakness Iron deficiency anemia Hypomagnesemia Discharge Specialty: Urology *Name of Discharging Facility: [facility] Date of Facility Discharge: 06/11/2025 - 06/13/2025 Date of Interactive Contact and Name of Eyewear Manufacturing Tech: 8.1 at 8:42 CN spoke to patient daughter Ileana (HIPAA Verified) regarding patient care, health, and medications. *Medication Review Completed: No Patient daughter Ileana declined meds review. States no change was made to patient med list and [facility] is scheduled for later on today . Medication Reconciliation Questions/Concerns: None at this time *Follow Up Appointments with Providers: Primary: Jaylan Gray, ALICE-RN LVN TBD Specialty: Office visit with Adis Gray RN LVN 10.22 at 1 Review of Pending Lab/Diagnostic Tests and Plan for Completion: No pending lab/diagnostic test noted in the discharge summary. Assessment and Support of Treatment Regimen Adherence and Medication Management: CN spoke to patient daughter Ileana. Ileana states' patient is feeling better, resting at this time . States still complaining some discomfort to right hip . Informed pain is limiting her from performing Adl's. Says patient it hurts too bad . Patient using a wc for transportation d/t discomfort. Informed patient is not complaining of any urination discomfort. Patient uses a brief during the day and adult diaper at night. Denied any hematuria. UTI precautionreviewed. Informed she did not check patient BS yet, but she will when patient wake up. Instruct on a daily log. Denied patient c/o abdominal pain/distention, n/v, feeling warm/chills, recent fall or any cp/sob. Informed patient appetite is fair. Instruct on eating small nutritious meals throughout the day andincrease fluids. Denied patient c/o diarrhea or constipation. Says patient has no issue financially with being able to obtain medications, transportation, or food. Patient lives with her daughter and she is supportive in patient care. Education Provided by ACN to Support Self-Management, Independent Living and ADLs: Instruct patientto call the office for questions, concerns, new worsening or recurring s/s. Call 911 for urgent symptoms such as CP, SOB or symptoms of CVA Education given on UTI, meds, diet, infection prevention, safety and fall precautions, follow-up appt and d/c instruction reviewed. Communication with Home Health Agencies and Other Services Utilized/Needed by the Patient: Patient discharged home in the care of family as well as a skilled Nurse, PT and OT [facility] will provide service with a resumption of care on 8.1 per lIeana. * Telephone Encounter - Destiny Alexis CMA - 2025 8:27 AM EDT Transition of Care (*required) *Additional Questions/Concerns Requiring PCP Follow-Up: Patient daughter Ileana states patient got an appt later on today with her kidney doctor after patient appt she will call and schedule a foll/solitario appt. For TCM, patient would need an appt on/before 06/26/25, unless otherwise directed by PCP. Please reviewed medications patient at the follow-up appt. Thank You This documentation is being used for Transition of Care purposes: Yes Goal: Patient will demonstrate a safe transition from Hospital to Home Diagnosis on Discharge: UTI (urinary tract infection) GERD without esophagitis 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 mellitus Anemia, chronic disease Obstructive sleep apnea syndrome Essential (primary) hypertension Stage 3b chronic kidney disease Generalized muscle weakness Iron deficiency anemia Hypomagnesemia Discharge Specialty: Urology *Name of Discharging Facility: [facility] Date of Facility Discharge: 06/11/2025 - 06/13/2025 Date of Interactive Contact and Name of Eyewear Manufacturing Tech: 8.1 at 8:42 CN spoke to patient daughter Ileana (HIPAA Verified) regarding patient care, health, and medications. *Medication Review Completed: No Patient daughter Ileana declined meds review. States no change was made to patient med list and [facility] is scheduled for later on today . Medication Reconciliation Questions/Concerns: None at this time *Follow Up Appointments with Providers: Primary: KAIDEN Hopkins TBVicki Specialty: Office visit with Adis Gray CNP . at 1 Review of Pending Lab/Diagnostic Tests and Plan for Completion: No pending lab/diagnostic test noted in the discharge summary. Assessment and Support of Treatment Regimen Adherence and Medication Management: CN spoke to patient daughter Ileana. Ileana states' patient is feeling better, resting at this time . States still complaining some discomfort to right hip . Informed pain is limiting her from performing Adl's. Says patient it hurts too bad . Patient using a wc for transportation d/t discomfort. Informed patient is not complaining of any urination discomfort. Patient uses a brief during the day and adult diaper at night. Denied any hematuria. UTI precautionreviewed. Informed she did not check patient BS yet, but she will when patient wake up. Instruct on a daily log. Denied patient c/o abdominal pain/distention, n/v, feeling warm/chills, recent fall or any cp/sob. Informed patient appetite is fair. Instruct on eating small nutritious meals throughout the day andincrease fluids. Denied patient c/o diarrhea or constipation. Says patient has no issue financially with being able to obtain medications, transportation, or food. Patient lives with her daughter and she is supportive in patient care. Education Provided by ACN to Support Self-Management, Independent Living and ADLs: Instruct patientto call the office for questions, concerns, new worsening or recurring s/s. Call 911 for urgent symptoms such as CP, SOB or symptoms of CVA Education given on UTI, meds, diet, infection prevention, safety and fall precautions, follow-up appt and d/c instruction reviewed. Communication with Home Health Agencies and Other Services Utilized/Needed by the Patient: Patient discharged home in the care of family as well as a skilled Nurse, PT and OT [facility] will provide service with a resumption of care on 8.1 per Ileana. documented in this encounter Plan of Treatment Upcoming Encounters Date Type Department Care Team (Late st Contact Info) Description 09/05/2025 1:00 PM EDT Office Visit [facility] - Family Medicine [address] [place] [address] Jaylan Gray, MENTAL RETARDATION AIDE-RN LVN [address], [address] [address] documented as of this encounter Goals Goal Patient Goal Type Associated Problems Recent Progress Patient-Stated? Author SN[facility] General Yes Purvi Cardenas, GABBY Note: Evaluation of progress towards goal: Patient agrees she will need skilled care as a result of the fracture she has. documented as of this encounter Visit Diagnoses Not on filedocumented in this encounter Additional Health Concerns Assessment Noted Time PHQ-9 Depression Total Score: 0 06/05/20 25 1:02 PM EDT A Body Mass Index follow-up plan has been documented for the patient 04/04/2025 3:37 PM EDT documented as of this encounter Care Teams Aircraft Engine Assembler Relationship Specialty Start Date End Date Jaylan Gray, MENTAL RETARDATION AIDE-RN LVN [address] [place] [address] PCP - General Nurse Practitioner 05/30/25 documented as of this encounter
--- OUTSIDE RECORDS SUMMARY | 2025-06-25 13:04 | XMS_ITS | Encounter Summary ---
Author Organization [employer] Address [id number] [address] [place] [address] Care Team Providers Care Process Developer Name Role Phone Chrisstacie Jaylan Cohen APRN-MAILING CLERK Primary Care Provider + Reason for Visit * Reason Onset Date Comments Med Refill 10/09/2020 Encounter Details Date Type Department Care Team (Late st Contact Info) Description 10/09/2020 Refill [facility] [address] [place] [address] Thais Pichardo MA Controlled type 2 diabetes mellitus with diabetic nephropathy, without long-term current use of insulin ([facility]) (Primary Dx) Social History Tobacco Use Types [...] have Coronavirus / COVID-19? No / Unsure 09/24/2020 9:04 AM EST documented as of this encounter Miscellaneous Notes * Telephone Encounter - Thais Pichardo MA - 10/09/2020 12:02 PM EST Called and said meter isn't working good, reading off compared to when she has checked with daughters. She said hers is a couple years old and wants new sent over with supplies. Pended all and told once Deja approves, it will be sent Thais Pichardo MA 10/09/20 1205 documented in this encounter Plan of Treatment Upcoming Encounters Date Type Department Care Team (Late st Contact Info) Description 09/05/2025 1:00 PM EDT Office Visit [facility] [address] [place] [address] Jaylan Gray, GAMEWELL OPERATOR-MAILING CLERK [address] [place] [address] documented as of this encounter Visit Diagnoses Diagnosis Controlled type 2 diabetes mellitus with diabetic nephropathy, without long-term current use of insulin ([facility])- Primary documented in this encounter Additional Health [...] documented as of this encounter Care Teams Process Developer Relationship Specialty Start Date End Date Jaylan Gray, GAMEWELL OPERATOR-MAILING CLERK [address] [place] [address] PCP - General Nurse Practitioner 05/30/25 documented as of this encounter
--- OUTSIDE RECORDS SUMMARY | 2025-06-25 13:04 | XMS_ITS | Encounter Summary ---
Author Organization [employer] [facility] tem Address [facility] [id number] [address] [place] [address] Care Team Providers Care Pulp Mill Team Leader Name Role Phone Jaylan Gray APRN-ABRTOLO Primary Care Provider + Encounter Details Date Type Department Care Team (Late Contact Info) Description 02/12/2022 Orders Only [facility] [address] [place] [address] [place] [address] Ref Prov, [place] [address] Social History Tobacco Use Types Packs/Day Years Used Date Smoking Tobacco: Never Smokeless Tobacco: Never Alcohol Use Standard Drinks/Week Comments No 0 (1 standard drink = 0.6 oz pur e alcohol) PHQ-2 Answer Date Recorded Total Score 0 08/27/2021 Childcare Answer Date Recorded Childcare Unknown 04/14/2019 [...] Medicine - Family Medicine [address] [place] [address] Jaylan Gray, ROLLER SETTER-MATH COACH [address] [facility] [address] [place] [address] documented as of this encounter Procedures Procedure Name Priority Date/Time Associated Diagnosis Comments HEMOGLOBIN A1C Routine 02/11/2022 documented in this encounter Results * (ABNORMAL) HEMOGLOBIN A1C (02/11/2022) Hemoglobin A1C 6.2(A) 4.0 - 6.0 % MANUALLY TRANSCRIBED RESULTS Comment:at endo office us Not In System Ref Prov LAB BLOOD ORDERABLES Edit ed Result - Final MANUALLY TRANSCRIBED RESULTS documented in this encounter Visit Diagnoses Not on filedocumented in this encounter Additional Health Concerns Infection Onset Date Last Indicated Resolved Time COVID-19 Rule-Out 05/14/2022 05/14/2022 05/14/2022 10:19 AM [...] Noted Time PHQ-9 Depression Total Score: 0 10/13/20 21 10:38 AM EDT A Body Mass Index follow-up plan has been documented for the patient 12/02/2021 12:47 PM EST documented as of this encounter Care Teams Pulp Mill Team Leader Relationship Specialty Start Date End Date Jaylan Gray, ROLLER SETTER-MATH COACH [address] [place] [address] PCP - General Nurse Practitioner 05/30/25 documented as of this encounter
--- OUTSIDE RECORDS SUMMARY | 2025-06-25 13:04 | XMS_ITS | Encounter Summary ---
Author Organization [facility] tem Address [id number] [address] [place] [address] Care Team Providers Care Fish Processor Name Role Phone Chrisstacie Jaylan Cohen APRN-COLLET GLUER Primary Care Provider + Encounter Details Date Type Department Care Team (Late st Contact Info) Description 10/29/2020 [facility] [address] [place] [address] Thais Pichardo MA Social History [...] Telephone Encounter - Thais Pichardo MA - 10/29/2020 10:17 AM EST [employer] called to see if they could gets forms faxed back to them, if Stephanie signed yet. Told will check with Deja and we will get them back Thais Pichardo MA 10/29/20 1017 documented in this encounter Plan of Treatment Upcoming Encounters Date Type Department Care Team (Late st Contact Info) Description 09/05/2025 1:00 PM EDT Office Visit [facility] [address] [address] Jaylan Gray, BUFFER COPPER-COLLET GLUER [address] [place] [address] documented as of this encounter Visit Diagnoses [...] Time PHQ-9 Depression Total Score: 0 09/24/20 20 9:18 AM EST A Body Mass Index follow-up plan has been documented for the patient 08/20/2020 7:19 AM EDT documented as of this encounter Care Teams Fish Processor Relationship Specialty Start Date End Date Jaylan Gray, ALICE-COLLET GLUER [address] [place] [address] PCP - General Nurse Practitioner 05/30/25 documented as of this encounter
--- OUTSIDE RECORDS SUMMARY | 2025-06-25 13:04 | XMS_ITS | Encounter Summary ---
Author Organization [employer] Address [id number] [address] [place] [address] Care Team Providers Care Cook Helper Vegetable Name Role Phone Jaylan Gray APRN-CADWORX PIPING DESIGNER Primary Care Provider + Reason for Visit * Reason Onset Date Comments Med Refill 04/12/2019 Encounter Details Date Type Department Care Team (Late st Contact Info) Description 04/12/2019 Refill [facility] [address] [facility] [place] [address] Karla Moore CMA Mixed diabetic hyperlipidemia associated with type 2 diabetes mellitus ([facility]) Social History Tobacco Use Types Packs/Day Years Used Date Smoking Tobacco: Never Smokeless Tobacco: Never Alcohol Use Standard Drinks/Week Comments No 0 (1 standard drink = 0.6 oz pur e alcohol) PHQ-2 Answer Date Recorded PHQ-2 Score 4 03/13/2019 Childcare Answer Date Recorded Childcare Unknown 04/14/2019 Employment Answer Date Recorded Employment Unknown 04/14/2019 Comments No Sex and Gender Information Value Date Recorded Sex Assigned at Not on file Legal Sex Female 11:55 AM EDT Gender Identity Female 03/21/2020 8:20 PM EDT Sexual Orientation Straight 10/05/2022 8: 20 AM EST documented as of this encounter Miscellaneous Notes * Telephone Encounter - Radha Mancini CMA - 04/12/2019 10:50 AM EDT Patient does not have enough to last the weekend Radha Mancini CMA 04/14/19 0926 documented in this encounter Plan of Treatment Upcoming Encounters Date Type Department Care Team (Late st Contact Info) Description 09/05/2025 1:00 PM EDT Office Visit [facility] [address] [place] [address] Jaylan Gray, METHODS SPECIALIST ENGINEER-CADWORX PIPING DESIGNER [address] [place] [address] documented as of this encounter [...] Assessment Noted Time PHQ-9 Depression Total Score: 4 03/13/20 19 10:00 AM EDT documented as of this encounter Care Teams Cook Helper Vegetable Relationship Specialty Start Date End Date Jaylan Gray, METHODS SPECIALIST ENGINEER-CADWORX PIPING DESIGNER [address] [place] [address] PCP - General Nurse Practitioner 05/30/25 documented as of this encounter
--- OUTSIDE RECORDS SUMMARY | 2025-06-25 13:04 | XMS_ITS ---
Author Organization [facility] Care Team Providers Care Elementary Science Teacher Name Role Phone Yanique, Millicent Unavailable Unavailable Darleen Rivera Unavailable UnavailGuy Lujan Unavailable Unavailable Allergies and adverse reactions No Known Allergies Care Team Name Role Address Phone Organization Dates Guy Bedoya PCP [address] [place], [address], [facility] 04/11/2024 - 04/28/2024 Millicent Chanel [address] [facility], [place], [address], [facility] 04/11/2024 - 04/28/2024 Darleen Short [facility]on [address] [place], [address], [facility] (Cell): [facility] 04/11/2024 - 04/28/2024 Immunizations Immunization Status Vaccine Details Vaccine Code CodeSystem Date Notes Influenza completed Influenza, high-dose, split virus, quadrivalent, injectable, preservative free 197 CVX created date: 04/05/2023 administer ed date: 08/06/2022 Influenza completed Influenza, high-dose, split virus, quadrivalent, injectable, preservative free 197 CVX created date: 05/11/2020 administer ed date: 09/14/2019 TB 1 Step Mantoux (PPD) completed tuberculin skin test; unspecified formulation lotNumber: [id number] expiry: 02/13/2021 Mfg: [employer] Given 0.1 ml Left Forearm intradermally 98 CVX created date: 05/11/2020 consent date: 05/11/2020 administer ed date: 05/11/2020 TB 2 Step Mantoux Skin Test completed tuberculin skin test; unspecified formulation lotNumber: [id number] expiry: 02/12/2025 Mfg: [employer] Given 0.1 ml Left Forearm intradermally Step 1 of Multi-step 98 CVX created date: 04/25/2024 consent date: 04/24/2024 administer ed date: 04/25/2024 Educated by Vaishnavi on 04/24/2024 Read on 04/26/24 by Franny Villatoro per MAR TB 2 Step Mantoux Skin Test completed tuberculin skin test; unspecified formulation Given 0.1 ml Right Forearm intradermally Step 1 of Multi-step 98 CVX created date: 04/13/2024 consent date: 04/13/2024 administer ed date: 04/12/2024 TB 2 Step Mantoux Skin Test completed tuberculin skin test; unspecified formulation lotNumber: [id number] expiry: 04/22/2023 Mfg: [employer] Given 0.1 ml Right Forearm intradermally Step 2 of Multi-step with next step required 98 CVX created date: 04/13/2023 consent date: 04/13/2023 administer ed date: 04/13/2023 Educated by Nikunj Mix on 04/13/2023 Read on 04/15/23 by Nicol Mobley per [facility] TB 2 Step Mantoux Skin Test completed tuberculin skin test; unspecified formulation lotNumber: [id number] expiry: 03/15/2024 Mfg: [employer] Given 0.1 ml Left Forearm intradermally Step 1 of Multi-step with next step required 98 CVX created date: 04/06/2023 consent date: 04/06/2023 administer ed date: 04/06/2023 SARS-COV-2 (COVID-19) completed SARS-COV-2 (COVID-19) vaccine, mRNA, spike protein, LNP, preservative free, 30 mcg/0.3mL dose Step 2 of Multi-step with next step required 208 CVX created date: 04/05/2023 administer ed date: 02/04/2021 SARS-COV-2 (COVID-19) completed SARS-COV-2 (COVID-19) vaccine, mRNA, spike protein, LNP, preservative free, 30 mcg/0.3mL dose Step 1 of Multi-step with next step required 208 CVX created date: 04/05/2023 administer ed date: 01/07/2021 Prevnar 13 completed pneumococcal conjugate vaccine, 13 valent 133 CVX created date: 04/05/2023 administer ed date: 05/28/2021 PPSV 23 completed pneumococcal polysaccharide vaccine, 23 valent lotNumber: [id number] expiry: 01/13/2022 Mfg: PREVNAR 13 Given 0.5 ml Right Deltoid intramuscularly 33 CVX created date: 05/11/2020 consent date: 05/11/2020 administer ed date: 05/16/2020 PPSV 23 completed pneumococcal polysaccharide vaccine, 23 valent 33 CVX created date: 04/05/2023 administer ed date: 06/29/2015 Mental Status Section Date Assessment Total Score Description 04/28/2024 BIMS 15 cognitively int act CAM 0 No delirium ind icated PHQ-9 00 04/17/2024 BIMS 13 cognitively int act CAM 0 No delirium ind icated PHQ-9 00 Problems Problem # Description Date of onset Resolved Date Code CodeSystem Concern Status 1 LIMITATION OF ACTIVITIES DUE TO DISABILITY [address] active 2 MUSCLE WEAKNESS (GENERALIZED) [address] active 3 NEED FOR ASSISTANCE WITH PERSONAL CARE [address] active 4 ATHEROSCLEROTIC HEART DISEASE OF [place] CORONARY ARTERY WITHOUT ANGINA PECTORIS [address] active 5 BODY MASS INDEX [BMI] 33.0-33.9, ADULT [address] active 6 DIFFICULTY IN WALKING, NOT ELSEWHERE CLASSIFIED [address] active 7 INSOMNIA, UNSPECIFIED [address] active 8 METHICILLIN RESISTANT STAPHYLOCOCCUS AUREUS INFECTION THE CAUSE OF DISEASES CLASSIFIED ELSEWHERE [address] active 9 OBESITY, UNSPECIFIED [address] active 10 PRESENCE OF XENOGENIC HEART VALVE [address] active 11 UNSPECIFIED ESCHERICHIA COLI [E. COLI] THE CAUSE OF DISEASES CLASSIFIED ELSEWHERE [address] active 12 UNSPECIFIED OSTEOARTHRITIS, UNSPECIFIED SITE [address] active 13 URINARY TRACT INFECTION, SITE NOT SPECIFIED [address] active 14 PNEUMONIA, UNSPECIFIED ORGANISM [address] active 15 MUSCLE WEAKNESS (GENERALIZED) 023 10/01/[address] completed 16 NEED FOR ASSISTANCE WITH PERSONAL CARE 023 10/01/[address] completed 17 OTHER FATIGUE 023 10/01/[address] completed 18 DIFFICULTY IN WALKING, NOT ELSEWHERE CLASSIFIED 023 10/01/[address] completed 19 HYPERTENSIVE HEART AND CHRONIC KIDNEY DISEASE WITH HEART FAILURE AND STAGE 1 THROUGH STAGE 4 CHRONIC KIDNEY DISEASE, OR UNSPECIFIED CHRONIC KIDNEY DISEASE [address] active 20 BODY MASS INDEX [BMI] 31.0-31.9, ADULT 023 10/01/[address] completed 21 OBESITY, UNSPECIFIED 023 04/10/[address] completed 22 CHRONIC DIASTOLIC (CONGESTIVE) HEART FAILURE [address] active 23 CHRONIC KIDNEY DISEASE, STAGE 3B [address] active 24 DEPRESSION, UNSPECIFIED [address] active 25 ESSENTIAL (PRIMARY) HYPERTENSION [address] active 26 ESTROGEN RECEPTOR POSITIVE STATUS [ER+] [address] active 27 MALIGNANT NEOPLASM OF UPPER-OUTER QUADRANT OF RIGHT FEMALE BREAST [address] active 28 OLD MYOCARDIAL INFARCTION [address] active 29 PRESENCE OF CEREBROSPINAL FLUID DRAINAGE DEVICE [address] active 30 PRIMARY GENERALIZED (OSTEO)ARTHRITIS [address] active 31 SECONDARY MALIGNANT NEOPLASM OF BONE 023 C79.51 ICD-10-CM active 32 TYPE 2 DIABETES MELLITUS WITH DIABETIC CHRONIC KIDNEY DISEASE [address] active 33 UNSPECIFIED FRACTURE OF LEFT PUBIS, SUBSEQUENT ENCOUNTER FOR FRACTURE WITH ROUTINE HEALING 023 10/01/[address] completed 34 BODY MASS INDEX [BMI] 38.0-38.9, ADULT 03/29/[address] completed 35 DIFFICULTY IN WALKING, NOT ELSEWHERE CLASSIFIED 05/21/[address] completed 36 COGNITIVE COMMUNICATION DEFICIT 05/21/[address] completed 37 DYSARTHRIA AND ANARTHRIA 05/21/[address] completed 38 (IDIOPATHIC) NORMAL PRESSURE HYDROCEPHALUS 16985222 SNOMED CT active 39 ANEMIA IN CHRONIC KIDNEY DISEASE 906821066 SNOMED CT active 40 BILATERAL PRIMARY OSTEOARTHRITIS OF KNEE 03/29/[address] completed 41 CARDIAC MURMUR, UNSPECIFIED 03/29/[address] completed 42 CATARACT EXTRACTION STATUS, UNSPECIFIED EYE 07226505 SNOMED CT active 43 CHRONIC KIDNEY DISEASE, STAGE 4 (SEVERE) 03/29/[address] completed 44 CONSTIPATION, UNSPECIFIED 08849041 SNOM[address] CT active 45 GASTRO-ESOPHAGEAL REFLUX DISEASE WITHOUT ESOPHAGITIS 934772358 SNOMED CT active 46 HISTORY OF FALLING [address] active 47 HYPERLIPIDEMIA, UNSPECIFIED 24340135 SNOMED CT active 48 HYPERTENSIVE CHRONIC KIDNEY DISEASE WITH STAGE 1 THROUGH STAGE 4 CHRONIC KIDNEY DISEASE, OR UNSPECIFIED CHRONIC KIDNEY DISEASE 04/02/[address] completed 49 INSOMNIA, UNSPECIFIED 04/10/[address] completed 50 LEFT BUNDLE-BRANCH BLOCK, UNSPECIFIED 03/29/[address] completed 51 SALES PROFESSIONAL BILINGUAL (CURRENT) USE OF INSULIN 339710843 SNOMED CT active 52 MAJOR DEPRESSIVE DISORDER, SINGLE EPISODE, UNSPECIFIED 03/29/[address] completed 53 MIXED HYPERLIPIDEMIA 03/29/[address] completed 54 MUSCLE WEAKNESS (GENERALIZED) 05/21/[address] completed 55 OBESITY, UNSPECIFIED 03/29/[address] completed 56 OBSTRUCTIVE SLEEP APNEA (ADULT) (PEDIATRIC) 03/29/[address] completed 57 OTHER PROBLEMS RELATED TO LIFE MANAGEMENT DIFFICULTY 05/21/[address] completed 58 PERIPHERAL VASCULAR DISEASE, UNSPECIFIED 023938343 SNOMED CT active 59 PERSONAL HISTORY OF TRANSIENT ISCHEMIC ATTACK (TIA), AND CEREBRAL INFARCTION WITHOUT RESIDUAL DEFICITS 75574135 SNOMED CT active 60 RADICULOPATHY, LUMBAR REGION 03/29/[address] completed 61 SPONDYLOSIS WITHOUT MYELOPATHY OR RADICULOPATHY, LUMBAR REGION 241501598 SNOMED CT active 62 STRESS INCONTINENCE (FEMALE) (MALE) 03/29/[address] completed 63 TYPE 2 DIABETES MELLITUS WITH DIABETIC NEUROPATHY, UNSPECIFIED 663360322 SNOMED CT active 64 TYPE 2 DIABETES MELLITUS WITH OTHER SPECIFIED COMPLICATION 03/29/[address] completed 65 UNSPECIFIED ASTHMA, UNCOMPLICATED 070584487 SNOMED CT active 66 VITAMIN D DEFICIENCY, UNSPECIFIED 04/10/[address] completed Reason for Referral No Reasons for Referral Entered Social History Social History Observation Description Start Date End Date Code Code System Current Smoking Status Tobacco smoking consumption unknown 958071764 SNOMED CT Sex Assigned At Female 1945 [address]-8 [facility] Gender Identity Vital Signs Code Code System Vitals Name Values and Units Timing Information 9279-1 [facility] Respiratory Rate Value=16.0 Units=/m in 04/28/2024 46639-1 [facility] O2 % BldC Oximetry Value=93.0 Units= % 04/28/2024 8462-4 [facility] Blood Pressure-Diastolic Value=52 Un its=mmHg 04/28/2024 8480-6 [facility] Blood Pressure-Systolic Vomoc=588 Un its=mmHg 04/28/2024 8310-5 [facility] Body Temperature Value=97.8 Units= F 04/28/2024 8867-4 [facility] Heart rate Value=67.0 Units=/min 2339-0 [facility] Blood Sugar Nixem=196.0 Units=mg/dL 04/28/2024 73231-7 [facility] Pain Level Value=0.0 04/28/2024 78346-6 [facility] Weight Xprhk=018.2 Units=Lbs 10/2024 8302-2 [facility] Height Value=65.0 Units=Inches 04/11/2024
--- OUTSIDE RECORDS SUMMARY | 2025-06-25 13:04 | XMS_ITS ---
[facility] Care Plan Created on: June 13, 2025 Cuca Dee : 1945 Sex: Female Author Organization [employer] Address [address] [place] [address] [address] [place] [address] Phone Health Concerns Health Status CKD 4 Health Concerns None
--- OUTSIDE RECORDS SUMMARY | 2025-06-25 13:05 | XMS_ITS | Encounter Summary ---
Author Organization [facility] Address [facility] [id number] [address] [place] [address] Care Team Providers Care Home Theater Experience Expert Name Role Phone Jaylan Gray LATHE MACHINE OPERATOR-[facility] Primary Care Provider + Reason for Visit * Reason Comments Med Refill Encounter Details Date Type Department Care Team (Late st Contact Info) Description 07/02/2020 Refill [facility] [address] [place] [address] Stephanie Ley, LATHE MACHINE OPERATOR-[facility] [address] LEFT PM 05/14/25 [place] [address] 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 mellitus ([facility]) Social History Tobacco Use Types Packs/Day Years [...] have Coronavirus / COVID-19? No / Unsure 06/30/2020 10:51 AM EDT documented as of this encounter Plan of Treatment Upcoming Encounters Date Type Department Care Team (Late st Contact Info) Description 09/05/2025 1:00 PM EDT Office Visit [facility] [address] [place] [address] Jaylan Gray, LATHE MACHINE OPERATOR-MANAGER SUPPLY CHAIN PLANNING [address] [place] [address] documented as of this encounter Visit Diagnoses Diagnosis 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 mellitus ([facility]) documented in this encounter Additional Health [...] documented as of this encounter Care Teams Home Theater Experience Expert Relationship Specialty Start Date End Date Jaylan Gray, LATHE MACHINE OPERATOR-MANAGER SUPPLY CHAIN PLANNING [address] [place] [address] PCP - General Nurse Practitioner 05/30/25 documented as of this encounter
--- OUTSIDE RECORDS SUMMARY | 2025-06-25 13:05 | XMS_ITS | Encounter Summary ---
Author Organization [facility] Address [address] [facility] [place] [address] Care Team Providers Care Concrete Polisher Name Role Phone Stephanie Ley APRN, CNP Primary Care Prov ider Encounter Details Date Type Department Care Team (Late st Contact Info) Description 01/13/2023 Orders Only [facility] [address] [place] [address] Rocio Moya Social History Tobacco Use Types Packs/Day Years Used Date Smoking Tobacco: Never Alcohol Use Standard Drinks/Week Comments No 0 (1 standard drink = 0.6 oz pur e alcohol) occaisional Comments Unknown Sex and Gender Information Value Date Recorded Sex Assigned at Not on file Legal Sex Female 9:58 PM EST Gender Identity Not on file Sexual Orientation Not on file documented as of this encounter Plan of Treatment Not on file documented as of this encounter Visit Diagnoses Not on filedocumented in this encounter Care Teams Concrete Polisher Relationship Specialty Start Date End Date Stephanie Ley APRN - CNP PCP - General 01/15/23 documented as of this encounter
--- OUTSIDE RECORDS SUMMARY | 2025-06-25 13:05 | XMS_ITS | Encounter Summary ---
Author Organization [facility] tem Address [id number] [address] [place] [address] Care Team Providers Care Bobbin Cleaning Machine Operator Name Role Phone Jaylan Gray APRN-BUTADIENE COMPRESSOR OPERATOR Primary Care Provider + Encounter Details Date Type Department Care Team (Late st Contact Info) Description 09/02/2022 Telephone [facility] [address] [facility] [place] [address] Thais Pichardo MA Social History Tobacco Use Types Packs/Day Years Used Date Smoking Tobacco: Never Smokeless Tobacco: Never Alcohol Use Standard Drinks/Week Comments No 0 (1 standard drink = 0.6 oz pur e alcohol) Social Connection and Isolation Panel [NHANES] A nswer Date Recorded Frequency of Communication with Friends and Fami ly Not on file 05/26/2022 Frequency of Social Gatherings with Friends and Family Not on file 05/26/2022 Attends Catholic Services Not on file 05/26 Do you belong to any clubs o r organizations such as tenriism groups, unions, fraternal or athletic groups, or school groups? No 05/26/2022 How often do you attend meet ings of the clubs or organizations you belong to? Never 05/26/2022 Are you , , di vorced, , never , or living with a partner? Never 05/26/2022 AUDIT-C Answer Date Recorded Q1: How often do you have a drink containing alcohol? Never 05/26/2022 Q2: How many drinks containi ng alcohol do you have on a typical day when you are drinking? Patient does not drink Q3: How often do you have si x or more drinks on one occasion? Never 05/26/2022 PHQ-2 Answer Date Recorded Total Score 0 08/06/2022 Childcare Answer Date Recorded Do problems getting child ca re make it difficult for you to work or study? No 05/26/2022 Employment Answer Date Recorded Do you need help finding a [employer] [facility] career center and/or a training program? No 05/26/2022 Purpose - Life Answer Date Recorded I have a purpose and direction in my life. Agree 05/26/2022 Comments No Sex and Gender Information Value [...] have Coronavirus / COVID-19? No / Unsure 09/02/2022 9:43 AM EDT documented as of this encounter Miscellaneous Notes * Telephone Encounter - Thais Pichardo MA - 09/02/2022 4:20 PM EDT ----- Message from KAIDEN Werner sent at 09/02/2022 2:39 PM EDT ----- Abnormal result. Please inform patient I have reviewed her labs. Her blood sugar was 42 when drawn at 9:51 am. Please confirm her she has rechecked her blood sugar and has improved. All other labs are her baseline normal for her. * Telephone Encounter - Thais Pichardo MA - 09/02/2022 4:20 PM EDT Called and spoke to renee-Hasn't been checking sugars, out of strips and waiting for dexcom reader refill, she was trying to contact [facility] office to get strips in meantime and couldn't get aholdof anyone, they finally called in last night. And she has appt with them next week. She knew sugar was low but needed to get labs done, renee gave her a piece of halloween candy after to make her sugar come up (haha). She feels fine tho. documented in this encounter Plan of Treatment Upcoming Encounters Date Type Department Care Team (Late st Contact Info) Description 09/05/2025 1:00 PM EDT Office Visit [facility] [address] [place] [address] Jaylan Gray, CONTINUOUS PICKLING LINE PICKLER HELPER-BUTADIENE COMPRESSOR OPERATOR [address], [facility] [address] [place] [address] documented as of this encounter Visit Diagnoses Not on filedocumented in this encounter Additional Health Concerns Infection Onset Date Last Indicated Resolved Time COVID-19 Rule-Out 10/05/2022 10/05/2022 10/05/2022 4:00 AM [...] Noted Time PHQ-9 Depression Total Score: 0 08/06/20 1:17 PM EDT A Body Mass Index follow-up plan has been documented for the patient 08/10/2022 7:14 AM EDT documented as of this encounter Care Teams Bobbin Cleaning Machine Operator Relationship Specialty Start Date End Date Jaylan Gray, CONTINUOUS PICKLING LINE PICKLER HELPER-BUTADIENE COMPRESSOR OPERATOR [address] [place] [address] PCP - General Nurse Practitioner 05/30/25 documented as of this encounter
--- OUTSIDE RECORDS SUMMARY | 2025-06-25 13:05 | XMS_ITS | Encounter Summary ---
Author Organization [facility] tem Address [id number] [address] [place] [address] Care Team Providers Care [employer] Name Role Phone Jaylan Gray APRN-SUPERVISOR PARKING LOT Primary Care Provider + Encounter Details Date Type Department Care Team (Late st Contact Info) Description 06/02/2022 [facility]phone [facility] [address] [facility] [place] [address] Leslie Johnson CMA Social History [...] and Family Not on file 05/26/2022 Attends Confucianist Services Not on file 05/26 Do you belong to any clubs o r organizations such as baptist groups, unions, fraternal or athletic groups, or [...] PHQ-2 Answer Date Recorded Total Score 0 05/26/2022 Childcare Answer Date Recorded Do problems getting child ca re make it difficult for you to work or study? No 05/26/2022 Employment Answer Date Recorded Do you need help finding a [employer] career center and/or a training program? No [...] or suspected to have Coronavirus / COVID-19? Yes 06/02/2022 9:03 AM EDT documented as of this encounter Miscellaneous Notes * Telephone Encounter - Leslie Johnson CMA - 06/02/2022 10:41 AM EDT Karla from [facility] called, said she had a successful PT evaluation with the pt today,and they will be working in the home with patient. * Telephone Encounter - KAIDEN Werner - 06/02/2022 10:41 AM EDT Thank you documented in this encounter Plan of Treatment Upcoming Encounters Date Type Department Care Team (Late st Contact Info) Description 09/05/2025 1:00 PM EDT Office Visit [facility] - Family Medicine [address] [place] [address] Jaylan Gray, ALICE-SUPERVISOR PARKING LOT [address], [address] [place] [address] documented as of this encounter Visit Diagnoses Not on filedocumented in this encounter Additional Health Concerns Infection Onset Date Last Indicated Resolved Time COVID-19 Positive 05/14/2022 05/26/2022 06/16/2022 11:13 PM [...] Noted Time PHQ-9 Depression Total Score: 0 05/26/20 22 2:00 PM EDT A Body Mass Index follow-up plan has been documented for the patient 05/19/2022 5:33 PM EDT documented as of this encounter Care Teams Vp [employer] Relationship Specialty Start Date End Date Jaylan Gray, WILDLIFE CONTROL OPERATOR-SUPERVISOR PARKING LOT [address] [place] [address] PCP - General Nurse Practitioner 05/30/25 documented as of this encounter
--- OUTSIDE RECORDS SUMMARY | 2025-06-25 13:05 | XMS_ITS | Clinical Summary ---
Author Organization [facility] Address [address], [address] [place] [address] Care Team Providers Care Arts And Crafts Instructor Name Role Phone LeyStephanie haines Estrella PROGRAM CLERK - SHUTTLE VAN DRIVER Primary Care Prov ider Allergies No known active allergies Medications hydrochlorothia zide (HYDRODIURIL) 25 MG tablet Take 1 tablet by mouth daily Active metoprolol (LOPRESSOR) 50 MG tablet Take 1 tablet by mouth 2 times daily Active aspirin 81 MG chewable tablet Take 1 tablet by mouth daily 30 tablet 3 2 Active clopidogrel (PLAVIX) 75 MG tablet Take 1 tablet by mouth daily 30 tablet 3 2 Active oxybutynin (DITROPAN) 5 MG tablet Take 1 tablet by mouth daily Active sertraline (ZOLOFT) 100 MG tablet Take 1 tablet by mouth daily Active amLODIPine (NORVASC) 5 MG tablet amlodipine 5 mg tablet TAKE 1 TABLET (5 MG TOTAL) BY MOUTH IN THE MORNING. Active letrozole (FEMARA) 2.5 MG tablet Take 1 tablet by mouth daily 3 Active gabapentin (NEURONTIN) 300 MG capsule Take 1 capsule by mouth 3 times daily. Active atorvastatin (LIPITOR) 20 MG tablet TAKE 1 TABLET BY MOUTH EVERY DAY EVENING 4 Active traZODone (DESYREL) 100 MG tablet Take 1 tablet by mouth nightly 4 Active Continuous Glucose Ice Cream Freezer Assistant (DEXCOM G7 COMPLETIONS MANAGER) DEVIIndications :Inadequately controlled diabetes mellitus (HCC) Continuous glucose snowsport instructor, E11.65 1 each 4 Active insulin glargine (LANTUS SOLOSTAR) 100 UNIT/ML injection pen 20 units at bedtime okay to substitute 5 Adjustable Dose Pre-filled Pen Syringe 3 5 Active lisinopril (PRINIVIL;ZESTR IL) 5 MG tablet Take 1 tablet by mouth Active insulin aspart (NOVOLOG) 100 UNIT/ML injection pen 8-12 units at each meals 10 Adjustable Dose Pre-filled Pen Syringe 3 5 Active Continuous Glucose Sensor (DEXCOM G7 SENSOR) MISC Change sensor every 10 days, E11.65 9 each 3 5 Active Active Problems Problem Noted Date Diagnosed Date RAIN (acute kidney injury) 01/13/2023 Anemia 01/13/2023 History of blood transfusion 01/13/2023 Type 2 diabetes mellitus wit h diabetic neuropathy, with long-term current use of insulin 01/13/2023 Tremors of nervous system 01/13/2023 Family history of coronary arteriosclerosis- pre mature CAD 01/13/2023 CHELSEA (obstructive sleep apnea) nonadherent with c pap 01/13/2023 CKD (chronic kidney disease) 01/13/2023 Coronary artery disease invo lving [place] coronary artery without angina pectoris 01/13/2023 S/P angioplasty with stent 12/07/2022 Severe aortic valve stenosis 10/13/2022 NSTEMI (non-ST elevated myocardial infarction) 1 11/29/2021 Community acquired bacterial pneumonia 2 Family History Medical History Relation Name Comments Heart Attack Father Relation Name Status Comments Father Social History Tobacco Use Types Packs/Day Years Used Date Smoking Tobacco: Never Passive Smoke Exposure: Never Smokeless Tobacco: Never Tobacco Cessation:Counseling Given: Yes Alcohol Use Standard Drinks/Week Comments No 0 (1 standard drink = 0.6 oz pur e alcohol) occaisional Comments No Sex and Gender Information Value Date Recorded Sex Assigned at Not on file Legal Sex Female 9:58 PM EST Gender Identity Not on file Sexual Orientation Not on file Last Filed Vital Signs Vital Sign Reading Time Taken Comments Blood Pressure 143/76 12/12/2024 1:46 PM EST Pulse 72 07/05/2024 4:15 PM EDT Temperature 36.7 C (98 F) 01/13/2023 7:13 AM EST Respiratory Rate 18 01/13/2023 7:13 AM EST Oxygen Saturation 94% 12/12/2024 1:42 PM EST Inhaled Oxygen Concentration - - Weight 92.1 kg (203 lb) 04/05/2024 9:19 AM EDT Height 165.1 cm (5' 5 ) 12/12/2024 1:42 PM EST Body Mass Index 33.78 04/05/2024 9:19 AM EDT Plan of Treatment Health Maintenance Due Date Last Done Comments Depression Screen 1958 Diabetic Alb to Cr ratio (uACR) test 1964 Hepatitis C screen 1964 DTaP/Tdap/Td vaccine (1 - Tdap) 1965 Shingles vaccine (1 of 2) 1996 Respiratory Syncytial Virus (RSV) or age 60 yrs+ (1 - 1-dose 75+ series) 2021 Lipids 03/26/2022 03/26/2021 GFR test (Diabetes, CKD 3-4, OR last GFR 15-59) 12/10/2023 12/10/2022, 12/09/2022, 12/08/2022, Additional history exists COVID-19 Vaccine ( - 2023- season) 2024 02/04/2021, 01/07/2021 Annual Wellness Visit (Medicare Advantage) 11/15/2024 Flu vaccine (#1) 2025 08/28/2024, , 08/06/2022, Additional history exists Pneumococcal 50+ years Vaccine Completed 05/28/2021, 05/16/2020, 07/10/2015, Additional history exists DEXA (modify frequency per FRAX score) Completed 08/19/2022, 03/06/2019 Hepatitis A vaccine Aged Out No longe r eligible based on patient's age to complete this topic Hepatitis B vaccine Aged Out No longe r eligible based on patient's age to complete this topic Hib vaccine Aged Out No longer eligi ble based on patient's age to complete this topic Meningococcal (ACWY) vaccine Aged Out No longer eligible based on patient's age to complete this topic Meningococcal B vaccine Aged Out No l onger eligible based on patient's age to complete this topic Polio vaccine Aged Out No longer elig ible based on patient's age to complete this topic Procedures Procedure Name Priority Date/Time Associated Diagnosis Comments BASIC METABOLIC PANEL Routine 12/10/2022 9:28 AM EST LIPID PANEL Routine 03/26/2021 6:40 AM EDT from Last 3 Months or Most Recently Relevant to Health Maintenance Results * (ABNORMAL) Basic Metabolic Panel (12/10/2022 9:28 AM EST) Glucose 131(H) 70 - 99 mg/dL 12/10/2022 9:28 AM EST [facility] BUN 17 8 - 23 mg/dL 12/10/2022 9:28 AM EST [facility] Creatinine 1.04(H) 0.50 - 0.90 mg/dL 12/10/2022 9:28 AM EST [facility] Est, Glom Filt Rate 56(L) >60 mL/min/1. 73m2 12/10/2022 9:28 AM EST [facility] Comment: These results are not intended for [...] following therapy that affects renal tubular secretion. Calcium 9.0 8.6 - 10.4 mg/dL 12/10/2022 9:28 AM EST [facility] Sodium 136 135 - 144 mmol/L 12/10/2022 9:28 AM EST [facility] Potassium 4.3 3.7 - 5.3 mmol/L 12/10/2022 9:28 AM EST [facility] Chloride 105 98 - 107 mmol/L 12/10/2022 9:28 AM EST [facility] CO2 20 20 - 31 mmol/L 12/10/2022 9:28 AM EST [facility] Anion Gap 11 9 - 17 mmol/L 12/10/2022 9:28 AM EST [facility] BLOOD SPECIMEN / Unknown 12/10/2022 9:28 AM EST 12/10/2022 10:02 AM EST Rita Leos PROGRAM CLERK - SHUTTLE VAN DRIVER CHEMISTRY ORDERAB LES Final Result Performing Organization Address [facility] Co de Phone Number [employer] [id number] [place] [address] * (ABNORMAL) Lipid Panel (03/26/2021 6:40 AM EDT) Cholesterol 117 <200 mg/dL 03/26/2021 6:40 AM EDT [facility] Comment: Cholesterol Guidelines: <200 Desirable 200-240 Borderline >240 Undesirable HDL 39(L) >40 mg/dL 03/26/2021 6:40 AM EDT [facility] Comment: HDL Guidelines: <40 Undesirable 40-59 Borderline >59 Desirable LDL Cholesterol 62 0 - 130 mg/dL 03/26/2021 6:40 AM EDT [facility] Comment: LDL Guidelines: <100 Desirable 100-129 Near to/above Desirable 130-159 Borderline >159 Undesirable Direct (measured) LDL and calculated LDL are not interchangeable tests. Chol/HDL Ratio 3.0 <5 03/26/2021 6:40 AM EDT [facility] Comment: Triglycerides 79 <150 mg/dL 03/26/2021 6:40 AM EDT [facility] Comment: Triglyceride Guidelines: <150 Desirable 150-199 Borderline 200-499 High >499 Very high Based on AHA Guidelines for fasting triglyceride, August 2012. VLDL NOT REPORTED 1 - 30 mg/dL 03/26/2021 6:40 AM EDT [facility] 03/26/2021 6:40 AM EDT 03/26/2021 7:38 AM EDT Michael Duarte DO CHEMISTRY ORDERABLES Final Resu lt Performing Organization Address City/[facility]/ZIP Co de Phone Number [facility] [address] [place] [address], [facility] [phone] [facility] [address] [place] [address], [facility] [phone] from Last 3 Months or Most Recently Relevant to Health Maintenance Insurance [facility] MEDICARE on file Advance Directives Documents on File Type Date Recorded Patient Channel Manager Expl anation ACP-Advance Directive 12/14/2022 2:27 PM * Full Code (Latest Code Status on File) Date Activated Date Inactivated Comments 12/07/2022 11:24 AM 12/11/2022 1:10 PM * Full Code Date Activated Date Inactivated Comments 11/24/2022 11:19 AM 11/25/2022 2:46 AM * Full Code Date Activated Date Inactivated Comments 09/28/2022 4:15 AM 09/30/2022 6:37 PM * Full Code Date Activated Date Inactivated Comments 10/15/2014 1:49 PM 10/15/2014 8:39 PM * Full Code Date Activated Date Inactivated Comments 10/15/2014 7:52 AM 10/15/2014 1:49 PM Care Teams Arts And Crafts Instructor Relationship Specialty Start Date End Date Stephanie Ley, ALICE - SHUTTLE VAN DRIVER PCP - General 01/15/23
--- OUTSIDE RECORDS SUMMARY | 2025-06-25 13:05 | XMS_ITS | Encounter Summary ---
Author Organization [facility] tem Address [id number] [address] [place] [address] Care Team Providers Care Shank Maker Name Role Phone [facility]lan [facility] Primary Care Provider + Reason for Visit * Reason Comments Med Change Request Encounter Details Date Type Department Care Team (Late st Contact Info) Description 03/18/2022 Refill [facility] [address] [place] [address] Stephanie Ley, [facility] [address] LEFT PM 05/14/25 [place] [phone] Mixed diabetic hyperlipidemia associated with type 2 diabetes mellitus ([facility]-HCC) Social History Tobacco Use Types Packs/Day Years Used Date Smoking Tobacco: Never Smokeless Tobacco: Never Alcohol Use Standard Drinks/Week Comments No 0 (1 standard drink = 0.6 oz pur e alcohol) PHQ-2 Answer Date Recorded Total Score 0 03/11/2022 Childcare Answer Date Recorded Childcare Unknown 04/14/2019 [...] Exposure Response Date Recorded In the last 10 days, have yo u been in contact with someone who was confirmed or suspected to have Coronavirus/COVID-19? No / Unsure 03/11/2022 1:51 PM EDT documented as of this encounter Plan of Treatment Upcoming Encounters Date Type Department Care Team (Late st Contact Info) Description 09/05/2025 1:00 PM EDT Office Visit [facility] Medicine [address] [place] [address] Jaylan Gray, SCIENCE LIAISON-CONVEYOR MECHANIC [address], [address] [place] [address] documented as of this encounter Visit Diagnoses [...] Noted Time PHQ-9 Depression Total Score: 0 03/11/20 2:09 PM EDT A Body Mass Index follow-up plan has been documented for the patient 03/14/2022 8:01 PM EDT documented as of this encounter Care Teams Shank Maker Relationship Specialty Start Date End Date Jaylan Gray, SCIENCE LIAISON-CONVEYOR MECHANIC [address] [place] [address] PCP - General Nurse Practitioner 05/30/25 documented as of this encounter
--- OUTSIDE RECORDS SUMMARY | 2025-06-25 13:05 | XMS_ITS | Encounter Summary ---
Author Organization [employer] [facility] tem Address [id number] [address] [place] [address] Care Team Providers Care Offset Duplicating Machine Operator Name Role Phone Jaylan Gray APRN-BRAZE OPERATOR Primary Care Provider + Reason for Visit * Reason Onset Date Comments elevated troponin 11/09/2024 Encounter Details Date Type Department Care Team (Late st Contact Info) Description 11/09/2024 Telephone [facility] [address] [place] [phone] Hyacinth Matute elevated troponin Social History Tobacco Use Types Packs/Day Years Used Date Smoking Tobacco: Never Smokeless Tobacco: Never Alcohol Use Standard Drinks/Week Comments No 0 (1 standard drink = 0.6 oz pur e alcohol) [facility] Utilities Answer Date Recorded In the past 12 months has [employer] electric, gas, oil, or water company threatened [...] often do you attend chur ch or pentecostal services? More than 4 times per year [...] 10/28/2024 PHQ-2 Answer Date Recorded Total Score 7 10/28/2024 [facility] of Occupat ional Health - Occupational Stress [...] Recorded Do you need help finding a [facility] career center and/or a training program? No 10/28/2024 Hunger Screening Answer Date Recorded Within the past 12 months we worried whether our food would run out before we got money to buy more. Never True 11/09/2024 Within the past 12 months th e food we bought just didn't last and we didn't have money to get more. Never True 11/09/2024 Purpose - Life Answer Date Recorded I have a purpose and direction in my life. Agree 10/28/2024 Comments No Sex and Gender Information Value Date Recorded Sex Assigned at Not on file Legal Sex Female 11:55 AM EDT Gender Identity Female 03/21/2020 8:20 PM EDT Sexual Orientation Straight 10/05/2022 8: 20 AM EST documented as of this encounter Functional Status documented as of this encounter Miscellaneous Notes * Telephone Encounter - Hyacinth Matute - 11/09/2024 4:34 AM EST Contract: [id number] [phone] [facility] [address] Pike re elevated troponin Secure chat sent to Dr De Paz documented in this encounter Plan of Treatment Upcoming Encounters Date Type Department Care Team (Late st Contact Info) Description 09/05/2025 1:00 PM EDT Office Visit [facility] Medicine [address] [place] [address] Jaylan Gray, CENTRAL OFFICE OPERATOR SUPERVISOR-BRAZE OPERATOR [address], [facility] [address] [place] [address] documented as of this encounter Visit Diagnoses Not on filedocumented in this encounter Additional Health Concerns Infection Onset Date Last Indicated Resolved Time COVID-19 Rule-Out 11/09/2024 11/09/2024 11/09/2024 7:48 AM EST Respiratory Rule-Out 02/12/2025 02/12/2025 025 1:47 PM EDT Assessment Noted Time PHQ-9 Depression Total Score: 7 10/28/20 24 5:21 AM EST A Body Mass Index follow-up plan has been documented for the patient 02/09/2024 2:20 PM EDT documented as of this encounter Care Teams Offset Duplicating Machine Operator Relationship Specialty Start Date End Date Jaylan Gray, CENTRAL OFFICE OPERATOR SUPERVISOR-BRAZE OPERATOR [address] [place] [address] PCP - General Nurse Practitioner 05/30/25 documented as of this encounter
--- OUTSIDE RECORDS SUMMARY | 2025-06-25 13:05 | XMS_ITS | Encounter Summary ---
Author Organization [facility] tem Address [id number] [address] [place] [address] Care Team Providers Care Rig Manager Name Role Phone Jaylan Gray APRN-PARA OPERATOR Primary Care Provider + Encounter Details Date Type Department Care Team (Late st Contact Info) Description 01/19/2023 Orders Only [facility] [address] [place] [phone] External, Scanning Provider Social History Tobacco Use [...] often do you attend chur ch or confucianist services? More than 4 times per year 10/05/2022 Do you belong to any clubs o r organizations such as zoroastrian groups, unions, fraternal or athletic groups, or [...] Answer Date Recorded Total Score 13 10/05/2022 [facility] of Occupat ional Health - Occupational [...] Recorded Do you need help finding a [facility] career center and/or a training program? [...] PM EST documented as of this encounter Plan of Treatment Upcoming Encounters Date Type Department Care Team (Late st Contact Info) Description 09/05/2025 1:00 PM EDT Office Visit [facility] Medicine [address] [place] [address] Jaylan Gray, MOBILE HEAVY EQUIPMENT OPERATOR-PARA OPERATOR [address], [address] [place], [place] [id number] documented as of this encounter Procedures Procedure Name Priority Date/Time Associated Diagnosis Comments CT CTA ABD AND PELVIS Routine 01/19/2023 CT HEART W/WO DYE; STRUCT MORPH Routine 01/19/2023 documented in this encounter Results * CT HEART W/WO DYE; STRUCT MORPH (01/19/2023) us Scanning Provider External [facility] Final Result MANUALLY TRANSCRIBED RESULTS * CT angiogram abdomen and pelvis (01/19/2023) Anatomical Region Laterality Modality Body, Abdomen, Body Covera N/A Compu collin Tomography us Scanning Provider External IMG CT ORDERABLES Fin al Result documented in this encounter Visit Diagnoses [...] documented as of this encounter Care Teams Rig Manager Relationship Specialty Start Date End Date Jaylan Gray, MOBILE HEAVY EQUIPMENT OPERATOR-PARA OPERATOR [address] [place] [address] PCP - General Nurse Practitioner 05/30/25 documented as of this encounter
--- OUTSIDE RECORDS SUMMARY | 2025-06-25 13:05 | XMS_ITS | Encounter Summary ---
Author Organization [employer] s tem Address [facility] [id number] [address] [place] [address] Care Team Providers Care Butane Compressor Operator Name Role Phone Jaylan Gray APRN-CNC OPERATOR MACHINIST Primary Care Provider + Reason for Visit * Reason Onset Date Comments Transition Of Care 10/31/2024 Encounter Details Date Type Department Care Team (Late st Contact Info) Description 10/31/2024 [facility] [address] [place] [phone] Florencia Bradley, tractor operator laser leveling Of Care Social History Tobacco Use Types Packs/Day Years Used Date Smoking Tobacco: Never Smokeless Tobacco: Never Alcohol Use Standard Drinks/Week Comments No 0 (1 standard drink = 0.6 oz pur e alcohol) [facility] Utilities Answer Date Recorded In the past 12 months has [employer] electric, gas, oil, or water company threatened to shut off services in your home? No 10/28/2024 Social Connection and Isolat ion Panel [NHANES] Answer Date Recorded In a typical week, how many times do you talk on the phone with family, friends, or neighbors? Never 10/28/2024 How often do you get togethe r with friends or relatives? More than three times a week 10/28/2024 How often do you attend chur ch or cheondoism services? More than 4 times per year 10/28/2024 Do you belong to any clubs o r organizations such as mormon groups, unions, fraternal or athletic groups, or [...] Answer Date Recorded Total Score 7 10/28/2024 [facility]at ional Health - [...] medical appointments or from getting medications? No 10/15 In the past 12 months, has l ack of transportation kept you from meetings, work, or from getting things needed for daily living? No 10/28/2024 Housing Instability Answer Date Recorde d Are you worried or concerned that in the next two months you may not have stable housing that you own, rent or stay in as a part of a household? No 10/28/2024 Childcare Answer Date Recorded Do problems getting child ca re make it difficult for you to work or study? No 10/28/2024 Employment Answer Date Recorded Do you need help finding a [facility] career center and/or a training program? No 10/28/2024 Hunger Screening Answer Date Recorded Within the past 12 months we worried whether our food would run out before we got money to buy more. Never True 10/28/2024 Within the past 12 months th e food we bought just didn't last and we didn't have money to get more. Never True 10/28/2024 Purpose - Life Answer Date Recorded I [...] encounter Miscellaneous Notes * Telephone Encounter - Florencia Bradley RN - 10/31/2024 10:17 AM EST Transition of Care (*required) *Additional Questions/Concerns Requiring PCP Follow-Up: Patient's hospital follow up appt with you is scheduled for 11/22/24 For TCM, she would need appt on/before 11/12/24 This documentation is being used for Transition of Care purposes: Yes Goal: Patient will demonstrate a safe transition from hospital to home Diagnosis on Discharge: Acute cystitis Hypoglycemia Discharge Specialty: Urology *[facility] Discharging Facility: [facility] Date of Facility Discharge: Admitted: 10/27/24 Discharged: 10/30/24 Date of Interactive Contact and Name of Eclectic Doctor: 10/31/24 @ 1017 am: no answer, left message to return call 10/31/24 @ 224 pm: spoke to patient's daughter, Ileana, and TCM completed *Medication Review Completed: Pending provider review Did review changes to medications START taking: CEPHalexin (KEFLEX) STOP taking: metoprolol succinate XL 25 mg 24 hr tablet (TOPROL XL) Medication Reconciliation Questions/Concerns: *Follow Up Appointments with Providers: Primary: Stephanie Ley APRN-CNC OPERATOR MACHINIST: 11/22/23 Specialty: Urogynecology: referral sent by hospital Review of Pending Lab/Diagnostic Tests and Plan for Completion: Assessment and Support of Treatment Regimen Adherence and Medication Management: Lives with daughter who provides assistance as needed and transportation Denies pain or burning with urination Back pain resolved Denies flank pain Patient has no bladder control and uses Depends or PureWick Voiding clear yellow urine without clot or sediment Denies fever, chills BS: < 200 No further episodes of hypoglycemia Follows diabetic diet Denies new symptoms Education Provided by ACN to Support Self-Management, Independent Living and ADLs: Discharge instructions reviewed Communication with Home Health Agencies and Other Services Utilized/Needed by the Patient: [facility] SOC: family declining home care * Telephone Encounter - Cinda Garrison - 10/31/2024 10:17 AM EST Scheduled 11/22 can't get her in ant sooner completely booked documented in this encounter Plan of Treatment Upcoming Encounters Date Type Department Care Team (Late st Contact Info) Description 09/05/2025 1:00 PM EDT Office Visit [facility] Internal Medicine - Family Medicine [address] [place] [address] Jaylan Gray, CARGO MATE-CNC OPERATOR MACHINIST [address], [place] [address] documented as of this encounter Visit Diagnoses [...] documented as of this encounter Care Teams Butane Compressor Operator Relationship Specialty Start Date End Date Jaylan Gray, CARGO MATE-CNC OPERATOR MACHINIST [address] [place] [address] PCP - General Nurse Practitioner 05/30/25 documented as of this encounter
--- OUTSIDE RECORDS SUMMARY | 2025-06-25 13:05 | XMS_ITS | Encounter Summary ---
Author Organization [facility] Address [facility] [id number] [address] [place] [address] Care Team Providers Care Casino Gaming Worker Name Role Phone Jaylan Gray SENSITOMETRIST-POWDER COMPOUNDER Primary Care Provider + Reason for Visit * Reason Comments Med Refill Encounter Details Date Type Department Care Team (Late st Contact Info) Description 06/20/2020 Refill [facility] [address] [place] [address] Stephanie Ley, SENSITOMETRIST-[facility] [address] PM 05/14/25 [place] [phone] Type 2 DM with CKD stage 4 and hypertension (CMS-HCC) (Primary Dx); Mixed hyperlipidemia Social History Tobacco Use Types [...] have Coronavirus / COVID-19? No / Unsure 05/28/2020 9:18 AM EDT documented as of this encounter Plan of Treatment Upcoming Encounters Date Type Department Care Team (Late st Contact Info) Description 09/05/2025 1:00 PM EDT Office Visit [facility] - Family Medicine [address] [place] [address] Jaylan Gray, SENSITOMETRIST-POWDER COMPOUNDER [address] [place] [address] documented as of this encounter Visit Diagnoses Diagnosis Type 2 DM with CKD stage 4 and hypertension ([facility]-HCC)- Primary Mixed hyperlipidemia documented in this encounter Additional [...] 08/12/2024 3:20 AM EDT COVID-19 Positive 08/12/2024 08/12/202409/02/2024 11:12 PM EDT COVID-19 Rule-Out 11/09/2024 11/09/2024 11/09/2024 7:48 AM EST Respiratory Rule-Out 02/12/2025 02/12/2025 025 1:47 PM EDT Assessment Noted Time PHQ-9 Depression Total Score: 0 05/28/20 20 9:39 AM EDT A Body Mass Index follow-up plan has been documented for the patient 06/11/2020 6:01 PM EDT documented as of this encounter Care Teams Casino Gaming Worker Relationship Specialty Start Date End Date Jaylan Gray, SENSITOMETRIST-POWDER COMPOUNDER [address] [place] [address] PCP - General Nurse Practitioner 05/30/25 documented as of this encounter
--- OUTSIDE RECORDS SUMMARY | 2025-06-25 13:05 | XMS_ITS | Encounter Summary ---
Author Organization [employer] s tem Address [facility] [id number] [address] [place] [address] Care Team Providers Care Mold Laminator Name Role Phone Jaylan Gray APRN-TIE PRESSER Primary Care Provider + Reason for Visit * Reason Onset Date Comments Transition Of Care 11/13/2024 Encounter Details Date Type Department Care Team (Late st Contact Info) Description 11/13/2024 [facility] [address] [place] [phone] Mary Hopkins, supervisor cloth winding Of Care Social History Tobacco Use Types Packs/Day Years Used Date Smoking Tobacco: Never Smokeless Tobacco: Never Alcohol Use Standard Drinks/Week Comments No 0 (1 standard drink = 0.6 oz pur e alcohol) [facility] Utilities Answer Date Recorded In the past 12 months has [employer] electric, gas, oil, or water company threatened [...] often do you attend chur ch or latter-day services? More than 4 times per year 10/28/2024 Do you belong to any clubs o r organizations such as jainism groups, unions, fraternal or athletic groups, or [...] Date Recorded Total Score 7 10/28/2024 [facility] of Occupat ional Health - Occupational Stress [...] Recorded Do you need help finding a [facility] career center and/or a training program? No 10/28/2024 Hunger Screening Answer Date Recorded Within the past 12 months we worried whether our food would run out before we got money to buy more. Never True 11/17/2024 Within the past 12 months th e food we bought just didn't last and we didn't have money to get more. Never True 11/17/2024 Purpose - Life Answer Date Recorded I [...] encounter Miscellaneous Notes * Telephone Encounter - Mary Hopkins RN - 11/13/2024 8:47 AM EST Transition of Care (*required) *Additional Questions/Concerns Requiring PCP Follow-Up: 1. Blood cultures pending, no growth 3 days. 2. Please note medication issues listed below. This documentation is being used for Transition of Care purposes: Yes Goal: Patient will demonstrate a safe transition from hospital to home Diagnosis on Discharge: Principal Problem: Elevated troponin, nonspecific Active Problems: GERD without esophagitis Anemia, chronic disease Obstructive sleep apnea syndrome Essential (primary) hypertension Stage 3b chronic kidney disease 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 breast in female, estrogen receptor positive S/p TAVR (transcatheter aortic valve replacement), 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 Type 2 diabetes mellitus with diabetic chronic kidney disease Discharge Specialty: Cardiac *Name of Discharging Facility: [facility] Date of Facility Discharge: 11.09.24 - 11.10.24 Date of Interactive Contact and Name of Floor Tiling Professional: 11.13.24 9am Spoke with patient's daughter Ileana ([facility]). *Medication Review Completed: Yes Daughter sets up medications for patient. New medications: amLODIPine (NORVASC) - daughter did not car pick up driver prescription, will not give to patient unless okay with PCP ciprofloxacin HCl (CIPRO) - patient is taking Changed: atorvastatin (LIPITOR) - daughter confirms dose and says dose was not changed from prior to admit insulin detemir U-100 (LEVEMIR) - daughter confirms dose and says this was not changed from prior to admit metoprolol tartrate (LOPRESSOR) - dose decreased from 25 mg 2 times per day to 12.5 mg 2 times per day - daughter says she will not cut the tablets in half and will continue to give patient 25 mg Medication Reconciliation Questions/Concerns: Daughter says patient lost her [employer] insurance. Daughter signed patient up for new insurance but coverage does not begin until 11.15.24. She will car pick up driver all patient's prescriptions on 11.16.24. Current medications patient has in the home and is taking: Aspirin Atorvastatin Cipro Gabapentin Levemir Humalog Metoprolol - taking 25 mg not 12.5 mg Trazadone Current medications patient DOES NOT HAVE in the home and will not take until new insurance is active on 11.15.24: Amlodipine Clopidogrel Januvia Letrozole Pantoprozole Sertraline New medication Amlodipine - daughter does not plan to give this to patient unless PCP okays. Daughter states patient is taking Lisinopril 5 mg daily which is not listed as current medication. Says in the past Dr. Turner stopped one of patient's medications and started Lisinopril. New dose Metoprolol 25 mg tablet take HALF tablet or 12.5 mg 2 times per day. Daughter says she will not be cutting Metoprolol tablets in half, to small and difficult to cut in half, and will continue to give patient 25 mg dose 2 times per day. *Follow Up Appointments with Providers: Primary: Stephanie Ley APRN-TIE PRESSER - 11.22.24 Specialty: Ramesh Moran MD - Cardiology - 11.24.24 Specialty: Garrett Alvarado MD - Endocrinology - TBD Specialty: Review of Pending Lab/Diagnostic Tests and Plan for Completion: Blood cultures pending, no growth 3 days. Assessment and Support of Treatment Regimen Adherence and Medication Management: Patient's daughter and grandson live with patient and provide assistance with ADLs, housework, meals etc. Patient uses walker, has shower chair, daughter denies need for any additional DME. Daughter provides transportation. Elara to provide SN PT. Daughter confirms Elara scheduled for SOC. Plans outpatient therapy after home therapy discharges. Daughter reports patient remains weak, using her walker when ambulating. Says patient is no longer acting different or complaining of thinking fuzzy . Patient is not running a fever or experiencing chills. No nausea or vomiting. No pain, burning or difficulty with urination. No urgency, frequency, odor or blood in urine. Remains incontinent, norm for patient. Patient is not short of breath, no cough, no chest pain and no swelling. Blood sugars had been running low at night but since pediatric physician changed Levemir dose to 15 units at night blood sugars are running 100 200, no high or low blood sugars. Patient continues taking Humalog 6 units with bkst, lunch, dinner. Daughter says her son has an appointment on 11.16.24 with patient's PCP, daughter will go with her son to that appointment and daughter plans to update PCP regarding patient and discuss patient's medications at that time. CN informed daughter CN will also be sending PCP a note regarding all missing medications and other medications issues listed above. Education Provided by ACN to Support Self-Management, Independent Living and ADLs: - medications - discharge instructions - s/s infection in elderly - call the office for questions, concerns, new, worsening or reoccurring s/s - call 911 if patient experiences urgent issues such as chest pain, sudden dyspnea, stroke symptoms Daughter verbalizes understanding of above. Communication with Home Health Agencies and Other Services Utilized/Needed by the Patient: N/A documented in this encounter Plan of Treatment Upcoming Encounters Date Type Department Care Team (Late st Contact Info) Description 09/05/2025 1:00 PM EDT Office Visit [facility] - Family Medicine [address] [place] [address] Jaylan Gray, VICE PRESIDENT OF SOFTWARE DEVELOPMENT-TIE PRESSER [address] [place] [address] documented as of this encounter Visit Diagnoses [...] documented as of this encounter Care Teams Mold Laminator Relationship Specialty Start Date End Date Jaylan Gray, VICE PRESIDENT OF SOFTWARE DEVELOPMENT-TIE PRESSER [address] [place] [address] PCP - General Nurse Practitioner 05/30/25 documented as of this encounter
--- OUTSIDE RECORDS SUMMARY | 2025-06-25 13:05 | XMS_ITS | Encounter Summary ---
Author Organization [employer] [facility] tem Address [facility] [id number] [address] [place] [address] Care Team Providers Care Narrow Gauge Engineer Name Role Phone Jaylan Gray APRN-MANAGER COMPETITIVE INTELLIGENCE Primary Care Provider + Encounter Details Date Type Department Care Team (Late Contact Info) Description 02/25/2022 Orders Only [facility] [address] [place] [address] [place] [phone] Thais Pichardo MA Screening for malignant neoplasm of colon Social History Tobacco Use Types Packs/Day Years [...] Medicine - Family Medicine [address] [place] [phone] Jaylan Gray, LINUX SYSTEM ADMINISTRATOR-MANAGER COMPETITIVE INTELLIGENCE [address] [place] [address] documented as of this encounter Procedures Procedure Name Priority Date/Time Associated Diagnosis Comments COLOGUARD NON-[facility] Routine 02/25/2022 Screening for malignant neoplasm of colon documented in this encounter Results * Cologuard Non-[facility] (02/25/2022) EXTERNAL COLOGUARD Indeterminate MANUALLY TRANSCRIBED RESULTS Stool 02/25/2022 us Stephanie Ley LINUX SYSTEM ADMINISTRATOR-MANAGER COMPETITIVE INTELLIGENCE LAB ORDERABLES Bing kwok Result MANUALLY TRANSCRIBED RESULTS documented in this encounter Visit Diagnoses Diagnosis Screening for malignant neoplasm of colon documented in this encounter Additional Health Concerns [...] Noted Time PHQ-9 Depression Total Score: 0 08/27/20 21 10:38 AM EDT A Body Mass Index follow-up plan has been documented for the patient 12/02/2021 12:47 PM EST documented as of this encounter Care Teams Narrow Gauge Engineer Relationship Specialty Start Date End Date Jaylan Gray, LINUX SYSTEM ADMINISTRATOR-MANAGER COMPETITIVE INTELLIGENCE [address] [place] [address] PCP - General Nurse Practitioner 05/30/25 documented as of this encounter
--- OUTSIDE RECORDS SUMMARY | 2025-06-25 13:05 | XMS_ITS | Encounter Summary ---
Author Organization [facility] Address [facility] [id number] [address] [place] [address] Care Team Providers Care Java Developer Consultant Name Role Phone Chrismattinder Jaylan Cohen APRN-MILL OPERATOR HELPER Primary Care Provider + Reason for Visit * Reason Onset Date Comments Med Refill 06/05/2020 Encounter Details Date Type Department Care Team (Late Contact Info) Description 06/05/2020 Refill [facility] [address] [place] [address] Oneyda Alicea CMA Controlled type 2 diabetes mellitus with diabetic nephropathy, without long-term current use of insulin ([facility]) Social History Tobacco Use Types [...] - Family Medicine [address] [place] [address] Jaylan Gray, FASHION DIRECTOR-MILL OPERATOR HELPER [address] [place] [address] documented as of this encounter Visit Diagnoses Diagnosis Controlled type 2 diabetes mellitus with diabetic nephropathy, without long-term current use of insulin ([facility]) documented in this encounter Additional [...] documented as of this encounter Care Teams Java Developer Consultant Relationship Specialty Start Date End Date Jaylan Gray, FASHION DIRECTOR-MILL OPERATOR HELPER [address] [place] [address] PCP - General Nurse Practitioner 05/30/25 documented as of this encounter
--- OUTSIDE RECORDS SUMMARY | 2025-06-25 13:05 | XMS_ITS | Encounter Summary ---
[facility] [id number] [address] [place] [address] Care Team Providers Care Layout Man Name Role Phone Jaylan Gray APRN-LEASE OUT MAN Primary Care Provider + Encounter Details Date Type Department Care Team (Late st Contact Info) Description 12/24/2022 Orders Only [facility] - Family Medicine [address] [place] [phone] Destiny Alexis CMA Controlled type 2 diabetes mellitus with diabetic nephropathy, without long-term current use of insulin ([facility]) Social History Tobacco Use Types Packs/Day Years [...] any clubs o r organizations such as muslim groups, unions, fraternal or athletic groups, or [...] Answer Date Recorded Total Score 13 10/05/2022 [facility] Questionnaire Answer Date Recorded [...] have Coronavirus / COVID-19? No / Unsure 12/14/2022 10:03 AM EST documented as of this encounter Plan of Treatment Upcoming Encounters Date Type Department Care Team (Late st Contact Info) Description 09/05/2025 1:00 PM EDT Office Visit [facility] - Family Medicine [address] [place] [address] Jaylan Gray, ESTIMATOR LUMBER-LEASE OUT MAN [address] [place] [address] documented as of this encounter Visit Diagnoses Diagnosis Controlled type 2 diabetes mellitus with diabetic nephropathy, without long-term current use of insulin ([facility]) documented in this encounter Additional Health Concerns [...] documented as of this encounter Care Teams Layout Man Relationship Specialty Start Date End Date Jaylan Gray, ESTIMATOR LUMBER-LEASE OUT MAN [address] [place] [address] PCP - General Nurse Practitioner 05/30/25 documented as of this encounter
--- OUTSIDE RECORDS SUMMARY | 2025-06-25 13:05 | XMS_ITS | Encounter Summary ---
Author Organization [facility] tem Address [facility] [id number] [address] [place] [address] Care Team Providers Care College Recruiter Name Role Phone Isaac Jaylan Vicki JENKINS-CABLE REPAIRER Primary Care Provider + Encounter Details Date Type Department Care Team (Late st Contact Info) Description 05/20/2022 [facility] [address] [place] [address] [address] Thais Pichardo MA Social History Tobacco Use Types Packs/Day Years Used Date Smoking Tobacco: Never Smokeless Tobacco: Never Alcohol Use Standard Drinks/Week Comments No 0 (1 standard drink = 0.6 oz pur e alcohol) PHQ-2 Answer Date Recorded Total Score 0 04/28/2022 Childcare Answer Date Recorded Childcare Unknown 04/14/2019 [...] suspected to have Coronavirus / COVID-19? Yes 05/20/2022 11:29 AM EDT documented as of this encounter Miscellaneous Notes * Telephone Encounter - Thais Pichardo MA - 05/20/2022 10:47 AM EDT DAUGHTER CALLED AND SAID JULIÁN DIAS ISN'T COVERED BY INS- ASKED IF SOMETHING ELSE CAN BE GIVEN. TOLD WILL LET HER KNOW * Telephone Encounter - KAIDEN Werner - 05/20/2022 10:47 AM EDT She is currently in ER for another evaluation. Will see what prognosis is before calling something in documented in this encounter Plan of Treatment Upcoming Encounters Date Type Department Care Team (Late st Contact Info) Description 09/05/2025 1:00 PM EDT Office Visit [facility] - Family Medicine [address] [facility] [place] [address] Jaylan Gray, SPEEDOMETER INSPECTOR-CABLE REPAIRER [address], [address] [address] documented as of this encounter Visit Diagnoses [...] Noted Time PHQ-9 Depression Total Score: 0 04/28/20 9:26 AM EDT A Body Mass Index follow-up plan has been documented for the patient 05/19/2022 5:33 PM EDT documented as of this encounter Care Teams College Recruiter Relationship Specialty Start Date End Date Jaylan Gray, SPEEDOMETER INSPECTOR-CABLE REPAIRER [address] [place] [address] PCP - General Nurse Practitioner 05/30/25 documented as of this encounter
--- OUTSIDE RECORDS SUMMARY | 2025-06-25 13:05 | XMS_ITS | Encounter Summary ---
Author Organization [facility] Appuri s tem Address [id number] [address] [place] [address] Care Team Providers Care Senior Java Developer Name Role Phone Jaylan Gray APRN-CHIROPRACTIC ASSISTANT Primary Care Provider + Encounter Details Date Type Department Care Team (Late st Contact Info) Description 10/23/2022 [facility] [address] [place] [address] Thais Pichardo MA Social History [...] often do you attend chur ch or orthodoxy services? More than 4 times per year [...] Answer Date Recorded Total Score 13 10/05/2022 [facility] - Occupational [...] Recorded Do you need help finding a [facility] career center and/or a training [...] have Coronavirus / COVID-19? No / Unsure 10/05/2022 2:39 AM EST documented as of this encounter Miscellaneous Notes * Telephone Encounter - Thais Pichardo MA - 10/23/2022 9:38 AM EST Daughter called regarding uping meds for mom, yue. * Telephone Encounter - Thais Pichardo MA - 10/23/2022 9:38 AM EST Called yue garcia told to call us back documented in this encounter Plan of Treatment Upcoming Encounters Date Type Department Care Team (Late st Contact Info) Description 09/05/2025 1:00 PM EDT Office Visit [facility] Internal Medicine - Family Medicine [address] [place] [address] Jaylan Gray, METAL CASKET MAKER-CHIROPRACTIC ASSISTANT [address] [place] [address] documented as of this encounter Visit Diagnoses [...] documented as of this encounter Care Teams Senior Java Developer Relationship Specialty Start Date End Date Jaylan Gray, ALICE-CHIROPRACTIC ASSISTANT [address] [place] [address] PCP - General Nurse Practitioner 05/30/25 documented as of this encounter
--- OUTSIDE RECORDS SUMMARY | 2025-06-25 13:05 | XMS_ITS | Encounter Summary ---
Author Organization [facility] tem Address [id number] [address] [place] [address] Care Team Providers Care Boilers And Pressure Vessels Inspector Name Role Phone ChrismattJaylan loving APRN-SLAT PICKLER Primary Care Provider + Reason for Visit * Reason Onset Date Comments Transition Of Care 10/09/2022 Encounter Details Date Type Department Care Team (Late st Contact Info) Description 10/09/2022 Telephone [facility] Family [facility] [address] [place] [address] [place] [address] Radha Pritchard, election judge Of Care Social History Tobacco Use Types [...] often do you attend chur ch or sikhism services? More than 4 times per year [...] Answer Date Recorded Total Score 13 10/05/2022 [facility]at [facility] Health - Occupational [...] Telephone Encounter - Radha Pritchard RN - 10/09/2022 9:35 AM EST Transition of Care Additional Questions/Concerns Requiring PCP Follow-Up: Patient daughter Ileana reports she will call and schedule a follow-up appt after the holiday. This documentation is being used for Transition of Care purposes: Yes Goal: Patient will demonstrate a safe transition from Hospital to Home Diagnosis on Discharge: Acute on chronic diastolic heart failure Anemia, chronic disease SOB (shortness of breath) Aortic stenosis History of non-ST elevation myocardial infarction (NSTEMI) History of pneumonia Elevated d-dimer Stage 3b chronic kidney disease ?? Discharge Specialty: Cardiac Name of Discharging Facility: [facility] Date of Facility Discharge: 10/05/2022 - 10/06/2022 Date of Interactive Contact and Name of Winery Worker: 10.09 at spoke to patient and patient daughter Ileana in regards to patient care, health and medications Medication Review Completed: Pending provider review Yes - Medications ordered obtained and reviewed. Patient daughter Ileana verbalizes appropriate use of START taking: FERROUS SULFATE LASIX CHANGE how you take: INSULIN LISPRO LEVEMIR FLEXTOUCH U-100 INSULN Medication Reconciliation Questions/Concerns: No medical questions or concerns reported at this time. Follow Up Appointments with Providers: Primary: Stephanie Ley APRN-BARTOLO TBD Specialty: Medicare Wellness with Av [place] 9.26.23 at 1 Review of Pending Lab/Diagnostic Tests and Plan for Completion: Patient verbalizes understanding ofneed to have a follow up Basic Metabolic Panel drawn by 10.13. Says he will probably have the lab work done Wednesday. Assessment and Support of Treatment Regimen Adherence and Medication Management: Patient reports she feels a lot better. She states that the shortness of breath has greatly improved Able to lie flat in bed last night without developing symptoms. Says checked BS daily. Reports glucose 240 this morning with no acute abnormalities reported. Instruct on a daily log. Patient usually weighs daily, has not yet today. Denied any swelling to lower extremities, cp, sob, cough, dizziness or any new/worsening symptoms. Eating, drinking and urinating without any complications. Instruct on a heart healthy diet. Denies barriers to accessing food or medications Ileana assist with medication set up in a weekly pill box and reminds patient to take her medications daily. Education Provided by [facility] to Support Self-Management, Independent Living and ADLs: Coal Drier Operator provides supportive education on symptomatic DM, hyper/hypoglycemia signs/symptoms, HTN, meds and importance of close follow up with providers. Patient is accepting to education and verbalizes understanding. Patient informed she lives with her daughter and family. Instruct patient to call the office for questions, concerns, new worsening or recurring s/s. Call 911 for urgent symptoms such as CP, SOB or symptoms of CVA Patient verbalizes understanding of above. Communication with Home Health Agencies and Other Services Utilized/Needed by the Patient: Patient discharge home, self-care and support of family. documented in this encounter Plan of Treatment Upcoming Encounters Date Type Department Care Team (Late st Contact Info) Description 09/05/2025 1:00 PM EDT Office Visit [facility] Internal Medicine - Family Medicine [address] [place] [address] Jaylan Gray, INSIDE B2B SALES-SLAT PICKLER [address], [address] [address] documented as of this encounter Visit Diagnoses [...] documented as of this encounter Care Teams Boilers And Pressure Vessels Inspector Relationship Specialty Start Date End Date Jaylan Gray, INSIDE B2B SALES-SLAT PICKLER [address] [place] [address] PCP - General Nurse Practitioner 05/30/25 documented as of this encounter
--- OUTSIDE RECORDS SUMMARY | 2025-06-25 13:05 | XMS_ITS | Encounter Summary ---
Author Organization [facility] tem Address [facility] [id number] [address] [place] [address] Care Team Providers Care Photograph Mounter Name Role Phone Isaac Jaylan Cohen APRN-HOT PLATE PLYWOOD PRESS FEEDER Primary Care Provider + Encounter Details Date Type Department Care Team (Late st Contact Info) Description 10/19/2024 Orders Only [facility] Internal Medicine - Family Medicine [address] [facility] [place] [id number] Ref Prov, [place] [address] Social History Tobacco Use Types Packs/Day Years Used Date Smoking Tobacco: Never Smokeless Tobacco: Never Alcohol Use Standard Drinks/Week Comments No 0 (1 standard drink = 0.6 oz pur e alcohol) [facility] Utilities Answer Date Recorded In the past 12 months has e electric, gas, oil, or water company threatened to shut off services in your home? No 08/23/2024 Social Connection and Isolat ion Panel [NHANES] [...] any clubs o r organizations such as jehovah's witness groups, unions, fraternal or athletic groups, or [...] food, housing, medical care, and heating? Not hard at all 08/31/2023 PHQ-2 Answer Date Recorded Total Score 0 08/28/2024 [facility] Occup[facility] - Occupational Stress [...] medical appointments or from getting medications? No 07/2024 In the past 12 months, has l ack of transportation kept you from meetings, work, or from getting things needed for daily living? No 08/23/2024 Housing Instability Answer Date Recorde d Are you worried or concerned that in the next two months you may not have stable housing that you own, rent or stay in as a part of a household? No 08/23/2024 Childcare Answer Date Recorded Do problems getting child ca re make it difficult for you to work or study? No 10/05/2022 Employment Answer Date Recorded Do you need help finding a l al career center and/or a training program? No 10/05/2022 Hunger Screening Answer Date Recorded Within the past 12 months we worried whether our food would run out before we got money to buy more. Never True 10/11/2024 Within the past 12 months th e food we bought just didn't last and we didn't have money to get more. Never True 10/11/2024 Purpose - Life Answer Date Recorded I [...] Medicine - Family Medicine [address] [place] [address] Jaylan Gray, BOTTLE MACHINE OPERATOR-HOT PLATE PLYWOOD PRESS FEEDER [address] [place] [address] documented as of this encounter Procedures Procedure Name Priority Date/Time Associated Diagnosis Comments XR CHEST 1 VW Routine 10/19/2024 8:[address] ABDOMEN AND PELVIS WO CONT Routine 10/11/2024 1:[address] BRAIN WO CONT Routine 10/11/2024 1:45 PM EST XR CHEST 1 VW Routine 10/11/2024 1:30 PM EST documented in this encounter Results * X-ray chest 1 view (10/19/2024 8:26 AM EST) Anatomical Region Laterality Modality Body, Chest N/A Computed Radiogr aphy us Not In System Ref Prov IMG DIAGNOSTIC IMAGING OR DERABLES Final Result * CT abdomen and pelvis without contrast (10/11/2024 1:46 PM EST) Anatomical Region Laterality Modality Body, Abdomen, Body Covera N/A Compu collin Tomography us Not In System Ref Prov IMG CT ORDERABLES Final R esult * CT brain without contrast (10/11/2024 1:45 PM EST) Anatomical Region Laterality Modality Neuro, Head, Head and Neck, Neuro Covera N/A Computed Tomography us Not In System Ref Prov IMG CT ORDERABLES Final R esult * X-ray chest 1 view (10/11/2024 1:30 PM EST) Anatomical Region Laterality Modality Body, Chest N/A Computed Radiogr aphy us Not In System Ref Prov IMG DIAGNOSTIC IMAGING OR DERABLES Final Result documented in this encounter Visit Diagnoses Not on filedocumented in this encounter Additional Health Concerns Infection Onset Date Last Indicated Resolved Time COVID-19 Rule-Out 11/09/2024 11/09/2024 11/09/2024 7:48 AM EST Respiratory Rule-Out 02/12/2025 02/12/2025 025 1:47 PM EDT Assessment Noted Time PHQ-9 Depression Total Score: 0 08/28/20 24 8:12 AM EDT A Body Mass Index follow-up plan has been documented for the patient 02/09/2024 2:20 PM EDT documented as of this encounter Care Teams Photograph Mounter Relationship Specialty Start Date End Date Jaylan Gray, BOTTLE MACHINE OPERATOR-HOT PLATE PLYWOOD PRESS FEEDER [address] [place] [address] PCP - General Nurse Practitioner 05/30/25 documented as of this encounter
--- OUTSIDE RECORDS SUMMARY | 2025-06-25 13:06 | XMS_ITS | Encounter Summary ---
Author Organization [email or web address] [facility] tem Address [id number] [address] [place] [address] Care Team Providers Care Forging Press Operator Name Role Phone Jaylan Gray APRN-BAGGAGE AGENT SUPERVISOR Primary Care Provider + Encounter Details Date Type Department Care Team (Late Contact Info) Description 10/06/2021 Telephone [facility] Family Medicine [address] [place] [address] Leslie Johnson, RHIANNA Social History Tobacco Use Types Packs/Day Years [...] Medicine - Family Medicine [address] [place] [address] Jaylan Gray, CARBURETOR SPECIALIST-BAGGAGE AGENT SUPERVISOR [address] [place] [address] documented as of this encounter Visit Diagnoses [...] Time PHQ-9 Depression Total Score: 0 08/27/20 10:38 AM EDT A Body Mass Index follow-up plan has been documented for the patient 09/02/2021 6:07 AM EDT documented as of this encounter Care Teams Forging Press Operator Relationship Specialty Start Date End Date Jaylan Gray, CARBURETOR SPECIALIST-BAGGAGE AGENT SUPERVISOR [address] [place] [address] PCP - General Nurse Practitioner 05/30/25 documented as of this encounter
--- OUTSIDE RECORDS SUMMARY | 2025-06-25 13:06 | XMS_ITS | Encounter Summary ---
Author Organization [facility] tem Address [id number] [address] [place] [address] Care Team Providers Care Can Filler Name Role Phone Jaylan Gray APRN-FLIGHT INSPECTOR Primary Care Provider + Encounter Details Date Type Department Care Team (Late st Contact Info) Description 10/16/2021 [facility]phone [facility] [address] [facility] [place] [address] Leslie Johnson CMA Social History [...] have Coronavirus / COVID-19? No / Unsure 10/12/2021 8:00 AM EST documented as of this encounter Miscellaneous Notes * Telephone Encounter - Leslie Johnson CMA - 10/16/2021 4:16 PM EST Pt will be getting at home PT and Occ therapy, per Shauna HEATON. documented in this encounter Plan of Treatment Upcoming Encounters Date Type Department Care Team (Late st Contact Info) Description 09/05/2025 1:00 PM EDT Office Visit [facility] Internal Medicine - Family Medicine [address] [place] [address] Jaylan Gray, DEVELOPMENT ENGINEER-FLIGHT INSPECTOR [address] [place] [address] documented as of this encounter Visit Diagnoses [...] documented as of this encounter Care Teams Can Filler Relationship Specialty Start Date End Date Jaylan Gray, DEVELOPMENT ENGINEER-FLIGHT INSPECTOR [address] [place] [address] PCP - General Nurse Practitioner 05/30/25 documented as of this encounter
--- OUTSIDE RECORDS SUMMARY | 2025-06-25 13:06 | XMS_ITS | Encounter Summary ---
Author Organization [employer] s tem Address [facility] [place]-[id number] [address] [place] [address] Care Team Providers Care Credit Administration Specialist Name Role Phone Jaylan Gray APRN-OYSTER WORKER Primary Care Provider + Reason for Referral * Diagnostic Imaging (Emergency) - Closed Specialty Diagnoses / Procedures Referred By Contac t Referred To Contact Radiology Diagnoses Stroke-like symptoms Procedures MR brain with and without contrast Karolina Roth PA [address] [place] [address] [address] [place] [address] Phone: tel: fax: Referral ID Status Reason Start Date Expiration Date Visits Re quested Visits Authorized [id number] Closed 02/28/2024 02/27/2025 1 1 Encounter Details Date Type Department Care Team (Late st Contact Info) Description 02/28/2024 Orders Only [facility] Tele Stroke [address] [place] [phone] Karolina Roth PA [address] [place] [address], [facility] [address] [place] [address] Stroke-like symptoms (Primary Dx); Brainstem stroke (CMS-HCC) Social History Tobacco Use Types Packs/Day [...] often do you attend chur ch or buddhism services? More than 4 times per year 10/05/2022 Do you belong to any clubs o r organizations such as oriental orthodox groups, unions, fraternal or athletic groups, or [...] PHQ-2 Answer Date Recorded Total Score 0 03/02/2024 [facility] - Occupational [...] medical appointments or from getting medications? No 10/1 05/2023 In the past 12 months, has l ack of transportation kept you from meetings, work, or from getting things needed for daily living? No 08/31/2023 Housing Instability Answer Date Recorde d Are you worried or concerned that in the next two months you may not have stable housing that you own, rent or stay in as a part of a household? No 08/31/2023 Childcare Answer Date Recorded Do problems getting child ca re make it difficult for you to work or study? No 10/05/2022 Employment Answer Date Recorded Do you need help finding a [employer] career center and/or a training program? No 10/05/2022 Hunger Screening Answer Date Recorded Within the past 12 months we worried whether our food would run out before we got money to buy more. Never True 03/02/2024 Within the past 12 months th e food we bought just didn't last and we didn't have money to get more. 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 documented in this encounter Additional Health Concerns Infection Onset Date Last Indicated Resolved Time COVID-19 Rule-Out 06/13/2024 06/13/2024 06/13/2024 7:31 AM EDT COVID-19 Rule-Out 08/12/2024 08/12/2024 08/12/2024 3:20 AM EDT COVID-19 Positive 08/12/2024 08/12/2024 09/02/2024 11:12 PM EDT COVID-19 Rule-Out 11/09/2024 11/09/2024 11/09/2024 7:48 AM EST Respiratory Rule-Out 02/12/2025 02/12/2025 025 1:47 PM EDT Assessment Noted Time PHQ-9 Depression Total Score: 0 02/09/20 12:59 PM EDT A Body Mass Index follow-up plan has been documented for the patient 02/09/2024 2:20 PM EDT documented as of this encounter Care Teams Credit Administration Specialist Relationship Specialty Start Date End Date Jaylan Gray, SHIP'S COOK-OYSTER WORKER [address] [place] [address] PCP - General Nurse Practitioner 05/30/25 documented as of this encounter
--- OUTSIDE RECORDS SUMMARY | 2025-06-25 13:06 | XMS_ITS | Encounter Summary ---
Author Organization [employer] s tem Address [facility] [id number] [address] [place] [address] Care Team Providers Care Dividend Deposit Voucher Clerk Name Role Phone Jaylan Gray APRN-BILLBOARD POSTER Primary Care Provider + Reason for Referral * Cardiology (Routine) - Closed Specialty Diagnoses / Procedures Referred By Contac t Referred To Contact Diagnoses S/p TAVR (transcatheter aortic valve replacement), bioprosthetic Procedures Echo complete W/Strain Imaging Lucie Lincoln PA [address] [place] [id number] Phone: tel: fax: Referral ID Status Reason Start Date Expiration Date Visits Re quested Visits Authorized [id number] Closed 07/20/2024 07/20/2025 1 1 Encounter Details Date Type Department Care Team (Late st Contact Info) Description 07/20/2024 Orders Only [facility] Cardiology [address] [place] [phone] Lucie Lincoln PA [address] [place] [id number] S/p TAVR (transcatheter aortic valve replacement), bioprosthetic (Primary Dx) Social History Tobacco Use Types Packs/Day Years Used Date Smoking Tobacco: Never Smokeless Tobacco: Never Alcohol Use Standard Drinks/Week Comments No 0 (1 standard drink = 0.6 oz pur e alcohol) [facility] Utilities Answer Date Recorded In the past 12 months has th e electric, gas, oil, or water company threatened to shut off services in your home? No 06/13/2024 Social Connection and Isolat ion Panel [NHANES] Answer Date Recorded In a typical week, how many times do you talk on the phone with family, friends, or neighbors? Never 10/05/2022 How often do you get togethe r with friends or relatives? Never 10/05/2022 How often do you attend chur ch or uatsdin services? More than 4 times per year [...] PHQ-2 Answer Date Recorded Total Score 0 06/21/2024 [facility] of Occupat ional Health - Occupational Stress [...] medical appointments or from getting medications? No 05/17 In the past 12 months, has l ack of transportation kept you from meetings, work, or from getting things needed for daily living? No 06/13/2024 Housing Instability Answer Date Recorde d Are you worried or concerned that in the next two months you may not have stable housing that you own, rent or stay in as a part of a household? No 06/13/2024 Childcare Answer Date Recorded Do problems getting child ca re make it difficult for you to work or study? No 10/05/2022 Employment Answer Date Recorded Do you need help finding a [facility] career center and/or a training program? No 10/05/2022 Hunger Screening Answer Date Recorded Within the past 12 months we worried whether our food would run out before we got money to buy more. Never True 06/25/2024 Within the past 12 months th e food we bought just didn't last and we didn't have money to get more. Never True 06/25/2024 Purpose - Life Answer Date Recorded I [...] Medicine - Family Medicine [address] [place] [phone] Jaylan Gray, MANAGER CORE-BILLBOARD POSTER [address], [address] [place] [address] documented as of this encounter Results * Echo complete W/Strain Imaging (09/15/2024 12:12 PM EDT) LVOT stroke volume 79.65 ml XCELERA FS 36 28 - 44 % XCELERA LVIDd 4.40 cm XCELERA LVIDs 2.80 cm XCELERA IVS 1.90 0.6 - 1.1 cm XCELERA PW 1.10 0.6 - 1.1 cm XCELERA LVOT diameter 1.80 cm XCELERA TDI 7.29 cm/s XCELERA MV TDI E' (medial) 4.90 cm/s XCELERA E/A ratio 0.64 XCELERA E wave deceleration time 405.00 msec XCELERA MV Peak E Hever 75.70 cm/s XCELERA MV Peak A Hever 119.00 cm/s XCELERA RV diastolic dimension (basal) 27.0 mm XCELERA TAPSE 1.87 cm XCELERA AV peak hever 171.00 cm/s XCELERA LVOT peak hever 1.40 m/s XCELERA AV VTI 37.50 cm XCELERA LVOT peak VTI 31.30 cm XCELERA AV mean gradient 7.00 mmHg XCELERA AV peak gradient 11.70 mmHg XCELERA AV valve area 2.12 XCELERA Valve area - Index 0.9 XCELERA MV mean gradient 2.00 mmHg XCELERA MV peak gradient 5.57 mmHg XCELERA MV VTI 38.00 cm XCELERA MV valve area by continuity eq 2.09 XCELERA MV pressure 1/2 time 119.00 ms XCELERA MV valve area p 1/2 method 1.85 cm2 XCELERA TR Peak Hever 2.7 m/s XCELERA TR peak gradient 29.00 mmHg XCELERA LV ESV A2C 70.00 mL XCELERA LV ESV A4C 37.00 mL XCELERA Mitral Valve Max Velocity 1.18 cm/s XCELERA LV RWT 2D 50.00 XCELERA AV Velocity Ratio 0.83 XCELERA Left Ventricle Mass 266.66384 210652069 2 g XCELERA Interventricular Septum Diastolic Thickness by 2D 19 cm XCELERA GLS -16 % XCELERA RA area 12.9 cm2 XCELERA AV mechanical size in mm 26 mm XCELERA Est. RA pressure 3 mmHg XCELERA RV Peak Systolic Pressure 32 mmHg XCELERA Anatomical Region Laterality Modality Chest N/A Ultrasound Narrative 09/15/2024 12:43 PM EDT Left Ventricle: Left ventricle appears normal in size. There is severe focal basal increased wall thickness/hypertrophy. Remaining wall segments are mildly increased. Systolic function is normal with an ejection fraction of 60-65%. GLS is -16%. Strain may be innaccurate due to poor image quality. No obvious regional wall motion abnormalities. Unable to assess diastolic function due to valve repair/replacement. Calculation of the global longitudinal strain revealed a strain rate of -16%. Lateral E' is 7.29 cm/s. Medial E' is 4.90 cm/s. Right Ventricle: Systolic function is low normal. Aortic Valve: There is a 26 mm Evolut FX CoreValve TAVR. Tricuspid Valve: There is mild regurgitation. Left Ventricle Left ventricle appears normal in size. There is severe focal basal increased wall thickness/hypertrophy. Remaining wall segments are mildly increased. Systolic function is normal with an ejection fraction of 60-65%. GLS is -16%. Strain may be innaccurate due to poor image quality. No obvious regional wall motion abnormalities. Unable to assess diastolic function due to valve repair/replacement. Calculation of the global longitudinal strain revealed a strain rate of -16%. Lateral E' is 7.29 cm/s. Medial E' is 4.90 cm/s. Right Ventricle Right ventricular size appears normal. The right ventricular basal diameter is 27.0 mm. Systolic function is low normal. Left Atrium Left atrium is normal in size. Right Atrium Right atrium is normal in size. The right atrial area is 12.9 cm2. IVC/SVC The right atrial pressure is estimated at 3 mmHg. IVC appears normal. There is normal collapse with deep inspiration. Mitral Valve There is mild posterior annular calcification. There is trace regurgitation. There is no evidence of mitral valve stenosis. Tricuspid Valve Tricuspid valve appears to be normal. There is mild regurgitation. RVSP calculated at 32 mmHg. RVSP is based on RA pressure of 3 mmHg. Aortic Valve There is a 26 mm Evolut FX CoreValve TAVR. There is no regurgitation. Pulmonic Valve The pulmonic valve was not well visualized. There is no regurgitation. Ascending Aorta The aortic root is normal in size. Pericardium There is no pericardial effusion. Study Details A complete echo was performed using complete 2D, color flow Doppler, spectral Doppler and strain imaging. The study had technical difficulties. The study was difficult due to patient's body habitus and poor acoustic windows. Wall Scoring Baseline Score Index: 1.00 The left ventricular wall motion is normal. us Lucie FRIEND CV ECHO ORDERABLES Final Res ult documented in this encounter Visit Diagnoses Diagnosis S/p TAVR (transcatheter aortic valve replacement), bioprosthetic- Primary S/p TAVR (transcatheter aortic valve replacement), bioprosthetic documented in this encounter Additional Health Concerns Infection Onset Date Last Indicated Resolved Time COVID-19 Rule-Out 08/12/2024 08/12/2024 08/12/2024 3:20 AM EDT COVID-19 Positive 08/12/2024 08/12/2024 09/02/2024 11:12 PM EDT COVID-19 Rule-Out 11/09/2024 11/09/2024 11/09/2024 7:48 AM EST Respiratory Rule-Out 02/12/2025 02/12/2025 025 1:47 PM EDT Assessment Noted Time PHQ-9 Depression Total Score: 0 06/21/20 2:46 PM EDT A Body Mass Index follow-up plan has been documented for the patient 02/09/2024 2:20 PM EDT documented as of this encounter Care Teams Dividend Deposit Voucher Clerk Relationship Specialty Start Date End Date Jaylan Gray, MANAGER CORE-BILLBOARD POSTER [address] [place] [address] PCP - General Nurse Practitioner 05/30/25 documented as of this encounter
--- OUTSIDE RECORDS SUMMARY | 2025-06-25 13:06 | XMS_ITS | Encounter Summary ---
Author Organization [facility] tem Address [id number] [address] [place] [address] Care Team Providers Care Tip Bander Name Role Phone Jaylan Gray APRN-GEOSPATIAL INFORMATION TECHNOLOGIST Primary Care Provider + Encounter Details Date Type Department Care Team (Late st Contact Info) Description 10/25/2024 Telephone [facility] Internal Medicine - Family Medicine [address] [address] Krishna Escoto CMA Social History Tobacco Use Types Packs/Day Years Used Date Smoking Tobacco: Never Smokeless Tobacco: Never Alcohol Use Standard Drinks/Week Comments No 0 (1 standard drink = 0.6 oz pur e alcohol) [facility] Utilities Answer Date Recorded In the past [...] any clubs o r organizations such as restorationism groups, unions, fraternal or athletic groups, or [...] Answer Date Recorded Total Score 7 10/28/2024 [facility] - Occupational Stress Questionnaire Answer Date [...] documented as of this encounter Functional Status * Audit-C Score Answer Date of Assessment Author 0 10/28/2024 5:19 AM Escobar Lang RN * Question Answer Date of Assessment Author Q1: How often do you have a drink containing alcohol? Never 10/28/2024 5:19 AM Fany Lang RN Q2: How many drinks containing alcohol do you have on a typical day when you are drinking? Patient does not drink 10/28/2024 5:19 AM Fany Lang RN Q3: How often do you have six or more drinks on one occasion? Never 10/28/2024 5:19 AM Fany Lang RN * Question Answer Date of Assessment Author Functional Status Minimum assistance 10/27/2024 8:40 P M EST Garth Dickey RN documented as of this encounter Miscellaneous Notes * Telephone Encounter - Krishna Escoto CMA - 10/25/2024 10:41 AM EST Pt calls states she has a yeast infection from all her medications from her Er visit. This is a Valpt could you send in something to [facility]? * Telephone Encounter - Michael Navarrete DO - 10/25/2024 10:41 AM EST Message noted. No. I do not know what medication she was given in the ED. I do not know what ED she was in. At thevery least, she needs to have a video visit so we can look at the ???rash?? * Telephone Encounter - Krishna Escoto CMA - 10/25/2024 10:41 AM EST OK! She does not have my Chart. documented in this encounter Plan of Treatment Upcoming Encounters Date Type Department Care Team (Late st Contact Info) Description 09/05/2025 1:00 PM EDT Office Visit [facility] Internal Medicine - Family Medicine [address] [place] [address] Jaylan Gray, IDEA WORKER-GEOSPATIAL INFORMATION TECHNOLOGIST [address], [place] [address] documented as of this encounter Visit Diagnoses [...] documented as of this encounter Care Teams Tip Bander Relationship Specialty Start Date End Date Jaylan Gray, IDEA WORKER-GEOSPATIAL INFORMATION TECHNOLOGIST [address] [place] [address] PCP - General Nurse Practitioner 05/30/25 documented as of this encounter
--- OUTSIDE RECORDS SUMMARY | 2025-06-25 13:06 | XMS_ITS | Encounter Summary ---
Author Organization [employer] [facility] tem Address [facility] [id number] [address] [place] [address] Care Team Providers Care Merchandising Director Name Role Phone Jaylan Gray APRN-UTILITY SUPERVISOR BOAT AND PLANT Primary Care Provider + Reason for Visit * Reason Comments Med Refill Encounter Details Date Type Department Care Team (Late Contact Info) Description 06/13/2017 Refill [facility] Family Medicine [address] [place] [address] [place] [address] Michael Duarte, DO [address] [place] [address] Social History Tobacco Use Types Packs/Day Years Used Date Smoking Tobacco: Never Smokeless Tobacco: Never Alcohol Use Standard Drinks/Week Comments No 0 (1 standard drink = 0.6 oz pur e alcohol) Comments Unknown Sex and Gender Information Value [...] Medicine - Family Medicine [address] [place] [phone] Jaylan Gray, FURNITURE FABRICATOR-UTILITY SUPERVISOR BOAT [employer] PLANT [address], [address] [place] [address] documented as of this encounter [...] Noted Time PHQ-9 Depression Total Score: 0 03/17/20 17 10:00 AM EDT documented as of this encounter Care Teams Merchandising Director Relationship Specialty Start Date End Date Jaylan Gray, FURNITURE FABRICATOR-UTILITY SUPERVISOR [employer] PLANT [address] [place] [address] PCP - General Nurse Practitioner 05/30/25 documented as of this encounter
--- OUTSIDE RECORDS SUMMARY | 2025-06-25 13:06 | XMS_ITS | Encounter Summary ---
Author Organization [facility] Address [facility] [id number] [address] [place] [address] Care Team Providers Care Stock Taker Name Role Phone Jaylan Gray APRN-KNITTING INSPECTOR Primary Care Provider + Reason for Visit * Reason Onset Date Comments Med Refill 07/06/2017 Encounter Details Date Type Department Care Team (Late Contact Info) Description 07/06/2017 [facility] [address] [place] [facility] [address] Thais Pichardo MA Type 2 diabetes mellitus with other specified complication, with long-term current use of insulin ([facility]) (Primary Dx) Social History Tobacco Use Types [...] Telephone Encounter - Thais Pichardo MA - 07/06/2017 10:19 AM EDT WILL BE OUT OF MEDS BEFORE APPT, NEEDS SENT TO RENEE Pichardo MA 07/06/17 1019 documented in this encounter Plan of Treatment Upcoming Encounters Date Type Department Care Team (Late Contact Info) Description 09/05/2025 1:00 PM EDT Office Visit [facility] Internal Medicine - Family Medicine [address] [place] [phone] Jaylan Gray, GOVERNMENT GUARD-KNITTING INSPECTOR [address] [place] [address] documented as of this encounter Visit Diagnoses Diagnosis Type 2 diabetes mellitus with other specified complication, with long-term current use of insulin ([facility])- Primary documented in this encounter Additional Health [...] 06/13/2024 7:31 AM EDT COVID-19 Rule-Out 08/12/2024 08/12/202408/12/2024 3:20 AM EDT COVID-19 Positive 08/12/2024 08/12/2024 09/02/2024 11:12 PM EDT COVID-19 Rule-Out 11/09/2024 11/09/2024 11/09/2024 7:48 AM EST Respiratory Rule-Out 02/12/2025 02/12/2025 025 1:47 PM EDT Assessment Noted Time PHQ-9 Depression Total Score: 0 03/17/20 17 10:00 AM EDT documented as of this encounter Care Teams Stock Taker Relationship Specialty Start Date End Date Jaylan Gray, GOVERNMENT GUARD-KNITTING INSPECTOR [address] [place] [address] PCP - General Nurse Practitioner 05/30/25 documented as of this encounter
--- OUTSIDE RECORDS SUMMARY | 2025-06-25 13:06 | XMS_ITS | Encounter Summary ---
Author Organization [facility] [employer] s tem Address [facility] [id number] [address] [place] [address] Care Team Providers Care Straightening Machine Operator Name Role Phone Jaylan Gray APRN-SEAM FELLER Primary Care Provider + Encounter Details Date Type Department Care Team (Late st Contact Info) Description 05/25/2024 [facility]phone [facility] [address] [place] [address] Alice Morrison CMA Social History [...] How often do you attend chur or mormonism services? More than 4 times per year 10/05/2022 Do you belong to any clubs o r organizations such as faith groups, unions, fraternal or athletic groups, or [...] PHQ-2 Answer Date Recorded Total Score 0 05/03/2024 [facility] of Occupat ional Health - Occupational [...] medical appointments or from getting medications? No 08/15 In the past 12 months, has l [...] Recorded Do you need help finding a [facility] career center and/or a training program? No 10/05/2022 Hunger Screening Answer Date Recorded Within the past 12 months we worried whether our food would run out before we got money to buy more. Never True 05/03/2024 Within the past 12 months th e food we bought just didn't last and we didn't have money to get more. Never True 05/03/2024 Purpose - Life Answer Date Recorded I [...] Telephone Encounter - Alice Morrison CMA - 05/25/2024 5:01 PM EDT Shy from [facility] called to let you know that this pts Sugar was 308 nonfasting She did take 4 units of the fast acting , did not chech bs before eating , no symptoms of hypoglycemia and she does take her long acting in the evening .. She stated that she did educate the pt on injection sites bc she was giving them in her deltoids * Telephone Encounter - KAIDEN Werner - 05/25/2024 5:01 PM EDT Ok. Thank you documented in this encounter Plan of Treatment Upcoming Encounters Date Type Department Care Team (Late st Contact Info) Description 09/05/2025 1:00 PM EDT Office Visit [facility] Internal Medicine - Family Medicine [address] [place] [address] Jaylan Gray, ALICE-SEAM FELLER [address], [facility] [address] [place] [address] documented as of this encounter Visit Diagnoses [...] Noted Time PHQ-9 Depression Total Score: 0 05/03/20 24 2:30 PM EDT A Body Mass Index follow-up plan has been documented for the patient 02/09/2024 2:20 PM EDT documented as of this encounter Care Teams Straightening Machine Operator Relationship Specialty Start Date End Date Jaylan Gray, SEED CORE OPERATOR-SEAM FELLER [address] [place] [address] PCP - General Nurse Practitioner 05/30/25 documented as of this encounter
--- OUTSIDE RECORDS SUMMARY | 2025-06-25 13:06 | XMS_ITS | Encounter Summary ---
Author Organization [facility] [employer] s tem Address [facility] [id number] [address] [place] [address] Care Team Providers Care Drawer Liner Name Role Phone Jaylan Gray APRN-FACILITIES FLIGHT CHECK PILOT Primary Care Provider + Encounter Details Date Type Department Care Team (Late st Contact Info) Description 09/13/2024 [facility]phone [facility] [address] [place] [address] Alice Morrison CMA Social History Tobacco Use Types Packs/Day Years Used Date Smoking Tobacco: Never Smokeless Tobacco: Never Alcohol Use Standard Drinks/Week Comments No 0 (1 standard drink = 0.6 oz pur e alcohol) [facility] Utilities Answer Date Recorded In the [...] often do you attend chur ch or rastafari services? More than 4 times per year 10/05/2022 Do you belong to any clubs o r organizations such as mandaeism groups, unions, fraternal or athletic groups, or [...] Answer Date Recorded Total Score 0 08/28/2024 [facility] of Occupat ional Health - [...] Recorded Do you need help finding a [facility] and/or a training program? No 10/05/2022 Hunger Screening Answer Date Recorded Within the past 12 months we worried whether our food would run out before we got money to buy more. Patient unable to answer 08/23/2024 Within the past 12 months th e food we bought just didn't last and we didn't have money to get more. Patient unable to answer 08/23/2024 Purpose - Life Answer Date Recorded I [...] Telephone Encounter - Alice Morrison CMA - 09/13/2024 12:49 PM EDT Shy from [facility] called stated she is was there with pt and pt has scabs on her right arm that are itcy [facility] nurse thinks its a nervouse thing for pt to scratch them open but also thinks that they may have something fungal going on with them and would like to get ahead of it before it does turn into an infection , [facility] is her pharmacy and daughter is to be contacted * Telephone Encounter - KAIDEN Werner - 09/13/2024 12:49 PM EDT They are not fungal. This is chronic for her. She scratches and picks the scabs. She is to use mupirocin ointment as I previously ordered. If they are out, I will reorder. * Telephone Encounter - Alice Morrison CMA - 09/13/2024 12:49 PM EDT Called daughter she would like a refill pls documented in this encounter Plan of Treatment Upcoming Encounters Date Type Department Care Team (Late st Contact Info) Description 09/05/2025 1:00 PM EDT Office Visit [facility] Internal Medicine - Family Medicine [address] [place] [address] Jaylan Gray, CATALYST OPERATOR GASOLINE-FACILITIES FLIGHT CHECK PILOT [address], [address] [address] documented as of this encounter Visit Diagnoses [...] documented as of this encounter Care Teams Drawer Liner Relationship Specialty Start Date End Date Jaylan Gray, CATALYST OPERATOR GASOLINE-FACILITIES FLIGHT CHECK PILOT [address] [place] [address] PCP - General Nurse Practitioner 05/30/25 documented as of this encounter
--- OUTSIDE RECORDS SUMMARY | 2025-06-25 13:06 | XMS_ITS ---
Author Organization [facility] Care Team Providers Care Computer Graphics Illustrator Name Role Phone Brennan Cardona Unavailable Unavailable Kellie Camacho Unavailable Unavailable Amy Durand Unavailable Unavailable Graham RODRIGUES, Janie Maravilla Unavailable Unavailable Bakies, Janay Unavailable Unavailable Niya Meehan Unavailable Unavailable Jarrett FREEDMANCLakeshia Unavailable Unavailable Allergies and adverse reactions No Known Allergies Care Team Name Role Address Phone Organization Dates Kelile Camacho [address], [facility], [place] (Office): : [facility] 03/20/2021 - 03/28/2021 Brennan Cardona [address] [place] [address], [address], [place] (Office): : : [facility] 03/20/2021 - 03/28/2021 Amy Durand [address] [place], [address], [facility] (Cell): : [facility] 03/20/2021 - 03/28/2021 Janie Stevenson BROOM BUILDER [address] [place], [address], [place] (Office): : : [facility] 03/20/2021 - 03/28/2021 Janay Liza [place], [facility] (Cell): [facility] 03/20/2021 - 03/28/2021 Niya Meehan [address] [place] [address], [address], [facility] (Office): : [facility] 03/20/2021 - 03/28/2021 Lakeshia Farias BROOM BUILDER-C [address] [address], [place], [address], [facility] (Cell): : : [facility] 03/20/2021 - 03/28/2021 Immunizations Immunization Status Vaccine Details Vaccine Code CodeSystem Chano e Notes SARS-COV-2 (COVID-19) completed SARS-COV-2 (COVID-19) vaccine, mRNA, spike protein, LNP, preservative free, 100 mcg/0.5mL dose or 50 mcg/0.25mL dose Step 2 of Multi-step with next step required 207 CVX created date: 03/21/2021 administered date: 02/04/2021 SARS-COV-2 (COVID-19) completed SARS-COV-2 (COVID-19) vaccine, mRNA, spike protein, LNP, preservative free, 100 mcg/0.5mL dose or 50 mcg/0.25mL dose Step 1 of Multi-step with next step required 207 CVX created date: 03/21/2021 administered date: 01/07/2021 Problems Problem # Description Date of onset Resolved Date Code CodeSystem Concern Status 1 ATHEROSCLEROTIC HEART DISEASE OF [place] CORONARY ARTERY WITHOUT ANGINA PECTORIS 03/20/[id number] active 2 CHRONIC OBSTRUCTIVE PULMONARY DISEASE, UNSPECIFIED 03/20/[address] active 3 ESSENTIAL (PRIMARY) HYPERTENSION 03/20/[address] active 4 GASTRO-ESOPHAGEAL REFLUX DISEASE WITHOUT ESOPHAGITIS 03/20/[address] active 5 HYPERLIPIDEMIA, UNSPECIFIED 03/20/[address] active 6 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 (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) USE OF 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 03/20/[address] active 7 MAJOR DEPRESSIVE DISORDER, RECURRENT SEVERE WITHOUT PSYCHOTIC FEATURES 03/20/[address] active 8 SUICIDAL IDEATIONS 03/20/[address] active 9 TYPE 2 DIABETES MELLITUS WITHOUT COMPLICATIONS 03/20/[address] active 10 VITAMIN D DEFICIENCY, UNSPECIFIED 03/20/[address] active Reason for Referral No Reasons for Referral Entered Social History Social History Observation Description Start Date End Date Code Code System Current Smoking Status Tobacco smoking consumption unknown 320401629 SNOMED CT Sex Assigned At Female 1945 [address]-3 [facility] Gender Identity Vital Signs Code Code System Vitals Name Values and Units Timing Information 2339-0 [facility] Blood Sugar Asfts=571.0 Units=mg/dL 03/28/2021 9279-1 [facility] Respiratory Rate Value=16.0 Units=/m in 03/28/2021 8462-4 [facility] Blood Pressure-Diastolic Value=52 Un its=mmHg 03/28/2021 8480-6 [facility] Blood Pressure-Systolic Yhjse=668 Un its=mmHg 03/28/2021 8310-5 [facility] Body Temperature Value=98.1 Units= F 03/28/2021 8867-4 [facility] Heart rate Value=56.0 Units=/min 19560-2 [facility] O2 % BldC Oximetry Value=98.0 Units= % 03/28/2021 15923-0 [facility] Pain Level Value=0.0 03/28/2021 73651-9 [facility] Weight Mnjsc=119.0 Units=Lbs 04/2021 8302-2 [facility] Height Value=65.0 Units=Inches 03/20/2021
--- OUTSIDE RECORDS SUMMARY | 2025-06-25 13:06 | XMS_ITS | Encounter Summary ---
Author Organization [facility] Address [address] [facility] [address] Care Team Providers Care Cutter Grinder Operator Name Role Phone Unallocated, Noms Provider Primary Care Provi michele Encounter Details Date Type Department Care Team (Late st Contact Info) Description 03/14/2025 Abstract [facility] [address] [place] [phone] Unallocated, Juan Javed MD [address] [place] [address] Social History Tobacco Use Types Packs/Day Years Used Date Smoking Tobacco: Never Assessed Comments Unknown Sex and Gender Information Value Date Recorded Sex Assigned at Not on file Legal Sex Female 7:37 PM EDT Gender Identity Not on file Sexual Orientation Not on file documented as of this encounter Plan of Treatment Upcoming Encounters Date Type Department Care Team (Late st Contact Info) Description 07/10/2025 1:30 PM EDT Office Visit [facility] [address] [place] [address] Alexis Goldberg PA [address] [place] [address] documented as of this encounter Visit Diagnoses Not on filedocumented in this encounter Care Teams Cutter Grinder Operator Relationship Specialty Start Date End Date Unallocated, Juan Javed MD [address] [place] [address] PCP - General Family Medicine 06/06/25 documented as of this encounter
--- OUTSIDE RECORDS SUMMARY | 2025-06-25 13:06 | XMS_ITS | Encounter Summary ---
Author Organization [facility] Address [address] [facility] [place] [address] Care Team Providers Care Banquet Set Up Person Name Role Phone Unallocated, Noms Provider Primary Care Provi michele Reason for Visit * Reason Onset Date Comments OTC Tylenol not working 06/18/2025 Encounter Details Date Type Department Care Team (Late Contact Info) Description [facility] [address] [place] [address] Alexis Goldberg PA [address] [place] [address] OTC Tylenol not working Social History Tobacco Use Types Packs/Day Years Used Date Smoking Tobacco: Never Smokeless Tobacco: Never Alcohol Use Standard Drinks/Week Comments Not Currently 0 (1 standard drink = 0.6 oz pur e alcohol) Comments Unknown Sex and Gender Information Value Date Recorded Sex Assigned at Not on file Legal Sex Female 7:37 PM EDT Gender Identity Not on file Sexual Orientation Not on file documented as of this encounter Miscellaneous Notes * Telephone Encounter - Joelle Lopez - 06/18/2025 11:15 AM EDT Cuca Tejeda's daughter called and said that Cuca is taking OTC Tylenol but its not helping, wanted to know if we can call in something stronger for her. Please advise documented in this encounter Plan of Treatment Upcoming Encounters Date Type Department Care Team (Late Contact Info) Description 07/10/2025 1:30 PM EDT Office Visit [facility] [address] [place] [address] Alexis Goldberg PA [address] [place] [address] documented as of this encounter Visit Diagnoses Not on filedocumented in this encounter Care Teams Banquet Set Up Person Relationship Specialty Start Date End Date Unallocated, Noms Provider, [address] [place] [address] PCP - General Family Medicine 06/06/25 documented as of this encounter
--- OUTSIDE RECORDS SUMMARY | 2025-06-25 13:06 | XMS_ITS | Encounter Summary ---
Author Organization [facility] Address [id number] [address] [place] [address] Care Team Providers Care Lmsw Name Role Phone [facility]lan [facility] Primary Care Provider + Encounter Details Date Type Department Care Team (Late st Contact Info) Description 10/06/2023 Orders Only [facility] Internal [facility] - Family Medicine [address] [place] [address] Stephanie Ley, [facility] [address] LEFT PM 05/14/25 [place] [address] Social History Tobacco Use Types [...] any clubs o r organizations such as alevism groups, unions, fraternal or athletic groups, or [...] Answer Date Recorded Total Score 0 08/17/2023 [facility] of Occupat ional Health - [...] Recorded Do you need help finding a [facility] career center and/or a training program? No 10/05/2022 Hunger Screening Answer Date Recorded Within the past 12 months we worried whether our food would run out before we got money to buy more. Never True 09/28/2023 Within the past 12 months th e food we bought just didn't last and we didn't have money to get more. Never True 09/28/2023 Purpose - Life Answer Date Recorded I [...] Medicine - Family Medicine [address] [place] [address] Jaylan Gray, ROLL FORGER-FRONT LINE LEADER [address], [address] [id number] documented as of this encounter Procedures Procedure Name Priority Date/Time Associated Diagnosis Comments XR CHEST 1 VW Routine 09/30/2023 9:[address] BRAIN WO CONT Routine 09/30/2023 9:21 AM EST documented in this encounter Results * X-ray chest 1 view (09/30/2023 9:23 AM EST) Anatomical Region Laterality Modality Body, Chest N/A Computed Radiogr aphy us Scanning Provider External IMG DIAGNOSTIC IMAGIN G ORDERABLES Final Result * CT brain without contrast (09/30/2023 9:21 AM EST) Anatomical Region Laterality Modality Neuro, Head, Head and Neck, Neuro Covera N/A Computed Tomography us Scanning Provider External IMG CT [...] plan has been documented for the patient 09/20/2023 12:44 PM EST documented as of this encounter Care Teams Lmsw Relationship Specialty Start Date End Date Jaylan Gray, ROLL FORGER-FRONT LINE LEADER [address] [place] [address] PCP - General Nurse Practitioner 05/30/25 documented as of this encounter
--- OUTSIDE RECORDS SUMMARY | 2025-06-25 13:06 | XMS_ITS | Encounter Summary ---
Author Organization [facility] Address [id number] [address] [place] [address] Care Team Providers Care Fringe Weaver Name Role Phone Jaylan Gray APRN-NAVY DIVER Primary Care Provider + Encounter Details Date Type Department Care Team (Late st Contact Info) Description 06/05/2024 [facility] [address] [place] [address] Ref Prov, [place] [address] Social History Tobacco Use Types Packs/Day Years [...] often do you attend chur ch or congregational services? More than 4 times per year 10/05/2022 Do you belong to any clubs o r organizations such as jewish groups, unions, fraternal or athletic groups, or [...] Answer Date Recorded Total Score 0 05/03/2024 [facility] of Occupat ional Health - Occupational Stress [...] - Family Medicine [address] [place] [place] [address] Jaylan Gray, DAY CARE WORKER-NAVY DIVER [address] [place] [address] documented as of this encounter Procedures Procedure Name Priority Date/Time Associated Diagnosis Comments CT BRAIN WO CONT Routine 06/05/2024 3:32 PM EDT XR CHEST 1 VW Routine 06/05/2024 2:33 PM EDT documented in this encounter Results * CT brain without contrast (06/05/2024 3:32 PM EDT) Anatomical Region Laterality Modality Neuro, Head, Head and Neck, Neuro Covera N/A Computed Tomography us Not In System Ref Prov IMG CT ORDERABLES Final R esult * X-ray chest 1 view (06/05/2024 2:33 PM EDT) Anatomical Region Laterality Modality Body, Chest [...] Time PHQ-9 Depression Total Score: 0 05/03/20 2:30 PM EDT A Body Mass Index follow-up plan has been documented for the patient 02/09/2024 2:20 PM EDT documented as of this encounter Care Teams Fringe Weaver Relationship Specialty Start Date End Date Jaylan Gray, DAY CARE WORKER-NAVY DIVER [address] [place] [address] PCP - General Nurse Practitioner 05/30/25 documented as of this encounter
--- OUTSIDE RECORDS SUMMARY | 2025-06-25 13:06 | XMS_ITS ---
[facility] Care Plan Created on: June 12, 2025 Cuca Dee : 1945 Sex: Female Author Organization [employer] Address [address] [place] [address] [address] [place] [address] Phone Health Concerns Health Status CKD 4 Health Concerns None
--- OUTSIDE RECORDS SUMMARY | 2025-06-25 13:06 | XMS_ITS | Encounter Summary ---
Author Organization [facility] tem Address [id number] [address] [place] [address] Care Team Providers Care Game Farm Helper Name Role Phone Isaac Jaylan Vicki JENKINS-POWDER COMPOUNDER Primary Care Provider + Encounter Details Date Type Department Care Team (Late st Contact Info) Description 10/13/2021 [facility] [address] [facility] [address] [address] Thais Pichardo MA Social History Tobacco Use [...] Telephone Encounter - Thais Pichardo MA - 10/13/2021 10:51 AM EST Pt said she went to ER for low blood sugars, granddaughter couldn't get her to wake up, she said they were going to admit her, but no rooms available in [place]. She wants to know what to do about having low blood sugars again. Told her Edja will review and I will let her know. Also, home care called and wanted to be sure, you will sign her orders. Told them yes. * Telephone Encounter - Thais Pichardo MA - 10/13/2021 10:51 AM EST Pt wants me to call her back, after you review * Telephone Encounter - KAIDEN Werner - 10/13/2021 10:51 AM EST Patient adjusts her coverage and evening lantus against prescribed orders. Can you clarify what sheis administered at and what type of meals is she eating? Since her daughter is not in the home, is she eating less? * Telephone Encounter - Thais Pichardo MA - 10/13/2021 10:51 AM EST Ugh, so per Cuca, she is eating better, cause she is eating less. I asked what she is eating, she is eating yogurt for breakfast, so no insulin since # are low. Eating meals on wheels for lunch (6-10 u) and a frozen meal for dinner ( 6-10 u) At bedtime she is using insulin 8 u and levemir 25 u. Says she is following your sliding scale. * Telephone Encounter - Thais Pichardo MA - 10/13/2021 10:51 AM EST [facility] called, they were at home to evaluate today. She said they are gonna do PT, OT,Nursing and add in home health aide to come into the home to help. Told that would be fine per Deja,we tried a couple weeks ago, and pt refused at that time. * Telephone Encounter - KAIDEN Werner - 10/13/2021 10:51 AM EST Please inform patient to decrease night Lantus to 25 units. Remind to eat HS snack * Telephone Encounter - Thais Pichardo MA - 10/13/2021 10:51 AM EST CALLED PT AND SHE IS TAKING 25 U PER PREVIOUS MSG, VERBALLY SPOKE TO DEJA, SHE TOLD ME TO TELL PT 20U. INFORMED PT OF ALL * Telephone Encounter - KAIDEN Werner - 10/13/2021 10:51 AM EST Thank you for clarifying. Her medication list states she is taking 30 units nightly. documented in this encounter Plan of Treatment Upcoming Encounters Date Type Department Care Team (Late st Contact Info) Description 09/05/2025 1:00 PM EDT Office Visit [facility] - Family Medicine [address] [place] [address] Jaylan Gray, SENIOR INVESTMENT MANAGER-POWDER COMPOUNDER [address], [address] [address] documented as of this encounter Visit Diagnoses [...] documented as of this encounter Care Teams Game Farm Helper Relationship Specialty Start Date End Date Jaylan Gray, SENIOR INVESTMENT MANAGER-POWDER COMPOUNDER [address] [place] [address] PCP - General Nurse Practitioner 05/30/25 documented as of this encounter
--- OUTSIDE RECORDS SUMMARY | 2025-06-25 13:06 | XMS_ITS | Encounter Summary ---
Author Organization [email or web address] [facility] tem Address [id number] [address] [place] [address] Care Team Providers Care Reiki Practitioner Name Role Phone Jaylan Gray APRN-SECURITY INCIDENT RESPONSE ENGINEER Primary Care Provider + Reason for Visit * Reason Onset Date Comments Transition Of Care 06/16/2024 Encounter Details Date Type Department Care Team (Late st Contact Info) Description 06/16/2024 [facility] [address] [place] [address] Florencia Bradley, pouncing machine operator Of Care Social History Tobacco Use Types Packs/Day Years Used Date Smoking Tobacco: Never Smokeless Tobacco: Never Alcohol Use Standard Drinks/Week Comments No 0 (1 standard drink = 0.6 oz pur e alcohol) [facility] Utilities Answer Date Recorded In the past 12 months has [employer] electric, gas, oil, or water company threatened [...] often do you attend chur ch or alevism services? More than 4 times per year [...] Answer Date Recorded Total Score 0 05/03/2024 [facility] of Occupat ional Health - Occupational [...] Recorded Do you need help finding a [facility] career center and/or a training program? No 10/05/2022 Hunger Screening Answer Date Recorded Within the past 12 months we worried whether our food would run out before we got money to buy more. Never True 06/13/2024 Within the past 12 months th e food we bought just didn't last and we didn't have money to get more. Never True 06/13/2024 Purpose - Life Answer Date Recorded I [...] Telephone Encounter - Florencia Bradley RN - 06/16/2024 9:43 AM EDT Transition of Care (*required) *Additional Questions/Concerns Requiring PCP Follow-Up: Unable to reach patient This documentation is being used for Transition of Care purposes: Yes Goal: Patient will demonstrate a safe transition from hospital to home Diagnosis on Discharge: Hypoglycemia Reactive airway disease with acute exacerbation Discharge Specialty: Pulmonology *Name of Discharging Facility: [facility] Date of Facility Discharge: Admitted; 06/13/24 Discharged: 06/15/24 Date of Interactive Contact and Name of Metal Cabinet Finisher: 06/16/24 @ 943 am: no answer, left message to return call 06/16/24 @ 151 pm: no answer *Medication Review Completed: Pending provider review START taking: albuterol (PROVENTIL,VENTOLIN) doxycycline (MONODOX) fluticasone propion-salmeteroL (ADVAIR) guaiFENesin (MUCINEX) predniSONE (DELTASONE) STOP taking: hydroCHLOROthiazide 25 mg tablet (HYDRODIURIL) Medication Reconciliation Questions/Concerns: *Follow Up Appointments with Providers: Primary: Stephanie Ley APRN-SECURITY INCIDENT RESPONSE ENGINEER: 06/21/24 Review of Pending Lab/Diagnostic Tests and Plan for Completion: Assessment and Support of Treatment Regimen Adherence and Medication Management: Education Provided by ACN to Support Self-Management, Independent Living and ADLs: Communication with Home Health Agencies and Other Services Utilized/Needed by the Patient: [facility] home care documented in this encounter Plan of Treatment Upcoming Encounters Date Type Department Care Team (Late st Contact Info) Description 09/05/2025 1:00 PM EDT Office Visit [facility] - Family Medicine [address] [place] [address] Jaylan Gray, MANAGER ANALYTICAL-SECURITY INCIDENT RESPONSE ENGINEER [address], [facility] [address] [place] [address] documented as of this encounter Visit Diagnoses [...] documented as of this encounter Care Teams Reiki Practitioner Relationship Specialty Start Date End Date Jaylan Gray, MANAGER ANALYTICAL-SECURITY INCIDENT RESPONSE ENGINEER [address] [place] [address] PCP - General Nurse Practitioner 05/30/25 documented as of this encounter
--- OUTSIDE RECORDS SUMMARY | 2025-06-25 13:06 | XMS_ITS | Encounter Summary ---
Author Organization [employer] [facility] Address [id number] [address] [place] [address] Care Team Providers Care Curer Acid Drum Name Role Phone Jaylan Gray APRN-LAUNDRY AIDE Primary Care Provider + Reason for Visit * Reason Onset Date Comments Phone Encounter 10/05/2023 Encounter Details Date Type Department Care Team (Late st Contact Info) Description 10/05/2023 [facility] [address] [place] [address] Krishna Escoto CMA Phone Encounter Social History Tobacco Use Types Packs/Day Years [...] How often do you attend chur or synagogue services? More than 4 times per year [...] Answer Date Recorded Total Score 0 08/17/2023 [facility] - Occupational Stress Questionnaire Answer Date [...] Recorded Do you need help finding a [facility] and/or a training [...] Telephone Encounter - Krishna Escoto CMA - 10/05/2023 3:43 PM EST [facility] called and Pt has been discharged from hospital and is being seen at home would like your okay to follow pt. RN name is Evangelina and her direct line is [phone] ext [phone]. Thank you * Telephone Encounter - KAIDEN Werner - 10/05/2023 3:43 PM EST I will sign home care orders documented in this encounter Plan of Treatment Upcoming Encounters Date Type Department Care Team (Late st Contact Info) Description 09/05/2025 1:00 PM EDT Office Visit [facility] - Family Medicine [address] [place] [address] Jaylan Gray, ALICE-LAUNDRY AIDE [address] [place] [address] documented as of this encounter Visit Diagnoses [...] documented as of this encounter Care Teams Curer Acid Drum Relationship Specialty Start Date End Date Jaylan Gray, ROD DRAWER-LAUNDRY AIDE [address] [place] [address] PCP - General Nurse Practitioner 05/30/25 documented as of this encounter
--- OUTSIDE RECORDS SUMMARY | 2025-06-25 13:06 | XMS_ITS | Encounter Summary ---
Author Organization [facility] Address [address] [place] [address] Care Team Providers Care Rail Car Mechanic Name Role Phone Unallocated, Noms Provider Primary Care Provi michele Encounter Details Date Type Department Care Team (Late Contact Info) Description 06/14/2025 Abstract [facility] [address] [place] [phone] Unallocated, Noms ProviderMD [address] [place], [place] [id number] Social History Tobacco Use Types Packs/Day Years [...] 07/10/2025 1:30 PM EDT Office Visit [facility] [address] [place] [address] Alexis Goldberg PA [address] [place] [address] documented as of this encounter Visit Diagnoses Not on filedocumented in this encounter Care Teams Rail Car Mechanic Relationship Specialty Start Date End Date Unallocated, Juan Javed MD [address] [place] [address] PCP - General Family Medicine 06/06/25 documented as of this encounter
--- OUTSIDE RECORDS SUMMARY | 2025-06-25 13:06 | XMS_ITS | Encounter Summary ---
Author Organization [facility] [employer] Address [id number] [address] [place] [address] Care Team Providers Care Rail Car Repair Carman Name Role Phone ChrismattJaylan loving APRN-ACTIVITY SPECIALIST Primary Care Provider + Reason for Visit * Reason Onset Date Comments Care Navigation 02/29/2024 Encounter Details Date Type Department Care Team (Late st Contact Info) Description 02/29/2024 [facility] [address] [place] [address] Wendy May, RN Care Navigation Social History Tobacco Use Types Packs/Day Years [...] any clubs o r organizations such as quaker groups, unions, fraternal or athletic groups, or [...] Answer Date Recorded Total Score 0 03/02/2024 [facility] [place] of Occupat ional Health - Occupational Stress [...] Recorded Do you need help finding a [facility] career center and/or a training program? [...] encounter Miscellaneous Notes * Telephone Encounter - eWndy May RN - 02/29/2024 10:19 AM EDT Contact Type: Direct contact - Phone call with patient - general Reason For Call: CN introduction Intervention: CN left message for return call and provided direct line. * Telephone Encounter - Wendy May RN - 02/29/2024 10:19 AM EDT Contact Type: Direct contact - Phone call with patient - general Reason For Call: CN introduction Intervention: CN left 2nd message for return call and provided direct line. documented in this encounter Plan of Treatment Upcoming Encounters Date Type Department Care Team (Late st Contact Info) Description 09/05/2025 1:00 PM EDT Office Visit [facility] - Family Medicine [address] [place] [address] Jaylan Gray, TARGET SETTER-ACTIVITY SPECIALIST [address], [address] [place] [address] documented as of this encounter Visit Diagnoses [...] documented as of this encounter Care Teams Rail Car Repair Carman Relationship Specialty Start Date End Date Jaylan Gray, TARGET SETTER-ACTIVITY SPECIALIST [address] [place] [address] PCP - General Nurse Practitioner 05/30/25 documented as of this encounter
--- OUTSIDE RECORDS SUMMARY | 2025-06-25 13:06 | XMS_ITS | Encounter Summary ---
Author Organization [facility] tem Address [id number] [address] [place] [address] Care Team Providers Care Teletype Or Varitype Keyboard Operator Name Role Phone Jaylan Gray APRN-HEALTH TECHNICIAN HEARING Primary Care Provider + Encounter Details Date Type Department Care Team (Late st Contact Info) Description 10/29/2021 [facility] [address] [facility] [place] [address] Leslie Johnson CMA Social History [...] Telephone Encounter - Leslie Johnson CMA - 10/29/2021 12:02 PM EST Pt's HH nurse called in, said the reason they were going, was Robertas sugars were running high, but now she is having low AM sugars. Pt is on 20 units Levemir at night, and on Wednesday she had a snack on Wednesday evening, fasting sugar in AM was 55. On Wednesday evening she had no snack, and fasting sugar this AM was 59. The sugars are going up throughout the day, but they are concerned numbers are too low in AM. * Telephone Encounter - KAIDEN Werner - 10/29/2021 12:02 PM EST I have attempted to reach out to home care aide and patient- no answer. Please call patient and inform to change Levemir to 15 units every night. Please remind if she does not eat a HS snack, sugars will be low in the morning. What she is eating for meals and snacks will affect blood sugars. I recommend an endocrine referral to manage her diabetes due to continued issues with blood sugar control. * Telephone Encounter - Leslie Johnson CMA - 10/29/2021 12:02 PM EST I have notified Cuca, said her HH nurse will be coming back next week. I will call and leave detailed message for her. documented in this encounter Plan of Treatment Upcoming Encounters Date Type Department Care Team (Late st Contact Info) Description 09/05/2025 1:00 PM EDT Office Visit [facility] - Family Medicine [address] [place] [id number] Jaylan Gray, ALICE-HEALTH TECHNICIAN HEARING [address], [address] [address] documented as of this encounter [...] documented as of this encounter Care Teams Teletype Or Varitype Keyboard Operator Relationship Specialty Start Date End Date Jaylan Gray, MARKETING STRATEGIST-HEALTH TECHNICIAN HEARING [address] [place] [address] PCP - General Nurse Practitioner 05/30/25 documented as of this encounter
--- OUTSIDE RECORDS SUMMARY | 2025-06-25 13:06 | XMS_ITS | Encounter Summary ---
Author Organization [employer] [facility] tem Address [facility]-[id number] [address] [place] [address] Care Team Providers Care Director Of Healthcare Systems Name Role Phone Jaylan Gray CARBON SETTER-HOSPICE RN Primary Care Provider + Encounter Details Date Type Department Care Team (Late st Contact Info) Description 09/06/2023 Telephone [facility] - Family Medicine [address] [place] [address] Stephanie Ley, CARBON SETTER-[facility] [address] LEFT PM 05/14/25 [place] [address] Social History Tobacco Use Types [...] often do you attend chur ch or temple services? More than 4 times per year 10/05/2022 Do you belong to any clubs o r organizations such as congregational groups, unions, fraternal or athletic groups, or [...] Answer Date Recorded Total Score 0 08/17/2023 [facility] of Occupat ional Health - Occupational Stress [...] * Telephone Encounter - Cinda Garrison - 09/06/2023 2:11 PM EDT Karla from [facility] pt called and said that she completed care on the pt but the pt would actuallylike to [facility] * Telephone Encounter - KAIDEN Werner - 09/06/2023 2:11 PM EDT Thank you for update. If I need to sign anything, they will send documented in this encounter Plan of Treatment Upcoming Encounters Date Type Department Care Team (Late st Contact Info) Description 09/05/2025 1:00 PM EDT Office Visit [facility] Medicine - Family Medicine [address] [place] [address] Jaylan Gray, ALICE-HOSPICE RN [address], [address] [address] documented as of this encounter Visit Diagnoses [...] of this encounter Care Teams Director Of Healthcare Systems Relationship Specialty Start Date End Date Jaylan Gray, CARBON SETTER-HOSPICE RN [address] [place] [address] PCP - General Nurse Practitioner 05/30/25 documented as of this encounter
--- OUTSIDE RECORDS SUMMARY | 2025-06-25 13:06 | XMS_ITS | Encounter Summary ---
Author Organization [facility] [employer] tem Address [id number] [address] [place] [address] Care Team Providers Care Software Engineer Web Services Name Role Phone Jaylan Gray APRN-LONG HAUL TRUCK DRIVER Primary Care Provider + Encounter Details Date Type Department Care Team (Late st Contact Info) Description 05/29/2024 [facility]phone [facility] [address] [place] [address] Alice Morrison CMA Social History [...] How often do you attend chur or baptist services? More than 4 times per year 10/05/2022 Do you belong to any clubs o r organizations such as yarsanism groups, unions, fraternal or athletic groups, or [...] Answer Date Recorded Total Score 0 05/03/2024 [facility] of Occupat ional Health - Occupational [...] Recorded Do you need help finding a [facility] career center and/or a training program? [...] Telephone Encounter - Alice Morrison CMA - 05/29/2024 2:07 PM EDT Pts daughter called requesting pts mood stabalizer to be changed or upped , pt is being mean, nasty, bitting heads off and forgetting things , both daughters are at witts end * Telephone Encounter - KAIDEN Werner - 05/29/2024 2:07 PM EDT She will need a visit, possibly a video would be fine. * Telephone Encounter - Alice Morrison CMA - 05/29/2024 2:07 PM EDT Called pts daughter she is going to call back after she talks to pt documented in this encounter Plan of Treatment Upcoming Encounters Date Type Department Care Team (Late st Contact Info) Description 09/05/2025 1:00 PM EDT Office Visit [facility] - Family Medicine [address] [place] [address] Jaylan Gray, ALICE-LONG HAUL TRUCK DRIVER [address], [facility] [address] [place] [address] documented as of this encounter Visit Diagnoses [...] documented as of this encounter Care Teams Software Engineer Web Services Relationship Specialty Start Date End Date Jaylan Gray, LABORER CARPENTRY DOCK-LONG HAUL TRUCK DRIVER [address] [place] [address] PCP - General Nurse Practitioner 05/30/25 documented as of this encounter
--- OUTSIDE RECORDS SUMMARY | 2025-06-25 13:06 | XMS_ITS | Encounter Summary ---
Author Organization [facility] Address [address] [place] [address] Care Team Providers Care Castings Drafter Name Role Phone Unallocated, Noms Provider Primary Care Provi michele Reason for Visit * Reason Onset Date Comments wants to know if she can do outpatient wants to be referred 06/21/2025 Encounter Details Date Type Department Care Team (Late st Contact Info) Description 06/21/2025 [facility]phone [facility] [place] [facility] [address] [place] [address] Alexis Goldberg PA [address] [place] [address] wants to know if she can do outpatient wants to be referred Social History Tobacco Use Types Packs/Day Years [...] encounter Miscellaneous Notes * Telephone Encounter - RONNA Barber - 06/24/2025 9:47 PM EDT Eventually we possibly will, but currently we still need to give her fracture time to heal.. Continued activity modifications with the use of a walker were recommended, avoiding forceful hip abduction or adduction until further healing occurs. Ambulate as tolerated but finds most relief withseated wheelchair use. Encouraged to use a walker at all times if ambulating with a 1-1 assist to pr event falls. * Telephone Encounter - Joelle Lopez - 06/21/2025 10:58 AM EDT Cuca Tejeda's daughter called, she wants to know if they can have outpatient therapy here in [place] at [facility] [place] [facility] advise documented in this encounter Plan of Treatment Upcoming Encounters Date Type Department Care Team (Late st Contact Info) Description 07/10/2025 1:30 PM EDT Office Visit [facility] [address] [place] [address] Alexis Goldberg PA [address] [place] [address] documented as of this encounter Visit Diagnoses Not on filedocumented in this encounter Care Teams Castings Drafter Relationship Specialty Start Date End Date Unallocated, Andrea Javed MD [address] [place] [address] PCP - General Family Medicine 06/06/25 documented as of this encounter
--- OUTSIDE RECORDS SUMMARY | 2025-06-25 13:06 | XMS_ITS | Clinical Summary ---
Author Organization [facility] Address [address] [place] [address] Care Team Providers Care Nutritionists Name Role Phone Unallocated, Noms Provider Primary Care Provi michele Allergies No known active allergies Medications acetaminophen (Tylenol) 500 MG tablet Take 1,000 mg by mouth every 6 (six) hours if needed Active amLODIPine (Norvasc) 5 MG tablet Take 5 mg by mouth Daily Active aspirin 81 MG chewable tablet Chew 81 mg Daily Active atorvastatin (Lipitor) 10 MG tablet Take 10 mg by mouth at bedtime 5 Active cefuroxime (Ceftin) 250 MG tablet Take 250 mg by mouth Daily Active ferrous sulfate 325 (65 Fe) MG tablet Take 325 mg by mouth 1 (one) time each day at the same time Active furosemide (Lasix) 20 MG tablet Take 20 mg by mouth in the morning. 5 Active gabapentin (Neurontin) 300 MG capsule Take 300 mg by mouth in the morning and 300 mg in the evening. 4 Active glucose blood (OneTouch Ultra Test) test strip OneTouch Ultra Test strips 1 STRIP BY OTHER ROUTE 4 (FOUR) TIMES A DAY BEFORE MEALS AND NIGHTLY. Active hydroCHLOROthia zide (HYDRODiuril) 25 MG tablet Take 1 tablet by mouth Daily Active insulin aspart FlexPen (NovoLOG) 100 UNIT/ML pen Inject under the skin 3 (three) times a day with meals 5 Active insulin detemir (Levemir) 100 UNIT/ML pen Inject 15 Units under the skin at bedtime 4 Active insulin glargine (Lantus SoloStar) 100 UNIT/ML pen Inject under the skin 5 Active insulin lispro (HumaLOG) 100 UNIT/ML injection Inject under the skin Active letrozole (Femara) 2.5 MG chemo tablet Take 2.5 mg by mouth Daily. 5 01/21/20 26 Active Lidocaine 4 % patch Place 1 patch on the skin 1 (one) time each day at the same time 5 Active lisinopril 5 MG tablet Take 5 mg by mouth Daily Active metoprolol tartrate (Lopressor) 50 MG tablet Take 1 tablet by mouth in the morning and 1 tablet before bedtime. Active mirtazapine (Remeron) 7.5 MG tablet Take 7.5 mg by mouth at bedtime 5 Active nystatin (Mycostatin) 288463 UNIT/GM powder Apply 1 Application topically in the morning and 1 Application at noon and 1 Application in the evening and 1 Application before bedtime. 4 Active oxybutynin (Ditropan) 5 MG tablet Take 1 tablet by mouth Daily Active pantoprazole (ProtoNix) 40 MG packet Take 40 mg by mouth in the morning. Take before meals. Active sertraline (Zoloft) 100 MG tablet Take 100 mg by mouth in the morning. 5 Active SITagliptin (Januvia) 25 MG tablet Take 25 mg by mouth Daily Active traZODone (Desyrel) 100 MG tablet Take 1 tablet by mouth at bedtime 4 Active Active Problems No known active problems Encounters Date Type Department Care Team Description 06/21/[address] [facility] [address] [place] [address] Alexis Goldberg PA wants to know if she can do outpatient wants to be referred 06/18/[address] [facility] [address] [place] [address] Alexis Goldberg PA OTC Tylenol not working 06/14/2025 [facility] [address] [place] [address] Unallocated, Juan Javed MD 06/06/2025 1:35 PM EDT Ancillary Procedure [facility] [address] [place] [address] 06/06/2025 1:30 PM EDT Office Visit [facility] [address] [place] [address] Alexis Goldberg PA Acute right hip pain (Primary Dx); Acute pain of both hips; Closed avulsion fracture of right hip with routine healing, subsequent encounter 06/06/[address] [facility] [address] [place] [address] Alexis Goldberg PA 06/06/2025 Travel from Last 3 Months Social History Tobacco Use Types Packs/Day Years Used Date Smoking Tobacco: Never Smokeless Tobacco: Never Tobacco Cessation:Counseling Given: Not Answered Alcohol Use Standard Drinks/Week Comments Not Currently 0 (1 standard drink = 0.6 oz pur e alcohol) Comments Unknown Sex and Gender Information Value Date Recorded Sex Assigned at Not on file Legal Sex Female 7:37 PM EDT Gender Identity Not on file Sexual Orientation Not on file Last Filed Vital Signs Vital Sign Reading Time Taken Comments Blood Pressure 110/60 05/03/2023 3:32 PM EDT Pulse 66 05/03/2023 3:32 PM EDT Temperature - - Respiratory Rate 18 05/03/2023 3:32 PM EDT Oxygen Saturation 93% 05/03/2023 3:32 PM EDT Inhaled Oxygen Concentration - - Weight 85.7 kg (189 lb) 06/06/2025 1:25 PM EDT Height 165.1 cm (5' 5 ) 06/06/2025 1:25 PM EDT Body Mass Index 31.45 06/06/2025 1:25 PM EDT Plan of Treatment Upcoming Encounters Date Type Department Care Team (Late st Contact Info) Description 07/10/2025 1:30 PM EDT Office Visit [facility] [address] [place] [address] Alexis Goldberg PA [address] [place] [address] Health Maintenance Due Date Last Done Comments Diabetes: Retinopathy Screening 1955 Medicare Annual Wellness (AWV) 08/10/2024 0 08/10/2023, 08/06/2022, 05/28/2021, Additional history exists Diabetes: Hemoglobin A1C 03/04/2025 025, 04/13/2024, 04/25/2021, Additional history exists Influenza Vaccine (#1) 2025 4, 08/10/2023, 08/06/2022, Additional history exists Diabetes: Urine Protein Screening 02/03/2026 02/03/2025, 02/03/2025, 07/16/2023, Additional history exists Pneumococcal Vaccine: 65+ Years Completed 05/28/2021, 05/16/2020, 07/10/2015, Additional history exists Procedures Procedure Name Priority Date/Time Associated Diagnosis Comments XR PELVIS 1-2 VIEWS Routine 06/06/2025 1 :33 PM EDT Acute right hip pain from Last 3 Months Results * XR pelvis 1 or 2 views (06/06/2025 1:33 PM EDT) Anatomical Region Laterality Modality Body, Pelvis Radiographic Francy ging Narrative 06/06/2025 4:31 PM EDT Imaging Result: AP Pelvis Osteopenia noted Mild distraction of less trochanteric avulsion fracture. Soft tissue vascular calcifications are prominent No effusion. Remote sclerotic changes from pubic ramus fracture bilaterally with mild degenerative changes of hip Impression: stable appearing right hip lesser trochanteric avulsion fracture. us Alexis FRIEND IMG XR PROCEDURES Edited Resu lt - Final from Last 3 Months Insurance [employer] [place]ICAID [place] Care Teams Nutritionists Relationship Specialty Start Date End Date Unallocated, Noms Provider, [address] [place] [address] PCP - General Family Medicine 06/06/25
--- OUTSIDE RECORDS SUMMARY | 2025-06-25 13:06 | XMS_ITS | Encounter Summary ---
Author Organization [facility] Sys tem Address [id number] [address] [place] [address] Care Team Providers Care Flake Cutter Operator Name Role Phone Jaylan Gray APRN-MISSILE INSPECTOR Primary Care Provider + Encounter Details Date Type Department Care Team (Late st Contact Info) Description 02/29/2024 Orders Only [facility] - Family Medicine [address] [place] [address] External, Scanning Provider Social History Tobacco Use [...] often do you attend chur ch or denominational services? More than 4 times per year 10/05/2022 Do you belong to any clubs o r organizations such as nondenominational groups, unions, fraternal or athletic groups, or [...] you are drinking? Patient does not drink 3 Q3: How often do you have si x or more drinks on one occasion? Never 08/17/2023 Overall Financial Resource Strain (CARDIA) Answe r Date Recorded How hard is it for you to pa y for the very basics like food, housing, medical care, and heating? Not hard at all 08/31/2023 PHQ-2 Answer Date Recorded Total Score 0 03/02/2024 [facility] of Occupat ional Health - [...] Do you need help finding a [facility] career center and/or a training [...] Medicine - Family Medicine [address] [place] [address] Jaylan Gray, ONLINE EDITOR-MISSILE INSPECTOR [address], [facility] [address] [place] [address] documented as of this encounter Procedures Procedure Name Priority Date/Time Associated Diagnosis Comments VASC VENOUS DUPLEX LOWER BILATERAL Routine 02/28/2024 2:01 PM EDT ECHO COMPLETE WO CONTRAST Routine 02/27/2024 1:[address] BRAIN WO CONT Routine 02/27/2024 1:[address] CTA CAROTID Routine 02/27/2024 1:[address] CTA HEAD Routine 02/27/2024 1:[address] BRAIN WO CONT STROKE ALERT STAT Reading 02/27/2024 1:53 PM EDT documented in this encounter Results * Vas venous duplex lwr bilateral (02/28/2024 2:01 PM EDT) Anatomical Region Laterality Modality Vascular Bilateral Ultrasound us Scanning Provider External CV VASCULAR ORDERABLE S Final Result * Echo complete W/O contrast (02/27/2024 1:58 PM EDT) Anatomical Region Laterality Modality Chest N/A Ultrasound us Scanning Provider External CV ECHO ORDERABLES Fi nal Result * CT brain without contrast (02/27/2024 1:56 PM EDT) Anatomical Region Laterality Modality Neuro, Head, Head and Neck, Neuro Covera N/A Computed Tomography us Scanning Provider External IMG CT ORDERABLES Fin al Result * CT angiogram carotid (02/27/2024 1:55 PM EDT) Anatomical Region Laterality Modality Neuro, Neck, Vascular, Neuro Covera N/A Computed Tomography us Scanning Provider External IMG CT ORDERABLES Fin al Result * CT angiogram head (02/27/2024 1:54 PM EDT) Anatomical Region Laterality Modality Head, Neuro, Vascular, Head and Neck, Neuro Navarre ra N/A Computed Tomography us Scanning Provider External IMG CT ORDERABLES Fin al Result * CT brain without contrast stroke alert (02/27/2024 1:53 PM EDT) Anatomical Region Laterality Modality Neuro, [...] documented as of this encounter Care Teams Flake Cutter Operator Relationship Specialty Start Date End Date Jaylan Gray, ONLINE EDITOR-MISSILE INSPECTOR [address] [place] [address] PCP - General Nurse Practitioner 05/30/25 documented as of this encounter
--- OUTSIDE RECORDS SUMMARY | 2025-06-25 13:06 | XMS_ITS | Encounter Summary ---
Author Organization [facility] Address [id number] [address] [place] [address] Care Team Providers Care Bright Cutter Name Role Phone Jaylan Gray APRN-BATTERY TECHNICIAN Primary Care Provider + Encounter Details Date Type Department Care Team (Late st Contact Info) Description 09/30/2023 [facility]phone [facility] [address] [place] [address] Deja Mojica CMA Social History [...] How often do you attend chur or yazidi services? More than 4 times per year 10/05/2022 Do you belong to any clubs o r organizations such as yarsani groups, unions, fraternal or athletic groups, or [...] Answer Date Recorded Total Score 0 08/17/2023 [facility] of Occupat ional Health - Occupational Stress [...] Telephone Encounter - Deja Mojica CMA - 09/30/2023 1:36 PM EST Pt daughter called and stated that her UTI is no better. Whatever antibiotic the ER has her taking is not helping. She wanted to know if you would call in another antibiotic. * Telephone Encounter - KAIDEN Werner - 09/30/2023 1:36 PM EST Can you inquire why she feels is not any better? Symptoms? The antibiotic she is taking is what hernephrologist recommends for her. * Telephone Encounter - Deja Mojica CMA - 09/30/2023 1:36 PM EST Pt is barely drinking fluids and is confused still. No output barely * Telephone Encounter - KAIDEN Werner - 09/30/2023 1:36 PM EST She will either need to come in to be seen or seek ER unfortunately. Recently had heart surgery. * Telephone Encounter - Deja Mojica CMA - 09/30/2023 1:36 PM EST Pt daughter called and said she is in [place] and will be probably going to [place] * Telephone Encounter - KAIDEN Werner - 09/30/2023 1:36 PM EST Can you retrieve Geetha notes for me please. * Telephone Encounter - Deja Mojica CMA - 09/30/2023 1:36 PM EST Received notes documented in this encounter Plan of Treatment Upcoming Encounters Date Type Department Care Team (Late st Contact Info) Description 09/05/2025 1:00 PM EDT Office Visit [facility] - Family Medicine [address] [place] [address] Jaylan Gray, [facility] [address], [place] [id number] documented as of this encounter Visit Diagnoses [...] documented as of this encounter Care Teams Bright Cutter Relationship Specialty Start Date End Date Jaylan Gray, BUILDING SERVICEMAN-BATTERY TECHNICIAN [address] [place] [address] PCP - General Nurse Practitioner 05/30/25 documented as of this encounter
--- OUTSIDE RECORDS SUMMARY | 2025-06-25 13:06 | XMS_ITS | Encounter Summary ---
Author Organization [employer] s tem Address [facility] [place]-[id number] [address] [place] [address] Care Team Providers Care Radiology Specialist Name Role Phone Jaylan Gray APRN-BACK TENDER INSULATION BOARD Primary Care Provider + Reason for Visit * Reason Onset Date Comments Transition Of Care 08/25/2024 Encounter Details Date Type Department Care Team (Late st Contact Info) Description 08/25/2024 [facility] [address] [place] [id number] Florencia Bradley, team otr truck driver Of Care Social History Tobacco Use Types Packs/Day Years Used Date Smoking Tobacco: Never Smokeless Tobacco: Never Alcohol Use Standard Drinks/Week Comments No 0 (1 standard drink = 0.6 oz pur e alcohol) [facility] Utilities Answer Date Recorded In the past 12 months has [employer] electric, gas, oil, or water company threatened [...] any clubs o r organizations such as catholic groups, unions, fraternal or athletic groups, [...] Answer Date Recorded Total Score 0 08/28/2024 [facility] of Occupat ional Health - Occupational Stress [...] Telephone Encounter - Florencia Bradley RN - 08/25/2024 10:59 AM EDT Transition of Care (*required) *Additional Questions/Concerns Requiring PCP Follow-Up: Patient's DC med [...] on Discharge: Hypoglycemia AMS Discharge Specialty: Endocrine *Name of Discharging Facility: [facility] Date of Facility Discharge: Admitted: 08/23/24 Discharged: 08/24/24 Date of Interactive Contact and Name of Supervisor Finishing Room: 08/25/24 Spoke with patient's daughter, Ileana *Medication Review Completed: Yes CHANGE how you take: insulin detemir U-100 (LEVEMIR) Medication Reconciliation Questions/Concerns: *Follow Up Appointments with Providers: Primary: Stephanie Ley, AUTOMATIC PROFILE SHAPER OPERATOR-BACK TENDER INSULATION BOARD: 08/28/24 Specialty: Endocrinology (Christiano): TBD Review of [...] care SOC: not scheduled at this time documented in this encounter Plan of Treatment Upcoming Encounters Date Type Department Care Team (Late st Contact Info) Description 09/05/2025 1:00 PM EDT Office Visit [facility] Internal Medicine - Family Medicine [address] [place] [address] Jaylan Gray, AUTOMATIC PROFILE SHAPER OPERATOR-BACK TENDER INSULATION BOARD [address], [address] [address] documented as of this encounter Visit Diagnoses Not on filedocumented in this encounter Additional Health Concerns Infection Onset Date Last Indicated Resolved Time COVID-19 Positive 08/12/2024 08/12/2024 09/02/2024 11:12 PM EDT COVID-19 Rule-Out 11/09/2024 11/09/2024 11/09/2024 7:48 AM EST Respiratory Rule-Out 02/12/2025 02/12/2025 025 1:47 PM EDT Assessment Noted Time PHQ-9 Depression Total Score: 0 06/21/20 24 2:46 PM EDT A Body Mass Index follow-up plan has been documented for the patient 02/09/2024 2:20 PM EDT documented as of this encounter Care Teams Radiology Specialist Relationship Specialty Start Date End Date Jaylan Gray, AUTOMATIC PROFILE SHAPER OPERATOR-BACK TENDER INSULATION BOARD [address] [place] [address] PCP - General Nurse Practitioner 05/30/25 documented as of this encounter
--- OUTSIDE RECORDS SUMMARY | 2025-06-25 13:06 | XMS_ITS ---
[employer] Care Plan Created on: June 12, 2025 Cuca Dee : 1945 Sex: Female Author Organization [employer] Address [address] [place] [address] [address] [place] [address] Phone Health Concerns Health Status CKD 4 Health Concerns None
--- OUTSIDE RECORDS SUMMARY | 2025-06-25 13:06 | XMS_ITS | Encounter Summary ---
Author Organization [facility] Address [id number] [address] [place] [address] Care Team Providers Care Cone Machine Operator Name Role Phone Jaylan Gray APRN-TRUCK GUARD Primary Care Provider + Encounter Details Date Type Department Care Team (Late st Contact Info) Description 04/06/2024 Orders Only [facility] Internal Medicine - Family Medicine [address] [place] [phone] External, Scanning Provider Social History Tobacco Use [...] often do you attend chur ch or restorationist services? More than 4 times per year 10/05/2022 Do you belong to any clubs o r organizations such as evangelical groups, unions, fraternal or athletic groups, or [...] Answer Date Recorded Total Score 0 03/02/2024 [facility] of Occupat ional Health - Occupational [...] Recorded Do you need help finding a the orthopedic specialty hospital career center and/or a training program? [...] Medicine - Family Medicine [address] [place] [address] Jaylan Gray, MEDICAL TECHNOLOGIST MICROBIOLOGY-TRUCK GUARD [address], [address] [place] [address] documented as of this encounter Procedures Procedure Name Priority Date/Time Associated Diagnosis Comments XR CHEST 2 VWS Routine 04/05/2024 9:27 AM EDT documented in this encounter Results * X-ray chest 2 views (04/05/2024 9:27 AM EDT) Anatomical Region Laterality Modality Body, Chest N/A Computed Radiogr aphy us Scanning Provider External IMG DIAGNOSTIC IMAGIN G ORDERABLES Final Result documented in this encounter Visit [...] Noted Time PHQ-9 Depression Total Score: 0 03/02/20 24 2:39 PM EDT A Body Mass Index follow-up plan has been documented for the patient 02/09/2024 2:20 PM EDT documented as of this encounter Care Teams Cone Machine Operator Relationship Specialty Start Date End Date Jaylan Gray, ALICE-TRUCK GUARD [address] [place] [address] PCP - General Nurse Practitioner 05/30/25 documented as of this encounter
--- OUTSIDE RECORDS SUMMARY | 2025-06-25 13:06 | XMS_ITS | Encounter Summary ---
Author Organization [facility] [employer] s tem Address [facility] [place]-[id number] [address] [place] [address] Care Team Providers Care Magazine Supervisor Name Role Phone Jaylan Gray APRN-ASPHALT DISTRIBUTOR OPERATOR Primary Care Provider + Encounter Details Date Type Department Care Team (Late st Contact Info) Description 02/28/2024 [facility] [address] [place] [address] Alice Morrison CMA Social History [...] How often do you attend chur or church services? More than 4 times per year [...] Answer Date Recorded Total Score 0 03/02/2024 [facility] of Occupat ional Health - Occupational Stress [...] Telephone Encounter - Alice Morrison CMA - 02/28/2024 5:13 PM EDT Annie from [facility] called wanting to know if you would follow this patient once she if discharged from [facility] ? [phone] opt 1 * Telephone Encounter - KAIDEN Werner - 02/28/2024 5:13 PM EDT yes * Telephone Encounter - Alice Morrison CMA - 02/28/2024 5:13 PM EDT I called and confirmed that you would follow documented in this encounter Plan of Treatment Upcoming Encounters Date Type Department Care Team (Late st Contact Info) Description 09/05/2025 1:00 PM EDT Office Visit [facility] Internal Medicine - Family Medicine [address] [place] [address] Jaylan Gray, ALICE-ASPHALT DISTRIBUTOR OPERATOR [address], [address] [address] documented as of this encounter Visit Diagnoses [...] documented as of this encounter Care Teams Magazine Supervisor Relationship Specialty Start Date End Date Jaylan Gray, BIRD TRAPPER-ASPHALT DISTRIBUTOR OPERATOR [address] [place] [address] PCP - General Nurse Practitioner 05/30/25 documented as of this encounter
[2025-06-25 13:29] LABS: Hematocrit 33.6 % (36.0-48.0); Hemoglobin 10.8 g/dL (12.0-16.0); Immature Granulocytes Abs Auto 0.05 10^3/uL (0.00-0.03); Immature Granulocytes Pct Auto 0.6 % (0.0-0.5); Lymphocytes Absolute Auto 1.5 10^3/uL (1.2-3.8); Mean Corpuscular HGB Conc 32.1 g/dL (29.9-35.2); Mean Corpuscular Hemoglobin 27.0 pg (26.7-34.0); Mean Corpuscular Volume 84.0 fL (81.0-99.0); Platelet Count 412 10^3/uL (150-450); Red Blood Count 4.00 10^6/uL (4.20-5.40); White Blood Count 8.8 10^3/uL (4.0-11.0)
[2025-06-25 13:41] LABS: Anion Gap 11.2; Blood Urea Nitrogen 21.0 mg/dL (7.0-18.0); Calcium 10.3 mg/dL (8.5-10.1); Carbon Dioxide 29.2 mmol/L (21.0-32.0); Chloride 96 mmol/L (98-107); Estimated GFR (African America 43 (>=60 mL/min/1.73m^2); Estimated GFR (Non-African Ame 35 (>=60 mL/min/1.73m^2); Glucose 202 mg/dL (74-106); Potassium 4.4 mmol/L (3.5-5.1); Sodium 132 mmol/L (136-145)
[2025-06-25 13:48] LABS: Lactate/Lactic Acid 1.4 mmol/L (0.4-2.0)
[2025-06-25 13:49] LABS: Glucose Urine UA NEGATIVE (NEGATIVE)
--- NOTE | 2025-06-25 13:57 | CT_ITS ---
The [address] [address] Patient Name: TERESA GOODWIN MRN: [id number] date: 1945 Sex: F Assigned Patient Location: ER Current Patient Location: Accession/Order Number: [id number] Exam Date: 06/25/2025 14:13 Report Date: 06/25/2025 14:16 At the request of: RICKEY VIDAL MD Procedure: CT head/brain wo con CT BRAIN WITHOUT CONTRAST: CLINICAL HISTORY: Confusion COMPARISON: 10/11/2024 TECHNIQUE: Contiguous axial unenhanced images were obtained through the brain. This CT exam was performed using one or more following dose reduction techniques: Automated exposure control, adjustment of the mA and/or kV according to patient size, or use of iterative reconstruction technique. FINDINGS: Right frontal approach shunt catheter tip terminating near the level of the foramina of [place]. Stable ventricular megaly with transverse measurement third ventricle measuring 1.3 cm, previously 1.3 cm. Stable hypoattenuation along the shunt catheter within the right frontal lobe Possibly related to gliosis. Otherwise [id number] chronic small vessel changes. Right caudate head lacunar type stroke. Cisterns are patent. Vascular calcifications. No calvarial fracture.. Mastoids are clear. CT/CT head/brain wo con IMPRESSION: NO ACUTE INTRACRANIAL ABNORMALITY. STABLE SHUNTED VENTRICULOMEGALY. STABLE CHRONIC SMALL VESSEL CHANGES Impression dictated by: Derek Perla M.D. 06/25/2025 2:16 PM Dictation Location: [place] [address] Electronically authenticated by: [id number] Y Date: 06/25/2025 14:16
--- NOTE | 2025-06-25 13:57 | XR_ITS ---
The [address] [address] Patient Name: TERESA GOODWIN MRN: [id number] date: 1945 Sex: F Assigned Patient Location: ER Current Patient Location: ER Accession/Order Number: [id number] Exam Date: 06/25/2025 14:08 Report Date: 06/25/2025 14:10 At the request of: RICKEY VIDAL MD Procedure: XR chest 1V PA CHEST: CLINICAL HISTORY: Confusion COMPARISON: 10/11/2024 Borderline cardiac silhouette. Previous TAVR. Lungs are clear. No effusion or pneumothorax. DIGESTER CAPPER shunt catheter projects over the right hemithorax. IMPRESSION: NEGATIVE FOR ACUTE PLEURAL-PARENCHYMAL DISEASE. Impression dictated by: Derek Perla M.D. 06/25/2025 2:10 PM Dictation Location: [place] [address] Electronically authenticated by: [id number] Y Date: 06/25/2025 14:10
[2025-06-25 13:58] LABS: Cast Seen? NONE SEEN #/LPF (NONE SEEN); Crystals Seen? None Seen #/HPF (None Seen); Urine Culture Indicated YES-FRMC
[2025-06-25] MEDS: ACETAMINOPHEN 325 MG TABLET 650 MG PO (18:14)
[2025-06-25] MEDS: 0.9 % SODIUM CHLORIDE 1,000 ML 100 ML IV (18:14)
[2025-06-25] MEDS: CLOPIDOGREL BISULFATE 75 MG TABLET PO (18:14)
[2025-06-25] MEDS: ENOXAPARIN SODIUM 30 MG/0.3 ML SYRINGE SUBQ (18:14)
[2025-06-25] MEDS: PANTOPRAZOLE SODIUM 40 MG TABLET.DR PO (22:17)
[2025-06-25] MEDS: TRAZODONE HCL 50 MG TABLET 25 MG PO (22:17)
[2025-06-25] MEDS: ATORVASTATIN CALCIUM 20 MG TABLET PO (22:17)
[2025-06-25] MEDS: ASPIRIN 81 MG TAB.CHEW PO (22:18)
[2025-06-25] MEDS: INSULIN ASPART 300 UNIT/3 ML PEN SUBQ (22:26)
[2025-06-25] MEDS: INSULIN GLARGINE 300 UNIT/3 ML INSULN.PEN 20 UNIT SQ (22:26)
[2025-06-26] VITALS (9 sets, daily range): BP systolic 112–139; BP diastolic 66–77; PULSE 68–85; TEMP 36.4–37; O2SAT 90–94
[2025-06-26] MEDS: ALPRAZOLAM 0.5 MG TABLET PO (01:01)
[2025-06-26] MEDS: PANTOPRAZOLE SODIUM 40 MG TABLET.DR PO (05:42)
[2025-06-26 05:52] LABS: Hematocrit 34.8 % (36.0-48.0); Hemoglobin 11.1 g/dL (12.0-16.0); Immature Granulocytes Abs Auto 0.03 10^3/uL (0.00-0.03); Immature Granulocytes Pct Auto 0.4 % (0.0-0.5); Lymphocytes Absolute Auto 2.1 10^3/uL (1.2-3.8); Mean Corpuscular HGB Conc 31.9 g/dL (29.9-35.2); Mean Corpuscular Hemoglobin 27.0 pg (26.7-34.0); Mean Corpuscular Volume 84.7 fL (81.0-99.0); Platelet Count 397 10^3/uL (150-450); Red Blood Count 4.11 10^6/uL (4.20-5.40); White Blood Count 8.3 10^3/uL (4.0-11.0)
[2025-06-26 06:11] LABS: Alanine Aminotransferase 27 U/L (14-59); Albumin Globulin Ratio 0.6; Albumin Level 3.3 g/dL (3.4-5.0); Alkaline Phosphatase 175 U/L (46-116); Anion Gap 14.2; Aspartate Amino Transferase 31 U/L (15-37); Blood Urea Nitrogen 22.0 mg/dL (7.0-18.0); Calcium 10.4 mg/dL (8.5-10.1); Carbon Dioxide 29.8 mmol/L (21.0-32.0); Chloride 98 mmol/L (98-107); Estimated GFR (African America 48 (>=60 mL/min/1.73m^2); Estimated GFR (Non-African Ame 40 (>=60 mL/min/1.73m^2); Globulin 5.5 g/dL; Glucose 124 mg/dL (74-106); Magnesium 1.8 mg/dL (1.8-2.4); Potassium 4.0 mmol/L (3.5-5.1); Sodium 138 mmol/L (136-145); Total Protein 8.8 g/dL (6.4-8.2)
[2025-06-26] MEDS: SERTRALINE HCL 100 MG TABLET PO (09:00)
[2025-06-26] MEDS: METOPROLOL SUCCINATE 25 MG TAB.ER.24H PO (09:00)
[2025-06-26] MEDS: CLOPIDOGREL BISULFATE 75 MG TABLET PO (09:00)
[2025-06-26] MEDS: ASPIRIN 81 MG TAB.CHEW PO (09:00)
--- NOTE | 2025-06-26 09:52 | CM.NOTE ---
Rounds made with Dr. Wills. Dr. Wills reviews plan of care. Plan for additional day of IV antibiotics. No discharge likely today.
--- NOTE | 2025-06-26 09:59 | PM.HP ---
HPI H&P: HPI History of Present Illness Chief complaint: CONFUSION, UTI, AMS Narrative: Mrs. Dee is a 80-year-old female with a history of hypertension, CKD and breast cancer. She was brought to the emergency room due to worsening lethargy, confusion and disorientation. She was found to have UTI. No fever or chills. No seizure or convulsion. No vomiting. No chest pain or abdominal pain. Patient is a poor historian. She is currently sitting in bed. She is crying and wants to go home. She was wearing hospital Opioid HPI Opioid Management Most Recent Pain and Opioid Data: Last Pain Scale 5 06/25/25, 18:14 Last Pain Intensity 2 04/07/24, 10:58 Last Pain Assessment 06/25/25, 16:36 Last MAR Pain Assessment 06/25/25, 18:14 Last ORT Total Score 0 06/25/25, 16:36 Last ORT Risk Category Low Risk 06/25/25, 16:36 [facility] Medical History (Updated 06/26/25 @ 10:10 by Crissy Wills MD) Stage 4 chronic kidney disease ?N18.4 - Chronic kidney disease, stage 4 (severe) (ICD-10) UTI (urinary tract infection) ?N39.0 - Urinary tract infection, site not specified (ICD-10) Acute UTI ?N39.0 - Urinary tract infection, site not specified (ICD-10) H/O malignant neoplasm of female breast ?Z85.3 - Personal history of malignant neoplasm of breast (ICD-10) Aortic stenosis ?I35.0 - Nonrheumatic aortic (valve) stenosis (ICD-10) Arthritis ?M19.90 - Unspecified osteoarthritis, unspecified site (ICD-10) Asthma ?J45.909 - Unspecified asthma, uncomplicated (ICD-10) Encephalitis ?G04.90 - Encephalitis and encephalomyelitis, unspecified (ICD-10) Metastasis to bone ?C79.51 - Secondary malignant neoplasm of bone (ICD-10) Peptic ulcer disease ?K27.9 - Peptic ulcer, site unspecified, unspecified as acute or chronic, without hemorrhage or perforation (ICD-10) TIA (transient ischemic attack) ?G45.9 - Transient cerebral ischemic attack, unspecified (ICD-10) CHELSEA (obstructive sleep apnea) ?G47.33 - Obstructive sleep apnea (adult) (pediatric) (ICD-10) PVD (peripheral vascular disease) ?I73.9 - Peripheral vascular disease, unspecified (ICD-10) Lumbar spondylosis ?M47.816 - Spondylosis without myelopathy or radiculopathy, lumbar region (ICD-10) Incontinence ?R32 - Unspecified urinary incontinence (ICD-10) CKD (chronic kidney disease) stage 3, GFR 30-59 ml/min ?N18.30 - Chronic kidney disease, stage 3 unspecified (ICD-10) Breast CA ?C50.919 - Malignant neoplasm of unspecified site of unspecified female breast (ICD-10) CAD (coronary artery disease) ?I25.10 - Atherosclerotic heart disease of [place] coronary artery without angina pectoris (ICD-10) Depression ?F32.A - Depression, unspecified (ICD-10) GERD (gastroesophageal reflux disease) ?K21.9 - Gastro-esophageal reflux disease without esophagitis (ICD-10) Hypertension ?I10 - Essential (primary) hypertension (ICD-10) Diabetes ?E11.9 - Type 2 diabetes mellitus without complications (ICD-10) Surgical History S/P FLIGHT TEST MECHANIC shunt ?Z98.2 - Presence of cerebrospinal fluid drainage device (ICD-10) H/O heart artery stent ?Z95.5 - Presence of coronary angioplasty implant and graft (ICD-10) History of ventriculoperitoneal shunting ?Z92.89 - Personal history of other medical treatment (ICD-10) History of mastectomy ?Z90.10 - Acquired absence of unspecified breast and nipple (ICD-10) H/O lumpectomy ?Z98.890 - Other specified postprocedural states (ICD-10) S/P balloon mitral valvuloplasty ?Z98.890 - Other specified postprocedural states (ICD-10) S/P mitral valve replacement with bioprosthetic valve ?Z95.3 - Presence of xenogenic heart valve (ICD-10) Family History Other Family history of CHF (congestive heart failure) Family history of diabetes mellitus Family history of myocardial infarction Social History Within the past year, how often did you have a drink containing alcohol: never Score interpretation: A score less than 3 is consistent with normal alcohol consumption. 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 Known occupational exposures/hazards: No Highest level of school completed/degree received: high school graduate Do you want help with school or training: No Are you now , , , , never or living with a partner: never In a typical week, how many times do you talk on the telephone with family, friends, or neighbors: 3 or more times per week How often do you get together with friends or relatives: never How often do you attend lutheran or methodist services: 4 or more times per year Do you belong to any clubs or organizations such as lutheran groups unions, [employer] or athletic groups, or school groups: no Total score: 2 Score interpretation: A score of greater than or equal to 2 indicates the lowest level of social isolation. Little interest or pleasure in doing things: not at all Feeling down, depressed, or hopeless: not at all Feel stressed/tense/nervous/anxious/difficulty sleeping: not at all Due to disability, difficulty making decisions: No Do you think of yourself as: straight/heterosexual Gender Identity: female Meds Home Medications and Allergies Home Medications ?Medication ?Instructions ?Recorded ?Confirmed ?Type clopidogrel 75 mg tablet 75 mg PO QDAY 09/30/23 06/25/25 History gabapentin 300 mg capsule 300 mg PO Q12H 09/30/23 06/25/25 History Held on 06/25/25. Instructions: Doctor's Order letrozole 2.5 mg tablet 2.5 mg PO Q24H 09/30/23 06/25/25 History pantoprazole 40 mg tablet,delayed 40 mg PO QDAY 09/30/23 06/25/25 History release sertraline 100 mg tablet 100 mg PO QAM 09/30/23 06/25/25 History metoprolol succinate 25 mg 25 mg PO DAILY 02/27/24 06/25/25 History tablet,extended release 24 hr aspirin 81 mg capsule 81 mg PO DAILY #30 caps 02/28/24 06/25/25 Rx atorvastatin 20 mg tablet 20 mg PO QPM #30 tabs 02/28/24 06/25/25 Rx insulin lispro 100 unit/mL 12 unit subcut TIDWM 04/06/24 06/25/25 History subcutaneous pen insulin detemir U-100 100 unit/mL 20 unit (0.2 mL) subcut QPM #15 mL 04/11/24 06/25/25 Rx (3 mL) subcutaneous pen (Levemir FlexPen) blood-glucose sensor (Dexcom G7 06/25/25 06/25/25 History Sensor device) furosemide 20 mg tablet 20 mg PO .QD 06/25/25 06/25/25 History gabapentin 600 mg tablet 600 mg PO Q12H 06/25/25 06/25/25 History Held on 06/25/25. Instructions: HOLD FOR NOW mirtazapine 7.5 mg tablet 7.5 mg PO DAILY 06/25/25 06/25/25 History trazodone 100 mg tablet 100 mg PO .QHS 06/25/25 06/25/25 History Allergies Allergy/AdvReac Type Severity Reaction Status Date / Time No Known Drug Allergies Allergy Verified 06/25/25 12:51 Exam Narrative Exam Narrative: Patient is awake. She is oriented to place and person but not to the exact date and location. He wants to go home. No apparent distress. She has mild cough. Cachectic and frail. Neck is very supple. No JVD or carotid bruit. Chest exam reveals fine crackles. Heart is regular. Abdomen soft, nontender. Lower extremities no edema. Patient is able to answer questions and follow command. She is requesting to be discharged home. Mild cognitive loss. Unable to provide details. Mild to moderate functional loss. Please refer to physical Occupational Therapy team note for details on her functional status and treatment plan. Constitutional Vital Signs, click to edit/add: Last Vital Signs Temp 97.6 F 06/26/25 07:39 Pulse 76 06/26/25 07:39 Resp 16 06/26/25 07:39 BP 112/67 06/26/25 07:39 Pulse Ox 94 L 06/26/25 07:39 O2 Del Method Room Air 06/26/25 07:39 O2 Flow Rate 3 06/25/25 14:00 Results Labs Labs: Short CBC 06/25/25 06/26/25 Range/Units 13:05 05:28 WBC 8.8 8.3 (4.0-11.0) 10^3/uL Hgb 10.8 L 11.1 L (12.0-16.0) g/dL Hct 33.6 L 34.8 L (36.0-48.0) % Plt Count 412 397 (150-450) 10^3/uL BMP 06/25/25 06/26/25 13:20 05:28 Sodium 132 L 138 Potassium 4.4 4.0 Chloride 96 L 98 Carbon Dioxide 29.2 29.8 BUN 21.0 H 22.0 H Creatinine 1.44 H 1.29 H Glucose 202 H 124 H Calcium 10.3 H 10.4 H Liver Function 06/26/25 Range/Units 05:28 Total Bilirubin 0.5 (0.2-1.0) mg/dL AST 31 (15-37) U/L ALT 27 (14-59) U/L Alkaline Phosphatase 175 H (46-116) U/L Albumin 3.3 L (3.4-5.0) g/dL Urine 06/25/25 Range/Units 13:36 Urine Color Lt. yellow (YELLOW) Urine Clarity Clear (CLEAR) Urine pH 7.5 (5.0-9.0) Ur Specific Archer 1.020 (1.005-1.025) Urine Protein 100 A (NEG/TRACE) mg/dL Urine Glucose (UA) Negative (NEGATIVE) mg/dL Assessment and Plan Assessment and Plan (1) Encephalopathy: (2) Urinary tract infection: (3) Hypercalcemia: (4) CKD (chronic kidney disease): Plan Encephalopathy. Baseline cognitive and functional impairment. No fever or chills. No nuchal rigidity to suggest meningitis or encephalitis Patient does have UTI which may be contributing or causing her encephalopathy. Patient also has mild hypercalcemia. Not significantly elevated to cause encephalopathy Mild dehydration, RAIN and volume loss. Responded to IV fluid infusion No other significant metabolic derangement. Patient was also on Neurontin, trazodone and mirtazapine that could potentially cause FLORIST side effect and encephalopathy. Try to minimize her polypharmacy. CAT scan of the head does not show any acute intracranial process. I could not exclude other possible etiologies. Patient may need to have additional testing and imaging. May need to have MRI of the brain Continue gentle hydration Monitor calcium level. PT OT eval and treatment. Hypercalcemia with an elevated alk phos. Patient has history of breast cancer. 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 Patient is on hormonal treatment. This could be caused by bony metastasis. In addition patient has CKD and anemia. Could not exclude the possibility of multiple myeloma. Continue gentle hydration. Check ionized calcium Check PTH rule out primary hyperparathyroidism. Check parathyroid hormone related peptide. Requested serum electrophoresis, kappa and lambda chain. These test may not be back before discharge. PCP might need to follow-up on it. CKD stage III. Probable mild acute component responded to IV fluid infusion. Requested serum electrophoresis, light chain measurement rule out multiple myeloma. Cognitive and functional impairment. Anemia, no evidence of acute blood loss. Could be related to her metastatic breast cancer Could be related to iron, B12 and folate deficiency. Could be related to her multiple myeloma. Workup in progress. Patient will likely require to have anemia workup to be done in the outpatient setting to be handled by PCP in collaboration with other needed outpatient providers. This may include but not limited to EGD, colonoscopy, referral to see hematology and other needed age-appropriate cancer screening. Chronic medical conditions not listed above, incidental findings seen on labs and imaging. These would need to be addressed. Could be addressed when time and condition are appropriate. Could be addressed in the outpatient setting by PCP collaboration with other needed outpatient providers.
[2025-06-26] MEDS: SODIUM CHLORIDE 0.45 % 1,000 ML 70 ML IV (10:55)
--- NOTE | 2025-06-26 11:23 | P.EN_ITS ---
Event Note Event Note: Advance care planning and goals of care discussion. I called her daughter Ileana to discuss this. Conversation lasted about 25 minutes on the phone. She will give me permission to proceed with conversation. I gave her update on her condition, status and treatment plan. I informed her that her calcium and alkaline phosphatase are elevated suggestive of bone metastasis. Patient stated that her mom breast cancer is in remission. She saw her oncologist in [place] a few months ago and was told that her cancer is in remission. She has a follow-up appointment in 6 months. We discussed her CODE STATUS. I explained in simple terms of the difference between full code, CCA and CC. I explained in layman's terms the difference between aggressive versus comfort care approach. Patient is leaning more towards comfort care approach however she wants to discuss this further with her son and the relative before she makes a decision. I answered all of her questions related to that.
[2025-06-26 11:27] LABS: Iron 47.0 ug/dL (50.0-170.0); Percent Iron Saturation 19.0 %; Total Iron Binding Capacity 247.0 ug/dL (250.0-450.0)
--- NOTE | 2025-06-26 12:11 | SWNOTE1 ---
SW stopped in room, pt's daughter in room, they were talking very loudly in room and daughter and patient seemed to be getting upset. SW sat down to speak with them. Daughter has been voicing to pt that pt can not return home as she is confused and not feeling well. Pt has expressed she is not going anywhere and she is going home. Conversation went on for a bit and both patient and daughter were getting very upset. Daughter eventually walked out. Within the conversation daughter stated she has wheelchair, hospital bed, walker, and bedside commode. Daughter voiced she has HH, just one visit left, and then was going to transition to outpt. Daughter did not state what HH company. Daughter also voiced that pt was at [facility] within the last 2 months and was cut from insurance. Daughter would like her to return to get stronger. SW attempted to speak with pt after daughter left and develop rapport with patient. Pt has requested SW leave her alone at this time and does not want to speak with anyone. Pt did know she was at a hospital and eventually stated the [facility]. It is documented in chart that pt does have some confusion. At this time SW will reach out to [facility] to see if they have beds. SW to attempt to speak with pt later today. If pt goes to [facility] she will be a precert.
[2025-06-26] MEDS: INSULIN ASPART 300 UNIT/3 ML PEN SUBQ ×2 (12:14→21:05)
--- NOTE | 2025-06-26 13:06 | SWNOTE1 ---
SW heard back from [facility] and they do not have any open beds. SW to let daughter know.
--- NOTE | 2025-06-26 13:16 | SWNOTE1 ---
HUBERT called daughter, Ileana, and let her know [facility] does not have any openings at this time. SW also let daughter know that it is possible when patient is ready for discharge that she will be alert and oriented and refuse to go to SNF. Daughter voiced understanding and stated she has been caring for her mother at home for several years. SW did ask daughter if she would like SW to look at any other facilities. Daughter stated no, not at this time and we will see what physician says tomorrow. HUBERT explained to daughter that pt is a precert to go skilled. Daughter again stated no to looking in to other facilities. HUBERT did ask what home health company was coming in? She stated they are not anymore. She stated it was [facility] coming in. At this time daughter does not want to move forward with HUBERT sending any referrals to anyone. SW to follow as needed.
--- NOTE | 2025-06-26 13:52 | SWNOTE1 ---
Important Message from Medicare reviewed and discussed with patient's daughter, Ileana. She verbalized understanding and SW signed the form to confirm it was reviewed. Original placed in pt's room and copy placed in patient?s chart.
[2025-06-26 15:19] LABS: Ferritin 541.0 ng/mL (8.0-252.0); Folate 23.30 ng/mL (8.60-58.90)
--- NOTE | 2025-06-26 17:59 | DIETREC ---
Recommend 237 mL Ensure Original BID d/t poor PO meal intakes.
[2025-06-26] MEDS: ENOXAPARIN SODIUM 30 MG/0.3 ML SYRINGE SUBQ (18:28)
[2025-06-26] MEDS: CEFUROXIME AXETIL 250 MG TABLET PO (21:04)
[2025-06-26] MEDS: ATORVASTATIN CALCIUM 20 MG TABLET PO (21:05)
[2025-06-26] MEDS: TRAZODONE HCL 50 MG TABLET 25 MG PO (21:05)
[2025-06-26] MEDS: INSULIN GLARGINE 300 UNIT/3 ML INSULN.PEN 20 UNIT SQ (21:05)
--- NOTE | 2025-06-26 21:14 | PC.NURSE ---
nurse put new name band on patient earlier in shift to left arm. Nurse aide into do accu check, Patient does not have name band on. Name band found on floor next to bed. New name band placed on patient's left leg at this time.
[2025-06-27] VITALS: BP 111/67; PULSE 74; TEMP 36.4; O2SAT 90
[2025-06-27 03:05] VITALS: BP 134/63; PULSE 69; TEMP 36.8; O2SAT 90
[2025-06-27 05:53] LABS: Anion Gap 12.5; Blood Urea Nitrogen 25.0 mg/dL (7.0-18.0); Calcium 9.8 mg/dL (8.5-10.1); Carbon Dioxide 30.3 mmol/L (21.0-32.0); Chloride 98 mmol/L (98-107); Estimated GFR (African America 42 (>=60 mL/min/1.73m^2); Estimated GFR (Non-African Ame 35 (>=60 mL/min/1.73m^2); Glucose 111 mg/dL (74-106); Potassium 3.8 mmol/L (3.5-5.1); Sodium 137 mmol/L (136-145)
[2025-06-27] MEDS: PANTOPRAZOLE SODIUM 40 MG TABLET.DR PO (06:03)
[2025-06-27 07:14] VITALS: BP 134/84; PULSE 73; TEMP 36.6; O2SAT 95
[2025-06-27 08:09] LABS: Vitamin B12 925 pg/mL (232-1245)
[2025-06-27] MEDS: CLOPIDOGREL BISULFATE 75 MG TABLET PO (08:11)
[2025-06-27] MEDS: ASPIRIN 81 MG TAB.CHEW PO (08:11)
[2025-06-27] MEDS: CEFUROXIME AXETIL 250 MG TABLET PO (08:11)
[2025-06-27] MEDS: METOPROLOL SUCCINATE 25 MG TAB.ER.24H PO (08:12)
[2025-06-27] MEDS: SERTRALINE HCL 100 MG TABLET PO (08:12)
--- NOTE | 2025-06-27 08:37 | SWNOTE1 ---
SW stopped in to see pt to discuss dc planning. Pt was sitting up in the chair, dressed and ready to go. Pt voiced she was being discharged today. Pt's daughter was in room as well. Pt and daughter did not voiced any complaints or concerns about discharge today. Daughter now voiced pt does have [facility] HH and has one visit left. HUBERT to resume [facility] home health services. HUBERT faxed face sheet, ED note, H&P, physician notes, and PT/OT notes to [facility]. HUBERT to send dc orders to [facility] once completed.
--- NOTE | 2025-06-27 08:46 | PT.DAILY ---
Physical Therapy Daily Note PT Daily Note/Assess Start: 06/27/25 08:35 Freq: Status: Active Protocol: Document 06/27/25 08:00 ANDREA (Rec: 06/27/25 08:45 ANDREA [id number]) Physical Therapy Daily Note/Assessment Time In/Time Out Time In 08:03 Time Out 08:28 Subjective Subjective Patient states. Get me dressed I am going home. Daughter is present in room. Patient does agree to PT. Therapeutic Activity Time Therapeutic Activity 25 Minutes (minutes) Therapeutic Activity 2 Units Therapeutic Activity Treatment Bed Mobility Ability Moderate Assist Chair Transfer Moderate Assist Ability Therapeutic Activity Supine to sit mod assist. Sit to stand from EOB a Comments lowest point, unable to do with max assist. Able to raise bed 2-3 inches then mod assist to complete transfer at RW. Patient able to take 5 steps from bed to chair with walker CGA to min assist required for safety. Sit to stand from bedside recliner 3x with min to mod assist. Static standing during dressing activities with B UE at walker and CGA from therapist. Total Physical Therapy Time Total Therapy 25 Minutes Total Physical 2 Therapy Units Summary Daily Note Summary Patient does demonstrate improvements in bed mobility and transfers today but still requires min to moderate assistance for safety. Patient would benefit from skilled rehab to improve strength and ability with sit to stand transfers and safety with pivot transfers. Patient is in room with alarm placed, call light in reach, student nursing and daughter present. All needs met.
--- NOTE | 2025-06-27 08:54 | CM.NOTE ---
Reviewed with Dr. Wills. Potential discharge today.
--- NOTE | 2025-06-27 09:08 | P.DS_ITS ---
DS: Providers Provider Date of admission: 06/25/25 16:06 Primary care physician: PAM STINSON Consults: 06/25/25 17:25 Occupational Therapy Eval and Treat Routine Reason for consultation: Weakness Has provider been notified: No Physical Therapy Eval and Treat Routine Reason for consultation: Weakness 06/26/25 09:59 Occupational Therapy Eval and Treat Routine Reason for consultation: Weakness Physical Therapy Eval and Treat Routine Reason for consultation: Weakness DS: Diagnosis Discharge Diagnosis (1) Encephalopathy: (2) Urinary tract infection: (3) Hypercalcemia: (4) CKD (chronic kidney disease): DS: Summary Hospital Course Hospital Course: Mrs. Dee is a 80-year-old female who was brought to the emergency room by her daughter stating that her mom is confused and disoriented. Patient was found to have the following Encephalopathy. Baseline cognitive and functional impairment. No fever or chills. No nuchal rigidity to suggest meningitis or encephalitis Patient does have UTI which may be contributing or causing her encephalopathy. Urine culture is pending. Previous urine culture grew Enterococcus. Patient will be discharged home on Augmentin. Patient also has mild hypercalcemia. Not significantly elevated to cause encephalopathy. Hypercalcemia could be related to dehydration and volume loss. Corrected with IV fluid infusion Mild dehydration, RAIN and volume loss. Responded to IV fluid infusion No other significant metabolic derangement. 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 Try to minimize her polypharmacy. Patient was on Neurontin 900 mg twice a day. I reduced it down to 300 mg twice a day. CAT scan of the head does not show any acute intracranial process. I could not exclude other possible etiologies. Patient may need to have additional testing and imaging. May need to have MRI of the brain Continue gentle hydration Monitor calcium level. Patient is requesting to be discharged home today. Patient is not willing to stay any longer for additional monitoring, testing, investigation. PT OT eval and treatment. Patient was seen by PT OT and recommended skilled care. Patient does not want to go anywhere else but home understanding potential risk of falls, body injury. Her family supported her decision. Family stated that the patient has only disability care at home including a walker and a wheelchair. Home health care will be arranged for patient. Hypercalcemia with an elevated alk phos. Patient has history of breast cancer. 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 Patient is on hormonal treatment. This could be caused by bony metastasis. In addition patient has CKD and anemia. Could not exclude the possibility of multiple myeloma. Continue gentle hydration. Check ionized calcium. Pending Check PTH rule out primary hyperparathyroidism. Pending Check parathyroid hormone related peptide. Pending Requested serum electrophoresis, kappa and lambda chain. Pending These test may not be back before discharge. PCP might need to follow-up on it. CKD stage III. Probable mild acute component responded to IV fluid infusion. Requested serum electrophoresis, light chain measurement rule out multiple myeloma. Pending Cognitive and functional impairment. Anemia, no evidence of acute blood loss. Could be related to her metastatic breast cancer Could be related to iron, B12 and folate deficiency. Could be related to her multiple myeloma. Workup in progress. Iron study came back consistent with anemia of chronic disease. Could be related to CKD. Could be related to underlying malignancy. Patient will likely require to have anemia workup to be done in the outpatient setting to be handled by PCP in collaboration with other needed outpatient providers. This may include but not limited to EGD, colonoscopy, referral to see hematology and other needed age-appropriate cancer screening. Chronic medical conditions not listed above, incidental findings seen on labs and imaging. These would need to be addressed. Could be addressed when time and condition are appropriate. Could be addressed in the outpatient setting by PCP collaboration with other needed outpatient providers. Patient has multiple complex medical issues as listed above and others that are not listed. All appear to be stable. Patient is feeling great and requesting to be discharged home today. Patient does not want to stay any longer for any additional testing, investigation or treatment. Patient refused to allow for additional IV antibiotic or IV fluid infusion. Patient ripped out IV site 3 times yesterday and the nurse had to put it back in 3 times. At this time, I do not have legal justification nor I have any clear or strong clinical justification to extend inpatient hospitalization against her will and desire to be discharged home. Patient however will require close and frequent monitoring as well as additional work-up, investigation and therapeutic intervention that could take place from this point on post discharge. That is to prevent relapse, decompensation, rehospitalization and other medical implications. I instructed patient to ask her primary care doctor to obtain [facility] record entirely to address abnormalities seen on labs and imaging that I have and have not addressed during this hospitalization, follow-up on pending blood work, imaging and pathology is if available and to follow-up on needed medical care in the outpatient setting. Time Spent with Patient Time attestation: Total time spent providing and/or coordinating discharge services: Exam Constitutional Vital Signs, click to edit/add: Last Vital Signs Temp 98 F 06/27/25 07:14 Pulse 73 06/27/25 07:14 Resp 17 06/27/25 08:24 BP 134/84 06/27/25 07:14 Pulse Ox 95 06/27/25 07:14 O2 Del Method Room Air 06/27/25 07:14 O2 Flow Rate 3 06/25/25 14:00 DS: Data Data Completed and Pending Labs on day of discharge: Labs from last 24 hours 06/27/25 06/26/25 06/26/25 05:25 20:54 16:26 Sodium 137 Potassium 3.8 Chloride 98 Carbon Dioxide 30.3 Anion Gap 12.5 BUN 25.0 H Creatinine 1.45 H Est GFR ( Amer) 42 L Est GFR (Non-Af Amer) 35 L BUN/Creatinine Ratio 17.2 Glucose 111 H Calcium 9.8 Iron TIBC % Saturation Ferritin Vitamin B12 Folate POC Glucose 241 H 148 H 06/26/25 06/26/25 11:37 10:39 Sodium Potassium Chloride Carbon Dioxide Anion Gap BUN Creatinine Est GFR ( Amer) Est GFR (Non-Af Amer) BUN/Creatinine Ratio Glucose Calcium Iron 47.0 L TIBC 247.0 L % Saturation 19.0 Ferritin 541.0 H Vitamin B12 925 Folate 23.30 POC Glucose 203 H Preliminary micro results at discharge 06/25/25 13:36 Urine Culture - Preliminary Urine,Clean Catch Pending - Specimen sent to [facility] Discharge Plan Discharge Disposition: Home Health Service Condition: Fair Discharge Medications: New amoxicillin-pot clavulanate [Augmentin] 500-125 mg tablet 1 tab PO BID Qty: 14 0RF Continued sertraline 100 mg tablet 100 mg PO QAM clopidogrel 75 mg tablet 75 mg PO QDAY pantoprazole 40 mg tablet,delayed release (DR/EC) 40 mg PO QDAY gabapentin 300 mg capsule 300 mg PO Q12H letrozole 2.5 mg tablet 2.5 mg PO Q24H metoprolol succinate 25 mg tablet extended release 24 hr 25 mg PO DAILY aspirin 81 mg capsule 81 mg PO DAILY Qty: 30 0RF atorvastatin 20 mg tablet 20 mg PO QPM Qty: 30 0RF insulin lispro 100 unit/mL insulin pen 12 unit SUBCUT TIDWM Levemir FlexPen 100 unit/mL (3 mL) Insulin Pen 20 unit subcut QPM Qty: 15 0RF furosemide 20 mg tablet 20 mg PO .QD mirtazapine 7.5 mg tablet 7.5 mg PO DAILY (DME) Dexcom G7 Sensor Device MISCELLANEOUS trazodone 100 mg tablet 100 mg PO .QHS Discontinued gabapentin 600 mg tablet 600 mg PO Q12H Activity: increase activity as tolerated Diet: advance to your usual diet Print Language: Belarusian Patient Instructions: Altered Mental Status (ED), Urinary Tract Infection in Older Adults (DC) Activity Restrictions/Additional Instructions: I may not have addressed or treated all of your medical illnesses or the abnormal blood work or imaging studies during this hospitalization. Please ask your primary care provider to obtain [facility] records entirely to follow up on all of the abnormal physical, laboratory, and imaging findings that I have not addressed. Please return back to the emergency room or seek medical attention if your symptoms worsen or return. Please follow-up with your cancer doctor within the next few weeks regarding elevated calcium level suspecting cancer spread to the bone I requested a few blood tests to figure out the cause of high calcium. These test are not back yet. Please ask your primary care doctor to review all pending tests Discharging you from [facility] does not mean that your medical care ends here and now. You may still need additional monitoring, work up, investigation, and treatment plan to be handled from this point on by out patient providers including your primary care provider and specialists. For any medication question, please contact your retail pharmacist or your primary care provider. Thank you. Forms: Portal Instructions Follow Up Appointments: . 07/05 n@ 2pm with [facility] [address] [phone]
--- NOTE | 2025-06-27 09:18 | SWNOTE1 ---
HUBERT faxed dc med rec, CRF, and dc summary to [facility].
--- NOTE | 2025-06-27 09:21 | PC.NURSE ---
Script was sent to [facility] pharmacy. Taping Supervisor called [facility] (where daughter preferred medication to be filled) and they will call [facility] to have script transferred to them.
[2025-06-27 09:51] VITALS: BMI 29.1
--- NOTE | 2025-06-27 11:05 | SWNOTE1 ---
SW called daughter, Ileana, and asked if pt already had a follow up scheduled with pt's Oncologist. She voiced she is going to take pt to get a second opinion and she will take care of setting it up.
[2025-06-27 16:09] LABS: Albumin 3.1 g/dL (2.9-4.4); Alpha-1-Globulin 0.4 g/dL (0.0-0.4); Alpha-2-Globulin 1.0 g/dL (0.4-1.0); Free Kappa Lt Chains,S 67.3 mg/L (3.3-19.4); Free Lambda Lt Chains,S 43.8 mg/L (5.7-26.3); Gamma Globulin 1.8 g/dL (0.4-1.8); Kappa/Lambda Ratio,S 1.54 (0.26-1.65)
--- NOTE | 2025-06-28 09:19 | CM.NOTE ---
Called Dr. Rosales's office (Dr. Ley no longer with [facility] and appointment made for Dr. Rosales) and spoke to Paramjit. Serum electrophoresis and Lucille/Mathur lt chain results faxed to office ([phone]). Paramjit will inform the physician and make sure they are in her chart to review at appointment.
--- NOTE | 2025-06-28 14:43 | CM.DCFOLLOWU ---
06/28- 1st attempt. No answer
--- NOTE | 2025-06-29 08:47 | P.EN_ITS ---
Event Note Event Note: Patient was discharged on Augmentin targeting Enterococcus. Final urine culture came back positive for 50,000 colonies of Enterococcus and 100,000 colonies of Citrobacter. Additional prescription for Levaquin was sent to [facility] in [place]. Her daughter will be notified to pick it up.
--- NOTE | 2025-06-29 09:39 | CM.NOTE ---
Dr. Wills given final urine culture result, called in to [facility] Lev[facility]. Called daughter to notify of new prescription and pt will take in conjunction with the other antibiotic provided at discharge.
--- NOTE | 2025-06-29 13:33 | CM.DCFOLLOWU ---
Person spoke with: Daughter How are you feeling? Patient is better How is your pain? No pain Did you understand your discharge instructions? Yes Do you have any questions about your discharge instructions? No Were you given any prescriptions at discharge? Yes Were you able to get your prescriptions filled? Yes Do you understand how to take your medications as ordered? Yes Do you have any questions about your follow up appointment and do you plan to keep your follow up appointment? No f/u is scheduled Is there anything else that you would like to discuss? No Questions/Comments/Concerns/Other:
--- OUTSIDE RECORDS SUMMARY | 2025-07-30 04:53 | XMS_ITS | CCD ---
Author Organization [facility] CliniSyia Care Team Providers Care Bounty Hunter Name Role Phone Michael Duarte Primary Care Provider UnavailLAKESHIA Kramer Referring Unavailable MICHAEL DUARTE Primary Care Unavailable ELIZABETH TOMLINSON Referring Unavailable MICHAEL DUARTE Primary Care Unavailable PAM STINSON Primary Care Unavailable ASHLEE, DR PADILLA Attending Unavailable ASHLEE, DR PADILLA Consulting Unavailable ASHLEE, DR PADILLA Admitting Unavailable COREY, DR GIOVANNY Tuttle Consulting Unavailable Hortenciaitt, Vale Admitting Unavailable Vale Contreras Attending Unavailable GIOVANNY LGOAN Referring Unavailable GIOVANNY LOGAN Primary Care Unavailable Michael Duarte Primary Care Provider Unavaildeshawn Stinson LOCK AND DAM EQUIPMENT REPAIRER - CORPORATE STRATEGIST, Pam De La Rosa Primary Care [facility] ider JEREMIAH, AMEER Referring Unavailable MICHAEL DUARTE Primary Care Unavailable JEREMIAH, AMEER Admitting Unavailable JEREMIAH, AMEER Attending Unavailable PHUONG BLAIR Referring Unavailable PAM STINSON Primary Care Unavailable PHUONG BLAIR Referring Unavailable PAM STINSON Primary Care Unavailable JEREMIAH, AMEER Attending Unavailable JEREMIAH, AMEER Referring Unavailable MICHAEL DUARTE Primary Care Unavailable JEREMIAH, AMEER Attending Unavailable JEREMIAH AMEER Referring Unavailable MICHAEL DUARTE Primary Care Unavailable NOLAN JHA Referring Unavailable MICHAEL DUARTE Primary Care Unavailable JEREMIAH, AMEER Referring Unavailable MICHAEL DUARTE Primary Care Unavailable JEREMIAH, AMEER Admitting Unavailable JEREMIAH, AMEER Attending Unavailable NING CALDERA Consulting Unavailable MICHAEL DUARTE Primary Care Unavailable CHARMAINE BLAND Consulting Unavailable MARITZA MIDDLETON Attending Unavailable MARITZA MIDDLETON Admitting Unavailable Av LOCK AND DAM EQUIPMENT REPAIRER-CORPORATE STRATEGIST, Pam De La Rosa Primary Care [facility] er Stinson LOCK AND DAM EQUIPMENT REPAIRER-CORPORATE STRATEGIST, Pam J Primary Care Provid er Stinson LOCK AND DAM EQUIPMENT REPAIRER-CORPORATE STRATEGIST, Pam J Primary Care Provid er Bhavik La MD, Kendall Unavailable Unavailabl Sarai Whaley Attending Unavailable Al Shdeondre, Kendall Attending Unavailable Al Bessie, Kendall Referring Unavailable Al Shdeondre, Kendall Attending Unavailable Stinson LOCK AND DAM EQUIPMENT REPAIRER-CORPORATE STRATEGIST, Pam J Primary Care Provid er Bhavik La MD, Kendall Unavailable Unavailabl e Stinson LOCK AND DAM EQUIPMENT REPAIRER-CORPORATE STRATEGIST, Pam J Primary Care Provid er Stinson LOCK AND DAM EQUIPMENT REPAIRER-CORPORATE STRATEGIST, Pam J Primary Care Provid er Krotinder LOCK AND DAM EQUIPMENT REPAIRER-CORPORATE STRATEGIST, Vj Cohen Primary Care Provider Unallocated MD, Noms Provider Primary Care Provi michele DEJA STINSONERIE J Attending Unavailable STINSON, PAM J Referring Unavailable STINSON, PAM J Primary Care Unavailable STINSON, PAM J Attending Unavailable STINSON, PAM J Referring Unavailable STINSON, PAM J Primary Care Unavailable STINSON, PAM J Attending Unavailable STINSON, PAM J Referring Unavailable STINSON, PAM J Primary Care Unavailable STINSON, PAM J Attending Unavailable STINSON, PAM J Referring Unavailable STINSON, PAM J Primary Care Unavailable STINSON, PAM J Attending Unavailable STINSON, PAM J Referring Unavailable STINSON, PAM J Primary Care Unavailable VJ GRAY Attending Unavailable MICHAEL JOINER Referring Unavailable VJ GRAY Primary Care Unavailable Ra Maravilla DO Attending Provider Ra Maravilla Attending Unavailable Ra Maravilla Admitting Unavailable FELIX HALLMAN Referring Unavailable VJ GRAY Primary Care Unavailable LEXX, RUQIYYA Reji Attending Unavailable HALLMAN, RUQIYYA T Admitting Unavailable OVITT, VALE Referring Unavailable OVITT, VALE Referring Unavailable OVITT, VALE Referring Unavailable OVITT, VALE Attending Unavailable CLIFF VIVAR Attending Unavailable MELY LARIOS Attending Unavailable STINSON, PAM J Primary Care Unavailable RODRIGUEZ, CHRISTINE U Admitting Unavailable STINSON, PAM J Primary Care Unavailable GIOVANNY PENNY Attending Unavailable THANIA MARTINEZ Admitting Unavailable MARC RIVERO Referring Unavailable STINSON, PAM J Primary Care Unavailable STINSON, PAM J Primary Care Unavailable SUKHJINDER WILDE Attending Unavailable STINSON, PAM J Primary Care Unavailable VERONA PORRAS Attending Unavailable STINSON, PAM J Primary Care Unavailable BEN THIBODEAUX Attending Unavailable RODRIGUEZ, CHRISTINE U Admitting Unavailable BENEDICTO MCDOWELL Consulting Unavailable JOSÉ MIGUEL BARON Consulting Unavailable STINSON, PAM J Primary Care Unavailable VENU DOWNS Attending Unavailable VENU DOWNS Admitting Unavailable STINSON, PAM J Primary Care Unavailable SARAI CASAS Attending Unavailab le STINSONDEJAPAM J Primary Care Unavailable MARRY DOE Attending Unavailable RADHA MORAN Attending Unavailable STINSON, PAM J Referring Unavailable STINSON, PAM J Primary Care Unavailable MEHNAZ MAJANO Referring Unavailable STINSON, PAM J Primary Care Unavailable STINSON, PAM J Primary Care Unavailable SASHA SPICER Attending Unavailable NING SEVERINO Attending Unavailable STINSON, PAM J Primary Care Unavailable STINSON, PAM J Primary Care Unavailable MELY LARIOS Attending Unavailable LIGIBEL, SEMBRIA L Referring Unavailable STINSON, PAM J Primary Care Unavailable CASIMIRO MUÑOZ Attending Unavailable STINSON, PAM J Referring Unavailable STINSON, PAM J Primary Care Unavailable LIGIBEL, SEMBRIA L Referring Unavailable STINSON, PAM J Primary Care Unavailable LIGIBEL, SEMBRIA L Referring Unavailable STINSON, PAM J Primary Care Unavailable STINSON, PAM J Primary Care Unavailable RODRIGUEZ, CHRISTINE U Admitting Unavailable RODRIGUEZ, CHRISTINE U Attending Unavailable CARDIOLOGY, [facility] Consulting Unavailable STINSON, PAM J Referring Unavailable STINSON, PAM J Primary Care Unavailable STINSON, PAM J Referring Unavailable STINSON, PAM J Primary Care Unavailable STINSON, PAM J Primary Care Unavailable RODRIGUEZ, CHRISTINE U Admitting Unavailable LESLI, MUHAMID M Attending Unavailable SASHA SPICER Attending Unavailable SASHA SPICER Referring Unavailable STINSON, PAM J Primary Care Unavailable STINSON, PAM J Referring Unavailable STINSON, PAM J Primary Care Unavailable STINSON, PAM J Referring Unavailable STINSON, PAM J Primary Care Unavailable STINSON, PAM J Referring Unavailable STINSON, PAM J Primary Care Unavailable STINSON, PAM J Primary Care Unavailable MADISON HOLDER Attending Unavailable STINSON, PAM J Referring Unavailable STINSON, PAM J Primary Care Unavailable STINSON, PAM J Referring Unavailable STINSON, PAM J Primary Care Unavailable STINSON, PAM J Referring Unavailable STINSON, PAM J Primary Care Unavailable STINSON, PAM J Referring Unavailable STINSON, PAM J Primary Care Unavailable STINSON, PAM J Referring Unavailable STINSON, PAM J Primary Care Unavailable NING HASSAN Attending Unavailable MICHAEL JOINER Primary Care Unavailable MICHAEL JOINER Primary Care Unavailable BEN THIBODEAUX Attending Unavailable MICHAEL JOINER Primary Care Unavailable KENNETH PRYOR Attending Unavailable MICHAEL JOINER Primary Care Unavailable ANA TIDWELL Attending Unavailable MICHAEL JOINER Primary Care Unavailable THANIA MARTINEZ Admitting Unavailable FELIX HALLMAN Attending Unavailable HANNAH CHRIS JR Consulting Unavaildeshawn e MICHAEL JOINER Primary Care Unavailable GIOVANNY PENNY Attending Unavailable VJ GRAY Primary Care Unavailable SASHA SPICER Attending Unavailable VJ GRAY Primary Care Unavailable RADHA PRYOR Attending Unavailable VJ GRAY Primary Care Unavailable LESLI, MUHAMID M Admitting Unavailable LESLI, CECILIOHAMID M Attending Unavailable VJ GRAY Primary Care Unavailable BEN THIBODEAUX Attending Unavailable VJ GRAY Primary Care Unavailable RANDY ORNELAS Consulting Unavailable LESLI, MUHAMID M Admitting Unavailable LESLI, MUHAMID M Attending Unavailable JOIE ECHAVARRIA Attending Unavailable JOIE ECHAVARRIA Referring Unavailable JOIE ECHAVARRIA Attending Unavailable JOIE ECHAVARRIA Referring Unavailable MARYCARMEN AZAR Admitting Unavailab NAYANA Aragon Referring Unavailable PAM STINSON Primary Care Unavailable [facility] Consulting Unavailable MARIA GUADALUPE CAGLE Attending Unavailable CHRISTA HENRY Consulting Unavailable DELGADO LEAHY Consulting Unavailable CARDIOLOGY, [facility] Consulting Unavailable CHRISTINE RODRIGUEZ Referring Unavailable STINSONPAM NAM Primary Care Unavailable NING HASSAN Referring Unavailable YUHAS, MICHAEL L Primary Care Unavailable YUHAS, MICHAEL L Referring Unavailable YUHAS, MICHAEL L Primary Care Unavailable KENNETH PRYOR Referring Unavailable YUHAS, MICHAEL Carnes Primary Care Unavailable ANA TIDWELL Referring Unavailable YUHAS, MICHAEL Carnes Primary Care Unavailable LEXX JHA Referring Unavailable STINSONBRAYDON NAME J Primary Care Unavailable YUHAS, MICHAEL L Referring Unavailable YUHAS, MICHAEL L Primary Care Unavailable KROTZER, VJ D Referring Unavailable KROTZER, VJ D Primary Care Unavailable THANIA MARTINEZ Admitting Unavailable ILDEFONSO BALLESTEROS Referring Unavailable KROTZER, VJ D Primary Care Unavailable GERARDO MONTEMAYOR Consulting Unavailable MARIA GUADALUPE CAGLE Attending Unavailable CARDIOLOGY, [facility] Consulting Unavailable INÉS MONAHAN Consulting Unavailable DANILO DEL RIO Consulting Unavailable CASIMIRO MUÑOZ Consulting Unavailable KIMMY CALVERT Consulting Unavailable MAUREEN HADLEY Consulting Unavailable BRANDON HERNÁNDEZ Consulting Unavailable KROTZER, VJ D Referring Unavailable KROTZER, VJ D Primary Care Unavailable KROTZER, VJ D Referring Unavailable KROTZER, VJ D Primary Care Unavailable Allergies Allergy Classification Reported Allergen(s) Allergy Type Date of Onset Reaction(s) Facility (1 source) 06506,00 Drug allergy (disorder) 01-23-2020 [facility] Repository Medications Current Medications Medication Drug Class(es) Dates Sig (Normalized) Sig (Original) acetaminophen 500 mg oral tablet (20 sources) Start: 07-18-2025 take 2 tablets by mouth every eight hours acetaminophen (TYLENOL EXTRA STRENGTH) 500 mg tablet Take 2 tablets (1,000 mg total) by mouth every 8 (eight) hours. 07/18/2025 Active Start: 07-02-2025 End: 07-05-2025 take 1 tablet by mouth every four hours as needed for pain and headache Start: 05-13-2025 End: 05-15-2025 take 1 tablet [...] for pain acetaminophen (TYLENOL) 500 mg tablet Take 2 tablets (1,000 mg total) by mouth every 6 (six) hours as needed for pain. Suspended albuterol 0.83 mg/ml inhalation solution (9 sources) beta2-Adrenergic Agonist Start: 2024 take 3 mL by inhalation every six hours as needed for wheezing albuterol (PROVENTIL,VENTOLIN) 2.5 mg /3 mL (0.083 %) nebulizer [...] hyperlipidemia associated with type 2 diabetes mellitus [place] Take 1 tablet (40 mg total) by [...] nephropathy, without long-term current use of insulin [place] Monitor blood sugars four times daily and as needed 1 each 10/11/2020 Active Start: 10-11-2020 blood-glucose meter misc Indications: Controlled type 2 diabetes mellitus with diabetic nephropathy, without long-term current use of insulin [facility] Monitor blood sugars four times daily and as needed 1 each 0 10/11/2020 Active busPIRone hydrochloride 5 mg oral tablet (10 sources) Start: 07-04-2025 End: 07-05-2025 take 1 tablet by mouth three times daily busPIRone (BUSPAR) 5 mg tablet Take 1 tablet (5 mg total) by mouth 3 (three) times a day. 07/05/2025 Active cefuroxime 250 mg oral tablet (8 sources) Cephalosporin Antibacterial take 1 tablet by mouth once daily cefuroxime (Ceftin) 250 MG tablet Take 250 mg by mouth Daily Active cephalexin 500 mg oral capsule (3 sources) Cephalosporin Antibacterial Start: 01-10-2025 End: 01-17-2025 take 1 capsule by mouth three times [...] 20 capsule 0 02/09/2024 02/19/2024 Active cholecalciferol 0.05 mg oral tablet (6 sources) Vitamin D Start: 07-19-2025 take 1 tablet by mouth in the morning cholecalciferol, vitamin D3, 2,000 units tablet Take 1 tablet (2,000 Units total) by mouth in the morning. 07/19/2025 Active ciprofloxacin 500 mg oral tablet (1 source) Quinolone Antimicrobial Start: 11-12-2024 End: 11-19-2024 take 0.5 tablet by mouth in the morning, then take 0.5 tablet by mouth at bedtime ciprofloxacin HCl (CIPRO) 500 mg tablet Take 0.5 tablets (250 mg total) by mouth in the morning and 0.5 tablets (250 mg total) before bedtime. Do all this for 7 days. 7 tablet 11/12/2024 11/19/2024 Active DEXCOM G7 CONTRACT POST OFFICE CLERK misc (13 sources) Start: 07-05-2024 DEXCOM G7 CONTRACT POST OFFICE CLERK misc USE DIRECTED TO CONTINUOUSLY MONITOR BLOOD SUGAR 07/05/2024 Active DEXCOM G7 SENSOR device (20 sources) Start: 03-22-2024 DEXCOM G7 SENSOR device CHANGE SENSOR EVERY 10 DAYS, E11.65 03/22/2024 Active docusate sodium 100 mg oral capsule (4 sources) Start: 07-18-2025 take 1 capsule by mouth in the morning, then take 1 capsule by mouth at bedtime docusate sodium (COLACE) 100 mg capsule Take 1 capsule (100 mg total) by mouth in the morning and 1 capsule (100 mg total) before bedtime. 07/18/2025 Active doxycycline monohydrate 100 mg oral capsule (4 sources) Tetracycline-class Drug Start: 05-15-2025 End: 05-20-2025 take 1 capsule by mouth in the [...] 10 capsule 2024 06/21/2024 Discontinued (Therapy completed) ergocalciferol 1.25 mg oral capsule (4 sources) Provitamin D2 Compound Start: 07-20-2025 take 1 capsule by mouth every week ergocalciferol (DRISDOL) 1,250 mcg (50,000 unit) capsule Take 1 capsule (50,000 Units total) by mouth once a week. 07/20/2025 Active ferrous sulfate 325 mg oral tablet (20 sources) Start: 07-18-2025 take 1 tablet by mouth once daily at breakfast ferrous sulfate 325 (65 FE) MG tablet Take 1 tablet (325 mg total) by mouth daily with breakfast. 07/18/2025 Active Start: 07-03-2025 End: 07-05-2025 take 1 tablet by mouth in the morning, then take 1 tablet by mouth at mealtime ferrous sulfate 325 (65 FE) MG tablet Take 1 tablet (325 mg total) by mouth in the morning and 1 tablet (325 mg total) in the evening. Take with meals. 07/05/2025 Suspended Start: 05-14-2025 End: 07-05-2025 take 325 mg by mouth once daily at breakfast 325 mg, oral, Daily with breakfast, First dose on Wed07/02/25 at 1815, Give ferrous sulfate 2 hours before or 4 hours after antacids. fluconazole 150 mg oral tablet (1 source) [...] take 1 tablet by mouth once daily furosemide (LASIX) 20 mg tablet Take 1 tablet (20 mg total) by mouth daily. 05/16/2025 Active hydroCHLOROthiazide 25 mg oral tablet (20 [...] nephropathy, without long-term current use of insulin [place] INJECT 30 UNITS UNDER THE SKIN NIGHTLY 30 mL 3 08/31/2023 03/02/2024 Discontinued (Therapy completed) Levemir 100 unit /mL Sub-Q inject by subcutaneous route as per insulin sliding scale protocol - Active insulin detemir (LEVEMIR) 100 UNIT/ML injection pen Inject 40 Units into the skin nightly. 0 Active 3 ml insulin glargine 100 unt/ml pen injector (20 sources) Insulin Analog Start: 07-03-2025 End: 07-05-2025 inject 10 [IU] by subcutaneous injection once daily insulin glargine (LANTUS, SEMGLEE) 100 unit/mL (3 mL) insulin pen Inject 10 Units under the skin nightly. 15 mL 07/05/2025 Active Start: 12-07-2024 insulin glargi ne (Lantus SoloStar) [...] daily letrozole (FEMARA) 2.5 mg chemo tablet Take 1 tablet by mouth daily 90 tablet 3 01/25/2025 01/20/2026 Active Start: 03-18-2023 End: 11-24-2024 take 1 tablet by mouth once daily letrozole (FEMARA) 2.5 mg chemo tablet Indications: 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 female breast, unspecified estrogen receptor status ([facility]) TAKE 1 TABLET BY MOUTH EVERY DAY 90 tablet 3 01/04/2024 Active lidocaine 0.04 mg/mg medicated patch (20 sources) Antiarrhythmic, Amide Local Anesthetic Start: 01-11-2025 apply 1 dose transdermal route once daily lidocaine (SALONPAS) 4 % Place 1 patch on the skin daily. 30 patch 05/29/2025 Active lisinopril 5 mg oral tablet (15 sources) Angiotensin Converting Enzyme Inhibitor take 1 tablet by mouth once daily lisinopril 5 MG tablet Take 5 mg by mouth Daily Active loratadine 10 mg oral tablet (5 sources) take 1 tablet by mouth at bedtime loratadine (CLARITIN) 10 mg tablet Take 1 tablet (10 mg total) by mouth before bedtime. Active magnesium oxide 400 mg oral tablet (20 sources) Start: 07-02-2025 End: 07-05-2025 take 1 tablet by mouth in the morning magnesium oxide (MAGOX) 400 mg tablet Take 1 tablet (400 mg total) by mouth in the morning. 07/05/2025 Active Start: 02-24-2025 End: 05-15-2025 take 400 mg by mouth once daily 400 mg, oral, Daily, F irst dose on Wed05/14/25 at 1330 metoprolol tartrate 25 mg oral tablet (20 [...] sources) Polyene Antifungal Start: 09-06-2024 nystatin (Mycostatin) 859435 UNIT/GM powder Apply 1 Application topically in the morning and 1 Application at noon and 1 Application in the evening and 1 Application before bedtime. 09/06/2024 Active Start: 09-06-2024 End: 07-02-2025 nystatin (MYCOSTATIN) powder Indications: Beverly infection of flexural skin Apply 1 Application topically in the morning and 1 Application at noon and 1 Application in the evening and 1 Application before bedtime. 60 g 1 09/06/2024 07/02/2025 Discontinued oxybutynin chloride 5 mg oral tablet (14 sources) Cholinergic Muscarinic Antagonist take 1 tablet by mouth once daily oxybutynin (Ditropan) 5 MG tablet Take 1 tablet by mouth Daily Active pantoprazole 40 mg delayed release oral tablet (20 sources) Proton Pump Inhibitor Start: 07-19-20 take 1 tablet by mouth once daily before breakfast pantoprazole (PROTONIX) 40 mg EC tablet Take 1 tablet (40 mg total) by mouth every morning before breakfast. 07/19/2025 Active Start: 03-05-2024 End: 11-24-2024 take 1 tablet [...] in the morning. Take before meals. Active polyethylene glycol 3350 02755 mg powder for oral solution (11 sources) Osmotic Laxative Start: 07-18-2025 polyethylene glycol (GLYCOLAX) 17 gram packet Take 17 g by mouth in the morning and at bedtime. 07/18/2025 Active Start: 07-03-2025 End: 07-05-2025 polyethylene glycol (GLYCOLA X) 17 gram packet Take 17 g by mouth in the morning. 07/05/2025 Suspended Start: 12-09-2022 End: 12-09-2022 polyethylene glycol (GLYCOLA X) packet 17 g pravastatin sodium 40 mg oral tablet (2 sources) HMG-CoA Reductase Inhibitor take 1 tablet by mouth once daily pravastatin 40 mg Tab take 1 tablet (40MG) by oral route every day 40 MG - Active predniSONE 20 mg oral tablet (1 source) Start: End: 4 take 2 tablets by mouth in the morning predniSONE (DELTASONE) 20 mg tablet Take 2 tablets (40 mg total) by mouth in the morning for 3 days. 6 tablet 08/14/2024 08/17/2024 Active Completed/Discontinued Medications Medication Drug Class(es) Dates Sig (Normalized) Sig (Original) aluminum hydroxide 40 mg/ml / magnesium hydroxide 40 mg/ml / simethicone 4 mg/ml oral suspension (1 source) Start: 07-02-2025 End: 07-05-2025 amLODIPine 2.5 mg oral tablet (20 sources) [...] small hand veins VESICANT (RED) calcium gluconate 2,000 mg in sodium chloride 0.9 % 100 mL IVPB (1 source) Start: 07-02-2025 End: 07-05-2025 calcium gluconate 3,000 mg in sodium chloride 0.9 % 100 mL IVPB (2 sources) Start: 07-02-2025 End: 07-05-2025 Start: 05-14-2025 End: 05-15-2025 take 3.5-3.9 mg intravenously every hour as needed 3,000 mg, intravenous, at 43.3 mL/hr, Administer over 3 Hours, As needed, ionized calcium 3.5 to 3.9 mg/dL, Starting on Wed05/14/25 at 1011, IV Administration of calcium via a central or deep vein preferred. Avoid administration in small hand veins VESICANT (RED) calcium gluconate 4,000 mg i n sodium chloride 0.9 % 250 mL IVPB (2 sources) Start: 07-02-2025 End: 07-05-2025 Start: 05-14-2025 End: 05-15-2025 take 3.4 mg [...] (XYLOCAINE) 10 mg/mL (1 %) IM injection cefTRIAXone (ROCEPHIN) 1,000 mg in sodium chloride 0.9 % 50 mL IVPB W/ADAPTER (1 source) Start: 07-02-2025 End: 07-04-2025 take 1000 mg intravenously every twenty-four hours 1,000 mg, intravenous, at 100 mL/hr, Administer over 30 Minutes, Every 24 hours, First dose on Wed07/02/25 at 1815, For Vial-2-Bag: Attach bag and vial to adapter - Use immediately after activating; dissolve drug prior to administration., Indication: UTI clopidogrel 75 mg oral tablet (20 sources) [...] mL/hr, Administer over 30 Minutes, Once, On 03/26/25 at 0930, For 1 dose, Pathogen: MRSA [...] mL/hr, Administer over 30 Minutes, Once, On Kim 03/22/25 at 0830, For 1 dose, Pathogen: MRSA and unable to use vancomycin, Approved Indications: Bacteremia, Authorizing Service: ID consult has been placed Start: 03-20-2025 End: 03-20-2025 500 mg, intravenous, at 120 mL/hr, Administer over 30 Minutes, Once, On Tu03/20/25 at 0815, For 1 dose, Pathogen: MRSA [...] 1 mL 02/23/2025 04/04/2025 Active DEXCOM G6 CONTRACT POST OFFICE CLERK misc (7 sources) Start: 05-06-2023 End: 03-08-2024 DEXCOM G6 CONTRACT POST OFFICE CLERK misc 1 De vice by drain unit route See Admin Instructions. 05/06/2023 03/08/2024 Discontinued (Therapy completed) Start: 05-06-2023 DEXCOM G6 RECE IVER misc 1 Device by drain unit route See Admin Instructions. 0 05/06/2023 Active dextromethorphan hydrobromide 1.5 mg/ml / pyrilamine maleate 1.5 mg/ml oral solution (4 sources) Uncompetitive L-heagoe-G-aspartate Receptor Antagonist, Sigma-1 Agonist Start: 12-15-2023 End: 03-02-2024 take 5 mL by mouth every eight hours as needed for cough and congestion pyrilamine-dextromethorphan 7.5-7.5 mg/5 mL liquid Indications: Upper respiratory tract infection, unspecified type Take 5 mL by mouth every 8 (eight) hours as needed (cough and congestion). 100 mL 12/15/2023 03/02/2024 Discontinued (Therapy completed) docusate sodium 50 mg / sennosides, nursing home 8.6 mg oral tablet (2 sources) Start: 07-02-2025 End: 07-05-2025 take 1 tablet by mouth every twelve hours as needed for constipatio n Start: 05-13-2025 End: 05-15-2025 take 1 tablet by mouth every twelve hours as needed for constipation 1 tablet, oral, Every 12 hours PRN, constipation, Starting on 05/13/25 at 1445, Scheduling/ADT 0.4 ml enoxaparin sodium 100 mg/ml prefilled syringe (1 source) Low Molecular Weight Heparin Start: 07-03-2025 End: 07-05-2025 40 mg, subcutaneous, Daily, First dose on Wed07/03/25 at 0600, When Creatinine Clearance 30 mL/min or greater Look-alike/sound-alike medication - verify indication for use. folic acid 1 mg oral tablet (16 [...] verify indication for use. Start: 03-05-2024 End: 07-02-2025 take 1 capsule by mouth in the [...] 180 capsule 1 12/15/2023 01/18/2025 Discontinued (Reorder) End: 07-02-2025 take 2 capsules by mouth once daily gabapentin (NEURONTIN) 300 mg capsule Take 2 capsules (600 mg total) by mouth nightly. 07/02/2025 Discontinued take 1 capsule by mo uth in the morning gabapentin (NEURONTIN) 100 MG capsule Take 100 mg by mouth in the morning and 100 mg in the evening. 0 Active glucagon (rdna) 1 mg injecti on (3 sources) Antihypoglycemic Agent Start: 07-02-2025 End: 07-05-2025 Start: 05-13-2025 End: 05-15-2025 1 mg, intramuscular, As need ed, low blood sugar, blood glucose less than [...] 1 mg 150 ml glucose 50 mg/ml inje ction (11 sources) Start: 07-02-2025 End: 07-05-2025 Start: 07-02-2025 End: 07-05-2025 Start: 07-02-2025 End: 07-05-2025 Start: 05-13-2025 End: 05-15-2025 15 g, oral, [...] pen injector (20 sources) Insulin Analog Start: 07-02-2025 End: 07-05-2025 Start: 07-02-2025 End: 07-05-2025 2-10 Units, subcutaneous, 3 times daily with meals, First dose on Wed07/02/25 at 1815, Daytime hyperglycemia dosing. For blood glucose 151-200 mg/dL, give 2 units. For blood glucose 201-250 mg/dL, give 4 units. For blood glucose 251-300 mg/dL, give 6 units. For blood glucose 301-350 mg/dL, give 8 units. For blood glucose 351-400 mg/dL, give 10 units. Give even if NPO or meals skipped. Do NOT give more often then every 4 hours when NPO. Look-alike/sound-alike medication - verify indication for use. [...] hyperlipidemia associated with type 2 diabetes mellitus ([facility]) Inject 2 Units under the skin 4 [...] iopamidol (ISOVUE-370) 76 % injection 180 mL 50 ml magnesium sulfate 40 mg/ml injection (4 sources) Start: 07-02-2025 End: 07-05-2025 Start: 07-02-2025 End: 07-05-2025 Start: 05-14-2025 End: 05-15-2025 2,000 mg, intravenous, [...] Nightly, First dose on Wed05/14/25 at 0145 Start: 01-22-2025 take 1 tablet by wilson th once daily mirtazapine (REMERON) 7.5 mg tablet Indications: Insomnia, unspecified type Take 1 tablet (7.5 mg total) by mouth nightly. 90 tablet 1 01/22/2025 Active miscellaneous medical supply [facility] (7 sources) Start: 01-01-2021 End: 03-02-2024 miscellaneous medical supply mis Indications: Medication management 1 Unit by miscellaneous route See Admin Instructions. Split oral medication as indicated 1 each 01/01/2021 03/02/2024 Discontinued (Therapy completed) Start: 01-01-2021 miscellaneous medical supply [facility] Indications: Medication management 1 Unit by miscellaneous route See Admin Instructions. Split oral medication as indicated 1 each 0 01/01/2021 Active 2 ml ondansetron 2 mg/ml injection (13 sources) Serotonin-3 Receptor Antagonist Start: 07-02-2025 End: 07-05-2025 take 4 mg intravenously every four hours as needed for nausea and vomiting 4 mg, intravenous, Every 4 hours PRN, nausea, vomiting, Starting on 07/02/25 at 1811, Intravenous administration preferred to be given over 2-5 minutes. Start: 05-13-2025 End: 05-15-2025 take 4 mg [...] 12-07-2022 ondansetron (ZOFRAN) injecti on 4 mg take 1 tablet by wilson th every six hours as needed for nausea and vomiting ondansetron (ZOFRAN) 4 mg tablet Take 1 tablet (4 mg total) by mouth every 6 (six) hours as needed for nausea or vomiting. Active piperacillin 3000 mg / tazobactam 375 mg injection (1 source) Penicillin-class Antibacterial, beta Lactamase Inhibitor Start: 05-13-2025 End: 05-14-2025 take 3.375 g intravenously every eight hours 3.375 g, intravenous, at 12.5 mL/hr, Administer over 4 Hours, Every 8 hours, First dose on Wed05/13/25 at 1600, Scheduling/ADT, Start 4 hours after 4.5gram dose, Indication: Sepsis Potassium Chloride (2 sources) Start: 07-04-2025 End: 07-05-2025 potassium chloride (K-TAB,KLOR-CON) CR tablet 30-50 mEq Start: 05-14-2025 End: 05-15-2025 potassium chloride (K-TAB,KL OR-CON) CR tablet 30-50 mEq Promethazine (1 source) Phenothiazine Start: 07-02-2025 End: 07-05-2025 take 1 tablet by mouth every six hours as needed for nausea and vomiting promethazine (PHENERGAN) tablet 12.5 mg 72 hr scopolamine 0.0139 mg/hr transdermal system (1 source) Anticholinergic Start: 07-02-2025 End: 07-03-2025 1 patch, transdermal, Administer over 72 Hours, Every 72 hours, First dose on Wed07/02/25 at 1815, 1.5 mg patch delivers 1 mg scopolamine over 3 days. Patches are applied behind ear. Remove previous patch, before applying new. Remove patch prior to MRI procedure as serious rodriguez may occur. A new patch must be reapplied to an alternate site. sertraline 50 mg oral tablet (20 sources) Serotonin Reuptake Inhibitor Start: 07-02-2025 End: 07-05-2025 take 100 mg by mouth once daily 100 mg, oral, Daily, First dose on Wed07/02/25 at 1815, Look-alike/sound- alike medication - verify indication for use. Start: 05-14-2025 End: 05-15-2025 take 100 mg by mouth once daily 100 mg, oral, Daily, First dose on Wed05/14/25 at 0900, Look-alike/sound-alike medication - verify indication for use. Start: 01-28-2025 take 1 tablet by wilson th in the morning sertraline (ZOLOFT) 100 mg tablet Take 1 tablet (100 mg total) by mouth in the morning. 01/28/2025 Active [...] 50 mg by mouth daily. 0 Active 125 ml sodium chloride 9 mg/ ml prefilled syringe (20 sources) Start: 07-02-2025 End: 07-05-2025 3 mL, intravenous, Every 12 hours scheduled, First dose on Wed07/02/25 at 2100 Start: 07-02-2025 End: 07-03-2025 take 50 mL intravenously every hour 50 mL/hr, intravenous, Continuous, Starting on Wed07/02/25 at 1815, For 1 day Start: 07-02-2025 End: 07-05-2025 Start: 07-02-2025 End: 07-05-2025 Start: 05-13-2025 End: 05-14-2025 take 75 mL [...] On Wed05/13/25 at 1110, For 1 dose Start: 05-13-2025 [...] sodium chloride 0.9 % 250 mL IVPB (2 sources) Start: 07-02-2025 End: 07-05-2025 sodium phosphate 20 mmol in sodium chloride 0.9 % 250 mL IVPB Start: 05-14-2025 End: 05-15-2025 sodium phosphate 20 [...] Look-alike/sound-alike medication - verify indication for use. traZODone hydrochloride 50 mg oral tablet (20 sources) Serotonin Reuptake Inhibitor Start: 07-02-2025 End: 07-05-2025 take 100 mg by mouth once daily 100 mg, oral, Nightly, First dose on Wed07/02/25 at 2200, Look-alike/sound-alike medication - verify indication for use. Start: 09-28-2023 End: 05-15-2025 take 1 tablet by mouth once daily traZODone (DESYREL) 100 mg tablet Indications: Insomnia, unspecified type TAKE 1 TABLET BY MOUTH EVERY DAY AT NIGHT 90 tablet 1 11/28/2024 Active vitamin b12 0.5 mg oral tablet (20 sources) Vitamin B12 Start: 07-02-2025 End: 07-05-2025 take 1000 ug by mouth once daily 1,000 mcg, oral, Daily, First dose on Wed07/02/25 at 1815 Start: 02-25-2025 take 1 tablet by wilson th in the morning cyanocobalamin 1000 MCG tablet Take 1 tablet (1,000 mcg total) by mouth in the morning. 02/25/2025 Active Problems Active Problems Problem Classification Problem Date [...] Onset: 10-05-2022 01-13-2023 Chronic Chronic kidney disease (6 sources) Chronic kidney disease; Translations: [Chronic kidney disease, stage 3a] Onset: 01-13-2023 Chronic obstructive pulmonary disease and bronchiectasis (10 sources) Chronic obstructive pulmonary disease, unspecified; Translations: [Chronic obstructive lung disease] Onset: 03-20-2021 07-02-2025 Chronic Conduction disorders (20 sources) Left bundle branch block; Translations: [Left bundle-branch block, unspecified] Onset: 03-26-2020 06-14-2024 Chronic Congestive heart failure; nonhypertensive (20 sources) Acute on chronic diastolic heart failure; Translations: [Acute on chronic diastolic (congestive) heart failure] Onset: 10-05-2022 Resolved: 12-15-2023 12-15-2023 Chronic Coronary atherosclerosis and other heart disease (20 sources) Disorder of coronary artery; Translations: [Atherosclerotic heart disease of [place] coronary artery without angina pectoris] Onset: 10-14-2021 01-13-2023 Chronic Deficiency and other anemia (20 sources) Anemia of chronic disease; Translations: [Anemia in other chronic diseases classified elsewhere] Onset: 09-07-2017 11-09-2024 Chronic Deficiency and other anemia (1 source) Iron deficiency anemia due to blood loss; Translations: [Iron deficiency anemia secondary to blood loss (chronic)] 07-05-2025 Chronic Deficiency and other anemia (1 source) Iron deficiency anemia secondary to blood loss (chronic); Translations: [Iron deficiency anemia secondary to blood loss (chronic)] Onset: 07-02-2025 Chronic Deficiency and other anemia (1 source) Anemia in other chronic diseases classified elsewhere; Translations: [Anemia in other chronic diseases classified elsewhere] Onset: 07-13-2025 Chronic Deficiency and other anemia (5 sources) Anemia; Translations: [Anemia, unspecified] Onset: 01-13-2023 01-13-2023 Episodic Diabetes mellitus with complications (20 sources) Type 2 diabetes mellitus; Translations: [Type 2 diabetes mellitus with diabetic neuropathy, unspecified] Onset: 05-25-2017 01-13-2023 Chronic Diabetes mellitus without complication (15 sources) Type 2 diabetes mellitus without complications; Translations: [Insulin treated type 2 diabetes mellitus] Onset: 03-20-2021 04-04-2025 Chronic Disorders of lipid metabolism (3 sources) Pure hypercholesterolemia , unspecified; Translations: [Mixed hyperlipidemia] Onset: 04-07-2021 Chronic E Codes: Fall (1 source) Fall Onset: 03-24-2025 Esophageal disorders (20 sources) Gastro-esophageal reflux disease without esophagitis; Translations: [Gastroesophageal reflux disease without esophagitis] Onset: 05-25-2017 11-09-2024 Chronic Essential hypertension (20 sources) Essential (primary) hypertension; Translations: [Essential hypertension] Onset: 09-14-2019 Resolved: 12-02-2021 11-09-2024 Chronic Fracture of neck of femur (hip) (20 sources) Closed fracture of hip; Translations: [Closed [...] chronic kidney disease] Onset: 04-02-2023 06-14-2024 Chronic Malaise and fatigue (20 sources) Asthenia; Translations: [Weakness] Onset: 04-12-2024 06-14-2024 Episodic Mood disorders (20 sources) Major depressive disorder, single episode, unspecified; Translations: [Moderate recurrent major depression] Onset: 01-30-2019 Resolved: 12-14-2019 07-17-2019 Chronic Nausea and vomiting (18 sources) Intractable nausea and vomiting; Translations: [Nausea with vomiting, unspecified] Onset: 10-11-2024 07-02-2025 Episodic Osteoarthritis (20 sources) Primary gonarthrosis, bilateral; Translations: [Bilateral primary osteoarthritis of knee] Onset: 10-26-2018 10-26-2018 Chronic Other aftercare (1 source) Other [facility] (current) drug therapy; Translations: [OTH HALFWAY CURRENT 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] Onset: 04-07-2021 Episodic Other [...] detachment), both eyes] Onset: 01-18-2025 Chronic Other female genital disorders (11 sources) Mass of uterine adnexa; Translations: [Other specified conditions associated with female genital organs and menstrual cycle] Onset: 07-03-2025 07-03-2025 Episodic Other female genital disorders (2 sources) Other specified conditions associated with female genital organs and menstrual cycle; Translations: [Other specified conditions associated with female genital organs and menstrual cycle] Onset: 07-02-2025 Episodic Other fractures (5 sources) Fracture of pelvis; Translations: [Fracture of unspecified parts of lumbosacral spine and pelvis, initial encounter for closed fracture] Onset: 07-13-2025 07-13-2025 Episodic Other fractures (1 source) Closed fracture of pelvis; Translations: [Fracture of unspecified parts of lumbosacral spine and pelvis, subsequent encounter for fracture with routine healing] 07-20-2025 Episodic Other fractures (1 source) Fracture of unspecified parts of lumbosacral spine and pelvis, initial encounter for closed fracture; Translations: [Fracture of unspecified parts of lumbosacral spine and pelvis, initial encounter for closed fracture] Onset: 07-12-2025 Episodic Other nervous system disorders (20 sources) [...] Onset: 01-13-2023 Episodic Other non-traumatic joint disorders (12 sources) Hip pain; Translations: [Pain in right hip] Onset: 05-11-2025 06-05-2025 Episodic Other non-traumatic joint disorders (1 source) Pain in right hip; Translations: [Pain in right hip] Onset: 07-10-2025 Episodic Other nutritional; endocrine; and metabolic disorders (20 sources) Obesity; Translations: [Obesity, unspecified] Onset: 04-11-2024 10-28-2024 Chronic Other nutritional; endocrine; and metabolic disorders (20 sources) Hypomagnesemia; Translations: [Hypomagnesemia] Onset: 06-14-2024 06-14-2024 Chronic Other nutritional; endocrine; and metabolic disorders (2 sources) Hypomagnesemia; Translations: [Hypomagnesemia] Onset: 06-14-2024 Chronic Other upper respiratory disease (1 source) Rhinitis; Translations: [Chronic rhinitis] 07-16-2025 Chronic Pathological fracture (9 sources) Pathological fracture of proximal end of femur; Translations: [Pathological fracture, hip, unspecified, initial encounter for fracture] Onset: 07-12-2025 07-12-2025 Episodic Peripheral and visceral atherosclerosis (20 sources) Peripheral [...] system] Onset: 01-13-2023 Episodic Residual codes; unclassified (1 source) Clouded [...] displacement, lumbar region] Onset: 06-27-2018 07-15-2022 Chronic Suicide and intentional self-inflicted injury [...] Female Dysuria Onset: 01-10-2025 Unclassified (1 source) Low Blood Sugar - No Symptoms Onset: 01-03-2025 Unclassified (1 source) Painful Urination Onset: 10-09-2024 Unclassified (1 source) Low Blood Sugar - Symptomatic Onset: 08-23-2024 Unclassified (1 source) Weakness - Generalized Onset: 08-12-2024 Unclassified (1 source) Ill Onset: 08-12-2024 Urinary tract infections (20 sources) Acute cystitis [...] 4 08-12-2024 Episodic Deficiency and other anemia (12 sources) Iron deficiency anemia; Translations: [Iron deficiency anemia, unspecified] Onset: 4 05-14-2025 Episodic Deficiency and other anemia (1 source) Anemia, unspecified; Translations: [Anemia, unspecified] Onset: 4 Episodic E Codes: Fall (1 source) Unspecified fall, initial encounter; Translations: [Unspecified fall, initial encounter] Onset: 5 Episodic Fever of unknown origin (1 source) [...] 4 08-28-2024 Episodic Mood disorders (20 sources) Mood disorders Onset: 4 Resolved: 5 10-28-2024 Mycoses (3 sources) Candidal intertrigo; Translations: [Candidiasis of skin and nail] Onset: 5 09-06-2024 Episodic Other aftercare (3 sources) nursing home (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; Translations: [SIGNAL 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 INSULIN] Onset: 1 Episodic [...] (1 source) Itching Onset: 4 Episodic Other injuries and conditions due to external causes (2 sources) Other injury of unspecified body region, initial encounter; Translations: [Other injury of unspecified body region, initial encounter] Onset: 5 Episodic Other lower respiratory disease (3 sources) [...] Episodic Other lower respiratory disease (20 sources) Hypoxia; Translations: [Hypoxemia] Onset: 5 03-16-2025 Episodic Other nervous system disorders (20 [...] Onset: 4 06-14-2024 Episodic Residual codes; unclassified (20 sources) Altered mental status; Translations: [Altered mental status, unspecified] Onset: 4 08-23-2024 Episodic Residual codes; unclassified (1 source) Insomnia, [...] lumbar region] Onset: 8 05-27-2021 Episodic Unclassified (20 sources) Onset: 4 Resolved: 5 02-09-2024 Unclassified (2 sources) AMD (chief complaint) Onset: 5 Viral infection (20 sources) Disease caused by 2019-nCoV; Translations: [COVID-19] Onset: 4 08-12-2024 Episodic Results Test Name Value Interpretation Reference Range Facility BEDSIDE GLUCOSEon 07-18-2025 Glucose [Mass/Vol] 92 mg/dL Normal 65-99 [facility] Comment on above: Performed By: #### C BCA, CMP, 49244-4 #### [facility] ([id number]) [address], [address] [place] [address] CBC WITH AUTO DIFFERENTIALon 07-18-2025 Band form neutrophils/100 WBC (Bld) 1 % Normal [facility] Comment on above: Result Comment: This is an appended report. These results have been appended to a previously preliminary verified report. Performed By: #### C BCA, CMP, [id number] #### [facility] ([id number]) [address], [address] [place] [address] CELLAVISION DIFFERENTIAL TYPE MANUAL DIFFERENTIAL Normal [facility] Comment on above: Result Comment: This is an appended report. These results have been appended to a previously preliminary verified report. Performed By: #### Renita BCA, CMP, 79421-2 #### [facility] ([id number]) [address], [address] [place] [address] CELLAVISION ELLIPTOCYTES IN BLOOD BY LIGHT MICROSCOPY 1+ Normal [facility] Comment on above: Result Comment: This is an appended report. These results have been appended to a previously preliminary verified report. Performed By: #### C BCA, CMP, [id number] #### [facility] ([id number]) [address], [address] [place] [address] CELLAVISION EOSINOPHILS ABSOLUTE COUNT (10*3/UL) BY MANUAL COUNT 0.4 10*3/uL Normal 0.0-0.4 [facility] Comment on above: Result Comment: This is an appended report. These results have been appended to a previously preliminary verified report. Performed By: #### C NATIVIDAD CMP, [id number] #### [facility] ([id number]) [address], [address] [place] [address] CELLAVISION EOSINOPHILS PERCENT BY MANUAL COUNT 5 % Normal [facility] Comment on above: Result Comment: This is an appended report. These results have been appended to a previously preliminary verified report. Performed By: #### C NATIVIDAD, [place], 87086-5 #### [facility] ([id number]) [address], [address] [place] [address] CELLAVISION LYMPHOCYTES ABSOLUTE COUNT (10*3/UL) BY MANUAL COUNT 1.6 10*3/uL Normal 1.0-3.5 [facility] Comment on above: Result Comment: This is an appended report. These results have been appended to a previously preliminary verified report. Performed By: #### C NATIVIDAD [place], #### [facility] ([id number]) [address], [address] [place] [address] CELLAVISION LYMPHOCYTES RELATIVE PERCENT BY MANUAL COUNT 18 % Normal [facility] Comment on above: Result Comment: This is an appended report. These results have been appended to a previously preliminary verified report. Performed By: #### C BCA, CMP, #### [facility] ([id number]) [address], [address] [place] [address] CELLAVISION MONOCYTES ABSOLUTE COUNT (10*3/UL) IN BLOOD BY MANUAL COUNT 0.7 10*3/uL Normal 0.0-0.9 [facility] Comment on above: Result Comment: This is an appended report. These results have been appended to a previously preliminary verified report. Performed By: #### Renita BCA, CMP, #### [facility] ([id number]) [address], [address] [place] [address] CELLAVISION MONOCYTES RELATIVE PERCENT BY MANUAL COUNT 8 % Normal [facility] Comment on above: Result Comment: This is an appended report. These results have been appended to a previously preliminary verified report. Performed By: #### C BCA, [place], [id number] #### [facility] ([id number]) [address], [address] [place] [address] CELLAVISION MYELOCYTE RELATIVE PERCENT BY MANUAL COUNT 2 % Normal [facility] Comment on above: Result Comment: This is an appended report. These results have been appended to a previously preliminary verified report. Performed By: #### C BCA, [place], 13415-6 #### [facility] ([id number]) [address], [address] [place] [address] CELLAVISION NEUTROPHILS ABSOLUTE COUNT BY MANUAL COUNT 5.9 10*3/uL Normal 1.5-6.6 [facility] Comment on above: Result Comment: This is an appended report. These results have been appended to a previously preliminary verified report. Performed By: #### C BCA, [place], #### [facility] ([id number]) [address], [address] [place] [address] CELLAVISION NEUTROPHILS RELATIVE PERCENT BY MANUAL COUNT 66 % Normal [facility] Comment on above: Result Comment: This is an appended report. These results have been appended to a previously preliminary verified report. Performed By: #### C BCA, CMP, [id number] #### [facility] ([id number]) [address], [address] [place] [address] CELLAVISION POLYCHROMASIA IN BLOOD BY LIGHT MICROSCOPY 1+ Normal [facility] Comment on above: Result Comment: This is an appended report. These results have been appended to a previously preliminary verified report. Performed By: #### C BCA, CMP, #### [facility] ([id number]) [address], [address] [place] [address] Erythrocyte distribution width (RBC) [Ratio] 17.1 % High 11.5-15 [facility] Comment on above: Performed By: #### C NATIVIDAD, CMP, #### [facility] ([id number]) [address], [address] [place] [address] Hematocrit (Bld) [Volume fraction] 25.0 % Low 35-47 [facility] Comment on above: Performed By: #### C NATIVIDAD, CMP, #### [facility] ([id number]) [address], [facility] [address] [place] [address] Hemoglobin (Bld) [Mass/Vol] 8.4 g/dL Low 11.7-15.5 [facility] Comment on above: Performed By: #### Renita BCA, CMP, #### [facility] ([id number]) [address], [address] [place] [address] MCH (RBC) [Entitic mass] 28.3 pg Normal 27-34 [facility] Comment on above: Performed By: #### Renita BCA, CMP, #### [facility] ([id number]) [address], [address] [place] [address] MCHC (RBC) [Mass/Vol] 33.8 g/dL Normal 32-36 [facility] Comment on above: Performed By: #### C BCA, CMP, #### [facility] ([id number]) [address], [facility] [address] [place] [address] MCV (RBC) [Entitic vol] 84 fL Normal 80-100 [facility] Comment on above: Performed By: #### C BCA, CMP, #### [facility] ([id number]) [address], [address] [place] [address] Platelet mean volume (Bld) [Entitic vol] 7.9 fL Normal 7-12 [facility] Comment on above: Performed By: #### C BCA, CMP, [id number] #### [facility] ([id number]) [address], [facility] [address] [place] [address] Platelets (Bld) [#/Vol] 221 10*3/uL Normal 150-450 [facility] Comment on above: Performed By: #### C BCA, CMP, #### [facility] ([id number]) [address], [facility] [address] [place] [address] RBC COUNT 2.97 X10E12/L Low 3.8-5.2 [facility] Comment on above: Performed By: #### C BCA, CMP, #### [facility] ([id number]) [address], [facility] [address] [place] [address] WBC (Bld) [#/Vol] 8.8 10*3/uL Normal 4-11 [facility] Comment on above: Performed By: #### C BCA, CMP, 39175-0 #### [facility] ([id number]) [address], [address] [place] [address] COMPREHENSIVE METABOLIC PANE Dickson 07-18-2025 Albumin [Mass/Vol] 2.8 g/dL Low 3.2-5.3 [facility] Comment on above: Performed By: #### C BCA, CMP, #### [facility] ([id number]) [address], [address] [place] [address] ALP [Catalytic activity/Vol] 111 U/L Normal 39-130 [facility] Comment on above: Performed By: #### C BCA, CMP, #### [facility] ([id number]) [address], [address] [place] [address] ALT [Catalytic activity/Vol] U/L Normal <=31 [facility] Comment on above: Performed By: #### Renita HENSON CMP, #### [facility] ([id number]) [address], [address] [place] [address] Anion gap [Moles/Vol] 5 mmol/L Normal 5-15 [facility] Comment on above: Performed By: #### Renita HENSON CMP, #### [facility] ([id number]) [address], [address] [place] [address] AST [Catalytic activity/Vol] 21 U/L Normal <=41 [facility] Comment on above: Performed By: #### Renita HENSON CMP, #### [facility] ([id number]) [address], [address] [place] [address] Bilirubin [Mass/Vol] 0.5 mg/dL Normal 0.3-1.2 [facility] Comment on above: Performed By: #### Renita HENSON CMP, #### [facility] ([id number]) [address], [address] [place] [address] Calcium [Mass/Vol] 9.3 mg/dL Normal 8.5-10.5 [facility] Comment on above: Performed By: #### Renita HENSON CMP, #### [facility] ([id number]) [address] [place] [address] Chloride [Moles/Vol] 108 mmol/L Normal 98-109 [facility] Comment on above: Performed By: #### Renita HENSON CMP, #### [facility] ([id number]) [address] [place] [address] CO2 [Moles/Vol] 27 mmol/L Normal 22-32 [facility] Comment on above: Performed By: #### C RUBEN HENSON, #### [facility] ([id number]) [address] [address] [place] [address] Creatinine [Mass/Vol] 1.18 mg/dL High 0.40-1.00 [facility] Comment on above: Result Comment: METH OD TRACEABLE TO IDMS STANDARD Performed By: #### C RUBEN HENSON, #### [facility] ([id number]) [address] [address] GFR/1.73 sq M.predicted among non-blacks MDRD (S/P/Bld) [Vol rate/Area] 47 mL/min/{1.73_m2} Low >=60 [facility] [facility] Comment on above: Result Comment: Repo rted eGFR is based on the CKD-EPI 2020 equation that does not use a race coefficient. Performed By: #### C RUBEN HENSON, #### [facility] ([id number]) [address] [address] Glucose [Mass/Vol] 81 mg/dL Normal 65-99 [facility] Comment on above: Performed By: #### C NATIVIDAD [facility], 29013-7 #### [facility] ([id number]) [address] [address] Potassium [Moles/Vol] 4.7 mmol/L Normal 3.5-5.0 [facility] Comment on above: Performed By: #### C NATIVIDAD CMP, #### [facility] ([id number]) [address] [address] Protein [Mass/Vol] 5.8 g/dL Low 6.0-8.0 [facility] Comment on above: Performed By: #### C NATIVIDAD CMP, #### [facility] ([id number]) [address] [place] [address] Sodium [Moles/Vol] 140 mmol/L Normal 134-146 [facility] Comment on above: Performed By: #### Renita HENSON CMP, 00853-0 #### [facility] ([id number]) [address] [place] [address] Urea nitrogen [Mass/Vol] 23 mg/dL Normal 5-27 [facility] Comment on above: Performed By: #### Renita HENSON CMP, #### [facility] ([id number]) [address] [place] [address] MAGNESIUMon 07-18-2025 Magnesium [Mass/Vol] 1.8 mg/dL Normal 1.8-2.6 [facility] Comment on above: Performed By: #### Renita HENSON CMP, #### [facility] ([id number]) [address] [place] [address] BEDSIDE GLUCOSEon 07-17-2025 Glucose [Mass/Vol] 189 mg/dL High 65-99 [facility] Comment on above: Performed By: #### Renita HENSON CMP, #### [facility] ([id number]) [address] [place] [address] Glucose [Mass/Vol] 239 mg/dL High 65-99 [facility] Comment on above: Performed By: #### Renita HENSON CMP, #### [facility] ([id number]) [address] [place] [address] Glucose [Mass/Vol] 240 mg/dL High 65-99 [facility] Comment on above: Performed By: #### Renita HENSON CMP, 66237-1 #### [facility] ([id number]) [address] [place] [address] Glucose [Mass/Vol] 175 mg/dL High 65-99 [facility] Comment on above: Performed By: #### C BCA, CMP, #### [facility] ([id number]) [address] [place] [address] Glucose [Mass/Vol] 135 mg/dL High 65-99 [facility] Comment on above: Performed By: #### C NATIVIDAD, CMP, #### [facility] ([id number]) [address] [facility] [address] [place] [address] CBC WITH AUTO DIFFERENTIALon 07-17-2025 BASOPHILS ABSOLUTE COUNT (10*3/UL) BY AUTOMATED COUNT 0.0 10*3/uL Normal 0.0-0.2 [facility] Comment on above: Performed By: #### C NATIVIDAD, CMP, #### [facility] ([id number]) [address] [place] [address] BASOPHILS RELATIVE PERCENT BY AUTOMATED COUNT 0.4 % Normal [facility] Comment on above: Performed By: #### Renita BCA, CMP, #### [facility] ([id number]) [address] [place] [address] CELLAVISION DIFFERENTIAL TYPE AUTOMATED DIFFERENTIAL Normal [facility] Comment on above: Performed By: #### Renita HENSON, CMP, #### [facility] ([id number]) [address] [place] [address] Eosinophils (Bld) [#/Vol] 0.4 10*3/uL Normal 0.0-0.4 [facility] Comment on above: Performed By: #### C BCA, CMP, #### [facility] ([id number]) [address] [place] [address] EOSINOPHILS RELATIVE PERCENT BY AUTOMATED COUNT 5.4 % Normal [facility] Comment on above: Performed By: #### C BCA, CMP, #### [facility] ([id number]) [address] [place] [address] Erythrocyte distribution width (RBC) [Ratio] 17.9 % High 11.5-15 [facility] Comment on above: Performed By: #### C NATIVIDAD, CMP, #### [facility] ([id number]) [address] [facility] [address] [place] [address] Hematocrit (Bld) [Volume fraction] 20.9 % Low 35-47 [facility] Comment on above: Performed By: #### Renita HENSON, CMP, #### [facility] ([id number]) [address] [facility] [address] [place] [address] Hemoglobin (Bld) [Mass/Vol] 6.8 g/dL Critically low 11.7-15.5 [facility] Comment on above: Performed By: #### Renita HENSON, CMP, #### [facility] ([id number]) [address] [facility] [address] [place] [address] LYMPHOCYTES ABSOLUTE COUNT (10*3/UL) BY AUTOMATED COUNT 1.6 10*3/uL Normal 1.0-3.5 [facility] Comment on above: Performed By: #### Renita HENSON, CMP, #### [facility] ([id number]) [address] [facility] [address] [place] [address] LYMPHOCYTES RELATIVE PERCENT BY AUTOMATED COUNT 22.4 % Normal [facility] Comment on above: Performed By: #### Renita HENSON, CMP, #### [facility] ([id number]) [address] [address] [place] [address] MCH (RBC) [Entitic mass] 27.7 pg Normal 27-34 [facility] Comment on above: Performed By: #### Renita HENSON, CMP, #### [facility] ([id number]) [address] [place] [address] MCHC (RBC) [Mass/Vol] 32.7 g/dL Normal 32-36 [facility] Comment on above: Performed By: #### C NATIVIDAD, CMP, 98518-9 #### [facility] ([id number]) [address] [place] [address] MCV (RBC) [Entitic vol] 85 fL Normal 80-100 [facility] Comment on above: Performed By: #### C NATIVIDAD, CMP, #### [facility] ([id number]) [address] [place] [address] MONOCYTES ABSOLUTE COUNT (10*3/UL) BY AUTOMATED COUNT 0.7 10*3/uL Normal 0.0-0.9 [facility] Comment on above: Performed By: #### Renita HENSON, CMP, #### [facility] ([id number]) [address] [place] [address] MONOCYTES RELATIVE PERCENT BY AUTOMATED COUNT 10.1 % Normal [facility] Comment on above: Performed By: #### Renita BCA, CMP, #### [facility] ([id number]) [address] [place] [address] NEUTROPHILS ABSOLUTE COUNT BY AUTOMATED COUNT 4.5 10*3/uL Normal 1.5-6.6 [facility] Comment on above: Performed By: #### C BCA, CMP, #### [facility] ([id number]) [address] [place] [address] NEUTROPHILS RELATIVE PERCENT BY AUTOMATED COUNT 61.7 % Normal [facility] Comment on above: Performed By: #### Renita BCA, CMP, #### [facility] ([id number]) [address] [place] [address] Platelet mean volume (Bld) [Entitic vol] 8.4 fL Normal 7-12 [facility] Comment on above: Performed By: #### C NATIVIDAD, CMP, 88892-1 #### [facility] ([id number]) [address] [place] [address] Platelets (Bld) [#/Vol] 187 10*3/uL Normal 150-450 [facility] Comment on above: Performed By: #### C BCA, CMP, #### [facility] ([id number]) [address] [facility] [address] [place] [address] RBC COUNT 2.47 X10E12/L Low 3.8-5.2 [facility] Comment on above: Performed By: #### C BCA, CMP, 43948-5 #### [facility] ([id number]) [address] [facility] [address] [place] [address] WBC (Bld) [#/Vol] 7.3 10*3/uL Normal 4-11 [facility] Comment on above: Performed By: #### C NATIVIDAD, CMP, 37296-0 #### [facility] ([id number]) [address] [place] [address] COMPREHENSIVE METABOLIC PANE Dickson 07-17-2025 Albumin [Mass/Vol] 2.8 g/dL Low 3.2-5.3 [facility] Comment on above: Performed By: #### C BCA, CMP, #### [facility] ([id number]) [address] [place] [address] ALP [Catalytic activity/Vol] 109 U/L Normal 39-130 [facility] Comment on above: Performed By: #### C BCA, CMP, #### [facility] ([id number]) [address] [place] [address] ALT [Catalytic activity/Vol] U/L Normal <=31 [facility] Comment on above: Performed By: #### C BCA, CMP, #### [facility] ([id number]) [address] [place] [address] Anion gap [Moles/Vol] 6 mmol/L Normal 5-15 [facility] Comment on above: Performed By: #### C BCA, CMP, #### [facility] ([id number]) [address] [place] [address] AST [Catalytic activity/Vol] 15 U/L Normal <=41 [facility] Comment on above: Performed By: #### C NATIVIDAD, CMP, #### [facility] ([id number]) [address] [place] [address] Bilirubin [Mass/Vol] 0.4 mg/dL Normal 0.3-1.2 [facility] Comment on above: Performed By: #### C BCA, CMP, #### [facility] ([id number]) [address] [place] [address] Calcium [Mass/Vol] 8.8 mg/dL Normal 8.5-10.5 [facility] Comment on above: Performed By: #### C BCA, CMP, #### [facility] ([id number]) [address] [place] [address] Chloride [Moles/Vol] 109 mmol/L Normal 98-109 [facility] Comment on above: Performed By: #### C BCA, CMP, #### [facility] ([id number]) [address] [place] [address] CO2 [Moles/Vol] 25 mmol/L Normal 22-32 [facility] Comment on above: Performed By: #### C BCA, CMP, #### [facility] ([id number]) [address] [place] [address] Creatinine [Mass/Vol] 1.26 mg/dL High 0.40-1.00 [facility] Comment on above: Result Comment: METH OD TRACEABLE TO IDMS STANDARD Performed By: #### C RUBEN HENSON, 48665-8 #### [facility] ([id number]) [address] [place] [address] GFR/1.73 sq M.predicted among non-blacks MDRD (S/P/Bld) [Vol rate/Area] 43 mL/min/{1.73_m2} Low >=60 [facility] Comment on above: Result Comment: Repo rted eGFR is based on the CKD-EPI 2020 equation that does not use a race coefficient. Performed By: #### C RUBEN HENSON, #### [facility] ([id number]) [address] [place] [address] Glucose [Mass/Vol] 176 mg/dL High 65-99 [facility] Comment on above: Performed By: #### C [facility]AD [facility], #### [facility] ([id number]) [address] [place] [address] Potassium [Moles/Vol] 4.1 mmol/L Normal 3.5-5.0 [facility] Comment on above: Performed By: #### C BCA, CMP, #### [facility] ([id number]) [address] [place] [address] Protein [Mass/Vol] 5.5 g/dL Low 6.0-8.0 [facility] Comment on above: Performed By: #### C NATIVIDAD, CMP, #### [facility] ([id number]) [address] [place] [address] Sodium [Moles/Vol] 140 mmol/L Normal 134-146 [facility] Comment on above: Performed By: #### Renita HENSNO CMP, #### [facility] ([id number]) [address] [place] [address] Urea nitrogen [Mass/Vol] 27 mg/dL Normal 5-27 [facility] Comment on above: Performed By: #### Renita HENSON CMP, #### [facility] ([id number]) [address] [place] [address] HEMOGLOBIN AND HEMATOCRIT, B LOODon 07-17-2025 Hematocrit (Bld) [Volume fraction] 24.9 % Low 35-47 [facility] Comment on above: Performed By: #### Renita HENSON CMP, #### [facility] ([id number]) [address] [place] [address] Hemoglobin (Bld) [Mass/Vol] 8.2 g/dL Low 11.7-15.5 [facility] Comment on above: Performed By: #### Renita HENSON CMP, #### [facility] ([id number]) [address] [place] [address] MAGNESIUMon 07-17-2025 Magnesium [Mass/Vol] 1.9 mg/dL Normal 1.8-2.6 [facility] Comment on above: Performed By: #### Renita HENSON CMP, #### [facility] ([id number]) [address] [place] [address] TYPE AND SCREENon 07-17-2025 ABO_INTEP O Normal [facility] Comment on above: Performed By: #### Renita HENSON, CMP, #### [facility] ([id number]) [address] [place] [address] RH_INTEP Negative Normal [facility] Comment on above: Performed By: #### Renita HENSON [facility], 92716-5 #### [facility] ([id number]) [address] [place] [address] BEDSIDE GLUCOSEon 07-16-2025 Glucose [Mass/Vol] 186 mg/dL High 65-99 [facility] Comment on above: Performed By: #### Renita HENSON [facility], 82770-9 #### [facility] ([id number]) [address] [place] [address] Glucose [Mass/Vol] 199 mg/dL High 65-99 [facility] Comment on above: Performed By: #### Renita HENSON [facility], 76510-5 #### [facility] ([id number]) [address] [place] [address] Glucose [Mass/Vol] 113 mg/dL High 65-99 [facility] Comment on above: Performed By: #### Renita HENSON [facility], 01129-4 #### [facility] ([id number]) [address] [place] [address] Glucose [Mass/Vol] 72 mg/dL Normal 65-99 [facility] Comment on above: Performed By: #### Renita HENSON [facility], 36527-6 #### [facility] ([id number]) [address] [place] [address] CBC WITH AUTO DIFFERENTIALon 07-16-2025 Band form neutrophils/100 WBC (Bld) 3 % Normal [facility] Comment on above: Result Comment: This is an appended report. These results have been appended to a previously preliminary verified report. Performed By: #### Renita HENSON, CMP, 41454-0 #### [facility] ([id number]) [address] [place] [address] CELLAVISION BASOPHILS ABSOLUTE COUNT (10*3/UL) BY MANUAL COUNT 0.1 10*3/uL Normal 0.0-0.2 [facility] Comment on above: Result Comment: This is an appended report. These results have been appended to a previously preliminary verified report. Performed By: #### C NATIV[facility]AD [facility], 07644-5 #### [facility] ([id number]) [address] [place] [address] CELLAVISION BASOPHILS RELATIVE PERCENT BY MANUAL COUNT 1 % Normal [facility] Comment on above: Result Comment: This is an appended report. These results have been appended to a previously preliminary verified report. Performed By: #### Renita HENSON [facility], 65664-5 #### [facility] ([id number]) [address] [place] [address] CELLAVISION DIFFERENTIAL TYPE MANUAL DIFFERENTIAL Normal [facility] Comment on above: Result Comment: This is an appended report. These results have been appended to a previously preliminary verified report. Performed By: #### Renita HENSON [facility], 71618-9 #### [facility] ([id number]) [address] [place] [address] CELLAVISION EOSINOPHILS ABSOLUTE COUNT (10*3/UL) BY MANUAL COUNT 0.5 10*3/uL High 0.0-0.4 [facility] Comment on above: Result Comment: This is an appended report. These results have been appended to a previously preliminary verified report. Performed By: #### C NATIVIDAD [facility], 33148-0 #### [facility] ([id number]) [address] [place] [address] CELLAVISION EOSINOPHILS PERCENT BY MANUAL COUNT 5 % Normal [facility] Comment on above: Result Comment: This is an appended report. These results have been appended to a previously preliminary verified report. Performed By: #### Renita HENSON CMP, 02668-2 #### [facility] ([id number]) [address] [place] [address] CELLAVISION LYMPHOCYTES ABSOLUTE COUNT (10*3/UL) BY MANUAL COUNT 1.5 10*3/uL Normal 1.0-3.5 [facility] Comment on above: Result Comment: This is an appended report. These results have been appended to a previously preliminary verified report. Performed By: #### C RUBEN HENSON, 43109-1 #### [facility] ([id number]) [address] [place] [address] CELLAVISION LYMPHOCYTES RELATIVE PERCENT BY MANUAL COUNT 17 % Normal [facility] Comment on above: Result Comment: This is an appended report. These results have been appended to a previously preliminary verified report. Performed By: #### C NATIVIDAD [facility], 90252-9 #### [facility] ([id number]) [address] [place] [address] CELLAVISION MONOCYTES ABSOLUTE COUNT (10*3/UL) IN BLOOD BY MANUAL COUNT 0.7 10*3/uL Normal 0.0-0.9 [facility] Comment on above: Result Comment: This is an appended report. These results have been appended to a previously preliminary verified report. Performed By: #### C NATIVIDAD [facility], 29644-9 #### [facility] ([id number]) [address] [place] [address] CELLAVISION MONOCYTES RELATIVE PERCENT BY MANUAL COUNT 8 % Normal [facility] Comment on above: Result Comment: This is an appended report. These results have been appended to a previously preliminary verified report. Performed By: #### C NATIVIDAD CMP, 21494-3 #### [facility] ([id number]) [address] [place] [address] CELLAVISION MYELOCYTE RELATIVE PERCENT BY MANUAL COUNT 1 % Normal [facility] Comment on above: Result Comment: This is an appended report. These results have been appended to a previously preliminary verified report. Performed By: #### Renita HENSON, CMP, 14209-1 #### [facility] ([id number]) [address] [place] [address] CELLAVISION NEUTROPHILS ABSOLUTE COUNT BY MANUAL COUNT 6.2 10*3/uL Normal 1.5-6.6 [facility] Comment on above: Result Comment: This is an appended report. These results have been appended to a previously preliminary verified report. Performed By: #### Renita HENSON [facility], 29306-3 #### [facility] ([id number]) [address] [place] [address] CELLAVISION NEUTROPHILS RELATIVE PERCENT BY MANUAL COUNT 67 % Normal [facility] Comment on above: Result Comment: This is an appended report. These results have been appended to a previously preliminary verified report. Performed By: #### Renita HENSON [facility], 83383-9 #### [facility] ([id number]) [address] [place] [address] CELLAVISION NUCLEATED RED BLOOD CELLS IN BLOOD BY LIGHT MICROSCOPY 1 Normal [facility] Comment on above: Result Comment: This is an appended report. These results have been appended to a previously preliminary verified report. Performed By: #### Renita HENSON [facility], 68721-1 #### [facility] ([id number]) [address] [place] [address] CELLAVISION RBC MORPHOLOGY Normal Normal [facility] Comment on above: Result Comment: This is an appended report. These results have been appended to a previously preliminary verified report. Performed By: #### Renita HENSON CMP, 91058-9 #### [facility] ([id number]) [address] [place] [address] Erythrocyte distribution width (RBC) [Ratio] 17.5 % High 11.5-15 [facility] Comment on above: Performed By: #### Renita HENSON CMP, 13033-3 #### [facility] ([id number]) [address] [place] [address] Hematocrit (Bld) [Volume fraction] 22.9 % Low 35-47 [facility] Comment on above: Performed By: #### C NATIVIDAD, CMP, #### [facility] ([id number]) [address] [place] [address] Hemoglobin (Bld) [Mass/Vol] 7.6 g/dL Low 11.7-15.5 [facility] Comment on above: Performed By: #### Renita HENSON, CMP, #### [facility] ([id number]) [address] [place] [address] MCH (RBC) [Entitic mass] 27.8 pg Normal 27-34 [facility] Comment on above: Performed By: #### Renita HENSON, CMP, #### [facility] ([id number]) [address] [place] [address] MCHC (RBC) [Mass/Vol] 33.0 g/dL Normal 32-36 [facility] Comment on above: Performed By: #### Renita HENSON, CMP, #### [facility] ([id number]) [address] [place] [address] MCV (RBC) [Entitic vol] 84 fL Normal 80-100 [facility] Comment on above: Performed By: #### Renita HENSON, CMP, #### [facility] ([id number]) [address] [place] [address] Platelet mean volume (Bld) [Entitic vol] 8.3 fL Normal 7-12 [facility] Comment on above: Performed By: #### Renita HENSON, CMP, #### [facility] ([id number]) [address] [place] [address] Platelets (Bld) [#/Vol] 181 10*3/uL Normal 150-450 [facility] Comment on above: Performed By: #### C BCA, CMP, 77000-2 #### [facility] ([id number]) [address] [place] [address] RBC COUNT 2.72 X10E12/L Low 3.8-5.2 [facility] Comment on above: Performed By: #### C BCA, CMP, #### [facility] ([id number]) [address] [place] [address] WBC (Bld) [#/Vol] 9.0 10*3/uL Normal 4-11 [facility] Comment on above: Performed By: #### C BCA, CMP, 65834-9 #### [facility] ([id number]) [address] [place] [address] COMPREHENSIVE METABOLIC PANE Dickson 07-16-2025 Albumin [Mass/Vol] 3.1 g/dL Low 3.2-5.3 [facility] Comment on above: Performed By: #### C BCA, CMP, #### [facility] ([id number]) [address] [place] [address] ALP [Catalytic activity/Vol] 111 U/L Normal 39-130 [facility] Comment on above: Performed By: #### C BCA, CMP, #### [facility] ([id number]) [address] [place] [address] ALT [Catalytic activity/Vol] U/L Normal <=31 [facility] Comment on above: Performed By: #### C BCA, CMP, #### [facility] ([id number]) [address], [address] [place] [address] Anion gap [Moles/Vol] 7 mmol/L Normal 5-15 [facility] Comment on above: Performed By: #### C BCA, CMP, #### [facility] ([id number]) [address], [address] [place] [address] AST [Catalytic activity/Vol] 18 U/L Normal <=41 [facility] Comment on above: Performed By: #### C BCA, CMP, #### [facility] ([id number]) [address], [address] [place] [address] Bilirubin [Mass/Vol] 0.4 mg/dL Normal 0.3-1.2 [facility] Comment on above: Performed By: #### C BCA, CMP, #### [facility] ([id number]) [address], [address] [place] [address] Calcium [Mass/Vol] 8.9 mg/dL Normal 8.5-10.5 [facility] Comment on above: Performed By: #### C BCA, CMP, #### [facility] ([id number]) [address], [address] [place] [address] Chloride [Moles/Vol] 107 mmol/L Normal 98-109 [facility] Comment on above: Performed By: #### C BCA, CMP, #### [facility] ([id number]) [address], [address] [place] [address] CO2 [Moles/Vol] 26 mmol/L Normal 22-32 [facility] Comment on above: Performed By: #### C BCA, CMP, #### [facility] ([id number]) [address], [address] [place] [address] Creatinine [Mass/Vol] 1.51 mg/dL High 0.40-1.00 [facility] Comment on above: Result Comment: METH OD TRACEABLE TO IDMS STANDARD Performed By: #### C BCA, CMP, #### [facility] ([id number]) [address], [address] [place] [address] GFR/1.73 sq M.predicted among non-blacks MDRD (S/P/Bld) [Vol rate/Area] 35 mL/min/{1.73_m2} Low >=60 [facility] Comment on above: Result Comment: Repo rted eGFR is based on the CKD-EPI 2020 equation that does not use a race coefficient. Performed By: #### C RUBEN HENSON, 90702-2 #### [facility] ([id number]) [address], [address] [place] [address] Glucose [Mass/Vol] 82 mg/dL Normal 65-99 [facility] Comment on above: Performed By: #### C [facility]IV[facility]AD [place], 80259-5 #### [facility] ([id number]) [address] [place] [address] Potassium [Moles/Vol] 4.7 mmol/L Normal 3.5-5.0 [facility] Comment on above: Performed By: #### C [facility] [place], 41609-3 #### [facility] ([id number]) [address] [place] [address] Protein [Mass/Vol] 6.1 g/dL Normal 6.0-8.0 [facility] Comment on above: Performed By: #### Renita HENSON [place] [facility], 95121-6 #### [facility] ([id number]) [address] [place] [address] Sodium [Moles/Vol] 140 mmol/L Normal 134-146 [facility] Comment on above: Performed By: #### C [facility] [place] [facility], 98986-8 #### [facility] ([id number]) [address] [place] [address] Urea nitrogen [Mass/Vol] 31 mg/dL High 5-27 [facility] Comment on above: Performed By: #### C NATIVIDAD CMP, 88728-2 #### [facility] ([id number]) [address] [place] [address] LACTATE W/ REFLEXon 07-16-20 25 LACTATE W/REFLEX 1.0 mmol/L Normal 0.4-2.0 [facility] Comment on above: Order Comment: Resul t did not trigger repeat Lactate,re-order if needed. Performed By: #### Renita HENSON CMP, #### [facility] ([id number]) [address] [place] [address] MAGNESIUMon 07-16-2025 Magnesium [Mass/Vol] 2.0 mg/dL Normal 1.8-2.6 [facility] Comment on above: Performed By: #### Renita HENSON CMP, 89417-6 #### [facility] ([id number]) [address] [place] [address] BEDSIDE GLUCOSEon 07-15-2025 Glucose [Mass/Vol] 223 mg/dL High 65-99 [facility] Comment on above: Performed By: #### Renita HENSON CMP, 80149-4 #### [facility] ([id number]) [address] [place] [address] Glucose [Mass/Vol] 246 mg/dL High 65-99 [facility] Comment on above: Performed By: #### Renita HENSON CMP, 69596-2 #### [facility] ([id number]) [address], [address] [place] [address] Glucose [Mass/Vol] 198 mg/dL High 65-99 [facility] Comment on above: Performed By: #### Renita HENSON CMP, 52275-3 #### [facility] ([id number]) [address] [place] [address] Glucose [Mass/Vol] 135 mg/dL High 65-99 [facility] Comment on above: Performed By: #### C NATIVIDAD, CMP, #### [facility] ([id number]) [address], [address] [place] [address] CBC WITH AUTO DIFFERENTIALon 07-15-2025 BASOPHILS ABSOLUTE COUNT (10*3/UL) BY AUTOMATED COUNT 0.0 10*3/uL Normal 0.0-0.2 [facility] Comment on above: Performed By: #### C NATIVIDAD, CMP, #### [facility] ([id number]) [address] [place] [address] BASOPHILS RELATIVE PERCENT BY AUTOMATED COUNT 0.3 % Normal [facility] Comment on above: Performed By: #### Renita HENSON, CMP, #### [facility] ([id number]) [address] [place] [address] CELLAVISION DIFFERENTIAL TYPE AUTOMATED DIFFERENTIAL Normal [facility] Comment on above: Performed By: #### C NATIVIDAD, CMP, #### [facility] ([id number]) [address] [place] [address] Eosinophils (Bld) [#/Vol] 0.2 10*3/uL Normal 0.0-0.4 [facility] Comment on above: Performed By: #### Renita HENSON, CMP, #### [facility] ([id number]) [address] [place] [address] EOSINOPHILS RELATIVE PERCENT BY AUTOMATED COUNT 2.0 % Normal [facility] Comment on above: Performed By: #### C NATIVIDAD, CMP, #### [facility] ([id number]) [address], [address] [place] [address] Erythrocyte distribution width (RBC) [Ratio] 17.4 % High 11.5-15 [facility] Comment on above: Performed By: #### C NATIVIDAD, CMP, #### [facility] ([id number]) [address], [facility] [address] [place] [address] Hematocrit (Bld) [Volume fraction] 22.1 % Low 35-47 [facility] Comment on above: Performed By: #### C BCA, CMP, #### [facility] ([id number]) [address], [facility] [address] [place] [address] Hemoglobin (Bld) [Mass/Vol] 7.3 g/dL Low 11.7-15.5 [facility] Comment on above: Performed By: #### C NATIVIDAD, CMP, #### [facility] ([id number]) [address], [facility] [address] [place] [address] LYMPHOCYTES ABSOLUTE COUNT (10*3/UL) BY AUTOMATED COUNT 1.6 10*3/uL Normal 1.0-3.5 [facility] Comment on above: Performed By: #### Renita BCA, CMP, #### [facility] ([id number]) [address], [facility] [address] [place] [address] LYMPHOCYTES RELATIVE PERCENT BY AUTOMATED COUNT 20.5 % Normal [facility] Comment on above: Performed By: #### Renita BCA, CMP, #### [facility] ([id number]) [address], [facility] [address] [place] [address] MCH (RBC) [Entitic mass] 27.6 pg Normal 27-34 [facility] Comment on above: Performed By: #### C BCA, CMP, #### [facility] ([id number]) [address] [address] [place] [address] MCHC (RBC) [Mass/Vol] 32.9 g/dL Normal 32-36 [facility] Comment on above: Performed By: #### C BCA, CMP, #### [facility] ([id number]) [address], [address] [place] [address] MCV (RBC) [Entitic vol] 84 fL Normal 80-100 [facility] Comment on above: Performed By: #### C NATIVIDAD, [place] [facility], #### [facility] ([id number]) [address], [facility] [address] [place] [address] MONOCYTES ABSOLUTE COUNT (10*3/UL) BY AUTOMATED COUNT 0.9 10*3/uL Normal 0.0-0.9 [facility] Comment on above: Performed By: #### Renita HENSON, CMP, #### [facility] ([id number]) [address], [facility] [address] [place] [address] MONOCYTES RELATIVE PERCENT BY AUTOMATED COUNT 11.1 % Normal [facility] Comment on above: Performed By: #### Renita HENSON, CMP, #### [facility] ([id number]) [address] [address] [place] [address] NEUTROPHILS ABSOLUTE COUNT BY AUTOMATED COUNT 5.2 10*3/uL Normal 1.5-6.6 [facility] Comment on above: Performed By: #### Renita HENSON, [place] [facility], #### [facility] ([id number]) [address] [address] [place] [address] NEUTROPHILS RELATIVE PERCENT BY AUTOMATED COUNT 66.1 % Normal [facility] Comment on above: Performed By: #### Renita HENSON, CMP, #### [facility] ([id number]) [address] [address] [place] [address] Platelet mean volume (Bld) [Entitic vol] 8.1 fL Normal 7-12 [facility] Comment on above: Performed By: #### Renita HENSON, CMP, #### [facility] ([id number]) [address], [facility] [address] [place] [address] Platelets (Bld) [#/Vol] 168 10*3/uL Normal 150-450 [facility] Comment on above: Performed By: #### C NATIVIDAD, CMP, 60613-9 #### [facility] ([id number]) [address], [address] [place] [address] RBC COUNT 2.63 X10E12/L Low 3.8-5.2 [facility] Comment on above: Performed By: #### C BCA, CMP, #### [facility] ([id number]) [address], [address] [place] [address] WBC (Bld) [#/Vol] 7.8 10*3/uL Normal 4-11 [facility] Comment on above: Performed By: #### C NATIVIDAD CMP, 02854-4 #### [facility] ([id number]) [address], [address] [place] [address] COMPREHENSIVE METABOLIC PANE Dickson 07-15-2025 Albumin [Mass/Vol] 3.0 g/dL Low 3.2-5.3 [facility] Comment on above: Performed By: #### C NATIVIDAD, CMP, 41631-0 #### [facility] ([id number]) [address], [address] [place] [address] ALP [Catalytic activity/Vol] 104 U/L Normal 39-130 [facility] Comment on above: Performed By: #### C BCA, CMP, 80260-8 #### [facility] ([id number]) [address], [address] [place] [address] ALT [Catalytic activity/Vol] U/L Normal <=31 [facility] Comment on above: Performed By: #### C BCA, CMP, 81715-2 #### [facility] ([id number]) [address], [address] [place] [address] Anion gap [Moles/Vol] 6 mmol/L Normal 5-15 [facility] Comment on above: Performed By: #### C BCA, CMP, #### [facility] ([id number]) [address], [address] [place] [address] AST [Catalytic activity/Vol] 18 U/L Normal <=41 [facility] Comment on above: Performed By: #### C BCA, CMP, #### [facility] ([id number]) [address], [address] [place] [address] Bilirubin [Mass/Vol] 0.3 mg/dL Normal 0.3-1.2 [facility] Comment on above: Performed By: #### C BCA, CMP, #### [facility] ([id number]) [address] [place] [address] Calcium [Mass/Vol] 8.3 mg/dL Low 8.5-10.5 [facility] Comment on above: Performed By: #### C BCA, CMP, #### [facility] ([id number]) [address] [place] [address] Chloride [Moles/Vol] 105 mmol/L Normal 98-109 [facility] Comment on above: Performed By: #### C BCA, CMP, #### [facility] ([id number]) [address] [place] [address] CO2 [Moles/Vol] 28 mmol/L Normal 22-32 [facility] Comment on above: Performed By: #### C BCA, CMP, #### [facility] ([id number]) [address], [address] [place] [address] Creatinine [Mass/Vol] 1.91 mg/dL High 0.40-1.00 [facility] Comment on above: Result Comment: METH OD TRACEABLE TO IDMS STANDARD Performed By: #### C BCA, CMP, #### [facility] ([id number]) [address], [address] [place] [address] GFR/1.73 sq M.predicted among non-blacks MDRD (S/P/Bld) [Vol rate/Area] 26 mL/min/{1.73_m2} Low >=60 [facility] Comment on above: Result Comment: Repo rted eGFR is based on the CKD-EPI 2020 equation that does not use a race coefficient. Performed By: #### C RUBEN HENSON, #### [facility] ([id number]) [address], [address] [place] [address] Glucose [Mass/Vol] 134 mg/dL High 65-99 [facility] Comment on above: Performed By: #### C RUBEN HENSON, 41466-4 #### [facility] ([id number]) [address], [address] [place] [address] Potassium [Moles/Vol] 4.4 mmol/L Normal 3.5-5.0 [facility] Comment on above: Performed By: #### C RUBEN HENSON, 34450-3 #### [facility] ([id number]) [address], [address] [place] [address] Protein [Mass/Vol] 5.8 g/dL Low 6.0-8.0 [facility] Comment on above: Performed By: #### C RUBEN HENSON, 86102-8 #### [facility] ([id number]) [address], [address] [place] [address] Sodium [Moles/Vol] 139 mmol/L Normal 134-146 [facility] Comment on above: Performed By: #### C RUBEN HENSON, 87698-0 #### [facility] ([id number]) [address], [address] [place] [address] Urea nitrogen [Mass/Vol] 35 mg/dL High 5-27 [facility] Comment on above: Performed By: #### Renita HENSON CMP, 07553-8 #### [facility] ([id number]) [address], [address] [place] [address] MAGNESIUMon 07-15-2025 Magnesium [Mass/Vol] 2.0 mg/dL Normal 1.8-2.6 [facility] Comment on above: Performed By: #### Renita HENSON CMP, #### [facility] ([id number]) [address], [address] [place] [address] MICROALBUMIN / CREATININE UR INE RATIOon 07-15-2025 Albumin DL <= 20 mg/L (U) [Mass/Vol] 12.4 mg/dL High 0.0-1.9 [facility] Comment on above: Performed By: #### Renita HENSON CMP, #### [facility] ([id number]) [address] [place] [address] MALB/CREAT RATIO 141.9 mg/g High 0.0-30.0 [facility] Comment on above: Performed By: #### Renita HENSON CMP, 11715-4 #### [facility] ([id number]) [address], [address] [place] [address] URINE CREATININE,RDM 87.37 mg/dL Normal [facility] Comment on above: Performed By: #### Renita HENSON CMP, #### [facility] ([id number]) [address], [address] [place] [address] MRSA PCR NASAL SWABon 2024 MRSA PCR NASAL SWAB Negative Normal Negative [facility] Comment on above: Performed By: #### Renita HENSON CMP, 68886-0 #### [facility] ([id number]) [address], [address] [place] [address] SODIUM, URINE, RANDOMon 06-17 Sodium (U) [Moles/Vol] 33 mmol/L Normal [facility] Comment on above: Performed By: #### Renita HENSON CMP, #### [facility] ([id number]) [address], [address] [place] [address] URINALYSISon 07-15-2025 Bilirubin Ql (U) Negative Normal Negative [facility] Comment on above: Performed By: #### Renita HENSON CMP, #### [facility] ([id number]) [address], [address] [place] [address] BLOOD/HGB Moderate Abnormal Negative [facility] Comment on above: Performed By: #### Renita HENSON CMP, #### [facility] ([id number]) [address] [place] [address] Color (U) Yellow Normal Yellow [facility] Comment on above: Performed By: #### Renita HENSON, [place], #### [facility] ([id number]) [address] [place] [address] Glucose Ql (U) Negative Normal Negative [facility] Comment on above: Performed By: #### Renita HENSON, CMP, #### [facility] ([id number]) [address] [place] [address] Ketones Ql (U) Negative Normal Negative [facility] Comment on above: Performed By: #### Renita HENSON, CMP, #### [facility] ([id number]) [address] [place] [address] Leukocyte esterase Test strip Ql (U) Large Abnormal Negative [facility] Comment on above: Performed By: #### Renita HENSON, CMP, #### [facility] ([id number]) [address] [place] [address] Nitrite Ql (U) Negative Normal Negative [facility] Comment on above: Performed By: #### C NATIVIDAD, CMP, #### [facility] ([id number]) [address] [place] [address] PH,URINE 6.0 Normal 5.0-8.5 [facility] Comment on above: Performed By: #### C BCA, CMP, #### [facility] ([id number]) [address] [place] [address] Protein Ql (U) 70 mg/dL Abnormal Negative [facility] Comment on above: Performed By: #### Renita HENSON, CMP, #### [facility] ([id number]) [address] [place] [address] R.B.CELLS 47 High 0-5 [facility] Comment on above: Performed By: #### Renita BCA, CMP, #### [facility] ([id number]) [address] [place] [address] Specific gravity (U) [Rel density] 1.017 Normal 1.003-1.03 5 [facility] Comment on above: Performed By: #### C BCA, CMP, #### [facility] ([id number]) [address] [place] [address] SQUAMOUS EPITHELIUM >^27 High 0-5 [facility] Comment on above: Performed By: #### C BCA, CMP, #### [facility] ([id number]) [address] [place] [address] TRANSITIONAL EPITH 1 High <=0 [facility] Comment on above: Performed By: #### C BCA, CMP, #### [facility] ([id number]) [address] [place] [address] TURBIDITY Cloudy Abnormal Clear [facility] Comment on above: Performed By: #### Renita HENSON CMP, #### [facility] ([id number]) [address] [place] [address] UROBILINOGEN <1.1 eu/dL Normal <1.1 eu/dL [facility] Comment on above: Performed By: #### Renita HENSON CMP, #### [facility] ([id number]) [address] [place] [address] W.B.CELLS 604 High 0-5 [facility] Comment on above: Performed By: #### Renita HENSON CMP, #### [facility] ([id number]) [address] [place] [address] WBC CLUMPS Few Abnormal None [facility] Comment on above: Performed By: #### Renita HENSON CMP, #### [facility] ([id number]) [address] [place] [address] URINE CREATININE,RANDOMon URINE CREATININE,RDM 87.00 mg/dL Normal [facility] Comment on above: Performed By: #### Renita HENSON CMP, #### [facility] ([id number]) [address] [place] [address] URINE CULTUREon 07-15-2025 Bacteria identified Cx Nom (U) CULTURE RESULTS 10-50,000 ORGANISMS/mL NORMAL UROGENITAL BAILEY Normal [facility] Comment on above: Performed By: #### Renita HENSON CMP, #### [facility] ([id number]) [address] [place] [address] APTTon 07-14-2025 APTT PTT APTT Cancelled Normal [facility] Comment on above: Order Comment: Erin Sheffield RN at 1646 B-TYPE NATRIURETIC PEPTIDEon 07-14-2025 B-TYPE NATRIURETIC PEPTIDE BNP B-TYPE NATRIURETIC PEPTIDE Cancelled Normal [facility] Comment on above: Order Comment: BNP O UT OF STABILITY, TUBE NEVER RECEIVED IN CHEMISTRY BEDSIDE GLUCOSEon 07-14-2025 Glucose [Mass/Vol] 328 mg/dL High [address] [place] [address] Comment on above: Performed By: #### C BCA, CMP, 12725-6 #### [facility] ([id number]) [address] [place] [address] Glucose [Mass/Vol] 347 mg/dL High [address] [place] [address] Comment on above: Performed By: #### C BCA, CMP, 53166-4 #### [facility] ([id number]) [address] [place] [address] Glucose [Mass/Vol] 244 mg/dL High [address] [place] [address] Comment on above: Performed By: #### C BCA, CMP, 63356-2 #### [facility] ([id number]) [address] [place] [address] Glucose [Mass/Vol] 223 mg/dL High [address] [place] [address] Comment on above: Performed By: #### C BCA, CMP, 95193-1 #### [facility] ([id number]) [address] [place] [address] BLOOD CULTUREon 07-14-2025 Bacteria identified Cx Nom (Bld) CULTURE RESULTS NO GROWTH 5 DAYS Normal [facility] Comment on above: Order Comment: *SIRS Criteria: [...] source who are improving Performed By: #### Renita HENSON [place], 29765-8 #### [facility] ([id number]) [address] [place] [address] Order Comment: *SIRS Criteria: (must display 2 [...] urinary source who are improvingOnly aerobic bottle received, suboptimal volume of blood collected, results may be affected. CBC WITH AUTO DIFFERENTIALon 07-14-2025 BASOPHILS ABSOLUTE COUNT (10*3/UL) BY AUTOMATED COUNT 0.0 10*3/uL Normal 0.0-0.2 [facility] Comment on above: Performed By: #### Renita HENSON [place] [facility], #### [facility] ([id number]) [address] [place] [address] BASOPHILS RELATIVE PERCENT BY AUTOMATED COUNT 0.2 % Normal [facility] Comment on above: Performed By: #### Renita HENSON [place], 28158-3 #### [facility] ([id number]) [address] [place] [address] CELLAVISION DIFFERENTIAL TYPE AUTOMATED DIFFERENTIAL Normal [facility] Comment on above: Performed By: #### Renita HENSON [place], 24722-2 #### [facility] ([id number]) [address] [place] [address] Eosinophils (Bld) [#/Vol] 0.0 10*3/uL Normal 0.0-0.4 [facility] Comment on above: Performed By: #### Renita HENSON CMP, 81459-2 #### [facility] ([id number]) [address] [place] [address] EOSINOPHILS RELATIVE PERCENT BY AUTOMATED COUNT 0.1 % Normal [facility] Comment on above: Performed By: #### Renita HENSON CMP, #### [facility] ([id number]) [address] [place] [address] Erythrocyte distribution width (RBC) [Ratio] 18.2 % High 11.5-15 [facility] Comment on above: Performed By: #### Renita HENSON CMP, #### [facility] ([id number]) [address] [facility] [address] [place] [address] Hematocrit (Bld) [Volume fraction] 20.1 % Low 35-47 [facility] Comment on above: Performed By: #### Renita HENSON CMP, #### [facility] ([id number]) [address] [facility] [address] [place] [address] Hemoglobin (Bld) [Mass/Vol] 6.4 g/dL Critically low 11.7-15.5 [facility] Comment on above: Performed By: #### Renita HENSON CMP, #### [facility] ([id number]) [address] [place] [address] LYMPHOCYTES ABSOLUTE COUNT (10*3/UL) BY AUTOMATED COUNT 1.4 10*3/uL Normal 1.0-3.5 [facility] Comment on above: Performed By: #### Renita HENSON CMP, #### [facility] ([id number]) [address] [place] [address] LYMPHOCYTES RELATIVE PERCENT BY AUTOMATED COUNT 17.2 % Normal [facility] Comment on above: Performed By: #### Renita HENSON CMP, #### [facility] ([id number]) [address], [address] [place] [address] MCH (RBC) [Entitic mass] 26.7 pg Low 27-34 [facility] Comment on above: Performed By: #### C BCA, CMP, #### [facility] ([id number]) [address], [address] [place] [address] MCHC (RBC) [Mass/Vol] 32.0 g/dL Normal 32-36 [facility] Comment on above: Performed By: #### C BCA, CMP, #### [facility] ([id number]) [address] [place] [address] MCV (RBC) [Entitic vol] 83 fL Normal 80-100 [facility] Comment on above: Performed By: #### C BCA, CMP, #### [facility] ([id number]) [address] [place] [address] MONOCYTES ABSOLUTE COUNT (10*3/UL) BY AUTOMATED COUNT 0.9 10*3/uL Normal 0.0-0.9 [facility] Comment on above: Performed By: #### C BCA, CMP, #### [facility] ([id number]) [address] [place] [address] MONOCYTES RELATIVE PERCENT BY AUTOMATED COUNT 10.6 % Normal [facility] Comment on above: Performed By: #### C BCA, CMP, #### [facility] ([id number]) [address] [place] [address] NEUTROPHILS ABSOLUTE COUNT BY AUTOMATED COUNT 5.9 10*3/uL Normal 1.5-6.6 [facility] Comment on above: Performed By: #### C BCA, CMP, #### [facility] ([id number]) [address] [place] [address] NEUTROPHILS RELATIVE PERCENT BY AUTOMATED COUNT 71.9 % Normal [facility] Comment on above: Performed By: #### C BCA, CMP, #### [facility] ([id number]) [address] [place] [address] Platelet mean volume (Bld) [Entitic vol] 8.4 fL Normal 7-12 [facility] Comment on above: Performed By: #### C BCA, CMP, #### [facility] ([id number]) [address] [place] [address] Platelets (Bld) [#/Vol] 172 10*3/uL Normal 150-450 [facility] Comment on above: Performed By: #### Renita BCA, CMP, #### [facility] ([id number]) [address], [address] [place] [address] RBC COUNT 2.42 X10E12/L Low 3.8-5.2 [facility] Comment on above: Performed By: #### Renita BCA, CMP, #### [facility] ([id number]) [address] [place] [address] WBC (Bld) [#/Vol] 8.2 10*3/uL Normal 4-11 [facility] Comment on above: Performed By: #### Renita BCA, CMP, #### [facility] ([id number]) [address] [place] [address] BASOPHILS ABSOLUTE COUNT (10*3/UL) BY AUTOMATED COUNT 0.0 10*3/uL Normal 0.0-0.2 [facility] Comment on above: Performed By: #### C BCA, CMP, #### [facility] ([id number]) [address] [place] [address] BASOPHILS RELATIVE PERCENT BY AUTOMATED COUNT 0.1 % Normal [facility] Comment on above: Performed By: #### Renita BCA, CMP, #### [facility] ([id number]) [address] [place] [address] CELLAVISION DIFFERENTIAL TYPE AUTOMATED DIFFERENTIAL Normal [facility] Comment on above: Performed By: #### Renita HENSON CMP, #### [facility] ([id number]) [address] [place] [address] Eosinophils (Bld) [#/Vol] 0.0 10*3/uL Normal 0.0-0.4 [facility] Comment on above: Performed By: #### Renita HENSON CMP, #### [facility] ([id number]) [address], [facility] [address] [place] [address] EOSINOPHILS RELATIVE PERCENT BY AUTOMATED COUNT 0.0 % Normal [facility] Comment on above: Performed By: #### Renita HENSON CMP, #### [facility] ([id number]) [address], [facility] [address] [place] [address] Erythrocyte distribution width (RBC) [Ratio] 17.8 % High 11.5-15 [facility] Comment on above: Performed By: #### Renita HENSON CMP, #### [facility] ([id number]) [address] [address] [place] [address] Hematocrit (Bld) [Volume fraction] 22.3 % Low 35-47 [facility] Comment on above: Performed By: #### Renita HENSON CMP, #### [facility] ([id number]) [address] [address] [place] [address] Hemoglobin (Bld) [Mass/Vol] 7.5 g/dL Low 11.7-15.5 [facility] Comment on above: Performed By: #### Renita HENSON CMP, #### [facility] ([id number]) [address] [place] [address] LYMPHOCYTES ABSOLUTE COUNT (10*3/UL) BY AUTOMATED COUNT 1.2 10*3/uL Normal 1.0-3.5 [facility] Comment on above: Performed By: #### C RUBEN HENSON, #### [facility] ([id number]) [address], [address] [place] [address] LYMPHOCYTES RELATIVE PERCENT BY AUTOMATED COUNT 14.3 % Normal [facility] Comment on above: Performed By: #### Renita HENSON CMP, #### [facility] ([id number]) [address] [place] [address] MCH (RBC) [Entitic mass] 27.1 pg Normal 27-34 [facility] Comment on above: Performed By: #### C RUBEN HESNON, #### [facility] ([id number]) [address] [place] [address] MCHC (RBC) [Mass/Vol] 33.4 g/dL Normal 32-36 [facility] Comment on above: Performed By: #### Renita HENSON CMP, #### [facility] ([id number]) [address] [place] [address] MCV (RBC) [Entitic vol] 81 fL Normal 80-100 [facility] Comment on above: Performed By: #### Renita HENSON CMP, #### [facility] ([id number]) [address] [place] [address] MONOCYTES ABSOLUTE COUNT (10*3/UL) BY AUTOMATED COUNT 1.0 10*3/uL High 0.0-0.9 [facility] Comment on above: Performed By: #### C RUBEN HENSON, #### [facility] ([id number]) [address], [address] [place] [address] MONOCYTES RELATIVE PERCENT BY AUTOMATED COUNT 11.6 % Normal [facility] Comment on above: Performed By: #### C BCA, CMP, #### [facility] ([id number]) [address] [place] [address] NEUTROPHILS ABSOLUTE COUNT BY AUTOMATED COUNT 6.4 10*3/uL Normal 1.5-6.6 [facility] Comment on above: Performed By: #### C BCA, CMP, #### [facility] ([id number]) [address] [place] [address] NEUTROPHILS RELATIVE PERCENT BY AUTOMATED COUNT 74.0 % Normal [facility] Comment on above: Performed By: #### Renita HENSON, CMP, #### [facility] ([id number]) [address], [address] [place] [address] Platelet mean volume (Bld) [Entitic vol] 8.3 fL Normal 7-12 [facility] Comment on above: Performed By: #### Renita BCA, CMP, #### [facility] ([id number]) [address] [place] [address] Platelets (Bld) [#/Vol] 167 10*3/uL Normal 150-450 [facility] Comment on above: Performed By: #### Renita HENSON, CMP, #### [facility] ([id number]) [address] [place] [address] RBC COUNT 2.75 X10E12/L Low 3.8-5.2 [facility] Comment on above: Performed By: #### C BCA, CMP, #### [facility] ([id number]) [address] [place] [address] WBC (Bld) [#/Vol] 8.6 10*3/uL Normal 4-11 [facility] Comment on above: Performed By: #### Renita BCA, CMP, #### [facility] ([id number]) [address] [place] [address] COMPREHENSIVE METABOLIC PANE Dickson 07-14-2025 Albumin [Mass/Vol] 3.0 g/dL Low 3.2-5.3 [facility] Comment on above: Performed By: #### C BCA, CMP, 49481-0 #### [facility] ([id number]) [address] [place] [address] ALP [Catalytic activity/Vol] 112 U/L Normal 39-130 [facility] Comment on above: Performed By: #### C BCA, CMP, #### [facility] ([id number]) [address], [address] [place] [address] ALT [Catalytic activity/Vol] U/L Normal <=31 [facility] Comment on above: Performed By: #### C BCA, CMP, #### [facility] ([id number]) [address], [address] [place] [address] Anion gap [Moles/Vol] 12 mmol/L Normal 5-15 [facility] Comment on above: Performed By: #### C BCA, CMP, #### [facility] ([id number]) [address], [address] [place] [address] AST [Catalytic activity/Vol] 23 U/L Normal <=41 [facility] Comment on above: Performed By: #### C BCA, CMP, #### [facility] ([id number]) [address], [address] [place] [address] Bilirubin [Mass/Vol] 0.2 mg/dL Low 0.3-1.2 [facility] Comment on above: Performed By: #### C BCA, CMP, 49340-3 #### [facility] ([id number]) [address], [address] [place] [address] Calcium [Mass/Vol] 8.1 mg/dL Low 8.5-10.5 [facility] Comment on above: Performed By: #### C RUBEN HENSON, 43163-7 #### [facility] ([id number]) [address], [address] [place] [address] Chloride [Moles/Vol] 101 mmol/L Normal 98-109 [facility] Comment on above: Performed By: #### C RUBEN HENSON, #### [facility] ([id number]) [address], [address] [place] [address] CO2 [Moles/Vol] 22 mmol/L Normal 22-32 [facility] Comment on above: Performed By: #### C RUBEN HENSON, #### [facility] ([id number]) [address], [address] [place] [address] Creatinine [Mass/Vol] 2.40 mg/dL High 0.40-1.00 [facility] Comment on above: Result Comment: METH OD TRACEABLE TO IDMS STANDARD Performed By: #### C RUBEN HENSON, 47318-6 #### [facility] ([id number]) [address], [address] [place] [address] GFR/1.73 sq M.predicted among non-blacks MDRD (S/P/Bld) [Vol rate/Area] 20 mL/min/{1.73_m2} Low >=60 [facility] Comment on above: Result Comment: Repo rted eGFR is based on the CKD-EPI 2020 equation that does not use a race coefficient. Performed By: #### C RUBEN HENSON, #### [facility] ([id number]) [address], [address] [place] [address] Glucose [Mass/Vol] 294 mg/dL High 65-99 [facility] Comment on above: Performed By: #### C RUBEN HENSON, #### [facility] ([id number]) [address], [address] [place] [address] Potassium [Moles/Vol] 4.8 mmol/L Normal 3.5-5.0 [facility] Comment on above: Performed By: #### C BCA, CMP, #### [facility] ([id number]) [address] [place] [address] Protein [Mass/Vol] 6.2 g/dL Normal 6.0-8.0 [facility] Comment on above: Performed By: #### C NATIVIDAD, CMP, #### [facility] ([id number]) [address] [place] [address] Sodium [Moles/Vol] 135 mmol/L Normal 134-146 [facility] Comment on above: Performed By: #### Renita BCA, [place], #### [facility] ([id number]) [address] [place] [address] Urea nitrogen [Mass/Vol] 39 mg/dL High 5-27 [facility] Comment on above: Performed By: #### C BCA, [place], #### [facility] ([id number]) [address] [place] [address] Albumin [Mass/Vol] 3.2 g/dL Normal 3.2-5.3 [facility] Comment on above: Performed By: #### C BCA, CMP, #### [facility] ([id number]) [address], [address] [place] [address] ALP [Catalytic activity/Vol] 116 U/L Normal 39-130 [facility] Comment on above: Performed By: #### C BCA, CMP, #### [facility] ([id number]) [address], [address] [place] [address] ALT [Catalytic activity/Vol] 7 U/L Normal <=31 [facility] Comment on above: Performed By: #### Renita HENSON CMP, #### [facility] ([id number]) [address] [place] [address] Anion gap [Moles/Vol] 11 mmol/L Normal 5-15 [facility] Comment on above: Performed By: #### Renita HENSON CMP, #### [facility] ([id number]) [address], [address] [place] [address] AST [Catalytic activity/Vol] 28 U/L Normal <=41 [facility] Comment on above: Performed By: #### Renita HENSON CMP, #### [facility] ([id number]) [address], [address] [place] [address] Bilirubin [Mass/Vol] 0.3 mg/dL Normal 0.3-1.2 [facility] Comment on above: Performed By: #### Renita HENSON CMP, #### [facility] ([id number]) [address] [place] [address] Calcium [Mass/Vol] 8.8 mg/dL Normal 8.5-10.5 [facility] Comment on above: Performed By: #### Renita HENSON CMP, #### [facility] ([id number]) [address], [address] [place] [address] Chloride [Moles/Vol] 96 mmol/L Low 98-109 [facility] Comment on above: Performed By: #### eRnita HENSON CMP, #### [facility] ([id number]) [address] [place] [address] CO2 [Moles/Vol] 30 mmol/L Normal 22-32 [facility] Comment on above: Performed By: #### C NATIVIDAD [facility], #### [facility] ([id number]) [address] [address] [place] [address] Creatinine [Mass/Vol] 2.29 mg/dL High 0.40-1.00 [facility] Comment on above: Result Comment: METH OD TRACEABLE TO IDMS STANDARD Performed By: #### C RUBEN HENSON, #### [facility] ([id number]) [address] [facility] [address] [place] [address] GFR/1.73 sq M.predicted among non-blacks MDRD (S/P/Bld) [Vol rate/Area] 21 mL/min/{1.73_m2} Low >=60 [facility] Comment on above: Result Comment: Repo rted eGFR is based on the CKD-EPI 2020 equation that does not use a race coefficient. Performed By: #### C NATIVIDAD [facility], #### [facility] ([id number]) [address] [address] [place] [address] Glucose [Mass/Vol] 198 mg/dL High 65-99 [facility] Comment on above: Performed By: #### C NATIVIDAD [place], 58415-3 #### [facility] ([id number]) [address] [address] [place] [address] Potassium [Moles/Vol] 5.0 mmol/L Normal 3.5-5.0 [facility] Comment on above: Performed By: #### C NATIVIDAD [place], 93103-0 #### [facility] ([id number]) [address] [address] [place] [address] Protein [Mass/Vol] 6.4 g/dL Normal 6.0-8.0 [facility] Comment on above: Performed By: #### C NATIVIDAD CMP, #### [facility] ([id number]) [address] [address] [place] [address] Sodium [Moles/Vol] 137 mmol/L Normal 134-146 [facility] Comment on above: Performed By: #### C NATIVIDAD, CMP, 21632-0 #### [facility] ([id number]) [address] [place] [address] Urea nitrogen [Mass/Vol] 37 mg/dL High 5-27 [facility] Comment on above: Performed By: #### C BCA, CMP, 85735-2 #### [facility] ([id number]) [address] [address] [place] [address] HEMOGLOBIN A1Con 07-14-2025 Glucose [Mass/Vol] 197 mg/dL Normal [facility] Comment on above: Performed By: #### Renita HENSON, CMP, 70155-5 #### [facility] ([id number]) [address] [place] [address] HbA1c (Bld) [Mass fraction] 8.5 % High 4.4-5.6 [facility] Comment on above: Result Comment: ADA Guidelines Result HgbA1c Normal : less than 5.7 % Prediabetes : 5.7 % to 6.4 % Diabetes : > 6.4 % Use with caution in patients with abnormal hemoglobin variants as the half-life of red blood cells and in vivo glycation rates are affected. Performed By: #### C BCA, CMP, 95864-6 #### [facility] ([id number]) [address] [place] [address] HEMOGLOBIN AND HEMATOCRIT, B LOODon 07-14-2025 Hematocrit (Bld) [Volume fraction] 22.9 % Low 35-47 [facility] Comment on above: Performed By: #### C BCA, CMP, 50175-0 #### [facility] ([id number]) [address] [place] [address] Hemoglobin (Bld) [Mass/Vol] 7.5 g/dL Low 11.7-15.5 [facility] Comment on above: Performed By: #### C RUBEN HENSON, #### [facility] ([id number]) [address] [place] [address] Hematocrit (Bld) [Volume fraction] 24.3 % Low 35-47 [facility] Comment on above: Performed By: #### C RUBEN HENSON, #### [facility] ([id number]) [address] [place] [address] Hemoglobin (Bld) [Mass/Vol] 8.0 g/dL Low 11.7-15.5 [facility] Comment on above: Performed By: #### C RUBEN HENSON, #### [facility] ([id number]) [address] [place] [address] LACTATEon 07-14-2025 Lactate [Moles/Vol] 2.7 mmol/L High 0.4-2.0 [facility] Comment on above: Performed By: #### Renita HENSON, CMP, #### [facility] ([id number]) [address] [place] [address] LACTATE W/ REFLEXon 07-14-20 25 LACTATE W/REFLEX 2.3 mmol/L High 0.4-2.0 [facility] Comment on above: Performed By: #### C NATIVIDAD, CMP, #### [facility] ([id number]) [address] [place] [address] LDHon 07-14-2025 LDH 225 U/L Normal 100-235 [facility] Comment on above: Performed By: #### Renita HENSON, CMP, #### [facility] ([id number]) [address] [place] [address] MAGNESIUMon 07-14-2025 Magnesium [Mass/Vol] 2.0 mg/dL Normal 1.8-2.6 [facility] Comment on above: Performed By: #### Renita HENSON [facility], 28605-4 #### [facility] ([id number]) [address] [place] [address] Magnesium [Mass/Vol] 2.2 mg/dL Normal 1.8-2.6 [facility] Comment on above: Performed By: #### Renita HENSON [facility], 45167-4 #### [facility] ([id number]) [address] [place] [address] PHOSPHORUSon 07-14-2025 Phosphate [Mass/Vol] 6.1 mg/dL High 2.4-4.9 [facility] Comment on above: Performed By: #### Renita HENSON CMP, 90020-4 #### [facility] ([id number]) [address] [place] [address] PROCALCITONINon 07-14-2025 PROCALCITONIN 0.34 ng/mL High <0.05 [facility] Comment on above: Order Comment: <0.50 ng/mL - Low risk of severe sepsis and/or septic shock.<2.00 ng/mL - Recommend retesting within 6-24 hours.>2.00 ng/mL - High risk of sepsis and/or septic shock. Performed By: #### Renita HENSON, [facility], 50705-9 #### [facility] ([id number]) [address] [place] [address] PROTIME AND INRon 07-14-2025 PROTIME AND INR PINR PROTIME & INR Cancelled Normal [facility] Comment on above: Order Comment: Erin Sheffield RN at 1646 RETICULOCYTESon 07-14-2025 RETICULOCYTE COUNT 1.6 % Normal 0.4-2.2 [facility] Comment on above: Performed By: #### Renita HENSON CMP, 33204-2 #### [facility] ([id number]) [address] [place] [address] XR CHEST 1 VWon 07-14-2025 XR CHEST 1 VW XR CHEST 1 VW CLINICAL HISTORY: Sepsis Comparison: 07/04/2025 Views: 1 view FINDINGS: * Mild basilar atelectasis. Otherwise lungs clear. Heart size stable. No pneumothorax. Old right rib fractures. IMPRESSION: * No active disease nor significant interval change Finalized by Jason Vanegas MD on 07/14/2025 3:44 PM Normal [facility] BEDSIDE GLUCOSEon 07-13-2025 Glucose [Mass/Vol] 364 mg/dL High 6599 [facility] Comment on above: Performed By: #### Renita HENSON CMP, 65757-8 #### [facility] ([id number]) [address] [place] [address] Glucose [Mass/Vol] 282 mg/dL High 6599 [facility] Comment on above: Performed By: #### Renita HENSON CMP, 83234-6 #### [facility] ([id number]) [address] [place] [address] Glucose [Mass/Vol] 330 mg/dL High [address] [place] [address] Comment on above: Performed By: #### Renita HENSON CMP, 15585-0 #### [facility] ([id number]) [address] [place] [address] Glucose [Mass/Vol] 173 mg/dL High 6599 [facility] Comment on above: Performed By: #### 2 0578-1 #### [facility] ([id number]) [address] [place] [address] CA 125on 07-13-2025 CA 125 157 U/mL High <=35 [facility] Comment on above: Result Comment: The method used for this test is Matheus Aldair DXI chemiluminescent immunoassay. Values obtained by different assay methods cannot be used interchangeably. Performed By: #### C BCA, CMP, 87781-5 #### [facility] ([id number]) [address] [place] [address], [address] [place] [address] CANCER ANTIGEN 15-3on 2024 CA 15 3 27.6 U/mL Normal <=31.3 [facility] Comment on above: Result Comment: The method used for this test is Mathe[employer] DXI chemiluminescent immunoassay. Values obtained by different assay methods cannot be used interchangeably. Performed By: #### C BCA, CMP, 08996-6 #### [facility] ([id number]) [address] [place] [address], [facility] [address] [place] [address] CANCER ANTIGEN 27.29on 07-13 CANCER ANTGN 27.29 118.5 U/mL High <=39.0 [facility] Comment on above: Result Comment: INTE RPRETIVE INFORMATION: Cancer Antigen 27.29 The CA 27.29 [...] for a diagnosis of malignancy. Methodology: [employer] IM BR 27.29 (BR) chemiluminescent immunoassay was used. Results obtained with different assay methods or kits cannot be used interchangeably. Performed By: [facility] [address] [place] [address] [facility]: Brendon Ruiz MD, PhD CLIA Number: [id number] Performed By: #### C BCA, CMP, 26836-4 #### [facility] ([id number]) [address] [place] [address], [address] [place] [address] CBC WITH AUTO DIFFERENTIALon 07-13-2025 BASOPHILS ABSOLUTE COUNT (10*3/UL) BY AUTOMATED COUNT 0.1 10*3/uL Normal 0.0-0.2 [facility] Comment on above: Performed By: #### 2 0578-1 #### [facility] ([id number]) [address] [facility] [address] [place] [address] BASOPHILS RELATIVE PERCENT BY AUTOMATED COUNT 0.7 % Normal [facility] Comment on above: Performed By: #### 2 0578-1 #### [facility] ([id number]) [address] [address] CELLAVISION DIFFERENTIAL TYPE AUTOMATED DIFFERENTIAL Normal [facility] Comment on above: Performed By: #### 2 0578-1 #### [facility] ([id number]) [address] [address] Eosinophils (Bld) [#/Vol] 0.4 10*3/uL Normal 0.0-0.4 [facility] Comment on above: Performed By: #### 2 0578-1 #### [facility] ([id number]) [address], [address] [address] EOSINOPHILS RELATIVE PERCENT BY AUTOMATED COUNT 5.0 % Normal [facility] Comment on above: Performed By: #### 2 0578-1 #### [facility] ([id number]) [address] [address] Erythrocyte distribution width (RBC) [Ratio] 17.9 % High 11.5-15 [facility] Comment on above: Performed By: #### 2 0578-1 #### [facility] ([id number]) [address] [address] [place] [address] Hematocrit (Bld) [Volume fraction] 29.8 % Low 35-47 [facility] Comment on above: Performed By: #### 2 0578-1 #### [facility] ([id number]) [address], [address] [place] [address] Hemoglobin (Bld) [Mass/Vol] 9.8 g/dL Low 11.7-15.5 [facility] Comment on above: Performed By: #### 2 0578-1 #### [facility] ([id number]) [address], [facility] [address] [place] [address] LYMPHOCYTES ABSOLUTE COUNT (10*3/UL) BY AUTOMATED COUNT 1.9 10*3/uL Normal 1.0-3.5 [facility] Comment on above: Performed By: #### 2 0578-1 #### [facility] ([id number]) [address] [address] [place] [address] LYMPHOCYTES RELATIVE PERCENT BY AUTOMATED COUNT 25.3 % Normal [facility] Comment on above: Performed By: #### 2 0578-1 #### [facility] ([id number]) [address], [address] [place] [address] MCH (RBC) [Entitic mass] 26.6 pg Low 27-34 [facility] Comment on above: Performed By: #### 2 0578-1 #### [facility] ([id number]) [address] [place] [address] MCHC (RBC) [Mass/Vol] 33.0 g/dL Normal 32-36 [facility] Comment on above: Performed By: #### 2 0578-1 #### [facility] ([id number]) [address] [place] [address] MCV (RBC) [Entitic vol] 81 fL Normal 80-100 [facility] Comment on above: Performed By: #### 2 0578-1 #### [facility] ([id number]) [address], [address] [place] [address] MONOCYTES ABSOLUTE COUNT (10*3/UL) BY AUTOMATED COUNT 1.0 10*3/uL High 0.0-0.9 [facility] Comment on above: Performed By: #### 2 0578-1 #### [facility] ([id number]) [address] [place] [address] MONOCYTES RELATIVE PERCENT BY AUTOMATED COUNT 14.0 % Normal [facility] Comment on above: Performed By: #### 2 0578-1 #### [facility] ([id number]) [address] [facility] [address] [place] [address] NEUTROPHILS ABSOLUTE COUNT BY AUTOMATED COUNT 4.0 10*3/uL Normal 1.5-6.6 [facility] Comment on above: Performed By: #### 2 0578-1 #### [facility] ([id number]) [address] [address] [place] [address] NEUTROPHILS RELATIVE PERCENT BY AUTOMATED COUNT 55.0 % Normal [facility] Comment on above: Performed By: #### 2 0578-1 #### [facility] ([id number]) [address] [place] [address] Platelet mean volume (Bld) [Entitic vol] 8.1 fL Normal 7-12 [facility] Comment on above: Performed By: #### 2 0578-1 #### [facility] ([id number]) [address] [address] [place] [address] Platelets (Bld) [#/Vol] 222 10*3/uL Normal 150-450 [facility] Comment on above: Performed By: #### 2 0578-1 #### [facility] ([id number]) [address], [address] [place] [address] RBC COUNT 3.69 X10E12/L Low 3.8-5.2 [facility] Comment on above: Performed By: #### 2 0578-1 #### [facility] ([id number]) [address], [address] [place] [address] WBC (Bld) [#/Vol] 7.4 10*3/uL Normal 4-11 [facility] Comment on above: Performed By: #### 2 0578-1 #### [facility] ([id number]) [address], [address] [place] [address] COMPREHENSIVE METABOLIC PANE Dickson 07-13-2025 Albumin [Mass/Vol] 3.7 g/dL Normal 3.2-5.3 [facility] Comment on above: Performed By: #### 2 0578-1 #### [facility] ([id number]) [address], [address] [place] [address] ALP [Catalytic activity/Vol] 133 U/L High 39-130 [facility] Comment on above: Performed By: #### 2 0578-1 #### [facility] ([id number]) [address], [address] [place] [address] ALT [Catalytic activity/Vol] 10 U/L Normal <=31 [facility] Comment on above: Performed By: #### 2 0578-1 #### [facility] ([id number]) [address], [address] [place] [address] Anion gap [Moles/Vol] 9 mmol/L Normal 5-15 [facility] Comment on above: Performed By: #### 2 0578-1 #### [facility] ([id number]) [address] [place] [address] AST [Catalytic activity/Vol] 24 U/L Normal <=41 [facility] Comment on above: Performed By: #### 2 0578-1 #### [facility] ([id number]) [address], [address] [place] [address] Bilirubin [Mass/Vol] 0.4 mg/dL Normal 0.3-1.2 [facility] Comment on above: Performed By: #### 2 0578-1 #### [facility] ([id number]) [address], [address] [place] [address] Calcium [Mass/Vol] 9.4 mg/dL Normal 8.5-10.5 [facility] Comment on above: Performed By: #### 2 0578-1 #### [facility] ([id number]) [address], [address] [place] [address] Chloride [Moles/Vol] 95 mmol/L Low 98-109 [facility] Comment on above: Performed By: #### 2 0578-1 #### [facility] ([id number]) [address] [place] [address] CO2 [Moles/Vol] 32 mmol/L Normal 22-32 [facility] Comment on above: Performed By: #### 2 0578-1 #### [facility] ([id number]) [address] [place] [address] Creatinine [Mass/Vol] 1.73 mg/dL High 0.40-1.00 [facility] Comment on above: Result Comment: METH OD TRACEABLE TO IDMS STANDARD Performed By: #### 2 0578-1 #### [facility] ([id number]) [address], [address] [place] [address] GFR/1.73 sq M.predicted among non-blacks MDRD (S/P/Bld) [Vol rate/Area] 30 mL/min/{1.73_m2} Low >=60 [facility] Comment on above: Result Comment: Repo rted eGFR is based on the CKD-EPI 2020 equation that does not use a race coefficient. Performed By: #### 2 0578-1 #### [facility] ([id number]) [address], [address] [place] [address] Glucose [Mass/Vol] 160 mg/dL High 65-99 [facility] Comment on above: Performed By: #### 2 0578-1 #### [facility] ([id number]) [address], [address] [place] [address] Potassium [Moles/Vol] 4.1 mmol/L Normal 3.5-5.0 [facility] Comment on above: Performed By: #### 2 0578-1 #### [facility] ([id number]) [address] [place] [address] Protein [Mass/Vol] 7.3 g/dL Normal 6.0-8.0 [facility] Comment on above: Performed By: #### 2 0578-1 #### [facility] ([id number]) [address], [address] [place] [address] Sodium [Moles/Vol] 136 mmol/L Normal 134-146 [facility] Comment on above: Performed By: #### 2 0578-1 #### [facility] ([id number]) [address] [place] [address] Urea nitrogen [Mass/Vol] 24 mg/dL Normal 5-27 [facility] Comment on above: Performed By: #### 2 0578-1 #### [facility] ([id number]) [address] [place] [address] FERRITINon 07-13-2025 Ferritin [Mass/Vol] 290 ng/mL Normal 11-307 [facility] Comment on above: Performed By: #### C NATIVIDAD, CMP, #### [facility] ([id number]) [address], [address] [place] [address] FOLATEon 07-13-2025 FOLIC ACID 7.9 ng/mL Normal >5.8 [facility] Comment on above: Performed By: #### C BCA, CMP, #### [facility] ([id number]) [address], [address] [place] [address] HAPTOGLOBINon 07-13-2025 HAPTOGLOBIN 258 mg/dL High 32-228 [facility] Comment on above: Performed By: #### C RUBEN HENSON, 07744-9 #### [facility] ([id number]) [address], [address] [place] [address] HE4, Son 07-13-2025 HE4, S 272 pmol/L High <=140 [facility] Comment on above: Result Comment: ADDITIONAL INFORMATION The testing method is an electrochemiluminescence assay manufactured by [employer] and performed on the Modular or Pilar system. Values obtained with different assay methods or kits may be different and cannot be used interchangeably. Test results cannot be interpreted as absolute evidence for the presence or absence of malignant disease. Test Performed by: [facility] [address] [place] [address] Mathematician Research: Radha Mccormack Ph.D.; CLIA# [id number] Performed By: #### C RUBEN HENSON, 42562-7 #### [facility] ([id number]) [address] [place] [address] HEMOGLOBIN AND HEMATOCRIT, B LOODon 07-13-2025 HEMOGLOBIN AND HEMATOCRIT, BLOOD HH HEMOGLOBIN AND HEMATOCRIT, BLOOD Cancelled Normal [facility] IRON AND TIBCon 07-13-2025 Iron [Mass/Vol] 24 ug/dL Low 50-170 [facility] Comment on above: Performed By: #### C RUBEN HENSON, 49257-9 #### [facility] ([id number]) [address], [address] [place] [address] IRON BINDING 235 ug/dL Low 250-425 [facility] Comment on above: Performed By: #### C RUBEN HENSON, #### [facility] ([id number]) [address], [address] [place] [address] IRON SATURATION 10 % SATURATION Low 15-50 [facility] Comment on above: Performed By: #### C RUBEN HENSON, #### [facility] ([id number]) [address], [address] [place] [address] Transferrin [Mass/Vol] 168 mg/dL Normal 168-336 [facility] Comment on above: Performed By: #### C RUBEN HENSON, #### [facility] ([id number]) [address], [address] [place] [address] MAGNESIUMon 07-13-2025 Magnesium [Mass/Vol] 2.1 mg/dL Normal 1.8-2.6 [facility] Comment on above: Performed By: #### 2 0578-1 #### [facility] ([id number]) [address] [place] [address] PROTIME AND INRon 07-13-2025 INR 1.0 Normal 0.9-1.2 [facility] Comment on above: Performed By: #### 2 0578-1 #### [facility] ([id number]) [address], [address] [place] [address] PT Coag (PPP) [Time] 11.1 s Normal 9.8-13.2 [facility] Comment on above: Performed By: #### 2 0578-1 #### [facility] ([id number]) [address], [address] [place] [address] VITAMIN B12on 07-13-2025 Cobalamin (Vitamin B12) [Mass/Vol] 1015 pg/mL High 180-914 [facility] Comment on above: Performed By: #### C NATIVIDAD, CMP, #### [facility] ([id number]) [address], [address] [place] [address] XR FEMUR LT 2+ VIEWSon 07-13 XR FEMUR LT 2+ VIEWS XR FEMUR LT 2+ VIEWS Clinical history: Metastases. Left femur: 07/13/2025 COMPARISON: None Correlation: MRI 07/04/2025 FINDINGS: 2 views of the femur were obtained. 4 images are submitted. Patchy trabecular appearance and areas of cortical irregularity within the proximal femur compatible with osseous metastases. There are areas of cortical lucency particularly along the subtrochanteric femur with endosteal scalloping. No pathologic fracture is evident. There is some ossification of soft tissues and vascular calcification around the proximal femur. Degenerative changes are present at the hip and knee IMPRESSION: Areas of 5 osteolysis in the proximal femur compatible with metastatic lesions with no pathologic fracture evident currently. Finalized by Danilo Barnes MD on 07/13/2025 11:54 AM Normal [facility] XR FEMUR RT 2+ VIEWSon 07-13 XR FEMUR RT 2+ VIEWS XR FEMUR RT 2+ VIEWS Clinical history: Postop follow-up. Right femur: 07/13/2025 COMPARISON: None FINDINGS: 2 views of the femur were obtained. 4 images are submitted. An intramedullary nail traverses the femoral shaft. No hardware complication is evident. Areas of osseous lucency are present proximally and in the mid shaft region. No pathologic fracture is evident. Knee and hip evaluation are incomplete. There is some prominence of soft tissue irregularity lateral to the hip consistent with postoperative change. IMPRESSION: Status post intramedullary nail placement. Finalized by Danilo Barnes MD on 07/13/2025 11:52 AM Normal [facility] XR FEMUR RT 2+ VIEWS XR FEMUR RT 2+ VIEWS Clinical history: Femoral nail placement. Fluoroscopy for intraoperative assessment: 07/13/2025 Impression: 1. Fluoroscopy was provided for the procedure intraoperatively. 2. A total of 2 minutes and 11 seconds of fluoroscopy time was utilized. 3. Exposure (reference Air Kerma) was calculated to be 24.39 mGy. 4. A total of 16 views from fluoroscopy demonstrate stages of the procedure. 5. Please refer to the procedural report. Finalized by Danilo Barnes MD on 07/13/2025 9:53 AM Normal [facility] 36on 07-12-2025 36 Please see message b elow. Pt's daughter called asking if you go to [facility], as pt was transferred there last night and had MRI this morning and needs shunt checked. I told pt's daughter that I will notify you of this. Normal [facility] APTTon 07-12-2025 aPTT Coag (Bld) [Time] 26 s Normal 26-37 [facility] Comment on above: Performed By: #### 2 0578-1 #### [facility] ([id number]) [address] [place] [address] BEDSIDE GLUCOSEon 07-12-2025 Glucose [Mass/Vol] 319 mg/dL High 6599 [facility] Comment on above: Performed By: #### C BCA, [facility], 86[address]-2 #### [facility] ([id number]) [address], [address] [place] [address] Glucose [Mass/Vol] 214 mg/dL High 65-99 [facility] Comment on above: Performed By: #### B EDG ####[facility] ([address] [place] [address] VIR CBC WITH AUTO DIFFERENTIALon 07-12-2025 BASOPHILS ABSOLUTE COUNT (10*3/UL) BY AUTOMATED COUNT 0.1 10*3/uL Normal 0.0-0.2 [facility] Comment on above: Performed By: #### C BCA ####[facility] ([facility])[address] [facility] [place] [address] VIR BASOPHILS RELATIVE PERCENT BY AUTOMATED COUNT 0.7 % Normal [facility] Comment on above: Performed By: #### C BCA ####[facility])[address] [facility] [place] [address] VIR CELLAVISION DIFFERENTIAL TYPE AUTOMATED DIFFERENTIAL Normal [facility] Comment on above: Performed By: #### C BCA ####[facility] ([address] [place] [address] VIR Eosinophils (Bld) [#/Vol] 0.4 10*3/uL Normal 0.0-0.4 [facility] Comment on above: Performed By: #### C BCA ####[facility] ([address] [place] [address] VIR EOSINOPHILS RELATIVE PERCENT BY AUTOMATED COUNT 5.3 % Normal [facility] Comment on above: Performed By: #### C BCA ####[facility] ([address] [place] [address] VIR Erythrocyte distribution width (RBC) [Ratio] 17.9 % High 11.5-15 [facility] Comment on above: Performed By: #### C BCA ####[facility] ([address] [place] [address] VIR Hematocrit (Bld) [Volume fraction] 27.2 % Low 35-47 [facility] Comment on above: Performed By: #### C BCA ####[facility] ([address] [place] [address] VIR Hemoglobin (Bld) [Mass/Vol] 9.0 g/dL Low 11.7-15.5 [facility] Comment on above: Performed By: #### C BCA ####[facility] ([address] [place] [address] VIR LYMPHOCYTES ABSOLUTE COUNT (10*3/UL) BY AUTOMATED COUNT 2.5 10*3/uL Normal 1.0-3.5 [facility] Comment on above: Performed By: #### C BCA ####[facility] ([address] [place] [address] VIR LYMPHOCYTES RELATIVE PERCENT BY AUTOMATED COUNT 33.4 % Normal [facility] Comment on above: Performed By: #### C BCA ####[facility] ([address] [place] [address] VIR MCH (RBC) [Entitic mass] 26.7 pg Low 27-34 [facility] Comment on above: Performed By: #### C BCA ####[facility] ([address] [place] [address] VIR MCHC (RBC) [Mass/Vol] 33.0 g/dL Normal 32-36 [facility] Comment on above: Performed By: #### C BCA ####[facility] ([address] [place] [address] VIR MCV (RBC) [Entitic vol] 81 fL Normal 80-100 [facility] Comment on above: Performed By: #### C BCA ####[facility] ([address] [place] [address] VIR MONOCYTES ABSOLUTE COUNT (10*3/UL) BY AUTOMATED COUNT 1.0 10*3/uL High 0.0-0.9 [facility] Comment on above: Performed By: #### C BCA ####[facility] ([address] [place] [address] VIR MONOCYTES RELATIVE PERCENT BY AUTOMATED COUNT 13.1 % Normal [facility] Comment on above: Performed By: #### C BCA ####[facility] ([address] [place] [address] VIR NEUTROPHILS ABSOLUTE COUNT BY AUTOMATED COUNT 3.6 10*3/uL Normal 1.5-6.6 [facility] Comment on above: Performed By: #### C BCA ####[facility] ([address] [place] [address] VIR NEUTROPHILS RELATIVE PERCENT BY AUTOMATED COUNT 47.5 % Normal [facility] Comment on above: Performed By: #### C BCA ####[facility] ([address] [place] [address] VIR Platelet mean volume (Bld) [Entitic vol] 8.2 fL Normal 7-12 [facility] Comment on above: Performed By: #### C BCA ####[facility] ([address] [place] [address] VIR Platelets (Bld) [#/Vol] 230 10*3/uL Normal 150-450 [facility] Comment on above: Performed By: #### C BCA ####[facility] ([address] [place] [address] VIR RBC COUNT 3.36 X10E12/L Low 3.8-5.2 [facility] Comment on above: Performed By: #### C BCA ####[facility] ([address] [place] [address] VIR WBC (Bld) [#/Vol] 7.6 10*3/uL Normal 4-11 [facility] Comment on above: Performed By: #### C BCA ####[facility] ([address] [place] [address] VIR COMPREHENSIVE METABOLIC PANE Dickson 07-12-2025 Albumin [Mass/Vol] 3.1 g/dL Low 3.2-5.3 [facility] Comment on above: Performed By: #### C MP ####[facility] ([address] [place] [address] VIR ALP [Catalytic activity/Vol] 121 U/L Normal 39-130 [facility] Comment on above: Performed By: #### C MP ####[facility] ([address] [place] [address] VIR ALT [Catalytic activity/Vol] 15 U/L Normal <=31 [facility] Comment on above: Performed By: #### C MP ####[facility] ([address] [place] [address] VIR Anion gap [Moles/Vol] 10 mmol/L Normal 5-15 [facility] Comment on above: Performed By: #### C MP ####[facility] ([address] [place] [address] VIR AST [Catalytic activity/Vol] 29 U/L Normal <=41 [facility] Comment on above: Performed By: #### C MP ####[facility] ([address] [place] [address] VIR Bilirubin [Mass/Vol] 0.6 mg/dL Normal 0.3-1.2 [facility] Comment on above: Performed By: #### C MP ####[facility] ([address] [place] [address] VIR Calcium [Mass/Vol] 8.9 mg/dL Normal 8.5-10.5 [facility] Comment on above: Performed By: #### C MP ####[facility] ([address] [place] [address] VIR Chloride [Moles/Vol] 94 mmol/L Low 98-109 [facility] Comment on above: Performed By: #### C MP ####[facility] ([address] [place] [address] VIR CO2 [Moles/Vol] 30 mmol/L Normal 22-32 [facility] Comment on above: Performed By: #### C MP ####[facility] ([address] [place] [address] VIR Creatinine [Mass/Vol] 1.75 mg/dL High 0.40-1.00 [facility] Comment on above: Result Comment: METH OD TRACEABLE TO IDMS STANDARD Performed By: #### C MP ####[facility] ([address] [place] [address] VIR GFR/1.73 sq M.predicted among non-blacks MDRD (S/P/Bld) [Vol rate/Area] 29 mL/min/{1.73_m2} Low >=60 [facility] Comment on above: Result Comment: eGFR not reported due to non-numeric value for Creatinine.Reported eGFR is based on theCKD-EPI 2020 equation that doesnot use a race coefficient. Performed By: #### C MP ####[facility] ([address] [place] [address] VIR Glucose [Mass/Vol] 139 mg/dL High 65-99 [facility] Comment on above: Performed By: #### C MP ####[facility] ([address] [address] VIR Potassium [Moles/Vol] 4.2 mmol/L Normal 3.5-5.0 [facility] Comment on above: Performed By: #### C MP ####[facility] ([address] [address] VIR Protein [Mass/Vol] 6.8 g/dL Normal 6.0-8.0 [facility] Comment on above: Performed By: #### C MP ####[facility] ([address] [place] [address] VIR Sodium [Moles/Vol] 134 mmol/L Normal 134-146 [facility] Comment on above: Performed By: #### C MP ####[facility] ([address] [address] VIR Urea nitrogen [Mass/Vol] 27 mg/dL Normal 5-27 [facility] Comment on above: Performed By: #### C MP ####[facility] ([address] [place] [address] VIR MAGNESIUMon 07-12-2025 Magnesium [Mass/Vol] 2.1 mg/dL Normal 1.8-2.6 [facility] Comment on above: Performed By: #### M G ####[facility] ([facility])[address] [place] [address] VIR MR PELVIS W WO CONTon 2024 MR PELVIS W WO CONT Normal [facility] PROTIME AND INRon 07-12-2025 INR 1.0 Normal 0.9-1.2 [facility] Comment on above: Performed By: #### 2 0578-1 #### [facility] ([id number]) [address] [place] [address] PT Coag (PPP) [Time] 11.2 s Normal 9.8-13.2 [facility] Comment on above: Performed By: #### 2 0578-1 #### [facility] ([id number]) [address] [place] [address] TYPE AND SCREENon 07-12-2025 ABO_INTEP O Normal [facility] Comment on above: Performed By: #### 2 0578-1 #### [facility] ([id number]) [address] [place] [address] RH_INTEP Negative Normal [facility] Comment on above: Performed By: #### 2 0578-1 #### [facility] ([id number]) [address] [place] [address] XR CHEST 1 VWon 07-12-2025 XR CHEST 1 VW XR CHEST 1 VW EXAM: XR CHEST 1 VW CLINICAL INFORMATION: pre op. COMPARISON: 07/02/2025 FINDINGS: There are no pleural effusions. There are low lung volumes with some associated hypoventilatory changes. Stable cardiomediastinal silhouette. 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 There is partial visualization of a right-sided WELD ENGINEER shunt. IMPRESSION: 1. No acute cardiopulmonary disease. 2. Postsurgical changes, as above. Finalized by Laci Lima MD on 07/12/2025 10:33 PM Normal [facility] XR FEMUR RT 2+ VIEWSon 07-12 XR FEMUR RT 2+ VIEWS XR FEMUR RT 2+ VIEWS [place] BON[place] right femur HISTORY: pain EXAMINATION: 2 views AP and lateral. COMPARISON: None available. FINDINGS: Osteopenia. Multiple lytic lesions some of them demonstrating endosteal scalloping particularly in the distal shaft. Significant likely lytic process with pathological changes in the greater trochanter noted. No pathological fracture identified. Soft tissue vascular calcification IMPRESSION: Multiple lytic lesions in the right femur consistent with either metastatic disease or multiple myeloma. No pathological fracture. Finalized by Damien Golden MD on 07/12/2025 8:50 PM Normal [facility] XR HIP RT 2-3 VIEWS W OR WO PELVISon 07-12-2025 XR HIP RT 2-3 VIEWS W OR WO PELVIS XR HIP RT 2-3 VIEWS W OR WO PELVIS EXAM: XR HIP RT 2-3 VIEWS W OR WO PELVIS CLINICAL INFORMATION: pain. COMPARISON: 05/30/2025, CT of the abdomen and pelvis dated 07/02/2025, MRI of the pelvis dated 07/12/2025 FINDINGS: There is redemonstration of extensive osseous metastatic disease throughout the pelvis, hips, and visualized proximal femurs. This is again most prominently seen involving the proximal right femur. A nondisplaced fracture of the greater trochanter is again noted, as seen on prior CT and MRI. Old fractures of the inferior pubic rami are also again noted. No convincing radiographically evident new acute displaced fracture is identified. There is no convincing evidence for dislocation of the hip joint. There is partial visualization of a WELD ENGINEER shunt catheter with the tip terminating in the right adnexa. IMPRESSION: 1. Redemonstration of extensive osseous metastatic disease throughout the pelvis, hips, and proximal femurs, again most prominently seen involving the proximal right femur. There is a nondisplaced presumed pathologic fracture of the right greater trochanter, as seen on MRI and CT. Old fractures of the inferior pubic rami are also again noted. 2. No convincing radiographically evident new acute displaced fracture is identified. If there is persistent clinical concern for new fracture, further evaluation with MRI is recommended. Finalized by Laci Lima MD on 07/12/2025 9:05 PM Normal [facility] XR SKULL 1-3 VWS PARTIALon 0 07-12-2025 XR SKULL 1-3 VWS PARTIAL XR SKULL 1-3 VWS PARTIAL XR SKULL 1-3 VWS PARTIAL: 07/12/2025 PROVIDED HISTORY: * 80 years old Female * Codman Hakim WELD ENGINEER Shunt, please focus on right sided shunt reservoir for setting COMPARISON: None. FINDINGS/IMPRESSION: 1. Ventriculostomy catheter, partially visualized with, Codman Hakim programmable shunt set to approximately 120. 2. Otherwise no acute osseous abnormality. Finalized by Doug Funes MD on 07/12/2025 10:04 PM Normal [facility] 36on 07-11-2025 36 GABBY Liu from [facility] in [place] called asking if pt's shunt is MRI compatible. Noe was notified that it is MRI compatible but will need to have her shunt checked after the MRI. I asked Noe if they have someone in house to do so. Noe stated that they did not and are thinking of transferring pt to either [facility] or [facility]. I had advised Noe to make sure that [facility] has someone to check shunt. Noe verbalized understanding. Normal [facility] BEDSIDE GLUCOSEon 07-11-2025 Glucose [Mass/Vol] 184 mg/dL High 65-99 [facility] Comment on above: Performed By: #### B EDG ####[facility] ([address] [place] [address] VIR Glucose [Mass/Vol] 306 mg/dL High 65-[address] [place] [address] Comment on above: Performed By: #### B EDG ####[facility] ([address] [place] [address] VIR Glucose [Mass/Vol] 255 mg/dL High [address] Comment on above: Performed By: #### B EDG ####[facility] ([address] [place] [address] VIR CBC WITH AUTO DIFFERENTIALon 07-11-2025 BASOPHILS ABSOLUTE COUNT (10*3/UL) BY AUTOMATED COUNT 0.0 10*3/uL Normal 0.0-0.2 [facility] Comment on above: Performed By: #### C BCA ####[facility] ([address] [address] VIR BASOPHILS RELATIVE PERCENT BY AUTOMATED COUNT 0.5 % Normal [facility] Comment on above: Performed By: #### C BCA ####[facility] ([address] [address] VIR CELLAVISION DIFFERENTIAL TYPE AUTOMATED DIFFERENTIAL Normal [facility] Comment on above: Performed By: #### C BCA ####[facility] ([address] [address] VIR Eosinophils (Bld) [#/Vol] 0.3 10*3/uL Normal 0.0-0.4 [facility] Comment on above: Performed By: #### C BCA ####[facility] ([address] [address] VIR EOSINOPHILS RELATIVE PERCENT BY AUTOMATED COUNT 3.6 % Normal [facility] Comment on above: Performed By: #### C BCA ####[facility] ([address] [address] VIR Erythrocyte distribution width (RBC) [Ratio] 18.3 % High 11.5-15 [facility] Comment on above: Performed By: #### C BCA ####[facility] ([address] [address] VIR Hematocrit (Bld) [Volume fraction] 28.7 % Low 35-47 [facility] Comment on above: Performed By: #### C BCA ####[facility] ([address] [place] [address] VIR Hemoglobin (Bld) [Mass/Vol] 9.5 g/dL Low 11.7-15.5 [facility] Comment on above: Performed By: #### C BCA ####[facility] ([address] [address] VIR LYMPHOCYTES ABSOLUTE COUNT (10*3/UL) BY AUTOMATED COUNT 2.3 10*3/uL Normal 1.0-3.5 [facility] Comment on above: Performed By: #### C BCA ####[facility] ([address] [address] VIR LYMPHOCYTES RELATIVE PERCENT BY AUTOMATED COUNT 27.6 % Normal [facility] Comment on above: Performed By: #### C BCA ####[facility] ([address] [address] VIR MCH (RBC) [Entitic mass] 26.7 pg Low 27-34 [facility] Comment on above: Performed By: #### C BCA ####[facility] ([address] [address] VIR MCHC (RBC) [Mass/Vol] 33.0 g/dL Normal 32-36 [facility] Comment on above: Performed By: #### C BCA ####[facility] ([address] [address] VIR MCV (RBC) [Entitic vol] 81 fL Normal 80-100 [facility] Comment on above: Performed By: #### C BCA ####[facility] ([address] [address] VIR MONOCYTES ABSOLUTE COUNT (10*3/UL) BY AUTOMATED COUNT 1.0 10*3/uL High 0.0-0.9 [facility] Comment on above: Performed By: #### C BCA ####[facility] ([address] [address] VIR MONOCYTES RELATIVE PERCENT BY AUTOMATED COUNT 11.7 % Normal [facility] Comment on above: Performed By: #### C BCA ####[facility] ([address] [address] VIR NEUTROPHILS ABSOLUTE COUNT BY AUTOMATED COUNT 4.7 10*3/uL Normal 1.5-6.6 [facility] Comment on above: Performed By: #### C BCA ####[facility] ([address] [place] [address] VIR NEUTROPHILS RELATIVE PERCENT BY AUTOMATED COUNT 56.6 % Normal [facility] Comment on above: Performed By: #### C BCA ####[facility] ([address] [address] VIR Platelet mean volume (Bld) [Entitic vol] 8.6 fL Normal 7-12 [facility] Comment on above: Performed By: #### C BCA ####[facility] ([address] [address] VIR Platelets (Bld) [#/Vol] 241 10*3/uL Normal 150-450 [facility] Comment on above: Performed By: #### C BCA ####[facility] ([address] [address] VIR RBC COUNT 3.54 X10E12/L Low 3.8-5.2 [facility] Comment on above: Performed By: #### C BCA ####[facility] ([address] [address] VIR WBC (Bld) [#/Vol] 8.3 10*3/uL Normal 4-11 [facility] Comment on above: Performed By: #### C BCA ####[facility] ([address] [address] VIR COMPREHENSIVE METABOLIC PANE Dickson 07-11-2025 Albumin [Mass/Vol] 3.2 g/dL Normal 3.2-5.3 [facility] Comment on above: Performed By: #### C MP ####[facility] ([address] [place] [address] VIR ALP [Catalytic activity/Vol] 118 U/L Normal 39-130 [facility] Comment on above: Performed By: #### C MP ####[facility] ([address] [place] [address] VIR ALT [Catalytic activity/Vol] 15 U/L Normal <=31 [facility] Comment on above: Performed By: #### C MP ####[facility] ([address] [place] [address] VIR Anion gap [Moles/Vol] 11 mmol/L Normal 5-15 [facility] Comment on above: Performed By: #### C MP ####[facility] ([address] [place] [address] VIR AST [Catalytic activity/Vol] 37 U/L Normal <=41 [facility] Comment on above: Performed By: #### C MP ####[facility] ([address] [place] [address] VIR Bilirubin [Mass/Vol] 0.6 mg/dL Normal 0.3-1.2 [facility] Comment on above: Performed By: #### C MP ####[facility] ([address] [place] [address] VIR Calcium [Mass/Vol] 9.1 mg/dL Normal 8.5-10.5 [facility] Comment on above: Performed By: #### C MP ####[facility] ([address] [place] [address] VIR Chloride [Moles/Vol] 94 mmol/L Low 98-109 [facility] Comment on above: Performed By: #### C MP ####[facility] ([address] [place] [address] VIR CO2 [Moles/Vol] 31 mmol/L Normal 22-32 [facility] Comment on above: Performed By: #### C MP ####[facility] ([address] [place] [address] VIR Creatinine [Mass/Vol] 1.56 mg/dL High 0.40-1.00 [facility] Comment on above: Result Comment: METH OD TRACEABLE TO IDMS STANDARD Performed By: #### C MP ####[facility] ([address] [place] [address] VIR GFR/1.73 sq M.predicted among non-blacks MDRD (S/P/Bld) [Vol rate/Area] 34 mL/min/{1.73_m2} Low >=60 [facility] Comment on above: Result Comment: eGFR not reported due to non-numeric value for Creatinine.Reported eGFR is based on theCKD-EPI 1 equation that doesnot use a race coefficient. Performed By: #### C MP ####[facility] ([address] [place] [address] VIR Glucose [Mass/Vol] 120 mg/dL High 65-99 [facility] Comment on above: Performed By: #### C MP ####[facility] ([address] [place] [address] VIR Potassium [Moles/Vol] 3.7 mmol/L Normal 3.5-5.0 [facility] Comment on above: Performed By: #### C MP ####[facility] ([address] [place] [address] VIR Protein [Mass/Vol] 7.0 g/dL Normal 6.0-8.0 [facility] Comment on above: Performed By: #### C MP ####[facility] ([address] [place] [address] VIR Sodium [Moles/Vol] 136 mmol/L Normal 134-146 [facility] Comment on above: Performed By: #### C MP ####[facility])[address] [place] [address] [place] [address] VIR Urea nitrogen [Mass/Vol] 28 mg/dL High 04-10 [facility] Comment on above: Performed By: #### C MP ####[facility])[address] [place] [address] [place] [address] VIR MAGNESIUMon 07-11-2025 Magnesium [Mass/Vol] 2.1 mg/dL Normal 1.8-2.6 [facility] Comment on above: Performed By: #### M G ####[facility] ([address] [place] [address] VIR Telephoneon 07-11-2025 Telephone [phone] Jb Dee Y 1945 F Date Provider Department Center 07/11/2025 STEFFI BROWN [facility] SURG Second Fl Family History Problem Relation Age of Onset Diabetes Mother Hypertension Father Coronary artery disease Father Family Status - Relation Status Age at Mother Father Normal [facility] BEDSIDE GLUCOSEon 07-10-2025 Glucose [Mass/Vol] 259 mg/dL High - [facility] Comment on above: Performed By: #### B EDG ####[facility])[address] [place] [address] [place] [address] VIR Glucose [Mass/Vol] 217 mg/dL High - [facility] Comment on above: Performed By: #### B EDG ####[facility] ([address] [place] [address] VIR COMPREHENSIVE METABOLIC PANE Dickson 07-10-2025 Albumin [Mass/Vol] 3.5 g/dL Normal 3.2-5.3 [facility] Comment on above: Performed By: #### C MP ####[facility] ([facility] [place] [address] VIR ALP [Catalytic activity/Vol] 127 U/L Normal 39-130 [facility] Comment on above: Performed By: #### C MP ####[facility] ([place] [address] [place] [address] VIR ALT [Catalytic activity/Vol] 17 U/L Normal <=31 [facility] Comment on above: Performed By: #### C MP ####[facility] ([place] [address] [place] [address] VIR Anion gap [Moles/Vol] 11 mmol/L Normal 5-15 [facility] Comment on above: Performed By: #### C MP ####[facility] ([place] [address] [place] [address] VIR AST [Catalytic activity/Vol] 33 U/L Normal <=41 [facility] Comment on above: Performed By: #### C MP ####[facility] ([place] [address] [place] [address] VIR Bilirubin [Mass/Vol] 0.5 mg/dL Normal 0.3-1.2 [facility] Comment on above: Performed By: #### C MP ####[facility] ([place] [address] [place] [address] VIR Calcium [Mass/Vol] 9.3 mg/dL Normal 8.5-10.5 [facility] Comment on above: Performed By: #### C MP ####[facility] ([place] [address] [place] [address] VIR Chloride [Moles/Vol] 94 mmol/L Low 98-109 [facility] Comment on above: Performed By: #### C MP ####[facility] ([place] [address] [place] [address] VIR CO2 [Moles/Vol] 30 mmol/L Normal 22-32 [facility] Comment on above: Performed By: #### C MP ####[facility] ([address] [place] [address] VIR Creatinine [Mass/Vol] 1.54 mg/dL High 0.40-1.00 [facility] Comment on above: Result Comment: METH OD TRACEABLE TO IDMS STANDARD Performed By: #### C MP ####[facility] ([address] [place] [address] VIR GFR/1.73 sq M.predicted among non-blacks MDRD (S/P/Bld) [Vol rate/Area] 34 mL/min/{1.73_m2} Low >=60 [facility] Comment on above: Result Comment: eGFR not reported due to non-numeric value for Creatinine.Reported eGFR is based on theCKD-EPI 2020 equation that doesnot use a race coefficient. Performed By: #### C MP ####[facility] ([address] [place] [address] VIR Glucose [Mass/Vol] 229 mg/dL High 65-99 [facility] Comment on above: Performed By: #### C MP ####[facility] ([address] [place] [address] VIR Potassium [Moles/Vol] 4.1 mmol/L Normal 3.5-5.0 [facility] Comment on above: Performed By: #### C MP ####[facility] ([address] [place] [address] VIR Protein [Mass/Vol] 7.6 g/dL Normal 6.0-8.0 [facility] Comment on above: Performed By: #### C MP ####[facility] ([address] [place] [address] VIR Sodium [Moles/Vol] 135 mmol/L Normal 134-146 [facility] Comment on above: Performed By: #### C MP ####[facility])[address] [place] [address] VIR Urea nitrogen [Mass/Vol] 30 mg/dL High 5-27 [facility] Comment on above: Performed By: #### C MP ####[facility] (ON LICENSE OF [facility] [place] [address] VIR XR Hip - right 3 [facility] Result: AP Pelvis and right hip: Osteopenia noted lesser trochanteric avulsion fracture appears well aligned. Soft tissue vascular calcifications are prominent , new appearing lucency concerning for intertrochanteric hip fracture. More prominent cystic or lytic changes femoral neck and weight bearing surface femoral head. No effusion. Remote sclerotic changes from pubic ramus fracture bilaterally with mild degenerative changes of hip Impression: stable appearing right hip lesser trochanteric avulsion Fracture with new appearing intertrochanteric hip fracture and cystic changes adjacent concerning for pathologic fracture. [facility] Radiology Study observation (narrative) [facility] BEDSIDE GLUCOSEon 07-05-2025 Glucose [Mass/Vol] 237 mg/dL High 65-99 [facility] Comment on above: Performed By: #### C BCA #### [facility] ([facility]) [address] [place] [address] VIR Glucose [Mass/Vol] 238 mg/dL High 65-99 [facility] Comment on above: Performed By: #### C BCA #### [facility] ([facility]) [address] [place] [address] VIR Glucose [Mass/Vol] 140 mg/dL High 65-99 [facility] Comment on above: Performed By: #### C BCA #### [facility]) [address] [place] [address] VIR Bedside Glucose *Place/Obtai n serum glucose if >500 per glucometer.on 07-05-2025 Glucose [Mass/Vol] 237 mg/dL High 65 - 99 mg/dL [facility] Interpretation and review of laboratory results Abnormal [facility] Glucose [Mass/Vol] 238 mg/dL High 65 - 99 mg/dL [facility] Interpretation and review of laboratory results Abnormal [facility] Glucose [Mass/Vol] 140 mg/dL High 65 - 99 mg/dL [facility] Interpretation and review of laboratory results Abnormal [facility] CBC WITH AUTO DIFFERENTIALon 07-05-2025 BASOPHILS ABSOLUTE COUNT (10*3/UL) BY AUTOMATED COUNT 0.0 10*3/uL Normal 0.0-0.2 [facility] Comment on above: Performed By: #### C BCA #### [facility] ([facility]) [address] [place], [place] [id number] VIR BASOPHILS RELATIVE PERCENT BY AUTOMATED COUNT 0.6 % Normal [facility] Comment on above: Performed By: #### C BCA #### [facility] ([facility]) [address] [place], [place] [id number] VIR CELLAVISION DIFFERENTIAL TYPE AUTOMATED DIFFERENTIAL Normal [facility] Comment on above: Performed By: #### C BCA #### [facility] ([facility]) [address] [place], [place] [id number] VIR Eosinophils (Bld) [#/Vol] 0.3 10*3/uL Normal 0.0-0.4 [facility] Comment on above: Performed By: #### C BCA #### [facility] ([facility]) [address] [place] [address] VIR EOSINOPHILS RELATIVE PERCENT BY AUTOMATED COUNT 3.8 % Normal [facility] Comment on above: Performed By: #### C BCA #### [facility] ([facility]) [address] [place], [place] [id number] VIR Erythrocyte distribution width (RBC) [Ratio] 17.7 % High 11.5-15 [facility] Comment on above: Performed By: #### C BCA #### [facility] ([facility]) [address] [place], [place] [id number] VIR Hematocrit (Bld) [Volume fraction] 27.5 % Low 35-47 [facility] Comment on above: Performed By: #### C BCA #### [facility] ([facility]) [address] [place] [address] VIR Hemoglobin (Bld) [Mass/Vol] 9.1 g/dL Low 11.7-15.5 [facility] Comment on above: Performed By: #### C BCA #### [facility] ([facility]) [address] [place] [address] VIR LYMPHOCYTES ABSOLUTE COUNT (10*3/UL) BY AUTOMATED COUNT 1.4 10*3/uL Normal 1.0-3.5 [facility] Comment on above: Performed By: #### C BCA #### [place] [id number] VIR LYMPHOCYTES RELATIVE PERCENT BY AUTOMATED COUNT 19.9 % Normal [facility] Comment on above: Performed By: #### C BCA #### [facility] ([facility]) [address] [place] [address] VIR MCH (RBC) [Entitic mass] 27.1 pg Normal 27-34 [facility] Comment on above: Performed By: #### C BCA #### [facility] ([facility]) [address] [place] [address] VIR MCHC (RBC) [Mass/Vol] 33.3 g/dL Normal 32-36 [facility] Comment on above: Performed By: #### C BCA #### [facility] ([facility]) [address] [place] [address] VIR MCV (RBC) [Entitic vol] 81 fL Normal 80-100 [facility] Comment on above: Performed By: #### C BCA #### [facility] ([facility]) [address] [place] [address] VIR MONOCYTES ABSOLUTE COUNT (10*3/UL) BY AUTOMATED COUNT 0.9 10*3/uL Normal 0.0-0.9 [facility] Comment on above: Performed By: #### C BCA #### [facility] ([facility]) [address] [place] [address] VIR MONOCYTES RELATIVE PERCENT BY AUTOMATED COUNT 12.3 % Normal [facility] Comment on above: Performed By: #### C BCA #### [facility] ([facility]) [address] [place] [address] VIR NEUTROPHILS ABSOLUTE COUNT BY AUTOMATED COUNT 4.4 10*3/uL Normal 1.5-6.6 [facility] Comment on above: Performed By: #### C BCA #### [facility] ([facility]) [address] [place] [address] VIR NEUTROPHILS RELATIVE PERCENT BY AUTOMATED COUNT 63.4 % Normal [facility] Comment on above: Performed By: #### C BCA #### [facility] ([facility]) [address] [place] [address] VIR Platelet mean volume (Bld) [Entitic vol] 8.3 fL Normal - [facility] Comment on above: Performed By: #### C BCA #### [facility] ([facility]) [address] [place] [address] VIR Platelets (Bld) [#/Vol] 253 10*3/uL Normal 150-450 [facility] Comment on above: Performed By: #### C BCA #### [facility] ([facility]) [address] [place] [address] VIR RBC COUNT 3.37 X10E12/L Low 3.8-5.2 [facility] Comment on above: Performed By: #### C BCA #### [facility] ([facility]) [address] [place] [address] VIR WBC (Bld) [#/Vol] 7.0 10*3/uL Normal - [facility] Comment on above: Performed By: #### C BCA #### [facility] ([facility]) [address] [place] [address] VIR CBC auto differentialon 06-16 Basophils (Bld) [#/Vol] 0 10*3/uL 0.0 - 0.2 10*3/uL [facility] Basophils/100 WBC (Bld) 0.6 % [facility] Differential cell count method Nom (Bld) AUTOMATED DIFFERENTIAL [facility] Eosinophils (Bld) [#/Vol] 0.3 10*3/uL 0.0 - 0.4 10*3/uL [facility] Eosinophils/100 WBC (Bld) 3.8 % [facility] Erythrocyte distribution width (RBC) [Ratio] 17.7 % High 11.5 - 15 % [facility] Hematocrit (Bld) [Volume fraction] 27.5 % Low 35 - 47 % [facility] Hemoglobin (Bld) [Mass/Vol] 9.1 g/dL Low 11.7 - 15.5 g/dL [facility] Interpretation and review of laboratory results Abnormal [facility] Lymphocytes (Bld) [#/Vol] 1.4 10*3/uL 1.0 - 3.5 10*3/uL [facility] Lymphocytes/100 WBC (Bld) 19.9 % [facility] MCH (RBC) [Entitic mass] 27.1 pg 27 - 34 pg [facility] MCHC (RBC) [Mass/Vol] 33.3 g/dL 32 - 36 g/dL [facility] MCV (RBC) [Entitic vol] 81 fL 80 - 100 fL [facility] Monocytes (Bld) [#/Vol] 0.9 10*3/uL 0.0 - 0.9 10*3/uL [facility] Monocytes/100 WBC (Bld) 12.3 % [facility] Neutrophils (Bld) [#/Vol] 4.4 10*3/uL 1.5 - 6.6 10*3/uL [facility] Neutrophils/100 WBC (Bld) 63.4 % [facility] Platelet mean volume (Bld) [Entitic vol] 8.3 fL 7 - 12 fL [facility] Platelets (Bld) [#/Vol] 253 10*3/uL [facility] RBC (Bld) [#/Vol] 3.37 10*6/uL Low [facility] WBC LM Ql (Sput) 7 [facility] COMPREHENSIVE METABOLIC PANE Dickson 07-05-2025 Albumin [Mass/Vol] 3.0 g/dL Low 3.2-5.3 [facility] Comment on above: Performed By: #### C BCA #### [facility] ([facility]) [address] [place] [address] [id number] VIR ALP [Catalytic activity/Vol] 116 U/L Normal 39-130 [facility] Comment on above: Performed By: #### C BCA #### [facility] ([facility]) [address] [place] [address] 46973 VIR ALT [Catalytic activity/Vol] 16 U/L Normal <=31 [facility] Comment on above: Performed By: #### C BCA #### [facility] ([facility]) [address] [place] [address] 60126 VIR Anion gap [Moles/Vol] 8 mmol/L Normal 5-15 [facility] Comment on above: Performed By: #### C BCA #### [facility] ([facility]) [address] [place] [address] [phone] VIR AST [Catalytic activity/Vol] 23 U/L Normal <=41 [facility] Comment on above: Performed By: #### C BCA #### [facility] ([facility]) [address] [place] [address] 14960 VIR Bilirubin [Mass/Vol] 0.7 mg/dL Normal 0.3-1.2 [facility] Comment on above: Performed By: #### C BCA #### [facility] ([facility]) [address] [place] [address] 56054 VIR Calcium [Mass/Vol] 9.1 mg/dL Normal 8.5-10.5 [facility] Comment on above: Performed By: #### C BCA #### [facility] ([facility]) [address] [place] [address] 15596 VIR Chloride [Moles/Vol] 100 mmol/L Normal 98-109 [facility] Comment on above: Performed By: #### C BCA #### [facility]) [address] [place] [address] 49753 VIR CO2 [Moles/Vol] 27 mmol/L Normal 22-32 [facility] Comment on above: Performed By: #### C BCA #### [facility]) [address] [place] [address] 87183 VIR Creatinine [Mass/Vol] 1.30 mg/dL High 0.40-1.00 [facility] Comment on above: Result Comment: METH OD TRACEABLE TO IDMS STANDARD Performed By: #### C BCA #### [facility]) [address] [place] [address] 46143 VIR GFR/1.73 sq M.predicted among non-blacks MDRD (S/P/Bld) [Vol rate/Area] 42 mL/min/{1.73_m2} Low >=60 [facility] Comment on above: Result Comment: eGFR not reported due to non-numeric value for Creatinine. Reported eGFR is based on the CKD-EPI 2021 equation that does not use a race coefficient. Performed By: #### C BCA #### [facility]) [address] [place] [address] 25080 VIR Glucose [Mass/Vol] 157 mg/dL High 65-99 [facility] Comment on above: Performed By: #### C BCA #### [facility]) [address] [place] [address] 81981 VIR Potassium [Moles/Vol] 3.7 mmol/L Normal 3.5-5.0 [facility] Comment on above: Performed By: #### C BCA #### [facility]) [address] [place] [address] 42040 VIR Protein [Mass/Vol] 6.8 g/dL Normal 6.0-8.0 [facility] Comment on above: Performed By: #### C BCA #### [facility]) [address] [place] [address] 36253 VIR Sodium [Moles/Vol] 135 mmol/L Normal 134-146 [facility] Comment on above: Performed By: #### C BCA #### [facility] ([facility]) [address] [place] [address] 60522 VIR Urea nitrogen [Mass/Vol] 16 mg/dL Normal 5-27 [facility] Comment on above: Performed By: #### C BCA #### [facility] ([facility]) [address] [place] [address] VIR Comprehensive metabolic pane dickson 07-05-2025 Albumin [Mass/Vol] 3 g/dL Low 3.2 - 5.3 g/dL [facility] ALP [Catalytic activity/Vol] 116 U/L 39 - 130 U/L [facility] ALT No additional P-5'-P [Catalytic activity/Vol] 16 U/L NINF - 31 U/L [facility] Anion gap [Moles/Vol] 8 mmol/L 5 - 15 mmol/L [facility] AST [Catalytic activity/Vol] 23 U/L NINF - 41 U/L [facility] Bilirubin [Mass/Vol] 0.7 mg/dL 0.3 - 1.2 mg/dL [facility] Calcium [Mass/Vol] 9.1 mg/dL 8.5 - 10.5 mg/dL [facility] Chloride [Moles/Vol] 100 mmol/L 98 - 109 mmol/L [facility] CO2 [Moles/Vol] 27 mmol/L 22 - 32 mmol/L [facility] [...] not use a race coefficient. Glucose [Mass/Vol] 157 mg/dL High 65 - 99 mg/dL [facility] Potassium [Moles/Vol] 3.7 mmol/L 3.5 - 5.0 mmol/L [facility] Protein [Mass/Vol] 6.8 g/dL 6.0 - 8.0 g/dL [facility] Sodium [Moles/Vol] 135 mmol/L 134 - 146 mmol/L [facility] Urea nitrogen [Mass/Vol] 16 mg/dL 5 - 27 mg/dL [facility] MAGNESIUMon 07-05-2025 Magnesium [Mass/Vol] 1.7 mg/dL Low 1.8-2.6 [facility] Comment on above: Performed By: #### B EDG #### [facility] ([facility]) [address] [place] [address] 20519 VIR Magnesiumon 07-05-2025 Magnesium [Mass/Vol] 1.7 mg/dL Low 1.8 - 2.6 mg/dL [facility] No Panel Informationon 07-05 Interpretation and review of laboratory results Abnormal [facility] BEDSIDE GLUCOSEon 07-04-2025 Glucose [Mass/Vol] 189 mg/dL High [address] [place] [address] Comment on above: Performed By: #### B EDG #### [facility] ([facility]) [address] [place] [address] 91806 VIR Glucose [Mass/Vol] 371 mg/dL High [address] [place] [address] Comment on above: Performed By: #### B EDG #### [facility]) [address] [place] [address] 18946 VIR Glucose [Mass/Vol] 254 mg/dL High [address] [place] [address] Comment on above: Performed By: #### B EDG #### [facility] ([facility]) [address] [place] [address] 47373 VIR Glucose [Mass/Vol] 144 mg/dL High [address] [place] [address] Comment on above: Performed By: #### B EDG #### [facility]) [address] [place] [address] 89578 VIR Bedside Glucose *Place/Obtai n serum glucose if >500 per glucometer.on 07-04-2025 Glucose [Mass/Vol] 189 mg/dL High 65 - 99 mg/dL [facility] Interpretation and review of laboratory results Abnormal [facility] Glucose [Mass/Vol] 371 mg/dL High 65 - 99 mg/dL [facility] Interpretation and review of laboratory results Abnormal [facility] Glucose [Mass/Vol] 254 mg/dL High 65 - 99 mg/dL [facility] Interpretation and review of laboratory results Abnormal [facility] Glucose [Mass/Vol] 144 mg/dL High 65 - 99 mg/dL [facility] Interpretation and review of laboratory results Abnormal [facility] CBC WITH AUTO DIFFERENTIALon 07-04-2025 BASOPHILS ABSOLUTE COUNT (10*3/UL) BY AUTOMATED COUNT 0.1 10*3/uL Normal 0.0-0.2 [facility] Comment on above: Performed By: #### B EDG #### [facility] ([facility]) [address] [place] [address] VIR BASOPHILS RELATIVE PERCENT BY AUTOMATED COUNT 0.8 % Normal [facility] Comment on above: Performed By: #### B EDG #### [facility] ([facility]) [address] [place] [address] VIR CELLAVISION DIFFERENTIAL TYPE AUTOMATED DIFFERENTIAL Normal [facility] Comment on above: Performed By: #### B EDG #### [facility] ([facility]) [address] [place] [address] 29739 VIR Eosinophils (Bld) [#/Vol] 0.2 10*3/uL Normal 0.0-0.4 [facility] Comment on above: Performed By: #### B EDG #### [facility] ([facility]) [address] [place], [place] [id number] VIR EOSINOPHILS RELATIVE PERCENT BY AUTOMATED COUNT 2.9 % Normal [facility] Comment on above: Performed By: #### B EDG #### [facility] ([facility]) [address] [place] [address] VIR Erythrocyte distribution width (RBC) [Ratio] 17.5 % High 11.5-15 [facility] Comment on above: Performed By: #### B EDG #### [facility] ([facility]) [address] [place] [address] 56209 VIR Hematocrit (Bld) [Volume fraction] 30.4 % Low 35-47 [facility] Comment on above: Performed By: #### B EDG #### [facility] ([facility]) [address] [place] [address] 56063 VIR Hemoglobin (Bld) [Mass/Vol] 10.2 g/dL Low 11.7-15.5 [facility] Comment on above: Performed By: #### B EDG #### [facility] ([address] [address] VIR LYMPHOCYTES ABSOLUTE COUNT (10*3/UL) BY AUTOMATED COUNT 1.6 10*3/uL Normal 1.0-3.5 [facility] Comment on above: Performed By: #### B EDG #### [facility] ([address] [address] VIR LYMPHOCYTES RELATIVE PERCENT BY AUTOMATED COUNT 24.2 % Normal [facility] Comment on above: Performed By: #### B EDG #### [facility] ([address] [address] VIR MCH (RBC) [Entitic mass] 27.1 pg Normal 27-34 [facility] Comment on above: Performed By: #### B EDG #### [facility] ([facility]) [address] [place] [address] 15473 VIR MCHC (RBC) [Mass/Vol] 33.5 g/dL Normal 32-36 [facility] Comment on above: Performed By: #### B EDG #### [facility]) [address] [place] [address] 59889 VIR MCV (RBC) [Entitic vol] 81 fL Normal 80-100 [facility] Comment on above: Performed By: #### B EDG #### [facility] ([facility]) [address] [place] [address] 64071 VIR MONOCYTES ABSOLUTE COUNT (10*3/UL) BY AUTOMATED COUNT 0.8 10*3/uL Normal 0.0-0.9 [facility] Comment on above: Performed By: #### B EDG #### [facility] ([facility]) [address] [place] [address] 50503 VIR MONOCYTES RELATIVE PERCENT BY AUTOMATED COUNT 12.8 % Normal [facility] Comment on above: Performed By: #### B EDG #### [facility] ([facility]) [address] [place] [address] 69055 VIR NEUTROPHILS ABSOLUTE COUNT BY AUTOMATED COUNT 3.9 10*3/uL Normal 1.5-6.6 [facility] Comment on above: Performed By: #### B EDG #### [facility]) [address] [place] [address] 70148 VIR NEUTROPHILS RELATIVE PERCENT BY AUTOMATED COUNT 59.3 % Normal [facility] Comment on above: Performed By: #### B EDG #### [facility] ([facility]) [address] [place] [address] 89712 VIR Platelet mean volume (Bld) [Entitic vol] 8.9 fL Normal 7-12 [facility] Comment on above: Performed By: #### B EDG #### [facility] ([facility]) [address] [place] [address] 38272 VIR Platelets (Bld) [#/Vol] 304 10*3/uL Normal 150-450 [facility] Comment on above: Performed By: #### B EDG #### [facility] ([facility]) [address] [place] [address] 93236 VIR RBC COUNT 3.75 X10E12/L Low 3.8-5.2 [facility] Comment on above: Performed By: #### B EDG #### [facility] ([facility]) [address] [place] [address] 48948 VIR WBC (Bld) [#/Vol] 6.5 10*3/uL Normal 4-11 [facility] Comment on above: Performed By: #### B EDG #### [facility] ([facility]) [address] [place] [address] 38425 VIR CBC auto differentialon 06-16 Basophils (Bld) [#/Vol] 0.1 10*3/uL 0.0 - 0.2 10*3/uL [facility] Basophils/100 WBC (Bld) 0.8 % [facility] Differential cell count method Nom (Bld) AUTOMATED DIFFERENTIAL [facility] Eosinophils (Bld) [#/Vol] 0.2 10*3/uL 0.0 - 0.4 10*3/uL [facility] Eosinophils/100 WBC (Bld) 2.9 % [facility] Erythrocyte distribution width (RBC) [Ratio] 17.5 % High 11.5 - 15 % [facility] Hematocrit (Bld) [Volume fraction] 30.4 % Low 35 - 47 % [facility] Hemoglobin (Bld) [Mass/Vol] 10.2 g/dL Low 11.7 - 15.5 g/dL [facility] Interpretation and review of laboratory results Abnormal [facility] Lymphocytes (Bld) [#/Vol] 1.6 10*3/uL 1.0 - 3.5 10*3/uL [facility] Lymphocytes/100 WBC (Bld) 24.2 % [facility] MCH (RBC) [Entitic mass] 27.1 pg 27 - 34 pg [facility] MCHC (RBC) [Mass/Vol] 33.5 g/dL 32 - 36 g/dL [facility] MCV (RBC) [Entitic vol] 81 fL 80 - 100 fL [facility] Monocytes (Bld) [#/Vol] 0.8 10*3/uL 0.0 - 0.9 10*3/uL [facility] Monocytes/100 WBC (Bld) 12.8 % [facility] Neutrophils (Bld) [#/Vol] 3.9 10*3/uL 1.5 - 6.6 10*3/uL [facility] Neutrophils/100 WBC (Bld) 59.3 % [facility] Platelet mean volume (Bld) [Entitic vol] 8.9 fL 7 - 12 fL [facility] Platelets (Bld) [#/Vol] 304 10*3/uL [facility] RBC (Bld) [#/Vol] 3.75 10*6/uL Low [facility] WBC LM Ql (Sput) 6.5 [facility] COMPREHENSIVE METABOLIC PANE Dickson 07-04-2025 Albumin [Mass/Vol] 3.4 g/dL Normal 3.2-5.3 [facility] Comment on above: Performed By: #### B EDG #### [facility] ([facility]) [address] [place] [address] 48732 VIR ALP [Catalytic activity/Vol] 130 U/L Normal 39-130 [facility] Comment on above: Performed By: #### B EDG #### [facility] ([address] [address] VIR ALT [Catalytic activity/Vol] 16 U/L Normal <=31 [facility] Comment on above: Performed By: #### B EDG #### [facility] ([address] [address] VIR Anion gap [Moles/Vol] 10 mmol/L Normal 5-15 [facility] Comment on above: Performed By: #### B EDG #### [facility] ([address] [address] VIR AST [Catalytic activity/Vol] 26 U/L Normal <=41 [facility] Comment on above: Performed By: #### B EDG #### [address] [address] VIR Bilirubin [Mass/Vol] 0.7 mg/dL Normal 0.3-1.2 [facility] Comment on above: Performed By: #### B EDG #### [facility] ([facility]) [address] [place] [address] VIR Calcium [Mass/Vol] 9.5 mg/dL Normal 8.5-10.5 [facility] Comment on above: Performed By: #### B EDG #### [facility]) [address] [place] [address] 43710 VIR Chloride [Moles/Vol] 100 mmol/L Normal 98-109 [facility] Comment on above: Performed By: #### B EDG #### [facility] ([facility]) [address] [place] [address] 44469 VIR CO2 [Moles/Vol] 26 mmol/L Normal 22-32 [facility] Comment on above: Performed By: #### B EDG #### [facility]) [address] [place] [address] 34252 VIR Creatinine [Mass/Vol] 1.27 mg/dL High 0.40-1.00 [facility] Comment on above: Result Comment: METH OD TRACEABLE TO IDMS STANDARD Performed By: #### B EDG #### [facility] ([facility]) [address] [place] [address] 27013 VIR GFR/1.73 sq M.predicted among non-blacks MDRD (S/P/Bld) [Vol rate/Area] 43 mL/min/{1.73_m2} Low >=60 [facility] Comment on above: Result Comment: eGFR not reported due to non-numeric value for Creatinine. Reported eGFR is based on the CKD-EPI 2021 equation that does not use a race coefficient. Performed By: #### B EDG #### [facility] ([facility]) [address] [place] [address] 87304 VIR Glucose [Mass/Vol] 121 mg/dL High 65-99 [facility] Comment on above: Performed By: #### B EDG #### [facility]) [address] [place] [address] 46994 VIR Potassium [Moles/Vol] 3.8 mmol/L Normal 3.5-5.0 [facility] Comment on above: Performed By: #### B EDG #### [facility] ([facility]) [address] [place] [address] 70207 VIR Protein [Mass/Vol] 7.4 g/dL Normal 6.0-8.0 [facility] Comment on above: Performed By: #### B EDG #### [facility] ([facility]) [address] [place] [address] VIR Sodium [Moles/Vol] 136 mmol/L Normal 134-146 [facility] Comment on above: Performed By: #### B EDG #### [facility] ([facility]) [address] [place], [place] [id number] VIR Urea nitrogen [Mass/Vol] 14 mg/dL Normal 5-27 [facility] Comment on above: Performed By: #### B EDG #### [facility] ([facility]) [address] [place] [address] VIR Comprehensive metabolic pane dickson 07-04-2025 Albumin [Mass/Vol] 3.4 g/dL 3.2 - 5.3 g/dL [facility] ALP [Catalytic activity/Vol] 130 U/L 39 - 130 U/L [facility] ALT No additional P-5'-P [Catalytic activity/Vol] 16 U/L NINF - 31 U/L [facility] Anion gap [Moles/Vol] 10 mmol/L 5 - 15 mmol/L [facility] AST [Catalytic activity/Vol] 26 U/L NINF - 41 U/L [facility] Bilirubin [Mass/Vol] 0.7 mg/dL 0.3 - 1.2 mg/dL [facility] Calcium [Mass/Vol] 9.5 mg/dL 8.5 - 10.5 mg/dL [facility] Chloride [Moles/Vol] 100 mmol/L 98 - 109 mmol/L [facility] CO2 [Moles/Vol] 26 mmol/L 22 - 32 mmol/L [facility] Creatinine [Mass/Vol] 1.27 mg/dL High 0.40 - 1.00 mg/dL [facility] Comment on above: METHOD TRACEABLE TO IDMS STANDARD EGFR Non-Race Dependent 43 Low - PINF [facility] Comment on above: eGFR not reported du e to non-numeric value for Creatinine. Reported eGFR is based on the CKD-EPI 2020 equation that does not use a race coefficient. Glucose [Mass/Vol] 121 mg/dL High 65 - 99 mg/dL [facility] Interpretation and review of laboratory results Abnormal [facility] Potassium [Moles/Vol] 3.8 mmol/L 3.5 - 5.0 mmol/L [facility] Protein [Mass/Vol] 7.4 g/dL 6.0 - 8.0 g/dL [facility] Sodium [Moles/Vol] 136 mmol/L 134 - 146 mmol/L [facility] Urea nitrogen [Mass/Vol] 14 mg/dL 5 - 27 mg/dL [facility] MAGNESIUMon 07-04-2025 Magnesium [Mass/Vol] 1.9 mg/dL Normal 1.8-2.6 [facility] Comment on above: Performed By: #### B EDG #### [facility] ([facility]) [address] [place] [address] 87371 VIR Magnesiumon 07-04-2025 Magnesium [Mass/Vol] 1.9 mg/dL 1.8 - 2.6 mg/dL [facility] No Panel Informationon 07-04 Interpretation and review of laboratory results Normal [facility] PHOSPHORUSon 07-04-2025 Phosphate [Mass/Vol] 3.2 mg/dL Normal 2.4-4.9 [facility] Comment on above: Performed By: #### B EDG #### [facility] ([facility]) [address] [place] [address] 97619 VIR Phosphoruson 07-04-2025 Phosphate [Mass/Vol] 3.2 mg/dL 2.4 - 4.9 mg/dL [facility] BEDSIDE GLUCOSEon 07-03-2025 Glucose [Mass/Vol] 185 mg/dL High 65-99 [facility] Comment on above: Performed By: #### B EDG #### [facility] ([facility]) [address] [place] [address] 86645 VIR Glucose [Mass/Vol] 125 mg/dL High 65-99 [facility] Comment on above: Performed By: #### B EDG #### [facility]) [address] [place] [address] 17268 VIR Glucose [Mass/Vol] 204 mg/dL High 65-99 [facility] Comment on above: Performed By: #### B EDG #### [facility] ([facility]) [address] [place], [place] [id number] VIR Glucose [Mass/Vol] 125 mg/dL High 65-99 [facility] Comment on above: Performed By: #### B EDG #### [facility]) [address] [place] [address] VIR Bedside Glucose *Place/Obtai n serum glucose if >500 per glucometer.on 07-03-2025 Glucose [Mass/Vol] 185 mg/dL High 65 - 99 mg/dL [facility] Interpretation and review of laboratory results Abnormal [facility] Glucose [Mass/Vol] 125 mg/dL High 65 - 99 mg/dL [facility] Interpretation and review of laboratory results Abnormal [facility] Glucose [Mass/Vol] 204 mg/dL High 65 - 99 mg/dL [facility] Interpretation and review of laboratory results Abnormal [facility] Glucose [Mass/Vol] 125 mg/dL High 65 - 99 mg/dL [facility] Interpretation and review of laboratory results Abnormal [facility] CBC WITH AUTO DIFFERENTIALon 07-03-2025 BASOPHILS ABSOLUTE COUNT (10*3/UL) BY AUTOMATED COUNT 0.0 10*3/uL Normal 0.0-0.2 [facility] Comment on above: Performed By: #### C BCA #### [facility] ([facility]) [address] [place] [address] VIR BASOPHILS RELATIVE PERCENT BY AUTOMATED COUNT 0.4 % Normal [facility] Comment on above: Performed By: #### C BCA #### [facility] ([facility]) [address] [place] [address] [phone] VIR CELLAVISION DIFFERENTIAL TYPE AUTOMATED DIFFERENTIAL Normal [facility] Comment on above: Performed By: #### C BCA #### [facility] ([facility]) [address] [place] [address] 13584 VIR Eosinophils (Bld) [#/Vol] 0.1 10*3/uL Normal 0.0-0.4 [facility] Comment on above: Performed By: #### C BCA #### [facility] ([facility]) [address] [place] [address] 26604 VIR EOSINOPHILS RELATIVE PERCENT BY AUTOMATED COUNT 1.6 % Normal [facility] Comment on above: Performed By: #### C BCA #### [facility] ([facility]) [address] [place] [address] 94228 VIR Erythrocyte distribution width (RBC) [Ratio] 17.3 % High 11.5-15 [facility] Comment on above: Performed By: #### C BCA #### [facility] ([facility]) [address] [place] [address] 944[address] VIR Hematocrit (Bld) [Volume fraction] 27.6 % Low 35-47 [facility] Comment on above: Performed By: #### C BCA #### [facility] ([facility]) [address] [place] [address] VIR Hemoglobin (Bld) [Mass/Vol] 9.2 g/dL Low 11.7-15.5 [facility] Comment on above: Performed By: #### C BCA #### [facility] ([facility]) [address] [place] [address] 03825 VIR LYMPHOCYTES ABSOLUTE COUNT (10*3/UL) BY AUTOMATED COUNT 1.6 10*3/uL Normal 1.0-3.5 [facility] Comment on above: Performed By: #### C BCA #### [facility] ([facility]) [address] [place] [address] 498[address] VIR LYMPHOCYTES RELATIVE PERCENT BY AUTOMATED COUNT 25.8 % Normal [facility] Comment on above: Performed By: #### C BCA #### [facility]) [address] [place] [address] 42981 VIR MCH (RBC) [Entitic mass] 26.9 pg Low 27-34 [facility] Comment on above: Performed By: #### C BCA #### [facility] ([facility]) [address] [place] [address] 49666 VIR MCHC (RBC) [Mass/Vol] 33.5 g/dL Normal 32-36 [facility] Comment on above: Performed By: #### C BCA #### [facility]) [address] [place] [address] 66905 VIR MCV (RBC) [Entitic vol] 81 fL Normal 80-100 [facility] Comment on above: Performed By: #### C BCA #### [address] [address] VIR MONOCYTES ABSOLUTE COUNT (10*3/UL) BY AUTOMATED COUNT 0.7 10*3/uL Normal 0.0-0.9 [facility] Comment on above: Performed By: #### C BCA #### [facility]) [address] [place] [address]0414 VIR MONOCYTES RELATIVE PERCENT BY AUTOMATED COUNT 11.0 % Normal [facility] Comment on above: Performed By: #### C BCA #### [facility]) [address] [place] [address] 14468 VIR NEUTROPHILS ABSOLUTE COUNT BY AUTOMATED COUNT 3.8 10*3/uL Normal 1.5-6.6 [facility] Comment on above: Performed By: #### C BCA #### [facility]) [address] [place] [address] 32144 VIR NEUTROPHILS RELATIVE PERCENT BY AUTOMATED COUNT 61.2 % Normal [facility] Comment on above: Performed By: #### C BCA #### [facility]) [address] [place] [address] 77940 VIR Platelet mean volume (Bld) [Entitic vol] 8.3 fL Normal 7-12 [facility] Comment on above: Performed By: #### C BCA #### [facility] ([facility]) [address] [place] [address] 69332 VIR Platelets (Bld) [#/Vol] 314 10*3/uL Normal 150-450 [facility] Comment on above: Performed By: #### C BCA #### [facility] ([facility]) [address] [place] [address] VIR RBC COUNT 3.43 X10E12/L Low 3.8-5.2 [facility] Comment on above: Performed By: #### C BCA #### [facility] ([facility]) [address] [place] [address] VIR WBC (Bld) [#/Vol] 6.2 10*3/uL Normal 4-11 [facility] Comment on above: Performed By: #### C BCA #### [facility] ([facility]) [address] [place] [address] 03608 VIR CBC auto differentialon 06-15 Basophils (Bld) [#/Vol] 0 10*3/uL 0.0 - 0.2 10*3/uL [facility] Basophils/100 WBC (Bld) 0.4 % [facility] Differential cell count method Nom (Bld) AUTOMATED DIFFERENTIAL [facility] Eosinophils (Bld) [#/Vol] 0.1 10*3/uL 0.0 - 0.4 10*3/uL [facility] Eosinophils/100 WBC (Bld) 1.6 % [facility] Erythrocyte distribution width (RBC) [Ratio] 17.3 % High 11.5 - 15 % [facility] Hematocrit (Bld) [Volume fraction] 27.6 % Low 35 - 47 % [facility] Hemoglobin (Bld) [Mass/Vol] 9.2 g/dL Low 11.7 - 15.5 g/dL [facility] Interpretation and review of laboratory results Abnormal [facility] Lymphocytes (Bld) [#/Vol] 1.6 10*3/uL 1.0 - 3.5 10*3/uL [facility] Lymphocytes/100 WBC (Bld) 25.8 % [facility] MCH (RBC) [Entitic mass] 26.9 pg Low 27 - 34 pg [facility] MCHC (RBC) [Mass/Vol] 33.5 g/dL 32 - 36 g/dL [facility] MCV (RBC) [Entitic vol] 81 fL 80 - 100 fL [facility] Monocytes (Bld) [#/Vol] 0.7 10*3/uL 0.0 - 0.9 10*3/uL [facility] Monocytes/100 WBC (Bld) 11 % [facility] Neutrophils (Bld) [#/Vol] 3.8 10*3/uL 1.5 - 6.6 10*3/uL [facility] Neutrophils/100 WBC (Bld) 61.2 % [facility] Platelet mean volume (Bld) [Entitic vol] 8.3 fL 7 - 12 fL [facility] Platelets (Bld) [#/Vol] 314 10*3/uL [facility] RBC (Bld) [#/Vol] 3.43 10*6/uL Low [facility] WBC LM Ql (Sput) 6.2 [facility] COMPREHENSIVE METABOLIC PANE Dickson 07-03-2025 Albumin [Mass/Vol] 3.2 g/dL Normal 3.2-5.3 [facility] Comment on above: Performed By: #### C MP #### [facility] ([facility]) [address] [place] [address] 78706 VIR ALP [Catalytic activity/Vol] 115 U/L Normal 39-130 [facility] Comment on above: Performed By: #### C MP #### [facility] ([facility]) [address] [place] [address] 33243 VIR ALT [Catalytic activity/Vol] 14 U/L Normal <=31 [facility] Comment on above: Performed By: #### C MP #### [facility] ([facility]) [address] [place] [address] 02[address] VIR Anion gap [Moles/Vol] 9 mmol/L Normal 5-15 [facility] Comment on above: Performed By: #### C MP #### [address] [address] VIR AST [Catalytic activity/Vol] 21 U/L Normal <=41 [facility] Comment on above: Performed By: #### C MP #### [address] [address] VIR Bilirubin [Mass/Vol] 0.9 mg/dL Normal 0.3-1.2 [facility] Comment on above: Performed By: #### C MP #### [address] [address] VIR Calcium [Mass/Vol] 9.0 mg/dL Normal 8.5-10.5 [facility] Comment on above: Performed By: #### C MP #### [address] [address] VIR Chloride [Moles/Vol] 98 mmol/L Normal 98-109 [facility] Comment on above: Performed By: #### C MP #### [address] [address] VIR CO2 [Moles/Vol] 25 mmol/L Normal 22-32 [facility] Comment on above: Performed By: #### C MP #### [facility] ([facility]) [address] [place] [address] 24406 VIR Creatinine [Mass/Vol] 1.17 mg/dL High 0.40-1.00 [facility] Comment on above: Result Comment: METH OD TRACEABLE TO IDMS STANDARD Performed By: #### C MP #### [facility]) [address] [place] [address] 46826 VIR GFR/1.73 sq M.predicted among non-blacks MDRD (S/P/Bld) [Vol rate/Area] 47 mL/min/{1.73_m2} Low >=60 [facility] Comment on above: Result Comment: eGFR not reported due to non-numeric value for Creatinine. Reported eGFR is based on the CKD-EPI 2021 equation that does not use a race coefficient. Performed By: #### C MP #### [facility]) [address] [place] [address] 82095 VIR Glucose [Mass/Vol] 103 mg/dL High 65-99 [facility] Comment on above: Performed By: #### C MP #### [facility]) [address] [place] [address] 67402 VIR Potassium [Moles/Vol] 3.8 mmol/L Normal 3.5-5.0 [facility] Comment on above: Performed By: #### C MP #### [address] [address] VIR Protein [Mass/Vol] 7.0 g/dL Normal 6.0-8.0 [facility] Comment on above: Performed By: #### C MP #### [address] [address] VIR Sodium [Moles/Vol] 132 mmol/L Low 134-146 [facility] Comment on above: Performed By: #### C MP #### [address] [address] VIR Urea nitrogen [Mass/Vol] 18 mg/dL Normal 5-27 [facility] Comment on above: Performed By: #### C MP #### [facility]) [address] [place] [address] 19124 VIR Comprehensive metabolic pane dickson 07-03-2025 Albumin [Mass/Vol] 3.2 g/dL 3.2 - 5.3 g/dL [facility] ALP [Catalytic activity/Vol] 115 U/L 39 - 130 U/L [facility] ALT No additional P-5'-P [Catalytic activity/Vol] 14 U/L NINF - 31 U/L [facility] Anion gap [Moles/Vol] 9 mmol/L 5 - 15 mmol/L [facility] AST [Catalytic activity/Vol] 21 U/L NINF - 41 U/L [facility] Bilirubin [Mass/Vol] 0.9 mg/dL 0.3 - 1.2 mg/dL [facility] Calcium [Mass/Vol] 9 mg/dL 8.5 - 10.5 mg/dL [facility] Chloride [Moles/Vol] 98 mmol/L 98 - 109 mmol/L [facility] CO2 [Moles/Vol] 25 mmol/L 22 - 32 mmol/L [facility] Creatinine [Mass/Vol] 1.17 mg/dL High 0.40 - 1.00 mg/dL [facility] Comment on above: METHOD TRACEABLE TO IDMT STANDARD EGFR Non-Race Dependent 47 Low - PINF [facility] Comment on above: eGFR not reported du e to non-numeric value for Creatinine. Reported eGFR is based on the CKD-EPI 2020 equation that does not use a race coefficient. Glucose [Mass/Vol] 103 mg/dL High 65 - 99 mg/dL [facility] Interpretation and review of laboratory results Abnormal [facility] Potassium [Moles/Vol] 3.8 mmol/L 3.5 - 5.0 mmol/L [facility] Protein [Mass/Vol] 7 g/dL 6.0 - 8.0 g/dL [facility] Sodium [Moles/Vol] 132 mmol/L Low 134 - 146 mmol/L [facility] Urea nitrogen [Mass/Vol] 18 mg/dL 5 - 27 mg/dL [facility] MAGNESIUMon 07-03-2025 Magnesium [Mass/Vol] 1.8 mg/dL Normal 1.8-2.6 [facility] Comment on above: Performed By: #### M G #### [facility] ([facility]) [address] [place] [address] 60478 VIR Magnesiumon 07-03-2025 Magnesium [Mass/Vol] 1.8 mg/dL 1.8 - 2.6 mg/dL [facility] No Panel Informationon 07-03 Interpretation and review of laboratory results Normal [facility] PHOSPHORUSon 07-03-2025 Phosphate [Mass/Vol] 3.1 mg/dL Normal 2.4-4.9 [facility] Comment on above: Performed By: #### P HOS #### [facility] ([facility]) [address] [place] [address] 17961 VIR Phosphoruson 07-03-2025 Phosphate [Mass/Vol] 3.1 mg/dL 2.4 - 4.9 mg/dL [facility] XR ABDOMEN AP 1 VWon 025 XR ABDOMEN AP 1 VW XR ABDOMEN AP 1 VW Abdomen single view Clinical history:n/v abdominal pain Comparison: 10/17/2019 Findings: AP supine view of the abdomen. Ventricular shunt catheter tubing, tip in the right lower quadrant. Nonobstructive, nonspecific bowel gas pattern. Impression: Nonobstructive, nonspecific bowel gas pattern. Finalized by Sarai Acevedo MD on 07/03/2025 2:51 PM Normal [facility] XR Abdomen APon 07-03-2025 Abdomen single view Clinical history:n/v abdominal pain Comparison: 10/17/2019 Findings: AP supine view of the abdomen. Ventricular shunt catheter tubing, tip in the right lower quadrant. Nonobstructive, nonspecific bowel gas pattern. Impression: Nonobstructive, nonspecific bowel gas pattern. Finalized by Sarai Acevedo MD on 07/03/2025 2:51 PM Sarai Mcdonnell MD - 07/03/2025 Abdomen single view Clinical history:n/v abdominal pain Comparison: 10/17/2019 Findings: AP supine view of the abdomen. Ventricular shunt catheter tubing, tip in the right lower quadrant. Nonobstructive, nonspecific bowel gas pattern. Impression: Nonobstructive, nonspecific bowel gas pattern. Finalized by Sarai Acevedo MD on 07/03/2025 2:51 PM [facility] Radiology Study observation (narrative) [facility] XR Abdomen APOrdered By: Clark Acevedo on 07-03-2025 [facility] Work Phone: BEDSIDE GLUCOSEon 07-02-2025 Glucose [Mass/Vol] 99 mg/dL Normal 65-99 [facility] Comment on above: Performed By: #### B EDG #### [facility] ([facility]) [address] [place] [address] 36843 VIR BLOOD CULTUREon 07-02-2025 Bacteria identified Cx Nom (Bld) CULTURE RESULTS NO GROWTH 5 DAYS Normal [facility] Comment on above: Order Comment: *SIRS Criteria: (must display 2 without other explanation)-Temperature < 36 or >38-Pulse >90-Resp rate >20-WBC less than 4K or greater than 12KRepeat blood cultures not needed:-To document that a blood culture is a contaminant when 1 of 2 bottles is positive for a common contaminant (already listed in [facility] with the culture result)-To document clearance of gram negative bacteremia in patients with suspected urinary source who are improving Performed By: #### B C ####[facility] ([facility])[address] [address] VIR Bacteria identified Cx Nom (Bld) CULTURE RESULTS NO GROWTH 5 DAYS Normal [facility] Comment on above: Order Comment: *SIRS Criteria: (must display 2 without other explanation)-Temperature < 36 or >38-Pulse >90-Resp rate >20-WBC less than 4K or greater than 12KRepeat blood cultures not needed:-To document that a blood culture is a contaminant when 1 of 2 bottles is positive for a common contaminant (already listed in [facility] with the culture result)-To document clearance of gram negative bacteremia in patients with suspected urinary source who are improving Performed By: #### B C ####[facility] ([facility])[address] [facility] [address], [place] [address] VIR Bedside Glucose *Place/Obtai n serum glucose if >500 per glucometer.on 07-02-2025 Glucose [Mass/Vol] 99 mg/dL 65 - 99 mg/dL [facility] Interpretation and review of laboratory results Normal [facility] CBC WITH AUTO DIFFERENTIALon 07-02-2025 BASOPHILS ABSOLUTE COUNT (10*3/UL) BY AUTOMATED COUNT 0.0 10*3/uL Normal 0.0-0.2 [facility] Comment on above: Performed By: #### C BCA ####[facility] ([address] [address] VIR BASOPHILS RELATIVE PERCENT BY AUTOMATED COUNT 0.5 % Normal [facility] Comment on above: Performed By: #### C BCA ####[facility] ([address] [address] VIR CELLAVISION DIFFERENTIAL TYPE AUTOMATED DIFFERENTIAL Normal [facility] Comment on above: Performed By: #### C BCA ####[facility] ([address] [address] VIR Eosinophils (Bld) [#/Vol] 0.1 10*3/uL Normal 0.0-0.4 [facility] Comment on above: Performed By: #### C BCA ####[facility] ([address] [address] VIR EOSINOPHILS RELATIVE PERCENT BY AUTOMATED COUNT 1.3 % Normal [facility] Comment on above: Performed By: #### C BCA ####[facility] ([address] [address] VIR Erythrocyte distribution width (RBC) [Ratio] 17.6 % High 11.5-15 [facility] Comment on above: Performed By: #### C BCA ####[facility] ([address] [address] VIR Hematocrit (Bld) [Volume fraction] 31.1 % Low 35-47 [facility] Comment on above: Performed By: #### C BCA ####[facility] ([address] [address] VIR Hemoglobin (Bld) [Mass/Vol] 10.3 g/dL Low 11.7-15.5 [facility] Comment on above: Performed By: #### C BCA ####[facility] ([address] [address] VIR LYMPHOCYTES ABSOLUTE COUNT (10*3/UL) BY AUTOMATED COUNT 1.4 10*3/uL Normal 1.0-3.5 [facility] Comment on above: Performed By: #### C BCA ####[facility] ([address] [address] VIR LYMPHOCYTES RELATIVE PERCENT BY AUTOMATED COUNT 19.8 % Normal [facility] Comment on above: Performed By: #### C BCA ####[facility] ([address] [address] VIR MCH (RBC) [Entitic mass] 26.3 pg Low 27-34 [facility] Comment on above: Performed By: #### C BCA ####[facility] ([address] [address] VIR MCHC (RBC) [Mass/Vol] 32.9 g/dL Normal 32-36 [facility] Comment on above: Performed By: #### C BCA ####[facility] ([address] [address] VIR MCV (RBC) [Entitic vol] 80 fL Normal 80-100 [facility] Comment on above: Performed By: #### C BCA ####[facility] ([address] [place] [address] VIR MONOCYTES ABSOLUTE COUNT (10*3/UL) BY AUTOMATED COUNT 0.7 10*3/uL Normal 0.0-0.9 [facility] Comment on above: Performed By: #### C BCA ####[facility] ([address] [address] VIR MONOCYTES RELATIVE PERCENT BY AUTOMATED COUNT 9.1 % Normal [facility] Comment on above: Performed By: #### C BCA ####[facility] ([address] [place] [address] VIR NEUTROPHILS ABSOLUTE COUNT BY AUTOMATED COUNT 5.0 10*3/uL Normal 1.5-6.6 [facility] Comment on above: Performed By: #### C BCA ####[facility] ([address] [place] [address] VIR NEUTROPHILS RELATIVE PERCENT BY AUTOMATED COUNT 69.3 % Normal [facility] Comment on above: Performed By: #### C BCA ####[facility] ([address] [place] [address] VIR Platelet mean volume (Bld) [Entitic vol] 7.8 fL Normal 7-12 [facility] Comment on above: Performed By: #### C BCA ####[facility] ([address] [place] [address] VIR Platelets (Bld) [#/Vol] 401 10*3/uL Normal 150-450 [facility] Comment on above: Performed By: #### C BCA ####[facility] ([address] [place] [address] VIR RBC COUNT 3.89 X10E12/L Normal 3.8-5.2 [facility] Comment on above: Performed By: #### C BCA ####[facility] ([address] [place] [address] VIR WBC (Bld) [#/Vol] 7.2 10*3/uL Normal 4-11 [facility] Comment on above: Performed By: #### C BCA ####[facility] ([address] [place] [address] VIR COMPREHENSIVE METABOLIC PANE Dickson 07-02-2025 Albumin [Mass/Vol] 3.6 g/dL Normal 3.2-5.3 [facility] Comment on above: Performed By: #### C MP ####[facility] ([place])[address] [place] [address] VIR ALP [Catalytic activity/Vol] 135 U/L High 39-130 [facility] Comment on above: Performed By: #### C MP ####[facility] (ON LICENSE OF [facility] [place] [address] VIR ALT [Catalytic activity/Vol] 18 U/L Normal <=31 [facility] Comment on above: Performed By: #### C MP ####[facility] ([facility] [place] [address] VIR Anion gap [Moles/Vol] 14 mmol/L Normal 5-15 [facility] Comment on above: Performed By: #### C MP ####[facility] ([place] [address] [place] [address] VIR AST [Catalytic activity/Vol] 29 U/L Normal <=41 [facility] Comment on above: Performed By: #### C MP ####[facility] ([place] [address] [place] [address] VIR Bilirubin [Mass/Vol] 0.8 mg/dL Normal 0.3-1.2 [facility] Comment on above: Performed By: #### C MP ####[facility] ([place] [address] [place] [address] VIR Calcium [Mass/Vol] 9.7 mg/dL Normal 8.5-10.5 [facility] Comment on above: Performed By: #### C MP ####[facility] ([facility] [place] [address] VIR Chloride [Moles/Vol] 96 mmol/L Low 98-109 [facility] Comment on above: Performed By: #### C MP ####[facility] ([place] [address] [place] [address] VIR CO2 [Moles/Vol] 23 mmol/L Normal 22-32 [facility] Comment on above: Performed By: #### C MP ####[facility] ([address] [place] [address] VIR Creatinine [Mass/Vol] 1.17 mg/dL High 0.40-1.00 [facility] Comment on above: Result Comment: METH OD TRACEABLE TO IDMS STANDARD Performed By: #### C MP ####[facility] ([address] [address] VIR GFR/1.73 sq M.predicted among non-blacks MDRD (S/P/Bld) [Vol rate/Area] 47 mL/min/{1.73_m2} Low >=60 [facility] Comment on above: Result Comment: eGFR not reported due to non-numeric value for Creatinine.Reported eGFR is based on theCKD-EPI 2020 equation that doesnot use a race coefficient. Performed By: #### C MP ####[facility] ([address] [place] [address] VIR Glucose [Mass/Vol] 131 mg/dL High 65-99 [facility] Comment on above: Performed By: #### C MP ####[facility] ([address] [place] [address] VIR Potassium [Moles/Vol] 3.9 mmol/L Normal 3.5-5.0 [facility] Comment on above: Performed By: #### C MP ####[facility] ([address] [place] [address] VIR Protein [Mass/Vol] 8.2 g/dL High 6.0-8.0 [facility] Comment on above: Performed By: #### C MP ####[facility] ([address] [place] [address] VIR Sodium [Moles/Vol] 133 mmol/L Low 134-146 [facility] Comment on above: Performed By: #### C MP ####[facility] ([address] [place] [address] VIR Urea nitrogen [Mass/Vol] 23 mg/dL Normal 5-27 [facility] Comment on above: Performed By: #### C MP ####[facility] ([address] [place] [address] ABDOMEN AND PELVIS W CONT on 07-02-2025 CT ABDOMEN AND PELVIS W CONT Normal [facility] CT BRAIN WO CONTon CT BRAIN WO CONT Normal [facility] ER EXTRA URINE CULTUREon ER EXTRA URINE CULTURE ERXUC ER EXTRA URINE CULTURE Cancelled Normal [facility] LACTATE W/ REFLEXon 07-02-20 25 LACTATE W/REFLEX 1.2 mmol/L Normal 0.4-2.0 [facility] Comment on above: Order Comment: Resul t did not trigger repeat Lactate,re-order if needed. Performed By: #### L ACTS ####[facility] ([address] [place] [address] VIR LIPASEon 07-02-2025 Lipase [Catalytic activity/Vol] 28 U/L Normal 17-40 [facility] Comment on above: Performed By: #### L IPA ####[facility] ([address] [place] [address] VIR MAGNESIUMon 07-02-2025 Magnesium [Mass/Vol] 1.4 mg/dL Low 1.8-2.6 [facility] Comment on above: Performed By: #### M G ####[facility] ([address] [place] [address] VIR PHOSPHORUSon 07-02-2025 Phosphate [Mass/Vol] 3.0 mg/dL Normal 2.4-4.9 [facility] Comment on above: Performed By: #### P HOS #### [facility] ([facility]) [address] [place] [address] VIR POCT NURSING URINE MACROSCOP IC UAon 07-02-2025 BILIRUBIN MARYJO Moderate Abnormal Negative [facility] Comment on above: Performed By: #### N UM ####[facility] ([address] [place] [address] VIR BLOOD/HGB MARYJO Negative Normal Negative [facility] Comment on above: Performed By: #### N UM ####[facility] ([address] [place] [address] VIR GLUCOSE MARYJO Negative Normal Negative [facility] Comment on above: Performed By: #### N UM ####[facility] ([address] [place] [address] VIR KETONES MARYJO 40 mg/dL Abnormal Negative [facility] Comment on above: Performed By: #### N UM ####[facility] ([address] [place] [address] VIR LEUKOCYTE ESTERASE MARYJO Negative Normal Negative [facility] Comment on above: Performed By: #### N UM ####[facility] ([address] [place] [address] VIR NITRITE MARYJO Negative Normal Negative [facility] Comment on above: Performed By: #### N UM ####[facility] ([address] [place] [address] VIR PH MARYJO 5.5 Normal 5.0, 6.0, 6.5, 7.0, 7.5, 8.0, 8.5, 5.5 [facility] Comment on above: Performed By: #### N UM ####[facility] ([address] [place] [address] VIR PROTEIN MARYJO 30 mg/dL Abnormal Negative [facility] Comment on above: Performed By: #### N UM ####[facility] ([address] [place] [address] VIR SPECIFIC GRAVITY MARYJO >=1.030 Abnormal 1.010, 1.015, 1.020, 1.025 [facility] Comment on above: Performed By: #### N UM ####[facility] ([address] [place] [address] VIR UROBILINOGEN MARYJO 0.2 E.U./dL Normal [facility] Comment on above: Performed By: #### N UM ####[facility] ([address] [place] [address] VIR Phosphoruson 07-02-2025 Interpretation and review of laboratory results Normal [facility] Phosphate [Mass/Vol] 3 mg/dL 2.4 - 4.9 mg/dL [facility] TROP I, HIGH SENSITIVITY 1 H OURon 07-02-2025 TROPONIN I, HIGH SENSITIVITY 14 ng/L Normal <16 [facility] Comment on above: Performed By: #### T NIHS1 ####[facility] ([address] [address] VIR TROPONIN I, HIGH SENSITIVITY 0 HOURon 07-02-2025 TROPONIN I, HIGH SENSITIVITY 16 ng/L High <16 [facility] Comment on above: Performed By: #### T NIHS0 ####[facility] ([address] [place] [address] VIR URINE CULTUREon 07-02-2025 Bacteria identified Cx Nom (U) CULTURE RESULTS NO GROWTH AT <1000 CFU/mL Normal [facility] Comment on above: Performed By: #### U C ####[facility] (TT)[address] [facility] [address], [place] [address] VIR US PELVIC WITH DUPLEXon 06-15 US PELVIC WITH DUPLEX Normal [facility] XR CHEST 1 VWon 07-02-2025 XR CHEST 1 VW Normal [facility] Urine Cultureon 06-25-2025 Bacteria identified Cx Nom (U) ORGANISM: Citrobacter freundii complex (O:CITFRC) [place] Count >100,000 ORGANISM: Enterococcus faecalis (O:ENTFAC) [place] Count 50,000 Aerobic CLARK Charge (NMIC56) SUSCEPTIBILITY [...] RESISTANT TO ALL B-LACTAM DRUGS. PERFORMED BY: [facility] [address] [address] PATHOLOGIST COSMETOLOGY PROFESSOR MARA LOPEZ M.D. Normal [facility] Comment on above: Performed By: #### C UU #### [facility] [address] [id number] [facility] BEDSIDE GLUCOSEon 06-13-2025 Glucose [Mass/Vol] 336 mg/dL High 65-99 [facility] Comment on above: Performed By: #### B EDG ####[facility] ([address] [address] VIR CBC WITH AUTO DIFFERENTIALon 06-13-2025 BASOPHILS ABSOLUTE COUNT (10*3/UL) BY AUTOMATED COUNT 0.1 10*3/uL Normal 0.0-0.2 [facility] Comment on above: Performed By: #### C BCA ####[address] [address] VIR BASOPHILS RELATIVE PERCENT BY AUTOMATED COUNT 1.4 % Normal [facility] Comment on above: Performed By: #### C BCA ####[address] [address] VIR CELLAVISION DIFFERENTIAL TYPE AUTOMATED DIFFERENTIAL Normal [facility] Comment on above: Performed By: #### C BCA ####[address] [address] VIR Eosinophils (Bld) [#/Vol] 0.3 10*3/uL Normal 0.0-0.4 [facility] Comment on above: Performed By: #### C BCA ####[address] [address] VIR EOSINOPHILS RELATIVE PERCENT BY AUTOMATED COUNT 4.0 % Normal [facility] Comment on above: Performed By: #### C BCA ####[address] [address] VIR Erythrocyte distribution width (RBC) [Ratio] 16.5 % High 11.5-15 [facility] Comment on above: Performed By: #### C BCA ####[facility] ([address] [place] [address] VIR Hematocrit (Bld) [Volume fraction] 28.0 % Low 35-47 [facility] Comment on above: Performed By: #### C BCA ####[facility] ([address] [place] [address] VIR Hemoglobin (Bld) [Mass/Vol] 9.2 g/dL Low 11.7-15.5 [facility] Comment on above: Performed By: #### C BCA ####[facility] ([address] [address] VIR LYMPHOCYTES ABSOLUTE COUNT (10*3/UL) BY AUTOMATED COUNT 2.2 10*3/uL Normal 1.0-3.5 [facility] Comment on above: Performed By: #### C BCA ####[facility] ([address] [address] VIR LYMPHOCYTES RELATIVE PERCENT BY AUTOMATED COUNT 31.9 % Normal [facility] Comment on above: Performed By: #### C BCA ####[facility] ([address] [address] VIR MCH (RBC) [Entitic mass] 26.7 pg Low 27-34 [facility] Comment on above: Performed By: #### C BCA ####[facility] ([address] [place] [address] VIR MCHC (RBC) [Mass/Vol] 33.0 g/dL Normal 32-36 [facility] Comment on above: Performed By: #### C BCA ####[facility] ([address] [address] VIR MCV (RBC) [Entitic vol] 81 fL Normal 80-100 [facility] Comment on above: Performed By: #### C BCA ####[facility] ([address] [address] VIR MONOCYTES ABSOLUTE COUNT (10*3/UL) BY AUTOMATED COUNT 0.8 10*3/uL Normal 0.0-0.9 [facility] Comment on above: Performed By: #### C BCA ####[facility] ([facility])[address] [place] [address].[place] [address] VIR MONOCYTES RELATIVE PERCENT BY AUTOMATED COUNT 12.4 % Normal [facility] Comment on above: Performed By: #### C BCA ####[facility] ([facility])[address] [place] [address].[place] [address] VIR NEUTROPHILS ABSOLUTE COUNT BY AUTOMATED COUNT 3.4 10*3/uL Normal 1.5-6.6 [facility] Comment on above: Performed By: #### C BCA ####[facility] ([address] [place] [address] VIR NEUTROPHILS RELATIVE PERCENT BY AUTOMATED COUNT 50.3 % Normal [facility] Comment on above: Performed By: #### C BCA ####[facility] ([address] [place] [address] VIR Platelet mean volume (Bld) [Entitic vol] 8.2 fL Normal 7-12 [facility] Comment on above: Performed By: #### C BCA ####[facility] ([address] [place] [address] VIR Platelets (Bld) [#/Vol] 226 10*3/uL Normal 150-450 [facility] Comment on above: Performed By: #### C BCA ####[facility] ([address] [place] [address] VIR RBC COUNT 3.45 X10E12/L Low 3.8-5.2 [facility] Comment on above: Performed By: #### C BCA ####[facility] ([address] [place] [address] VIR WBC (Bld) [#/Vol] 6.8 10*3/uL Normal 4-11 [facility] Comment on above: Performed By: #### C BCA ####[facility] ([facility])[address] [place] [address] VIR COMPREHENSIVE METABOLIC PANE Dickson 06-13-2025 Albumin [Mass/Vol] 2.9 g/dL Low 3.2-5.3 [facility] Comment on above: Performed By: #### C MP ####[facility] ([place] [address] [place] [address] VIR ALP [Catalytic activity/Vol] 104 U/L Normal 39-130 [facility] Comment on above: Performed By: #### C MP ####[facility] ([place] [address] [address] VIR ALT [Catalytic activity/Vol] 8 U/L Normal <=31 [facility] Comment on above: Performed By: #### C MP ####[facility] ([place] [address] [place] [address] VIR Anion gap [Moles/Vol] 8 mmol/L Normal 5-15 [facility] Comment on above: Performed By: #### C MP ####[facility] ([place] [address] [place] [address] VIR AST [Catalytic activity/Vol] 14 U/L Normal <=41 [facility] Comment on above: Performed By: #### C MP ####[facility] ([place] [address] [place] [address] VIR Bilirubin [Mass/Vol] 0.3 mg/dL Normal 0.3-1.2 [facility] Comment on above: Performed By: #### C MP ####[facility] ([place] [address] [place] [address] VIR Calcium [Mass/Vol] 8.8 mg/dL Normal 8.5-10.5 [facility] Comment on above: Performed By: #### C MP ####[facility] ([address] [place] [address] VIR Chloride [Moles/Vol] 106 mmol/L Normal 98-109 [facility] Comment on above: Performed By: #### C MP ####[facility] ([address] [place] [address] VIR CO2 [Moles/Vol] 26 mmol/L Normal 22-32 [facility] Comment on above: Performed By: #### C MP ####[facility] ([address] [place] [address] VIR Creatinine [Mass/Vol] 1.28 mg/dL High 0.40-1.00 [facility] Comment on above: Result Comment: METH OD TRACEABLE TO IDMS STANDARD Performed By: #### C MP ####[facility] ([address] [address] VIR GFR/1.73 sq M.predicted among non-blacks MDRD (S/P/Bld) [Vol rate/Area] 43 mL/min/{1.73_m2} Low >=60 [facility] Comment on above: Result Comment: eGFR not reported due to non-numeric value for Creatinine.Reported eGFR is based on theCKD-EPI 2020 equation that doesnot use a race coefficient. Performed By: #### C MP ####[facility] ([address] [place] [address] VIR Glucose [Mass/Vol] 160 mg/dL High 65-99 [facility] Comment on above: Performed By: #### C MP ####[facility] ([address] [place] [address] VIR Potassium [Moles/Vol] 3.8 mmol/L Normal 3.5-5.0 [facility] Comment on above: Performed By: #### C MP ####[facility] ([address] [place] [address] VIR Protein [Mass/Vol] 6.3 g/dL Normal 6.0-8.0 [facility] Comment on above: Performed By: #### C MP ####[facility] ([address] [place] [address] VIR Sodium [Moles/Vol] 140 mmol/L Normal 134-146 [facility] Comment on above: Performed By: #### C MP ####[facility] ([address] [place] [address] VIR Urea nitrogen [Mass/Vol] 18 mg/dL Normal 5-27 [facility] Comment on above: Performed By: #### C MP ####[facility] ([address] [place] [address] VIR MAGNESIUMon 06-13-2025 Magnesium [Mass/Vol] 2.0 mg/dL Normal 1.8-2.6 [facility] Comment on above: Performed By: #### M G ####[facility] ([address] [place] [address] VIR URINALYSISon 06-13-2025 Bilirubin Ql (U) Negative Normal Negative [facility] Comment on above: Performed By: #### U A ####[facility] ([address] [place] [address] VIR BLOOD/HGB Negative Normal Negative [facility] Comment on above: Performed By: #### U A ####[facility] ([address] [place] [address] VIR Color (U) Yellow Normal Yellow [facility] Comment on above: Performed By: #### U A ####[facility] ([address] [place] [address] VIR Glucose Ql (U) Negative Normal Negative, 250 mg/dL [facility] Comment on above: Performed By: #### U A ####[facility] ([address] [address] VIR Ketones Ql (U) Negative Normal Negative [facility] Comment on above: Performed By: #### U A ####[facility] ([address] [address] VIR Leukocyte esterase Test strip Ql (U) Negative Normal Negative [facility] Comment on above: Performed By: #### U A ####[facility] ([address] [address] VIR MUCOUS Present Abnormal None [facility] Comment on above: Performed By: #### U A ####[facility] ([address] [address] VIR Nitrite Ql (U) Negative Normal Negative [facility] Comment on above: Performed By: #### U A ####[facility] ([address] [address] VIR PH,URINE 6.0 Normal 5.0-8.5 [facility] Comment on above: Performed By: #### U A ####[facility] ([address] [address] VIR Protein Ql (U) Trace Abnormal Negative [facility] Comment on above: Performed By: #### U A ####[facility] ([address] [address] VIR Specific gravity (U) [Rel density] 1.025 Normal 1.003-1.03 5 [facility] Comment on above: Performed By: #### U A ####[facility] ([address] [address] VIR TURBIDITY Clear Normal Clear [facility] Comment on above: Performed By: #### U A ####[facility] ([address] [place] [address] VIR UROBILINOGEN 0.2 eu/dL Normal 0.2 eu/dL, 1.0 eu/dL [facility] Comment on above: Performed By: #### U A ####[facility] ([address] [place] [address] VIR URINE CULTUREon 06-13-2025 Bacteria identified Cx Nom (U) CULTURE RESULTS <10,000 ORGANISMS/mL NORMAL URO GENITAL BAILEY Normal [facility] Comment on above: Performed By: #### U C ####[facility] (TT)[address], [place] [address] VIR BEDSIDE GLUCOSEon 06-12-2025 Glucose [Mass/Vol] 229 mg/dL [address] Comment on above: Performed By: #### B EDG ####[facility] ([address] [address] VIR Glucose [Mass/Vol] 229 mg/dL [address] Comment on above: Performed By: #### B EDG ####[facility] ([address] [place] [address] VIR Glucose [Mass/Vol] 262 mg/dL [address] Comment on above: Performed By: #### B EDG ####[facility] ([address] [address] VIR Glucose [Mass/Vol] 184 mg/dL [address] Comment on above: Performed By: #### B EDG ####[facility] ([address] [place] [address] VIR CBC WITH AUTO DIFFERENTIALon 07-29-2025 BASOPHILS ABSOLUTE COUNT (10*3/UL) BY AUTOMATED COUNT 0.1 10*3/uL Normal 0.0-0.2 [facility] Comment on above: Performed By: #### C BCA ####[facility] ([address] [address] VIR BASOPHILS RELATIVE PERCENT BY AUTOMATED COUNT 1.3 % Normal [facility] Comment on above: Performed By: #### C BCA ####[facility] ([address] [address] VIR CELLAVISION DIFFERENTIAL TYPE AUTOMATED DIFFERENTIAL Normal [facility] Comment on above: Performed By: #### C BCA ####[facility] ([address] [address] VIR Eosinophils (Bld) [#/Vol] 0.3 10*3/uL Normal 0.0-0.4 [facility] Comment on above: Performed By: #### C BCA ####[facility] ([address] [address] VIR EOSINOPHILS RELATIVE PERCENT BY AUTOMATED COUNT 3.4 % Normal [facility] Comment on above: Performed By: #### C BCA ####[facility] ([address] [address] VIR Erythrocyte distribution width (RBC) [Ratio] 16.1 % High 11.5-15 [facility] Comment on above: Performed By: #### C BCA ####[facility] ([address] [address] VIR Hematocrit (Bld) [Volume fraction] 32.8 % Low 35-47 [facility] Comment on above: Performed By: #### C BCA ####[facility] ([address] [address] VIR Hemoglobin (Bld) [Mass/Vol] 10.9 g/dL Low 11.7-15.5 [facility] Comment on above: Performed By: #### C BCA ####[facility] ([address] [address] VIR LYMPHOCYTES ABSOLUTE COUNT (10*3/UL) BY AUTOMATED COUNT 2.2 10*3/uL Normal 1.0-3.5 [facility] Comment on above: Performed By: #### C BCA ####[facility] ([address] [address] VIR LYMPHOCYTES RELATIVE PERCENT BY AUTOMATED COUNT 29.1 % Normal [facility] Comment on above: Performed By: #### C BCA ####[facility] ([address] [address] VIR MCH (RBC) [Entitic mass] 26.5 pg Low 27-34 [facility] Comment on above: Performed By: #### C BCA ####[facility] ([address] [address] VIR MCHC (RBC) [Mass/Vol] 33.2 g/dL Normal 32-36 [facility] Comment on above: Performed By: #### C BCA ####[facility] ([address] [address] VIR MCV (RBC) [Entitic vol] 80 fL Normal 80-100 [facility] Comment on above: Performed By: #### C BCA ####[facility] ([address] [address] VIR MONOCYTES ABSOLUTE COUNT (10*3/UL) BY AUTOMATED COUNT 1.0 10*3/uL High 0.0-0.9 [facility] Comment on above: Performed By: #### C BCA ####[facility] ([address] [address] VIR MONOCYTES RELATIVE PERCENT BY AUTOMATED COUNT 13.9 % Normal [facility] Comment on above: Performed By: #### C BCA ####[facility] ([address] [place] [address] VIR NEUTROPHILS ABSOLUTE COUNT BY AUTOMATED COUNT 3.9 10*3/uL Normal 1.5-6.6 [facility] Comment on above: Performed By: #### C BCA ####[facility] ([address] [place] [address] VIR NEUTROPHILS RELATIVE PERCENT BY AUTOMATED COUNT 52.3 % Normal [facility] Comment on above: Performed By: #### C BCA ####[facility] ([address] [address] VIR Platelet mean volume (Bld) [Entitic vol] 9.1 fL Normal 7-12 [facility] Comment on above: Performed By: #### C BCA ####[facility] ([address] [address] VIR Platelets (Bld) [#/Vol] 233 10*3/uL Normal 150-450 [facility] Comment on above: Performed By: #### C BCA ####[facility] ([address] [address] VIR RBC COUNT 4.11 X10E12/L Normal 3.8-5.2 [facility] Comment on above: Performed By: #### C BCA ####[facility] ([address] [address] VIR WBC (Bld) [#/Vol] 7.4 10*3/uL Normal 4-11 [facility] Comment on above: Performed By: #### C BCA ####[facility] ([address] [address] VIR COMPREHENSIVE METABOLIC PANE Dickson 06-12-2025 Albumin [Mass/Vol] 3.2 g/dL Normal 3.2-5.3 [facility] Comment on above: Performed By: #### C MP ####[facility] ([place] [address] [place] [address] VIR ALP [Catalytic activity/Vol] 115 U/L Normal 39-130 [facility] Comment on above: Performed By: #### C MP ####[facility] ([address] [place] [address] VIR ALT [Catalytic activity/Vol] 12 U/L Normal <=31 [facility] Comment on above: Performed By: #### C MP ####[facility] ([place] [address] [place] [address] VIR Anion gap [Moles/Vol] 11 mmol/L Normal 5-15 [facility] Comment on above: Performed By: #### C MP ####[facility] ([address] [place] [address] VIR AST [Catalytic activity/Vol] 21 U/L Normal <=41 [facility] Comment on above: Performed By: #### C MP ####[facility] ([address] [address] VIR Bilirubin [Mass/Vol] 0.6 mg/dL Normal 0.3-1.2 [facility] Comment on above: Performed By: #### C MP ####[facility] ([place] [address] [place] [address] VIR Calcium [Mass/Vol] 8.9 mg/dL Normal 8.5-10.5 [facility] Comment on above: Performed By: #### C MP ####[facility] ([place] [address] [place] [place] [address] VIR Chloride [Moles/Vol] 101 mmol/L Normal 98-109 [facility] Comment on above: Performed By: #### C MP ####[facility] ([address] [place] [address] VIR CO2 [Moles/Vol] 25 mmol/L Normal 22-32 [facility] Comment on above: Performed By: #### C MP ####[facility] ([address] [place] [address] VIR Creatinine [Mass/Vol] 1.21 mg/dL High 0.40-1.00 [facility] Comment on above: Result Comment: METH OD TRACEABLE TO IDMS STANDARD Performed By: #### C MP ####[facility] ([address] [place] [address] VIR GFR/1.73 sq M.predicted among non-blacks MDRD (S/P/Bld) [Vol rate/Area] 46 mL/min/{1.73_m2} Low >=60 [facility] Comment on above: Result Comment: eGFR not reported due to non-numeric value for Creatinine.Reported eGFR is based on theCKD-EPI 1 equation that doesnot use a race coefficient. Performed By: #### C MP ####[facility] ([address] [place] [address] VIR Glucose [Mass/Vol] 157 mg/dL High 65-99 [facility] Comment on above: Performed By: #### C MP ####[facility] ([address] [place] [address] VIR Potassium [Moles/Vol] 4.1 mmol/L Normal 3.5-5.0 [facility] Comment on above: Performed By: #### C MP ####[facility] ([address] [place] [address] VIR Protein [Mass/Vol] 7.2 g/dL Normal 6.0-8.0 [facility] Comment on above: Performed By: #### C MP ####[address] [place] [address] VIR Sodium [Moles/Vol] 137 mmol/L Normal 134-146 [facility] Comment on above: Performed By: #### C MP ####[facility] ([address] [place] [address] VIR Urea nitrogen [Mass/Vol] 18 mg/dL Normal 5-27 [facility] Comment on above: Performed By: #### C MP ####[facility] ([address] [place] [address] VIR MAGNESIUMon 06-12-2025 Magnesium [Mass/Vol] 2.4 mg/dL Normal 1.8-2.6 [facility] Comment on above: Performed By: #### M G ####[facility] ([address] [place] [address] VIR APTTon 06-11-2025 aPTT Coag (Bld) [Time] 27 s Normal 26-37 [facility] Comment on above: Performed By: #### P TT ####[facility] ([address] [place] [address] VIR B-TYPE NATRIURETIC PEPTIDEon 06-11-2025 Natriuretic peptide B (Bld) [Mass/Vol] 161 pg/mL High <=100 [facility] Comment on above: Performed By: #### B JACK OF ALL TRADES ####[facility] ([address] [place] [address] VIR BEDSIDE GLUCOSEon 06-11-2025 Glucose [Mass/Vol] 177 mg/dL High 65-99 [facility] Comment on above: Performed By: #### B EDG ####[facility] ([address] [place] [address] VIR Glucose [Mass/Vol] 197 mg/dL High 65-99 [facility] Comment on above: Performed By: #### B EDG ####[facility] ([address] [place] [address] VIR Glucose [Mass/Vol] 151 mg/dL High [address] [place] [address] Comment on above: Performed By: #### B EDG ####[facility] ([address] [place] [address] VIR Glucose [Mass/Vol] 185 mg/dL High 65-99 [facility] Comment on above: Performed By: #### B EDG ####[facility] ([address] [address] VIR CBC WITH AUTO DIFFERENTIALon 06-11-2025 BASOPHILS ABSOLUTE COUNT (10*3/UL) BY AUTOMATED COUNT 0.0 10*3/uL Normal 0.0-0.2 [facility] Comment on above: Performed By: #### C BCA ####[facility] ([address] [address] VIR BASOPHILS RELATIVE PERCENT BY AUTOMATED COUNT 0.4 % Normal [facility] Comment on above: Performed By: #### C BCA ####[facility] ([address] [address] VIR CELLAVISION DIFFERENTIAL TYPE AUTOMATED DIFFERENTIAL Normal [facility] Comment on above: Performed By: #### C BCA ####[facility] ([address] [place] [address] VIR Eosinophils (Bld) [#/Vol] 0.1 10*3/uL Normal 0.0-0.4 [facility] Comment on above: Performed By: #### C BCA ####[facility] ([address] [address] VIR EOSINOPHILS RELATIVE PERCENT BY AUTOMATED COUNT 0.6 % Normal [facility] Comment on above: Performed By: #### C BCA ####[facility] ([address] [place] [address] VIR Erythrocyte distribution width (RBC) [Ratio] 16.2 % High 11.5-15 [facility] Comment on above: Performed By: #### C BCA ####[facility] ([address] [address] VIR Hematocrit (Bld) [Volume fraction] 31.6 % Low 35-47 [facility] Comment on above: Performed By: #### C BCA ####[facility] ([address] [address] VIR Hemoglobin (Bld) [Mass/Vol] 10.4 g/dL Low 11.7-15.5 [facility] Comment on above: Performed By: #### C BCA ####[facility] ([address] [address] VIR LYMPHOCYTES ABSOLUTE COUNT (10*3/UL) BY AUTOMATED COUNT 1.4 10*3/uL Normal 1.0-3.5 [facility] Comment on above: Performed By: #### C BCA ####[facility] ([address] [address] VIR LYMPHOCYTES RELATIVE PERCENT BY AUTOMATED COUNT 13.4 % Normal [facility] Comment on above: Performed By: #### C BCA ####[facility] ([address] [address] VIR MCH (RBC) [Entitic mass] 26.3 pg Low 27-34 [facility] Comment on above: Performed By: #### C BCA ####[facility] ([address] [address] VIR MCHC (RBC) [Mass/Vol] 32.8 g/dL Normal 32-36 [facility] Comment on above: Performed By: #### C BCA ####[facility] ([address] [address] VIR MCV (RBC) [Entitic vol] 80 fL Normal 80-100 [facility] Comment on above: Performed By: #### C BCA ####[facility] ([address] [address] VIR MONOCYTES ABSOLUTE COUNT (10*3/UL) BY AUTOMATED COUNT 0.9 10*3/uL Normal 0.0-0.9 [facility] Comment on above: Performed By: #### C BCA ####[facility] ([address] [address] VIR MONOCYTES RELATIVE PERCENT BY AUTOMATED COUNT 8.8 % Normal [facility] Comment on above: Performed By: #### C BCA ####[facility] ([address] [address] VIR NEUTROPHILS ABSOLUTE COUNT BY AUTOMATED COUNT 8.3 10*3/uL High 1.5-6.6 [facility] Comment on above: Performed By: #### C BCA ####[facility] ([address] [address] VIR NEUTROPHILS RELATIVE PERCENT BY AUTOMATED COUNT 76.8 % Normal [facility] Comment on above: Performed By: #### C BCA ####[facility] ([address] [address] VIR Platelet mean volume (Bld) [Entitic vol] 8.2 fL Normal 7-12 [facility] Comment on above: Performed By: #### C BCA ####[facility] ([address] [address] VIR Platelets (Bld) [#/Vol] 318 10*3/uL Normal 150-450 [facility] Comment on above: Performed By: #### C BCA ####[facility] ([address] [address] VIR RBC COUNT 3.94 X10E12/L Normal 3.8-5.2 [facility] Comment on above: Performed By: #### C BCA ####[facility] ([address] [place] [address] VIR WBC (Bld) [#/Vol] 10.8 10*3/uL Normal 4-11 [facility] Comment on above: Performed By: #### C BCA ####[facility] ([address] [place] [address] VIR CK TOTALon 06-11-2025 CPK 81 U/L Normal 24-170 [facility] Comment on above: Performed By: #### C PK ####[facility] ([address] [place] [address] VIR COMPREHENSIVE METABOLIC PANE Dickson 06-11-2025 Albumin [Mass/Vol] 3.8 g/dL Normal 3.2-5.3 [facility] Comment on above: Performed By: #### C MP ####[facility] ([address] [place] [address] VIR ALP [Catalytic activity/Vol] 128 U/L Normal 39-130 [facility] Comment on above: Performed By: #### C MP ####[facility] ([address] [place] [address] VIR ALT [Catalytic activity/Vol] 14 U/L Normal <=31 [facility] Comment on above: Performed By: #### C MP ####[facility] ([address] [place] [address] VIR Anion gap [Moles/Vol] 15 mmol/L Normal 5-15 [facility] Comment on above: Performed By: #### C MP ####[facility] ([address] [place] [address] VIR AST [Catalytic activity/Vol] 25 U/L Normal <=41 [facility] Comment on above: Performed By: #### C MP ####[facility] ([address] [place] [address] VIR Bilirubin [Mass/Vol] 1.1 mg/dL Normal 0.3-1.2 [facility] Comment on above: Performed By: #### C MP ####[facility] ([address] [place] [address] VIR Calcium [Mass/Vol] 9.1 mg/dL Normal 8.5-10.5 [facility] Comment on above: Performed By: #### C MP ####[facility] ([address] [place] [address] VIR Chloride [Moles/Vol] 98 mmol/L Normal 98-109 [facility] Comment on above: Performed By: #### C MP ####[facility] ([address] [place] [address] VIR CO2 [Moles/Vol] 20 mmol/L Low 22-32 [facility] Comment on above: Performed By: #### C MP ####[facility] ([address] [place] [address] VIR Creatinine [Mass/Vol] 1.32 mg/dL High 0.40-1.00 [facility] Comment on above: Result Comment: METH OD TRACEABLE TO IDMS STANDARD Performed By: #### C MP ####[facility] ([address] [place] [address] VIR GFR/1.73 sq M.predicted among non-blacks MDRD (S/P/Bld) [Vol rate/Area] 41 mL/min/{1.73_m2} Low >=60 [facility] Comment on above: Result Comment: eGFR not reported due to non-numeric value for Creatinine.Reported eGFR is based on theCKD-EPI 2020 equation that doesnot use a race coefficient. Performed By: #### C MP ####[facility] ([address] [place] [address] VIR Glucose [Mass/Vol] 209 mg/dL High 65-99 [facility] Comment on above: Performed By: #### C MP ####[facility] ([address] [place] [address] VIR Potassium [Moles/Vol] 3.8 mmol/L Normal 3.5-5.0 [facility] Comment on above: Performed By: #### C MP ####[facility] ([address] [place] [address] VIR Protein [Mass/Vol] 8.1 g/dL High 6.0-8.0 [facility] Comment on above: Performed By: #### C MP ####[facility] ([address] [place] [address] VIR Sodium [Moles/Vol] 133 mmol/L Low 134-146 [facility] Comment on above: Performed By: #### C MP ####[facility] ([address] [place] [address] VIR Urea nitrogen [Mass/Vol] 19 mg/dL Normal 5-27 [facility] Comment on above: Performed By: #### C MP ####[facility] ([address] [place] [address] ABDOMEN AND PELVIS WO CON Ton 06-11-2025 CT ABDOMEN AND PELVIS WO CONT Normal [facility] HEMOGLOBINon 06-11-2025 Hemoglobin (Bld) [Mass/Vol] 10.3 g/dL Low 11.7-15.5 [facility] Comment on above: Performed By: #### H GB ####[facility] ([address] [place] [address] VIR MAGNESIUMon 06-11-2025 Magnesium [Mass/Vol] 1.7 mg/dL Low 1.8-2.6 [facility] Comment on above: Performed By: #### M G ####[facility] ([address] [place] [address] VIR Magnesium [Mass/Vol] 1.6 mg/dL Low 1.8-2.6 [facility] Comment on above: Performed By: #### M G ####[facility] ([address] [place] [address] VIR PLATELET COUNTon 06-11-2025 Platelet mean volume (Bld) [Entitic vol] 8.7 fL Normal 7-12 [facility] Comment on above: Performed By: #### P LTCT ####[facility] ([address] [place] [address] VIR Platelets (Bld) [#/Vol] 287 10*3/uL Normal 150-450 [facility] Comment on above: Performed By: #### P LTCT ####[facility] ([address] [place] [address] VIR THYROID PROFILE INCLUDES TSH FT4on 06-11-2025 Free T4 [Mass/Vol] 1.59 ng/dL Normal 0.61-1.60 [facility] Comment on above: Performed By: #### T HYR ####[facility] ([address] [place] [address] VIR TSH 2.32 uIU/mL Normal 0.49-4.67 [facility] Comment on above: Performed By: #### T HYR ####[facility] ([address] [place] [address] VIR TROP I, HIGH SENSITIVITY 1 H OURon 06-11-2025 TROPONIN I, HIGH SENSITIVITY 13 ng/L Normal <16 [facility] Comment on above: Performed By: #### T NIHS1 ####[facility] ([address] [address] VIR TROPONIN I, HIGH SENSITIVITY 0 HOURon 06-11-2025 TROPONIN I, HIGH SENSITIVITY 12 ng/L Normal <16 [facility] Comment on above: Performed By: #### T NIHS0 ####[facility] ([facility])[address] [place] [address] VIR XR CHEST 1 VWon 06-11-2025 XR CHEST 1 VW Normal [facility] CBC WITH AUTO DIFFERENTIALon 06-10-2025 BASOPHILS ABSOLUTE COUNT (10*3/UL) BY AUTOMATED COUNT 0.1 10*3/uL Normal 0.0-0.2 [facility] Comment on above: Performed By: #### C BCA ####[facility] ([address] [address] VIR BASOPHILS RELATIVE PERCENT BY AUTOMATED COUNT 0.5 % Normal [facility] Comment on above: Performed By: #### C BCA ####[facility] ([address] [address] VIR CELLAVISION DIFFERENTIAL TYPE AUTOMATED DIFFERENTIAL Normal [facility] Comment on above: Performed By: #### C BCA ####[facility] ([address] [address] VIR Eosinophils (Bld) [#/Vol] 0.1 10*3/uL Normal 0.0-0.4 [facility] Comment on above: Performed By: #### C BCA ####[facility] ([address] [address] VIR EOSINOPHILS RELATIVE PERCENT BY AUTOMATED COUNT 0.8 % Normal [facility] Comment on above: Performed By: #### C BCA ####[facility] ([address] [address] VIR Erythrocyte distribution width (RBC) [Ratio] 15.9 % High 11.5-15 [facility] Comment on above: Performed By: #### C BCA ####[facility] ([address] [address] VIR Hematocrit (Bld) [Volume fraction] 32.3 % Low 35-47 [facility] Comment on above: Performed By: #### C BCA ####[facility] ([address] [address] VIR Hemoglobin (Bld) [Mass/Vol] 10.7 g/dL Low 11.7-15.5 [facility] Comment on above: Performed By: #### C BCA ####[facility] ([address] [address] VIR LYMPHOCYTES ABSOLUTE COUNT (10*3/UL) BY AUTOMATED COUNT 1.3 10*3/uL Normal 1.0-3.5 [facility] Comment on above: Performed By: #### C BCA ####[facility] ([address] [address] VIR LYMPHOCYTES RELATIVE PERCENT BY AUTOMATED COUNT 12.4 % Normal [facility] Comment on above: Performed By: #### C BCA ####[facility] ([address] [address] VIR MCH (RBC) [Entitic mass] 26.7 pg Low 27-34 [facility] Comment on above: Performed By: #### C BCA ####[facility] ([address] [address] VIR MCHC (RBC) [Mass/Vol] 33.3 g/dL Normal 32-36 [facility] Comment on above: Performed By: #### C BCA ####[facility] ([address] [address] VIR MCV (RBC) [Entitic vol] 80 fL Normal 80-100 [facility] Comment on above: Performed By: #### C BCA ####[facility] ([address] [place] [address] VIR MONOCYTES ABSOLUTE COUNT (10*3/UL) BY AUTOMATED COUNT 0.8 10*3/uL Normal 0.0-0.9 [facility] Comment on above: Performed By: #### C BCA ####[facility] ([address] [place] [address] VIR MONOCYTES RELATIVE PERCENT BY AUTOMATED COUNT 8.1 % Normal [facility] Comment on above: Performed By: #### C BCA ####[facility] ([address] [place] [address] VIR NEUTROPHILS ABSOLUTE COUNT BY AUTOMATED COUNT 8.1 10*3/uL High 1.5-6.6 [facility] Comment on above: Performed By: #### C BCA ####[facility] ([address] [place] [address] VIR NEUTROPHILS RELATIVE PERCENT BY AUTOMATED COUNT 78.2 % Normal [facility] Comment on above: Performed By: #### C BCA ####[facility] ([address] [place] [address] VIR Platelet mean volume (Bld) [Entitic vol] 7.7 fL Normal 7-12 [facility] Comment on above: Performed By: #### C BCA ####[facility] ([address] [place] [address] VIR Platelets (Bld) [#/Vol] 305 10*3/uL Normal 150-450 [facility] Comment on above: Performed By: #### C BCA ####[facility] ([address] [place] [address] VIR RBC COUNT 4.02 X10E12/L Normal 3.8-5.2 [facility] Comment on above: Performed By: #### C BCA ####[facility] ([address] [place] [address] VIR WBC (Bld) [#/Vol] 10.3 10*3/uL Normal 4-11 [facility] Comment on above: Performed By: #### C BCA ####[facility] ([address] [place] [address] VIR COMPREHENSIVE METABOLIC PANE Dickson 06-10-2025 Albumin [Mass/Vol] 3.7 g/dL Normal 3.2-5.3 [facility] Comment on above: Performed By: #### C MP ####[facility] ([address] [place] [address] VIR ALP [Catalytic activity/Vol] 130 U/L Normal 39-130 [facility] Comment on above: Performed By: #### C MP ####[address] [place] [address] VIR ALT [Catalytic activity/Vol] 15 U/L Normal <=31 [facility] Comment on above: Performed By: #### C MP ####[facility] ([address] [place] [address] VIR Anion gap [Moles/Vol] 15 mmol/L Normal 5-15 [facility] Comment on above: Performed By: #### C MP ####[facility] ([address] [place] [address] VIR AST [Catalytic activity/Vol] 21 U/L Normal <=41 [facility] Comment on above: Performed By: #### C MP ####[facility] ([address] [place] [address] VIR Bilirubin [Mass/Vol] 1.2 mg/dL Normal 0.3-1.2 [facility] Comment on above: Performed By: #### C MP ####[facility] ([address] [place] [address] VIR Calcium [Mass/Vol] 9.6 mg/dL Normal 8.5-10.5 [facility] Comment on above: Performed By: #### C MP ####[facility] ([facility])[address] [place] [address].[place] [address] VIR Chloride [Moles/Vol] 97 mmol/L Low 98-109 [facility] Comment on above: Performed By: #### C MP ####[facility] ([facility])[address] [place] [address] [place] [address] VIR CO2 [Moles/Vol] 23 mmol/L Normal 22-32 [facility] Comment on above: Performed By: #### C MP ####[facility] ([address] [place] [address] VIR Creatinine [Mass/Vol] 1.36 mg/dL High 0.40-1.00 [facility] Comment on above: Result Comment: METH OD TRACEABLE TO IDMS STANDARD Performed By: #### C MP ####[facility] ([address] [place] [address] VIR GFR/1.73 sq M.predicted among non-blacks MDRD (S/P/Bld) [Vol rate/Area] 40 mL/min/{1.73_m2} Low >=60 [facility] Comment on above: Result Comment: eGFR not reported due to non-numeric value for Creatinine.Reported eGFR is based on theCKD-EPI 2020 equation that doesnot use a race coefficient. Performed By: #### C MP ####[facility] ([address] [place] [address] VIR Glucose [Mass/Vol] 204 mg/dL High 65-99 [facility] Comment on above: Performed By: #### C MP ####[facility] ([address] [place] [address] VIR Potassium [Moles/Vol] 4.9 mmol/L Normal 3.5-5.0 [facility] Comment on above: Performed By: #### C MP ####[facility] ([address] [place] [address] VIR Protein [Mass/Vol] 8.3 g/dL High 6.0-8.0 [facility] Comment on above: Performed By: #### C MP ####[facility] ([address] [place] [address] VIR Sodium [Moles/Vol] 135 mmol/L Normal 134-146 [facility] Comment on above: Performed By: #### C MP ####[address] [place] [address] VIR Urea nitrogen [Mass/Vol] 18 mg/dL Normal 5-27 [facility] Comment on above: Performed By: #### C MP ####[facility] ([address] [place] [address] VIR POCT NURSING URINE MACROSCOP IC UAon 06-10-2025 BILIRUBIN MARYJO Moderate Abnormal Negative [facility] Comment on above: Performed By: #### N UM ####[address] [place] [address] VIR BLOOD/HGB MARYJO Trace Abnormal Negative [facility] Comment on above: Performed By: #### N UM ####[facility] ([address] [place] [address] VIR GLUCOSE MARYJO Negative Normal Negative [facility] Comment on above: Performed By: #### N UM ####[facility] ([address] [place] [address] VIR KETONES MARYJO 40 mg/dL Abnormal Negative [facility] Comment on above: Performed By: #### N UM ####[facility] ([address] [place] [address] VIR LEUKOCYTE ESTERASE MARYJO Trace Abnormal Negative [facility] Comment on above: Performed By: #### N UM ####[facility])[address] [place] [address] [place] [address] VIR NITRITE MARYJO Negative Normal Negative [facility] Comment on above: Performed By: #### N UM ####[facility])[address] [place] [address] [place] [address] VIR PH MARYJO 5.5 Normal 5.0, 6.0, 6.5, 7.0, 7.5, 8.0, 8.5, 5.5 [facility] Comment on above: Performed By: #### N UM ####[facility] ([address] [place] [address] VIR PROTEIN MARYJO 100 mg/dL Abnormal Negative [facility] Comment on above: Performed By: #### N UM ####[facility])[address] [place] [address] [place] [address] VIR SPECIFIC GRAVITY MARYJO >=1.030 Abnormal 1.010, 1.015, 1.020, 1.025 [facility] Comment on above: Performed By: #### N UM ####[facility] ([address] [place] [address] VIR UROBILINOGEN MARYJO 0.2 E.U./dL Normal [facility] Comment on above: Performed By: #### N UM ####[facility] ([address] [place] [address] VIR URINE CULTUREon 06-10-2025 Bacteria identified Cx Nom (U) CULTURE RESULTS MULTIPLE SPECIES PRESENT. PROBABLE COLLECTION CONTAMINATION. SUGGEST REPEAT SPECIMEN. Normal [facility] Comment on above: Performed By: #### U C ####[facility] (TT)[phone] [facility] [address] [address] VIR B-TYPE NATRIURETIC PEPTIDEon 06-08-2025 Natriuretic peptide B (Bld) [Mass/Vol] 85 pg/mL Normal <=100 [facility] Comment on above: Performed By: #### B JACK OF ALL TRADES ####[facility] ([address] [place] [address] VIR BASIC METABOLIC PANELon 05-16 Anion gap [Moles/Vol] 10 mmol/L Normal 5-15 [facility] Comment on above: Performed By: #### B MP ####[facility] ([address] [place] [address] VIR Calcium [Mass/Vol] 9.3 mg/dL Normal 8.5-10.5 [facility] Comment on above: Performed By: #### B MP ####[facility] ([address] [place] [address] VIR Chloride [Moles/Vol] 101 mmol/L Normal 98-109 [facility] Comment on above: Performed By: #### B MP ####[facility] ([address] [place] [address] VIR CO2 [Moles/Vol] 24 mmol/L Normal 22-32 [facility] Comment on above: Performed By: #### B MP ####[facility] ([address] [place] [address] VIR Creatinine [Mass/Vol] 1.31 mg/dL High 0.40-1.00 [facility] Comment on above: Result Comment: METH OD TRACEABLE TO IDMS STANDARD Performed By: #### B MP ####[facility] ([address] [place] [address] VIR GFR/1.73 sq M.predicted among non-blacks MDRD (S/P/Bld) [Vol rate/Area] 42 mL/min/{1.73_m2} Low >=60 [facility] Comment on above: Result Comment: eGFR not reported due to non-numeric value for Creatinine.Reported eGFR is based on theCKD-EPI 2020 equation that doesnot use a race coefficient. Performed By: #### B MP ####[facility] ([address] [address] VIR Glucose [Mass/Vol] 174 mg/dL High 65-99 [facility] Comment on above: Performed By: #### B MP ####[facility] ([address] [address] VIR Potassium [Moles/Vol] 4.2 mmol/L Normal 3.5-5.0 [facility] Comment on above: Performed By: #### B MP ####[address] [address] VIR Sodium [Moles/Vol] 135 mmol/L Normal 134-146 [facility] Comment on above: Performed By: #### B MP ####[facility] ([address] [address] VIR Urea nitrogen [Mass/Vol] 14 mg/dL Normal 5-27 [facility] Comment on above: Performed By: #### B MP ####[facility] ([address] [address] VIR CBC WITH AUTO DIFFERENTIALon 06-08-2025 BASOPHILS ABSOLUTE COUNT (10*3/UL) BY AUTOMATED COUNT 0.0 10*3/uL Normal 0.0-0.2 [facility] Comment on above: Performed By: #### C BCA ####[facility] ([address] [address] VIR BASOPHILS RELATIVE PERCENT BY AUTOMATED COUNT 0.5 % Normal [facility] Comment on above: Performed By: #### C BCA ####[facility] ([address] [address] VIR CELLAVISION DIFFERENTIAL TYPE AUTOMATED DIFFERENTIAL Normal [facility] Comment on above: Performed By: #### C BCA ####[facility] ([address] [address] VIR Eosinophils (Bld) [#/Vol] 0.2 10*3/uL Normal 0.0-0.4 [facility] Comment on above: Performed By: #### C BCA ####[facility] ([address] [address] VIR EOSINOPHILS RELATIVE PERCENT BY AUTOMATED COUNT 2.4 % Normal [facility] Comment on above: Performed By: #### C BCA ####[facility] ([address] [address] VIR Erythrocyte distribution width (RBC) [Ratio] 15.7 % High 11.5-15 [facility] Comment on above: Performed By: #### C BCA ####[facility] ([address] [address] VIR Hematocrit (Bld) [Volume fraction] 32.1 % Low 35-47 [facility] Comment on above: Performed By: #### C BCA ####[facility] ([address] [address] VIR Hemoglobin (Bld) [Mass/Vol] 10.5 g/dL Low 11.7-15.5 [facility] Comment on above: Performed By: #### C BCA ####[facility] ([address] [address] VIR LYMPHOCYTES ABSOLUTE COUNT (10*3/UL) BY AUTOMATED COUNT 1.5 10*3/uL Normal 1.0-3.5 [facility] Comment on above: Performed By: #### C BCA ####[facility] ([address] [address] VIR LYMPHOCYTES RELATIVE PERCENT BY AUTOMATED COUNT 18.7 % Normal [facility] Comment on above: Performed By: #### C BCA ####[facility] ([address] [address] VIR MCH (RBC) [Entitic mass] 26.4 pg Low 27-34 [facility] Comment on above: Performed By: #### C BCA ####[facility] ([address] [address] VIR MCHC (RBC) [Mass/Vol] 32.7 g/dL Normal 32-36 [facility] Comment on above: Performed By: #### C BCA ####[facility] ([address] [address] VIR MCV (RBC) [Entitic vol] 81 fL Normal 80-100 [facility] Comment on above: Performed By: #### C BCA ####[facility] ([address] [address] VIR MONOCYTES ABSOLUTE COUNT (10*3/UL) BY AUTOMATED COUNT 0.7 10*3/uL Normal 0.0-0.9 [facility] Comment on above: Performed By: #### C BCA ####[facility] ([address] [address] VIR MONOCYTES RELATIVE PERCENT BY AUTOMATED COUNT 9.1 % Normal [facility] Comment on above: Performed By: #### C BCA ####[facility] ([address] [address] VIR NEUTROPHILS ABSOLUTE COUNT BY AUTOMATED COUNT 5.6 10*3/uL Normal 1.5-6.6 [facility] Comment on above: Performed By: #### C BCA ####[facility] ([address] [address] VIR NEUTROPHILS RELATIVE PERCENT BY AUTOMATED COUNT 69.3 % Normal [facility] Comment on above: Performed By: #### C BCA ####[facility] ([address] [place] [address] VIR Platelet mean volume (Bld) [Entitic vol] 8.0 fL Normal 7-12 [facility] Comment on above: Performed By: #### C BCA ####[facility] ([address] [place] [address] VIR Platelets (Bld) [#/Vol] 317 10*3/uL Normal 150-450 [facility] Comment on above: Performed By: #### C BCA ####[facility] ([address] [place] [address] VIR RBC COUNT 3.98 X10E12/L Normal 3.8-5.2 [facility] Comment on above: Performed By: #### C BCA ####[facility] ([address] [place] [address] VIR WBC (Bld) [#/Vol] 8.1 10*3/uL Normal 4-11 [facility] Comment on above: Performed By: #### C BCA ####[facility] ([address] [place] [address] VIR MAGNESIUMon 06-08-2025 Magnesium [Mass/Vol] 1.8 mg/dL Normal 1.8-2.6 [facility] Comment on above: Performed By: #### M G ####[facility] ([address] [place] [address] VIR POCT NURSING URINE MACROSCOP IC UAon 06-08-2025 BILIRUBIN MARYJO Negative Normal Negative [facility] Comment on above: Performed By: #### N UM ####[facility] ([address] [place] [address] VIR BLOOD/HGB MARYJO Negative Normal Negative [facility] Comment on above: Performed By: #### N UM ####[facility] ([place] [address] [place] [address] VIR GLUCOSE MARYJO Negative Normal Negative [facility] Comment on above: Performed By: #### N UM ####[facility] ([address] [place] [address] VIR KETONES MARYJO Trace Abnormal Negative [facility] Comment on above: Performed By: #### N UM ####[facility] ([address] [place] [address] VIR LEUKOCYTE ESTERASE MARYJO Large Abnormal Negative [facility] Comment on above: Performed By: #### N UM ####[facility] ([address] [place] [address] VIR NITRITE MARYJO Negative Normal Negative [facility] Comment on above: Performed By: #### N UM ####[facility] ([address] [place] [address] VIR PH MARYJO 7.0 Normal 5.0, 6.0, 6.5, 7.0, 7.5, 8.0, 8.5, 5.5 [facility] Comment on above: Performed By: #### N UM ####[facility] ([address] [place] [address] VIR PROTEIN MARYJO Negative Normal Negative [facility] Comment on above: Performed By: #### N UM ####[facility] ([address] [place] [address] VIR SPECIFIC GRAVITY MARYJO 1.015 Normal 1.010, 1.015, 1.020, 1.025 [facility] Comment on above: Performed By: #### N UM ####[facility] ([address] [place] [address] VIR UROBILINOGEN MARYJO 0.2 E.U./dL Normal [facility] Comment on above: Performed By: #### N UM ####[facility] ([address] [place] [address] VIR THYROID PROFILE INCLUDES TSH FT4on 06-08-2025 Free T4 [Mass/Vol] 1.21 ng/dL Normal 0.61-1.60 [facility] Comment on above: Performed By: #### T HYR ####[facility] ([address] [place] [address] VIR TSH 2.66 uIU/mL Normal 0.49-4.67 [facility] Comment on above: Performed By: #### T HYR ####[facility] ([address] [place] [address] VIR TROP I, HIGH SENSITIVITY 1 H OURon 06-08-2025 TROPONIN I, HIGH SENSITIVITY 7 ng/L Normal <16 [facility] Comment on above: Performed By: #### T NIHS1 ####[facility] ([address] [place] [address] VIR TROPONIN I, HIGH SENSITIVITY 0 HOURon 06-08-2025 TROPONIN I, HIGH SENSITIVITY 7 ng/L Normal <16 [facility] Comment on above: Performed By: #### T NIHS0 ####[facility] ([address] [place] [address] VIR XR CHEST 1 VWon 06-08-2025 XR CHEST 1 VW Normal [facility] XR Pelvis 1 or 2 [facility] Imaging Result: AP Pelvis Osteopenia noted Mild distraction of less trochanteric avulsion fracture. Soft tissue vascular calcifications are prominent No effusion. Remote sclerotic changes from pubic ramus fracture bilaterally with mild degenerative changes of hip Impression: stable appearing right hip lesser trochanteric avulsion fracture. [facility] Radiology Study observation (narrative) [facility] XR HIP RT 2-3 VIEWS W OR WO PELVISon 05-30-2025 XR HIP RT 2-3 VIEWS W OR WO PELVIS Normal [facility] CT HEAD WO IV CONTRASTon CT [...] Sukhjinder Ferrara. Not Vldtd Invalid Interpretation Code [facility] Comment on above: Order Comment: Do in one year, follow up ventricle size s/p WELD ENGINEER shunt, also needs shunt series x ray same day Follow-Upon 05-22-2025 Follow-Up [id number] Jb Dee 1945 F Date Provider Department Center 05/22/2025 Elina-VALE CONTRERAS [facility] SURG Second Fl Family History Problem Relation Age of Onset Diabetes Mother Hypertension Father Coronary artery disease Father Family Status - Relation Status Age at Mother Father Level of Service:[id number] ID OFFICE/OUTPATIENT ESTABLISHED MOD MDM 30 MIN Normal [facility] BEDSIDE GLUCOSEon 05-15-2025 Glucose [Mass/Vol] 320 mg/dL High 65-99 [facility] Comment on above: Performed By: #### B EDG ####[facility] ([address] [address] VIR Bedside Glucose *Place/Obtai n serum glucose if >500 per glucometer.on 05-15-2025 Glucose [Mass/Vol] 320 mg/dL High 65 - 99 mg/dL [facility] Interpretation and review of laboratory results Abnormal [facility] CBC WITH AUTO DIFFERENTIALon 05-15-2025 BASOPHILS ABSOLUTE COUNT (10*3/UL) BY AUTOMATED COUNT 0.0 10*3/uL Normal 0.0-0.2 [facility] Comment on above: Performed By: #### C BCA ####[facility] ([address] [address] VIR BASOPHILS RELATIVE PERCENT BY AUTOMATED COUNT 0.5 % Normal [facility] Comment on above: Performed By: #### C BCA ####[facility] ([address] [address] VIR CELLAVISION DIFFERENTIAL TYPE AUTOMATED DIFFERENTIAL Normal [facility] Comment on above: Performed By: #### C BCA ####[facility] ([address] [address] VIR Eosinophils (Bld) [#/Vol] 0.3 10*3/uL Normal 0.0-0.4 [facility] Comment on above: Performed By: #### C BCA ####[facility] ([address] [address] VIR EOSINOPHILS RELATIVE PERCENT BY AUTOMATED COUNT 3.4 % Normal [facility] Comment on above: Performed By: #### C BCA ####[facility] ([address] [address] VIR Erythrocyte distribution width (RBC) [Ratio] 15.5 % High 11.5-15 [facility] Comment on above: Performed By: #### C BCA ####[facility] ([address] [address] VIR Hematocrit (Bld) [Volume fraction] 30.0 % Low 35-47 [facility] Comment on above: Performed By: #### C BCA ####[facility] ([address] [address] VIR Hemoglobin (Bld) [Mass/Vol] 10.1 g/dL Low 11.7-15.5 [facility] Comment on above: Performed By: #### C BCA ####[facility] ([address] [address] VIR LYMPHOCYTES ABSOLUTE COUNT (10*3/UL) BY AUTOMATED COUNT 1.7 10*3/uL Normal 1.0-3.5 [facility] Comment on above: Performed By: #### C BCA ####[facility] ([address] [address] VIR LYMPHOCYTES RELATIVE PERCENT BY AUTOMATED COUNT 19.9 % Normal [facility] Comment on above: Performed By: #### C BCA ####[facility] ([address] [address] VIR MCH (RBC) [Entitic mass] 27.8 pg Normal 27-34 [facility] Comment on above: Performed By: #### C BCA ####[facility] ([address] [address] VIR MCHC (RBC) [Mass/Vol] 33.5 g/dL Normal 32-36 [facility] Comment on above: Performed By: #### C BCA ####[facility] ([address] [address] VIR MCV (RBC) [Entitic vol] 83 fL Normal 80-100 [facility] Comment on above: Performed By: #### C BCA ####[facility] ([address] [place] [address] VIR MONOCYTES ABSOLUTE COUNT (10*3/UL) BY AUTOMATED COUNT 0.8 10*3/uL Normal 0.0-0.9 [facility] Comment on above: Performed By: #### C BCA ####[facility] ([address] [place] [address] VIR MONOCYTES RELATIVE PERCENT BY AUTOMATED COUNT 9.9 % Normal [facility] Comment on above: Performed By: #### C BCA ####[facility] ([address] [place] [address] VIR NEUTROPHILS ABSOLUTE COUNT BY AUTOMATED COUNT 5.7 10*3/uL Normal 1.5-6.6 [facility] Comment on above: Performed By: #### C BCA ####[facility] ([address] [place] [address] VIR NEUTROPHILS RELATIVE PERCENT BY AUTOMATED COUNT 66.3 % Normal [facility] Comment on above: Performed By: #### C BCA ####[facility] ([address] [place] [address] VIR Platelet mean volume (Bld) [Entitic vol] 8.7 fL Normal 7-12 [facility] Comment on above: Performed By: #### C BCA ####[facility] ([address] [place] [address] VIR Platelets (Bld) [#/Vol] 196 10*3/uL Normal 150-450 [facility] Comment on above: Performed By: #### C BCA ####[facility] ([address] [place] [address] VIR RBC COUNT 3.62 X10E12/L Low 3.8-5.2 [facility] Comment on above: Performed By: #### C BCA ####[facility] ([address] [place] [address] VIR WBC (Bld) [#/Vol] 8.6 10*3/uL Normal 4-11 [facility] Comment on above: Performed By: #### C NATIVIDAD ####[facility] ([facility])[address] [place] [address] VIR CBC auto differentialon 0 Basophils (Bld) [#/Vol] 0 10*3/uL 0.0 - 0.2 10*3/uL [facility] Basophils/100 WBC (Bld) 0.5 % [facility] Differential cell count method Nom (Bld) AUTOMATED DIFFERENTIAL [facility] Eosinophils (Bld) [#/Vol] 0.3 10*3/uL 0.0 - 0.4 10*3/uL [facility] Eosinophils/100 WBC (Bld) 3.4 % [facility] Erythrocyte distribution width (RBC) [Ratio] 15.5 % High 11.5 - 15 % [facility] Hematocrit (Bld) [Volume fraction] 30 % Low 35 - 47 % [facility] Hemoglobin (Bld) [Mass/Vol] 10.1 g/dL Low 11.7 - 15.5 g/dL [facility] Interpretation and review of laboratory results Abnormal [facility] Lymphocytes (Bld) [#/Vol] 1.7 10*3/uL 1.0 - 3.5 10*3/uL [facility] Lymphocytes/100 WBC (Bld) 19.9 % [facility] MCH (RBC) [Entitic mass] 27.8 pg 27 - 34 pg [facility] MCHC (RBC) [Mass/Vol] 33.5 g/dL 32 - 36 g/dL [facility] MCV (RBC) [Entitic vol] 83 fL 80 - 100 fL [facility] Monocytes (Bld) [#/Vol] 0.8 10*3/uL 0.0 - 0.9 10*3/uL [facility] Monocytes/100 WBC (Bld) 9.9 % [facility] Neutrophils (Bld) [#/Vol] 5.7 10*3/uL 1.5 - 6.6 10*3/uL [facility] Neutrophils/100 WBC (Bld) 66.3 % [facility] Platelet mean volume (Bld) [Entitic vol] 8.7 fL 7 - 12 fL [facility] Platelets (Bld) [#/Vol] 196 10*3/uL [facility] RBC (Bld) [#/Vol] 3.62 10*6/uL Low [facility] WBC LM Ql (Sput) 8.6 [facility] COMPREHENSIVE METABOLIC PANE Dickson 05-15-2025 Albumin [Mass/Vol] 2.9 g/dL Low 3.2-5.3 [facility] Comment on above: Performed By: #### C MP ####[facility] ([address] [address] VIR ALP [Catalytic activity/Vol] 125 U/L Normal 39-130 [facility] Comment on above: Performed By: #### C MP ####[facility] ([address] [address] VIR ALT [Catalytic activity/Vol] 14 U/L Normal <=31 [facility] Comment on above: Performed By: #### C MP ####[facility] ([address] [address] VIR Anion gap [Moles/Vol] 8 mmol/L Normal 5-15 [facility] Comment on above: Performed By: #### C MP ####[facility] ([address] [address] VIR AST [Catalytic activity/Vol] 17 U/L Normal <=41 [facility] Comment on above: Performed By: #### C MP ####[facility] ([address] [address] VIR Bilirubin [Mass/Vol] 0.6 mg/dL Normal 0.3-1.2 [facility] Comment on above: Performed By: #### C MP ####[facility] ([facility])[address] [place] [address] VIR Calcium [Mass/Vol] 9.4 mg/dL Normal 8.5-10.5 [facility] Comment on above: Performed By: #### C MP ####[facility] ([address] [place] [address] VIR Chloride [Moles/Vol] 102 mmol/L Normal 98-109 [facility] Comment on above: Performed By: #### C MP ####[facility] ([address] [place] [address] VIR CO2 [Moles/Vol] 26 mmol/L Normal 22-32 [facility] Comment on above: Performed By: #### C MP ####[facility] ([address] [place] [address] VIR Creatinine [Mass/Vol] 1.20 mg/dL High 0.40-1.00 [facility] Comment on above: Result Comment: METH OD TRACEABLE TO IDMS STANDARD Performed By: #### C MP ####[facility] ([address] [place] [address] VIR GFR/1.73 sq M.predicted among non-blacks MDRD (S/P/Bld) [Vol rate/Area] 46 mL/min/{1.73_m2} Low >=60 [facility] Comment on above: Result Comment: eGFR not reported due to non-numeric value for Creatinine. Performed By: #### C MP ####[facility] ([address] [place] [address] VIR Glucose [Mass/Vol] 152 mg/dL High 65-99 [facility] Comment on above: Performed By: #### C MP ####[facility] ([address] [place] [address] VIR Potassium [Moles/Vol] 4.6 mmol/L Normal 3.5-5.0 [facility] Comment on above: Performed By: #### C MP ####[facility] ([address] [address] VIR Protein [Mass/Vol] 7.0 g/dL Normal 6.0-8.0 [facility] Comment on above: Performed By: #### C MP ####[facility] ([address] [address] VIR Sodium [Moles/Vol] 136 mmol/L Normal 134-146 [facility] Comment on above: Performed By: #### C MP ####[facility] ([address] [address] VIR Urea nitrogen [Mass/Vol] 22 mg/dL Normal 5-27 [facility] Comment on above: Performed By: #### C MP ####[facility] ([address] [address] VIR Comprehensive metabolic pane dickson 05-15-2025 Albumin [Mass/Vol] [...] [Mass/Vol] 22 mg/dL 5 - 27 mg/dL [facility] MAGNESIUMon 05-15-2025 Magnesium [Mass/Vol] 2.0 mg/dL Normal 1.8-2.6 [facility] Comment on above: Performed By: #### M G ####[facility] ([address] [address] VIR Magnesiumon 05-15-2025 Interpretation and review of laboratory results Normal [facility] Magnesium [Mass/Vol] 2 mg/dL 1.8 - 2.6 mg/dL [facility] SST TOPon 05-15-2025 Extra Tube Auto Resulted [facility] BEDSIDE GLUCOSEon 05-14-2025 Glucose [Mass/Vol] 286 mg/dL High 65-99 [facility] Comment on above: Performed By: #### B EDG ####[facility] ([address] [address] VIR Glucose [Mass/Vol] 308 mg/dL High 65-99 [facility] Comment on above: Performed By: #### B EDG ####[facility] ([address] [address] VIR Glucose [Mass/Vol] 223 mg/dL High 65-99 [facility] Comment on above: Performed By: #### B EDG ####[facility] ([address] [address] VIR Bedside Glucose *Place/Obtai n serum glucose if >500 per glucometer.on 05-14-2025 Glucose [Mass/Vol] 286 mg/dL High 65 - 99 mg/dL [facility] Interpretation and review of laboratory results Abnormal [facility] Glucose [Mass/Vol] 308 mg/dL High 65 - 99 mg/dL [facility] Interpretation and review of laboratory results Abnormal [facility] Glucose [Mass/Vol] 223 mg/dL High 65 - 99 mg/dL [facility] Interpretation and review of laboratory results Abnormal [facility] CBC WITH AUTO DIFFERENTIALon 05-14-2025 BASOPHILS ABSOLUTE COUNT (10*3/UL) BY AUTOMATED COUNT 0.1 10*3/uL Normal 0.0-0.2 [facility] Comment on above: Performed By: #### C BCA ####[facility] ([address] [address] VIR BASOPHILS RELATIVE PERCENT BY AUTOMATED COUNT 0.7 % Normal [facility] Comment on above: Performed By: #### C BCA ####[facility] ([address] [address] VIR CELLAVISION DIFFERENTIAL TYPE AUTOMATED DIFFERENTIAL Normal [facility] Comment on above: Performed By: #### C BCA ####[facility] ([address] [address] VIR Eosinophils (Bld) [#/Vol] 0.5 10*3/uL High 0.0-0.4 [facility] Comment on above: Performed By: #### C BCA ####[facility] ([address] [address] VIR EOSINOPHILS RELATIVE PERCENT BY AUTOMATED COUNT 6.6 % Normal [facility] Comment on above: Performed By: #### C BCA ####[facility] ([address] [place] [address] VIR Erythrocyte distribution width (RBC) [Ratio] 15.5 % High 11.5-15 [facility] Comment on above: Performed By: #### C BCA ####[facility] ([address] [address] VIR Hematocrit (Bld) [Volume fraction] 30.6 % Low 35-47 [facility] Comment on above: Performed By: #### C BCA ####[facility] ([address] [address] VIR Hemoglobin (Bld) [Mass/Vol] 10.3 g/dL Low 11.7-15.5 [facility] Comment on above: Performed By: #### C BCA ####[facility] ([address] [address] VIR LYMPHOCYTES ABSOLUTE COUNT (10*3/UL) BY AUTOMATED COUNT 1.8 10*3/uL Normal 1.0-3.5 [facility] Comment on above: Performed By: #### C BCA ####[facility] ([address] [address] VIR LYMPHOCYTES RELATIVE PERCENT BY AUTOMATED COUNT 23.9 % Normal [facility] Comment on above: Performed By: #### C BCA ####[facility] ([address] [address] VIR MCH (RBC) [Entitic mass] 28.1 pg Normal 27-34 [facility] Comment on above: Performed By: #### C BCA ####[facility] ([address] [address] VIR MCHC (RBC) [Mass/Vol] 33.5 g/dL Normal 32-36 [facility] Comment on above: Performed By: #### C BCA ####[facility] ([address] [address] VIR MCV (RBC) [Entitic vol] 84 fL Normal 80-100 [facility] Comment on above: Performed By: #### C BCA ####[facility] ([address] [address] VIR MONOCYTES ABSOLUTE COUNT (10*3/UL) BY AUTOMATED COUNT 1.0 10*3/uL High 0.0-0.9 [facility] Comment on above: Performed By: #### C BCA ####[facility] ([address] [address] VIR MONOCYTES RELATIVE PERCENT BY AUTOMATED COUNT 12.9 % Normal [facility] Comment on above: Performed By: #### C BCA ####[facility] ([address] [address] VIR NEUTROPHILS ABSOLUTE COUNT BY AUTOMATED COUNT 4.2 10*3/uL Normal 1.5-6.6 [facility] Comment on above: Performed By: #### C BCA ####[facility] ([address] [address] VIR NEUTROPHILS RELATIVE PERCENT BY AUTOMATED COUNT 55.9 % Normal [facility] Comment on above: Performed By: #### C BCA ####[facility] ([address] [address] VIR Platelet mean volume (Bld) [Entitic vol] 8.7 fL Normal 7-12 [facility] Comment on above: Performed By: #### C BCA ####[facility] ([address] [address] VIR Platelets (Bld) [#/Vol] 166 10*3/uL Normal 150-450 [facility] Comment on above: Performed By: #### C BCA ####[facility] ([address] [place] [address] VIR RBC COUNT 3.65 X10E12/L Low 3.8-5.2 [facility] Comment on above: Performed By: #### C BCA ####[facility] ([address] [place] [address] VIR WBC (Bld) [#/Vol] 7.6 10*3/uL Normal 4-11 [facility] Comment on above: Performed By: #### C BCA ####[facility] ([address] [place] [address] VIR CBC auto differentialon 04-17 Basophils (Bld) [#/Vol] 0.1 10*3/uL 0.0 - 0.2 10*3/uL [facility] Basophils/100 WBC (Bld) 0.7 % [facility] Differential cell count method Nom (Bld) AUTOMATED DIFFERENTIAL [facility] Eosinophils (Bld) [#/Vol] 0.5 10*3/uL High 0.0 - 0.4 10*3/uL [facility] Eosinophils/100 WBC (Bld) 6.6 % [facility] Erythrocyte distribution width (RBC) [Ratio] 15.5 % High 11.5 - 15 % [facility] Hematocrit (Bld) [Volume fraction] 30.6 % Low 35 - 47 % [facility] Hemoglobin (Bld) [Mass/Vol] 10.3 g/dL Low 11.7 - 15.5 g/dL [facility] Interpretation and review of laboratory results Abnormal [facility] Lymphocytes (Bld) [#/Vol] 1.8 10*3/uL 1.0 - 3.5 10*3/uL [facility] Lymphocytes/100 WBC (Bld) 23.9 % [facility] MCH (RBC) [Entitic mass] 28.1 pg 27 - 34 pg [facility] MCHC (RBC) [Mass/Vol] 33.5 g/dL 32 - 36 g/dL [facility] MCV (RBC) [Entitic vol] 84 fL 80 - 100 fL [facility] Monocytes (Bld) [#/Vol] 1 10*3/uL High 0.0 - 0.9 10*3/uL [facility] Monocytes/100 WBC (Bld) 12.9 % [facility] Neutrophils (Bld) [#/Vol] 4.2 10*3/uL 1.5 - 6.6 10*3/uL [facility] Neutrophils/100 WBC (Bld) 55.9 % [facility] Platelet mean volume (Bld) [Entitic vol] 8.7 fL 7 - 12 fL [facility] Platelets (Bld) [#/Vol] 166 10*3/uL [facility] RBC (Bld) [#/Vol] 3.65 10*6/uL Low [facility] WBC LM Ql (Sput) 7.6 [facility] COMPREHENSIVE METABOLIC PANE Dickson 05-14-2025 Albumin [Mass/Vol] 2.9 g/dL Low 3.2-5.3 [facility] Comment on above: Performed By: #### C MP ####[facility] ([address] [address] VIR ALP [Catalytic activity/Vol] 128 U/L Normal 39-130 [facility] Comment on above: Performed By: #### C MP ####[facility] ([address] [address] VIR ALT [Catalytic activity/Vol] 14 U/L Normal <=31 [facility] Comment on above: Performed By: #### C MP ####[facility] ([address] [address] VIR Anion gap [Moles/Vol] 9 mmol/L Normal 5-15 [facility] Comment on above: Performed By: #### C MP ####[facility] ([address] [address] VIR AST [Catalytic activity/Vol] 23 U/L Normal <=41 [facility] Comment on above: Performed By: #### C MP ####[facility] ([address] [place] [address] VIR Bilirubin [Mass/Vol] 0.6 mg/dL Normal 0.3-1.2 [facility] Comment on above: Performed By: #### C MP ####[facility] ([address] [place] [address] VIR Calcium [Mass/Vol] 9.0 mg/dL Normal 8.5-10.5 [facility] Comment on above: Performed By: #### C MP ####[facility] ([address] [place] [address] VIR Chloride [Moles/Vol] 108 mmol/L Normal 98-109 [facility] Comment on above: Performed By: #### C MP ####[facility] ([address] [place] [address] VIR CO2 [Moles/Vol] 22 mmol/L Normal 22-32 [facility] Comment on above: Performed By: #### C MP ####[facility] ([address] [place] [address] VIR Creatinine [Mass/Vol] 1.30 mg/dL High 0.40-1.00 [facility] Comment on above: Result Comment: METH OD TRACEABLE TO IDMS STANDARD Performed By: #### C MP ####[facility] ([address] [place] [address] VIR GFR/1.73 sq M.predicted among non-blacks MDRD (S/P/Bld) [Vol rate/Area] 42 mL/min/{1.73_m2} Low >=60 [facility] Comment on above: Result Comment: eGFR not reported due to non-numeric value for Creatinine. Performed By: #### C MP ####[facility] ([address] [place] [address] VIR Glucose [Mass/Vol] 148 mg/dL High 65-99 [facility] Comment on above: Performed By: #### C MP ####[facility] ([address] [place] [address] VIR Potassium [Moles/Vol] 4.4 mmol/L Normal 3.5-5.0 [facility] Comment on above: Performed By: #### C MP ####[facility] ([address] [place] [address] VIR Protein [Mass/Vol] 6.6 g/dL Normal 6.0-8.0 [facility] Comment on above: Performed By: #### C MP ####[facility] ([address] [place] [address] VIR Sodium [Moles/Vol] 139 mmol/L Normal 134-146 [facility] Comment on above: Performed By: #### C MP ####[facility] ([address] [place] [address] VIR Urea nitrogen [Mass/Vol] 27 mg/dL Normal 5-27 [facility] Comment on above: Performed By: #### C MP ####[facility] ([address] [place] [address] BRAIN WO CONTon CT BRAIN WO CONT Normal [facility] CT Head WO contraston 2024 STUDY: [...] hemorrhage, extra-axial fluid collection, or mass effect. Villarreal-white matter differentiation is appropriate. Infarcts and masses [...] hemorrhage, extra-axial fluid collection, or mass effect. Villarreal-white matter differentiation is appropriate. Infarcts and masses [...] Blu Miller MD on 05/14/2025 12:24 PM [facility] Radiology Study observation (narrative) [facility] CT Head WO contrastOrdered B y: Blu Miller on 05-14-2025 [facility] Work Phone: Comprehensive metabolic pane dickson 05-14-2025 Albumin [Mass/Vol] 2.9 g/dL Low 3.2 - 5.3 g/dL [facility] ALP [Catalytic activity/Vol] 128 U/L 39 - 130 U/L [facility] ALT No additional P-5'-P [Catalytic activity/Vol] [...] Hospital Comment on above: METHOD TRACEABLE TO IDMT STANDARD EGFR Non-Race Dependent 42 Low - PINF [facility] Comment on above: eGFR not reported du e to non-numeric value for Creatinine. Glucose [Mass/Vol] 148 mg/dL High 65 - 99 mg/dL [facility] Interpretation and review of laboratory results Abnormal [facility] Potassium [Moles/Vol] 4.4 mmol/L 3.5 - 5.0 mmol/L [facility] Protein [Mass/Vol] 6.6 g/dL 6.0 - 8.0 g/dL [facility] Sodium [Moles/Vol] 139 mmol/L 134 - 146 mmol/L [facility] Urea nitrogen [Mass/Vol] 27 mg/dL 5 - 27 mg/dL [facility] MAGNESIUMon 05-14-2025 Magnesium [Mass/Vol] 2.1 mg/dL Normal 1.8-2.6 [facility] Comment on above: Performed By: #### M G ####[facility] ([address] [place] [address] VIR Magnesium [Mass/Vol] 1.6 mg/dL Low 1.8-2.6 [facility] Comment on above: Performed By: #### M G ####[facility] ([address] [place] [address] VIR Magnesiumon 05-14-2025 Interpretation and review of laboratory results Normal [facility] Magnesium [Mass/Vol] 2.1 mg/dL 1.8 - 2.6 mg/dL [facility] Interpretation and review of laboratory results Abnormal [facility] Magnesium [Mass/Vol] 1.6 mg/dL Low 1.8 - 2.6 mg/dL [facility] APTTon 05-13-2025 aPTT Coag (PPP) [Time] 30 s [facility] Interpretation and review of laboratory results Normal [facility] aPTT Coag (Bld) [Time] 30 s Normal 26-37 [facility] Comment on above: Performed By: #### P TT ####[facility] ([facility])[address] [place] [address] VIR B-TYPE NATRIURETIC PEPTIDEon 05-13-2025 Natriuretic peptide B (Bld) [Mass/Vol] 602 pg/mL High <=100 [facility] Comment on above: Performed By: #### B JACK OF ALL TRADES ####[facility] ([facility])[address] [place] [address] VIR B-type natriuretic peptideOr dered By: Haven Tao on 05-13-2025 Interpretation and review of laboratory results Abnormal [facility] Natriuretic peptide B (Bld) [Mass/Vol] 602 pg/mL High NINF - 100 pg/mL [facility] BEDSIDE GLUCOSEon 05-13-2025 Glucose [Mass/Vol] 256 mg/dL High 65-99 [facility] Comment on above: Performed By: #### B EDG ####[facility] ([facility])[address] [place] [address] VIR Glucose [Mass/Vol] 384 mg/dL High 65-99 [facility] Comment on above: Performed By: #### B EDG ####[facility] ([facility])[address] [place] [address] VIR BLOOD CULTUREon 05-13-2025 Bacteria identified Cx Nom (Bld) CULTURE RESULTS NO GROWTH 5 DAYS Normal [facility] Comment on above: Order Comment: *SIRS Criteria: (must display 2 without other explanation)-Temperature < 36 or >38-Pulse >90-Resp rate >20-WBC less than 4K or greater than 12KRepeat blood cultures not needed:-To document that a blood culture is a contaminant when 1 of 2 bottles is positive for a common contaminant (already listed in [facility] with the culture result)-To document clearance of gram negative bacteremia in patients with suspected urinary source who are improving Performed By: #### B C ####[facility] ([facility])[address], [place] [address] VIR Bacteria identified Cx Nom (Bld) CULTURE RESULTS NO GROWTH 5 DAYS Normal [facility] Comment on above: Order Comment: *SIRS Criteria: (must display 2 without other explanation)-Temperature < 36 or >38-Pulse >90-Resp rate >20-WBC less than 4K or greater than 12KRepeat blood cultures not needed:-To document that a blood culture is a contaminant when 1 of 2 bottles is positive for a common contaminant (already listed in [facility] with the culture result)-To document clearance of gram negative bacteremia in patients with suspected urinary source who are improvingOnly aerobic bottle received Performed By: #### B C ####[facility] ([facility])[address], [place] [address] VIR BLOOD GAS, ARTERIALon 2024 BASE,DEFICIT -3.0 mmol/L Low 0.0-2.0 [facility] Comment on above: Performed By: #### A BG ####[facility] ([facility])[address] [place] [address] VIR HCO3 (Bld) [Moles/Vol] 22.8 mmol/L Normal 22.0-26.0 [facility] Comment on above: Performed By: #### A BG ####[facility])[address] [place] [address] VIR Oxygen saturation in Blood 92.0 % Normal >90.0 [facility] Comment on above: Performed By: #### A BG ####[facility])[address] [place] [address] VIR PCO2 ARTERIAL 41.4 mmHg Normal 35.0-45.0 [facility] Comment on above: Performed By: #### A BG ####[facility] ([facility])[address] [place] [address] [place] [address] VIR PH ARTERIAL 7.349 Low 7.350-7.45 0 [facility] Comment on above: Performed By: #### A BG ####[facility] ([address] [place] [address] VIR PO2 ARTERIAL 67 mmHg Low 80-100 [facility] Comment on above: Performed By: #### A BG ####[facility] ([address] [place] [address] VIR POC TATO'S TEST N/A Normal [facility] Comment on above: Performed By: #### A BG ####[facility] ([address] [place] [address] VIR SAMPLE SITE L Rad Normal [facility] Comment on above: Performed By: #### A BG ####[facility] ([address] [place] [address] VIR SAMPLE TYPE ARTERIAL Normal [facility] Comment on above: Performed By: #### A BG ####[facility] ([address] [place] [address] VIR SOURCE OF OXYGEN NC Normal [facility] Comment on above: Performed By: #### A BG ####[facility] ([address] [place] [address] VIR Bedside Glucose *Place/Obtai n serum glucose if >500 per glucometer.on 05-13-2025 Glucose [Mass/Vol] 256 mg/dL High 65 - 99 mg/dL [facility] Interpretation and review of laboratory results Abnormal [facility] Glucose [Mass/Vol] 384 mg/dL High 65 - 99 mg/dL [facility] Interpretation and review of laboratory results Abnormal [facility] C-REACTIVE PROTEINon 025 C REACTIVE PROTEIN 6.1 mg/dL High <=0.7 [facility] Comment on above: Performed By: #### C RP ####[facility] ([address] [address] VIR C-reactive proteinon 025 CRP [Mass/Vol] 6.1 mg/dL High NINF - 0.7 mg/dL [facility] Interpretation and review of laboratory results Abnormal [facility] CBC WITH AUTO DIFFERENTIALon 05-13-2025 BASOPHILS ABSOLUTE COUNT (10*3/UL) BY AUTOMATED COUNT 0.1 10*3/uL Normal 0.0-0.2 [facility] Comment on above: Performed By: #### C BCA ####[facility] ([address] [address] VIR BASOPHILS RELATIVE PERCENT BY AUTOMATED COUNT 0.6 % Normal [facility] Comment on above: Performed By: #### C BCA ####[facility] ([address] [address] VIR CELLAVISION DIFFERENTIAL TYPE AUTOMATED DIFFERENTIAL Normal [facility] Comment on above: Performed By: #### C BCA ####[facility] ([address] [address] VIR Eosinophils (Bld) [#/Vol] 0.1 10*3/uL Normal 0.0-0.4 [facility] Comment on above: Performed By: #### C BCA ####[facility] ([address] [address] VIR EOSINOPHILS RELATIVE PERCENT BY AUTOMATED COUNT 1.6 % Normal [facility] Comment on above: Performed By: #### C BCA ####[facility] ([address] [address] VIR Erythrocyte distribution width (RBC) [Ratio] 15.8 % High 11.5-15 [facility] Comment on above: Performed By: #### C BCA ####[facility] ([address] [address] VIR Hematocrit (Bld) [Volume fraction] 36.0 % Normal 35-47 [facility] Comment on above: Performed By: #### C BCA ####[facility] ([address] [address] VIR Hemoglobin (Bld) [Mass/Vol] 11.8 g/dL Normal 11.7-15.5 [facility] Comment on above: Performed By: #### C BCA ####[facility] ([address] [address] VIR LYMPHOCYTES ABSOLUTE COUNT (10*3/UL) BY AUTOMATED COUNT 1.7 10*3/uL Normal 1.0-3.5 [facility] Comment on above: Performed By: #### C BCA ####[facility] ([address] [address] VIR LYMPHOCYTES RELATIVE PERCENT BY AUTOMATED COUNT 18.7 % Normal [facility] Comment on above: Performed By: #### C BCA ####[facility] ([address] [address] VIR MCH (RBC) [Entitic mass] 27.5 pg Normal 27-34 [facility] Comment on above: Performed By: #### C BCA ####[facility] ([address] [address] VIR MCHC (RBC) [Mass/Vol] 32.7 g/dL Normal 32-36 [facility] Comment on above: Performed By: #### C BCA ####[facility] ([address] [address] VIR MCV (RBC) [Entitic vol] 84 fL Normal 80-100 [facility] Comment on above: Performed By: #### C BCA ####[facility] ([address] [address] VIR MONOCYTES ABSOLUTE COUNT (10*3/UL) BY AUTOMATED COUNT 0.9 10*3/uL Normal 0.0-0.9 [facility] Comment on above: Performed By: #### C BCA ####[facility] ([address] [address] VIR MONOCYTES RELATIVE PERCENT BY AUTOMATED COUNT 10.3 % Normal [facility] Comment on above: Performed By: #### C BCA ####[facility] ([address] [address] VIR NEUTROPHILS ABSOLUTE COUNT BY AUTOMATED COUNT 6.2 10*3/uL Normal 1.5-6.6 [facility] Comment on above: Performed By: #### C BCA ####[facility] ([address] [address] VIR NEUTROPHILS RELATIVE PERCENT BY AUTOMATED COUNT 68.8 % Normal [facility] Comment on above: Performed By: #### C BCA ####[facility] ([address] [address] VIR Platelet mean volume (Bld) [Entitic vol] 8.4 fL Normal 7-12 [facility] Comment on above: Performed By: #### C BCA ####[facility] ([address] [address] VIR Platelets (Bld) [#/Vol] 266 10*3/uL Normal 150-450 [facility] Comment on above: Performed By: #### C BCA ####[facility] [facility] ([facility])[address] [place] [address] [place] [address] VIR RBC COUNT 4.27 X10E12/L Normal 3.8-5.2 [facility] Comment on above: Performed By: #### C NATIVIDAD ####[facility] [place] [facility] ([facility])[address] [place] [address] [place] [address] VIR WBC (Bld) [#/Vol] 9.0 10*3/uL Normal 4-11 [facility] Comment on above: Performed By: #### C NATIVIDAD ####[facility] ([address] [place] [address] VIR CBC auto differentialon 04-16 Basophils (Bld) [#/Vol] 0.1 10*3/uL 0.0 - 0.2 10*3/uL [facility] Basophils/100 WBC (Bld) 0.6 % [facility] Differential cell count method Nom (Bld) AUTOMATED DIFFERENTIAL [facility] Eosinophils (Bld) [#/Vol] 0.1 10*3/uL 0.0 - 0.4 10*3/uL [facility] Eosinophils/100 WBC (Bld) 1.6 % [facility] Erythrocyte distribution width (RBC) [Ratio] 15.8 % High 11.5 - 15 % [facility] Hematocrit (Bld) [Volume fraction] 36 % 35 - 47 % [facility] Hemoglobin (Bld) [Mass/Vol] 11.8 g/dL 11.7 - 15.5 g/dL [facility] Interpretation and review of laboratory results Abnormal [facility] Lymphocytes (Bld) [#/Vol] 1.7 10*3/uL 1.0 - 3.5 10*3/uL [facility] Lymphocytes/100 WBC (Bld) 18.7 % [facility] MCH (RBC) [Entitic mass] 27.5 pg 27 - 34 pg [facility] MCHC (RBC) [Mass/Vol] 32.7 g/dL 32 - 36 g/dL [facility] MCV (RBC) [Entitic vol] 84 fL 80 - 100 fL [facility] Monocytes (Bld) [#/Vol] 0.9 10*3/uL 0.0 - 0.9 10*3/uL [facility] Monocytes/100 WBC (Bld) 10.3 % [facility] Neutrophils (Bld) [#/Vol] 6.2 10*3/uL 1.5 - 6.6 10*3/uL [facility] Neutrophils/100 WBC (Bld) 68.8 % [facility] Platelet mean volume (Bld) [Entitic vol] 8.4 fL 7 - 12 fL [facility] Platelets (Bld) [#/Vol] 266 10*3/uL [facility] RBC (Bld) [#/Vol] 4.27 10*6/uL [facility] WBC LM Ql (Sput) 9 [facility] COMPREHENSIVE METABOLIC PANE Dickson 05-13-2025 Albumin [Mass/Vol] 3.6 g/dL Normal 3.2-5.3 [facility] Comment on above: Performed By: #### C MP ####[facility] [place] [facility] ([address] [address] VIR ALP [Catalytic activity/Vol] 160 U/L High 39-130 [facility] [facility] Comment on above: Performed By: #### C MP ####[facility] ([address] [address] VIR ALT [Catalytic activity/Vol] 18 U/L Normal <=31 [facility] Comment on above: Performed By: #### C MP ####[facility] ([address] [address] VIR Anion gap [Moles/Vol] 10 mmol/L Normal 5-15 [facility] Comment on above: Performed By: #### C MP ####[facility] ([address] [address] VIR AST [Catalytic activity/Vol] 31 U/L Normal <=41 [facility] Comment on above: Performed By: #### C MP ####[facility] ([address] [place] [address] VIR Bilirubin [Mass/Vol] 0.5 mg/dL Normal 0.3-1.2 [facility] Comment on above: Performed By: #### C MP ####[facility] ([address] [place] [address] VIR Calcium [Mass/Vol] 9.5 mg/dL Normal 8.5-10.5 [facility] Comment on above: Performed By: #### C MP ####[facility] ([address] [place] [address] VIR Chloride [Moles/Vol] 101 mmol/L Normal 98-109 [facility] Comment on above: Performed By: #### C MP ####[facility] ([address] [place] [address] VIR CO2 [Moles/Vol] 23 mmol/L Normal 22-32 [facility] Comment on above: Performed By: #### C MP ####[facility] ([address] [place] [address] VIR Creatinine [Mass/Vol] 1.41 mg/dL High 0.40-1.00 [facility] Comment on above: Result Comment: METH OD TRACEABLE TO IDMS STANDARD Performed By: #### C MP ####[facility] ([address] [place] [address] VIR GFR/1.73 sq M.predicted among non-blacks MDRD (S/P/Bld) [Vol rate/Area] 38 mL/min/{1.73_m2} Low >=60 [facility] Comment on above: Result Comment: eGFR not reported due to non-numeric value for Creatinine.Reported eGFR is based on theCKD-EPI 2020 equation that doesnot use a race coefficient. Performed By: #### C MP ####[facility] ([facility])[address] [place] [address] VIR Glucose [Mass/Vol] 300 mg/dL High 65-99 [facility] Comment on above: Performed By: #### C MP ####[facility] ([facility])[address] [place] [address] VIR Potassium [Moles/Vol] 4.7 mmol/L Normal 3.5-5.0 [facility] Comment on above: Performed By: #### C MP ####[facility] ([address] [place] [address] VIR Protein [Mass/Vol] 8.2 g/dL High 6.0-8.0 [facility] Comment on above: Performed By: #### C MP ####[facility] ([address] [place] [address] VIR Sodium [Moles/Vol] 134 mmol/L Normal 134-146 [facility] Comment on above: Performed By: #### C MP ####[facility] ([address] [place] [address] VIR Urea nitrogen [Mass/Vol] 31 mg/dL High 5-27 [facility] Comment on above: Performed By: #### C MP ####[facility] ([address] [place] [address] HIP RT WO CONTon 05-13-[address] HIP RT WO CONT Normal [facility] CT Hip - right WO contraston 05-13-2025 [...] Chester Parra MD on 05/13/2025 1:01 PM SECTRAPA Chester Parra M D - 05/13/2025 Study: [...] Chester Parra MD on 05/13/2025 1:01 PM [facility] [facility] Radiology Study observation (narrative) [facility] Hip - right WO contrastOr dered By: Chester Parra on 05-13-2025 [facility] Hospital[facility] Work Phone: Comprehensive metabolic pane dickson 05-13-2025 [...] 31 mg/dL High 5 - 27 mg/dL [facility] Critical Careon 05-13-2025 Jack Milligan DO 04/17 [...] specialty: yes Care discussed with: admitting provider [facility] ECG 12 leadOrdered By: Jeaneth Quesada on 05-13-2025 [facility] Gas panel (BldA)on Arterial patency Wrist artery --pre arterial puncture N/A [facility] Base deficit (Bld) [Moles/Vol] -3 mmol/L Low 0.0 - 2.0 mmol/L [facility] CO2 (Bld) [Partial pressure] 41.4 mm[Hg] [facility] HCO3 (Bld) [Moles/Vol] 22.8 mmol/L 22.0 - 26.0 mmol/L [facility] Interpretation and review of laboratory results Abnormal [facility] Oxygen (Bld) [Partial pressure] 67 mm[Hg] Low [facility] Oxygen therapy source and amount [CARE] NC [facility] pH (Bld) 7.349 [pH] Low 7.350 - 7.450 [facility] Specimen site Narrative L Rad [facility] Specimen type Nom (Spec) ARTERIAL [facility] HEMOGLOBINon 05-13-2025 Hemoglobin (Bld) [Mass/Vol] 11.5 g/dL Low 11.7-15.5 [facility] Comment on above: Performed By: #### H GB ####[facility] ([address] [place] [address] VIR Hemoglobinon 05-13-2025 Hemoglobin (Bld) [Mass/Vol] 11.5 g/dL Low 11.7 - 15.5 g/dL [facility] Interpretation and review of laboratory results Abnormal [facility] LACTATE W/ REFLEXon 05-13-20 25 LACTATE W/REFLEX 1.5 mmol/L Normal 0.4-2.0 [facility] Comment on above: Order Comment: Resul t did not trigger repeat Lactate,re-order if needed. Performed By: #### L ACTS ####[facility] ([address] [address] VIR Lactate w/ Reflexon 05-13-20 25 Interpretation and review of laboratory results Normal [facility] Lactate (P obed) [Moles/Vol] 1.5 mmol/L 0.4 - 2.0 mmol/L [facility] Result did not toñito er repeat Lactate, re-order if needed. [facility] Light Blue Topon 05-13-2025 Extra Tube Auto Resulted [facility] No Panel Informationon 05-13 [facility] PLATELET COUNTon 05-13-2025 Platelet mean volume (Bld) [Entitic vol] 8.3 fL Normal 7-12 [facility] Comment on above: Performed By: #### P LTCT ####[facility] ([address] [address] VIR Platelets (Bld) [#/Vol] 214 10*3/uL Normal 150-450 [facility] Comment on above: Performed By: #### P LTCT ####[facility] ([address] [address] VIR PROCALCITONINon 05-13-2025 PROCALCITONIN 0.05 ng/mL High <0.05 [facility] Comment on above: Order Comment: <0.50 ng/mL - Low risk of severe sepsis and/or septic shock.<2.00 ng/mL - Recommend retesting within 6-24 hours.>2.00 ng/mL - High risk of sepsis and/or septic shock. Performed By: #### P ROSALBA ####[facility] ([address] [address] VIR PST TOPon 05-13-2025 Extra Tube Auto Resulted [facility] System Platelet counton 05-13-2025 Interpretation and review of laboratory results Normal [facility] Platelet mean volume (Bld) [Entitic vol] 8.3 fL 7 - 12 fL [facility] Platelets (Bld) [#/Vol] 214 10*3/uL [facility] Procalcitoninon 05-13-2025 Interpretation and review of laboratory results Abnormal [facility] Procalcitonin IA [Mass/Vol] 0.05 ng/mL High NINF - 0.05 ng/mL [facility] <0.50 ng/mL - Low ri sk of severe sepsis and/or septic shock. <2.00 ng/mL - Recommend retesting within 6-24 hours. >2.00 ng/mL - High risk of sepsis and/or septic shock. [facility] TROP I, HIGH SENSITIVITY 1 H OURon 05-13-2025 TROPONIN I, HIGH SENSITIVITY 26 ng/L High <16 [facility] Comment on above: Order Comment: [place] tions of hs-Troponin may be due to causesother than myocardial ischemia.Recommend serial hs-Troponin testing be performed.For the initial evaluation and management of chestpain patients, refer to the algorithms linked below.Emergency Patient:[email or web address]:[email or web address] Performed By: #### T NIHS1 ####[facility] ([address] [place] [address] VIR TROPONIN I, HIGH SENSITIVITY 0 HOURon 05-13-2025 TROPONIN I, HIGH SENSITIVITY 35 ng/L High <16 [facility] Comment on above: Performed By: #### T NIHS0 ####[facility] ([address] [address] VIR Troponin I, High Sensitivity 0 Houron 05-13-2025 Interpretation and review of laboratory results Abnormal [facility] Troponin I.cardiac High sensitivity method [Mass/Vol] 35 ng/L High NINF - 16 ng/L [facility] Troponin I, High Sensitivity 1 Houron 05-13-2025 Interpretation and review of laboratory results Abnormal [facility] Troponin I.cardiac High sensitivity method [Mass/Vol] 26 ng/L High NINF - 16 ng/L [facility] Elevations of hs-Tro ponin may be due to causes other than myocardial ischemia. Recommend serial hs-Troponin testing be performed. For the initial evaluation and management of chest pain patients, refer to the algorithms linked below. Emergency Patient: [email or web address] Inpatient: [email or web address] [facility] XR CHEST 1 VWon 05-13-2025 XR CHEST 1 VW Normal [facility] XR Chest Single viewon 05-13 Berry Wyman MD - 05/13/2025 Procedure: Chest x-ray performed Number of views:1 History:Shortness of breath Comparison:04/28/2025 Findings: The heart and lungs show no acute findings, and the mediastinum and stanley are grossly negative . Tube overlying right chest stable. Impression: 1. No acute change. Finalized by Berry Wyman MD on 05/13/2025 11:01 AM [facility] Radiology Study observation (narrative) [facility] XR Chest Single viewOrdered By: Berry Wyman on 05-13-2025 [facility] Work Phone: CBC WITH AUTO DIFFERENTIALon 05-12-2025 BASOPHILS ABSOLUTE COUNT (10*3/UL) BY AUTOMATED COUNT 0.0 10*3/uL Normal 0.0-0.2 [facility] Comment on above: Performed By: #### C BCA ####[facility] ([address] [address] VIR BASOPHILS RELATIVE PERCENT BY AUTOMATED COUNT 0.4 % Normal [facility] Comment on above: Performed By: #### C BCA ####[facility] ([address] [address] VIR CELLAVISION DIFFERENTIAL TYPE AUTOMATED DIFFERENTIAL Normal [facility] Comment on above: Performed By: #### C BCA ####[facility] ([address] [address] VIR Eosinophils (Bld) [#/Vol] 0.2 10*3/uL Normal 0.0-0.4 [facility] Comment on above: Performed By: #### C BCA ####[facility] ([address] [address] VIR EOSINOPHILS RELATIVE PERCENT BY AUTOMATED COUNT 3.5 % Normal [facility] Comment on above: Performed By: #### C BCA ####[facility] ([address] [address] VIR Erythrocyte distribution width (RBC) [Ratio] 15.8 % High 11.5-15 [facility] Comment on above: Performed By: #### C BCA ####[facility] ([address] [address] VIR Hematocrit (Bld) [Volume fraction] 32.5 % Low 35-47 [facility] Comment on above: Performed By: #### C BCA ####[facility] ([address] [address] VIR Hemoglobin (Bld) [Mass/Vol] 10.6 g/dL Low 11.7-15.5 [facility] Comment on above: Performed By: #### C BCA ####[facility] ([address] [address] VIR LYMPHOCYTES ABSOLUTE COUNT (10*3/UL) BY AUTOMATED COUNT 1.4 10*3/uL Normal 1.0-3.5 [facility] Comment on above: Performed By: #### C BCA ####[facility] ([address] [address] VIR LYMPHOCYTES RELATIVE PERCENT BY AUTOMATED COUNT 20.3 % Normal [facility] Comment on above: Performed By: #### C BCA ####[facility] ([address] [address] VIR MCH (RBC) [Entitic mass] 27.4 pg Normal 27-34 [facility] Comment on above: Performed By: #### C BCA ####[facility] ([address] [address] VIR MCHC (RBC) [Mass/Vol] 32.5 g/dL Normal 32-36 [facility] Comment on above: Performed By: #### C BCA ####[facility] ([address] [address] VIR MCV (RBC) [Entitic vol] 84 fL Normal 80-100 [facility] Comment on above: Performed By: #### C BCA ####[facility] ([address] [address] VIR MONOCYTES ABSOLUTE COUNT (10*3/UL) BY AUTOMATED COUNT 0.7 10*3/uL Normal 0.0-0.9 [facility] Comment on above: Performed By: #### C BCA ####[facility] ([address] [address] VIR MONOCYTES RELATIVE PERCENT BY AUTOMATED COUNT 10.4 % Normal [facility] Comment on above: Performed By: #### C BCA ####[facility] ([address] [place] [address] VIR NEUTROPHILS ABSOLUTE COUNT BY AUTOMATED COUNT 4.5 10*3/uL Normal 1.5-6.6 [facility] Comment on above: Performed By: #### C BCA ####[facility] ([address] [place] [address] VIR NEUTROPHILS RELATIVE PERCENT BY AUTOMATED COUNT 65.4 % Normal [facility] Comment on above: Performed By: #### C BCA ####[facility] ([address] [place] [address] VIR Platelet mean volume (Bld) [Entitic vol] 8.2 fL Normal 7-12 [facility] Comment on above: Performed By: #### C BCA ####[facility] ([address] [place] [address] VIR Platelets (Bld) [#/Vol] 263 10*3/uL Normal 150-450 [facility] Comment on above: Performed By: #### C BCA ####[facility] ([address] [place] [address] VIR RBC COUNT 3.86 X10E12/L Normal 3.8-5.2 [facility] Comment on above: Performed By: #### C BCA ####[facility] ([address] [place] [address] VIR WBC (Bld) [#/Vol] 6.8 10*3/uL Normal 4-11 [facility] Comment on above: Performed By: #### C BCA ####[facility] ([address] [place] [address] VIR COMPREHENSIVE METABOLIC PANE Dickson 05-12-2025 Albumin [Mass/Vol] 3.3 g/dL Normal 3.2-5.3 [facility] Comment on above: Performed By: #### C MP ####[facility] (ON LICENSE OF [facility] [place] [address] VIR ALP [Catalytic activity/Vol] 119 U/L Normal 39-130 [facility] Comment on above: Performed By: #### C MP ####[facility] ([facility])[address] [place] [address] VIR ALT [Catalytic activity/Vol] 16 U/L Normal <=31 [facility] Comment on above: Performed By: #### C MP ####[facility] ([place] [address] [place] [address] VIR Anion gap [Moles/Vol] 10 mmol/L Normal 5-15 [facility] Comment on above: Performed By: #### C MP ####[facility] ([place] [address] [place] [address] VIR AST [Catalytic activity/Vol] 21 U/L Normal <=41 [facility] Comment on above: Performed By: #### C MP ####[facility] ([place] [address] [place] [address] VIR Bilirubin [Mass/Vol] 0.4 mg/dL Normal 0.3-1.2 [facility] Comment on above: Performed By: #### C MP ####[facility] ([place] [address] [place] [address] VIR Calcium [Mass/Vol] 8.9 mg/dL Normal 8.5-10.5 [facility] Comment on above: Performed By: #### C MP ####[facility] ([place] [address] [place] [address] VIR Chloride [Moles/Vol] 100 mmol/L Normal 98-109 [facility] Comment on above: Performed By: #### C MP ####[facility] ([place] [address] [place] [address] VIR CO2 [Moles/Vol] 24 mmol/L Normal 22-32 [facility] Comment on above: Performed By: #### C MP ####[facility] ([address] [place] [address] VIR Creatinine [Mass/Vol] 1.37 mg/dL High 0.40-1.00 [facility] Comment on above: Result Comment: METH OD TRACEABLE TO IDMS STANDARD Performed By: #### C MP ####[facility] ([facility])[address] [place] [address] [place] [address] VIR GFR/1.73 sq M.predicted among non-blacks MDRD (S/P/Bld) [Vol rate/Area] 40 mL/min/{1.73_m2} Low >=60 [facility] Comment on above: Result Comment: eGFR not reported due to non-numeric value for Creatinine.Reported eGFR is based on theCKD-EPI 2020 equation that doesnot use a race coefficient. Performed By: #### C MP ####[facility] ([address] [place] [address] VIR Glucose [Mass/Vol] 348 mg/dL High 65-99 [facility] Comment on above: Performed By: #### C MP ####[facility] ([address] [place] [address] VIR Potassium [Moles/Vol] 4.1 mmol/L Normal 3.5-5.0 [facility] Comment on above: Performed By: #### C MP ####[facility] ([address] [place] [address] VIR Protein [Mass/Vol] 7.6 g/dL Normal 6.0-8.0 [facility] Comment on above: Performed By: #### C MP ####[facility] ([address] [place] [address] VIR Sodium [Moles/Vol] 134 mmol/L Normal 134-146 [facility] Comment on above: Performed By: #### C MP ####[facility] ([address] [place] [address] VIR Urea nitrogen [Mass/Vol] 25 mg/dL Normal 5-27 [facility] Comment on above: Performed By: #### C MP ####[facility] ([address] [place] [address] LUMBAR SPINE WO CONTon CT LUMBAR SPINE WO CONT Normal [facility] POCT NURSING URINE MACROSCOP IC UAon 05-12-2025 BILIRUBIN MARYJO Negative Normal Negative [facility] Comment on above: Performed By: #### N UM ####[facility] ([address] [place] [address] VIR BLOOD/HGB MARYJO Negative Normal Negative [facility] Comment on above: Performed By: #### N UM ####[facility] ([address] [place] [address] VIR GLUCOSE MARYJO 500 mg/dL Abnormal Negative [facility] Comment on above: Performed By: #### N UM ####[facility] ([address] [place] [address] VIR KETONES MARYJO Negative Normal Negative [facility] Comment on above: Performed By: #### N UM ####[facility] ([address] [place] [address] VIR LEUKOCYTE ESTERASE MARYJO Negative Normal Negative [facility] Comment on above: Performed By: #### N UM ####[facility] ([address] [place] [address] VIR NITRITE MARYJO Negative Normal Negative [facility] Comment on above: Performed By: #### N UM ####[facility] ([address] [place] [address] VIR PH MARYJO 5.5 Normal 5.0, 6.0, 6.5, 7.0, 7.5, 8.0, 8.5, 5.5 [facility] Comment on above: Performed By: #### N UM ####[facility] ([facility])[address] [place] [address] VIR PROTEIN MARYJO Negative Normal Negative [facility] Comment on above: Performed By: #### N UM ####[facility] ([facility])[address] [place] [address] [place] [address] VIR SPECIFIC GRAVITY MARYJO 1.015 Normal 1.010, 1.015, 1.020, 1.025 [facility] Comment on above: Performed By: #### N UM ####[facility] ([address] [place] [address] VIR UROBILINOGEN MARYJO 0.2 E.U./dL Normal [facility] Comment on above: Performed By: #### N UM ####[facility] ([address] [place] [address] VIR URINE CULTUREon 05-12-2025 Bacteria identified Cx Nom (U) CULTURE RESULTS NO GROWTH AT <1000 CFU/mL Normal [facility] Comment on above: Performed By: #### U C ####[facility] ([facility])[address], [place] [address] VIR XR SPINE LUMBAR 2 OR 3 VWSon 05-11-2025 XR SPINE LUMBAR 2 OR 3 VWS Normal [facility] CBC WITH AUTO DIFFERENTIALon 04-28-2025 BASOPHILS ABSOLUTE COUNT (10*3/UL) BY AUTOMATED COUNT 0.1 10*3/uL Normal 0.0-0.2 [facility] Comment on above: Performed By: #### C BCA ####[facility] ([facility])[address] [place] [address] [place] [address] VIR BASOPHILS RELATIVE PERCENT BY AUTOMATED COUNT 0.9 % Normal [facility] Comment on above: Performed By: #### C BCA ####[facility] ([address] [address] VIR CELLAVISION DIFFERENTIAL TYPE AUTOMATED DIFFERENTIAL Normal [facility] Comment on above: Performed By: #### C BCA ####[facility] ([address] [address] VIR Eosinophils (Bld) [#/Vol] 0.3 10*3/uL Normal 0.0-0.4 [facility] Comment on above: Performed By: #### C BCA ####[address] [address] VIR EOSINOPHILS RELATIVE PERCENT BY AUTOMATED COUNT 2.9 % Normal [facility] Comment on above: Performed By: #### C BCA ####[facility] ([address] [address] VIR Erythrocyte distribution width (RBC) [Ratio] 15.3 % High 11.5-15 [facility] Comment on above: Performed By: #### C BCA ####[facility] ([address] [address] VIR Hematocrit (Bld) [Volume fraction] 34.6 % Low 35-47 [facility] Comment on above: Performed By: #### C BCA ####[facility] ([address] [address] VIR Hemoglobin (Bld) [Mass/Vol] 11.3 g/dL Low 11.7-15.5 [facility] Comment on above: Performed By: #### C BCA ####[address] [address] VIR LYMPHOCYTES ABSOLUTE COUNT (10*3/UL) BY AUTOMATED COUNT 1.6 10*3/uL Normal 1.0-3.5 [facility] Comment on above: Performed By: #### C BCA ####[facility] ([address] [address] VIR LYMPHOCYTES RELATIVE PERCENT BY AUTOMATED COUNT 13.6 % Normal [facility] Comment on above: Performed By: #### C BCA ####[facility] ([address] [address] VIR MCH (RBC) [Entitic mass] 27.6 pg Normal 27-34 [facility] Comment on above: Performed By: #### C BCA ####[facility] ([address] [address] VIR MCHC (RBC) [Mass/Vol] 32.7 g/dL Normal 32-36 [facility] [facility] Comment on above: Performed By: #### C BCA ####[facility] ([address] [address] VIR MCV (RBC) [Entitic vol] 84 fL Normal 80-100 [facility] Comment on above: Performed By: #### C BCA ####[facility] ([address] [address] VIR MONOCYTES ABSOLUTE COUNT (10*3/UL) BY AUTOMATED COUNT 0.7 10*3/uL Normal 0.0-0.9 [facility] Comment on above: Performed By: #### C BCA ####[facility] ([address] [address] VIR MONOCYTES RELATIVE PERCENT BY AUTOMATED COUNT 6.4 % Normal [facility] Comment on above: Performed By: #### C BCA ####[facility] ([address] [address] VIR NEUTROPHILS ABSOLUTE COUNT BY AUTOMATED COUNT 8.9 10*3/uL High 1.5-6.6 [facility] Comment on above: Performed By: #### C BCA ####[facility] ([address] [place] [address] VIR NEUTROPHILS RELATIVE PERCENT BY AUTOMATED COUNT 76.2 % Normal [facility] Comment on above: Performed By: #### C BCA ####[facility] ([address] [place] [address] VIR Platelet mean volume (Bld) [Entitic vol] 8.0 fL Normal 7-12 [facility] Comment on above: Performed By: #### C BCA ####[facility] ([address] [place] [address] VIR Platelets (Bld) [#/Vol] 392 10*3/uL Normal 150-450 [facility] Comment on above: Performed By: #### C BCA ####[facility] ([address] [place] [address] VIR RBC COUNT 4.11 X10E12/L Normal 3.8-5.2 [facility] Comment on above: Performed By: #### C BCA ####[facility] ([address] [place] [address] VIR WBC (Bld) [#/Vol] 11.7 10*3/uL High 4-11 [facility] Comment on above: Performed By: #### C BCA ####[facility] ([address] [place] [address] VIR COMPREHENSIVE METABOLIC PANE Dickson 04-28-2025 Albumin [Mass/Vol] 3.6 g/dL Normal 3.2-5.3 [facility] Comment on above: Performed By: #### C MP ####[facility] ([address] [place] [address] VIR ALP [Catalytic activity/Vol] 154 U/L High 39-130 [facility] Comment on above: Performed By: #### C MP ####[facility] (WIN)[address] [place] [address] VIR ALT [Catalytic activity/Vol] 14 U/L Normal <=31 [facility] Comment on above: Performed By: #### C MP ####[facility] ([facility] [place] [address] VIR Anion gap [Moles/Vol] 15 mmol/L Normal 5-15 [facility] Comment on above: Performed By: #### C MP ####[facility] ([facility] [place] [address] VIR AST [Catalytic activity/Vol] 29 U/L Normal <=41 [facility] Comment on above: Performed By: #### C MP ####[facility] ([place] [address] [place] [address] VIR Bilirubin [Mass/Vol] 0.9 mg/dL Normal 0.3-1.2 [facility] Comment on above: Performed By: #### C MP ####[facility] ([place] [address] [place] [address] VIR Calcium [Mass/Vol] 9.7 mg/dL Normal 8.5-10.5 [facility] Comment on above: Performed By: #### C MP ####[facility] ([place] [address] [place] [address] VIR Chloride [Moles/Vol] 92 mmol/L Low 98-109 [facility] Comment on above: Performed By: #### C MP ####[facility] ([place] [address] [place] [address] VIR CO2 [Moles/Vol] 26 mmol/L Normal 22-32 [facility] Comment on above: Performed By: #### C MP ####[facility] ([place] [address] [place] [address] VIR Creatinine [Mass/Vol] 1.47 mg/dL High 0.40-1.00 [facility] Comment on above: Result Comment: METH OD TRACEABLE TO IDMS STANDARD Performed By: #### C MP ####[facility] ([address] [place] [address] VIR GFR/1.73 sq M.predicted among non-blacks MDRD (S/P/Bld) [Vol rate/Area] 36 mL/min/{1.73_m2} Low >=60 [facility] Comment on above: Result Comment: eGFR not reported due to non-numeric value for Creatinine.Reported eGFR is based on theCKD-EPI 2020 equation that doesnot use a race coefficient. Performed By: #### C MP ####[facility] ([address] [place] [address] VIR Glucose [Mass/Vol] 271 mg/dL High 65-99 [facility] Comment on above: Performed By: #### C MP ####[facility] ([address] [place] [address] VIR Potassium [Moles/Vol] 4.6 mmol/L Normal 3.5-5.0 [facility] Comment on above: Performed By: #### C MP ####[facility] ([address] [place] [address] VIR Protein [Mass/Vol] 8.4 g/dL High 6.0-8.0 [facility] Comment on above: Performed By: #### C MP ####[facility] ([address] [place] [address] VIR Sodium [Moles/Vol] 133 mmol/L Low 134-146 [facility] Comment on above: Performed By: #### C MP ####[facility] ([address] [place] [address] VIR Urea nitrogen [Mass/Vol] 17 mg/dL Normal 5-27 [facility] Comment on above: Performed By: #### C MP ####[facility] ([address] [place] [address]RAIN WO CONTon CT BRAIN WO CONT Normal [facility] POCT NURSING URINE MACROSCOP IC UAon 04-28-2025 BILIRUBIN MARYJO Small Abnormal Negative [facility] Comment on above: Performed By: #### N UM ####[facility] ([address] [address] VIR BLOOD/HGB MARYJO Trace Abnormal Negative [facility] Comment on above: Performed By: #### N UM ####[address] [address] VIR GLUCOSE MARYJO Negative Normal Negative [facility] Comment on above: Performed By: #### N UM ####[facility] ([address] [address] VIR KETONES MARYJO 40 mg/dL Abnormal Negative [facility] Comment on above: Performed By: #### N UM ####[facility] ([address] [address] VIR LEUKOCYTE ESTERASE MARYJO Small Abnormal Negative [facility] Comment on above: Performed By: #### N UM ####[facility] ([address] [address] VIR NITRITE MARYJO Positive Abnormal Negative [facility] Comment on above: Performed By: #### N UM ####[facility] ([address] [address] VIR PH MARYJO 6.0 Normal 5.0, 6.0, 6.5, 7.0, 7.5, 8.0, 8.5, 5.5 [facility] Comment on above: Performed By: #### N UM ####[facility] ([address] [place] [address] VIR PROTEIN MARYJO 100 mg/dL Abnormal Negative [facility] Comment on above: Performed By: #### N UM ####[facility] ([facility])[address] [place] [address] VIR SPECIFIC GRAVITY MARYJO 1.025 Normal 1.010, 1.015, 1.020, 1.025 [facility] Comment on above: Performed By: #### N UM ####[facility])[address] [place] [address] [place] [address] VIR UROBILINOGEN MARYJO 0.2 E.U./dL Normal [facility] Comment on above: Performed By: #### N UM ####[facility])[address] [place] [address] [place] [address] VIR URINE CULTUREon 04-28-2025 Bacteria identified Cx Nom (U) Susceptible [facility] Comment on above: Performed By: #### U C ####[facility] ([facility])[address], [place] [address] VIR XR CHEST 1 VWon 04-28-2025 XR CHEST 1 VW Normal [facility] Telemedicineon 04-05-2025 Telemedicine [id number] Jb Dee fab Ayala 1945 F Date Provider Department Center 04/05/2025 [facility] IN[facility] Family History Problem Relation Age of Onset Diabetes Mother Hypertension Father Coronary artery disease Father Family Status - Relation Status Age at Mother Father Level of Service:81534 ID OFFICE/OUTPATIENT ESTABLISHED LOW MDM 20 MIN Reason for Visit and Comments: Follow-up [627020] - No longer on IV Antibiotics or oral and doing well. MRSA [[id number]] Normal [facility] 36on 04-04-2025 36 Labs are in chart Normal [facility] BASIC METABOLIC PANELon 05-2 Anion gap [Moles/Vol] 13 mmol/L Normal 5-15 [facility] Comment on above: Performed By: #### B MP ####[facility] ([facility])[address], [place] [address] VIR Calcium [Mass/Vol] 9.9 mg/dL Normal 8.5-10.5 [facility] Comment on above: Performed By: #### B MP ####[facility] ([facility])[address], [place] [address] VIR Chloride [Moles/Vol] 98 mmol/L Normal 98-109 [facility] Comment on above: Performed By: #### B MP ####[facility] ([facility])[address], [place] [address] VIR CO2 [Moles/Vol] 25 mmol/L Normal 22-32 [facility] Comment on above: Performed By: #### B MP ####[facility] ([facility])[address], [place] [address] VIR Creatinine [Mass/Vol] 1.30 mg/dL High 0.40-1.00 [facility] Comment on above: Result Comment: METH OD TRACEABLE TO IDMS STANDARD Performed By: #### B MP ####[facility] ([facility])[address], [place] [address] VIR GFR/1.73 sq M.predicted among non-blacks MDRD (S/P/Bld) [Vol rate/Area] 42 mL/min/{1.73_m2} Low >=60 [facility] Comment on above: Result Comment: Repo rted eGFR is based on theCKD-EPI 2020 equation that doesnot use a race coefficient. Performed By: #### B MP ####[facility] ([facility])[address], [place] [address] VIR Glucose [Mass/Vol] 227 mg/dL High 65-99 [facility] Comment on above: Performed By: #### B MP ####[facility] ([facility])[address], [place] [address] VIR Potassium [Moles/Vol] 4.2 mmol/L Normal 3.5-5.0 [facility] Comment on above: Performed By: #### B MP ####[facility] ([facility])[address], [place] [address] VIR Sodium [Moles/Vol] 136 mmol/L Normal 134-146 [facility] Comment on above: Performed By: #### B MP ####[facility] ([facility])[address], [place] [address] VIR Urea nitrogen [Mass/Vol] 17 mg/dL Normal 5-27 [facility] Comment on above: Performed By: #### B MP ####[facility] ([facility])[address], [place] [address] VIR CBC WITH AUTO DIFFERENTIALon 04-03-2025 BASOPHILS ABSOLUTE COUNT (10*3/UL) BY AUTOMATED COUNT 0.1 10*3/uL Normal 0.0-0.2 [facility] Comment on above: Order Comment: Abnor mal CBC with auto diff reflexes to a manual diff Result Comment: This is an appended report. These results have been appended to a previously preliminary verified report. Performed By: #### C BCA ####[facility] ([facility])[address], [place] [address] VIR BASOPHILS RELATIVE PERCENT BY AUTOMATED COUNT 0.8 % Normal [facility] Comment on above: Order Comment: Abnor mal CBC with auto diff reflexes to a manual diff Result Comment: This is an appended report. These results have been appended to a previously preliminary verified report. Performed By: #### C BCA ####[facility] ([facility])[address], [place] [address] VIR CELLAVISION DIFFERENTIAL TYPE AUTOMATED DIFFERENTIAL Normal [facility] Comment on above: Order Comment: Abnor mal CBC with auto diff reflexes to a manual diff Result Comment: This is an appended report. These results have been appended to a previously preliminary verified report. Performed By: #### C BCA ####[facility] ([facility])[address], [place] [address] VIR Eosinophils (Bld) [#/Vol] 0.4 10*3/uL Normal 0.0-0.4 [facility] Comment on above: Order Comment: Abnor mal CBC with auto diff reflexes to a manual diff Result Comment: This is an appended report. These results have been appended to a previously preliminary verified report. Performed By: #### C BCA ####[facility] ([facility])[address] [address] VIR EOSINOPHILS RELATIVE PERCENT BY AUTOMATED COUNT 4.5 % Normal [facility] Comment on above: Order Comment: Abnor mal CBC with auto diff reflexes to a manual diff Result Comment: This is an appended report. These results have been appended to a previously preliminary verified report. Performed By: #### C BCA ####[facility] ([facility])[address] [address] VIR Erythrocyte distribution width (RBC) [Ratio] 15.9 % High 11.5-15 [facility] Comment on above: Order Comment: Abnor mal CBC with auto diff reflexes to a manual diff Performed By: #### C BCA ####[facility] ([facility])[address] [place] [address] VIR Hematocrit (Bld) [Volume fraction] 32.9 % Low 35-47 [facility] Comment on above: Order Comment: Abnor mal CBC with auto diff reflexes to a manual diff Performed By: #### C BCA ####[facility] ([facility])[address], [place] [address] VIR Hemoglobin (Bld) [Mass/Vol] 10.9 g/dL Low 11.7-15.5 [facility] Comment on above: Order Comment: Abnor mal CBC with auto diff reflexes to a manual diff Performed By: #### C BCA ####[facility] ([facility])[address] [address] VIR LYMPHOCYTES ABSOLUTE COUNT (10*3/UL) BY AUTOMATED COUNT 1.4 10*3/uL Normal 1.0-3.5 [facility] Comment on above: Order Comment: Abnor mal CBC with auto diff reflexes to a manual diff Result Comment: This is an appended report. These results have been appended to a previously preliminary verified report. Performed By: #### C BCA ####[facility] ([facility])[address] [address] VIR LYMPHOCYTES RELATIVE PERCENT BY AUTOMATED COUNT 17.6 % Normal [facility] Comment on above: Order Comment: Abnor mal CBC with auto diff reflexes to a manual diff Result Comment: This is an appended report. These results have been appended to a previously preliminary verified report. Performed By: #### C BCA ####[facility] ([facility])[address] [address] VIR MCH (RBC) [Entitic mass] 27.6 pg Normal 27-34 [facility] Comment on above: Order Comment: Abnor mal CBC with auto diff reflexes to a manual diff Performed By: #### C BCA ####[facility] ([facility])[address] [address] VIR MCHC (RBC) [Mass/Vol] 33.2 g/dL Normal 32-36 [facility] Comment on above: Order Comment: Abnor mal CBC with auto diff reflexes to a manual diff Performed By: #### C BCA ####[facility] ([facility])[address] [address] VIR MCV (RBC) [Entitic vol] 83 fL Normal 80-100 [facility] Comment on above: Order Comment: Abnor mal CBC with auto diff reflexes to a manual diff Performed By: #### C BCA ####[facility] ([facility])[address] [address] VIR MONOCYTES ABSOLUTE COUNT (10*3/UL) BY AUTOMATED COUNT 0.6 10*3/uL Normal 0.0-0.9 [facility] Comment on above: Order Comment: Abnor mal CBC with auto diff reflexes to a manual diff Result Comment: This is an appended report. These results have been appended to a previously preliminary verified report. Performed By: #### C BCA ####[facility] ([facility])[address], [place] [address] VIR MONOCYTES RELATIVE PERCENT BY AUTOMATED COUNT 7.9 % Normal [facility] Comment on above: Order Comment: Abnor mal CBC with auto diff reflexes to a manual diff Result Comment: This is an appended report. These results have been appended to a previously preliminary verified report. Performed By: #### C BCA ####[facility] ([facility])[address], [place] [address] VIR NEUTROPHILS ABSOLUTE COUNT BY AUTOMATED COUNT 5.6 10*3/uL Normal 1.5-6.6 [facility] Comment on above: Order Comment: Abnor mal CBC with auto diff reflexes to a manual diff Result Comment: This is an appended report. These results have been appended to a previously preliminary verified report. Performed By: #### C BCA ####[facility] ([facility])[address], [place] [address] VIR NEUTROPHILS RELATIVE PERCENT BY AUTOMATED COUNT 69.2 % Normal [facility] Comment on above: Order Comment: Abnor mal CBC with auto diff reflexes to a manual diff Result Comment: This is an appended report. These results have been appended to a previously preliminary verified report. Performed By: #### C BCA ####[facility] ([facility])[address], [place] [address] VIR Platelet mean volume (Bld) [Entitic vol] 8.8 fL Normal 7-12 [facility] Comment on above: Order Comment: Abnor mal CBC with auto diff reflexes to a manual diff Performed By: #### C BCA ####[facility] ([facility])[address], [place] [address] VIR Platelets (Bld) [#/Vol] 314 10*3/uL Normal 150-450 [facility] Comment on above: Order Comment: Abnor mal CBC with auto diff reflexes to a manual diff Performed By: #### C BCA ####[facility] ([facility])[address], [place] [address] VIR RBC COUNT 3.96 X10E12/L Normal 3.8-5.2 [facility] Comment on above: Order Comment: Abnor mal CBC with auto diff reflexes to a manual diff Performed By: #### C BCA ####[facility] ([facility])[address], [place] [address] VIR WBC (Bld) [#/Vol] 8.0 10*3/uL Normal 4-11 [facility] Comment on above: Order Comment: Abnor mal CBC with auto diff reflexes to a manual diff Performed By: #### C BCA ####[facility] ([facility])[address], [place] [address] VIR CK TOTALon 04-03-2025 CPK 246 U/L High 24-170 [facility] Comment on above: Performed By: #### C PK ####[facility] ([facility])[address], [place] [address] VIR 36on 03-28-2025 36 Follow up call made to get pt scheduled for follow up appt, VM was left on Pts daughter phone. Normal [facility] 36 Labs are in Chart Normal [facility] BASIC METABOLIC PANELon 03-15 Anion gap [Moles/Vol] 9 mmol/L Normal 5-15 [facility] Comment on above: Performed By: #### B MP ####[facility] ([facility])[address], [place] [address] VIR Calcium [Mass/Vol] 9.2 mg/dL Normal 8.5-10.5 [facility] Comment on above: Performed By: #### B MP ####[facility] ([facility])[address], [place] [address] VIR Chloride [Moles/Vol] 96 mmol/L Low 98-109 [facility] Comment on above: Performed By: #### B MP ####[facility] ([facility])[address], [place] [address] VIR CO2 [Moles/Vol] 31 mmol/L Normal 22-32 [facility] Comment on above: Performed By: #### B MP ####[facility] ([facility])[address], [place] [address] VIR Creatinine [Mass/Vol] 1.58 mg/dL High 0.40-1.00 [facility] Comment on above: Result Comment: METH OD TRACEABLE TO IDMS STANDARD Performed By: #### B MP ####[facility] ([facility])[address], [place] [address] VIR GFR/1.73 sq M.predicted among non-blacks MDRD (S/P/Bld) [Vol rate/Area] 33 mL/min/{1.73_m2} Low >=60 [facility] Comment on above: Result Comment: Repo rted eGFR is based on theCKD-EPI 2020 equation that doesnot use a race coefficient. Performed By: #### B MP ####[facility] ([facility])[address], [place] [address] VIR Glucose [Mass/Vol] 328 mg/dL High 65-99 [facility] Comment on above: Performed By: #### B MP ####[facility] ([facility])[address], [place] [address] VIR Potassium [Moles/Vol] 4.2 mmol/L Normal 3.5-5.0 [facility] Comment on above: Performed By: #### B MP ####[facility] ([facility])[address], [place] [address] VIR Sodium [Moles/Vol] 136 mmol/L Normal 134-146 [facility] Comment on above: Performed By: #### B MP ####[facility] ([facility])[address] [address] VIR Urea nitrogen [Mass/Vol] 22 mg/dL Normal 5-27 [facility] Comment on above: Performed By: #### B MP ####[facility] ([facility])[address] [address] VIR Basic metabolic panelon 03-15 Anion gap [Moles/Vol] 9 mmol/L 5 - 15 mmol/L [facility] Calcium [Mass/Vol] 9.2 mg/dL 8.5 - 10.5 mg/dL [facility] Chloride [Moles/Vol] 96 mmol/L Low 98 - [...] 03-26-2025 CELLAVISION DIFFERENTIAL TYPE MANUAL DIFFERENTIAL Normal [facility] Comment on above: Order Comment: Abnor mal CBC with auto diff reflexes to a manual diff Result Comment: This is an appended report. These results have been appended to a previously preliminary verified report. Performed By: #### C BCA ####[facility] ([facility])[address], [place] [address] VIR CELLAVISION ELLIPTOCYTES IN BLOOD BY LIGHT MICROSCOPY 1+ Normal [facility] Comment on above: Order Comment: Abnor mal CBC with auto diff reflexes to a manual diff Result Comment: This is an appended report. These results have been appended to a previously preliminary verified report. Performed By: #### C BCA ####[facility] ([facility])[address], [place] [address] VIR CELLAVISION EOSINOPHILS ABSOLUTE COUNT (10*3/UL) BY MANUAL COUNT 0.5 10*3/uL High 0.0-0.4 [facility] Comment on above: Order Comment: Abnor mal CBC with auto diff reflexes to a manual diff Result Comment: This is an appended report. These results have been appended to a previously preliminary verified report. Performed By: #### C BCA ####[facility] ([facility])[address], [place] [address] VIR CELLAVISION EOSINOPHILS PERCENT BY MANUAL COUNT 7 % Normal [facility] Comment on above: Order Comment: Abnor mal CBC with auto diff reflexes to a manual diff Result Comment: This is an appended report. These results have been appended to a previously preliminary verified report. Performed By: #### C BCA ####[facility] ([facility])[address], [place] [address] VIR CELLAVISION LYMPHOCYTES ABSOLUTE COUNT (10*3/UL) BY MANUAL COUNT 0.9 10*3/uL Low 1.0-3.5 [facility] Comment on above: Order Comment: Abnor mal CBC with auto diff reflexes to a manual diff Result Comment: This is an appended report. These results have been appended to a previously preliminary verified report. Performed By: #### C BCA ####[facility] ([facility])[address], [place] [address] VIR CELLAVISION LYMPHOCYTES RELATIVE PERCENT BY MANUAL COUNT 12 % Normal [facility] Comment on above: Order Comment: Abnor mal CBC with auto diff reflexes to a manual diff Result Comment: This is an appended report. These results have been appended to a previously preliminary verified report. Performed By: #### C BCA ####[facility] ([facility])[address], [place] [address] VIR CELLAVISION MONOCYTES ABSOLUTE COUNT (10*3/UL) IN BLOOD BY MANUAL COUNT 0.4 10*3/uL Normal 0.0-0.9 [facility] Comment on above: Order Comment: Abnor mal CBC with auto diff reflexes to a manual diff Result Comment: This is an appended report. These results have been appended to a previously preliminary verified report. Performed By: #### C BCA ####[facility] ([facility])[address], [place] [address] VIR CELLAVISION MONOCYTES RELATIVE PERCENT BY MANUAL COUNT 5 % Normal [facility] Comment on above: Order Comment: Abnor mal CBC with auto diff reflexes to a manual diff Result Comment: This is an appended report. These results have been appended to a previously preliminary verified report. Performed By: #### C BCA ####[facility] ([facility])[address] [facility] [address], [place] [address] VIR CELLAVISION NEUTROPHILS ABSOLUTE COUNT BY MANUAL COUNT 5.5 10*3/uL Normal 1.5-6.6 [facility] Comment on above: Order Comment: Abnor mal CBC with auto diff reflexes to a manual diff Result Comment: This is an appended report. These results have been appended to a previously preliminary verified report. Performed By: #### C BCA ####[facility] ([facility])[address], [place] [address] VIR CELLAVISION NEUTROPHILS RELATIVE PERCENT BY MANUAL COUNT 76 % Normal [facility] Comment on above: Order Comment: Abnor mal CBC with auto diff reflexes to a manual diff Result Comment: This is an appended report. These results have been appended to a previously preliminary verified report. Performed By: #### C BCA ####[facility] ([facility])[address], [place] [address] VIR Erythrocyte distribution width (RBC) [Ratio] 16.8 % High 11.5-15 [facility] Comment on above: Order Comment: Abnor mal CBC with auto diff reflexes to a manual diff Performed By: #### C BCA ####[facility] ([facility])[address], [place] [address] VIR Hematocrit (Bld) [Volume fraction] 28.9 % Low 35-47 [facility] Comment on above: Order Comment: Abnor mal CBC with auto diff reflexes to a manual diff Performed By: #### C BCA ####[facility] ([facility])[address], [place] [address] VIR Hemoglobin (Bld) [Mass/Vol] 9.5 g/dL Low 11.7-15.5 [facility] Comment on above: Order Comment: Abnor mal CBC with auto diff reflexes to a manual diff Performed By: #### C BCA ####[facility] ([facility])[address], [place] [address] VIR MCH (RBC) [Entitic mass] 27.7 pg Normal 27-34 [facility] Comment on above: Order Comment: Abnor mal CBC with auto diff reflexes to a manual diff Performed By: #### C BCA ####[facility] ([facility])[address], [place] [address] VIR MCHC (RBC) [Mass/Vol] 32.9 g/dL Normal 32-36 [facility] Comment on above: Order Comment: Abnor mal CBC with auto diff reflexes to a manual diff Performed By: #### C BCA ####[facility] ([facility])[address], [place] [address] VIR MCV (RBC) [Entitic vol] 84 fL Normal 80-100 [facility] Comment on above: Order Comment: Abnor mal CBC with auto diff reflexes to a manual diff Performed By: #### C BCA ####[facility] ([facility])[address] [facility] [address], [place] [address] VIR Platelet mean volume (Bld) [Entitic vol] 9.1 fL Normal 7-12 [facility] Comment on above: Order Comment: Abnor mal CBC with auto diff reflexes to a manual diff Performed By: #### C BCA ####[facility] ([facility])[address] [facility] [address] [address], [place] [address] VIR Platelets (Bld) [#/Vol] 233 10*3/uL Normal 150-450 [facility] Comment on above: Order Comment: Abnor mal CBC with auto diff reflexes to a manual diff Performed By: #### C BCA ####[facility] ([facility])[address] [facility] [address] [address], [place] [address] VIR RBC COUNT 3.43 X10E12/L Low 3.8-5.2 [facility] Comment on above: Order Comment: Abnor mal CBC with auto diff reflexes to a manual diff Performed By: #### C BCA ####[facility] ([facility])[address] [facility] [address], [place] [address] VIR WBC (Bld) [#/Vol] 7.3 10*3/uL Normal 4-11 [facility] Comment on above: Order Comment: Abnor mal CBC with auto diff reflexes to a manual diff Performed By: #### C BCA ####[facility] ([facility])[address] [facility] [address], [place] [address] VIR CK TOTALon 03-26-2025 CPK 265 U/L High 24-170 [facility] Comment on above: Performed By: #### C PK ####[facility] ([facility])[address] [facility] [address], [place] [address] VIR CK Totalon 03-26-2025 CK [Catalytic activity/Vol] 265 U/L High 24 - 170 U/L [facility] No Panel Informationon 03-26 Interpretation and review of laboratory results Abnormal [facility] CT LUMBAR SPINE WO CONTon CT LUMBAR SPINE WO CONT Normal [facility] 36on 03-21-2025 36 Labs are in [facility] Normal [facility] BASIC METABOLIC PANELon 05 Anion gap [Moles/Vol] 11 mmol/L Normal 5-15 [facility] Comment on above: Performed By: #### B MP ####[facility] ([facility])[address], [place] [address] VIR Calcium [Mass/Vol] 9.4 mg/dL Normal 8.5-10.5 [facility] Comment on above: Performed By: #### B MP ####[facility] ([facility])[address], [place] [address] VIR Chloride [Moles/Vol] 99 mmol/L Normal 98-109 [facility] Comment on above: Performed By: #### B MP ####[facility] ([facility])[address], [place] [address] VIR CO2 [Moles/Vol] 28 mmol/L Normal 22-32 [facility] Comment on above: Performed By: #### B MP ####[facility] ([facility])[address], [place] [address] VIR Creatinine [Mass/Vol] 1.83 mg/dL High 0.40-1.00 [facility] Comment on above: Result Comment: METH OD TRACEABLE TO IDMS STANDARD Performed By: #### B MP ####[facility] ([facility])[address], [place] [address] VIR GFR/1.73 sq M.predicted among non-blacks MDRD (S/P/Bld) [Vol rate/Area] 28 mL/min/{1.73_m2} Low >=60 [facility] Comment on above: Result Comment: Repo rted eGFR is based on theCKD-EPI 2020 equation that doesnot use a race coefficient. Performed By: #### B MP ####[facility] ([facility])[address], [place] [address] VIR Glucose [Mass/Vol] 286 mg/dL High 65-99 [facility] Comment on above: Performed By: #### B MP ####[facility] ([facility])[address], [place] [address] VIR Potassium [Moles/Vol] 4.4 mmol/L Normal 3.5-5.0 [facility] Comment on above: Performed By: #### B MP ####[facility] ([facility])[address], [place] [address] VIR Sodium [Moles/Vol] 138 mmol/L Normal 134-146 [facility] Comment on above: Performed By: #### B MP ####[facility] ([facility])[address], [place] [address] VIR Urea nitrogen [Mass/Vol] 33 mg/dL High 5-27 [facility] Comment on above: Performed By: #### B MP ####[facility] ([facility])[address], [place] [address] VIR CBC WITH AUTO DIFFERENTIALon 03-20-2025 CELLAVISION DIFFERENTIAL TYPE MANUAL DIFFERENTIAL Normal [facility] Comment on above: Order Comment: Abnor mal CBC with auto diff reflexes to a manual diff Result Comment: This is an appended report. These results have been appended to a previously preliminary verified report. Performed By: #### C BCA ####[facility] ([facility])[address], [place] [address] VIR CELLAVISION ELLIPTOCYTES IN BLOOD BY LIGHT MICROSCOPY 1+ Normal [facility] Comment on above: Order Comment: Abnor mal CBC with auto diff reflexes to a manual diff Result Comment: This is an appended report. These results have been appended to a previously preliminary verified report. Performed By: #### C BCA ####[facility] ([facility])[address], [place] [address] VIR CELLAVISION EOSINOPHILS ABSOLUTE COUNT (10*3/UL) BY MANUAL COUNT 0.4 10*3/uL Normal [facility] Comment on above: Order Comment: Abnor mal CBC with auto diff reflexes to a manual diff Result Comment: This is an appended report. These results have been appended to a previously preliminary verified report. Performed By: #### C BCA ####[facility] ([facility])[address], [place] [address] VIR CELLAVISION EOSINOPHILS PERCENT BY MANUAL COUNT 7 % Normal [facility] Comment on above: Order Comment: Abnor mal CBC with auto diff reflexes to a manual diff Result Comment: This is an appended report. These results have been appended to a previously preliminary verified report. Performed By: #### C BCA ####[facility] ([facility])[address], [place] [address] VIR CELLAVISION LYMPHOCYTES ABSOLUTE COUNT (10*3/UL) BY MANUAL COUNT 1.7 10*3/uL Normal [facility] Comment on above: Order Comment: Abnor mal CBC with auto diff reflexes to a manual diff Result Comment: This is an appended report. These results have been appended to a previously preliminary verified report. Performed By: #### C BCA ####[facility] ([facility])[address], [place] [address] VIR CELLAVISION LYMPHOCYTES RELATIVE PERCENT BY MANUAL COUNT 28 % Normal [facility] Comment on above: Order Comment: Abnor mal CBC with auto diff reflexes to a manual diff Result Comment: This is an appended report. These results have been appended to a previously preliminary verified report. Performed By: #### C BCA ####[facility] ([facility])[address], [place] [address] VIR CELLAVISION MONOCYTES ABSOLUTE COUNT (10*3/UL) IN BLOOD BY MANUAL COUNT 0.2 10*3/uL Normal [facility] Comment on above: Order Comment: Abnor mal CBC with auto diff reflexes to a manual diff Result Comment: This is an appended report. These results have been appended to a previously preliminary verified report. Performed By: #### C BCA ####[facility] ([facility])[address], [place] [address] VIR CELLAVISION MONOCYTES RELATIVE PERCENT BY MANUAL COUNT 4 % Normal [facility] Comment on above: Order Comment: Abnor mal CBC with auto diff reflexes to a manual diff Result Comment: This is an appended report. These results have been appended to a previously preliminary verified report. Performed By: #### C BCA ####[facility] ([facility])[address], [place] [address] VIR CELLAVISION NEUTROPHILS ABSOLUTE COUNT BY MANUAL COUNT 3.9 10*3/uL Normal [facility] Comment on above: Order Comment: Abnor mal CBC with auto diff reflexes to a manual diff Result Comment: This is an appended report. These results have been appended to a previously preliminary verified report. Performed By: #### C BCA ####[facility] ([facility])[address], [place] [address] VIR CELLAVISION NEUTROPHILS RELATIVE PERCENT BY MANUAL COUNT 61 % Normal [facility] Comment on above: Order Comment: Abnor mal CBC with auto diff reflexes to a manual diff Result Comment: This is an appended report. These results have been appended to a previously preliminary verified report. Performed By: #### C BCA ####[facility] ([facility])[address], [place] [address] VIR Erythrocyte distribution width (RBC) [Ratio] 17.9 % High 11.5-15 [facility] Comment on above: Order Comment: Abnor mal CBC with auto diff reflexes to a manual diff Performed By: #### C BCA ####[facility] ([facility])[address], [place] [address] VIR Hematocrit (Bld) [Volume fraction] 30.5 % Low 35-47 [facility] Comment on above: Order Comment: Abnor mal CBC with auto diff reflexes to a manual diff Performed By: #### C BCA ####[facility] ([facility])[address], [place] [address] VIR Hemoglobin (Bld) [Mass/Vol] 10.0 g/dL Low 11.7-15.5 [facility] Comment on above: Order Comment: Abnor mal CBC with auto diff reflexes to a manual diff Performed By: #### C BCA ####[facility] ([facility])[address], [place] [address] VIR MCH (RBC) [Entitic mass] 28.5 pg Normal 27-34 [facility] Comment on above: Order Comment: Abnor mal CBC with auto diff reflexes to a manual diff Performed By: #### C BCA ####[facility] ([facility])[address], [place] [address] VIR MCHC (RBC) [Mass/Vol] 33.0 g/dL Normal 32-36 [facility] Comment on above: Order Comment: Abnor mal CBC with auto diff reflexes to a manual diff Performed By: #### C BCA ####[facility] ([facility])[address], [place] [address] VIR MCV (RBC) [Entitic vol] 86 fL Normal 80-100 [facility] Comment on above: Order Comment: Abnor mal CBC with auto diff reflexes to a manual diff Performed By: #### C BCA ####[facility] ([facility])[address], [place] [address] VIR Platelet mean volume (Bld) [Entitic vol] 9.2 fL Normal 7-12 [facility] Comment on above: Order Comment: Abnor mal CBC with auto diff reflexes to a manual diff Performed By: #### C BCA ####[facility] ([facility])[address], [place] [address] VIR Platelets (Bld) [#/Vol] 261 10*3/uL Normal 150-450 [facility] Comment on above: Order Comment: Abnor mal CBC with auto diff reflexes to a manual diff Performed By: #### C BCA ####[facility] ([facility])[address] [facility] [address], [place] [address] VIR RBC COUNT 3.52 X10E12/L Low 3.8-5.2 [facility] Comment on above: Order Comment: Abnor mal CBC with auto diff reflexes to a manual diff Performed By: #### C BCA ####[facility] ([facility])[address], [place] [address] VIR WBC (Bld) [#/Vol] 6.2 10*3/uL Normal 4-11 [facility] Comment on above: Order Comment: Abnor mal CBC with auto diff reflexes to a manual diff Performed By: #### C BCA ####[facility] ([facility])[address] [facility] [address], [place] [address] VIR CBC WITH AUTO DIFFERENTIALon 03-19-2025 BASOPHILS ABSOLUTE COUNT (10*3/UL) BY AUTOMATED COUNT 0.1 10*3/uL Normal [facility] Comment on above: Performed By: #### C BCA ####[facility] [place] [facility] ([address] [address] VIR BASOPHILS RELATIVE PERCENT BY AUTOMATED COUNT 1.3 % Normal [facility] Comment on above: Performed By: #### C BCA ####[facility] [place] [facility] ([address] [address] VIR CELLAVISION DIFFERENTIAL TYPE AUTOMATED DIFFERENTIAL Normal [facility] Comment on above: Performed By: #### C BCA ####[facility] [place] [facility] ([address] [place] [address] VIR Eosinophils (Bld) [#/Vol] 0.6 10*3/uL Normal [facility] Comment on above: Performed By: #### C BCA ####[facility] [place] ([address] [address] VIR EOSINOPHILS RELATIVE PERCENT BY AUTOMATED COUNT 6.9 % Normal [facility] Comment on above: Performed By: #### C BCA ####[facility] [place] ([address] [address] VIR Erythrocyte distribution width (RBC) [Ratio] 17.5 % High 11.5-15 [facility] Comment on above: Performed By: #### C BCA ####[facility] [place] ([address] [address] VIR Hematocrit (Bld) [Volume fraction] 27.7 % Low 35-47 [facility] Comment on above: Performed By: #### C BCA ####[facility] [place] ([address] [address] VIR Hemoglobin (Bld) [Mass/Vol] 9.3 g/dL Low 11.7-15.5 [facility] Comment on above: Performed By: #### C BCA ####[facility] ([address] [address] VIR LYMPHOCYTES ABSOLUTE COUNT (10*3/UL) BY AUTOMATED COUNT 2.5 10*3/uL Normal [facility] Comment on above: Performed By: #### C BCA ####[facility] [place] ([address] [address] VIR LYMPHOCYTES RELATIVE PERCENT BY AUTOMATED COUNT 29.1 % Normal [facility] Comment on above: Performed By: #### C BCA ####[facility] [place] ([address] [address] VIR MCH (RBC) [Entitic mass] 28.9 pg Normal 27-34 [facility] Comment on above: Performed By: #### C BCA ####[facility] [place] ([address] [place] [address] VIR MCHC (RBC) [Mass/Vol] 33.7 g/dL Normal 32-36 [facility] Comment on above: Performed By: #### C BCA ####[facility] ([address] [address] VIR MCV (RBC) [Entitic vol] 86 fL Normal 80-100 [facility] Comment on above: Performed By: #### C BCA ####[facility] ([address] [place] [address] VIR MONOCYTES ABSOLUTE COUNT (10*3/UL) BY AUTOMATED COUNT 0.9 10*3/uL Normal [facility] Comment on above: Performed By: #### C BCA ####[facility] ([address] [address] VIR MONOCYTES RELATIVE PERCENT BY AUTOMATED COUNT 10.6 % Normal [facility] Comment on above: Performed By: #### C BCA ####[facility] ([address] [address] VIR NEUTROPHILS ABSOLUTE COUNT BY AUTOMATED COUNT 4.4 10*3/uL Normal [facility] Comment on above: Performed By: #### C BCA ####[facility] ([address] [address] VIR NEUTROPHILS RELATIVE PERCENT BY AUTOMATED COUNT 52.1 % Normal [facility] Comment on above: Performed By: #### C BCA ####[facility] ([address] [address] VIR Platelet mean volume (Bld) [Entitic vol] 8.8 fL Normal 7-12 [facility] Comment on above: Performed By: #### C BCA ####[facility] ([address] [place] [address] VIR Platelets (Bld) [#/Vol] 274 10*3/uL Normal 150-450 [facility] Comment on above: Performed By: #### C BCA ####[facility] ([facility])[address] [place], [place] [address] [place] [address] VIR RBC COUNT 3.22 X10E12/L Low 3.8-5.2 [facility] Comment on above: Performed By: #### C BCA ####[facility] ([address] [place] [address] VIR WBC (Bld) [#/Vol] 8.5 10*3/uL Normal 4-11 [facility] Comment on above: Performed By: #### C BCA ####[facility] ([facility])[address] [place], [place] [address] [place] [address] VIR COMPREHENSIVE METABOLIC PANE Dickson 03-19-2025 Albumin [Mass/Vol] 3.3 g/dL Normal 3.2-5.3 [facility] Comment on above: Performed By: #### C MP ####[facility] ([address] [place] [address] VIR ALP [Catalytic activity/Vol] 107 U/L Normal 39-130 [facility] Comment on above: Performed By: #### C MP ####[facility] ([address] [place] [address] VIR ALT [Catalytic activity/Vol] 17 U/L Normal <=31 [facility] Comment on above: Performed By: #### C MP ####[facility] ([address] [place] [address] VIR Anion gap [Moles/Vol] 10 mmol/L Normal 5-15 [facility] Comment on above: Performed By: #### C MP ####[facility] ([address] [place] [address] VIR AST [Catalytic activity/Vol] 30 U/L Normal <=41 [facility] Comment on above: Performed By: #### C MP ####[facility] ([address] [place] [address] VIR Bilirubin [Mass/Vol] 0.4 mg/dL Normal 0.3-1.2 [facility] Comment on above: Performed By: #### C MP ####[facility] ([address] [place] [address] VIR Calcium [Mass/Vol] 8.9 mg/dL Normal 8.5-10.5 [facility] Comment on above: Performed By: #### C MP ####[facility] ([address] [place] [address] VIR Chloride [Moles/Vol] 101 mmol/L Normal 98-109 [facility] Comment on above: Performed By: #### C MP ####[facility] ([address] [place] [address] VIR CO2 [Moles/Vol] 26 mmol/L Normal 22-32 [facility] Comment on above: Performed By: #### C MP ####[facility] ([address] [place] [address] VIR Creatinine [Mass/Vol] 1.83 mg/dL High 0.40-1.00 [facility] Comment on above: Result Comment: METH OD TRACEABLE TO IDMS STANDARD Performed By: #### C MP ####[facility] ([address] [place] [address] VIR GFR/1.73 sq M.predicted among non-blacks MDRD (S/P/Bld) [Vol rate/Area] 28 mL/min/{1.73_m2} Low >=60 [facility] Comment on above: Result Comment: eGFR not reported due to non-numeric value for Creatinine.Reported eGFR is based on theCKD-EPI 2020 equation that doesnot use a race coefficient. Performed By: #### C MP ####[facility] ([address] [place] [address] VIR Glucose [Mass/Vol] 152 mg/dL High 65-99 [facility] Comment on above: Performed By: #### C MP ####[facility] ([address] [address] VIR Potassium [Moles/Vol] 4.3 mmol/L Normal 3.5-5.0 [facility] Comment on above: Performed By: #### C MP ####[facility] ([address] [address] VIR Protein [Mass/Vol] 7.2 g/dL Normal 6.0-8.0 [facility] Comment on above: Performed By: #### C MP ####[facility] ([address] [place] [address] VIR Sodium [Moles/Vol] 137 mmol/L Normal 134-146 [facility] Comment on above: Performed By: #### C MP ####[facility] ([address] [place] [address] VIR Urea nitrogen [Mass/Vol] 35 mg/dL High 5- [facility] Comment on above: Performed By: #### C MP ####[facility] ([address] [place] [address] VIR MAGNESIUMon 03-19-2025 Magnesium [Mass/Vol] 1.8 mg/dL Normal 1.8-2.6 [facility] Comment on above: Performed By: #### M G ####[facility] ([address] [place] [address] VIR BEDSIDE GLUCOSEon 03-18-2025 Glucose [Mass/Vol] 228 mg/dL High 65-99 [facility] Comment on above: Performed By: #### B EDG ####[facility] ([place] [address] [place] [address] VIR Glucose [Mass/Vol] 331 mg/dL High 65-99 [facility] Comment on above: Performed By: #### B EDG ####[facility] ([address] [place] [address] VIR Glucose [Mass/Vol] 259 mg/dL High 65-99 [facility] Comment on above: Performed By: #### B EDG ####[facility] ([address] [place] [address] VIR CBC WITH AUTO DIFFERENTIALon 03-18-2025 BASOPHILS ABSOLUTE COUNT (10*3/UL) BY AUTOMATED COUNT 0.1 10*3/uL Normal [facility] Comment on above: Performed By: #### C BCA ####[facility] ([address] [place] [address] VIR BASOPHILS RELATIVE PERCENT BY AUTOMATED COUNT 0.6 % Normal [facility] Comment on above: Performed By: #### C BCA ####[facility] ([address] [place] [address] VIR Eosinophils (Bld) [#/Vol] 0.5 10*3/uL Normal [facility] Comment on above: Performed By: #### C BCA ####[facility] ([address] [place] [address] VIR EOSINOPHILS RELATIVE PERCENT BY AUTOMATED COUNT 6.2 % Normal [facility] Comment on above: Performed By: #### C BCA ####[facility] ([address] [place] [address] VIR Erythrocyte distribution width (RBC) [Ratio] 17.6 % High 11.5-15 [facility] Comment on above: Performed By: #### C BCA ####[facility] ([address] [place] [address] VIR Hematocrit (Bld) [Volume fraction] 28.8 % Low 35-47 [facility] Comment on above: Performed By: #### C BCA ####[facility] ([address] [address] VIR Hemoglobin (Bld) [Mass/Vol] 9.7 g/dL Low 11.7-15.5 [facility] Comment on above: Performed By: #### C BCA ####[facility] ([address] [address] VIR LYMPHOCYTES ABSOLUTE COUNT (10*3/UL) BY AUTOMATED COUNT 2.3 10*3/uL Normal [facility] Comment on above: Performed By: #### C BCA ####[facility] ([address] [address] VIR LYMPHOCYTES RELATIVE PERCENT BY AUTOMATED COUNT 27.4 % Normal [facility] Comment on above: Performed By: #### C BCA ####[facility] ([address] [address] VIR MCH (RBC) [Entitic mass] 28.5 pg Normal 27-34 [facility] Comment on above: Performed By: #### C BCA ####[facility] ([address] [address] VIR MCHC (RBC) [Mass/Vol] 33.6 g/dL Normal 32-36 [facility] Comment on above: Performed By: #### C BCA ####[facility] ([address] [address] VIR MCV (RBC) [Entitic vol] 84.9 fL Normal 80-100 [facility] Comment on above: Performed By: #### C BCA ####[facility] ([address] [address] VIR MONOCYTES ABSOLUTE COUNT (10*3/UL) BY AUTOMATED COUNT 1.0 10*3/uL Normal [facility] Comment on above: Performed By: #### C BCA ####[facility] ([address] [address] VIR MONOCYTES RELATIVE PERCENT BY AUTOMATED COUNT 11.3 % Normal [facility] Comment on above: Performed By: #### C BCA ####[facility] ([address] [address] VIR NEUTROPHILS ABSOLUTE COUNT BY AUTOMATED COUNT 4.6 10*3/uL Normal [facility] Comment on above: Performed By: #### C BCA ####[facility] ([address] [address] VIR NEUTROPHILS RELATIVE PERCENT BY AUTOMATED COUNT 54.5 % Normal [facility] Comment on above: Performed By: #### C BCA ####[facility] ([address] [address] VIR Platelet mean volume (Bld) [Entitic vol] 8.2 fL Normal 7-12 [facility] Comment on above: Performed By: #### C BCA ####[facility] ([address] [address] VIR Platelets (Bld) [#/Vol] 253 10*3/uL Normal 150-450 [facility] Comment on above: Performed By: #### C BCA ####[facility] ([address] [address] VIR RBC COUNT 3.40 X10E12/L Low 3.8-5.2 [facility] Comment on above: Performed By: #### C BCA ####[facility] ([address] [address] VIR WBC (Bld) [#/Vol] 8.5 10*3/uL Normal 4-11 [facility] Comment on above: Performed By: #### C BCA ####[facility] [address] [place] [address] VIR CK TOTALon 03-18-2025 CPK 262 U/L High 24-170 [facility] Comment on above: Performed By: #### C PK ####[facility] ([address] [place] [address] VIR COMPREHENSIVE METABOLIC PANE Dickson 03-18-2025 Albumin [Mass/Vol] 3.5 g/dL Normal 3.2-5.3 [facility] Comment on above: Performed By: #### C MP ####[facility] ([place] [address] [place] [address] VIR ALP [Catalytic activity/Vol] 110 U/L Normal 39-130 [facility] Comment on above: Performed By: #### C MP ####[address] [address] VIR ALT [Catalytic activity/Vol] 16 U/L Normal <=31 [facility] Comment on above: Performed By: #### C MP ####[facility] ([address] [place] [address] VIR Anion gap [Moles/Vol] 10 mmol/L Normal 5-15 [facility] Comment on above: Performed By: #### C MP ####[facility] ([place] [address] [place] [address] VIR AST [Catalytic activity/Vol] 25 U/L Normal <=41 [facility] Comment on above: Performed By: #### C MP ####[facility] ([place] [address] [place] [address] VIR Bilirubin [Mass/Vol] 0.4 mg/dL Normal 0.3-1.2 [facility] Comment on above: Performed By: #### C MP ####[facility] ([place] [address] [place] [address] VIR Calcium [Mass/Vol] 9.2 mg/dL Normal 8.5-10.5 [facility] Comment on above: Performed By: #### C MP ####[facility] ([facility])[address] [place] [address] [place] [address] VIR Chloride [Moles/Vol] 99 mmol/L Normal 98-109 [facility] Comment on above: Performed By: #### C MP ####[facility] ([address] [place] [address] VIR CO2 [Moles/Vol] 26 mmol/L Normal 22-32 [facility] Comment on above: Performed By: #### C MP ####[facility] ([address] [place] [address] VIR Creatinine [Mass/Vol] 1.80 mg/dL High 0.40-1.00 [facility] Comment on above: Result Comment: METH OD TRACEABLE TO IDMS STANDARD Performed By: #### C MP ####[facility] ([address] [place] [address] VIR GFR/1.73 sq M.predicted among non-blacks MDRD (S/P/Bld) [Vol rate/Area] 28 mL/min/{1.73_m2} Low >=60 [facility] Comment on above: Result Comment: Repo rted eGFR is based on theCKD-EPI 2020 equation that doesnot use a race coefficient. Performed By: #### C MP ####[facility] ([address] [place] [address] VIR Glucose [Mass/Vol] 145 mg/dL High 65-99 [facility] Comment on above: Performed By: #### C MP ####[facility] ([address] [place] [address] VIR Potassium [Moles/Vol] 3.8 mmol/L Normal 3.5-5.0 [facility] Comment on above: Performed By: #### C MP ####[facility] ([address] [place] [address] VIR Protein [Mass/Vol] 7.6 g/dL Normal 6.0-8.0 [facility] Comment on above: Performed By: #### C MP ####[facility] ([address] [place] [address] VIR Sodium [Moles/Vol] 135 mmol/L Normal 134-146 [facility] Comment on above: Performed By: #### C MP ####[facility] ([address] [place] [address] VIR Urea nitrogen [Mass/Vol] 27 mg/dL Normal 5-27 [facility] Comment on above: Performed By: #### C MP ####[facility] ([address] [place] [address] VIR MAGNESIUMon 03-18-2025 Magnesium [Mass/Vol] 1.7 mg/dL Low 1.8-2.6 [facility] Comment on above: Performed By: #### M G ####[facility] ([address] [place] [address] VIR BEDSIDE GLUCOSEon 03-17-2025 Glucose [Mass/Vol] 216 mg/dL High 65-[address] [place] [address] Comment on above: Performed By: #### B EDG ####[facility] ([address] [place] [address] VIR Glucose [Mass/Vol] 170 mg/dL High -[address] [place] [address] Comment on above: Performed By: #### B EDG ####[facility] ([address] [place] [address] VIR Glucose [Mass/Vol] 278 mg/dL High 65- [facility] Comment on above: Performed By: #### B EDG ####[facility] ([address] [address] VIR CBC WITH AUTO DIFFERENTIALon 03-17-2025 BASOPHILS ABSOLUTE COUNT (10*3/UL) BY AUTOMATED COUNT 0.0 10*3/uL Normal [facility] Comment on above: Performed By: #### C BCA ####[facility] ([address] [address] VIR BASOPHILS RELATIVE PERCENT BY AUTOMATED COUNT 0.5 % Normal [facility] Comment on above: Performed By: #### C BCA ####[address] [address] VIR CELLAVISION DIFFERENTIAL TYPE AUTOMATED DIFFERENTIAL Normal [facility] Comment on above: Performed By: #### C BCA ####[address] [address] VIR Eosinophils (Bld) [#/Vol] 0.5 10*3/uL Normal [facility] Comment on above: Performed By: #### C BCA ####[address] [address] VIR EOSINOPHILS RELATIVE PERCENT BY AUTOMATED COUNT 5.5 % Normal [facility] Comment on above: Performed By: #### C BCA ####[facility] ([address] [address] VIR Erythrocyte distribution width (RBC) [Ratio] 17.8 % High 11.5-15 [facility] Comment on above: Performed By: #### C BCA ####[facility] ([address] [address] VIR Hematocrit (Bld) [Volume fraction] 29.6 % Low 35-47 [facility] Comment on above: Performed By: #### C BCA ####[facility] ([address] [place] [address] VIR Hemoglobin (Bld) [Mass/Vol] 9.7 g/dL Low 11.7-15.5 [facility] Comment on above: Performed By: #### C BCA ####[facility] ([address] [address] VIR LYMPHOCYTES ABSOLUTE COUNT (10*3/UL) BY AUTOMATED COUNT 1.6 10*3/uL Normal [facility] Comment on above: Performed By: #### C BCA ####[facility] ([address] [address] VIR LYMPHOCYTES RELATIVE PERCENT BY AUTOMATED COUNT 17.7 % Normal [facility] Comment on above: Performed By: #### C BCA ####[facility] ([address] [address] VIR MCH (RBC) [Entitic mass] 28.4 pg Normal 27-34 [facility] Comment on above: Performed By: #### C BCA ####[facility] ([address] [address] VIR MCHC (RBC) [Mass/Vol] 32.9 g/dL Normal 32-36 [facility] Comment on above: Performed By: #### C BCA ####[facility] ([address] [address] VIR MCV (RBC) [Entitic vol] 86 fL Normal 80-100 [facility] Comment on above: Performed By: #### C BCA ####[facility] ([address] [address] VIR MONOCYTES ABSOLUTE COUNT (10*3/UL) BY AUTOMATED COUNT 0.9 10*3/uL Normal [facility] Comment on above: Performed By: #### C BCA ####[facility] ([address] [address] VIR MONOCYTES RELATIVE PERCENT BY AUTOMATED COUNT 10.6 % Normal [facility] Comment on above: Performed By: #### C BCA ####[facility] ([address] [place] [address] VIR NEUTROPHILS ABSOLUTE COUNT BY AUTOMATED COUNT 5.8 10*3/uL Normal [facility] Comment on above: Performed By: #### C BCA ####[facility] ([address] [place] [address] VIR NEUTROPHILS RELATIVE PERCENT BY AUTOMATED COUNT 65.7 % Normal [facility] Comment on above: Performed By: #### C BCA ####[facility] ([address] [address] VIR Platelet mean volume (Bld) [Entitic vol] 8.2 fL Normal 7-12 [facility] Comment on above: Performed By: #### C BCA ####[facility] ([address] [address] VIR Platelets (Bld) [#/Vol] 280 10*3/uL Normal 150-450 [facility] Comment on above: Performed By: #### C BCA ####[facility] ([address] [place] [address] VIR RBC COUNT 3.44 X10E12/L Low 3.8-5.2 [facility] Comment on above: Performed By: #### C BCA ####[facility] ([address] [place] [address] VIR WBC (Bld) [#/Vol] 8.8 10*3/uL Normal 4-11 [facility] Comment on above: Performed By: #### C BCA ####[facility] ([address] [place] [address] VIR COMPREHENSIVE METABOLIC PANE [facility] 03-17-2025 Albumin [Mass/Vol] 3.5 g/dL Normal 3.2-5.3 [facility] Comment on above: Performed By: #### C MP ####[facility] ([address] [place] [address] VIR ALP [Catalytic activity/Vol] 119 U/L Normal 39-130 [facility] Comment on above: Performed By: #### C MP ####[facility] ([address] [place] [address] VIR ALT [Catalytic activity/Vol] 17 U/L Normal <=31 [facility] Comment on above: Performed By: #### C MP ####[facility] ([address] [place] [address] VIR Anion gap [Moles/Vol] 12 mmol/L Normal 5-15 [facility] Comment on above: Performed By: #### C MP ####[facility] ([address] [place] [address] VIR AST [Catalytic activity/Vol] 23 U/L Normal <=41 [facility] Comment on above: Performed By: #### C MP ####[facility] ([address] [place] [address] VIR Bilirubin [Mass/Vol] 0.6 mg/dL Normal 0.3-1.2 [facility] Comment on above: Performed By: #### C MP ####[facility] ([address] [place] [address] VIR Calcium [Mass/Vol] 9.4 mg/dL Normal 8.5-10.5 [facility] Comment on above: Performed By: #### C MP ####[facility] ([address] [place] [address] VIR Chloride [Moles/Vol] 97 mmol/L Low 98-109 [facility] Comment on above: Performed By: #### C MP ####[facility] ([address] [place] [address] VIR CO2 [Moles/Vol] 25 mmol/L Normal 22-32 [facility] Comment on above: Performed By: #### C MP ####[facility] ([address] [place] [address] VIR Creatinine [Mass/Vol] 1.53 mg/dL High 0.40-1.00 [facility] Comment on above: Result Comment: METH OD TRACEABLE TO IDMS STANDARD Performed By: #### C MP ####[facility] ([address] [address] VIR GFR/1.73 sq M.predicted among non-blacks MDRD (S/P/Bld) [Vol rate/Area] 35 mL/min/{1.73_m2} Low >=60 [facility] Comment on above: Result Comment: eGFR not reported due to non-numeric value for Creatinine.Reported eGFR is based on theCKD-EPI 2020 equation that doesnot use a race coefficient. Performed By: #### C MP ####[facility] ([address] [place] [address] VIR Glucose [Mass/Vol] 153 mg/dL High 65-99 [facility] Comment on above: Performed By: #### C MP ####[facility] ([address] [place] [address] VIR Potassium [Moles/Vol] 3.9 mmol/L Normal 3.5-5.0 [facility] Comment on above: Performed By: #### C MP ####[facility] ([address] [place] [address] VIR Protein [Mass/Vol] 7.9 g/dL Normal 6.0-8.0 [facility] Comment on above: Performed By: #### C MP ####[facility] ([facility])[address] [place] [address] VIR Sodium [Moles/Vol] 134 mmol/L Normal 134-146 [facility] Comment on above: Performed By: #### C MP ####[facility] ([facility])[address] [place] [address] VIR Urea nitrogen [Mass/Vol] 24 mg/dL Normal - [facility] Comment on above: Performed By: #### C MP ####[facility] [place] [address] VIR MAGNESIUMon 03-17-2025 Magnesium [Mass/Vol] 1.8 mg/dL Normal 1.8-2.6 [facility] Comment on above: Performed By: #### M G ####[facility] ([address] [place] [address] VIR 36on 03-16-2025 36 Patient's daughter c alled to cancel upcoming appointment with Cliff on 03/19/25 as patient is currently hospitalized. Daughter stated she will reschedule when patient is discharged and back at SNF. Normal [facility] 36 Spoke with Raina at [facility] infusion. [...] Er visit to determine pt disposition. Normal [facility] BASIC METABOLIC PANELon Anion gap [Moles/Vol] 9 mmol/L Normal - [facility] Comment on above: Performed By: #### B MP ####[facility])[address] [place] [address] VIR Calcium [Mass/Vol] 9.6 mg/dL Normal 8.5-10.5 [facility] Comment on above: Performed By: #### B MP ####[facility] ([address] [place] [address] VIR Chloride [Moles/Vol] 102 mmol/L Normal 98-109 [facility] Comment on above: Performed By: #### B MP ####[facility] ([address] [place] [address] VIR CO2 [Moles/Vol] 27 mmol/L Normal 22-32 [facility] Comment on above: Performed By: #### B MP ####[facility] ([address] [address] VIR Creatinine [Mass/Vol] 1.59 mg/dL High 0.40-1.00 [facility] Comment on above: Result Comment: METH OD TRACEABLE TO IDMS STANDARD Performed By: #### B MP ####[facility] ([address] [address] VIR GFR/1.73 sq M.predicted among non-blacks MDRD (S/P/Bld) [Vol rate/Area] 33 mL/min/{1.73_m2} Low >=60 [facility] Comment on above: Result Comment: eGFR not reported due to non-numeric value for Creatinine.Reported eGFR is based on theCKD-EPI 1 equation that doesnot use a race coefficient. Performed By: #### B MP ####[facility] ([address] [place] [address] VIR Glucose [Mass/Vol] 179 mg/dL High 65-99 [facility] Comment on above: Performed By: #### B MP ####[facility] ([address] [address] VIR Potassium [Moles/Vol] 4.6 mmol/L Normal 3.5-5.0 [facility] Comment on above: Performed By: #### B MP ####[facility] ([address] [place] [address] VIR Sodium [Moles/Vol] 138 mmol/L Normal 134-146 [facility] Comment on above: Performed By: #### B MP ####[facility] ([address] [place] [address] VIR Urea nitrogen [Mass/Vol] 25 mg/dL Normal 5-27 [facility] Comment on above: Performed By: #### B MP ####[facility] ([address] [address] VIR BEDSIDE GLUCOSEon 03-16-2025 Glucose [Mass/Vol] 228 mg/dL High 65-99 [facility] Comment on above: Performed By: #### B EDG ####[facility] ([address] [address] VIR Glucose [Mass/Vol] 160 mg/dL High 65-99 [facility] Comment on above: Performed By: #### B EDG ####[facility] ([address] [address] VIR CBC WITH AUTO DIFFERENTIALon 03-16-2025 BASOPHILS ABSOLUTE COUNT (10*3/UL) BY AUTOMATED COUNT 0.1 10*3/uL Normal [facility] Comment on above: Performed By: #### C BCA ####[facility] ([address] [place] [address] VIR BASOPHILS RELATIVE PERCENT BY AUTOMATED COUNT 0.6 % Normal [facility] Comment on above: Performed By: #### C BCA ####[facility] ([address] [place] [address] VIR CELLAVISION DIFFERENTIAL TYPE AUTOMATED DIFFERENTIAL Normal [facility] Comment on above: Performed By: #### C BCA ####[facility] ([address] [place] [address] VIR Eosinophils (Bld) [#/Vol] 0.2 10*3/uL Normal [facility] Comment on above: Performed By: #### C BCA ####[facility] ([address] [place] [address] VIR EOSINOPHILS RELATIVE PERCENT BY AUTOMATED COUNT 2.4 % Normal [facility] Comment on above: Performed By: #### C BCA ####[facility] ([address] [place] [address] VIR Erythrocyte distribution width (RBC) [Ratio] 18.0 % High 11.5-15 [facility] Comment on above: Performed By: #### C BCA ####[facility] ([address] [place] [address] VIR Hematocrit (Bld) [Volume fraction] 29.4 % Low 35-47 [facility] Comment on above: Performed By: #### C BCA ####[facility] ([address] [place] [address] VIR Hemoglobin (Bld) [Mass/Vol] 9.7 g/dL Low 11.7-15.5 [facility] Comment on above: Performed By: #### C BCA ####[facility] ([address] [place] [address] VIR LYMPHOCYTES ABSOLUTE COUNT (10*3/UL) BY AUTOMATED COUNT 1.2 10*3/uL Normal [facility] Comment on above: Performed By: #### C BCA ####[facility] ([address] [place] [address] VIR LYMPHOCYTES RELATIVE PERCENT BY AUTOMATED COUNT 15.2 % Normal [facility] Comment on above: Performed By: #### C BCA ####[facility] ([address] [place] [address] VIR MCH (RBC) [Entitic mass] 28.2 pg Normal 27-34 [facility] Comment on above: Performed By: #### C BCA ####[facility] ([facility])[address] [place] [address].[place] [address] VIR MCHC (RBC) [Mass/Vol] 32.9 g/dL Normal 32-36 [facility] Comment on above: Performed By: #### C BCA ####[facility] ([facility])[address] [place] [address].[place] [address] VIR MCV (RBC) [Entitic vol] 86 fL Normal 80-100 [facility] Comment on above: Performed By: #### C BCA ####[facility] ([address] [place] [address] VIR MONOCYTES ABSOLUTE COUNT (10*3/UL) BY AUTOMATED COUNT 0.7 10*3/uL Normal [facility] Comment on above: Performed By: #### C BCA ####[facility] ([address] [place] [address] VIR MONOCYTES RELATIVE PERCENT BY AUTOMATED COUNT 8.5 % Normal [facility] Comment on above: Performed By: #### C BCA ####[facility] ([address] [place] [address] VIR NEUTROPHILS ABSOLUTE COUNT BY AUTOMATED COUNT 5.9 10*3/uL Normal [facility] Comment on above: Performed By: #### C BCA ####[facility] ([address] [place] [address] VIR NEUTROPHILS RELATIVE PERCENT BY AUTOMATED COUNT 73.3 % Normal [facility] Comment on above: Performed By: #### C BCA ####[facility] ([address] [place] [address] VIR Platelet mean volume (Bld) [Entitic vol] 7.8 fL Normal 7-12 [facility] Comment on above: Performed By: #### C BCA ####[facility] ([address] [place] [address] VIR Platelets (Bld) [#/Vol] 275 10*3/uL Normal 150-450 [facility] Comment on above: Performed By: #### C BCA ####[facility] ([address] [place] [address] VIR RBC COUNT 3.43 X10E12/L Low 3.8-5.2 [facility] Comment on above: Performed By: #### C BCA ####[facility] ([address] [place] [address] VIR WBC (Bld) [#/Vol] 8.1 10*3/uL Normal 4-11 [facility] Comment on above: Performed By: #### C BCA ####[facility] ([address] [place] [address] VIR MAGNESIUMon 03-16-2025 Magnesium [Mass/Vol] 1.9 mg/dL Normal 1.8-2.6 [facility] Comment on above: Performed By: #### M G ####[facility] ([address] [place] [address] VIR TROP I, HIGH SENSITIVITY 1 H OURon 03-16-2025 TROPONIN I, HIGH SENSITIVITY 9 ng/L Normal <16 [facility] Comment on above: Performed By: #### T NIHS1 ####[facility] ([address] [place] [address] VIR TROPONIN I, HIGH SENSITIVITY 0 HOURon 03-16-2025 TROPONIN I, HIGH SENSITIVITY 9 ng/L Normal <16 [facility] Comment on above: Performed By: #### T NIHS0 ####[facility] ([address] [place] [address] VIR Telephoneon 03-16-2025 Telephone [phone] Jb Dee 1945 F Date Provider Department Center 03/16/20252046-JONATHAN DELGADO [facility] INF Juan Antonio Heal Family History Problem Relation Age of Onset Diabetes Mother Hypertension Father Coronary artery disease Father Family Status - Relation Status Age at Mother Father Normal [facility] XR CHEST 1 VWon 03-16-2025 XR CHEST 1 VW Normal [facility] 36on 03-15-2025 36 Call from daughter s tating her mother was having one of her bad days and pulled out her picc line. Daughter (Ileana) states she totalled her car and wonders if we can order her med to be infused at home? Wonders also about home care. Explained that I have to first find out if the medication can be covered through home infusion. Messages left for Benedicto and Raina at [facility] to pose this question. Normal [facility] BASIC METABOLIC PANELon 02-14 Anion gap [Moles/Vol] 10 mmol/L Normal 5-15 [facility] Comment on above: Performed By: #### B MP ####[facility] ([address] [place] [address] VIR Calcium [Mass/Vol] 9.0 mg/dL Normal 8.5-10.5 [facility] Comment on above: Performed By: #### B MP ####[facility] ([address] [place] [address] VIR Chloride [Moles/Vol] 100 mmol/L Normal 98-109 [facility] Comment on above: Performed By: #### B MP ####[facility] ([address] [address] VIR CO2 [Moles/Vol] 27 mmol/L Normal 22-32 [facility] Comment on above: Performed By: #### B MP ####[facility] ([address] [place] [address] VIR Creatinine [Mass/Vol] 1.85 mg/dL High 0.40-1.00 [facility] Comment on above: Result Comment: METH OD TRACEABLE TO IDMS STANDARD Performed By: #### B MP ####[facility] ([address] [address] VIR GFR/1.73 sq M.predicted among non-blacks MDRD (S/P/Bld) [Vol rate/Area] 28 mL/min/{1.73_m2} Low >=60 [facility] Comment on above: Result Comment: eGFR not reported due to non-numeric value for Creatinine.Reported eGFR is based on theCKD-EPI 2020 equation that doesnot use a race coefficient. Performed By: #### B MP ####[address] [address] VIR Glucose [Mass/Vol] 222 mg/dL High 65-99 [facility] Comment on above: Performed By: #### B MP ####[facility] ([address] [address] VIR Potassium [Moles/Vol] 4.3 mmol/L Normal 3.5-5.0 [facility] Comment on above: Performed By: #### B MP ####[address] [place] [address] VIR Sodium [Moles/Vol] 137 mmol/L Normal 134-146 [facility] Comment on above: Performed By: #### B MP ####[facility] ([address] [address] VIR Urea nitrogen [Mass/Vol] 33 mg/dL High 5-27 [facility] Comment on above: Performed By: #### B MP ####[address] [place] [address] VIR CBC WITH AUTO DIFFERENTIALon 03-12-2025 BASOPHILS ABSOLUTE COUNT (10*3/UL) BY AUTOMATED COUNT 0.1 10*3/uL Normal [facility] Comment on above: Order Comment: Abnor mal CBC with auto diff reflexes to a manual diff Performed By: #### C BCA ####[facility] ([facility])[address] [place] [address] VIR BASOPHILS RELATIVE PERCENT BY AUTOMATED COUNT 1.0 % Normal [facility] Comment on above: Order Comment: Abnor mal CBC with auto diff reflexes to a manual diff Performed By: #### C BCA ####[facility] ([facility])[address] [place] [address] VIR CELLAVISION DIFFERENTIAL TYPE AUTOMATED DIFFERENTIAL Normal [facility] Comment on above: Order Comment: Abnor mal CBC with auto diff reflexes to a manual diff Performed By: #### C BCA ####[facility] ([address] [address] VIR Eosinophils (Bld) [#/Vol] 0.4 10*3/uL Normal [facility] Comment on above: Order Comment: Abnor mal CBC with auto diff reflexes to a manual diff Performed By: #### C BCA ####[facility] ([address] [address] VIR EOSINOPHILS RELATIVE PERCENT BY AUTOMATED COUNT 6.3 % Normal [facility] Comment on above: Order Comment: Abnor mal CBC with auto diff reflexes to a manual diff Performed By: #### C BCA ####[facility] ([address] [address] VIR Erythrocyte distribution width (RBC) [Ratio] 18.5 % High 11.5-15 [facility] Comment on above: Order Comment: Abnor mal CBC with auto diff reflexes to a manual diff Performed By: #### C BCA ####[facility] ([address] [address] VIR Hematocrit (Bld) [Volume fraction] 28.2 % Low 35-47 [facility] Comment on above: Order Comment: Abnor mal CBC with auto diff reflexes to a manual diff Performed By: #### C BCA ####[facility])[address] [place] [address] VIR Hemoglobin (Bld) [Mass/Vol] 9.3 g/dL Low 11.7-15.5 [facility] Comment on above: Order Comment: Abnor mal CBC with auto diff reflexes to a manual diff Performed By: #### C BCA ####[facility])[address] [place] [address] VIR LYMPHOCYTES ABSOLUTE COUNT (10*3/UL) BY AUTOMATED COUNT 1.6 10*3/uL Normal [facility] Comment on above: Order Comment: Abnor mal CBC with auto diff reflexes to a manual diff Performed By: #### C BCA ####[facility] ([address] [address] VIR LYMPHOCYTES RELATIVE PERCENT BY AUTOMATED COUNT 23.6 % Normal [facility] Comment on above: Order Comment: Abnor mal CBC with auto diff reflexes to a manual diff Performed By: #### C BCA ####[facility] ([address] [address] VIR MCH (RBC) [Entitic mass] 28.4 pg Normal 27-34 [facility] Comment on above: Order Comment: Abnor mal CBC with auto diff reflexes to a manual diff Performed By: #### C BCA ####[facility])[address] [place] [address] VIR MCHC (RBC) [Mass/Vol] 32.9 g/dL Normal 32-36 [facility] Comment on above: Order Comment: Abnor mal CBC with auto diff reflexes to a manual diff Performed By: #### C BCA ####[facility] ([address] [address] VIR MCV (RBC) [Entitic vol] 87 fL Normal 80-100 [facility] Comment on above: Order Comment: Abnor mal CBC with auto diff reflexes to a manual diff Performed By: #### C BCA ####[facility] ([address] [address] VIR MONOCYTES ABSOLUTE COUNT (10*3/UL) BY AUTOMATED COUNT 0.7 10*3/uL Normal [facility] Comment on above: Order Comment: Abnor mal CBC with auto diff reflexes to a manual diff Performed By: #### C BCA ####[facility])[address] [place] [address] VIR MONOCYTES RELATIVE PERCENT BY AUTOMATED COUNT 10.1 % Normal [facility] Comment on above: Order Comment: Abnor mal CBC with auto diff reflexes to a manual diff Performed By: #### C BCA ####[facility] ([address] [address] VIR NEUTROPHILS ABSOLUTE COUNT BY AUTOMATED COUNT 3.9 10*3/uL Normal [facility] Comment on above: Order Comment: Abnor mal CBC with auto diff reflexes to a manual diff Performed By: #### C BCA ####[facility] ([address] [address] VIR NEUTROPHILS RELATIVE PERCENT BY AUTOMATED COUNT 59.0 % Normal [facility] Comment on above: Order Comment: Abnor mal CBC with auto diff reflexes to a manual diff Performed By: #### C BCA ####[facility])[address] [place] [address] VIR Platelet mean volume (Bld) [Entitic vol] 8.9 fL Normal 7-12 [facility] Comment on above: Order Comment: Abnor mal CBC with auto diff reflexes to a manual diff Performed By: #### C BCA ####[facility])[address] [place] [address] VIR Platelets (Bld) [#/Vol] 251 10*3/uL Normal 150-450 [facility] Comment on above: Order Comment: Abnor mal CBC with auto diff reflexes to a manual diff Performed By: #### C BCA ####[facility])[address] [place] [address] [place] [address] VIR RBC COUNT 3.26 X10E12/L Low 3.8-5.2 [facility] Comment on above: Order Comment: Abnor mal CBC with auto diff reflexes to a manual diff Performed By: #### C BCA ####[facility])[address] [place] [address] [place] [address] VIR WBC (Bld) [#/Vol] 6.6 10*3/uL Normal 4-11 [facility] Comment on above: Order Comment: Abnor mal CBC with auto diff reflexes to a manual diff Performed By: #### C BCA ####[facility] ([address] [place] [address] VIR CK TOTALon 03-12-2025 CPK 89 U/L Normal 24-170 [facility] Comment on above: Performed By: #### C PK ####[facility] ([address] [place] [address] VIR 36on 03-07-2025 36 Partial labs are in media with the CK and CBC still pending with no results at this time Normal [facility] 36on 02-26-2025 36 Opat received. Heather rmed orders for meds, labs ,Eots with Sonia at [facility]. Follow up appt scheduled. Normal [facility] 36 Call to Sonia at [facility] and confirmed antibiotic orders, weekly labs and EOTs. Follow up appt scheduled. Normal [facility] CBC AND AUTO DIFFon 02-25-20 25 ABSOLUTE BASOPHIL 0.0 X10E9/L Normal 0.0-0.2 [facility] Comment on above: Performed By: #### C BCA, [facility], [address]-3 #### [facility] ([id number]) [address], [address] [place] [address] ABSOLUTE NEUTROPHIL 3.4 X10E9/L Normal 1.5-6.6 [facility] Comment on above: Performed By: #### C RUBEN HENSON, #### [facility] ([id number]) [address], [address] [place] [address] Basophils/100 WBC (Bld) 0.6 % Normal [facility] Comment on above: Performed By: #### Renita HENSON CMP, #### [facility] ([id number]) [address], [address] [place] [address] Eosinophils (Bld) [#/Vol] 0.3 10*3/uL Normal 0.0-0.4 [facility] Comment on above: Performed By: #### Renita HENSON CMP, #### [facility] ([id number]) [address], [address] [place] [address] Eosinophils/100 WBC (Bld) 4.3 % Normal [facility] Comment on above: Performed By: #### Renita HENSON CMP, #### [facility] ([id number]) [address], [address] [place] [address] Erythrocyte distribution width (RBC) [Ratio] 18.2 % High 11.5-15.0 [facility] Comment on above: Performed By: #### Renita HENSON CMP, #### [facility] ([id number]) [address], [address] [place] [address] Hematocrit (Bld) [Volume fraction] 24.1 % Low 35-47 [facility] Comment on above: Performed By: #### Renita HENSON CMP, #### [facility] ([id number]) [address], [address] [place] [address] Hemoglobin (Bld) [Mass/Vol] 7.9 g/dL Low 11.7-15.5 [facility] Comment on above: Performed By: #### Renita HENOSN CMP, #### [facility] ([id number]) [address] [place] [address] Lymphocytes (Bld) [#/Vol] 2.0 10*3/uL Normal 1.0-3.5 [facility] Comment on above: Performed By: #### Renita HENSON CMP, #### [facility] ([id number]) [address], [facility] [address] [place] [address] Lymphocytes/100 WBC (Bld) 30.7 % Normal [facility] Comment on above: Performed By: #### Renita HENSON CMP, #### [facility] ([id number]) [address], [address] [place] [address] MCH (RBC) [Entitic mass] 27.7 pg Normal 27-34 [facility] Comment on above: Performed By: #### Renita HENSON CMP, #### [facility] ([id number]) [address], [address] [place] [address] MCHC (RBC) [Mass/Vol] 32.7 g/dL Normal 32-36 [facility] Comment on above: Performed By: #### Renita HENSON CMP, #### [facility] ([id number]) [address] [place] [address] MCV (RBC) [Entitic vol] 85 fL Normal 80-100 [facility] Comment on above: Performed By: #### Renita HENSON CMP, #### [facility] ([id number]) [address], [address] [place] [address] Monocytes (Bld) [#/Vol] 0.8 10*3/uL Normal 0-0.9 [facility] Comment on above: Performed By: #### C BCA, CMP, #### [facility] ([id number]) [address], [address] [place] [address] Monocytes/100 WBC (Bld) 12.3 % Normal [facility] Comment on above: Performed By: #### C BCA, CMP, #### [facility] ([id number]) [address] [place] [address] Neutrophils/100 WBC (Bld) 52.1 % Normal [facility] Comment on above: Performed By: #### C BCA, CMP, #### [facility] ([id number]) [address] [place] [address] Platelet mean volume (Bld) [Entitic vol] 7.9 fL Normal 7-12 [facility] Comment on above: Performed By: #### Renita BCA, CMP, #### [facility] ([id number]) [address] [place] [address] Platelets (Bld) [#/Vol] 334 10*3/uL Normal 150-450 [facility] Comment on above: Performed By: #### C BCA, CMP, #### [facility] ([id number]) [address] [place] [address] RBC COUNT 2.84 X10E12/L Low 3.80-5.20 [facility] Comment on above: Performed By: #### C BCA, CMP, #### [facility] ([id number]) [address], [address] [place] [address] WBC (Bld) [#/Vol] 6.6 10*3/uL Normal 4.0-11.0 [facility] Comment on above: Performed By: #### C BCA, CMP, #### [facility] ([id number]) [address], [address] [place] [address] CK [Catalytic activity/Vol]o n 02-24-2025 CPK 26 U/L Normal 24-170 [facility] Comment on above: Performed By: #### C BCA, CMP, 71073-0 #### [facility] ([id number]) [address], [address] [place] [address] COMPREHENSIVE METABOLIC PANE Dickson 02-24-2025 Albumin [Mass/Vol] 3.3 g/dL Normal 3.2-5.3 [facility] Comment on above: Performed By: #### C BCA, CMP, 28048-9 #### [facility] ([id number]) [address], [address] [place] [address] ALP [Catalytic activity/Vol] 90 U/L Normal 39-130 [facility] Comment on above: Performed By: #### C BCA, CMP, [id number] #### [facility] ([id number]) [address], [address] [place] [address] ALT [Catalytic activity/Vol] 18 U/L Normal 0-31 [facility] Comment on above: Performed By: #### C BCA, CMP, 52305-0 #### [facility] ([id number]) [address], [address] [place] [address] Anion gap [Moles/Vol] 6 mmol/L Normal 5-15 [facility] Comment on above: Performed By: #### C BCA, CMP, 82313-5 #### [facility] ([id number]) [address], [address] [place] [address] AST [Catalytic activity/Vol] 17 U/L Normal 0-41 [facility] Comment on above: Performed By: #### C BCA, CMP, 35337-5 #### [facility] ([id number]) [address], [address] [place] [address] Bilirubin [Mass/Vol] 0.3 mg/dL Normal 0.3-1.2 [facility] Comment on above: Performed By: #### C [place], [facility], [address]-5 #### [facility] ([id number]) [address], [address] [place] [address] Calcium [Mass/Vol] 8.5 mg/dL Normal 8.5-10.5 [facility] Comment on above: Performed By: #### C [place], [facility], #### [facility] ([id number]) [address], [address] [place] [address] Chloride [Moles/Vol] 105 mmol/L Normal 98-109 [facility] Comment on above: Performed By: #### Renita HENSON [facility], #### [facility] ([id number]) [address] [place] [address] CO2 [Moles/Vol] 28 mmol/L Normal 22-32 [facility] Comment on above: Performed By: #### C [facility], [facility], #### [facility] ([id number]) [address] [place] [address] Creatinine [Mass/Vol] 1.81 mg/dL High 0.40-1.00 [facility] Comment on above: Result Comment: METH OD TRACEABLE TO IDMS STANDARD Performed By: #### C [facility], [facility], #### [facility] ([id number]) [address] [address] [address] [place] [address] GFR/1.73 sq M.predicted among non-blacks MDRD (S/P/Bld) [Vol rate/Area] 28 mL/min/{1.73_m2} Low >59 [facility] Comment on above: Result Comment: Reported eGFR is based on the CKD-EPI 2020 equation that does not use a race coefficient. Performed By: #### C BCA, CMP, #### [facility] ([id number]) [address] [place] [address] Glucose [Mass/Vol] 113 mg/dL High 65-99 [facility] Comment on above: Performed By: #### C BCA, CMP, #### [facility] ([id number]) [address] [place] [address] Potassium [Moles/Vol] 4.8 mmol/L Normal 3.5-5.0 [facility] Comment on above: Performed By: #### C BCA, CMP, #### [facility] ([id number]) [address], [address] [place] [address] Protein [Mass/Vol] 6.5 g/dL Normal 6.0-8.0 [facility] Comment on above: Performed By: #### C BCA, CMP, 36876-9 #### [facility] ([id number]) [address] [place] [address] Sodium [Moles/Vol] 139 mmol/L Normal 134-146 [facility] Comment on above: Performed By: #### C BCA, CMP, 28580-3 #### [facility] ([id number]) [address] [place] [address] Urea nitrogen [Mass/Vol] 28 mg/dL High 5-27 [facility] Comment on above: Performed By: #### C BCA, CMP, 89585-2 #### [facility] ([id number]) [address] [place] [address] Glucose Glucometer (BldC) [M ass/Vol]on 02-24-2025 Glucose [Mass/Vol] 266 mg/dL High 65-99 [facility] Glucose [Mass/Vol] 127 mg/dL High 65-99 [facility] MAGNESIUMon 02-24-2025 Magnesium [Mass/Vol] 2.2 mg/dL Normal 1.8-2.6 [facility] Comment on above: Performed By: #### Renita HENSON CMP, #### [facility] ([id number]) [address] [place] [address] CBC AND AUTO DIFFon 02-24-20 25 Band form neutrophils/100 WBC (Bld) 1.1 % Normal [facility] Comment on above: Performed By: #### Renita HENSON CMP, #### [facility] ([id number]) [address] [place] [address] Eosinophils (Bld) [#/Vol] 0.3 10*3/uL Normal 0.0-0.4 [facility] Comment on above: Performed By: #### Renita HENSON CMP, #### [facility] ([id number]) [address] [place] [address] Eosinophils/100 WBC (Bld) 4.3 % Normal [facility] Comment on above: Performed By: #### Renita HENSON CMP, #### [facility] ([id number]) [address] [place] [address] Erythrocyte distribution width (RBC) [Ratio] 17.8 % High 11.5-15.0 [facility] Comment on above: Performed By: #### Renita HENSON CMP, #### [facility] ([id number]) [address] [place] [address] FRAGMENT 1+ Abnormal NONE [facility] Comment on above: Performed By: #### Renita HENSON CMP, #### [facility] ([id number]) [address] [place] [address] Hematocrit (Bld) [Volume fraction] 25.6 % Low 35-47 [facility] Comment on above: Performed By: #### C [place]IV[place], CMP, 35625-9 #### [facility] ([id number]) [address] [place] [address] Hemoglobin (Bld) [Mass/Vol] 8.4 g/dL Low 11.7-15.5 [facility] Comment on above: Performed By: #### C [place], CMP, #### [facility] ([id number]) [address] [place] [address] Lymphocytes (Bld) [#/Vol] 1.9 10*3/uL Normal 1.0-3.5 [facility] Comment on above: Performed By: #### C [place]IVID[place] CMP, #### [facility] ([id number]) [address] [place] [address] Lymphocytes/100 WBC (Bld) 30.1 % Normal [facility] Comment on above: Performed By: #### Renita HENSON, CMP, #### [facility] ([id number]) [address] [place] [address] MCH (RBC) [Entitic mass] 27.5 pg Normal 27-34 [facility] Comment on above: Performed By: #### Renita HENSON CMP, #### [facility] ([id number]) [address] [place] [address] MCHC (RBC) [Mass/Vol] 32.7 g/dL Normal 32-36 [facility] Comment on above: Performed By: #### Renita HENSON, CMP, #### [facility] ([id number]) [address] [place] [address] MCV (RBC) [Entitic vol] 84 fL Normal 80-100 [facility] Comment on above: Performed By: #### C NATIVIDAD CMP, #### [facility] ([id number]) [address] [place] [address] Metamyelocytes/10 0 WBC (Bld) 1.1 % Normal [facility] Comment on above: Performed By: #### C BCA, CMP, #### [facility] ([id number]) [address] [place] [address] Monocytes (Bld) [#/Vol] 0.8 10*3/uL Normal 0-0.9 [facility] Comment on above: Performed By: #### C BCA, CMP, #### [facility] ([id number]) [address] [place] [address] Monocytes/100 WBC (Bld) 12.9 % Normal [facility] Comment on above: Performed By: #### C BCA, CMP, #### [facility] ([id number]) [address] [place] [address] MYELOCYTE 1.1 % Normal [facility] Comment on above: Performed By: #### C BCA, CMP, #### [facility] ([id number]) [address] [place] [address] Neutrophils (Bld) [#/Vol] 3.3 10*3/uL Normal 1.5-6.6 [facility] Comment on above: Performed By: #### C BCA, CMP, #### [facility] ([id number]) [address] [place] [address] NUCLEATED RBC 2.2 /100 WBC High 0.0-1.0 [facility] Comment on above: Performed By: #### C BCA, CMP, #### [facility] ([id number]) [address] [place] [address] OVALOCYTE 1+ Abnormal NONE [facility] Comment on above: Performed By: #### Renita HENSON CMP, 15169-6 #### [facility] ([id number]) [address] [place] [address] Platelet mean volume (Bld) [Entitic vol] 8.0 fL Normal 7-12 [facility] Comment on above: Performed By: #### Renita HENSON CMP, #### [facility] ([id number]) [address] [place] [address] Platelets (Bld) [#/Vol] 353 10*3/uL Normal 150-450 [facility] Comment on above: Performed By: #### Renita HENSON CMP, #### [facility] ([id number]) [address] [place] [address] POLYCHROMASIA 1+ Abnormal NONE [facility] Comment on above: Performed By: #### Renita HENSON CMP, #### [facility] ([id number]) [address] [place] [address] RBC COUNT 3.04 X10E12/L Low 3.80-5.20 [facility] Comment on above: Performed By: #### Renita HESNON CMP, #### [facility] ([id number]) [address] [place] [address] SEG NEUTROPHIL 49.4 % Normal [facility] Comment on above: Performed By: #### Renita HENSON CMP, #### [facility] ([id number]) [address] [place] [address] WBC (Bld) [#/Vol] 6.4 10*3/uL Normal 4.0-11.0 [facility] Comment on above: Performed By: #### Renita HENSON CMP, #### [facility] ([id number]) [address] [place] [address] COMPREHENSIVE METABOLIC PANE Dickson 02-23-2025 Albumin [Mass/Vol] 3.2 g/dL Normal 3.2-5.3 [facility] Comment on above: Performed By: #### C BCA, CMP, #### [facility] ([id number]) [address] [place] [address] ALP [Catalytic activity/Vol] 103 U/L Normal 39-130 [facility] Comment on above: Performed By: #### C BCA, CMP, #### [facility] ([id number]) [address] [place] [address] ALT [Catalytic activity/Vol] 20 U/L Normal 0-31 [facility] Comment on above: Performed By: #### C BCA, CMP, #### [facility] ([id number]) [address] [place] [address] Anion gap [Moles/Vol] 8 mmol/L Normal 5-15 [facility] Comment on above: Performed By: #### C BCA, CMP, #### [facility] ([id number]) [address] [place] [address] AST [Catalytic activity/Vol] 22 U/L Normal 0-41 [facility] Comment on above: Performed By: #### C BCA, CMP, #### [facility] ([id number]) [address] [place] [address] Bilirubin [Mass/Vol] 0.3 mg/dL Normal 0.3-1.2 [facility] Comment on above: Performed By: #### C BCA, CMP, #### [facility] ([id number]) [address] [place] [address] Calcium [Mass/Vol] 8.8 mg/dL Normal 8.5-10.5 [facility] Comment on above: Performed By: #### C NATIV[place]AD [place], 42003-9 #### [facility] ([id number]) [address] [place] [address] Chloride [Moles/Vol] 104 mmol/L Normal 98-109 [facility] Comment on above: Performed By: #### C [place], #### [facility] ([id number]) [address] [place] [address] CO2 [Moles/Vol] 27 mmol/L Normal 22-32 [facility] Comment on above: Performed By: #### C RUBEN HENSON, #### [facility] ([id number]) [address] [place] [address] Creatinine [Mass/Vol] 1.86 mg/dL High 0.40-1.00 [facility] Comment on above: Result Comment: METH OD TRACEABLE TO IDMS STANDARD Performed By: #### C [place]IV[place]AD [place], #### [facility] ([id number]) [address] [place] [address] GFR/1.73 sq M.predicted among non-blacks MDRD (S/P/Bld) [Vol rate/Area] 27 mL/min/{1.73_m2} Low >59 [facility] Comment on above: Result Comment: Reported eGFR is based on the CKD-EPI 2020 equation that does not use a race coefficient. Performed By: #### C RUBEN HENSON, #### [facility] ([id number]) [address] [place] [address] Glucose [Mass/Vol] 158 mg/dL High 65-99 [facility] Comment on above: Performed By: #### C [place], CMP, #### [facility] ([id number]) [address] [place] [address] Potassium [Moles/Vol] 5.1 mmol/L High 3.5-5.0 [facility] Comment on above: Performed By: #### Renita HENSON, [place], #### [facility] ([id number]) [address] [place] [address] Protein [Mass/Vol] 6.6 g/dL Normal 6.0-8.0 [facility] Comment on above: Performed By: #### Renita HENSON, CMP, #### [facility] ([id number]) [address] [place] [address] Sodium [Moles/Vol] 139 mmol/L Normal 134-146 [facility] Comment on above: Performed By: #### Renita HENSON, [place], #### [facility] ([id number]) [address] [place] [address] Urea nitrogen [Mass/Vol] 24 mg/dL Normal 5-27 [facility] Comment on above: Performed By: #### Renita HENSON, [place], 697[address]-5 #### [facility] ([id number]) [address] [place] [address] Glucose Glucometer (BldC) [M ass/Vol]on 02-23-2025 Glucose [Mass/Vol] 265 mg/dL High 65-99 [facility] Glucose [Mass/Vol] 184 mg/dL High 65-99 [facility] Glucose [Mass/Vol] 200 mg/dL High 65-99 [facility] Glucose [Mass/Vol] 156 mg/dL High 65-99 [facility] Glucose [Mass/Vol] 170 mg/dL High 65-99 [facility] MAGNESIUMon 02-23-2025 Magnesium [Mass/Vol] 2.3 mg/dL Normal 1.8-2.6 [facility] Comment on above: Performed By: #### C RUBEN HENSON, 36230-7 #### [facility] ([id number]) [address] [place] [address] Natriuretic peptide B [Mass/ Vol]on 02-23-2025 Natriuretic peptide B (Bld) [Mass/Vol] 37 pg/mL Normal <100.0 [facility] Comment on above: Performed By: #### C RUBEN HENSON, 39689-9 #### [facility] ([id number]) [address] [place] [address] XR CHEST 1 VWon 02-23-2025 XR CHEST [...] Espinosa MD on 02/23/2025 3:40 PM Normal [facility] BLOOD CULTUREon 02-22-2025 Bacteria identified Aer cx Nom (Bld) SPECIMEN NOTES SUBOPTIMAL VOLUME OF BLOOD COLLECTED, RESULTS MAY BE AFFECTED. CULTURE RESULTS NO GROWTH 5 DAYS Normal [facility] Comment on above: Performed By: #### Renita HENSON CMP, 86798-8 #### [facility] ([id number]) [address] [place] [address] CBC AND AUTO DIFFon 02-23-20 25 ABSOLUTE BASOPHIL 0.1 X10E9/L Normal 0.0-0.2 [facility] Comment on above: Performed By: #### Renita HENSON CMP, #### [facility] ([id number]) [address] [place] [address] Band form neutrophils/100 WBC (Bld) 2.9 % Normal [facility] Comment on above: Performed By: #### Renita HENSON CMP, 89990-5 #### [facility] ([id number]) [address] [place] [address] Basophils/100 WBC (Bld) 1.9 % Normal [facility] Comment on above: Performed By: #### Renita HENSON CMP, #### [facility] ([id number]) [address] [place] [address] Eosinophils (Bld) [#/Vol] 0.2 10*3/uL Normal 0.0-0.4 [facility] Comment on above: Performed By: #### Renita HENSON CMP, #### [facility] ([id number]) [address] [place] [address] Eosinophils/100 WBC (Bld) 3.8 % Normal [facility] Comment on above: Performed By: #### Renita HENSON, [place], #### [facility] ([id number]) [address] [place] [address] Erythrocyte distribution width (RBC) [Ratio] 17.4 % High 11.5-15.0 [facility] Comment on above: Performed By: #### Renita HENSON CMP, #### [facility] ([id number]) [address] [place] [address] Hematocrit (Bld) [Volume fraction] 26.5 % Low 35-47 [facility] Comment on above: Performed By: #### Renita HENSON, CMP, #### [facility] ([id number]) [address] [place] [address] Hemoglobin (Bld) [Mass/Vol] 8.7 g/dL Low 11.7-15.5 [facility] Comment on above: Performed By: #### Renita HENSON CMP, #### [facility] ([id number]) [address] [place] [address] LYMPHOCYTE, ATYPICAL 1.0 % Normal [facility] Comment on above: Performed By: #### Renita HENSON CMP, #### [facility] ([id number]) [address] [place] [address] Lymphocytes (Bld) [#/Vol] 1.3 10*3/uL Normal 1.0-3.5 [facility] Comment on above: Performed By: #### Renita HENSON CMP, #### [facility] ([id number]) [address] [place] [address] Lymphocytes/100 WBC (Bld) 20.0 % Normal [facility] Comment on above: Performed By: #### Renita HENSON CMP, #### [facility] ([id number]) [address] [place] [address] MCH (RBC) [Entitic mass] 27.6 pg Normal 27-34 [facility] Comment on above: Performed By: #### Renita HENSON CMP, #### [facility] ([id number]) [address] [place] [address] MCHC (RBC) [Mass/Vol] 32.9 g/dL Normal 32-36 [facility] Comment on above: Performed By: #### Renita HENSON CMP, #### [facility] ([id number]) [address] [place] [address] MCV (RBC) [Entitic vol] 84 fL Normal 80-100 [facility] Comment on above: Performed By: #### C BCA, CMP, #### [facility] ([id number]) [address] [place] [address] Metamyelocytes/10 0 WBC (Bld) 1.0 % Normal [facility] Comment on above: Performed By: #### C BCA, CMP, #### [facility] ([id number]) [address] [place] [address] Monocytes (Bld) [#/Vol] 0.5 10*3/uL Normal 0-0.9 [facility] Comment on above: Performed By: #### C BCA, CMP, #### [facility] ([id number]) [address] [place] [address] Monocytes/100 WBC (Bld) 8.6 % Normal [facility] Comment on above: Performed By: #### Renita BCA, CMP, #### [facility] ([id number]) [address] [place] [address] MYELOCYTE 1.0 % Normal [facility] Comment on above: Performed By: #### Renita BCA, CMP, #### [facility] ([id number]) [address] [place] [address] Neutrophils (Bld) [#/Vol] 3.9 10*3/uL Normal 1.5-6.6 [facility] Comment on above: Performed By: #### C BCA, CMP, #### [facility] ([id number]) [address] [place] [address] OVALOCYTE 1+ Abnormal NONE [facility] Comment on above: Performed By: #### C BCA, CMP, #### [facility] ([id number]) [address] [place] [address] Platelet mean volume (Bld) [Entitic vol] 7.7 fL Normal 7-12 [facility] Comment on above: Performed By: #### Renita HENSON, CMP, #### [facility] ([id number]) [address] [place] [address] Platelets (Bld) [#/Vol] 367 10*3/uL Normal 150-450 [facility] Comment on above: Performed By: #### C [place], CMP, #### [facility] ([id number]) [address] [place] [address] POLYCHROMASIA 1+ Abnormal NONE [facility] Comment on above: Performed By: #### Renita HENSON CMP, #### [facility] ([id number]) [address] [place] [address] RBC COUNT 3.16 X10E12/L Low 3.80-5.20 [facility] Comment on above: Performed By: #### Renita HENSON, CMP, #### [facility] ([id number]) [address] [place] [address] SEG NEUTROPHIL 59.8 % Normal [facility] Comment on above: Performed By: #### Renita HENSON, CMP, #### [facility] ([id number]) [address] [place] [address] WBC (Bld) [#/Vol] 6.1 10*3/uL Normal 4.0-11.0 [facility] Comment on above: Performed By: #### Renita HENSON, CMP, #### [facility] ([id number]) [address] [place] [address] COMPREHENSIVE METABOLIC PANE Dickson 02-22-2025 Albumin [Mass/Vol] 3.4 g/dL Normal 3.2-5.3 [facility] Comment on above: Performed By: #### C BCA, CMP, #### [facility] ([id number]) [address] [place] [address] ALP [Catalytic activity/Vol] 105 U/L Normal 39-130 [facility] Comment on above: Performed By: #### C BCA, CMP, #### [facility] ([id number]) [address] [place] [address] ALT [Catalytic activity/Vol] 24 U/L Normal 0-31 [facility] Comment on above: Performed By: #### C BCA, CMP, #### [facility] ([id number]) [address] [place] [address] Anion gap [Moles/Vol] 7 mmol/L Normal 5-15 [facility] Comment on above: Performed By: #### C BCA, CMP, #### [facility] ([id number]) [address] [place] [address] AST [Catalytic activity/Vol] 25 U/L Normal 0-41 [facility] Comment on above: Performed By: #### C BCA, CMP, #### [facility] ([id number]) [address] [place] [address] Bilirubin [Mass/Vol] 0.3 mg/dL Normal 0.3-1.2 [facility] Comment on above: Performed By: #### C BCA, CMP, #### [facility] ([id number]) [address] [place] [address] Calcium [Mass/Vol] 9.3 mg/dL Normal 8.5-10.5 [facility] Comment on above: Performed By: #### C BCA, CMP, #### [facility] ([id number]) [address] [place] [address] Chloride [Moles/Vol] 101 mmol/L Normal 98-109 [facility] Comment on above: Performed By: #### C [place], 499[address]-7 #### [facility] ([id number]) [address] [place] [address] CO2 [Moles/Vol] 30 mmol/L Normal 22-32 [facility] Comment on above: Performed By: #### C [place], 24[address]-9 #### [facility] ([id number]) [address] [place] [address] Creatinine [Mass/Vol] 1.72 mg/dL High 0.40-1.00 [facility] Comment on above: Result Comment: METH OD TRACEABLE TO IDMS STANDARD Performed By: #### C [place] [facility], #### [facility] ([id number]) [address] [place] [address] GFR/1.73 sq M.predicted among non-blacks MDRD (S/P/Bld) [Vol rate/Area] 30 mL/min/{1.73_m2} Low >59 [facility] Comment on above: Result Comment: Reported eGFR is based on the CKD-EPI 2020 equation that does not use a race coefficient. Performed By: #### C [place], #### [facility] ([id number]) [address] [place] [address] Glucose [Mass/Vol] 67 mg/dL Normal 65-99 [facility] Comment on above: Performed By: #### C [place], 23247-6 #### [facility] ([id number]) [address] [place] [address] Potassium [Moles/Vol] 4.6 mmol/L Normal 3.5-5.0 [facility] Comment on above: Performed By: #### Renita HENSON CMP, [id number] #### [facility] ([id number]) [address], [address] [place] [address] Protein [Mass/Vol] 7.0 g/dL Normal 6.0-8.0 [facility] Comment on above: Performed By: #### Renita HENSON CMP, #### [facility] ([id number]) [address] [place] [address] Sodium [Moles/Vol] 138 mmol/L Normal 134-146 [facility] Comment on above: Performed By: #### Renita HENSON CMP, #### [facility] ([id number]) [address] [place] [address] Urea nitrogen [Mass/Vol] 19 mg/dL Normal 5-27 [facility] Comment on above: Performed By: #### Renita HENSON CMP, #### [facility] ([id number]) [address] [place] [address] Glucose Glucometer (dC) [M ass/Vol]on 02-22-2025 Glucose [Mass/Vol] 171 mg/dL High 65-99 [facility] Glucose [Mass/Vol] 209 mg/dL High 65-99 [facility] Glucose [Mass/Vol] 149 mg/dL High 65-99 [facility] Glucose [Mass/Vol] 79 mg/dL Normal 65-99 [facility] MAGNESIUMon 02-22-2025 Magnesium [Mass/Vol] 2.5 mg/dL Normal 1.8-2.6 [facility] Comment on above: Performed By: #### Renita HENSON CMP, #### [facility] ([id number]) [address] [place] [address] BLOOD CULTUREon 02-21-2025 Bacteria identified Aer cx Nom (Bld) SPECIMEN NOTES SUBOPTIMAL VOLUME OF BLOOD COLLECTED, RESULTS MAY BE AFFECTED. CULTURE RESULTS NO GROWTH 5 DAYS Normal [facility] Comment on above: Performed By: #### C [facility], #### [facility] ([id number]) [address] [place] [address] CBC AND AUTO DIFFon 02-22-20 25 Band form neutrophils/100 WBC (Bld) 1.0 % Normal [facility] Comment on above: Performed By: #### C MP, , CBCA ####[facility] ([id number])[address] [address] Eosinophils (Bld) [#/Vol] 0.2 10*3/uL Normal 0.0-0.4 [facility] Comment on above: Performed By: #### C MP, , CBCA ####[facility] ([id number])0 [address] [address] [place] [address] Eosinophils/100 WBC (Bld) 3.0 % Normal [facility] Comment on above: Performed By: #### C MP, , CBCA ####[facility] ([id number])[address] [address] Erythrocyte distribution width (RBC) [Ratio] 16.8 % High 11.5-15.0 [facility] Comment on above: Performed By: #### C MP, , CBCA ####[facility] ([id number])[address] [address] Hematocrit (Bld) [Volume fraction] 25.6 % Low 35-47 [facility] Comment on above: Performed By: #### C MP, , CBCA ####[facility] ([id number])[address] [address] Hemoglobin (Bld) [Mass/Vol] 8.5 g/dL Low 11.7-15.5 [facility] Comment on above: Performed By: #### Renita CUEVAS, , CBCA ####[facility] ([id number])[address], [address], [place] [address] HYPOCHROMIA 1+ Abnormal NONE [facility] Comment on above: Performed By: #### Renita CUEVAS, , CBCA ####[facility] ([id number])[address], [address] [place] [address] Lymphocytes (Bld) [#/Vol] 1.0 10*3/uL Normal 1.0-3.5 [facility] Comment on above: Performed By: #### Renita CUEVAS, , CBCA ####[facility] ([id number])[address], [address] [address] Lymphocytes/100 WBC (Bld) 15.0 % Normal [facility] Comment on above: Performed By: #### Renita CUEVAS, , CBCA ####[facility] ([id number])[address], [address] [place] [address] MCH (RBC) [Entitic mass] 27.4 pg Normal 27-34 [facility] Comment on above: Performed By: #### Renita CUEVAS, , CBCA ####[facility] ([id number])[address], [address] [address] MCHC (RBC) [Mass/Vol] 33.2 g/dL Normal 32-36 [facility] Comment on above: Performed By: #### Renita CUEVAS, , CBCA ####[facility] ([id number])[address], [address] [place] [address] MCV (RBC) [Entitic vol] 83 fL Normal 80-100 [facility] Comment on above: Performed By: #### C FAITH, , CBCA ####[facility] ([id number])[address], [address] [address] Metamyelocytes/10 0 WBC (Bld) 2.0 % Normal [facility] Comment on above: Performed By: #### C FAITH, , CBCA ####[facility] ([id number])[address], [address] [address] Monocytes (Bld) [#/Vol] 0.7 10*3/uL Normal 0-0.9 [facility] Comment on above: Performed By: #### C FAITH, , CBCA ####[facility] ([id number])[address], [address] [address] Monocytes/100 WBC (Bld) 11.0 % Normal [facility] Comment on above: Performed By: #### C FAITH, , CBCA ####[facility] ([id number])[address], [address] [place] [address], [place] [address] MYELOCYTE 4.0 % Normal [facility] Comment on above: Performed By: #### C FAITH, , CBCA ####[facility] ([id number])[address] [address] [place] [address] Neutrophils (Bld) [#/Vol] 4.4 10*3/uL Normal 1.5-6.6 [facility] Comment on above: Performed By: #### C FAITH, , CBCA ####[facility] ([id number])[address], [address] [address] Platelet mean volume (Bld) [Entitic vol] 8.2 fL Normal 7-12 [facility] Comment on above: Performed By: #### C FAITH, , CBCA ####[facility] ([id number])[address], [address] [place] [address] Platelets (Bld) [#/Vol] 343 10*3/uL Normal 150-450 [facility] Comment on above: Performed By: #### C FAITH, , CBCA ####[facility] ([id number])[address], [address] [place] [address] POLYCHROMASIA 1+ Abnormal NONE [facility] Comment on above: Performed By: #### C FAITH, , CBCA ####[facility] ([id number])[address], [address] [address] RBC COUNT 3.10 X10E12/L Low 3.80-5.20 [facility] Comment on above: Performed By: #### C FAITH, , CBCA ####[facility] ([id number])[address], [address] [place] [address] SEG NEUTROPHIL 64.0 % Normal [facility] Comment on above: Performed By: #### Renita CUEVAS, , CBCA ####[facility] ([id number])[address] [address] WBC (Bld) [#/Vol] 6.7 10*3/uL Normal 4.0-11.0 [facility] Comment on above: Performed By: #### C FAITH, , CBCA ####[facility] ([id number])[address], [address] [place] [address] COMPREHENSIVE METABOLIC PANE Dickson 02-21-2025 Albumin [Mass/Vol] 3.4 g/dL Normal 3.2-5.3 [facility] Comment on above: Performed By: #### C FAITH, , CBCA ####[facility] ([id number])[address], [address], [place] [address] ALP [Catalytic activity/Vol] 112 U/L Normal 39-130 [facility] Comment on above: Performed By: #### C FAITH, , CBCA ####[facility] ([id number])[address], [address], [place] [address] ALT [Catalytic activity/Vol] 22 U/L Normal 0-31 [facility] Comment on above: Performed By: #### C FAITH, , CBCA ####[facility] ([id number])[address], [address], [place] [address] Anion gap [Moles/Vol] 10 mmol/L Normal 5-15 [facility] Comment on above: Performed By: #### C FAITH, , CBCA ####[facility] ([id number])[address], [address], [place] [address] AST [Catalytic activity/Vol] 26 U/L Normal 0-41 [facility] Comment on above: Performed By: #### Renita CUEVAS, , CBCA ####[facility] ([id number])[address], [address], [place] [address] Bilirubin [Mass/Vol] 0.3 mg/dL Normal 0.3-1.2 [facility] Comment on above: Performed By: #### C FAITH, , CBCA ####[facility] ([id number])[address], [address], [place] [address] Calcium [Mass/Vol] 9.2 mg/dL Normal 8.5-10.5 [facility] Comment on above: Performed By: #### Renita CUEVAS, , CBCA ####[facility] ([id number])[address], [address], [place] [address] Chloride [Moles/Vol] 101 mmol/L Normal 98-109 [facility] Comment on above: Performed By: #### C FAITH, , CBCA ####[facility] ([id number])[address], [address] [address] CO2 [Moles/Vol] 28 mmol/L Normal 22-32 [facility] Comment on above: Performed By: #### Renita CUEVAS, , CBCA ####[facility] ([id number])[address], [address] [place] [address] Creatinine [Mass/Vol] 1.50 mg/dL High 0.40-1.00 [facility] Comment on above: Result Comment: METH OD TRACEABLE TO IDMS STANDARD Performed By: #### C FAITH, , CBCA ####[facility] ([id number])[address], [address] [address] GFR/1.73 sq M.predicted among non-blacks MDRD (S/P/Bld) [Vol rate/Area] 35 mL/min/{1.73_m2} Low >59 [facility] Comment on above: Result Comment: Reported eGFR is based on the CKD-EPI 2020 equation that does not use a race coefficient. Performed By: #### C FAITH, , CBCA ####[facility] ([id number])[address] [address] [place] [address] Glucose [Mass/Vol] 108 mg/dL High 65-99 [facility] Comment on above: Performed By: #### C FAITH, , CBCA ####[facility] ([id number])[address] [address] Potassium [Moles/Vol] 4.5 mmol/L Normal 3.5-5.0 [facility] Comment on above: Performed By: #### Renita CUEVAS, , CBCA ####[facility] ([id number])[address], [address] [place] [address] Protein [Mass/Vol] 6.6 g/dL Normal 6.0-8.0 [facility] Comment on above: Performed By: #### C AFITH, , CBCA ####[facility] ([id number])[address], [address] [place] [address] Sodium [Moles/Vol] 139 mmol/L Normal 134-146 [facility] Comment on above: Performed By: #### C FAITH, , CBCA ####[facility] ([id number])[address], [address] [place] [address] Urea nitrogen [Mass/Vol] 15 mg/dL Normal 5-27 [facility] Comment on above: Performed By: #### C FAITH, , CBCA ####[facility] ([id number])[address], [address] [place] [address] Glucose Glucometer (BldC) [M ass/Vol]on 02-21-2025 Glucose [Mass/Vol] 186 mg/dL High 65-99 [facility] Glucose [Mass/Vol] 189 mg/dL High 65-99 [facility] Glucose [Mass/Vol] 165 mg/dL High 65-99 [facility] Glucose [Mass/Vol] 123 mg/dL High 65-99 [facility] MAGNESIUMon 02-21-2025 Magnesium [Mass/Vol] 2.6 mg/dL Normal 1.8-2.6 [facility] Comment on above: Performed By: #### 1 9123-9 ####[facility] ([id number])[address], [address] [place] [address] Magnesium [Mass/Vol] 1.8 mg/dL Normal 1.8-2.6 [facility] Comment on above: Performed By: #### C FAITH, , CBCA ####[facility] ([id number])[address] [address] [place] [address] CBC AND AUTO DIFFon 02-21-20 25 Band form neutrophils/100 WBC (Bld) 1.0 % Normal [facility] Comment on above: Performed By: #### Renita BCA, CMP, , 2157-04 ####[facility] ([id number])[address] [address] Eosinophils (Bld) [#/Vol] 0.3 10*3/uL Normal 0.0-0.4 [facility] Comment on above: Performed By: #### Renita BCA, CMP, , 2157-04 ####[facility] ([id number])[address] [address] Eosinophils/100 WBC (Bld) 4.0 % Normal [facility] Comment on above: Performed By: #### Renita BCA, CMP, , 2157-04 ####[facility] ([id number])[address] [address] Erythrocyte distribution width (RBC) [Ratio] 17.2 % High 11.5-15.0 [facility] Comment on above: Performed By: #### Renita BCA, CMP, , 2157-04 ####[facility] ([id number])[address] [address] FRAGMENT 1+ Abnormal NONE [facility] Comment on above: Performed By: #### Renita BCA, CMP, , 2157-04 ####[facility] ([id number])[address] [address] Hematocrit (Bld) [Volume fraction] 23.6 % Low 35-47 [facility] Comment on above: Performed By: #### Renita BCA, CMP, , 2157-04 ####[facility] ([id number])[address], [address] [address] Hemoglobin (Bld) [Mass/Vol] 7.9 g/dL Low 11.7-15.5 [facility] Comment on above: Performed By: #### C BCA, CMP, , 2157-04 ####[facility] ([id number])[address], [address] [address] HYPOCHROMIA 1+ Abnormal NONE [facility] Comment on above: Performed By: #### C BCA, CMP, , 2157-04 ####[facility] ([id number])[address] [address] [place] [address] Lymphocytes (Bld) [#/Vol] 1.8 10*3/uL Normal 1.0-3.5 [facility] Comment on above: Performed By: #### C BCA, CMP, , 2157-04 ####[facility] ([id number])[address] [address] [place] [address] Lymphocytes/100 WBC (Bld) 23.2 % Normal [facility] Comment on above: Performed By: #### C BCA, CMP, 2157-04 ####[facility] ([id number])[address] [address] [place] [address] MCH (RBC) [Entitic mass] 27.7 pg Normal 27-34 [facility] Comment on above: Performed By: #### C BCA, CMP, , 2157-04 ####[facility] ([id number])[address] [address] [place] [address], [place] [address] MCHC (RBC) [Mass/Vol] 33.2 g/dL Normal 32-36 [facility] Comment on above: Performed By: #### C BCA, CMP, , 2157-04 ####[facility] ([id number])[address], [address] [address] MCV (RBC) [Entitic vol] 83 fL Normal 80-100 [facility] Comment on above: Performed By: #### C BCA, CMP, , 2157-04 ####[facility] ([id number])[address], [address] [address] Metamyelocytes/10 0 WBC (Bld) 1.0 % Normal [facility] Comment on above: Performed By: #### C BCA, CMP, , 2157-04 ####[facility] ([id number])[address], [address] [address] Monocytes (Bld) [#/Vol] 0.9 10*3/uL Normal 0-0.9 [facility] Comment on above: Performed By: #### C BCA, CMP, , 2157-04 ####[facility] ([id number])[address], [address] [place] [address] Monocytes/100 WBC (Bld) 12.1 % Normal [facility] Comment on above: Performed By: #### C BCA, CMP, 2157-04 ####[facility] ([id number])[address], [address] [place] [address] MYELOCYTE 3.0 % Normal [facility] Comment on above: Performed By: #### C BCA, CMP, , 2157-04 ####[facility] ([id number])[address], [address] [place] [address] Neutrophils (Bld) [#/Vol] 4.4 10*3/uL Normal 1.5-6.6 [facility] Comment on above: Performed By: #### C BCA, CMP, , 2157-04 ####[facility] ([id number])[address] [address] [address] Platelet mean volume (Bld) [Entitic vol] 8.4 fL Normal 7-12 [facility] Comment on above: Performed By: #### C BCA, CMP, , 2157-04 ####[facility] ([id number])[address] [address] [place] [address] Platelets (Bld) [#/Vol] 320 10*3/uL Normal 150-450 [facility] Comment on above: Performed By: #### Renita BCA, CMP, , 2157-04 ####[facility] ([id number])[address] [address] [address] RBC COUNT 2.83 X10E12/L Low 3.80-5.20 [facility] Comment on above: Performed By: #### Renita BCA, CMP, , 2157-04 ####[facility] ([id number])[address] [address] SEG NEUTROPHIL 55.7 % Normal [facility] Comment on above: Performed By: #### Renita BCA, CMP, , 2157-04 ####[facility] ([id number])[address] [address] WBC (Bld) [#/Vol] 7.8 10*3/uL Normal 4.0-11.0 [facility] Comment on above: Performed By: #### Renita BCA, CMP, , 2157-04 ####[facility] ([id number])[address] [address] [place] [address] CK [Catalytic activity/Vol]o n 02-20-2025 CPK 39 U/L Normal 24-170 [facility] Comment on above: Performed By: #### Renita BCA, CMP, , 2157-04 ####[facility] ([id number])[address], [place] [address] COMPREHENSIVE METABOLIC PANE Dickson 02-20-2025 Albumin [Mass/Vol] 3.2 g/dL Normal 3.2-5.3 [facility] Comment on above: Performed By: #### C BCA, CMP, , 2157-04 ####[facility] ([id number])[address], [address], [place] [address] ALP [Catalytic activity/Vol] 106 U/L Normal 39-130 [facility] Comment on above: Performed By: #### C BCA, CMP, , 2157-04 ####[facility] ([id number])[address], [address], [place] [address] ALT [Catalytic activity/Vol] 22 U/L Normal 0-31 [facility] Comment on above: Performed By: #### C BCA, CMP, , 2157-04 ####[facility] ([id number])[address], [address], [place] [address] Anion gap [Moles/Vol] 9 mmol/L Normal 5-15 [facility] Comment on above: Performed By: #### C BCA, CMP, , 2157-04 ####[facility] ([id number])[address], [address], [place] [address] AST [Catalytic activity/Vol] 24 U/L Normal 0-41 [facility] Comment on above: Performed By: #### C BCA, CMP, , 2157-04 ####[facility] ([id number])[address], [address], [place] [address] Bilirubin [Mass/Vol] 0.3 mg/dL Normal 0.3-1.2 [facility] Comment on above: Performed By: #### C BCA, CMP, , 2157-04 ####[facility] ([id number])[address] [address] [address] Calcium [Mass/Vol] 9.0 mg/dL Normal 8.5-10.5 [facility] Comment on above: Performed By: #### C BCA, CMP, , 2157-04 ####[facility] ([id number])[address] [address] Chloride [Moles/Vol] 101 mmol/L Normal 98-109 [facility] Comment on above: Performed By: #### C BCA, CMP, , 2157-04 ####[facility] ([id number])[address] [address], [place] [address] CO2 [Moles/Vol] 29 mmol/L Normal 22-32 [facility] Comment on above: Performed By: #### C BCA, CMP, , 2157-04 ####[facility] ([id number])[address] [address] [address] Creatinine [Mass/Vol] 1.45 mg/dL High 0.40-1.00 [facility] Comment on above: Result Comment: METH OD TRACEABLE TO IDMS STANDARD Performed By: #### C BCA, CMP, , 2157-04 ####[facility] ([id number])[address] [address], [place] [address] GFR/1.73 sq M.predicted among non-blacks MDRD (S/P/Bld) [Vol rate/Area] 37 mL/min/{1.73_m2} Low >59 [facility] Comment on above: Result Comment: Reported eGFR is based on the CKD-EPI 2020 equation that does not use a race coefficient. Performed By: #### C BCA, CMP, 92709-62[address]-04 ####[facility] ([id number])[address], [place] [address] Glucose [Mass/Vol] 110 mg/dL High 65-99 [facility] Comment on above: Performed By: #### C BCA, CMP, , 2157-04 ####[facility] ([id number])[address], [address], [place] [address] Potassium [Moles/Vol] 4.6 mmol/L Normal 3.5-5.0 [facility] Comment on above: Performed By: #### C BCA, CMP, , 2157-04 ####[facility] ([id number])[address], [address], [place] [address] Protein [Mass/Vol] 6.4 g/dL Normal 6.0-8.0 [facility] Comment on above: Performed By: #### C BCA, CMP, , 2157-04 ####[facility] ([id number])[address], [address], [place] [address] Sodium [Moles/Vol] 139 mmol/L Normal 134-146 [facility] Comment on above: Performed By: #### C BCA, CMP, 2157-04 ####[facility] ([id number])[address], [address], [place] [address] Urea nitrogen [Mass/Vol] 14 mg/dL Normal 5-27 [facility] Comment on above: Performed By: #### C BCA, CMP, , 2157-04 ####[facility] ([id number])[address], [address], [place] [address] Glucose Glucometer (BldC) [M ass/Vol]on 02-20-2025 Glucose [Mass/Vol] 253 mg/dL High 65-99 [facility] Glucose [Mass/Vol] 145 mg/dL High 65-99 [facility] Glucose [Mass/Vol] 237 mg/dL High 65-99 [facility] Glucose [Mass/Vol] 143 mg/dL High 65-99 [facility] MAGNESIUMon 02-20-2025 Magnesium [Mass/Vol] 1.9 mg/dL Normal 1.8-2.6 [facility] Comment on above: Performed By: #### C BCA, CMP, 28047-6, 7-6 ####[facility] ([id number])[address], [address] [place] [address] BLOOD CULTUREon 02-19-2025 Bacteria identified Aer cx Nom (Bld) SPECIMEN NOTES SUBOPTIMAL VOLUME OF BLOOD COLLECTED, RESULTS MAY BE AFFECTED. CULTURE RESULTS STAPHYLOCOCCUS AUREUS METHICILLIN RESISTANT FOR SUSCEPTIBILITY, SEE PREVIOUS REPORT. Normal [facility] Comment on above: Performed By: #### 1 7928-3 ####[facility] ([id number])[address], [address] [place] [address] Bacteria identified Aer cx Nom (Bld) SPECIMEN NOTES SUBOPTIMAL VOLUME OF BLOOD COLLECTED, RESULTS MAY BE AFFECTED. CULTURE RESULTS STAPHYLOCOCCUS AUREUS METHICILLIN RESISTANT FOR SUSCEPTIBILITY, SEE PREVIOUS REPORT. Normal [facility] Comment on above: Performed By: #### 1 7928-3 ####[facility] ([id number])[address] [address] CBC AND AUTO DIFFon 02-20-20 25 Eosinophils (Bld) [#/Vol] 0.1 10*3/uL Normal 0.0-0.4 [facility] Comment on above: Performed By: #### 2 0578-1 #### [facility] ([id number]) [address] [address] Eosinophils/100 WBC (Bld) 1.0 % Normal [facility] Comment on above: Performed By: #### 2 0578-1 #### [facility] ([id number]) [address], [address] [place] [address] Erythrocyte distribution width (RBC) [Ratio] 17.1 % High 11.5-15.0 [facility] Comment on above: Performed By: #### 2 0578-1 #### [facility] ([id number]) [address], [address] [place] [address] Hematocrit (Bld) [Volume fraction] 24.1 % Low 35-47 [facility] Comment on above: Performed By: #### 2 0578-1 #### [facility] ([id number]) [address], [address] [place] [address] Hemoglobin (Bld) [Mass/Vol] 7.9 g/dL Low 11.7-15.5 [facility] Comment on above: Performed By: #### 2 0578-1 #### [facility] ([id number]) [address] [place] [address] Lymphocytes (Bld) [#/Vol] 1.8 10*3/uL Normal 1.0-3.5 [facility] Comment on above: Performed By: #### 2 0578-1 #### [facility] ([id number]) [address], [address] [place] [address] Lymphocytes/100 WBC (Bld) 21.0 % Normal [facility] Comment on above: Performed By: #### 2 0578-1 #### [facility] ([id number]) [address], [address] [place] [address] MCH (RBC) [Entitic mass] 27.3 pg Normal 27-34 [facility] Comment on above: Performed By: #### 2 0578-1 #### [facility] ([id number]) [address], [address] [place] [address] MCHC (RBC) [Mass/Vol] 32.7 g/dL Normal 32-36 [facility] Comment on above: Performed By: #### 2 0578-1 #### [facility] ([id number]) [address], [address] [place] [address] MCV (RBC) [Entitic vol] 84 fL Normal 80-100 [facility] Comment on above: Performed By: #### 2 0578-1 #### [facility] ([id number]) [address], [address] [place] [address] Monocytes (Bld) [#/Vol] 0.6 10*3/uL Normal 0-0.9 [facility] Comment on above: Performed By: #### 2 0578-1 #### [facility] ([id number]) [address] [place] [address] Monocytes/100 WBC (Bld) 7.0 % Normal [facility] Comment on above: Performed By: #### 2 0578-1 #### [facility] ([id number]) [address] [place] [address] MYELOCYTE 2.0 % Normal [facility] Comment on above: Performed By: #### 2 0578-1 #### [facility] ([id number]) [address] [place] [address] Neutrophils (Bld) [#/Vol] 6.1 10*3/uL Normal 1.5-6.6 [facility] Comment on above: Performed By: #### 2 0578-1 #### [facility] ([id number]) [address], [address] [place] [address] OVALOCYTE 1+ Abnormal NONE [facility] Comment on above: Performed By: #### 2 0578-1 #### [facility] ([id number]) [address], [address] [place] [address] Platelet mean volume (Bld) [Entitic vol] 8.3 fL Normal 7-12 [facility] Comment on above: Performed By: #### 2 0578-1 #### [facility] ([id number]) [address], [address] [place] [address] Platelets (Bld) [#/Vol] 288 10*3/uL Normal 150-450 [facility] Comment on above: Performed By: #### 2 0578-1 #### [facility] ([id number]) [address] [place] [address] POLYCHROMASIA 1+ Abnormal NONE [facility] Comment on above: Performed By: #### 2 0578-1 #### [facility] ([id number]) [address] [place] [address] RBC COUNT 2.89 X10E12/L Low 3.80-5.20 [facility] Comment on above: Performed By: #### 2 0578-1 #### [facility] ([id number]) [address] [place] [address] SEG NEUTROPHIL 69.0 % Normal [facility] Comment on above: Performed By: #### 2 0578-1 #### [facility] ([id number]) [address] [place] [address] WBC (Bld) [#/Vol] 8.8 10*3/uL Normal 4.0-11.0 [facility] Comment on above: Performed By: #### 2 0578-1 #### [facility] ([id number]) [address], [address] [place] [address] COMPREHENSIVE METABOLIC PANE Dickson 02-19-2025 Albumin [Mass/Vol] 3.2 g/dL Normal 3.2-5.3 [facility] Comment on above: Performed By: #### 2 0578-1 #### [facility] ([id number]) [address], [address] [place] [address] ALP [Catalytic activity/Vol] 112 U/L Normal 39-130 [facility] Comment on above: Performed By: #### 2 0578-1 #### [facility] ([id number]) [address] [place] [address] ALT [Catalytic activity/Vol] 23 U/L Normal 0-31 [facility] Comment on above: Performed By: #### 2 0578-1 #### [facility] ([id number]) [address], [address] [place] [address] Anion gap [Moles/Vol] 8 mmol/L Normal 5-15 [facility] Comment on above: Performed By: #### 2 0578-1 #### [facility] ([id number]) [address], [address] [place] [address] AST [Catalytic activity/Vol] 20 U/L Normal 0-41 [facility] Comment on above: Performed By: #### 2 0578-1 #### [facility] ([id number]) [address] [place] [address] Bilirubin [Mass/Vol] 0.3 mg/dL Normal 0.3-1.2 [facility] Comment on above: Performed By: #### 2 0578-1 #### [facility] ([id number]) [address] [place] [address] Calcium [Mass/Vol] 9.3 mg/dL Normal 8.5-10.5 [facility] Comment on above: Performed By: #### 2 0578-1 #### [facility] ([id number]) [address], [address] [place] [address] Chloride [Moles/Vol] 103 mmol/L Normal 98-109 [facility] Comment on above: Performed By: #### 2 0578-1 #### [facility] ([id number]) [address] [place] [address] CO2 [Moles/Vol] 30 mmol/L Normal 22-32 [facility] Comment on above: Performed By: #### 2 0578-1 #### [facility] ([id number]) [address], [address] [place] [address] Creatinine [Mass/Vol] 1.30 mg/dL High 0.40-1.00 [facility] Comment on above: Result Comment: METH OD TRACEABLE TO IDMS STANDARD Performed By: #### 2 0578-1 #### [facility] ([id number]) [address] [place] [address] GFR/1.73 sq M.predicted among non-blacks MDRD (S/P/Bld) [Vol rate/Area] 42 mL/min/{1.73_m2} Low >59 [facility] Comment on above: Result Comment: Reported eGFR is based on the CKD-EPI 2020 equation that does not use a race coefficient. Performed By: #### 2 0578-1 #### [facility] ([id number]) [address] [place] [address] Glucose [Mass/Vol] 95 mg/dL Normal 65-99 [facility] Comment on above: Performed By: #### 2 0578-1 #### [facility] ([id number]) [address] [place] [address] Potassium [Moles/Vol] 4.3 mmol/L Normal 3.5-5.0 [facility] Comment on above: Performed By: #### 2 0578-1 #### [facility] ([id number]) [address], [address] [place] [address] Protein [Mass/Vol] 6.2 g/dL Normal 6.0-8.0 [facility] Comment on above: Performed By: #### 2 0578-1 #### [facility] ([id number]) [address], [address] [place] [address] Sodium [Moles/Vol] 141 mmol/L Normal 134-146 [facility] Comment on above: Performed By: #### 2 0578-1 #### [facility] ([id number]) [address], [address] [place] [address] Urea nitrogen [Mass/Vol] 13 mg/dL Normal 5-27 [facility] Comment on above: Performed By: #### 2 0578-1 #### [facility] ([id number]) [address] [place] [address] Glucose Glucometer (BldC) [M ass/Vol]on 02-19-2025 Glucose [Mass/Vol] 202 mg/dL High 65-99 [facility] Glucose [Mass/Vol] 171 mg/dL High 65-99 [facility] Glucose [Mass/Vol] 200 mg/dL High 65-99 [facility] Glucose [Mass/Vol] 100 mg/dL High 65-99 [facility] MAGNESIUMon 02-19-2025 Magnesium [Mass/Vol] 2.1 mg/dL Normal 1.8-2.6 [facility] Comment on above: Performed By: #### 2 0578-1 #### [facility] ([id number]) [address], [address] [place] [address] Vancomycin peak [Mass/Vol]on 02-19-2025 VANCOMYCIN PEAK 36.7 ug/mL Normal 30.00-40.0 0 [facility] Comment on above: Performed By: #### 4 090-7 ####[facility] ([id number])[address] [address] Vancomycin trough [Mass/Vol] on 02-19-2025 VANCOMYCIN TROUGH 22.2 ug/mL High 5.0-20.0 [facility] Comment on above: Performed By: #### 2 0578-1 #### [facility] ([id number]) [address], [address] [place] [address] CBC AND AUTO DIFFon 02-19-20 25 ACANTHOCYTE 1+ Abnormal NONE [facility] Comment on above: Performed By: #### Renita HENSON, CMP, 28328-3 #### [facility] ([id number]) [address], [address] [place] [address] Eosinophils (Bld) [#/Vol] 0.2 10*3/uL Normal 0.0-0.4 [facility] Comment on above: Performed By: #### Renita HENSON CMP, #### [facility] ([id number]) [address], [address] [place] [address] Eosinophils/100 WBC (Bld) 3.0 % Normal [facility] Comment on above: Performed By: #### Renita HENSON, CMP, #### [facility] ([id number]) [address], [address] [place] [address] Erythrocyte distribution width (RBC) [Ratio] 16.7 % High 11.5-15.0 [facility] Comment on above: Performed By: #### Renita HENSON CMP, #### [facility] ([id number]) [address], [address] [place] [address] Hematocrit (Bld) [Volume fraction] 22.6 % Low 35-47 [facility] Comment on above: Performed By: #### Renita HENSON, CMP, #### [facility] ([id number]) [address], [facility] [address] [place] [address] Hemoglobin (Bld) [Mass/Vol] 7.4 g/dL Low 11.7-15.5 [facility] Comment on above: Performed By: #### Renita HENSON, CMP, #### [facility] ([id number]) [address] [place] [address] Lymphocytes (Bld) [#/Vol] 1.8 10*3/uL Normal 1.0-3.5 [facility] Comment on above: Performed By: #### Renita HENSON CMP, #### [facility] ([id number]) [address] [place] [address] Lymphocytes/100 WBC (Bld) 24.2 % Normal [facility] Comment on above: Performed By: #### Renita HENSON, CMP, #### [facility] ([id number]) [address] [place] [address] MCH (RBC) [Entitic mass] 27.6 pg Normal 27-34 [facility] Comment on above: Performed By: #### Renita HENSON, CMP, #### [facility] ([id number]) [address] [place] [address] MCHC (RBC) [Mass/Vol] 33.0 g/dL Normal 32-36 [facility] Comment on above: Performed By: #### Renita HENSON, CMP, #### [facility] ([id number]) [address] [place] [address] MCV (RBC) [Entitic vol] 84 fL Normal 80-100 [facility] Comment on above: Performed By: #### Renita BCA, CMP, #### [facility] ([id number]) [address] [place] [address] Monocytes (Bld) [#/Vol] 0.9 10*3/uL Normal 0-0.9 [facility] Comment on above: Performed By: #### Renita BCA, CMP, #### [facility] ([id number]) [address] [place] [address] Monocytes/100 WBC (Bld) 12.1 % Normal [facility] Comment on above: Performed By: #### Renita HENSON CMP, #### [facility] ([id number]) [address], [address] [place] [address] MYELOCYTE 1.0 % Normal [facility] Comment on above: Performed By: #### Renita HENSON CMP, #### [facility] ([id number]) [address] [address] [place] [address] Neutrophils (Bld) [#/Vol] 4.5 10*3/uL Normal 1.5-6.6 [facility] Comment on above: Performed By: #### Renita HENSON CMP, #### [facility] ([id number]) [address], [facility] [address] [place] [address] NUCLEATED RBC 1.0 /100 WBC Normal 0.0-1.0 [facility] Comment on above: Performed By: #### Renita HENSON CMP, #### [facility] ([id number]) [address] [place] [address] Platelet mean volume (Bld) [Entitic vol] 8.5 fL Normal 7-12 [facility] Comment on above: Performed By: #### Renita HENSON CMP, #### [facility] ([id number]) [address] [address] [place] [address] Platelets (Bld) [#/Vol] 262 10*3/uL Normal 150-450 [facility] Comment on above: Performed By: #### Renita HENSON CMP, #### [facility] ([id number]) [address] [place] [address] RBC COUNT 2.70 X10E12/L Low 3.80-5.20 [facility] Comment on above: Performed By: #### C BCA, CMP, #### [facility] ([id number]) [address], [address] [place] [address] SEG NEUTROPHIL 59.7 % Normal [facility] Comment on above: Performed By: #### C BCA, CMP, #### [facility] ([id number]) [address] [place] [address] WBC (Bld) [#/Vol] 7.5 10*3/uL Normal 4.0-11.0 [facility] Comment on above: Performed By: #### C BCA, CMP, #### [facility] ([id number]) [address] [place] [address] COMPREHENSIVE METABOLIC PANE Dicksno 02-18-2025 Albumin [Mass/Vol] 3.1 g/dL Low 3.2-5.3 [facility] Comment on above: Performed By: #### C BCA, CMP, #### [facility] ([id number]) [address] [place] [address] ALP [Catalytic activity/Vol] 93 U/L Normal 39-130 [facility] Comment on above: Performed By: #### C BCA, CMP, #### [facility] ([id number]) [address] [place] [address] ALT [Catalytic activity/Vol] 22 U/L Normal 0-31 [facility] Comment on above: Performed By: #### C BCA, CMP, #### [facility] ([id number]) [address], [address] [place] [address] Anion gap [Moles/Vol] 7 mmol/L Normal 5-15 [facility] Comment on above: Performed By: #### C BCA, CMP, #### [facility] ([id number]) [address], [address] [place] [address] AST [Catalytic activity/Vol] 18 U/L Normal 0-41 [facility] Comment on above: Performed By: #### C BCA, CMP, 24175-1 #### [facility] ([id number]) [address], [address] [place] [address] Bilirubin [Mass/Vol] 0.3 mg/dL Normal 0.3-1.2 [facility] Comment on above: Performed By: #### C BCA, CMP, 71962-8 #### [facility] ([id number]) [address], [address] [place] [address] Calcium [Mass/Vol] 9.0 mg/dL Normal 8.5-10.5 [facility] Comment on above: Performed By: #### C BCA, CMP, #### [facility] ([id number]) [address], [address] [place] [address] Chloride [Moles/Vol] 105 mmol/L Normal 98-109 [facility] Comment on above: Performed By: #### C BCA, CMP, #### [facility] ([id number]) [address], [address] [place] [address] CO2 [Moles/Vol] 29 mmol/L Normal 22-32 [facility] Comment on above: Performed By: #### C BCA, CMP, 76301-8 #### [facility] ([id number]) [address], [address] [place] [address] Creatinine [Mass/Vol] 1.30 mg/dL High 0.40-1.00 [facility] Comment on above: Result Comment: METH OD TRACEABLE TO IDMS STANDARD Performed By: #### C BCA, CMP, #### [facility] ([id number]) [address] [place] [address] GFR/1.73 sq M.predicted among non-blacks MDRD (S/P/Bld) [Vol rate/Area] 42 mL/min/{1.73_m2} Low >59 [facility] Comment on above: Result Comment: Reported eGFR is based on the CKD-EPI 2020 equation that does not use a race coefficient. Performed By: #### C [facility] [place], #### [facility] ([id number]) [address], [facility] [address] [place] [address] Glucose [Mass/Vol] 100 mg/dL High 65-99 [facility] Comment on above: Performed By: #### Renita HENSON [place] [facility], #### [facility] ([id number]) [address], [facility] [address] [place] [address] Potassium [Moles/Vol] 4.1 mmol/L Normal 3.5-5.0 [facility] Comment on above: Performed By: #### Renita HENSON [place] [facility], #### [facility] ([id number]) [address], [facility] [address] [place] [address] Protein [Mass/Vol] 6.0 g/dL Normal 6.0-8.0 [facility] Comment on above: Performed By: #### Renita HENSON [place] [facility], #### [facility] ([id number]) [address] [place] [address] Sodium [Moles/Vol] 141 mmol/L Normal 134-146 [facility] Comment on above: Performed By: #### C [facility] [place] [facility], #### [facility] ([id number]) [address] [place] [address] Urea nitrogen [Mass/Vol] 16 mg/dL Normal 5-27 [facility] Comment on above: Performed By: #### Renita HENSON [facility] [facility], #### [facility] ([id number]) [address] [place] [address] Glucose Glucometer (BldC) [M ass/Vol]on 02-18-2025 Glucose [Mass/Vol] 143 mg/dL High 65-99 [facility] Glucose [Mass/Vol] 222 mg/dL High 65-99 [facility] Glucose [Mass/Vol] 247 mg/dL High 65-99 [facility] Glucose [Mass/Vol] 110 mg/dL High 65-99 [facility] MAGNESIUMon 02-18-2025 Magnesium [Mass/Vol] 2.2 mg/dL Normal 1.8-2.6 [facility] Comment on above: Performed By: #### 2 0578-1 #### [facility] ([id number]) [address] [place] [address] Magnesium [Mass/Vol] 1.9 mg/dL Normal 1.8-2.6 [facility] Comment on above: Performed By: #### C [place], [place], 77296-5 #### [facility] ([id number]) [address] [place] [address] BLOOD CULTUREon 02-17-2025 Bacteria identified Aer cx Nom (Bld) SPECIMEN NOTES ONLY AEROBIC BOTTLE RECEIVED, SUBOPTIMAL VOLUME OF BLOOD COLLECTED, RESULTS MAY BE AFFECTED SUBOPTIMAL VOLUME OF BLOOD COLLECTED, RESULTS MAY BE AFFECTED. CULTURE RESULTS NO GROWTH 5 DAYS Normal [facility] Comment on above: Performed By: #### C BCA, [place] [facility], 45789-4 #### [facility] ([id number]) [address] [place] [address] Bacteria identified Aer cx Nom (Bld) SPECIMEN [...] 0.25 F DOXYCYCLINE R >=16 F Resistant [facility] Comment on above: Performed By: #### Renita HENSON CMP, 61796-9 #### [facility] ([id number]) [address] [place] [address] CBC AND AUTO DIFFon 02-18-20 ABSOLUTE BASOPHIL 0.0 X10E9/L Normal 0.0-0.2 [facility] Comment on above: Performed By: #### Renita HENSON CMP, 21562-4 #### [facility] ([id number]) [address] [place] [address] ABSOLUTE NEUTROPHIL 4.7 X10E9/L Normal 1.5-6.6 [facility] Comment on above: Performed By: #### Renita HENSON CMP, 33100-7 #### [facility] ([id number]) [address] [place] [address] Basophils/100 WBC (Bld) 0.5 % Normal [facility] Comment on above: Performed By: #### Renita HENSON CMP, 01131-4 #### [facility] ([id number]) [address] [place] [address] Eosinophils (Bld) [#/Vol] 0.3 10*3/uL Normal 0.0-0.4 [facility] Comment on above: Performed By: #### Renita HENSON CMP, #### [facility] ([id number]) [address] [place] [address] Eosinophils/100 WBC (Bld) 4.4 % Normal [facility] Comment on above: Performed By: #### Renita HENSON CMP, #### [facility] ([id number]) [address] [place] [address] Erythrocyte distribution width (RBC) [Ratio] 16.8 % High 11.5-15.0 [facility] Comment on above: Performed By: #### Renita HENSON CMP, #### [facility] ([id number]) [address], [facility] [address] [place] [address] Hematocrit (Bld) [Volume fraction] 23.6 % Low 35-47 [facility] Comment on above: Performed By: #### Renita HENSON, CMP, #### [facility] ([id number]) [address] [address] [place] [address] Hemoglobin (Bld) [Mass/Vol] 7.8 g/dL Low 11.7-15.5 [facility] Comment on above: Performed By: #### Renita HENSON, CMP, #### [facility] ([id number]) [address] [place] [address] Lymphocytes (Bld) [#/Vol] 1.5 10*3/uL Normal 1.0-3.5 [facility] Comment on above: Performed By: #### Renita HENSON, CMP, #### [facility] ([id number]) [address] [address] [place] [address] Lymphocytes/100 WBC (Bld) 19.4 % Normal [facility] Comment on above: Performed By: #### C [place], CMP, #### [facility] ([id number]) [address] [address] [place] [address] MCH (RBC) [Entitic mass] 27.8 pg Normal 27-34 [facility] Comment on above: Performed By: #### Renita BCA, CMP, #### [facility] ([id number]) [address] [address] [place] [address] MCHC (RBC) [Mass/Vol] 32.9 g/dL Normal 32-36 [facility] Comment on above: Performed By: #### Renita HENSON CMP, #### [facility] ([id number]) [address] [place] [address] MCV (RBC) [Entitic vol] 84 fL Normal 80-100 [facility] Comment on above: Performed By: #### Renita HENSON CMP, #### [facility] ([id number]) [address] [place] [address] Monocytes (Bld) [#/Vol] 1.1 10*3/uL High 0-0.9 [facility] Comment on above: Performed By: #### Renita HENSON CMP, #### [facility] ([id number]) [address] [place] [address] Monocytes/100 WBC (Bld) 14.7 % Normal [facility] Comment on above: Performed By: #### Renita HENSON CMP, #### [facility] ([id number]) [address] [place] [address] Neutrophils/100 WBC (Bld) 61.0 % Normal [facility] Comment on above: Performed By: #### Renita HENSON CMP, #### [facility] ([id number]) [address] [place] [address] Platelet mean volume (Bld) [Entitic vol] 8.4 fL Normal 7-12 [facility] Comment on above: Performed By: #### Renita HENSON CMP, #### [facility] ([id number]) [address] [place] [address] Platelets (Bld) [#/Vol] 243 10*3/uL Normal 150-450 [facility] Comment on above: Performed By: #### C BCA, CMP, 69555-6 #### [facility] ([id number]) [address] [place] [address] RBC COUNT 2.80 X10E12/L Low 3.80-5.20 [facility] Comment on above: Performed By: #### C BCA, CMP, 19643-3 #### [facility] ([id number]) [address] [place] [address] WBC (Bld) [#/Vol] 7.8 10*3/uL Normal 4.0-11.0 [facility] Comment on above: Performed By: #### C [place], CMP, 65026-2 #### [facility] ([id number]) [address] [place] [address] COMPREHENSIVE METABOLIC PANE Dickson 02-17-2025 Albumin [Mass/Vol] 3.2 g/dL Normal 3.2-5.3 [facility] Comment on above: Performed By: #### C [place], CMP, #### [facility] ([id number]) [address] [place] [address] ALP [Catalytic activity/Vol] 98 U/L Normal 39-130 [facility] Comment on above: Performed By: #### C BCA, CMP, #### [facility] ([id number]) [address] [place] [address] ALT [Catalytic activity/Vol] 33 U/L High 0-31 [facility] Comment on above: Performed By: #### C BCA, CMP, 17606-9 #### [facility] ([id number]) [address] [place] [address] Anion gap [Moles/Vol] 7 mmol/L Normal 5-15 [facility] Comment on above: Performed By: #### C BCA, CMP, #### [facility] ([id number]) [address], [address] [place] [address] AST [Catalytic activity/Vol] 32 U/L Normal 0-41 [facility] Comment on above: Performed By: #### C BCA, CMP, #### [facility] ([id number]) [address], [address] [place] [address] Bilirubin [Mass/Vol] 0.2 mg/dL Low 0.3-1.2 [facility] Comment on above: Performed By: #### C BCA, CMP, #### [facility] ([id number]) [address], [address] [place] [address] Calcium [Mass/Vol] 9.1 mg/dL Normal 8.5-10.5 [facility] Comment on above: Performed By: #### C BCA, CMP, #### [facility] ([id number]) [address], [address] [place] [address] Chloride [Moles/Vol] 104 mmol/L Normal 98-109 [facility] Comment on above: Performed By: #### C BCA, CMP, #### [facility] ([id number]) [address], [address] [place] [address] CO2 [Moles/Vol] 27 mmol/L Normal 22-32 [facility] Comment on above: Performed By: #### C BCA, CMP, #### [facility] ([id number]) [address], [address] [place] [address] Creatinine [Mass/Vol] 1.16 mg/dL High 0.40-1.00 [facility] Comment on above: Result Comment: METH OD TRACEABLE TO IDMS STANDARD Performed By: #### C BCA, CMP, #### [facility] ([id number]) [address], [address] [place] [address] GFR/1.73 sq M.predicted among non-blacks MDRD (S/P/Bld) [Vol rate/Area] 48 mL/min/{1.73_m2} Low >59 [facility] Comment on above: Result Comment: Reported eGFR is based on the CKD-EPI 2020 equation that does not use a race coefficient. Performed By: #### [facility], #### [facility] ([id number]) [address], [address] [place] [address] Glucose [Mass/Vol] 159 mg/dL High 65-99 [facility] Comment on above: Performed By: #### [facility], #### [facility] ([id number]) [address], [address] [place] [address] Potassium [Moles/Vol] 4.3 mmol/L Normal 3.5-5.0 [facility] Comment on above: Performed By: #### Renita HENSON [facility], #### [facility] ([id number]) [address], [address] [place] [address] Protein [Mass/Vol] 6.2 g/dL Normal 6.0-8.0 [facility] Comment on above: Performed By: #### Renita HENSON [facility], #### [facility] ([id number]) [address], [address] [place] [address] Sodium [Moles/Vol] 138 mmol/L Normal 134-146 [facility] Comment on above: Performed By: #### C NATIVIDAD [facility], #### [facility] ([id number]) [address], [address] [place] [address] Urea nitrogen [Mass/Vol] 23 mg/dL Normal 5-27 [facility] Comment on above: Performed By: #### Renita HENSON CMP, 32368-4 #### [facility] ([id number]) [address], [address] [place] [address] Glucose Glucometer (dC) [M ass/Vol]on 02-17-2025 Glucose [Mass/Vol] 237 mg/dL High 65-99 [facility] Glucose [Mass/Vol] 162 mg/dL High 65-99 [facility] Glucose [Mass/Vol] 174 mg/dL High 65-99 [facility] Glucose [Mass/Vol] 149 mg/dL High 65-99 [facility] MAGNESIUMon 02-17-2025 Magnesium [Mass/Vol] 2.2 mg/dL Normal 1.8-2.6 [facility] Comment on above: Performed By: #### Renita HENSON CMP, 36223-5 #### [facility] ([id number]) [address], [address] [place] [address] Magnesium [Mass/Vol] 1.7 mg/dL Low 1.8-2.6 [facility] Comment on above: Performed By: #### Renita HENSON CMP, 85715-1 #### [facility] ([id number]) [address], [address] [place] [address] Vancomycin [Mass/Vol]on VANCOMYCIN 17.4 ug/mL Normal 5.0-40.0 [facility] Comment on above: Result Comment: Peak 30-40 ug/mL Trough 5-20 ug/ml Performed By: #### Renita HENSON CMP, 48986-8 #### [facility] ([id number]) [address], [address] [place] [address] CBC AND AUTO DIFFon 02-17-20 25 ABSOLUTE BASOPHIL 0.0 X10E9/L Normal 0.0-0.2 [facility] Comment on above: Performed By: #### C RUBEN HENSON, #### [facility] ([id number]) [address], [address] [place] [address] ABSOLUTE NEUTROPHIL 3.3 X10E9/L Normal 1.5-6.6 [facility] Comment on above: Performed By: #### Renita HENSON CMP, #### [facility] ([id number]) [address], [address] [place] [address] Basophils/100 WBC (Bld) 0.7 % Normal [facility] Comment on above: Performed By: #### Renita HENSON CMP, #### [facility] ([id number]) [address], [address] [place] [address] Eosinophils (Bld) [#/Vol] 0.2 10*3/uL Normal 0.0-0.4 [facility] Comment on above: Performed By: #### Renita HENSON CMP, #### [facility] ([id number]) [address], [address] [place] [address] Eosinophils/100 WBC (Bld) 4.0 % Normal [facility] Comment on above: Performed By: #### C RUBEN HENSON, #### [facility] ([id number]) [address], [address] [place] [address] Erythrocyte distribution width (RBC) [Ratio] 16.9 % High 11.5-15.0 [facility] Comment on above: Performed By: #### Renita HENSON CMP, #### [facility] ([id number]) [address], [address] [place] [address] Hematocrit (Bld) [Volume fraction] 21.0 % Low 35-47 [facility] Comment on above: Performed By: #### C NATIVIDAD CMP, #### [facility] ([id number]) [address], [address] [place] [address] Hemoglobin (Bld) [Mass/Vol] 7.0 g/dL Low 11.7-15.5 [facility] Comment on above: Performed By: #### C BCA, CMP, #### [facility] ([id number]) [address], [address] [place] [address] Lymphocytes (Bld) [#/Vol] 1.6 10*3/uL Normal 1.0-3.5 [facility] Comment on above: Performed By: #### Renita HENSON, CMP, #### [facility] ([id number]) [address], [address] [place] [address] Lymphocytes/100 WBC (Bld) 27.0 % Normal [facility] Comment on above: Performed By: #### Renita BCA, CMP, #### [facility] ([id number]) [address], [address] [place] [address] MCH (RBC) [Entitic mass] 27.8 pg Normal 27-34 [facility] Comment on above: Performed By: #### C BCA, CMP, #### [facility] ([id number]) [address], [address] [place] [address] MCHC (RBC) [Mass/Vol] 33.2 g/dL Normal 32-36 [facility] Comment on above: Performed By: #### C BCA, CMP, #### [facility] ([id number]) [address], [address] [place] [address] MCV (RBC) [Entitic vol] 84 fL Normal 80-100 [facility] Comment on above: Performed By: #### C BCA, CMP, #### [facility] ([id number]) [address], [address] [place] [address] Monocytes (Bld) [#/Vol] 0.8 10*3/uL Normal 0-0.9 [facility] Comment on above: Performed By: #### C NATIVIDAD, CMP, #### [facility] ([id number]) [address], [address] [place] [address] Monocytes/100 WBC (Bld) 13.9 % Normal [facility] Comment on above: Performed By: #### Renita BCA, CMP, #### [facility] ([id number]) [address], [address] [place] [address] Neutrophils/100 WBC (Bld) 54.4 % Normal [facility] Comment on above: Performed By: #### Renita HENSON, CMP, #### [facility] ([id number]) [address], [address] [place] [address] Platelet mean volume (Bld) [Entitic vol] 8.1 fL Normal 7-12 [facility] Comment on above: Performed By: #### Renita BCA, CMP, #### [facility] ([id number]) [address], [address] [place] [address] Platelets (Bld) [#/Vol] 189 10*3/uL Normal 150-450 [facility] Comment on above: Performed By: #### Renita BCA, CMP, #### [facility] ([id number]) [address], [address] [place] [address] RBC COUNT 2.50 X10E12/L Low 3.80-5.20 [facility] Comment on above: Performed By: #### Renita BCA, CMP, #### [facility] ([id number]) [address], [address] [place] [address] WBC (Bld) [#/Vol] 6.0 10*3/uL Normal 4.0-11.0 [facility] Comment on above: Performed By: #### C BCA, CMP, 80893-0 #### [facility] ([id number]) [address], [address] [place] [address] COMPREHENSIVE METABOLIC PANE Dickson 02-16-2025 Albumin [Mass/Vol] 2.8 g/dL Low 3.2-5.3 [facility] Comment on above: Performed By: #### C BCA, CMP, #### [facility] ([id number]) [address], [address] [place] [address] ALP [Catalytic activity/Vol] 90 U/L Normal 39-130 [facility] Comment on above: Performed By: #### C BCA, CMP, #### [facility] ([id number]) [address], [address] [place] [address] ALT [Catalytic activity/Vol] 21 U/L Normal 0-31 [facility] Comment on above: Performed By: #### C BCA, CMP, 81436-9 #### [facility] ([id number]) [address], [address] [place] [address] Anion gap [Moles/Vol] 5 mmol/L Normal 5-15 [facility] Comment on above: Performed By: #### C BCA, CMP, #### [facility] ([id number]) [address], [address] [place] [address] AST [Catalytic activity/Vol] 24 U/L Normal 0-41 [facility] Comment on above: Performed By: #### C BCA, CMP, 28671-2 #### [facility] ([id number]) [address], [address] [place] [address] Bilirubin [Mass/Vol] 0.3 mg/dL Normal 0.3-1.2 [facility] Comment on above: Performed By: #### C BCA, [facility], 73265-9 #### [facility] ([id number]) [address], [address] [place] [address] Calcium [Mass/Vol] 8.4 mg/dL Low 8.5-10.5 [facility] Comment on above: Performed By: #### C BCA, [facility], #### [facility] ([id number]) [address], [address] [place] [address] Chloride [Moles/Vol] 107 mmol/L Normal 98-109 [facility] Comment on above: Performed By: #### C NATIVIDAD [facility], #### [facility] ([id number]) [address], [address] [place] [address] CO2 [Moles/Vol] 28 mmol/L Normal 22-32 [facility] Comment on above: Performed By: #### C NATIVIDAD [facility], #### [facility] ([id number]) [address], [address] [place] [address] Creatinine [Mass/Vol] 1.23 mg/dL High 0.40-1.00 [facility] Comment on above: Result Comment: METH OD TRACEABLE TO IDMS STANDARD Performed By: #### C NATIVIDAD, CMP, #### [facility] ([id number]) [address], [address] [place] [address] GFR/1.73 sq M.predicted among non-blacks MDRD (S/P/Bld) [Vol rate/Area] 45 mL/min/{1.73_m2} Low >59 [facility] Comment on above: Result Comment: Reported eGFR is based on the CKD-EPI 2020 equation that does not use a race coefficient. Performed By: #### C BCA, CMP, #### [facility] ([id number]) [address], [address] [place] [address] Glucose [Mass/Vol] 129 mg/dL High 65-99 [facility] Comment on above: Performed By: #### Renita HENSON [facility], 47348-7 #### [facility] ([id number]) [address], [address] [place] [address] Potassium [Moles/Vol] 4.4 mmol/L Normal 3.5-5.0 [facility] Comment on above: Performed By: #### Renita HENSON CMP, #### [facility] ([id number]) [address], [address] [place] [address] Protein [Mass/Vol] 5.6 g/dL Low 6.0-8.0 [facility] Comment on above: Performed By: #### Renita HENSON CMP, #### [facility] ([id number]) [address] [place] [address] Sodium [Moles/Vol] 140 mmol/L Normal 134-146 [facility] Comment on above: Performed By: #### Renita HENSON CMP, 17592-7 #### [facility] ([id number]) [address] [place] [address] Urea nitrogen [Mass/Vol] 23 mg/dL Normal 5-27 [facility] Comment on above: Performed By: #### Renita HENSON CMP, 66584-2 #### [facility] ([id number]) [address], [address] [place] [address] Glucose Glucometer (BldC) [M ass/Vol]on 02-16-2025 Glucose [Mass/Vol] 291 mg/dL High 65-99 [facility] Glucose [Mass/Vol] 238 mg/dL High 65-99 [facility] Glucose [Mass/Vol] 146 mg/dL High 65-99 [facility] MAGNESIUMon 02-16-2025 Magnesium [Mass/Vol] 1.8 mg/dL Normal 1.8-2.6 [facility] Comment on above: Performed By: #### C BCA, [facility], 68858-2 #### [facility] ([id number]) [address], [address] [place] [address] Vancomycin [Mass/Vol]on VANCOMYCIN 13.8 ug/mL Normal 5.0-40.0 [facility] Comment on above: Result Comment: Peak 30-40 ug/mL Trough 5-20 ug/ml Performed By: #### 2 0578-1 #### [facility] ([id number]) [address], [address] [place] [address] XR SHUNT SERIESon 02-16-2025 XR SHUNT SERIES XR SHUNT SERIES EXAM: XR SHUNT SERIES CLINICAL INFORMATION: confusion. COMPARISON: Single view chest dated 02/14/2025, head CT dated 02/12/2025 FINDINGS: There is a right-sided WELD ENGINEER shunt extending along the right side of [...] pneumatosis or free air. IMPRESSION: 1. Right-sided WELD ENGINEER shunt, looped multiple times in the abdomen with the tip terminating in the left lower quadrant. The visualized shunt catheter is intact without evidence of discontinuity or significant kinking. 2. No acute cardiopulmonary disease. 3. Nonobstructive bowel gas pattern. Finalized by Laci Lima MD on 02/16/2025 9:28 PM Normal [facility] CBC AND AUTO DIFFon 02-16-20 25 ABSOLUTE BASOPHIL 0.0 X10E9/L Normal 0.0-0.2 [facility] Comment on above: Performed By: #### Renita HENSON, CMP, #### [facility] ([id number]) [address], [address] [place] [address] ABSOLUTE NEUTROPHIL 6.2 X10E9/L Normal 1.5-6.6 [facility] Comment on above: Performed By: #### Renita HENSON, CMP, #### [facility] ([id number]) [address], [address] [place] [address] Basophils/100 WBC (Bld) 0.5 % Normal [facility] Comment on above: Performed By: #### Renita HENSON, CMP, #### [facility] ([id number]) [address], [address] [place] [address] Eosinophils (Bld) [#/Vol] 0.2 10*3/uL Normal 0.0-0.4 [facility] Comment on above: Performed By: #### Renita HENSON, CMP, #### [facility] ([id number]) [address], [address] [place] [address] Eosinophils/100 WBC (Bld) 2.3 % Normal [facility] Comment on above: Performed By: #### Renita HENSON, CMP, #### [facility] ([id number]) [address], [address] [place] [address] Erythrocyte distribution width (RBC) [Ratio] 16.8 % High 11.5-15.0 [facility] Comment on above: Performed By: #### Renita HENSON, CMP, #### [facility] ([id number]) [address], [address] [place] [address] Hematocrit (Bld) [Volume fraction] 23.1 % Low 35-47 [facility] Comment on above: Performed By: #### Renita HENSON CMP, #### [facility] ([id number]) [address], [address] [place] [address] Hemoglobin (Bld) [Mass/Vol] 7.5 g/dL Low 11.7-15.5 [facility] Comment on above: Performed By: #### Renita HENSON CMP, #### [facility] ([id number]) [address], [facility] [address] [place] [address] Lymphocytes (Bld) [#/Vol] 1.1 10*3/uL Normal 1.0-3.5 [facility] Comment on above: Performed By: #### Renita HENSON CMP, #### [facility] ([id number]) [address] [place] [address] Lymphocytes/100 WBC (Bld) 12.9 % Normal [facility] Comment on above: Performed By: #### Renita HENSON CMP, #### [facility] ([id number]) [address] [place] [address] MCH (RBC) [Entitic mass] 27.6 pg Normal 27-34 [facility] Comment on above: Performed By: #### Renita HENSON CMP, #### [facility] ([id number]) [address], [address] [place] [address] MCHC (RBC) [Mass/Vol] 32.5 g/dL Normal 32-36 [facility] Comment on above: Performed By: #### Renita HENSON CMP, #### [facility] ([id number]) [address], [address] [place] [address] MCV (RBC) [Entitic vol] 85 fL Normal 80-100 [facility] Comment on above: Performed By: #### C NATIVIDAD, CMP, #### [facility] ([id number]) [address], [address] [place] [address] Monocytes (Bld) [#/Vol] 1.1 10*3/uL High 0-0.9 [facility] Comment on above: Performed By: #### Renita HENSON, CMP, #### [facility] ([id number]) [address] [place] [address] Monocytes/100 WBC (Bld) 13.0 % Normal [facility] Comment on above: Performed By: #### Renita HENSON, CMP, #### [facility] ([id number]) [address], [address] [place] [address] Neutrophils/100 WBC (Bld) 71.3 % Normal [facility] Comment on above: Performed By: #### Renita HENSON, CMP, #### [facility] ([id number]) [address], [address] [place] [address] Platelet mean volume (Bld) [Entitic vol] 7.9 fL Normal 7-12 [facility] Comment on above: Performed By: #### Renita HENSON, CMP, #### [facility] ([id number]) [address] [place] [address] Platelets (Bld) [#/Vol] 202 10*3/uL Normal 150-450 [facility] Comment on above: Performed By: #### Renita HENSON, CMP, #### [facility] ([id number]) [address], [address] [place] [address] RBC COUNT 2.72 X10E12/L Low 3.80-5.20 [facility] Comment on above: Performed By: #### Renita HENSON, CMP, #### [facility] ([id number]) [address], [address] [place] [address] WBC (Bld) [#/Vol] 8.8 10*3/uL Normal 4.0-11.0 [facility] Comment on above: Performed By: #### C BCA, CMP, #### [facility] ([id number]) [address], [address] [place] [address] COMPREHENSIVE METABOLIC PANE Dickson 02-15-2025 Albumin [Mass/Vol] 3.0 g/dL Low 3.2-5.3 [facility] Comment on above: Performed By: #### C BCA, CMP, #### [facility] ([id number]) [address], [address] [place] [address] ALP [Catalytic activity/Vol] 94 U/L Normal 39-130 [facility] Comment on above: Performed By: #### C BCA, CMP, #### [facility] ([id number]) [address], [address] [place] [address] ALT [Catalytic activity/Vol] 31 U/L Normal 0-31 [facility] Comment on above: Performed By: #### C BCA, CMP, #### [facility] ([id number]) [address], [address] [place] [address] Anion gap [Moles/Vol] 8 mmol/L Normal 5-15 [facility] Comment on above: Performed By: #### C BCA, CMP, #### [facility] ([id number]) [address], [address] [place] [address] AST [Catalytic activity/Vol] 42 U/L High 0-41 [facility] Comment on above: Performed By: #### C BCA, CMP, #### [facility] ([id number]) [address], [address] [place] [address] Bilirubin [Mass/Vol] 0.3 mg/dL Normal 0.3-1.2 [facility] Comment on above: Performed By: #### C BCA, [facility], 53485-5 #### [facility] ([id number]) [address], [address] [place] [address] Calcium [Mass/Vol] 8.6 mg/dL Normal 8.5-10.5 [facility] Comment on above: Performed By: #### C BCA, CMP, #### [facility] ([id number]) [address], [address] [place] [address] Chloride [Moles/Vol] 102 mmol/L Normal 98-109 [facility] Comment on above: Performed By: #### C BCA, CMP, #### [facility] ([id number]) [address] [place] [address] CO2 [Moles/Vol] 27 mmol/L Normal 22-32 [facility] Comment on above: Performed By: #### C BCA, CMP, #### [facility] ([id number]) [address] [place] [address] Creatinine [Mass/Vol] 1.44 mg/dL High 0.40-1.00 [facility] Comment on above: Result Comment: METH OD TRACEABLE TO IDMS STANDARD Performed By: #### C BCA, CMP, #### [facility] ([id number]) [address] [place] [address] GFR/1.73 sq M.predicted among non-blacks MDRD (S/P/Bld) [Vol rate/Area] 37 mL/min/{1.73_m2} Low >59 [facility] Comment on above: Result Comment: Reported eGFR is based on the CKD-EPI 2020 equation that does not use a race coefficient. Performed By: #### C BCA, CMP, #### [facility] ([id number]) [address], [address] [place] [address] Glucose [Mass/Vol] 132 mg/dL High 65-99 [facility] Comment on above: Performed By: #### C BCA, CMP, 67963-8 #### [facility] ([id number]) [address], [address] [place] [address] Potassium [Moles/Vol] 4.5 mmol/L Normal 3.5-5.0 [facility] Comment on above: Performed By: #### C BCA, CMP, #### [facility] ([id number]) [address] [place] [address] Protein [Mass/Vol] 6.1 g/dL Normal 6.0-8.0 [facility] Comment on above: Performed By: #### C BCA, CMP, 89829-6 #### [facility] ([id number]) [address] [place] [address] Sodium [Moles/Vol] 137 mmol/L Normal 134-146 [facility] Comment on above: Performed By: #### C BCA, CMP, 35306-9 #### [facility] ([id number]) [address], [address] [place] [address] Urea nitrogen [Mass/Vol] 27 mg/dL Normal 5-27 [facility] Comment on above: Performed By: #### C BCA, CMP, 55187-7 #### [facility] ([id number]) [address] [place] [address] Glucose Glucometer (BldC) [M ass/Vol]on 02-15-2025 Glucose [Mass/Vol] 244 mg/dL High 65-99 [facility] Glucose [Mass/Vol] 127 mg/dL High 65-99 [facility] MAGNESIUMon 02-15-2025 Magnesium [Mass/Vol] 1.9 mg/dL Normal 1.8-2.6 [facility] Comment on above: Performed By: #### C RUBEN HENSON, 90614-8 #### [facility] ([id number]) [address] [place] [address] Vancomycin [Mass/Vol]on VANCOMYCIN 7.8 ug/mL Normal 5.0-40.0 [facility] Comment on above: Result Comment: Peak 30-40 ug/mL Trough 5-20 ug/ml Performed By: #### 2 0578-1 #### [facility] ([id number]) [address], [address] [place] [address] BLOOD CULTUREon 02-14-2025 Bacteria identified Aer cx Nom (Bld) SPECIMEN NOTES SUBOPTIMAL VOLUME OF BLOOD COLLECTED, RESULTS MAY BE AFFECTED. CULTURE RESULTS STAPHYLOCOCCUS AUREUS METHICILLIN RESISTANT FOR SUSCEPTIBILITY, SEE PREVIOUS REPORT. Normal [facility] Comment on above: Performed By: #### 1 7928-3 ####[facility] ([id number])[address], [address] [place] [address] Bacteria identified Aer cx Nom (Bld) SPECIMEN NOTES SUBOPTIMAL VOLUME OF BLOOD COLLECTED, RESULTS MAY BE AFFECTED. CULTURE RESULTS STAPHYLOCOCCUS AUREUS METHICILLIN RESISTANT FOR SUSCEPTIBILITY, SEE PREVIOUS REPORT. Normal [facility] Comment on above: Performed By: #### 1 7928-3 ####[facility] ([id number])[address], [address] [address] CBC AND AUTO DIFFon 02-15-20 25 ABSOLUTE BASOPHIL 0.0 X10E9/L Normal 0.0-0.2 [facility] Comment on above: Performed By: #### C RUBEN HENSON, 75199-3, ####[facility] ([id number])[address] [place] [address] ABSOLUTE NEUTROPHIL 8.4 X10E9/L High 1.5-6.6 [facility] Comment on above: Performed By: #### C NATIVIDAD CMP, 89401-5, ####[facility] ([id number])[address] [place] [address] Basophils/100 WBC (Bld) 0.2 % Normal [facility] Comment on above: Performed By: #### Renita HENSON, CMP, 96858-6, ####[facility] ([id number])[address] [place] [address] Eosinophils (Bld) [#/Vol] 0.0 10*3/uL Normal 0.0-0.4 [facility] Comment on above: Performed By: #### Renita HENSON, CMP, 11180-5, ####[facility] ([id number])[address] [place] [address] Eosinophils/100 WBC (Bld) 0.3 % Normal [facility] Comment on above: Performed By: #### Renita HENSON, CMP, 68501-8, ####[facility] ([id number])[address] [place] [address] Erythrocyte distribution width (RBC) [Ratio] 16.8 % High 11.5-15.0 [facility] Comment on above: Performed By: #### C NATIVIDAD, CMP, 99914-2, ####[facility] ([id number])[address] [place] [address] Hematocrit (Bld) [Volume fraction] 22.6 % Low 35-47 [facility] Comment on above: Performed By: #### Renita BCA, CMP, 91237-3, ####[facility] ([id number])[address] [place] [address] Hemoglobin (Bld) [Mass/Vol] 7.4 g/dL Low 11.7-15.5 [facility] Comment on above: Performed By: #### C NATIVIDAD CMP, 44256-2, ####[facility] ([id number])[address] [place] [address] Lymphocytes (Bld) [#/Vol] 1.3 10*3/uL Normal 1.0-3.5 [facility] Comment on above: Performed By: #### C NATIVIDAD CMP, 83627-8, ####[facility] ([id number])[address] [place] [address] 46222 Lymphocytes/100 WBC (Bld) 12.2 % Normal [facility] Comment on above: Performed By: #### Renita HENSON CMP, 61244-1, ####[facility] ([id number])[address] [place] [address] 85852 MCH (RBC) [Entitic mass] 27.9 pg Normal 27-34 [facility] Comment on above: Performed By: #### C NATIVIDAD CMP, 91062-3, ####[facility] ([id number])[address] [place] [address] 29680 MCHC (RBC) [Mass/Vol] 33.0 g/dL Normal 32-36 [facility] Comment on above: Performed By: #### C NATIVIDAD CMP, 86314-6, ####[facility] ([id number])[address] [place] [address] 79932 MCV (RBC) [Entitic vol] 84 fL Normal 80-100 [facility] Comment on above: Performed By: #### C BCA CMP, 93755-0, ####[facility] ([id number])[address] [place] [address] 17874 Monocytes (Bld) [#/Vol] 0.9 10*3/uL Normal 0-0.9 [facility] Comment on above: Performed By: #### C NATIVIDAD, CMP, 98789-5, ####[facility] ([id number])[address] [place] [address] 22847 Monocytes/100 WBC (Bld) 8.1 % Normal [facility] Comment on above: Performed By: #### C NATIVIDAD, CMP, 98232-9, ####[facility] ([id number])[address] [place] [address] 60068 Neutrophils/100 WBC (Bld) 79.2 % Normal [facility] Comment on above: Performed By: #### C NATIVIDAD, CMP, 55986-9, ####[facility] ([id number])[address] [place] [address] 53667 Platelet mean volume (Bld) [Entitic vol] 7.7 fL Normal 7-12 [facility] Comment on above: Performed By: #### C NATIVIDAD, CMP, 61448-2, ####[facility] ([id number])[address] [place] [address] 98902 Platelets (Bld) [#/Vol] 208 10*3/uL Normal 150-450 [facility] Comment on above: Performed By: #### C BCA, CMP, 28648-3, ####[facility] ([id number])[address] [place] [address] 18109 RBC COUNT 2.67 X10E12/L Low 3.80-5.20 [facility] Comment on above: Performed By: #### C BCA, CMP, 97913-6, ####[facility] ([id number])[address] [place] [address] 60765 WBC (Bld) [#/Vol] 10.5 10*3/uL Normal 4.0-11.0 [facility] Comment on above: Performed By: #### C BCA, CMP, 41519-3, ####[facility] ([id number])[address] [place] [address] 83599 COMPREHENSIVE METABOLIC PANE Dickson 02-14-2025 Albumin [Mass/Vol] 2.8 g/dL Low 3.2-5.3 [facility] Comment on above: Performed By: #### C BCA, CMP, 95562-6, ####[facility] ([id number])[address] [place] [address] 89869 ALP [Catalytic activity/Vol] 88 U/L Normal 39-130 [facility] Comment on above: Performed By: #### C NATIVIDAD, CMP, 65756-6, ####[facility] ([id number])[address] [place] [address] 58248 ALT [Catalytic activity/Vol] 21 U/L Normal 0-31 [facility] Comment on above: Performed By: #### C BCA, CMP, 21082-6, ####[facility] ([id number])[address] [place] [address] 87775 Anion gap [Moles/Vol] 9 mmol/L Normal 5-15 [facility] Comment on above: Performed By: #### C BCA, CMP, 72425-5, ####[facility] ([id number])[address] [place] [address] 03971 AST [Catalytic activity/Vol] 27 U/L Normal 0-41 [facility] Comment on above: Performed By: #### C BCA, CMP, 21805-7, ####[facility] ([id number])[address] [place] [address] 84652 Bilirubin [Mass/Vol] 0.3 mg/dL Normal 0.3-1.2 [facility] Comment on above: Performed By: #### C BCA, CMP, 25440-4, ####[facility] ([id number])[address] [place] [address] 08429 Calcium [Mass/Vol] 8.5 mg/dL Normal 8.5-10.5 [facility] Comment on above: Performed By: #### C BCA, CMP, 06541-1, ####[facility] ([id number])[address] [place] [address] 39159 Chloride [Moles/Vol] 99 mmol/L Normal 98-109 [facility] Comment on above: Performed By: #### C BCA, CMP, 56274-1, ####[facility] ([id number])[address] [place] [address] 78691 CO2 [Moles/Vol] 26 mmol/L Normal 22-32 [facility] Comment on above: Performed By: #### C BCA, CMP, 23494-7, ####[facility] ([id number])[address] [place] [address] [place] [address] Creatinine [Mass/Vol] 1.96 mg/dL High 0.40-1.00 [facility] Comment on above: Result Comment: METH OD TRACEABLE TO IDMS STANDARD Performed By: #### C BCA, CMP, 27990-3, ####[facility] ([id number])[address], [place] [address] GFR/1.73 sq M.predicted among non-blacks MDRD (S/P/Bld) [Vol rate/Area] 26 mL/min/{1.73_m2} Low >59 [facility] Comment on above: Result Comment: Repo rted eGFR is based on theCKD-EPI 2020 equation that doesnot use a race coefficient. Performed By: #### C RUBEN HENSON, 20120-0, ####[facility] ([id number])[address] [place] [address] 28302 Glucose [Mass/Vol] 187 mg/dL High 65-99 [facility] Comment on above: Performed By: #### C RUBEN HENSON, 32525-5, ####[facility] ([id number])[address] [place] [address] 65530 Potassium [Moles/Vol] 4.4 mmol/L Normal 3.5-5.0 [facility] Comment on above: Performed By: #### C RUBEN HENSON, 32857-0, ####[facility] ([id number])[address] [place] [address] 57459 Protein [Mass/Vol] 6.1 g/dL Normal 6.0-8.0 [facility] Comment on above: Performed By: #### C RUBEN HENSON, 67792-8, ####[facility] ([id number])[address] [place] [address] 50384 Sodium [Moles/Vol] 134 mmol/L Normal 134-146 [facility] Comment on above: Performed By: #### C RUBEN HENSON, 00581-6, ####[facility] ([id number])[address] [place] [address] 34431 Urea nitrogen [Mass/Vol] 38 mg/dL High 5-27 [facility] Comment on above: Performed By: #### C NATIVIDAD [facility], 49527-6, 63087-5 ####[facility] ([id number])[address] [place] [address] CHEST WO CONTon CT CHEST WO CONT Normal [facility] Glucose Glucometer (BldC) [M ass/Vol]on 02-14-2025 Glucose [Mass/Vol] 161 mg/dL High 65-99 [facility] Glucose [Mass/Vol] 278 mg/dL High 65-99 [facility] Lactate (P obed) [Moles/Vol]o n 02-14-2025 LACTATE W/REFLEX 1.8 mmol/L Normal 0.4-2.0 [facility] Comment on above: Result Comment: Resu lt did not trigger repeat Lactate,re-order if needed. Performed By: #### 3 2133-1 ####[facility] ([id number])[address] [place] [address] 49309 MAGNESIUMon 02-14-2025 Magnesium [Mass/Vol] 2.0 mg/dL Normal 1.8-2.6 [facility] Comment on above: Performed By: #### C NATIVIDAD [facility], 59347-7, 60317-8 ####[facility] ([id number])[address] [place] [address] 93389 Magnesium Ionized ISE (Bld) [Moles/Vol]on 02-14-2025 Magnesium [Moles/Vol] 0.53 mmol/L Normal 0.45-0.74 [facility] Comment on above: Result Comment: NEW REFERENCE RANGE Performed By: #### 7 3572-0 ####[facility] ([id number])[address] [facility], [address] [place] [address] 97037 Procalcitonin IA [Mass/Vol]o n 02-14-2025 PROCALCITONIN 14.12 ng/mL High <0.05 [facility] Comment on above: Result Comment: NOTE <0.50 ng/mL - Low risk of severe sepsis and/or septic shock.<2.00 ng/mL - Recommend retesting within 6-24 hours.>2.00 ng/mL - High risk of sepsis and/or septic shock. Performed By: #### C BCA, CMP, 47301-5, 53818-0 ####[facility] ([id number])[address] [place] [address] XR CHEST 1 VWon 02-14-2025 XR CHEST 1 VW Normal [facility] BLOOD CULTUREon 02-13-2025 Bacteria identified Aer cx Nom (Bld) CULTURE RESULTS STAPHYLOCOCCUS AUREUS METHICILLIN RESISTANT FOR SUSCEPTIBILITY, SEE PREVIOUS REPORT. [facility] Comment on above: Performed By: #### 1 7928-3 ####[facility] ([id number])[address], [address] [place] [address]11 Bacteria identified Aer cx Nom (Bld) CULTURE RESULTS STAPHYLOCOCCUS AUREUS METHICILLIN RESISTANT FOR SUSCEPTIBILITY, SEE PREVIOUS REPORT. Normal [facility] Comment on above: Performed By: #### 1 7928-3 ####[facility] ([id number])[address], [address] [place] [address] 00806 CBC AND AUTO DIFFon 02-14-20 25 ABSOLUTE BASOPHIL 0.0 X10E9/L Normal 0.0-0.2 [facility] Comment on above: Performed By: #### F EPR, 6-4, 26935-0, 8, 2132-07 ####[facility] ([id number])[address], [address] [place] [address] 50160#### CBCA, 54243-8, CMP ####[facility] ([id number])[address] [place] [address] 43363 ABSOLUTE NEUTROPHIL 13.1 X10E9/L High 1.5-6.6 [facility] Comment on above: Performed By: #### F EPR, 6-4, 63463-3, 2284-06, 2132-07 ####[facility] ([id number])[address] [facility], [address] [place] [address] 92011#### CBCA, , CMP ####[facility] ([id number])[address] [place] [address] 82903 Basophils/100 WBC (Bld) 0.2 % Normal [facility] Comment on above: Performed By: #### F EPR, 2276-4, 74633-5, 2284-06, 2132-07 ####[facility] ([id number])[address] [facility], [address] [place] [address] 84938#### CBCDanielle, , CMP ####[facility] ([id number])[address] [place] [address] 94818 Eosinophils (Bld) [#/Vol] 0.0 10*3/uL Normal 0.0-0.4 [facility] Comment on above: Performed By: #### F EPR, 6-4, 87538-9, 2284-06, 2132-07 ####[facility] ([id number])[address] [facility], [address] [place] [address] 44783#### CBCA, , CMP ####[facility] ([id number])[address] [place] [address] 59590 Eosinophils/100 WBC (Bld) 0.0 % Normal [facility] Comment on above: Performed By: #### F EPR, 2276-4, 28746-3, 2284-06, 2132-07 ####[facility] ([id number])[address] [facility], [address] [place] [address] 66746#### CBCA, , CMP ####[facility] ([id number])[address] [place] [address] 87533 Erythrocyte distribution width (RBC) [Ratio] 16.8 % High 11.5-15.0 [facility] Comment on above: Performed By: #### F EPR, 6-4, 24742-6, 2284-06, 2132-07 ####[facility] ([id number])[address], [address] [place] [address] 88109#### CBCDanielle, 37048-9, CMP ####[facility] ([id number])[address] [place] [address] 95894 Hematocrit (Bld) [Volume fraction] 24.2 % Low 35-47 [facility] Comment on above: Performed By: #### F EPR, 6-4, 23885-4, 2284-06, 2132-07 ####[facility] ([id number])[address], [address] [address]#### CARMEN, 62857-9, CMP ####[facility] ([id number])[address] [place] [address] 22129 Hemoglobin (Bld) [Mass/Vol] 7.9 g/dL Low 11.7-15.5 [facility] Comment on above: Performed By: #### F EPR, 6-4, 67037-0, 2284-06, 2132-07 ####[facility] ([id number])[address], [address] [place] [address] 12058#### CBCA, 15139-2, CMP ####[facility] ([id number])[address] [place] [address] 90209 Lymphocytes (Bld) [#/Vol] 0.4 10*3/uL Low 1.0-3.5 [facility] Comment on above: Performed By: #### F EPR, 6-4, 42649-3, 2284-06, 2132-07 ####[facility] ([id number])[address], [address] [place] [address] 04786#### CARMEN, 28385-0, CMP ####[facility] ([id number])[address] [place] [address] 50934 Lymphocytes/100 WBC (Bld) 2.7 % Normal [facility] Comment on above: Performed By: #### F EPR, 6-4, 65842-1, 2284-06, 2132-07 ####[facility] ([id number])[address], [address] [place] [address] 91880#### CARMEN, , CMP ####[facility] ([id number])[address] [place] [address] 67322 MCH (RBC) [Entitic mass] 27.6 pg Normal 27-34 [facility] Comment on above: Performed By: #### F EPR, 6-4, 92576-4, 2284-06, 2132-07 ####[facility] ([id number])[address] [address] [place] [address] 67259#### CARMEN, , CMP ####[facility] ([id number])[address] [place] [address] 77504 MCHC (RBC) [Mass/Vol] 32.8 g/dL Normal 32-36 [facility] Comment on above: Performed By: #### F EPR, 6-4, 77161-0, 2284-06, 2132-07 ####[facility] ([id number])[address] [address] [place] [address] 49054#### CARMEN, , CMP ####[facility] ([id number])[address] [place] [address] 57793 MCV (RBC) [Entitic vol] 84 fL Normal 80-100 [facility] Comment on above: Performed By: #### F EPR, 6-4, 18973-8, 8, 2132-07 ####[facility] ([id number])[address], [address] [place] [address] 74701#### CARMEN, , CMP ####[facility] ([id number])[address] [place] [address] 75185 Monocytes (Bld) [#/Vol] 0.8 10*3/uL Normal 0-0.9 [facility] Comment on above: Performed By: #### F EPR, 6-4, 82652-6, 2284-06, 2132-07 ####[facility] ([id number])[address], [address] [place] [address] 66431#### CARMEN, , CMP ####[facility] ([id number])[address] [place] [address] 60236 Monocytes/100 WBC (Bld) 5.4 % Normal [facility] Comment on above: Performed By: #### F EPR, 6-4, 54393-9, 2284-06, 2132-07 ####[facility] ([id number])[address], [address] [place] [address] 20890#### CARMEN, , CMP ####[facility] ([id number])[address] [place] [address] 48326 Neutrophils/100 WBC (Bld) 91.7 % Normal [facility] Comment on above: Performed By: #### F EPR, 6-4, 28612-6, 2284-06, 2132-07 ####[facility] ([id number])[address], [address] [place] [address] 22702#### CARMEN, , CMP ####[facility] ([id number])[address] [place] [address] 25337 Platelet mean volume (Bld) [Entitic vol] 7.9 fL Normal 7-12 [facility] Comment on above: Performed By: #### F EPR, 2276-4, 22862-8, 8, 2132-07 ####[facility] ([id number])[address] [facility], [address] [place] [address] 59704#### CBCA, 08049-6, CMP ####[facility] ([id number])[address] [place] [address] 36137 Platelets (Bld) [#/Vol] 273 10*3/uL Normal 150-450 [facility] Comment on above: Performed By: #### F EPR, 6-4, 31799-2, 2284-06, 2132-07 ####[facility] ([id number])[facility], [address] [address]#### CBCA, 90578-3, CMP ####[facility] ([id number])[address] [place] [address] 30306 RBC COUNT 2.87 X10E12/L Low 3.80-5.20 [facility] Comment on above: Performed By: #### F EPR, 6-4, 20247-2, 2284-06, 2132-07 ####[facility] ([id number])[address] [facility], [address] [address]#### CBCA, 62969-3, CMP ####[facility] ([id number])[address] [place] [address] 14984 WBC (Bld) [#/Vol] 14.3 10*3/uL High 4.0-11.0 [facility] Comment on above: Performed By: #### F EPR, 6-4, 70699-6, 2284-06, 2132-07 ####[facility] ([id number])[address], [address] [place] [address] 36630#### CARMEN, 76827-5, CMP ####[facility] ([id number])[address] [place] [address] 91006 COMPREHENSIVE METABOLIC PANE Dickson 02-13-2025 Albumin [Mass/Vol] 3.0 g/dL Low 3.2-5.3 [facility] Comment on above: Performed By: #### F EPR, 2276-4, 50575-5, 8, 2132-07 ####[facility] ([id number])[address] [facility], [address] [place] [address] 96323#### CARMEN, 64730-7, CMP ####[facility] ([id number])[address] [place] [address] 84201 ALP [Catalytic activity/Vol] 104 U/L Normal 39-130 [facility] Comment on above: Performed By: #### F EPR, 2276-4, 10782-7, 2284-06, 2132-07 ####[facility] ([id number])[address] [facility], [address] [place] [address] 09606#### CBCDanielle, 21989-1, CMP ####[facility] ([id number])[address] [place] [address] 32452 ALT [Catalytic activity/Vol] 14 U/L Normal 0-31 [facility] Comment on above: Performed By: #### F EPR, 2276-4, 54637-6, 8, 2132-07 ####[facility] ([id number])[address], [address] [place] [address] 25221#### CBCA, 23457-0, CMP ####[facility] ([id number])[address] [place] [address] 84035 Anion gap [Moles/Vol] 8 mmol/L Normal 5-15 [facility] Comment on above: Performed By: #### F EPR, 6-4, 98374-3, 2284-06, 2132-07 ####[facility] ([id number])[address], [address] [place] [address] 74460#### CARMEN, 59854-0, CMP ####[facility] ([id number])[address] [place] [address] 43173 AST [Catalytic activity/Vol] 19 U/L Normal 0-41 [facility] Comment on above: Performed By: #### F EPR, 6-4, 44719-4, 2284-06, 2132-07 ####[facility] ([id number])[address] [facility], [address] [place] [address] 67457#### CARMEN, 44466-0, CMP ####[facility] ([id number])[address] [place] [address] 70212 Bilirubin [Mass/Vol] 0.6 mg/dL Normal 0.3-1.2 [facility] Comment on above: Performed By: #### F EPR, 6-4, 81004-3, 2284-06, 2132-07 ####[facility] ([id number])[address], [address] [place] [address] 60474#### CARMEN, 25117-8, CMP ####[facility] ([id number])[address] [place] [address] 05206 Calcium [Mass/Vol] 8.1 mg/dL Low 8.5-10.5 [facility] Comment on above: Performed By: #### F EPR, 6-4, 72137-2, 2284-06, 2132-07 ####[facility] ([id number])[address], [address] [place] [address] 15234#### CARMEN, 49172-4, CMP ####[facility] ([id number])[address] [place] [address] 88526 Chloride [Moles/Vol] 103 mmol/L Normal 98-109 [facility] Comment on above: Performed By: #### F EPR, 2276-4, 10999-3, 2283-8, 2132-07 ####[facility] ([id number])[address], [address] [place] [address] 53586#### CARMEN, 21717-9, CMP ####[facility] ([id number])[address] [place] [address] 39608 CO2 [Moles/Vol] 25 mmol/L Normal 22-32 [facility] Comment on above: Performed By: #### F EPR, 6-4, 19573-8, 2284-06, 2132-07 ####[facility] ([id number])[address] [address] [place] [address] 24761#### CARMEN, 96738-3, CMP ####[facility] ([id number])[address] [place] [address] 47630 Creatinine [Mass/Vol] 1.73 mg/dL High 0.40-1.00 [facility] Comment on above: Result Comment: METH OD TRACEABLE TO IDMS STANDARD Performed By: #### F EPR, 2276-4, 56928-7, 2283-8, 2132-07 ####[facility] ([id number])[address], [address] [place] [address] 22493#### CARMEN, 78724-0, CMP ####[facility] ([id number])[address] [place] [address] 33815 GFR/1.73 sq M.predicted among non-blacks MDRD (S/P/Bld) [Vol rate/Area] 30 mL/min/{1.73_m2} Low >59 [facility] Comment on above: Result Comment: Repo rted eGFR is based on theD-EPI 2020 equation that doesnot use a race coefficient. Performed By: #### F EPR, 6-4, 34920-2, 8, 2132-07 ####[facility] ([id number])[address], [address] [place] [address]#### CARMEN, 70059-4, CMP ####[facility] ([id number])[address] [place] [address] 06759 Glucose [Mass/Vol] 238 mg/dL High 65-99 [facility] Comment on above: Performed By: #### F EPR, 2275-4, 34580-9, 2284-06, 2132-07 ####[facility] ([id number])[address], [address] [place] [address]29#### CARMEN, 32630-7, CMP ####[facility] ([id number])[address] [place] [address] 38410 Potassium [Moles/Vol] 4.5 mmol/L Normal 3.5-5.0 [facility] Comment on above: Performed By: #### F EPR, 6-4, 31941-7, 2284-06, 2132-07 ####[facility] ([id number])[address] [address] [place] [address]#### CARMEN, 10416-9, CMP ####[facility] ([id number])[address] [place] [address] 48803 Protein [Mass/Vol] 6.5 g/dL Normal 6.0-8.0 [facility] Comment on above: Performed By: #### F EPR, 6-4, 36119-8, 2284-06, 2132-07 ####[facility] ([id number])[address] [facility], [address] [place] [address]#### CARMEN, 93959-0, CMP ####[facility] ([id number])[address] [place] [address] 62799 Sodium [Moles/Vol] 136 mmol/L Normal 134-146 [facility] Comment on above: Performed By: #### F EPR, 2276-4, 54895-2, 2284-06, 2132-07 ####[facility] ([id number])[address] [facility], [address] [place] [address]68#### CARMEN, 53242-2, CMP ####[facility] ([id number])[address] [place] [address] 02915 Urea nitrogen [Mass/Vol] 34 mg/dL High 5-27 [facility] Comment on above: Performed By: #### F EPR, 6-4, 27869-3, 2284-06, 2132-07 ####[facility] ([id number])[address] [facility], [address] [place] [address]#### CARMEN, 72128-6, CMP ####[facility] ([id number])[address] [place] [address] 70926 FECAL OCCULT BLOODon 025 Hemoglobin.gastro intestinal Ql (Stl) Negative Normal NEG [facility] Comment on above: Performed By: #### 2 335-8 ####[facility] ([id number])[address] [place] [address]001 FERRITINon 02-13-2025 Ferritin [Mass/Vol] 98 ng/mL Normal 11-307 [facility] Comment on above: Performed By: #### F EPR, 2276-4, 17011-5, 8, 2132-07 ####[facility] ([id number])[address] [place] [address], [address] [place] [address]61#### CBCA, 91750-8, CMP ####[facility] ([id number])[address] [place] [address] 81932 Folate [Mass/Vol]on 02-14-20 25 FOLIC ACID 5.2 ng/mL Low >5.8 [facility] Comment on above: Result Comment: NEW REFERENCE RANGE Performed By: #### F EPR, 2276-4, 03944-4, 2284-8, 2131-9 ####[facility] ([id number])[address] [place] [address], [address] [place] [address]#### CBCA, 13855-6, CMP ####[facility] ([id number])[address] [place] [address] 93675 Glucose Glucometer (BldC) [M ass/Vol]on 02-13-2025 Glucose [Mass/Vol] 218 mg/dL High 65-99 [facility] Glucose [Mass/Vol] 277 mg/dL High 65-99 [facility] Glucose [Mass/Vol] 259 mg/dL High 65-99 [facility] Glucose [Mass/Vol] 210 mg/dL High 65-99 [facility] HGBon 02-13-2025 Hematocrit (Bld) [Volume fraction] 24.3 % Low 35-47 [facility] Comment on above: Performed By: #### H H ####[facility] ([id number])[address] [place] [address] 47732 Hemoglobin (Bld) [Mass/Vol] 7.9 g/dL Low 11.7-15.5 [facility] Comment on above: Performed By: #### H H ####[facility] ([id number])[address] [place] [address] 63710 IRON PROFILEon 02-13-2025 Iron [Mass/Vol] 11 ug/dL Low 50-170 [facility] Comment on above: Performed By: #### F EPR, 2276-4, 19348-2, 2283-8, 2132-07 ####[facility] ([id number])[address], [address] [place] [address]#### CARMEN, 11405-9, CMP ####[facility] ([id number])[address] [place] [address] 60974 IRON BINDING 279 ug/dL Normal 250-425 [facility] Comment on above: Performed By: #### F EPR, 6-4, 62417-2, 2284-06, 2132-07 ####[facility] ([id number])[address] [facility], [address] [place] [address]#### CARMEN, 09982-5, CMP ####[facility] ([id number])[address] [place] [address] 96824 IRON SATURATION 4 % SATURATION Low 15-50 [facility] Comment on above: Performed By: #### F EPR, 6-4, 93617-1, 2284-06, 2132-07 ####[facility] ([id number])[address], [address] [place] [address] 57[address]#### CARMEN, 57206-7, CMP ####[facility] ([id number])[address] [place] [address] 63826 MAGNESIUMon 02-13-2025 Magnesium [Mass/Vol] 1.9 mg/dL Normal 1.8-2.6 [facility] Comment on above: Performed By: #### 1 9123-9 ####[facility] ([id number])[address] [place] [address] 28928 Magnesium [Mass/Vol] 1.7 mg/dL Low 1.8-2.6 [facility] Comment on above: Performed By: #### F EPR, 6-4, 20849-2, 8, 2132-07 ####[facility] ([id number])[address], [address] [place] [address] 64453#### CARMEN, 58005-8, CMP ####[facility] ([id number])[address] [place] [address] 92741 VITAMIN B12on 02-13-2025 Cobalamin (Vitamin B12) [Mass/Vol] 187 pg/mL Normal 180-914 [facility] Comment on above: Performed By: #### F EPR, 6-4, 41890-5, 2284-06, 2132-07 ####[facility] ([id number])0 [facility], [address] [place] [address]#### CARMEN, 54044-7, CMP ####[facility] ([id number])[address] [place] [address] 20185 Vitamin D+Metabolites [Mass/ Vol]on 02-13-2025 VITAMIN D 25 HYD TOT 36.2 ng/mL Normal 30-100 [facility] Comment on above: Result Comment: Veronica min D status 25 [place] Vitamin D Deficiency <20 ng/mLInsufficiency 20-29 ng/mLSufficiency 30-100 ng/mLToxicity >100 ng/mLNOTE: A pediatric reference range has not beenestablished by the maintenance technician of this kit.The [place] [employer] recommendsa Vitamin D level of = or >20ng/mL in infantsand children. Performed By: #### F EPR, 2276-4, 39820-3, 2283-, 2132-07 ####[facility] ([id number])[address] [facility], [address] [place] [address]#### CBCA, 17219-4, CMP ####[facility] ([id number])[address] [place] [address] 84487 ARTERIAL BLOOD GASon 025 TATO'S TEST Normal [facility] Comment on above: Performed By: #### A BG ####[facility] ([id number])[address] [place] [address] 73061 Base excess Calc (Bld) [Moles/Vol] 4.0 mmol/L High 0.0-2.0 [facility] Comment on above: Performed By: #### A BG ####[facility] ([id number])[address] [place] [address] 20518 Body temperature 98.6 [degF] Normal 37.0 [facility] Comment on above: Performed By: #### A BG ####[facility] ([id number])[address] [place] [address] 61134 HCO3 (Bld) [Moles/Vol] 29.9 mmol/L High 22-26 [facility] Comment on above: Performed By: #### A BG ####[facility] ([id number])[address] [place] [address] 35805 INSP. O2 CONC. 30 % Normal [facility] Comment on above: Performed By: #### A BG ####[facility] ([id number])[address] [place] [address] 78755 Oxygen (Bld) [Partial pressure] 76 mm[Hg] Low 80-100 [facility] Comment on above: Performed By: #### A BG ####[facility] ([id number])[address] [place] [address] 15710 Oxygen saturation in Blood 95.0 % Normal >90 [facility] Comment on above: Performed By: #### A BG ####[facility] ([id number])[address] [place] [address], [place] [address] OXYGEN SOURCE NC Normal [facility] Comment on above: Performed By: #### A BG ####[facility] ([id number])[address] [place] [address], [place] [address] PCO2 49.9 MMHG High 35-45 [facility] Comment on above: Performed By: #### A BG ####[facility] ([id number])[address] [place] [address], [place] [address] pH (Bld) 7.386 [pH] Normal 7.350-7.45 0 [facility] Comment on above: Performed By: #### A BG ####[facility] ([id number])[address] [place] [address] 02014 SAMPLE SITE RRad Normal [facility] Comment on above: Performed By: #### A BG ####[facility] ([id number])[address] [place] [address] [place] [address] SAMPLE TYPE ARTERIAL Normal [facility] Comment on above: Performed By: #### A BG ####[facility] ([id number])[address] [place] [address], [place] [address] BLOOD CULTUREon 02-12-2025 Bacteria identified Aer cx Nom (Bld) Resistant [facility] Comment on above: Performed By: #### 1 7928-3 ####[facility] ([id number])[address] [place] [address], [place] [address] ([id number])[address] [facility], [address], [place] [address] Bacteria identified Aer cx Nom (Bld) SPECIMEN NOTES RAC CULTURE RESULTS STAPHYLOCOCCUS AUREUS METHICILLIN RESISTANT FOR SUSCEPTIBILITY, SEE PREVIOUS REPORT. [facility] Comment on above: Performed By: #### 1 7928-3 ####[facility] ([id number])[address] [place] [address] [facility] ([id number])[address] [facility], [address], [place] [address] CBC AND AUTO DIFFon 02-13-20 25 ABSOLUTE BASOPHIL 0.0 X10E9/L Normal 0.0-0.2 [facility] Comment on above: Performed By: #### C BCA, 3040-3, 27024-7, 90384-9, CMP, 98464- 9, PINR, 78475-8 ####[facility] ([id number])[address] [place] [address] 24242 ABSOLUTE NEUTROPHIL 6.3 X10E9/L Normal 1.5-6.6 [facility] Comment on above: Performed By: #### C BCA, 3040-3, 89294-0, 20016-2, CMP, 17839- 9, PINR, 07834-5 ####[facility] ([id number])[address] [place] [address] 26196 Basophils/100 WBC (Bld) 0.4 % Normal [facility] Comment on above: Performed By: #### C BCA, 3040-3, 28353-8, 43858-4, CMP, 51422- 9, PINR, 26995-1 ####[facility] ([id number])[address] [place] [address] 47513 Eosinophils (Bld) [#/Vol] 0.1 10*3/uL Normal 0.0-0.4 [facility] Comment on above: Performed By: #### C BCA, 3040-3, 58290-2, 39234-2, CMP, 82074- 9, PINR, 57823-6 ####[facility] ([id number])[address] [place] [address] 27654 Eosinophils/100 WBC (Bld) 1.1 % Normal [facility] Comment on above: Performed By: #### C BCA, 3040-3, 80723-9, 20529-9, CMP, 15097- 9, PINR, 64976-3 ####[facility] ([id number])[address] [place] [address] 19952 Erythrocyte distribution width (RBC) [Ratio] 17.0 % High 11.5-15.0 [facility] Comment on above: Performed By: #### C BCA, 3040-3, 33870-2, 44171-4, CMP, 51516- 9, PINR, 19405-2 ####[facility] ([id number])[address] [place] [address] 55699 Hematocrit (Bld) [Volume fraction] 29.2 % Low 35-47 [facility] Comment on above: Performed By: #### C BCA, 3040-3, 43397-0, 92784-5, CMP, 56079- 9, PINR, 35265-3 ####[facility] ([id number])[address] [place] [address] 75216 Hemoglobin (Bld) [Mass/Vol] 9.5 g/dL Low 11.7-15.5 [facility] Comment on above: Performed By: #### C BCA, 3040-3, 00456-0, 22263-5, CMP, 14585- 9, PINR, 30688-3 ####[facility] ([id number])[address] [place] [address] 02127 Lymphocytes (Bld) [#/Vol] 0.7 10*3/uL Low 1.0-3.5 [facility] Comment on above: Performed By: #### C BCA, 3040-3, 02173-1, 98332-0, CMP, 89140- 9, PINR, 92746-8 ####[facility] ([id number])[address] [place] [address] 39625 Lymphocytes/100 WBC (Bld) 9.2 % Normal [facility] Comment on above: Performed By: #### C BCA, 3040-3, 78088-2, 72280-6, CMP, 05700- 9, PINR, 30793-9 ####[facility] ([id number])[address] [place] [address] 64922 MCH (RBC) [Entitic mass] 27.3 pg Normal 27-34 [facility] Comment on above: Performed By: #### C BCA, 3040-3, 38162-2, 15098-5, CMP, 04292- 9, PINR, 41692-6 ####[facility] ([id number])[address] [place] [address] 85418 MCHC (RBC) [Mass/Vol] 32.6 g/dL Normal 32-36 [facility] Comment on above: Performed By: #### C BCA, 3040-3, 92774-0, 42371-1, CMP, 19676- 9, PINR, 55501-6 ####[facility] ([id number])[address] [place] [address] 93050 MCV (RBC) [Entitic vol] 84 fL Normal 80-100 [facility] Comment on above: Performed By: #### C BCA, 3040-3, 94203-7, 83743-5, CMP, 96018- 9, PINR, 21487-4 ####[facility] ([id number])[address] [place] [address] 01335 Monocytes (Bld) [#/Vol] 0.5 10*3/uL Normal 0-0.9 [facility] Comment on above: Performed By: #### C BCA, 3040-3, 92446-6, 61787-0, CMP, 61055- 9, PINR, 21400-1 ####[facility] ([id number])[address] [place] [address] 90680 Monocytes/100 WBC (Bld) 7.0 % Normal [facility] Comment on above: Performed By: #### C BCA, 3040-3, 51987-3, 18005-1, CMP, 59653- 9, PINR, 02273-1 ####[facility] ([id number])[address] [place] [address] 95981 Neutrophils/100 WBC (Bld) 82.3 % Normal [facility] Comment on above: Performed By: #### C BCA, 3040-3, 32214-7, 04141-4, CMP, 05269- 9, PINR, 06618-4 ####[facility] ([id number])[address] [place] [address] 94037 Platelet mean volume (Bld) [Entitic vol] 7.6 fL Normal 7-12 [facility] Comment on above: Performed By: #### C BCA, 3040-3, 00123-1, 50673-4, CMP, 88196- 9, PINR, 59989-6 ####[facility] ([id number])[address] [place] [address] 08088 Platelets (Bld) [#/Vol] 384 10*3/uL Normal 150-450 [facility] Comment on above: Performed By: #### C BCA, 3040-3, 94957-0, 17271-9, CMP, 85166- 9, PINR, 65846-2 ####[facility] ([id number])[address] [place] [address] 86730 RBC COUNT 3.49 X10E12/L Low 3.80-5.20 [facility] Comment on above: Performed By: #### C BCA, 3040-3, 39782-8, 31844-7, CMP, 45430- 9, PINR, 58109-4 ####[facility] ([id number])[address] [place] [address] 26678 WBC (Bld) [#/Vol] 7.7 10*3/uL Normal 4.0-11.0 [facility] Comment on above: Performed By: #### C BCA, 3040-3, 67324-1, 65001-8, CMP, 46753- 9, PINR, 29900-3 ####[facility] ([id number])[address] [place] [address] 73608 COMPREHENSIVE METABOLIC PANE Dickson 02-12-2025 Albumin [Mass/Vol] 3.7 g/dL Normal 3.2-5.3 [facility] Comment on above: Performed By: #### C BCA, 3040-3, 38764-6, 27055-2, CMP, 62778- 9, PINR, 62941-8 ####[facility] ([id number])[address] [place] [address] 90175 ALP [Catalytic activity/Vol] 137 U/L High 39-130 [facility] Comment on above: Performed By: #### C BCA, 3040-3, 06789-5, 12454-9, CMP, 05644- 9, PINR, 71407-4 ####[facility] ([id number])[address] [place] [address] 68375 ALT [Catalytic activity/Vol] 17 U/L Normal 0-31 [facility] Comment on above: Performed By: #### C BCA, 3040-3, 36434-8, 55957-1, CMP, 80515- 9, PINR, 95264-1 ####[facility] ([id number])[address] [place] [address] 69061 Anion gap [Moles/Vol] 11 mmol/L Normal 5-15 [facility] Comment on above: Performed By: #### C BCA, 3040-3, 42643-0, 59099-1, CMP, 91422- 9, PINR, 23807-5 ####[facility] ([id number])[address] [place] [address] 91744 AST [Catalytic activity/Vol] 22 U/L Normal 0-41 [facility] Comment on above: Performed By: #### C BCA, 3040-3, 69823-9, 64640-6, CMP, 66115- 9, PINR, 12401-4 ####[facility] ([id number])[address] [place] [address] 70231 Bilirubin [Mass/Vol] 0.6 mg/dL Normal 0.3-1.2 [facility] Comment on above: Performed By: #### C BCA, 3040-3, 36951-6, 35793-8, CMP, 19747- 9, PINR, 47459-2 ####[facility] ([id number])[address] [place] [address] 75449 Calcium [Mass/Vol] 9.4 mg/dL Normal 8.5-10.5 [facility] Comment on above: Performed By: #### C BCA, 3040-3, 89868-3, 14903-4, CMP, 99429- 9, PINR, 99243-1 ####[facility] ([id number])[address] [place] [address] 83648 Chloride [Moles/Vol] 98 mmol/L Normal 98-109 [facility] Comment on above: Performed By: #### C BCA, 3040-3, 61190-4, 09021-4, CMP, 95728- 9, PINR, 07598-7 ####[facility] ([id number])[address] [place] [address] [place] [address] CO2 [Moles/Vol] 28 mmol/L Normal 22-32 [facility] Comment on above: Performed By: #### C BCA, 3040-3, 30425-1, 68217-7, CMP, 75653- 9, PINR, 40406-6 ####[facility] ([id number])[address] [place] [address] 19256 Creatinine [Mass/Vol] 1.79 mg/dL High 0.40-1.00 [facility] Comment on above: Result Comment: METH OD TRACEABLE TO IDMS STANDARD Performed By: #### C BCA, 3040-3, 78531-6, 89619-1, CMP, 49713-6, PINR, 56070-6 ####[facility] ([id number])[address] [place] [address] 83401 GFR/1.73 sq M.predicted among non-blacks MDRD (S/P/Bld) [Vol rate/Area] 29 mL/min/{1.73_m2} Low >59 [facility] Comment on above: Result Comment: Repo rted eGFR is based on theCKD-EPI 2020 equation that doesnot use a race coefficient. Performed By: #### C BCA, 3040-3, 76251-2, 44449-6, CMP, 86629-2, PINR, 68007-6 ####[facility] ([id number])[address] [place] [address] 07602 Glucose [Mass/Vol] 159 mg/dL High 65-99 [facility] Comment on above: Performed By: #### C BCA, 3040-3, 30296-6, 50095-8, CMP, 37471- 9, PINR, 42937-5 ####[facility] ([id number])[address] [place] [address] 72819 Potassium [Moles/Vol] 5.1 mmol/L High 3.5-5.0 [facility] Comment on above: Performed By: #### C BCA, 3040-3, 15971-1, 63515-8, CMP, 34731- 9, PINR, 28489-5 ####[facility] ([id number])[address] [place] [address] 24217 Protein [Mass/Vol] 8.0 g/dL Normal 6.0-8.0 [facility] Comment on above: Performed By: #### C BCA, 3040-3, 17040-9, 01104-0, CMP, 56734- 9, PINR, 51987-1 ####[facility] ([id number])[address] [place] [address] 98823 Sodium [Moles/Vol] 137 mmol/L Normal 134-146 [facility] Comment on above: Performed By: #### C BCA, 3040-3, 45723-0, 15744-9, CMP, 61362- 9, PINR, 99051-0 ####[facility] ([id number])[address] [place] [address] 61701 Urea nitrogen [Mass/Vol] 29 mg/dL High 5-27 [facility] Comment on above: Performed By: #### C BCA, 3040-3, 69153-2, 97427-4, CMP, 01521- 9, PINR, 04923-5 ####[facility] ([id number])[address] [place] [address] BRAIN WO CONTon CT BRAIN WO CONT Normal [facility] LIPASEon 02-12-2025 Lipase [Catalytic activity/Vol] 26 U/L Normal 17-40 [facility] Comment on above: Performed By: #### C BCA, 3040-3, 13126-3, 80753-7, CMP, 40811- 9, PINR, 28488-4 ####[facility] ([id number])[address] [place] [address] 49762 Lactate (P obed) [Moles/Vol]o n 02-12-2025 LACTATE W/REFLEX 0.9 mmol/L Normal 0.4-2.0 [facility] Comment on above: Result Comment: Resu lt did not trigger repeat Lactate,re-order if needed. Performed By: #### 3 2133-1 ####[facility] ([id number])[address] [place] [address] 05798 MAGNESIUMon 02-12-2025 Magnesium [Mass/Vol] 1.9 mg/dL Normal 1.8-2.6 [facility] Comment on above: Performed By: #### C BCA, 3040-3, 68012-5, 68338-2, CMP, 37853- 9, PINR, 85022-9 ####[facility] ([id number])[address] [place] [address] 08316 PROTIME AND INRon 02-12-2025 INR Coag (PPP) [Relative time] 1.0 {INR} Normal 0.9-1.2 [facility] Comment on above: Performed By: #### C BCA, 3040-3, 47071-5, 32461-9, CMP, 12391- 9, PINR, 52025-9 ####[facility] ([id number])[address] [place] [address] 09095 PT Coag (PPP) [Time] 11.7 s Normal 9.8-13.2 [facility] Comment on above: Result Comment: NEW REFERENCE RANGE Performed By: #### C BCA, 3040-3, 42356-8, 55827-1, CMP, 94727-8, PINR, 12797-9 ####[facility] ([id number])[address] [place] [address] 11147 Procalcitonin IA [Mass/Vol]o n 02-12-2025 PROCALCITONIN 0.14 ng/mL High <0.05 [facility] Comment on above: Result Comment: NOTE <0.50 ng/mL - Low risk of severe sepsis and/or septic shock.<2.00 ng/mL - Recommend retesting within 6-24 hours.>2.00 ng/mL - High risk of sepsis and/or septic shock. Performed By: #### C BCA, 3040-3, 34503-2, 77822-1, CMP, 29404-7, PINR, 81913-0 ####[facility] ([id number])[address] [place] [address] 41214 SARS/FLU A+B/RSV by NAAT/Mol ecularon 02-12-2025 SARS/FLU A+B/RSV by NAAT/Molecular Normal [facility] Comment on above: Performed By: #### C OVFLR ####[facility] ([id number])[address] [place] [address] 61514 Troponin I.cardiac High sens itivity method [Mass/Vol]on 02-12-2025 1 HOUR TROP I, HIGH SENSITIVITY 12 ng/L Normal <16 [facility] Comment on above: Performed By: #### 8 9579-7 ####[facility] ([id number])[address] [place] [address] 47819 TROPONIN I, HIGH SENSITIVITY 13 ng/L Normal <16 [facility] Comment on above: Performed By: #### C BCA, 3040-3, 23949-7, 93653-9, CMP, 07203- 9, PINR, 29172-8 ####[facility] ([id number])[address] [place] [address] 08162 URINALYSISon 02-12-2025 Bilirubin Ql (U) Negative Normal NEG [facility] Comment on above: Performed By: #### U A ####[facility] ([id number])[address] [place] [address] 80764 BLOOD/HGB Trace Abnormal NEG [facility] Comment on above: Performed By: #### U A ####[facility] ([id number])[address] [place] [address], [place] [address] Color (U) YELLOW Normal YELLOW [facility] Comment on above: Performed By: #### U A ####[facility] ([id number])[address] [place] [address], [place] [address] Glucose Ql (U) Negative Normal NEG [facility] Comment on above: Performed By: #### U A ####[facility] ([id number])[address] [place] [address], [place] [address] Ketones Ql (U) Trace Abnormal NEG [facility] Comment on above: Performed By: #### U A ####[facility] ([id number])[address] [place] [address], [place] [address] Leukocyte esterase Test strip Ql (U) SMALL Abnormal NEG [facility] Comment on above: Performed By: #### U A ####[facility] ([id number])[address] [place] [address], [place] [address] Nitrite Ql (U) Positive Abnormal NEG [facility] Comment on above: Performed By: #### U A ####[facility] ([id number])[address] [place] [address], [place] [address] pH (U) 6.5 [pH] Normal 5.0-8.5 [facility] Comment on above: Performed By: #### U A ####[facility] ([id number])[address] [place] [address], [place] [address] Protein Ql (U) 30 mg/dL Abnormal NEG [facility] Comment on above: Performed By: #### U A ####[facility] ([id number])[address] [place] [address], [place] [address] R.B.CELLS 14 /hpf High 0-5 [facility] Comment on above: Performed By: #### U A ####[facility] ([id number])[address] [place] [address] [place] [address] Specific gravity (U) [Rel density] 1.020 Normal 1.003-1.03 5 [facility] Comment on above: Performed By: #### U A ####[facility] ([id number])[address] [place] [address] SQUAMOUS EPITHELIUM 1 /hpf Normal 0-5 [facility] Comment on above: Performed By: #### U A ####[facility] ([id number])[address] [place] [address] TRANSITIONAL EPITH 1 /hpf High 0 [facility] Comment on above: Performed By: #### U A ####[facility] ([id number])[address] [place] [address] TURBIDITY HAZY Abnormal CLEAR [facility] Comment on above: Performed By: #### U A ####[facility] ([id number])[address] [place] [address] Urobilinogen Qn (U) 0.2 {Artie'U}/dL Normal <1.1 [facility] Comment on above: Performed By: #### U A ####[facility] ([id number])[address] [place] [address] W.B.CELLS >100 High 0-5 [facility] Comment on above: Performed By: #### U A ####[facility] ([id number])[address] [place] [address] WBC CLUMPS FEW Abnormal NONE [facility] Comment on above: Performed By: #### U A ####[facility] ([id number])[address] [place] [address] URINE CULTUREon 02-12-2025 Bacteria identified Cx Nom (U) Susceptible [facility] Comment on above: Performed By: #### 6 30-4 ####[facility] ([id number])[address] [place] [address], [address], [place] [address] URN MACROSCOPIC NURon 2024 BILIRUBIN MARYJO Negative Normal NEG [facility] Comment on above: Performed By: #### N UM ####[facility] ([id number])[address] [place] [address] [place] [address] BLOOD/HGB MARYJO Trace Abnormal NEG [facility] [facility] Comment on above: Performed By: #### N UM ####[facility] ([id number])[address] [place] [address] 62074 GLUCOSE MARYJO 100 mg/dL Abnormal NEG [facility] Comment on above: Performed By: #### N UM ####[facility] ([id number])[address] [place] [address] [place] [address] KETONES MARYJO 15 mg/dL Abnormal NEG [facility] Comment on above: Performed By: #### N UM ####[facility] ([id number])[address] [place] [address] 91817 LEUKOCYTE ESTERASE MARYJO Small Abnormal NEG [facility] Comment on above: Performed By: #### N UM ####[facility] ([id number])[address] [place] [address] [place] [address] NITRITE MARYJO Positive Abnormal NEG [facility] Comment on above: Performed By: #### N UM ####[facility] ([id number])[address] [place] [address] 87085 PH MARYJO 6.5 Normal 5.0-8.5 [facility] Comment on above: Performed By: #### N UM ####[facility] ([id number])[address] [place] [address] 45125 PROTEIN MARYJO 100 mg/dL Abnormal NEG [facility] Comment on above: Performed By: #### N UM ####[facility] ([id number])[address] [place] [address] 40543 SPECIFIC GRAVITY MARYJO 1.020 Normal 1.003-1.03 5 [facility] Comment on above: Performed By: #### N UM ####[facility] ([id number])[address] [place] [address] 26995 UROBILINOGEN MARYJO 0.2 eu/dL Normal <1.1 [facility] Comment on above: Performed By: #### N UM ####[facility] ([id number])[address] [place] [address] 36855 XR CHEST 1 VWon 02-12-2025 XR CHEST 1 VW Normal [facility] aPTT Coag (PPP) [Time]on aPTT Coag (Bld) [Time] 28 s Normal 26-37 [facility] Comment on above: Result Comment: NEW REFERENCE RANGE Performed By: #### C BCA, 3040-3, 48400-1, 93340-1, CMP, 37675-5, PINR, 44462-0 ####[facility] ([id number])[address] [place] [address] 60252 MICROALBUMIN - ALBUMIN:CREAT ININE URINE RATIOon 02-03-2025 ALB/CREAT RATIO 16.2 mg/g creat Normal 0.0-30.0 [facility] Comment on above: Performed By: #### M ALBU ####[facility] ([id number])[address] [place] [address], [address] [address]#### UA ####[facility] ([id number])[address] [place] [address] 43709 Albumin DL <= 20 mg/L (U) [Mass/Vol] 1.3 mg/dL Normal 0.0-1.9 [facility] Comment on above: Performed By: #### M ALBU ####[facility] ([id number])[address] [facility], [address] [place] [address]#### UA ####[facility] ([id number])[address] [place] [address] 02312 URINE CREAT 80.04 mg/dL Normal [facility] Comment on above: Performed By: #### M ALBU ####[facility] ([id number])0 [facility], [address] [place] [address] 333[address]#### UA ####[facility] ([id number])[address] [place] [address] 99350 URINALYSISon 02-03-2025 Bilirubin Ql (U) Negative Normal NEG [facility] Comment on above: Performed By: #### M ALBU ####[facility] ([id number])0 [facility], [address] [place] [address]#### UA ####[facility] ([id number])[address] [place] [address] 76720 BLOOD/HGB Trace Abnormal NEG [facility] Comment on above: Performed By: #### M ALBU ####[facility] ([id number])0 [facility] [address] [place] [address]#### UA ####[facility] ([id number])[address] [place] [address] 33135 Color (U) YELLOW Normal YELLOW [facility] Comment on above: Performed By: #### M ALBU ####[facility] ([id number])[address] [facility], [address] [place] [address] 15701#### UA ####[facility] ([id number])[address] [place] [address] [place] [address] Glucose Ql (U) 250 mg/dL Abnormal NEG [facility] Comment on above: Performed By: #### M ALBU ####[facility] ([id number])[address] [place] [address], [address] [address]#### UA ####[facility] ([id number])[address] [place] [address] 07961 Ketones Ql (U) Negative Normal NEG [facility] Comment on above: Performed By: #### M ALBU ####[facility] ([id number])[address] [place] [address]#### UA ####[facility] ([id number])[address] [place] [address] 45924 Leukocyte esterase Test strip Ql (U) SMALL Abnormal NEG [facility] Comment on above: Performed By: #### M ALBU ####[facility] ([id number])[address] [place] [address]#### UA ####[facility] ([id number])[address] [place] [address] 35382 Nitrite Ql (U) Positive Abnormal NEG [facility] Comment on above: Performed By: #### M ALBU ####[facility] ([id number])[address] [place] [address]#### UA ####[facility] ([id number])[address] [place] [address] 73963 pH (U) 6.0 [pH] Normal 5.0-8.5 [facility] Comment on above: Performed By: #### M ALBU ####[facility] ([id number])[address] [place] [address] 285[address]#### UA ####[facility] ([id number])[address] [place] [address] 32596 Protein Ql (U) Negative Normal NEG [facility] Comment on above: Performed By: #### M ALBU ####[facility] ([id number])[address], [address] [address]#### UA ####[facility] ([id number])[address] [place] [address] 63729 R.B.CELLS 2 /hpf Normal 0-5 [facility] Comment on above: Performed By: #### M ALBU ####[facility] ([id number])[address] [address]#### UA ####[facility] ([id number])[address] [place] [address] 55043 Specific gravity (U) [Rel density] 1.015 Normal 1.003-1.03 5 [facility] Comment on above: Performed By: #### M ALBU ####[facility] ([id number])[address] [address]#### UA ####[facility] ([id number])[address] [place] [address] 85832 SQUAMOUS EPITHELIUM 3 /hpf Normal 0-5 [facility] Comment on above: Performed By: #### M ALBU ####[facility] ([id number])0 [facility] [address] [place] [address]#### UA ####[facility] ([id number])[address] [place] [address] 27675 TURBIDITY HAZY Abnormal CLEAR [facility] Comment on above: Performed By: #### M ALBU ####[facility] ([id number])[address] [address]#### UA ####[facility] ([id number])[address] [place] [address] 55267 Urobilinogen Qn (U) 0.2 {Artie'U}/dL Normal <1.1 [facility] Comment on above: Performed By: #### M ALBU ####[facility] ([id number])[address] [address]#### UA ####[facility] ([id number])[address] [place] [address] 53897 W.B.CELLS >100 High 0-5 [facility] Comment on above: Performed By: #### M ALBU ####[facility] ([id number])[address] [address]#### UA ####[facility] ([id number])[address] [place] [address] 76825 WBC CLUMPS FEW Abnormal NONE [facility] Comment on above: Performed By: #### M ALBU ####[facility] ([id number])[address] [address]#### UA ####[facility] ([id number])[address] [place] [address] 50464 BASIC METABOLIC PANLon 02-02 Anion gap [Moles/Vol] 12 mmol/L Normal 5-15 [facility] Comment on above: Performed By: #### C BCA, 2777-1, 72397-8, BMP, 30455-4, 2731-8 ####[facility] ([id number])[address] [address] Calcium [Mass/Vol] 9.0 mg/dL Normal 8.5-10.5 [facility] Comment on above: Performed By: #### C BCA, 2777-1, 76465-5, BMP, 21793-1, 2730-8 ####[facility] ([id number])[address] [address] [place] [address] 04001 Chloride [Moles/Vol] 95 mmol/L Low 98-109 [facility] Comment on above: Performed By: #### C BCA, 2777-1, 86842-9, BMP, 23481-1, 2730-8 ####[facility] ([id number])[address] [address] CO2 [Moles/Vol] 30 mmol/L Normal 22-32 [facility] Comment on above: Performed By: #### C BCA, 2777-1, 10104-1, BMP, 49145-5, 2730- ####[facility] ([id number])[address] [address] Creatinine [Mass/Vol] 2.12 mg/dL High 0.40-1.00 [facility] Comment on above: Result Comment: METH OD TRACEABLE TO IDMS STANDARD Performed By: #### C BCA, 2777-1, 62293-9, BMP, 96641-3, 2730- ####[facility] ([id number])[address] [address] GFR/1.73 sq M.predicted among non-blacks MDRD (S/P/Bld) [Vol rate/Area] 23 mL/min/{1.73_m2} Low >59 [facility] Comment on above: Result Comment: Repo rted eGFR is based on theCKD-EPI 2020 equation that doesnot use a race coefficient. Performed By: #### C BCA, 2777-1, 23918-1, BMP, 47064-5, 2730-8 ####[facility] ([id number])[address] [address] Glucose [Mass/Vol] 268 mg/dL High 65-99 [facility] Comment on above: Performed By: #### Renita HENSON, 2777-1, 73837-6, BMP, , 2731-06 ####[facility] ([id number])[address], [address] [place] [address] 87801 Potassium [Moles/Vol] 5.1 mmol/L High 3.5-5.0 [facility] Comment on above: Performed By: #### C NATIVIDAD, 2777-1, 48735-3, BMP, 97101-9, 2731-06 ####[facility] ([id number])[address], [address] [place] [address] 88723 Sodium [Moles/Vol] 137 mmol/L Normal 134-146 [facility] Comment on above: Performed By: #### Renita HENSON, 2777-1, 27177-8, BMP, , 2731-06 ####[facility] ([id number])[address] [address] Urea nitrogen [Mass/Vol] 40 mg/dL High 5-27 [facility] Comment on above: Performed By: #### Renita HENSON, 2777-1, 59920-8, BMP, 92750-2, 2731-06 ####[facility] ([id number])[address] [address] CBC AND AUTO DIFFon 02-03-20 25 ABSOLUTE BASOPHIL 0.0 X10E9/L Normal 0.0-0.2 [facility] Comment on above: Performed By: #### Renita BCA, 2777-1, 73829-3, BMP, , 2731-06 ####[facility] ([id number])[address] [address] [place] [address] 10190 ABSOLUTE NEUTROPHIL 2.9 X10E9/L Normal 1.5-6.6 [facility] Comment on above: Performed By: #### C NATIVIDAD, 2777-1, 68156-3, BMP, , 2731-06 ####[facility] ([id number])[address], [address] [place] [address] 24683 Basophils/100 WBC (Bld) 0.5 % Normal [facility] Comment on above: Performed By: #### Renita HENSON, 2777-1, 87593-8, BMP, , 2731-06 ####[facility] ([id number])[address] [address] [place] [address] 85226 Eosinophils (Bld) [#/Vol] 0.3 10*3/uL Normal 0.0-0.4 [facility] Comment on above: Performed By: #### Renita HENSON, 7-1, 55052-2, BMP, , 2731-06 ####[facility] ([id number])[address] [address] [place] [address] 01219 Eosinophils/100 WBC (Bld) 5.4 % Normal [facility] Comment on above: Performed By: #### Renita HENSON, 2777-, 61968-8, BMP, , 2731-06 ####[facility] ([id number])[address] [address] [place] [address] 06777 Erythrocyte distribution width (RBC) [Ratio] 16.4 % High 11.5-15.0 [facility] Comment on above: Performed By: #### Renita HENSON, 2777-1, 91412-1, BMP, , 2731-06 ####[facility] ([id number])[address] [address] Hematocrit (Bld) [Volume fraction] 29.2 % Low 35-47 [facility] Comment on above: Performed By: #### Renita BCA, 2777-1, 47891-7, BMP, 74467-1, 2731-06 ####[facility] ([id number])[address], [address] [address] Hemoglobin (Bld) [Mass/Vol] 9.5 g/dL Low 11.7-15.5 [facility] Comment on above: Performed By: #### Renita BCA, 2777-1, 40159-2, BMP, 74465-6, 2731-06 ####[facility] ([id number])[address], [address] [place] [address]289 Lymphocytes (Bld) [#/Vol] 1.8 10*3/uL Normal 1.0-3.5 [facility] Comment on above: Performed By: #### Renita BCA, 2777-1, 59293-0, BMP, 66453-0, 2731-06 ####[facility] ([id number])[address], [address] [place] [address] 56738 Lymphocytes/100 WBC (Bld) 31.9 % Normal [facility] Comment on above: Performed By: #### Renita BCA, 2777-1, 47568-2, BMP, , 2731-06 ####[facility] ([id number])[address], [address] [place] [address] 92528 MCH (RBC) [Entitic mass] 27.6 pg Normal 27-34 [facility] Comment on above: Performed By: #### C BCA, 2777-1, 31375-1, BMP, 09095-8, 2731-06 ####[facility] ([id number])[address] [address] [place] [address] 86226 MCHC (RBC) [Mass/Vol] 32.7 g/dL Normal 32-36 [facility] Comment on above: Performed By: #### Renita BCA, 2777-1, 79364-1, BMP, 44001-1, 2731-06 ####[facility] ([id number])[address], [address] [address] MCV (RBC) [Entitic vol] 84 fL Normal 80-100 [facility] Comment on above: Performed By: #### Renita HENSON, 2777-1, 93706-5, BMP, 54361-1, 2731-06 ####[facility] ([id number])[address], [address] [address] Monocytes (Bld) [#/Vol] 0.6 10*3/uL Normal 0-0.9 [facility] Comment on above: Performed By: #### Renita HENSON, 2777-1, 66577-2, BMP, 31580-3, 2731-06 ####[facility] ([id number])[address] [address], [place] [address] Monocytes/100 WBC (Bld) 10.2 % Normal [facility] Comment on above: Performed By: #### Renita HENSON, 2777-1, 40955-2, BMP, 06819-3, 2731-06 ####[facility] ([id number])[address] [address], [place] [address] Neutrophils/100 WBC (Bld) 52.0 % Normal [facility] Comment on above: Performed By: #### Renita HENSON, 2777-1, 72965-9, BMP, 73258-0, 2731-06 ####[facility] ([id number])[address], [address] [address] Platelet mean volume (Bld) [Entitic vol] 8.0 fL Normal 7-12 [facility] Comment on above: Performed By: #### Renita BCA, 2777-1, 41370-9, BMP, 91195-2, 2730- ####[facility] ([id number])[address] [address] [address] Platelets (Bld) [#/Vol] 338 10*3/uL Normal 150-450 [facility] Comment on above: Performed By: #### Renita HENSON, 2777-1, 87580-9, [facility], , 2731-06 ####[facility] ([id number])[address], [address], [place] [address] RBC COUNT 3.46 X10E12/L Low 3.80-5.20 [facility] Comment on above: Performed By: #### Renita HENSON, 7-1, 30068-8, [facility], , 2731-06 ####[facility] ([id number])[address], [address] [place] [address] WBC (Bld) [#/Vol] 5.6 10*3/uL Normal 4.0-11.0 [facility] Comment on above: Performed By: #### Renita HENSON, 2777-1, 69577-5, [facility], , 2731-06 ####[facility] ([id number])[address], [address], [place] [address] MAGNESIUMon 02-02-2025 Magnesium [Mass/Vol] 2.0 mg/dL Normal 1.8-2.6 [facility] Comment on above: Performed By: #### Renita HENSON, 2777-1, 28391-8, [facility], , 2731-06 ####[facility] ([id number])[address], [address] [place] [address] PHOSPHORUSon 02-02-2025 Phosphate [Mass/Vol] 4.7 mg/dL Normal 2.4-4.9 [facility] Comment on above: Performed By: #### Renita HENSON, 2777-1, 89200-5, BMP, , 2731-06 ####[facility] ([id number])[address], [address], [place] [address] Parathyrin.intact [Mass/Vol] on 02-02-2025 PTH INTACT 140 pg/mL High 12-88 [facility] Comment on above: Performed By: #### C NATIVIDAD, 2777-1, 61204-9, [facility], 91664-8, 2730-8 ####[facility] ([id number])[address] [place] [address], [address] [place] [address] Vitamin D+Metabolites [Mass/ Vol]on 02-02-2025 VITAMIN D 25 HYD TOT 48.7 ng/mL Normal 30-100 [facility] Comment on above: Result Comment: Veronica min D status 25 [place] Vitamin D Deficiency <20 ng/mLInsufficiency 20-29 ng/mLSufficiency 30-100 ng/mLToxicity >100 ng/mLNOTE: A pediatric reference range has not beenestablished by the maintenance technician of this kit.The [place] [employer] recommendsa Vitamin D level of = or >20ng/mL in infantsand children. Performed By: #### C NATIVIDAD, 2777-1, 28914-8, [facility], 77161-0, 2730-8 ####[facility] ([id number])[address] [place] [address], [address] [place] [address] CANCER ANTIGEN 27.29on 01-22 CANCER ANTGN 27.29 56.4 U/mL High <=39.0 [facility] Comment on above: Result Comment: NOTE [...] alone for a diagnosis of malignancy.Methodology: Siemens AtellEZ4U IM BR 27.29 (BR) chemiluminescentimmunoassay was used. Results obtained with different assaymethods or kits cannot be used interchangeably.Performed By: [address] [address]Glyjrqfmrm Director: Brendon Ruiz MD, PhDCLIA Number: [id number] Performed By: #### C FAITH, 6875-9, CBCA ####[facility] ([id number])[address] [place] [address]#### CANTGN ####[facility] ([id number])[address] [place] [address]79 CBC AND AUTO DIFFon 01-22-20 25 ABSOLUTE BASOPHIL 0.0 X10E9/L Normal 0.0-0.2 [facility] Comment on above: Performed By: #### C FAITH, 6875-9, CBCA ####[facility] ([id number])[address] [place] [address]#### CANTGN ####[facility] ([id number])[address] [place] [address] 26081 ABSOLUTE NEUTROPHIL 4.9 X10E9/L Normal 1.5-6.6 [facility] Comment on above: Performed By: #### C FAITH, 6875-9, CBCA ####[facility] ([id number])[address] [place] [address]#### CANTGN ####[facility] ([id number])[address] [place] [address] 15835 Basophils/100 WBC (Bld) 0.6 % Normal [facility] Comment on above: Performed By: #### C FAITH, 6875-9, CBCA ####[facility] ([id number])0 [facility], [address] [place] [address]#### CANTGN ####[facility] ([id number])[address] [place] [address] 13285 Eosinophils (Bld) [#/Vol] 0.2 10*3/uL Normal 0.0-0.4 [facility] Comment on above: Performed By: #### Renita CUEVAS 6875-9, CBCA ####[facility] ([id number])0 [facility], [address] [place] [address]#### CANTGN ####[facility] ([id number])[address] [place] [address] 01009 Eosinophils/100 WBC (Bld) 2.1 % Normal [facility] Comment on above: Performed By: #### Renita CUEVAS 6875-9, CBCA ####[facility] ([id number])0 [facility] [address] [place] [address]#### CANTGN ####[facility] ([id number])[address] [place] [address] 19186 Erythrocyte distribution width (RBC) [Ratio] 16.2 % High 11.5-15.0 [facility] Comment on above: Performed By: #### Renita CUEVAS 6875-9, CBCA ####[facility] ([id number])0 [facility], [address] [place] [address]#### CANTGN ####[facility] ([id number])[address] [place] [address]5054 Hematocrit (Bld) [Volume fraction] 29.1 % Low 35-47 [facility] Comment on above: Performed By: #### Renita CUEVAS 6875-9, CBCA ####[facility] ([id number])[address] [place] [address]#### CANTGN ####[facility] ([id number])[address] [place] [address] 16958 Hemoglobin (Bld) [Mass/Vol] 9.6 g/dL Low 11.7-15.5 [facility] Comment on above: Performed By: #### Renita CUEVAS, 6875-9, CBCA ####[facility] ([id number])[address] [place] [address]#### CANTGN ####[facility] ([id number])[address] [place] [address] 57780 Lymphocytes (Bld) [#/Vol] 1.4 10*3/uL Normal 1.0-3.5 [facility] Comment on above: Performed By: #### Renita CUEVAS, 68759, CBCA ####[facility] ([id number])[address] [place] [address]#### CANTGN ####[facility] ([id number])[address] [place] [address] 89709 Lymphocytes/100 WBC (Bld) 19.6 % Normal [facility] Comment on above: Performed By: #### Renita CUEVAS, 6875-9, CBCA ####[facility] ([id number])[address] [place] [address]#### CANTGN ####[facility] ([id number])[address] [place] [address] 31876 MCH (RBC) [Entitic mass] 27.3 pg Normal 27-34 [facility] Comment on above: Performed By: #### Renita CUEVAS 6875-9, CBCA ####[facility] ([id number])[address] [place] [address]#### CANTGN ####[facility] ([id number])[address] [place] [address] 36241 MCHC (RBC) [Mass/Vol] 32.9 g/dL Normal 32-36 [facility] Comment on above: Performed By: #### Renita CUEVAS, 6875-9, CBCA ####[facility] ([id number])[address] [address]#### CANTGN ####[facility] ([id number])[address] [place] [address] 35622 MCV (RBC) [Entitic vol] 83 fL Normal 80-100 [facility] Comment on above: Performed By: #### Renita CUEVAS, 6875-9, CBCA ####[facility] ([id number])[address] [address]#### CANTGN ####[facility] ([id number])[address] [place] [address] 60277 Monocytes (Bld) [#/Vol] 0.8 10*3/uL Normal 0-0.9 [facility] Comment on above: Performed By: #### Renita CUEVAS, 6875-9, CBCA ####[facility] ([id number])[address] [address]#### CANTGN ####[facility] ([id number])[address] [place] [address] 17549 Monocytes/100 WBC (Bld) 10.5 % Normal [facility] Comment on above: Performed By: #### Renita CUEVAS, 6875-9, CBCA ####[facility] ([id number])[address] [address]#### CANTGN ####[facility] ([id number])[address] [place] [address] 87622 Neutrophils/100 WBC (Bld) 67.2 % Normal [facility] Comment on above: Performed By: #### Renita CUEVAS, 6875-9, CBCA ####[facility] ([id number])0 [facility], [address] [address]#### CANTGN ####[facility] ([id number])[address] [place] [address] 44039 Platelet mean volume (Bld) [Entitic vol] 8.5 fL Normal 7-12 [facility] Comment on above: Performed By: #### Renita CUEVAS, 6875-9, CBCA ####[facility] ([id number])[address] [address]#### CANTGN ####[facility] ([id number])[address] [place] [address] 38732 Platelets (Bld) [#/Vol] 333 10*3/uL Normal 150-450 [facility] Comment on above: Performed By: #### Renita CUEVAS, 6875-9, CBCA ####[facility] ([id number])[address] [address]#### CANTGN ####[facility] ([id number])[address] [place] [address] 81202 RBC COUNT 3.50 X10E12/L Low 3.80-5.20 [facility] Comment on above: Performed By: #### Renita CUEVAS, 6875-9, CBCA ####[facility] ([id number])[address] [address]#### CANTGN ####[facility] ([id number])[address] [place] [address] 95081 WBC (Bld) [#/Vol] 7.3 10*3/uL Normal 4.0-11.0 [facility] Comment on above: Performed By: #### Renita CUEVAS, 6875-9, CBCA ####[facility] ([id number])0 [facility], [address] [address]#### CANTGN ####[facility] ([id number])[address] [place] [address] 59213 COMPREHENSIVE METABOLIC PANE Dickson 01-22-2025 Albumin [Mass/Vol] 3.9 g/dL Normal 3.2-5.3 [facility] Comment on above: Performed By: #### Renita CUEVAS 6875-9, CBCA ####[facility] ([id number])[address] [address]#### CANTGN ####[facility] ([id number])[address] [place] [address] 50273 ALP [Catalytic activity/Vol] 102 U/L Normal 39-130 [facility] Comment on above: Performed By: #### Renita CUEVAS 6875-9, CBCA ####[facility] ([id number])[address] [address]#### CANTGN ####[facility] ([id number])[address] [place] [address] 33506 ALT [Catalytic activity/Vol] 16 U/L Normal 0-31 [facility] Comment on above: Performed By: #### Renita CUEVAS 6875-9, CBCA ####[facility] ([id number])[address] [address]#### CANTGN ####[facility] ([id number])[address] [place] [address] 76016 Anion gap [Moles/Vol] 11 mmol/L Normal 5-15 [facility] Comment on above: Performed By: #### Renita CUEVAS, 6875-9, CBCA ####[facility] ([id number])[address], [address] [place] [address]#### CANTGN ####[facility] ([id number])[address] [place] [address] 66401 AST [Catalytic activity/Vol] 18 U/L Normal 0-41 [facility] Comment on above: Performed By: #### C FAITH, 6875-9, CBCA ####[facility] ([id number])0 [facility], [address] [place] [address]#### CANTGN ####[facility] ([id number])[address] [place] [address] 75393 Bilirubin [Mass/Vol] 0.5 mg/dL Normal 0.3-1.2 [facility] Comment on above: Performed By: #### Renita CUEVAS, 6875-9, CBCA ####[facility] ([id number])0 [facility], [address] [place] [address]#### CANTGN ####[facility] ([id number])[address] [place] [address] 85928 Calcium [Mass/Vol] 9.6 mg/dL Normal 8.5-10.5 [facility] Comment on above: Performed By: #### Renita CUEVAS, 6875-9, CBCA ####[facility] ([id number])0 [address], [address] [place] [address]#### CANTGN ####[facility] ([id number])[address] [place] [address] 97372 Chloride [Moles/Vol] 96 mmol/L Low 98-109 [facility] Comment on above: Performed By: #### Renita CUEVAS, 6875-9, CBCA ####[facility] ([id number])[address] [address]#### CANTGN ####[facility] ([id number])[address] [place] [address] 66564 CO2 [Moles/Vol] 27 mmol/L Normal 22-32 [facility] Comment on above: Performed By: #### C FAITH, 6875-9, CBCA ####[facility] ([id number])[address] [address]#### CANTGN ####[facility] ([id number])[address] [place] [address] 43558 Creatinine [Mass/Vol] 1.75 mg/dL High 0.40-1.00 [facility] Comment on above: Result Comment: METH OD TRACEABLE TO IDMS STANDARD Performed By: #### C FAITH, 6875-9, CBCA ####[facility] ([id number])[address] [address]#### CANTGN ####[facility] ([id number])[address] [place] [address] 71152 GFR/1.73 sq M.predicted among non-blacks MDRD (S/P/Bld) [Vol rate/Area] 29 mL/min/{1.73_m2} Low >59 [facility] Comment on above: Result Comment: Repo rted eGFR is based on theCKD-EPI 2020 equation that doesnot use a race coefficient. Performed By: #### Renita CUEVAS, 6875-9, CBCA ####[facility] ([id number])[address] [address]#### CANTGN ####[facility] ([id number])[address] [place] [address] 55507 Glucose [Mass/Vol] 291 mg/dL High 65-99 [facility] Comment on above: Performed By: #### C FAITH, 6875-9, CBCA ####[facility] ([id number])[address] [address]#### CANTGN ####[facility] ([id number])[address] [place] [address] 25806 Potassium [Moles/Vol] 5.1 mmol/L High 3.5-5.0 [facility] Comment on above: Performed By: #### C FAITH, 6875-9, CBCA ####[facility] ([id number])[address] [address]#### CANTGN ####[facility] ([id number])[address] [place] [address] 48478 Protein [Mass/Vol] 7.7 g/dL Normal 6.0-8.0 [facility] Comment on above: Performed By: #### Renita CUEVAS, 6875-9, CBCA ####[facility] ([id number])[address] [place] [address]#### CANTGN ####[facility] ([id number])[address] [place] [address] 61695 Sodium [Moles/Vol] 134 mmol/L Normal 134-146 [facility] Comment on above: Performed By: #### Renita CUEVAS, 6875-9, CBCA ####[facility] ([id number])[address] [place] [address]#### CANTGN ####[facility] ([id number])[address] [place] [address] 49466 Urea nitrogen [Mass/Vol] 31 mg/dL High 5-27 [facility] Comment on above: Performed By: #### C FAITH, 6875-9, CBCA ####[facility] ([id number])2130 [facility], [address] [place] [address]#### CANTGN ####[facility] ([id number])[address] [place] [address] 84557 Cancer Ag 15-3 Qnon 01-23-20 25 CA 15 3 13.6 U/mL Normal 0.0-31.3 [facility] Comment on above: Result Comment: The method used for this test is Whimseybox DXI chemiluminescent immunoassay.Values obtained by different assay methodscannot be used interchangeably. Performed By: #### C FAITH, 6875-9, CBCA ####[facility] ([id number])2130 [facility], [address] [place] [address]#### CANTGN ####[facility] ([id number])[address] [place] [address] 42376 CBC AND AUTO DIFFon 01-10-20 25 ABSOLUTE BASOPHIL 0.0 X10E9/L Normal 0.0-0.2 [facility] Comment on above: Performed By: #### Renita HENSON, 3040-3, CMP ####[facility] ([id number])[address] [place] [address]59 ABSOLUTE NEUTROPHIL 5.7 X10E9/L Normal 1.5-6.6 [facility] Comment on above: Performed By: #### Renita HENSON, 3040-3, CMP ####[facility] ([id number])[address] [place] [address] 49807 Basophils/100 WBC (Bld) 0.4 % Normal [facility] Comment on above: Performed By: #### Renita HENSON, 3040-3, CMP ####[facility] ([id number])[address] [place] [address] 92588 Eosinophils (Bld) [#/Vol] 0.0 10*3/uL Normal 0.0-0.4 [facility] Comment on above: Performed By: #### Renita HENSON, 3040-01, CMP ####[facility] ([id number])[address] [place] [address] 67928 Eosinophils/100 WBC (Bld) 0.4 % Normal [facility] Comment on above: Performed By: #### Renita HENSON, 3040-01, CMP ####[facility] ([id number])[address] [place] [address] 07497 Erythrocyte distribution width (RBC) [Ratio] 16.0 % High 11.5-15.0 [facility] Comment on above: Performed By: #### Renita HENSON, 3040-01, CMP ####[facility] ([id number])[address] [place] [address] 39129 Hematocrit (Bld) [Volume fraction] 33.3 % Low 35-47 [facility] Comment on above: Performed By: #### Renita HENSON, 3040-01, CMP ####[facility] ([id number])[address] [place] [address] 59757 Hemoglobin (Bld) [Mass/Vol] 11.0 g/dL Low 11.7-15.5 [facility] Comment on above: Performed By: #### Renita HENSON, 3040-01, CMP ####[facility] ([id number])[address] [place] [address] 76275 Lymphocytes (Bld) [#/Vol] 1.2 10*3/uL Normal 1.0-3.5 [facility] Comment on above: Performed By: #### Renita HENSON, 3040-01, CMP ####[facility] ([id number])[address] [place] [address] 52105 Lymphocytes/100 WBC (Bld) 16.3 % Normal [facility] Comment on above: Performed By: #### Renita HENSON, 3040-01, CMP ####[facility] ([id number])[address] [place] [address] 46764 MCH (RBC) [Entitic mass] 27.5 pg Normal 27-34 [facility] Comment on above: Performed By: #### Renita HENSON, 3040-01, CMP ####[facility] ([id number])[address] [place] [address] 46939 MCHC (RBC) [Mass/Vol] 33.0 g/dL Normal 32-36 [facility] Comment on above: Performed By: #### Renita HENSON, 3040-01, CMP ####[facility] ([id number])[address] [place] [address] 56293 MCV (RBC) [Entitic vol] 83 fL Normal 80-100 [facility] Comment on above: Performed By: #### Renita HENSON, 3040-01, CMP ####[facility] ([id number])[address] [place] [address] 97111 Monocytes (Bld) [#/Vol] 0.5 10*3/uL Normal 0-0.9 [facility] Comment on above: Performed By: #### Renita HENSON, 3040-01, CMP ####[facility] ([id number])[address] [place] [address] 13483 Monocytes/100 WBC (Bld) 6.2 % Normal [facility] Comment on above: Performed By: #### Renita HENSON, 3040-01, CMP ####[facility] ([id number])[address] [place] [address] 35617 Neutrophils/100 WBC (Bld) 76.7 % Normal [facility] Comment on above: Performed By: #### Renita HENSON, 3040-01, CMP ####[facility] ([id number])[address] [place] [address], [place] [address] Platelet mean volume (Bld) [Entitic vol] 7.6 fL Normal 7-12 [facility] Comment on above: Performed By: #### Renita HENSON, 3039-3, CMP ####[facility] ([id number])[address] [place] [address] 68154 Platelets (Bld) [#/Vol] 309 10*3/uL Normal 150-450 [facility] Comment on above: Performed By: #### Renita HENSON, 3, CMP ####[facility] ([id number])[address] [place] [address] 35661 RBC COUNT 4.00 X10E12/L Normal 3.80-5.20 [facility] Comment on above: Performed By: #### Renita HENSON, 3, CMP ####[facility] ([id number])[address] [place] [address] 86908 WBC (Bld) [#/Vol] 7.5 10*3/uL Normal 4.0-11.0 [facility] Comment on above: Performed By: #### Renita HENSON, 3, CMP ####[facility] ([id number])[address] [place] [address] 40080 COMPREHENSIVE METABOLIC PANE [facility] 01-10-2025 Albumin [Mass/Vol] 3.9 g/dL Normal 3.2-5.3 [facility] Comment on above: Performed By: #### Renita HENSON, 3039-3, CMP ####[facility] ([id number])[address] [place] [address] 59199 ALP [Catalytic activity/Vol] 110 U/L Normal 39-130 [facility] Comment on above: Performed By: #### Renita HENSON, 3039-3, CMP ####[facility] ([id number])[address], [place] [address] ALT [Catalytic activity/Vol] 21 U/L Normal 0-31 [facility] Comment on above: Performed By: #### Renita HENSON, 3040-01, CMP ####[facility] ([id number])[address] [place] [address], [place] [address] Anion gap [Moles/Vol] 12 mmol/L Normal 5-15 [facility] Comment on above: Performed By: #### Renita HENSON, 3040-01, CMP ####[facility] ([id number])[address] [place] [address] [place] [address] AST [Catalytic activity/Vol] 32 U/L Normal 0-41 [facility] Comment on above: Performed By: #### Renita HENSON, 3040-01, CMP ####[facility] ([id number])[address] [place] [address] [place] [address] Bilirubin [Mass/Vol] 0.6 mg/dL Normal 0.3-1.2 [facility] Comment on above: Performed By: #### Renita HENSON, 3040-01, CMP ####[facility] ([id number])[address] [place] [address], [place] [address] Calcium [Mass/Vol] 9.4 mg/dL Normal 8.5-10.5 [facility] Comment on above: Performed By: #### Renita HENSON, 3040-01, CMP ####[facility] ([id number])[address] [place] [address] [place] [address] Chloride [Moles/Vol] 98 mmol/L Normal 98-109 [facility] Comment on above: Performed By: #### Renita HENSON, 3040-01, CMP ####[facility] ([id number])[address] [place] [address] [place] [address] CO2 [Moles/Vol] 25 mmol/L Normal 22-32 [facility] Comment on above: Performed By: #### Renita HENSON, 3040-01, CMP ####[facility] ([id number])[address] [place] [address] 44359 Creatinine [Mass/Vol] 1.32 mg/dL High 0.40-1.00 [facility] Comment on above: Result Comment: METH OD TRACEABLE TO IDMS STANDARD Performed By: #### C NATIVIDAD, 3040-01, CMP ####[facility] ([id number])[address] [place] [address] 62852 GFR/1.73 sq M.predicted among non-blacks MDRD (S/P/Bld) [Vol rate/Area] 41 mL/min/{1.73_m2} Low >59 [facility] Comment on above: Result Comment: Repo rted eGFR is based on theCKD-EPI 2020 equation that doesnot use a race coefficient. Performed By: #### C NATIVIDAD, 3040-01, CMP ####[facility] ([id number])[address] [place] [address] 03484 Glucose [Mass/Vol] 130 mg/dL High 65-99 [facility] Comment on above: Performed By: #### C NAITVIDAD, 3040-01, CMP ####[facility] ([id number])[address] [place] [address] 93109 Potassium [Moles/Vol] 4.6 mmol/L Normal 3.5-5.0 [facility] Comment on above: Performed By: #### C NATIVIDAD, 3040-01, CMP ####[facility] ([id number])[address] [place] [address] 32020 Protein [Mass/Vol] 8.4 g/dL High 6.0-8.0 [facility] Comment on above: Performed By: #### C NATIVIDAD, 3040-01, CMP ####[facility] ([id number])[address] [place] [address] 48681 Sodium [Moles/Vol] 135 mmol/L Normal 134-146 [facility] Comment on above: Performed By: #### C NATIVIDAD, 3040-3, CMP ####[facility] ([id number])[address] [place] [address] 67701 Urea nitrogen [Mass/Vol] 26 mg/dL Normal 5-27 [facility] Comment on above: Performed By: #### C NATIVIDAD, 3040-3, CMP ####[facility] ([id number])[address] [place] [address] ABDOMEN AND PELVIS W CONT on 01-10-2025 CT ABDOMEN AND PELVIS W CONT Normal [facility] LIPASEon 01-10-2025 Lipase [Catalytic activity/Vol] 27 U/L Normal 17-40 [facility] Comment on above: Performed By: #### C NATIVIDAD, 3040-3, CMP ####[facility] ([id number])[address] [place] [address] 17922 URINE CULTUREon 01-10-2025 Bacteria identified Cx Nom (U) CULTURE RESULTS >100,000 ORGANISMS/ML NORMAL UROGENITAL BAILEY Normal [facility] Comment on above: Performed By: #### 6 30-4 ####[facility] ([id number])2130 [facility], [address] [place] [address] URN MACROSCOPIC NURon 2024 BILIRUBIN MARYJO Negative Normal NEG [facility] Comment on above: Performed By: #### N UM ####[facility] ([id number])[address] [place] [address] 41462 BLOOD/HGB MARYJO MODERATE Abnormal NEG [facility] Comment on above: Performed By: #### N UM ####[facility] ([id number])[address] [place] [address] 47485 GLUCOSE MARYJO Negative Normal NEG [facility] Comment on above: Performed By: #### N UM ####[facility] ([id number])[address] [place] [address] [place] [address] KETONES MARYJO Negative Normal NEG [facility] Comment on above: Performed By: #### N UM ####[facility] ([id number])[address] [place] [address] [place] [address] LEUKOCYTE ESTERASE MARYJO Trace Abnormal NEG [facility] Comment on above: Performed By: #### N UM ####[facility] ([id number])[address] [place] [address] [place] [address] NITRITE MARYJO Positive Abnormal NEG [facility] Comment on above: Performed By: #### N UM ####[facility] ([id number])[address] [place] [address] 48551 PH MARYJO 5.5 Normal 5.0-8.5 [facility] Comment on above: Performed By: #### N UM ####[facility] ([id number])[address] [place] [address] 02051 PROTEIN MARYJO 100 mg/dL Abnormal NEG [facility] Comment on above: Performed By: #### N UM ####[facility] ([id number])[address] [place] [address] [place] [address] SPECIFIC GRAVITY MARYJO >=1.030 Normal 1.003-1.[address] [place] [address] Comment on above: Performed By: #### N UM ####[facility] ([id number])[address] [place] [address] [place] [address] UROBILINOGEN MARYJO 0.2 eu/dL Normal <1.1 [facility] Comment on above: Performed By: #### N UM ####[facility] ([id number])[address] [place] [address] [place] [address] CBC AND AUTO DIFFon 01-03-20 25 ABSOLUTE BASOPHIL 0.0 X10E9/L Normal 0.0-0.2 [facility] Comment on above: Performed By: #### 2 639-3, 09798-3, 2157-04, CBCA, PINR, CMP ####[facility] ([id number])[address] [place] [address] 87547 ABSOLUTE NEUTROPHIL 5.7 X10E9/L Normal 1.5-6.6 [facility] Comment on above: Performed By: #### 2 639-3, 58651-1, 2157-04, CBCA, PINR, CMP ####[facility] ([id number])[address] [place] [address] 46626 Basophils/100 WBC (Bld) 0.3 % Normal [facility] Comment on above: Performed By: #### 2 639-3, 75160-7, 2157-04, CBCA, PINR, CMP ####[facility] ([id number])[address] [place] [address] 16068 Eosinophils (Bld) [#/Vol] 0.1 10*3/uL Normal 0.0-0.4 [facility] Comment on above: Performed By: #### 2 639-3, 74533-9, 2157-04, CBCA, PINR, CMP ####[facility] ([id number])[address] [place] [address] 09650 Eosinophils/100 WBC (Bld) 0.8 % Normal [facility] Comment on above: Performed By: #### 2 639-3, 82336-7, 2157-04, CBCA, PINR, CMP ####[facility] ([id number])[address] [place] [address] 47643 Erythrocyte distribution width (RBC) [Ratio] 16.0 % High 11.5-15.0 [facility] Comment on above: Performed By: #### 2 639-3, 07718-6, 2157-04, CBCA, PINR, CMP ####[facility] ([id number])[address] [place] [address] 14610 Hematocrit (Bld) [Volume fraction] 33.4 % Low 35-47 [facility] Comment on above: Performed By: #### 2 639-3, 65299-8, 2157-04, CBCA, PINR, CMP ####[facility] ([id number])[address] [place] [address] 29663 Hemoglobin (Bld) [Mass/Vol] 11.0 g/dL Low 11.7-15.5 [facility] Comment on above: Performed By: #### 2 639-3, 36684-6, 2157-04, CBCA, PINR, CMP ####[facility] ([id number])[address] [place] [address] 40875 Lymphocytes (Bld) [#/Vol] 1.2 10*3/uL Normal 1.0-3.5 [facility] Comment on above: Performed By: #### 2 639-3, 77185-4, 2157-04, CBCA, PINR, CMP ####[facility] ([id number])[address] [place] [address] 09187 Lymphocytes/100 WBC (Bld) 15.7 % Normal [facility] Comment on above: Performed By: #### 2 639-3, 43477-4, 2157-04, CBCA, PINR, CMP ####[facility] ([id number])[address] [place] [address] 37180 MCH (RBC) [Entitic mass] 27.4 pg Normal 27-34 [facility] Comment on above: Performed By: #### 2 639-3, 08309-1, 2157-04, CBCA, PINR, CMP ####[facility] ([id number])[address] [place] [address] 50968 MCHC (RBC) [Mass/Vol] 32.8 g/dL Normal 32-36 [facility] Comment on above: Performed By: #### 2 639-3, 87634-4, 2157-04, CBCA, PINR, CMP ####[facility] ([id number])[address] [place] [address] 04611 MCV (RBC) [Entitic vol] 83 fL Normal 80-100 [facility] Comment on above: Performed By: #### 2 639-3, 39503-9, 2157-04, CBCA, PINR, CMP ####[facility] ([id number])[address] [place] [address] 36575 Monocytes (Bld) [#/Vol] 0.7 10*3/uL Normal 0-0.9 [facility] Comment on above: Performed By: #### 2 639-3, 80091-3, 2157-04, CBCA, PINR, CMP ####[facility] ([id number])[address] [place] [address] 59170 Monocytes/100 WBC (Bld) 8.9 % Normal [facility] Comment on above: Performed By: #### 2 639-3, 39848-2, 2157-04, CBCA, PINR, CMP ####[facility] ([id number])[address] [place] [address] 90805 Neutrophils/100 WBC (Bld) 74.3 % Normal [facility] Comment on above: Performed By: #### 2 639-3, 12050-3, 2157-04, CBCA, PINR, CMP ####[facility] ([id number])[address] [place] [address] 88567 Platelet mean volume (Bld) [Entitic vol] 8.1 fL Normal 7-12 [facility] Comment on above: Performed By: #### 2 639-3, 12396-4, 2157-04, CBCA, PINR, CMP ####[facility] ([id number])[address] [place] [address] 37538 Platelets (Bld) [#/Vol] 295 10*3/uL Normal 150-450 [facility] Comment on above: Performed By: #### 2 639-3, 84053-7, 2157-04, CBCA, PINR, CMP ####[facility] ([id number])[address] [place] [address] 97924 RBC COUNT 4.01 X10E12/L Normal 3.80-5.20 [facility] Comment on above: Performed By: #### 2 639-3, 78699-3, 2157-04, CBCA, PINR, CMP ####[facility] ([id number])[address] [place] [address] 63014 WBC (Bld) [#/Vol] 7.7 10*3/uL Normal 4.0-11.0 [facility] Comment on above: Performed By: #### 2 639-3, 58120-6, 2157-04, CBCA, PINR, CMP ####[facility] ([id number])[address] [place] [address] 29231 CK [Catalytic activity/Vol]o n 01-03-2025 CPK 66 U/L Normal 24-170 [facility] Comment on above: Performed By: #### 2 639-3, 35559-9, 2157-04, CBCA, PINR, CMP ####[facility] ([id number])[address] [place] [address] 75416 COMPREHENSIVE METABOLIC PANE Dickson 01-03-2025 Albumin [Mass/Vol] 3.8 g/dL Normal 3.2-5.3 [facility] Comment on above: Performed By: #### 2 639-3, 71489-7, 2157-04, CBCA, PINR, CMP ####[facility] ([id number])[address] [place] [address] 35844 ALP [Catalytic activity/Vol] 110 U/L Normal 39-130 [facility] Comment on above: Performed By: #### 2 639-3, 80616-3, 2157-04, CBCA, PINR, CMP ####[facility] ([id number])[address] [place] [address] 52305 ALT [Catalytic activity/Vol] 13 U/L Normal 0-31 [facility] Comment on above: Performed By: #### 2 639-3, 43686-5, 2157-04, CBCA, PINR, CMP ####[facility] ([id number])[address] [place] [address] 88302 Anion gap [Moles/Vol] 11 mmol/L Normal 5-15 [facility] Comment on above: Performed By: #### 2 639-3, 52188-6, 2157-04, CBCA, PINR, CMP ####[facility] ([id number])[address] [place] [address] 47279 AST [Catalytic activity/Vol] 24 U/L Normal 0-41 [facility] Comment on above: Performed By: #### 2 639-3, 10350-8, 2157-04, CBCA, PINR, CMP ####[facility] ([id number])[address] [place] [address] 60166 Bilirubin [Mass/Vol] 0.4 mg/dL Normal 0.3-1.2 [facility] Comment on above: Performed By: #### 2 639-3, 38945-4, 2157-04, CBCA, PINR, CMP ####[facility] ([id number])[address] [place] [address] 18501 Calcium [Mass/Vol] 9.3 mg/dL Normal 8.5-10.5 [facility] Comment on above: Performed By: #### 2 639-3, 95901-9, 2157-04, CBCA, PINR, CMP ####[facility] ([id number])[address] [place] [address] 63645 Chloride [Moles/Vol] 101 mmol/L Normal 98-109 [facility] Comment on above: Performed By: #### 2 639-3, 62385-5, 2157-04, CBCA, PINR, CMP ####[facility] ([id number])[address] [place] [address] 75421 CO2 [Moles/Vol] 27 mmol/L Normal 22-32 [facility] Comment on above: Performed By: #### 2 639-3, 72362-2, 2157-04, CBCA, PINR, CMP ####[facility] ([id number])[address] [place] [address] 20883 Creatinine [Mass/Vol] 1.25 mg/dL High 0.40-1.00 [facility] Comment on above: Result Comment: METH OD TRACEABLE TO IDMS STANDARD Performed By: #### 2 639-3, 76283-3, 2157-04, CBCA, PINR, CMP ####[facility] ([id number])[address] [place] [address] 91685 GFR/1.73 sq M.predicted among non-blacks MDRD (S/P/Bld) [Vol rate/Area] 44 mL/min/{1.73_m2} Low >59 [facility] Comment on above: Result Comment: Repo rted eGFR is based on theCKD-EPI 2020 equation that doesnot use a race coefficient. Performed By: #### 2 639-3, 84237-2, 2157-04, CBCA, PINR, CMP ####[facility] ([id number])[address] [place] [address] 56999 Glucose [Mass/Vol] 48 mg/dL Critically low 65-99 [facility] Comment on above: Performed By: #### 2 639-3, 10756-9, 2157-04, CBCA, PINR, CMP ####[facility] ([id number])[address] [place] [address] 17473 Potassium [Moles/Vol] 3.9 mmol/L Normal 3.5-5.0 [facility] Comment on above: Performed By: #### 2 639-3, 53117-4, 2157-04, CBCA, PINR, CMP ####[facility] ([id number])[address] [place] [address] 15395 Protein [Mass/Vol] 7.9 g/dL Normal 6.0-8.0 [facility] Comment on above: Performed By: #### 2 639-3, 78829-6, 2157-04, CBCA, PINR, CMP ####[facility] ([id number])[address] [place] [address] 06798 Sodium [Moles/Vol] 139 mmol/L Normal 134-146 [facility] Comment on above: Performed By: #### 2 639-3, 23556-5, 2157-04, CBCA, PINR, CMP ####[facility] ([id number])[address] [place] [address] 33847 Urea nitrogen [Mass/Vol] 18 mg/dL Normal 5-27 [facility] Comment on above: Performed By: #### 2 639-3, 62930-8, 2157-04, CBCA, PINR, CMP ####[facility] ([id number])[address] [place] [address], [place] [address] [address]RA[address] WO CONTon CT BRAIN WO CONT Normal [facility] CT CERVICAL SPINE WO CONTon 01-03-2025 CT CERVICAL SPINE WO CONT Normal [facility] Glucose Glucometer (BldC) [M ass/Vol]on 01-03-2025 Glucose [Mass/Vol] 231 mg/dL High 65-99 [facility] Glucose [Mass/Vol] 196 mg/dL High 65-99 [facility] Glucose [Mass/Vol] 66 mg/dL Normal 65-99 [facility] Glucose [Mass/Vol] 72 mg/dL Normal 65-99 [facility] Glucose [Mass/Vol] 86 mg/dL Normal 65-99 [facility] Glucose [Mass/Vol] 49 mg/dL Critically low 65-99 [facility] Myoglobin [Mass/Vol]on 01-03 SERUM MYOGLOBIN 67.6 ng/mL High 14.3-65.8 [facility] Comment on above: Performed By: #### 2 639-3, 91377-1, 2157-6, CBCA, PINR, CMP ####[facility] ([id number])[address] [place] [address] 02389 PROTIME AND INRon 01-03-2025 INR Coag (PPP) [Relative time] 1.0 {INR} Normal 0.8-1.1 [facility] Comment on above: Performed By: #### 2 639-3, 44364-8, 2157-6, CBCA, PINR, CMP ####[facility] ([id number])[address] [place] [address] 18694 PT Coag (PPP) [Time] 12.1 s Normal 9.8-13.2 [facility] Comment on above: Result Comment: NEW REFERENCE RANGE Performed By: #### 2 639-3, 51915-6, 2157-6, CBCA, PINR, CMP ####[facility] ([id number])[address] [place] [address], [place] [address] Troponin I.cardiac High sens itivity method [Mass/Vol]on 01-03-2025 1 HOUR TROP I, HIGH SENSITIVITY 15 ng/L Normal <16 [facility] Comment on above: Performed By: #### 8 9579-7 ####[facility] ([id number])[address] [place] [address], [place] [address] TROPONIN I, HIGH SENSITIVITY 11 ng/L Normal <16 [facility] Comment on above: Performed By: #### 2 639-3, 02418-1, 2157-6, CBCA, PINR, CMP ####[facility] ([id number])[address] [place] [address], [place] [address] URN MACROSCOPIC NURon 2024 BILIRUBIN MARYJO Negative Normal NEG [facility] Comment on above: Performed By: #### N UM ####[facility] ([id number])[address] [place] [address], [place] [address] BLOOD/HGB MARYJO Trace Abnormal NEG [facility] Comment on above: Performed By: #### N UM ####[facility] ([id number])[address] [place] [address], [place] [address] GLUCOSE MARYJO 100 mg/dL Abnormal NEG [facility] Comment on above: Performed By: #### N UM ####[facility] ([id number])[address] [place] [address], [place] [address] KETONES MARYJO Negative Normal NEG [facility] Comment on above: Performed By: #### N UM ####[facility] ([id number])[address] [place] [address], [place] [address] LEUKOCYTE ESTERASE MARYJO Small Abnormal NEG [facility] Comment on above: Performed By: #### N UM ####[facility] ([id number])[address] [place] [address] 84933 NITRITE MARYJO Negative Normal NEG [facility] Comment on above: Performed By: #### N UM ####[facility] ([id number])[address] [place] [address] 77756 PH MARYJO 6.0 Normal 5.0-8.5 [facility] Comment on above: Performed By: #### N UM ####[facility] ([id number])[address] [place] [address] 32368 PROTEIN MARYJO 30 mg/dL Abnormal NEG [facility] Comment on above: Performed By: #### N UM ####[facility] ([id number])[address] [place] [address] 83964 SPECIFIC GRAVITY MARYJO 1.025 Normal 1.003-1.03 5 [facility] Comment on above: Performed By: #### N UM ####[facility] ([id number])[address] [place] [address] 76131 UROBILINOGEN MARYJO 0.2 eu/dL Normal <1.1 [facility] Comment on above: Performed By: #### N UM ####[facility] ([id number])[address] [place] [address] 25567 CBC AND AUTO DIFFon 01-20-20 25 ABSOLUTE BASOPHIL 0.0 X10E9/L Normal 0.0-0.2 [facility] Comment on above: Performed By: #### C MP, CBCA, HA1C, 91147-1 ####[facility] ([id number])[address] [facility], [address] [place] [address] ABSOLUTE NEUTROPHIL 3.3 X10E9/L Normal 1.5-6.6 [facility] Comment on above: Performed By: #### C MP, CBCA, HA1C, 60920-1 ####[facility] ([id number])[address] [facility], [address] [address] Basophils/100 WBC (Bld) 0.7 % Normal [facility] Comment on above: Performed By: #### C MP, CBCA, HA1C, 54731-6 ####[facility] ([id number])[address] [address] [address] Eosinophils (Bld) [#/Vol] 0.2 10*3/uL Normal 0.0-0.4 [facility] Comment on above: Performed By: #### C MP, CBCA, HA1C, 46579-4 ####[facility] ([id number])[address], [address] [address] Eosinophils/100 WBC (Bld) 3.9 % Normal [facility] Comment on above: Performed By: #### C MP, CBCA, HA1C, 00749-0 ####[facility] ([id number])[address] [address], [place] [address] Erythrocyte distribution width (RBC) [Ratio] 15.7 % High 11.5-15.0 [facility] Comment on above: Performed By: #### C MP, CBCA, HA1C, 71729-9 ####[facility] ([id number])[address] [address] [address] Hematocrit (Bld) [Volume fraction] 32.2 % Low 35-47 [facility] Comment on above: Performed By: #### C MP, CBCA, HA1C, 38227-2 ####[facility] ([id number])[address] [address] [address] Hemoglobin (Bld) [Mass/Vol] 10.4 g/dL Low 11.7-15.5 [facility] Comment on above: Performed By: #### C MP, CBCA, HA1C, 52388-1 ####[facility] ([id number])[address], [address] [place] [address] Lymphocytes (Bld) [#/Vol] 1.5 10*3/uL Normal 1.0-3.5 [facility] Comment on above: Performed By: #### C MP, CBCA, HA1C, 99288-5 ####[facility] ([id number])[address] [address] Lymphocytes/100 WBC (Bld) 26.6 % Normal [facility] Comment on above: Performed By: #### C MP, CBCA, HA1C, 46976-2 ####[facility] ([id number])[address] [address] MCH (RBC) [Entitic mass] 27.9 pg Normal 27-34 [facility] Comment on above: Performed By: #### C MP, CBCA, HA1C, 05215-8 ####[facility] ([id number])[address] [address] [place] [address] MCHC (RBC) [Mass/Vol] 32.2 g/dL Normal 32-36 [facility] Comment on above: Performed By: #### C MP, CBCA, HA1C, 01997-5 ####[facility] ([id number])[address] [address] MCV (RBC) [Entitic vol] 86 fL Normal 80-100 [facility] Comment on above: Performed By: #### C MP, CBCA, HA1C, 55876-3 ####[facility] ([id number])[address] [address] Monocytes (Bld) [#/Vol] 0.5 10*3/uL Normal 0-0.9 [facility] Comment on above: Performed By: #### C MP, CBCA, HA1C, 70463-3 ####[facility] ([id number])[address] [address] [address] Monocytes/100 WBC (Bld) 9.4 % Normal [facility] Comment on above: Performed By: #### C MP, CBCA, HA1C, 47412-9 ####[facility] ([id number])[address] [address] [address] Neutrophils/100 WBC (Bld) 59.4 % Normal [facility] Comment on above: Performed By: #### C MP, CBCA, HA1C, 76065-0 ####[facility] ([id number])[address] [address] [address] Platelet mean volume (Bld) [Entitic vol] 8.9 fL Normal 7-12 [facility] Comment on above: Performed By: #### C MP, CBCA, HA1C, 17577-3 ####[facility] ([id number])[address] [address] [address] Platelets (Bld) [#/Vol] 266 10*3/uL Normal 150-450 [facility] Comment on above: Performed By: #### C MP, CBCA, HA1C, 32927-1 ####[facility] ([id number])[address] [address], [place] [address] RBC COUNT 3.72 X10E12/L Low 3.80-5.20 [facility] Comment on above: Performed By: #### C MP, CBCA, HA1C, 76146-3 ####[facility] ([id number])[address] [address], [place] [address] WBC (Bld) [#/Vol] 5.6 10*3/uL Normal 4.0-11.0 [facility] Comment on above: Performed By: #### C MP, CBCA, HA1C, 00324-8 ####[facility] ([id number])[address], [address], [place] [address] COMPREHENSIVE METABOLIC PANE Dickson 12-04-2024 Albumin [Mass/Vol] 3.7 g/dL Normal 3.2-5.3 [facility] Comment on above: Performed By: #### C MP, CBCA, HA1C, 01351-2 ####[facility] ([id number])[address], [address], [place] [address] ALP [Catalytic activity/Vol] 84 U/L Normal 39-130 [facility] Comment on above: Performed By: #### C MP, CBCA, HA1C, 37803-9 ####[facility] ([id number])[address], [address], [place] [address] ALT [Catalytic activity/Vol] 11 U/L Normal 0-31 [facility] Comment on above: Performed By: #### C MP, CBCA, HA1C, 30066-7 ####[facility] ([id number])[address], [address], [place] [address] Anion gap [Moles/Vol] 7 mmol/L Normal 5-15 [facility] Comment on above: Performed By: #### C MP, CBCA, HA1C, 23323-3 ####[facility] ([id number])[address], [address], [place] [address] AST [Catalytic activity/Vol] 25 U/L Normal 0-41 [facility] Comment on above: Performed By: #### C MP, CBCA, HA1C, 74207-2 ####[facility] ([id number])[address], [address], [place] [address] Bilirubin [Mass/Vol] 0.3 mg/dL Normal 0.3-1.2 [facility] Comment on above: Performed By: #### C MP, CBCA, HA1C, 70673-1 ####[facility] ([id number])[address] [address] [address] Calcium [Mass/Vol] 9.0 mg/dL Normal 8.5-10.5 [facility] Comment on above: Performed By: #### C FAITH, CBCA, HA1C, 71134-7 ####[facility] ([id number])[address] [address] [address] Chloride [Moles/Vol] 103 mmol/L Normal 98-109 [facility] Comment on above: Performed By: #### C FAITH, CBCA, HA1C, 57972-4 ####[facility] ([id number])[address] [address] [address] CO2 [Moles/Vol] 28 mmol/L Normal 22-32 [facility] Comment on above: Performed By: #### C FAITH, CBCA, HA1C, 19535-6 ####[facility] ([id number])[address] [address] [place] [address] Creatinine [Mass/Vol] 1.40 mg/dL High 0.40-1.00 [facility] Comment on above: Result Comment: METH OD TRACEABLE TO IDMS STANDARD Performed By: #### C FAITH, CBCA, HA1C, 52727-0 ####[facility] ([id number])[address] [address] GFR/1.73 sq M.predicted among non-blacks MDRD (S/P/Bld) [Vol rate/Area] 39 mL/min/{1.73_m2} Low >59 [facility] Comment on above: Result Comment: Repo rted eGFR is based on theCKD-EPI 2020 equation that doesnot use a race coefficient. Performed By: #### C FAITH, CBCA, HA1C, 89158-3 ####[facility] ([id number])[address], [place] [address] Glucose [Mass/Vol] 201 mg/dL High 65-99 [facility] Comment on above: Performed By: #### C FAITH, CBCA, HA1C, 11331-5 ####[facility] ([id number])[address], [place] [address] Potassium [Moles/Vol] 5.5 mmol/L High 3.5-5.0 [facility] Comment on above: Performed By: #### C FAITH, CBCA, HA1C, 67247-5 ####[facility] ([id number])[address], [place] [address] Protein [Mass/Vol] 6.9 g/dL Normal 6.0-8.0 [facility] Comment on above: Performed By: #### C FAITH, CBCA, HA1C, 39445-2 ####[facility] ([id number])[address], [address], [place] [address] Sodium [Moles/Vol] 138 mmol/L Normal 134-146 [facility] Comment on above: Performed By: #### C FAITH, CBCA, HA1C, 87072-9 ####[facility] ([id number])[address] [address], [place] [address] Urea nitrogen [Mass/Vol] 18 mg/dL Normal 5-27 [facility] Comment on above: Performed By: #### C FAITH, CBCA, HA1C, 90657-9 ####[facility] ([id number])[address], [place] [address] HGB A1C (GLYCO-HGB)on 2024 Glucose [Mass/Vol] 217 mg/dL Normal [facility] Comment on above: Performed By: #### C FAITH, CBCA, HA1C, 75633-3 ####[facility] ([id number])[address] [address] HbA1c (Bld) [Mass fraction] 9.2 % High 4.4-5.6 [facility] Comment on above: Result Comment: NOTE ADA Guidelines Result HgbA1c Normal : less than 5.7 % Prediabetes : 5.7 % to 6.4 % Diabetes : > 6.4 %Use with caution in patients with abnormal hemoglobin variants asthe half-life of red blood cells and in vivo glycation rates areaffected. Performed By: #### C FAITH, CBCA, HA1C, 16289-4 ####[facility] ([id number])[address] [address] Lipid 1996 panelon 5 Cholesterol [Mass/Vol] 133 mg/dL Low 150-200 [facility] Comment on above: Performed By: #### Renita CUEVAS, CBCA, HA1C, 21601-0 ####[facility] ([id number])[address] [address] Cholesterol in HDL [Mass/Vol] 47 mg/dL Normal >39 [facility] Comment on above: Result Comment: HDL <40 mg/dL - High RiskHDL > or = 40mg/dL- DesirableHDL >60 mg/dL - Negative Risk Performed By: #### Renita CUEVAS, CBCA, HA1C, 94141-2 ####[facility] ([id number])[address] [address] Cholesterol in LDL [Mass/Vol] 70 mg/dL Normal <130 [facility] Comment on above: Result Comment: LDL <100 mg/dL - DesirableLDL >160 mg/dL - High Risk Performed By: #### C FAITH, CBCA, HA1C, 40889-0 ####[facility] ([id number])[address], [address] [place] [address] Cholesterol in VLDL [Mass/Vol] 16 mg/dL Normal 0-30 [facility] Comment on above: Performed By: #### C FAITH, CBCA, HA1C, 31242-0 ####[facility] ([id number])[address], [address] [place] [address] CHOLESTEROL:HDL 2.8 Normal 1.0-5.0 [facility] Comment on above: Performed By: #### C FAITH, CBCA, HA1C, 41687-5 ####[facility] ([id number])[address], [address] [address] Triglyceride [Mass/Vol] 82 mg/dL Normal 27-150 [facility] Comment on above: Performed By: #### C FAITH, CBCA, HA1C, 60708-2 ####[facility] ([id number])[address] [address] CBC AND AUTO DIFFon 01-05-20 25 ABSOLUTE BASOPHIL 0.0 X10E9/L Normal 0.0-0.2 [facility] Comment on above: Performed By: #### C MP, 09086-5, CBCA, 12846-8, 60537-9, PINR ####[facility] ([id number])[address] [place] [address] ABSOLUTE NEUTROPHIL 5.1 X10E9/L Normal 1.5-6.6 [facility] Comment on above: Performed By: #### C FAITH, 81398-5, CBCA, 46616-2, 19125-7, PINR ####[facility] ([id number])[address] [place] [address] Basophils/100 WBC (Bld) 0.4 % Normal [facility] Comment on above: Performed By: #### C MP, 65494-7, CBCA, 36628-8, 69126-7, PINR ####[facility] ([id number])[address] [place] [address] Eosinophils (Bld) [#/Vol] 0.1 10*3/uL Normal 0.0-0.4 [facility] Comment on above: Performed By: #### C FAITH, 29863-7, CBCA, 95243-3, 66093-1, PINR ####[facility] ([id number])[address] [place] [address] Eosinophils/100 WBC (Bld) 1.7 % Normal [facility] Comment on above: Performed By: #### C FAITH, 66505-1, CBCA, 71888-6, 07599-5, PINR ####[facility] ([id number])[address] [place] [address] 65605 Erythrocyte distribution width (RBC) [Ratio] 15.9 % High 11.5-15.0 [facility] Comment on above: Performed By: #### C FAITH, 86572-1, CBCA, 25074-9, 24110-7, PINR ####[facility] ([id number])[address] [place] [address] 01541 Hematocrit (Bld) [Volume fraction] 34.2 % Low 35-47 [facility] Comment on above: Performed By: #### C FAITH, 10705-3, CBCA, 93252-9, 74568-8, PINR ####[facility] ([id number])[address] [place] [address] 71750 Hemoglobin (Bld) [Mass/Vol] 11.1 g/dL Low 11.7-15.5 [facility] Comment on above: Performed By: #### C MP, 08445-3, CBCA, 12811-7, 40505-2, PINR ####[facility] ([id number])[address] [place] [address] 01248 Lymphocytes (Bld) [#/Vol] 1.6 10*3/uL Normal 1.0-3.5 [facility] Comment on above: Performed By: #### C MP, 30098-8, CBCA, 11946-6, 69726-2, PINR ####[facility] ([id number])[address] [place] [address] 55298 Lymphocytes/100 WBC (Bld) 20.5 % Normal [facility] Comment on above: Performed By: #### C FAITH, 95360-1, CBCA, 13887-4, 54665-6, PINR ####[facility] ([id number])[address] [place] [address] 16059 MCH (RBC) [Entitic mass] 27.5 pg Normal 27-34 [facility] Comment on above: Performed By: #### C FAITH, 79269-8, CBCA, 00232-9, 32925-5, PINR ####[facility] ([id number])[address] [place] [address] 34308 MCHC (RBC) [Mass/Vol] 32.6 g/dL Normal 32-36 [facility] Comment on above: Performed By: #### C MP, 32907-2, CBCA, 64179-6, 35927-7, PINR ####[facility] ([id number])[address] [place] [address] 98682 MCV (RBC) [Entitic vol] 85 fL Normal 80-100 [facility] Comment on above: Performed By: #### C FAITH, 71192-1, CBCA, 25793-8, 61748-2, PINR ####[facility] ([id number])[address] [place] [address] 80309 Monocytes (Bld) [#/Vol] 0.9 10*3/uL Normal 0-0.9 [facility] Comment on above: Performed By: #### C MP, 08783-3, CBCA, 41047-7, 06481-9, PINR ####[facility] ([id number])[address] [place], [place] [address] 12922 Monocytes/100 WBC (Bld) 11.4 % Normal [facility] Comment on above: Performed By: #### C [place], 23397-0, CBCA, 67163-3, 18206-0, PINR ####[facility] ([id number])[address] [place] [address] 98625 Neutrophils/100 WBC (Bld) 66.0 % Normal [facility] Comment on above: Performed By: #### C MP, 64373-9, CBCA, 37739-2, 22303-3, PINR ####[facility] ([id number])[address] [place] [address] 08011 Platelet mean volume (Bld) [Entitic vol] 8.0 fL Normal 7-12 [facility] Comment on above: Performed By: #### C MP, 65477-9, CBCA, 18447-0, 22602-7, PINR ####[facility] ([id number])[address] [place] [address] 86600 Platelets (Bld) [#/Vol] 342 10*3/uL Normal 150-450 [facility] Comment on above: Performed By: #### C MP, 47852-2, CBCA, 89965-5, 30666-3, PINR ####[facility] ([id number])[address] [place] [address] 58893 RBC COUNT 4.04 X10E12/L Normal 3.80-5.20 [facility] Comment on above: Performed By: #### C MP, 39472-5, CBCA, 04671-3, 53972-5, PINR ####[facility] ([id number])[address] [place] [address] 07563 WBC (Bld) [#/Vol] 7.7 10*3/uL Normal 4.0-11.0 [facility] Comment on above: Performed By: #### C MP, 08944-7, CBCA, 10585-8, 99108-6, PINR ####[facility] ([id number])[address] [place] [address] 23775 COMPREHENSIVE METABOLIC PANE Dickson 11-19-2024 Albumin [Mass/Vol] 4.1 g/dL Normal 3.2-5.3 [facility] Comment on above: Performed By: #### C MP, 85618-8, CBCA, 75308-7, 17692-5, PINR ####[facility] ([id number])[address] [place] [address] 76002 ALP [Catalytic activity/Vol] 108 U/L Normal 39-130 [facility] Comment on above: Performed By: #### C MP, 42778-5, CBCA, 73480-6, 82655-4, PINR ####[facility] ([id number])[address] [place] [address] 96539 ALT [Catalytic activity/Vol] 18 U/L Normal 0-31 [facility] Comment on above: Performed By: #### C MP, 38701-0, CBCA, 98299-2, 36217-5, PINR ####[facility] ([id number])[address] [place] [address] 69520 Anion gap [Moles/Vol] 11 mmol/L Normal 5-15 [facility] Comment on above: Performed By: #### C MP, 54014-1, CBCA, 51867-3, 86273-5, PINR ####[facility] ([id number])[address] [place] [address] 76985 AST [Catalytic activity/Vol] 24 U/L Normal 0-41 [facility] Comment on above: Performed By: #### C MP, 25915-8, CBCA, 15134-1, 90506-2, PINR ####[facility] ([id number])[address] [place] [address] 03919 Bilirubin [Mass/Vol] 0.6 mg/dL Normal 0.3-1.2 [facility] Comment on above: Performed By: #### C MP, 95578-5, CBCA, 34598-9, 05395-0, PINR ####[facility] ([id number])[address] [place] [address] 66302 Calcium [Mass/Vol] 9.2 mg/dL Normal 8.5-10.5 [facility] Comment on above: Performed By: #### C MP, 66560-2, CBCA, 13512-3, 20861-5, PINR ####[facility] ([id number])[address] [place] [address] 22093 Chloride [Moles/Vol] 99 mmol/L Normal 98-109 [facility] Comment on above: Performed By: #### C MP, 33146-6, CBCA, 53657-2, 50918-3, PINR ####[facility] ([id number])[address] [place] [address] [place] [address] CO2 [Moles/Vol] 26 mmol/L Normal 22-32 [facility] Comment on above: Performed By: #### C MP, 66061-0, CBCA, 35510-7, 81906-5, PINR ####[facility] ([id number])[address] [place] [address] 48391 Creatinine [Mass/Vol] 1.67 mg/dL High 0.40-1.00 [facility] Comment on above: Result Comment: METH OD TRACEABLE TO IDMS STANDARD Performed By: #### C FAITH, 94850-6, CBCA, 01555-1, 03900-7, PINR ####[facility] ([id number])[address] [place] [address] 19956 GFR/1.73 sq M.predicted among non-blacks MDRD (S/P/Bld) [Vol rate/Area] 31 mL/min/{1.73_m2} Low >59 [facility] Comment on above: Result Comment: Repo rted eGFR is based on theCKD-EPI 2020 equation that doesnot use a race coefficient. Performed By: #### C FAITH, 43050-2, CBCA, 19543-6, 12513-9, PINR ####[facility] ([id number])[address] [place] [address] 59216 Glucose [Mass/Vol] 239 mg/dL High 65-99 [facility] Comment on above: Performed By: #### C FAITH, 44627-2, CBCA, 44944-7, 86632-0, PINR ####[facility] ([id number])[address] [place] [address] 64538 Potassium [Moles/Vol] 4.2 mmol/L Normal 3.5-5.0 [facility] Comment on above: Performed By: #### C FAITH, 65489-0, CBCA, 01442-8, 00446-4, PINR ####[facility] ([id number])[address] [place] [address] 92149 Protein [Mass/Vol] 8.1 g/dL High 6.0-8.0 [facility] Comment on above: Performed By: #### C FAITH, 97885-7, CBCA, 24571-7, 92558-3, PINR ####[facility] ([id number])[address] [place] [address] 51881 Sodium [Moles/Vol] 136 mmol/L Normal 134-146 [facility] Comment on above: Performed By: #### C MP, 62160-1, CBCA, 87994-9, 55291-3, PINR ####[facility] ([id number])[address] [place] [address] 65468 Urea nitrogen [Mass/Vol] 24 mg/dL Normal 5-27 [facility] Comment on above: Performed By: #### C FAITH, 53044-7, CBCA, 49508-0, 36404-8, PINR ####[facility] ([id number])[address] [place] [address] 89276 Lactate (P obed) [Moles/Vol]o n 11-19-2024 LACTATE W/REFLEX 1.5 mmol/L Normal 0.4-2.0 [facility] Comment on above: Result Comment: Resu lt did not trigger repeat Lactate,re-order if needed. Performed By: #### 3 2133-1 ####[facility] ([id number])[address] [place] [address] 45700 MAGNESIUMon 11-19-2024 Magnesium [Mass/Vol] 1.7 mg/dL Low 1.8-2.6 [facility] Comment on above: Performed By: #### C MP, 28280-5, CBCA, 82047-3, 13166-9, PINR ####[facility] ([id number])[address] [place] [address] 65298 Natriuretic peptide B [Mass/ Vol]on 11-19-2024 Natriuretic peptide B (Bld) [Mass/Vol] 73 pg/mL Normal <100.0 [facility] Comment on above: Performed By: #### C MP, 28425-0, CBCA, 88612-1, 39967-9, PINR ####[facility] ([id number])[address] [place] [address] 38073 PROTIME AND INRon 11-19-2024 INR Coag (PPP) [Relative time] 1.2 {INR} High 0.8-1.1 [facility] Comment on above: Performed By: #### C MP, 26417-2, CBCA, 91447-1, 02469-6, PINR ####[facility] ([id number])[address] [place] [address] 20201 PT Coag (PPP) [Time] 13.4 s High 9.8-13.2 [facility] Comment on above: Result Comment: NEW REFERENCE RANGE Performed By: #### C MP, 29117-5, CBCA, 23358-0, 98987-4, PINR ####[facility] ([id number])[address] [place] [address] 64665 URINE CULTUREon 11-19-2024 Bacteria identified Cx Nom (U) CULTURE RESULTS <10,000 ORGANISMS/ML NORMAL URO GENITAL BAILEY Normal [facility] Comment on above: Performed By: #### 6 30-4 ####[facility] ([id number])[address] [facility], [address], [place] [address] URN MACROSCOPIC NURon 2024 BILIRUBIN MARYJO Small Abnormal NEG [facility] Comment on above: Performed By: #### N UM ####[facility] ([id number])[address] [place] [address] [place] [address] BLOOD/HGB MARYJO Negative Normal NEG [facility] Comment on above: Performed By: #### N UM ####[facility] ([id number])[address] [place] [address] [place] [address] GLUCOSE MARYJO Negative Normal NEG [facility] Comment on above: Performed By: #### N UM ####[facility] ([id number])[address] [place] [address], [place] [address] KETONES MARYJO Negative Normal NEG [facility] Comment on above: Performed By: #### N UM ####[facility] ([id number])[address] [place] [address], [place] [address] LEUKOCYTE ESTERASE MARYJO Negative Normal NEG [facility] Comment on above: Performed By: #### N UM ####[facility] ([id number])[address] [place] [address] [place] [address] NITRITE MARYJO Negative Normal NEG [facility] Comment on above: Performed By: #### N UM ####[facility] ([id number])[address] [place] [address], [place] [address] PH MARYJO 6.0 Normal 5.0-8.5 [facility] Comment on above: Performed By: #### N UM ####[facility] ([id number])[address] [place] [address] [place] [address] PROTEIN MARYJO 30 mg/dL Abnormal NEG [facility] Comment on above: Performed By: #### N UM ####[facility] ([id number])[address] [place] [address] [place] [address] SPECIFIC GRAVITY MARYJO >=1.030 Normal 1.003-1.[address] [place] [address] Comment on above: Performed By: #### N UM ####[facility] ([id number])[address] [place] [address], [place] [address] UROBILINOGEN MARYJO 0.2 eu/dL Normal <1.1 [facility] Comment on above: Performed By: #### N UM ####[facility] ([id number])[address] [place] [address] [place] [address] aPTT Coag (PPP) [Time]on aPTT Coag (Bld) [Time] 33 s Normal 26-37 [facility] Comment on above: Result Comment: NEW REFERENCE RANGE Performed By: #### C MP, 56779-7, CBCA, 53682-7, 97058-7, PINR ####[facility] ([id number])[address] [place] [address] 32789 CBC AND AUTO DIFFon 11-17-19 25 ABSOLUTE BASOPHIL 0.0 X10E9/L Normal 0.0-0.2 [facility] Comment on above: Performed By: #### [facility], 1987-[facility] ####[facility] ([id number])[address] [place] [address] 13414 ABSOLUTE NEUTROPHIL 4.5 X10E9/L Normal 1.5-6.6 [facility] Comment on above: Performed By: #### Renita [facility], 1987-03 ####[facility] ([id number])[address] [place] [address] 29906 Basophils/100 WBC (Bld) 0.6 % Normal [facility] Comment on above: Performed By: #### Renita [facility], 1987-03 ####[facility] ([id number])[address] [place] [address] 51939 Eosinophils (Bld) [#/Vol] 0.1 10*3/uL Normal 0.0-0.4 [facility] Comment on above: Performed By: #### Renita [facility], 1987-03 ####[facility] ([id number])[address] [place] [address] 33209 Eosinophils/100 WBC (Bld) 1.8 % Normal [facility] Comment on above: Performed By: #### [facility], 1987-03 ####[facility] ([id number])[address] [place] [address] 12928 Erythrocyte distribution width (RBC) [Ratio] 15.3 % High 11.5-15.0 [facility] Comment on above: Performed By: #### [facility], 1987-03 ####[facility] ([id number])[address] [place] [address] 16968 Hematocrit (Bld) [Volume fraction] 31.8 % Low 35-47 [facility] Comment on above: Performed By: #### [facility], 1987-03 ####[facility] ([id number])[address] [place] [address] 50604 Hemoglobin (Bld) [Mass/Vol] 10.6 g/dL Low 11.7-15.5 [facility] Comment on above: Performed By: #### [facility], 1987-03 ####[facility] ([id number])[address] [place] [address] 10655 Lymphocytes (Bld) [#/Vol] 1.7 10*3/uL Normal 1.0-3.5 [facility] Comment on above: Performed By: #### [facility], 1987-03 ####[facility] ([id number])[address] [place] [address] 87300 Lymphocytes/100 WBC (Bld) 24.2 % Normal [facility] Comment on above: Performed By: #### [facility], 1987-03 ####[facility] ([id number])[address] [place] [address] 47500 MCH (RBC) [Entitic mass] 28.0 pg Normal 27-34 [facility] Comment on above: Performed By: #### [facility], 1987-03 ####[facility] ([id number])[address] [place] [address] 21759 MCHC (RBC) [Mass/Vol] 33.3 g/dL Normal 32-36 [facility] Comment on above: Performed By: #### [facility], 1988-03 ####[facility] ([id number])[address] [place] [address] 52034 MCV (RBC) [Entitic vol] 84 fL Normal 80-100 [facility] Comment on above: Performed By: #### [facility], 1988-03 ####[facility] ([id number])[address] [place] [address] 40740 Monocytes (Bld) [#/Vol] 0.7 10*3/uL Normal 0-0.9 [facility] Comment on above: Performed By: #### [facility], 1988-03 ####[facility] ([id number])[address] [place] [address] 09490 Monocytes/100 WBC (Bld) 10.6 % Normal [facility] Comment on above: Performed By: #### [facility], 1988-03 ####[facility] ([id number])[address] [place] [address] 15032 Neutrophils/100 WBC (Bld) 62.8 % Normal [facility] Comment on above: Performed By: #### [facility], 1988-03 ####[facility] ([id number])[address] [place] [address] 88179 Platelet mean volume (Bld) [Entitic vol] 7.9 fL Normal 7-12 [facility] Comment on above: Performed By: #### [facility], 1988-03 ####[facility] ([id number])[address] [place] [address] 57877 Platelets (Bld) [#/Vol] 344 10*3/uL Normal 150-450 [facility] Comment on above: Performed By: #### [facility], 1988-03 ####[facility] ([id number])[address] [place] [address] 08315 RBC COUNT 3.77 X10E12/L Low 3.80-5.20 [facility] Comment on above: Performed By: #### C RUBEN HENSON, 1987-03 ####[facility] ([id number])[address] [place] [address] 91868 WBC (Bld) [#/Vol] 7.1 10*3/uL Normal 4.0-11.0 [facility] Comment on above: Performed By: #### Renita HENSON CMP, 1987-03 ####[facility] ([id number])[address] [place] [address] 47775 COMPREHENSIVE METABOLIC PANE Dickson 11-17-2024 Albumin [Mass/Vol] 3.9 g/dL Normal 3.2-5.3 [facility] Comment on above: Performed By: #### Renita HENSON CMP, 1987-03 ####[facility] ([id number])[address] [place] [address] 10899 ALP [Catalytic activity/Vol] 106 U/L Normal 39-130 [facility] Comment on above: Performed By: #### [facility], 1988-03 ####[facility] ([id number])[address] [place] [address] 64919 ALT [Catalytic activity/Vol] 17 U/L Normal 0-31 [facility] Comment on above: Performed By: #### Renita HENSON CMP, 1987-03 ####[facility] ([id number])[address] [place] [address] 61806 Anion gap [Moles/Vol] 10 mmol/L Normal 5-15 [facility] Comment on above: Performed By: #### Renita HENSON CMP, 1987-03 ####[facility] ([id number])[address] [place] [address] 50704 AST [Catalytic activity/Vol] 23 U/L Normal 0-41 [facility] Comment on above: Performed By: #### Renita HENSON CMP, 1987-03 ####[facility] ([id number])[address] [place] [address] 52265 Bilirubin [Mass/Vol] 0.5 mg/dL Normal 0.3-1.2 [facility] Comment on above: Performed By: #### [facility], 1988-03 ####[facility] ([id number])[address] [place] [address] 19487 Calcium [Mass/Vol] 9.2 mg/dL Normal 8.5-10.5 [facility] Comment on above: Performed By: #### [facility], 1988-03 ####[facility] ([id number])[address] [place] [address] 63537 Chloride [Moles/Vol] 101 mmol/L Normal 98-109 [facility] Comment on above: Performed By: #### [facility], 1988-03 ####[facility] ([id number])[address] [place] [address] 35299 CO2 [Moles/Vol] 26 mmol/L Normal 22-32 [facility] Comment on above: Performed By: #### [facility], 1988-03 ####[facility] ([id number])[address] [place] [address] 90831 Creatinine [Mass/Vol] 1.29 mg/dL High 0.40-1.00 [facility] Comment on above: Result Comment: METH OD TRACEABLE TO IDMS STANDARD Performed By: #### [facility], 1988-03 ####[facility] ([id number])[address] [place] [address] 50957 GFR/1.73 sq M.predicted among non-blacks MDRD (S/P/Bld) [Vol rate/Area] 42 mL/min/{1.73_m2} Low >59 [facility] Comment on above: Result Comment: Repo rted eGFR is based on theCKD-EPI 2020 equation that doesnot use a race coefficient. Performed By: #### [facility], 1988-03 ####[facility] ([id number])[address] [place] [address] 53018 Glucose [Mass/Vol] 212 mg/dL High 65-99 [facility] Comment on above: Performed By: #### Renita [facility], 1988-03 ####[facility] ([id number])[address] [place] [address] 56935 Potassium [Moles/Vol] 4.2 mmol/L Normal 3.5-5.0 [facility] Comment on above: Performed By: #### [facility]ita [facility], 1988-03 ####[facility] ([id number])[address] [place] [address] 65768 Protein [Mass/Vol] 7.8 g/dL Normal 6.0-8.0 [facility] Comment on above: Performed By: #### Renita [facility], 1988-03 ####[facility] ([id number])[address] [place] [address] 57693 Sodium [Moles/Vol] 137 mmol/L Normal 134-146 [facility] Comment on above: Performed By: #### Renita [facility], 1988-03 ####[facility] ([id number])[address] [place] [address] 38849 Urea nitrogen [Mass/Vol] 18 mg/dL Normal 5-27 [facility] Comment on above: Performed By: #### Rentia [facility], 1988-03 ####[facility] ([id number])[address] [place] [address] [place] [address] CRP [Mass/Vol]on 11-17-2024 C REACTIVE PROTEIN 2.4 mg/dL High 0.000-0.74 4 [facility] Comment on above: Performed By: #### Renita HENSON CMP, 1987-03 ####[facility] ([id number])[address] [place] [address] 13907 Lactate (P obed) [Moles/Vol]o n 11-17-2024 LACTATE W/REFLEX 1.2 mmol/L Normal 0.4-2.0 [facility] Comment on above: Result Comment: Resu lt did not trigger repeat Lactate,re-order if needed. Performed By: #### 3 2133-1 ####[facility] ([id number])[address] [place] [address] 87229 URINE CULTUREon 11-17-2024 Bacteria identified Cx Nom (U) CULTURE RESULTS 50,000 to 100,000 ORGANISMS/mL BEVERLY GLABRATA <10,000 ORGANISMS/mL NORMAL URO GENITAL BAILEY Normal [facility] Comment on above: Performed By: #### 6 30-4 ####[facility] ([id number])[address] [place] [address], [address], [place] [address] URN MACROSCOPIC NURon 2024 BILIRUBIN MARYJO Negative Normal NEG [facility] Comment on above: Performed By: #### N UM ####[facility] ([id number])[address] [place] [address] 04560 BLOOD/HGB MARYJO Trace Abnormal NEG [facility] Comment on above: Performed By: #### N UM ####[facility] ([id number])[address] [place] [address] 60268 GLUCOSE MARYJO Negative Normal NEG [facility] Comment on above: Performed By: #### N UM ####[facility] ([id number])[address] [place] [address] 12710 KETONES MARYJO Negative Normal NEG [facility] Comment on above: Performed By: #### N UM ####[facility] ([id number])[address] [place] [address] 82698 LEUKOCYTE ESTERASE MARYJO Trace Abnormal NEG [facility] Comment on above: Performed By: #### N UM ####[facility] ([id number])[address] [place] [address] 17906 NITRITE MARYJO Negative Normal NEG [facility] Comment on above: Performed By: #### N UM ####[facility] ([id number])[address] [place] [address] 19285 PH MARYJO 7.0 Normal 5.0-8.5 [facility] Comment on above: Performed By: #### N UM ####[facility] ([id number])[address] [place] [address] 32793 PROTEIN MARYJO 100 mg/dL Abnormal NEG [facility] Comment on above: Performed By: #### N UM ####[facility] ([id number])[address] [place] [address] 74642 SPECIFIC GRAVITY MARYJO >=1.030 Normal 1.003-1.[address] [place] [address] Comment on above: Performed By: #### N UM ####[facility] ([id number])[address] [place] [address] 58649 UROBILINOGEN MARYJO 0.2 eu/dL Normal <1.1 [facility] Comment on above: Performed By: #### N UM ####[facility] ([id number])[address] [place] [address] 70875 CBC AND AUTO DIFFon 11-10-20 24 ABSOLUTE BASOPHIL 0.1 X10E9/L Normal 0.0-0.2 [facility] Comment on above: Performed By: #### C FAITH, 26851-6, CBCA ####[facility] ([id number])[address] [place] [address] 43727 ABSOLUTE NEUTROPHIL 4.4 X10E9/L Normal 1.5-6.6 [facility] Comment on above: Performed By: #### C FAITH, , CBCA ####[facility] ([id number])[address] [place] [address] 27355 Basophils/100 WBC (Bld) 0.9 % Normal [facility] Comment on above: Performed By: #### C FAITH, , CBCA ####[facility] ([id number])[address] [place] [address] 28674 Eosinophils (Bld) [#/Vol] 0.2 10*3/uL Normal 0.0-0.4 [facility] Comment on above: Performed By: #### C FAITH, , CBCA ####[facility] ([id number])[address] [place] [address] 19471 Eosinophils/100 WBC (Bld) 3.2 % Normal [facility] Comment on above: Performed By: #### C FAITH, , CBCA ####[facility] ([id number])[address] [place] [address] 82668 Erythrocyte distribution width (RBC) [Ratio] 15.6 % High 11.5-15.0 [facility] Comment on above: Performed By: #### C FAITH, , CBCA ####[facility] ([id number])[address] [place] [address] 87684 Hematocrit (Bld) [Volume fraction] 29.8 % Low 35-47 [facility] Comment on above: Performed By: #### C FAITH, , CBCA ####[facility] ([id number])[address] [place] [address] 01041 Hemoglobin (Bld) [Mass/Vol] 9.8 g/dL Low 11.7-15.5 [facility] Comment on above: Performed By: #### C FAITH, , CBCA ####[facility] ([id number])[address] [place] [address] 79384 Lymphocytes (Bld) [#/Vol] 2.1 10*3/uL Normal 1.0-3.5 [facility] Comment on above: Performed By: #### C FAITH, , CBCA ####[facility] ([id number])[address] [place] [address] 33375 Lymphocytes/100 WBC (Bld) 27.1 % Normal [facility] [facility] Comment on above: Performed By: #### Renita CUEVAS, , CBCA ####[facility] ([id number])[address] [place] [address] 04961 MCH (RBC) [Entitic mass] 28.0 pg Normal 27-34 [facility] Comment on above: Performed By: #### Renita CUEVAS, , CBCA ####[facility] ([id number])[address] [place] [address] 68467 MCHC (RBC) [Mass/Vol] 33.0 g/dL Normal 32-36 [facility] Comment on above: Performed By: #### eRnita CUEVAS, , CBCA ####[facility] ([id number])[address] [place] [address] 71558 MCV (RBC) [Entitic vol] 85 fL Normal 80-100 [facility] Comment on above: Performed By: #### Renita CUEVAS, , CBCA ####[facility] ([id number])[address] [place] [address] 06901 Monocytes (Bld) [#/Vol] 0.8 10*3/uL Normal 0-0.9 [facility] Comment on above: Performed By: #### Renita CUEVAS, , CBCA ####[facility] ([id number])[address] [place] [address] 41627 Monocytes/100 WBC (Bld) 10.5 % Normal [facility] Comment on above: Performed By: #### C FAITH, , CBCA ####[facility] ([id number])[address] [place] [address] 33559 Neutrophils/100 WBC (Bld) 58.3 % Normal [facility] Comment on above: Performed By: #### C FAITH, , CBCA ####[facility] ([id number])[address] [place] [address] 51119 Platelet mean volume (Bld) [Entitic vol] 8.6 fL Normal 7-12 [facility] Comment on above: Performed By: #### C FAITH, , CBCA ####[facility] ([id number])[address] [place] [address] 51230 Platelets (Bld) [#/Vol] 268 10*3/uL Normal 150-450 [facility] Comment on above: Performed By: #### C FAITH, , CBCA ####[facility] ([id number])[address] [place] [address] 42108 RBC COUNT 3.52 X10E12/L Low 3.80-5.20 [facility] Comment on above: Performed By: #### Renita CUEVAS, , CBCA ####[facility] ([id number])[address] [place] [address] 21911 WBC (Bld) [#/Vol] 7.6 10*3/uL Normal 4.0-11.0 [facility] Comment on above: Performed By: #### C FAITH, , CBCA ####[facility] ([id number])[address] [place] [address] 88637 COMPREHENSIVE METABOLIC PANE [facility] 11-10-2024 Albumin [Mass/Vol] 3.7 g/dL Normal 3.2-5.3 [facility] Comment on above: Performed By: #### C FAITH, , CBCA ####[facility] ([id number])[address] [place] [address] 91739 ALP [Catalytic activity/Vol] 90 U/L Normal 39-130 [facility] Comment on above: Performed By: #### C FAITH, , CBCA ####[facility] ([id number])[address] [place] [address] 07796 ALT [Catalytic activity/Vol] 16 U/L Normal 0-31 [facility] Comment on above: Performed By: #### C FAITH, , CBCA ####[facility] ([id number])[address] [place] [address] 24294 Anion gap [Moles/Vol] 9 mmol/L Normal 5-15 [facility] Comment on above: Performed By: #### Rentia CUEVAS, , CBCA ####[facility] ([id number])[address] [place] [address] 74785 AST [Catalytic activity/Vol] 17 U/L Normal 0-41 [facility] Comment on above: Performed By: #### Renita CUEVAS, , CBCA ####[facility] ([id number])[address] [place] [address] [place] [address] Bilirubin [Mass/Vol] 0.5 mg/dL Normal 0.3-1.2 [facility] Comment on above: Performed By: #### Renita CUEVAS, , CBCA ####[facility] ([id number])[address] [place] [address] [place] [address] Calcium [Mass/Vol] 8.9 mg/dL Normal 8.5-10.5 [facility] Comment on above: Performed By: #### C FAITH, , CBCA ####[facility] ([id number])[address] [place] [address] 43236 Chloride [Moles/Vol] 101 mmol/L Normal 98-109 [facility] Comment on above: Performed By: #### C FAITH, , CBCA ####[facility] ([id number])[address] [place] [address] 88780 CO2 [Moles/Vol] 25 mmol/L Normal 22-32 [facility] Comment on above: Performed By: #### C FAITH, , CBCA ####[facility] ([id number])[address] [place] [address] 88421 Creatinine [Mass/Vol] 1.38 mg/dL High 0.40-1.00 [facility] Comment on above: Result Comment: METH OD TRACEABLE TO IDMS STANDARD Performed By: #### C FAITH, , CBCA ####[facility] ([id number])[address] [place] [address] 77336 GFR/1.73 sq M.predicted among non-blacks MDRD (S/P/Bld) [Vol rate/Area] 39 mL/min/{1.73_m2} Low >59 [facility] Comment on above: Result Comment: Repo rted eGFR is based on theCKD-EPI 2020 equation that doesnot use a race coefficient. Performed By: #### C FAITH, , CBCA ####[facility] ([id number])[address] [place] [address] 08069 Glucose [Mass/Vol] 146 mg/dL High 65-99 [facility] Comment on above: Performed By: #### C FAITH, , CBCA ####[facility] ([id number])[address] [place] [address] 24915 Potassium [Moles/Vol] 4.2 mmol/L Normal 3.5-5.0 [facility] Comment on above: Performed By: #### Renita CUEVAS, , CBCA ####[facility] ([id number])[address] [place] [address] 84011 Protein [Mass/Vol] 7.1 g/dL Normal 6.0-8.0 [facility] Comment on above: Performed By: #### Renita CUEVAS, , CBCA ####[facility] ([id number])[address] [place] [address] 60440 Sodium [Moles/Vol] 135 mmol/L Normal 134-146 [facility] Comment on above: Performed By: #### Renita CUEVAS, , CBCA ####[facility] ([id number])[address] [place] [address] 60079 Urea nitrogen [Mass/Vol] 22 mg/dL Normal -27 [facility] Comment on above: Performed By: #### Renita CUEVAS, , CBCA ####[facility] ([id number])[address] [place] [address] 63807 Glucose Glucometer (BldC) [M ass/Vol]on 11-10-2024 Glucose [Mass/Vol] 337 mg/dL High 65-99 [facility] MAGNESIUMon 11-10-2024 Magnesium [Mass/Vol] 2.4 mg/dL Normal 1.8-2.6 [facility] Comment on above: Performed By: #### Renita CUEVAS, , CBCA ####[facility] ([id number])[address] [place] [address] 89592 BLOOD CULTUREon 11-09-2024 Bacteria identified Aer cx Nom (Bld) CULTURE RESULTS NO GROWTH 5 DAYS Normal [facility] Bacteria identified Aer cx Nom (Bld) CULTURE RESULTS NO GROWTH 5 DAYS Normal [facility] CBC AND AUTO DIFFon 11-09-20 24 ABSOLUTE BASOPHIL 0.0 X10E9/L Normal 0.0-0.2 [facility] Comment on above: Performed By: #### C FAITH, 27045-4, CBCA, , 29321-8 ####[facility] ([id number])[address] [place] [address] 38041 ABSOLUTE NEUTROPHIL 4.6 X10E9/L Normal 1.5-6.6 [facility] Comment on above: Performed By: #### C FAITH, 55497-9, CBCA, , 84816-7 ####[facility] ([id number])[address] [place] [address] 68849 Basophils/100 WBC (Bld) 0.5 % Normal [facility] Comment on above: Performed By: #### C FAITH, 97394-5, CBCA, , 79393-6 ####[facility] ([id number])[address] [place] [address] 08135 Eosinophils (Bld) [#/Vol] 0.1 10*3/uL Normal 0.0-0.4 [facility] Comment on above: Performed By: #### C FAITH, 83551-2, CBCA, , 33677-8 ####[facility] ([id number])[address] [place] [address] 06722 Eosinophils/100 WBC (Bld) 1.7 % Normal [facility] Comment on above: Performed By: #### C FAITH, 74210-8, CBCA, , 12961-9 ####[facility] ([id number])[address] [place] [address] 34000 Erythrocyte distribution width (RBC) [Ratio] 15.3 % High 11.5-15.0 [facility] Comment on above: Performed By: #### C FAITH, 12237-4, CBCA, , 15931-5 ####[facility] ([id number])[address] [place] [address] 47703 Hematocrit (Bld) [Volume fraction] 29.6 % Low 35-47 [facility] Comment on above: Performed By: #### C FAITH, 54294-9, CBCA, , 50823-1 ####[facility] ([id number])[address] [place] [address] 04919 Hemoglobin (Bld) [Mass/Vol] 10.1 g/dL Low 11.7-15.5 [facility] Comment on above: Performed By: #### C FAITH, 08970-9, CBCA, , 61594-8 ####[facility] ([id number])[address] [place] [address] 72647 Lymphocytes (Bld) [#/Vol] 2.1 10*3/uL Normal 1.0-3.5 [facility] Comment on above: Performed By: #### C FAITH, 85372-9, CBCA, , 73228-2 ####[facility] ([id number])[address] [place] [address] 51842 Lymphocytes/100 WBC (Bld) 27.4 % Normal [facility] Comment on above: Performed By: #### C FAITH, 32175-1, CBCA, , 83392-6 ####[facility] ([id number])[address] [place] [address] 01343 MCH (RBC) [Entitic mass] 28.9 pg Normal 27-34 [facility] Comment on above: Performed By: #### C FAITH, 95745-9, CBCA, , 70954-1 ####[facility] ([id number])[address] [place] [address] 07594 MCHC (RBC) [Mass/Vol] 34.3 g/dL Normal 32-36 [facility] Comment on above: Performed By: #### C FAITH, 65688-8, CBCA, , 30392-3 ####[facility] ([id number])[address] [place] [address] 13718 MCV (RBC) [Entitic vol] 84 fL Normal 80-100 [facility] Comment on above: Performed By: #### C FAITH, 44122-0, CBCA, , 28313-3 ####[facility] ([id number])[address] [place] [address] 10480 Monocytes (Bld) [#/Vol] 0.9 10*3/uL Normal 0-0.9 [facility] Comment on above: Performed By: #### C FAITH, 80507-0, CBCA, , 81243-9 ####[facility] ([id number])[address] [place] [address] 44591 Monocytes/100 WBC (Bld) 11.3 % Normal [facility] Comment on above: Performed By: #### C FAITH, 57150-9, CBCA, , 37381-1 ####[facility] ([id number])[address] [place] [address] 27377 Neutrophils/100 WBC (Bld) 59.1 % Normal [facility] Comment on above: Performed By: #### C FAITH, 00284-7, CBCA, , 94016-5 ####[facility] ([id number])[address] [place] [address] 01092 Platelet mean volume (Bld) [Entitic vol] 8.2 fL Normal 7-12 [facility] Comment on above: Performed By: #### C FAITH, 99137-6, CBCA, , 71686-1 ####[facility] ([id number])[address] [place] [address] 71965 Platelets (Bld) [#/Vol] 275 10*3/uL Normal 150-450 [facility] Comment on above: Performed By: #### C MP, 26770-4, CBCA, 16320-5, 05371-8 ####[facility] ([id number])[address] [place] [address] 24072 RBC COUNT 3.51 X10E12/L Low 3.80-5.20 [facility] Comment on above: Performed By: #### C FAITH, 51434-4, CBCA, 87257-4, 34485-8 ####[facility] ([id number])[address] [place] [address] 31211 WBC (Bld) [#/Vol] 7.8 10*3/uL Normal 4.0-11.0 [facility] Comment on above: Performed By: #### C FAITH, 85288-6, CBCA, 27632-3, 91299-6 ####[facility] ([id number])[address] [place] [address] 25847 COMPREHENSIVE METABOLIC PANE [facility] 11-09-2024 Albumin [Mass/Vol] 3.5 g/dL Normal 3.2-5.3 [facility] Comment on above: Performed By: #### C MP, 01491-3, CBCA, 15041-8, 35622-0 ####[facility] ([id number])[address] [place] [address] 97728 ALP [Catalytic activity/Vol] 89 U/L Normal 39-130 [facility] Comment on above: Performed By: #### C MP, 05467-7, CBCA, 31987-6, 01288-0 ####[facility] ([id number])[address] [place] [address], [place] [address] ALT [Catalytic activity/Vol] 16 U/L Normal 0-31 [facility] Comment on above: Performed By: #### C FAITH, 36769-8, CBCA, , 98636-8 ####[facility] ([id number])[address] [place] [address] 85846 Anion gap [Moles/Vol] 10 mmol/L Normal 5-15 [facility] Comment on above: Performed By: #### C FAITH, 89861-3, CBCA, , 01129-9 ####[facility] ([id number])[address] [place] [address] 06789 AST [Catalytic activity/Vol] 19 U/L Normal 0-41 [facility] Comment on above: Performed By: #### C FAITH, 05061-7, CBCA, , 34157-2 ####[facility] ([id number])[address] [place] [address] 32801 Bilirubin [Mass/Vol] 0.7 mg/dL Normal 0.3-1.2 [facility] Comment on above: Performed By: #### C FAITH, 61131-3, CBCA, , 12229-5 ####[facility] ([id number])[address] [place] [address] 85049 Calcium [Mass/Vol] 9.3 mg/dL Normal 8.5-10.5 [facility] Comment on above: Performed By: #### C FAITH, 33970-1, CBCA, , 18282-9 ####[facility] ([id number])[address] [place] [address] 24248 Chloride [Moles/Vol] 99 mmol/L Normal 98-109 [facility] Comment on above: Performed By: #### C FAITH, 05154-9, CBCA, , 56872-7 ####[facility] ([id number])[address] [place] [address] 39951 CO2 [Moles/Vol] 28 mmol/L Normal 22-32 [facility] Comment on above: Performed By: #### C FAITH, 77432-5, CBCA, 73595-4, 76012-9 ####[facility] ([id number])[address] [place] [address] 59630 Creatinine [Mass/Vol] 1.32 mg/dL High 0.40-1.00 [facility] Comment on above: Result Comment: METH OD TRACEABLE TO IDMS STANDARD Performed By: #### C FAITH, 15229-1, CARMEN, , 64102-3 ####[facility] ([id number])[address] [place] [address] 65920 GFR/1.73 sq M.predicted among non-blacks MDRD (S/P/Bld) [Vol rate/Area] 41 mL/min/{1.73_m2} Low >59 [facility] Comment on above: Result Comment: Repo rted eGFR is based on theCKD-EPI 2020 equation that doesnot use a race coefficient. Performed By: #### C FAITH, 70155-4, CARMEN, , 39923-0 ####[facility] ([id number])[address] [place] [address] 31237 Glucose [Mass/Vol] 206 mg/dL High 65-99 [facility] Comment on above: Performed By: #### C FAITH, 91109-1, CBCA, , 31898-0 ####[facility] ([id number])[address] [place] [address] 78219 Potassium [Moles/Vol] 3.9 mmol/L Normal 3.5-5.0 [facility] Comment on above: Performed By: #### C FAITH, 89263-2, CBCA, 91302-8, 25289-1 ####[facility] ([id number])[address] [place] [address] 74968 Protein [Mass/Vol] 7.3 g/dL Normal 6.0-8.0 [facility] Comment on above: Performed By: #### C FAITH, 51187-2, CBCA, 50668-3, 31175-4 ####[facility] ([id number])[address] [place] [address] 51001 Sodium [Moles/Vol] 137 mmol/L Normal 134-146 [facility] Comment on above: Performed By: #### C FAITH, 19518-3, CBCA, 37556-6, 43230-0 ####[facility] ([id number])[address] [place] [address] 92802 Urea nitrogen [Mass/Vol] 17 mg/dL Normal 5-27 [facility] Comment on above: Performed By: #### C FAITH, 08875-9, CBCA, 09112-4, 60988-4 ####[facility] ([id number])[address] [place] [address] 18621 CRP High sensitivity method [Mass/Vol]on 11-09-2024 HS CRP 3.030 mg/dL High 0.000-0.74 4 [facility] Comment on above: Result Comment: Hs-C [...] other conditions. Performed By: #### 3 0522-7 ####[facility] ([id number])[address] [facility], [address] [place] [address] 92415 HS CRP 2.859 mg/dL High 0.000-0.74 4 [facility] Comment on above: Result Comment: Hs-C [...] other conditions. Performed By: #### 8 9579-7 ####[facility] ([id number])[address] [place] [address] 70786#### 57919-8 ####[facility] ([id number])[address] [facility], [address] [place] [address] 31358 Glucose Glucometer (BldC) [M ass/Vol]on 11-09-2024 Glucose [Mass/Vol] 252 mg/dL High 65-99 [facility] Glucose [Mass/Vol] 118 mg/dL High 65-99 [facility] Glucose [Mass/Vol] 253 mg/dL High 65-99 [facility] Lactate (P obed) [Moles/Vol]o n 11-09-2024 LACTATE W/REFLEX 1.2 mmol/L Normal 0.4-2.0 [facility] Comment on above: Result Comment: Resu lt did not trigger repeat Lactate,re-order if needed. Performed By: #### 3 2133-1 ####[facility] ([id number])[address] [place] [address] 97281 MAGNESIUMon 11-09-2024 Magnesium [Mass/Vol] 2.6 mg/dL Normal 1.8-2.6 [facility] Comment on above: Performed By: #### 1 9123-9 ####[facility] ([id number])[address] [place] [address] 94099 Magnesium [Mass/Vol] 1.6 mg/dL Low 1.8-2.6 [facility] Comment on above: Performed By: #### C MP, 79272-3, CBCA, 47722-1, 02419-2 ####[facility] ([id number])[address] [place] [address] 70184 Natriuretic peptide B [Mass/ Vol]on 11-09-2024 Natriuretic peptide B (Bld) [Mass/Vol] 74 pg/mL Normal <100.0 [facility] Comment on above: Performed By: #### C MP, 39033-8, CBCA, 11568-8, 40800-3 ####[facility] ([id number])[address] [place] [address] 58750 RESP PATHOGENS/ENSQ-IqM-[id number] 11-09-2024 Respiratory pathogens DNA and RNA panel SIRI+non-probe (Nph) Normal [facility] Comment on above: Performed By: #### 8 2159-5 ####[facility] ([id number])[address] [place] [address] ([id number])[address] [facility], [address] [address] SARS/FLU A+B/RSV by NAAT/Mol ecularon 11-09-2024 SARS/FLU A+B/RSV by NAAT/Molecular Normal [facility] Comment on above: Performed By: #### C OVFLR ####[facility] ([id number])[address] [place] [address] 32042 Troponin I.cardiac High sens itivity method [Mass/Vol]on 11-09-2024 1 HOUR TROP I, HIGH SENSITIVITY 92 ng/L High <16 [facility] Comment on above: Result Comment: Elev ations of hs-Troponin may be due to causesother than myocardial ischemia.Recommend serial hs-Troponin testing be performed.For the initial evaluation and management of chestpain patients, refer to the algorithms linked below.Emergency Patient:[email or web address] Performed By: #### 8 9579-7 ####[facility] ([id number])[address] [place] [address]#### 98081-5 ####[facility] ([id number])[address] [facility], [address] [place] [address] 52446 TROPONIN I, HIGH SENSITIVITY 97 ng/L High <16 [facility] Comment on above: Result Comment: Elev ations of hs-Troponin may be due to causesother than myocardial ischemia.Recommend serial hs-Troponin testing be performed.For the initial evaluation and management of chestpain patients, refer to the algorithms linked below.Emergency Patient:[email or web address] Performed By: #### C MP, 12390-7, CBCA, 57551-0, 36520-2 ####[facility] ([id number])[address] [place] [address] URINALYSISon 11-09-2024 Bilirubin Ql (U) Negative Normal NEG [facility] Comment on above: Performed By: #### U A ####[facility] ([id number])[address] [place] [address], [place] [address] BLOOD/HGB Negative Normal NEG [facility] Comment on above: Performed By: #### U A ####[facility] ([id number])[address] [place] [address], [place] [address] Color (U) YELLOW Normal YELLOW [facility] Comment on above: Performed By: #### U A ####[facility] ([id number])[address] [place] [address], [place] [address] Glucose Ql (U) Negative Normal NEG [facility] Comment on above: Performed By: #### U A ####[facility] ([id number])[address] [place] [address], [place] [address] Ketones Ql (U) Negative Normal NEG [facility] Comment on above: Performed By: #### U A ####[facility] ([id number])[address] [place] [address], [place] [address] Leukocyte esterase Test strip Ql (U) SMALL Abnormal NEG [facility] Comment on above: Performed By: #### U A ####[facility] ([id number])[address] [place] [address], [place] [address] Nitrite Ql (U) Positive Abnormal NEG [facility] Comment on above: Performed By: #### U A ####[facility] ([id number])[address] [place] [address], [place] [address] pH (U) 6.0 [pH] Normal 5.0-8.5 [facility] Comment on above: Performed By: #### U A ####[facility] ([id number])[address] [place] [address], [place] [address] Protein Ql (U) Trace Abnormal NEG [facility] Comment on above: Performed By: #### U A ####[facility] ([id number])[address] [place] [address] 73684 R.B.CELLS 1 /hpf Normal 0-5 [facility] Comment on above: Performed By: #### U A ####[facility] ([id number])[address] [place] [address] Specific gravity (U) [Rel density] 1.025 Normal 1.003-1.03 5 [facility] Comment on above: Performed By: #### U A ####[facility] ([id number])[address] [place] [address] SQUAMOUS EPITHELIUM 3 /hpf Normal 0-5 [facility] Comment on above: Performed By: #### U A ####[facility] ([id number])[address] [place] [address] TURBIDITY CLEAR Normal CLEAR [facility] Comment on above: Performed By: #### U A ####[facility] ([id number])[address] [place] [address]1883 Urobilinogen Qn (U) 0.2 {Artie'U}/dL Normal <1.1 [facility] Comment on above: Performed By: #### U A ####[facility] ([id number])[address] [place] [address] W.B.CELLS 2 /hpf Normal 0-5 [facility] Comment on above: Performed By: #### U A ####[facility] ([id number])[address] [place] [address] URINE CULTUREon 11-09-2024 Bacteria identified Cx Nom (U) Susceptible [facility] Comment on above: Performed By: #### 6 30-4 ####[facility] ([id number])[address] [facility], [address] [address] XR CHEST 1 VWon 11-09-2024 XR CHEST 1 VW Normal [facility] CBC AND AUTO DIFFon 10-30-20 ABSOLUTE BASOPHIL 0.0 X10E9/L Normal 0.0-0.2 [facility] Comment on above: Performed By: #### 1 9123-9, CBCA, CMP ####[facility] ([id number])[address] [place] [address] ABSOLUTE NEUTROPHIL 3.1 X10E9/L Normal 1.5-6.6 [facility] Comment on above: Performed By: #### 1 9123-9, CBCA, CMP ####[facility] ([id number])[address] [place] [address]2054 Basophils/100 [facility] (Bld) 0.8 % Normal [facility] Comment on above: Performed By: #### 1 9123-9, CBCA, CMP ####[facility] ([id number])[address] [place] [address] 30060 Eosinophils (Bld) [#/Vol] 0.4 10*3/uL Normal 0.0-0.4 [facility] Comment on above: Performed By: #### 1 9123-9, CBCA, CMP ####[facility] ([id number])[address] [place] [address] 26873 Eosinophils/100 WBC (Bld) 5.9 % Normal [facility] Comment on above: Performed By: #### 1 9123-9, CBCA, CMP ####[facility] ([id number])[address] [place] [address] 50637 Erythrocyte distribution width (RBC) [Ratio] 15.8 % High 11.5-15.0 [facility] Comment on above: Performed By: #### 1 9123-9, CBCA, CMP ####[facility] ([id number])[address] [place] [address] 95292 Hematocrit (Bld) [Volume fraction] 30.3 % Low 35-47 [facility] Comment on above: Performed By: #### 1 9123-9, CBCA, CMP ####[facility] ([id number])[address] [place] [address] 82991 Hemoglobin (Bld) [Mass/Vol] 10.2 g/dL Low 11.7-15.5 [facility] Comment on above: Performed By: #### 1 9123-9, CBCA, CMP ####[facility] ([id number])[address] [place] [address] 74215 Lymphocytes (Bld) [#/Vol] 2.1 10*3/uL Normal 1.0-3.5 [facility] Comment on above: Performed By: #### 1 9123-9, CBCA, CMP ####[facility] ([id number])[address] [place] [address] 39764 Lymphocytes/100 WBC (Bld) 33.5 % Normal [facility] Comment on above: Performed By: #### 1 9123-9, CBCA, CMP ####[facility] ([id number])[address] [place] [address] 74281 MCH (RBC) [Entitic mass] 28.4 pg Normal 27-34 [facility] Comment on above: Performed By: #### 1 9123-9, CBCA, CMP ####[facility] ([id number])[address] [place] [address] 53730 MCHC (RBC) [Mass/Vol] 33.8 g/dL Normal 32-36 [facility] Comment on above: Performed By: #### 1 9123-9, CBCA, CMP ####[facility] ([id number])[address] [place] [address] 16265 MCV (RBC) [Entitic vol] 84 fL Normal 80-100 [facility] Comment on above: Performed By: #### 1 9123-9, CBCA, CMP ####[facility] ([id number])[address] [place] [address] 15778 Monocytes (Bld) [#/Vol] 0.6 10*3/uL Normal 0-0.9 [facility] Comment on above: Performed By: #### 1 9123-9, CBCA, CMP ####[facility] ([id number])[address] [place] [address] 94690 Monocytes/100 WBC (Bld) 10.1 % Normal [facility] Comment on above: Performed By: #### 1 9123-9, CBCA, CMP ####[facility] ([id number])[address] [place] [address] 88319 Neutrophils/100 WBC (Bld) 49.7 % Normal [facility] Comment on above: Performed By: #### 1 9123-9, CBCA, CMP ####[facility] ([id number])[address] [place] [address] 92398 Platelet mean volume (Bld) [Entitic vol] 8.8 fL Normal 7-12 [facility] Comment on above: Performed By: #### 1 9123-9, CBCA, CMP ####[facility] ([id number])[address] [place] [address] 54756 Platelets (Bld) [#/Vol] 224 10*3/uL Normal 150-450 [facility] Comment on above: Performed By: #### 1 9123-9, CBCA, CMP ####[facility] ([id number])[address] [place] [address] 19228 RBC COUNT 3.60 X10E12/L Low 3.80-5.20 [facility] Comment on above: Performed By: #### 1 9123-9, CBCA, CMP ####[facility] ([id number])[address] [place] [address] 05494 WBC (Bld) [#/Vol] 6.2 10*3/uL Normal 4.0-11.0 [facility] Comment on above: Performed By: #### 1 9123-9, CBCA, CMP ####[facility] ([id number])[address] [place] [address] 48815 COMPREHENSIVE METABOLIC PANE [facility] 10-30-2024 Albumin [Mass/Vol] 3.6 g/dL Normal 3.2-5.3 [facility] Comment on above: Performed By: #### 1 9123-9, CBCA, CMP ####[facility] ([id number])[address] [place] [address] 86785 ALP [Catalytic activity/Vol] 85 U/L Normal 39-130 [facility] Comment on above: Performed By: #### 1 9123-9, CBCA, CMP ####[facility] ([id number])[address] [place] [address] 76592 ALT [Catalytic activity/Vol] 15 U/L Normal 0-31 [facility] Comment on above: Performed By: #### 1 9123-9, CBCA, CMP ####[facility] ([id number])[address] [place] [address] 14379 Anion gap [Moles/Vol] 10 mmol/L Normal 5-15 [facility] Comment on above: Performed By: #### 1 9123-9, CBCA, CMP ####[facility] ([id number])[address] [place] [address] 01698 AST [Catalytic activity/Vol] 19 U/L Normal 0-41 [facility] Comment on above: Performed By: #### 1 9123-9, CBCA, CMP ####[facility] ([id number])[address] [place] [address] 60792 Bilirubin [Mass/Vol] 0.2 mg/dL Low 0.3-1.2 [facility] Comment on above: Performed By: #### 1 9123-9, CBCA, CMP ####[facility] ([id number])[address] [place] [address] 49080 Calcium [Mass/Vol] 8.8 mg/dL Normal 8.5-10.5 [facility] Comment on above: Performed By: #### 1 9123-9, CBCA, CMP ####[facility] ([id number])[address] [place] [address] 05278 Chloride [Moles/Vol] 103 mmol/L Normal 98-109 [facility] Comment on above: Performed By: #### 1 9123-9, CBCA, CMP ####[facility] ([id number])[address] [place] [address] 48196 CO2 [Moles/Vol] 23 mmol/L Normal 22-32 [facility] Comment on above: Performed By: #### 1 9123-9, CBCA, CMP ####[facility] ([id number])[address] [place] [address] 70752 Creatinine [Mass/Vol] 1.55 mg/dL High 0.40-1.00 [facility] Comment on above: Result Comment: METH OD TRACEABLE TO IDMS STANDARD Performed By: #### 1 9123-9, CBCA, CMP ####[facility] ([id number])[address] [place] [address] 61982 GFR/1.73 sq M.predicted among non-blacks MDRD (S/P/Bld) [Vol rate/Area] 34 mL/min/{1.73_m2} Low >59 [facility] Comment on above: Result Comment: Repo rted eGFR is based on theCKD-EPI 2020 equation that doesnot use a race coefficient. Performed By: #### 1 9123-9, CBCA, CMP ####[facility] ([id number])[address] [place] [address] 60317 Glucose [Mass/Vol] 234 mg/dL High 65-99 [facility] Comment on above: Performed By: #### 1 9123-9, CBCA, CMP ####[facility] ([id number])[address] [place] [address] 69030 Potassium [Moles/Vol] 4.2 mmol/L Normal 3.5-5.0 [facility] Comment on above: Performed By: #### 1 9123-9, CBCA, CMP ####[facility] ([id number])[address] [place] [address] 00753 Protein [Mass/Vol] 6.7 g/dL Normal 6.0-8.0 [facility] Comment on above: Performed By: #### 1 9123-9, CBCA, CMP ####[facility] ([id number])[address] [place] [address] 32270 Sodium [Moles/Vol] 136 mmol/L Normal 134-146 [facility] Comment on above: Performed By: #### 1 9123-9, CBCA, CMP ####[facility] ([id number])[address] [place] [address] 51051 Urea nitrogen [Mass/Vol] 33 mg/dL High 5-27 [facility] Comment on above: Performed By: #### 1 9123-9, CBCA, CMP ####[facility] ([id number])[address] [place] [address] 52267 Glucose Glucometer (BldC) [M ass/Vol]on 10-30-2024 Glucose [Mass/Vol] 169 mg/dL High 65-99 [facility] MAGNESIUMon 10-30-2024 Magnesium [Mass/Vol] 1.9 mg/dL Normal 1.8-2.6 [facility] Comment on above: Performed By: #### 1 23-9, CBCA, CMP ####[facility] ([id number])[address] [place] [address] 90753 CBC AND AUTO DIFFon 15 24 ABSOLUTE BASOPHIL 0.0 X10E9/L Normal 0.0-0.2 [facility] Comment on above: Performed By: #### C MP, CBCA, ####[facility] ([id number])[address] [place] [address] 47386 ABSOLUTE NEUTROPHIL 3.7 X10E9/L Normal 1.5-6.6 [facility] Comment on above: Performed By: #### C MP, CBCA, ####[facility] ([id number])[address] [place] [address] 78019 Basophils/100 WBC (Bld) 0.7 % Normal [facility] Comment on above: Performed By: #### C MP, CBCA, ####[facility] ([id number])[address] [place] [address] 23131 Eosinophils (Bld) [#/Vol] 0.3 10*3/uL Normal 0.0-0.4 [facility] Comment on above: Performed By: #### C MP, CBCA, ####[facility] ([id number])[address] [place] [address] 21935 Eosinophils/100 WBC (Bld) 4.3 % Normal [facility] Comment on above: Performed By: #### C MP, CBCA, ####[facility] ([id number])[address] [place] [address] 55493 Erythrocyte distribution width (RBC) [Ratio] 15.9 % High 11.5-15.0 [facility] Comment on above: Performed By: #### C FAITH CBCA, ####[facility] ([id number])[address] [place] [address] 64898 Hematocrit (Bld) [Volume fraction] 31.1 % Low 35-47 [facility] Comment on above: Performed By: #### C FAITH CBCA, ####[facility] ([id number])[address] [place] [address] 85306 Hemoglobin (Bld) [Mass/Vol] 10.4 g/dL Low 11.7-15.5 [facility] Comment on above: Performed By: #### C FAITH CBCA, ####[facility] ([id number])[address] [place] [address] 46754 Lymphocytes (Bld) [#/Vol] 2.0 10*3/uL Normal 1.0-3.5 [facility] Comment on above: Performed By: #### C FAITH CBCA, ####[facility] ([id number])[address] [place] [address] 87517 Lymphocytes/100 WBC (Bld) 29.4 % Normal [facility] Comment on above: Performed By: #### C FAITH CBCDanielle, ####[facility] ([id number])[address] [place] [address] 54487 MCH (RBC) [Entitic mass] 28.2 pg Normal 27-34 [facility] Comment on above: Performed By: #### C FAITH CBCA, ####[facility] ([id number])[address] [place] [address] 52066 MCHC (RBC) [Mass/Vol] 33.5 g/dL Normal 32-36 [facility] Comment on above: Performed By: #### C FAITH, CBCA, ####[facility] ([id number])[address] [place] [address] 88677 MCV (RBC) [Entitic vol] 84 fL Normal 80-100 [facility] Comment on above: Performed By: #### C FAITH, CBCA, ####[facility] ([id number])[address] [place] [address] 69999 Monocytes (Bld) [#/Vol] 0.8 10*3/uL Normal 0-0.9 [facility] Comment on above: Performed By: #### C FAITH, CBCA, ####[facility] ([id number])[address] [place] [address] 11386 Monocytes/100 WBC (Bld) 12.0 % Normal [facility] Comment on above: Performed By: #### C FAITH, CBCA, ####[facility] ([id number])[address] [place] [address] 47645 Neutrophils/100 WBC (Bld) 53.6 % Normal [facility] Comment on above: Performed By: #### C FAITH, CBCA, ####[facility] ([id number])[address] [place] [address] 16733 Platelet mean volume (Bld) [Entitic vol] 9.1 fL Normal 7-12 [facility] Comment on above: Performed By: #### C FAITH, CBCA, ####[facility] ([id number])[address] [place] [address] 37452 Platelets (Bld) [#/Vol] 244 10*3/uL Normal 150-450 [facility] Comment on above: Performed By: #### C FAITH, CBCA, ####[facility] ([id number])[address] [place] [address] 79368 RBC COUNT 3.69 X10E12/L Low 3.80-5.20 [facility] Comment on above: Performed By: #### C FAITH, CBCA, ####[facility] ([id number])[address] [place] [address] 69900 WBC (Bld) [#/Vol] 6.9 10*3/uL Normal 4.0-11.0 [facility] Comment on above: Performed By: #### C FAITH, CBCA, ####[facility] ([id number])[address] [place] [address] 88399 COMPREHENSIVE METABOLIC PANE [facility] 10-29-2024 Albumin [Mass/Vol] 3.6 g/dL Normal 3.2-5.3 [facility] Comment on above: Performed By: #### C FAITH, CBCA, ####[facility] ([id number])[address] [place] [address] 95498 ALP [Catalytic activity/Vol] 87 U/L Normal 39-130 [facility] Comment on above: Performed By: #### C FAITH, CBCA, ####[facility] ([id number])[address] [place] [address] 61036 ALT [Catalytic activity/Vol] 17 U/L Normal 0-31 [facility] Comment on above: Performed By: #### C FAITH, CBCA, ####[facility] ([id number])[address] [place] [address] 66969 Anion gap [Moles/Vol] 9 mmol/L Normal 5-15 [facility] Comment on above: Performed By: #### C FAITH, CBCA, ####[facility] ([id number])[address] [place] [address] [place] [address] AST [Catalytic activity/Vol] 21 U/L Normal 0-41 [facility] Comment on above: Performed By: #### C CARMEN CUEVAS, ####[facility] ([id number])[address] [place] [address] 01292 Bilirubin [Mass/Vol] 0.3 mg/dL Normal 0.3-1.2 [facility] Comment on above: Performed By: #### C CARMEN CUEVAS, ####[facility] ([id number])[address] [place] [address] 16107 Calcium [Mass/Vol] 8.7 mg/dL Normal 8.5-10.5 [facility] Comment on above: Performed By: #### C CARMEN CUEVAS, ####[facility] ([id number])[address] [place] [address] 17395 Chloride [Moles/Vol] 100 mmol/L Normal 98-109 [facility] Comment on above: Performed By: #### C CARMEN CUEVAS, ####[facility] ([id number])[address] [place] [address] 63142 CO2 [Moles/Vol] 25 mmol/L Normal 22-32 [facility] Comment on above: Performed By: #### CARMEN Maravilla MP, ####[facility] ([id number])[address] [place] [address] 78524 Creatinine [Mass/Vol] 1.75 mg/dL High 0.40-1.00 [facility] Comment on above: Result Comment: METH OD TRACEABLE TO IDMS STANDARD Performed By: #### C CARMEN CUEVAS, ####[facility] ([id number])[address] [place] [address] 44715 GFR/1.73 sq M.predicted among non-blacks MDRD (S/P/Bld) [Vol rate/Area] 29 mL/min/{1.73_m2} Low >59 [facility] Comment on above: Result Comment: Repo rted eGFR is based on theCKD-EPI 2020 equation that doesnot use a race coefficient. Performed By: #### C CARMEN CEUVAS, ####[facility] ([id number])[address] [place] [address], [place] [address] Glucose [Mass/Vol] 266 mg/dL High 65-99 [facility] Comment on above: Performed By: #### C CARMEN CUEVAS, ####[facility] ([id number])[address] [place] [address] 99597 Potassium [Moles/Vol] 4.1 mmol/L Normal 3.5-5.0 [facility] Comment on above: Performed By: #### C CARMEN CUEVAS, ####[facility] ([id number])[address] [place] [address], [place] [address] Protein [Mass/Vol] 6.9 g/dL Normal 6.0-8.0 [facility] Comment on above: Performed By: #### CARMEN Maravilla MP, ####[facility] ([id number])[address] [place] [address] [place] [address] Sodium [Moles/Vol] 134 mmol/L Normal 134-146 [facility] Comment on above: Performed By: #### C CARMEN CUEVAS, ####[facility] ([id number])[address] [place] [address] [place] [address] Urea nitrogen [Mass/Vol] 37 mg/dL High 5-27 [facility] Comment on above: Performed By: #### CARMEN Maravilla MP, ####[facility] ([id number])[address] [place] [address] 10011 Glucose Glucometer (BldC) [M ass/Vol]on 10-29-2024 Glucose [Mass/Vol] 206 mg/dL High 65-99 [facility] Glucose [Mass/Vol] 179 mg/dL High 65-99 [facility] Glucose [Mass/Vol] 339 mg/dL High 65-99 [facility] MAGNESIUMon 10-29-2024 Magnesium [Mass/Vol] 1.9 mg/dL Normal 1.8-2.6 [facility] Comment on above: Performed By: #### C MP, CBCA, 06281-2 ####[facility] ([id number])[address] [place] [address] 47506 CBC AND AUTO DIFFon 10-28-20 ABSOLUTE BASOPHIL 0.0 X10E9/L Normal 0.0-0.2 [facility] Comment on above: Performed By: #### C [facility], ####[facility] ([id number])[address] [place] [address] 46995 ABSOLUTE NEUTROPHIL 4.9 X10E9/L Normal 1.5-6.6 [facility] Comment on above: Performed By: #### C [place], CMP, ####[facility] ([id number])[address] [place] [address] 33108 Basophils/100 WBC (Bld) 0.4 % Normal [facility] Comment on above: Performed By: #### C [place], CMP, 95084-5 ####[facility] ([id number])[address] [place] [address] 98384 Eosinophils (Bld) [#/Vol] 0.1 10*3/uL Normal 0.0-0.4 [facility] Comment on above: Performed By: #### Renita HENSON, CMP, ####[facility] ([id number])[address] [place] [address] 01593 Eosinophils/100 WBC (Bld) 1.1 % Normal [facility] Comment on above: Performed By: #### Renita HENSON [facility], ####[facility] ([id number])[address] [place] [address] 36080 Erythrocyte distribution width (RBC) [Ratio] 15.5 % High 11.5-15.0 [facility] Comment on above: Performed By: #### Renita HENSON [facility], ####[facility] ([id number])[address] [place] [address] 00840 Hematocrit (Bld) [Volume fraction] 33.5 % Low 35-47 [facility] Comment on above: Performed By: #### Renita HENSON [facility], ####[facility] ([id number])[address] [place] [address] 13711 Hemoglobin (Bld) [Mass/Vol] 11.1 g/dL Low 11.7-15.5 [facility] Comment on above: Performed By: #### Renita HENSON [facility], ####[facility] ([id number])[address] [place] [address] 09120 Lymphocytes (Bld) [#/Vol] 2.3 10*3/uL Normal 1.0-3.5 [facility] Comment on above: Performed By: #### Renita HENSON [facility], ####[facility] ([id number])[address] [place] [address] 06122 Lymphocytes/100 WBC (Bld) 27.9 % Normal [facility] Comment on above: Performed By: #### Renita HENSON CMP, ####[facility] ([id number])[address] [place] [address] 25206 MCH (RBC) [Entitic mass] 27.9 pg Normal 27-34 [facility] Comment on above: Performed By: #### Renita HENSON CMP, ####[facility] ([id number])[address] [place] [address] 70817 MCHC (RBC) [Mass/Vol] 33.1 g/dL Normal 32-36 [facility] Comment on above: Performed By: #### Renita HENSON CMP, ####[facility] ([id number])[address] [place] [address] 31355 MCV (RBC) [Entitic vol] 84 fL Normal 80-100 [facility] Comment on above: Performed By: #### Renita HENSON CMP, ####[facility] ([id number])[address] [place] [address] 37840 Monocytes (Bld) [#/Vol] 1.0 10*3/uL High 0-0.9 [facility] Comment on above: Performed By: #### Renita HENSON CMP, ####[facility] ([id number])[address] [place] [address] 65545 Monocytes/100 WBC (Bld) 12.0 % Normal [facility] Comment on above: Performed By: #### Renita HENSON CMP, ####[facility] ([id number])[address] [place] [address] 90212 Neutrophils/100 WBC (Bld) 58.6 % Normal [facility] Comment on above: Performed By: #### Renita HENSON CMP, ####[facility] ([id number])[address] [place] [address] 33364 Platelet mean volume (Bld) [Entitic vol] 9.0 fL Normal 7-12 [facility] Comment on above: Performed By: #### Renita HENSON CMP, ####[facility] ([id number])[address] [place] [address] 45286 Platelets (Bld) [#/Vol] 241 10*3/uL Normal 150-450 [facility] Comment on above: Performed By: #### C BCA, CMP, 56156-4 ####[facility] ([id number])[address] [place] [address] 86592 RBC COUNT 3.97 X10E12/L Normal 3.80-5.20 [facility] Comment on above: Performed By: #### C BCA, CMP, 81894-2 ####[facility] ([id number])[address] [place] [address] 10406 WBC (Bld) [#/Vol] 8.3 10*3/uL Normal 4.0-11.0 [facility] Comment on above: Performed By: #### C BCA, CMP, 74051-3 ####[facility] ([id number])[address] [place] [address] 29324 COMPREHENSIVE METABOLIC PANE [facility] 10-28-2024 Albumin [Mass/Vol] 3.9 g/dL Normal 3.2-5.3 [facility] Comment on above: Performed By: #### C BCA, CMP, 35677-3 ####[facility] ([id number])[address] [place] [address] 71448 ALP [Catalytic activity/Vol] 95 U/L Normal 39-130 [facility] Comment on above: Performed By: #### C BCA, CMP, 55791-6 ####[facility] ([id number])[address] [place] [address] ALT [Catalytic activity/Vol] 15 U/L Normal 0-31 [facility] Comment on above: Performed By: #### C BCA, CMP, 82785-7 ####[facility] ([id number])[address] [place] [address], [place] [address] Anion gap [Moles/Vol] 11 mmol/L Normal 5-15 [facility] Comment on above: Performed By: #### C NATIVIDAD CMP, ####[facility] ([id number])[address] [place] [address], [place] [address] AST [Catalytic activity/Vol] 24 U/L Normal 0-41 [facility] Comment on above: Performed By: #### C NATIVIDAD CMP, ####[facility] ([id number])[address] [place] [address] Bilirubin [Mass/Vol] 0.5 mg/dL Normal 0.3-1.2 [facility] Comment on above: Performed By: #### Renita HENOSN CMP, ####[facility] ([id number])[address] [place] [address] [place] [address] Calcium [Mass/Vol] 9.5 mg/dL Normal 8.5-10.5 [facility] Comment on above: Performed By: #### C [facility], ####[facility] ([id number])[address] [place] [address] [place] [address] Chloride [Moles/Vol] 100 mmol/L Normal 98-109 [facility] Comment on above: Performed By: #### C NATIVIDAD CMP, ####[facility] ([id number])[address] [place] [address] [place] [address] CO2 [Moles/Vol] 23 mmol/L Normal 22-32 [facility] Comment on above: Performed By: #### C BCA CMP, ####[facility] ([id number])[address] [place] [address], [place] [address] Creatinine [Mass/Vol] 1.59 mg/dL High 0.40-1.00 [facility] Comment on above: Result Comment: METH OD TRACEABLE TO IDMS STANDARD Performed By: #### C RUBEN HENSON, ####[facility] ([id number])[address] [place] [address] GFR/1.73 sq M.predicted among non-blacks MDRD (S/P/Bld) [Vol rate/Area] 33 mL/min/{1.73_m2} Low >59 [facility] Comment on above: Result Comment: Repo rted eGFR is based on theCKD-EPI 2020 equation that doesnot use a race coefficient. Performed By: #### C RUBEN HENSON, ####[facility] ([id number])[address] [place] [address] 39468 Glucose [Mass/Vol] 162 mg/dL High 65-99 [facility] Comment on above: Performed By: #### C RUBEN HENSON, ####[facility] ([id number])[address] [place] [address] 94066 Potassium [Moles/Vol] 4.1 mmol/L Normal 3.5-5.0 [facility] Comment on above: Performed By: #### Renita HENSON CMP, ####[facility] ([id number])[address] [place] [address] 46191 Protein [Mass/Vol] 7.7 g/dL Normal 6.0-8.0 [facility] Comment on above: Performed By: #### C RUBEN HENSON, ####[facility] ([id number])[address] [place] [address] 87577 Sodium [Moles/Vol] 134 mmol/L Normal 134-146 [facility] Comment on above: Performed By: #### Renita HENSON CMP, ####[facility] ([id number])[address] [place] [address] 14809 Urea nitrogen [Mass/Vol] 24 mg/dL Normal 5-27 [facility] Comment on above: Performed By: #### C RUBEN HENSON, 15340-4 ####[facility] ([id number])[address] [place] [address] 27191 Glucose Glucometer (BldC) [M ass/Vol]on 10-28-2024 Glucose [Mass/Vol] 216 mg/dL High 65-99 [facility] MAGNESIUMon 10-28-2024 Magnesium [Mass/Vol] 1.8 mg/dL Normal 1.8-2.6 [facility] Comment on above: Performed By: #### C RUBEN HENSON, 50632-8 ####[facility] ([id number])[address] [place] [address] 22218 XR CHEST 1 VWon 10-28-2024 XR CHEST 1 VW Normal [facility] aPTT Coag (PPP) [Time]on aPTT Coag (Bld) [Time] 27 s Normal 26-37 [facility] Comment on above: Result Comment: NEW REFERENCE RANGE Performed By: #### 1 4979-9 ####[facility] ([id number])[address] [place] [address] 63662 CBC AND AUTO DIFFon 10-27-20 24 ABSOLUTE BASOPHIL 0.0 X10E9/L Normal 0.0-0.2 [facility] Comment on above: Performed By: #### C MP, CBCA ####[facility] ([id number])[address] [place] [address] 42205 ABSOLUTE NEUTROPHIL 8.4 X10E9/L High 1.5-6.6 [facility] Comment on above: Performed By: #### C MP, CBCA ####[facility] ([id number])[address] [place] [address] 82023 Basophils/100 WBC (Bld) 0.4 % Normal [facility] Comment on above: Performed By: #### C MP, CBCA ####[facility] ([id number])[address] [place] [address] 46688 Eosinophils (Bld) [#/Vol] 0.0 10*3/uL Normal 0.0-0.4 [facility] Comment on above: Performed By: #### C MP, CBCA ####[facility] ([id number])[address] [place] [address] 20807 Eosinophils/100 WBC (Bld) 0.1 % Normal [facility] Comment on above: Performed By: #### C MP, CBCA ####[facility] ([id number])[address] [place] [address] 08290 Erythrocyte distribution width (RBC) [Ratio] 15.7 % High 11.5-15.0 [facility] Comment on above: Performed By: #### C MP, CBCA ####[facility] ([id number])[address] [place] [address] 10317 Hematocrit (Bld) [Volume fraction] 36.1 % Normal 35-47 [facility] Comment on above: Performed By: #### C MP, CBCA ####[facility] ([id number])[address] [place] [address] 09890 Hemoglobin (Bld) [Mass/Vol] 11.8 g/dL Normal 11.7-15.5 [facility] Comment on above: Performed By: #### C MP, CBCA ####[facility] ([id number])[address] [place] [address] 53451 Lymphocytes (Bld) [#/Vol] 0.8 10*3/uL Low 1.0-3.5 [facility] Comment on above: Performed By: #### C MP, CBCA ####[facility] ([id number])[address] [place] [address] 28395 Lymphocytes/100 WBC (Bld) 8.2 % Normal [facility] Comment on above: Performed By: #### C MP, CBCA ####[facility] ([id number])[address] [place] [address] 06149 MCH (RBC) [Entitic mass] 27.6 pg Normal 27-34 [facility] Comment on above: Performed By: #### C MP, CBCA ####[facility] ([id number])[address] [place] [address] 46673 MCHC (RBC) [Mass/Vol] 32.8 g/dL Normal 32-36 [facility] Comment on above: Performed By: #### C MP, CBCA ####[facility] ([id number])[address] [place] [address] 20437 MCV (RBC) [Entitic vol] 84 fL Normal 80-100 [facility] Comment on above: Performed By: #### C MP, CBCA ####[facility] ([id number])[address] [place] [address] 39608 Monocytes (Bld) [#/Vol] 0.7 10*3/uL Normal 0-0.9 [facility] Comment on above: Performed By: #### C MP, CBCA ####[facility] ([id number])[address] [place] [address] 36409 Monocytes/100 WBC (Bld) 7.4 % Normal [facility] Comment on above: Performed By: #### C MP, CBCA ####[facility] ([id number])[address] [place] [address] [place] [address] Neutrophils/100 WBC (Bld) 83.9 % Normal [facility] Comment on above: Performed By: #### C MP, CBCA ####[facility] ([id number])[address] [place] [address] 57354 Platelet mean volume (Bld) [Entitic vol] 8.4 fL Normal 7-12 [facility] Comment on above: Performed By: #### C MP, CBCA ####[facility] ([id number])[address] [place] [address] 42147 Platelets (Bld) [#/Vol] 282 10*3/uL Normal 150-450 [facility] Comment on above: Performed By: #### C MP, CBCA ####[facility] ([id number])[address] [place] [address] 70152 RBC COUNT 4.29 X10E12/L Normal 3.80-5.20 [facility] Comment on above: Performed By: #### C FAITH, CBCA ####[facility] ([id number])[address] [place] [address] 70868 WBC (Bld) [#/Vol] 10.0 10*3/uL Normal 4.0-11.0 [facility] Comment on above: Performed By: #### C FAITH, CBCA ####[facility] ([id number])[address] [place] [address] 53809 COMPREHENSIVE METABOLIC PANE [facility] 10-27-2024 Albumin [Mass/Vol] 4.3 g/dL Normal 3.2-5.3 [facility] Comment on above: Performed By: #### C MP, CBCA ####[facility] ([id number])[address] [place] [address] 40257 ALP [Catalytic activity/Vol] 108 U/L Normal 39-130 [facility] Comment on above: Performed By: #### C MP, CBCA ####[facility] ([id number])[address], [place] [address] ALT [Catalytic activity/Vol] 17 U/L Normal 0-31 [facility] Comment on above: Performed By: #### C MP, CBCA ####[facility] ([id number])[address] [place] [address], [place] [address] Anion gap [Moles/Vol] 13 mmol/L Normal 5-15 [facility] Comment on above: Performed By: #### C MP, CBCA ####[facility] ([id number])[address] [place] [address], [place] [address] AST [Catalytic activity/Vol] 27 U/L Normal 0-41 [facility] Comment on above: Performed By: #### C MP, CBCA ####[facility] ([id number])[address] [place] [address], [place] [address] Bilirubin [Mass/Vol] 0.4 mg/dL Normal 0.3-1.2 [facility] Comment on above: Performed By: #### C MP, CBCA ####[facility] ([id number])[address] [place] [address], [place] [address] Calcium [Mass/Vol] 9.7 mg/dL Normal 8.5-10.5 [facility] Comment on above: Performed By: #### C MP, CBCA ####[facility] ([id number])[address] [place] [address], [place] [address] Chloride [Moles/Vol] 96 mmol/L Low 98-109 [facility] Comment on above: Performed By: #### C MP, CBCA ####[facility] ([id number])[address] [place] [address], [place] [address] CO2 [Moles/Vol] 25 mmol/L Normal 22-32 [facility] Comment on above: Performed By: #### C MP, CBCA ####[facility] ([id number])[address] [place] [address], [place] [address] Creatinine [Mass/Vol] 1.44 mg/dL High 0.40-1.00 [facility] Comment on above: Result Comment: METH OD TRACEABLE TO IDMS STANDARD Performed By: #### C CARMEN CUEVAS ####[facility] ([id number])[address] [place] [address] 85599 GFR/1.73 sq M.predicted among non-blacks MDRD (S/P/Bld) [Vol rate/Area] 37 mL/min/{1.73_m2} Low >59 [facility] Comment on above: Result Comment: Repo rted eGFR is based on theCKD-EPI 2020 equation that doesnot use a race coefficient. Performed By: #### C CARMEN CUEVAS ####[facility] ([id number])[address] [place] [address] 60925 Glucose [Mass/Vol] 137 mg/dL High 65-99 [facility] Comment on above: Performed By: #### C CARMEN CUEVAS ####[facility] ([id number])[address] [place] [address] 68484 Potassium [Moles/Vol] 3.8 mmol/L Normal 3.5-5.0 [facility] Comment on above: Performed By: #### C CARMEN CUEVAS ####[facility] ([id number])[address] [place] [address] [place] [address] Protein [Mass/Vol] 8.4 g/dL High 6.0-8.0 [facility] Comment on above: Performed By: #### C CARMEN CUEVAS ####[facility] ([id number])[address] [place] [address] 33489 Sodium [Moles/Vol] 134 mmol/L Normal 134-146 [facility] Comment on above: Performed By: #### C CARMEN CUEVAS ####[facility] ([id number])[address] [place] [address] 52184 Urea nitrogen [Mass/Vol] 22 mg/dL Normal 5-27 [facility] Comment on above: Performed By: #### C MP, CBCA ####[facility] ([id number])[address] [place] [address] ABDOMEN AND PELVIS WO CON Ton 10-27-2024 CT ABDOMEN AND PELVIS WO CONT Normal [facility] Glucose Glucometer (BldC) [M ass/Vol]on 10-27-2024 Glucose [Mass/Vol] 157 mg/dL High 65-99 [facility] Glucose [Mass/Vol] 117 mg/dL High 65-99 [facility] Lactate (P obed) [Moles/Vol]o n 10-27-2024 LACTATE W/REFLEX 1.8 mmol/L Normal 0.4-2.0 [facility] Comment on above: Result Comment: Resu lt did not trigger repeat Lactate,re-order if needed. Performed By: #### 3 2133-1 ####[facility] ([id number])[address] [place] [address] 54303 URINE CULTUREon 10-27-2024 Bacteria identified Cx Nom (U) CULTURE RESULTS 10-50,000 ORGANISMS/mL NORMAL UROGENITAL BAILEY Normal [facility] Comment on above: Performed By: #### 6 30-4 ####[facility] ([id number])[address] [facility], [address] [place] [address] URN MACROSCOPIC NURon 2023 BILIRUBIN MARYJO Negative Normal NEG [facility] Comment on above: Performed By: #### N UM ####[facility] ([id number])[address] [place] [address] 33565 BLOOD/HGB MARYJO MODERATE Abnormal NEG [facility] Comment on above: Performed By: #### N UM ####[facility] ([id number])[address] [place] [address] 84557 GLUCOSE MARYJO Negative Normal NEG [facility] Comment on above: Performed By: #### N UM ####[facility] ([id number])[address] [place] [address] 47609 KETONES MARYJO 15 mg/dL Abnormal NEG [facility] Comment on above: Performed By: #### N UM ####[facility] ([id number])[address] [place] [address] 60909 LEUKOCYTE ESTERASE MARYJO Small Abnormal NEG [facility] Comment on above: Performed By: #### N UM ####[facility] ([id number])[address] [place] [address] 98035 NITRITE MARYJO Negative Normal NEG [facility] Comment on above: Performed By: #### N UM ####[facility] ([id number])[address] [place] [address] 69097 PH MARYJO 5.5 Normal 5.0-8.5 [facility] Comment on above: Performed By: #### N UM ####[facility] ([id number])[address] [place] [address] 99900 PROTEIN MARYJO 100 mg/dL Abnormal NEG [facility] Comment on above: Performed By: #### N UM ####[facility] ([id number])[address] [place] [address] 86637 SPECIFIC GRAVITY MARYJO 1.025 Normal 1.003-1.[address] [place] [address] Comment on above: Performed By: #### N UM ####[facility] ([id number])[address] [place] [address] 92413 UROBILINOGEN MARYJO 0.2 eu/dL Normal <1.1 [facility] Comment on above: Performed By: #### N UM ####[facility] ([id number])[address] [place] [address] 01143 BASIC METABOLIC PANLon 10-11 Anion gap [Moles/Vol] 10 mmol/L Normal 5-15 [facility] Comment on above: Performed By: #### C NATIVIDAD, 62306-6, BMP ####[facility] ([id number])[address] [place] [address] 33548 Calcium [Mass/Vol] 9.4 mg/dL Normal 8.5-10.5 [facility] Comment on above: Performed By: #### C NATIVIDAD, 15776-1, BMP ####[facility] ([id number])[address] [place] [address] 33910 Chloride [Moles/Vol] 103 mmol/L Normal 98-109 [facility] Comment on above: Performed By: #### Renita HENSON, 54934-8, BMP ####[facility] ([id number])[address] [place] [address] 83470 CO2 [Moles/Vol] 23 mmol/L Normal 22-32 [facility] Comment on above: Performed By: #### Renita HENSON, 92053-1, BMP ####[facility] ([id number])[address] [place] [address] 79934 Creatinine [Mass/Vol] 1.49 mg/dL High 0.40-1.00 [facility] Comment on above: Result Comment: METH OD TRACEABLE TO IDMS STANDARD Performed By: #### C NATIVIDAD, 81494-1, BMP ####[facility] ([id number])[address] [place] [address] 16442 GFR/1.73 sq M.predicted among non-blacks MDRD (S/P/Bld) [Vol rate/Area] 36 mL/min/{1.73_m2} Low >59 [facility] Comment on above: Result Comment: Repo rted eGFR is based on theCKD-EPI 2020 equation that doesnot use a race coefficient. Performed By: #### Renita HENSON, 30190-3, BMP ####[facility] ([id number])[address] [place] [address] 46775 Glucose [Mass/Vol] 185 mg/dL High 65-99 [facility] Comment on above: Performed By: #### Renita HENSON, 39532-9, BMP ####[facility] ([id number])[address] [place] [address] 36049 Potassium [Moles/Vol] 4.5 mmol/L Normal 3.5-5.0 [facility] Comment on above: Result Comment: SPEC IMEN HEMOLYZED, RESULTS INCREASED Performed By: #### Renita HENSON, 13024-9, BMP ####[facility] ([id number])[address] [place] [address] 29723 Sodium [Moles/Vol] 136 mmol/L Normal 134-146 [facility] Comment on above: Performed By: #### Renita HENSON, 03804-3, BMP ####[facility] ([id number])[address] [place] [address] 95512 Urea nitrogen [Mass/Vol] 23 mg/dL Normal 5-27 [facility] Comment on above: Performed By: #### Renita HENSON 36505-0, BMP ####[facility] ([id number])[address] [place] [address] 12226 CBC AND AUTO DIFFon 10-11-20 24 ABSOLUTE BASOPHIL 0.1 X10E9/L Normal 0.0-0.2 [facility] Comment on above: Performed By: #### Renita HENSON, 59727-0, BMP ####[facility] ([id number])[address] [place] [address] 54305 ABSOLUTE NEUTROPHIL 5.5 X10E9/L Normal 1.5-6.6 [facility] Comment on above: Performed By: #### Renita HENSON 95507-0, BMP ####[facility] ([id number])[address] [place] [address] 85753 Basophils/100 WBC (Bld) 0.8 % Normal [facility] Comment on above: Performed By: #### Renita HENSON, 95151-3, BMP ####[facility] ([id number])[address] [place] [address] 40754 Eosinophils (Bld) [#/Vol] 0.2 10*3/uL Normal 0.0-0.4 [facility] Comment on above: Performed By: #### Renita HENSON 34578-6, BMP ####[facility] ([id number])[address] [place] [address] 71249 Eosinophils/100 WBC (Bld) 2.2 % Normal [facility] Comment on above: Performed By: #### Renita HENSON 46381-8, BMP ####[facility] ([id number])[address] [place] [address] 29584 Erythrocyte distribution width (RBC) [Ratio] 15.8 % High 11.5-15.0 [facility] Comment on above: Performed By: #### Renita HENSON 32388-4, BMP ####[facility] ([id number])[address] [place] [address] 61473 Hematocrit (Bld) [Volume fraction] 32.2 % Low 35-47 [facility] Comment on above: Performed By: #### Renita HENSON 04078-2, BMP ####[facility] ([id number])[address] [place] [address] 02392 Hemoglobin (Bld) [Mass/Vol] 10.7 g/dL Low 11.7-15.5 [facility] Comment on above: Performed By: #### Renita HENSON 37444-8, BMP ####[facility] ([id number])[address] [place] [address] 34417 Lymphocytes (Bld) [#/Vol] 1.9 10*3/uL Normal 1.0-3.5 [facility] Comment on above: Performed By: #### Renita HENSON, 56492-8, BMP ####[facility] ([id number])[address] [place] [address] 34395 Lymphocytes/100 WBC (Bld) 22.1 % Normal [facility] Comment on above: Performed By: #### Renita HENSON, 81785-7, BMP ####[facility] ([id number])[address] [place] [address] 84954 MCH (RBC) [Entitic mass] 28.1 pg Normal 27-34 [facility] Comment on above: Performed By: #### Renita HENSON 05607-4, BMP ####[facility] ([id number])[address] [place] [address] 69200 MCHC (RBC) [Mass/Vol] 33.1 g/dL Normal 32-36 [facility] Comment on above: Performed By: #### Renita HENSON, 35647-0, BMP ####[facility] ([id number])[address] [place] [address] 04105 MCV (RBC) [Entitic vol] 85 fL Normal 80-100 [facility] Comment on above: Performed By: #### Renita HENSON, 39837-0, BMP ####[facility] ([id number])[address] [place] [address] 45260 Monocytes (Bld) [#/Vol] 1.0 10*3/uL High 0-0.9 [facility] Comment on above: Performed By: #### Renita HENSON, 50216-6, BMP ####[facility] ([id number])[address] [place] [address] 07610 Monocytes/100 WBC (Bld) 11.6 % Normal [facility] Comment on above: Performed By: #### Renita HENSON, 88825-9, BMP ####[facility] ([id number])[address] [place] [address] 64011 Neutrophils/100 WBC (Bld) 63.3 % Normal [facility] Comment on above: Performed By: #### Renita HENSON 81315-9, BMP ####[facility] ([id number])[address] [place] [address] 16037 Platelet mean volume (Bld) [Entitic vol] 8.4 fL Normal 7-12 [facility] Comment on above: Performed By: #### Renita HENSON 35172-0, BMP ####[facility] ([id number])[address] [place] [address] 10547 Platelets (Bld) [#/Vol] 368 10*3/uL Normal 150-450 [facility] Comment on above: Performed By: #### Renita HENSON 77444-5, BMP ####[facility] ([id number])[address] [place] [address] 36308 RBC COUNT 3.79 X10E12/L Low 3.80-5.20 [facility] Comment on above: Performed By: #### Renita HENSON 45274-4, BMP ####[facility] ([id number])[address] [place] [address] 92255 WBC (Bld) [#/Vol] 8.7 10*3/uL Normal 4.0-11.0 [facility] Comment on above: Performed By: #### Renita HENSON, 14967-7, BMP ####[facility] ([id number])[address] [place] [address] ABDOMEN AND PELVIS WO CON Ton 10-11-2024 CT ABDOMEN AND PELVIS WO CONT Normal [facility] Troponin I.cardiac High sens itivity method [Mass/Vol]on 10-11-2024 1 HOUR TROP I, HIGH SENSITIVITY 20 ng/L High <16 [facility] Comment on above: Result Comment: Elev ations of hs-Troponin may be due to causesother than myocardial ischemia.Recommend serial hs-Troponin testing be performed.For the initial evaluation and management of chestpain patients, refer to the algorithms linked below.Emergency Patient:[email or web address] Performed By: #### 8 9579-7 ####[facility] ([id number])[address] [place] [address] 54674 TROPONIN I, HIGH SENSITIVITY 21 ng/L High <16 [facility] Comment on above: Result Comment: Elev ations of hs-Troponin may be due to causesother than myocardial ischemia.Recommend serial hs-Troponin testing be performed.For the initial evaluation and management of chestpain patients, refer to the algorithms linked below.Emergency Patient:[email or web address] Performed By: #### C BCA, 13468-5, BMP ####[facility] ([id number])[address] [place] [address] 79991 URINE CULTUREon 10-10-2024 Bacteria identified Cx Nom (U) CULTURE RESULTS MULTIPLE SPECIES PRESENT. PROBABLE COLLECTION CONTAMINATION. SUGGEST REPEAT SPECIMEN. Normal [facility] Comment on above: Performed By: #### 6 30-4 ####[facility] ([id number])[address] [facility], [address], [place] [address] URN MACROSCOPIC NURon 2023 BILIRUBIN MARYJO Negative Normal NEG [facility] Comment on above: Performed By: #### N UM ####[facility] ([id number])[address] [place] [address], [place] [address] BLOOD/HGB MARYJO Small Abnormal NEG [facility] Comment on above: Performed By: #### N UM ####[facility] ([id number])[address] [place] [address], [place] [address] GLUCOSE MARYJO Negative Normal NEG [facility] Comment on above: Performed By: #### N UM ####[facility] ([id number])[address] [place] [address], [place] [address] KETONES MARYJO Trace Abnormal NEG [facility] Comment on above: Performed By: #### N UM ####[facility] ([id number])[address] [place] [address], [place] [address] LEUKOCYTE ESTERASE MARYJO Large Abnormal NEG [facility] Comment on above: Performed By: #### N UM ####[facility] ([id number])[address] [place] [address], [place] [address] NITRITE MARYJO Positive Abnormal NEG [facility] Comment on above: Performed By: #### N UM ####[facility] ([id number])[address] [place] [address], [place] [address] PH MARYJO 8.5 Normal 5.0-8.5 [facility] Comment on above: Performed By: #### N UM ####[facility] ([id number])[address] [place] [address], [place] [address] PROTEIN MARYJO >=300 Abnormal NEG [facility] Comment on above: Performed By: #### N UM ####[facility] ([id number])[address] [place] [address] [place] [address] SPECIFIC GRAVITY MARYJO 1.015 Normal 1.003-1.03 5 [facility] Comment on above: Performed By: #### N UM ####[facility] ([id number])[address] [place] [address] 65389 UROBILINOGEN MARYJO 0.2 eu/dL Normal <1.1 [facility] Comment on above: Performed By: #### N UM ####[facility] ([id number])[address] [place] [address] 14992 CBC AND AUTO DIFFon 10-10-20 24 ABSOLUTE BASOPHIL 0.0 X10E9/L Normal 0.0-0.2 [facility] Comment on above: Performed By: #### C MP, CBCA, ####[facility] ([id number])[address] [place] [address] 69211 ABSOLUTE NEUTROPHIL 6.0 X10E9/L Normal 1.5-6.6 [facility] Comment on above: Performed By: #### C MP, CBCA, ####[facility] ([id number])[address] [place] [address] 55925 Basophils/100 WBC (Bld) 0.3 % Normal [facility] Comment on above: Performed By: #### C MP, CBCA, ####[facility] ([id number])[address] [place] [address] 86545 Eosinophils (Bld) [#/Vol] 0.3 10*3/uL Normal 0.0-0.4 [facility] Comment on above: Performed By: #### C MP, CBCA, ####[facility] ([id number])[address] [place] [address] 98111 Eosinophils/100 WBC (Bld) 2.7 % Normal [facility] Comment on above: Performed By: #### C FAITH CBCA, ####[facility] ([id number])[address] [place] [address] 00704 Erythrocyte distribution width (RBC) [Ratio] 15.9 % High 11.5-15.0 [facility] Comment on above: Performed By: #### C FAITH CBCA, ####[facility] ([id number])[address] [place] [address] 33153 Hematocrit (Bld) [Volume fraction] 29.0 % Low 35-47 [facility] Comment on above: Performed By: #### C FAITH CBCA, ####[facility] ([id number])[address] [place] [address] 57420 Hemoglobin (Bld) [Mass/Vol] 9.5 g/dL Low 11.7-15.5 [facility] Comment on above: Performed By: #### C FAITH CBCA, ####[facility] ([id number])[address] [place] [address] 12297 Lymphocytes (Bld) [#/Vol] 3.0 10*3/uL Normal 1.0-3.5 [facility] Comment on above: Performed By: #### C FAITH CBCA, ####[facility] ([id number])[address] [place] [address] 44921 Lymphocytes/100 WBC (Bld) 28.8 % Normal [facility] Comment on above: Performed By: #### C FAITH, CBCA, ####[facility] ([id number])[address] [place] [address] 32351 MCH (RBC) [Entitic mass] 27.7 pg Normal 27-34 [facility] Comment on above: Performed By: #### C MP, CBCA, ####[facility] ([id number])[address] [place] [address] 28888 MCHC (RBC) [Mass/Vol] 32.7 g/dL Normal 32-36 [facility] Comment on above: Performed By: #### C FAITH, CBCA, ####[facility] ([id number])[address] [place] [address] 56585 MCV (RBC) [Entitic vol] 85 fL Normal 80-100 [facility] Comment on above: Performed By: #### C FAITH, CBCA, ####[facility] ([id number])[address] [place] [address] 04525 Monocytes (Bld) [#/Vol] 1.0 10*3/uL High 0-0.9 [facility] Comment on above: Performed By: #### C FAITH, CBCA, ####[facility] ([id number])[address] [place] [address] 42105 Monocytes/100 WBC (Bld) 9.8 % Normal [facility] Comment on above: Performed By: #### C FAITH, CBCA, ####[facility] ([id number])[address] [place] [address] 57001 Neutrophils/100 WBC (Bld) 58.4 % Normal [facility] Comment on above: Performed By: #### C FAITH, CBCA, ####[facility] ([id number])[address] [place] [address] 49609 Platelet mean volume (Bld) [Entitic vol] 8.7 fL Normal 7-12 [facility] Comment on above: Performed By: #### C FAITH, CBCA, ####[facility] ([id number])[address] [place] [address] 88517 Platelets (Bld) [#/Vol] 189 10*3/uL Normal 150-450 [facility] Comment on above: Performed By: #### C FAITH CBCDanielle, ####[facility] ([id number])[address] [place] [address] 03005 RBC COUNT 3.43 X10E12/L Low 3.80-5.20 [facility] Comment on above: Performed By: #### C FAITH CBCDanielle, ####[facility] ([id number])[address] [place] [address] 79588 WBC (Bld) [#/Vol] 10.2 10*3/uL Normal 4.0-11.0 [facility] Comment on above: Performed By: #### C FAITH CBCDanielle, ####[facility] ([id number])[address] [place] [address] 95053 COMPREHENSIVE METABOLIC PANE Dickson 08-24-2024 Albumin [Mass/Vol] 3.0 g/dL Low 3.2-5.3 [facility] Comment on above: Performed By: #### C FAITH CBCA, ####[facility] ([id number])[address] [place] [address] 50789 ALP [Catalytic activity/Vol] 70 U/L Normal 39-130 [facility] Comment on above: Performed By: #### C FAITH CBCA, ####[facility] ([id number])[address] [place] [address] 50497 ALT [Catalytic activity/Vol] 15 U/L Normal 0-31 [facility] Comment on above: Performed By: #### C FAITH CBCA, ####[facility] ([id number])[address], [place] [address] Anion gap [Moles/Vol] 7 mmol/L Normal 5-15 [facility] Comment on above: Performed By: #### C CARMEN CUEVAS, ####[facility] ([id number])[address] [place] [address], [place] [address] AST [Catalytic activity/Vol] 20 U/L Normal 0-41 [facility] Comment on above: Performed By: #### C CARMEN CUEVAS, ####[facility] ([id number])[address] [place] [address] 26372 Bilirubin [Mass/Vol] 0.8 mg/dL Normal 0.3-1.2 [facility] Comment on above: Performed By: #### C CARMEN CUEVAS, ####[facility] ([id number])[address] [place] [address] [place] [address] Calcium [Mass/Vol] 8.4 mg/dL Low 8.5-10.5 [facility] Comment on above: Performed By: #### C CARMEN CUEVAS, ####[facility] ([id number])[address] [place] [address] [place] [address] Chloride [Moles/Vol] 105 mmol/L Normal 98-109 [facility] Comment on above: Performed By: #### C CARMEN CUEVAS, ####[facility] ([id number])[address] [place] [address] [place] [address] CO2 [Moles/Vol] 24 mmol/L Normal 22-32 [facility] Comment on above: Performed By: #### C CARMEN CUEVAS, ####[facility] ([id number])[address] [place] [address], [place] [address] Creatinine [Mass/Vol] 1.36 mg/dL High 0.40-1.00 [facility] Comment on above: Result Comment: METH OD TRACEABLE TO IDMS STANDARD Performed By: #### C CARMEN CUEVAS, ####[facility] ([id number])[address] [place] [address] 60383 GFR/1.73 sq M.predicted among non-blacks MDRD (S/P/Bld) [Vol rate/Area] 40 mL/min/{1.73_m2} Low >59 [facility] Comment on above: Result Comment: Repo rted eGFR is based on theCKD-EPI 2020 equation that doesnot use a race coefficient. Performed By: #### C CARMEN CUEVAS, ####[facility] ([id number])[address] [place] [address] 94180 Glucose [Mass/Vol] 215 mg/dL High 65-99 [facility] Comment on above: Performed By: #### C CARMEN CUEVAS, ####[facility] ([id number])[address] [place] [address] 49014 Potassium [Moles/Vol] 4.7 mmol/L Normal 3.5-5.0 [facility] Comment on above: Performed By: #### C CARMEN CUEVAS, ####[facility] ([id number])[address] [place] [address] 54114 Protein [Mass/Vol] 6.0 g/dL Normal 6.0-8.0 [facility] Comment on above: Performed By: #### C CARMEN CUEVAS, ####[facility] ([id number])[address] [place] [address] 22768 Sodium [Moles/Vol] 136 mmol/L Normal 134-146 [facility] Comment on above: Performed By: #### C CARMEN CUEVAS, ####[facility] ([id number])[address] [place] [address] 08619 Urea nitrogen [Mass/Vol] 16 mg/dL Normal 5-27 [facility] Comment on above: Performed By: #### C MP, CBCA, ####[facility] ([id number])[address] [place] [address] 25448 Glucose Glucometer (BldC) [M ass/Vol]on 08-24-2024 Glucose [Mass/Vol] 358 mg/dL High 65-99 [facility] MAGNESIUMon 08-24-2024 Magnesium [Mass/Vol] 2.5 mg/dL Normal 1.8-2.6 [facility] Comment on above: Performed By: #### C MP, CBCA, ####[facility] ([id number])[address] [place] [address] 27552 BLOOD CULTUREon 08-23-2024 Bacteria identified Aer cx Nom (Bld) SPECIMEN NOTES L HAND CULTURE RESULTS NO GROWTH 5 DAYS Normal [facility] Comment on above: Performed By: #### 1 7928-3 ####[facility] ([id number])[address] [place] [address] 81591 Bacteria identified Aer cx Nom (Bld) SPECIMEN NOTES R HAND SOV CULTURE RESULTS NO GROWTH 5 DAYS Normal [facility] Comment on above: Performed By: #### 1 7928-3 ####[facility] ([id number])[address] [place] [address], [address] [address] CBC AND AUTO DIFFon 08-23-20 24 Band form neutrophils/100 WBC (Bld) 1.0 % Normal [facility] Comment on above: Performed By: #### 2 639-3, 2157-6, CBCA, CMP, 3040-3, 08416-5, 42429-1, 56016-3, 5643-2 ####[facility] ([id number])[address] [place] [address] 04087 Erythrocyte distribution width (RBC) [Ratio] 15.7 % High 11.5-15.0 [facility] Comment on above: Performed By: #### 2 639-3, 2156-6, CBCA, CMP, 3040-3, 25268-6, 24586-0, 86672-8, 5643-2 ####[facility] ([id number])[address] [place] [address] 18429 Hematocrit (Bld) [Volume fraction] 36.1 % Normal 35-47 [facility] Comment on above: Performed By: #### 2 639-3, 6, CBCA, CMP, 3040-3, 50434-4, 63230-2, 82663-5, 5643-2 ####[facility] ([id number])[address] [place] [address] 03390 Hemoglobin (Bld) [Mass/Vol] 11.5 g/dL Low 11.7-15.5 [facility] Comment on above: Performed By: #### 2 639-3, 6, CBCA, CMP, 3040-3, 71870-6, 89822-1, 71310-9, 5643-2 ####[facility] ([id number])[address] [place] [address] 99451 LYMPHOCYTE, ATYPICAL 1.0 % Normal [facility] Comment on above: Performed By: #### 2 639-3, 6, CBCA, CMP, 3040-3, 53642-9, 48504-4, 77550-9, 5643-2 ####[facility] ([id number])[address] [place] [address] 38625 Lymphocytes (Bld) [#/Vol] 2.6 10*3/uL Normal 1.0-3.5 [facility] Comment on above: Performed By: #### 2 639-3, 6, CBCA, CMP, 3040-3, 39253-0, 46734-7, 16610-7, 5643-2 ####[facility] ([id number])[address] [place] [address] 76971 Lymphocytes/100 WBC (Bld) 18.0 % Normal [facility] Comment on above: Performed By: #### 2 639-3, 2156-6, CBCA, CMP, 3040-3, 80100-9, 90981-1, 28111-6, 5643-2 ####[facility] ([id number])[address] [place] [address] 47562 MCH (RBC) [Entitic mass] 27.2 pg Normal 27-34 [facility] Comment on above: Performed By: #### 2 639-3, 2156-6, CBCA, CMP, 3040-3, 83793-7, 70676-6, 30580-6, 5643-2 ####[facility] ([id number])[address] [place] [address] 12166 MCHC (RBC) [Mass/Vol] 32.0 g/dL Normal 32-36 [facility] Comment on above: Performed By: #### 2 639-3, 6, CBCA, CMP, 3040-3, 99265-6, 81030-6, 48709-0, 5643-2 ####[facility] ([id number])[address] [place] [address] 87132 MCV (RBC) [Entitic vol] 85 fL Normal 80-100 [facility] Comment on above: Performed By: #### 2 639-3, 2156-6, CBCA, CMP, 3040-3, 62450-4, 51164-4, 54291-5, 5643-2 ####[facility] ([id number])[address] [place] [address] 42537 Monocytes (Bld) [#/Vol] 0.8 10*3/uL Normal 0-0.9 [facility] Comment on above: Performed By: #### 2 639-3, 2156-6, CBCA, CMP, 3040-3, 22728-3, 22911-2, 51539-3, 5643-2 ####[facility] ([id number])[address] [place] [address] 79680 Monocytes/100 WBC (Bld) 6.0 % Normal [facility] Comment on above: Performed By: #### 2 639-3, 6, CBCA, CMP, 3040-3, 46165-6, 91859-3, 57807-5, 5643-2 ####[facility] ([id number])[address] [place] [address] 67534 MYELOCYTE 1.0 % Normal [facility] Comment on above: Performed By: #### 2 639-3, 2157-04, CBCA, CMP, 3040-3, 16726-2, 14033-0, 34613-4, 5643-2 ####[facility] ([id number])[address] [place] [address] 46533 Neutrophils (Bld) [#/Vol] 10.5 10*3/uL High 1.5-6.6 [facility] Comment on above: Performed By: #### 2 639-3, 6, CBCA, CMP, 3040-3, 33597-4, 69722-4, 23942-2, 5643-2 ####[facility] ([id number])[address] [place] [address] 60341 OVALOCYTE 1+ Abnormal NONE [facility] Comment on above: Performed By: #### 2 639-3, 6, CBCA, CMP, 3040-3, 79458-4, 13084-3, 84823-9, 5643-2 ####[facility] ([id number])[address] [place] [address] 33493 Platelet mean volume (Bld) [Entitic vol] 8.3 fL Normal 7-12 [facility] Comment on above: Performed By: #### 2 639-3, 2156-6, CBCA, CMP, 3040-3, 21074-9, 57455-8, 22803-4, 5643-2 ####[facility] ([id number])[address] [place] [address] 95153 Platelets (Bld) [#/Vol] 262 10*3/uL Normal 150-450 [facility] Comment on above: Performed By: #### 2 639-3, 6, CBCA, CMP, 3040-3, 16321-8, 73637-4, 61567-5, 5643-2 ####[facility] ([id number])[address] [place] [address] 22037 RBC COUNT 4.25 X10E12/L Normal 3.80-5.20 [facility] Comment on above: Performed By: #### 2 639-3, 6, CBCA, CMP, 3040-3, 78431-5, 94116-0, 02851-0, 5643-2 ####[facility] ([id number])[address] [place] [address] 50740 SEG NEUTROPHIL 73.0 % Normal [facility] Comment on above: Performed By: #### 2 639-3, 6, CBCA, CMP, 3040-3, 75322-8, 35629-2, 50077-5, 5643-2 ####[facility] ([id number])[address] [place] [address] 88778 TOXIC GRANULATION 1+ Abnormal NONE [facility] Comment on above: Performed By: #### 2 639-3, 2156-6, CBCA, CMP, 3040-3, 06224-2, 57422-6, 06547-8, 5643-2 ####[facility] ([id number])[address] [place] [address] 04740 WBC (Bld) [#/Vol] 14.0 10*3/uL High 4.0-11.0 [facility] Comment on above: Performed By: #### 2 639-3, 2156-6, CBCA, CMP, 3040-3, 55252-4, 77274-5, 51599-5, 5643-2 ####[facility] ([id number])[address] [place] [address] 29140 CK [Catalytic activity/Vol]o n 08-23-2024 CPK 48 U/L Normal 24-170 [facility] Comment on above: Performed By: #### 2 639-3, 6, CBCA, CMP, 3040-3, 52122-5, 50426-6, 62776-9, 5643-2 ####[facility] ([id number])[address] [place] [address] 77616 COMPREHENSIVE METABOLIC PANE Dickson 08-23-2024 Albumin [Mass/Vol] 3.8 g/dL Normal 3.2-5.3 [facility] Comment on above: Performed By: #### 2 639-3, 6, CBCA, CMP, 3040-3, 77226-8, 73682-2, 51273-6, 5643-2 ####[facility] ([id number])[address] [place] [address] 27558 ALP [Catalytic activity/Vol] 88 U/L Normal 39-130 [facility] Comment on above: Performed By: #### 2 639-3, 2156-6, CBCA, CMP, 3040-3, 19717-4, 27737-1, 60772-4, 5643-2 ####[facility] ([id number])[address] [place] [address] 79494 ALT [Catalytic activity/Vol] 19 U/L Normal 0-31 [facility] Comment on above: Performed By: #### 2 639-3, 2156-6, CBCA, CMP, 3040-3, 48054-0, 30580-7, 37499-4, 5643-2 ####[facility] ([id number])[address] [place] [address] 82568 Anion gap [Moles/Vol] 11 mmol/L Normal 5-15 [facility] Comment on above: Performed By: #### 2 639-3, 2156-6, CBCA, CMP, 3040-3, 20737-9, 53432-9, 88764-4, 5643-2 ####[facility] ([id number])[address] [place] [address] 89123 AST [Catalytic activity/Vol] 20 U/L Normal 0-41 [facility] Comment on above: Performed By: #### 2 639-3, 6, CBCA, CMP, 3040-3, 14832-7, 84349-2, 65078-7, 5643-2 ####[facility] ([id number])[address] [place] [address] 76766 Bilirubin [Mass/Vol] 0.6 mg/dL Normal 0.3-1.2 [facility] Comment on above: Performed By: #### 2 639-3, 6, CBCA, CMP, 3040-3, 70448-1, 91002-9, 48773-4, 5643-2 ####[facility] ([id number])[address] [place] [address] 70766 Calcium [Mass/Vol] 8.8 mg/dL Normal 8.5-10.5 [facility] Comment on above: Performed By: #### 2 639-3, 2157-04, CBCA, CMP, 3040-3, 73960-7, 81697-7, 88402-0, 5643-2 ####[facility] ([id number])[address] [place] [address] 60792 Chloride [Moles/Vol] 102 mmol/L Normal 98-109 [facility] Comment on above: Performed By: #### 2 639-3, 6, CBCA, CMP, 3040-3, 64051-1, 15439-8, 70235-9, 5643-2 ####[facility] ([id number])[address] [place] [address] 45215 CO2 [Moles/Vol] 25 mmol/L Normal 22-32 [facility] Comment on above: Performed By: #### 2 639-3, 2157-04, CBCA, CMP, 3040-3, 00117-9, 88557-4, 20010-9, 5643-2 ####[facility] ([id number])[address] [place] [address] 97713 Creatinine [Mass/Vol] 1.29 mg/dL High 0.40-1.00 [facility] Comment on above: Result Comment: METH OD TRACEABLE TO IDMS STANDARD Performed By: #### 2 639-3, 2157-04, CBCA, CMP, 3040-3, 86032-2, 88613-5, 75305-5, 5643-2 ####[facility] ([id number])[address] [place] [address] 62541 GFR/1.73 sq M.predicted among non-blacks MDRD (S/P/Bld) [Vol rate/Area] 42 mL/min/{1.73_m2} Low >59 [facility] Comment on above: Result Comment: Repo rted eGFR is based on theCKD-EPI 2020 equation that doesnot use a race coefficient. Performed By: #### 2 639-3, 2157-6, CBCA, CMP, 3040-3, 67065-4, 40395-1, 41166-5, 5643-2 ####[facility] ([id number])[address] [place] [address] 77548 Glucose [Mass/Vol] 79 mg/dL Normal 65-99 [facility] Comment on above: Performed By: #### 2 639-3, 2156-6, CBCA, CMP, 3040-3, 55903-0, 26228-5, 73265-3, 5643-2 ####[facility] ([id number])[address] [place] [address] 11455 Potassium [Moles/Vol] 3.3 mmol/L Low 3.5-5.0 [facility] Comment on above: Performed By: #### 2 639-3, 6, CBCA, CMP, 3040-3, 23000-0, 25142-4, 42676-0, 5643-2 ####[facility] ([id number])[address] [place] [address] 71242 Protein [Mass/Vol] 7.5 g/dL Normal 6.0-8.0 [facility] Comment on above: Performed By: #### 2 639-3, 2156-6, CBCA, CMP, 3040-3, 45442-0, 37540-0, 83321-9, 5643-2 ####[facility] ([id number])[address] [place] [address] 67944 Sodium [Moles/Vol] 138 mmol/L Normal 134-146 [facility] Comment on above: Performed By: #### 2 639-3, 2156-6, CBCA, CMP, 3040-3, 66016-8, 87099-3, 25705-4, 5643-2 ####[facility] ([id number])[address] [place] [address] 63841 Urea nitrogen [Mass/Vol] 22 mg/dL Normal 5-27 [facility] Comment on above: Performed By: #### 2 639-3, 2157-6, CBCA, CMP, 3040-3, 74054-9, 29739-5, 27447-1, 5643-2 ####[facility] ([id number])[address] [place] [address] BRAIN WO CONTon CT BRAIN WO CONT Normal [facility] ETHANOLon 08-23-2024 Ethanol [Mass/Vol] mg/dL Normal 0.00-0.08 [facility] Comment on above: Result Comment: This report is intended for use in clinicalmonitoring or management of patients. Performed By: #### 2 639-3, 2157-6, CBCA, CMP, 3040-3, 30397-6, 49552-1, 60839-4, 5643-2 ####[facility] ([id number])[address] [place] [address]11 Glucose Glucometer (BldC) [M ass/Vol]on 08-23-2024 Glucose [Mass/Vol] 267 mg/dL High 65-99 [facility] Glucose [Mass/Vol] 279 mg/dL High 65-99 [facility] Glucose [Mass/Vol] 298 mg/dL High 65-99 [facility] Glucose [Mass/Vol] 235 mg/dL High 65-99 [facility] Glucose [Mass/Vol] 141 mg/dL High 65-99 [facility] Glucose [Mass/Vol] 101 mg/dL High 65-99 [facility] Glucose [Mass/Vol] 83 mg/dL Normal 65-99 [facility] Glucose [Mass/Vol] 93 mg/dL Normal 65-99 [facility] Glucose [Mass/Vol] 144 mg/dL High 65-99 [facility] Glucose [Mass/Vol] 61 mg/dL Low 65-99 [facility] Glucose [Mass/Vol] 82 mg/dL Normal 65-99 [facility] Glucose [Mass/Vol] 176 mg/dL High 65-99 [facility] Glucose [Mass/Vol] 85 mg/dL Normal 65-99 [facility] Glucose [Mass/Vol] 91 mg/dL Normal 65-99 [facility] Glucose [Mass/Vol] 109 mg/dL High 65-99 [facility] Glucose [Mass/Vol] 55 mg/dL Low 65-99 [facility] LIPASEon 08-23-2024 Lipase [Catalytic activity/Vol] 30 U/L Normal 17-40 [facility] Comment on above: Performed By: #### 2 639-3, 2157-6, CBCA, CMP, 3040-3, 47749-0, 16674-2, 96982-8, 5643-2 ####[facility] ([id number])[address] [place] [address] 46114 Lactate (P obed) [Moles/Vol]o n 08-23-2024 Lactate [Moles/Vol] 2.0 mmol/L Normal 0.4-2.0 [facility] Comment on above: Performed By: #### 3 2133-1 ####[facility] ([id number])[address] [place] [address] 96747 LACTATE W/REFLEX 2.9 mmol/L High 0.4-2.0 [facility] Comment on above: Performed By: #### 3 2133-1 ####[facility] ([id number])[address] [place] [address]99 MAGNESIUMon 08-23-2024 Magnesium [Mass/Vol] 2.7 mg/dL High 1.8-2.6 [facility] Comment on above: Performed By: #### 1 9123-9, THYR ####[facility] ([id number])[address] [place] [address] 03970 Magnesium [Mass/Vol] 1.6 mg/dL Low 1.8-2.6 [facility] Comment on above: Performed By: #### 2 639-3, 2156-6, CBCA, CMP, 3040-3, 49725-3, 00004-6, 27122-0, 5643-2 ####[facility] ([id number])[address] [place] [address] 42535 Myoglobin [Mass/Vol]on 08-23 SERUM MYOGLOBIN 97.6 ng/mL High 14.3-65.8 [facility] Comment on above: Performed By: #### 2 639-3, 6, CBCA, CMP, 3040-3, 64434-0, 52511-7, 58429-1, 5643-2 ####[facility] ([id number])[address] [place] [address] 95424 Natriuretic peptide B [Mass/ Vol]on 08-23-2024 Natriuretic peptide B (Bld) [Mass/Vol] 66 pg/mL Normal <100.0 [facility] Comment on above: Performed By: #### 2 639-3, 6, CBCA, CMP, 3040-3, 72146-5, 47237-7, 07115-4, 5643-2 ####[facility] ([id number])[address] [place] [address] 47461 POTASSIUMon 08-23-2024 Potassium [Moles/Vol] 5.4 mmol/L High 3.5-5.0 [facility] Comment on above: Performed By: #### 2 823-3 ####[facility] ([id number])[address] [place] [address] 13135 PROTIME AND INRon 08-23-2024 INR Coag (PPP) [Relative time] 1.0 {INR} Normal 0.8-1.1 [facility] Comment on above: Performed By: #### P INR, 70719-4 ####[facility] ([id number])[address] [place] [address] 53132 PT Coag (PPP) [Time] 11.7 s Normal 9.8-13.2 [facility] Comment on above: Result Comment: NEW REFERENCE RANGE Performed By: #### P INR, 25469-0 ####[facility] ([id number])[address] [place] [address] 26202 THYROID PROFILEon 08-23-2024 Free T4 [Mass/Vol] 1.05 ng/dL Normal 0.61-1.60 [facility] Comment on above: Performed By: #### 1 9123-9, THYR ####[facility] ([id number])[address] [place] [address] 70646 TSH 0.38 uIU/mL Low 0.49-4.67 [facility] Comment on above: Performed By: #### 1 9123-9, THYR ####[facility] ([id number])[address] [place] [address] 87474 Troponin I.cardiac High sens itivity method [Mass/Vol]on 08-23-2024 3 HOUR TROP I, HIGH SENSITIVITY 112 ng/L High <16 [facility] Comment on above: Result Comment: Elev ations of hs-Troponin may be due to causesother than myocardial ischemia.Recommend serial hs-Troponin testing be performed.For the initial evaluation and management of chestpain patients, refer to the algorithms linked below.Emergency Patient:[email or web address]:[email or web address]=[email or web address] Performed By: #### 8 9579-7 ####[facility] ([id number])[address] [place] [address] 78883 1 HOUR TROP I, HIGH SENSITIVITY 72 ng/L High <16 [facility] Comment on above: Result Comment: Elev ations of hs-Troponin may be due to causesother than myocardial ischemia.Recommend serial hs-Troponin testing be performed.For the initial evaluation and management of chestpain patients, refer to the algorithms linked below.Emergency Patient:[email or web address]:[email or web address]&uh=[email or web address] Performed By: #### 8 9579-7 ####[facility] ([id number])[address] [place] [address] 80009 TROPONIN I, HIGH SENSITIVITY 45 ng/L High <16 [facility] Comment on above: Result Comment: Elev ations of hs-Troponin may be due to causesother than myocardial ischemia.Recommend serial hs-Troponin testing be performed.For the initial evaluation and management of chestpain patients, refer to the algorithms linked below.Emergency Patient:[email or web address] [email or web address]=acaeaInpatient:[email or web address]&uh=acaea Performed By: #### 2 639-3, 2157-6, CBCA, CMP, 3040-3, 85529-5, 73263-8, 46478-2, 5643-2 ####[facility] ([id number])[address] [place] [address] 89161 URINE CULTUREon 08-23-2024 Bacteria identified Cx Nom (U) CULTURE RESULTS NO GROWTH AT <1000 CFU/mL Normal [facility] Comment on above: Performed By: #### 6 30-4 ####[facility] ([id number])[address] [place] [address], [address] [place] [address] URN MACROSCOPIC NURon 2023 BILIRUBIN MARYJO Negative Normal NEG [facility] Comment on above: Performed By: #### N UM ####[facility] ([id number])[address] [place] [address], [place] [address] BLOOD/HGB MARYJO Negative Normal NEG [facility] Comment on above: Performed By: #### N UM ####[facility] ([id number])[address] [place] [address] 61498 GLUCOSE MARYJO 100 mg/dL Abnormal NEG [facility] Comment on above: Performed By: #### N UM ####[facility] ([id number])[address] [place] [address], [place] [address] KETONES MARYJO Negative Normal NEG [facility] Comment on above: Performed By: #### N UM ####[facility] ([id number])[address] [place] [address] 19045 LEUKOCYTE ESTERASE MARYJO Negative Normal NEG [facility] Comment on above: Performed By: #### N UM ####[facility] ([id number])[address] [place] [address] [place] [address] NITRITE MARYJO Negative Normal NEG [facility] Comment on above: Performed By: #### N UM ####[facility] ([id number])[address] [place] [address] 15637 PH MARYJO 6.5 Normal 5.0-8.5 [facility] Comment on above: Performed By: #### N UM ####[facility] ([id number])[address] [place] [address] [place] [address] PROTEIN MARYJO Negative Normal NEG [facility] Comment on above: Performed By: #### N UM ####[facility] ([id number])[address] [place] [address] 09656 SPECIFIC GRAVITY MARYJO 1.015 Normal 1.003-1.03 5 [facility] Comment on above: Performed By: #### N UM ####[facility] ([id number])[address] [place] [address] 98825 UROBILINOGEN MARYJO 0.2 eu/dL Normal <1.1 [facility] Comment on above: Performed By: #### N UM ####[facility] ([id number])[address] [place] [address] 08953 XR CHEST 1 VWon 08-23-2024 XR CHEST 1 VW Normal [facility] aPTT Coag (PPP) [Time]on aPTT Coag (Bld) [Time] 24 s Low 26-37 [facility] Comment on above: Result Comment: NEW REFERENCE RANGE Performed By: #### P INR, 84440-2 ####[facility] ([id number])[address] [place] [address] 90254 CBC AND AUTO DIFFon 08-14-20 24 ABSOLUTE BASOPHIL 0.0 X10E9/L Normal 0.0-0.2 [facility] Comment on above: Performed By: #### 1 9123-9, CBCA, CMP, LIVR ####[facility] ([id number])[address] [place] [address] 64360 ABSOLUTE NEUTROPHIL 3.4 X10E9/L Normal 1.5-6.6 [facility] Comment on above: Performed By: #### 1 9123-9, CBCA, CMP, LIVR ####[facility] ([id number])[address] [place] [address] 65791 Basophils/100 WBC (Bld) 0.2 % Normal [facility] Comment on above: Performed By: #### 1 9123-9, CBCA, CMP, LIVR ####[facility] ([id number])[address] [place] [address] 48808 Eosinophils (Bld) [#/Vol] 0.0 10*3/uL Normal 0.0-0.4 [facility] Comment on above: Performed By: #### 1 9123-9, CBCA, CMP, LIVR ####[facility] ([id number])[address] [place] [address] 17866 Eosinophils/100 WBC (Bld) 0.0 % Normal [facility] Comment on above: Performed By: #### 1 9123-9, CBCA, CMP, LIVR ####[facility] ([id number])[address] [place] [address] 28413 Erythrocyte distribution width (RBC) [Ratio] 15.6 % High 11.5-15.0 [facility] Comment on above: Performed By: #### 1 9123-9, CBCA, CMP, LIVR ####[facility] ([id number])[address] [place] [address] 23272 Hematocrit (Bld) [Volume fraction] 30.5 % Low 35-47 [facility] Comment on above: Performed By: #### 1 9123-9, CBCA, CMP, LIVR ####[facility] ([id number])[address] [place] [address] 41137 Hemoglobin (Bld) [Mass/Vol] 9.9 g/dL Low 11.7-15.5 [facility] Comment on above: Performed By: #### 1 9123-9, CBCA, CMP, LIVR ####[facility] ([id number])[address] [place] [address] 62022 Lymphocytes (Bld) [#/Vol] 1.9 10*3/uL Normal 1.0-3.5 [facility] Comment on above: Performed By: #### 1 9123-9, CBCA, CMP, LIVR ####[facility] ([id number])[address] [place] [address] 51811 Lymphocytes/100 WBC (Bld) 29.8 % Normal [facility] Comment on above: Performed By: #### 1 9123-9, CBCA, CMP, LIVR ####[facility] ([id number])[address] [place] [address] 86220 MCH (RBC) [Entitic mass] 27.6 pg Normal 27-34 [facility] Comment on above: Performed By: #### 1 9123-9, CBCA, CMP, LIVR ####[facility] ([id number])[address] [place] [address] 10470 MCHC (RBC) [Mass/Vol] 32.5 g/dL Normal 32-36 [facility] Comment on above: Performed By: #### 1 9123-9, CBCA, CMP, LIVR ####[facility] ([id number])[address] [place] [address] 08904 MCV (RBC) [Entitic vol] 85 fL Normal 80-100 [facility] Comment on above: Performed By: #### 1 9123-9, CBCA, CMP, LIVR ####[facility] ([id number])[address] [place] [address] 32822 Monocytes (Bld) [#/Vol] 1.0 10*3/uL High 0-0.9 [facility] Comment on above: Performed By: #### 1 9123-9, CBCA, CMP, LIVR ####[facility] ([id number])[address] [place] [address] 00839 Monocytes/100 WBC (Bld) 15.5 % Normal [facility] Comment on above: Performed By: #### 1 9123-9, CBCA, CMP, LIVR ####[facility] ([id number])[address] [place] [address] 49399 Neutrophils/100 WBC (Bld) 54.5 % Normal [facility] Comment on above: Performed By: #### 1 9123-9, CBCA, CMP, LIVR ####[facility] ([id number])[address] [place] [address] 05432 Platelet mean volume (Bld) [Entitic vol] 8.3 fL Normal 7-12 [facility] Comment on above: Performed By: #### 1 9123-9, CBCA, CMP, LIVR ####[facility] ([id number])[address] [place] [address] 70121 Platelets (Bld) [#/Vol] 228 10*3/uL Normal 150-450 [facility] Comment on above: Performed By: #### 1 9123-9, CBCA, CMP, LIVR ####[facility] ([id number])[address] [place] [address] 18001 RBC COUNT 3.60 X10E12/L Low 3.80-5.20 [facility] Comment on above: Performed By: #### 1 9123-9, CBCA, CMP, LIVR ####[facility] ([id number])[address] [place] [address] 37309 WBC (Bld) [#/Vol] 6.3 10*3/uL Normal 4.0-11.0 [facility] Comment on above: Performed By: #### 1 9123-9, CBCA, CMP, LIVR ####[facility] ([id number])[address] [place] [address] 73755 COMPREHENSIVE METABOLIC PANE Dickson 08-14-2024 Albumin [Mass/Vol] 3.4 g/dL Normal 3.2-5.3 [facility] Comment on above: Performed By: #### 1 9123-9, CBCA, CMP, LIVR ####[facility] ([id number])[address] [place] [address] 47016 ALP [Catalytic activity/Vol] 70 U/L Normal 39-130 [facility] Comment on above: Performed By: #### 1 9123-9, CBCA, CMP, LIVR ####[facility] ([id number])[address] [place] [address] 46873 ALT [Catalytic activity/Vol] 14 U/L Normal 0-31 [facility] Comment on above: Performed By: #### 1 9123-9, CBCA, CMP, LIVR ####[facility] ([id number])[address] [place] [address] 43219 Anion gap [Moles/Vol] 10 mmol/L Normal 5-15 [facility] Comment on above: Performed By: #### 1 9123-9, CBCA, CMP, LIVR ####[facility] ([id number])[address] [place] [address] 58629 AST [Catalytic activity/Vol] 19 U/L Normal 0-41 [facility] Comment on above: Performed By: #### 1 9123-9, CBCA, CMP, LIVR ####[facility] ([id number])[address] [place] [address] 79576 Bilirubin [Mass/Vol] 0.4 mg/dL Normal 0.3-1.2 [facility] Comment on above: Performed By: #### 1 9123-9, CBCA, CMP, LIVR ####[facility] ([id number])[address] [place] [address] 66866 Calcium [Mass/Vol] 9.0 mg/dL Normal 8.5-10.5 [facility] Comment on above: Performed By: #### 1 9123-9, CBCA, CMP, LIVR ####[facility] ([id number])[address] [place] [address] 87688 Chloride [Moles/Vol] 103 mmol/L Normal 98-109 [facility] Comment on above: Performed By: #### 1 9123-9, CBCA, CMP, LIVR ####[facility] ([id number])[address] [place] [address] 20651 CO2 [Moles/Vol] 22 mmol/L Normal 22-32 [facility] Comment on above: Performed By: #### 1 9123-9, CBCA, CMP, LIVR ####[facility] ([id number])[address] [place] [address] 58388 Creatinine [Mass/Vol] 1.39 mg/dL High 0.40-1.00 [facility] Comment on above: Result Comment: METH OD TRACEABLE TO IDMS STANDARD Performed By: #### 1 9123-9, CBCA, CMP, LIVR ####[facility] ([id number])[address] [place] [address] 01214 GFR/1.73 sq M.predicted among non-blacks MDRD (S/P/Bld) [Vol rate/Area] 39 mL/min/{1.73_m2} Low >59 [facility] Comment on above: Result Comment: Repo rted eGFR is based on theCKD-EPI 2020 equation that doesnot use a race coefficient. Performed By: #### 1 9123-9, CBCA, CMP, LIVR ####[facility] ([id number])[address] [place] [address] 03808 Glucose [Mass/Vol] 102 mg/dL High 65-99 [facility] Comment on above: Performed By: #### 1 9123-9, CBCA, CMP, LIVR ####[facility] ([id number])[address] [place] [address], [place] [address] Potassium [Moles/Vol] 4.3 mmol/L Normal 3.5-5.0 [facility] Comment on above: Performed By: #### 1 9123-9, CBCA, CMP, LIVR ####[facility] ([id number])[address] [place] [address] 84223 Protein [Mass/Vol] 7.0 g/dL Normal 6.0-8.0 [facility] Comment on above: Performed By: #### 1 9123-9, CBCA, CMP, LIVR ####[facility] ([id number])[address] [place] [address] 28162 Sodium [Moles/Vol] 135 mmol/L Normal 134-146 [facility] Comment on above: Performed By: #### 1 9123-9, CBCA, CMP, LIVR ####[facility] ([id number])[address] [place] [address] 82743 Urea nitrogen [Mass/Vol] 40 mg/dL High 5-27 [facility] Comment on above: Performed By: #### 1 9123-9, CBCA, CMP, LIVR ####[facility] ([id number])[address] [place] [address] 08361 Glucose Glucometer (BldC) [M ass/Vol]on 08-14-2024 Glucose [Mass/Vol] 372 mg/dL High 65-99 [facility] Glucose [Mass/Vol] 204 mg/dL High 65-99 [facility] LIVER PANELon 08-14-2024 Bilirubin.indirec t [Mass/Vol] mg/dL Normal 0.0-0.4 [facility] Comment on above: Performed By: #### 1 9123-9, CBCA, CMP, LIVR ####[facility] ([id number])[address] [place] [address] 87349 MAGNESIUMon 08-14-2024 Magnesium [Mass/Vol] 1.8 mg/dL Normal 1.8-2.6 [facility] Comment on above: Performed By: #### 1 9123-9, CBCA, CMP, LIVR ####[facility] ([id number])[address] [place] [address] 16252 CBC AND AUTO DIFFon 08-13-20 ABSOLUTE BASOPHIL 0.0 X10E9/L Normal 0.0-0.2 [facility] Comment on above: Performed By: #### 1 9123-9, CMP, LIVR, CBCA ####[facility] ([id number])[address] [place] [address] 89750 ABSOLUTE NEUTROPHIL 4.4 X10E9/L Normal 1.5-6.6 [facility] Comment on above: Performed By: #### 1 9123-9, CMP, LIVR, CBCA ####[facility] ([id number])[address] [place] [address] 76592 Basophils/100 WBC (Bld) 0.2 % Normal [facility] Comment on above: Performed By: #### 1 9123-9, CMP, LIVR, CBCA ####[facility] ([id number])[address] [place] [address] 84237 Eosinophils (Bld) [#/Vol] 0.0 10*3/uL Normal 0.0-0.4 [facility] Comment on above: Performed By: #### 1 9123-9, CMP, LIVR, CBCA ####[facility] ([id number])[address] [place] [address] 97325 Eosinophils/100 WBC (Bld) 0.2 % Normal [facility] Comment on above: Performed By: #### 1 9123-9, CMP, LIVR, CBCA ####[facility] ([id number])[address] [place] [address] 36820 Erythrocyte distribution width (RBC) [Ratio] 16.1 % High 11.5-15.0 [facility] Comment on above: Performed By: #### 1 9123-9, CMP, LIVR, CBCA ####[facility] ([id number])[address] [place] [address] 62081 Hematocrit (Bld) [Volume fraction] 28.2 % Low 35-47 [facility] Comment on above: Performed By: #### 1 9123-9, CMP, LIVR, CBCA ####[facility] ([id number])[address] [place] [address] 26174 Hemoglobin (Bld) [Mass/Vol] 9.1 g/dL Low 11.7-15.5 [facility] Comment on above: Performed By: #### 1 9123-9, CMP, LIVR, CBCA ####[facility] ([id number])[address] [place] [address] 38005 Lymphocytes (Bld) [#/Vol] 1.1 10*3/uL Normal 1.0-3.5 [facility] Comment on above: Performed By: #### 1 9123-9, CMP, LIVR, CBCA ####[facility] ([id number])[address] [place] [address] 73478 Lymphocytes/100 WBC (Bld) 17.4 % Normal [facility] Comment on above: Performed By: #### 1 9123-9, CMP, LIVR, CBCA ####[facility] ([id number])[address] [place] [address] 93477 MCH (RBC) [Entitic mass] 27.5 pg Normal 27-34 [facility] Comment on above: Performed By: #### 1 9123-9, CMP, LIVR, CBCA ####[facility] ([id number])[address] [place] [address] [place] [address] MCHC (RBC) [Mass/Vol] 32.2 g/dL Normal 32-36 [facility] Comment on above: Performed By: #### 1 9123-9, CMP, LIVR, CBCA ####[facility] ([id number])[address] [place] [address] 80834 MCV (RBC) [Entitic vol] 85 fL Normal 80-100 [facility] Comment on above: Performed By: #### 1 9123-9, CMP, LIVR, CBCA ####[facility] ([id number])[address] [place] [address] 19357 Monocytes (Bld) [#/Vol] 0.9 10*3/uL Normal 0-0.9 [facility] Comment on above: Performed By: #### 1 9123-9, CMP, LIVR, CBCA ####[facility] ([id number])[address] [place] [address] 86693 Monocytes/100 WBC (Bld) 13.8 % Normal [facility] Comment on above: Performed By: #### 1 9123-9, CMP, LIVR, CBCA ####[facility] ([id number])[address] [place] [address] 19912 Neutrophils/100 WBC (Bld) 68.4 % Normal [facility] Comment on above: Performed By: #### 1 9123-9, CMP, LIVR, CBCA ####[facility] ([id number])[address] [place] [address] 00124 Platelet mean volume (Bld) [Entitic vol] 8.6 fL Normal 7-12 [facility] Comment on above: Performed By: #### 1 9123-9, CMP, LIVR, CBCA ####[facility] ([id number])[address] [place] [address] 14034 Platelets (Bld) [#/Vol] 207 10*3/uL Normal 150-450 [facility] Comment on above: Performed By: #### 1 9123-9, CMP, LIVR, CBCA ####[facility] ([id number])[address] [place] [address] 51798 RBC COUNT 3.30 X10E12/L Low 3.80-5.20 [facility] Comment on above: Performed By: #### 1 9123-9, CMP, LIVR, CBCA ####[facility] ([id number])[address] [place] [address] 41466 WBC (Bld) [#/Vol] 6.5 10*3/uL Normal 4.0-11.0 [facility] Comment on above: Performed By: #### 1 9123-9, CMP, LIVR, CBCA ####[facility] ([id number])[address] [place] [address] 33349 COMPREHENSIVE METABOLIC PANE [facility] 08-13-2024 Albumin [Mass/Vol] 3.4 g/dL Normal 3.2-5.3 [facility] Comment on above: Performed By: #### 1 9123-9, CMP, LIVR, CBCA ####[facility] ([id number])[address] [place] [address] 97650 ALP [Catalytic activity/Vol] 74 U/L Normal 39-130 [facility] Comment on above: Performed By: #### 1 9123-9, CMP, LIVR, CBCA ####[facility] ([id number])[address] [place] [address] 82227 ALT [Catalytic activity/Vol] 13 U/L Normal 0-31 [facility] Comment on above: Performed By: #### 1 9123-9, CMP, LIVR, CBCA ####[facility] ([id number])[address] [place] [address] 97884 Anion gap [Moles/Vol] 8 mmol/L Normal 5-15 [facility] Comment on above: Performed By: #### 1 9123-9, CMP, LIVR, CBCA ####[facility] ([id number])[address] [place] [address] 79502 AST [Catalytic activity/Vol] 17 U/L Normal 0-41 [facility] Comment on above: Performed By: #### 1 9123-9, CMP, LIVR, CBCA ####[facility] ([id number])[address] [place] [address] 28332 Bilirubin [Mass/Vol] 0.3 mg/dL Normal 0.3-1.2 [facility] Comment on above: Performed By: #### 1 9123-9, CMP, LIVR, CBCA ####[facility] ([id number])[address] [place] [address] 13473 Calcium [Mass/Vol] 8.9 mg/dL Normal 8.5-10.5 [facility] Comment on above: Performed By: #### 1 9123-9, CMP, LIVR, CBCA ####[facility] ([id number])[address] [place] [address] 33836 Chloride [Moles/Vol] 101 mmol/L Normal 98-109 [facility] Comment on above: Performed By: #### 1 9123-9, CMP, LIVR, CBCA ####[facility] ([id number])[address] [place] [address] 95363 CO2 [Moles/Vol] 27 mmol/L Normal 22-32 [facility] Comment on above: Performed By: #### 1 9123-9, CMP, LIVR, CBCA ####[facility] ([id number])[address] [place] [address] 81814 Creatinine [Mass/Vol] 1.43 mg/dL High 0.40-1.00 [facility] Comment on above: Result Comment: METH OD TRACEABLE TO IDMS STANDARD Performed By: #### 1 9123-9, CMP, LIVR, CBCA ####[facility] ([id number])[address] [place] [address] 39140 GFR/1.73 sq M.predicted among non-blacks MDRD (S/P/Bld) [Vol rate/Area] 38 mL/min/{1.73_m2} Low >59 [facility] Comment on above: Result Comment: Repo rted eGFR is based on theCKD-EPI 2020 equation that doesnot use a race coefficient. Performed By: #### 1 9123-9, CMP, LIVR, CBCA ####[facility] ([id number])[address] [place] [address] 96272 Glucose [Mass/Vol] 189 mg/dL High 65-99 [facility] Comment on above: Performed By: #### 1 9123-9, CMP, LIVR, CBCA ####[facility] ([id number])[address] [place] [address] 15212 Potassium [Moles/Vol] 4.8 mmol/L Normal 3.5-5.0 [facility] Comment on above: Performed By: #### 1 9123-9, CMP, LIVR, CBCA ####[facility] ([id number])[address] [place] [address] 77462 Protein [Mass/Vol] 6.9 g/dL Normal 6.0-8.0 [facility] Comment on above: Performed By: #### 1 9123-9, CMP, LIVR, CBCA ####[facility] ([id number])[address] [place] [address] 27897 Sodium [Moles/Vol] 136 mmol/L Normal 134-146 [facility] Comment on above: Performed By: #### 1 9123-9, CMP, LIVR, CBCA ####[facility] ([id number])[address] [place] [address] 02106 Urea nitrogen [Mass/Vol] 33 mg/dL High 5-27 [facility] Comment on above: Performed By: #### 1 9123-9, CMP, LIVR, CBCA ####[facility] ([id number])[address] [place] [address] 35579 Glucose Glucometer (BldC) [M ass/Vol]on 08-13-2024 Glucose [Mass/Vol] 233 mg/dL High 65-99 [facility] Glucose [Mass/Vol] 261 mg/dL High 65-99 [facility] Glucose [Mass/Vol] 235 mg/dL High 65-99 [facility] Glucose [Mass/Vol] 136 mg/dL High 65-99 [facility] LIVER PANELon 08-13-2024 Bilirubin.direct [Mass/Vol] 0.1 mg/dL Normal 0.0-0.4 [facility] Comment on above: Performed By: #### 1 9123-9, CMP, LIVR, CBCA ####[facility] ([id number])[address] [place] [address] 93278 MAGNESIUMon 08-13-2024 Magnesium [Mass/Vol] 1.9 mg/dL Normal 1.8-2.6 [facility] Comment on above: Performed By: #### 1 9123-9, CMP, LIVR, CBCA ####[facility] ([id number])[address] [place] [address] 61543 BLOOD CULTUREon 08-12-2024 Bacteria identified Aer cx Nom (Bld) SPECIMEN NOTES l hand CULTURE RESULTS NO GROWTH 5 DAYS Normal [facility] Comment on above: Performed By: #### 1 7928-3 ####[facility] ([id number])[address] [place] [address] 87939 Bacteria identified Aer cx Nom (Bld) SPECIMEN NOTES r hand CULTURE RESULTS NO GROWTH 5 DAYS Normal [facility] Comment on above: Performed By: #### 1 7928-3 ####[facility] ([id number])[address] [place] [address] 97286 CBC AND AUTO DIFFon 08-12-20 ABSOLUTE BASOPHIL 0.0 X10E9/L Normal 0.0-0.2 [facility] Comment on above: Performed By: #### 7 5241-0, CMP, LIVR, 63346-2, CBCA ####[facility] ([id number])[address] [place] [address] 60731 ABSOLUTE NEUTROPHIL 5.8 X10E9/L Normal 1.5-6.6 [facility] Comment on above: Performed By: #### 7 5241-0, CMP, LIVR, 69862-5, CBCA ####[facility] ([id number])[address] [place] [address] 63303 Basophils/100 WBC (Bld) 0.5 % Normal [facility] Comment on above: Performed By: #### 7 5241-0, CMP, LIVR, 83390-1, CBCA ####[facility] ([id number])[address] [place] [address] 02727 Eosinophils (Bld) [#/Vol] 0.1 10*3/uL Normal 0.0-0.4 [facility] Comment on above: Performed By: #### 7 5241-0, CMP, LIVR, 94644-2, CBCA ####[facility] ([id number])[address] [place] [address] 57529 Eosinophils/100 WBC (Bld) 1.5 % Normal [facility] Comment on above: Performed By: #### 7 5241-0, CMP, LIVR, 73513-0, CBCA ####[facility] ([id number])[address] [place] [address] 17676 Erythrocyte distribution width (RBC) [Ratio] 16.1 % High 11.5-15.0 [facility] Comment on above: Performed By: #### 7 5241-0, CMP, LIVR, 84053-4, CBCA ####[facility] ([id number])[address] [place] [address] 97082 Hematocrit (Bld) [Volume fraction] 30.8 % Low 35-47 [facility] Comment on above: Performed By: #### 7 5241-0, CMP, LIVR, 46910-1, CBCA ####[facility] ([id number])[address] [place] [address] 81274 Hemoglobin (Bld) [Mass/Vol] 10.1 g/dL Low 11.7-15.5 [facility] Comment on above: Performed By: #### 7 5241-0, CMP, LIVR, 64859-4, CBCA ####[facility] ([id number])[address] [place] [address] 02043 Lymphocytes (Bld) [#/Vol] 0.5 10*3/uL Low 1.0-3.5 [facility] Comment on above: Performed By: #### 7 5241-0, CMP, LIVR, 16780-5, CBCA ####[facility] ([id number])[address] [place] [address] 99457 Lymphocytes/100 WBC (Bld) 7.4 % Normal [facility] Comment on above: Performed By: #### 7 5241-0, CMP, LIVR, 26256-7, CBCA ####[facility] ([id number])[address] [place] [address] 33317 MCH (RBC) [Entitic mass] 27.8 pg Normal 27-34 [facility] Comment on above: Performed By: #### 7 5241-0, CMP, LIVR, 97201-9, CBCA ####[facility] ([id number])[address] [place] [address] 19074 MCHC (RBC) [Mass/Vol] 32.7 g/dL Normal 32-36 [facility] Comment on above: Performed By: #### 7 5241-0, CMP, LIVR, 66449-4, CBCA ####[facility] ([id number])[address] [place] [address] 47015 MCV (RBC) [Entitic vol] 85 fL Normal 80-100 [facility] Comment on above: Performed By: #### 7 5241-0, CMP, LIVR, 17506-6, CBCA ####[facility] ([id number])[address] [place] [address] 66440 Monocytes (Bld) [#/Vol] 0.8 10*3/uL Normal 0-0.9 [facility] Comment on above: Performed By: #### 7 5241-0, CMP, LIVR, 25350-2, CBCA ####[facility] ([id number])[address] [place] [address] 28689 Monocytes/100 WBC (Bld) 11.4 % Normal [facility] Comment on above: Performed By: #### 7 5241-0, CMP, LIVR, 25452-7, CBCA ####[facility] ([id number])[address] [place] [address] 61356 Neutrophils/100 WBC (Bld) 79.2 % Normal [facility] Comment on above: Performed By: #### 7 5241-0, CMP, LIVR, 10614-4, CBCA ####[facility] ([id number])[address] [place] [address] 72608 Platelet mean volume (Bld) [Entitic vol] 8.2 fL Normal 7-12 [facility] Comment on above: Performed By: #### 7 5241-0, CMP, LIVR, 43579-3, CBCA ####[facility] ([id number])[address] [place] [address] 07197 Platelets (Bld) [#/Vol] 260 10*3/uL Normal 150-450 [facility] Comment on above: Performed By: #### 7 5241-0, CMP, LIVR, 25239-8, CBCA ####[facility] ([id number])[address] [place] [address] 15420 RBC COUNT 3.62 X10E12/L Low 3.80-5.20 [facility] Comment on above: Performed By: #### 7 5241-0, CMP, LIVR, 90536-5, CBCA ####[facility] ([id number])[address] [place] [address] 99841 WBC (Bld) [#/Vol] 7.3 10*3/uL Normal 4.0-11.0 [facility] Comment on above: Performed By: #### 7 5241-0, CMP, LIVR, 53772-2, CBCA ####[facility] ([id number])[address] [place] [address] 69021 COMPREHENSIVE METABOLIC PANE Dickson 08-12-2024 Albumin [Mass/Vol] 4.1 g/dL Normal 3.2-5.3 [facility] Comment on above: Performed By: #### 7 5241-0, CMP, LIVR, 06347-4, CBCA ####[facility] ([id number])[address] [place] [address] 62769 ALP [Catalytic activity/Vol] 87 U/L Normal 39-130 [facility] Comment on above: Performed By: #### 7 5241-0, CMP, LIVR, 54217-8, CBCA ####[facility] ([id number])[address] [place] [address], [place] [address] ALT [Catalytic activity/Vol] 13 U/L Normal 0-31 [facility] Comment on above: Performed By: #### 7 5241-0, CMP, LIVR, 28646-7, CBCA ####[facility] ([id number])[address] [place] [address] [place] [address] Anion gap [Moles/Vol] 8 mmol/L Normal 5-15 [facility] Comment on above: Performed By: #### 7 5241-0, CMP, LIVR, 54579-3, CBCA ####[facility] ([id number])[address] [place] [address], [place] [address] AST [Catalytic activity/Vol] 17 U/L Normal 0-41 [facility] Comment on above: Performed By: #### 7 5241-0, CMP, LIVR, 18747-4, CBCA ####[facility] ([id number])[address] [place] [address] [place] [address] Bilirubin [Mass/Vol] 0.4 mg/dL Normal 0.3-1.2 [facility] Comment on above: Performed By: #### 7 5241-0, CMP, LIVR, 62948-2, CBCA ####[facility] ([id number])[address] [place] [address] [place] [address] Calcium [Mass/Vol] 9.0 mg/dL Normal 8.5-10.5 [facility] Comment on above: Performed By: #### 7 5241-0, CMP, LIVR, 53953-9, CBCA ####[facility] ([id number])[address] [place] [address] [place] [address] Chloride [Moles/Vol] 101 mmol/L Normal 98-109 [facility] Comment on above: Performed By: #### 7 5241-0, CMP, LIVR, 82831-5, CBCA ####[facility] ([id number])[address] [place] [address] 15437 CO2 [Moles/Vol] 27 mmol/L Normal 22-32 [facility] Comment on above: Performed By: #### 7 5241-0, CMP, LIVR, 00386-0, CBCA ####[facility] ([id number])[address] [place] [address] 61452 Creatinine [Mass/Vol] 1.48 mg/dL High 0.40-1.00 [facility] Comment on above: Result Comment: METH OD TRACEABLE TO IDMS STANDARD Performed By: #### 7 5241-0, CMP, LIVR, 94860-2, CBCA ####[facility] ([id number])[address] [place] [address] 26221 GFR/1.73 sq M.predicted among non-blacks MDRD (S/P/Bld) [Vol rate/Area] 36 mL/min/{1.73_m2} Low >59 [facility] Comment on above: Result Comment: Repo rted eGFR is based on theCKD-EPI 2020 equation that doesnot use a race coefficient. Performed By: #### 7 5241-0, CMP, LIVR, 21821-2, CBCA ####[facility] ([id number])[address] [place] [address] 47990 Glucose [Mass/Vol] 271 mg/dL High 65-99 [facility] Comment on above: Performed By: #### 7 5241-0, CMP, LIVR, 86317-3, CBCA ####[facility] ([id number])[address] [place] [address] 04287 Potassium [Moles/Vol] 4.8 mmol/L Normal 3.5-5.0 [facility] Comment on above: Performed By: #### 7 5241-0, CMP, LIVR, 71494-5, CBCA ####[facility] ([id number])[address] [place] [address] 77383 Protein [Mass/Vol] 7.6 g/dL Normal 6.0-8.0 [facility] Comment on above: Performed By: #### 7 5241-0, CMP, LIVR, 47842-2, CBCA ####[facility] ([id number])[address] [place] [address] 49463 Sodium [Moles/Vol] 136 mmol/L Normal 134-146 [facility] Comment on above: Performed By: #### 7 5241-0, CMP, LIVR, 07316-2, CBCA ####[facility] ([id number])[address] [place] [address] 55999 Urea nitrogen [Mass/Vol] 33 mg/dL High 5-27 [facility] Comment on above: Performed By: #### 7 5241-0, CMP, LIVR, 14054-0, CBCA ####[facility] ([id number])[address] [place] [address] 64581 Fibrin D-dimer DDU (PPP) [Ma ss/Vol]on 08-12-2024 D DIMER 1146 ng/mL DDU High <255 [facility] Comment on above: Result Comment: Resu lts >=255ng/mL DDU: Results may beindicative of the presence of VTE. The useof the Wells score and further diagnostictests should be considered. Elevated D-Dimerlevels can also be associated with DIC,neoplasm, , trauma and liver disease.Elevated levels of rheumatoid factor may leadto an overestimation of the D-Dimer level. Performed By: #### 7 5241-0, CMP, LIVR, 58455-7, CBCA ####[facility] ([id number])[address] [place] [address] 64727 Glucose Glucometer (BldC) [M ass/Vol]on 08-12-2024 Glucose [Mass/Vol] 313 mg/dL High 65-99 [facility] Glucose [Mass/Vol] 255 mg/dL High 65-99 [facility] Glucose [Mass/Vol] 113 mg/dL High 65-99 [facility] Glucose [Mass/Vol] 161 mg/dL High 65-99 [facility] LEGIONELLA URINE AGon 2023 L. pneumophila Ag IA Ql (U) LEGIONELLA URINE AG Negative (qualifier value) NEGATIVE FOR L.PNEUMOPHILA SEROGROUP 1 ANTIGEN Normal [facility] Comment on above: Performed By: #### 6 447-7 ####[facility] ([id number])[address] [place] [address], [address] [place] [address] 29668 LIVER PANELon 08-12-2024 Albumin [Mass/Vol] 3.9 g/dL Normal 3.2-5.3 [facility] Comment on above: Performed By: #### 7 5241-0, CMP, LIVR, 31189-5, CBCA ####[facility] ([id number])[address] [place] [address] 07238 Bilirubin [Mass/Vol] 0.1 mg/dL Low 0.3-1.2 [facility] Comment on above: Performed By: #### 7 5241-0, CMP, LIVR, 19556-6, CBCA ####[facility] ([id number])[address] [place] [address] 11852 Bilirubin.indirec t [Mass/Vol] mg/dL Normal 0.0-0.4 [facility] Comment on above: Performed By: #### 7 5241-0, CMP, LIVR, 65943-7, CBCA ####[facility] ([id number])[address] [place] [address] 89702 Protein [Mass/Vol] 7.5 g/dL Normal 6.0-8.0 [facility] Comment on above: Performed By: #### 7 5241-0, CMP, LIVR, 30558-9, CBCA ####[facility] ([id number])[address] [place] [address] 80482 Lactate (P obed) [Moles/Vol]o n 08-12-2024 LACTATE W/REFLEX 0.9 mmol/L Normal 0.4-2.0 [facility] Comment on above: Result Comment: Resu lt did not trigger repeat Lactate,re-order if needed. Performed By: #### 3 2133-1 ####[facility] ([id number])[address] [place] [address] 83843 NM PULM PERFUSION SCANon NM PULM PERFUSION SCAN Normal [facility] Procalcitonin IA [Mass/Vol]o n 08-12-2024 PROCALCITONIN 0.05 ng/mL High <0.05 [facility] Comment on above: Result Comment: NOTE <0.50 ng/mL - Low risk of severe sepsis and/or septic shock.<2.00 ng/mL - Recommend retesting within 6-24 hours.>2.00 ng/mL - High risk of sepsis and/or septic shock. Performed By: #### 7 5241-0, CMP, LIVR, 27994-0, CBCA ####[facility] ([id number])[address] [place] [address] 29558 S PNEUMONIAE AG Uon 08-12-20 S. pneumoniae Ag Ql (U) Negative Normal NEG [facility] Comment on above: Performed By: #### 2 4027-5 ####[facility] ([id number])[address] [facility], [address] [place] [address] 65572 SARS/FLU A+B/RSV by NAAT/Mol ecularon 08-12-2024 SARS/FLU A+B/RSV by NAAT/Molecular Normal [facility] Comment on above: Performed By: #### C OVFLR ####[facility] ([id number])[address] [place] [address], [place] [address] URINE CULTUREon 08-12-2024 Bacteria identified Cx Nom (U) Susceptible [facility] Comment on above: Performed By: #### 6 30-4 ####[facility] ([id number])[address] [facility], [address], [place] [address] URN MACROSCOPIC NURon 2023 BILIRUBIN MARYJO Negative Normal NEG [facility] Comment on above: Performed By: #### N UM ####[facility] ([id number])[address] [place] [address], [place] [address] BLOOD/HGB MARYJO Negative Normal NEG [facility] Comment on above: Performed By: #### N UM ####[facility] ([id number])[address] [place] [address] [place] [address] GLUCOSE MARYJO 250 mg/dL Abnormal NEG [facility] Comment on above: Performed By: #### N UM ####[facility] ([id number])[address] [place] [address], [place] [address] KETONES MARYJO Negative Normal NEG [facility] Comment on above: Performed By: #### N UM ####[facility] ([id number])[address] [place] [address], [place] [address] LEUKOCYTE ESTERASE MARYJO Trace Abnormal NEG [facility] Comment on above: Performed By: #### N UM ####[facility] ([id number])[address] [place] [address], [place] [address] NITRITE MARYJO Positive Abnormal NEG [facility] Comment on above: Performed By: #### N UM ####[facility] ([id number])[address] [place] [address], [place] [address] PH MARYJO 7.0 Normal 5.0-8.5 [facility] Comment on above: Performed By: #### N UM ####[facility] ([id number])[address] [place] [address] 86966 PROTEIN MARYJO 30 mg/dL Abnormal NEG [facility] Comment on above: Performed By: #### N UM ####[facility] ([id number])[address] [place] [address] 52633 SPECIFIC GRAVITY MARYJO >=1.030 Normal 1.003-1.03 5 [facility] Comment on above: Performed By: #### N UM ####[facility] ([id number])[address] [place] [address] 69842 UROBILINOGEN MARYJO 0.2 eu/dL Normal <1.1 [facility] Comment on above: Performed By: #### N UM ####[facility] ([id number])[address] [place] [address] 96900 VENOUS BLOOD GASon 4 TATO'S TEST Normal [facility] Comment on above: Performed By: #### V BG ####[facility] ([id number])[address] [place] [address] 96188 Base excess Calc (Bld) [Moles/Vol] 3.0 mmol/L High 0.0-2.0 [facility] Comment on above: Performed By: #### V BG ####[facility] ([id number])[address] [place] [address] 11358 Body temperature 98.6 [degF] Normal 37.0 [facility] Comment on above: Performed By: #### V BG ####[facility] ([id number])[address] [place] [address] 55772 HCO3 (Bld) [Moles/Vol] 30.2 mmol/L High 20.0-24.0 [facility] Comment on above: Performed By: #### V BG ####[facility] ([id number])[address] [place] [address] [place] [address] Oxygen saturation in Blood 43.0 % Low >80.0 [facility] Comment on above: Performed By: #### V BG ####[facility] ([id number])[address] [place] [address], [place] [address] OXYGEN SOURCE NC Normal [facility] Comment on above: Performed By: #### V BG ####[facility] ([id number])[address] [place] [address] [place] [address] PCO2, VENOUS 58.4 MMHG High 35-50 [facility] Comment on above: Performed By: #### V BG ####[facility] ([id number])[address] [place] [address] [place] [address] PH, VENOUS 7.322 Normal 7.320-7.42 0 [facility] Comment on above: Performed By: #### V BG ####[facility] ([id number])[address] [place] [address] [place] [address] PO2, VENOUS 27 MMHG Low 30-50 [facility] Comment on above: Performed By: #### V BG ####[facility] ([id number])[address] [place] [address] [place] [address] SAMPLE SITE N/A Normal [facility] Comment on above: Performed By: #### V BG ####[facility] ([id number])[address] [place] [address] [place] [address] SAMPLE TYPE VENOUS Normal [facility] Comment on above: Performed By: #### V BG ####[facility] ([id number])[address] [place] [address], [place] [address] XR CHEST 1 VWon 08-12-2024 XR CHEST 1 VW Normal [facility] POCT urinalysis dipstick onl yon 02-09-2024 Appearance (U) cloudy [facility] [...] [facility] External Poct Urine Specific [place] 1.020 [facility] External Poct Urine Urobilinogen 0.[address] [facility] [address] CARDIAC W C STC MORP CARD ONLYon 01-18-2023 CT CARDIAC W C [facility] MORP CARD ONLY EXAMINATION: CT HEART [...] valve measurements were analyzed and provided by [employer] and are reported separately to the cardiology department. 3. Severe triple-vessel coronary artery calcifications. 4. Small sliding hiatal hernia. Interpreted by: Ning Parra MD Signed by: Ning Parra MD 01/18/23 Final result Normal [facility] CTA CHEST ABDOMEN PELVIS W CONTRAST [...] with a couple of ill-defined sclerotic foci. WELD ENGINEER shunt tubing in the right neck [...] adenopathy. Very small fat containing umbilical hernia. WELD ENGINEER shunt tubing enters the abdomen in [...] pelvis which may be related to the WELD ENGINEER shunt catheter. There is a cystic [...] for planned (more content not included)... Normal [facility] No acute abnormality identified on [...] recommended. 5 mm subpleural right lung nodule. WELD ENGINEER shunt noted. Small hiatal hernia. The [...] Findings Committee. J Am Janel Radiol 2010;7:754-773 [facility] RIS CONSOLIDATED EXAMINATION: CTA OF THE CHEST, [...] with a couple of ill-defined sclerotic foci. WELD ENGINEER shunt tubing in the right neck [...] adenopathy. Very small fat containing umbilical hernia. WELD ENGINEER shunt tubing enters the abdomen in [...] pelvis which may be related to the WELD ENGINEER shunt catheter. There is a cystic [...] in the left flank and gluteal regions. [facility] RIS CONSOLIDATED Tato Syed MD - 01/15/2023 [...] with a couple of ill-defined sclerotic foci. WELD ENGINEER shunt tubing in the right neck [...] adenopathy. Very small fat containing umbilical hernia. WELD ENGINEER shunt tubing enters the abdomen in [...] pelvis which may be related to the WELD ENGINEER shunt catheter. There is a cystic [...] and gluteal regions. (more content not included)... [employer] Work Phone: CTA CHEST ABDOMEN PELVIS W C ONTRASTOrdered By: Tato Syed on 01-15-2023 [employer] Work Phone: PULMONARY FUNCTIONon 023 [address] [id number] PULMONARY FUNCTION PATIENT NAME: CUCA DEE : 1945 MED REC NO: [id number] ROOM: ACCOUNT NO: [id number] ADMIT DATE: 01/13/2023 PROVIDER: Whit Maloney DATE [...] correlation is recommended. WHIT MALONEY MELODY/[id number] Doc#: [id number] CC: Normal [facility] CTA CHEST ABDOMEN PELVIS W C Juan 01-13-2023 Radiology Study observation (narrative) [facility] Work Phone: POC Glucose Fingerstickon Glucose [Mass/Vol] 104 mg/dL 65 - 105 mg/dL [facility] Basic Metabolic Panelon 11-16 Anion gap [Moles/Vol] 11 mmol/L 9 - 17 mmol/L [facility] Calcium [Mass/Vol] 9.0 mg/dL 8.6 - 10.4 mg/dL [facility] Chloride [Moles/Vol] 105 mmol/L 98 - 107 mmol/L [facility] CO2 [Moles/Vol] 20 mmol/L 20 - 31 mmol/L [facility] Creatinine [Mass/Vol] 1.04 mg/dL High 0.50 - 0.90 mg/dL [facility] GFR/1.73 sq M.predicted MDRD (S/P/Bld) [Vol rate/Area] 56 mL/min/{1.73_m2} Low - PINF [facility] Comment on above: These results are not [...] 131 mg/dL High 70 - 99 mg/dL [facility] Interpretation and review of laboratory results Abnormal [facility] Potassium [Moles/Vol] 4.3 mmol/L 3.7 - 5.3 mmol/L [facility] Sodium [Moles/Vol] 136 mmol/L 135 - 144 mmol/L [facility] Urea nitrogen (BldV) [Mass/Vol] 17 mg/dL 8 - 23 mg/dL [facility] Basic Metabolic Profon 12-10 Anion gap [Moles/Vol] 11 mmol/L Normal 9-17 [facility] Comment on above: Performed By: #### H H, BMPX #### [facility] [employer] [address] [place] [id number] [employer]: Luis Solis MD Calcium [Mass/Vol] 9.0 mg/dL Normal 8.6-10.4 [facility] Comment on above: Performed By: #### H H, BMPX #### [facility] [employer] [address] [place] [id number] [employer]: Luis Solis MD Chloride [Moles/Vol] 105 mmol/L Normal 98-107 [facility] Comment on above: Performed By: #### H H, BMPX #### [facility] [employer] [address] [place] [id number] [employer]: Luis Solis MD CO2 [Moles/Vol] 20 mmol/L Normal 20-31 [facility] Comment on above: Performed By: #### H H, BMPX #### [facility] [employer] [address] [place] [id number] [employer]: Luis Solis MD Creatinine [Mass/Vol] 1.04 mg/dL High 0.50-0.90 [facility] [facility] Comment on above: Performed By: #### H H, BMPX #### [facility] [employer] [address] [place] [address] Mathematician Research: Luis Solis MD GFR/1.73 sq M.predicted among non-blacks MDRD (S/P/Bld) [Vol rate/Area] 56 mL/min/{1.73_m2} Low >60 [facility] Comment on above: Result Comment: [...] By: #### H H, BMPX #### [facility] [employer] [address] [place] [address]678 [employer]hematician Research: Luis Solis MD Glucose [Mass/Vol] 131 mg/dL High 70-99 [facility] Comment on above: Performed By: #### H H, BMPX #### [facility] [address] [place] [address] [employer]: Luis Solis MD Potassium [Moles/Vol] 4.3 mmol/L Normal 3.7-5.3 [facility] Comment on above: Performed By: #### H H, BMPX #### [facility] [employer] [address] [place] [address] Mathematician Research: Luis Solis MD Sodium [Moles/Vol] 136 mmol/L Normal 135-144 [facility] Comment on above: Performed By: #### H H, BMPX #### [facility] [employer] [address] [place] [address] Mathematician Research: Luis Solis MD Urea nitrogen [Mass/Vol] 17 mg/dL Normal 8-23 [facility] Comment on above: Performed By: #### H H, BMPX #### [employer] [address] [place] [address]5542 Mathematician Research: Luis Solis MD Hemoglobin and Hematocriton 12-10-2022 Hematocrit (Bld) [Volume fraction] 25.5 % Low 36.3 - 47.1 % [facility] Hemoglobin (Bld) [Mass/Vol] 7.9 g/dL Low 11.9 - 15.1 g/dL [facility] Interpretation and review of laboratory results Abnormal [facility] Hgb/Hcton 12-10-2022 Hematocrit (Bld) [Volume fraction] 25.5 % Low 36.3-47.1 [facility] Comment on above: Performed By: #### H H, BMPX #### [facility] [address] [place], [place] [phone] Mathematician Research: Luis Solis MD Hemoglobin (Bld) [Mass/Vol] 7.9 g/dL Low 11.9-15.1 [facility] Comment on above: Performed By: #### H H, BMPX #### [facility] [address] [place] [address] Mathematician Research: Luis Solis MD Laboratory - Blood bankon Blood product type Nom (BPU) Leukocyte Reduced Red Cell [facility] No Panel Informationon 12-10 Blood Bank ISBT Product Blood Type 9500 [facility] Blood Bank Unit Type and Rh Negative [facility] Crossmatch Result COMPATIBLE [facility] Dispense Status TRANSFUSED [facility] Transfusion Status OK TO TRANSFUSE [facility] Unit Divison 0 [facility] POC Glucose Fingerstickon Glucose [Mass/Vol] 105 mg/dL 65 - 105 mg/dL [facility] Glucose [Mass/Vol] 119 mg/dL High 65 - 105 mg/dL [facility] Interpretation and review of laboratory results Abnormal [facility] Glucose [Mass/Vol] 159 mg/dL High 65 - 105 mg/dL [facility] Interpretation and review of laboratory results Abnormal [facility] Glucose [Mass/Vol] 70 mg/dL 65 - 105 mg/dL [facility] Glucose [Mass/Vol] 41 mg/dL Low 65 - 105 mg/dL [facility] Comment on above: Critical Noted Interpretation and review of laboratory results Abnormal [facility] TYPE AND SCREENon 12-10-2022 ABO/Rh Negative [facility] Arm Band Number [id number] [facility] Blood Bank Blood Product Expiration Date [facility] Blood Bank Blood Product Expiration Date [facility] Blood Bank Blood Product Expiration Date [facility] Blood product unit ID (Dose) [#] [id number] [facility] Blood product unit ID (Dose) [#] [id number] [facility] Blood product unit ID (Dose) [#] [id number] [facility] Expiration Date 12/10/2022,2359 [facility] Product Code Blood Bank [id number] [facility] Product Code Blood Bank [id number] [facility] Product Code Blood Bank [id number] [facility] Unit Issue Date/Time [id number] [facility] Unit Issue Date/Time [id number] [facility] Unit Issue Date/Time [id number] [facility] Basic Metab w/rfx MGon 12-09 Anion gap [Moles/Vol] 10 mmol/L Normal 9-17 [facility] Comment on above: Performed By: #### H H, BMPX #### [employer] [address] [place], [place] [phone] Mathematician Research: Luis Solis MD Calcium [Mass/Vol] 8.6 mg/dL Normal 8.6-10.4 [facility] Comment on above: Performed By: #### H H, BMPX #### [employer] [address] [phone] Mathematician Research: Luis Solis MD Chloride [Moles/Vol] 106 mmol/L Normal 98-107 [facility] Comment on above: Performed By: #### H H, BMPX #### [employer] [address] [place] [address] Mathematician Research: Luis Solis MD CO2 [Moles/Vol] 21 mmol/L Normal 20-31 [facility] Comment on above: Performed By: #### H H, BMPX #### [facility] [employer] [address] [place] [address]608 Mathematician Research: Luis Solis MD Creatinine [Mass/Vol] 1.33 mg/dL High 0.50-0.90 [facility] Comment on above: Performed By: #### H H, BMPX #### [address] [address] [employer]: Luis Solis MD GFR/1.73 sq M.predicted among non-blacks MDRD (S/P/Bld) [Vol rate/Area] 41 mL/min/{1.73_m2} Low >60 [facility] Comment on above: Result Comment: [...] Performed By: #### H H, BMPX #### [address] [address] [employer]hematic[employer] Research: Luis Solis MD Glucose [Mass/Vol] 102 mg/dL High 70-99 [facility] Comment on above: Performed By: #### H H, BMPX #### [facility] [employer] [address] [place] [address] 9[address]01 Mathematician Research: Luis Solis MD Potassium [Moles/Vol] 4.1 mmol/L Normal 3.7-5.3 [facility] Comment on above: Performed By: #### H H, BMPX #### [facility] [address] [place], [place] [phone] Mathematician Research: Luis Solis MD Sodium [Moles/Vol] 137 mmol/L Normal 135-144 [facility] Comment on above: Performed By: #### H H, BMPX #### [facility] [address] [place], [place] [phone] Mathematician Research: Luis Solis MD Urea nitrogen [Mass/Vol] 19 mg/dL Normal 8-23 [facility] Comment on above: Performed By: #### H H, BMPX #### [facility] [address] [place], [place] [phone] Mathematician Research: Luis Solis MD Basic Metabolic Panel w/ Ref pierre to MGon 12-09-2022 Anion gap [Moles/Vol] 10 mmol/L 9 - 17 mmol/L [facility] Calcium [Mass/Vol] 8.6 mg/dL 8.6 - 10.4 mg/dL [facility] Chloride [Moles/Vol] 106 mmol/L 98 - 107 mmol/L [facility] CO2 [Moles/Vol] 21 mmol/L 20 - 31 mmol/L [facility] Creatinine [Mass/Vol] 1.33 mg/dL High 0.50 - 0.90 mg/dL [facility] GFR/1.73 sq M.predicted MDRD (S/P/Bld) [Vol rate/Area] 41 mL/min/{1.73_m2} Low - PINF [facility] Comment on above: Effective Aug 17, 2022 [...] 102 mg/dL High 70 - 99 mg/dL [facility] Interpretation and review of laboratory results Abnormal [facility] Potassium [Moles/Vol] 4.1 mmol/L 3.7 - 5.3 mmol/L [facility] Sodium [Moles/Vol] 137 mmol/L 135 - 144 mmol/L [facility] Urea nitrogen (BldV) [Mass/Vol] 19 mg/dL 8 - 23 mg/dL [facility] Hemoglobin and Hematocriton 12-09-2022 Hematocrit (Bld) [Volume fraction] 25.6 % Low 36.3 - 47.1 % [facility] Hemoglobin (Bld) [Mass/Vol] 8.0 g/dL Low 11.9 - 15.1 g/dL [facility] Interpretation and review of laboratory results Abnormal [facility] Hematocrit (Bld) [Volume fraction] 23.5 % Low 36.3 - 47.1 % [facility] Hemoglobin (Bld) [Mass/Vol] 7.1 g/dL Low 11.9 - 15.1 g/dL [facility] Interpretation and review of laboratory results Abnormal [facility] Hgb/Hcton 12-09-2022 Hematocrit (Bld) [Volume fraction] 25.6 % Low 36.3-47.1 [facility] Comment on above: Performed By: #### H H, BMPX #### [employer] [address] [place] [address] Mathematician Research: Luis Solis MD Hemoglobin (Bld) [Mass/Vol] 8.0 g/dL Low 11.9-15.1 [facility] Comment on above: Performed By: #### H H, BMPX #### [employer] [address] [place] [address] Mathematician Research: Luis Solis MD Hematocrit (Bld) [Volume fraction] 23.5 % Low 36.3-47.1 [facility] Comment on above: Performed By: #### H H, BMPX #### [employer] [address] [place], [place] [phone] Mathematician Research: Luis Solis MD Hemoglobin (Bld) [Mass/Vol] 7.1 g/dL Low 11.9-15.1 [facility] Comment on above: Performed By: #### H H, BMPX #### [facility] [employer] [address] [place], [place] [phone] Mathematician Research: Luis Solis MD POC Glucose Fingerstickon Glucose [Mass/Vol] 143 mg/dL High 65 - 105 mg/dL [facility] Interpretation and review of laboratory results Abnormal [facility] Glucose [Mass/Vol] 96 mg/dL 65 - 105 mg/dL [facility] Glucose [Mass/Vol] 114 mg/dL High 65 - 105 mg/dL [facility] Interpretation and review of laboratory results Abnormal [facility] Glucose [Mass/Vol] 111 mg/dL High 65 - 105 mg/dL [facility] Interpretation and review of laboratory results Abnormal [facility] Type + Screenon 12-09-2022 Type + Screen Sample Expiration 12/10/2022,2359 Arm Band Number [id number] ABO/Rh(D) O NEGATIVE Antibody Screen NEGATIVE Unit Number [id number] Blood Component Type Leukocyte Reduced Red Cell Unit Division 00 Status of Unit TRANSFUSED Transfusion Status OK TO TRANSFUSE Crossmatch Result COMPATIBLE Unit Number [id number] Blood Component Type Leukocyte Reduced Red Cell Unit Division 00 Status of Unit TRANSFUSED Transfusion Status OK TO TRANSFUSE Crossmatch Result COMPATIBLE Unit Number [id number] Blood Component Type Leukocyte Reduced Red Cell Unit Division 00 Status of Unit TRANSFUSED Transfusion Status OK TO TRANSFUSE Crossmatch Result COMPATIBLE Normal [facility] Comment on above: Performed By: #### R EJEC, BMPX #### [facility] [employer] [address] [place], [place] [phone] Mathematician Research: Luis Solis MD Basic Metab w/rfx MGon 12-08 Anion gap [Moles/Vol] 9 mmol/L Normal 9-17 [facility] Comment on above: Performed By: #### R EJEC, BMPX #### [address] [address] [employer]: Luis Solis MD Calcium [Mass/Vol] 8.6 mg/dL Normal 8.6-10.4 [facility] Comment on above: Performed By: #### R EJEC, BMPX #### [facility] [employer] [address] [place] [address] Mathematician Research: Luis Solis MD Chloride [Moles/Vol] 106 mmol/L Normal 98-107 [facility] Comment on above: Performed By: #### R EJEC, BMPX #### [address] [address] [employer]: Luis Solis MD CO2 [Moles/Vol] 24 mmol/L Normal 20-31 [facility] Comment on above: Performed By: #### R EJEC, BMPX #### [facility] [employer] [address] [place] [address] Mathematician Research: Luis Solis MD Creatinine [Mass/Vol] 1.33 mg/dL High 0.50-0.90 [facility] Comment on above: Performed By: #### R EJEC, BMPX #### [address] [address] [employer] Research: Luis Solis MD GFR/1.73 sq M.predicted among non-blacks MDRD (S/P/Bld) [Vol rate/Area] 41 mL/min/{1.73_m2} Low >60 [facility] Comment on above: Result Comment: [...] Jeff DALE BMPX #### [email or web address] [address] [place] [address]3906 Mathematician Research: Luis Solis MD Glucose [Mass/Vol] 160 mg/dL High 70-99 [facility] Comment on above: Performed By: #### Jeff DALE BMPX #### [email or web address] [address] [place] [address] Mathematician Research: Luis Solis MD Potassium [Moles/Vol] 4.4 mmol/L Normal 3.7-5.3 [facility] Comment on above: Performed By: #### Jeff DALE BMPX #### [email or web address] [address] [place] [address] Mathematician Research: Luis Solis MD Sodium [Moles/Vol] 139 mmol/L Normal 135-144 [facility] Comment on above: Performed By: #### Jeff DALE BMPX #### [email or web address] [address] [place] [address] Mathematician Research: Luis Solis MD Urea nitrogen [Mass/Vol] 21 mg/dL Normal 8-23 [facility] Comment on above: Performed By: #### Jeff DALE BMPX #### [email or web address] [address] [place] [address] Mathematician Research: Luis Solis MD Basic Metabolic Panelon 11-16 Anion gap [Moles/Vol] 7 mmol/L Low 9 - 17 mmol/L [facility] [employer] Calcium [Mass/Vol] 8.5 mg/dL Low 8.6 - 10.4 mg/dL [facility] [employer] Chloride [Moles/Vol] 110 mmol/L High 98 - 107 mmol/L [facility] [employer] CO2 [Moles/Vol] 25 mmol/L 20 - 31 mmol/L [facility] [employer] Creatinine [Mass/Vol] 1.43 mg/dL High 0.50 - 0.90 mg/dL [facility] [employer] GFR/1.73 sq M.predicted MDRD (S/P/Bld) [Vol rate/Area] 38 mL/min/{1.73_m2} Low - PINF [facility] Comment on above: Effective Aug 17, [...] 124 mg/dL High 70 - 99 mg/dL [facility] Interpretation and review of laboratory results Abnormal [facility] [employer] Potassium [Moles/Vol] 4.7 mmol/L 3.7 - 5.3 mmol/L [facility] Sodium [Moles/Vol] 142 mmol/L 135 - 144 mmol/L [facility] [employer] Urea nitrogen (BldV) [Mass/Vol] 23 mg/dL 8 - 23 mg/dL [facility] [employer] Basic Metabolic Panel w/ Ref pierre to MGon 12-08-2022 Anion gap [Moles/Vol] 9 mmol/L 9 - 17 mmol/L [facility] [employer] Calcium [Mass/Vol] 8.6 mg/dL 8.6 - 10.4 mg/dL [facility] [employer] Chloride [Moles/Vol] 106 mmol/L 98 - 107 mmol/L [facility] [employer] CO2 [Moles/Vol] 24 mmol/L 20 - 31 mmol/L [facility] [employer] Creatinine [Mass/Vol] 1.33 mg/dL High 0.50 - 0.90 mg/dL [facility] [employer] GFR/1.73 sq M.predicted MDRD (S/P/Bld) [Vol rate/Area] 41 mL/min/{1.73_m2} Low - PINF [facility] [employer] Comment on above: Effective Aug 17, 2022 [...] 160 mg/dL High 70 - 99 mg/dL [facility] Interpretation and review of laboratory results Abnormal [facility] Potassium [Moles/Vol] 4.4 mmol/L 3.7 - 5.3 mmol/L [facility] Sodium [Moles/Vol] 139 mmol/L 135 - 144 mmol/L [facility] Urea nitrogen (BldV) [Mass/Vol] 21 mg/dL 8 - 23 mg/dL [facility] Basic Metabolic Profon 12-08 Anion gap [Moles/Vol] 7 mmol/L Low 9-17 [facility] Comment on above: Performed By: #### B MP, CBC #### [email or web address] [address] [place] [address] Mathematician Research: Luis Solis MD Calcium [Mass/Vol] 8.5 mg/dL Low 8.6-10.4 [facility] Comment on above: Performed By: #### B MP, CBC #### [email or web address] [address] [place] [address] Mat[employer] Research: Luis Solis MD Chloride [Moles/Vol] 110 mmol/L High 98-107 [facility] Comment on above: Performed By: #### B MP, CBC #### [email or web address] [address] [place] [address] Mathematician Research: Luis Solis MD CO2 [Moles/Vol] 25 mmol/L Normal 20-31 [facility] Comment on above: Performed By: #### B MP, CBC #### [facility] [address] [place] [address] Mathematician Research: Luis Solis MD Creatinine [Mass/Vol] 1.43 mg/dL High 0.50-0.90 [facility] Comment on above: Performed By: #### B MP, CBC #### [facility] [employer] [address] [place] [address] Mat[employer] Research: Luis Solis MD GFR/1.73 sq M.predicted among non-blacks MDRD (S/P/Bld) [Vol rate/Area] 38 mL/min/{1.73_m2} Low >60 [facility] Comment on above: Result Comment: [...] Performed By: #### B MP, CBC #### [facility] [employer] [address] [place] [address] Mathematician Research: Luis Solis MD Glucose [Mass/Vol] 124 mg/dL High 70-99 [facility] Comment on above: Performed By: #### B MP, CBC #### [facility] [employer] [address] [place] [address] Mathematician Research: Luis Solis MD Potassium [Moles/Vol] 4.7 mmol/L Normal 3.7-5.3 [facility] Comment on above: Performed By: #### B MP, CBC #### [facility] [employer] [address] [place] [address] Mathematician Research: Luis Solis MD Sodium [Moles/Vol] 142 mmol/L Normal 135-144 [facility] Comment on above: Performed By: #### B MP, CBC #### [facility] [employer] [address] [place] [address] Mathematician Research: Luis Solis MD Urea nitrogen [Mass/Vol] 23 mg/dL Normal 8-23 [facility] Comment on above: Performed By: #### B MP, CBC #### [address] [address] [employer]: Luis Solis MD CBCon 12-08-2022 Erythrocyte distribution width (RBC) [Ratio] 17.8 % High 11.8-14.4 [facility] Comment on above: Performed By: #### B MP, CBC #### [facility] [employer] [address] [place] [address] Mathematician Research: Luis Solis MD Hematocrit (Bld) [Volume fraction] 22.0 % Low 36.3-47.1 [facility] Comment on above: Performed By: #### B MP, CBC #### [address] [address] [employer]: Luis Solis MD Hemoglobin (Bld) [Mass/Vol] 6.6 g/dL Critically low 11.9-15.1 [facility] Comment on above: Performed By: #### B MP, CBC #### [facility] [employer] [address] [place] [address] Mathematician Research: Luis Solis MD MCH (RBC) [Entitic mass] 27.5 pg Normal 25.2-33.5 [facility] Comment on above: Performed By: #### B MP, CBC #### [facility] [employer] [address] [place] [address] Mathematician Research: Luis Solis MD MCHC (RBC) [Mass/Vol] 30.0 g/dL Normal 28.4-34.8 [facility] Comment on above: Performed By: #### B MP, CBC #### [facility] [employer] [address] [place] [address] Mathematician Research: Luis Solis MD MCV (RBC) [Entitic vol] 91.7 fL Normal 82.6-102.9 [facility] Comment on above: Performed By: #### B MP, CBC #### [address] [address] [employer]: Luis Solis MD NRBC Automated 0.0 per 100 WBC Normal 0.0 [facility] Comment on above: Performed By: #### B MP, CBC #### [address] [address] [employer]: Luis Solis MD Platelet mean volume (Bld) [Entitic vol] 10.3 fL Normal 8.1-13.5 [facility] Comment on above: Performed By: #### B MP, CBC #### [address] [address] [employer]: Luis Solis MD Platelets (Bld) [#/Vol] 250 10*3/uL Normal 138-453 [facility] Comment on above: Performed By: #### B MP, CBC #### [address] [address] [employer]: Luis Solis MD RBC (Bld) [#/Vol] 2.40 10*6/uL Low 3.95-5.11 [facility] Comment on above: Performed By: #### B MP, CBC #### [address] [address] [employer]: Luis Solis MD WBC (Bld) [#/Vol] 9.2 10*3/uL Normal 3.5-11.3 [facility] Comment on above: Performed By: #### B MP, CBC #### [address] [address] [employer]: Lusi Solis MD Hematocrit (Bld) [Volume fraction] 22.0 % Low 36.3 - 47.1 % [facility] Hemoglobin (Bld) [Mass/Vol] 6.6 g/dL Critically low 11.9 - 15.1 g/dL [facility] Interpretation and review of laboratory results Abnormal [facility] MCH (RBC) [Entitic mass] 27.5 pg 25.2 - 33.5 pg [facility] MCHC (RBC) [Mass/Vol] 30.0 g/dL 28.4 - 34.8 g/dL [facility] MCV (RBC) [Entitic vol] 91.7 fL 82.6 - 102.9 fL [facility] NRBC Automated 0.0 0.0 per 100 WBC [facility] Platelet distribution width (Bld) [Ratio] 17.8 % High 11.8 - 14.4 % [facility] Platelet mean volume (Bld) [Entitic vol] 10.3 fL 8.1 - 13.5 fL [facility] Platelets (Bld) [#/Vol] 250 10*3/uL [facility] RBC (Bld) [#/Vol] 2.40 10*6/uL Low 3.95 - 5.11 m/uL [facility] WBC (Bld) [#/Vol] 9.2 10*3/uL [facility] Hemoglobin and Hematocriton 12-08-2022 Hematocrit (Bld) [Volume fraction] 24.4 % Low 36.3 - 47.1 % [facility] Hemoglobin (Bld) [Mass/Vol] 7.4 g/dL Low 11.9 - 15.1 g/dL [facility] Interpretation and review of laboratory results Abnormal [facility] Hematocrit (Bld) [Volume fraction] 24.6 % Low 36.3 - 47.1 % [facility] Hemoglobin (Bld) [Mass/Vol] 7.7 g/dL Low 11.9 - 15.1 g/dL [facility] Interpretation and review of laboratory results Abnormal [facility] Hematocrit (Bld) [Volume fraction] 22.9 % Low 36.3 - 47.1 % [facility] Hemoglobin (Bld) [Mass/Vol] 7.6 g/dL Low 11.9 - 15.1 g/dL [facility] Interpretation and review of laboratory results Abnormal [facility] Hematocrit (Bld) [Volume fraction] 21.9 % Low 36.3 - 47.1 % [facility] Hemoglobin (Bld) [Mass/Vol] 6.5 g/dL Critically low 11.9 - 15.1 g/dL [facility] Interpretation and review of laboratory results Abnormal [facility] Hgb/Hcton 12-08-2022 Hematocrit (Bld) [Volume fraction] 24.4 % Low 36.3-47.1 [facility] Comment on above: Performed By: #### R EJEC, BMPX #### [employer] [address] [place] [address] [phone] [employer]: Luis Solis MD Hemoglobin (Bld) [Mass/Vol] 7.4 g/dL Low 11.9-15.1 [facility] Comment on above: Performed By: #### R ZAINABEC, BMPX #### [employer] [address] [place] [address] [phone] [employer]: Lius Solis MD Hematocrit (Bld) [Volume fraction] 24.6 % Low 36.3-47.1 [facility] Comment on above: Performed By: #### R EJEC, BMPX #### [employer] [address] [place] [address] [phone] [employer]: Luis Solis MD Hemoglobin (Bld) [Mass/Vol] 7.7 g/dL Low 11.9-15.1 [facility] Comment on above: Performed By: #### R EJEC, BMPX #### [employer] [address] [place] [address] [phone] [employer] Research: Luis Solis MD Hematocrit (Bld) [Volume fraction] 22.9 % Low 36.3-47.1 [facility] Comment on above: Performed By: #### R CHITO BMPX #### [employer] [address] [place] [address] 10387 Mathematician Research: Luis Solis MD Hemoglobin (Bld) [Mass/Vol] 7.6 g/dL Low 11.9-15.1 [facility] Comment on above: Performed By: #### Jeff DALE BMPX #### [employer] [address] [place] [address] 55359 Mathematician Research: Luis Solis MD Hematocrit (Bld) [Volume fraction] 21.9 % Low 36.3-47.1 [facility] Comment on above: Performed By: #### H H #### [facility] [employer] [address] [place] [address] 18463 Mathematician Research: Luis Solis MD Hemoglobin (Bld) [Mass/Vol] 6.5 g/dL Critically low 11.9-15.1 [facility] Comment on above: Performed By: #### H H #### [facility] [address] [place] [address] 538[address] Mat[employer] Research: Luis Solis MD Hematocrit (Bld) [Volume fraction] 23.7 % Low 36.3-47.1 [facility] Comment on above: Performed By: #### Jeff DALE BMPX #### [facility] [address] [place] [address] [phone] [employer]: Luis Solis MD Hemoglobin (Bld) [Mass/Vol] 7.6 g/dL Low 11.9-15.1 [facility] Comment on above: Performed By: #### R CHITO BMPX #### [facility] [employer] [address] [place] [address] [phone] Mathematician Research: Luis Soils MD POC Glucose Fingerstickon Glucose [Mass/Vol] 129 mg/dL High 65 - 105 mg/dL [facility] Interpretation and review of laboratory results Abnormal [facility] Glucose [Mass/Vol] 138 mg/dL High 65 - 105 mg/dL [facility] Interpretation and review of laboratory results Abnormal [facility] Glucose [Mass/Vol] 164 mg/dL High 65 - 105 mg/dL [facility] Interpretation and review of laboratory results Abnormal [facility] SPECIMEN REJECTIONon 023 Ordered Test [facility] Reason for Rejection Unable to perform testing: Specimen clotted. [facility] Specimen source Nom (Unsp spec) .BLOOD [facility] Specimen Rejectionon 023 Reason for rejection Unable to perform testing: Specimen clotted. [facility] Comment on above: Performed By: #### R CHITO, BMPX #### [employer] [address] [place], [place] [phone] Mat[employer]ian Research: Luis Solis MD Source of sample .BLOOD [facility] Comment on above: Performed By: #### R CHITO, BMPX #### [employer] [address] [place] [address] [phone] Mat[employer] Research: Luis Solis MD Test ordered [facility] Comment on above: Performed By: #### R CHITO, BMPX #### [employer] [address] [place] [address] [phone] [employer] Research: Luis Solis MD Activated clotting timeon Activated Clotting Time 262 High [facility] Interpretation and review of laboratory results Abnormal [facility] CHLORIDE (POC)on 12-07-2022 Chloride [Moles/Vol] 107 mmol/L 98 - 107 mmol/L [facility] Catheterization and angiogra phy procedure details panelon 12-07-2022 [facility] Work Phone: Creatinine W/GFR Point of Ca reon 12-07-2022 Creatinine [Mass/Vol] 1.35 mg/dL High 0.51 - 1.19 mg/dL [facility] eGFR, POC 41 mL/min/1.7 3m2 [facility] Comment on above: Effective Aug 17, 2022 [...] 23.7 % Low 36.3 - 47.1 % [facility] Hemoglobin (Bld) [Mass/Vol] 7.6 g/dL Low 11.9 - 15.1 g/dL [facility] Interpretation and review of laboratory results Abnormal [facility] Hematocrit (Bld) [Volume fraction] 24.9 % Low 36.3 - 47.1 % [facility] Hemoglobin (Bld) [Mass/Vol] 7.2 g/dL Low 11.9 - 15.1 g/dL [facility] Interpretation and review of laboratory results Abnormal [facility] Hemoglobin and hematocrit, b loodon 12-07-2022 Hematocrit (Bld) [Volume fraction] 20 % Low 36 - 46 % [facility] Hemoglobin (Bld) [Mass/Vol] 6.9 g/dL Critically low 12.0 - 16.0 g/dL [facility] Interpretation and review of laboratory results Abnormal [facility] Hematocrit (Bld) [Volume fraction] 30 % Low 36 - 46 % [facility] Hemoglobin (Bld) [Mass/Vol] 10.1 g/dL Low 12.0 - 16.0 g/dL [facility] Hgb/Hcton 12-07-2022 Hematocrit (Bld) [Volume fraction] 24.9 % Low 36.3-47.1 [facility] Comment on above: Performed By: #### R EJEC, BMPX #### [employer] [address] [place], [place] [phone] [employer]ian Research: Luis Solis MD Hemoglobin (Bld) [Mass/Vol] 7.2 g/dL Low 11.9-15.1 [facility] Comment on above: Performed By: #### R EJEC, BMPX #### [employer] [address] [place], [place] [phone] [employer] Research: Luis Solis MD No Panel Informationon 12-07 Interpretation and review of laboratory results Abnormal [facility] [employer] [facility] [employer] POC Glucose Fingerstickon Glucose [Mass/Vol] 197 mg/dL High 65 - 105 mg/dL [facility] Interpretation and review of laboratory results Abnormal [facility] [employer] Glucose [Mass/Vol] 101 mg/dL 65 - 105 mg/dL [facility] [employer] POCT Glucoseon 12-07-2022 Glucose [Mass/Vol] 83 mg/dL 74 - 100 mg/dL [facility] [employer] POCT urea (BUN)on 12-07-2022 Urea nitrogen [Mass/Vol] 25 mg/dL 8 - 26 mg/dL [facility] [employer] POTASSIUM (POC)on 12-07-2022 Potassium [Moles/Vol] 4.2 mmol/L 3.5 - 4.5 mmol/L [facility] SODIUM (POC)on 12-07-2022 Sodium [Moles/Vol] 142 mmol/L 138 - 146 mmol/L [facility] [employer] VL DUP LOWER EXTREMITY ARTER IES RIGHTon 12-07-2022 Darnell Monique MD - 12/07/2022 [facility] Vascular Lower Extremities Arterial Duplex Procedure Patient Name CHRISTA Date of Study 12/07/2022 [facility] Date of 1945 Gender Female Age 77 year(s) Race Room Number 050 Height: 65 inch, 165.1 cm Corporate ID # [id number] Weight: 208 pounds, 94.3 kg Patient BSA: 2.01 m^2 BMI: 34.61 kg/m^2 MR # [id number] Application Specialist Whit Gan RVT Interpreting Physician Darnell Monique [...] ! ! ! +---------++-----+-----+----- -+----+------++---+-----+---- --+----+--------- + [employer] Work Phone: Radiology Study observation (narrative) [employer] Phone: VL DUP LOWER EXTREMITY ARTER IES RIGHTOrdered By: Darnell Burk on 12-07-2022 [employer] Phone: CHLORIDE (POC)on 11-24-2022 Chloride [Moles/Vol] 105 mmol/L 98 - 107 mmol/L [employer] Creatinine W/GFR Point of Ca reon 11-24-2022 Creatinine [Mass/Vol] 1.5 mg/dL High 0.51 - 1.19 mg/dL [employer] eGFR, POC 36 mL/min/1.7 3m2 [employer] Comment on above: Effective Aug 17, 2022 [...] renal tubular secretion. Hemoglobin and hematocrit, [facility] 11-24-2022 Hematocrit (Bld) [Volume fraction] 26 % Low 36 - 46 % [employer] Hemoglobin (Bld) [Mass/Vol] 8.7 g/dL Low 12.0 - 16.0 g/dL [facility] No Panel Informationon 11-24 Interpretation and review of laboratory results Abnormal [facility] POCT Glucoseon 11-24-2022 Glucose [Mass/Vol] 135 mg/dL High 74 - 100 mg/dL [facility] POCT urea (BUN)on 11-24-2022 POC BUN Result not available. 8 - 26 mg/dL [facility] POTASSIUM (POC)on 11-24-2022 Potassium [Moles/Vol] 5.3 mmol/L High 3.5 - 4.5 mmol/L [facility] Platelet Counton 11-24-2022 Platelets (Bld) [#/Vol] 314 10*3/uL Normal 138-453 [facility] Comment on above: Performed By: #### P LT #### [facility] [address] [place] [address] [phone] [employer]: Luis Solis MD Platelets (Bld) [#/Vol] 314 10*3/uL [facility] SODIUM (POC)on 11-24-2022 Sodium [Moles/Vol] 142 mmol/L 138 - 146 mmol/L [facility] Cult,Bloodon 10-03-2022 Cult,Blood Specimen Description .BLOOD Special Requests L AC 10ML Culture NO GROWTH 5 DAYS Report Status FINAL 10/03/2022 Normal [facility] Comment on above: Performed By: #### B C #### [facility] [address] [place] [address] [phone] [employer]: Luis Solis MD Cult,Blood Specimen Description .BLOOD Special Requests R AC 10ML Culture NO GROWTH 5 DAYS Report Status FINAL 10/03/2022 Normal [facility] Comment on above: Performed By: #### H H, BMPX #### [facility] [address] [place] [address] [phone] [employer]: Luis Solis MD Basic Metab w/rfx MGon 09-30 Anion gap [Moles/Vol] 9 mmol/L Normal - [facility] Comment on above: Performed By: #### H H, BMPX #### [facility] [address] [place] [address] 55521 Mat[employer] Research: Luis Solis MD Calcium [Mass/Vol] 8.8 mg/dL Normal 8.6-10.4 [facility] Comment on above: Performed By: #### H H, BMPX #### [facility] [address] [place] [address] [phone] [employer]: Luis Solis MD Chloride [Moles/Vol] 102 mmol/L Normal 98-107 [facility] Comment on above: Performed By: #### H H, BMPX #### [facility] [address] [place] [address] 04208 Mat[employer] Research: Luis Solis MD CO2 [Moles/Vol] 28 mmol/L Normal 20-31 [facility] Comment on above: Performed By: #### H H, BMPX #### [facility] [address] [place] [address] 98348 Mat[employer] Research: Luis Solis MD Creatinine [Mass/Vol] 1.28 mg/dL High 0.50-0.90 [facility] Comment on above: Performed By: #### H H, BMPX #### [address] [address] [employer]: Luis Solis MD GFR/1.73 sq M.predicted among non-blacks MDRD (S/P/Bld) [Vol rate/Area] 43 mL/min/{1.73_m2} Low >60 [facility] Comment on above: Result Comment: [...] Performed By: #### H H, BMPX #### [facility] [employer] [address] [place] [address] [phone] Mathematician Research: Luis Solis MD Glucose [Mass/Vol] 141 mg/dL High 70-99 [facility] Comment on above: Performed By: #### H H, BMPX #### [address] [address] [employer]: Luis Solis MD Potassium [Moles/Vol] 4.0 mmol/L Normal 3.7-5.3 [facility] Comment on above: Performed By: #### H H, BMPX #### [facility] [employer] [address] [place] [address] 64714 Mat[employer] Research: Luis Solis MD Sodium [Moles/Vol] 139 mmol/L Normal 135-144 [facility] Comment on above: Performed By: #### H H, BMPX #### [facility] [employer] [address] [place] [address] 68108 [employer]: Luis Solis MD Urea nitrogen [Mass/Vol] 18 mg/dL Normal 8-23 [facility] Comment on above: Performed By: #### H H, BMPX #### [address] [address] [employer]: Luis Solis MD Cult,Urineon 09-30-2022 Cult,Urine Specimen Description .URINE,STRAIGHT CATHETER Culture ESCHERICHIA COLI >[id number] CFU/ML AEROCOCCUS URINAE 50 to 100,000 CFU/ML [...] Trimethoprim/Sulfa <=20 SUSCEPTIBLE Piperacillin/Tazobactam <=4 SUSCEPTIBLE Susceptible [facility] Comment on above: Performed By: #### H H, BMPX #### [employer] [facility] [place] [address] Mathematician Research: Luis Solis MD APTTon 09-29-2022 aPTT Coag (Bld) [Time] 30.4 s Normal 20.5-30.5 [facility] Comment on above: Result Comment: IV Heparin Therapy Range: 48.6-77.8 Performed By: #### H H, BMPX #### [employer] [address] [place] [address] Mathematician Research: Luis Solis MD Procalcitoninon 09-29-2022 Procalcitonin 0.23 ng/mL High <0.09 [facility] Comment on above: Result Comment: [...] entered into the Change in Procalcitonin Calculator ([email or web address]-[email or web address]) to determine the patient's Mortality Risk Prognosis In healthy neonates, plasma Procalcitonin (PCT) concentrations increase gradually after , reaching peak values at about 24 hours of age then decrease to normal values below 0.5 ng/mL by 48-72 hours of age. Performed By: #### R EJEC, BMPX #### [facility] [employer] [address] [place] [address] 06111 [employer]: Luis Solis MD APTTon 09-28-2022 aPTT Coag (Bld) [Time] 110.7 s Critically high 20.5-30.5 [facility] Comment on above: Result Comment: IV Heparin Therapy Range: 48.6-77.8 Performed By: #### P TT #### [address] [address] [employer]: Luis Solis MD aPTT Coag (Bld) [Time] 24.1 s Normal 20.5-30.5 [facility] Comment on above: Result Comment: IV Heparin Therapy Range: 48.6-77.8 Performed By: #### H H, BMPX #### [facility] [employer] [address] [place] [address] 84056 [employer] Research: Luis Solis MD aPTT Coag (Bld) [Time] 22.6 s Normal 20.5-30.5 [facility] Comment on above: Result Comment: IV Heparin Therapy Range: 48.6-77.8 Performed By: #### H H, BMPX #### [facility] [employer] [address] [place] [address] 58313 [employer]: Luis Solis MD Basic Metab w/rfx MGon 09-28 Anion gap [Moles/Vol] 10 mmol/L Normal 9-17 [facility] Comment on above: Performed By: #### R EJEC, BMPX #### [facility] [employer] [address] [place] [address] 67806 [employer]: Luis Solis MD Calcium [Mass/Vol] 7.6 mg/dL Low 8.6-10.4 [facility] Comment on above: Performed By: #### R EJEC, BMPX #### [facility] [address] [place] [address] 24399 [employer]: Luis Solis MD Chloride [Moles/Vol] 107 mmol/L Normal 98-107 [facility] Comment on above: Performed By: #### R EJEC, BMPX #### [facility] [address] [place] [address] 09606 [employer]: Luis Solis MD CO2 [Moles/Vol] 23 mmol/L Normal 20-31 [facility] Comment on above: Performed By: #### R EJEC, BMPX #### [facility] [employer] [address] [place] [address] 41100 [employer] Research: Luis Solis MD Creatinine [Mass/Vol] 1.33 mg/dL High 0.50-0.90 [facility] Comment on above: Performed By: #### R EJEC, BMPX #### [address] [address] [employer]: Luis Solis MD GFR/1.73 sq M.predicted among non-blacks MDRD (S/P/Bld) [Vol rate/Area] 41 mL/min/{1.73_m2} Low >60 [facility] Comment on above: Result Comment: [...] renal tubular secretion. Performed By: #### R EJEC, BMPX #### [address] [address] [employer]: Luis Solis MD Glucose [Mass/Vol] 243 mg/dL High 70-99 [facility] Comment on above: Performed By: #### R CHITO, BMPX #### [facility] [employer] [address] [place] [address]15 Mat[employer] Research: Luis Solis MD Potassium [Moles/Vol] 4.5 mmol/L Normal 3.7-5.3 [facility] Comment on above: Performed By: #### R EJEC, BMPX #### [facility] [address] [place] [address] 21999 [employer]: Luis Solis MD Sodium [Moles/Vol] 140 mmol/L Normal 135-144 [facility] Comment on above: Performed By: #### R CHITO, BMPX #### [facility] [employer] [address] [place] [address]608 [employer] Research: Luis Solis MD Urea nitrogen [Mass/Vol] 21 mg/dL Normal 8-23 [facility] Comment on above: Performed By: #### R CHITO, BMPX #### [facility] [employer] [address] [place] [address] 31706 [employer]: Luis Solis MD Brain Natri. Peptideon 09-28 Natriuretic peptide B (Bld) [Mass/Vol] 5275 pg/mL High <300 [facility] Comment on above: Result Comment: An age-independent cutoff point of 300 pg/ml has a 98% negative predictive value excluding acute heart failure. Performed By: #### H H, BMPX #### [facility] [employer] [address] [place] [address] 50642 [employer]: Luis Solis MD C-Reactive Proteinon CRP [Mass/Vol] 48.0 mg/L High 0.0-5.0 [facility] Comment on above: Performed By: #### R EJEC, BMPX #### [facility] [address] [place] [address] [phone] [employer]: Luis Solis MD CBC with Diffon 09-28-2022 Abs. Basophil 0.06 k/uL Normal 0.00-0.20 [facility] Comment on above: Performed By: #### H H, BMPX #### [address] [address] [employer]: Luis Solis MD Abs.Imm.Granulocy te 0.16 k/uL Normal 0.00-0.30 [facility] Comment on above: Performed By: #### H H, BMPX #### [place] [address] [employer]: Luis Solis MD Abs.Neutrophil (Seg) 10.78 k/uL High 1.50-8.10 [facility] Comment on above: Performed By: #### H H, BMPX #### [place] [address] [employer]: Luis Solis MD Basophils/100 WBC (Bld) 1 % Normal 0-2 [facility] Comment on above: Performed By: #### H H, BMPX #### [place] [address] [employer]: Luis Solis MD Eosinophils (Bld) [#/Vol] 0.20 10*3/uL Normal 0.00-0.44 [facility] Comment on above: Performed By: #### H H, BMPX #### [facility] [employer] [address] [place] [address] [employer]: Luis Solis MD Eosinophils/100 WBC (Bld) 2 % Normal 1-4 [facility] Comment on above: Performed By: #### H H, BMPX #### [facility] [employer] [address] [place] [address] [employer]: Luis Solis MD Erythrocyte distribution width (RBC) [Ratio] 16.7 % High 11.8-14.4 [facility] Comment on above: Performed By: #### H H, BMPX #### [facility] [employer] [address] [place] [address] [employer]: Luis Solis MD Hematocrit (Bld) [Volume fraction] 27.2 % Low 36.3-47.1 [facility] Comment on above: Performed By: #### H H, BMPX #### [facility] [employer] [address] [place] [address] [employer]: Luis Solis MD Hemoglobin (Bld) [Mass/Vol] 8.1 g/dL Low 11.9-15.1 [facility] Comment on above: Performed By: #### H H, BMPX #### [place] [address] [employer]: Luis Solis MD Immature granulocytes/100 WBC (Bld) 1 % High 0 [facility] Comment on above: Performed By: #### H H, BMPX #### [place] [address] [employer]: Luis Solis MD Lymphocytes (Bld) [#/Vol] 0.74 10*3/uL Low 1.10-3.70 [facility] Comment on above: Performed By: #### H H, BMPX #### [facility] [employer] [address] [place] [address] [employer]: Luis Solis MD Lymphocytes/100 WBC (Bld) 6 % Low 24-43 [facility] Comment on above: Performed By: #### H H, BMPX #### [facility] [employer] [address] [place] [address] [employer]: Luis Solis MD MCH (RBC) [Entitic mass] 26.9 pg Normal 25.2-33.5 [facility] Comment on above: Performed By: #### H H, BMPX #### [address] [address] [employer]: Luis Solis MD MCHC (RBC) [Mass/Vol] 29.8 g/dL Normal 28.4-34.8 [facility] Comment on above: Performed By: #### H H, BMPX #### [place] [address] [employer]: Lusi Solis MD MCV (RBC) [Entitic vol] 90.4 fL Normal 82.6-102.9 [facility] Comment on above: Performed By: #### H H, BMPX #### [place] [address] [employer]: Luis Solis MD Monocytes (Bld) [#/Vol] 0.78 10*3/uL Normal 0.10-1.20 [facility] Comment on above: Performed By: #### H H, BMPX #### [place] [address] [employer]: Luis Solis MD Monocytes/100 WBC (Bld) 6 % Normal 3-12 [facility] Comment on above: Performed By: #### H H, BMPX #### [place] [address] [employer]: Luis Solis MD Neutrophil (Seg) 84 % High 36-65 [facility] Comment on above: Performed By: #### H H, BMPX #### [place] [address] [employer]: Luis Solis MD NRBC Automated 0.2 per 100 WBC High 0.0 [facility] Comment on above: Performed By: #### H H, BMPX #### [address] [address] [employer]: Luis Solis MD Platelet mean volume (Bld) [Entitic vol] 9.9 fL Normal 8.1-13.5 [facility] Comment on above: Performed By: #### H H, BMPX #### [address] [address] [employer]: Luis Solis MD Platelets (Bld) [#/Vol] 391 10*3/uL Normal 138-453 [facility] Comment on above: Performed By: #### H H, BMPX #### [address] [address] [employer]: Luis Solis MD RBC (Bld) [#/Vol] 3.01 10*6/uL Low 3.95-5.11 [facility] Comment on above: Performed By: #### H H, BMPX #### [address] [address] [employer]: Luis Solis MD RBC morphology finding Nom (Bld) ANISOCYTOSIS PRESENT Normal [facility] Comment on above: Performed By: #### H H, BMPX #### [address] [address] [employer]: Luis Solis MD WBC (Bld) [#/Vol] 12.7 10*3/uL High 3.5-11.3 [facility] Comment on above: Performed By: #### H H, BMPX #### [address] [address] [employer]: Luis Solis MD CT CHEST PULMONARY EMBOLISM [...] PROVIDED HISTORY: tachjeffery ayala TECHNOLOGIST PROVIDED HISTORY: Tachy, hypoxia Decision Support [...] Matthew Chong MD 09/28/22 Final result Normal [facility] Comp Metabolic Profon 2021 Albumin [Mass/Vol] 3.5 g/dL Normal 3.5-5.2 [facility] Comment on above: Performed By: #### H H, BMPX #### [address] [address] [employer]: Luis Solis MD Albumin/Glob Ratio 0.9 Low 1.0-2.5 [facility] Comment on above: Performed By: #### H H, BMPX #### [facility] [employer] [address] [place] [address] [employer]: Luis Solis MD Alkaline Phos 104 U/L Normal 35-104 [facility] Comment on above: Performed By: #### H H, BMPX #### [facility] [employer] [address] [place] [address] [employer]: Luis Solis MD ALT [Catalytic activity/Vol] 7 U/L Normal 5-33 [facility] Comment on above: Performed By: #### H H, BMPX #### [address] [address] [employer]: Luis Solis MD Anion gap [Moles/Vol] 13 mmol/L Normal 9-17 [facility] Comment on above: Performed By: #### H H, BMPX #### [address] [address] [employer]: Luis Solis MD AST [Catalytic activity/Vol] 15 U/L Normal <32 [facility] Comment on above: Performed By: #### H H, BMPX #### [address] [address] Mathematician Research: Luis Solis MD Bilirubin [Mass/Vol] 0.5 mg/dL Normal 0.3-1.2 [facility] Comment on above: Performed By: #### H H, BMPX #### [facility] [address] [place] [address] Mathematician Research: Luis Solis MD Calcium [Mass/Vol] 8.5 mg/dL Low 8.6-10.4 [facility] Comment on above: Performed By: #### H H, BMPX #### [facility] [address] [place] [address] Mathematician Research: Luis Solis MD Chloride [Moles/Vol] 102 mmol/L Normal 98-107 [facility] Comment on above: Performed By: #### H H, BMPX #### [facility] [employer] [address] [place] [address] Mathematician Research: Luis Solis MD CO2 [Moles/Vol] 24 mmol/L Normal 20-31 [facility] Comment on above: Performed By: #### H H, BMPX #### [facility] [employer] [address] [place] [address] Mathematician Research: Luis Solis MD Creatinine [Mass/Vol] 1.62 mg/dL High 0.50-0.90 [facility] Comment on above: Performed By: #### H H, BMPX #### [facility] [employer] [address] [place] [address] Mathematician Research: Luis Solis MD GFR/1.73 sq M.predicted among non-blacks MDRD (S/P/Bld) [Vol rate/Area] 33 mL/min/{1.73_m2} Low >60 [facility] Comment on above: Result Comment: [...] H H, BMPX #### [facility] [address] [place] [address] Mathematician Research: Luis Solis MD Glucose [Mass/Vol] 272 mg/dL High 70-99 [facility] Comment on above: Performed By: #### H H, BMPX #### [facility] [employer] [address] [place] [address] Mathematician Research: Luis Solis MD Potassium [Moles/Vol] 4.4 mmol/L Normal 3.7-5.3 [facility] Comment on above: Performed By: #### H H, BMPX #### [facility] [employer] [address] [place] [address] Mathematician Research: Luis Solis MD Protein [Mass/Vol] 7.3 g/dL Normal 6.4-8.3 [facility] Comment on above: Performed By: #### H H, BMPX #### [address] [address] Mathematician Research: Luis Solis MD Sodium [Moles/Vol] 139 mmol/L Normal 135-144 [facility] Comment on above: Performed By: #### H H, BMPX #### [facility] [address] [place] [address] Mathematician Research: Luis Solis MD Urea nitrogen [Mass/Vol] 22 mg/dL Normal 8-23 [facility] Comment on above: Performed By: #### H H, BMPX #### [facility] [address] [place] [address] Mathematician Research: Luis Solis MD Lactate, Sepsison 09-28-2022 Lactic Acid,Sep Wbld 0.6 mmol/L Normal 0.5-1.9 [facility] Comment on above: Performed By: #### R EJEC, BMPX #### [facility] [employer] [address] [place] [address] Mathematician Research: Luis Solis MD Lactic Acid,Sep Wbld 1.5 mmol/L Normal 0.5-1.9 [facility] Comment on above: Performed By: #### H H, BMPX #### [facility] [employer] [address] [place] [address] Mathematician Research: Luis Solis MD Legionella Ag, Uron 09-28-20 Legionella Ag, Ur Negative Normal NEG [facility] Comment on above: Result Comment: L. p neumophila serogroup 1 antigen not detected. A negative result does not exclude infection with Leginella pnemophila serogroup 1 nor does it rule out other microbial-caused respiratory infections of disease caused by other serogroups of Legionella pneumophila. Performed By: #### H H, BMPX #### [facility] [employer] [address] [place] [address] Mathematician Research: Luis Solis MD PTon 09-28-2022 INR Coag (PPP) [Relative time] 1.1 {INR} Normal [facility] Comment on above: Result Comment: Therapeutic Range: Moderate Anticoagulant Intensity: INR = 2.0-3.0 High Anticoagulant Intensity: INR = 2.5-3.5 Performed By: #### H H, BMPX #### [facility] [employer] [address] [place] [address] Mathematician Research: Luis Solis MD PT Coag (PPP) [Time] 11.8 s Normal 9.1-12.3 [facility] Comment on above: Performed By: #### H H, BMPX #### [facility] [employer] [address] [place] [address] Mathematician Research: Luis Solis MD [id number] 09-28-2022 SARS-CoV-2 (COVID-19) RNA SIRI+probe Ql (Unsp spec) Not detected Normal NOTDET [facility] Comment on above: Result Comment: [...] management decisions. Fact sheet for Healthcare Providers: https://www.fda.gov/media/915523/download Fact sheet for Patients: https://www.fda.gov/media/917558/download Methodology: Isothermal Nucleic Acid Amplification Performed By: #### Jeff DALE, BMPX #### [employer] [address] [place] [address] [phone] Mathematician Research: Luis Solis MD Sedimentation Rateon 022 Sedimentation Rate 61 mm/Hr High 0-30 [facility] Comment on above: Performed By: #### Jeff DALE, BMPX #### [employer] [address] [place] [address] [phone] Mathematician Research: Luis Solis MD Strep pneum Ag,CSF/Uron 09-15 Strep pneum Ag Negative Normal [facility] Comment on above: Result Comment: Stre p pneumoniae antigen not detected Performed By: #### Jeff DALE, BMPX #### [employer] [address] [place] [address] Mathematician Research: Luis Solis MD Strep pneu Ag Source .URINE Normal [facility] Comment on above: Performed By: #### Jeff DALE, BMPX #### [employer] [address] [place] [address] Mathematician Research: Luis Solis MD Troponinon 09-28-2022 Troponin, High Sens 222 ng/L Critically high 014 [facility] Comment on above: Result Comment: High Sensitivity Troponin values cannot be compared with other Troponin methodologies. Patients with high levels of Biotin oral intake (i.e >5mg/day) may have falsely decreased Troponin levels. Samples collected within 8 hours of biotin intake may require additional information for diagnosis. Performed By: #### R EJEC, BMPX #### [employer] [address] [place] [address] Mathematician Research: Luis Solis MD Troponin, High Sens 219 ng/L Critically high 014 [facility] Comment on above: Result Comment: High Sensitivity Troponin values cannot be compared with other Troponin methodologies. Patients with high levels of Biotin oral intake (i.e >5mg/day) may have falsely decreased Troponin levels. Samples collected within 8 hours of biotin intake may require additional information for diagnosis. Performed By: #### H H, BMPX #### [employer] [address] [place] [address] Mathematician Research: Luis Solis MD Type + Screenon 09-28-2022 Type + Screen Sample Expiration 10/01/2022,2359 Arm Band Number [id number] ABO/Rh(D) O NEGATIVE Antibody Screen NEGATIVE Normal [facility] Comment on above: Performed By: #### H H, BMPX #### [employer] [address] [place] [address] Mathematician Research: Luis Solis MD Urinalysis w/ Microon 2021 Bacteria MANY Abnormal NONE [facility] Comment on above: Performed By: #### H H, BMPX #### [employer] [address] [place] [address] Mathematician Research: Luis Solis MD Bilirubin, SemiQt,Ur Negative Normal NEG [facility] Comment on above: Performed By: #### H H, BMPX #### [facility] [employer] [address] [place] [address] Mathematician Research: Luis Solis MD Blood, Urine Negative Normal NEG [facility] Comment on above: Performed By: #### H H, BMPX #### [facility] [employer] [address] [place] [address] Mathematician Research: Luis Solis MD Casts 0 TO 2 HYALINE Normal 0-8 [facility] Comment on above: Result Comment: Refe rence range defined for non-centrifuged specimen. Performed By: #### H H, BMPX #### [address] [address] [employer]hematician Research: Luis Solis MD Clarity (U) Cloudy Abnormal CLEAR [facility] Comment on above: Performed By: #### H H, BMPX #### [address] [address] [employer]hematician Research: Luis Solis MD Color (U) Yellow Normal YEL [facility] Comment on above: Performed By: #### H H, BMPX #### [address] [address] [employer]hematician Research: Luis Solis MD Epithelial cells LM Ql (Urine sed) 5 TO 10 Normal 0-5 [facility] Comment on above: Performed By: #### H H, BMPX #### [facility] [employer] [address] [place] [address] Mathematician Research: Luis Solis MD Glucose Ql (U) 2+ Abnormal NEG [facility] Comment on above: Performed By: #### H H, BMPX #### [address] [address] Mathematician Research: Luis Solis MD Ketones Ql (U) TRACE Abnormal NEG [facility] Comment on above: Performed By: #### H H, BMPX #### [facility] [employer] [address] [place] [address] Mathematician Research: Luis Solis MD Leukocyte esterase Test strip Ql (U) TRACE Abnormal NEG [facility] Comment on above: Performed By: #### H H, BMPX #### [facility] [employer] [address] [place] [address] Mathematician Research: Luis Solis MD Nitrite,Ur Negative Normal NEG [facility] Comment on above: Performed By: #### H H, BMPX #### [facility] [employer] [address] [place] [address] Mathematician Research: Luis Solis MD PH,Ur 5.5 Normal 5.0-8.0 [facility] Comment on above: Performed By: #### H H, BMPX #### [address] [address] Mathematician Research: Luis Solis MD Protein Ql (U) TRACE Abnormal NEG [facility] Comment on above: Performed By: #### H H, BMPX #### [address] [address] Mathematician Research: Luis Solis MD Spec. [place],Ur 1.018 Normal 1.005-1.03 0 [facility] Comment on above: Performed By: #### H H, BMPX #### [facility] [employer] [address] [place] [address] Mathematician Research: Luis Solis MD Urine RBC's 0 TO 2 Normal 0-4 [facility] Comment on above: Result Comment: Refe rence range defined for non-centrifuged specimen. Performed By: #### H H, BMPX #### [facility] [address] [place] [address] Mathematician Research: Luis Solis MD Urine WBC's 10 TO 20 Normal 0-5 [facility] Comment on above: Performed By: #### H H, BMPX #### [facility] [employer] [address] [place] [address] Mathematician Research: Luis Solis MD Urobilinogen,Ur Normal Normal NORM [facility] Comment on above: Performed By: #### H H, BMPX #### [facility] [employer] [address] [place] [address] Mathematician Research: Luis Solis MD XR CHEST PORTABLEon 09-28-20 [...] Garth Herr MD 09/28/22 Final result Normal [facility] CT BRAIN WO CONTRASTon 03-31 CT BRAIN WO CONTRAST [facility] Department of Radiology [address] [place] [id number] Patient Name: CUCA DEE : 1945 Sex: F Age: Race: White Pt. 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 IMPRESSION: No change. Electronically signed: Berry Wyman. Transcribed by: [email or web address], User Resident: Electronically Signed by: BERRY WYMAN @ 03/31/2022 03:46 PM Normal [facility] Comment on above: Order Comment: hydro cephalus s/p vp of technology shunt WELD ENGINEER SHUNT SERIESon 03-31-2022 WELD ENGINEER SHUNT SERIES [facility] Department of Radiology [address] [place] [phone] Patient Name: CUCA DEE : 1945 Sex: F Age: Race: White Pt. 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 COMPARISON: [...] Shunt catheter as described. Electronically signed: Lam Ray. Transcribed by: [email or web address], User Resident: Electronically Signed by: LAM RAY @ 04/03/2022 08:50 AM Normal [facility] Comment on above: Order Comment: , .br E.brEr/o kinking or discontinuity of shunt tubing and do image perpendicularl to valve to check OP , .brr/o kinking or discontinuity of shunt tubing and do image perpendicularl to valve to check OP , , , Ordering Provider - Danielle RAWLS CORPORATE STRATEGIST , Lipid Profileon 03-26-2021 Cholesterol [Mass/Vol] 117 mg/dL Normal <200 [facility] Comment on above: Result Comment: Cholesterol Guidelines: <200 Desirable 200-240 Borderline >240 Undesirable Performed By: #### L IPR #### [facility] [employer] [address] [place] [address] Mathematician Research: Luis Solis MD Cholesterol in HDL [Mass/Vol] 39 mg/dL Low >40 [facility] Comment on above: Result Comment: HDL Guidelines: <40 Undesirable 40-59 Borderline >59 Desirable Performed By: #### L IPR #### [facility] [address] [place] [address] Mathematician Research: Luis Solis MD Cholesterol in LDL [Mass/Vol] 62 mg/dL Normal 0-130 [facility] Comment on above: Result Comment: LDL Guidelines: <100 Desirable 100-129 Near to/above Desirable 130-159 Borderline >159 Undesirable Direct (measured) LDL and calculated LDL are not interchangeable tests. Performed By: #### L IPR #### [facility] [employer] [address] [place] [address] Mathematician Research: Luis Solis MD Cholesterol.total /Cholesterol in HDL [Mass ratio] 3.0 {ratio} Normal <5 [facility] Comment on above: Performed By: #### L IPR #### [employer] [address] [place] [address] Mathematician Research: Luis Solis MD Triglyceride [Mass/Vol] 79 mg/dL Normal <150 [facility] Comment on above: Result Comment: Triglyceride Guidelines: <150 Desirable 150-199 Borderline 200-499 High >499 Very high Based on AHA Guidelines for fasting triglyceride, August 2012. Performed By: #### L IPR #### [employer] [address] [place] [address] Mathematician Research: Luis Solis MD Cholesterol,VLDL NOT REPORTED Normal 1-30 [facility] Comment on above: Performed By: #### L IPR #### [facility] [address] [place] [address] Mathematician Research: Luis Solis MD Uric Acidon 03-24-2021 Urate [Mass/Vol] 6.8 mg/dL High 2.4-5.7 [facility] Comment on above: Performed By: #### U RI #### [facility] [address] [place] [address] Mathematician Research: Giovanny Carpenter MD Uric AcidOrdered By: Lakeshia Henriquez on 03-24-2021 Interpretation and review of laboratory results Abnormal [facility] Work Phone: Urate [Mass/Vol] 6.8 mg/dL High 2.4 - 5.7 mg/dL [facility] Work Phone: CBC AUTO DIFFon 03-20-2021 BASO # 0.0 103/ul Normal 0.0-0.1 [facility] Comment on above: Performed By: #### C BC #### [facility] [address] [place], [place] [address] Ghulam Amy Basophils/100 WBC (Bld) 0.4 % Normal 0.2-2.0 [facility] Comment on above: Performed By: #### C BC #### [facility] [address] [place], [place] [address] Ghulam Amy EO # 0.4 103/ul Normal 0.0-0.7 [facility] Comment on above: Performed By: #### C BC #### [facility] [address] [place], [place] [address] Ghulam Amy Eosinophils/100 WBC (Bld) 4.3 % Normal 0.9-7.0 [facility] Comment on above: Performed By: #### C BC #### [facility] [address] [place], [place] [address] Ghulam Amy Erythrocyte distribution width (RBC) [Ratio] 15.9 % Critically high 11.0-15.0 [facility] Comment on above: Performed By: #### C BC #### [facility] [address] [place] [address] Ghulam Reyes Hematocrit (Bld) [Volume fraction] 28.5 % Critically low 36.0-48.0 [facility] Comment on above: Performed By: #### C BC #### [facility] [address] [place], [place] [phone] Ghulamgabriela Reyes Hemoglobin (Bld) [Mass/Vol] 8.9 g/dL Critically low 12.0-16.0 [facility] Comment on above: Performed By: #### C BC #### [facility] [address] [place] [address] Ghulamgabriela Reyes IG # 0.04 10e3/ul Critically high 0.00-0.03 [facility] [place] [facility] Comment on above: Performed By: #### C BC #### [facility] [address] [place] [address] Ghulamgabriela Reyes IG % 0.4 % Normal 0.0-0.5 [facility] Comment on above: Performed By: #### C BC #### [facility] [address] [place] [address] Ghulam Reyes LYMPH # 2.2 103/ul Normal 1.2-3.8 [facility] Comment on above: Performed By: #### C BC #### [facility] [address] [place] [address] Ghulam Reyes Lymphocytes/100 WBC (Bld) 21.9 % Normal 20.5-60.0 [facility] Comment on above: Performed By: #### C BC #### [facility] [address] [place] [address] Ghulam Reyse MANUAL DIFF REQ NO Normal [facility] Comment on above: Performed By: #### C BC #### [facility] [address] [place], [place] [phone] Ghulam Reyes MCH (RBC) [Entitic mass] 27.1 pg Normal 26.7-34.0 [facility] Comment on above: Performed By: #### C BC #### [facility] [address] [place], [place] [address] Ghulamgabriela Reyes MCHC (RBC) [Mass/Vol] 31.2 g/dL Normal 29.9-35.2 [facility] Comment on above: Performed By: #### C BC #### [facility] [address] [place], [place] [address] Ghulamgabriela Reyes MCV (RBC) [Entitic vol] 86.9 fL Normal 81.0-99.0 [facility] Comment on above: Performed By: #### C BC #### [facility] [address] [place] [phone] Ghulam Amy MONO # 1.0 103/ul Critically high 0.3-0.8 [facility] Comment on above: Performed By: #### C BC #### [facility] [address] [place], [place] [phone] Ghulam Amy Monocytes/100 WBC (Bld) 10.1 % Normal 1.7-12.0 [facility] Comment on above: Performed By: #### C BC #### [facility] [address] [place] [phone] Ghulam Amy NEUT # 6.2 103/ul Normal 1.4-6.5 [facility] Comment on above: Performed By: #### C BC #### [facility] [address] [place], [place] [phone] Ghulam Amy Neutrophils/100 WBC (Bld) 62.9 % Normal 43.0-75.0 [facility] Comment on above: Performed By: #### C BC #### [facility] [address] [place] [phone] Ghulam Amy Platelet mean volume (Bld) [Entitic vol] 10.2 fL Normal 9.5-13.5 [facility] Comment on above: Performed By: #### C BC #### [facility] [address] [place], [place] [phone] Ghulam Amy PLT 289 103/ul Normal 150-450 [facility] Comment on above: Performed By: #### C BC #### [facility] [address] [place] [phone] Ghulamgabriela Reyes RBC 3.28 106/ul Critically low 4.20-5.40 [facility] Comment on above: Performed By: #### C BC #### [facility] [address] [place], [place] [phone] Ghulamgabriela Reyes WBC 9.9 103/ul Normal 4.0-11.0 [facility] Comment on above: Performed By: #### C BC #### [facility] [address] [place], [place] [phone] Ghulamgabriela Sotoen PROF 14(COMP METB)on 021 Albumin [Mass/Vol] 2.8 g/dL Critically low 3.5-5.0 [facility] Comment on above: Performed By: #### C MP #### [facility] [address] [place] [address] Ghulamgabriela Reyes Albumin/Globulin [Mass ratio] 0.6 {ratio} Normal [facility] Comment on above: Performed By: #### C MP #### [facility] [address] [place] [address] Ghulam Amy ALP [Catalytic activity/Vol] 95 U/L Normal 38-126 [facility] Comment on above: Performed By: #### C MP #### [facility] [address] [place] [address] Ghulam Amy ALT [Catalytic activity/Vol] 16 U/L Normal 9-52 [facility] Comment on above: Performed By: #### C MP #### [facility] [address] [place], [place] [phone] Ghulam May Anion gap [Moles/Vol] 11.6 mmol/L Normal [facility] Comment on above: Performed By: #### C MP #### [facility] [address] [place], [place] [phone] Ghulam Amy AST [Catalytic activity/Vol] 13 U/L Critically low 14-36 [facility] Comment on above: Performed By: #### C MP #### [facility] [address] [place] [address] Ghulam Amy Bilirubin [Mass/Vol] 0.4 mg/dL Normal 0.2-1.3 [facility] Comment on above: Performed By: #### C MP #### [facility] [address] [place] [phone] Ghulam Amy Calcium [Mass/Vol] 8.9 mg/dL Normal 8.4-10.2 [facility] Comment on above: Performed By: #### C MP #### [facility] [address] [place] [phone] Ghulam Amy Chloride [Moles/Vol] 103 mmol/L Normal 98-107 [facility] Comment on above: Performed By: #### C MP #### [facility] [address] [place] [address] Ghulam Amy CO2 [Moles/Vol] 27.4 mmol/L Normal 22.0-30.0 [facility] Comment on above: Performed By: #### C MP #### [facility] [address] [place] [address] Ghulam Amy Creatinine [Mass/Vol] 1.86 mg/dL Critically high 0.52-1.04 [facility] Comment on above: Performed By: #### C MP #### [facility] [address] [place] [phone] Ghulam Amy EGFR-AF MICRONESIAN 32 mL/min/1.73m2 Critically low >=60 [facility] Comment on above: Performed By: #### C MP #### [facility] [address] [place] [phone] Ghulam Amy EGFR-NON AF MICRONESIAN 26 mL/min/1.73m2 Critically low >=60 [facility] Comment on above: Performed By: #### C MP #### [facility] [address] [place] [id number] Ghulam Amy Globulin (S) [Mass/Vol] 4.6 g/dL Normal [facility] Comment on above: Performed By: #### C MP #### [facility] [address] [place] [id number] Ghulam Amy Glucose [Mass/Vol] 174 mg/dL Critically high 74-106 [facility] Comment on above: Performed By: #### C MP #### [facility] [address] [place] [address] Ghulam Amy Potassium [Moles/Vol] 4.0 mmol/L Normal 3.4-5.0 [facility] Comment on above: Performed By: #### C MP #### [facility] [address] [place] [address] Ghulam Amy Protein [Mass/Vol] 7.4 g/dL Normal 6.1-8.2 [facility] Comment on above: Performed By: #### C MP #### [facility] [address] [place] [address] Ghulam Amy Sodium [Moles/Vol] 138 mmol/L Normal 137-145 [facility] Comment on above: Performed By: #### C MP #### [facility] [address] [place] [address] Ghulam Amy Urea nitrogen [Mass/Vol] 24.0 mg/dL Critically high 7.0-17.0 [facility] Comment on above: Performed By: #### C MP #### [facility] [address] [place] [address] Ghulam Amy Urea nitrogen/Creatini ne [Mass ratio] 12.9 mg/mg Normal [facility] Comment on above: Performed By: #### C MP #### [facility] [address] [place] [address] Ghulam Amy RESPIRATORY PANEL PLUSon Adenovirus Not detected Normal NOT DETECTED [facility] Comment on above: Performed By: #### R SPLUS #### [facility] [address] [place] [address] Ghulam Amy B. Parapertusis Not detected Normal NOT DETECTED [facility] Comment on above: Performed By: #### R SPLUS #### [facility] [address] [place] [address] Ghulam Amy B. Pertussis Not detected Normal NOT DETECTED [facility] Comment on above: Performed By: #### R SPLUS #### [facility] [address] [place] [address] Ghulam Amy Chlamydia Pneumoniae Not detected Normal NOT DETECTED [facility] Comment on above: Performed By: #### R SPLUS #### [facility] [address] [place] [address] Ghulam Amy Coronavirus 229E Not detected Normal NOT DETECTED [facility] Comment on above: Performed By: #### R SPLUS #### [facility] [address] [place] [address] Ghulam Amy Coronavirus HKU1 Not detected Normal NOT DETECTED [facility] Comment on above: Performed By: #### R SPLUS #### [facility] [address] [place] [address] Ghulam Amy Coronavirus NL63 Not detected Normal NOT DETECTED [facility] Comment on above: Performed By: #### R SPLUS #### [facility] [address] [place] [address] Ghulam Amy Coronavirus OC43 Not detected Normal NOT DETECTED [facility] Comment on above: Performed By: #### R SPLUS #### [facility] [address] [place] [address] Ghulam Amy Influenza A H1 2009 Not detected Normal NOT DETECTED [facility] Comment on above: Performed By: #### R SPLUS #### [facility] [address] [place] [address] Ghulam Amy Influenza B Not detected Normal NOT DETECTED [facility] Comment on above: Performed By: #### R SPLUS #### [facility] [address] [place] [address] Ghulam Amy Metapneumovirus Not detected Normal NOT DETECTED [facility] Comment on above: Performed By: #### R SPLUS #### [facility] [address] [place] [address] Ghulam Amy Mycoplas. Pneumoniae Not detected Normal NOT DETECTED [facility] Comment on above: Performed By: #### R SPLUS #### [facility] [address] [place] [address] Ghulam Amy Parainfluenza 1 Not detected Normal NOT DETECTED [facility] Comment on above: Performed By: #### R SPLUS #### [facility] [address] [place] [address] Ghulam Aym Parainfluenza 2 Not detected Normal NOT DETECTED [facility] Comment on above: Performed By: #### R SPLUS #### [facility] [address] [place] [address] Ghulam Amy Parainfluenza 3 Not detected Normal NOT DETECTED [facility] Comment on above: Performed By: #### R SPLUS #### [facility] [address] [place] [address] Ghulam Amy Parainfluenza 4 Not detected Normal NOT DETECTED [facility] Comment on above: Performed By: #### R SPLUS #### [facility] [address] [place] [address] Ghulam Amy Rhino/Enterovirus Not detected Normal NOT DETECTED [facility] Comment on above: Performed By: #### R SPLUS #### [facility] [address] [place] [address] Ghulam Amy RP2 Header 1 RESPIRATORY PANEL: VIRUSES Normal [facility] Comment on above: Performed By: #### R SPLUS #### [facility] [address] [place] [address] Ghulam Amy RP2 Header 2 RESPIRATORY PANEL: BACTERIA Normal [facility] Comment on above: Performed By: #### R SPLUS #### [facility] [address] [place] [address] Ghulam Amy RP2 Header 4 EUA SEE BELOW Normal [facility] Comment on above: Result Comment: This test is not yet approved or cleared by the [place] FDA. When there are no FDA-approved or cleared tests available, and other criteria are met, FDA can make tests available under an emergency access mechanism called an Emergency Use Authorization (EUA). The EUA for this test is supported by the Pattern Changer And Repairer of Health and Human Service?s (HHS?s) declaration [...] used). Performed By: #### R SPLUS #### [facility] [address] [place] [address] Ghulam Reyes RSV Not detected Normal NOT DETECTED [facility] Comment on above: Performed By: #### R SPLUS #### [facility] [address] [place] [address] Ghulam Reyes SARS-CoV-2 (COVID-19) RNA SIRI+probe Ql (Unsp spec) Not detected Normal NOT DETECTED [facility] Comment on above: Performed By: #### R SPLUS #### [facility] [address] [place] [address] Ghulam Reyes URIC ACID SERUMon 03-20-2021 Urate [Mass/Vol] 7.4 mg/dL Critically high 2.5-6.2 [facility] Comment on above: Performed By: #### U GIRISH #### [facility] [address] [place] [address] Ghulam Reyes CBC AUTO DIFFon 03-19-2021 BASO # 0.0 103/ul Normal 0.0-0.1 [facility] Comment on above: Performed By: #### C BC #### [facility] [address] [place] [address] Ghulam Amy Basophils/100 WBC (Bld) 0.3 % Normal 0.2-2.0 [facility] Comment on above: Performed By: #### C BC #### [facility] [address] [place] [address] Ghulam Reeys EO # 0.1 103/ul Normal 0.0-0.7 [facility] Comment on above: Performed By: #### C BC #### [facility] [address] [place] [address] Ghulam Sotoen Eosinophils/100 WBC (Bld) 0.9 % Normal 0.9-7.0 [facility] Comment on above: Performed By: #### C BC #### [facility] [address] [place] [address] Ghulamgabriela Reyes Erythrocyte distribution width (RBC) [Ratio] 15.5 % Critically high 11.0-15.0 [facility] Comment on above: Performed By: #### C BC #### [facility] [address] [place] [address] Ghulam Reyes Hematocrit (Bld) [Volume fraction] 28.1 % Critically low 36.0-48.0 [facility] Comment on above: Performed By: #### C BC #### [facility] [address] [place] [address] Ghulam Reyes Hemoglobin (Bld) [Mass/Vol] 8.9 g/dL Critically low 12.0-16.0 [facility] Comment on above: Performed By: #### C BC #### [facility] [address] [place] [address] Ghulam Reyes IG # 0.05 10e3/ul Critically high 0.00-0.03 [facility] [place] [facility] Comment on above: Performed By: #### C BC #### [facility] [address] [place] [address] Ghulam Reyes IG % 0.5 % Normal 0.0-0.5 [facility] Comment on above: Performed By: #### C BC #### [facility] [address] [place] [address] Ghulam Reyes LYMPH # 1.9 103/ul Normal 1.2-3.8 [facility] Comment on above: Performed By: #### C BC #### [facility] [address] [place] [address] Ghulam Reyes Lymphocytes/100 WBC (Bld) 17.2 % Critically low 20.5-60.0 [facility] Comment on above: Performed By: #### C BC #### [facility] [address] [place] [address] Ghulam Reyes MANUAL DIFF REQ NO Normal [facility] Comment on above: Performed By: #### C BC #### [facility] [address] [place] [address] Ghulam Reyes MCH (RBC) [Entitic mass] 27.1 pg Normal 26.7-34.0 [facility] Comment on above: Performed By: #### C BC #### [facility] [address] [place] [id number] Ghulam Reyes MCHC (RBC) [Mass/Vol] 31.7 g/dL Normal 29.9-35.2 [facility] Comment on above: Performed By: #### C BC #### [facility] [address] [place] [id number] Ghulam Reyes MCV (RBC) [Entitic vol] 85.4 fL Normal 81.0-99.0 [facility] Comment on above: Performed By: #### C BC #### [facility] [address] [place] [id number] Ghulam Reyes MONO # 1.0 103/ul Critically high 0.3-0.8 [facility] Comment on above: Performed By: #### C BC #### [facility] [address] [place] [id number] Ghulam Reyes Monocytes/100 WBC (Bld) 9.5 % Normal 1.7-12.0 [facility] Comment on above: Performed By: #### C BC #### [facility] [address] [place] [id number] Ghulam Reyes NEUT # 7.7 103/ul Critically high 1.4-6.5 [facility] Comment on above: Performed By: #### C BC #### [facility] [address] [place] [id number] Ghulam Reyes Neutrophils/100 WBC (Bld) 71.6 % Normal 43.0-75.0 [facility] Comment on above: Performed By: #### C BC #### [facility] [address] [place] [id number] Ghulam Reyes Platelet mean volume (Bld) [Entitic vol] 10.1 fL Normal 9.5-13.5 [facility] Comment on above: Performed By: #### C BC #### [facility] [address] [place] [id number] Ghulam Amy PLT 285 103/ul Normal 150-450 [facility] Comment on above: Performed By: #### C BC #### [facility] [address] [place], [place] [address] Ghulam Reyes RBC 3.29 106/ul Critically low 4.20-5.40 [facility] Comment on above: Performed By: #### C BC #### [facility] [address] [place] [address] Ghulam Sotoen WBC 10.7 103/ul Normal 4.0-11.0 [facility] Comment on above: Performed By: #### C BC #### [facility] [address] [place], [place] [address] Ghulam Reyes MAGNESIUMon 03-19-2021 Magnesium [Mass/Vol] 1.9 mg/dL Normal 1.6-2.3 [facility] Comment on above: Performed By: #### M G ####[facility] [id number] [place] [id number] Reyes POINT OF CARE GLUCOSEon Glucose [Mass/Vol] 68 mg/dL Critically low 74-106 [facility] Comment on above: Performed By: #### P OCGLUC #### [facility] [address] [place] [address] Ghulam Amy Glucose [Mass/Vol] 91 mg/dL Normal 74-106 [facility] Comment on above: Performed By: #### P OCGLUC #### [facility] [address] [place] [address] Ghulam Amy Glucose [Mass/Vol] 136 mg/dL Critically high 74-106 [facility] Comment on above: Performed By: #### P OCGLUC #### [facility] [address] [place], [place] [address] Ghulam Sotoen PROF 14(COMP METB)on 021 Albumin [Mass/Vol] 2.7 g/dL Critically low 3.5-5.0 [facility] Comment on above: Performed By: #### C MP #### [facility] [address] [place] [address] Ghulam Amy Albumin/Globulin [Mass ratio] 0.6 {ratio} Normal [facility] Comment on above: Performed By: #### C MP #### [facility] [address] [place], [place] [address] Ghulam Amy ALP [Catalytic activity/Vol] 99 U/L Normal 38-126 [facility] Comment on above: Performed By: #### C MP #### [facility] [address] [place] [id number] Ghulam Amy ALT [Catalytic activity/Vol] 14 U/L Normal 9-52 [facility] Comment on above: Performed By: #### C MP #### [facility] [address] [place] [id number] Ghulam Amy Anion gap [Moles/Vol] 10.5 mmol/L Normal [facility] Comment on above: Performed By: #### C MP #### [facility] [address] [place] [address] Ghulam Amy AST [Catalytic activity/Vol] 13 U/L Critically low 14-36 [facility] Comment on above: Performed By: #### C MP #### [facility] [address] [place] [address] Ghulam Amy Bilirubin [Mass/Vol] 0.5 mg/dL Normal 0.2-1.3 [facility] Comment on above: Performed By: #### C MP #### [facility] [address] [place] [address] Ghulam Amy Calcium [Mass/Vol] 9.1 mg/dL Normal 8.4-10.2 [facility] Comment on above: Performed By: #### C MP #### [facility] [address] [place] [address] Ghulam Amy Chloride [Moles/Vol] 104 mmol/L Normal 98-107 [facility] Comment on above: Performed By: #### C MP #### [facility] [address] [place] [id number] Ghulam Amy CO2 [Moles/Vol] 27.2 mmol/L Normal 22.0-30.0 [facility] Comment on above: Performed By: #### C MP #### [facility] [address] [place] [id number] Ghulam Amy Creatinine [Mass/Vol] 1.57 mg/dL Critically high 0.52-1.04 [facility] Comment on above: Performed By: #### C MP #### [facility] [address] [place] [id number] Ghulam Amy EGFR-AF MICRONESIAN 39 mL/min/1.73m2 Critically low >=60 [facility] Comment on above: Performed By: #### C MP #### [facility] [address] [place] [address] Ghulam Amy EGFR-NON AF MICRONESIAN 32 mL/min/1.73m2 Critically low >=60 [facility] Comment on above: Performed By: #### C MP #### [facility] [address] [place], [place] [id number] Ghulam Amy Globulin (S) [Mass/Vol] 4.6 g/dL Normal [facility] Comment on above: Performed By: #### C MP #### [facility] [address] [place] [address] Ghulam Amy Glucose [Mass/Vol] 209 mg/dL Critically high 74-106 [facility] Comment on above: Performed By: #### C MP #### [facility] [address] [place], [place] [id number] Ghulam Amy Potassium [Moles/Vol] 3.7 mmol/L Normal 3.4-5.0 [facility] Comment on above: Performed By: #### C MP #### [facility] [address] [place] [address] Ghulam Amy Protein [Mass/Vol] 7.3 g/dL Normal 6.1-8.2 [facility] Comment on above: Performed By: #### C MP #### [facility] [address] [place] [address] Ghulam Amy Sodium [Moles/Vol] 138 mmol/L Normal 137-145 [facility] Comment on above: Performed By: #### C MP #### [facility] [address] [place] [address] Ghulam Amy Urea nitrogen [Mass/Vol] 28.0 mg/dL Critically high 7.0-17.0 [facility] Comment on above: Performed By: #### C MP #### [facility] [address] [place], [place] [address] Ghulam Reyes Urea nitrogen/Creatini ne [Mass ratio] 17.8 mg/mg Normal [facility] Comment on above: Performed By: #### C MP #### [facility] [address] [place], [place] [address] Ghulam Reyes Vital Signs Date Time Vital Sign Value Performing Clinician Facility 07-24-2025 23:15-0400 Body mass index (BMI) [Ratio] 30.82 kg/m2 Sacha D square nvlong DO Work Phone: [facility] 07-24-2025 23:15-0400 Body temperature 97.3 [degF] Sacha D square nvlong DO Work Phone: [facility] 07-24-2025 23:15-0400 Body weight 84.01 kg Sacha Furlong DO Work Phone: [facility] 07-24-2025 23:15-0400 Diastolic blood pressure 65 mm[Hg] Sacha Furlong DO Work Phone: [facility] 07-24-2025 23:15-0400 Heart rate 78 /min Sacha Furlong DO Work Phone: [facility] 07-24-2025 23:15-0400 Respiratory rate 18 /min Sacha Furlong DO Work Phone: [facility] 07-24-2025 23:15-0400 SaO2% (BldA) [Mass fraction] 94 % Sacha Furlong DO Work Phone: [facility] 07-24-2025 23:15-0400 Systolic blood pressure 137 mm[Hg] Sacha Furlong DO Work Phone: [facility] 07-20-2025 15:33-0400 Body mass index (BMI) [Ratio] 31.12 kg/m2 Sacha Furlong DO Work Phone: [facility] 07-20-2025 15:33-0400 Body temperature 98.49 [degF] Sacha Furlong DO Work Phone: [facility] 07-20-2025 15:33-0400 Body weight 84.82 kg Sacha Furlong DO Work Phone: [facility] 07-20-2025 15:33-0400 Diastolic blood pressure 67 mm[Hg] Sacha Furlong DO Work Phone: [facility] 07-20-2025 15:33-0400 Heart rate 86 /min Sacha Furlong DO Work Phone: [facility] 07-20-2025 15:33-0400 Respiratory rate 18 /min Sacha Furlong DO Work Phone: [facility] 07-20-2025 15:33-0400 SaO2% (BldA) [Mass fraction] 91 % Sacha Furlong DO Work Phone: [facility] 07-20-2025 15:33-0400 Systolic blood pressure 97 mm[Hg] Sacha Furlong DO Work Phone: [facility] 07-10-2025 11:36-0400 Body mass index (BMI) [Ratio] 27.99 kg/m2 Sacha Furlong DO Work Phone: [facility] 07-10-2025 11:36-0400 Body temperature 97.81 [degF] Sacha Furlong DO Work Phone: [facility] 07-10-2025 11:36-0400 Body weight 76.3 kg Sacha Furlong DO Work Phone: [facility] 07-10-2025 11:36-0400 Diastolic blood pressure 71 mm[Hg] Sacha Furlong DO Work Phone: [facility] 07-10-2025 11:36-0400 Heart rate 70 /min Sacha Furlong DO Work Phone: [facility] 07-10-2025 11:36-0400 Respiratory rate 16 /min Sacha Furlong DO Work Phone: [facility] 07-10-2025 11:36-0400 SaO2% (BldA) [Mass fraction] 96 % Sacha Furlong DO Work Phone: [facility] 07-10-2025 11:36-0400 Systolic blood pressure 106 mm[Hg] Sacha Furlong DO Work Phone: [facility] 07-06-2025 16:24-0400 Body height 165.1 cm Sacha Furlong DO Work Phone: [facility] 07-06-2025 16:24-0400 Body temperature 97.5 [degF] Sacha Furlong DO Work Phone: [facility] 07-06-2025 16:24-0400 Diastolic blood pressure 66 mm[Hg] Sacha Furlong DO Work Phone: [facility] 07-06-2025 16:24-0400 Heart rate 67 /min Sacha Furlong DO Work Phone: [facility] 07-06-2025 16:24-0400 Respiratory rate 18 /min Sacha Furlong DO Work Phone: [facility] 07-06-2025 16:24-0400 SaO2% (BldA) [Mass fraction] 95 % Sacha Furlong DO Work Phone: [facility] 07-06-2025 16:24-0400 Systolic blood pressure 113 mm[Hg] Sacha Furlong DO Work Phone: [facility] 07-05-2025 11:00-0400 Body temperature 97.2 [degF] Felix Hallman MD Work Phone: [facility] 07-05-2025 11:00-0400 Diastolic blood pressure 55 mm[Hg] Felix Hallman MD Work Phone: [facility] 07-05-2025 11:00-0400 Heart rate 77 /min Felix Hallman MD Work Phone: [facility] 07-05-2025 11:00-0400 Respiratory rate 17 /min Felix Hallman MD Work Phone: [facility] 07-05-2025 11:00-0400 SaO2% (BldA) [Mass fraction] 93 % Felix Hallman MD Work Phone: [facility] 07-05-2025 11:00-0400 Systolic blood pressure 108 mm[Hg] Felix Hallman MD Work Phone: [facility] 07-02-2025 18:15-0400 Body height 165.1 cm Felix Hallman MD Work Phone: [facility] 07-02-2025 18:15-0400 Body mass index (BMI) [Ratio] 28.79 kg/m2 Felix Hallman MD Work Phone: [facility] 07-02-2025 18:15-0400 Body weight 78.47 kg Felix Hallman MD Work Phone: [facility] 06-06-2025 13:25-0400 Body height 165.1 cm Joie FRIEND Work Phone: [facility] 06-06-2025 13:25-0400 Body mass index (BMI) [Ratio] 31.45 kg/m2 Joie FRIEND Work Phone: [facility] 06-06-2025 13:25-0400 Body weight 85.73 kg Joie FRIEND Work Phone: [facility] 06-05-2025 13:03-0400 Body height 165.1 cm Vj Coboszer [employer] EQUIPMENT REPAIRER-CORPORATE STRATEGIST [facility] 06-05-2025 13:03-0400 Body mass index (BMI) [Ratio] 30.65 kg/m2 Vj [employer] EQUIPMENT REPAIRER-CORPORATE STRATEGIST Work [facility] 06-05-2025 13:03-0400 Body temperature 97.7 [degF] Vj [employer] L[employer] AND [employer] EQUIPMENT REPAIRER-CORPORATE STRATEGIST [facility] 06-05-2025 13:03-0400 Body weight 83.55 kg Vj [employer] L[employer] EQUIPMENT REPAIRER-CORPORATE STRATEGIST [facility] 06-05-2025 13:03-0400 Diastolic blood pressure 80 mm[Hg] Vj Chrisotzer [employer] EQUIPMENT REPAIRER-CORPORATE STRATEGIST Work Phone: [facility] 06-05-2025 13:03-0400 Heart rate 67 /min Vj [employer] AND [employer] EQUIPMENT REPAIRER-CORPORATE STRATEGIST [facility] 06-05-2025 13:03-0400 Respiratory rate 18 /min Vj Perezotzer L[employer] EQUIPMENT REPAIRER-CORPORATE STRATEGIST Work Phone[facility] 06-05-2025 13:03-0400 SaO2% (BldA) [Mass fraction] 95 % Vj Coboszer [employer] EQUIPMENT REPAIRER-CORPORATE STRATEGIST Work Phone[facility] 06-05-2025 13:03-0400 Systolic blood pressure 120 mm[Hg] Vj Latoyazer [employer] EQUIPMENT REPAIRER-CORPORATE STRATEGIST Work Phone: [facility] 05-15-2025 15:20-0400 Heart rate 98 /min Felix Hallman MD Work [facility] 05-15-2025 15:20-0400 SaO2% (BldA) [Mass fraction] [...] 11:21-0400 SaO2% (BldA) [Mass fraction] 67 % MELY LARIOS [facility] Comment on above: Performed By: #### ABG ####[facility] ([place] [id number] [facility] 04-04-2025 09:01-0400 Body height 165.1 cm Pam Stinson APRN-BARTOLO Work Phone: [facility] 04-04-2025 09:01-0400 Body mass index (BMI) [Ratio] 30.79 kg/m2 Pam Stinson APRN-BARTOLO Work Phone: [facility] 04-04-2025 09:01-0400 Body temperature 97.7 [degF] Pam Stinson APRN-BARTOLO Work Phone: [facility] 04-04-2025 09:01-0400 Body weight 83.92 kg Pam RICHEY Work Phone: [facility] 04-04-2025 09:01-0400 Diastolic blood pressure 68 mm[Hg] Pam Stinson APRN-BARTOLO Work Phone: [facility] 04-04-2025 09:01-0400 Heart rate 88 /min Pam RICHEY Work Phone: [facility] 04-04-2025 09:01-0400 Respiratory rate 20 /min Pam RICHEY Work Phone: [facility] 04-04-2025 09:01-0400 SaO2% (BldA) [Mass fraction] 93 % Pam RICHEY Work Phone: [facility] 04-04-2025 09:01-0400 Systolic blood pressure 108 mm[Hg] Pam Stinson APRN-BARTOLO Work Phone: [facility] 04-03-2025 08:04-0400 Body height 165.1 cm Pfo [address] [place] [address] 04-03-2025 08:04-0400 Body mass index (BMI) [Ratio] 30.89 kg/m2 Pfo 4 [facility] 04-03-2025 08:04-0400 Body temperature 98.01 [degF] Pfo 4 [facility] 04-03-2025 08:04-0400 Body weight 84.19 kg Pfo 4 [facility] 04-03-2025 08:04-0400 Diastolic blood pressure 69 mm[Hg] Pfo 4 [facility] 04-03-2025 08:04-0400 Heart rate 81 /min Pfo 4 [facility] 04-03-2025 08:04-0400 Respiratory rate 16 /min Pfo 4 [facility] 04-03-2025 08:04-0400 SaO2% (BldA) [Mass fraction] 98 % Pfo 4 [facility] 04-03-2025 08:04-0400 Systolic blood pressure 149 mm[Hg] Pfo 4 [facility] 03-30-2025 08:01-0400 Body height 165.1 cm Pfo 1 [facility] 03-30-2025 08:01-0400 Body mass index (BMI) [Ratio] 31.15 kg/m2 Pfo 1 [facility] 03-30-2025 08:01-0400 Body temperature 98.01 [degF] Pfo 1 [facility] 03-30-2025 08:01-0400 Body weight 84.91 kg Pfo 1 [facility] 03-30-2025 08:01-0400 Diastolic blood pressure 46 mm[Hg] Pfo 1 [facility] 03-30-2025 08:01-0400 Heart rate 79 /min Pfo 1 [facility] 03-30-2025 08:01-0400 Respiratory rate 15 /min Pfo 1 [facility] 03-30-2025 08:01-0400 SaO2% (BldA) [Mass fraction] 94 % Pfo 1 [facility] 03-30-2025 08:01-0400 Systolic blood pressure 132 mm[Hg] Pfo 1 [facility] 03-28-2025 08:07-0400 Body height 165.1 cm Pfo 1 [facility] 03-28-2025 08:07-0400 Body mass index (BMI) [Ratio] 31.32 kg/m2 Pfo 1 [facility] 03-28-2025 08:07-0400 Body temperature 97.9 [degF] Pfo 1 [facility] 03-28-2025 08:07-0400 Body weight 85.37 kg Pfo 1 [facility] 03-28-2025 08:07-0400 Diastolic blood pressure 55 mm[Hg] Pfo 1 [facility] 03-28-2025 08:07-0400 Heart rate 99 /min Pfo 1 [facility] 03-28-2025 08:07-0400 Respiratory rate 22 /min Pfo 1 [facility] 03-28-2025 08:07-0400 SaO2% (BldA) [Mass fraction] 93 % Pfo 1 [facility] 03-28-2025 08:07-0400 Systolic blood pressure 95 mm[Hg] Pfo 1 [facility] 03-26-2025 09:08-0400 Body height 165.1 cm Pfo 4 [facility] 03-26-2025 09:08-0400 Body mass index (BMI) [Ratio] 29.95 kg/m2 Pfo 4 [facility] 03-26-2025 09:08-0400 Body temperature 98.6 [degF] Pfo 4 [facility] 03-26-2025 09:08-0400 Body weight 81.65 kg Pfo 4 [facility] 03-26-2025 09:08-0400 Diastolic blood pressure 73 mm[Hg] Pfo 4 [facility] 03-26-2025 09:08-0400 Heart rate 77 /min Pfo 4 [facility] 03-26-2025 09:08-0400 Respiratory rate 18 /min Pfo 4 [facility] 03-26-2025 09:08-0400 SaO2% (BldA) [Mass fraction] 98 % Pfo 4 [facility] 03-26-2025 09:08-0400 Systolic blood pressure 132 mm[Hg] Pfo 4 [facility] 03-22-2025 08:15-0400 Body height 165.1 cm Pfo 4 [facility] 03-22-2025 08:15-0400 Body mass index (BMI) [Ratio] 32.25 kg/m2 Pfo 4 [facility] 03-22-2025 08:15-0400 Body temperature 98.1 [degF] Pfo 4 [facility] 03-22-2025 08:15-0400 Body weight 87.91 kg Pfo 4 [facility] 03-22-2025 08:15-0400 Diastolic blood pressure 57 mm[Hg] Pfo 4 [facility] 03-22-2025 08:15-0400 Heart rate 77 /min Pfo 4 [facility] 03-22-2025 08:15-0400 Respiratory rate 16 /min Pfo 4 [facility] 03-22-2025 08:15-0400 SaO2% (BldA) [Mass fraction] 94 % Pfo 4 [facility] 03-22-2025 08:15-0400 Systolic blood pressure 135 mm[Hg] Pfo 4 [facility] 03-20-2025 08:36-0400 Body height 165.1 cm Pfo 4 [facility] 03-20-2025 08:36-0400 Body mass index (BMI) [Ratio] 31.98 kg/m2 Pfo 4 [facility] 03-20-2025 08:36-0400 Body temperature 97.3 [degF] Pfo 4 [facility] 03-20-2025 08:36-0400 Body weight 87.18 kg Pfo 4 [facility] 03-20-2025 08:36-0400 Diastolic blood pressure 58 mm[Hg] Pfo 4 [facility] 03-20-2025 08:36-0400 Heart rate 85 /min Pfo 4 [facility] 03-20-2025 08:36-0400 Respiratory rate 16 /min Pfo 4 [facility] 03-20-2025 08:36-0400 SaO2% (BldA) [Mass fraction] 99 % Pfo 4 [facility] 03-20-2025 08:36-0400 Systolic blood pressure 129 mm[Hg] Pfo 4 [facility] 03-14-2025 08:50-0400 Body height 165.1 cm Pfo 4 [facility] 03-14-2025 08:50-0400 Body mass index (BMI) [Ratio] 31.92 kg/m2 Pfo 4 [facility] 03-14-2025 08:50-0400 Body temperature 98.1 [degF] Pfo 4 [facility] 03-14-2025 08:50-0400 Body weight 87 kg Pfo 4 [facility] 03-14-2025 08:50-0400 Diastolic blood pressure 60 mm[Hg] Pfo 4 [facility] 03-14-2025 08:50-0400 Heart rate 82 /min Pfo 4 [facility] 03-14-2025 08:50-0400 Respiratory rate 22 /min Pfo 4 [facility] 03-14-2025 08:50-0400 SaO2% (BldA) [Mass fraction] 97 % Pfo 4 [facility] 03-14-2025 08:50-0400 Systolic blood pressure 159 mm[Hg] Pfo 4 [facility] 03-12-2025 08:07-0400 Body temperature 98.49 [degF] Pfo 4 [facility] 03-12-2025 08:07-0400 Diastolic blood pressure 55 mm[Hg] Pfo 4 [facility] 03-12-2025 08:07-0400 Heart rate 92 /min Pfo 4 [facility] 03-12-2025 08:07-0400 Respiratory rate 22 /min Pfo 4 [facility] 03-12-2025 08:07-0400 SaO2% (BldA) [Mass [...] 98.1 [degF] Casimiro Muñoz MD Work Phone: [facility] 01-25-2025 14:15-0400 Body weight 86.64 kg Casimiro Muñoz MD Work Phone: [facility] 01-25-2025 14:15-0400 Diastolic blood pressure 60 mm[Hg] Casimiro Muñoz MD Work Phone: [facility] 01-25-2025 14:15-0400 Heart rate 86 /min Casimiro Muñoz MD Work Phone: [facility] 01-25-2025 14:15-0400 Respiratory rate 18 /min Casimiro Muñoz MD Work Phone: [facility] 01-25-2025 14:15-0400 SaO2% (BldA) [Mass fraction] 97 % Casimiro Muñoz MD Work Phone: [facility] 01-25-2025 14:15-0400 Systolic blood pressure 112 mm[Hg] Casimiro Muñoz MD Work Phone: [facility] 01-22-2025 13:53-0400 Body height 165.1 cm Pam RICHEY Work Phone: [facility] 01-22-2025 13:53-0400 Body mass index (BMI) [Ratio] 31.88 kg/m2 Pam Stinson APRN-CORPORATE STRATEGIST Work Phone: [facility] 01-22-2025 13:53-0400 Body temperature 98.2 [degF] Pam Stinson APRN-CORPORATE STRATEGIST Work Phone: [facility] 01-22-2025 13:53-0400 Body weight 86.91 kg Pam Stinson APRN-BARTLOO Work Phone: [facility] 01-22-2025 13:53-0400 Diastolic blood pressure 70 mm[Hg] Pam Stinson APRN-CORPORATE STRATEGIST Work Phone: [facility] 01-22-2025 13:53-0400 Heart rate 91 /min Pam Stinson APRN-CORPORATE STRATEGIST Work Phone: [facility] 01-22-2025 13:53-0400 Respiratory rate 18 /min Pam Stinson [employer] REPAIRER-CORPORATE STRATEGIST Work Phone: [facility] 01-22-2025 13:53-0400 SaO2% (BldA) [Mass fraction] 92 % Pam Stinson [employer]IP[employer] REPAIRER-CORPORATE STRATEGIST Work Phone: [facility] 01-22-2025 13:53-0400 Systolic blood pressure 110 mm[Hg] Pam Stinson [employer] E[employer]IPMENT REPAIRER-CORPORATE STRATEGIST Work Phone: [facility] 01-18-2025 13:36-0500 Diastolic blood pressure 57 mm[Hg] Kendall Villar MD [facility] 01-18-2025 13:36-0500 Systolic blood pressure 90 mm[Hg] Kendall Villar MD [facility] 11-28-2024 14:42-0500 Body height 165.1 cm Pam Stinson APRN-CORPORATE STRATEGIST Work Phone: [facility] 11-28-2024 14:42-0500 Body mass index (BMI) [Ratio] 32.88 kg/m2 Pam Stinson APRN-CORPORATE STRATEGIST Work Phone: [facility] 11-28-2024 14:42-0500 Body temperature 98.4 [degF] Pam Stinson APRN-CORPORATE STRATEGIST Work Phone: [facility] 11-28-2024 14:42-0500 Body weight 89.63 kg Pam Stinson [employer] EQUIPMENT REPAIRER-CORPORATE STRATEGIST Work Phone: [facility] 11-28-2024 14:42-0500 Diastolic blood pressure 58 mm[Hg] Pam Stinson [employer] EQUIPMENT REPAIRER-CORPORATE STRATEGIST Work Phone: [facility] 11-28-2024 14:42-0500 Heart rate 79 /min Pam Stinson APRN-CORPORATE STRATEGIST Work Phone: [facility] 11-28-2024 14:42-0500 Respiratory rate 20 /min Pam Stinson [employer] E[employer]IPMENT REPAIRER-CORPORATE STRATEGIST Work Phone: [facility] 11-28-2024 14:42-0500 SaO2% (BldA) [Mass fraction] 96 % Pam Stinson APRN-CORPORATE STRATEGIST Work Phone: [facility] 11-28-2024 14:42-0500 Systolic blood pressure 140 mm[Hg] Pam Stinson [employer] E[employer]IPMENT REPAIRER-CORPORATE STRATEGIST Work Phone: [facility] 11-24-2024 13:54-0500 Body height 165.1 cm Radha Moran MD Work Phone: [facility] 11-24-2024 13:54-0500 Body mass index (BMI) [Ratio] 32.45 kg/m2 Radha Moran MD Work Phone: [facility] [employer] 11-24-2024 13:54-0500 Body weight 88.45 kg Radha Moran MD Work Phone: [facility] [employer] 11-24-2024 13:54-0500 Diastolic blood pressure 70 mm[Hg] Radha Moran MD Work Phone: [facility] [employer] 11-24-2024 13:54-0500 Heart rate 51 /min Radha Moran MD Work Phone: [facility] [employer] 11-24-2024 13:54-0500 SaO2% (BldA) [Mass fraction] 95 % Radha Moran MD Work Phone: [facility] [employer] 11-24-2024 13:54-0500 Systolic blood pressure 130 mm[Hg] Radha Moran MD Work Phone: [facility] 08-28-2024 08:15-0400 Body height 165.1 cm Pam Stinson [employer] EQUIPMENT REPAIRER-CORPORATE STRATEGIST Work Phone: [facility] 08-28-2024 08:15-0400 Body mass index (BMI) [Ratio] 34.35 kg/m2 Pam Stinson APRN-CORPORATE STRATEGIST Work Phone: [facility] 08-28-2024 08:15-0400 Body temperature 97.5 [degF] Pam Stinson APRN-CORPORATE STRATEGIST Work Phone: [facility] 08-28-2024 08:15-0400 Body weight 93.62 kg Pam Stinson APRN-CORPORATE STRATEGIST Work Phone: [facility] 08-28-2024 08:15-0400 Diastolic blood pressure 60 mm[Hg] Pam Stinson APRN-CORPORATE STRATEGIST Work Phone: [facility] 08-28-2024 08:15-0400 Heart rate 74 /min Pam Stinson APRN-BARTOLO Work Phone: [facility] 08-28-2024 08:15-0400 Respiratory rate 18 /min Pam Stinson APRN-CORPORATE STRATEGIST Work Phone: [facility] 08-28-2024 08:15-0400 SaO2% (BldA) [Mass fraction] 90 % Pam Stinson APRN-CORPORATE STRATEGIST Work Phone: [facility] 08-28-2024 08:15-0400 Systolic blood pressure 120 mm[Hg] Pam Stinson APRN-CORPORATE STRATEGIST Work Phone: [facility] 06-21-2024 14:48-0400 Body height 165.1 cm Pam Stinson APRN-CORPORATE STRATEGIST Work Phone: [facility] 06-21-2024 14:48-0400 Body mass index (BMI) [Ratio] 33.51 kg/m2 Pam Stinson APRN-CORPORATE STRATEGIST Work Phone: [facility] 06-21-2024 14:48-0400 Body temperature 97.7 [degF] Pam Stinson APRN-CORPORATE STRATEGIST Work Phone: [facility] 06-21-2024 14:48-0400 Body weight 91.35 kg Pam Stinson APRN-CORPORATE STRATEGIST Work Phone: [facility] 06-21-2024 14:48-0400 Diastolic blood pressure 70 mm[Hg] Pam Stinson [employer] EQUIPMENT REPAIRER-CORPORATE STRATEGIST Work Phone: [facility] 06-21-2024 14:48-0400 Heart rate 66 /min Pam Stinson [employer] EQUIPMENT REPAIRER-CORPORATE STRATEGIST Work Phone: [facility] 06-21-2024 14:48-0400 SaO2% (BldA) [Mass fraction] 97 % Pam Stinson APRN-CORPORATE STRATEGIST Work Phone: [facility] 06-21-2024 14:48-0400 Systolic blood pressure 110 mm[Hg] Pam Stinson [employer] EQUIPMENT REPAIRER-CORPORATE STRATEGIST Work Phone: [facility] 05-03-2024 14:32-0400 Body height 165.1 cm Pam Stinson APRN-CORPORATE STRATEGIST Work Phone: [facility] 05-03-2024 14:32-0400 Body mass index (BMI) [Ratio] 34.53 kg/m2 Pam Stinson APRN-CORPORATE STRATEGIST Work Phone: [facility] 05-03-2024 14:32-0400 Body temperature 99 [degF] Pam Stinson APRN-CORPORATE STRATEGIST Work Phone: [facility] 05-03-2024 14:32-0400 Body weight 94.12 kg Pam Stinson [employer] EQUIPMENT REPAIRER-CORPORATE STRATEGIST Work Phone: [facility] 05-03-2024 14:32-0400 Diastolic blood pressure 70 mm[Hg] Pam Stinson [employer] EQUIPMENT REPAIRER-CORPORATE STRATEGIST Work Phone: [facility] 05-03-2024 14:32-0400 Heart rate 71 /min Pam Stinson [employer] EQUIPMENT REPAIRER-CORPORATE STRATEGIST Work Phone: [facility] 05-03-2024 14:32-0400 Respiratory rate 18 /min Pam Stinson APRN-CORPORATE STRATEGIST Work Phone: [facility] 05-03-2024 14:32-0400 SaO2% (BldA) [Mass fraction] 94 % Pam Stinson APRN-CORPORATE STRATEGIST Work Phone: [facility] 05-03-2024 14:32-0400 Systolic blood pressure 130 mm[Hg] Pam Stinson APRN-CORPORATE STRATEGIST Work Phone: [facility] 03-09-2024 15:13-0400 Body height 165.1 cm Casimiro Muñoz MD Work Phone: [facility] 03-09-2024 15:13-0400 Body mass index (BMI) [Ratio] 33.08 kg/m2 Casimiro Muñoz MD Work Phone: [facility] 03-09-2024 15:13-0400 Body temperature 97.59 [degF] Casimiro Muñoz MD Work Phone: [facility] 03-09-2024 15:13-0400 Body weight 90.17 kg Casimiro Muñoz MD Work Phone: [facility] 03-09-2024 15:13-0400 Diastolic blood pressure 60 mm[Hg] Casimiro Muñoz MD Work Phone: [facility] 03-09-2024 15:13-0400 Heart rate 104 /min Casimiro Muñoz MD Work Phone: [facility] 03-09-2024 15:13-0400 Respiratory rate 24 /min Casimiro Muñoz MD Work Phone: [facility] 03-09-2024 15:13-0400 SaO2% (BldA) [Mass fraction] 97 % Casimiro Muñoz MD Work Phone: [facility] 03-09-2024 15:13-0400 Systolic blood pressure 130 mm[Hg] Casimiro Muñoz MD Work Phone: [facility] 02-09-2024 13:00-0400 Body height 165.1 cm Pam Stinson APRN-BARTOLO Work Phone: [facility] 02-09-2024 13:00-0400 Body mass index (BMI) [Ratio] 33.35 kg/m2 Pam Stinson APRN-CORPORATE STRATEGIST Work Phone: [facility] 02-09-2024 13:00-0400 Body temperature 98.2 [degF] Pam Stinson APRN-BARTOLO Work Phone: [facility] 02-09-2024 13:00-0400 Body weight 90.9 kg Pam Stinson APRN-CORPORATE STRATEGIST Work Phone: [facility] 02-09-2024 13:00-0400 Diastolic blood pressure 72 mm[Hg] Pam Stinson APRN-CORPORATE STRATEGIST Work Phone: [facility] 02-09-2024 13:00-0400 Heart rate 79 /min Pam Stinson APRN-CORPORATE STRATEGIST Work Phone: [facility] 02-09-2024 13:00-0400 Respiratory rate 20 /min Pam Stinson APRN-CORPORATE STRATEGIST Work Phone: [facility] 02-09-2024 13:00-0400 SaO2% (BldA) [Mass fraction] 97 % Pam Stinson APRN-CORPORATE STRATEGIST Work Phone: [facility] 02-09-2024 13:00-0400 Systolic blood pressure 134 mm[Hg] Pam Stinson [employer] EQUIPMENT REPAIRER-CORPORATE STRATEGIST Work Phone: [facility] 12-15-2023 14:51-0500 Body height 165.1 cm Pam Stinson APRN-CORPORATE STRATEGIST Work Phone: [facility] 12-15-2023 14:51-0500 Body mass index (BMI) [Ratio] 31.02 kg/m2 Pam Stinson APRN-BARTOLO Work Phone: [facility] 12-15-2023 14:51-0500 Body temperature 98.29 [degF] Pam Stinson APRN-BARTOLO Work Phone: [facility] 12-15-2023 14:51-0500 Body weight 84.54 kg Pam Stinson APRN-BARTOLO Work Phone: [facility] 12-15-2023 14:51-0500 Diastolic blood pressure 60 mm[Hg] Pam Stinson APRN-BARTOLO Work Phone: [facility] [employer] 12-15-2023 14:51-0500 Heart rate 89 /min Pam Stinson APRN-BARTOLO Work Phone: [facility] 12-15-2023 14:51-0500 SaO2% (BldA) [Mass fraction] 94 % Pam Stinson APRN-BARTOLO Work Phone: [facility] 12-15-2023 14:51-0500 Systolic blood pressure 100 mm[Hg] Pam Stinson APRN-BARTOLO Work Phone: [facility] 11-25-2023 13:56-0500 Body height 165.1 cm Casimiro Muñoz MD Work Phone: [facility] 11-25-2023 13:56-0500 Body mass index (BMI) [Ratio] 31.45 kg/m2 Casimiro Muñoz MD [facility] 11-25-2023 13:56-0500 Body temperature 99 [degF] Casimiro Muñoz MD Work [facility]: [facility] 11-25-2023 13:56-0500 Body weight 85.73 kg Casimiro Muñoz MD Work Phone: [facility] 11-25-2023 13:56-0500 Diastolic blood pressure 57 mm[Hg] Casimiro [facility]ñoz MD [facility] 11-25-2023 13:56-0500 Heart rate 65 /min Casimiro Muñoz MD Work [facility]: [facility] 11-25-2023 13:56-0500 Respiratory rate 16 /min Casimiro Muñoz MD Work [facility]: [facility] 11-25-2023 13:56-0500 SaO2% (BldA) [Mass fraction] 91 % Casimiro Muñoz MD Work [facility]: [facility] 11-25-2023 13:56-0500 Systolic blood pressure 141 mm[Hg] Casimiro Muñoz MD Work [facility]: [facility] 01-13-2023 07:13-0500 Body temperature 98.01 [degF] Georges Daniels MD Work Phone: [employer] 01-13-2023 07:13-0500 Diastolic blood pressure 54 mm[Hg] Georges Daniels MD Work Phone: [employer] 01-13-2023 07:13-0500 Heart rate 57 /min Georgse Daniels MD Work Phone: [employer] 01-13-2023 07:13-0500 Respiratory rate 18 /min Georges Daniels MD Work Phone: [employer] 01-13-2023 07:13-0500 SaO2% (BldA) [Mass fraction] 98 % Georges Daniels MD Work Phone: [employer] 01-13-2023 07:13-0500 Systolic blood pressure 141 mm[Hg] Georges Daniels MD Work Phone: [employer] 12-11-2022 07:58-0500 Body temperature 98.8 [degF] Georges Daniels MD Work Phone: [employer] 12-11-2022 07:58-0500 Diastolic blood pressure 56 mm[Hg] Georges Daniels MD Work Phone: [facility] [employer] 12-11-2022 07:58-0500 Heart rate 85 /min Georges Daniels MD Work Phone: [employer] [facility] [employer] 12-11-2022 07:58-0500 Respiratory rate 16 /min Amnikole Daniels MD Work Phone: [employer] [facility] [employer] 12-11-2022 07:58-0500 SaO2% (BldA) [Mass fraction] 97 % Amnikole Daniels MD Work Phone: [facility] [employer] 12-11-2022 07:58-0500 Systolic blood pressure 156 mm[Hg] Georges Daniels MD Work Phone: [facility] [employer] 12-07-2022 11:44-0500 Body height 165.1 cm Georges Daniels MD Work Phone: [employer] [facility] [employer] 12-07-2022 11:44-0500 Body mass index (BMI) [Ratio] 34.61 kg/m2 Georges Daniels MD Work Phone: [employer] [facility] [employer] 12-07-2022 11:44-0500 Body weight 94.35 kg Georges Daniels MD Work Phone: [employer] [facility] [employer] 11-24-2022 11:44-0500 Body height 165.1 cm Stv B [employer] [facility] [employer] 11-24-2022 11:44-0500 Body mass index (BMI) [Ratio] 34.95 kg/m2 Stv B [employer] [facility] [employer] 11-24-2022 11:44-0500 Body temperature 98.4 [degF] Stv B [facility] [employer] 11-24-2022 11:44-0500 Body weight 95.25 kg Stv B [employer] [facility] [employer] 11-24-2022 11:44-0500 Diastolic blood pressure 45 mm[Hg] Stv B [employer] [facility] [employer] 11-24-2022 11:44-0500 Heart rate 60 /min Stv B [facility] [employer] 11-24-2022 11:44-0500 Respiratory rate 15 /min Stv B [employer] 11-24-2022 11:44-0500 SaO2% (BldA) [Mass fraction] 93 % Stv B [employer] 11-24-2022 11:44-0500 Systolic blood pressure 131 mm[Hg] Stv B [employer] Encounters Encounter Date Encounter Type Care Provider Facility Start: 07-27-2025 End: 07-27-2025 Telephone encounter Cinda Browning RN Work Phone: [facility] Internal Medicine - Family Medicine Start: 07-25-2025 End: 07-25-2025 Telephone encounter Viridiana Mathews MD Work Phone: [facility]ne[facility] Oncology, A Department of [facility] Comment on above: Appointment Start: 07-24-2025 End: 07-24-2025 ambulatory Sacha Rosales DO [facility] Comment on above: Chronic diastolic co ngestive heart failure ([facility]) (Primary Dx); Pathological fracture of right hip with routine healing, unspecified pathological cause, subsequent encounter; Closed fracture of right hip, sequela; Closed nondisplaced fracture of lesser trochanter of right femur with delayed healing; Other abnormalities of gait and mobility; Hypertensive heart and chronic kidney disease with heart failure and stage 1 through stage 4 chronic kidney disease, or unspecified chronic kidney disease ([facility]) Start: 07-20-2025 End: 07-20-2025 ambulatory Sacha Rosales DO [facility] Comment on above: Pathological fractur e of right hip with routine healing, unspecified pathological cause, subsequent encounter (Primary Dx); Closed nondisplaced fracture of pelvis with routine healing, unspecified part of pelvis, subsequent encounter; Mixed diabetic hyperlipidemia associated with type 2 diabetes mellitus ([facility]); Hypertensive heart and chronic kidney disease with heart failure and stage 1 through stage 4 chronic kidney disease, or unspecified chronic kidney disease ([facility]) Start: 07-19-2025 End: 07-19-2025 [facility] Start: 07-13-2025 End: 07-13-2025 ambulatory VJ Vicki [facility] Start: 07-12-2025 Encounter for preprocedural respiratory examination MARIA GUADALUPE CAGLE [facility] Start: 07-12-2025 End: 07-18-2025 Evaluation and management of inpatient THANIA MARTINEZ [facility] Start: 07-10-2025 End: 07-12-2025 [facility] Start: 07-10-2025 End: 07-10-2025 Bamboo flowsheet Joie FRIEND Work Phone: [facility] Start: 07-10-2025 End: 07-10-2025 Bamboo flowsheet Joie FRIEND Work Phone: [facility] Start: 07-10-2025 End: 07-16-2025 ambulatory JOIE ECHAVARRIA Not Available Comment on above: Hypertensive heart a nd chronic kidney disease with heart failure and stage 1 through stage 4 chronic kidney disease, or unspecified chronic kidney disease ([facility]) (Primary Dx); Chronic obstructive pulmonary disease, unspecified COPD type ([facility]); Lumbar back pain with radiculopathy affecting left lower extremity; Spinal stenosis of lumbar region with neurogenic claudication; Closed fracture of right hip, sequela; Rhinitis, unspecified type Start: 07-10-2025 End: 07-10-2025 Office outpatient visit 25 minutes Joie FRIEND Work Phone: [facility] Comment on above: Acute right hip pain (Primary Dx); Closed avulsion fracture of right hip with routine healing, subsequent encounter; Intertrochanteric fracture of right hip, closed, initial encounter (HCC) Start: 07-06-2025 End: 07-06-2025 ambulatory Sacha G Bobby DO Work Phone: [facility] Internal Medicine - Family Medicine Comment on above: Chronic diastolic co ngestive heart failure ([facility]) (Primary Dx); Hypertensive heart and chronic kidney disease with heart failure and stage 1 through stage 4 chronic kidney disease, or unspecified chronic kidney disease ([facility]); Intractable nausea and vomiting; Urinary tract infection without hematuria, site unspecified Start: 07-05-2025 End: 07-05-2025 Telephone encounter Viridiana Mathews MD Work Phone: [facility] Gyne[facility] Oncology, A Department of [facility] Comment on above: Appointment Start: 07-03-2025 End: 07-03-2025 ambulatory VJ Cohen [facility] Start: 07-02-2025 End: 07-05-2025 Evaluation and management of inpatient Ben Thibodeaux MD Work Phone: [facility] - 2 Med Surg Comment on above: Adnexal mass (Primar y Dx); Intractable nausea and vomiting; Type 2 diabetes mellitus without complication, without long-term current use of insulin ([facility] Generalized weakness; Hypomagnesemia; Iron deficiency anemia due to chronic blood loss Start: 07-02-2025 End: 07-02-2025 ambulatory QUINCY Vicki [facility] Start: 06-25-2025 End: 06-25-2025 ambulatory Ra Maravilla [facility] Work Phone: Start: 06-25-2025 End: 06-25-2025 Departed Referred Ra Cohen DO -LAB [facility] Start: 06-21-2025 End: 07-10-2025 Telephone encounter Joie FRIEND Work Phone: [facility] Comment on above: wants to know if she can do outpatient wants to be referred Start: 06-18-2025 End: 06-19-2025 Telephone encounter Joie FRIEND Work Phone: [facility] Comment on above: OTC Tylenol not work ing Start: 06-11-2025 End: 06-13-2025 ambulatory QUINCY Vicki [facility] Start: 06-10-2025 End: 06-10-2025 [facility] Start: 06-08-[facility]25 End: 06-08-2025 Emergency department patient visit VJ GRAY [facility] Start: 06-06-2025 End: 06-06-2025 Bamboo flowsheet Joie FRIEND Work Phone: [facility] Start: 06-06-2025 End: 06-06-2025 Bamboo flowsheet Joie FRIEND Work Phone: [facility] Start: 06-06-2025 End: 06-06-2025 Office outpatient visit 15 minutes Joie FRIEND Work Phone: [facility] Comment on above: Acute right hip pain (Primary Dx); Acute pain of both hips; Closed avulsion fracture of right hip with routine healing, subsequent encounter Start: 06-06-2025 End: 06-06-2025 ambulatory JOIE ECHAVARRIA Not Available Start: 06-05-2025 End: 06-05-2025 Transitional care manage srvc 14 day discharge Vj Gray [employer] REPAIRER-CORPORATE STRATEGIST Work Phone: [facility] Internal Medicine - Family Medicine Comment on above: Hospital discharge f ollow-up (Primary Dx); Closed fracture of right hip, sequela Start: 06-05-2025 End: 06-05-[address] [facility] Start: 06-04-2025 End: 06-04-2025 ambulatory [facility] Start: 05-30-2025 End: 05-30-2025 ambulatory [facility] Start: 05-29-2025 End: 05-30-2025 Emergency department patient visit [facility] Start: 05-28-2025 End: 05-28-2025 ambulatory HALLMAN ALI [facility] Start: 05-22-2025 End: 05-22-2025 ambulatory [facility] Start: 05-15-2025 End: 05-15-2025 ambulatory ANA TIDWELL [facility] Start: 05-14-2025 End: 05-14-2025 ambulatory KENNETH Vicki PRYOR [facility] Start: 05-13-2025 End: 05-15-2025 Evaluation and management of inpatient Jack Milligan DO Work Phone: [facility] Comment on above: Acute respiratory fa ilure with hypoxia ([facility]) (Primary Dx); Nondisplaced fracture of lesser trochanter of right femur, initial encounter for closed fracture ([facility]); Generalized weakness; Closed fracture of right hip, initial encounter ([facility]); Hypoxia; Type 2 diabetes mellitus with hypoglycemia without coma, with long-term current use of insulin ([facility]) Start: 05-12-2025 End: 05-12-2025 Emergency department patient visit [facility] Start: 05-12-2025 End: 05-12-2025 ambulatory [facility] Start: 05-11-2025 End: 05-11-2025 Emergency department patient visit [facility] Start: 05-09-2025 End: 05-10-2025 Emergency department patient visit [facility] Start: 05-01-2025 End: 05-01-2025 ambulatory [facility] Start: 04-28-2025 End: 04-28-2025 Emergency department patient visit [facility] Start: 04-05-2025 End: 04-05-2025 ambulatory CLIFF VIVAR [facility] Start: 04-04-2025 End: 04-04-2025 Office outpatient visit 15 minutes Pam RICHEY Work Phone: [facility] Internal [facility] - Family Medicine Comment on above: Moderate major depre ssion ([facility]) (Primary Dx); Insomnia, unspecified type; Normal pressure hydrocephalus ([facility]); Acute on chronic diastolic heart failure (CMS-HCC); Diabetes mellitus type 2, insulin dependent ([facility]) Start: 04-04-2025 End: 04-04-2025 ambulatory [facility] Start: 04-03-2025 End: 04-03-2025 ambulatory Pfo Infusion Chair 4 Stephany Landaverde [facility] Comment on above: Staphylococcus aureu s bacteremia with sepsis [place] (Primary Dx); MRSA (methicillin resistant Staphylococcus aureus) Start: 04-01-2025 End: 04-02-2025 ambulatory Pfo Infusion Bed 1 [facility] Comment on above: Staphylococcus aureu s bacteremia with sepsis [place] (Primary Dx); MRSA (methicillin resistant Staphylococcus aureus) Start: 03-30-2025 End: 04-02-2025 ambulatory [facility]fo Infusion Bed 1 [facility] Comment on above: Staphylococcus aureu s bacteremia with sepsis [place] (Primary Dx); MRSA (methicillin resistant Staphylococcus aureus) Start: 03-28-2025 End: 03-28-2025 ambulatory Pfo Infusion Bed 1 [facility] Comment on above: Staphylococcus aureu s bacteremia with sepsis [place] (Primary Dx); MRSA (methicillin resistant Staphylococcus aureus) Start: 03-26-2025 End: 03-26-2025 ambulatory Pfo Infusion Chair 4 Stephany Landaverde [facility] On[facility] Comment on above: Staphylococcus aureu s bacteremia with sepsis [place] (Primary Dx); MRSA (methicillin resistant Staphylococcus aureus) Start: 03-24-2025 End: 03-24-2025 Emergency department patient visit [facility] Start: 03-24-2025 End: 03-24-2025 ambulatory Pfo Infusion Chair 4 Stephany Landaverde [facility] Comment on above: Staphylococcus aureu s bacteremia with sepsis [place] (Primary Dx); MRSA (methicillin resistant Staphylococcus aureus) Start: 03-23-2025 ambulatory [facility] Start: 03-22-2025 End: 03-22-2025 ambulatory Pfo Infusion Chair 4 Stephany Landaverde [facility] Comment on above: Staphylococcus aureu s bacteremia with sepsis ([facility]) (Primary Dx); MRSA (methicillin resistant Staphylococcus aureus) Start: 03-22-2025 End: 03-22-2025 ambulatory [facility] Start: 03-20-2025 End: 03-20-2025 Social Work Monik BRADLEYW Stephany correa [facility] Comment on above: Staphylococcus aureu s bacteremia with sepsis ([facility]) (Primary Dx); MRSA (methicillin resistant Staphylococcus aureus) Start: 03-16-2025 End: 03-20-2025 Emergency department patient visit SAS[facility] Start: 03-16-2025 End: 03-19-2025 Evaluation and management of inpatient [facility] Start: 03-14-2025 End: 03-14-2025 ambulatory Pfo Infusion Chair 4 Stephany Landaverde [facility] Comment on above: Staphylococcus aureu s bacteremia with sepsis ([facility]) (Primary Dx); MRSA (methicillin resistant Staphylococcus aureus) Start: 03-12-2025 End: 03-12-2025 ambulatory Pfo Infusion Chair 4 Stephany Landaverde [facility] Comment on above: Staphylococcus aureu s bacteremia with sepsis ([facility]) (Primary Dx); MRSA (methicillin resistant Staphylococcus aureus) Start: 03-09-2025 End: 03-09-2025 Orders Only Fátima Landaverde [facility] - Medical Oncology Comment on above: Staphylococcus aureu s bacteremia with sepsis ([facility]) (Primary Dx) Start: 03-08-2025 End: 03-08-2025 Orders Only Janay Causey [facility] Work Phone: Stephany Landaverde [facility] - Medical Oncology Comment on above: MRSA (methicillin re sistant Staphylococcus aureus) (Primary Dx); Staphylococcus aureus bacteremia with sepsis ([facility]) Start: 02-18-2025 End: 02-18-2025 [facility] Comment on above: critical lab Start: 02-15-2025 End: 02-15-2025 ambulatory [facility] Start: 02-14-2025 End: 02-24-2025 Evaluation and management of inpatient MARYCARMEN ADA AZAR [facility] Start: 02-12-2025 End: 02-14-2025 Evaluation and management of inpatient [facility] Start: 02-12-2025 End: 02-12-2025 Kendall Villar Work Phone: [facility] Start: 02-12-2025 ambulatory Kendall Villar [facility] Start: 02-03-2025 End: 02-03-2025 ambulatory [facility] Start: 02-02-2025 End: 02-02-2025 ambulatory [facility] Start: 01-25-2025 End: 01-25-2025 Office outpatient visit 40 minutes Casimiro Muñoz MD Work Phone: Stephany Carnes [facility] - Medical Oncology Comment on above: Malignant neoplasm o f upper-outer quadrant of right breast in female, estrogen receptor positive (CMS-HCC) (Primary Dx); Metastasis to bone (CMS-HCC) Start: 01-25-2025 End: 01-25-2025 ambulatory CASIMIRO MUÑOZ [facility] Start: 01-22-2025 End: 01-22-2025 ambulatory [facility] Start: 01-22-2025 End: 01-22-2025 ambulatory [facility] Start: 01-22-2025 End: 01-22-2025 Office outpatient visit 15 minutes Pam J [facility] [employer] E[employer]IPMENT REPAIRER-CORPORATE STRATEGIST Work Phone: [facility] Internal Medicine - Family Medicine Comment on above: Insomnia, unspecifie d type (Primary Dx); Moderate episode of recurrent major depressive disorder (CMS-HCC); Stage 3b chronic kidney disease (CMS-HCC) Start: 01-18-2025 End: 01-18-2025 Office outpatient new 45 minutes Kendall Villar Work Phone: [facility] Start: 01-18-2025 End: 01-22-2025 Refill Pam Stinson [employer]IPMENT REPAIRER-CORPORATE STRATEGIST Work Phone: [facility] - Family Medicine Comment on above: Neuropathy due to ty pe 2 diabetes mellitus ([facility] Start: 01-15-2025 End: 01-15-2025 Orders Only Fátima Landaverde [facility] - Medical Oncology Comment on above: Malignant neoplasm o f upper-outer quadrant of right breast in female, estrogen receptor positive ([facility]) (Primary Dx) Start: 01-11-2025 End: 01-11-2025 Emergency department patient visit [facility] Start: 01-10-2025 End: 01-10-2025 Emergency department patient visit NING Estrella [facility] Start: 01-03-2025 End: 01-03-2025 Emergency department patient visit [facility] Start: 12-05-2024 ambulatory [facility] Start: 12-04-2024 End: 12-04-2024 ambulatory [facility] Start: 11-28-2024 End: 11-28-2024 Office outpatient visit 25 minutes Pam Stinson [employer]IPMENT REPAIRER-CORPORATE STRATEGIST Work Phone: [facility] - Family Medicine Comment on above: 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 [place] (Primary Dx); Insomnia, unspecified type; Elevated troponin level; Recurrent UTI Start: 11-28-2024 End: 11-28-2024 ambulatory [facility] Start: 11-24-2024 End: 11-24-2024 Office outpatient visit 25 minutes Radha Moran MD Work Phone: [facility] Card[facility] Comment on above: Nonrheumatic aortic valve stenosis (Primary Dx); S/p TAVR (transcatheter aortic valve replacement), bioprosthetic; Coronary artery disease involving red cliff coronary artery of red cliff heart without angina pectoris Start: 11-24-2024 End: 11-24-2024 ambulatory RADHA MORAN [facility] Start: 11-23-2024 End: 11-23-2024 Telephone encounter Jazzmine Vega CMA [facility] Start: 11-19-2024 End: 11-19-2024 Emergency department patient visit PAM J [facility] Start: 11-17-2024 End: 11-18-2024 Emergency department patient visit PAM J [facility] Start: 11-13-2024 End: 11-13-2024 Telephone encounter Irina Brunner MD Work Phone: [facility] Comment on above: Hospital Follow-up Start: 11-10-2024 End: 11-10-2024 Telephone encounter Maddie Givens RN Work Phone: [facility] Start: 11-09-2024 End: 11-10-2024 ambulatory [facility] Start: 10-27-2024 End: 10-30-2024 Evaluation and management of inpatient [facility] Start: 10-25-2024 End: 10-25-2024 Orders Only Sacha Rosales DO Work Phone: [facility] Start: 10-11-2024 End: 10-11-2024 Emergency department patient visit [facility] Start: 10-09-2024 End: 10-10-2024 Emergency department patient visit [facility] Start: 09-15-2024 End: 09-15-2024 [facility] Start: 09-06-2024 End: 09-06-2024 [facility]phone [facility] Start: 08-29-2024 End: 09-04-2024 Refill Vj Gray [employer]MENT REPAIRER-CORPORATE STRATEGIST Work Phone: [facility] Start: 08-28-2024 End: 08-28-2024 ambulatory [facility] Start: 08-28-2024 End: 08-28-2024 Transitional care manage srvc 7 day discharge Pam De La Rosa Stinson [employer]IPMENT REPAIRER-CORPORATE STRATEGIST Work Phone: [facility] - Family Medicine Comment on above: Hypoglycemia (Primar y Dx); Need for influenza vaccination; Altered mental status, unspecified altered mental status type Start: 08-24-2024 End: 08-24-2024 Refill Vj D Krotzer [employer]IPMENT REPAIRER-CORPORATE STRATEGIST [facility] Start: 08-23-2024 End: 08-24-2024 ambulatory [facility] Start: 08-16-2024 End: 08-18-2024 Telephone encounter Delisa Torres RN [facility] - Family Medicine Comment on above: Transition Of Care Start: 08-12-2024 End: 08-14-2024 Evaluation and management of inpatient MELY Jorge [facility] Start: 07-12-2024 End: 07-12-2024 Refill Vj D Krotzer [employer]IPMENT REPAIRER-CORPORATE STRATEGIST Work Phone: [facility] Start: 06-21-2024 End: 06-21-2024 Transitional care manage srvc 7 day discharge Pam Stinson [employer]IPMENT REPAIRER-CORPORATE STRATEGIST [facility] Comment on above: Hypoglycemia (Primar y Dx); Mild intermittent reactive airway disease with acute exacerbation Start: 06-21-2024 End: 06-21-2024 ambulatory [facility] Start: 06-02-2024 End: 06-05-2024 Refill Pam Estrella Stinson [employer] E[employer]IPMENT REPAIRER-CORPORATE STRATEGIST [facility] Comment on above: Essential hypertensi on; Major depressive disorder in partial remission, unspecified whether recurrent ([facility]) Start: 05-11-2024 End: 05-12-2024 Refill Pam Stinson [employer]IPMENT REPAIRER-CORPORATE STRATEGIST [facility] Phone[facility] Comment on above: Major depressive dis order in partial remission, unspecified whether recurrent ([facility]) Start: 05-03-2024 End: 05-03-2024 Transitional care manage srvc 7 day discharge Pam Stinson [employer]IPMENT REPAIRER-CORPORATE STRATEGIST Work Phone: [facility] - Family Medicine Comment on above: Pneumonia due to oth er specified organism (Primary Dx) Start: 03-09-2024 End: 03-09-2024 Office outpatient visit 25 minutes Casimiro Muñoz MD Work Phone: Stephany Landaverde [facility] - Medical Oncology Comment on above: Malignant neoplasm o f upper-outer quadrant of right breast in female, estrogen receptor positive ([facility]) (Primary Dx); Metastasis to bone ([facility]) Start: 03-09-2024 End: 03-09-2024 Orders Only Rosario Landaverde [facility] - Medical Oncology Comment on above: 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, unspecified estrogen receptor status ([facility]) (Primary Dx); 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 breast in female, estrogen receptor positive ([facility]) Start: 02-28-2024 End: 05-25-2024 Telephone encounter Maria Del Carmen Holland RN [facility] Start: 02-09-2024 End: 02-09-2024 Office outpatient visit 25 minutes Pam Stinson [employer] E[employer]IPMENT REPAIRER-CORPORATE STRATEGIST Work Phone: [facility] - Family Medicine Comment on above: Acute cystitis witho ut hematuria (Primary Dx); Urge incontinence of urine Start: 01-04-2024 Refill Casimiro Muñoz MD Work Phone: Stephany Landaverde [facility] - Medical Oncology Comment on above: 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, unspecified estrogen receptor status ([facility]) Start: 12-15-2023 End: 12-15-2023 Office outpatient visit 25 minutes Pam Stinson [employer] E[employer]IPMENT REPAIRER-CORPORATE STRATEGIST [facility] Comment on above: Upper respiratory tr act infection, unspecified type (Primary Dx); Normal pressure hydrocephalus ([facility]); Moderate episode of recurrent major depressive disorder ([facility]); PVD (peripheral vascular disease) ([facility]); 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 mellitus ([facility]); Stage 3b chronic kidney disease ([facility]); Major depressive disorder in partial remission, unspecified whether recurrent ([facility]); Essential hypertension; GERD without esophagitis; 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 ([facility]) Start: 12-06-2023 Refill Pam nam APRN-CORPORATE STRATEGIST Work Phone: [facility] - Family Medicine Comment on above: Insomnia, unspecifie d type Start: 11-25-2023 End: 11-25-2023 Office outpatient visit 25 minutes Casimiro Muñoz MD Work Phone: [facility] - Medical Oncology Comment on above: 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, unspecified estrogen receptor status ([facility]) (Primary Dx); 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 breast in female, estrogen receptor positive ([facility]) Start: 11-25-2023 Orders Only Rosario Strong RN [facility] - Medical Oncology Comment on above: 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, unspecified estrogen receptor status ([facility]) (Primary Dx); 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 breast in female, estrogen receptor positive ([facility]) Start: 01-13-2023 End: 01-16-2023 ambulatory [facility] Start: 01-13-2023 End: 01-15-2023 Subsequent hospital visit by physician Georges Daniels MD Work Phone: [facility] 3C Observation Comment on above: Arrived Severe aortic valve stenosis (Primary Dx); Type 2 diabetes mellitus with diabetic neuropathy, with long-term current use of insulin ([facility]); Tremors of nervous system; Family history of coronary arteriosclerosis; CHELSEA (obstructive sleep apnea) nonadherent with cpap; Stage 3a chronic kidney disease (HCC); Coronary artery disease involving red cliff coronary artery of red cliff heart without angina pectoris Aortic valve stenosi s, etiology of cardiac valve disease unspecified Start: 12-07-2022 End: 12-11-2022 ambulatory GEORGES DANIELS [facility] Start: 12-07-2022 End: 12-11-2022 Subsequent hospital visit by physician Georges Daniels MD Work Phone: [facility]ENDOL[facility] 5A Stepdown Comment on above: Severe aortic valve stenosis (Primary Dx) Start: 11-24-2022 End: 11-25-2022 ambulatory NOLAN JHA [facility] Start: 11-24-2022 End: 11-24-2022 Subsequent hospital visit by physician Kaylin Physician Credentialing Specialist Daryl CRAVEN Physician Credentialing Specialist Comment on above: Canceled (Case cance lled) Start: 09-28-2022 End: 09-30-2022 Evaluation and management of inpatient MICHAEL DUARTE [facility] Start: 03-31-2022 End: 04-01-2022 ambulatory Vale Contreras Facility:[facility] Start: 03-26-2021 End: 03-27-2021 ambulatory JUAREZMC TOMLINSON [facility] Start: 03-24-2021 End: 03-25-2021 ambulatory LAKESHIA HENRIQUEZ [facility] Start: 03-24-2021 End: 03-24-2021 Subsequent hospital visit by physician Michael [facility] Start: 03-19-2021 End: 03-20-2021 ambulatory PAMDREW STINSON Facility: Start: 05-24-2013 End: 05-24-2013 Gordy Momin Jr Work Phone: [facility] [place] Start: 04-26-2013 End: 04-26-2013 Gordy Momin Jr Work Phone: [facility] [place] Start: 03-29-2013 End: 03-29-2013 Gordy Momin Jr Work Phone: [facility] [place] Start: 02-01-2013 End: 02-01-2013 Gordy Momin Jr Work Phone: [facility] [place] Start: 12-21-2012 End: 12-21-2012 Gordy Momin Jr Work Phone: [facility] [place] Start: 11-02-2012 End: 11-02-2012 Office outpatient visit 15 minutes Gordy Momin Jr Work Phone: [facility] [place] Start: 10-05-2012 End: 10-05-2012 Office outpatient visit 15 minutes Gordy Momin Jr Work Phone: [facility] [place] Start: 08-31-2012 End: 08-31-2012 Office outpatient visit 15 minutes Gordy Momin Jr Work Phone: [facility] [place] Start: 08-25-2012 End: 08-25-2012 Gordy Momin Jr Work Phone: [facility] [place] Procedures Date Procedure Procedure Detail Performing Clinician Start: 07-17-2025 Antibody screen MARYCARMEN ANUPAMA MMANA Comment on above: Performed By: #### C [facility], [facility], [id number] #### [facility] ([id number]) [address] [place] [address], [address] [place] [address] Start: 07-12-2025 Antibody screen MARYCARMEN ANUPAMA MMANA Comment on above: Performed By: #### 2 [id number] #### [facility] ([id number]) [address] [place] [address], [address] [place] [address] Start: 07-12-2025 Adult depression scr eening assessment Sacha Thompsonindioflora DO Work Phone: Start: 07-10-2025 Radex hip unilateral with pelvis 2-3 views Joie FRIEND Work Phone: Start: 07-05-2025 BEDSIDE GLUCOSE Felix Hallman MD Work Phone: Start: 07-05-2025 BEDSIDE GLUCOSE Felix Hallman MD Work Phone: Start: 07-05-2025 BEDSIDE GLUCOSE Felix Hallman MD Work Phone: Start: 07-05-2025 Comprehensive metabo lic panel Felix Hallman MD Work Phone: Start: 07-04-2025 BEDSIDE GLUCOSE Felix Hallman MD Work Phone: Start: 07-04-2025 BEDSIDE GLUCOSE Felix Hallman MD Work Phone: Start: 07-04-2025 BEDSIDE GLUCOSE Felix Hallman MD Work Phone: Start: 07-04-2025 BEDSIDE GLUCOSE Felix Hallman MD Work Phone: Start: 07-04-2025 Comprehensive metabo lic panel Felix Hallman MD Work Phone: Start: 07-03-2025 BEDSIDE GLUCOSE Felix Hallman MD Work Phone: Start: 07-03-2025 BEDSIDE GLUCOSE Felix Hallman MD Work Phone: Start: 07-03-2025 Radiologic exam abdo men 1 view Jazmine Do [employer] EQUIPMENT REPAIRER-[facility] Work Phone: Start: 07-03-2025 BEDSIDE GLUCOSE Felix Hallman MD Work Phone: Start: 07-03-2025 BEDSIDE GLUCOSE Felix Hallman MD Work Phone: Start: 07-03-2025 Comprehensive metabo lic panel Felix Hallman MD Work Phone: Start: 07-02-2025 BEDSIDE GLUCOSE Felix Hallman MD Work Phone: Start: 07-02-2025 Assay of phosphorus inorganic Felix Hallman MD Work Phone: Start: 07-02-2025 PULSE OXIMETRY, SPOT Tyler Hallman MD Work Phone: Start: 06-06-2025 Radiologic examinati on pelvis 1/2 views Joie FRIEND Work Phone: Start: 06-05-2025 Adult depression scr eening assessment Vj Gray [employer] EQUIPMENT REPAIRER-CORPORATE STRATEGIST Work Phone: Start: 05-15-2025 BEDSIDE GLUCOSE Felix Hallman MD Work Phone: Start: 05-15-2025 Comprehensive metabo lic panel Nayana Bermudez [employer] EQUIPMENT REPAIRER-CORPORATE STRATEGIST Work Phone: Start: 05-15-2025 EXTRA TUBES Felix Hallman MD Work Phone: Start: 05-15-2025 EXTRA TUBES SST TOP Tylerq marco antonio Hallman MD Work Phone: Start: 05-14-2025 BEDSIDE GLUCOSE Felix Hallman MD Work Phone: Start: 05-14-2025 Assay of magnesium Vj Gray [employer] EQUIPMENT REPAIRER-CORPORATE STRATEGIST Work Phone: Start: 05-14-2025 BEDSIDE GLUCOSE Felix Hallman MD Work Phone: Start: 05-14-2025 Ct head/brain w/o co ntrast material Vj Gray [employer] EQUIPMENT REPAIRER-CORPORATE STRATEGIST Work Phone: Start: 05-14-2025 BEDSIDE GLUCOSE Felix Hallman MD Work Phone: Start: 05-14-2025 End: 05-14-2025 Comprehensive metabolic panel Nayana Bermudez [employer] EQUIPMENT REPAIRER-CORPORATE STRATEGIST Work Phone: Start: 05-13-2025 BEDSIDE GLUCOSE Thania Martinez MD Work Phone: Start: 05-13-2025 Blood count hemoglobin Nayana Bermudez [employer] EQUIPMENT REPAIRER-CORPORATE STRATEGIST Work Phone: Start: 05-13-2025 EXTRA TUBES Thania Martinez MD Work Phone: Start: 05-13-2025 EXTRA TUBES PST TOP Jag juan josé Martinez MD Work Phone: Start: 05-13-2025 BEDSIDE GLUCOSE Jack A Park DO Work Phone: Start: 05-13-2025 Ct lower extremity w /o contrast material Jazmine Bossfilipe [employer] EQUIPMENT REPAIRER-CORPORATE STRATEGIST Work Phone: Start: 05-13-2025 Assay of troponin quantitative Jazmine Bustillo [employer] EQUIPMENT REPAIRER-CORPORATE STRATEGIST Work Phone: Start: 05-13-2025 PM ED CRITICAL CARE Petros dugan Vicki Karynfilipe [employer] EQUIPMENT REPAIRER-CORPORATE STRATEGIST Work Phone: Start: 05-13-2025 Blood gases any comb ination ph pco2 po2 co2 hco3 Jack A Park DO Work Phone: Start: 05-13-2025 EXTRA TUBES Jack A Pa rk DO Work Phone: Start: 05-13-2025 EXTRA TUBES BLUE TOP Je sse A Park DO Work Phone: Start: 05-13-2025 End: 05-13-2025 Culture bacterial blood aerobic w/id isolates Jazmine Vicki Keny [employer] EQUIPMENT REPAIRER-CORPORATE STRATEGIST Work Phone: Start: 05-13-2025 C-reactive protein Silvina el Vicki Karynfilipe [employer] EQUIPMENT REPAIRER-CORPORATE STRATEGIST Work Phone: Start: 05-13-2025 End: 05-13-2025 Comprehensive metabolic panel Jazmine Vicki Karynfilipe [employer] EQUIPMENT REPAIRER-CORPORATE STRATEGIST Work Phone: Start: 05-13-2025 Radiologic exam ches t single view Jazmine Bustillo [employer] EQUIPMENT REPAIRER-CORPORATE STRATEGIST Work Phone: Start: 05-13-2025 Ecg routine ecg w/le ast 12 lds trcg only w/o i&r Jazmine Vicki Karynfilipe [employer] EQUIPMENT REPAIRER-CORPORATE STRATEGIST Work Phone: Start: 04-04-2025 Adult depression scr eening assessment Pam Stinson [employer] EQUIPMENT RE[employer] Work Phone: Start: 03-26-2025 Basic metabolic pane l calcium total Delgado Leahy MD Work Phone: Start: 01-18-2025 End: 01-18-2025 Bevacizumab injection Kendall Villar MD Start: 01-18-2025 End: 01-18-2025 Computerized ophthalmic imaging retina Kendall Villar MD Start: 01-18-2025 Fundus Photos No Charge Sarai Harris Start: 01-18-2025 End: 01-18-2025 Fundus Photos No Charge Bilateral Kendall Villar MD Start: 01-18-2025 End: 01-18-2025 Intravitreal njx pharmacologic agt spx Kendall Villar MD Start: 11-28-2024 Adult depression scr eening assessment Pam Stinson APRN-[facility] Work Phone: Start: 11-24-2024 Follow-up visit Follow-up RADHA MORAN Start: 10-28-2024 Adult depression scr eening assessment Maddie Givens RN Work Phone: Start: 08-28-2024 Adult depression scr eening assessment Pam Stinson [employer] AND [employer] EQUIPMENT REPAIRER-[facility] Work Phone: Start: 06-21-2024 Follow-up visit Follow-up PAM STINSON Start: 06-21-2024 Adult depression scr eening assessment Pam Stinson [employer] EQUIPMENT REPAIRER-[facility] Work Phone: Start: 05-03-2024 Adult depression scr eening assessment Pam Stinson [employer] EQUIPMENT REPAIRER-[facility] Work Phone: Start: 03-02-2024 Adult depression scr eening assessment Rosario Strong RN Start: 02-09-2024 Urnls dip stick/tabl et rgnt non-auto w/o micrscp Pam Stinson [employer] EQUIPMENT REPAIRER-[facility] Work Phone: Start: 02-09-2024 Adult depression scr eening assessment Pam Stinson APRN-[facility] Work Phone: Start: 12-15-2023 Adult depression scr eening assessment Pam Stinson [facility] Work Phone: Start: 08-17-2023 Adult depression scr eening assessment Rosario Strong RN Start: 01-13-2023 Brncdilat rspse spmt ry pre&post-brncdilat admn 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 [facility] Work Phone: Start: 01-13-2023 Ct angiography chest w/contrast/noncontrast 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 [facility] Work Phone: Start: 12-11-2022 Glucose blood reagent strip Georges Daniels MD Work Phone: Start: 12-10-2022 Glucose blood reagent strip Georges Daniels MD Work Phone: Start: 12-10-2022 Glucose blood reagent strip Georges Daniels MD Work Phone: Start: 12-10-2022 Glucose blood reagent strip Georges Daniels MD Work Phone: Start: 12-10-2022 Basic metabolic pane l calcium total Rita Leos [facility] Work Phone: Start: 12-10-2022 Antibody screen Georges morales MD Work Phone: Start: 12-10-2022 End: 12-10-2022 Glucose blood reagent strip Georges Daniels MD Work Phone: Start: 12-09-2022 End: 12-09-2022 Blood count hemoglobin Georges Daniels MD Work Phone: Start: 12-09-2022 Glucose blood reagent strip Georges Daniels MD Work Phone: Start: 12-09-2022 End: 12-09-2022 Transfusion of packed red blood cells Radha Moya [facility] Work Phone: Start: 12-09-2022 Glucose blood reagent strip Georges Daniels MD Work Phone: Start: 12-09-2022 BASIC METABOLIC PANE L W/ REFLEX TO MG FOR LOW K Nadira Jin MD Start: 12-09-2022 End: 12-09-2022 Blood count hemoglobin Nadira Jin MD Start: 12-08-2022 Glucose blood reagent strip Georges Daniels MD Work Phone: Start: 12-08-2022 Blood count hemoglobin Hemindermrachel Trejo MD Work Phone: Start: 12-08-2022 Glucose blood reagent strip Georges Daniels MD Work Phone: Start: 12-08-2022 Blood count hemoglobin Georges Daniels MD Work Phone: Start: 12-08-2022 BASIC METABOLIC PANE L W/ REFLEX TO MG FOR LOW K Ryan Velasquez MD Work Phone: Start: 12-08-2022 SPECIMEN REJECTION Edward Velasquez MD Work Phone: Start: 12-08-2022 End: 12-08-2022 Blood count hemoglobin Georges Daniels MD Work Phone: Start: 12-08-2022 End: 12-08-2022 Transfusion of packed red blood cells Lexx Franklin MD Work Phone: Start: 12-08-2022 Blood count hemoglobin Lexx Franklin MD Work Phone: Start: 12-08-2022 Basic metabolic pane l calcium total Nadira Jin MD Start: 12-07-2022 End: 12-07-2022 Blood count hemoglobin Georges Daniels MD Work Phone: Start: 12-07-2022 Glucose blood reagent strip Georges Daniels MD Work Phone: Start: 12-07-2022 End: 12-07-2022 Transfusion of packed red blood cells Georges Daniels MD Work Phone: Start: 12-07-2022 Dup-scan lxtr art/ar tl bpgs uni/lmtd study Sebastian Martinez MD Work Phone: Start: 12-07-2022 End: 12-07-2022 Blood count hemoglobin Georges Daniels MD Work Phone: Start: 12-07-2022 Blood typing serologic abo Georges Daniels MD Work Phone: Start: 12-07-2022 Coagulation time activated Georges Daniels MD Work Phone: Start: 12-07-2022 Cardiac catheterization Nadira Jin MD Start: 12-07-2022 Chloride [Moles/volu me] in Serum or Plasma Georges Daniels MD Work Phone: Start: 12-07-2022 CREATININE W/GFR POI NT OF CARE Georges Daniels MD Work Phone: Start: 12-07-2022 Gluc bld gluc mntr d ev cleared fda spec home use Georges Daniels MD Work Phone: Start: 12-07-2022 Potassium [Moles/vol ume] in Serum or Plasma Georges Daniels MD Work Phone: Start: 12-07-2022 Sodium [Moles/volume ] in Serum or Plasma Georges Daniels MD Work Phone: Start: 11-24-2022 Chloride [...] 03-24-2021 Assay of blood/uric acid Lakeshia Henriquez [employer] AND [employer] EQUIPMENT REPAIRER - CORPORATE STRATEGIST Work Phone: Start: 05-24-2013 End: 05-24-2013 Diabetic Dilated Exam Kendall Villar MD Start: 05-24-2013 End: 05-24-2013 [facility]&eval intermediate estab pt Kendall Villar MD Start: 04-26-2013 End: 04-26-2013 Diabetic Dilated Exam Kendall Villar MD Start: 04-26-2013 End: 04-26-2013 Intravitreal njx pharmacologic agt spx Kendall Villar MD Start: 04-26-2013 End: 04-26-2013 [facility]&eval intermediate estab pt Kendall Villar MD Start: 04-26-2013 End: 04-26-2013 Ranibizumab injection Kendall Villar MD Start: 03-29-2013 End: 03-29-2013 Diabetic Dilated Exam Kendall Villar MD Start: 03-29-2013 End: 03-29-2013 Intravitreal njx pharmacologic agt spx Kendall Villar MD Start: 03-29-2013 End: 03-29-2013 [facility]&eval comprhnsv estab pt 1/> Kendall Villar MD Start: 03-29-2013 End: 03-29-2013 Ranibizumab injection Kendall Villar MD Start: 02-01-2013 End: 02-01-2013 Intravitreal njx pharmacologic agt spx Kendall Villar MD Start: 02-01-2013 End: 02-01-2013 [facility]&eval intermediate estab pt Kendall Villar MD Start: 02-01-2013 End: 02-01-2013 Ranibizumab injection Kendall Villar MD Start: 12-21-2012 End: 12-21-2012 Intravitreal njx pharmacologic agt spx Kendall Villar MD Start: 12-21-2012 End: 12-21-2012 [facility]&eval comprhnsv estab pt 1/> Kendall Villar MD [...] Treatment Date Care Activity Detail Author Start: 07-13-2026 Tobacco Screening Tobacco Screening [facility] Start: 07-12-2026 Depression Screening Depression Screening [facility] Start: 07-02-2026 Tobacco Screening Tobacco Screening [facility] Start: 06-05-2026 Depression Screening Depression Screening [facility] Start: 06-05-2026 Fall Risk Screening Fall Risk Screening [facility] Start: 06-05-2026 Tobacco Screening Tobacco Screening [facility] Start: 04-04-2026 Depression Screening Depression Screening [facility] Start: 04-04-2026 Fall Risk Screening Fall Risk Screening [facility] Start: 04-04-2026 Tobacco Screening Tobacco Screening [facility] Start: 04-03-2026 Tobacco Screening Tobacco Screening [facility] Start: 03-28-2026 Tobacco Screening Tobacco Screening [facility] Start: 03-26-2026 Tobacco Screening Tobacco Screening [facility] Start: 03-22-2026 Tobacco Screening Tobacco Screening [facility] Start: 03-20-2026 Fall Risk Screening Fall Risk Screening [facility] Start: 03-20-2026 Tobacco Screening Tobacco Screening [facility] Start: 03-14-2026 Tobacco Screening Tobacco Screening [facility] Start: 02-14-2026 Tobacco Screening Tobacco Screening [facility] Start: 02-03-2026 Urine screening for protein Diabetes: Urine Protein Screening [facility] Start: 01-25-2026 Tobacco Screening Tobacco Screening [facility] Start: 01-22-2026 Tobacco Screening Tobacco Screening [facility] Start: 01-10-2026 Tobacco Screening Tobacco Screening [facility] Start: 11-28-2025 Depression Screening Depression Screening [facility] Start: 11-28-2025 Fall Risk Screening Fall Risk Screening [facility] Start: 11-28-2025 Tobacco Screening Tobacco Screening [facility] Start: 11-17-2025 Tobacco Screening Tobacco Screening [facility] Start: 11-09-2025 Tobacco Screening Tobacco Screening [facility] Start: 10-28-2025 Depression Screening Depression Screening [facility] Start: 10-11-2025 Tobacco Screening Tobacco Screening [facility] Start: 09-05-2025 End: 09-05-2025 Patient encounter procedure 09/05/2025 1:00 PM EDT Office Visit [facility] - [facility] Medicine [address] [place] [address] Vj Gray, L[employer] EQUIPMENT REPAIRER-CORPORATE STRATEGIST [address], [facility] [address] [place] [id number] [facility] - Family Medicine [...] Screening Tobacco Screening [facility] Start: 08-20-2025 End: 08-20-2025 Patient encounter procedure 08/20/2025 1:00 PM EDT Office Visit [facility] Card[facility] [address] [place] [phone] Tawny Engel MD [address] [place] [address] [facility] Start: 08-12-2025 Adult BMI Screening Adult BMI Screening [facility] Start: 08-12-2025 Tobacco Screening Tobacco Screening [facility] Start: 07-30-2025 End: 07-30-2025 Patient encounter procedure 07/30/2025 9:15 AM EDT [facility] Adult Reconstruction [address] [facility] [address] [place] [phone] Ra Marinelli MD [address] [place] [address] [facility] Orthopedics/Trauma and Adult Reconstruction Start: 07-16-2025 Influenza vaccination [facility] Start: 07-12-2025 End: 07-05-2026 Basic metabolic 2000 panel - Serum or Plasma Basic Metabolic Panel Lab Routine Intractable nausea and vomiting Type 2 diabetes mellitus without complication, without long-term current use of insulin ([facility]) Generalized weakness Expected: 07/12/2025 (Approximate), Expires: 07/05/2026 [facility] Work Phone: Comment on above: Expected: 07/12/2025 (Approximate), Expi res: 07/05/2026 Start: 07-12-2025 End: 07-05-2026 CBC W Auto Differential panel - Blood CBC auto differential Lab Routine Iron deficiency anemia due to chronic blood loss Expected: 07/12/2025 (Approximate), Expires: 07/05/2026 [facility] Comment on above: Expected: 07/12/2025 (Approximate), Expi res: 07/05/2026 Start: 07-12-2025 End: 07-05-2026 Magnesium [Mass/volume] in Serum or Plasma Magnesium Lab Routine Hypomagnesemia Expected: 07/12/2025 (Approximate), Expires: 07/05/2026 [facility] Comment on above: Expected: 07/12/2025 (Approximate), Expi res: 07/05/2026 Start: 07-10-2025 End: 07-10-2025 Patient encounter procedure [facility] Start: 06-28-2025 Tobacco Screening Tobacco Screening [facility] Start: 06-26-2025 Bacteria identified in Urine by Culture Urine Culture [facility] Start: 06-26-2025 Urine culture [facility] Start: 06-25-2025 Adult BMI Screening Adult BMI Screening [facility] Start: 06-25-2025 Tobacco Screening Tobacco Screening [facility] Start: 06-21-2025 Depression Screening Depression Screening [facility] Start: 06-21-2025 Fall Risk Screening Fall Risk Screening [facility] Start: 06-06-2025 End: 06-06-2025 Patient encounter procedure 06/06/2025 1:30 PM EDT Office Visit [facility] [address] [place] [address] Joie Echavarria PA [address] [place] [address] Acute right hip pain (Primary Dx) [facility] Comment on above: Acute right hip pain (Primary Dx) Start: 05-22-2025 End: 05-15-2026 Basic metabolic 2000 panel - Serum or Plasma Basic Metabolic Panel Lab Routine Type 2 diabetes mellitus with hypoglycemia without coma, with long-term current use of insulin ([facility]) Expected: 05/22/2025 (Approximate), Expires: 05/15/2026 [facility] Work Phone: Comment on above: Expected: 05/22/2025 (Approximate), Expi res: 05/15/2026 Start: 05-03-2025 End: 05-03-2025 Patient encounter procedure 05/03/2025 2:15 PM EDT Office Visit Stephany Landaverde [facility] - Medical Oncology [address] [place] [phone] Casimiro Muñoz MD [address] [facility] [address] [place] [id number] Stephany Landaverde [facility] Start: 05-03-2025 Adult BMI Screening Adult BMI Screening [facility] Start: 05-03-2025 Depression Screening Depression Screening [facility] Start: 05-03-2025 Fall Risk Screening Fall Risk Screening [facility] Start: 05-03-2025 Tobacco Screening Tobacco Screening [facility] Start: 04-10-2025 End: 04-10-2025 Patient encounter procedure 04/10/2025 3:20 PM EDT [facility] [address] [place] [address] Pam Stinson, [employer] EQUIPMENT REPAIRER-CORPORATE STRATEGIST [address] [place] [address] [facility] Internal Medicine - Family Medicine Start: 04-04-2025 End: 04-04-2025 Patient encounter procedure 04/04/2025 9:00 AM EDT Office Visit [facility] Internal Medicine - Family Medicine [address] [place] [address] Pam Stinson, [employer] EQUIPMENT REPAIRER-CORPORATE STRATEGIST [address] [place] [address] [facility] Internal Medicine - Family Medicine Start: 04-03-2025 End: 04-03-2025 ambulatory 04/03/2025 8:00 AM EDT Infusion Stephany Landaverde [facility] - Medical Oncology [address] [place] [phone] Stephany Landaverde [facility] Start: 04-01-2025 End: 04-01-2025 ambulatory 04/01/2025 8:00 AM EDT Infusion Stephany Landaverde [facility] - Medical Oncology [address] [place] [phone] Stephany Landaverde [facility] - [facility] Oncology Start: 03-30-2025 End: 03-30-2025 ambulatory 03/30/2025 8:00 AM EDT Infusion Stephany Landaverde [facility] - Medical Oncology [address] [place] [address] Stephany Landaverde [facility] Start: 03-28-2025 End: 03-28-2025 ambulatory 03/28/2025 8:30 AM EDT Infusion Stephany L Oktibbeha [facility] Medical Oncology [address] [place] [phone] Stephany Carnes Akhil [facility] - Medical Oncology Start: 03-26-2025 End: 03-26-2025 ambulatory Stephanyneida Landaverde Cance [facility] Medical Oncology Start: 03-24-2025 End: 03-24-2025 ambulatory 03/24/2025 8:00 AM EDT Infusion Stephany L Akhil [facility] Medical Oncology [address] [place] [phone] Stephany Carnes Akhil [facility] Oncology Start: 03-22-2025 End: 03-22-2025 ambulatory 03/22/2025 8:30 AM EDT Infusion Stephany Carnes Akhil [facility] Medical Oncology [address] [place] [phone] Stephany L Akhil [facility] Oncology Start: 03-20-2025 End: 03-20-2025 ambulatory 03/20/2025 8:00 AM EDT Infusion Stephany Carnes Oktibbeha [facility] Medical Oncology [address] [place] [phone] Stephany L Akhil [facility] - Medical Oncology Start: 03-18-2025 End: 03-18-2025 ambulatory Stephany L Akhil [facility] Medical Oncology Start: 03-16-2025 End: 03-16-2025 ambulatory Stephany Landaverde [facility] On[facility] Start: 03-14-2025 End: 03-14-2025 ambulatory Stephany Landaverde [facility] Medical Oncology Start: 03-12-2025 End: 03-12-2025 ambulatory 03/12/2025 8:00 AM EDT Infusion Stephany L Akhil [facility] - Medical Oncology [address] [place] [phone] Stephany L Akhil [facility] - Medical Oncology Start: 03-09-2025 Adult BMI Screening Adult BMI Screening [facility] Start: 03-08-2025 Tobacco Screening Tobacco Screening [facility] Start: 03-04-2025 Hemoglobin A1c measurement Diabetes: Hemoglobin A1C [facility] Start: 03-02-2025 Depression Screening Depression Screening [facility] Start: 03-02-2025 Fall Risk Screening Fall Risk Screening [facility] Start: 03-01-2025 End: 03-01-2025 Patient encounter procedure 03/01/2025 2:00 PM EDT Appointment [facility] - Mammography/DEXA Imaging [address] [place] [phone] Casimiro Muñoz MD [address] [place] [address] [facility] - Mammography/DEXA Imaging Start: 02-19-2025 Cuca Dee 4 Weeks IO AVN OS(2-3) NO OCT [facility] Work Phone: Start: 02-08-2025 Adult BMI Follow Up Plan Adult BMI Follow Up Plan [facility] Start: 01-25-2025 End: 01-25-2025 Patient encounter procedure 01/25/2025 2:15 PM EDT Office Visit Stephany Carnes Akhil [facility] - Medical Oncology [address] [place] [address] Casimiro Muñoz MD [address] [place] [address] Stephany Trice Landaverde [facility] - Medical Oncology Start: 01-22-2025 End: 01-22-2025 Patient encounter procedure 01/22/2025 1:40 PM EDT Office Visit [facility] Internal Medicine - Family Medicine [address] [place] [address] Pam Stinson, [employer] EQUIPMENT REPAIRER-CORPORATE STRATEGIST [address] [place] [address] [facility] Internal Medicine - Family Medicine [...] procedure 11/28/2024 2:40 PM EST Office Visit [facility] Internal Medicine - Family Medicine [address] [place] [address] Pam Stinson, [employer] EQUIPMENT REPAIRER-CORPORATE STRATEGIST [address] [facility] [place] [address] [facility] Internal Medicine - Family Medicine Start: 11-25-2024 Adult BMI Screening Adult BMI Screening [facility] Start: 11-24-2024 End: 11-24-2024 Patient encounter procedure 11/24/2024 2:15 PM EST Office Visit [facility] Cardiology [address] [place] [phone] Radha Moran MD [address] [place] [address] [facility] Start: 11-22-2024 End: 11-22-2024 Patient encounter procedure 11/22/2024 2:40 PM EST Office Visit [facility] Internal Medicine - Family Medicine [address] [place] [address] Pam Stinson, [employer] EQUIPMENT REPAIRER-CORPORATE STRATEGIST [address] [place] [phone] [facility] Internal Medicine - Family Medicine Start: 09-28-2024 Tobacco Screening Tobacco Screening [facility] Start: 09-13-2024 End: 09-13-2024 Patient encounter procedure 09/13/2024 2:00 PM EDT Appointment [facility] - Cardiovascular [address] [place] [address] [facility] - Cardiovascular Start: 09-08-2024 End: 09-08-2024 Patient encounter procedure 09/08/2024 2:15 PM EDT Office Visit Stephany Carnes [place] [facility] - Medical Oncology [facility] [place] [address] Casimiro Muñoz MD [address] [facility] [address] [place] [address] Stephany Carnes [place] [facility] - Medical Oncology Start: 09-08-2024 End: 03-09-2025 [...] Annual Wellness (AWV) Medicare Annual Wellness (AWV) [facility] Start: 08-10-2024 Medicare Annual Wellness Visit Medicare Annual Wellness Visit [facility] Start: 08-02-2024 End: 08-02-2024 Patient encounter procedure 08/02/2024 1:00 PM EDT Office Visit [facility] Internal Medicine - Family Medicine [address] [place] [phone] Pam Stinson, [employer] EQUIPMENT REPAIRER-[facility] [address] [place] [phone] [facility] Internal Medicine - Family Medicine Start: 07-16-2024 Influenza vaccination Influenza Vaccine [facility] Start: 07-11-2024 End: 07-11-2024 Patient encounter procedure 07/11/2024 2:30 PM EDT Office Visit [facility] Neurology [address] [place] [phone] [place] [address] [place] [address], [address], [address] [place] [address] [facility] Start: 03-09-2024 End: 03-09-2024 Patient encounter procedure 03/09/2024 3:15 PM EDT Office Visit Stephany Landaverde [facility] - Medical Oncology [address] [place] [phone] Casimiro Muñoz MD [address] [place] [address] [address] [place], [place] [phone] Stephany Landaverde [facility] - Medical Oncology Start: 03-09-2024 End: 03-09-2025 MG Breast Diagnostic Mammography diagnostic bilateral with CAD Imaging Routine 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 female breast, unspecified estrogen receptor status ([facility]) 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 breast in female, estrogen receptor positive (CMS-HCC) Expected: 03/09/2024, Expires: 03/09/2025 [facility] Work Phone: Comment on above: Expected: 03/09/2024, Expires: Start: 02-25-2024 End: 11-25-2024 PT Skull base to mid-thigh PET CT skull to thigh Imaging Routine 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 female breast, unspecified estrogen receptor status (CMS-HCC) 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 breast in female, estrogen receptor positive (CMS-HCC) Expected: 02/25/2024, Expires: 11/25/2024 [employer] Work Phone: Comment on above: Expected: 02/25/2024, Expires: Start: 02-24-2024 End: 11-25-2024 Cancer antigen 15-3 Cancer antigen 15-3 Lab Routine 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 female breast, unspecified estrogen receptor status (CMS-HCC) 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 breast in female, estrogen receptor positive (CMS-HCC) Expected: 02/24/2024 (Approximate), Expires: 11/25/2024 [facility] Comment on above: Expected: 02/24/2024 (Approximate), Expi res: 11/25/2024 Start: 02-24-2024 End: 11-25-2024 Cancer antigen 27-29 Cancer antigen 27-29 Lab Routine 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 female breast, unspecified estrogen receptor status (CMS-HCC) 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 breast in female, estrogen receptor positive (CMS-HCC) Expected: 02/24/2024 (Approximate), Expires: 11/25/2024 [facility] Comment on above: Expected: 02/24/2024 (Approximate), Expi res: 11/25/2024 Start: 02-24-2024 End: 11-25-2024 CBC W Auto Differential panel - Blood CBC auto differential Lab Routine 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 female breast, unspecified estrogen receptor status (CMS-HCC) 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 breast in female, estrogen receptor positive (CMS-HCC) Expected: 02/24/2024 (Approximate), Expires: 11/25/2024 [employer] [facility] Comment on above: Expected: 02/24/2024 (Approximate), Expi res: 11/25/2024 Start: 02-24-2024 End: 11-25-2024 Comprehensive metabolic 2000 panel - Serum or Plasma Comprehensive metabolic panel Lab Routine 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 female breast, unspecified estrogen receptor status (CMS-HCC) 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 breast in female, estrogen receptor positive (CMS-HCC) Expected: 02/24/2024 (Approximate), Expires: 11/25/2024 [facility] [employer] [facility] Comment on above: Expected: 02/24/2024 (Approximate), Expi res: 11/25/2024 Start: 01-13-2024 End: 01-13-2024 Patient encounter procedure 01/13/2024 1:00 PM EST Office Visit [facility] Internal Medicine - Family Medicine [address] [place] [address] Pam Stinson, [employer] EQUIPMENT REPAIRER-CORPORATE STRATEGIST [address] [place] [address] [facility] Internal Medicine - Family Medicine Start: 09-02-2023 Lipid panel Lipids [employer] Start: 02-02-2023 End: 02-02-2023 Patient encounter procedure 02/02/2023 Appointment IP Unit [facility] Physician Credentialing Specialist Start: 01-18-2023 End: 01-14-2024 Basic metabolic 2000 panel - Serum or Plasma Basic Metabolic Panel Lab STAT Severe aortic valve stenosis Expected: 01/18/2023, Expires: 01/14/2024 [employer] Work Phone: Comment on above: Expected: 01/18/2023, Expires: Start: 12-17-2022 End: 12-10-2023 Basic metabolic 1999 panel - Serum or Plasma Basic Metabolic Panel Lab Routine Severe aortic valve stenosis Expected: 12/17/2022, Expires: 12/10/2023 [facility] Phone: Comment on above: Expected: 12/17/2022, Expires: 4 Start: 12-17-2022 End: 12-10-2023 Hemoglobin and Hematocrit Hemoglobin and Hematocrit Lab Routine Severe aortic valve stenosis Expected: 12/17/2022, Expires: 12/10/2023 [facility] Phone: Comment on above: Expected: 12/17/2022, Expires: 4 Start: 09-28-2022 Annual Wellness Visit (AWV) Annual Wellness Visit (AWV) [facility] Start: 07-16-2021 Influenza vaccination Flu vaccine (Season Ended) [facility] Start: 04-01-2021 COVID-19 Vaccine (3 - Booster for Pfizer series) COVID-19 Vaccine (3 - Booster for Pfizer series) [facility] Start: 03-04-2021 COVID-19 Vaccine (3 - Pfizer risk series) COVID-19 Vaccine (3 - Pfizer risk series) [facility] Start: 1996 Shingles vaccine (1 of 2) Shingles vaccine (1 of 2) [facility] Start: 1965 Administration of varicella zoster vaccine Zoster (Shingles) Vaccine (1 of 2) [facility] Start: 1965 DTaP,Tdap and Td Vaccines (1 - Tdap) DTaP,Tdap and Td Vaccines (1 - Tdap) [facility] Start: 1965 DTaP/Tdap/Td vaccine (1 - Tdap) DTaP/Tdap/Td vaccine (1 - Tdap) [facility] Start: 1964 Hepatitis C screening Hepatitis C screen [facility] Start: 1962 COVID-19 Vaccine (1) COVID-19 Vaccine (1) [email or web address] Phone: Start: 1958 Depression Screen Depression Screen [facility] Start: 1956 Glaucoma screening Diabetes: Retinopathy Screening [facility] Start: 1946 Creatinine measurement Creatinine monitoring [email or web address] Phone: Start: 1946 Potassium monitoring Potassium monitoring [email or web address] Phone: Bacteria identified in Blood by Aerobe culture [employer] Phone: End: 02-08-2025 Bacteria identified in Urine by Culture Urine culture (clean catch) Microbiology Routine Acute cystitis without hematuria 1 Occurrences starting 02/09/2024 until 02/08/2025 [employer] Phone: Comment on above: 1 Occurrences starting 02/09/2024 until 02/08/2025 Basic metabolic 2000 panel - Serum or Plasma Basic metabolic panel Lab Routine Staphylococcus aureus bacteremia with sepsis ([facility]) MRSA (methicillin resistant Staphylococcus aureus) 03/12/2025 8:20 AM EDT [facility] Basic metabolic 2000 panel - Serum or Plasma Basic metabolic panel Lab Routine Staphylococcus aureus bacteremia with sepsis ([facility]) MRSA (methicillin resistant Staphylococcus aureus) 03/20/2025 9:02 AM EDT [employer] Phone: Basic metabolic 2000 panel - Serum or Plasma Basic metabolic panel Lab Routine Staphylococcus aureus bacteremia with sepsis ([facility]) MRSA (methicillin resistant Staphylococcus aureus) 04/03/2025 8:50 AM EDT [facility] End: 12-07-2022 Blood Bank Specimen [facility] Work Phone: Comment on above: Once for 1 Occurrences starting 12/07/19 until 12/07/2022 End: 11-25-2024 Cancer antigen 15-3 Cancer antigen 15-3 Lab Routine 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 female breast, unspecified estrogen receptor status ([facility]) every 3 months for 50 Occurrences starting 11/25/2023 until 11/25/2024 [facility] Comment on above: every 3 months for 50 Occurrences starti ng 11/25/2023 until 11/25/2024 End: 01-15-2026 Cancer antigen 15-3 Cancer antigen 15-3 Lab Routine 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 breast in female, estrogen receptor positive (CMS-HCC) 1 Occurrences starting 01/15/2025 until 01/15/2026 [facility] Comment on above: 1 Occurrences starting 01/15/2025 until 01/15/2026 End: 11-25-2024 Cancer antigen 27-29 Cancer antigen 27-29 Lab Routine 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 female breast, unspecified estrogen receptor status (CMS-HCC) every 3 months for 50 Occurrences starting 11/25/2023 until 11/25/2024 [facility] Comment on above: every 3 months for 50 Occurrences starti ng 11/25/2023 until 11/25/2024 End: 01-15-2026 Cancer antigen 27-29 Cancer antigen 27-29 Lab Routine 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 breast in female, estrogen receptor positive (CMS-HCC) 1 Occurrences starting 01/15/2025 until 01/15/2026 [facility] Comment on above: 1 Occurrences starting 01/15/2025 until 01/15/2026 End: 11-24-2022 Catheterization and angiography procedure details panel Cardiac Catheterization Cardiac Cath Routine One Time for 1 Occurrences starting 11/24/2022 until 11/24/2022 [employer] Work Phone: Comment on above: One Time for 1 Occurrences starting 11/15 until 11/24/2022 End: 12-07-2022 Catheterization and angiography procedure details panel Cardiac Catheterization Cardiac Cath Routine One Time for 1 Occurrences starting 12/07/2022 until 12/07/2022 [employer] Work Phone: Comment on above: One Time for 1 Occurrences starting 11/16 until 12/07/2022 End: 11-25-2024 CBC W Auto Differential panel - Blood CBC with auto diff Lab Routine 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 female breast, unspecified estrogen receptor status ([facility]) every 3 months for 50 Occurrences starting 11/25/2023 until 11/25/2024 [employer] Work Phone: Comment on above: every 3 months for 50 Occurrences starti ng 11/25/2023 until 11/25/2024 End: 01-15-2026 CBC W Auto Differential panel - Blood CBC with auto diff Lab Routine 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 breast in female, estrogen receptor positive ([facility]) 1 Occurrences starting 01/15/2025 until 01/15/2026 [facility] Work Phone: Comment on above: 1 Occurrences starting 01/15/2025 until 01/15/2026 CBC W Auto Different ial panel - Blood CBC with auto diff Lab Routine Staphylococcus aureus bacteremia with sepsis ([facility]) MRSA (methicillin resistant Staphylococcus aureus) 03/12/2025 8:20 AM EDT [facility] CBC W Auto Different ial panel - Blood CBC with auto diff Lab Routine Staphylococcus aureus bacteremia with sepsis ([facility]) MRSA (methicillin resistant Staphylococcus aureus) 03/20/2025 9:02 AM EDT [facility] CBC W Auto Different ial panel - Blood CBC with auto diff Lab Routine Staphylococcus aureus bacteremia with sepsis ([facility]) MRSA (methicillin resistant Staphylococcus aureus) 03/26/2025 9:44 AM EDT [facility] Work Phone: CBC W Auto Different ial panel - Blood CBC with auto diff Lab Routine Staphylococcus aureus bacteremia with sepsis ([facility]) MRSA (methicillin resistant Staphylococcus aureus) 04/03/2025 8:50 AM EDT [facility] CK Total CK Total Lab Rou burt Staphylococcus aureus bacteremia with sepsis ([facility]) MRSA (methicillin resistant Staphylococcus aureus) 03/12/2025 8:20 AM EDT [facility] Work Phone: CK Total CK Total Lab Rou burt Staphylococcus aureus bacteremia with sepsis ([facility]) MRSA (methicillin resistant Staphylococcus aureus) 04/03/2025 8:50 AM EDT [facility] Work Phone: End: 11-25-2024 Comprehensive metabolic 2000 panel - Serum or Plasma Comprehensive metabolic panel Lab Routine 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 female breast, unspecified estrogen receptor status ([facility]) every 3 months for 50 Occurrences starting 11/25/2023 until 11/25/2024 [facility] Comment on above: every 3 months for 50 Occurrences starti ng 11/25/2023 until 11/25/2024 End: 01-15-2026 Comprehensive metabolic 2000 panel - Serum or Plasma Comprehensive metabolic panel Lab Routine 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 breast in female, estrogen receptor positive [place] 1 Occurrences starting 01/15/2025 until 01/15/2026 [facility] Comment on above: 1 Occurrences starting 01/15/2025 until 01/15/2026 End: 01-13-2023 CT CARDIAC W C STC MORP CARD ONLY [employer] Phone: Comment on above: 1 Occurrences starting 01/13/2023 until 01/13/2023 End: 12-07-2022 EKG 12 lead EKG 12 lead ECG Routine One Time for 1 Occurrences starting 12/07/2022 until 12/07/2022 [employer] Phone: Comment on above: One Time for 1 Occurrences starting 11/16 until 12/07/2022 Fingerstick glucose checks Fingerstick glucose checks Point of Care Testing Routine Intractable nausea and vomiting Type 2 diabetes mellitus without complication, without long-term current use of insulin [place] Generalized weakness Ordered: 07/05/2025 [facility] Comment on above: Ordered: 07/05/2025 Glucose [Mass/volume ] in Serum or Plasma POCT glucose Point of Care Testing Routine 4X Daily (AC & HS) until discontinued starting 12/07/2022 [employer] Phone: Comment on above: 4X Daily (AC & HS) until discontinued st arting 12/07/2022 End: 12-10-2022 Hemoglobin and Hematocrit Hemoglobin and Hematocrit Lab STAT Post Transfusion Post Transfusion Post Transfustion for 1 Occurrences starting 12/09/2022 until 12/10/2022 [employer] Phone: Comment on above: Post Transfusion Post Transfusion Post T ransfustion for 1 Occurrences starting 12/09/2022 until 12/10/2022 Oxygen therapy [[facility] Data Set] Initiate Oxygen Therapy Protocol Respiratory Care Routine As Needed until discontinued starting 11/24/2022 [employer] Phone: Comment on above: As Needed until discontinued starting Oxygen therapy [[employer] Data Set] Initiate Oxygen Therapy Protocol Respiratory Care Routine As Needed until discontinued starting 12/07/2022 [employer] Phone: Comment on above: As Needed until discontinued starting Oxygen therapy [[facility] mum Data Set] Initiate Oxygen Therapy Protocol Respiratory Care Routine As Needed until discontinued starting 12/07/2022 [employer] Comment on above: As Needed until discontinued starting End: 03-09-2026 PICC Line Removal PICC Line Removal Procedures Routine Staphylococcus aureus bacteremia with sepsis ([facility]) 1 Occurrences starting 03/09/2025 until 03/09/2026 [facility] Work Phone: Comment on above: 1 Occurrences starting 03/09/2025 until 03/09/2026 End: 11-24-2022 POC CHEM8 INCLUDES CALC. ANION GAP POC CHEM8 INCLUDES CALC. ANION GAP Point of Care Testing STAT One Time for 1 Occurrences starting 11/24/2022 until 11/24/2022 [employer] Phone: Comment on above: One Time for 1 Occurrences starting 11/15 until 11/24/2022 End: 12-07-2022 POC CHEM8 INCLUDES CALC. ANION GAP POC CHEM8 INCLUDES CALC. ANION GAP Point of Care Testing STAT One Time for 1 Occurrences starting 12/07/2022 until 12/07/2022 [employer] Phone: Comment on above: One Time for 1 Occurrences starting 11/16 until 12/07/2022 End: 12-07-2022 PREPARE RBC (CROSSMATCH), 1 Units PREPARE RBC (CROSSMATCH), 1 Units Blood Bank STAT Once for 1 Occurrences starting 12/07/2022 until 12/07/2022 [employer] Phone: Comment on above: Once for 1 Occurrences starting 12/07/19 until 12/07/2022 End: 12-08-2022 PREPARE RBC (CROSSMATCH), 1 Units PREPARE RBC (CROSSMATCH), 1 Units Blood Bank Routine Once for 1 Occurrences starting 12/08/2022 until 12/08/2022 [employer] Phone: Comment on above: Once for 1 Occurrences starting 12/08/19 until 12/08/2022 End: 12-09-2022 PREPARE RBC (CROSSMATCH), 1 Units PREPARE RBC (CROSSMATCH), 1 Units Blood Bank Routine Once for 1 Occurrences starting 12/09/2022 until 12/09/2022 [facility] Phone: Comment on above: Once for 1 Occurrences starting 12/09/19 until 12/09/2022 End: 12-08-2022 PREVIOUS SPECIMEN [facility] Phone: Comment on above: Once for 1 Occurrences starting 12/08/19 until 12/08/2022 Immunizations Immunization Date Immunization Notes Care Provider [facility] 08-28-2024 Seasonal trivalent influenza vaccine, adjuvanted, preservative free Pam Stinson APRN-CORPORATE STRATEGIST Work Phone: [facility] 08-28-2024 Immunization, In Clinic,; Translations: [Drug or medicament (substance)] Pam Stinson [employer] EQUIPMENT REPAIRER-CORPORATE STRATEGIST Work Phone: [facility] 08-28-2024 influenza virus vacc ine, unspecified formulation [facility] 04-24-2024 tuberculin skin test ; unspecified formulation [facility] 04-12-2024 tuberculin skin test ; unspecified formulation [facility] 08-10-2023 Influenza Vaccine, Quadrivalent, Adjuvanted Rosario Strong RN [facility] 08-10-2023 influenza virus vacc ine, unspecified formulation Rosario Strong RN [facility] 04-13-2023 tuberculin skin test ; unspecified formulation [facility] 04-06-2023 tuberculin skin test ; unspecified formulation [facility] 08-06-2022 Influenza Vaccine, Quadrivalent, Adjuvanted Rosario Strong RN [facility] 08-27-2021 influenza, high dose seasonal, [...] Hospital 05-16-2020 pneumococcal polysaccharide vaccine, 23 valent [facility] 05-10-2020 tuberculin skin test ; unspecified formulation [facility] 09-14-2019 influenza, injectabl e, quadrivalent, contains preservative Rosario Strong RN [facility] 09-11-2019 influenza, injectabl e, quadrivalent, preservative free Rosario Strong RN [facility] 08-31-2018 influenza, injectabl e, quadrivalent, preservative free Rosario Strong RN [facility] 09-07-2017 influenza, injectabl e, quadrivalent, preservative free Rsoario Strong RN [facility] 07-10-2015 pneumococcal polysaccharide vaccine, 23 valent Rosario Strong RN [facility] 06-29-2015 pneumococcal polysaccharide vaccine, 23 valent Kimberley [facility] Payers Date Payer Category Payer Self-pay 2024 Medicare (Managed Care) [employer]ESH HERNANDEZ [employer] [id number] 2022 Medicare HMO [id number] 2022 Medicare [id number] 2022 Medicaid [id number] 2022 Medicaid [id number] 2017 Unknown [id number] 2011 Medicare [id number] 2011 Medicare [id number] 1959 Medicaid [id number] 1946 Unknown [id number]. 593 1946 Unknown [id number] 2.16.840.1.788121.3.579.2. 647 1946 Unknown [id number] 2.840.1.039422.3.579.2. 175 1946 Unknown [id number] 2.16.840.1.079582.3.579.2. 175 1946 Unknown [id number] 2.16.840.1.600107.3.579.2. 175 1946 Unknown [id number] 2.16.840.1.802742.3.579.2. 175 1946 Unknown [id number] 2.16.840.1.399750.3.579.2. 175 1946 Unknown [id number] 2.16.840.1.976804.3.579.2. 175 1946 Unknown [id number] 2.16.840.1.028027.3.579.2. 175 1946 Unknown [id number] 2.16.840.1.833609.3.579.2. 175 1946 Unknown [id number] 2.16.840.1.865910.3.579.2. 1347 1946 Unknown [id number] 2.16.840.1.728926.3.579.2. 1347 1946 Unknown [id number] 2.16.840.1.953258.3.579.2. 1285 1946 Unknown [id number] 2.16.840.1.137240.3.579.2. 1285 1945 Unknown [id number] 2.16.840.1.831223.3.579.2. 1285 1945 Unknown [id number] 2.16.840.1.289606.3.579.2. 1285 1945 Unknown [id number] 2.16.840.1.604758.3.579.2. 1285 1945 Unknown [id number] 2.16.840.1.364634.3.579.2. 1285 1945 Unknown [id number] 2.16.840.1.866193.3.579.2. 1285 1945 Unknown [id number] 2.16.840.1.364240.3.579.2. 1286 1945 Unknown [id number] 2.16.840.1.946743.3.579.2. 1285 1945 Unknown [id number] 2.16.840.1.075568.3.579.2. 1286 1945 Unknown [id number] 2.16.840.1.149341.3.579.2. 1286 1946 Unknown [id number] 2.16.840.1.404800.3.579.2. 1286 1946 Unknown [id number] 2.16.840.1.554176.3.579.2. 1286 1946 Unknown [id number] 2.16.840.1.124139.3.579.2. 1286 1946 Unknown [id number] 2.16.840.1.361888.3.579.2. 1286 1946 Unknown [id number] 2.16.840.1.396450.3.579.2. 1285 1946 Unknown [id number] 2.16.840.1.262966.3.579.2. 1285 1946 Unknown [id number] 2.16.840.1.430541.3.579.2. 1285 1946 Unknown [id number] 2.16.840.1.503669.3.579.2. 128 1945 Unknown [id number] 2.16.840.1.099339.3.579.2. 1285 1946 Unknown [id number] 2.16.840.1.469477.3.579.2. 1285 1946 Unknown [id number] 2.16.840.1.187846.3.579.2. 1286 1946 Unknown [id number] 2.16.840.1.993660.3.579.2. 1286 1946 Unknown [id number] 2.16.840.1.788647.3.579.2. 1286 1946 Unknown [id number] 2.16.840.1.354441.3.579.2. 1286 1946 Unknown [id number] 2.16.840.1.050527.3.579.2. 1286 Unknown [id number] 2.16.840.1.587026.3.579.2. 1285 1946 Unknown [id number] 2.16.840.1.338055.3.579.2. 1285 1946 Unknown [id number] 2.16.840.1.898171.3.579.2. 1285 1946 Unknown [id number] 2.16.840.1.407835.3.579.2. 1285 1946 Unknown [id number] 2.16.840.1.097820.3.579.2. 1285 1946 Unknown [id number] 2.16.840.1.273261.3.579.2. 1285 1946 Unknown [id number] 2.16840.1.592897.3.579.2. 1285 1946 Unknown [id number] 2.16840.1.097605.3.579.2. 1285 1946 Unknown [id number] 2.840.1.229692.3.579.2. 1285 1946 Unknown [id number] 2.16840.1.522934.3.579.2. 1285 1946 Unknown [id number] 2.16840.1.307079.3.579.2. 1285 1946 Unknown [id number] 2.16840.1.058285.3.579.2. 1285 1946 Unknown [id number] 2.16840.1.483529.3.579.2. 1285 1946 Unknown [id number] 2.16840.1.654956.3.579.2. 1285 1946 Unknown [id number] 2.16840.1.356221.3.579.2. 1285 1946 Unknown [id number] 2.16.840.1.810355.3.579.2. 1285 1946 Unknown [id number] 2.16.840.1.020371.3.579.2. 1285 1946 Unknown [id number] 2.16.840.1.903156.3.579.2. 1285 1946 Unknown [id number] 2.16.840.1.169179.3.579.2. 1285 1946 Unknown [id number] 2.16.840.1.870326.3.579.2. 1285 1946 Unknown [id number] 2.16840.1.319667.3.579.2. 1285 1946 Unknown [id number] 2.840.1.637507.3.579.2. 1285 1946 Unknown [id number] 2.16840.1.938368.3.579.2. 1285 1946 Unknown [id number] 2.16840.1.867367.3.579.2. 1285 1946 Unknown [id number] 2.840.1.565091.3.579.2. 1258 1946 Unknown [id number] 2.840.1.216087.3.579.2. 1258 1946 Unknown [id number] 2.16840.1.716739.3.579.2. 1258 1946 Unknown [id number] 2.16840.1.506454.3.579.2. 1258 1946 Unknown [id number] 2.16.840.1.245002.3.579.2. 1285 1946 Unknown [id number] 2.16840.1.164693.3.579.2. 1285 1946 Unknown [id number] 2.16.840.1.257722.3.579.2. 1286 1946 Unknown [id number] 2.16.840.1.938362.3.579.2. 1286 1946 Unknown [id number] 2.16.840.1.657525.3.579.2. 1286 1946 Unknown [id number] 2.16.840.1.382922.3.579.2. 1286 1946 Unknown [id number] 2.16.840.1.764198.3.579.2. 1286 1946 Unknown [id number] 2.16.840.1.097476.3.579.2. 1286 1946 Unknown [id number] 2.16.840.1.772228.3.579.2. 1286 1946 Unknown [id number] 2.16.840.1.849985.3.579.2. 1286 1946 Unknown [id number] 2.16.840.1.033293.3.579.2. 1286 1946 Unknown [id number] 2.16.840.1.468332.3.579.2. 1286 Unknown [id number] Unknown [id number] 2.16840.1.908451.3.579.2. 531 Social History Date Type Detail Facility Start: 10-15-2014 End: 10-05-2022 Tobacco smoking status MAIS Never smoker [facility] Start: 10-15-2014 End: 07-13-2025 Alcohol intake Current non-drinker of alcohol (finding) [facility] Work Phone: Start: 10-02-2014 Alcohol Comment occaisional [facility] Work Phone: Start: 1945 Sex Assigned At Not on file [facility] Work Phone: Start: 11-14-2022 End: 12-07-2022 Exposure to SARS-CoV-2 (event) Not sure [facility] Start: 10-05-2022 End: 06-06-2025 Tobacco use and exposure Smokeless tobacco non-user [facility] Start: 10-28-2024 End: 11-09-2024 History of Social function [facility] Start: 10-28-2024 End: 11-09-2024 [facility] Orthocone[facility] Has the [employer], oil, or water company threatened to shut off services in your home in past 12Mo No [facility] Do you belong to any clubs or organizations such as jainism groups, unions, fraternal [...] [facility] Start: 06-20-2015 Sex Female (finding) [facility] Start: 03-21-2020 Gender identity Identifies as [...] Start: 1945 Sex Assigned At Female [facility] Start: 06-06-2025 End: 07-10-2025 Alcoholic beverage intake Ex-drinker (finding) [facility] NEGATED: Highlighted rowStart: 01-18-2025 Tobacco smoking status [facility] Unknown if ever smoked [facility] NEGATED: Highlighted rowStart: 01-18-2025 Alcohol intake Alcohol Use Details [facility] Medical Equipment Procedure Code Equipment Code Equipment Original Text Equipment Identifier Dates Valve Aor Evolut Fx 26mm - [id number] - [id number] Start: 08-17-2023 [id number], [id number], [id number] Start: 10-11-2020 End: 03-02-2024 Cement Bn Trauma saritha V+ Polymethylmethacrylate Gls Inj Pwdr - [id number] Start: 07-13-2025 Nail Im 400mm 10 mm 125d Cnn Tfn-Adv Lat Rlf Cut Ti Niobium - [id number] Start: 07-13-2025 Blade Im Nl Au 7 5mm 10.35mm Tfn-Adv Hlcl Fem Prox Ti Niobium - [id number] Start: 07-13-2025 Screw Bn 44mm 5m m Lck X25 Strl Lf Im Nl - [id number] Start: 07-13-2025 Screw Lck Lght G rn 40mm 5mm X25 Fem Ti Niobium Al Strl - [id number] Start: 07-13-2025 Goals Date Patient Goal Desired Activity /State Personal health goal Comment on above: Formatting of this n ote might be different from the original. Evaluation of progress towards goal: Patient and daughter are agreeable to [facility] for RN and PT providing patient has [...] antibiotics at home or copay costs for senior care care. Patient and daughter will need to return home with a replaced PICC line and figure out transportation to and from infusion center. They state [facility] is not an option for weekend transport and during the week they get booked early. Personal health goal Comment on above: Formatting of this n ote might be different from the original. Evaluation of progress towards goal: Patient and daughter agree she will need skilled care as a result of the fracture she has. Formatting of this n ote might be different from the original. Evaluation of progress towards goal: Patient agrees she will need skilled care as a result of the fracture she has. Personal health goal Comment on above: Formatting of this n ote might be different from the original. Patient would only like to discharge to [facility], if not patient would like to return home. Functional Status Date Assessment Result Facility 07-12-2025 Total score [AUDIT-C] 0 07/12/20 25 2:23 PM EDT Ursula Schuster RN [facility] Mental Status Date Assessment Result Facility [facility] Clinical Notes 03-20-2021 to 07-27-2025 Telephone Encounter - Cinda Browning RN - 07/27/2025 4:24 PM EDTTelephone Encounter - Cinda Browning RN - 07/27/2025 4:24 PM EDTTelephone Encounter - Lashanda Ruiz - 07/25/2025 9:27 AM EDT Note Date & Type Note Facility 07-27-2025 Miscellaneous Notes Patient was discharged from the hospital to a SNF, [facility]. Called SNF on 07/26/25 and left a for a return call to get updates but none provided at this time. documented in this encounter [facility] 07-27-2025 Telephone encounter Note Patient was discharged from the hospital to a SNF, [facility]. Called SNF on 07/26/25 and left a VM for a return call to get updates but none provided at this time. [facility] Work Phone: 07-25-2025 Miscellaneous Notes Miter Saw Operator called patient and spoke with daughter and she states per her mother the patient will call when ready to schedule appointment. Office number provided documented in this encounter [facility] 07-25-2025 Telephone encounter Note Miter Saw Operator called patient and spoke with daughter and she states per her mother the patient will call when ready to schedule appointment. Office number provided [facility] 07-24-2025 History of Present illness Narrative Patient Name: Cuca Dee Date of : 1945 Date of Service: 07/24/2025 Facility: [facility] Type of Visit: Skilled Visit Subjective Cuca Dee is a 80 y.o. female seen today at senior care facility for skilled visit. Cuca is in therapy. She is getting stronger. She is wondering when she can go home. She isn't back to where she was prior to to hospitalization. She has no new problems. Appetite is ok. Pain is adequately controlled. Allergies: Patient has no known allergies. Code Status: FULL CODE BP 137/65 Pulse 78 Temp 36.3 C (97.3 F) Resp 18 Wt 84 kg (185 lb 3.2 oz) LMP (LMP Unknown) SpO2 94% BMI 30.82 kg/m Physical Exam Vitals reviewed. Constitutional: General: She is awake. She is not in acute distress. Appearance: She is not ill-appearing. Comments: In bed in room HENT: Head: Normocephalic. Cardiovascular: Rate and Rhythm: Normal rate and regular rhythm. Heart sounds: Murmur heard. Pulmonary: Effort: Pulmonary effort is normal. No respiratory distress. Breath sounds: Normal breath sounds. No wheezing, rhonchi or rales. Abdominal: General: Bowel sounds are normal. There is no distension. Palpations: Abdomen is soft. Tenderness: There is no abdominal tenderness. There is no guarding. Hernia: No hernia is present. Musculoskeletal: Cervical back: Neck supple. Right hip: Tenderness and bony tenderness present. Decreased range of motion. Right lower leg: No edema. Left lower leg: No edema. Neurological: Mental Status: She is alert. Psychiatric: Attention and Perception: Attention normal. Mood and Affect: Mood and affect normal. Speech: Speech normal. Behavior: Behavior normal. Behavior is cooperative. Thought Content: Thought content normal. Assessment/Plan Summary / Assessment / Plan 1. Chronic diastolic congestive heart failure (CMS-HCC) 2. Pathological fracture of right hip with routine healing, unspecified pathological cause, subsequent encounter 3. Closed fracture of right hip, sequela 4. Closed nondisplaced fracture of lesser trochanter of right femur with delayed healing 5. Other abnormalities of gait and mobility 6. Hypertensive heart and chronic kidney disease with heart failure and stage 1 through stage 4 chronic kidney disease, or unspecified chronic kidney disease (CMS-HCC) Continue therapy to reach maximum improvement. She has not reach her pre-injury level of functioning. Medically stable. Continue medications as dir. All medications reviewed and are medically necessary. ELECTRONICALLY SIGNED BY: Sacha Rosales DO documented in this encounter [facility] 07-20-2025 History of Present illness Narrative Patient Name: Cuca Dee Date of : 1945 Date of Service: 07/20/2025 Facility: [facility] Type of Visit: Skilled Visit Subjective Cuca Dee is a 80 y.o. female seen today at senior care facility for skilled visit. Cuca presents back to [facility] from [facility] where she was admitted for a pathologic fracture of her right hip. She had an intermedullary nail placed. She returned here with only tylenol for pain. She rates her pain a 5 on a scale of 1-10. She would like something stronger. She has no new problems to report. She is going to resume therapy. Allergies: Patient has no known allergies. Code Status: FULL CODE BP 97/67 Pulse 86 Temp 36.9 C (98.5 F) Resp 18 Wt 84.8 kg (187 lb) LMP (LMP Unknown) SpO2 91% BMI 31.12 kg/m Physical Exam Vitals reviewed. Exam conducted with a reach lift truck driver present (Ludwin Joy MS3). Constitutional: General: She is awake. She is not in acute distress. Appearance: She is not ill-appearing. Comments: In bed in room HENT: Head: Normocephalic. Cardiovascular: Rate and Rhythm: Normal rate and regular rhythm. Heart sounds: Murmur heard. Pulmonary: Effort: Pulmonary effort is normal. No respiratory distress. Breath sounds: Normal breath sounds. No wheezing, rhonchi or rales. Abdominal: General: Bowel sounds are normal. There is no distension. Palpations: Abdomen is soft. Tenderness: There is no abdominal tenderness. There is no guarding. Hernia: No hernia is present. Musculoskeletal: Cervical back: Neck supple. Right hip: Tenderness and bony tenderness present. Decreased range of motion. Right lower leg: No edema. Left lower leg: No edema. Neurological: Mental Status: She is alert. Psychiatric: Attention and Perception: Attention normal. Mood and Affect: Mood and affect normal. Speech: Speech normal. Behavior: Behavior normal. Behavior is cooperative. Thought Content: Thought content normal. Assessment/Plan Summary / Assessment / Plan 1. Pathological fracture of right hip with routine healing, unspecified pathological cause, subsequent encounter 2. Closed nondisplaced fracture of pelvis with routine healing, unspecified part of pelvis, subsequent encounter 3. Mixed diabetic hyperlipidemia associated with type 2 diabetes mellitus ([facility]) 4. Hypertensive heart and chronic kidney disease with heart failure and stage 1 through stage 4 chronic kidney disease, or unspecified chronic kidney disease ([facility]) She only rates her pain a 5 on scale 1-10 but had recent surgery for pathological fracture. Will try oxycodone 5mg Q6hrs prn. It is a condition that will require short-term opioids to control pain. Patient was in agreement. Continue therapy. F/U with ortho as directed. Continue other orders as before. ELECTRONICALLY SIGNED BY: Sacha Rosales DO documented in this encounter [facility] 07-10-2025 History of Present illness Narrative Patient Name: Cuca Dee Date of : 1945 Date of Service: 07/10/2025 Facility: [facility] Type of Visit: Skilled Visit Subjective Cuca Dee is a 80 y.o. female seen today at senior care facility for skilled visit. She is participating in therapy She is having a runny nose and congestion and would like loratadine. There is no fever. Her appetite is good. No nausea or vomiting. No voiding issues. She has an orthopedic appointment this afternoon. Allergies: Patient has no known allergies. Code Status: FULL CODE BP 106/71 Pulse 70 Temp 36.6 C (97.8 F) Resp 16 Wt 76.3 kg (168 lb 3.2 oz) LMP (LMP Unknown) SpO2 96% BMI 27.99 kg/m Physical Exam Vitals reviewed. Exam conducted with a reach lift truck driver present (Ludwin Joy MS3). Constitutional: General: She is awake. She is not in acute distress. Appearance: She is not ill-appearing. Comments: In bed in room HENT: Head: Normocephalic. Nose: Rhinorrhea present. Rhinorrhea is clear. Cardiovascular: Rate and Rhythm: Normal rate and regular rhythm. Heart sounds: Murmur heard. Pulmonary: Effort: Pulmonary effort is normal. No respiratory distress. Breath sounds: Normal breath sounds. No wheezing, rhonchi or rales. Abdominal: General: Bowel sounds are normal. There is no distension. Palpations: Abdomen is soft. Tenderness: There is no abdominal tenderness. There is no guarding. Hernia: No hernia is present. Musculoskeletal: Cervical back: Neck supple. Right lower leg: No edema. Left lower leg: No edema. Neurological: General: No focal deficit present. Mental Status: She is alert and oriented to person, place, and time. Psychiatric: Attention and Perception: Attention normal. Mood and Affect: Mood and affect normal. Speech: Speech normal. Behavior: Behavior normal. Behavior is cooperative. Thought Content: Thought content normal. Assessment/Plan Summary / Assessment / Plan 1. Hypertensive heart and chronic kidney disease with heart failure and stage 1 through stage 4 chronic kidney disease, or unspecified chronic kidney disease ([facility]) 2. Chronic obstructive pulmonary disease, unspecified COPD type ([facility]) 3. Lumbar back pain with radiculopathy affecting left lower extremity 4. Spinal stenosis of lumbar region with neurogenic claudication 5. Closed fracture of right hip, sequela 6. Rhinitis, unspecified type Continue therapy to reach maximum improvement. Will add loratadine 10mg daily. Continue other orders as before. ELECTRONICALLY SIGNED BY: Sacha Rosales DO documented in this encounter [facility] 07-10-2025 History of Present illness Narrative Images from the original note were not included. Orthopedic Office note: NAME: Cuca Dee : 1945 (EST PT) RT HIP PAIN - NO KNOWN INJURY - XRAY RT HIP TODAY EPIC 07/10/25 XRAY PELVIS EPIC 06/06/25 XRAY LUMBAR SPINE 05/11/[address] [facility] [address] LUMBAR SPINE 05/12/[address] [facility] [address] RT HIP 05/14/25 [facility] PRES[facility] TODAY. SORENESS LATERAL HIP. DENIES RADIATION DOWN LEG. DENIES N/T. DOES NOT WAKE AT HS. RESIDENT AT [facility]. Physical Exam General Appearance: Patient appears uncomfortable but in no distress at rest. Respiratory: No acute distress Musculoskeletal: Gait: Unable to stand on right leg, not ambulated in the office Ankle: Intact dorsiflexion and plantar flexion Knee: Strength 4/5 with pain noted at the hip Hip: Significant pain with internal and external rotation, tender over the greater trochanteric hip bursa, pain to anterior and posterior aspects of hip joint, no obvious shortening or external rotation Lower back: Diffuse pain Others: Distal pulses present 2+ posterior tibialis, compartments are soft, straight leg raise positive for pain at the hip Skin: Multiple healing abrasions to the front sandoval without signs of infection, 1+ edema. Neurological: Normal, pt reports some chronic neuropathy unchanged. Orders Placed This Encounter Procedures XR hip right 2 or 3 views Reason for exam:: fx Procedures Results - Imaging: - X-ray of the right hip (07/10/2025): Concerning for an intertrochanteric hip fracture with lucency noted today that was not present previously. Further changes in her femoral neck head region concerning for possible lytic or cystic process. - CT scan of the abdomen and pelvis (07/02/2025): Showed an intertrochanteric hip fracture and a large adnexal mass in her pelvis. - CT scan of the abdomen and pelvis (06/11/2025): Showed significant progression of osseous metastatic disease of the spine. ICD-10-CM 1. Acute right hip pain M25.551 2. Closed avulsion fracture of right hip with routine healing, subsequent encounter S72.001D XR hip right 2 or 3 views 3. Intertrochanteric fracture of right hip, closed, initial encounter ([facility]) S72.141A Assessment & Plan Right hip pain X-rays performed today in the office are concerning for an intertrochanteric hip fracture with lucency noted today that was not present previously. There are also further changes in her femoral neck head region concerning for a possible lytic or cystic process. Multiple visits to the ER since her last visit with imaging studies were reviewed. A CT scan of her abdomen and pelvis from 07/02/2025 showed an intertrochanteric hip fracture and a large adnexal mass in her pelvis. 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 She has been treated palliatively with oral chemotherapy medication through oncology but appears to have run out of her insurance coverage and was without medication for a few months. Her daughter at bedside was unaware of any possibility of metastatic process, but this was discussed as the chief concern given her previous pathologic fracture without significant trauma or injury and no prior CT evidence of intertrochanteric fracture. Avulsion of less troch thought related to Osteopenia and muscle/ tendon firing given prior pelvic fx. She has not been weightbearing since our last appt and recently placed in a skilled facility for rehab due to a UTI and ckd with weakness from last admission, her overal condition and symptoms may be more related to the progression of cancerous metastasis. Diagnostic plan: Recommended direct transport to the ER for further evaluation due to the inability to ambulate well with her hip. A phone call was made to the ER, and nurse practitioner Jazmine was notified of the suspicion of a metastatic lesion in her hip contributing to her hip fracture, likely requiring treatment at a tertiary facility pending orthopedic consult. Follow-up confirmed that the patient will be admitted with MRI after orthopedic consultation. Imaging studies from her ER visits were reviewed, including her initial orthopedic consult on 05/14/2025 and office follow-up on 06/06/2025, which did not show intertrochanteric hip fracture or concerns of metastasis. Metastatic disease was noted on her spine with previous imaging, and neurosurgery is in the process of ordering a repeat MRI of her lumbar spine and thoracic spine for further evaluation but this has not been done yet since visit on 05/22/25 with [facility] neurosurgery to my knowledge with asking her daughter at bedside. Treatment plan: Her health was further complicated by an admission for sepsis earlier in the year. Her daughter is aware of the need for more urgent evaluation and treatment of her symptoms and agreed to transport her to the ER for urgent workup and evaluation. Both patient and daughter expressed gratitude and had no further concerns or questions. Questions answered in laymen terms at the bedside. The diagnosis, home exercise plan and any ongoing restrictions/ recommendations reviewed. If unable to be reached in office, I recommend evaluation at nearest Emergency Room if any symptoms worsened or new symptoms develop for requiring urgent evaluation. Visit was preformed using [employer]-pilot plant operator speech recognition. documented in this encounter [facility] 07-06-2025 History of Present illness Narrative Patient Name: Cuca Dee Date of : 1945 Date of Service: 07/06/2025 Facility: [facility] Type of Visit: Admission H&P Subjective Cuca Dee is a 80 y.o. female seen today at senior care facility for admission H&P. Cuca presents today from [facility] where she is admitted for intractable nausea vomiting due to urinary tract infection. She is feeling much better now. She does not have anymore nausea or vomiting. She is currently taking her antibiotic and tolerating it well. She is weak. She is unable to do her ADLs for herself. She was living at her home where her daughter lives with her and helped with her caregiving. She was ambulating with a walker and wheelchair at home. She would like to go back home eventually. She denies pain. Her appetite is good. She sees a concrete pile driver operator and safe deposit attendant for her heart failure and kidney failure issues. Past Medical History: Diagnosis Date Anemia Arthritis Asthma very mild, no inhaler use Cataract Dental disease Depression Diabetes [place] Diabetes mellitus type 2, controlled [place] Encephalitis Foot fracture, left GERD (gastroesophageal reflux disease) Heart murmur HLD (hyperlipidemia) Hypertension Incontinence Injury of back Insulin dependent diabetes mellitus Kidney failure STAGE 4 Lumbar spondylolysis Murmur Obesity CHELSEA (obstructive sleep apnea) no machine Peptic ulceration Peripheral vascular disease Shortness of breath [place] TIA (transient ischemic attack) Upper respiratory infection UTI (urinary tract infection) Visual impairment Wears dentures Past Surgical History: Procedure Laterality Date BREAST BIOPSY Right 03/01/2023 ULT BIOPSY CATARACT EXTRACTION SECTION SECTION 03/14/1974 EGD N/A 10/17/2019 Performed by Sarai Bell DO at [facility]-PERCUTANEOUS CORONARY INTERVENTION HYSTEROSCOPY DILATION CURETTAGE MYOSURE N/A 01/29/2021 Performed by Jv Briones MD at [facility] INJECTION BLOCK EPIDURAL CAUDAL STEROID N/A 08/14/2022 Performed by Arnulfo Gonzalez MD at [facility] INJECTION BLOCK EPIDURAL CAUDAL STEROID N/A 06/06/2021 Performed by Arnulfo Gonzalez MD at [facility] INJECTION BLOCK EPIDURAL CAUDAL STEROID N/A 04/25/2021 Performed by Arnulfo Gonzalez MD at [facility] INJECTION CAUDAL EPIDURAL WITH CATHETER, STEROID N/A 05/03/2020 Performed by Arnulfo Gonzalez MD at [facility] INJECTION CAUDAL EPIDURAL WITH CATHETER, STEROID N/A 11/24/2019 Performed by Arnulfo Gonzalez MD at [facility] INJECTION CAUDAL EPIDURAL WITH CATHETER, STEROID N/A 04/21/2019 Performed by Arnulfo Gonzalez MD at [facility] INJECTION MEDIAL BRANCH NERVE BLOCK Bilateral L 4/5, 5/1 Bilateral 08/18/2019 Performed by Arnulfo Gonzalez MD at [facility] INJECTION MEDIAL BRANCH NERVE BLOCK Bilateral L 4/5, 5/1 Bilateral 06/23/2019 Performed by Arnulfo Gonzalez MD at [facility] STEROID EPI 1 WITH SEDATION Right L 4, 5 NR Right 03/17/2019 Performed by Arnulfo Gonzalez MD at [facility] STEROID EPI 1 WITH SEDATION: right L45 nroot Right 08/15/2018 Performed by Arnulfo Gonzalez MD at [facility] LEFT L4, AND 5 NERVE ROOT INJECTION 2 OF 2 Left 07/22/2018 Performed by Arnulfo Gonzalez MD at [facility] LEFT L4, AND L5 NERVE ROOT 1 OF 2 Left 07/04/2018 Performed by Arnulfo Gonzalez MD at [facility] SHUNT INSERTION TONSILLECTOMY AGE 4 Transcutaneous aortic valve replacement/Transfemoral/Kwan N/A 08/17/2023 Performed by Chava Norris MD at [facility] CARDIAC CATH LABS Valvuloplasty aortic N/A 06/03/2023 Performed by Chava Norris MD at [facility] CARDIAC CATH LABS Family History Problem Relation Age of Onset Diabetes Mother Hypertension Father Coronary artery disease Father No Known Problems Brother Breast cancer Neg Hx Allergies: Patient has no known allergies. Code Status: FULL CODE The following portions of the patient's history were reviewed and updated as appropriate: allergies, current medications, past family history, past medical history, past social history, past surgical history, problem list, and medication reconciliation was completed including current medication and post discharge medication. Review of Systems Objective LMP (LMP Unknown) Physical Exam Vitals reviewed. Constitutional: General: She is awake. She is not in acute distress. Appearance: She is not ill-appearing. Comments: In bed in room HENT: Head: Normocephalic. Cardiovascular: Rate and Rhythm: Normal rate and regular rhythm. Heart sounds: Murmur heard. Pulmonary: Effort: Pulmonary effort is normal. No respiratory distress. Breath sounds: Normal breath sounds. No wheezing, rhonchi or rales. Abdominal: General: Bowel sounds are normal. There is no distension. Palpations: Abdomen is soft. Tenderness: There is no abdominal tenderness. There is no guarding. Hernia: No hernia is present. Musculoskeletal: Cervical back: Neck supple. Right lower leg: No edema. Left lower leg: No edema. Skin: Findings: No lesion. Neurological: General: No focal deficit present. Mental Status: She is alert and oriented to person, place, and time. Psychiatric: Attention and Perception: Attention normal. Mood and Affect: Mood and affect normal. Speech: Speech normal. Behavior: Behavior normal. Behavior is cooperative. Thought Content: Thought content normal. Assessment/Plan Summary / Assessment / Plan 1. Chronic diastolic congestive heart failure ([facility]) 2. Hypertensive heart and chronic kidney disease with heart failure and stage 1 through stage 4 chronic kidney disease, or unspecified chronic kidney disease ([facility]) 3. Intractable nausea and vomiting 4. Urinary tract infection without hematuria, site unspecified Admit to [facility]. Therapy evaluation with OT and PT. Continue medications from the hospital. Full code. Good rehab potential. Plan to go home when able to take care of self and do ADLs. ELECTRONICALLY SIGNED BY: Sacha Rosales DO documented in this encounter [facility] 07-05-2025 Nurse Note Patient discharged to snf with [facility] and all belongings and medications. Patient denies any complaints of chest pain/tightness, dizziness, nausea, vomiting. Daughter notified of departure. Attempted to call snf to notifiy of patient's departure-no answer. Crf faxed and report called. [facility] 07-05-2025 Nurse Note Patient discharged to snf with [facility] and all belongings and medications. Patient denies any complaints of chest pain/tightness, dizziness, nausea, vomiting. Daughter notified of departure. Attempted to call snf to notifiy of patient's departure-no answer. Crf faxed and report called. Patient noted to have pulled out IV and telemetry. Miter Saw Operator completed adl's. Patient refused to replace another IV and/ lunch. Jazmine Do CNP advised and see new order. documented in this encounter [facility] 07-05-2025 Plan of care note Problem: Pain Goal: Patient goal is pain score less than 4, able to rest, and participant in treatment plan as appropriate Description: INTERVENTIONS: 1. Encourage patient or legal benefits representative to report early pain and ask [...] per policy 9. Teach patient or legal benefits representative interventions for comforting Outcome: Completed Note: Evaluation of progress towards goal: Patient discharged to SNF Problem: Safety Goal: Patient will be injury free during hospitalization Description: INTERVENTIONS: 1. Assess patient's risk for falls and implement fall prevention plan of care per policy 2. Provide and maintain a safe environment 3. Proper use of double Identifiers 4. Medication administration using the 5 rights 5. Hand hygiene 6. Specimens are labeled at the bedside 7. Instruct patient/ patient benefits representative about use of safety devices 8. Include patient/ patient benefits representative in decisions related to safety Outcome: Completed Note: Evaluation of progress towards goal: Patient discharged to SNF Problem: Infection Goal: Absence of infection during [...] hygiene technique. 7. Identify and instruct patient/patient benefits representative in use of appropriate isolation precautions for identified infection/symptoms. 8. Provide and discuss with patient/patient benefits representative on educational MDRO sheet. 9. Encourage and monitor nutritional status daily and consult joist setter if indicated. 10. Implement neutropenic guidelines as needed. Outcome: Completed Note: Evaluation of progress towards goal: Patient discharged to SNF Problem: Knowledge Deficit Goal: Patient/patient benefits representative demonstrates understanding of disease process, treatment plan, medications, and discharge instructions Description: INTERVENTIONS 1. Complete learning assessment and assess knowledge base 2. Provide teaching at level of understanding 3. Provide teaching via preferred learning method(s) Outcome: Completed Note: Evaluation of progress towards goal: Patient discharged to SNF Problem: Discharge Planning Goal: Discharge to post-acute [...] for needed discharge transportation as appropriate Outcome: Completed Note: Evaluation of progress towards goal: Patient discharged to SNF Problem: Inadequate Airway Clearance Goal: Patient will [...] breathe; encourage incentive spirometer if indicated Outcome: Completed Note: Evaluation of progress towards goal: Patient discharged to SNF Problem: Inadequate Breathing Pattern Goal: Patient will achieve/maintain normal respiratory rate/effort Description: Patient's goal is: INTERVENTIONS 1. Assess and monitor respiratory rate, effort, breathing pattern, and oxygenation 2. Monitor patient for restlessness, anxiety, air hunger 3. Assess physical activity tolerance 4. Assess tobacco history; ask, advise, and refer as appropriate 5. Collaborate with interdisciplinary team and initiate plans/interventions as needed Outcome: Completed Note: Evaluation of progress towards goal: Patient discharged to SNF Goal: Patient will maintain effective ventilation Description: [...] administer medications/treatments 9. Monitor lab/diagnostic results Outcome: Completed Note: Evaluation of progress towards goal: Patient discharged to [facility] Problem: Anxiety Goal: Anxiety is at manageable [...] Collaborate with ancillary departments 14. Include patient/patient benefits representative in decisions related to anxiety Outcome: Completed Note: Evaluation of progress towards goal: Patient discharged to SNF Problem: Activity Intolerance/Impaired Mobility Goal: Mobility/activity is [...] patient 9. Ensure adequate rest/sleep time Outcome: Completed Note: Evaluation of progress towards goal: Patient discharged to SNF Problem: Inadequate Coping Goal: Demonstrates and verbalizes [...] care 6. Collaborate with pastoral/spiritual care, social media content specialist, mental health counselor as needed. 7. Instruct patient on diversional activities such as physical activity, distraction, and deep breathing exercises to assist with coping 8. Involve patient's benefits representative in care Outcome: Completed Note: Evaluation of progress towards goal: Patient discharged to SNF Problem: Glucose Imbalance Goal: Clinical indication of glucose balance is achieved Description: Patient's goal is: INTERVENTIONS 1. Monitor blood glucose levels as ordered 2. Administer medications as ordered 3. Notify physician of ineffective treatment plan Outcome: Completed Note: Evaluation of progress towards goal: Patient discharged to SNF Goal: Patient's discharge needs are met Description: Patient's goal is: INTERVENTIONS 1. Assess patient for self-management skills 2. Encourage participation in diabetes management 3. Identify potential discharge barriers on admission and throughout hospital stay 4. Involve patient/S.O. in discharge planning process 5. Communicate referral to patient experience coordinator as appropriate 6. Communicate referral to joist setter as appropriate 7. Collaborate with case management/social media content specialist for discharge needs Outcome: Completed Note: Evaluation of progress towards goal: Patient discharged to SNF Problem: Potential for Compromised Skin Integrity Goal: [...] initiate plans and interventions as needed Outcome: Completed Note: Evaluation of progress towards goal: Patient discharged to SNF Goal: Patient's nutritional intake is adequate Description: [...] supplement as ordered 13. Collaborate with clinical joist setter 14. Include patient/ patient's benefits representative in decisions related to nutrition Outcome: Completed Note: Evaluation of progress towards goal: Patient discharged to SNF Problem: Urinary Incontinence Goal: Perineal skin integrity [...] initiate plans and interventions as needed Outcome: Completed Note: Evaluation of progress towards goal: Patient discharged to SNF Problem: Moderate - High Risk Fall Score Description: Patel Fall Score of =/> 25 or indicated by [facility] Assessment Goal: Patient should be free from fall Description: Interventions: 1. Mamou to environment 2. Hourly rounds addressing the [...] non-skid footwear 11. Teach patient and patient benefits representative to maintain environment for safety and [...] (cane, walker) within reach 19. Request patient benefits representative bring adaptive equipment/mobility aids from home or obtain and provide as needed 20. Consult pharmacy regarding effects of med's affecting mobility, cognition, and alternatives 21. Obtain physician order for PT if risk factors associated with mobility are present 22. Obtain physician order for OT as appropriate 23. Utilize diversional activities 24. Educate patient and patient benefits representative how to maintain a safe environment during visitation times (notify nurse prior to leaving bedside) 25. Consider appropriateness of medical or non-medical front desk specialist 26. Set up voiding schedule as appropriate (every 2 hours) Outcome: Completed Note: Evaluation of progress towards goal: Patient discharged to SNF Problem: Readmission Risk Reduction Goal: Readmission Risk Assessment Description: Utilize readmission risk score in the development of discharge plan INTERVENTIONS: 1. Discuss patient's risk of readmission at multidisciplinary discharge transition rounds. 2. Comprehensive assessment of patient's risk of readmission (functional, psychosocial, cognitive). 3. Collaborate with patient / caregiver to identify needs. 4. Handoff to next level of care provider (date night caregiver, PCP, home care). 5. Complete follow up phone call within 72 hours. Outcome: Completed Note: Evaluation of progress towards goal: Patient discharged to SNF Goal: Discharge Medication Plan Description: Develop a [...] confirm that prescriptions have been filled. Outcome: Completed Note: Evaluation of progress towards goal: Patient discharged to SNF Goal: Follow-Up Appointments Description: Schedule patient-centric follow-up appointments prior to discharge INTERVENTIONS: 1. Identify recommended / appropriate timeframes for follow-up. 2. Discuss transportation needs and scheduling preferences with patient. 3. Verify that all follow-up appointments are scheduled prior to discharge. Outcome: Completed Note: Evaluation of progress towards goal: Patient discharged to SNF Goal: Discharge Medication Reconciliation Description: Review discharge medication reconciliation for accuracy INTERVENTIONS: 1. Include last dose date / time on the discharge medication list. 2. Utilize available resources to identify and address issues. 3. Consider use of a Discharge Time-Out or Discharge Final Check. 4. Refer to homecare, as appropriate, for home medication review. Outcome: Completed Note: Evaluation of progress towards goal: Patient discharged to SNF Goal: Discharge Instructions Description: Provide accurate and complete discharge instructions, taking into account health literacy of the patient INTERVENTIONS: 1. Assess patient's learning needs including health literacy. 2. Provide disease-specific education as appropriate. 3. Consider use of teach-back to verify patient / caregiver understanding. 4. Verify understanding of discharge instructions. 5. Consider use of a Discharge Time-Out or Discharge Final-Check. Outcome: Completed Note: Evaluation of progress towards goal: Patient discharged to SNF [facility] 07-05-2025 Miscellaneous Notes Problem: Pain Goal: Patient goal is pain score less than 4, able to rest, and participant in treatment plan as appropriate Description: INTERVENTIONS: 1. Encourage patient or legal benefits representative to report early pain and ask [...] per policy 9. Teach patient or legal benefits representative interventions for comforting Outcome: Completed Note: Evaluation of progress towards goal: Patient discharged to SNF Problem: Safety Goal: Patient will be injury free during hospitalization Description: INTERVENTIONS: 1. Assess patient's risk for falls and implement fall prevention plan of care per policy 2. Provide and maintain a safe environment 3. Proper use of double Identifiers 4. Medication administration using the 5 rights 5. Hand hygiene 6. Specimens are labeled at the bedside 7. Instruct patient/ patient benefits representative about use of safety devices 8. Include patient/ patient benefits representative in decisions related to safety Outcome: Completed Note: Evaluation of progress towards goal: Patient discharged to SNF Problem: Infection Goal: Absence of infection during [...] hygiene technique. 7. Identify and instruct patient/patient benefits representative in use of appropriate isolation precautions for identified infection/symptoms. 8. Provide and discuss with patient/patient benefits representative on educational MDRO sheet. 9. Encourage and monitor nutritional status daily and consult joist setter if indicated. 10. Implement neutropenic guidelines as needed. Outcome: Completed Note: Evaluation of progress towards goal: Patient discharged to SNF Problem: Knowledge Deficit Goal: Patient/patient benefits representative demonstrates understanding of disease process, treatment plan, medications, and discharge instructions Description: INTERVENTIONS 1. Complete learning assessment and assess knowledge base 2. Provide teaching at level of understanding 3. Provide teaching via preferred learning method(s) Outcome: Completed Note: Evaluation of progress towards goal: Patient discharged to SNF Problem: Discharge Planning Goal: Discharge to post-acute [...] for needed discharge transportation as appropriate Outcome: Completed Note: Evaluation of progress towards goal: Patient discharged to SNF Problem: Inadequate Airway Clearance Goal: Patient will [...] breathe; encourage incentive spirometer if indicated Outcome: Completed Note: Evaluation of progress towards goal: Patient discharged to SNF Problem: Inadequate Breathing Pattern Goal: Patient will achieve/maintain normal respiratory rate/effort Description: Patient's goal is: INTERVENTIONS 1. Assess and monitor respiratory rate, effort, breathing pattern, and oxygenation 2. Monitor patient for restlessness, anxiety, air hunger 3. Assess physical activity tolerance 4. Assess tobacco history; ask, advise, and refer as appropriate 5. Collaborate with interdisciplinary team and initiate plans/interventions as needed Outcome: Completed Note: Evaluation of progress towards goal: Patient discharged to SNF Goal: Patient will maintain effective ventilation Description: [...] administer medications/treatments 9. Monitor lab/diagnostic results Outcome: Completed Note: Evaluation of progress towards goal: Patient discharged to SNF Problem: Anxiety Goal: Anxiety is at manageable [...] Collaborate with ancillary departments 14. Include patient/patient benefits representative in decisions related to anxiety Outcome: Completed Note: Evaluation of progress towards goal: Patient discharged to SNF Problem: Activity Intolerance/Impaired Mobility Goal: Mobility/activity is [...] patient 9. Ensure adequate rest/sleep time Outcome: Completed Note: Evaluation of progress towards goal: Patient discharged to SNF Problem: Inadequate Coping Goal: Demonstrates and verbalizes [...] care 6. Collaborate with pastoral/spiritual care, social media content specialist, mental health counselor as needed. 7. Instruct patient on diversional activities such as physical activity, distraction, and deep breathing exercises to assist with coping 8. Involve patient's benefits representative in care Outcome: Completed Note: Evaluation of progress towards goal: Patient discharged to SNF Problem: Glucose Imbalance Goal: Clinical indication of glucose balance is achieved Description: Patient's goal is: INTERVENTIONS 1. Monitor blood glucose levels as ordered 2. Administer medications as ordered 3. Notify physician of ineffective treatment plan Outcome: Completed Note: Evaluation of progress towards goal: Patient discharged to SNF Goal: Patient's discharge needs are met Description: Patient's goal is: INTERVENTIONS 1. Assess patient for self-management skills 2. Encourage participation in diabetes management 3. Identify potential discharge barriers on admission and throughout hospital stay 4. Involve patient/S.O. in discharge planning process 5. Communicate referral to patient experience coordinator as appropriate 6. Communicate referral to joist setter as appropriate 7. Collaborate with case management/social media content specialist for discharge needs Outcome: Completed Note: Evaluation of progress towards goal: Patient discharged to SNF Problem: Potential for Compromised Skin Integrity Goal: [...] initiate plans and interventions as needed Outcome: Completed Note: Evaluation of progress towards goal: Patient discharged to SNF Goal: Patient's nutritional intake is adequate Description: [...] supplement as ordered 13. Collaborate with clinical joist setter 14. Include patient/ patient's benefits representative in decisions related to nutrition Outcome: Completed Note: Evaluation of progress towards goal: Patient discharged to SNF Problem: Urinary Incontinence Goal: Perineal skin integrity [...] initiate plans and interventions as needed Outcome: Completed Note: Evaluation of progress towards goal: Patient discharged to SNF Problem: Moderate - High Risk Fall Score Description: Patel Fall Score of =/> 25 or indicated by [facility] Assessment Goal: Patient should be free from fall Description: Interventions: 1. Mamou to environment 2. Hourly rounds addressing the [...] non-skid footwear 11. Teach patient and patient benefits representative to maintain environment for safety and [...] (cane, walker) within reach 19. Request patient benefits representative bring adaptive equipment/mobility aids from home or obtain and provide as needed 20. Consult pharmacy regarding effects of med's affecting mobility, cognition, and alternatives 21. Obtain physician order for PT if risk factors associated with mobility are present 22. Obtain physician order for OT as appropriate 23. Utilize diversional activities 24. Educate patient and patient benefits representative how to maintain a safe environment during visitation times (notify nurse prior to leaving bedside) 25. Consider appropriateness of medical or non-medical front desk specialist 26. Set up voiding schedule as appropriate (every 2 hours) Outcome: Completed Note: Evaluation of progress towards goal: Patient discharged to SNF Problem: Readmission Risk Reduction Goal: Readmission Risk Assessment Description: Utilize readmission risk score in the development of discharge plan INTERVENTIONS: 1. Discuss patient's risk of readmission at multidisciplinary discharge transition rounds. 2. Comprehensive assessment of patient's risk of readmission (functional, psychosocial, cognitive). 3. Collaborate with patient / caregiver to identify needs. 4. Handoff to next level of care provider (date night caregiver, PCP, home care). 5. Complete follow up phone call within 72 hours. Outcome: Completed Note: Evaluation of progress towards goal: Patient discharged to SNF Goal: Discharge Medication Plan Description: Develop a [...] confirm that prescriptions have been filled. Outcome: Completed Note: Evaluation of progress towards goal: Patient discharged to SNF Goal: Follow-Up Appointments Description: Schedule patient-centric follow-up appointments prior to discharge INTERVENTIONS: 1. Identify recommended / appropriate timeframes for follow-up. 2. Discuss transportation needs and scheduling preferences with patient. 3. Verify that all follow-up appointments are scheduled prior to discharge. Outcome: Completed Note: Evaluation of progress towards goal: Patient discharged to SNF Goal: Discharge Medication Reconciliation Description: Review discharge medication reconciliation for accuracy INTERVENTIONS: 1. Include last dose date / time on the discharge medication list. 2. Utilize available resources to identify and address issues. 3. Consider use of a Discharge Time-Out or Discharge Final Check. 4. Refer to homecare, as appropriate, for home medication review. Outcome: Completed Note: Evaluation of progress towards goal: Patient discharged to SNF Goal: Discharge Instructions Description: Provide accurate and complete discharge instructions, taking into account health literacy of the patient INTERVENTIONS: 1. Assess patient's learning needs including health literacy. 2. Provide disease-specific education as appropriate. 3. Consider use of teach-back to verify patient / caregiver understanding. 4. Verify understanding of discharge instructions. 5. Consider use of a Discharge Time-Out or Discharge Final-Check. Outcome: Completed Note: Evaluation of progress towards goal: Patient discharged to SNF DISCHARGE PLANNING NOTE BLS transport with [facility] confirmed via PTN to [facility] 8 at 1800 07/05/25 1028 Services Requested Patient expects to be discharged to: SNF Discharge Disposition SNF SNF Name [facility] [address] [place] [address] extension [phone] Fax SNF Accepted? Yes Transportation Arranged Ambulance Patient choice offered Yes List Provided Yes [facility] List Provided Custodial Facility DC Planning Complete Discharge Milestones Yes DISCHARGE PLANNING NOTE Discharge plan: Discharge orders noted. Transportation arranged for 2pm pick up attendant. [facility] updated on transport time. [facility] and 7000 sent via [facility]. - Bethany Lucero RN 07/05/25 10:29 AM Problem: Pain Goal: Patient goal is pain score less than 4, able to rest, and participant in treatment plan as appropriate Description: INTERVENTIONS: 1. Encourage patient or legal benefits representative to report early pain and ask [...] per policy 9. Teach patient or legal benefits representative interventions for comforting Outcome: Progressing Note: [...] at the bedside 7. Instruct patient/ patient benefits representative about use of safety devices 8. Include patient/ patient benefits representative in decisions related to safety Outcome: Progressing Note: Evaluation of progress towards goal: Pt's risk for falls assessed and fall prevention implemented as needed, safe environment provided and maintained, hand hygiene completed. Problem: Infection Goal: Absence of infection during [...] hygiene technique. 7. Identify and instruct patient/patient benefits representative in use of appropriate isolation precautions for identified infection/symptoms. 8. Provide and discuss with patient/patient benefits representative on educational MDRO sheet. 9. Encourage and monitor nutritional status daily and consult joist setter if indicated. 10. Implement neutropenic guidelines as needed. Outcome: Progressing Note: Evaluation of progress towards goal: Patient VS WNL, remains afebrile for shift. Continue to monitor. Problem: Knowledge Deficit Goal: Patient/patient benefits representative demonstrates understanding of disease process, treatment plan, medications, and discharge instructions Description: INTERVENTIONS 1. Complete learning assessment and assess knowledge base 2. Provide teaching at level of understanding 3. Provide teaching via preferred learning method(s) Outcome: Progressing Note: Evaluation of progress towards goal: POC discussed with patient. Questions answered PRN. Problem: Discharge Planning Goal: Discharge to post-acute [...] Evaluation of progress towards goal: Continue to assess for when appropriate. Problem: Inadequate Airway Clearance Goal: Patient will [...] Evaluation of progress towards goal: Continue to assess for when appropriate. Problem: Inadequate Breathing Pattern Goal: Patient will [...] Evaluation of progress towards goal: Continue to assess for when appropriate. Goal: Patient will maintain effective ventilation Description: [...] Evaluation of progress towards goal: Continue to assess for when appropriate. Problem: Anxiety Goal: Anxiety is at manageable [...] Collaborate with ancillary departments 14. Include patient/patient benefits representative in decisions related to anxiety Outcome: Progressing Note: Evaluation of progress towards goal: Patient is independent with turning and repositioning. Problem: Activity Intolerance/Impaired Mobility Goal: Mobility/activity is [...] care 6. Collaborate with pastoral/spiritual care, social media content specialist, mental health counselor as needed. 7. Instruct patient on diversional activities such as physical activity, distraction, and deep breathing exercises to assist with coping 8. Involve patient's benefits representative in care Outcome: Progressing Note: Evaluation of progress towards goal: Patient is able to verbalize their feeling or concerns. Problem: Glucose Imbalance Goal: Clinical indication of glucose balance is achieved Description: Patient's goal is: INTERVENTIONS 1. Monitor blood glucose levels as ordered 2. Administer medications as ordered 3. Notify physician of ineffective treatment plan Outcome: Progressing Note: Evaluation of progress towards goal: Patient is being checked bedside ACHS and given insulin according to sliding scale coverage. Goal: Patient's discharge needs are met Description: Patient's goal is: INTERVENTIONS 1. Assess patient for self-management skills 2. Encourage participation in diabetes management 3. Identify potential discharge barriers on admission and throughout hospital stay 4. Involve patient/S.O. in discharge planning process 5. Communicate referral to patient experience coordinator as appropriate 6. Communicate referral to joist setter as appropriate 7. Collaborate with case management/social media content specialist for discharge needs Outcome: Progressing Note: Evaluation of progress towards goal: Continue to assess for when appropriate. Problem: Potential for Compromised Skin Integrity Goal: [...] Note: Evaluation of progress towards goal: Patient is independent with turning and repositioning. Goal: Patient's nutritional intake is adequate Description: [...] supplement as ordered 13. Collaborate with clinical joist setter 14. Include patient/ patient's benefits representative in decisions related to nutrition Outcome: [...] protectant applied as needed, labs monitored. Problem: Moderate - High Risk Fall Score Description: Patel Fall Score of =/> 25 or indicated by [facility] Assessment Goal: Patient should be free from fall Description: Interventions: 1. Mamou to environment 2. Hourly rounds addressing the [...] non-skid footwear 11. Teach patient and patient benefits representative to maintain environment for safety and [...] (cane, walker) within reach 19. Request patient benefits representative bring adaptive equipment/mobility aids from home or obtain and provide as needed 20. Consult pharmacy regarding effects of med's affecting mobility, cognition, and alternatives 21. Obtain physician order for PT if risk factors associated with mobility are present 22. Obtain physician order for OT as appropriate 23. Utilize diversional activities 24. Educate patient and patient benefits representative how to maintain a safe environment during visitation times (notify nurse prior to leaving bedside) 25. Consider appropriateness of medical or non-medical front desk specialist 26. Set up voiding schedule as appropriate (every 2 hours) Outcome: Progressing Note: Evaluation of progress towards goal: Pt remains free from falls or accidental injury during stay. Fall prevention measures in place. Hourly rounding per RN and maintained. Problem: Readmission Risk Reduction Goal: Readmission Risk Assessment Description: Utilize readmission risk score in the development of discharge plan INTERVENTIONS: 1. Discuss patient's risk of readmission at multidisciplinary discharge transition rounds. 2. Comprehensive assessment of patient's risk of readmission (functional, psychosocial, cognitive). 3. Collaborate with patient / caregiver to identify needs. 4. Handoff to next level of care provider (date night caregiver, PCP, home care). 5. Complete follow up phone call within 72 hours. Outcome: Progressing Note: Evaluation of progress towards goal: Continue to assess for when appropriate. Goal: Discharge Medication Plan Description: Develop a [...] Evaluation of progress towards goal: Continue to assess for when appropriate. Goal: Follow-Up Appointments Description: Schedule patient-centric follow-up appointments prior to discharge INTERVENTIONS: 1. Identify recommended / appropriate timeframes for follow-up. 2. Discuss transportation needs and scheduling preferences with patient. 3. Verify that all follow-up appointments are scheduled prior to discharge. Outcome: Progressing Note: Evaluation of progress towards goal: Continue to assess for when appropriate. Goal: Discharge Medication Reconciliation Description: Review discharge [...] Evaluation of progress towards goal: Continue to assess for when appropriate. Goal: Discharge Instructions Description: Provide accurate and [...] Evaluation of progress towards goal: Continue to assess for when appropriate. DISCHARGE PLANNING NOTE Prior Auth approved for admission to : Lee Gambino P# ; F# Approval # [id number] Valid for Dates: 07/04/25 - 07/10/25 DISCHARGE PLANNING NOTE Prior auth submitted to: [employer] Via: [employer] On behalf of : Lee Gambino P# ; F# REF# [id number] Images from the original note were not included. Ongoing Assessment for Discharge Needs Reviewed discharge milestones and patient needs related to discharge plan. Current estimated discharge date of Jul 05, 2025 has been reviewed by treatment team. Ongoing Assessment for Discharge Needs Flowsheet Row Most Recent Value Services Requested Patient expects to be discharged to: SNF Does the patient wish to have family/friend/caregiver involved in their discharge planning? No, the patient does not wish to have family/friend/caregiver involved in their discharge planning Discharge Disposition SNF SNF Name [facility] [phone] Fax SNF Accepted? -- [referral sent] Does the patient need discharge transportation arranged? Yes Transportation Arranged Ambulance DC Planning Complete Discharge Milestones Yes Respiratory Indicator Does the patient currently have home respiratory equipment? No Will the patient need home respiratory equipment upon discharge? No, it is expected that patient will NOT discharge home with respiratory DME needs Discharge plan: [facility] SNF vs Home with [facility] (resume services) [facility] to perform on-site this morning. CN called and left a voicemail for admissions to confirm if onsite was completed/if patient can be accepted. [place] pending bed availability. Once accepting facility established, will start insurance auth. - Bethany Lucero RN 07/04/25 12:28 PM Update: CN spoke with [facility] admissions, they have accepted patient, ok to start precert. Cn called patient's daughter Ileana, agreeable with plan of care. [facility] tasked to start insurance auth for [facility]. - Bethany Lucero RN 07/04/25 1:29 PM Physical Therapy Reason For Patient Refusal (comment required): (P) Pain (Pt c/o back pain and requesting to defer therapy until she has her SNF consult today. Will check back later with pt) Occupational Therapy OT Type of Visit: Patient refusal Pt had just finished eating breakfast upon arrival. Pt c/o low back pain and it was suggested by therapist she transfer to the chair to see if relieves the pain. Pt began getting upset about not wanting to leave the bed and do therapy this morning. Pt stating she wants to talk to the prison rep. When they get here and then do therapy. OT encouraged sitting at EOB for simple ADLs, however, pt again declined this. OT to defer treatment at this time and will attempt again at a later time. Problem: Medication Description: If medication is necessary, use low-risk medication that does not interfere with what matters to the older adult patient, mobility, or mentation across settings of care. Goal: Patient will be screened for high-risk medications once per stay Description: Interventions: 1. Pharmacist to perform medication review to screen for high-risk medications 2. Pharmacist to identify high-risk medications in the Plan of Care note 3. Pharmacist to make recommendations for follow-up in the Plan of Care note, if warranted Outcome: Completed Note: Medications individually and in combination may interfere with What Matters, Mentation, and safe Mobility because of the increased risk of confusion, delirium, unsteadiness and falls. Profile review indicates this patients has active orders for no high risk medications. Chart review also shows no change in renal function. Problem: Pain Goal: Patient goal is pain score less than 4, able to rest, and participant in treatment plan as appropriate Description: INTERVENTIONS: 1. Encourage patient or legal benefits representative to report early pain and ask [...] per policy 9. Teach patient or legal benefits representative interventions for comforting Note: Evaluation of progress towards goal: current medication regimen effective. Patient denies pain. Problem: Safety Goal: Patient will be injury free during hospitalization Description: INTERVENTIONS: 1. Assess patient's risk for falls and implement fall prevention plan of care per policy 2. Provide and maintain a safe environment 3. Proper use of double Identifiers 4. Medication administration using the 5 rights 5. Hand hygiene 6. Specimens are labeled at the bedside 7. Instruct patient/ patient benefits representative about use of safety devices 8. Include patient/ patient benefits representative in decisions related to safety Note: Evaluation of progress towards goal: safety precautions in place. Problem: Pain Goal: Patient goal is pain score less than 4, able to rest, and participant in treatment plan as appropriate Description: INTERVENTIONS: 1. Encourage patient or legal benefits representative to report early pain and ask [...] per policy 9. Teach patient or legal benefits representative interventions for comforting Outcome: Progressing Note: [...] at the bedside 7. Instruct patient/ patient benefits representative about use of safety devices 8. Include patient/ patient benefits representative in decisions related to safety Outcome: Progressing Note: Evaluation of progress towards goal: Pt's risk for falls assessed and fall prevention implemented as needed, safe environment provided and maintained, hand hygiene completed. Problem: Infection Goal: Absence of infection during [...] hygiene technique. 7. Identify and instruct patient/patient benefits representative in use of appropriate isolation precautions for identified infection/symptoms. 8. Provide and discuss with patient/patient benefits representative on educational MDRO sheet. 9. Encourage and monitor nutritional status daily and consult joist setter if indicated. 10. Implement neutropenic guidelines as needed. Outcome: Progressing Note: Evaluation of progress towards goal: Patient VS WNL, remains afebrile for shift. Continue to monitor. Problem: Knowledge Deficit Goal: Patient/patient benefits representative demonstrates understanding of disease process, treatment plan, medications, and discharge instructions Description: INTERVENTIONS 1. Complete learning assessment and assess knowledge base 2. Provide teaching at level of understanding 3. Provide teaching via preferred learning method(s) Outcome: Progressing Note: Evaluation of progress towards goal: POC discussed with patient. Questions answered PRN. Problem: Discharge Planning Goal: Discharge to post-acute [...] Evaluation of progress towards goal: Continue to assess for when appropriate. Problem: Inadequate Airway Clearance Goal: Patient will [...] Evaluation of progress towards goal: Continue to assess for when appropriate. Problem: Inadequate Breathing Pattern Goal: Patient will [...] Evaluation of progress towards goal: Continue to assess for when appropriate. Goal: Patient will maintain effective ventilation Description: [...] Evaluation of progress towards goal: Continue to assess for when appropriate. Problem: Anxiety Goal: Anxiety is at manageable [...] Collaborate with ancillary departments 14. Include patient/patient benefits representative in decisions related to anxiety Outcome: Progressing Note: Evaluation of progress towards goal: Patient is able to verbalize their feeling or concerns. Problem: Activity Intolerance/Impaired Mobility Goal: Mobility/activity is [...] care 6. Collaborate with pastoral/spiritual care, social media content specialist, mental health counselor as needed. 7. Instruct patient on diversional activities such as physical activity, distraction, and deep breathing exercises to assist with coping 8. Involve patient's benefits representative in care Outcome: Progressing Note: Evaluation of progress towards goal: Continue to assess for when appropriate. Problem: Glucose Imbalance Goal: Clinical indication of glucose balance is achieved Description: Patient's goal is: INTERVENTIONS 1. Monitor blood glucose levels as ordered 2. Administer medications as ordered 3. Notify physician of ineffective treatment plan Outcome: Progressing Note: Evaluation of progress towards goal: Patient is being checked bedside ACHS and given insulin according to sliding scale coverage. Goal: Patient's discharge needs are met Description: Patient's goal is: INTERVENTIONS 1. Assess patient for self-management skills 2. Encourage participation in diabetes management 3. Identify potential discharge barriers on admission and throughout hospital stay 4. Involve patient/S.O. in discharge planning process 5. Communicate referral to patient experience coordinator as appropriate 6. Communicate referral to joist setter as appropriate 7. Collaborate with case management/social media content specialist for discharge needs Outcome: Progressing Note: Evaluation of progress towards goal: Continue to assess for when appropriate. Problem: Potential for Compromised Skin Integrity Goal: [...] Note: Evaluation of progress towards goal: Patient is independent with turning and repositioning. Goal: Patient's nutritional intake is adequate Description: [...] supplement as ordered 13. Collaborate with clinical joist setter 14. Include patient/ patient's benefits representative in decisions related to nutrition Outcome: [...] protectant applied as needed, labs monitored. Problem: Moderate - High Risk Fall Score Description: Patel Fall Score of =/> 25 or indicated by [facility] Assessment Goal: Patient should be free from fall Description: Interventions: 1. Mamou to environment 2. Hourly rounds addressing the [...] non-skid footwear 11. Teach patient and patient benefits representative to maintain environment for safety and [...] (cane, walker) within reach 19. Request patient benefits representative bring adaptive equipment/mobility aids from home or obtain and provide as needed 20. Consult pharmacy regarding effects of med's affecting mobility, cognition, and alternatives 21. Obtain physician order for PT if risk factors associated with mobility are present 22. Obtain physician order for OT as appropriate 23. Utilize diversional activities 24. Educate patient and patient benefits representative how to maintain a safe environment during visitation times (notify nurse prior to leaving bedside) 25. Consider appropriateness of medical or non-medical front desk specialist 26. Set up voiding schedule as appropriate (every 2 hours) Outcome: Progressing Note: Evaluation of progress towards goal: Pt remains free from falls or accidental injury during stay. Fall prevention measures in place. Hourly rounding per RN and maintained. Problem: Readmission Risk Reduction Goal: Readmission Risk Assessment Description: Utilize readmission risk score in the development of discharge plan INTERVENTIONS: 1. Discuss patient's risk of readmission at multidisciplinary discharge transition rounds. 2. Comprehensive assessment of patient's risk of readmission (functional, psychosocial, cognitive). 3. Collaborate with patient / caregiver to identify needs. 4. Handoff to next level of care provider (date night caregiver, PCP, home care). 5. Complete follow up phone call within 72 hours. Outcome: Progressing Note: Evaluation of progress towards goal: Continue to assess for when appropriate. Goal: Discharge Medication Plan Description: Develop a [...] Evaluation of progress towards goal: Continue to assess for when appropriate. Goal: Follow-Up Appointments Description: Schedule patient-centric follow-up appointments prior to discharge INTERVENTIONS: 1. Identify recommended / appropriate timeframes for follow-up. 2. Discuss transportation needs and scheduling preferences with patient. 3. Verify that all follow-up appointments are scheduled prior to discharge. Outcome: Progressing Note: Evaluation of progress towards goal: Continue to assess for when appropriate. Goal: Discharge Medication Reconciliation Description: Review discharge [...] Evaluation of progress towards goal: Continue to assess for when appropriate. Goal: Discharge Instructions Description: Provide accurate and [...] Evaluation of progress towards goal: Continue to assess for when appropriate. Occupational Therapy Evaluation (co-eval with PT for patient safety) Discharge Recommendations for Safe Patient Transition OT Discharge Disposition Recommendation: Post acute - moderate OT Post Acute Moderate Rehab Needs: Recommend moderate intensity rehab, Tolerate 1-2 hrs of therapy 3-5 days/wk, Subacute or chronic functional impairment Current Impairments Informing Therapy Recommendation: Ambulation status/safety, Fall risk, ADL status, Endurance level Patient Liaison Support for-: Mobility Deficits, ADL Deficits Therapy Plan Need for skilled Occupational Therapy to address deficits in ADL independence and functional mobility due to a status decline resulting from weakness. Past Medical History: Diagnosis Date Anemia Arthritis Asthma very mild, no inhaler use Cataract Dental disease Depression [place] [place] Diabetes mellitus type 2, controlled [place] Encephalitis Foot fracture, left GERD (gastroesophageal reflux disease) Heart murmur HLD (hyperlipidemia) Hypertension Incontinence Injury of back Insulin dependent diabetes mellitus Kidney failure STAGE 4 Lumbar spondylolysis Murmur Obesity CHELSEA (obstructive sleep apnea) no machine Peptic ulceration Peripheral vascular disease Shortness of breath [place] 02/27/2024 TIA (transient ischemic attack) Upper respiratory infection UTI (urinary tract infection) Visual impairment Wears dentures Past Surgical History: Procedure Laterality Date BREAST BIOPSY Right 03/01/2023 ULT BIOPSY CATARACT EXTRACTION SECTION SECTION 03/14/1974 EGD N/A 10/17/2019 Performed by Sarai Bell DO at [facility] H-PERCUTANEOUS CORONARY INTERVENTION HYSTEROSCOPY DILATION CURETTAGE MYOSURE N/A 01/29/2021 Performed by Jv Briones MD at [facility] INJECTION BLOCK EPIDURAL CAUDAL STEROID N/A 08/14/2022 Performed by Arnulfo Gonzalez MD at [facility] INJECTION BLOCK EPIDURAL CAUDAL STEROID N/A 06/06/2021 Performed by Arnulfo Gonzalez MD at [facility] INJECTION BLOCK EPIDURAL CAUDAL STEROID N/A 04/25/2021 Performed by Arnulfo Gonzalez MD at [facility] INJECTION CAUDAL EPIDURAL WITH CATHETER, STEROID N/A 05/03/2020 Performed by Arnulfo Gonzalez MD at [facility] INJECTION CAUDAL EPIDURAL WITH CATHETER, STEROID N/A 11/24/2019 Performed by Arnulfo Gonzalez MD at [facility] INJECTION CAUDAL EPIDURAL WITH CATHETER, STEROID N/A 04/21/2019 Performed by Arnulfo Gonzalez MD at [facility] INJECTION MEDIAL BRANCH NERVE BLOCK Bilateral L 4/5, 5/1 Bilateral 08/18/2019 Performed by Arnulfo Gonzalez MD at [facility] IN[facility]CTION MEDIAL BRANCH NERVE BLOCK Bilateral L 4/5, 5/1 Bilateral 06/23/2019 Performed by Arnulfo Gonzalez MD at [facility] IN[facility]CTION STEROID EPI 1 WITH SEDATION Right L 4, 5 NR Right 03/17/2019 Performed by Arnulfo Gonzalez MD at [facility] IN[facility] STEROID EPI 1 WITH SEDATION: right L45 nroot Right 08/15/2018 Performed by Arnulfo Gonzalez MD at [facility] LEFT L4, AND 5 NERVE ROOT INJECTION 2 OF 2 Left 07/22/2018 Performed by Arnulfo Gonzalez MD at [facility] LEFT L4, AND L5 NERVE ROOT 1 OF 2 Left 07/04/2018 Performed by Arnulfo Gonzalez MD at [facility] SHUNT INSERTION TONSILLECTOMY AGE 4 Transcutaneous aortic valve replacement/Transfemoral/Kwan N/A 08/17/2023 Performed by Chava Norris MD at [facility] CARDIAC CATH LABS Valvuloplasty aortic N/A 06/03/2023 Performed by Chava Norris MD at [facility] CARDIAC CATH LABS 6 Clicks: Daily Activity Putting on and taking off regular lower body clothing?: A lot Bathing (including washing, rinsing, drying)?: A lot Toileting, which includes using toilet, bedpan or urinal?: A lot Putting on and taking off regular upper body clothing?: A little Taking care of personal grooming such as brushing teeth?: A little Eating meals?: None Scoring Daily Activity Raw Score: 16 CMS G Code Modifier: CK' OT Treatment/Interventions: Functional transfer training, UE strengthening/ROM, ADL retraining, Balance OT Frequency: Other (comment) (2-4x week) OT Duration: 10 days Assessment Patient Assessment Therapy Problem List: Decreased ADL status, Decreased balance, Decreased endurance, Decreased high-level ADLs, Decreased mobility, Decreased safe judgement during ADL, Decreased self-care trans, Decreased UE strength Patient Response to Treatment: Tolerated evaluation without adverse reaction Mood/Affect: Appropriate for circumstances Rehab Prognosis: Good, With continued OT status post acute discharge Visit RN Communication: Yes Medical Record Reviewed: Yes OT Type of Visit: Evaluation (co-eval with PT for patient safety) Precautions Activity: up as macario, ok to see per Cesilia PIERRE Equipment: RW, nonskid socks, gait belt Weight Bearing Status: FWB Telemetry/Stave Grader: Yes Oxygen Used: Room air Other: Fall risk Pain Assessment Pain Assessment: No/denies pain Home Living Type of Home: House Home Layout: One level, Ramped entrance Stairs to Enter: (Ramp) Hand Rails: None Stairs in Home: 0 Hand Rails in Home: None Bathroom Shower/Tub: Tub/shower unit Bathroom Toilet: Raised Bathroom Equipment: Grab bars in shower, Hand-held shower, Shower chair, Grab bars around toilet Bathroom Accessibility: Accessible via wheelchair Home Equipment: Wheelchair-manual, Rolling walker, Hospital bed, Other (Comment) (rollator, purewick, looking to get a lift chair) Prior Function Lives With: Son, Daughter Receives Help From: Family, Home health Level of Mobility: Independent with ADLs and functional transfers or gait Homemaking Assistance: Needs assistance Other: Pt reports that prior to a few weeks ago she was ind with mobility using a walker and her ADLs. Since fracturing her hip in April, pt has had a decline in her mobility. Pt states she is living with her daugther and son, where her daughter assists with all stand pivot transfers and all ADLs. Pt notes she is able to wash where she can reach for bathing and that she can propel herself in her w/c in the home. Daughter completes all house hold tasks and provides transportation. States groceries get delivered. ADL / IADL Grooming Assistance: Min assist Bathing/Showering Assistance: Max assist Toilet/Commode Assistance: Max assist UE Dressing Assistance: Min assist LE Dressing Assistance: Max assist Footwear Assistance: Mod assist Other: Pt's ability to complete ADLs is based on professional observation and clinical judgement, based on her ability to complete bed mobility, balance, strength and transfer. Home Management - IADL Other: Pt's ability to complete ADLs is based on professional observation and clinical judgement, based on her ability to complete bed mobility, balance, strength and transfer. Hearing / Speech / Vision Hearing: Within Functional Limits Speech: Within Functional Limits Current Vision: Wears glasses all the time Visual History: Cataracts, Surgical intervention Cognition Orientation Level: Oriented to person, Oriented to place, Oriented to month, Disoriented to situation Sensation Overall Sensation Status: Within Functional Limits Bed Mobility Supine to Sit: Min assist, Right, Verbal cues Other: vc given for sequencing with HOB elevated and cue to reach for bed rail. Min assist given to complete sit with upper body. Pt then able to slowly scoot herself to EOB. Transfers Sit to Stand: Min assist Stand to Sit: Min assist Other: cues given to push from the bed to stand up to walker. Pt taking increased time to due to not feeling well per patient. Notes she began getting dizzy from sitting at EOB and her back was hurting her. Gait Gait Assistance: Min assist (+2) Assistive Device: Rolling walker Gait Distance: 2' x2 from bed to chair back to bed to assess safety for her stand pivots that she normally completes at home. Pt moving slow and is quite unsteady on her feet. Pt noted that she is moving worse than she typically does. Limiting Factors to Gait: Fatigue, Weakness, Decreased safety Balance Sitting Balance: Static: Good Sitting Balance: Dynamic: Poor Standing Balance: Static: Poor Standing Balance: Dynamic: Poor Other: pt able to sit at EOB without LOB and no UE support. RUE Assessment: Exceptions to WFL RUE Strength RUE Overall Strength: Within Functional Limits - able to perform ADL tasks with strength (4-/5 grossly) LUE Assessment: Exceptions to WFL LUE Strength LUE Overall Strength: Within Functional Limits - able to perform ADL tasks with strength (4-/5 grossly) Activity Tolerance Endurance: Tolerates <30 minutes activity WITHOUT vital sign changes Plan Occupational Therapy Care Plan Occupational Therapy Care Plan (Active) Template: OT - Occupational Therapy Problem: Other (Customize) Dates: Start: 07/03/25 Disciplines: OT Goal: Improve Dates: Start: 07/03/25 Expected End: 07/12/25 Description: Goal Description: Pt will complete simple upper body ADLs with Min assist to increase independence. Disciplines: OT Problem: Standing Balance Dates: Start: 07/03/25 Disciplines: OT Goal: Improve balance to fair Dates: Start: 07/03/25 Expected End: 07/12/25 Description: During standing ADLs and functional transfers to increase safety. Disciplines: OT Problem: Strength Dates: Start: 07/03/25 Disciplines: OT Goal: Improve strength Dates: Start: 07/03/25 Expected End: 07/12/25 Description: Of extremity/ location: B UEs To facilitate: increased ability to complete ADLs with transfers. Disciplines: OT Problem: Transfers Dates: Start: 07/03/25 Disciplines: OT Goal: Patient will perform transfers with Contact Guard Dates: Start: 07/03/25 Expected End: 07/12/25 Description: Goal Description: +1 with least restrictive device to increase independence. Disciplines: OT Occupational Therapy Care Plan (Resolved) There are no resolved problems. Principal Problem: Intractable nausea and vomiting Active Problems: 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 [place] diastolic congestive [place] [place] Weakness Iron deficiency anemia Physical Therapy Evaluation (co-eval w/ OT for increased pt safety d/t impaired mobility) Discharge Recommendations for Safe Patient Transition PT Discharge Disposition Recommendation: Post acute - moderate PT Post Acute Moderate Rehab Needs: Recommend moderate intensity rehab, Tolerate 1-2 hrs of therapy 3-5 days/wk, Subacute or chronic functional impairment Current Impairments Informing Therapy Recommendation: Ambulation status/safety, Fall risk, ADL status, Endurance level Patient Liaison Support for-: Mobility Deficits, ADL Deficits Therapy Plan Need for skilled Physical Therapy to address deficits in functional mobility due to a status decline resulting from generalized weakness/decreased activity macario d/t intractable n/v. Past Medical History: Diagnosis Date Anemia Arthritis Asthma very mild, no inhaler use Cataract Dental disease Depression Diabetes [place] [place] Diabetes mellitus type 2, controlled [place] [place] Encephalitis Foot fracture, left GERD (gastroesophageal reflux disease) Heart murmur HLD (hyperlipidemia) Hypertension Incontinence Injury of back Insulin dependent diabetes mellitus Kidney failure STAGE 4 Lumbar spondylolysis Murmur Obesity CHELSEA (obstructive sleep apnea) no machine Peptic ulceration Peripheral vascular disease Shortness of breath [place] [place] 02/27/2024 TIA (transient ischemic attack) Upper respiratory infection UTI (urinary tract infection) Visual impairment Wears dentures Past Surgical History: Procedure Laterality Date BREAST BIOPSY Right 03/01/2023 ULT BIOPSY CATARACT EXTRACTION SECTION SECTION 03/14/1974 EGD N/A 10/17/2019 Performed by Sarai Bell DO at [facility] H-PERCUTANEOUS CORONARY INTERVENTION HYSTEROSCOPY DILATION CURETTAGE MYOSURE N/A 01/29/2021 Performed by Jv Briones MD at [facility] INJECTION BLOCK EPIDURAL CAUDAL STEROID N/A 08/14/2022 Performed by Arnulfo Gonzalez MD at [facility] INJECTION BLOCK EPIDURAL CAUDAL STEROID N/A 06/06/2021 Performed by Arnulfo Gonzalez MD at [facility] INJECTION BLOCK EPIDURAL CAUDAL STEROID N/A 04/25/2021 Performed by Arnulfo Gonzalez MD at [facility] INJECTION CAUDAL EPIDURAL WITH CATHETER, STEROID N/A 05/03/2020 Performed by Arnulfo Gonzalez MD at [facility] INJECTION CAUDAL EPIDURAL WITH CATHETER, STEROID N/A 11/24/2019 Performed by Arnulfo Gonzalez MD at [facility] INJECTION CAUDAL EPIDURAL WITH CATHETER, STEROID N/A 04/21/2019 Performed by Arnulfo Gonzalez MD at [facility] INJECTION MEDIAL BRANCH NERVE BLOCK Bilateral L 4/5, 5/1 Bilateral 08/18/2019 Performed by Arnulfo Gonzalez MD at [facility] INJECTION MEDIAL BRANCH NERVE BLOCK Bilateral L 4/5, 5/1 Bilateral 06/23/2019 Performed by Arnulfo Gonzalez MD at [facility] STEROID EPI 1 WITH SEDATION Right L 4, 5 NR Right 03/17/2019 Performed by Arnulfo Gonzalez MD at [facility] INJECTION STEROID EPI 1 WITH SEDATION: right L45 nroot Right 08/15/2018 Performed by Arnulfo Gonzalez MD at [facility] LEFT L4, AND 5 NERVE ROOT INJECTION 2 OF 2 Left 07/22/2018 Performed by Arnulfo Gonzalez MD at [facility] LEFT L4, AND L5 NERVE ROOT 1 OF 2 Left 07/04/2018 Performed by Arnulfo Gonzalez MD at [facility] SHUNT INSERTION TONSILLECTOMY AGE 4 Transcutaneous aortic valve replacement/Transfemoral/Kwan N/A 08/17/2023 Performed by Chava Norris MD at [facility] CARDIAC CATH LABS Valvuloplasty aortic N/A 06/03/2023 Performed by Chava Norris MD at [facility] CARDIAC CATH LABS 6 Clicks: Basic Mobility Turning from your back to your side while in a flat bed without using bed rails?: A little Moving from lying on your back to sitting on side of flat bed without using bed rails?: A lot Moving to and from bed to a chair (including w/c)?: A lot Standing up from a chair using your arms (e.g. w/c or bedside chair)?: A little To walk in hospital room?: Total Climbing 3-5 steps with a railing?: Total Scoring 6 Clicks: Basic Mobility Raw Score: 12 CMS G Code Modifier: CL PT Treatment/Interventions: ADL retraining, Functional transfer training, LE strengthening/ROM, Endurance training, Patient/family training, Equipment eval/education, Balance, Bed mobility, Gait training, Coordination activities, Functional activities, Neuromuscular reeducation PT Frequency: Other (comment) (4-6x/week) PT Duration: 10 days Assessment Patient Assessment Therapy Problem List: Decreased ADL status, Decreased balance, Decreased endurance, Decreased high-level ADLs, Decreased mobility, Decreased gross motor, Decreased safe judgement during ADL, Decreased self-care trans, Decreased LE ROM, Decreased LE strength Patient Response to Treatment: Tolerated evaluation without adverse reaction Mood/Affect: Appropriate for circumstances Rehab Prognosis: Good, With continued PT status post acute discharge Visit RN Communication: Yes Medical Record Reviewed: Yes PT Type of Visit: Evaluation (co-eval w/ OT for increased pt safety d/t impaired mobility) Precautions Activity: up as macario, ok to see per Cesilia PIERRE Equipment: RW, nonskid socks, gait belt Weight Bearing Status: FWB Telemetry/Stave Grader: Yes Oxygen Used: Room air Other: Fall risk Pain Assessment Pain Assessment: No/denies pain Home Living Type of Home: House Home Layout: One level, Ramped entrance Stairs to Enter: Ramp Hand Rails: None Stairs in Home: 0 Hand Rails in Home: None Bathroom Shower/Tub: Tub/shower unit Bathroom Toilet: Raised Bathroom Equipment: Grab bars in shower, Hand-held shower, Shower chair, Grab bars around toilet Bathroom Accessibility: Accessible via wheelchair Home Equipment: Wheelchair-manual, Rolling walker, Hospital bed, Other (Comment) (Rollator, Purewick; wants/looking into a lift chair) Prior Function Lives With: Son, Daughter Receives Help From: Family, Home health (home therapy) Level of Mobility: Independent with ADLs and functional transfers or gait Homemaking Assistance: Needs assistance Other: Pt reports prior to approx 2-3 weeks ago she was ind w/ ADLs and functional mobility w/ use of walker. However, pt also had hip fracture (no surgical intervention) in April so her mobility has been limited. Notes currently her daughter A w/ stand pivot transfers and all ADLs. Pt notes she will A and wash what she can reach. Notes she can propel herself in w/c in house. Notes daughter does all household tasks, including meals, dishes, laundry, and transportation. Notes her son will A w/ food/meals for pt. Notes groceries get delivered. Hearing / Speech / Vision Hearing: Within Functional Limits Speech: Within Functional Limits Current Vision: Wears glasses all the time Visual History: Cataracts, Surgical intervention Cognition Orientation Level: Oriented to person, Oriented to place, Oriented to month, Disoriented to situation (Oriented to year) Sensation Overall Sensation Status: Within Functional Limits (denies sensation deficits) Bed Mobility Supine to Sit: Min assist, Right Other: HOB elevated, use of rail; vc/tc to walk legs to edge and use rail for support to pull herself up; pt using rail and therapist's hand to pull herself towards edge w/ trunk support also provided for safety Transfers Sit to Stand: Min assist Stand to Sit: Min assist Other: vc for optimal body/LE alignment and sequencing for easier transfer technique Gait Pattern: Decreased diana, R Decreased foot clearance, L Decreased foot clearance, Forward trunk Gait Assistance: Min assist (+2 for safety) Assistive Device: Rolling walker Gait Distance: 2' x2 bed to chair and back, w/ vc for sequencing and A w/ RW management to ensure safety w/ ADLs/self-care tasks upon eventual return home. Limiting Factors to Gait: Fatigue, Weakness, Decreased safety 2 Turns: Not attempted d/t safety concerns Balance Sitting Balance: Static: Good Sitting Balance: Dynamic: Poor Standing Balance: Static: Poor Standing Balance: Dynamic: Poor Other: Pt able to sit EOB unsupported but unable to reach for item w/o lateral deviation, thus requiring A. No LOB w/ activity today. RUE Assessment: (defer to OT) LUE Assessment: (defer to OT) RLE Assessment: Exceptions to WFL RLE Strength RLE Overall Strength: Deficits (3+/5 hip, 5-/5 to 4/5 knee, 4+/5 to 5/5 ankle; grossly) LLE Assessment: Exceptions to WFL LLE Strength LLE Overall Strength: Deficits (2+/5 hip, 4+/5 knee, 4/5 to 4+/5 ankle; grossly) Activity Tolerance Endurance: Tolerates <30 minutes activity WITHOUT vital sign changes Plan Physical Therapy Care Plan Physical Therapy Care Plan (Active) Template: PT - Physical Therapy Problem: Gait Dates: Start: 07/03/25 Disciplines: PT Goal: Patient will perform gait with Stand By Assist Dates: Start: 07/03/25 Expected End: 07/12/25 Description: With__RW__,_25' x2___feet Goal Description: to reduce sedentary lifestyle and increase safety w/ home mobility for ADLs Disciplines: PT Problem: Standing Balance Dates: Start: 07/03/25 Disciplines: PT Goal: Other sitting and standing balance goal (customize) Dates: Start: 07/03/25 Expected End: 07/12/25 Description: Goal Description: pt to macario >5' of dynamic standing activity, including reaching out of CHENTE >10 in all directions, using 0-1 intermittent UE support, and no LOB, to demo increased ind w/ standing ADLs. Disciplines: PT Problem: Transfers Dates: Start: 07/03/25 Disciplines: PT Goal: Patient will perform transfers with Supervision Dates: Start: 07/03/25 Expected End: 07/12/25 Description: Goal Description: including bed mobility (HOB may be elevated, use of rail), to reduce fall risk w/ toileting/self-care tasks. Disciplines: PT Physical Therapy Care Plan (Resolved) There are no resolved problems. Principal Problem: Intractable nausea and vomiting Active Problems: 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 mellitus ([facility] Chronic diastolic congestive heart failure [place] Weakness Iron deficiency anemia 07/03/25 2162 Patient Information Initial Pre-Hospitalization Assessment Completed? Completed Primary Caregiver Self Support System Family Members Discharge Planning Living Arrangements Alone Type of Residence Private residence Private Residence 1 story Can patient reside on one level? Yes Home Care Services Yes Type of Home Care Services Home PT Does The Patient Have Existing Home DME? Yes Existing Home DME Options Walker;Wheelchair Will the patient need DME at discharge? No, the patient has no home DME needs currently Income Information Income Information Retired/Pension/Social Security IP [...] Warm Handoff Complete Caregiver/Family Member Caregiver/Family Member Involved with Current Plan of Care No Caregiver/Family Member in Agreement with Current Plan of Care No Caregiver/Support System Limitations Caregiver/Support Systems Limitations (Check All That Apply) No Caregiver Needed Patient/Caregiver Goals Patient/Caregiver Goals Custodial Care Skilled [facility] Skilled Care (Short Term) Services Requested Patient expects to be discharged to: SNF Does the patient wish to have family/friend/caregiver involved in their discharge planning? No, the patient does not wish to have family/friend/caregiver involved in their discharge planning Discharge Disposition SNF SNF Name [facility] (SNF) [phone] Fax SNF Accepted? (referral sent) Does the patient need discharge transportation arranged? Yes Transportation Arranged Ambulance DC Planning Complete Discharge Milestones Yes DISCHARGE PLANNING NOTE CN met with patient at bedside. CN discussed therapy recommendations and recent hospital admission. Patient agreeable for SNF referral be sent to [facility] only. If [facility] unable to accept, patient would like to return home with [facility]. Patient is current with [facility]. Referral sent to [facility] and [facility]. Discharge plan: [facility] SNF vs Home with [facility] (resume services) [facility] declined due to bed availability. Patient gave CN [facility] as 2nd choice, reviewing/pending bed availability. Daughter at bedside, 2 more choices given. Referrals sent to [facility] [place] and [facility]. - Bethany Lucero RN 07/03/25 1:47 PM Problem: Pain Goal: Patient goal is pain score less than 4, able to rest, and participant in treatment plan as appropriate Description: INTERVENTIONS: 1. Encourage patient or legal benefits representative to report early pain and ask [...] per policy 9. Teach patient or legal benefits representative interventions for comforting Note: Evaluation of progress towards goal: Current medication regimen effective. Patient denie pain. Problem: Safety Goal: Patient will be injury free during hospitalization Description: INTERVENTIONS: 1. Assess patient's risk for falls and implement fall prevention plan of care per policy 2. Provide and maintain a safe environment 3. Proper use of double Identifiers 4. Medication administration using the 5 rights 5. Hand hygiene 6. Specimens are labeled at the bedside 7. Instruct patient/ patient benefits representative about use of safety devices 8. Include patient/ patient benefits representative in decisions related to safety Note: Evaluation of progress towards goal: Safety precautions in place. Problem: Infection Goal: Absence of infection during [...] hygiene technique. 7. Identify and instruct patient/patient benefits representative in use of appropriate isolation precautions for identified infection/symptoms. 8. Provide and discuss with patient/patient benefits representative on educational MDRO sheet. 9. Encourage and monitor nutritional status daily and consult joist setter if indicated. 10. Implement neutropenic guidelines as needed. Note: Evaluation of progress towards goal: Standard precautions in place. Problem: Knowledge Deficit Goal: Patient/patient benefits representative demonstrates understanding of disease process, treatment plan, medications, and discharge instructions Description: INTERVENTIONS 1. Complete learning assessment and assess knowledge base 2. Provide teaching at level of understanding 3. Provide teaching via preferred learning method(s) Note: Evaluation of progress towards goal: POC discussed with pt Problem: Discharge Planning Goal: Discharge to post-acute [...] Arrange for needed discharge transportation as appropriate Note: Evaluation of progress towards goal: initiated Problem: Inadequate Airway Clearance Goal: Patient will [...] deep breathe; encourage incentive spirometer if indicated Note: Evaluation of progress towards goal: monitor Problem: Inadequate Breathing Pattern Goal: Patient will achieve/maintain normal respiratory rate/effort Description: Patient's goal is: INTERVENTIONS 1. Assess and monitor respiratory rate, effort, breathing pattern, and oxygenation 2. Monitor patient for restlessness, anxiety, air hunger 3. Assess physical activity tolerance 4. Assess tobacco history; ask, advise, and refer as appropriate 5. Collaborate with interdisciplinary team and initiate plans/interventions as needed Note: Evaluation of progress towards goal: monitor Goal: Patient will maintain effective ventilation Description: [...] to administer medications/treatments 9. Monitor lab/diagnostic results Note: Evaluation of progress towards goal: monitor Problem: Anxiety Goal: Anxiety is at manageable [...] Collaborate with ancillary departments 14. Include patient/patient benefits representative in decisions related to anxiety Note: Evaluation of progress towards goal: monitor Problem: Activity Intolerance/Impaired Mobility Goal: Mobility/activity is [...] Reposition patient 9. Ensure adequate rest/sleep time Note: Evaluation of progress towards goal: monitor Problem: Inadequate Coping Goal: Demonstrates and verbalizes [...] care 6. Collaborate with pastoral/spiritual care, social media content specialist, mental health counselor as needed. 7. Instruct patient on diversional activities such as physical activity, distraction, and deep breathing exercises to assist with coping 8. Involve patient's benefits representative in care Note: Evaluation of progress towards goal: monitor Problem: Glucose Imbalance Goal: Clinical indication of glucose balance is achieved Description: Patient's goal is: INTERVENTIONS 1. Monitor blood glucose levels as ordered 2. Administer medications as ordered 3. Notify physician of ineffective treatment plan Note: Evaluation of progress towards goal: monitor Goal: Patient's discharge needs are met Description: Patient's goal is: INTERVENTIONS 1. Assess patient for self-management skills 2. Encourage participation in diabetes management 3. Identify potential discharge barriers on admission and throughout hospital stay 4. Involve patient/S.O. in discharge planning process 5. Communicate referral to patient experience coordinator as appropriate 6. Communicate referral to joist setter as appropriate 7. Collaborate with case management/social media content specialist for discharge needs Note: Evaluation of progress towards goal: monitor Problem: Potential for Compromised Skin Integrity Goal: [...] and initiate plans and interventions as needed Note: Evaluation of progress towards goal: monitor Goal: Patient's nutritional intake is adequate Description: [...] supplement as ordered 13. Collaborate with clinical joist setter 14. Include patient/ patient's benefits representative in decisions related to nutrition Note: Evaluation of progress towards goal: monitor Problem: Urinary Incontinence Goal: Perineal skin integrity [...] and initiate plans and interventions as needed Note: Evaluation of progress towards goal: monitor Problem: Pain Goal: Patient goal is pain score less than 4, able to rest, and participant in treatment plan as appropriate Description: INTERVENTIONS: 1. Encourage patient or legal benefits representative to report early pain and ask [...] per policy 9. Teach patient or legal benefits representative interventions for comforting Outcome: Progressing Note: [...] at the bedside 7. Instruct patient/ patient benefits representative about use of safety devices 8. Include patient/ patient benefits representative in decisions related to safety Outcome: Progressing Note: Evaluation of progress towards goal: Pt's risk for falls assessed and fall prevention implemented as needed, safe environment provided and maintained, hand hygiene completed. Problem: Infection Goal: Absence of infection during [...] hygiene technique. 7. Identify and instruct patient/patient benefits representative in use of appropriate isolation precautions for identified infection/symptoms. 8. Provide and discuss with patient/patient benefits representative on educational MDRO sheet. 9. Encourage and monitor nutritional status daily and consult joist setter if indicated. 10. Implement neutropenic guidelines as needed. Outcome: Progressing Note: Evaluation of progress towards goal: Patient VS WNL, remains afebrile for shift. Continue to monitor. Problem: Knowledge Deficit Goal: Patient/patient benefits representative demonstrates understanding of disease process, treatment plan, medications, and discharge instructions Description: INTERVENTIONS 1. Complete learning assessment and assess knowledge base 2. Provide teaching at level of understanding 3. Provide teaching via preferred learning method(s) Outcome: Progressing Note: Evaluation of progress towards goal: POC discussed with patient. Questions answered PRN. Problem: Discharge Planning Goal: Discharge to post-acute [...] Evaluation of progress towards goal: Continue to assess for when appropriate. Problem: Inadequate Airway Clearance Goal: Patient will [...] Evaluation of progress towards goal: Continue to assess for when appropriate. Problem: Inadequate Breathing Pattern Goal: Patient will [...] Evaluation of progress towards goal: Continue to assess for when appropriate. Goal: Patient will maintain effective ventilation Description: [...] Evaluation of progress towards goal: Continue to assess for when appropriate. Problem: Anxiety Goal: Anxiety is at manageable [...] Collaborate with ancillary departments 14. Include patient/patient benefits representative in decisions related to anxiety Outcome: Progressing Note: Evaluation of progress towards goal: Patient is able to verbalize their feeling or concerns. Problem: Activity Intolerance/Impaired Mobility Goal: Mobility/activity is [...] care 6. Collaborate with pastoral/spiritual care, social media content specialist, mental health counselor as needed. 7. Instruct patient on diversional activities such as physical activity, distraction, and deep breathing exercises to assist with coping 8. Involve patient's benefits representative in care Outcome: Progressing Note: Evaluation of progress towards goal: Continue to assess for when appropriate. Problem: Glucose Imbalance Goal: Clinical indication of glucose balance is achieved Description: Patient's goal is: INTERVENTIONS 1. Monitor blood glucose levels as ordered 2. Administer medications as ordered 3. Notify physician of ineffective treatment plan Outcome: Progressing Note: Evaluation of progress towards goal: Patient is being checked bedside ACHS and given insulin according to sliding scale coverage. Goal: Patient's discharge needs are met Description: Patient's goal is: INTERVENTIONS 1. Assess patient for self-management skills 2. Encourage participation in diabetes management 3. Identify potential discharge barriers on admission and throughout hospital stay 4. Involve patient/S.O. in discharge planning process 5. Communicate referral to patient experience coordinator as appropriate 6. Communicate referral to joist setter as appropriate 7. Collaborate with case management/social media content specialist for discharge needs Outcome: Progressing Note: Evaluation of progress towards goal: Continue to assess for when appropriate. Problem: Potential for Compromised Skin Integrity Goal: [...] Note: Evaluation of progress towards goal: Patient is independent with turning and repositioning. Goal: Patient's nutritional intake is adequate Description: [...] supplement as ordered 13. Collaborate with clinical joist setter 14. Include patient/ patient's benefits representative in decisions related to nutrition Outcome: [...] skin protectant applied as needed, labs monitored. documented in this encounter [facility] 07-05-2025 Progress note Formatting of t his note might be different from the original. DISCHARGE PLANNING NOTE BLS transport with [facility] confirmed via PTN to [facility] richard Seth 07.05.25 at 1800 [facility] 07-05-2025 Progress note Formatting of t his note is different from the original. 07/05/25 1028 Services Requested Patient expects to be discharged to: SNF Discharge Disposition SNF SNF Name [facility] richard Seth [address] [place] [address] extension [phone] Fax SNF Accepted? Yes Transportation Arranged Ambulance Patient choice offered Yes List Provided Yes [facility] List Provided Custodial Facility DC Planning Complete Discharge Milestones Yes DISCHARGE PLANNING NOTE Discharge plan: Discharge orders noted. Transportation arranged for 2pm pick up attendant. [facility] Rolo updated on transport time. CRF and 7000 sent via [employer]. - Bethany Lucero RN 07/05/25 10:29 AM [facility] 07-05-2025 Miscellaneous Notes Miter Saw Operator spoke with patient's daughter to schedule a new Patient appointment. She states she will call back to schedule. Looking to get a second opinion. Office number provided documented in this encounter [facility] 07-05-2025 Telephone encounter Note Miter Saw Operator spoke with patient's daughter to schedule a new Patient appointment. She states she will call back to schedule. Looking to get a second opinion. Office number provided [facility] 07-05-2025 Hospital course Narrative Images from the original note were not included. [facility] ROXI ZABALA INTERNAL [facility]IC[facility] [address] [place] [phone] Hospital Medicine Discharge Summary Patient: Cuca Dee Date of : 1945 Room: 24101 Encounter date: 07/05/25 Hospital Day: 4 DATE OF ADMISSION: 07/02/2025 DATE OF DISCHARGE:07/05/2025 DISCHARGE DIAGNOSES Principal Problem: Intractable nausea and vomiting Active Problems: 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 mellitus ([facility]) Chronic diastolic congestive heart failure ([facility]) Weakness Iron deficiency anemia Adnexal mass CONSULTANTS None PCP: Vj Gray, [employer]MENT REPAIRER-CORPORATE STRATEGIST PROCEDURES None HOSPITAL COURSE SUMMARY Ms. Cuca Dee is a pleasant 80-year-old female who came from [facility] they did not have any open beds there for vomiting and generalized weakness. Patient was discharged from another local hospital on June 27 where she had a UTI. Patient was also hypercalcemic at that time and altered mentation. Patient was discharged home on Augmentin unsure she was actually taking it. Patient is normally wheelchair-bound with chronic respiratory failure and is on 3 L of oxygen around the clock with normal SpO2. Patient was having intermittent confusion in the emergency room and was recommended to be admitted for generalized weakness as well as intractable vomiting. Chest x-ray in the ER was negative CT abdomen shows a large left adnexal cyst increased in size since prior evaluation and a known severe changes to right hip pass will prior intertrochanteric fracture that did not have surgical fixation and a small to moderate size hiatal hernia. CT brain shows ventriculomegaly is stable with a right-sided frontal approach ventriculostomy appearing stable. Pelvic ultrasound was done could not tolerate transvaginal there is a 9.2 cystic mass in the left adnexa however can not be said to be certainty whether this is ovarian nature patient to follow up with Dr. Pryor at time of discharge. Patient had 1 day where she had 1 episode of emesis none since KUB was repeated which was negative PT and OT seen recommend senior care facility. Patient was given 1 day of IV fluids did cover for UTI with Rocephin since urine culture was negative did initially have on clear liquids advance diet as tolerated. Electrolytes were replaced. Patient is stable to discharge to senior care facility was having some anxiety did start BuSpar yesterday which did help continued with home Lantus dose will order Mag-Ox at time of discharge as well as MiraLax. Did increase iron to twice a day and repeat BMP in 1 week as well as CBC in 1 week continue with PT OT and speech therapy. Review of Systems Constitutional: Positive for decreased appetite and malaise/fatigue. Negative for chills, diaphoresis and fever. HENT: Negative for congestion. Cardiovascular: Negative for chest pain, dyspnea on exertion, leg swelling and palpitations. Respiratory: Negative for cough, shortness of breath, sputum production and wheezing. Hematologic/Lymphatic: Bruises/bleeds easily. Skin: Negative for dry skin and poor wound healing. Musculoskeletal: Positive for arthritis. Negative for back pain and falls. Gastrointestinal: Negative for bloating, abdominal pain, dysphagia, nausea and vomiting. Genitourinary: Negative for bladder incontinence. Neurological: Positive for excessive daytime sleepiness and weakness. Negative for dizziness, paresthesias and tremors. Psychiatric/Behavioral: Positive for memory loss. Negative for altered mental status. Hypervigilance: Forgetful.The patient is not nervous/anxious. Physical Exam Vitals (on RA) and nursing note reviewed. Constitutional: General: She is not in acute distress. Appearance: Normal appearance. She is ill-appearing (chronic). She is not toxic-appearing or diaphoretic. HENT: Head: Normocephalic and atraumatic. Nose: Nose normal. Mouth/Throat: Mouth: Mucous membranes are moist. Eyes: Pupils: Pupils are equal, round, and reactive to light. Cardiovascular: Rate and Rhythm: Normal rate and regular rhythm. Pulses: Normal pulses. Heart sounds: Murmur heard. Pulmonary: Effort: Pulmonary effort is normal. No respiratory distress. Breath sounds: No wheezing or rales (left base). Abdominal: General: Bowel sounds are normal. There is no distension. Palpations: Abdomen is soft. Tenderness: There is no abdominal tenderness. Musculoskeletal: Cervical back: Normal range of motion and neck supple. Right lower leg: No edema. Left lower leg: No edema. Skin: General: Skin is warm and dry. Capillary Refill: Capillary refill takes less than 2 seconds. Coloration: Skin is pale. Neurological: Mental Status: She is alert and oriented to person, place, and time. Mental status is at baseline. Sensory: No sensory deficit. Motor: Weakness (generalizd) present. Gait: Gait normal. Psychiatric: Mood and Affect: Mood normal. Behavior: Behavior normal. Thought Content: Thought content normal. Judgment: Judgment normal. Sepsis suspected, no-not clinically evident at this time. Code Status: Full Code Labs Recent Results (from the past 48 hours) Bedside Glucose *Place/Obtain serum glucose if >500 per glucometer. Collection Time: 07/03/25 8:23 PM Result Value Ref Range Bedside Glucose (POC) 185 (H) 65 - 99 mg/dL Comprehensive metabolic panel Collection Time: 07/04/25 5:44 AM Result Value Ref Range SODIUM 136 134 - 146 mmol/L POTASSIUM 3.8 3.5 - 5.0 mmol/L CHLORIDE 100 98 - 109 mmol/L CARBON DIOXIDE 26 22 - 32 mmol/L ANION GAP 10 5 - 15 mmol/L BLOOD UREA NITROGEN 14 5 - 27 mg/dL CREATININE 1.27 (H) 0.40 - 1.00 mg/dL GLUCOSE 121 (H) 65 - 99 mg/dL CALCIUM 9.5 8.5 - 10.5 mg/dL TOTAL PROTEIN 7.4 6.0 - 8.0 g/dL ALBUMIN 3.4 3.2 - 5.3 g/dL ALKALINE PHOSPHATASE 130 39 - 130 U/L AST 26 <=41 U/L ALT 16 <=31 U/L BILIRUBIN,TOTAL 0.7 0.3 - 1.2 mg/dL EGFR Non-Race Dependent 43 (L) >=60 ml/min/1.73sq.m Magnesium Collection Time: 07/04/25 5:44 AM Result Value Ref Range MAGNESIUM 1.9 1.8 - 2.6 mg/dL Phosphorus Collection Time: 07/04/25 5:44 AM Result Value Ref Range PHOSPHORUS 3.2 2.4 - 4.9 mg/dL CBC auto differential Collection Time: 07/04/25 5:44 AM Result Value Ref Range WBC 6.5 4 - 11 x10E9/L RBC Count 3.75 (L) 3.8 - 5.2 X10E12/L Hemoglobin 10.2 (L) 11.7 - 15.5 g/dL Hematocrit 30.4 (L) 35 - 47 % MCV 81 80 - 100 fL MCH 27.1 27 - 34 pg MCHC 33.5 32 - 36 g/dL RDW 17.5 (H) 11.5 - 15 % Platelet Count 304 150 - 450 X10E9/L MPV 8.9 7 - 12 fL Neutrophils % 59.3 % Lymphocytes % 24.2 % Monocytes % 12.8 % Eosinophils % 2.9 % Basophils % 0.8 % Neutrophils Absolute (A) 3.9 1.5 - 6.6 10*3/uL Lymphocytes Absolute 1.6 1.0 - 3.5 10*3/uL Monocytes Absolute 0.8 0.0 - 0.9 10*3/uL Eosinophils Absolute 0.2 0.0 - 0.4 10*3/uL Basophils Absolute 0.1 0.0 - 0.2 10*3/uL Differential Type AUTOMATED DIFFERENTIAL Bedside Glucose *Place/Obtain serum glucose if >500 per glucometer. Collection Time: 07/04/25 7:25 AM Result Value Ref Range Bedside Glucose (POC) 144 (H) 65 - 99 mg/dL Bedside Glucose *Place/Obtain serum glucose if >500 per glucometer. Collection Time: 07/04/25 11:12 AM Result Value Ref Range Bedside Glucose (POC) 254 (H) 65 - 99 mg/dL Bedside Glucose *Place/Obtain serum glucose if >500 per glucometer. Collection Time: 07/04/25 4:10 PM Result Value Ref Range Bedside Glucose (POC) 371 (H) 65 - 99 mg/dL Bedside Glucose *Place/Obtain serum glucose if >500 per glucometer. Collection Time: 07/04/25 9:17 PM Result Value Ref Range Bedside Glucose (POC) 189 (H) 65 - 99 mg/dL Comprehensive metabolic panel Collection Time: 07/05/25 6:32 AM Result Value Ref Range SODIUM 135 134 - 146 mmol/L POTASSIUM 3.7 3.5 - 5.0 mmol/L CHLORIDE 100 98 - 109 mmol/L CARBON DIOXIDE 27 22 - 32 mmol/L ANION GAP 8 5 - 15 mmol/L BLOOD UREA NITROGEN 16 5 - 27 mg/dL CREATININE 1.30 (H) 0.40 - 1.00 mg/dL GLUCOSE 157 (H) 65 - 99 mg/dL CALCIUM 9.1 8.5 - 10.5 mg/dL TOTAL PROTEIN 6.8 6.0 - 8.0 g/dL ALBUMIN 3.0 (L) 3.2 - 5.3 g/dL ALKALINE PHOSPHATASE 116 39 - 130 U/L AST 23 <=41 U/L ALT 16 <=31 U/L BILIRUBIN,TOTAL 0.7 0.3 - 1.2 mg/dL EGFR Non-Race Dependent 42 (L) >=60 ml/min/1.73sq.m Magnesium Collection Time: 07/05/25 6:32 AM Result Value Ref Range MAGNESIUM 1.7 (L) 1.8 - 2.6 mg/dL CBC auto differential Collection Time: 07/05/25 6:32 AM Result Value Ref Range WBC 7.0 4 - 11 x10E9/L RBC Count 3.37 (L) 3.8 - 5.2 X10E12/L Hemoglobin 9.1 (L) 11.7 - 15.5 g/dL Hematocrit 27.5 (L) 35 - 47 % MCV 81 80 - 100 fL MCH 27.1 27 - 34 pg MCHC 33.3 32 - 36 g/dL RDW 17.7 (H) 11.5 - 15 % Platelet Count 253 150 - 450 X10E9/L MPV 8.3 7 - 12 fL Neutrophils % 63.4 % Lymphocytes % 19.9 % Monocytes % 12.3 % Eosinophils % 3.8 % Basophils % 0.6 % Neutrophils Absolute (A) 4.4 1.5 - 6.6 10*3/uL Lymphocytes Absolute 1.4 1.0 - 3.5 10*3/uL Monocytes Absolute 0.9 0.0 - 0.9 10*3/uL Eosinophils Absolute 0.3 0.0 - 0.4 10*3/uL Basophils Absolute 0.0 0.0 - 0.2 10*3/uL Differential Type AUTOMATED DIFFERENTIAL Bedside Glucose *Place/Obtain serum glucose if >500 per glucometer. Collection Time: 07/05/25 7:34 AM Result Value Ref Range Bedside Glucose (POC) 140 (H) 65 - 99 mg/dL Bedside Glucose *Place/Obtain serum glucose if >500 per glucometer. Collection Time: 07/05/25 10:56 AM Result Value Ref Range Bedside Glucose (POC) 238 (H) 65 - 99 mg/dL Radiology X-ray abdomen ap 1 view Result Date: 07/03/2025 Narrative: Abdomen single view Clinical history:n/v abdominal pain Comparison: 10/17/2019 Findings: AP supine view of the abdomen. Ventricular shunt catheter tubing, tip in the right lower quadrant. Nonobstructive, nonspecific bowel gas pattern. Impression: Nonobstructive, nonspecific bowel gas pattern. Finalized by Sarai Acevedo MD on 07/03/2025 2:51 PM Ultrasound pelvic with duplex Result Date: 07/02/2025 Narrative: CLINICAL INFORMATION: Evaluate for Ovarian Torsion. TECHNIQUE: Real-time transabdominal sonographic evaluation of the pelvis was performed with villarreal scale and color flow imaging. The patient could not tolerate transvaginal imaging which severely compromises sensitivity the examination. Real time villarreal scale, color flow imaging and duplex spectral Doppler waveform analysis evaluation was performed of the major arterial inflow and venous outflow structures of the ovaries with arterial and venous spectral waveforms obtained and reviewed in view of the clinical history of Evaluate for Ovarian Torsion . Duplex spectral Doppler document arterial and venous spectral waveforms documented within the major arterial inflow and venous outflow of both ovaries. Arterial and venous Doppler duplex spectral waveforms were evaluated. COMPARISON: Comparison made to a CT abdomen pelvis performed earlier in the day FINDINGS: There is partial visualization of a 9.2 x 8.1 x 8.7 cm partially cystic mass in the left adnexa, felt to represent the abnormality described previous CT examination. There is blood flow along the periphery of this lesion, however, it cannot be said with certainty whether the flow is in the ovarian tissue. The right ovary was not visualized due to overlying bowel gas. There is no free fluid in the cul-de-sac. IMPRESSION: * The patient could not tolerate transvaginal imaging which severely compromises the sensitivity examination. * There is a 9.2 cm cystic mass in the left adnexa however cannot be said with certainty whether this is ovarian in nature. Blood flow is documented along the periphery of this lesion, however, cannot be said with certainty whether it is flow within the ovarian tissue. Finalized by Giovanny Zheng MD on 07/02/2025 1:[address] brain without contrast Result Date: 07/02/2025 Narrative: CT HEAD WITHOUT IV CONTRAST CLINICAL STATEMENT: confusion, fall? signs of head injury Comparison study: 05/14/2025 TECHNIQUE: Axial views were obtained at 2.5 mm interval through the head without IV contrast. Automatic dose exposure reduction technique utilized. FINDINGS: The midline structures are not deviated. The ventricular system is prominent as previously documented and is unchanged in appearance without progressive ventriculomegaly. There is no intraventricular hemorrhage. There is no transependymal flow of CSF noted on the study.. The villarreal and white matter show normal attenuation. The posterior fossa is unremarkable. No features of raised intracranial pressure.No intracranial bleed. The IACs are unremarkable. The cerebellopontine angles are unremarkable. The temporomandibular joints show no abnormality. The osseous structures in the skull base and in the calvarium show no definite abnormality. Note is made of a right-sided ventriculostomy with a right frontal approach that demonstrates no acute complication. Tip of this is located in the region of the right foramen of Monro. The orbits are lens replacements.. The paranasal sinuses are clear. The mastoid air cells are clear. IMPRESSION: Ventriculomegaly is stable with a right-sided frontal approach ventriculostomy appearing stable. No acute intracranial pathology. All CT scans at this facility use dose modulation, iterative reconstruction, and/or weight based dosing when appropriate to reduce radiation dose to as low as reasonably achievable. Finalized by Damien Golden MD on 07/02/2025 12:[address] abdomen and pelvis with contrast Result Date: 07/02/2025 Narrative: Study: CT abdomen and pelvis with contrast History:Vomiting UTI Protocol:CT abdomen and pelvis with contrast Contrast 100 mL Omnipaque 300 COMPARISON:06/03/2025 Findings: Lung bases:Normal Liver:Normal Spleen:Normal Gallbladder:Normal Bile ducts:No dilatation Pancreas:Normal Adrenals:Normal Kidneys:Small cysts in the right kidney. Kidneys are otherwise unremarkable Ureters:Normal Bladder:Normal Bowel:Small to moderate-sized hiatal hernia stomach unremarkable. Small bowel is nondilated. Mild large bowel dilatation with stool in the colon which could indicate constipation. No appendicitis or diverticulitis. Reproductive organs:Uterus is unremarkable. There is a complex pelvic cyst in the left adnexa contains calcifications possibly solid component somewhat thick clements and it is multilocular. Measures in aggregate approximately 9.4 x 6.5 cm it is increased significantly in size since previous study of 06/11/2025. [place]:No adenopathy Peritoneum:No free air or free fluid Retroperitoneum:No adenopathy Vessels: Atherosclerotic changes in the aorta no aneurysm Abdominal wall:WELD ENGINEER shunt tube Bones:Severe changes in the right hip possible prior intertrochanteric fracture which has not undergone fixation. IMPRESSION: * Large left adnexal cyst increased in size since previous examination pelvic ultrasound is recommended for further evaluation. * Severe changes in the right hip possible prior intertrochanteric fracture which has not undergone fixation. * Small to moderate-sized hiatal hernia stomach All CT scans at this facility use dose modulation, iterative reconstruction, and/or weight based dosing when appropriate to reduce radiation dose to as low as reasonably achievable. Finalized by Chester Parra MD on 07/02/2025 12:22 PM X-ray chest 1 view Result Date: 07/02/2025 Narrative: Single view chest History: Weakness and vomiting Comparison: X-ray 06/03/2025 Findings: Single portable view of the chest. Cardiomediastinal silhouette and pulmonary vasculature are within normal limits. Lungs and pleural space are clear. There is no pleural effusion or pneumothorax. Shunt catheter overlies right hemithorax. Impression: No acute cardiopulmonary process. Finalized by Jason Bryan on 07/02/2025 11:[address] abdomen and pelvis without contrast Result [...] Ryan Dominguez MD on 06/11/2025 2:23 AM X-ray chest 1 [...] History: Fatigue Comparison: X-ray 05/13/2025 Findings: Single portable view of the chest. Cardiomediastinal silhouette and pulmonary vasculature are within normal limits. Lungs and pleural space are clear. There is [...] appearing right hip lesser trochanteric avulsion fracture. DISCHARGE INSTRUCTION Disposition: nursing home facility Condition:Stable Activity: activity as tolerated Diet: Adult nutrition supplements Adult diet Regular Texture Adult diet Follow up: Vj Gray APRN-BARTOLO within 7-[address] Banegass for the left adnexal cyst Labs/Imaging/Pathology: BMP and CBC one week Discharge Medications: Medication List START taking these medications Instructions Last Dose Given Next Dose Due busPIRone 5 mg tablet Commonly known as: BUSPAR Take 1 tablet (5 mg total) by mouth 3 (three) times a day. insulin glargine 100 unit/mL (3 mL) insulin pen Commonly known as: LANTUS, SEMGLEE Inject 10 Units under the skin nightly. magnesium oxide 400 mg tablet Commonly known as: MAGOX Take 1 tablet (400 mg total) by mouth in the morning. polyethylene glycol 17 gram packet Commonly known as: GLYCOLAX Take 17 g by mouth in the morning. CHANGE how you take these medications Instructions Last Dose Given Next Dose Due ferrous sulfate 325 (65 FE) MG tablet What changed: when to take this Take 1 tablet (325 mg total) by mouth in the morning and 1 tablet (325 mg total) in the evening. Take with meals. traZODone 100 mg tablet Commonly known as: [...] mcg total) by mouth in the morning. furosemide 20 mg tablet Commonly known as: LASIX Take 1 tablet (20 mg total) by mouth daily. insulin lispro 100 unit/mL insulin pen Commonly [...] tablet (7.5 mg total) by mouth nightly. sertraline 100 mg tablet Commonly known as: ZOLOFT Take 1 tablet (100 mg total) by mouth in the morning. Where to Get Your Medications These medications were sent to [id number] - [place], [place] - [address] [facility] [address] [facility] [id number] insulin glargine 100 unit/mL (3 mL) insulin pen Information about where to get these medications is not yet available Ask your nurse or doctor about these medications busPIRone 5 mg tablet ferrous sulfate 325 (65 FE) MG tablet magnesium oxide 400 mg tablet polyethylene glycol 17 gram packet >30 minutes were spent on discharging this patient. KAIDEN Magana 07/05/2025 5:09 PM [facility] Internal Medicine 7AM-7PM & 7PM-7AM: EpicChat or page through On-Call Finder. KAIDEN Magana 07/05/25 1245 Physician Attestation I, Felix Hallman MD, personally [...] with the plan as noted. Patient with known left adnexal mass was admitted with nausea and vomiting. Patient was started on IV normal saline. Patient's symptoms resolved during hospital stay patient is being discharged in stable condition. Follow up with lane attendant Onc as outpatient for left adnexal mass. documented in this encounter [facility] 07-04-2025 Plan of care note Problem: Pain Goal: Patient goal is pain score less than 4, able to rest, and participant in treatment plan as appropriate Description: INTERVENTIONS: 1. Encourage patient or legal benefits representative to report early pain and ask [...] per policy 9. Teach patient or legal benefits representative interventions for comforting Outcome: Progressing Note: [...] at the bedside 7. Instruct patient/ patient benefits representative about use of safety devices 8. Include patient/ patient benefits representative in decisions related to safety Outcome: Progressing Note: Evaluation of progress towards goal: Pt's risk for falls assessed and fall prevention implemented as needed, safe environment provided and maintained, hand hygiene completed. Problem: Infection Goal: Absence of infection during [...] hygiene technique. 7. Identify and instruct patient/patient benefits representative in use of appropriate isolation precautions for identified infection/symptoms. 8. Provide and discuss with patient/patient benefits representative on educational MDRO sheet. 9. Encourage and monitor nutritional status daily and consult joist setter if indicated. 10. Implement neutropenic guidelines as needed. Outcome: Progressing Note: Evaluation of progress towards goal: Patient VS WNL, remains afebrile for shift. Continue to monitor. Problem: Knowledge Deficit Goal: Patient/patient benefits representative demonstrates understanding of disease process, treatment plan, medications, and discharge instructions Description: INTERVENTIONS 1. Complete learning assessment and assess knowledge base 2. Provide teaching at level of understanding 3. Provide teaching via preferred learning method(s) Outcome: Progressing Note: Evaluation of progress towards goal: POC discussed with patient. Questions answered PRN. Problem: Discharge Planning Goal: Discharge to post-acute [...] Evaluation of progress towards goal: Continue to assess for when appropriate. Problem: Inadequate Airway Clearance Goal: Patient will [...] Evaluation of progress towards goal: Continue to assess for when appropriate. Problem: Inadequate Breathing Pattern Goal: Patient will [...] Evaluation of progress towards goal: Continue to assess for when appropriate. Goal: Patient will maintain effective ventilation Description: [...] Evaluation of progress towards goal: Continue to assess for when appropriate. Problem: Anxiety Goal: Anxiety is at manageable [...] Collaborate with ancillary departments 14. Include patient/patient benefits representative in decisions related to anxiety Outcome: Progressing Note: Evaluation of progress towards goal: Patient is independent with turning and repositioning. Problem: Activity Intolerance/Impaired Mobility Goal: Mobility/activity is [...] care 6. Collaborate with pastoral/spiritual care, social media content specialist, mental health counselor as needed. 7. Instruct patient on diversional activities such as physical activity, distraction, and deep breathing exercises to assist with coping 8. Involve patient's benefits representative in care Outcome: Progressing Note: Evaluation of progress towards goal: Patient is able to verbalize their feeling or concerns. Problem: Glucose Imbalance Goal: Clinical indication of glucose balance is achieved Description: Patient's goal is: INTERVENTIONS 1. Monitor blood glucose levels as ordered 2. Administer medications as ordered 3. Notify physician of ineffective treatment plan Outcome: Progressing Note: Evaluation of progress towards goal: Patient is being checked bedside ACHS and given insulin according to sliding scale coverage. Goal: Patient's discharge needs are met Description: Patient's goal is: INTERVENTIONS 1. Assess patient for self-management skills 2. Encourage participation in diabetes management 3. Identify potential discharge barriers on admission and throughout hospital stay 4. Involve patient/S.O. in discharge planning process 5. Communicate referral to patient experience coordinator as appropriate 6. Communicate referral to joist setter as appropriate 7. Collaborate with case management/social media content specialist for discharge needs Outcome: Progressing Note: Evaluation of progress towards goal: Continue to assess for when appropriate. Problem: Potential for Compromised Skin Integrity Goal: [...] Note: Evaluation of progress towards goal: Patient is independent with turning and repositioning. Goal: Patient's nutritional intake is adequate Description: [...] supplement as ordered 13. Collaborate with clinical joist setter 14. Include patient/ patient's benefits representative in decisions related to nutrition Outcome: [...] protectant applied as needed, labs monitored. Problem: Moderate - High Risk Fall Score Description: Patel Fall Score of =/> 25 or indicated by [facility] Assessment Goal: Patient should be free from fall Description: Interventions: 1. Mamou to environment 2. Hourly rounds addressing the [...] non-skid footwear 11. Teach patient and patient benefits representative to maintain environment for safety and [...] (cane, walker) within reach 19. Request patient benefits representative bring adaptive equipment/mobility aids from home or obtain and provide as needed 20. Consult pharmacy regarding effects of med's affecting mobility, cognition, and alternatives 21. Obtain physician order for PT if risk factors associated with mobility are present 22. Obtain physician order for OT as appropriate 23. Utilize diversional activities 24. Educate patient and patient benefits representative how to maintain a safe environment during visitation times (notify nurse prior to leaving bedside) 25. Consider appropriateness of medical or non-medical front desk specialist 26. Set up voiding schedule as appropriate (every 2 hours) Outcome: Progressing Note: Evaluation of progress towards goal: Pt remains free from falls or accidental injury during stay. Fall prevention measures in place. Hourly rounding per RN and maintained. Problem: Readmission Risk Reduction Goal: Readmission Risk Assessment Description: Utilize readmission risk score in the development of discharge plan INTERVENTIONS: 1. Discuss patient's risk of readmission at multidisciplinary discharge transition rounds. 2. Comprehensive assessment of patient's risk of readmission (functional, psychosocial, cognitive). 3. Collaborate with patient / caregiver to identify needs. 4. Handoff to next level of care provider (date night caregiver, PCP, home care). 5. Complete follow up phone call within 72 hours. Outcome: Progressing Note: Evaluation of progress towards goal: Continue to assess for when appropriate. Goal: Discharge Medication Plan Description: Develop a [...] Evaluation of progress towards goal: Continue to assess for when appropriate. Goal: Follow-Up Appointments Description: Schedule patient-centric follow-up appointments prior to discharge INTERVENTIONS: 1. Identify recommended / appropriate timeframes for follow-up. 2. Discuss transportation needs and scheduling preferences with patient. 3. Verify that all follow-up appointments are scheduled prior to discharge. Outcome: Progressing Note: Evaluation of progress towards goal: Continue to assess for when appropriate. Goal: Discharge Medication Reconciliation Description: Review discharge [...] Evaluation of progress towards goal: Continue to assess for when appropriate. Goal: Discharge Instructions Description: Provide accurate and [...] Evaluation of progress towards goal: Continue to assess for when appropriate. [facility] 07-04-2025 Progress note Formatting of t his note might be different from the original. DISCHARGE PLANNING NOTE Prior Auth approved for admission to : [facility] richard Seth P# ; F# Approval # [id number] Valid for Dates: 07/04/25 - 07/10/25 [facility] 07-04-2025 Progress note Formatting of t his note might be different from the original. DISCHARGE PLANNING NOTE Prior auth submitted to: [employer] Via: [employer] On behalf of : [facility] richard Seth P# ; F# REF# [id number] [facility] 07-04-2025 Nurse Note Patient noted to have pulled out IV and telemetry. Miter Saw Operator completed adl's. Patient refused to replace another IV and/ lunch. Jazmine Do CNP advised and see new order. [facility] 07-04-2025 Progress note Formatting of t his note is different from the original. Images from the original note were not included. Ongoing Assessment for Discharge Needs Reviewed discharge milestones and patient needs related to discharge plan. Current estimated discharge date of Jul 05, 2025 has been reviewed by treatment team. Ongoing Assessment for Discharge Needs Flowsheet Row Most Recent Value Services Requested Patient expects to be discharged to: SNF Does the patient wish to have family/friend/caregiver involved in their discharge planning? No, the patient does not wish to have family/friend/caregiver involved in their discharge planning Discharge Disposition SNF SNF Name [facility] ([facility] [phone] Fax SNF Accepted? -- [referral sent] Does the patient need discharge transportation arranged? Yes Transportation Arranged Ambulance DC Planning Complete Discharge Milestones Yes Respiratory Indicator Does the patient currently have home respiratory equipment? No Will the patient need home respiratory equipment upon discharge? No, it is expected that patient will NOT discharge home with respiratory DME needs Discharge plan: [facility] vs Home with [facility] (resume services) [facility] to perform on-site this morning. CN called and left a voicemail for admissions to confirm if onsite was completed/if patient can be accepted. [place] pending bed availability. Once accepting facility established, will start insurance auth. - Bethany Lucero RN 07/04/25 12:28 PM Update: CN spoke with [facility] admissions, they have accepted patient, ok to start precert. Cn called patient's daughter Ileana, agreeable with plan of care. [facility] tasked to start insurance auth for [facility]. - Bethany Lucero RN 07/04/25 1:29 PM [facility] 07-04-2025 History of Present illness Narrative Images from the original note were not included. [facility] ATUL [facility] [address] [place] [phone] Hospital Medicine Progress Note Patient: Cuca Dee Date of : 1945 Room: [facility] PCP: KAIDEN Hopkins Admission date: 07/02/2025 5:45 PM Encounter date: 07/04/25 Hospital Day: 3 SUBJECTIVE Interval History: Status: improved. No overnight events. Patient reports feels ok today. Denies any chest pain/pressure or shortness of breath. Denies any nausea reports that she feels it was the eggs. Upset that she can't go to [facility]. Patient is anxious about where she is going when is she going Review of Systems Constitutional: Positive for decreased appetite and malaise/fatigue. Negative for chills, diaphoresis and fever. HENT: Negative for congestion. Cardiovascular: Negative for chest pain, dyspnea on exertion, leg swelling and palpitations. Respiratory: Negative for cough, shortness of breath, sputum production and wheezing. Hematologic/Lymphatic: Bruises/bleeds easily. Skin: Negative for dry skin and poor wound healing. Musculoskeletal: Positive for arthritis. Negative for back pain and falls. Gastrointestinal: Positive for nausea. Negative for bloating, abdominal pain, dysphagia and vomiting. Genitourinary: Negative for bladder incontinence. Neurological: Positive for excessive daytime sleepiness and weakness. Negative for dizziness, paresthesias and tremors. Psychiatric/Behavioral: Positive for memory loss. Negative for altered mental status. Hypervigilance: Forgetful.The patient is nervous/anxious. OBJECTIVE BP 133/74 Pulse 69 Temp 37 C (98.6 F) (Temporal) Resp 16 Ht 165.1 cm (5' 5 ) Wt 78.5 kg (173 lb) LMP (LMP Unknown) SpO2 93% BMI 28.79 kg/m Temp: [36.1 C (97 F)-37.3 C (99.1 F)] 37 C (98.6 F) Pulse: [67-80] 69 Resp: [16] 16 BP: (133-148)/(61-74) 133/74 SpO2: [93 %-96 %] 93 % O2 Device: None (Room air) O2 Flow Rate (L/min): [0 L/min] 0 L/min Intake/Output Summary (Last 24 hours) at 07/04/2025 1611 Last data filed at 07/04/2025 0900 Gross per 24 hour Intake 860 ml Output 1400 ml Net -540 ml Physical Exam Vitals (on RA) and nursing note reviewed. Constitutional: General: She is not in acute distress. Appearance: Normal appearance. She is ill-appearing (chronic). She is not toxic-appearing or diaphoretic. HENT: Head: Normocephalic and atraumatic. Nose: Nose normal. Mouth/Throat: Mouth: Mucous membranes are moist. Eyes: Pupils: Pupils are equal, round, and reactive to light. Cardiovascular: Rate and Rhythm: Normal rate and regular rhythm. Pulses: Normal pulses. Heart sounds: Murmur heard. Pulmonary: Effort: Pulmonary effort is normal. No respiratory distress. Breath sounds: Rales (bases left > right) present. No wheezing. Abdominal: General: Bowel sounds are normal. There is no distension. Palpations: Abdomen is soft. Tenderness: There is no abdominal tenderness. Musculoskeletal: Cervical back: Normal range of motion and neck supple. Right lower leg: No edema. Left lower leg: No edema. Skin: General: Skin is warm and dry. Capillary Refill: Capillary refill takes less than 2 seconds. Coloration: Skin is pale. Neurological: Mental Status: She is alert and oriented to person, place, and time. Mental status is at baseline. Sensory: No sensory deficit. Motor: Weakness (generalizd) present. Gait: Gait normal. Psychiatric: Mood and Affect: Mood normal. Behavior: Behavior normal. Thought Content: Thought content normal. Judgment: Judgment normal. Medications Scheduled: busPIRone, 5 mg, oral, TID cyanocobalamin, 1,000 mcg, oral, Daily enoxaparin (LOVENOX) injection, 40 mg, subcutaneous, Daily ferrous sulfate, 325 mg, oral, BID with meals insulin glargine, 10 Units, subcutaneous, Nightly insulin lispro, 1-4 Units, subcutaneous, Nightly insulin lispro, 2-10 Units, subcutaneous, TID with meals magnesium oxide, 400 mg, oral, Daily polyethylene glycol, 17 g, oral, Daily sertraline, 100 mg, oral, Daily sodium chloride, 3 mL, intravenous, Q12H DALTON traZODone, 100 mg, oral, Nightly Infusions: dextrose 5 % in water, 100 mL/hr sodium chloride 0.9 %, 20 mL/hr As Needed: acetaminophen alum-mag hydroxide-simeth calcium gluconate calcium gluconate calcium gluconate dextrose dextrose 5 % in water dextrose 50 % in water (D50W) glucagon (human recombinant) magnesium sulfate magnesium sulfate ondansetron potassium chloride OR potassium chloride OR potassium chloride IV (Adult) promethazine OR promethazine sennosides-docusate sodium sodium phosphate IV OR sodium phosphate IV - central line OR sod phos di, mono-K phos mono sodium chloride sodium chloride sodium chloride 0.9 % Allergies: Patient has no known allergies. Labs Recent Results (from the past 24 hours) Bedside Glucose *Place/Obtain serum glucose if >500 per glucometer. Collection Time: 07/03/25 4:55 PM Result Value Ref Range Bedside Glucose (POC) 125 (H) 65 - 99 mg/dL Bedside Glucose *Place/Obtain serum glucose if >500 per glucometer. Collection Time: 07/03/25 8:23 PM Result Value Ref Range Bedside Glucose (POC) 185 (H) 65 - 99 mg/dL Comprehensive metabolic panel Collection Time: 07/04/25 5:44 AM Result Value Ref Range SODIUM 136 134 - 146 mmol/L POTASSIUM 3.8 3.5 - 5.0 mmol/L CHLORIDE 100 98 - 109 mmol/L CARBON DIOXIDE 26 22 - 32 mmol/L ANION GAP 10 5 - 15 mmol/L BLOOD UREA NITROGEN 14 5 - 27 mg/dL CREATININE 1.27 (H) 0.40 - 1.00 mg/dL GLUCOSE 121 (H) 65 - 99 mg/dL CALCIUM 9.5 8.5 - 10.5 mg/dL TOTAL PROTEIN 7.4 6.0 - 8.0 g/dL ALBUMIN 3.4 3.2 - 5.3 g/dL ALKALINE PHOSPHATASE 130 39 - 130 U/L AST 26 <=41 U/L ALT 16 <=31 U/L BILIRUBIN,TOTAL 0.7 0.3 - 1.2 mg/dL EGFR Non-Race Dependent 43 (L) >=60 ml/min/1.73sq.m Magnesium Collection Time: 07/04/25 5:44 AM Result Value Ref Range MAGNESIUM 1.9 1.8 - 2.6 mg/dL Phosphorus Collection Time: 07/04/25 5:44 AM Result Value Ref Range PHOSPHORUS 3.2 2.4 - 4.9 mg/dL CBC auto differential Collection Time: 07/04/25 5:44 AM Result Value Ref Range WBC 6.5 4 - 11 x10E9/L RBC Count 3.75 (L) 3.8 - 5.2 X10E12/L Hemoglobin 10.2 (L) 11.7 - 15.5 g/dL Hematocrit 30.4 (L) 35 - 47 % MCV 81 80 - 100 fL MCH 27.1 27 - 34 pg MCHC 33.5 32 - 36 g/dL RDW 17.5 (H) 11.5 - 15 % Platelet Count 304 150 - 450 X10E9/L MPV 8.9 7 - 12 fL Neutrophils % 59.3 % Lymphocytes % 24.2 % Monocytes % 12.8 % Eosinophils % 2.9 % Basophils % 0.8 % Neutrophils Absolute (A) 3.9 1.5 - 6.6 10*3/uL Lymphocytes Absolute 1.6 1.0 - 3.5 10*3/uL Monocytes Absolute 0.8 0.0 - 0.9 10*3/uL Eosinophils Absolute 0.2 0.0 - 0.4 10*3/uL Basophils Absolute 0.1 0.0 - 0.2 10*3/uL Differential Type AUTOMATED DIFFERENTIAL Bedside Glucose *Place/Obtain serum glucose if >500 per glucometer. Collection Time: 07/04/25 7:25 AM Result Value Ref Range Bedside Glucose (POC) 144 (H) 65 - 99 mg/dL Bedside Glucose *Place/Obtain serum glucose if >500 per glucometer. Collection Time: 07/04/25 11:12 AM Result Value Ref Range Bedside Glucose (POC) 254 (H) 65 - 99 mg/dL Radiology X-ray abdomen ap 1 view Result Date: 07/03/2025 Narrative: Abdomen single view Clinical history:n/v abdominal pain Comparison: 10/17/2019 Findings: AP supine view of the abdomen. Ventricular shunt catheter tubing, tip in the right lower quadrant. Nonobstructive, nonspecific bowel gas pattern. Impression: Nonobstructive, nonspecific bowel gas pattern. Finalized by Sarai Acevedo MD on 07/03/2025 2:51 PM Ultrasound pelvic with duplex Result Date: 07/02/2025 Narrative: CLINICAL INFORMATION: Evaluate for Ovarian Torsion. TECHNIQUE: Real-time transabdominal sonographic evaluation of the pelvis was performed with villarreal scale and color flow imaging. The patient could not tolerate transvaginal imaging which severely compromises sensitivity the examination. Real time villarreal scale, color flow imaging and duplex spectral Doppler waveform analysis evaluation was performed of the major arterial inflow and venous outflow structures of the ovaries with arterial and venous spectral waveforms obtained and reviewed in view of the clinical history of Evaluate for Ovarian Torsion . Duplex spectral Doppler document arterial and venous spectral waveforms documented within the major arterial inflow and venous outflow of both ovaries. Arterial and venous Doppler duplex spectral waveforms were evaluated. COMPARISON: Comparison made to a CT abdomen pelvis performed earlier in the day FINDINGS: There is partial visualization of a 9.2 x 8.1 x 8.7 cm partially cystic mass in the left adnexa, felt to represent the abnormality described previous CT examination. There is blood flow along the periphery of this lesion, however, it cannot be said with certainty whether the flow is in the ovarian tissue. The right ovary was not visualized due to overlying bowel gas. There is no free fluid in the cul-de-sac. IMPRESSION: * The patient could not tolerate transvaginal imaging which severely compromises the sensitivity examination. * There is a 9.2 cm cystic mass in the left adnexa however cannot be said with certainty whether this is ovarian in nature. Blood flow is documented along the periphery of this lesion, however, cannot be said with certainty whether it is flow within the ovarian tissue. Finalized by Giovanny Zheng MD on 07/02/2025 1:[address] brain without contrast Result Date: 07/02/2025 Narrative: CT HEAD WITHOUT IV CONTRAST CLINICAL STATEMENT: confusion, fall? signs of head injury Comparison study: 05/14/2025 TECHNIQUE: Axial views were obtained at 2.5 mm interval through the head without IV contrast. Automatic dose exposure reduction technique utilized. FINDINGS: The midline structures are not deviated. The ventricular system is prominent as previously documented and is unchanged in appearance without progressive ventriculomegaly. There is no intraventricular hemorrhage. There is no transependymal flow of CSF noted on the study.. The villarreal and white matter show normal attenuation. The posterior fossa is unremarkable. No features of raised intracranial pressure.No intracranial bleed. The IACs are unremarkable. The cerebellopontine angles are unremarkable. The temporomandibular joints show no abnormality. The osseous structures in the skull base and in the calvarium show no definite abnormality. Note is made of a right-sided ventriculostomy with a right frontal approach that demonstrates no acute complication. Tip of this is located in the region of the right foramen of Monro. The orbits are lens replacements.. The paranasal sinuses are clear. The mastoid air cells are clear. IMPRESSION: Ventriculomegaly is stable with a right-sided frontal approach ventriculostomy appearing stable. No acute intracranial pathology. All CT scans at this facility use dose modulation, iterative reconstruction, and/or weight based dosing when appropriate to reduce radiation dose to as low as reasonably achievable. Finalized by Damien Golden MD on 07/02/2025 12:[address] abdomen and pelvis with contrast Result Date: 07/02/2025 Narrative: Study: CT abdomen and pelvis with contrast History:Vomiting UTI Protocol:CT abdomen and pelvis with contrast Contrast 100 mL Omnipaque 300 COMPARISON:06/03/2025 Findings: Lung bases:Normal Liver:Normal Spleen:Normal Gallbladder:Normal Bile ducts:No dilatation Pancreas:Normal Adrenals:Normal Kidneys:Small cysts in the right kidney. Kidneys are otherwise unremarkable Ureters:Normal Bladder:Normal Bowel:Small to moderate-sized hiatal hernia stomach unremarkable. Small bowel is nondilated. Mild large bowel dilatation with stool in the colon which could indicate constipation. No appendicitis or diverticulitis. Reproductive organs:Uterus is unremarkable. There is a complex pelvic cyst in the left adnexa contains calcifications possibly solid component somewhat thick clements and it is multilocular. Measures in aggregate approximately 9.4 x 6.5 cm it is increased significantly in size since previous study of 06/11/2025. [place]:No adenopathy Peritoneum:No free air or free fluid Retroperitoneum:No adenopathy Vessels: Atherosclerotic changes in the aorta no aneurysm Abdominal wall:WELD ENGINEER shunt tube Bones:Severe changes in the right hip possible prior intertrochanteric fracture which has not undergone fixation. IMPRESSION: * Large left adnexal cyst increased in size since previous examination pelvic ultrasound is recommended for further evaluation. * Severe changes in the right hip possible prior intertrochanteric fracture which has not undergone fixation. * Small to moderate-sized hiatal hernia stomach All CT scans at this facility use dose modulation, iterative reconstruction, and/or weight based dosing when appropriate to reduce radiation dose to as low as reasonably achievable. Finalized by Chester Parra MD on 07/02/2025 12:22 PM X-ray chest 1 view Result Date: 07/02/2025 Narrative: Single view chest History: Weakness and vomiting Comparison: X-ray 06/03/2025 Findings: Single portable view of the chest. Cardiomediastinal silhouette and pulmonary vasculature are within normal limits. Lungs and pleural space are clear. There is no pleural effusion or pneumothorax. Shunt catheter overlies right hemithorax. Impression: No acute cardiopulmonary process. Finalized by Jason Bryan on 07/02/2025 11:[address] abdomen and pelvis without contrast Result [...] Ryan Dominguez MD on 06/11/2025 2:23 AM X-ray chest 1 [...] History: Fatigue Comparison: X-ray 05/13/2025 Findings: Single portable view of the chest. Cardiomediastinal silhouette and pulmonary vasculature are within normal limits. Lungs and pleural space are clear. There is [...] appearing right hip lesser trochanteric avulsion fracture. HOSPITAL PROBLEM LIST Principal Problem: Intractable nausea and vomiting Active Problems: 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 mellitus ([facility]) Chronic diastolic congestive heart failure ([facility]) Weakness Iron deficiency anemia Adnexal mass ASSESSMENT & PLAN Generalized weakness Hx of right hip fracture 05/09 nonsurgical WBAT -PT OT to see recommend SNF agreeable -speech therapy to see -will cover for UTI until cx comes back with Rocephin d/c negative cx N/v - improving -KUB nonobstructive bowel gas pattern - continue with scopolamine - okay with p.r.n. antiemetics - increase diet -ok with holding off on lasix again today due to just advancing diet. Hypomagnesemia -1.9 supplement Chronic respiratory failure Oxygen dependent at home 2 L -supportive care not in acute exacerbation -encourage cough and deep breathing Diabetes mellitus type 2 without long-term insulin use controlled Poor intake -a.c. and HS Accu-Cheks with sliding scale coverage -dietitian can follow -fluids for one day ok to stop when able Hypertension Hyperlipidemia -continue home medications - 133/74 heart rate 69 Stage IIIB CKD -hold off on Lasix for now since she has had poor intake -strict intake and output daily weights -avoid nephrotoxic medication Obstructive sleep apnea -supposed to wear CPAP encourage as able to tolerate History of aortic valve replacement 2022 Chronic Diastolic CHF not in failure -supportive care -hold lasix -strict I&O's -negative balance 1480ml DC planning: Full code, will need another day. shelter coming to do a bed side evaluation today. Patient is anxious about where she is going and when she is going will add small dose of BuSpar can hold for sedation. Medically Ready for Discharge: Anticipated Tomorrow KAIDEN Magana 07/04/2025 4:11 PM [facility] 7AM-7PM & 7PM-7AM: EpicChat or page through On[employer]. KAIDEN Magana 07/04/25 [id number] Physician Attestation I, Felix Hallman MD, personally [...] agree with the plan as noted. Patient had 1 episode of of vomiting yesterday and was switched to clear liquid diet. Advance diet as tolerated urine cultures negative DC IV Rocephin. Creatinine 1.27 continue to hold Lasix documented in this encounter [facility] 07-04-2025 Progress note Formatting of t his note is different from the original. Physical Therapy Reason For Patient Refusal (comment required): (P) Pain (Pt c/o back pain and requesting to defer therapy until she has her SNF consult today. Will check back later with pt) [facility] Progress note Formatting of t his note is different from the original. Occupational Therapy OT Type of Visit: Patient refusal Pt had just finished eating breakfast upon arrival. Pt c/o low back pain and it was suggested by therapist she transfer to the chair to see if relieves the pain. Pt began getting upset about not wanting to leave the bed and do therapy this morning. Pt stating she wants to talk to the prison rep. When they get here and then do therapy. OT encouraged sitting at EOB for simple ADLs, however, pt again declined this. OT to defer treatment at this time and will attempt again at a later time. [facility] Work Phone: 07-04-2025 Plan of care note Problem: Medication Description: If medication is necessary, use low-risk medication that does not interfere with what matters to the older adult patient, mobility, or mentation across settings of care. Goal: Patient will be screened for high-risk medications once per stay Description: Interventions: 1. Pharmacist to perform medication review to screen for high-risk medications 2. Pharmacist to identify high-risk medications in the Plan of Care note 3. Pharmacist to make recommendations for follow-up in the Plan of Care note, if warranted Outcome: Completed Note: Medications individually and in combination may interfere with What Matters, Mentation, and safe Mobility because of the increased risk of confusion, delirium, unsteadiness and falls. Profile review indicates this patients has active orders for no high risk medications. Chart review also shows no change in renal function. [facility] Work Phone: 07-04-2025 Plan of care note Problem: Pain Goal: Patient goal is pain score less than 4, able to rest, and participant in treatment plan as appropriate Description: INTERVENTIONS: 1. Encourage patient or legal benefits representative to report early pain and ask [...] per policy 9. Teach patient or legal benefits representative interventions for comforting Note: Evaluation of progress towards goal: current medication regimen effective. Patient denies pain. Problem: Safety Goal: Patient will be injury free during hospitalization Description: INTERVENTIONS: 1. Assess patient's risk for falls and implement fall prevention plan of care per policy 2. Provide and maintain a safe environment 3. Proper use of double Identifiers 4. Medication administration using the 5 rights 5. Hand hygiene 6. Specimens are labeled at the bedside 7. Instruct patient/ patient benefits representative about use of safety devices 8. Include patient/ patient benefits representative in decisions related to safety Note: Evaluation of progress towards goal: safety precautions in place. [facility] 07-03-2025 Plan of care note Problem: Pain Goal: Patient goal is pain score less than 4, able to rest, and participant in treatment plan as appropriate Description: INTERVENTIONS: 1. Encourage patient or legal benefits representative to report early pain and ask [...] per policy 9. Teach patient or legal benefits representative interventions for comforting Outcome: Progressing Note: [...] at the bedside 7. Instruct patient/ patient benefits representative about use of safety devices 8. Include patient/ patient benefits representative in decisions related to safety Outcome: Progressing Note: Evaluation of progress towards goal: Pt's risk for falls assessed and fall prevention implemented as needed, safe environment provided and maintained, hand hygiene completed. Problem: Infection Goal: Absence of infection during [...] hygiene technique. 7. Identify and instruct patient/patient benefits representative in use of appropriate isolation precautions for identified infection/symptoms. 8. Provide and discuss with patient/patient benefits representative on educational MDRO sheet. 9. Encourage and monitor nutritional status daily and consult joist setter if indicated. 10. Implement neutropenic guidelines as needed. Outcome: Progressing Note: Evaluation of progress towards goal: Patient VS WNL, remains afebrile for shift. Continue to monitor. Problem: Knowledge Deficit Goal: Patient/patient benefits representative demonstrates understanding of disease process, treatment plan, medications, and discharge instructions Description: INTERVENTIONS 1. Complete learning assessment and assess knowledge base 2. Provide teaching at level of understanding 3. Provide teaching via preferred learning method(s) Outcome: Progressing Note: Evaluation of progress towards goal: POC discussed with patient. Questions answered PRN. Problem: Discharge Planning Goal: Discharge to post-acute [...] Evaluation of progress towards goal: Continue to assess for when appropriate. Problem: Inadequate Airway Clearance Goal: Patient will [...] Evaluation of progress towards goal: Continue to assess for when appropriate. Problem: Inadequate Breathing Pattern Goal: Patient will [...] Evaluation of progress towards goal: Continue to assess for when appropriate. Goal: Patient will maintain effective ventilation Description: [...] Evaluation of progress towards goal: Continue to assess for when appropriate. Problem: Anxiety Goal: Anxiety is at manageable [...] Collaborate with ancillary departments 14. Include patient/patient benefits representative in decisions related to anxiety Outcome: Progressing Note: Evaluation of progress towards goal: Patient is able to verbalize their feeling or concerns. Problem: Activity Intolerance/Impaired Mobility Goal: Mobility/activity is [...] care 6. Collaborate with pastoral/spiritual care, social media content specialist, mental health counselor as needed. 7. Instruct patient on diversional activities such as physical activity, distraction, and deep breathing exercises to assist with coping 8. Involve patient's benefits representative in care Outcome: Progressing Note: Evaluation of progress towards goal: Continue to assess for when appropriate. Problem: Glucose Imbalance Goal: Clinical indication of glucose balance is achieved Description: Patient's goal is: INTERVENTIONS 1. Monitor blood glucose levels as ordered 2. Administer medications as ordered 3. Notify physician of ineffective treatment plan Outcome: Progressing Note: Evaluation of progress towards goal: Patient is being checked bedside ACHS and given insulin according to sliding scale coverage. Goal: Patient's discharge needs are met Description: Patient's goal is: INTERVENTIONS 1. Assess patient for self-management skills 2. Encourage participation in diabetes management 3. Identify potential discharge barriers on admission and throughout hospital stay 4. Involve patient/S.O. in discharge planning process 5. Communicate referral to patient experience coordinator as appropriate 6. Communicate referral to joist setter as appropriate 7. Collaborate with case management/social media content specialist for discharge needs Outcome: Progressing Note: Evaluation of progress towards goal: Continue to assess for when appropriate. Problem: Potential for Compromised Skin Integrity Goal: [...] Note: Evaluation of progress towards goal: Patient is independent with turning and repositioning. Goal: Patient's nutritional intake is adequate Description: [...] supplement as ordered 13. Collaborate with clinical joist setter 14. Include patient/ patient's benefits representative in decisions related to nutrition Outcome: [...] protectant applied as needed, labs monitored. Problem: Moderate - High Risk Fall Score Description: Patel Fall Score of =/> 25 or indicated by [facility] Assessment Goal: Patient should be free from fall Description: Interventions: 1. [place]ou to environment 2. Hourly rounds addressing the [...] non-skid footwear 11. Teach patient and patient benefits representative to maintain environment for safety and [...] (cane, walker) within reach 19. Request patient benefits representative bring adaptive equipment/mobility aids from home or obtain and provide as needed 20. Consult pharmacy regarding effects of med's affecting mobility, cognition, and alternatives 21. Obtain physician order for PT if risk factors associated with mobility are present 22. Obtain physician order for OT as appropriate 23. Utilize diversional activities 24. Educate patient and patient benefits representative how to maintain a safe environment during visitation times (notify nurse prior to leaving bedside) 25. Consider appropriateness of medical or non-medical front desk specialist 26. Set up voiding schedule as appropriate (every 2 hours) Outcome: Progressing Note: Evaluation of progress towards goal: Pt remains free from falls or accidental injury during stay. Fall prevention measures in place. Hourly rounding per RN and maintained. Problem: Readmission Risk Reduction Goal: Readmission Risk Assessment Description: Utilize readmission risk score in the development of discharge plan INTERVENTIONS: 1. Discuss patient's risk of readmission at multidisciplinary discharge transition rounds. 2. Comprehensive assessment of patient's risk of readmission (functional, psychosocial, cognitive). 3. Collaborate with patient / caregiver to identify needs. 4. Handoff to next level of care provider (date night caregiver, PCP, home care). 5. Complete follow up phone call within 72 hours. Outcome: Progressing Note: Evaluation of progress towards goal: Continue to assess for when appropriate. Goal: Discharge Medication Plan Description: Develop a [...] Evaluation of progress towards goal: Continue to assess for when appropriate. Goal: Follow-Up Appointments Description: Schedule patient-centric follow-up appointments prior to discharge INTERVENTIONS: 1. Identify recommended / appropriate timeframes for follow-up. 2. Discuss transportation needs and scheduling preferences with patient. 3. Verify that all follow-up appointments are scheduled prior to discharge. Outcome: Progressing Note: Evaluation of progress towards goal: Continue to assess for when appropriate. Goal: Discharge Medication Reconciliation Description: Review discharge [...] Evaluation of progress towards goal: Continue to assess for when appropriate. Goal: Discharge Instructions Description: Provide accurate and [...] Evaluation of progress towards goal: Continue to assess for when appropriate. [facility] 07-03-2025 Consult note Associated Order (s): IP CONSULT TO NUTRITION SERVICES Summary: Nutrition Assessment NUTRITION ADULT INITIAL EVALUATION NUTRITION ASSESSMENT: Consult received regarding Type 2 DM, and predicted sub-optimal PO intake related to c/o n/v. 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 mellitus [place] Chronic diastolic congestive heart failure [place] Weakness Iron deficiency anemia Past Medical History: Past Medical History: Diagnosis Date Anemia Arthritis Asthma very mild, no inhaler use Cataract Dental disease Depression Diabetes mellitus ([facility] Diabetes mellitus type 2, controlled ([facility] Encephalitis Foot fracture, left GERD (gastroesophageal reflux disease) Heart murmur HLD (hyperlipidemia) Hypertension Incontinence Injury of back Insulin dependent diabetes mellitus Kidney failure STAGE 4 Lumbar spondylolysis Murmur Obesity CHELSEA (obstructive sleep apnea) no machine Peptic ulceration Peripheral vascular disease Shortness of breath Stroke ([facility] 02/27/2024 TIA (transient ischemic attack) Upper respiratory infection UTI (urinary tract infection) Visual impairment Wears dentures Past Surgical History: Past Surgical History: Procedure Laterality Date BREAST BIOPSY Right 03/01/2023 ULT BIOPSY CATARACT EXTRACTION SECTION SECTION 03/14/1974 EGD N/A 10/17/2019 Performed by Sarai Bell DO at [facility] H-PERCUTANEOUS CORONARY INTERVENTION HYSTEROSCOPY DILATION CURETTAGE MYOSURE N/A 01/29/2021 Performed by Jv Briones MD at [facility] INJECTION BLOCK EPIDURAL CAUDAL STEROID N/A 08/14/2022 Performed by Arnulfo Gonzalez MD at [facility] INJECTION BLOCK EPIDURAL CAUDAL STEROID N/A 06/06/2021 Performed by Arnulfo Gonzalez MD at [facility] INJECTION BLOCK EPIDURAL CAUDAL STEROID N/A 04/25/2021 Performed by Arnulfo Gonzalez MD at [facility] INJECTION CAUDAL EPIDURAL WITH CATHETER, STEROID N/A 05/03/2020 Performed by rAnulfo Gonzalez MD at [facility] IN[facility] CAUDAL EPIDURAL WITH CATHETER, STEROID N/A 11/24/2019 Performed by Arnulfo Gonzalez MD at [facility] INJECTION CAUDAL EPIDURAL WITH CATHETER, STEROID N/A 04/21/2019 Performed by Arnulfo Gonzalez MD at [facility] NERVE BLOCK Bilateral L 4/5, 5/1 Bilateral 08/18/2019 Performed by Arnulfo Gonzalez MD at [facility] MEDIAL [facility] NERVE BLOCK Bilateral L 4/5, 5/1 Bilateral 06/23/2019 Performed by Arnulfo Gonzalez MD at [facility] IN[facility]CTION STEROID EPI 1 WITH SEDATION Right L 4, 5 NR Right 03/17/2019 Performed by Arnulfo Gonzalez MD at [facility] INJECTION STEROID EPI 1 WITH SEDATION: right L45 nroot Right 08/15/2018 Performed by Arnulfo Gonzalez MD at [facility] LEFT L4, AND 5 NERVE ROOT INJECTION 2 OF 2 Left 07/22/2018 Performed by Arnulfo Gonzalez MD at [facility] LEFT L4, AND L5 NERVE ROOT 1 OF 2 Left 07/04/2018 Performed by Arnulfo Gonzalez MD at [facility] SHUNT INSERTION TONSILLECTOMY AGE 4 Transcutaneous aortic valve replacement/Transfemoral/Kwan N/A 08/17/2023 Performed by Chava Norris MD at [facility] CATH [facility] Valvuloplasty aortic N/A 06/03/2023 Performed by Chava Norris MD at [facility] CARD[facility] CATH [facility]S Social/ Cognitive/ Economic: Pt lives with her daughter Allergies: No Known Allergies Nutrition Focused Physical Findings 1. Extremities, Muscles, and Bones 2. Skin: Skin Color: [place] (07/03/25 0750) Skin Temp: Warm (07/03/25 0750) 3. Wound: 4. Gastrointestinal: Abdomen Assessment: Soft; Nondistended (07/03/25 0750) 5. Edema: 6. Overall Appearance: overweight Labs: Results from last 3 days Lab Units 07/03/25 0507/02/25 1038 SODIUM mmol/L 132* 133* POTASSIUM mmol/L 3.8 3.9 CHLORIDE mmol/L 98 96* CO2 mmol/L 25 23 BUN mg/dL 18 23 CREATININE mg/dL 1.17* 1.17* CALCIUM mg/dL 9.0 9.7 ALBUMIN g/dL 3.2 3.6 ALK PHOS U/L 115 135* ALT U/L 14 18 AST U/L 21 29 Results from last 7 days Lab Units 07/03/25 1141 07/03/25 0758 07/03/25 0522 07/02/25 1908 07/02/25 1038 BEDSIDE GLUCOSE mg/dL 204* 125* -- 99 -- GLUCOSE mg/dL -- -- 103* -- 131* Results from last 3 days Lab Units 07/03/25 0522 07/02/25 1038 WBC x10E9/L 6.2 7.2 HEMOGLOBIN g/dL 9.2* 10.3* HEMATOCRIT % 27.6* 31.1* PLATELETS X10E9/L 314 401 MCV fL 81 80 Results from last 3 days Lab Units 07/03/25 0522 07/02/25 1038 MAGNESIUM mg/dL 1.8 1.4* Results from last 3 days Lab Units 07/03/25 0522 07/02/25 1844 PHOSPHORUS mg/dL 3.1 3.0 Lab Results Component Value Date HGBA1C 9.2 (H) 12/04/2024 Lab Results Component Value Date IRON 11 (L) 02/13/2025 TIBC 279 02/13/2025 FERRITIN 98 02/13/2025 Lab Results Component Value Date IRONSAT 4 (L) 02/13/2025 Lab Results Component Value Date CHOL 133 (L) 12/04/2024 Lab Results Component Value Date CHDL 2.8 12/04/2024 Lab Results Component Value Date HDL 47 12/04/2024 Lab Results Component Value Date LDLCALC 70 12/04/2024 Lab Results Component Value Date TRIG 82 12/04/2024 Lab Results Component Value Date VERYLOWLIP 16 12/04/2024 Lab Results Component Value Date [id number] 187 02/13/2025 Lab Results Component Value Date FOLATE 5.2 (L) 02/13/2025 Lab Results Component Value Date VITD25 36.2 02/13/2025 Medications/ Parenteral: Medications Prior to Admission Medication Sig Dispense Refill Last Dose/Taking acetaminophen (TYLENOL) 500 mg tablet Take 2 tablets (1,000 mg total) by mouth every 6 (six) hours as needed for pain. 07/01/2025 cyanocobalamin 1000 MCG tablet Take 1 tablet (1,000 mcg total) by mouth in the morning. 07/01/2025 ferrous sulfate 325 (65 FE) MG tablet Take 1 tablet (325 mg total) by mouth daily with breakfast. 07/01/2025 furosemide (LASIX) 20 mg tablet Take 1 tablet (20 mg total) by mouth daily. 07/01/2025 insulin lispro (HumaLOG) 100 unit/mL insulin pen Inject 2-10 Units under the skin 4 (four) times a day with meals and nightly. 151-200 mg/dL, give 2 units. 201-250 mg/dL, give 4 units. 251-300 mg/dL, give 6 units. 301-350 mg/dL, give 8 units 351-400 mg/dL, give 10 units 15 mL 12 07/01/2025 letrozole (FEMARA) 2.5 mg chemo tablet Take 1 tablet by mouth daily 90 tablet 3 07/01/2025 mirtazapine (REMERON) 7.5 mg tablet Take 1 tablet (7.5 mg total) by mouth nightly. 90 tablet 1 07/01/2025 sertraline (ZOLOFT) 100 mg tablet Take 1 tablet (100 mg total) by mouth in the morning. 07/01/2025 traZODone (DESYREL) 100 mg tablet TAKE 1 TABLET BY MOUTH EVERY DAY AT NIGHT (Patient taking differently: Take 1 tablet (100 mg total) by mouth nightly. TAKE 1 TABLET BY MOUTH EVERY DAY AT NIGHT) 90 tablet 1 07/01/2025 lidocaine (SALONPAS) 4 % Place 1 patch on the skin daily. 30 patch 0 Current Facility-Administered Medications Medication Dose Route Frequency Provider Last Rate Last Admin acetaminophen (TYLENOL) tablet 650 mg 650 mg oral Q4H PRN Felix Hallman MD alum-mag hydroxide-simeth (MAALOX) 200-200-20 mg/5 mL suspension 30 mL 30 mL oral [facility] Felix aHllman MD calcium gluconate 2,000 mg in sodium chloride 0.9 % 100 mL IVPB 2,000 mg intravenous PRN Felix Hallman MD calcium gluconate 3,000 mg in sodium chloride 0.9 % 100 mL IVPB 3,000 mg intravenous PRN Felix Hallman MD calcium gluconate 4,000 mg in sodium chloride 0.9 % 250 mL IVPB 4,000 mg intravenous PRN Felix Hallman MD cefTRIAXone (ROCEPHIN) 1,000 mg in sodium chloride 0.9 % 50 mL IVPB W/ADAPTER 1,000 mg intravenous Q24H Felix Hallman MD Stopped at 07/02/25 211 cyanocobalamin tablet 1,000 mcg 1,000 mcg oral Daily Felix Hallman MD 1,000 mcg at 07/03/25 0852 dextrose (GLUTOSE) 40 % gel 15 g 15 g oral PRN Felix Hallman MD dextrose (GLUTOSE) 40 % gel 15 g 15 g oral PRN Felix Hallman MD dextrose 5 % (D5W) infusion 100 mL/hr intravenous Continuous PRN Felix Hallman MD dextrose 5 % (D5W) infusion 100 mL/hr intravenous Continuous PRN Felix Hallman MD dextrose 50 % in water (D50W) 50% solution 25 mL 25 mL intravenous PRN Felix Hallman MD dextrose 50 % in water (D50W) 50% solution 25 mL 25 mL intravenous PRN Felix Hallman MD enoxaparin (LOVENOX) syringe 40 mg 40 mg subcutaneous Daily Felix Hallman MD 40 mg at 07/03/25 0600 ferrous sulfate tablet 325 mg 325 mg oral BID with meals KAIDEN Magana 325 mg at 07/03/25 0852 glucagon HCL injection 1 mg 1 mg intramuscular PRN Felix Hallman MD glucagon HCL injection 1 mg 1 mg intramuscular PRN Felix Hallman MD insulin glargine (LANTUS, SEMGLEE) injection pen 10 Units 10 Units subcutaneous Nightly KAIDEN Magana insulin lispro (HumaLOG) injection 1-4 Units 1-4 Units subcutaneous Nightly Felix Hallman MD insulin lispro (HumaLOG) injection 2-10 Units 2-10 Units subcutaneous TID with meals eFlix Hallman MD 4 Units at 07/03/25 1152 magnesium oxide (MAGOX) tablet 400 mg 400 mg oral Daily Felix Hallman MD 400 mg at 07/03/25 0852 magnesium sulfate IVPB 2000 mg/50 mL in iso-osmotic water (40 mg/mL premix) 2,000 mg intravenous PRN Felix Hallman MD magnesium sulfate IVPB 4000 mg/100 mL in iso-osmotic water (40 mg/mL premix) 4,000 mg intravenous PRN Felix Hallman MD ondansetron (PF) (ZOFRAN) injection 4 mg 4 mg intravenous Q4H PRN Felix Hallman MD polyethylene glycol (GLYCOLAX) packet 17 g 17 g oral Daily KAIDEN Magana 17 g at 07/03/25 1152 promethazine (PHENERGAN) tablet 12.5 mg 12.5 mg oral Q6H PRN Felix Hallman MD Or promethazine (PHENERGAN) suppository 12.5 mg 12.5 mg rectal Q6H PRN Felix Hallman MD scopolamine (TRANSDERM-SCOP) 1 mg/3 days 1 patch 1 patch transdermal Q72H Felix Hallman MD 1 patch at 07/02/25 1910 sennosides-docusate sodium (SENOKOT-S) 8.6-50 mg 1 tablet 1 tablet oral Q12H PRN Felix Hallman MD sertraline (ZOLOFT) tablet 100 mg 100 mg oral Daily Felix Hallman MD 100 mg at 07/03/25 0852 sodium phosphate 20 mmol in sodium chloride 0.9 % 250 mL IVPB 20 mmol intravenous PRN Felix Hallman MD Or sodium phosphate 20 mmol in sodium chloride 0.9 % 100 mL IVPB 20 mmol intravenous PRN Felix Hallman MD Or sod phos di, mono-K phos mono (K-PHOS NEUTRAL) 250 mg tablet 2 tablet 2 tablet oral PRN Felix Hallman MD sodium chloride 0.9 % flush 3 mL 3 mL intravenous PRN Felix Hallman MD sodium chloride 0.9 % flush 3 mL 3 mL intravenous Q12H [place] Felix Hallman MD 3 mL at 07/03/25 0853 sodium chloride 0.9 % flush bag 25 mL intravenous PRN Felix Hallman MD sodium chloride 0.9 % infusion 20 mL/hr intravenous Continuous PRN Felix Hallman MD sodium chloride 0.9 % infusion 50 mL/hr intravenous Continuous Felix Hallman MD 50 mL/hr at 07/02/252047 50 mL/hr at 07/02/252047 traZODone (DESYREL) tablet 100 mg 100 mg oral Nightly Felix Hallman MD 100 mg at 07/02/252118 Anthropometrics: Ht Readings from Last 1 Encounters: 07/02/25 165.1 cm (5' 5 ) Wt Readings from Last 1 Encounters: 07/02/25 78.5 kg (173 lb) Usual Body Weight: 180 pounds Wt Readings from Last 10 Encounters: 07/02/25 78.5 kg (173 lb) 07/02/25 83 kg (183 lb) 06/13/25 83.4 kg (183 lb 12.8 oz) 06/05/25 83.6 kg (184 lb 3.2 oz) 05/29/25 86.6 kg (191 lb) 05/15/25 84.3 kg (185 lb 13.6 oz) 05/12/25 81.6 kg (180 lb) 05/11/25 81.6 kg (180 lb) 05/09/25 81.6 kg (180 lb) 04/04/25 83.9 kg (185 lb) Percent Usual Body Weight: 96% [place] Body Weight: 57 (07/02/251814) Percent [place] Body Weight: 138% Body mass index is 28.79 kg/m . BMI Category: Overweight (> or = 25.00) Food/Nutrition- Related History: Pt states that she ate some scrambled eggs this a.m., but they didn't sit very well . Pt states that she ordered chicken noodle soup for lunch. Episode of vomiting noted after lunch, diet changed to Clear Liquid Dietary Orders (From admission, onward) Start Ordered 07/03/25 1308 Adult diet Clear Liquid Diet effective now Question: Diet Type: Answer: Clear Liquid 07/03/25 1307 07/03/25 0722 Adult nutrition supplements Continuous Question Answer Comment Diet Type or Consistency: Regular Texture Select Supplement: Standard House Supplement 4 oz Supplement Frequency: TID 07/03/25 0721 Diet Intakes: Percent Meals Eaten (%): 75 (07/03/25 0930) Intake/ Output Last 24 hrs: Intake/Output Summary (Last 24 hours) at 07/03/2025 1428 Last data filed at 07/03/2025 0930 Gross per 24 hour Intake 240 ml Output 900 ml Net -660 ml Oral Supplemental Intake/ Acceptance: Ensure Compact changed to Ensure Clear TID Nutrition Education Needs: No Comments: pt denies need Estimated Needs Based on Comparative Standards: Estimated Energy Needs: 1765-4976 kcals daily. Method and weight used: 25-30 kcal/kg IBW Estimated Protein Needs: 68-114 grams daily. Method and weight used: 1.2-2 g protein/kg IBW Estimated Fluid Needs: 9031-5035 ml daily. Method weight used: 1 ml/kcal Comments: floor needs Malnutrition Status: Malnutrition Present: No Severity of Protein Calorie Malnutrition: n/a NUTRITION DIAGNOSIS: Intake Diagnosis: Predicted suboptimal energy intake (NI 1.4) related to intractable n/v as evidenced by pt vomited after lunch, diet changed to Clear Liquid which is not adequate to meet estimated nutritional needs. Nutrition Prescription: Clear Liquid diet ordered after episode of vomiting noted after pt ate lunch. Changed nutritional supplements to Ensure Clear TID as Clear Liquid diet inadequate to meet estimated protein and kcal needs. Pt told show card writer that Breakfast did not sit well with her either. Pt with h/o Type 2 DM, pt stated last A1c from Endocrinology office was below 7%, pt wears a Dex Com CGM. Pt's BG ranging from 99-204, Humalog ssc ac and hs ordered, pt reports taking Levemir 20 units and Humalog ssc ac at home. Notified CORPORATE STRATEGIST of home Levemir dose as not on med rec, ordered Lantus 10 units to start tonight. NUTRITION INTERVENTIONS: Meals & snacks: Clear liquid diet Supplements (medical food, vitamin or mineral): Ensure Clear TID Coordination of nutrition care: discussed insulin needs with CORPORATE STRATEGIST Coordination of nutrition care: reviewed home insulin regimen with pt Goals: Tolerates oral intake RECOMMENDATIONS: Continue Clear Liquid diet, will add Ensure Clear TID. Advance diet to Regular as tolerance permits. Will monitor PO tolerance as diet advanced. Nutrition Monitoring and Evaluation: Fluid/Beverage Intake (1.2.1), Food Intake (1.2.2), and Weight Change, Lab Values and POC Waleska Ball RD, LD, CDCES [facility] 07-03-2025 Consult note Associated Order (s): IP CONSULT TO NUTRITION SERVICES Summary: Nutrition Assessment NUTRITION ADULT INITIAL EVALUATION NUTRITION ASSESSMENT: Consult received regarding Type 2 DM, and predicted sub-optimal PO intake related to c/o n/v. 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 [place] Chronic diastolic congestive heart failure [place] Weakness Iron deficiency anemia Past Medical History: Past Medical History: Diagnosis Date Anemia Arthritis Asthma very mild, no inhaler use Cataract Dental disease Depression Diabetes [place] Diabetes mellitus type 2, controlled [place] Encephalitis Foot fracture, left GERD (gastroesophageal reflux disease) Heart murmur HLD (hyperlipidemia) Hypertension Incontinence Injury of back Insulin dependent diabetes mellitus Kidney failure STAGE 4 Lumbar spondylolysis Murmur Obesity CHELSEA (obstructive sleep apnea) no machine Peptic ulceration Peripheral vascular disease Shortness of breath St[place] 02/27/2024 TIA (transient ischemic attack) Upper respiratory infection UTI (urinary tract infection) Visual impairment Wears dentures Past Surgical History: Past Surgical History: Procedure Laterality Date BREAST BIOPSY Right 03/01/2023 ULT BIOPSY CATARACT EXTRACTION SECTION SECTION 03/14/1974 EGD N/A 10/17/2019 Performed by Sarai Bell DO at [facility] H-PERCUTANEOUS CORONARY INTERVENTION HYSTEROSCOPY DILATION CURETTAGE MYOSURE N/A 01/29/2021 Performed by Jv Briones MD at [facility] INJECTION BLOCK EPIDURAL CAUDAL STEROID N/A 08/14/2022 Performed by Arnulfo Gonzalez MD at [facility] INJECTION BLOCK EPIDURAL CAUDAL STEROID N/A 06/06/2021 Performed by Arnulfo Gonzalez MD at [facility] INJECTION BLOCK EPIDURAL CAUDAL STEROID N/A 04/25/2021 Performed by Arnulfo Gonzalez MD at [facility] INJECTION CAUDAL EPIDURAL WITH CATHETER, STEROID N/A 05/03/2020 Performed by Arnulfo Gonzalez MD at [facility] INJECTION CAUDAL EPIDURAL WITH CATHETER, STEROID N/A 11/24/2019 Performed by Arnulfo Gonzalez MD at [facility] INJECTION CAUDAL EPIDURAL WITH CATHETER, STEROID N/A 04/21/2019 Performed by Arnulfo Gonzalez MD at [facility] INJECTION MEDIAL BRANCH NERVE BLOCK Bilateral L 4/5, 5/ Bilateral 08/18/2019 Performed by Arnulfo Gonzalez MD at [facility] INJECTION MEDIAL BRANCH NERVE BLOCK Bilateral L 4/5, 5/1 Bilateral 06/23/2019 Performed by Arnulfo Gonzalez MD at [facility] INJECTION STEROID EPI 1 WITH SEDATION Right L 4, 5 NR Right 03/17/2019 Performed by Arnulfo Gonzalez MD at [facility] INJECTION STEROID EPI 1 WITH SEDATION: right L45 nroot Right 08/15/2018 Performed by Arnulfo Gonzalez MD at [facility] LEFT L4, AND 5 NERVE ROOT INJECTION 2 OF 2 Left 07/22/2018 Performed by Arnulfo Gonzalez MD at [facility] LEFT L4, AND L5 NERVE ROOT 1 OF 2 Left 07/04/2018 Performed by Arnulfo Gonzalez MD at [facility] SHUNT INSERTION TONSILLECTOMY AGE 4 Transcutaneous aortic valve replacement/Transfemoral/Kwan N/A 08/17/2023 Performed by Chava Norris MD at [facility] CARDIAC CATH LABS Valvuloplasty aortic N/A 06/03/2023 Performed by Chava Norris MD at [facility] CARDIAC CATH LABS Social/ Cognitive/ Economic: Pt lives with her daughter Allergies: No Known Allergies Nutrition Focused Physical Findings 1. Extremities, Muscles, and Bones 2. Skin: Skin Color: [place] (07/03/25 0750) Skin Temp: Warm (07/03/25 0750) 3. Wound: 4. Gastrointestinal: Abdomen Assessment: Soft; Nondistended (07/03/25 0750) 5. Edema: 6. Overall Appearance: overweight Labs: Results from last 3 days Lab Units 07/03/25 0522 07/02/25 1038 SODIUM mmol/L 132* 133* POTASSIUM mmol/L 3.8 3.9 CHLORIDE mmol/L 98 96* CO2 mmol/L 25 23 BUN mg/dL 18 23 CREATININE mg/dL 1.17* 1.17* CALCIUM mg/dL 9.0 9.7 ALBUMIN g/dL 3.2 3.6 ALK PHOS U/L 115 135* ALT U/L 14 18 AST U/L 21 29 Results from last 7 days Lab Units 07/03/25 1141 07/03/25 0758 07/03/25 0522 07/02/25 1908 07/02/25 1038 BEDSIDE GLUCOSE mg/dL 204* 125* -- 99 -- GLUCOSE mg/dL -- -- 103* -- 131* Results from last 3 days Lab Units 07/03/25 0522 07/02/25 1038 WBC x10E9/L 6.2 7.2 HEMOGLOBIN g/dL 9.2* 10.3* HEMATOCRIT % 27.6* 31.1* PLATELETS X10E9/L 314 401 MCV fL 81 80 Results from last 3 days Lab Units 07/03/25 0522 07/02/25 1038 MAGNESIUM mg/dL 1.8 1.4* Results from last 3 days Lab Units 07/03/25 0522 07/02/25 1844 PHOSPHORUS mg/dL 3.1 3.0 Lab Results Component Value Date HGBA1C 9.2 (H) 12/04/2024 Lab Results Component Value Date IRON 11 (L) 02/13/2025 TIBC 279 02/13/2025 FERRITIN 98 02/13/2025 Lab Results Component Value Date IRONSAT 4 (L) 02/13/2025 Lab Results Component Value Date CHOL 133 (L) 12/04/2024 Lab Results Component Value Date CHDL 2.8 12/04/2024 Lab Results Component Value Date HDL 47 12/04/2024 Lab Results Component Value Date LDLCALC 70 12/04/2024 Lab Results Component Value Date TRIG 82 12/04/2024 Lab Results Component Value Date VERYLOWLIP 16 12/04/2024 Lab Results Component Value Date QBROHIJI92 187 02/13/2025 Lab Results Component Value Date FOLATE 5.2 (L) 02/13/2025 Lab Results Component Value Date VITD25 36.2 02/13/2025 Medications/ Parenteral: Medications Prior to Admission Medication Sig Dispense Refill Last Dose/Taking acetaminophen (TYLENOL) 500 mg tablet Take 2 tablets (1,000 mg total) by mouth every 6 (six) hours as needed for pain. 07/01/2025 cyanocobalamin 1000 MCG tablet Take 1 tablet (1,000 mcg total) by mouth in the morning. 07/01/2025 ferrous sulfate 325 (65 FE) MG tablet Take 1 tablet (325 mg total) by mouth daily with breakfast. 07/01/2025 furosemide (LASIX) 20 mg tablet Take 1 tablet (20 mg total) by mouth daily. 07/01/2025 insulin lispro (HumaLOG) 100 unit/mL insulin pen Inject 2-10 Units under the skin 4 (four) times a day with meals and nightly. 151-200 mg/dL, give 2 units. 201-250 mg/dL, give 4 units. 251-300 mg/dL, give 6 units. 301-350 mg/dL, give 8 units 351-400 mg/dL, give 10 units 15 mL 12 07/01/2025 letrozole (FEMARA) 2.5 mg chemo tablet Take 1 tablet by mouth daily 90 tablet 3 07/01/2025 mirtazapine (REMERON) 7.5 mg tablet Take 1 tablet (7.5 mg total) by mouth nightly. 90 tablet 1 07/01/2025 sertraline (ZOLOFT) 100 mg tablet Take 1 tablet (100 mg total) by mouth in the morning. 07/01/2025 traZODone (DESYREL) 100 mg tablet TAKE 1 TABLET BY MOUTH EVERY DAY AT NIGHT (Patient taking differently: Take 1 tablet (100 mg total) by mouth nightly. TAKE 1 TABLET BY MOUTH EVERY DAY AT NIGHT) 90 tablet 1 07/01/2025 lidocaine (SALONPAS) 4 % Place 1 patch on the skin daily. 30 patch 0 Current Facility-Administered Medications Medication Dose Route Frequency Provider Last Rate Last Admin acetaminophen (TYLENOL) tablet 650 mg 650 mg oral Q4H PRN Felix Hallman MD alum-mag hydroxide-simeth (MAALOX) 200-200-20 mg/5 mL suspension 30 mL 30 mL oral PCHSP Felix Hallman MD calcium gluconate 2,000 mg in sodium chloride 0.9 % 100 mL IVPB 2,000 mg intravenous PRN Felix Hallman MD calcium gluconate 3,000 mg in sodium chloride 0.9 % 100 mL IVPB 3,000 mg intravenous PRN Felix Hallman MD calcium gluconate 4,000 mg in sodium chloride 0.9 % 250 mL IVPB 4,000 mg intravenous PRN Felix Hallman MD cefTRIAXone (ROCEPHIN) 1,000 mg in sodium chloride 0.9 % 50 mL IVPB W/ADAPTER 1,000 mg intravenous Q24H Felix Hallman MD Stopped at 07/02/252118 cyanocobalamin tablet 1,000 mcg 1,000 mcg oral Daily Felix Hallman MD 1,000 mcg at 07/03/25 0852 dextrose (GLUTOSE) 40 % gel 15 g 15 g oral PRN Felix Hallman MD dextrose (GLUTOSE) 40 % gel 15 g 15 g oral PRN Felix Hallman MD dextrose 5 % (D5W) infusion 100 mL/hr intravenous Continuous PRN Felix Hallman MD dextrose 5 % (D5W) infusion 100 mL/hr intravenous Continuous PRN Felix Hallman MD dextrose 50 % in water (D50W) 50% solution 25 mL 25 mL intravenous PRN Felix Hallman MD dextrose 50 % in water (D50W) 50% solution 25 mL 25 mL intravenous PRN Felix Hallman MD enoxaparin (LOVENOX) syringe 40 mg 40 mg subcutaneous Daily Felix Hallman MD 40 mg at 07/03/25 0600 ferrous sulfate tablet 325 mg 325 mg oral BID with meals KAIDEN Magana 325 mg at 07/03/25 0852 glucagon HCL injection 1 mg 1 mg intramuscular PRN Felix Hallman MD glucagon HCL injection 1 mg 1 mg intramuscular PRN Felix Hallman MD insulin glargine (LANTUS, SEMGLEE) injection pen 10 Units 10 Units subcutaneous Nightly KAIDEN Magana insulin lispro (HumaLOG) injection 1-4 Units 1-4 Units subcutaneous Nightly Felix Hallman MD insulin lispro (HumaLOG) injection 2-10 Units 2-10 Units subcutaneous TID with meals Felix Hallman MD 4 Units at 07/03/25 1152 magnesium oxide (MAGOX) tablet 400 mg 400 mg oral Daily Felix Hallman MD 400 mg at 07/03/25 0852 magnesium sulfate IVPB 2000 mg/50 mL in iso-osmotic water (40 mg/mL premix) 2,000 mg intravenous PRN Felix Hallman MD magnesium sulfate IVPB 4000 mg/100 mL in iso-osmotic water (40 mg/mL premix) 4,000 mg intravenous PRN Felix Hallman MD ondansetron (PF) (ZOFRAN) injection 4 mg 4 mg intravenous Q4H PRN Felix Hallman MD polyethylene glycol (GLYCOLAX) packet 17 g 17 g oral Daily Jazmine Do, [employer]PA[employer]-CORPORATE STRATEGIST 17 g at 07/03/25 1152 promethazine (PHENERGAN) tablet 12.5 mg 12.5 mg oral Q6H PRN Felix Hallman MD Or promethazine (PHENERGAN) suppository 12.5 mg 12.5 mg rectal Q6H PRN Felix Hallman MD scopolamine (TRANSDERM-SCOP) 1 mg/3 days 1 patch 1 patch transdermal Q72H Felix Hallman MD 1 patch at 07/02/25 1910 sennosides-docusate sodium (SENOKOT-S) 8.6-50 mg 1 tablet 1 tablet oral Q12H PRN Felix Hallman MD sertraline (ZOLOFT) tablet 100 mg 100 mg oral Daily Felix Hallman MD 100 mg at 07/03/25 0852 sodium phosphate 20 mmol in sodium chloride 0.9 % 250 mL IVPB 20 mmol intravenous PRN Felix Hallman MD Or sodium phosphate 20 mmol in sodium chloride 0.9 % 100 mL IVPB 20 mmol intravenous PRN Felix Hallamn MD Or sod phos di, mono-K phos mono (K-PHOS NEUTRAL) 250 mg tablet 2 tablet 2 tablet oral PRN Felix Hallman MD sodium chloride 0.9 % flush 3 mL 3 mL intravenous PRN Felix Hallman MD sodium chloride 0.9 % flush 3 mL 3 mL intravenous Q12H [place] Felix Hallman MD 3 mL at 07/03/25 0853 sodium chloride 0.9 % flush bag 25 mL intravenous PRN Felix Hallman MD sodium chloride 0.9 % infusion 20 mL/hr intravenous Continuous PRN Felix Hallman MD sodium chloride 0.9 % infusion 50 mL/hr intravenous Continuous Felix Hallman MD 50 mL/hr at 07/02/252047 50 mL/hr at 07/02/252047 traZODone (DESYREL) tablet 100 mg 100 mg oral Nightly Felix Hallman MD 100 mg at 07/02/252118 Anthropometrics: Ht Readings from Last 1 Encounters: 07/02/25 165.1 cm (5' 5 ) Wt Readings from Last 1 Encounters: 07/02/25 78.5 kg (173 lb) Usual Body Weight: 180 pounds Wt Readings from Last 10 Encounters: 07/02/25 78.5 kg (173 lb) 07/02/25 83 kg (183 lb) 06/13/25 83.4 kg (183 lb 12.8 oz) 06/05/25 83.6 kg (184 lb 3.2 oz) 05/29/25 86.6 kg (191 lb) 05/15/25 84.3 kg (185 lb 13.6 oz) 05/12/25 81.6 kg (180 lb) 05/11/25 81.6 kg (180 lb) 05/09/25 81.6 kg (180 lb) 04/04/25 83.9 kg (185 lb) Percent Usual Body Weight: 96% [place] Body Weight: 57 (07/02/25 1815) Percent [place] Body Weight: 138% Body mass index is 28.79 kg/m . BMI Category: Overweight (> or = 25.00) Food/Nutrition- Related History: Pt states that she ate some scrambled eggs this a.m., but they didn't sit very well . Pt states that she ordered chicken noodle soup for lunch. Episode of vomiting noted after lunch, diet changed to Clear Liquid Dietary Orders (From admission, onward) Start Ordered 07/03/25 1308 Adult diet Clear Liquid Diet effective now Question: Diet Type: Answer: Clear Liquid 07/03/25 1307 07/03/25 0722 Adult nutrition supplements Continuous Question Answer Comment Diet Type or Consistency: Regular Texture Select Supplement: Standard House Supplement 4 oz Supplement Frequency: TID 07/03/25 0721 Diet Intakes: Percent Meals Eaten (%): 75 (07/03/25 0930) Intake/ Output Last 24 hrs: Intake/Output Summary (Last 24 hours) at 07/03/2025 1428 Last data filed at 07/03/2025 0930 Gross per 24 hour Intake 240 ml Output 900 ml Net -660 ml Oral Supplemental Intake/ Acceptance: Ensure Compact changed to Ensure Clear TID Nutrition Education Needs: No Comments: pt denies need Estimated Needs Based on Comparative Standards: Estimated Energy Needs: 7109-3258 kcals daily. Method and weight used: 25-30 kcal/kg IBW Estimated Protein Needs: 68-114 grams daily. Method and weight used: 1.2-2 g protein/kg IBW Estimated Fluid Needs: 8554-6735 ml daily. Method weight used: 1 ml/kcal Comments: floor needs Malnutrition Status: Malnutrition Present: No Severity of Protein Calorie Malnutrition: n/a NUTRITION DIAGNOSIS: Intake Diagnosis: Predicted suboptimal energy intake (NI 1.4) related to intractable n/v as evidenced by pt vomited after lunch, diet changed to Clear Liquid which is not adequate to meet estimated nutritional needs. Nutrition Prescription: Clear Liquid diet ordered after episode of vomiting noted after pt ate lunch. Changed nutritional supplements to Ensure Clear TID as Clear Liquid diet inadequate to meet estimated protein and kcal needs. Pt told show card writer that Breakfast did not sit well with her either. Pt with h/o Type 2 DM, pt stated last A1c from Endocrinology office was below 7%, pt wears a Dex Com CGM. Pt's BG ranging from 99-204, Humalog ssc ac and hs ordered, pt reports taking Levemir 20 units and Humalog ssc ac at home. Notified CORPORATE STRATEGIST of home Levemir dose as not on med rec, ordered Lantus 10 units to start tonight. NUTRITION INTERVENTIONS: Meals & snacks: Clear liquid diet Supplements (medical food, vitamin or mineral): Ensure Clear TID Coordination of nutrition care: discussed insulin needs with CORPORATE STRATEGIST Coordination of nutrition care: reviewed home insulin regimen with pt Goals: Tolerates oral intake RECOMMENDATIONS: Continue Clear Liquid diet, will add Ensure Clear TID. Advance diet to Regular as tolerance permits. Will monitor PO tolerance as diet advanced. Nutrition Monitoring and Evaluation: Fluid/Beverage Intake (1.2.1), Food Intake (1.2.2), and Weight Change, Lab Values and POC Waleska Ball, RD, LD, CDCES documented in this encounter [facility] 07-03-2025 Progress note Formatting of t his note is different from the original. Occupational Therapy Evaluation (co-eval with PT for patient safety) Discharge Recommendations for Safe Patient Transition OT Discharge Disposition Recommendation: Post acute - moderate OT Post Acute Moderate Rehab Needs: Recommend moderate intensity rehab, Tolerate 1-2 hrs of therapy 3-5 days/wk, Subacute or chronic functional impairment Current Impairments Informing Therapy Recommendation: Ambulation status/safety, Fall risk, ADL status, Endurance level Patient Liaison Support for-: Mobility Deficits, ADL Deficits Therapy Plan Need for skilled Occupational Therapy to address deficits in ADL independence and functional mobility due to a status decline resulting from weakness. Past Medical History: Diagnosis Date Anemia Arthritis Asthma very mild, no inhaler use Cataract Dental disease Depression [place] Diabetes mellitus type 2, controlled [place] Encephalitis Foot fracture, left GERD (gastroesophageal reflux disease) Heart murmur HLD (hyperlipidemia) Hypertension Incontinence Injury of back Insulin dependent diabetes mellitus Kidney failure STAGE 4 Lumbar spondylolysis Murmur Obesity CHELSEA (obstructive sleep apnea) no machine Peptic ulceration Peripheral vascular disease Shortness of breath [place] 02/27/2024 TIA (transient ischemic attack) Upper respiratory infection UTI (urinary tract infection) Visual impairment Wears dentures Past Surgical History: Procedure Laterality Date BREAST BIOPSY Right 03/01/2023 ULT BIOPSY CATARACT EXTRACTION SECTION SECTION 03/14/1974 EGD N/A 10/17/2019 Performed by Sarai Bell DO at [facility] H-PERCUTANEOUS CORONARY INTERVENTION HYSTEROSCOPY DILATION CURETTAGE MYOSURE N/A 01/29/2021 Performed by Jv Briones MD at [facility] INJECTION BLOCK EPIDURAL CAUDAL STEROID N/A 08/14/2022 Performed by Arnulfo Gonzalez MD at [facility] INJECTION BLOCK EPIDURAL CAUDAL STEROID N/A 06/06/2021 Performed by Arnulfo Gonzalez MD at [facility] INJECTION BLOCK EPIDURAL CAUDAL STEROID N/A 04/25/2021 Performed by Arnulfo Gonzalez MD at [facility] INJECTION CAUDAL EPIDURAL WITH CATHETER, STEROID N/A 05/03/2020 Performed by Arnulfo Gonzalez MD at [facility] INJECTION CAUDAL EPIDURAL WITH CATHETER, STEROID N/A 11/24/2019 Performed by Arnulfo Gonzalez MD at [facility] INJECTION CAUDAL EPIDURAL WITH CATHETER, STEROID N/A 04/21/2019 Performed by Arnulfo Gonzalez MD at [facility] MEDIAL BRANCH NERVE BLOCK Bilateral L 4/5, 5/1 Bilateral 08/18/2019 Performed by Arnulfo Gonzalez MD at [facility] INJECTION MEDIAL BRANCH NERVE BLOCK Bilateral L 4/5, 5/1 Bilateral 06/23/2019 Performed by Arnulfo Gonzalez MD at [facility] INJECTION STEROID EPI 1 WITH SEDATION Right L 4, 5 NR Right 03/17/2019 Performed by Arnulfo Gonzalez MD at [facility] INJECTION STEROID EPI 1 WITH SEDATION: right L45 nroot Right 08/15/2018 Performed by Arnulfo Gonzalez MD at [facility] LEFT L4, AND 5 NERVE ROOT INJECTION 2 OF 2 Left 07/22/2018 Performed by Arnulfo Gonzalez MD at [facility] LEFT L4, AND L5 NERVE ROOT 1 OF 2 Left 07/04/2018 Performed by Arnulfo Gonzalez MD at [facility] SHUNT INSERTION TONSILLECTOMY AGE 4 Transcutaneous aortic valve replacement/Transfemoral/Kwan N/A 08/17/2023 Performed by Chava Norris MD at [facility] C[facility] CATH LAB[facility] Valvuloplasty aortic N/A 06/03/2023 Performed by Chava Norris MD at [facility] CATH LABS 6 Clicks: Daily Activity Putting on and taking off regular lower body clothing?: A lot Bathing (including washing, rinsing, drying)?: A lot Toileting, which includes using toilet, bedpan or urinal?: A lot Putting on and taking off regular upper body clothing?: A little Taking care of personal grooming such as brushing teeth?: A little Eating meals?: None Scoring Daily Activity Raw Score: 16 CMS G Code Modifier: CK' OT Treatment/Interventions: Functional transfer training, UE strengthening/ROM, ADL retraining, Balance OT Frequency: Other (comment) (2-4x week) OT Duration: 10 days Assessment Patient Assessment Therapy Problem List: Decreased ADL status, Decreased balance, Decreased endurance, Decreased high-level ADLs, Decreased mobility, Decreased safe judgement during ADL, Decreased self-care trans, Decreased UE strength Patient Response to Treatment: Tolerated evaluation without adverse reaction Mood/Affect: Appropriate for circumstances Rehab Prognosis: Good, With continued OT status post acute discharge Visit RN Communication: Yes Medical Record Reviewed: Yes OT Type of Visit: Evaluation (co-eval with PT for patient safety) Precautions Activity: up as macario, ok to see per Cesilia PIERRE Equipment: RW, nonskid socks, gait belt Weight Bearing Status: FWB Telemetry/Stave Grader: Yes Oxygen Used: Room air Other: Fall risk Pain Assessment Pain Assessment: No/denies pain Home Living Type of Home: House Home Layout: One level, Ramped entrance Stairs to Enter: (Ramp) Hand Rails: None Stairs in Home: 0 Hand Rails in Home: None Bathroom Shower/Tub: Tub/shower unit Bathroom Toilet: Raised Bathroom Equipment: Grab bars in shower, Hand-held shower, Shower chair, Grab bars around toilet Bathroom Accessibility: Accessible via wheelchair Home Equipment: Wheelchair-manual, Rolling walker, Hospital bed, Other (Comment) (rollator, purewick, looking to get a lift chair) Prior Function Lives With: Son, Daughter Receives Help From: Family, Home health Level of Mobility: Independent with ADLs and functional transfers or gait Homemaking Assistance: Needs assistance Other: Pt reports that prior to a few weeks ago she was ind with mobility using a walker and her ADLs. Since fracturing her hip in April, pt has had a decline in her mobility. Pt states she is living with her daugther and son, where her daughter assists with all stand pivot transfers and all ADLs. Pt notes she is able to wash where she can reach for bathing and that she can propel herself in her w/c in the home. Daughter completes all house hold tasks and provides transportation. States groceries get delivered. ADL / IADL Grooming Assistance: Min assist Bathing/Showering Assistance: Max assist Toilet/Commode Assistance: Max assist UE Dressing Assistance: Min assist LE Dressing Assistance: Max assist Footwear Assistance: Mod assist Other: Pt's ability to complete ADLs is based on professional observation and clinical judgement, based on her ability to complete bed mobility, balance, strength and transfer. Home Management - IADL Other: Pt's ability to complete ADLs is based on professional observation and clinical judgement, based on her ability to complete bed mobility, balance, strength and transfer. Hearing / Speech / Vision Hearing: Within Functional Limits Speech: Within Functional Limits Current Vision: Wears glasses all the time Visual History: Cataracts, Surgical intervention Cognition Orientation Level: Oriented to person, Oriented to place, Oriented to month, Disoriented to situation Sensation Overall Sensation Status: Within Functional Limits Bed Mobility Supine to Sit: Min assist, Right, Verbal cues Other: vc given for sequencing with HOB elevated and cue to reach for bed rail. Min assist given to complete sit with upper body. Pt then able to slowly scoot herself to EOB. Transfers Sit to Stand: Min assist Stand to Sit: Min assist Other: cues given to push from the bed to stand up to walker. Pt taking increased time to due to not feeling well per patient. Notes she began getting dizzy from sitting at EOB and her back was hurting her. Gait Gait Assistance: Min assist (+2) Assistive Device: Rolling walker Gait Distance: 2' x2 from bed to chair back to bed to assess safety for her stand pivots that she normally completes at home. Pt moving slow and is quite unsteady on her feet. Pt noted that she is moving worse than she typically does. Limiting Factors to Gait: Fatigue, Weakness, Decreased safety Balance Sitting Balance: Static: Good Sitting Balance: Dynamic: Poor Standing Balance: Static: Poor Standing Balance: Dynamic: Poor Other: pt able to sit at EOB without LOB and no UE support. RUE Assessment: Exceptions to WFL RUE Strength RUE Overall Strength: Within Functional Limits - able to perform ADL tasks with strength (4-/5 grossly) LUE Assessment: Exceptions to WFL LUE Strength LUE Overall Strength: Within Functional Limits - able to perform ADL tasks with strength (4-/5 grossly) Activity Tolerance Endurance: Tolerates <30 minutes activity WITHOUT vital sign changes Plan Occupational Therapy Care Plan Occupational Therapy Care Plan (Active) Template: OT - Occupational Therapy Problem: Other (Customize) Dates: Start: 07/03/25 Disciplines: OT Goal: Improve Dates: Start: 07/03/25 Expected End: 07/12/25 Description: Goal Description: Pt will complete simple upper body ADLs with Min assist to increase independence. Disciplines: OT Problem: Standing Balance Dates: Start: 07/03/25 Disciplines: OT Goal: Improve balance to fair Dates: Start: 07/03/25 Expected End: 07/12/25 Description: During standing ADLs and functional transfers to increase safety. Disciplines: OT Problem: Strength Dates: Start: 07/03/25 Disciplines: OT Goal: Improve strength Dates: Start: 07/03/25 Expected End: 07/12/25 Description: Of extremity/ location: B UEs To facilitate: increased ability to complete ADLs with transfers. Disciplines: OT Problem: Transfers Dates: Start: 07/03/25 Disciplines: OT Goal: Patient will perform transfers with Contact Guard Dates: Start: 07/03/25 Expected End: 07/12/25 Description: Goal Description: +1 with least restrictive device to increase independence. Disciplines: OT Occupational Therapy Care Plan (Resolved) There are no resolved problems. 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 Physical Therapy Evaluation (co-eval w/ OT for increased pt safety d/t impaired mobility) Discharge Recommendations for Safe Patient Transition PT Discharge Disposition Recommendation: Post acute - moderate PT Post Acute Moderate Rehab Needs: Recommend moderate intensity rehab, Tolerate 1-2 hrs of therapy 3-5 days/wk, Subacute or chronic functional impairment Current Impairments Informing Therapy Recommendation: Ambulation status/safety, Fall risk, ADL status, Endurance level Patient Liaison Support for-: Mobility Deficits, ADL Deficits Therapy Plan Need for skilled Physical Therapy to address deficits in functional mobility due to a status decline resulting from generalized weakness/decreased activity macario d/t intractable n/v. Past Medical History: Diagnosis Date Anemia Arthritis Asthma very mild, no inhaler use Cataract Dental disease Depression Diabetes [place] Diabetes mellitus type 2, controlled [place] Encephalitis Foot fracture, left GERD (gastroesophageal reflux disease) Heart murmur HLD (hyperlipidemia) Hypertension Incontinence Injury of back Insulin dependent diabetes mellitus Kidney failure STAGE 4 Lumbar spondylolysis Murmur Obesity CHELSEA (obstructive sleep apnea) no machine Peptic ulceration Peripheral vascular disease Shortness of breath Stroke [place] 02/27/2024 TIA (transient ischemic attack) Upper respiratory infection UTI (urinary tract infection) Visual impairment Wears dentures Past Surgical History: Procedure Laterality Date BREAST BIOPSY Right 03/01/2023 ULT BIOPSY CATARACT EXTRACTION SECTION SECTION 03/14/1974 EGD N/A 10/17/2019 Performed by Sarai Bell DO at [facility] H-PERCUTANEOUS CORONARY INTERVENTION HYSTEROSCOPY DILATION CURETTAGE MYOSURE N/A 01/29/2021 Performed by Jv Briones MD at [facility] INJECTION BLOCK EPIDURAL CAUDAL STEROID N/A 08/14/2022 Performed by Arnulfo Gonzalez MD at [facility] INJECTION BLOCK EPIDURAL CAUDAL STEROID N/A 06/06/2021 Performed by Arnulfo Gonzalez MD at [facility] INJECTION BLOCK EPIDURAL CAUDAL STEROID N/A 04/25/2021 Performed by Arnulfo Gonzalez MD at [facility] INJECTION CAUDAL EPIDURAL WITH CATHETER, STEROID N/A 05/03/2020 Performed by Arnulfo Gonzalez MD at [facility] INJECTION CAUDAL EPIDURAL WITH CATHETER, STEROID N/A 11/24/2019 Performed by Arnulfo Gonzalez MD at [facility] INJECTION CAUDAL EPIDURAL WITH CATHETER, STEROID N/A 04/21/2019 Performed by Arnulfo Gonzalez MD at [facility] MEDIAL BRANCH NERVE BLOCK Bilateral L 4/5, 5/1 Bilateral 08/18/2019 Performed by Arnulfo Gonzalez MD at [facility] INJECTION MEDIAL BRANCH NERVE BLOCK Bilateral L 4/5, 5/1 Bilateral 06/23/2019 Performed by Arnulfo Gonzalez MD at [facility] INJECTION STEROID EPI 1 WITH SEDATION Right L 4, 5 NR Right 03/17/2019 Performed by Arnulfo Gonzalez MD at [facility] INJECTION STEROID EPI 1 WITH SEDATION: right L45 nroot Right 08/15/2018 Performed by Arnulfo Gonzalez MD at [facility] LEFT L4, AND 5 NERVE ROOT INJECTION 2 OF 2 Left 07/22/2018 Performed by Arnulfo Gonzalez MD at [facility] LEFT L4, AND L5 NERVE ROOT 1 OF 2 Left 07/04/2018 Performed by Arnulfo Gonzalez MD at [facility] SHUNT INSERTION TONSILLECTOMY AGE 4 Transcutaneous aortic valve replacement/Transfemoral/Kwan N/A 08/17/2023 Performed by Chava Norris MD at [facility] CARD[facility]ATH [facility] Valvuloplasty aortic N/A 06/03/2023 Performed by Chava Norris MD at [facility] CARDIAC CATH LABS 6 Clicks: Basic Mobility Turning from your back to your side while in a flat bed without using bed rails?: A little Moving from lying on your back to sitting on side of flat bed without using bed rails?: A lot Moving to and from bed to a chair (including w/c)?: A lot Standing up from a chair using your arms (e.g. w/c or bedside chair)?: A little To walk in hospital room?: Total Climbing 3-5 steps with a railing?: Total Scoring 6 Clicks: Basic Mobility Raw Score: 12 CMS G Code Modifier: CL PT Treatment/Interventions: ADL retraining, Functional transfer training, LE strengthening/ROM, Endurance training, Patient/family training, Equipment eval/education, Balance, Bed mobility, Gait training, Coordination activities, Functional activities, Neuromuscular reeducation PT Frequency: Other (comment) (4-6x/week) PT Duration: 10 days Assessment Patient Assessment Therapy Problem List: Decreased ADL status, Decreased balance, Decreased endurance, Decreased high-level ADLs, Decreased mobility, Decreased gross motor, Decreased safe judgement during ADL, Decreased self-care trans, Decreased LE ROM, Decreased LE strength Patient Response to Treatment: Tolerated evaluation without adverse reaction Mood/Affect: Appropriate for circumstances Rehab Prognosis: Good, With continued PT status post acute discharge Visit RN Communication: Yes Medical Record Reviewed: Yes PT Type of Visit: Evaluation (co-eval w/ OT for increased pt safety d/t impaired mobility) Precautions Activity: up as macario, ok to see per Cesilia PIERRE Equipment: RW, nonskid socks, gait belt Weight Bearing Status: FWB Telemetry/Stave Grader: Yes Oxygen Used: Room air Other: Fall risk Pain Assessment Pain Assessment: No/denies pain Home Living Type of Home: House Home Layout: One level, Ramped entrance Stairs to Enter: Ramp Hand Rails: None Stairs in Home: 0 Hand Rails in Home: None Bathroom Shower/Tub: Tub/shower unit Bathroom Toilet: Raised Bathroom Equipment: Grab bars in shower, Hand-held shower, Shower chair, Grab bars around toilet Bathroom Accessibility: Accessible via wheelchair Home Equipment: Wheelchair-manual, Rolling walker, Hospital bed, Other (Comment) (Rollator, Purewick; wants/looking into a lift chair) Prior Function Lives With: Son, Daughter Receives Help From: Family, Home health (home therapy) Level of Mobility: Independent with ADLs and functional transfers or gait Homemaking Assistance: Needs assistance Other: Pt reports prior to approx 2-3 weeks ago she was ind w/ ADLs and functional mobility w/ use of walker. However, pt also had hip fracture (no surgical intervention) in April so her mobility has been limited. Notes currently her daughter A w/ stand pivot transfers and all ADLs. Pt notes she will A and wash what she can reach. Notes she can propel herself in w/c in house. Notes daughter does all household tasks, including meals, dishes, laundry, and transportation. Notes her son will A w/ food/meals for pt. Notes groceries get delivered. Hearing / Speech / Vision Hearing: Within Functional Limits Speech: Within Functional Limits Current Vision: Wears glasses all the time Visual History: Cataracts, Surgical intervention Cognition Orientation Level: Oriented to person, Oriented to place, Oriented to month, Disoriented to situation (Oriented to year) Sensation Overall Sensation Status: Within Functional Limits (denies sensation deficits) Bed Mobility Supine to Sit: Min assist, Right Other: HOB elevated, use of rail; vc/tc to walk legs to edge and use rail for support to pull herself up; pt using rail and therapist's hand to pull herself towards edge w/ trunk support also provided for safety Transfers Sit to Stand: Min assist Stand to Sit: Min assist Other: vc for optimal body/LE alignment and sequencing for easier transfer technique Gait Pattern: Decreased diana, R Decreased foot clearance, L Decreased foot clearance, Forward trunk Gait Assistance: Min assist (+2 for safety) Assistive Device: Rolling walker Gait Distance: 2' x2 bed to chair and back, w/ vc for sequencing and A w/ RW management to ensure safety w/ ADLs/self-care tasks upon eventual return home. Limiting Factors to Gait: Fatigue, Weakness, Decreased safety 2 Turns: Not attempted d/t safety concerns Balance Sitting Balance: Static: Good Sitting Balance: Dynamic: Poor Standing Balance: Static: Poor Standing Balance: Dynamic: Poor Other: Pt able to sit EOB unsupported but unable to reach for item w/o lateral deviation, thus requiring A. No LOB w/ activity today. RUE Assessment: (defer to OT) LUE Assessment: (defer to OT) RLE Assessment: Exceptions to WFL RLE Strength RLE Overall Strength: Deficits (3+/5 hip, 5-/5 to 4/5 knee, 4+/5 to 5/5 ankle; grossly) LLE Assessment: Exceptions to WFL LLE Strength LLE Overall Strength: Deficits (2+/5 hip, 4+/5 knee, 4/5 to 4+/5 ankle; grossly) Activity Tolerance Endurance: Tolerates <30 minutes activity WITHOUT vital sign changes Plan Physical Therapy Care Plan Physical Therapy Care Plan (Active) Template: PT - Physical Therapy Problem: Gait Dates: Start: 07/03/25 Disciplines: PT Goal: Patient will perform gait with Stand By Assist Dates: Start: 07/03/25 Expected End: 07/12/25 Description: With__RW__,_25' x2___feet Goal Description: to reduce sedentary lifestyle and increase safety w/ home mobility for ADLs Disciplines: PT Problem: Standing Balance Dates: Start: 07/03/25 Disciplines: PT Goal: Other sitting and standing balance goal (customize) Dates: Start: 07/03/25 Expected End: 07/12/25 Description: Goal Description: pt to macario >5' of dynamic standing activity, including reaching out of CHENTE >10 in all directions, using 0-1 intermittent UE support, and no LOB, to demo increased ind w/ standing ADLs. Disciplines: PT Problem: Transfers Dates: Start: 07/03/25 Disciplines: PT Goal: Patient will perform transfers with Supervision Dates: Start: 07/03/25 Expected End: 07/12/25 Description: Goal Description: including bed mobility (HOB may be elevated, use of rail), to reduce fall risk w/ toileting/self-care tasks. Disciplines: PT Physical Therapy Care Plan (Resolved) There are no resolved problems. Principal Problem: Intractable nausea and vomiting Active Problems: 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 mellitus ([facility]) Chronic diastolic congestive heart failure ([facility]) Weakness Iron deficiency anemia [employer] [facility] 07-03-2025 Progress note Formatting of t his note is different from the original. 07/03/25 [id number] Patient Information Initial Pre-Hospitalization Assessment Completed? Completed Primary Caregiver Self Support System Family Members Discharge Planning Living Arrangements Alone Type of Residence Private residence Private Residence 1 story Can patient reside on one level? Yes Home Care Services Yes Type of Home Care Services Home PT Does The Patient Have Existing Home DME? Yes Existing Home DME Options Walker;Wheelchair Will the patient need DME at discharge? No, the patient has no home DME needs currently Income Information Income Information Retired/Pension/Social Security IP [...] Warm Handoff Complete Caregiver/Family Member Caregiver/Family Member Involved with Current Plan of Care No Caregiver/Family Member in Agreement with Current Plan of Care No Caregiver/Support System Limitations Caregiver/Support Systems Limitations (Check All That Apply) No Caregiver Needed Patient/Caregiver Goals Patient/Caregiver Goals Custodial Care Skilled [facility] Skilled Care (Short Term) Services Requested Patient expects to be discharged to: SNF Does the patient wish to have family/friend/caregiver involved in their discharge planning? No, the patient does not wish to have family/friend/caregiver involved in their discharge planning Discharge Disposition SNF SNF Name [facility] ([facility] [phone] Fax SNF Accepted? (referral sent) Does the patient need discharge transportation arranged? Yes Transportation Arranged Ambulance DC Planning Complete Discharge Milestones Yes DISCHARGE PLANNING NOTE CN met with patient at bedside. CN discussed therapy recommendations and recent hospital admission. Patient agreeable for SNF referral be sent to [facility] only. If [facility] unable to accept, patient would like to return home with [facility]. Patient is current with [facility]. Referral sent to [facility] and [facility]. Discharge plan: [facility] SNF vs Home with [facility] (resume services) [facility] declined due to bed availability. Patient gave CN [facility] as 2nd choice, reviewing/pending bed availability. Daughter at bedside, 2 more choices given. Referrals sent to [facility] [place] and [facility]. - Bethany Lucero RN 07/03/25 1:47 PM [facility] Plan of care note Problem: Pain Goal: Patient goal is pain score less than 4, able to rest, and participant in treatment plan as appropriate Description: INTERVENTIONS: 1. Encourage patient or legal benefits representative to report early pain and ask [...] per policy 9. Teach patient or legal benefits representative interventions for comforting Note: Evaluation of progress towards goal: Current medication regimen effective. Patient denie pain. Problem: Safety Goal: Patient will be injury free during hospitalization Description: INTERVENTIONS: 1. Assess patient's risk for falls and implement fall prevention plan of care per policy 2. Provide and maintain a safe environment 3. Proper use of double Identifiers 4. Medication administration using the 5 rights 5. Hand hygiene 6. Specimens are labeled at the bedside 7. Instruct patient/ patient benefits representative about use of safety devices 8. Include patient/ patient benefits representative in decisions related to safety Note: Evaluation of progress towards goal: Safety precautions in place. Problem: Infection Goal: Absence of infection during [...] hygiene technique. 7. Identify and instruct patient/patient benefits representative in use of appropriate isolation precautions for identified infection/symptoms. 8. Provide and discuss with patient/patient benefits representative on educational MDRO sheet. 9. Encourage and monitor nutritional status daily and consult joist setter if indicated. 10. Implement neutropenic guidelines as needed. Note: Evaluation of progress towards goal: Standard precautions in place. Problem: Knowledge Deficit Goal: Patient/patient benefits representative demonstrates understanding of disease process, treatment plan, medications, and discharge instructions Description: INTERVENTIONS 1. Complete learning assessment and assess knowledge base 2. Provide teaching at level of understanding 3. Provide teaching via preferred learning method(s) Note: Evaluation of progress towards goal: POC discussed with pt Problem: Discharge Planning Goal: Discharge to post-acute [...] Arrange for needed discharge transportation as appropriate Note: Evaluation of progress towards goal: initiated Problem: Inadequate Airway Clearance Goal: Patient will [...] deep breathe; encourage incentive spirometer if indicated Note: Evaluation of progress towards goal: monitor Problem: Inadequate Breathing Pattern Goal: Patient will achieve/maintain normal respiratory rate/effort Description: Patient's goal is: INTERVENTIONS 1. Assess and monitor respiratory rate, effort, breathing pattern, and oxygenation 2. Monitor patient for restlessness, anxiety, air hunger 3. Assess physical activity tolerance 4. Assess tobacco history; ask, advise, and refer as appropriate 5. Collaborate with interdisciplinary team and initiate plans/interventions as needed Note: Evaluation of progress towards goal: monitor Goal: Patient will maintain effective ventilation Description: [...] to administer medications/treatments 9. Monitor lab/diagnostic results Note: Evaluation of progress towards goal: monitor Problem: Anxiety Goal: Anxiety is at manageable [...] Collaborate with ancillary departments 14. Include patient/patient benefits representative in decisions related to anxiety Note: Evaluation of progress towards goal: monitor Problem: Activity Intolerance/Impaired Mobility Goal: Mobility/activity is [...] Reposition patient 9. Ensure adequate rest/sleep time Note: Evaluation of progress towards goal: monitor Problem: Inadequate Coping Goal: Demonstrates and verbalizes [...] care 6. Collaborate with pastoral/spiritual care, social media content specialist, mental health counselor as needed. 7. Instruct patient on diversional activities such as physical activity, distraction, and deep breathing exercises to assist with coping 8. Involve patient's benefits representative in care Note: Evaluation of progress towards goal: monitor Problem: Glucose Imbalance Goal: Clinical indication of glucose balance is achieved Description: Patient's goal is: INTERVENTIONS 1. Monitor blood glucose levels as ordered 2. Administer medications as ordered 3. Notify physician of ineffective treatment plan Note: Evaluation of progress towards goal: monitor Goal: Patient's discharge needs are met Description: Patient's goal is: INTERVENTIONS 1. Assess patient for self-management skills 2. Encourage participation in diabetes management 3. Identify potential discharge barriers on admission and throughout hospital stay 4. Involve patient/S.O. in discharge planning process 5. Communicate referral to patient experience coordinator as appropriate 6. Communicate referral to joist setter as appropriate 7. Collaborate with case management/social media content specialist for discharge needs Note: Evaluation of progress towards goal: monitor Problem: Potential for Compromised Skin Integrity Goal: [...] and initiate plans and interventions as needed Note: Evaluation of progress towards goal: monitor Goal: Patient's nutritional intake is adequate Description: [...] supplement as ordered 13. Collaborate with clinical joist setter 14. Include patient/ patient's benefits representative in decisions related to nutrition Note: Evaluation of progress towards goal: monitor Problem: Urinary Incontinence Goal: Perineal skin integrity [...] and initiate plans and interventions as needed Note: Evaluation of progress towards goal: monitor [facility] 07-03-2025 History and physical note Images from the original note were not included. [facility] INTERNAL MEDICINE [facility] - [address] [place] [id number] Hospital Medicine History & Physical Patient: Cuca Dee Date of : 1945 Room: PCP: KAIDEN Hopkins Admission date: 07/02/2025 5:45 PM Encounter date: 07/03/25 Hospital Day: 2 SUBJECTIVE Cuca Dee is a 80 y.o. female who presents with complaints of vomiting for 6 days generalized weakness. Patient was discharged from another local hospital on June 27 where she was therefore Enterococcus UTI. Patient was also hypercalcemic with known breast cancer and altered mentation. Patient was discharged home on Augmentin unclear she was taking it and is a poor historian. He lives with daughter and patient is currently wheelchair-bound does have chronic respiratory failure and is on 3 L of oxygen around the clock and SpO2 is within normal limits. Vitals within normal limits is noted to have an abrasion on the bridge of her nose and is frail chronically ill also noted abrasion to right knee does have some confusion on what year it is. In the ER include normal white blood cell count hemoglobin 10.3 hematocrit 31.1 this is her baseline. Sodium 133 chloride 96 glucose 131 creatinine 1.17 BUN 23 which is also her baseline GFR 47 magnesium 1.4 lipase within normal limits initial troponin 16 repeated 1 hour later 14 blood cultures x2 pending lactate within normal limits. Urinalysis done moderate bilirubin 40 ketones 30 mg/dL urine culture is pending. Imaging in the ER include a chest x-ray which was negative. CT abdomen and pelvis which shows a large left adnexal cyst increased in size since prior evaluation severe changes to right hip possible prior intertrochanteric fracture that did not have surgical fixation and small to moderate size hiatal hernia. CT brain Ventriculomegaly is stable with a right-sided frontal approach ventriculostomy appearing stable. No acute intracranial pathology. Pelvic ultrasound The patient could not tolerate transvaginal imaging which severely compromises the sensitivity examination. There is a 9.2 cm cystic mass in the left adnexa however cannot be said with certainty whether this is ovarian in nature. Blood flow is documented along the periphery of this lesion, however, cannot be said with certainty whether it is flow within the ovarian tissue. EKG sinus rhythm left bundle branch block Patient will be admitted for generalized weakness and low magnesium. Allergies: Patient has no known allergies. Prior to Admission medications Medication Sig Start Date End Date Taking? Authorizing Provider acetaminophen (TYLENOL) 500 mg tablet Take 2 tablets (1,000 mg total) by mouth every 6 (six) hours as needed for pain. Yes Not In System Ref Prov cyanocobalamin 1000 MCG tablet Take 1 tablet (1,000 mcg total) by mouth in the morning. 02/25/25 Yes Rosario Albright APRN-BARTOLO ferrous sulfate 325 (65 FE) MG tablet Take 1 tablet (325 mg total) by mouth daily with breakfast. 05/16/25 Yes KAIDEN Hopkins furosemide (LASIX) 20 mg tablet Take 1 tablet (20 mg total) by mouth daily. 05/16/25 Yes KAIDEN Hopkins insulin lispro (HumaLOG) 100 unit/mL [...] daily 01/25/25 01/20/26 Yes Casimiro Muñoz MD mirtazapine (REMERON) 7.5 mg tablet Take 1 tablet (7.5 mg total) by mouth nightly. 01/22/25 Yes KAIEDN Werner sertraline (ZOLOFT) 100 mg tablet Take 1 tablet (100 mg total) by mouth in the morning. 01/28/25 Yes Not In System Ref Prov traZODone (DESYREL) 100 mg tablet TAKE 1 TABLET BY MOUTH EVERY DAY AT NIGHT Patient taking differently: Take 1 tablet (100 mg total) by mouth nightly. TAKE 1 TABLET BY MOUTH EVERY DAY AT NIGHT 11/28/24 Yes KAIDEN Werner lidocaine (SALONPAS) 4 % Place 1 patch on the skin daily. 05/29/25 Giovanny Penny DO Past Medical History: Patient has a past medical history of Anemia, Arthritis, Asthma, Cataract, Dental disease, Depression, [place] Diabetes mellitus type 2, controlled [place] Encephalitis, Foot fracture, left, GERD (gastroesophageal reflux disease), Heart murmur, HLD (hyperlipidemia), Hypertension, Incontinence, Injury of back, Insulin dependent diabetes mellitus, Kidney failure, Lumbar spondylolysis, Murmur, Obesity, CHELSEA (obstructive sleep apnea), Peptic ulceration, Peripheral vascular disease, Shortness of breath, [place] (02/[place]), TIA (transient ischemic attack), Upper respiratory [...] does not use drugs. Review of Systems Constitutional: Positive for decreased appetite and malaise/fatigue. Negative for chills, diaphoresis and fever. HENT: Negative for congestion. Cardiovascular: Negative for chest pain, dyspnea on exertion, leg swelling and palpitations. Respiratory: Negative for cough, shortness of breath, sputum production and wheezing. Hematologic/Lymphatic: Bruises/bleeds easily. Skin: Negative for dry skin and poor wound healing. Musculoskeletal: Positive for arthritis. Negative for back pain and falls. Gastrointestinal: Positive for nausea. Negative for bloating, abdominal pain, dysphagia and vomiting. Genitourinary: Negative for bladder incontinence. Neurological: Positive for excessive daytime sleepiness and weakness. Negative for dizziness, paresthesias and tremors. Psychiatric/Behavioral: Negative for altered mental status and memory loss. OBJECTIVE BP 116/53 Pulse 71 Temp 36.9 C (98.4 F) (Temporal) Resp 16 Ht 165.1 cm (5' 5 ) Wt 78.5 kg (173 lb) LMP (LMP Unknown) SpO2 98% BMI 28.79 kg/m Temp: [36.3 C (97.4 F)-36.9 C (98.4 F)] 36.9 C (98.4 F) Pulse: [67-80] 71 Resp: [16] 16 BP: (110-134)/(53-79) 116/53 SpO2: [94 %-100 %] 98 % O2 Device: None (Room air) O2 Flow Rate (L/min): [0 L/min] 0 L/min Intake/Output Summary (Last 24 hours) at 07/03/2025 1655 Last data filed at 07/03/2025 0930 Gross per 24 hour Intake 240 ml Output 900 ml Net -660 ml Physical Exam Vitals (on RA) and nursing note reviewed. Constitutional: General: She is not in acute distress. Appearance: Normal appearance. She is ill-appearing (chronic). She is not toxic-appearing or diaphoretic. HENT: Head: Normocephalic and atraumatic. Nose: Nose normal. Mouth/Throat: Mouth: Mucous membranes are moist. Eyes: Pupils: Pupils are equal, round, and reactive to light. Cardiovascular: Rate and Rhythm: Normal rate and regular rhythm. Pulses: Normal pulses. Heart sounds: Murmur heard. Pulmonary: Effort: Pulmonary effort is normal. No respiratory distress. Breath sounds: Rales (bases left > right) present. No wheezing. Abdominal: General: Bowel sounds are normal. There is no distension. Palpations: Abdomen is soft. Tenderness: There is no abdominal tenderness. Musculoskeletal: Cervical back: Normal range of motion and neck supple. Right lower leg: No edema. Left lower leg: No edema. Skin: General: Skin is warm and dry. Capillary Refill: Capillary refill takes 2 to 3 seconds. Coloration: Skin is pale. Neurological: Mental Status: She is alert and oriented to person, place, and time. Mental status is at baseline. Sensory: No sensory deficit. Motor: Weakness (generalizd) present. Gait: Gait normal. Psychiatric: Mood and Affect: Mood normal. Behavior: Behavior normal. Thought Content: Thought content normal. Judgment: Judgment normal. Medications Scheduled: cefTRIAXone (ROCEPHIN) IV, 1,000 mg, intravenous, Q24H cyanocobalamin, 1,000 mcg, oral, Daily enoxaparin (LOVENOX) injection, 40 mg, subcutaneous, Daily ferrous sulfate, 325 mg, oral, BID with meals insulin glargine, 10 Units, subcutaneous, Nightly insulin lispro, 1-4 Units, subcutaneous, Nightly insulin lispro, 2-10 Units, subcutaneous, TID with meals magnesium oxide, 400 mg, oral, Daily polyethylene glycol, 17 g, oral, Daily sertraline, 100 mg, oral, Daily sodium chloride, 3 mL, intravenous, Q12H DALTON traZODone, 100 mg, oral, Nightly Infusions: dextrose 5 % in water, 100 mL/hr dextrose 5 % in water, 100 mL/hr sodium chloride 0.9 %, 20 mL/hr sodium chloride 0.9 %, 50 mL/hr, Last Rate: 50 mL/hr (07/02/252047) As Needed: acetaminophen alum-mag hydroxide-simeth calcium gluconate calcium gluconate calcium gluconate dextrose dextrose dextrose 5 % in water dextrose 5 % in water dextrose 50 % in water (D50W) dextrose 50 % in water (D50W) glucagon (human recombinant) glucagon (human recombinant) magnesium sulfate magnesium sulfate ondansetron promethazine OR promethazine sennosides-docusate sodium sodium phosphate IV OR sodium phosphate IV - central line OR sod phos di, mono-K phos mono sodium chloride sodium chloride sodium chloride 0.9 % Allergies: Patient has no known allergies. Labs Recent Results (from the past 24 hours) Phosphorus Collection Time: 07/02/25 6:44 PM Result Value Ref Range PHOSPHORUS 3.0 2.4 - 4.9 mg/dL Bedside Glucose *Place/Obtain serum glucose if >500 per glucometer. Collection Time: 07/02/25 7:08 PM Result Value Ref Range Bedside Glucose (POC) 99 65 - 99 mg/dL Comprehensive metabolic panel Collection Time: 07/03/25 5:22 AM Result Value Ref Range SODIUM 132 (L) 134 - 146 mmol/L POTASSIUM 3.8 3.5 - 5.0 mmol/L CHLORIDE 98 98 - 109 mmol/L CARBON DIOXIDE 25 22 - 32 mmol/L ANION GAP 9 5 - 15 mmol/L BLOOD UREA NITROGEN 18 5 - 27 mg/dL CREATININE 1.17 (H) 0.40 - 1.00 mg/dL GLUCOSE 103 (H) 65 - 99 mg/dL CALCIUM 9.0 8.5 - 10.5 mg/dL TOTAL PROTEIN 7.0 6.0 - 8.0 g/dL ALBUMIN 3.2 3.2 - 5.3 g/dL ALKALINE PHOSPHATASE 115 39 - 130 U/L AST 21 <=41 U/L ALT 14 <=31 U/L BILIRUBIN,TOTAL 0.9 0.3 - 1.2 mg/dL EGFR Non-Race Dependent 47 (L) >=60 ml/min/1.73sq.m Magnesium Collection Time: 07/03/25 5:22 AM Result Value Ref Range MAGNESIUM 1.8 1.8 - 2.6 mg/dL Phosphorus Collection Time: 07/03/25 5:22 AM Result Value Ref Range PHOSPHORUS 3.1 2.4 - 4.9 mg/dL CBC auto differential Collection Time: 07/03/25 5:22 AM Result Value Ref Range WBC 6.2 4 - 11 x10E9/L RBC Count 3.43 (L) 3.8 - 5.2 X10E12/L Hemoglobin 9.2 (L) 11.7 - 15.5 g/dL Hematocrit 27.6 (L) 35 - 47 % MCV 81 80 - 100 fL MCH 26.9 (L) 27 - 34 pg MCHC 33.5 32 - 36 g/dL RDW 17.3 (H) 11.5 - 15 % Platelet Count 314 150 - 450 X10E9/L MPV 8.3 7 - 12 fL Neutrophils % 61.2 % Lymphocytes % 25.8 % Monocytes % 11.0 % Eosinophils % 1.6 % Basophils % 0.4 % Neutrophils Absolute (A) 3.8 1.5 - 6.6 10*3/uL Lymphocytes Absolute 1.6 1.0 - 3.5 10*3/uL Monocytes Absolute 0.7 0.0 - 0.9 10*3/uL Eosinophils Absolute 0.1 0.0 - 0.4 10*3/uL Basophils Absolute 0.0 0.0 - 0.2 10*3/uL Differential Type AUTOMATED DIFFERENTIAL Bedside Glucose *Place/Obtain serum glucose if >500 per glucometer. Collection Time: 07/03/25 7:58 AM Result Value Ref Range Bedside Glucose (POC) 125 (H) 65 - 99 mg/dL Bedside Glucose *Place/Obtain serum glucose if >500 per glucometer. Collection Time: 07/03/25 11:41 AM Result Value Ref Range Bedside Glucose (POC) 204 (H) 65 - 99 mg/dL Radiology Ultrasound pelvic with duplex Result Date: 07/02/2025 Narrative: CLINICAL INFORMATION: Evaluate for Ovarian Torsion. TECHNIQUE: Real-time transabdominal sonographic evaluation of the pelvis was performed with villarreal scale and color flow imaging. The patient could not tolerate transvaginal imaging which severely compromises sensitivity the examination. Real time villarreal scale, color flow imaging and duplex spectral Doppler waveform analysis evaluation was performed of the major arterial inflow and venous outflow structures of the ovaries with arterial and venous spectral waveforms obtained and reviewed in view of the clinical history of Evaluate for Ovarian Torsion . Duplex spectral Doppler document arterial and venous spectral waveforms documented within the major arterial inflow and venous outflow of both ovaries. Arterial and venous Doppler duplex spectral waveforms were evaluated. COMPARISON: Comparison made to a CT abdomen pelvis performed earlier in the day FINDINGS: There is partial visualization of a 9.2 x 8.1 x 8.7 cm partially cystic mass in the left adnexa, felt to represent the abnormality described previous CT examination. There is blood flow along the periphery of this lesion, however, it cannot be said with certainty whether the flow is in the ovarian tissue. The right ovary was not visualized due to overlying bowel gas. There is no free fluid in the cul-de-sac. IMPRESSION: * The patient could not tolerate transvaginal imaging which severely compromises the sensitivity examination. * There is a 9.2 cm cystic mass in the left adnexa however cannot be said with certainty whether this is ovarian in nature. Blood flow is documented along the periphery of this lesion, however, cannot be said with certainty whether it is flow within the ovarian tissue. Finalized by Giovanny Zheng MD on 07/02/2025 1:[address] brain without contrast Result Date: 07/02/2025 Narrative: CT HEAD WITHOUT IV CONTRAST CLINICAL STATEMENT: confusion, fall? signs of head injury Comparison study: 05/14/2025 TECHNIQUE: Axial views were obtained at 2.5 mm interval through the head without IV contrast. Automatic dose exposure reduction technique utilized. FINDINGS: The midline structures are not deviated. The ventricular system is prominent as previously documented and is unchanged in appearance without progressive ventriculomegaly. There is no intraventricular hemorrhage. There is no transependymal flow of CSF noted on the study.. The villarreal and white matter show normal attenuation. The posterior fossa is unremarkable. No features of raised intracranial pressure.No intracranial bleed. The IACs are unremarkable. The cerebellopontine angles are unremarkable. The temporomandibular joints show no abnormality. The osseous structures in the skull base and in the calvarium show no definite abnormality. Note is made of a right-sided ventriculostomy with a right frontal approach that demonstrates no acute complication. Tip of this is located in the region of the right foramen of Monro. The orbits are lens replacements.. The paranasal sinuses are clear. The mastoid air cells are clear. IMPRESSION: Ventriculomegaly is stable with a right-sided frontal approach ventriculostomy appearing stable. No acute intracranial pathology. All CT scans at this facility use dose modulation, iterative reconstruction, and/or weight based dosing when appropriate to reduce radiation dose to as low as reasonably achievable. Finalized by Damien Golden MD on 07/02/2025 12:[address] abdomen and pelvis with contrast Result Date: 07/02/2025 Narrative: Study: CT abdomen and pelvis with contrast History:Vomiting UTI Protocol:CT abdomen and pelvis with contrast Contrast 100 mL Omnipaque 300 COMPARISON:06/03/2025 Findings: Lung bases:Normal Liver:Normal Spleen:Normal Gallbladder:Normal Bile ducts:No dilatation Pancreas:Normal Adrenals:Normal Kidneys:Small cysts in the right kidney. Kidneys are otherwise unremarkable Ureters:Normal Bladder:Normal Bowel:Small to moderate-sized hiatal hernia stomach unremarkable. Small bowel is nondilated. Mild large bowel dilatation with stool in the colon which could indicate constipation. No appendicitis or diverticulitis. Reproductive organs:Uterus is unremarkable. There is a complex pelvic cyst in the left adnexa contains calcifications possibly solid component somewhat thick clements and it is multilocular. Measures in aggregate approximately 9.4 x 6.5 cm it is increased significantly in size since previous study of 06/11/2025. [place]:No adenopathy Peritoneum:No free air or free fluid Retroperitoneum:No adenopathy Vessels: Atherosclerotic changes in the aorta no aneurysm Abdominal wall:WELD ENGINEER shunt tube Bones:Severe changes in the right hip possible prior intertrochanteric fracture which has not undergone fixation. IMPRESSION: * Large left adnexal cyst increased in size since previous examination pelvic ultrasound is recommended for further evaluation. * Severe changes in the right hip possible prior intertrochanteric fracture which has not undergone fixation. * Small to moderate-sized hiatal hernia stomach All CT scans at this facility use dose modulation, iterative reconstruction, and/or weight based dosing when appropriate to reduce radiation dose to as low as reasonably achievable. Finalized by Chester Parra MD on 07/02/2025 12:22 PM X-ray chest 1 view Result Date: 07/02/2025 Narrative: Single view chest History: Weakness and vomiting Comparison: X-ray 06/03/2025 Findings: Single portable view of the chest. Cardiomediastinal silhouette and pulmonary vasculature are within normal limits. Lungs and pleural space are clear. There is no pleural effusion or pneumothorax. Shunt catheter overlies right hemithorax. Impression: No acute cardiopulmonary process. Finalized by Jason Bryan on 07/02/2025 11:[address] abdomen and pelvis without contrast Result [...] Ryan Dominguez MD on 06/11/2025 2:23 AM X-ray chest 1 [...] History: Fatigue Comparison: X-ray 05/13/2025 Findings: Single portable view of the chest. Cardiomediastinal silhouette and pulmonary vasculature are within normal limits. Lungs and pleural space are clear. There is [...] appearing right hip lesser trochanteric avulsion fracture. HOSPITAL PROBLEM LIST Principal Problem: Intractable nausea and vomiting Active Problems: 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 mellitus [place] Chronic diastolic congestive heart failure [place] Weakness Iron deficiency anemia Adnexal mass ASSESSMENT & PLAN Generalized weakness Hx of right hip fracture 05/09 nonsurgical WBAT Acute cystitis without hematuria -PT OT to see -speech therapy to see -will cover for UTI until cx comes back with Rocephin N/v - continue with scopolamine - okay with p.r.n. antiemetics - downgrade diet to clear liquids Hypomagnesemia -supplement and replace as well as recheck Chronic respiratory failure Oxygen dependent at home 2 L -supportive care not in acute exacerbation -encourage cough and deep breathing Diabetes mellitus type 2 without long-term insulin use controlled Poor intake -a.c. and HS Accu-Cheks with sliding scale coverage -dietitian can follow -fluids for one day Hypertension Hyperlipidemia -continue home medications -124/72 heart rate 67 Stage IIIB CKD -hold off on Lasix for now since she has had poor intake -strict intake and output daily weights -avoid nephrotoxic medication Obstructive sleep apnea -supposed to wear CPAP encourage as able to tolerate History of aortic valve replacement 2022 Chronic Diastolic CHF not in failure -supportive care -hold lasix -strict I&O's -negative balance 900ml Sepsis suspected, no-not clinically evident at this time. Chart reviewed. Admission orders placed. Home medications reconciled. DVT/VTE prophylaxis: SCD and heparin SQ. GI prophylaxis: not indicated. PT/OT/ST to evaluate and treat. DC planning: Full code, will likely need PT/OT Medically Ready for Discharge: Anticipated tomorrow when we get placement [facility] first choice KAIDEN Magana 07/03/2025 4:55 PM [facility] 7AM-7PM & 7PM-7AM: EpicChat or page through On-[employer]. KAIDEN Magana 07/03/25 0868 Physician Attestation I, Felix Hallman MD, personally [...] with the plan as noted. Patient with known left adnexal mass, iron deficiency anemia, CHF was admitted with increased generalized weakness and nausea and vomiting. On IV normal saline hold Lasix monitor CBC, CMP. CT abdominal pelvis shows left adnexal mass patient is to follow up with lane attendant Oncology as outpatient [facility] 07-03-2025 History and physical note Images from the original note were not included. [facility] INTERNAL MEDICINE [facility] - MED SURG [address] [place] [phone] Hospital Medicine History & Physical Patient: Cuca Dee Date of : 1945 Room: [facility] PCP: KAIDEN Hopkins Admission date: 07/02/2025 5:45 PM Encounter date: 07/03/25 Hospital Day: 2 SUBJECTIVE Cuca Dee is a 80 y.o. female who presents with complaints of vomiting for 6 days generalized weakness. Patient was discharged from another local hospital on June 27 where she was therefore Enterococcus UTI. Patient was also hypercalcemic with known breast cancer and altered mentation. Patient was discharged home on Augmentin unclear she was taking it and is a poor historian. He lives with daughter and patient is currently wheelchair-bound does have chronic respiratory failure and is on 3 L of oxygen around the clock and SpO2 is within normal limits. Vitals within normal limits is noted to have an abrasion on the bridge of her nose and is frail chronically ill also noted abrasion to right knee does have some confusion on what year it is. In the ER include normal white blood cell count hemoglobin 10.3 hematocrit 31.1 this is her baseline. Sodium 133 chloride 96 glucose 131 creatinine 1.17 BUN 23 which is also her baseline GFR 47 magnesium 1.4 lipase within normal limits initial troponin 16 repeated 1 hour later 14 blood cultures x2 pending lactate within normal limits. Urinalysis done moderate bilirubin 40 ketones 30 mg/dL urine culture is pending. Imaging in the ER include a chest x-ray which was negative. CT abdomen and pelvis which shows a large left adnexal cyst increased in size since prior evaluation severe changes to right hip possible prior intertrochanteric fracture that did not have surgical fixation and small to moderate size hiatal hernia. CT brain Ventriculomegaly is stable with a right-sided frontal approach ventriculostomy appearing stable. No acute intracranial pathology. Pelvic ultrasound The patient could not tolerate transvaginal imaging which severely compromises the sensitivity examination. There is a 9.2 cm cystic mass in the left adnexa however cannot be said with certainty whether this is ovarian in nature. Blood flow is documented along the periphery of this lesion, however, cannot be said with certainty whether it is flow within the ovarian tissue. EKG sinus rhythm left bundle branch block Patient will be admitted for generalized weakness and low magnesium. Allergies: Patient has no known allergies. Prior [...] in the morning. 02/25/25 Yes KAIDEN Jain ferrous sulfate 325 (65 FE) MG tablet Take 1 tablet (325 mg total) by mouth daily with breakfast. 05/16/25 Yes KAIDEN Hopkins furosemide (LASIX) 20 mg tablet Take 1 tablet (20 mg total) by mouth daily. 05/16/25 Yes KAIDEN Hopkins insulin lispro (HumaLOG) 100 unit/mL [...] daily 01/25/25 01/20/26 Yes Casimiro Muñoz MD mirtazapine (REMERON) 7.5 mg tablet Take 1 tablet (7.5 mg total) by mouth nightly. 01/22/25 Yes KAIDEN Werner sertraline (ZOLOFT) 100 mg tablet Take 1 tablet (100 mg total) by mouth in the morning. 01/28/25 Yes Not In System Ref Prov traZODone (DESYREL) 100 mg tablet TAKE 1 TABLET BY MOUTH EVERY DAY AT NIGHT Patient taking differently: Take 1 tablet (100 mg total) by mouth nightly. TAKE 1 TABLET BY MOUTH EVERY DAY AT NIGHT 11/28/24 Yes KAIDEN Werner lidocaine (SALONPAS) 4 % Place 1 patch on the skin daily. 05/29/25 Giovanny Penny, Past Medical History: Patient has a past medical history of Anemia, Arthritis, Asthma, Cataract, Dental disease, Depression, [place] Diabetes mellitus type 2, controlled [place] Encephalitis, Foot fracture, left, GERD (gastroesophageal reflux disease), Heart murmur, HLD (hyperlipidemia), Hypertension, Incontinence, Injury of back, Insulin dependent diabetes mellitus, Kidney failure, Lumbar spondylolysis, Murmur, Obesity, CHELSEA (obstructive sleep apnea), Peptic ulceration, Peripheral vascular disease, Shortness of breath, St[place] (02/27/[place]24), TIA (transient ischemic attack), Upper respiratory [...] does not use drugs. Review of Systems Constitutional: Positive for decreased appetite and malaise/fatigue. Negative for chills, diaphoresis and fever. HENT: Negative for congestion. Cardiovascular: Negative for chest pain, dyspnea on exertion, leg swelling and palpitations. Respiratory: Negative for cough, shortness of breath, sputum production and wheezing. Hematologic/Lymphatic: Bruises/bleeds easily. Skin: Negative for dry skin and poor wound healing. Musculoskeletal: Positive for arthritis. Negative for back pain and falls. Gastrointestinal: Positive for nausea. Negative for bloating, abdominal pain, dysphagia and vomiting. Genitourinary: Negative for bladder incontinence. Neurological: Positive for excessive daytime sleepiness and weakness. Negative for dizziness, paresthesias and tremors. Psychiatric/Behavioral: Negative for altered mental status and memory loss. OBJECTIVE BP 116/53 Pulse 71 Temp 36.9 C (98.4 F) (Temporal) Resp 16 Ht 165.1 cm (5' 5 ) Wt 78.5 kg (173 lb) LMP (LMP Unknown) SpO2 98% BMI 28.79 kg/m Temp: [36.3 C (97.4 F)-36.9 C (98.4 F)] 36.9 C (98.4 F) Pulse: [67-80] 71 Resp: [16] 16 BP: (110-134)/(53-79) 116/53 SpO2: [94 %-100 %] 98 % O2 Device: None (Room air) O2 Flow Rate (L/min): [0 L/min] 0 L/min Intake/Output Summary (Last 24 hours) at 07/03/2025 1655 Last data filed at 07/03/2025 0930 Gross per 24 hour Intake 240 ml Output 900 ml Net -660 ml Physical Exam Vitals (on RA) and nursing note reviewed. Constitutional: General: She is not in acute distress. Appearance: Normal appearance. She is ill-appearing (chronic). She is not toxic-appearing or diaphoretic. HENT: Head: Normocephalic and atraumatic. Nose: Nose normal. Mouth/Throat: Mouth: Mucous membranes are moist. Eyes: Pupils: Pupils are equal, round, and reactive to light. Cardiovascular: Rate and Rhythm: Normal rate and regular rhythm. Pulses: Normal pulses. Heart sounds: Murmur heard. Pulmonary: Effort: Pulmonary effort is normal. No respiratory distress. Breath sounds: Rales (bases left > right) present. No wheezing. Abdominal: General: Bowel sounds are normal. There is no distension. Palpations: Abdomen is soft. Tenderness: There is no abdominal tenderness. Musculoskeletal: Cervical back: Normal range of motion and neck supple. Right lower leg: No edema. Left lower leg: No edema. Skin: General: Skin is warm and dry. Capillary Refill: Capillary refill takes 2 to 3 seconds. Coloration: Skin is pale. Neurological: Mental Status: She is alert and oriented to person, place, and time. Mental status is at baseline. Sensory: No sensory deficit. Motor: Weakness (generalizd) present. Gait: Gait normal. Psychiatric: Mood and Affect: Mood normal. Behavior: Behavior normal. Thought Content: Thought content normal. Judgment: Judgment normal. Medications Scheduled: cefTRIAXone (ROCEPHIN) IV, 1,000 mg, intravenous, Q24H cyanocobalamin, 1,000 mcg, oral, Daily enoxaparin (LOVENOX) injection, 40 mg, subcutaneous, Daily ferrous sulfate, 325 mg, oral, BID with meals insulin glargine, 10 Units, subcutaneous, Nightly insulin lispro, 1-4 Units, subcutaneous, Nightly insulin lispro, 2-10 Units, subcutaneous, TID with meals magnesium oxide, 400 mg, oral, Daily polyethylene glycol, 17 g, oral, Daily sertraline, 100 mg, oral, Daily sodium chloride, 3 mL, intravenous, Q12H DALTON traZODone, 100 mg, oral, Nightly Infusions: dextrose 5 % in water, 100 mL/hr dextrose 5 % in water, 100 mL/hr sodium chloride 0.9 %, 20 mL/hr sodium chloride 0.9 %, 50 mL/hr, Last Rate: 50 mL/hr (07/02/252047) As Needed: acetaminophen alum-mag hydroxide-simeth calcium gluconate calcium gluconate calcium gluconate dextrose dextrose dextrose 5 % in water dextrose 5 % in water dextrose 50 % in water (D50W) dextrose 50 % in water (D50W) glucagon (human recombinant) glucagon (human recombinant) magnesium sulfate magnesium sulfate ondansetron promethazine OR promethazine sennosides-docusate sodium sodium phosphate IV OR sodium phosphate IV - central line OR sod phos di, mono-K phos mono sodium chloride sodium chloride sodium chloride 0.9 % Allergies: Patient has no known allergies. Labs Recent Results (from the past 24 hours) Phosphorus Collection Time: 07/02/25 6:44 PM Result Value Ref Range PHOSPHORUS 3.0 2.4 - 4.9 mg/dL Bedside Glucose *Place/Obtain serum glucose if >500 per glucometer. Collection Time: 07/02/25 7:08 PM Result Value Ref Range Bedside Glucose (POC) 99 65 - 99 mg/dL Comprehensive metabolic panel Collection Time: 07/03/25 5:22 AM Result Value Ref Range SODIUM 132 (L) 134 - 146 mmol/L POTASSIUM 3.8 3.5 - 5.0 mmol/L CHLORIDE 98 98 - 109 mmol/L CARBON DIOXIDE 25 22 - 32 mmol/L ANION GAP 9 5 - 15 mmol/L BLOOD UREA NITROGEN 18 5 - 27 mg/dL CREATININE 1.17 (H) 0.40 - 1.00 mg/dL GLUCOSE 103 (H) 65 - 99 mg/dL CALCIUM 9.0 8.5 - 10.5 mg/dL TOTAL PROTEIN 7.0 6.0 - 8.0 g/dL ALBUMIN 3.2 3.2 - 5.3 g/dL ALKALINE PHOSPHATASE 115 39 - 130 U/L AST 21 <=41 U/L ALT 14 <=31 U/L BILIRUBIN,TOTAL 0.9 0.3 - 1.2 mg/dL EGFR Non-Race Dependent 47 (L) >=60 ml/min/1.73sq.m Magnesium Collection Time: 07/03/25 5:22 AM Result Value Ref Range MAGNESIUM 1.8 1.8 - 2.6 mg/dL Phosphorus Collection Time: 07/03/25 5:22 AM Result Value Ref Range PHOSPHORUS 3.1 2.4 - 4.9 mg/dL CBC auto differential Collection Time: 07/03/25 5:22 AM Result Value Ref Range WBC 6.2 4 - 11 x10E9/L RBC Count 3.43 (L) 3.8 - 5.2 X10E12/L Hemoglobin 9.2 (L) 11.7 - 15.5 g/dL Hematocrit 27.6 (L) 35 - 47 % MCV 81 80 - 100 fL MCH 26.9 (L) 27 - 34 pg MCHC 33.5 32 - 36 g/dL RDW 17.3 (H) 11.5 - 15 % Platelet Count 314 150 - 450 X10E9/L MPV 8.3 7 - 12 fL Neutrophils % 61.2 % Lymphocytes % 25.8 % Monocytes % 11.0 % Eosinophils % 1.6 % Basophils % 0.4 % Neutrophils Absolute (A) 3.8 1.5 - 6.6 10*3/uL Lymphocytes Absolute 1.6 1.0 - 3.5 10*3/uL Monocytes Absolute 0.7 0.0 - 0.9 10*3/uL Eosinophils Absolute 0.1 0.0 - 0.4 10*3/uL Basophils Absolute 0.0 0.0 - 0.2 10*3/uL Differential Type AUTOMATED DIFFERENTIAL Bedside Glucose *Place/Obtain serum glucose if >500 per glucometer. Collection Time: 07/03/25 7:58 AM Result Value Ref Range Bedside Glucose (POC) 125 (H) 65 - 99 mg/dL Bedside Glucose *Place/Obtain serum glucose if >500 per glucometer. Collection Time: 07/03/25 11:41 AM Result Value Ref Range Bedside Glucose (POC) 204 (H) 65 - 99 mg/dL Radiology Ultrasound pelvic with duplex Result Date: 07/02/2025 Narrative: CLINICAL INFORMATION: Evaluate for Ovarian Torsion. TECHNIQUE: Real-time transabdominal sonographic evaluation of the pelvis was performed with villarreal scale and color flow imaging. The patient could not tolerate transvaginal imaging which severely compromises sensitivity the examination. Real time villarreal scale, color flow imaging and duplex spectral Doppler waveform analysis evaluation was performed of the major arterial inflow and venous outflow structures of the ovaries with arterial and venous spectral waveforms obtained and reviewed in view of the clinical history of Evaluate for Ovarian Torsion . Duplex spectral Doppler document arterial and venous spectral waveforms documented within the major arterial inflow and venous outflow of both ovaries. Arterial and venous Doppler duplex spectral waveforms were evaluated. COMPARISON: Comparison made to a CT abdomen pelvis performed earlier in the day FINDINGS: There is partial visualization of a 9.2 x 8.1 x 8.7 cm partially cystic mass in the left adnexa, felt to represent the abnormality described previous CT examination. There is blood flow along the periphery of this lesion, however, it cannot be said with certainty whether the flow is in the ovarian tissue. The right ovary was not visualized due to overlying bowel gas. There is no free fluid in the cul-de-sac. IMPRESSION: * The patient could not tolerate transvaginal imaging which severely compromises the sensitivity examination. * There is a 9.2 cm cystic mass in the left adnexa however cannot be said with certainty whether this is ovarian in nature. Blood flow is documented along the periphery of this lesion, however, cannot be said with certainty whether it is flow within the ovarian tissue. Finalized by Giovanny Zheng MD on 07/02/2025 1:[address] brain without contrast Result Date: 07/02/2025 Narrative: CT HEAD WITHOUT IV CONTRAST CLINICAL STATEMENT: confusion, fall? signs of head injury Comparison study: 05/14/2025 TECHNIQUE: Axial views were obtained at 2.5 mm interval through the head without IV contrast. Automatic dose exposure reduction technique utilized. FINDINGS: The midline structures are not deviated. The ventricular system is prominent as previously documented and is unchanged in appearance without progressive ventriculomegaly. There is no intraventricular hemorrhage. There is no transependymal flow of CSF noted on the study.. The villarreal and white matter show normal attenuation. The posterior fossa is unremarkable. No features of raised intracranial pressure.No intracranial bleed. The IACs are unremarkable. The cerebellopontine angles are unremarkable. The temporomandibular joints show no abnormality. The osseous structures in the skull base and in the calvarium show no definite abnormality. Note is made of a right-sided ventriculostomy with a right frontal approach that demonstrates no acute complication. Tip of this is located in the region of the right foramen of [place]. The orbits are lens replacements.. The paranasal sinuses are clear. The mastoid air cells are clear. IMPRESSION: Ventriculomegaly is stable with a right-sided frontal approach ventriculostomy appearing stable. No acute intracranial pathology. All CT scans at this facility use dose modulation, iterative reconstruction, and/or weight based dosing when appropriate to reduce radiation dose to as low as reasonably achievable. Finalized by Damien Golden MD on 07/02/2025 12:[address] abdomen and pelvis with contrast Result Date: 07/02/2025 Narrative: Study: CT abdomen and pelvis with contrast History:Vomiting UTI Protocol:CT abdomen and pelvis with contrast Contrast 100 mL Omnipaque 300 COMPARISON:06/03/2025 Findings: Lung bases:Normal Liver:Normal Spleen:Normal Gallbladder:Normal Bile ducts:No dilatation Pancreas:Normal Adrenals:Normal Kidneys:Small cysts in the right kidney. Kidneys are otherwise unremarkable Ureters:Normal Bladder:Normal Bowel:Small to moderate-sized hiatal hernia stomach unremarkable. Small bowel is nondilated. Mild large bowel dilatation with stool in the colon which could indicate constipation. No appendicitis or diverticulitis. Reproductive organs:Uterus is unremarkable. There is a complex pelvic cyst in the left adnexa contains calcifications possibly solid component somewhat thick clements and it is multilocular. Measures in aggregate approximately 9.4 x 6.5 cm it is increased significantly in size since previous study of 06/11/2025. [place]:No adenopathy Peritoneum:No free air or free fluid Retroperitoneum:No adenopathy Vessels: Atherosclerotic changes in the aorta no aneurysm Abdominal wall:WELD ENGINEER shunt tube Bones:Severe changes in the right hip possible prior intertrochanteric fracture which has not undergone fixation. IMPRESSION: * Large left adnexal cyst increased in size since previous examination pelvic ultrasound is recommended for further evaluation. * Severe changes in the right hip possible prior intertrochanteric fracture which has not undergone fixation. * Small to moderate-sized hiatal hernia stomach All CT scans at this facility use dose modulation, iterative reconstruction, and/or weight based dosing when appropriate to reduce radiation dose to as low as reasonably achievable. Finalized by Chester Parra MD on 07/02/2025 12:22 PM X-ray chest 1 view Result Date: 07/02/2025 Narrative: Single view chest History: Weakness and vomiting Comparison: X-ray 06/03/2025 Findings: Single portable view of the chest. Cardiomediastinal silhouette and pulmonary vasculature are within normal limits. Lungs and pleural space are clear. There is no pleural effusion or pneumothorax. Shunt catheter overlies right hemithorax. Impression: No acute cardiopulmonary process. Finalized by Jason Bryan on 07/02/2025 11:[address] abdomen and pelvis without contrast Result [...] Ryan Dominguez MD on 06/11/2025 2:23 AM X-ray chest 1 [...] History: Fatigue Comparison: X-ray 05/13/2025 Findings: Single portable view of the chest. Cardiomediastinal silhouette and pulmonary vasculature are within normal limits. Lungs and pleural space are clear. There is [...] appearing right hip lesser trochanteric avulsion fracture. 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 antiemetics - downgrade diet to clear liquids Hypomagnesemia -supplement and replace as well as recheck Chronic respiratory failure Oxygen dependent at home 2 L -supportive care not in acute exacerbation -encourage cough and deep breathing Diabetes mellitus type 2 without long-term insulin use controlled Poor intake -a.c. and HS Accu-Cheks with sliding scale coverage -dietitian can follow -fluids for one day Hypertension Hyperlipidemia -continue home medications -124/72 heart rate 67 Stage IIIB CKD -hold off on Lasix for now since she has had poor intake -strict intake and output daily weights -avoid nephrotoxic medication Obstructive sleep apnea -supposed to wear CPAP encourage as able to tolerate History of aortic valve replacement 2022 Chronic Diastolic CHF not in failure -supportive care -hold lasix -strict I&O's -negative balance 900ml Sepsis suspected, no-not clinically evident at this time. Chart reviewed. Admission orders placed. Home medications reconciled. DVT/VTE prophylaxis: SCD and heparin SQ. GI prophylaxis: not indicated. PT/OT/ST to evaluate and treat. DC planning: Full code, will likely need PT/OT Medically Ready for Discharge: Anticipated tomorrow when we get placement [facility] first choice KAIDEN Magana 07/03/2025 4:55 PM [facility] Internal Medicine 7AM-7PM & 7PM-7AM: EpicChat or page through On-Call Finder. KAIDEN Magana 07/03/25 1308 Physician Attestation I, Felix Hallman MD, personally [...] with the plan as noted. Patient with known left adnexal mass, iron deficiency anemia, CHF was admitted with increased generalized weakness and nausea and vomiting. On IV normal saline hold Lasix monitor CBC, CMP. CT abdominal pelvis shows left adnexal mass patient is to follow up with lane attendant Oncology as outpatient documented in this encounter [facility] 07-02-2025 Plan of care note Problem: Pain Goal: Patient goal is pain score less than 4, able to rest, and participant in treatment plan as appropriate Description: INTERVENTIONS: 1. Encourage patient or legal benefits representative to report early pain and ask [...] per policy 9. Teach patient or legal benefits representative interventions for comforting Outcome: Progressing Note: [...] at the bedside 7. Instruct patient/ patient benefits representative about use of safety devices 8. Include patient/ patient benefits representative in decisions related to safety Outcome: Progressing Note: Evaluation of progress towards goal: Pt's risk for falls assessed and fall prevention implemented as needed, safe environment provided and maintained, hand hygiene completed. Problem: Infection Goal: Absence of infection during [...] hygiene technique. 7. Identify and instruct patient/patient benefits representative in use of appropriate isolation precautions for identified infection/symptoms. 8. Provide and discuss with patient/patient benefits representative on educational MDRO sheet. 9. Encourage and monitor nutritional status daily and consult joist setter if indicated. 10. Implement neutropenic guidelines as needed. Outcome: Progressing Note: Evaluation of progress towards goal: Patient VS WNL, remains afebrile for shift. Continue to monitor. Problem: Knowledge Deficit Goal: Patient/patient benefits representative demonstrates understanding of disease process, treatment plan, medications, and discharge instructions Description: INTERVENTIONS 1. Complete learning assessment and assess knowledge base 2. Provide teaching at level of understanding 3. Provide teaching via preferred learning method(s) Outcome: Progressing Note: Evaluation of progress towards goal: POC discussed with patient. Questions answered PRN. Problem: Discharge Planning Goal: Discharge to post-acute [...] Evaluation of progress towards goal: Continue to assess for when appropriate. Problem: Inadequate Airway Clearance Goal: Patient will [...] Evaluation of progress towards goal: Continue to assess for when appropriate. Problem: Inadequate Breathing Pattern Goal: Patient will [...] Evaluation of progress towards goal: Continue to assess for when appropriate. Goal: Patient will maintain effective ventilation Description: [...] Evaluation of progress towards goal: Continue to assess for when appropriate. Problem: Anxiety Goal: Anxiety is at manageable [...] Collaborate with ancillary departments 14. Include patient/patient benefits representative in decisions related to anxiety Outcome: Progressing Note: Evaluation of progress towards goal: Patient is able to verbalize their feeling or concerns. Problem: Activity Intolerance/Impaired Mobility Goal: Mobility/activity is [...] care 6. Collaborate with pastoral/spiritual care, social media content specialist, mental health counselor as needed. 7. Instruct patient on diversional activities such as physical activity, distraction, and deep breathing exercises to assist with coping 8. Involve patient's benefits representative in care Outcome: Progressing Note: Evaluation of progress towards goal: Continue to assess for when appropriate. Problem: Glucose Imbalance Goal: Clinical indication of glucose balance is achieved Description: Patient's goal is: INTERVENTIONS 1. Monitor blood glucose levels as ordered 2. Administer medications as ordered 3. Notify physician of ineffective treatment plan Outcome: Progressing Note: Evaluation of progress towards goal: Patient is being checked bedside ACHS and given insulin according to sliding scale coverage. Goal: Patient's discharge needs are met Description: Patient's goal is: INTERVENTIONS 1. Assess patient for self-management skills 2. Encourage participation in diabetes management 3. Identify potential discharge barriers on admission and throughout hospital stay 4. Involve patient/S.O. in discharge planning process 5. Communicate referral to patient experience coordinator as appropriate 6. Communicate referral to joist setter as appropriate 7. Collaborate with case management/social media content specialist for discharge needs Outcome: Progressing Note: Evaluation of progress towards goal: Continue to assess for when appropriate. Problem: Potential for Compromised Skin Integrity Goal: [...] Note: Evaluation of progress towards goal: Patient is independent with turning and repositioning. Goal: Patient's nutritional intake is adequate Description: [...] supplement as ordered 13. Collaborate with clinical joist setter 14. Include patient/ patient's benefits representative in decisions related to nutrition Outcome: [...] as needed, labs monitored. [facility] 06-24-2025 Telephone encounter Note Eventually we possibly will, but currently we [...] with a 1-1 assist to prevent falls. [facility] Work Phone: 06-24-2025 Miscellaneous Notes Eventually we possibly will, but currently we [...] with a 1-1 assist to prevent falls. Cuca Tejeda's daughter called, she wants to know if they can have outpatient therapy here in [place] at [facility] Therapy [facility] pl[facility] advise documented in this encounter [facility] 06-21-2025 Telephone encounter Note Cuca Tejeda's daughter called, she wants to know if they can have outpatient therapy here in [place] at [facility] in [facility] pls advise [facility] 06-18-2025 Telephone encounter Note Cuca Tejeda's daughter called and said that Cuca is taking OTC Tylenol but its not helping, wanted to know if we can call in something stronger for her. Please advise [facility] 06-18-2025 Miscellaneous Notes Cuca Tejeda's daughter called and said that Cuca is taking OTC Tylenol but its not helping, wanted to know if we can call in something stronger for her. Please advise documented in this encounter [facility] 06-06-2025 History of Present illness Narrative Images from the original note were not included. Orthopedic Office note: NAME: Cuca Dee : 1945 NEW PT WITH RT HIP [...] requiring urgent evaluation. Visit was preformed using [employer] Co-pilot plant operator speech recognition. documented in this encounter [facility] 06-05-2025 History of Present illness Narrative IM PROGRESS NOTE Patient - Cuca Dee Age - 79 y.o. - 1945 ASSESSMENT [...] surgical history and problem list. Out of prison 9 days ago. Patient was found to [...] 05/12/2025 Auto Resulted Final POC Urine Specific [place] 05/12/2025 1.015 1.010, 1.015, 1.020, 1.025 Final [...] Berry Wyman MD on 05/13/2025 11:01 AM X-ray chest [...] months (around 09/05/2025) for DM. EN Diaz [facility] Office: [phone] This note is dictated with the use of M*Modal. Please note that this dictation was completed with computer voice recognition software. Quite often unanticipated grammatical, syntax, homophones, and other interpretive errors are inadvertently transcribed by the computer software. Please disregard these errors. Please excuse any errors that have escaped final proofreading. KAIDEN Hopkins 06/05/25 1358 documented in this encounter [facility] 05-22-2025 Note SUBJECTIVE: Chief complaint: NPH with WELD ENGINEER shunt. History of present illness: Follow-up for normal pressure hydrocephalus. She was recently hospitalized with hypoxia and altered mental status. Found to have pneumonia as well as a right hip fracture. Fracture did not require surgical intervention. Notes that this spring, she had MRSA bacteremia. [facility] Denies headaches, numbness, tingling, vision change. [...] Aortic stenosis Asthma Atrial fibrillation (CMS/HCC) Cancer ([facility]/HCC) 02/2023 right breast, metastatic Cataract CKD (chronic kidney disease) Coronary artery disease Depression Diabetes mellitus (CMS/HCC) Dyslipidemia Femur fracture, right ([facility]/HCC) 04/2025 GERD (gastroesophageal reflux disease) Heart failure ([facility]/HCC) Hypertension Ischemic stroke ([facility]) 02/2024 seen at [facility] NPH (normal pressure hydrocephalus) ([facility]) PVD (peripheral vascular disease) Sleep apnea Past [...] Name Age of Onset Diabetes Mother Kacey Dee Hypertension Father Radha Dee Coronary artery disease Father Radha Dee OBJECTIVE: Medications: acetaminophen amLODIPine amoxicillin aspirin atorvastatin cefuroxime cholecalciferol (vitamin D3) clopidogrel Dexcom G6 [place]et[place] misc Dexcom G6 Transmitter device Dexcom G7 Sensor device doxycycline ferrous sulfate FreeStyle Kartik 14 Day [place] misc FreeStyle Kartik 14 Day Sensor kit furosemide gabapentin hydroCHLOROthiazide insulin aspart insulin lispro lancets misc Lantus Solostar U-100 Insulin insulin pen letrozole Levemir FlexPen insulin pen lisinopril magnesium oxide melatonin capsule metoprolol tartrate mirtazapine miscellaneous medical supply misc mupirocin nystatin ONETOUCH ULTRA BLUE TEST STRIP MISC OneTouch Ultra Test strip oxyBUTYnin pantoprazole pen [...] tablet, TAKE 4 (more content not included)... [facility] 05-15-2025 Plan of care note Problem: Pain Goal: Patient goal is pain score less than 4, able to rest, and participant in treatment plan as appropriate Description: INTERVENTIONS: 1. Encourage patient or legal benefits representative to report early pain and ask [...] per policy 9. Teach patient or legal benefits representative interventions for comforting 05/15/2025 1511 by [...] at the bedside 7. Instruct patient/ patient benefits representative about use of safety devices 8. Include patient/ patient benefits representative in decisions related to safety 05/15/2025 1511 by Migue RN Outcome: Adequate [...] hygiene technique. 7. Identify and instruct patient/patient benefits representative in use of appropriate isolation precautions for identified infection/symptoms. 8. Provide and discuss with patient/patient benefits representative on educational MDRO sheet. 9. Encourage and monitor nutritional status daily and consult joist setter if indicated. 10. Implement neutropenic guidelines as needed. 05/15/2025 1511 by GABBY Camarena Outcome: Adequate for Discharge 05/15/2025 134 by GABBY Camarena Outcome: Progressing Note: Evaluation of progress towards goal: Pt afebrile at this time, continue to monitor for signs infection Problem: Knowledge Deficit Goal: Patient/patient benefits representative demonstrates understanding of disease process, treatment [...] Arrange for needed discharge transportation as appropriate 05/15/2025 151 by GABBY Camarena Outcome: Adequate [...] Handoff to next level of care provider (date night caregiver, PCP, home care). 5. Complete follow up phone call within 72 hours. 05/15/2025 151 by GABBY Camarena Outcome: Adequate [...] call, confirm that prescriptions have been filled. 05/15/2025 151 by GABBY Camarena Outcome: Adequate [...] as appropriate, for home medication review. 05/15/2025 151 by GABBY Camarena Outcome: Adequate [...] Time-Out or Discharge Final-Check. 05/15/2025 151 by GABBY Camarena Outcome: Adequate [...] team and initiate plans/interventions as needed 05/15/2025 151 by GABBY Camarena Outcome: Adequate [...] Collaborate with ancillary departments 14. Include patient/patient benefits representative in decisions related to anxiety 05/15/2025 1511 by Migue RN Outcome: Adequate [...] Ensure adequate rest/sleep time 05/15/2025 1511 by GABBY Camarena Outcome: Adequate [...] care 6. Collaborate with pastoral/spiritual care, social media content specialist, mental health counselor as needed. 7. Instruct patient on diversional activities such as physical activity, distraction, and deep breathing exercises to assist with coping 8. Involve patient's benefits representative in care 05/15/2025 1511 by GABBY [...] Score of =/> 25 or indicated by [facility] Assessment Goal: Patient should be free from fall Description: Interventions: 1. Mamou to environment 2. Hourly rounds addressing the [...] non-skid footwear 11. Teach patient and patient benefits representative to maintain environment for safety and [...] (cane, walker) within reach 19. Request patient benefits representative bring adaptive equipment/mobility aids from home or obtain and provide as needed 20. Consult pharmacy regarding effects of med's affecting mobility, cognition, and alternatives 21. Obtain physician order for PT if risk factors associated with mobility are present 22. Obtain physician order for OT as appropriate 23. Utilize diversional activities 24. Educate patient and patient benefits representative how to maintain a safe environment during visitation times (notify nurse prior to leaving bedside) 25. Consider appropriateness of medical or non-medical front desk specialist 26. Set up voiding schedule as appropriate [...] supplement as ordered 13. Collaborate with clinical joist setter 14. Include patient/ patient's benefits representative in decisions related to nutrition 05/15/2025 [...] to ensure perfusion and oxygenation and ventilation Cordium 05-15-2025 Miscellaneous Notes Problem: Pain Goal: Patient goal is pain score less than 4, able to rest, and participant in treatment plan as appropriate Description: INTERVENTIONS: 1. Encourage patient or legal benefits representative to report early pain and ask [...] per policy 9. Teach patient or legal benefits representative interventions for comforting 05/15/2025 1511 by Migue RN Outcome: Adequate [...] at the bedside 7. Instruct patient/ patient benefits representative about use of safety devices 8. Include patient/ patient benefits representative in decisions related to safety 05/15/2025 1511 by Migue RN Outcome: Adequate [...] hygiene technique. 7. Identify and instruct patient/patient benefits representative in use of appropriate isolation precautions for identified infection/symptoms. 8. Provide and discuss with patient/patient benefits representative on educational MDRO sheet. 9. Encourage and monitor nutritional status daily and consult joist setter if indicated. 10. Implement neutropenic guidelines as needed. 05/15/2025 1511 by GABBY Camarena Outcome: Adequate for Discharge 05/15/20251348 by GABBY Camarena Outcome: Progressing Note: Evaluation of progress towards goal: Pt afebrile at this time, continue to monitor for signs infection Problem: Knowledge Deficit Goal: Patient/patient benefits representative demonstrates understanding of disease process, treatment [...] Arrange for needed discharge transportation as appropriate 05/15/2025 1511 by GABBY Camarena Outcome: Adequate [...] Handoff to next level of care provider (date night caregiver, PCP, home care). 5. Complete follow up phone call within 72 hours. 05/15/2025 151 by GABBY Camarena Outcome: Adequate [...] call, confirm that prescriptions have been filled. 05/15/2025 151 by GABBY Camarena Outcome: Adequate [...] as appropriate, for home medication review. 05/15/2025 151 by GABBY Camarena Outcome: Adequate [...] a Discharge Time-Out or Discharge Final-Check. 05/15/2025 1511 by GABBY Camarena Outcome: Adequate [...] team and initiate plans/interventions as needed 05/15/2025 151 by GABBY Camarena Outcome: Adequate [...] Collaborate with ancillary departments 14. Include patient/patient benefits representative in decisions related to anxiety 05/15/2025 [...] care 6. Collaborate with pastoral/spiritual care, social media content specialist, mental health counselor as needed. 7. Instruct patient on diversional activities such as physical activity, distraction, and deep breathing exercises to assist with coping 8. Involve patient's benefits representative in care 05/15/2025 1511 by Migue RN Outcome: Adequate [...] Score of =/> 25 or indicated by [facility] Assessment Goal: Patient should be free from fall Description: Interventions: 1. Mamou to environment 2. Hourly rounds addressing the [...] non-skid footwear 11. Teach patient and patient benefits representative to maintain environment for safety and [...] (cane, walker) within reach 19. Request patient benefits representative bring adaptive equipment/mobility aids from home or obtain and provide as needed 20. Consult pharmacy regarding effects of med's affecting mobility, cognition, and alternatives 21. Obtain physician order for PT if risk factors associated with mobility are present 22. Obtain physician order for OT as appropriate 23. Utilize diversional activities 24. Educate patient and patient benefits representative how to maintain a safe environment during visitation times (notify nurse prior to leaving bedside) 25. Consider appropriateness of medical or non-medical front desk specialist 26. Set up voiding schedule as appropriate [...] supplement as ordered 13. Collaborate with clinical joist setter 14. Include patient/ patient's benefits representative in decisions related to nutrition 05/15/2025 1511 by Migue RN Outcome: Adequate [...] Prior Auth approved for admission to : [facility]/ [facility], [place], [place] (P# ; F# ) Approval # [id number] Valid for Dates: 05/15/2025 - 05/21/2025 Problem: Pain Goal: Patient goal is pain score less than 4, able to rest, and participant in treatment plan as appropriate Description: INTERVENTIONS: 1. Encourage patient or legal benefits representative to report early pain and ask [...] per policy 9. Teach patient or legal benefits representative interventions for comforting Outcome: Progressing Note: [...] at the bedside 7. Instruct patient/ patient benefits representative about use of safety devices 8. Include patient/ patient benefits representative in decisions related to safety Outcome: [...] hygiene technique. 7. Identify and instruct patient/patient benefits representative in use of appropriate isolation precautions for identified infection/symptoms. 8. Provide and discuss with patient/patient benefits representative on educational MDRO sheet. 9. Encourage and monitor nutritional status daily and consult joist setter if indicated. 10. Implement neutropenic guidelines as needed. Outcome: Progressing Note: Evaluation of progress towards goal: Pt afebrile at this time, continue to monitor for signs infection Problem: Knowledge Deficit Goal: Patient/patient benefits representative demonstrates understanding of disease process, treatment [...] Handoff to next level of care provider (date night caregiver, PCP, home care). 5. Complete follow up [...] Collaborate with ancillary departments 14. Include patient/patient benefits representative in decisions related to anxiety Outcome: [...] care 6. Collaborate with pastoral/spiritual care, social media content specialist, mental health counselor as needed. 7. Instruct patient on diversional activities such as physical activity, distraction, and deep breathing exercises to assist with coping 8. Involve patient's benefits representative in care Outcome: Progressing Note: Evaluation of progress towards goal: Pt's on telemetry, strip read at beginning of shift and when changes occur and monitored throughout shift. Pt free of any dysrhythmias. VS and focused assessment done every 4 hours. Problem: Moderate - High Risk Fall Score Description: Patel Fall Score of =/> 25 or indicated by [facility] Assessment Goal: Patient should be free from fall Description: Interventions: 1. Mamou to environment 2. Hourly rounds addressing the [...] non-skid footwear 11. Teach patient and patient benefits representative to maintain environment for safety and [...] (cane, walker) within reach 19. Request patient benefits representative bring adaptive equipment/mobility aids from home or obtain and provide as needed 20. Consult pharmacy regarding effects of med's affecting mobility, cognition, and alternatives 21. Obtain physician order for PT if risk factors associated with mobility are present 22. Obtain physician order for OT as appropriate 23. Utilize diversional activities 24. Educate patient and patient benefits representative how to maintain a safe environment during visitation times (notify nurse prior to leaving bedside) 25. Consider appropriateness of medical or non-medical front desk specialist 26. Set up voiding schedule as appropriate [...] supplement as ordered 13. Collaborate with clinical joist setter 14. Include patient/ patient's benefits representative in decisions related to nutrition Outcome: [...] Cognition, Fall risk, ADL status, Endurance level Patient Liaison Support for-: Mobility Deficits, ADL Deficits, Cognitive [...] gait belt, IV/midline Weight Bearing Status: WBAT Telemetry/Stave Grader: Yes Oxygen Used: room air Other: fall risk Past Medical History: Diagnosis Date Anemia Arthritis Asthma very mild, no inhaler use Cataract Dental disease Depression [place] Diabetes mellitus type 2, controlled [place] Encephalitis Foot fracture, left GERD (gastroesophageal reflux disease) Heart murmur HLD (hyperlipidemia) Hypertension Incontinence Injury of back Insulin dependent diabetes mellitus Kidney failure STAGE 4 Lumbar spondylolysis Murmur Obesity CHELSEA (obstructive sleep apnea) no machine Peptic ulceration Peripheral vascular disease Shortness of breath Stroke [place] 02/27/2024 TIA (transient ischemic attack) Upper respiratory infection UTI (urinary tract infection) Visual impairment Wears dentures Past Surgical History: Procedure Laterality Date BREAST BIOPSY Right 03/01/2023 ULT BIOPSY CATARACT EXTRACTION SECTION SECTION 03/14/1974 EGD N/A 10/17/2019 Performed by Sarai Bell DO at [facility] H-PERCUTANEOUS CORONARY INTERVENTION HYSTEROSCOPY DILATION CURETTAGE MYOSURE N/A 01/29/2021 Performed by Jv Briones MD at [facility] INJECTION BLOCK EPIDURAL CAUDAL STEROID N/A 08/14/2022 Performed by Arnulfo Gonzalez MD at [facility] INJECTION BLOCK EPIDURAL CAUDAL STEROID N/A 06/06/2021 Performed by Arnulfo Gonzalez MD at [facility] INJECTION BLOCK EPIDURAL CAUDAL STEROID N/A 04/25/2021 Performed by Arnulfo Gonzalez MD at [facility] INJECTION CAUDAL EPIDURAL WITH CATHETER, STEROID N/A 05/03/2020 Performed by Arnulfo Gonzalez MD at [facility] INJECTION CAUDAL EPIDURAL WITH CATHETER, STEROID N/A 11/24/2019 Performed by Arnulfo Gonzalez MD at [facility] INJECTION CAUDAL EPIDURAL WITH CATHETER, STEROID N/A 04/21/2019 Performed by Arnulfo Gonzalez MD at [facility] INJECTION MEDIAL BRANCH NERVE BLOCK Bilateral L 4/5, 5/1 Bilateral 08/18/2019 Performed by Arnulfo Gonzalez MD at [facility] INJECTION MEDIAL BRANCH NERVE BLOCK Bilateral L 4/5, 5/1 Bilateral 06/23/2019 Performed by Arnulfo Gonzalez MD at [facility] INJECTION STEROID EPI 1 WITH SEDATION Right L 4, 5 NR Right 03/17/2019 Performed by Arnulfo Gonzalez MD at [facility] INJECTION STEROID EPI 1 WITH SEDATION: right L45 nroot Right 08/15/2018 Performed by Arnulfo Gonzalez MD at [facility] LEFT L4, AND 5 NERVE ROOT INJECTION 2 OF 2 Left 07/22/2018 Performed by Arnulfo Gonzalez MD at [facility] LEFT L4, AND L5 NERVE ROOT 1 OF 2 Left 07/04/2018 Performed by Arnulfo Gonzalez MD at [facility] SHUNT INSERTION TONSILLECTOMY AGE 4 Transcutaneous aortic valve replacement/Transfemoral/Kwan N/A 08/17/2023 Performed by Chava Norris MD at [facility] Valvuloplasty aortic N/A 06/03/2023 Performed by Chava Norris MD at [facility] Subjective Physical Therapy Comments: [...] Principal Problem: Acute respiratory failure with hypoxia ([facility] Active Problems: 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 mellitus ([facility] Mixed diabetic hyperlipidemia associated with type 2 diabetes mellitus ([facility] Obstructive sleep apnea syndrome Essential (primary) hypertension Acute on chronic diastolic congestive heart failure ([facility]) Stage 3b chronic kidney disease [place] Type 2 diabetes mellitus with diabetic chronic kidney disease [place] Iron deficiency anemia Hypomagnesemia Closed fracture of right hip [place] Nondisplaced fracture of lesser trochanter of right femur, initial encounter for closed fracture (CMS-HCC) Occupational Therapy Evaluation Discharge Recommendations for Safe Patient Transition Discharge Recommendations: Post acute - moderate Post Acute Moderate Rehab Needs: Recommend moderate intensity rehab, Subacute or chronic functional impairment, Tolerate 1-2 hrs of therapy 3-5 days/wk Current Impairments Informing Therapy Recommendation: Ambulation status/safety, Cognition, Fall risk, ADL status, Endurance level Patient Liaison Support for-: Mobility Deficits, ADL Deficits, Cognitive [...] little Scoring Daily Activity Raw Score: 13 [facility] G Code Modifier: CL Therapy Plan/HPI/occupational profile [...] 10/17/2019 Performed by Sarai Bell DO at [facility] H-PERCUTANEOUS CORONARY INTERVENTION HYSTEROSCOPY DILATION CURETTAGE MYOSURE N/A 01/29/2021 Performed by Jv Briones MD at [facility] INJECTION BLOCK EPIDURAL CAUDAL STEROID N/A 08/14/2022 Performed by Arnulfo Gonzalez MD at [facility] INJECTION BLOCK EPIDURAL CAUDAL STEROID N/A 06/06/2021 Performed by Arnulfo Gonzalez MD at [facility] INJECTION BLOCK EPIDURAL CAUDAL STEROID N/A 04/25/2021 Performed by Arnulfo Gonzalez MD at [facility] INJECTION CAUDAL EPIDURAL WITH CATHETER, STEROID N/A 05/03/2020 Performed by Arnulfo Gonzalez MD at [facility] INJECTION CAUDAL EPIDURAL WITH CATHETER, STEROID N/A 11/24/2019 Performed by Arnulfo Gonzalez MD at [facility] INJECTION CAUDAL EPIDURAL WITH CATHETER, STEROID N/A 04/21/2019 Performed by Arnulfo Gonzalez MD at [facility] INJECTION MEDIAL BRANCH NERVE BLOCK Bilateral L 4/5, 5/1 Bilateral 08/18/2019 Performed by Arnulfo Gonzalez MD at [facility] INJECTION MEDIAL BRANCH NERVE BLOCK Bilateral L 4/5, 5/1 Bilateral 06/23/2019 Performed by Arnulfo Gonzalez MD at [facility] INJECTION STEROID EPI 1 WITH SEDATION Right L 4, 5 NR Right 03/17/2019 Performed by Arnulfo Gonzalez MD at [facility] INJECTION STEROID EPI 1 WITH SEDATION: right L45 nroot Right 08/15/2018 Performed by Arnulfo Gonzalez MD at [facility] LEFT L4, AND 5 NERVE ROOT INJECTION 2 OF 2 Left 07/22/2018 Performed by Arnulfo Gonzalez MD at [facility] LEFT L4, AND L5 NERVE ROOT 1 OF 2 Left 07/04/2018 Performed by Arnulfo Gonzalez MD at [facility] SHUNT INSERTION TONSILLECTOMY AGE 4 Transcutaneous aortic valve replacement/Transfemoral/Kwan N/A 08/17/2023 Performed by Chava Norris MD at [facility] Valvuloplasty aortic N/A 06/03/2023 Performed by Chava Norris MD at [facility] Past Medical History: Diagnosis Date Anemia Arthritis Asthma very mild, no inhaler use Cataract Dental disease Depression Diabetes [place] Diabetes mellitus type 2, controlled [place] Encephalitis Foot fracture, left GERD (gastroesophageal reflux disease) Heart murmur HLD (hyperlipidemia) Hypertension Incontinence Injury of back Insulin dependent diabetes mellitus Kidney failure STAGE 4 Lumbar spondylolysis Murmur Obesity CHELSEA (obstructive sleep apnea) no machine Peptic ulceration Peripheral vascular disease Shortness of breath Stroke [place] 02/27/2024 TIA (transient ischemic attack) Upper respiratory [...] gait belt, IV/midline Weight Bearing Status: WBAT Telemetry/Stave Grader: Yes Oxygen Used: room air Other: fall [...] Deficit: R sock (due to pain) Other: show card writer introduced slef role and goals, show card writer zulma with patient. patient agreeable to eval. completes sponge bath while seated on edge of bed, changes gown once seated in chair. brekfast tray arrives and session terminated Home Management - IADL Other: show card writer introduced slef role and goals, show card writer zulma with patient. patient agreeable to eval. [...] Principal Problem: Acute respiratory failure with hypoxia ([facility]) Active Problems: 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 mellitus ([facility] Mixed diabetic hyperlipidemia associated with type 2 diabetes mellitus ([facility] Obstructive sleep apnea syndrome Essential (primary) hypertension Acute on chronic diastolic congestive heart failure ([facility] Stage 3b chronic kidney disease ([facility]) Type 2 diabetes mellitus with diabetic chronic kidney disease ([facility] Iron deficiency anemia Hypomagnesemia Closed fracture of right hip ([facility]) Nondisplaced fracture of lesser trochanter of right femur, initial encounter for closed fracture ([facility] DISCHARGE PLANNING NOTE [facility] PT/OT reminded via secure chat that we need PT/OT notes to submit for SNF insurance authorization. Patient Discharge Plan: Custodial Care at [facility] (accepted) and pending insurance authorization. Can't submit until we have PT/OT evaluation and recommendation. Patient is WBAT. Plan of Care: [facility] (SNF) [phone] Fax CRF at Discharge Follow up appointments: Orthopedics would like to see patient in two weeks. This was added to AVS for SNF to schedule for patient. - Purvi Cardenas RN 05/15/25 8:35 AM PT and OT notes completed. Tasked pre-certification team to begin insurance authorization for patient to go to [place]. Patient Discharge Plan: Custodial Care at [facility] (accepted) and pending insurance authorization. Plan of Care: [facility] (SNF) [phone] Fax CRF at Discharge Follow up appointments: Orthopedics would like to see patient in two weeks. This was added to AVS for SNF to schedule for patient. - Purvi Cardenas RN 05/15/25 12:58 PM Insurance authorization received. Provider placed discharge order. Preadmission Screening & Resident Review (PASSR) PASSR completed via the [employer] ([employer] Electronic Notification System) ODM 7000 (short form) completed and submitted? yes Is a Level II Evaluation required? no SNF notified on [facility] of PASSR completion. yes [facility] yes Patient Discharge Plan: Custodial Care at [facility] (accepted) and insurance authorization received. Plan of Care: [facility] ([facility]) [phone] Fax CRF at Discharge Follow up appointments: [...] at the bedside 7. Instruct patient/ patient benefits representative about use of safety devices 8. Include patient/ patient benefits representative in decisions related to safety Outcome: [...] not established care with Dr. Joiner. Dr. Diane rutledge would like us to continue medical [...] were not included. Discharge Planning Assessment C[facility] Dee Admit Status: Inpatient Meet: Yes Readmission Risk: 31%. Date of Admission: 05/13/2025 GMLOS: 4.6 days Target Discharge Date: 05/17/2025 Discharge Planning Assessment completed at bedside and via phone with patient's daughter, Ismael. Miter Saw Operator identified self and role to the patient. [...] unit as she had a foul odor. Miter Saw Operator spoke with daughter, Ismael. She is agreeable to skilled care after discharge. Ismael staes that patient now has Medicaid so they will not need to worry about a copay any longer. Lengthy discussion with Ismael auguste regardin gnursing concerns of yeast type rash and no change in clothes for 3 days and her foul odor. Ismael states that her mother is refusing to shower at home and refusing to change her clothes. She states they were just approved for an aid through [employer]. However, there is no aid availability to send into the home yet. Miter Saw Operator discusses with Ismael that we will haev [...] Services Nurse visit Community Agencies Currently Utilized [employer] [[employer] community case manager and they plan to send an aid when they have availability.] Community Referrals / Resources Provided Denies needs Who is the existing DME Provider? [employer] ([employer]) ) Established DME Comments Walker, shower chair, [...] Requested Patient expects to be discharged to: senior care care Does the patient wish to have family/friend/caregiver involved in their discharge planning? Yes Does the patient plan to return home to a community setting? No, patient to discharge to facility-based provider. See Discharge Disposition Discharge Disposition SNF Who is the existing DME Provider? [employer] ([employer]) ) Does the patient need discharge transportation arranged? Yes Transportation Arranged Ambulance Patient choice offered Patient declined List Provided Patient declined Patient Declined Other (must state reason) [Patient states she only wants to go to [place]] DC Planning Complete Discharge Milestones Yes Pharmacy: [facility] PCP: Pam Stinson Consult[facility] Providers this admission: Orthopedics for fracture Patient will make her own follow up appointments: no To be made by Custodial Facility Patient Goals: Goals per daughter and patient to SNF (pt-stated) Evaluation of progress towards goal: Patient and daughter agree she will need skilled care as a result of the fracture she has. PT Recommends: Pending evaluation OT Recommends: Pending evaluation Patient denies need for senior care facility list. She states she will not ever go to [facility] again. She will only go to [facility]. Tasked transition team to send referral. Plan to prevent readmission: To senior care facility. As above lengthy discission with patient and daughter regarding the need for patient to be clean at home and take her showers and change her clothes. Patient/Family do not endorse any questions at this time. Patient Discharge Plan: Custodial Care at [facility] (accepted) and pending insurance authorization. Can't submit until we have PT/OT evaluation and recommendation. Patient is WBAT. Plan of Care: [facility] (SNF) [phone] Fax CRF at Discharge Follow up appointments: Orthopedics would like to see patient in two weeks. This was added to AVS for SNF to schedule for patient. Purvi Cardenas RN 05/14/25 1:25 PM DISCHARGE PLANNING NOTE Referral sent to. [facility]/ [facility], [place], [place] (P# ; F# ) Physical Therapy [...] Description: INTERVENTIONS: 1. Encourage patient or legal benefits representative to report early pain and ask [...] per policy 9. Teach patient or legal benefits representative interventions for comforting Outcome: Progressing Note: [...] at the bedside 7. Instruct patient/ patient benefits representative about use of safety devices 8. Include patient/ patient benefits representative in decisions related to safety Outcome: [...] hygiene technique. 7. Identify and instruct patient/patient benefits representative in use of appropriate isolation precautions for identified infection/symptoms. 8. Provide and discuss with patient/patient benefits representative on educational MDRO sheet. 9. Encourage and monitor nutritional status daily and consult joist setter if indicated. 10. Implement neutropenic guidelines as needed. Outcome: Progressing Note: Evaluation of progress towards goal: Pt afebrile at this time, continue to monitor for signs infection Problem: Knowledge Deficit Goal: Patient/patient benefits representative demonstrates understanding of disease process, treatment [...] Handoff to next level of care provider (date night caregiver, PCP, home care). 5. Complete follow up [...] Collaborate with ancillary departments 14. Include patient/patient benefits representative in decisions related to anxiety Outcome: [...] care 6. Collaborate with pastoral/spiritual care, social media content specialist, mental health counselor as needed. 7. Instruct patient on diversional activities such as physical activity, distraction, and deep breathing exercises to assist with coping 8. Involve patient's benefits representative in care Outcome: Progressing Note: Evaluation of progress towards goal: Pt able to verbalize feeling, and allowed time to verbalize feelings. Allowed participation in care and self management. Pt calm, cooperative, active and receptive to treatments. Continue to monitor. Problem: Moderate - High Risk Fall Score Description: Patel Fall Score of =/> 25 or indicated by [facility] Assessment Goal: Patient should be free from fall Description: Interventions: 1. Mamou to environment 2. Hourly rounds addressing the [...] non-skid footwear 11. Teach patient and patient benefits representative to maintain environment for safety and [...] (cane, walker) within reach 19. Request patient benefits representative bring adaptive equipment/mobility aids from home or obtain and provide as needed 20. Consult pharmacy regarding effects of med's affecting mobility, cognition, and alternatives 21. Obtain physician order for PT if risk factors associated with mobility are present 22. Obtain physician order for OT as appropriate 23. Utilize diversional activities 24. Educate patient and patient benefits representative how to maintain a safe environment during visitation times (notify nurse prior to leaving bedside) 25. Consider appropriateness of medical or non-medical front desk specialist 26. Set up voiding schedule as appropriate [...] supplement as ordered 13. Collaborate with clinical joist setter 14. Include patient/ patient's benefits representative in decisions related to nutrition Outcome: [...] Description: INTERVENTIONS: 1. Encourage patient or legal benefits representative to report early pain and ask [...] per policy 9. Teach patient or legal benefits representative interventions for comforting Outcome: Progressing Note: [...] at the bedside 7. Instruct patient/ patient benefits representative about use of safety devices 8. Include patient/ patient benefits representative in decisions related to safety Outcome: [...] hygiene technique. 7. Identify and instruct patient/patient benefits representative in use of appropriate isolation precautions for identified infection/symptoms. 8. Provide and discuss with patient/patient benefits representative on educational MDRO sheet. 9. Encourage and monitor nutritional status daily and consult joist setter if indicated. 10. Implement neutropenic guidelines as needed. Outcome: Progressing Note: Evaluation of progress towards goal: Pt receiving IV ATB. Problem: Pain Goal: Patient goal is pain score less than 4, able to rest, and participant in treatment plan as appropriate Description: INTERVENTIONS: 1. Encourage patient or legal benefits representative to report early pain and ask [...] per policy 9. Teach patient or legal benefits representative interventions for comforting Outcome: Progressing Note: [...] at the bedside 7. Instruct patient/ patient benefits representative about use of safety devices 8. Include patient/ patient benefits representative in decisions related to safety Outcome: [...] hygiene technique. 7. Identify and instruct patient/patient benefits representative in use of appropriate isolation precautions for identified infection/symptoms. 8. Provide and discuss with patient/patient benefits representative on educational MDRO sheet. 9. Encourage and monitor nutritional status daily and consult joist setter if indicated. 10. Implement neutropenic guidelines as needed. Outcome: Progressing Note: Evaluation of progress towards goal: Isolation precautions followed per protocol. Equipment cleaned between patients. Handwashing protocol followed. documented in this encounter [facility] 05-15-2025 Hospital course Narrative Images from the original note were not included. [facility] INTERNAL MEDICINE [facility] [address] [place] [id number] Hospital Medicine Discharge Summary Patient: Cuca Dee Date of : 1945 Room: Encounter date: 05/15/25 DATE OF ADMISSION: 05/13/2025 DATE OF DISCHARGE:05/15/2025 DISCHARGE DIAGNOSES Principal Problem: Acute respiratory failure with hypoxia ([facility] Active Problems: 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 mellitus ([facility]) Mixed diabetic hyperlipidemia associated with type 2 diabetes mellitus ([facility]) Obstructive sleep apnea syndrome Essential (primary) hypertension Acute on chronic diastolic congestive heart failure ([facility]) Stage 3b chronic kidney disease ([facility] Type 2 diabetes mellitus with diabetic chronic kidney disease ([facility]) Iron deficiency anemia Hypomagnesemia Closed fracture of right hip [place] Nondisplaced fracture of lesser trochanter of right femur, initial encounter for closed fracture [place] CONSULTANTS None PCP: Pam Stinson, [employer]PA[employer]PORATE STRATEGIST PROCEDURES None HOSPITAL COURSE SUMMARY Per HPI: [...] admission. Patient he will be discharged to senior care facility with 5 more days of doxycycline. [...] PT OT did see patient and recommended senior care facility. Patient be discharged to senior care facility today. Clinical concern for sepsis, no-sepsis [...] Tubes. Procedure Abnormality Status --------- ------ PST TOP[[id number]] Final result Please view results for these [...] Extra Tubes. Procedure Abnormality Status --------- ------ [facility] TOP[[id number]] Final result Please view results for these [...] hemorrhage, extra-axial fluid collection, or mass effect. Villarreal-white matter differentiation is appropriate. Infarcts and masses [...] valve replacement. The distal portion of a WELD ENGINEER shunt is seen within the abdomen. [...] ovarian. There is partial visualization of a WELD ENGINEER shunt and changes of aortic valve [...] Tony Suárez MD on 05/11/2025 2:28 AM IGiovanny MD have personally reviewed the image(s) and [...] this patient. KAIDEN Hopkins, 05/15/2025 5:24 PM [facility] Internal Medicine 7AM-7PM & 7PM-7AM: EpicChat or [...] have escaped final proofreading. KAIDEN Hopkins 05/15/25 [id number] Physician Attestation I, Felix Hallman MD, personally [...] in stable condition. documented in this encounter [facility] 05-15-2025 Progress note Formatting of t his note might be different from the original. DISCHARGE PLANNING NOTE Prior Auth approved for admission to : [facility]/ [facility], [place], [place] (P# ; F# ) Approval # [id number] Valid for Dates: 05/15/2025 - 05/21/2025 [facility] 05-15-2025 Plan of care note Problem: Pain Goal: Patient goal is pain score less than 4, able to rest, and participant in treatment plan as appropriate Description: INTERVENTIONS: 1. Encourage patient or legal benefits representative to report early pain and ask [...] per policy 9. Teach patient or legal benefits representative interventions for comforting Outcome: Progressing Note: [...] at the bedside 7. Instruct patient/ patient benefits representative about use of safety devices 8. Include patient/ patient benefits representative in decisions related to safety Outcome: [...] hygiene technique. 7. Identify and instruct patient/patient benefits representative in use of appropriate isolation precautions for identified infection/symptoms. 8. Provide and discuss with patient/patient benefits representative on educational MDRO sheet. 9. Encourage and monitor nutritional status daily and consult joist setter if indicated. 10. Implement neutropenic guidelines as needed. Outcome: Progressing Note: Evaluation of progress towards goal: Pt afebrile at this time, continue to monitor for signs infection Problem: Knowledge Deficit Goal: Patient/patient benefits representative demonstrates understanding of disease process, treatment [...] Handoff to next level of care provider (date night caregiver, PCP, home care). 5. Complete follow up [...] Collaborate with ancillary departments 14. Include patient/patient benefits representative in decisions related to anxiety Outcome: [...] care 6. Collaborate with pastoral/spiritual care, social media content specialist, mental health counselor as needed. 7. Instruct patient on diversional activities such as physical activity, distraction, and deep breathing exercises to assist with coping 8. Involve patient's benefits representative in care Outcome: Progressing Note: Evaluation of progress towards goal: Pt's on telemetry, strip read at beginning of shift and when changes occur and monitored throughout shift. Pt free of any dysrhythmias. VS and focused assessment done every 4 hours. Problem: Moderate - High Risk Fall Score Description: Patel Fall Score of =/> 25 or indicated by [facility] Assessment Goal: Patient should be free from fall Description: Interventions: 1. Mamou to environment 2. Hourly rounds addressing the [...] non-skid footwear 11. Teach patient and patient benefits representative to maintain environment for safety and [...] (cane, walker) within reach 19. Request patient benefits representative bring adaptive equipment/mobility aids from home or obtain and provide as needed 20. Consult pharmacy regarding effects of med's affecting mobility, cognition, and alternatives 21. Obtain physician order for PT if risk factors associated with mobility are present 22. Obtain physician order for OT as appropriate 23. Utilize diversional activities 24. Educate patient and patient benefits representative how to maintain a safe environment during visitation times (notify nurse prior to leaving bedside) 25. Consider appropriateness of medical or non-medical front desk specialist 26. Set up voiding schedule as appropriate [...] supplement as ordered 13. Collaborate with clinical joist setter 14. Include patient/ patient's benefits representative in decisions related to nutrition Outcome: [...] to ensure perfusion and oxygenation and ventilation T [facility] 05-15-2025 Progress note Formatting of t [...] Cognition, Fall risk, ADL status, Endurance level Patient Liaison Support for-: Mobility Deficits, ADL Deficits, Cognitive [...] gait belt, IV/midline Weight Bearing Status: WBAT Telemetry/Stave Grader: Yes Oxygen Used: room air Other: fall risk Past Medical History: Diagnosis Date Anemia Arthritis Asthma very mild, no inhaler use Cataract Dental disease Depression Diabetes mellitus [place] Diabetes mellitus type 2, controlled [place] Encephalitis Foot fracture, left GERD (gastroesophageal reflux disease) Heart murmur HLD (hyperlipidemia) Hypertension Incontinence Injury of back Insulin dependent diabetes mellitus Kidney failure STAGE 4 Lumbar spondylolysis Murmur Obesity CHELSEA (obstructive sleep apnea) no machine Peptic ulceration Peripheral vascular disease Shortness of breath Stroke [place] 02/27/2024 TIA (transient ischemic attack) Upper respiratory infection UTI (urinary tract infection) Visual impairment Wears dentures Past Surgical History: Procedure Laterality Date BREAST BIOPSY Right 03/01/2023 ULT BIOPSY CATARACT EXTRACTION SECTION SECTION 03/14/1974 EGD N/A 10/17/2019 Performed by Sarai Bell DO at [facility] H-PERCUTANEOUS CORONARY INTERVENTION HYSTEROSCOPY DILATION CURETTAGE MYOSURE N/A 01/29/2021 Performed by Jv Briones MD at [facility] INJECTION BLOCK EPIDURAL CAUDAL STEROID N/A 08/14/2022 Performed by Arnulfo Gonzalez MD at [facility] INJECTION BLOCK EPIDURAL CAUDAL STEROID N/A 06/06/2021 Performed by Arnulfo Gonzalez MD at [facility] INJECTION BLOCK EPIDURAL CAUDAL STEROID N/A 04/25/2021 Performed by Arnulfo Gonzalez MD at [facility] INJECTION CAUDAL EPIDURAL WITH CATHETER, STEROID N/A 05/03/2020 Performed by Arnulfo Gonzalez MD at [facility] INJECTION CAUDAL EPIDURAL WITH CATHETER, STEROID N/A 11/24/2019 Performed by Arnulfo Gonzalez MD at [facility] INJECTION CAUDAL EPIDURAL WITH CATHETER, STEROID N/A 04/21/2019 Performed by Arnulfo Gonzalez MD at [facility] NERVE BLOCK Bilateral L 4/5, 5/1 Bilateral 08/18/2019 Performed by Arnulfo Gonzalez MD at [facility] NERVE BLOCK Bilateral L 4/5, 5/1 Bilateral 06/23/2019 Performed by Arnulfo Gonzalez MD at [facility] INJECTION STEROID EPI 1 WITH SEDATION Right L 4, 5 NR Right 03/17/2019 Performed by Arnulfo Gonzalez MD at [facility] INJECTION STEROID EPI 1 WITH SEDATION: right L45 nroot Right 08/15/2018 Performed by Arnulfo Gonzalez MD at [facility] LEFT L4, AND 5 NERVE ROOT INJECTION 2 OF 2 Left 07/22/2018 Performed by Arnulfo Gonzalez MD at [facility] LEFT L4, AND L5 NERVE ROOT 1 OF 2 Left 07/04/2018 Performed by Arnulfo Gonzalez MD at [facility] SHUNT INSERTION TONSILLECTOMY AGE 4 Transcutaneous aortic valve replacement/Transfemoral/Kwan N/A 08/17/2023 Performed by Chava Norris MD at [facility] Valvuloplasty aortic N/A 06/03/2023 Performed by Chava Norris MD at [facility] Subjective Physical Therapy Comments: [...] Principal Problem: Acute respiratory failure with hypoxia [place] Active Problems: 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 mellitus [place] Mixed diabetic hyperlipidemia associated with type 2 diabetes mellitus ([facility] Obstructive sleep apnea syndrome Essential (primary) hypertension Acute on chronic diastolic congestive heart failure ([facility] Stage 3b chronic kidney disease ([facility]) Type 2 diabetes mellitus with diabetic chronic kidney disease [place] Iron deficiency anemia Hypomagnesemia Closed fracture of right hip [place] Nondisplaced fracture of lesser trochanter of right femur, initial encounter for closed fracture [place] [facility] 05-15-2025 Progress note Formatting of t his note is different from the original. Occupational Therapy Evaluation Discharge Recommendations for Safe Patient Transition Discharge Recommendations: Post acute - moderate Post Acute Moderate Rehab Needs: Recommend moderate intensity rehab, Subacute or chronic functional impairment, Tolerate 1-2 hrs of therapy 3-5 days/wk Current Impairments Informing Therapy Recommendation: Ambulation status/safety, Cognition, Fall risk, ADL status, Endurance level Patient Liaison Support for-: Mobility Deficits, ADL Deficits, Cognitive [...] 10/17/2019 Performed by Sarai Bell DO at [facility] H-PERCUTANEOUS CORONARY INTERVENTION HYSTEROSCOPY DILATION CURETTAGE MYOSURE N/A 01/29/2021 Performed by Jv Briones MD at [facility] INJECTION BLOCK EPIDURAL CAUDAL STEROID N/A 08/14/2022 Performed by Arnulfo Gonzalez MD at [facility] INJECTION BLOCK EPIDURAL CAUDAL STEROID N/A 06/06/2021 Performed by Arnulfo Gonzalez MD at [facility] INJECTION BLOCK EPIDURAL CAUDAL STEROID N/A 04/25/2021 Performed by Arnulfo Gonzalez MD at [facility] INJECTION CAUDAL EPIDURAL WITH CATHETER, STEROID N/A 05/03/2020 Performed by Arnulfo Gonzalez MD at [facility] INJECTION CAUDAL EPIDURAL WITH CATHETER, STEROID N/A 11/24/2019 Performed by Arnulfo Gonzalez MD at [facility] INJECTION CAUDAL EPIDURAL WITH CATHETER, STEROID N/A 04/21/2019 Performed by Arnulfo Gonzalez MD at [facility] NERVE BLOCK Bilateral L 4/5, 5/1 Bilateral 08/18/2019 Performed by Arnulfo Gonzalez MD at [facility] NERVE BLOCK Bilateral L 4/5, 5/1 Bilateral 06/23/2019 Performed by Arnulfo Gonzalez MD at [facility] STEROID EPI 1 WITH SEDATION Right L 4, 5 NR Right 03/17/2019 Performed by Arnulfo Gonzalez MD at [facility] INJECTION STEROID EPI 1 WITH SEDATION: right L45 nroot Right 08/15/2018 Performed by Arnulfo Gonzalez MD at [facility] LEFT L4, AND 5 NERVE ROOT INJECTION 2 OF 2 Left 07/22/2018 Performed by Arnulfo Gonzalez MD at [facility] LEFT L4, AND L5 NERVE ROOT 1 OF 2 Left 07/04/2018 Performed by Arnulfo Gonzalez MD at [facility] SHUNT INSERTION TONSILLECTOMY AGE 4 Transcutaneous aortic valve replacement/Transfemoral/Kwan N/A 08/17/2023 Performed by Chava Norris MD at [facility] Valvuloplasty aortic N/A 06/03/2023 Performed by Chava Norris MD at [facility] Past Medical History: Diagnosis Date Anemia Arthritis Asthma very mild, no inhaler use Cataract Dental disease Depression Diabetes mellitus (CMS-HCC) Diabetes mellitus type 2, controlled [place] Encephalitis Foot fracture, left GERD (gastroesophageal reflux disease) Heart murmur HLD (hyperlipidemia) Hypertension Incontinence Injury of back Insulin dependent diabetes mellitus Kidney failure STAGE 4 Lumbar spondylolysis Murmur Obesity CHELSEA (obstructive sleep apnea) no machine Peptic ulceration Peripheral vascular disease Shortness of breath Stroke [place] 02/27/2024 TIA (transient ischemic attack) Upper respiratory [...] gait belt, IV/midline Weight Bearing Status: WBAT Telemetry/Stave Grader: Yes Oxygen Used: room air Other: fall [...] fernandather does not work she is on disability) [...] Deficit: R sock (due to pain) Other: show card writer introduced slef role and goals, show card writer cadyar with patient. patient agreeable to eval. completes sponge bath while seated on edge of bed, changes gown once seated in chair. brekfast tray arrives and session terminated Home Management - IADL Other: show card writer introduced slef role and goals, show card writer cadyar with patient. patient agreeable to eval. [...] due to type 2 diabetes mellitus [place] Mixed diabetic hyperlipidemia associated with type 2 diabetes mellitus [place] Obstructive sleep apnea syndrome Essential (primary) hypertension Acute on chronic diastolic congestive heart failure [place] Stage 3b chronic kidney disease ([facility]) Type 2 diabetes mellitus with diabetic chronic kidney disease [place] Iron deficiency anemia Hypomagnesemia Closed fracture of right hip [place] Nondisplaced fracture of lesser trochanter of right femur, initial encounter for closed fracture [place] [facility] Work Phone: 05-15-2025 Progress note Formatting of t his note might be different from the original. DISCHARGE PLANNING NOTE Cuca Dee PT/OT reminded via secure chat that we need PT/OT notes to submit for SNF insurance authorization. Patient Discharge Plan: Custodial Care at [facility] (accepted) and pending insurance authorization. Can't submit until we have PT/OT evaluation and recommendation. Patient is WBAT. Plan of Care: [facility] (SNF) [phone] Fax CRF at Discharge Follow up appointments: Orthopedics would like to see patient in two weeks. This was added to AVS for SNF to schedule for patient. - Purvi Cardenas RN 05/15/25 8:35 AM PT and OT notes completed. Tasked pre-certification team to begin insurance authorization for patient to go to [place]. Patient Discharge Plan: Custodial Care at [facility] (accepted) and pending insurance authorization. Plan of Care: [facility] (SNF) [phone] Fax CRF at Discharge Follow up appointments: Orthopedics would like to see patient in two weeks. This was added to AVS for SNF to schedule for patient. - Purvi Cardenas RN 05/15/25 12:58 PM Insurance authorization received. Provider placed discharge order. Preadmission Screening & Resident Review (PASSR) PASSR completed via the [employer] ([employer] Electronic Notification System) ODM 7006 (short form) completed and submitted? yes Is a Level II Evaluation required? no SNF notified on CarePort of PASSR completion. yes CRF sent via CarePort yes Patient Discharge Plan: Custodial Care at [facility] (accepted) and insurance authorization received. Plan of Care: [facility] (SNF) [phone] Fax CRF at Discharge Follow up appointments: Orthopedics would like to see patient in two weeks. This was added to AVS for SNF to schedule for patient. - Purvi Cardenas RN 05/15/25 2:51 PM [facility] 05-14-2025 Plan of care note Problem: Safety [...] at the bedside 7. Instruct patient/ patient benefits representative about use of safety devices 8. Include patient/ patient benefits representative in decisions related to safety Outcome: [...] breath sounds diminished, not in respiratory distress. [facility] Discharge instructions Migue Douglas RN - 05/14/2025 2:00 PM EDT May 23, at 1 pm. NOM's orthopedic follow up. documented in this encounter [facility] Progress note Formatting of t his [...] not established care with Dr. Joiner. Dr. Diane rutledge would like us to continue medical [...] were not included. Discharge Planning Assessment Cuca Dee Admit Status: Inpatient Meet: Yes Readmission Risk: 31%. Date of Admission: 05/13/2025 GMLOS: 4.6 days Target Discharge Date: 05/17/2025 Discharge Planning Assessment completed at bedside and via phone with patient's daughter, Ismael. Miter Saw Operator identified self and role to the patient. [...] daughter, Ismael and grandchild. She ambulates to with a walker and she states that [...] unit as she had a foul odor. Miter Saw Operator spoke with daughter, Ismael. She is agreeable [...] were just approved for an aid through [employer] services. However, there is no aid availability to send into the home yet. Miter Saw Operator discusses with Ismael that we will haev [...] Services Nurse visit Community Agencies Currently Utilized [employer] [[employer] community case manager and they plan to send an aid when they have availability.] Community Referrals / Resources Provided Denies needs Who is the existing DME Provider? [employer] ([employer]) ) Established DME Comments Walker, shower chair, [...] Requested Patient expects to be discharged to: senior care care Does the patient wish to have family/friend/caregiver involved in their discharge planning? Yes Does the patient plan to return home to a community setting? No, patient to discharge to facility-based provider. See Discharge Disposition Discharge Disposition SNF Who is the existing DME Provider? [employer] ([employer]) ) Does the patient need discharge transportation arranged? Yes Transportation Arranged Ambulance Patient choice offered Patient declined List Provided Patient declined Patient Declined Other (must state reason) [Patient states she only wants to go to [place]] DC Planning Complete Discharge Milestones Yes Pharmacy: [facility] PCP: [facility] Providers this admission: Orthopedics for fracture Patient will make her own follow up appointments: no To be made by Custodial Facility Patient Goals: Goals per daughter and patient to SNF (pt-stated) Evaluation of progress towards goal: Patient and daughter agree she will need skilled care as a result of the fracture she has. PT Recommends: Pending evaluation OT Recommends: Pending evaluation Patient denies need for senior care facility list. She states she will not ever go to [facility]. She will only go to [facility]. Tasked transition team to send referral. Plan to prevent readmission: To senior care facility. As above lengthy discission with patient and daughter regarding the need for patient to be clean at home and take her showers and change her clothes. Patient/Family do not endorse any questions at this time. Patient Discharge Plan: Custodial Care at [facility] (accepted) and pending insurance authorization. Can't submit until we have PT/OT evaluation and recommendation. Patient is WBAT. Plan of Care: [facility] (SNF) [phone] Fax CRF at Discharge Follow up appointments: Orthopedics would like to see patient in two weeks. This was added to AVS for SNF to schedule for patient. Purvi Cardenas RN 05/14/25 1:25 PM [facility] 05-14-2025 Consult note Associated Order (s): [...] on 3L/NC. HISTORY OF PRESENT ILLNESS: Cuca Dee is a 79 y.o. White or female [...] Principal Problem Acute respiratory failure with hypoxia ([facility]) RT lesser trochanter fracture. PAST MEDICAL HISTORY: Past Medical History: Diagnosis Date Anemia Arthritis Asthma very mild, no inhaler use Cataract Dental disease Depression Diabetes mellitus ([facility]) Diabetes mellitus type 2, controlled ([facility]) Encephalitis Foot fracture, left GERD (gastroesophageal reflux disease) Heart murmur HLD (hyperlipidemia) Hypertension Incontinence Injury of back Insulin dependent diabetes mellitus Kidney failure STAGE 4 Lumbar spondylolysis Murmur Obesity CHELSEA (obstructive sleep apnea) no machine Peptic ulceration Peripheral vascular disease Shortness of breath Stroke ([facility]) 02/27/2024 TIA (transient ischemic attack) Upper respiratory infection UTI (urinary tract infection) Visual impairment Wears dentures PAST SURGICAL HISTORY: Past Surgical History: Procedure Laterality Date BREAST BIOPSY Right 03/01/2023 ULT BIOPSY CATARACT EXTRACTION SECTION SECTION 03/14/1974 EGD N/A 10/17/2019 Performed by Sarai Bell DO at [facility] H-PERCUTANEOUS CORONARY INTERVENTION HYSTEROSCOPY DILATION CURETTAGE MYOSURE N/A 01/29/2021 Performed by Jv Briones MD at [facility] INJECTION BLOCK EPIDURAL CAUDAL STEROID N/A 08/14/2022 Performed by Arnulfo Gonzalez MD at [facility] INJECTION BLOCK EPIDURAL CAUDAL STEROID N/A 06/06/2021 Performed by Arnulfo Gonzalez MD at [facility] INJECTION BLOCK EPIDURAL CAUDAL STEROID N/A 04/25/2021 Performed by Arnulfo Gonzalez MD at [facility] INJECTION CAUDAL EPIDURAL WITH CATHETER, STEROID N/A 05/03/2020 Performed by Arnulfo Gonzalez MD at [facility] INJECTION CAUDAL EPIDURAL WITH CATHETER, STEROID N/A 11/24/2019 Performed by Arnulfo Gonzalez MD at [facility] INJECTION CAUDAL EPIDURAL WITH CATHETER, STEROID N/A 04/21/2019 Performed by Arnulfo Gonzalez MD at [facility] MEDIAL BRANCH NERVE BLOCK Bilateral L 4/5, 5/1 Bilateral 08/18/2019 Performed by Arnulfo Gonzalez MD at [facility] INJECTION MEDIAL BRANCH NERVE BLOCK Bilateral L 4/5, 5/1 Bilateral 06/23/2019 Performed by Arnulfo Gonzalez MD at [facility] INJECTION STEROID EPI 1 WITH SEDATION Right L 4, 5 NR Right 03/17/2019 Performed by Arnulfo Gonzalez MD at [facility] INJECTION STEROID EPI 1 WITH SEDATION: right L45 nroot Right 08/15/2018 Performed by Arnulfo Gonzalze MD at [facility] LEFT L4, AND 5 NERVE ROOT INJECTION 2 OF 2 Left 07/22/2018 Performed by Arnulfo Gonzalez MD at [facility] LEFT L4, AND L5 NERVE ROOT 1 OF 2 Left 07/04/2018 Performed by Arnulfo Gonzalez MD at [facility] SHUNT INSERTION TONSILLECTOMY AGE 4 Transcutaneous aortic valve replacement/Transfemoral/Kwan N/A 08/17/2023 Performed by Chava Norris MD at [facility] CARDI[facility] CATH LAB[facility] Valvuloplasty aortic N/A 06/03/2023 Performed by Chava Norris MD at [facility]ATH [facility] ALLERGIES: No Known Allergies [...] 0 min Stress: Stress Concern Present (10/28/2024) [employer] - Occupational Stress Questionnaire Feeling of Stress : To some extent Social Connections: Moderately Integrated (10/28/2024) Social Connection and Isolation Panel [NHANES] Frequency of Communication with Friends and Family: Never Frequency of Social Gatherings with Friends and Family: More than three times a week Attends [employer] Services: More than 4 times per year [...] office to schedule prior to discharge at [phone]. Imaging [address] hip right without contrast Result [...] Range Extra Tube Auto Resulted Extra Urine Harbert Collection Time: 05/12/25 1:01 PM Specimen: Urine, Clean Catch Midstream Result Value Ref Range Extra Tube Auto Resulted Urine Culture Urine, Clean Catch Midstream Collection Time: 05/12/25 1:01 PM Specimen: Urine, Clean Catch Midstream Result Value Ref Range CULTURE RESULTS NO GROWTH AT <1000 CFU/mL POCT Nursing Urine Macroscopic UA Collection Time: 05/12/25 1:12 PM Result Value Ref Range POC Urine Specific [place] 1.015 1.010, 1.015, 1.020, 1.025 POC Urine [...] Abnormality Status --------- ------ Troponin I, High Sensiti...[[id number]] Abnormal Final result Troponin I, High Sensiti...[[id number]] Abnormal Final result Please view results for [...] Procedure Abnormality Status --------- ------ Light Blue Top[[id number]] Final result Please view results for these [...] to the algorithms linked below. Emergency Patient: [email or web address] Inpatient: [email or web address] Bedside Glucose *Place/Obtain serum glucose if >500 per glucometer. Collection Time: 05/13/25 2:39 PM Result Value Ref Range Bedside Glucose (POC) 384 (H) 65 - 99 mg/dL Extra Tubes Collection Time: 05/13/25 7:54 PM Narrative The following orders were created for panel order Extra Tubes. Procedure Abnormality Status --------- ------ PST TOP[[id number]] Final result Please view results for these [...] Procedure Component Value Units Date/Time Blood culture [[id number]] Collected: 05/13/25 1109 Specimen: Blood, Venous Updated: 05/14/25 1002 CULTURE RESULTS NO GROWTH <24 HRS Blood culture [[id number]] Collected: 05/13/25 1108 Specimen: Blood, Venous Updated: 05/14/25 1002 CULTURE RESULTS NO GROWTH <24 HRS Narrative: Only aerobic bottle received Urine Culture Urine, Clean Catch Midstream [[id number]] Collected: 05/12/25 1301 Specimen: Urine, Clean Catch Midstream Updated: 05/13/25 1839 CULTURE RESULTS NO GROWTH AT <1000 CFU/mL DAGO SCHAEFER APRN-KAIDEN Kim 05/14/25 1231 [facility] Work Phone: 05-14-2025 Consult note Associated Order [...] on 3L/NC. HISTORY OF PRESENT ILLNESS: Cuca Dee is a 79 y.o. White or female [...] Principal Problem Acute respiratory failure with hypoxia ([facility]) RT lesser trochanter fracture. PAST MEDICAL HISTORY: Past Medical History: Diagnosis Date Anemia Arthritis Asthma very mild, no inhaler use Cataract Dental disease Depression Diabetes mellitus ([facility]) Diabetes mellitus type 2, controlled [place] Encephalitis Foot fracture, left GERD (gastroesophageal reflux disease) Heart murmur HLD (hyperlipidemia) Hypertension Incontinence Injury of back Insulin dependent diabetes mellitus Kidney failure STAGE 4 Lumbar spondylolysis Murmur Obesity CHELSEA (obstructive sleep apnea) no machine Peptic ulceration Peripheral vascular disease Shortness of breath Stroke (CMS-HCC) 02/27/2024 TIA (transient ischemic attack) Upper respiratory infection UTI (urinary tract infection) Visual impairment Wears dentures PAST SURGICAL HISTORY: Past Surgical History: Procedure Laterality Date BREAST BIOPSY Right 03/01/2023 ULT BIOPSY CATARACT EXTRACTION SECTION SECTION 03/14/1974 EGD N/A 10/17/2019 Performed by Sarai Bell DO at [facility] H-PERCUTANEOUS CORONARY INTERVENTION HYSTEROSCOPY DILATION CURETTAGE MYOSURE N/A 01/29/2021 Performed by Jv Briones MD at [facility] INJECTION BLOCK EPIDURAL CAUDAL STEROID N/A 08/14/2022 Performed by Arnulfo Gonzalez MD at [facility] INJECTION BLOCK EPIDURAL CAUDAL STEROID N/A 06/06/2021 Performed by Arnulfo Gonzalez MD at [facility] INJECTION BLOCK EPIDURAL CAUDAL STEROID N/A 04/25/2021 Performed by Arnulfo Gonzalez MD at [facility] INJECTION CAUDAL EPIDURAL WITH CATHETER, STEROID N/A 05/03/2020 Performed by Arnulfo Gonzalez MD at [facility] INJECTION CAUDAL EPIDURAL WITH CATHETER, STEROID N/A 11/24/2019 Performed by Arnulfo Gonzalez MD at [facility] INJECTION CAUDAL EPIDURAL WITH CATHETER, STEROID N/A 04/21/2019 Performed by Arnulfo Gonzalez MD at [facility] INJECTION MEDIAL BRANCH NERVE BLOCK Bilateral L 4/5, 5/1 Bilateral 08/18/2019 Performed by Arnulfo Gonzalez MD at [facility] INJECTION MEDIAL BRANCH NERVE BLOCK Bilateral L 4/5, 5/1 Bilateral 06/23/2019 Performed by Arnulfo Gonzalez MD at [facility] INJECTION STEROID EPI 1 WITH SEDATION Right L 4, 5 NR Right 03/17/2019 Performed by Arnulfo Gonzalez MD at [facility] INJECTION STEROID EPI 1 WITH SEDATION: right L45 nroot Right 08/15/2018 Performed by Arnulfo Gonzalez MD at [facility] LEFT L4, AND 5 NERVE ROOT INJECTION 2 OF 2 Left 07/22/2018 Performed by Arnulfo Gonzalez MD at [facility] LEFT L4, AND L5 NERVE ROOT 1 OF 2 Left 07/04/2018 Performed by Arnulfo Gonzalez MD at [facility] SHUNT INSERTION TONSILLECTOMY AGE 4 Transcutaneous aortic valve replacement/Transfemoral/Kwan N/A 08/17/2023 Performed by Chvaa Norris MD at [facility] Valvuloplasty aortic N/A 06/03/2023 Performed by Chava Norris MD at [facility] ALLERGIES: No Known Allergies [...] 0 min Stress: Stress Concern Present (10/28/2024) [employer] - Occupational Stress Questionnaire Feeling of Stress : To some extent Social Connections: Moderately Integrated (10/28/2024) Social Connection and Isolation Panel [NHANES] Frequency of Communication with Friends and Family: Never Frequency of Social Gatherings with Friends and Family: More than three times a week Attends [employer] Services: More than 4 times per year [...] office to schedule prior to discharge at [phone]. [address] hip right without contrast Result [...] Range Extra Tube Auto Resulted Extra Urine Harbert Collection Time: 05/12/25 1:01 PM Specimen: Urine, Clean Catch Midstream Result Value Ref Range Extra Tube Auto Resulted Urine Culture Urine, Clean Catch Midstream Collection Time: 05/12/25 1:01 PM Specimen: Urine, Clean Catch Midstream Result Value Ref Range CULTURE RESULTS NO GROWTH AT <1000 CFU/mL POCT Nursing Urine Macroscopic UA Collection Time: 05/12/25 1:12 PM Result Value Ref Range POC Urine Specific [place] 1.015 1.010, 1.015, 1.020, 1.025 POC Urine [...] Abnormality Status --------- ------ Troponin I, High Sensiti...[[id number]] Abnormal Final result Troponin I, High Sensiti...[[id number]] Abnormal Final result Please view results for [...] Procedure Abnormality Status --------- ------ Light Blue Top[[id number]] Final result Please view results for these [...] to the algorithms linked below. Emergency Patient: [email or web address] Inpatient: [email or web address] Bedside Glucose *Place/Obtain serum glucose if >500 per glucometer. Collection Time: 05/13/25 2:39 PM Result Value Ref Range Bedside Glucose (POC) 384 (H) 65 - 99 mg/dL Extra Tubes Collection Time: 05/13/25 7:54 PM Narrative The following orders were created for panel order Extra Tubes. Procedure Abnormality Status --------- ------ PST TOP[[id number]] Final result Please view results for these [...] Procedure Component Value Units Date/Time Blood culture [[id number]] Collected: 05/13/25 1109 Specimen: Blood, Venous Updated: 05/14/25 1002 CULTURE RESULTS NO GROWTH <24 HRS Blood culture [[id number]] Collected: 05/13/25 1108 Specimen: Blood, Venous Updated: 05/14/25 1002 CULTURE RESULTS NO GROWTH <24 HRS Narrative: Only aerobic bottle received Urine Culture Urine, Clean Catch Midstream [[id number]] Collected: 05/12/25 1301 Specimen: Urine, Clean Catch Midstream Updated: 05/13/25 1839 CULTURE RESULTS NO GROWTH AT <1000 CFU/mL DAGO SCHAEFER APRN-BARTOLO Schaefer APRN-BARTOLO 05/14/25 1231 Associated Order(s): PHARMACY TO DOSE VANCO Pharmacokinetic Consult - Vancomycin Dosing Cuca Dee is a 79 y.o. female for whom [...] Procedure Component Value Units Date/Time Blood culture [[id number]] Collected: 05/13/25 1109 Specimen: Blood, Venous Updated: 05/13/25 1122 Blood culture [[id number]] Collected: 05/13/25 1108 Specimen: Blood, Venous Updated: 05/13/25 1122 Urine Culture Urine, Clean Catch Midstream [[id number]] Collected: 05/12/25 1301 Specimen: Urine, Clean Catch [...] Joie Garcia RPH documented in this encounter [facility] 05-14-2025 Progress note Formatting of t his note might be different from the original. DISCHARGE PLANNING NOTE Referral sent to. [facility]/ [facility], [place], [place] (P# ; F# ) [facility] [employer] [facility] 05-14-2025 Progress note Formatting of t his note is different from the original. Physical Therapy PT Type of Visit: (P) Medical deferral Reason For Medical Deferral: (P) Provider input needed (Await ortho consult for weightbearing status.) PT will continue to follow this patient. RN aware that therapy awaits weightbearing status. Thank you for this referral. [employer] [facility] 05-14-2025 Plan of care note Problem: Pain Goal: Patient goal is pain score less than 4, able to rest, and participant in treatment plan as appropriate Description: INTERVENTIONS: 1. Encourage patient or legal benefits representative to report early pain and ask [...] per policy 9. Teach patient or legal benefits representative interventions for comforting Outcome: Progressing Note: [...] at the bedside 7. Instruct patient/ patient benefits representative about use of safety devices 8. Include patient/ patient benefits representative in decisions related to safety Outcome: [...] hygiene technique. 7. Identify and instruct patient/patient benefits representative in use of appropriate isolation precautions for identified infection/symptoms. 8. Provide and discuss with patient/patient benefits representative on educational MDRO sheet. 9. Encourage and monitor nutritional status daily and consult joist setter if indicated. 10. Implement neutropenic guidelines as needed. Outcome: Progressing Note: Evaluation of progress towards goal: Pt afebrile at this time, continue to monitor for signs infection Problem: Knowledge Deficit Goal: Patient/patient benefits representative demonstrates understanding of disease process, treatment [...] Handoff to next level of care provider (date night caregiver, PCP, home care). 5. Complete follow up [...] Collaborate with ancillary departments 14. Include patient/patient benefits representative in decisions related to anxiety Outcome: [...] care 6. Collaborate with pastoral/spiritual care, social media content specialist, mental health counselor as needed. 7. Instruct patient on diversional activities such as physical activity, distraction, and deep breathing exercises to assist with coping 8. Involve patient's benefits representative in care Outcome: Progressing Note: Evaluation [...] be free from fall Description: Interventions: 1. Mamou to environment 2. Hourly rounds addressing the [...] non-skid footwear 11. Teach patient and patient benefits representative to maintain environment for safety and [...] (cane, walker) within reach 19. Request patient benefits representative bring adaptive equipment/mobility aids from home or obtain and provide as needed 20. Consult pharmacy regarding effects of med's affecting mobility, cognition, and alternatives 21. Obtain physician order for PT if risk factors associated with mobility are present 22. Obtain physician order for OT as appropriate 23. Utilize diversional activities 24. Educate patient and patient benefits representative how to maintain a safe environment during visitation times (notify nurse prior to leaving bedside) 25. Consider appropriateness of medical or non-medical front desk specialist 26. Set up voiding schedule as appropriate [...] supplement as ordered 13. Collaborate with clinical joist setter 14. Include patient/ patient's benefits representative in decisions related to nutrition Outcome: [...] skin protectant applied as needed, labs monitored. [facility] [employer] [facility] 05-14-2025 History and physical note Images from the original note were not included. [facility] ATUL ZAB[facility] [address] [facility] [id number] Hospital Medicine History & Physical Patient: Cuca Dee Date of : 1945 Room: PCP: KAIDEN Werner Admission date: 05/13/2025 10:27 AM Encounter date: 05/14/25 Hospital Day: 2 SUBJECTIVE Cuca Dee is a 79 y.o. [...] taking: Reported on 05/13/2025 08/24/24 Vj Gray APRN-CORPORATE STRATEGIST Code Status: Full Code Past Medical History: Patient has a past medical history of Anemia, Arthritis, Asthma, Cataract, Dental disease, Depression, [place] Diabetes mellitus type 2, controlled [place] Encephalitis, Foot fracture, left, GERD (gastroesophageal reflux disease), Heart murmur, HLD (hyperlipidemia), Hypertension, Incontinence, Injury of back, Insulin dependent diabetes mellitus, Kidney failure, Lumbar spondylolysis, Murmur, Obesity, CHELSEA (obstructive sleep apnea), Peptic ulceration, Peripheral vascular disease, Shortness of breath, Stroke [place] (02/27/2024), TIA (transient ischemic attack), Upper respiratory [...] Normal pulses. Comments: Sinus tachycardia noted on psychiatric secretary heart rate of 104 Pulmonary: Effort: Pulmonary [...] Tubes. Procedure Abnormality Status --------- ------ PST TOP[[id number]] Final result Please view results for these [...] valve replacement. The distal portion of a WELD ENGINEER shunt is seen within the abdomen. [...] ovarian. There is partial visualization of a WELD ENGINEER shunt and changes of aortic valve [...] hyperlipidemia associated with type 2 diabetes mellitus ([facility]) Obstructive sleep apnea syndrome Essential (primary) hypertension Acute on chronic diastolic congestive heart failure ([facility]) Stage 3b chronic kidney disease ([facility]) Type 2 diabetes mellitus with diabetic chronic kidney disease ([facility]) Iron deficiency anemia Hypomagnesemia Closed fracture of right hip [place] Nondisplaced fracture of lesser trochanter of right femur, initial encounter for closed fracture [place] ASSESSMENT & PLAN Acute respiratory failure with [...] and treat. DC planning: Discharge home versus senior care facility in 1-2 days. Sepsis suspected, yes-without [...] KAIDEN Hopkins, 05/14/2025 1:37 PM [facility] Internal Medicine 7AM-7PM & 7PM-7AM: EpicChat or [...] a normal limit 1.05 on 08/23/2024. [facility] 05-14-2025 History and physical note Images from the original note were not included. [facility] INTERNAL MEDICINE [facility] [address] [place] [id number] Hospital Medicine History & Physical Patient: Cuca Dee Date of : 1945 Room: PCP: KAIDEN Werner Admission date: 05/13/2025 10:27 AM Encounter date: 05/14/25 Hospital Day: 2 SUBJECTIVE Cuca Dee is a 79 y.o. [...] Asthma, Cataract, Dental disease, Depression, Diabetes mellitus ([facility]), Diabetes mellitus type 2, controlled ([facility]), Encephalitis, Foot fracture, left, GERD (gastroesophageal reflux disease), Heart murmur, HLD (hyperlipidemia), Hypertension, Incontinence, Injury of back, Insulin dependent diabetes mellitus, Kidney failure, Lumbar spondylolysis, Murmur, Obesity, CHELSEA (obstructive sleep apnea), Peptic ulceration, Peripheral vascular disease, Shortness of breath, Stroke ([facility]) (02/27/2024), TIA (transient ischemic attack), Upper respiratory [...] Normal pulses. Comments: Sinus tachycardia noted on psychiatric secretary heart rate of 104 Pulmonary: Effort: Pulmonary [...] Tubes. Procedure Abnormality Status --------- ------ PST TOP[[id number]] Final result Please view results for these [...] valve replacement. The distal portion of a WELD ENGINEER shunt is seen within the abdomen. [...] ovarian. There is partial visualization of a WELD ENGINEER shunt and changes of aortic valve [...] Principal Problem: Acute respiratory failure with hypoxia ([facility]) Active Problems: 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 mellitus ([facility]) Mixed diabetic hyperlipidemia associated with type 2 diabetes mellitus [place] Obstructive sleep apnea syndrome Essential (primary) hypertension Acute on chronic diastolic congestive heart failure [place] Stage 3b chronic kidney disease ([facility] Type 2 diabetes mellitus with diabetic chronic kidney disease [place] Iron deficiency anemia Hypomagnesemia Closed fracture of right hip [place] Nondisplaced fracture of lesser trochanter of right femur, initial encounter for closed fracture [place] ASSESSMENT & PLAN Acute respiratory failure with [...] and treat. DC planning: Discharge home versus senior care facility in 1-2 days. Sepsis suspected, yes-without [...] Antibiotics; Zosyn and vancomycin. Vasopressors; not required. Vj Gray, ALICE-BARTOLO, 05/14/2025 1:37 PM [facility] 7AM-7PM & 7PM-7AM: EpicChat or page through On-Call Finder. This note is dictated with the use of M*Modal. Please note that this dictation was completed with computer voice recognition software. Quite often unanticipated grammatical, syntax, homophones, and other interpretive errors are inadvertently transcribed by the computer software. Please disregard these errors. Please excuse any errors that have escaped final proofreading. Vj Gray, ALICE-BARTOLO 05/14/25 1314 Physician Attestation I, Felix Hallman [...] 1.05 on 08/23/2024. documented in this encounter [facility] 05-13-2025 Plan of care note Problem: Pain Goal: Patient goal is pain score less than 4, able to rest, and participant in treatment plan as appropriate Description: INTERVENTIONS: 1. Encourage patient or legal benefits representative to report early pain and ask [...] per policy 9. Teach patient or legal benefits representative interventions for comforting Outcome: Progressing Note: [...] at the bedside 7. Instruct patient/ patient benefits representative about use of safety devices 8. Include patient/ patient benefits representative in decisions related to safety Outcome: [...] hygiene technique. 7. Identify and instruct patient/patient benefits representative in use of appropriate isolation precautions for identified infection/symptoms. 8. Provide and discuss with patient/patient benefits representative on educational MDRO sheet. 9. Encourage and monitor nutritional status daily and consult joist setter if indicated. 10. Implement neutropenic guidelines as needed. Outcome: Progressing Note: Evaluation of progress towards goal: Pt receiving IV ATB. [facility] 05-13-2025 Nurse Note Pt pulled put her IV and when show card writer asked why she stated, I don't know, [...] Pt pulled put her IV and when show card writer asked why she stated, I don't know, [...] Description: INTERVENTIONS: 1. Encourage patient or legal benefits representative to report early pain and ask [...] per policy 9. Teach patient or legal benefits representative interventions for comforting Outcome: Progressing Note: [...] at the bedside 7. Instruct patient/ patient benefits representative about use of safety devices 8. Include patient/ patient benefits representative in decisions related to safety Outcome: [...] hygiene technique. 7. Identify and instruct patient/patient benefits representative in use of appropriate isolation precautions for identified infection/symptoms. 8. Provide and discuss with patient/patient benefits representative on educational MDRO sheet. 9. Encourage and monitor nutritional status daily and consult joist setter if indicated. 10. Implement neutropenic guidelines as needed. Outcome: Progressing Note: Evaluation of progress towards goal: Isolation precautions followed per protocol. Equipment cleaned between patients. Handwashing protocol followed. [facility] 05-13-2025 Consult note Associated Order (s): PHARMACY TO DOSE VANCO Pharmacokinetic Consult - Vancomycin Dosing Cuca Dee is a 79 y.o. female for whom [...] Procedure Component Value Units Date/Time Blood culture [[id number]] Collected: 05/13/25 1109 Specimen: Blood, Venous Updated: 05/13/25 1122 Blood culture [[id number]] Collected: 05/13/25 1108 Specimen: Blood, Venous Updated: 05/13/25 1122 Urine Culture Urine, Clean Catch Midstream [[id number]] Collected: 05/12/25 1301 Specimen: Urine, Clean Catch [...] sepsis and crcl 29.6ml/min Joie Garcia PharmD [facility] documented in this encounter [facility] 05-13-2025 Physician Emergency department Note Associated Order(s): Critical Care Images from the original note were not included. [facility] Pt Name: Cuca Dee Birthdate: [...] use Cataract Dental disease Depression Diabetes mellitus [place] Diabetes mellitus type 2, controlled ([facility] Encephalitis Foot fracture, left GERD (gastroesophageal reflux disease) Heart murmur HLD (hyperlipidemia) Hypertension Incontinence Injury of back Insulin dependent diabetes mellitus Kidney failure STAGE 4 Lumbar spondylolysis Murmur Obesity CHELSEA (obstructive sleep apnea) no machine Peptic ulceration Peripheral vascular disease Shortness of breath Stroke [place] 02/27/2024 TIA (transient ischemic attack) Upper respiratory infection UTI (urinary tract infection) Visual impairment Wears dentures Past Surgical History: Past Surgical History: Procedure Laterality Date BREAST BIOPSY Right 03/01/2023 ULT BIOPSY CATARACT EXTRACTION SECTION SECTION 03/14/1974 EGD N/A 10/17/2019 Performed by Sarai Bell DO at [facility] H-PERCUTANEOUS CORONARY INTERVENTION HYSTEROSCOPY DILATION CURETTAGE MYOSURE N/A 01/29/2021 Performed by Jv Briones MD at [facility] INJECTION BLOCK EPIDURAL CAUDAL STEROID N/A 08/14/2022 Performed by Arnulfo Gonzalez MD at [facility] IN[facility] BLOCK EPIDURAL CAUDAL STEROID N/A 06/06/2021 Performed by Arnulfo Gonazlez MD at [facility] BLOCK EPIDURAL CAUDAL STEROID N/A 04/25/2021 Performed by Arnulfo Gonzalez MD at [facility] IN[facility] CAUDAL EPIDURAL WITH CATHETER, STEROID N/A 05/03/2020 Performed by Arnulfo Gonzalez MD at [facility] IN[facility]CTION CAUDAL EPIDURAL WITH CATHETER, STEROID N/A 11/24/2019 Performed by Arnulfo Gonzalez MD at [facility] INJECTION CAUDAL EPIDURAL WITH CATHETER, STEROID N/A 04/21/2019 Performed by Arnulfo Gonzalez MD at [facility] MEDIAL BRANCH NERVE BLOCK Bilateral L 4/5, 5/1 Bilateral 08/18/2019 Performed by Arnulfo Gonzalez MD at [facility] INJECTION MEDIAL BRANCH NERVE BLOCK Bilateral L 4/5, 5/1 Bilateral 06/23/2019 Performed by Arnulfo Gonzlaez MD at [facility] INJECTION STEROID EPI 1 WITH SEDATION Right L 4, 5 NR Right 03/17/2019 Performed by Arnulfo Gonzalez MD at [facility] INJECTION STEROID EPI 1 WITH SEDATION: right L45 nroot Right 08/15/2018 Performed by Arnulfo Gonzalez MD at [facility] LEFT L4, AND 5 NERVE ROOT INJECTION 2 OF 2 Left 07/22/2018 Performed by Arnulfo Gonzalez MD at [facility] LEFT L4, AND L5 NERVE ROOT 1 OF 2 Left 07/04/2018 Performed by Arnulfo Gonzalez MD at [facility] SHUNT INSERTION TONSILLECTOMY AGE 4 Transcutaneous aortic valve replacement/Transfemoral/Kwan N/A 08/17/2023 Performed by Chava Norris MD at [facility] C[facility] CATH LABS Valvuloplasty aortic N/A 06/03/2023 Performed by Chava Norris MD at [facility] Family History: Family History [...] 0 min Stress: Stress Concern Present (10/28/2024) [employer] - Occupational Stress Questionnaire Feeling of Stress : To some extent Social Connections: Moderately Integrated (10/28/2024) Social Connection and Isolation Panel [NHANES] Frequency of Communication with Friends and Family: Never Frequency of Social Gatherings with Friends and Family: More than three times a week Attends [employer] Services: More than 4 times per year [...] provider(s): 11:[address] Martins diversional therapist's assistant for Dr Joiner, after discussion with the patient, she was a patient of Deja Stinson who had previously worked in Dr joiner's [...] Course: ED Course as of 05/15/25 1410 Sun May 13, 2025 1049 ECG notable for sinus tachycardia. LBBB. [SURINDER] ED Course User Index [SURINDER] Jack Milligan DO Clinical Impressions as of 05/15/25 1410 Acute respiratory failure with hypoxia ([facility]) Nondisplaced fracture of lesser trochanter of right femur, initial encounter for closed fracture ([facility]) Generalized weakness Closed fracture of right hip, initial encounter ([facility]) Hypoxia Type 2 diabetes mellitus with hypoglycemia without coma, with long-term current use of insulin ([facility]) . ED Disposition ED Disposition Admit Date/Time [place] May 13, 2025 1:37 PM Comment At this time, the patient has objective evidence of an acute process that will likely require hospitalization for greater than 2 midnights. The patient will be admitted. Medications Prescribed this Visit This print group is not available in inpatient encounters. Please contact a computer systems design analyst. Shared/Split Visit 11:24 EDT Jazmine Huber (maria eugenia), scribed for and in the presence of: Dr. Heri Milligan who performed the above service. IDr. Milligan personally performed a [id number] diagnostic evaluation on this patient. I personally made and approved the management plan for this patient and take responsibility for the patient management. Additional Notes/Findings: Cuca Dee is a 79 y.o. female presenting to [...] Phillips 05/13/25 1200 KAIDEN Phillips 05/13/25 1255 KAIDEN Phillips 05/13/25 1305 KAIDEN Phillips 05/13/25 1341 KAIDEN Phillips 05/13/25 2121 Jack Milligan DO 05/14/25 7803 [facility] 05-13-2025 Emergency department Note Associated Order(s): Critical Care Images from the original note were not included. [facility] Pt Name: Cuca Dee Birthdate: [...] use Cataract Dental disease Depression Diabetes mellitus [place] Diabetes mellitus type 2, controlled ([facility] Encephalitis Foot fracture, left GERD (gastroesophageal reflux disease) Heart murmur HLD (hyperlipidemia) Hypertension Incontinence Injury of back Insulin dependent diabetes mellitus Kidney failure STAGE 4 Lumbar spondylolysis Murmur Obesity CHELSEA (obstructive sleep apnea) no machine Peptic ulceration Peripheral vascular disease Shortness of breath Stroke [place] 02/27/2024 TIA (transient ischemic attack) Upper respiratory infection UTI (urinary tract infection) Visual impairment Wears dentures Past Surgical History: Past Surgical History: Procedure Laterality Date BREAST BIOPSY Right 03/01/2023 ULT BIOPSY CATARACT EXTRACTION SECTION SECTION 03/14/1974 EGD N/A 10/17/2019 Performed by Sarai Bell DO at [facility] H-PERCUTANEOUS CORONARY INTERVENTION HYSTEROSCOPY DILATION CURETTAGE MYOSURE N/A 01/29/2021 Performed by Jv Briones MD at [facility] INJECTION BLOCK EPIDURAL CAUDAL STEROID N/A 08/14/2022 Performed by Arnulfo Gonzalez MD at [facility] INJECTION BLOCK EPIDURAL CAUDAL STEROID N/A 06/06/2021 Performed by Arnulfo Gonzalez MD at [facility] INJECTION BLOCK EPIDURAL CAUDAL STEROID N/A 04/25/2021 Performed by Arnulfo Gonzalez MD at [facility] INJECTION CAUDAL EPIDURAL WITH CATHETER, STEROID N/A 05/03/2020 Performed by Arnulfo Gonzalez MD at [facility] INJECTION CAUDAL EPIDURAL WITH CATHETER, STEROID N/A 11/24/2019 Performed by Arnulfo Gonzalez MD at [facility] INJECTION CAUDAL EPIDURAL WITH CATHETER, STEROID N/A 04/21/2019 Performed by Arnulfo Gonzalez MD at [facility] INJECTION MEDIAL BRANCH NERVE BLOCK Bilateral L 4/5, 5/1 Bilateral 08/18/2019 Performed by Arnulfo Gonzalez MD at [facility] MEDIAL BRANCH NERVE BLOCK Bilateral L 4/5, 5/1 Bilateral 06/23/2019 Performed by Arnulfo Gonzalez MD at [facility] INJECTION STEROID EPI 1 WITH SEDATION Right L 4, 5 NR Right 03/17/2019 Performed by Arnulfo Gonzalez MD at [facility] INJECTION STEROID EPI 1 WITH SEDATION: right L45 nroot Right 08/15/2018 Performed by Arnulfo Gonzalez MD at [facility] LEFT L4, AND 5 NERVE ROOT INJECTION 2 OF 2 Left 07/22/2018 Performed by Arnulfo Gonzalez MD at [facility] LEFT L4, AND L5 NERVE ROOT 1 OF 2 Left 07/04/2018 Performed by Arnulfo Gonzalez MD at [facility] SHUNT INSERTION TONSILLECTOMY AGE 4 Transcutaneous aortic valve replacement/Transfemoral/Kwan N/A 08/17/2023 Performed by Chava Norris MD at [facility] C[facility] CATH [facility]S Valvuloplasty aortic N/A 06/03/2023 Performed by Chava Norris MD at [facility] CATH [facility] Family History: Family History [...] 0 min Stress: Stress Concern Present (10/28/2024) [employer] - Occupational Stress Questionnaire Feeling of Stress : To some extent Social Connections: Moderately Integrated (10/28/2024) Social Connection and Isolation Panel [NHANES] Frequency of Communication with Friends and Family: Never Frequency of Social Gatherings with Friends and Family: More than three times a week Attends [employer] Services: More than 4 times per year [...] provider(s): 11:[address] Martins diversional therapist's assistant for Dr Joiner, after discussion with the patient, she was a patient of Deja Stinson who had previously worked in Dr joiner's [...] Course: ED Course as of 05/15/25 1410 [place] May 13, 2025 1049 ECG notable for sinus tachycardia. LBBB. [SURINDER] ED Course User Index [SURINDER] Jack Milligan, DO Clinical Impressions as of 05/15/25 1410 Acute respiratory failure with hypoxia (CMS-HCC) Nondisplaced fracture of lesser trochanter of right femur, initial encounter for closed fracture (CMS-HCC) Generalized weakness Closed fracture of right hip, initial encounter ([facility]) Hypoxia Type 2 diabetes mellitus with hypoglycemia without coma, with long-term current use of insulin ([facility]) . ED Disposition ED Disposition Admit Date/Time [place] May 13, 2025 1:37 PM Comment At this time, the patient has objective evidence of an acute process that will likely require hospitalization for greater than 2 midnights. The patient will be admitted. Medications Prescribed this Visit This print group is not available in inpatient encounters. Please contact a computer systems design analyst. Shared/Split Visit 11:24 EDT Jazmine Huber (maria eugenia), scribed for and in the presence of: Dr. Heri Milligan who performed the above service. IDr. Milligan personally performed a [id number] diagnostic evaluation on this patient. I personally made and approved the management plan for this patient and take responsibility for the patient management. Additional Notes/Findings: Cuca Dee is a 79 y.o. female presenting to [...] are mis-transcribed. Jazmine Jimenez 05/13/25 1128 Jazmine Bustillo APRN-BARTOLO 05/13/25 1200 Jazmine Bustillo APRN-BARTOLO 05/13/25 1255 Jazmine Bustillo APRN-BARTOLO 05/13/25 1305 Jazmine Bustillo APRN-BARTOLO 05/13/25 1341 Jazmine Bustillo APRN-BARTOLO 05/13/25 2121 Jack Milligan DO 05/14/25 2254 documented in this encounter [facility] 05-13-2025 Note Procedure: Chest x-ray performed Number of views:1 History:Shortness of breath Comparison:04/28/2025 Findings: The heart and lungs show no acute findings, and the mediastinum and stanley are grossly negative . Tube overlying right chest stable. Impression: 1. No acute change. Finalized by Berry Wyman MD on 05/13/2025 11:01 AM [facility] Note Division of Infectio us Diseases - Outpatient Clinic Note Patient name: Cuca Dee Patient Today's Date and Time: 04/05/2025, 11:44 AM Primary Care Physician: Pam Stinson MD Reason for consultation / Chief complaint: Bloodstream infection History of Present Illness: This is a 79-year-old female patient who was initially admitted on February 14, 2025. 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 She also previously underwent a TAVR and has a WELD ENGINEER shunt for NPH. She presented to the [...] Diagnosis Date Aortic stenosis Asthma Atrial fibrillation ([facility]) Cancer ([facility]) 02/2023 right breast, metastatic Cataract CKD (chronic kidney disease) Coronary artery disease Depression Diabetes mellitus ([facility]) Dyslipidemia GERD (gastroesophageal reflux disease) Hypertension Ischemic stroke ([facility]) 02/2024 seen at [facility] NPH (normal pressure hydrocephalus) ([facility]) PVD (peripheral vascular disease) Sleep apnea Past [...] VENTRICULOPERITONEAL SHUNT 06/25/2020 [employer] programmable valve. Medications: Social History: Social History [...] Resource Strain: Medium Risk (10/28/2024) Received from [facility] Overall Financial Resource Strain (CARDIA) Difficulty of Paying Living Expenses: Somewhat hard Food Insecurity: No Food Insecurity (04/04/2025) Received from [facility] Hunger Screening Within the past 12 months we worried whether our food would run out before we got money to buy more.: Never True Within the past 12 months the food we bought just didn't last and we didn't have money to get more.: Never True Transportation Needs: No Transportation Needs (03/16/2025) Received from [facility] PRAPARE - Transportation Lack of Transportation (Medical): No Lack of Transportation (Non-Medical): No Physical Activity: Inactive (10/28/2024) Received from [facility] Exercise Vital Sign Days of Exercise per Week: 0 days Minutes of Exercise per Session: 0 min Stress: Stress Concern Present (10/28/2024) Received from [facility] [employer] - Occupational Stress Questionnaire Feeling of Stress : To some extent Social Connections: Moderately Integrated (10/28/2024) Received from [facility] Social Connection and Isolation Panel [NHANES] Frequency of Communication with Friends and Family: Never Frequency of Social Gatherings with Friends and Family: More than three times a week Attends [employer] Services: More than 4 times per year [...] file Housing Stability: (more content not included)... [facility] 04-04-2025 History of Present illness Narrative Images from the original note were not included. [address] [place] [id number] SUBJECTIVE: Patient ID: Cuca Dee is a 79 y.o. female. Chief Complaint Patient presents with follow up Patient is accompanied by daughter today. States [employer] will be coming in for evaluation to assist in the home. Her daughter resides with patient who cares for her; assist with meal preparation and ADLS. Daughter would like assistance in the home. Patient and daughter have discussed possible prison placement as well but this is not [...] 10/17/2019 Performed by Sarai Bell DO at [facility] H-PERCUTANEOUS CORONARY INTERVENTION HYSTEROSCOPY DILATION CURETTAGE MYOSURE N/A 01/29/2021 Performed by Jv Briones MD at [facility] IN[facility]CTION BLOCK EPIDURAL CAUDAL STEROID N/A 08/14/2022 Performed by Arnulfo Gonzalez MD at [facility] BLOCK EPIDURAL CAUDAL STEROID N/A 06/06/2021 Performed by Arnulfo Gonzalez MD at [facility] BLOCK EPIDURAL CAUDAL STEROID N/A 04/25/2021 Performed by Arnulfo Gonzalez MD at [facility] IN[facility] CAUDAL EPIDURAL WITH CATHETER, STEROID N/A 05/03/2020 Performed by Arnulfo Gonzalez MD at [facility] CAUDAL EPIDURAL WITH CATHETER, STEROID N/A 11/24/2019 Performed by Arnulfo Gonzalez MD at [facility] IN[facility] CAUDAL EPIDURAL WITH CATHETER, STEROID N/A 04/21/2019 Performed by Arnulfo Gonzalez MD at [facility] INJECTION MEDIAL BRANCH NERVE BLOCK Bilateral L 4/5, 5/1 Bilateral 08/18/2019 Performed by Arnulfo Gonzalez MD at [facility] INJECTION MEDIAL BRANCH NERVE BLOCK Bilateral L 4/5, 5/1 Bilateral 06/23/2019 Performed by Arnulfo Gonzalez MD at [facility] INJECTION STEROID EPI 1 WITH SEDATION Right L 4, 5 NR Right 03/17/2019 Performed by Arnulfo Gonzalez MD at [facility] INJECTION STEROID EPI 1 WITH SEDATION: right L45 nroot Right 08/15/2018 Performed by Arnulfo Gonzalez MD at [facility] LEFT L4, AND 5 NERVE ROOT INJECTION 2 OF 2 Left 07/22/2018 Performed by Arnulfo Gonzalez MD at [facility] LEFT L4, AND L5 NERVE ROOT 1 OF 2 Left 07/04/2018 Performed by Arnulfo Gonzalez MD at [facility] SHUNT INSERTION TONSILLECTOMY AGE 4 Transcutaneous aortic valve replacement/Transfemoral/Kwan N/A 08/17/2023 Performed by Chava Norris MD at [facility] Valvuloplasty aortic N/A 06/03/2023 Performed by Chava Norris MD at [facility] Past Medical History: Diagnosis Date Anemia Arthritis Asthma very mild, no inhaler use Cataract Dental disease Depression Diabetes mellitus ([facility]) Diabetes mellitus type 2, controlled [place] Encephalitis Foot fracture, left GERD (gastroesophageal reflux disease) Heart murmur HLD (hyperlipidemia) Hypertension Incontinence Injury of back Insulin dependent diabetes mellitus Kidney failure STAGE 4 Lumbar spondylolysis Murmur Obesity CHELSEA (obstructive sleep apnea) no machine Peptic ulceration Peripheral vascular disease Shortness of breath Stroke ([facility]) 02/27/2024 TIA (transient ischemic attack) Upper respiratory [...] orders for this visit: Moderate major depression (CMS-HCC) Insomnia, unspecified type Normal pressure hydrocephalus (CMS-HCC) Acute on chronic diastolic heart failure (CMS-HCC) Diabetes mellitus type 2, insulin dependent (CMS-HCC) Other orders - Cancel: Lift Chair Type 2 DM -Managed by endocrine in [place], Dr. Majano. She believes her A1c is [...] Werner 04/04/25 1537 [facility] History of Present illness Narrative Patient [...] resources for IV AB infusion. Chart reviewed. Miter Saw Operator met with pleasant pt & her daughter Ileana, introduced self & role. Ileana informs [employer] is not able to provide transportation on Wednesday. Ileana is unexpectedly without a vehicle, her son does not drive, pt said she's unsure if her brother would assist as she's not spoken with him for a while. They have a friend who assisted with transportation today however her time is limited; neighbors are not an option. Miter Saw Operator notes pt has [employer], informed pt & daughter that some plans offer medical appointment transportation. Ileana informs pt had used this a long time ago; show card writer offered Access to Care phone number for [employer] transportation services, Ileana informs she has number in phone. Encouraged Ileana to call [facility] to try to get on schedule. Pt does not endorse food insecurity, is receiving small amount of SNAP. Pt does not have Medicaid, pt & daughter relay pt had Medicaid but was cut in november due possibly something about utility bills. Miter Saw Operator encouraged pt/Ileana to re-apply for Medicaid. Pt has medical bills; educated on [employer] & provided [facility] [employer] name/contact information to reach out for assistance. Educated on [employer], how to go about to request in home assessment; PASSPORT information sheet provided. Provided [employer] No Wrong Door info sheet for area resources; pt declined [employer]. Senior Directory stating she has booklet. Ileana contacting [employer] transport services at this time to arrange transportation. Provided writers contact information, show card writer available if needed. Message to Ambulatory RN CN at PCP office requesting follow up with patient. documented in this encounter [facility] 03-20-2025 History of Present illness Narrative Patient [...] detection for pulmonary nodules was performed utilizing [employer] software. FINDINGS: Lack of intravenous contrast limits [...] by Lacho Soliman on 02/20/2025 8:21 AM [facility] 02-18-2025 Miscellaneous Notes Contract: [id number] [facility] [phone] critical lab Secure chat Rosario documented in this encounter [facility] 02-18-2025 Telephone encounter Note Contract: [id number] [facility] [phone] re critical lab Secure chat Rosario [facility] 01-25-2025 History of Present illness Narrative Images from the original note were not included. [facility] 01/25/25 Cuca Dee is a 79 y.o. year old female seen today in the oncology clinic. Chief Complaint Patient presents with Follow-up History of Present Illness: Mrs. Dee is a 79 y.o. female with history of aortic valve stenosis, she had PCI earlier in the year at [facility] [place] for coronary disease. during the cardiac workup [...] mammary carcinoma, grade 2, ER strongly positive ID moderately positive and HER2 negative. There was [...] use Cataract Dental disease Depression Diabetes mellitus [place] Diabetes mellitus type 2, controlled [place] Encephalitis Foot fracture, left GERD (gastroesophageal reflux disease) Heart murmur HLD (hyperlipidemia) Hypertension Incontinence Injury of back Insulin dependent diabetes mellitus Kidney failure STAGE 4 Lumbar spondylolysis Murmur Obesity CHELSEA (obstructive sleep apnea) no machine Peptic ulceration Peripheral vascular disease ([facility] Shortness of breath Stroke ([facility]) 02/27/2024 TIA (transient ischemic attack) Upper respiratory infection UTI (urinary tract infection) Visual impairment Wears dentures Past Surgical History: Procedure Laterality Date BREAST BIOPSY Right 03/01/2023 ULT BIOPSY CATARACT EXTRACTION SECTION SECTION 03/14/1974 EGD N/A 10/17/2019 Performed by Sarai Bell DO at [facility] H-PERCUTANEOUS CORONARY INTERVENTION HYSTEROSCOPY DILATION CURETTAGE MYOSURE N/A 01/29/2021 Performed by Jv Briones MD at [facility] INJECTION BLOCK EPIDURAL CAUDAL STEROID N/A 08/14/2022 Performed by Arnulfo Gonzalez MD at [facility] INJECTION BLOCK EPIDURAL CAUDAL STEROID N/A 06/06/2021 Performed by Arnulfo Gonzalez MD at [facility] INJECTION BLOCK EPIDURAL CAUDAL STEROID N/A 04/25/2021 Performed by Arnulfo Gonzalez MD at [facility] INJECTION CAUDAL EPIDURAL WITH CATHETER, STEROID N/A 05/03/2020 Performed by Arnulfo Gonzalez MD at [facility] INJECTION CAUDAL EPIDURAL WITH CATHETER, STEROID N/A 11/24/2019 Performed by Arnulfo Gonzalez MD at [facility] INJECTION CAUDAL EPIDURAL WITH CATHETER, STEROID N/A 04/21/2019 Performed by Arnulfo Gonzalez MD at [facility] MEDIAL BRANCH NERVE BLOCK Bilateral L 4/5, 5/1 Bilateral 08/18/2019 Performed by Arnulfo Gonzalez MD at [facility] INJECTION MEDIAL BRANCH NERVE BLOCK Bilateral L 4/5, 5/1 Bilateral 06/23/2019 Performed by Arnulfo Gonzalez MD at [facility] INJECTION STEROID EPI 1 WITH SEDATION Right L 4, 5 NR Right 03/17/2019 Performed by Arnulfo Gonzalez MD at [facility] INJECTION STEROID EPI 1 WITH SEDATION: right L45 nroot Right 08/15/2018 Performed by Arnulfo Gonzalez MD at [facility] LEFT L4, AND 5 NERVE ROOT INJECTION 2 OF 2 Left 07/22/2018 Performed by Arnulfo Gonzalez MD at [facility] LEFT L4, AND L5 NERVE ROOT 1 OF 2 Left 07/04/2018 Performed by Arnulfo Gonzalez MD at [facility] SHUNT INSERTION TONSILLECTOMY AGE 4 Transcutaneous aortic valve replacement/Transfemoral/Kwan N/A 08/17/2023 Performed by Chava Norris MD at [facility] Valvuloplasty aortic N/A 06/03/2023 Performed by Chava Norris MD at [facility] Family History [...] 0 min Stress: Stress Concern Present (10/28/2024) [employer] - Occupational Stress Questionnaire Feeling of Stress : To some extent Social Connections: Moderately Integrated (10/28/2024) Social Connection and Isolation Panel [NHANES] Frequency of Communication with Friends and Family: Never Frequency of Social Gatherings with Friends and Family: More than three times a week Attends [employer] Services: More than 4 times per year [...] hyperlipidemia associated with type 2 diabetes mellitus ([facility]) Dose: 40 mg Signed by: KAIDEN Santana 40 mg, oral, Nightly Commonly known as: LIPITOR blood-glucose meter misc Quantity: 1 each Refills: 0 Doctor's comments: Whatever covered by insurance For diagnoses: Controlled type 2 diabetes mellitus with diabetic nephropathy, without long-term current use of insulin [place] Signed by: KAIDEN Santana Monitor blood sugars four times daily and as needed DEXCOM G7 CONTRACT POST OFFICE CLERK misc Refills: 0 Generic drug: blood-glucose meter,continuous DEXCOM G7 SENSOR device Refills: 0 Generic drug: blood-glucose sensor furosemide 20 mg tablet Refills: 0 Dose: 20 mg Commonly known as: LASIX gabapentin 300 mg capsule Quantity: 180 capsule Refills: 1 Doctor's comments: 90 Day Supply with one refill For diagnoses: 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 mellitus ([facility] Dose: 300 mg Signed by: KAIDEN Santana [...] nephropathy, without long-term current use of insulin ([facility] Signed by: KAIDEN Santana Monitor blood sugars [...] Refills: 11 Dose: 12.5 mg Signed by: KAIDNE Billingsley 12.5 mg, oral, 2 times daily [...] to ensure the accuracy of this automated clinical liaison, some errors in clinical liaison may have occurred. CC: Patient Care Team: KAIDEN Werner as PCP - General (Family Medicine) John Quiles MD (Nephrology) KAIDEN Hsu as Nurse Practitioner (Pulmonary Medicine) Madison Ye MD as Referring Physician (Endocrinology, Diabetes & Metabolism) Casimiro Muñoz MD as Consulting Physician (Hematology) PCP:Pam Stinson Referring MD: Pam Stinson AP* [facility] Instructions Casimiro Muñoz MD - 01/25/2025 2:15 PM EDT PET scan now. Bilateral screening mammogram. F/u in 3 months, CBC, CMP, CA 15-3, CA 27.29. [facility] History of Present illness Narrative Images from the original note were not included. [address] [facility] [id number] SUBJECTIVE: Patient ID: Cuca Dee is a 79 y.o. female. Chief Complaint [...] 10/17/2019 Performed by Sarai Bell DO at [facility] H-PERCUTANEOUS CORONARY INTERVENTION HYSTEROSCOPY DILATION CURETTAGE MYOSURE N/A 01/29/2021 Performed by Jv Briones MD at [facility] INJECTION BLOCK EPIDURAL CAUDAL STEROID N/A 08/14/2022 Performed by Arnulfo Gonzalez MD at [facility] INJECTION BLOCK EPIDURAL CAUDAL STEROID N/A 06/06/2021 Performed by Arnulfo Gonzalez MD at [facility] INJECTION BLOCK EPIDURAL CAUDAL STEROID N/A 04/25/2021 Performed by Arnulfo Gonzalez MD at [facility] INJECTION CAUDAL EPIDURAL WITH CATHETER, STEROID N/A 05/03/2020 Performed by Arnulfo Gonzalez MD at [facility] INJECTION CAUDAL EPIDURAL WITH CATHETER, STEROID N/A 11/24/2019 Performed by Arnulfo Gonzalez MD at [facility] INJECTION CAUDAL EPIDURAL WITH CATHETER, STEROID N/A 04/21/2019 Performed by Arnulfo Gonzalez MD at [facility] INJECTION MEDIAL BRANCH NERVE BLOCK Bilateral L 4/5, 5/1 Bilateral 08/18/2019 Performed by Arnulfo Gonzalez MD at [facility] INJECTION MEDIAL BRANCH NERVE BLOCK Bilateral L 4/5, 5/1 Bilateral 06/23/2019 Performed by Arnulfo Gonzalez MD at [facility] INJECTION STEROID EPI 1 WITH SEDATION Right L 4, 5 NR Right 03/17/2019 Performed by Arnulfo Gonzalez MD at [facility] INJECTION STEROID EPI 1 WITH SEDATION: right L45 nroot Right 08/15/2018 Performed by Arnulfo Gonzalez MD at [facility] LEFT L4, AND 5 NERVE ROOT INJECTION 2 OF 2 Left 07/22/2018 Performed by Arnulfo Gonzalez MD at [facility] LEFT L4, AND L5 NERVE ROOT 1 OF 2 Left 07/04/2018 Performed by Arnulfo Gonzalez MD at [facility] SHUNT INSERTION TONSILLECTOMY AGE 4 Transcutaneous aortic valve replacement/Transfemoral/Kwan N/A 08/17/2023 Performed by Chava Norris MD at [facility] Valvuloplasty aortic N/A 06/03/2023 Performed by Chava Norris MD at [facility] Past Medical History: Diagnosis Date Anemia Arthritis Asthma very mild, no inhaler use Cataract Dental disease Depression Diabetes mellitus [place] Diabetes mellitus type 2, controlled [place] Encephalitis Foot fracture, left GERD (gastroesophageal reflux disease) Heart murmur HLD (hyperlipidemia) Hypertension Incontinence Injury of back Insulin dependent diabetes mellitus Kidney failure STAGE 4 Lumbar spondylolysis Murmur Obesity CHELSEA (obstructive sleep apnea) no machine Peptic ulceration Peripheral vascular disease ([facility] Shortness of breath Stroke ([facility] 02/27/2024 TIA (transient ischemic attack) Upper respiratory [...] Moderate episode of recurrent major depressive disorder ([facility]) Stage 3b chronic kidney disease ([facility]) CKD stage 3b Stable Is monitored by [...] scheduled Sooner if needed KAIDEN Werner 01/22/25 [id number] documented in this encounter [facility] [employer] 01-18-2025 Evaluation note Type assessment Proliferative diabet [...] eye: H35.372. Left [facility] Work Phone: [phone]) 541-877903-06-2025 History of Present illness Narrative* Encounter Date Complaint History Of Prese nt Illness AMD The 79 year old female presents for evaluation of AMD in the right and left eyes. Patient states vision stables. Patient Denies any new flashes, floaters, or discomfort. Patient does not use drops at home. [facility] Work Phone: [phone]) 746-478503-06-2025 Instructions* Date Instruction Additional Infor tabby Impression/Plan [...] Edema Diabetes, Type 2, wi thout Retinopathy - [...] to Cataract, Nuclear Diabetes, Type 2, [facility] Retinopathy - Patient understands the importance of [...] to Cataract, Nuclear Diabetes, Type 2, [facility] Retinopathy Condition: established. - Emphasized blood sugar [...] to Macular Edema [facility] Work Phone: [phone]) 771-338101-14-2025 History of Present illness Narrative* Pam Stinson APRN-BARTOLO - 11/28/2024 2:40 PM EST Images from the original note were not included. [address] [facility] [id number] SUBJECTIVE: Patient ID: Cuca Dee is a 79 y.o. female. Chief Complaint Patient presents with tcm Riley Domingo Villatoro Presented to the ER on November 09, 2024 with complaints of generalized fatigue and weakness for several days. Troponin was noted to be elevated.Cardiology consulted. Echocardiogram results showed normal LV and RV systolic function. She did not report chest pain. Was on psychiatric secretary for durationof observation. Followed up outpatient with cardiology on 11/24/24. No new changes. She was noted to have UTI. Was treated with Rocephin and discharged with cephalexin. She has been seen multiple times over the past two months for recurrent UTIs at [place] and [facility] ER. Adult Protective Services was notified at one point for concern patient may be sitting in soiled brief for se days. Patient and daughter state this has not been occurring. Last seen in ER was on 11/19/[address] [facility]. Patient thought she had another UTI. [...] were unaware not changing adapter weekly per maintenance technician recommendation may be contributing to reoccurring UTI's. Is Type 2 DM, has upcoming appointment with Dr. Majano, waiver analyst next week. The following portions of the patient's history were reviewed and updated as appropriate: allergies, current medications, past family history, past medical history, past social history, past surgicalhistory and problem list. Past Surgical History: Procedure Laterality Date BREAST BIOPSY Right 03/01/2023 ULT BIOPSY CATARACT EXTRACTION SECTION SECTION 03/14/1974 EGD N/A 10/17/2019 Performed by Sarai Bell DO at [facility] H-PERCUTANEOUS CORONARY INTERVENTION HYSTEROSCOPY DILATION CURETTAGE MYOSURE N/A 01/29/2021 Performed by Jv Briones MD at [facility] INJECTION BLOCK EPIDURAL CAUDAL STEROID N/A 08/14/2022 Performed by Arnulfo Gonzalez MD at [facility] INJECTION BLOCK EPIDURAL CAUDAL STEROID N/A 06/06/2021 Performed by Arnulfo Gonzalez MD at [facility] INJECTION BLOCK EPIDURAL CAUDAL STEROID N/A 04/25/2021 Performed by Arnulfo Gonzalez MD at [facility] INJECTION CAUDAL EPIDURAL WITH CATHETER, STEROID N/A 05/03/2020 Performed by Arnulfo Gonzalez MD at [facility] INJECTION CAUDAL EPIDURAL WITH CATHETER, STEROID N/A 11/24/2019 Performed by Arnulfo Gonzalez MD at [facility] INJECTION CAUDAL EPIDURAL WITH CATHETER, STEROID N/A 04/21/2019 Performed by Arnulfo Gonzalez MD at [facility] INJECTION MEDIAL BRANCH NERVE BLOCK Bilateral L 4/5, 5/1 Bilateral 08/18/2019 Performed by Arnulfo Gonzalez MD at [facility] INJECTION MEDIAL BRANCH NERVE BLOCK Bilateral L 4/5, 5/1 Bilateral 06/23/2019 Performed by Arnulfo Gonzalez MD at [facility] INJECTION STEROID EPI 1 WITH SEDATION Right L 4, 5 NR Right 03/17/2019 Performed by Arnulfo Goznalez MD at [facility] INJECTION STEROID EPI 1 WITH SEDATION: right L45 nroot Right 08/15/2018 Performed by Arnulfo Gonzalez MD at [facility] LEFT L4, AND 5 NERVE ROOT INJECTION 2 OF 2 Left 07/22/2018 Performed by Arnulfo Gonzalez MD at [facility] LEFT L4, AND L5 NERVE ROOT 1 OF 2 Left 07/04/2018 Performed by Arnulfo Gonzalez MD at [facility] SHUNT INSERTION TONSILLECTOMY AGE 4 Transcutaneous aortic valve replacement/Transfemoral/Kwan N/A 08/17/2023 Performed by Chava Norris MD at [facility] Valvuloplasty aortic N/A 06/03/2023 Performed by Chava Norris MD at [facility] Past Medical History: Diagnosis Date Anemia Arthritis Asthma very mild, no inhaler use Cataract Dental disease Depression Diabetes mellitus [place] Diabetes mellitus type 2, controlled ([facility]) Encephalitis Foot fracture, left GERD (gastroesophageal reflux disease) Heart murmur HLD (hyperlipidemia) Hypertension Incontinence Injury of back Insulin dependent diabetes mellitus Kidney failure STAGE 4 Lumbar spondylolysis Murmur Obesity CHELSEA (obstructive sleep apnea) no machine Peptic ulceration Peripheral vascular disease ([facility]) Shortness of breath Stroke ([facility]) 02/27/2024 TIA (transient ischemic attack) Upper respiratory [...] hyperlipidemia associated with type 2 diabetes mellitus ([facility]) - atorvastatin (LIPITOR) 40 mg tablet; Take 1 tablet (40 mg total) by mouth nightly. Insomnia, unspecified type - traZODone (DESYREL) 100 mg tablet; TAKE 1 TABLET BY MOUTH EVERY DAY AT NIGHT Elevated troponin level Recurrent UTI Spoke with both patient and daughter at length today regarding frequent ER visits. Multiple trips to both [place] and [facility] ER. Primary complaints is generally for UTIs. [...] KAIDEN Werner 12/05/24 1315 [facility] History of Present illness Narrative* Radha Moran MD - 11/24/2024 2:15 PM EST Cuca Dee Date of visit: 11/24/2024 Date of : 1945 Age: 79 y.o. Patient Active Problem List Diagnosis GERD without esophagitis 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 mellitus ([facility] PVD (peripheral vascular disease) ([facility] Anemia, chronic disease Lumbar back pain with radiculopathy affecting left lower extremity Disc displacement, lumbar Primary osteoarthritis of both knees Lumbar spondylosis Moderate episode of recurrent major depressive disorder ([facility]) GI bleed Mixed diabetic hyperlipidemia associated with type 2 diabetes mellitus ([facility]) Murmur, cardiac Left bundle branch block Obstructive sleep apnea syndrome Cerebral ventriculomegaly Edema of lower extremity Wears dentures Normal pressure hydrocephalus ([facility]) Coronary artery disease involving red cliff coronary artery of red cliff heart without angina pectoris Other abnormalities of gait and mobility Essential (primary) hypertension Acute cystitis without hematuria Spinal stenosis of lumbar region with neurogenic claudication SOB (shortness of breath) History of non-ST elevation myocardial infarction (NSTEMI) History of pneumonia Elevated d-dimer Stage 3b chronic kidney disease ([facility]) 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 breast in female, estrogen receptor positive ([facility] Tremors of nervous system Closed nondisplaced fracture of left pubis with routine healing Acute kidney injury superimposed on CKD ([facility]) Nonrheumatic aortic valve stenosis S/p TAVR (transcatheter aortic valve replacement), 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 ([facility]) Sepsis without acute organ dysfunction ([facility]) Depression, unspecified Difficulty in walking, not elsewhere classified Generalized muscle weakness Hypertensive heart and chronic kidney disease with heart failure and stage 1 through stage 4 chronic kidney disease, or unspecified chronic kidney disease ([facility] Insomnia, unspecified Limitation of activities due to disability Methicillin resistant Staphylococcus aureus infection as the cause of diseases classified elsewhere Constipation, unspecified Need for assistance with personal care Obesity, unspecified Pneumonia, unspecified organism Primary generalized (osteo)arthritis Unspecified osteoarthritis, unspecified site Type 2 diabetes mellitus with diabetic chronic kidney disease ([facility]) Unspecified asthma, uncomplicated Unspecified Escherichia coli (E. coli) as the cause of diseases classified elsewhere Urinary tract infectious disease Reactive airway disease with acute exacerbation Weakness Lactic acidosis Iron deficiency anemia secondary to inadequate dietary iron intake Hypomagnesemia Acute respiratory failure with hypoxia and hypercapnia ([facility] COVID-19 virus infection Altered mental status, unspecified altered mental status type Type 2 diabetes mellitus with hypoglycemia without coma ([facility] Acute cystitis Elevated troponin No Known Allergies [...] as needed 1 each 0 DEXCOM G7 CONTRACT POST OFFICE CLERK misc USE DIRECTED TO CONTINUOUSLY MONITOR BLOOD [...] and 6 Units in the evening. lancets (onetouch ultrasoft) misc Monitor blood sugars four times [...] visit. Chief Complaint Patient presents with Follow-up [facility] FU PMH ELEVATED TROPONIN History of Present [...] use Cataract Dental disease Depression Diabetes mellitus ([facility]) Diabetes mellitus type 2, controlled ([facility]) Encephalitis Foot fracture, left GERD (gastroesophageal reflux disease) Heart murmur HLD (hyperlipidemia) Hypertension Incontinence Injury of back Insulin dependent diabetes mellitus Kidney failure STAGE 4 Lumbar spondylolysis Murmur Obesity CHELSEA (obstructive sleep apnea) no machine Peptic ulceration Peripheral vascular disease [place] Shortness of breath Stroke [place] 02/27/2024 TIA (transient ischemic attack) Upper respiratory infection UTI (urinary tract infection) Visual impairment Wears dentures No data recorded No data recorded No data recorded Past Surgical History: Procedure Laterality Date BREAST BIOPSY Right 03/01/2023 ULT BIOPSY CATARACT EXTRACTION SECTION SECTION 03/14/1974 EGD N/A 10/17/2019 Performed by Sarai Bell DO at [facility] H-PERCUTANEOUS CORONARY INTERVENTION HYSTEROSCOPY DILATION CURETTAGE MYOSURE N/A 01/29/2021 Performed by Jv Briones MD at [facility] INJECTION BLOCK EPIDURAL CAUDAL STEROID N/A 08/14/2022 Performed by Arnulfo Gonzalez MD at [facility] INJECTION BLOCK EPIDURAL CAUDAL STEROID N/A 06/06/2021 Performed by Arnulfo Gonzalez MD at [facility] INJECTION BLOCK EPIDURAL CAUDAL STEROID N/A 04/25/2021 Performed by Arnulfo Gonzalez MD at [facility] INJECTION CAUDAL EPIDURAL WITH CATHETER, STEROID N/A 05/03/2020 Performed by Arnulfo Gonzalez MD at [facility] INJECTION CAUDAL EPIDURAL WITH CATHETER, STEROID N/A 11/24/2019 Performed by Arnulfo Gonzalez MD at [facility] INJECTION CAUDAL EPIDURAL WITH CATHETER, STEROID N/A 04/21/2019 Performed by Arnulfo Gonzalez MD at [facility] INJECTION MEDIAL BRANCH NERVE BLOCK Bilateral L 4/5, 5/ Bilateral 08/18/2019 Performed by Arnulfo Gonzalez MD at [facility] MEDIAL BRANCH NERVE BLOCK Bilateral L 4/5, 5/ Bilateral 06/23/2019 Performed by Arnulfo Gonzalez MD at [facility] INJECTION STEROID EPI 1 WITH SEDATION Right L 4, 5 NR Right 03/17/2019 Performed by Arnulfo Gonzalez MD at [facility] INJECTION STEROID EPI 1 WITH SEDATION: right L45 nroot Right 08/15/2018 Performed by Arnulfo Gonzalez MD at [facility] LEFT L4, AND 5 NERVE ROOT INJECTION 2 OF 2 Left 07/22/2018 Performed by Arnulfo Gonzalez MD at [facility] LEFT L4, AND L5 NERVE ROOT 1 OF 2 Left 07/04/2018 Performed by Arnulfo Gonzalez MD at [facility] SHUNT INSERTION TONSILLECTOMY AGE 4 Transcutaneous aortic valve replacement/Transfemoral/Kwan N/A 08/17/2023 Performed by Chava Norris MD at [facility] CARDIAC CATH LABS Valvuloplasty aortic N/A 06/03/2023 Performed by Chava Norris MD at [facility] CARDIAC CATH LABS Family History [...] 0 min Stress: Stress Concern Present (10/28/2024) [employer] - Occupational Stress Questionnaire Feeling of Stress : To some extent Social Connections: Moderately Integrated (10/28/2024) Social Connection and Isolation Panel [NHANES] Frequency of Communication with Friends and Family: Never Frequency of Social Gatherings with Friends and Family: More than three times a week Attends [employer] Services: More than 4 times per year [...] replacement), bioprosthetic 3. Coronary artery disease involving red cliff coronary artery of red cliff heart without angina pectoris Recent admit for [...] Werner Referring Physician: KAIDEN Werner [address] [place] [id number] documented in this encounterMer[facility]01-09-2025 Miscellaneous Notes* Telephone Encounter - Jazzmine Vega CMA - 11/23/2024 1:58 PM EST Called patient to remind them to bring their most current copy of their medication list with them to their appt. Patient verbalizes understanding. documented in this encounterMercy Memorial Hospital01-09-2025 Telephone encounter Note* Telephone Encounter - Jazzmine Vega CMA - 11/23/2024 1:58 PM EST Called patient to remind them to bring their most current copy of their medication list with them to their appt. Patient verbalizes understanding. [facility]12-30-[facility] Miscellaneous Notes* Telephone Encounter - Yani Martinez - 11/13/2024 5:24 PM EST ----- Message ----- From: Irina Brunner MD Sent: 11/10/2024 7:37 AM EST To: Ppc General Customer Service Assistant Subject: Post discharge follow-up Patient is seen at [facility]. Starting off. Need follow-up as outpatient within 3 weeks fromdischarge. Thank you * Telephone Encounter - Yani Martinez - 11/13/2024 5:24 PM EST SCHEDULED 11/24/2024 documented in this encounterMercy Memorial Hospital12-30-2024 Telephone encounter Note* Telephone Encounter - Yani Martinez - 11/13/2024 5:24 PM EST ----- Message ----- From: Irina Brunner MD Sent: 11/10/2024 7:37 AM EST To: Ppc General Customer Service Assistant Subject: Post discharge follow-up Patient is seen at [facility]. Starting off. Need follow-up as outpatient within 3 weeks fromdischarge. Thank you [facility] [id number] Telephone encounter Note* Telephone Encounter - Yani Martinez - 11/13/2024 5:24 PM EST SCHEDULED 11/24/2024 [facility] [id number] Miscellaneous Notes* Telephone Encounter - Maddie Givens RN - 11/10/2024 8:54 AM EST Aubrey Medina called [facility], to ask if patient discharged with home care, will PCP cover? documented in this encounterMercy Memorial Hospital12-27-2024 Telephone encounter Note* Telephone Encounter - Maddie Givens RN - 11/10/2024 8:54 AM EST Aubrey Caring called [facility], to ask if patient discharged with home care, will PCP cover? [facility] Work Phone: [phone] Miscellaneous Notes* Telephone Encounter - Alice Morrison CMA - 09/06/2024 3:15 PM EDT [facility] called to see if you could [...] Morrison CMA - 09/06/2024 3:15 PM EDT [facility] called to see if you could send in nystatin ( 60g bottle) for this pt , pt has excoriated abdomen folds ,flacky red fungal odor , she did educate pt , also stated the right side is worse than the left side [facility]10-[facility]24 Telephone encounter Note* Telephone Encounter - KAIDEN Werner - 09/06/2024 3:15 PM EDT done [facility]10[facility] History of Present illness Narrative* KAIDEN Werner [...] Discharge Specialty: Endocrine Name of Discharging Facility: [facility] Date of Facility Discharge: Admitted: 08/23/24 Discharged: 08/24/24 Date of Interactive Contact and Name of Shoe Repair Cobbler: 08/25/24 Spoke with patient's daughterIleana Medication Review Completed: Yes CHANGE how you take: insulin detemir U-100 (LEVEMIR) Medication Reconciliation Questions/Concerns: *Follow Up Appointments with Providers: Primary: Pam Stinson, LOCK AND DAM EQUIPMENT REPAIRER-CORPORATE STRATEGIST: 08/28/24 Specialty: Endocrinology (Christiano): TBVicki Review of [...] at this time Subjective Patient ID: Cuca Dee is a 79 y.o. female. The patient is here today for discharge follow up from hospital. Transition of Care Med Rec completed? Yes Discharged medications: Medications have been reviewed and reconciled with the most recent facilitydischarge document. Discharged from [facility] on 08[facility]24[facility]24 Patient is accompanied by her daughter today. States daughter administered her insulin. Patient forgot she already received and she administered insulin as well. Subsequently, blood sugar dropped and developed altered mental status. Daughter states blood sugar did not register as it was very low. [facility]. Type 2 [...] KAIDEN Werner 08/28/24 0902 documented in this encounterMercy Memorial Hospital10-02-2024 Miscellaneous Notes* Telephone Encounter - Deja Mojica CMA - 08/16/2024 4:11 PM EDT Do you still need a TCM on this patient? * Telephone Encounter - KAIDEN Werner - 08/16/2024 4:11 PM EDT She currently has COVID-19. I am going to say not at this time documented in this encounterMercy Memorial Hospital10-02-2024 Telephone encounter Note* Telephone Encounter - Deja Mojica CMA - 08/16/2024 4:11 PM EDT Do you still need a TCM on this patient? [facility]10-[facility] Telephone encounter Note* Telephone Encounter - KAIDEN Werner - 08/16/2024 4:11 PM EDT She currently has COVID-19. I am going to say not at this time [facility]10-02-2024 Miscellaneous Notes* Telephone Encounter - Delisa Torres RN - 08/16/2024 10:13 AM EDT Transition of Care (*required) *Additional Questions/Concerns Requiring PCP Follow-Up: -Patient does not have CELI appointment scheduled This documentation is being used for Transition of Care purposes: Yes Goal: Patient will demonstrate a safe transition from hospital to home Diagnosis on Discharge: DISCHARGE DIAGNOSES Principal Problem: Acute respiratory failure with hypoxia and hypercapnia [place] Active Problems: PVD (peripheral vascular disease) [place] Mixed diabetic hyperlipidemia associated with type 2 diabetes mellitus [place] Obstructive sleep apnea syndrome Essential (primary) hypertension Acute cystitis without hematuria Stage 3b chronic kidney disease [place] Sepsis without acute organ dysfunction [place] Iron deficiency anemia secondary to inadequate dietary iron intake COVID-19 virus infection Discharge Specialty: Other *Name of Discharging Facility: [facility] Date of Facility Discharge: Admission 08/12/24 Discharge 08/14/24 Date of Interactive Contact and Name of Shoe Repair Cobbler: 08/16/24 10:22 am Spoke to patients daughter Ileana *Medication Review Completed: No START taking: amoxicillin-pot clavulanate (AUGMENTIN) predniSONE (DELTASONE) Medication Reconciliation Questions/Concerns: -Reviewed discharge changes to medications -Declines medications review -Patients daughter picked up medications and patient started taking as prescribed -Denies questions or concerns *Follow Up Appointments with Providers: Primary: Pam Stinson APRN-BARTOLO Specialty: Specialty: Specialty: Review of Pending [...] pass on this one. documented in this encounterBarney Children[facility] Medical Centermobileo10-02-2024 Telephone encounter Note* Telephone Encounter - Delisa [...] Acute respiratory failure with hypoxia and hypercapnia ([facility] Active Problems: PVD (peripheral vascular disease) ([facility] Mixed diabetic hyperlipidemia associated with type 2 diabetes mellitus ([facility] Obstructive sleep apnea syndrome Essential (primary) hypertension Acute cystitis without hematuria Stage 3b chronic kidney disease ([facility]) Sepsis without acute organ dysfunction ([facility] Iron deficiency anemia secondary to inadequate dietary iron intake COVID-19 virus infection Discharge Specialty: Other *Name of Discharging Facility: [facility] Date of Facility Discharge: Admission 08/12/24 Discharge 08/14/24 Date of Interactive Contact and Name of Shoe Repair Cobbler: 08/16/24 10:22 am Spoke to patients molina Tejeda *Medication Review Completed: No START taking: amoxicillin-pot clavulanate (AUGMENTIN) predniSONE (DELTASONE) Medication Reconciliation Questions/Concerns: -Reviewed discharge changes to medications -Declines medications review -Patients daughter picked up medications and patient started taking as prescribed -Denies questions or concerns *Follow Up Appointments with Providers: Primary: Pam Stinson APRN-CORPORATE STRATEGIST Specialty: Specialty: Specialty: Review of Pending Lab/Diagnostic [...] Other Services Utilized/Needed by the Patient: NA [facility]10-02-2024 Telephone encounter Note* Telephone Encounter - Deja Mojica CMA - 08/16/2024 10:13 AM EDT Patient currently has COVID so she will pass on this one. [employer] [id number] History of Present illness Narrative* Pam Stinson APRN-CORPORATE STRATEGIST - 06/21/2024 2:40 PM EDT Subjective Patient ID: Cuca Dee is a 79 y.o. female. The patient [...] Discharge Specialty: Pulmonology Name of Discharging Facility: [facility] Date of Facility Discharge: Admitted; 06/13/24 Discharged: 06/15/24 Date of Interactive Contact and Name of Shoe Repair Cobbler: 06/16/24 @ 943 am: no answer, left message to return call 06/16/24 @ 151 pm: no answer Medication Review Completed: Pending provider review START taking: albuterol (PROVENTIL,VENTOLIN) doxycycline (MONODOX) fluticasone propion-salmeteroL (ADVAIR) guaiFENesin (MUCINEX) predniSONE (DELTASONE) STOP taking: hydroCHLOROthiazide 25 mg tablet (HYDRODIURIL) Medication Reconciliation Questions/Concerns: Follow Up Appointments with Providers: Primary: Pam Stinson, L[employer] DAM EQUIPMENT REPAIRER-CORPORATE STRATEGIST: 06/21/24 Review of Pending Lab/Diagnostic Tests and Plan for Completion: Assessment and Support of Treatment Regimen Adherence and Medication Management: Education Provided by ACN to Support Self-Management, Independent Living and ADLs: Communication with Home Health Agencies and Other Services Utilized/Needed by the Patient: [facility] Presents today for transitional care follow up. Is accompanied by her daughter today. Was discharged from [facility] on 2024. Onset of initial symptoms [...] airway disease with acute exacerbation Currently has [facility] home care in the home. Receiving PT for strengthen. Follow up July KAIDEN Werner 06/28/24 1451 documented in this encounterMercy Memorial Hospital06-19-2024 History of Present illness Narrative* KAIDEN Werner - 05/03/2024 2:40 PM EDT Subjective Patient ID: Cuca Dee is a 78 y.o. female. The patient is here today for discharge follow up from post acute facility. Transition of Care Med Rec completed? Yes Discharged medications: Medications have been reviewed and reconciled with the most recent facilitydischarge document. Went to [place] ER on April 06, 2024 after one day of not feeling well. Daughter called EMS. Was noted to have oxygen sats in the 80's. Subsequently was admitted for pneumonia bilateral lower lobes. After discharge, she recovered at [facility]. Was discharged on Sunday, April 28, 2024.She returned to home, resides with daughter and grandson. No medication changes. Today, she feels she is almost at her normal baseline. Does feel slightly weaker than prior to admission. Uses rolling walker for ambulation. She is scheduled for home care with PT / OT tomorrow. [facility]. The following portions of the [...] [facility] Diagnoses and all orders for this visit: [...] from the original note were not included. [facility] 03/09/24 Cuca Dee is a 78 y.o. year old female seen today in the oncology clinic. Chief Complaint Patient presents with Follow-up History of Present Illness: Mrs. Dee is a 78 y.o. female with history of aortic valve stenosis, she had PCI earlier in the year at [facility] for coronary disease. during the cardiac workup [...] mammary carcinoma, grade 2, ER strongly positive ID moderately positive and [id number]. There was also suspicious spine lesion, MRI [...] mellitus (CMS-HCC) Diabetes mellitus type 2, controlled [place] Encephalitis Foot fracture, left GERD (gastroesophageal reflux disease) Heart murmur HLD (hyperlipidemia) Hypertension Incontinence Injury of back Insulin dependent diabetes mellitus Kidney failure STAGE 4 Lumbar spondylolysis Murmur Obesity CHELSEA (obstructive sleep apnea) no machine Peptic ulceration Peripheral vascular disease [place] Shortness of breath Stroke [place] 02/27/2024 TIA (transient ischemic attack) Upper respiratory infection UTI (urinary tract infection) Visual impairment Wears dentures Past Surgical History: Procedure Laterality Date BREAST BIOPSY Right 03/01/2023 ULT BIOPSY CATARACT EXTRACTION SECTION SECTION 03/14/1974 EGD N/A 10/17/2019 Performed by Sarai Bell DO at [facility] HYSTEROSCOPY DILATION CURETTAGE MYOSURE N/A 01/29/2021 Performed by Jv Briones MD at [facility] INJECTION BLOCK EPIDURAL CAUDAL STEROID N/A 08/14/2022 Performed by Arnulfo Gonzalez MD at [facility] INJECTION BLOCK EPIDURAL CAUDAL STEROID N/A 06/06/2021 Performed by Arnulfo Gonzalez MD at [facility] INJECTION BLOCK EPIDURAL CAUDAL STEROID N/A 04/25/2021 Performed by Arnulfo Gonzalez MD at [facility] INJECTION CAUDAL EPIDURAL WITH CATHETER, STEROID N/A 05/03/2020 Performed by Arnulfo Gonzalez MD at [facility] INJECTION CAUDAL EPIDURAL WITH CATHETER, STEROID N/A 11/24/2019 Performed by Arnulfo Gonzalez MD at [facility] INJECTION CAUDAL EPIDURAL WITH CATHETER, STEROID N/A 04/21/2019 Performed by Arnulfo Gonzalez MD at [facility] INJECTION MEDIAL BRANCH NERVE BLOCK Bilateral L 4/5, 5/1 Bilateral 08/18/2019 Performed by Arnulfo Gonzalez MD at [facility] INJECTION MEDIAL BRANCH NERVE BLOCK Bilateral L 4/5, 5/1 Bilateral 06/23/2019 Performed by Arnulfo Gonzalez MD at [facility] INJECTION STEROID EPI 1 WITH SEDATION Right L 4, 5 NR Right 03/17/2019 Performed by Arnulfo Gonzalez MD at [facility] INJECTION STEROID EPI 1 WITH SEDATION: right L45 nroot Right 08/15/2018 Performed by Arnulfo Gonzalez MD at [facility] LEFT L4, AND 5 NERVE ROOT INJECTION 2 OF 2 Left 07/22/2018 Performed by Arnulof Gonzalez MD at [facility] LEFT L4, AND L5 NERVE ROOT 1 OF 2 Left 07/04/2018 Performed by Arnulfo Gonzalez MD at [facility] PERCUTANEOUS CORONARY INTERVENTION SHUNT INSERTION TONSILLECTOMY AGE 4 Transcutaneous aortic valve replacement/Transfemoral/Kwan N/A 08/17/2023 Performed by Chava Norris MD at [facility] CARDIAC CATH LABS Valvuloplasty aortic N/A 06/03/2023 Performed by Chava Norris MD at [facility] CARD[facility]AC CATH LABS Family History [...] min Stress: No Stress Concern Present (10/05/2022) [employer] - Occupational Stress Questionnaire Feeling of Stress : Not at all Social Connections: Moderately Isolated (10/05/2022) Social Connection and Isolation Panel [NHANES] Frequency of Communication with Friends and Family: Never Frequency of Social Gatherings with Friends and Family: Never Attends [employer] Services: More than 4 times per year Active Member of Clubs or Organizations: Yes Attends Club or Organization Meetings: More than 4 times per year Marital Status: Never Received from [facility] [place] Safety & Environment Housing Instability: Low [...] nephropathy, without long-term current use of insulin [place] Signed by: KAIDEN Santana Monitor blood sugars four times daily and as needed clopidogreL 75 mg tablet Refills: 0 Dose: 75 mg Commonly known as: PLAVIX gabapentin 300 mg capsule Quantity: 180 capsule Refills: 1 Doctor's comments: 90 Day Supply with one refill For diagnoses: 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 mellitus [place] Dose: 300 mg Signed by: KAIDEN Santana 300 mg, oral, 2 times daily Commonly known as: NEURONTIN hydroCHLOROthiazide 25 mg tablet Refills: 0 Dose: 25 mg Commonly known as: HYDRODIURIL * lancets misc Quantity: 200 each Refills: 0 Doctor's comments: Whatever covered by insurance For diagnoses: Controlled type 2 diabetes mellitus with diabetic nephropathy, without long-term current use of insulin [place] Signed by: KAIDEN Santana Monitor blood sugars four times daily and as needed Commonly known as: onetouch ultrasoft * ONETOUCH DELICA PLUS LANCET 33 gauge misc Refills: 0 Generic drug: lancets letrozole 2.5 mg chemo tablet Quantity: 90 tablet Refills: 3 For diagnoses: 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 female breast, unspecified estrogen receptor status [place] Signed by: Dr. Casimiro Muñoz MD TAKE [...] disorder in partial remission, unspecified whether recurrent ([facility]) Dose: 100 mg Signed by: KAIDEN Santana [...] to ensure the accuracy of this automated clinical liaison, some errors in clinical liaison may have occurred. CC: Patient Care Team: Pam Stinson APRN-CORPORATE STRATEGIST as PCP - General (Family Medicine) John Quiles MD (Nephrology) KAIDEN Hsu as Nurse Practitioner (Pulmonary Medicine) Madison Ye MD as Referring Physician (Endocrinology, Diabetes & Metabolism) Casimiro Muñoz MD as Consulting Physician (Hematology) PCP:Pam Stinson Referring MD: Pam Stinson AP* documented in this encounterMercy Memorial Hospital04-25-2024 Instructions* Patient Instructions* Casimiro Muñoz MD - 03/09/2024 3:15 PM EDT B/l mammogram is due. F/u in 6 months, CBC, CMP. documented in this encounterMercy Memorial Hospital04-15-2024 Miscellaneous Notes* Telephone Encounter - Maria Del Carmen Holland RN - 02/28/2024 3:24 PM EDT ----- Message from RONNA Melissa sent at 02/28/2024 3:07 PM EDT ----- Regarding: FW: Geetha Turnerge! I just got called again from [place]. They were contacted by [facility] and patient does NOT have an order for MRI Brain. She only has the order for CT brain. So I placed a STAT MRI Brain w and wo order for patient to get imaging done at [facility] in next 1-2 weeks. I'm not sure the best way to get this order recognized by [facility] system. Do we need to fax it? Can they see the order in [facility] system? Just let mw know if I need to do something different. TIA!!! ----- Message ----- From: RONNA Melissa Sent: 02/28/2024 1:29 PM EDT To: [facility] Stroke Scheduling; [facility] Stroke Customer Service Assistant Subject: [place] BAR We suspect a small brainstem stroke on this lady but unfortunately she cannot complete her MRI at [place]. Cuca has a WELD ENGINEER shunt that was placed at [facility] in 2019 and is scheduled for a FU appt at [facility] on 03/19/24. Dr. Martell advised the followin. Check P2Y12- I already placed an order in [facility]. This can be done when she goes to [facility]. 2. Expedite MRI Brain. This was scheduled to be done at [facility] on 03/19. Dr. Martell would like it done in the next 1-2 weeks. We can revise the established order if needed. Cuca will need FU in Stroke clinic in 4-6 weeks. (Likely after her 03/19/25 appt). She can see Jayshree Oliver or fellow. Note some of her records are in [facility]. We will need to decide about doubling dose of Plavix vs transition to brilinta pending MRI and P2Y12 testing. Thanks! * Telephone Encounter - Maria Del Carmen Holland RN - 02/28/2024 3:24 PM EDT Faxed MRI brain order to [facility]. Will check tomorrow that they received it. Also faxed order for P2Y12 to [place] lab * Telephone Encounter - Kristy Contreras - 02/28/2024 3:24 PM EDT Received call today 02/29/24 9:10 from [facility] Radiology who stated that patient's MR Brain with and without contrast was denied and will need a prior auth before they can schedule for patient. * Telephone Encounter - Maria Del Carmen Holland RN - 02/28/2024 3:24 PM EDT Sent hospital note to [place] to use for prior authorization. * Telephone Encounter - Maria Del Carmen Holland RN - 02/28/2024 3:24 PM EDT Sched for 03/16 * Telephone Encounter - Maria Del Carmen Holland RN - 02/28/2024 3:24 PM EDT MR moved to 04/19 * Telephone Encounter - Teena Quinonez CMA - 02/28/2024 3:24 PM EDT Called [facility] and caller stated Pt is scheduled for Wednesday 04/25 for MRI. * Telephone Encounter - Teena Quinonez CMA - 02/28/2024 3:24 PM EDT Called [facility] to retrieve imaging. Caller stated it is rescheduled for 05/23/24. Postponed message till the date above. * Telephone Encounter - Alayna Martel RN - 02/28/2024 3:24 PM EDT Call we have imaging pushed to PACs for review, also can we call patient and remind or ask if she had the P2Y12 lab that needs to be drawn? Order was already faxed over to [place] lab. * Telephone Encounter - Teena Quinonez CMA - 02/28/2024 3:24 PM EDT Called [facility] for MRI to be pushed via PACS. Should be available shortly. Called Pt's daughter per pending lab order. Daughter stated they were unaware of this and will get it completed. * Telephone Encounter - Kristy Hernandez - 02/28/2024 3:24 PM EDT Spoke with Ileana and made an appt documented in this encounterBarney Children's Medical CenterRain [id number] Telephone encounter Note* Telephone Encounter - Maria Del Carmen Holland RN - 02/28/2024 3:24 PM EDT ----- Message from RONNA Melissa sent at 02/28/2024 3:07 PM EDT ----- Regarding: FW: Geetha FU Jorge A Joyce! I just got called again from [place]. They were contacted by [facility] and patient does NOT have an order for MRI Brain. She only has the order for CT brain. So I placed a STAT MRI Brain w and wo order for patient to get imaging done at [facility] in next 1-2 weeks. I'm not sure the best way to get this order recognized by [facility] system. Do we need to fax it? Can they see the order in [facility] system? Just let mw know if I need to do something different. TIA!!! ----- Message ----- From: RONNA Melissa Sent: 02/28/2024 1:29 PM EDT To: [facility] Stroke Scheduling; [facility] Stroke Customer Service Assistant Subject: [place] FU We suspect a small brainstem stroke on this lady but unfortunately she cannot complete her MRI at [place]. Cuca has a WELD ENGINEER shunt that was placed at [facility] in 2019 and is scheduled for a FU appt at [facility] on 03/19/24. Dr. Martell advised the followin. Check P2Y12- I already placed an order in [facility]. This can be done when she goes to [facility]. 2. Expedite MRI Brain. This was scheduled to be done at [facility] on 03/19. Dr. Martell would like it done in the next 1-2 weeks. We can revise the established order if needed. Cuca will need FU in Stroke clinic in 4-6 weeks. (Likely after her 03/19/25 appt). She can see Jayshree Oliver or fellow. Note some of her records are in [facility]. We will need to decide about doubling dose of Plavix vs transition to brilinta pending MRI and P2Y12 testing. Thanks! [facility] [id number] Telephone encounter Note* Telephone Encounter - Maria Del Carmen Holland RN - 02/28/2024 3:24 PM EDT Faxed MRI brain order to [facility]. Will check tomorrow that they received it. Also faxed order for P2Y12 to [place] [facility] [id number] Telephone encounter Note* Telephone Encounter - Kristy Contreras - 02/28/2024 3:24 PM EDT Received call today 02/29/24 9:10 from [facility] Radiology who stated that patient's MR Brain with and without contrast was denied and will need a prior auth before they can schedule for patient. [facility]04-15-2024 Telephone encounter Note* Telephone Encounter - Maria Del Carmen Holland RN - 02/28/2024 3:24 PM EDT Sent hospital note to [place] to use for prior authorization. [facility] [id number] Telephone encounter Note* Telephone Encounter - Maria Del Carmen Holland RN - 02/28/2024 3:24 PM EDT Sched for /2 [facility] [id number] Telephone encounter Note* Telephone Encounter - Maria Del Carmen Holland RN - 02/28/2024 3:24 PM EDT MR moved to 6/5 [facility] [id number] Telephone encounter Note* Telephone Encounter - Teena Quinonez CMA - 02/28/2024 3:24 PM EDT Called [facility] and caller stated Pt is scheduled for Wednesday 04/25 for MRI. [facility] [id number] Telephone encounter Note* Telephone Encounter - Teena Quinonez CMA - 02/28/2024 3:24 PM EDT Called [facility] to retrieve imaging. Caller stated it is rescheduled for 05/23/24. Postponed message till the date above. [facility] [id number] Telephone encounter Note* Telephone Encounter - Alayna Martel RN - 02/28/2024 3:24 PM EDT Call we have imaging pushed to PACs for review, also can we call patient and remind or ask if she had the P2Y12 lab that needs to be drawn? Order was already faxed over to [place] lab. [facility] [id number] Telephone encounter Note* Telephone Encounter - Teena Quinonez CMA - 02/28/2024 3:24 PM EDT Called [facility] for MRI to be pushed via PACS. Should be available shortly. Called Pt's daughter per pending lab order. Daughter stated they were unaware of this and will get it completed. [facility] [id number] Telephone encounter Note* Telephone Encounter - Kristy Hernandez - 02/28/2024 3:24 PM EDT Spoke with Ileana and made an appt [facility] [id number] History of Present illness Narrative* Pam De La Rosa Stinson, [employer] EQUIPMENT REPAIRER-CORPORATE STRATEGIST - 02/09/2024 1:00 PM EDT Images from the original note were not included. [place] [id number] SUBJECTIVE: Patient ID: Cuca Dee is a 78 y.o. female. Chief Complaint Patient presents with incontinence Accompanied by daughter today Urine is cloudy, increased incontinence. Concerns for reoccurrence of UTI. [facility]. Uses Purewick [...] 10/17/2019 Performed by Sarai Bell DO at [facility] HYSTEROSCOPY DILATION CURETTAGE MYOSURE N/A 01/29/2021 Performed by Jv Briones MD at [facility] INJECTION BLOCK EPIDURAL CAUDAL STEROID N/A 08/14/2022 Performed by Arnulfo Gonzalez MD at [facility] INJECTION BLOCK EPIDURAL CAUDAL STEROID N/A 06/06/2021 Performed by Arnulfo Gonzalez MD at [facility] INJECTION BLOCK EPIDURAL CAUDAL STEROID N/A 04/25/2021 Performed by Arnulfo Gonzalez MD at [facility] INJECTION CAUDAL EPIDURAL WITH CATHETER, STEROID N/A 05/03/2020 Performed by Arnulfo Gonzalez MD at [facility] INJECTION CAUDAL EPIDURAL WITH CATHETER, STEROID N/A 11/24/2019 Performed by Arnulfo Gonzalez MD at [facility] INJECTION CAUDAL EPIDURAL WITH CATHETER, STEROID N/A 04/21/2019 Performed by Arnulfo Gonzalez MD at [facility] INJECTION MEDIAL BRANCH NERVE BLOCK Bilateral L 4/5, 5/1 Bilateral 08/18/2019 Performed by Arnulfo Gonzalez MD at [facility] INJECTION MEDIAL BRANCH NERVE BLOCK Bilateral L 4/5, 5/1 Bilateral 06/23/2019 Performed by Arnulfo Gonzalez MD at [facility] INJECTION STEROID EPI 1 WITH SEDATION Right L 4, 5 NR Right 03/17/2019 Performed by Arnulfo Gonzalez MD at [facility] INJECTION STEROID EPI 1 WITH SEDATION: right L45 nroot Right 08/15/2018 Performed by Arnulfo Gonzalez MD at [facility] LEFT L4, AND 5 NERVE ROOT INJECTION 2 OF 2 Left 07/22/2018 Performed by Arnulfo Gonzalez MD at [facility] LEFT L4, AND L5 NERVE ROOT 1 OF 2 Left 07/04/2018 Performed by Arnulfo Gonzalez MD at [facility] PERCUTANEOUS CORONARY INTERVENTION SHUNT INSERTION TONSILLECTOMY AGE 4 Transcutaneous aortic valve replacement/Transfemoral/Kwan N/A 08/17/2023 Performed by Chava Norris MD at [facility] CARDIAC CATH LABS Valvuloplasty aortic N/A 06/03/2023 Performed by Chava Norris MD at [facility] CARDIAC CATH LABS Past Medical History: Diagnosis Date Anemia Arthritis Asthma very mild, no inhaler use Cataract Dental disease Depression Diabetes mellitus [place] Diabetes mellitus type 2, controlled ([facility] Encephalitis Foot fracture, left GERD (gastroesophageal reflux disease) Heart murmur HLD (hyperlipidemia) Hypertension Incontinence Injury of back Insulin dependent diabetes mellitus Kidney failure STAGE 4 Lumbar spondylolysis Murmur Obesity CHELSEA (obstructive sleep apnea) no machine Peptic ulceration Peripheral vascular disease ([facility] Shortness of breath TIA (transient ischemic attack) [...] note were not included. [address] [place] [id number] SUBJECTIVE: Patient ID: Cuca Dee is a 78 y.o. female. Chief Complaint [...] 10/17/2019 Performed by Sarai Bell DO at [facility] HYSTEROSCOPY DILATION CURETTAGE MYOSURE N/A 01/29/2021 Performed by Jv Briones MD at [facility] INJECTION BLOCK EPIDURAL CAUDAL STEROID N/A 08/14/2022 Performed by Arnulfo Gonzalez MD at [facility] INJECTION BLOCK EPIDURAL CAUDAL STEROID N/A 06/06/2021 Performed by Arnulfo Gonzalez MD at [facility] INJECTION BLOCK EPIDURAL CAUDAL STEROID N/A 04/25/2021 Performed by Arnulfo Gonzalez MD at [facility] INJECTION CAUDAL EPIDURAL WITH CATHETER, STEROID N/A 05/03/2020 Performed by Arnulfo Gonzalez MD at [facility] INJECTION CAUDAL EPIDURAL WITH CATHETER, STEROID N/A 11/24/2019 Performed by Arnulfo Gonzalez MD at [facility] INJECTION CAUDAL EPIDURAL WITH CATHETER, STEROID N/A 04/21/2019 Performed by Arnulfo Gonzalez MD at [facility] INJECTION MEDIAL BRANCH NERVE BLOCK Bilateral L 4/5, 5/1 Bilateral 08/18/2019 Performed by Arnulfo Gonzalez MD at [facility] INJECTION MEDIAL BRANCH NERVE BLOCK Bilateral L 4/5, 5/1 Bilateral 06/23/2019 Performed by Arnulfo Gonzalez MD at [facility] INJECTION STEROID EPI 1 WITH SEDATION Right L 4, 5 NR Right 03/17/2019 Performed by Arnulfo Gonzalez MD at [facility] INJECTION STEROID EPI 1 WITH SEDATION: right L45 nroot Right 08/15/2018 Performed by Arnulfo Gonzalez MD at [facility] LEFT L4, AND 5 NERVE ROOT INJECTION 2 OF 2 Left 07/22/2018 Performed by Arnulfo Gonzalez MD at [facility] LEFT L4, AND L5 NERVE ROOT 1 OF 2 Left 07/04/2018 Performed by Arnulfo Gonzalez MD at [facility] PERCUTANEOUS CORONARY INTERVENTION SHUNT INSERTION TONSILLECTOMY AGE 4 Transcutaneous aortic valve replacement/Transfemoral/Kwan N/A 08/17/2023 Performed by Chava Norris MD at [facility] CARDIAC CATH LABS Valvuloplasty aortic N/A 06/03/2023 Performed by Chava Norris MD at [facility] CARDIAC CATH LABS Past Medical History: Diagnosis Date Anemia Arthritis Asthma very mild, no inhaler use Cataract Dental disease Depression Diabetes mellitus [place] Diabetes mellitus type 2, controlled ([facility] Encephalitis Foot fracture, left GERD (gastroesophageal reflux disease) Heart murmur HLD (hyperlipidemia) Hypertension Incontinence Injury of back Insulin dependent diabetes mellitus Kidney failure STAGE 4 Lumbar spondylolysis Murmur Obesity CHELSEA (obstructive sleep apnea) no machine Peptic ulceration Peripheral vascular disease ([facility] Shortness of breath TIA (transient ischemic attack) [...] needed (cough and congestion). Normal pressure hydrocephalus ([facility]) Moderate episode of recurrent major depressive disorder ([facility]) PVD (peripheral vascular disease) [place] 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 mellitus ([facility]) - gabapentin (NEURONTIN) 300 mg capsule; Take 1 capsule (300 mg total) by mouth in the morning and 1 capsule (300 mg total) before bedtime. Stage 3b chronic kidney disease ([facility] Major depressive disorder in partial remission, unspecified whether recurrent ([facility] - sertraline (ZOLOFT) 100 mg tablet; Take [...] stage 3b chronic kidney disease and hypertension ([facility]) - SITagliptin phosphate (JANUVIA) 50 mg tablet; Take 1 tablet (50 mg total) by mouth in the morning. Type 2 DM -Managed by endocrine in [place] She believes her A1c is below 7% [...] needed for sore throat. Tylenolas needed per maintenance technician guidelines for fever or pain. Body mass [...] KAIDEN Werner 12/15/23 1559 documented in this encounterMer[facility]01-[facility]24 History of Present illness Narrative* Casimiro Muñoz MD - 11/25/2023 2:30 PM EST Images from the original note were not included. [facility] 11/25/23 Cuca Dee is a 78 y.o. year old female seen today in the oncology clinic. Chief Complaint Patient presents with Follow-up History of Present Illness: Mrs. Dee is a 78 y.o. female with history of aortic valve stenosis, she had PCI earlier in the year at [facility] for coronary disease. during the cardiac workup [...] mammary carcinoma, grade 2, ER strongly positive ID moderately positive and [id number]. There was also suspicious spine lesion, MRI [...] use Cataract Dental disease Depression Diabetes mellitus [place] Diabetes mellitus type 2, controlled ([facility]) Encephalitis Foot fracture, left GERD (gastroesophageal reflux disease) Heart murmur HLD (hyperlipidemia) Hypertension Incontinence Injury of back Insulin dependent diabetes mellitus Kidney failure STAGE 4 Lumbar spondylolysis Murmur Obesity CHELSEA (obstructive sleep apnea) no machine Peptic ulceration Peripheral vascular disease ([facility] Shortness of breath TIA (transient ischemic attack) Upper respiratory infection UTI (urinary tract infection) Visual impairment Wears dentures Past Surgical History: Procedure Laterality Date BREAST BIOPSY Right 03/01/2023 ULT BIOPSY CATARACT EXTRACTION SECTION SECTION 03/14/1974 EGD N/A 10/17/2019 Performed by Sarai Bell DO at [facility] HYSTEROSCOPY DILATION CURETTAGE MYOSURE N/A 01/29/2021 Performed by Jv Briones MD at [facility] INJECTION BLOCK EPIDURAL CAUDAL STEROID N/A 08/14/2022 Performed by Arnulfo Gonzalez MD at [facility] INJECTION BLOCK EPIDURAL CAUDAL STEROID N/A 06/06/2021 Performed by Arnulfo Gonzalez MD at [facility] INJECTION BLOCK EPIDURAL CAUDAL STEROID N/A 04/25/2021 Performed by Arnulfo Gonzalez MD at [facility] INJECTION CAUDAL EPIDURAL WITH CATHETER, STEROID N/A 05/03/2020 Performed by Arnulfo Gonzalez MD at [facility] INJECTION CAUDAL EPIDURAL WITH CATHETER, STEROID N/A 11/24/2019 Performed by Arnulfo Gonzalez MD at [facility] INJECTION CAUDAL EPIDURAL WITH CATHETER, STEROID N/A 04/21/2019 Performed by Arnulfo Gonzalez MD at [facility] INJECTION MEDIAL BRANCH NERVE BLOCK Bilateral L 4/5, 5/1 Bilateral 08/18/2019 Performed by Arnulfo Gonzalez MD at [facility] INJECTION MEDIAL BRANCH NERVE BLOCK Bilateral L 4/5, 5/1 Bilateral 06/23/2019 Performed by Arnulfo Gonzalez MD at [facility] INJECTION STEROID EPI 1 WITH SEDATION Right L 4, 5 NR Right 03/17/2019 Performed by Arnulfo Gonzalez MD at [facility] INJECTION STEROID EPI 1 WITH SEDATION: right L45 nroot Right 08/15/2018 Performed by Arnulfo Gonzalez MD at [facility] LEFT L4, AND 5 NERVE ROOT INJECTION 2 OF 2 Left 07/22/2018 Performed by Arnulfo Gonzalez MD at [facility] LEFT L4, AND L5 NERVE ROOT 1 OF 2 Left 07/04/2018 Performed by Arnulfo Gonzalez MD at [facility] PERCUTANEOUS CORONARY INTERVENTION SHUNT INSERTION TONSILLECTOMY AGE 4 Transcutaneous aortic valve replacement/Transfemoral/Kwan N/A 08/17/2023 Performed by Chava Norris MD at [facility] CARDIAC CATH LABS Valvuloplasty aortic N/A 06/03/2023 Performed by Chava Norris MD at [facility] CARDIAC CATH LABS Family History [...] min Stress: No Stress Concern Present (10/05/2022) [employer] - Occupational Stress Questionnaire Feeling of Stress : Not at all Social Connections: Moderately Isolated (10/05/2022) Social Connection and Isolation Panel [NHANES] Frequency of Communication with Friends and Family: Never Frequency of Social Gatherings with Friends and Family: Never Attends [employer] Services: More than 4 times per year [...] nephropathy, without long-term current use of insulin [place] Signed by: KAIDEN Santana Monitor blood sugars four times daily and as needed clopidogreL 75 mg tablet Refills: 0 Dose: 75 mg Commonly known as: PLAVIX COMFORT EZ PEN NEEDLES 32 gauge x 5/16 needle Quantity: 200 each Refills: 6 For diagnoses: Type 2 diabetes mellitus with stage 4 chronic kidney disease, with long-term currentuse of insulin ([facility] Dose: 4 applicator Signed by: KAIDEN Santana 4 applicators, miscellaneous, See admin instructions, 4 times daily injection Generic drug: pen needle, diabetic DEXCOM G6 CONTRACT POST OFFICE CLERK misc Refills: 0 Dose: 1 Device Generic drug: blood-glucose meter,continuous DEXCOM G6 SENSOR device Refills: 0 Generic drug: blood-glucose sensor gabapentin 300 mg capsule Quantity: 180 capsule Refills: 1 Doctor's comments: 90 Day Supply. 1 refill For diagnoses: 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 mellitus ([facility] Dose: 300 mg Signed by: KAIDEN Santana 300 mg, oral, 2 times daily Commonly known as: NEURONTIN hydroCHLOROthiazide 25 mg tablet Refills: 0 Dose: 25 mg Commonly known as: HYDRODIURIL insulin lispro 100 unit/mL insulin pen Refills: 0 For diagnoses: Mixed diabetic hyperlipidemia associated with type 2 diabetes mellitus ([facility] Dose: 2 Units Signed by: RONNA Solis [...] nephropathy, without long-term current use of insulin ([facility] Signed by: KAIDEN Santana Monitor blood sugars four times daily and as needed Commonly known as: onetouch ultrasoft * ONETOUCH DELICA PLUS LANCET 33 gauge misc Refills: 0 Generic drug: lancets letrozole 2.5 mg chemo tablet Quantity: 90 tablet Refills: 3 For diagnoses: 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 female breast, unspecified estrogen receptor status ([facility] Dose: 2.5 mg Signed by: Dr. Casimiro Muñoz MD 2.5 mg, oral, Daily Commonly known as: FEMARA LEVEMIR FLEXPEN 100 unit/mL (3 mL) insulin pen Quantity: 30 mL Refills: 3 For diagnoses: Controlled type 2 diabetes mellitus with diabetic nephropathy, without long-term current use of insulin ([facility] Signed by: KAIDEN Santana INJECT 30 UNITS UNDER THE SKIN NIGHTLY Generic drug: insulin detemir U-100 metoprolol succinate XL 25 mg 24 hr tablet Quantity: 90 tablet Refills: 2 For diagnoses: Essential hypertension, Athscl heart disease of [place] coronary artery w/o ang pctrs Dose: 25 [...] Dose: 4 mg Signed by: Dr. Giovanny Penny, DO 4 mg, oral, Every 8 hours PRN Commonly known as: ZOFRAN ODT pantoprazole 40 mg EC tablet Quantity: 90 tablet Refills: 1 For diagnoses: GERD without esophagitis Dose: 40 mg Signed by: KAIDEN Santana 40 mg, oral, Daily Commonly known as: PROTONIX sertraline 100 mg tablet Quantity: 90 tablet Refills: 1 For diagnoses: Major depressive disorder in partial remission, unspecified whether recurrent ([facility]) Dose: 100 mg Signed by: KAIEDN Santana 100 mg, oral, Daily Commonly known as: ZOLOFT SITagliptin phosphate 50 mg tablet Quantity: 90 tablet Refills: 1 For diagnoses: Diabetes mellitus type 2, insulin dependent ([facility]), Type 2 diabetes mellitus withstage 3b chronic kidney disease and hypertension ([facility]) Dose: 50 mg Signed by: KAIDEN Santana [...] right breast in female, estrogen receptor positive ([facility]) Other Visit Diagnoses 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 female breast, unspecified estrogen receptor status ([facility]) - Primary Relevant Orders CBC with auto [...] this note were generated using voice recognition CS-Keys dictation software. Although every effort was made to ensure the accuracy of this automated clinical liaison, some errors in clinical liaison may have occurred. CC: Patient Care Team: KAIDEN Werner as PCP - General (Family Medicine) John Quiles MD (Nephrology) KAIDEN Hsu as Nurse Practitioner (Pulmonary Medicine) Madison Ye MD as Referring Physician (Endocrinology, Diabetes & Metabolism) Casimiro Muñoz MD as Consulting Physician (Hematology) PCP:Pam Stinson Referring MD: Pam Stinson AP* documented in this encounterNorthwestern Medical CenterTimehop01-11-2024 Instructions* Patient Instructions* Casimiro Muñoz MD - [...] acute distress noted,no concerns voiced. * Sasha Maldonado, PT - 12/10/2022 11:46 AM EST Physical Therapy Facility/Department: [address] Physical Therapy Name: Cuca Dee : 1945 Date of Service: 12/10/2022 Discharge [...] 12/09/2022 1:06 PM EST Physical Therapy Facility/Department: [address] [place] Daily Treatment Note NAME: Cuca Dee : 1945 Date of Service: 12/09/2022 Discharge [...] CASILLAS PTA * Radha Moya APRN - [place] - 12/09/2022 11:13 AM EST Images from the original note were not included. [employer] Instrument Technician Progress Note Date: 12/09/2022 Patient name: Cuca Dee Date of admission: 12/07/2022 5:55 PM Date of : 1945 PCP: Michael Duarte Reason for Admission: S/P angioplasty with stent [...] Plans for TAVR work-up as OP [employer] [phone] * Princess Puente, PT - 12/08/2022 2:57 PM EST Physical Therapy Facility/Department: [address] [facility] Initial Assessment Name: Cuca Dee : 1945 Date of Service: 12/08/2022 The [...] pt repositioned in bed for comfort upon show card writer's exit. Subjective Subjective: RN and pt [...] rollator at baseline) Transfer Assistance: Independent Active Miter Saw Operator: No Mode of Transportation: Friends, Cab Occupation: [...] Treatment Minutes: 23 Minutes Princess Puente PT * Rita Leos, ALICE - CORPORATE STRATEGIST - 12/08/2022 1:02 PM EST Images from the original note were not included. [place] [employer] Instrument Technician Progress Note Date: 12/08/2022 Patient name: Cuca Dee Date of admission: 12/07/2022 5:55 PM Date of : 1945 PCP: Michael Duarte Reason for Admission: S/P angioplasty with stent [...] a max pressure of: 12 graciela. Resolute [place] 3.0 x 12 CÉSAR. 1 inflation(s) to [...] stable Plans for TAVR work-up as OP [employer] Instrument Technician [facility]. [phone] * Fany Bhakta RN - 12/08/2022 11:10 AM EST Miter Saw Operator discussed the next step in the TAVR process, an appointment with the cardiothoracic surgeon,with patient and daughter at bedside in [facility]. Office number given to daughter, she will call to schedule in the next couple days. Miter Saw Operator's contact number also given. * Joelle Enrique RN - 12/08/2022 10:00 AM EST Patient declined AM glucose check. She has Dexcom meter in place showing glucose of 99. [facility] policy of checking glucose with our glucometer [...] room 501 via stretcher. Right groin assessed byHeather and show card writer. Groin remains soft. * Flory Shelby RN [...] RN - 12/07/2022 3:[address] Martienz out to view groin as large firm hematoma noted and marked. Manual pressure held * Keely Priest RN - 12/07/2022 3:00 PM EST Manual pressure held per show card writer for [address] Martinez at [...] of 2. Bilateral groin areas clipped with show card writer and Maggi estrada present. Daughter Ismael at bedside with patient. History and physical needs updated. * Keely Priest RN - 12/07/2022 1:30 PM EST Received post cardiac cath procedure to [facility] room 10. Assessment obtained. Restrictions reviewed with patient. Post procedure pathway initiated. Right site noted to have small hematoma, manual pressure held by [place]. Band aid dry and intact. Family at side. Patient without complaints. Head of bed flat with right leg straight. [facility] [employer] Work Phone: [phone]) 708-789701-23-2023 Note [facility] Vascular Lower Extremities Arterial Duplex Procedure Patient Name CHRISTA Date of Study 12/07/2022 [facility] Date of 1945 Gender Female Age 77 year(s) Race Room Number 0501 Height: 65 inch, 165.1 cm Corporate ID # [id number] Weight: 208 pounds, 94.3 kg Patient BSA: 2.01 m^2 BMI: 34.61 kg/m^2 MR # [id number] Application Specialist Whit Gan, KENISHA Interpreting Physician Darnell Monique Referring Referring Physician [...] ! !! ! ! ! ! ! +---------++-----+-----+------+----+------++---+-----+------+----+---------+MHPN STV [id number] History of Present illness Narrative* Keely Priest RN - 11/24/2022 1:00 PM EST Patient admitted, consent signed and questions answered. Patient ready for procedure. Call light toreach with side rails up 2 of 2. Bilateral groin areas clipped with show card writer and Jose PIERRE present. Daughter Ileana at bedside with patient. History and physical needs updated. documented in this encounterPandaBed Phone: [phone]) 954-896105-06-2021 NotePROCEDURE: XR FOOT LT MIN 3 VIEWS COMPARISON: None. HISTORY: Pain FINDINGS: BONES:No acute fracture or dislocation. Persistent flexion of the toes limits their evaluation. Mild to moderate degenerative changes with joint space narrowing and marginal osteophyte formation, most significant at the first metatarsophalangeal joint where [id number] endplate is observed SOFT TISSUES:Negative. No visible soft tissue swelling. EFFUSION:None visible. OTHER: Negative. IMPRESSION: Moderate degenerative changes, no acute fracture Electronically authenticated by: GIOVANNY NICOLE Date: 2021-03-20 08:29[facility] note* Clinical Note Date No Information [facility] Work Phone: Discharge summary* Clinical Note Date No Information [facility] Work Phone: Evaluation note* Diagnosis Severe aortic valve stenosis- Primary Aortic valve disorders documented in this encounter [facility] Phone: evaluation note* Diagnosis RAIN (acute kidney injury) (HCC)- Primary Acute kidney failure, unspecified documented in this encounter [facility] Phone: evaluation note* Diagnosis Severe aortic valve [...] kidney disease (HCC) Coronary artery disease involving red cliff coronary artery of red cliff heart without angina pectoris documented in this encounter [facility] Phone: evaluation note* Diagnosis Aortic valve stenosis, etiology of cardiac valve disease unspecified documented in this encounter [facility] Phone: [email or web address] note* Diagnosis Aortic valve stenosis, etiology of cardiac valve disease unspecified documented in this encounter [facility] Phone: [email or web address] note* Diagnosis Nonrheumatic aortic valve stenosis- Primary S/p TAVR (transcatheter aortic valve replacement), bioprosthetic Coronary artery disease involving red cliff coronary artery of red cliff heart without angina pectoris documented in this encounter [facility] SystemEvaluation note* Diagnosis Mixed diabetic hyperlipidemia associated with type 2 diabetes mellitus (CMS-HCC)- Primary Insomnia, unspecified type Elevated troponin level Other abnormal blood chemistry Recurrent UTI Urinary tract infection, site not specified [facility]* Diagnosis 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 breast in female, estrogen receptor positive (CMS-HCC)- Primary Metastasis to bone (CMS-HCC) Secondary malignant neoplasm of bone and bone marrow [facility] SystemEvaluation [facility]* Diagnosis 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 female breast, unspecified estrogen receptor status (CMS-HCC)- Primary [facility] SystemEvaluation note* Diagnosis 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 female breast, unspecified estrogen receptor status (CMS-HCC)- Primary documented in this encounter [facility] SystemEvaluation note* Diagnosis 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 female breast, unspecified estrogen receptor status (CMS-HCC)- Primary [facility] SystemEvaluation note* Diagnosis Insomnia, unspecified type [facility] SystemEvaluation note* Diagnosis Upper respiratory tract infection, unspecified type- Primary Normal pressure hydrocephalus ([facility]) 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 ([facility]) PVD (peripheral vascular disease) ([facility] Unspecified peripheral vascular disease 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 mellitus ([facility]) Stage 3b chronic kidney disease ([facility]) Major depressive disorder in partial remission, unspecified whether recurrent ([facility]) Essential hypertension Unspecified essential hypertension GERD without esophagitis Esophageal reflux 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 ([facility]) [facility]* Diagnosis Pneumonia due to other specified organism- Primary [facility] in this [facility]* Diagnosis 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 female breast, unspecified estrogen receptor status ([facility]) [facility]* Diagnosis Major depressive disorder in partial remission, unspecified whether recurrent ([facility]) [facility]* Diagnosis Essential hypertension Unspecified essential hypertension Major depressive disorder in partial remission, unspecified whether recurrent ([facility]) [facility]* Diagnosis Acute cystitis without hematuria- Primary Urge incontinence of urine Urge incontinence documented in this [facility]* Diagnosis Hypoglycemia- Primary Hypoglycemia, unspecified Mild intermittent reactive airway disease with acute exacerbation [facility] this [facility]* Diagnosis Hypoglycemia- Primary Hypoglycemia, unspecified Need for influenza vaccination Need for prophylactic vaccination and inoculation against influenza Altered mental status, unspecified altered mental status type documented in this encounter [facility]* Diagnosis Beverly infection of flexural skin- Primary Candidiasis of skin and nails [facility] this [facility]* Diagnosis 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 breast in female, estrogen receptor positive ([facility])- Primary documented in this encounter [facility] System[facility] note* Diagnosis 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 mellitus ([facility]) [facility]* Diagnosis Insomnia, unspecified type- Primary Moderate episode of recurrent major depressive disorder ([facility]) Stage 3b chronic kidney disease ([facility]) [facility] this [facility]* Diagnosis 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 breast in female, estrogen receptor positive ([facility])- Primary Metastasis to bone ([facility]) Secondary malignant neoplasm of bone and bone marrow documented in this encounter [facility] System[facility] note* Type Assessment Date No Information [facility] Work Phone: Evaluation note* Diagnosis MRSA (methicillin resistant Staphylococcus aureus)- Primary Methicillin resistant Staphylococcus aureus in conditions classified elsewhere and of unspecified site Staphylococcus aureus bacteremia with sepsis ([facility]) documented in this encounter [facility] SystemEvaluation note* Diagnosis Staphylococcus aureus bacteremia with sepsis ([facility])- Primary documented in this encounter [facility] SystemEvaluation note* Diagnosis Staphylococcus aureus bacteremia with sepsis ([facility])- Primary MRSA (methicillin resistant Staphylococcus aureus) Methicillin resistant Staphylococcus aureus in conditions classified elsewhere and of unspecified site documented in this encounter [facility] SystemEvaluation note* Diagnosis Staphylococcus aureus bacteremia with sepsis ([facility])- Primary MRSA (methicillin resistant Staphylococcus aureus) Methicillin resistant Staphylococcus aureus in conditions classified elsewhere and of unspecified site documented in this encounter [facility] SystemEvaluation note* Diagnosis Staphylococcus aureus bacteremia with sepsis ([facility])- Primary MRSA (methicillin resistant Staphylococcus aureus) Methicillin resistant Staphylococcus aureus in conditions classified elsewhere and of unspecified site documented in this encounter [facility] SystemEvaluation note* Diagnosis Staphylococcus aureus bacteremia with sepsis ([facility])- Primary MRSA (methicillin resistant Staphylococcus aureus) Methicillin resistant Staphylococcus aureus in conditions classified elsewhere and of unspecified site documented in this encounter [facility] System[facility] note* Diagnosis Staphylococcus aureus bacteremia with sepsis ([facility])- Primary MRSA (methicillin resistant Staphylococcus aureus) Methicillin resistant Staphylococcus aureus in conditions classified elsewhere and of unspecified site documented in this encounter [facility] SystemEvaluation note* Diagnosis Staphylococcus aureus bacteremia with sepsis ([facility])- Primary MRSA (methicillin resistant Staphylococcus aureus) Methicillin resistant Staphylococcus aureus in conditions classified elsewhere and of unspecified site documented in this encounter [facility] SystemEvaluation note* Diagnosis Staphylococcus aureus bacteremia with sepsis ([facility])- Primary MRSA (methicillin resistant Staphylococcus aureus) Methicillin resistant Staphylococcus aureus in conditions classified elsewhere and of unspecified site documented in this encounter [facility] SystemEvaluation note* Diagnosis Staphylococcus aureus bacteremia with sepsis ([facility])- Primary MRSA (methicillin resistant Staphylococcus aureus) Methicillin resistant Staphylococcus aureus in conditions classified elsewhere and of unspecified site documented in this encounter [facility] SystemEvaluation note* Diagnosis Moderate major depression ([facility])- Primary Major depressive disorder, single episode, moderate Insomnia, unspecified type Normal pressure hydrocephalus [place] Idiopathic normal pressure hydrocephalus ([facility]) Acute on chronic diastolic heart failure ([facility]) Acute on chronic diastolic heart failure Diabetes mellitus type 2, insulin dependent [place] documented in this encounter [facility] note* Diagnosis Acute respiratory failure with hypoxia ([facility])- Primary Acute respiratory failure with hypoxia [place] Nondisplaced fracture of lesser trochanter of right femur, initial encounter for closed fracture ([facility] Generalized weakness Closed fracture of right hip, initial encounter ([facility] Hypoxia Hypoxemia Type 2 diabetes mellitus with hypoglycemia without coma, with long-term current use of insulin [place] 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 mellitus ([facility] Mixed diabetic hyperlipidemia associated with type 2 diabetes mellitus ([facility] Obstructive sleep apnea syndrome Obstructive sleep apnea (adult) (pediatric) Essential (primary) hypertension Unspecified essential hypertension Stage 3b chronic kidney disease ([facility] Type 2 diabetes mellitus with diabetic chronic kidney disease ([facility] Closed fracture of right hip ([facility] Nondisplaced fracture of lesser trochanter of right femur, initial encounter for closed fracture ([facility] Hypomagnesemia Disorders of magnesium metabolism Iron deficiency anemia Unspecified iron deficiency anemia Acute on chronic diastolic congestive heart failure ([facility]) documented in this encounter [facility] note* Diagnosis Hospital discharge follow-up- Primary Other follow-up examination Closed fracture of right hip, sequela documented in this encounter [facility] SystemEvaluation note* Diagnosis Acute right hip pain- Primary Acute pain of both hips Closed avulsion fracture of right hip with routine healing, subsequent encounter documented in this encounter [facility] HealthcareEvaluation noteNo assessment information availableRiverside [facility] Work Phone: Evaluation note* Diagnosis Intractable nausea and vomiting- Primary Adnexal mass Other specified symptom associated with female genital organs Intractable nausea and vomiting Type 2 diabetes mellitus without complication, without long-term current use of insulin ([facility] Generalized weakness Hypomagnesemia Disorders of magnesium metabolism Iron deficiency anemia due to chronic blood loss Iron deficiency anemia secondary to blood loss (chronic) 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 mellitus ([facility]) Iron deficiency anemia Unspecified iron deficiency anemia Chronic diastolic congestive heart failure ([facility] Weakness Other malaise and fatigue Adnexal mass Other specified symptom associated with female genital organs [facility]* Diagnosis Chronic diastolic congestive heart failure ([facility])- Primary Hypertensive heart and chronic kidney disease with heart failure and stage 1 through stage 4 chronic kidney disease, or unspecified chronic kidney disease ([facility]) Intractable nausea and vomiting Urinary tract infection without hematuria, site unspecified [facility] this [facility]* Diagnosis Acute right hip pain- Primary Closed avulsion fracture of right hip with routine healing, subsequent encounter Intertrochanteric fracture of right hip, closed, initial encounter ([facility]) documented in this encounter [facility] HealthcareEvaluation note* Diagnosis Hypertensive heart and chronic kidney disease with heart failure and stage 1 through stage 4 chronic kidney disease, or unspecified chronic kidney disease ([facility])- Primary Chronic obstructive pulmonary disease, unspecified COPD type ([facility] Lumbar back pain with radiculopathy affecting left lower extremity Spinal stenosis of lumbar region with neurogenic claudication Closed fracture of right hip, sequela Rhinitis, unspecified type documented in this encounter [facility] SystemEvaluation note* Diagnosis Pathological fracture of right hip with routine healing, unspecified pathological cause, subsequent encounter- Primary Closed nondisplaced fracture of pelvis with routine healing, unspecified part of pelvis, subsequent encounter Mixed diabetic hyperlipidemia associated with type 2 diabetes mellitus ([facility] Hypertensive heart and chronic kidney disease with heart failure and stage 1 through stage 4 chronic kidney disease, or unspecified chronic kidney disease ([facility]) documented in this encounter [facility] SystemEvaluation note* Diagnosis Chronic diastolic congestive heart failure ([facility])- Primary Pathological fracture of right hip with routine healing, unspecified pathological cause, subsequent encounter Closed fracture of right hip, sequela Closed nondisplaced fracture of lesser trochanter of right femur with delayed healing Other abnormalities of gait and mobility Hypertensive heart and chronic kidney disease with heart failure and stage 1 through stage 4 chronic kidney disease, or unspecified chronic kidney disease ([facility]) documented in this encounter [facility] SystemHistory and physical note* Clinical Note Date No Information [facility] Work Phone: Hospital Discharge instructions* Attachments The following attachments cannot be sent through Care Everywhere. * PCI (Percutaneous Coronary Intervention): Post-op (Guyanese) [facility] Work Phone: Hospital Discharge instructionsNot on filedocumented in this encounterOhioHealth [facility] Hospital [facility] SystemInstructionsNot on filedocumented in this encounterOhioHealth Berger Hospital [facility] SystemInstructionsNot on filedocumented in this encounterOhioHealth [facility] Hospital [facility] SystemInstructionsNot on filedocumented in this encounterOhioHealth Berger Hospital [facility] SystemInstructions* Attachments The following attachments cannot be sent through Care Everywhere. * Carbohydrate Counting Diet (Guyanese) documented in this encounterBarney Children's Medical CenterRain SystemInstructionsNot on file documented in this [facility]biltRain SystemInstructionsNot on file documented in this encounterProOhiohealth Grove City Methodist HospitalRain SystemInstructionsNot on file documented in this [facility] [employer] SystemInstructions* Attachments The following attachments cannot be sent through Care Everywhere. * Bacterial Upper Respiratory Infection, Adult (Guyanese) documented in this [facility] [employer] SystemInstructions* Attachments The following attachments cannot be sent through Care Everywhere. * Pneumonia in adults (Guyanese) documented in this encounterProOhiohealth Grove City Methodist HospitalRain SystemInstructionsNot on file documented in this encounterProOhiohealth Grove City Methodist HospitalRain SystemInstructionsNot on file documented in this encounterBarney Children's Medical CenterRain SystemInstructionsNot on file documented in this encounterOhioHealth Berger Hospital [facility] SystemInstructionsNot on file documented in this encounterOhioHealth [facility] Hospital [facility] SystemInstructions* Attachments The following attachments cannot be sent through Care Everywhere. * Urinary Tract Infection Discharge Instructions, Adult (Guyanese) documented in this [facility] [employer] SystemInstructions* Attachments The following attachments cannot be sent through Care Everywhere. * Low blood sugar in people without diabetes (Guyanese) documented in this encounterProOhiohealth Grove City Methodist HospitalRain SystemInstructionsNot on file documented in this encounterBarney Children's Medical CenterRain SystemInstructionsNot on file documented in this [facility] [employer] SystemInstructionsNot on file documented in this [facility] [employer] SystemInstructions* Attachments The following attachments cannot be sent through Care Everywhere. * Flu vaccine (Guyanese) documented in this encounterProOhiohealth Grove City Methodist Hospitalca Health SystemInstructionsNot on file documented in this encounterProMedica Health SystemInstructionsNot on file documented in this encounterProMedica Health SystemInstructionsNot on file documented in this encounterProOhiohealth Grove City Methodist Hospitalca Health SystemInstructions* Attachments The following attachments cannot be sent through Care Everywhere. * Insomnia (Guyanese) documented in this encounterProOhiohealth Grove City Methodist Hospitalca Health SystemInstructionsNot on file documented in this encounterProMedica Health SystemInstructionsNot on file documented in this encounterProMedica Health SystemInstructionsNot on file documented in this encounterProMedica Health SystemInstructionsNot on file documented in this encounterProMedica Health SystemInstructionsNot on file documented in this encounterProMedica Health SystemInstructions* Attachments The following attachments cannot be sent through Care Everywhere. * Heart failure (Guyanese) documented in this encounterProMedica Health SystemInstructionsNot on file documented in this encounterProMedica Health SystemInstructionsNot on file documented in this encounterProMedica Health SystemInstructionsNot on file documented in this encounterProMedica Health SystemInstructionsNot on file documented in this encounterProMedica Health SystemInstructionsNot on file documented in this encounterProMedica Health SystemInstructionsNot on file documented in this encounterProOhiohealth Grove City Methodist HospitalFamilyID Health SystemProgress note* Clinical Note Date No Information [facility] Work Phone: Renawv for referral (narrative)* Reason For Referral No Information [facility] Work Phone: Reason for referral (narrative)No reason for referral information availableRiverside [facility] Work Phone: Reason for visit Narrative* Auth/Cert Specialty Diagnoses / Procedures Referred By Polo t Referred To Contact Diagnoses weakness [facility] [address] [place] [address] Phone: tel: fax: Referral ID Status Reason Start Date Expiration Date Visits Re quested Visits Authorized [id number] 1 1 [facility] Advance Directives No Advanced Directives Records FoundDocuments on File Type Date Recorded Patient Motor Coach Chauffeur Expl anation ACP-Advance Directive ACP-Power of Hand Reamer Latest Code Status on File Code Status [...] Documents on File Type Date Recorded Patient Motor Coach Chauffeur Expl anation ACP-Advance Directive 12/14/2022 2:27 PM Latest Code Status on File Code Status Date Activated Date Inactivated Comments Full Code 12/07/2022 11:24 AM 12/11/2022 1:10 PM Full Code 11/24/2022 11:19 AM 11/25/2022 2:46 AM Full Code 09/28/2022 4:15 AM 09/30/2022 6:37 PM Full Code 10/15/2014 1:49 PM 10/15/2014 8:39 PM Documents on File Type Date Recorded Patient Motor Coach Chauffeur Expl anation ACP-Advance Directive 12/14/2022 2:27 PM Latest Code Status on File Code Status Date Activated Date Inactivated Comments Full Code 12/07/2022 11:24 AM 12/11/2022 1:10 PM Documents on File Type Date Recorded Patient Motor Coach Chauffeur Expl anation Durable Power of Hand Reamer 10/21/2022 2:24 PM DNR Physician Order 10/21/2022 2:24 PM Living Will 01/30/2021 12:07 PM Durable Power of Hand Reamer 01/30/2021 12:07 PM Living Will 01/29/2021 6:19 [...] Documents on File Type Date Recorded Patient Motor Coach Chauffeur Expl anation Durable Power of Hand Reamer 10/21/2022 2:24 PM DNR Physician Order 10/21/2022 2:24 PM Living Will 01/30/2021 12:07 PM Durable Power of Hand Reamer 01/30/2021 12:07 PM Living Will 01/29/2021 6:19 AM Advance Directive 01/29/2021 6:18 AM DNR Physician Order 11/03/2019 1:27 PM Latest Code Status on File Code Status Date Activated Date Inactivated Comments Full Code 03/28/2023 5:07 PM 04/01/2023 3:32 PM Code Status History Code Status Date Activated Date Inactivated Comments DNR Comfort Care Arrest (DNR-CCA) [place] 10/06/2022 8:43 AM 10/06/2022 8:41 PM Full [...] Inactivated Comments DNR Comfort Care Arrest (DNR-CCA) [place] 10/06/2022 8:43 AM 10/06/2022 8:41 PM Full [...] Documents on File Type Date Recorded Patient Motor Coach Chauffeur Expl anation Durable Power of Hand Reamer 03/30/2025 9:23 AM Durable Power of Hand Reamer 10/21/2022 2:24 PM DNR Physician Order 10/21/2022 2:24 PM Living Will 01/30/2021 12:07 PM Durable Power of Hand Reamer 01/30/2021 12:07 PM Living Will 01/29/2021 6:19 AM Advance Directive 01/29/2021 6:18 AM DNR Physician Order 11/03/2019 1:27 PM Documents on File Type Date Recorded Patient Motor Coach Chauffeur Expl anation Durable Power of Hand Reamer 03/30/2025 9:23 AM Durable Power of Hand Reamer 10/21/2022 2:24 PM DNR Physician Order 10/21/2022 2:24 PM Living Will 01/30/2021 12:07 PM Durable Power of Hand Reamer 01/30/2021 12:07 PM Living Will 01/29/2021 6:19 [...] Advance Directives No June 26, 2025 5:21am Date Activated Date Inactivated Comments 07/02/2025 6:12 PM Date Activated Date Inactivated Comments 07/02/2025 2:38 PM 07/02/2025 5:45 PM Date Activated Date Inactivated Comments 06/11/2025 4:30 AM 06/13/2025 5:13 PM Date Activated Date Inactivated Comments 05/13/2025 2:45 PM 05/15/2025 7:30 PM Date Activated Date Inactivated Comments 03/16/2025 3:53 PM 03/19/2025 2:00 PM Date Activated Date Inactivated Comments 07/02/2025 6:12 PM 07/05/2025 8:36 PM Date Activated Date Inactivated Comments 07/02/2025 2:38 PM 07/02/2025 5:45 PM Date Activated Date Inactivated Comments 06/11/2025 4:30 AM 06/13/2025 5:13 PM Date Activated Date Inactivated Comments 05/13/2025 2:45 PM 05/15/2025 7:30 PM Date Activated Date Inactivated Comments 03/16/2025 3:53 PM 03/19/2025 2:00 PM Date Activated Date Inactivated Comments 07/02/2025 6:12 PM 07/05/2025 8:36 PM Date Activated Date Inactivated Comments 07/12/2025 2:37 PM Date Activated Date Inactivated Comments 07/10/2025 5:33 PM 07/12/2025 1:26 PM Date Activated Date Inactivated Comments 07/02/2025 6:12 PM 07/05/2025 8:36 PM Date Activated Date Inactivated Comments 07/02/2025 2:38 PM 07/02/2025 5:45 PM Date Activated Date Inactivated Comments 06/11/2025 4:30 AM 06/13/2025 5:13 PM Date Activated Date Inactivated Comments 07/12/2025 2:37 PM 07/18/2025 2:26 PM Summary Purpose Family History No Family [...] C STC MORP CARD ONLY 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, LOCK AND DAM EQUIPMENT REPAIRER - CORPORATE STRATEGIST [address] [place] [address] Referral ID Status Reason Start Date Expiration Date Visits Re quested Visits Authorized [id number] Closed 01/11/2023 04/10/2023 1 1 Specialty Diagnoses / Procedures Referred By Contac t Referred To Contact Radiology Diagnoses Aortic valve stenosis, etiology of cardiac valve disease unspecified Procedures CTA CHEST ABDOMEN PELVIS W CONTRAST 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, LOCK AND DAM EQUIPMENT REPAIRER - CORPORATE STRATEGIST [address] [place] [address] Referral ID Status Reason Start Date Expiration Date Visits Re quested Visits Authorized [id number] Closed 01/11/2023 04/10/2023 1 1 Specialty Diagnoses / Procedures Referred By Contac t Referred To Contact Radiology Diagnoses 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 female breast, unspecified estrogen receptor status (CMS-HCC) 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 breast in female, estrogen receptor positive (CMS-HCC) Procedures PET CT skull to thigh Casimiro Muñoz MD [address] [place] [address] [address] [place] [address] Referral ID Status Reason Start Date Expiration Date V isits Requested Visits Authorized [id number] Pending Review 11/25/2023 11/24/2024 1 1 Chief Complaint and Reason for Visit Chief Complaint Admit Date Unknown June 25, 2025 1: 36pm Additional Source Comments INFORMATION SOURCE (unrecogn ized section and content) DATE CREATED AUTHOR 03/27/2021 [facility] DATE CREATED AUTHOR AUTHOR'S ORGANIZ ATION 04/09/2021 [facility] DATE CREATED AUTHOR AUTHOR'S ORGANIZ ATION 04/06/2022 [facility] DATE CREATED AUTHOR AUTHOR'S ORGANIZ ATION 01/22/2023 [facility] DATE CREATED AUTHOR AUTHOR'S ORGANIZ ATION 02/12/2025 [facility] DATE CREATED AUTHOR AUTHOR'S ORGANIZ ATION 06/07/2025 [facility] DATE CREATED AUTHOR AUTHOR'S ORGANIZ ATION 06/29/2025 [facility] DATE CREATED AUTHOR AUTHOR'S ORGANIZ ATION 07/07/2025 [facility] DATE CREATED AUTHOR AUTHOR'S ORGANIZ ATION 07/13/2025 [facility] DATE CREATED AUTHOR AUTHOR'S ORGANIZ ATION 07/14/2025 [facility] DATE CREATED AUTHOR AUTHOR'S ORGANIZ ATION 07/15/2025 [facility] DATE CREATED AUTHOR AUTHOR'S ORGANIZ ATION 07/28/2025 [facility] Reason for Visit (unrecogniz ed section and content) Specialty Diagnoses / Procedures Referred By Contac t Referred To Contact [facility] [address] [place] [address] Referral ID Status Reason Start Date Expiration Date Visits Re quested Visits Authorized [id number] 1 1 Referral ID Status Reason Start Date Expiration Date Visits Re quested Visits Authorized [id number] 1 1 Specialty Diagnoses / Procedures Referred By Contac t Referred To Contact Radiology Diagnoses Aortic valve stenosis, etiology of cardiac valve disease unspecified Procedures CT CARDIAC W C STC MORP CARD ONLY 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, L[employer] AND DAM EQUIPMENT REPAIRER - CORPORATE STRATEGIST [address] [place] [address] Referral ID Status Reason Start Date Expiration Date Visits Re quested Visits Authorized [id number] Closed 01/11/2023 04/10/2023 1 1 Specialty Diagnoses / Procedures Referred By Contac t Referred To Contact Radiology Diagnoses Aortic valve stenosis, etiology of cardiac valve disease unspecified Procedures CTA CHEST ABDOMEN PELVIS W CONTRAST 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, L[employer] DAM EQUIPMENT REPAIRER - CORPORATE STRATEGIST [address] [place] [address] Referral ID Status Reason Start Date Expiration Date Visits Re quested Visits Authorized [id number] Closed 01/11/2023 04/10/2023 1 1 Reason Onset [...] Hypoxia Acute respiratory failure with hypoxia (CMS-HCC) [facility] [address] [place] [address] Phone: tel: fax: Referral ID Status Reason Start Date Expiration Date Visits Re quested Visits Authorized [id number] 1 1 Reason Comments Follow-up Pneumonia, Hairline Fracture of hip. [facility] Reason Comments Pain Reason Onset Date Comments OTC Tylenol not working 06/18/2025 Reason Onset Date Comments Appointment 07/05/2025 Reason Onset Date Comments wants to know if she can do outpatient wants to be referred 06/21/2025 Reason Onset Date Comments Appointment 07/25/2025 Care Teams (unrecognized sec tion and content) Bounty Hunter Relationship Specialty Start Date End Date Michael Duarte PCP - General Family Medicine 09/29/22 Bounty Hunter Relationship Specialty Start Date End Date Michael Duarte PCP - General Family Medicine 09/29/22 Bounty Hunter Relationship Specialty Start Date End Date Michael Duarte PCP - General Family Medicine 09/29/22 Bounty Hunter Relationship Specialty Start Date End Date FeliciaMichael M PCP - General Family Medicine 09/29/22 Bounty Hunter Relationship Specialty Start Date End Date FeliciaMichael M PCP - General Family Medicine 09/29/22 Bounty Hunter Relationship Specialty Start Date End Date Pam Stinson, LOCK AND DAM EQUIPMENT REPAIRER - [facility] [address] [place] [address] PCP - General 01/15/23 Bounty Hunter Relationship Specialty Start Date End Date Pam Stinson LOCK AND DAM EQUIPMENT REPAIRER - [facility] [address], [place] [address] PCP - General 01/15/23 Bounty Hunter Relationship Specialty Start Date End Date aPm Stinson LOCK AND DAM EQUIPMENT REPAIRER-[facility] [address] [place] [address] PCP - General Family Medicine 09/28/23 Bounty Hunter Relationship Specialty Start Date End Date Pam Stinson LOCK AND DAM EQUIPMENT REPAIRER-[facility] [address] [place] [address] PCP - General Family Medicine 09/28/23 Bounty Hunter Relationship Specialty Start Date End Date Pam Stinson L[employer] AND DAM EQUIPMENT REPAIRER-[facility] [address] [place] [address] PCP - General Family Medicine 11/17/24 Bounty Hunter Relationship Specialty Start Date End Date Pam Stinson [facility] [address] [place] [address] PCP - General Family Medicine 11/17/24 Bounty Hunter Relationship Specialty Start Date End Date Pam Stinson [facility] [address] [place] [address] PCP - General Family Medicine 11/17/24 Bounty Hunter Relationship Specialty Start Date End Date Pam Stinson [facility] [address] [place] [address] PCP - General Family Medicine 09/28/23 Bounty Hunter Relationship Specialty Start Date End Date Pam Stinson [facility] [address] [place] [address] PCP - General Family Medicine 09/28/23 Bounty Hunter Relationship Specialty Start Date End Date Pam Stinson [facility] [address] [place] [address] PCP - General Family Medicine 09/28/23 Bounty Hunter Relationship Specialty Start Date End Date Pam Stinson [facility] [address] [place] [address] PCP - General Family Medicine 09/28/23 Bounty Hunter Relationship Specialty Start Date End Date Pam Stinson [facility] [address] [place] [address] PCP - General Family Medicine 09/28/23 Bounty Hunter Relationship Specialty Start Date End Date Pam Stinson [facility] DAM [facility] [address] [place] [address] PCP - General Family Medicine 09/28/23 Bounty Hunter Relationship Specialty Start Date End Date Pma Stinson [facility] [address] [place] [address] PCP - General Family Medicine 09/28/23 Bounty Hunter Relationship Specialty Start Date End Date Pam Stinson L[employer] AND DAM E[facility] [address] [place] [address] PCP - General Family Medicine 09/28/23 Bounty Hunter Relationship Specialty Start Date End Date Pam Stinson [facility] [address] [place] [address] PCP - General Family Medicine 09/28/23 Bounty Hunter Relationship Specialty Start Date End Date Pam Stinson [facility] [address] [place] [address] PCP - General Family Medicine 09/28/23 Bounty Hunter Relationship Specialty Start Date End Date Pam Stinson [facility] [address] [place] [address] PCP - General Family Medicine 09/28/23 Bounty Hunter Relationship Specialty Start Date End Date Pam Stinson [facility] [address] [place] [address] PCP - General Family Medicine 09/28/23 Bounty Hunter Relationship Specialty Start Date End Date Pam Stinson [facility] [address] [place] [address] PCP - General Family Medicine 09/28/23 Bounty Hunter Relationship Specialty Start Date End Date Pam Stinson [facility] [address] [place] [address] PCP - General Family Medicine 09/28/23 Bounty Hunter Relationship Specialty Start Date End Date Pam Stinson [facility] [address] [place] [address] PCP - General Family Medicine 09/28/23 Bounty Hunter Relationship Specialty Start Date End Date Pam Stinson [facility] [address] [place] [address] PCP - General Family Medicine 09/28/23 Bounty Hunter Relationship Specialty Start Date End Date Pam Stinson [facility] [address] [place] [address] PCP - General Family Medicine 09/28/23 Bounty Hunter Relationship Specialty Start Date End Date Pam Stinson [facility] [address] [place] [address] PCP - General Family Medicine 01/11/25 Bounty Hunter Relationship Specialty Start Date End Date Pam Stinson [facility] [address] [place] [address] PCP - General Family Medicine 01/11/25 Bounty Hunter Relationship Specialty Start Date End Date Pam Stinson [facility] [address] [place] [address] PCP - General Family Medicine 01/11/25 Bounty Hunter Relationship Specialty Start Date End Date Pam Stinson [facility] [address] [place] [address] PCP - General Family Medicine 01/11/25 Name Effective Dates (start - stop) Status Members No Information Bounty Hunter Relationship Specialty Start Date End Date Pam Stinson [facility] [address] [place] [address] PCP - General Family Medicine 01/11/25 Bounty Hunter Relationship Specialty Start Date End Date Pam Stinson [facility] [address] [place] [address] PCP - General Family Medicine 01/11/25 Bounty Hunter Relationship Specialty Start Date End Date Pam Stinson [facility] [address] [place] [address] PCP - General Family Medicine 01/11/25 Bounty Hunter Relationship Specialty Start Date End Date Pam Stinson [facility] [address] [place] [address] PCP - General Family Medicine 01/11/25 Bounty Hunter Relationship Specialty Start Date End Date Pam Stinson [facility] [address] [place] [address] PCP - General Family Medicine 01/11/25 Bounty Hunter Relationship Specialty Start Date End Date [facility] [address] [place] [address] PCP - General Family Medicine 03/16/25 Bounty Hunter Relationship Specialty Start Date End Date Pam Stinson [facility] [facility] DAM EQUIP[facility] [address] [place] [address] PCP - General Family Medicine 03/16/25 Bounty Hunter Relationship Specialty Start Date End Date Pam [facility] [address] [place] [address] PCP - General Family Medicine 03/16/25 Bounty Hunter Relationship Specialty Start Date End Date Pam Stinson [facility] [address] [place] [address] PCP - General Family Medicine 03/16/25 Bounty Hunter Relationship Specialty Start Date End Date Pam [facility] [address] [place] [address] PCP - General Family Medicine 03/16/25 Bounty Hunter Relationship Specialty Start Date End Date Pam Stinson L[facility] AND DAM EQUIPMENT [facility] [address] [place] [address] PCP - General Family Medicine 03/16/25 Bounty Hunter Relationship Specialty Start Date End Date Pam Stinson [facility] [address] [place] [address] PCP - General Family Medicine 03/16/25 Bounty Hunter Relationship Specialty Start Date End Date Pam Stinson LOCK AND DAM EQUIPMENT REPAIRER-[facility] [address] [place] [address] PCP - General Family Medicine 03/16/25 Bounty Hunter Relationship Specialty Start Date End Date Pam Stinson, LOCK AND DAM EQUIPMENT REPAIRER-[facility] [address] [facility] 05/14/[place] [address] PCP - General Family Medicine 05/14/25 Bounty Hunter Relationship Specialty Start Date End Date Vj Gray, [facility] [address] [place] [address] PCP - General Nurse Practitioner 05/30/25 Bounty Hunter Relationship Specialty Start Date End Date Unallocated, [place] [address] PCP - General Family Medicine 06/06/25 Bounty Hunter Relationship Specialty Start Date End Date Unallocated, MD Ciera Patel [facility] [place] [address] PCP - General Family Medicine 06/06/25 Bounty Hunter Relationship Specialty Start Date End Date Unallocated, [place] [address] PCP - General Family Medicine 06/06/25 Team Status: Inactive Member Role Status Dates Ra Maravilla DO Attending Provider Active S tart: June 25, 2025 End: June 25, 2025 Bounty Hunter Relationship Specialty Start Date End Date Vj Gray, LOCK AND DAM EQUIPMENT REPAIRER-CORPORATE STRATEGIST [address] [place] [address] PCP - General Nurse Practitioner 05/30/25 Bounty Hunter Relationship Specialty Start Date End Date Vj Gray, L[employer] AND DAM EQUIPMENT REPAIRER-CORPORATE STRATEGIST [address] [place] [address] PCP - General Nurse Practitioner 05/30/25 Bounty Hunter Relationship Specialty Start Date End Date Vj Gray, LOCK AND DAM EQUIPMENT REPAIRER-CORPORATE STRATEGIST [address] [place] [address] PCP - General Nurse Practitioner 05/30/25 Bounty Hunter Relationship Specialty Start Date End Date Unallocated, Andrea Javed MD [address] [place] [address] PCP - General Family Medicine 06/06/25 Bounty Hunter Relationship Specialty Start Date End Date Unallocated, Andrea Javed MD [address] [place] [address] PCP - General Family Medicine 06/06/25 Bounty Hunter Relationship Specialty Start Date End Date Unallocated, Andrea Javed MD [address] [place], [place] [address] [address] PCP - General Family Medicine 06/06/25 Bounty Hunter Relationship Specialty Start Date End Date Vj Gray, LOCK AND DAM EQUIPMENT REPAIRER-CORPORATE STRATEGIST [address] [place] [address] PCP - General Nurse Practitioner 05/30/25 Bounty Hunter Relationship Specialty Start Date End Date Vj Gray, LOCK AND DAM EQUIPMENT REPAIRER-CORPORATE STRATEGIST [address] [place] [address] PCP - General Nurse Practitioner 05/30/25 Bounty Hunter Relationship Specialty Start Date End Date Vj Gray, LOCK AND DAM EQUIPMENT [facility] [address] [place] [address] PCP - General Nurse Practitioner 05/30/25 Bounty Hunter Relationship Specialty Start Date End Date Vj Gray, [facility] [address] [place] [address] PCP - General Nurse Practitioner 05/30/25 Bounty Hunter Relationship Specialty Start Date End Date Vj Gray, [facility] [address] [place] [address] PCP - General Nurse Practitioner 05/30/25 Ordered Prescriptions (unrec ognized section and content) [...] 08 (Given - Provider: Jacqueline Medina, RN) 0846 (Given - Provider: Stefanie Lu, GABBY) atorvastatin (LIPITOR) tablet 80 mg 80 mg, Oral, NIGHTLY, First dose on Wed12/07/22 at 2100, Until Discontinued 2024 (Given - Provider: Tamika Villavicencio, GABBY) 1956 (Given - Provider: Libia Lyons, GABBY) 2100 (Due) clopidogrel (PLAVIX) tablet 75 mg 75 mg, Oral, DAILY, First dose on Wed12/08/22 at 0900, Until Discontinued 925 (Given - Provider: Jacqueline Medina RN) 08 (Given - Provider: Jacqueline Medina, GABBY) 0846 (Given - Provider: Stefanie Lu, RN) insulin glargine (LANTUS) injection vial 10 [...] 10 Minutes, PRN, blood administration, Starting on Tu12/08/22 at 0614, For 1 dose, For use [...] pneumonia 1156 (Given - Provider: Migue Douglas RN)213 (Given - Provider: Ely Riddle RN) 09 (Given - Provider: Migue Douglas RN) ferrous sulfate tablet 325 mg 325 mg, oral, Daily with breakfast, First dose on Wed05/14/25 at 1330, Give ferrous sulfate 2 hours before or 4 hours after antacids. 1527 (Given - Provider: Migue Douglas RN) 09 (Given - Provider: Migue Douglas RN) furosemide [...] for use. 2131 (Given - Provider: Ely Riddle RN) heparin (porcine) injection 5,000 Units 5,000 [...] RN)2133 (Given - Provider: Ely Riddle RN) 0524 (Given - Provider: Ely Riddle RN)1436 (Given - Provider: Migue Douglas RN) insulin [...] minutes before or immediately after a meal. 2214 (Given - Provider: Genoveva Medley RN) 2134 (Given - Provider: Ely Riddle RN) insulin regular (HumuLIN R,NovoLIN R) injection 10 Units (COMPLETED) 10 Units, subcutaneous, Once, On Wed05/13/25 at 1505, For 1 dose, Look-alike/sound-alike medication [...] 0145 0158 (Given - Provider: Genoveva Medley RN)2133 (Given - Provider: Ely Riddle RN) piperacillin-tazobactam [...] Becerra RN)1857 (Paused - Provider: Migue Douglas RN)1899 (Restarted - Provider: Migue Douglas RN)1904 (Paused - Provider: Migue Douglas RN)1909 (Restarted - Provider: Migue Douglas RN)1952 (Paused - Provider: Migue Douglas RN)1954 (Restarted - Provider: Migue Douglas RN)2000 (Paused - Provider: Migue Douglas RN)2009 (Restarted - Provider: Migue Douglas RN)2024 (Stop Bag - Provider: Migue Douglas RN)213 (Stop Bag - Provider: Genoveva Medley RN) [...] (COMPLETED) 1,710 mL (30 mL/kg 57 kg [place] weight), intravenous, at 1,682 mL/hr, Administer over [...] Provider: Genoveva Medley RN)2133 (Given - Provider: Ely Riddle RN) vancomycin (VANCOCIN) 1,750 mg in sodium chloride [...] RN)1835 (Rate/Dose Verify - Provider: Cristóbal Becerra RN)2030 (Paused - Provider: Migue Douglas RN)2034 (Restarted - Provider: Migue Douglas RN)2041 (Stop Bag - Provider: Migue Douglas RN)2043 (Stop Bag - Provider: Genoveva Medley RN - Comment: loss of IV access)2146 (New Bag - Provider: Genoveva Medley RN) [...] Temperature greater than 38.3 C, Starting on Wed05/13/25 at 1445, Scheduling/ADT, [Warning: Total Acetaminophen not [...] glucose less than 70 mg/dL, Starting on Wed05/13/25 at 1445, Scheduling/ADT, If patient conscious and taking PO. If blood glucose is not greater than 70 mg/dL after initial treatment, repeat treatment. dextrose 5 % (D5W) infusion 100 mL/hr, intravenous, Continuous PRN, blood glucose less than 70 mg/dL, Starting on Wed05/13/25 at 1445, Scheduling/ADT, Use immediately following dextrose [...] or NPO with IV access, Starting on Wed05/13/25 at 1445, Scheduling/ADT, Push over 1-3 minutes [...] or NPO without IV access., Starting on Wed05/13/25 at 1445, Scheduling/ADT, If conscious and not [...] needed. 1224 (New Bag - Provider: Migue Douglas RN)1424 (Stop Bag - Provider: Migue Douglas RN) magnesium sulfate IVPB 4000 mg/100 mL in [...] Give with a full glass of water. Scheduled Medication Order 07/03/2025 07/04/2025 07/05/2025 busPIRone (BUSPAR) tablet 5 mg 5 mg, oral, 3 times daily, First dose on Wed07/04/25 at 1400, Hold for sedation Look-alike/sound-alike medication - verify indication for use. Avoid grapefruit juice. 1312 (Given - Provider: Cesilia Hand RN)2038 (Given - Provider: Kristy Galarza, RN) 0551 (Given - Provider: Kristy Galarza, RN)1418 (Given - Provider: Tanya Rodriguez, RN) cefTRIAXone (ROCEPHIN) 1,000 mg in sodium chloride 0.9 % 50 mL IVPB W/ADAPTER (CANCELED) 1,000 mg, intravenous, at 100 mL/hr, Administer over 30 Minutes, Every 24 hours, First dose on Wed07/02/25 at 1815, For Vial-2-Bag: Attach bag and vial to adapter - Use immediately after activating; dissolve drug prior to administration., Indication: UTI 1809 (New Bag - Provider: Cesilia Hand RN)1839 (Stop Bag - Provider: Kristy Galarza, GABBY) cyanocobalamin tablet 1,000 mcg 1,000 mcg, oral, Daily, First dose on Wed07/02/25 at 1815 0852 (Given - Provider: Cesilia Hand RN) 0930 (Given - Provider: Cesilia Hand RN) 0904 (Given - Provider: Tanya Rodriguez, RN) enoxaparin (LOVENOX) syringe 40 mg 40 mg, subcutaneous, Daily, First dose on Wed07/03/25 at 0600, When Creatinine Clearance 30 mL/min or greater Look-alike/sound-alike medication - verify indication for use. 0600 (Given - Provider: Kristy Galarza RN) 0520 (Given - Provider: Kristy Galarza, RN) 0551 (Given - Provider: Kristy Galarza RN) ferrous sulfate tablet 325 mg 325 mg, oral, 2 times daily with meals, First dose (after last modification) on Wed07/03/25 at 0800, Give ferrous sulfate 2 hours before or 4 hours after antacids. 0852 (Given - Provider: Cesilia Hand RN)1758 (Given - Provider: Cesilia Hand RN) 0930 (Given - Provider: Cesilia Hand RN)1659 (Given - Provider: Amy Simms RN) 0904 (Given - Provider: Tanya Rodriguez, RN)1700 (Not Given - Provider: Tanya Rodriguez RN - Reason: Patient/family refused) insulin glargine (LANTUS, SEMGLEE) injection pen 10 Units 10 Units, subcutaneous, Nightly, First dose on Wed07/03/25 at 2200, Only hold for blood sugar less than 40 regardless of dietary status. Call MD if held. Do NOT mix with other insulins. Notify prescriber if blood glucose greater than 400 mg/dL. Look-alike/sound-alike medication - verify indication for use. Prime with 2 units of insulin prior to administration. Basal (long acting) insulin for subcutaneous administration only. Do not mix with any other insulin. Pre-filled pens stable 28 days at room temperature. 2019 (Given - Provider: Kristy Galarza RN) 2037 (Given - Provider: Kristy Galarza RN) insulin lispro (HumaLOG) injection 1-4 Units 1-4 Units, subcutaneous, Nightly, First dose on Wed07/02/25 at 2200, Bedtime hyperglycemia dosing. For blood glucose 201-250 mg/dL, give 1 unit. For blood glucose 251-300 mg/dL, give 2 units. For blood glucose 301-350 mg/dL, give 3 units. For blood glucose 351-400 mg/dL, give 4 units. Give even if NPO or meals skipped. Do NOT give more often than every 4 hours when NPO. Look-alike/sound-alike medication - verify indication for use. Prime with 2 units of insulin prior to administration. Prandial/supplemental Insulin. Pre-filled pens stable 28 days at room temperature. Insulin lispro should be administered within 15 minutes before or immediately after a meal. 2023 (Not Given - Provider: Kristy Galarza RN - Reason: Order parameters not met) 2100 (Not Given - Provider: Kristy Galarza RN - Reason: Order parameters not met) insulin lispro (HumaLOG) injection 2-10 Units 2-10 Units, subcutaneous, 3 times daily with meals, First dose on Wed07/02/25 at 1815, Daytime hyperglycemia dosing. For blood glucose 151-200 mg/dL, give 2 units. For blood glucose 201-250 mg/dL, give 4 units. For blood glucose 251-300 mg/dL, give 6 units. For blood glucose 301-350 mg/dL, give 8 units. For blood glucose 351-400 mg/dL, give 10 units. Give even if NPO or meals skipped. Do NOT give more often then every 4 hours when NPO. Look-alike/sound-alike medication - verify indication for use. Prime with 2 units of insulin prior to administration. Prandial/supplemental Insulin. Pre-filled pens stable 28 days at room temperature. Insulin lispro should be administered within 15 minutes before or immediately after a meal. 0800 (Not Given - Provider: Cesilia Hand RN - Reason: Order parameters not met)1152 (Given - Provider: Cesilia Hand RN)1700 (Not Given - Provider: Cesilia Hand RN - Reason: Order parameters not met) 0800 (Not Given - Provider: Cesilia Hand RN - Reason: Order parameters not met)1251 (Given - Provider: Cesilia Hand RN)1649 (Given - Provider: Amy Simms RN) 0800 (Not Given - Provider: Tanya Rodriguez RN - Reason: Order parameters not met)1225 (Given - Provider: Tanya Rodriguez, RN)1751 (Given - Provider: Tanya Rodriguez, RN) magnesium oxide (MAGOX) tablet 400 mg 400 mg, oral, Daily, First dose on Wed07/02/25 at 1815 0852 (Given - Provider: Cesilia Hand RN) 0930 (Given - Provider: Cesilia Hand RN) 0904 (Given - Provider: Tanya Rodriguez, RN) polyethylene glycol (GLYCOLAX) packet 17 g 17 g, oral, Daily, First dose on Wed07/03/25 at 0900, Look-alike/sound-alike medication - verify indication for use. Dissolve 1 packet (17 gm) in 8 ounces of water, juice, soda, coffee or tea. 1152 (Given - Provider: Cesilia Hand RN) 0931 (Given - Provider: Cesilia Hand RN) 0905 (Not Given - Provider: Tanya Rodriguez RN - Reason: Patient/family refused) sertraline (ZOLOFT) tablet 100 mg 100 mg, oral, Daily, First dose on Wed07/02/25 at 1815, Look-alike/sound-alike medication - verify indication for use. 0852 (Given - Provider: Cesilia Hand RN) 0930 (Given - Provider: Cesilia Hand RN) 0904 (Given - Provider: Tanya Rodriguez RN) sodium chloride 0.9 % flush 3 mL 3 mL, intravenous, Every 12 hours scheduled, First dose on Wed07/02/25 at 2100 0853 (Given - Provider: Cesilia Hand RN)2100 (Not Given - Provider: Kristy Galarza RN - Reason: IV infusing) 0931 (Given - Provider: Cesilia Hand RN)2100 (Not Given - Provider: Kristy Galarza RN - Reason: IV infusing) 0900 (Not Given - Provider: Tanya Rodriguez RN - Reason: Loss of IV access) traZODone (DESYREL) tablet 100 mg 100 mg, oral, Nightly, First dose on Wed07/02/25 at 2200, Look-alike/sound-alike medication - verify indication for use. 2019 (Given - Provider: Kristy Galarza RN) 2037 (Given - Provider: Kristy Galarza RN) Continuous Medication Order 07/03/2025 07/04/2025 07/05/2025 sodium chloride 0.9 % infusion () 50 mL/hr, intravenous, Continuous, Starting on Wed07/02/25 at 1815, For 1 day 1758 (New Bag - Provider: Cesilia Hand RN - Comment: [Order ends at this time. Document the following action when infusion is complete: Stop Bag])2046 (Stop Bag - Provider: Kristy Galarza RN - Comment: [Order ends at this time. Document the following action when infusion is complete: Stop Bag]) PRN Medication Order 07/03/2025 07/04/2025 07/05/2025 acetaminophen (TYLENOL) tablet 650 mg 650 mg, oral, Every 4 hours PRN, mild pain - pain scale 1-3, headaches, Temperature greater than 38.3 C, Starting on Wed07/02/25 at 1811, [Warning: Total Acetaminophen not to exceed more than 4 grams (4000 mg) in 24 hours] alum-mag hydroxide-simeth (MAALOX) 200-200-20 mg/5 mL suspension 30 mL 30 mL, oral, 4 times daily after meals and at bedtime as needed, dyspepsia, Starting on Wed07/02/25 at 181, Look-alike/sound-alike medication - verify indication for use. Shake well., Indications: dyspepsia calcium gluconate 2,000 mg in sodium chloride 0.9 % 100 mL IVPB 2,000 mg, intravenous, at 60 mL/hr, Administer over 2 Hours, As needed, ionized calcium 4 to 4.3 mg/dL, Starting on Wed07/02/25 at 1811, IV Administration of calcium via a central or deep vein preferred. Avoid administration in small hand veins VESICANT (RED) calcium gluconate 3,000 mg in sodium chloride 0.9 % 100 mL IVPB 3,000 mg, intravenous, at 43.3 mL/hr, Administer over 3 Hours, As needed, ionized calcium 3.5 to 3.9 mg/dL, Starting on Wed07/02/25 at 1811, IV Administration of calcium via a central or deep vein preferred. Avoid administration in small hand veins VESICANT (RED) calcium gluconate 4,000 mg in sodium chloride 0.9 % 250 mL IVPB 4,000 mg, intravenous, at 72.5 mL/hr, Administer over 4 Hours, As needed, ionized calcium 3.4 mg/dL or less, Starting on Wed07/02/25 at 1811, IV administration of calcium via a central or deep vein is preferred. Avoid administration in small hand veins. VESICANT (RED) dextrose (GLUTOSE) 40 % gel 15 g 15 g, oral, As needed, low blood sugar, blood glucose less than 70 mg/dL, Starting on Wed07/02/25 at 1811, If patient conscious and taking PO. If blood glucose is not greater than 70 mg/dL after initial treatment, repeat treatment. dextrose 5 % (D5W) infusion 100 mL/hr, intravenous, Continuous PRN, blood glucose less than 70 mg/dL, Starting on Wed07/02/25 at 1811, For 365 days, Use immediately following dextrose 50% or glucagon [...] or NPO with IV access, Starting on Wed07/02/25 at 1811, Push over 1-3 minutes STAT. If conscious [...] or NPO without IV access., Starting on Wed07/02/25 at 1811, If conscious and not NPO, immediately follow [...] level 0.45 to 0.5 mmol/L., Starting on Wed07/02/25 at 1811, Recheck magnesium level 4 hours after infusion complete. With each magnesium result continue the replacement orders as needed. magnesium sulfate IVPB 4000 mg/100 mL in iso-osmotic water (40 mg/mL premix) 4,000 mg, intravenous, at 25 mL/hr, Administer over 240 Minutes, As needed, Magnesium level 1.6 mg/dL or less, or Ionized Magnesium level 0.44 mmol/L or less, Starting on Wed07/02/25 at 1811, Recheck magnesium level 4 hours after infusion complete. With each magnesium result continue the replacement orders as needed. ondansetron (PF) (ZOFRAN) injection 4 mg 4 mg, intravenous, Every 4 hours PRN, nausea, vomiting, Starting on Wed07/02/25 at 1811, Intravenous administration preferred to be given over 2-5 minutes. 1310 (Given - Provider: Cesilia Hand RN) potassium chloride (K-TAB,KLOR-CON) CR tablet 30-50 mEq(Linked Group 1) 30-50 mEq, oral, As needed, Potassium Supplementation, Starting on Wed07/04/25 at 1136, Progress to oral potassium replacement when patient [...] oral, As needed, Potassium Supplementation, Starting on Wed07/04/25 at 1136, Progress to oral potassium replacement when patient [...] Minutes, As needed, POTASSIUM REPLACEMENT, Starting on Wed07/04/25 at 1136, IV if unable to use oral/enteral with [...] mEq over a minimum of 1 hour. promethazine (PHENERGAN) suppository 12.5 mg(Linked Group 2) 12.5 mg, rectal, Every 6 hours PRN, nausea, vomiting, Starting on Wed07/02/25 at 1808, Do not use for ages less than 2 years old. Refrigerate. promethazine (PHENERGAN) tablet 12.5 mg(Linked Group 2) 12.5 mg, oral, Every 6 hours PRN, nausea, vomiting, Starting on Wed07/02/25 at 1808 sennosides-docusate sodium (SENOKOT-S) 8.6-50 mg 1 tablet 1 tablet, oral, Every 12 hours PRN, constipation, Starting on Wed07/02/25 at 1811 sod phos di, mono-K phos mono (K-PHOS NEUTRAL) 250 mg tablet 2 tablet(Linked Group 3) 2 tablet, oral, As needed, for phosphorus level 2.3 mg/dL or less., Starting on Wed07/02/25 at 1811, If dose administered, recheck phosphorus level 4 hours after last dose. Look-alike/sound-alike medication - verify indication for use. Give with a full glass of water. sodium chloride 0.9 % flush 3 mL 3 mL, intravenous, As needed, line care, before and after each intermittent use, Starting on Wed07/02/25 at 1811 sodium chloride 0.9 % flush bag 25 mL, intravenous, at 100 mL/hr, Administer over 15 Minutes, As needed, line care, line care after IVPB administration, Starting on Wed07/02/25 at 1811 sodium chloride 0.9 % infusion 20 mL/hr, intravenous, Continuous PRN, to maintain patency of lines, Starting on Wed07/02/25 at 1811 sodium phosphate 20 mmol in sodium chloride 0.9 % 100 mL IVPB(Linked Group 3) 20 mmol, intravenous, at 26.7 mL/hr, Administer over 4 Hours, As needed, for phosphorus level 2.3 mg/dL or less., Starting on Wed07/02/25 at 1811, Administer over 4 hours via dedicated line (central line). If administered, recheck phosphorus level 4 hours after infusion complete. Infuse using central line access. sodium phosphate 20 mmol in sodium chloride 0.9 % 250 mL IVPB(Linked Group 3) 20 mmol, intravenous, at 42.8 mL/hr, Administer over 6 Hours, As needed, for phosphorus level 2.3 mg/dL or less, Starting on Wed07/02/25 at 181, Administer over 6 hours via dedicated line (peripheral line). If administered, recheck phosphorus level 4 hours after infusion complete. Linked Groups Order Group 1: potassium chloride (K-TAB,KLOR-CON) CR tablet 30-50 mEqJump to med 30-50 mEq, oral, As needed, Potassium Supplementation, Starting on Wed07/04/25 at 1136, Progress to oral potassium replacement when patient [...] oral, As needed, Potassium Supplementation, Starting on Wed07/04/25 at 1136, Progress to oral potassium replacement when patient [...] Minutes, As needed, POTASSIUM REPLACEMENT, Starting on Wed07/04/25 at 1136, IV if unable to use oral/enteral with [...] over a minimum of 1 hour. Group 2: promethazine (PHENERGAN) tablet 12.5 mgJump to med 12.5 mg, oral, Every 6 hours PRN, nausea, vomiting, Starting on Wed07/02/25 at 1808 Or promethazine (PHENERGAN) suppository 12.5 mgJump to med 12.5 mg, rectal, Every 6 hours PRN, nausea, vomiting, Starting on Wed07/02/25 at 1808, Do not use for ages less than 2 years old. Refrigerate. Group 3: sodium phosphate 20 mmol in sodium chloride 0.9 % 250 mL IVPBJump to med 20 mmol, intravenous, at 42.8 mL/hr, Administer over 6 Hours, As needed, for phosphorus level 2.3 mg/dL or less, Starting on Wed07/02/25 at 1811, Administer over 6 hours via dedicated line (peripheral line). If administered, recheck phosphorus level 4 hours after infusion complete. Or sodium phosphate 20 mmol in sodium chloride 0.9 % 100 mL IVPBJump to med 20 mmol, intravenous, at 26.7 mL/hr, Administer over 4 Hours, As needed, for phosphorus level 2.3 mg/dL or less., Starting on Wed07/02/25 at 1811, Administer over 4 hours via dedicated line (central line). If administered, recheck phosphorus level 4 hours after infusion complete. Infuse using central line access. Or sod phos di, mono-K phos mono (K-PHOS NEUTRAL) 250 mg tablet 2 tabletJump to med 2 tablet, oral, As needed, for phosphorus level 2.3 mg/dL or less., Starting on Wed07/02/25 at 181, If dose administered, recheck phosphorus level 4 [...] BE BASED ON THE PRIMARY CLINICAL RECORDS. [employer] provides no warranty or guarantee of the accuracy or completeness of information in this document.
== END 2025-06-27 09:17 | disposition home health service (06) ==
LOC: ER 15:18 → MS 06-27 09:03
PROVIDERS: Admitting Provider Internal Medicine; Emergency Provider Emergency Medicine; PCP Nurse Practitioner; Visit Provider Internal Medicine
DX: N39.0 Urinary tract infection, site not specified (principal); G92.8 Other toxic encephalopathy; G93.49 Other encephalopathy; N17.9 Acute kidney failure, unspecified; C79.51 Secondary malignant neoplasm of bone; E86.0 Dehydration; N18.30 Chronic kidney disease, stage 3 unspecified; B95.2 Enterococcus as the cause of diseases classified elsewhere; B96.89 Other specified bacterial agents as the cause of diseases classified elsewhere; Z91.148 Patient's other noncompliance with medication regimen for other reason; I35.0 Nonrheumatic aortic (valve) stenosis; J45.909 Unspecified asthma, uncomplicated; D63.1 Anemia in chronic kidney disease; T42.6X5A Adverse effect of other antiepileptic and sedative-hypnotic drugs, initial encounter; T43.215A Adverse effect of selective serotonin and norepinephrine reuptake inhibitors, initial encounter; T43.025A Adverse effect of tetracyclic antidepressants, initial encounter; G47.33 Obstructive sleep apnea (adult) (pediatric); I25.10 Atherosclerotic heart disease of native coronary artery without angina pectoris; E11.51 Type 2 diabetes mellitus with diabetic peripheral angiopathy without gangrene; E11.22 Type 2 diabetes mellitus with diabetic chronic kidney disease; I12.9 Hypertensive chronic kidney disease with stage 1 through stage 4 chronic kidney disease, or unspecified chronic kidney disease; Z79.82 Long term (current) use of aspirin; Z79.02 Long term (current) use of antithrombotics/antiplatelets; Z79.811 Long term (current) use of aromatase inhibitors; Z79.4 Long term (current) use of insulin; Z79.899 Other long term (current) drug therapy; Z85.3 Personal history of malignant neoplasm of breast; Z98.2 Presence of cerebrospinal fluid drainage device; Z86.73 Personal history of transient ischemic attack (TIA), and cerebral infarction without residual deficits; Z95.5 Presence of coronary angioplasty implant and graft; Z95.3 Presence of xenogenic heart valve; Z90.10 Acquired absence of unspecified breast and nipple; Z82.49 Family history of ischemic heart disease and other diseases of the circulatory system; D63.0 Anemia in neoplastic disease
CPT/HCPCS: 36415; 70450; 71045; 73502; 73552; 80048; 80053; 80320; 81001; 82330; 82397; 82607; 82728; 82746; 82948; 83521; 83540; 83550; 83605; 83735; 83970; 84100; 84155; 84165; 85025; 87040; 87086; 87088; 87186; 93005; 94761; 94762; 96365; 96366; 96372; 97161; 97165; 97530; 99284; 99285; G0378; J0696; J1650

== ENCOUNTER 2025-06-30 13:37 | Emergency (ER) | payer MEDICARE, MEDICAID, SELFPAY ==
[2025-06-30] VITALS (18 sets, daily range): BP systolic 117–143; BP diastolic 66–78; PULSE 80–120; TEMP 36.9; O2SAT 87–98; BMI 31.5
--- OUTSIDE RECORDS SUMMARY | 2025-06-30 13:45 | XMS_ITS | CCD ---
Author Organization [facility] Care Team Providers Care Supervisor Dairy Sanitation Name Role Phone Michael Sanchez Primary Care Provider UnavailLAKESHIA Kramer Referring Unavailable MICHAEL SANCHEZ Primary Care Unavailable ELIZABETH TOMLINSON Referring Unavailable MICHAEL SANCHEZ Primary Care Unavailable PAM LEY Primary Care Unavailable ASHLEE, DR PADILLA Attending Unavailable ASHLEE, DR PADILLA Consulting Unavailable DOVY, DR PADILLA Admitting Unavailable COREY, DR GIOVANNY Tuttle Consulting Unavailable [place] Admitting Unavailable Jorge Bowserison Attending Unavailable GIOVANNY LOGAN Referring Unavailable GIOVANNY LOGAN Primary Care Unavailable Michael Sanchez Primary Care Provider Unavaildeshawn Ley APRN - BARTOLO, Pam De La Rosa Primary Care [facility] ider JEREMIAH, AMEER Referring Unavailable MICHAEL SANCHEZ Primary Care Unavailable JEREMIAH, AMEER Admitting Unavailable JEREMIAH, AMAFSHINR Attending Unavailable PHUONG BLAIR Referring Unavailable PAM LEY Primary Care Unavailable PHUONG BLAIR Referring Unavailable PAM LEY Primary Care Unavailable JEREMIAH, AMEER Attending Unavailable JEREMIAH, AMEER Referring Unavailable MICHAEL SANCHEZ Primary Care Unavailable JEREMIAH, AMEER Attending Unavailable JREEMIAH, AMEER Referring Unavailable MICHAEL SANCHEZ Primary Care Unavailable NOLAN JHA Referring Unavailable MICHAEL SANCHEZ Primary Care Unavailable JEREMIAH, AMEER Referring Unavailable MICHAEL SANCHEZ Primary Care Unavailable JEREMIAH, AMEER Admitting Unavailable JEREMIAH, AMEER Attending Unavailable NING CALDERA Consulting Unavailable MICHAEL SANCHEZ Primary Care Unavailable CHARMAINE BLAND Consulting Unavailable MARITZA MIDDLETON Attending Unavailable MARITZA MIDDLETON Admitting Unavailable Av JENKINS-Pam MCFARLAND Primary Care [facility] er 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, 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 Primary Care Provid er 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, Pam J Primary Care Provid er Bhavik La MD, Kendall Unavailable UnavailSarai Allred Attending Unavailable Al Shdeondre, Kendall Attending Unavailable Al Bessie, Kendall Referring Unavailable Al Bessie, Kendall Attending Unavailable 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, Pam Estrella Primary Care Provid er Bhavik La MD, Kendall Unavailable Unavailabl e 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, Pam J Primary Care Provid er 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, Pam J Primary Care Provid er MARYCARMEN AZAR Admitting Unavailab NAYANA Aragon Referring Unavailable LEYDEJA NAMERIE Estrella Primary Care Unavailable [facility] Consulting Unavailable MARIA GUADALUPE CAGLE Attending Unavailable CHRISTA HENRY Consulting Unavailable DELGADO BRYANT Consulting Unavailable CARDIOLOGY, [facility] Consulting Unavailable CHRISTINE RODRIGUEZ Referring Unavailable DEJA LEYERIE J Primary Care Unavailable NING HASSAN Referring Unavailable SBHAS, MICHAEL L Primary Care Unavailable MALGORZATAS, MICHAEL L Referring Unavailable YUHAS, MICHAEL L Primary Care Unavailable KENNETH LEIGH Referring Unavailable YUHAS, MICHAEL Carnes Primary Care Unavailable ANA TIDWELL Referring Unavailable YUHAS, MICHAEL L Primary Care Unavailable LEXX JHA Referring Unavailable LEYDEJAPAM J Primary Care Unavailable MALGORZATAS, MICHAEL L Referring Unavailable YUHAS, MICHAEL L Primary Care Unavailable Isaac 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, Vj Cohen Primary Care Provider Unallocated , Noms Provider Primary Care Provi michele PAM LEY Attending Unavailable DEJA LEYERIE J Referring Unavailable LEY, PAM J Primary Care Unavailable PAM LEY Attending Unavailable DEJA LEYERIE J Referring Unavailable LEY, PAM J Primary Care Unavailable PAM LEY Attending Unavailable DEJA LEYERIE J Referring Unavailable LEY, PAM J Primary Care Unavailable LEY, PAM J Attending Unavailable LEY, PAM J Referring Unavailable LEY, PAM J Primary Care Unavailable LEY, PAM J Attending Unavailable LEY, PAM J Referring Unavailable LEY, PAM J Primary Care Unavailable VJ GRAY Attending Unavailable MICHAEL JOINER Referring Unavailable VJ GRAY Primary Care Unavailable OVITT, VALE Referring Unavailable OVITT, VALE Referring Unavailable OVITT, VALE Referring Unavailable CLIFF VIVAR Attending Unavailable OVITT, VALE Attending Unavailable JOIE GOLDBERG Attending Unavailable JOIE GOLDBERG Referring Unavailable LEY, PAM J Primary Care Unavailable LYDIA ZUÑIGA Attending Unavailabl e YOGESH, LYDIA De La Rosa Attending Unavailabl e LYDIA ZUÑIGA Referring Unavailabl e LEY, PAM J Primary Care Unavailable MELY LARIOS Attending Unavailable LEY, PAM J Primary Care Unavailable CHRISTINE RODRIGUEZ U Admitting Unavailable LEY, PAM J Primary Care Unavailable GIOVANNY GUSTAFSON Attending Unavailable THANIA MARTINEZ Admitting Unavailable MARC RIVERO Referring Unavailable LEY, PAM J Primary Care Unavailable LEY, PAM J Primary Care Unavailable SUKHJINDER WILDE Attending Unavailable LEY, PAM J Primary Care Unavailable VERONA PORRAS Attending Unavailable LEY, PAM J Primary Care Unavailable HEATH NORRIS Attending Unavailable RODRIGUEZ, CHRISTINE U Admitting Unavailable BENEDICTO MCDOWELL Consulting Unavailable JOSÉ MIGUEL BARON Consulting Unavailable LEY, PAM J Primary Care Unavailable VENU DOWNS Attending Unavailable VENU DOWNS Admitting Unavailable LEY, PAM J Primary Care Unavailable SARAI CASAS Attending Unavailab le LEY, PAM J Primary Care Unavailable MARRY DOE Attending Unavailable RADHA TROY Attending Unavailable LEY, PAM J Referring Unavailable LEY, PAM J Primary Care Unavailable MEHNAZ MAJANO Referring Unavailable LEY, PAM J Primary Care Unavailable LEY, PAM J Primary Care Unavailable SASHA SPICER Attending Unavailable NING SEVERINO Attending Unavailable LEY, PAM J Primary Care Unavailable LEY, PAM J Primary Care Unavailable MELY LARIOS Attending Unavailable LIGIBEL, SEMBRIA L Referring Unavailable LEY, PAM J Primary Care Unavailable CASIMIRO MUÑOZ Attending Unavailable LEY, PAM J Referring Unavailable LEY, PAM J Primary Care Unavailable LIGIBEL, SEMBRIA L Referring Unavailable LEY, PAM J Primary Care Unavailable LIGIBEL, SEMBRIA L Referring Unavailable LEY, PAM J Primary Care Unavailable LEY, PAM J Primary Care Unavailable RODRIGUEZ, CHRISTINE U Admitting Unavailable RODRIGUEZ, CHRISTINE U Attending Unavailable CARDIOLOGY, [facility] Consulting Unavailable LEY, PAM J Referring Unavailable LEY, PAM J Primary Care Unavailable LEY, PAM J Referring Unavailable LEY, PAM J Primary Care Unavailable LEY, PAM J Primary Care Unavailable RODRIGUEZ, CHRISTINE U Admitting Unavailable ILDEFONSO BALLESTEROS Attending Unavailable SASHA SPICER Attending Unavailable SASHA SPICER Referring Unavailable LEY, PAM J Primary Care Unavailable LEY, PAM J Referring Unavailable LEY, PAM J Primary Care Unavailable LEY, PAM J Referring Unavailable LEY, PAM J Primary Care Unavailable LEY, PAM J Referring Unavailable LEY, PAM J Primary Care Unavailable LEY, PAM J Primary Care Unavailable MADISON HOLDER Attending Unavailable LEY, PAM J Referring Unavailable LEY, PAM J Primary Care Unavailable LEY, PAM J Referring Unavailable LEY, PAM J Primary Care Unavailable LEY, PAM J Referring Unavailable LEY, PAM J Primary Care Unavailable LEY, PAM J Referring Unavailable LEY, PAM J Primary Care Unavailable LEY, PAM J Referring Unavailable LEY, PAM J Primary Care Unavailable NING AHSSAN Attending Unavailable MICHAEL JOINER Primary Care Unavailable MICHAEL JOINER Primary Care Unavailable HEATH NORRIS Attending Unavailable MICHAEL JOINER Primary Care Unavailable KENNETH LEIGH Attending Unavailable MICHAEL JOINER Primary Care Unavailable ANA TIDWELL Attending Unavailable MICHAEL JOINER Primary Care Unavailable THANIA MARTINEZ Admitting Unavailable FELIX HALLMAN Attending Unavailable HANNAH CHRIS JR Consulting UnavailMICHAEL Fernandez Primary Care Unavailable GIOVANNY GUSTAFSON Attending Unavailable VJ GRAY Primary Care Unavailable SASHA SPICER Attending Unavailable VJ GRAY Primary Care Unavailable RADHA LEIGH Attending Unavailable VJ GRAY Primary Care Unavailable ILDEFONSO BALLESTEROS Admitting Unavailable ILDEFONSO BALLESTEROS Attending Unavailable Ra Maravilla DO Attending Provider Ra Maravilla Attending Unavailable Ra Maravilla Admitting Unavailable Allergies Allergy Classification Reported Allergen(s) Allergy Type Date of Onset Reaction(s) Facility (1 source) 12239,00 Drug allergy (disorder) 01-23-2020 [facility] Repository Medications Current Medications Medication Drug Class(es) Dates Sig (Normalized) Sig (Original) albuterol 0.83 mg/ml inhalation solution (9 sources) beta2-Adrenergic Agonist Start: 2024 take 3 [...] needed for wheezing. 75 mL 2024 Active amoxicillin 875 mg / clavulanate 125 [...] mg by mouth daily. 0 Active atorvastatin 10 mg oral tablet (20 sources) HMG-CoA Reductase Inhibitor Start: 02-23-2025 take 1 tablet by mouth at bedtime atorvastatin (Lipitor) 10 MG tablet Take 10 mg by mouth at bedtime 02/23/2025 Active Start: 11-10-2024 End: 11-28-2024 take 1 tablet by mouth once daily atorvastatin (LIPITOR) 40 mg tablet Indications: Mixed diabetic hyperlipidemia associated with type 2 diabetes mellitus ([facility]) Take 1 tablet (40 mg total) by mouth nightly. 90 tablet 1 11/28/2024 Suspended Start: 09-29-2022 take 1 tablet by wilson th in the morning atorvastatin (LIPITOR) 80 mg [...] days. 6 tablet 0 12/15/2023 12/19/2023 Active 4 ml bevacizumab 25 mg/ml injection (1 source) Vascular Endothelial Growth Factor Inhibitor Start: 02-12-2025 Avastin 25 mg/mL intravenous solution Direct Patient Administration Only - Active OU Comment on above: OU bisacodyl 5 mg delayed release oral tablet (1 source) Stimulant Laxative Start: 12-09-2022 bisacodyl ( DULCOLAX) EC tablet 10 mg blood-glucose meter misc (20 sources) Start: 10-11-2020 blood-glucose meter misc Indications: Controlled type 2 diabetes mellitus with diabetic nephropathy, without long-term current use of insulin ([facility] Monitor blood sugars four times daily and as needed 1 each 10/11/2020 Active Start: 10-11-2020 blood-glucose meter misc Indications: Controlled type 2 diabetes mellitus with diabetic nephropathy, without long-term current use of insulin ([facility]) Monitor blood sugars four times daily and as needed 1 each 0 10/11/2020 Active cefuroxime 250 mg oral tablet (4 sources) Cephalosporin Antibacterial take 1 tablet by mouth once daily cefuroxime (Ceftin) 250 MG tablet Take 250 mg by mouth Daily Active cephalexin 500 mg oral capsule (3 sources) Cephalosporin Antibacterial Start: End: take 1 capsule by mouth three times daily CEPHalexin (KEFLEX) 500 mg capsule Take 1 capsule (500 mg total) by mouth 3 (three) times a day for 7 days. 21 capsule 01/10/2025 01/17/2025 Active Start: 11-10-2024 End: 12-10-2024 take 1 capsule by mouth in the morning, then take 1 capsule by mouth at bedtime CEPHalexin (KEFLEX) 500 mg capsule Take 1 capsule (500 mg total) by mouth in the morning and 1 capsule (500 mg total) before bedtime. Do all this for 30 days. 60 capsule 11/10/2024 12/10/2024 Active Start: 02-09-2024 End: 02-19-2024 take 1 capsule by mouth in the morning, then take 1 capsule by mouth at bedtime CEPHalexin (KEFLEX) 250 mg capsule Indications: Acute cystitis without hematuria Take 1 capsule (250 mg total) by mouth in the morning and 1 capsule (250 mg total) before bedtime. Do all this for 10 days. 20 capsule 0 02/09/2024 02/19/2024 Active cholecalciferol 0.01 mg oral capsule (2 sources) Vitamin D ciprofloxacin 500 mg oral tablet (1 source) Quinolone Antimicrobial Start: End: take 0.5 tablet by mouth in the morning, then take 0.5 tablet by mouth at bedtime ciprofloxacin HCl (CIPRO) 500 mg tablet Take 0.5 tablets (250 mg total) by mouth in the morning and 0.5 tablets (250 mg total) before bedtime. Do all this for 7 days. 7 tablet 11/12/2024 11/19/2024 Active 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 (13 sources) Start: 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 USE DIRECTED TO CONTINUOUSLY MONITOR BLOOD SUGAR 07/05/2024 Active DEXCOM G7 SENSOR device (20 sources) Start: DEXCOM G7 SENSOR device CHANGE SENSOR EVERY 10 DAYS, E11.65 03/22/2024 Active doxycycline monohydrate 100 mg oral capsule (4 sources) Tetracycline-class Drug Start: End: take 1 capsule by mouth in the morning, then take 1 capsule by mouth at bedtime doxycycline (MONODOX) 100 mg capsule Take 1 capsule (100 mg total) by mouth in the morning and 1 capsule (100 mg total) before bedtime. Do all this for 5 days. 05/15/2025 05/20/2025 Active Start: 05-14-2025 End: 05-15-2025 take 100 mg by mouth twice daily 100 mg, oral, 2 times daily, First dose on Wed05/14/25 at 1115, For 5 days, Indication: Community-acquired pneumonia Start: 2024 End: 06-21-2024 take 1 capsule by mouth in the morning, then take 1 capsule by mouth at bedtime doxycycline (MONODOX) 100 mg capsule Take 1 capsule (100 mg total) by mouth in the morning and 1 capsule (100 mg total) before bedtime. Do all this for 5 days. 10 capsule 2024 06/21/2024 Discontinued (Therapy completed) ferrous sulfate 325 mg oral tablet (8 sources) Start: 05-14-2025 End: 05-15-2025 take 1 tablet by mouth once daily at breakfast ferrous sulfate 325 (65 FE) MG tablet Take 1 tablet (325 mg total) by mouth daily with breakfast. 05/16/2025 Active fluconazole 150 mg oral tablet (1 source) Azole Antifungal Start: 10-25-2024 End: 10-25-2024 take 1 tablet by mouth once fluconazole (DIFLUCAN) 150 mg tablet Take 1 tablet (150 mg total) by mouth once for 1 dose. 1 tablet 10/25/2024 10/25/2024 Active fluticasone / salmeterol (9 sources) Corticosteroid , beta2-Adrenerg ic Agonist Start: 2024 take 1 puff(s) by inhalation in the morning fluticasone propion-salmeteroL (ADVAIR) 100-50 mcg/dose DISKUS Inhale 1 puff in the morning and 1 puff before bedtime. 60 each 2024 Active furosemide 20 mg oral tablet (20 sources) Loop Diuretic Start: 01-10-2025 End: 05-15-2025 take 1 tablet by mouth in the morning furosemide (Lasix) 20 MG tablet Take 20 mg by mouth in the morning. 01/10/2025 Active hydroCHLOROthiazide 25 mg oral tablet (20 sources) Thiazide Diuretic take 1 tablet by mouth once daily hydroCHLOROthiazide (HYDRODiuril) 25 MG tablet Take 1 tablet by mouth Daily Active take 2 capsules by mouth once da vida hydrochlorothiazide 12.5 mg Cap take 2 capsule (25MG) by oral route every day 25 MG - Active 3 ml insulin aspart, human 100 unt/ml pen injector (20 sources) Insulin Analog Start: 12-29-2024 insulin aspart FlexPen (NovoLOG) 100 UNIT/ML pen Inject under the skin 3 (three) times a day with meals 12/29/2024 Active End: 05-15-2025 insulin aspart U-100 (NovoLO G) 100 unit/mL (3 mL) insulin pen 05/15/2025 Discontinued (Stop Taking at Discharge) Novolog 100 unit /mL Sub-Q inject by subcutaneous route as per insulin sliding scale protocol - Active insulin aspart ( NOVOLOG) 100 UNIT/ML injection pen Inject into the skin 3 times daily (before meals). Takes 3 to 4 times daily based on glucose / sliding scale used 0 Active 3 ml insulin detemir 100 unt/ml pen injector (20 sources) Insulin Analog Start: 08-24-2024 inject 15 [IU] by subcutaneous injection at bedtime insulin detemir (Levemir) 100 UNIT/ML pen Inject 15 Units under the skin at bedtime 08/24/2024 Active Start: 08-24-2024 inject 15 [IU] by wahl bcutaneous injection once daily insulin detemir U-100 (LEVEMIR) 100 unit/mL (3 mL) insulin pen Inject 15 Units under the skin nightly. 15 mL 12 08/24/2024 Active Start: 04-05-2024 insulin detemi r U-100 (LEVEMIR) 100 unit/mL (3 mL) insulin pen 30 units at bedtime 04/05/2024 Active Start: 08-31-2023 End: 03-02-2024 insulin detemir U-100 (LEVEM IR FLEXPEN) 100 unit/mL (3 mL) insulin pen Indications: Controlled type 2 diabetes mellitus with diabetic nephropathy, without long-term current use of insulin [place] INJECT 30 UNITS UNDER THE SKIN NIGHTLY 30 mL 3 08/31/2023 03/02/2024 Discontinued (Therapy completed) Levemir 100 unit /mL Sub-Q inject by subcutaneous route as per insulin sliding scale protocol - Active insulin detemir (LEVEMIR) 100 UNIT/ML injection pen Inject 40 Units into the skin nightly. 0 Active 3 ml insulin glargine 100 unt/ml pen injector (6 sources) Insulin Analog Start: 12-07-2024 insulin glargi ne (Lantus SoloStar) 100 UNIT/ML pen Inject under the skin 12/07/2024 Active Start: 12-11-2022 insulin glargi ne (LANTUS) injection vial 10 Units Start: 12-07-2022 End: 12-10-2022 insulin glargine (LANTUS) in jection vial 20 Units letrozole 2.5 mg oral tablet (20 sources) Aromatase Inhibitor Start: 01-25-2025 End: 01-20-2026 take 1 tablet by mouth once daily letrozole (Femara) 2.5 MG chemo tablet Take 2.5 mg by mouth Daily. 01/25/2025 01/20/2026 Active Start: 03-18-2023 End: 11-24-2024 take 1 tablet by mouth once daily letrozole (FEMARA) 2.5 mg chemo tablet Indications: 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 female breast, unspecified estrogen receptor status ([facility]) TAKE 1 TABLET BY MOUTH EVERY DAY 90 tablet 3 01/04/2024 Active lidocaine 0.04 mg/mg medicated patch (20 sources) Antiarrhythmic, Amide Local Anesthetic Start: 01-11-2025 apply 1 dose transdermal route once daily Lidocaine 4 % patch Place 1 patch on the skin 1 (one) time each day at the same time 01/11/2025 Active lisinopril 5 mg oral tablet (11 sources) Angiotensin Converting Enzyme Inhibitor take 1 tablet by mouth once daily lisinopril 5 MG tablet Take 5 mg by mouth Daily Active metoprolol tartrate 25 mg oral tablet (20 sources) beta-Adrenergic Willi Start: 11-10-2024 take 0.5 tablet by mouth in the morning, then take 0.5 tablet by mouth at bedtime metoprolol tartrate (LOPRESSOR) 25 mg tablet Take 0.5 tablets (12.5 mg total) by mouth in the morning and 0.5 tablets (12.5 mg total) before bedtime. 60 tablet 11 11/10/2024 Active Start: 06-05-2024 take 1 tablet by wilson th once daily metoprolol succinate XL (TOPROL XL) 25 mg 24 hr tablet Indications: Essential hypertension Take 1 tablet (25 mg total) by mouth once daily. 90 tablet 2 06/05/2024 Active Start: 07-08-2023 End: 06-02-2024 take 1 tablet by mouth once daily metoprolol succinate XL (TOPROL XL) 25 mg 24 hr tablet Indications: Essential hypertension Take 1 tablet (25 mg total) by mouth once daily. 90 tablet 2 12/15/2023 Active take 1 tablet by wilson th in the morning metoprolol tartrate (Lopressor) 50 MG tablet Take 1 tablet by mouth in the morning and 1 tablet before bedtime. Active take 1 tablet by wilson th twice daily metoprolol tartrate 25 mg Tab take 1 tablet (25MG) by oral route 2 times every day 25 MG - Active take 1 tablet by wilson th twice daily metoprolol (LOPRESSOR) 50 MG tablet Take 50 mg by mouth 2 times daily. 0 Active mupirocin 0.02 mg/mg topical ointment (1 source) RNA Synthetase Inhibitor Antibacterial Start: 09-13-2024 mupirocin (BACTROBAN) 2 % ointment Apply 1 Application topically in the morning and 1 Application before bedtime. 30 g 09/13/2024 Active naproxen 500 mg oral tablet (2 sources) Nonsteroidal Anti-inflammatory Drug take 1 tablet by mouth twice daily at mealtime naproxen 500 mg Tab take 1 tablet (500MG) by oral route 2 times every day with food 500 MG - Active nystatin 100 unt/mg topical powder (20 sources) Polyene Antifungal Start: 09-06-2024 nystatin (Mycostatin) 178998 UNIT/GM powder Apply 1 Application topically in the morning and 1 Application at noon and 1 Application in the evening and 1 Application before bedtime. 09/06/2024 Active Start: 09-06-2024 nystatin (MYCO STATIN) powder Indications: Beverly infection of flexural skin Apply 1 Application topically in the morning and 1 Application at noon and 1 Application in the evening and 1 Application before bedtime. 60 g 1 09/06/2024 Active oxybutynin chloride 5 mg oral tablet (10 sources) Cholinergic Muscarinic Antagonist take 1 tablet by mouth once daily oxybutynin (Ditropan) 5 MG tablet Take 1 tablet by mouth Daily Active pravastatin sodium 40 mg oral tablet (2 sources) HMG-CoA Reductase Inhibitor take 1 tablet by mouth once daily pravastatin 40 mg Tab take 1 tablet (40MG) by oral route every day 40 MG - Active predniSONE 20 mg oral tablet (1 source) Start: 08-14-20 End: 08-17-20 24 take 2 tablets by mouth in the morning predniSONE (DELTASONE) 20 mg tablet Take 2 tablets (40 mg total) by mouth in the morning for 3 days. 6 tablet 08/14/2024 08/17/2024 Active traZODone hydrochloride 100 mg oral tablet (20 sources) Serotonin Reuptake Inhibitor Start: 09-28-20 End: 05-15-20 take 1 tablet by mouth at bedtime traZODone (Desyrel) 100 MG tablet Take 1 tablet by mouth at bedtime 03/02/2024 Active vitamin b12 1 mg oral tablet (18 sources) Vitamin B12 Start: 02-26-20 take 1 tablet by mouth in the morning cyanocobalamin 1000 MCG tablet Take 1 tablet (1,000 mcg total) by mouth in the morning. 02/25/2025 Active Completed/Discontinued Medications Medication Drug Class(es) Dates Sig (Normalized) Sig (Original) acetaminophen 325 mg oral tablet (20 sources) Start: 05-13-2025 End: 05-15-2025 take 1 tablet by mouth every four hours as needed for pain and fever and headache 650 mg, oral, Every 4 hours PRN, mild pain - pain scale 1-3, temperature greater than 38 C, headaches, Temperature greater than 38.3 C, Starting on 05/13/25 at 1445, Scheduling/ADT, [Warning: Total Acetaminophen not to exceed more than 4 grams (4000 mg) in 24 hours] Start: 12-07-2022 take 650 mg by mouth [...] 24 hours. Recovery(Cath) take 2 tablets by [facility] every six hours as needed acetaminophen (Tylenol) 500 MG tablet Take 1,000 mg by mouth every 6 (six) hours if needed Active amLODIPine 2.5 mg oral tablet (20 sources) Dihydropyridine Calcium Channel Willi Start: 11-11-2024 End: 11-24-2024 take 1 tablet by mouth in the morning amLODIPine (NORVASC) 2.5 mg tablet Take 1 tablet (2.5 mg total) by mouth in the morning. 30 tablet 11/11/2024 11/24/2024 Discontinued take 1 tablet by mouth once stacy y amLODIPine (Norvasc) 5 MG tablet Take 5 mg by mouth Daily Active blood-glucose sensor (DEXCOM G6 SENSOR) device (7 sources) End: 03-08-2024 blood-glucose sensor (DEXCOM G6 SENSOR) device by miscellaneous route. 03/08/2024 Discontinued (Therapy completed) blood-glucose se nsor (DEXCOM G6 SENSOR) device by miscellaneous route. 0 Active 100 ml calcium gluconate 20 mg/ml injection (1 source) Start: 05-14-2025 End: 05-15-2025 take 4-4.3 mg intravenously every hour as needed 2,000 mg, intravenous, at 50 mL/hr, Administer over 2 Hours, As needed, ionized calcium 4 to 4.3 mg/dL, Starting on Wed05/14/25 at 1011, IV Administration of calcium via a central or deep vein preferred. Avoid administration in small hand veins VESICANT (RED) calcium gluconate 3,000 mg in sodium chloride 0.9 % 100 mL IVPB (1 source) Start: 05-14-2025 End: 05-15-2025 take 3.5-3.9 mg intravenously every hour as needed 3,000 mg, intravenous, at 43.3 mL/hr, Administer over 3 Hours, As needed, ionized calcium 3.5 to 3.9 mg/dL, Starting on Wed05/14/25 at 1011, IV Administration of calcium via a central or deep vein preferred. Avoid administration in small hand veins VESICANT (RED) calcium gluconate 4,000 mg in sodium chloride 0.9 % 250 mL IVPB (1 source) Start: 05-14-2025 End: 05-15-2025 take 3.4 mg intravenously every hour as needed 4,000 mg, intravenous, at 72.5 mL/hr, Administer over 4 Hours, As needed, ionized calcium 3.4 mg/dL or less, Starting on Wed05/14/25 at 1011, IV administration of calcium via a central or deep vein is preferred. Avoid administration in small hand veins. VESICANT (RED) cefTRIAXone (ROCEPHIN) 1 g in lidocaine (XYLOCAINE) 10 mg/mL (1 %) IM injection (2 sources) Start: 02-09-2024 End: 02-09-2024 cefTRIAXone (ROCEPHIN) 1 g in lidocaine (XYLOCAINE) 10 mg/mL (1 %) IM injection clopidogrel 75 mg oral tablet (20 sources) P2Y12 Platelet Inhibitor Start: 09-29-2022 End: 11-24-2024 take 1 tablet by mouth in the morning clopidogreL (PLAVIX) 75 mg tablet Take 1 tablet (75 mg total) by mouth in the morning. 09/29/2022 11/24/2024 Discontinued cyclobenzaprine hydrochloride 10 mg oral tablet (3 sources) Muscle Relaxant Start: 01-11-2025 End: 01-22-2025 cyclobenzaprine (FLEXERIL) 10 mg tablet Take 1 tablet (10 mg total) by mouth 2 (two) times a day as needed for muscle spasms for up to 3 doses. 3 tablet 01/11/2025 01/22/2025 Discontinued (Duplicate Listing) DAPTOmycin (CUBICIN) 500 mg in sodium chloride 0.9 % 50 mL IVPB (9 sources) Start: 04-03-2025 End: 04-03-2025 500 mg, intravenous, at 120 mL/hr, Administer over 30 Minutes, Once, On Wed04/03/25 at 0800, For 1 dose, Pathogen: MRSA and unable to use vancomycin, Approved Indications: Bacteremia, Authorizing Service: ID consult has been placed Start: 03-30-2025 End: 03-30-2025 500 mg, intravenous, at 120 mL/hr, Administer over 30 Minutes, Once, On Wed03/30/25 at 0800, For 1 dose, Pathogen: MRSA and unable to use vancomycin, Approved Indications: Bacteremia, Authorizing Service: ID consult has been placed Start: 03-28-2025 End: 03-28-2025 500 mg, intravenous, at 120 mL/hr, Administer over 30 Minutes, Once, On Wed03/28/25 at 0815, For 1 dose, Pathogen: MRSA and unable to use vancomycin, Approved Indications: Bacteremia, Authorizing Service: ID consult has been placed Start: 03-26-2025 End: 03-26-2025 500 mg, intravenous, at 120 mL/hr, Administer over 30 Minutes, Once, On Wed03/26/25 at 0930, For 1 dose, Pathogen: MRSA and unable to use vancomycin, Approved Indications: Bacteremia, Authorizing Service: ID consult has been placed Start: 03-24-2025 End: 03-24-2025 500 mg, intravenous, at 120 mL/hr, Administer over 30 Minutes, Once, On 03/24/25 at 0800, For 1 dose, DOSE ADMINISTRATION TIME: 0800 on 03/24/2025, Pathogen: MRSA and unable to use vancomycin, Approved Indications: Bacteremia, Authorizing Service: ID consult has been placed Start: 03-22-2025 End: 03-22-2025 500 mg, intravenous, at 120 mL/hr, Administer over 30 Minutes, Once, On Wed03/22/25 at 0830, For 1 dose, Pathogen: MRSA and unable to use vancomycin, Approved Indications: Bacteremia, Authorizing Service: ID consult has been placed Start: 03-20-2025 End: 03-20-2025 500 mg, intravenous, at 120 mL/hr, Administer over 30 Minutes, Once, On Wed03/20/25 at 0815, For 1 dose, Pathogen: MRSA and unable to use vancomycin, Approved Indications: Bacteremia, Authorizing Service: ID consult has been placed Start: 03-14-2025 End: 03-14-2025 500 mg, intravenous, at 120 mL/hr, Administer over 30 Minutes, Once, On Wed03/14/25 at 0830, For 1 dose, Pathogen: MRSA and unable to use vancomycin, Approved Indications: Bacteremia, Authorizing Service: ID consult has been placed Start: 03-12-2025 End: 03-12-2025 500 mg, intravenous, at 120 mL/hr, Administer over 30 Minutes, Once, On Wed03/12/25 at 0800, For 1 dose, Pathogen: MRSA and unable to use vancomycin, Approved Indications: Bacteremia, Authorizing Service: ID consult has been placed DAPTOmycin in 0.9 % sod chlo r 500 mg/50 mL piggyback (15 sources) Start: 02-23-2025 End: 04-04-2025 DAPTOmycin in 0.9 % sod chlo r 500 mg/50 mL piggyback Infuse 500 mg into a venous catheter every other day for 40 days. 1 mL 02/23/2025 04/04/2025 Discontinued (Therapy completed) Start: 02-23-2025 End: 04-04-2025 DAPTOmycin in 0.9 % sod chlo r 500 mg/50 mL piggyback Infuse 500 mg into a venous catheter every other day for 40 days. 1 mL 02/23/2025 04/04/2025 Active DEXCOM G6 ANIMAL HEALTH TECHNICIAN misc (7 sources) Start: 05-06-2023 End: 03-08-2024 DEXCOM G6 ANIMAL HEALTH TECHNICIAN misc 1 De vice by drain unit route See Admin Instructions. 05/06/2023 03/08/2024 Discontinued (Therapy completed) Start: 05-06-2023 DEXCOM G6 RECE IVER misc 1 Device by drain unit route See Admin Instructions. 0 05/06/2023 Active dextromethorphan hydrobromide 1.5 mg/ml / pyrilamine maleate 1.5 mg/ml oral solution (4 sources) Uncompetitive Z-cumvps-U-aspartate Receptor Antagonist, Sigma-1 Agonist Start: 12-15-2023 End: 03-02-2024 take 5 mL by mouth every eight hours as needed for cough and congestion pyrilamine-dextromethorphan 7.5-7.5 mg/5 mL liquid Indications: Upper respiratory tract infection, unspecified type Take 5 mL by mouth every 8 (eight) hours as needed (cough and congestion). 100 mL 12/15/2023 03/02/2024 Discontinued (Therapy completed) docusate sodium 50 mg / sennosides, snf 8.6 mg oral tablet (1 source) Start: 05-13-2025 End: 05-15-2025 take 1 tablet by mouth every twelve hours as needed for constipatio n 1 tablet, oral, Every 12 hours PRN, constipation, Starting on 05/13/25 at 1445, Scheduling/ADT folic acid 1 mg oral tablet (16 sources) Start: 02-25-2025 End: 05-13-2025 take 1 tablet by mouth in the morning folic acid (FOLVITE) 1 mg tablet Take 1 tablet (1 mg total) by mouth in the morning. 02/25/2025 05/13/2025 Discontinued (Therapy completed) gabapentin 300 mg oral capsule (20 sources) Anti-epileptic Agent Start: 05-14-2025 End: 05-15-2025 take 600 mg by mouth once daily 600 mg, oral, Nightly, First dose on 05/14/25 at 2200, Look-alike/sound-alike medication - verify indication for use. Start: 03-05-2024 End: 05-15-2025 take 1 capsule by mouth in the morning gabapentin (Neurontin) 300 MG capsule Take 300 mg by mouth in the morning and 300 mg in the evening. 03/05/2024 Active Start: 08-10-2023 End: 01-18-2025 take 1 capsule by mouth in the morning, then take 1 capsule by mouth at bedtime gabapentin (NEURONTIN) 300 mg capsule Indications: 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) Take 1 capsule (300 mg total) by mouth in the morning and 1 capsule (300 mg total) before bedtime. 180 capsule 1 12/15/2023 01/18/2025 Discontinued (Reorder) take 2 capsules by m outh once daily gabapentin (NEURONTIN) 300 mg capsule Take 2 capsules (600 mg total) by mouth nightly. Active take 1 capsule by mo uth in the morning gabapentin (NEURONTIN) 100 MG capsule Take 100 mg by mouth in the morning and 100 mg in the evening. 0 Active glucagon (rdna) 1 mg injection (2 sources) Antihypoglycemic Agent Start: 05-13-2025 End: 05-15-2025 1 mg, intramuscular, As needed, low blood sugar, blood glucose less than 70 mg/dL and unconscious or NPO without IV access., Starting on 05/13/25 at 1445, Scheduling/ADT, If conscious and not NPO, immediately follow with meal tray or high protein (7Grams) snack if tray not available. If NPO, initiate IV 5% Dextrose/Water at 100 mL/hr and contact prescriber for additional orders. If blood glucose is not greater than 70 mg/dL after initial treatment, repeat treatment. Start: 12-10-2022 glucagon (rDNA ) injection 1 mg 150 ml glucose 50 mg/ml injection (8 sources) Start: 05-13-2025 End: 05-15-2025 15 g, oral, As needed, low b lood sugar, blood glucose less than 70 mg/dL, Starting on 05/13/25 at 1445, Scheduling/ADT, If patient conscious and taking PO. If blood glucose is not greater than 70 mg/dL after initial treatment, repeat treatment. Start: 05-13-2025 End: 05-15-2025 25 mL, intravenous, As neede d, low blood sugar, blood glucose less than 70 mg/dL and unconscious or NPO with IV access, Starting on 05/13/25 at 1445, Scheduling/ADT, Push over 1-3 minutes STAT. If conscious and not NPO, immediately follow with meal tray or high protein (7 grams) snack if tray not available. If NPO, initiate 5% dextrose in water at 100 mL/hr and contact prescriber for additional orders. If blood glucose is not greater than 70 mg/dL after initial treatment, repeat treatment. VESICANT (RED) Warning: HYPERTONIC solution. Start: 05-13-2025 End: 05-15-2025 take 70 mg intravenously every hour 100 mL/hr, intravenous, Continuous PRN, blood glucose less than 70 mg/dL, Starting on 05/13/25 at 1445, Scheduling/ADT, Use immediately following dextrose 50% or glucagon treatment for patients who are unconscious or NPO. Contact prescriber for additional orders. If blood glucose is not greater than 70 mg/dL after initial treatment, repeat treatment. Start: 03-23-2025 take 25 mL intraveno usly every hour as needed 25 mL/hr, intravenous, Continuous PRN, When mainline IV needed., Starting on Wed03/23/25 at 1412, Match IVF to base solution of product being administered to ensure compatibility. Start: 03-22-2025 take 25 mL intraveno usly every hour as needed 25 mL/hr, intravenous, Continuous PRN, When mainline IV needed., Starting on Wed03/22/25 at 0820, Match IVF to base solution of product being administered to ensure compatibility. Start: 12-10-2022 dextrose 10 % infusion Start: 12-10-2022 dextrose bolus 10% 125 mL Start: 12-10-2022 glucose chewab le tablet 16 g 12 hr guaiFENesin 600 mg extended release oral tablet (1 source) Start: 2024 End: 06-21-2024 take 1 tablet by mouth once guaiFENesin (MUCINEX) 600 mg tablet extended release 12hr Take 1 tablet (600 mg total) by mouth every 12 (twelve) hours. 10 tablet 2024 06/21/2024 Discontinued (Therapy completed) 1 ml heparin sodium, porcine 5000 unt/ml injection (1 source) Unfractionated Heparin, Anti-coagulant Start: 05-14-2025 End: 05-15-2025 5,000 Units, subcutaneous, Every 8 hours scheduled, First dose on 05/14/25 at 0600, Scheduling/ADT, Notify prescriber if INR greater than 1.9, hemoglobin less than 10 mg/dL, aPTT greater than 40 seconds, and/or platelet count less than 100,000/mm Look-alike/sound-a like medication - verify indication for use. Observe for bleeding. 3 ml insulin lispro 100 unt/ml pen injector (20 sources) Insulin Analog Start: 05-13-2025 End: 05-15-2025 inject 400 mg by subcutaneous injection once daily, then inject 2 [IU] by subcutaneous injection 15 minutes after mealtime 2-8 Units, subcutaneous, Nightly, First dose on Wed05/13/25 at 2200, Scheduling/ADT, Bedtime hyperglycemia dosing. For [...] if blood glucose greater than 400 mg/dL. Look-alike/sound-a like medication - verify indication for use. Prime with 2 units of insulin prior to administration. Prandial/supplemen norma Insulin. Pre-filled pens stable 28 days at room temperature. Insulin lispro should be administered within 15 minutes before or immediately after a meal. Start: 05-13-2025 End: 05-15-2025 inject 400 mg by subcutaneous injection three times daily at mealtime, then inject 2 [IU] by subcutaneous injection 15 minutes after mealtime 2-10 Units, subcutaneous, 3 times daily with meals, First dose on 05/13/25 at 1700, Scheduling/ADT, Daytime hyperglycemia dosing. For blood glucose [...] minutes before or immediately after a meal. Start: 02-24-2025 insulin lispro (HumaLOG) 100 unit/mL insulin pen Inject 2-10 Units under the skin 4 (four) times a day with meals and nightly. 151-200 mg/dL, give 2 units. 201-250 mg/dL, give 4 units. 251-300 mg/dL, give 6 units. 301-350 mg/dL, give 8 units 351-400 mg/dL, give 10 units 15 mL 12 02/24/2025 Active Start: 07-05-2024 End: 01-22-2025 insulin lispro (HumaLOG) 100 unit/mL insulin pen Inject 6 Units under the skin in the morning and 6 Units at noon and 6 Units in the evening. 07/05/2024 01/22/2025 Discontinued (Duplicate Listing) Start: 07-05-2024 insulin lispro (HumaLOG) 100 unit/mL insulin pen 08 units at each meals 07/05/2024 Active Start: 08-18-2023 End: 03-02-2024 inject 2 [IU] by subcutaneous injection four times daily at mealtime insulin lispro (HumaLOG KwikPen Insulin) 100 unit/mL insulin pen Indications: Mixed diabetic hyperlipidemia associated with type 2 diabetes mellitus ([facility]) Inject 2 Units under the skin 4 (four) times a day with meals and nightly. Patient states only takes 2 units if BG over 200 (does NOT take set dose of 36 units with meals) 08/18/2023 03/02/2024 Discontinued (Therapy completed) insulin, regular, human 100 unt/ml injectable solution (1 source) Insulin Start: 05-13-2025 End: 05-13-2025 10 Units, subcutaneous, Once , On 05/13/25 at 1505, For 1 dose, Look-alike/sound-alike medication - verify indication for use. Prandial/supplemental insulin. Stable for 28 days at room temperature. iopamidol (ISOVUE-370) 76 % injection 180 mL (1 source) Start: 01-13-2023 End: 01-13-2023 iopamidol (ISOVUE-370) 76 % injection 180 mL magnesium oxide 400 mg oral tablet (17 sources) Start: 02-24-2025 End: 05-15-2025 take 400 mg by mouth once daily 400 mg, oral, Daily, First dose on Wed05/14/25 at 1330 50 ml magnesium sulfate 40 mg/ml injection (2 sources) Start: 05-14-2025 End: 05-15-2025 2,000 mg, intravenous, at 25 mL/hr, Administer over 120 Minutes, As needed, Magnesium level 1.7 to 1.9 mg/dL, or Ionized Magnesium level 0.45 to 0.5 mmol/L., Starting on Wed05/14/25 at 1011, Recheck magnesium level 4 hours after infusion complete. With each magnesium result continue the replacement orders as needed. Start: 05-14-2025 End: 05-15-2025 4,000 mg, intravenous, at 25 mL/hr, Administer over 240 Minutes, As needed, Magnesium level 1.6 mg/dL or less, or Ionized Magnesium level 0.44 mmol/L or less, Starting on Wed05/14/25 at 1011, Recheck magnesium level 4 hours after infusion complete. With each magnesium result continue the replacement orders as needed. midodrine hydrochloride 5 mg oral tablet (16 sources) alpha-Adrenergic Agonist Start: 02-24-2025 End: 05-13-2025 take 1 tablet by mouth three times daily as needed midodrine (PROAMATINE) 5 mg tablet Take 1 tablet (5 mg total) by mouth 3 (three) times a day as needed (SBP less than 90). 02/24/2025 05/13/2025 Discontinued (Therapy completed) mirtazapine 15 mg oral tablet (20 sources) Start: 05-14-2025 End: 05-15-2025 take 7.5 mg by mouth once daily 7.5 mg, oral, Nightly, First dose on 05/14/25 at 0145 Start: 01-22-2025 take 1 tablet by wilson th at bedtime mirtazapine (Remeron) 7.5 MG tablet Take 7.5 mg by mouth at bedtime 01/22/2025 Active miscellaneous medical supply misc (7 sources) Start: 01-01-2021 End: 03-02-2024 miscellaneous medical supply misc Indications: Medication management 1 Unit by miscellaneous route See Admin Instructions. Split oral medication as indicated 1 each 01/01/2021 03/02/2024 Discontinued (Therapy completed) Start: 01-01-2021 miscellaneous medical supply misc Indications: Medication management 1 Unit by miscellaneous route See Admin Instructions. Split oral medication as indicated 1 each 0 01/01/2021 Active 2 ml ondansetron 2 mg/ml injection (7 sources) Serotonin-3 Receptor Antagonist Start: 05-13-2025 End: 05-15-2025 take 4 mg intravenously every six hours as needed for nausea and vomiting 4 mg, intravenous, Every 6 hours PRN, nausea, vomiting, Starting on 05/13/25 at 1445, Scheduling/ADT, Intravenous administration preferred to be given over 2-5 minutes. Start: 10-11-2024 take 1 tablet by wilson th every eight hours as needed for nausea ondansetron ODT (ZOFRAN ODT) 4 mg disintegrating tablet Dissolve 1 tablet (4 mg total) on tongue every 8 (eight) hours as needed for nausea for up to 10 doses. 10 tablet 10/11/2024 Active Start: 09-27-2023 End: 12-15-2023 take 1 tablet by mouth every eight hours as needed for nausea ondansetron ODT (ZOFRAN ODT) 4 mg disintegrating tablet Dissolve 1 tablet (4 mg total) on tongue every 8 (eight) hours as needed for nausea for up to 10 doses. 10 tablet 0 09/27/2023 12/15/2023 Discontinued (Therapy completed) Start: 12-07-2022 End: 12-07-2022 ondansetron (ZOFRAN) injecti on 4 mg pantoprazole 40 mg delayed release oral tablet (20 sources) Proton Pump Inhibitor Start: 03-05-2024 End: 11-24-2024 take 1 tablet by mouth in the morning pantoprazole (PROTONIX) 40 mg EC tablet TAKE 1 TABLET (40 MG TOTAL) BY MOUTH IN THE MORNING 03/05/2024 11/24/2024 Discontinued Start: 08-10-2023 End: 03-02-2024 take 1 tablet by mouth in the morning pantoprazole (PROTONIX) 40 mg EC tablet Indications: GERD without esophagitis Take 1 tablet (40 mg total) by mouth in the morning. 90 tablet 2 12/15/2023 Active take 40 mg by mouth before mealtime pantoprazole (ProtoNix) 40 MG packet Take 40 mg by mouth in the morning. Take before meals. Active piperacillin 3000 mg / tazobactam 375 mg injection (1 source) Penicillin-class Antibacterial, beta Lactamase Inhibitor Start: 05-13-2025 End: 05-14-2025 take 3.375 g intravenously every eight hours 3.375 g, intravenous, at 12.5 mL/hr, Administer over 4 Hours, Every 8 hours, First dose on Wed05/13/25 at 1600, Scheduling/ADT, Start 4 hours after 4.5gram dose, Indication: Sepsis polyethylene glycol 3350 03290 mg powder for oral solution (1 source) Osmotic Laxative Start: 12-09-2022 End: 12-09-2022 polyethylene glycol (GLYCOLAX) packet 17 g Potassium Chloride (1 source) Start: 05-14-2025 End: 05-15-2025 potassium chloride (K-TAB,KLOR-CON) CR tablet 30-50 mEq sertraline 50 mg oral tablet (20 sources) Serotonin Reuptake Inhibitor Start: 05-14-2025 End: 05-15-2025 take 100 mg by mouth once daily 100 mg, oral, Daily, First dose on Wed05/14/25 at 0900, Look-alike/sound-a like medication - verify indication for use. Start: 01-28-2025 take 1 tablet by wilson th in the morning sertraline (Zoloft) 100 MG tablet Take 100 mg by mouth in the morning. 01/28/2025 Active Start: 06-05-2024 End: 11-24-2024 take 1 tablet by mouth in the morning sertraline (ZOLOFT) 100 mg tablet Indications: Major depressive disorder in partial remission, unspecified whether recurrent (CMS-HCC) Take 1 tablet (100 mg total) by mouth in the morning. 90 tablet 2 06/05/2024 11/24/2024 Discontinued Start: 08-10-2023 End: 06-02-2024 take 1 tablet by mouth in the morning sertraline (ZOLOFT) 100 mg tablet Indications: Major depressive disorder in partial remission, unspecified whether recurrent (CMS-HCC) Take 1 tablet (100 mg total) by mouth in the morning. 90 tablet 2 05/12/2024 06/02/2024 Discontinued (Reorder) Start: 12-07-2022 take 100 mg by mouth once stacy y 100 mg, Oral, DAILY, First dose on Wed12/07/22 at 1645, Until Discontinued SITagliptin 50 mg oral tablet (20 sources) Dipeptidyl Peptidase 4 Inhibitor Start: 03-12-2024 End: 11-24-2024 take 1 tablet by mouth in the morning JANUVIA 50 mg tablet TAKE 1 TABLET (50 MG TOTAL) BY MOUTH IN THE MORNING 03/12/2024 11/24/2024 Discontinued Start: 08-10-2023 End: 03-02-2024 take 1 tablet by mouth in the morning SITagliptin phosphate (JANUVIA) 50 mg tablet Indications: 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 (CMS-HCC) Take 1 tablet (50 mg total) by mouth in the morning. 90 tablet 2 12/15/2023 Active take 1 tablet by wilson th once daily SITagliptin (Januvia) 25 MG tablet Take 25 mg by mouth Daily Active take 1 tablet by wilson th once daily sitaGLIPtin (JANUVIA) 50 MG tablet Take 50 mg by mouth daily. 0 Active 1000 ml sodium chloride 9 mg/ml injection (20 sources) Start: 05-13-2025 End: 05-14-2025 take 75 mL intravenously every hour 75 mL/hr, intravenous, Continuous, Starting on Wed05/13/25 at 1450, Scheduling/ADT Start: 05-13-2025 End: 05-15-2025 take 20 mL intravenously every hour as needed 20 mL/hr, intravenous, Continuous PRN, to maintain patency of lines, Starting on Wed05/13/25 at 1445, Scheduling/ADT Start: 05-13-2025 End: 05-15-2025 take 25 mL intravenously every hour as needed 25 mL, intravenous, at 100 mL/hr, Administer over 15 Minutes, As needed, line care, line care after IVPB administration, Starting on Wed05/13/25 at 1445, Scheduling/ADT Start: 05-13-2025 End: 05-13-2025 1,710 mL (30 mL/kg 57 kg Frankie al weight), intravenous, at 1,682 mL/hr, Administer over 61 Minutes, Once, On [place] 05/13/25 at 1110, For 1 dose Start: 05-13-2025 End: 05-15-2025 3 mL, intravenous, As needed , line care, before and after each intermittent use, Starting on Wed05/13/25 at 1034 Start: 03-30-2025 take 25 mL intraveno usly every hour as needed 25 mL/hr, intravenous, Continuous PRN, When mainline IV needed., Starting on Wed03/30/25 at 0750, Match IVF to base solution of product being administered to ensure compatibility. Start: 03-23-2025 take 25 mL intraveno usly every hour as needed 25 mL/hr, intravenous, Continuous PRN, When mainline IV needed., Starting on Wed03/23/25 at 1412, Match IVF to base solution of product being administered to ensure compatibility. Start: 03-22-2025 10 mL, intrave nous, As needed, line care, to lumen(s) as needed before and after each use., Starting on Wed03/22/25 at 0947 Start: 03-22-2025 take 25 mL intraveno usly every hour as needed 25 mL/hr, intravenous, Continuous PRN, When mainline IV needed., Starting on Wed03/22/25 at 0820, Match IVF to base solution of product being administered to ensure compatibility. Start: 03-20-2025 10 mL, intrave nous, As needed, line care, to lumen(s) as needed before and after each use., Starting on Wed03/20/25 at 0813 Start: 03-14-2025 End: 03-14-2025 10 mL, intravenous, As neede d, line care, to lumen(s) as needed before and after each use., Starting on Wed03/14/25 at 1151 Start: 03-12-2025 10 mL, intrave nous, As needed, line care, to lumen(s) as needed before and after each use., Starting on Wed03/12/25 at 0757 Start: 01-13-2023 End: 01-13-2023 0.9 % sodium [...] 11-24-2022 0.9 % sodium c hloride infusion sodium phosphate 20 mmol in sodium chloride 0.9 % 250 mL IVPB (1 source) Start: 05-14-2025 End: 05-15-2025 sodium phosphate 20 mmol in sodium chloride 0.9 % 250 mL IVPB traMADol hydrochloride 50 mg oral tablet (3 sources) Opioid Agonist Start: 05-12-2025 End: 05-15-2025 take 1 tablet by mouth every six hours as needed for pain and pain 50 mg, oral, Every 6 hours PRN, severe pain - pain scale 7-10, moderate pain - pain scale 4-6, Starting on Wed05/14/25 at 0138, Look-alike/sound- alike medication - verify indication for use. 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; Translations: [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 female breast] Onset: 03-18-2023 11-09-2024 Chronic Cardiac dysrhythmias (20 sources) Atrial fibrillation with rapid ventricular response; Translations: [Unspecified atrial fibrillation] Onset: 08-23-2024 01-22-2025 Chronic Cataract (20 sources) Pseudophakia; Translations: [Presence of intraocular lens] Onset: 08-25-2012 Chronic Chronic kidney disease (20 sources) Chronic kidney disease; Translations: [Chronic kidney disease, unspecified] Onset: 10-05-2022 01-13-2023 Chronic Chronic kidney disease (5 sources) Chronic kidney disease; Translations: [Chronic kidney disease, stage 3a] Onset: 01-13-2023 Chronic obstructive pulmonary disease and bronchiectasis (1 source) Chronic obstructive pulmonary disease, unspecified; Translations: [Chronic obstructive pulmonary disease, unspecified] Onset: 09-28-2022 Chronic Conduction disorders (20 sources) Left bundle branch block; Translations: [Left bundle-branch block, unspecified] Onset: 03-26-2020 06-14-2024 Chronic Congestive heart failure; nonhypertensive (20 sources) Acute on chronic diastolic heart failure; Translations: [Acute on chronic diastolic (congestive) heart failure] Onset: 10-05-2022 Resolved: 12-15-2023 12-15-2023 Chronic Coronary atherosclerosis and other heart disease (20 sources) Disorder of coronary artery; Translations: [Atherosclerotic heart disease of [place] coronary artery without angina pectoris] Onset: 10-14-2021 01-13-2023 Chronic Deficiency and other anemia (20 sources) Anemia of chronic disease; Translations: [Anemia in other chronic diseases classified elsewhere] Onset: 09-07-2017 11-09-2024 Chronic Deficiency and other anemia (5 sources) Anemia; Translations: [Anemia, unspecified] Onset: 01-13-2023 01-13-2023 Episodic Diabetes mellitus with complications (20 sources) Type 2 diabetes mellitus; Translations: [Type 2 diabetes mellitus with diabetic neuropathy, unspecified] Onset: 05-25-2017 01-13-2023 Chronic Diabetes mellitus without complication (2 sources) Type 2 diabetes mellitus without complications; Translations: [Insulin treated type 2 diabetes mellitus] Onset: 04-07-2021 04-04-2025 Chronic Disorders of lipid metabolism (3 sources) Pure hypercholesterolemia , unspecified; Translations: [Mixed hyperlipidemia] Onset: 04-07-2021 Chronic E Codes: Fall (1 source) Unspecified fall, initial encounter; Translations: [Unspecified fall, initial encounter] Onset: 03-24-2025 Episodic E Codes: Fall (1 source) Fall Onset: 03-24-2025 Esophageal disorders (20 sources) Gastro-esophageal reflux disease without esophagitis; Translations: [Gastroesophageal reflux disease without esophagitis] Onset: 05-25-2017 11-09-2024 Chronic Essential hypertension (20 sources) Essential (primary) hypertension; Translations: [Essential hypertension] Onset: 09-14-2019 Resolved: 12-02-2021 11-09-2024 Chronic Fracture of neck of femur (hip) (18 sources) Closed fracture of hip; Translations: [Closed fracture of femur, lesser trochanter] Onset: 05-14-2025 05-15-2025 Episodic Heart valve disorders (20 sources) Nonrheumatic aortic (valve) stenosis; Translations: [Aortic valve disorders] Onset: 10-05-2022 Resolved: 11-24-2024 10-13-2022 Chronic Hypertension with complications and secondary hypertension (20 sources) Hypertensive heart AND renal disease; Translations: [Hypertensive heart and chronic kidney disease with heart failure and stage 1 through stage 4 chronic kidney disease, or unspecified chronic kidney disease] Onset: 04-02-2023 06-14-2024 Chronic Mood disorders (20 sources) Major depressive disorder, single episode, unspecified; Translations: [Moderate recurrent major depression] Onset: 01-30-2019 Resolved: 12-14-2019 07-17-2019 Chronic Osteoarthritis (20 sources) Primary gonarthrosis, bilateral; Translations: [Bilateral primary osteoarthritis of knee] Onset: 10-26-2018 10-26-2018 Chronic Other aftercare (1 source) 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; Translations: [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] Onset: 04-07-2021 Episodic Other aftercare (1 source) Post-discharge follow-up; Translations: [Encounter for follow-up examination after completed treatment for conditions other than malignant neoplasm] 06-05-2025 Episodic Other circulatory disease (6 sources) History of angioplasty; Translations: [Peripheral vascular angioplasty status with implants and grafts] Onset: 12-07-2022 12-07-2022 Chronic Other endocrine disorders (2 sources) Hypoglycemia; Translations: [Hypoglycemia, unspecified] 06-21-2024 Chronic Other endocrine disorders (2 sources) Hypoglycemia, unspecified; Translations: [Hypoglycemia, unspecified] Onset: 06-21-2024 Chronic Other eye disorders (3 sources) Vitreous degeneration, bilateral; Translations: [PVD (posterior vitreous detachment), both eyes] Onset: 01-18-2025 Chronic Other injuries and conditions due to external causes (2 sources) Other injury of unspecified body region, initial encounter; Translations: [Other injury of unspecified body region, initial encounter] Onset: 04-05-2025 Episodic Other lower respiratory disease (14 sources) Hypoxia; Translations: [Hypoxemia] Onset: 03-16-2025 03-16-2025 Episodic Other nervous system disorders (20 sources) Cerebral ventriculomegaly; Translations: [Other specified disorders of brain] Onset: 09-21-2019 07-24-2020 Chronic Other nervous system disorders (20 sources) Normal pressure hydrocephalus; Translations: [(Idiopathic) normal pressure hydrocephalus] Onset: 09-05-2019 07-24-2020 Chronic Other nervous system disorders (20 sources) Difficulty walking; Translations: [Difficulty in walking, not elsewhere classified] Onset: 04-11-2024 06-14-2024 Chronic Other nervous system disorders (2 sources) (Idiopathic) normal pressure hydrocephalus; Translations: [(Idiopathic) normal pressure hydrocephalus] Onset: 05-22-2025 Chronic Other nervous system disorders (2 sources) Presence of cerebrospinal fluid drainage device; Translations: [Presence of cerebrospinal fluid drainage device] Onset: 04-05-2025 Chronic Other nervous system disorders (1 source) Other chronic pain; Translations: [Other chronic pain] Onset: 05-11-2025 Chronic Other nervous system disorders (1 source) Tremor, unspecified; Translations: [Tremor, unspecified] Onset: 01-13-2023 Episodic Other non-traumatic joint disorders (5 sources) Hip pain; Translations: [Pain in right hip] Onset: 05-11-2025 06-05-2025 Episodic Other non-traumatic joint disorders (1 source) Pain in right hip; Translations: [Pain in right hip] Onset: 05-12-2025 Episodic Other nutritional; endocrine; and metabolic disorders (20 sources) Obesity; Translations: [Obesity, unspecified] Onset: 04-11-2024 10-28-2024 Chronic Other nutritional; endocrine; and metabolic disorders (20 sources) Hypomagnesemia; Translations: [Hypomagnesemia] Onset: 06-14-2024 06-14-2024 Chronic Other nutritional; endocrine; and metabolic disorders (1 source) Hypomagnesemia; Translations: [Hypomagnesemia] Onset: 06-14-2024 Chronic Peripheral and visceral atherosclerosis (20 sources) Peripheral vascular disease, unspecified; Translations: [Peripheral vascular disease] Onset: 05-25-2017 08-12-2024 Chronic Residual codes; unclassified (2 sources) Obstructive sleep apnea (adult) (pediatric); Translations: [OBSTRUCTIVE SLEEP APNEA] Onset: 04-07-2021 Chronic Residual codes; unclassified (20 sources) Obstructive sleep apnea syndrome; Translations: [Obstructive sleep apnea (adult) (pediatric)] Onset: 09-21-2019 01-13-2023 Chronic Residual codes; unclassified (5 sources) H/O: blood transfusion; Translations: [Personal history of other medical treatment] Onset: 01-13-2023 01-13-2023 Episodic Residual codes; unclassified (6 sources) Family history of coronary arteriosclerosis; Translations: [Family history of ischemic heart disease and other diseases of the circulatory system] Onset: 01-13-2023 01-13-2023 Episodic Residual codes; unclassified (1 source) Family history of ischemic heart disease and other diseases of the circulatory system; Translations: [Family history of ischemic heart disease and other diseases of the circulatory system] Onset: 01-13-2023 Episodic Residual codes; unclassified (20 sources) Altered mental status; Translations: [Altered mental status, unspecified] Onset: 08-23-2024 08-23-2024 Episodic Residual codes; unclassified (1 source) Clouded consciousness Onset: 06-10-2025 Episodic Respiratory failure; insufficiency; arrest (adult) (20 sources) Acute hypoxemic and hypercapnic respiratory failure; Translations: [Acute respiratory failure with hypoxia] Onset: 08-12-2024 Resolved: 01-22-2025 08-12-2024 Episodic Retinal detachments; defects; vascular occlusion; and retinopathy (20 sources) Venous retinal branch occlusion; Translations: [Retinal edema] Onset: 08-25-2012 Chronic Secondary malignancies (20 sources) Secondary malignant neoplasm of bone; Translations: [Secondary malignant neoplasm of bone] Onset: 03-09-2024 11-09-2024 Chronic Secondary malignancies (1 source) Secondary malignant neoplasm of bone; Translations: [Secondary malignant neoplasm of bone] Onset: 03-24-2025 Chronic Spondylosis; intervertebral disc disorders; other back problems (20 sources) Herniation of nucleus pulposus of lumbar intervertebral disc; Translations: [Other intervertebral disc displacement, lumbar region] Onset: 06-27-2018 07-15-2022 Chronic Spondylosis; intervertebral disc disorders; other back problems (20 sources) Lumbar radiculopathy; Translations: [Radiculopathy, lumbar region] Onset: 05-30-2018 05-27-2021 Episodic Suicide and intentional self-inflicted injury (4 sources) Poisoning by insulin and oral hypoglycemic [antidiabetic] drugs, intentional self-harm, initial encounter; Translations: [PSN INSULIN ORL HG RX SLF-HRM INIT] Onset: 03-19-2021 Episodic Unclassified (1 source) CONTACT W/AND (SUSP) EXPOS COVID-19; Translations: [CONTACT W/AND (SUSP) EXPOS COVID-19] Onset: 04-07-2021 Unclassified (1 source) tcm Onset: 08-28-2024 Unclassified (1 source) Low back pain, unspecified; Translations: [Low back pain, unspecified] Onset: 03-24-2025 Unclassified (1 source) Outpatient Infusion Onset: 03-12-2025 Unclassified (1 source) Medical Screening Onset: 02-12-2025 Unclassified (1 source) Female Dysuria Onset: 01-10-2025 Unclassified (1 source) Painful Urination Onset: 10-09-2024 Unclassified (1 source) Low Blood Sugar - Symptomatic Onset: 08-23-2024 Unclassified (1 source) Weakness - Generalized Onset: 08-12-2024 Unclassified (1 source) Low Blood Sugar - No Symptoms Onset: 06-25-2024 Unclassified (1 source) EMS Onset: 06-25-2024 Urinary tract infections (20 sources) Acute cystitis without hematuria; Translations: [Acute cystitis] Onset: 09-21-2019 08-12-2024 Episodic Viral infection (1 source) COVID-19; Translations: [COVID-19] Onset: 08-12-2024 Past or Other Problems Problem Classification Problem Date Documented Da te Episodic/Chronic Abdominal pain (1 source) Abdominal pain Onset: 4 Episodic Acute and unspecified renal failure (20 sources) Acute injury of kidney; Translations: [Acute kidney failure, unspecified] Onset: 3 Episodic Acute myocardial infarction (20 sources) Myocardial infarction; Translations: [Non-ST elevation (NSTEMI) myocardial infarction] Onset: 2 Resolved: 5 09-29-2022 Chronic Administrative/social admission (20 sources) Finding of activity of daily living; Translations: [Limitation of activities due to disability] Onset: 4 06-14-2024 Episodic Bacterial infection; unspecified site (20 sources) Methicillin resistant Staphylococcus aureus infection; Translations: [Methicillin resistant Staphylococcus aureus infection as the cause of diseases classified elsewhere] Onset: 4 06-14-2024 Episodic Conditions associated with dizziness or vertigo (20 sources) Dizziness; Translations: [Dizziness and giddiness] Onset: 9 Resolved: 1 12-11-2019 Episodic Deficiency and other anemia (20 sources) Iron deficiency anemia secondary to inadequate dietary iron intake; Translations: [Other iron deficiency anemias] Onset: 4 08-12-2024 Episodic Deficiency and other anemia (3 sources) Iron deficiency anemia; Translations: [Iron deficiency anemia, unspecified] Onset: 4 05-14-2025 Episodic Deficiency and other anemia (1 source) Anemia, unspecified; Translations: [Anemia, unspecified] Onset: 4 Episodic Fever of unknown origin (1 source) Fever, unspecified; Translations: [Fever, unspecified] Onset: 5 Episodic Fluid and electrolyte disorders (20 sources) Lactic acidosis; Translations: [Lactic acidosis] Onset: 4 06-14-2024 Episodic Gastrointestinal hemorrhage (20 sources) Gastrointestinal hemorrhage; Translations: [Gastrointestinal hemorrhage, unspecified] Onset: 9 10-17-2019 Episodic Genitourinary symptoms and ill-defined conditions (20 sources) Total urinary incontinence; Translations: [Continuous leakage] Onset: 9 Resolved: 0 12-14-2019 Chronic Heart valve disorders (20 sources) Heart murmur; Translations: [Cardiac murmur, unspecified] Onset: 0 06-14-2024 Episodic Immunizations and screening for infectious disease (2 sources) Needs influenza immunization; Translations: [Encounter for immunization] Onset: 4 08-28-2024 Episodic Malaise and fatigue (20 sources) Asthenia; Translations: [Weakness] Onset: 4 06-14-2024 Episodic Mood disorders (20 sources) Mood disorders Onset: 4 Resolved: 5 10-28-2024 Mycoses (3 sources) Candidal intertrigo; Translations: [Candidiasis of skin and nail] Onset: 5 09-06-2024 Episodic Nausea and vomiting (1 source) Nausea with vomiting, unspecified; Translations: [Nausea with vomiting, unspecified] Onset: 4 Episodic Other aftercare (3 sources) correction (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; Translations: [SENIOR CARE CURRENT USE OF INSULIN] Onset: 1 Episodic Other connective tissue disease (20 sources) Muscle weakness; Translations: [Muscle weakness (generalized)] Onset: 4 06-14-2024 Episodic Other connective tissue disease (20 sources) Other symptoms and signs involving the musculoskeletal system; Translations: [Other musculoskeletal symptoms referable to limbs] Onset: 8 Resolved: 0 05-28-2020 Episodic Other connective tissue disease (5 sources) Paraparesis; Translations: [Other symptoms and signs involving the musculoskeletal system] Onset: 8 Resolved: 0 05-28-2020 Episodic Other connective tissue disease (1 source) Pain in lower limb Onset: 5 Episodic Other fractures (20 sources) Closed fracture pubis; Translations: [Unspecified fracture of left pubis, subsequent encounter for fracture with routine healing] Onset: 3 04-01-2023 Episodic Other gastrointestinal disorders (20 sources) Constipation; Translations: [Constipation, unspecified] Onset: 0 06-14-2024 Episodic Other inflammatory condition of skin (1 source) Itching Onset: 4 Episodic Other lower respiratory disease (3 sources) Shortness of breath; Translations: [Shortness of breath] Onset: 2 Episodic Other lower respiratory disease (2 sources) Hypoxemia; Translations: [Hypoxemia] Onset: 2 Episodic Other lower respiratory disease (20 sources) Dyspnea; Translations: [Shortness of breath] Onset: 2 10-05-2022 Episodic Other lower respiratory disease (20 sources) H/O: pneumonia; Translations: [Personal history of pneumonia (recurrent)] Onset: 2 10-05-2022 Episodic Other nervous system disorders (20 sources) Tremor; Translations: [Tremor, unspecified] Onset: 3 01-13-2023 Episodic Other nervous system disorders (20 sources) Finding related to ability to move; Translations: [Other abnormalities of gait and mobility] Onset: 1 04-28-2022 Episodic Other screening for suspected conditions (not mental disorders or infectious disease) (20 sources) D-dimer above reference range; Translations: [Other specified abnormal findings of blood chemistry] Onset: 2 10-05-2022 Episodic Other upper respiratory infections (1 source) Upper respiratory infection; Translations: [Acute upper respiratory infection, unspecified] 12-15-2023 Episodic Pneumonia (except that caused by tuberculosis or sexually transmitted disease) (20 sources) Community acquired pneumonia; Translations: [Unspecified bacterial pneumonia] Onset: 2 Resolved: 5 09-28-2022 Episodic Residual codes; unclassified (20 sources) Edema of lower extremity; Translations: [Localized edema] Onset: 0 07-24-2020 Episodic Residual codes; unclassified (20 sources) Denture present; Translations: [Presence of dental prosthetic device (complete) (partial)] Onset: 9 07-24-2020 Episodic Residual codes; unclassified (20 sources) Insomnia; Translations: [Insomnia, unspecified] Onset: 4 06-14-2024 Episodic Residual codes; unclassified (1 source) Insomnia, unspecified; Translations: [Insomnia, unspecified] Onset: 4 Episodic Residual codes; unclassified (1 source) Other specified health status; Translations: [Other specified health status] Onset: 5 Episodic Residual codes; unclassified (1 source) Altered mental status, unspecified; Translations: [Altered mental status, unspecified] Onset: 5 Episodic Residual codes; unclassified (1 source) Estrogen receptor positive status [ER+]; Translations: [Estrogen receptor positive status (ER+)] Onset: 4 Episodic Septicemia (except in labor) (20 sources) Sepsis without acute organ dysfunction; Translations: [Sepsis, unspecified organism] Onset: 4 08-12-2024 Episodic Unclassified (20 sources) Onset: 4 Resolved: 5 02-09-2024 Unclassified (2 sources) AMD (chief complaint) Onset: 5 Viral infection (20 sources) Disease caused by 2019-nCoV; Translations: [COVID-19] Onset: 4 08-12-2024 Episodic Results Test Name Value Interpretation Reference Range Facility Urine Cultureon 06-25-2025 Bacteria identified Cx Nom (U) ORGANISM: Citrobacter freundii complex (O:CITFRC) [place] Count >100,000 ORGANISM: Enterococcus faecalis (O:ENTFAC) [place] Count 50,000 Aerobic CLARK Charge (NMIC56) SUSCEPTIBILITY ORGANISM: O:CITFRC ANTIBIOTIC INTERPRETATION CLARK Amikacin S <16 Aztreonam R >16 Cefepime S <2 Ceftazidime R >16 Ceftazidime/Avibactam S <4 Ceftriaxone R 32 Ciprofloxacin S <0.25 Ertapenem S <0.5 Gentamicin S <2 Levofloxacin S <0.5 Meropenem S <1 Nitrofurantoin S <32 Piperacillin/Tazobactam I <8 Tetracycline S <4 Tigecycline S <2 Tobramycin S <2 Trimethoprim/Sulfamethoxazole S <0.5 Aerobic CLARK Charge (PCMIC38) SUSCEPTIBILITY ORGANISM: O:ENTFAC ANTIBIOTIC INTERPRETATION CLARK Ampicillin S <2 Ciprofloxacin S <1 Daptomycin S 2 Levofloxacin S <1 Linezolid S 2 Nitrofurantoin S <32 Penicillin S 2 Tetracycline R >8 Vancomycin S 1 S = SUSCEPTIBLE I = INTERMEDIATE R = RESISTANT BLANK = DATA NOT AVAILABLE, OR DRUG NOT ADVISABLE OR TESTED R* = RESISTANCE DUE TO EXTENDED SPECTRUM BETA-LACTAMASES ESBL = EXTENDED SPECTRUM BETA-LACTAMASE TFG = THYMIDINE-DEPENDENT STRAIN LOVELY = BETA-LACTAMASE POSITIVE IB = INDUCIBLE BETA-LACTAMASE. APPEARS IN PLACE OF 'S' WITH SPECIES KNOWN TO POSSESS INDUCIBLE BETA-LACTAMASES. POTENTIALLY THEY MAY BECOME RESISTANT TO ALL B-LACTAM DRUGS. PERFORMED BY: [place] [address] PATHOLOGIST APPLICATION PROCESSOR MARA LOPEZ M.D. Normal [facility] Comment on above: Performed By: #### C UU #### [address] BEDSIDE GLUCOSEon 06-13-2025 Glucose [Mass/Vol] 336 mg/dL High 65-99 [facility] Comment on above: Performed By: #### B EDG ####[facility] ([address] [address] VIR CBC WITH AUTO DIFFERENTIALon 06-13-2025 BASOPHILS ABSOLUTE COUNT (10*3/UL) BY AUTOMATED COUNT 0.1 10*3/uL Normal 0.0-0.2 [facility] Comment on above: Performed By: #### C BCA ####[facility] ([address] [address] VIR BASOPHILS RELATIVE PERCENT BY AUTOMATED COUNT 1.4 % Normal [facility] Comment on above: Performed By: #### C BCA ####[facility] [place] [address] VIR CELLAVISION DIFFERENTIAL TYPE AUTOMATED DIFFERENTIAL Normal [facility] Comment on above: Performed By: #### C BCA ####[facility] ([address] [place] [address] VIR Eosinophils (Bld) [#/Vol] 0.3 10*3/uL Normal 0.0-0.4 [facility] Comment on above: Performed By: #### C BCA ####[facility] ([address] [address] VIR EOSINOPHILS RELATIVE PERCENT BY AUTOMATED COUNT 4.0 % Normal [facility] Comment on above: Performed By: #### C BCA ####[address] [address] VIR Erythrocyte distribution width (RBC) [Ratio] 16.5 % High 11.5-15 [facility] Comment on above: Performed By: #### C BCA ####[facility] ([address] [address] VIR Hematocrit (Bld) [Volume fraction] 28.0 % Low 35-47 [facility] Comment on above: Performed By: #### C BCA ####[address] [place] [address] VIR Hemoglobin (Bld) [Mass/Vol] 9.2 g/dL Low 11.7-15.5 [facility] Comment on above: Performed By: #### C BCA ####[facility] ([address] [address] VIR LYMPHOCYTES ABSOLUTE COUNT (10*3/UL) BY AUTOMATED COUNT 2.2 10*3/uL Normal 1.0-3.5 [facility] Comment on above: Performed By: #### C BCA ####[facility] ([address] [place] [address] VIR LYMPHOCYTES RELATIVE PERCENT BY AUTOMATED COUNT 31.9 % Normal [facility] Comment on above: Performed By: #### C BCA ####[facility] ([address] [address] VIR MCH (RBC) [Entitic mass] 26.7 pg Low 27-34 [facility] Comment on above: Performed By: #### C BCA ####[facility] ([address] [address] VIR MCHC (RBC) [Mass/Vol] 33.0 g/dL Normal 32-36 [facility] Comment on above: Performed By: #### C BCA ####[facility] ([address] [address] VIR MCV (RBC) [Entitic vol] 81 fL Normal 80-100 [facility] Comment on above: Performed By: #### C BCA ####[facility] ([address] [address] VIR MONOCYTES ABSOLUTE COUNT (10*3/UL) BY AUTOMATED COUNT 0.8 10*3/uL Normal 0.0-0.9 [facility] Comment on above: Performed By: #### C BCA ####[facility] ([address] [place] [address] VIR MONOCYTES RELATIVE PERCENT BY AUTOMATED COUNT 12.4 % Normal [facility] Comment on above: Performed By: #### C BCA ####[facility] ([address] [address] VIR NEUTROPHILS ABSOLUTE COUNT BY AUTOMATED COUNT 3.4 10*3/uL Normal 1.5-6.6 [facility] Comment on above: Performed By: #### C BCA ####[facility] ([address] [place] [address] VIR NEUTROPHILS RELATIVE PERCENT BY AUTOMATED COUNT 50.3 % Normal [facility] Comment on above: Performed By: #### C BCA ####[facility] ([address] [place] [address] VIR Platelet mean volume (Bld) [Entitic vol] 8.2 fL Normal 7-12 [facility] Comment on above: Performed By: #### C BCA ####[facility] ([address] [place] [address] VIR Platelets (Bld) [#/Vol] 226 10*3/uL Normal 150-450 [facility] Comment on above: Performed By: #### C BCA ####[facility] ([address] [place] [address] VIR RBC COUNT 3.45 X10E12/L Low 3.8-5.2 [facility] Comment on above: Performed By: #### C BCA ####[facility] ([address] [address] VIR WBC (Bld) [#/Vol] 6.8 10*3/uL Normal 4-11 [facility] Comment on above: Performed By: #### C BCA ####[facility] ([address] [place] [address] VIR COMPREHENSIVE METABOLIC PANE Dickson 06-13-2025 Albumin [Mass/Vol] 2.9 g/dL Low 3.2-5.3 [facility] Comment on above: Performed By: #### C MP ####[facility] ([address] [place] [address] VIR ALP [Catalytic activity/Vol] 104 U/L Normal 39-130 [facility] Comment on above: Performed By: #### C MP ####[facility] ([address] [place] [address] VIR ALT [Catalytic activity/Vol] 8 U/L Normal <=31 [facility] Comment on above: Performed By: #### C MP ####[facility] ([address] [place] [address] VIR Anion gap [Moles/Vol] 8 mmol/L Normal 5-15 [facility] Comment on above: Performed By: #### C MP ####[facility] ([address] [address] VIR AST [Catalytic activity/Vol] 14 U/L Normal <=41 [facility] Comment on above: Performed By: #### C MP ####[facility] ([address] [place] [address] VIR Bilirubin [Mass/Vol] 0.3 mg/dL Normal 0.3-1.2 [facility] Comment on above: Performed By: #### C MP ####[facility] ([address] [place] [address] VIR Calcium [Mass/Vol] 8.8 mg/dL Normal 8.5-10.5 [facility] Comment on above: Performed By: #### C MP ####[facility] ([address] [place] [address] VIR Chloride [Moles/Vol] 106 mmol/L Normal 98-109 [facility] Comment on above: Performed By: #### C MP ####[facility] ([address] [place] [address] VIR CO2 [Moles/Vol] 26 mmol/L Normal 22-32 [facility] Comment on above: Performed By: #### C MP ####[facility] ([address] [address] VIR Creatinine [Mass/Vol] 1.28 mg/dL High 0.40-1.00 [facility] Comment on above: Result Comment: METH OD TRACEABLE TO IDMS STANDARD Performed By: #### C MP ####[facility] ([address] [address] VIR GFR/1.73 sq M.predicted among non-blacks MDRD (S/P/Bld) [Vol rate/Area] 43 mL/min/{1.73_m2} Low >=60 [facility] Comment on above: Result Comment: eGFR not reported due to non-numeric value for Creatinine.Reported eGFR is based on theCKD-EPI 2020 equation that doesnot use a race coefficient. Performed By: #### C MP ####[address] [address] VIR Glucose [Mass/Vol] 160 mg/dL High 65-99 [facility] Comment on above: Performed By: #### C MP ####[address] [address] VIR Potassium [Moles/Vol] 3.8 mmol/L Normal 3.5-5.0 [facility] Comment on above: Performed By: #### C MP ####[address] [address] VIR Protein [Mass/Vol] 6.3 g/dL Normal 6.0-8.0 [facility] Comment on above: Performed By: #### C MP ####[facility] ([address] [address] VIR Sodium [Moles/Vol] 140 mmol/L Normal 134-146 [facility] Comment on above: Performed By: #### C MP ####[address] [address] VIR Urea nitrogen [Mass/Vol] 18 mg/dL Normal 5-27 [facility] Comment on above: Performed By: #### C MP ####[facility] ([facility])[address] [place] [address] [place] [address] VIR MAGNESIUMon 06-13-2025 Magnesium [Mass/Vol] 2.0 mg/dL Normal 1.8-2.6 [facility] Comment on above: Performed By: #### M G ####[facility] (PENDING SALE TO [facility])[address] [place] [address] [place] [address] VIR URINALYSISon 06-13-2025 Bilirubin Ql (U) Negative Normal Negative [facility] Comment on above: Performed By: #### U A ####[facility] (PENDING SALE TO [facility])[address] [place] [address] [place] [address] VIR BLOOD/HGB Negative Normal Negative [facility] Comment on above: Performed By: #### U A ####[facility] ([address] [place] [address] VIR Color (U) Yellow Normal Yellow [facility] Comment on above: Performed By: #### U A ####[facility] ([address] [place] [address] VIR Glucose Ql (U) Negative Normal Negative, 250 mg/dL [facility] Comment on above: Performed By: #### U A ####[facility] ([address] [place] [address] VIR Ketones Ql (U) Negative Normal Negative [facility] Comment on above: Performed By: #### U A ####[facility] ([address] [place] [address] VIR Leukocyte esterase Test strip Ql (U) Negative Normal Negative [facility] Comment on above: Performed By: #### U A ####[facility] ([address] [place] [address] VIR MUCOUS Present Abnormal None [facility] Comment on above: Performed By: #### U A ####[facility] (PENDING SALE TO [facility])[address] [place] [address] VIR Nitrite Ql (U) Negative Normal Negative [facility] Comment on above: Performed By: #### U A ####[facility] (PEND[facility] S[facility] TO [facility])[address] [address] VIR PH,URINE 6.0 Normal 5.0-8.5 [facility] Comment on above: Performed By: #### U A ####[facility] (PENDING S[facility] TO [facility])[address] [address] VIR Protein Ql (U) Trace Abnormal Negative [facility] Comment on above: Performed By: #### U A ####[facility] (PEND[facility] S[facility] TO [facility])[address] [place] [address] [place] [address] VIR Specific gravity (U) [Rel density] 1.025 Normal 1.003-1.03 5 [facility] Comment on above: Performed By: #### U A ####[facility] (PEND[facility] S[facility] TO [facility])[address] [place] [address].[place] [address] VIR TURBIDITY Clear Normal Clear [facility] Comment on above: Performed By: #### U A ####[facility] (PEND[facility] S[facility])[address] [place], [place] [address] [address] VIR UROBILINOGEN 0.2 eu/dL Normal 0.2 eu/dL, 1.0 eu/dL [facility] Comment on above: Performed By: #### U A ####[facility] (PEND[facility] S[facility] TO [facility])[address] [place] [address].[place] [address] VIR URINE CULTUREon 06-13-2025 Bacteria identified Cx Nom (U) CULTURE RESULTS <10,000 ORGANISMS/mL NORMAL URO GENITAL BAILEY Normal [facility] Comment on above: Performed By: #### U C ####[facility] (TT)[address], [place] [address] VIR BEDSIDE GLUCOSEon 06-12-2025 Glucose [Mass/Vol] 229 mg/dL High [address] Comment on above: Performed By: #### B EDG ####[facility] ([address] [place] [address] VIR Glucose [Mass/Vol] 229 mg/dL High [address] [place] [address] Comment on above: Performed By: #### B EDG ####[facility] ([address] [place] [address] VIR Glucose [Mass/Vol] 262 mg/dL High [address] [place] [address] Comment on above: Performed By: #### B EDG ####[facility] ([address] [address] VIR Glucose [Mass/Vol] 184 mg/dL High [address] [place] [address] Comment on above: Performed By: #### B EDG ####[facility] ([address] [address] VIR CBC WITH AUTO DIFFERENTIALon 06-12-2025 BASOPHILS ABSOLUTE COUNT (10*3/UL) BY AUTOMATED COUNT 0.1 10*3/uL Normal 0.0-0.2 [facility] Comment on above: Performed By: #### C BCA ####[facility] ([address] [place] [address] VIR BASOPHILS RELATIVE PERCENT BY AUTOMATED COUNT 1.3 % Normal [facility] Comment on above: Performed By: #### C BCA ####[facility] ([address] [address] VIR CELLAVISION DIFFERENTIAL TYPE AUTOMATED DIFFERENTIAL Normal [facility] Comment on above: Performed By: #### C BCA ####[facility] ([address] [address] VIR Eosinophils (Bld) [#/Vol] 0.3 10*3/uL Normal 0.0-0.4 [facility] Comment on above: Performed By: #### C BCA ####[facility] ([address] [address] VIR EOSINOPHILS RELATIVE PERCENT BY AUTOMATED COUNT 3.4 % Normal [facility] Comment on above: Performed By: #### C BCA ####[facility] ([address] [address] VIR Erythrocyte distribution width (RBC) [Ratio] 16.1 % High 11.5-15 [facility] Comment on above: Performed By: #### C BCA ####[facility] ([address] [address] VIR Hematocrit (Bld) [Volume fraction] 32.8 % Low 35-47 [facility] Comment on above: Performed By: #### C BCA ####[facility] ([address] [address] VIR Hemoglobin (Bld) [Mass/Vol] 10.9 g/dL Low 11.7-15.5 [facility] Comment on above: Performed By: #### C BCA ####[facility] ([address] [address] VIR LYMPHOCYTES ABSOLUTE COUNT (10*3/UL) BY AUTOMATED COUNT 2.2 10*3/uL Normal 1.0-3.5 [facility] Comment on above: Performed By: #### C BCA ####[facility] ([address] [address] VIR LYMPHOCYTES RELATIVE PERCENT BY AUTOMATED COUNT 29.1 % Normal [facility] Comment on above: Performed By: #### C BCA ####[facility] ([address] [address] VIR MCH (RBC) [Entitic mass] 26.5 pg Low 27-34 [facility] Comment on above: Performed By: #### C BCA ####[facility] ([address] [place] [address] VIR MCHC (RBC) [Mass/Vol] 33.2 g/dL Normal 32-36 [facility] Comment on above: Performed By: #### C BCA ####[facility] ([address] [address] VIR MCV (RBC) [Entitic vol] 80 fL Normal 80-100 [facility] Comment on above: Performed By: #### C BCA ####[facility] ([address] [address] VIR MONOCYTES ABSOLUTE COUNT (10*3/UL) BY AUTOMATED COUNT 1.0 10*3/uL High 0.0-0.9 [facility] Comment on above: Performed By: #### C BCA ####[facility] ([address] [address] VIR MONOCYTES RELATIVE PERCENT BY AUTOMATED COUNT 13.9 % Normal [facility] Comment on above: Performed By: #### C BCA ####[facility] ([address] [address] VIR NEUTROPHILS ABSOLUTE COUNT BY AUTOMATED COUNT 3.9 10*3/uL Normal 1.5-6.6 [facility] Comment on above: Performed By: #### C BCA ####[facility] ([address] [address] VIR NEUTROPHILS RELATIVE PERCENT BY AUTOMATED COUNT 52.3 % Normal [facility] Comment on above: Performed By: #### C BCA ####[facility] ([address] [address] VIR Platelet mean volume (Bld) [Entitic vol] 9.1 fL Normal 7-12 [facility] Comment on above: Performed By: #### C BCA ####[facility] ([address] [place] [address] VIR Platelets (Bld) [#/Vol] 233 10*3/uL Normal 150-450 [facility] Comment on above: Performed By: #### C BCA ####[facility] ([address] [place] [address] VIR RBC COUNT 4.11 X10E12/L Normal 3.8-5.2 [facility] Comment on above: Performed By: #### C BCA ####[facility] ([address] [place] [address] VIR WBC (Bld) [#/Vol] 7.4 10*3/uL Normal 4-11 [facility] Comment on above: Performed By: #### C BCA ####[facility] ([address] [place] [address] VIR COMPREHENSIVE METABOLIC PANE [facility] 06-12-2025 Albumin [Mass/Vol] 3.2 g/dL Normal 3.2-5.3 [facility] Comment on above: Performed By: #### C MP ####[facility] ([address] [place] [address] VIR ALP [Catalytic activity/Vol] 115 U/L Normal 39-130 [facility] Comment on above: Performed By: #### C MP ####[facility] ([address] [place] [address] VIR ALT [Catalytic activity/Vol] 12 U/L Normal <=31 [facility] Comment on above: Performed By: #### C MP ####[facility] ([address] [place] [address] VIR Anion gap [Moles/Vol] 11 mmol/L Normal 5-15 [facility] Comment on above: Performed By: #### C MP ####[facility] ([address] [place] [address] VIR AST [Catalytic activity/Vol] 21 U/L Normal <=41 [facility] Comment on above: Performed By: #### C MP ####[facility] ([address] [place] [address] VIR Bilirubin [Mass/Vol] 0.6 mg/dL Normal 0.3-1.2 [facility] Comment on above: Performed By: #### C MP ####[facility] ([address] [place] [address] VIR Calcium [Mass/Vol] 8.9 mg/dL Normal 8.5-10.5 [facility] Comment on above: Performed By: #### C MP ####[address] [place] [address] VIR Chloride [Moles/Vol] 101 mmol/L Normal 98-109 [facility] Comment on above: Performed By: #### C MP ####[facility] ([address] [place] [address] VIR CO2 [Moles/Vol] 25 mmol/L Normal 22-32 [facility] Comment on above: Performed By: #### C MP ####[facility] ([address] [place] [address] VIR Creatinine [Mass/Vol] 1.21 mg/dL High 0.40-1.00 [facility] Comment on above: Result Comment: METH OD TRACEABLE TO IDMS STANDARD Performed By: #### C MP ####[facility] ([address] [place] [address] VIR GFR/1.73 sq M.predicted among non-blacks MDRD (S/P/Bld) [Vol rate/Area] 46 mL/min/{1.73_m2} Low >=60 [facility] Comment on above: Result Comment: eGFR not reported due to non-numeric value for Creatinine.Reported eGFR is based on theCKD-EPI 2020 equation that doesnot use a race coefficient. Performed By: #### C MP ####[facility] ([place] [address] [place] [address] VIR Glucose [Mass/Vol] 157 mg/dL High 65-99 [facility] Comment on above: Performed By: #### C MP ####[facility] ([address] [place] [address] VIR Potassium [Moles/Vol] 4.1 mmol/L Normal 3.5-5.0 [facility] Comment on above: Performed By: #### C MP ####[facility] ([address] [place] [address] VIR Protein [Mass/Vol] 7.2 g/dL Normal 6.0-8.0 [facility] Comment on above: Performed By: #### C MP ####[facility] ([address] [place] [address] VIR Sodium [Moles/Vol] 137 mmol/L Normal 134-146 [facility] Comment on above: Performed By: #### C MP ####[facility] ([address] [place] [address] VIR Urea nitrogen [Mass/Vol] 18 mg/dL Normal 5-27 [facility] Comment on above: Performed By: #### C MP ####[facility] ([address] [place] [address] VIR MAGNESIUMon 06-12-2025 Magnesium [Mass/Vol] 2.4 mg/dL Normal 1.8-2.6 [facility] Comment on above: Performed By: #### M G ####[facility] ([address] [place] [address] VIR APTTon 06-11-2025 aPTT Coag (Bld) [Time] 27 s Normal 26-37 [facility] Comment on above: Performed By: #### P TT ####[facility] ([address] [place] [address] VIR B-TYPE NATRIURETIC PEPTIDEon 06-11-2025 Natriuretic peptide B (Bld) [Mass/Vol] 161 pg/mL High <=100 [facility] Comment on above: Performed By: #### B CUE WORKER ####[facility] ([address] [place] [address] VIR BEDSIDE GLUCOSEon 06-11-2025 Glucose [Mass/Vol] 177 mg/dL High [address] [place] [address] Comment on above: Performed By: #### B EDG ####[address] [place] [address] VIR Glucose [Mass/Vol] 197 mg/dL High [address] [place] [address] Comment on above: Performed By: #### B EDG ####[facility] ([address] [address] VIR Glucose [Mass/Vol] 151 mg/dL High [address] [place] [address] Comment on above: Performed By: #### B EDG ####[facility] ([address] [address] VIR Glucose [Mass/Vol] 185 mg/dL High [address] [place] [address] Comment on above: Performed By: #### B EDG ####[facility] ([address] [address] VIR CBC WITH AUTO DIFFERENTIALon 06-11-2025 BASOPHILS ABSOLUTE COUNT (10*3/UL) BY AUTOMATED COUNT 0.0 10*3/uL Normal 0.0-0.2 [facility] Comment on above: Performed By: #### C BCA ####[facility] ([address] [place] [address] VIR BASOPHILS RELATIVE PERCENT BY AUTOMATED COUNT 0.4 % Normal [facility] Comment on above: Performed By: #### C BCA ####[facility] ([address] [place] [address] VIR CELLAVISION DIFFERENTIAL TYPE AUTOMATED DIFFERENTIAL Normal [facility] Comment on above: Performed By: #### C BCA ####[facility] ([address] [address] VIR Eosinophils (Bld) [#/Vol] 0.1 10*3/uL Normal 0.0-0.4 [facility] Comment on above: Performed By: #### C BCA ####[facility] ([address] [address] VIR EOSINOPHILS RELATIVE PERCENT BY AUTOMATED COUNT 0.6 % Normal [facility] Comment on above: Performed By: #### C BCA ####[facility] ([address] [place] [address] VIR Erythrocyte distribution width (RBC) [Ratio] 16.2 % High 11.5-15 [facility] Comment on above: Performed By: #### C BCA ####[facility] ([address] [place] [address] VIR Hematocrit (Bld) [Volume fraction] 31.6 % Low 35-47 [facility] Comment on above: Performed By: #### C BCA ####[facility] ([address] [place] [address] VIR Hemoglobin (Bld) [Mass/Vol] 10.4 g/dL Low 11.7-15.5 [facility] Comment on above: Performed By: #### C BCA ####[facility] ([address] [address] VIR LYMPHOCYTES ABSOLUTE COUNT (10*3/UL) BY AUTOMATED COUNT 1.4 10*3/uL Normal 1.0-3.5 [facility] Comment on above: Performed By: #### C BCA ####[facility] ([address] [address] VIR LYMPHOCYTES RELATIVE PERCENT BY AUTOMATED COUNT 13.4 % Normal [facility] Comment on above: Performed By: #### C BCA ####[facility] ([address] [address] VIR MCH (RBC) [Entitic mass] 26.3 pg Low 27-34 [facility] Comment on above: Performed By: #### C BCA ####[facility] ([address] [address] VIR MCHC (RBC) [Mass/Vol] 32.8 g/dL Normal 32-36 [facility] Comment on above: Performed By: #### C BCA ####[facility] ([address] [address] VIR MCV (RBC) [Entitic vol] 80 fL Normal 80-100 [facility] Comment on above: Performed By: #### C BCA ####[facility] ([address] [address] VIR MONOCYTES ABSOLUTE COUNT (10*3/UL) BY AUTOMATED COUNT 0.9 10*3/uL Normal 0.0-0.9 [facility] Comment on above: Performed By: #### C BCA ####[facility] ([address] [address] VIR MONOCYTES RELATIVE PERCENT BY AUTOMATED COUNT 8.8 % Normal [facility] Comment on above: Performed By: #### C BCA ####[facility] ([address] [address] VIR NEUTROPHILS ABSOLUTE COUNT BY AUTOMATED COUNT 8.3 10*3/uL High 1.5-6.6 [facility] Comment on above: Performed By: #### C BCA ####[facility] ([address] [place] [address] VIR NEUTROPHILS RELATIVE PERCENT BY AUTOMATED COUNT 76.8 % Normal [facility] Comment on above: Performed By: #### C BCA ####[facility] ([address] [place] [address] VIR Platelet mean volume (Bld) [Entitic vol] 8.2 fL Normal 7-12 [facility] Comment on above: Performed By: #### C BCA ####[facility] ([address] [address] VIR Platelets (Bld) [#/Vol] 318 10*3/uL Normal 150-450 [facility] Comment on above: Performed By: #### C BCA ####[facility] ([address] [address] VIR RBC COUNT 3.94 X10E12/L Normal 3.8-5.2 [facility] Comment on above: Performed By: #### C BCA ####[facility] ([address] [address] VIR WBC (Bld) [#/Vol] 10.8 10*3/uL Normal 4-11 [facility] Comment on above: Performed By: #### C BCA ####[facility] ([address] [address] VIR CK TOTALon 06-11-2025 CPK 81 U/L Normal 24-170 [facility] Comment on above: Performed By: #### C PK ####[facility] ([address] [place] [address] VIR COMPREHENSIVE METABOLIC PANE Dickson 06-11-2025 Albumin [Mass/Vol] 3.8 g/dL Normal 3.2-5.3 [facility] Comment on above: Performed By: #### C MP ####[facility] ([address] [place] [address] VIR ALP [Catalytic activity/Vol] 128 U/L Normal 39-130 [facility] Comment on above: Performed By: #### C MP ####[facility] ([address] [place] [address] VIR ALT [Catalytic activity/Vol] 14 U/L Normal <=31 [facility] Comment on above: Performed By: #### C MP ####[facility] ([address] [place] [address] VIR Anion gap [Moles/Vol] 15 mmol/L Normal 5-15 [facility] Comment on above: Performed By: #### C MP ####[facility] ([address] [place] [address] VIR AST [Catalytic activity/Vol] 25 U/L Normal <=41 [facility] Comment on above: Performed By: #### C MP ####[facility] ([address] [place] [address] VIR Bilirubin [Mass/Vol] 1.1 mg/dL Normal 0.3-1.2 [facility] Comment on above: Performed By: #### C MP ####[facility] ([address] [place] [address] VIR Calcium [Mass/Vol] 9.1 mg/dL Normal 8.5-10.5 [facility] Comment on above: Performed By: #### C MP ####[facility] ([address] [place] [address] VIR Chloride [Moles/Vol] 98 mmol/L Normal 98-109 [facility] Comment on above: Performed By: #### C MP ####[facility] ([address] [place] [address] VIR CO2 [Moles/Vol] 20 mmol/L Low 22-32 [facility] Comment on above: Performed By: #### C MP ####[facility] ([address] [place] [address] VIR Creatinine [Mass/Vol] 1.32 mg/dL High 0.40-1.00 [facility] Comment on above: Result Comment: METH OD TRACEABLE TO IDMS STANDARD Performed By: #### C MP ####[facility] ([address] [place] [address] VIR GFR/1.73 sq M.predicted among non-blacks MDRD (S/P/Bld) [Vol rate/Area] 41 mL/min/{1.73_m2} Low >=60 [facility] Comment on above: Result Comment: eGFR not reported due to non-numeric value for Creatinine.Reported eGFR is based on theCKD-EPI 1 equation that doesnot use a race coefficient. Performed By: #### C MP ####[facility] ([address] [place] [address] VIR Glucose [Mass/Vol] 209 mg/dL High 65-99 [facility] Comment on above: Performed By: #### C MP ####[facility] ([address] [place] [address] VIR Potassium [Moles/Vol] 3.8 mmol/L Normal 3.5-5.0 [facility] Comment on above: Performed By: #### C MP ####[facility] ([address] [place] [address] VIR Protein [Mass/Vol] 8.1 g/dL High 6.0-8.0 [facility] Comment on above: Performed By: #### C MP ####[facility] ([address] [place] [address] VIR Sodium [Moles/Vol] 133 mmol/L Low 134-146 [facility] Comment on above: Performed By: #### C MP ####[facility] ([address] [place] [address] VIR Urea nitrogen [Mass/Vol] 19 mg/dL Normal 5-27 [facility] Comment on above: Performed By: #### C MP ####[facility] ([address] [place] [address] ABDOMEN AND PELVIS WO CON Ton 06-11-2025 CT ABDOMEN AND PELVIS WO CONT Normal [facility] HEMOGLOBINon 06-11-2025 Hemoglobin (Bld) [Mass/Vol] 10.3 g/dL Low 11.7-15.5 [facility] Comment on above: Performed By: #### H GB ####[facility] ([address] [place] [address] VIR MAGNESIUMon 06-11-2025 Magnesium [Mass/Vol] 1.7 mg/dL Low 1.8-2.6 [facility] Comment on above: Performed By: #### M G ####[facility] ([address] [place] [address] VIR Magnesium [Mass/Vol] 1.6 mg/dL Low 1.8-2.6 [facility] Comment on above: Performed By: #### M G ####[facility] ([address] [place] [address] VIR PLATELET COUNTon 06-11-2025 Platelet mean volume (Bld) [Entitic vol] 8.7 fL Normal 7-12 [facility] Comment on above: Performed By: #### P LTCT ####[facility] ([address] [place] [address] VIR Platelets (Bld) [#/Vol] 287 10*3/uL Normal 150-450 [facility] Comment on above: Performed By: #### P LTCT ####[facility] ([address] [place] [address] VIR THYROID PROFILE INCLUDES TSH FT4on 06-11-2025 Free T4 [Mass/Vol] 1.59 ng/dL Normal 0.61-1.60 [facility] Comment on above: Performed By: #### T HYR ####[facility] ([address] [place] [address] VIR TSH 2.32 uIU/mL Normal 0.49-4.67 [facility] Comment on above: Performed By: #### T HYR ####[facility] ([address] [place] [address] VIR TROP I, HIGH SENSITIVITY 1 H OURon 06-11-2025 TROPONIN I, HIGH SENSITIVITY 13 ng/L Normal <16 [facility] Comment on above: Performed By: #### T [email or web address] ####[facility] ([address] [place] [address] VIR TROPONIN I, HIGH SENSITIVITY 0 HOURon 06-11-2025 TROPONIN I, HIGH SENSITIVITY 12 ng/L Normal <16 [facility] Comment on above: Performed By: #### T NIHS0 ####[facility] ([address] [place] [address] VIR XR CHEST 1 VWon 06-11-2025 XR CHEST 1 VW Normal [facility] CBC WITH AUTO DIFFERENTIALon 06-10-2025 BASOPHILS ABSOLUTE COUNT (10*3/UL) BY AUTOMATED COUNT 0.1 10*3/uL Normal 0.0-0.2 [facility] Comment on above: Performed By: #### C BCA ####[facility] ([address] [place] [address] VIR BASOPHILS RELATIVE PERCENT BY AUTOMATED COUNT 0.5 % Normal [facility] Comment on above: Performed By: #### C BCA ####[facility] ([address] [address] VIR CELLAVISION DIFFERENTIAL TYPE AUTOMATED DIFFERENTIAL Normal [facility] Comment on above: Performed By: #### C BCA ####[facility] ([address] [address] VIR Eosinophils (Bld) [#/Vol] 0.1 10*3/uL Normal 0.0-0.4 [facility] Comment on above: Performed By: #### C BCA ####[address] [address] VIR EOSINOPHILS RELATIVE PERCENT BY AUTOMATED COUNT 0.8 % Normal [facility] Comment on above: Performed By: #### C BCA ####[facility] ([address] [address] VIR Erythrocyte distribution width (RBC) [Ratio] 15.9 % High 11.5-15 [facility] Comment on above: Performed By: #### C BCA ####[facility] ([address] [address] VIR Hematocrit (Bld) [Volume fraction] 32.3 % Low 35-47 [facility] Comment on above: Performed By: #### C BCA ####[facility] ([address] [address] VIR Hemoglobin (Bld) [Mass/Vol] 10.7 g/dL Low 11.7-15.5 [facility] Comment on above: Performed By: #### C BCA ####28 [address] [address] VIR LYMPHOCYTES ABSOLUTE COUNT (10*3/UL) BY AUTOMATED COUNT 1.3 10*3/uL Normal 1.0-3.5 [facility] Comment on above: Performed By: #### C BCA ####[facility] ([address] [address] VIR LYMPHOCYTES RELATIVE PERCENT BY AUTOMATED COUNT 12.4 % Normal [facility] Comment on above: Performed By: #### C BCA ####[facility] ([address] [place] [address] VIR MCH (RBC) [Entitic mass] 26.7 pg Low 27-34 [facility] Comment on above: Performed By: #### C BCA ####[facility] ([address] [address] VIR MCHC (RBC) [Mass/Vol] 33.3 g/dL Normal 32-36 [facility] Comment on above: Performed By: #### C BCA ####[facility] ([address] [address] VIR MCV (RBC) [Entitic vol] 80 fL Normal 80-100 [facility] Comment on above: Performed By: #### C BCA ####[facility] ([address] [address] VIR MONOCYTES ABSOLUTE COUNT (10*3/UL) BY AUTOMATED COUNT 0.8 10*3/uL Normal 0.0-0.9 [facility] Comment on above: Performed By: #### C BCA ####[facility] ([address] [address] VIR MONOCYTES RELATIVE PERCENT BY AUTOMATED COUNT 8.1 % Normal [facility] Comment on above: Performed By: #### C BCA ####[address] [address] VIR NEUTROPHILS ABSOLUTE COUNT BY AUTOMATED COUNT 8.1 10*3/uL High 1.5-6.6 [facility] Comment on above: Performed By: #### C BCA ####[facility])[address] [address] VIR NEUTROPHILS RELATIVE PERCENT BY AUTOMATED COUNT 78.2 % Normal [facility] Comment on above: Performed By: #### C BCA ####[facility] ([address] [place] [address] VIR Platelet mean volume (Bld) [Entitic vol] 7.7 fL Normal 7-12 [facility] Comment on above: Performed By: #### C BCA ####[facility] ([address] [place] [address] VIR Platelets (Bld) [#/Vol] 305 10*3/uL Normal 150-450 [facility] Comment on above: Performed By: #### C BCA ####[facility] ([address] [place] [address] VIR RBC COUNT 4.02 X10E12/L Normal 3.8-5.2 [facility] Comment on above: Performed By: #### C BCA ####[facility] ([address] [place] [address] VIR WBC (Bld) [#/Vol] 10.3 10*3/uL Normal 4-11 [facility] Comment on above: Performed By: #### C BCA ####[facility] ([address] [place] [address] VIR COMPREHENSIVE METABOLIC PANE [facility] 06-10-2025 Albumin [Mass/Vol] 3.7 g/dL Normal 3.2-5.3 [facility] Comment on above: Performed By: #### C MP ####[facility] ([address] [place] [address] VIR ALP [Catalytic activity/Vol] 130 U/L Normal 39-130 [facility] Comment on above: Performed By: #### C MP ####[facility] ([facility])[address] [place] [address] VIR ALT [Catalytic activity/Vol] 15 U/L Normal <=31 [facility] Comment on above: Performed By: #### C MP ####[facility] (COUNTS INCLUDE 234 BEDS AT THE [facility] [place] [address] VIR Anion gap [Moles/Vol] 15 mmol/L Normal 5-15 [facility] Comment on above: Performed By: #### C MP ####[facility] ([place] [address] [place] [address] VIR AST [Catalytic activity/Vol] 21 U/L Normal <=41 [facility] Comment on above: Performed By: #### C MP ####[facility] ([place] [address] [address] VIR Bilirubin [Mass/Vol] 1.2 mg/dL Normal 0.3-1.2 [facility] Comment on above: Performed By: #### C MP ####[facility] ([place] [address] [place] [address] VIR Calcium [Mass/Vol] 9.6 mg/dL Normal 8.5-10.5 [facility] Comment on above: Performed By: #### C MP ####[facility] ([place] [address] [place] [address] VIR Chloride [Moles/Vol] 97 mmol/L Low 98-109 [facility] Comment on above: Performed By: #### C MP ####[facility] ([place] [address] [place] [address] VIR CO2 [Moles/Vol] 23 mmol/L Normal 22-32 [facility] Comment on above: Performed By: #### C MP ####[facility] ([place] [address] [place] [address] VIR Creatinine [Mass/Vol] 1.36 mg/dL High 0.40-1.00 [facility] Comment on above: Result Comment: METH OD TRACEABLE TO IDMS STANDARD Performed By: #### C MP ####[facility] ([address] [place] [address] VIR GFR/1.73 sq M.predicted among non-blacks MDRD (S/P/Bld) [Vol rate/Area] 40 mL/min/{1.73_m2} Low >=60 [facility] Comment on above: Result Comment: eGFR not reported due to non-numeric value for Creatinine.Reported eGFR is based on theCKD-EPI 2020 equation that doesnot use a race coefficient. Performed By: #### C MP ####[facility] ([address] [place] [address] VIR Glucose [Mass/Vol] 204 mg/dL High 65-99 [facility] Comment on above: Performed By: #### C MP ####[facility] ([address] [place] [address] VIR Potassium [Moles/Vol] 4.9 mmol/L Normal 3.5-5.0 [facility] Comment on above: Performed By: #### C MP ####[address] [place] [address] VIR Protein [Mass/Vol] 8.3 g/dL High 6.0-8.0 [facility] Comment on above: Performed By: #### C MP ####[facility] ([address] [place] [address] VIR Sodium [Moles/Vol] 135 mmol/L Normal 134-146 [facility] Comment on above: Performed By: #### C MP ####[facility] ([address] [place] [address] VIR Urea nitrogen [Mass/Vol] 18 mg/dL Normal 5-27 [facility] Comment on above: Performed By: #### C MP ####[facility] ([place] [address] [address] VIR POCT NURSING URINE MACROSCOP IC UAon 06-10-2025 BILIRUBIN MARYJO Moderate Abnormal Negative [facility] Comment on above: Performed By: #### N UM ####[facility] ([address] [place] [address] VIR BLOOD/HGB MARYJO Trace Abnormal Negative [facility] Comment on above: Performed By: #### N UM ####[facility] ([address] [place] [address] VIR GLUCOSE MARYJO Negative Normal Negative [facility] Comment on above: Performed By: #### N UM ####[facility] ([address] [place] [address] VIR KETONES MARYJO 40 mg/dL Abnormal Negative [facility] Comment on above: Performed By: #### N UM ####[facility] ([address] [place] [address] VIR LEUKOCYTE ESTERASE MARYJO Trace Abnormal Negative [facility] Comment on above: Performed By: #### N UM ####[facility] ([address] [place] [address] VIR NITRITE MARYJO Negative Normal Negative [facility] Comment on above: Performed By: #### N UM ####[facility] ([address] [place] [address] VIR PH MARYJO 5.5 Normal 5.0, 6.0, 6.5, 7.0, 7.5, 8.0, 8.5, 5.5 [facility] Comment on above: Performed By: #### N UM ####[facility] ([address] [place] [address] VIR PROTEIN MARYJO 100 mg/dL Abnormal Negative [facility] Comment on above: Performed By: #### N UM ####[facility] ([address] [place] [address] VIR SPECIFIC GRAVITY MARYJO >=1.030 Abnormal 1.010, 1.015, 1.020, 1.025 [facility] Comment on above: Performed By: #### N UM ####[facility] ([address] [place] [address] VIR UROBILINOGEN MARYJO 0.2 E.U./dL Normal [facility] Comment on above: Performed By: #### N UM ####[facility] ([address] [address] VIR URINE CULTUREon 06-10-2025 Bacteria identified Cx Nom (U) CULTURE RESULTS MULTIPLE SPECIES PRESENT. PROBABLE COLLECTION CONTAMINATION. SUGGEST REPEAT SPECIMEN. Normal [facility] Comment on above: Performed By: #### U C ####[facility] (TT)[address] [facility] [address] [address] VIR B-TYPE NATRIURETIC PEPTIDEon 06-08-2025 Natriuretic peptide B (Bld) [Mass/Vol] 85 pg/mL Normal <=100 [facility] Comment on above: Performed By: #### B CUE WORKER ####[facility] ([address] [place] [address] VIR BASIC METABOLIC PANELon - Anion gap [Moles/Vol] 10 mmol/L Normal 5-15 [facility] Comment on above: Performed By: #### B MP ####[facility] ([address] [address] VIR Calcium [Mass/Vol] 9.3 mg/dL Normal 8.5-10.5 [facility] Comment on above: Performed By: #### B MP ####[facility] ([address] [address] VIR Chloride [Moles/Vol] 101 mmol/L Normal 98-109 [facility] Comment on above: Performed By: #### B MP ####[facility] ([address] [place] [address] VIR CO2 [Moles/Vol] 24 mmol/L Normal 22-32 [facility] Comment on above: Performed By: #### B MP ####[facility] ([address] [place] [address] VIR Creatinine [Mass/Vol] 1.31 mg/dL High 0.40-1.00 [facility] Comment on above: Result Comment: METH OD TRACEABLE TO IDMS STANDARD Performed By: #### B MP ####[facility] ([address] [place] [address] VIR GFR/1.73 sq M.predicted among non-blacks MDRD (S/P/Bld) [Vol rate/Area] 42 mL/min/{1.73_m2} Low >=60 [facility] Comment on above: Result Comment: eGFR not reported due to non-numeric value for Creatinine.Reported eGFR is based on theCKD-EPI 1 equation that doesnot use a race coefficient. Performed By: #### B MP ####[facility] ([address] [place] [address] VIR Glucose [Mass/Vol] 174 mg/dL High 65-99 [facility] Comment on above: Performed By: #### B MP ####[facility] ([address] [place] [address] VIR Potassium [Moles/Vol] 4.2 mmol/L Normal 3.5-5.0 [facility] Comment on above: Performed By: #### B MP ####[facility] ([address] [place] [address] VIR Sodium [Moles/Vol] 135 mmol/L Normal 134-146 [facility] Comment on above: Performed By: #### B MP ####[facility] ([address] [address] VIR Urea nitrogen [Mass/Vol] 14 mg/dL Normal 5-27 [facility] Comment on above: Performed By: #### B MP ####[facility] ([address] [address] VIR CBC WITH AUTO DIFFERENTIALon 06-08-2025 BASOPHILS ABSOLUTE COUNT (10*3/UL) BY AUTOMATED COUNT 0.0 10*3/uL Normal 0.0-0.2 [facility] Comment on above: Performed By: #### C BCA ####[facility] ([address] [address] VIR BASOPHILS RELATIVE PERCENT BY AUTOMATED COUNT 0.5 % Normal [facility] Comment on above: Performed By: #### C BCA ####[facility] ([address] [address] VIR CELLAVISION DIFFERENTIAL TYPE AUTOMATED DIFFERENTIAL Normal [facility] Comment on above: Performed By: #### C BCA ####[facility] ([address] [address] VIR Eosinophils (Bld) [#/Vol] 0.2 10*3/uL Normal 0.0-0.4 [facility] Comment on above: Performed By: #### C BCA ####[facility] ([address] [address] VIR EOSINOPHILS RELATIVE PERCENT BY AUTOMATED COUNT 2.4 % Normal [facility] Comment on above: Performed By: #### C BCA ####[facility] ([address] [address] VIR Erythrocyte distribution width (RBC) [Ratio] 15.7 % High 11.5-15 [facility] Comment on above: Performed By: #### C BCA ####[facility] ([address] [address] VIR Hematocrit (Bld) [Volume fraction] 32.1 % Low 35-47 [facility] Comment on above: Performed By: #### C BCA ####[facility] ([address] [address] VIR Hemoglobin (Bld) [Mass/Vol] 10.5 g/dL Low 11.7-15.5 [facility] Comment on above: Performed By: #### C BCA ####[facility] ([address] [address] VIR LYMPHOCYTES ABSOLUTE COUNT (10*3/UL) BY AUTOMATED COUNT 1.5 10*3/uL Normal 1.0-3.5 [facility] Comment on above: Performed By: #### C BCA ####[facility] ([address] [address] VIR LYMPHOCYTES RELATIVE PERCENT BY AUTOMATED COUNT 18.7 % Normal [facility] Comment on above: Performed By: #### C BCA ####[facility] ([address] [address] VIR MCH (RBC) [Entitic mass] 26.4 pg Low 27-34 [facility] Comment on above: Performed By: #### C BCA ####[facility] ([address] [address] VIR MCHC (RBC) [Mass/Vol] 32.7 g/dL Normal 32-36 [facility] Comment on above: Performed By: #### C BCA ####[facility] ([address] [address] VIR MCV (RBC) [Entitic vol] 81 fL Normal 80-100 [facility] Comment on above: Performed By: #### C BCA ####[facility] ([address] [address] VIR MONOCYTES ABSOLUTE COUNT (10*3/UL) BY AUTOMATED COUNT 0.7 10*3/uL Normal 0.0-0.9 [facility] Comment on above: Performed By: #### C BCA ####[facility] ([address] [address] VIR MONOCYTES RELATIVE PERCENT BY AUTOMATED COUNT 9.1 % Normal [facility] Comment on above: Performed By: #### C BCA ####[facility] ([address] [address] VIR NEUTROPHILS ABSOLUTE COUNT BY AUTOMATED COUNT 5.6 10*3/uL Normal 1.5-6.6 [facility] Comment on above: Performed By: #### C BCA ####[facility] ([address] [address] VIR NEUTROPHILS RELATIVE PERCENT BY AUTOMATED COUNT 69.3 % Normal [facility] Comment on above: Performed By: #### C BCA ####[facility] ([address] [address] VIR Platelet mean volume (Bld) [Entitic vol] 8.0 fL Normal 7-12 [facility] Comment on above: Performed By: #### C BCA ####[facility] ([address] [address] VIR Platelets (Bld) [#/Vol] 317 10*3/uL Normal 150-450 [facility] Comment on above: Performed By: #### C BCA ####[facility] ([address] [address] VIR RBC COUNT 3.98 X10E12/L Normal 3.8-5.2 [facility] Comment on above: Performed By: #### C BCA ####[facility] ([address] [place] [address] VIR WBC (Bld) [#/Vol] 8.1 10*3/uL Normal 4-11 [facility] Comment on above: Performed By: #### C BCA ####[facility] ([address] [place] [address] VIR MAGNESIUMon 06-08-2025 Magnesium [Mass/Vol] 1.8 mg/dL Normal 1.8-2.6 [facility] Comment on above: Performed By: #### M G ####[facility] ([address] [place] [address] VIR POCT NURSING URINE MACROSCOP IC UAon 06-08-2025 BILIRUBIN MARYJO Negative Normal Negative [facility] Comment on above: Performed By: #### N UM ####[facility] ([address] [place] [address] VIR BLOOD/HGB MARYJO Negative Normal Negative [facility] Comment on above: Performed By: #### N UM ####[facility] ([address] [place] [address] VIR GLUCOSE MARYJO Negative Normal Negative [facility] Comment on above: Performed By: #### N UM ####[facility] ([address] [place] [address] VIR KETONES MARYJO Trace Abnormal Negative [facility] Comment on above: Performed By: #### N UM ####[facility] ([address] [place] [address] VIR LEUKOCYTE ESTERASE MARYJO Large Abnormal Negative [facility] Comment on above: Performed By: #### N UM ####[facility] ([address] [place] [address] VIR NITRITE MARYJO Negative Normal Negative [facility] Comment on above: Performed By: #### N UM ####[facility] ([address] [place] [address] VIR PH MARYJO 7.0 Normal 5.0, 6.0, 6.5, 7.0, 7.5, 8.0, 8.5, 5.5 [facility] Comment on above: Performed By: #### N UM ####[facility] ([address] [place] [address] VIR PROTEIN MARYJO Negative Normal Negative [facility] Comment on above: Performed By: #### N UM ####[facility] ([address] [place] [address] VIR SPECIFIC GRAVITY MARYJO 1.015 Normal 1.010, 1.015, 1.020, 1.025 [facility] Comment on above: Performed By: #### N UM ####[facility] ([address] [place] [address] VIR UROBILINOGEN MARYJO 0.2 E.U./dL Normal [facility] Comment on above: Performed By: #### N UM ####[facility] ([address] [place] [address] VIR THYROID PROFILE INCLUDES TSH FT4on 06-08-2025 Free T4 [Mass/Vol] 1.21 ng/dL Normal 0.61-1.60 [facility] Comment on above: Performed By: #### T HYR ####[facility] ([address] [place] [address] VIR TSH 2.66 uIU/mL Normal 0.49-4.67 [facility] Comment on above: Performed By: #### T HYR ####[facility] ([address] [place] [address] VIR TROP I, HIGH SENSITIVITY 1 H OURon 06-08-2025 TROPONIN I, HIGH SENSITIVITY 7 ng/L Normal <16 [facility] Comment on above: Performed By: #### T NIHS1 ####[facility] (PENDING SALE TO [facility])[address] [place] [address] VIR TROPONIN I, HIGH SENSITIVITY 0 HOURon 06-08-2025 TROPONIN I, HIGH SENSITIVITY 7 ng/L Normal <16 [facility] Comment on above: Performed By: #### T NIHS0 ####[facility] ([facility]END[facility])[address] [place] [address] VIR XR CHEST 1 VWon 06-08-2025 XR CHEST 1 VW Normal [facility] XR Pelvis 1 or 2 [facility] Result: AP Pelvis Osteopenia noted Mild distraction of less trochanteric avulsion fracture. Soft tissue vascular calcifications are prominent No effusion. Remote sclerotic changes from pubic ramus fracture bilaterally with mild degenerative changes of hip Impression: stable appearing right hip lesser trochanteric avulsion fracture. [facility] Radiology Study observation (narrative) [facility] XR HIP RT 2-3 VIEWS W OR WO PELVISon 05-30-2025 XR HIP RT 2-3 VIEWS W OR WO PELVIS Normal [facility] CT HEAD WO IV CONTRASTon CT HEAD WO IV CONTRAST CT HEAD WO IV CONTRAST HISTORY: Normal [...] base and calvarium show no acute abnormality. IMPRESSION: * Similar appearance and placement of right frontal shunt placement. * Ventriculomegaly which correlates with patient's known normal pressure hydrocephalus. No significant interval change compared to prior examination. * No evidence of acute intracranial abnormality. Approved by:Jason Sanchez05/22/2025 9:45 AM. I, Sukhjinder Ferrara,have reviewed the image(s) and agree with the findings in this report. Electronically signed: Sukhjinder Ferrara. 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, also needs shunt series x ray same day Follow-Upon 05-22-2025 Follow-Up [id number] Jb Goodwin fab Casas 1945 F Date Provider Department Center 05/22/2025 VALE TAMAYO [facility] SURG Second Fl Family History Problem Relation Age of Onset Diabetes Mother Hypertension Father Coronary artery disease Father Family Status - Relation Status Age at Mother Father Level of Service:[address] [place] OFFICE/OUTPATIENT ESTABLISHED MOD MDM 30 MIN Normal [facility] BEDSIDE GLUCOSEon 05-15-2025 Glucose [Mass/Vol] 320 mg/dL High 65-99 [facility] Comment on above: Performed By: #### B EDG ####[facility] ([address] [address] VIR Bedside Glucose *Place/Obtai n serum glucose if >500 per glucometer.on 05-15-2025 Glucose [Mass/Vol] 320 mg/dL High 65 - 99 mg/dL [facility] Interpretation and review of laboratory results Abnormal [facility] CBC WITH AUTO DIFFERENTIALon 05-15-2025 BASOPHILS ABSOLUTE COUNT (10*3/UL) BY AUTOMATED COUNT 0.0 10*3/uL Normal 0.0-0.2 [facility] Comment on above: Performed By: #### C BCA ####[facility] ([address] [address] VIR BASOPHILS RELATIVE PERCENT BY AUTOMATED COUNT 0.5 % Normal [facility] Comment on above: Performed By: #### C BCA ####[facility] ([address] [address] VIR CELLAVISION DIFFERENTIAL TYPE AUTOMATED DIFFERENTIAL Normal [facility] Comment on above: Performed By: #### C BCA ####[facility] ([address] [address] VIR Eosinophils (Bld) [#/Vol] 0.3 10*3/uL Normal 0.0-0.4 [facility] Comment on above: Performed By: #### C BCA ####[address] [address] VIR EOSINOPHILS RELATIVE PERCENT BY AUTOMATED COUNT 3.4 % Normal [facility] Comment on above: Performed By: #### C BCA ####[address] [address] VIR Erythrocyte distribution width (RBC) [Ratio] 15.5 % High 11.5-15 [facility] Comment on above: Performed By: #### C BCA ####[address] [address] VIR Hematocrit (Bld) [Volume fraction] 30.0 % Low 35-47 [facility] Comment on above: Performed By: #### C BCA ####[address] [address] VIR Hemoglobin (Bld) [Mass/Vol] 10.1 g/dL Low 11.7-15.5 [facility] Comment on above: Performed By: #### C BCA ####[address] [address] VIR LYMPHOCYTES ABSOLUTE COUNT (10*3/UL) BY AUTOMATED COUNT 1.7 10*3/uL Normal 1.0-3.5 [facility] Comment on above: Performed By: #### C BCA ####[facility] ([address] [address] VIR LYMPHOCYTES RELATIVE PERCENT BY AUTOMATED COUNT 19.9 % Normal [facility] Comment on above: Performed By: #### C BCA ####[facility] ([address] [place] [address] VIR MCH (RBC) [Entitic mass] 27.8 pg Normal 27-34 [facility] Comment on above: Performed By: #### C BCA ####[facility] ([address] [address] VIR MCHC (RBC) [Mass/Vol] 33.5 g/dL Normal 32-36 [facility] Comment on above: Performed By: #### C BCA ####[facility] ([address] [address] VIR MCV (RBC) [Entitic vol] 83 fL Normal 80-100 [facility] Comment on above: Performed By: #### C BCA ####[facility] ([address] [address] VIR MONOCYTES ABSOLUTE COUNT (10*3/UL) BY AUTOMATED COUNT 0.8 10*3/uL Normal 0.0-0.9 [facility] Comment on above: Performed By: #### C BCA ####[facility] ([address] [place] [address] VIR MONOCYTES RELATIVE PERCENT BY AUTOMATED COUNT 9.9 % Normal [facility] Comment on above: Performed By: #### C BCA ####[facility] ([address] [address] VIR NEUTROPHILS ABSOLUTE COUNT BY AUTOMATED COUNT 5.7 10*3/uL Normal 1.5-6.6 [facility] Comment on above: Performed By: #### C BCA ####[facility] ([place])[address] [place] [id number] VIR NEUTROPHILS RELATIVE PERCENT BY AUTOMATED COUNT 66.3 % Normal [facility] Comment on above: Performed By: #### C BCA ####[facility] ([address] [address] VIR Platelet mean volume (Bld) [Entitic vol] 8.7 fL Normal 7-12 [facility] Comment on above: Performed By: #### C BCA ####[facility] ([address] [address] VIR Platelets (Bld) [#/Vol] 196 10*3/uL Normal 150-450 [facility] Comment on above: Performed By: #### C BCA ####[facility] ([address] [address] VIR RBC COUNT 3.62 X10E12/L Low 3.8-5.2 [facility] Comment on above: Performed By: #### C BCA ####[facility] ([address] [address] VIR WBC (Bld) [#/Vol] 8.6 10*3/uL Normal 4-11 [facility] [facility] Comment on above: Performed By: #### C BCA ####[facility] ([address] [address] VIR CBC auto differentialon 07-0 -2024 Basophils (Bld) [#/Vol] 0 10*3/uL 0.0 - 0.2 10*3/uL [facility] Basophils/100 WBC (Bld) 0.5 % [facility] Differential cell count method Nom (Bld) AUTOMATED DIFFERENTIAL [facility] Eosinophils (Bld) [#/Vol] 0.3 10*3/uL 0.0 - 0.4 10*3/uL [facility] Eosinophils/100 WBC (Bld) 3.4 % [facility] Erythrocyte distribution width (RBC) [Ratio] 15.5 % High 11.5 - 15 % [facility] Hematocrit (Bld) [Volume fraction] 30 % Low 35 - 47 % [facility] Hemoglobin (Bld) [Mass/Vol] 10.1 g/dL Low 11.7 - 15.5 g/dL [facility] Interpretation and review of laboratory results Abnormal [facility] Lymphocytes (Bld) [#/Vol] 1.7 10*3/uL 1.0 - 3.5 10*3/uL [facility] Lymphocytes/100 WBC (Bld) 19.9 % [facility] MCH (RBC) [Entitic mass] 27.8 pg 27 - 34 pg [facility] MCHC (RBC) [Mass/Vol] 33.5 g/dL 32 - 36 g/dL [facility] MCV (RBC) [Entitic vol] 83 fL 80 - 100 fL [facility] Monocytes (Bld) [#/Vol] 0.8 10*3/uL 0.0 - 0.9 10*3/uL [facility] Monocytes/100 WBC (Bld) 9.9 % [facility] Neutrophils (Bld) [#/Vol] 5.7 10*3/uL 1.5 - 6.6 10*3/uL [facility] Neutrophils/100 WBC (Bld) 66.3 % [facility] Platelet mean volume (Bld) [Entitic vol] 8.7 fL 7 - 12 fL [facility] Platelets (Bld) [#/Vol] 196 10*3/uL [facility] RBC (Bld) [#/Vol] 3.62 10*6/uL Low [facility] WBC LM Ql (Sput) 8.6 [facility] COMPREHENSIVE METABOLIC PANE Dickson 05-15-2025 Albumin [Mass/Vol] 2.9 g/dL Low 3.2-5.3 [facility] Comment on above: Performed By: #### C MP ####[facility])[address] [place] [address].[place] [address] VIR ALP [Catalytic activity/Vol] 125 U/L Normal 39-130 [facility] Comment on above: Performed By: #### C MP ####[facility] ([place] [address] [address] VIR ALT [Catalytic activity/Vol] 14 U/L Normal <=31 [facility] Comment on above: Performed By: #### C MP ####[facility] ([address] [place] [address] VIR Anion gap [Moles/Vol] 8 mmol/L Normal 5-15 [facility] Comment on above: Performed By: #### C MP ####[facility] ([address] [place] [address] VIR AST [Catalytic activity/Vol] 17 U/L Normal <=41 [facility] Comment on above: Performed By: #### C MP ####[facility] ([address] [place] [address] VIR Bilirubin [Mass/Vol] 0.6 mg/dL Normal 0.3-1.2 [facility] Comment on above: Performed By: #### C MP ####[facility] ([address] [place] [address] VIR Calcium [Mass/Vol] 9.4 mg/dL Normal 8.5-10.5 [facility] Comment on above: Performed By: #### C MP ####[facility] ([address] [place] [address] VIR Chloride [Moles/Vol] 102 mmol/L Normal 98-109 [facility] Comment on above: Performed By: #### C MP ####[facility] ([address] [place] [address] VIR CO2 [Moles/Vol] 26 mmol/L Normal 22-32 [facility] Comment on above: Performed By: #### C MP ####[facility] ([address] [place] [address] VIR Creatinine [Mass/Vol] 1.20 mg/dL High 0.40-1.00 [facility] Comment on above: Result Comment: METH OD TRACEABLE TO IDMS STANDARD Performed By: #### C MP ####[facility] ([address] [place] [address] VIR GFR/1.73 sq M.predicted among non-blacks MDRD (S/P/Bld) [Vol rate/Area] 46 mL/min/{1.73_m2} Low >=60 [facility] Comment on above: Result Comment: eGFR not reported due to non-numeric value for Creatinine. Performed By: #### C MP ####[facility] ([address] [place] [address] VIR Glucose [Mass/Vol] 152 mg/dL High 65-99 [facility] Comment on above: Performed By: #### C MP ####[facility] ([address] [place] [address] VIR Potassium [Moles/Vol] 4.6 mmol/L Normal 3.5-5.0 [facility] Comment on above: Performed By: #### C MP ####[facility] ([address] [place] [address] VIR Protein [Mass/Vol] 7.0 g/dL Normal 6.0-8.0 [facility] Comment on above: Performed By: #### C MP ####[facility] ([address] [place] [address] VIR Sodium [Moles/Vol] 136 mmol/L Normal 134-146 [facility] Comment on above: Performed By: #### C MP ####[facility] ([address] [place] [address] VIR Urea nitrogen [Mass/Vol] 22 mg/dL Normal 5-27 [facility] Comment on above: Performed By: #### C MP ####[facility] ([facility]END[facility])[address] [facility], [place] [address] Comprehensive metabolic pane dickson 05-15-2025 Albumin [Mass/Vol] 2.9 g/dL Low 3.2 - 5.3 g/dL [facility] ALP [Catalytic activity/Vol] 125 U/L 39 - 130 U/L [facility] ALT No additional P-5'-P [Catalytic activity/Vol] 14 U/L NINF - 31 U/L [facility] Anion gap [Moles/Vol] 8 mmol/L 5 - 15 mmol/L [facility] AST [Catalytic activity/Vol] 17 U/L NINF - 41 U/L [facility] Bilirubin [Mass/Vol] 0.6 mg/dL 0.3 - 1.2 mg/dL [facility] Calcium [Mass/Vol] 9.4 mg/dL 8.5 - 10.5 mg/dL [facility] Chloride [Moles/Vol] 102 mmol/L 98 - 109 mmol/L [facility] CO2 [Moles/Vol] 26 mmol/L 22 - 32 mmol/L [facility] Creatinine [Mass/Vol] 1.2 mg/dL High 0.40 - 1.00 mg/dL [facility] Comment on above: METHOD TRACEABLE TO IDMS STANDARD EGFR Non-Race Dependent 46 Low - PINF [facility] Comment on above: eGFR not reported du e to non-numeric value for Creatinine. Glucose [Mass/Vol] 152 mg/dL High 65 - 99 mg/dL [facility] Interpretation and review of laboratory results Abnormal [facility] Potassium [Moles/Vol] 4.6 mmol/L 3.5 - 5.0 mmol/L [facility] Protein [Mass/Vol] 7 g/dL 6.0 - 8.0 g/dL [facility] Sodium [Moles/Vol] 136 mmol/L 134 - 146 mmol/L [facility] Urea nitrogen [Mass/Vol] 22 mg/dL 5 - 27 mg/dL [facility] MAGNESIUMon 05-15-2025 Magnesium [Mass/Vol] 2.0 mg/dL Normal 1.8-2.6 [facility] Comment on above: Performed By: #### M G ####[facility] ([address] [address] VIR Magnesiumon 05-15-2025 Interpretation and review of laboratory results Normal [facility] Magnesium [Mass/Vol] 2 mg/dL 1.8 - 2.6 mg/dL [facility] SST TOPon 05-15-2025 Extra Tube Auto Resulted [facility] BEDSIDE GLUCOSEon 05-14-2025 Glucose [Mass/Vol] 286 mg/dL High [address] [place] [address] Comment on above: Performed By: #### B EDG ####[facility] ([address] [address] VIR Glucose [Mass/Vol] 308 mg/dL High [address] [place] [address] Comment on above: Performed By: #### B EDG ####[facility] ([address] [address] VIR Glucose [Mass/Vol] 223 mg/dL High [address] [place] [address] Comment on above: Performed By: #### B EDG ####[facility] ([address] [address] VIR Bedside Glucose *Place/Obtai n serum glucose if >500 per glucometer.on 05-14-2025 Glucose [Mass/Vol] 286 mg/dL High 65 - 99 mg/dL [facility] Interpretation and review of laboratory results Abnormal [facility] Glucose [Mass/Vol] 308 mg/dL High 65 - 99 mg/dL [facility] Interpretation and review of laboratory results Abnormal [facility] Glucose [Mass/Vol] 223 mg/dL High 65 - 99 mg/dL [facility] Interpretation and review of laboratory results Abnormal [facility] CBC WITH AUTO DIFFERENTIALon 05-14-2025 BASOPHILS ABSOLUTE COUNT (10*3/UL) BY AUTOMATED COUNT 0.1 10*3/uL Normal 0.0-0.2 [facility] Comment on above: Performed By: #### C BCA ####[facility] (PENDING S[facility] TO [facility])[address] [place] [address] VIR BASOPHILS RELATIVE PERCENT BY AUTOMATED COUNT 0.7 % Normal [facility] Comment on above: Performed By: #### C BCA ####[facility] (PENDING S[facility])[address] [place] [address] VIR CELLAVISION DIFFERENTIAL TYPE AUTOMATED DIFFERENTIAL Normal [facility] Comment on above: Performed By: #### C BCA ####[facility] ([address] [address] VIR Eosinophils (Bld) [#/Vol] 0.5 10*3/uL High 0.0-0.4 [facility] Comment on above: Performed By: #### C BCA ####[facility] ([address] [address] VIR EOSINOPHILS RELATIVE PERCENT BY AUTOMATED COUNT 6.6 % Normal [facility] Comment on above: Performed By: #### C BCA ####[facility] ([address] [address] VIR Erythrocyte distribution width (RBC) [Ratio] 15.5 % High 11.5-15 [facility] Comment on above: Performed By: #### C BCA ####[facility] ([address] [address] VIR Hematocrit (Bld) [Volume fraction] 30.6 % Low 35-47 [facility] Comment on above: Performed By: #### C BCA ####[facility] ([address] [address] VIR Hemoglobin (Bld) [Mass/Vol] 10.3 g/dL Low 11.7-15.5 [facility] Comment on above: Performed By: #### C BCA ####[facility] ([address] [address] VIR LYMPHOCYTES ABSOLUTE COUNT (10*3/UL) BY AUTOMATED COUNT 1.8 10*3/uL Normal 1.0-3.5 [facility] Comment on above: Performed By: #### C BCA ####[facility] ([address] [address] VIR LYMPHOCYTES RELATIVE PERCENT BY AUTOMATED COUNT 23.9 % Normal [facility] Comment on above: Performed By: #### C BCA ####[facility] ([address] [address] VIR MCH (RBC) [Entitic mass] 28.1 pg Normal 27-34 [facility] Comment on above: Performed By: #### C BCA ####[facility] ([address] [address] VIR MCHC (RBC) [Mass/Vol] 33.5 g/dL Normal 32-36 [facility] Comment on above: Performed By: #### C BCA ####[facility] ([address] [address] VIR MCV (RBC) [Entitic vol] 84 fL Normal 80-100 [facility] Comment on above: Performed By: #### C BCA ####[facility] ([address] [address] VIR MONOCYTES ABSOLUTE COUNT (10*3/UL) BY AUTOMATED COUNT 1.0 10*3/uL High 0.0-0.9 [facility] Comment on above: Performed By: #### C BCA ####[facility] ([address] [address] VIR MONOCYTES RELATIVE PERCENT BY AUTOMATED COUNT 12.9 % Normal [facility] Comment on above: Performed By: #### C BCA ####[facility] ([address] [address] VIR NEUTROPHILS ABSOLUTE COUNT BY AUTOMATED COUNT 4.2 10*3/uL Normal 1.5-6.6 [facility] Comment on above: Performed By: #### C BCA ####[facility] ([address] [address] VIR NEUTROPHILS RELATIVE PERCENT BY AUTOMATED COUNT 55.9 % Normal [facility] Comment on above: Performed By: #### C BCA ####[facility] ([address] [address] VIR Platelet mean volume (Bld) [Entitic vol] 8.7 fL Normal 7-12 [facility] Comment on above: Performed By: #### C BCA ####[facility] ([address] [address] VIR Platelets (Bld) [#/Vol] 166 10*3/uL Normal 150-450 [facility] Comment on above: Performed By: #### C BCA ####[facility] ([address] [address] VIR RBC COUNT 3.65 X10E12/L Low 3.8-5.2 [facility] Comment on above: Performed By: #### C BCA ####[facility] ([address] [address] VIR WBC (Bld) [#/Vol] 7.6 10*3/uL Normal 4-11 [facility] Comment on above: Performed By: #### C BCA ####[facility] ([address] [address] VIR CBC auto differentialon -3 0-5 Basophils (Bld) [#/Vol] 0.1 10*3/uL 0.0 - 0.2 10*3/uL [facility] Basophils/100 WBC (Bld) 0.7 % [facility] Differential cell count method Nom (Bld) AUTOMATED DIFFERENTIAL [facility] Eosinophils (Bld) [#/Vol] 0.5 10*3/uL High 0.0 - 0.4 10*3/uL [facility] Eosinophils/100 WBC (Bld) 6.6 % [facility] Erythrocyte distribution width (RBC) [Ratio] 15.5 % High 11.5 - 15 % [facility] Hematocrit (Bld) [Volume fraction] 30.6 % Low 35 - 47 % [facility] Hemoglobin (Bld) [Mass/Vol] 10.3 g/dL Low 11.7 - 15.5 g/dL [facility] Interpretation and review of laboratory results Abnormal [facility] Lymphocytes (Bld) [#/Vol] 1.8 10*3/uL 1.0 - 3.5 10*3/uL [facility] Lymphocytes/100 WBC (Bld) 23.9 % [facility] MCH (RBC) [Entitic mass] 28.1 pg 27 - 34 pg [facility] MCHC (RBC) [Mass/Vol] 33.5 g/dL 32 - 36 g/dL [facility] MCV (RBC) [Entitic vol] 84 fL 80 - 100 fL [facility] Monocytes (Bld) [#/Vol] 1 10*3/uL High 0.0 - 0.9 10*3/uL [facility] Monocytes/100 WBC (Bld) 12.9 % [facility] Neutrophils (Bld) [#/Vol] 4.2 10*3/uL 1.5 - 6.6 10*3/uL [facility] Neutrophils/100 WBC (Bld) 55.9 % [facility] Platelet mean volume (Bld) [Entitic vol] 8.7 fL 7 - 12 fL [facility] Platelets (Bld) [#/Vol] 166 10*3/uL [facility] RBC (Bld) [#/Vol] 3.65 10*6/uL Low [facility] WBC LM Ql (Sput) 7.6 [facility] COMPREHENSIVE METABOLIC PANE Dickson 05-14-2025 Albumin [Mass/Vol] 2.9 g/dL Low 3.2-5.3 [facility] Comment on above: Performed By: #### C MP ####[facility] ([facility] [address] VIR ALP [Catalytic activity/Vol] 128 U/L Normal 39-130 [facility] Comment on above: Performed By: #### C MP ####[facility] ([facility] [place] [address] VIR ALT [Catalytic activity/Vol] 14 U/L Normal <=31 [facility] Comment on above: Performed By: #### C MP ####[facility] ([place] [address] [place] [address] VIR Anion gap [Moles/Vol] 9 mmol/L Normal 5-15 [facility] Comment on above: Performed By: #### C MP ####[facility] ([address] [place] [address] VIR AST [Catalytic activity/Vol] 23 U/L Normal <=41 [facility] Comment on above: Performed By: #### C MP ####[facility] ([place] [address] [address] VIR Bilirubin [Mass/Vol] 0.6 mg/dL Normal 0.3-1.2 [facility] Comment on above: Performed By: #### C MP ####[facility] ([place] [address] [address] VIR Calcium [Mass/Vol] 9.0 mg/dL Normal 8.5-10.5 [facility] Comment on above: Performed By: #### C MP ####[facility] ([place] [address] [address] VIR Chloride [Moles/Vol] 108 mmol/L Normal 98-109 [facility] Comment on above: Performed By: #### C MP ####[facility] ([address] [address] VIR CO2 [Moles/Vol] 22 mmol/L Normal 22-32 [facility] Comment on above: Performed By: #### C MP ####[facility] ([address] [address] VIR Creatinine [Mass/Vol] 1.30 mg/dL High 0.40-1.00 [facility] Comment on above: Result Comment: METH OD TRACEABLE TO IDMS STANDARD Performed By: #### C MP ####[facility] ([address] [address] VIR GFR/1.73 sq M.predicted among non-blacks MDRD (S/P/Bld) [Vol rate/Area] 42 mL/min/{1.73_m2} Low >=60 [facility] Comment on above: Result Comment: eGFR not reported due to non-numeric value for Creatinine. Performed By: #### C MP ####[facility] ([address] [address] VIR Glucose [Mass/Vol] 148 mg/dL High 65-99 [facility] Comment on above: Performed By: #### C MP ####[facility] ([address] [address] VIR Potassium [Moles/Vol] 4.4 mmol/L Normal 3.5-5.0 [facility] Comment on above: Performed By: #### C MP ####[facility] ([address] [address] VIR Protein [Mass/Vol] 6.6 g/dL Normal 6.0-8.0 [facility] Comment on above: Performed By: #### C MP ####[facility] (PENDING S[facility])[address] [place] [address] VIR Sodium [Moles/Vol] 139 mmol/L Normal 134-146 [facility] Comment on above: Performed By: #### C MP ####[facility] (PEND[facility])[address] [place] [address] VIR Urea nitrogen [Mass/Vol] 27 mg/dL Normal 5-27 [facility] Comment on above: Performed By: #### C MP ####[facility] ([facility])[address] [place] [address] BRAIN WO CONTon CT BRAIN WO CONT Normal [facility] CT Head WO contraston 2024 STUDY: CT HEAD WITHOUT CONTRAST CLINICAL HISTORY: [...] Blu Miller MD on 05/14/2025 12:24 PM SECTRAPACS Blu Miller MD - 05/14/2025 STUDY: CT [...] Blu Miller MD on 05/14/2025 12:24 PM [facility] Radiology Study observation (narrative) [facility] CT Head WO contrastOrdered B y: Blu Miller on 05-14-2025 [facility] Work Phone: Comprehensive metabolic pane dickson 05-14-2025 Albumin [Mass/Vol] 2.9 g/dL Low 3.2 - 5.3 g/dL [facility] ALP [Catalytic activity/Vol] 128 U/L 39 - 130 U/L [facility] ALT No additional P-5'-P [Catalytic activity/Vol] 14 U/L NINF - 31 U/L [facility] Anion gap [Moles/Vol] 9 mmol/L 5 - 15 mmol/L [facility] AST [Catalytic activity/Vol] 23 U/L NINF - 41 U/L [facility] Bilirubin [Mass/Vol] 0.6 mg/dL 0.3 - 1.2 mg/dL [facility] Calcium [Mass/Vol] 9 mg/dL 8.5 - 10.5 mg/dL [facility] Chloride [Moles/Vol] 108 mmol/L 98 - 109 mmol/L [facility] CO2 [Moles/Vol] 22 mmol/L 22 - 32 mmol/L [facility] Creatinine [Mass/Vol] 1.3 mg/dL High 0.40 - 1.00 mg/dL [facility] Comment on above: METHOD TRACEABLE TO IDMS STANDARD EGFR Non-Race Dependent 42 Low - PINF [facility] Comment on above: eGFR not reported du e to non-numeric value for Creatinine. Glucose [Mass/Vol] 148 mg/dL High 65 - 99 mg/dL [facility] Interpretation and review of laboratory results Abnormal [facility] Potassium [Moles/Vol] 4.4 mmol/L 3.5 - 5.0 mmol/L [facility] Protein [Mass/Vol] 6.6 g/dL 6.0 - 8.0 g/dL [facility] Sodium [Moles/Vol] 139 mmol/L 134 - 146 mmol/L [facility] Urea nitrogen [Mass/Vol] 27 mg/dL 5 - 27 mg/dL [facility] MAGNESIUMon 05-14-2025 Magnesium [Mass/Vol] 2.1 mg/dL Normal 1.8-2.6 [facility] Comment on above: Performed By: #### M G ####[facility] ([address] [address] VIR Magnesium [Mass/Vol] 1.6 mg/dL Low 1.8-2.6 [facility] Comment on above: Performed By: #### M G ####[facility] ([address] [address] VIR Magnesiumon 05-14-2025 Interpretation and review of laboratory results Normal [facility] Magnesium [Mass/Vol] 2.1 mg/dL 1.8 - 2.6 mg/dL [facility] Interpretation and review of laboratory results Abnormal [facility] Magnesium [Mass/Vol] 1.6 mg/dL Low 1.8 - 2.6 mg/dL [facility] APTTon 05-13-2025 aPTT Coag (PPP) [Time] 30 s [facility] Interpretation and review of laboratory results Normal [facility] aPTT Coag (Bld) [Time] 30 s Normal 26-37 [facility] Comment on above: Performed By: #### P TT ####[address] [address] VIR B-TYPE NATRIURETIC PEPTIDEon 05-13-2025 Natriuretic peptide B (Bld) [Mass/Vol] 602 pg/mL High <=100 [facility] Comment on above: Performed By: #### B CUE WORKER ####[facility] (PENDING S[facility])[address] [place] [address] VIR B-type natriuretic peptideOr dered By: Haven Tao on 05-13-2025 Interpretation and review of laboratory results Abnormal [facility] Natriuretic peptide B (Bld) [Mass/Vol] 602 pg/mL High NINF - 100 pg/mL [facility] BEDSIDE GLUCOSEon 05-13-2025 Glucose [Mass/Vol] 256 mg/dL High 65-99 [facility] Comment on above: Performed By: #### B EDG ####[facility] ([address] [address] VIR Glucose [Mass/Vol] 384 mg/dL High 65-99 [facility] Comment on above: Performed By: #### B EDG ####[facility] ([address] [address] VIR BLOOD CULTUREon 05-13-2025 Bacteria identified Cx Nom (Bld) CULTURE RESULTS NO GROWTH 5 DAYS Normal [facility] Comment on above: Order Comment: *SIRS Criteria: (must display 2 without other explanation)-Temperature < 36 or >38-Pulse >90-Resp rate >20-WBC less than 4K or greater than 12KRepeat blood cultures not needed:-To document that a blood culture is a contaminant when 1 of 2 bottles is positive for a common contaminant (already listed in Epic with the culture result)-To document clearance of gram negative bacteremia in patients with suspected urinary source who are improving Performed By: #### B C ####[facility] ([facility])[address], [place] [address] VIR Bacteria identified Cx Nom (Bld) CULTURE RESULTS NO GROWTH 5 DAYS Normal [facility] Comment on above: Order Comment: *SIRS Criteria: (must display 2 without other explanation)-Temperature < 36 or >38-Pulse >90-Resp rate >20-WBC less than 4K or greater than 12KRepeat blood cultures not needed:-To document that a blood culture is a contaminant when 1 of 2 bottles is positive for a common contaminant (already listed in Epic with the culture result)-To document clearance of gram negative bacteremia in patients with suspected urinary source who are improvingOnly aerobic bottle received Performed By: #### B C ####[facility] ([facility])[address], [place] [address] VIR BLOOD GAS, ARTERIALon 2024 BASE,DEFICIT -3.0 mmol/L Low 0.0-2.0 [facility] Comment on above: Performed By: #### A BG ####[facility] ([address] [address] VIR HCO3 (Bld) [Moles/Vol] 22.8 mmol/L Normal 22.0-26.0 [facility] Comment on above: Performed By: #### A BG ####[address] [address] VIR Oxygen saturation in Blood 92.0 % Normal >90.0 [facility] Comment on above: Performed By: #### A BG ####[address] [address] VIR PCO2 ARTERIAL 41.4 mmHg Normal 35.0-45.0 [facility] Comment on above: Performed By: #### A BG ####[facility] ([address] [address] VIR PH ARTERIAL 7.349 Low 7.350-7.45 0 [facility] Comment on above: Performed By: #### A BG ####[address] [address] VIR PO2 ARTERIAL 67 mmHg Low 80-100 [facility] Comment on above: Performed By: #### A BG ####[facility] ([address] [address] VIR POC TATO'S TEST N/A Normal [facility] Comment on above: Performed By: #### A BG ####[facility] ([address] [place] [address] VIR SAMPLE SITE L Rad Normal [facility] Comment on above: Performed By: #### A BG ####[facility] ([address] [place] [address] VIR SAMPLE TYPE ARTERIAL Normal [facility] Comment on above: Performed By: #### A BG ####[facility] ([address] [place] [address] VIR SOURCE OF OXYGEN NC Normal [facility] Comment on above: Performed By: #### A BG ####[facility] ([address] [place] [address] VIR Bedside Glucose *Place/Obtai n serum glucose if >500 per glucometer.on 05-13-2025 Glucose [Mass/Vol] 256 mg/dL High 65 - 99 mg/dL [facility] Interpretation and review of laboratory results Abnormal [facility] Glucose [Mass/Vol] 384 mg/dL High 65 - 99 mg/dL [facility] Interpretation and review of laboratory results Abnormal [facility] C-REACTIVE PROTEINon 025 C REACTIVE PROTEIN 6.1 mg/dL High <=0.7 [facility] Comment on above: Performed By: #### C RP ####[facility] ([address] [place] [address] VIR C-reactive proteinon 025 CRP [Mass/Vol] 6.1 mg/dL High NINF - 0.7 mg/dL [facility] Interpretation and review of laboratory results Abnormal [facility] CBC WITH AUTO DIFFERENTIALon 05-13-2025 BASOPHILS ABSOLUTE COUNT (10*3/UL) BY AUTOMATED COUNT 0.1 10*3/uL Normal 0.0-0.2 [facility] Comment on above: Performed By: #### C BCA ####[facility] ([address] [address] VIR BASOPHILS RELATIVE PERCENT BY AUTOMATED COUNT 0.6 % Normal [facility] Comment on above: Performed By: #### C BCA ####[facility] ([address] [address] VIR CELLAVISION DIFFERENTIAL TYPE AUTOMATED DIFFERENTIAL Normal [facility] Comment on above: Performed By: #### C BCA ####[facility] ([address] [address] VIR Eosinophils (Bld) [#/Vol] 0.1 10*3/uL Normal 0.0-0.4 [facility] Comment on above: Performed By: #### C BCA ####[facility] ([address] [address] VIR EOSINOPHILS RELATIVE PERCENT BY AUTOMATED COUNT 1.6 % Normal [facility] Comment on above: Performed By: #### C BCA ####[facility] ([address] [address] VIR Erythrocyte distribution width (RBC) [Ratio] 15.8 % High 11.5-15 [facility] Comment on above: Performed By: #### C BCA ####[facility] ([address] [address] VIR Hematocrit (Bld) [Volume fraction] 36.0 % Normal 35-47 [facility] Comment on above: Performed By: #### C BCA ####[facility] ([address] [address] VIR Hemoglobin (Bld) [Mass/Vol] 11.8 g/dL Normal 11.7-15.5 [facility] Comment on above: Performed By: #### C BCA ####[facility] ([address] [address] VIR LYMPHOCYTES ABSOLUTE COUNT (10*3/UL) BY AUTOMATED COUNT 1.7 10*3/uL Normal 1.0-3.5 [facility] Comment on above: Performed By: #### C BCA ####[facility] ([address] [address] VIR LYMPHOCYTES RELATIVE PERCENT BY AUTOMATED COUNT 18.7 % Normal [facility] Comment on above: Performed By: #### C BCA ####[facility] ([address] [address] VIR MCH (RBC) [Entitic mass] 27.5 pg Normal 27-34 [facility] Comment on above: Performed By: #### C BCA ####[facility] ([address] [address] VIR MCHC (RBC) [Mass/Vol] 32.7 g/dL Normal 32-36 [facility] Comment on above: Performed By: #### C BCA ####[facility] ([address] [address] VIR MCV (RBC) [Entitic vol] 84 fL Normal 80-100 [facility] Comment on above: Performed By: #### C BCA ####[facility] ([address] [place] [address] VIR MONOCYTES ABSOLUTE COUNT (10*3/UL) BY AUTOMATED COUNT 0.9 10*3/uL Normal 0.0-0.9 [facility] Comment on above: Performed By: #### C BCA ####[facility] ([address] [address] VIR MONOCYTES RELATIVE PERCENT BY AUTOMATED COUNT 10.3 % Normal [facility] Comment on above: Performed By: #### C BCA ####[facility] ([address] [place] [address] VIR NEUTROPHILS ABSOLUTE COUNT BY AUTOMATED COUNT 6.2 10*3/uL Normal 1.5-6.6 [facility] Comment on above: Performed By: #### C BCA ####[facility] ([address] [address] VIR NEUTROPHILS RELATIVE PERCENT BY AUTOMATED COUNT 68.8 % Normal [facility] Comment on above: Performed By: #### C BCA ####[facility] ([address] [address] VIR Platelet mean volume (Bld) [Entitic vol] 8.4 fL Normal 7-12 [facility] Comment on above: Performed By: #### C BCA ####[facility] ([address] [address] VIR Platelets (Bld) [#/Vol] 266 10*3/uL Normal 150-450 [facility] Comment on above: Performed By: #### C BCA ####[facility] ([address] [address] VIR RBC COUNT 4.27 X10E12/L Normal 3.8-5.2 [facility] Comment on above: Performed By: #### C BCA ####[facility] ([address] [address] VIR WBC (Bld) [#/Vol] 9.0 10*3/uL Normal 4-11 [facility] Comment on above: Performed By: #### C BCA ####[facility] ([address] [address] VIR CBC auto differentialon 04-16 Basophils (Bld) [#/Vol] 0.1 10*3/uL 0.0 - 0.2 10*3/uL [facility] Basophils/100 WBC (Bld) 0.6 % [facility] Differential cell count method Nom (Bld) AUTOMATED DIFFERENTIAL [facility] Eosinophils (Bld) [#/Vol] 0.1 10*3/uL 0.0 - 0.4 10*3/uL [facility] Eosinophils/100 WBC (Bld) 1.6 % [facility] Erythrocyte distribution width (RBC) [Ratio] 15.8 % High 11.5 - 15 % [facility] Hematocrit (Bld) [Volume fraction] 36 % 35 - 47 % [facility] Hemoglobin (Bld) [Mass/Vol] 11.8 g/dL 11.7 - 15.5 g/dL [facility] Interpretation and review of laboratory results Abnormal [facility] Lymphocytes (Bld) [#/Vol] 1.7 10*3/uL 1.0 - 3.5 10*3/uL [facility] Lymphocytes/100 WBC (Bld) 18.7 % [facility] MCH (RBC) [Entitic mass] 27.5 pg 27 - 34 pg [facility] MCHC (RBC) [Mass/Vol] 32.7 g/dL 32 - 36 g/dL [facility] MCV (RBC) [Entitic vol] 84 fL 80 - 100 fL [facility] Monocytes (Bld) [#/Vol] 0.9 10*3/uL 0.0 - 0.9 10*3/uL [facility] Monocytes/100 WBC (Bld) 10.3 % [facility] Neutrophils (Bld) [#/Vol] 6.2 10*3/uL 1.5 - 6.6 10*3/uL [facility] Neutrophils/100 WBC (Bld) 68.8 % [facility] Platelet mean volume (Bld) [Entitic vol] 8.4 fL 7 - 12 fL [facility] Platelets (Bld) [#/Vol] 266 10*3/uL [facility] RBC (Bld) [#/Vol] 4.27 10*6/uL [facility] WBC LM Ql (Sput) 9 [facility] COMPREHENSIVE METABOLIC PANE Dickson 05-13-2025 Albumin [Mass/Vol] 3.6 g/dL Normal 3.2-5.3 [facility] Comment on above: Performed By: #### C MP ####[facility] ([address] [place] [address] VIR ALP [Catalytic activity/Vol] 160 U/L High 39-130 [facility] Comment on above: Performed By: #### C MP ####[facility] ([address] [place] [address] VIR ALT [Catalytic activity/Vol] 18 U/L Normal <=31 [facility] Comment on above: Performed By: #### C MP ####[facility] ([address] [place] [address] VIR Anion gap [Moles/Vol] 10 mmol/L Normal 5-15 [facility] Comment on above: Performed By: #### C MP ####[facility] ([address] [place] [address] VIR AST [Catalytic activity/Vol] 31 U/L Normal <=41 [facility] Comment on above: Performed By: #### C MP ####[facility] ([address] [place] [address] VIR Bilirubin [Mass/Vol] 0.5 mg/dL Normal 0.3-1.2 [facility] Comment on above: Performed By: #### C MP ####[facility] ([address] [place] [address] VIR Calcium [Mass/Vol] 9.5 mg/dL Normal 8.5-10.5 [facility] Comment on above: Performed By: #### C MP ####[facility] ([address] [place] [address] VIR Chloride [Moles/Vol] 101 mmol/L Normal 98-109 [facility] Comment on above: Performed By: #### C MP ####[facility] ([address] [place] [address] VIR CO2 [Moles/Vol] 23 mmol/L Normal 22-32 [facility] Comment on above: Performed By: #### C MP ####[facility] ([address] [place] [address] VIR Creatinine [Mass/Vol] 1.41 mg/dL High 0.40-1.00 [facility] Comment on above: Result Comment: METH OD TRACEABLE TO IDMS STANDARD Performed By: #### C MP ####[facility] ([address] [place] [address] VIR GFR/1.73 sq M.predicted among non-blacks MDRD (S/P/Bld) [Vol rate/Area] 38 mL/min/{1.73_m2} Low >=60 [facility] Comment on above: Result Comment: eGFR not reported due to non-numeric value for Creatinine.Reported eGFR is based on theCKD-EPI 1 equation that doesnot use a race coefficient. Performed By: #### C MP ####[facility] ([address] [place] [address] VIR Glucose [Mass/Vol] 300 mg/dL High 65-99 [facility] Comment on above: Performed By: #### C MP ####[facility] ([address] [place] [address] VIR Potassium [Moles/Vol] 4.7 mmol/L Normal 3.5-5.0 [facility] Comment on above: Performed By: #### C MP ####[facility] ([address] [place] [address] VIR Protein [Mass/Vol] 8.2 g/dL High 6.0-8.0 [facility] Comment on above: Performed By: #### C MP ####[facility] ([address] [place] [address] VIR Sodium [Moles/Vol] 134 mmol/L Normal 134-146 [facility] Comment on above: Performed By: #### C MP ####[facility] (PENDING SALE TO [facility])[address] [place] [address] VIR Urea nitrogen [Mass/Vol] 31 mg/dL High 5-27 [facility] Comment on above: Performed By: #### C MP ####[facility] (PENDING S[facility] TO [facility])[address] [address] HIP RT WO CONTon 05-13-[address] HIP RT WO CONT [facility] - right WO contraston 05-13-2025 Study: CT right hip History:Pain sepsis Protocol:CT [...] Chester Parra MD on 05/13/2025 1:01 PM [facility] Chester Parra M D - 05/13/2025 Study: CT right hip History:Pain [...] Chester Parra MD on 05/13/2025 1:01 PM [facility] Radiology Study observation (narrative) [facility] CT Hip - right WO contrastOr dered By: Chester Parra on 05-13-2025 [facility] Work Phone: Comprehensive metabolic pane dickson 05-13-2025 Albumin [Mass/Vol] 3.6 g/dL 3.2 - 5.3 g/dL [facility] ALP [Catalytic activity/Vol] 160 U/L High 39 - 130 U/L [facility] ALT No additional P-5'-P [Catalytic activity/Vol] 18 U/L NINF - 31 U/L [facility] Anion gap [Moles/Vol] 10 mmol/L 5 - 15 mmol/L [facility] AST [Catalytic activity/Vol] 31 U/L NINF - 41 U/L [facility] Bilirubin [Mass/Vol] 0.5 mg/dL 0.3 - 1.2 mg/dL [facility] Calcium [Mass/Vol] 9.5 mg/dL 8.5 - 10.5 mg/dL [facility] Chloride [Moles/Vol] 101 mmol/L 98 - 109 mmol/L [facility] CO2 [Moles/Vol] 23 mmol/L 22 - 32 mmol/L [facility] Creatinine [Mass/Vol] 1.41 mg/dL High 0.40 - 1.00 mg/dL [facility] Comment on above: METHOD TRACEABLE TO IDMS STANDARD EGFR Non-Race Dependent 38 Low - PINF [facility] Comment on above: eGFR not reported du e to non-numeric value for Creatinine. Reported eGFR is based on the CKD-EPI 2020 equation that does not use a race coefficient. Glucose [Mass/Vol] 300 mg/dL High 65 - 99 mg/dL [facility] Interpretation and review of laboratory results Abnormal [facility] Potassium [Moles/Vol] 4.7 mmol/L 3.5 - 5.0 mmol/L [facility] Protein [Mass/Vol] 8.2 g/dL High 6.0 - 8.0 g/dL [facility] Sodium [Moles/Vol] 134 mmol/L 134 - 146 mmol/L [facility] Urea nitrogen [Mass/Vol] 31 mg/dL High 5 - 27 mg/dL [facility] Critical Careon 05-13-2025 Jack Milligan DO 04/17 10:54 PM Critical Care Performed by: Jack [...] specialty: yes Care discussed with: admitting provider [facility] ECG 12 leadOrdered By: Jeaneth Quesada on 05-13-2025 [facility] Gas panel (BldA)on Arterial patency Wrist artery --pre arterial puncture N/A [facility] Base deficit (Bld) [Moles/Vol] -3 mmol/L Low 0.0 - 2.0 mmol/L [facility] CO2 (Bld) [Partial pressure] 41.4 mm[Hg] [facility] HCO3 (Bld) [Moles/Vol] 22.8 mmol/L 22.0 - 26.0 mmol/L [facility] Interpretation and review of laboratory results Abnormal [facility] Oxygen (Bld) [Partial pressure] 67 mm[Hg] Low [facility] Oxygen therapy source and amount [CARE] NC [facility] pH (Bld) 7.349 [pH] Low 7.350 - 7.450 [facility] Specimen site Narrative L Rad [facility] Specimen type Nom (Spec) ARTERIAL [facility] HEMOGLOBINon 05-13-2025 Hemoglobin (Bld) [Mass/Vol] 11.5 g/dL Low 11.7-15.5 [facility] Comment on above: Performed By: #### H GB ####[facility] ([address] [address] VIR Hemoglobinon 05-13-2025 Hemoglobin (Bld) [Mass/Vol] 11.5 g/dL Low 11.7 - 15.5 g/dL [facility] Interpretation and review of laboratory results Abnormal [facility] LACTATE W/ REFLEXon 05-13-20 25 LACTATE W/REFLEX 1.5 mmol/L Normal 0.4-2.[address] [facility] Comment on above: Order Comment: Resul t did not trigger repeat Lactate,re-order if needed. Performed By: #### L ACTS ####[facility] ([address] [address] VIR Lactate w/ Reflexon 05-13-20 25 Interpretation and review of laboratory results Normal [facility] Lactate (P obed) [Moles/Vol] 1.5 mmol/L 0.4 - 2.0 mmol/L [facility] Result did not toñito er repeat Lactate, re-order if needed. [facility] Light Blue Topon 05-13-2025 Extra Tube Auto Resulted [facility] No Panel Informationon 05-13 [facility] PLATELET COUNTon 05-13-2025 Platelet mean volume (Bld) [Entitic vol] 8.3 fL Normal 7-12 [facility] Comment on above: Performed By: #### P LTCT ####[facility] (PENDING SALE TO [facility])[address] [place] [address].[place] [address] VIR Platelets (Bld) [#/Vol] 214 10*3/uL Normal 150-450 [facility] Comment on above: Performed By: #### P LTCT ####[facility] (PENDING SALE TO [facility])[address] [place] [address] VIR PROCALCITONINon 05-13-2025 PROCALCITONIN 0.05 ng/mL High <0.05 [facility] Comment on above: Order Comment: <0.50 ng/mL - Low risk of severe sepsis and/or septic shock.<2.00 ng/mL - Recommend retesting within 6-24 hours.>2.00 ng/mL - High risk of sepsis and/or septic shock. Performed By: #### P ROSALBA ####[facility] ([address] [address] VIR PST TOPon 05-13-2025 Extra Tube Auto Resulted [facility] Platelet counton 05-13-2025 Interpretation and review of laboratory results Normal [facility] Platelet mean volume (Bld) [Entitic vol] 8.3 fL 7 - 12 fL [facility] Platelets (Bld) [#/Vol] 214 10*3/uL [facility] Procalcitoninon 05-13-2025 Interpretation and review of laboratory results Abnormal [facility] Procalcitonin IA [Mass/Vol] 0.05 ng/mL High NINF - 0.05 ng/mL [facility] <0.50 ng/mL - Low ri sk of severe sepsis and/or septic shock. <2.00 ng/mL - Recommend retesting within 6-24 hours. >2.00 ng/mL - High risk of sepsis and/or septic shock. [facility] TROP I, HIGH SENSITIVITY 1 H OURon 29-2025 TROPONIN I, HIGH SENSITIVITY 26 ng/L High <16 [facility] Comment on above: Order Comment: Clatonia tions of hs-Troponin may be due to causesother than myocardial ischemia.Recommend serial hs-Troponin testing be performed.For the initial evaluation and management of chestpain patients, refer to the algorithms linked below.Emergency Patient:[email or web address]:[email or web address] Performed By: #### T NIHS1 ####[facility] ([address] [address] VIR TROPONIN I, HIGH SENSITIVITY 0 HOURon 05-13-2025 TROPONIN I, HIGH SENSITIVITY 35 ng/L High <16 [facility] Comment on above: Performed By: #### T NIHS0 ####[facility] ([address] [address] VIR Troponin I, High Sensitivity 0 Houron 05-13-2025 Interpretation and review of laboratory results Abnormal [facility] Troponin I.cardiac High sensitivity method [Mass/Vol] 35 ng/L High NINF - 16 ng/L [facility] Troponin I, High Sensitivity 1 Houron 05-13-2025 Interpretation and review of laboratory results Abnormal [facility] Troponin I.cardiac High sensitivity method [Mass/Vol] 26 ng/L High NINF - 16 ng/L [facility] Elevations of hs-Tro ponin may be due to causes other than myocardial ischemia. Recommend serial hs-Troponin testing be performed. For the initial evaluation and management of chest pain patients, refer to the algorithms linked below. Emergency Patient: [email or web address] Inpatient: [email or web address] [facility] XR CHEST 1 VWon 05-13-2025 XR CHEST 1 VW Normal [facility] XR Chest Single viewon 05-13 Berry Chavez MD - 05/13/2025 Procedure: Chest x-ray performed Number of views:1 History:Shortness of breath Comparison:04/28/2025 Findings: The heart and lungs show no acute findings, and the mediastinum and stanley are grossly negative . Tube overlying right chest stable. Impression: 1. No acute change. Finalized by Berry Chavez MD on 05/13/2025 11:01 AM [facility] Radiology Study observation (narrative) [facility] XR Chest Single viewOrdered By: Berry Chavez on 05-13-2025 [facility] Work Phone: CBC WITH AUTO DIFFERENTIALon 05-12-2025 BASOPHILS ABSOLUTE COUNT (10*3/UL) BY AUTOMATED COUNT 0.0 10*3/uL Normal 0.0-0.2 [facility] Comment on above: Performed By: #### C BCA ####[facility] ([address] [address] VIR BASOPHILS RELATIVE PERCENT BY AUTOMATED COUNT 0.4 % Normal [facility] Comment on above: Performed By: #### C BCA ####[facility] ([address] [address] VIR CELLAVISION DIFFERENTIAL TYPE AUTOMATED DIFFERENTIAL Normal [facility] Comment on above: Performed By: #### C BCA ####[facility] ([address] [address] VIR Eosinophils (Bld) [#/Vol] 0.2 10*3/uL Normal 0.0-0.4 [facility] Comment on above: Performed By: #### C BCA ####[facility] ([address] [address] VIR EOSINOPHILS RELATIVE PERCENT BY AUTOMATED COUNT 3.5 % Normal [facility] Comment on above: Performed By: #### C BCA ####[facility] ([address] [address] VIR Erythrocyte distribution width (RBC) [Ratio] 15.8 % High 11.5-15 [facility] Comment on above: Performed By: #### C BCA ####[facility] ([address] [address] VIR Hematocrit (Bld) [Volume fraction] 32.5 % Low 35-47 [facility] Comment on above: Performed By: #### C BCA ####[facility] ([address] [address] VIR Hemoglobin (Bld) [Mass/Vol] 10.6 g/dL Low 11.7-15.5 [facility] Comment on above: Performed By: #### C BCA ####[facility] ([address] [address] VIR LYMPHOCYTES ABSOLUTE COUNT (10*3/UL) BY AUTOMATED COUNT 1.4 10*3/uL Normal 1.0-3.5 [facility] Comment on above: Performed By: #### C BCA ####[facility] ([address] [address] VIR LYMPHOCYTES RELATIVE PERCENT BY AUTOMATED COUNT 20.3 % Normal [facility] Comment on above: Performed By: #### C BCA ####[facility] ([address] [address] VIR MCH (RBC) [Entitic mass] 27.4 pg Normal 27-34 [facility] Comment on above: Performed By: #### C BCA ####[facility] ([address] [place] [address] VIR MCHC (RBC) [Mass/Vol] 32.5 g/dL Normal 32-36 [facility] Comment on above: Performed By: #### C BCA ####[facility] ([address] [place] [address] VIR MCV (RBC) [Entitic vol] 84 fL Normal 80-100 [facility] Comment on above: Performed By: #### C BCA ####[facility] ([address] [address] VIR MONOCYTES ABSOLUTE COUNT (10*3/UL) BY AUTOMATED COUNT 0.7 10*3/uL Normal 0.0-0.9 [facility] Comment on above: Performed By: #### C BCA ####[facility] ([address] [address] VIR MONOCYTES RELATIVE PERCENT BY AUTOMATED COUNT 10.4 % Normal [facility] Comment on above: Performed By: #### C BCA ####[facility] ([address] [address] VIR NEUTROPHILS ABSOLUTE COUNT BY AUTOMATED COUNT 4.5 10*3/uL Normal 1.5-6.6 [facility] Comment on above: Performed By: #### C BCA ####[facility] ([address] [place] [address] VIR NEUTROPHILS RELATIVE PERCENT BY AUTOMATED COUNT 65.4 % Normal [facility] Comment on above: Performed By: #### C BCA ####[facility] ([address] [address] VIR Platelet mean volume (Bld) [Entitic vol] 8.2 fL Normal 7-12 [facility] Comment on above: Performed By: #### C BCA ####[facility] ([address] [place] [address] VIR Platelets (Bld) [#/Vol] 263 10*3/uL Normal 150-450 [facility] Comment on above: Performed By: #### C BCA ####[facility] (PENDING SALE TO [facility])[address] [place] [address] [place] [address] VIR RBC COUNT 3.86 X10E12/L Normal 3.8-5.2 [facility] Comment on above: Performed By: #### C BCA ####[facility] ([address] [place] [address] VIR WBC (Bld) [#/Vol] 6.8 10*3/uL Normal 4-11 [facility] Comment on above: Performed By: #### C BCA ####[facility] ([address] [place] [address] VIR COMPREHENSIVE METABOLIC PANE Dickson 05-12-2025 Albumin [Mass/Vol] 3.3 g/dL Normal 3.2-5.3 [facility] Comment on above: Performed By: #### C MP ####[facility] ([address] [place] [address] VIR ALP [Catalytic activity/Vol] 119 U/L Normal 39-130 [facility] Comment on above: Performed By: #### C MP ####[facility] ([address] [place] [address] VIR ALT [Catalytic activity/Vol] 16 U/L Normal <=31 [facility] Comment on above: Performed By: #### C MP ####[facility] ([address] [place] [address] VIR Anion gap [Moles/Vol] 10 mmol/L Normal 5-15 [facility] Comment on above: Performed By: #### C MP ####[facility] ([address] [place] [address] VIR AST [Catalytic activity/Vol] 21 U/L Normal <=41 [facility] Comment on above: Performed By: #### C MP ####[facility] ([address] [place] [address] VIR Bilirubin [Mass/Vol] 0.4 mg/dL Normal 0.3-1.2 [facility] Comment on above: Performed By: #### C MP ####[facility] ([address] [place] [address] VIR Calcium [Mass/Vol] 8.9 mg/dL Normal 8.5-10.5 [facility] Comment on above: Performed By: #### C MP ####[facility] ([address] [place] [address] VIR Chloride [Moles/Vol] 100 mmol/L Normal 98-109 [facility] Comment on above: Performed By: #### C MP ####[facility] ([address] [place] [address] VIR CO2 [Moles/Vol] 24 mmol/L Normal 22-32 [facility] Comment on above: Performed By: #### C MP ####[facility] ([address] [place] [address] VIR Creatinine [Mass/Vol] 1.37 mg/dL High 0.40-1.00 [facility] Comment on above: Result Comment: METH OD TRACEABLE TO IDMS STANDARD Performed By: #### C MP ####[facility] ([address] [address] VIR GFR/1.73 sq M.predicted among non-blacks MDRD (S/P/Bld) [Vol rate/Area] 40 mL/min/{1.73_m2} Low >=60 [facility] Comment on above: Result Comment: eGFR not reported due to non-numeric value for Creatinine.Reported eGFR is based on theCKD-EPI 2020 equation that doesnot use a race coefficient. Performed By: #### C MP ####[facility] ([address] [place] [address] VIR Glucose [Mass/Vol] 348 mg/dL High 65-99 [facility] Comment on above: Performed By: #### C MP ####[facility] ([address] [place] [address] VIR Potassium [Moles/Vol] 4.1 mmol/L Normal 3.5-5.0 [facility] Comment on above: Performed By: #### C MP ####[address] [address] VIR Protein [Mass/Vol] 7.6 g/dL Normal 6.0-8.0 [facility] Comment on above: Performed By: #### C MP ####[address] [address] VIR Sodium [Moles/Vol] 134 mmol/L Normal 134-146 [facility] Comment on above: Performed By: #### C MP ####[address] [address] VIR Urea nitrogen [Mass/Vol] 25 mg/dL Normal 5-27 [facility] Comment on above: Performed By: #### C MP ####[address] LUMBAR SPINE WO CONTon CT LUMBAR SPINE WO CONT Normal [facility] POCT NURSING URINE MACROSCOP IC UAon 05-12-2025 BILIRUBIN MARYJO Negative Normal Negative [facility] Comment on above: Performed By: #### N UM ####[facility] ([address] [place] [address] VIR BLOOD/HGB MARYJO Negative Normal Negative [facility] Comment on above: Performed By: #### N UM ####[facility] ([address] [place] [address] VIR GLUCOSE MARYJO 500 mg/dL Abnormal Negative [facility] Comment on above: Performed By: #### N UM ####[facility] ([address] [place] [address] VIR KETONES MARYJO Negative Normal Negative [facility] Comment on above: Performed By: #### N UM ####[facility] ([address] [place] [address] VIR LEUKOCYTE ESTERASE MARYJO Negative Normal Negative [facility] Comment on above: Performed By: #### N UM ####[address] [place] [address] VIR NITRITE MARYJO Negative Normal Negative [facility] Comment on above: Performed By: #### N UM ####[facility] ([address] [place] [address] VIR PH MARYJO 5.5 Normal 5.0, 6.0, 6.5, 7.0, 7.5, 8.0, 8.5, 5.5 [facility] Comment on above: Performed By: #### N UM ####[facility] ([address] [place] [address] VIR PROTEIN MARYJO Negative Normal Negative [facility] Comment on above: Performed By: #### N UM ####[facility] ([address] [place] [address] VIR SPECIFIC GRAVITY MARYJO 1.015 Normal 1.010, 1.015, 1.020, 1.025 [facility] Comment on above: Performed By: #### N UM ####[facility] ([address] [place] [address] VIR UROBILINOGEN MARYJO 0.2 E.U./dL Normal [facility] Comment on above: Performed By: #### N UM ####[facility] ([address] [address] VIR URINE CULTUREon 05-12-2025 Bacteria identified Cx Nom (U) CULTURE RESULTS NO GROWTH AT <1000 CFU/mL Normal [facility] Comment on above: Performed By: #### U C ####[facility] ([facility])[address], [place] [address] VIR XR SPINE LUMBAR 2 OR 3 VWSon 05-11-2025 XR SPINE LUMBAR 2 OR 3 VWS Normal [facility] CBC WITH AUTO DIFFERENTIALon 04-28-2025 BASOPHILS ABSOLUTE COUNT (10*3/UL) BY AUTOMATED COUNT 0.1 10*3/uL Normal 0.0-0.2 [facility] Comment on above: Performed By: #### C BCA ####[facility] ([address] [address] VIR BASOPHILS RELATIVE PERCENT BY AUTOMATED COUNT 0.9 % Normal [facility] Comment on above: Performed By: #### C BCA ####[facility] ([address] [address] VIR CELLAVISION DIFFERENTIAL TYPE AUTOMATED DIFFERENTIAL Normal [facility] Comment on above: Performed By: #### C BCA ####[facility] ([address] [address] VIR Eosinophils (Bld) [#/Vol] 0.3 10*3/uL Normal 0.0-0.4 [facility] Comment on above: Performed By: #### C BCA ####[facility] ([address] [address] VIR EOSINOPHILS RELATIVE PERCENT BY AUTOMATED COUNT 2.9 % Normal [facility] Comment on above: Performed By: #### C BCA ####[facility] ([address] [address] VIR Erythrocyte distribution width (RBC) [Ratio] 15.3 % High 11.5-15 [facility] Comment on above: Performed By: #### C BCA ####[facility] ([address] [address] VIR Hematocrit (Bld) [Volume fraction] 34.6 % Low 35-47 [facility] Comment on above: Performed By: #### C BCA ####[facility] ([address] [address] VIR Hemoglobin (Bld) [Mass/Vol] 11.3 g/dL Low 11.7-15.5 [facility] Comment on above: Performed By: #### C BCA ####[facility] ([address] [address] VIR LYMPHOCYTES ABSOLUTE COUNT (10*3/UL) BY AUTOMATED COUNT 1.6 10*3/uL Normal 1.0-3.5 [facility] Comment on above: Performed By: #### C BCA ####[facility] ([address] [address] VIR LYMPHOCYTES RELATIVE PERCENT BY AUTOMATED COUNT 13.6 % Normal [facility] Comment on above: Performed By: #### C BCA ####[facility] ([address] [address] VIR MCH (RBC) [Entitic mass] 27.6 pg Normal 27-34 [facility] Comment on above: Performed By: #### C BCA ####[facility] ([address] [address] VIR MCHC (RBC) [Mass/Vol] 32.7 g/dL Normal 32-36 [facility] Comment on above: Performed By: #### C BCA ####[facility])[address] [place] [address] VIR MCV (RBC) [Entitic vol] 84 fL Normal 80-100 [facility] Comment on above: Performed By: #### C BCA ####[facility] ([address] [place] [address] VIR MONOCYTES ABSOLUTE COUNT (10*3/UL) BY AUTOMATED COUNT 0.7 10*3/uL Normal 0.0-0.9 [facility] Comment on above: Performed By: #### C BCA ####[facility] ([address] [place] [address] VIR MONOCYTES RELATIVE PERCENT BY AUTOMATED COUNT 6.4 % Normal [facility] Comment on above: Performed By: #### C BCA ####[facility] ([address] [place] [address] VIR NEUTROPHILS ABSOLUTE COUNT BY AUTOMATED COUNT 8.9 10*3/uL High 1.5-6.6 [facility] Comment on above: Performed By: #### C BCA ####[facility] ([address] [address] VIR NEUTROPHILS RELATIVE PERCENT BY AUTOMATED COUNT 76.2 % Normal [facility] Comment on above: Performed By: #### C BCA ####[facility] ([address] [place] [address] VIR Platelet mean volume (Bld) [Entitic vol] 8.0 fL Normal 7-12 [facility] Comment on above: Performed By: #### C BCA ####[facility] ([address] [place] [address] VIR Platelets (Bld) [#/Vol] 392 10*3/uL Normal 150-450 [facility] Comment on above: Performed By: #### C BCA ####[facility] ([address] [place] [address] VIR RBC COUNT 4.11 X10E12/L Normal 3.8-5.2 [facility] Comment on above: Performed By: #### C BCA ####[facility] ([address] [place] [address] VIR WBC (Bld) [#/Vol] 11.7 10*3/uL High 4-11 [facility] Comment on above: Performed By: #### C BCA ####[facility] ([address] [place] [address] VIR COMPREHENSIVE METABOLIC PANE Dickson 04-28-2025 Albumin [Mass/Vol] 3.6 g/dL Normal 3.2-5.3 [facility] Comment on above: Performed By: #### C MP ####[facility] ([address] [place] [address] VIR ALP [Catalytic activity/Vol] 154 U/L High 39-130 [facility] Comment on above: Performed By: #### C MP ####[facility] ([address] [place] [address] VIR ALT [Catalytic activity/Vol] 14 U/L Normal <=31 [facility] Comment on above: Performed By: #### C MP ####[facility] ([address] [place] [address] VIR Anion gap [Moles/Vol] 15 mmol/L Normal 5-15 [facility] Comment on above: Performed By: #### C MP ####[facility] ([address] [place] [address] VIR AST [Catalytic activity/Vol] 29 U/L Normal <=41 [facility] Comment on above: Performed By: #### C MP ####[facility] ([address] [place] [address] VIR Bilirubin [Mass/Vol] 0.9 mg/dL Normal 0.3-1.2 [facility] Comment on above: Performed By: #### C MP ####[facility] ([address] [place] [address] VIR Calcium [Mass/Vol] 9.7 mg/dL Normal 8.5-10.5 [facility] Comment on above: Performed By: #### C MP ####[facility] ([address] [place] [address] VIR Chloride [Moles/Vol] 92 mmol/L Low 98-109 [facility] Comment on above: Performed By: #### C MP ####[facility] ([address] [place] [address] VIR CO2 [Moles/Vol] 26 mmol/L Normal 22-32 [facility] Comment on above: Performed By: #### C MP ####[facility] ([address] [place] [address] VIR Creatinine [Mass/Vol] 1.47 mg/dL High 0.40-1.00 [facility] Comment on above: Result Comment: METH OD TRACEABLE TO IDMS STANDARD Performed By: #### C MP ####[facility] ([address] [place] [address] VIR GFR/1.73 sq M.predicted among non-blacks MDRD (S/P/Bld) [Vol rate/Area] 36 mL/min/{1.73_m2} Low >=60 [facility] Comment on above: Result Comment: eGFR not reported due to non-numeric value for Creatinine.Reported eGFR is based on theCKD-EPI 2020 equation that doesnot use a race coefficient. Performed By: #### C MP ####[facility] ([address] [place] [address] VIR Glucose [Mass/Vol] 271 mg/dL High 65-99 [facility] Comment on above: Performed By: #### C MP ####[facility] ([address] [place] [address] VIR Potassium [Moles/Vol] 4.6 mmol/L Normal 3.5-5.0 [facility] Comment on above: Performed By: #### C MP ####[facility] ([address] [place] [address] VIR Protein [Mass/Vol] 8.4 g/dL High 6.0-8.0 [facility] Comment on above: Performed By: #### C MP ####[facility] ([address] [place] [address] VIR Sodium [Moles/Vol] 133 mmol/L Low 134-146 [facility] Comment on above: Performed By: #### C MP ####[facility] ([address] [place] [address] VIR Urea nitrogen [Mass/Vol] 17 mg/dL Normal 5-27 [facility] Comment on above: Performed By: #### C MP ####[facility] ([address] [place] [address] BRAIN WO CONTon CT BRAIN WO CONT Normal [facility] POCT NURSING URINE MACROSCOP IC UAon 04-28-2025 BILIRUBIN MARYJO Small Abnormal Negative [facility] Comment on above: Performed By: #### N UM ####[facility] ([address] [place] [address] VIR BLOOD/HGB MARYJO Trace Abnormal Negative [facility] Comment on above: Performed By: #### N UM ####[facility] ([address] [place] [address] VIR GLUCOSE MARYJO Negative Normal Negative [facility] Comment on above: Performed By: #### N UM ####[facility] ([place] [address] [address] VIR KETONES MARYJO 40 mg/dL Abnormal Negative [facility] Comment on above: Performed By: #### N UM ####[facility] ([address] [place] [address] VIR LEUKOCYTE ESTERASE MARYJO Small Abnormal Negative [facility] Comment on above: Performed By: #### N UM ####[facility] ([address] [place] [address] VIR NITRITE MARYJO Positive Abnormal Negative [facility] Comment on above: Performed By: #### N UM ####[facility] ([address] [place] [address] VIR PH MARYJO 6.0 Normal 5.0, 6.0, 6.5, 7.0, 7.5, 8.0, 8.5, 5.5 [facility] Comment on above: Performed By: #### N UM ####[facility] ([address] [place] [address] VIR PROTEIN MARYJO 100 mg/dL Abnormal Negative [facility] Comment on above: Performed By: #### N UM ####[facility] ([address] [place] [address] VIR SPECIFIC GRAVITY MARYJO 1.025 Normal 1.010, 1.015, 1.020, 1.025 [facility] Comment on above: Performed By: #### N UM ####[facility] ([address] [place] [address] VIR UROBILINOGEN MARYJO 0.2 E.U./dL Normal [facility] Comment on above: Performed By: #### N UM ####[facility] ([address] [place] [address] VIR URINE CULTUREon 04-28-2025 Bacteria identified Cx Nom (U) Susceptible [facility] Comment on above: Performed By: #### U C ####[facility] ([facility])[address], [place] [address] VIR XR CHEST 1 VWon 04-28-2025 XR CHEST 1 VW Normal [facility] Telemedicineon 04-05-2025 Telemedicine [id number] Jb Goodwin 1945 F Date Provider Department Center 04/05/2025 [facility] [place] Family History Problem Relation Age of Onset Diabetes Mother Hypertension Father Coronary artery disease Father Family Status - Relation Status Age at Mother Father Level of Service:[address] [place] OFFICE/OUTPATIENT ESTABLISHED LOW MDM 20 MIN Reason for Visit and Comments: Follow-up [786387] - No longer on IV Antibiotics or oral and doing well. MRSA [647] Normal [facility] 36on 04-04-2025 36 Labs are in chart Normal [facility] BASIC METABOLIC PANELon 03-16 Anion gap [Moles/Vol] 13 mmol/L Normal 5-15 [facility] Comment on above: Performed By: #### B MP ####[facility] ([facility])[address] [address] VIR Calcium [Mass/Vol] 9.9 mg/dL Normal 8.5-10.5 [facility] Comment on above: Performed By: #### B MP ####[facility] ([facility])[address], [place] [address] VIR Chloride [Moles/Vol] 98 mmol/L Normal 98-109 [facility] Comment on above: Performed By: #### B MP ####[facility] ([facility])[address] [address] VIR CO2 [Moles/Vol] 25 mmol/L Normal 22-32 [facility] Comment on above: Performed By: #### B MP ####[facility] ([facility])[address], [place] [address] VIR Creatinine [Mass/Vol] 1.30 mg/dL High 0.40-1.00 [facility] Comment on above: Result Comment: METH OD TRACEABLE TO IDMS STANDARD Performed By: #### B MP ####[facility] ([facility])[address], [place] [address] VIR GFR/1.73 sq M.predicted among non-blacks MDRD (S/P/Bld) [Vol rate/Area] 42 mL/min/{1.73_m2} Low >=60 [facility] Comment on above: Result Comment: Repo rted eGFR is based on theCKD-EPI 2020 equation that doesnot use a race coefficient. Performed By: #### B MP ####[facility] ([facility])[address], [place] [address] VIR Glucose [Mass/Vol] 227 mg/dL High 65-99 [facility] Comment on above: Performed By: #### B MP ####[facility] ([facility])[address], [place] [address] VIR Potassium [Moles/Vol] 4.2 mmol/L Normal 3.5-5.0 [facility] Comment on above: Performed By: #### B MP ####[facility] ([facility])[address], [place] [address] VIR Sodium [Moles/Vol] 136 mmol/L Normal 134-146 [facility] Comment on above: Performed By: #### B MP ####[facility] ([facility])[address], [place] [address] VIR Urea nitrogen [Mass/Vol] 17 mg/dL Normal 5-27 [facility] Comment on above: Performed By: #### B MP ####[facility] ([facility])[address], [place] [address] VIR CBC WITH AUTO DIFFERENTIALon 04-03-2025 BASOPHILS ABSOLUTE COUNT (10*3/UL) BY AUTOMATED COUNT 0.1 10*3/uL Normal 0.0-0.2 [facility] Comment on above: Order Comment: Abnor mal CBC with auto diff reflexes to a manual diff Result Comment: This is an appended report. These results have been appended to a previously preliminary verified report. Performed By: #### C BCA ####[facility] ([facility])[address], [place] [address] VIR BASOPHILS RELATIVE PERCENT BY AUTOMATED COUNT 0.8 % Normal [facility] Comment on above: Order Comment: Abnor mal CBC with auto diff reflexes to a manual diff Result Comment: This is an appended report. These results have been appended to a previously preliminary verified report. Performed By: #### C BCA ####[facility] ([facility])[address], [place] [address] VIR CELLAVISION DIFFERENTIAL TYPE AUTOMATED DIFFERENTIAL Normal [facility] Comment on above: Order Comment: Abnor mal CBC with auto diff reflexes to a manual diff Result Comment: This is an appended report. These results have been appended to a previously preliminary verified report. Performed By: #### C BCA ####[facility] ([facility])[address], [place] [address] VIR Eosinophils (Bld) [#/Vol] 0.4 10*3/uL Normal 0.0-0.4 [facility] Comment on above: Order Comment: Abnor mal CBC with auto diff reflexes to a manual diff Result Comment: This is an appended report. These results have been appended to a previously preliminary verified report. Performed By: #### C BCA ####[facility] ([facility])[address], [place] [address] VIR EOSINOPHILS RELATIVE PERCENT BY AUTOMATED COUNT 4.5 % Normal [facility] Comment on above: Order Comment: Abnor mal CBC with auto diff reflexes to a manual diff Result Comment: This is an appended report. These results have been appended to a previously preliminary verified report. Performed By: #### C BCA ####[facility] ([facility])[address], [place] [address] VIR Erythrocyte distribution width (RBC) [Ratio] 15.9 % High 11.5-15 [facility] Comment on above: Order Comment: Abnor mal CBC with auto diff reflexes to a manual diff Performed By: #### C BCA ####[facility] ([facility])[address], [place] [address] VIR Hematocrit (Bld) [Volume fraction] 32.9 % Low 35-47 [facility] Comment on above: Order Comment: Abnor mal CBC with auto diff reflexes to a manual diff Performed By: #### C BCA ####[facility] ([facility])[address], [place] [address] VIR Hemoglobin (Bld) [Mass/Vol] 10.9 g/dL Low 11.7-15.5 [facility] Comment on above: Order Comment: Abnor mal CBC with auto diff reflexes to a manual diff Performed By: #### C BCA ####[facility] ([facility])[address], [place] [address] VIR LYMPHOCYTES ABSOLUTE COUNT (10*3/UL) BY AUTOMATED COUNT 1.4 10*3/uL Normal 1.0-3.5 [facility] Comment on above: Order Comment: Abnor mal CBC with auto diff reflexes to a manual diff Result Comment: This is an appended report. These results have been appended to a previously preliminary verified report. Performed By: #### C BCA ####[facility] ([facility])[address], [place] [address] VIR LYMPHOCYTES RELATIVE PERCENT BY AUTOMATED COUNT 17.6 % Normal [facility] Comment on above: Order Comment: Abnor mal CBC with auto diff reflexes to a manual diff Result Comment: This is an appended report. These results have been appended to a previously preliminary verified report. Performed By: #### C BCA ####[facility] ([facility])[address], [place] [address] VIR MCH (RBC) [Entitic mass] 27.6 pg Normal 27-34 [facility] Comment on above: Order Comment: Abnor mal CBC with auto diff reflexes to a manual diff Performed By: #### C BCA ####[facility] ([facility])[address], [place] [address] VIR MCHC (RBC) [Mass/Vol] 33.2 g/dL Normal 32-36 [facility] Comment on above: Order Comment: Abnor mal CBC with auto diff reflexes to a manual diff Performed By: #### C BCA ####[facility] [facility], [place] [address] VIR MCV (RBC) [Entitic vol] 83 fL Normal 80-100 [facility] Comment on above: Order Comment: Abnor mal CBC with auto diff reflexes to a manual diff Performed By: #### C BCA ####[facility] ([facility])[address], [place] [address] VIR MONOCYTES ABSOLUTE COUNT (10*3/UL) BY AUTOMATED COUNT 0.6 10*3/uL Normal 0.0-0.9 [facility] Comment on above: Order Comment: Abnor mal CBC with auto diff reflexes to a manual diff Result Comment: This is an appended report. These results have been appended to a previously preliminary verified report. Performed By: #### C BCA ####[facility] ([facility])[address], [place] [address] VIR MONOCYTES RELATIVE PERCENT BY AUTOMATED COUNT 7.9 % Normal [facility] Comment on above: Order Comment: Abnor mal CBC with auto diff reflexes to a manual diff Result Comment: This is an appended report. These results have been appended to a previously preliminary verified report. Performed By: #### C BCA ####[facility] ([facility])[address], [place] [address] VIR NEUTROPHILS ABSOLUTE COUNT BY AUTOMATED COUNT 5.6 10*3/uL Normal 1.5-6.6 [facility] Comment on above: Order Comment: Abnor mal CBC with auto diff reflexes to a manual diff Result Comment: This is an appended report. These results have been appended to a previously preliminary verified report. Performed By: #### C BCA ####[facility] ([facility])[address], [place] [address] VIR NEUTROPHILS RELATIVE PERCENT BY AUTOMATED COUNT 69.2 % Normal [facility] Comment on above: Order Comment: Abnor mal CBC with auto diff reflexes to a manual diff Result Comment: This is an appended report. These results have been appended to a previously preliminary verified report. Performed By: #### C BCA ####[facility] ([facility])[address], [place] [address] VIR Platelet mean volume (Bld) [Entitic vol] 8.8 fL Normal 7-12 [facility] Comment on above: Order Comment: Abnor mal CBC with auto diff reflexes to a manual diff Performed By: #### C BCA ####[facility] ([facility])[address], [place] [address] VIR Platelets (Bld) [#/Vol] 314 10*3/uL Normal 150-450 [facility] Comment on above: Order Comment: Abnor mal CBC with auto diff reflexes to a manual diff Performed By: #### C BCA ####[facility] ([facility])[address], [place] [address] VIR RBC COUNT 3.96 X10E12/L Normal 3.8-5.2 [facility] Comment on above: Order Comment: Abnor mal CBC with auto diff reflexes to a manual diff Performed By: #### C BCA ####[facility] ([facility])[address], [place] [address] VIR WBC (Bld) [#/Vol] 8.0 10*3/uL Normal 4-11 [facility] Comment on above: Order Comment: Abnor mal CBC with auto diff reflexes to a manual diff Performed By: #### C BCA ####[facility] ([facility])[address], [place] [address] VIR CK TOTALon 04-03-2025 CPK 246 U/L High 24-170 [facility] Comment on above: Performed By: #### C PK ####[facility] ([facility])[address], [place] [address] VIR 36on 03-28-2025 36 Follow up call made to get pt scheduled for follow up appt, VM was left on Pts daughter phone. Normal [facility] 36 Labs are in Chart Normal [facility] BASIC METABOLIC PANELon 03-15 Anion gap [Moles/Vol] 9 mmol/L Normal 5-15 [facility] Comment on above: Performed By: #### B MP ####[facility] ([facility])[address], [place] [address] VIR Calcium [Mass/Vol] 9.2 mg/dL Normal 8.5-10.5 [facility] Comment on above: Performed By: #### B MP ####[facility] ([facility])[address], [place] [address] VIR Chloride [Moles/Vol] 96 mmol/L Low 98-109 [facility] Comment on above: Performed By: #### B MP ####[facility] ([facility])[address], [place] [address] VIR CO2 [Moles/Vol] 31 mmol/L Normal 22-32 [facility] Comment on above: Performed By: #### B MP ####[facility] ([facility])[address], [place] [address] VIR Creatinine [Mass/Vol] 1.58 mg/dL High 0.40-1.00 [facility] Comment on above: Result Comment: METH OD TRACEABLE TO IDMS STANDARD Performed By: #### B MP ####[facility] ([facility])[address], [place] [address] VIR GFR/1.73 sq M.predicted among non-blacks MDRD (S/P/Bld) [Vol rate/Area] 33 mL/min/{1.73_m2} Low >=60 [facility] Comment on above: Result Comment: Repo rted eGFR is based on theCKD-EPI 2020 equation that doesnot use a race coefficient. Performed By: #### B MP ####[facility] ([facility])[address] [address], [place] [address] VIR Glucose [Mass/Vol] 328 mg/dL High 65-99 [facility] Comment on above: Performed By: #### B MP ####[facility] ([facility])[address], [place] [address] VIR Potassium [Moles/Vol] 4.2 mmol/L Normal 3.5-5.0 [facility] Comment on above: Performed By: #### B MP ####[facility] ([facility])[address], [place] [address] VIR Sodium [Moles/Vol] 136 mmol/L Normal 134-146 [facility] Comment on above: Performed By: #### B MP ####[facility] ([facility])[address], [place] [address] VIR Urea nitrogen [Mass/Vol] 22 mg/dL Normal 5-27 [facility] Comment on above: Performed By: #### B MP ####[facility] ([facility])[address], [place] [address] VIR Basic metabolic panelon 03-15 Anion gap [Moles/Vol] 9 mmol/L 5 - 15 mmol/L [facility] Calcium [Mass/Vol] 9.2 mg/dL 8.5 - 10.5 mg/dL [facility] Chloride [Moles/Vol] 96 mmol/L Low 98 - 109 mmol/L [facility] CO2 [Moles/Vol] 31 mmol/L 22 - 32 mmol/L [facility] Creatinine [Mass/Vol] 1.58 mg/dL High 0.40 - 1.00 mg/dL [facility] Comment on above: METHOD TRACEABLE TO IDMS STANDARD EGFR Non-Race Dependent 33 Low - PINF [facility] Comment on above: Reported eGFR is bas ed on the CKD-EPI 2020 equation that does not use a race coefficient. Glucose [Mass/Vol] 328 mg/dL High 65 - 99 mg/dL [facility] Potassium [Moles/Vol] 4.2 mmol/L 3.5 - 5.0 mmol/L [facility] Sodium [Moles/Vol] 136 mmol/L 134 - 146 mmol/L [facility] Urea nitrogen [Mass/Vol] 22 mg/dL 5 - 27 mg/dL [facility] CBC WITH AUTO DIFFERENTIALon 03-26-2025 CELLAVISION DIFFERENTIAL TYPE MANUAL DIFFERENTIAL Normal [facility] Comment on above: Order Comment: Abnor mal CBC with auto diff reflexes to a manual diff Result Comment: This is an appended report. These results have been appended to a previously preliminary verified report. Performed By: #### C BCA ####[facility] ([facility])[address] [address] VIR CELLAVISION ELLIPTOCYTES IN BLOOD BY LIGHT MICROSCOPY 1+ Normal [facility] Comment on above: Order Comment: Abnor mal CBC with auto diff reflexes to a manual diff Result Comment: This is an appended report. These results have been appended to a previously preliminary verified report. Performed By: #### C BCA ####[facility] ([facility])[address], [place] [address] VIR CELLAVISION EOSINOPHILS ABSOLUTE COUNT (10*3/UL) BY MANUAL COUNT 0.5 10*3/uL High 0.0-0.4 [facility] Comment on above: Order Comment: Abnor mal CBC with auto diff reflexes to a manual diff Result Comment: This is an appended report. These results have been appended to a previously preliminary verified report. Performed By: #### C BCA ####[facility] ([facility])[address], [place] [address] VIR CELLAVISION EOSINOPHILS PERCENT BY MANUAL COUNT 7 % Normal [facility] Comment on above: Order Comment: Abnor mal CBC with auto diff reflexes to a manual diff Result Comment: This is an appended report. These results have been appended to a previously preliminary verified report. Performed By: #### C BCA ####[facility] ([facility])[address], [place] [address] VIR CELLAVISION LYMPHOCYTES ABSOLUTE COUNT (10*3/UL) BY MANUAL COUNT 0.9 10*3/uL Low 1.0-3.5 [facility] Comment on above: Order Comment: Abnor mal CBC with auto diff reflexes to a manual diff Result Comment: This is an appended report. These results have been appended to a previously preliminary verified report. Performed By: #### C BCA ####[facility] ([facility])[address], [place] [address] VIR CELLAVISION LYMPHOCYTES RELATIVE PERCENT BY MANUAL COUNT 12 % Normal [facility] Comment on above: Order Comment: Abnor mal CBC with auto diff reflexes to a manual diff Result Comment: This is an appended report. These results have been appended to a previously preliminary verified report. Performed By: #### C BCA ####[facility] ([facility])[address], [place] [address] VIR CELLAVISION MONOCYTES ABSOLUTE COUNT (10*3/UL) IN BLOOD BY MANUAL COUNT 0.4 10*3/uL Normal 0.0-0.9 [facility] Comment on above: Order Comment: Abnor mal CBC with auto diff reflexes to a manual diff Result Comment: This is an appended report. These results have been appended to a previously preliminary verified report. Performed By: #### C BCA ####[facility] ([facility])[address], [place] [address] VIR CELLAVISION MONOCYTES RELATIVE PERCENT BY MANUAL COUNT 5 % Normal [facility] Comment on above: Order Comment: Abnor mal CBC with auto diff reflexes to a manual diff Result Comment: This is an appended report. These results have been appended to a previously preliminary verified report. Performed By: #### C BCA ####[facility] ([facility])[address], [place] [address] VIR CELLAVISION NEUTROPHILS ABSOLUTE COUNT BY MANUAL COUNT 5.5 10*3/uL Normal 1.5-6.6 [facility] Comment on above: Order Comment: Abnor mal CBC with auto diff reflexes to a manual diff Result Comment: This is an appended report. These results have been appended to a previously preliminary verified report. Performed By: #### C BCA ####[facility] ([facility])[address], [place] [address] VIR CELLAVISION NEUTROPHILS RELATIVE PERCENT BY MANUAL COUNT 76 % Normal [facility] Comment on above: Order Comment: Abnor mal CBC with auto diff reflexes to a manual diff Result Comment: This is an appended report. These results have been appended to a previously preliminary verified report. Performed By: #### C BCA ####[facility] ([facility])[address], [place] [address] VIR Erythrocyte distribution width (RBC) [Ratio] 16.8 % High 11.5-15 [facility] Comment on above: Order Comment: Abnor mal CBC with auto diff reflexes to a manual diff Performed By: #### C BCA ####[facility] ([facility])[address], [place] [address] VIR Hematocrit (Bld) [Volume fraction] 28.9 % Low 35-47 [facility] Comment on above: Order Comment: Abnor mal CBC with auto diff reflexes to a manual diff Performed By: #### C BCA ####[facility] ([facility])[address], [place] [address] VIR Hemoglobin (Bld) [Mass/Vol] 9.5 g/dL Low 11.7-15.5 [facility] Comment on above: Order Comment: Abnor mal CBC with auto diff reflexes to a manual diff Performed By: #### C BCA ####[facility] ([facility])[address], [place] [address] VIR MCH (RBC) [Entitic mass] 27.7 pg Normal 27-34 [facility] Comment on above: Order Comment: Abnor mal CBC with auto diff reflexes to a manual diff Performed By: #### C BCA ####[facility] ([facility])[address], [place] [address] VIR MCHC (RBC) [Mass/Vol] 32.9 g/dL Normal 32-36 [facility] Comment on above: Order Comment: Abnor mal CBC with auto diff reflexes to a manual diff Performed By: #### C BCA ####[facility] ([facility])[address], [place] [address] VIR MCV (RBC) [Entitic vol] 84 fL Normal 80-100 [facility] Comment on above: Order Comment: Abnor mal CBC with auto diff reflexes to a manual diff Performed By: #### C BCA ####[facility] ([facility])[address], [place] [address] VIR Platelet mean volume (Bld) [Entitic vol] 9.1 fL Normal 7-12 [facility] Comment on above: Order Comment: Abnor mal CBC with auto diff reflexes to a manual diff Performed By: #### C BCA ####[facility] ([facility])[address], [place] [address] VIR Platelets (Bld) [#/Vol] 233 10*3/uL Normal 150-450 [facility] Comment on above: Order Comment: Abnor mal CBC with auto diff reflexes to a manual diff Performed By: #### C BCA ####[facility] ([facility])[address], [place] [address] VIR RBC COUNT 3.43 X10E12/L Low 3.8-5.2 [facility] Comment on above: Order Comment: Abnor mal CBC with auto diff reflexes to a manual diff Performed By: #### C BCA ####[facility] ([facility])[address], [place] [address] VIR WBC (Bld) [#/Vol] 7.3 10*3/uL Normal 4-11 [facility] Comment on above: Order Comment: Abnor mal CBC with auto diff reflexes to a manual diff Performed By: #### C BCA ####[facility] ([facility])[address], [place] [address] VIR CK TOTALon 03-26-2025 CPK 265 U/L High 24-170 [facility] Comment on above: Performed By: #### C PK ####[facility] ([facility])[address], [place] [address] VIR CK Totalon 03-26-2025 CK [Catalytic activity/Vol] 265 U/L High 24 - 170 U/L [facility] No Panel Informationon 03-26 Interpretation and review of laboratory results Abnormal [facility] CT LUMBAR SPINE WO CONTon CT LUMBAR SPINE WO CONT Normal [facility] 36on 03-21-2025 36 Labs [facility] Normal [facility] BASIC METABOLIC PANELon 05-0 Anion gap [Moles/Vol] 11 mmol/L Normal 5-15 [facility] Comment on above: Performed By: #### B MP ####[facility] ([facility])[address], [place] [address] VIR Calcium [Mass/Vol] 9.4 mg/dL Normal 8.5-10.5 [facility] Comment on above: Performed By: #### B MP ####[facility] ([facility])[address], [place] [address] VIR Chloride [Moles/Vol] 99 mmol/L Normal 98-109 [facility] Comment on above: Performed By: #### B MP ####[facility] ([facility])[address] [facility], [place] [address] VIR CO2 [Moles/Vol] 28 mmol/L Normal 22-32 [facility] Comment on above: Performed By: #### B MP ####[facility] ([facility])[address] [facility], [place] [address] VIR Creatinine [Mass/Vol] 1.83 mg/dL High 0.40-1.00 [facility] Comment on above: Result Comment: METH OD TRACEABLE TO IDMS STANDARD Performed By: #### B MP ####[facility] ([facility])[address] [facility], [place] [address] VIR GFR/1.73 sq M.predicted among non-blacks MDRD (S/P/Bld) [Vol rate/Area] 28 mL/min/{1.73_m2} Low >=60 [facility] Comment on above: Result Comment: Repo rted eGFR is based on theCKD-EPI 2020 equation that doesnot use a race coefficient. Performed By: #### B MP ####[facility] ([facility])[address], [place] [address] VIR Glucose [Mass/Vol] 286 mg/dL High 65-99 [facility] Comment on above: Performed By: #### B MP ####[facility] ([facility])[address] [facility], [place] [address] VIR Potassium [Moles/Vol] 4.4 mmol/L Normal 3.5-5.0 [facility] Comment on above: Performed By: #### B MP ####[facility] ([facility])[address] [facility], [place] [address] VIR Sodium [Moles/Vol] 138 mmol/L Normal 134-146 [facility] Comment on above: Performed By: #### B MP ####[facility] ([facility])[address], [place] [address] VIR Urea nitrogen [Mass/Vol] 33 mg/dL High 5-27 [facility] Comment on above: Performed By: #### B MP ####[facility] ([facility])[address], [place] [address] VIR CBC WITH AUTO DIFFERENTIALon 03-20-2025 CELLAVISION DIFFERENTIAL TYPE MANUAL DIFFERENTIAL Normal [facility] Comment on above: Order Comment: Abnor mal CBC with auto diff reflexes to a manual diff Result Comment: This is an appended report. These results have been appended to a previously preliminary verified report. Performed By: #### C BCA ####[facility] ([facility])[address], [place] [address] VIR CELLAVISION ELLIPTOCYTES IN BLOOD BY LIGHT MICROSCOPY 1+ Normal [facility] Comment on above: Order Comment: Abnor mal CBC with auto diff reflexes to a manual diff Result Comment: This is an appended report. These results have been appended to a previously preliminary verified report. Performed By: #### C BCA ####[facility] ([facility])[address], [place] [address] VIR CELLAVISION EOSINOPHILS ABSOLUTE COUNT (10*3/UL) BY MANUAL COUNT 0.4 10*3/uL Normal [facility] Comment on above: Order Comment: Abnor mal CBC with auto diff reflexes to a manual diff Result Comment: This is an appended report. These results have been appended to a previously preliminary verified report. Performed By: #### C BCA ####[facility] ([facility])[address], [place] [address] VIR CELLAVISION EOSINOPHILS PERCENT BY MANUAL COUNT 7 % Normal [facility] Comment on above: Order Comment: Abnor mal CBC with auto diff reflexes to a manual diff Result Comment: This is an appended report. These results have been appended to a previously preliminary verified report. Performed By: #### C BCA ####[facility] ([facility])[address], [place] [address] VIR CELLAVISION LYMPHOCYTES ABSOLUTE COUNT (10*3/UL) BY MANUAL COUNT 1.7 10*3/uL Normal [facility] Comment on above: Order Comment: Abnor mal CBC with auto diff reflexes to a manual diff Result Comment: This is an appended report. These results have been appended to a previously preliminary verified report. Performed By: #### C BCA ####[facility] ([facility])[address], [place] [address] VIR CELLAVISION LYMPHOCYTES RELATIVE PERCENT BY MANUAL COUNT 28 % Normal [facility] Comment on above: Order Comment: Abnor mal CBC with auto diff reflexes to a manual diff Result Comment: This is an appended report. These results have been appended to a previously preliminary verified report. Performed By: #### C BCA ####[facility] ([facility])[address], [place] [address] VIR CELLAVISION MONOCYTES ABSOLUTE COUNT (10*3/UL) IN BLOOD BY MANUAL COUNT 0.2 10*3/uL Normal [facility] Comment on above: Order Comment: Abnor mal CBC with auto diff reflexes to a manual diff Result Comment: This is an appended report. These results have been appended to a previously preliminary verified report. Performed By: #### C BCA ####[facility] ([facility])[address], [place] [address] VIR CELLAVISION MONOCYTES RELATIVE PERCENT BY MANUAL COUNT 4 % Normal [facility] Comment on above: Order Comment: Abnor mal CBC with auto diff reflexes to a manual diff Result Comment: This is an appended report. These results have been appended to a previously preliminary verified report. Performed By: #### C BCA ####[facility] ([facility])[address], [place] [address] VIR CELLAVISION NEUTROPHILS ABSOLUTE COUNT BY MANUAL COUNT 3.9 10*3/uL Normal [facility] Comment on above: Order Comment: Abnor mal CBC with auto diff reflexes to a manual diff Result Comment: This is an appended report. These results have been appended to a previously preliminary verified report. Performed By: #### C BCA ####[facility] ([facility])[address], [place] [address] VIR CELLAVISION NEUTROPHILS RELATIVE PERCENT BY MANUAL COUNT 61 % Normal [facility] Comment on above: Order Comment: Abnor mal CBC with auto diff reflexes to a manual diff Result Comment: This is an appended report. These results have been appended to a previously preliminary verified report. Performed By: #### C BCA ####[facility] ([facility])[address], [place] [address] VIR Erythrocyte distribution width (RBC) [Ratio] 17.9 % High 11.5-15 [facility] Comment on above: Order Comment: Abnor mal CBC with auto diff reflexes to a manual diff Performed By: #### C BCA ####[facility] ([facility])[address], [place] [address] VIR Hematocrit (Bld) [Volume fraction] 30.5 % Low 35-47 [facility] Comment on above: Order Comment: Abnor mal CBC with auto diff reflexes to a manual diff Performed By: #### C BCA ####[facility] ([facility])[address], [place] [address] VIR Hemoglobin (Bld) [Mass/Vol] 10.0 g/dL Low 11.7-15.5 [facility] Comment on above: Order Comment: Abnor mal CBC with auto diff reflexes to a manual diff Performed By: #### C BCA ####[facility] ([facility])[address], [place] [address] VIR MCH (RBC) [Entitic mass] 28.5 pg Normal 27-34 [facility] Comment on above: Order Comment: Abnor mal CBC with auto diff reflexes to a manual diff Performed By: #### C BCA ####[facility] ([facility])[address], [place] [address] VIR MCHC (RBC) [Mass/Vol] 33.0 g/dL Normal 32-36 [facility] Comment on above: Order Comment: Abnor mal CBC with auto diff reflexes to a manual diff Performed By: #### C BCA ####[facility] [facility], [place] [address] VIR MCV (RBC) [Entitic vol] 86 fL Normal 80-100 [facility] Comment on above: Order Comment: Abnor mal CBC with auto diff reflexes to a manual diff Performed By: #### C BCA ####[facility] ([facility])[address], [place] [address] VIR Platelet mean volume (Bld) [Entitic vol] 9.2 fL Normal 7-12 [facility] Comment on above: Order Comment: Abnor mal CBC with auto diff reflexes to a manual diff Performed By: #### C BCA ####[facility] ([facility])[address], [place] [address] VIR Platelets (Bld) [#/Vol] 261 10*3/uL Normal 150-450 [facility] Comment on above: Order Comment: Abnor mal CBC with auto diff reflexes to a manual diff Performed By: #### C BCA ####[facility] ([facility])[address], [place] [address] VIR RBC COUNT 3.52 X10E12/L Low 3.8-5.2 [facility] Comment on above: Order Comment: Abnor mal CBC with auto diff reflexes to a manual diff Performed By: #### C BCA ####[facility] ([facility])[address], [place] [address] VIR WBC (Bld) [#/Vol] 6.2 10*3/uL Normal 4-11 [facility] Comment on above: Order Comment: Abnor mal CBC with auto diff reflexes to a manual diff Performed By: #### C BCA ####[facility] ([facility])[address], [place] [address] VIR CBC WITH AUTO DIFFERENTIALon 03-19-2025 BASOPHILS ABSOLUTE COUNT (10*3/UL) BY AUTOMATED COUNT 0.1 10*3/uL Normal [facility] Comment on above: Performed By: #### C BCA ####[facility] (PENDING S[facility] TO [facility])[address] [facility] [place] [address] VIR BASOPHILS RELATIVE PERCENT BY AUTOMATED COUNT 1.3 % Normal [facility] Comment on above: Performed By: #### C BCA ####[facility] (PENDING S[facility] TO [facility])[address] [facility] [place] [address] VIR CELLAVISION DIFFERENTIAL TYPE AUTOMATED DIFFERENTIAL Normal [facility] Comment on above: Performed By: #### C BCA ####[facility] ([address] [place] [address] VIR Eosinophils (Bld) [#/Vol] 0.6 10*3/uL Normal [facility] Comment on above: Performed By: #### C BCA ####[facility] ([address] [place] [address] VIR EOSINOPHILS RELATIVE PERCENT BY AUTOMATED COUNT 6.9 % Normal [facility] Comment on above: Performed By: #### C BCA ####[facility] ([address] [place] [address] VIR Erythrocyte distribution width (RBC) [Ratio] 17.5 % High 11.5-15 [facility] Comment on above: Performed By: #### C BCA ####[facility] (PENDING SALE TO [facility])[address] [place] [address] VIR Hematocrit (Bld) [Volume fraction] 27.7 % Low 35-47 [facility] Comment on above: Performed By: #### C BCA ####[facility] (PENDING S[facility] TO [facility])[address] [place], [place] [address] [address] VIR Hemoglobin (Bld) [Mass/Vol] 9.3 g/dL Low 11.7-15.5 [facility] Comment on above: Performed By: #### C BCA ####[facility] ([address] [address] VIR LYMPHOCYTES ABSOLUTE COUNT (10*3/UL) BY AUTOMATED COUNT 2.5 10*3/uL Normal [facility] Comment on above: Performed By: #### C BCA ####[facility] ([address] [address] VIR LYMPHOCYTES RELATIVE PERCENT BY AUTOMATED COUNT 29.1 % Normal [facility] Comment on above: Performed By: #### C BCA ####[facility] ([address] [address] VIR MCH (RBC) [Entitic mass] 28.9 pg Normal 27-34 [facility] Comment on above: Performed By: #### C BCA ####[facility] ([address] [place] [address] VIR MCHC (RBC) [Mass/Vol] 33.7 g/dL Normal 32-36 [facility] Comment on above: Performed By: #### C BCA ####[facility] ([address] [place] [address] VIR MCV (RBC) [Entitic vol] 86 fL Normal 80-100 [facility] Comment on above: Performed By: #### C BCA ####[facility] ([address] [place] [address] VIR MONOCYTES ABSOLUTE COUNT (10*3/UL) BY AUTOMATED COUNT 0.9 10*3/uL Normal [facility] Comment on above: Performed By: #### C BCA ####[facility] ([address] [address] VIR MONOCYTES RELATIVE PERCENT BY AUTOMATED COUNT 10.6 % Normal [facility] Comment on above: Performed By: #### C BCA ####[facility] ([address] [place] [address] VIR NEUTROPHILS ABSOLUTE COUNT BY AUTOMATED COUNT 4.4 10*3/uL Normal [facility] Comment on above: Performed By: #### C BCA ####[facility] ([address] [place] [address] VIR NEUTROPHILS RELATIVE PERCENT BY AUTOMATED COUNT 52.1 % Normal [facility] Comment on above: Performed By: #### C BCA ####[facility] ([address] [place] [address] VIR Platelet mean volume (Bld) [Entitic vol] 8.8 fL Normal 7-12 [facility] Comment on above: Performed By: #### C BCA ####[facility] ([address] [address] VIR Platelets (Bld) [#/Vol] 274 10*3/uL Normal 150-450 [facility] Comment on above: Performed By: #### C BCA ####[facility] ([address] [place] [address] VIR RBC COUNT 3.22 X10E12/L Low 3.8-5.2 [facility] Comment on above: Performed By: #### C BCA ####[facility] ([address] [place] [address] VIR WBC (Bld) [#/Vol] 8.5 10*3/uL Normal 4-11 [facility] Comment on above: Performed By: #### C BCA ####[facility] ([address] [address] VIR COMPREHENSIVE METABOLIC PANE [facility] 03-19-2025 Albumin [Mass/Vol] 3.3 g/dL Normal 3.2-5.3 [facility] Comment on above: Performed By: #### C MP ####[facility] ([place] [address] [place] [address] VIR ALP [Catalytic activity/Vol] 107 U/L Normal 39-130 [facility] Comment on above: Performed By: #### C MP ####[facility] ([place] [address] [place] [address] VIR ALT [Catalytic activity/Vol] 17 U/L Normal <=31 [facility] Comment on above: Performed By: #### C MP ####[facility] ([place] [address] [place] [address] VIR Anion gap [Moles/Vol] 10 mmol/L Normal 5-15 [facility] Comment on above: Performed By: #### C MP ####[facility] ([address] [place] [address] VIR AST [Catalytic activity/Vol] 30 U/L Normal <=41 [facility] Comment on above: Performed By: #### C MP ####[facility] ([address] [place] [address] VIR Bilirubin [Mass/Vol] 0.4 mg/dL Normal 0.3-1.2 [facility] Comment on above: Performed By: #### C MP ####[facility] ([place] [address] [place] [address] VIR Calcium [Mass/Vol] 8.9 mg/dL Normal 8.5-10.5 [facility] Comment on above: Performed By: #### C MP ####[facility] ([place] [address] [place] [address] VIR Chloride [Moles/Vol] 101 mmol/L Normal 98-109 [facility] Comment on above: Performed By: #### C MP ####[facility] ([place] [address] [place] [address] VIR CO2 [Moles/Vol] 26 mmol/L Normal 22-32 [facility] Comment on above: Performed By: #### C MP ####[facility] (PENDING SALE [facility])[address] [place] [address].[place] [address] VIR Creatinine [Mass/Vol] 1.83 mg/dL High 0.40-1.00 [facility] Comment on above: Result Comment: METH OD TRACEABLE TO IDMS STANDARD Performed By: #### C MP ####[facility] (PEND[facility] S[facility])[address] [place] [address].[place] [address] VIR GFR/1.73 sq M.predicted among non-blacks MDRD (S/P/Bld) [Vol rate/Area] 28 mL/min/{1.73_m2} Low >=60 [facility] Comment on above: Result Comment: eGFR not reported due to non-numeric value for Creatinine.Reported eGFR is based on theCKD-EPI 1 equation that doesnot use a race coefficient. Performed By: #### C MP ####[facility] ([address] [place] [address] VIR Glucose [Mass/Vol] 152 mg/dL High 65-99 [facility] Comment on above: Performed By: #### C MP ####[facility] ([address] [place] [address] VIR Potassium [Moles/Vol] 4.3 mmol/L Normal 3.5-5.0 [facility] Comment on above: Performed By: #### C MP ####[facility] ([address] [place] [address] VIR Protein [Mass/Vol] 7.2 g/dL Normal 6.0-8.0 [facility] Comment on above: Performed By: #### C MP ####[facility] ([address] [place] [address] VIR Sodium [Moles/Vol] 137 mmol/L Normal 134-146 [facility] Comment on above: Performed By: #### C MP ####[facility] ([address] [place] [address] VIR Urea nitrogen [Mass/Vol] 35 mg/dL High 5-27 [facility] Comment on above: Performed By: #### C MP ####[facility] ([address] [place] [address] VIR MAGNESIUMon 03-19-2025 Magnesium [Mass/Vol] 1.8 mg/dL Normal 1.8-2.6 [facility] Comment on above: Performed By: #### M G ####[facility] ([address] [place] [address] VIR BEDSIDE GLUCOSEon 03-18-2025 Glucose [Mass/Vol] 228 mg/dL High 65-99 [facility] Comment on above: Performed By: #### B EDG ####[facility] ([address] [place] [address] VIR Glucose [Mass/Vol] 331 mg/dL High 65-99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 By: #### C BCA ####[facility] ([address] [address] VIR Hemoglobin (Bld) [Mass/Vol] 9.3 g/dL Low 11.7-15.5 [facility] Comment on above: Order Comment: Abnor mal CBC with auto diff reflexes to a manual diff Performed By: #### C BCA ####[facility] ([address] [address] VIR LYMPHOCYTES ABSOLUTE COUNT (10*3/UL) BY AUTOMATED COUNT 1.6 10*3/uL Normal [facility] Comment on above: Order Comment: Abnor mal CBC with auto diff reflexes to a manual diff Performed By: #### C BCA ####[facility] ([address] [place] [address] VIR LYMPHOCYTES RELATIVE PERCENT BY AUTOMATED COUNT 23.6 % Normal [facility] Comment on above: Order Comment: Abnor mal CBC with auto diff reflexes to a manual diff Performed By: #### C BCA ####[facility] ([address] [place] [address] VIR MCH (RBC) [Entitic mass] 28.4 pg Normal 27-34 [facility] Comment on above: Order Comment: Abnor mal CBC with auto diff reflexes to a manual diff Performed By: #### C BCA ####[facility] ([address] [place] [address] VIR MCHC (RBC) [Mass/Vol] 32.9 g/dL Normal 32-36 [facility] Comment on above: Order Comment: Abnor mal CBC with auto diff reflexes to a manual diff Performed By: #### C BCA ####[facility] ([address] [address] VIR MCV (RBC) [Entitic vol] 87 fL Normal 80-100 [facility] Comment on above: Order Comment: Abnor mal CBC with auto diff reflexes to a manual diff Performed By: #### C BCA ####[facility] ([address] [place] [address] VIR MONOCYTES ABSOLUTE COUNT (10*3/UL) BY AUTOMATED COUNT 0.7 10*3/uL Normal [facility] Comment on above: Order Comment: Abnor mal CBC with auto diff reflexes to a manual diff Performed By: #### C BCA ####[facility] ([address] [place] [address] VIR MONOCYTES RELATIVE PERCENT BY AUTOMATED COUNT 10.1 % Normal [facility] Comment on above: Order Comment: Abnor mal CBC with auto diff reflexes to a manual diff Performed By: #### C BCA ####[facility] ([address] [place] [address] VIR NEUTROPHILS ABSOLUTE COUNT BY AUTOMATED COUNT 3.9 10*3/uL Normal [facility] Comment on above: Order Comment: Abnor mal CBC with auto diff reflexes to a manual diff Performed By: #### C BCA ####[facility] (PENDING S[facility])[address] [place] [address].[place] [address] VIR NEUTROPHILS RELATIVE PERCENT BY AUTOMATED COUNT 59.0 % Normal [facility] Comment on above: Order Comment: Abnor mal CBC with auto diff reflexes to a manual diff Performed By: #### C BCA ####[facility] ([facility]END[facility])[address] [place] [address].[place] [address] VIR Platelet mean volume (Bld) [Entitic vol] 8.9 fL Normal 7-12 [facility] Comment on above: Order Comment: Abnor mal CBC with auto diff reflexes to a manual diff Performed By: #### C BCA ####[facility] ([facility]END[facility])[address] [place] [address].[place] [address] VIR Platelets (Bld) [#/Vol] 251 10*3/uL Normal 150-450 [facility] Comment on above: Order Comment: Abnor mal CBC with auto diff reflexes to a manual diff Performed By: #### C BCA ####[facility] ([address] [place] [address] VIR RBC COUNT 3.26 X10E12/L Low 3.8-5.2 [facility] Comment on above: Order Comment: Abnor mal CBC with auto diff reflexes to a manual diff Performed By: #### C BCA ####[facility] ([address] [place] [address] VIR WBC (Bld) [#/Vol] 6.6 10*3/uL Normal 4-11 [facility] Comment on above: Order Comment: Abnor mal CBC with auto diff reflexes to a manual diff Performed By: #### C BCA ####[facility] (PEND[facility])[address] [place] [address].[place] [address] VIR CK TOTALon 03-12-2025 CPK 89 U/L Normal 24-170 [facility] Comment on above: Performed By: #### C PK ####[facility] ([facility]END[facility])[address] [place] [address] VIR 36on 03-07-2025 36 Partial labs are in media with the CK and CBC still pending with no results at this time Normal [facility] 36on 02-26-2025 36 Opat received. Heather rmed orders for meds, labs ,Eots with Sonia at [facility]. Follow up appt scheduled. Normal [facility] 36 Call to Sonia at [facility] and confirmed antibiotic orders, weekly labs and EOTs. Follow up appt scheduled. Normal [facility] CBC AND AUTO DIFFon 02-25-20 25 ABSOLUTE BASOPHIL 0.0 X10E9/L Normal 0.0-0.2 [facility] Comment on above: Performed By: #### C FAITH, CBCA, #### [facility] ([id number]) [address], [address] [place] [address] ABSOLUTE NEUTROPHIL 3.4 X10E9/L Normal 1.5-6.6 [facility] Comment on above: Performed By: #### C FAITH, CBCA, #### [facility] ([id number]) [address], [address] [place] [address] Basophils/100 WBC (Bld) 0.6 % Normal [facility] Comment on above: Performed By: #### C FAITH, CBCA, #### [facility] ([id number]) [address], [address] [place] [address] Eosinophils (Bld) [#/Vol] 0.3 10*3/uL Normal 0.0-0.4 [facility] Comment on above: Performed By: #### C MP, CBCA, #### [facility] ([id number]) [address], [address] [place] [address] Eosinophils/100 WBC (Bld) 4.3 % Normal [facility] Comment on above: Performed By: #### C FAITH, CBCA, #### [facility] ([id number]) [address], [address] [place] [address] Erythrocyte distribution width (RBC) [Ratio] 18.2 % High 11.5-15.0 [facility] Comment on above: Performed By: #### C FAITH, CBCA, #### [facility] ([id number]) [address], [address] [place] [address] Hematocrit (Bld) [Volume fraction] 24.1 % Low 35-47 [facility] Comment on above: Performed By: #### C FAITH, CBCA, #### [facility] ([id number]) [address], [address] [place] [address] Hemoglobin (Bld) [Mass/Vol] 7.9 g/dL Low 11.7-15.5 [facility] Comment on above: Performed By: #### C FAITH, CBCA, #### [facility] ([id number]) [address], [address] [place] [address] Lymphocytes (Bld) [#/Vol] 2.0 10*3/uL Normal 1.0-3.5 [facility] Comment on above: Performed By: #### C FAITH, CBCA, #### [facility] ([id number]) [address], [address] [place] [address] Lymphocytes/100 WBC (Bld) 30.7 % Normal [facility] Comment on above: Performed By: #### C FAITH, CBCA, #### [facility] ([id number]) [address], [address] [place] [address] MCH (RBC) [Entitic mass] 27.7 pg Normal 27-34 [facility] Comment on above: Performed By: #### C FAITH, CBCA, #### [facility] ([id number]) [address], [address] [place] [address] MCHC (RBC) [Mass/Vol] 32.7 g/dL Normal 32-36 [facility] Comment on above: Performed By: #### C FAITH, CBCA, #### [facility] ([id number]) [address], [address] [place] [address] MCV (RBC) [Entitic vol] 85 fL Normal 80-100 [facility] Comment on above: Performed By: #### C FAITH, CBCA, #### [facility] ([id number]) [address], [address] [place] [address] Monocytes (Bld) [#/Vol] 0.8 10*3/uL Normal 0-0.9 [facility] Comment on above: Performed By: #### C FAITH, CBCA, #### [facility] ([id number]) [address], [address] [place] [address] Monocytes/100 WBC (Bld) 12.3 % Normal [facility] Comment on above: Performed By: #### C FAITH, CBCA, #### [facility] ([id number]) [address], [address] [place] [address] Neutrophils/100 WBC (Bld) 52.1 % Normal [facility] Comment on above: Performed By: #### C FAITH, CBCA, #### [facility] ([id number]) [address], [address] [place] [address] Platelet mean volume (Bld) [Entitic vol] 7.9 fL Normal 7-12 [facility] Comment on above: Performed By: #### C FAITH, CBCA, #### [facility] ([id number]) [address] [address] Platelets (Bld) [#/Vol] 334 10*3/uL Normal 150-450 [facility] Comment on above: Performed By: #### C FAITH, CBCA, #### [facility] ([id number]) [address] [place] [address] RBC COUNT 2.84 X10E12/L Low 3.80-5.20 [facility] Comment on above: Performed By: #### C FAITH, CBCA, #### [facility] ([id number]) [address] [address] WBC (Bld) [#/Vol] 6.6 10*3/uL Normal 4.0-11.0 [facility] Comment on above: Performed By: #### C FAITH, CBCA, #### [facility] ([id number]) [address] [address] CK [Catalytic activity/Vol]o n 02-24-2025 CPK 26 U/L Normal 24-170 [facility] Comment on above: Performed By: #### C FAITH, CBCA, #### [facility] ([id number]) [address], [address] [place] [address] COMPREHENSIVE METABOLIC PANE Dickson 02-24-2025 Albumin [Mass/Vol] 3.3 g/dL Normal 3.2-5.3 [facility] Comment on above: Performed By: #### C FAITH, CBCA, #### [facility] ([id number]) [address] [place] [address] ALP [Catalytic activity/Vol] 90 U/L Normal 39-130 [facility] Comment on above: Performed By: #### C CARMEN CUEVAS, #### [facility] ([id number]) [address], [address] [place] [address] ALT [Catalytic activity/Vol] 18 U/L Normal 0-31 [facility] Comment on above: Performed By: #### C CARMEN CUEVAS, #### [facility] ([id number]) [address], [address] [place] [address] Anion gap [Moles/Vol] 6 mmol/L Normal 5-15 [facility] Comment on above: Performed By: #### C CARMEN CUEVAS, #### [facility] ([id number]) [address], [address] [place] [address] AST [Catalytic activity/Vol] 17 U/L Normal 0-41 [facility] Comment on above: Performed By: #### CARMEN Maravilla MP, #### [facility] ([id number]) [address], [address] [place] [address] Bilirubin [Mass/Vol] 0.3 mg/dL Normal 0.3-1.2 [facility] Comment on above: Performed By: #### CARMEN Maravilla MP, #### [facility] ([id number]) [address], [address] [place] [address] Calcium [Mass/Vol] 8.5 mg/dL Normal 8.5-10.5 [facility] Comment on above: Performed By: #### C CARMEN CUEVAS, #### [facility] ([id number]) [address], [address] [place] [address] Chloride [Moles/Vol] 105 mmol/L Normal 98-109 [facility] Comment on above: Performed By: #### C CARMEN CUEVAS, #### [facility] ([id number]) [address], [address] [place] [address] CO2 [Moles/Vol] 28 mmol/L Normal 22-32 [facility] Comment on above: Performed By: #### C CARMEN CUEVAS, #### [facility] ([id number]) [address], [address] [place] [address] Creatinine [Mass/Vol] 1.81 mg/dL High 0.40-1.00 [facility] Comment on above: Result Comment: METH OD TRACEABLE TO IDMS STANDARD Performed By: #### C CARMEN CUEVAS, #### [facility] ([id number]) [address], [address] [place] [address] GFR/1.73 sq M.predicted among non-blacks MDRD (S/P/Bld) [Vol rate/Area] 28 mL/min/{1.73_m2} Low >59 [facility] Comment on above: Result Comment: Reported eGFR is based on the CKD-EPI 2020 equation that does not use a race coefficient. Performed By: #### C CARMEN CUEVAS, #### [facility] ([id number]) [address], [address] [place] [address] Glucose [Mass/Vol] 113 mg/dL High 65-99 [facility] Comment on above: Performed By: #### C CARMEN CUEVAS, #### [facility] ([id number]) [address], [address] [place] [address] Potassium [Moles/Vol] 4.8 mmol/L Normal 3.5-5.0 [facility] Comment on above: Performed By: #### C CARMEN CUEVAS, #### [facility] ([id number]) [address], [address] [place] [address] Protein [Mass/Vol] 6.5 g/dL Normal 6.0-8.0 [facility] Comment on above: Performed By: #### C FAITH CBCA, #### [facility] ([id number]) [address], [address] [place] [address] Sodium [Moles/Vol] 139 mmol/L Normal 134-146 [facility] Comment on above: Performed By: #### C FAITH CBCA, #### [facility] ([id number]) [address], [address] [place] [address] Urea nitrogen [Mass/Vol] 28 mg/dL High 5-27 [facility] Comment on above: Performed By: #### C FAITH CBCA, #### [facility] ([id number]) [address], [address] [address] Glucose Glucometer (BldC) [M ass/Vol]on 02-24-2025 Glucose [Mass/Vol] 266 mg/dL High 65-99 [facility] Glucose [Mass/Vol] 127 mg/dL High 65-99 [facility] MAGNESIUMon 02-24-2025 Magnesium [Mass/Vol] 2.2 mg/dL Normal 1.8-2.6 [facility] Comment on above: Performed By: #### C FAITH CBCA, #### [facility] ([id number]) [address], [address] [place] [address] CBC AND AUTO DIFFon 02-24-20 25 Band form neutrophils/100 WBC (Bld) 1.1 % Normal [facility] Comment on above: Performed By: #### C FAITH CBCA, #### [facility] ([id number]) [address], [address] [place] [address] Eosinophils (Bld) [#/Vol] 0.3 10*3/uL Normal 0.0-0.4 [facility] Comment on above: Performed By: #### C FAITH, CBCA, #### [facility] ([id number]) [address], [facility] [address] [place] [address] Eosinophils/100 WBC (Bld) 4.3 % Normal [facility] Comment on above: Performed By: #### C FAITH, CBCA, #### [facility] ([id number]) [address] [address] [place] [address] Erythrocyte distribution width (RBC) [Ratio] 17.8 % High 11.5-15.0 [facility] Comment on above: Performed By: #### C FAITH, CBCA, #### [facility] ([id number]) [address], [facility] [address] [place] [address] FRAGMENT 1+ Abnormal NONE [facility] Comment on above: Performed By: #### C FAITH, CBCA, #### [facility] ([id number]) [address], [facility] [address] [place] [address] Hematocrit (Bld) [Volume fraction] 25.6 % Low 35-47 [facility] Comment on above: Performed By: #### C FAITH, CBCA, #### [facility] ([id number]) [address], [facility] [address] [place] [address] Hemoglobin (Bld) [Mass/Vol] 8.4 g/dL Low 11.7-15.5 [facility] Comment on above: Performed By: #### C FAITH, CBCA, #### [facility] ([id number]) [address] [address] [place] [address] Lymphocytes (Bld) [#/Vol] 1.9 10*3/uL Normal 1.0-3.5 [facility] Comment on above: Performed By: #### C FAITH, CBCA, #### [facility] ([id number]) [address], [address] [place] [address] Lymphocytes/100 WBC (Bld) 30.1 % Normal [facility] Comment on above: Performed By: #### C FAITH, CBCA, #### [facility] ([id number]) [address], [facility] [address] [place] [address] MCH (RBC) [Entitic mass] 27.5 pg Normal 27-34 [facility] Comment on above: Performed By: #### C FAITH, CBCA, #### [facility] ([id number]) [address], [facility] [address] [place] [address] MCHC (RBC) [Mass/Vol] 32.7 g/dL Normal 32-36 [facility] Comment on above: Performed By: #### C FAITH, CBCA, #### [facility] ([id number]) [address], [facility] [address] [place] [address] MCV (RBC) [Entitic vol] 84 fL Normal 80-100 [facility] Comment on above: Performed By: #### C FAITH, CBCA, #### [facility] ([id number]) [address], [address] [place] [address] Metamyelocytes/10 0 WBC (Bld) 1.1 % Normal [facility] Comment on above: Performed By: #### C FAITH, CBCA, #### [facility] ([id number]) [address], [facility] [address] [place] [address] Monocytes (Bld) [#/Vol] 0.8 10*3/uL Normal 0-0.9 [facility] Comment on above: Performed By: #### C FAITH, CBCA, #### [facility] ([id number]) [address], [address] [place] [address] Monocytes/100 WBC (Bld) 12.9 % Normal [facility] Comment on above: Performed By: #### C FAITH, CBCA, #### [facility] ([id number]) [address], [address] [place] [address] MYELOCYTE 1.1 % Normal [facility] Comment on above: Performed By: #### C FAITH, CBCA, #### [facility] ([id number]) [address], [address] [place] [address] Neutrophils (Bld) [#/Vol] 3.3 10*3/uL Normal 1.5-6.6 [facility] Comment on above: Performed By: #### C FAITH, CBCA, #### [facility] ([id number]) [address], [address] [place] [address] NUCLEATED RBC 2.2 /100 WBC High 0.0-1.0 [facility] Comment on above: Performed By: #### C FAITH, CBCA, #### [facility] ([id number]) [address], [address] [place] [address] OVALOCYTE 1+ Abnormal NONE [facility] Comment on above: Performed By: #### C FAITH, CBCA, #### [facility] ([id number]) [address], [address] [place] [address] Platelet mean volume (Bld) [Entitic vol] 8.0 fL Normal 7-12 [facility] Comment on above: Performed By: #### C FAITH, CBCA, #### [facility] ([id number]) [address], [address] [place] [address] Platelets (Bld) [#/Vol] 353 10*3/uL Normal 150-450 [facility] Comment on above: Performed By: #### C FAITH CBCA, #### [facility] ([id number]) [address], [address] [place] [address] POLYCHROMASIA 1+ Abnormal NONE [facility] Comment on above: Performed By: #### C FAITH, CBCA, #### [facility] ([id number]) [address], [address] [place] [address] RBC COUNT 3.04 X10E12/L Low 3.80-5.20 [facility] Comment on above: Performed By: #### C FAITH, CBCA, #### [facility] ([id number]) [address], [address] [place] [address] SEG NEUTROPHIL 49.4 % Normal [facility] Comment on above: Performed By: #### C FAITH CBCA, #### [facility] ([id number]) [address], [address] [place] [address] WBC (Bld) [#/Vol] 6.4 10*3/uL Normal 4.0-11.0 [facility] Comment on above: Performed By: #### C FAITH, CBCA, #### [facility] ([id number]) [address], [address] [place] [address] COMPREHENSIVE METABOLIC PANE Dickson 02-23-2025 Albumin [Mass/Vol] 3.2 g/dL Normal 3.2-5.3 [facility] Comment on above: Performed By: #### C FAITH, CBCA, #### [facility] ([id number]) [address], [address] [place] [address] ALP [Catalytic activity/Vol] 103 U/L Normal 39-130 [facility] Comment on above: Performed By: #### C FAITH CBCDanielle, #### [facility] ([id number]) [address], [address] [place] [address] ALT [Catalytic activity/Vol] 20 U/L Normal 0-31 [facility] Comment on above: Performed By: #### C FAITH CBCA, #### [facility] ([id number]) [address], [address] [place] [address] Anion gap [Moles/Vol] 8 mmol/L Normal 5-15 [facility] Comment on above: Performed By: #### C FAITH CBCA, #### [facility] ([id number]) [address], [address] [place] [address] AST [Catalytic activity/Vol] 22 U/L Normal 0-41 [facility] Comment on above: Performed By: #### C FAITH CBCA, #### [facility] ([id number]) [address], [address] [place] [address] Bilirubin [Mass/Vol] 0.3 mg/dL Normal 0.3-1.2 [facility] Comment on above: Performed By: #### Renita CUEVAS CBCDanielle, #### [facility] ([id number]) [address], [address] [place] [address] Calcium [Mass/Vol] 8.8 mg/dL Normal 8.5-10.5 [facility] Comment on above: Performed By: #### C FAITH CBCA, #### [facility] ([id number]) [address], [address] [place] [address] Chloride [Moles/Vol] 104 mmol/L Normal 98-109 [facility] Comment on above: Performed By: #### Renita CUEVAS CBCA, #### [facility] ([id number]) [address], [address] [place] [address] CO2 [Moles/Vol] 27 mmol/L Normal 22-32 [facility] Comment on above: Performed By: #### C CARMEN CUEVAS, #### [facility] ([id number]) [address], [address] [place] [address] Creatinine [Mass/Vol] 1.86 mg/dL High 0.40-1.00 [facility] Comment on above: Result Comment: METH OD TRACEABLE TO IDMS STANDARD Performed By: #### C CARMEN CUEVAS, #### [facility] ([id number]) [address], [address] [place] [address] GFR/1.73 sq M.predicted among non-blacks MDRD (S/P/Bld) [Vol rate/Area] 27 mL/min/{1.73_m2} Low >59 [facility] Comment on above: Result Comment: Reported eGFR is based on the CKD-EPI 2020 equation that does not use a race coefficient. Performed By: #### C CARMEN CUEVAS, #### [facility] ([id number]) [address], [address] [place] [address] Glucose [Mass/Vol] 158 mg/dL High 65-99 [facility] Comment on above: Performed By: #### CARMEN Maravilla MP, #### [facility] ([id number]) [address], [address] [place] [address] Potassium [Moles/Vol] 5.1 mmol/L High 3.5-5.0 [facility] Comment on above: Performed By: #### CARMEN Maravilla MP, #### [facility] ([id number]) [address], [address] [place] [address] Protein [Mass/Vol] 6.6 g/dL Normal 6.0-8.0 [facility] Comment on above: Performed By: #### C CARMEN CUEVAS, #### [facility] ([id number]) [address], [address] [place] [address] Sodium [Moles/Vol] 139 mmol/L Normal 134-146 [facility] Comment on above: Performed By: #### CARMEN Maravilla MP, #### [facility] ([id number]) [address], [address] [place] [address] Urea nitrogen [Mass/Vol] 24 mg/dL Normal 5-27 [facility] Comment on above: Performed By: #### CARMEN Maravilla MP, #### [facility] ([id number]) [address], [address] [place] [address] Glucose Glucometer (BldC) [M ass/Vol]on 02-23-2025 Glucose [Mass/Vol] 265 mg/dL High 65-99 [facility] Glucose [Mass/Vol] 184 mg/dL High 65-99 [facility] Glucose [Mass/Vol] 200 mg/dL High 65-99 [facility] Glucose [Mass/Vol] 156 mg/dL High 65-99 [facility] Glucose [Mass/Vol] 170 mg/dL High 65-99 [facility] MAGNESIUMon 02-23-2025 Magnesium [Mass/Vol] 2.3 mg/dL Normal 1.8-2.6 [facility] Comment on above: Performed By: #### CARMEN Maravilla MP, #### [facility] ([id number]) [address], [address] [place] [address] Natriuretic peptide B [Mass/ Vol]on 02-23-2025 Natriuretic peptide B (Bld) [Mass/Vol] 37 pg/mL Normal <100.0 [facility] Comment on above: Performed By: #### CARMEN Maravilla MP, #### [facility] ([id number]) [address], [address] [place] [address] XR CHEST 1 VWon 02-23-2025 XR CHEST 1 VW XR CHEST 1 VW HISTORY: PICC placement COMPARISON: Chest x-ray 02/14/2025 FINDINGS: Portable AP upright view of the chest was performed. Interval placement of right upper extremity PICC extending to the cavoatrial junction. Interval removal of left chest port and catheter. Postsurgical changes consistent with TAVR. Partially visualized ventriculoperitoneal shunt tubing heart size is normal. No significant vascular congestion or airspace consolidation. No pleural effusion or pneumothorax. IMPRESSION: * Right upper extremity PICC terminates at the cavoatrial junction. Finalized by Marco Espinosa MD on 02/23/2025 3:40 PM Normal [facility] BLOOD CULTUREon 02-22-2025 Bacteria identified Aer cx Nom (Bld) SPECIMEN NOTES SUBOPTIMAL VOLUME OF BLOOD COLLECTED, RESULTS MAY BE AFFECTED. CULTURE RESULTS NO GROWTH 5 DAYS Normal [facility] Comment on above: Performed By: #### C FAITH CBCA, [id number] #### [facility] ([id number]) [address], [address] [place] [address] CBC AND AUTO DIFFon 02-23-20 25 ABSOLUTE BASOPHIL 0.1 X10E9/L Normal 0.0-0.2 [facility] Comment on above: Performed By: #### C FAITH CBCA, [id number] #### [facility] ([id number]) [address], [address] [place] [address] Band form neutrophils/100 WBC (Bld) 2.9 % Normal [facility] Comment on above: Performed By: #### C MP, CBCA, [id number] #### [facility] ([id number]) [address], [address] [place] [address] Basophils/100 WBC (Bld) 1.9 % Normal [facility] Comment on above: Performed By: #### C MP, CBCA, #### [facility] ([id number]) [address], [address] [place] [address] Eosinophils (Bld) [#/Vol] 0.2 10*3/uL Normal 0.0-0.4 [facility] Comment on above: Performed By: #### C MP, CBCA, #### [facility] ([id number]) [address], [address] [place] [address] Eosinophils/100 WBC (Bld) 3.8 % Normal [facility] Comment on above: Performed By: #### C FAITH, CBCA, #### [facility] ([id number]) [address], [address] [place] [address] Erythrocyte distribution width (RBC) [Ratio] 17.4 % High 11.5-15.0 [facility] Comment on above: Performed By: #### C FAITH, CBCA, #### [facility] ([id number]) [address], [address] [place] [address] Hematocrit (Bld) [Volume fraction] 26.5 % Low 35-47 [facility] Comment on above: Performed By: #### C FAITH, CBCA, #### [facility] ([id number]) [address], [address] [place] [address] Hemoglobin (Bld) [Mass/Vol] 8.7 g/dL Low 11.7-15.5 [facility] Comment on above: Performed By: #### C FAITH, CBCA, #### [facility] ([id number]) [address], [address] [place] [address] LYMPHOCYTE, ATYPICAL 1.0 % Normal [facility] Comment on above: Performed By: #### C FAITH, CBCA, #### [facility] ([id number]) [address], [address] [place] [address] Lymphocytes (Bld) [#/Vol] 1.3 10*3/uL Normal 1.0-3.5 [facility] Comment on above: Performed By: #### C FAITH, CBCA, #### [facility] ([id number]) [address], [address] [place] [address] Lymphocytes/100 WBC (Bld) 20.0 % Normal [facility] Comment on above: Performed By: #### C FAITH, CBCA, #### [facility] ([id number]) [address] [address] [place] [address] MCH (RBC) [Entitic mass] 27.6 pg Normal 27-34 [facility] Comment on above: Performed By: #### Renita CUEVAS, CBCA, #### [facility] ([id number]) [address], [address] [place] [address] MCHC (RBC) [Mass/Vol] 32.9 g/dL Normal 32-36 [facility] Comment on above: Performed By: #### C FAITH, CBCA, #### [facility] ([id number]) [address], [facility] [address] [place] [address] MCV (RBC) [Entitic vol] 84 fL Normal 80-100 [facility] Comment on above: Performed By: #### C FAITH, CBCA, #### [facility] ([id number]) [address], [address] [place] [address] Metamyelocytes/10 0 WBC (Bld) 1.0 % Normal [facility] Comment on above: Performed By: #### Renita CUEVAS, CBCA, #### [facility] ([id number]) [address], [address] [place] [address] Monocytes (Bld) [#/Vol] 0.5 10*3/uL Normal 0-0.9 [facility] Comment on above: Performed By: #### C FAITH CBCA, #### [facility] ([id number]) [address], [address] [place] [address] Monocytes/100 WBC (Bld) 8.6 % Normal [facility] Comment on above: Performed By: #### C FAITH CBCA, #### [facility] ([id number]) [address], [address] [place] [address] MYELOCYTE 1.0 % Normal [facility] Comment on above: Performed By: #### C FAITH CBCA, #### [facility] ([id number]) [address] [place] [address] Neutrophils (Bld) [#/Vol] 3.9 10*3/uL Normal 1.5-6.6 [facility] Comment on above: Performed By: #### C FAITH CBCA, #### [facility] ([id number]) [address], [address] [place] [address] OVALOCYTE 1+ Abnormal NONE [facility] Comment on above: Performed By: #### C FAITH CBCA, #### [facility] ([id number]) [address], [address] [place] [address] Platelet mean volume (Bld) [Entitic vol] 7.7 fL Normal 7-12 [facility] Comment on above: Performed By: #### C FAITH CBCA, #### [facility] ([id number]) [address], [address] [place] [address] Platelets (Bld) [#/Vol] 367 10*3/uL Normal 150-450 [facility] Comment on above: Performed By: #### C FAITH, CBCA, #### [facility] ([id number]) [address], [address] [place] [address] POLYCHROMASIA 1+ Abnormal NONE [facility] Comment on above: Performed By: #### C FAITH, CBCA, #### [facility] ([id number]) [address], [address] [place] [address] RBC COUNT 3.16 X10E12/L Low 3.80-5.20 [facility] Comment on above: Performed By: #### C FAITH, CBCA, #### [facility] ([id number]) [address] [place] [address] SEG NEUTROPHIL 59.8 % Normal [facility] Comment on above: Performed By: #### C FAITH, CBCA, #### [facility] ([id number]) [address], [address] [place] [address] WBC (Bld) [#/Vol] 6.1 10*3/uL Normal 4.0-11.0 [facility] Comment on above: Performed By: #### C FAITH, CBCA, #### [facility] ([id number]) [address], [address] [place] [address] COMPREHENSIVE METABOLIC PANE Dickson 02-22-2025 Albumin [Mass/Vol] 3.4 g/dL Normal 3.2-5.3 [facility] Comment on above: Performed By: #### C FAITH, CBCA, #### [facility] ([id number]) [address], [address] [place] [address] ALP [Catalytic activity/Vol] 105 U/L Normal 39-130 [facility] Comment on above: Performed By: #### C FAITH, CBCA, #### [facility] ([id number]) [address], [address] [place] [address] ALT [Catalytic activity/Vol] 24 U/L Normal 0-31 [facility] Comment on above: Performed By: #### C FAITH CBCA, #### [facility] ([id number]) [address], [address] [place] [address] Anion gap [Moles/Vol] 7 mmol/L Normal 5-15 [facility] Comment on above: Performed By: #### C FAITH CBCA, #### [facility] ([id number]) [address], [address] [place] [address] AST [Catalytic activity/Vol] 25 U/L Normal 0-41 [facility] Comment on above: Performed By: #### C FAITH CBCA, #### [facility] ([id number]) [address], [address] [place] [address] Bilirubin [Mass/Vol] 0.3 mg/dL Normal 0.3-1.2 [facility] Comment on above: Performed By: #### C FAITH CBCA, #### [facility] ([id number]) [address], [address] [place] [address] Calcium [Mass/Vol] 9.3 mg/dL Normal 8.5-10.5 [facility] Comment on above: Performed By: #### C FAITH CBCA, #### [facility] ([id number]) [address], [address] [place] [address] Chloride [Moles/Vol] 101 mmol/L Normal 98-109 [facility] Comment on above: Performed By: #### C FAITH CBCA, #### [facility] ([id number]) [address], [address] [place] [address] CO2 [Moles/Vol] 30 mmol/L Normal 22-32 [facility] Comment on above: Performed By: #### C CARMEN CUEVAS, #### [facility] ([id number]) [address], [address] [place] [address] Creatinine [Mass/Vol] 1.72 mg/dL High 0.40-1.00 [facility] Comment on above: Result Comment: METH OD TRACEABLE TO IDMS STANDARD Performed By: #### C CARMEN CUEVAS, #### [facility] ([id number]) [address], [facility] [address] [place] [address] GFR/1.73 sq M.predicted among non-blacks MDRD (S/P/Bld) [Vol rate/Area] 30 mL/min/{1.73_m2} Low >59 [facility] Comment on above: Result Comment: Reported eGFR is based on the CKD-EPI 2020 equation that does not use a race coefficient. Performed By: #### CARMEN Maravilla MP, #### [facility] ([id number]) [address], [address] [place] [address] Glucose [Mass/Vol] 67 mg/dL Normal 65-99 [facility] Comment on above: Performed By: #### CARMEN Maravilla MP, #### [facility] ([id number]) [address], [address] [place] [address] Potassium [Moles/Vol] 4.6 mmol/L Normal 3.5-5.0 [facility] Comment on above: Performed By: #### CARMEN Maravilla MP, #### [facility] ([id number]) [address], [address] [place] [address] Protein [Mass/Vol] 7.0 g/dL Normal 6.0-8.0 [facility] Comment on above: Performed By: #### CARMEN Maravilla MP, #### [facility] ([id number]) [address], [address] [place] [address] Sodium [Moles/Vol] 138 mmol/L Normal 134-146 [facility] Comment on above: Performed By: #### C FAITH CBCA, #### [facility] ([id number]) [address], [facility] [address] [place] [address] Urea nitrogen [Mass/Vol] 19 mg/dL Normal 5-27 [facility] Comment on above: Performed By: #### C CARMEN CUEVAS, #### [facility] ([id number]) [address], [address] [address] Glucose Glucometer (BldC) [M ass/Vol]on 02-22-2025 Glucose [Mass/Vol] 171 mg/dL High 65-99 [facility] Glucose [Mass/Vol] 209 mg/dL High 65-99 [facility] Glucose [Mass/Vol] 149 mg/dL High 65-99 [facility] Glucose [Mass/Vol] 79 mg/dL Normal 65-99 [facility] MAGNESIUMon 02-22-2025 Magnesium [Mass/Vol] 2.5 mg/dL Normal 1.8-2.6 [facility] Comment on above: Performed By: #### C FAITH CBCA, #### [facility] ([id number]) [address], [facility] [address] [place] [address] BLOOD CULTUREon 02-21-2025 Bacteria identified Aer cx Nom (Bld) SPECIMEN NOTES SUBOPTIMAL VOLUME OF BLOOD COLLECTED, RESULTS MAY BE AFFECTED. CULTURE RESULTS NO GROWTH 5 DAYS Normal [facility] Comment on above: Performed By: #### C INO CUEVASA, #### [facility] ([id number]) [address] [address] [place] [address] CBC AND AUTO DIFFon 02-22-20 25 Band form neutrophils/100 WBC (Bld) 1.0 % Normal [facility] Comment on above: Performed By: #### Renita HENSON CMP, ####[facility] ([id number])[address] [address], [place] [address] Eosinophils (Bld) [#/Vol] 0.2 10*3/uL Normal 0.0-0.4 [facility] Comment on above: Performed By: #### Renita HENSON CMP, ####[facility] ([id number])[address] [address], [place] [address] Eosinophils/100 WBC (Bld) 3.0 % Normal [facility] Comment on above: Performed By: #### Renita HENSON CMP, ####[facility] ([id number])[address] [address], [place] [address] Erythrocyte distribution width (RBC) [Ratio] 16.8 % High 11.5-15.0 [facility] Comment on above: Performed By: #### Renita HENSON CMP, ####[facility] ([id number])[address] [address], [place] [address] Hematocrit (Bld) [Volume fraction] 25.6 % Low 35-47 [facility] Comment on above: Performed By: #### Rneita HENSON CMP, ####[facility] ([id number])[address] [address], [place] [address] Hemoglobin (Bld) [Mass/Vol] 8.5 g/dL Low 11.7-15.5 [facility] Comment on above: Performed By: #### Renita HENSON CMP, ####[facility] ([id number])[address] [address], [place] [address] HYPOCHROMIA 1+ Abnormal NONE [facility] Comment on above: Performed By: #### C RUBEN HENSON, ####[facility] ([id number])[address], [address], [place] [address] Lymphocytes (Bld) [#/Vol] 1.0 10*3/uL Normal 1.0-3.5 [facility] Comment on above: Performed By: #### Renita HENSON CMP, ####[facility] ([id number])[address], [address], [place] [address] Lymphocytes/100 WBC (Bld) 15.0 % Normal [facility] Comment on above: Performed By: #### Renita HENSON CMP, ####[facility] ([id number])[address], [address], [place] [address] MCH (RBC) [Entitic mass] 27.4 pg Normal 27-34 [facility] Comment on above: Performed By: #### Renita HENSON CMP, ####[facility] ([id number])[address] [address], [place] [address] MCHC (RBC) [Mass/Vol] 33.2 g/dL Normal 32-36 [facility] Comment on above: Performed By: #### Renita HENSON CMP, ####[facility] ([id number])[address] [address] [place] [address] MCV (RBC) [Entitic vol] 83 fL Normal 80-100 [facility] Comment on above: Performed By: #### Renita HENSON CMP, ####[facility] ([id number])[address] [address], [place] [address] Metamyelocytes/10 0 WBC (Bld) 2.0 % Normal [facility] Comment on above: Performed By: #### Renita HENSON CMP, ####[facility] ([id number])[address], [address], [place] [address] Monocytes (Bld) [#/Vol] 0.7 10*3/uL Normal 0-0.9 [facility] Comment on above: Performed By: #### C BCA, CMP, ####[facility] ([id number])[address], [address], [place] [address] Monocytes/100 WBC (Bld) 11.0 % Normal [facility] Comment on above: Performed By: #### C BCA, CMP, ####[facility] ([id number])[address], [address], [place] [address] MYELOCYTE 4.0 % Normal [facility] Comment on above: Performed By: #### Renita BCA, CMP, ####[facility] ([id number])[address], [address], [place] [address] Neutrophils (Bld) [#/Vol] 4.4 10*3/uL Normal 1.5-6.6 [facility] Comment on above: Performed By: #### Renita BCA, CMP, ####[facility] ([id number])[address], [address], [place] [address] Platelet mean volume (Bld) [Entitic vol] 8.2 fL Normal 7-12 [facility] Comment on above: Performed By: #### C BCA, CMP, ####[facility] ([id number])[address], [address], [place] [address] Platelets (Bld) [#/Vol] 343 10*3/uL Normal 150-450 [facility] Comment on above: Performed By: #### Renita BCA, CMP, ####[facility] ([id number])[address], [address], [place] [address] POLYCHROMASIA 1+ Abnormal NONE [facility] Comment on above: Performed By: #### C NATIVIDAD, CMP, ####[facility] ([id number])[address], [address], [place] [address] RBC COUNT 3.10 X10E12/L Low 3.80-5.20 [facility] Comment on above: Performed By: #### C BCA, CMP, ####[facility] ([id number])[address], [address], [place] [address] SEG NEUTROPHIL 64.0 % Normal [facility] Comment on above: Performed By: #### C NATIVIDAD, CMP, ####[facility] ([id number])[address], [address], [place] [address] WBC (Bld) [#/Vol] 6.7 10*3/uL Normal 4.0-11.0 [facility] Comment on above: Performed By: #### C NATIVIDAD, CMP, 07198-7 ####[facility] ([id number])[address], [address] [place] [address] COMPREHENSIVE METABOLIC PANE Dickson 02-21-2025 Albumin [Mass/Vol] 3.4 g/dL Normal 3.2-5.3 [facility] Comment on above: Performed By: #### C BCA, CMP, ####[facility] ([id number])[address], [address], [place] [address] ALP [Catalytic activity/Vol] 112 U/L Normal 39-130 [facility] Comment on above: Performed By: #### C BCA, CMP, ####[facility] ([id number])[address], [address] [place] [address] ALT [Catalytic activity/Vol] 22 U/L Normal 0-31 [facility] Comment on above: Performed By: #### C BCA, CMP, ####[facility] ([id number])[address], [address], [place] [address] Anion gap [Moles/Vol] 10 mmol/L Normal 5-15 [facility] Comment on above: Performed By: #### C BCA, CMP, ####[facility] ([id number])[address], [address], [place] [address] AST [Catalytic activity/Vol] 26 U/L Normal 0-41 [facility] Comment on above: Performed By: #### C BCA, CMP, ####[facility] ([id number])[address], [address], [place] [address] Bilirubin [Mass/Vol] 0.3 mg/dL Normal 0.3-1.2 [facility] Comment on above: Performed By: #### C BCA, CMP, ####[facility] ([id number])[address], [address], [place] [address] Calcium [Mass/Vol] 9.2 mg/dL Normal 8.5-10.5 [facility] Comment on above: Performed By: #### C BCA, CMP, ####[facility] ([id number])[address], [address], [place] [address] Chloride [Moles/Vol] 101 mmol/L Normal 98-109 [facility] Comment on above: Performed By: #### C BCA, CMP, ####[facility] ([id number])[address], [address], [place] [address] CO2 [Moles/Vol] 28 mmol/L Normal 22-32 [facility] Comment on above: Performed By: #### C BCA, CMP, ####[facility] ([id number])[address] [address] [address] Creatinine [Mass/Vol] 1.50 mg/dL High 0.40-1.00 [facility] Comment on above: Result Comment: METH OD TRACEABLE TO IDMS STANDARD Performed By: #### C RUBEN HENSON, ####[facility] ([id number])[address] [address] [place] [address] GFR/1.73 sq M.predicted among non-blacks MDRD (S/P/Bld) [Vol rate/Area] 35 mL/min/{1.73_m2} Low >59 [facility] Comment on above: Result Comment: Reported eGFR is based on the CKD-EPI 2020 equation that does not use a race coefficient. Performed By: #### C RUBEN HENSON, ####[facility] ([id number])[address] [address], [place] [address] Glucose [Mass/Vol] 108 mg/dL High 65-99 [facility] Comment on above: Performed By: #### C RUBEN HENSON, ####[facility] ([id number])[address] [address] [place] [address] Potassium [Moles/Vol] 4.5 mmol/L Normal 3.5-5.0 [facility] Comment on above: Performed By: #### C RUBEN HENSON, ####[facility] ([id number])[address] [address] [place] [address] Protein [Mass/Vol] 6.6 g/dL Normal 6.0-8.0 [facility] Comment on above: Performed By: #### C RUBEN HENSON, ####[facility] ([id number])[address] [address] [place] [address] Sodium [Moles/Vol] 139 mmol/L Normal 134-146 [facility] Comment on above: Performed By: #### C BCA, CMP, 82267-9 ####[facility] ([id number])[address], [address] [place] [address] Urea nitrogen [Mass/Vol] 15 mg/dL Normal 5-27 [facility] Comment on above: Performed By: #### C NATIVIDAD, CMP, 98070-7 ####[facility] ([id number])[address], [address] [place] [address] Glucose Glucometer (BldC) [M ass/Vol]on 02-21-2025 Glucose [Mass/Vol] 186 mg/dL High 65-99 [facility] Glucose [Mass/Vol] 189 mg/dL High 65-99 [facility] Glucose [Mass/Vol] 165 mg/dL High 65-99 [facility] Glucose [Mass/Vol] 123 mg/dL High 65-99 [facility] MAGNESIUMon 02-21-2025 Magnesium [Mass/Vol] 2.6 mg/dL Normal 1.8-2.6 [facility] Comment on above: Performed By: #### 1 9123-9 ####[facility] ([id number])[address], [address] [place] [address] Magnesium [Mass/Vol] 1.8 mg/dL Normal 1.8-2.6 [facility] Comment on above: Performed By: #### C BCA, CMP, ####[facility] ([id number])[address], [address] [place] [address] CBC AND AUTO DIFFon 02-21-20 25 Band form neutrophils/100 WBC (Bld) 1.0 % Normal [facility] Comment on above: Performed By: #### 1 9123-9, CMP, CBCA, 2157-04 ####[facility] ([id number])[address], [address] [place] [address] Eosinophils (Bld) [#/Vol] 0.3 10*3/uL Normal 0.0-0.4 [facility] Comment on above: Performed By: #### 1 9123-9, CMP, CBCA, 2157-04 ####[facility] ([id number])[address], [address] [place] [address], [place] [address] Eosinophils/100 WBC (Bld) 4.0 % Normal [facility] Comment on above: Performed By: #### 1 9123-9, CMP, CBCA, 2157-04 ####[facility] ([id number])[address], [address] [place] [address] Erythrocyte distribution width (RBC) [Ratio] 17.2 % High 11.5-15.0 [facility] Comment on above: Performed By: #### 1 9123-9, CMP, CBCA, 2157-04 ####[facility] ([id number])[address], [address], [place] [address] FRAGMENT 1+ Abnormal NONE [facility] Comment on above: Performed By: #### 1 9123-9, CMP, CBCA, 2157-04 ####[facility] ([id number])[address], [address] [place] [address], [place] [address] Hematocrit (Bld) [Volume fraction] 23.6 % Low 35-47 [facility] Comment on above: Performed By: #### 1 9123-9, CMP, CBCA, 2157-04 ####[facility] ([id number])[address], [address], [place] [address] Hemoglobin (Bld) [Mass/Vol] 7.9 g/dL Low 11.7-15.5 [facility] Comment on above: Performed By: #### 1 9123-9, CMP, CBCA, 2157-04 ####[facility] ([id number])[address], [address], [place] [address] HYPOCHROMIA 1+ Abnormal NONE [facility] Comment on above: Performed By: #### 1 9123-9, CMP, CBCA, 2157-04 ####[facility] ([id number])[address], [address] [place] [address] Lymphocytes (Bld) [#/Vol] 1.8 10*3/uL Normal 1.0-3.5 [facility] Comment on above: Performed By: #### 1 9123-9, CMP, CBCA, 2157-04 ####[facility] ([id number])[address], [address] [place] [address] Lymphocytes/100 WBC (Bld) 23.2 % Normal [facility] Comment on above: Performed By: #### 1 9123-9, CMP, CBCA, 2157-04 ####[facility] ([id number])[address], [address] [place] [address] MCH (RBC) [Entitic mass] 27.7 pg Normal 27-34 [facility] Comment on above: Performed By: #### 1 9123-9, CMP, CBCA, 2157-04 ####[facility] ([id number])[address] [address] [place] [address] MCHC (RBC) [Mass/Vol] 33.2 g/dL Normal 32-36 [facility] Comment on above: Performed By: #### 1 9123-9, CMP, CBCA, 2157-04 ####[facility] ([id number])[address], [address] [place] [address] MCV (RBC) [Entitic vol] 83 fL Normal 80-100 [facility] Comment on above: Performed By: #### 1 9123-9, CMP, CBCA, 2157-04 ####[facility] ([id number])[address], [address] [place] [address] Metamyelocytes/10 0 WBC (Bld) 1.0 % Normal [facility] Comment on above: Performed By: #### 1 9123-9, CMP, CBCA, 2156- ####[facility] ([id number])[address], [address], [place] [address] Monocytes (Bld) [#/Vol] 0.9 10*3/uL Normal 0-0.9 [facility] Comment on above: Performed By: #### 1 23-9, CMP, CBCA, 2157-04 ####[facility] ([id number])[address], [address], [place] [address] Monocytes/100 WBC (Bld) 12.1 % Normal [facility] Comment on above: Performed By: #### 1 9123-9, CMP, CBCA, 2156- ####[facility] ([id number])[address], [address], [place] [address] MYELOCYTE 3.0 % Normal [facility] Comment on above: Performed By: #### 1 9123-9, CMP, CBCA, 2157-04 ####[facility] ([id number])[address] [address], [place] [address] Neutrophils (Bld) [#/Vol] 4.4 10*3/uL Normal 1.5-6.6 [facility] Comment on above: Performed By: #### 1 9123-9, CMP, CBCA, 2156- ####[facility] ([id number])[address], [address] [place] [address] Platelet mean volume (Bld) [Entitic vol] 8.4 fL Normal 7-12 [facility] Comment on above: Performed By: #### 1 9123-9, CMP, CBCA, 2156- ####[facility] ([id number])[address] [address] Platelets (Bld) [#/Vol] 320 10*3/uL Normal 150-450 [facility] Comment on above: Performed By: #### 1 9123-9, CMP, CBCA, 2157-04 ####[facility] ([id number])[address] [address] RBC COUNT 2.83 X10E12/L Low 3.80-5.20 [facility] Comment on above: Performed By: #### 1 9123-9, CMP, CBCA, 2157-04 ####[facility] ([id number])[address] [address] SEG NEUTROPHIL 55.7 % Normal [facility] Comment on above: Performed By: #### 1 9123-9, CMP, CBCA, 2157-04 ####[facility] ([id number])[address] [address] WBC (Bld) [#/Vol] 7.8 10*3/uL Normal 4.0-11.0 [facility] Comment on above: Performed By: #### 1 9123-9, CMP, CBCA, 2157-04 ####[facility] ([id number])[address] [address] CK [Catalytic activity/Vol]o n 02-20-2025 CPK 39 U/L Normal 24-170 [facility] Comment on above: Performed By: #### 1 9123-9, CMP, CBCA, 2157-04 ####[facility] ([id number])[address] [address] COMPREHENSIVE METABOLIC PANE Dickson 02-20-2025 Albumin [Mass/Vol] 3.2 g/dL Normal 3.2-5.3 [facility] Comment on above: Performed By: #### 1 9123-9, CMP, CBCA, 2157-04 ####[facility] ([id number])[address], [address], [place] [address] ALP [Catalytic activity/Vol] 106 U/L Normal 39-130 [facility] Comment on above: Performed By: #### 1 9123-9, CMP, CBCA, 2157-04 ####[facility] ([id number])[address], [address], [place] [address] ALT [Catalytic activity/Vol] 22 U/L Normal 0-31 [facility] Comment on above: Performed By: #### 1 9123-9, CMP, CBCA, 2157-04 ####[facility] ([id number])[address], [address], [place] [address] Anion gap [Moles/Vol] 9 mmol/L Normal 5-15 [facility] Comment on above: Performed By: #### 1 9123-9, CMP, CBCA, 2157-04 ####[facility] ([id number])[address], [address], [place] [address] AST [Catalytic activity/Vol] 24 U/L Normal 0-41 [facility] Comment on above: Performed By: #### 1 9123-9, CMP, CBCA, 2157-04 ####[facility] ([id number])[address], [address], [place] [address] Bilirubin [Mass/Vol] 0.3 mg/dL Normal 0.3-1.2 [facility] Comment on above: Performed By: #### 1 9123-9, CMP, CBCA, 2157-04 ####[facility] ([id number])[address], [address], [place] [address] Calcium [Mass/Vol] 9.0 mg/dL Normal 8.5-10.5 [facility] Comment on above: Performed By: #### 1 9123-9, CMP, CBCA, 2157-04 ####[facility] ([id number])[address] [place] [address] Chloride [Moles/Vol] 101 mmol/L Normal 98-109 [facility] Comment on above: Performed By: #### 1 9123-9, CMP, CBCA, 2157-04 ####[facility] ([id number])[address], [address] [place] [address] CO2 [Moles/Vol] 29 mmol/L Normal 22-32 [facility] Comment on above: Performed By: #### 1 9123-9, CMP, CBCA, 2157-04 ####[facility] ([id number])[address], [address], [place] [address] Creatinine [Mass/Vol] 1.45 mg/dL High 0.40-1.00 [facility] Comment on above: Result Comment: METH OD TRACEABLE TO IDMS STANDARD Performed By: #### 1 9123-9, CMP, CBCA, 2157-04 ####[facility] ([id number])[address] [address] GFR/1.73 sq M.predicted among non-blacks MDRD (S/P/Bld) [Vol rate/Area] 37 mL/min/{1.73_m2} Low >59 [facility] Comment on above: Result Comment: Reported eGFR is based on the CKD-EPI 1 equation that does not use a race coefficient. Performed By: #### 1 9123-9, CMP, CBCA, 2157-04 ####[facility] ([id number])[address] [address], [place] [address] Glucose [Mass/Vol] 110 mg/dL High 65-99 [facility] Comment on above: Performed By: #### 1 9123-9, CMP, CBCA, 2157-04 ####[facility] ([id number])[address], [place] [address] Potassium [Moles/Vol] 4.6 mmol/L Normal 3.5-5.0 [facility] Comment on above: Performed By: #### 1 9123-9, CMP, CBCA, 2157-04 ####[facility] ([id number])[address], [place] [address] Protein [Mass/Vol] 6.4 g/dL Normal 6.0-8.0 [facility] Comment on above: Performed By: #### 1 9123-9, CMP, CBCA, 2157-04 ####[facility] ([id number])[address], [address] [place] [address] Sodium [Moles/Vol] 139 mmol/L Normal 134-146 [facility] Comment on above: Performed By: #### 1 9123-9, CMP, CBCA, 2157-04 ####[facility] ([id number])[address], [address] [place] [address] Urea nitrogen [Mass/Vol] 14 mg/dL Normal 5-27 [facility] Comment on above: Performed By: #### 1 9123-9, CMP, CBCA, 2157-04 ####[facility] ([id number])[address], [address] [place] [address] Glucose Glucometer (dC) [M ass/Vol]on 02-20-2025 Glucose [Mass/Vol] 253 mg/dL High 65-99 [facility] Glucose [Mass/Vol] 145 mg/dL High 65-99 [facility] Glucose [Mass/Vol] 237 mg/dL High 65-99 [facility] Glucose [Mass/Vol] 143 mg/dL High 65-99 [facility] MAGNESIUMon 02-20-2025 Magnesium [Mass/Vol] 1.9 mg/dL Normal 1.8-2.6 [facility] Comment on above: Performed By: #### 1 9123-9, CMP, CBCA, 2157-6 ####[facility] ([id number])[address], [address] [place] [address] BLOOD CULTUREon 02-19-2025 Bacteria identified Aer cx Nom (Bld) SPECIMEN NOTES SUBOPTIMAL VOLUME OF BLOOD COLLECTED, RESULTS MAY BE AFFECTED. CULTURE RESULTS STAPHYLOCOCCUS AUREUS METHICILLIN RESISTANT FOR SUSCEPTIBILITY, SEE PREVIOUS REPORT. Normal [facility] Comment on above: Performed By: #### 1 7928-3 ####[facility] ([id number])[address], [address] [place] [address] Bacteria identified Aer cx Nom (Bld) SPECIMEN NOTES SUBOPTIMAL VOLUME OF BLOOD COLLECTED, RESULTS MAY BE AFFECTED. CULTURE RESULTS STAPHYLOCOCCUS AUREUS METHICILLIN RESISTANT FOR SUSCEPTIBILITY, SEE PREVIOUS REPORT. Normal [facility] Comment on above: Performed By: #### 1 7928-3 ####[facility] ([id number])[address], [address] [place] [address] CBC AND AUTO DIFFon 02-20-20 25 Eosinophils (Bld) [#/Vol] 0.1 10*3/uL Normal 0.0-0.4 [facility] Comment on above: Performed By: #### 2 0578-1 #### [facility] ([id number]) [address] [address] Eosinophils/100 WBC (Bld) 1.0 % Normal [facility] Comment on above: Performed By: #### 2 0578-1 #### [facility] ([id number]) [address] [address] Erythrocyte distribution width (RBC) [Ratio] 17.1 % High 11.5-15.0 [facility] Comment on above: Performed By: #### 2 0578-1 #### [facility] ([id number]) [address], [address] [address] Hematocrit (Bld) [Volume fraction] 24.1 % Low 35-47 [facility] Comment on above: Performed By: #### 2 0578-1 #### [facility] ([id number]) [address], [address] [place] [address] Hemoglobin (Bld) [Mass/Vol] 7.9 g/dL Low 11.7-15.5 [facility] Comment on above: Performed By: #### 2 0578-1 #### [facility] ([id number]) [address], [address] [place] [address] Lymphocytes (Bld) [#/Vol] 1.8 10*3/uL Normal 1.0-3.5 [facility] Comment on above: Performed By: #### 2 0578-1 #### [facility] ([id number]) [address], [address] [place] [address] Lymphocytes/100 WBC (Bld) 21.0 % Normal [facility] Comment on above: Performed By: #### 2 0578-1 #### [facility] ([id number]) [address], [address] [place] [address] MCH (RBC) [Entitic mass] 27.3 pg Normal 27-34 [facility] Comment on above: Performed By: #### 2 0578-1 #### [facility] ([id number]) [address], [address] [place] [address] MCHC (RBC) [Mass/Vol] 32.7 g/dL Normal 32-36 [facility] Comment on above: Performed By: #### 2 0578-1 #### [facility] ([id number]) [address], [address] [place] [address] MCV (RBC) [Entitic vol] 84 fL Normal 80-100 [facility] Comment on above: Performed By: #### 2 0578-1 #### [facility] ([id number]) [address], [address] [place] [address] Monocytes (Bld) [#/Vol] 0.6 10*3/uL Normal 0-0.9 [facility] Comment on above: Performed By: #### 2 0578-1 #### [facility] ([id number]) [address], [address] [place] [address] Monocytes/100 WBC (Bld) 7.0 % Normal [facility] Comment on above: Performed By: #### 2 0578-1 #### [facility] ([id number]) [address], [address] [place] [address] MYELOCYTE 2.0 % Normal [facility] Comment on above: Performed By: #### 2 0578-1 #### [facility] ([id number]) [address], [address] [place] [address] Neutrophils (Bld) [#/Vol] 6.1 10*3/uL Normal 1.5-6.6 [facility] Comment on above: Performed By: #### 2 0578-1 #### [facility] ([id number]) [address], [address] [place] [address] OVALOCYTE 1+ Abnormal NONE [facility] Comment on above: Performed By: #### 2 0578-1 #### [facility] ([id number]) [address], [address] [place] [address] Platelet mean volume (Bld) [Entitic vol] 8.3 fL Normal 7-12 [facility] Comment on above: Performed By: #### 2 0578-1 #### [facility] ([id number]) [address], [address] [place] [address] Platelets (Bld) [#/Vol] 288 10*3/uL Normal 150-450 [facility] Comment on above: Performed By: #### 2 0578-1 #### [facility] ([id number]) [address], [address] [place] [address] POLYCHROMASIA 1+ Abnormal NONE [facility] Comment on above: Performed By: #### 2 0578-1 #### [facility] ([id number]) [address], [address] [place] [address] RBC COUNT 2.89 X10E12/L Low 3.80-5.20 [facility] Comment on above: Performed By: #### 2 0578-1 #### [facility] ([id number]) [address], [address] [place] [address] SEG NEUTROPHIL 69.0 % Normal [facility] Comment on above: Performed By: #### 2 0578-1 #### [facility] ([id number]) [address], [address] [place] [address] WBC (Bld) [#/Vol] 8.8 10*3/uL Normal 4.0-11.0 [facility] Comment on above: Performed By: #### 2 0578-1 #### [facility] ([id number]) [address], [address] [place] [address] COMPREHENSIVE METABOLIC PANE Dickson 02-19-2025 Albumin [Mass/Vol] 3.2 g/dL Normal 3.2-5.3 [facility] Comment on above: Performed By: #### 2 0578-1 #### [facility] ([id number]) [address], [address] [place] [address] ALP [Catalytic activity/Vol] 112 U/L Normal 39-130 [facility] Comment on above: Performed By: #### 2 0578-1 #### [facility] ([id number]) [address], [address] [place] [address] ALT [Catalytic activity/Vol] 23 U/L Normal 0-31 [facility] Comment on above: Performed By: #### 2 0578-1 #### [facility] ([id number]) [address], [address] [place] [address] Anion gap [Moles/Vol] 8 mmol/L Normal 5-15 [facility] Comment on above: Performed By: #### 2 0578-1 #### [facility] ([id number]) [address], [address] [place] [address] AST [Catalytic activity/Vol] 20 U/L Normal 0-41 [facility] Comment on above: Performed By: #### 2 0578-1 #### [facility] ([id number]) [address], [address] [place] [address] Bilirubin [Mass/Vol] 0.3 mg/dL Normal 0.3-1.2 [facility] Comment on above: Performed By: #### 2 0578-1 #### [facility] ([id number]) [address], [address] [place] [address] Calcium [Mass/Vol] 9.3 mg/dL Normal 8.5-10.5 [facility] Comment on above: Performed By: #### 2 0578-1 #### [facility] ([id number]) [address], [address] [place] [address] Chloride [Moles/Vol] 103 mmol/L Normal 98-109 [facility] Comment on above: Performed By: #### 2 0578-1 #### [facility] ([id number]) [address], [address] [place] [address] CO2 [Moles/Vol] 30 mmol/L Normal 22-32 [facility] Comment on above: Performed By: #### 2 0578-1 #### [facility] ([id number]) [address], [address] [place] [address] Creatinine [Mass/Vol] 1.30 mg/dL High 0.40-1.00 [facility] Comment on above: Result Comment: METH OD TRACEABLE TO IDMS STANDARD Performed By: #### 2 0578-1 #### [facility] ([id number]) [address], [address] [place] [address] GFR/1.73 sq M.predicted among non-blacks MDRD (S/P/Bld) [Vol rate/Area] 42 mL/min/{1.73_m2} Low >59 [facility] Comment on above: Result Comment: Reported eGFR is based on the CKD-EPI 2020 equation that does not use a race coefficient. Performed By: #### 2 0578-1 #### [facility] ([id number]) [address], [address] [place] [address] Glucose [Mass/Vol] 95 mg/dL Normal 65-99 [facility] Comment on above: Performed By: #### 2 0578-1 #### [facility] ([id number]) [address] [address] [place] [address] Potassium [Moles/Vol] 4.3 mmol/L Normal 3.5-5.0 [facility] Comment on above: Performed By: #### 2 0578-1 #### [facility] ([id number]) [address], [address] [place] [address] Protein [Mass/Vol] 6.2 g/dL Normal 6.0-8.0 [facility] Comment on above: Performed By: #### 2 0578-1 #### [facility] ([id number]) [address] [address] [place] [address] Sodium [Moles/Vol] 141 mmol/L Normal 134-146 [facility] Comment on above: Performed By: #### 2 0578-1 #### [facility] ([id number]) [address] [address] [place] [address] Urea nitrogen [Mass/Vol] 13 mg/dL Normal 5-27 [facility] Comment on above: Performed By: #### 2 0578-1 #### [facility] ([id number]) [address], [address] [place] [address] Glucose Glucometer (BldC) [M ass/Vol]on 02-19-2025 Glucose [Mass/Vol] 202 mg/dL High 65-99 [facility] Glucose [Mass/Vol] 171 mg/dL High 65-99 [facility] Glucose [Mass/Vol] 200 mg/dL High 65-99 [facility] Glucose [Mass/Vol] 100 mg/dL High 65-99 [facility] MAGNESIUMon 02-19-2025 Magnesium [Mass/Vol] 2.1 mg/dL Normal 1.8-2.6 [facility] Comment on above: Performed By: #### 2 0578-1 #### [facility] ([id number]) [address], [address] [place] [address] Vancomycin peak [Mass/Vol]on 02-19-2025 VANCOMYCIN PEAK 36.7 ug/mL Normal 30.00-40.0 0 [facility] Comment on above: Performed By: #### 4 090-7 ####[facility] ([id number])[address], [address], [place] [address] Vancomycin trough [Mass/Vol] on 02-19-2025 VANCOMYCIN TROUGH 22.2 ug/mL High 5.0-20.0 [facility] Comment on above: Performed By: #### 2 0578-1 #### [facility] ([id number]) [address], [address] [place] [address] CBC AND AUTO DIFFon 02-19-20 25 ACANTHOCYTE 1+ Abnormal NONE [facility] Comment on above: Performed By: #### C MP, CBCA, 16486-2 #### [facility] ([id number]) [address], [address] [place] [address] Eosinophils (Bld) [#/Vol] 0.2 10*3/uL Normal 0.0-0.4 [facility] Comment on above: Performed By: #### C FAITH, CBCA, #### [facility] ([id number]) [address], [address] [place] [address] Eosinophils/100 WBC (Bld) 3.0 % Normal [facility] Comment on above: Performed By: #### C FAITH, CBCA, #### [facility] ([id number]) [address], [facility] [address] [place] [address] Erythrocyte distribution width (RBC) [Ratio] 16.7 % High 11.5-15.0 [facility] Comment on above: Performed By: #### C FAITH, CBCA, #### [facility] ([id number]) [address], [address] [place] [address] Hematocrit (Bld) [Volume fraction] 22.6 % Low 35-47 [facility] Comment on above: Performed By: #### C FAITH, CBCA, #### [facility] ([id number]) [address], [address] [place] [address] Hemoglobin (Bld) [Mass/Vol] 7.4 g/dL Low 11.7-15.5 [facility] Comment on above: Performed By: #### C FAITH, CBCA, #### [facility] ([id number]) [address], [facility] [address] [place] [address] Lymphocytes (Bld) [#/Vol] 1.8 10*3/uL Normal 1.0-3.5 [facility] Comment on above: Performed By: #### C FAITH, CBCA, #### [facility] ([id number]) [address], [address] [place] [address] Lymphocytes/100 WBC (Bld) 24.2 % Normal [facility] Comment on above: Performed By: #### C FAITH, CBCA, #### [facility] ([id number]) [address], [address] [place] [address] MCH (RBC) [Entitic mass] 27.6 pg Normal 27-34 [facility] Comment on above: Performed By: #### C FAITH, CBCA, #### [facility] ([id number]) [address], [address] [place] [address] MCHC (RBC) [Mass/Vol] 33.0 g/dL Normal 32-36 [facility] Comment on above: Performed By: #### C FAITH, CBCA, #### [facility] ([id number]) [address], [address] [place] [address] MCV (RBC) [Entitic vol] 84 fL Normal 80-100 [facility] Comment on above: Performed By: #### C FAITH, CBCA, #### [facility] ([id number]) [address], [address] [place] [address] Monocytes (Bld) [#/Vol] 0.9 10*3/uL Normal 0-0.9 [facility] Comment on above: Performed By: #### C FAITH, CBCA, #### [facility] ([id number]) [address], [address] [place] [address] Monocytes/100 WBC (Bld) 12.1 % Normal [facility] Comment on above: Performed By: #### C FAITH, CBCA, #### [facility] ([id number]) [address], [address] [place] [address] MYELOCYTE 1.0 % Normal [facility] Comment on above: Performed By: #### C FAITH, CBCA, #### [facility] ([id number]) [address], [address] [place] [address] Neutrophils (Bld) [#/Vol] 4.5 10*3/uL Normal 1.5-6.6 [facility] Comment on above: Performed By: #### C FAITH, CBCA, #### [facility] ([id number]) [address], [facility] [address] [place] [address] NUCLEATED RBC 1.0 /100 WBC Normal 0.0-1.0 [facility] Comment on above: Performed By: #### C FAITH, CBCA, #### [facility] ([id number]) [address], [facility] [address] [place] [address] Platelet mean volume (Bld) [Entitic vol] 8.5 fL Normal 7-12 [facility] Comment on above: Performed By: #### C FAITH, CBCA, #### [facility] ([id number]) [address], [address] [place] [address] Platelets (Bld) [#/Vol] 262 10*3/uL Normal 150-450 [facility] Comment on above: Performed By: #### C FAITH, CBCA, #### [facility] ([id number]) [address], [address] [place] [address] RBC COUNT 2.70 X10E12/L Low 3.80-5.20 [facility] Comment on above: Performed By: #### C FAITH, CBCA, #### [facility] ([id number]) [address] [address] [place] [address] SEG NEUTROPHIL 59.7 % Normal [facility] Comment on above: Performed By: #### C CARMEN CUEVAS, #### [facility] ([id number]) [address], [address] [place] [address] WBC (Bld) [#/Vol] 7.5 10*3/uL Normal 4.0-11.0 [facility] Comment on above: Performed By: #### C FAITH CBCDanielle, #### [facility] ([id number]) [address], [address] [place] [address] COMPREHENSIVE METABOLIC PANE Dickson 02-18-2025 Albumin [Mass/Vol] 3.1 g/dL Low 3.2-5.3 [facility] Comment on above: Performed By: #### C CARMEN CUEVAS, #### [facility] ([id number]) [address], [address] [place] [address] ALP [Catalytic activity/Vol] 93 U/L Normal 39-130 [facility] Comment on above: Performed By: #### C CARMEN CUEVAS, #### [facility] ([id number]) [address], [address] [place] [address] ALT [Catalytic activity/Vol] 22 U/L Normal 0-31 [facility] Comment on above: Performed By: #### C CARMEN CUEVAS, #### [facility] ([id number]) [address], [address] [place] [address] Anion gap [Moles/Vol] 7 mmol/L Normal 5-15 [facility] Comment on above: Performed By: #### C CARMEN CUEVAS, #### [facility] ([id number]) [address], [address] [place] [address] AST [Catalytic activity/Vol] 18 U/L Normal 0-41 [facility] Comment on above: Performed By: #### C CARMEN CUEVAS, #### [facility] ([id number]) [address], [address] [place] [address] Bilirubin [Mass/Vol] 0.3 mg/dL Normal 0.3-1.2 [facility] Comment on above: Performed By: #### C CARMEN CUEVAS, #### [facility] ([id number]) [address], [address] [place] [address] Calcium [Mass/Vol] 9.0 mg/dL Normal 8.5-10.5 [facility] Comment on above: Performed By: #### C CARMEN CUEVAS, #### [facility] ([id number]) [address], [address] [place] [address] Chloride [Moles/Vol] 105 mmol/L Normal 98-109 [facility] Comment on above: Performed By: #### C CARMEN CUEVAS, #### [facility] ([id number]) [address], [address] [place] [address] CO2 [Moles/Vol] 29 mmol/L Normal 22-32 [facility] Comment on above: Performed By: #### C CARMEN CUEVAS, #### [facility] ([id number]) [address], [address] [place] [address] Creatinine [Mass/Vol] 1.30 mg/dL High 0.40-1.00 [facility] Comment on above: Result Comment: METH OD TRACEABLE TO IDMS STANDARD Performed By: #### C CARMEN CUEVAS, #### [facility] ([id number]) [address], [address] [place] [address] GFR/1.73 sq M.predicted among non-blacks MDRD (S/P/Bld) [Vol rate/Area] 42 mL/min/{1.73_m2} Low >59 [facility] Comment on above: Result Comment: Reported eGFR is based on the CKD-EPI 2020 equation that does not use a race coefficient. Performed By: #### C CARMEN CUEVAS, #### [facility] ([id number]) [address], [address] [place] [address] Glucose [Mass/Vol] 100 mg/dL High 65-99 [facility] Comment on above: Performed By: #### C CARMEN CUEVAS, #### [facility] ([id number]) [address], [address] [place] [address] Potassium [Moles/Vol] 4.1 mmol/L Normal 3.5-5.0 [facility] Comment on above: Performed By: #### CARMEN Maravilla MP, #### [facility] ([id number]) [address], [address] [place] [address] Protein [Mass/Vol] 6.0 g/dL Normal 6.0-8.0 [facility] Comment on above: Performed By: #### CARMEN Maravilla MP, #### [facility] ([id number]) [address], [address] [place] [address] Sodium [Moles/Vol] 141 mmol/L Normal 134-146 [facility] Comment on above: Performed By: #### CARMEN Maravilla MP, #### [facility] ([id number]) [address], [address] [place] [address] Urea nitrogen [Mass/Vol] 16 mg/dL Normal 5-27 [facility] Comment on above: Performed By: #### CARMEN Maravilla MP, #### [facility] ([id number]) [address], [address] [place] [address] Glucose Glucometer (BldC) [M ass/Vol]on 02-18-2025 Glucose [Mass/Vol] 143 mg/dL High 65-99 [facility] Glucose [Mass/Vol] 222 mg/dL High 65-99 [facility] Glucose [Mass/Vol] 247 mg/dL High 65-99 [facility] Glucose [Mass/Vol] 110 mg/dL High 65-99 [facility] MAGNESIUMon 02-18-2025 Magnesium [Mass/Vol] 2.2 mg/dL Normal 1.8-2.6 [facility] Comment on above: Performed By: #### 2 0578-1 #### [facility] ([id number]) [address], [address] [place] [address] Magnesium [Mass/Vol] 1.9 mg/dL Normal 1.8-2.6 [facility] Comment on above: Performed By: #### C FAITH, CBCA, 88539-5 #### [facility] ([id number]) [address], [address] [place] [address] BLOOD CULTUREon 02-17-2025 Bacteria identified Aer cx Nom (Bld) SPECIMEN NOTES ONLY AEROBIC BOTTLE RECEIVED, SUBOPTIMAL VOLUME OF BLOOD COLLECTED, RESULTS MAY BE AFFECTED SUBOPTIMAL VOLUME OF BLOOD COLLECTED, RESULTS MAY BE AFFECTED. CULTURE RESULTS NO GROWTH 5 DAYS Normal [facility] Comment on above: Performed By: #### C FAITH, CBCA, 00586-2 #### [facility] ([id number]) [address], [address] [place] [address] Bacteria identified Aer cx Nom (Bld) SPECIMEN NOTES SUBOPTIMAL VOLUME OF BLOOD COLLECTED, RESULTS MAY BE AFFECTED. CULTURE RESULTS STAPHYLOCOCCUS AUREUS METHICILLIN RESISTANT Staphylcoccus aureus detected by PCR. mecA/C and MREJ gene detected by PCR (MRSA). [ S = SUSCEPTIBLE R = RESISTANT I = INTERMEDIATE S-DO = Susceptible-dose dependent NS = Non-suscceptible NO = No Interpretation ] Organism: STAPHYLOCOCCUS AUREUS Antibiotic Interpretation CLARK Status CEFAZOLIN R F CLINDAMYCIN R >=4 F OXACILLIN R >=4 F TRIMETH/SULFAMETHOXAZOLE S <=.5/9.5 F VANCOMYCIN S 1 F DAPTOMYCIN S 0.25 F DOXYCYCLINE R >=16 F Resistant [facility] Comment on above: Performed By: #### C FAITH, CBCA, #### [facility] ([id number]) [address], [address] [place] [address] CBC AND AUTO DIFFon 02-18-20 25 ABSOLUTE BASOPHIL 0.0 X10E9/L Normal 0.0-0.2 [facility] Comment on above: Performed By: #### C FAITH, CBCA, #### [facility] ([id number]) [address], [address] [place] [address] ABSOLUTE NEUTROPHIL 4.7 X10E9/L Normal 1.5-6.6 [facility] Comment on above: Performed By: #### C FAITH, CBCA, #### [facility] ([id number]) [address], [address] [place] [address] Basophils/100 WBC (Bld) 0.5 % Normal [facility] Comment on above: Performed By: #### C FAITH, CBCA, #### [facility] ([id number]) [address] [place] [address] Eosinophils (Bld) [#/Vol] 0.3 10*3/uL Normal 0.0-0.4 [facility] Comment on above: Performed By: #### C FAITH, CBCA, #### [facility] ([id number]) [address], [address] [place] [address] Eosinophils/100 WBC (Bld) 4.4 % Normal [facility] Comment on above: Performed By: #### C FAITH, CBCA, #### [facility] ([id number]) [address], [address] [place] [address] Erythrocyte distribution width (RBC) [Ratio] 16.8 % High 11.5-15.0 [facility] Comment on above: Performed By: #### C FAITH, CBCA, #### [facility] ([id number]) [address] [place] [address] Hematocrit (Bld) [Volume fraction] 23.6 % Low 35-47 [facility] Comment on above: Performed By: #### C FAITH, CBCA, #### [facility] ([id number]) [address], [address] [place] [address] Hemoglobin (Bld) [Mass/Vol] 7.8 g/dL Low 11.7-15.5 [facility] Comment on above: Performed By: #### C FAITH, CBCA, #### [facility] ([id number]) [address], [address] [place] [address] Lymphocytes (Bld) [#/Vol] 1.5 10*3/uL Normal 1.0-3.5 [facility] Comment on above: Performed By: #### C FAITH, CBCA, #### [facility] ([id number]) [address], [address] [place] [address] Lymphocytes/100 WBC (Bld) 19.4 % Normal [facility] Comment on above: Performed By: #### C FAITH, CBCA, #### [facility] ([id number]) [address], [address] [place] [address] MCH (RBC) [Entitic mass] 27.8 pg Normal 27-34 [facility] Comment on above: Performed By: #### C FAITH, CBCA, #### [facility] ([id number]) [address], [address] [place] [address] MCHC (RBC) [Mass/Vol] 32.9 g/dL Normal 32-36 [facility] Comment on above: Performed By: #### C FAITH, CBCA, #### [facility] ([id number]) [address], [address] [place] [address] MCV (RBC) [Entitic vol] 84 fL Normal 80-100 [facility] Comment on above: Performed By: #### C FAITH, CBCA, #### [facility] ([id number]) [address], [address] [place] [address] Monocytes (Bld) [#/Vol] 1.1 10*3/uL High 0-0.9 [facility] Comment on above: Performed By: #### C FAITH, CBCA, #### [facility] ([id number]) [address] [place] [address] Monocytes/100 WBC (Bld) 14.7 % Normal [facility] Comment on above: Performed By: #### C FAITH, CBCA, #### [facility] ([id number]) [address] [place] [address] Neutrophils/100 WBC (Bld) 61.0 % Normal [facility] Comment on above: Performed By: #### C FAITH, CBCA, #### [facility] ([id number]) [address] [place] [address] Platelet mean volume (Bld) [Entitic vol] 8.4 fL Normal 7-12 [facility] Comment on above: Performed By: #### C MP, CBCA, #### [facility] ([id number]) [address] [place] [address] Platelets (Bld) [#/Vol] 243 10*3/uL Normal 150-450 [facility] Comment on above: Performed By: #### C FAITH, CBCA, #### [facility] ([id number]) [address] [place] [address] RBC COUNT 2.80 X10E12/L Low 3.80-5.20 [facility] Comment on above: Performed By: #### C FAITH, CBCA, #### [facility] ([id number]) [address], [address] [place] [address] WBC (Bld) [#/Vol] 7.8 10*3/uL Normal 4.0-11.0 [facility] Comment on above: Performed By: #### C FAITH, CBCA, #### [facility] ([id number]) [address], [address] [place] [address] COMPREHENSIVE METABOLIC PANE Dickson 02-17-2025 Albumin [Mass/Vol] 3.2 g/dL Normal 3.2-5.3 [facility] Comment on above: Performed By: #### C FAITH, CBCA, #### [facility] ([id number]) [address], [address] [place] [address] ALP [Catalytic activity/Vol] 98 U/L Normal 39-130 [facility] Comment on above: Performed By: #### C FAITH, CBCA, #### [facility] ([id number]) [address], [address] [place] [address] ALT [Catalytic activity/Vol] 33 U/L High 0-31 [facility] Comment on above: Performed By: #### C FAITH, CBCA, #### [facility] ([id number]) [address], [address] [place] [address] Anion gap [Moles/Vol] 7 mmol/L Normal 5-15 [facility] Comment on above: Performed By: #### C FAITH, CBCA, #### [facility] ([id number]) [address], [address] [place] [address] AST [Catalytic activity/Vol] 32 U/L Normal 0-41 [facility] Comment on above: Performed By: #### C CARMEN CUEVAS, #### [facility] ([id number]) [address], [address] [place] [address] Bilirubin [Mass/Vol] 0.2 mg/dL Low 0.3-1.2 [facility] Comment on above: Performed By: #### C FAITH CBCDanielle, #### [facility] ([id number]) [address], [address] [place] [address] Calcium [Mass/Vol] 9.1 mg/dL Normal 8.5-10.5 [facility] Comment on above: Performed By: #### C FAITH CBCDanielle, #### [facility] ([id number]) [address], [address] [place] [address] Chloride [Moles/Vol] 104 mmol/L Normal 98-109 [facility] Comment on above: Performed By: #### C FAITH CBCDanielle, #### [facility] ([id number]) [address], [address] [place] [address] CO2 [Moles/Vol] 27 mmol/L Normal 22-32 [facility] Comment on above: Performed By: #### C FAITH CBCDanielle, #### [facility] ([id number]) [address], [address] [place] [address] Creatinine [Mass/Vol] 1.16 mg/dL High 0.40-1.00 [facility] Comment on above: Result Comment: METH OD TRACEABLE TO IDMS STANDARD Performed By: #### C FAITH CBCDanielle, #### [facility] ([id number]) [address], [address] [place] [address] GFR/1.73 sq M.predicted among non-blacks MDRD (S/P/Bld) [Vol rate/Area] 48 mL/min/{1.73_m2} Low >59 [facility] Comment on above: Result Comment: Reported eGFR is based on the CKD-EPI 2020 equation that does not use a race coefficient. Performed By: #### C CARMEN CUEVAS, #### [facility] ([id number]) [address], [place] [facility] [address] [place] [address] Glucose [Mass/Vol] 159 mg/dL High 65-99 [facility] Comment on above: Performed By: #### CARMEN Maravilla MP, #### [facility] ([id number]) [address] [address] Potassium [Moles/Vol] 4.3 mmol/L Normal 3.5-5.0 [facility] Comment on above: Performed By: #### CARMEN Maravilla MP, #### [facility] ([id number]) [address] [address] Protein [Mass/Vol] 6.2 g/dL Normal 6.0-8.0 [facility] Comment on above: Performed By: #### CARMEN Maravilla MP, #### [facility] ([id number]) [address] [address] Sodium [Moles/Vol] 138 mmol/L Normal 134-146 [facility] Comment on above: Performed By: #### CARMEN Maravilla MP, #### [facility] ([id number]) [address] [address] Urea nitrogen [Mass/Vol] 23 mg/dL Normal 5-27 [facility] Comment on above: Performed By: #### CARMEN Maravilla MP, #### [facility] ([id number]) [address], [address] [place] [address] Glucose Glucometer (BldC) [M ass/Vol]on 02-17-2025 Glucose [Mass/Vol] 237 mg/dL High 65-99 [facility] Glucose [Mass/Vol] 162 mg/dL High 65-99 [facility] Glucose [Mass/Vol] 174 mg/dL High 65-99 [facility] Glucose [Mass/Vol] 149 mg/dL High 65-99 [facility] MAGNESIUMon 02-17-2025 Magnesium [Mass/Vol] 2.2 mg/dL Normal 1.8-2.6 [facility] Comment on above: Performed By: #### C CARMEN CUEVAS, 42408-8 #### [facility] ([id number]) [address], [address] [place] [address] Magnesium [Mass/Vol] 1.7 mg/dL Low 1.8-2.6 [facility] Comment on above: Performed By: #### C FAITH CBCA, 47166-5 #### [facility] ([id number]) [address], [address] [place] [address] Vancomycin [Mass/Vol]on VANCOMYCIN 17.4 ug/mL Normal 5.0-40.0 [facility] Comment on above: Result Comment: Peak 30-40 ug/mL Trough 5-20 ug/ml Performed By: #### C FAITH CBCA, 66645-1 #### [facility] ([id number]) [address], [address] [place] [address] CBC AND AUTO DIFFon 02-17-20 25 ABSOLUTE BASOPHIL 0.0 X10E9/L Normal 0.0-0.2 [facility] Comment on above: Performed By: #### C FAITH, CBCA, #### [facility] ([id number]) [address], [address] [place] [address] ABSOLUTE NEUTROPHIL 3.3 X10E9/L Normal 1.5-6.6 [facility] Comment on above: Performed By: #### C MP, CBCA, #### [facility] ([id number]) [address], [address] [place] [address] Basophils/100 WBC (Bld) 0.7 % Normal [facility] Comment on above: Performed By: #### C FAITH, CBCA, #### [facility] ([id number]) [address], [address] [place] [address] Eosinophils (Bld) [#/Vol] 0.2 10*3/uL Normal 0.0-0.4 [facility] Comment on above: Performed By: #### C FAITH, CBCA, #### [facility] ([id number]) [address], [address] [place] [address] Eosinophils/100 WBC (Bld) 4.0 % Normal [facility] Comment on above: Performed By: #### C FAITH, CBCA, #### [facility] ([id number]) [address], [address] [place] [address] Erythrocyte distribution width (RBC) [Ratio] 16.9 % High 11.5-15.0 [facility] Comment on above: Performed By: #### C FAITH, CBCA, #### [facility] ([id number]) [address], [address] [place] [address] Hematocrit (Bld) [Volume fraction] 21.0 % Low 35-47 [facility] Comment on above: Performed By: #### C MP, CBCA, #### [facility] ([id number]) [address], [address] [place] [address] Hemoglobin (Bld) [Mass/Vol] 7.0 g/dL Low 11.7-15.5 [facility] Comment on above: Performed By: #### C FAITH, CBCA, #### [facility] ([id number]) [address], [address] [place] [address] Lymphocytes (Bld) [#/Vol] 1.6 10*3/uL Normal 1.0-3.5 [facility] Comment on above: Performed By: #### C FAITH, CBCA, #### [facility] ([id number]) [address], [address] [place] [address] Lymphocytes/100 WBC (Bld) 27.0 % Normal [facility] Comment on above: Performed By: #### C FAITH, CBCA, #### [facility] ([id number]) [address], [address] [place] [address] MCH (RBC) [Entitic mass] 27.8 pg Normal 27-34 [facility] Comment on above: Performed By: #### C FAITH, CBCA, #### [facility] ([id number]) [address], [address] [place] [address] MCHC (RBC) [Mass/Vol] 33.2 g/dL Normal 32-36 [facility] Comment on above: Performed By: #### C FAITH, CBCA, #### [facility] ([id number]) [address], [facility] [address] [place] [address] MCV (RBC) [Entitic vol] 84 fL Normal 80-100 [facility] Comment on above: Performed By: #### C FAITH, CBCA, #### [facility] ([id number]) [address], [address] [place] [address] Monocytes (Bld) [#/Vol] 0.8 10*3/uL Normal 0-0.9 [facility] Comment on above: Performed By: #### C MP, CBCA, #### [facility] ([id number]) [address], [address] [place] [address] Monocytes/100 WBC (Bld) 13.9 % Normal [facility] Comment on above: Performed By: #### C MP, CBCA, #### [facility] ([id number]) [address], [address] [place] [address] Neutrophils/100 WBC (Bld) 54.4 % Normal [facility] Comment on above: Performed By: #### C MP, CBCA, #### [facility] ([id number]) [address], [address] [place] [address] Platelet mean volume (Bld) [Entitic vol] 8.1 fL Normal 7-12 [facility] Comment on above: Performed By: #### C MP, CBCA, #### [facility] ([id number]) [address], [address] [place] [address] Platelets (Bld) [#/Vol] 189 10*3/uL Normal 150-450 [facility] Comment on above: Performed By: #### C MP, CBCA, #### [facility] ([id number]) [address], [address] [place] [address] RBC COUNT 2.50 X10E12/L Low 3.80-5.20 [facility] Comment on above: Performed By: #### C MP, CBCA, #### [facility] ([id number]) [address], [address] [place] [address] WBC (Bld) [#/Vol] 6.0 10*3/uL Normal 4.0-11.0 [facility] Comment on above: Performed By: #### C INO CUEVASA, #### [facility] ([id number]) [address], [address] [place] [address] COMPREHENSIVE METABOLIC PANE Dickson 02-16-2025 Albumin [Mass/Vol] 2.8 g/dL Low 3.2-5.3 [facility] Comment on above: Performed By: #### C FAITH CBCA, #### [facility] ([id number]) [address], [address] [place] [address] ALP [Catalytic activity/Vol] 90 U/L Normal 39-130 [facility] Comment on above: Performed By: #### C FAITH CBCA, #### [facility] ([id number]) [address], [address] [place] [address] ALT [Catalytic activity/Vol] 21 U/L Normal 0-31 [facility] Comment on above: Performed By: #### C FAITH CBCA, #### [facility] ([id number]) [address], [address] [place] [address] Anion gap [Moles/Vol] 5 mmol/L Normal 5-15 [facility] Comment on above: Performed By: #### C FAITH CBCA, #### [facility] ([id number]) [address], [address] [place] [address] AST [Catalytic activity/Vol] 24 U/L Normal 0-41 [facility] Comment on above: Performed By: #### C FAITH CBCA, #### [facility] ([id number]) [address], [address] [place] [address] Bilirubin [Mass/Vol] 0.3 mg/dL Normal 0.3-1.2 [facility] Comment on above: Performed By: #### C CARMEN CUEVAS, #### [facility] ([id number]) [address], [address] [place] [address] Calcium [Mass/Vol] 8.4 mg/dL Low 8.5-10.5 [facility] Comment on above: Performed By: #### C CARMEN CUEVAS, #### [facility] ([id number]) [address], [address] [place] [address] Chloride [Moles/Vol] 107 mmol/L Normal 98-109 [facility] Comment on above: Performed By: #### C CARMEN CUEVAS, #### [facility] ([id number]) [address], [address] [place] [address] CO2 [Moles/Vol] 28 mmol/L Normal 22-32 [facility] Comment on above: Performed By: #### CARMEN Maravilla MP, #### [facility] ([id number]) [address], [address] [place] [address] Creatinine [Mass/Vol] 1.23 mg/dL High 0.40-1.00 [facility] Comment on above: Result Comment: METH OD TRACEABLE TO IDMS STANDARD Performed By: #### CARMEN Maravilla MP, #### [facility] ([id number]) [address], [address] [place] [address] GFR/1.73 sq M.predicted among non-blacks MDRD (S/P/Bld) [Vol rate/Area] 45 mL/min/{1.73_m2} Low >59 [facility] Comment on above: Result Comment: Reported eGFR is based on the CKD-EPI 2020 equation that does not use a race coefficient. Performed By: #### C CARMEN CUEVAS, #### [facility] ([id number]) [address], [address] [place] [address] Glucose [Mass/Vol] 129 mg/dL High 65-99 [facility] Comment on above: Performed By: #### [place], [address]-3 #### [facility] ([id number]) [address], [address] [place] [address] Potassium [Moles/Vol] 4.4 mmol/L Normal 3.5-5.0 [facility] Comment on above: Performed By: #### [place], [address]-5 #### [facility] ([id number]) [address], [address] [place] [address] Protein [Mass/Vol] 5.6 g/dL Low 6.0-8.0 [facility] Comment on above: Performed By: #### CARMEN Maravilla MP, #### [facility] ([id number]) [address], [address] [place] [address] Sodium [Moles/Vol] 140 mmol/L Normal 134-146 [facility] Comment on above: Performed By: #### [place], [address]-7 #### [facility] ([id number]) [address], [address] [place] [address] Urea nitrogen [Mass/Vol] 23 mg/dL Normal 5-27 [facility] Comment on above: Performed By: #### CARMEN Maravilla MP, #### [facility] ([id number]) [address], [address] [place] [address] Glucose Glucometer (BldC) [M ass/Vol]on 02-16-2025 Glucose [Mass/Vol] 291 mg/dL High 65-99 [facility] Glucose [Mass/Vol] 238 mg/dL High 65-99 [facility] Glucose [Mass/Vol] 146 mg/dL High 65-99 [facility] MAGNESIUMon 02-16-2025 Magnesium [Mass/Vol] 1.8 mg/dL Normal 1.8-2.6 [facility] Comment on above: Performed By: #### C MP, CBCA, 18029-3 #### [facility] ([id number]) [address], [address] [place] [address] Vancomycin [Mass/Vol]on VANCOMYCIN 13.8 ug/mL Normal 5.0-40.0 [facility] Comment on above: Result Comment: Peak 30-40 ug/mL Trough 5-20 ug/ml Performed By: #### 2 0578-1 #### [facility] ([id number]) [address], [address] [place] [address] XR SHUNT SERIESon 02-16-2025 XR SHUNT SERIES XR SHUNT SERIES EXAM: XR SHUNT SERIES CLINICAL INFORMATION: confusion. COMPARISON: Single view chest dated 02/14/2025, head CT dated 02/12/2025 FINDINGS: There is a right-sided [employer]IOR [employer]LYST shunt extending along the right side of the calvarium, head, neck, chest, and into the abdomen. The catheter is looped multiple times in the right side of the abdomen with the tip terminating in the left lower quadrant. The visualized portions of the shunt catheter are intact without evidence for discontinuity or significant kinking. There is chronic elevation of the right hemidiaphragm. There are no focal consolidations. There is no pulmonary edema or pleural effusions. Changes of aortic valve replacement are again noted. There is a nonobstructive bowel gas pattern. There are no dilated loops of bowel or evidence of pneumatosis or free air. IMPRESSION: 1. Right-sided SENIOR TAX ANALYST shunt, looped multiple times in the abdomen with the tip terminating in the left lower quadrant. The visualized shunt catheter is intact without evidence of discontinuity or significant kinking. 2. No acute cardiopulmonary disease. 3. Nonobstructive bowel gas pattern. Finalized by Laci Lima MD on 02/16/2025 9:28 PM Normal [facility] CBC AND AUTO DIFFon 02-16-20 ABSOLUTE BASOPHIL 0.0 X10E9/L Normal 0.0-0.2 [facility] Comment on above: Performed By: #### C MP, CBCA, #### [facility] ([id number]) [address], [address] [place] [address] ABSOLUTE NEUTROPHIL 6.2 X10E9/L Normal 1.5-6.6 [facility] Comment on above: Performed By: #### C MP, CBCA, #### [facility] ([id number]) [address], [address] [place] [address] Basophils/100 WBC (Bld) 0.5 % Normal [facility] Comment on above: Performed By: #### C MP, CBCA, #### [facility] ([id number]) [address], [address] [place] [address] Eosinophils (Bld) [#/Vol] 0.2 10*3/uL Normal 0.0-0.4 [facility] Comment on above: Performed By: #### C MP, CBCA, #### [facility] ([id number]) [address], [address] [place] [address] Eosinophils/100 WBC (Bld) 2.3 % Normal [facility] Comment on above: Performed By: #### C MP, CBCA, #### [facility] ([id number]) [address], [address] [place] [address] Erythrocyte distribution width (RBC) [Ratio] 16.8 % High 11.5-15.0 [facility] Comment on above: Performed By: #### C MP, CBCA, #### [facility] ([id number]) [address], [address] [place] [address] Hematocrit (Bld) [Volume fraction] 23.1 % Low 35-47 [facility] Comment on above: Performed By: #### C FAITH, CBCA, #### [facility] ([id number]) [address], [address] [place] [address] Hemoglobin (Bld) [Mass/Vol] 7.5 g/dL Low 11.7-15.5 [facility] Comment on above: Performed By: #### C FAITH, CBCA, #### [facility] ([id number]) [address], [address] [place] [address] Lymphocytes (Bld) [#/Vol] 1.1 10*3/uL Normal 1.0-3.5 [facility] Comment on above: Performed By: #### C FAITH, CBCA, #### [facility] ([id number]) [address], [address] [place] [address] Lymphocytes/100 WBC (Bld) 12.9 % Normal [facility] Comment on above: Performed By: #### C FAITH, CBCA, #### [facility] ([id number]) [address], [address] [place] [address] MCH (RBC) [Entitic mass] 27.6 pg Normal 27-34 [facility] Comment on above: Performed By: #### C FAITH, CBCA, #### [facility] ([id number]) [address], [address] [place] [address] MCHC (RBC) [Mass/Vol] 32.5 g/dL Normal 32-36 [facility] Comment on above: Performed By: #### C FAITH, CBCA, #### [facility] ([id number]) [address], [address] [place] [address] MCV (RBC) [Entitic vol] 85 fL Normal 80-100 [facility] Comment on above: Performed By: #### C FAITH, CBCA, #### [facility] ([id number]) [address], [address] [place] [address] Monocytes (Bld) [#/Vol] 1.1 10*3/uL High 0-0.9 [facility] Comment on above: Performed By: #### C FAITH, CBCA, #### [facility] ([id number]) [address], [address] [place] [address] Monocytes/100 WBC (Bld) 13.0 % Normal [facility] Comment on above: Performed By: #### C FAITH, CBCA, #### [facility] ([id number]) [address], [address] [place] [address] Neutrophils/100 WBC (Bld) 71.3 % Normal [facility] Comment on above: Performed By: #### C FAITH, CBCA, #### [facility] ([id number]) [address], [address] [place] [address] Platelet mean volume (Bld) [Entitic vol] 7.9 fL Normal 7-12 [facility] Comment on above: Performed By: #### C FAITH, CBCA, #### [facility] ([id number]) [address], [address] [place] [address] Platelets (Bld) [#/Vol] 202 10*3/uL Normal 150-450 [facility] Comment on above: Performed By: #### C FAITH, CBCA, #### [facility] ([id number]) [address], [address] [place] [address] RBC COUNT 2.72 X10E12/L Low 3.80-5.20 [facility] Comment on above: Performed By: #### C CARMEN CUEVAS, #### [facility] ([id number]) [address], [address] [place] [address] WBC (Bld) [#/Vol] 8.8 10*3/uL Normal 4.0-11.0 [facility] Comment on above: Performed By: #### C CARMEN CUEVAS, #### [facility] ([id number]) [address], [address] [place] [address] COMPREHENSIVE METABOLIC PANE Dickson 02-15-2025 Albumin [Mass/Vol] 3.0 g/dL Low 3.2-5.3 [facility] Comment on above: Performed By: #### C CARMEN CUEVAS, #### [facility] ([id number]) [address], [address] [place] [address] ALP [Catalytic activity/Vol] 94 U/L Normal 39-130 [facility] Comment on above: Performed By: #### C CARMEN CUEVAS, 73046-9 #### [facility] ([id number]) [address], [address] [place] [address] ALT [Catalytic activity/Vol] 31 U/L Normal 0-31 [facility] Comment on above: Performed By: #### C CARMEN CUEVAS, #### [facility] ([id number]) [address], [address] [place] [address] Anion gap [Moles/Vol] 8 mmol/L Normal 5-15 [facility] Comment on above: Performed By: #### C CARMEN CUEVAS, 21892-7 #### [facility] ([id number]) [address], [address] [place] [address] AST [Catalytic activity/Vol] 42 U/L High 0-41 [facility] Comment on above: Performed By: #### C CARMEN CUEVAS, #### [facility] ([id number]) [address], [address] [place] [address] Bilirubin [Mass/Vol] 0.3 mg/dL Normal 0.3-1.2 [facility] Comment on above: Performed By: #### C CARMEN CUEVAS, #### [facility] ([id number]) [address] [address] [place] [address] Calcium [Mass/Vol] 8.6 mg/dL Normal 8.5-10.5 [facility] Comment on above: Performed By: #### CARMEN Maravilla MP, #### [facility] ([id number]) [address] [place] [address] Chloride [Moles/Vol] 102 mmol/L Normal 98-109 [facility] Comment on above: Performed By: #### C CARMEN CUEVAS, #### [facility] ([id number]) [address] [place] [address] CO2 [Moles/Vol] 27 mmol/L Normal 22-32 [facility] Comment on above: Performed By: #### CARMEN Maravilla MP, #### [facility] ([id number]) [address], [address] [place] [address] Creatinine [Mass/Vol] 1.44 mg/dL High 0.40-1.00 [facility] Comment on above: Result Comment: METH OD TRACEABLE TO IDMS STANDARD Performed By: #### C CARMEN CUEVAS, #### [facility] ([id number]) [address], [address] [place] [address] GFR/1.73 sq M.predicted among non-blacks MDRD (S/P/Bld) [Vol rate/Area] 37 mL/min/{1.73_m2} Low >59 [facility] Comment on above: Result Comment: Reported eGFR is based on the CKD-EPI 2020 equation that does not use a race coefficient. Performed By: #### C CARMEN CUEVAS, #### [facility] ([id number]) [address], [address] [place] [address] Glucose [Mass/Vol] 132 mg/dL High 65-99 [facility] Comment on above: Performed By: #### C CARMEN CUEVAS, #### [facility] ([id number]) [address], [address] [place] [address] Potassium [Moles/Vol] 4.5 mmol/L Normal 3.5-5.0 [facility] Comment on above: Performed By: #### CARMEN Maravilla MP, #### [facility] ([id number]) [address], [address] [place] [address] Protein [Mass/Vol] 6.1 g/dL Normal 6.0-8.0 [facility] Comment on above: Performed By: #### CARMEN Maravilla MP, #### [facility] ([id number]) [address], [address] [place] [address] Sodium [Moles/Vol] 137 mmol/L Normal 134-146 [facility] Comment on above: Performed By: #### CARMEN Maravilla MP, #### [facility] ([id number]) [address], [address] [place] [address] Urea nitrogen [Mass/Vol] 27 mg/dL Normal 5-27 [facility] Comment on above: Performed By: #### CARMEN Maravilla MP, #### [facility] ([id number]) [address] [place] [address] Glucose Glucometer (BldC) [M ass/Vol]on 02-15-2025 Glucose [Mass/Vol] 244 mg/dL High 65-99 [facility] Glucose [Mass/Vol] 127 mg/dL High 65-99 [facility] MAGNESIUMon 02-15-2025 Magnesium [Mass/Vol] 1.9 mg/dL Normal 1.8-2.6 [facility] Comment on above: Performed By: #### C MP, CBCA, 25583-3 #### [facility] ([id number]) [address], [address] [place] [address] Vancomycin [Mass/Vol]on VANCOMYCIN 7.8 ug/mL Normal 5.0-40.0 [facility] Comment on above: Result Comment: Peak 30-40 ug/mL Trough 5-20 ug/ml Performed By: #### 2 0578-1 #### [facility] ([id number]) [address], [address] [place] [address] BLOOD CULTUREon 02-14-2025 Bacteria identified Aer cx Nom (Bld) SPECIMEN NOTES SUBOPTIMAL VOLUME OF BLOOD COLLECTED, RESULTS MAY BE AFFECTED. CULTURE RESULTS STAPHYLOCOCCUS AUREUS METHICILLIN RESISTANT FOR SUSCEPTIBILITY, SEE PREVIOUS REPORT. Normal [facility] Comment on above: Performed By: #### 1 7928-3 ####[facility] ([id number])[address], [address] [place] [address] Bacteria identified Aer cx Nom (Bld) SPECIMEN NOTES SUBOPTIMAL VOLUME OF BLOOD COLLECTED, RESULTS MAY BE AFFECTED. CULTURE RESULTS STAPHYLOCOCCUS AUREUS METHICILLIN RESISTANT FOR SUSCEPTIBILITY, SEE PREVIOUS REPORT. [facility] Comment on above: Performed By: #### 1 7928-3 ####[facility] ([id number])[address], [address] [place] [id number] CBC AND AUTO DIFFon 02-15-20 25 ABSOLUTE BASOPHIL 0.0 X10E9/L Normal 0.0-0.2 [facility] Comment on above: Performed By: #### C NATIVIDAD, CMP, 81986-4, ####[facility] ([id number])[address] [place] [address] 32616 ABSOLUTE NEUTROPHIL 8.4 X10E9/L High 1.5-6.6 [facility] Comment on above: Performed By: #### C [place]IDAD, CMP, 17535-3, ####[facility] ([id number])[address] [place] [address] 27764 Basophils/100 WBC (Bld) 0.2 % Normal [facility] Comment on above: Performed By: #### Renita HENSON, CMP, 17698-0, ####[facility] ([id number])[address] [place] [address] 23887 Eosinophils (Bld) [#/Vol] 0.0 10*3/uL Normal 0.0-0.4 [facility] Comment on above: Performed By: #### Renita HENSON, CMP, 21439-5, ####[facility] ([id number])[address] [place] [address] 75799 Eosinophils/100 WBC (Bld) 0.3 % Normal [facility] Comment on above: Performed By: #### C NATIVIDAD, CMP, 31571-9, ####[facility] ([id number])[address] [place] [address] 38766 Erythrocyte distribution width (RBC) [Ratio] 16.8 % High 11.5-15.0 [facility] Comment on above: Performed By: #### Renita HENSON, CMP, 19923-8, ####[facility] ([id number])[address] [place] [address] 57685 Hematocrit (Bld) [Volume fraction] 22.6 % Low 35-47 [facility] Comment on above: Performed By: #### C NATIVIDAD CMP, 74064-8, ####[facility] ([id number])[address] [place] [address] 05250 Hemoglobin (Bld) [Mass/Vol] 7.4 g/dL Low 11.7-15.5 [facility] Comment on above: Performed By: #### C NATIVIDAD CMP, 34544-4, ####[facility] ([id number])[address] [place] [address] 27659 Lymphocytes (Bld) [#/Vol] 1.3 10*3/uL Normal 1.0-3.5 [facility] Comment on above: Performed By: #### Renita HENSON CMP, 76883-8, ####[facility] ([id number])[address] [place] [address] 23838 Lymphocytes/100 WBC (Bld) 12.2 % Normal [facility] Comment on above: Performed By: #### Renita HENSON, CMP, 47196-6, ####[facility] ([id number])[address] [place] [address] 33009 MCH (RBC) [Entitic mass] 27.9 pg Normal 27-34 [facility] Comment on above: Performed By: #### C NATIVIDAD, CMP, 64124-2, ####[facility] [facility] ([id number])[address] [place] [address] 95961 MCHC (RBC) [Mass/Vol] 33.0 g/dL Normal 32-36 [facility] Comment on above: Performed By: #### Renita HENSON CMP, 81041-5, ####[facility] ([id number])[address] [place] [address] 39615 MCV (RBC) [Entitic vol] 84 fL Normal 80-100 [facility] Comment on above: Performed By: #### Renita HENSON, CMP, 99296-5, ####[facility] ([id number])[address] [place] [address] 12271 Monocytes (Bld) [#/Vol] 0.9 10*3/uL Normal 0-0.9 [facility] Comment on above: Performed By: #### Renita HENSON, CMP, 46939-7, ####[facility] ([id number])[address] [place] [address] 71256 Monocytes/100 WBC (Bld) 8.1 % Normal [facility] Comment on above: Performed By: #### Renita HENSON, CMP, 42070-2, ####[facility] ([id number])[address] [place] [address] 17319 Neutrophils/100 WBC (Bld) 79.2 % Normal [facility] Comment on above: Performed By: #### Renita HENSON, CMP, 47153-2, ####[facility] ([id number])[address] [place] [address] 44845 Platelet mean volume (Bld) [Entitic vol] 7.7 fL Normal 7-12 [facility] Comment on above: Performed By: #### Renita BCA, CMP, 13508-6, ####[facility] ([id number])[address] [place] [address] 26206 Platelets (Bld) [#/Vol] 208 10*3/uL Normal 150-450 [facility] Comment on above: Performed By: #### Renita HENSON, CMP, 57871-7, ####[facility] ([id number])[address] [place] [address] 83507 RBC COUNT 2.67 X10E12/L Low 3.80-5.20 [facility] Comment on above: Performed By: #### C BCA, CMP, 75266-1, ####[facility] ([id number])[address] [place] [address] 19378 WBC (Bld) [#/Vol] 10.5 10*3/uL Normal 4.0-11.0 [facility] Comment on above: Performed By: #### C BCA, CMP, 74383-8, ####[facility] ([id number])[address] [place] [address] 30067 COMPREHENSIVE METABOLIC PANE Dickson 02-14-2025 Albumin [Mass/Vol] 2.8 g/dL Low 3.2-5.3 [facility] Comment on above: Performed By: #### C BCA, CMP, 60952-8, ####[facility] ([id number])[address] [place] [address] 13344 ALP [Catalytic activity/Vol] 88 U/L Normal 39-130 [facility] Comment on above: Performed By: #### C BCA, CMP, 85930-8, ####[facility] ([id number])[address] [place] [address] 70061 ALT [Catalytic activity/Vol] 21 U/L Normal 0-31 [facility] Comment on above: Performed By: #### C BCA, CMP, 62643-0, ####[facility] ([id number])[address] [place] [address] 73793 Anion gap [Moles/Vol] 9 mmol/L Normal 5-15 [facility] Comment on above: Performed By: #### C BCA, CMP, 38461-1, ####[facility] ([id number])[address] [place] [address] [place] [address] AST [Catalytic activity/Vol] 27 U/L Normal 0-41 [facility] Comment on above: Performed By: #### C BCA, CMP, 37535-5, ####[facility] ([id number])[address] [place] [address] 65280 Bilirubin [Mass/Vol] 0.3 mg/dL Normal 0.3-1.2 [facility] Comment on above: Performed By: #### C BCA, CMP, 17991-3, ####[facility] ([id number])[address] [place] [address] 32008 Calcium [Mass/Vol] 8.5 mg/dL Normal 8.5-10.5 [facility] Comment on above: Performed By: #### C BCA, CMP, 50453-9, ####[facility] ([id number])[address] [place] [address] 45384 Chloride [Moles/Vol] 99 mmol/L Normal 98-109 [facility] Comment on above: Performed By: #### C BCA, CMP, 65587-3, ####[facility] ([id number])[address] [place] [address] [place] [address] CO2 [Moles/Vol] 26 mmol/L Normal 22-32 [facility] Comment on above: Performed By: #### C BCA, CMP, 94149-1, ####[facility] ([id number])[address] [place] [address] [place] [address] Creatinine [Mass/Vol] 1.96 mg/dL High 0.40-1.00 [facility] Comment on above: Result Comment: METH OD TRACEABLE TO IDMS STANDARD Performed By: #### C RUBEN HENSON, 83263-9, ####[facility] ([id number])[address] [place] [address] 88647 GFR/1.73 sq M.predicted among non-blacks MDRD (S/P/Bld) [Vol rate/Area] 26 mL/min/{1.73_m2} Low >59 [facility] Comment on above: Result Comment: Repo rted eGFR is based on theCKD-EPI 2020 equation that doesnot use a race coefficient. Performed By: #### C RUBEN HENSON, 06443-2, ####[facility] ([id number])[address] [place] [address] 92999 Glucose [Mass/Vol] 187 mg/dL High 65-99 [facility] Comment on above: Performed By: #### C RUBEN HENSON, 26838-4, ####[facility] ([id number])[address] [place] [address] 33804 Potassium [Moles/Vol] 4.4 mmol/L Normal 3.5-5.0 [facility] Comment on above: Performed By: #### C RUBEN HENSON, 46115-9, ####[facility] ([id number])[address] [place] [address] 37727 Protein [Mass/Vol] 6.1 g/dL Normal 6.0-8.0 [facility] Comment on above: Performed By: #### C RUBEN HENSON, 80517-8, ####[facility] ([id number])[address] [place] [address] 64208 Sodium [Moles/Vol] 134 mmol/L Normal 134-146 [facility] Comment on above: Performed By: #### C RUBEN HENSON, 96778-8, ####[facility] ([id number])[address] [place] [address] Urea nitrogen [Mass/Vol] 38 mg/dL High 5-27 [facility] Comment on above: Performed By: #### C RUBEN HENSON, 04102-1, ####[facility] ([id number])[address] [place] [address] CHEST WO CONTon CT CHEST WO CONT Normal [facility] Glucose Glucometer (BldC) [M ass/Vol]on 02-14-2025 Glucose [Mass/Vol] 161 mg/dL High 65-99 [facility] Glucose [Mass/Vol] 278 mg/dL High 65-99 [facility] Lactate (P obed) [Moles/Vol]o n 02-14-2025 LACTATE W/REFLEX 1.8 mmol/L Normal 0.4-2.[address] [facility] Comment on above: Result Comment: Resu lt did not trigger repeat Lactate,re-order if needed. Performed By: #### 3 2133-1 ####[facility] ([id number])[address] [place] [address] 55670 MAGNESIUMon 02-14-2025 Magnesium [Mass/Vol] 2.0 mg/dL Normal 1.8-2.6 [facility] Comment on above: Performed By: #### C RUBEN HENSON, 62040-6, ####[facility] ([id number])[address] [place] [address] 60064 Magnesium Ionized ISE (Bld) [Moles/Vol]on 02-14-2025 Magnesium [Moles/Vol] 0.53 mmol/L Normal 0.45-0.74 [facility] Comment on above: Result Comment: NEW REFERENCE RANGE Performed By: #### 7 3572-0 ####[facility] ([id number])[address] [facility], [address] [address] Procalcitonin IA [Mass/Vol]o n 02-14-2025 PROCALCITONIN 14.12 ng/mL High <0.05 [facility] Comment on above: Result Comment: NOTE <0.50 ng/mL - Low risk of severe sepsis and/or septic shock.<2.00 ng/mL - Recommend retesting within 6-24 hours.>2.00 ng/mL - High risk of sepsis and/or septic shock. Performed By: #### C BCA, CMP, 00862-6, ####[facility] ([id number])[address] [place] [address] 39656 XR CHEST 1 VWon 02-14-2025 XR CHEST 1 VW Normal [facility] BLOOD CULTUREon 02-13-2025 Bacteria identified Aer cx Nom (Bld) CULTURE RESULTS STAPHYLOCOCCUS AUREUS METHICILLIN RESISTANT FOR SUSCEPTIBILITY, SEE PREVIOUS REPORT. Normal [facility] Comment on above: Performed By: #### 1 7928-3 ####[facility] ([id number])[address], [address] [address] Bacteria identified Aer cx Nom (Bld) CULTURE RESULTS STAPHYLOCOCCUS AUREUS METHICILLIN RESISTANT FOR SUSCEPTIBILITY, SEE PREVIOUS REPORT. Normal [facility] Comment on above: Performed By: #### 1 7928-3 ####[facility] ([id number])[address] [address] CBC AND AUTO DIFFon 02-14-20 25 ABSOLUTE BASOPHIL 0.0 X10E9/L Normal 0.0-0.2 [facility] Comment on above: Performed By: #### F EPR, 2276-4, 45872-2, 2284-8, 2132-07 ####[facility] ([id number])[address], [address] [address]#### CBCA, 63437-0, CMP ####[facility] ([id number])[address] [place] [address] 88327 ABSOLUTE NEUTROPHIL 13.1 X10E9/L High 1.5-6.6 [facility] Comment on above: Performed By: #### F EPR, 6-4, 97712-3, 2284-06, 2132-07 ####[facility] ([id number])[address], [address] [place] [address] 29351#### CBCDanielle, 52983-3, CMP ####[facility] ([id number])[address] [place] [address] 44479 Basophils/100 WBC (Bld) 0.2 % Normal [facility] Comment on above: Performed By: #### F EPR, 6-4, 20145-8, 2284-06, 2132-07 ####[facility] ([id number])[address], [address] [place] [address] 79300#### CARMEN, , CMP ####[facility] ([id number])[address] [place] [address] 26683 Eosinophils (Bld) [#/Vol] 0.0 10*3/uL Normal 0.0-0.4 [facility] Comment on above: Performed By: #### F EPR, 6-4, 54367-3, 2284-06, 2132-07 ####[facility] ([id number])[address], [address] [place] [address] 08447#### CBCA, , CMP ####[facility] ([id number])[address] [place] [address] 26510 Eosinophils/100 WBC (Bld) 0.0 % Normal [facility] Comment on above: Performed By: #### F EPR, 6-4, 61412-8, 2284-06, 2132-07 ####[facility] ([id number])[address], [address] [place] [address] 11689#### CBCDanielle, 84447-7, CMP ####[facility] ([id number])[address] [place] [address] 45816 Erythrocyte distribution width (RBC) [Ratio] 16.8 % High 11.5-15.0 [facility] Comment on above: Performed By: #### F EPR, 2276-4, 25956-5, 8, 2132-07 ####[facility] ([id number])[address], [address] [place] [address] 20734#### CARMEN, 45294-1, CMP ####[facility] ([id number])[address] [place] [address] 66393 Hematocrit (Bld) [Volume fraction] 24.2 % Low 35-47 [facility] Comment on above: Performed By: #### F EPR, 6-4, 60687-0, 2284-06, 2132-07 ####[facility] ([id number])[address], [address] [place] [address] 12263#### CARMEN, 89709-5, CMP ####[facility] ([id number])[address] [place] [address] 58135 Hemoglobin (Bld) [Mass/Vol] 7.9 g/dL Low 11.7-15.5 [facility] Comment on above: Performed By: #### F EPR, 2276-4, 45710-0, 2284-06, 2132-07 ####[facility] ([id number])[address], [address] [place] [address]#### CBCA, 97400-6, CMP ####[facility] ([id number])[address] [place] [address] 48215 Lymphocytes (Bld) [#/Vol] 0.4 10*3/uL Low 1.0-3.5 [facility] Comment on above: Performed By: #### F EPR, 6-4, 81028-1, 2284-06, 2132-07 ####[facility] ([id number])[address], [address] [place] [address] 09404#### CARMEN, , CMP ####[facility] ([id number])[address] [place] [address] 53233 Lymphocytes/100 WBC (Bld) 2.7 % Normal [facility] Comment on above: Performed By: #### F EPR, 6-4, 10271-0, 2284-06, 2132-07 ####[facility] ([id number])[address] [address] [place] [address] 77761#### CARMEN, , CMP ####[facility] ([id number])[address] [place] [address] 47849 MCH (RBC) [Entitic mass] 27.6 pg Normal 27-34 [facility] Comment on above: Performed By: #### F EPR, 2275-4, 92690-8, 2284-06, 2132-07 ####[facility] ([id number])[address], [address] [place] [address] 76836#### CARMEN, , CMP ####[facility] ([id number])[address] [place] [address] 09721 MCHC (RBC) [Mass/Vol] 32.8 g/dL Normal 32-36 [facility] Comment on above: Performed By: #### F EPR, 6-4, 95487-7, 2284-06, 2132-07 ####[facility] ([id number])[address] [address] [place] [address] 93346#### CARMEN, , CMP ####[facility] ([id number])[address] [place] [address] 51823 MCV (RBC) [Entitic vol] 84 fL Normal 80-100 [facility] Comment on above: Performed By: #### F EPR, 6-4, 91576-6, 8, 2132-07 ####[facility] ([id number])[address], [address] [place] [address] 56499#### CBCDanielle, 74783-9, CMP ####[facility] ([id number])[address] [place] [address] 34155 Monocytes (Bld) [#/Vol] 0.8 10*3/uL Normal 0-0.9 [facility] Comment on above: Performed By: #### F EPR, 2275-4, 91841-9, 2284-06, 2132-07 ####[facility] ([id number])[address], [address] [place] [address] 29696#### CBCA, 63723-7, CMP ####[facility] ([id number])[address] [place] [address] 40992 Monocytes/100 WBC (Bld) 5.4 % Normal [facility] Comment on above: Performed By: #### F EPR, 6-4, 29574-9, 2284-06, 2132-07 ####[facility] ([id number])[address], [address] [place] [address] 94013#### CBCA, 79744-0, CMP ####[facility] ([id number])[address] [place] [address] 54041 Neutrophils/100 WBC (Bld) 91.7 % Normal [facility] Comment on above: Performed By: #### F EPR, 6-4, 84047-5, 2284-06, 2132-07 ####[facility] ([id number])[address] [address]#### CARMEN, 12518-3, CMP ####[facility] ([id number])[address] [place] [address] 92532 Platelet mean volume (Bld) [Entitic vol] 7.9 fL Normal 7-12 [facility] Comment on above: Performed By: #### F EPR, 2276-4, 71919-0, 2283-8, 2132-07 ####[facility] ([id number])[address] [address]#### CARMEN, , CMP ####[facility] ([id number])[address] [place] [address] 27022 Platelets (Bld) [#/Vol] 273 10*3/uL Normal 150-450 [facility] Comment on above: Performed By: #### F EPR, 2276-4, 29363-6, 2283-8, 2132-07 ####[facility] ([id number])[address] [facility], [address] [address]#### CARMEN, 60767-9, CMP ####[facility] ([id number])[address] [place] [address] 92712 RBC COUNT 2.87 X10E12/L Low 3.80-5.20 [facility] Comment on above: Performed By: #### F EPR, 2276-4, 66192-7, 2283-8, 2132-07 ####[facility] ([id number])[address] [address]#### CBCDanielle, , CMP ####[facility] ([id number])[address] [place] [address] 99074 WBC (Bld) [#/Vol] 14.3 10*3/uL High 4.0-11.0 [facility] Comment on above: Performed By: #### F EPR, 2276-4, 35753-6, 8, 2132-07 ####[facility] ([id number])[address] [facility], [address] [place] [address] 77646#### CARMEN, 52914-3, CMP ####[facility] ([id number])[address] [place] [address] 09109 COMPREHENSIVE METABOLIC PANE Dickson 02-13-2025 Albumin [Mass/Vol] 3.0 g/dL Low 3.2-5.3 [facility] Comment on above: Performed By: #### F EPR, 6-4, 89983-5, 8, 2132-07 ####[facility] ([id number])[address] [facility], [address] [place] [address] 76430#### CARMEN, 39951-1, CMP ####[facility] ([id number])[address] [place] [address] 75069 ALP [Catalytic activity/Vol] 104 U/L Normal 39-130 [facility] Comment on above: Performed By: #### F EPR, 6-4, 81316-0, 2284-06, 2132-07 ####[facility] ([id number])[address] [facility], [address] [address]#### CBCA, 07848-3, CMP ####[facility] ([id number])[address] [place] [address] 92401 ALT [Catalytic activity/Vol] 14 U/L Normal 0-31 [facility] Comment on above: Performed By: #### F EPR, 2276-4, 73802-0, 2283-8, 2132-07 ####[facility] ([id number])[address], [address] [place] [address] 50215#### CARMEN, 28888-2, CMP ####[facility] ([id number])[address] [place] [address] 79810 Anion gap [Moles/Vol] 8 mmol/L Normal 5-15 [facility] Comment on above: Performed By: #### F EPR, 2276-4, 74435-4, 8, 2132-07 ####[facility] ([id number])[address] [facility], [address] [place] [address] 23126#### CARMEN, 70924-4, CMP ####[facility] ([id number])[address] [place] [address] 14507 AST [Catalytic activity/Vol] 19 U/L Normal 0-41 [facility] Comment on above: Performed By: #### F EPR, 6-4, 43179-0, 2283-8, 2132-07 ####[facility] ([id number])[address] [facility], [address] [place] [address] 72198#### CARMEN, 32006-9, CMP ####[facility] ([id number])[address] [place] [address] 27755 Bilirubin [Mass/Vol] 0.6 mg/dL Normal 0.3-1.2 [facility] Comment on above: Performed By: #### F EPR, 2276-4, 68332-6, 8, 2132-07 ####[facility] ([id number])[address], [address] [place] [address] 00077#### CARMEN, 55870-6, CMP ####[facility] ([id number])[address] [place] [address] 41825 Calcium [Mass/Vol] 8.1 mg/dL Low 8.5-10.5 [facility] Comment on above: Performed By: #### F EPR, 2276-4, 80605-6, 8, 2132-07 ####[facility] ([id number])[address], [address] [place] [address] 46591#### CARMEN, 09931-7, CMP ####[facility] ([id number])[address] [place] [address] 90696 Chloride [Moles/Vol] 103 mmol/L Normal 98-109 [facility] Comment on above: Performed By: #### F EPR, 6-4, 08781-3, 2284-06, 2132-07 ####[facility] ([id number])[facility] [address] [place] [address] 69927#### CARMEN, , CMP ####[facility] ([id number])[address] [place] [address] 49653 CO2 [Moles/Vol] 25 mmol/L Normal 22-32 [facility] Comment on above: Performed By: #### F EPR, 6-4, 70935-0, 2284-06, 2132-07 ####[facility] ([id number])[address] [address] [place] [address] 42559#### CARMEN, , CMP ####[facility] ([id number])[address] [place] [address] 20320 Creatinine [Mass/Vol] 1.73 mg/dL High 0.40-1.00 [facility] Comment on above: Result Comment: METH OD TRACEABLE TO IDMS STANDARD Performed By: #### F EPR, 2276-4, 29874-1, 2284-06, 2132-07 ####[facility] ([id number])[address] [address] [place] [address] 76145#### CARMEN, , CMP ####[facility] ([id number])[address] [place] [address] 36638 GFR/1.73 sq M.predicted among non-blacks MDRD (S/P/Bld) [Vol rate/Area] 30 mL/min/{1.73_m2} Low >59 [facility] Comment on above: Result Comment: Repo rted eGFR is based on theCKD-EPI 2020 equation that doesnot use a race coefficient. Performed By: #### F EPR, 2276-4, 68908-8, 2283-8, 2132-07 ####[facility] ([id number])[address] [place] [address] 60221#### CARMEN, 82576-7, CMP ####[facility] ([id number])[address] [place] [address] 78528 Glucose [Mass/Vol] 238 mg/dL High 65-99 [facility] Comment on above: Performed By: #### F EPR, 2276-4, 12558-9, 2283-8, 2132-07 ####[facility] ([id number])[address] [place] [address] 23170#### CARMEN, 71450-2, CMP ####[facility] ([id number])[address] [place] [address] 72105 Potassium [Moles/Vol] 4.5 mmol/L Normal 3.5-5.0 [facility] Comment on above: Performed By: #### F EPR, 2276-4, 73789-9, 2283-8, 2132-07 ####[facility] ([id number])[address] [place] [address] 57146#### CARMEN, 43554-5, CMP ####[facility] ([id number])[address] [place] [address] 51115 Protein [Mass/Vol] 6.5 g/dL Normal 6.0-8.0 [facility] Comment on above: Performed By: #### F EPR, 2276-4, 37483-6, 8, 2132-07 ####[facility] ([id number])[address], [address] [place] [address] 71883#### CBCDanielle, 32678-5, CMP ####[facility] ([id number])[address] [place] [address] 80198 Sodium [Moles/Vol] 136 mmol/L Normal 134-146 [facility] Comment on above: Performed By: #### F EPR, 6-4, 22425-9, 2284-06, 2132-07 ####[facility] ([id number])[address] [facility], [address] [address]#### CBCDanielle, 12082-0, CMP ####[facility] ([id number])[address] [place] [address] 48283 Urea nitrogen [Mass/Vol] 34 mg/dL High 5-27 [facility] Comment on above: Performed By: #### F EPR, 6-4, 41289-2, 2284-06, 2132-07 ####[facility] ([id number])[address] [address]#### CBCA, 74156-3, CMP ####[facility] ([id number])[address] [place] [address] FECAL OCCULT BLOODon 025 Hemoglobin.gastro intestinal Ql (Stl) Negative Normal NEG [facility] Comment on above: Performed By: #### 2 335-8 ####[facility] ([id number])[address] [place] [address] FERRITINon 02-13-2025 Ferritin [Mass/Vol] 98 ng/mL Normal 11-307 [facility] Comment on above: Performed By: #### F EPR, 2276-4, 68094-2, 2283-8, 2132-07 ####[facility] ([id number])[address], [address] [place] [address]#### CBCDanielle, 64515-5, CMP ####[facility] ([id number])[address] [place] [address]69 Folate [Mass/Vol]on 02-14-20 25 FOLIC ACID 5.2 ng/mL Low >5.8 [facility] Comment on above: Result Comment: NEW REFERENCE RANGE Performed By: #### F EPR, 2276-4, 74429-6, 2283-8, 2132-07 ####[facility] ([id number])[address] [facility], [address] [place] [address]#### CBCDanielle, 34855-4, CMP ####[facility] ([id number])[address] [place] [address] Glucose Glucometer (BldC) [M ass/Vol]on 02-13-2025 Glucose [Mass/Vol] 218 mg/dL High 65-99 [facility] Glucose [Mass/Vol] 277 mg/dL High 65-99 [facility] Glucose [Mass/Vol] 259 mg/dL High 65-99 [facility] Glucose [Mass/Vol] 210 mg/dL High 65-99 [facility] HGBon 02-13-2025 Hematocrit (Bld) [Volume fraction] 24.3 % Low 35-47 [facility] Comment on above: Performed By: #### H H ####[facility] ([id number])[address] [place] [address] Hemoglobin (Bld) [Mass/Vol] 7.9 g/dL Low 11.7-15.5 [facility] Comment on above: Performed By: #### H H ####[facility] ([id number])[address] [place] [address] IRON PROFILEon 02-13-2025 Iron [Mass/Vol] 11 ug/dL Low 50-170 [facility] Comment on above: Performed By: #### F EPR, 2276-4, 26922-4, 2283-8, 2132-07 ####[facility] ([id number])[address] [place] [address], [address] [place] [address]#### CARMEN, 37311-8, CMP ####[facility] ([id number])[address] [place] [address] IRON BINDING 279 ug/dL Normal 250-425 [facility] Comment on above: Performed By: #### F EPR, 6-4, 13393-6, 2284-06, 2132-07 ####[facility] ([id number])[address] [place] [address], [address] [place] [address]#### CARMEN, 80357-2, CMP ####[facility] ([id number])[address] [place] [address] IRON SATURATION 4 % SATURATION Low 15-50 [facility] Comment on above: Performed By: #### F EPR, 6-4, 88705-1, 2284-06, 2132-07 ####[facility] ([id number])[address] [place] [address], [address] [place] [address] 12476#### CARMEN, 33711-8, CMP ####[facility] ([id number])[address] [place] [address] 06200 MAGNESIUMon 02-13-2025 Magnesium [Mass/Vol] 1.9 mg/dL Normal 1.8-2.6 [facility] Comment on above: Performed By: #### 1 9123 ####[facility] ([id number])[address] [place] [address] Magnesium [Mass/Vol] 1.7 mg/dL Low 1.8-2.6 [facility] Comment on above: Performed By: #### F EPR, 2275-4, 68283-0, 2283-8, 2132-07 ####[facility] ([id number])[address] [place] [address], [address] [place] [address] 28017#### CARMEN, 63925-1, CMP ####[facility] ([id number])[address] [place] [address] 21191 VITAMIN B12on 02-13-2025 Cobalamin (Vitamin B12) [Mass/Vol] 187 pg/mL Normal 180-914 [facility] Comment on above: Performed By: #### F EPR, 2276-02, 96415-0, 2284-06, 2132-07 ####[facility] ([id number])[address] [place] [address], [address] [address]#### CBCA, 55818-1, CMP ####[facility] ([id number])[address] [place] [address] 09848 Vitamin D+Metabolites [Mass/ Vol]on 02-13-2025 VITAMIN D 25 HYD TOT 36.2 ng/mL Normal 30-100 [facility] Comment on above: Result Comment: Veroniac min D status 25 [place] Vitamin D Deficiency <20 ng/mLInsufficiency 20-29 ng/mLSufficiency 30-100 ng/mLToxicity >100 ng/mLNOTE: A pediatric reference range has not beenestablished by the machine ii trimmer of this kit.The [place] [employer] recommendsa Vitamin D level of = or >20ng/mL in infantsand children. Performed By: #### F EPR, 4, 44328-7, 2284-8, 2132-9 ####[facility] ([id number])[address] [place] [address], [address] [place] [address], [place] [address]#### CBCA, 96091-3, CMP ####[facility] ([id number])[address] [place] [address] 32639 ARTERIAL BLOOD GASon 025 TATO'S TEST Normal [facility] Comment on above: Performed By: #### A BG ####[facility] ([id number])[address] [place] [address] 27136 Base excess Calc (Bld) [Moles/Vol] 4.0 mmol/L High 0.0-2.0 [facility] Comment on above: Performed By: #### A BG ####[facility] ([id number])[address] [place] [address] 17621 Body temperature 98.6 [degF] Normal 37.0 [facility] Comment on above: Performed By: #### A BG ####[facility] ([id number])[address] [place] [address] 69745 HCO3 (Bld) [Moles/Vol] 29.9 mmol/L High 22-26 [facility] Comment on above: Performed By: #### A BG ####[facility] ([id number])[address] [place] [address] 16252 INSP. O2 CONC. 30 % Normal [facility] Comment on above: Performed By: #### A BG ####[facility] ([id number])[address] [place] [address] 37338 Oxygen (Bld) [Partial pressure] 76 mm[Hg] Low 80-100 [facility] Comment on above: Performed By: #### A BG ####[facility] ([id number])[address] [place] [address], [facility] [place] [address] Oxygen saturation in Blood 95.0 % Normal >90 [facility] Comment on above: Performed By: #### A BG ####[facility] ([id number])[address] [place] [address], [facility] [place] [address] OXYGEN SOURCE NC Normal [facility] Comment on above: Performed By: #### A BG ####[facility] ([id number])[address] [place] [address], [place] [address] PCO2 49.9 MMHG High 35-45 [facility] Comment on above: Performed By: #### A BG ####[facility] ([id number])[address] [place] [address], [place] [address] pH (Bld) 7.386 [pH] Normal 7.350-7.45 0 [facility] Comment on above: Performed By: #### A BG ####[facility] ([id number])[address] [place] [address], [place] [address] SAMPLE SITE RRad Normal [facility] Comment on above: Performed By: #### A BG ####[facility] ([id number])[address] [place] [address], [place] [address] SAMPLE TYPE ARTERIAL Normal [facility] Comment on above: Performed By: #### A BG ####[facility] ([id number])[address] [place] [address], [place] [address] BLOOD CULTUREon 02-12-2025 Bacteria identified Aer cx Nom (Bld) Resistant [facility] Comment on above: Performed By: #### 1 7928-3 ####[facility] ([id number])[address] [place] [address], [place] [address] ([id number])[address] [facility], [address] [place] [address] Bacteria identified Aer cx Nom (Bld) SPECIMEN NOTES RAC CULTURE RESULTS STAPHYLOCOCCUS AUREUS METHICILLIN RESISTANT FOR SUSCEPTIBILITY, SEE PREVIOUS REPORT. Normal [facility] Comment on above: Performed By: #### 1 7928-3 ####[facility] ([id number])[address] [place] [address] 73443[facility] ([id number])[address], [address], [place] [address] CBC AND AUTO DIFFon 02-13-20 25 ABSOLUTE BASOPHIL 0.0 X10E9/L Normal 0.0-0.2 [facility] Comment on above: Performed By: #### C BCA, 3040-3, 08200-6, 37237-9, CMP, 77088- 9, PINR, 32134-2 ####[facility] ([id number])[address] [place] [address] 84313 ABSOLUTE NEUTROPHIL 6.3 X10E9/L Normal 1.5-6.6 [facility] Comment on above: Performed By: #### C BCA, 3040-3, 60204-4, 37895-9, CMP, 03600- 9, PINR, 31387-3 ####[facility] ([id number])[address] [place] [address] 60289 Basophils/100 WBC (Bld) 0.4 % Normal [facility] Comment on above: Performed By: #### C BCA, 3040-3, 07729-9, 76554-1, CMP, 61203- 9, PINR, 33872-5 ####[facility] ([id number])[address] [place] [address] 34086 Eosinophils (Bld) [#/Vol] 0.1 10*3/uL Normal 0.0-0.4 [facility] Comment on above: Performed By: #### C BCA, 3040-3, 38065-7, 45049-6, CMP, 28489- 9, PINR, 83372-0 ####[facility] ([id number])[address] [place] [address] 27189 Eosinophils/100 WBC (Bld) 1.1 % Normal [facility] Comment on above: Performed By: #### C BCA, 3040-3, 41609-4, 76887-9, CMP, 67167- 9, PINR, 21800-6 ####[facility] ([id number])[address] [place] [address] 07086 Erythrocyte distribution width (RBC) [Ratio] 17.0 % High 11.5-15.0 [facility] Comment on above: Performed By: #### C BCA, 3040-3, 74686-2, 87653-6, CMP, 73214- 9, PINR, 04631-6 ####[facility] ([id number])[address] [place] [address] 29929 Hematocrit (Bld) [Volume fraction] 29.2 % Low 35-47 [facility] Comment on above: Performed By: #### C BCA, 3040-3, 71317-5, 95510-3, CMP, 95329- 9, PINR, 89909-7 ####[facility] ([id number])[address] [place] [address] 88304 Hemoglobin (Bld) [Mass/Vol] 9.5 g/dL Low 11.7-15.5 [facility] Comment on above: Performed By: #### C BCA, 3040-3, 64118-8, 78895-4, CMP, 74031- 9, PINR, 73565-9 ####[facility] ([id number])[address] [place] [address] 54506 Lymphocytes (Bld) [#/Vol] 0.7 10*3/uL Low 1.0-3.5 [facility] Comment on above: Performed By: #### C BCA, 3040-3, 78543-3, 23998-1, CMP, 47127- 9, PINR, 26545-2 ####[facility] ([id number])[address] [place] [address] 64344 Lymphocytes/100 WBC (Bld) 9.2 % Normal [facility] Comment on above: Performed By: #### C BCA, 3040-3, 53290-3, 26636-7, CMP, 33497- 9, PINR, 88631-7 ####[facility] ([id number])[address] [place] [address] 52119 MCH (RBC) [Entitic mass] 27.3 pg Normal 27-34 [facility] Comment on above: Performed By: #### C BCA, 3040-3, 06114-4, 84005-8, CMP, 07190- 9, PINR, 55263-6 ####[facility] ([id number])[address] [place] [address] 84807 MCHC (RBC) [Mass/Vol] 32.6 g/dL Normal 32-36 [facility] Comment on above: Performed By: #### C BCA, 3040-3, 66464-6, 66099-4, CMP, 58921- 9, PINR, 84701-6 ####[facility] ([id number])[address] [place] [address] 33088 MCV (RBC) [Entitic vol] 84 fL Normal 80-100 [facility] Comment on above: Performed By: #### C BCA, 3040-3, 19360-3, 84402-7, CMP, 73883- 9, PINR, 27519-4 ####[facility] ([id number])[address] [place] [address] 18083 Monocytes (Bld) [#/Vol] 0.5 10*3/uL Normal 0-0.9 [facility] Comment on above: Performed By: #### C BCA, 3040-3, 79819-3, 31423-2, CMP, 42153- 9, PINR, 96501-3 ####[facility] ([id number])[address] [place] [address] 64966 Monocytes/100 WBC (Bld) 7.0 % Normal [facility] Comment on above: Performed By: #### C BCA, 3040-3, 28448-9, 18773-9, CMP, 60305- 9, PINR, 05520-5 ####[facility] ([id number])[address] [place] [address] 52643 Neutrophils/100 WBC (Bld) 82.3 % Normal [facility] Comment on above: Performed By: #### C BCA, 3040-3, 81070-2, 47729-3, CMP, 33077- 9, PINR, 18532-1 ####[facility] ([id number])[address] [place] [address] 15794 Platelet mean volume (Bld) [Entitic vol] 7.6 fL Normal 7-12 [facility] Comment on above: Performed By: #### C BCA, 3040-3, 92483-0, 75390-7, CMP, 04649- 9, PINR, 75684-8 ####[facility] ([id number])[address] [place] [address] 39815 Platelets (Bld) [#/Vol] 384 10*3/uL Normal 150-450 [facility] Comment on above: Performed By: #### C BCA, 3040-3, 77850-3, 55508-3, CMP, 53458- 9, PINR, 20283-9 ####[facility] ([id number])[address] [place] [address] 95665 RBC COUNT 3.49 X10E12/L Low 3.80-5.20 [facility] Comment on above: Performed By: #### C BCA, 3040-3, 04152-3, 39283-9, CMP, 11277- 9, PINR, 33209-6 ####[facility] ([id number])[address] [place] [address] 83634 WBC (Bld) [#/Vol] 7.7 10*3/uL Normal 4.0-11.0 [facility] Comment on above: Performed By: #### C BCA, 3040-3, 23127-8, 85332-8, CMP, 57170- 9, PINR, 61743-9 ####[facility] ([id number])[address] [place] [address] 54173 COMPREHENSIVE METABOLIC PANE Dickson 02-12-2025 Albumin [Mass/Vol] 3.7 g/dL Normal 3.2-5.3 [facility] Comment on above: Performed By: #### C BCA, 3040-3, 25546-8, 70146-6, CMP, 26492- 9, PINR, 46734-8 ####[facility] ([id number])[address] [place] [address] 26397 ALP [Catalytic activity/Vol] 137 U/L High 39-130 [facility] Comment on above: Performed By: #### C BCA, 3040-3, 24047-6, 82012-9, CMP, 05034- 9, PINR, 24434-8 ####[facility] ([id number])[address] [place] [address] 32196 ALT [Catalytic activity/Vol] 17 U/L Normal 0-31 [facility] Comment on above: Performed By: #### C BCA, 3040-3, 13822-1, 64696-4, CMP, 33116- 9, PINR, 28777-2 ####[facility] ([id number])[address] [place] [address] 43804 Anion gap [Moles/Vol] 11 mmol/L Normal 5-15 [facility] Comment on above: Performed By: #### C BCA, 3040-3, 65633-3, 85711-0, CMP, 60280- 9, PINR, 21302-7 ####[facility] ([id number])[address] [place] [address] 33724 AST [Catalytic activity/Vol] 22 U/L Normal 0-41 [facility] Comment on above: Performed By: #### C BCA, 3040-3, 59073-6, 77780-6, CMP, 54809- 9, PINR, 39924-7 ####[facility] ([id number])[address] [place] [address] 97570 Bilirubin [Mass/Vol] 0.6 mg/dL Normal 0.3-1.2 [facility] Comment on above: Performed By: #### C BCA, 3040-3, 84494-7, 38209-6, CMP, 82251- 9, PINR, 86443-8 ####[facility] ([id number])[address] [place] [address] 16286 Calcium [Mass/Vol] 9.4 mg/dL Normal 8.5-10.5 [facility] Comment on above: Performed By: #### C BCA, 3040-3, 85366-1, 88094-8, CMP, 36530- 9, PINR, 08245-0 ####[facility] ([id number])[address] [place] [address] 47982 Chloride [Moles/Vol] 98 mmol/L Normal 98-109 [facility] Comment on above: Performed By: #### C BCA, 3040-3, 15200-3, 18311-1, CMP, 22936- 9, PINR, 90520-3 ####[facility] ([id number])[address] [place] [address] [place] [address] CO2 [Moles/Vol] 28 mmol/L Normal 22-32 [facility] Comment on above: Performed By: #### C BCA, 3040-3, 72304-8, 73755-1, CMP, 52916- 9, PINR, 91787-0 ####[facility] ([id number])[address] [place] [address] [place] [address] Creatinine [Mass/Vol] 1.79 mg/dL High 0.40-1.00 [facility] Comment on above: Result Comment: METH OD TRACEABLE TO IDMS STANDARD Performed By: #### C BCA, 3040-3, 55658-7, 35656-3, CMP, 26011-1, PINR, 48677-8 ####[facility] ([id number])[address] [place] [address] 43841 GFR/1.73 sq M.predicted among non-blacks MDRD (S/P/Bld) [Vol rate/Area] 29 mL/min/{1.73_m2} Low >59 [facility] Comment on above: Result Comment: Repo rted eGFR is based on theCKD-EPI 2020 equation that doesnot use a race coefficient. Performed By: #### C BCA, 3040-3, 18033-5, 90182-8, CMP, 62282-0, PINR, 34626-9 ####[facility] ([id number])[address] [place] [address] [place] [address] Glucose [Mass/Vol] 159 mg/dL High 65-99 [facility] Comment on above: Performed By: #### C BCA, 3040-3, 98149-3, 45028-4, CMP, 85169- 9, PINR, 50858-5 ####[facility] ([id number])[address] [place] [address] [place] [address] Potassium [Moles/Vol] 5.1 mmol/L High 3.5-5.0 [facility] Comment on above: Performed By: #### C BCA, 3040-3, 76423-3, 14677-0, CMP, 37118- 9, PINR, 37438-8 ####[facility] ([id number])[address] [place] [address] 72932 Protein [Mass/Vol] 8.0 g/dL Normal 6.0-8.0 [facility] Comment on above: Performed By: #### C BCA, 3040-3, 81591-1, 27420-3, CMP, 84761- 9, PINR, 58513-0 ####[facility] ([id number])[address] [place] [address] 97755 Sodium [Moles/Vol] 137 mmol/L Normal 134-146 [facility] Comment on above: Performed By: #### C BCA, 3040-3, 54066-9, 38519-0, CMP, 81167- 9, PINR, 92002-6 ####[facility] ([id number])[address] [place] [address] 23548 Urea nitrogen [Mass/Vol] 29 mg/dL High 5-27 [facility] Comment on above: Performed By: #### C BCA, 3040-3, 75107-5, 87772-3, CMP, 64522- 9, PINR, 22213-7 ####[facility] ([id number])[address] [place] [address] BRAIN WO CONTon CT BRAIN WO CONT Normal [facility] LIPASEon 02-12-2025 Lipase [Catalytic activity/Vol] 26 U/L Normal 17-40 [facility] Comment on above: Performed By: #### C BCA, 3040-3, 49924-0, 02769-4, CMP, 78702- 9, PINR, 13137-1 ####[facility] ([id number])[address] [place] [address] 90138 Lactate (P obed) [Moles/Vol]o n 02-12-2025 LACTATE W/REFLEX 0.9 mmol/L Normal 0.4-2.[address] [facility] Comment on above: Result Comment: Resu lt did not trigger repeat Lactate,re-order if needed. Performed By: #### 3 2133-1 ####[facility] ([id number])[address] [place] [address] 35238 MAGNESIUMon 02-12-2025 Magnesium [Mass/Vol] 1.9 mg/dL Normal 1.8-2.6 [facility] Comment on above: Performed By: #### C BCA, 3040-3, 79761-3, 76143-3, CMP, 43154- 9, PINR, 68065-9 ####[facility] ([id number])[address] [place] [address] 05566 PROTIME AND INRon 02-12-2025 INR Coag (PPP) [Relative time] 1.0 {INR} Normal 0.9-1.2 [facility] Comment on above: Performed By: #### C BCA, 3040-3, 83021-6, 97960-3, CMP, 21688- 9, PINR, 41895-0 ####[facility] ([id number])[address] [place] [address] 43404 PT Coag (PPP) [Time] 11.7 s Normal 9.8-13.2 [facility] Comment on above: Result Comment: NEW REFERENCE RANGE Performed By: #### C BCA, 3040-3, 86036-7, 99873-2, CMP, 12775-3, PINR, 45783-8 ####[facility] ([id number])[address] [place] [address] 09355 Procalcitonin IA [Mass/Vol]o n 02-12-2025 PROCALCITONIN 0.14 ng/mL High <0.05 [facility] Comment on above: Result Comment: NOTE <0.50 ng/mL - Low risk of severe sepsis and/or septic shock.<2.00 ng/mL - Recommend retesting within 6-24 hours.>2.00 ng/mL - High risk of sepsis and/or septic shock. Performed By: #### C BCA, 3040-3, 83552-6, 20911-3, CMP, 13519-0, PINR, 58312-3 ####[facility] ([id number])[address] [place] [address] 94834 SARS/FLU A+B/RSV by NAAT/Mol ecularon 02-12-2025 SARS/FLU A+B/RSV by NAAT/Molecular Normal [facility] Comment on above: Performed By: #### C OVFLR ####[facility] ([id number])[address] [place] [address] 09067 Troponin I.cardiac High sens itivity method [Mass/Vol]on 02-12-2025 1 HOUR TROP I, HIGH SENSITIVITY 12 ng/L Normal <16 [facility] Comment on above: Performed By: #### 8 9579-7 ####[facility] ([id number])[address] [place] [address] 94216 TROPONIN I, HIGH SENSITIVITY 13 ng/L Normal <16 [facility] Comment on above: Performed By: #### C BCA, 3040-3, 59725-5, 98377-6, CMP, 30230- 9, PINR, 38136-6 ####[facility] ([id number])[address] [place] [address] 03764 URINALYSISon 02-12-2025 Bilirubin Ql (U) Negative Normal NEG [facility] Comment on above: Performed By: #### U A ####[facility] ([id number])[address] [place] [address], [place] [address] BLOOD/HGB Trace Abnormal NEG [facility] Comment on above: Performed By: #### U A ####[facility] ([id number])[address] [place] [address], [place] [address] Color (U) YELLOW Normal YELLOW [facility] Comment on above: Performed By: #### U A ####[facility] ([id number])[address] [place] [address], [place] [address] Glucose Ql (U) Negative Normal NEG [facility] Comment on above: Performed By: #### U A ####[facility] ([id number])[address] [place] [address], [place] [address] Ketones Ql (U) Trace Abnormal NEG [facility] Comment on above: Performed By: #### U A ####[facility] ([id number])[address] [place] [address], [place] [address] Leukocyte esterase Test strip Ql (U) SMALL Abnormal NEG [facility] Comment on above: Performed By: #### U A ####[facility] ([id number])[address] [place] [address], [place] [address] Nitrite Ql (U) Positive Abnormal NEG [facility] Comment on above: Performed By: #### U A ####[facility] ([id number])[address] [place] [address], [place] [address] pH (U) 6.5 [pH] Normal 5.0-8.5 [facility] Comment on above: Performed By: #### U A ####[facility] ([id number])[address] [place] [address], [place] [address] Protein Ql (U) 30 mg/dL Abnormal NEG [facility] Comment on above: Performed By: #### U A ####[facility] ([id number])[address] [place] [address] [place] [address] R.B.CELLS 14 /hpf High 0-5 [facility] Comment on above: Performed By: #### U A ####[facility] ([id number])[address] [place] [address] 80285 Specific gravity (U) [Rel density] 1.020 Normal 1.003-1.03 5 [facility] Comment on above: Performed By: #### U A ####[facility] ([id number])[address] [place] [address] 36215 SQUAMOUS EPITHELIUM 1 /hpf Normal 0-5 [facility] Comment on above: Performed By: #### U A ####[facility] ([id number])[address] [place] [address] 17145 TRANSITIONAL EPITH 1 /hpf High 0 [facility] Comment on above: Performed By: #### U A ####[facility] ([id number])[address] [place] [address] 26846 TURBIDITY HAZY Abnormal CLEAR [facility] Comment on above: Performed By: #### U A ####[facility] ([id number])[address] [place] [address] 68539 Urobilinogen Qn (U) 0.2 {Artie'U}/dL Normal <1.1 [facility] Comment on above: Performed By: #### U A ####[facility] ([id number])[address] [place] [address] 06378 W.B.CELLS >100 High 0-5 [facility] Comment on above: Performed By: #### U A ####[facility] ([id number])[address] [place] [address] 27644 WBC CLUMPS FEW Abnormal NONE [facility] Comment on above: Performed By: #### U A ####[facility] ([id number])[address] [place] [address] 32538 URINE CULTUREon 02-12-2025 Bacteria identified Cx Nom (U) Susceptible [facility] Comment on above: Performed By: #### 6 30-4 ####[facility] ([id number])[address] [place] [address], [address], [place] [address] URN MACROSCOPIC NURon 2024 BILIRUBIN MARYJO Negative Normal NEG [facility] Comment on above: Performed By: #### N UM ####[facility] ([id number])[address] [place] [address] 37690 BLOOD/HGB MARYJO Trace Abnormal NEG [facility] Comment on above: Performed By: #### N UM ####[facility] ([id number])[address] [place] [address] 80659 GLUCOSE MARYJO 100 mg/dL Abnormal NEG [facility] Comment on above: Performed By: #### N UM ####[facility] ([id number])[address] [place] [address] 20052 KETONES MARYJO 15 mg/dL Abnormal NEG [facility] Comment on above: Performed By: #### N UM ####[facility] ([id number])[address] [place] [address] 52994 LEUKOCYTE ESTERASE MARYJO Small Abnormal NEG [facility] Comment on above: Performed By: #### N UM ####[facility] ([id number])[address] [place] [address] 45499 NITRITE MARYJO Positive Abnormal NEG [facility] Comment on above: Performed By: #### N UM ####[facility] ([id number])[address] [place] [address] 61518 PH MARYJO 6.5 Normal 5.0-8.5 [facility] Comment on above: Performed By: #### N UM ####[facility] ([id number])[address] [place] [address] 37042 PROTEIN MARYJO 100 mg/dL Abnormal NEG [facility] Comment on above: Performed By: #### N UM ####[facility] ([id number])[address] [place] [address] 65639 SPECIFIC GRAVITY MARYJO 1.020 Normal 1.003-1.03 5 [facility] Comment on above: Performed By: #### N UM ####[facility] ([id number])[address] [place] [address] 54601 UROBILINOGEN MARYJO 0.2 eu/dL Normal <1.[address] [facility] Comment on above: Performed By: #### N UM ####[facility] ([id number])[address] [place] [address] 57359 XR CHEST 1 VWon 02-12-2025 XR CHEST 1 VW Normal [facility] aPTT Coag (PPP) [Time]on aPTT Coag (Bld) [Time] 28 s Normal 26-37 [facility] Comment on above: Result Comment: NEW REFERENCE RANGE Performed By: #### C BCA, 3040-3, 53266-9, 91905-4, CMP, 11930-1, PINR, 35412-9 ####[facility] ([id number])[address] [place] [address] 95130 MICROALBUMIN - ALBUMIN:CREAT ININE URINE RATIOon 02-03-2025 ALB/CREAT RATIO 16.2 mg/g creat Normal 0.0-30.0 [facility] Comment on above: Performed By: #### M ALBU ####[facility] ([id number])[address] [place] [address], [address] [place] [address]#### UA ####[facility] ([id number])[address] [place] [address] 25862 Albumin DL <= 20 mg/L (U) [Mass/Vol] 1.3 mg/dL Normal 0.0-1.9 [facility] Comment on above: Performed By: #### M ALBU ####[facility] ([id number])[address] [facility], [address] [place] [address]#### UA ####[facility] ([id number])[address] [place] [address] 72796 URINE CREAT 80.04 mg/dL Normal [facility] Comment on above: Performed By: #### M ALBU ####[facility] ([id number])[facility], [address] [place] [id number]#### UA ####[facility] ([id number])[address] [place] [address] 75177 URINALYSISon 02-03-2025 Bilirubin Ql (U) Negative Normal NEG [facility] Comment on above: Performed By: #### M ALBU ####[facility] ([id number])0 [facility], [address] [place] [address] 0[address]#### UA ####[facility] ([id number])[address] [place] [address] 18791 BLOOD/HGB Trace Abnormal NEG [facility] Comment on above: Performed By: #### M ALBU ####[facility] ([id number])[address] [facility], [address] [place] [address] 46928#### UA ####[facility] ([id number])[address] [place] [address] 34575 Color (U) YELLOW Normal YELLOW [facility] Comment on above: Performed By: #### M ALBU ####[facility] ([id number])[address] [address] [place] [address] 93881#### UA ####[facility] ([id number])[address] [place] [address] 94907 Glucose Ql (U) 250 mg/dL Abnormal NEG [facility] Comment on above: Performed By: #### M ALBU ####[facility] ([id number])[address] [address]#### UA ####[facility] ([id number])[address] [place] [address] 57693 Ketones Ql (U) Negative Normal NEG [facility] Comment on above: Performed By: #### M ALBU ####[facility] ([id number])[address] [address]#### UA ####[facility] ([id number])[address] [place] [address] 27480 Leukocyte esterase Test strip Ql (U) SMALL Abnormal NEG [facility] Comment on above: Performed By: #### M ALBU ####[facility] ([id number])[address] [address]#### UA ####[facility] ([id number])[address] [place] [address] 54786 Nitrite Ql (U) Positive Abnormal NEG [facility] Comment on above: Performed By: #### M ALBU ####[facility] ([id number])[address] [address]#### UA ####[facility] ([id number])[address] [place] [address] 30653 pH (U) 6.0 [pH] Normal 5.0-8.5 [facility] Comment on above: Performed By: #### M ALBU ####[facility] ([id number])2130 [facility], [address] [place] [address] 81862#### UA ####[facility] ([id number])[address] [place] [address] 92848 Protein Ql (U) Negative Normal NEG [facility] Comment on above: Performed By: #### M ALBU ####[facility] ([id number])0 [facility], [address] [place] [address] 43833#### UA ####[facility] ([id number])[address] [place] [address] 59011 R.B.CELLS 2 /hpf Normal 0-5 [facility] Comment on above: Performed By: #### M ALBU ####[facility] ([id number])[address] [address]#### UA ####[facility] ([id number])[address] [place] [address] 78467 Specific gravity (U) [Rel density] 1.015 Normal 1.003-1.[address] [place] [address] Comment on above: Performed By: #### M ALBU ####[facility] ([id number])0 [facility] [address] [place] [address] 26938#### UA ####[facility] ([id number])[address] [place] [address] 72096 SQUAMOUS EPITHELIUM 3 /hpf Normal 0-5 [facility] Comment on above: Performed By: #### M ALBU ####[facility] ([id number])2130 [facility] [address] [place] [address] 10517#### UA ####[facility] ([id number])[address] [place] [address] 86192 TURBIDITY HAZY Abnormal CLEAR [facility] Comment on above: Performed By: #### M ALBU ####[facility] ([id number])[address] [place] [address] 61180#### UA ####[facility] ([id number])[address] [place] [address] 00123 Urobilinogen Qn (U) 0.2 {Artie'U}/dL Normal <1.1 [facility] Comment on above: Performed By: #### M ALBU ####[facility] ([id number])[address] [place] [address] 38948#### UA ####[facility] ([id number])[address] [place] [address] 01029 W.B.CELLS >100 High 0-5 [facility] Comment on above: Performed By: #### M ALBU ####[facility] ([id number])[address] [place] [address] 43130#### UA ####[facility] ([id number])[address] [place] [address] 56622 WBC CLUMPS FEW Abnormal NONE [facility] Comment on above: Performed By: #### M ALBU ####[facility] ([id number])[address] [place] [address] 34898#### UA ####[facility] ([id number])[address] [place] [address] 69669 BASIC METABOLIC PANLon 02-02 Anion gap [Moles/Vol] 12 mmol/L Normal 5-15 [facility] Comment on above: Performed By: #### C BCA, 2777-1, 19957-0, BMP, 17830-7, 2730-8 ####[facility] ([id number])[address] [address] Calcium [Mass/Vol] 9.0 mg/dL Normal 8.5-10.5 [facility] Comment on above: Performed By: #### C BCA, 2777-1, 68977-6, BMP, 85075-2, 2730-8 ####[facility] ([id number])[address] [address] Chloride [Moles/Vol] 95 mmol/L Low 98-109 [facility] Comment on above: Performed By: #### C BCA, 2777-1, 44789-4, BMP, 95091-8, 2731-06 ####[facility] ([id number])[address] [address] CO2 [Moles/Vol] 30 mmol/L Normal 22-32 [facility] Comment on above: Performed By: #### C BCA, 2777-1, 12403-0, BMP, 19726-4, 2730-8 ####[facility] ([id number])[address] [address] Creatinine [Mass/Vol] 2.12 mg/dL High 0.40-1.00 [facility] Comment on above: Result Comment: METH OD TRACEABLE TO IDMS STANDARD Performed By: #### C BCA, 2777-1, 61266-8, BMP, 39348-1, 2730-8 ####[facility] ([id number])[address] [address] GFR/1.73 sq M.predicted among non-blacks MDRD (S/P/Bld) [Vol rate/Area] 23 mL/min/{1.73_m2} Low >59 [facility] Comment on above: Result Comment: Repo rted eGFR is based on theCKD-EPI 2020 equation that doesnot use a race coefficient. Performed By: #### C BCA, 2777-1, 94539-9, BMP, 59692-0, 2730-8 ####[facility] ([id number])[address], [address] [place] [address] 25559 Glucose [Mass/Vol] 268 mg/dL High 65-99 [facility] Comment on above: Performed By: #### C BCA, 2777-1, 34494-3, BMP, 37997-0, 2730- ####[facility] ([id number])[address], [address] [place] [address] 62007 Potassium [Moles/Vol] 5.1 mmol/L High 3.5-5.0 [facility] Comment on above: Performed By: #### Renita BCA, 2777-1, 48361-4, BMP, 58153-4, 2730- ####[facility] ([id number])[address] [address] [place] [address] 17585 Sodium [Moles/Vol] 137 mmol/L Normal 134-146 [facility] Comment on above: Performed By: #### Renita BCA, 2777-1, 20750-3, BMP, 74313-8, 2731-06 ####[facility] ([id number])[address] [address] [place] [address] 65617 Urea nitrogen [Mass/Vol] 40 mg/dL High 5-27 [facility] Comment on above: Performed By: #### Renita BCA, 2777-1, 66939-2, BMP, 48915-5, 2730- ####[facility] ([id number])[address] [address] CBC AND AUTO DIFFon 02-03-20 25 ABSOLUTE BASOPHIL 0.0 X10E9/L Normal 0.0-0.2 [facility] Comment on above: Performed By: #### Renita BCA, 2777-1, 70001-5, BMP, , 2731-06 ####[facility] ([id number])[address], [address], [place] [address] ABSOLUTE NEUTROPHIL 2.9 X10E9/L Normal 1.5-6.6 [facility] Comment on above: Performed By: #### C BCA, 2777-1, 66074-8, BMP, , 2731-06 ####[facility] ([id number])[address], [address], [place] [address] Basophils/100 WBC (Bld) 0.5 % Normal [facility] Comment on above: Performed By: #### C BCA, 2777-1, 12613-3, BMP, , 2731-06 ####[facility] ([id number])[address] [address] [place] [address] 38200 Eosinophils (Bld) [#/Vol] 0.3 10*3/uL Normal 0.0-0.4 [facility] Comment on above: Performed By: #### C BCA, 2777-1, 95150-8, BMP, , 2731-06 ####[facility] ([id number])[address] [address] [place] [address] 36396 Eosinophils/100 WBC (Bld) 5.4 % Normal [facility] Comment on above: Performed By: #### Renita BCA, 2777-1, 26095-0, BMP, , 2731-06 ####[facility] ([id number])[address], [address], [place] [address] Erythrocyte distribution width (RBC) [Ratio] 16.4 % High 11.5-15.0 [facility] Comment on above: Performed By: #### Renita BCA, 2777-1, 53197-6, BMP, , 2731-06 ####[facility] ([id number])[address], [address] [place] [address] 32333 Hematocrit (Bld) [Volume fraction] 29.2 % Low 35-47 [facility] Comment on above: Performed By: #### Renita HENSON, 2777-1, 31806-8, BMP, 43467-9, 2731-06 ####[facility] ([id number])[address] [address] Hemoglobin (Bld) [Mass/Vol] 9.5 g/dL Low 11.7-15.5 [facility] Comment on above: Performed By: #### Renita HENSON, 2777-1, 78465-3, BMP, , 2731-06 ####[facility] ([id number])[address] [address] Lymphocytes (Bld) [#/Vol] 1.8 10*3/uL Normal 1.0-3.5 [facility] Comment on above: Performed By: #### Renita HENSON, 2777-1, 02652-3, BMP, , 2731-06 ####[facility] ([id number])[address] [address] Lymphocytes/100 WBC (Bld) 31.9 % Normal [facility] Comment on above: Performed By: #### Renita HENSON, 2777-1, 95036-4, BMP, , 2731-06 ####[facility] ([id number])[address] [address] [place] [address] 93460 MCH (RBC) [Entitic mass] 27.6 pg Normal 27-34 [facility] Comment on above: Performed By: #### Renita HENSON, 2777-1, 93179-5, BMP, , 2731-06 ####[facility] ([id number])[address] [address] MCHC (RBC) [Mass/Vol] 32.7 g/dL Normal 32-36 [facility] Comment on above: Performed By: #### Renita HENSON, 2777-1, 56130-9, BMP, 06006-5, 2731-06 ####[facility] ([id number])[address], [address], [place] [address] MCV (RBC) [Entitic vol] 84 fL Normal 80-100 [facility] Comment on above: Performed By: #### Renita HENSON, 2777-1, 60619-6, BMP, 85316-9, 2731-06 ####[facility] ([id number])[address], [address] [place] [address] 02046 Monocytes (Bld) [#/Vol] 0.6 10*3/uL Normal 0-0.9 [facility] Comment on above: Performed By: #### Renita HENSON, 2777-1, 37304-5, BMP, , 2731-06 ####[facility] ([id number])[address], [address] [place] [address] 38866 Monocytes/100 WBC (Bld) 10.2 % Normal [facility] Comment on above: Performed By: #### Renita HENSON, 2777-1, 93806-5, BMP, , 2731-06 ####[facility] ([id number])[address] [address] [place] [address] 92778 Neutrophils/100 WBC (Bld) 52.0 % Normal [facility] Comment on above: Performed By: #### Renita HENSON, 2777-1, 87589-1, BMP, 36671-3, 2731-06 ####[facility] ([id number])[address], [address] [place] [address] 41052 Platelet mean volume (Bld) [Entitic vol] 8.0 fL Normal 7-12 [facility] Comment on above: Performed By: #### Renita HENSON, 2777-1, 30535-7, [facility], , 2731-06 ####[facility] ([id number])[address] [address] [place] [address] 29915 Platelets (Bld) [#/Vol] 338 10*3/uL Normal 150-450 [facility] Comment on above: Performed By: #### Renita HENSON, 7-1, 18140-0, BMP, , 2731-06 ####[facility] ([id number])[address], [address] [place] [address] 68902 RBC COUNT 3.46 X10E12/L Low 3.80-5.20 [facility] Comment on above: Performed By: #### Renita HENSON, 7-1, 40495-2, BMP, , 2731-06 ####[facility] ([id number])[address] [address] [place] [address] 92716 WBC (Bld) [#/Vol] 5.6 10*3/uL Normal 4.0-11.0 [facility] Comment on above: Performed By: #### Renita HENSON, 7-, 25440-8, BMP, , 2731-06 ####[facility] ([id number])[address] [address] MAGNESIUMon 02-02-2025 Magnesium [Mass/Vol] 2.0 mg/dL Normal 1.8-2.6 [facility] Comment on above: Performed By: #### Renita HENSON, 2777-1, 87768-6, BMP, , 2731-06 ####[facility] ([id number])[address] [address] PHOSPHORUSon 02-02-2025 Phosphate [Mass/Vol] 4.7 mg/dL Normal 2.4-4.9 [facility] Comment on above: Performed By: #### Renita HENSON, 2777-1, 88831-4, [facility], 69216-7, 2730-8 ####[facility] ([id number])[address] [place] [address], [address], [place] [address] Parathyrin.intact [Mass/Vol] on 02-02-2025 PTH INTACT 140 pg/mL High 12-88 [facility] Comment on above: Performed By: #### C NATIVIDAD, 2777-1, 76404-9, [facility], 89527-2, 8 ####[facility] ([id number])[address] [place] [address], [address], [place] [address] Vitamin D+Metabolites [Mass/ Vol]on 02-02-2025 VITAMIN D 25 HYD TOT 48.7 ng/mL Normal 30-100 [facility] Comment on above: Result Comment: Veronica min D status 25 [place] Vitamin D Deficiency <20 ng/mLInsufficiency 20-29 ng/mLSufficiency 30-100 ng/mLToxicity >100 ng/mLNOTE: A pediatric reference range has not beenestablished by the machine ii trimmer of this kit.The [place] [employer] recommendsa Vitamin D level of = or >20ng/mL in infantsand children. Performed By: #### C NATIVIDAD, 2777-1, 16204-1, [facility], 93623-5, 8 ####[facility] ([id number])[address] [place] [address], [address], [place] [address] CANCER ANTIGEN 27.29on 01-22 CANCER ANTGN 27.29 56.4 U/mL High <=39.0 [facility] Comment on above: Result Comment: NOTE INTERPRETIVE INFORMATION: Cancer Antigen 27.29The CA 27.29 assay is intended for use in monitorin) diseaseprogression and/or response to therapy in patients with metastaticdisease, and 2) disease recurrence in patients treated previouslyfor stages II or III breast carcinoma who are clinically free ofthe disease. Serial testing in patients who are clinically free ofdisease should be used in conjunction with other clinical methodsfor early detection of cancer recurrence.Limitations: Patients with confirmed breast carcinoma frequentlyhave CA 27.29 assay values in the same range as healthyindividuals. Elevations may also be observed in patients with nonmalignant disease. Results of this test must always be interpretedin the context of morphologic and other relevant data, and shouldnot be used alone for a diagnosis of malignancy.Methodology: Siemens BrightRoll IM BR 27.29 (BR) chemiluminescentimmunoassay was used. Results obtained with different assaymethods or kits cannot be used interchangeably.Performed By: [facility] [place] [address]Gbeoashrde Director: Brendon Ruiz MD, PhDCLIA Number: [id number] Performed By: #### C FAITH, 6875-9, CBCA ####[facility] ([id number])[address] [place] [address]#### CANTGN ####[facility] ([id number])[address] [place] [address] 20362 CBC AND AUTO DIFFon 01-23-20 25 ABSOLUTE BASOPHIL 0.0 X10E9/L Normal 0.0-0.2 [facility] Comment on above: Performed By: #### Renita CUEVAS, 6875-9, CBCA ####[facility] ([id number])[address] [place] [address]#### CANTGN ####[facility] ([id number])[address] [place] [address] 67259 ABSOLUTE NEUTROPHIL 4.9 X10E9/L Normal 1.5-6.6 [facility] Comment on above: Performed By: #### C FAITH, 6875-9, CBCA ####[facility] ([id number])[address] [address]#### CANTGN ####[facility] ([id number])[address] [place] [address] 47245 Basophils/100 WBC (Bld) 0.6 % Normal [facility] Comment on above: Performed By: #### Renita CUEVAS 6875-9, CBCA ####[facility] ([id number])[address] [address]#### CANTGN ####[facility] ([id number])[address] [place] [address] 00061 Eosinophils (Bld) [#/Vol] 0.2 10*3/uL Normal 0.0-0.4 [facility] Comment on above: Performed By: #### Renita CUEVAS 6875-9, CBCA ####[facility] ([id number])[address] [address]#### CANTGN ####[facility] ([id number])[address] [place] [address] 12537 Eosinophils/100 WBC (Bld) 2.1 % Normal [facility] Comment on above: Performed By: #### Renita CUEVAS 6875-9, CBCA ####[facility] ([id number])[address] [address]#### CANTGN ####[facility] ([id number])[address] [place] [address]26 Erythrocyte distribution width (RBC) [Ratio] 16.2 % High 11.5-15.0 [facility] Comment on above: Performed By: #### Renita CUEVAS 6875-9, CBCA ####[facility] ([id number])[address] [address]#### CANTGN ####[facility] ([id number])[address] [place] [address] 30639 Hematocrit (Bld) [Volume fraction] 29.1 % Low 35-47 [facility] Comment on above: Performed By: #### Renita CUEVAS, 6875-9, CBCA ####[facility] ([id number])[address] [address]#### CANTGN ####[facility] ([id number])[address] [place] [address] 42162 Hemoglobin (Bld) [Mass/Vol] 9.6 g/dL Low 11.7-15.5 [facility] Comment on above: Performed By: #### Renita CUEVAS, 6875-9, CBCA ####[facility] ([id number])[address] [address]#### CANTGN ####[facility] ([id number])[address] [place] [address] 61902 Lymphocytes (Bld) [#/Vol] 1.4 10*3/uL Normal 1.0-3.5 [facility] Comment on above: Performed By: #### Renita CUEVAS, 6875-9, CBCA ####[facility] ([id number])[address] [address]#### CANTGN ####[facility] ([id number])[address] [place] [address] 88339 Lymphocytes/100 WBC (Bld) 19.6 % Normal [facility] Comment on above: Performed By: #### Renita CUEVAS, 6875-9, CBCA ####[facility] ([id number])[address] [address]#### CANTGN ####[facility] ([id number])[address] [place] [address] 09141 MCH (RBC) [Entitic mass] 27.3 pg Normal 27-34 [facility] Comment on above: Performed By: #### Renita CUEVAS, 6875-9, CBCA ####[facility] ([id number])[address] [address]#### CANTGN ####[facility] ([id number])[address] [place] [address]03 MCHC (RBC) [Mass/Vol] 32.9 g/dL Normal 32-36 [facility] Comment on above: Performed By: #### C FAITH, 6875-9, CBCA ####[facility] ([id number])[address] [address]#### CANTGN ####[facility] ([id number])[address] [place] [address] 69880 MCV (RBC) [Entitic vol] 83 fL Normal 80-100 [facility] Comment on above: Performed By: #### Renita CUEVAS, 6875-9, CBCA ####[facility] ([id number])[address] [address]#### CANTGN ####[facility] ([id number])[address] [place] [address] 43881 Monocytes (Bld) [#/Vol] 0.8 10*3/uL Normal 0-0.9 [facility] Comment on above: Performed By: #### Renita CUEVAS, 6875-9, CBCA ####[facility] ([id number])[address] [address]#### CANTGN ####[facility] ([id number])[address] [place] [address] 24878 Monocytes/100 WBC (Bld) 10.5 % Normal [facility] Comment on above: Performed By: #### Renita CUEVAS, 6875-9, CBCA ####[facility] ([id number])[address], [address] [place] [address]#### CANTGN ####[facility] ([id number])[address] [place] [address] 45490 Neutrophils/100 WBC (Bld) 67.2 % Normal [facility] Comment on above: Performed By: #### Renita CUEVAS, 6875-9, CBCA ####[facility] ([id number])[address], [address] [place] [address]#### CANTGN ####[facility] ([id number])[address] [place] [address] 43652 Platelet mean volume (Bld) [Entitic vol] 8.5 fL Normal 7-12 [facility] Comment on above: Performed By: #### Renita CUEVAS, 6875-9, CBCA ####[facility] ([id number])[address] [address] [place] [address]#### CANTGN ####[facility] ([id number])[address] [place] [address]16 Platelets (Bld) [#/Vol] 333 10*3/uL Normal 150-450 [facility] Comment on above: Performed By: #### Renita CUEVAS, 6875-9, CBCA ####[facility] ([id number])[address] [address] [place] [address]#### CANTGN ####[facility] ([id number])[address] [place] [address] 66070 RBC COUNT 3.50 X10E12/L Low 3.80-5.20 [facility] Comment on above: Performed By: #### Renita CUEVAS, 6875-9, CBCA ####[facility] ([id number])[address] [address]#### CANTGN ####[facility] ([id number])[address] [place] [address]1782 WBC (Bld) [#/Vol] 7.3 10*3/uL Normal 4.0-11.0 [facility] Comment on above: Performed By: #### Renita CUEVAS, 6875-9, CBCA ####[facility] ([id number])[address] [place] [address]#### CANTGN ####[facility] ([id number])[address] [place] [address] COMPREHENSIVE METABOLIC PANE [facility] 01-22-2025 Albumin [Mass/Vol] 3.9 g/dL Normal 3.2-5.3 [facility] Comment on above: Performed By: #### Renita CUEVAS 6875-9, CBCA ####[facility] ([id number])[address] [address]#### CANTGN ####[facility] ([id number])[address] [place] [address]4479 ALP [Catalytic activity/Vol] 102 U/L Normal 39-130 [facility] Comment on above: Performed By: #### Renita CUEVAS, 6875-9, CBCA ####[facility] ([id number])[address] [place] [address]#### CANTGN ####[facility] ([id number])[address] [place] [address] 28419 ALT [Catalytic activity/Vol] 16 U/L Normal 0-31 [facility] Comment on above: Performed By: #### Renita CUEVAS 6875-9, CBCA ####[facility] ([id number])[address] [address]#### CANTGN ####[facility] ([id number])[address] [place] [address]444 Anion gap [Moles/Vol] 11 mmol/L Normal 5-15 [facility] Comment on above: Performed By: #### C FAITH, 6875-9, CBCA ####[facility] ([id number])[address] [facility] [address] [place] [address]#### CANTGN ####[facility] ([id number])[address] [place] [address] 10034 AST [Catalytic activity/Vol] 18 U/L Normal 0-41 [facility] Comment on above: Performed By: #### C FAITH, 6875-9, CBCA ####[facility] ([id number])0 [facility] [address] [place] [address]#### CANTGN ####[facility] ([id number])[address] [place] [address] 75403 Bilirubin [Mass/Vol] 0.5 mg/dL Normal 0.3-1.2 [facility] Comment on above: Performed By: #### Renita CUEVAS, 6875-9, CBCA ####[facility] ([id number])[address] [facility], [address] [place] [address]#### CANTGN ####[facility] ([id number])[address] [place] [address] 47311 Calcium [Mass/Vol] 9.6 mg/dL Normal 8.5-10.5 [facility] Comment on above: Performed By: #### Renita CUEVAS 6875-9, CBCA ####[facility] ([id number])[address] [facility], [address], [place] [address]#### CANTGN ####[facility] ([id number])[address] [place] [address] 95633 Chloride [Moles/Vol] 96 mmol/L Low 98-109 [facility] Comment on above: Performed By: #### Renita CUEVAS 6875-9, CBCA ####[facility] ([id number])[address] [address]#### CANTGN ####[facility] ([id number])[address] [place] [address] 07990 CO2 [Moles/Vol] 27 mmol/L Normal 22-32 [facility] Comment on above: Performed By: #### Renita CUEVAS 6875-9, CBCA ####[facility] ([id number])[address] [address]#### CANTGN ####[facility] ([id number])[address] [place] [address] 28620 Creatinine [Mass/Vol] 1.75 mg/dL High 0.40-1.00 [facility] Comment on above: Result Comment: METH OD TRACEABLE TO IDMS STANDARD Performed By: #### Renita CUEVAS 6875-9, CBCA ####[facility] ([id number])[address] [address]#### CANTGN ####[facility] ([id number])[address] [place] [address] 69006 GFR/1.73 sq M.predicted among non-blacks MDRD (S/P/Bld) [Vol rate/Area] 29 mL/min/{1.73_m2} Low >59 [facility] Comment on above: Result Comment: Repo rted eGFR is based on theCKD-EPI 2020 equation that doesnot use a race coefficient. Performed By: #### Renita CUEVAS 6875-9, CBCA ####[facility] ([id number])[address] [facility], [address] [place] [address]#### CANTGN ####[facility] ([id number])[address] [place] [address] 56633 Glucose [Mass/Vol] 291 mg/dL High 65-99 [facility] Comment on above: Performed By: #### Renita CUEVAS, 6875-9, CBCA ####[facility] ([id number])[address], [address] [place] [address]#### CANTGN ####[facility] ([id number])[address] [place] [address] 97206 Potassium [Moles/Vol] 5.1 mmol/L High 3.5-5.0 [facility] Comment on above: Performed By: #### Renita CUEVAS, 6875-9, CBCA ####[facility] ([id number])[address] [address] [place] [address]#### CANTGN ####[facility] ([id number])[address] [place] [address] 12944 Protein [Mass/Vol] 7.7 g/dL Normal 6.0-8.0 [facility] Comment on above: Performed By: #### Renita CUEVAS, 6875-9, CBCA ####[facility] ([id number])[address] [address] [place] [address]#### CANTGN ####[facility] ([id number])[address] [place] [address] 69047 Sodium [Moles/Vol] 134 mmol/L Normal 134-146 [facility] Comment on above: Performed By: #### Renita CUEVAS, 6875-9, CBCA ####[facility] ([id number])0 [facility] [address] [place] [address]#### CANTGN ####[facility] ([id number])[address] [place] [address] 55383 Urea nitrogen [Mass/Vol] 31 mg/dL High 5-27 [facility] Comment on above: Performed By: #### Renita CUEVAS, 6875-9, CBCA ####[facility] ([id number])[address] [facility], [address] [place] [address]#### CANTGN ####[facility] ([id number])[address] [place] [address] 29506 Cancer Ag 15-3 Qnon 01-23-20 25 CA 15 3 13.6 U/mL Normal 0.0-31.3 [facility] Comment on above: Result Comment: The method used for this test is [employer] DXI chemiluminescent immunoassay.Values obtained by different assay methodscannot be used interchangeably. Performed By: #### Renita CUEVAS, 6875-9, CBCA ####[facility] ([id number])[address] [facility], [address] [place] [address]#### CANTGN ####[facility] ([id number])[address] [place] [address] 59590 CBC AND AUTO DIFFon 01-10-20 25 ABSOLUTE BASOPHIL 0.0 X10E9/L Normal 0.0-0.2 [facility] Comment on above: Performed By: #### Renita HENSON, 3040-3, CMP ####[facility] ([id number])[address] [place] [address] 24372 ABSOLUTE NEUTROPHIL 5.7 X10E9/L Normal 1.5-6.6 [facility] Comment on above: Performed By: #### Renita HENSON, 3040-3, CMP ####[facility] ([id number])[address] [place] [address] 82674 Basophils/100 WBC (Bld) 0.4 % Normal [facility] Comment on above: Performed By: #### C BCA, 3040-01, CMP ####[facility] ([id number])[address] [place] [address] 98019 Eosinophils (Bld) [#/Vol] 0.0 10*3/uL Normal 0.0-0.4 [facility] Comment on above: Performed By: #### Renita HENSON, 3040-01, CMP ####[facility] ([id number])[address] [place] [address] 90401 Eosinophils/100 WBC (Bld) 0.4 % Normal [facility] Comment on above: Performed By: #### Renita HENSON, 3040-01, CMP ####[facility] ([id number])[address] [place] [address] 59736 Erythrocyte distribution width (RBC) [Ratio] 16.0 % High 11.5-15.0 [facility] Comment on above: Performed By: #### Renita HENSON, 3040-01, CMP ####[facility] ([id number])[address] [place] [address] 70667 Hematocrit (Bld) [Volume fraction] 33.3 % Low 35-47 [facility] Comment on above: Performed By: #### Renita HENSON, 3040-01, CMP ####[facility] ([id number])[address] [place] [address] 22812 Hemoglobin (Bld) [Mass/Vol] 11.0 g/dL Low 11.7-15.5 [facility] Comment on above: Performed By: #### Renita HENSON, 3040-01, CMP ####[facility] ([id number])[address] [place] [address] 27661 Lymphocytes (Bld) [#/Vol] 1.2 10*3/uL Normal 1.0-3.5 [facility] Comment on above: Performed By: #### Renita HENSON, 3040-01, CMP ####[facility] ([id number])[address] [place] [address] 70650 Lymphocytes/100 WBC (Bld) 16.3 % Normal [facility] Comment on above: Performed By: #### Renita HENSON, 3040-01, CMP ####[facility] ([id number])[address] [place] [address] 68900 MCH (RBC) [Entitic mass] 27.5 pg Normal 27-34 [facility] Comment on above: Performed By: #### Renita HENSON, 3040-01, CMP ####[facility] ([id number])[address] [place] [address] 85094 MCHC (RBC) [Mass/Vol] 33.0 g/dL Normal 32-36 [facility] Comment on above: Performed By: #### Renita HENSON, 3040-01, CMP ####[facility] ([id number])[address] [place] [address] 78327 MCV (RBC) [Entitic vol] 83 fL Normal 80-100 [facility] Comment on above: Performed By: #### Renita HENSON, 3040-01, CMP ####[facility] ([id number])[address] [place] [address] 26755 Monocytes (Bld) [#/Vol] 0.5 10*3/uL Normal 0-0.9 [facility] Comment on above: Performed By: #### Renita HENSON, 3040-01, CMP ####[facility] ([id number])[address] [place] [address] 45652 Monocytes/100 WBC (Bld) 6.2 % Normal [facility] Comment on above: Performed By: #### Renita HENSON, 3040-01, CMP ####[facility] ([id number])[address] [place] [address] 05876 Neutrophils/100 WBC (Bld) 76.7 % Normal [facility] Comment on above: Performed By: #### Renita HENSON, 3, CMP ####[facility] ([id number])[address] [place] [address] 60656 Platelet mean volume (Bld) [Entitic vol] 7.6 fL Normal 7-12 [facility] Comment on above: Performed By: #### Renita HENSON, 3, CMP ####[facility] ([id number])[address] [place] [address] 21458 Platelets (Bld) [#/Vol] 309 10*3/uL Normal 150-450 [facility] Comment on above: Performed By: #### Renita HENSON, 3, CMP ####[facility] ([id number])[address] [place] [address] 60899 RBC COUNT 4.00 X10E12/L Normal 3.80-5.20 [facility] Comment on above: Performed By: #### Renita HENSON, 3, CMP ####[facility] ([id number])[address] [place] [address] 70775 WBC (Bld) [#/Vol] 7.5 10*3/uL Normal 4.0-11.0 [facility] Comment on above: Performed By: #### Renita HENSON, 3, CMP ####[facility] ([id number])[address] [place] [address] 82210 COMPREHENSIVE METABOLIC PANE [facility] 01-10-2025 Albumin [Mass/Vol] 3.9 g/dL Normal 3.2-5.3 [facility] Comment on above: Performed By: #### Renita HENSON, 3039-3, CMP ####[facility] ([id number])[address] [place] [address] 23273 ALP [Catalytic activity/Vol] 110 U/L Normal 39-130 [facility] Comment on above: Performed By: #### C NATIVIDAD, 3039-3, CMP ####[facility] ([id number])[address] [place] [address] 00887 ALT [Catalytic activity/Vol] 21 U/L Normal 0-31 [facility] Comment on above: Performed By: #### Renita HENSON, 3039-3, CMP ####[facility] ([id number])[address] [place] [address] 64321 Anion gap [Moles/Vol] 12 mmol/L Normal 5-15 [facility] Comment on above: Performed By: #### Renita HENSON, 3040-01, CMP ####[facility] ([id number])[address] [place] [address] 51858 AST [Catalytic activity/Vol] 32 U/L Normal 0-41 [facility] Comment on above: Performed By: #### Renita HENSON, 3, CMP ####[facility] ([id number])[address] [place] [address] [place] [address] Bilirubin [Mass/Vol] 0.6 mg/dL Normal 0.3-1.2 [facility] Comment on above: Performed By: #### Renita HENSON, 3, CMP ####[facility] ([id number])[address] [place] [address] 88972 Calcium [Mass/Vol] 9.4 mg/dL Normal 8.5-10.5 [facility] Comment on above: Performed By: #### Renita BCA, 3039-3, CMP ####[facility] ([id number])[address] [place] [address] 61480 Chloride [Moles/Vol] 98 mmol/L Normal 98-109 [facility] Comment on above: Performed By: #### Renita BCA, 3039-3, CMP ####[facility] ([id number])[address] [place] [address] [place] [address] CO2 [Moles/Vol] 25 mmol/L Normal 22-32 [facility] Comment on above: Performed By: #### C NATIVIDAD, 3040-01, CMP ####[facility] ([id number])[address] [place] [address] 64834 Creatinine [Mass/Vol] 1.32 mg/dL High 0.40-1.00 [facility] Comment on above: Result Comment: METH OD TRACEABLE TO IDMS STANDARD Performed By: #### C NATIVIDAD, 3040-01, CMP ####[facility] ([id number])[address] [place] [address] 19508 GFR/1.73 sq M.predicted among non-blacks MDRD (S/P/Bld) [Vol rate/Area] 41 mL/min/{1.73_m2} Low >59 [facility] Comment on above: Result Comment: Repo rted eGFR is based on theCKD-EPI 2020 equation that doesnot use a race coefficient. Performed By: #### Renita HENSON, 3040-01, CMP ####[facility] ([id number])[address] [place] [address] 22844 Glucose [Mass/Vol] 130 mg/dL High 65-99 [facility] Comment on above: Performed By: #### Renita HENSON, 3040-01, CMP ####[facility] ([id number])[address] [place] [address] [place] [address] Potassium [Moles/Vol] 4.6 mmol/L Normal 3.5-5.0 [facility] Comment on above: Performed By: #### Renita HENSON, 3040-01, CMP ####[facility] ([id number])[address] [place] [address] [place] [address] Protein [Mass/Vol] 8.4 g/dL High 6.0-8.0 [facility] Comment on above: Performed By: #### C NATIVIDAD, 3040-3, CMP ####[facility] ([id number])[address] [place] [address] 59417 Sodium [Moles/Vol] 135 mmol/L Normal 134-146 [facility] Comment on above: Performed By: #### C NATIVIDAD, 3040-3, CMP ####[facility] ([id number])[address] [place] [address] 37460 Urea nitrogen [Mass/Vol] 26 mg/dL Normal 5-27 [facility] Comment on above: Performed By: #### C NATIVIDAD, 0-3, CMP ####[facility] ([id number])[address] [place] [address] ABDOMEN AND PELVIS W CONT on 01-10-2025 CT ABDOMEN AND PELVIS W CONT Normal [facility] LIPASEon 01-10-2025 Lipase [Catalytic activity/Vol] 27 U/L Normal 17-40 [facility] Comment on above: Performed By: #### C NATIVIDAD, 3040-3, CMP ####[facility] ([id number])[address] [place] [address] 54058 URINE CULTUREon 01-10-2025 Bacteria identified Cx Nom (U) CULTURE RESULTS >100,000 ORGANISMS/ML NORMAL UROGENITAL BAILEY Normal [facility] Comment on above: Performed By: #### 6 30-4 ####[facility] ([id number])[address] [facility] [address] URN MACROSCOPIC NURon 2024 BILIRUBIN MARYJO Negative Normal NEG [facility] Comment on above: Performed By: #### N UM ####[facility] ([id number])[address] [place] [address] 62851 BLOOD/HGB MARYJO MODERATE Abnormal NEG [facility] Comment on above: Performed By: #### N UM ####[facility] ([id number])[address] [place] [address], [place] [address] GLUCOSE MARYJO Negative Normal NEG [facility] Comment on above: Performed By: #### N UM ####[facility] ([id number])[address] [place] [address], [place] [address] KETONES MARYJO Negative Normal NEG [facility] Comment on above: Performed By: #### N UM ####[facility] ([id number])[address] [place] [address], [place] [address] LEUKOCYTE ESTERASE MARYJO Trace Abnormal NEG [facility] Comment on above: Performed By: #### N UM ####[facility] ([id number])[address] [place] [address], [place] [address] NITRITE MARYJO Positive Abnormal NEG [facility] Comment on above: Performed By: #### N UM ####[facility] ([id number])[address] [place] [address], [place] [address] PH MARYJO 5.5 Normal 5.0-8.5 [facility] Comment on above: Performed By: #### N UM ####[facility] ([id number])[address] [place] [address], [place] [address] PROTEIN MARYJO 100 mg/dL Abnormal NEG [facility] Comment on above: Performed By: #### N UM ####[facility] ([id number])[address] [place] [address], [place] [address] SPECIFIC GRAVITY MARYJO >=1.030 Normal 1.003-1.03 5 [facility] Comment on above: Performed By: #### N UM ####[facility] ([id number])[address] [place] [address], [place] [address] UROBILINOGEN MARYJO 0.2 eu/dL Normal <1.[address] [facility] Comment on above: Performed By: #### N UM ####[facility] ([id number])[address] [place] [address] 11932 CBC AND AUTO DIFFon 01-03-20 25 ABSOLUTE BASOPHIL 0.0 X10E9/L Normal 0.0-0.2 [facility] Comment on above: Performed By: #### 2 639-3, 04854-4, 2157-04, CBCA, PINR, CMP ####[facility] ([id number])[address] [place] [address] 84939 ABSOLUTE NEUTROPHIL 5.7 X10E9/L Normal 1.5-6.6 [facility] Comment on above: Performed By: #### 2 639-3, 49072-5, 2157-04, CBCA, PINR, CMP ####[facility] ([id number])[address] [place] [address] 43400 Basophils/100 WBC (Bld) 0.3 % Normal [facility] Comment on above: Performed By: #### 2 639-3, 42078-2, 2157-04, CBCA, PINR, CMP ####[facility] ([id number])[address] [place] [address] 86926 Eosinophils (Bld) [#/Vol] 0.1 10*3/uL Normal 0.0-0.4 [facility] Comment on above: Performed By: #### 2 639-3, 02031-8, 2157-04, CBCA, PINR, CMP ####[facility] ([id number])[address] [place] [address] 63422 Eosinophils/100 WBC (Bld) 0.8 % Normal [facility] Comment on above: Performed By: #### 2 639-3, 74004-3, 2157-04, CBCA, PINR, CMP ####[facility] ([id number])[address] [place] [address] 55199 Erythrocyte distribution width (RBC) [Ratio] 16.0 % High 11.5-15.0 [facility] Comment on above: Performed By: #### 2 639-3, 45684-6, 2157-04, CBCA, PINR, CMP ####[facility] ([id number])[address] [place] [address] 40492 Hematocrit (Bld) [Volume fraction] 33.4 % Low 35-47 [facility] Comment on above: Performed By: #### 2 639-3, 02088-8, 2157-04, CBCA, PINR, CMP ####[facility] ([id number])[address] [place] [address] 81173 Hemoglobin (Bld) [Mass/Vol] 11.0 g/dL Low 11.7-15.5 [facility] Comment on above: Performed By: #### 2 639-3, 71441-2, 2157-04, CBCA, PINR, CMP ####[facility] ([id number])[address] [place] [address] 07015 Lymphocytes (Bld) [#/Vol] 1.2 10*3/uL Normal 1.0-3.5 [facility] Comment on above: Performed By: #### 2 639-3, 56285-5, 2157-04, CBCA, PINR, CMP ####[facility] ([id number])[address] [place] [address] 54658 Lymphocytes/100 WBC (Bld) 15.7 % Normal [facility] Comment on above: Performed By: #### 2 639-3, 77678-0, 2157-04, CBCA, PINR, CMP ####[facility] ([id number])[address] [place] [address] 17697 MCH (RBC) [Entitic mass] 27.4 pg Normal 27-34 [facility] Comment on above: Performed By: #### 2 639-3, 37617-5, 2157-04, CBCA, PINR, CMP ####[facility] ([id number])[address] [place] [address] 51487 MCHC (RBC) [Mass/Vol] 32.8 g/dL Normal 32-36 [facility] Comment on above: Performed By: #### 2 639-3, 24199-4, 2157-04, CBCA, PINR, CMP ####[facility] ([id number])[address] [place] [address] 18844 MCV (RBC) [Entitic vol] 83 fL Normal 80-100 [facility] Comment on above: Performed By: #### 2 639-3, 77042-9, 2157-04, CBCA, PINR, CMP ####[facility] ([id number])[address] [place] [address] 22191 Monocytes (Bld) [#/Vol] 0.7 10*3/uL Normal 0-0.9 [facility] Comment on above: Performed By: #### 2 639-3, 54032-6, 2157-04, CBCA, PINR, CMP ####[facility] ([id number])[address] [place] [address] 28753 Monocytes/100 WBC (Bld) 8.9 % Normal [facility] Comment on above: Performed By: #### 2 639-3, 77778-2, 2157-04, CBCA, PINR, CMP ####[facility] ([id number])[address] [place] [address] 18277 Neutrophils/100 WBC (Bld) 74.3 % Normal [facility] Comment on above: Performed By: #### 2 639-3, 66735-1, 2157-04, CBCA, PINR, CMP ####[facility] ([id number])[address] [place] [address] 12233 Platelet mean volume (Bld) [Entitic vol] 8.1 fL Normal 7-12 [facility] Comment on above: Performed By: #### 2 639-3, 79311-1, 2157-04, CBCA, PINR, CMP ####[facility] ([id number])[address] [place] [address] 88558 Platelets (Bld) [#/Vol] 295 10*3/uL Normal 150-450 [facility] Comment on above: Performed By: #### 2 639-3, 79625-9, 2157-04, CBCA, PINR, CMP ####[facility] ([id number])[address] [place] [address] 42417 RBC COUNT 4.01 X10E12/L Normal 3.80-5.20 [facility] Comment on above: Performed By: #### 2 639-3, 21823-6, 2157-04, CBCA, PINR, CMP ####[facility] ([id number])[address] [place] [address] 73022 WBC (Bld) [#/Vol] 7.7 10*3/uL Normal 4.0-11.0 [facility] Comment on above: Performed By: #### 2 639-3, 39190-0, 2157-04, CBCA, PINR, CMP ####[facility] ([id number])[address] [place] [address] 59399 CK [Catalytic activity/Vol]o n 01-03-2025 CPK 66 U/L Normal 24-170 [facility] Comment on above: Performed By: #### 2 639-3, 06529-2, 2157-04, CBCA, PINR, CMP ####[facility] ([id number])[address] [place] [address] [place] [address] COMPREHENSIVE METABOLIC PANE Dickson 01-03-2025 Albumin [Mass/Vol] 3.8 g/dL Normal 3.2-5.3 [facility] Comment on above: Performed By: #### 2 639-3, 09004-7, 6, CBCA, PINR, CMP ####[facility] ([id number])[address] [place] [address] [place] [address] ALP [Catalytic activity/Vol] 110 U/L Normal 39-130 [facility] Comment on above: Performed By: #### 2 639-3, 99580-8, 6, CBCA, PINR, CMP ####[facility] ([id number])[address] [place] [address] 32211 ALT [Catalytic activity/Vol] 13 U/L Normal 0-31 [facility] Comment on above: Performed By: #### 2 639-3, 20049-6, 2157-04, CBCA, PINR, CMP ####[facility] ([id number])[address] [place] [address] 93677 Anion gap [Moles/Vol] 11 mmol/L Normal 5-15 [facility] Comment on above: Performed By: #### 2 639-3, 82484-8, 6, CBCA, PINR, CMP ####[facility] ([id number])[address] [place] [address] 77307 AST [Catalytic activity/Vol] 24 U/L Normal 0-41 [facility] Comment on above: Performed By: #### 2 639-3, 26051-1, 6, CBCA, PINR, CMP ####[facility] ([id number])[address] [place] [address] 86506 Bilirubin [Mass/Vol] 0.4 mg/dL Normal 0.3-1.2 [facility] Comment on above: Performed By: #### 2 639-3, 40809-1, 2157-04, CBCA, PINR, CMP ####[facility] ([id number])[address] [place] [address] 46813 Calcium [Mass/Vol] 9.3 mg/dL Normal 8.5-10.5 [facility] Comment on above: Performed By: #### 2 639-3, 84889-7, 2157-04, CBCA, PINR, CMP ####[facility] ([id number])[address] [place] [address] 02409 Chloride [Moles/Vol] 101 mmol/L Normal 98-109 [facility] Comment on above: Performed By: #### 2 639-3, 58249-8, 2157-04, CBCA, PINR, CMP ####[facility] ([id number])[address] [place] [address] 04318 CO2 [Moles/Vol] 27 mmol/L Normal 22-32 [facility] Comment on above: Performed By: #### 2 639-3, 00889-3, 2157-04, CBCA, PINR, CMP ####[facility] ([id number])[address] [place] [address] 32156 Creatinine [Mass/Vol] 1.25 mg/dL High 0.40-1.00 [facility] Comment on above: Result Comment: METH OD TRACEABLE TO IDMS STANDARD Performed By: #### 2 639-3, 07941-5, 2157-04, CBCA, PINR, CMP ####[facility] ([id number])[address] [place] [address] 64520 GFR/1.73 sq M.predicted among non-blacks MDRD (S/P/Bld) [Vol rate/Area] 44 mL/min/{1.73_m2} Low >59 [facility] Comment on above: Result Comment: Repo rted eGFR is based on theD-EPI 2020 equation that doesnot use a race coefficient. Performed By: #### 2 639-3, 52659-1, 2157-04, CBCA, PINR, CMP ####[facility] ([id number])[address] [place] [address] 98315 Glucose [Mass/Vol] 48 mg/dL Critically low 65-99 [facility] Comment on above: Performed By: #### 2 639-3, 14646-2, 2157-04, CBCA, PINR, CMP ####[facility] ([id number])[address] [place] [address] 60306 Potassium [Moles/Vol] 3.9 mmol/L Normal 3.5-5.0 [facility] Comment on above: Performed By: #### 2 639-3, 62827-2, 2157-04, CBCA, PINR, CMP ####[facility] ([id number])[address] [place] [address] 86462 Protein [Mass/Vol] 7.9 g/dL Normal 6.0-8.0 [facility] Comment on above: Performed By: #### 2 639-3, 84448-3, 2157-04, CBCA, PINR, CMP ####[facility] ([id number])[address] [place] [address] 26866 Sodium [Moles/Vol] 139 mmol/L Normal 134-146 [facility] Comment on above: Performed By: #### 2 639-3, 57914-7, 2157-04, CBCA, PINR, CMP ####[facility] ([id number])[address] [place] [address] 01713 Urea nitrogen [Mass/Vol] 18 mg/dL Normal 5-27 [facility] Comment on above: Performed By: #### 2 639-3, 98122-9, 2157-04, CBCA, PINR, CMP ####[facility] ([id number])[address] [place] [address] BRAIN WO CONTon CT BRAIN WO CONT Normal [facility] CT CERVICAL SPINE WO CONTon 01-03-2025 CT CERVICAL SPINE WO CONT Normal [facility] Glucose Glucometer (BldC) [M ass/Vol]on 01-03-2025 Glucose [Mass/Vol] 231 mg/dL High 65-99 [facility] Glucose [Mass/Vol] 196 mg/dL High 65-99 [facility] Glucose [Mass/Vol] 66 mg/dL Normal 65-99 [facility] Glucose [Mass/Vol] 72 mg/dL Normal 65-99 [facility] Glucose [Mass/Vol] 86 mg/dL Normal 65-99 [facility] Glucose [Mass/Vol] 49 mg/dL Critically low 65-99 [facility] Myoglobin [Mass/Vol]on 01-03 SERUM MYOGLOBIN 67.6 ng/mL High 14.3-65.8 [facility] Comment on above: Performed By: #### 2 639-3, 03694-6, 2157-04, CBCA, PINR, CMP ####[facility] ([id number])[address] [place] [address] PROTIME AND INRon 01-03-2025 INR Coag (PPP) [Relative time] 1.0 {INR} Normal 0.8-1.1 [facility] Comment on above: Performed By: #### 2 639-3, 38320-5, 7, CBCA, PINR, CMP ####[facility] ([id number])[address] [place] [address] PT Coag (PPP) [Time] 12.1 s Normal 9.8-13.2 [facility] Comment on above: Result Comment: NEW REFERENCE RANGE Performed By: #### 2 639-3, 03091-2, 7-, CBCA, PINR, CMP ####[facility] ([id number])[address] [place] [address] [place] [address] Troponin I.cardiac High sens itivity method [Mass/Vol]on 01-03-2025 1 HOUR TROP I, HIGH SENSITIVITY 15 ng/L Normal <16 [facility] Comment on above: Performed By: #### 8 9579-7 ####[facility] ([id number])[address] [place] [address], [place] [address] TROPONIN I, HIGH SENSITIVITY 11 ng/L Normal <16 [facility] Comment on above: Performed By: #### 2 639-3, 66645-1, 2157-04, CBCA, PINR, CMP ####[facility] ([id number])[address] [place] [address], [place] [address] URN MACROSCOPIC NURon 2024 BILIRUBIN MARYJO Negative Normal NEG [facility] Comment on above: Performed By: #### N UM ####[facility] ([id number])[address] [place] [address], [place] [address] BLOOD/HGB MARYJO Trace Abnormal NEG [facility] Comment on above: Performed By: #### N UM ####[facility] ([id number])[address] [place] [address] [place] [address] GLUCOSE MARYJO 100 mg/dL Abnormal NEG [facility] Comment on above: Performed By: #### N UM ####[facility] ([id number])[address] [place] [address] [place] [address] KETONES MARYJO Negative Normal NEG [facility] Comment on above: Performed By: #### N UM ####[facility] ([id number])[address] [place] [address] LEUKOCYTE ESTERASE MARYJO Small Abnormal NEG [facility] Comment on above: Performed By: #### N UM ####[facility] ([id number])[address] [place] [address] NITRITE MARYJO Negative Normal NEG [facility] Comment on above: Performed By: #### N UM ####[facility] ([id number])[address] [place] [address] PH MARYJO 6.0 Normal 5.0-8.5 [facility] Comment on above: Performed By: #### N UM ####[facility] ([id number])[address] [place] [address] PROTEIN MARYJO 30 mg/dL Abnormal NEG [facility] Comment on above: Performed By: #### N UM ####[facility] ([id number])[address] [place] [address] SPECIFIC GRAVITY MARYJO 1.025 Normal 1.003-1.03 5 [facility] Comment on above: Performed By: #### N UM ####[facility] ([id number])[address] [place] [address] UROBILINOGEN MARYJO 0.2 eu/dL Normal <1.[address] [facility] Comment on above: Performed By: #### N UM ####[facility] ([id number])[address] [place] [address] CBC AND AUTO DIFFon -20-20 25 ABSOLUTE BASOPHIL 0.0 X10E9/L Normal 0.0-0.2 [facility] Comment on above: Performed By: #### C MP, CBCA, HA1C, 26664-5 ####[facility] ([id number])[address], [place] [address] ABSOLUTE NEUTROPHIL 3.3 X10E9/L Normal 1.5-6.6 [facility] Comment on above: Performed By: #### C MP, CBCA, HA1C, 83207-2 ####[facility] ([id number])[address] [address], [place] [address] Basophils/100 WBC (Bld) 0.7 % Normal [facility] Comment on above: Performed By: #### C MP, CBCA, HA1C, 83253-1 ####[facility] ([id number])[address] [address], [place] [address] Eosinophils (Bld) [#/Vol] 0.2 10*3/uL Normal 0.0-0.4 [facility] Comment on above: Performed By: #### C MP, CBCA, HA1C, 39297-2 ####[facility] ([id number])[address] [address], [place] [address] Eosinophils/100 WBC (Bld) 3.9 % Normal [facility] Comment on above: Performed By: #### C MP, CBCA, HA1C, 54071-9 ####[facility] ([id number])[address] [address], [place] [address] Erythrocyte distribution width (RBC) [Ratio] 15.7 % High 11.5-15.0 [facility] Comment on above: Performed By: #### C MP, CBCA, HA1C, 15473-6 ####[facility] ([id number])[address] [address], [place] [address] Hematocrit (Bld) [Volume fraction] 32.2 % Low 35-47 [facility] Comment on above: Performed By: #### C MP, CBCA, HA1C, 92326-6 ####[facility] ([id number])[address] [address] [place] [address] Hemoglobin (Bld) [Mass/Vol] 10.4 g/dL Low 11.7-15.5 [facility] Comment on above: Performed By: #### C FAITH, CBCA, HA1C, 86626-3 ####[facility] ([id number])[address] [address], [place] [address] Lymphocytes (Bld) [#/Vol] 1.5 10*3/uL Normal 1.0-3.5 [facility] Comment on above: Performed By: #### C FAITH, CBCA, HA1C, 71661-2 ####[facility] ([id number])[address] [address], [place] [address] Lymphocytes/100 WBC (Bld) 26.6 % Normal [facility] Comment on above: Performed By: #### C FAITH, CBCA, HA1C, 48557-9 ####[facility] ([id number])[address] [address] [place] [address] MCH (RBC) [Entitic mass] 27.9 pg Normal 27-34 [facility] Comment on above: Performed By: #### C FAITH, CBCA, HA1C, 66235-4 ####[facility] ([id number])[address] [address] [place] [address] MCHC (RBC) [Mass/Vol] 32.2 g/dL Normal 32-36 [facility] Comment on above: Performed By: #### C FAITH, CBCA, HA1C, 16691-1 ####[facility] ([id number])[address] [address] [place] [address] MCV (RBC) [Entitic vol] 86 fL Normal 80-100 [facility] Comment on above: Performed By: #### C MP, CBCA, HA1C, 30045-8 ####[facility] ([id number])[address] [facility] [place] [address] Monocytes (Bld) [#/Vol] 0.5 10*3/uL Normal 0-0.9 [facility] Comment on above: Performed By: #### C MP, CBCA, HA1C, 51431-9 ####[facility] ([id number])[address], [place] [address] Monocytes/100 WBC (Bld) 9.4 % Normal [facility] Comment on above: Performed By: #### C MP, CBCA, HA1C, 96583-4 ####[facility] ([id number])[address], [address], [place] [address] Neutrophils/100 WBC (Bld) 59.4 % Normal [facility] Comment on above: Performed By: #### C MP, CBCA, HA1C, 62270-6 ####[facility] ([id number])[address], [place] [address] Platelet mean volume (Bld) [Entitic vol] 8.9 fL Normal 7-12 [facility] Comment on above: Performed By: #### C MP, CBCA, HA1C, 59770-1 ####[facility] ([id number])[address] [address], [place] [address] Platelets (Bld) [#/Vol] 266 10*3/uL Normal 150-450 [facility] Comment on above: Performed By: #### C MP, CBCA, HA1C, 12394-4 ####[facility] ([id number])[address], [place] [address] RBC COUNT 3.72 X10E12/L Low 3.80-5.20 [facility] Comment on above: Performed By: #### C MP, CBCA, HA1C, 71994-4 ####[facility] ([id number])[address] [address], [place] [address] WBC (Bld) [#/Vol] 5.6 10*3/uL Normal 4.0-11.0 [facility] Comment on above: Performed By: #### C FAITH, CBCA, HA1C, 37698-6 ####[facility] ([id number])[address], [place] [address] COMPREHENSIVE METABOLIC PANE Dickson 12-04-2024 Albumin [Mass/Vol] 3.7 g/dL Normal 3.2-5.3 [facility] Comment on above: Performed By: #### C FAITH, CBCA, HA1C, 66387-3 ####[facility] ([id number])[address], [address], [place] [address] ALP [Catalytic activity/Vol] 84 U/L Normal 39-130 [facility] Comment on above: Performed By: #### C FAITH, CBCA, HA1C, 38689-3 ####[facility] ([id number])[address], [address], [place] [address] ALT [Catalytic activity/Vol] 11 U/L Normal 0-31 [facility] Comment on above: Performed By: #### C FAITH, CBCA, HA1C, 65341-7 ####[facility] ([id number])[address] [address], [place] [address] Anion gap [Moles/Vol] 7 mmol/L Normal 5-15 [facility] Comment on above: Performed By: #### C MP, CBCA, HA1C, 10752-9 ####[facility] ([id number])[address] [address], [place] [address] AST [Catalytic activity/Vol] 25 U/L Normal 0-41 [facility] Comment on above: Performed By: #### C MP, CBCA, HA1C, 50688-1 ####[facility] ([id number])[address], [place] [address] Bilirubin [Mass/Vol] 0.3 mg/dL Normal 0.3-1.2 [facility] Comment on above: Performed By: #### C FAITH, CBCA, HA1C, 21049-2 ####[facility] ([id number])[address] [address], [place] [address] Calcium [Mass/Vol] 9.0 mg/dL Normal 8.5-10.5 [facility] Comment on above: Performed By: #### C FAITH, CBCA, HA1C, 87046-4 ####[facility] ([id number])[address] [address] Chloride [Moles/Vol] 103 mmol/L Normal 98-109 [facility] Comment on above: Performed By: #### C FAITH, CBCA, HA1C, 95826-7 ####[facility] ([id number])[address] [address] [place] [address] CO2 [Moles/Vol] 28 mmol/L Normal 22-32 [facility] Comment on above: Performed By: #### C FAITH, CBCA, HA1C, 89769-6 ####[facility] ([id number])[address] [address] Creatinine [Mass/Vol] 1.40 mg/dL High 0.40-1.00 [facility] Comment on above: Result Comment: METH OD TRACEABLE TO IDMS STANDARD Performed By: #### C FAITH, CBCA, HA1C, 51246-3 ####[facility] ([id number])[address] [address] GFR/1.73 sq M.predicted among non-blacks MDRD (S/P/Bld) [Vol rate/Area] 39 mL/min/{1.73_m2} Low >59 [facility] Comment on above: Result Comment: Repo rted eGFR is based on theCKD-EPI 2020 equation that doesnot use a race coefficient. Performed By: #### C CARMEN CUEVAS, HA1C, 16470-8 ####[facility] ([id number])[address] [address], [place] [address] Glucose [Mass/Vol] 201 mg/dL High 65-99 [facility] Comment on above: Performed By: #### C FAITH CBCDanielle, HA1C, 44585-6 ####[facility] ([id number])[address] [address], [place] [address] Potassium [Moles/Vol] 5.5 mmol/L High 3.5-5.0 [facility] Comment on above: Performed By: #### C FAITH CBCA, HA1C, 79648-6 ####[facility] ([id number])[address] [address], [place] [address] Protein [Mass/Vol] 6.9 g/dL Normal 6.0-8.0 [facility] Comment on above: Performed By: #### C CARMEN CUEVAS, HA1C, 02255-9 ####[facility] ([id number])[address] [address], [place] [address] Sodium [Moles/Vol] 138 mmol/L Normal 134-146 [facility] Comment on above: Performed By: #### C FAITH CBCDanielle, HA1C, 19541-8 ####[facility] ([id number])[address] [address], [place] [address] Urea nitrogen [Mass/Vol] 18 mg/dL Normal 5-27 [facility] Comment on above: Performed By: #### C FAITH CBCA, HA1C, 33352-9 ####[facility] ([id number])[address] [address], [place] [address] HGB A1C (GLYCO-HGB)on 2024 Glucose [Mass/Vol] 217 mg/dL Normal [facility] Comment on above: Performed By: #### C FAITH, CBCA, HA1C, 52546-4 ####[facility] ([id number])[address] [address] HbA1c (Bld) [Mass fraction] 9.2 % High 4.4-5.6 [facility] Comment on above: Result Comment: NOTE ADA Guidelines Result HgbA1c Normal : less than 5.7 % Prediabetes : 5.7 % to 6.4 % Diabetes : > 6.4 %Use with caution in patients with abnormal hemoglobin variants asthe half-life of red blood cells and in vivo glycation rates areaffected. Performed By: #### C FAITH, CBCA, HA1C, 93726-6 ####[facility] ([id number])[address] [address] Lipid 1996 panelon 5 Cholesterol [Mass/Vol] 133 mg/dL Low 150-200 [facility] Comment on above: Performed By: #### C FAITH, INOA, HA1C, 31797-9 ####[facility] ([id number])[address] [address] Cholesterol in HDL [Mass/Vol] 47 mg/dL Normal >39 [facility] Comment on above: Result Comment: HDL <40 mg/dL - High RiskHDL > or = 40mg/dL- DesirableHDL >60 mg/dL - Negative Risk Performed By: #### C FAITH, CBCA, HA1C, 32538-5 ####[facility] ([id number])[address] [address] Cholesterol in LDL [Mass/Vol] 70 mg/dL Normal <130 [facility] Comment on above: Result Comment: LDL <100 mg/dL - DesirableLDL >160 mg/dL - High Risk Performed By: #### C MP, CBCA, HA1C, 30088-6 ####[facility] ([id number])[address] [address] Cholesterol in VLDL [Mass/Vol] 16 mg/dL Normal 0-30 [facility] Comment on above: Performed By: #### C MP, CBCA, HA1C, 91180-1 ####[facility] ([id number])[address] [address] CHOLESTEROL:HDL 2.8 Normal 1.0-5.0 [facility] Comment on above: Performed By: #### C MP, CBCA, HA1C, 03145-1 ####[facility] ([id number])[address] [address] Triglyceride [Mass/Vol] 82 mg/dL Normal 27-150 [facility] Comment on above: Performed By: #### C MP, CBCA, HA1C, 10749-4 ####[facility] ([id number])[address] [address] CBC AND AUTO DIFFon 11-19-19 25 ABSOLUTE BASOPHIL 0.0 X10E9/L Normal 0.0-0.2 [facility] Comment on above: Performed By: #### C MP, 85550-5, CBCA, 91934-9, 22254-2, PINR ####[facility] ([id number])[address] [place] [address] ABSOLUTE NEUTROPHIL 5.1 X10E9/L Normal 1.5-6.6 [facility] Comment on above: Performed By: #### C MP, 99644-6, CBCA, 88807-6, 94326-0, PINR ####[facility] ([id number])[address] [place] [address] Basophils/100 WBC (Bld) 0.4 % Normal [facility] Comment on above: Performed By: #### C MP, 25866-7, CBCA, 01421-9, 07391-8, PINR ####[facility] ([id number])[address] [place] [address] Eosinophils (Bld) [#/Vol] 0.1 10*3/uL Normal 0.0-0.4 [facility] Comment on above: Performed By: #### C MP, 47381-4, CBCA, 20756-7, 82354-7, PINR ####[facility] ([id number])[address] [place] [address] Eosinophils/100 WBC (Bld) 1.7 % Normal [facility] Comment on above: Performed By: #### C MP, 07435-4, CBCA, 20780-9, 89034-4, PINR ####[facility] ([id number])[address] [place] [address] Erythrocyte distribution width (RBC) [Ratio] 15.9 % High 11.5-15.0 [facility] Comment on above: Performed By: #### C MP, 16555-8, CBCA, 21405-6, 34389-7, PINR ####[facility] ([id number])[address] [place] [address] Hematocrit (Bld) [Volume fraction] 34.2 % Low 35-47 [facility] Comment on above: Performed By: #### C MP, 42547-1, CBCA, 21324-2, 31141-3, PINR ####[facility] ([id number])[address] [place] [address] Hemoglobin (Bld) [Mass/Vol] 11.1 g/dL Low 11.7-15.5 [facility] Comment on above: Performed By: #### C FAITH, 82948-1, CBCA, 99513-1, 89486-3, PINR ####[facility] ([id number])[address] [place] [address] Lymphocytes (Bld) [#/Vol] 1.6 10*3/uL Normal 1.0-3.5 [facility] Comment on above: Performed By: #### C FAITH, 03742-2, CBCA, 53953-4, 37132-0, PINR ####[facility] ([id number])[address] [place] [address] Lymphocytes/100 WBC (Bld) 20.5 % Normal [facility] Comment on above: Performed By: #### C FAITH, 85787-8, CBCA, 72102-3, 27132-5, PINR ####[facility] ([id number])[address] [place] [address] MCH (RBC) [Entitic mass] 27.5 pg Normal 27-34 [facility] Comment on above: Performed By: #### C FAITH, 43739-7, CBCA, 40553-9, 02078-8, PINR ####[facility] ([id number])[address] [place] [address] MCHC (RBC) [Mass/Vol] 32.6 g/dL Normal 32-36 [facility] Comment on above: Performed By: #### C FAITH, 71162-7, CBCA, 08521-4, 88633-2, PINR ####[facility] ([id number])[address] [place] [address] MCV (RBC) [Entitic vol] 85 fL Normal 80-100 [facility] Comment on above: Performed By: #### C MP, 72876-1, CBCA, 11608-7, 09134-4, PINR ####[facility] ([id number])[address] [place] [address] Monocytes (Bld) [#/Vol] 0.9 10*3/uL Normal 0-0.9 [facility] Comment on above: Performed By: #### C FAITH, 57785-5, CBCA, 14332-2, 36119-4, PINR ####[facility] ([id number])[address] [place] [address] Monocytes/100 WBC (Bld) 11.4 % Normal [facility] Comment on above: Performed By: #### C FAITH, 28179-1, CBCA, 62232-1, 46644-5, PINR ####[facility] ([id number])[address] [place] [address] Neutrophils/100 WBC (Bld) 66.0 % Normal [facility] Comment on above: Performed By: #### C FAITH, 67220-2, CBCA, 96707-1, 08320-9, PINR ####[facility] ([id number])[address] [place] [address] Platelet mean volume (Bld) [Entitic vol] 8.0 fL Normal 7-12 [facility] Comment on above: Performed By: #### C MP, 11465-6, CBCA, 80982-6, 04209-1, PINR ####[facility] ([id number])[address] [place] [address] Platelets (Bld) [#/Vol] 342 10*3/uL Normal 150-450 [facility] Comment on above: Performed By: #### C MP, 88254-6, CBCA, 71674-8, 82665-7, PINR ####[facility] ([id number])[address] [place] [address] RBC COUNT 4.04 X10E12/L Normal 3.80-5.20 [facility] Comment on above: Performed By: #### C MP, 26770-1, CBCA, 70411-3, 04983-5, PINR ####[facility] ([id number])[address] [place] [address] WBC (Bld) [#/Vol] 7.7 10*3/uL Normal 4.0-11.0 [facility] Comment on above: Performed By: #### C MP, 25367-5, CBCA, 35972-4, 97418-3, PINR ####[facility] ([id number])[address] [place] [address] COMPREHENSIVE METABOLIC PANE [facility] 11-19-2024 Albumin [Mass/Vol] 4.1 g/dL Normal 3.2-5.3 [facility] Comment on above: Performed By: #### C MP, 58966-3, CBCA, 66413-1, 60262-0, PINR ####[facility] ([id number])[address] [place] [address] ALP [Catalytic activity/Vol] 108 U/L Normal 39-130 [facility] Comment on above: Performed By: #### C MP, 39229-9, CBCA, 54269-1, 99015-7, PINR ####[facility] ([id number])[address] [place] [address] ALT [Catalytic activity/Vol] 18 U/L Normal 0-31 [facility] Comment on above: Performed By: #### C MP, 26642-5, CBCA, 75351-7, 02033-5, PINR ####[facility] ([id number])[address] [place] [address], [place] [address] Anion gap [Moles/Vol] 11 mmol/L Normal 5-15 [facility] Comment on above: Performed By: #### C MP, 56071-6, CBCA, 40831-3, 62384-3, PINR ####[facility] ([id number])[address] [place] [address] [place] [address] AST [Catalytic activity/Vol] 24 U/L Normal 0-41 [facility] Comment on above: Performed By: #### C FAITH, 89147-0, CBCA, 57352-4, 31714-3, PINR ####[facility] ([id number])[address] [place] [address] 12547 Bilirubin [Mass/Vol] 0.6 mg/dL Normal 0.3-1.2 [facility] Comment on above: Performed By: #### C FAITH, 65513-2, CBCA, 88286-8, 67808-9, PINR ####[facility] ([id number])[address] [place] [address] Calcium [Mass/Vol] 9.2 mg/dL Normal 8.5-10.5 [facility] Comment on above: Performed By: #### C FAITH, 59511-3, CBCA, 45430-6, 33904-9, PINR ####[facility] ([id number])[address] [place] [address] [place] [address] Chloride [Moles/Vol] 99 mmol/L Normal 98-109 [facility] Comment on above: Performed By: #### C MP, 91781-3, CBCA, 19159-2, 08411-0, PINR ####[facility] ([id number])[address] [place] [address] [place] [address] CO2 [Moles/Vol] 26 mmol/L Normal 22-32 [facility] Comment on above: Performed By: #### C FAITH, 74676-1, CBCA, 38220-7, 15573-7, PINR ####[facility] ([id number])[address] [place] [address] Creatinine [Mass/Vol] 1.67 mg/dL High 0.40-1.00 [facility] Comment on above: Result Comment: METH OD TRACEABLE TO IDMS STANDARD Performed By: #### C MP, 43815-8, CBCA, 38083-1, 83376-3, PINR ####[facility] ([id number])[address] [place] [address] GFR/1.73 sq M.predicted among non-blacks MDRD (S/P/Bld) [Vol rate/Area] 31 mL/min/{1.73_m2} Low >59 [facility] Comment on above: Result Comment: Repo rted eGFR is based on theCKD-EPI 2020 equation that doesnot use a race coefficient. Performed By: #### C FAITH, 59403-0, CBCA, 64262-5, 95757-2, PINR ####[facility] ([id number])[address] [place] [address]367 Glucose [Mass/Vol] 239 mg/dL High 65-99 [facility] Comment on above: Performed By: #### C FAITH, 39604-5, CBCA, 18958-1, 75612-1, PINR ####[facility] ([id number])[address] [place] [address]236 Potassium [Moles/Vol] 4.2 mmol/L Normal 3.5-5.0 [facility] Comment on above: Performed By: #### C FAITH, 96258-1, CBCA, 05718-1, 37107-4, PINR ####[facility] ([id number])[address] [place] [address] Protein [Mass/Vol] 8.1 g/dL High 6.0-8.0 [facility] Comment on above: Performed By: #### C MP, 53689-1, CBCA, 49946-9, 41572-5, PINR ####[facility] ([id number])[address] [place] [address]45 Sodium [Moles/Vol] 136 mmol/L Normal 134-146 [facility] Comment on above: Performed By: #### C FAITH, 17361-1, CBCA, 68143-2, 85686-6, PINR ####[facility] ([id number])[address] [place] [address] 22077 Urea nitrogen [Mass/Vol] 24 mg/dL Normal 5-27 [facility] Comment on above: Performed By: #### C FAITH, 38545-5, CBCA, 41717-7, 77325-1, PINR ####[facility] ([id number])[address] [place] [address] 02992 Lactate (P obed) [Moles/Vol]o n 11-19-2024 LACTATE W/REFLEX 1.5 mmol/L Normal 0.4-2.[address] [facility] Comment on above: Result Comment: Resu lt did not trigger repeat Lactate,re-order if needed. Performed By: #### 3 2133-1 ####[facility] ([id number])[address] [place] [address] 76218 MAGNESIUMon 11-19-2024 Magnesium [Mass/Vol] 1.7 mg/dL Low 1.8-2.6 [facility] Comment on above: Performed By: #### C FAITH, 13396-4, CBCA, 95814-7, 93814-1, PINR ####[facility] ([id number])[address] [place] [address] 42224 Natriuretic peptide B [Mass/ Vol]on 11-19-2024 Natriuretic peptide B (Bld) [Mass/Vol] 73 pg/mL Normal <100.0 [facility] Comment on above: Performed By: #### C MP, 98635-9, CBCA, 54475-5, 01201-7, PINR ####[facility] ([id number])[address] [place] [address] 10432 PROTIME AND INRon 11-19-2024 INR Coag (PPP) [Relative time] 1.2 {INR} High 0.8-1.1 [facility] Comment on above: Performed By: #### C MP, 83813-1, CBCA, 00025-4, 18750-9, PINR ####[facility] ([id number])[address] [place] [address] 10134 PT Coag (PPP) [Time] 13.4 s High 9.8-13.2 [facility] Comment on above: Result Comment: NEW REFERENCE RANGE Performed By: #### C MP, 06192-4, CBCA, 30716-6, 79082-4, PINR ####[facility] ([id number])[address] [place] [address] 97584 URINE CULTUREon 11-19-2024 Bacteria identified Cx Nom (U) CULTURE RESULTS <10,000 ORGANISMS/ML NORMAL URO GENITAL BAILEY Normal [facility] Comment on above: Performed By: #### 6 30-4 ####[facility] ([id number])[address], [place] [address] URN MACROSCOPIC NURon 2024 BILIRUBIN MARYJO Small Abnormal NEG [facility] Comment on above: Performed By: #### N UM ####[facility] ([id number])[address] [place] [address] 84875 BLOOD/HGB MARYJO Negative Normal NEG [facility] Comment on above: Performed By: #### N UM ####[facility] ([id number])[address] [place] [address], [place] [address] GLUCOSE MARYJO Negative Normal NEG [facility] Comment on above: Performed By: #### N UM ####[facility] ([id number])[address] [place] [address], [place] [address] KETONES MARYJO Negative Normal NEG [facility] Comment on above: Performed By: #### N UM ####[facility] ([id number])[address] [place] [address], [place] [address] LEUKOCYTE ESTERASE MARYJO Negative Normal NEG [facility] Comment on above: Performed By: #### N UM ####[facility] ([id number])[address] [place] [address], [place] [address] NITRITE MARYJO Negative Normal NEG [facility] Comment on above: Performed By: #### N UM ####[facility] ([id number])[address] [place] [address], [place] [address] PH MARYJO 6.0 Normal 5.0-8.5 [facility] Comment on above: Performed By: #### N UM ####[facility] ([id number])[address] [place] [address], [place] [address] PROTEIN MARYJO 30 mg/dL Abnormal NEG [facility] Comment on above: Performed By: #### N UM ####[facility] ([id number])[address] [place] [address], [place] [address] SPECIFIC GRAVITY MARYJO >=1.030 Normal 1.003-1.03 5 [facility] Comment on above: Performed By: #### N UM ####[facility] ([id number])[address] [place] [address], [place] [address] UROBILINOGEN MARYJO 0.2 eu/dL Normal <1.[address] [facility] Comment on above: Performed By: #### N UM ####[facility] ([id number])[address] [place] [address] 65329 aPTT Coag (PPP) [Time]on aPTT Coag (Bld) [Time] 33 s Normal 26-37 [facility] Comment on above: Result Comment: NEW REFERENCE RANGE Performed By: #### C MP, 08303-5, CBCA, 04970-2, 17241-3, PINR ####[facility] ([id number])[address] [place] [address] 59746 CBC AND AUTO DIFFon 11-17-19 25 ABSOLUTE BASOPHIL 0.0 X10E9/L Normal 0.0-0.2 [facility] Comment on above: Performed By: #### Renita HENSON CMP, 1987-03 ####[facility] ([id number])[address] [place] [address] 79158 ABSOLUTE NEUTROPHIL 4.5 X10E9/L Normal 1.5-6.6 [facility] Comment on above: Performed By: #### Renita HENSON [facility], 1987-03 ####[facility] ([id number])[address] [place] [address] 36247 Basophils/100 WBC (Bld) 0.6 % Normal [facility] Comment on above: Performed By: #### Renita HENSON CMP, 1987-03 ####[facility] ([id number])[address] [place] [address] 12931 Eosinophils (Bld) [#/Vol] 0.1 10*3/uL Normal 0.0-0.4 [facility] Comment on above: Performed By: #### Renita HENSON CMP, 1987-03 ####[facility] ([id number])[address] [place] [address] 96897 Eosinophils/100 WBC (Bld) 1.8 % Normal [facility] Comment on above: Performed By: #### Renita HENSON CMP, 1987-03 ####[facility] ([id number])[address] [place] [address] 33053 Erythrocyte distribution width (RBC) [Ratio] 15.3 % High 11.5-15.0 [facility] Comment on above: Performed By: #### C [facility], 1987-03 ####[facility] ([id number])[address] [place] [address] 47256 Hematocrit (Bld) [Volume fraction] 31.8 % Low 35-47 [facility] Comment on above: Performed By: #### C [facility], 1988-03 ####[facility] ([id number])[address] [place] [address] 40723 Hemoglobin (Bld) [Mass/Vol] 10.6 g/dL Low 11.7-15.5 [facility] Comment on above: Performed By: #### Renita HENSON [facility], 1988-03 ####[facility] ([id number])[address] [place] [address] 19909 Lymphocytes (Bld) [#/Vol] 1.7 10*3/uL Normal 1.0-3.5 [facility] Comment on above: Performed By: #### C [facility], 1988-03 ####[facility] ([id number])[address] [place] [address] 24376 Lymphocytes/100 WBC (Bld) 24.2 % Normal [facility] Comment on above: Performed By: #### C [facility], 1988-03 ####[facility] ([id number])[address] [place] [address] 99564 MCH (RBC) [Entitic mass] 28.0 pg Normal 27-34 [facility] Comment on above: Performed By: #### Renita HENSON [facility], 1988-03 ####[facility] ([id number])[address] [place] [address] 53011 MCHC (RBC) [Mass/Vol] 33.3 g/dL Normal 32-36 [facility] Comment on above: Performed By: #### Renita HENSON [facility], 1988-03 ####[facility] ([id number])[address] [place] [address] 73515 MCV (RBC) [Entitic vol] 84 fL Normal 80-100 [facility] Comment on above: Performed By: #### Renita HENSON [facility], 1988-03 ####[facility] ([id number])[address] [place] [address] 47992 Monocytes (Bld) [#/Vol] 0.7 10*3/uL Normal 0-0.9 [facility] Comment on above: Performed By: #### Renita HENSON CMP, 1987-03 ####[facility] ([id number])[address] [place] [address] 11705 Monocytes/100 WBC (Bld) 10.6 % Normal [facility] Comment on above: Performed By: #### Renita HENSON [facility], 1988-03 ####[facility] ([id number])[address] [place] [address] 14321 Neutrophils/100 WBC (Bld) 62.8 % Normal [facility] Comment on above: Performed By: #### Renita HENSON [facility], 1988-03 ####[facility] ([id number])[address] [place] [address] 17890 Platelet mean volume (Bld) [Entitic vol] 7.9 fL Normal 7-12 [facility] Comment on above: Performed By: #### Renita HENSON CMP, 1987-03 ####[facility] ([id number])[address] [place] [address] 49877 Platelets (Bld) [#/Vol] 344 10*3/uL Normal 150-450 [facility] Comment on above: Performed By: #### Renita RUBEN HENSON, 1987-03 ####[facility] ([id number])[address] [place] [address] 22916 RBC COUNT 3.77 X10E12/L Low 3.80-5.20 [facility] Comment on above: Performed By: #### C [facility], 1988-03 ####[facility] ([id number])[address] [place] [address] 57135 WBC (Bld) [#/Vol] 7.1 10*3/uL Normal 4.0-11.0 [facility] Comment on above: Performed By: #### Reniat HENSON [facility], 1988-03 ####[facility] ([id number])[address] [place] [address] 83347 COMPREHENSIVE METABOLIC PANE Dickson 11-17-2024 Albumin [Mass/Vol] 3.9 g/dL Normal 3.2-5.3 [facility] Comment on above: Performed By: #### Renita HENSON [facility], 1988-03 ####[facility] ([id number])[address] [place] [address] 59185 ALP [Catalytic activity/Vol] 106 U/L Normal 39-130 [facility] Comment on above: Performed By: #### Renita HENSON [facility], 1988-03 ####[facility] ([id number])[address] [place] [address] 59282 ALT [Catalytic activity/Vol] 17 U/L Normal 0-31 [facility] Comment on above: Performed By: #### Renita HENSON [facility], 1988-03 ####[facility] ([id number])[address] [place] [address] 61998 Anion gap [Moles/Vol] 10 mmol/L Normal 5-15 [facility] Comment on above: Performed By: #### Renita HENSON [facility], 1988-03 ####[facility] ([id number])[address] [place] [address] [place] [address] AST [Catalytic activity/Vol] 23 U/L Normal 0-41 [facility] Comment on above: Performed By: #### Renita HENSON [facility], 1988-03 ####[facility] ([id number])[address] [place] [address] 57829 Bilirubin [Mass/Vol] 0.5 mg/dL Normal 0.3-1.2 [facility] Comment on above: Performed By: #### Renita HENSON [facility], 1988-03 ####[facility] ([id number])[address] [place] [address] 10292 Calcium [Mass/Vol] 9.2 mg/dL Normal 8.5-10.5 [facility] Comment on above: Performed By: #### Renita HENSON [facility], 1988-03 ####[facility] ([id number])[address] [place] [address] 83362 Chloride [Moles/Vol] 101 mmol/L Normal 98-109 [facility] Comment on above: Performed By: #### Renita HENSON [facility], 1988-03 ####[facility] ([id number])[address] [place] [address] 81450 CO2 [Moles/Vol] 26 mmol/L Normal 22-32 [facility] Comment on above: Performed By: #### Renita HENSON [facility], 1988-03 ####[facility] ([id number])[address] [place] [address] [place] [address] Creatinine [Mass/Vol] 1.29 mg/dL High 0.40-1.00 [facility] Comment on above: Result Comment: METH OD TRACEABLE TO IDMS STANDARD Performed By: #### C RUBEN HENSON, 1987-03 ####[facility] ([id number])[address] [place] [address] 10732 GFR/1.73 sq M.predicted among non-blacks MDRD (S/P/Bld) [Vol rate/Area] 42 mL/min/{1.73_m2} Low >59 [facility] Comment on above: Result Comment: Repo rted eGFR is based on theCKD-EPI 2020 equation that doesnot use a race coefficient. Performed By: #### C [facility], 1988-03 ####[facility] ([id number])[address] [place] [address] 27106 Glucose [Mass/Vol] 212 mg/dL High 65-99 [facility] Comment on above: Performed By: #### Renita HENSON [facility], 1988-03 ####[facility] ([id number])[address] [place] [address] 07071 Potassium [Moles/Vol] 4.2 mmol/L Normal 3.5-5.0 [facility] Comment on above: Performed By: #### Renita HENSON [facility], 1988-03 ####[facility] ([id number])[address] [place] [address] 72591 Protein [Mass/Vol] 7.8 g/dL Normal 6.0-8.0 [facility] Comment on above: Performed By: #### Renita HENSON [facility], 1988-03 ####[facility] ([id number])[address] [place] [address] 29789 Sodium [Moles/Vol] 137 mmol/L Normal 134-146 [facility] Comment on above: Performed By: #### Renita HENSON [facility], 1988-03 ####[facility] ([id number])[address] [place] [address] 40944 Urea nitrogen [Mass/Vol] 18 mg/dL Normal 5-27 [facility] Comment on above: Performed By: #### Renita HENSON [facility], 1988-03 ####[facility] ([id number])[address] [place] [address] 21728 CRP [Mass/Vol]on 11-17-2024 C REACTIVE PROTEIN 2.4 mg/dL High 0.000-0.74 4 [facility] Comment on above: Performed By: #### C [facility], [facility], 1988-03 ####[facility] ([id number])[address] [place] [address] 63788 Lactate (P obed) [Moles/Vol]o n 11-17-2024 LACTATE W/REFLEX 1.2 mmol/L Normal 0.4-2.[address] [facility] Comment on above: Result Comment: Resu lt did not trigger repeat Lactate,re-order if needed. Performed By: #### 3 2133-1 ####[facility] ([id number])[address] [place] [address] 67162 URINE CULTUREon 11-17-2024 Bacteria identified Cx Nom (U) CULTURE RESULTS 50,000 to 100,000 ORGANISMS/mL BEVERLY GLABRATA <10,000 ORGANISMS/mL NORMAL URO GENITAL BAILEY Normal [facility] Comment on above: Performed By: #### 6 30-4 ####[facility] ([id number])[address] [facility], [address] [address] URN MACROSCOPIC NURon 2024 BILIRUBIN MARYJO Negative Normal NEG [facility] Comment on above: Performed By: #### N UM ####[facility] ([id number])[address] [place] [address] 41322 BLOOD/HGB MARYJO Trace Abnormal NEG [facility] Comment on above: Performed By: #### N UM ####[facility] ([id number])[address] [place] [address] 12770 GLUCOSE MARYJO Negative Normal NEG [facility] Comment on above: Performed By: #### N UM ####[facility] ([id number])[address] [place] [address] 46928 KETONES MARYJO Negative Normal NEG [facility] Comment on above: Performed By: #### N UM ####[facility] ([id number])[address] [place] [address] 07302 LEUKOCYTE ESTERASE MARYJO Trace Abnormal NEG [facility] Comment on above: Performed By: #### N UM ####[facility] ([id number])[address] [place] [address] 44653 NITRITE MARYJO Negative Normal NEG [facility] Comment on above: Performed By: #### N UM ####[facility] ([id number])[address] [place] [address] 65356 PH MARYJO 7.0 Normal 5.0-8.5 [facility] Comment on above: Performed By: #### N UM ####[facility] ([id number])[address] [place] [address] 11366 PROTEIN MARYJO 100 mg/dL Abnormal NEG [facility] Comment on above: Performed By: #### N UM ####[facility] ([id number])[address] [place] [address] 21446 SPECIFIC GRAVITY MARYJO >=1.030 Normal 1.003-1.[address] [place] [address] Comment on above: Performed By: #### N UM ####[facility] ([id number])[address] [place] [address] 11861 UROBILINOGEN MARYJO 0.2 eu/dL Normal <1.[address] [facility] Comment on above: Performed By: #### N UM ####[facility] ([id number])[address] [place] [address] 31005 CBC AND AUTO DIFFon 11-10-20 24 ABSOLUTE BASOPHIL 0.1 X10E9/L Normal 0.0-0.2 [facility] Comment on above: Performed By: #### C MP, 06087-6, CBCA ####[facility] ([id number])[address] [place] [address] [place] [address] ABSOLUTE NEUTROPHIL 4.4 X10E9/L Normal 1.5-6.6 [facility] Comment on above: Performed By: #### C FAITH, , CBCA ####[facility] ([id number])[address] [place] [address] 99771 Basophils/100 WBC (Bld) 0.9 % Normal [facility] Comment on above: Performed By: #### C FAITH, , CBCA ####[facility] ([id number])[address] [place] [address] 11873 Eosinophils (Bld) [#/Vol] 0.2 10*3/uL Normal 0.0-0.4 [facility] Comment on above: Performed By: #### C FAITH, , CBCA ####[facility] ([id number])[address] [place] [address] 97851 Eosinophils/100 WBC (Bld) 3.2 % Normal [facility] Comment on above: Performed By: #### C FAITH, , CBCA ####[facility] ([id number])[address] [place] [address] 93717 Erythrocyte distribution width (RBC) [Ratio] 15.6 % High 11.5-15.0 [facility] Comment on above: Performed By: #### C FAITH, , CBCA ####[facility] ([id number])[address] [place] [address] 86220 Hematocrit (Bld) [Volume fraction] 29.8 % Low 35-47 [facility] Comment on above: Performed By: #### C FAITH, , CBCA ####[facility] ([id number])[address] [place] [address] 13117 Hemoglobin (Bld) [Mass/Vol] 9.8 g/dL Low 11.7-15.5 [facility] Comment on above: Performed By: #### C FAITH, , CBCA ####[facility] ([id number])[address] [place] [address] 03543 Lymphocytes (Bld) [#/Vol] 2.1 10*3/uL Normal 1.0-3.5 [facility] Comment on above: Performed By: #### Renita CUEVAS, , CBCA ####[facility] ([id number])[address] [place] [address] 19230 Lymphocytes/100 WBC (Bld) 27.1 % Normal [facility] Comment on above: Performed By: #### Renita CUEVAS, , CBCA ####[facility] ([id number])[address] [place] [address] 58389 MCH (RBC) [Entitic mass] 28.0 pg Normal 27-34 [facility] Comment on above: Performed By: #### Renita CUEVAS, , CBCA ####[facility] ([id number])[address] [place] [address] 21421 MCHC (RBC) [Mass/Vol] 33.0 g/dL Normal 32-36 [facility] Comment on above: Performed By: #### Renita CUEVAS, , CBCA ####[facility] ([id number])[address] [place] [address] 74297 MCV (RBC) [Entitic vol] 85 fL Normal 80-100 [facility] Comment on above: Performed By: #### Renita CUEVAS, , CBCA ####[facility] ([id number])[address] [place] [address] 25980 Monocytes (Bld) [#/Vol] 0.8 10*3/uL Normal 0-0.9 [facility] Comment on above: Performed By: #### C FAITH, , CBCA ####[facility] ([id number])[address] [place] [address] 17030 Monocytes/100 WBC (Bld) 10.5 % Normal [facility] Comment on above: Performed By: #### C FAITH, , CBCA ####[facility] ([id number])[address] [place] [address] 31660 Neutrophils/100 WBC (Bld) 58.3 % Normal [facility] Comment on above: Performed By: #### C FAITH, , CBCA ####[facility] ([id number])[address] [place] [address] 07052 Platelet mean volume (Bld) [Entitic vol] 8.6 fL Normal 7-12 [facility] Comment on above: Performed By: #### C FAITH, , CBCA ####[facility] ([id number])[address] [place] [address] 77057 Platelets (Bld) [#/Vol] 268 10*3/uL Normal 150-450 [facility] Comment on above: Performed By: #### C FAITH, , CBCA ####[facility] ([id number])[address] [place] [address] [place] [address] RBC COUNT 3.52 X10E12/L Low 3.80-5.20 [facility] Comment on above: Performed By: #### C FAITH, , CBCA ####[facility] ([id number])[address] [place] [address] 58672 WBC (Bld) [#/Vol] 7.6 10*3/uL Normal 4.0-11.0 [facility] Comment on above: Performed By: #### C FAITH, , CBCA ####[facility] ([id number])[address] [place] [address], [place] [address] COMPREHENSIVE METABOLIC PANE Dickson 11-10-2024 Albumin [Mass/Vol] 3.7 g/dL Normal 3.2-5.3 [facility] Comment on above: Performed By: #### C FAITH, , CBCA ####[facility] ([id number])[address] [place] [address] [place] [address] ALP [Catalytic activity/Vol] 90 U/L Normal 39-130 [facility] Comment on above: Performed By: #### Renita CUEVAS, , CBCA ####[facility] ([id number])[address] [place] [address] 25217 ALT [Catalytic activity/Vol] 16 U/L Normal 0-31 [facility] Comment on above: Performed By: #### Renita CUEVAS, , CBCA ####[facility] ([id number])[address] [place] [address] [place] [address] Anion gap [Moles/Vol] 9 mmol/L Normal 5-15 [facility] Comment on above: Performed By: #### Renita CUEVAS, , CBCA ####[facility] ([id number])[address] [place] [address] 14832 AST [Catalytic activity/Vol] 17 U/L Normal 0-41 [facility] Comment on above: Performed By: #### Renita CUEVAS, , CBCA ####[facility] ([id number])[address] [place] [address] 33658 Bilirubin [Mass/Vol] 0.5 mg/dL Normal 0.3-1.2 [facility] Comment on above: Performed By: #### Renita CUEVAS, , CBCA ####[facility] ([id number])[address] [place] [address] [place] [address] Calcium [Mass/Vol] 8.9 mg/dL Normal 8.5-10.5 [facility] Comment on above: Performed By: #### C FAITH, , CBCA ####[facility] ([id number])[address] [place] [address] 18699 Chloride [Moles/Vol] 101 mmol/L Normal 98-109 [facility] Comment on above: Performed By: #### C FAITH, , CBCA ####[facility] ([id number])[address] [place] [address] 82728 CO2 [Moles/Vol] 25 mmol/L Normal 22-32 [facility] Comment on above: Performed By: #### C FAITH, , CBCA ####[facility] ([id number])[address] [place] [address] 61488 Creatinine [Mass/Vol] 1.38 mg/dL High 0.40-1.00 [facility] Comment on above: Result Comment: METH OD TRACEABLE TO IDMS STANDARD Performed By: #### C FAITH, , CBCA ####[facility] ([id number])[address] [place] [address] 18142 GFR/1.73 sq M.predicted among non-blacks MDRD (S/P/Bld) [Vol rate/Area] 39 mL/min/{1.73_m2} Low >59 [facility] Comment on above: Result Comment: Repo rted eGFR is based on theCKD-EPI 2020 equation that doesnot use a race coefficient. Performed By: #### C FAITH, , CBCA ####[facility] ([id number])[address] [place] [address] [id number] Glucose [Mass/Vol] 146 mg/dL High 65-99 [facility] Comment on above: Performed By: #### C FAITH, , CBCA ####[facility] ([id number])[address] [place] [address] [id number] Potassium [Moles/Vol] 4.2 mmol/L Normal 3.5-5.0 [facility] Comment on above: Performed By: #### C FAITH, , CBCA ####[facility] ([id number])[address] [place] [address] [id number] Protein [Mass/Vol] 7.1 g/dL Normal 6.0-8.0 [facility] Comment on above: Performed By: #### C FAITH, , CBCA ####[facility] ([id number])[address] [place] [address] [id number] Sodium [Moles/Vol] 135 mmol/L Normal 134-146 [facility] Comment on above: Performed By: #### C FAITH, , CBCA ####[facility] ([id number])[address] [place] [address] 18109 Urea nitrogen [Mass/Vol] 22 mg/dL Normal - [facility] Comment on above: Performed By: #### C FAITH, , CBCA ####[facility] ([id number])[address] [place] [address] [id number] Glucose Glucometer (BldC) [M ass/Vol]on 11-10-2024 Glucose [Mass/Vol] 337 mg/dL High 65-99 [facility] MAGNESIUMon 11-10-2024 Magnesium [Mass/Vol] 2.4 mg/dL Normal 1.8-2.6 [facility] Comment on above: Performed By: #### C FAITH, , CBCA ####[facility] ([id number])[address] [place], [place] [address] 23058 BLOOD CULTUREon 11-09-2024 Bacteria identified Aer cx Nom (Bld) CULTURE RESULTS NO GROWTH 5 DAYS Normal [facility] Bacteria identified Aer cx Nom (Bld) CULTURE RESULTS NO GROWTH 5 DAYS Normal [facility] CBC AND AUTO DIFFon 11-09-20 24 ABSOLUTE BASOPHIL 0.0 X10E9/L Normal 0.0-0.2 [facility] Comment on above: Performed By: #### C FAITH, 30435-2, CBCA, 29741-4, 15392-7 ####[facility] ([id number])[address] [place] [address] 96059 ABSOLUTE NEUTROPHIL 4.6 X10E9/L Normal 1.5-6.6 [facility] Comment on above: Performed By: #### C FAITH, 19380-7, CBCA, 17869-7, 88176-2 ####[facility] ([id number])[address] [place] [address] 03202 Basophils/100 WBC (Bld) 0.5 % Normal [facility] Comment on above: Performed By: #### C FAITH, 50838-3, CBCA, 55971-3, 28285-9 ####[facility] ([id number])[address] [place] [address] 16557 Eosinophils (Bld) [#/Vol] 0.1 10*3/uL Normal 0.0-0.4 [facility] Comment on above: Performed By: #### C FAITH, 30554-0, CBCA, 63936-5, 42591-5 ####[facility] ([id number])[address] [place] [address] 96703 Eosinophils/100 WBC (Bld) 1.7 % Normal [facility] Comment on above: Performed By: #### C FAITH, 95689-6, CBCA, 47022-0, 96166-6 ####[facility] ([id number])[address] [place] [address] Erythrocyte distribution width (RBC) [Ratio] 15.3 % High 11.5-15.0 [facility] Comment on above: Performed By: #### C FAITH, 57795-8, CBCA, , 46158-3 ####[facility] ([id number])[address] [place] [address] 13260 Hematocrit (Bld) [Volume fraction] 29.6 % Low 35-47 [facility] Comment on above: Performed By: #### C FAITH, 58639-5, CBCA, , 29736-4 ####[facility] ([id number])[address] [place] [address] 22347 Hemoglobin (Bld) [Mass/Vol] 10.1 g/dL Low 11.7-15.5 [facility] Comment on above: Performed By: #### C FAITH, 26024-0, CBCA, , 40188-0 ####[facility] ([id number])[address] [place] [address] 41303 Lymphocytes (Bld) [#/Vol] 2.1 10*3/uL Normal 1.0-3.5 [facility] Comment on above: Performed By: #### C FAITH, 41869-5, CBCA, , 60835-1 ####[facility] ([id number])[address] [place] [address] 97853 Lymphocytes/100 WBC (Bld) 27.4 % Normal [facility] Comment on above: Performed By: #### C FAITH, 42962-6, CBCA, , 20089-0 ####[facility] ([id number])[address] [place] [address] 12482 MCH (RBC) [Entitic mass] 28.9 pg Normal 27-34 [facility] Comment on above: Performed By: #### C FAITH, 88377-7, CBCA, 64147-0, 49083-5 ####[facility] ([id number])[address] [place] [address] 48923 MCHC (RBC) [Mass/Vol] 34.3 g/dL Normal 32-36 [facility] Comment on above: Performed By: #### C FAITH, 99112-3, CBCA, 99747-3, 03355-4 ####[facility] ([id number])[address] [place] [address] 44469 MCV (RBC) [Entitic vol] 84 fL Normal 80-100 [facility] Comment on above: Performed By: #### C FAITH, 26278-7, CBCA, 36766-4, 06682-6 ####[facility] ([id number])[address] [place] [address] 61196 Monocytes (Bld) [#/Vol] 0.9 10*3/uL Normal 0-0.9 [facility] Comment on above: Performed By: #### C FAITH, 63005-5, CBCA, , 87652-7 ####[facility] ([id number])[address] [place] [address] 63226 Monocytes/100 WBC (Bld) 11.3 % Normal [facility] Comment on above: Performed By: #### C FAITH, 65219-7, CBCA, 24596-4, 32543-2 ####[facility] ([id number])[address] [place] [address] 22523 Neutrophils/100 WBC (Bld) 59.1 % Normal [facility] Comment on above: Performed By: #### C FAITH, 89893-9, CBCA, 29837-6, 20907-0 ####[facility] ([id number])[address] [place] [address] 47739 Platelet mean volume (Bld) [Entitic vol] 8.2 fL Normal 7-12 [facility] Comment on above: Performed By: #### C FAITH, 59312-2, CBCA, , 39028-3 ####[facility] ([id number])[address] [place] [address] 34672 Platelets (Bld) [#/Vol] 275 10*3/uL Normal 150-450 [facility] Comment on above: Performed By: #### C FAITH, 93961-9, CBCA, , 71805-5 ####[facility] ([id number])[address] [place] [address] 58341 RBC COUNT 3.51 X10E12/L Low 3.80-5.20 [facility] Comment on above: Performed By: #### C FAITH, 20802-2, CBCA, , 58125-2 ####[facility] ([id number])[address] [place] [address] 38238 WBC (Bld) [#/Vol] 7.8 10*3/uL Normal 4.0-11.0 [facility] Comment on above: Performed By: #### C FAITH, 39445-2, CBCA, , 94116-4 ####[facility] ([id number])[address] [place] [address] 08229 COMPREHENSIVE METABOLIC PANE Dickson 11-09-2024 Albumin [Mass/Vol] 3.5 g/dL Normal 3.2-5.3 [facility] Comment on above: Performed By: #### C FAITH, 51804-2, CBCA, , 04518-2 ####[facility] ([id number])[address] [place] [address] 75699 ALP [Catalytic activity/Vol] 89 U/L Normal 39-130 [facility] Comment on above: Performed By: #### C FAITH, 18034-6, CBCA, 62615-9, 28757-1 ####[facility] ([id number])[address] [place] [address] 03844 ALT [Catalytic activity/Vol] 16 U/L Normal 0-31 [facility] Comment on above: Performed By: #### C FAITH, 48268-2, CBCA, 56782-7, 38906-2 ####[facility] ([id number])[address] [place] [address] 26617 Anion gap [Moles/Vol] 10 mmol/L Normal 5-15 [facility] Comment on above: Performed By: #### C FAITH, 49881-1, CBCA, 94720-3, 59817-3 ####[facility] ([id number])[address] [place] [address] 66902 AST [Catalytic activity/Vol] 19 U/L Normal 0-41 [facility] Comment on above: Performed By: #### C FAITH, 29171-3, CBCA, 09485-4, 22533-9 ####[facility] ([id number])[address] [place] [address] 43656 Bilirubin [Mass/Vol] 0.7 mg/dL Normal 0.3-1.2 [facility] Comment on above: Performed By: #### C FAITH, 81385-7, CBCA, 95746-4, 72773-4 ####[facility] ([id number])[address] [place] [address] 60543 Calcium [Mass/Vol] 9.3 mg/dL Normal 8.5-10.5 [facility] Comment on above: Performed By: #### C FAITH, 49041-6, CBCA, 92108-1, 57071-2 ####[facility] ([id number])[address] [place] [address] 81744 Chloride [Moles/Vol] 99 mmol/L Normal 98-109 [facility] Comment on above: Performed By: #### C FAITH, 17411-5, CBCA, 67189-5, 06189-4 ####[facility] ([id number])[address] [place] [address] 18982 CO2 [Moles/Vol] 28 mmol/L Normal 22-32 [facility] Comment on above: Performed By: #### C FAITH, 29738-5, CBCA, 09780-0, 19267-3 ####[facility] ([id number])[address] [place] [address] 94297 Creatinine [Mass/Vol] 1.32 mg/dL High 0.40-1.00 [facility] Comment on above: Result Comment: METH OD TRACEABLE TO IDMS STANDARD Performed By: #### C FAITH, 68493-7, CBCA, 63265-2, 08000-9 ####[facility] ([id number])[address] [place] [address] 93135 GFR/1.73 sq M.predicted among non-blacks MDRD (S/P/Bld) [Vol rate/Area] 41 mL/min/{1.73_m2} Low >59 [facility] Comment on above: Result Comment: Repo rted eGFR is based on theCKD-EPI 2020 equation that doesnot use a race coefficient. Performed By: #### C FAITH, 63976-6, CBCA, 62028-8, 27676-6 ####[facility] ([id number])[address] [place] [address] 71758 Glucose [Mass/Vol] 206 mg/dL High 65-99 [facility] Comment on above: Performed By: #### C FAITH, 84795-9, CBCA, 19903-5, 94503-8 ####[facility] ([id number])[address] [place] [address] 24962 Potassium [Moles/Vol] 3.9 mmol/L Normal 3.5-5.0 [facility] Comment on above: Performed By: #### C MP, 82840-9, CBCA, 68995-7, 18856-8 ####[facility] ([id number])[address] [place] [address] 67373 Protein [Mass/Vol] 7.3 g/dL Normal 6.0-8.0 [facility] Comment on above: Performed By: #### C FAITH, 19077-7, CBCA, 81569-5, 51405-1 ####[facility] ([id number])[address] [place] [address] 97193 Sodium [Moles/Vol] 137 mmol/L Normal 134-146 [facility] Comment on above: Performed By: #### C FAITH, 65409-1, CBCA, 23888-0, 77469-4 ####[facility] ([id number])[address] [place] [address] 81499 Urea nitrogen [Mass/Vol] 17 mg/dL Normal 5-27 [facility] Comment on above: Performed By: #### C FAITH, 23718-2, CBCA, 77969-1, 07661-1 ####[facility] ([id number])[address] [place] [address] 68784 CRP High sensitivity method [Mass/Vol]on 11-09-2024 HS CRP 3.030 mg/dL High 0.000-0.74 4 [facility] Comment on above: Result Comment: Hs-C RP FOR CARDIAC RISK ASSESSMENT: By this method, 75% of hs-CRP values inhealthy adults will be <0.37mg/dL. Prospectivestudies have shown that hs-CRP values in theupper quartile of an apparently healthypopulation are associated with an approximate3-fold increase in risk of developing cardio-vascular disease. This increase in risk iseven more pronounced in the presence of anelevated Cholesterol/HDL-C ratio (>5.5).Hs-CRP is a nonspecific marker of inflammationand can be elevated in other conditions. Performed By: #### 3 0522-7 ####[facility] ([id number])[address] [facility], [address] [place] [address] 03427 HS CRP 2.859 mg/dL High 0.000-0.74 4 [facility] Comment on above: Result Comment: Hs-C RP FOR CARDIAC RISK ASSESSMENT: By this method, 75% of hs-CRP values inhealthy adults will be <0.37mg/dL. Prospectivestudies have shown that hs-CRP values in theupper quartile of an apparently healthypopulation are associated with an approximate3-fold increase in risk of developing cardio-vascular disease. This increase in risk iseven more pronounced in the presence of anelevated Cholesterol/HDL-C ratio (>5.5).Hs-CRP is a nonspecific marker of inflammationand can be elevated in other conditions. Performed By: #### 8 9579-7 ####[facility] ([id number])[address] [place] [address] 89629#### 72923-0 ####[facility] ([id number])[address] [facility], [address] [place] [address] 66230 Glucose Glucometer (BldC) [M ass/Vol]on 11-09-2024 Glucose [Mass/Vol] 252 mg/dL High 65-99 [facility] Glucose [Mass/Vol] 118 mg/dL High 65-99 [facility] Glucose [Mass/Vol] 253 mg/dL High 65-99 [facility] Lactate (P obed) [Moles/Vol]o n 11-09-2024 LACTATE W/REFLEX 1.2 mmol/L Normal 0.4-2.[address] [facility] Comment on above: Result Comment: Resu lt did not trigger repeat Lactate,re-order if needed. Performed By: #### 3 2133-1 ####[facility] ([id number])[address] [place] [address] 29782 MAGNESIUMon 11-09-2024 Magnesium [Mass/Vol] 2.6 mg/dL Normal 1.8-2.6 [facility] Comment on above: Performed By: #### 1 9123-9 ####[facility] ([id number])[address] [place] [address] 88586 Magnesium [Mass/Vol] 1.6 mg/dL Low 1.8-2.6 [facility] Comment on above: Performed By: #### C MP, 75531-7, CBCA, 90214-5, 33716-1 ####[facility] ([id number])[address] [place] [address] 84613 Natriuretic peptide B [Mass/ Vol]on 11-09-2024 Natriuretic peptide B (Bld) [Mass/Vol] 74 pg/mL Normal <100.0 [facility] Comment on above: Performed By: #### C MP, 96903-3, CBCA, 24464-1, 70971-8 ####[facility] ([id number])[address] [place] [address] 57152 RESP PATHOGENS/XOAS-MmE-3lm 11-09-2024 Respiratory pathogens DNA and RNA panel SIRI+non-probe (Nph) Normal [facility] Comment on above: Performed By: #### 8 2159-5 ####[facility] ([id number])[address] [place] [address] 26069AGEFSHC[facility] ([id number])[address] [place] [address], [address], [place] [address] SARS/FLU A+B/RSV by NAAT/Mol ecularon 11-09-2024 SARS/FLU A+B/RSV by NAAT/Molecular Normal [facility] Comment on above: Performed By: #### C OVFLR ####[facility] ([id number])[address] [place] [address] 16845 Troponin I.cardiac High sens itivity method [Mass/Vol]on 11-09-2024 1 HOUR TROP I, HIGH SENSITIVITY 92 ng/L High <16 [facility] Comment on above: Result Comment: Elev ations of hs-Troponin may be due to causesother than myocardial ischemia.Recommend serial hs-Troponin testing be performed.For the initial evaluation and management of chestpain patients, refer to the algorithms linked below.Emergency Patient:[email or web address] Performed By: #### 8 9579-7 ####[facility] ([id number])[address] [place] [address] 55860#### 64878-5 ####[facility] ([id number])[address] [place] [address], [address] [place] [address] 63141 TROPONIN I, HIGH SENSITIVITY 97 ng/L High <16 [facility] Comment on above: Result Comment: Elev ations of hs-Troponin may be due to causesother than myocardial ischemia.Recommend serial hs-Troponin testing be performed.For the initial evaluation and management of chestpain patients, refer to the algorithms linked below.Emergency Patient:[email or web address]:[email or web address] Performed By: #### C MP, 87199-5, CBCA, 05871-7, 39627-9 ####[facility] ([id number])[address] [place] [address] 43073 URINALYSISon 11-09-2024 Bilirubin Ql (U) Negative Normal NEG [facility] Comment on above: Performed By: #### U A ####[facility] ([id number])[address] [place] [address] [place] [address] BLOOD/HGB Negative Normal NEG [facility] Comment on above: Performed By: #### U A ####[facility] ([id number])[address] [place] [address] [place] [address] Color (U) YELLOW Normal YELLOW [facility] Comment on above: Performed By: #### U A ####[facility] ([id number])[address] [place] [address] [place] [address] Glucose Ql (U) Negative Normal NEG [facility] Comment on above: Performed By: #### U A ####[facility] ([id number])[address] [place] [address] [place] [address] Ketones Ql (U) Negative Normal NEG [facility] Comment on above: Performed By: #### U A ####[facility] ([id number])[address] [place] [address] [place] [address] Leukocyte esterase Test strip Ql (U) SMALL Abnormal NEG [facility] Comment on above: Performed By: #### U A ####[facility] ([id number])[address] [place] [address] [place] [address] Nitrite Ql (U) Positive Abnormal NEG [facility] Comment on above: Performed By: #### U A ####[facility] ([id number])[address] [place] [address] [place] [address] pH (U) 6.0 [pH] Normal 5.0-8.5 [facility] Comment on above: Performed By: #### U A ####[facility] ([id number])[address] [place] [address] [place] [address] Protein Ql (U) Trace Abnormal NEG [facility] Comment on above: Performed By: #### U A ####[facility] ([id number])[address] [place] [address] [place] [address] R.B.CELLS 1 /hpf Normal 0-5 [facility] Comment on above: Performed By: #### U A ####[facility] ([id number])[address] [place] [address] 29063 Specific gravity (U) [Rel density] 1.025 Normal 1.003-1.03 5 [facility] Comment on above: Performed By: #### U A ####[facility] ([id number])[address] [place] [address] 31900 SQUAMOUS EPITHELIUM 3 /hpf Normal 0-5 [facility] Comment on above: Performed By: #### U A ####[facility] ([id number])[address] [place] [address] 55195 TURBIDITY CLEAR Normal CLEAR [facility] Comment on above: Performed By: #### U A ####[facility] ([id number])[address] [place] [address] [place] [address] Urobilinogen Qn (U) 0.2 {Artie'U}/dL Normal <1.1 [facility] Comment on above: Performed By: #### U A ####[facility] ([id number])[address] [place] [address] 25462 W.B.CELLS 2 /hpf Normal 0-5 [facility] Comment on above: Performed By: #### U A ####[facility] ([id number])[address] [place] [address] [place] [address] URINE CULTUREon 11-09-2024 Bacteria identified Cx Nom (U) Susceptible [facility] Comment on above: Performed By: #### 6 30-4 ####[facility] ([id number])[address] [facility], [address] [address] XR CHEST 1 VWon 11-09-2024 XR CHEST 1 VW Normal [facility] CBC AND AUTO DIFFon 10-30-20 ABSOLUTE BASOPHIL 0.0 X10E9/L Normal 0.0-0.2 [facility] Comment on above: Performed By: #### 1 9123-9, CBCA, CMP ####[facility] ([id number])[address] [place] [address] 70122 ABSOLUTE NEUTROPHIL 3.1 X10E9/L Normal 1.5-6.6 [facility] Comment on above: Performed By: #### 1 9123-9, CBCA, CMP ####[facility] ([id number])[address] [place] [address] 57234 Basophils/100 WBC (Bld) 0.8 % Normal [facility] Comment on above: Performed By: #### 1 9123-9, CBCA, CMP ####[facility] ([id number])[address] [place] [address] 82303 Eosinophils (Bld) [#/Vol] 0.4 10*3/uL Normal 0.0-0.4 [facility] Comment on above: Performed By: #### 1 9123-9, CBCA, CMP ####[facility] ([id number])[address] [place] [address] 29385 Eosinophils/100 WBC (Bld) 5.9 % Normal [facility] Comment on above: Performed By: #### 1 9123-9, CBCA, CMP ####[facility] ([id number])[address] [place] [address] 83309 Erythrocyte distribution width (RBC) [Ratio] 15.8 % High 11.5-15.0 [facility] Comment on above: Performed By: #### 1 9123-9, CBCA, CMP ####[facility] ([id number])[address] [place] [address] 18802 Hematocrit (Bld) [Volume fraction] 30.3 % Low 35-47 [facility] Comment on above: Performed By: #### 1 9123-9, CBCA, CMP ####[facility] ([id number])[address] [place] [address] 59430 Hemoglobin (Bld) [Mass/Vol] 10.2 g/dL Low 11.7-15.5 [facility] Comment on above: Performed By: #### 1 9123-9, CBCA, CMP ####[facility] ([id number])[address] [place] [address] 26901 Lymphocytes (Bld) [#/Vol] 2.1 10*3/uL Normal 1.0-3.5 [facility] Comment on above: Performed By: #### 1 9123-9, CBCA, CMP ####[facility] ([id number])[address] [place] [address] 96501 Lymphocytes/100 WBC (Bld) 33.5 % Normal [facility] Comment on above: Performed By: #### 1 9123-9, CBCA, CMP ####[facility] ([id number])[address] [place] [address] 40721 MCH (RBC) [Entitic mass] 28.4 pg Normal 27-34 [facility] Comment on above: Performed By: #### 1 9123-9, CBCA, CMP ####[facility] ([id number])[address] [place] [address] 83871 MCHC (RBC) [Mass/Vol] 33.8 g/dL Normal 32-36 [facility] Comment on above: Performed By: #### 1 9123-9, CBCA, CMP ####[facility] ([id number])[address] [place] [address] 76384 MCV (RBC) [Entitic vol] 84 fL Normal 80-100 [facility] Comment on above: Performed By: #### 1 9123-9, CBCA, CMP ####[facility] ([id number])[address] [place] [address] 91616 Monocytes (Bld) [#/Vol] 0.6 10*3/uL Normal 0-0.9 [facility] Comment on above: Performed By: #### 1 9123-9, CBCA, CMP ####[facility] ([id number])[address] [place] [address] 08756 Monocytes/100 WBC (Bld) 10.1 % Normal [facility] Comment on above: Performed By: #### 1 9123-9, CBCA, CMP ####[facility] ([id number])[address] [place] [address] 93707 Neutrophils/100 WBC (Bld) 49.7 % Normal [facility] Comment on above: Performed By: #### 1 9123-9, CBCA, CMP ####[facility] ([id number])[address] [place] [address] 59189 Platelet mean volume (Bld) [Entitic vol] 8.8 fL Normal 7-12 [facility] Comment on above: Performed By: #### 1 9123-9, CBCA, CMP ####[facility] ([id number])[address] [place] [address] 86010 Platelets (Bld) [#/Vol] 224 10*3/uL Normal 150-450 [facility] Comment on above: Performed By: #### 1 9123-9, CBCA, CMP ####[facility] ([id number])[address] [place] [address] 75201 RBC COUNT 3.60 X10E12/L Low 3.80-5.20 [facility] Comment on above: Performed By: #### 1 9123-9, CBCA, CMP ####[facility] ([id number])[address] [place] [address] 99344 WBC (Bld) [#/Vol] 6.2 10*3/uL Normal 4.0-11.0 [facility] Comment on above: Performed By: #### 1 9123-9, CBCA, CMP ####[facility] ([id number])[address] [place] [address] 27466 COMPREHENSIVE METABOLIC PANE [facility] 10-30-2024 Albumin [Mass/Vol] 3.6 g/dL Normal 3.2-5.3 [facility] Comment on above: Performed By: #### 1 9123-9, CBCA, CMP ####[facility] ([id number])[address] [place] [address] 46915 ALP [Catalytic activity/Vol] 85 U/L Normal 39-130 [facility] Comment on above: Performed By: #### 1 9123-9, CBCA, CMP ####[facility] ([id number])[address] [place] [address] 68521 ALT [Catalytic activity/Vol] 15 U/L Normal 0-31 [facility] Comment on above: Performed By: #### 1 9123-9, CBCA, CMP ####[facility] ([id number])[address] [place] [address] 81690 Anion gap [Moles/Vol] 10 mmol/L Normal 5-15 [facility] Comment on above: Performed By: #### 1 9123-9, CBCA, CMP ####[facility] ([id number])[address], [place] [address] AST [Catalytic activity/Vol] 19 U/L Normal 0-41 [facility] Comment on above: Performed By: #### 1 9123-9, CBCA, CMP ####[facility] ([id number])[address] [place] [address]124 Bilirubin [Mass/Vol] 0.2 mg/dL Low 0.3-1.2 [facility] Comment on above: Performed By: #### 1 9123-9, CBCA, CMP ####[facility] ([id number])[address] [place] [address] 21614 Calcium [Mass/Vol] 8.8 mg/dL Normal 8.5-10.5 [facility] Comment on above: Performed By: #### 1 9123-9, CBCA, CMP ####[facility] ([id number])[address] [place] [address] 88736 Chloride [Moles/Vol] 103 mmol/L Normal 98-109 [facility] Comment on above: Performed By: #### 1 9123-9, CBCA, CMP ####[facility] ([id number])[address] [place] [address] 31215 CO2 [Moles/Vol] 23 mmol/L Normal 22-32 [facility] Comment on above: Performed By: #### 1 9123-9, CBCA, CMP ####[facility] ([id number])[address] [place] [address] 29846 Creatinine [Mass/Vol] 1.55 mg/dL High 0.40-1.00 [facility] Comment on above: Result Comment: METH OD TRACEABLE TO IDMS STANDARD Performed By: #### 1 9123-9, CBCA, CMP ####[facility] ([id number])[address] [place] [address] 27044 GFR/1.73 sq M.predicted among non-blacks MDRD (S/P/Bld) [Vol rate/Area] 34 mL/min/{1.73_m2} Low >59 [facility] Comment on above: Result Comment: Repo rted eGFR is based on theCKD-EPI 2020 equation that doesnot use a race coefficient. Performed By: #### 1 9123-9, CBCA, CMP ####[facility] ([id number])[address] [place] [address] 54776 Glucose [Mass/Vol] 234 mg/dL High 65-99 [facility] Comment on above: Performed By: #### 1 9123-9, CBCA, CMP ####[facility] ([id number])[address] [place] [address] [address] Potassium [Moles/Vol] 4.2 mmol/L Normal 3.5-5.0 [facility] Comment on above: Performed By: #### 1 9123-9, CBCA, CMP ####[facility] ([id number])[address] [place] [address] 48636 Protein [Mass/Vol] 6.7 g/dL Normal 6.0-8.0 [facility] Comment on above: Performed By: #### 1 9123-9, CBCA, CMP ####[facility] ([id number])[address] [place] [address] 87339 Sodium [Moles/Vol] 136 mmol/L Normal 134-146 [facility] Comment on above: Performed By: #### 1 9123-9, CBCA, CMP ####[facility] ([id number])[address] [place] [address] 19111 Urea nitrogen [Mass/Vol] 33 mg/dL High 5-27 [facility] Comment on above: Performed By: #### 1 9123-9, CBCA, CMP ####[facility] ([id number])[address] [place] [address] 51266 Glucose Glucometer (BldC) [M ass/Vol]on 10-30-2024 Glucose [Mass/Vol] 169 mg/dL High 65-99 [facility] MAGNESIUMon 10-30-2024 Magnesium [Mass/Vol] 1.9 mg/dL Normal 1.8-2.6 [facility] Comment on above: Performed By: #### 1 9123-9, CBCA, CMP ####[facility] ([id number])[address] [place] [address] 56401 CBC AND AUTO DIFFon 10-29-20 ABSOLUTE BASOPHIL 0.0 X10E9/L Normal 0.0-0.2 [facility] Comment on above: Performed By: #### C MP, CBCA, ####[facility] ([id number])[address] [place] [address] 99622 ABSOLUTE NEUTROPHIL 3.7 X10E9/L Normal 1.5-6.6 [facility] Comment on above: Performed By: #### C MP, CBCA, ####[facility] ([id number])[address] [place] [address] 04403 Basophils/100 WBC (Bld) 0.7 % Normal [facility] Comment on above: Performed By: #### C MP, CBCA, ####[facility] ([id number])[address] [place] [address] 54099 Eosinophils (Bld) [#/Vol] 0.3 10*3/uL Normal 0.0-0.4 [facility] Comment on above: Performed By: #### C MP, CBCA, ####[facility] ([id number])[address] [place] [address] 90313 Eosinophils/100 WBC (Bld) 4.3 % Normal [facility] Comment on above: Performed By: #### C MP, CBCA, ####[facility] ([id number])[address] [place] [address] 55204 Erythrocyte distribution width (RBC) [Ratio] 15.9 % High 11.5-15.0 [facility] Comment on above: Performed By: #### C FAITH, CBCA, ####[facility] ([id number])[address] [place] [address] 50267 Hematocrit (Bld) [Volume fraction] 31.1 % Low 35-47 [facility] Comment on above: Performed By: #### C FAITH, CBCA, ####[facility] ([id number])[address] [place] [address] 06313 Hemoglobin (Bld) [Mass/Vol] 10.4 g/dL Low 11.7-15.5 [facility] Comment on above: Performed By: #### C FAITH, CBCA, ####[facility] ([id number])[address] [place] [address] 80137 Lymphocytes (Bld) [#/Vol] 2.0 10*3/uL Normal 1.0-3.5 [facility] Comment on above: Performed By: #### C FAITH, CBCA, ####[facility] ([id number])[address] [place] [address] 77173 Lymphocytes/100 WBC (Bld) 29.4 % Normal [facility] Comment on above: Performed By: #### C FAITH, CBCA, ####[facility] ([id number])[address] [place] [address] 41961 MCH (RBC) [Entitic mass] 28.2 pg Normal 27-34 [facility] Comment on above: Performed By: #### C FAITH, CBCA, ####[facility] ([id number])[address] [place] [address] [place] [address] MCHC (RBC) [Mass/Vol] 33.5 g/dL Normal 32-36 [facility] Comment on above: Performed By: #### C FAITH, CBCA, ####[facility] ([id number])[address] [place] [address] 00335 MCV (RBC) [Entitic vol] 84 fL Normal 80-100 [facility] Comment on above: Performed By: #### C FAITH, CBCA, ####[facility] ([id number])[address] [place] [address] 62798 Monocytes (Bld) [#/Vol] 0.8 10*3/uL Normal 0-0.9 [facility] Comment on above: Performed By: #### C FAITH, CBCA, ####[facility] ([id number])[address] [place] [address] 52492 Monocytes/100 WBC (Bld) 12.0 % Normal [facility] Comment on above: Performed By: #### C FAITH, CBCA, ####[facility] ([id number])[address] [place] [address] 80858 Neutrophils/100 WBC (Bld) 53.6 % Normal [facility] Comment on above: Performed By: #### C FAITH, CBCA, ####[facility] ([id number])[address] [place] [address] 93072 Platelet mean volume (Bld) [Entitic vol] 9.1 fL Normal 7-12 [facility] Comment on above: Performed By: #### C FAITH, CBCA, ####[facility] ([id number])[address] [place] [address] 86305 Platelets (Bld) [#/Vol] 244 10*3/uL Normal 150-450 [facility] Comment on above: Performed By: #### C CARMEN CUEVAS, ####[facility] ([id number])[address] [place] [address] 95736 RBC COUNT 3.69 X10E12/L Low 3.80-5.20 [facility] Comment on above: Performed By: #### C CARMEN CUEVAS, ####[facility] ([id number])[address] [place] [address] 20926 WBC (Bld) [#/Vol] 6.9 10*3/uL Normal 4.0-11.0 [facility] Comment on above: Performed By: #### C CARMEN CUEVAS, ####[facility] ([id number])[address] [place] [address] 73686 COMPREHENSIVE METABOLIC PANE [facility] 10-29-2024 Albumin [Mass/Vol] 3.6 g/dL Normal 3.2-5.3 [facility] Comment on above: Performed By: #### C CARMEN CUEVAS, ####[facility] ([id number])[address] [place] [address] 88011 ALP [Catalytic activity/Vol] 87 U/L Normal 39-130 [facility] Comment on above: Performed By: #### C CARMEN CUEVAS, ####[facility] ([id number])[address] [place] [address] 69296 ALT [Catalytic activity/Vol] 17 U/L Normal 0-31 [facility] Comment on above: Performed By: #### C CARMEN CUEVAS, ####[facility] ([id number])[address] [place] [address] 64389 Anion gap [Moles/Vol] 9 mmol/L Normal 5-15 [facility] Comment on above: Performed By: #### C CARMEN CUEVAS, ####[facility] ([id number])[address] [place] [address] [place] [address] AST [Catalytic activity/Vol] 21 U/L Normal 0-41 [facility] Comment on above: Performed By: #### C CARMEN CUEVAS, ####[facility] ([id number])[address] [place] [address] 58097 Bilirubin [Mass/Vol] 0.3 mg/dL Normal 0.3-1.2 [facility] Comment on above: Performed By: #### C CARMEN CUEVAS, ####[facility] ([id number])[address] [place] [address] 07572 Calcium [Mass/Vol] 8.7 mg/dL Normal 8.5-10.5 [facility] Comment on above: Performed By: #### C CARMEN CUEVAS, ####[facility] ([id number])[address] [place] [address] 71897 Chloride [Moles/Vol] 100 mmol/L Normal 98-109 [facility] Comment on above: Performed By: #### CARMEN Maravilla MP, ####[facility] ([id number])[address] [place] [address] [place] [address] CO2 [Moles/Vol] 25 mmol/L Normal 22-32 [facility] Comment on above: Performed By: #### C CARMEN CUEVAS, ####[facility] ([id number])[address] [place] [address] [place] [address] Creatinine [Mass/Vol] 1.75 mg/dL High 0.40-1.00 [facility] Comment on above: Result Comment: METH OD TRACEABLE TO IDMS STANDARD Performed By: #### C CARMEN CUEVAS, ####[facility] ([id number])[address] [place] [address] 17754 GFR/1.73 sq M.predicted among non-blacks MDRD (S/P/Bld) [Vol rate/Area] 29 mL/min/{1.73_m2} Low >59 [facility] Comment on above: Result Comment: Repo rted eGFR is based on theCKD-EPI 2020 equation that doesnot use a race coefficient. Performed By: #### C CARMEN CUEVAS, ####[facility] ([id number])[address] [place] [address] 54116 Glucose [Mass/Vol] 266 mg/dL High 65-99 [facility] Comment on above: Performed By: #### C CARMEN CUEVAS, ####[facility] ([id number])[address] [place] [address] 04253 Potassium [Moles/Vol] 4.1 mmol/L Normal 3.5-5.0 [facility] Comment on above: Performed By: #### C CARMEN CUEVAS, ####[facility] ([id number])[address] [place] [address] 07698 Protein [Mass/Vol] 6.9 g/dL Normal 6.0-8.0 [facility] Comment on above: Performed By: #### C CARMEN CUEVAS, ####[facility] ([id number])[address] [place] [address] 78490 Sodium [Moles/Vol] 134 mmol/L Normal 134-146 [facility] Comment on above: Performed By: #### C CARMEN CUEVAS, ####[facility] ([id number])[address] [place] [address] 09675 Urea nitrogen [Mass/Vol] 37 mg/dL High 5-27 [facility] Comment on above: Performed By: #### C FAITH, CBCA, ####[facility] ([id number])[address] [place] [address] 29396 Glucose Glucometer (BldC) [M ass/Vol]on 10-29-2024 Glucose [Mass/Vol] 206 mg/dL High 65-99 [facility] Glucose [Mass/Vol] 179 mg/dL High 65-99 [facility] Glucose [Mass/Vol] 339 mg/dL High 65-99 [facility] MAGNESIUMon 10-29-2024 Magnesium [Mass/Vol] 1.9 mg/dL Normal 1.8-2.6 [facility] Comment on above: Performed By: #### C FAITH, CBCA, ####[facility] ([id number])[address] [place] [address] 19630 CBC AND AUTO DIFFon 10-28-20 ABSOLUTE BASOPHIL 0.0 X10E9/L Normal 0.0-0.2 [facility] Comment on above: Performed By: #### C NATIVIDAD [facility], ####[facility] ([id number])[address] [place] [address] 00008 ABSOLUTE NEUTROPHIL 4.9 X10E9/L Normal 1.5-6.6 [facility] Comment on above: Performed By: #### C NATIVIDAD CMP, ####[facility] ([id number])[address] [place] [address] 90390 Basophils/100 WBC (Bld) 0.4 % Normal [facility] Comment on above: Performed By: #### C NATIVIDAD, CMP, 65291-6 ####[facility] ([id number])[address] [place] [address] 17090 Eosinophils (Bld) [#/Vol] 0.1 10*3/uL Normal 0.0-0.4 [facility] Comment on above: Performed By: #### C [facility]IV[facility]AD [facility], ####[facility] ([id number])[address] [place] [address] 92115 Eosinophils/100 WBC (Bld) 1.1 % Normal [facility] Comment on above: Performed By: #### Renita HENSON [facility], ####[facility] ([id number])[address] [place] [address] 91155 Erythrocyte distribution width (RBC) [Ratio] 15.5 % High 11.5-15.0 [facility] Comment on above: Performed By: #### C [place]IVIDAD [facility], ####[facility] ([id number])[address] [place] [address] 40234 Hematocrit (Bld) [Volume fraction] 33.5 % Low 35-47 [facility] Comment on above: Performed By: #### Renita HENSON [facility], ####[facility] ([id number])[address] [place] [address] 22125 Hemoglobin (Bld) [Mass/Vol] 11.1 g/dL Low 11.7-15.5 [facility] Comment on above: Performed By: #### C NATIVIDAD [facility], ####[facility] ([id number])[address] [place] [address] 84377 Lymphocytes (Bld) [#/Vol] 2.3 10*3/uL Normal 1.0-3.5 [facility] Comment on above: Performed By: #### Renita HENSON [facility], ####[facility] ([id number])[address] [place] [address] 71376 Lymphocytes/100 WBC (Bld) 27.9 % Normal [facility] Comment on above: Performed By: #### C NATIVIDAD, CMP, ####[facility] ([id number])[address] [place] [address] 18244 MCH (RBC) [Entitic mass] 27.9 pg Normal 27-34 [facility] Comment on above: Performed By: #### Renita EHNSON, CMP, ####[facility] ([id number])[address] [place] [address] 88158 MCHC (RBC) [Mass/Vol] 33.1 g/dL Normal 32-36 [facility] Comment on above: Performed By: #### Renita HENSON CMP, ####[facility] ([id number])[address] [place] [address] 43395 MCV (RBC) [Entitic vol] 84 fL Normal 80-100 [facility] Comment on above: Performed By: #### Renita HENSON CMP, ####[facility] ([id number])[address] [place] [address] 30101 Monocytes (Bld) [#/Vol] 1.0 10*3/uL High 0-0.9 [facility] Comment on above: Performed By: #### Renita HENSON CMP, ####[facility] ([id number])[address] [place] [address] 39516 Monocytes/100 WBC (Bld) 12.0 % Normal [facility] Comment on above: Performed By: #### Renita HENSON, CMP, ####[facility] ([id number])[address] [place] [address] 31185 Neutrophils/100 WBC (Bld) 58.6 % Normal [facility] Comment on above: Performed By: #### Renita HENSON, CMP, ####[facility] ([id number])[address] [place] [address] 48069 Platelet mean volume (Bld) [Entitic vol] 9.0 fL Normal 7-12 [facility] Comment on above: Performed By: #### C NATIVIDAD, CMP, 50760-9 ####[facility] ([id number])[address] [place] [address] 38990 Platelets (Bld) [#/Vol] 241 10*3/uL Normal 150-450 [facility] Comment on above: Performed By: #### C BCA, CMP, ####[facility] ([id number])[address] [place] [address] 47534 RBC COUNT 3.97 X10E12/L Normal 3.80-5.20 [facility] Comment on above: Performed By: #### C NATIVIDAD, CMP, ####[facility] ([id number])[address] [place] [address] 82732 WBC (Bld) [#/Vol] 8.3 10*3/uL Normal 4.0-11.0 [facility] Comment on above: Performed By: #### C BCA, CMP, 60865-2 ####[facility] ([id number])[address] [place] [address] 49176 COMPREHENSIVE METABOLIC PANE [facility] 10-28-2024 Albumin [Mass/Vol] 3.9 g/dL Normal 3.2-5.3 [facility] Comment on above: Performed By: #### C BCA, CMP, ####[facility] ([id number])[address] [place] [address] 11624 ALP [Catalytic activity/Vol] 95 U/L Normal 39-130 [facility] Comment on above: Performed By: #### C BCA, CMP, ####[facility] ([id number])[address], [place] [address] ALT [Catalytic activity/Vol] 15 U/L Normal 0-31 [facility] Comment on above: Performed By: #### C NATIVIDAD CMP, ####[facility] ([id number])[address] [place] [address], [place] [address] Anion gap [Moles/Vol] 11 mmol/L Normal 5-15 [facility] Comment on above: Performed By: #### C NATIVIDAD CMP, ####[facility] ([id number])[address] [place] [address], [place] [address] AST [Catalytic activity/Vol] 24 U/L Normal 0-41 [facility] Comment on above: Performed By: #### C RUBEN HENSON, ####[facility] ([id number])[address] [place] [address], [place] [address] Bilirubin [Mass/Vol] 0.5 mg/dL Normal 0.3-1.2 [facility] Comment on above: Performed By: #### C NATIVIDAD CMP, ####[facility] ([id number])[address] [place] [address], [place] [address] Calcium [Mass/Vol] 9.5 mg/dL Normal 8.5-10.5 [facility] Comment on above: Performed By: #### C NATIVIDAD CMP, ####[facility] ([id number])[address] [place] [address], [place] [address] Chloride [Moles/Vol] 100 mmol/L Normal 98-109 [facility] Comment on above: Performed By: #### C NATIVIDAD CMP, ####[facility] ([id number])[address] [place] [address], [place] [address] CO2 [Moles/Vol] 23 mmol/L Normal 22-32 [facility] Comment on above: Performed By: #### C BCA CMP, ####[facility] ([id number])[address] [place] [address] 34359 Creatinine [Mass/Vol] 1.59 mg/dL High 0.40-1.00 [facility] Comment on above: Result Comment: METH OD TRACEABLE TO IDMS STANDARD Performed By: #### C RUBEN HENSON, ####[facility] ([id number])[address] [place] [address] 46813 GFR/1.73 sq M.predicted among non-blacks MDRD (S/P/Bld) [Vol rate/Area] 33 mL/min/{1.73_m2} Low >59 [facility] Comment on above: Result Comment: Repo rted eGFR is based on theCKD-EPI 2020 equation that doesnot use a race coefficient. Performed By: #### C NATIVIDAD [facility], ####[facility] ([id number])[address] [place] [address] 57028 Glucose [Mass/Vol] 162 mg/dL High 65-99 [facility] Comment on above: Performed By: #### C [facility]IVIDAD [facility], ####[facility] ([id number])[address] [place] [address] 45620 Potassium [Moles/Vol] 4.1 mmol/L Normal 3.5-5.0 [facility] Comment on above: Performed By: #### C [facility]IVIDAD [facility], ####[facility] ([id number])[address] [place] [address] 99977 Protein [Mass/Vol] 7.7 g/dL Normal 6.0-8.0 [facility] Comment on above: Performed By: #### C RUBEN HENSON, ####[facility] ([id number])[address] [place] [address] 12638 Sodium [Moles/Vol] 134 mmol/L Normal 134-146 [facility] Comment on above: Performed By: #### C NATIVIDAD, CMP, 30432-6 ####[facility] ([id number])[address] [place] [address] 18961 Urea nitrogen [Mass/Vol] 24 mg/dL Normal 5-27 [facility] Comment on above: Performed By: #### C NATIVIDAD, CMP, 30254-6 ####[facility] ([id number])[address] [place] [address] 76887 Glucose Glucometer (BldC) [M ass/Vol]on 10-28-2024 Glucose [Mass/Vol] 216 mg/dL High 65-99 [facility] MAGNESIUMon 10-28-2024 Magnesium [Mass/Vol] 1.8 mg/dL Normal 1.8-2.6 [facility] Comment on above: Performed By: #### C NATIVIDAD, RUBEN, 89601-8 ####[facility] ([id number])[address] [place] [address] 40957 XR CHEST 1 VWon 10-28-2024 XR CHEST 1 VW Normal [facility] aPTT Coag (PPP) [Time]on aPTT Coag (Bld) [Time] 27 s Normal 26-37 [facility] Comment on above: Result Comment: NEW REFERENCE RANGE Performed By: #### 1 4979-9 ####[facility] ([id number])[address] [place] [address] 44415 CBC AND AUTO DIFFon 10-27-20 24 ABSOLUTE BASOPHIL 0.0 X10E9/L Normal 0.0-0.2 [facility] Comment on above: Performed By: #### C MP, CBCA ####[facility] ([id number])[address] [place] [address] 96945 ABSOLUTE NEUTROPHIL 8.4 X10E9/L High 1.5-6.6 [facility] Comment on above: Performed By: #### C MP, CBCA ####[facility] ([id number])[address] [place] [address] 40110 Basophils/100 WBC (Bld) 0.4 % Normal [facility] Comment on above: Performed By: #### C MP, CBCA ####[facility] ([id number])[address] [place] [address] 22013 Eosinophils (Bld) [#/Vol] 0.0 10*3/uL Normal 0.0-0.4 [facility] Comment on above: Performed By: #### C MP, CBCA ####[facility] ([id number])[address] [place] [address] 44714 Eosinophils/100 WBC (Bld) 0.1 % Normal [facility] Comment on above: Performed By: #### C MP, CBCA ####[facility] ([id number])[address] [place] [address] [place] [address] Erythrocyte distribution width (RBC) [Ratio] 15.7 % High 11.5-15.0 [facility] Comment on above: Performed By: #### C MP, CBCA ####[facility] ([id number])[address] [place] [address] 80319 Hematocrit (Bld) [Volume fraction] 36.1 % Normal 35-47 [facility] Comment on above: Performed By: #### C MP, CBCA ####[facility] ([id number])[address] [place] [address] 52505 Hemoglobin (Bld) [Mass/Vol] 11.8 g/dL Normal 11.7-15.5 [facility] Comment on above: Performed By: #### C MP, CBCA ####[facility] ([id number])[address] [place] [address] 32259 Lymphocytes (Bld) [#/Vol] 0.8 10*3/uL Low 1.0-3.5 [facility] Comment on above: Performed By: #### C MP, CBCA ####[facility] ([id number])[address] [place] [address] 67925 Lymphocytes/100 WBC (Bld) 8.2 % Normal [facility] Comment on above: Performed By: #### C MP, CBCA ####[facility] ([id number])[address] [place] [address] 23907 MCH (RBC) [Entitic mass] 27.6 pg Normal 27-34 [facility] Comment on above: Performed By: #### C MP, CBCA ####[facility] ([id number])[address] [place] [address] 77623 MCHC (RBC) [Mass/Vol] 32.8 g/dL Normal 32-36 [facility] Comment on above: Performed By: #### C MP, CBCA ####[facility] ([id number])[address] [place] [address] 11184 MCV (RBC) [Entitic vol] 84 fL Normal 80-100 [facility] Comment on above: Performed By: #### C MP, CBCA ####[facility] ([id number])[address] [place] [address] 87830 Monocytes (Bld) [#/Vol] 0.7 10*3/uL Normal 0-0.9 [facility] Comment on above: Performed By: #### C MP, CBCA ####[facility] ([id number])[address] [place] [address] 19901 Monocytes/100 WBC (Bld) 7.4 % Normal [facility] Comment on above: Performed By: #### C MP, CBCA ####[facility] ([id number])[address] [place] [address] 50750 Neutrophils/100 WBC (Bld) 83.9 % Normal [facility] Comment on above: Performed By: #### C FAITH, CBCA ####[facility] ([id number])[address] [place] [address] 95149 Platelet mean volume (Bld) [Entitic vol] 8.4 fL Normal 7-12 [facility] Comment on above: Performed By: #### C MP, CBCA ####[facility] ([id number])[address] [place] [address] 14056 Platelets (Bld) [#/Vol] 282 10*3/uL Normal 150-450 [facility] Comment on above: Performed By: #### C FAITH, CBCA ####[facility] ([id number])[address] [place] [address] 03794 RBC COUNT 4.29 X10E12/L Normal 3.80-5.20 [facility] Comment on above: Performed By: #### C FAITH, CBCA ####[facility] ([id number])[address] [place] [address] 99727 WBC (Bld) [#/Vol] 10.0 10*3/uL Normal 4.0-11.0 [facility] Comment on above: Performed By: #### C MP, CBCA ####[facility] ([id number])[address] [place] [address] [place] [address] COMPREHENSIVE METABOLIC PANE [facility] 10-27-2024 Albumin [Mass/Vol] 4.3 g/dL Normal 3.2-5.3 [facility] Comment on above: Performed By: #### C MP, CBCA ####[facility] ([id number])[address] [place] [id number] ALP [Catalytic activity/Vol] 108 U/L Normal 39-130 [facility] Comment on above: Performed By: #### C MP, CBCA ####[facility] ([id number])[address] [place] [address], [place] [address] ALT [Catalytic activity/Vol] 17 U/L Normal 0-31 [facility] Comment on above: Performed By: #### C MP, CBCA ####[facility] ([id number])[address] [place] [address], [place] [address] Anion gap [Moles/Vol] 13 mmol/L Normal 5-15 [facility] Comment on above: Performed By: #### C FAITH, CBCA ####[facility] ([id number])[address] [place] [address], [place] [address] AST [Catalytic activity/Vol] 27 U/L Normal 0-41 [facility] Comment on above: Performed By: #### C FAITH, CBCA ####[facility] ([id number])[address] [place] [address], [place] [address] Bilirubin [Mass/Vol] 0.4 mg/dL Normal 0.3-1.2 [facility] Comment on above: Performed By: #### C FAITH, CBCA ####[facility] ([id number])[address] [place] [address], [place] [address] Calcium [Mass/Vol] 9.7 mg/dL Normal 8.5-10.5 [facility] Comment on above: Performed By: #### C FAITH, CBCA ####[facility] ([id number])[address] [place] [address], [place] [address] Chloride [Moles/Vol] 96 mmol/L Low 98-109 [facility] Comment on above: Performed By: #### C FAITH, CBCA ####[facility] ([id number])[address] [place] [address], [place] [address] CO2 [Moles/Vol] 25 mmol/L Normal 22-32 [facility] Comment on above: Performed By: #### C CARMEN CUEVAS ####[facility] ([id number])[address] [place] [address] 32535 Creatinine [Mass/Vol] 1.44 mg/dL High 0.40-1.00 [facility] Comment on above: Result Comment: METH OD TRACEABLE TO IDMS STANDARD Performed By: #### C CARMEN CUEVAS ####[facility] ([id number])[address] [place] [address] 47678 GFR/1.73 sq M.predicted among non-blacks MDRD (S/P/Bld) [Vol rate/Area] 37 mL/min/{1.73_m2} Low >59 [facility] Comment on above: Result Comment: Repo rted eGFR is based on theCKD-EPI 2020 equation that doesnot use a race coefficient. Performed By: #### C CARMEN CUEVAS ####[facility] ([id number])[address] [place] [address] 25973 Glucose [Mass/Vol] 137 mg/dL High 65-99 [facility] Comment on above: Performed By: #### C CARMEN CUEVAS ####[facility] ([id number])[address] [place] [address] 70252 Potassium [Moles/Vol] 3.8 mmol/L Normal 3.5-5.0 [facility] Comment on above: Performed By: #### C CARMEN CUEVAS ####[facility] ([id number])[address] [place] [address] [place] [address] Protein [Mass/Vol] 8.4 g/dL High 6.0-8.0 [facility] Comment on above: Performed By: #### C CARMEN CUEVAS ####[facility] ([id number])[address] [place] [address] 36537 Sodium [Moles/Vol] 134 mmol/L Normal 134-146 [facility] Comment on above: Performed By: #### C FAITH CBCA ####[facility] ([id number])[address] [place] [address] 88602 Urea nitrogen [Mass/Vol] 22 mg/dL Normal 5-27 [facility] Comment on above: Performed By: #### C FAITH, CBCA ####[facility] ([id number])[address] [place] [address] ABDOMEN AND PELVIS WO CON Ton 10-27-2024 CT ABDOMEN AND PELVIS WO CONT Normal [facility] Glucose Glucometer (BldC) [M ass/Vol]on 10-27-2024 Glucose [Mass/Vol] 157 mg/dL High 65-99 [facility] Glucose [Mass/Vol] 117 mg/dL High 65-99 [facility] Lactate (P obed) [Moles/Vol]o n 10-27-2024 LACTATE W/REFLEX 1.8 mmol/L Normal 0.4-2.[address] [facility] Comment on above: Result Comment: Resu lt did not trigger repeat Lactate,re-order if needed. Performed By: #### 3 2132- ####[facility] ([id number])[address] [place] [address] 95533 URINE CULTUREon 10-27-2024 Bacteria identified Cx Nom (U) CULTURE RESULTS 10-50,000 ORGANISMS/mL NORMAL UROGENITAL BAILEY Normal [facility] Comment on above: Performed By: #### 6 30-4 ####[facility] ([id number])[address] [address] URN MACROSCOPIC NURon 2023 BILIRUBIN MARYJO Negative Normal NEG [facility] Comment on above: Performed By: #### N UM ####[facility] ([id number])[address] [place] [address] 05230 BLOOD/HGB MARYJO MODERATE Abnormal NEG [facility] Comment on above: Performed By: #### N UM ####[facility] ([id number])[address] [place] [address] [place] [address] GLUCOSE MARYJO Negative Normal NEG [facility] Comment on above: Performed By: #### N UM ####[facility] ([id number])[address] [place] [address] [place] [address] KETONES MARYJO 15 mg/dL Abnormal NEG [facility] Comment on above: Performed By: #### N UM ####[facility] ([id number])[address] [place] [address] 44533 LEUKOCYTE ESTERASE MARYJO Small Abnormal NEG [facility] Comment on above: Performed By: #### N UM ####[facility] ([id number])[address] [place] [address] [place] [address] NITRITE MARYJO Negative Normal NEG [facility] Comment on above: Performed By: #### N UM ####[facility] ([id number])[address] [place] [address] 80955 PH MARYJO 5.5 Normal 5.0-8.5 [facility] Comment on above: Performed By: #### N UM ####[facility] ([id number])[address] [place] [address] 60654 PROTEIN MARYJO 100 mg/dL Abnormal NEG [facility] Comment on above: Performed By: #### N UM ####[facility] ([id number])[address] [place] [address] [place] [address] SPECIFIC GRAVITY MARYJO 1.025 Normal 1.003-1.[address] [place] [address] Comment on above: Performed By: #### N UM ####[facility] ([id number])[address] [place] [address] [place] [address] UROBILINOGEN MARYJO 0.2 eu/dL Normal <1.[address] [facility] Comment on above: Performed By: #### N UM ####[facility] ([id number])[address] [place] [address], [place] [address] BASIC METABOLIC PANLon 10-11 Anion gap [Moles/Vol] 10 mmol/L Normal 5-15 [facility] Comment on above: Performed By: #### C NATIVIDAD, 96070-1, BMP ####[facility] ([id number])[address] [place] [address] 06017 Calcium [Mass/Vol] 9.4 mg/dL Normal 8.5-10.5 [facility] Comment on above: Performed By: #### C NATIVIDAD, 14973-2, BMP ####[facility] ([id number])[address] [place] [address] 97753 Chloride [Moles/Vol] 103 mmol/L Normal 98-109 [facility] Comment on above: Performed By: #### C NATIVIDAD, 43511-5, BMP ####[facility] ([id number])[address] [place] [address] 73545 CO2 [Moles/Vol] 23 mmol/L Normal 22-32 [facility] Comment on above: Performed By: #### Renita HENSON, 25410-7, BMP ####[facility] ([id number])[address] [place] [address] [place] [address] Creatinine [Mass/Vol] 1.49 mg/dL High 0.40-1.00 [facility] Comment on above: Result Comment: METH OD TRACEABLE TO IDMS STANDARD Performed By: #### C NATIVIDAD, 17999-6, BMP ####[facility] ([id number])[address] [place] [address] 91807 GFR/1.73 sq M.predicted among non-blacks MDRD (S/P/Bld) [Vol rate/Area] 36 mL/min/{1.73_m2} Low >59 [facility] Comment on above: Result Comment: Repo rted eGFR is based on theD-EPI 2020 equation that doesnot use a race coefficient. Performed By: #### Renita HENSON, 28472-6, BMP ####[facility] ([id number])[address] [place] [address] 91465 Glucose [Mass/Vol] 185 mg/dL High 65-99 [facility] Comment on above: Performed By: #### Renita HENSON 27706-1, BMP ####[facility] ([id number])[address] [place] [address] 99677 Potassium [Moles/Vol] 4.5 mmol/L Normal 3.5-5.0 [facility] Comment on above: Result Comment: SPEC IMEN HEMOLYZED, RESULTS INCREASED Performed By: #### Renita HENSON, 56720-7, BMP ####[facility] ([id number])[address] [place] [address] 01470 Sodium [Moles/Vol] 136 mmol/L Normal 134-146 [facility] Comment on above: Performed By: #### Renita HENSON, 38944-0, BMP ####[facility] ([id number])[address] [place] [address] 78331 Urea nitrogen [Mass/Vol] 23 mg/dL Normal 5-27 [facility] Comment on above: Performed By: #### Renita HENSON 18064-8, BMP ####[facility] ([id number])[address] [place] [address] 43504 CBC AND AUTO DIFFon 10-11-20 24 ABSOLUTE BASOPHIL 0.1 X10E9/L Normal 0.0-0.2 [facility] Comment on above: Performed By: #### Renita HENSON 76219-9, BMP ####[facility] ([id number])[address] [place] [address] [place] [address] ABSOLUTE NEUTROPHIL 5.5 X10E9/L Normal 1.5-6.6 [facility] Comment on above: Performed By: #### Renita HENSON, 85952-3, BMP ####[facility] ([id number])[address] [place] [address] 84815 Basophils/100 WBC (Bld) 0.8 % Normal [facility] Comment on above: Performed By: #### Renita HENSON 75621-9, BMP ####[facility] ([id number])[address] [place] [address] 96819 Eosinophils (Bld) [#/Vol] 0.2 10*3/uL Normal 0.0-0.4 [facility] Comment on above: Performed By: #### Renita HENSON 79128-9, BMP ####[facility] ([id number])[address] [place] [address] 53683 Eosinophils/100 WBC (Bld) 2.2 % Normal [facility] Comment on above: Performed By: #### Renita HENSON 43536-3, BMP ####[facility] ([id number])[address] [place] [address] 29744 Erythrocyte distribution width (RBC) [Ratio] 15.8 % High 11.5-15.0 [facility] Comment on above: Performed By: #### Renita HENSON 88190-8, BMP ####[facility] ([id number])[address] [place] [address] 88396 Hematocrit (Bld) [Volume fraction] 32.2 % Low 35-47 [facility] Comment on above: Performed By: #### Renita EHNSON 54173-9, BMP ####[facility] ([id number])[address] [place] [address] 26301 Hemoglobin (Bld) [Mass/Vol] 10.7 g/dL Low 11.7-15.5 [facility] Comment on above: Performed By: #### Renita HENSON 89019-1, BMP ####[facility] ([id number])[address] [place] [address] 34599 Lymphocytes (Bld) [#/Vol] 1.9 10*3/uL Normal 1.0-3.5 [facility] Comment on above: Performed By: #### Renita HENSON 23622-5, BMP ####[facility] ([id number])[address] [place] [address] 54902 Lymphocytes/100 WBC (Bld) 22.1 % Normal [facility] Comment on above: Performed By: #### Renita HENSON 63604-1, BMP ####[facility] ([id number])[address] [place] [address] 82805 MCH (RBC) [Entitic mass] 28.1 pg Normal 27-34 [facility] Comment on above: Performed By: #### Renita HENSON 02854-6, BMP ####[facility] ([id number])[address] [place] [address] 03920 MCHC (RBC) [Mass/Vol] 33.1 g/dL Normal 32-36 [facility] Comment on above: Performed By: #### Renita HENSON 71843-8, BMP ####[facility] ([id number])[address] [place] [address] 37204 MCV (RBC) [Entitic vol] 85 fL Normal 80-100 [facility] Comment on above: Performed By: #### Renita HENSON 50189-8, BMP ####[facility] ([id number])[address] [place] [address] 73564 Monocytes (Bld) [#/Vol] 1.0 10*3/uL High 0-0.9 [facility] Comment on above: Performed By: #### Renita HENSON, 66014-5, BMP ####[facility] ([id number])[address] [place] [address] 79308 Monocytes/100 WBC (Bld) 11.6 % Normal [facility] Comment on above: Performed By: #### Renita HENSON, 69220-4, BMP ####[facility] ([id number])[address] [place] [address] 45842 Neutrophils/100 WBC (Bld) 63.3 % Normal [facility] Comment on above: Performed By: #### Renita HENSON, 28655-5, BMP ####[facility] ([id number])[address] [place] [address] 36921 Platelet mean volume (Bld) [Entitic vol] 8.4 fL Normal 7-12 [facility] Comment on above: Performed By: #### Renita HENSON, 67762-3, BMP ####[facility] ([id number])[address] [place] [address] 31044 Platelets (Bld) [#/Vol] 368 10*3/uL Normal 150-450 [facility] Comment on above: Performed By: #### Renita HENSON, 33246-7, BMP ####[facility] ([id number])[address] [place] [address] 06457 RBC COUNT 3.79 X10E12/L Low 3.80-5.20 [facility] Comment on above: Performed By: #### Renita HENSON, 98298-4, BMP ####[facility] ([id number])[address] [place] [address] 63133 WBC (Bld) [#/Vol] 8.7 10*3/uL Normal 4.0-11.0 [facility] Comment on above: Performed By: #### Renita HENSON, 18398-7, BMP ####[facility] ([id number])[address] [place] [address] ABDOMEN AND PELVIS WO CON Ton 10-11-2024 CT ABDOMEN AND PELVIS WO CONT Normal [facility] Troponin I.cardiac High sens itivity method [Mass/Vol]on 10-11-2024 1 HOUR TROP I, HIGH SENSITIVITY 20 ng/L High <16 [facility] Comment on above: Result Comment: Elev ations of hs-Troponin may be due to causesother than myocardial ischemia.Recommend serial hs-Troponin testing be performed.For the initial evaluation and management of chestpain patients, refer to the algorithms linked below.Emergency Patient:[email or web address]:[email or web address] Performed By: #### 8 9579-7 ####[facility] ([id number])[address] [place] [address] 50447 TROPONIN I, HIGH SENSITIVITY 21 ng/L High <16 [facility] Comment on above: Result Comment: Elev ations of hs-Troponin may be due to causesother than myocardial ischemia.Recommend serial hs-Troponin testing be performed.For the initial evaluation and management of chestpain patients, refer to the algorithms linked below.Emergency Patient:[email or web address]:[email or web address] Performed By: #### C NATIVIDAD, 65588-6, BMP ####[facility] ([id number])[address] [place] [address] 74255 URINE CULTUREon 10-10-2024 Bacteria identified Cx Nom (U) CULTURE RESULTS MULTIPLE SPECIES PRESENT. PROBABLE COLLECTION CONTAMINATION. SUGGEST REPEAT SPECIMEN. Normal [facility] Comment on above: Performed By: #### 6 30-4 ####[facility] ([id number])[address] [facility] [address], [address], [place] [address] URN MACROSCOPIC NURon 2023 BILIRUBIN MARYJO Negative Normal NEG [facility] Comment on above: Performed By: #### N UM ####[facility] ([id number])[address] [place] [address], [place] [address] BLOOD/HGB MARYJO Small Abnormal NEG [facility] Comment on above: Performed By: #### N UM ####[facility] ([id number])[address] [place] [address], [place] [address] GLUCOSE MARYJO Negative Normal NEG [facility] Comment on above: Performed By: #### N UM ####[facility] ([id number])[address] [place] [address], [place] [address] KETONES MARYJO Trace Abnormal NEG [facility] Comment on above: Performed By: #### N UM ####[facility] ([id number])[address] [place] [address], [place] [address] LEUKOCYTE ESTERASE MARYJO Large Abnormal NEG [facility] Comment on above: Performed By: #### N UM ####[facility] ([id number])[address] [place] [address], [place] [address] NITRITE MARYJO Positive Abnormal NEG [facility] Comment on above: Performed By: #### N UM ####[facility] ([id number])[address] [place] [address] [place] [address] PH MARYJO 8.5 Normal 5.0-8.5 [facility] Comment on above: Performed By: #### N UM ####[facility] ([id number])[address] [place] [address] 99858 PROTEIN MARYJO >=300 Abnormal NEG [facility] Comment on above: Performed By: #### N UM ####[facility] ([id number])[address] [place] [address] 83225 SPECIFIC GRAVITY MARYJO 1.015 Normal 1.003-1.03 5 [facility] Comment on above: Performed By: #### N UM ####[facility] ([id number])[address] [place] [address] 05308 UROBILINOGEN MARYJO 0.2 eu/dL Normal <1.[address] [facility] Comment on above: Performed By: #### N UM ####[facility] ([id number])[address] [place] [address] 34522 CBC AND AUTO DIFFon 10-10-20 24 ABSOLUTE BASOPHIL 0.0 X10E9/L Normal 0.0-0.2 [facility] Comment on above: Performed By: #### C FAITH, CBCA, 95634-6 ####[facility] ([id number])[address] [place] [address] 82352 ABSOLUTE NEUTROPHIL 6.0 X10E9/L Normal 1.5-6.6 [facility] Comment on above: Performed By: #### C MP, CBCA, ####[facility] ([id number])[address] [place] [address] 86146 Basophils/100 WBC (Bld) 0.3 % Normal [facility] Comment on above: Performed By: #### C MP, CBCA, ####[facility] ([id number])[address] [place] [address] 13389 Eosinophils (Bld) [#/Vol] 0.3 10*3/uL Normal 0.0-0.4 [facility] Comment on above: Performed By: #### C MP, CBCA, ####[facility] ([id number])[address] [place] [address] 37303 Eosinophils/100 WBC (Bld) 2.7 % Normal [facility] Comment on above: Performed By: #### C FAITH, CBCA, ####[facility] ([id number])[address] [place] [address] 91262 Erythrocyte distribution width (RBC) [Ratio] 15.9 % High 11.5-15.0 [facility] Comment on above: Performed By: #### C FAITH, CBCA, ####[facility] ([id number])[address] [place] [address] 31579 Hematocrit (Bld) [Volume fraction] 29.0 % Low 35-47 [facility] Comment on above: Performed By: #### C FAITH, CBCA, ####[facility] ([id number])[address] [place] [address] 95412 Hemoglobin (Bld) [Mass/Vol] 9.5 g/dL Low 11.7-15.5 [facility] Comment on above: Performed By: #### C FAITH, CBCA, ####[facility] ([id number])[address] [place] [address] 41249 Lymphocytes (Bld) [#/Vol] 3.0 10*3/uL Normal 1.0-3.5 [facility] Comment on above: Performed By: #### C FAITH, CBCA, ####[facility] ([id number])[address] [place] [address] 10956 Lymphocytes/100 WBC (Bld) 28.8 % Normal [facility] Comment on above: Performed By: #### C FAITH, CBCA, ####[facility] ([id number])[address] [place] [address] 36314 MCH (RBC) [Entitic mass] 27.7 pg Normal 27-34 [facility] Comment on above: Performed By: #### C FAITH CBCA, ####[facility] ([id number])[address] [place] [address] 78940 MCHC (RBC) [Mass/Vol] 32.7 g/dL Normal 32-36 [facility] Comment on above: Performed By: #### C FAITH CBCA, ####[facility] ([id number])[address] [place] [address] 66915 MCV (RBC) [Entitic vol] 85 fL Normal 80-100 [facility] Comment on above: Performed By: #### C FAITH CBCDanielle, ####[facility] ([id number])[address] [place] [address] 96856 Monocytes (Bld) [#/Vol] 1.0 10*3/uL High 0-0.9 [facility] Comment on above: Performed By: #### C FAITH CBCA, ####[facility] ([id number])[address] [place] [address] 79076 Monocytes/100 WBC (Bld) 9.8 % Normal [facility] Comment on above: Performed By: #### C FAITH CBCA, ####[facility] ([id number])[address] [place] [address] 03965 Neutrophils/100 WBC (Bld) 58.4 % Normal [facility] Comment on above: Performed By: #### C FAITH CBCA, ####[facility] ([id number])[address] [place] [address] 75750 Platelet mean volume (Bld) [Entitic vol] 8.7 fL Normal 7-12 [facility] Comment on above: Performed By: #### C CARMEN CUEVAS, ####[facility] ([id number])[address] [place] [address] 43951 Platelets (Bld) [#/Vol] 189 10*3/uL Normal 150-450 [facility] Comment on above: Performed By: #### C FAITH CBCDanielle, ####[facility] ([id number])[address] [place] [address] 49251 RBC COUNT 3.43 X10E12/L Low 3.80-5.20 [facility] Comment on above: Performed By: #### C FAITH CBCDanielle, ####[facility] ([id number])[address] [place] [address] 32312 WBC (Bld) [#/Vol] 10.2 10*3/uL Normal 4.0-11.0 [facility] Comment on above: Performed By: #### C CARMEN CUEVAS, ####[facility] ([id number])[address] [place] [address] 46473 COMPREHENSIVE METABOLIC PANE Dickson 08-24-2024 Albumin [Mass/Vol] 3.0 g/dL Low 3.2-5.3 [facility] Comment on above: Performed By: #### C FAITH CBCDanielle, ####[facility] ([id number])[address] [place] [address] 17625 ALP [Catalytic activity/Vol] 70 U/L Normal 39-130 [facility] Comment on above: Performed By: #### C FAITH CBCA, ####[facility] ([id number])[address] [place] [address] 12274 ALT [Catalytic activity/Vol] 15 U/L Normal 0-31 [facility] Comment on above: Performed By: #### C CARMEN CUEVAS, ####[facility] ([id number])[address] [place] [address], [place] [address] Anion gap [Moles/Vol] 7 mmol/L Normal 5-15 [facility] Comment on above: Performed By: #### C CARMEN CUEVAS, ####[facility] ([id number])[address] [place] [address] [place] [address] AST [Catalytic activity/Vol] 20 U/L Normal 0-41 [facility] Comment on above: Performed By: #### C CARMEN CUEVAS, ####[facility] ([id number])[address] [place] [address] 58923 Bilirubin [Mass/Vol] 0.8 mg/dL Normal 0.3-1.2 [facility] Comment on above: Performed By: #### C CARMEN CUEVAS, ####[facility] ([id number])[address] [place] [address] 82747 Calcium [Mass/Vol] 8.4 mg/dL Low 8.5-10.5 [facility] Comment on above: Performed By: #### C CARMEN CUEVAS, ####[facility] ([id number])[address] [place] [address] [place] [address] Chloride [Moles/Vol] 105 mmol/L Normal 98-109 [facility] Comment on above: Performed By: #### C CARMEN CUEVAS, ####[facility] ([id number])[address] [place] [address] [place] [address] CO2 [Moles/Vol] 24 mmol/L Normal 22-32 [facility] Comment on above: Performed By: #### CARMEN Maravilla MP, ####[facility] ([id number])[address] [place] [address] [place] [address] Creatinine [Mass/Vol] 1.36 mg/dL High 0.40-1.00 [facility] Comment on above: Result Comment: METH OD TRACEABLE TO IDMS STANDARD Performed By: #### C CARMEN CUEVAS, ####[facility] ([id number])[address] [place] [address] 64904 GFR/1.73 sq M.predicted among non-blacks MDRD (S/P/Bld) [Vol rate/Area] 40 mL/min/{1.73_m2} Low >59 [facility] Comment on above: Result Comment: Repo rted eGFR is based on theCKD-EPI 2020 equation that doesnot use a race coefficient. Performed By: #### C CARMEN CUEVAS, ####[facility] ([id number])[address] [place] [address] 88752 Glucose [Mass/Vol] 215 mg/dL High 65-99 [facility] Comment on above: Performed By: #### C CARMEN CUEVAS, ####[facility] ([id number])[address] [place] [address] 24666 Potassium [Moles/Vol] 4.7 mmol/L Normal 3.5-5.0 [facility] Comment on above: Performed By: #### C CARMEN CUEVAS, ####[facility] ([id number])[address] [place] [address] 98515 Protein [Mass/Vol] 6.0 g/dL Normal 6.0-8.0 [facility] Comment on above: Performed By: #### C CARMEN CUEVAS, ####[facility] ([id number])[address] [place] [address] 12340 Sodium [Moles/Vol] 136 mmol/L Normal 134-146 [facility] Comment on above: Performed By: #### C FAITH CBCA, 31639-7 ####[facility] ([id number])[address] [place] [address] 64796 Urea nitrogen [Mass/Vol] 16 mg/dL Normal 5-27 [facility] Comment on above: Performed By: #### C FAITH, CBCA, ####[facility] ([id number])[address] [place] [address] 44726 Glucose Glucometer (BldC) [M ass/Vol]on 08-24-2024 Glucose [Mass/Vol] 358 mg/dL High 65-99 [facility] MAGNESIUMon 08-24-2024 Magnesium [Mass/Vol] 2.5 mg/dL Normal 1.8-2.6 [facility] Comment on above: Performed By: #### C FAITH CBCA, 70102-7 ####[facility] ([id number])[address] [place] [address] 17649 BLOOD CULTUREon 08-23-2024 Bacteria identified Aer cx Nom (Bld) SPECIMEN NOTES L HAND CULTURE RESULTS NO GROWTH 5 DAYS Normal [facility] Comment on above: Performed By: #### 1 7928-3 ####[facility] ([id number])[address] [place] [address] 63850 Bacteria identified Aer cx Nom (Bld) SPECIMEN NOTES R HAND SOV CULTURE RESULTS NO GROWTH 5 DAYS Normal [facility] Comment on above: Performed By: #### 1 7928-3 ####[facility] ([id number])[address] [address] CBC AND AUTO DIFFon 08-23-20 24 Band form neutrophils/100 WBC (Bld) 1.0 % Normal [facility] Comment on above: Performed By: #### 2 639-3, 2157-6, CBCA, CMP, 3040-3, 50031-5, 26775-9, 61909-1, 5643-2 ####[facility] ([id number])[address] [place] [address] 11575 Erythrocyte distribution width (RBC) [Ratio] 15.7 % High 11.5-15.0 [facility] Comment on above: Performed By: #### 2 639-3, 2156-6, CBCA, CMP, 3040-3, 41393-9, 41072-8, 82998-7, 5643-2 ####[facility] ([id number])[address] [place] [address] 92855 Hematocrit (Bld) [Volume fraction] 36.1 % Normal 35-47 [facility] Comment on above: Performed By: #### 2 639-3, 6, CBCA, CMP, 3040-3, 24255-4, 13169-9, 15450-3, 5643-2 ####[facility] ([id number])[address] [place] [address] 40604 Hemoglobin (Bld) [Mass/Vol] 11.5 g/dL Low 11.7-15.5 [facility] Comment on above: Performed By: #### 2 639-3, 6, CBCA, CMP, 3040-3, 11049-7, 83358-1, 18423-7, 5643-2 ####[facility] ([id number])[address] [place] [address] 56752 LYMPHOCYTE, ATYPICAL 1.0 % Normal [facility] Comment on above: Performed By: #### 2 639-3, 6, CBCA, CMP, 3040-3, 71984-9, 35540-0, 52038-0, 5643-2 ####[facility] ([id number])[address] [place] [address] 48078 Lymphocytes (Bld) [#/Vol] 2.6 10*3/uL Normal 1.0-3.5 [facility] Comment on above: Performed By: #### 2 639-3, 2156-6, CBCA, CMP, 3040-3, 39009-3, 50963-8, 54553-6, 5643-2 ####[facility] ([id number])[address] [place] [address] 31965 Lymphocytes/100 WBC (Bld) 18.0 % Normal [facility] Comment on above: Performed By: #### 2 639-3, 6, CBCA, CMP, 3040-3, 84182-5, 12274-6, 13048-4, 5643-2 ####[facility] ([id number])[address] [place] [address] 86163 MCH (RBC) [Entitic mass] 27.2 pg Normal 27-34 [facility] Comment on above: Performed By: #### 2 639-3, 6, CBCA, CMP, 3040-3, 52603-4, 41406-3, 74729-5, 5643-2 ####[facility] ([id number])[address] [place] [address] 94464 MCHC (RBC) [Mass/Vol] 32.0 g/dL Normal 32-36 [facility] Comment on above: Performed By: #### 2 639-3, 6, CBCA, CMP, 3040-3, 68143-8, 40975-4, 99790-0, 5643-2 ####[facility] ([id number])[address] [place] [address] 48742 MCV (RBC) [Entitic vol] 85 fL Normal 80-100 [facility] Comment on above: Performed By: #### 2 639-3, 6, CBCA, CMP, 3040-3, 93911-9, 55196-8, 66935-7, 5643-2 ####[facility] ([id number])[address] [place] [address] 67776 Monocytes (Bld) [#/Vol] 0.8 10*3/uL Normal 0-0.9 [facility] Comment on above: Performed By: #### 2 639-3, 2156-6, CBCA, CMP, 3040-3, 58610-2, 28669-9, 52807-2, 5643-2 ####[facility] ([id number])[address] [place] [address] 03712 Monocytes/100 WBC (Bld) 6.0 % Normal [facility] Comment on above: Performed By: #### 2 639-3, 6, CBCA, CMP, 3040-3, 70951-9, 76422-0, 39170-7, 5643-2 ####[facility] ([id number])[address] [place] [address] 75815 MYELOCYTE 1.0 % Normal [facility] Comment on above: Performed By: #### 2 639-3, 6, CBCA, CMP, 3040-3, 80734-0, 54271-5, 44626-3, 5643-2 ####[facility] ([id number])[address] [place] [address] 88789 Neutrophils (Bld) [#/Vol] 10.5 10*3/uL High 1.5-6.6 [facility] Comment on above: Performed By: #### 2 639-3, 6, CBCA, CMP, 3040-3, 30802-3, 55227-2, 93701-5, 5643-2 ####[facility] ([id number])[address] [place] [address] 03929 OVALOCYTE 1+ Abnormal NONE [facility] Comment on above: Performed By: #### 2 639-3, 2156-6, CBCA, CMP, 3040-3, 57646-4, 58176-8, 03190-1, 5643-2 ####[facility] ([id number])[address] [place] [address] 61568 Platelet mean volume (Bld) [Entitic vol] 8.3 fL Normal 7-12 [facility] Comment on above: Performed By: #### 2 639-3, 2156-6, CBCA, CMP, 3040-3, 91828-4, 65749-1, 19302-1, 5643-2 ####[facility] ([id number])[address] [place] [address] 69894 Platelets (Bld) [#/Vol] 262 10*3/uL Normal 150-450 [facility] Comment on above: Performed By: #### 2 639-3, 6, CBCA, CMP, 3040-3, 10319-1, 57938-2, 18109-6, 5643-2 ####[facility] ([id number])[address] [place] [address] 80600 RBC COUNT 4.25 X10E12/L Normal 3.80-5.20 [facility] Comment on above: Performed By: #### 2 639-3, 2156-6, CBCA, CMP, 3040-3, 67613-9, 79910-1, 98737-0, 5643-2 ####[facility] ([id number])[address] [place] [address] 98472 SEG NEUTROPHIL 73.0 % Normal [facility] Comment on above: Performed By: #### 2 639-3, 2156-6, CBCA, CMP, 3040-3, 14129-1, 77142-3, 33165-1, 5643-2 ####[facility] ([id number])[address] [place] [address] [place] [address] TOXIC GRANULATION 1+ Abnormal NONE [facility] Comment on above: Performed By: #### 2 639-3, 215-6, CBCA, CMP, 3040-3, 43944-2, 75107-2, 85220-8, 5643-2 ####[facility] ([id number])[address] [place] [address] 09594 WBC (Bld) [#/Vol] 14.0 10*3/uL High 4.0-11.0 [facility] Comment on above: Performed By: #### 2 639-3, 2156-6, CBCA, CMP, 3040-3, 22250-3, 57655-6, 30806-5, 5643-2 ####[facility] ([id number])[address] [place] [address] 90910 CK [Catalytic activity/Vol]o n 08-23-2024 CPK 48 U/L Normal 24-170 [facility] Comment on above: Performed By: #### 2 639-3, 2156-6, CBCA, CMP, 3040-3, 15760-5, 67759-7, 95858-2, 5643-2 ####[facility] ([id number])[address] [place] [address] 09350 COMPREHENSIVE METABOLIC PANE Dickson 08-23-2024 Albumin [Mass/Vol] 3.8 g/dL Normal 3.2-5.3 [facility] Comment on above: Performed By: #### 2 639-3, 2156-6, CBCA, CMP, 3040-3, 43847-7, 49320-6, 29332-7, 5643-2 ####[facility] ([id number])[address] [place] [address] 33093 ALP [Catalytic activity/Vol] 88 U/L Normal 39-130 [facility] Comment on above: Performed By: #### 2 639-3, 2156-6, CBCA, CMP, 3040-3, 10248-7, 14973-2, 76813-9, 5643-2 ####[facility] ([id number])[address] [place] [address] 26429 ALT [Catalytic activity/Vol] 19 U/L Normal 0-31 [facility] Comment on above: Performed By: #### 2 639-3, 2156-6, CBCA, CMP, 3040-3, 27499-4, 61748-6, 89825-3, 5643-2 ####[facility] ([id number])[address] [place] [address] 03924 Anion gap [Moles/Vol] 11 mmol/L Normal 5-15 [facility] Comment on above: Performed By: #### 2 639-3, 6, CBCA, CMP, 3040-3, 55487-9, 16973-1, 58480-7, 5643-2 ####[facility] ([id number])[address] [place] [address] 31855 AST [Catalytic activity/Vol] 20 U/L Normal 0-41 [facility] Comment on above: Performed By: #### 2 639-3, 2156-6, CBCA, CMP, 3040-3, 42427-4, 38114-5, 29251-3, 5643-2 ####[facility] ([id number])[address] [place] [address] 75276 Bilirubin [Mass/Vol] 0.6 mg/dL Normal 0.3-1.2 [facility] Comment on above: Performed By: #### 2 639-3, 2156-6, CBCA, CMP, 3040-3, 13534-1, 82414-7, 67268-0, 5643-2 ####[facility] ([id number])[address] [place] [address] 30905 Calcium [Mass/Vol] 8.8 mg/dL Normal 8.5-10.5 [facility] Comment on above: Performed By: #### 2 639-3, 2156-6, CBCA, CMP, 3040-3, 75373-5, 31358-6, 23814-3, 5643-2 ####[facility] ([id number])[address] [place] [address] [place] [address] Chloride [Moles/Vol] 102 mmol/L Normal 98-109 [facility] Comment on above: Performed By: #### 2 639-3, 6, CBCA, CMP, 3040-3, 27580-9, 18258-9, 69628-2, 5643-2 ####[facility] ([id number])[address] [place] [address] 89281 CO2 [Moles/Vol] 25 mmol/L Normal 22-32 [facility] Comment on above: Performed By: #### 2 639-3, 6, CBCA, CMP, 3040-3, 36242-2, 11893-8, 97943-4, 5643-2 ####[facility] ([id number])[address] [place] [address] 85868 Creatinine [Mass/Vol] 1.29 mg/dL High 0.40-1.00 [facility] Comment on above: Result Comment: METH OD TRACEABLE TO IDMS STANDARD Performed By: #### 2 639-3, 2156-6, CBCA, CMP, 3040-3, 44246-2, 40330-3, 94696-5, 5643-2 ####[facility] ([id number])[address] [place] [address] 39143 GFR/1.73 sq M.predicted among non-blacks MDRD (S/P/Bld) [Vol rate/Area] 42 mL/min/{1.73_m2} Low >59 [facility] Comment on above: Result Comment: Repo rted eGFR is based on theD-EPI 2020 equation that doesnot use a race coefficient. Performed By: #### 2 639-3, 6, CBCA, CMP, 3040-3, 79386-9, 14670-3, 49244-0, 5643-2 ####[facility] ([id number])[address] [place] [address] 09077 Glucose [Mass/Vol] 79 mg/dL Normal 65-99 [facility] Comment on above: Performed By: #### 2 639-3, 6, CBCA, CMP, 3040-3, 48872-5, 81027-9, 68590-6, 5643-2 ####[facility] ([id number])[address] [place] [address] 89215 Potassium [Moles/Vol] 3.3 mmol/L Low 3.5-5.0 [facility] Comment on above: Performed By: #### 2 639-3, 6, CBCA, CMP, 3040-3, 57996-8, 40307-5, 06980-8, 5643-2 ####[facility] ([id number])[address] [place] [address] 09154 Protein [Mass/Vol] 7.5 g/dL Normal 6.0-8.0 [facility] Comment on above: Performed By: #### 2 639-3, 6, CBCA, CMP, 3040-3, 56117-5, 95180-8, 39011-7, 5643-2 ####[facility] ([id number])[address] [place] [address] 15305 Sodium [Moles/Vol] 138 mmol/L Normal 134-146 [facility] Comment on above: Performed By: #### 2 639-3, 2157-6, CBCA, CMP, 3040-3, 22592-0, 86861-3, 55695-7, 5643-2 ####[facility] ([id number])[address] [place] [address] 88686 Urea nitrogen [Mass/Vol] 22 mg/dL Normal 5-27 [facility] Comment on above: Performed By: #### 2 639-3, 2156-6, CBCA, CMP, 3040-3, 85328-1, 80008-0, 32245-9, 5643-2 ####[facility] ([id number])[address] [place] [address]RAIN WO CONTon CT BRAIN WO CONT Normal [facility] ETHANOLon 08-23-2024 Ethanol [Mass/Vol] mg/dL Normal 0.00-0.08 [facility] Comment on above: Result Comment: This report is intended for use in clinicalmonitoring or management of patients. Performed By: #### 2 639-3, 2156-6, CBCA, CMP, 3040-3, 15227-8, 47589-4, 85779-7, 5643-2 ####[facility] ([id number])[address] [place] [address] 46619 Glucose Glucometer (BldC) [M ass/Vol]on 08-23-2024 Glucose [Mass/Vol] 267 mg/dL High 65-99 [facility] Glucose [Mass/Vol] 279 mg/dL High 65-99 [facility] Glucose [Mass/Vol] 298 mg/dL High 65-99 [facility] Glucose [Mass/Vol] 235 mg/dL High 65-99 [facility] Glucose [Mass/Vol] 141 mg/dL High 65- [facility] Glucose [Mass/Vol] 101 mg/dL High 65-99 [facility] Glucose [Mass/Vol] 83 mg/dL Normal 65-99 [facility] Glucose [Mass/Vol] 93 mg/dL Normal 65-99 [facility] Glucose [Mass/Vol] 144 mg/dL High 65-99 [facility] Glucose [Mass/Vol] 61 mg/dL Low 65-99 [facility] Glucose [Mass/Vol] 82 mg/dL Normal 65-99 [facility] Glucose [Mass/Vol] 176 mg/dL High 65-99 [facility] Glucose [Mass/Vol] 85 mg/dL Normal 65-99 [facility] Glucose [Mass/Vol] 91 mg/dL Normal 65-99 [facility] Glucose [Mass/Vol] 109 mg/dL High 65-99 [facility] Glucose [Mass/Vol] 55 mg/dL Low 65-99 [facility] LIPASEon 08-23-2024 Lipase [Catalytic activity/Vol] 30 U/L Normal 17-40 [facility] Comment on above: Performed By: #### 2 639-3, 2157-6, CBCA, CMP, 3040-3, 24542-2, 15915-6, 21521-1, 5643-2 ####[facility] ([id number])[address] [place] [address] 95960 Lactate (P obed) [Moles/Vol]o n 08-23-2024 Lactate [Moles/Vol] 2.0 mmol/L Normal 0.4-2.0 [facility] Comment on above: Performed By: #### 3 2133-1 ####[facility] ([id number])[address] [place] [address] 89817 LACTATE W/REFLEX 2.9 mmol/L High 0.4-2.[address] [facility] Comment on above: Performed By: #### 3 2133-1 ####[facility] ([id number])[address] [place] [address] 72579 MAGNESIUMon 08-23-2024 Magnesium [Mass/Vol] 2.7 mg/dL High 1.8-2.6 [facility] Comment on above: Performed By: #### 1 9123-9, THYR ####[facility] ([id number])[address] [place] [address] 96905 Magnesium [Mass/Vol] 1.6 mg/dL Low 1.8-2.6 [facility] Comment on above: Performed By: #### 2 639-3, 2156-6, CBCA, CMP, 3040-3, 77380-0, 99889-9, 49538-6, 5643-2 ####[facility] ([id number])[address] [place] [address] 41665 Myoglobin [Mass/Vol]on 08-23 SERUM MYOGLOBIN 97.6 ng/mL High 14.3-65.8 [facility] Comment on above: Performed By: #### 2 639-3, 2156-6, CBCA, CMP, 3040-3, 55374-5, 59651-1, 45799-0, 5643-2 ####[facility] ([id number])[address] [place] [address] 93069 Natriuretic peptide B [Mass/ Vol]on 08-23-2024 Natriuretic peptide B (Bld) [Mass/Vol] 66 pg/mL Normal <100.0 [facility] Comment on above: Performed By: #### 2 639-3, 6, CBCA, CMP, 3040-3, 91877-9, 13303-1, 01680-4, 5643-2 ####[facility] ([id number])[address] [place] [address] 88943 POTASSIUMon 08-23-2024 Potassium [Moles/Vol] 5.4 mmol/L High 3.5-5.0 [facility] Comment on above: Performed By: #### 2 823-3 ####[facility] ([id number])[address] [place] [address] 20418 PROTIME AND INRon 08-23-2024 INR Coag (PPP) [Relative time] 1.0 {INR} Normal 0.8-1.1 [facility] Comment on above: Performed By: #### P INR, 38879-6 ####[facility] ([id number])[address] [place] [address] 14009 PT Coag (PPP) [Time] 11.7 s Normal 9.8-13.2 [facility] Comment on above: Result Comment: NEW REFERENCE RANGE Performed By: #### P INR, 18509-0 ####[facility] ([id number])[address] [place] [address] 35273 THYROID PROFILEon 08-23-2024 Free T4 [Mass/Vol] 1.05 ng/dL Normal 0.61-1.60 [facility] Comment on above: Performed By: #### 1 9123-9, THYR ####[facility] ([id number])[address] [place] [address] 44361 TSH 0.38 uIU/mL Low 0.49-4.67 [facility] Comment on above: Performed By: #### 1 9123-9, THYR ####[facility] ([id number])[address] [place] [address] 51510 Troponin I.cardiac High sens itivity method [Mass/Vol]on 08-23-2024 3 HOUR TROP I, HIGH SENSITIVITY 112 ng/L High <16 [facility] Comment on above: Result Comment: Elev ations of hs-Troponin may be due to causesother than myocardial ischemia.Recommend serial hs-Troponin testing be performed.For the initial evaluation and management of chestpain patients, refer to the algorithms linked below.Emergency Patient:[email or web address] [email or web address]=acaeaInpatient:[email or web address] [email or web address]&[email or web address]&uh=acaea Performed By: #### 8 9579-7 ####[facility] ([id number])[address] [place] [address] 92014 1 HOUR TROP I, HIGH SENSITIVITY 72 ng/L High <16 [facility] Comment on above: Result Comment: Elev ations of hs-Troponin may be due to causesother than myocardial ischemia.Recommend serial hs-Troponin testing be performed.For the initial evaluation and management of chestpain patients, refer to the algorithms linked below.Emergency Patient:[email or web address]&[email or web address] 15&uh=acaeaInpatient:[email or web address] [email or web address]&[email or web address]&uh=acaea Performed By: #### 8 9579-7 ####[facility] ([id number])[address] [place] [address] 99350 TROPONIN I, HIGH SENSITIVITY 45 ng/L High <16 [facility] Comment on above: Result Comment: Elev ations of hs-Troponin may be due to causesother than myocardial ischemia.Recommend serial hs-Troponin testing be performed.For the initial evaluation and management of chestpain patients, refer to the algorithms linked below.Emergency Patient:[email or web address]&[email or web address] 15&uh=acaeaInpatient:[email or web address]&d [email or web address]&b=23282&uh=acaea Performed By: #### 2 639-3, 2157-6, CBCA, CMP, 3040-3, 95524-3, 15182-0, 19363-4, 5643-2 ####[facility] ([id number])[address] [place] [address], [place] [address] URINE CULTUREon 08-23-2024 Bacteria identified Cx Nom (U) CULTURE RESULTS NO GROWTH AT <1000 CFU/mL Normal [facility] Comment on above: Performed By: #### 6 30-4 ####[facility] ([id number])[address] [place] [address], [address], [place] [address] URN MACROSCOPIC NURon 2023 BILIRUBIN MARYJO Negative Normal NEG [facility] Comment on above: Performed By: #### N UM ####[facility] ([id number])[address] [place] [address] 66637 BLOOD/HGB MARYJO Negative Normal NEG [facility] Comment on above: Performed By: #### N UM ####[facility] ([id number])[address] [place] [address] 87191 GLUCOSE MARYJO 100 mg/dL Abnormal NEG [facility] Comment on above: Performed By: #### N UM ####[facility] ([id number])[address] [place] [address] 41893 KETONES MARYJO Negative Normal NEG [facility] Comment on above: Performed By: #### N UM ####[facility] ([id number])[address] [place] [address], [place] [address] LEUKOCYTE ESTERASE MARYJO Negative Normal NEG [facility] Comment on above: Performed By: #### N UM ####[facility] ([id number])[address] [place] [address] 05227 NITRITE MARYJO Negative Normal NEG [facility] Comment on above: Performed By: #### N UM ####[facility] ([id number])[address] [place] [address] 73393 PH MARYJO 6.5 Normal 5.0-8.5 [facility] Comment on above: Performed By: #### N UM ####[facility] ([id number])[address] [place] [address] 81947 PROTEIN MARYJO Negative Normal NEG [facility] Comment on above: Performed By: #### N UM ####[facility] ([id number])[address] [place] [address] 10472 SPECIFIC GRAVITY MARYJO 1.015 Normal 1.003-1.03 5 [facility] Comment on above: Performed By: #### N UM ####[facility] ([id number])[address] [place] [address] 05094 UROBILINOGEN MARYJO 0.2 eu/dL Normal <1.[address] [facility] Comment on above: Performed By: #### N UM ####[facility] ([id number])[address] [place] [address] 95840 XR CHEST 1 VWon 08-23-2024 XR CHEST 1 VW Normal [facility] aPTT Coag (PPP) [Time]on aPTT Coag (Bld) [Time] 24 s Low 26-37 [facility] Comment on above: Result Comment: NEW REFERENCE RANGE Performed By: #### P INR, 92151-9 ####[facility] ([id number])[address] [place] [address] 91548 CBC AND AUTO DIFFon 08-14-20 24 ABSOLUTE BASOPHIL 0.0 X10E9/L Normal 0.0-0.2 [facility] Comment on above: Performed By: #### 1 9123-9, CBCA, CMP, LIVR ####[facility] ([id number])[address] [place] [address] 54380 ABSOLUTE NEUTROPHIL 3.4 X10E9/L Normal 1.5-6.6 [facility] Comment on above: Performed By: #### 1 9123-9, CBCA, CMP, LIVR ####[facility] ([id number])[address] [place] [address] 12387 Basophils/100 WBC (Bld) 0.2 % Normal [facility] Comment on above: Performed By: #### 1 9123-9, CBCA, CMP, LIVR ####[facility] ([id number])[address] [place] [address] 18768 Eosinophils (Bld) [#/Vol] 0.0 10*3/uL Normal 0.0-0.4 [facility] Comment on above: Performed By: #### 1 9123-9, CBCA, CMP, LIVR ####[facility] ([id number])[address] [place] [address] 98121 Eosinophils/100 WBC (Bld) 0.0 % Normal [facility] Comment on above: Performed By: #### 1 9123-9, CBCA, CMP, LIVR ####[facility] ([id number])[address] [place] [address] 23833 Erythrocyte distribution width (RBC) [Ratio] 15.6 % High 11.5-15.0 [facility] Comment on above: Performed By: #### 1 9123-9, CBCA, CMP, LIVR ####[facility] ([id number])[address] [place] [address] 71093 Hematocrit (Bld) [Volume fraction] 30.5 % Low 35-47 [facility] Comment on above: Performed By: #### 1 9123-9, CBCA, CMP, LIVR ####[facility] ([id number])[address] [place] [address] 88317 Hemoglobin (Bld) [Mass/Vol] 9.9 g/dL Low 11.7-15.5 [facility] Comment on above: Performed By: #### 1 9123-9, CBCA, CMP, LIVR ####[facility] ([id number])[address] [place] [address] 25275 Lymphocytes (Bld) [#/Vol] 1.9 10*3/uL Normal 1.0-3.5 [facility] Comment on above: Performed By: #### 1 9123-9, CBCA, CMP, LIVR ####[facility] ([id number])[address] [place] [address] 38244 Lymphocytes/100 WBC (Bld) 29.8 % Normal [facility] Comment on above: Performed By: #### 1 9123-9, CBCA, CMP, LIVR ####[facility] ([id number])[address] [place] [address] 45835 MCH (RBC) [Entitic mass] 27.6 pg Normal 27-34 [facility] Comment on above: Performed By: #### 1 9123-9, CBCA, CMP, LIVR ####[facility] ([id number])[address] [place] [address] 01930 MCHC (RBC) [Mass/Vol] 32.5 g/dL Normal 32-36 [facility] Comment on above: Performed By: #### 1 9123-9, CBCA, CMP, LIVR ####[facility] ([id number])[address] [place] [address] 51207 MCV (RBC) [Entitic vol] 85 fL Normal 80-100 [facility] Comment on above: Performed By: #### 1 9123-9, CBCA, CMP, LIVR ####[facility] ([id number])[address] [place] [address] 10199 Monocytes (Bld) [#/Vol] 1.0 10*3/uL High 0-0.9 [facility] Comment on above: Performed By: #### 1 9123-9, CBCA, CMP, LIVR ####[facility] ([id number])[address] [place] [address] 29506 Monocytes/100 WBC (Bld) 15.5 % Normal [facility] Comment on above: Performed By: #### 1 9123-9, CBCA, CMP, LIVR ####[facility] ([id number])[address] [place] [address] 06864 Neutrophils/100 WBC (Bld) 54.5 % Normal [facility] Comment on above: Performed By: #### 1 9123-9, CBCA, CMP, LIVR ####[facility] ([id number])[address] [place] [address] 12480 Platelet mean volume (Bld) [Entitic vol] 8.3 fL Normal 7-12 [facility] Comment on above: Performed By: #### 1 9123-9, CBCA, CMP, LIVR ####[facility] ([id number])[address] [place] [address] 76341 Platelets (Bld) [#/Vol] 228 10*3/uL Normal 150-450 [facility] Comment on above: Performed By: #### 1 9123-9, CBCA, CMP, LIVR ####[facility] ([id number])[address] [place] [address] 95393 RBC COUNT 3.60 X10E12/L Low 3.80-5.20 [facility] Comment on above: Performed By: #### 1 9123-9, CBCA, CMP, LIVR ####[facility] ([id number])[address] [place] [address] 55971 WBC (Bld) [#/Vol] 6.3 10*3/uL Normal 4.0-11.0 [facility] Comment on above: Performed By: #### 1 9123-9, CBCA, CMP, LIVR ####[facility] ([id number])[address] [place] [address] [place] [address] COMPREHENSIVE METABOLIC PANE Dickson 08-14-2024 Albumin [Mass/Vol] 3.4 g/dL Normal 3.2-5.3 [facility] Comment on above: Performed By: #### 1 9123-9, CBCA, CMP, LIVR ####[facility] ([id number])[address] [place] [address] 41067 ALP [Catalytic activity/Vol] 70 U/L Normal 39-130 [facility] Comment on above: Performed By: #### 1 9123-9, CBCA, CMP, LIVR ####[facility] ([id number])[address] [place] [address] 99554 ALT [Catalytic activity/Vol] 14 U/L Normal 0-31 [facility] Comment on above: Performed By: #### 1 9123-9, CBCA, CMP, LIVR ####[facility] ([id number])[address] [place] [address] 81954 Anion gap [Moles/Vol] 10 mmol/L Normal 5-15 [facility] Comment on above: Performed By: #### 1 9123-9, CBCA, CMP, LIVR ####[facility] ([id number])[address] [place] [address] 81843 AST [Catalytic activity/Vol] 19 U/L Normal 0-41 [facility] Comment on above: Performed By: #### 1 9123-9, CBCA, CMP, LIVR ####[facility] ([id number])[address] [place] [address] 53748 Bilirubin [Mass/Vol] 0.4 mg/dL Normal 0.3-1.2 [facility] Comment on above: Performed By: #### 1 9123-9, CBCA, CMP, LIVR ####[facility] ([id number])[address] [place] [address] 75353 Calcium [Mass/Vol] 9.0 mg/dL Normal 8.5-10.5 [facility] Comment on above: Performed By: #### 1 9123-9, CBCA, CMP, LIVR ####[facility] ([id number])[address] [place] [address] 09374 Chloride [Moles/Vol] 103 mmol/L Normal 98-109 [facility] Comment on above: Performed By: #### 1 9123-9, CBCA, CMP, LIVR ####[facility] ([id number])[address] [place] [address] 31071 CO2 [Moles/Vol] 22 mmol/L Normal 22-32 [facility] Comment on above: Performed By: #### 1 9123-9, CBCA, CMP, LIVR ####[facility] ([id number])[address] [place] [address] 71500 Creatinine [Mass/Vol] 1.39 mg/dL High 0.40-1.00 [facility] Comment on above: Result Comment: METH OD TRACEABLE TO IDMS STANDARD Performed By: #### 1 9123-9, CBCA, CMP, LIVR ####[facility] ([id number])[address] [place] [address] 72992 GFR/1.73 sq M.predicted among non-blacks MDRD (S/P/Bld) [Vol rate/Area] 39 mL/min/{1.73_m2} Low >59 [facility] Comment on above: Result Comment: Repo rted eGFR is based on theCKD-EPI 2020 equation that doesnot use a race coefficient. Performed By: #### 1 9123-9, CBCA, CMP, LIVR ####[facility] ([id number])[address] [place] [address] 23941 Glucose [Mass/Vol] 102 mg/dL High 65-99 [facility] Comment on above: Performed By: #### 1 9123-9, CBCA, CMP, LIVR ####[facility] ([id number])[address] [place] [address] 40828 Potassium [Moles/Vol] 4.3 mmol/L Normal 3.5-5.0 [facility] Comment on above: Performed By: #### 1 9123-9, CBCA, CMP, LIVR ####[facility] ([id number])[address] [place] [address] 65962 Protein [Mass/Vol] 7.0 g/dL Normal 6.0-8.0 [facility] Comment on above: Performed By: #### 1 9123-9, CBCA, CMP, LIVR ####[facility] ([id number])[address] [place] [address] 69940 Sodium [Moles/Vol] 135 mmol/L Normal 134-146 [facility] Comment on above: Performed By: #### 1 9123-9, CBCA, CMP, LIVR ####[facility] ([id number])[address] [place] [address] 36623 Urea nitrogen [Mass/Vol] 40 mg/dL High 5-27 [facility] Comment on above: Performed By: #### 1 9123-9, CBCA, CMP, LIVR ####[facility] ([id number])[address] [place] [address] 34979 Glucose Glucometer (BldC) [M ass/Vol]on 08-14-2024 Glucose [Mass/Vol] 372 mg/dL High 65-99 [facility] Glucose [Mass/Vol] 204 mg/dL High 65-99 [facility] LIVER PANELon 08-14-2024 Bilirubin.indirec t [Mass/Vol] mg/dL Normal 0.0-0.4 [facility] Comment on above: Performed By: #### 1 9123-9, CBCA, CMP, LIVR ####[facility] ([id number])[address] [place] [address] 30406 MAGNESIUMon 08-14-2024 Magnesium [Mass/Vol] 1.8 mg/dL Normal 1.8-2.6 [facility] Comment on above: Performed By: #### 1 9123-9, CBCA, CMP, LIVR ####[facility] ([id number])[address] [place] [address] 70557 CBC AND AUTO DIFFon 08-13-20 ABSOLUTE BASOPHIL 0.0 X10E9/L Normal 0.0-0.2 [facility] Comment on above: Performed By: #### 1 9123-9, CMP, LIVR, CBCA ####[facility] ([id number])[address] [place] [address] 74607 ABSOLUTE NEUTROPHIL 4.4 X10E9/L Normal 1.5-6.6 [facility] Comment on above: Performed By: #### 1 9123-9, CMP, LIVR, CBCA ####[facility] ([id number])[address] [place] [address] 42934 Basophils/100 WBC (Bld) 0.2 % Normal [facility] Comment on above: Performed By: #### 1 9123-9, CMP, LIVR, CBCA ####[facility] ([id number])[address] [place] [address] 57419 Eosinophils (Bld) [#/Vol] 0.0 10*3/uL Normal 0.0-0.4 [facility] Comment on above: Performed By: #### 1 9123-9, CMP, LIVR, CBCA ####[facility] ([id number])[address] [place] [address] 41628 Eosinophils/100 WBC (Bld) 0.2 % Normal [facility] Comment on above: Performed By: #### 1 9123-9, CMP, LIVR, CBCA ####[facility] ([id number])[address] [place] [address] 59194 Erythrocyte distribution width (RBC) [Ratio] 16.1 % High 11.5-15.0 [facility] Comment on above: Performed By: #### 1 9123-9, CMP, LIVR, CBCA ####[facility] ([id number])[address] [place] [address] 19032 Hematocrit (Bld) [Volume fraction] 28.2 % Low 35-47 [facility] Comment on above: Performed By: #### 1 9123-9, CMP, LIVR, CBCA ####[facility] ([id number])[address] [place] [address] 56741 Hemoglobin (Bld) [Mass/Vol] 9.1 g/dL Low 11.7-15.5 [facility] Comment on above: Performed By: #### 1 9123-9, CMP, LIVR, CBCA ####[facility] ([id number])[address] [place] [address] 31229 Lymphocytes (Bld) [#/Vol] 1.1 10*3/uL Normal 1.0-3.5 [facility] Comment on above: Performed By: #### 1 9123-9, CMP, LIVR, CBCA ####[facility] ([id number])[address] [place] [address] 39339 Lymphocytes/100 WBC (Bld) 17.4 % Normal [facility] Comment on above: Performed By: #### 1 9123-9, CMP, LIVR, CBCA ####[facility] ([id number])[address] [place] [address] 24250 MCH (RBC) [Entitic mass] 27.5 pg Normal 27-34 [facility] Comment on above: Performed By: #### 1 9123-9, CMP, LIVR, CBCA ####[facility] ([id number])[address] [place] [address] 02915 MCHC (RBC) [Mass/Vol] 32.2 g/dL Normal 32-36 [facility] Comment on above: Performed By: #### 1 9123-9, CMP, LIVR, CBCA ####[facility] ([id number])[address] [place] [address] 11914 MCV (RBC) [Entitic vol] 85 fL Normal 80-100 [facility] Comment on above: Performed By: #### 1 9123-9, CMP, LIVR, CBCA ####[facility] ([id number])[address] [place] [address] 99139 Monocytes (Bld) [#/Vol] 0.9 10*3/uL Normal 0-0.9 [facility] Comment on above: Performed By: #### 1 9123-9, CMP, LIVR, CBCA ####[facility] ([id number])[address] [place] [address] 36643 Monocytes/100 WBC (Bld) 13.8 % Normal [facility] Comment on above: Performed By: #### 1 9123-9, CMP, LIVR, CBCA ####[facility] ([id number])[address] [place] [address] 80524 Neutrophils/100 WBC (Bld) 68.4 % Normal [facility] Comment on above: Performed By: #### 1 9123-9, CMP, LIVR, CBCA ####[facility] ([id number])[address] [place] [address] 07259 Platelet mean volume (Bld) [Entitic vol] 8.6 fL Normal 7-12 [facility] Comment on above: Performed By: #### 1 9123-9, CMP, LIVR, CBCA ####[facility] ([id number])[address] [place] [address] 05380 Platelets (Bld) [#/Vol] 207 10*3/uL Normal 150-450 [facility] Comment on above: Performed By: #### 1 9123-9, CMP, LIVR, CBCA ####[facility] ([id number])[address] [place] [address] 28858 RBC COUNT 3.30 X10E12/L Low 3.80-5.20 [facility] Comment on above: Performed By: #### 1 9123-9, CMP, LIVR, CBCA ####[facility] ([id number])[address] [place] [address] 26212 WBC (Bld) [#/Vol] 6.5 10*3/uL Normal 4.0-11.0 [facility] Comment on above: Performed By: #### 1 9123-9, CMP, LIVR, CBCA ####[facility] ([id number])[address] [place] [address] 87067 COMPREHENSIVE METABOLIC PANE Dickson 08-13-2024 Albumin [Mass/Vol] 3.4 g/dL Normal 3.2-5.3 [facility] Comment on above: Performed By: #### 1 9123-9, CMP, LIVR, CBCA ####[facility] ([id number])[address] [place] [address] 86593 ALP [Catalytic activity/Vol] 74 U/L Normal 39-130 [facility] Comment on above: Performed By: #### 1 9123-9, CMP, LIVR, CBCA ####[facility] ([id number])[address] [place] [address] 50039 ALT [Catalytic activity/Vol] 13 U/L Normal 0-31 [facility] Comment on above: Performed By: #### 1 9123-9, CMP, LIVR, CBCA ####[facility] ([id number])[address] [place] [address], [place] [address] Anion gap [Moles/Vol] 8 mmol/L Normal 5-15 [facility] Comment on above: Performed By: #### 1 9123-9, CMP, LIVR, CBCA ####[facility] ([id number])[address] [place] [address], [place] [address] AST [Catalytic activity/Vol] 17 U/L Normal 0-41 [facility] Comment on above: Performed By: #### 1 9123-9, CMP, LIVR, CBCA ####[facility] ([id number])[address] [place] [address] 46108 Bilirubin [Mass/Vol] 0.3 mg/dL Normal 0.3-1.2 [facility] Comment on above: Performed By: #### 1 9123-9, CMP, LIVR, CBCA ####[facility] ([id number])[address] [place] [address] 24364 Calcium [Mass/Vol] 8.9 mg/dL Normal 8.5-10.5 [facility] Comment on above: Performed By: #### 1 9123-9, CMP, LIVR, CBCA ####[facility] ([id number])[address] [place] [address] [place] [address] Chloride [Moles/Vol] 101 mmol/L Normal 98-109 [facility] Comment on above: Performed By: #### 1 9123-9, CMP, LIVR, CBCA ####[facility] ([id number])[address] [place] [address] [place] [address] CO2 [Moles/Vol] 27 mmol/L Normal 22-32 [facility] Comment on above: Performed By: #### 1 9123-9, CMP, LIVR, CBCA ####[facility] ([id number])[address] [place] [address] 03609 Creatinine [Mass/Vol] 1.43 mg/dL High 0.40-1.00 [facility] Comment on above: Result Comment: METH OD TRACEABLE TO IDMS STANDARD Performed By: #### 1 9123-9, CMP, LIVR, CBCA ####[facility] ([id number])[address] [place] [address] 38956 GFR/1.73 sq M.predicted among non-blacks MDRD (S/P/Bld) [Vol rate/Area] 38 mL/min/{1.73_m2} Low >59 [facility] Comment on above: Result Comment: Repo rted eGFR is based on theCKD-EPI 2020 equation that doesnot use a race coefficient. Performed By: #### 1 9123-9, CMP, LIVR, CBCA ####[facility] ([id number])[address] [place] [address] 33105 Glucose [Mass/Vol] 189 mg/dL High 65-99 [facility] Comment on above: Performed By: #### 1 9123-9, CMP, LIVR, CBCA ####[facility] ([id number])[address] [place] [address] 94531 Potassium [Moles/Vol] 4.8 mmol/L Normal 3.5-5.0 [facility] Comment on above: Performed By: #### 1 9123-9, CMP, LIVR, CBCA ####[facility] ([id number])[address] [place] [address] 65045 Protein [Mass/Vol] 6.9 g/dL Normal 6.0-8.0 [facility] Comment on above: Performed By: #### 1 9123-9, CMP, LIVR, CBCA ####[facility] ([id number])[address] [place] [address] 30659 Sodium [Moles/Vol] 136 mmol/L Normal 134-146 [facility] Comment on above: Performed By: #### 1 9123-9, CMP, LIVR, CBCA ####[facility] ([id number])[address] [place] [address] 66765 Urea nitrogen [Mass/Vol] 33 mg/dL High 5-27 [facility] Comment on above: Performed By: #### 1 9123-9, CMP, LIVR, CBCA ####[facility] ([id number])[address] [place] [address] 12288 Glucose Glucometer (BldC) [M ass/Vol]on 08-13-2024 Glucose [Mass/Vol] 233 mg/dL High 65-99 [facility] Glucose [Mass/Vol] 261 mg/dL High 65-99 [facility] Glucose [Mass/Vol] 235 mg/dL High 65-99 [facility] Glucose [Mass/Vol] 136 mg/dL High 65-99 [facility] LIVER PANELon 08-13-2024 Bilirubin.direct [Mass/Vol] 0.1 mg/dL Normal 0.0-0.4 [facility] Comment on above: Performed By: #### 1 9123-9, CMP, LIVR, CBCA ####[facility] ([id number])[address] [place] [address] 90722 MAGNESIUMon 08-13-2024 Magnesium [Mass/Vol] 1.9 mg/dL Normal 1.8-2.6 [facility] Comment on above: Performed By: #### 1 9123-9, CMP, LIVR, CBCA ####[facility] ([id number])[address] [place] [address] 21146 BLOOD CULTUREon 08-12-2024 Bacteria identified Aer cx Nom (Bld) SPECIMEN NOTES l hand CULTURE RESULTS NO GROWTH 5 DAYS Normal [facility] Comment on above: Performed By: #### 1 7928-3 ####[facility] ([id number])[address] [place] [address] 53991 Bacteria identified Aer cx Nom (Bld) SPECIMEN NOTES r hand CULTURE RESULTS NO GROWTH 5 DAYS Normal [facility] Comment on above: Performed By: #### 1 7928-3 ####[facility] ([id number])[address] [place] [address] 03559 CBC AND AUTO DIFFon 08-12-20 24 ABSOLUTE BASOPHIL 0.0 X10E9/L Normal 0.0-0.2 [facility] Comment on above: Performed By: #### 7 5241-0, CMP, LIVR, 26720-4, CBCA ####[facility] ([id number])[address] [place] [address] 11758 ABSOLUTE NEUTROPHIL 5.8 X10E9/L Normal 1.5-6.6 [facility] Comment on above: Performed By: #### 7 5241-0, CMP, LIVR, 77239-6, CBCA ####[facility] ([id number])[address] [place] [address] 41382 Basophils/100 WBC (Bld) 0.5 % Normal [facility] Comment on above: Performed By: #### 7 5241-0, CMP, LIVR, 37761-2, CBCA ####[facility] ([id number])[address] [place] [address] 84114 Eosinophils (Bld) [#/Vol] 0.1 10*3/uL Normal 0.0-0.4 [facility] Comment on above: Performed By: #### 7 5241-0, CMP, LIVR, 45098-3, CBCA ####[facility] ([id number])[address] [place] [address] 91223 Eosinophils/100 WBC (Bld) 1.5 % Normal [facility] Comment on above: Performed By: #### 7 5241-0, CMP, LIVR, 80581-3, CBCA ####[facility] ([id number])[address] [place] [address] 10149 Erythrocyte distribution width (RBC) [Ratio] 16.1 % High 11.5-15.0 [facility] Comment on above: Performed By: #### 7 5241-0, CMP, LIVR, 55182-3, CBCA ####[facility] ([id number])[address] [place] [address] 79384 Hematocrit (Bld) [Volume fraction] 30.8 % Low 35-47 [facility] Comment on above: Performed By: #### 7 5241-0, CMP, LIVR, 95926-6, CBCA ####[facility] ([id number])[address] [place] [address] 10984 Hemoglobin (Bld) [Mass/Vol] 10.1 g/dL Low 11.7-15.5 [facility] Comment on above: Performed By: #### 7 5241-0, CMP, LIVR, 06704-7, CBCA ####[facility] ([id number])[address] [place] [address] 72626 Lymphocytes (Bld) [#/Vol] 0.5 10*3/uL Low 1.0-3.5 [facility] Comment on above: Performed By: #### 7 5241-0, CMP, LIVR, 83068-9, CBCA ####[facility] ([id number])[address] [place] [address] 77972 Lymphocytes/100 WBC (Bld) 7.4 % Normal [facility] Comment on above: Performed By: #### 7 5241-0, CMP, LIVR, 00125-2, CBCA ####[facility] ([id number])[address] [place] [address] 11529 MCH (RBC) [Entitic mass] 27.8 pg Normal 27-34 [facility] Comment on above: Performed By: #### 7 5241-0, CMP, LIVR, 17134-2, CBCA ####[facility] ([id number])[address] [place] [address] 56293 MCHC (RBC) [Mass/Vol] 32.7 g/dL Normal 32-36 [facility] Comment on above: Performed By: #### 7 5241-0, CMP, LIVR, 04898-6, CBCA ####[facility] ([id number])[address] [place] [address] 38318 MCV (RBC) [Entitic vol] 85 fL Normal 80-100 [facility] Comment on above: Performed By: #### 7 5241-0, CMP, LIVR, 39538-0, CBCA ####[facility] ([id number])[address] [place] [address] 56701 Monocytes (Bld) [#/Vol] 0.8 10*3/uL Normal 0-0.9 [facility] Comment on above: Performed By: #### 7 5241-0, CMP, LIVR, 47901-2, CBCA ####[facility] ([id number])[address] [place] [address] 55558 Monocytes/100 WBC (Bld) 11.4 % Normal [facility] Comment on above: Performed By: #### 7 5241-0, CMP, LIVR, 63782-5, CBCA ####[facility] ([id number])[address] [place] [address] 64739 Neutrophils/100 WBC (Bld) 79.2 % Normal [facility] Comment on above: Performed By: #### 7 5241-0, CMP, LIVR, 42565-5, CBCA ####[facility] ([id number])[address] [place] [address] 86389 Platelet mean volume (Bld) [Entitic vol] 8.2 fL Normal 7-12 [facility] Comment on above: Performed By: #### 7 5241-0, CMP, LIVR, 42739-2, CBCA ####[facility] ([id number])[address] [place] [address] 55977 Platelets (Bld) [#/Vol] 260 10*3/uL Normal 150-450 [facility] Comment on above: Performed By: #### 7 5241-0, CMP, LIVR, 73691-7, CBCA ####[facility] ([id number])[address] [place] [address] 76905 RBC COUNT 3.62 X10E12/L Low 3.80-5.20 [facility] Comment on above: Performed By: #### 7 5241-0, CMP, LIVR, 91174-5, CBCA ####[facility] ([id number])[address] [place] [address] 27130 WBC (Bld) [#/Vol] 7.3 10*3/uL Normal 4.0-11.0 [facility] Comment on above: Performed By: #### 7 5241-0, CMP, LIVR, 07760-8, CBCA ####[facility] ([id number])[address] [place] [address] 27027 COMPREHENSIVE METABOLIC PANE Dickson 08-12-2024 Albumin [Mass/Vol] 4.1 g/dL Normal 3.2-5.3 [facility] Comment on above: Performed By: #### 7 5241-0, CMP, LIVR, 41361-3, CBCA ####[facility] ([id number])[address], [place] [address] ALP [Catalytic activity/Vol] 87 U/L Normal 39-130 [facility] Comment on above: Performed By: #### 7 5241-0, CMP, LIVR, 98131-4, CBCA ####[facility] ([id number])[address] [place] [address] 66267 ALT [Catalytic activity/Vol] 13 U/L Normal 0-31 [facility] Comment on above: Performed By: #### 7 5241-0, CMP, LIVR, 68171-8, CBCA ####[facility] ([id number])[address] [place] [address] 20826 Anion gap [Moles/Vol] 8 mmol/L Normal 5-15 [facility] Comment on above: Performed By: #### 7 5241-0, CMP, LIVR, 55779-5, CBCA ####[facility] ([id number])[address] [place] [address] 67553 AST [Catalytic activity/Vol] 17 U/L Normal 0-41 [facility] Comment on above: Performed By: #### 7 5241-0, CMP, LIVR, 38134-5, CBCA ####[facility] ([id number])[address] [place] [address] 60189 Bilirubin [Mass/Vol] 0.4 mg/dL Normal 0.3-1.2 [facility] Comment on above: Performed By: #### 7 5241-0, CMP, LIVR, 50030-2, CBCA ####[facility] ([id number])[address] [place] [address] 63310 Calcium [Mass/Vol] 9.0 mg/dL Normal 8.5-10.5 [facility] Comment on above: Performed By: #### 7 5241-0, CMP, LIVR, 07987-5, CBCA ####[facility] ([id number])[address] [place] [address] 11843 Chloride [Moles/Vol] 101 mmol/L Normal 98-109 [facility] Comment on above: Performed By: #### 7 5241-0, CMP, LIVR, 85316-5, CBCA ####[facility] ([id number])[address] [place] [address] 03275 CO2 [Moles/Vol] 27 mmol/L Normal 22-32 [facility] Comment on above: Performed By: #### 7 5241-0, CMP, LIVR, 57671-5, CBCA ####[facility] ([id number])[address] [place] [address] 11334 Creatinine [Mass/Vol] 1.48 mg/dL High 0.40-1.00 [facility] Comment on above: Result Comment: METH OD TRACEABLE TO IDMS STANDARD Performed By: #### 7 5241-0, CMP, LIVR, 87087-5, CBCA ####[facility] ([id number])[address] [place] [address] 20885 GFR/1.73 sq M.predicted among non-blacks MDRD (S/P/Bld) [Vol rate/Area] 36 mL/min/{1.73_m2} Low >59 [facility] Comment on above: Result Comment: Repo rted eGFR is based on theCKD-EPI 2020 equation that doesnot use a race coefficient. Performed By: #### 7 5241-0, CMP, LIVR, 36101-5, CBCA ####[facility] ([id number])[address] [place] [address] 16654 Glucose [Mass/Vol] 271 mg/dL High 65-99 [facility] Comment on above: Performed By: #### 7 5241-0, CMP, LIVR, 69159-0, CBCA ####[facility] ([id number])[address] [place] [address] 41950 Potassium [Moles/Vol] 4.8 mmol/L Normal 3.5-5.0 [facility] Comment on above: Performed By: #### 7 5241-0, CMP, LIVR, 24321-0, CBCA ####[facility] ([id number])[address] [place] [address] 83377 Protein [Mass/Vol] 7.6 g/dL Normal 6.0-8.0 [facility] Comment on above: Performed By: #### 7 5241-0, CMP, LIVR, 81935-8, CBCA ####[facility] ([id number])[address] [place] [address] 82034 Sodium [Moles/Vol] 136 mmol/L Normal 134-146 [facility] Comment on above: Performed By: #### 7 5241-0, CMP, LIVR, 95609-8, CBCA ####[facility] ([id number])[address] [place] [address] 14551 Urea nitrogen [Mass/Vol] 33 mg/dL High 5-27 [facility] Comment on above: Performed By: #### 7 5241-0, CMP, LIVR, 79711-0, CBCA ####[facility] ([id number])[address] [place] [address] 76277 Fibrin D-dimer DDU (PPP) [Ma ss/Vol]on 08-12-2024 D DIMER 1146 ng/mL DDU High <255 [facility] Comment on above: Result Comment: Resu lts >=255ng/mL DDU: Results may beindicative of the presence of VTE. The useof the Wells score and further diagnostictests should be considered. Elevated D-Dimerlevels can also be associated with DIC,neoplasm, , trauma and liver disease.Elevated levels of rheumatoid factor may leadto an overestimation of the D-Dimer level. Performed By: #### 7 5241-0, CMP, LIVR, 65492-6, CBCA ####[facility] ([id number])[address] [place] [address] 61774 Glucose Glucometer (BldC) [M ass/Vol]on 08-12-2024 Glucose [Mass/Vol] 313 mg/dL High 65-99 [facility] Glucose [Mass/Vol] 255 mg/dL High 65-99 [facility] Glucose [Mass/Vol] 113 mg/dL High 65-99 [facility] Glucose [Mass/Vol] 161 mg/dL High 65-99 [facility] LEGIONELLA URINE AGon 2023 L. pneumophila Ag IA Ql (U) LEGIONELLA URINE AG Negative (qualifier value) NEGATIVE FOR L.PNEUMOPHILA SEROGROUP 1 ANTIGEN Normal [facility] Comment on above: Performed By: #### 6 447-7 ####[facility] ([id number])[address] [place] [address], [address] [place] [address] 21024 LIVER PANELon 08-12-2024 Albumin [Mass/Vol] 3.9 g/dL Normal 3.2-5.3 [facility] Comment on above: Performed By: #### 7 5241-0, CMP, LIVR, 37044-8, CBCA ####[facility] ([id number])[address] [place] [address] 67236 Bilirubin [Mass/Vol] 0.1 mg/dL Low 0.3-1.2 [facility] Comment on above: Performed By: #### 7 5241-0, CMP, LIVR, 59629-1, CBCA ####[facility] ([id number])[address] [place] [address] 85133 Bilirubin.indirec t [Mass/Vol] mg/dL Normal 0.0-0.4 [facility] Comment on above: Performed By: #### 7 5241-0, CMP, LIVR, 61539-3, CBCA ####[facility] ([id number])[address] [place] [address] Protein [Mass/Vol] 7.5 g/dL Normal 6.0-8.0 [facility] Comment on above: Performed By: #### 7 5241-0, CMP, LIVR, 13858-6, CBCA ####[facility] ([id number])[address] [place] [address] Lactate (P obed) [Moles/Vol]o n 08-12-2024 LACTATE W/REFLEX 0.9 mmol/L Normal 0.4-2.[address] [facility] Comment on above: Result Comment: Resu lt did not trigger repeat Lactate,re-order if needed. Performed By: #### 3 2133-1 ####[facility] ([id number])[address] [place] [address] NM PULM PERFUSION SCANon NM PULM PERFUSION SCAN Normal [facility] Procalcitonin IA [Mass/Vol]o n 08-12-2024 PROCALCITONIN 0.05 ng/mL High <0.05 [facility] Comment on above: Result Comment: NOTE <0.50 ng/mL - Low risk of severe sepsis and/or septic shock.<2.00 ng/mL - Recommend retesting within 6-24 hours.>2.00 ng/mL - High risk of sepsis and/or septic shock. Performed By: #### 7 5241-0, CMP, LIVR, 59884-6, CBCA ####[facility] ([id number])[address] [place] [address] S PNEUMONIAE AG Uon 08-12-20 24 S. pneumoniae Ag Ql (U) Negative Normal NEG [facility] Comment on above: Performed By: #### 2 4027-5 ####[facility] ([id number])[address] [address] SARS/FLU A+B/RSV by NAAT/Mol ecularon 08-12-2024 SARS/FLU A+B/RSV by NAAT/Molecular Normal [facility] Comment on above: Performed By: #### C OVFLR ####[facility] ([id number])[address] [place] [address] URINE CULTUREon 08-12-2024 Bacteria identified Cx Nom (U) Susceptible [facility] Comment on above: Performed By: #### 6 30-4 ####[facility] ([id number])[address] [facility] [address], [address], [place] [address] URN MACROSCOPIC NURon 2023 BILIRUBIN MARYJO Negative Normal NEG [facility] Comment on above: Performed By: #### N UM ####[facility] ([id number])[address] [place] [address] [place] [address] BLOOD/HGB MARYJO Negative Normal NEG [facility] Comment on above: Performed By: #### N UM ####[facility] ([id number])[address] [place] [address], [place] [address] GLUCOSE MARYJO 250 mg/dL Abnormal NEG [facility] Comment on above: Performed By: #### N UM ####[facility] ([id number])[address] [place] [address], [place] [address] KETONES MARYJO Negative Normal NEG [facility] Comment on above: Performed By: #### N UM ####[facility] ([id number])[address] [place] [address], [place] [address] LEUKOCYTE ESTERASE MARYJO Trace Abnormal NEG [facility] Comment on above: Performed By: #### N UM ####[facility] ([id number])[address] [place] [address] [place] [address] NITRITE MARYJO Positive Abnormal NEG [facility] Comment on above: Performed By: #### N UM ####[facility] ([id number])[address] [place] [address] PH MARYJO 7.0 Normal 5.0-8.5 [facility] Comment on above: Performed By: #### N UM ####[facility] ([id number])[address] [place] [address] 39[address] PROTEIN MARYJO 30 mg/dL Abnormal NEG [facility] Comment on above: Performed By: #### N UM ####[facility] ([id number])[address] [place] [address] SPECIFIC GRAVITY MARYJO >=1.030 Normal 1.003-1.03 5 [facility] Comment on above: Performed By: #### N UM ####[facility] ([id number])[address] [place] [address] UROBILINOGEN MARYJO 0.2 eu/dL Normal <1.[address] [facility] Comment on above: Performed By: #### N UM ####[facility] ([id number])[address] [place] [address] 680[address] VENOUS BLOOD GASon 4 TATO'S TEST Normal [facility] Comment on above: Performed By: #### V BG ####[facility] ([id number])[address] [place] [address] Base excess Calc (Bld) [Moles/Vol] 3.0 mmol/L High 0.0-2.0 [facility] Comment on above: Performed By: #### V BG ####[facility] ([id number])[address] [place] [address] 51409 Body temperature 98.6 [degF] Normal 37.0 [facility] Comment on above: Performed By: #### V BG ####[facility] ([id number])[address] [place] [address] 68634 HCO3 (Bld) [Moles/Vol] 30.2 mmol/L High 20.0-24.0 [facility] Comment on above: Performed By: #### V BG ####[facility] ([id number])[address] [place] [address] 39672 Oxygen saturation in Blood 43.0 % Low >80.0 [facility] Comment on above: Performed By: #### V BG ####[facility] ([id number])[address] [place] [address] [place] [address] OXYGEN SOURCE NC Normal [facility] Comment on above: Performed By: #### V BG ####[facility] ([id number])[address] [place] [address]66[address] PCO2, VENOUS 58.4 MMHG High 35-50 [facility] Comment on above: Performed By: #### V BG ####[facility] ([id number])[address] [place] [address] [place] [address] PH, VENOUS 7.322 Normal 7.320-7.42 0 [facility] Comment on above: Performed By: #### V BG ####[facility] ([id number])[address] [place] [address] [place] [address] PO2, VENOUS 27 MMHG Low 30-50 [facility] Comment on above: Performed By: #### V BG ####[facility] ([id number])[address] [place] [address] [place] [address] SAMPLE SITE N/A Normal [facility] Comment on above: Performed By: #### V BG ####[facility] ([id number])[address] [place] [address] [place] [address] SAMPLE TYPE VENOUS Normal [facility] Comment on above: Performed By: #### V BG ####[facility] ([id number])[address] [place] [address] [place] [address] XR CHEST 1 VWon 08-12-2024 XR CHEST 1 VW Normal [facility] Glucose Glucometer (BldC) [M ass/Vol]on 06-26-2024 Glucose [Mass/Vol] 206 mg/dL High 65-99 [facility] URN MACROSCOPIC NURon 2023 BILIRUBIN MARYJO Negative Normal NEG [facility] Comment on above: Performed By: #### N UM ####[facility] ([id number])[address] [place] [address] BLOOD/HGB MARYJO Negative Normal NEG [facility] Comment on above: Performed By: #### N UM ####[facility] ([id number])[address] [place] [address]27[address] GLUCOSE MARYJO 250 mg/dL Abnormal NEG [facility] Comment on above: Performed By: #### N UM ####[facility] ([id number])[address] [place] [address] [place] [address] KETONES MARYJO Negative Normal NEG [facility] Comment on above: Performed By: #### N UM ####[facility] ([id number])[address] [place] [address] [place] [address] LEUKOCYTE ESTERASE MARYJO Negative Normal NEG [facility] Comment on above: Performed By: #### N UM ####[facility] ([id number])[address] [place] [address] 28[address] NITRITE MARYJO Negative Normal NEG [facility] Comment on above: Performed By: #### N UM ####[facility] ([id number])[address] [place] [address] 55581 PH MARYJO 5.5 Normal 5.0-8.5 [facility] Comment on above: Performed By: #### N UM ####[facility] ([id number])[address] [place] [address] PROTEIN MARYJO 30 mg/dL Abnormal NEG [facility] Comment on above: Performed By: #### N UM ####[facility] ([id number])[address] [place] [address] 74[address] SPECIFIC GRAVITY MARYJO >=1.030 Normal 1.003-1.03 5 [facility] Comment on above: Performed By: #### N UM ####[facility] ([id number])[address] [place] [address] UROBILINOGEN MARYJO 0.2 eu/dL Normal <1.[address] [facility] Comment on above: Performed By: #### N UM ####[facility] ([id number])[address] [place] [address] 96906 BASIC METABOLIC PANLon 06-25 Anion gap [Moles/Vol] 10 mmol/L Normal 5-15 [facility] Comment on above: Performed By: #### C NATIVIDAD BMP, 12850-8 ####[facility] ([id number])[address] [place] [address] 70419 Calcium [Mass/Vol] 8.7 mg/dL Normal 8.5-10.5 [facility] Comment on above: Performed By: #### C NATIVIDAD BMP, 85978-0 ####[facility] ([id number])[address] [place] [address] 27528 Chloride [Moles/Vol] 97 mmol/L Low 98-109 [facility] Comment on above: Performed By: #### C NATIVIDAD BMP, 60079-3 ####[facility] ([id number])[address] [place] [address] 16298 CO2 [Moles/Vol] 27 mmol/L Normal 22-32 [facility] Comment on above: Performed By: #### C BCA BMP, 33990-0 ####[facility] ([id number])[address] [place] [address] 86892 Creatinine [Mass/Vol] 1.42 mg/dL High 0.40-1.00 [facility] Comment on above: Result Comment: METH OD TRACEABLE TO IDMS STANDARD Performed By: #### C WILSON HENSON, 72425-1 ####[facility] ([id number])[address] [place] [address] 09503 GFR/1.73 sq M.predicted among non-blacks MDRD (S/P/Bld) [Vol rate/Area] 38 mL/min/{1.73_m2} Low >59 [facility] Comment on above: Result Comment: Repo rted eGFR is based on theCKD-EPI 2020 equation that doesnot use a race coefficient. Performed By: #### C WILSON HENSON, 97743-1 ####[facility] ([id number])[address] [place] [address] 77814 Glucose [Mass/Vol] 92 mg/dL Normal 65-99 [facility] Comment on above: Performed By: #### C WILSON HENSON, 26596-4 ####[facility] ([id number])[address] [place] [address] 39270 Potassium [Moles/Vol] 4.6 mmol/L Normal 3.5-5.0 [facility] Comment on above: Performed By: #### C WILSON HENSON, 08548-1 ####[facility] ([id number])[address] [place] [address] 63271 Sodium [Moles/Vol] 134 mmol/L Normal 134-146 [facility] Comment on above: Performed By: #### C WILSON HENSON, 97957-2 ####[facility] ([id number])[address] [place] [address] 16920 Urea nitrogen [Mass/Vol] 24 mg/dL Normal 5-27 [facility] Comment on above: Performed By: #### C WILSON HENSON, 65217-4 ####[facility] ([id number])[address] [place] [address] 08248 CBC AND AUTO DIFFon 06-25-20 24 ABSOLUTE BASOPHIL 0.1 X10E9/L Normal 0.0-0.2 [facility] Comment on above: Performed By: #### WILSON Maravilla BCA, 33245-7 ####[facility] ([id number])[address] [place] [address] 98977 ABSOLUTE NEUTROPHIL 9.0 X10E9/L High 1.5-6.6 [facility] Comment on above: Performed By: #### WILSON Maravilla BCA, 33831-0 ####[facility] ([id number])[address] [place] [address] 59171 Basophils/100 WBC (Bld) 0.6 % Normal [facility] Comment on above: Performed By: #### WILSON aMravilla BCA, 58659-2 ####[facility] ([id number])[address] [place] [address] 27489 Eosinophils (Bld) [#/Vol] 0.0 10*3/uL Normal 0.0-0.4 [facility] Comment on above: Performed By: #### WILSON Maravilla BCA, 28424-6 ####[facility] ([id number])[address] [place] [address] 08863 Eosinophils/100 WBC (Bld) 0.2 % Normal [facility] Comment on above: Performed By: #### WILSON Maravilla BCA, 66029-1 ####[facility] ([id number])[address] [place] [address] 51677 Erythrocyte distribution width (RBC) [Ratio] 15.7 % High 11.5-15.0 [facility] Comment on above: Performed By: #### C WILSON HENSON, 07815-7 ####[facility] ([id number])[address] [place] [address] 56779 Hematocrit (Bld) [Volume fraction] 31.0 % Low 35-47 [facility] Comment on above: Performed By: #### C WILSON HENSON, 82986-0 ####[facility] ([id number])[address] [place] [address] 32290 Hemoglobin (Bld) [Mass/Vol] 10.1 g/dL Low 11.7-15.5 [facility] Comment on above: Performed By: #### WILSON Maravilla BCA, 93265-0 ####[facility] ([id number])[address] [place] [address] 59594 Lymphocytes (Bld) [#/Vol] 1.2 10*3/uL Normal 1.0-3.5 [facility] Comment on above: Performed By: #### C WILSON HENSON, 58864-4 ####[facility] ([id number])[address] [place] [address] 65122 Lymphocytes/100 WBC (Bld) 10.4 % Normal [facility] Comment on above: Performed By: #### WILSON Maravilla BCA, 40910-4 ####[facility] ([id number])[address] [place] [address] 91933 MCH (RBC) [Entitic mass] 28.1 pg Normal 27-34 [facility] Comment on above: Performed By: #### C WILSON HENSON, 06684-1 ####[facility] ([id number])[address] [place] [address] 43606 MCHC (RBC) [Mass/Vol] 32.6 g/dL Normal 32-36 [facility] Comment on above: Performed By: #### WILSON Maravilla BCA, 10853-8 ####[facility] ([id number])[address] [place] [address] 19535 MCV (RBC) [Entitic vol] 86 fL Normal 80-100 [facility] Comment on above: Performed By: #### WILSON Maravilla BCA, 39285-7 ####[facility] ([id number])[address] [place] [address] 66921 Monocytes (Bld) [#/Vol] 1.1 10*3/uL High 0-0.9 [facility] Comment on above: Performed By: #### WILSON Maravilla BCA, 61352-4 ####[facility] ([id number])[address] [place] [address] 10903 Monocytes/100 WBC (Bld) 9.6 % Normal [facility] Comment on above: Performed By: #### WILSON Maravilla BCA, 71385-2 ####[facility] ([id number])[address] [place] [address] 32525 Neutrophils/100 WBC (Bld) 79.2 % Normal [facility] Comment on above: Performed By: #### Renita HENSON [facility], 84163-0 ####[facility] ([id number])[address] [place] [address] 63782 Platelet mean volume (Bld) [Entitic vol] 8.1 fL Normal 7-12 [facility] Comment on above: Performed By: #### WILSON Maravilla BCA, 76064-4 ####[facility] ([id number])[address] [place] [address] 06230 Platelets (Bld) [#/Vol] 216 10*3/uL Normal 150-450 [facility] Comment on above: Performed By: #### WILSON Maravilla BCA, 59643-7 ####[facility] ([id number])[address] [place] [address] 23217 RBC COUNT 3.59 X10E12/L Low 3.80-5.20 [facility] Comment on above: Performed By: #### C WILSON HENSON, 28906-5 ####[facility] ([id number])[address] [place] [address] 07265 WBC (Bld) [#/Vol] 11.4 10*3/uL High 4.0-11.0 [facility] Comment on above: Performed By: #### C WILSON HENSON, 51144-4 ####[facility] ([id number])[address] [place] [address] 63573 Glucose Glucometer (BldC) [M ass/Vol]on 06-25-2024 Glucose [Mass/Vol] 159 mg/dL High 65-99 [facility] Glucose [Mass/Vol] 80 mg/dL Normal 65-99 [facility] SARS/FLU A+B/RSV by NAAT/Mol ecularon 06-25-2024 SARS/FLU A+B/RSV by NAAT/Molecular Normal [facility] Comment on above: Performed By: #### C OVFLR ####[facility] ([id number])[address] [place] [address] 59687 Troponin I.cardiac High sens itivity method [Mass/Vol]on 06-25-2024 1 HOUR TROP I, HIGH SENSITIVITY 10 ng/L Normal <16 [facility] Comment on above: Performed By: #### 8 9579-7 ####[facility] ([id number])[address] [place] [address] 47920 TROPONIN I, HIGH SENSITIVITY 9 ng/L Normal <16 [facility] Comment on above: Performed By: #### C WILSON HENSON, 64577-8 ####[facility] ([id number])[address] [place] [address] 96697 XR CHEST 1 VWon 06-25-2024 XR CHEST 1 VW Normal [facility] POCT urinalysis dipstick onl stevenn 02-09-2024 Appearance (U) cloudy [facility] External Poct Urine Bilirubin Negative [facility]ct Urine Blood Trace [facility] External Poct Urine Color yellow [facility] External [facility]ct Urine Glucose Negative [facility]ct Urine Ketones Negative [facility] Urine Leukocyte Esterase 2+ [facility] Urine Nitrite Positive [facility] Urine Ph 6.5 [facility] Urine Protein Trace [facility] Urine Specific Manley 1.020 [facility] Urine Urobilinogen 0.2 [facility] CT CARDIAC W C STC MORP CARD ONLYon 01-18-2023 CT CARDIAC W C STC MORP CARD ONLY EXAMINATION: CT HEART WITH [...] valve measurements were analyzed and provided by [employer] and are reported separately to the cardiology department. 3. Severe triple-vessel coronary artery calcifications. 4. Small sliding hiatal hernia. Interpreted by: Ning Parra MD Signed by: Ning Parra MD 01/18/23 Final result Normal [facility] CTA CHEST ABDOMEN PELVIS W C [facility] 01-15-2023 CTA CHEST ABDOMEN PELVIS W [...] with a couple of ill-defined sclerotic foci. SENIOR TAX ANALYST shunt tubing in the right neck and [...] colon without convincing evidence of bowel obstruction. Peritoneum/Retroperitoneum: There is no bulky upper abdominal or retroperitoneal adenopathy. Very small fat containing umbilical hernia. SENIOR TAX ANALYST shunt tubing enters the abdomen in the [...] pelvis which may be related to the SENIOR TAX ANALYST shunt catheter. There is a cystic left [...] for planned (more content not included)... Normal [facility] No acute abnormality identified on CTA [...] recommended. 5 mm subpleural right lung nodule. SENIOR TAX ANALYST shunt noted. Small hiatal hernia. The findings [...] Findings Committee. J Am Janel Radiol 2010;7:754-773 [facility] R[facility]SOL[facility] EXAMINATION: CTA OF THE CHEST, [...] with a couple of ill-defined sclerotic foci. SENIOR TAX ANALYST shunt tubing in the right neck and [...] colon without convincing evidence of bowel obstruction. Peritoneum/Retroperitoneum: There is no bulky upper abdominal or retroperitoneal adenopathy. Very small fat containing umbilical hernia. SENIOR TAX ANALYST shunt tubing enters the abdomen in the [...] pelvis which may be related to the SENIOR TAX ANALYST shunt catheter. There is a cystic left [...] in the left flank and gluteal regions. [facility] Tato Syed MD - [...] with a couple of ill-defined sclerotic foci. SENIOR TAX ANALYST shunt tubing in the right neck and [...] colon without convincing evidence of bowel obstruction. Peritoneum/Retroperitoneum: There is no bulky upper abdominal or retroperitoneal adenopathy. Very small fat containing umbilical hernia. SENIOR TAX ANALYST shunt tubing enters the abdomen in the [...] pelvis which may be related to the SENIOR TAX ANALYST shunt catheter. There is a cystic left [...] and gluteal regions. (more content not included)... [employer] Work Phone: CTA CHEST ABDOMEN PELVIS W C ONTRASTOrdered By: Tato Syed on 01-15-2023 [employer] Phone: PULMONARY FUNCTIONon 023 [address] [address] PULMONARY FUNCTION PATIENT NAME: CUCA GOODWIN : 1945 MED REC NO: [id number] ROOM: ACCOUNT NO: [id number] ADMIT DATE: 01/13/2023 PROVIDER: Whit Maloney DATE [...] bronchial asthma. Clinical correlation is recommended. WHIT ALBARRANADDA [id number] Doc#: [id number] CC: [facility] CTA CHEST [facility]BDOMEN PELVIS [facility] Radiology Study observation (narrative) [facility] [employer] Work Phone: POC Glucose Fingerstickon Glucose [Mass/Vol] 104 mg/dL 65 - 105 mg/dL [facility] [employer] [facility] [employer] Basic Metabolic Panelon 11-16 Anion gap [Moles/Vol] 11 mmol/L 9 - 17 mmol/L [facility] Calcium [Mass/Vol] 9.0 mg/dL 8.6 - 10.4 mg/dL [facility] [employer] Chloride [Moles/Vol] 105 mmol/L 98 - 107 mmol/L [facility] CO2 [Moles/Vol] 20 mmol/L 20 - 31 mmol/L [facility] Creatinine [Mass/Vol] 1.04 mg/dL High 0.50 - 0.90 mg/dL [facility] GFR/1.73 sq M.predicted MDRD (S/P/Bld) [Vol rate/Area] 56 mL/min/{1.73_m2} Low - PINF [facility] Comment on above: These results are not [...] 131 mg/dL High 70 - 99 mg/dL [facility] Interpretation and review of laboratory results Abnormal [facility] Potassium [Moles/Vol] 4.3 mmol/L 3.7 - 5.3 mmol/L [facility] Sodium [Moles/Vol] 136 mmol/L 135 - 144 mmol/L [facility] Urea nitrogen (BldV) [Mass/Vol] 17 mg/dL 8 - 23 mg/dL [facility] Basic Metabolic Profon 12-10 Anion gap [Moles/Vol] 11 mmol/L Normal 9-17 [facility] Comment on above: Performed By: #### H H, BMPX #### [email or web address] [address] [place] [address]146 Drilling Foreman: Luis Solis MD Calcium [Mass/Vol] 9.0 mg/dL Normal 8.6-10.4 [facility] Comment on above: Performed By: #### H H, BMPX #### [facility] [employer] [address] [place] [address]161 Drilling Foreman: Luis Solis MD Chloride [Moles/Vol] 105 mmol/L Normal 98-107 [facility] Comment on above: Performed By: #### H H, BMPX #### [facility] [employer] [address] [place] [address] 39441 Drilling Foreman: Luis Solis MD CO2 [Moles/Vol] 20 mmol/L Normal 20-31 [facility] Comment on above: Performed By: #### H H, BMPX #### [email or web address] [address] [place] [address] 70480 Drilling Foreman: Luis Solis MD Creatinine [Mass/Vol] 1.04 mg/dL High 0.50-0.90 [facility] Comment on above: Performed By: #### H H, BMPX #### [email or web address] [address] [place] [address] 08958 Drilling Foreman: Luis Solis MD GFR/1.73 sq M.predicted among non-blacks MDRD (S/P/Bld) [Vol rate/Area] 56 mL/min/{1.73_m2} Low >60 [facility] Comment on above: Result Comment: These [...] Performed By: #### H H, BMPX #### [email or web address] [address] [place] [address] 09449 Drilling Foreman: Luis Solis MD Glucose [Mass/Vol] 131 mg/dL High 70-99 [facility] Comment on above: Performed By: #### H H, BMPX #### [facility] [employer] [address] [place] [address] 33046 Drilling Foreman: Luis Solis MD Potassium [Moles/Vol] 4.3 mmol/L Normal 3.7-5.3 [facility] Comment on above: Performed By: #### H H, BMPX #### [facility] [employer] [address] [place] [address] 21047 Drilling Foreman: Luis Solis MD Sodium [Moles/Vol] 136 mmol/L Normal 135-144 [facility] Comment on above: Performed By: #### H H, BMPX #### [facility] [address] [place] [address] 62156 Drilling Foreman: Luis Solis MD Urea nitrogen [Mass/Vol] 17 mg/dL Normal 8-23 [facility] Comment on above: Performed By: #### H H, BMPX #### [facility] [employer] [address] [place] [address] 36926 Drilling Foreman: Luis Solis MD Hemoglobin and Hematocriton 12-10-2022 Hematocrit (Bld) [Volume fraction] 25.5 % Low 36.3 - 47.1 % [facility] Hemoglobin (Bld) [Mass/Vol] 7.9 g/dL Low 11.9 - 15.1 g/dL [facility] Interpretation and review of laboratory results Abnormal [facility] Hgb/Hcton 12-10-2022 Hematocrit (Bld) [Volume fraction] 25.5 % Low 36.3-47.1 [facility] Comment on above: Performed By: #### H H, BMPX #### [facility] [address] [place], [place] [id number] Drilling Foreman: Luis Solsi MD Hemoglobin (Bld) [Mass/Vol] 7.9 g/dL Low 11.9-15.1 [facility] Comment on above: Performed By: #### H H, BMPX #### [employer] [address] [place] [address] Drilling Foreman: Luis Solis MD Laboratory - Blood bankon Blood product type Nom (BPU) Leukocyte Reduced Red Cell [facility] No Panel Informationon 12-10 Blood Bank ISBT Product Blood Type 9500 [facility] Blood Bank Unit Type and Rh Negative [facility] Crossmatch Result [facility] Dispense Status TRANSFUSED [facility] Transfusion Status OK TO TRANSFUSE [facility] Unit Divison 0 [facility] POC Glucose Fingerstickon Glucose [Mass/Vol] 105 mg/dL 65 - 105 mg/dL [facility] Glucose [Mass/Vol] 119 mg/dL High 65 - 105 mg/dL [facility] Interpretation and review of laboratory results Abnormal [facility] Glucose [Mass/Vol] 159 mg/dL High 65 - 105 mg/dL [facility] Interpretation and review of laboratory results Abnormal [facility] Glucose [Mass/Vol] 70 mg/dL 65 - 105 mg/dL [facility] Glucose [Mass/Vol] 41 mg/dL Low 65 - 105 mg/dL [facility] Comment on above: Critical Noted Interpretation and review of laboratory results Abnormal [facility] TYPE AND SCREENon 12-10-2022 ABO/Rh Negative [facility] Arm Band Number [id number] [facility] Blood Bank Blood Product Expiration Date [facility] Blood Bank Blood Product Expiration Date [facility] Blood Bank Blood Product Expiration Date [facility] Blood product unit ID (Dose) [#] [id number] [facility] Blood product unit ID (Dose) [#] [id number] [facility] Blood product unit ID (Dose) [#] [id number] [facility] Expiration Date 12/10/2022,2359 [facility] Product Code Blood Bank [id number] [facility] Product Code Blood Bank [id number] [facility] Product Code Blood Bank [id number] [facility] Unit Issue Date/Time [id number] [facility] Unit Issue Date/Time [id number] [facility] Unit Issue Date/Time [id number] [facility] Basic Metab w/rfx MGon 12-09 Anion gap [Moles/Vol] 10 mmol/L Normal 9-17 [facility] Comment on above: Performed By: #### H H, BMPX #### [employer] [address] [place], [place] [phone] Drilling Foreman: Luis Solis MD Calcium [Mass/Vol] 8.6 mg/dL Normal 8.6-10.4 [facility] Comment on above: Performed By: #### H H, BMPX #### [facility] [address] [place] [address] [phone] Drilling Foreman: Luis Solis MD Chloride [Moles/Vol] 106 mmol/L Normal 98-107 [facility] Comment on above: Performed By: #### H H, BMPX #### [facility] [address] [place] [address] Drilling Foreman: Luis Solis MD CO2 [Moles/Vol] 21 mmol/L Normal 20-31 [facility] Comment on above: Performed By: #### H H, BMPX #### [facility] [address] [place] [address] Drilling Foreman: Luis Solis MD Creatinine [Mass/Vol] 1.33 mg/dL High 0.50-0.90 [facility] Comment on above: Performed By: #### H H, BMPX #### [address] [address] Drilling Foreman: Luis Solis MD GFR/1.73 sq M.predicted among non-blacks MDRD (S/P/Bld) [Vol rate/Area] 41 mL/min/{1.73_m2} Low >60 [facility] Comment on above: Result Comment: Effective [...] Performed By: #### H H, BMPX #### [facility] [address] [place] [address] Drilling Foreman: Luis Solis MD Glucose [Mass/Vol] 102 mg/dL High 70-99 [facility] Comment on above: Performed By: #### H H, BMPX #### [facility] [employer] [address] [place] [address] Drilling Foreman: Luis Solis MD Potassium [Moles/Vol] 4.1 mmol/L Normal 3.7-5.3 [facility] Comment on above: Performed By: #### H H, BMPX #### [facility] [address] [place], [place] [phone] Drilling Foreman: Luis Solis MD Sodium [Moles/Vol] 137 mmol/L Normal 135-144 [facility] Comment on above: Performed By: #### H H, BMPX #### [facility] [address] [place], [place] [phone] Drilling Foreman: Luis Solis MD Urea nitrogen [Mass/Vol] 19 mg/dL Normal 8-23 [facility] Comment on above: Performed By: #### H H, BMPX #### [facility] [address] [place], [place] [phone] Drilling Foreman: Luis Solis MD Basic Metabolic Panel w/ Ref pierre to MGon 12-09-2022 Anion gap [Moles/Vol] 10 mmol/L 9 - 17 mmol/L [facility] [employer] Calcium [Mass/Vol] 8.6 mg/dL 8.6 - 10.4 mg/dL [facility] Chloride [Moles/Vol] 106 mmol/L 98 - 107 mmol/L [facility] [employer] CO2 [Moles/Vol] 21 mmol/L 20 - 31 mmol/L [facility] [employer] Creatinine [Mass/Vol] 1.33 mg/dL High 0.50 - 0.90 mg/dL [facility] GFR/1.73 sq M.predicted MDRD (S/P/Bld) [Vol rate/Area] 41 mL/min/{1.73_m2} Low - PINF [facility] Comment on above: Effective Aug 17, 2022 [...] 102 mg/dL High 70 - 99 mg/dL [facility] Interpretation and review of laboratory results Abnormal [facility] Potassium [Moles/Vol] 4.1 mmol/L 3.7 - 5.3 mmol/L [facility] Sodium [Moles/Vol] 137 mmol/L 135 - 144 mmol/L [facility] Urea nitrogen (BldV) [Mass/Vol] 19 mg/dL 8 - 23 mg/dL [facility] Hemoglobin and Hematocriton 12-09-2022 Hematocrit (Bld) [Volume fraction] 25.6 % Low 36.3 - 47.1 % [facility] Hemoglobin (Bld) [Mass/Vol] 8.0 g/dL Low 11.9 - 15.1 g/dL [facility] Interpretation and review of laboratory results Abnormal [facility] Hematocrit (Bld) [Volume fraction] 23.5 % Low 36.3 - 47.1 % [facility] Hemoglobin (Bld) [Mass/Vol] 7.1 g/dL Low 11.9 - 15.1 g/dL [facility] Interpretation and review of laboratory results Abnormal [facility] Hgb/Hcton 12-09-2022 Hematocrit (Bld) [Volume fraction] 25.6 % Low 36.3-47.1 [facility] Comment on above: Performed By: #### H H, BMPX #### [facility] [address] [place] [address] Drilling Foreman: Luis Solis MD Hemoglobin (Bld) [Mass/Vol] 8.0 g/dL Low 11.9-15.1 [facility] Comment on above: Performed By: #### H H, BMPX #### [facility] [address] [place], [place] [phone] Drilling Foreman: Luis Solis MD Hematocrit (Bld) [Volume fraction] 23.5 % Low 36.3-47.1 [facility] Comment on above: Performed By: #### H H, BMPX #### [employer] [facility] [place], [place] [phone] Drilling Foreman: Luis Solis MD Hemoglobin (Bld) [Mass/Vol] 7.1 g/dL Low 11.9-15.1 [facility] Comment on above: Performed By: #### H H, BMPX #### [employer] [employer] [address] [place] [address] [phone] Drilling Foreman: Luis Solis MD POC Glucose Fingerstickon Glucose [Mass/Vol] 143 mg/dL High 65 - 105 mg/dL [facility] Interpretation and review of laboratory results Abnormal [facility] Glucose [Mass/Vol] 96 mg/dL 65 - 105 mg/dL [facility] Glucose [Mass/Vol] 114 mg/dL High 65 - 105 mg/dL [facility] Interpretation and review of laboratory results Abnormal [facility] Glucose [Mass/Vol] 111 mg/dL High 65 - 105 mg/dL [facility] Interpretation and review of laboratory results Abnormal [facility] Type + Screenon 12-09-2022 Type + Screen Sample Expiration 12/10/2022,2359 Arm Band Number [id number] ABO/Rh(D) O NEGATIVE Antibody Screen NEGATIVE Unit Number [id number] Blood Component Type Leukocyte Reduced Red Cell Unit Division 00 Status of Unit TRANSFUSED Transfusion Status OK TO TRANSFUSE Crossmatch Result COMPATIBLE Unit Number [id number] Blood Component Type Leukocyte Reduced Red Cell Unit Division 00 Status of Unit TRANSFUSED Transfusion Status OK TO TRANSFUSE Crossmatch Result COMPATIBLE Unit Number [id number] Blood Component Type Leukocyte Reduced Red Cell Unit Division 00 Status of Unit TRANSFUSED Transfusion Status OK TO TRANSFUSE Crossmatch Result COMPATIBLE Normal [facility] Comment on above: Performed By: #### R EJEC, BMPX #### [email or web address] [address] [place] [address] [phone] Drilling Foreman: Luis Solis MD Basic Metab w/rfx MGon 12-08 Anion gap [Moles/Vol] 9 mmol/L Normal 9-17 [facility] Comment on above: Performed By: #### R EJEC, BMPX #### [address] [address] Drilling Foreman: Luis Solis MD Calcium [Mass/Vol] 8.6 mg/dL Normal 8.6-10.4 [facility] Comment on above: Performed By: #### R EJEC, BMPX #### [address] [address] Drilling Foreman: Luis Solis MD Chloride [Moles/Vol] 106 mmol/L Normal 98-107 [facility] Comment on above: Performed By: #### R CHTIO, BMPX #### [facility] [employer] [address] [place] [address] Drilling Foreman: Luis Solis MD CO2 [Moles/Vol] 24 mmol/L Normal 20-31 [facility] Comment on above: Performed By: #### R EJEC, BMPX #### [facility] [address] [place] [address] Drilling Foreman: Luis Solis MD Creatinine [Mass/Vol] 1.33 mg/dL High 0.50-0.90 [facility] Comment on above: Performed By: #### R EJEC, BMPX #### [facility] [address] [place] [address] Drilling Foreman: Luis Solis MD GFR/1.73 sq M.predicted among non-blacks MDRD (S/P/Bld) [Vol rate/Area] 41 mL/min/{1.73_m2} Low >60 [facility] Comment on above: Result Comment: Effective [...] affects renal tubular secretion. Performed By: #### Madeline DALE, BMPX #### [employer] [address] [place] [address] Drilling Foreman: Luis Solis MD Glucose [Mass/Vol] 160 mg/dL High 70-99 [facility] Comment on above: Performed By: #### Madeline DALE BMPX #### [employer] [address] [place] [address] Drilling Foreman: Luis Solis MD Potassium [Moles/Vol] 4.4 mmol/L Normal 3.7-5.3 [facility] Comment on above: Performed By: #### Madeline DALE, BMPX #### [employer] [address] [place] [address] Drilling Foreman: Luis Solis MD Sodium [Moles/Vol] 139 mmol/L Normal 135-144 [facility] Comment on above: Performed By: #### R CHITO, BMPX #### [email or web address] [address] [place] [address] Drilling Foreman: Luis Solis MD Urea nitrogen [Mass/Vol] 21 mg/dL Normal 8-23 [facility] Comment on above: Performed By: #### R CHITO, BMPX #### [employer] [address] [place] [address] Drilling Foreman: Luis Solis MD Basic Metabolic Panelon - Anion gap [Moles/Vol] 7 mmol/L Low 9 - 17 mmol/L [facility] Calcium [Mass/Vol] 8.5 mg/dL Low 8.6 - 10.4 mg/dL [facility] Chloride [Moles/Vol] 110 mmol/L High 98 - 107 mmol/L [facility] CO2 [Moles/Vol] 25 mmol/L 20 - 31 mmol/L [facility] Creatinine [Mass/Vol] 1.43 mg/dL High 0.50 - 0.90 mg/dL [facility] GFR/1.73 sq M.predicted MDRD (S/P/Bld) [Vol rate/Area] 38 mL/min/{1.73_m2} Low - PINF [facility] Comment on above: Effective Aug 17, [...] 124 mg/dL High 70 - 99 mg/dL [facility] Interpretation and review of laboratory results Abnormal [facility] Potassium [Moles/Vol] 4.7 mmol/L 3.7 - 5.3 mmol/L [facility] Sodium [Moles/Vol] 142 mmol/L 135 - 144 mmol/L [facility] Urea nitrogen (BldV) [Mass/Vol] 23 mg/dL 8 - 23 mg/dL [facility] Basic Metabolic Panel w/ Ref pierre to MGon 12-08-2022 Anion gap [Moles/Vol] 9 mmol/L 9 - 17 mmol/L [facility] Calcium [Mass/Vol] 8.6 mg/dL 8.6 - 10.4 mg/dL [facility] Chloride [Moles/Vol] 106 mmol/L 98 - 107 mmol/L [facility] CO2 [Moles/Vol] 24 mmol/L 20 - 31 mmol/L [facility] Creatinine [Mass/Vol] 1.33 mg/dL High 0.50 - 0.90 mg/dL [facility] GFR/1.73 sq M.predicted MDRD (S/P/Bld) [Vol rate/Area] 41 mL/min/{1.73_m2} Low - PINF [facility] Comment on above: Effective Aug 17, [...] 160 mg/dL High 70 - 99 mg/dL [facility] Interpretation and review of laboratory results Abnormal [facility] Potassium [Moles/Vol] 4.4 mmol/L 3.7 - 5.3 mmol/L [facility] Sodium [Moles/Vol] 139 mmol/L 135 - 144 mmol/L [facility] Urea nitrogen (BldV) [Mass/Vol] 21 mg/dL 8 - 23 mg/dL [facility] Basic Metabolic Profon 12-08 Anion gap [Moles/Vol] 7 mmol/L Low 9-17 [facility] Comment on above: Performed By: #### B FAITH CBC #### [email or web address] [address] [place] [address] Drilling Foreman: Luis Solis MD Calcium [Mass/Vol] 8.5 mg/dL Low 8.6-10.4 [facility] Comment on above: Performed By: #### B FAITH, CBC #### [email or web address] [address] [place] [address] [phone] Drilling Foreman: Luis Solis MD Chloride [Moles/Vol] 110 mmol/L High 98-107 [facility] Comment on above: Performed By: #### B FAITH, CBC #### [email or web address] [address] [place] [address] [phone] Drilling Foreman: Luis Solis MD CO2 [Moles/Vol] 25 mmol/L Normal 20-31 [facility] Comment on above: Performed By: #### B MP, CBC #### [facility] [address] [place] [address] Drilling Foreman: Luis Solis MD Creatinine [Mass/Vol] 1.43 mg/dL High 0.50-0.90 [facility] Comment on above: Performed By: #### B MP, CBC #### [facility] [address] [place] [address] Drilling Foreman: Luis Solis MD GFR/1.73 sq M.predicted among non-blacks MDRD (S/P/Bld) [Vol rate/Area] 38 mL/min/{1.73_m2} Low >60 [facility] Comment on above: Result Comment: Effective [...] renal tubular secretion. Performed By: #### B FAITH, CBC #### [facility] [address] [place] [address] Drilling Foreman: Luis Solis MD Glucose [Mass/Vol] 124 mg/dL High 70-99 [facility] Comment on above: Performed By: #### B MP, CBC #### [facility] [address] [place] [address] Drilling Foreman: Luis Solis MD Potassium [Moles/Vol] 4.7 mmol/L Normal 3.7-5.3 [facility] Comment on above: Performed By: #### B MP, CBC #### [facility] [address] [place] [address] Drilling Foreman: Luis Solis MD Sodium [Moles/Vol] 142 mmol/L Normal 135-144 [facility] Comment on above: Performed By: #### B MP, CBC #### [address] [address] Drilling Foreman: Luis Solis MD Urea nitrogen [Mass/Vol] 23 mg/dL Normal 8-23 [facility] Comment on above: Performed By: #### B MP, CBC #### [address] [address] Drilling Foreman: Luis Solis MD CBCon 12-08-2022 Erythrocyte distribution width (RBC) [Ratio] 17.8 % High 11.8-14.4 [facility] Comment on above: Performed By: #### B MP, CBC #### [facility] [address] [place] [address] Drilling Foreman: Luis Solis MD Hematocrit (Bld) [Volume fraction] 22.0 % Low 36.3-47.1 [facility] Comment on above: Performed By: #### B MP, CBC #### [address] [address] Drilling Foreman: Luis Solis MD Hemoglobin (Bld) [Mass/Vol] 6.6 g/dL Critically low 11.9-15.1 [facility] Comment on above: Performed By: #### B MP, CBC #### [address] [address] Drilling Foreman: Luis Solis MD MCH (RBC) [Entitic mass] 27.5 pg Normal 25.2-33.5 [facility] Comment on above: Performed By: #### B MP, CBC #### [facility] [address] [place] [address] Drilling Foreman: Luis Solis MD MCHC (RBC) [Mass/Vol] 30.0 g/dL Normal 28.4-34.8 [facility] Comment on above: Performed By: #### B MP, CBC #### [address] [address] Drilling Foreman: Luis Solis MD MCV (RBC) [Entitic vol] 91.7 fL Normal 82.6-102.9 [facility] Comment on above: Performed By: #### B MP, CBC #### [address] [address] Drilling Foreman: Luis Solis MD NRBC Automated 0.0 per 100 WBC Normal 0.0 [facility] Comment on above: Performed By: #### B MP, CBC #### [address] [address] Drilling Foreman: Luis Solis MD Platelet mean volume (Bld) [Entitic vol] 10.3 fL Normal 8.1-13.5 [facility] Comment on above: Performed By: #### B MP, CBC #### [address] [address] Drilling Foreman: Luis Solis MD Platelets (Bld) [#/Vol] 250 10*3/uL Normal 138-453 [facility] Comment on above: Performed By: #### B MP, CBC #### [address] [address] Drilling Foreman: Luis Solis MD RBC (Bld) [#/Vol] 2.40 10*6/uL Low 3.95-5.11 [facility] Comment on above: Performed By: #### B MP, CBC #### [address] [address] Drilling Foreman: Luis Solis MD WBC (Bld) [#/Vol] 9.2 10*3/uL Normal 3.5-11.3 [facility] Comment on above: Performed By: #### B MP, CBC #### [address] [address] Drilling Foreman: Luis Solis MD Hematocrit (Bld) [Volume fraction] 22.0 % Low 36.3 - 47.1 % [facility] Hemoglobin (Bld) [Mass/Vol] 6.6 g/dL Critically low 11.9 - 15.1 g/dL [facility] Interpretation and review of laboratory results Abnormal [facility] MCH (RBC) [Entitic mass] 27.5 pg 25.2 - 33.5 pg [facility] MCHC (RBC) [Mass/Vol] 30.0 g/dL 28.4 - 34.8 g/dL [facility] MCV (RBC) [Entitic vol] 91.7 fL 82.6 - 102.9 fL [facility] NRBC Automated 0.0 0.0 per 100 WBC [facility] Platelet distribution width (Bld) [Ratio] 17.8 % High 11.8 - 14.4 % [facility] Platelet mean volume (Bld) [Entitic vol] 10.3 fL 8.1 - 13.5 fL [facility] Platelets (Bld) [#/Vol] 250 10*3/uL [facility] RBC (Bld) [#/Vol] 2.40 10*6/uL Low 3.95 - 5.11 m/uL [facility] WBC (Bld) [#/Vol] 9.2 10*3/uL [facility] Hemoglobin and Hematocriton 12-08-2022 Hematocrit (Bld) [Volume fraction] 24.4 % Low 36.3 - 47.1 % [facility] Hemoglobin (Bld) [Mass/Vol] 7.4 g/dL Low 11.9 - 15.1 g/dL [facility] Interpretation and review of laboratory results Abnormal [facility] Hematocrit (Bld) [Volume fraction] 24.6 % Low 36.3 - 47.1 % [facility] Hemoglobin (Bld) [Mass/Vol] 7.7 g/dL Low 11.9 - 15.1 g/dL [facility] Interpretation and review of laboratory results Abnormal [facility] Hematocrit (Bld) [Volume fraction] 22.9 % Low 36.3 - 47.1 % [facility] Hemoglobin (Bld) [Mass/Vol] 7.6 g/dL Low 11.9 - 15.1 g/dL [facility] Interpretation and review of laboratory results Abnormal [facility] Hematocrit (Bld) [Volume fraction] 21.9 % Low 36.3 - 47.1 % [facility] Hemoglobin (Bld) [Mass/Vol] 6.5 g/dL Critically low 11.9 - 15.1 g/dL [facility] Interpretation and review of laboratory results Abnormal [facility] Hgb/Hcton 12-08-2022 Hematocrit (Bld) [Volume fraction] 24.4 % Low 36.3-47.1 [facility] Comment on above: Performed By: #### R EJEC, BMPX #### [employer] [address] [place] [address] Drilling Foreman: Luis Solis MD Hemoglobin (Bld) [Mass/Vol] 7.4 g/dL Low 11.9-15.1 [facility] Comment on above: Performed By: #### R EJEC, BMPX #### [employer] [address] [place], [place] [phone] Drilling Foreman: Luis Solis MD Hematocrit (Bld) [Volume fraction] 24.6 % Low 36.3-47.1 [facility] Comment on above: Performed By: #### R EJEC, BMPX #### [employer] [address] [place] [address] [phone] Drilling Foreman: Luis Solis MD Hemoglobin (Bld) [Mass/Vol] 7.7 g/dL Low 11.9-15.1 [facility] Comment on above: Performed By: #### R EJEC, BMPX #### [employer] [address] [place] [phone] Drilling Foreman: Luis Solis MD Hematocrit (Bld) [Volume fraction] 22.9 % Low 36.3-47.1 [facility] Comment on above: Performed By: #### R EJEC, BMPX #### [facility] [address] [place] [address] Drilling Foreman: Luis Solis MD Hemoglobin (Bld) [Mass/Vol] 7.6 g/dL Low 11.9-15.1 [facility] Comment on above: Performed By: #### R ZAINABEC, BMPX #### [email or web address] [address] [place] [address] Drilling Foreman: Luis Solis MD Hematocrit (Bld) [Volume fraction] 21.9 % Low 36.3-47.1 [facility] Comment on above: Performed By: #### H H #### [email or web address] [address] [place] [address] Drilling Foreman: Luis Solis MD Hemoglobin (Bld) [Mass/Vol] 6.5 g/dL Critically low 11.9-15.1 [facility] Comment on above: Performed By: #### H H #### [email or web address] [address] [place] [address] Drilling Foreman: Luis Solis MD Hematocrit (Bld) [Volume fraction] 23.7 % Low 36.3-47.1 [facility] Comment on above: Performed By: #### R EJEC, BMPX #### [email or web address] [address] [place] [address] Drilling Foreman: Luis Solis MD Hemoglobin (Bld) [Mass/Vol] 7.6 g/dL Low 11.9-15.1 [facility] Comment on above: Performed By: #### R EJEC, BMPX #### [email or web address] [address] [place] [address] [phone] Drilling Foreman: Luis Solis MD POC Glucose Fingerstickon Glucose [Mass/Vol] 129 mg/dL High 65 - 105 mg/dL [facility] Interpretation and review of laboratory results Abnormal [facility] Glucose [Mass/Vol] 138 mg/dL High 65 - 105 mg/dL [facility] Interpretation and review of laboratory results Abnormal [facility] Glucose [Mass/Vol] 164 mg/dL High 65 - 105 mg/dL [facility] Interpretation and review of laboratory results Abnormal [facility] SPECIMEN REJECTIONon 023 Ordered Test [facility] Reason for Rejection Unable to perform testing: Specimen clotted. [facility] Specimen source Nom (Unsp spec) .BLOOD [facility] Specimen Rejectionon 023 Reason for rejection Unable to perform testing: Specimen clotted. [facility] Comment on above: Performed By: #### R EJEC, BMPX #### [employer] [address] [place] [address] [phone] Drilling Foreman: Luis Solis MD Source of sample .BLOOD [facility] Comment on above: Performed By: #### R EJEC, BMPX #### [employer] [address] [place] [address] [phone] Drilling Foreman: Luis Solis MD Test ordered [facility] Comment on above: Performed By: #### R EJEC, BMPX #### [employer] [facility] [place] [address] Drilling Foreman: Luis Solis MD Activated clotting timeon Activated Clotting Time 262 High [facility] Interpretation and review of laboratory results Abnormal [facility] CHLORIDE (POC)on 12-07-2022 Chloride [Moles/Vol] 107 mmol/L 98 - 107 mmol/L [facility] Catheterization and angiogra phy procedure details panelon 12-07-2022 [facility] [employer] Work Phone: Creatinine W/GFR Point of Ca reon 12-07-2022 Creatinine [Mass/Vol] 1.35 mg/dL High 0.51 - 1.19 mg/dL [facility] [employer] eGFR, POC 41 mL/min/1.7 3m2 [facility] [employer] Comment on above: Effective Aug 17, 2022 [...] 23.7 % Low 36.3 - 47.1 % [facility] Hemoglobin (Bld) [Mass/Vol] 7.6 g/dL Low 11.9 - 15.1 g/dL [facility] Interpretation and review of laboratory results Abnormal [facility] Hematocrit (Bld) [Volume fraction] 24.9 % Low 36.3 - 47.1 % [facility] Hemoglobin (Bld) [Mass/Vol] 7.2 g/dL Low 11.9 - 15.1 g/dL [facility] Interpretation and review of laboratory results Abnormal [facility] Hemoglobin and hematocrit, b loodon 12-07-2022 Hematocrit (Bld) [Volume fraction] 20 % Low 36 - 46 % [facility] Hemoglobin (Bld) [Mass/Vol] 6.9 g/dL Critically low 12.0 - 16.0 g/dL [facility] Interpretation and review of laboratory results Abnormal [facility] Hematocrit (Bld) [Volume fraction] 30 % Low 36 - 46 % [facility] Hemoglobin (Bld) [Mass/Vol] 10.1 g/dL Low 12.0 - 16.0 g/dL [facility] Hgb/Hcton 12-07-2022 Hematocrit (Bld) [Volume fraction] 24.9 % Low 36.3-47.1 [facility] Comment on above: Performed By: #### R EJEC, BMPX #### [facility] [address] [place], [place] [id number] Drilling Foreman: Luis Solis MD Hemoglobin (Bld) [Mass/Vol] 7.2 g/dL Low 11.9-15.1 [facility] Comment on above: Performed By: #### R EJEC, BMPX #### [facility] [address], [place] [phone] Drilling Foreman: Luis Solis MD No Panel Informationon 12-07 Interpretation and review of laboratory results Abnormal [facility] POC Glucose Fingerstickon Glucose [Mass/Vol] 197 mg/dL High 65 - 105 mg/dL [facility] Interpretation and review of laboratory results Abnormal [facility] Glucose [Mass/Vol] 101 mg/dL 65 - 105 mg/dL [facility] POCT Glucoseon 12-07-2022 Glucose [Mass/Vol] 83 mg/dL 74 - 100 mg/dL [facility] POCT urea (BUN)on 12-07-2022 Urea nitrogen [Mass/Vol] 25 mg/dL 8 - 26 mg/dL [facility] POTASSIUM (POC)on 12-07-2022 Potassium [Moles/Vol] 4.2 mmol/L 3.5 - 4.5 mmol/L [facility] SODIUM (POC)on 12-07-2022 Sodium [Moles/Vol] 142 mmol/L 138 - 146 mmol/L [facility] VL DUP LOWER EXTREMITY ARTER IES RIGHTon 12-07-2022 Darnell Monique MD - 12/07/2022 [facility] Vascular Lower Extremities Arterial Duplex Procedure Patient Name CHRISTA Date of Study 12/07/2022 [facility] Date of 1945 Gender Female Age 77 year(s) Race Room Number 0501 Height: 65 inch, 165.1 cm Corporate ID # [id number] Weight: 208 pounds, 94.3 kg Patient BSA: 2.01 m^2 BMI: 34.61 kg/m^2 MR # [id number] 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 Indications for Study:Groin pain s/p cardiac cath and Hematoma s/p cardiac cath. Patient Status:Out Patient. Technical Quality:Adequate visualization. Conclusions Summary No evidence of pseudoaneurysm in the right groin. Signature ------ ------ ------ ------ Findings: Right Impression: No evidence of pseudoaneurysm [...] are measured in cm LE Duplex Measurements +---------++-----+-----+----- -+----+------++---+-----+---- --+----+--------- + ! !!Right! !Left ! ! !! ! ! ! ! ! +---------++-----+-----+----- -+----+------++---+-----+---- --+----+--------- + !Location !!PSV !Ratio!Wave !AP !Trans !!PSV!Ratio!Wave !AP !Trans ! ! !! ! !Desc. !Diam!Diam !! ! !Desc. !Diam!Diam ! +---------++-----+-----+----- -+----+------++---+-----+---- --+----+--------- + !Dist EIA !!185 ! ! ! ! !! ! ! ! ! ! +---------++-----+-----+----- -+----+------++---+-----+---- --+----+--------- + !Common !!162 !0.88 ! ! ! !! ! ! ! ! ! !Femoral !! ! ! ! ! !! ! ! ! ! ! +---------++-----+-----+----- -+----+------++---+-----+---- --+----+--------- + !Prox SFA !!174 ! ! ! ! !! ! ! ! ! ! +---------++-----+-----+----- -+----+------++---+-----+---- --+----+--------- + [employer] Phone: Radiology Study observation (narrative) [employer] Phone: VL DUP LOWER EXTREMITY ARTER IES RIGHTOrdered By: Darnell Burk on 12-07-2022 [employer] Phone: CHLORIDE (POC)on 11-24-2022 Chloride [Moles/Vol] 105 mmol/L 98 - 107 mmol/L [facility] Creatinine W/GFR Point of Ca reon 11-24-2022 Creatinine [Mass/Vol] 1.5 mg/dL High 0.51 - 1.19 mg/dL [facility] eGFR, POC 36 mL/min/1.7 3m2 [facility] Comment on above: Effective Aug 17, 2022 [...] renal tubular secretion. Hemoglobin and hematocrit, b mychal 11-24-2022 Hematocrit (Bld) [Volume fraction] 26 % Low 36 - 46 % [facility] Hemoglobin (Bld) [Mass/Vol] 8.7 g/dL Low 12.0 - 16.0 g/dL [facility] No Panel Informationon 11-24 Interpretation and review of laboratory results Abnormal [facility] POCT Glucoseon 11-24-2022 Glucose [Mass/Vol] 135 mg/dL High 74 - 100 mg/dL [facility] POCT urea (BUN)on 11-24-2022 POC BUN Result not available. 8 - 26 mg/dL [facility] POTASSIUM (POC)on 11-24-2022 Potassium [Moles/Vol] 5.3 mmol/L High 3.5 - 4.5 mmol/L [facility] Platelet Counton 11-24-2022 Platelets (Bld) [#/Vol] 314 10*3/uL Normal 138-453 [facility] Comment on above: Performed By: #### P LT #### [facility] [address] [place] [address] [phone] Drilling Foreman: Luis Solis MD Platelets (Bld) [#/Vol] 314 10*3/uL [facility] SODIUM (POC)on 11-24-2022 Sodium [Moles/Vol] 142 mmol/L 138 - 146 mmol/L [facility] Cult,Bloodon 10-03-2022 Cult,Blood Specimen Description .BLOOD Special Requests L AC 10ML Culture NO GROWTH 5 DAYS Report Status FINAL 10/03/2022 [facility] Comment on above: Performed By: #### B C #### [facility] [address] [place] [address] [phone] Drilling Foreman: Luis Solis MD Cult,Blood Specimen Description .BLOOD Special Requests R AC 10ML Culture NO GROWTH 5 DAYS Report Status FINAL 10/03/2022 [facility] Comment on above: Performed By: #### H H, BMPX #### [facility] [address] [place] [address] [phone] Drilling Foreman: Luis Solis MD Basic Metab w/rfx MGon 09-30 Anion gap [Moles/Vol] 9 mmol/L Normal 9-17 [facility] Comment on above: Performed By: #### H H, BMPX #### [facility] [address] [place] [address] Drilling Foreman: Luis Solis MD Calcium [Mass/Vol] 8.8 mg/dL Normal 8.6-10.4 [facility] Comment on above: Performed By: #### H H, BMPX #### [facility] [address] [place] [address] Drilling Foreman: Luis Solis MD Chloride [Moles/Vol] 102 mmol/L Normal 98-107 [facility] Comment on above: Performed By: #### H H, BMPX #### [facility] [address] [place] [address] Drilling Foreman: Luis Solis MD CO2 [Moles/Vol] 28 mmol/L Normal 20-31 [facility] Comment on above: Performed By: #### H H, BMPX #### [facility] [address] [place] [phone] Drilling Foreman: Luis Solis MD Creatinine [Mass/Vol] 1.28 mg/dL High 0.50-0.90 [facility] Comment on above: Performed By: #### H H, BMPX #### [email or web address] [address] [place] [phone] Drilling Foreman: Luis Solis MD GFR/1.73 sq M.predicted among non-blacks MDRD (S/P/Bld) [Vol rate/Area] 43 mL/min/{1.73_m2} Low >60 [facility] Comment on above: Result Comment: Effective [...] Performed By: #### H H, BMPX #### [address] [address] Drilling Foreman: Luis Solis MD Glucose [Mass/Vol] 141 mg/dL High 70-99 [facility] Comment on above: Performed By: #### H H, BMPX #### [facility] [address] [place] [phone] Drilling Foreman: Luis Solis MD Potassium [Moles/Vol] 4.0 mmol/L Normal 3.7-5.3 [facility] Comment on above: Performed By: #### H H, BMPX #### [facility] [address] [place] [phone] Drilling Foreman: Luis Solis MD Sodium [Moles/Vol] 139 mmol/L Normal 135-144 [facility] Comment on above: Performed By: #### H H, BMPX #### [facility] [address] [place] [address] Drilling Foreman: Luis Solis MD Urea nitrogen [Mass/Vol] 18 mg/dL Normal 8-23 [facility] Comment on above: Performed By: #### H H, BMPX #### [facility] [address] [place] [address] Drilling Foreman: Luis Solis MD Cult,Urineon 09-30-2022 Cult,Urine Specimen Description .URINE,STRAIGHT CATHETER Culture ESCHERICHIA COLI >[id number] CFU/ML AEROCOCCUS URINAE 50 to 100,000 CFU/ML [...] Trimethoprim/Sulfa <=20 SUSCEPTIBLE Piperacillin/Tazobactam <=4 SUSCEPTIBLE Susceptible [facility] Comment on above: Performed By: #### H H, BMPX #### [email or web address] [place] [address] Drilling Foreman: Luis Solis MD APTTon 09-29-2022 aPTT Coag (Bld) [Time] 30.4 s Normal 20.5-30.5 [facility] Comment on above: Result Comment: IV Heparin Therapy Range: 48.6-77.8 Performed By: #### H H, BMPX #### [email or web address] [address] [place], [place] [phone] Drilling Foreman: Luis Solis MD Procalcitoninon 09-29-2022 Procalcitonin 0.23 ng/mL High <0.09 [facility] Comment on above: Result Comment: Suspected [...] entered into the Change in Procalcitonin Calculator ([email or web address]) to determine the patient's Mortality Risk Prognosis In healthy neonates, plasma Procalcitonin (PCT) concentrations increase gradually after , reaching peak values at about 24 hours of age then decrease to normal values below 0.5 ng/mL by 48-72 hours of age. Performed By: #### R EJEC, BMPX #### [email or web address] [address] [place] [phone] Drilling Foreman: Luis Solis MD APTTon 09-28-2022 aPTT Coag (Bld) [Time] 110.7 s Critically high 20.5-30.5 [facility] Comment on above: Result Comment: IV Heparin Therapy Range: 48.6-77.8 Performed By: #### P TT #### [address] [address] Drilling Foreman: Luis Solis MD aPTT Coag (Bld) [Time] 24.1 s Normal 20.5-30.5 [facility] Comment on above: Result Comment: IV Heparin Therapy Range: 48.6-77.8 Performed By: #### H H, BMPX #### [email or web address] [address] [place] [phone] Drilling Foreman: Luis Solis MD aPTT Coag (Bld) [Time] 22.6 s Normal 20.5-30.5 [facility] Comment on above: Result Comment: IV Heparin Therapy Range: 48.6-77.8 Performed By: #### H H, BMPX #### [email or web address] [address] [place] [address] Drilling Foreman: Luis Solis MD Basic Metab w/rfx MGon 09-28 Anion gap [Moles/Vol] 10 mmol/L Normal 9-17 [facility] Comment on above: Performed By: #### R EJEC, BMPX #### [email or web address] [address] [place] [address] Drilling Foreman: Luis Solis MD Calcium [Mass/Vol] 7.6 mg/dL Low 8.6-10.4 [facility] Comment on above: Performed By: #### R EJEC, BMPX #### [email or web address] [address] [place] [address]27 Drilling Foreman: Luis Solis MD Chloride [Moles/Vol] 107 mmol/L Normal 98-107 [facility] Comment on above: Performed By: #### R EJEC, BMPX #### [facility] [address] [place] [phone] Drilling Foreman: Luis Solis MD CO2 [Moles/Vol] 23 mmol/L Normal 20-31 [facility] Comment on above: Performed By: #### R CHITO, BMPX #### [email or web address] [address] [place] [address] Drilling Foreman: Luis Solis MD Creatinine [Mass/Vol] 1.33 mg/dL High 0.50-0.90 [facility] Comment on above: Performed By: #### R CHITO, BMPX #### [email or web address] [address] [place] [phone] Drilling Foreman: Luis Solis MD GFR/1.73 sq M.predicted among non-blacks MDRD (S/P/Bld) [Vol rate/Area] 41 mL/min/{1.73_m2} Low >60 [facility] Comment on above: Result Comment: Effective [...] renal tubular secretion. Performed By: #### R ZAINABEC, BMPX #### [email or web address] [address] [place] [address] Drilling Foreman: Luis Solis MD Glucose [Mass/Vol] 243 mg/dL High 70-99 [facility] Comment on above: Performed By: #### R EJEC, BMPX #### [facility] [address] [place] [address] Drilling Foreman: Luis Solis MD Potassium [Moles/Vol] 4.5 mmol/L Normal 3.7-5.3 [facility] Comment on above: Performed By: #### R CHITO, BMPX #### [facility] [address] [place] [address] Drilling Foreman: Luis Solis MD Sodium [Moles/Vol] 140 mmol/L Normal 135-144 [facility] Comment on above: Performed By: #### R CHITO, BMPX #### [facility] [address] [place] [address] Drilling Foreman: Luis Solis MD Urea nitrogen [Mass/Vol] 21 mg/dL Normal 8-23 [facility] Comment on above: Performed By: #### R CHITO, BMPX #### [facility] [address] [place] [phone] Drilling Foreman: Luis Solis MD Brain Natri. Peptideon 09-28 Natriuretic peptide B (Bld) [Mass/Vol] 5275 pg/mL High <300 [facility] Comment on above: Result Comment: An age-independent cutoff point of 300 pg/ml has a 98% negative predictive value excluding acute heart failure. Performed By: #### H H, BMPX #### [address] [address] Drilling Foreman: Luis Solis MD C-Reactive Proteinon CRP [Mass/Vol] 48.0 mg/L High 0.0-5.0 [facility] Comment on above: Performed By: #### R EJEC, BMPX #### [email or web address] [address] [place] [address] Drilling Foreman: Luis Solis MD CBC with Diffon 09-28-2022 Abs. Basophil 0.06 k/uL Normal 0.00-0.20 [facility] Comment on above: Performed By: #### H H, BMPX #### [facility] [address] [place] [address] Drilling Foreman: Luis Solis MD Abs.Imm.Granulocy te 0.16 k/uL Normal 0.00-0.30 [facility] Comment on above: Performed By: #### H H, BMPX #### [email or web address] [address] [place] [address] Drilling Foreman: Luis Solis MD Abs.Neutrophil (Seg) 10.78 k/uL High 1.50-8.10 [facility] Comment on above: Performed By: #### H H, BMPX #### [facility] [address] [place] [address] Drilling Foreman: Luis Solis MD Basophils/100 WBC (Bld) 1 % Normal 0-2 [facility] Comment on above: Performed By: #### H H, BMPX #### [facility] [address] [place] [address] Drilling Foreman: Luis Solis MD Eosinophils (Bld) [#/Vol] 0.20 10*3/uL Normal 0.00-0.44 [facility] Comment on above: Performed By: #### H H, BMPX #### [facility] [address] [place] [address] Drilling Foreman: Luis Solis MD Eosinophils/100 WBC (Bld) 2 % Normal 1-4 [facility] Comment on above: Performed By: #### H H, BMPX #### [email or web address] [address] [place] [phone] Drilling Foreman: Luis Solis MD Erythrocyte distribution width (RBC) [Ratio] 16.7 % High 11.8-14.4 [facility] Comment on above: Performed By: #### H H, BMPX #### [facility] [address] [place] [address] Drilling Foreman: Luis Solis MD Hematocrit (Bld) [Volume fraction] 27.2 % Low 36.3-47.1 [facility] Comment on above: Performed By: #### H H, BMPX #### [facility] [address] [place] [address] Drilling Foreman: Luis Solis MD Hemoglobin (Bld) [Mass/Vol] 8.1 g/dL Low 11.9-15.1 [facility] Comment on above: Performed By: #### H H, BMPX #### [facility] [address] [place] [address] Drilling Foreman: Luis Solis MD Immature granulocytes/100 WBC (Bld) 1 % High 0 [facility] Comment on above: Performed By: #### H H, BMPX #### [facility] [address] [place] [address] Drilling Foreman: Luis Solis MD Lymphocytes (Bld) [#/Vol] 0.74 10*3/uL Low 1.10-3.70 [facility] Comment on above: Performed By: #### H H, BMPX #### [facility] [address] [place] [address] Drilling Foreman: Luis Solis MD Lymphocytes/100 WBC (Bld) 6 % Low 24-43 [facility] Comment on above: Performed By: #### H H, BMPX #### [facility] [address] [place] [address] Drilling Foreman: Luis Solis MD MCH (RBC) [Entitic mass] 26.9 pg Normal 25.2-33.5 [facility] Comment on above: Performed By: #### H H, BMPX #### [address] [address] Drilling Foreman: Luis Solis MD MCHC (RBC) [Mass/Vol] 29.8 g/dL Normal 28.4-34.8 [facility] Comment on above: Performed By: #### H H, BMPX #### [address] [address] Drilling Foreman: Luis Solis MD MCV (RBC) [Entitic vol] 90.4 fL Normal 82.6-102.9 [facility] Comment on above: Performed By: #### H H, BMPX #### [address] [address] Drilling Foreman: Luis Solis MD Monocytes (Bld) [#/Vol] 0.78 10*3/uL Normal 0.10-1.20 [facility] Comment on above: Performed By: #### H H, BMPX #### [address] [address] Drilling Foreman: Luis Solis MD Monocytes/100 WBC (Bld) 6 % Normal 3-12 [facility] Comment on above: Performed By: #### H H, BMPX #### [address] [address] Drilling Foreman: Luis Solis MD Neutrophil (Seg) 84 % High 36-65 [facility] Comment on above: Performed By: #### H H, BMPX #### [address] [address] Drilling Foreman: Luis Solis MD NRBC Automated 0.2 per 100 WBC High 0.0 [facility] Comment on above: Performed By: #### H H, BMPX #### [address] [address] Drilling Foreman: Luis Solis MD Platelet mean volume (Bld) [Entitic vol] 9.9 fL Normal 8.1-13.5 [facility] Comment on above: Performed By: #### H H, BMPX #### [address] [address] Drilling Foreman: Luis Solis MD Platelets (Bld) [#/Vol] 391 10*3/uL Normal 138-453 [facility] Comment on above: Performed By: #### H H, BMPX #### [address] [address] Drilling Foreman: Luis Soils MD RBC (Bld) [#/Vol] 3.01 10*6/uL Low 3.95-5.11 [facility] Comment on above: Performed By: #### H H, BMPX #### [address] [address] Drilling Foreman: Luis Solis MD RBC morphology finding Nom (Bld) ANISOCYTOSIS PRESENT Normal [facility] Comment on above: Performed By: #### H H, BMPX #### [address] [address] Drilling Foreman: Luis Solis MD WBC (Bld) [#/Vol] 12.7 10*3/uL High 3.5-11.3 [facility] Comment on above: Performed By: #### H H, BMPX #### [address] [address] Drilling Foreman: Luis Solis MD CT CHEST PULMONARY EMBOLISM [...] COMPARISON: None HISTORY: ORDERING SYSTEM PROVIDED HISTORY: tachy, hypoxia TECHNOLOGIST PROVIDED HISTORY: Tachy, hypoxia Decision [...] Matthew Chong MD 09/28/22 Final result Normal [facility] Comp Metabolic Profon 2021 Albumin [Mass/Vol] 3.5 g/dL Normal 3.5-5.2 [facility] Comment on above: Performed By: #### H H, BMPX #### [address] [address] Drilling Foreman: Luis Solis MD Albumin/Glob Ratio 0.9 Low 1.0-2.5 [facility] Comment on above: Performed By: #### H H, BMPX #### [address] [address] Drilling Foreman: Luis Solis MD Alkaline Phos 104 U/L Normal 35-104 [facility] Comment on above: Performed By: #### H H, BMPX #### [address] [address] Drilling Foreman: Luis Solis MD ALT [Catalytic activity/Vol] 7 U/L Normal 5-33 [facility] Comment on above: Performed By: #### H H, BMPX #### [address] [address] Drilling Foreman: Luis Solis MD Anion gap [Moles/Vol] 13 mmol/L Normal 9-17 [facility] Comment on above: Performed By: #### H H, BMPX #### [address] [address] Drilling Foreman: Luis Solis MD AST [Catalytic activity/Vol] 15 U/L Normal <32 [facility] Comment on above: Performed By: #### H H, BMPX #### [facility] [address] [place] [address] Drilling Foreman: Luis Solis MD Bilirubin [Mass/Vol] 0.5 mg/dL Normal 0.3-1.2 [facility] Comment on above: Performed By: #### H H, BMPX #### [facility] [address] [place] [address] Drilling Foreman: Luis Solis MD Calcium [Mass/Vol] 8.5 mg/dL Low 8.6-10.4 [facility] Comment on above: Performed By: #### H H, BMPX #### [facility] [address] [place] [address] Drilling Foreman: Luis Solis MD Chloride [Moles/Vol] 102 mmol/L Normal 98-107 [facility] Comment on above: Performed By: #### H H, BMPX #### [facility] [address] [place] [address] Drilling Foreman: Luis Solis MD CO2 [Moles/Vol] 24 mmol/L Normal 20-31 [facility] Comment on above: Performed By: #### H H, BMPX #### [facility] [address] [place] [address] Drilling Foreman: Luis Solis MD Creatinine [Mass/Vol] 1.62 mg/dL High 0.50-0.90 [facility] Comment on above: Performed By: #### H H, BMPX #### [facility] [address] [place] [address] Drilling Foreman: Luis Solis MD GFR/1.73 sq M.predicted among non-blacks MDRD (S/P/Bld) [Vol rate/Area] 33 mL/min/{1.73_m2} Low >60 [facility] Comment on above: Result Comment: Effective [...] By: #### H H, BMPX #### [facility] [address] [place] [address] Drilling Foreman: Luis Solis MD Glucose [Mass/Vol] 272 mg/dL High 70-99 [facility] Comment on above: Performed By: #### H H, BMPX #### [facility] [address] [place] [address] Drilling Foreman: Luis Solis MD Potassium [Moles/Vol] 4.4 mmol/L Normal 3.7-5.3 [facility] Comment on above: Performed By: #### H H, BMPX #### [email or web address] [address] [place] [address] Drilling Foreman: Luis Solis MD Protein [Mass/Vol] 7.3 g/dL Normal 6.4-8.3 [facility] Comment on above: Performed By: #### H H, BMPX #### [email or web address] [address] [place] [address] Drilling Foreman: Luis Solis MD Sodium [Moles/Vol] 139 mmol/L Normal 135-144 [facility] Comment on above: Performed By: #### H H, BMPX #### [facility] [address] [place] [address] Drilling Foreman: Luis Solis MD Urea nitrogen [Mass/Vol] 22 mg/dL Normal 8-23 [facility] Comment on above: Performed By: #### H H, BMPX #### [facility] [address] [place] [address] Drilling Foreman: Luis Solis MD Lactate, Sepsison 09-28-2022 Lactic Acid,Sep Wbld 0.6 mmol/L Normal 0.5-1.9 [facility] Comment on above: Performed By: #### R EJEC, BMPX #### [facility] [address] [place] [address] Drilling Foreman: Luis Solis MD Lactic Acid,Sep Wbld 1.5 mmol/L Normal 0.5-1.9 [facility] Comment on above: Performed By: #### H H, BMPX #### [facility] [address] [place] [address] Drilling Foreman: Luis Solis MD Legionella Ag, Uron 09-28-20 Legionella Ag, Ur Negative Normal NEG [facility] Comment on above: Result Comment: L. p neumophila serogroup 1 antigen not detected. A negative result does not exclude infection with Leginella pnemophila serogroup 1 nor does it rule out other microbial-caused respiratory infections of disease caused by other serogroups of Legionella pneumophila. Performed By: #### H H, BMPX #### [facility] [address] [place] [address] Drilling Foreman: Luis Solis MD PTon 09-28-2022 INR Coag (PPP) [Relative time] 1.1 {INR} Normal [facility] Comment on above: Result Comment: Therapeutic Range: Moderate Anticoagulant Intensity: INR = 2.0-3.0 High Anticoagulant Intensity: INR = 2.5-3.5 Performed By: #### H H, BMPX #### [email or web address] [address] [place] [address] Drilling Foreman: Luis Solis MD PT Coag (PPP) [Time] 11.8 s Normal 9.1-12.3 [facility] Comment on above: Performed By: #### H H, BMPX #### [email or web address] [address] [place] [address] Drilling Foreman: Luis Solis MD [id number] 09-28-2022 SARS-CoV-2 (COVID-19) RNA SIRI+probe Ql (Unsp spec) Not detected Normal NOTDET [facility] Comment on above: Result Comment: Rapid [...] management decisions. Fact sheet for Healthcare Providers: https://www.fda.gov/media/267295/download Fact sheet for Patients: https://www.fda.gov/media/376143/download Methodology: Isothermal Nucleic Acid Amplification Performed By: #### Madeline DALE BMPX #### [facility] [address] [place] [address] Drilling Foreman: Luis Solis MD Sedimentation Rateon 022 Sedimentation Rate 61 mm/Hr High 0-30 [facility] Comment on above: Performed By: #### Madeline DALE, BMPX #### [facility] [address] [place] [address] [phone] Drilling Foreman: Luis Solis MD Strep pneum Ag,CSF/Uron 09-15 Strep pneum Ag Negative Normal [facility] Comment on above: Result Comment: Stre p pneumoniae antigen not detected Performed By: #### Madeline DALE, BMPX #### [facility] [address] [place] [address] [phone] Drilling Foreman: Luis Solis MD Strep pneu Ag Source .URINE Normal [facility] Comment on above: Performed By: #### R CHITO, BMPX #### [facility] [email or web address] [place] [address] Drilling Foreman: Luis Solis MD Troponinon 09-28-2022 Troponin, High Sens 222 ng/L Critically high 0-14 [facility] Comment on above: Result Comment: High Sensitivity Troponin values cannot be compared with other Troponin methodologies. Patients with high levels of Biotin oral intake (i.e >5mg/day) may have falsely decreased Troponin levels. Samples collected within 8 hours of biotin intake may require additional information for diagnosis. Performed By: #### R CHITO BMPX #### [email or web address] [address] [place] [id number] Drilling Foreman: Luis Solis MD Troponin, High Sens 219 ng/L Critically high 014 [facility] Comment on above: Result Comment: High Sensitivity Troponin values cannot be compared with other Troponin methodologies. Patients with high levels of Biotin oral intake (i.e >5mg/day) may have falsely decreased Troponin levels. Samples collected within 8 hours of biotin intake may require additional information for diagnosis. Performed By: #### H H BMPX #### [email or web address] [address] [place] [address] Drilling Foreman: Luis Solis MD Type + Screenon 09-28-2022 Type + Screen Sample Expiration 10/01/2022,2359 Arm Band Number [id number] ABO/Rh(D) O NEGATIVE Antibody Screen NEGATIVE Normal [facility] Comment on above: Performed By: #### H H, BMPX #### [email or web address] [address] [place] [address] Drilling Foreman: Luis Solis MD Urinalysis w/ Microon 2021 Bacteria MANY Abnormal NONE [facility] Comment on above: Performed By: #### H H, BMPX #### [email or web address] [address] [place] [address] Drilling Foreman: Luis Solis MD Bilirubin, SemiQt,Ur Negative Normal NEG [facility] Comment on above: Performed By: #### H H, BMPX #### [address] [address] Drilling Foreman: Luis Solis MD Blood, Urine Negative Normal NEG [facility] Comment on above: Performed By: #### H H, BMPX #### [address] [address] Drilling Foreman: Luis Solis MD Casts 0 TO 2 HYALINE Normal 0-8 [facility] Comment on above: Result Comment: Refe rence range defined for non-centrifuged specimen. Performed By: #### H H, BMPX #### [address] [address] Drilling Foreman: Luis Solis MD Clarity (U) Cloudy Abnormal CLEAR [facility] Comment on above: Performed By: #### H H, BMPX #### [address] [address] Drilling Foreman: Lusi Solis MD Color (U) Yellow Normal YEL [facility] Comment on above: Performed By: #### H H, BMPX #### [address] [address] Drilling Foreman: Luis Solis MD Epithelial cells LM Ql (Urine sed) 5 TO 10 Normal 0-5 [facility] Comment on above: Performed By: #### H H, BMPX #### [address] [address] Drilling Foreman: Luis Solis MD Glucose Ql (U) 2+ Abnormal NEG [facility] Comment on above: Performed By: #### H H, BMPX #### [facility] [address] [place] [address] Drilling Foreman: Luis Solis MD Ketones Ql (U) TRACE Abnormal NEG [facility] Comment on above: Performed By: #### H H, BMPX #### [facility] [address] [place] [address] Drilling Foreman: Luis Solis MD Leukocyte esterase Test strip Ql (U) TRACE Abnormal NEG [facility] Comment on above: Performed By: #### H H, BMPX #### [email or web address] [address] [place] [address] Drilling Foreman: Luis Solis MD Nitrite,Ur Negative Normal NEG [facility] Comment on above: Performed By: #### H H, BMPX #### [facility] [address] [place] [address] Drilling Foreman: Luis Solis MD PH,Ur 5.5 Normal 5.0-8.0 [facility] Comment on above: Performed By: #### H H, BMPX #### [facility] [address] [place] [address] Drilling Foreman: Luis Solis MD Protein Ql (U) TRACE Abnormal NEG [facility] Comment on above: Performed By: #### H H, BMPX #### [facility] [address] [place] [address] Drilling Foreman: Luis Solis MD Spec. Manley,Ur 1.018 Normal 1.005-1.03 0 [facility] Comment on above: Performed By: #### H H, BMPX #### [facility] [address] [place] [address] Drilling Foreman: Luis Solis MD Urine RBC's 0 TO 2 Normal 0-4 [facility] Comment on above: Result Comment: Refe rence range defined for non-centrifuged specimen. Performed By: #### H H, BMPX #### [facility] [address] [place] [address] Drilling Foreman: Luis Solis MD Urine WBC's 10 TO 20 Normal 0-5 [facility] Comment on above: Performed By: #### H H, BMPX #### [facility] [address] [place] [address] Drilling Foreman: Luis Solis MD Urobilinogen,Ur Normal Normal NORM [facility] Comment on above: Performed By: #### H H, BMPX #### [facility] [address] [place] [address] Drilling Foreman: Luis Solis MD XR CHEST PORTABLEon 09-28-20 [...] Garth Herr MD 09/28/22 Final result Normal [facility] CT BRAIN WO CONTRASTon 03-31 CT BRAIN WO CONTRAST [facility] Department of Radiology [address] [place] [id number] Patient Name: CUCA GOODWIN : 1945 Sex: F Age: Race: White Pt. 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 IMPRESSION: No change. Electronically signed: Berry Chavez. Transcribed by: [email or web address], User Resident: Electronically Signed by: BERRY CHAVEZ @ 03/31/2022 03:46 PM Normal [facility] Comment on above: Order Comment: hydro cephalus s/p vp ancillary shunt SENIOR TAX ANALYST SHUNT SERIESon 03-31-2022 SENIOR TAX ANALYST SHUNT SERIES [facility] Department of Radiology [address] [place] [id number] Patient Name: CUCA GOODWIN : 1945 Sex: [...] , Ordering Provider - A NIELS 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 , Exam: SENIOR TAX ANALYST SHUNT SERIES SENIOR TAX ANALYST SHUNT SERIES HISTORY: Shunt evaluation. COMPARISON: 09/17/2020. [...] described. Electronically signed: Lam Chew. Transcribed by: [email or web address], User Resident: Electronically Signed by: LAM CHEW @ 04/03/2022 08:50 AM Normal [facility] Comment on above: Order Comment: , .br E.brEr/o kinking or discontinuity of shunt tubing and do image perpendicularl to valve to check OP , .brr/o kinking or discontinuity of shunt tubing and do image perpendicularl to valve to check OP , , , Ordering Provider - Danielle RAWLS 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 , Lipid Profileon 03-26-2021 Cholesterol [Mass/Vol] 117 mg/dL Normal <200 [facility] Comment on above: Result Comment: Cholesterol Guidelines: <200 Desirable 200-240 Borderline >240 Undesirable Performed By: #### L IPR #### [employer] [facility] [place] [address] Drilling Foreman: Luis Solis MD Cholesterol in HDL [Mass/Vol] 39 mg/dL Low >40 [facility] Comment on above: Result Comment: HDL Guidelines: <40 Undesirable 40-59 Borderline >59 Desirable Performed By: #### L IPR #### [employer] [address] [place] [address] Drilling Foreman: Luis Solis MD Cholesterol in LDL [Mass/Vol] 62 mg/dL Normal 0-130 [facility] Comment on above: Result Comment: LDL Guidelines: <100 Desirable 100-129 Near to/above Desirable 130-159 Borderline >159 Undesirable Direct (measured) LDL and calculated LDL are not interchangeable tests. Performed By: #### L IPR #### [employer] [facility] [place], [place] [id number] Drilling Foreman: Luis Solis MD Cholesterol.total /Cholesterol in HDL [Mass ratio] 3.0 {ratio} Normal <5 [facility] Comment on above: Performed By: #### L IPR #### [employer] [facility] [place] [address] Drilling Foreman: Luis Solis MD Triglyceride [Mass/Vol] 79 mg/dL Normal <150 [facility] Comment on above: Result Comment: Triglyceride Guidelines: <150 Desirable 150-199 Borderline 200-499 High >499 Very high Based on AHA Guidelines for fasting triglyceride, August 2012. Performed By: #### L IPR #### [facility] [address] [place] [address] Drilling Foreman: Luis Solis MD Cholesterol,VLDL NOT REPORTED Normal 12-14 [facility] Comment on above: Performed By: #### L IPR #### [facility] [address] [place] [address] Drilling Foreman: Luis Solis MD Uric Acidon 03-24-2021 Urate [Mass/Vol] 6.8 mg/dL High 2.4-5.7 [facility] Comment on above: Performed By: #### U RI #### [facility] [address] [place] [address] Drilling Foreman: Giovanny Carpenter MD Uric AcidOrdered By: Lakeshia Henriquez on 03-24-2021 Interpretation and review of laboratory results Abnormal [facility] Phone: Urate [Mass/Vol] 6.8 mg/dL High 2.4 - 5.7 mg/dL [facility] [employer] Phone: CBC AUTO DIFFon 03-20-2021 BASO # 0.0 103/ul Normal 0.0-0.1 [facility] Comment on above: Performed By: #### C BC #### [facility] [address] [place], [place] [address] Ghulam Amy Basophils/100 WBC (Bld) 0.4 % Normal 0.2-2.0 [facility] Comment on above: Performed By: #### C BC #### [facility] [address] [place], [place] [address] Ghulam Amy EO # 0.4 103/ul Normal 0.0-0.7 [facility] Comment on above: Performed By: #### C BC #### [facility] [address] [place], [place] [address] Ghulam Amy Eosinophils/100 WBC (Bld) 4.3 % Normal 0.9-7.0 [facility] Comment on above: Performed By: #### C BC #### [facility] [address] [place] [address] Ghulamgabriela Reyes Erythrocyte distribution width (RBC) [Ratio] 15.9 % Critically high 11.0-15.0 [facility] Comment on above: Performed By: #### C BC #### [facility] [address] [place] [address] Ghulam Amy Hematocrit (Bld) [Volume fraction] 28.5 % Critically low 36.0-48.0 [facility] Comment on above: Performed By: #### C BC #### [facility] [address] [place] [address] Ghulam Amy Hemoglobin (Bld) [Mass/Vol] 8.9 g/dL Critically low 12.0-16.0 [facility] Comment on above: Performed By: #### C BC #### [facility] [address] [place] [address] Ghulam Amy IG # 0.04 10e3/ul Critically high 0.00-0.03 [facility] Comment on above: Performed By: #### C BC #### [facility] [address] [place] [address] Ghulma Amy IG % 0.4 % Normal 0.0-0.5 [facility] Comment on above: Performed By: #### C BC #### [facility] [address] [place] [address] Ghulam Amy LYMPH # 2.2 103/ul Normal 1.2-3.8 [facility] Comment on above: Performed By: #### C BC #### [facility] [address] [place] [address] Ghulamgabriela Reyes Lymphocytes/100 WBC (Bld) 21.9 % Normal 20.5-60.0 [facility] Comment on above: Performed By: #### C BC #### [facility] [address] [place], [place] [phone] Ghulamgabriela Reyes MANUAL DIFF REQ NO Normal [facility] Comment on above: Performed By: #### C BC #### [facility] [address] [place], [place] [phone] Ghulamgabriela Reyes MCH (RBC) [Entitic mass] 27.1 pg Normal 26.7-34.0 [facility] Comment on above: Performed By: #### C BC #### [facility] [address] [place], [place] [phone] Ghulam Reyes MCHC (RBC) [Mass/Vol] 31.2 g/dL Normal 29.9-35.2 [facility] Comment on above: Performed By: #### C BC #### [facility] [address] [place], [place] [phone] Ghulamgabriela Reyes MCV (RBC) [Entitic vol] 86.9 fL Normal 81.0-99.0 [facility] Comment on above: Performed By: #### C BC #### [facility] [address] [place] [address] Ghulamgabriela Reyes MONO # 1.0 103/ul Critically high 0.3-0.[address] [facility] Comment on above: Performed By: #### C BC #### [facility] [address] [place] [address] Ghulamgabriela Sotoen Monocytes/100 WBC (Bld) 10.1 % Normal 1.7-12.0 [facility] Comment on above: Performed By: #### C BC #### [facility] [address] [place], [place] [phone] Ghulamgabriela Sotoen NEUT # 6.2 103/ul Normal 1.4-6.5 [facility] Comment on above: Performed By: #### C BC #### [facility] [address] [place], [place] [phone] Ghulam Amy Neutrophils/100 WBC (Bld) 62.9 % Normal 43.0-75.0 [facility] Comment on above: Performed By: #### C BC #### [facility] [address] [place], [place] [phone] Ghulam Amy Platelet mean volume (Bld) [Entitic vol] 10.2 fL Normal 9.5-13.5 [facility] Comment on above: Performed By: #### C BC #### [facility] [address] [place], [place] [phone] Ghulam Amy PLT 289 103/ul Normal 150-450 [facility] Comment on above: Performed By: #### C BC #### [facility] [address] [place] [address] Ghulamgabriela Sotoen RBC 3.28 106/ul Critically low 4.20-5.[address] [facility] Comment on above: Performed By: #### C BC #### [facility] [address] [place], [place] [address] Ghulam Amy WBC 9.9 103/ul Normal 4.0-11.0 [facility] Comment on above: Performed By: #### C BC #### [facility] [address] [place], [place] [address] Ghulam Reyes PROF 14(COMP METB)on 021 Albumin [Mass/Vol] 2.8 g/dL Critically low 3.5-5.0 [facility] Comment on above: Performed By: #### C MP #### [facility] [address] [place], [place] [phone] Ghulamgabriela Reyes Albumin/Globulin [Mass ratio] 0.6 {ratio} Normal [facility] Comment on above: Performed By: #### C MP #### [facility] [address] [place], [place] [phone] Ghulam Amy ALP [Catalytic activity/Vol] 95 U/L Normal 38-126 [facility] Comment on above: Performed By: #### C MP #### [facility] [address] [place], [place] [phone] Ghulam Amy ALT [Catalytic activity/Vol] 16 U/L Normal 9-52 [facility] Comment on above: Performed By: #### C MP #### [facility] [address] [place] [address] Ghulam Amy Anion gap [Moles/Vol] 11.6 mmol/L Normal [facility] Comment on above: Performed By: #### C MP #### [facility] [address] [place], [place] [phone] Ghulam Amy AST [Catalytic activity/Vol] 13 U/L Critically low 14-36 [facility] Comment on above: Performed By: #### C MP #### [facility] [address] [place] [phone] Ghulam Amy Bilirubin [Mass/Vol] 0.4 mg/dL Normal 0.2-1.3 [facility] Comment on above: Performed By: #### C MP #### [facility] [address] [place] [phone] Ghulam Amy Calcium [Mass/Vol] 8.9 mg/dL Normal 8.4-10.2 [facility] Comment on above: Performed By: #### C MP #### [facility] [address] [place] [phone] Ghulam Amy Chloride [Moles/Vol] 103 mmol/L Normal 98-107 [facility] Comment on above: Performed By: #### C MP #### [facility] [address] [place] [address] Ghulam Amy CO2 [Moles/Vol] 27.4 mmol/L Normal 22.0-30.0 [facility] Comment on above: Performed By: #### C MP #### [facility] [address] [place] [phone] Ghulam Amy Creatinine [Mass/Vol] 1.86 mg/dL Critically high 0.52-1.04 [facility] Comment on above: Performed By: #### C MP #### [facility] [address] [place] [phone] Ghulam Amy EGFR-AF EMIRATI 32 mL/min/1.73m2 Critically low >=60 [facility] Comment on above: Performed By: #### C MP #### [facility] [address] [place] [phone] Ghulam Amy EGFR-NON AF EMIRATI 26 mL/min/1.73m2 Critically low >=60 [facility] Comment on above: Performed By: #### C MP #### [facility] [address] [place] [phone] Ghulam Amy Globulin (S) [Mass/Vol] 4.6 g/dL Normal [facility] Comment on above: Performed By: #### C MP #### [facility] [address] [place] [address] Ghulam Amy Glucose [Mass/Vol] 174 mg/dL Critically high 74-106 [facility] Comment on above: Performed By: #### C MP #### [facility] [address] [place] [address] Ghulam Amy Potassium [Moles/Vol] 4.0 mmol/L Normal 3.4-5.0 [facility] Comment on above: Performed By: #### C MP #### [facility] [address] [place] [address] Ghulam Amy Protein [Mass/Vol] 7.4 g/dL Normal 6.1-8.2 [facility] Comment on above: Performed By: #### C MP #### [facility] [address] [place] [address] Ghulam Amy Sodium [Moles/Vol] 138 mmol/L Normal 137-145 [facility] Comment on above: Performed By: #### C MP #### [facility] [address] [place] [address] Ghulam Amy Urea nitrogen [Mass/Vol] 24.0 mg/dL Critically high 7.0-17.0 [facility] Comment on above: Performed By: #### C MP #### [facility] [address] [place] [address] Ghulam Amy Urea nitrogen/Creatini ne [Mass ratio] 12.9 mg/mg Normal [facility] Comment on above: Performed By: #### C MP #### [facility] [address] [place] [address] Ghulam Amy RESPIRATORY PANEL PLUSon Adenovirus Not detected Normal NOT DETECTED [facility] Comment on above: Performed By: #### R SPLUS #### [facility] [address] [place] [address] Ghulam Amy B. Parapertusis Not detected Normal NOT DETECTED [facility] Comment on above: Performed By: #### R SPLUS #### [facility] [address] [place] [address] Ghulam Amy B. Pertussis Not detected Normal NOT DETECTED [facility] Comment on above: Performed By: #### R SPLUS #### [facility] [address] [place] [address] Ghulam Amy Chlamydia Pneumoniae Not detected Normal NOT DETECTED [facility] Comment on above: Performed By: #### R SPLUS #### [facility] [address] [place] [address] Ghulam Amy Coronavirus 229E Not detected Normal NOT DETECTED [facility] Comment on above: Performed By: #### R SPLUS #### [facility] [address] [place] [address] Ghulam Amy Coronavirus HKU1 Not detected Normal NOT DETECTED [facility] Comment on above: Performed By: #### R SPLUS #### [facility] [address] [place] [address] Ghulam Amy Coronavirus NL63 Not detected Normal NOT DETECTED [facility] Comment on above: Performed By: #### R SPLUS #### [facility] [address] [place] [address] Ghulam Amy Coronavirus OC43 Not detected Normal NOT DETECTED [facility] Comment on above: Performed By: #### R SPLUS #### [facility] [address] [place] [address] Ghulam Amy Influenza A H1 2009 Not detected Normal NOT DETECTED [facility] Comment on above: Performed By: #### R SPLUS #### [facility] [address] [place] [address] Ghulam Amy Influenza B Not detected Normal NOT DETECTED [facility] Comment on above: Performed By: #### R SPLUS #### [facility] [address] [place] [address] Ghulam Amy Metapneumovirus Not detected Normal NOT DETECTED [facility] Comment on above: Performed By: #### R SPLUS #### [facility] [address] [place] [address] Ghulam Amy Mycoplas. Pneumoniae Not detected Normal NOT DETECTED [facility] Comment on above: Performed By: #### R SPLUS #### [facility] [address] [place], [place] [address] Ghulam Amy Parainfluenza 1 Not detected Normal NOT DETECTED [facility] Comment on above: Performed By: #### R SPLUS #### [facility] [address] [place] [address] Ghulam Amy Parainfluenza 2 Not detected Normal NOT DETECTED [facility] Comment on above: Performed By: #### R SPLUS #### [facility] [address] [place] [address] Ghulam Amy Parainfluenza 3 Not detected Normal NOT DETECTED [facility] Comment on above: Performed By: #### R SPLUS #### [facility] [address] [place] [address] Ghulam Amy Parainfluenza 4 Not detected Normal NOT DETECTED [facility] Comment on above: Performed By: #### R SPLUS #### [facility] [address] [place] [address] Ghulam Amy Rhino/Enterovirus Not detected Normal NOT DETECTED [facility] Comment on above: Performed By: #### R SPLUS #### [facility] [address] [place] [address] Ghulam Amy RP2 Header 1 RESPIRATORY PANEL: VIRUSES Normal [facility] [facility] Comment on above: Performed By: #### R SPLUS #### [facility] [address] [place] [address] Ghulam Amy RP2 Header 2 RESPIRATORY PANEL: BACTERIA Normal [facility] Comment on above: Performed By: #### R SPLUS #### [facility] [address] [place] [address] Ghulam Amy RP2 Header 4 EUA SEE BELOW Normal The [facility] Comment on above: Result Comment: This test is not yet approved or cleared by the [place] FDA. When there are no FDA-approved or cleared tests available, and other criteria are met, FDA can make tests available under an emergency access mechanism called an Emergency Use Authorization (EUA). The EUA for this test is supported by the [place] of Health and Human Service?s (HHS?s) declaration [...] used). Performed By: #### R SPLUS #### [facility] [address] [place] [address] Ghulam Reyes RSV Not detected Normal NOT DETECTED [facility] Comment on above: Performed By: #### R SPLUS #### [facility] [address] [place] [address] Ghulam Reyes SARS-CoV-2 (COVID-19) RNA SIRI+probe Ql (Unsp spec) Not detected Normal NOT DETECTED [facility] Comment on above: Performed By: #### R SPLUS #### [facility] [address] [place] [address] Ghulam Reyes URIC ACID SERUMon 03-20-2021 Urate [Mass/Vol] 7.4 mg/dL Critically high 2.5-6.2 [facility] Comment on above: Performed By: #### U GIRISH #### [facility] [address] [place] [address] Ghulam Amy CBC AUTO DIFFon 03-19-2021 BASO # 0.0 103/ul Normal 0.0-0.1 [facility] Comment on above: Performed By: #### C BC #### [facility] [address] [place] [address] Ghulam Reyes Basophils/100 WBC (Bld) 0.3 % Normal 0.2-2.0 [facility] Comment on above: Performed By: #### C BC #### [facility] [address] [place] [address] Ghulam Amy EO # 0.1 103/ul Normal 0.0-0.7 The [facility] Comment on above: Performed By: #### C BC #### [facility] [address] [place] [address] Ghulam Amy Eosinophils/100 WBC (Bld) 0.9 % Normal 0.9-7.0 [facility] Comment on above: Performed By: #### C BC #### [facility] [address] [id number] Ghulam Amy Erythrocyte distribution width (RBC) [Ratio] 15.5 % Critically high 11.0-15.0 [facility] Comment on above: Performed By: #### C BC #### [facility] [address] [id number] Ghulam Amy Hematocrit (Bld) [Volume fraction] 28.1 % Critically low 36.0-48.0 [facility] Comment on above: Performed By: #### C BC #### [facility] [address] [place], [place] [id number] Ghulam Amy Hemoglobin (Bld) [Mass/Vol] 8.9 g/dL Critically low 12.0-16.0 [facility] Comment on above: Performed By: #### C BC #### [facility] [address] [place] [address] Ghulam Amy IG # 0.05 10e3/ul Critically high 0.00-0.03 [facility] Comment on above: Performed By: #### C BC #### [facility] [address] [place] [address] Ghulam Amy IG % 0.5 % Normal 0.0-0.5 [facility] Comment on above: Performed By: #### C BC #### [facility] [address] [place] [address] Ghulam Amy LYMPH # 1.9 103/ul Normal 1.2-3.8 [facility] Comment on above: Performed By: #### C BC #### [facility] [address] [place], [place] [id number] Ghulam Amy Lymphocytes/100 WBC (Bld) 17.2 % Critically low 20.5-60.0 [facility] Comment on above: Performed By: #### C BC #### [facility] [address] [place], [place] [phone] Ghulam Reyes MANUAL DIFF REQ NO Normal [facility] Comment on above: Performed By: #### C BC #### [facility] [address] [place], [place] [address] Ghulam Reyes MCH (RBC) [Entitic mass] 27.1 pg Normal 26.7-34.0 [facility] Comment on above: Performed By: #### C BC #### [facility] [address] [id number] Ghulam Reyes MCHC (RBC) [Mass/Vol] 31.7 g/dL Normal 29.9-35.2 [facility] Comment on above: Performed By: #### C BC #### [facility] [address] [id number] Ghulam Reyes MCV (RBC) [Entitic vol] 85.4 fL Normal 81.0-99.0 [facility] Comment on above: Performed By: #### C BC #### [facility] [address] [place], [place] [phone] Ghulam Reyes MONO # 1.0 103/ul Critically high 0.3-0.[address] [facility] Comment on above: Performed By: #### C BC #### [facility] [address] [place], [place] [phone] Ghulam Reyes Monocytes/100 WBC (Bld) 9.5 % Normal 1.7-12.0 The [facility] Comment on above: Performed By: #### C BC #### [facility] [address] [place], [place] [phone] Ghulam Reyes NEUT # 7.7 103/ul Critically high 1.4-6.[address] [facility] Comment on above: Performed By: #### C BC #### [facility] [address] [place], [place] [phone] Ghulam Reyes Neutrophils/100 WBC (Bld) 71.6 % Normal 43.0-75.0 [facility] Comment on above: Performed By: #### C BC #### [facility] [address] [place], [place] [phone] Ghulamgabriela Reyes Platelet mean volume (Bld) [Entitic vol] 10.1 fL Normal 9.5-13.5 [facility] Comment on above: Performed By: #### C BC #### [facility] [address] [id number] Ghulam Reyes PLT 285 103/ul Normal 150-450 [facility] Comment on above: Performed By: #### C BC #### [facility] [address] [id number] Ghulam Reyes RBC 3.29 106/ul Critically low 4.20-5.[address] [facility] Comment on above: Performed By: #### C BC #### [facility] [address] [address] Ghulam Reyes WBC 10.7 103/ul Normal 4.0-11.0 [facility] Comment on above: Performed By: #### C BC #### [facility] [address] [address] Ghulam Reyes MAGNESIUMon 03-19-2021 Magnesium [Mass/Vol] 1.9 mg/dL Normal 1.6-2.3 [facility] Comment on above: Performed By: #### M G ####[facility] [address] [id number] Reyes POINT OF CARE GLUCOSEon Glucose [Mass/Vol] 68 mg/dL Critically low 74-106 The [facility] Comment on above: Performed By: #### P OCGLUC #### [facility] [address] [address] Ghulam Reyes Glucose [Mass/Vol] 91 mg/dL Normal 74-106 [facility] Comment on above: Performed By: #### P OCGLUC #### [facility] [address] [address] Ghulam Reyes Glucose [Mass/Vol] 136 mg/dL Critically high 74-106 [facility] Comment on above: Performed By: #### P OCGLUC #### [facility] [address] [address] Ghulam Reyes PROF 14(COMP METB)on 021 Albumin [Mass/Vol] 2.7 g/dL Critically low 3.5-5.0 [facility] Comment on above: Performed By: #### C MP #### [facility] [address] [place], [place] [phone] Ghulam Amy Albumin/Globulin [Mass ratio] 0.6 {ratio} Normal [facility] Comment on above: Performed By: #### C MP #### [facility] [address] [place], [place] [phone] Ghulam Amy ALP [Catalytic activity/Vol] 99 U/L Normal 38-126 [facility] Comment on above: Performed By: #### C MP #### [facility] [address] [place] [address] Ghulam Amy ALT [Catalytic activity/Vol] 14 U/L Normal 9-52 [facility] Comment on above: Performed By: #### C MP #### [facility] [address] [place], [place] [phone] Ghulam Amy Anion gap [Moles/Vol] 10.5 mmol/L Normal [facility] Comment on above: Performed By: #### C MP #### [facility] [address] [place] [address] Ghulam Amy AST [Catalytic activity/Vol] 13 U/L Critically low 14-36 [facility] Comment on above: Performed By: #### C MP #### [facility] [address] [place] [address] Ghulam Amy Bilirubin [Mass/Vol] 0.5 mg/dL Normal 0.2-1.3 [facility] Comment on above: Performed By: #### C MP #### [facility] [address] [place] [address] Ghulam Amy Calcium [Mass/Vol] 9.1 mg/dL Normal 8.4-10.2 [facility] Comment on above: Performed By: #### C MP #### [facility] [address] [place], [place] [phone] Ghulam Amy Chloride [Moles/Vol] 104 mmol/L Normal 98-107 [facility] Comment on above: Performed By: #### C MP #### [facility] [address] [place], [place] [phone] Ghulam Amy CO2 [Moles/Vol] 27.2 mmol/L Normal 22.0-30.0 [facility] Comment on above: Performed By: #### C MP #### [facility] [address] [id number] Ghulam Amy Creatinine [Mass/Vol] 1.57 mg/dL Critically high 0.52-1.04 [facility] Comment on above: Performed By: #### C MP #### [facility] [address] [phone] Ghulam Amy EGFR-AF EMIRATI 39 mL/min/1.73m2 Critically low >=60 [facility] Comment on above: Performed By: #### C MP #### [facility] [address] [address] Ghulam Amy EGFR-NON AF EMIRATI 32 mL/min/1.73m2 Critically low >=60 [facility] Comment on above: Performed By: #### C MP #### [facility] [address] [place] [address] Ghulam Amy Globulin (S) [Mass/Vol] 4.6 g/dL Normal [facility] Comment on above: Performed By: #### C MP #### [facility] [address] [id number] Ghulam Amy Glucose [Mass/Vol] 209 mg/dL Critically high 74-106 [facility] Comment on above: Performed By: #### C MP #### [facility] [address] [address] Ghulam Amy Potassium [Moles/Vol] 3.7 mmol/L Normal 3.4-5.0 [facility] Comment on above: Performed By: #### C MP #### [facility] [address] [phone] Ghulam Amy Protein [Mass/Vol] 7.3 g/dL Normal 6.1-8.2 [facility] Comment on above: Performed By: #### C MP #### [facility] [address] [phone] Ghulam Amy Sodium [Moles/Vol] 138 mmol/L Normal 137-145 [facility] Comment on above: Performed By: #### C MP #### [facility] [address] [place], [place] [address] Ghulam Amy Urea nitrogen [Mass/Vol] 28.0 mg/dL Critically high 7.0-17.0 [facility] Comment on above: Performed By: #### C MP #### [facility] [address] [place], [place] [address] Ghulam Amy Urea nitrogen/Creatini ne [Mass ratio] 17.8 mg/mg Normal [facility] Comment on above: Performed By: #### C MP #### [facility] [address] [place], [place] [address] Ghulam Amy Vital Signs Date Time Vital Sign Value Performing Clinician Facility 06-06-2025 13:25-0400 Body height 165.1 cm Joie FRIEND Work Phone: [facility] 06-06-2025 13:25-0400 Body mass index (BMI) [Ratio] 31.45 kg/m2 Joie FRIEND Work Phone: [facility] 06-06-2025 13:25-0400 Body weight 85.73 kg Joie FRIEND Work Phone: [facility] 06-05-2025 13:03-0400 Body height 165.1 cm Vj Gray 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 Work Phone: [facility] 06-05-2025 13:03-0400 Body mass index (BMI) [Ratio] 30.65 kg/m2 Vj Gray 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 Work Phone: [facility] 06-05-2025 13:03-0400 Body temperature 97.7 [degF] Vj Gray 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 Work Phone: [facility] 06-05-2025 13:03-0400 Body weight 83.55 kg Vj Gray 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 Work Phone: [facility] 06-05-2025 13:03-0400 Diastolic blood pressure 80 mm[Hg] Vj Gray 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 Work Phone: [facility] 06-05-2025 13:03-0400 Heart rate 67 /min Vj Kleinzer 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 Work Phone: [facility] 06-05-2025 13:03-0400 Respiratory rate 18 /min Vj Perezotzer 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 Work Phone: [facility] 06-05-2025 13:03-0400 SaO2% (BldA) [Mass fraction] 95 % Vj Kleinzer 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 Work Phone: [facility] 06-05-2025 13:03-0400 Systolic blood pressure 120 mm[Hg] Vj Kleinzer 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 Work Phone: [facility] 05-15-2025 15:20-0400 Heart rate 98 /min Felix Hallman MD Work Phone: [facility] 05-15-2025 15:20-0400 SaO2% (BldA) [Mass fraction] 94 % Felix Hallman MD Work Phone: [facility] 05-15-2025 11:05-0400 Body temperature 98.1 [degF] Felix Hallman MD Work Phone: [facility] 05-15-2025 11:05-0400 Diastolic blood pressure 72 mm[Hg] Felix Hallman MD Work Phone: [facility] 05-15-2025 11:05-0400 Respiratory rate 16 /min Felix Hallman MD Work Phone: [facility] 05-15-2025 11:05-0400 Systolic blood pressure 121 mm[Hg] Felix Hallman MD Work Phone: [facility] 05-15-2025 03:15-0400 Body mass index (BMI) [Ratio] 30.93 kg/m2 Felix Hallman MD Work Phone: [facility] 05-15-2025 03:15-0400 Body weight 84.3 kg Felix Hallman MD Work Phone: [facility] 05-13-2025 16:20-0400 Body height 165.1 cm Felix Hallman MD Work Phone: [facility] 05-13-2025 11:23-0400 SaO2% (BldA) [Mass fraction] 92 % Felix Hallman MD Work Phone: [facility] 05-13-2025 11:23-0400 SaO2% (BldA) [Mass fraction] 67 % Felix Hallman MD Work Phone: [facility] 05-13-2025 11:21-0400 SaO2% (BldA) [Mass fraction] 67 % [facility] Comment on above: Performed By: #### ABG ####[facility] ([address] [address] 04-04-2025 09:01-0400 Body height 165.1 cm Pam RICHEY Work Phone: [facility] 04-04-2025 09:01-0400 Body mass index (BMI) [Ratio] 30.79 kg/m2 Pam RICHEY Work Phone: [facility] 04-04-2025 09:01-0400 Body temperature 97.7 [degF] Pam RICHEY Work Phone: [facility] 04-04-2025 09:01-0400 Body weight 83.92 kg Pam RICHEY Work Phone: [facility] 04-04-2025 09:01-0400 Diastolic blood pressure 68 mm[Hg] Pam RICHEY Work Phone: [facility] 04-04-2025 09:01-0400 Heart rate 88 /min Pam RICHEY Work Phone: [facility] 04-04-2025 09:01-0400 Respiratory rate 20 /min Pam RICHEY Work Phone: [facility] 04-04-2025 09:01-0400 SaO2% (BldA) [Mass fraction] 93 % Pam RICHEY Work Phone: [facility] 04-04-2025 09:01-0400 Systolic blood pressure 108 mm[Hg] Pam RICHEY Work Phone: [facility] 04-03-2025 08:04-0400 Body height 165.1 cm Pfo 4 [facility] 04-03-2025 08:04-0400 Body mass index (BMI) [Ratio] 30.89 kg/m2 Pfo 4 [facility] 04-03-2025 08:04-0400 Body temperature 98.01 [degF] Pfo [address] [facility] 04-03-2025 08:04-0400 Body weight 84.19 kg Pfo 4 [facility] 04-03-2025 08:04-0400 Diastolic blood pressure 69 mm[Hg] Pfo 4 [facility] 04-03-2025 08:04-0400 Heart rate 81 /min Pfo 4 [facility] 04-03-2025 08:04-0400 Respiratory rate 16 /min Pfo [address] [facility] 04-03-2025 08:04-0400 SaO2% (BldA) [Mass fraction] 98 % Pfo 4 [facility] 04-03-2025 08:04-0400 Systolic blood pressure 149 mm[Hg] Pfo 4 [facility] 03-30-2025 08:01-0400 Body height 165.1 cm Pfo 1 [facility] 03-30-2025 08:01-0400 Body mass index (BMI) [Ratio] 31.15 kg/m2 Pfo 1 [facility] 03-30-2025 08:01-0400 Body temperature 98.01 [degF] Pfo [address] [facility] 03-30-2025 08:01-0400 Body weight 84.91 kg Pfo 1 [facility] 03-30-2025 08:01-0400 Diastolic blood pressure 46 mm[Hg] Pfo 1 [facility] 03-30-2025 08:01-0400 Heart rate 79 /min Pfo 1 [facility] 03-30-2025 08:01-0400 Respiratory rate 15 /min Pfo [address] [facility] 03-30-2025 08:01-0400 SaO2% (BldA) [Mass fraction] 94 % Pfo 1 [facility] 03-30-2025 08:01-0400 Systolic blood pressure 132 mm[Hg] Pfo 1 [facility] 03-28-2025 08:07-0400 Body height 165.1 cm Pfo 1 [facility] 03-28-2025 08:07-0400 Body mass index (BMI) [Ratio] 31.32 kg/m2 Pfo 1 [facility] 03-28-2025 08:07-0400 Body temperature 97.9 [degF] Pfo [address] [facility] 03-28-2025 08:07-0400 Body weight 85.37 kg Pfo 1 [facility] 03-28-2025 08:07-0400 Diastolic blood pressure 55 mm[Hg] Pfo 1 [facility] 03-28-2025 08:07-0400 Heart rate 99 /min Pfo 1 [facility] 03-28-2025 08:07-0400 Respiratory rate 22 /min Pfo [address] [facility] 03-28-2025 08:07-0400 SaO2% (BldA) [Mass fraction] 93 % Pfo 1 [facility] 03-28-2025 08:07-0400 Systolic blood pressure 95 mm[Hg] Pfo 1 [facility] 03-26-2025 09:08-0400 Body height 165.1 cm Pfo 4 [facility] 03-26-2025 09:08-0400 Body mass index (BMI) [Ratio] 29.95 kg/m2 Pfo 4 [facility] 03-26-2025 09:08-0400 Body temperature 98.6 [degF] Pfo [address] [facility] 03-26-2025 09:08-0400 Body weight 81.65 kg Pfo 4 [facility] 03-26-2025 09:08-0400 Diastolic blood pressure 73 mm[Hg] Pfo 4 [facility] 03-26-2025 09:08-0400 Heart rate 77 /min Pfo 4 [facility] 03-26-2025 09:08-0400 Respiratory rate 18 /min Pfo [address] [facility] 03-26-2025 09:08-0400 SaO2% (BldA) [Mass fraction] 98 % Pfo 4 [facility] 03-26-2025 09:08-0400 Systolic blood pressure 132 mm[Hg] Pfo 4 [facility] 03-22-2025 08:15-0400 Body height 165.1 cm Pfo 4 [facility] 03-22-2025 08:15-0400 Body mass index (BMI) [Ratio] 32.25 kg/m2 Pfo 4 [facility] 03-22-2025 08:15-0400 Body temperature 98.1 [degF] Pfo [address] [facility] 03-22-2025 08:15-0400 Body weight 87.91 kg Pfo 4 [facility] 03-22-2025 08:15-0400 Diastolic blood pressure 57 mm[Hg] Pfo 4 [facility] 03-22-2025 08:15-0400 Heart rate 77 /min Pfo 4 [facility] 03-22-2025 08:15-0400 Respiratory rate 16 /min Pfo [address] [facility] 03-22-2025 08:15-0400 SaO2% (BldA) [Mass fraction] 94 % Pfo 4 [facility] 03-22-2025 08:15-0400 Systolic blood pressure 135 mm[Hg] Pfo 4 [facility] 03-20-2025 08:36-0400 Body height 165.1 cm Pfo 4 [facility] 03-20-2025 08:36-0400 Body mass index (BMI) [Ratio] 31.98 kg/m2 Pfo 4 [facility] 03-20-2025 08:36-0400 Body temperature 97.3 [degF] Pfo [address] [facility] 03-20-2025 08:36-0400 Body weight 87.18 kg Pfo 4 [facility] 03-20-2025 08:36-0400 Diastolic blood pressure 58 mm[Hg] Pfo 4 [facility] 03-20-2025 08:36-0400 Heart rate 85 /min Pfo 4 [facility] 03-20-2025 08:36-0400 Respiratory rate 16 /min Pfo [address] [facility] 03-20-2025 08:36-0400 SaO2% (BldA) [Mass fraction] 99 % Pfo 4 [facility] 03-20-2025 08:36-0400 Systolic blood pressure 129 mm[Hg] Pfo 4 [facility] 03-14-2025 08:50-0400 Body height 165.1 cm Pfo 4 [facility] 03-14-2025 08:50-0400 Body mass index (BMI) [Ratio] 31.92 kg/m2 Pfo 4 [facility] 03-14-2025 08:50-0400 Body temperature 98.1 [degF] Pfo [address] [facility] 03-14-2025 08:50-0400 Body weight 87 kg Pfo 4 [facility] 03-14-2025 08:50-0400 Diastolic blood pressure 60 mm[Hg] Pfo 4 [facility] 03-14-2025 08:50-0400 Heart rate 82 /min Pfo 4 [facility] 03-14-2025 08:50-0400 Respiratory rate 22 /min Pfo [address] [facility] 03-14-2025 08:50-0400 SaO2% (BldA) [Mass fraction] 97 % Pfo 4 [facility] 03-14-2025 08:50-0400 Systolic blood pressure 159 mm[Hg] Pfo 4 [facility] 03-12-2025 08:07-0400 Body temperature 98.49 [degF] Pfo 4 [facility] 03-12-2025 08:07-0400 Diastolic blood pressure 55 mm[Hg] Pfo 4 [facility] 03-12-2025 08:07-0400 Heart rate 92 /min Pfo 4 [facility] 03-12-2025 08:07-0400 Respiratory rate 22 /min Pfo 4 [facility] 03-12-2025 08:07-0400 SaO2% (BldA) [Mass fraction] 96 % Pfo 4 [facility] 03-12-2025 08:07-0400 Systolic blood pressure 143 mm[Hg] Pfo 4 [facility] 01-25-2025 14:15-0400 Body height 165.1 cm Casimiro Muñoz MD Work Phone: [facility] 01-25-2025 14:15-0400 Body mass index (BMI) [Ratio] 31.78 kg/m2 Casimiro Muñoz MD Work Phone: [facility] 01-25-2025 14:15-0400 Body temperature 98.1 [degF] Casimiro Muñoz MD Work Phone: [facility] 01-25-2025 14:15-0400 Body weight 86.64 kg Casimiro Muñoz MD Work Phone: [facility] 01-25-2025 14:15-0400 Diastolic blood pressure 60 mm[Hg] Casimiro Muñoz MD Work Phone: [facility] 01-25-2025 14:15-0400 Heart rate 86 /min Casimiro Muñoz MD Work Phone: [facility] 01-25-2025 14:15-0400 Respiratory rate 18 /min Casimiro Muñoz MD Work Phone: [facility] 01-25-2025 14:15-0400 SaO2% (BldA) [Mass fraction] 97 % Casimiro Muñoz MD Work Phone: [facility] 01-25-2025 14:15-0400 Systolic blood pressure 112 mm[Hg] Casimiro Muñoz MD Work Phone: [facility] 01-22-2025 13:53-0400 Body height 165.1 cm Pam 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 Work Phone: [facility] 01-22-2025 13:53-0400 Body mass index (BMI) [Ratio] 31.88 kg/m2 Pam 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 Work Phone: [facility] 01-22-2025 13:53-0400 Body temperature 98.2 [degF] Pam 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 Work Phone: [facility] [facility] 01-22-2025 13:53-0400 Body weight 86.91 kg Pam 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 Work Phone: [facility] 01-22-2025 13:53-0400 Diastolic blood pressure 70 mm[Hg] Pam 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 Work Phone: [facility] 01-22-2025 13:53-0400 Heart rate 91 /min Pam 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 Work Phone: [facility] 01-22-2025 13:53-0400 Respiratory rate 18 /min Pam 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 Work Phone: [facility] 01-22-2025 13:53-0400 SaO2% (BldA) [Mass fraction] 92 % Pam 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 Work Phone: [facility] 01-22-2025 13:53-0400 Systolic blood pressure 110 mm[Hg] Pam 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 Work Phone: [facility] 01-18-2025 13:36-0500 Diastolic blood pressure 57 mm[Hg] Kendall Villar MD [facility] 01-18-2025 13:36-0500 Systolic blood pressure 90 mm[Hg] Kendall Villar MD [facility] 11-28-2024 14:42-0500 Body height 165.1 cm Pambrannon Mcneilillo 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 Work Phone: [facility] 11-28-2024 14:42-0500 Body mass index (BMI) [Ratio] 32.88 kg/m2 Pam 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 Work Phone: [facility] 11-28-2024 14:42-0500 Body temperature 98.4 [degF] Pam 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 Work Phone: [facility] 11-28-2024 14:42-0500 Body weight 89.63 kg Pam 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 Work Phone: [facility] 11-28-2024 14:42-0500 Diastolic blood pressure 58 mm[Hg] Pam 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 Work Phone: [facility] 11-28-2024 14:42-0500 Heart rate 79 /min Pam 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 Work Phone: [facility] 11-28-2024 14:42-0500 Respiratory rate 20 /min Pam 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 Work Phone: [facility] 11-28-2024 14:42-0500 SaO2% (BldA) [Mass fraction] 96 % Pam 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 Work Phone: [facility] 11-28-2024 14:42-0500 Systolic blood pressure 140 mm[Hg] Pam 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 Work Phone: [facility] 11-24-2024 13:54-0500 Body height 165.1 cm Radha Troy MD Work Phone: [facility] 11-24-2024 13:54-0500 Body mass index (BMI) [Ratio] 32.45 kg/m2 Radha Troy MD Work Phone: [email or web address] 11-24-2024 13:54-0500 Body weight 88.45 kg Radha Troy MD [facility] Phone[facility] 11-24-2024 13:54-0500 Diastolic blood pressure 70 mm[Hg] Radha Troy MD Work Phone: [facility] [employer] 11-24-2024 13:54-0500 Heart rate 51 /min Radha Troy MD Work Phone: [facility] [employer] 11-24-2024 13:54-0500 SaO2% (BldA) [Mass fraction] 95 % Radha Troy MD Work Phone: [facility] [employer] 11-24-2024 13:54-0500 Systolic blood pressure 130 mm[Hg] Radha Troy MD Work Phone: [facility] 08-28-2024 08:15-0400 Body height 165.1 cm Pam 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 Work Phone: [facility] 08-28-2024 08:15-0400 Body mass index (BMI) [Ratio] 34.35 kg/m2 Pam 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 Work Phone: [facility] [employer] 08-28-2024 08:15-0400 Body temperature 97.5 [degF] Pam 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 Work Phone: [facility] 08-28-2024 08:15-0400 Body weight 93.62 kg Pam 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 Work Phone: [email or web address] 08-28-2024 08:15-0400 Diastolic blood pressure 60 mm[Hg] Pam 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 Work Phone: [facility] 08-28-2024 08:15-0400 Heart rate 74 /min Pam 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 Work Phone: [facility] 08-28-2024 08:15-0400 Respiratory rate 18 /min Pam Ley APRN[employer]HIGH 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 Work Phone: [facility] 08-28-2024 08:15-0400 SaO2% (BldA) [Mass fraction] 90 % Pam Ley 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 Work Phone: [facility] 08-28-2024 08:15-0400 Systolic blood pressure 120 mm[Hg] Pam Ley 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 Work Phone: [facility] 06-21-2024 14:48-0400 Body height 165.1 cm Pam Ley 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 Work Phone: [facility] 06-21-2024 14:48-0400 Body mass index (BMI) [Ratio] 33.51 kg/m2 Pam Ley 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 Work Phone: [facility] 06-21-2024 14:48-0400 Body temperature 97.7 [degF] Pam Ley 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 Work Phone: [facility] 06-21-2024 14:48-0400 Body weight 91.35 kg Pam Ley 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 Work Phone: [facility] 06-21-2024 14:48-0400 Diastolic blood pressure 70 mm[Hg] Pam Ley 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 Work Phone: [facility] 06-21-2024 14:48-0400 Heart rate 66 /min Pam Ley 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 Work Phone: [facility] 06-21-2024 14:48-0400 SaO2% (BldA) [Mass fraction] 97 % Pam Ley 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 Work Phone: [facility] 06-21-2024 14:48-0400 Systolic blood pressure 110 mm[Hg] Pam Ley APRN-BARTOLO Work Phone: [facility] 05-03-2024 14:32-0400 Body height 165.1 cm Pam Ley APRN-BARTOLO Work Phone: [facility] 05-03-2024 14:32-0400 Body mass index (BMI) [Ratio] 34.53 kg/m2 Pam Ley APRN-BARTOLO Work Phone: [facility] 05-03-2024 14:32-0400 Body temperature 99 [degF] Pam Ley APRN-BARTOLO Work Phone: [facility] 05-03-2024 14:32-0400 Body weight 94.12 kg Pam Ley APRN-BARTOLO Work Phone: [facility] 05-03-2024 14:32-0400 Diastolic blood pressure 70 mm[Hg] Pam Ley APRN-BARTOLO Work Phone: [facility] 05-03-2024 14:32-0400 Heart rate 71 /min Pam Ley APRN-BARTOLO Work Phone: [facility] 05-03-2024 14:32-0400 Respiratory rate 18 /min Pam Ley APRN-BARTOLO Work Phone: [facility] 05-03-2024 14:32-0400 SaO2% (BldA) [Mass fraction] 94 % Pam Ley APRN-BARTOLO Work Phone: [facility] 05-03-2024 14:32-0400 Systolic blood pressure 130 mm[Hg] Pam Ley APRN-BARTOLO Work Phone: [facility] 03-09-2024 15:13-0400 Body height 165.1 cm Casimiro Muñoz MD Work Phone: [facility] 03-09-2024 15:13-0400 Body mass index (BMI) [Ratio] 33.08 kg/m2 Casimiro Muñoz MD Work Phone: [email or web address] 03-09-2024 15:13-0400 Body temperature 97.59 [degF] Casimiro Muñoz MD Work Phone: [facility] 03-09-2024 15:13-0400 Body weight 90.17 kg Casimiro Muñoz MD Work Phone: [facility] [employer] 03-09-2024 15:13-0400 Diastolic blood pressure 60 mm[Hg] Casimiro Muñoz MD Work Phone: [facility] 03-09-2024 15:13-0400 Heart rate 104 /min Casimiro Muñoz MD Work Phone: [facility] 03-09-2024 15:13-0400 Respiratory rate 24 /min Casimiro Muñoz MD Work Phone: [facility] [employer] 03-09-2024 15:13-0400 SaO2% (BldA) [Mass fraction] 97 % Casimiro Muñoz MD Work Phone: [facility] 03-09-2024 15:13-0400 Systolic blood pressure 130 mm[Hg] Casimiro Muñoz MD Work Phone: [facility] 02-09-2024 13:00-0400 Body height 165.1 cm Pam 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 Work Phone: [facility] 02-09-2024 13:00-0400 Body mass index (BMI) [Ratio] 33.35 kg/m2 Pam 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 Work Phone: [email or web address] 02-09-2024 13:00-0400 Body temperature 98.2 [degF] Pam Ley APR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 Work Phone: [facility] 02-09-2024 13:00-0400 Body weight 90.9 kg Pam 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 Work Phone: [facility] 02-09-2024 13:00-0400 Diastolic blood pressure 72 mm[Hg] Pam Ley 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 Work Phone: [facility] 02-09-2024 13:00-0400 Heart rate 79 /min Pam Ley 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 Work Phone: [facility] 02-09-2024 13:00-0400 Respiratory rate 20 /min Pam Ley 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 Work Phone: [facility] 02-09-2024 13:00-0400 SaO2% (BldA) [Mass fraction] 97 % Pam Ley 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 Work Phone: [facility] 02-09-2024 13:00-0400 Systolic blood pressure 134 mm[Hg] Pam Ley 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 Work Phone: [facility] 12-15-2023 14:51-0500 Body height 165.1 cm Pam Ley 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 Work Phone: [facility] 12-15-2023 14:51-0500 Body mass index (BMI) [Ratio] 31.02 kg/m2 Pam Ley 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 Work Phone: [facility] 12-15-2023 14:51-0500 Body temperature 98.29 [degF] Pam Ley 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 Work Phone: [facility] 12-15-2023 14:51-0500 Body weight 84.54 kg Pam Ley 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 Work Phone: [facility] 12-15-2023 14:51-0500 Diastolic blood pressure 60 mm[Hg] Pam Ley 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 Work Phone: [facility] 12-15-2023 14:51-0500 Heart rate 89 /min Pam Ley 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 Work Phone: [facility] 12-15-2023 14:51-0500 SaO2% (BldA) [Mass fraction] 94 % Pam 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 Work Phone: [facility] 12-15-2023 14:51-0500 Systolic blood pressure 100 mm[Hg] Pam Ley 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 Work Phone: [facility] 11-25-2023 13:56-0500 Body height 165.1 cm Casimiro Muñoz MD Work Phone: [facility] 11-25-2023 13:56-0500 Body mass index (BMI) [Ratio] 31.45 kg/m2 Casimiro Muñoz MD Work Phone: [facility] 11-25-2023 13:56-0500 Body temperature 99 [degF] Casimiro Muñoz MD Work Phone: [facility] 11-25-2023 13:56-0500 Body weight 85.73 kg Casimiro Muñoz MD Work Phone: [facility] 11-25-2023 13:56-0500 Diastolic blood pressure 57 mm[Hg] Casimiro Muñoz MD Work Phone: [facility] 11-25-2023 13:56-0500 Heart rate 65 /min Casimiro Muñoz MD Work Phone: [facility] 11-25-2023 13:56-0500 Respiratory rate 16 /min Casimiro Muñoz MD Work Phone: [facility] 11-25-2023 13:56-0500 SaO2% (BldA) [Mass fraction] 91 % Casimiro Muñoz MD Work Phone: [facility] 11-25-2023 13:56-0500 Systolic blood pressure 141 mm[Hg] Casimiro Muñoz MD Work Phone: [facility] 01-13-2023 07:13-0500 Body temperature 98.01 [degF] Georges Doe MD Work Phone: [facility] 01-13-2023 07:13-0500 Diastolic blood pressure 54 mm[Hg] Georges Doe MD Work Phone: [employer] 01-13-2023 07:13-0500 Heart rate 57 /min Georges Doe MD Work Phone: [facility] [employer] 01-13-2023 07:13-0500 Respiratory rate 18 /min Georges Doe MD Work Phone: [facility] [employer] 01-13-2023 07:13-0500 SaO2% (BldA) [Mass fraction] 98 % Georges Doe MD Work Phone: [employer] 01-13-2023 07:13-0500 Systolic blood pressure 141 mm[Hg] Georges Doe MD Work Phone: [employer] 12-11-2022 07:58-0500 Body temperature 98.8 [degF] Georges Doe MD Work Phone: [employer] 12-11-2022 07:58-0500 Diastolic blood pressure 56 mm[Hg] Georges Doe MD Work Phone: [employer] 12-11-2022 07:58-0500 Heart rate 85 /min Georges Doe MD Work Phone: [employer] 12-11-2022 07:58-0500 Respiratory rate 16 /min Georges Doe MD Work Phone: [facility] [employer] 12-11-2022 07:58-0500 SaO2% (BldA) [Mass fraction] 97 % Georges Doe MD Work Phone: [employer] 12-11-2022 07:58-0500 Systolic blood pressure 156 mm[Hg] Georges Doe MD Work Phone: [employer] 12-07-2022 11:44-0500 Body height 165.1 cm Georges Doe MD Work Phone: [employer] 12-07-2022 11:44-0500 Body mass index (BMI) [Ratio] 34.61 kg/m2 Georges Doe MD Work Phone: [employer] 12-07-2022 11:44-0500 Body weight 94.35 kg Georges Doe MD Work Phone: [employer] 11-24-2022 11:44-0500 Body height 165.1 cm [facility] [employer] 11-24-2022 11:44-0500 Body mass index (BMI) [Ratio] 34.95 kg/m2 [facility] 11-24-2022 11:44-0500 Body temperature 98.4 [degF] [facility] 11-24-2022 11:44-0500 Body weight 95.25 kg [facility] [employer] 11-24-2022 11:44-0500 Diastolic blood pressure 45 mm[Hg] Stv [facility] 11-24-2022 11:44-0500 Heart rate 60 /min [facility] [employer] 11-24-2022 11:44-0500 Respiratory rate 15 /min St[facility] 11-24-2022 11:44-0500 SaO2% (BldA) [Mass fraction] 93 % [facility] 11-24-2022 11:44-0500 Systolic blood pressure 131 mm[Hg] St[facility] Encounters Encounter Date Encounter Type Care Provider Facility Start: 06-25-2025 End: 06-25-2025 ambulatory Ra Maravilla [facility] Work Phone: Start: 06-25-2025 End: 06-25-2025 Departed Referred Ra Cohne DO -[facility] Start: 06-18-2025 End: 06-19-2025 Telephone encounter Joie FRIEND Work Phone: [facility] Comment on above: OTC Tylenol not work ing Start: 06-11-2025 End: 06[facility]13[facility]: 06-10-2025 End: 06-10-2025 [facility] Start: 06-08-2025 End: 06-08-2025 Emergency department patient visit VJ GRAY [facility] Start: 06-06-2025 End: 06-06-2025 Bamboo flowsheet Joie FRIEND Work Phone: [facility] Start: 06-06-2025 End: 06-06-2025 Bamboo flowsheet Joie FRIEND Work Phone: [facility] Start: 06-06-2025 End: 06-06-2025 Office outpatient visit 15 minutes Joie FRIEND Work Phone: [facility] Comment on above: Acute right hip pain (Primary Dx); Acute pain of both hips; Closed avulsion fracture of right hip with routine healing, subsequent encounter Start: 06-06-2025 End: 06-06-2025 ambulatory JOIE GOLDBERG Not Available Start: 06-05-2025 End: 06-05-2025 Transitional care manage srvc 14 day discharge Vj Gray 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 Work Phone: [facility] - [facility] Comment on above: Hospital discharge f ollow-up (Primary Dx); Closed fracture of right hip, sequela Start: 06-05-2025 End: 06-05-2025 ambulatory VJ D [facility] Start: 06-04-2025 End: 06-04-2025 ambulatory [facility] Start: 05-30-2025 End: 05-30-2025 ambulatory [facility] Start: 05-29-2025 End: 05-30-2025 Emergency department patient visit [facility] Start: 05-28-2025 End: 05-28-2025 ambulatory [facility] Start: 05-22-2025 End: 05-22-2025 ambulatory VALE RIBEIROPAT [facility] Start: 05-15-2025 End: 05-15-2025 ambulatory ANA Mendoza DIANN [facility] Start: 05-14-2025 End: 05-14-2025 ambulatory KENNETH Vicki LU [facility] Start: 05-13-2025 End: 05-15-2025 Evaluation and management of inpatient Jack Milligan DO Work Phone: [facility] Comment on above: Acute respiratory fa ilure with hypoxia ([facility]) (Primary Dx); Nondisplaced fracture of lesser trochanter of right femur, initial encounter for closed fracture ([facility]); Generalized weakness; Closed fracture of right hip, initial encounter ([facility]); Hypoxia; Type 2 diabetes mellitus with hypoglycemia without coma, with long-term current use of insulin ([facility]) Start: 05-12-2025 End: 05-12-2025 Emergency department patient visit [facility] Start: 05-12-2025 End: 05-12-2025 ambulatory [facility] Start: 05-11-2025 End: 05-11-2025 Emergency department patient visit [facility] Start: 05-09-2025 End: 05-10-2025 Emergency department patient visit [facility] Start: 05-01-2025 End: 05-01-2025 ambulatory [facility] Start: 04-28-2025 End: 04-28-2025 Emergency department [facility] Start: 04-05-2025 End: 04-05-2025 ambulatory CLIFF VIVAR [facility] Start: 04-04-2025 End: 04-04-2025 Office outpatient visit 15 minutes Pam Ley APRN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 Work Phone: [facility] Comment on above: Moderate major depre ssion ([facility]) (Primary Dx); Insomnia, unspecified type; Normal pressure hydrocephalus ([facility]); Acute on chronic diastolic heart failure ([facility]); Diabetes mellitus type 2, insulin dependent ([facility]) Start: 04-04-2025 End: 04-04-2025 ambulatory [facility] Start: 04-03-2025 End: 04-03-2025 ambulatory Pfo Infusion Chair 4 Stephany Landaverde [facility] Comment on above: Staphylococcus aureu s bacteremia with sepsis ([facility]) (Primary Dx); MRSA (methicillin resistant Staphylococcus aureus) Start: 04-01-2025 End: 04-02-2025 ambulatory Pfo Infusion Bed 1 Stephany Esquivel [facility] Comment on above: Staphylococcus aureu s bacteremia with sepsis ([facility]) (Primary Dx); MRSA (methicillin resistant Staphylococcus aureus) Start: 03-30-2025 End: 04-02-2025 ambulatory Pfo Infusion Bed 1 Stephany Esquivel [facility] Comment on above: Staphylococcus aureu s bacteremia with sepsis ([facility]) (Primary Dx); MRSA (methicillin resistant Staphylococcus aureus) Start: 03-28-2025 End: 03-28-2025 ambulatory Pfo Infusion Bed 1 Stephany Esquivel [facility] Comment on above: Staphylococcus aureu s bacteremia with sepsis ([facility]) (Primary Dx); MRSA (methicillin resistant Staphylococcus aureus) Start: 03-26-2025 End: 03-26-2025 ambulatory Pfo Infusion Chair 4 Stephany Landaverde [facility] Comment on above: Staphylococcus aureu s bacteremia with sepsis ([facility]) (Primary Dx); MRSA (methicillin resistant Staphylococcus aureus) Start: 03-24-2025 End: 03-24-2025 Emergency department [facility] Start: 03-24-2025 End: 03-24-2025 ambulatory Pfo Infusion Chair 4 Stephany Landaverde [facility] Comment on above: Staphylococcus aureu s bacteremia with sepsis ([facility]) (Primary Dx); MRSA (methicillin resistant Staphylococcus aureus) Start: 03-23-2025 ambulatory [facility] Start: 03-22-2025 End: 03-22-2025 ambulatory Pfo Infusion Chair 4 Stephany Landaverde [facility] Comment on above: Staphylococcus aureu s bacteremia with sepsis ([facility]) (Primary Dx); MRSA (methicillin resistant Staphylococcus aureus) Start: 03-22-2025 End: 03-22-2025 [facility] Start: 03-20-2025 End: 03-20-2025 Social Work Monik BRADLEYW [facility] Comment on above: Staphylococcus aureu s bacteremia with sepsis ([facility]) (Primary Dx); MRSA (methicillin resistant Staphylococcus aureus) Start: 03-16-2025 End: 03-20-2025 Emergency department patient visit SASHA Kyara [facility] Start: 03-16-2025 End: 03-19-2025 Evaluation and management of inpatient [facility] Start: 03-14-2025 End: 03-14-2025 ambulatory Pfo Infusion Chair 4 Stephany Landaverde [facility] Comment on above: Staphylococcus aureu s bacteremia with sepsis ([facility]) (Primary Dx); MRSA (methicillin resistant Staphylococcus aureus) Start: 03-12-2025 End: 03-12-2025 ambulatory Pfo Infusion Chair 4 Stephany Landaverde [facility] Comment on above: Staphylococcus aureu s bacteremia with sepsis ([facility]) (Primary Dx); MRSA (methicillin resistant Staphylococcus aureus) Start: 03-09-2025 End: 03-09-2025 Orders Only Fátima Landaverde [facility] Comment on above: Staphylococcus aureu s bacteremia with sepsis ([facility]) (Primary Dx) Start: 03-08-2025 End: 03-08-2025 Orders Only Janay Causey [facility] Work Phone: Stephany Landaverde [facility]cology Comment on above: MRSA (methicillin re sistant Staphylococcus aureus) (Primary Dx); Staphylococcus aureus bacteremia with sepsis ([facility]) Start: 02-18-2025 End: 02-18-2025 Telephone encounter Kimberley Escudero [facility] Call Belkis correa Comment on above: critical lab Start: 02-15-2025 End: 02-15-2025 ambulatory CHRISTINE RODRIGUEZ [facility] Start: 02-14-2025 End: 02-24-2025 Evaluation and management [facility] Start: 02-12-2025 End: 02-14-2025 Evaluation and management of inpatient [facility] Start: 02-12-2025 End: 02-12-2025 Kendall Villar Work Phone: [facility] Start: 02-12-2025 ambulatory Kendall Villar [facility] Start: 02-03-2025 End: 02-03-2025 ambulatory [facility] Start: 02-02-2025 End: 02-02-2025 ambulatory [facility] Start: 01-25-2025 End: 01-25-2025 Office outpatient visit 40 minutes Casimiro Muñoz MD Work Phone: Stephany Carnes [facility] - Medical Oncology Comment on above: Malignant neoplasm o f upper-outer quadrant of right breast in female, estrogen receptor positive (CMS-HCC) (Primary Dx); Metastasis to bone (CMS-HCC) Start: 01-25-2025 End: 01-25-2025 ambulatory CASIMIRO MUÑOZ [facility] Start: 01-22-2025 End: 01-22-2025 ambulatory [facility] Start: 01-22-2025 End: 01-22-2025 ambulatory [facility] Start: 01-22-2025 End: 01-22-2025 Office outpatient visit 15 minutes Pam Ley 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 Work Phone: [facility] - [facility] Comment on above: Insomnia, unspecifie d type (Primary Dx); Moderate episode of recurrent major depressive disorder (CMS-HCC); Stage 3b chronic kidney disease ([facility]) Start: 01-18-2025 End: 01-18-2025 Office outpatient new 45 minutes Kendall Al Bessie Work Phone: [facility] Start: 01-18-2025 End: 01-22-2025 Refill Pam 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 Work Phone: [facility] Comment on above: Neuropathy due to ty pe 2 diabetes mellitus ([facility]) Start: 01-15-2025 End: 01-15-2025 Orders Only Fátima Landaverde [facility] - Medical On[facility] Comment on above: Malignant neoplasm o f upper-outer quadrant of right breast in female, estrogen receptor positive ([facility]) (Primary Dx) Start: 01-11-2025 End: 01-11-2025 Emergency department patient visit [facility] Start: 01-10-2025 End: 01-10-2025 Emergency department patient visit NING [facility] Start: 01-03-2025 End: 01-03-2025 Emergency department patient visit [facility] Start: 12-05-2024 ambulatory Sarai Harris [facility] [place] Start: 12-04-2024 End: 12-04-2024 ambulatory MEHNAZ [facility] Start: 11-28-2024 End: 11-28-2024 Office outpatient visit 25 minutes Pam 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 Work Phone: [facility] - [facility] Comment on above: 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 ([facility]) (Primary Dx); Insomnia, unspecified type; Elevated troponin level; Recurrent UTI Start: 11-28-2024 End: 11-28-2024 ambulatory [facility] Start: 11-24-2024 End: 11-24-2024 Office outpatient visit 25 minutes Radha Troy MD Work Phone: [facility] Comment on above: Nonrheumatic aortic valve stenosis (Primary Dx); S/p TAVR (transcatheter aortic valve replacement), bioprosthetic; Coronary artery disease involving chipewwa coronary artery of chipewwa heart without angina pectoris Start: 11-24-2024 End: 11-24-2024 [facility] Start: 11-23-2024 End: 11-23-2024 Telephone encounter Jazz[facility]ega [facility] Start: 11-19-2024 End: 11-19-2024 Emergency department patient visit [facility] Start: 11-17-2024 End: 11-18-2024 Emergency department patient visit [facility] Start: 11-13-2024 End: 11-13-2024 Telephone encounter Irina Brunner MD Work Phone: [facility] Comment on above: Hospital Follow-up Start: 11-10-2024 End: 11-10-2024 Telephone encounter Maddie Givens RN Work Phone: [facility] Start: 11-09-2024 End: 11-10-2024 [facility] Start: 10-27-2024 End: 10-30-2024 Evaluation and management of inpatient [facility] Start: 10-25-2024 End: 10-25-2024 Orders Only Sacha Rosales DO Work [facility]: [facility] Start: 10-11-2024 End: 10-11-2024 Emergency department patient visit [facility] Start: 10-09-2024 End: 10-10-2024 Emergency department patient visit [facility] Start: 09-15-2024 End: 09-15-[address] [facility] Start: 09-06-2024 End: 09-06-2024 Telephone encounter Alice Morrison [facility] Start: 08-29-2024 End: 09-04-2024 Refill Vj D Krotzer 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 Work Phone: [facility] Internal [facility] Start: 08-28-2024 End: 08-28-2024 ambulatory [facility] Start: 08-28-2024 End: 08-28-2024 Transitional care manage srvc 7 day discharge [facility] 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 Work Phone: [facility] Internal Medicine - Family Medicine Comment on above: Hypoglycemia (Primar y Dx); Need for influenza vaccination; Altered mental status, unspecified altered mental status type Start: 08-24-2024 End: 08-24-2024 Refill Vj D Krotzer 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 Work Phone: [facility] Internal Medicine Start: 08-23-2024 End: 08-24-2024 ambulatory [facility] Start: 08-16-2024 End: 08-18-2024 Telephone encounter Delisa Torres RN [facility] - Family Medicine Comment on above: Transition Of Care Start: 08-12-2024 End: 08-14-2024 Evaluation and management of inpatient MELY Patel [facility] Start: 07-12-2024 End: 07-12-2024 Refill Vj D Krotzer 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 Work Phone: [facility] Internal Medicine Start: 06-25-2024 End: 06-27-2024 Emergency department patient visit LYD[facility] Start: 06-21-2024 End: 06-21-2024 Transitional care manage srvc 7 day discharge [facility] 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 Work Phone: [facility] Internal Medicine - Family Medicine Comment on above: Hypoglycemia (Primar y Dx); Mild intermittent reactive airway disease with acute exacerbation Start: 06-21-2024 End: 06-21-2024 ambulatory [facility] Start: 06-02-2024 End: 06-05-2024 Refill Pam Estrella 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 Work Phone: [facility] Comment on above: Essential hypertensi on; Major depressive disorder in partial remission, unspecified whether recurrent ([facility]) Start: 05-11-2024 End: 05-12-2024 Refill Pam Mcneilillo 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 Work Phone: [facility] Comment on above: Major depressive dis order in partial remission, unspecified whether recurrent ([facility]) Start: 05-03-2024 End: 05-03-2024 Transitional care manage srvc 7 day discharge Pambrannon 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 Work Phone: [facility] - Family Medicine Comment on above: Pneumonia due to oth er specified organism (Primary Dx) Start: 03-09-2024 End: 03-09-2024 Office outpatient visit 25 minutes Casimiro Muñoz MD Work Phone: Stephany Landaverde [facility] - Medical Oncology Comment on above: Malignant neoplasm o f upper-outer quadrant of right breast in female, estrogen receptor positive ([facility]) (Primary Dx); Metastasis to bone ([facility]) Start: 03-09-2024 End: 03-09-2024 Orders Only Rosario Strong RN [place] Trice Landaverde [facility] - Medical Oncology Comment on above: 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, unspecified estrogen receptor status ([facility]) (Primary Dx); 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 breast in female, estrogen receptor positive ([facility]) Start: 02-28-2024 End: 05-25-2024 Telephone encounter Maria Del Carmen Holland RN [facility] Start: 02-09-2024 End: 02-09-2024 Office outpatient visit 25 minutes Pam 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 Work Phone: [facility] Comment on above: Acute cystitis witho ut hematuria (Primary Dx); Urge incontinence of urine Start: 01-04-2024 Refill Casimiro Muñoz MD Work Phone: Stephany Landaverde [facility] - Medical Oncology Comment on above: 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, unspecified estrogen receptor status (CMS-HCC) Start: 12-15-2023 End: 12-15-2023 Office outpatient visit 25 minutes Pam 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 Work Phone: [facility] Comment on above: Upper respiratory tr act infection, unspecified type (Primary Dx); Normal pressure hydrocephalus (CMS-HCC); Moderate episode of recurrent major depressive disorder (CMS-HCC); PVD (peripheral vascular disease) (CMS-HCC); 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); Stage 3b chronic kidney disease (CMS-HCC); Major depressive disorder in partial remission, unspecified whether recurrent ([facility]); Essential hypertension; GERD without esophagitis; 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 ([facility]) Start: 12-06-2023 Refill Pam nam 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 Work Phone: [facility] Comment on above: Insomnia, unspecifie d type Start: 11-25-2023 End: 11-25-2023 Office outpatient visit 25 minutes Casimiro Muñoz MD Work Phone: Stephany Landaverde [facility] - Medical Oncology Comment on above: 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, unspecified estrogen receptor status (CMS-HCC) (Primary Dx); 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 breast in female, estrogen receptor positive (CMS-HCC) Start: 11-25-2023 Orders Only Rosario Carnes Dickey [facility] - Medical Oncology Comment on above: 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, unspecified estrogen receptor status (CMS-HCC) (Primary Dx); 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 breast in female, estrogen receptor positive (CMS-HCC) Start: 01-13-2023 End: 01-16-2023 [facility] Start: 01-13-2023 End: 01-15-2023 Subsequent hospital visit by physician Georges Doe MD Work Phone: [facility] Observation Comment on above: Arrived Severe aortic valve stenosis (Primary Dx); Type 2 diabetes mellitus with diabetic neuropathy, with long-term current use of insulin (HCC); Tremors of nervous system; Family history of coronary arteriosclerosis; CHELSEA (obstructive sleep apnea) nonadherent with cpap; Stage 3a chronic kidney disease (HCC); Coronary artery disease involving chipewwa coronary artery of chipewwa heart without angina pectoris Aortic valve stenosi s, etiology of cardiac valve disease unspecified Start: 12-07-2022 End: 12-11-2022 ambulatory AFSHINMadeline KWADWOLARA [facility] Start: 12-07-2022 End: 12-11-2022 Subsequent hospital visit by physician Georges Doe MD Work Phone: [facility] Stepdown Comment on above: Severe aortic valve stenosis (Primary Dx) Start: 11-24-2022 End: 11-25-2022 ambulatory NOLAN JOSE JHA [facility] Start: 11-24-2022 End: 11-24-2022 Subsequent hospital visit by physician Kaylin Clinical Ob Daryl COBBVEstefanía Clinical Ob Comment on above: Canceled (Case cance lled) Start: 09-28-2022 End: 09-30-2022 Evaluation and management of inpatient MICHAEL SANCHEZ [facility] Start: 03-31-2022 End: 04-01-2022 ambulatory Vale Bowser Facility:[facility] Start: 03-26-2021 End: 03-27-2021 [facility]ulatory [facility] Start: 03-24-2021 End: 03-25-2021 ambulatory LAKESHIA HENRIQUEZ [facility] Start: 03-24-2021 End: 03-24-2021 Subsequent [facility] Start: 03-19-2021 End: 03-20-2021 ambulatory PAM LEY Facility: Start: 05-24-2013 End: 05-24-2013 Gordy Momin Jr Work Phone: ANGELA Lester Start: 04-26-2013 End: 04-26-2013 Gordy Momin Jr Work Phone: [facility] Start: 03-29-2013 End: 03-29-2013 Gordy Momin Jr Work Phone: [facility] Start: 02-01-2013 End: 02-01-2013 Gordy Momin Jr Work Phone: [facility] Start: 12-21-2012 End: 12-21-2012 Gordy Momin Jr Work Phone: [facility] Start: 11-02-2012 End: 11-02-2012 Office outpatient visit 15 minutes Gordy Momin Jr Work Phone: [facility] Start: 10-05-2012 End: 10-05-2012 Office outpatient visit 15 minutes Gordy Momin Jr Work Phone: [facility] Start: 08-31-2012 End: 08-31-2012 Office outpatient visit 15 minutes Gordy Momin Jr Work Phone: [facility] Start: 08-25-2012 End: 08-25-2012 Gordy Momin Jr Work Phone: [facility] Procedures Date Procedure Procedure Detail Performing Clinician Start: 06-06-2025 Radiologic examinati on pelvis 1/2 views Joie FRIEND Work Phone: Start: 06-05-2025 Adult depression scr eening assessment Vj Gray 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 Work Phone: Start: 05-15-2025 BEDSIDE GLUCOSE Felix Hallman MD Work Phone: Start: 05-15-2025 Comprehensive metabo lic panel Nayana Bermudez 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 Work Phone: Start: 05-15-2025 EXTRA TUBES Felix Hallman MD Work Phone: Start: 05-15-2025 EXTRA TUBES SST TOP Ruq marco antonio Hallman MD Work Phone: Start: 05-14-2025 BEDSIDE GLUCOSE Felix Hallman MD Work Phone: Start: 05-14-2025 Assay of magnesium Vj Perezstacie 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 Work Phone: Start: 05-14-2025 BEDSIDE GLUCOSE Felix Hallman MD Work Phone: Start: 05-14-2025 Ct head/brain w/o co ntrast material Vj Gray 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 Work Phone: Start: 05-14-2025 BEDSIDE GLUCOSE Felix Hallman MD Work Phone: Start: 05-14-2025 End: 05-14-2025 Comprehensive metabolic panel Nayana Bermudez 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 Work Phone: Start: 05-13-2025 BEDSIDE GLUCOSE Thania Martinez MD Work Phone: Start: 05-13-2025 Blood count hemoglobin Juanmadeline Bermudez 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 Work Phone: Start: 05-13-2025 EXTRA TUBES Thania Martinez MD Work Phone: Start: 05-13-2025 EXTRA TUBES PST TOP Sherman Martinez MD Work Phone: Start: 05-13-2025 BEDSIDE GLUCOSE Jack Milligan DO Work Phone: Start: 05-13-2025 Ct lower extremity w /o contrast material Jazmine Bustillo 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 Work Phone: Start: 05-13-2025 Assay of troponin quantitative Jazmine Bustillo 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 Work Phone: Start: 05-13-2025 PM ED CRITICAL CARE Petros Bustillo 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 Work Phone: Start: 05-13-2025 Blood gases any comb ination ph pco2 po2 co2 hco3 Jack A Park DO Work Phone: Start: 05-13-2025 EXTRA TUBES Jack A Pa rk DO Work Phone: Start: 05-13-2025 EXTRA TUBES BLUE TOP Del Santos Park DO Work Phone: Start: 05-13-2025 End: 05-13-2025 Culture bacterial blood aerobic w/id isolates Jazmine Vicki Keny [facility] Work Phone: Start: 05-13-2025 C-reactive protein Silvina el Vicki Keny [facility] Work Phone: Start: 05-13-2025 End: 05-13-2025 Comprehensive metabolic panel [facility]ust[facility] Work Phone: Start: 05-13-2025 Radiologic exam ches t single view Jazmine Vicki Keny [facility] Work Phone: Start: 05-13-2025 Ecg routine ecg w/le ast 12 lds trcg only w/o i&r Jazmine Bustillo [facility] Work Phone: Start: 04-04-2025 Adult depression scr eening assessment Pam Mcneilillo [facility] Work Phone: Start: 03-26-2025 Basic metabolic pane l calcium total Delgado Bryant MD Work Phone: Start: 01-18-2025 End: 01-18-2025 Bevacizumab injection Kendall Villar MD Start: 01-18-2025 End: 01-18-2025 Computerized ophthalmic imaging retina Kendall Villar MD Start: 01-18-2025 Fundus Photos No Charge Sarai Harris Start: 01-18-2025 End: 01-18-2025 Fundus Photos No Charge Bilateral Kendall Villar MD Start: 01-18-2025 End: 01-18-2025 Intravitreal njx pharmacologic agt spx Kendall Villar MD Start: 11-28-2024 Adult depression scr eening assessment Pam Ley [facility] Work Phone: Start: 11-24-2024 Follow-up visit Follow-up RADHA TROY Start: 10-28-2024 Adult depression scr eening assessment Maddie Givens RN Work Phone: Start: 08-28-2024 Adult depression scr eening assessment Pam Ley [employer] Work Phone: Start: 06-21-2024 Follow-up visit Follow-up PAM LEY Start: 06-21-2024 Adult depression scr eening assessment Pam Ley [employer] Work Phone: Start: 05-03-2024 Adult depression scr eening assessment Pam Ley [facility] Work Phone: Start: 03-02-2024 Adult depression scr eening assessment Rosario Strong RN Start: 02-09-2024 Urnls dip stick/tabl et rgnt non-auto w/o micrscp Pam Ley [facility] Work Phone: Start: 02-09-2024 Adult depression scr eening assessment Pam Ley [facility] Work Phone: Start: 12-15-2023 Adult depression scr eening assessment Pam Ley [facility] Work Phone: Start: 08-17-2023 Adult depression scr eening assessment Rosario Strong RN Start: 01-13-2023 Brncdilat rspse spmt ry pre&post-brncdilat admn 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 [employer] - [facility] Work Phone: Start: 01-13-2023 Ct angiography chest w/contrast/noncontrast 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 [employer] [facility] Work Phone: Start: 12-11-2022 Glucose blood reagent strip Georges Doe MD Work Phone: Start: 12-10-2022 Glucose blood reagent strip Georges Doe MD Work Phone: Start: 12-10-2022 Glucose blood reagent strip Georges Doe MD Work Phone: Start: 12-10-2022 Glucose blood reagent strip Georges Doe MD Work Phone: Start: 12-10-2022 Basic metabolic pane l calcium total Rita Leos [employer]ATOR RE[employer]ER 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 Work Phone: Start: 12-10-2022 Antibody screen Georges morales MD Work Phone: Start: 12-10-2022 End: 12-10-2022 Glucose blood reagent strip Georges Doe MD Work Phone: Start: 12-09-2022 End: 12-09-2022 Blood count hemoglobin Georges Doe MD Work Phone: Start: 12-09-2022 Glucose blood reagent strip Georges Doe MD Work Phone: Start: 12-09-2022 End: 12-09-2022 Transfusion of packed red blood cells Radha Moya [employer] - [facility] Work Phone: Start: 12-09-2022 Glucose blood reagent strip Georges Doe MD Work Phone: Start: 12-09-2022 BASIC METABOLIC PANE L W/ REFLEX TO MG FOR LOW K Nadira Jin MD Start: 12-09-2022 End: 12-09-2022 Blood count hemoglobin Nadira Jin MD Start: 12-08-2022 Glucose blood reagent strip Georges Doe MD Work Phone: Start: 12-08-2022 Blood count hemoglobin Hemindermrachel Trejo MD Work Phone: Start: 12-08-2022 Glucose blood reagent strip Georges Doe MD Work Phone: Start: 12-08-2022 Blood count hemoglobin Georges Doe MD Work Phone: Start: 12-08-2022 BASIC METABOLIC PANE L W/ REFLEX TO MG FOR LOW K Ryan Velasquez MD Work Phone: Start: 12-08-2022 SPECIMEN REJECTION Edward Velasquez MD Work Phone: Start: 12-08-2022 End: 12-08-2022 Blood count hemoglobin Georges Doe MD Work Phone: Start: 12-08-2022 End: 12-08-2022 Transfusion of packed red blood cells Lexx Franklin MD Work Phone: Start: 12-08-2022 Blood count hemoglobin Lexx Franklin MD Work Phone: Start: 12-08-2022 Basic metabolic pane l calcium total Nadira Jin MD Start: 12-07-2022 End: 12-07-2022 Blood count hemoglobin Georges Doe MD Work Phone: Start: 12-07-2022 Glucose blood reagent strip Georges Doe MD Work Phone: Start: 12-07-2022 End: 12-07-2022 Transfusion of packed red blood cells Georges Doe MD Work Phone: Start: 12-07-2022 Dup-scan lxtr art/ar tl bpgs uni/lmtd study Sebastian Martinez MD Work Phone: Start: 12-07-2022 End: 12-07-2022 Blood count hemoglobin Georges Doe MD Work Phone: Start: 12-07-2022 Blood typing serologic abo Georges Doe MD Work Phone: Start: 12-07-2022 Coagulation time activated Georges Doe MD Work Phone: Start: 12-07-2022 Cardiac catheterization Nadira Jin MD Start: 12-07-2022 Chloride [Moles/volu me] in Serum or Plasma Georges Doe MD Work Phone: Start: 12-07-2022 CREATININE W/GFR POI NT OF CARE Georges Doe MD Work Phone: Start: 12-07-2022 Gluc bld gluc mntr d ev cleared fda spec home use Georges Doe MD Work Phone: Start: 12-07-2022 Potassium [Moles/vol ume] in Serum or Plasma Georges Doe MD Work Phone: Start: 12-07-2022 Sodium [Moles/volume ] in Serum or Plasma Georges Doe MD Work Phone: Start: 11-24-2022 Chloride [Moles/volu me] in Serum or Plasma Nolan Jha MD Work Phone: Start: 11-24-2022 CREATININE W/GFR POI NT OF CARE Nolan Jha MD Work Phone: Start: 11-24-2022 End: 11-24-2022 Gluc bld gluc mntr dev cleared fda spec home use Nolan Jha MD Work Phone: Start: 11-24-2022 Potassium [Moles/vol ume] in Serum or Plasma Nolan Jha MD Work Phone: Start: 11-24-2022 Sodium [Moles/volume ] in Serum or Plasma Nolan Jha MD Work Phone: Start: 03-24-2021 Assay of blood/uric acid Lakeshia Henriquez APRN - 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 Work Phone: Start: 05-24-2013 End: 05-24-2013 Diabetic Dilated Exam Kendall Villar MD Start: 05-24-2013 End: 05-24-2013 [facility] intermediate estab pt Kendall Villar MD Start: 04-26-2013 End: 04-26-2013 Diabetic Dilated Exam Kendall Villar MD Start: 04-26-2013 End: 04-26-2013 Intravitreal njx pharmacologic agt spx Kendall Villar MD Start: 04-26-2013 End: 04-26-2013 [facility] intermediate estab pt Kendall Villar MD Start: 04-26-2013 End: 04-26-2013 Ranibizumab injection Kendall Villar MD Start: 03-29-2013 End: 03-29-2013 Diabetic Dilated Exam Kendall Villar MD Start: 03-29-2013 End: 03-29-2013 Intravitreal njx pharmacologic agt spx Kendall Villar MD Start: 03-29-2013 End: 03-29-2013 [facility]al comprhnsv estab pt 1/> Kendall Villar MD Start: 03-29-2013 End: 03-29-2013 Ranibizumab injection Kendall Villar MD Start: 02-01-2013 End: 02-01-2013 Intravitreal njx pharmacologic agt spx Kendall Villar MD Start: 02-01-2013 End: 02-01-2013 [facility] intermediate estab pt Kendall Villar MD Start: 02-01-2013 End: 02-01-2013 Ranibizumab injection Kendall Villar MD Start: 12-21-2012 End: 12-21-2012 Intravitreal njx pharmacologic agt spx Kendall Villar MD Start: 12-21-2012 End: 12-21-2012 [facility] Kendall Villar MD Start: 12-21-2012 End: 12-21-2012 Ranibizumab injection Kendall Villar MD Start: 11-02-2012 End: 11-02-2012 Computerized ophthalmic imaging retina Kendall Villar MD Start: 11-02-2012 End: 11-02-2012 Intravitreal njx pharmacologic agt spx Kendall Villar MD Start: 11-02-2012 End: 11-02-2012 Ranibizumab injection Kendall Villar MD Start: 10-05-2012 End: 10-05-2012 Computerized ophthalmic imaging retina Kendall Villar MD Start: 10-05-2012 End: 10-05-2012 Intravitreal njx pharmacologic agt spx Kendall Villar MD Start: 10-05-2012 End: 10-05-2012 Ranibizumab injection Kendall Villar MD Start: 08-31-2012 End: 08-31-2012 Computerized ophthalmic imaging retina Kendall Villar MD Start: 08-31-2012 End: 08-31-2012 Intravitreal njx pharmacologic agt spx Kendall Villar MD Start: 08-31-2012 End: 08-31-2012 Ranibizumab injection Kendall Villar MD Plan of Treatment Date Care Activity Detail Author Start: 06-05-2026 Depression Screening Depression Screening [facility] Start: 06-05-2026 Fall Risk Screening Fall Risk Screening [facility] Start: 06-05-2026 Tobacco Screening Tobacco Screening [facility] Start: 04-04-2026 Depression Screening Depression Screening [facility] Start: 04-04-2026 Fall Risk Screening [facility] Start: 04-04-2026 Tobacco Screening Tobacco Screening [facility] Start: 04-03-2026 Tobacco Screening Tobacco Screening [facility] Start: 03-28-2026 Tobacco Screening Tobacco Screening [facility] Start: 03-26-2026 Tobacco Screening Tobacco Screening [facility] Start: 03-22-2026 Tobacco Screening Tobacco Screening [facility] Start: 03-20-2026 Fall Risk Screening Fall Risk Screening [facility] Start: 03-20-2026 Tobacco Screening Tobacco Screening [facility] Start: 03-14-2026 Tobacco Screening Tobacco Screening [facility] Start: 02-14-2026 Tobacco Screening Tobacco Screening [facility] Start: 02-03-2026 Urine screening for protein Diabetes: Urine Protein Screening [facility] Start: 01-25-2026 Tobacco Screening Tobacco Screening [facility] Start: 01-22-2026 Tobacco Screening Tobacco Screening [facility] Start: 01-10-2026 Tobacco Screening Tobacco Screening [facility] Start: 11-28-2025 Depression Screening Depression Screening [facility] Start: 11-28-2025 Fall Risk Screening Fall Risk Screening [facility] Start: 11-28-2025 Tobacco Screening Tobacco Screening [facility] Start: 11-17-2025 Tobacco Screening Tobacco Screening [facility] Start: 11-09-2025 Tobacco Screening Tobacco Screening [facility] Start: 10-28-2025 Depression Screening Depression Screening [facility] Start: 10-11-2025 Tobacco Screening [facility] Start: 09-05-2025 End: 09-05-2025 Patient encounter procedure 09/05/2025 1:00 PM EDT Office Visit [facility] - Family Medicine [address] [place] [phone] Vj Gray, 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 [address], [address] [address] [facility] Internal Medicine - Family Medicine Start: 08-28-2025 Adult BMI Screening Adult BMI Screening [facility] Start: 08-28-2025 Depression Screening Depression Screening [facility] Start: 08-28-2025 Fall Risk Screening Fall Risk Screening [facility] Start: 08-28-2025 Tobacco Screening Tobacco Screening [facility] Start: 08-24-2025 Adult BMI Screening Adult BMI Screening [facility] Start: 08-23-2025 Tobacco Screening Tobacco Screening [facility] Start: 08-12-2025 Adult BMI Screening Adult BMI Screening [facility] Start: 08-12-2025 Tobacco Screening Tobacco Screening [facility] Start: 07-16-2025 Influenza vaccination [facility] Start: 07-10-2025 End: 07-10-2025 Patient encounter procedure [facility] Start: 06-28-2025 Tobacco Screening Tobacco Screening [facility] Start: 06-26-2025 Bacteria identified in Urine by Culture Urine Culture [facility] Start: 06-26-2025 Urine culture [facility] Start: 06-25-2025 Adult BMI Screening Adult BMI Screening [facility] Start: 06-25-2025 Tobacco Screening Tobacco Screening [facility] Start: 06-21-2025 Depression Screening Depression Screening [facility] Start: 06-21-2025 Fall Risk Screening Fall Risk Screening [facility] Start: 06-06-2025 End: 06-06-2025 Patient encounter procedure 06/06/2025 1:30 PM EDT Office Visit [facility] [address] [place] [address] Joie Goldberg, PA [address] [place] [address] Acute right hip pain (Primary Dx) [facility] Comment on above: Acute right hip pain (Primary Dx) Start: 05-22-2025 End: 05-15-2026 Basic metabolic 2000 panel - Serum or Plasma Basic Metabolic Panel Lab Routine Type 2 diabetes mellitus with hypoglycemia without coma, with long-term current use of insulin ([facility]) Expected: 05/22/2025 (Approximate), Expires: 05/15/2026 [facility] Work Phone: Comment on above: Expected: 05/22/2025 (Approximate), Expi res: 05/15/2026 Start: 05-03-2025 End: 05-03-2025 Patient encounter procedure 05/03/2025 2:15 PM EDT Office Visit [facility] Oncology [address] [place] [phone] Casimiro Muñoz [place] [address] [place] [address] [facility] Start: 05-03-2025 Adult BMI Screening Adult BMI Screening [facility] Start: 05-03-2025 Depression Screening Depression Screening [facility] Start: 05-03-2025 Fall Risk Screening Fall Risk Screening [facility] Start: 05-03-2025 Tobacco Screening Tobacco Screening [facility] Start: 04-10-2025 End: 04-10-2025 Patient encounter procedure 04/10/2025 3:20 PM EDT [facility] [address] [place] [address] Pam Ley, 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 [address] [place] [phone] [facility] Start: 04-04-2025 End: 04-04-2025 Patient encounter procedure 04/04/2025 9:00 AM EDT [facility] [address] [place] [phone] Pam Ley, 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 [address] [place] [phone] [facility] Start: 04-03-2025 End: 04-03-2025 ambulatory 04/03/2025 8:00 AM EDT Infusion Stephany Landaverde [facility] - Medical Oncology [address] [place] [phone] Stephany Landaverde [facility] Start: 04-01-2025 End: 04-01-2025 ambulatory 04/01/2025 8:00 AM EDT Infusion Stephany Landaverde [facility] [address] [place] [phone] Stephany Landaverde [facility] Start: 03-30-2025 End: 03-30-2025 ambulatory 03/30/2025 8:00 AM EDT Infusion Stephany Landaverde [facility]cology [address] [place] [phone] Stephany Landaverde [facility] Start: 03-28-2025 End: 03-28-2025 ambulatory 03/28/2025 8:30 AM EDT Infusion Stephany Landaverde [facility]cology [address] [place] [phone] Stephany Landaverde [facility] Start: 03-26-2025 End: 03-26-2025 ambulatory [facility] Start: 03-24-2025 End: 03-24-2025 ambulatory 03/24/2025 8:00 AM EDT Infusion Stephany Landaverde [facility]cology [address] [place] [phone] Stephany Landaverde [facility] Start: 03-22-2025 End: 03-22-2025 ambulatory 03/22/2025 8:30 AM EDT Infusion Stephany Landaverde [facility] [address] [place] [address] [place] [phone] Stephany Landaverde [facility] Medical Oncology Start: 03-20-2025 End: 03-20-2025 ambulatory 03/20/2025 8:00 AM EDT Infusion Stephany Landaverde [facility] Medical Oncology [address] [place] [address] Stephany Landaverde [facility] Oncology Start: 03-18-2025 End: 03-18-2025 ambulatory Stephany Esquivel r [facility] Medical Oncology Start: 03-16-2025 End: 03-16-2025 ambulatory Stephany Esquivel r [facility] Medical Oncology Start: 03-14-2025 End: 03-14-2025 ambulatory Stephany Esquivel r [facility] Oncology Start: 03-12-2025 End: 03-12-2025 ambulatory 03/12/2025 8:00 AM EDT Infusion Stephany Landaverde [facility] Medical Oncology [address] [place] [phone] Stephany Landaverde [facility] Medical Oncology Start: 03-09-2025 Adult BMI Screening Adult BMI Screening [facility] Start: 03-08-2025 Tobacco Screening Tobacco Screening [facility] Start: 03-04-2025 Hemoglobin A1c measurement Diabetes: Hemoglobin A1C [facility] Start: 03-02-2025 Depression Screening Depression Screening [facility] Start: 03-02-2025 Fall Risk Screening Fall Risk Screening [facility] Start: 03-01-2025 End: 03-01-2025 Patient encounter procedure 03/01/2025 2:00 PM EDT Appointment [facility] - Mammography/DEXA Imaging [address] [place] [phone] Casimiro Muñoz MD [address] [facility] [address] [place] [address] [facility]ammography/DEXA Imaging Start: 02-19-2025 Cuca Goodwin 4 Weeks IO AVN OS(2-3) NO OCT [facility] Work Phone: Start: 02-08-2025 Adult BMI Follow Up Plan Adult BMI Follow Up Plan [facility] Start: 01-25-2025 End: 01-25-2025 Patient encounter procedure 01/25/2025 2:15 PM EDT Office Visit Stephany Landaverde [facility] - Medical Oncology [address] [place] [phone] Casimiro Muñoz MD [address] [place] [address] [address] [place] [address] Stephany Landaverde [facility] Start: 01-22-2025 End: 01-22-2025 Patient encounter procedure 01/22/2025 1:40 PM EDT Office Visit [facility] - Family Medicine [address] [place] [phone] Pam Ley, 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 [address] [place] [address] [facility] Start: 01-18-2025 Smoking cessation education Tobacco cessation counseling [facility] Start: 12-15-2024 Adult BMI Follow Up Plan Adult BMI Follow Up Plan [facility] Start: 12-15-2024 Adult BMI Screening Adult BMI Screening [facility] Start: 12-15-2024 Depression Screening Depression Screening [facility] Start: 12-15-2024 Fall Risk Screening Fall Risk Screening [facility] Start: 12-15-2024 Tobacco Screening Tobacco Screening [facility] Start: 11-28-2024 End: 11-28-2024 Patient encounter procedure 11/28/2024 2:40 PM EST Office Visit [facility] - Family Medicine [address] [place] [address] Pam Ley, 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 [address] [place] [address] [facility] Start: 11-25-2024 Adult BMI Screening Adult BMI Screening [facility] Start: 11-24-2024 End: 11-24-2024 Patient encounter procedure 11/24/2024 2:15 PM EST Office Visit [facility] [address] [place] [phone] Radha Troy MD [address] [place] [address] [facility] Start: 11-22-2024 End: 11-22-2024 Patient encounter procedure 11/22/2024 2:40 PM EST Office Visit [facility] Internal Medicine - Family Medicine [address] [place] [phone] Pam Ley, 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 [address] [place] [phone] [facility] Internal Medicine - Family Medicine Start: 09-28-2024 Tobacco Screening Tobacco Screening [facility] Start: 09-13-2024 End: 09-13-2024 Patient encounter procedure 09/13/2024 2:00 PM EDT Appointment [facility] - Cardiovascular [address] [place] [phone] [facility] Cardiovascular Start: 09-08-2024 End: 09-08-2024 Patient encounter procedure 09/08/2024 2:15 PM EDT Office Visit Stephany Landaverde [facility] - Medical Oncology [address] [place] [address] Casimiro Muñoz [place] [address] [place] [address] [address] [place] [address] Stephany Landaverde [facility] On[facility] Start: 09-08-2024 End: 03-09-2025 CBC W Auto Differential panel - Blood CBC auto differential Lab Routine 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 female breast, unspecified estrogen receptor status (CMS-HCC) 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 breast in female, estrogen receptor positive (CMS-HCC) Expected: 09/08/2024 (Approximate), Expires: 03/09/2025 [facility] Comment on above: Expected: 09/08/2024 (Approximate), Expi res: 03/09/2025 Start: 09-08-2024 End: 03-09-2025 Comprehensive metabolic 2000 panel - Serum or Plasma Comprehensive metabolic panel Lab Routine 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 female breast, unspecified estrogen receptor status (CMS-HCC) 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 breast in female, estrogen receptor positive (CMS-HCC) Expected: 09/08/2024 (Approximate), Expires: 03/09/2025 [facility] Comment on above: Expected: 09/08/2024 (Approximate), Expi res: 03/09/2025 Start: 08-31-2024 Adult BMI Follow Up Plan Adult BMI Follow Up Plan [facility] Start: 08-17-2024 Depression Screening Depression Screening [facility] Start: 08-10-2024 Fall Risk Screening Fall Risk Screening [facility] Start: 08-10-2024 Medicare Annual Wellness (AWV) Medicare Annual Wellness (AWV) [facility] Start: 08-10-2024 Medicare Annual Wellness Visit Medicare Annual Wellness Visit [facility] Start: 08-02-2024 End: 08-02-2024 Patient encounter procedure 08/02/2024 1:00 PM EDT Office Visit [facility] Internal Medicine - Family Medicine [address] [place] [address] Pam Ley, 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 [address] [place] [address] [facility] Internal Medicine - Family Medicine Start: 07-16-2024 Influenza vaccination Influenza Vaccine [facility] Start: 07-11-2024 End: 07-11-2024 Patient encounter procedure 07/11/2024 2:30 PM EDT Office Visit [facility] [address] [place] [phone] Luis Oliver MD [address] [facility], [address] [place] [address] [facility] Start: 03-09-2024 End: 03-09-2024 Patient encounter procedure 03/09/2024 3:15 PM EDT Office Visit Stephany L Dickey [facility] - Medical Oncology [address] [place] [phone] Casimiro Muñoz MD [facility] [facility] [address] [place], [place] [phone] Stephany Carnes Dickey [facility] - Medical Oncology Start: 03-09-2024 End: 03-09-2025 MG Breast Diagnostic Mammography diagnostic bilateral with CAD Imaging Routine 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 female breast, unspecified estrogen receptor status (CMS-HCC) 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 breast in female, estrogen receptor positive (CMS-HCC) Expected: 03/09/2024, Expires: 03/09/2025 [employer] Work Phone: Comment on above: Expected: 03/09/2024, Expires: Start: 02-25-2024 End: 11-25-2024 PT Skull base to mid-thigh PET CT skull to thigh Imaging Routine 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 female breast, unspecified estrogen receptor status (CMS-HCC) 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 breast in female, estrogen receptor positive (CMS-HCC) Expected: 02/25/2024, Expires: 11/25/2024 [employer] [facility] Work Phone: Comment on above: Expected: 02/25/2024, Expires: Start: 02-24-2024 End: 11-25-2024 Cancer antigen 15-3 Cancer antigen 15-3 Lab Routine 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 female breast, unspecified estrogen receptor status (CMS-HCC) 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 breast in female, estrogen receptor positive (CMS-HCC) Expected: 02/24/2024 (Approximate), Expires: 11/25/2024 [facility] Comment on above: Expected: 02/24/2024 (Approximate), Expi res: 11/25/2024 Start: 02-24-2024 End: 11-25-2024 Cancer antigen 27-29 Cancer antigen 27-29 Lab Routine 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 female breast, unspecified estrogen receptor status (CMS-HCC) 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 breast in female, estrogen receptor positive (CMS-HCC) Expected: 02/24/2024 (Approximate), Expires: 11/25/2024 [facility] Comment on above: Expected: 02/24/2024 (Approximate), Expi res: 11/25/2024 Start: 02-24-2024 End: 11-25-2024 CBC W Auto Differential panel - Blood CBC auto differential Lab Routine 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 female breast, unspecified estrogen receptor status (CMS-HCC) 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 breast in female, estrogen receptor positive (CMS-HCC) Expected: 02/24/2024 (Approximate), Expires: 11/25/2024 [facility] Comment on above: Expected: 02/24/2024 (Approximate), Expi res: 11/25/2024 Start: 02-24-2024 End: 11-25-2024 Comprehensive metabolic 2000 panel - Serum or Plasma Comprehensive metabolic panel Lab Routine 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 female breast, unspecified estrogen receptor status (CMS-HCC) 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 breast in female, estrogen receptor positive (CMS-HCC) Expected: 02/24/2024 (Approximate), Expires: 11/25/2024 [facility] Comment on above: Expected: 02/24/2024 (Approximate), Expi res: 11/25/2024 Start: 01-13-2024 End: 01-13-2024 Patient encounter procedure 01/13/2024 1:00 PM EST Office Visit [facility] Internal Medicine - Family Medicine [address] [place] [address] Pam Ley, 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 [address] [place] [address] [facility] - [facility] Start: 09-02-2023 Lipid panel Lipids [facility] Start: 02-02-2023 End: 02-02-2023 Patient encounter procedure 02/02/2023 Appointment IP Unit [facility] Start: 01-18-2023 End: 01-14-2024 Basic metabolic 2000 panel - Serum or Plasma Basic Metabolic Panel Lab STAT Severe aortic valve stenosis Expected: 01/18/2023, Expires: 01/14/2024 [employer] Phone: Comment on above: Expected: 01/18/2023, Expires: 4 Start: 12-17-2022 End: 12-10-2023 Basic metabolic 2000 panel - Serum or Plasma Basic Metabolic Panel Lab Routine Severe aortic valve stenosis Expected: 12/17/2022, Expires: 12/10/2023 [employer] Phone: Comment on above: Expected: 12/17/2022, Expires: 4 Start: 12-17-2022 End: 12-10-2023 Hemoglobin and Hematocrit Hemoglobin and Hematocrit Lab Routine Severe aortic valve stenosis Expected: 12/17/2022, Expires: 12/10/2023 [employer] Phone: Comment on above: Expected: 12/17/2022, Expires: 4 Start: 09-28-2022 Annual Wellness Visit (AWV) Annual Wellness Visit (AWV) [facility] Start: 07-16-2021 Influenza vaccination Flu vaccine (Season Ended) [employer] Phone: Start: 04-01-2021 COVID-19 Vaccine (3 - Booster for Pfizer series) COVID-19 Vaccine (3 - Booster for Pfizer series) [employer] Start: 03-04-2021 COVID-19 Vaccine (3 - Pfizer risk series) COVID-19 Vaccine (3 - Pfizer risk series) [facility] Start: 1996 Shingles vaccine (1 of 2) Shingles vaccine (1 of 2) [facility] Start: 1965 Administration of varicella zoster vaccine Zoster (Shingles) Vaccine (1 of 2) [facility] Start: 1965 DTaP,Tdap and Td Vaccines (1 - Tdap) DTaP,Tdap and Td Vaccines (1 - Tdap) [facility] [employer] Start: 1965 DTaP/Tdap/Td vaccine (1 - Tdap) DTaP/Tdap/Td vaccine (1 - Tdap) [facility] Start: 1964 Hepatitis C screening Hepatitis C screen [facility] Start: 1962 COVID-19 Vaccine (1) COVID-19 Vaccine (1) [employer] Phone: Start: 1958 Depression Screen Depression Screen [facility] Start: 1956 Glaucoma screening Diabetes: Retinopathy Screening [facility] Start: 1946 Creatinine measurement Creatinine monitoring [facility] [employer] Phone: Start: 1946 Potassium monitoring Potassium monitoring [facility] Phone: Bacteria identified in Blood by [employer] Phone: End: 02-08-2025 Bacteria identified in Urine by Culture Urine culture (clean catch) Microbiology Routine Acute cystitis without hematuria 1 Occurrences starting 02/09/2024 until 02/08/2025 [employer] Phone: Comment on above: 1 Occurrences starting 02/09/2024 until 02/08/2025 Basic metabolic 2000 panel - Serum or Plasma Basic metabolic panel Lab Routine Staphylococcus aureus bacteremia with sepsis ([facility]) MRSA (methicillin resistant Staphylococcus aureus) 03/12/2025 8:20 AM EDT [email or web address] Basic metabolic 2000 panel - Serum or Plasma Basic metabolic panel Lab Routine Staphylococcus aureus bacteremia with sepsis ([facility]) MRSA (methicillin resistant Staphylococcus aureus) 03/20/2025 9:02 AM EDT [employer] Work Phone: Basic metabolic 2000 panel - Serum or Plasma Basic metabolic panel Lab Routine Staphylococcus aureus bacteremia with sepsis (CMS-HCC) MRSA (methicillin resistant Staphylococcus aureus) 04/03/2025 8:50 AM EDT [facility] End: 12-07-2022 Blood Bank Specimen [facility] Work Phone: Comment on above: Once for 1 Occurrences starting 12/07/19 until 12/07/2022 End: 11-25-2024 Cancer antigen 15-3 Cancer antigen 15-3 Lab Routine 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 female breast, unspecified estrogen receptor status (CMS-HCC) every 3 months for 50 Occurrences starting 11/25/2023 until 11/25/2024 [facility] Comment on above: every 3 months for 50 Occurrences starti ng 11/25/2023 until 11/25/2024 End: 01-15-2026 Cancer antigen 15-3 Cancer antigen 15-3 Lab Routine 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 breast in female, estrogen receptor positive (CMS-HCC) 1 Occurrences starting 01/15/2025 until 01/15/2026 [facility] Comment on above: 1 Occurrences starting 01/15/2025 until 01/15/2026 End: 11-25-2024 Cancer antigen 27-29 Cancer antigen 27-29 Lab Routine 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 female breast, unspecified estrogen receptor status (CMS-HCC) every 3 months for 50 Occurrences starting 11/25/2023 until 11/25/2024 [facility] Comment on above: every 3 months for 50 Occurrences starti ng 11/25/2023 until 11/25/2024 End: 01-15-2026 Cancer antigen 27-29 Cancer antigen 27-29 Lab Routine 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 breast in female, estrogen receptor positive (CMS-HCC) 1 Occurrences starting 01/15/2025 until 01/15/2026 [facility] Comment on above: 1 Occurrences starting 01/15/2025 until 01/15/2026 End: 11-24-2022 Catheterization and angiography procedure details panel Cardiac Catheterization Cardiac Cath Routine One Time for 1 Occurrences starting 11/24/2022 until 11/24/2022 [employer] Work Phone: Comment on above: One Time for 1 Occurrences starting 11/15 until 11/24/2022 End: 12-07-2022 Catheterization and angiography procedure details panel Cardiac Catheterization Cardiac Cath Routine One Time for 1 Occurrences starting 12/07/2022 until 12/07/2022 [employer] Work Phone: Comment on above: One Time for 1 Occurrences starting 11/16 until 12/07/2022 End: 11-25-2024 CBC W Auto Differential panel - Blood CBC with auto diff Lab Routine 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 female breast, unspecified estrogen receptor status ([facility]) every 3 months for 50 Occurrences starting 11/25/2023 until 11/25/2024 [employer] Work Phone: Comment on above: every 3 months for 50 Occurrences starti ng 11/25/2023 until 11/25/2024 End: 01-15-2026 CBC W Auto Differential panel - Blood CBC with auto diff Lab Routine 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 breast in female, estrogen receptor positive ([facility]) 1 Occurrences starting 01/15/2025 until 01/15/2026 [employer] Work Phone: Comment on above: 1 Occurrences starting 01/15/2025 until 01/15/2026 CBC W Auto Different ial panel - Blood CBC with auto diff Lab Routine Staphylococcus aureus bacteremia with sepsis ([facility]) MRSA (methicillin resistant Staphylococcus aureus) 03/12/2025 8:20 AM EDT [facility] CBC W Auto Different ial panel - Blood CBC with auto diff Lab Routine Staphylococcus aureus bacteremia with sepsis ([facility]) MRSA (methicillin resistant Staphylococcus aureus) 03/20/2025 9:02 AM EDT [facility] CBC W Auto Different ial panel - Blood CBC with auto diff Lab Routine Staphylococcus aureus bacteremia with sepsis ([facility]) MRSA (methicillin resistant Staphylococcus aureus) 03/26/2025 9:44 AM EDT [employer] Work Phone: CBC W Auto Different ial panel - Blood CBC with auto diff Lab Routine Staphylococcus aureus bacteremia with sepsis ([facility]) MRSA (methicillin resistant Staphylococcus aureus) 04/03/2025 8:50 AM EDT [facility]eeper CK Total CK Total Lab Rou burt Staphylococcus aureus bacteremia with sepsis ([facility]) MRSA (methicillin resistant Staphylococcus aureus) 03/12/2025 8:20 AM EDT [employer] Work Phone: CK Total CK Total Lab Rou burt Staphylococcus aureus bacteremia with sepsis ([facility]) MRSA (methicillin resistant Staphylococcus aureus) 04/03/2025 8:50 AM EDT [employer] Work Phone: End: 11-25-2024 Comprehensive metabolic 2000 panel - Serum or Plasma Comprehensive metabolic panel Lab Routine 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 female breast, unspecified estrogen receptor status ([facility]) every 3 months for 50 Occurrences starting 11/25/2023 until 11/25/2024 [facility] Comment on above: every 3 months for 50 Occurrences starti ng 11/25/2023 until 11/25/2024 End: 01-15-2026 Comprehensive metabolic 2000 panel - Serum or Plasma Comprehensive metabolic panel Lab Routine 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 breast in female, estrogen receptor positive ([facility] 1 Occurrences starting 01/15/2025 until 01/15/2026 [facility] Comment on above: 1 Occurrences starting 01/15/2025 until 01/15/2026 End: 01-13-2023 CT CARDIAC W C STC MORP CARD ONLY [employer] Phone: Comment on above: 1 Occurrences starting 01/13/2023 until 01/13/2023 End: 12-07-2022 EKG 12 lead EKG 12 lead ECG Routine One Time for 1 Occurrences starting 12/07/2022 until 12/07/2022 [employer] Phone: Comment on above: One Time for 1 Occurrences starting 11/16 until 12/07/2022 Glucose [Mass/volume ] in Serum or Plasma POCT glucose Point of Care Testing Routine 4X Daily (AC & HS) until discontinued starting 12/07/2022 [employer] Phone: Comment on above: 4X Daily (AC & HS) until discontinued st arting 12/07/2022 End: 12-10-2022 Hemoglobin and Hematocrit Hemoglobin and Hematocrit Lab STAT Post Transfusion Post Transfusion Post Transfustion for 1 Occurrences starting 12/09/2022 until 12/10/2022 [employer] Work Phone: Comment on above: Post Transfusion Post Transfusion Post T ransfustion for 1 Occurrences starting 12/09/2022 until 12/10/2022 Oxygen therapy [Mini mum Data Set] Initiate Oxygen Therapy Protocol Respiratory Care Routine As Needed until discontinued starting 11/24/2022 [employer] Work Phone: Comment on above: As Needed until discontinued starting Oxygen therapy [Mini mum Data Set] Initiate Oxygen Therapy Protocol Respiratory Care Routine As Needed until discontinued starting 12/07/2022 [employer] Work Phone: Comment on above: As Needed until discontinued starting Oxygen therapy [Mini mum Data Set] Initiate Oxygen Therapy Protocol Respiratory Care Routine As Needed until discontinued starting 12/07/2022 [employer] Comment on above: As Needed until discontinued starting End: 03-09-2026 PICC Line Removal PICC Line Removal Procedures Routine Staphylococcus aureus bacteremia with sepsis ([facility]) 1 Occurrences starting 03/09/2025 until 03/09/2026 [employer] Work Phone: Comment on above: 1 Occurrences starting 03/09/2025 until 03/09/2026 End: 11-24-2022 POC CHEM8 INCLUDES CALC. ANION GAP POC CHEM8 INCLUDES CALC. ANION GAP Point of Care Testing STAT One Time for 1 Occurrences starting 11/24/2022 until 11/24/2022 [employer] Work Phone: Comment on above: One Time for 1 Occurrences starting 11/15 until 11/24/2022 End: 12-07-2022 POC CHEM8 INCLUDES CALC. ANION GAP POC CHEM8 INCLUDES CALC. ANION GAP Point of Care Testing STAT One Time for 1 Occurrences starting 12/07/2022 until 12/07/2022 [employer] Phone: Comment on above: One Time for 1 Occurrences starting 11/16 until 12/07/2022 End: 12-07-2022 PREPARE RBC (CROSSMATCH), 1 Units PREPARE RBC (CROSSMATCH), 1 Units Blood Bank STAT Once for 1 Occurrences starting 12/07/2022 until 12/07/2022 [employer] Phone: Comment on above: Once for 1 Occurrences starting 12/07/19 until 12/07/2022 End: 12-08-2022 PREPARE RBC (CROSSMATCH), 1 Units PREPARE RBC (CROSSMATCH), 1 Units Blood Bank Routine Once for 1 Occurrences starting 12/08/2022 until 12/08/2022 [employer] Phone: Comment on above: Once for 1 Occurrences starting 12/08/19 until 12/08/2022 End: 12-09-2022 PREPARE RBC (CROSSMATCH), 1 Units PREPARE RBC (CROSSMATCH), 1 Units Blood Bank Routine Once for 1 Occurrences starting 12/09/2022 until 12/09/2022 [employer] Phone: Comment on above: Once for 1 Occurrences starting 12/09/19 until 12/09/2022 End: 12-08-2022 PREVIOUS SPECIMEN [employer] Phone: Comment on above: Once for 1 Occurrences starting 12/08/19 until 12/08/2022 Immunizations Immunization Date Immunization Notes Care Provider [facility] 08-28-2024 Seasonal trivalent influenza vaccine, adjuvanted, preservative free Pam 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 Work Phone: [facility] 08-28-2024 Immunization, In Clinic,; Translations: [Drug or medicament (substance)] Pam 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 Work Phone: [facility] 08-28-2024 influenza virus vacc ine, unspecified formulation Kimberley Escudero [facility] 04-24-2024 tuberculin skin test ; unspecified formulation [facility] 04-12-2024 tuberculin skin test ; unspecified formulation [facility] 08-10-2023 Influenza Vaccine, Quadrivalent, Adjuvanted Rosario Strong RN [facility] 08-10-2023 influenza virus vacc ine, unspecified formulation Rosario Strong RN [facility] 04-13-2023 tuberculin skin test ; unspecified formulation [facility] 04-06-2023 tuberculin skin test ; unspecified formulation [facility] 08-06-2022 Influenza Vaccine, Quadrivalent, Adjuvanted Rosario Strong RN [facility] 08-27-2021 influenza, high dose seasonal, preservative-free Rosario Strong RN [facility] 05-28-2021 pneumococcal conjuga te vaccine, 13 valent Rosario Strong RN [facility] 02-04-2021 COVID-19, mRNA, LNP- S, PF, 30mcg/0.3mL Dose Rosario Strong RN [facility] 01-07-2021 COVID-19, mRNA, LNP- S, PF, 30mcg/0.3mL Dose Rosario Strong RN [facility] 11-25-2020 influenza, injectabl e, quadrivalent, preservative free Rosario Strong RN [facility] 08-30-2020 Influenza, High-dose , Quadrivalent Rosario Strong RN [facility] 05-16-2020 pneumococcal polysaccharide vaccine, 23 valent [facility] 05-10-2020 tuberculin skin test ; unspecified formulation [facility] 09-14-2019 influenza, injectabl e, quadrivalent, contains preservative Rosario Strong RN [facility] 09-11-2019 influenza, injectabl e, quadrivalent, preservative free Rosario Strong RN [facility] 08-31-2018 influenza, injectabl e, quadrivalent, preservative free Rosario Strong RN [facility] 09-07-2017 influenza, injectabl e, quadrivalent, preservative free Rosario Strong RN [facility] 07-10-2015 pneumococcal polysaccharide vaccine, 23 valent [facility] 06-29-2015 pneumococcal polysaccharide vaccine, 23 valent Kimberley Escudero [facility] Payers Date Payer Category Payer Self-pay 2024 Medicare (Managed Care) MITESH Jorge HOLLAND [id number] 2022 Medicare HMO [id number] [id number]. [id number] 2022 Medicare [id number] 1.2.840.055312.1.13.239.2. [id number] 2022 Medicaid [id number] 2022 Medicaid [id number]. 1.13.424.2. [id number] 2017 Unknown [id number] 2011 Medicare [id number]. 1.13.424.2. [id number] 2011 Medicare [id number] 1959 Medicaid [id number] 1946 Unknown [id number] 2.16.840.1.634581.3.579.2. 593 1946 Unknown [id number] 2.16.840.1.380837.3.579.2. 647 1946 Unknown [id number] 2.16.840.1.905691.3.579.2. 175 1946 Unknown [id number] 2.16.840.1.031895.3.579.2. 175 1946 Unknown [id number] 2.16.840.1.056484.3.579.2. 175 1946 Unknown [id number] 2.16.840.1.775981.3.579.2. 175 1946 Unknown [id number] 2.16.840.1.175120.3.579.2. 175 1946 Unknown [id number] 2.16.840.1.659911.3.579.2. 175 1946 Unknown [id number] 2.16.840.1.437065.3.579.2. 175 1946 Unknown [id number] 2.16.840.1.576820.3.579.2. 175 1946 Unknown [id number] 2.16.840.1.132079.3.579.2. 1347 1946 Unknown [id number] 2.16.840.1.810227.3.579.2. 1346 1946 Unknown [id number] 2.16.840.1.175799.3.579.2. 1285 1946 Unknown [id number] 2.16.840.1.223198.3.579.2. 1285 1946 Unknown [id number] 2.16.840.1.431216.3.579.2. 1285 1946 Unknown [id number] 2.16.840.1.256260.3.579.2. 1285 1946 Unknown [id number] 2.16.840.1.793969.3.579.2. 1285 1946 Unknown [id number] 2.16.840.1.488124.3.579.2. 1285 1946 Unknown [id number] 2.16.840.1.396758.3.579.2. 1286 1946 Unknown [id number] 2.16840.1.946706.3.579.2. 1285 1946 Unknown [id number] 2.16840.1.501391.3.579.2. 128 1946 Unknown [id number] 2.840.1.823247.3.579.2. 1285 1946 Unknown [id number] 2.840.1.470112.3.579.2. 1285 1946 Unknown [id number] 2.840.1.744740.3.579.2. 1285 1946 Unknown [id number] 2.0.1.768375.3.579.2. 1285 1946 Unknown [id number] 2.840.1.776584.3.579.2. 1285 1946 Unknown [id number] 2.0.1.464308.3.579.2. 1259 1946 Unknown [id number] 2.840.1.478812.3.579.2. 1259 1946 Unknown [id number] 2.0.1.223003.3.579.2. 1285 1946 Unknown [id number] 2.840.1.849324.3.579.2. 128 1946 Unknown [id number] 2.840.1.306789.3.579.2. 1285 1946 Unknown [id number] 2.840.1.244278.3.579.2. 1285 1946 Unknown [id number] 2.840.1.616713.3.579.2. 1285 1946 Unknown [id number] 2.16.840.1.883435.3.579.2. 1286 1946 Unknown [id number] 2.16.840.1.288566.3.579.2. 1286 1946 Unknown [id number] 2.16.840.1.787755.3.579.2. 1286 1946 Unknown [id number] 2.16.840.1.616570.3.579.2. 1286 1946 Unknown [id number] 2.16.840.1.675900.3.579.2. 128 1946 Unknown [id number] 2.16840.1.381356.3.579.2. 128 1946 Unknown [id number] 2.16840.1.764455.3.579.2. 128 1946 Unknown [id number] 2.16840.1.129742.3.579.2. 128 1946 Unknown [id number] 2.16840.1.097597.3.579.2. 128 1946 Unknown [id number] 2.16840.1.510152.3.579.2. 128 1946 Unknown [id number] 2.16840.1.098104.3.579.2. 128 1946 Unknown [id number] 2.16840.1.565974.3.579.2. 1286 1946 Unknown [id number] 2.16840.1.396058.3.579.2. 128 1946 Unknown [id number] 2.16840.1.621716.3.579.2. 128 1946 Unknown [id number] 2.16840.1.684203.3.579.2. 128 1946 Unknown [id number] 2.16.840.1.721551.3.579.2. 128 1946 Unknown [id number] 2.16.840.1.467268.3.579.2. 1285 1946 Unknown [id number] 2.16.840.1.137097.3.579.2. 1285 1946 Unknown [id number] 2.16840.1.629661.3.579.2. 1285 1946 Unknown [id number] 2.16840.1.630073.3.579.2. 1285 1946 Unknown [id number] 2.840.1.468797.3.579.2. 1285 1946 Unknown [id number] 2.840.1.495485.3.579.2. 1285 1946 Unknown [id number] 2.840.1.436500.3.579.2. 1285 1946 Unknown [id number] 2.840.1.569966.3.579.2. 1285 1946 Unknown [id number] 2.840.1.980940.3.579.2. 1285 1946 Unknown [id number] 2.840.1.834156.3.579.2. 1285 1946 Unknown [id number] 2.840.1.135189.3.579.2. 1285 1946 Unknown [id number] 2.840.1.067933.3.579.2. 1285 1946 Unknown [id number] 2.840.1.559435.3.579.2. 1285 1946 Unknown [id number] 2.16840.1.274556.3.579.2. 1285 1946 Unknown [id number] 2.16840.1.834878.3.579.2. 1286 1946 Unknown [id number] 2.16.840.1.569361.3.579.2. 1286 1946 Unknown [id number] 2.16.840.1.402205.3.579.2. 1286 1946 Unknown [id number] 2.16.840.1.450721.3.579.2. 1286 1946 Unknown [id number] 2.16.840.1.265820.3.579.2. 1286 1946 Unknown [id number] 2.16.840.1.929993.3.579.2. 1286 1946 Unknown [id number] 2..840.1.160943.3.579.2. 1286 1946 Unknown [id number] 2.840.1.283335.3.579.2. 1286 Unknown [id number] Unknown 1946 2.16840.1.325879.3.579.2. 531 Social History Date Type Detail Facility Start: 10-15-2014 End: 06-06-2025 Tobacco smoking status MSIS [facility] Start: 10-15-2014 End: 06-05-2025 Alcohol intake Current non-drinker of alcohol (finding) [facility] [employer] Work Phone: Start: 10-02-2014 Alcohol [facility] Work Phone: Start: 1945 Sex Assigned At Not on file [facility] [email or web address] Phone: Start: 11-14-2022 End: 12-07-2022 Exposure to SARS-CoV-2 (event) Not sure [facility] [employer] Start: 10-05-2022 End: 06-06-2025 Tobacco use and exposure Smokeless tobacco non-user [facility] Start: 11-09-2024 End: 06-06-2025 History of Social function [facility] Start: 11-09-2024 End: 06-06-2025 [facility] Utilities [facility] Has the electric, EntraTympanic s, oil, or water company threatened to shut off services in your home in past 12Mo No [facility] Do you belong to any clubs or organizations such as baptism groups, unions, fraternal or athletic groups, or school groups? Yes [facility] Are you now , , , , never or living with a partner? Never [facility] How often to you hav e a drink containing alcohol? Never [facility] How many standard drinks containing alcohol do you have on a typical day? Patient does not drink [facility] How hard is it for y ou to pay for the very basics like food, housing, medical care, and heating Somewhat hard [facility] Do you feel stress - tense, restless, nervous, or anxious, or unable to sleep at night because your mind is troubled all the time - these days [OSQ] To some extent [facility] Start: 06-20-2015 Sex Female (finding) [facility] Start: 03-21-2020 Gender identity Identifies as female gender (finding) [facility] Start: 10-05-2022 Sexual orientation Heterosexual (fin ding) [facility] Do you feel stress - tense, restless, nervous, or anxious, or unable to sleep at night because your mind is troubled all the time - these days [OSQ] Not at all [facility] Start: 01-18-2025 Tobacco use and exposure Non-Smoking Tobacco Use Details [facility] Start: 1945 Sex Assigned At Female [employer] [facility] Tobacco smoking stat us NHIS Unknown if ever smoked [facility] Start: 06-06-2025 Alcoholic beverage intake Ex-drinker (finding) [facility] NEGATED: Highlighted rowStart: 01-18-2025 Tobacco smoking status NHIS Unknown if ever smoked [facility] NEGATED: Highlighted rowStart: 01-18-2025 Alcohol intake Alcohol Use Details [facility] Medical Equipment Procedure Code Equipment Code Equipment Origin al Text Equipment Identifier Dates Valve Aor Evolut Fx 26mm - [id number] - [id number] Start: 08-17-2023 [id number], [id number], [id number] Start: 10-11-2020 End: 03-02-2024 Goals Date Patient Goal Desired Activity /State Personal health goal Comment on above: Formatting of this n ote might be different from the original. Evaluation of progress towards goal: Patient and daughter are agreeable to [facility] for RN and PT providing patient has insurance coverage. Personal health goal Comment on above: Formatting [...] on stairs Contact your local community or [facility] for information on exercise, fall prevention [...] She cooks, cleans and helps patient shower. Personal health goal Comment on above: Formatting of this n ote might be different from the original. Evaluation of progress towards goal: Patient plans for a safe discharge home with daughter support. Personal health goal Comment on above: Formatting of this n ote might be different from the original. Evaluation of progress towards goal: Unfortunately, prior to admission patient and daughter were unable to afford copay costs for IV antibiotics at home or copay costs for alf care. Patient and daughter will need to return home with a replaced PICC line and figure out transportation to and from [facility] infusion center. They state [facility] is not an option for weekend transport and during the week they get booked early. Personal health goal Comment on above: Formatting of this n ote might be different from the original. Evaluation of progress towards goal: Patient and daughter agree she will need skilled care as a result of the fracture she has. Mental Status Date Assessment Result Facility [facility] Clinical Notes 03-20-2021 to 06-18-2025 Telephone Encounter - Joelle Lopez - 06/18/2025 11:15 AM EDTTelephone Encounter - Joelleher Lopez - 06/18/2025 11:15 AM EDRONNA Donnelly - 06/06/2025 1:30 PM EDTAppointmentsPatient Instructions Note Date & Type Note Facility 06-18-2025 Telephone encounter Note Cuca Tejeda's daughter called and said that Cuca is taking OTC Tylenol but its not helping, wanted to know if we can call in something stronger for her. Please advise [facility] 06-18-2025 Miscellaneous Notes Cuca Tejeda's daughter called and said that Cuca is taking OTC Tylenol but its not helping, wanted to know if we can call in something stronger for her. Please advise documented in this encounter [facility] 06-06-2025 History of Present illness Narrative Images from the original note were not included. Orthopedic Office note: NAME: Cuca Goodwin : 1945 NEW PT WITH RT HIP PAIN - NO KNOWN INJURY -PT WENT TO [facility] 3DAYS IN A ROW 05/11, 05/12, 05/13; XRAY LUMBAR/CT LUMBAR/CT HIP XRAY PELVIS TODAY 06/06/25 XRAY LUMBAR SPINE 05/11/[address] [facility] [address] LUMBAR SPINE 05/12/[address] [facility] [address] RT HIP 05/14/25 [facility] PAIN LATERAL HIP- PT IS TYPICALLY IN CHAIR- PT RARELY WALKS BUT IF SHE DOES IT IS WITH A WALKER- INCREASE PAIN WHEN SHE TRIES TO WB- +GABAPENTIN- +LEG SWELLING Physical Exam General Appearance: Patient is seated in a position of comfort without any significant pain. Respiratory: No acute distress Musculoskeletal: Lateral hip: Mild soreness, no pain on direct palpation. Hip: No pain with internal and external rotation while seated, mild discomfort with resisted adduction, abduction tolerated without difficulty, flexion slightly weak (4/5), straight leg raise intact, no pain to distal thigh or knee. Bilateral ankles: Dorsiflexion and plantar flexion 5/5. Knee: Flexion present with gentle stressing of the hamstrings, mild increase in right hip discomfort. Bilateral trochanteric hip bursas: No pain with gentle palpation. Skin: Warm and dry, no rash. Neurological: Symmetric sensation on palpation without evidence of nerve palsy. Patient reports no current paresthesias. Orders Placed This Encounter Procedures XR pelvis 1 or 2 views Reason for exam:: PAIN Procedures Results - Imaging: - Hip x-ray with pelvis (05/30/2025): Stable displaced fracture of the lesser trochanter, unchanged from previous CT examination (05/13/2025) - X-rays: Similar presentation to previous imaging ICD-10-CM 1. Acute right hip pain M25.551 XR pelvis 1 or 2 views 2. Acute pain of both hips M25.551 M25.552 3. Closed avulsion fracture of right hip with routine healing, subsequent encounter S72.001D Assessment & Plan Avulsion fracture at the lesser trochanter The x-ray results from 05/30/2025 were discussed, showing stability of the avulsion fracture at the lesser trochanter, unchanged from the previous CT examination on 05/13/2025. The pathology of this injury was explained, likely avulsion in nature, as she does not recall a fall or trauma. Osteopenia and a prior pelvic fracture were noted. Her physical examination showed no signs or symptoms of infection at the joint. Treatment plan: Continued activity modifications with the use of a walker were recommended, avoiding forceful hip abduction or adduction until further healing occurs. Ambulate as tolerated but finds most relief with seated wheelchair use. Encouraged to use a walker at all times if ambulating with a 1-1 assist to prevent falls. Both the patient and her daughter at bedside agreed and had no further concerns or questions. Follow-up: The patient will follow up in 1 month and monitor with x-rays. Questions answered in laymen terms at the bedside. The diagnosis, home exercise plan and any ongoing restrictions/ recommendations reviewed. If unable to be reached in office, I recommend evaluation at nearest Emergency Room if any symptoms worsened or new symptoms develop for requiring urgent evaluation. Visit was preformed using [employer]-area relief pilot speech recognition. documented in this encounter [facility] 06-05-2025 History of Present illness Narrative IM PROGRESS NOTE Patient - Cuca Goodwin Age - 79 y.o. - 1945 ASSESSMENT & PLAN 1. Hospital discharge follow-up (Primary) -no changes made to medications. -doing well at home. -home physical therapy come into see her -denies any needs -denies need for refills. 2. Closed fracture of right hip, sequela -No complaints of pain or tenderness -not requiring pain medication. Subjective The following portions of the patient's history were reviewed and updated as appropriate: allergies, current medications, past family history, past medical history, past social history, past surgical history and problem list. Out of long term 9 days ago. Patient was found to have hairline right hip fracture and was deemed not surgical. Patient states her pain is well controlled and she is getting around her house fairly well. Her daughter does live with her at home and states she is doing well. She has not been needing anything for pain. She has an Ortho follow up tomorrow. Home PT to be starting soon. Patient denies any complaints today. She is getting around her house with her walker and wheelchair. Review of Systems Constitutional: Negative for activity change, appetite change, chills, diaphoresis, fatigue and fever. HENT: Negative for tinnitus and trouble swallowing. Respiratory: Negative for cough, chest tightness, shortness of breath and wheezing. Cardiovascular: Negative for chest pain, palpitations and leg swelling. Gastrointestinal: Negative for abdominal pain, diarrhea, nausea and vomiting. Genitourinary: Negative for difficulty urinating. Musculoskeletal: Positive for gait problem. Skin: Negative for rash. Neurological: Negative for dizziness, syncope, speech difficulty, weakness, light-headedness, numbness and headaches. Psychiatric/Behavioral: Negative for sleep disturbance. Exam BP 120/80 (BP Site: Left Arm, BP Postition: Sitting) Pulse 67 Temp 36.5 C (97.7 F) (Tympanic) Resp 18 Ht 165.1 cm (5' 5 ) Wt 83.6 kg (184 lb 3.2 oz) LMP (LMP Unknown) SpO2 95% BMI 30.65 kg/m Physical Exam Vitals and nursing note reviewed. Constitutional: General: She is not in acute distress. HENT: Mouth/Throat: Mouth: Mucous membranes are moist. Pharynx: Oropharynx is clear. Cardiovascular: Rate and Rhythm: Normal rate and regular rhythm. Pulses: Normal pulses. Pulmonary: Effort: Pulmonary effort is normal. Breath sounds: Normal breath sounds. Abdominal: Tenderness: There is no abdominal tenderness. Musculoskeletal: General: No tenderness. Right lower leg: No edema. Left lower leg: No edema. Skin: General: Skin is warm and dry. Capillary Refill: Capillary refill takes less than 2 seconds. Neurological: General: No focal deficit present. Mental Status: She is alert and oriented to person, place, and time. Meds Current Outpatient Medications: acetaminophen (TYLENOL) 500 mg tablet, Take 2 tablets (1,000 mg total) by mouth every 6 (six) hours as needed for pain., Disp: , Rfl: cyanocobalamin 1000 MCG tablet, Take 1 tablet (1,000 mcg total) by mouth in the morning., Disp: , Rfl: ferrous sulfate 325 (65 FE) MG tablet, Take 1 tablet (325 mg total) by mouth daily with breakfast., Disp: , Rfl: furosemide (LASIX) 20 mg tablet, Take 1 tablet (20 mg total) by mouth daily., Disp: , Rfl: gabapentin (NEURONTIN) 300 mg capsule, Take 2 capsules (600 mg total) by mouth nightly., Disp: , Rfl: gabapentin (NEURONTIN) 300 mg capsule, Take 1 capsule (300 mg total) by mouth in the morning., Disp: , Rfl: insulin detemir U-100 (LEVEMIR) 100 unit/mL (3 mL) insulin pen, Inject 15 Units under the skin nightly. (Patient not taking: Reported on 05/13/2025), Disp: 15 mL, Rfl: 12 insulin lispro (HumaLOG) 100 unit/mL insulin pen, Inject 2-10 Units under the skin 4 (four) times a day with meals and nightly. 151-200 mg/dL, give 2 units. 201-250 mg/dL, give 4 units. 251-300 mg/dL, give 6 units. 301-350 mg/dL, give 8 units 351-400 mg/dL, give 10 units, Disp: 15 mL, Rfl: 12 letrozole (FEMARA) 2.5 mg chemo tablet, Take 1 tablet by mouth daily, Disp: 90 tablet, Rfl: 3 lidocaine (SALONPAS) 4 %, Place 1 patch on the skin daily., Disp: 30 patch, Rfl: 0 mirtazapine (REMERON) 7.5 mg tablet, Take 1 tablet (7.5 mg total) by mouth nightly., Disp: 90 tablet, Rfl: 1 nystatin (MYCOSTATIN) powder, Apply 1 Application topically in the morning and 1 Application at noon and 1 Application in the evening and 1 Application before bedtime., Disp: 60 g, Rfl: 1 sertraline (ZOLOFT) 100 mg tablet, Take 1 tablet (100 mg total) by mouth in the morning., Disp: , Rfl: traZODone (DESYREL) 100 mg tablet, TAKE 1 TABLET BY MOUTH EVERY DAY AT NIGHT (Patient taking differently: Take 1 tablet (100 mg total) by mouth nightly. TAKE 1 TABLET BY MOUTH EVERY DAY AT NIGHT), Disp: 90 tablet, Rfl: 1 Lab Results Admission on 05/13/2025, Discharged on 05/15/2025 Component Date Value Ref Range Status WBC 05/13/2025 9.0 4 - 11 x10E9/L Final RBC Count 05/13/2025 4.27 3.8 - 5.2 X10E12/L Final Hemoglobin 05/13/2025 11.8 11.7 - 15.5 g/dL Final Hematocrit 05/13/2025 36.0 35 - 47 % Final MCV 05/13/2025 84 80 - 100 fL Final MCH 05/13/2025 27.5 27 - 34 pg Final MCHC 05/13/2025 32.7 32 - 36 g/dL Final RDW 05/13/2025 15.8 (H) 11.5 - 15 % Final Platelet Count 05/13/2025 266 150 - 450 X10E9/L Final MPV 05/13/2025 8.4 7 - 12 fL Final Neutrophils % 05/13/2025 68.8 % Final Lymphocytes % 05/13/2025 18.7 % Final Monocytes % 05/13/2025 10.3 % Final Eosinophils % 05/13/2025 1.6 % Final Basophils % 05/13/2025 0.6 % Final Neutrophils Absolute (A) 05/13/2025 6.2 1.5 - 6.6 10*3/uL Final Lymphocytes Absolute 05/13/2025 1.7 1.0 - 3.5 10*3/uL Final Monocytes Absolute 05/13/2025 0.9 0.0 - 0.9 10*3/uL Final Eosinophils Absolute 05/13/2025 0.1 0.0 - 0.4 10*3/uL Final Basophils Absolute 05/13/2025 0.1 0.0 - 0.2 10*3/uL Final Differential Type 05/13/2025 AUTOMATED DIFFERENTIAL Final SODIUM 05/13/2025 134 134 - 146 mmol/L Final POTASSIUM 05/13/2025 4.7 3.5 - 5.0 mmol/L Final CHLORIDE 05/13/2025 101 98 - 109 mmol/L Final CARBON DIOXIDE 05/13/2025 23 22 - 32 mmol/L Final ANION GAP 05/13/2025 10 5 - 15 mmol/L Final BLOOD UREA NITROGEN 05/13/2025 31 (H) 5 - 27 mg/dL Final CREATININE 05/13/2025 1.41 (H) 0.40 - 1.00 mg/dL Final GLUCOSE 05/13/2025 300 (H) 65 - 99 mg/dL Final CALCIUM 05/13/2025 9.5 8.5 - 10.5 mg/dL Final TOTAL PROTEIN 05/13/2025 8.2 (H) 6.0 - 8.0 g/dL Final ALBUMIN 05/13/2025 3.6 3.2 - 5.3 g/dL Final ALKALINE PHOSPHATASE 05/13/2025 160 (H) 39 - 130 U/L Final AST 05/13/2025 31 <=41 U/L Final ALT 05/13/2025 18 <=31 U/L Final BILIRUBIN,TOTAL 05/13/2025 0.5 0.3 - 1.2 mg/dL Final EGFR Non-Race Dependent 05/13/2025 38 (L) >=60 ml/min/1.73sq.m Final BNP 05/13/2025 602 (H) <=100 pg/mL Final TROPONIN I, HIGH SENSITIVITY 05/13/2025 35 (H) <16 ng/L Final CULTURE RESULTS 05/13/2025 NO GROWTH 5 DAYS Final CULTURE RESULTS 05/13/2025 NO GROWTH 5 DAYS Final LACTATE W/REFLEX 05/13/2025 1.5 0.4 - 2.0 mmol/L Final TROPONIN I, HIGH SENSITIVITY 05/13/2025 26 (H) <16 ng/L Final Extra Tube 05/13/2025 Auto Resulted Final Sample type 05/13/2025 ARTERIAL Final pH, Arterial 05/13/2025 7.349 (L) 7.350 - 7.450 Final pCO2, Arterial 05/13/2025 41.4 35.0 - 45.0 mmHg Final PO2, Arterial 05/13/2025 67 (L) 80 - 100 mmHg Final Base, Deficit 05/13/2025 -3.0 (L) 0.0 - 2.0 mmol/L Final HCO3, Arterial 05/13/2025 22.8 22.0 - 26.0 mmol/L Final %O2 Saturation, Arterial 05/13/2025 92.0 >90.0 % Final Tato's test 05/13/2025 N/A Final SPO2 05/13/2025 67 % Final Sample site 05/13/2025 L Rad Final Source Of Oxygen 05/13/2025 NC Final C REACTIVE PROTEIN 05/13/2025 6.1 (H) <=0.7 mg/dL Final Bedside Glucose (POC) 05/13/2025 384 (H) 65 - 99 mg/dL Final PROCALCITONIN 05/13/2025 0.05 (H) <0.05 ng/mL Final APTT 05/13/2025 30 26 - 37 sec Final Hemoglobin 05/13/2025 11.5 (L) 11.7 - 15.5 g/dL Final Platelet Count 05/13/2025 214 150 - 450 X10E9/L Final MPV 05/13/2025 8.3 7 - 12 fL Final Extra Tube 05/13/2025 Auto Resulted Final Bedside Glucose (POC) 05/13/2025 256 (H) 65 - 99 mg/dL Final SODIUM 05/14/2025 139 134 - 146 mmol/L Final POTASSIUM 05/14/2025 4.4 3.5 - 5.0 mmol/L Final CHLORIDE 05/14/2025 108 98 - 109 mmol/L Final CARBON DIOXIDE 05/14/2025 22 22 - 32 mmol/L Final ANION GAP 05/14/2025 9 5 - 15 mmol/L Final BLOOD UREA NITROGEN 05/14/2025 27 5 - 27 mg/dL Final CREATININE 05/14/2025 1.30 (H) 0.40 - 1.00 mg/dL Final GLUCOSE 05/14/2025 148 (H) 65 - 99 mg/dL Final CALCIUM 05/14/2025 9.0 8.5 - 10.5 mg/dL Final TOTAL PROTEIN 05/14/2025 6.6 6.0 - 8.0 g/dL Final ALBUMIN 05/14/2025 2.9 (L) 3.2 - 5.3 g/dL Final ALKALINE PHOSPHATASE 05/14/2025 128 39 - 130 U/L Final AST 05/14/2025 23 <=41 U/L Final ALT 05/14/2025 14 <=31 U/L Final BILIRUBIN,TOTAL 05/14/2025 0.6 0.3 - 1.2 mg/dL Final EGFR Non-Race Dependent 05/14/2025 42 (L) >=60 ml/min/1.73sq.m Final MAGNESIUM 05/14/2025 1.6 (L) 1.8 - 2.6 mg/dL Final WBC 05/14/2025 7.6 4 - 11 x10E9/L Final RBC Count 05/14/2025 3.65 (L) 3.8 - 5.2 X10E12/L Final Hemoglobin 05/14/2025 10.3 (L) 11.7 - 15.5 g/dL Final Hematocrit 05/14/2025 30.6 (L) 35 - 47 % Final MCV 05/14/2025 84 80 - 100 fL Final MCH 05/14/2025 28.1 27 - 34 pg Final MCHC 05/14/2025 33.5 32 - 36 g/dL Final RDW 05/14/2025 15.5 (H) 11.5 - 15 % Final Platelet Count 05/14/2025 166 150 - 450 X10E9/L Final MPV 05/14/2025 8.7 7 - 12 fL Final Neutrophils % 05/14/2025 55.9 % Final Lymphocytes % 05/14/2025 23.9 % Final Monocytes % 05/14/2025 12.9 % Final Eosinophils % 05/14/2025 6.6 % Final Basophils % 05/14/2025 0.7 % Final Neutrophils Absolute (A) 05/14/2025 4.2 1.5 - 6.6 10*3/uL Final Lymphocytes Absolute 05/14/2025 1.8 1.0 - 3.5 10*3/uL Final Monocytes Absolute 05/14/2025 1.0 (H) 0.0 - 0.9 10*3/uL Final Eosinophils Absolute 05/14/2025 0.5 (H) 0.0 - 0.4 10*3/uL Final Basophils Absolute 05/14/2025 0.1 0.0 - 0.2 10*3/uL Final Differential Type 05/14/2025 AUTOMATED DIFFERENTIAL Final Bedside Glucose (POC) 05/14/2025 223 (H) 65 - 99 mg/dL Final MAGNESIUM 05/14/2025 2.1 1.8 - 2.6 mg/dL Final Bedside Glucose (POC) 05/14/2025 308 (H) 65 - 99 mg/dL Final Bedside Glucose (POC) 05/14/2025 286 (H) 65 - 99 mg/dL Final SODIUM 05/15/2025 136 134 - 146 mmol/L Final POTASSIUM 05/15/2025 4.6 3.5 - 5.0 mmol/L Final CHLORIDE 05/15/2025 102 98 - 109 mmol/L Final CARBON DIOXIDE 05/15/2025 26 22 - 32 mmol/L Final ANION GAP 05/15/2025 8 5 - 15 mmol/L Final BLOOD UREA NITROGEN 05/15/2025 22 5 - 27 mg/dL Final CREATININE 05/15/2025 1.20 (H) 0.40 - 1.00 mg/dL Final GLUCOSE 05/15/2025 152 (H) 65 - 99 mg/dL Final CALCIUM 05/15/2025 9.4 8.5 - 10.5 mg/dL Final TOTAL PROTEIN 05/15/2025 7.0 6.0 - 8.0 g/dL Final ALBUMIN 05/15/2025 2.9 (L) 3.2 - 5.3 g/dL Final ALKALINE PHOSPHATASE 05/15/2025 125 39 - 130 U/L Final AST 05/15/2025 17 <=41 U/L Final ALT 05/15/2025 14 <=31 U/L Final BILIRUBIN,TOTAL 05/15/2025 0.6 0.3 - 1.2 mg/dL Final EGFR Non-Race Dependent 05/15/2025 46 (L) >=60 ml/min/1.73sq.m Final MAGNESIUM 05/15/2025 2.0 1.8 - 2.6 mg/dL Final WBC 05/15/2025 8.6 4 - 11 x10E9/L Final RBC Count 05/15/2025 3.62 (L) 3.8 - 5.2 X10E12/L Final Hemoglobin 05/15/2025 10.1 (L) 11.7 - 15.5 g/dL Final Hematocrit 05/15/2025 30.0 (L) 35 - 47 % Final MCV 05/15/2025 83 80 - 100 fL Final MCH 05/15/2025 27.8 27 - 34 pg Final MCHC 05/15/2025 33.5 32 - 36 g/dL Final RDW 05/15/2025 15.5 (H) 11.5 - 15 % Final Platelet Count 05/15/2025 196 150 - 450 X10E9/L Final MPV 05/15/2025 8.7 7 - 12 fL Final Neutrophils % 05/15/2025 66.3 % Final Lymphocytes % 05/15/2025 19.9 % Final Monocytes % 05/15/2025 9.9 % Final Eosinophils % 05/15/2025 3.4 % Final Basophils % 05/15/2025 0.5 % Final Neutrophils Absolute (A) 05/15/2025 5.7 1.5 - 6.6 10*3/uL Final Lymphocytes Absolute 05/15/2025 1.7 1.0 - 3.5 10*3/uL Final Monocytes Absolute 05/15/2025 0.8 0.0 - 0.9 10*3/uL Final Eosinophils Absolute 05/15/2025 0.3 0.0 - 0.4 10*3/uL Final Basophils Absolute 05/15/2025 0.0 0.0 - 0.2 10*3/uL Final Differential Type 05/15/2025 AUTOMATED DIFFERENTIAL Final Extra Tube 05/15/2025 Auto Resulted Final Bedside Glucose (POC) 05/15/2025 320 (H) 65 - 99 mg/dL Final Admission on 05/12/2025, Discharged on 05/12/2025 Component Date Value Ref Range Status WBC 05/12/2025 6.8 4 - 11 x10E9/L Final RBC Count 05/12/2025 3.86 3.8 - 5.2 X10E12/L Final Hemoglobin 05/12/2025 10.6 (L) 11.7 - 15.5 g/dL Final Hematocrit 05/12/2025 32.5 (L) 35 - 47 % Final MCV 05/12/2025 84 80 - 100 fL Final MCH 05/12/2025 27.4 27 - 34 pg Final MCHC 05/12/2025 32.5 32 - 36 g/dL Final RDW 05/12/2025 15.8 (H) 11.5 - 15 % Final Platelet Count 05/12/2025 263 150 - 450 X10E9/L Final MPV 05/12/2025 8.2 7 - 12 fL Final Neutrophils % 05/12/2025 65.4 % Final Lymphocytes % 05/12/2025 20.3 % Final Monocytes % 05/12/2025 10.4 % Final Eosinophils % 05/12/2025 3.5 % Final Basophils % 05/12/2025 0.4 % Final Neutrophils Absolute (A) 05/12/2025 4.5 1.5 - 6.6 10*3/uL Final Lymphocytes Absolute 05/12/2025 1.4 1.0 - 3.5 10*3/uL Final Monocytes Absolute 05/12/2025 0.7 0.0 - 0.9 10*3/uL Final Eosinophils Absolute 05/12/2025 0.2 0.0 - 0.4 10*3/uL Final Basophils Absolute 05/12/2025 0.0 0.0 - 0.2 10*3/uL Final Differential Type 05/12/2025 AUTOMATED DIFFERENTIAL Final SODIUM 05/12/2025 134 134 - 146 mmol/L Final POTASSIUM 05/12/2025 4.1 3.5 - 5.0 mmol/L Final CHLORIDE 05/12/2025 100 98 - 109 mmol/L Final CARBON DIOXIDE 05/12/2025 24 22 - 32 mmol/L Final ANION GAP 05/12/2025 10 5 - 15 mmol/L Final BLOOD UREA NITROGEN 05/12/2025 25 5 - 27 mg/dL Final CREATININE 05/12/2025 1.37 (H) 0.40 - 1.00 mg/dL Final GLUCOSE 05/12/2025 348 (H) 65 - 99 mg/dL Final CALCIUM 05/12/2025 8.9 8.5 - 10.5 mg/dL Final TOTAL PROTEIN 05/12/2025 7.6 6.0 - 8.0 g/dL Final ALBUMIN 05/12/2025 3.3 3.2 - 5.3 g/dL Final ALKALINE PHOSPHATASE 05/12/2025 119 39 - 130 U/L Final AST 05/12/2025 21 <=41 U/L Final ALT 05/12/2025 16 <=31 U/L Final BILIRUBIN,TOTAL 05/12/2025 0.4 0.3 - 1.2 mg/dL Final EGFR Non-Race Dependent 05/12/2025 40 (L) >=60 ml/min/1.73sq.m Final Extra Tube 05/12/2025 Auto Resulted Final Extra Tube 05/12/2025 Auto Resulted Final Extra Tube 05/12/2025 Auto Resulted Final CULTURE RESULTS 05/12/2025 NO GROWTH AT <1000 CFU/mL Final Extra Tube 05/12/2025 Auto Resulted Final POC Urine Specific Manley 05/12/2025 1.015 1.010, 1.015, 1.020, 1.025 Final POC Urine Leukocyte Esterase 05/12/2025 Negative Negative Final POC Urine Nitrite 05/12/2025 Negative Negative Final POC Urine pH 05/12/2025 5.5 5.0, 6.0, 6.5, 7.0, 7.5, 8.0, 8.5, 5.5 Final POC Urine Protein 05/12/2025 Negative Negative Final POC Urine Glucose 05/12/2025 500 mg/dL (A) Negative Final POC Urine Ketones 05/12/2025 Negative Negative Final POC Urine Urobilinogen 05/12/2025 0.2 E.U./dL Final POC Urine Bilirubin 05/12/2025 Negative Negative Final POC Urine Blood/HGB 05/12/2025 Negative Negative Final Other Testing X-ray chest 1 view Result Date: 05/13/2025 Procedure: Chest x-ray performed Number of views:1 History:Shortness of breath Comparison:04/28/2025 Findings: The heart and lungs show no acute findings, and the mediastinum and stanley are grossly negative . Tube overlying right chest stable. Impression: 1. No acute change. Finalized by Berry Chavez MD on 05/13/2025 11:01 AM X-ray chest 1 view Result Date: 04/28/2025 XR CHEST 1 VW Clinical Information: ams Comparison: 03/16/2025. IMPRESSION: * Tubing overlying the right chest. No acute cardiopulmonary disease. Stable heart size. Old rib deformities. Prosthetic cardiac valve. Finalized by Joie Ellsworth MD on 04/28/2025 12:46 PM X-ray chest 1 view Result Date: 03/16/2025 Single view chest History:hypoxia Difficulty breathing, shortness of breath Comparison: 02/23/2025 Findings: Single portable view of the chest. Stable cardiomediastinal silhouette. No new focal opacity, effusion or pneumothorax. Impression: No evidence of acute cardiac pulmonary process. Finalized by Sarai Acevedo MD on 03/16/2025 10:23 AM Return in about 3 months (around 09/05/2025) for DM. EN Diaz [facility] Office: [phone] This note is dictated with the use of M*Modal. Please note that this dictation was completed with computer voice recognition software. Quite often unanticipated grammatical, syntax, homophones, and other interpretive errors are inadvertently transcribed by the computer software. Please disregard these errors. Please excuse any errors that have escaped final proofreading. 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 History of present illness: Follow-up for normal pressure hydrocephalus. She was recently hospitalized with hypoxia and altered mental status. Found to have pneumonia as well as a right hip fracture. Fracture did not require surgical intervention. Notes that this spring, she had MRSA bacteremia. She is currently in a [facility] in [facility] rehabilitation. Denies headaches, numbness, tingling, vision change. Reports difficulty with memory. She does report low back pain, particularly at bedtime. Also reports right lateral thigh pain, which started after her hip fracture. Daughter Ileana notes that she uses a wheelchair at home due to her back symptoms. Ileana states she is aware that there are some discs protruding and she is wondering if surgery might help the symptoms. Does report urinary incontinence, though denies bowel incontinence. Review of systems: As in HPI. Past Medical History: Diagnosis Date Aortic stenosis Asthma Atrial fibrillation (CMS/HCC) Cancer (CMS/HCC) 02/2023 right breast, metastatic Cataract CKD (chronic kidney disease) Coronary artery disease Depression Diabetes mellitus (CMS/HCC) Dyslipidemia Femur fracture, right (CMS/HCC) 04/2025 GERD (gastroesophageal reflux disease) Heart failure (CMS/HCC) Hypertension Ischemic stroke (CMS/HCC) 02/2024 seen at [facility] NPH (normal pressure hydrocephalus) (CMS/HCC) PVD (peripheral vascular disease) Sleep apnea Past Surgical History: Procedure Laterality Date AORTIC VALVE REPLACEMENT TAVR BREAST BIOPSY Right 03/01/2023 CARDIAC VALVE REPLACEMENT 2022 CATARACT EXTRACTION SECTION, CLASSIC CORONARY ANGIOPLASTY WITH [...] Relation Name Age of Onset Diabetes Mother Kacey Goodwin Hypertension Father Radha Goodwin Coronary artery disease Father Radha Goodwin OBJECTIVE: Medications: acetaminophen amLODIPine amoxicillin aspirin atorvastatin cefuroxime cholecalciferol (vitamin D3) clopidogrel Dexcom G6 Needleworker [facility] Dexcom G6 Transmitter device Dexcom G7 Sensor device doxycycline ferrous sulfate FreeStyle Kartik 14 Day Nabb [facility] FreeStyle Kartik 14 Day Sensor kit furosemide gabapentin hydroCHLOROthiazide insulin aspart insulin lispro lancets [facility] Lantus Solostar U-100 Insulin insulin pen letrozole Levemir FlexPen insulin pen lisinopril magnesium oxide melatonin capsule metoprolol tartrate mirtazapine miscellaneous medical supply [facility] mupirocin nystatin ONETOUCH ULTRA BLUE TEST STRIP [facility] OneTouch Ultra Test strip oxyBUTYnin pantoprazole pen needle, diabetic needle sertraline SITagliptin phosphate traMADol traZODone Current Outpatient Medications: acetaminophen (Tylenol) 500 mg tablet, Take 500 mg by mouth every 6 (six) hours if needed., Disp: , Rfl: doxycycline (Vibra-Tabs) 100 mg tablet, Take 100 mg by mouth two times daily. Take with a full glass of water and do not lie down for at least 30 minutes after., Disp: , Rfl: ferrous sulfate 325 (65 Fe) MG EC tablet, Take 325 mg by mouth., Disp: , Rfl: furosemide (Lasix) 20 mg tablet, Take 20 mg by mouth in the morning., Disp: , Rfl: gabapentin (Neurontin) 300 mg capsule, TAKE 1 CAPSULE (300 MG TOTAL) BY MOUTH IN THE MORNING AND BEFORE BEDTIME (Patient taking differently: Take 600 mg by mouth at bedtime. 300 during day), Disp: , Rfl: insulin detemir (Levemir FlexPen) 100 unit/mL (3 mL) pen, Levemir FlexTouch U-100 Insulin 100 unit/mL (3 mL) subcutaneous pen INJECT 25 UNITS AT BEDTIME, Disp: , Rfl: insulin lispro (HumaLOG) 100 unit/mL injection, Humalog KwikPen (U-100) Insulin 100 unit/mL subcutaneous INJECT 4-5-6 UNITS TO MEAL SIZE PLUS ISS#2 ( EXPEXT DAILY DOSE 20 UNITS), Disp: , Rfl: letrozole (Femara) 2.5 mg chemo tablet, Take by mouth in the morning Take with or without food., Disp: , Rfl: mirtazapine (Remeron) 7.5 mg tablet, , Disp: , Rfl: nystatin (Mycostatin) 100,000 unit/gram powder, Apply 1 Application topically 4 times a day., Disp: , Rfl: sertraline (Zoloft) 100 mg tablet, Take 1.5 tablets by mouth in the morning., Disp: , Rfl: traZODone (Desyrel) 100 mg tablet, TAKE 1 TABLET BY MOUTH EVERY DAY AT NIGHT, Disp: , Rfl: amLODIPine (Norvasc) 5 mg tablet, amlodipine 5 mg tablet TAKE 1 TABLET (5 MG TOTAL) BY MOUTH IN THE MORNING., Disp: , Rfl: amoxicillin (Amoxil) 500 mg tablet, TAKE 4 (more content not included)... [facility] 05-15-2025 Plan of care note Problem: Pain Goal: Patient goal is pain score less than 4, able to rest, and participant in treatment plan as appropriate Description: INTERVENTIONS: 1. Encourage patient or legal sales account representative to report early pain and ask for pain medicine when needed 2. Assess pain using appropriate pain scale and include the scale used when documenting 3. Administer analgesics based on type and severity of pain and evaluate response within appropriate time frame 4. Implement non-pharmacological measures as appropriate and evaluate response 5. Consider cultural and social influences on pain and pain management 6. Notify LIP if interventions ineffective or patient reports new pain 7. Monitor vital signs including pulse ox, end-tidal CO2 based on pain intervention 8. Reassess pain per policy 9. Teach patient or legal sales account representative interventions for comforting 05/15/2025 1511 by GABBY Camarena Outcome: Adequate for Discharge 05/15/2025 1349 by Migue RN Outcome: Progressing Note: Evaluation of progress towards goal: Pt able to report pain according to 0/10 pain scale. Medicating patient for pain per orders. Problem: Safety Goal: Patient will be injury free during hospitalization Description: INTERVENTIONS: 1. Assess patient's risk for falls and implement fall prevention plan of care per policy 2. Provide and maintain a safe environment 3. Proper use of double Identifiers 4. Medication administration using the 5 rights 5. Hand hygiene 6. Specimens are labeled at the bedside 7. Instruct patient/ patient sales account representative about use of safety devices 8. Include patient/ patient sales account representative in decisions related to safety 05/15/2025 1511 by GABBY Camarena Outcome: Adequate for Discharge 05/15/2025 1349 by GABBY Camarena Outcome: Progressing Note: Evaluation of progress towards goal: Safety measures initiated/maintained. Pt remains safe from harm/injury/falls Problem: Infection Goal: Absence of infection during hospitalization Description: INTERVENTIONS 1. Assess and monitor for signs and symptoms of infection. 2. Monitor lab/diagnostic results. 3. Monitor all insertion sites i.e., indwelling lines, tubes and drains. 4. Monitor endotracheal (as able) and nasal secretions for changes in amount and color. 5. Administer medications as ordered. 6. Instruct and encourage patient and family to use good hand hygiene technique. 7. Identify and instruct patient/patient sales account representative in use of appropriate isolation precautions for identified infection/symptoms. 8. Provide and discuss with patient/patient sales account representative on educational MDRO sheet. 9. Encourage and monitor nutritional status daily and consult senior linux systems administrator if indicated. 10. Implement neutropenic guidelines as needed. 05/15/2025 1511 by GABBY Camarena Outcome: Adequate for Discharge 05/15/2025 1349 by GABBY Camarena Outcome: Progressing Note: Evaluation of progress towards goal: Pt afebrile at this time, continue to monitor for signs infection Problem: Knowledge Deficit Goal: Patient/patient sales account representative demonstrates understanding of disease process, treatment plan, medications, and discharge instructions Description: INTERVENTIONS 1. Complete learning assessment and assess knowledge base 2. Provide teaching at level of understanding 3. Provide teaching via preferred learning method(s) 05/15/2025 1511 by GABBY Camarena Outcome: Adequate for Discharge 05/15/2025 1349 by GABBY Camarena Outcome: Progressing Note: Evaluation of progress towards goal: Evaluate, educate, reinforce learning needs and gaps t/o shift. Problem: Discharge Planning Goal: Discharge to post-acute care, other facility, or home with appropriate resources Description: Patient's goal is: INTERVENTIONS 1. Conduct assessment to determine patient/family and health care team treatment goals, and need for post-acute services based on payer coverage, community resources, and patient preferences, and barriers to discharge 2. Coordinate with Social work, Care Navigation, and Utilization Review to arrange appropriate level of services according to patient's needs based on patient preference and payer coverage in collaboration with the physician and health care team 3. Address psychosocial, clinical, and financial barriers to discharge as identified in assessment in conjunction with the patient/family and health care team 4. Consult appropriate ancillary services (i.e.. PT/OT/ST, etc) as needed 5. Communicate with and update the patient/family, physician, and health care team regarding progress on the discharge plan 6. Identify discharge learning needs (meds, wound care, etc). 7. Arrange for needed discharge transportation as appropriate 05/15/20251510 by Migue RN Outcome: Adequate for Discharge 05/15/2025 1349 by Migue RN Outcome: Progressing Note: Evaluation of progress towards goal: Continue to monitor t/o shift to assess for discharge needs. Problem: Readmission Risk Reduction Goal: Readmission Risk Assessment Description: Utilize readmission risk score in the development of discharge plan INTERVENTIONS: 1. Discuss patient's risk of readmission at multidisciplinary discharge transition rounds. 2. Comprehensive assessment of patient's risk of readmission (functional, psychosocial, cognitive). 3. Collaborate with patient / caregiver to identify needs. 4. Handoff to next level of care provider (respiratory care technician, PCP, home care). 5. Complete follow up phone call within 72 hours. 05/15/20251510 by Migue RN Outcome: Adequate for Discharge 05/15/2025 134 by Migue RN Outcome: Progressing Note: Evaluation of progress towards goal: n/a Goal: Discharge Medication Plan Description: Develop a plan to ensure that medications are obtained at the time of discharge INTERVENTIONS: 1. Utilize outpatient pharmacy to deliver medications to patient prior to discharge, where available. 2. Ensure that prescriptions are sent to the patient's pharmacy of choice prior to patient leaving the hospital. If possible, confirm authorizations and co-pays and communicate to patient. 3. During discharge follow-up phone call, confirm that prescriptions have been filled. 05/15/20251510 by Migue RN Outcome: Adequate for Discharge 05/15/[id number] by GABBY Camarena Outcome: Progressing Note: Evaluation of progress towards goal: n/a Goal: Follow-Up Appointments Description: Schedule patient-centric follow-up appointments prior to discharge INTERVENTIONS: 1. Identify recommended / appropriate timeframes for follow-up. 2. Discuss transportation needs and scheduling preferences with patient. 3. Verify that all follow-up appointments are scheduled prior to discharge. 05/15/2025 151 by S., RN Outcome: Adequate for Discharge 05/15/20251348 by GABBY Camarena Outcome: Progressing Note: Evaluation of progress towards goal: Pt's on telemetry, strip read at beginning of shift and when changes occur and monitored throughout shift. Pt free of any dysrhythmias. VS and focused assessment done every 4 hours. Goal: Discharge Medication Reconciliation Description: Review discharge medication reconciliation for accuracy INTERVENTIONS: 1. Include last dose date / time on the discharge medication list. 2. Utilize available resources to identify and address issues. 3. Consider use of a Discharge Time-Out or Discharge Final Check. 4. Refer to homecare, as appropriate, for home medication review. 05/15/20251510 by GABBY Camarena Outcome: Adequate for Discharge 05/15/20251348 by Migue RN Outcome: Progressing Note: Evaluation of progress towards goal: Pt's on telemetry, strip read at beginning of shift and when changes occur and monitored throughout shift. Pt free of any dysrhythmias. VS and focused assessment done every 4 hours. Goal: Discharge Instructions Description: Provide accurate and complete discharge instructions, taking into account health literacy of the patient INTERVENTIONS: 1. Assess patient's learning needs including health literacy. 2. Provide disease-specific education as appropriate. 3. Consider use of teach-back to verify patient / caregiver understanding. 4. Verify understanding of discharge instructions. 5. Consider use of a Discharge Time-Out or Discharge Final-Check. 05/15/20251510 by GABBY Camarena Outcome: Adequate for Discharge 05/15/20251348 by GABBY Camarena Outcome: Progressing Note: Evaluation of progress towards goal: n/a Problem: Inadequate Airway Clearance Goal: Patient will maintain patent airway Description: INTERVENTIONS 1. Assess and monitor breath sounds, cough and sputum (if present) 2. Monitor respiratory rate and oxygen saturation 3. Collaborate with respiratory therapy to administer medication, oxygen, and suitable airway clearance techniques as ordered 4. Position patient for maximum ventilatory efficiency; elevate head of bed at least 30 degrees if appropriate 5. Provide adequate fluid intake to liquify secretions if appropriate 6. Suction secretions as indicated to maintain patent airway 7. Instruct patient to turn, cough, and deep breathe; encourage incentive spirometer if indicated 05/15/20251510 by GABBY Camarena Outcome: Adequate for Discharge 05/15/20251348 by GABBY Camarena Outcome: Progressing Note: Evaluation of progress towards goal: Pt is able to maintain a patent airway and breath sounds are clear. Continue to monitor. Problem: Inadequate Breathing Pattern Goal: Patient will achieve/maintain normal respiratory rate/effort Description: Patient's goal is: INTERVENTIONS 1. Assess and monitor respiratory rate, effort, breathing pattern, and oxygenation 2. Monitor patient for restlessness, anxiety, air hunger 3. Assess physical activity tolerance 4. Assess tobacco history; ask, advise, and refer as appropriate 5. Collaborate with interdisciplinary team and initiate plans/interventions as needed 05/15/2025 1511 by GABBY Camarena Outcome: Adequate for Discharge 05/15/2025 134 by GABBY Camarena Outcome: Progressing Note: Evaluation of progress towards goal: Pt is able to maintain a patent airway and breath sounds are clear. Continue to monitor. Goal: Patient will maintain effective ventilation Description: Patient's goal is: INTERVENTIONS 1. Assess and monitor vital signs, respiratory status (to include respiratory rate, depth, effort, and breath sounds), oxygen saturation, oral mucosa, tongue, pain, and labs (ABGs). 2. Collaborate with interdisciplinary team and initiate plans and interventions as needed 3. Oxygen therapy as indicated 4. Position patient for maximum ventilatory efficiency 5. Instruct patient to turn, cough, and deep breathe; encourage incentive spirometer if indicated 6. Plan activities to conserve energy 7. Encourage ambulation/activity per patient's tolerance 8. Collaborate with patient/RT to administer medications/treatments 9. Monitor lab/diagnostic results 05/15/20251510 by GABBY Camarena Outcome: Adequate for Discharge 05/15/20251348 by GABBY Camarena Outcome: Progressing Note: Evaluation of progress towards goal: Pt is able to maintain a patent airway and breath sounds are clear. Continue to monitor. Problem: Anxiety Goal: Anxiety is at manageable level Description: Patient's goal is: INTERVENTIONS 1. Assess and monitor patient's anxiety level 2. Monitor for signs and symptoms of anxiety both physical and emotional (heart palpitations, chest pain, shortness of breath, headaches, nausea, feeling jumpy, restlessness, irritable, apprehensive) 3. Reorient/orient patient to unit/surroundings 4. Explain treatment plan 5. Explain tests/procedures prior to initiation 6. Encourage participation in care 7. Encourage verbalization of concerns/fears 8. Assess coping mechanisms 9. Assist in developing anxiety-reducing skills 10. Administer complimentary therapies 11. Manage patient's environment 12. Limit or eliminate stimulants such as caffeine and nicotine 13. Collaborate with ancillary departments 14. Include patient/patient sales account representative in decisions related to anxiety 05/15/2025 1511 by GABBY Camarena Outcome: Adequate for Discharge 05/15/2025 1349 by Migue RN Outcome: Progressing Note: Evaluation of progress towards goal: Education and reassurance provided as needed to maintain a decreased level of fear/anxiety as needed. Problem: Activity Intolerance/Impaired Mobility Goal: Mobility/activity is maintained at optimum level for patient Description: Patient's goal is: INTERVENTIONS 1. Assess and monitor patient barriers to mobility and need for assistive/adaptive devices 2. Assess patient's emotional response to limitations 3. Collaborate with interdisciplinary teams and initiate plans and interventions as ordered 4. Encourage independent activity per tolerance 5. Maintain proper body alignment 6. Perform active/passive ROM as tolerated/ordered 7. Coordinate activities to conserve energy 8. Reposition patient 9. Ensure adequate rest/sleep time 05/15/2025 1511 by Migue RN Outcome: Adequate for Discharge 05/15/2025 1349 by GABBY Camarena Outcome: Progressing Note: Evaluation of progress towards goal: Improve mobility, maintain or improve quality of self care Problem: Inadequate Coping Goal: Demonstrates and verbalizes ability to cope effectively Description: Patient's goal is: INTERVENTIONS 1. Patient is able to verbalize feelings related to emotional state 2. Encourage verbalization of feelings, perceptions, fears, stressors, loss of loved ones 3. Encourage verbalization of problems out of their control 4. Encourage participation in care and self management 5. Inform patient of all treatment/care prior to providing care 6. Collaborate with pastoral/spiritual care, social security specialist, mental health counselor as needed. 7. Instruct patient on diversional activities such as physical activity, distraction, and deep breathing exercises to assist with coping 8. Involve patient's sales account representative in care 05/15/2025 1511 by GABBY Camarena Outcome: Adequate for Discharge 05/15/2025 1349 by GABBY Camarena Outcome: Progressing Note: Evaluation of progress towards goal: Pt's on telemetry, strip read at beginning of shift and when changes occur and monitored throughout shift. Pt free of any dysrhythmias. VS and focused assessment done every 4 hours. Problem: Moderate - High Risk Fall Score Description: Patel Fall Score of =/> 25 or indicated by [facility] Assessment Goal: Patient should be free from fall Description: Interventions: 1. Wheelwright to environment 2. Hourly rounds addressing the 4 P's (Pain, Positioning, Possessions, Potty) 3. Clear area of hazards (spills, clutter, electrical cords, unnecessary equipment) 4. Place equipment (bed & TV controls, call light, phone, urinal) within reach 5. Encourage patient to wear glasses and hearing aides as appropriate 6. Maintain bed in lowest position 7. Lock wheels on bed/wheelchair 8. Provide adequate lighting, including night light 9. Assess need for additional bedding, food/fluids, pain med's prior to sleep/routinely 10. Provide gripper slippers or personal non-skid footwear 11. Teach patient and patient sales account representative to maintain environment for safety and engage in all aspects of fall prevention program 12. Remind patient to call for help before getting out of bed 13. Initiate bed/chair/exit alarms supportive devices as appropriate, (chair wedge, no-skid floor mat, raised edge mattress, hip protectors) 14. Locate patient bed assignment for optimal visualization 15. Evaluate and identify Safe Patient Handling Equipment needs 16. Provide supervision when out of bed or chair 17. Utilize gait belt as needed to assist with ambulation 18. Place adaptive equipment (cane, walker) within reach 19. Request patient sales account representative bring adaptive equipment/mobility aids from home or obtain and provide as needed 20. Consult pharmacy regarding effects of med's affecting mobility, cognition, and alternatives 21. Obtain physician order for PT if risk factors associated with mobility are present 22. Obtain physician order for OT as appropriate 23. Utilize diversional activities 24. Educate patient and patient sales account representative how to maintain a safe environment during visitation times (notify nurse prior to leaving bedside) 25. Consider appropriateness of medical or non-back office medical assistant 26. Set up voiding schedule as appropriate (every 2 hours) 05/15/2025 1511 by Migue RN Outcome: Adequate for Discharge 05/15/2025 1349 by Migue RN Outcome: Progressing Note: Evaluation of progress towards goal: Pt remains free from falls or accidental injury during stay. Fall prevention measures in place. Hourly rounding per RN and maintained. Problem: Potential for Compromised Skin Integrity Goal: Skin integrity is maintained or improved Description: Patient's goal is: INTERVENTIONS 1. Perform initial skin assessment on admission and as needed 2. Turn patient every 2 hours and PRN 3. Relieve pressure to bony prominences 4. Avoid shearing 5. Keep skin clean and dry 6. Alternate a full bath with partial baths for elderly 7. Apply lotion/moisturizer on skin 8. Monitor patient's hygiene practices 9. Float heels 10. Collaborate with interdisciplinary team and initiate plans and interventions as needed 05/15/2025 1511 by Migue RN Outcome: Adequate for Discharge 05/15/2025 1349 by GABBY Camarena Outcome: Progressing Note: Evaluation of progress towards goal: Maintain skin integrity and tissue integrity Goal: Patient's nutritional intake is adequate Description: Patient's goal is: INTERVENTIONS 1. Assess and monitor food intake and supplements, patient food preferences, nausea, vomiting, labs, oral cavity (gums, teeth, tongue, mucosa), proper denture fit, and cultural beliefs 2. Monitor for signs of hypoglycemia and hyperglycemia 3. Collaborate with interdisciplinary team and initiate plan and interventions as ordered 4. Monitor patient's weight 5. Assist patient with meals/food selection 6. Assist patient with eating 7. Allow adequate time for meals 8. Provide pleasant environment during mealtime 9. Increase social contact during mealtimes 10. Plan activities to conserve energy 11. Encourage/perform oral hygiene as appropriate 12. Encourage patient to take dietary supplement as ordered 13. Collaborate with clinical senior linux systems administrator 14. Include patient/ patient's sales account representative in decisions related to nutrition 05/15/2025 1511 by GABBY Camarena Outcome: Adequate for Discharge 05/15/2025 1349 by Migue RN Outcome: Progressing Note: Evaluation of progress towards goal: Patient understands the importance of proper nutrition to aid in healing. Problem: Urinary Incontinence Goal: Perineal skin integrity is maintained or improved Description: INTERVENTIONS 1. Assess genitourinary system, perineal skin, labs (urinalysis), and history of incontinence to include past management, aggravating, and alleviating factors 2. Keep skin clean and dry 3. Apply skin protectant 4. Develop skin care regimen 5. Provide privacy when changing patients incontinence device to maintain their dignity 6. Consider placing an indwelling catheter 7. Collaborate with interdisciplinary team and initiate plans and interventions as needed 05/15/2025 1511 by GABBY Camarena Outcome: Adequate for Discharge 05/15/2025 1349 by GABBY Camarena Outcome: Progressing Note: Evaluation of progress towards goal: Perineal skin kept clean and dry, privacy provided as needed, skin protectant applied as needed, labs monitored. Problem: Neurosensory - Adult Goal: Achieves stable or improved neurological status Description: Patient's goal is: INTERVENTIONS 1. Assess for and report changes in neurological status 2. Initiate measures to prevent increased intracranial pressure 3. Maintain blood pressure and fluid volume within ordered parameters to optimize cerebral perfusion and minimize risk of hemorrhage 4. Monitor temperature, glucose, and sodium. Initiate appropriate interventions as ordered 05/15/2025 1511 by GABBY Camarena Outcome: Adequate for Discharge 05/15/2025 1349 by GABBY Camarena Outcome: Progressing Note: Evaluation of progress towards goal: Pt able to participate in self care with no limitations. Continue to monitor. Problem: Cardiovascular - Adult Goal: Absence of cardiac dysrhythmias or at baseline Description: INTERVENTIONS: 1. Continuous cardiac monitoring, monitor vital signs, obtain 12 lead EKG as ordered 2. Monitor for therapeutic effect/ side effects and safely 3. Administer antiarrhythmic and heart rate control medications as ordered 3. Initiate emergency measures for life threatening arrhythmias 4. Monitor labs and administer replacement/adjust therapy as ordered 05/15/2025 1511 by GABBY Camarena Outcome: Adequate for Discharge 05/15/2025 1349 by GABBY Camarena Outcome: Progressing Note: Evaluation of progress towards goal: Pt's on telemetry, strip read at beginning of shift and when changes occur and monitored throughout shift. Pt free of any dysrhythmias. VS and focused assessment done every 4 hours. Problem: Respiratory - Adult Goal: Achieves optimal ventilation and oxygenation Description: Patient's goal is: INTERVENTIONS: 1. Assess for changes in respiratory status 2. Assess for changes in mentation and behavior 3. Position to facilitate oxygenation and minimize respiratory effort 4. Oxygen supplementation based on oxygen saturation or ABGs as ordered 5. Consult smoking cessation as indicated 6. Encourage broncho-pulmonary hygiene including cough, deep breathe, Incentive Spirometry, keep HOB elevated as tolerated, and encourage ambulation, as ordered 7. Assess the need for suctioning and obtain order to maintain clear airway 8. Assess and instruct patient to report SOB or any respiratory difficulty 9. Assess the need for Respiratory Therapy support if not already ordered 10. Initiate emergency measures for respiratory failure 05/15/2025 1511 by GABBY Camarena Outcome: Adequate for Discharge 05/15/2025 1349 by GABBY Camarena Outcome: Progressing Note: Evaluation of progress towards goal: Pt will maintain WDL saturation to ensure perfusion and oxygenation and ventilation [facility] 05-15-2025 Miscellaneous Notes Problem: Pain Goal: Patient goal is pain score less than 4, able to rest, and participant in treatment plan as appropriate Description: INTERVENTIONS: 1. Encourage patient or legal sales account representative to report early pain and ask for pain medicine when needed 2. Assess pain using appropriate pain scale and include the scale used when documenting 3. Administer analgesics based on type and severity of pain and evaluate response within appropriate time frame 4. Implement non-pharmacological measures as appropriate and evaluate response 5. Consider cultural and social influences on pain and pain management 6. Notify LIP if interventions ineffective or patient reports new pain 7. Monitor vital signs including pulse ox, end-tidal CO2 based on pain intervention 8. Reassess pain per policy 9. Teach patient or legal sales account representative interventions for comforting 05/15/2025 1511 by GABBY Camarena Outcome: Adequate for Discharge 05/15/2025 1349 by GABBY Camarena Outcome: Progressing Note: Evaluation of progress towards goal: Pt able to report pain according to 0/10 pain scale. Medicating patient for pain per orders. Problem: Safety Goal: Patient will be injury free during hospitalization Description: INTERVENTIONS: 1. Assess patient's risk for falls and implement fall prevention plan of care per policy 2. Provide and maintain a safe environment 3. Proper use of double Identifiers 4. Medication administration using the 5 rights 5. Hand hygiene 6. Specimens are labeled at the bedside 7. Instruct patient/ patient sales account representative about use of safety devices 8. Include patient/ patient sales account representative in decisions related to safety 05/15/2025 1511 by GABBY Camarena Outcome: Adequate for Discharge 05/15/2025 1349 by GABBY Camarena Outcome: Progressing Note: Evaluation of progress towards goal: Safety measures initiated/maintained. Pt remains safe from harm/injury/falls Problem: Infection Goal: Absence of infection during hospitalization Description: INTERVENTIONS 1. Assess and monitor for signs and symptoms of infection. 2. Monitor lab/diagnostic results. 3. Monitor all insertion sites i.e., indwelling lines, tubes and drains. 4. Monitor endotracheal (as able) and nasal secretions for changes in amount and color. 5. Administer medications as ordered. 6. Instruct and encourage patient and family to use good hand hygiene technique. 7. Identify and instruct patient/patient sales account representative in use of appropriate isolation precautions for identified infection/symptoms. 8. Provide and discuss with patient/patient sales account representative on educational MDRO sheet. 9. Encourage and monitor nutritional status daily and consult senior linux systems administrator if indicated. 10. Implement neutropenic guidelines as needed. 05/15/2025 1511 by GABBY Camarena Outcome: Adequate for Discharge 05/15/2025 1349 by GABBY Camarena Outcome: Progressing Note: Evaluation of progress towards goal: Pt afebrile at this time, continue to monitor for signs infection Problem: Knowledge Deficit Goal: Patient/patient sales account representative demonstrates understanding of disease process, treatment plan, medications, and discharge instructions Description: INTERVENTIONS 1. Complete learning assessment and assess knowledge base 2. Provide teaching at level of understanding 3. Provide teaching via preferred learning method(s) 05/15/2025 1511 by GABBY Camarena Outcome: Adequate for Discharge 05/15/2025 1349 by GABBY Camarena Outcome: Progressing Note: Evaluation of progress towards goal: Evaluate, educate, reinforce learning needs and gaps t/o shift. Problem: Discharge Planning Goal: Discharge to post-acute care, other facility, or home with appropriate resources Description: Patient's goal is: INTERVENTIONS 1. Conduct assessment to determine patient/family and health care team treatment goals, and need for post-acute services based on payer coverage, community resources, and patient preferences, and barriers to discharge 2. Coordinate with Social work, Care Navigation, and Utilization Review to arrange appropriate level of services according to patient's needs based on patient preference and payer coverage in collaboration with the physician and health care team 3. Address psychosocial, clinical, and financial barriers to discharge as identified in assessment in conjunction with the patient/family and health care team 4. Consult appropriate ancillary services (i.e.. PT/OT/ST, etc) as needed 5. Communicate with and update the patient/family, physician, and health care team regarding progress on the discharge plan 6. Identify discharge learning needs (meds, wound care, etc). 7. Arrange for needed discharge transportation as appropriate 05/15/20251510 by Migue RN Outcome: Adequate for Discharge 05/15/20251348 by Migue RN Outcome: Progressing Note: Evaluation of progress towards goal: Continue to monitor t/o shift to assess for discharge needs. Problem: Readmission Risk Reduction Goal: Readmission Risk Assessment Description: Utilize readmission risk score in the development of discharge plan INTERVENTIONS: 1. Discuss patient's risk of readmission at multidisciplinary discharge transition rounds. 2. Comprehensive assessment of patient's risk of readmission (functional, psychosocial, cognitive). 3. Collaborate with patient / caregiver to identify needs. 4. Handoff to next level of care provider (respiratory care technician, PCP, home care). 5. Complete follow up phone call within 72 hours. 05/15/20251510 by GABBY Camarena Outcome: Adequate for Discharge 05/15/20251348 by GABBY Camarena Outcome: Progressing Note: Evaluation of progress towards goal: n/a Goal: Discharge Medication Plan Description: Develop a plan to ensure that medications are obtained at the time of discharge INTERVENTIONS: 1. Utilize outpatient pharmacy to deliver medications to patient prior to discharge, where available. 2. Ensure that prescriptions are sent to the patient's pharmacy of choice prior to patient leaving the hospital. If possible, confirm authorizations and co-pays and communicate to patient. 3. During discharge follow-up phone call, confirm that prescriptions have been filled. 05/15/20251510 by GABBY Camarena Outcome: Adequate for Discharge 05/15/20251348 by GABBY Camarena Outcome: Progressing Note: Evaluation of progress towards goal: n/a Goal: Follow-Up Appointments Description: Schedule patient-centric follow-up appointments prior to discharge INTERVENTIONS: 1. Identify recommended / appropriate timeframes for follow-up. 2. Discuss transportation needs and scheduling preferences with patient. 3. Verify that all follow-up appointments are scheduled prior to discharge. 05/15/2025 151 by GABBY Camarena Outcome: Adequate for Discharge 05/15/20251348 by GABBY Camarena Outcome: Progressing Note: Evaluation of progress towards goal: Pt's on telemetry, strip read at beginning of shift and when changes occur and monitored throughout shift. Pt free of any dysrhythmias. VS and focused assessment done every 4 hours. Goal: Discharge Medication Reconciliation Description: Review discharge medication reconciliation for accuracy INTERVENTIONS: 1. Include last dose date / time on the discharge medication list. 2. Utilize available resources to identify and address issues. 3. Consider use of a Discharge Time-Out or Discharge Final Check. 4. Refer to homecare, as appropriate, for home medication review. 05/15/2025 1511 by GABBY Camarena Outcome: Adequate for Discharge 05/15/2025 1349 by Migue RN Outcome: Progressing Note: Evaluation of progress towards goal: Pt's on telemetry, strip read at beginning of shift and when changes occur and monitored throughout shift. Pt free of any dysrhythmias. VS and focused assessment done every 4 hours. Goal: Discharge Instructions Description: Provide accurate and complete discharge instructions, taking into account health literacy of the patient INTERVENTIONS: 1. Assess patient's learning needs including health literacy. 2. Provide disease-specific education as appropriate. 3. Consider use of teach-back to verify patient / caregiver understanding. 4. Verify understanding of discharge instructions. 5. Consider use of a Discharge Time-Out or Discharge Final-Check. 05/15/2025 151 by Migue RN Outcome: Adequate for Discharge 05/15/2025 134 by GABBY Camarena Outcome: Progressing Note: Evaluation of progress towards goal: n/a Problem: Inadequate Airway Clearance Goal: Patient will maintain patent airway Description: INTERVENTIONS 1. Assess and monitor breath sounds, cough and sputum (if present) 2. Monitor respiratory rate and oxygen saturation 3. Collaborate with respiratory therapy to administer medication, oxygen, and suitable airway clearance techniques as ordered 4. Position patient for maximum ventilatory efficiency; elevate head of bed at least 30 degrees if appropriate 5. Provide adequate fluid intake to liquify secretions if appropriate 6. Suction secretions as indicated to maintain patent airway 7. Instruct patient to turn, cough, and deep breathe; encourage incentive spirometer if indicated 05/15/2025 151 by Migue RN Outcome: Adequate for Discharge 05/15/20251348 by Migue RN Outcome: Progressing Note: Evaluation of progress towards goal: Pt is able to maintain a patent airway and breath sounds are clear. Continue to monitor. Problem: Inadequate Breathing Pattern Goal: Patient will achieve/maintain normal respiratory rate/effort Description: Patient's goal is: INTERVENTIONS 1. Assess and monitor respiratory rate, effort, breathing pattern, and oxygenation 2. Monitor patient for restlessness, anxiety, air hunger 3. Assess physical activity tolerance 4. Assess tobacco history; ask, advise, and refer as appropriate 5. Collaborate with interdisciplinary team and initiate plans/interventions as needed 05/15/2025 1511 by GABBY Camarena Outcome: Adequate for Discharge 05/15/2025 1349 by GABBY Camarena Outcome: Progressing Note: Evaluation of progress towards goal: Pt is able to maintain a patent airway and breath sounds are clear. Continue to monitor. Goal: Patient will maintain effective ventilation Description: Patient's goal is: INTERVENTIONS 1. Assess and monitor vital signs, respiratory status (to include respiratory rate, depth, effort, and breath sounds), oxygen saturation, oral mucosa, tongue, pain, and labs (ABGs). 2. Collaborate with interdisciplinary team and initiate plans and interventions as needed 3. Oxygen therapy as indicated 4. Position patient for maximum ventilatory efficiency 5. Instruct patient to turn, cough, and deep breathe; encourage incentive spirometer if indicated 6. Plan activities to conserve energy 7. Encourage ambulation/activity per patient's tolerance 8. Collaborate with patient/RT to administer medications/treatments 9. Monitor lab/diagnostic results 05/15/2025 1511 by GABBY Camarena Outcome: Adequate for Discharge 05/15/2025 1349 by GABBY Camarena Outcome: Progressing Note: Evaluation of progress towards goal: Pt is able to maintain a patent airway and breath sounds are clear. Continue to monitor. Problem: Anxiety Goal: Anxiety is at manageable level Description: Patient's goal is: INTERVENTIONS 1. Assess and monitor patient's anxiety level 2. Monitor for signs and symptoms of anxiety both physical and emotional (heart palpitations, chest pain, shortness of breath, headaches, nausea, feeling jumpy, restlessness, irritable, apprehensive) 3. Reorient/orient patient to unit/surroundings 4. Explain treatment plan 5. Explain tests/procedures prior to initiation 6. Encourage participation in care 7. Encourage verbalization of concerns/fears 8. Assess coping mechanisms 9. Assist in developing anxiety-reducing skills 10. Administer complimentary therapies 11. Manage patient's environment 12. Limit or eliminate stimulants such as caffeine and nicotine 13. Collaborate with ancillary departments 14. Include patient/patient sales account representative in decisions related to anxiety 05/15/2025 1511 by GABBY Camarena Outcome: Adequate for Discharge 05/15/2025 1349 by GABBY Camarena Outcome: Progressing Note: Evaluation of progress towards goal: Education and reassurance provided as needed to maintain a decreased level of fear/anxiety as needed. Problem: Activity Intolerance/Impaired Mobility Goal: Mobility/activity is maintained at optimum level for patient Description: Patient's goal is: INTERVENTIONS 1. Assess and monitor patient barriers to mobility and need for assistive/adaptive devices 2. Assess patient's emotional response to limitations 3. Collaborate with interdisciplinary teams and initiate plans and interventions as ordered 4. Encourage independent activity per tolerance 5. Maintain proper body alignment 6. Perform active/passive ROM as tolerated/ordered 7. Coordinate activities to conserve energy 8. Reposition patient 9. Ensure adequate rest/sleep time 05/15/2025 1511 by Migue RN Outcome: Adequate for Discharge 05/15/2025 1349 by GABBY Camarena Outcome: Progressing Note: Evaluation of progress towards goal: Improve mobility, maintain or improve quality of self care Problem: Inadequate Coping Goal: Demonstrates and verbalizes ability to cope effectively Description: Patient's goal is: INTERVENTIONS 1. Patient is able to verbalize feelings related to emotional state 2. Encourage verbalization of feelings, perceptions, fears, stressors, loss of loved ones 3. Encourage verbalization of problems out of their control 4. Encourage participation in care and self management 5. Inform patient of all treatment/care prior to providing care 6. Collaborate with pastoral/spiritual care, social security specialist, mental health counselor as needed. 7. Instruct patient on diversional activities such as physical activity, distraction, and deep breathing exercises to assist with coping 8. Involve patient's sales account representative in care 05/15/2025 1511 by GABBY Camarena Outcome: Adequate for Discharge 05/15/2025 1349 by GABBY Camarena Outcome: Progressing Note: Evaluation of progress towards goal: Pt's on telemetry, strip read at beginning of shift and when changes occur and monitored throughout shift. Pt free of any dysrhythmias. VS and focused assessment done every 4 hours. Problem: Moderate - High Risk Fall Score Description: Patel Fall Score of =/> 25 or indicated by [facility] Assessment Goal: Patient should be free from fall Description: Interventions: 1. Wheelwright to environment 2. Hourly rounds addressing the 4 P's (Pain, Positioning, Possessions, Potty) 3. Clear area of hazards (spills, clutter, electrical cords, unnecessary equipment) 4. Place equipment (bed & TV controls, call light, phone, urinal) within reach 5. Encourage patient to wear glasses and hearing aides as appropriate 6. Maintain bed in lowest position 7. Lock wheels on bed/wheelchair 8. Provide adequate lighting, including night light 9. Assess need for additional bedding, food/fluids, pain med's prior to sleep/routinely 10. Provide gripper slippers or personal non-skid footwear 11. Teach patient and patient sales account representative to maintain environment for safety and engage in all aspects of fall prevention program 12. Remind patient to call for help before getting out of bed 13. Initiate bed/chair/exit alarms supportive devices as appropriate, (chair wedge, no-skid floor mat, raised edge mattress, hip protectors) 14. Locate patient bed assignment for optimal visualization 15. Evaluate and identify Safe Patient Handling Equipment needs 16. Provide supervision when out of bed or chair 17. Utilize gait belt as needed to assist with ambulation 18. Place adaptive equipment (cane, walker) within reach 19. Request patient sales account representative bring adaptive equipment/mobility aids from home or obtain and provide as needed 20. Consult pharmacy regarding effects of med's affecting mobility, cognition, and alternatives 21. Obtain physician order for PT if risk factors associated with mobility are present 22. Obtain physician order for OT as appropriate 23. Utilize diversional activities 24. Educate patient and patient sales account representative how to maintain a safe environment during visitation times (notify nurse prior to leaving bedside) 25. Consider appropriateness of medical or non-back office medical assistant 26. Set up voiding schedule as appropriate (every 2 hours) 05/15/2025 1511 by GABBY Camarena Outcome: Adequate for Discharge 05/15/2025 1349 by Migue RN Outcome: Progressing Note: Evaluation of progress towards goal: Pt remains free from falls or accidental injury during stay. Fall prevention measures in place. Hourly rounding per RN and maintained. Problem: Potential for Compromised Skin Integrity Goal: Skin integrity is maintained or improved Description: Patient's goal is: INTERVENTIONS 1. Perform initial skin assessment on admission and as needed 2. Turn patient every 2 hours and PRN 3. Relieve pressure to bony prominences 4. Avoid shearing 5. Keep skin clean and dry 6. Alternate a full bath with partial baths for elderly 7. Apply lotion/moisturizer on skin 8. Monitor patient's hygiene practices 9. Float heels 10. Collaborate with interdisciplinary team and initiate plans and interventions as needed 05/15/2025 1511 by GABBY Camarena Outcome: Adequate for Discharge 05/15/2025 1349 by Migue RN Outcome: Progressing Note: Evaluation of progress towards goal: Maintain skin integrity and tissue integrity Goal: Patient's nutritional intake is adequate Description: Patient's goal is: INTERVENTIONS 1. Assess and monitor food intake and supplements, patient food preferences, nausea, vomiting, labs, oral cavity (gums, teeth, tongue, mucosa), proper denture fit, and cultural beliefs 2. Monitor for signs of hypoglycemia and hyperglycemia 3. Collaborate with interdisciplinary team and initiate plan and interventions as ordered 4. Monitor patient's weight 5. Assist patient with meals/food selection 6. Assist patient with eating 7. Allow adequate time for meals 8. Provide pleasant environment during mealtime 9. Increase social contact during mealtimes 10. Plan activities to conserve energy 11. Encourage/perform oral hygiene as appropriate 12. Encourage patient to take dietary supplement as ordered 13. Collaborate with clinical senior linux systems administrator 14. Include patient/ patient's sales account representative in decisions related to nutrition 05/15/2025 1511 by GABBY Camarena Outcome: Adequate for Discharge 05/15/2025 1349 by GABBY Camarena Outcome: Progressing Note: Evaluation of progress towards goal: Patient understands the importance of proper nutrition to aid in healing. Problem: Urinary Incontinence Goal: Perineal skin integrity is maintained or improved Description: INTERVENTIONS 1. Assess genitourinary system, perineal skin, labs (urinalysis), and history of incontinence to include past management, aggravating, and alleviating factors 2. Keep skin clean and dry 3. Apply skin protectant 4. Develop skin care regimen 5. Provide privacy when changing patients incontinence device to maintain their dignity 6. Consider placing an indwelling catheter 7. Collaborate with interdisciplinary team and initiate plans and interventions as needed 05/15/2025 1511 by GABBY Camarena Outcome: Adequate for Discharge 05/15/2025 1349 by GABBY Camarena Outcome: Progressing Note: Evaluation of progress towards goal: Perineal skin kept clean and dry, privacy provided as needed, skin protectant applied as needed, labs monitored. Problem: Neurosensory - Adult Goal: Achieves stable or improved neurological status Description: Patient's goal is: INTERVENTIONS 1. Assess for and report changes in neurological status 2. Initiate measures to prevent increased intracranial pressure 3. Maintain blood pressure and fluid volume within ordered parameters to optimize cerebral perfusion and minimize risk of hemorrhage 4. Monitor temperature, glucose, and sodium. Initiate appropriate interventions as ordered 05/15/2025 1511 by GABBY Camarena Outcome: Adequate for Discharge 05/15/2025 1349 by Migue RN Outcome: Progressing Note: Evaluation of progress towards goal: Pt able to participate in self care with no limitations. Continue to monitor. Problem: Cardiovascular - Adult Goal: Absence of cardiac dysrhythmias or at baseline Description: INTERVENTIONS: 1. Continuous cardiac monitoring, monitor vital signs, obtain 12 lead EKG as ordered 2. Monitor for therapeutic effect/ side effects and safely 3. Administer antiarrhythmic and heart rate control medications as ordered 3. Initiate emergency measures for life threatening arrhythmias 4. Monitor labs and administer replacement/adjust therapy as ordered 05/15/2025 1511 by iMgue RN Outcome: Adequate for Discharge 05/15/2025 1349 by GABBY Camarena Outcome: Progressing Note: Evaluation of progress towards goal: Pt's on telemetry, strip read at beginning of shift and when changes occur and monitored throughout shift. Pt free of any dysrhythmias. VS and focused assessment done every 4 hours. Problem: Respiratory - Adult Goal: Achieves optimal ventilation and oxygenation Description: Patient's goal is: INTERVENTIONS: 1. Assess for changes in respiratory status 2. Assess for changes in mentation and behavior 3. Position to facilitate oxygenation and minimize respiratory effort 4. Oxygen supplementation based on oxygen saturation or ABGs as ordered 5. Consult smoking cessation as indicated 6. Encourage broncho-pulmonary hygiene including cough, deep breathe, Incentive Spirometry, keep HOB elevated as tolerated, and encourage ambulation, as ordered 7. Assess the need for suctioning and obtain order to maintain clear airway 8. Assess and instruct patient to report SOB or any respiratory difficulty 9. Assess the need for Respiratory Therapy support if not already ordered 10. Initiate emergency measures for respiratory failure 05/15/2025 1511 by GABBY Camarena Outcome: Adequate for Discharge 05/15/2025 1349 by GABBY Camarena Outcome: Progressing Note: Evaluation of progress towards goal: Pt will maintain WDL saturation to ensure perfusion and oxygenation and ventilation DISCHARGE PLANNING NOTE Prior Auth approved for admission to : [facility] , [place], [place] (P# ; F# ) Approval # [id number] Valid for Dates: 05/15/2025 - 05/21/2025 Problem: Pain Goal: Patient goal is pain score less than 4, able to rest, and participant in treatment plan as appropriate Description: INTERVENTIONS: 1. Encourage patient or legal sales account representative to report early pain and ask for pain medicine when needed 2. Assess pain using appropriate pain scale and include the scale used when documenting 3. Administer analgesics based on type and severity of pain and evaluate response within appropriate time frame 4. Implement non-pharmacological measures as appropriate and evaluate response 5. Consider cultural and social influences on pain and pain management 6. Notify LIP if interventions ineffective or patient reports new pain 7. Monitor vital signs including pulse ox, end-tidal CO2 based on pain intervention 8. Reassess pain per policy 9. Teach patient or legal sales account representative interventions for comforting Outcome: Progressing Note: Evaluation of progress towards goal: Pt able to report pain according to 0/10 pain scale. Medicating patient for pain per orders. Problem: Safety Goal: Patient will be injury free during hospitalization Description: INTERVENTIONS: 1. Assess patient's risk for falls and implement fall prevention plan of care per policy 2. Provide and maintain a safe environment 3. Proper use of double Identifiers 4. Medication administration using the 5 rights 5. Hand hygiene 6. Specimens are labeled at the bedside 7. Instruct patient/ patient sales account representative about use of safety devices 8. Include patient/ patient sales account representative in decisions related to safety Outcome: Progressing Note: Evaluation of progress towards goal: Safety measures initiated/maintained. Pt remains safe from harm/injury/falls Problem: Infection Goal: Absence of infection during hospitalization Description: INTERVENTIONS 1. Assess and monitor for signs and symptoms of infection. 2. Monitor lab/diagnostic results. 3. Monitor all insertion sites i.e., indwelling lines, tubes and drains. 4. Monitor endotracheal (as able) and nasal secretions for changes in amount and color. 5. Administer medications as ordered. 6. Instruct and encourage patient and family to use good hand hygiene technique. 7. Identify and instruct patient/patient sales account representative in use of appropriate isolation precautions for identified infection/symptoms. 8. Provide and discuss with patient/patient sales account representative on educational MDRO sheet. 9. Encourage and monitor nutritional status daily and consult senior linux systems administrator if indicated. 10. Implement neutropenic guidelines as needed. Outcome: Progressing Note: Evaluation of progress towards goal: Pt afebrile at this time, continue to monitor for signs infection Problem: Knowledge Deficit Goal: Patient/patient sales account representative demonstrates understanding of disease process, treatment plan, medications, and discharge instructions Description: INTERVENTIONS 1. Complete learning assessment and assess knowledge base 2. Provide teaching at level of understanding 3. Provide teaching via preferred learning method(s) Outcome: Progressing Note: Evaluation of progress towards goal: Evaluate, educate, reinforce learning needs and gaps t/o shift. Problem: Discharge Planning Goal: Discharge to post-acute care, other facility, or home with appropriate resources Description: Patient's goal is: INTERVENTIONS 1. Conduct assessment to determine patient/family and health care team treatment goals, and need for post-acute services based on payer coverage, community resources, and patient preferences, and barriers to discharge 2. Coordinate with Social work, Care Navigation, and Utilization Review to arrange appropriate level of services according to patient's needs based on patient preference and payer coverage in collaboration with the physician and health care team 3. Address psychosocial, clinical, and financial barriers to discharge as identified in assessment in conjunction with the patient/family and health care team 4. Consult appropriate ancillary services (i.e.. PT/OT/ST, etc) as needed 5. Communicate with and update the patient/family, physician, and health care team regarding progress on the discharge plan 6. Identify discharge learning needs (meds, wound care, etc). 7. Arrange for needed discharge transportation as appropriate Outcome: Progressing Note: Evaluation of progress towards goal: Continue to monitor t/o shift to assess for discharge needs. Problem: Readmission Risk Reduction Goal: Readmission Risk Assessment Description: Utilize readmission risk score in the development of discharge plan INTERVENTIONS: 1. Discuss patient's risk of readmission at multidisciplinary discharge transition rounds. 2. Comprehensive assessment of patient's risk of readmission (functional, psychosocial, cognitive). 3. Collaborate with patient / caregiver to identify needs. 4. Handoff to next level of care provider (respiratory care technician, PCP, home care). 5. Complete follow up phone call within 72 hours. Outcome: Progressing Note: Evaluation of progress towards goal: n/a Goal: Discharge Medication Plan Description: Develop a plan to ensure that medications are obtained at the time of discharge INTERVENTIONS: 1. Utilize outpatient pharmacy to deliver medications to patient prior to discharge, where available. 2. Ensure that prescriptions are sent to the patient's pharmacy of choice prior to patient leaving the hospital. If possible, confirm authorizations and co-pays and communicate to patient. 3. During discharge follow-up phone call, confirm that prescriptions have been filled. Outcome: Progressing Note: Evaluation of progress towards goal: n/a Goal: Follow-Up Appointments Description: Schedule patient-centric follow-up appointments prior to discharge INTERVENTIONS: 1. Identify recommended / appropriate timeframes for follow-up. 2. Discuss transportation needs and scheduling preferences with patient. 3. Verify that all follow-up appointments are scheduled prior to discharge. Outcome: Progressing Note: Evaluation of progress towards goal: Pt's on telemetry, strip read at beginning of shift and when changes occur and monitored throughout shift. Pt free of any dysrhythmias. VS and focused assessment done every 4 hours. Goal: Discharge Medication Reconciliation Description: Review discharge medication reconciliation for accuracy INTERVENTIONS: 1. Include last dose date / time on the discharge medication list. 2. Utilize available resources to identify and address issues. 3. Consider use of a Discharge Time-Out or Discharge Final Check. 4. Refer to homecare, as appropriate, for home medication review. Outcome: Progressing Note: Evaluation of progress towards goal: Pt's on telemetry, strip read at beginning of shift and when changes occur and monitored throughout shift. Pt free of any dysrhythmias. VS and focused assessment done every 4 hours. Goal: Discharge Instructions Description: Provide accurate and complete discharge instructions, taking into account health literacy of the patient INTERVENTIONS: 1. Assess patient's learning needs including health literacy. 2. Provide disease-specific education as appropriate. 3. Consider use of teach-back to verify patient / caregiver understanding. 4. Verify understanding of discharge instructions. 5. Consider use of a Discharge Time-Out or Discharge Final-Check. Outcome: Progressing Note: Evaluation of progress towards goal: n/a Problem: Inadequate Airway Clearance Goal: Patient will maintain patent airway Description: INTERVENTIONS 1. Assess and monitor breath sounds, cough and sputum (if present) 2. Monitor respiratory rate and oxygen saturation 3. Collaborate with respiratory therapy to administer medication, oxygen, and suitable airway clearance techniques as ordered 4. Position patient for maximum ventilatory efficiency; elevate head of bed at least 30 degrees if appropriate 5. Provide adequate fluid intake to liquify secretions if appropriate 6. Suction secretions as indicated to maintain patent airway 7. Instruct patient to turn, cough, and deep breathe; encourage incentive spirometer if indicated Outcome: Progressing Note: Evaluation of progress towards goal: Pt is able to maintain a patent airway and breath sounds are clear. Continue to monitor. Problem: Inadequate Breathing Pattern Goal: Patient will achieve/maintain normal respiratory rate/effort Description: Patient's goal is: INTERVENTIONS 1. Assess and monitor respiratory rate, effort, breathing pattern, and oxygenation 2. Monitor patient for restlessness, anxiety, air hunger 3. Assess physical activity tolerance 4. Assess tobacco history; ask, advise, and refer as appropriate 5. Collaborate with interdisciplinary team and initiate plans/interventions as needed Outcome: Progressing Note: Evaluation of progress towards goal: Pt is able to maintain a patent airway and breath sounds are clear. Continue to monitor. Goal: Patient will maintain effective ventilation Description: Patient's goal is: INTERVENTIONS 1. Assess and monitor vital signs, respiratory status (to include respiratory rate, depth, effort, and breath sounds), oxygen saturation, oral mucosa, tongue, pain, and labs (ABGs). 2. Collaborate with interdisciplinary team and initiate plans and interventions as needed 3. Oxygen therapy as indicated 4. Position patient for maximum ventilatory efficiency 5. Instruct patient to turn, cough, and deep breathe; encourage incentive spirometer if indicated 6. Plan activities to conserve energy 7. Encourage ambulation/activity per patient's tolerance 8. Collaborate with patient/RT to administer medications/treatments 9. Monitor lab/diagnostic results Outcome: Progressing Note: Evaluation of progress towards goal: Pt is able to maintain a patent airway and breath sounds are clear. Continue to monitor. Problem: Anxiety Goal: Anxiety is at manageable level Description: Patient's goal is: INTERVENTIONS 1. Assess and monitor patient's anxiety level 2. Monitor for signs and symptoms of anxiety both physical and emotional (heart palpitations, chest pain, shortness of breath, headaches, nausea, feeling jumpy, restlessness, irritable, apprehensive) 3. Reorient/orient patient to unit/surroundings 4. Explain treatment plan 5. Explain tests/procedures prior to initiation 6. Encourage participation in care 7. Encourage verbalization of concerns/fears 8. Assess coping mechanisms 9. Assist in developing anxiety-reducing skills 10. Administer complimentary therapies 11. Manage patient's environment 12. Limit or eliminate stimulants such as caffeine and nicotine 13. Collaborate with ancillary departments 14. Include patient/patient sales account representative in decisions related to anxiety Outcome: Progressing Note: Evaluation of progress towards goal: Education and reassurance provided as needed to maintain a decreased level of fear/anxiety as needed. Problem: Activity Intolerance/Impaired Mobility Goal: Mobility/activity is maintained at optimum level for patient Description: Patient's goal is: INTERVENTIONS 1. Assess and monitor patient barriers to mobility and need for assistive/adaptive devices 2. Assess patient's emotional response to limitations 3. Collaborate with interdisciplinary teams and initiate plans and interventions as ordered 4. Encourage independent activity per tolerance 5. Maintain proper body alignment 6. Perform active/passive ROM as tolerated/ordered 7. Coordinate activities to conserve energy 8. Reposition patient 9. Ensure adequate rest/sleep time Outcome: Progressing Note: Evaluation of progress towards goal: Improve mobility, maintain or improve quality of self care Problem: Inadequate Coping Goal: Demonstrates and verbalizes ability to cope effectively Description: Patient's goal is: INTERVENTIONS 1. Patient is able to verbalize feelings related to emotional state 2. Encourage verbalization of feelings, perceptions, fears, stressors, loss of loved ones 3. Encourage verbalization of problems out of their control 4. Encourage participation in care and self management 5. Inform patient of all treatment/care prior to providing care 6. Collaborate with pastoral/spiritual care, social security specialist, mental health counselor as needed. 7. Instruct patient on diversional activities such as physical activity, distraction, and deep breathing exercises to assist with coping 8. Involve patient's sales account representative in care Outcome: Progressing Note: Evaluation of progress towards goal: Pt's on telemetry, strip read at beginning of shift and when changes occur and monitored throughout shift. Pt free of any dysrhythmias. VS and focused assessment done every 4 hours. Problem: Moderate - High Risk Fall Score Description: Patel Fall Score of =/> 25 or indicated by [facility] Assessment Goal: Patient should be free from fall Description: Interventions: 1. Wheelwright to environment 2. Hourly rounds addressing the 4 P's (Pain, Positioning, Possessions, Potty) 3. Clear area of hazards (spills, clutter, electrical cords, unnecessary equipment) 4. Place equipment (bed & TV controls, call light, phone, urinal) within reach 5. Encourage patient to wear glasses and hearing aides as appropriate 6. Maintain bed in lowest position 7. Lock wheels on bed/wheelchair 8. Provide adequate lighting, including night light 9. Assess need for additional bedding, food/fluids, pain med's prior to sleep/routinely 10. Provide gripper slippers or personal non-skid footwear 11. Teach patient and patient sales account representative to maintain environment for safety and engage in all aspects of fall prevention program 12. Remind patient to call for help before getting out of bed 13. Initiate bed/chair/exit alarms supportive devices as appropriate, (chair wedge, no-skid floor mat, raised edge mattress, hip protectors) 14. Locate patient bed assignment for optimal visualization 15. Evaluate and identify Safe Patient Handling Equipment needs 16. Provide supervision when out of bed or chair 17. Utilize gait belt as needed to assist with ambulation 18. Place adaptive equipment (cane, walker) within reach 19. Request patient sales account representative bring adaptive equipment/mobility aids from home or obtain and provide as needed 20. Consult pharmacy regarding effects of med's affecting mobility, cognition, and alternatives 21. Obtain physician order for PT if risk factors associated with mobility are present 22. Obtain physician order for OT as appropriate 23. Utilize diversional activities 24. Educate patient and patient sales account representative how to maintain a safe environment during visitation times (notify nurse prior to leaving bedside) 25. Consider appropriateness of medical or non-back office medical assistant 26. Set up voiding schedule as appropriate (every 2 hours) Outcome: Progressing Note: Evaluation of progress towards goal: Pt remains free from falls or accidental injury during stay. Fall prevention measures in place. Hourly rounding per RN and maintained. Problem: Potential for Compromised Skin Integrity Goal: Skin integrity is maintained or improved Description: Patient's goal is: INTERVENTIONS 1. Perform initial skin assessment on admission and as needed 2. Turn patient every 2 hours and PRN 3. Relieve pressure to bony prominences 4. Avoid shearing 5. Keep skin clean and dry 6. Alternate a full bath with partial baths for elderly 7. Apply lotion/moisturizer on skin 8. Monitor patient's hygiene practices 9. Float heels 10. Collaborate with interdisciplinary team and initiate plans and interventions as needed Outcome: Progressing Note: Evaluation of progress towards goal: Maintain skin integrity and tissue integrity Goal: Patient's nutritional intake is adequate Description: Patient's goal is: INTERVENTIONS 1. Assess and monitor food intake and supplements, patient food preferences, nausea, vomiting, labs, oral cavity (gums, teeth, tongue, mucosa), proper denture fit, and cultural beliefs 2. Monitor for signs of hypoglycemia and hyperglycemia 3. Collaborate with interdisciplinary team and initiate plan and interventions as ordered 4. Monitor patient's weight 5. Assist patient with meals/food selection 6. Assist patient with eating 7. Allow adequate time for meals 8. Provide pleasant environment during mealtime 9. Increase social contact during mealtimes 10. Plan activities to conserve energy 11. Encourage/perform oral hygiene as appropriate 12. Encourage patient to take dietary supplement as ordered 13. Collaborate with clinical senior linux systems administrator 14. Include patient/ patient's sales account representative in decisions related to nutrition Outcome: Progressing Note: Evaluation of progress towards goal: Patient understands the importance of proper nutrition to aid in healing. Problem: Urinary Incontinence Goal: Perineal skin integrity is maintained or improved Description: INTERVENTIONS 1. Assess genitourinary system, perineal skin, labs (urinalysis), and history of incontinence to include past management, aggravating, and alleviating factors 2. Keep skin clean and dry 3. Apply skin protectant 4. Develop skin care regimen 5. Provide privacy when changing patients incontinence device to maintain their dignity 6. Consider placing an indwelling catheter 7. Collaborate with interdisciplinary team and initiate plans and interventions as needed Outcome: Progressing Note: Evaluation of progress towards goal: Perineal skin kept clean and dry, privacy provided as needed, skin protectant applied as needed, labs monitored. Problem: Neurosensory - Adult Goal: Achieves stable or improved neurological status Description: Patient's goal is: INTERVENTIONS 1. Assess for and report changes in neurological status 2. Initiate measures to prevent increased intracranial pressure 3. Maintain blood pressure and fluid volume within ordered parameters to optimize cerebral perfusion and minimize risk of hemorrhage 4. Monitor temperature, glucose, and sodium. Initiate appropriate interventions as ordered Outcome: Progressing Note: Evaluation of progress towards goal: Pt able to participate in self care with no limitations. Continue to monitor. Problem: Cardiovascular - Adult Goal: Absence of cardiac dysrhythmias or at baseline Description: INTERVENTIONS: 1. Continuous cardiac monitoring, monitor vital signs, obtain 12 lead EKG as ordered 2. Monitor for therapeutic effect/ side effects and safely 3. Administer antiarrhythmic and heart rate control medications as ordered 3. Initiate emergency measures for life threatening arrhythmias 4. Monitor labs and administer replacement/adjust therapy as ordered Outcome: Progressing Note: Evaluation of progress towards goal: Pt's on telemetry, strip read at beginning of shift and when changes occur and monitored throughout shift. Pt free of any dysrhythmias. VS and focused assessment done every 4 hours. Problem: Respiratory - Adult Goal: Achieves optimal ventilation and oxygenation Description: Patient's goal is: INTERVENTIONS: 1. Assess for changes in respiratory status 2. Assess for changes in mentation and behavior 3. Position to facilitate oxygenation and minimize respiratory effort 4. Oxygen supplementation based on oxygen saturation or ABGs as ordered 5. Consult smoking cessation as indicated 6. Encourage broncho-pulmonary hygiene including cough, deep breathe, Incentive Spirometry, keep HOB elevated as tolerated, and encourage ambulation, as ordered 7. Assess the need for suctioning and obtain order to maintain clear airway 8. Assess and instruct patient to report SOB or any respiratory difficulty 9. Assess the need for Respiratory Therapy support if not already ordered 10. Initiate emergency measures for respiratory failure Outcome: Progressing Note: Evaluation of progress towards goal: Pt will maintain WDL saturation to ensure perfusion and oxygenation and ventilation Physical Therapy Evaluation Discharge Recommendations for Safe Patient Transition Discharge Recommendations: Post acute - moderate Post Acute Moderate Rehab Needs: Recommend moderate intensity rehab, Tolerate 1-2 hrs of therapy 3-5 days/wk, Subacute or chronic functional impairment Current Impairments Informing Therapy Recommendation: Ambulation status/safety, Cognition, Fall risk, ADL status, Endurance level Sheet Heater Helper Support for-: Mobility Deficits, ADL Deficits, Cognitive [...] A lot To walk in hospital room?: A lot Climbing 3-5 steps with a railing?: Total Scoring 6 Clicks: Basic Mobility Raw Score: 11 [facility] G Code Modifier: CL Therapy Plan Need for skilled Physical Therapy to address deficits in functional mobility due to a status decline resulting from fall, LE weakness, acute respiratory and hypoxia with new R. Lesser trochanter femur fracture with WBAT. PT Treatment/Interventions: Functional transfer training, LE strengthening/ROM, Endurance training, Balance, Bed mobility, Gait training, Functional activities, Neuromuscular reeducation PT Frequency: 5-6days/week PT Duration: 10 days Assessment Patient Assessment Therapy Problem List: Decreased ADL status, Decreased balance, Decreased cognition, Decreased endurance, Decreased high-level ADLs, Decreased mobility, Decreased safe judgement during ADL, Decreased self-care trans, Decreased UE strength, Decreased LE strength Patient Response to Treatment: Tolerated evaluation without adverse reaction Mood/Affect: Appropriate for circumstances Rehab Prognosis: Fair, Guarded, With continued PT status post acute discharge Visit RN Communication: Yes Medical Record Reviewed: Yes PT Type of Visit: Evaluation Precautions Activity: early mobility pass, OK to eval per Ileana PIERRE Equipment: pure whick, telesitter, bed and chair alarm, standard walker, gait belt, IV/midline Weight Bearing Status: WBAT Telemetry/Hospitality House Supervisor: Yes Oxygen Used: room air Other: fall risk Past Medical History: Diagnosis Date Anemia Arthritis Asthma very mild, no inhaler use Cataract Dental disease Depression Diabetes mellitus [place] Diabetes mellitus type 2, controlled ([facility] [place]) Encephalitis Foot fracture, left GERD (gastroesophageal reflux disease) Heart murmur HLD (hyperlipidemia) Hypertension Incontinence Injury of back Insulin dependent diabetes mellitus Kidney failure STAGE 4 Lumbar spondylolysis Murmur Obesity CHELSEA (obstructive sleep apnea) no machine Peptic ulceration Peripheral vascular disease Shortness of breath Stroke ([facility] 02/27/2024 TIA (transient ischemic attack) Upper respiratory infection UTI (urinary tract infection) Visual impairment Wears dentures Past Surgical History: Procedure Laterality Date BREAST BIOPSY Right 03/01/2023 ULT BIOPSY CATARACT EXTRACTION SECTION SECTION 03/14/1974 EGD N/A 10/17/2019 Performed by Sarai Bell DO at [facility] H-PERCUTANEOUS CORONARY INTERVENTION HYSTEROSCOPY DILATION CURETTAGE MYOSURE N/A 01/29/2021 Performed by Jv Briones MD at [facility] INJECTION BLOCK EPIDURAL CAUDAL STEROID N/A 08/14/2022 Performed by Arnulfo Gonzalez MD at [facility] INJECTION BLOCK EPIDURAL CAUDAL STEROID N/A 06/06/2021 Performed by Arnulfo Gonzalez MD at [facility] INJECTION BLOCK EPIDURAL CAUDAL STEROID N/A 04/25/2021 Performed by Arnlufo Gonzalez MD at [facility] INJECTION CAUDAL EPIDURAL WITH CATHETER, STEROID N/A 05/03/2020 Performed by Arnulfo Gonzalez MD at [facility] INJECTION CAUDAL EPIDURAL WITH CATHETER, STEROID N/A 11/24/2019 Performed by Arnulfo Gonzalez MD at [facility] INJECTION CAUDAL EPIDURAL WITH CATHETER, STEROID N/A 04/21/2019 Performed by Arnulfo Gonzalez MD at [facility] MEDIAL BRANCH NERVE BLOCK Bilateral L 4/5, 5/1 Bilateral 08/18/2019 Performed by Arnulfo Gonzalez MD at [facility] MEDIAL BRANCH NERVE BLOCK Bilateral L 4/5, 5/1 Bilateral 06/23/2019 Performed by Arnulfo Goznalez MD at [facility] INJECTION STEROID EPI 1 WITH SEDATION Right L 4, 5 NR Right 03/17/2019 Performed by Arnulfo Gonzalez MD at [facility] INJECTION STEROID EPI 1 WITH SEDATION: right L45 nroot Right 08/15/2018 Performed by Arnulfo Gonzalez MD at [facility] LEFT L4, AND 5 NERVE ROOT INJECTION 2 OF 2 Left 07/22/2018 Performed by Arnulfo Gonzalez MD at [facility] LEFT L4, AND L5 NERVE ROOT 1 OF 2 Left 07/04/2018 Performed by Arnulfo Gonzalez MD at [facility] SHUNT INSERTION TONSILLECTOMY AGE 4 Transcutaneous aortic valve replacement/Transfemoral/Kwan N/A 08/17/2023 Performed by Chava Norris MD at [facility] Valvuloplasty aortic N/A 06/03/2023 Performed by Chava Norris MD at [facility] Subjective Physical Therapy Comments: I think I'll be fine to go home, my daughter will help me. Pain Assessment Pain Assessment: No/denies pain (No pain at initiation of session. Increased pain with mobility but doesn't rate on VAS. Pain resolves once re-positioned in bed with pillow under knees.) Pain Intervention(s): Repositioned, Emotional support Home Living Type of Home: House Home Layout: One level Stairs to Enter: ramp in garage Stairs in Home: 0 Bathroom Shower/Tub: Tub/shower unit Bathroom Toilet: Raised Bathroom Equipment: Shower chair, Grab bars in shower, Grab bars around toilet (Reports she hasn't taken a shower lately) Home Equipment: 4 Wheeled walker, Wheelchair-manual, Hospital bed (Daughter plans to get her a lift chair) Prior Function Lives With: Daughter (Grandson born a female, does not work, 18, has autism. Daughter doesn't work, on disability.) Receives Help From: Family Level of Mobility: Needs assistance with ADLs or functional transfers or gait (Reports needs assist to stand. Independent with dressing, limited sponge bathing. Reports independent toileting and ambulation with rollator. Uses w/c in the community. Has not been out of the house for quite some time.) Homemaking Assistance: Needs assistance (Daughter and grandson complete all IADLs. Groceries delivered.) ADL / IADL Hand Dominance: Right Hearing / Speech / Vision Hearing: Within Functional Limits Speech: Within Functional Limits Current Vision: Wears glasses all the time Cognition Orientation Level: Oriented to place, Oriented to person, Oriented to age, Oriented to month Sensation Overall Sensation Status: (Denies numbness/tingling in UEs/LEs so did not formally assess) Bed Mobility Sit to Supine: Max assist (x 1 at trunk and LEs, cues for reverse log roll technique. Enters bed from the left.) Other: Ends session in supine, bed alarm intact, call button and bedside table within reach. Denies further needs. Transfers Sit to Stand: Max assist (from chair height, cues for safe hand placement, use of walker and gait belt. Blocking of bilateral feet. MAX A for anterior weight shift and bringing weight over base of support. Pushes against chair.) Stand to Sit: Max assist (For eccentric control, cues for safe hand placement. Fair return demonstration. Limited by pain.) Bed to Chair: Max assist (Chair to bed (transfer to right), MAX A to keep center of gravity over base of support, advance walker, assist to weight shift.) Stand Pivot Transfers: Max assist (Requires assist for weight shifting, cues to sequence, assist to negotiate walker.) Other: Begins session in bedside chair. Requests to return to bed. Does so with MAX A x 1 and use walker. Poor tolerance to standing and taking steps. Did not attempt gait training. Ends session supine in bed with bed alarm intact, call button and bedside table within reach. Denies further needs. Balance Sitting Balance: Static: Good Sitting Balance: Dynamic: Fair, Poor Standing Balance: Static: Fair, Poor Standing Balance: Dynamic: Poor Posture Posture Evaluation: (Decreased lumbar lordosis, lacks full hip extension to neutral bilaterally. Prefers bilatera knee flexion during standing against gravity.) RLE Assessment: (Grossly 3+/5, limited by pain) LLE Assessment: (Grossly 3+/5, ,limited by pain) Activity Tolerance Endurance: Tolerates <30 minutes activity WITHOUT vital sign changes Other: SpO2 87-92% on room air. Holds breath with exertion. Quickly returns to greater than 90% with cues. Plan Physical Therapy Care Plan Physical Therapy Care Plan (Active) Template: PT - Physical Therapy Problem: Activity Tolerance Dates: Start: 05/15/25 Disciplines: PT Goal: Tolerate 30 minutes of activity WITH rest breaks Dates: Start: 05/15/25 Expected End: 05/24/25 Description: Goal Description: to improve strength for carry over to independent transfers. Disciplines: PT Problem: Bed Mobility Dates: Start: 05/15/25 Disciplines: PT Goal: Patient will perform bed mobility with Moderate Assist Dates: Start: 05/15/25 Expected End: 05/25/25 Description: Goal Description: MOD A using log roll/reverse log roll technique to compensate for LE weakness and pain. Disciplines: PT Problem: Gait Dates: Start: 05/15/25 Disciplines: PT Goal: Patient will perform gait with Moderate Assist Dates: Start: 05/15/25 Expected End: 05/24/25 Description: With__RW__,__10__feet Goal Description: to negotiate short functional distance to/from chair for meals and bathroom for toileting as per PLOF. Disciplines: PT Problem: Transfers Dates: Start: 05/15/25 Disciplines: PT Goal: Patient will perform transfers with Moderate Assist Dates: Start: 05/15/25 Expected End: 05/24/25 Description: Goal Description: and use of walker do to improving LE strength to decrease caregiver burden at discharge. Disciplines: PT Physical Therapy Care Plan (Resolved) There are no resolved problems. Principal Problem: Acute respiratory failure with hypoxia [place] [place] Active Problems: 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 mellitus ([facility] [place] Mixed diabetic hyperlipidemia associated with type 2 diabetes mellitus ([facility] [place] Obstructive sleep apnea syndrome Essential (primary) hypertension Acute on chronic diastolic congestive heart failure ([facility] [place] Stage 3b chronic kidney disease ([facility] [place]) Type 2 diabetes mellitus with diabetic chronic kidney disease ([facility] [place] Iron deficiency anemia Hypomagnesemia Closed fracture of right hip ([facility] Nondisplaced fracture of lesser trochanter of right femur, initial encounter for closed fracture ([facility] [place]) Occupational Therapy Evaluation Discharge Recommendations for Safe Patient Transition Discharge Recommendations: Post acute - moderate Post Acute Moderate Rehab Needs: Recommend moderate intensity rehab, Subacute or chronic functional impairment, Tolerate 1-2 hrs of therapy 3-5 days/wk Current Impairments Informing Therapy Recommendation: Ambulation status/safety, Cognition, Fall risk, ADL status, Endurance level Sheet Heater Helper Support for-: Mobility Deficits, ADL Deficits, Cognitive Impairments 6 Clicks: Daily Activity Putting on and taking off regular lower body clothing?: Total Bathing (including washing, rinsing, drying)?: A lot Toileting, which includes using toilet, bedpan or urinal?: Total Putting on and taking off regular upper body clothing?: A little Taking care of personal grooming such as brushing teeth?: A little Eating meals?: A little Scoring Daily Activity Raw Score: 13 [facility] G Code Modifier: CL Therapy Plan/HPI/occupational profile throughout eval Need for skilled Occupational Therapy to address deficits in ADL independence and functional mobility due to a status decline resulting from acute respiratory failure with hypoxia found to have RT lesser trochanter fracture per ortho WBAT. A moderate complex eval completed. Past Surgical History: Procedure Laterality Date BREAST BIOPSY Right 03/01/2023 ULT BIOPSY CATARACT EXTRACTION SECTION SECTION 03/14/1974 EGD N/A 10/17/2019 Performed by Sarai Bell DO at [facility] H-PERCUTANEOUS CORONARY INTERVENTION HYSTEROSCOPY DILATION CURETTAGE MYOSURE N/A 01/29/2021 Performed by Jv Briones MD at [facility] INJECTION BLOCK EPIDURAL CAUDAL STEROID N/A 08/14/2022 Performed by Arnulfo Gonzalez MD at [facility] INJECTION BLOCK EPIDURAL CAUDAL STEROID N/A 06/06/2021 Performed by Arnulfo Gonzalez MD at [facility] INJECTION BLOCK EPIDURAL CAUDAL STEROID N/A 04/25/2021 Performed by Arnulfo Gonzalez MD at [facility] INJECTION CAUDAL EPIDURAL WITH CATHETER, STEROID N/A 05/03/2020 Performed by Arnulfo Gonzalez MD at [facility] INJECTION CAUDAL EPIDURAL WITH CATHETER, STEROID N/A 11/24/2019 Performed by Arnulfo Gonzalez MD at [facility] INJECTION CAUDAL EPIDURAL WITH CATHETER, STEROID N/A 04/21/2019 Performed by Arnulfo Gonzalez MD at [facility] INJECTION MEDIAL BRANCH NERVE BLOCK Bilateral L 4/5, 5/1 Bilateral 08/18/2019 Performed by Arnulfo Gonzalez MD at [facility] MEDIAL BRANCH NERVE BLOCK Bilateral L 4/5, 5/1 Bilateral 06/23/2019 Performed by Arnulfo Gonzalez MD at [facility] INJECTION STEROID EPI 1 WITH SEDATION Right L 4, 5 NR Right 03/17/2019 Performed by Arnulfo Gonzalez MD at [facility] INJECTION STEROID EPI 1 WITH SEDATION: right L45 nroot Right 08/15/2018 Performed by Arnulfo Gonzalez MD at [facility] LEFT L4, AND 5 NERVE ROOT INJECTION 2 OF 2 Left 07/22/2018 Performed by Arnulfo Gonzalez MD at [facility] LEFT L4, AND L5 NERVE ROOT 1 OF 2 Left 07/04/2018 Performed by Arnulfo Gonzalez MD at [facility] SHUNT INSERTION TONSILLECTOMY AGE 4 Transcutaneous aortic valve replacement/Transfemoral/Kwan N/A 08/17/2023 Performed by Chava Norris MD at [facility] Valvuloplasty aortic N/A 06/03/2023 Performed by Chava Norris MD at [facility] Past Medical History: Diagnosis Date Anemia Arthritis Asthma very mild, no inhaler use Cataract Dental disease Depression Diabetes mellitus (CMS-HCC) Diabetes mellitus type 2, controlled [place] [place] Encephalitis Foot fracture, left GERD (gastroesophageal reflux disease) Heart murmur HLD (hyperlipidemia) Hypertension Incontinence Injury of back Insulin dependent diabetes mellitus Kidney failure STAGE 4 Lumbar spondylolysis Murmur Obesity CHELSEA (obstructive sleep apnea) no machine Peptic ulceration Peripheral vascular disease Shortness of breath St[place] [place] TIA (transient ischemic attack) Upper respiratory infection UTI (urinary tract infection) Visual impairment Wears dentures OT Treatment/Interventions: ADL retraining, Functional transfer training, UE strengthening/ROM, Endurance training, Cognitive reorientation, Patient/family training, Equipment eval/education, Home management, Balance, Compensatory technique education, Functional activities OT Frequency: 4-5days/week OT Duration: 10 days Assessment Patient Assessment Therapy Problem List: Decreased ADL status, Decreased balance, Decreased cognition, Decreased endurance, Decreased high-level ADLs, Decreased mobility, Decreased safe judgement during ADL, Decreased self-care trans, Decreased UE strength Patient Response to Treatment: Tolerated evaluation without adverse reaction Mood/Affect: Appropriate for circumstances Rehab Prognosis: Fair, Guarded, With continued OT status post acute discharge Visit RN Communication: Yes Medical Record Reviewed: Yes OT Type of Visit: Evaluation Precautions Activity: early mobility pass, OK to eval per Ileana PIERRE Equipment: pure whick, telesitter, bed and chair alarm, standard walker, gait belt, IV/midline Weight Bearing Status: WBAT Telemetry/Hospitality House Supervisor: Yes Oxygen Used: room air Other: fall risk Subjective Occupational Therapy Comments: I think that I am going home soon Pain Assessment Pain Assessment: 0-10 Pain Score: 3 (no pain at rest) Pain Location: Hip Pain Orientation: Right Pain Intervention(s): Repositioned, Emotional support Home Living Type of Home: House Home Layout: One level Stairs to Enter: ramp in the garage Stairs in Home: 0 Bathroom Shower/Tub: Tub/shower unit Bathroom Toilet: Raised Bathroom Equipment: Shower chair, Grab bars in shower, Grab bars around toilet (reports that she hasn't taken a shower lately) Home Equipment: 4 Wheeled walker, Wheelchair-manual, Hospital bed (reports daughter plans to get lift chair) Prior Function Lives With: Daughter (and grandson and grandson- born a female , 18- he does not work, on the disability list . dafannyther does not work she is on disability) Receives Help From: Family Level of Mobility: Needs assistance with ADLs or functional transfers or gait (reports that she needed assist to stand from surfaces. independent with dressing, limited sponge bathing. reports independent with toileting and ambulation with rollator. uses wheelchair in the community- reports she has notbeenoutof thehouseforalongtime) Homemaking Assistance: Needs assistance (daugther and grandson completes all IADLS, groceries are being delivered) ADL / IADL Hand Dominance: Right Eating Assistance: Setup Grooming Assistance: Standby assist (seated on edge of bed) Bathing/Showering Assistance: Mod assist Bathing/Showering Deficit: Right lower leg including foot, Left lower leg including foot, Left upper leg, Right upper leg, Buttocks, Perineal area, Increased time to complete , Supervision/safety, Verbal cueing, Steadying Toilet/Commode Assistance: Total assist (pure whick) Toilet/Commode Deficit: Perineal hygiene, Clothing management down, Clothing management up UE Dressing Assistance: Min assist (don./dofs clean gown) LE Dressing Assistance: Total assist LE Dressing Deficit: Don/doff brief Footwear Assistance: Mod assist Footwear Deficit: R sock (due to pain) Other: senior underwriter introduced slef role and goals, senior underwriter zulma with patient. patient agreeable to eval. completes sponge bath while seated on edge of bed, changes gown once seated in chair. brekfast tray arrives and session terminated Home Management - IADL Other: senior underwriter introduced slef role and goals, senior underwriter cadyar with patient. patient agreeable to eval. completes sponge bath while seated on edge of bed, changes gown once seated in chair. brekfast tray arrives and session terminated Hearing / Speech / Vision Hearing: Within Functional Limits Speech: Within Functional Limits Current Vision: Wears glasses all the time Cognition Orientation Level: Oriented to age, Oriented to month, Oriented to person, Oriented to time, Oriented to place, Oriented to situation Sensation Overall Sensation Status: (denies numbness and tingling) Bed Mobility Supine to Sit: Mod assist, Max assist (assist for R LE management , head of bed elevated and use of bed rail) Other: remains in chair at end of session , call light with in reach, ed to use call light, alarm on Transfers Sit to Stand: Min assist, Mod assist, Verbal cues (pulls up on walker in the middle despite cues for hand placement) Stand to Sit: Mod assist, Visual cues (for slow descent) Bed to Chair: Mod assist Stand Pivot Transfers: Mod assist Other: completes stand pivot from edge of bed to chair with mod assist and use of walker in order to increase strength and endurance as pt prepares for return to community, elevated hear rate to 124 during transfer Balance Sitting Balance: Static: Good Sitting Balance: Dynamic: Fair, Poor Standing Balance: Static: Fair, Poor Standing Balance: Dynamic: Poor RUE Assessment: (grossly 3+/5) LUE Assessment: (grossly 3+/5) Activity Tolerance Endurance: Tolerates <30 minutes activity WITHOUT vital sign changes Pre-Activity SpO2: 98 % During Activity SpO2 : 88 % Post-Activity SpO2: 90 % Other: dyspena with exertion , cues for pure sip breathing, after transfer pt states that was hard Plan Occupational Therapy Care Plan Occupational Therapy Care Plan (Active) Template: OT - Occupational Therapy Problem: Other (Customize) Dates: Start: 05/15/25 Disciplines: OT Goal: Improve Dates: Start: 05/15/25 Expected End: 05/24/25 Description: Goal Description:Patient to increase IND in ADls to min assist for lower body and supervision for upper body using AE as needed with supervision for toielting tasks in order to promote return to prior level of function Disciplines: OT Problem: Standing Balance Dates: Start: 05/15/25 Disciplines: OT Goal: Improve balance to good Dates: Start: 05/15/25 Expected End: 05/24/25 Description: Patient to increase standing balance to good in order to increase IND in ADLS and lower body dressing tasks Disciplines: OT Problem: Strength Dates: Start: 05/15/25 Disciplines: OT Goal: Improve strength Dates: Start: 05/15/25 Expected End: 05/24/25 Description: Of extremity/ location:pt to increase BUE strength to 4/5 to assist with increased independence in ADL tasks To facilitate: Disciplines: OT Occupational Therapy Care Plan (Resolved) There are no resolved problems. Principal Problem: Acute respiratory failure with hypoxia (CMS-HCC) Active Problems: 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 mellitus ([facility] [place] Mixed diabetic hyperlipidemia associated with type 2 diabetes mellitus ([facility] [place]) Obstructive sleep apnea syndrome Essential (primary) hypertension Acute on chronic diastolic congestive heart failure ([facility] [place] Stage 3b chronic kidney disease ([facility] [place] Type 2 diabetes mellitus with diabetic chronic kidney disease ([facility] [place] Iron deficiency anemia Hypomagnesemia Closed fracture of right hip ([facility] [place]) Nondisplaced fracture of lesser trochanter of right femur, initial encounter for closed fracture ([facility] [place]) DISCHARGE PLANNING NOTE Cuca Goodwin PT/OT reminded via secure chat that we need PT/OT notes to submit for SNF insurance authorization. Patient Discharge Plan: [facility] (accepted) and pending insurance authorization. Can't submit until we have PT/OT evaluation and recommendation. Patient is WBAT. Plan of Care: [facility] (SNF) [phone] Fax CRF at Discharge Follow up appointments: Orthopedics would like to see patient in two weeks. This was added to AVS for SNF to schedule for patient. - Purvi Cardenas RN 05/15/25 8:35 AM PT and OT notes completed. Tasked pre-certification team to begin insurance authorization for patient to go to [place]. Patient Discharge Plan: [facility] (accepted) and pending insurance authorization. Plan of Care: [facility] (SNF) [phone] Fax CRF at Discharge Follow up appointments: Orthopedics would like to see patient in two weeks. This was added to AVS for SNF to schedule for patient. - Purvi Cardenas RN 05/15/25 12:58 PM Insurance authorization received. Provider placed discharge order. Preadmission Screening & Resident Review (PASSR) PASSR completed via the [employer] ([employer] Electronic Notification System) ODM 7857 (short form) completed and submitted? yes Is a Level II Evaluation required? no SNF notified on [facility] of PASSR completion. yes CRF sent via [facility] yes Patient Discharge Plan: [facility] (accepted) and insurance authorization received. Plan of Care: [facility] (SNF) [phone] Fax CRF at Discharge Follow up appointments: Orthopedics would like to see patient in two weeks. This was added to AVS for SNF to schedule for patient. - Purvi Cardenas RN 05/15/25 2:51 PM Problem: Safety Goal: Patient will be injury free during hospitalization Description: INTERVENTIONS: 1. Assess patient's risk for falls and implement fall prevention plan of care per policy 2. Provide and maintain a safe environment 3. Proper use of double Identifiers 4. Medication administration using the 5 rights 5. Hand hygiene 6. Specimens are labeled at the bedside 7. Instruct patient/ patient sales account representative about use of safety devices 8. Include patient/ patient sales account representative in decisions related to safety Outcome: Progressing Note: Evaluation of progress towards goal: Mobility - bedrest, to be seen by PT. No injury/ trauma/ fall. Hourly rounds completed. Problem: Activity Intolerance/Impaired Mobility Goal: Mobility/activity is maintained at optimum level for patient Description: Patient's goal is: INTERVENTIONS 1. Assess and monitor patient barriers to mobility and need for assistive/adaptive devices 2. Assess patient's emotional response to limitations 3. Collaborate with interdisciplinary teams and initiate plans and interventions as ordered 4. Encourage independent activity per tolerance 5. Maintain proper body alignment 6. Perform active/passive ROM as tolerated/ordered 7. Coordinate activities to conserve energy 8. Reposition patient 9. Ensure adequate rest/sleep time Outcome: Progressing Note: Evaluation of progress towards goal: Case of right hip fracture, non surgical management, bed rest overnight. Problem: Neurosensory - Adult Goal: Achieves stable or improved neurological status Description: Patient's goal is: INTERVENTIONS 1. Assess for and report changes in neurological status 2. Initiate measures to prevent increased intracranial pressure 3. Maintain blood pressure and fluid volume within ordered parameters to optimize cerebral perfusion and minimize risk of hemorrhage 4. Monitor temperature, glucose, and sodium. Initiate appropriate interventions as ordered Outcome: Progressing Note: Evaluation of progress towards goal: GCS - 14, confused, alert to self, current on tele sitter. Problem: Cardiovascular - Adult Goal: Absence of cardiac dysrhythmias or at baseline Description: INTERVENTIONS: 1. Continuous cardiac monitoring, monitor vital signs, obtain 12 lead EKG as ordered 2. Monitor for therapeutic effect/ side effects and safely 3. Administer antiarrhythmic and heart rate control medications as ordered 3. Initiate emergency measures for life threatening arrhythmias 4. Monitor labs and administer replacement/adjust therapy as ordered Outcome: Progressing Note: Evaluation of progress towards goal: EKG - NSR , denies any cardiac related complaints. Problem: Respiratory - Adult Goal: Achieves optimal ventilation and oxygenation Description: Patient's goal is: INTERVENTIONS: 1. Assess for changes in respiratory status 2. Assess for changes in mentation and behavior 3. Position to facilitate oxygenation and minimize respiratory effort 4. Oxygen supplementation based on oxygen saturation or ABGs as ordered 5. Consult smoking cessation as indicated 6. Encourage broncho-pulmonary hygiene including cough, deep breathe, Incentive Spirometry, keep HOB elevated as tolerated, and encourage ambulation, as ordered 7. Assess the need for suctioning and obtain order to maintain clear airway 8. Assess and instruct patient to report SOB or any respiratory difficulty 9. Assess the need for Respiratory Therapy support if not already ordered 10. Initiate emergency measures for respiratory failure Outcome: Progressing Note: Evaluation of progress towards goal: Currently on room air but restarted NC 2 LPM due to low saturation 88-89% during asleep, breath sounds diminished, not in respiratory distress. ET nurse note: ET seen patient for a Cale score of 16. Initial ET skin assessment completed. Patient has excoriation to groin. Cleanse with soap and water then pat dry daily then apply antifungal powder. Remaining pressure points clear. Skin protocols on chart. Continue to follow wound care order set and turn patient every 2 hours. No additional concerns at this time. Please consult Wound Care Services with any new skin concerns. Dr. Joiner notified of this patient Patient has not established care with Dr. Joiner. Dr. Sb rutledge would like us to continue medical care of this patient during hospital stay Occupational Therapy OT Type of Visit: Medical deferral Reason For Medical Deferral: Provider input needed OT defers eval due to nondisplaced fracture of lesser trochanter of R femur, await ortho for WB status to ensure safe completion of ADL tasks. OT to continue to follow. Images from the original note were not included. Discharge Planning Assessment Cuca Goodwin Admit Status: Inpatient Meet: Yes Readmission Risk: 31%. Date of Admission: 05/13/2025 GMLOS: 4.6 days Target Discharge Date: 05/17/2025 Discharge Planning Assessment completed at bedside and via phone with patient's daughter, Ismael. Aged Or Disabled Carer identified self and role to the patient. Patient and Ismael are agreeable to the assessment and discussion of a safe discharge plan. Initial Assessment Flowsheet Row Most Recent Value Patient Information Initial Pre-Hospitalization Assessment Completed? Completed Primary Caregiver Self [Pt said Ileana helps her ambulate to BR with walker. She states she dresses herself.] Discharge Planning Living Arrangements Adult Child(cole) [Lives with daughter, Ismael and grandchild] Assistance Needed Patient is alert and able to answer questions. However, she has a telesitter because she has been pulling out her IV's. She staets she lives at home with her daughter, Ismael and grandchild. She ambulates to BR with a walker and she states that recently Ismael has been assisting her. She states she dresses herself and there was concern that patient had the same clothes on for 3 days when she presented to the ER. She has some excoriation to the breast, abdominal fold and matthew area. Nursing states that she required a bed bath upon arrival to unit as she had a foul odor. Aged Or Disabled Carer spoke with daughter, Ismael. She is agreeable to skilled care after discharge. Ismael staes that patient now has Medicaid so they will not need to worry about a copay any longer. Lengthy discussion with daughter, Ismael regardin gnursing concerns of yeast type rash and no change in clothes for 3 days and her foul odor. Ismael states that her mother is refusing to shower at home and refusing to change her clothes. She states they were just approved for an aid through [employer]. However, there is no aid availability to send into the home yet. Aged Or Disabled Carer discusses with Ismael that we will haev furhter discussion with patient as well as hygiene can impact health an if she is unable to properly care for herself than we may need to consider protection services. However, at this time dishcarge is planned for SNF. Type of Residence Private residence Private Residence 1 story Can patient reside on one level? Yes Residence Accessibility Steps into home Number of Steps 1 Home Care Services No Type of Home Care Services Nurse visit Community Agencies Currently Utilized [employer] [[employer] field case manager and they plan to send an aid when they have availability.] Community Referrals / Resources Provided Denies needs Who is the existing DME Provider? [employer] ([employer]) ) Established DME Comments Walker, shower chair, and home oxygen at 2 liters Stressors Income Information Income Information Retired/Pension/Social Security IP Hunger/Food Insecurity Screening Within the past 12 months we worried whether our food would run out before we got money to buy more. Never True Within the past 12 months the food we bought just didn't last and we didn't have money to get more. Never True Hunger Screening Complete? Yes Pt. Eligible for Food / Voucher No If Eligible: Received Food Box Not Offered to Patient Warm Handoff Complete Caregiver/Family Member Caregiver/Family Member Ismael notified via phone Caregiver/Family Member Involved with Current Plan of Care Yes Caregiver/Family Member in Agreement with Current Plan of Care Yes Caregiver/Support System Limitations Patient/Caregiver Goals Community Provider Referral Services Requested Patient expects to be discharged to: alf care Does the patient wish to have family/friend/caregiver involved in their discharge planning? Yes Does the patient plan to return home to a community setting? No, patient to discharge to facility-based provider. See Discharge Disposition Discharge Disposition SNF Who is the existing DME Provider? [employer] ([employer]) ([phone]) Does the patient need discharge transportation arranged? Yes Transportation Arranged Ambulance Patient choice offered Patient declined List Provided Patient declined Patient Declined Other (must state reason) [Patient states she only wants to go to [place]] DC Planning Complete Discharge Milestones Yes [facility]: [facility] PCP: [facility] Providers this admission: Orthopedics for fracture Patient will make her own follow up appointments: no To be made by [facility] Patient Goals: Goals per daughter and patient to SNF (pt-stated) Evaluation of progress towards goal: Patient and daughter agree she will need skilled care as a result of the fracture she has. PT Recommends: Pending evaluation OT Recommends: Pending evaluation Patient denies need for alf facility list. She states she will not ever go to [facility] again. She will only go to [facility]. Tasked transition team to send referral. Plan to prevent readmission: To alf facility. As above lengthy discission with patient and daughter regarding the need for patient to be clean at home and take her showers and change her clothes. Patient/Family do not endorse any questions at this time. Patient Discharge Plan: [facility] (accepted) and pending insurance authorization. Can't submit until we have PT/OT evaluation and recommendation. Patient is WBAT. Plan of Care: [facility] (SNF) [phone] Fax CRF at Discharge Follow up appointments: Orthopedics would like to see patient in two weeks. This was added to AVS for SNF to schedule for patient. Purvi Cardenas RN 05/14/25 1:25 PM DISCHARGE PLANNING NOTE Referral sent to. [facility]/ [facility], [place], [place] (P# ; F# ) Physical Therapy PT Type of Visit: (P) Medical deferral Reason For Medical Deferral: (P) Provider input needed (Await ortho consult for weightbearing status.) PT will continue to follow this patient. RN aware that therapy awaits weightbearing status. Thank you for this referral. Problem: Pain Goal: Patient goal is pain score less than 4, able to rest, and participant in treatment plan as appropriate Description: INTERVENTIONS: 1. Encourage patient or legal sales account representative to report early pain and ask for pain medicine when needed 2. Assess pain using appropriate pain scale and include the scale used when documenting 3. Administer analgesics based on type and severity of pain and evaluate response within appropriate time frame 4. Implement non-pharmacological measures as appropriate and evaluate response 5. Consider cultural and social influences on pain and pain management 6. Notify LIP if interventions ineffective or patient reports new pain 7. Monitor vital signs including pulse ox, end-tidal CO2 based on pain intervention 8. Reassess pain per policy 9. Teach patient or legal sales account representative interventions for comforting Outcome: Progressing Note: Evaluation of progress towards goal: Pt able to report pain according to 0/10 pain scale. Medicating patient for pain per orders. Problem: Safety Goal: Patient will be injury free during hospitalization Description: INTERVENTIONS: 1. Assess patient's risk for falls and implement fall prevention plan of care per policy 2. Provide and maintain a safe environment 3. Proper use of double Identifiers 4. Medication administration using the 5 rights 5. Hand hygiene 6. Specimens are labeled at the bedside 7. Instruct patient/ patient sales account representative about use of safety devices 8. Include patient/ patient sales account representative in decisions related to safety Outcome: Progressing Note: Evaluation of progress towards goal: Safety measures initiated/maintained. Pt remains safe from harm/injury/falls Problem: Infection Goal: Absence of infection during hospitalization Description: INTERVENTIONS 1. Assess and monitor for signs and symptoms of infection. 2. Monitor lab/diagnostic results. 3. Monitor all insertion sites i.e., indwelling lines, tubes and drains. 4. Monitor endotracheal (as able) and nasal secretions for changes in amount and color. 5. Administer medications as ordered. 6. Instruct and encourage patient and family to use good hand hygiene technique. 7. Identify and instruct patient/patient sales account representative in use of appropriate isolation precautions for identified infection/symptoms. 8. Provide and discuss with patient/patient sales account representative on educational MDRO sheet. 9. Encourage and monitor nutritional status daily and consult senior linux systems administrator if indicated. 10. Implement neutropenic guidelines as needed. Outcome: Progressing Note: Evaluation of progress towards goal: Pt afebrile at this time, continue to monitor for signs infection Problem: Knowledge Deficit Goal: Patient/patient sales account representative demonstrates understanding of disease process, treatment plan, medications, and discharge instructions Description: INTERVENTIONS 1. Complete learning assessment and assess knowledge base 2. Provide teaching at level of understanding 3. Provide teaching via preferred learning method(s) Outcome: Progressing Note: Evaluation of progress towards goal: Evaluate, educate, reinforce learning needs and gaps t/o shift. Problem: Discharge Planning Goal: Discharge to post-acute care, other facility, or home with appropriate resources Description: Patient's goal is: INTERVENTIONS 1. Conduct assessment to determine patient/family and health care team treatment goals, and need for post-acute services based on payer coverage, community resources, and patient preferences, and barriers to discharge 2. Coordinate with Social work, Care Navigation, and Utilization Review to arrange appropriate level of services according to patient's needs based on patient preference and payer coverage in collaboration with the physician and health care team 3. Address psychosocial, clinical, and financial barriers to discharge as identified in assessment in conjunction with the patient/family and health care team 4. Consult appropriate ancillary services (i.e.. PT/OT/ST, etc) as needed 5. Communicate with and update the patient/family, physician, and health care team regarding progress on the discharge plan 6. Identify discharge learning needs (meds, wound care, etc). 7. Arrange for needed discharge transportation as appropriate Outcome: Progressing Note: Evaluation of progress towards goal: Continue to monitor t/o shift to assess for discharge needs. Problem: Readmission Risk Reduction Goal: Readmission Risk Assessment Description: Utilize readmission risk score in the development of discharge plan INTERVENTIONS: 1. Discuss patient's risk of readmission at multidisciplinary discharge transition rounds. 2. Comprehensive assessment of patient's risk of readmission (functional, psychosocial, cognitive). 3. Collaborate with patient / caregiver to identify needs. 4. Handoff to next level of care provider (respiratory care technician, PCP, home care). 5. Complete follow up phone call within 72 hours. Outcome: Progressing Note: Evaluation of progress towards goal: n/a Goal: Discharge Medication Plan Description: Develop a plan to ensure that medications are obtained at the time of discharge INTERVENTIONS: 1. Utilize outpatient pharmacy to deliver medications to patient prior to discharge, where available. 2. Ensure that prescriptions are sent to the patient's pharmacy of choice prior to patient leaving the hospital. If possible, confirm authorizations and co-pays and communicate to patient. 3. During discharge follow-up phone call, confirm that prescriptions have been filled. Outcome: Progressing Note: Evaluation of progress towards goal: n/a Goal: Follow-Up Appointments Description: Schedule patient-centric follow-up appointments prior to discharge INTERVENTIONS: 1. Identify recommended / appropriate timeframes for follow-up. 2. Discuss transportation needs and scheduling preferences with patient. 3. Verify that all follow-up appointments are scheduled prior to discharge. Outcome: Progressing Note: Evaluation of progress towards goal: n/a Goal: Discharge Medication Reconciliation Description: Review discharge medication reconciliation for accuracy INTERVENTIONS: 1. Include last dose date / time on the discharge medication list. 2. Utilize available resources to identify and address issues. 3. Consider use of a Discharge Time-Out or Discharge Final Check. 4. Refer to homecare, as appropriate, for home medication review. Outcome: Progressing Note: Evaluation of progress towards goal: n/a Goal: Discharge Instructions Description: Provide accurate and complete discharge instructions, taking into account health literacy of the patient INTERVENTIONS: 1. Assess patient's learning needs including health literacy. 2. Provide disease-specific education as appropriate. 3. Consider use of teach-back to verify patient / caregiver understanding. 4. Verify understanding of discharge instructions. 5. Consider use of a Discharge Time-Out or Discharge Final-Check. Outcome: Progressing Note: Evaluation of progress towards goal: n/a Problem: Inadequate Airway Clearance Goal: Patient will maintain patent airway Description: INTERVENTIONS 1. Assess and monitor breath sounds, cough and sputum (if present) 2. Monitor respiratory rate and oxygen saturation 3. Collaborate with respiratory therapy to administer medication, oxygen, and suitable airway clearance techniques as ordered 4. Position patient for maximum ventilatory efficiency; elevate head of bed at least 30 degrees if appropriate 5. Provide adequate fluid intake to liquify secretions if appropriate 6. Suction secretions as indicated to maintain patent airway 7. Instruct patient to turn, cough, and deep breathe; encourage incentive spirometer if indicated Outcome: Progressing Note: Evaluation of progress towards goal: Pt is able to maintain a patent airway and breath sounds are clear. Continue to monitor. Problem: Inadequate Breathing Pattern Goal: Patient will achieve/maintain normal respiratory rate/effort Description: Patient's goal is: INTERVENTIONS 1. Assess and monitor respiratory rate, effort, breathing pattern, and oxygenation 2. Monitor patient for restlessness, anxiety, air hunger 3. Assess physical activity tolerance 4. Assess tobacco history; ask, advise, and refer as appropriate 5. Collaborate with interdisciplinary team and initiate plans/interventions as needed Outcome: Progressing Note: Evaluation of progress towards goal: Pt is able to maintain a patent airway and breath sounds are clear. Continue to monitor. Goal: Patient will maintain effective ventilation Description: Patient's goal is: INTERVENTIONS 1. Assess and monitor vital signs, respiratory status (to include respiratory rate, depth, effort, and breath sounds), oxygen saturation, oral mucosa, tongue, pain, and labs (ABGs). 2. Collaborate with interdisciplinary team and initiate plans and interventions as needed 3. Oxygen therapy as indicated 4. Position patient for maximum ventilatory efficiency 5. Instruct patient to turn, cough, and deep breathe; encourage incentive spirometer if indicated 6. Plan activities to conserve energy 7. Encourage ambulation/activity per patient's tolerance 8. Collaborate with patient/RT to administer medications/treatments 9. Monitor lab/diagnostic results Outcome: Progressing Note: Evaluation of progress towards goal: Pt is able to maintain a patent airway and breath sounds are clear. Continue to monitor. Problem: Anxiety Goal: Anxiety is at manageable level Description: Patient's goal is: INTERVENTIONS 1. Assess and monitor patient's anxiety level 2. Monitor for signs and symptoms of anxiety both physical and emotional (heart palpitations, chest pain, shortness of breath, headaches, nausea, feeling jumpy, restlessness, irritable, apprehensive) 3. Reorient/orient patient to unit/surroundings 4. Explain treatment plan 5. Explain tests/procedures prior to initiation 6. Encourage participation in care 7. Encourage verbalization of concerns/fears 8. Assess coping mechanisms 9. Assist in developing anxiety-reducing skills 10. Administer complimentary therapies 11. Manage patient's environment 12. Limit or eliminate stimulants such as caffeine and nicotine 13. Collaborate with ancillary departments 14. Include patient/patient sales account representative in decisions related to anxiety Outcome: Progressing Note: Evaluation of progress towards goal: Education and reassurance provided as needed to maintain a decreased level of fear/anxiety as needed. Problem: Activity Intolerance/Impaired Mobility Goal: Mobility/activity is maintained at optimum level for patient Description: Patient's goal is: INTERVENTIONS 1. Assess and monitor patient barriers to mobility and need for assistive/adaptive devices 2. Assess patient's emotional response to limitations 3. Collaborate with interdisciplinary teams and initiate plans and interventions as ordered 4. Encourage independent activity per tolerance 5. Maintain proper body alignment 6. Perform active/passive ROM as tolerated/ordered 7. Coordinate activities to conserve energy 8. Reposition patient 9. Ensure adequate rest/sleep time Outcome: Progressing Note: Evaluation of progress towards goal: Improved physical mobility. Assistive devices and safe patient handling equipment used according to pt situation. Problem: Inadequate Coping Goal: Demonstrates and verbalizes ability to cope effectively Description: Patient's goal is: INTERVENTIONS 1. Patient is able to verbalize feelings related to emotional state 2. Encourage verbalization of feelings, perceptions, fears, stressors, loss of loved ones 3. Encourage verbalization of problems out of their control 4. Encourage participation in care and self management 5. Inform patient of all treatment/care prior to providing care 6. Collaborate with pastoral/spiritual care, social security specialist, mental health counselor as needed. 7. Instruct patient on diversional activities such as physical activity, distraction, and deep breathing exercises to assist with coping 8. Involve patient's sales account representative in care Outcome: Progressing Note: Evaluation of progress towards goal: Pt able to verbalize feeling, and allowed time to verbalize feelings. Allowed participation in care and self management. Pt calm, cooperative, active and receptive to treatments. Continue to monitor. Problem: Moderate - High Risk Fall Score Description: Patel Fall Score of =/> 25 or indicated by [facility] Assessment Goal: Patient should be free from fall Description: Interventions: 1. Wheelwright to environment 2. Hourly rounds addressing the 4 P's (Pain, Positioning, Possessions, Potty) 3. Clear area of hazards (spills, clutter, electrical cords, unnecessary equipment) 4. Place equipment (bed & TV controls, call light, phone, urinal) within reach 5. Encourage patient to wear glasses and hearing aides as appropriate 6. Maintain bed in lowest position 7. Lock wheels on bed/wheelchair 8. Provide adequate lighting, including night light 9. Assess need for additional bedding, food/fluids, pain med's prior to sleep/routinely 10. Provide gripper slippers or personal non-skid footwear 11. Teach patient and patient sales account representative to maintain environment for safety and engage in all aspects of fall prevention program 12. Remind patient to call for help before getting out of bed 13. Initiate bed/chair/exit alarms supportive devices as appropriate, (chair wedge, no-skid floor mat, raised edge mattress, hip protectors) 14. Locate patient bed assignment for optimal visualization 15. Evaluate and identify Safe Patient Handling Equipment needs 16. Provide supervision when out of bed or chair 17. Utilize gait belt as needed to assist with ambulation 18. Place adaptive equipment (cane, walker) within reach 19. Request patient sales account representative bring adaptive equipment/mobility aids from home or obtain and provide as needed 20. Consult pharmacy regarding effects of med's affecting mobility, cognition, and alternatives 21. Obtain physician order for PT if risk factors associated with mobility are present 22. Obtain physician order for OT as appropriate 23. Utilize diversional activities 24. Educate patient and patient sales account representative how to maintain a safe environment during visitation times (notify nurse prior to leaving bedside) 25. Consider appropriateness of medical or non-back office medical assistant 26. Set up voiding schedule as appropriate (every 2 hours) Outcome: Progressing Note: Evaluation of progress towards goal: Pt remains free from falls or accidental injury during stay. Fall prevention measures in place. Hourly rounding per RN and maintained. Problem: Potential for Compromised Skin Integrity Goal: Skin integrity is maintained or improved Description: Patient's goal is: INTERVENTIONS 1. Perform initial skin assessment on admission and as needed 2. Turn patient every 2 hours and PRN 3. Relieve pressure to bony prominences 4. Avoid shearing 5. Keep skin clean and dry 6. Alternate a full bath with partial baths for elderly 7. Apply lotion/moisturizer on skin 8. Monitor patient's hygiene practices 9. Float heels 10. Collaborate with interdisciplinary team and initiate plans and interventions as needed Outcome: Progressing Note: Evaluation of progress towards goal: Maintain skin integrity and tissue integrity Goal: Patient's nutritional intake is adequate Description: Patient's goal is: INTERVENTIONS 1. Assess and monitor food intake and supplements, patient food preferences, nausea, vomiting, labs, oral cavity (gums, teeth, tongue, mucosa), proper denture fit, and cultural beliefs 2. Monitor for signs of hypoglycemia and hyperglycemia 3. Collaborate with interdisciplinary team and initiate plan and interventions as ordered 4. Monitor patient's weight 5. Assist patient with meals/food selection 6. Assist patient with eating 7. Allow adequate time for meals 8. Provide pleasant environment during mealtime 9. Increase social contact during mealtimes 10. Plan activities to conserve energy 11. Encourage/perform oral hygiene as appropriate 12. Encourage patient to take dietary supplement as ordered 13. Collaborate with clinical senior linux systems administrator 14. Include patient/ patient's sales account representative in decisions related to nutrition Outcome: Progressing Note: Evaluation of progress towards goal: Patient understands the importance of proper nutrition to aid in healing. Problem: Urinary Incontinence Goal: Perineal skin integrity is maintained or improved Description: INTERVENTIONS 1. Assess genitourinary system, perineal skin, labs (urinalysis), and history of incontinence to include past management, aggravating, and alleviating factors 2. Keep skin clean and dry 3. Apply skin protectant 4. Develop skin care regimen 5. Provide privacy when changing patients incontinence device to maintain their dignity 6. Consider placing an indwelling catheter 7. Collaborate with interdisciplinary team and initiate plans and interventions as needed Outcome: Progressing Note: Evaluation of progress towards goal: Perineal skin kept clean and dry, privacy provided as needed, skin protectant applied as needed, labs monitored. Problem: Pain Goal: Patient goal is pain score less than 4, able to rest, and participant in treatment plan as appropriate Description: INTERVENTIONS: 1. Encourage patient or legal sales account representative to report early pain and ask for pain medicine when needed 2. Assess pain using appropriate pain scale and include the scale used when documenting 3. Administer analgesics based on type and severity of pain and evaluate response within appropriate time frame 4. Implement non-pharmacological measures as appropriate and evaluate response 5. Consider cultural and social influences on pain and pain management 6. Notify LIP if interventions ineffective or patient reports new pain 7. Monitor vital signs including pulse ox, end-tidal CO2 based on pain intervention 8. Reassess pain per policy 9. Teach patient or legal sales account representative interventions for comforting Outcome: Progressing Note: Evaluation of progress towards goal: Pt taking PRN tylenol which has been effective per patient. Rated pain in right arm a 3/10 on a scale of 0-10 due to IV infiltration in ER previously per shift report. Problem: Safety Goal: Patient will be injury free during hospitalization Description: INTERVENTIONS: 1. Assess patient's risk for falls and implement fall prevention plan of care per policy 2. Provide and maintain a safe environment 3. Proper use of double Identifiers 4. Medication administration using the 5 rights 5. Hand hygiene 6. Specimens are labeled at the bedside 7. Instruct patient/ patient sales account representative about use of safety devices 8. Include patient/ patient sales account representative in decisions related to safety Outcome: Progressing Note: Evaluation of progress towards goal: Pt safety maintained and pt free from injury. Tele sitter at bedside due to patient taking off medical equipment for monitoring. Call light within reach. Problem: Infection Goal: Absence of infection during hospitalization Description: INTERVENTIONS 1. Assess and monitor for signs and symptoms of infection. 2. Monitor lab/diagnostic results. 3. Monitor all insertion sites i.e., indwelling lines, tubes and drains. 4. Monitor endotracheal (as able) and nasal secretions for changes in amount and color. 5. Administer medications as ordered. 6. Instruct and encourage patient and family to use good hand hygiene technique. 7. Identify and instruct patient/patient sales account representative in use of appropriate isolation precautions for identified infection/symptoms. 8. Provide and discuss with patient/patient sales account representative on educational MDRO sheet. 9. Encourage and monitor nutritional status daily and consult senior linux systems administrator if indicated. 10. Implement neutropenic guidelines as needed. Outcome: Progressing Note: Evaluation of progress towards goal: Pt receiving IV ATB. Problem: Pain Goal: Patient goal is pain score less than 4, able to rest, and participant in treatment plan as appropriate Description: INTERVENTIONS: 1. Encourage patient or legal sales account representative to report early pain and ask for pain medicine when needed 2. Assess pain using appropriate pain scale and include the scale used when documenting 3. Administer analgesics based on type and severity of pain and evaluate response within appropriate time frame 4. Implement non-pharmacological measures as appropriate and evaluate response 5. Consider cultural and social influences on pain and pain management 6. Notify LIP if interventions ineffective or patient reports new pain 7. Monitor vital signs including pulse ox, end-tidal CO2 based on pain intervention 8. Reassess pain per policy 9. Teach patient or legal sales account representative interventions for comforting Outcome: Progressing Note: Evaluation of progress towards goal: Pain assessed using appropriate pain scale and include the scale used when documenting. Administered analgesics based on type and severity of pain and evaluate response within appropriate time frame. Implemented non-pharmacological measures as appropriate and evaluate response. Problem: Safety Goal: Patient will be injury free during hospitalization Description: INTERVENTIONS: 1. Assess patient's risk for falls and implement fall prevention plan of care per policy 2. Provide and maintain a safe environment 3. Proper use of double Identifiers 4. Medication administration using the 5 rights 5. Hand hygiene 6. Specimens are labeled at the bedside 7. Instruct patient/ patient sales account representative about use of safety devices 8. Include patient/ patient sales account representative in decisions related to safety Outcome: Progressing Note: Evaluation of progress towards goal: Assessed patient's risk for falls and implemented fall prevention plan of care per protocol. Provided and maintained a safe environment. Used proper use of double Identifiers Problem: Infection Goal: Absence of infection during hospitalization Description: INTERVENTIONS 1. Assess and monitor for signs and symptoms of infection. 2. Monitor lab/diagnostic results. 3. Monitor all insertion sites i.e., indwelling lines, tubes and drains. 4. Monitor endotracheal (as able) and nasal secretions for changes in amount and color. 5. Administer medications as ordered. 6. Instruct and encourage patient and family to use good hand hygiene technique. 7. Identify and instruct patient/patient sales account representative in use of appropriate isolation precautions for identified infection/symptoms. 8. Provide and discuss with patient/patient sales account representative on educational MDRO sheet. 9. Encourage and monitor nutritional status daily and consult senior linux systems administrator if indicated. 10. Implement neutropenic guidelines as needed. Outcome: Progressing Note: Evaluation of progress towards goal: Isolation precautions followed per protocol. Equipment cleaned between patients. Handwashing protocol followed. documented in this encounter [facility] 05-15-2025 Hospital course Narrative Images from the original note were not included. [facility] [address] [facility] [id number] Hospital Medicine Discharge Summary Patient: Cuca Goodwin Date of : 1945 Room: Encounter date: 05/15/25 DATE OF ADMISSION: 05/13/2025 DATE OF DISCHARGE:05/15/2025 DISCHARGE DIAGNOSES Principal Problem: Acute respiratory failure with hypoxia [place] Active Problems: 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 mellitus ([facility] Mixed diabetic hyperlipidemia associated with type 2 diabetes mellitus ([facility] Obstructive sleep apnea syndrome Essential (primary) hypertension Acute on chronic diastolic congestive heart failure ([facility]) Stage 3b chronic kidney disease ([facility] Type 2 diabetes mellitus with diabetic chronic kidney disease ([facility] Iron deficiency anemia Hypomagnesemia Closed fracture of right hip ([facility] Nondisplaced fracture of lesser trochanter of right femur, initial encounter for closed fracture ([facility] CONSULTANTS None PCP: Pam Ley, 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 PROCEDURES None HOSPITAL COURSE SUMMARY Per HPI: Cuca Goodwin is a 79 y.o. female who presents with to ER for 4th day in a row. She has been evaluated for right hip pain 3 days in a row without clear etiology other than musculoskeletal pain. She refused admission yesterday. Pain is in the right hip and is worse with any movement. No neurological symptoms. CT of lumbar spine yesterday showed chronic L1 fracture with minimal worsening of retropulsion. EMS called to the home for the 3rd time today for right hip pain. Today the patient is significantly different today. She is weak and drowsy, reports shortness of breath and was requiring supplemental oxygen. She denies chest pain. No fever. Patient is dressed in the same clothing and wearing a soiled brief. She lives with her daughter and grandson but they don't currently have transportation. She has history of HTN, HLD, previous stroke, CKD, DM, chronic back pain, s/p TAVR, CAD post PCI 2022, severe post TAVR, NHP post shunt, recently admitted for staph bacteremia in February. Hypoxia is new today. Patient was not appear that she has been cared for home. She lives with her daughter but she arrived wearing the same clothes as yesterday and in a soiled brief. It does not appear that she was receiving any care at home. Because of the patient's tachycardia, lethargy, initial soft blood pressure and recent admission for bacteremia without a clear source, I work the patient up for sepsis and started her on empiric antibiotics. While patient was here she was initially treated with Zosyn and vancomycin for possible pneumonia. Patient has been agitated and pulled her IVs out in the not want another 1 placed. Antibiotics changed to doxycycline. Patient initially required oxygen at 2 L per nasal cannula which was weaned off after the 1st day. Patient states she does wear home oxygen for sleep because she does not like her CPAP machine. Patient has not required oxygen while awake since the day after admission. Intermittently requiring oxygen at bedtime. Patient refusing CPAP during admission. Patient he will be discharged to alf facility with 5 more days of doxycycline. Patient was also found to have some pulmonary vascular congestion in which Lasix was given 20 mg daily. Patient's seem to improve after initial dose of Lasix. We will continue Lasix 20 mg on discharge. Patient was also found to have iron-deficiency anemia in which we will continue ferrous sulfate on discharge. Patient did get BMP in 1 week due to initiation and continuation of Lasix. Patient also noted to have a nondisplaced hip fracture. Orthopedic surgery was consulted for this and deemed nonsurgical. Patient is weight-bearing as tolerated to right lower extremity. PT OT did see patient and recommended alf facility. Patient be discharged to alf facility today. Clinical concern for sepsis, no-sepsis ruled out. 05/15/25, Hospital Day: 3 Interval History: Status: improved. No overnight events or new complaints. No longer requiring oxygen. Pain better controlled. Review of Systems Constitutional: Negative for activity change, appetite change, fatigue and unexpected weight change. HENT: Negative for trouble swallowing. Respiratory: Negative for cough, sputum production, shortness of breath and wheezing. Cardiovascular: Negative for chest pain, palpitations and leg swelling. Gastrointestinal: Negative for abdominal pain, blood in stool, melena, constipation, diarrhea, nausea and vomiting. Genitourinary: Negative for difficulty urinating. Musculoskeletal: Positive for arthralgias and gait problem. Skin: Negative for color change and wound. Neurological: Negative for dizziness, seizures, speech difficulty and headaches. Psychiatric/Behavioral: Negative for sleep disturbance. Physical Exam BP 121/72 Pulse 98 Temp 36.7 C (98.1 F) (Oral) Resp 16 Ht 165.1 cm (5' 5 ) Wt 84.3 kg (185 lb 13.6 oz) LMP (LMP Unknown) SpO2 94% BMI 30.93 kg/m Intake/Output Summary (Last 24 hours) at 05/15/2025 1724 Last data filed at 05/15/2025 1328 Gross per 24 hour Intake 1300 ml Output 1000 ml Net 300 ml Constitutional: General: No acute distress. Cardiovascular: Rate and Rhythm: Normal rate and regular rhythm. Heart sounds: Normal heart sounds, S1 normal and S2 normal. Pulmonary: Effort: Pulmonary effort is normal. Breath sounds: Normal breath sounds. Musculoskeletal: General: Tenderness (Right hip) present. Right lower leg: Edema (1+) present. Left lower leg: Edema (1+) present. Lymphadenopathy: Cervical: No cervical adenopathy. Skin: General: Skin is warm and dry. Capillary Refill: Capillary refill takes less than 2 seconds. Neurological: Mental Status: She is alert and oriented to person, place, and time. Motor: Weakness (Lower extremity) present. Gait: Gait abnormal. Psychiatric: Mood and Affect: Mood normal. Behavior: Behavior normal. Labs Recent Results (from the past 48 hours) Extra Tubes Collection Time: 05/13/25 7:54 PM Narrative The following orders were created for panel order Extra Tubes. Procedure Abnormality Status --------- ------ PST TOP[[id number]] Final result Please view results for these tests on the individual orders. PST TOP Collection Time: 05/13/25 7:54 PM Result Value Ref Range Extra Tube Auto Resulted APTT Collection Time: 05/13/25 7:55 PM Result Value Ref Range APTT 30 26 - 37 sec Hemoglobin Collection Time: 05/13/25 7:55 PM Result Value Ref Range Hemoglobin 11.5 (L) 11.7 - 15.5 g/dL Platelet count Collection Time: 05/13/25 7:55 PM Result Value Ref Range Platelet Count 214 150 - 450 X10E9/L MPV 8.3 7 - 12 fL Bedside Glucose *Place/Obtain serum glucose if >500 per glucometer. Collection Time: 05/13/25 9:31 PM Result Value Ref Range Bedside Glucose (POC) 256 (H) 65 - 99 mg/dL CBC auto differential Collection Time: 05/14/25 4:13 AM Result Value Ref Range WBC 7.6 4 - 11 x10E9/L RBC Count 3.65 (L) 3.8 - 5.2 X10E12/L Hemoglobin 10.3 (L) 11.7 - 15.5 g/dL Hematocrit 30.6 (L) 35 - 47 % MCV 84 80 - 100 fL MCH 28.1 27 - 34 pg MCHC 33.5 32 - 36 g/dL RDW 15.5 (H) 11.5 - 15 % Platelet Count 166 150 - 450 X10E9/L MPV 8.7 7 - 12 fL Neutrophils % 55.9 % Lymphocytes % 23.9 % Monocytes % 12.9 % Eosinophils % 6.6 % Basophils % 0.7 % Neutrophils Absolute (A) 4.2 1.5 - 6.6 10*3/uL Lymphocytes Absolute 1.8 1.0 - 3.5 10*3/uL Monocytes Absolute 1.0 (H) 0.0 - 0.9 10*3/uL Eosinophils Absolute 0.5 (H) 0.0 - 0.4 10*3/uL Basophils Absolute 0.1 0.0 - 0.2 10*3/uL Differential Type AUTOMATED DIFFERENTIAL Comprehensive metabolic panel Collection Time: 05/14/25 4:14 AM Result Value Ref Range SODIUM 139 134 - 146 mmol/L POTASSIUM 4.4 3.5 - 5.0 mmol/L CHLORIDE 108 98 - 109 mmol/L CARBON DIOXIDE 22 22 - 32 mmol/L ANION GAP 9 5 - 15 mmol/L BLOOD UREA NITROGEN 27 5 - 27 mg/dL CREATININE 1.30 (H) 0.40 - 1.00 mg/dL GLUCOSE 148 (H) 65 - 99 mg/dL CALCIUM 9.0 8.5 - 10.5 mg/dL TOTAL PROTEIN 6.6 6.0 - 8.0 g/dL ALBUMIN 2.9 (L) 3.2 - 5.3 g/dL ALKALINE PHOSPHATASE 128 39 - 130 U/L AST 23 <=41 U/L ALT 14 <=31 U/L BILIRUBIN,TOTAL 0.6 0.3 - 1.2 mg/dL EGFR Non-Race Dependent 42 (L) >=60 ml/min/1.73sq.m Magnesium Collection Time: 05/14/25 4:14 AM Result Value Ref Range MAGNESIUM 1.6 (L) 1.8 - 2.6 mg/dL Bedside Glucose *Place/Obtain serum glucose if >500 per glucometer. Collection Time: 05/14/25 11:26 AM Result Value Ref Range Bedside Glucose (POC) 223 (H) 65 - 99 mg/dL Bedside Glucose *Place/Obtain serum glucose if >500 per glucometer. Collection Time: 05/14/25 4:28 PM Result Value Ref Range Bedside Glucose (POC) 308 (H) 65 - 99 mg/dL Magnesium Collection Time: 05/14/25 7:14 PM Result Value Ref Range MAGNESIUM 2.1 1.8 - 2.6 mg/dL Bedside Glucose *Place/Obtain serum glucose if >500 per glucometer. Collection Time: 05/14/25 9:01 PM Result Value Ref Range Bedside Glucose (POC) 286 (H) 65 - 99 mg/dL Extra Tubes Collection Time: 05/15/25 5:11 AM Narrative The following orders were created for panel order Extra Tubes. Procedure Abnormality Status --------- ------ SST TOP[[id number]] Final result Please view results for these tests on the individual orders. SST TOP Collection Time: 05/15/25 5:11 AM Result Value Ref Range Extra Tube Auto Resulted Comprehensive metabolic panel Collection Time: 05/15/25 5:12 AM Result Value Ref Range SODIUM 136 134 - 146 mmol/L POTASSIUM 4.6 3.5 - 5.0 mmol/L CHLORIDE 102 98 - 109 mmol/L CARBON DIOXIDE 26 22 - 32 mmol/L ANION GAP 8 5 - 15 mmol/L BLOOD UREA NITROGEN 22 5 - 27 mg/dL CREATININE 1.20 (H) 0.40 - 1.00 mg/dL GLUCOSE 152 (H) 65 - 99 mg/dL CALCIUM 9.4 8.5 - 10.5 mg/dL TOTAL PROTEIN 7.0 6.0 - 8.0 g/dL ALBUMIN 2.9 (L) 3.2 - 5.3 g/dL ALKALINE PHOSPHATASE 125 39 - 130 U/L AST 17 <=41 U/L ALT 14 <=31 U/L BILIRUBIN,TOTAL 0.6 0.3 - 1.2 mg/dL EGFR Non-Race Dependent 46 (L) >=60 ml/min/1.73sq.m Magnesium Collection Time: 05/15/25 5:12 AM Result Value Ref Range MAGNESIUM 2.0 1.8 - 2.6 mg/dL CBC auto differential Collection Time: 05/15/25 5:12 AM Result Value Ref Range WBC 8.6 4 - 11 x10E9/L RBC Count 3.62 (L) 3.8 - 5.2 X10E12/L Hemoglobin 10.1 (L) 11.7 - 15.5 g/dL Hematocrit 30.0 (L) 35 - 47 % MCV 83 80 - 100 fL MCH 27.8 27 - 34 pg MCHC 33.5 32 - 36 g/dL RDW 15.5 (H) 11.5 - 15 % Platelet Count 196 150 - 450 X10E9/L MPV 8.7 7 - 12 fL Neutrophils % 66.3 % Lymphocytes % 19.9 % Monocytes % 9.9 % Eosinophils % 3.4 % Basophils % 0.5 % Neutrophils Absolute (A) 5.7 1.5 - 6.6 10*3/uL Lymphocytes Absolute 1.7 1.0 - 3.5 10*3/uL Monocytes Absolute 0.8 0.0 - 0.9 10*3/uL Eosinophils Absolute 0.3 0.0 - 0.4 10*3/uL Basophils Absolute 0.0 0.0 - 0.2 10*3/uL Differential Type AUTOMATED DIFFERENTIAL Bedside Glucose *Place/Obtain serum glucose if >500 per glucometer. Collection Time: 05/15/25 11:01 AM Result Value Ref Range Bedside Glucose (POC) 320 (H) 65 - 99 mg/dL Radiology CT brain without contrast Result Date: 05/14/2025 [...] 1. No acute change. Finalized by Berry Chavez MD on 05/13/2025 11:[address] lumbar [...] valve replacement. The distal portion of a SENIOR TAX ANALYST shunt is seen within the abdomen. Again [...] ovarian. There is partial visualization of a SENIOR TAX ANALYST shunt and changes of aortic valve replacement. All CT scans at this facility use dose modulation, iterative reconstruction, and/or weight based dosing when appropriate to reduce radiation dose to as low as reasonably achievable. Finalized by Laci Lima MD on 05/12/2025 12:37 PM X-ray spine lumbar 2 or 3 views Result Date: 05/11/2025 Narrative: XR SPINE LUMBAR 2 OR 3 VWS [...] Suárez MD on 05/11/2025 2:28 AM I, Giovanny Zheng MD have personally reviewed the image(s) and agree with and/or edited the report Finalized by Giovanny Zheng MD on 05/11/2025 2:32 AM X-ray chest 1 view Result Date: 04/28/2025 Narrative: XR CHEST 1 VW Clinical Information: ams Comparison: 03/16/2025. IMPRESSION: * Tubing overlying the right chest. No acute cardiopulmonary disease. Stable heart size. Old rib deformities. Prosthetic cardiac valve. Finalized by Joie Ellsworth MD on 04/28/2025 12:[address] brain without contrast Result Date: 04/28/2025 Narrative: CLINICAL HISTORY: Transient alteration in awareness. TECHNIQUE: Spiral CT of the brain was performed without contrast material. All CT scans at this facility use dose modulation, iterative reconstruction, and/or weight based dosing when appropriate to reduce radiation dose to as low as reasonably achievable. COMPARISONS: 02/12/2025. FINDINGS: Right frontal ventriculostomy unchanged with tip at midline near foramina of Castillo similar to prior exam. Some surrounding encephalomalacia about the ventriculostomy is stable. Encephalomalacia mesial left occipital lobe is unchanged likely reflecting remote infarct. The brain otherwise appears within normal limits in morphology and attenuation for the patient's stated age of 79 years. There is no intracranial mass nor mass effect. Ventricular system appears within normal limits. Basal cisterns and fourth ventricle appear patent. No parenchymal nor extra-axial hemorrhage is identified. Calvarium appears intact. IMPRESSION: No acute intracranial finding. No significant interval change. Finalized by Radha Sorenson MD on 04/28/2025 11:34 AM DISCHARGE ASSESSMENT & PLAN Doxycycline 100 mg b.i.d. Lasix 20 mg daily. Ferrous sulfate daily. DISCHARGE INSTRUCTION Disposition: ECF Condition: Good Activity: activity as tolerated Diet: Adult diet Regular Texture; Consistent Carb 210 grams (1800 kcal) Adult nutrition supplements Adult diet Follow up: KAIDEN Werner within 7-14 days. Labs/Imaging/Pathology: Metabolic panel in 1 week Discharge Medications: Medication List START taking these medications Instructions Last Dose Given Next Dose Due doxycycline 100 mg capsule Commonly known as: MONODOX Take 1 capsule (100 mg total) by mouth in the morning and 1 capsule (100 mg total) before bedtime. Do all this for 5 days. ferrous sulfate 325 (65 FE) MG tablet Start taking on: May 16, 2025 Take 1 tablet (325 mg total) by mouth daily with breakfast. furosemide 20 mg tablet Commonly known as: LASIX Start taking on: May 16, 2025 Take 1 tablet (20 mg total) by mouth daily. CHANGE how you take these medications Instructions [...] mcg total) by mouth in the morning. * gabapentin 300 mg capsule Commonly known [...] mg total) by mouth in the morning. traMADoL 50 mg tablet Commonly known as: ULTRAM Take 1 tablet (50 mg total) by mouth every 6 (six) hours as needed for pain for up to 3 days. * This list has 2 medication(s) that are the same as other medications prescribed for you. Read the directions carefully, and ask your doctor or other care provider to review them with you. STOP taking these medications insulin aspart U-100 100 unit/mL (3 mL) insulin pen Commonly known as: NovoLOG ASK your doctor about these medications Instructions Last Dose Given Next Dose Due insulin detemir U-100 100 unit/mL (3 mL) insulin pen Commonly known as: LEVEMIR Inject 15 Units under the skin nightly. Where to Get Your Medications Information about where to get these medications is not yet available Ask your nurse or doctor about these medications doxycycline 100 mg capsule ferrous sulfate 325 (65 FE) MG tablet furosemide 20 mg tablet >30 minutes were spent on discharging this patient. KAIDEN Hopkins, 05/15/2025 5:24 PM [facility] 7AM-7PM & 7PM-7AM: EpicChat or page through On-[employer]. This note is dictated with the use of M*Modal. Please note that this dictation was completed with computer voice recognition software. Quite often unanticipated grammatical, syntax, homophones, and other interpretive errors are inadvertently transcribed by the computer software. Please disregard these errors. Please excuse any errors that have escaped final proofreading. KAIDEN Hopkins 05/15/25 [id number] Physician Attestation I, Felix Hallman MD, personally performed a face to face diagnostic evaluation on this patient. I have reviewed the note authored by the advance practice provider including history, review of systems,physical examination,medical decision making and agree with the assessment and plan as written. I have seen and evaluated the patient, I have repeated the hoffmann portions of the physical exam and concur with the PROMISE findings. I have reviewed all laboratory findings and imaging reports/films. I agree with the plan as noted. Patient with iron deficiency anemia, CHF, CHELSEA was admitted with acute respiratory failure with hypoxia due to acute bronchitis,CHF exacerbation and nondisplaced fracture of lesser trochanter of right femur. Patient was started on diuretics, antibiotics. Orthopedic surgery managed the patient conservatively. Per PT/OT recommendation patient is being discharged to SNF in stable condition. [facility] Progress note Formatting of t his note might be different from the original. DISCHARGE PLANNING NOTE Prior Auth approved for admission to : [facility] [place], [place] (P# ; F# ) Approval # [id number] Valid for Dates: 05/15/2025 - 05/21/2025 [facility] Plan of care note Problem: Pain Goal: Patient goal is pain score less than 4, able to rest, and participant in treatment plan as appropriate Description: INTERVENTIONS: 1. Encourage patient or legal sales account representative to report early pain and ask for pain medicine when needed 2. Assess pain using appropriate pain scale and include the scale used when documenting 3. Administer analgesics based on type and severity of pain and evaluate response within appropriate time frame 4. Implement non-pharmacological measures as appropriate and evaluate response 5. Consider cultural and social influences on pain and pain management 6. Notify LIP if interventions ineffective or patient reports new pain 7. Monitor vital signs including pulse ox, end-tidal CO2 based on pain intervention 8. Reassess pain per policy 9. Teach patient or legal sales account representative interventions for comforting Outcome: Progressing Note: Evaluation of progress towards goal: Pt able to report pain according to 0/10 pain scale. Medicating patient for pain per orders. Problem: Safety Goal: Patient will be injury free during hospitalization Description: INTERVENTIONS: 1. Assess patient's risk for falls and implement fall prevention plan of care per policy 2. Provide and maintain a safe environment 3. Proper use of double Identifiers 4. Medication administration using the 5 rights 5. Hand hygiene 6. Specimens are labeled at the bedside 7. Instruct patient/ patient sales account representative about use of safety devices 8. Include patient/ patient sales account representative in decisions related to safety Outcome: Progressing Note: Evaluation of progress towards goal: Safety measures initiated/maintained. Pt remains safe from harm/injury/falls Problem: Infection Goal: Absence of infection during hospitalization Description: INTERVENTIONS 1. Assess and monitor for signs and symptoms of infection. 2. Monitor lab/diagnostic results. 3. Monitor all insertion sites i.e., indwelling lines, tubes and drains. 4. Monitor endotracheal (as able) and nasal secretions for changes in amount and color. 5. Administer medications as ordered. 6. Instruct and encourage patient and family to use good hand hygiene technique. 7. Identify and instruct patient/patient sales account representative in use of appropriate isolation precautions for identified infection/symptoms. 8. Provide and discuss with patient/patient sales account representative on educational MDRO sheet. 9. Encourage and monitor nutritional status daily and consult senior linux systems administrator if indicated. 10. Implement neutropenic guidelines as needed. Outcome: Progressing Note: Evaluation of progress towards goal: Pt afebrile at this time, continue to monitor for signs infection Problem: Knowledge Deficit Goal: Patient/patient sales account representative demonstrates understanding of disease process, treatment plan, medications, and discharge instructions Description: INTERVENTIONS 1. Complete learning assessment and assess knowledge base 2. Provide teaching at level of understanding 3. Provide teaching via preferred learning method(s) Outcome: Progressing Note: Evaluation of progress towards goal: Evaluate, educate, reinforce learning needs and gaps t/o shift. Problem: Discharge Planning Goal: Discharge to post-acute care, other facility, or home with appropriate resources Description: Patient's goal is: INTERVENTIONS 1. Conduct assessment to determine patient/family and health care team treatment goals, and need for post-acute services based on payer coverage, community resources, and patient preferences, and barriers to discharge 2. Coordinate with Social work, Care Navigation, and Utilization Review to arrange appropriate level of services according to patient's needs based on patient preference and payer coverage in collaboration with the physician and health care team 3. Address psychosocial, clinical, and financial barriers to discharge as identified in assessment in conjunction with the patient/family and health care team 4. Consult appropriate ancillary services (i.e.. PT/OT/ST, etc) as needed 5. Communicate with and update the patient/family, physician, and health care team regarding progress on the discharge plan 6. Identify discharge learning needs (meds, wound care, etc). 7. Arrange for needed discharge transportation as appropriate Outcome: Progressing Note: Evaluation of progress towards goal: Continue to monitor t/o shift to assess for discharge needs. Problem: Readmission Risk Reduction Goal: Readmission Risk Assessment Description: Utilize readmission risk score in the development of discharge plan INTERVENTIONS: 1. Discuss patient's risk of readmission at multidisciplinary discharge transition rounds. 2. Comprehensive assessment of patient's risk of readmission (functional, psychosocial, cognitive). 3. Collaborate with patient / caregiver to identify needs. 4. Handoff to next level of care provider (respiratory care technician, PCP, home care). 5. Complete follow up phone call within 72 hours. Outcome: Progressing Note: Evaluation of progress towards goal: n/a Goal: Discharge Medication Plan Description: Develop a plan to ensure that medications are obtained at the time of discharge INTERVENTIONS: 1. Utilize outpatient pharmacy to deliver medications to patient prior to discharge, where available. 2. Ensure that prescriptions are sent to the patient's pharmacy of choice prior to patient leaving the hospital. If possible, confirm authorizations and co-pays and communicate to patient. 3. During discharge follow-up phone call, confirm that prescriptions have been filled. Outcome: Progressing Note: Evaluation of progress towards goal: n/a Goal: Follow-Up Appointments Description: Schedule patient-centric follow-up appointments prior to discharge INTERVENTIONS: 1. Identify recommended / appropriate timeframes for follow-up. 2. Discuss transportation needs and scheduling preferences with patient. 3. Verify that all follow-up appointments are scheduled prior to discharge. Outcome: Progressing Note: Evaluation of progress towards goal: Pt's on telemetry, strip read at beginning of shift and when changes occur and monitored throughout shift. Pt free of any dysrhythmias. VS and focused assessment done every 4 hours. Goal: Discharge Medication Reconciliation Description: Review discharge medication reconciliation for accuracy INTERVENTIONS: 1. Include last dose date / time on the discharge medication list. 2. Utilize available resources to identify and address issues. 3. Consider use of a Discharge Time-Out or Discharge Final Check. 4. Refer to homecare, as appropriate, for home medication review. Outcome: Progressing Note: Evaluation of progress towards goal: Pt's on telemetry, strip read at beginning of shift and when changes occur and monitored throughout shift. Pt free of any dysrhythmias. VS and focused assessment done every 4 hours. Goal: Discharge Instructions Description: Provide accurate and complete discharge instructions, taking into account health literacy of the patient INTERVENTIONS: 1. Assess patient's learning needs including health literacy. 2. Provide disease-specific education as appropriate. 3. Consider use of teach-back to verify patient / caregiver understanding. 4. Verify understanding of discharge instructions. 5. Consider use of a Discharge Time-Out or Discharge Final-Check. Outcome: Progressing Note: Evaluation of progress towards goal: n/a Problem: Inadequate Airway Clearance Goal: Patient will maintain patent airway Description: INTERVENTIONS 1. Assess and monitor breath sounds, cough and sputum (if present) 2. Monitor respiratory rate and oxygen saturation 3. Collaborate with respiratory therapy to administer medication, oxygen, and suitable airway clearance techniques as ordered 4. Position patient for maximum ventilatory efficiency; elevate head of bed at least 30 degrees if appropriate 5. Provide adequate fluid intake to liquify secretions if appropriate 6. Suction secretions as indicated to maintain patent airway 7. Instruct patient to turn, cough, and deep breathe; encourage incentive spirometer if indicated Outcome: Progressing Note: Evaluation of progress towards goal: Pt is able to maintain a patent airway and breath sounds are clear. Continue to monitor. Problem: Inadequate Breathing Pattern Goal: Patient will achieve/maintain normal respiratory rate/effort Description: Patient's goal is: INTERVENTIONS 1. Assess and monitor respiratory rate, effort, breathing pattern, and oxygenation 2. Monitor patient for restlessness, anxiety, air hunger 3. Assess physical activity tolerance 4. Assess tobacco history; ask, advise, and refer as appropriate 5. Collaborate with interdisciplinary team and initiate plans/interventions as needed Outcome: Progressing Note: Evaluation of progress towards goal: Pt is able to maintain a patent airway and breath sounds are clear. Continue to monitor. Goal: Patient will maintain effective ventilation Description: Patient's goal is: INTERVENTIONS 1. Assess and monitor vital signs, respiratory status (to include respiratory rate, depth, effort, and breath sounds), oxygen saturation, oral mucosa, tongue, pain, and labs (ABGs). 2. Collaborate with interdisciplinary team and initiate plans and interventions as needed 3. Oxygen therapy as indicated 4. Position patient for maximum ventilatory efficiency 5. Instruct patient to turn, cough, and deep breathe; encourage incentive spirometer if indicated 6. Plan activities to conserve energy 7. Encourage ambulation/activity per patient's tolerance 8. Collaborate with patient/RT to administer medications/treatments 9. Monitor lab/diagnostic results Outcome: Progressing Note: Evaluation of progress towards goal: Pt is able to maintain a patent airway and breath sounds are clear. Continue to monitor. Problem: Anxiety Goal: Anxiety is at manageable level Description: Patient's goal is: INTERVENTIONS 1. Assess and monitor patient's anxiety level 2. Monitor for signs and symptoms of anxiety both physical and emotional (heart palpitations, chest pain, shortness of breath, headaches, nausea, feeling jumpy, restlessness, irritable, apprehensive) 3. Reorient/orient patient to unit/surroundings 4. Explain treatment plan 5. Explain tests/procedures prior to initiation 6. Encourage participation in care 7. Encourage verbalization of concerns/fears 8. Assess coping mechanisms 9. Assist in developing anxiety-reducing skills 10. Administer complimentary therapies 11. Manage patient's environment 12. Limit or eliminate stimulants such as caffeine and nicotine 13. Collaborate with ancillary departments 14. Include patient/patient sales account representative in decisions related to anxiety Outcome: Progressing Note: Evaluation of progress towards goal: Education and reassurance provided as needed to maintain a decreased level of fear/anxiety as needed. Problem: Activity Intolerance/Impaired Mobility Goal: Mobility/activity is maintained at optimum level for patient Description: Patient's goal is: INTERVENTIONS 1. Assess and monitor patient barriers to mobility and need for assistive/adaptive devices 2. Assess patient's emotional response to limitations 3. Collaborate with interdisciplinary teams and initiate plans and interventions as ordered 4. Encourage independent activity per tolerance 5. Maintain proper body alignment 6. Perform active/passive ROM as tolerated/ordered 7. Coordinate activities to conserve energy 8. Reposition patient 9. Ensure adequate rest/sleep time Outcome: Progressing Note: Evaluation of progress towards goal: Improve mobility, maintain or improve quality of self care Problem: Inadequate Coping Goal: Demonstrates and verbalizes ability to cope effectively Description: Patient's goal is: INTERVENTIONS 1. Patient is able to verbalize feelings related to emotional state 2. Encourage verbalization of feelings, perceptions, fears, stressors, loss of loved ones 3. Encourage verbalization of problems out of their control 4. Encourage participation in care and self management 5. Inform patient of all treatment/care prior to providing care 6. Collaborate with pastoral/spiritual care, social security specialist, mental health counselor as needed. 7. Instruct patient on diversional activities such as physical activity, distraction, and deep breathing exercises to assist with coping 8. Involve patient's sales account representative in care Outcome: Progressing Note: Evaluation of progress towards goal: Pt's on telemetry, strip read at beginning of shift and when changes occur and monitored throughout shift. Pt free of any dysrhythmias. VS and focused assessment done every 4 hours. Problem: Moderate - High Risk Fall Score Description: Patel Fall Score of =/> 25 or indicated by [facility] Assessment Goal: Patient should be free from fall Description: Interventions: 1. Wheelwright to environment 2. Hourly rounds addressing the 4 P's (Pain, Positioning, Possessions, Potty) 3. Clear area of hazards (spills, clutter, electrical cords, unnecessary equipment) 4. Place equipment (bed & TV controls, call light, phone, urinal) within reach 5. Encourage patient to wear glasses and hearing aides as appropriate 6. Maintain bed in lowest position 7. Lock wheels on bed/wheelchair 8. Provide adequate lighting, including night light 9. Assess need for additional bedding, food/fluids, pain med's prior to sleep/routinely 10. Provide gripper slippers or personal non-skid footwear 11. Teach patient and patient sales account representative to maintain environment for safety and engage in all aspects of fall prevention program 12. Remind patient to call for help before getting out of bed 13. Initiate bed/chair/exit alarms supportive devices as appropriate, (chair wedge, no-skid floor mat, raised edge mattress, hip protectors) 14. Locate patient bed assignment for optimal visualization 15. Evaluate and identify Safe Patient Handling Equipment needs 16. Provide supervision when out of bed or chair 17. Utilize gait belt as needed to assist with ambulation 18. Place adaptive equipment (cane, walker) within reach 19. Request patient sales account representative bring adaptive equipment/mobility aids from home or obtain and provide as needed 20. Consult pharmacy regarding effects of med's affecting mobility, cognition, and alternatives 21. Obtain physician order for PT if risk factors associated with mobility are present 22. Obtain physician order for OT as appropriate 23. Utilize diversional activities 24. Educate patient and patient sales account representative how to maintain a safe environment during visitation times (notify nurse prior to leaving bedside) 25. Consider appropriateness of medical or non-back office medical assistant 26. Set up voiding schedule as appropriate (every 2 hours) Outcome: Progressing Note: Evaluation of progress towards goal: Pt remains free from falls or accidental injury during stay. Fall prevention measures in place. Hourly rounding per RN and maintained. Problem: Potential for Compromised Skin Integrity Goal: Skin integrity is maintained or improved Description: Patient's goal is: INTERVENTIONS 1. Perform initial skin assessment on admission and as needed 2. Turn patient every 2 hours and PRN 3. Relieve pressure to bony prominences 4. Avoid shearing 5. Keep skin clean and dry 6. Alternate a full bath with partial baths for elderly 7. Apply lotion/moisturizer on skin 8. Monitor patient's hygiene practices 9. Float heels 10. Collaborate with interdisciplinary team and initiate plans and interventions as needed Outcome: Progressing Note: Evaluation of progress towards goal: Maintain skin integrity and tissue integrity Goal: Patient's nutritional intake is adequate Description: Patient's goal is: INTERVENTIONS 1. Assess and monitor food intake and supplements, patient food preferences, nausea, vomiting, labs, oral cavity (gums, teeth, tongue, mucosa), proper denture fit, and cultural beliefs 2. Monitor for signs of hypoglycemia and hyperglycemia 3. Collaborate with interdisciplinary team and initiate plan and interventions as ordered 4. Monitor patient's weight 5. Assist patient with meals/food selection 6. Assist patient with eating 7. Allow adequate time for meals 8. Provide pleasant environment during mealtime 9. Increase social contact during mealtimes 10. Plan activities to conserve energy 11. Encourage/perform oral hygiene as appropriate 12. Encourage patient to take dietary supplement as ordered 13. Collaborate with clinical senior linux systems administrator 14. Include patient/ patient's sales account representative in decisions related to nutrition Outcome: Progressing Note: Evaluation of progress towards goal: Patient understands the importance of proper nutrition to aid in healing. Problem: Urinary Incontinence Goal: Perineal skin integrity is maintained or improved Description: INTERVENTIONS 1. Assess genitourinary system, perineal skin, labs (urinalysis), and history of incontinence to include past management, aggravating, and alleviating factors 2. Keep skin clean and dry 3. Apply skin protectant 4. Develop skin care regimen 5. Provide privacy when changing patients incontinence device to maintain their dignity 6. Consider placing an indwelling catheter 7. Collaborate with interdisciplinary team and initiate plans and interventions as needed Outcome: Progressing Note: Evaluation of progress towards goal: Perineal skin kept clean and dry, privacy provided as needed, skin protectant applied as needed, labs monitored. Problem: Neurosensory - Adult Goal: Achieves stable or improved neurological status Description: Patient's goal is: INTERVENTIONS 1. Assess for and report changes in neurological status 2. Initiate measures to prevent increased intracranial pressure 3. Maintain blood pressure and fluid volume within ordered parameters to optimize cerebral perfusion and minimize risk of hemorrhage 4. Monitor temperature, glucose, and sodium. Initiate appropriate interventions as ordered Outcome: Progressing Note: Evaluation of progress towards goal: Pt able to participate in self care with no limitations. Continue to monitor. Problem: Cardiovascular - Adult Goal: Absence of cardiac dysrhythmias or at baseline Description: INTERVENTIONS: 1. Continuous cardiac monitoring, monitor vital signs, obtain 12 lead EKG as ordered 2. Monitor for therapeutic effect/ side effects and safely 3. Administer antiarrhythmic and heart rate control medications as ordered 3. Initiate emergency measures for life threatening arrhythmias 4. Monitor labs and administer replacement/adjust therapy as ordered Outcome: Progressing Note: Evaluation of progress towards goal: Pt's on telemetry, strip read at beginning of shift and when changes occur and monitored throughout shift. Pt free of any dysrhythmias. VS and focused assessment done every 4 hours. Problem: Respiratory - Adult Goal: Achieves optimal ventilation and oxygenation Description: Patient's goal is: INTERVENTIONS: 1. Assess for changes in respiratory status 2. Assess for changes in mentation and behavior 3. Position to facilitate oxygenation and minimize respiratory effort 4. Oxygen supplementation based on oxygen saturation or ABGs as ordered 5. Consult smoking cessation as indicated 6. Encourage broncho-pulmonary hygiene including cough, deep breathe, Incentive Spirometry, keep HOB elevated as tolerated, and encourage ambulation, as ordered 7. Assess the need for suctioning and obtain order to maintain clear airway 8. Assess and instruct patient to report SOB or any respiratory difficulty 9. Assess the need for Respiratory Therapy support if not already ordered 10. Initiate emergency measures for respiratory failure Outcome: Progressing Note: Evaluation of progress towards goal: Pt will maintain WDL saturation to ensure perfusion and oxygenation and ventilation [facility] 05-15-2025 Progress note Formatting of t his note is different from the original. Physical Therapy Evaluation Discharge Recommendations for Safe Patient Transition Discharge Recommendations: Post acute - moderate Post Acute Moderate Rehab Needs: Recommend moderate intensity rehab, Tolerate 1-2 hrs of therapy 3-5 days/wk, Subacute or chronic functional impairment Current Impairments Informing Therapy Recommendation: Ambulation status/safety, Cognition, Fall risk, ADL status, Endurance level Sheet Heater Helper Support for-: Mobility Deficits, ADL Deficits, Cognitive [...] A lot To walk in hospital room?: A lot Climbing 3-5 steps with a railing?: Total Scoring 6 Clicks: Basic Mobility Raw Score: 11 CMS G Code Modifier: CL Therapy Plan Need for skilled Physical Therapy to address deficits in functional mobility due to a status decline resulting from fall, LE weakness, acute respiratory and hypoxia with new R. Lesser trochanter femur fracture with WBAT. PT Treatment/Interventions: Functional transfer training, LE strengthening/ROM, Endurance training, Balance, Bed mobility, Gait training, Functional activities, Neuromuscular reeducation PT Frequency: 5-6days/week PT Duration: 10 days Assessment Patient Assessment Therapy Problem List: Decreased ADL status, Decreased balance, Decreased cognition, Decreased endurance, Decreased high-level ADLs, Decreased mobility, Decreased safe judgement during ADL, Decreased self-care trans, Decreased UE strength, Decreased LE strength Patient Response to Treatment: Tolerated evaluation without adverse reaction Mood/Affect: Appropriate for circumstances Rehab Prognosis: Fair, Guarded, With continued PT status post acute discharge Visit RN Communication: Yes Medical Record Reviewed: Yes PT Type of Visit: Evaluation Precautions Activity: early mobility pass, OK to eval per Ileana PIERRE Equipment: pure whick, telesitter, bed and chair alarm, standard walker, gait belt, IV/midline Weight Bearing Status: WBAT Telemetry/Hospitality House Supervisor: Yes Oxygen Used: room air Other: fall risk Past Medical History: Diagnosis Date Anemia Arthritis Asthma very mild, no inhaler use Cataract Dental disease Depression Diabetes mellitus [place] Diabetes mellitus type 2, controlled ([facility]) Encephalitis Foot fracture, left GERD (gastroesophageal reflux disease) Heart murmur HLD (hyperlipidemia) Hypertension Incontinence Injury of back Insulin dependent diabetes mellitus Kidney failure STAGE 4 Lumbar spondylolysis Murmur Obesity CHELSEA (obstructive sleep apnea) no machine Peptic ulceration Peripheral vascular disease Shortness of breath Stroke ([facility]) 02/27/2024 TIA (transient ischemic attack) Upper respiratory infection UTI (urinary tract infection) Visual impairment Wears dentures Past Surgical History: Procedure Laterality Date BREAST BIOPSY Right 03/01/2023 ULT BIOPSY CATARACT EXTRACTION SECTION SECTION 03/14/1974 EGD N/A 10/17/2019 Performed by Sarai Bell DO at [facility] H-PERCUTANEOUS CORONARY INTERVENTION HYSTEROSCOPY DILATION CURETTAGE MYOSURE N/A 01/29/2021 Performed by Jv Briones MD at [facility] INJECTION BLOCK EPIDURAL CAUDAL STEROID N/A 08/14/2022 Performed by Arnulfo Gonzalez MD at [facility] INJECTION BLOCK EPIDURAL CAUDAL STEROID N/A 06/06/2021 Performed by Arnulfo Gonzalez MD at [facility] INJECTION BLOCK EPIDURAL CAUDAL STEROID N/A 04/25/2021 Performed by Arnulfo Gonzalez MD at [facility] INJECTION CAUDAL EPIDURAL WITH CATHETER, STEROID N/A 05/03/2020 Performed by Arnulfo Gonzalez MD at [facility] INJECTION CAUDAL EPIDURAL WITH CATHETER, STEROID N/A 11/24/2019 Performed by Arnulfo Gonzalez MD at [facility] INJECTION CAUDAL EPIDURAL WITH CATHETER, STEROID N/A 04/21/2019 Performed by Arnulfo Gonzalez MD at [facility] INJECTION MEDIAL BRANCH NERVE BLOCK Bilateral L 4/5, 5/1 Bilateral 08/18/2019 Performed by Arnulfo Gonzalez MD at [facility] INJECTION MEDIAL BRANCH NERVE BLOCK Bilateral L 4/5, 5/1 Bilateral 06/23/2019 Performed by Arnulfo Gonzalez MD at [facility] INJECTION STEROID EPI 1 WITH SEDATION Right L 4, 5 NR Right 03/17/2019 Performed by Arnulfo Gonzalez MD at [facility] INJECTION STEROID EPI 1 WITH SEDATION: right L45 nroot Right 08/15/2018 Performed by Arnulfo Gonzalez MD at [facility] LEFT L4, AND 5 NERVE ROOT INJECTION 2 OF 2 Left 07/22/2018 Performed by Arnulfo Gonzalez MD at [facility] LEFT L4, AND L5 NERVE ROOT 1 OF 2 Left 07/04/2018 Performed by Arnulfo Gonzalez MD at [facility] SHUNT INSERTION TONSILLECTOMY AGE 4 Transcutaneous aortic valve replacement/Transfemoral/Kwan N/A 08/17/2023 Performed by Chava Norris MD at [facility] Valvuloplasty aortic N/A 06/03/2023 Performed by Chava Norris MD at [facility] Subjective Physical Therapy Comments: I think I'll be fine to go home, my daughter will help me. Pain Assessment Pain Assessment: No/denies pain (No pain at initiation of session. Increased pain with mobility but doesn't rate on VAS. Pain resolves once re-positioned in bed with pillow under knees.) Pain Intervention(s): Repositioned, Emotional support Home Living Type of Home: House Home Layout: One level Stairs to Enter: ramp in garage Stairs in Home: 0 Bathroom Shower/Tub: Tub/shower unit Bathroom Toilet: Raised Bathroom Equipment: Shower chair, Grab bars in shower, Grab bars around toilet (Reports she hasn't taken a shower lately) Home Equipment: 4 Wheeled walker, Wheelchair-manual, Hospital bed (Daughter plans to get her a lift chair) Prior Function Lives With: Daughter (Grandson born a female, does not work, 18, has autism. Daughter doesn't work, on disability.) Receives Help From: Family Level of Mobility: Needs assistance with ADLs or functional transfers or gait (Reports needs assist to stand. Independent with dressing, limited sponge bathing. Reports independent toileting and ambulation with rollator. Uses w/c in the community. Has not been out of the house for quite some time.) Homemaking Assistance: Needs assistance (Daughter and grandson complete all IADLs. Groceries delivered.) ADL / IADL Hand Dominance: Right Hearing / Speech / Vision Hearing: Within Functional Limits Speech: Within Functional Limits Current Vision: Wears glasses all the time Cognition Orientation Level: Oriented to place, Oriented to person, Oriented to age, Oriented to month Sensation Overall Sensation Status: (Denies numbness/tingling in UEs/LEs so did not formally assess) Bed Mobility Sit to Supine: Max assist (x 1 at trunk and LEs, cues for reverse log roll technique. Enters bed from the left.) Other: Ends session in supine, bed alarm intact, call button and bedside table within reach. Denies further needs. Transfers Sit to Stand: Max assist (from chair height, cues for safe hand placement, use of walker and gait belt. Blocking of bilateral feet. MAX A for anterior weight shift and bringing weight over base of support. Pushes against chair.) Stand to Sit: Max assist (For eccentric control, cues for safe hand placement. Fair return demonstration. Limited by pain.) Bed to Chair: Max assist (Chair to bed (transfer to right), MAX A to keep center of gravity over base of support, advance walker, assist to weight shift.) Stand Pivot Transfers: Max assist (Requires assist for weight shifting, cues to sequence, assist to negotiate walker.) Other: Begins session in bedside chair. Requests to return to bed. Does so with MAX A x 1 and use walker. Poor tolerance to standing and taking steps. Did not attempt gait training. Ends session supine in bed with bed alarm intact, call button and bedside table within reach. Denies further needs. Balance Sitting Balance: Static: Good Sitting Balance: Dynamic: Fair, Poor Standing Balance: Static: Fair, Poor Standing Balance: Dynamic: Poor Posture Posture Evaluation: (Decreased lumbar lordosis, lacks full hip extension to neutral bilaterally. Prefers bilatera knee flexion during standing against gravity.) RLE Assessment: (Grossly 3+/5, limited by pain) LLE Assessment: (Grossly 3+/5, ,limited by pain) Activity Tolerance Endurance: Tolerates <30 minutes activity WITHOUT vital sign changes Other: SpO2 87-92% on room air. Holds breath with exertion. Quickly returns to greater than 90% with cues. Plan Physical Therapy Care Plan Physical Therapy Care Plan (Active) Template: PT - Physical Therapy Problem: Activity Tolerance Dates: Start: 05/15/25 Disciplines: PT Goal: Tolerate 30 minutes of activity WITH rest breaks Dates: Start: 05/15/25 Expected End: 05/24/25 Description: Goal Description: to improve strength for carry over to independent transfers. Disciplines: PT Problem: Bed Mobility Dates: Start: 05/15/25 Disciplines: PT Goal: Patient will perform bed mobility with Moderate Assist Dates: Start: 05/15/25 Expected End: 05/25/25 Description: Goal Description: MOD A using log roll/reverse log roll technique to compensate for LE weakness and pain. Disciplines: PT Problem: Gait Dates: Start: 05/15/25 Disciplines: PT Goal: Patient will perform gait with Moderate Assist Dates: Start: 05/15/25 Expected End: 05/24/25 Description: With__RW__,__10__feet Goal Description: to negotiate short functional distance to/from chair for meals and bathroom for toileting as per PLOF. Disciplines: PT Problem: Transfers Dates: Start: 05/15/25 Disciplines: PT Goal: Patient will perform transfers with Moderate Assist Dates: Start: 05/15/25 Expected End: 05/24/25 Description: Goal Description: and use of walker do to improving LE strength to decrease caregiver burden at discharge. Disciplines: PT Physical Therapy Care Plan (Resolved) There are no resolved problems. Principal Problem: Acute respiratory failure with hypoxia ([facility]) Active Problems: 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 mellitus ([facility]) Mixed diabetic hyperlipidemia associated with type 2 diabetes mellitus ([facility]) Obstructive sleep apnea syndrome Essential (primary) hypertension Acute on chronic diastolic congestive heart failure ([facility]) Stage 3b chronic kidney disease ([facility]) Type 2 diabetes mellitus with diabetic chronic kidney disease ([facility]) Iron deficiency anemia Hypomagnesemia Closed fracture of right hip ([facility]) Nondisplaced fracture of lesser trochanter of right femur, initial encounter for closed fracture ([facility]) [facility] 05-15-2025 Progress note Formatting of t his note is different from the original. Occupational Therapy Evaluation Discharge Recommendations for Safe Patient Transition Discharge Recommendations: Post acute - moderate Post Acute Moderate Rehab Needs: Recommend moderate intensity rehab, Subacute or chronic functional impairment, Tolerate 1-2 hrs of therapy 3-5 days/wk Current Impairments Informing Therapy Recommendation: Ambulation status/safety, Cognition, Fall risk, ADL status, Endurance level Sheet Heater Helper Support for-: Mobility Deficits, ADL Deficits, Cognitive Impairments 6 Clicks: Daily Activity Putting on and taking off regular lower body clothing?: Total Bathing (including washing, rinsing, drying)?: A lot Toileting, which includes using toilet, bedpan or urinal?: Total Putting on and taking off regular upper body clothing?: A little Taking care of personal grooming such as brushing teeth?: A little Eating meals?: A little Scoring Daily Activity Raw Score: 13 CMS G Code Modifier: CL Therapy Plan/HPI/occupational profile throughout eval Need for skilled Occupational Therapy to address deficits in ADL independence and functional mobility due to a status decline resulting from acute respiratory failure with hypoxia found to have RT lesser trochanter fracture per ortho WBAT. A moderate complex eval completed. Past Surgical History: Procedure Laterality Date BREAST BIOPSY Right 03/01/2023 ULT BIOPSY CATARACT EXTRACTION SECTION SECTION 03/14/1974 EGD N/A 10/17/2019 Performed by Sarai Bell DO at [facility] H-PERCUTANEOUS CORONARY INTERVENTION HYSTEROSCOPY DILATION CURETTAGE MYOSURE N/A 01/29/2021 Performed by Jv Briones MD at [facility] INJECTION BLOCK EPIDURAL CAUDAL STEROID N/A 08/14/2022 Performed by Arnulfo Gonzalez MD at [facility] INJECTION BLOCK EPIDURAL CAUDAL STEROID N/A 06/06/2021 Performed by Arnulfo Gonzalez MD at [facility] INJECTION BLOCK EPIDURAL CAUDAL STEROID N/A 04/25/2021 Performed by Arnulfo Gonzalez MD at [facility] INJECTION CAUDAL EPIDURAL WITH CATHETER, STEROID N/A 05/03/2020 Performed by Arnulfo Gonzalez MD at [facility] INJECTION CAUDAL EPIDURAL WITH CATHETER, STEROID N/A 11/24/2019 Performed by Arnulfo Gonzalez MD at [facility] INJECTION CAUDAL EPIDURAL WITH CATHETER, STEROID N/A 04/21/2019 Performed by Arnulfo Gonzalez MD at [facility] INJECTION MEDIAL BRANCH NERVE BLOCK Bilateral L 4/5, 5/1 Bilateral 08/18/2019 Performed by Arnulfo Gonzalez MD at [facility] INJECTION MEDIAL BRANCH NERVE BLOCK Bilateral L 4/5, 5/1 Bilateral 06/23/2019 Performed by Arnulfo Gonzalez MD at [facility] INJECTION STEROID EPI 1 WITH SEDATION Right L 4, 5 NR Right 03/17/2019 Performed by Arnulfo Gonzalez MD at [facility] STEROID EPI 1 WITH SEDATION: right L45 nroot Right 08/15/2018 Performed by Arnulfo Gonzalez MD at [facility] LEFT L4, AND 5 NERVE ROOT INJECTION 2 OF 2 Left 07/22/2018 Performed by Arnulfo Gonzalez MD at [facility] LEFT L4, AND L5 NERVE ROOT 1 OF 2 Left 07/04/2018 Performed by Arnulfo Gonzalez MD at [facility] SHUNT INSERTION TONSILLECTOMY AGE 4 Transcutaneous aortic valve replacement/Transfemoral/Kwan N/A 08/17/2023 Performed by Chava Norris MD at [facility] Valvuloplasty aortic N/A 06/03/2023 Performed by Chava Norris MD at [facility] Past Medical History: Diagnosis Date Anemia Arthritis Asthma very mild, no inhaler use Cataract Dental disease Depression Diabetes mellitus [place] Diabetes mellitus type 2, controlled ([facility]) Encephalitis Foot fracture, left GERD (gastroesophageal reflux disease) Heart murmur HLD (hyperlipidemia) Hypertension Incontinence Injury of back Insulin dependent diabetes mellitus Kidney failure STAGE 4 Lumbar spondylolysis Murmur Obesity CHELSEA (obstructive sleep apnea) no machine Peptic ulceration Peripheral vascular disease Shortness of breath Stroke ([facility]) 02/27/2024 TIA (transient ischemic attack) Upper respiratory infection UTI (urinary tract infection) Visual impairment Wears dentures OT Treatment/Interventions: ADL retraining, Functional transfer training, UE strengthening/ROM, Endurance training, Cognitive reorientation, Patient/family training, Equipment eval/education, Home management, Balance, Compensatory technique education, Functional activities OT Frequency: 4-5days/week OT Duration: 10 days Assessment Patient Assessment Therapy Problem List: Decreased ADL status, Decreased balance, Decreased cognition, Decreased endurance, Decreased high-level ADLs, Decreased mobility, Decreased safe judgement during ADL, Decreased self-care trans, Decreased UE strength Patient Response to Treatment: Tolerated evaluation without adverse reaction Mood/Affect: Appropriate for circumstances Rehab Prognosis: Fair, Guarded, With continued OT status post acute discharge Visit RN Communication: Yes Medical Record Reviewed: Yes OT Type of Visit: Evaluation Precautions Activity: early mobility pass, OK to eval per Ileana PIERRE Equipment: pure whick, telesitter, bed and chair alarm, standard walker, gait belt, IV/midline Weight Bearing Status: WBAT Telemetry/Hospitality House Supervisor: Yes Oxygen Used: room air Other: fall risk Subjective Occupational Therapy Comments: I think that I am going home soon Pain Assessment Pain Assessment: 0-10 Pain Score: 3 (no pain at rest) Pain Location: Hip Pain Orientation: Right Pain Intervention(s): Repositioned, Emotional support Home Living Type of Home: House Home Layout: One level Stairs to Enter: ramp in the garage Stairs in Home: 0 Bathroom Shower/Tub: Tub/shower unit Bathroom Toilet: Raised Bathroom Equipment: Shower chair, Grab bars in shower, Grab bars around toilet (reports that she hasn't taken a shower lately) Home Equipment: 4 Wheeled walker, Wheelchair-manual, Hospital bed (reports daughter plans to get lift chair) Prior Function Lives With: Daughter (and grandson and grandson- born a female , 18- he does not work, on the disability list . daugther does not work she is on disability) Receives Help From: Family Level of Mobility: Needs assistance with ADLs or functional transfers or gait (reports that she needed assist to stand from surfaces. independent with dressing, limited sponge bathing. reports independent with toileting and ambulation with rollator. uses wheelchair in the community- reports she has notbeenoutof thehouseforalongtime) Homemaking Assistance: Needs assistance (daugther and grandson completes all IADLS, groceries are being delivered) ADL / IADL Hand Dominance: Right Eating Assistance: Setup Grooming Assistance: Standby assist (seated on edge of bed) Bathing/Showering Assistance: Mod assist Bathing/Showering Deficit: Right lower leg including foot, Left lower leg including foot, Left upper leg, Right upper leg, Buttocks, Perineal area, Increased time to complete , Supervision/safety, Verbal cueing, Steadying Toilet/Commode Assistance: Total assist (pure whick) Toilet/Commode Deficit: Perineal hygiene, Clothing management down, Clothing management up UE Dressing Assistance: Min assist (don./dofs clean gown) LE Dressing Assistance: Total assist LE Dressing Deficit: Don/doff brief Footwear Assistance: Mod assist Footwear Deficit: R sock (due to pain) Other: senior underwriter introduced slef role and goals, senior underwriter familaiar with patient. patient agreeable to eval. completes sponge bath while seated on edge of bed, changes gown once seated in chair. brekfast tray arrives and session terminated Home Management - IADL Other: senior underwriter introduced slef role and goals, senior underwriter zulma with patient. patient agreeable to eval. completes sponge bath while seated on edge of bed, changes gown once seated in chair. brekfast tray arrives and session terminated Hearing / Speech / Vision Hearing: Within Functional Limits Speech: Within Functional Limits Current Vision: Wears glasses all the time Cognition Orientation Level: Oriented to age, Oriented to month, Oriented to person, Oriented to time, Oriented to place, Oriented to situation Sensation Overall Sensation Status: (denies numbness and tingling) Bed Mobility Supine to Sit: Mod assist, Max assist (assist for R LE management , head of bed elevated and use of bed rail) Other: remains in chair at end of session , call light with in reach, ed to use call light, alarm on Transfers Sit to Stand: Min assist, Mod assist, Verbal cues (pulls up on walker in the middle despite cues for hand placement) Stand to Sit: Mod assist, Visual cues (for slow descent) Bed to Chair: Mod assist Stand Pivot Transfers: Mod assist Other: completes stand pivot from edge of bed to chair with mod assist and use of walker in order to increase strength and endurance as pt prepares for return to community, elevated hear rate to 124 during transfer Balance Sitting Balance: Static: Good Sitting Balance: Dynamic: Fair, Poor Standing Balance: Static: Fair, Poor Standing Balance: Dynamic: Poor RUE Assessment: (grossly 3+/5) LUE Assessment: (grossly 3+/5) Activity Tolerance Endurance: Tolerates <30 minutes activity WITHOUT vital sign changes Pre-Activity SpO2: 98 % During Activity SpO2 : 88 % Post-Activity SpO2: 90 % Other: dyspena with exertion , cues for pure sip breathing, after transfer pt states that was hard Plan Occupational Therapy Care Plan Occupational Therapy Care Plan (Active) Template: OT - Occupational Therapy Problem: Other (Customize) Dates: Start: 05/15/25 Disciplines: OT Goal: Improve Dates: Start: 05/15/25 Expected End: 05/24/25 Description: Goal Description:Patient to increase IND in ADls to min assist for lower body and supervision for upper body using AE as needed with supervision for toielting tasks in order to promote return to prior level of function Disciplines: OT Problem: Standing Balance Dates: Start: 05/15/25 Disciplines: OT Goal: Improve balance to good Dates: Start: 05/15/25 Expected End: 05/24/25 Description: Patient to increase standing balance to good in order to increase IND in ADLS and lower body dressing tasks Disciplines: OT Problem: Strength Dates: Start: 05/15/25 Disciplines: OT Goal: Improve strength Dates: Start: 05/15/25 Expected End: 05/24/25 Description: Of extremity/ location:pt to increase BUE strength to 4/5 to assist with increased independence in ADL tasks To facilitate: Disciplines: OT Occupational Therapy Care Plan (Resolved) There are no resolved problems. Principal Problem: Acute respiratory failure with hypoxia ([facility]) Active Problems: 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 mellitus ([facility]) Mixed diabetic hyperlipidemia associated with type 2 diabetes mellitus ([facility]) Obstructive sleep apnea syndrome Essential (primary) hypertension Acute on chronic diastolic congestive heart failure ([facility]) Stage 3b chronic kidney disease ([facility]) Type 2 diabetes mellitus with diabetic chronic kidney disease ([facility]) Iron deficiency anemia Hypomagnesemia Closed fracture of right hip ([facility]) Nondisplaced fracture of lesser trochanter of right femur, initial encounter for closed fracture ([facility]) PatientKeeper Work Phone: 05-15-2025 Progress note Formatting of t his note might be different from the original. DISCHARGE PLANNING NOTE Cuca Goodwin PT/OT reminded via secure chat that we need PT/OT notes to submit for SNF insurance authorization. Patient Discharge Plan: [facility] (accepted) and pending insurance authorization. Can't submit until we have PT/OT evaluation and recommendation. Patient is WBAT. Plan of Care: [facility] (SNF) [phone] Fax CRF at Discharge Follow up appointments: Orthopedics would like to see patient in two weeks. This was added to AVS for SNF to schedule for patient. - Purvi Cardenas RN 05/15/25 8:35 AM PT and OT notes completed. Tasked pre-certification team to begin insurance authorization for patient to go to [place]. Patient Discharge Plan: [facility] (accepted) and pending insurance authorization. Plan of Care: [facility] (SNF) [phone] Fax CRF at Discharge Follow up appointments: Orthopedics would like to see patient in two weeks. This was added to AVS for SNF to schedule for patient. - Purvi Cardenas RN 05/15/25 12:58 PM Insurance authorization received. Provider placed discharge order. Preadmission Screening & Resident Review (PASSR) PASSR completed via the [employer] Electronic Notification System) ODM 7000 (short form) completed and submitted? yes Is a Level II Evaluation required? no SNF notified on [facility] of PASSR completion. yes CRF sent via [facility] yes Patient Discharge Plan: [facility] (accepted) and insurance authorization received. Plan of Care: [facility] (SNF) [phone] Fax CRF at Discharge Follow up appointments: Orthopedics would like to see patient in two weeks. This was added to AVS for SNF to schedule for patient. - Purvi Cardenas RN 05/15/25 2:51 PM [facility] 05-14-2025 Plan of care note Problem: Safety Goal: Patient will be injury free during hospitalization Description: INTERVENTIONS: 1. Assess patient's risk for falls and implement fall prevention plan of care per policy 2. Provide and maintain a safe environment 3. Proper use of double Identifiers 4. Medication administration using the 5 rights 5. Hand hygiene 6. Specimens are labeled at the bedside 7. Instruct patient/ patient sales account representative about use of safety devices 8. Include patient/ patient sales account representative in decisions related to safety Outcome: Progressing Note: Evaluation of progress towards goal: Mobility - bedrest, to be seen by PT. No injury/ trauma/ fall. Hourly rounds completed. Problem: Activity Intolerance/Impaired Mobility Goal: Mobility/activity is maintained at optimum level for patient Description: Patient's goal is: INTERVENTIONS 1. Assess and monitor patient barriers to mobility and need for assistive/adaptive devices 2. Assess patient's emotional response to limitations 3. Collaborate with interdisciplinary teams and initiate plans and interventions as ordered 4. Encourage independent activity per tolerance 5. Maintain proper body alignment 6. Perform active/passive ROM as tolerated/ordered 7. Coordinate activities to conserve energy 8. Reposition patient 9. Ensure adequate rest/sleep time Outcome: Progressing Note: Evaluation of progress towards goal: Case of right hip fracture, non surgical management, bed rest overnight. Problem: Neurosensory - Adult Goal: Achieves stable or improved neurological status Description: Patient's goal is: INTERVENTIONS 1. Assess for and report changes in neurological status 2. Initiate measures to prevent increased intracranial pressure 3. Maintain blood pressure and fluid volume within ordered parameters to optimize cerebral perfusion and minimize risk of hemorrhage 4. Monitor temperature, glucose, and sodium. Initiate appropriate interventions as ordered Outcome: Progressing Note: Evaluation of progress towards goal: GCS - 14, confused, alert to self, current on tele sitter. Problem: Cardiovascular - Adult Goal: Absence of cardiac dysrhythmias or at baseline Description: INTERVENTIONS: 1. Continuous cardiac monitoring, monitor vital signs, obtain 12 lead EKG as ordered 2. Monitor for therapeutic effect/ side effects and safely 3. Administer antiarrhythmic and heart rate control medications as ordered 3. Initiate emergency measures for life threatening arrhythmias 4. Monitor labs and administer replacement/adjust therapy as ordered Outcome: Progressing Note: Evaluation of progress towards goal: EKG - NSR , denies any cardiac related complaints. Problem: Respiratory - Adult Goal: Achieves optimal ventilation and oxygenation Description: Patient's goal is: INTERVENTIONS: 1. Assess for changes in respiratory status 2. Assess for changes in mentation and behavior 3. Position to facilitate oxygenation and minimize respiratory effort 4. Oxygen supplementation based on oxygen saturation or ABGs as ordered 5. Consult smoking cessation as indicated 6. Encourage broncho-pulmonary hygiene including cough, deep breathe, Incentive Spirometry, keep HOB elevated as tolerated, and encourage ambulation, as ordered 7. Assess the need for suctioning and obtain order to maintain clear airway 8. Assess and instruct patient to report SOB or any respiratory difficulty 9. Assess the need for Respiratory Therapy support if not already ordered 10. Initiate emergency measures for respiratory failure Outcome: Progressing Note: Evaluation of progress towards goal: Currently on room air but restarted NC 2 LPM due to low saturation 88-89% during asleep, breath sounds diminished, not in respiratory distress. [facility] 05-14-2025 Hospital Discharge instructions Beatrice. Ileana Douglas RN - 05/14/2025 2:00 PM EDT May 23, at 1 pm. NOM's orthopedic follow up. documented in this encounter [facility] 05-14-2025 Progress note Formatting of t his note might be different from the original. ET nurse note: ET seen patient for a Cale score of 16. Initial ET skin assessment completed. Patient has excoriation to groin. Cleanse with soap and water then pat dry daily then apply antifungal powder. Remaining pressure points clear. Skin protocols on chart. Continue to follow wound care order set and turn patient every 2 hours. No additional concerns at this time. Please consult Wound Care Services with any new skin concerns. [facility] 05-14-2025 Progress note Formatting of t his note might be different from the original. Dr. Joiner notified of this patient Patient has not established care with Dr. Joiner. Dr. Sb rutledge would like us to continue medical care of this patient during hospital stay [facility] 05-14-2025 Progress note Formatting of t his note is different from the original. Occupational Therapy OT Type of Visit: Medical deferral Reason For Medical Deferral: Provider input needed OT defers eval due to nondisplaced fracture of lesser trochanter of R femur, await ortho for WB status to ensure safe completion of ADL tasks. OT to continue to follow. [facility] 05-14-2025 Progress note Formatting of t his note is different from the original. Images from the original note were not included. Discharge Planning Assessment Cuca Goodwin Admit Status: Inpatient Meet: Yes Readmission Risk: 31%. Date of Admission: 05/13/2025 GMLOS: 4.6 days Target Discharge Date: 05/17/2025 Discharge Planning Assessment completed at bedside and via phone with patient's daughterIsmael. Aged Or Disabled Carer identified self and role to the patient. Patient and Ismael are agreeable to the assessment and discussion of a safe discharge plan. Initial Assessment Flowsheet Row Most Recent Value Patient Information Initial Pre-Hospitalization Assessment Completed? Completed Primary Caregiver Self [Pt said Ileana helps her ambulate to BR with walker. She states she dresses herself.] Discharge Planning Living Arrangements Adult Child(cole) [Lives with daughterIsmael and grandchild] Assistance Needed Patient is alert and able to answer questions. However, she has a telesitter because she has been pulling out her IV's. She staets she lives at home with her daughter, Ismael and grandchild. She ambulates to BR with a walker and she states that recently Ismael has been assisting her. She states she dresses herself and there was concern that patient had the same clothes on for 3 days when she presented to the ER. She has some excoriation to the breast, abdominal fold and matthew area. Nursing states that she required a bed bath upon arrival to unit as she had a foul odor. Aged Or Disabled Carer spoke with daughterIsmael. She is agreeable to skilled care after discharge. Ismael staes that patient now has Medicaid so they will not need to worry about a copay any longer. Lengthy discussion with daughterIsmael regardin gnursing concerns of yeast type rash and no change in clothes for 3 days and her foul odor. Ismael states that her mother is refusing to shower at home and refusing to change her clothes. She states they were just approved for an aid through [employer] services. However, there is no aid availability to send into the home yet. Aged Or Disabled Carer discusses with Ismael that we will haev furhter discussion with patient as well as hygiene can impact health an if she is unable to properly care for herself than we may need to consider protection services. However, at this time dishcarge is planned for SNF. Type of Residence Private residence Private Residence 1 story Can patient reside on one level? Yes Residence Accessibility Steps into home Number of Steps 1 Home Care Services No Type of Home Care Services Nurse visit Community Agencies Currently Utilized [employer] [[place] field case manager and they plan to send an aid when they have availability.] Community Referrals / Resources Provided Denies needs Who is the existing DME Provider? [employer] ([employer]) ([phone]) Established DME Comments Walker, shower chair, and home oxygen at 2 liters Stressors Income Information Income Information Retired/Pension/Social Security IP Hunger/Food Insecurity Screening Within the past 12 months we worried whether our food would run out before we got money to buy more. Never True Within the past 12 months the food we bought just didn't last and we didn't have money to get more. Never True Hunger Screening Complete? Yes Pt. Eligible for Food / Voucher No If Eligible: Received Food Box Not Offered to Patient Warm Handoff Complete Caregiver/Family Member Caregiver/Family Member Ismael notified via phone Caregiver/Family Member Involved with Current Plan of Care Yes Caregiver/Family Member in Agreement with Current Plan of Care Yes Caregiver/Support System Limitations Patient/Caregiver Goals Community Provider Referral Services Requested Patient expects to be discharged to: alf care Does the patient wish to have family/friend/caregiver involved in their discharge planning? Yes Does the patient plan to return home to a community setting? No, patient to discharge to facility-based provider. See Discharge Disposition Discharge Disposition SNF Who is the existing DME Provider? [employer] ([employer]) ) Does the patient need discharge transportation arranged? Yes Transportation Arranged Ambulance Patient choice offered Patient declined List Provided Patient declined Patient Declined Other (must state reason) [Patient states she only wants to go to [place]] DC Planning Complete Discharge Milestones Yes Pharmacy: [facility] PCP: Pam Ley Consulting Providers this admission: Orthopedics for fracture Patient will make her own follow up appointments: no To be made by [facility] Patient Goals: Goals per daughter and patient to SNF (pt-stated) Evaluation of progress towards goal: Patient and daughter agree she will need skilled care as a result of the fracture she has. PT Recommends: Pending evaluation OT Recommends: Pending evaluation Patient denies need for alf facility list. She states she will not ever go to [facility] again. She will only go to [facility]. Tasked transition team to send referral. Plan to prevent readmission: To alf facility. As above lengthy discission with patient and daughter regarding the need for patient to be clean at home and take her showers and change her clothes. Patient/Family do not endorse any questions at this time. Patient Discharge Plan: [facility] (accepted) and pending insurance authorization. Can't submit until we have PT/OT evaluation and recommendation. Patient is WBAT. Plan of Care: [facility] (SNF) [phone] Fax CRF at Discharge Follow up appointments: Orthopedics would like to see patient in two weeks. This was added to AVS for SNF to schedule for patient. Purvi Cardenas RN 05/14/25 1:25 PM [facility] 05-14-2025 Consult note Associated Order (s): IP CONSULT TO ORTHOPEDIC SURGERY CONSULT NOTE: DATE OF ADMISSION 05/13/2025 10:27 AM REASON FOR CONSULTATION: MINIMALLY DISPLACED RT LESS TROCHANTER FRACTURE REFERRING PHYSICIAN No referring provider defined for this encounter. PCP Michael Joiner Jr, DO CHIEF COMPLAINT: Chief Complaint Patient presents with Back Pain Pt presents via ems for right sided back pain from sciatica. Was here yesterday. Daughter called EMS for transport. Pt denies any SOB or CP, but presents at 90% spo2 on 3L/NC. HISTORY OF PRESENT ILLNESS: Cuca Goodwin is a 79 y.o. White or female who presents with persistent right hip pain. Has been seen in ER 4 days in a row prior to admission. CT demonstrated a minimally displaced right lesser trochanter fracture. History of HTN, HLD, previous stroke, CKD, DM, chronic back pain, s/p TAVR, CAD post PCI 2022, severe post TAVR, NHP post shunt, recently admitted for staph bacteremia in February PROBLEM: Principal Problem Acute respiratory failure with hypoxia (CMS-HCC) RT lesser trochanter fracture. PAST MEDICAL HISTORY: Past Medical History: Diagnosis Date Anemia Arthritis Asthma very mild, no inhaler use Cataract Dental disease Depression Diabetes mellitus [place] Diabetes mellitus type 2, controlled ([facility]) Encephalitis Foot fracture, left GERD (gastroesophageal reflux disease) Heart murmur HLD (hyperlipidemia) Hypertension Incontinence Injury of back Insulin dependent diabetes mellitus Kidney failure STAGE 4 Lumbar spondylolysis Murmur Obesity CHELSEA (obstructive sleep apnea) no machine Peptic ulceration Peripheral vascular disease Shortness of breath Stroke ([facility]) 02/27/2024 TIA (transient ischemic attack) Upper respiratory infection UTI (urinary tract infection) Visual impairment Wears dentures PAST SURGICAL HISTORY: Past Surgical History: Procedure Laterality Date BREAST BIOPSY Right 03/01/2023 ULT BIOPSY CATARACT EXTRACTION SECTION SECTION 03/14/1974 EGD N/A 10/17/2019 Performed by Sarai Bell DO at [facility] H-PERCUTANEOUS CORONARY INTERVENTION HYSTEROSCOPY DILATION CURETTAGE MYOSURE N/A 01/29/2021 Performed by Jv Briones MD at [facility] INJECTION BLOCK EPIDURAL CAUDAL STEROID N/A 08/14/2022 Performed by Arnulfo Gonzalez MD at [facility] INJECTION BLOCK EPIDURAL CAUDAL STEROID N/A 06/06/2021 Performed by Arnulfo Gonzalez MD at [facility] INJECTION BLOCK EPIDURAL CAUDAL STEROID N/A 04/25/2021 Performed by Arnulfo Gonzalez MD at [facility] INJECTION CAUDAL EPIDURAL WITH CATHETER, STEROID N/A 05/03/2020 Performed by Arnulfo Gonzalez MD at [facility] INJECTION CAUDAL EPIDURAL WITH CATHETER, STEROID N/A 11/24/2019 Performed by Arnulfo Gonzalez MD at [facility] INJECTION CAUDAL EPIDURAL WITH CATHETER, STEROID N/A 04/21/2019 Performed by Arnulfo Gonzalez MD at [facility] INJECTION MEDIAL BRANCH NERVE BLOCK Bilateral L 4/5, 5/1 Bilateral 08/18/2019 Performed by Arnulfo Gonzalez MD at [facility] MEDIAL BRANCH NERVE BLOCK Bilateral L 4/5, 5/1 Bilateral 06/23/2019 Performed by Arnulfo Gonzalez MD at [facility] STEROID EPI 1 WITH SEDATION Right L 4, 5 NR Right 03/17/2019 Performed by Arnulfo Gonzalez MD at [facility] IN[facility] STEROID EPI 1 WITH SEDATION: right L45 nroot Right 08/15/2018 Performed by Arnulfo Gonzalez MD at [facility] LEFT L4, AND 5 NERVE ROOT INJECTION 2 OF 2 Left 07/22/2018 Performed by Arnulfo Gonzalez MD at [facility] LEFT L4, AND L5 NERVE ROOT 1 OF 2 Left 07/04/2018 Performed by Arnulfo Gonzalez MD at [facility] SHUNT INSERTION TONSILLECTOMY AGE 4 Transcutaneous aortic valve replacement/Transfemoral/Kwan N/A 08/17/2023 Performed by Chava Norris MD at [facility] Valvuloplasty aortic N/A 06/03/2023 Performed by Chava Norris MD at [facility] ALLERGIES: No Known Allergies HOME MEDICATIONS: Medications Prior to Admission Medication Sig Dispense Refill Last Dose/Taking acetaminophen (TYLENOL) 500 mg tablet Take 2 tablets (1,000 mg total) by mouth every 6 (six) hours as needed for pain. Past Week cyanocobalamin 1000 MCG tablet Take 1 tablet (1,000 mcg total) by mouth in the morning. Past Week gabapentin (NEURONTIN) 300 mg capsule Take 2 capsules (600 mg total) by mouth nightly. Past Week gabapentin (NEURONTIN) 300 mg capsule Take 1 capsule (300 mg total) by mouth in the morning. Past Week insulin lispro (HumaLOG) 100 unit/mL insulin pen Inject 2-10 Units under the skin 4 (four) times a day with meals and nightly. 151-200 mg/dL, give 2 units. 201-250 mg/dL, give 4 units. 251-300 mg/dL, give 6 units. 301-350 mg/dL, give 8 units 351-400 mg/dL, give 10 units 15 mL 12 Past Week letrozole (FEMARA) 2.5 mg chemo tablet Take 1 tablet by mouth daily 90 tablet 3 Past Week lidocaine (SALONPAS) 4 % Place 1 patch on the skin daily. 30 patch 0 Past Week mirtazapine (REMERON) 7.5 mg tablet Take 1 tablet (7.5 mg total) by mouth nightly. 90 tablet 1 Past Week nystatin (MYCOSTATIN) powder Apply 1 Application topically in the morning and 1 Application at noon and 1 Application in the evening and 1 Application before bedtime. 60 g 1 Past Week sertraline (ZOLOFT) 100 mg tablet Take 1 tablet (100 mg total) by mouth in the morning. Past Week traMADoL (ULTRAM) 50 mg tablet Take 1 tablet (50 mg total) by mouth every 6 (six) hours as needed for pain for up to 3 days. 12 tablet 0 Past Week traZODone (DESYREL) 100 mg tablet TAKE 1 TABLET BY MOUTH EVERY DAY AT NIGHT (Patient taking differently: Take 1 tablet (100 mg total) by mouth nightly. TAKE 1 TABLET BY MOUTH EVERY DAY AT NIGHT) 90 tablet 1 Past Week insulin aspart U-100 (NovoLOG) 100 unit/mL (3 mL) insulin pen (Patient not taking: Reported on 05/13/2025) Unknown insulin detemir U-100 (LEVEMIR) 100 unit/mL (3 mL) insulin pen Inject 15 Units under the skin nightly. (Patient not taking: Reported on 05/13/2025) 15 mL 12 Unknown SOCIAL HISTORY: Social History Socioeconomic History Marital status: Single [...] Social History Narrative Not on file Social Drivers of Health Financial Resource Strain: Medium Risk (10/28/2024) Overall Financial Resource Strain (CARDIA) Difficulty of Paying Living Expenses: Somewhat hard Food Insecurity: No Food Insecurity (05/14/2025) Hunger Screening Food Insecurity - Worry: Never True Food Insecurity - Inability: Never True Transportation Needs: Unmet Transportation Needs (05/13/2025) PRAPARE - Transportation Lack of Transportation (Medical): No Lack of Transportation (Non-Medical): Yes Physical Activity: Inactive (10/28/2024) Exercise Vital Sign Days of Exercise per Week: 0 days Minutes of Exercise per Session: 0 min Stress: Stress Concern Present (10/28/2024) [employer] - Occupational Stress Questionnaire Feeling of Stress : To some extent Social Connections: Moderately Integrated (10/28/2024) Social Connection and Isolation Panel [NHANES] Frequency of Communication with Friends and Family: Never Frequency of Social Gatherings with Friends and Family: More than three times a week Attends Episcopal Services: More than 4 times per year [...] Risk (05/13/2025) Housing Instability Housing Instability: No FAMILY HISTORY: Family History Problem Relation Age of Onset Diabetes Mother Hypertension Father Coronary artery disease Father No Known Problems Brother Breast cancer Neg Hx PHYSICAL EXAM: Vital Signs Blood pressure 136/70, pulse 101, temperature 36.5 C (97.7 F), temperature source Oral, resp. rate 20, height 165.1 cm (5' 5 ), weight 83.4 kg (183 lb 13.8 oz), SpO2 (!) 89%, not currently . Respiratory Source O2 Device: None (Room air) Admission Weight Weight: 85.7 kg (189 lb) General Appearance: ill appearing, alert, elderly frail Head Normocephalic, without obvious abnormality, atraumatic Eyes conjunctivae/corneas clear. PERRL, EOM's intact. Fundi benign. ENT ENT exam normal, no neck nodes or sinus tenderness Neck no adenopathy, no carotid bruit, no JVD, supple, symmetrical, trachea midline and thyroid not enlarged, symmetric, no tenderness/mass/nodules Lungs normal effort Heart: tachycardia Abdomen soft, non-tender; bowel sounds normal; no masses, no organomegaly Extremities tenderness over right hip, NV intact. No signs of foot drop. Able to flex knee and straight leg raise off the bed slightly. No signs of foot drop. Mild pain with IR/ER of right hip. Skin warm, dry Neurologic: Grossly normal Impression: Mildly displaced fracture of right lesser trochanter Plan: I reviewed CT findings with patient. I discussed treatment options and recommend that she continue with non surgical treatment. She may be WBAT. I do not know how well patient ambulated prior to injury but I recommend PT work with patient but should avoid abduction and adduction of right hip. Follow up with our office in 2 weeks. Please call our office to schedule prior to discharge at [phone] hip right without contrast Result Date: 05/13/2025 Study: CT right hip History:Pain sepsis [...] Chester Parra MD on 05/13/2025 1:01 PM Lab Review Recent Results (from the past 48 hours) Extra Urine Collection Time: 05/12/25 1:01 PM Specimen: Urine, Clean Catch Midstream Result Value Ref Range Extra Tube Auto Resulted Extra Urine Culture Collection Time: 05/12/25 1:01 PM Specimen: Urine, Clean Catch Midstream Result Value Ref Range Extra Tube Auto Resulted Extra Urine [place] Collection Time: 05/12/25 1:01 PM Specimen: Urine, Clean Catch Midstream Result Value Ref Range Extra Tube Auto Resulted Urine Culture Urine, Clean Catch Midstream Collection Time: 05/12/25 1:01 PM Specimen: Urine, Clean Catch Midstream Result Value Ref Range CULTURE RESULTS NO GROWTH AT <1000 CFU/mL POCT Nursing Urine Macroscopic UA Collection Time: 05/12/25 1:12 PM Result Value Ref Range POC Urine Specific [place] 1.015 1.010, 1.015, 1.020, 1.025 POC Urine Leukocyte Esterase Negative Negative POC Urine Nitrite Negative Negative POC Urine pH 5.5 5.0, 6.0, 6.5, 7.0, 7.5, 8.0, 8.5, 5.5 POC Urine Protein Negative Negative POC Urine Glucose 500 mg/dL (A) Negative POC Urine Ketones Negative Negative POC Urine Urobilinogen 0.2 E.U./dL POC Urine Bilirubin Negative Negative POC Urine Blood/HGB Negative Negative CBC auto differential Collection Time: 05/13/25 10:55 AM Result Value Ref Range WBC 9.0 4 - 11 x10E9/L RBC Count 4.27 3.8 - 5.2 X10E12/L Hemoglobin 11.8 11.7 - 15.5 g/dL Hematocrit 36.0 35 - 47 % MCV 84 80 - 100 fL MCH 27.5 27 - 34 pg MCHC 32.7 32 - 36 g/dL RDW 15.8 (H) 11.5 - 15 % Platelet Count 266 150 - 450 X10E9/L MPV 8.4 7 - 12 fL Neutrophils % 68.8 % Lymphocytes % 18.7 % Monocytes % 10.3 % Eosinophils % 1.6 % Basophils % 0.6 % Neutrophils Absolute (A) 6.2 1.5 - 6.6 10*3/uL Lymphocytes Absolute 1.7 1.0 - 3.5 10*3/uL Monocytes Absolute 0.9 0.0 - 0.9 10*3/uL Eosinophils Absolute 0.1 0.0 - 0.4 10*3/uL Basophils Absolute 0.1 0.0 - 0.2 10*3/uL Differential Type AUTOMATED DIFFERENTIAL Comprehensive metabolic panel Collection Time: 05/13/25 10:55 AM Result Value Ref Range SODIUM 134 134 - 146 mmol/L POTASSIUM 4.7 3.5 - 5.0 mmol/L CHLORIDE 101 98 - 109 mmol/L CARBON DIOXIDE 23 22 - 32 mmol/L ANION GAP 10 5 - 15 mmol/L BLOOD UREA NITROGEN 31 (H) 5 - 27 mg/dL CREATININE 1.41 (H) 0.40 - 1.00 mg/dL GLUCOSE 300 (H) 65 - 99 mg/dL CALCIUM 9.5 8.5 - 10.5 mg/dL TOTAL PROTEIN 8.2 (H) 6.0 - 8.0 g/dL ALBUMIN 3.6 3.2 - 5.3 g/dL ALKALINE PHOSPHATASE 160 (H) 39 - 130 U/L AST 31 <=41 U/L ALT 18 <=31 U/L BILIRUBIN,TOTAL 0.5 0.3 - 1.2 mg/dL EGFR Non-Race Dependent 38 (L) >=60 ml/min/1.73sq.m Troponin I, High Sensitivity Collection Time: 05/13/25 10:55 AM Narrative The following orders were created for panel order Troponin I, High Sensitivity. Procedure Abnormality Status --------- ------ Troponin I, High Sensiti...[[id number]] Abnormal Final result Troponin I, High Sensiti...[[id number]] Abnormal Final result Please view results for these tests on the individual orders. Troponin I, High Sensitivity 0 Hour Collection Time: 05/13/25 10:55 AM Result Value Ref Range TROPONIN I, HIGH SENSITIVITY 35 (H) <16 ng/L Lactate w/ Reflex Collection Time: 05/13/25 10:55 AM Result Value Ref Range LACTATE W/REFLEX 1.5 0.4 - 2.0 mmol/L Narrative Result did not trigger repeat Lactate, re-order if needed. C-reactive protein Collection Time: 05/13/25 10:55 AM Result Value Ref Range C REACTIVE PROTEIN 6.1 (H) <=0.7 mg/dL Procalcitonin Collection Time: 05/13/25 10:55 AM Result Value Ref Range PROCALCITONIN 0.05 (H) <0.05 ng/mL Narrative <0.50 ng/mL - Low risk of severe sepsis and/or septic shock. <2.00 ng/mL - Recommend retesting within 6-24 hours. >2.00 ng/mL - High risk of sepsis and/or septic shock. Blood culture Collection Time: 05/13/25 11:08 AM Specimen: Blood, Venous Result Value Ref Range CULTURE RESULTS NO GROWTH <24 HRS Narrative Only aerobic bottle received B-type natriuretic peptide Collection Time: 05/13/25 11:09 AM Result Value Ref Range BNP 602 (H) <=100 pg/mL Blood culture Collection Time: 05/13/25 11:09 AM Specimen: Blood, Venous Result Value Ref Range CULTURE RESULTS NO GROWTH <24 HRS Extra Tubes Collection Time: 05/13/25 11:09 AM Narrative The following orders were created for panel order Extra Tubes. Procedure Abnormality Status --------- ------ Light Blue Top[[id number]] Final result Please view results for these tests on the individual orders. Light Blue Top Collection Time: 05/13/25 11:09 AM Result Value Ref Range Extra Tube Auto Resulted Blood Gas, Arterial Collection Time: 05/13/25 11:21 AM Result Value Ref Range Sample type ARTERIAL pH, Arterial 7.349 (L) 7.350 - 7.450 pCO2, Arterial 41.4 35.0 - 45.0 mmHg PO2, Arterial 67 (L) 80 - 100 mmHg Base, Deficit -3.0 (L) 0.0 - 2.0 mmol/L HCO3, Arterial 22.8 22.0 - 26.0 mmol/L %O2 Saturation, Arterial 92.0 >90.0 % Tato's test N/A SPO2 67 % Sample site L Rad Source Of Oxygen NC Troponin I, High Sensitivity 1 Hour Collection Time: 05/13/25 12:03 PM Result Value Ref Range TROPONIN I, HIGH SENSITIVITY 26 (H) <16 ng/L Narrative Elevations of hs-Troponin may be due to causes other than myocardial ischemia. Recommend serial hs-Troponin testing be performed. For the initial evaluation and management of chest pain patients, refer to the algorithms linked below. Emergency Patient: [email or web address]: [email or web address] Bedside Glucose *Place/Obtain serum glucose if >500 per glucometer. Collection Time: 05/13/25 2:39 PM Result Value Ref Range Bedside Glucose (POC) 384 (H) 65 - 99 mg/dL Extra Tubes Collection Time: 05/13/25 7:54 PM Narrative The following orders were created for panel order Extra Tubes. Procedure Abnormality Status --------- ------ PST TOP[[id number]] Final result Please view results for these tests on the individual orders. PST TOP Collection Time: 05/13/25 7:54 PM Result Value Ref Range Extra Tube Auto Resulted APTT Collection Time: 05/13/25 7:55 PM Result Value Ref Range APTT 30 26 - 37 sec Hemoglobin Collection Time: 05/13/25 7:55 PM Result Value Ref Range Hemoglobin 11.5 (L) 11.7 - 15.5 g/dL Platelet count Collection Time: 05/13/25 7:55 PM Result Value Ref Range Platelet Count 214 150 - 450 X10E9/L MPV 8.3 7 - 12 fL Bedside Glucose *Place/Obtain serum glucose if >500 per glucometer. Collection Time: 05/13/25 9:31 PM Result Value Ref Range Bedside Glucose (POC) 256 (H) 65 - 99 mg/dL CBC auto differential Collection Time: 05/14/25 4:13 AM Result Value Ref Range WBC 7.6 4 - 11 x10E9/L RBC Count 3.65 (L) 3.8 - 5.2 X10E12/L Hemoglobin 10.3 (L) 11.7 - 15.5 g/dL Hematocrit 30.6 (L) 35 - 47 % MCV 84 80 - 100 fL MCH 28.1 27 - 34 pg MCHC 33.5 32 - 36 g/dL RDW 15.5 (H) 11.5 - 15 % Platelet Count 166 150 - 450 X10E9/L MPV 8.7 7 - 12 fL Neutrophils % 55.9 % Lymphocytes % 23.9 % Monocytes % 12.9 % Eosinophils % 6.6 % Basophils % 0.7 % Neutrophils Absolute (A) 4.2 1.5 - 6.6 10*3/uL Lymphocytes Absolute 1.8 1.0 - 3.5 10*3/uL Monocytes Absolute 1.0 (H) 0.0 - 0.9 10*3/uL Eosinophils Absolute 0.5 (H) 0.0 - 0.4 10*3/uL Basophils Absolute 0.1 0.0 - 0.2 10*3/uL Differential Type AUTOMATED DIFFERENTIAL Comprehensive metabolic panel Collection Time: 05/14/25 4:14 AM Result Value Ref Range SODIUM 139 134 - 146 mmol/L POTASSIUM 4.4 3.5 - 5.0 mmol/L CHLORIDE 108 98 - 109 mmol/L CARBON DIOXIDE 22 22 - 32 mmol/L ANION GAP 9 5 - 15 mmol/L BLOOD UREA NITROGEN 27 5 - 27 mg/dL CREATININE 1.30 (H) 0.40 - 1.00 mg/dL GLUCOSE 148 (H) 65 - 99 mg/dL CALCIUM 9.0 8.5 - 10.5 mg/dL TOTAL PROTEIN 6.6 6.0 - 8.0 g/dL ALBUMIN 2.9 (L) 3.2 - 5.3 g/dL ALKALINE PHOSPHATASE 128 39 - 130 U/L AST 23 <=41 U/L ALT 14 <=31 U/L BILIRUBIN,TOTAL 0.6 0.3 - 1.2 mg/dL EGFR Non-Race Dependent 42 (L) >=60 ml/min/1.73sq.m Magnesium Collection Time: 05/14/25 4:14 AM Result Value Ref Range MAGNESIUM 1.6 (L) 1.8 - 2.6 mg/dL Bedside Glucose *Place/Obtain serum glucose if >500 per glucometer. Collection Time: 05/14/25 11:26 AM Result Value Ref Range Bedside Glucose (POC) 223 (H) 65 - 99 mg/dL Microbiology Results Procedure Component Value Units Date/Time Blood culture [[id number]] Collected: 05/13/25 1109 Specimen: Blood, Venous Updated: 05/14/25 1002 CULTURE RESULTS NO GROWTH <24 HRS Blood culture [[id number]] Collected: 05/13/25 1108 Specimen: Blood, Venous Updated: 05/14/25 1002 CULTURE RESULTS NO GROWTH <24 HRS Narrative: Only aerobic bottle received Urine Culture Urine, Clean Catch Midstream [[id number]] Collected: 05/12/25 1301 Specimen: Urine, Clean Catch Midstream Updated: 05/13/25 1839 CULTURE RESULTS NO GROWTH AT <1000 CFU/mL DAGO SCHAEFER APRN-KAIDEN Kim 05/14/25 1231 [employer] Work Phone: 05-14-2025 Consult note Associated Order (s): IP CONSULT TO ORTHOPEDIC SURGERY CONSULT NOTE: DATE OF ADMISSION 05/13/2025 10:27 AM REASON FOR CONSULTATION: MINIMALLY DISPLACED RT LESS TROCHANTER FRACTURE REFERRING PHYSICIAN No referring provider defined for this encounter. PCP Michael Joiner Jr, DO CHIEF COMPLAINT: Chief Complaint Patient presents with Back Pain Pt presents via ems for right sided back pain from sciatica. Was here yesterday. Daughter called EMS for transport. Pt denies any SOB or CP, but presents at 90% spo2 on 3L/NC. HISTORY OF PRESENT ILLNESS: Cuca Goodwin is a 79 y.o. White or female who presents with persistent right hip pain. Has been seen in ER 4 days in a row prior to admission. CT demonstrated a minimally displaced right lesser trochanter fracture. History of HTN, HLD, previous stroke, CKD, DM, chronic back pain, s/p TAVR, CAD post PCI 2022, severe post TAVR, NHP post shunt, recently admitted for staph bacteremia in February PROBLEM: Principal Problem Acute respiratory failure with hypoxia [place] [place] RT lesser trochanter fracture. PAST MEDICAL HISTORY: Past Medical History: Diagnosis Date Anemia Arthritis Asthma very mild, no inhaler use Cataract Dental disease Depression Diabetes mellitus ([facility]) Diabetes mellitus type 2, controlled ([facility] [place] Encephalitis Foot fracture, left GERD (gastroesophageal reflux disease) Heart murmur HLD (hyperlipidemia) Hypertension Incontinence Injury of back Insulin dependent diabetes mellitus Kidney failure STAGE 4 Lumbar spondylolysis Murmur Obesity CHELSEA (obstructive sleep apnea) no machine Peptic ulceration Peripheral vascular disease Shortness of breath Stroke ([facility] [place]) 02/27/2024 TIA (transient ischemic attack) Upper respiratory infection UTI (urinary tract infection) Visual impairment Wears dentures PAST SURGICAL HISTORY: Past Surgical History: Procedure Laterality Date BREAST BIOPSY Right 03/01/2023 ULT BIOPSY CATARACT EXTRACTION SECTION SECTION 03/14/1974 EGD N/A 10/17/2019 Performed by Sarai Bell DO at [facility] H-PERCUTANEOUS CORONARY INTERVENTION HYSTEROSCOPY DILATION CURETTAGE MYOSURE N/A 01/29/2021 Performed by Jv Briones MD at [facility] INJECTION BLOCK EPIDURAL CAUDAL STEROID N/A 08/14/2022 Performed by Arnulfo Gonzalez MD at [facility] INJECTION BLOCK EPIDURAL CAUDAL STEROID N/A 06/06/2021 Performed by Arnulfo Gonzalez MD at [facility] INJECTION BLOCK EPIDURAL CAUDAL STEROID N/A 04/25/2021 Performed by Arnulfo Gonzalez MD at [facility] INJECTION CAUDAL EPIDURAL WITH CATHETER, STEROID N/A 05/03/2020 Performed by Arnulfo Gonzalez MD at [facility] INJECTION CAUDAL EPIDURAL WITH CATHETER, STEROID N/A 11/24/2019 Performed by Arnulfo Gonzalez MD at [facility] INJECTION CAUDAL EPIDURAL WITH CATHETER, STEROID N/A 04/21/2019 Performed by Arnulfo Gonzalez MD at [facility] INJECTION MEDIAL BRANCH NERVE BLOCK Bilateral L 4/5, 5/1 Bilateral 08/18/2019 Performed by Arnulfo Gonzalez MD at [facility] INJECTION MEDIAL BRANCH NERVE BLOCK Bilateral L 4/5, 5/1 Bilateral 06/23/2019 Performed by Arnulfo Gonzalez MD at [facility] INJECTION STEROID EPI 1 WITH SEDATION Right L 4, 5 NR Right 03/17/2019 Performed by Arnulfo Gonzalez MD at [facility] INJECTION STEROID EPI 1 WITH SEDATION: right L45 nroot Right 08/15/2018 Performed by Arnulfo Gonzalez MD at [facility] LEFT L4, AND 5 NERVE ROOT INJECTION 2 OF 2 Left 07/22/2018 Performed by Arnulfo Gonzalez MD at [facility] LEFT L4, AND L5 NERVE ROOT 1 OF 2 Left 07/04/2018 Performed by Arnulfo Gonzalez MD at [facility] SHUNT INSERTION TONSILLECTOMY AGE 4 Transcutaneous aortic valve replacement/Transfemoral/Kwan N/A 08/17/2023 Performed by Chava Norris MD at [facility] Valvuloplasty aortic N/A 06/03/2023 Performed by Chava Norris MD at [facility] ALLERGIES: No Known Allergies HOME MEDICATIONS: Medications Prior to Admission Medication Sig Dispense Refill Last Dose/Taking acetaminophen (TYLENOL) 500 mg tablet Take 2 tablets (1,000 mg total) by mouth every 6 (six) hours as needed for pain. Past Week cyanocobalamin 1000 MCG tablet Take 1 tablet (1,000 mcg total) by mouth in the morning. Past Week gabapentin (NEURONTIN) 300 mg capsule Take 2 capsules (600 mg total) by mouth nightly. Past Week gabapentin (NEURONTIN) 300 mg capsule Take 1 capsule (300 mg total) by mouth in the morning. Past Week insulin lispro (HumaLOG) 100 unit/mL insulin pen Inject 2-10 Units under the skin 4 (four) times a day with meals and nightly. 151-200 mg/dL, give 2 units. 201-250 mg/dL, give 4 units. 251-300 mg/dL, give 6 units. 301-350 mg/dL, give 8 units 351-400 mg/dL, give 10 units 15 mL 12 Past Week letrozole (FEMARA) 2.5 mg chemo tablet Take 1 tablet by mouth daily 90 tablet 3 Past Week lidocaine (SALONPAS) 4 % Place 1 patch on the skin daily. 30 patch 0 Past Week mirtazapine (REMERON) 7.5 mg tablet Take 1 tablet (7.5 mg total) by mouth nightly. 90 tablet 1 Past Week nystatin (MYCOSTATIN) powder Apply 1 Application topically in the morning and 1 Application at noon and 1 Application in the evening and 1 Application before bedtime. 60 g 1 Past Week sertraline (ZOLOFT) 100 mg tablet Take 1 tablet (100 mg total) by mouth in the morning. Past Week traMADoL (ULTRAM) 50 mg tablet Take 1 tablet (50 mg total) by mouth every 6 (six) hours as needed for pain for up to 3 days. 12 tablet 0 Past Week traZODone (DESYREL) 100 mg tablet TAKE 1 TABLET BY MOUTH EVERY DAY AT NIGHT (Patient taking differently: Take 1 tablet (100 mg total) by mouth nightly. TAKE 1 TABLET BY MOUTH EVERY DAY AT NIGHT) 90 tablet 1 Past Week insulin aspart U-100 (NovoLOG) 100 unit/mL (3 mL) insulin pen (Patient not taking: Reported on 05/13/2025) Unknown insulin detemir U-100 (LEVEMIR) 100 unit/mL (3 mL) insulin pen Inject 15 Units under the skin nightly. (Patient not taking: Reported on 05/13/2025) 15 mL 12 Unknown SOCIAL HISTORY: Social History Socioeconomic History Marital status: Single [...] Social History Narrative Not on file Social Drivers of Health Financial Resource Strain: Medium Risk (10/28/2024) Overall Financial Resource Strain (CARDIA) Difficulty of Paying Living Expenses: Somewhat hard Food Insecurity: No Food Insecurity (05/14/2025) Hunger Screening Food Insecurity - Worry: Never True Food Insecurity - Inability: Never True Transportation Needs: Unmet Transportation Needs (05/13/2025) PRAPARE - Transportation Lack of Transportation (Medical): No Lack of Transportation (Non-Medical): Yes Physical Activity: Inactive (10/28/2024) Exercise Vital Sign Days of Exercise per Week: 0 days Minutes of Exercise per Session: 0 min Stress: Stress Concern Present (10/28/2024) [employer] - Occupational Stress Questionnaire Feeling of Stress : To some extent Social Connections: Moderately Integrated (10/28/2024) Social Connection and Isolation Panel [NHANES] Frequency of Communication with Friends and Family: Never Frequency of Social Gatherings with Friends and Family: More than three times a week Attends Episcopal Services: More than 4 times per year [...] Risk (05/13/2025) Housing Instability Housing Instability: No FAMILY HISTORY: Family History Problem Relation Age of Onset Diabetes Mother Hypertension Father Coronary artery disease Father No Known Problems Brother Breast cancer Neg Hx PHYSICAL EXAM: Vital Signs Blood pressure 136/70, pulse 101, temperature 36.5 C (97.7 F), temperature source Oral, resp. rate 20, height 165.1 cm (5' 5 ), weight 83.4 kg (183 lb 13.8 oz), SpO2 (!) 89%, not currently . Respiratory Source O2 Device: None (Room air) Admission Weight Weight: 85.7 kg (189 lb) General Appearance: ill appearing, alert, elderly frail Head Normocephalic, without obvious abnormality, atraumatic Eyes conjunctivae/corneas clear. PERRL, EOM's intact. Fundi benign. ENT ENT exam normal, no neck nodes or sinus tenderness Neck no adenopathy, no carotid bruit, no JVD, supple, symmetrical, trachea midline and thyroid not enlarged, symmetric, no tenderness/mass/nodules Lungs normal effort Heart: tachycardia Abdomen soft, non-tender; bowel sounds normal; no masses, no organomegaly Extremities tenderness over right hip, NV intact. No signs of foot drop. Able to flex knee and straight leg raise off the bed slightly. No signs of foot drop. Mild pain with IR/ER of right hip. Skin warm, dry Neurologic: Grossly normal Impression: Mildly displaced fracture of right lesser trochanter Plan: I reviewed CT findings with patient. I discussed treatment options and recommend that she continue with non surgical treatment. She may be WBAT. I do not know how well patient ambulated prior to injury but I recommend PT work with patient but should avoid abduction and adduction of right hip. Follow up with our office in 2 weeks. Please call our office to schedule prior to discharge at [phone] hip right without contrast Result Date: 05/13/2025 Study: CT right hip History:Pain sepsis [...] Chester Parra MD on 05/13/2025 1:01 PM Lab Review Recent Results (from the past 48 hours) Extra Urine Collection Time: 05/12/25 1:01 PM Specimen: Urine, Clean Catch Midstream Result Value Ref Range Extra Tube Auto Resulted Extra Urine Culture Collection Time: 05/12/25 1:01 PM Specimen: Urine, Clean Catch Midstream Result Value Ref Range Extra Tube Auto Resulted Extra Urine [place] Collection Time: 05/12/25 1:01 PM Specimen: Urine, Clean Catch Midstream Result Value Ref Range Extra Tube Auto Resulted Urine Culture Urine, Clean Catch Midstream Collection Time: 05/12/25 1:01 PM Specimen: Urine, Clean Catch Midstream Result Value Ref Range CULTURE RESULTS NO GROWTH AT <1000 CFU/mL POCT Nursing Urine Macroscopic UA Collection Time: 05/12/25 1:12 PM Result Value Ref Range POC Urine Specific [place] 1.015 1.010, 1.015, 1.020, 1.025 POC Urine Leukocyte Esterase Negative Negative POC Urine Nitrite Negative Negative POC Urine pH 5.5 5.0, 6.0, 6.5, 7.0, 7.5, 8.0, 8.5, 5.5 POC Urine Protein Negative Negative POC Urine Glucose 500 mg/dL (A) Negative POC Urine Ketones Negative Negative POC Urine Urobilinogen 0.2 E.U./dL POC Urine Bilirubin Negative Negative POC Urine Blood/HGB Negative Negative CBC auto differential Collection Time: 05/13/25 10:55 AM Result Value Ref Range WBC 9.0 4 - 11 x10E9/L RBC Count 4.27 3.8 - 5.2 X10E12/L Hemoglobin 11.8 11.7 - 15.5 g/dL Hematocrit 36.0 35 - 47 % MCV 84 80 - 100 fL MCH 27.5 27 - 34 pg MCHC 32.7 32 - 36 g/dL RDW 15.8 (H) 11.5 - 15 % Platelet Count 266 150 - 450 X10E9/L MPV 8.4 7 - 12 fL Neutrophils % 68.8 % Lymphocytes % 18.7 % Monocytes % 10.3 % Eosinophils % 1.6 % Basophils % 0.6 % Neutrophils Absolute (A) 6.2 1.5 - 6.6 10*3/uL Lymphocytes Absolute 1.7 1.0 - 3.5 10*3/uL Monocytes Absolute 0.9 0.0 - 0.9 10*3/uL Eosinophils Absolute 0.1 0.0 - 0.4 10*3/uL Basophils Absolute 0.1 0.0 - 0.2 10*3/uL Differential Type AUTOMATED DIFFERENTIAL Comprehensive metabolic panel Collection Time: 05/13/25 10:55 AM Result Value Ref Range SODIUM 134 134 - 146 mmol/L POTASSIUM 4.7 3.5 - 5.0 mmol/L CHLORIDE 101 98 - 109 mmol/L CARBON DIOXIDE 23 22 - 32 mmol/L ANION GAP 10 5 - 15 mmol/L BLOOD UREA NITROGEN 31 (H) 5 - 27 mg/dL CREATININE 1.41 (H) 0.40 - 1.00 mg/dL GLUCOSE 300 (H) 65 - 99 mg/dL CALCIUM 9.5 8.5 - 10.5 mg/dL TOTAL PROTEIN 8.2 (H) 6.0 - 8.0 g/dL ALBUMIN 3.6 3.2 - 5.3 g/dL ALKALINE PHOSPHATASE 160 (H) 39 - 130 U/L AST 31 <=41 U/L ALT 18 <=31 U/L BILIRUBIN,TOTAL 0.5 0.3 - 1.2 mg/dL EGFR Non-Race Dependent 38 (L) >=60 ml/min/1.73sq.m Troponin I, High Sensitivity Collection Time: 05/13/25 10:55 AM Narrative The following orders were created for panel order Troponin I, High Sensitivity. Procedure Abnormality Status --------- ------ Troponin I, High Sensiti...[[id number]] Abnormal Final result Troponin I, High Sensiti...[[id number]] Abnormal Final result Please view results for these tests on the individual orders. Troponin I, High Sensitivity 0 Hour Collection Time: 05/13/25 10:55 AM Result Value Ref Range TROPONIN I, HIGH SENSITIVITY 35 (H) <16 ng/L Lactate w/ Reflex Collection Time: 05/13/25 10:55 AM Result Value Ref Range LACTATE W/REFLEX 1.5 0.4 - 2.0 mmol/L Narrative Result did not trigger repeat Lactate, re-order if needed. C-reactive protein Collection Time: 05/13/25 10:55 AM Result Value Ref Range C REACTIVE PROTEIN 6.1 (H) <=0.7 mg/dL Procalcitonin Collection Time: 05/13/25 10:55 AM Result Value Ref Range PROCALCITONIN 0.05 (H) <0.05 ng/mL Narrative <0.50 ng/mL - Low risk of severe sepsis and/or septic shock. <2.00 ng/mL - Recommend retesting within 6-24 hours. >2.00 ng/mL - High risk of sepsis and/or septic shock. Blood culture Collection Time: 05/13/25 11:08 AM Specimen: Blood, Venous Result Value Ref Range CULTURE RESULTS NO GROWTH <24 HRS Narrative Only aerobic bottle received B-type natriuretic peptide Collection Time: 05/13/25 11:09 AM Result Value Ref Range BNP 602 (H) <=100 pg/mL Blood culture Collection Time: 05/13/25 11:09 AM Specimen: Blood, Venous Result Value Ref Range CULTURE RESULTS NO GROWTH <24 HRS Extra Tubes Collection Time: 05/13/25 11:09 AM Narrative The following orders were created for panel order Extra Tubes. Procedure Abnormality Status --------- ------ Light Blue Top[[id number]] Final result Please view results for these tests on the individual orders. Light Blue Top Collection Time: 05/13/25 11:09 AM Result Value Ref Range Extra Tube Auto Resulted Blood Gas, Arterial Collection Time: 05/13/25 11:21 AM Result Value Ref Range Sample type ARTERIAL pH, Arterial 7.349 (L) 7.350 - 7.450 pCO2, Arterial 41.4 35.0 - 45.0 mmHg PO2, Arterial 67 (L) 80 - 100 mmHg Base, Deficit -3.0 (L) 0.0 - 2.0 mmol/L HCO3, Arterial 22.8 22.0 - 26.0 mmol/L %O2 Saturation, Arterial 92.0 >90.0 % Tato's test N/A SPO2 67 % Sample site L Rad Source Of Oxygen NC Troponin I, High Sensitivity 1 Hour Collection Time: 05/13/25 12:03 PM Result Value Ref Range TROPONIN I, HIGH SENSITIVITY 26 (H) <16 ng/L Narrative Elevations of hs-Troponin may be due to causes other than myocardial ischemia. Recommend serial hs-Troponin testing be performed. For the initial evaluation and management of chest pain patients, refer to the algorithms linked below. Emergency Patient: [email or web address]: [email or web address] Bedside Glucose *Place/Obtain serum glucose if >500 per glucometer. Collection Time: 05/13/25 2:39 PM Result Value Ref Range Bedside Glucose (POC) 384 (H) 65 - 99 mg/dL Extra Tubes Collection Time: 05/13/25 7:54 PM Narrative The following orders were created for panel order Extra Tubes. Procedure Abnormality Status --------- ------ PST TOP[[id number]] Final result Please view results for these tests on the individual orders. PST TOP Collection Time: 05/13/25 7:54 PM Result Value Ref Range Extra Tube Auto Resulted APTT Collection Time: 05/13/25 7:55 PM Result Value Ref Range APTT 30 26 - 37 sec Hemoglobin Collection Time: 05/13/25 7:55 PM Result Value Ref Range Hemoglobin 11.5 (L) 11.7 - 15.5 g/dL Platelet count Collection Time: 05/13/25 7:55 PM Result Value Ref Range Platelet Count 214 150 - 450 X10E9/L MPV 8.3 7 - 12 fL Bedside Glucose *Place/Obtain serum glucose if >500 per glucometer. Collection Time: 05/13/25 9:31 PM Result Value Ref Range Bedside Glucose (POC) 256 (H) 65 - 99 mg/dL CBC auto differential Collection Time: 05/14/25 4:13 AM Result Value Ref Range WBC 7.6 4 - 11 x10E9/L RBC Count 3.65 (L) 3.8 - 5.2 X10E12/L Hemoglobin 10.3 (L) 11.7 - 15.5 g/dL Hematocrit 30.6 (L) 35 - 47 % MCV 84 80 - 100 fL MCH 28.1 27 - 34 pg MCHC 33.5 32 - 36 g/dL RDW 15.5 (H) 11.5 - 15 % Platelet Count 166 150 - 450 X10E9/L MPV 8.7 7 - 12 fL Neutrophils % 55.9 % Lymphocytes % 23.9 % Monocytes % 12.9 % Eosinophils % 6.6 % Basophils % 0.7 % Neutrophils Absolute (A) 4.2 1.5 - 6.6 10*3/uL Lymphocytes Absolute 1.8 1.0 - 3.5 10*3/uL Monocytes Absolute 1.0 (H) 0.0 - 0.9 10*3/uL Eosinophils Absolute 0.5 (H) 0.0 - 0.4 10*3/uL Basophils Absolute 0.1 0.0 - 0.2 10*3/uL Differential Type AUTOMATED DIFFERENTIAL Comprehensive metabolic panel Collection Time: 05/14/25 4:14 AM Result Value Ref Range SODIUM 139 134 - 146 mmol/L POTASSIUM 4.4 3.5 - 5.0 mmol/L CHLORIDE 108 98 - 109 mmol/L CARBON DIOXIDE 22 22 - 32 mmol/L ANION GAP 9 5 - 15 mmol/L BLOOD UREA NITROGEN 27 5 - 27 mg/dL CREATININE 1.30 (H) 0.40 - 1.00 mg/dL GLUCOSE 148 (H) 65 - 99 mg/dL CALCIUM 9.0 8.5 - 10.5 mg/dL TOTAL PROTEIN 6.6 6.0 - 8.0 g/dL ALBUMIN 2.9 (L) 3.2 - 5.3 g/dL ALKALINE PHOSPHATASE 128 39 - 130 U/L AST 23 <=41 U/L ALT 14 <=31 U/L BILIRUBIN,TOTAL 0.6 0.3 - 1.2 mg/dL EGFR Non-Race Dependent 42 (L) >=60 ml/min/1.73sq.m Magnesium Collection Time: 05/14/25 4:14 AM Result Value Ref Range MAGNESIUM 1.6 (L) 1.8 - 2.6 mg/dL Bedside Glucose *Place/Obtain serum glucose if >500 per glucometer. Collection Time: 05/14/25 11:26 AM Result Value Ref Range Bedside Glucose (POC) 223 (H) 65 - 99 mg/dL Microbiology Results Procedure Component Value Units Date/Time Blood culture [[id number]] Collected: 05/13/25 1109 Specimen: Blood, Venous Updated: 05/14/25 1002 CULTURE RESULTS NO GROWTH <24 HRS Blood culture [[id number]] Collected: 05/13/25 1108 Specimen: Blood, Venous Updated: 05/14/25 1002 CULTURE RESULTS NO GROWTH <24 HRS Narrative: Only aerobic bottle received Urine Culture Urine, Clean Catch Midstream [[id number]] Collected: 05/12/25 1301 Specimen: Urine, Clean Catch Midstream Updated: 05/13/25 1839 CULTURE RESULTS NO GROWTH AT <1000 CFU/mL DAGO SCHAEFER APRN-KAIDEN Kim 05/14/25 1231 Associated Order(s): PHARMACY TO DOSE VANCO Pharmacokinetic Consult - Vancomycin Dosing Cuca Goodwin is a 79 y.o. female for whom pharmacy has been consulted for vancomycin dosing for sepsis Today is day 1 of vancomycin therapy. Relevant clinical data and objective history reviewed: Allergies: Patient has no known allergies. Results from last 3 days Lab Units 05/13/25 1055 05/12/25 1124 CREATININE mg/dL 1.41* 1.37* BUN mg/dL 31* 25 WBC x10E9/L 9.0 6.8 HEMOGLOBIN g/dL 11.8 10.6* HEMATOCRIT % 36.0 32.5* MCV fL 84 84 Temp Readings from Last 3 Encounters: 05/13/25 36.8 C (98.3 F) 05/12/25 36.9 C (98.5 F) 05/11/25 36.5 C (97.7 F) (Oral) Renal Parameters: No intake/output data recorded. Calculated CrCl (IBW): 29.6ml/min Culture Data: Microbiology Results Procedure Component Value Units Date/Time Blood culture [[id number]] Collected: 05/13/25 1109 Specimen: Blood, Venous Updated: 05/13/25 1122 Blood culture [[id number]] Collected: 05/13/25 1108 Specimen: Blood, Venous Updated: 05/13/25 1122 Urine Culture Urine, Clean Catch Midstream [[id number]] Collected: 05/12/25 1301 Specimen: Urine, Clean Catch Midstream Updated: 05/12/25 1359 Concurrent Antibiotics: Anti-infectives (From admission, onward) Start Dose/Rate Route Frequency Ordered Stop 05/13/25 1600 piperacillin-tazobactam (ZOSYN) IVPB 3.375 g/50 mL in iso-osmotic dextrose (67.5 mg/mL premix) 3.375 g 12.5 mL/hr over 4 Hours intravenous Every 8 hours 05/13/25 1445 05/13/25 1140 vancomycin (VANCOCIN) 1,750 mg in sodium chloride 0.9 % 500 mL IVPB W/ADAPTER Placed in And Linked Group 20 mg/kg 85.7 kg 250 mL/hr over 120 Minutes intravenous Once 05/13/25 1107 Recent Vancomycin Serum Concentrations: Indication: Sepsis Goal Vancomycin Range: AUC 400-600 mcg*hr/mL Assessment Vancomycin 1,750mg given in ER at 1326 Calculations WT= 85.7kg Vd= 59.99L Crcl= 29.6ml/min CL= 1.776L/HR Ke= 0.0296hrs- T 1/2= 23.4hrs Plan Recommend to dose at 1,250mg every 36hrs. Monitor BUN/Scr daily and draw peak and trough around 3rd dose. Pharmacy Dosing Service to follow serum concentrations and adjust as needed based on the patient's clinical status. Thank you for consulting. Joie Garcia RPH documented in this encounter [facility] 05-14-2025 Progress note Formatting of t his note might be different from the original. DISCHARGE PLANNING NOTE Referral sent to. [facility] [place], [place] (P# ; F# ) [facility] 05-14-2025 Progress note Formatting of t his note is different from the original. Physical Therapy PT Type of Visit: (P) Medical deferral Reason For Medical Deferral: (P) Provider input needed (Await ortho consult for weightbearing status.) PT will continue to follow this patient. RN aware that therapy awaits weightbearing status. Thank you for this referral. [facility] 05-14-2025 Plan of care note Problem: Pain Goal: Patient goal is pain score less than 4, able to rest, and participant in treatment plan as appropriate Description: INTERVENTIONS: 1. Encourage patient or legal sales account representative to report early pain and ask for pain medicine when needed 2. Assess pain using appropriate pain scale and include the scale used when documenting 3. Administer analgesics based on type and severity of pain and evaluate response within appropriate time frame 4. Implement non-pharmacological measures as appropriate and evaluate response 5. Consider cultural and social influences on pain and pain management 6. Notify LIP if interventions ineffective or patient reports new pain 7. Monitor vital signs including pulse ox, end-tidal CO2 based on pain intervention 8. Reassess pain per policy 9. Teach patient or legal sales account representative interventions for comforting Outcome: Progressing Note: Evaluation of progress towards goal: Pt able to report pain according to 0/10 pain scale. Medicating patient for pain per orders. Problem: Safety Goal: Patient will be injury free during hospitalization Description: INTERVENTIONS: 1. Assess patient's risk for falls and implement fall prevention plan of care per policy 2. Provide and maintain a safe environment 3. Proper use of double Identifiers 4. Medication administration using the 5 rights 5. Hand hygiene 6. Specimens are labeled at the bedside 7. Instruct patient/ patient sales account representative about use of safety devices 8. Include patient/ patient sales account representative in decisions related to safety Outcome: Progressing Note: Evaluation of progress towards goal: Safety measures initiated/maintained. Pt remains safe from harm/injury/falls Problem: Infection Goal: Absence of infection during hospitalization Description: INTERVENTIONS 1. Assess and monitor for signs and symptoms of infection. 2. Monitor lab/diagnostic results. 3. Monitor all insertion sites i.e., indwelling lines, tubes and drains. 4. Monitor endotracheal (as able) and nasal secretions for changes in amount and color. 5. Administer medications as ordered. 6. Instruct and encourage patient and family to use good hand hygiene technique. 7. Identify and instruct patient/patient sales account representative in use of appropriate isolation precautions for identified infection/symptoms. 8. Provide and discuss with patient/patient sales account representative on educational MDRO sheet. 9. Encourage and monitor nutritional status daily and consult senior linux systems administrator if indicated. 10. Implement neutropenic guidelines as needed. Outcome: Progressing Note: Evaluation of progress towards goal: Pt afebrile at this time, continue to monitor for signs infection Problem: Knowledge Deficit Goal: Patient/patient sales account representative demonstrates understanding of disease process, treatment plan, medications, and discharge instructions Description: INTERVENTIONS 1. Complete learning assessment and assess knowledge base 2. Provide teaching at level of understanding 3. Provide teaching via preferred learning method(s) Outcome: Progressing Note: Evaluation of progress towards goal: Evaluate, educate, reinforce learning needs and gaps t/o shift. Problem: Discharge Planning Goal: Discharge to post-acute care, other facility, or home with appropriate resources Description: Patient's goal is: INTERVENTIONS 1. Conduct assessment to determine patient/family and health care team treatment goals, and need for post-acute services based on payer coverage, community resources, and patient preferences, and barriers to discharge 2. Coordinate with Social work, Care Navigation, and Utilization Review to arrange appropriate level of services according to patient's needs based on patient preference and payer coverage in collaboration with the physician and health care team 3. Address psychosocial, clinical, and financial barriers to discharge as identified in assessment in conjunction with the patient/family and health care team 4. Consult appropriate ancillary services (i.e.. PT/OT/ST, etc) as needed 5. Communicate with and update the patient/family, physician, and health care team regarding progress on the discharge plan 6. Identify discharge learning needs (meds, wound care, etc). 7. Arrange for needed discharge transportation as appropriate Outcome: Progressing Note: Evaluation of progress towards goal: Continue to monitor t/o shift to assess for discharge needs. Problem: Readmission Risk Reduction Goal: Readmission Risk Assessment Description: Utilize readmission risk score in the development of discharge plan INTERVENTIONS: 1. Discuss patient's risk of readmission at multidisciplinary discharge transition rounds. 2. Comprehensive assessment of patient's risk of readmission (functional, psychosocial, cognitive). 3. Collaborate with patient / caregiver to identify needs. 4. Handoff to next level of care provider (respiratory care technician, PCP, home care). 5. Complete follow up phone call within 72 hours. Outcome: Progressing Note: Evaluation of progress towards goal: n/a Goal: Discharge Medication Plan Description: Develop a plan to ensure that medications are obtained at the time of discharge INTERVENTIONS: 1. Utilize outpatient pharmacy to deliver medications to patient prior to discharge, where available. 2. Ensure that prescriptions are sent to the patient's pharmacy of choice prior to patient leaving the hospital. If possible, confirm authorizations and co-pays and communicate to patient. 3. During discharge follow-up phone call, confirm that prescriptions have been filled. Outcome: Progressing Note: Evaluation of progress towards goal: n/a Goal: Follow-Up Appointments Description: Schedule patient-centric follow-up appointments prior to discharge INTERVENTIONS: 1. Identify recommended / appropriate timeframes for follow-up. 2. Discuss transportation needs and scheduling preferences with patient. 3. Verify that all follow-up appointments are scheduled prior to discharge. Outcome: Progressing Note: Evaluation of progress towards goal: n/a Goal: Discharge Medication Reconciliation Description: Review discharge medication reconciliation for accuracy INTERVENTIONS: 1. Include last dose date / time on the discharge medication list. 2. Utilize available resources to identify and address issues. 3. Consider use of a Discharge Time-Out or Discharge Final Check. 4. Refer to homecare, as appropriate, for home medication review. Outcome: Progressing Note: Evaluation of progress towards goal: n/a Goal: Discharge Instructions Description: Provide accurate and complete discharge instructions, taking into account health literacy of the patient INTERVENTIONS: 1. Assess patient's learning needs including health literacy. 2. Provide disease-specific education as appropriate. 3. Consider use of teach-back to verify patient / caregiver understanding. 4. Verify understanding of discharge instructions. 5. Consider use of a Discharge Time-Out or Discharge Final-Check. Outcome: Progressing Note: Evaluation of progress towards goal: n/a Problem: Inadequate Airway Clearance Goal: Patient will maintain patent airway Description: INTERVENTIONS 1. Assess and monitor breath sounds, cough and sputum (if present) 2. Monitor respiratory rate and oxygen saturation 3. Collaborate with respiratory therapy to administer medication, oxygen, and suitable airway clearance techniques as ordered 4. Position patient for maximum ventilatory efficiency; elevate head of bed at least 30 degrees if appropriate 5. Provide adequate fluid intake to liquify secretions if appropriate 6. Suction secretions as indicated to maintain patent airway 7. Instruct patient to turn, cough, and deep breathe; encourage incentive spirometer if indicated Outcome: Progressing Note: Evaluation of progress towards goal: Pt is able to maintain a patent airway and breath sounds are clear. Continue to monitor. Problem: Inadequate Breathing Pattern Goal: Patient will achieve/maintain normal respiratory rate/effort Description: Patient's goal is: INTERVENTIONS 1. Assess and monitor respiratory rate, effort, breathing pattern, and oxygenation 2. Monitor patient for restlessness, anxiety, air hunger 3. Assess physical activity tolerance 4. Assess tobacco history; ask, advise, and refer as appropriate 5. Collaborate with interdisciplinary team and initiate plans/interventions as needed Outcome: Progressing Note: Evaluation of progress towards goal: Pt is able to maintain a patent airway and breath sounds are clear. Continue to monitor. Goal: Patient will maintain effective ventilation Description: Patient's goal is: INTERVENTIONS 1. Assess and monitor vital signs, respiratory status (to include respiratory rate, depth, effort, and breath sounds), oxygen saturation, oral mucosa, tongue, pain, and labs (ABGs). 2. Collaborate with interdisciplinary team and initiate plans and interventions as needed 3. Oxygen therapy as indicated 4. Position patient for maximum ventilatory efficiency 5. Instruct patient to turn, cough, and deep breathe; encourage incentive spirometer if indicated 6. Plan activities to conserve energy 7. Encourage ambulation/activity per patient's tolerance 8. Collaborate with patient/RT to administer medications/treatments 9. Monitor lab/diagnostic results Outcome: Progressing Note: Evaluation of progress towards goal: Pt is able to maintain a patent airway and breath sounds are clear. Continue to monitor. Problem: Anxiety Goal: Anxiety is at manageable level Description: Patient's goal is: INTERVENTIONS 1. Assess and monitor patient's anxiety level 2. Monitor for signs and symptoms of anxiety both physical and emotional (heart palpitations, chest pain, shortness of breath, headaches, nausea, feeling jumpy, restlessness, irritable, apprehensive) 3. Reorient/orient patient to unit/surroundings 4. Explain treatment plan 5. Explain tests/procedures prior to initiation 6. Encourage participation in care 7. Encourage verbalization of concerns/fears 8. Assess coping mechanisms 9. Assist in developing anxiety-reducing skills 10. Administer complimentary therapies 11. Manage patient's environment 12. Limit or eliminate stimulants such as caffeine and nicotine 13. Collaborate with ancillary departments 14. Include patient/patient sales account representative in decisions related to anxiety Outcome: Progressing Note: Evaluation of progress towards goal: Education and reassurance provided as needed to maintain a decreased level of fear/anxiety as needed. Problem: Activity Intolerance/Impaired Mobility Goal: Mobility/activity is maintained at optimum level for patient Description: Patient's goal is: INTERVENTIONS 1. Assess and monitor patient barriers to mobility and need for assistive/adaptive devices 2. Assess patient's emotional response to limitations 3. Collaborate with interdisciplinary teams and initiate plans and interventions as ordered 4. Encourage independent activity per tolerance 5. Maintain proper body alignment 6. Perform active/passive ROM as tolerated/ordered 7. Coordinate activities to conserve energy 8. Reposition patient 9. Ensure adequate rest/sleep time Outcome: Progressing Note: Evaluation of progress towards goal: Improved physical mobility. Assistive devices and safe patient handling equipment used according to pt situation. Problem: Inadequate Coping Goal: Demonstrates and verbalizes ability to cope effectively Description: Patient's goal is: INTERVENTIONS 1. Patient is able to verbalize feelings related to emotional state 2. Encourage verbalization of feelings, perceptions, fears, stressors, loss of loved ones 3. Encourage verbalization of problems out of their control 4. Encourage participation in care and self management 5. Inform patient of all treatment/care prior to providing care 6. Collaborate with pastoral/spiritual care, social security specialist, mental health counselor as needed. 7. Instruct patient on diversional activities such as physical activity, distraction, and deep breathing exercises to assist with coping 8. Involve patient's sales account representative in care Outcome: Progressing Note: Evaluation of progress towards goal: Pt able to verbalize feeling, and allowed time to verbalize feelings. Allowed participation in care and self management. Pt calm, cooperative, active and receptive to treatments. Continue to monitor. Problem: Moderate - High Risk Fall Score Description: Patel Fall Score of =/> 25 or indicated by [facility] Assessment Goal: Patient should be free from fall Description: Interventions: 1. Wheelwright to environment 2. Hourly rounds addressing the 4 P's (Pain, Positioning, Possessions, Potty) 3. Clear area of hazards (spills, clutter, electrical cords, unnecessary equipment) 4. Place equipment (bed & TV controls, call light, phone, urinal) within reach 5. Encourage patient to wear glasses and hearing aides as appropriate 6. Maintain bed in lowest position 7. Lock wheels on bed/wheelchair 8. Provide adequate lighting, including night light 9. Assess need for additional bedding, food/fluids, pain med's prior to sleep/routinely 10. Provide gripper slippers or personal non-skid footwear 11. Teach patient and patient sales account representative to maintain environment for safety and engage in all aspects of fall prevention program 12. Remind patient to call for help before getting out of bed 13. Initiate bed/chair/exit alarms supportive devices as appropriate, (chair wedge, no-skid floor mat, raised edge mattress, hip protectors) 14. Locate patient bed assignment for optimal visualization 15. Evaluate and identify Safe Patient Handling Equipment needs 16. Provide supervision when out of bed or chair 17. Utilize gait belt as needed to assist with ambulation 18. Place adaptive equipment (cane, walker) within reach 19. Request patient sales account representative bring adaptive equipment/mobility aids from home or obtain and provide as needed 20. Consult pharmacy regarding effects of med's affecting mobility, cognition, and alternatives 21. Obtain physician order for PT if risk factors associated with mobility are present 22. Obtain physician order for OT as appropriate 23. Utilize diversional activities 24. Educate patient and patient sales account representative how to maintain a safe environment during visitation times (notify nurse prior to leaving bedside) 25. Consider appropriateness of medical or non-back office medical assistant 26. Set up voiding schedule as appropriate (every 2 hours) Outcome: Progressing Note: Evaluation of progress towards goal: Pt remains free from falls or accidental injury during stay. Fall prevention measures in place. Hourly rounding per RN and maintained. Problem: Potential for Compromised Skin Integrity Goal: Skin integrity is maintained or improved Description: Patient's goal is: INTERVENTIONS 1. Perform initial skin assessment on admission and as needed 2. Turn patient every 2 hours and PRN 3. Relieve pressure to bony prominences 4. Avoid shearing 5. Keep skin clean and dry 6. Alternate a full bath with partial baths for elderly 7. Apply lotion/moisturizer on skin 8. Monitor patient's hygiene practices 9. Float heels 10. Collaborate with interdisciplinary team and initiate plans and interventions as needed Outcome: Progressing Note: Evaluation of progress towards goal: Maintain skin integrity and tissue integrity Goal: Patient's nutritional intake is adequate Description: Patient's goal is: INTERVENTIONS 1. Assess and monitor food intake and supplements, patient food preferences, nausea, vomiting, labs, oral cavity (gums, teeth, tongue, mucosa), proper denture fit, and cultural beliefs 2. Monitor for signs of hypoglycemia and hyperglycemia 3. Collaborate with interdisciplinary team and initiate plan and interventions as ordered 4. Monitor patient's weight 5. Assist patient with meals/food selection 6. Assist patient with eating 7. Allow adequate time for meals 8. Provide pleasant environment during mealtime 9. Increase social contact during mealtimes 10. Plan activities to conserve energy 11. Encourage/perform oral hygiene as appropriate 12. Encourage patient to take dietary supplement as ordered 13. Collaborate with clinical senior linux systems administrator 14. Include patient/ patient's sales account representative in decisions related to nutrition Outcome: Progressing Note: Evaluation of progress towards goal: Patient understands the importance of proper nutrition to aid in healing. Problem: Urinary Incontinence Goal: Perineal skin integrity is maintained or improved Description: INTERVENTIONS 1. Assess genitourinary system, perineal skin, labs (urinalysis), and history of incontinence to include past management, aggravating, and alleviating factors 2. Keep skin clean and dry 3. Apply skin protectant 4. Develop skin care regimen 5. Provide privacy when changing patients incontinence device to maintain their dignity 6. Consider placing an indwelling catheter 7. Collaborate with interdisciplinary team and initiate plans and interventions as needed Outcome: Progressing Note: Evaluation of progress towards goal: Perineal skin kept clean and dry, privacy provided as needed, skin protectant applied as needed, labs monitored. [facility] 05-14-2025 History and physical note Images from the original note were not included. [facility] INTERNAL MEDICINE [facility] [address] [facility] [id number] Hospital Medicine History & Physical Patient: Cuca Godowin Date of : 1945 Room: PCP: KAIDEN Werner Admission date: 05/13/2025 10:27 AM Encounter date: 05/14/25 Hospital Day: 2 SUBJECTIVE Cuca Goodwin is a 79 y.o. female who presents with to ER for 4th day in a row. She has been evaluated for right hip pain 3 days in a row without clear etiology other than musculoskeletal pain. She refused admission yesterday. Pain is in the right hip and is worse with any movement. No neurological symptoms. CT of lumbar spine yesterday showed chronic L1 fracture with minimal worsening of retropulsion. EMS called to the home for the 3rd time today for right hip pain. Today the patient is significantly different today. She is weak and drowsy, reports shortness of breath and was requiring supplemental oxygen. She denies chest pain. No fever. Patient is dressed in the same clothing and wearing a soiled brief. She lives with her daughter and grandson but they don't currently have transportation. She has history of HTN, HLD, previous stroke, CKD, DM, chronic back pain, s/p TAVR, CAD post PCI 2022, severe post TAVR, NHP post shunt, recently admitted for staph bacteremia in February. Hypoxia is new today. Patient was not appear that she has been cared for home. She lives with her daughter but she arrived wearing the same clothes as yesterday and in a soiled brief. It does not appear that she was receiving any care at home. Because of the patient's tachycardia, lethargy, initial soft blood pressure and recent admission for bacteremia without a clear source, I work the patient up for sepsis and started her on empiric antibiotics. Allergies: Patient has no known allergies. Prior to Admission medications Medication Sig Start Date End Date Taking? Authorizing Provider acetaminophen (TYLENOL) 500 mg tablet Take 2 tablets (1,000 mg total) by mouth every 6 (six) hours as needed for pain. Yes Not In System Ref Prov cyanocobalamin 1000 MCG tablet Take 1 tablet (1,000 mcg total) by mouth in the morning. 02/25/25 Yes KAIDEN Jain gabapentin (NEURONTIN) 300 mg capsule Take 2 capsules (600 mg total) by mouth nightly. Yes Not In System Ref Prov gabapentin (NEURONTIN) 300 mg capsule Take 1 capsule (300 mg total) by mouth in the morning. 02/24/25 Yes KAIDEN Jain insulin lispro (HumaLOG) 100 unit/mL insulin pen Inject 2-10 Units under the skin 4 (four) times a day with meals and nightly. 151-200 mg/dL, give 2 units. 201-250 mg/dL, give 4 units. 251-300 mg/dL, give 6 units. 301-350 mg/dL, give 8 units 351-400 mg/dL, give 10 units 02/24/25 Yes KAIDEN Jain letrozole (FEMARA) 2.5 mg chemo tablet Take 1 tablet by mouth daily 01/25/25 01/20/26 Yes Casimiro Muñoz MD lidocaine (SALONPAS) 4 % Place 1 patch on the skin daily. 01/11/25 Yes Mely Larios MD mirtazapine (REMERON) 7.5 mg tablet Take 1 tablet (7.5 mg total) by mouth nightly. 01/22/25 Yes KAIDEN Werner nystatin (MYCOSTATIN) powder Apply 1 Application topically in the morning and 1 Application at noon and 1 Application in the evening and 1 Application before bedtime. 09/06/24 Yes KAIDEN Werner sertraline (ZOLOFT) 100 mg tablet Take 1 tablet (100 mg total) by mouth in the morning. 01/28/25 Yes Not In System Ref Prov traMADoL (ULTRAM) 50 mg tablet Take 1 tablet (50 mg total) by mouth every 6 (six) hours as needed for pain for up to 3 days. 05/12/25 05/15/25 Yes KAIDEN Phillips traZODone (DESYREL) 100 mg tablet TAKE 1 TABLET BY MOUTH EVERY DAY AT NIGHT Patient taking differently: Take 1 tablet (100 mg total) by mouth nightly. TAKE 1 TABLET BY MOUTH EVERY DAY AT NIGHT 11/28/24 Yes KAIDEN Werner insulin aspart U-100 (NovoLOG) 100 unit/mL (3 mL) insulin pen Not In System Ref Prov insulin detemir U-100 (LEVEMIR) 100 unit/mL (3 mL) insulin pen Inject 15 Units under the skin nightly. Patient not taking: Reported on 05/13/2025 08/24/24 KAIDEN Hopkins Code Status: Full Code Past Medical History: Patient has a past medical history of Anemia, Arthritis, Asthma, Cataract, Dental disease, Depression, Diabetes mellitus [place] Diabetes mellitus type 2, controlled ([facility]), Encephalitis, Foot fracture, left, GERD (gastroesophageal reflux disease), Heart murmur, HLD (hyperlipidemia), Hypertension, Incontinence, Injury of back, Insulin dependent diabetes mellitus, Kidney failure, Lumbar spondylolysis, Murmur, Obesity, CHELSEA (obstructive sleep apnea), Peptic ulceration, Peripheral vascular disease, Shortness of breath, Stroke ([facility]) (02/27/2024), TIA (transient ischemic attack), Upper respiratory [...] Negative for tinnitus and trouble swallowing. Respiratory: Positive for shortness of breath (Improving). Negative for cough, chest tightness and wheezing. Cardiovascular: Negative for chest pain, palpitations and leg swelling. Gastrointestinal: Negative for abdominal pain, diarrhea, nausea and vomiting. Genitourinary: Negative for difficulty urinating. Musculoskeletal: Positive for arthralgias and gait problem. Skin: Negative for rash. Neurological: Negative for dizziness, syncope, speech difficulty, weakness, light-headedness, numbness and headaches. Psychiatric/Behavioral: Negative for sleep disturbance. OBJECTIVE BP 136/70 Pulse 101 Temp 36.5 C (97.7 F) (Oral) Resp 20 Ht 165.1 cm (5' 5 ) Wt 83.4 kg (183 lb 13.8 oz) LMP (LMP Unknown) SpO2 (!) 89% BMI 30.60 kg/m Temp: [36.4 C (97.5 F)-37 C (98.6 F)] 36.5 C (97.7 F) Pulse: [73-108] 101 Resp: [20-28] 20 BP: (108-136)/(58-95) 136/70 SpO2: [75 %-100 %] 89 % O2 Device: None (Room air) O2 Flow Rate (L/min): [2 L/min-4 L/min] 2 L/min Intake/Output Summary (Last 24 hours) at 05/14/2025 1337 Last data filed at 05/14/2025 1333 Gross per 24 hour Intake 3227.48 ml Output -- Net 3227.48 ml Physical Exam Physical Exam Vitals and nursing note reviewed. Constitutional: General: She is not in acute distress. Appearance: She is ill-appearing. HENT: Head: Normocephalic and atraumatic. Right Ear: External ear normal. Left Ear: External ear normal. Nose: Nose normal. Mouth/Throat: Mouth: Mucous membranes are dry. Pharynx: Oropharynx is clear. Eyes: Pupils: Pupils are equal, round, and reactive to light. Neck: Vascular: No carotid bruit or JVD. Cardiovascular: Rate and Rhythm: Regular rhythm. Tachycardia present. Pulses: Normal pulses. Comments: Sinus tachycardia noted on registered art therapist heart rate of 104 Pulmonary: Effort: Pulmonary effort is normal. Breath sounds: Normal breath sounds. No wheezing or rales. Comments: Room air Abdominal: General: Bowel sounds are normal. There is no distension. Palpations: Abdomen is soft. Tenderness: There is no abdominal tenderness. There is no right CVA tenderness or left CVA tenderness. Musculoskeletal: General: Tenderness (Right hip) present. Right lower leg: Edema (1+) present. Left lower leg: Edema (1+) present. Lymphadenopathy: Cervical: No cervical adenopathy. Skin: General: Skin is warm and dry. Capillary Refill: Capillary refill takes less than 2 seconds. Neurological: Mental Status: She is alert and oriented to person, place, and time. Motor: Weakness (Lower extremity) present. Gait: Gait abnormal. Psychiatric: Mood and Affect: Mood normal. Behavior: Behavior normal. Thought Content: Thought content normal. Judgment: Judgment normal. Medications Scheduled: doxycycline, 100 mg, oral, BID ferrous sulfate, 325 mg, oral, Daily with breakfast furosemide, 20 mg, oral, Daily gabapentin, 300 mg, oral, Daily gabapentin, 600 mg, oral, Nightly heparin (porcine), 5,000 Units, subcutaneous, Q8H DALTON insulin lispro, 2-10 Units, subcutaneous, TID with meals insulin lispro, 2-8 Units, subcutaneous, Nightly magnesium oxide, 400 mg, oral, Daily mirtazapine, 7.5 mg, oral, Nightly sertraline, 100 mg, oral, Daily traZODone, 100 mg, oral, Nightly Infusions: dextrose 5 % in water, 100 mL/hr sodium chloride 0.9 %, 20 mL/hr As Needed: acetaminophen calcium gluconate calcium gluconate calcium gluconate dextrose dextrose 5 % in water dextrose 50 % in water (D50W) glucagon (human recombinant) magnesium sulfate magnesium sulfate ondansetron potassium chloride OR potassium chloride OR potassium chloride IV (Adult) sennosides-docusate sodium sodium phosphate IV OR [DISCONTINUED] sodium phosphate IV - central line OR sod phos di, mono-K phos mono sodium chloride sodium chloride sodium chloride 0.9 % traMADoL Allergies: Patient has no known allergies. Labs Recent Results (from the past 24 hours) Bedside Glucose *Place/Obtain serum glucose if >500 per glucometer. Collection Time: 05/13/25 2:39 PM Result Value Ref Range Bedside Glucose (POC) 384 (H) 65 - 99 mg/dL Extra Tubes Collection Time: 05/13/25 7:54 PM Narrative The following orders were created for panel order Extra Tubes. Procedure Abnormality Status --------- ------ [facility] TOP[[id number]] Final result Please view results for these tests on the individual orders. PST TOP Collection Time: 05/13/25 7:54 PM Result Value Ref Range Extra Tube Auto Resulted APTT Collection Time: 05/13/25 7:55 PM Result Value Ref Range APTT 30 26 - 37 sec Hemoglobin Collection Time: 05/13/25 7:55 PM Result Value Ref Range Hemoglobin 11.5 (L) 11.7 - 15.5 g/dL Platelet count Collection Time: 05/13/25 7:55 PM Result Value Ref Range Platelet Count 214 150 - 450 X10E9/L MPV 8.3 7 - 12 fL Bedside Glucose *Place/Obtain serum glucose if >500 per glucometer. Collection Time: 05/13/25 9:31 PM Result Value Ref Range Bedside Glucose (POC) 256 (H) 65 - 99 mg/dL CBC auto differential Collection Time: 05/14/25 4:13 AM Result Value Ref Range WBC 7.6 4 - 11 x10E9/L RBC Count 3.65 (L) 3.8 - 5.2 X10E12/L Hemoglobin 10.3 (L) 11.7 - 15.5 g/dL Hematocrit 30.6 (L) 35 - 47 % MCV 84 80 - 100 fL MCH 28.1 27 - 34 pg MCHC 33.5 32 - 36 g/dL RDW 15.5 (H) 11.5 - 15 % Platelet Count 166 150 - 450 X10E9/L MPV 8.7 7 - 12 fL Neutrophils % 55.9 % Lymphocytes % 23.9 % Monocytes % 12.9 % Eosinophils % 6.6 % Basophils % 0.7 % Neutrophils Absolute (A) 4.2 1.5 - 6.6 10*3/uL Lymphocytes Absolute 1.8 1.0 - 3.5 10*3/uL Monocytes Absolute 1.0 (H) 0.0 - 0.9 10*3/uL Eosinophils Absolute 0.5 (H) 0.0 - 0.4 10*3/uL Basophils Absolute 0.1 0.0 - 0.2 10*3/uL Differential Type AUTOMATED DIFFERENTIAL Comprehensive metabolic panel Collection Time: 05/14/25 4:14 AM Result Value Ref Range SODIUM 139 134 - 146 mmol/L POTASSIUM 4.4 3.5 - 5.0 mmol/L CHLORIDE 108 98 - 109 mmol/L CARBON DIOXIDE 22 22 - 32 mmol/L ANION GAP 9 5 - 15 mmol/L BLOOD UREA NITROGEN 27 5 - 27 mg/dL CREATININE 1.30 (H) 0.40 - 1.00 mg/dL GLUCOSE 148 (H) 65 - 99 mg/dL CALCIUM 9.0 8.5 - 10.5 mg/dL TOTAL PROTEIN 6.6 6.0 - 8.0 g/dL ALBUMIN 2.9 (L) 3.2 - 5.3 g/dL ALKALINE PHOSPHATASE 128 39 - 130 U/L AST 23 <=41 U/L ALT 14 <=31 U/L BILIRUBIN,TOTAL 0.6 0.3 - 1.2 mg/dL EGFR Non-Race Dependent 42 (L) >=60 ml/min/1.73sq.m Magnesium Collection Time: 05/14/25 4:14 AM Result Value Ref Range MAGNESIUM 1.6 (L) 1.8 - 2.6 mg/dL Bedside Glucose *Place/Obtain serum glucose if >500 per glucometer. Collection Time: 05/14/25 11:26 AM Result Value Ref Range Bedside Glucose (POC) 223 (H) 65 - 99 mg/dL Radiology CT hip right without contrast Result Date: [...] 1. No acute change. Finalized by Berry Chavez MD on 05/13/2025 11:[address] lumbar [...] valve replacement. The distal portion of a SENIOR TAX ANALYST shunt is seen within the abdomen. Again [...] ovarian. There is partial visualization of a SENIOR TAX ANALYST shunt and changes of aortic valve replacement. All CT scans at this facility use dose modulation, iterative reconstruction, and/or weight based dosing when appropriate to reduce radiation dose to as low as reasonably achievable. Finalized by Laci Lima MD on 05/12/2025 12:37 PM X-ray spine lumbar 2 or 3 views Result Date: 05/11/2025 Narrative: XR SPINE LUMBAR 2 OR 3 VWS [...] Suárez MD on 05/11/2025 2:28 AM I, Giovanny Zheng MD have personally reviewed the image(s) and agree with and/or edited the report Finalized by Giovanny Zehng MD on 05/11/2025 2:32 AM X-ray chest 1 view Result Date: 04/28/2025 Narrative: XR CHEST 1 VW Clinical Information: ams Comparison: 03/16/2025. IMPRESSION: * Tubing overlying the right chest. No acute cardiopulmonary disease. Stable heart size. Old rib deformities. Prosthetic cardiac valve. Finalized by Joie Ellsworth MD on 04/28/2025 12:[address] brain without contrast Result Date: 04/28/2025 Narrative: CLINICAL HISTORY: Transient alteration in awareness. TECHNIQUE: Spiral CT of the brain was performed without contrast material. All CT scans at this facility use dose modulation, iterative reconstruction, and/or weight based dosing when appropriate to reduce radiation dose to as low as reasonably achievable. COMPARISONS: 02/12/2025. FINDINGS: Right frontal ventriculostomy unchanged with tip at midline near foramina of Castillo similar to prior exam. Some surrounding encephalomalacia about the ventriculostomy is stable. Encephalomalacia mesial left occipital lobe is unchanged likely reflecting remote infarct. The brain otherwise appears within normal limits in morphology and attenuation for the patient's stated age of 79 years. There is no intracranial mass nor mass effect. Ventricular system appears within normal limits. Basal cisterns and fourth ventricle appear patent. No parenchymal nor extra-axial hemorrhage is identified. Calvarium appears intact. IMPRESSION: No acute intracranial finding. No significant interval change. Finalized by Radha Sorenson MD on 04/28/2025 11:34 AM HOSPITAL PROBLEM LIST Principal Problem: Acute respiratory failure with hypoxia ([facility] Active Problems: 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 mellitus ([facility]) Mixed diabetic hyperlipidemia associated with type 2 diabetes mellitus ([facility]) Obstructive sleep apnea syndrome Essential (primary) hypertension Acute on chronic diastolic congestive heart failure ([facility]) Stage 3b chronic kidney disease ([facility]) Type 2 diabetes mellitus with diabetic chronic kidney disease ([facility] Iron deficiency anemia Hypomagnesemia Closed fracture of right hip ([facility] Nondisplaced fracture of lesser trochanter of right femur, initial encounter for closed fracture ([facility]) ASSESSMENT & PLAN Acute respiratory failure with hypoxia: Resolved. Patient now on room air. Diabetic neuropathy: Continue home gabapentin. Anemia: Hemoglobin at baseline. Continue to monitor daily. Dm type 2: Monitor blood glucose a.c. and HS cover with sliding scale insulin. Sleep apnea: Encouraged CPAP use. Hypertension: Normotensive. Continue home Lasix. CKD 3: Creatinine at baseline. Continue to monitor daily. Hypomagnesemia: Supplement. Monitor electrolytes daily replace per protocol. Right hip fracture: Orthopedic surgery consult. Nonsurgical. Weightbearing as tolerated. Okay for physical therapy to evaluate and treat. Initially treating for sepsis with Zosyn and vancomycin. Patient was pulled out 3 IVs in 1 midline. After reviewing labs and vital signs, will discontinue IV antibiotics and change to oral doxycycline. Continue to monitor off IV antibiotics. Urine culture and blood cultures pending. Admission orders placed and home medications reconciled. DVT prophylaxis: EPC's and heparin subQ. GI prophylaxis. Protonix PT/OT to evaluate and treat. DC planning: Discharge home versus alf facility in 1-2 days. Sepsis suspected, yes-without organ failure as evidenced by altered mental status. Presumed source; sepsis of unknown origin. Testing obtained; blood cultures x2, urine culture, and lactate. Fluid resuscitation; less than 30 ml/kg IVF bolus due to high risk of being harmful due to not meeting septic shock criteria, instead no ml IVF bolus. Antibiotics; Zosyn and vancomycin. Vasopressors; not required. KAIDEN Hopkins, 05/14/2025 1:37 PM [facility] Internal Medicine 7AM-7PM & 7PM-7AM: EpicChat or page through On-Call [employer]. This note is dictated with the use of M*Modal. Please note that this dictation was completed with computer voice recognition software. Quite often unanticipated grammatical, syntax, homophones, and other interpretive errors are inadvertently transcribed by the computer software. Please disregard these errors. Please excuse any errors that have escaped final proofreading. KAIDEN Hopkins 05/14/25 1314 Physician Attestation I, Felix Hallman MD, personally performed a face to face diagnostic evaluation on this patient. I have reviewed the note authored by the advance practice provider including history, review of systems,physical examination,medical decision making and agree with the assessment and plan as written. I have seen and evaluated the patient, I have repeated the hoffmann portions of the physical exam and concur with the PROMISE findings. I have reviewed all laboratory findings and imaging reports/films. I agree with the plan as noted. Patient with diastolic CHF, diabetes mellitus, is being admitted with acute hypoxemic respiratory failure due to acute diastolic CHF and right nondisplaced lesser trochanter femur fracture. On Lasix for diastolic CHF. Patient may be weight-bearing as tolerated per Orthopedic surgery recommendations. EKG shows sinus tachycardia heart rate of 115 with a QTC of 475. Trop 35-26 TSH 0.38, free T4 with a normal limit 1.05 on 08/23/2024. [facility] 05-14-2025 History and physical note Images from the original note were not included. [facility] [address] [facility] [id number] [facility] Medicine History & Physical Patient: Cuca Goodwin Date of : 1945 Room: PCP: KAIDEN Werner Admission date: 05/13/2025 10:27 AM Encounter date: 05/14/25 Hospital Day: 2 SUBJECTIVE Cuca Goodwin is a 79 y.o. female who presents with to ER for 4th day in a row. She has been evaluated for right hip pain 3 days in a row without clear etiology other than musculoskeletal pain. She refused admission yesterday. Pain is in the right hip and is worse with any movement. No neurological symptoms. CT of lumbar spine yesterday showed chronic L1 fracture with minimal worsening of retropulsion. EMS called to the home for the 3rd time today for right hip pain. Today the patient is significantly different today. She is weak and drowsy, reports shortness of breath and was requiring supplemental oxygen. She denies chest pain. No fever. Patient is dressed in the same clothing and wearing a soiled brief. She lives with her daughter and grandson but they don't currently have transportation. She has history of HTN, HLD, previous stroke, CKD, DM, chronic back pain, s/p TAVR, CAD post PCI 2022, severe post TAVR, NHP post shunt, recently admitted for staph bacteremia in February. Hypoxia is new today. Patient was not appear that she has been cared for home. She lives with her daughter but she arrived wearing the same clothes as yesterday and in a soiled brief. It does not appear that she was receiving any care at home. Because of the patient's tachycardia, lethargy, initial soft blood pressure and recent admission for bacteremia without a clear source, I work the patient up for sepsis and started her on empiric antibiotics. Allergies: Patient has no known allergies. Prior to Admission medications Medication Sig Start Date End Date Taking? Authorizing Provider acetaminophen (TYLENOL) 500 mg tablet Take 2 tablets (1,000 mg total) by mouth every 6 (six) hours as needed for pain. Yes Not In System Ref Prov cyanocobalamin 1000 MCG tablet Take 1 tablet (1,000 mcg total) by mouth in the morning. 02/25/25 Yes KAIDEN Jain gabapentin (NEURONTIN) 300 mg capsule Take 2 capsules (600 mg total) by mouth nightly. Yes Not In System Ref Prov gabapentin (NEURONTIN) 300 mg capsule Take 1 capsule (300 mg total) by mouth in the morning. 02/24/25 Yes KAIDEN Jain insulin lispro (HumaLOG) 100 unit/mL insulin pen Inject 2-10 Units under the skin 4 (four) times a day with meals and nightly. 151-200 mg/dL, give 2 units. 201-250 mg/dL, give 4 units. 251-300 mg/dL, give 6 units. 301-350 mg/dL, give 8 units 351-400 mg/dL, give 10 units 02/24/25 Yes KAIDEN Jain letrozole (FEMARA) 2.5 mg chemo tablet Take 1 tablet by mouth daily 01/25/25 01/20/26 Yes Casimiro Muñoz MD lidocaine (SALONPAS) 4 % Place 1 patch on the skin daily. 01/11/25 Yes Mely Larios MD mirtazapine (REMERON) 7.5 mg tablet Take 1 tablet (7.5 mg total) by mouth nightly. 01/22/25 Yes KAIDEN Werner nystatin (MYCOSTATIN) powder Apply 1 Application topically in the morning and 1 Application at noon and 1 Application in the evening and 1 Application before bedtime. 09/06/24 Yes KAIDEN Werner sertraline (ZOLOFT) 100 mg tablet Take 1 tablet (100 mg total) by mouth in the morning. 01/28/25 Yes Not In System Ref Prov traMADoL (ULTRAM) 50 mg tablet Take 1 tablet (50 mg total) by mouth every 6 (six) hours as needed for pain for up to 3 days. 05/12/25 05/15/25 Yes KAIDEN Phillips traZODone (DESYREL) 100 mg tablet TAKE 1 TABLET BY MOUTH EVERY DAY AT NIGHT Patient taking differently: Take 1 tablet (100 mg total) by mouth nightly. TAKE 1 TABLET BY MOUTH EVERY DAY AT NIGHT 11/28/24 Yes KAIDEN Werner insulin aspart U-100 (NovoLOG) 100 unit/mL (3 mL) insulin pen Not In System Ref Prov insulin detemir U-100 (LEVEMIR) 100 unit/mL (3 mL) insulin pen Inject 15 Units under the skin nightly. Patient not taking: Reported on 05/13/2025 08/24/24 Vj Gray APRN-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 Code Status: Full Code Past Medical History: Patient has a past medical history of Anemia, Arthritis, Asthma, Cataract, Dental disease, Depression, Diabetes mellitus [place] [place] Diabetes mellitus type 2, controlled ([facility] [place]), Encephalitis, Foot fracture, left, GERD (gastroesophageal reflux disease), Heart murmur, HLD (hyperlipidemia), Hypertension, Incontinence, Injury of back, Insulin dependent diabetes mellitus, Kidney failure, Lumbar spondylolysis, Murmur, Obesity, CHELSEA (obstructive sleep apnea), Peptic ulceration, Peripheral vascular disease, Shortness of breath, Stroke ([facility] [place] (02/27/2024), TIA (transient ischemic attack), Upper respiratory [...] Negative for tinnitus and trouble swallowing. Respiratory: Positive for shortness of breath (Improving). Negative for cough, chest tightness and wheezing. Cardiovascular: Negative for chest pain, palpitations and leg swelling. Gastrointestinal: Negative for abdominal pain, diarrhea, nausea and vomiting. Genitourinary: Negative for difficulty urinating. Musculoskeletal: Positive for arthralgias and gait problem. Skin: Negative for rash. Neurological: Negative for dizziness, syncope, speech difficulty, weakness, light-headedness, numbness and headaches. Psychiatric/Behavioral: Negative for sleep disturbance. OBJECTIVE BP 136/70 Pulse 101 Temp 36.5 C (97.7 F) (Oral) Resp 20 Ht 165.1 cm (5' 5 ) Wt 83.4 kg (183 lb 13.8 oz) LMP (LMP Unknown) SpO2 (!) 89% BMI 30.60 kg/m Temp: [36.4 C (97.5 F)-37 C (98.6 F)] 36.5 C (97.7 F) Pulse: [73-108] 101 Resp: [20-28] 20 BP: (108-136)/(58-95) 136/70 SpO2: [75 %-100 %] 89 % O2 Device: None (Room air) O2 Flow Rate (L/min): [2 L/min-4 L/min] 2 L/min Intake/Output Summary (Last 24 hours) at 05/14/2025 1337 Last data filed at 05/14/2025 1333 Gross per 24 hour Intake 3227.48 ml Output -- Net 3227.48 ml Physical Exam Physical Exam Vitals and nursing note reviewed. Constitutional: General: She is not in acute distress. Appearance: She is ill-appearing. HENT: Head: Normocephalic and atraumatic. Right Ear: External ear normal. Left Ear: External ear normal. Nose: Nose normal. Mouth/Throat: Mouth: Mucous membranes are dry. Pharynx: Oropharynx is clear. Eyes: Pupils: Pupils are equal, round, and reactive to light. Neck: Vascular: No carotid bruit or JVD. Cardiovascular: Rate and Rhythm: Regular rhythm. Tachycardia present. Pulses: Normal pulses. Comments: Sinus tachycardia noted on registered art therapist heart rate of 104 Pulmonary: Effort: Pulmonary effort is normal. Breath sounds: Normal breath sounds. No wheezing or rales. Comments: Room air Abdominal: General: Bowel sounds are normal. There is no distension. Palpations: Abdomen is soft. Tenderness: There is no abdominal tenderness. There is no right CVA tenderness or left CVA tenderness. Musculoskeletal: General: Tenderness (Right hip) present. Right lower leg: Edema (1+) present. Left lower leg: Edema (1+) present. Lymphadenopathy: Cervical: No cervical adenopathy. Skin: General: Skin is warm and dry. Capillary Refill: Capillary refill takes less than 2 seconds. Neurological: Mental Status: She is alert and oriented to person, place, and time. Motor: Weakness (Lower extremity) present. Gait: Gait abnormal. Psychiatric: Mood and Affect: Mood normal. Behavior: Behavior normal. Thought Content: Thought content normal. Judgment: Judgment normal. Medications Scheduled: doxycycline, 100 mg, oral, BID ferrous sulfate, 325 mg, oral, Daily with breakfast furosemide, 20 mg, oral, Daily gabapentin, 300 mg, oral, Daily gabapentin, 600 mg, oral, Nightly heparin (porcine), 5,000 Units, subcutaneous, Q8H DALTON insulin lispro, 2-10 Units, subcutaneous, TID with meals insulin lispro, 2-8 Units, subcutaneous, Nightly magnesium oxide, 400 mg, oral, Daily mirtazapine, 7.5 mg, oral, Nightly sertraline, 100 mg, oral, Daily traZODone, 100 mg, oral, Nightly Infusions: dextrose 5 % in water, 100 mL/hr sodium chloride 0.9 %, 20 mL/hr As Needed: acetaminophen calcium gluconate calcium gluconate calcium gluconate dextrose dextrose 5 % in water dextrose 50 % in water (D50W) glucagon (human recombinant) magnesium sulfate magnesium sulfate ondansetron potassium chloride OR potassium chloride OR potassium chloride IV (Adult) sennosides-docusate sodium sodium phosphate IV OR [DISCONTINUED] sodium phosphate IV - central line OR sod phos di, mono-K phos mono sodium chloride sodium chloride sodium chloride 0.9 % traMADoL Allergies: Patient has no known allergies. Labs Recent Results (from the past 24 hours) Bedside Glucose *Place/Obtain serum glucose if >500 per glucometer. Collection Time: 05/13/25 2:39 PM Result Value Ref Range Bedside Glucose (POC) 384 (H) 65 - 99 mg/dL Extra Tubes Collection Time: 05/13/25 7:54 PM Narrative The following orders were created for panel order Extra Tubes. Procedure Abnormality Status --------- ------ PST TOP[[id number]] Final result Please view results for these tests on the individual orders. PST TOP Collection Time: 05/13/25 7:54 PM Result Value Ref Range Extra Tube Auto Resulted APTT Collection Time: 05/13/25 7:55 PM Result Value Ref Range APTT 30 26 - 37 sec Hemoglobin Collection Time: 05/13/25 7:55 PM Result Value Ref Range Hemoglobin 11.5 (L) 11.7 - 15.5 g/dL Platelet count Collection Time: 05/13/25 7:55 PM Result Value Ref Range Platelet Count 214 150 - 450 X10E9/L MPV 8.3 7 - 12 fL Bedside Glucose *Place/Obtain serum glucose if >500 per glucometer. Collection Time: 05/13/25 9:31 PM Result Value Ref Range Bedside Glucose (POC) 256 (H) 65 - 99 mg/dL CBC auto differential Collection Time: 05/14/25 4:13 AM Result Value Ref Range WBC 7.6 4 - 11 x10E9/L RBC Count 3.65 (L) 3.8 - 5.2 X10E12/L Hemoglobin 10.3 (L) 11.7 - 15.5 g/dL Hematocrit 30.6 (L) 35 - 47 % MCV 84 80 - 100 fL MCH 28.1 27 - 34 pg MCHC 33.5 32 - 36 g/dL RDW 15.5 (H) 11.5 - 15 % Platelet Count 166 150 - 450 X10E9/L MPV 8.7 7 - 12 fL Neutrophils % 55.9 % Lymphocytes % 23.9 % Monocytes % 12.9 % Eosinophils % 6.6 % Basophils % 0.7 % Neutrophils Absolute (A) 4.2 1.5 - 6.6 10*3/uL Lymphocytes Absolute 1.8 1.0 - 3.5 10*3/uL Monocytes Absolute 1.0 (H) 0.0 - 0.9 10*3/uL Eosinophils Absolute 0.5 (H) 0.0 - 0.4 10*3/uL Basophils Absolute 0.1 0.0 - 0.2 10*3/uL Differential Type AUTOMATED DIFFERENTIAL Comprehensive metabolic panel Collection Time: 05/14/25 4:14 AM Result Value Ref Range SODIUM 139 134 - 146 mmol/L POTASSIUM 4.4 3.5 - 5.0 mmol/L CHLORIDE 108 98 - 109 mmol/L CARBON DIOXIDE 22 22 - 32 mmol/L ANION GAP 9 5 - 15 mmol/L BLOOD UREA NITROGEN 27 5 - 27 mg/dL CREATININE 1.30 (H) 0.40 - 1.00 mg/dL GLUCOSE 148 (H) 65 - 99 mg/dL CALCIUM 9.0 8.5 - 10.5 mg/dL TOTAL PROTEIN 6.6 6.0 - 8.0 g/dL ALBUMIN 2.9 (L) 3.2 - 5.3 g/dL ALKALINE PHOSPHATASE 128 39 - 130 U/L AST 23 <=41 U/L ALT 14 <=31 U/L BILIRUBIN,TOTAL 0.6 0.3 - 1.2 mg/dL EGFR Non-Race Dependent 42 (L) >=60 ml/min/1.73sq.m Magnesium Collection Time: 05/14/25 4:14 AM Result Value Ref Range MAGNESIUM 1.6 (L) 1.8 - 2.6 mg/dL Bedside Glucose *Place/Obtain serum glucose if >500 per glucometer. Collection Time: 05/14/25 11:26 AM Result Value Ref Range Bedside Glucose (POC) 223 (H) 65 - 99 mg/dL Radiology CT hip right without contrast Result Date: [...] 1. No acute change. Finalized by Berry Chavez MD on 05/13/2025 11:[address] lumbar [...] valve replacement. The distal portion of a SENIOR TAX ANALYST shunt is seen within the abdomen. Again [...] ovarian. There is partial visualization of a SENIOR TAX ANALYST shunt and changes of aortic valve replacement. All CT scans at this facility use dose modulation, iterative reconstruction, and/or weight based dosing when appropriate to reduce radiation dose to as low as reasonably achievable. Finalized by Laci Lima MD on 05/12/2025 12:37 PM X-ray spine lumbar 2 or 3 views Result Date: 05/11/2025 Narrative: XR SPINE LUMBAR 2 OR 3 VWS [...] Tony Suárez MD on 05/11/2025 2:28 AM Giovanny Huber MD have personally reviewed the image(s) and agree with and/or edited the report Finalized by Giovanny Zheng MD on 05/11/2025 2:32 AM X-ray chest 1 view Result Date: 04/28/2025 Narrative: XR CHEST 1 VW Clinical Information: ams Comparison: 03/16/2025. IMPRESSION: * Tubing overlying the right chest. No acute cardiopulmonary disease. Stable heart size. Old rib deformities. Prosthetic cardiac valve. Finalized by Joie Ellsworth MD on 04/28/2025 12:[address] brain without contrast Result Date: 04/28/2025 Narrative: CLINICAL HISTORY: Transient alteration in awareness. TECHNIQUE: Spiral CT of the brain was performed without contrast material. All CT scans at this facility use dose modulation, iterative reconstruction, and/or weight based dosing when appropriate to reduce radiation dose to as low as reasonably achievable. COMPARISONS: 02/12/2025. FINDINGS: Right frontal ventriculostomy unchanged with tip at midline near foramina of Castillo similar to prior exam. Some surrounding encephalomalacia about the ventriculostomy is stable. Encephalomalacia mesial left occipital lobe is unchanged likely reflecting remote infarct. The brain otherwise appears within normal limits in morphology and attenuation for the patient's stated age of 79 years. There is no intracranial mass nor mass effect. Ventricular system appears within normal limits. Basal cisterns and fourth ventricle appear patent. No parenchymal nor extra-axial hemorrhage is identified. Calvarium appears intact. IMPRESSION: No acute intracranial finding. No significant interval change. Finalized by Radha Sorenson MD on 04/28/2025 11:34 AM HOSPITAL PROBLEM LIST Principal Problem: Acute respiratory failure with hypoxia (CMS-HCC) Active Problems: 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) Mixed diabetic hyperlipidemia associated with type 2 diabetes mellitus (CMS-HCC) Obstructive sleep apnea syndrome Essential (primary) hypertension Acute on chronic diastolic congestive heart failure (CMS-HCC) Stage 3b chronic kidney disease (CMS-HCC) Type 2 diabetes mellitus with diabetic chronic kidney disease (CMS-HCC) Iron deficiency anemia Hypomagnesemia Closed fracture of right hip [place] [place] Nondisplaced fracture of lesser trochanter of right femur, initial encounter for closed fracture ([facility] [place]) ASSESSMENT & PLAN Acute respiratory failure with hypoxia: Resolved. Patient now on room air. Diabetic neuropathy: Continue home gabapentin. Anemia: Hemoglobin at baseline. Continue to monitor daily. Dm type 2: Monitor blood glucose a.c. and HS cover with sliding scale insulin. Sleep apnea: Encouraged CPAP use. Hypertension: Normotensive. Continue home Lasix. CKD 3: Creatinine at baseline. Continue to monitor daily. Hypomagnesemia: Supplement. Monitor electrolytes daily replace per protocol. Right hip fracture: Orthopedic surgery consult. Nonsurgical. Weightbearing as tolerated. Okay for physical therapy to evaluate and treat. Initially treating for sepsis with Zosyn and vancomycin. Patient was pulled out 3 IVs in 1 midline. After reviewing labs and vital signs, will discontinue IV antibiotics and change to oral doxycycline. Continue to monitor off IV antibiotics. Urine culture and blood cultures pending. Admission orders placed and home medications reconciled. DVT prophylaxis: EPC's and heparin subQ. GI prophylaxis. Protonix PT/OT to evaluate and treat. DC planning: Discharge home versus alf facility in 1-2 days. Sepsis suspected, yes-without organ failure as evidenced by altered mental status. Presumed source; sepsis of unknown origin. Testing obtained; blood cultures x2, urine culture, and lactate. Fluid resuscitation; less than 30 ml/kg IVF bolus due to high risk of being harmful due to not meeting septic shock criteria, instead no ml IVF bolus. Antibiotics; Zosyn and vancomycin. Vasopressors; not required. KAIDEN Hopkins, 05/14/2025 1:37 PM [facility] 7AM-7PM & 7PM-7AM: EpicChat or page through [employer]. This note is dictated with the use of M*Modal. Please note that this dictation was completed with computer voice recognition software. Quite often unanticipated grammatical, syntax, homophones, and other interpretive errors are inadvertently transcribed by the computer software. Please disregard these errors. Please excuse any errors that have escaped final proofreading. KAIDEN Hopkins 05/14/25 1314 Physician Attestation I, Felix Hallman MD, personally performed a face to face diagnostic evaluation on this patient. I have reviewed the note authored by the advance practice provider including history, review of systems,physical examination,medical decision making and agree with the assessment and plan as written. I have seen and evaluated the patient, I have repeated the hoffmann portions of the physical exam and concur with the PROMISE findings. I have reviewed all laboratory findings and imaging reports/films. I agree with the plan as noted. Patient with diastolic CHF, diabetes mellitus, is being admitted with acute hypoxemic respiratory failure due to acute diastolic CHF and right nondisplaced lesser trochanter femur fracture. On Lasix for diastolic CHF. Patient may be weight-bearing as tolerated per Orthopedic surgery recommendations. EKG shows sinus tachycardia heart rate of 115 with a QTC of 475. Trop 35-26 TSH 0.38, free T4 with a normal limit 1.05 on 08/23/2024. documented in this encounter [facility] 05-13-2025 Plan of care note Problem: Pain Goal: Patient goal is pain score less than 4, able to rest, and participant in treatment plan as appropriate Description: INTERVENTIONS: 1. Encourage patient or legal sales account representative to report early pain and ask for pain medicine when needed 2. Assess pain using appropriate pain scale and include the scale used when documenting 3. Administer analgesics based on type and severity of pain and evaluate response within appropriate time frame 4. Implement non-pharmacological measures as appropriate and evaluate response 5. Consider cultural and social influences on pain and pain management 6. Notify LIP if interventions ineffective or patient reports new pain 7. Monitor vital signs including pulse ox, end-tidal CO2 based on pain intervention 8. Reassess pain per policy 9. Teach patient or legal sales account representative interventions for comforting Outcome: Progressing Note: Evaluation of progress towards goal: Pt taking PRN tylenol which has been effective per patient. Rated pain in right arm a 3/10 on a scale of 0-10 due to IV infiltration in ER previously per shift report. Problem: Safety Goal: Patient will be injury free during hospitalization Description: INTERVENTIONS: 1. Assess patient's risk for falls and implement fall prevention plan of care per policy 2. Provide and maintain a safe environment 3. Proper use of double Identifiers 4. Medication administration using the 5 rights 5. Hand hygiene 6. Specimens are labeled at the bedside 7. Instruct patient/ patient sales account representative about use of safety devices 8. Include patient/ patient sales account representative in decisions related to safety Outcome: Progressing Note: Evaluation of progress towards goal: Pt safety maintained and pt free from injury. Tele sitter at bedside due to patient taking off medical equipment for monitoring. Call light within reach. Problem: Infection Goal: Absence of infection during hospitalization Description: INTERVENTIONS 1. Assess and monitor for signs and symptoms of infection. 2. Monitor lab/diagnostic results. 3. Monitor all insertion sites i.e., indwelling lines, tubes and drains. 4. Monitor endotracheal (as able) and nasal secretions for changes in amount and color. 5. Administer medications as ordered. 6. Instruct and encourage patient and family to use good hand hygiene technique. 7. Identify and instruct patient/patient sales account representative in use of appropriate isolation precautions for identified infection/symptoms. 8. Provide and discuss with patient/patient sales account representative on educational MDRO sheet. 9. Encourage and monitor nutritional status daily and consult senior linux systems administrator if indicated. 10. Implement neutropenic guidelines as needed. Outcome: Progressing Note: Evaluation of progress towards goal: Pt receiving IV ATB. [facility] 05-13-2025 Nurse Note Pt pulled put her IV and when senior underwriter asked why she stated, I don't know, I can't stop picking. New IV placed-ultrasound guided. Education provided and teach back method used. Pt able to state why she should not remove the medical equipment. Pt has taken off oxygen and tele patches several times despite redirection. Tele sitter initiated. Bed remains locked and lowered. Bed alarm on and call light within reach. [facility] 05-13-2025 Nurse Note Pt pulled put her IV and when senior underwriter asked why she stated, I don't know, I can't stop picking. New IV placed-ultrasound guided. Education provided and teach back method used. Pt able to state why she should not remove the medical equipment. Pt has taken off oxygen and tele patches several times despite redirection. Tele sitter initiated. Bed remains locked and lowered. Bed alarm on and call light within reach. documented in this encounter [facility] 05-13-2025 Plan of care note Problem: Pain Goal: Patient goal is pain score less than 4, able to rest, and participant in treatment plan as appropriate Description: INTERVENTIONS: 1. Encourage patient or legal sales account representative to report early pain and ask for pain medicine when needed 2. Assess pain using appropriate pain scale and include the scale used when documenting 3. Administer analgesics based on type and severity of pain and evaluate response within appropriate time frame 4. Implement non-pharmacological measures as appropriate and evaluate response 5. Consider cultural and social influences on pain and pain management 6. Notify LIP if interventions ineffective or patient reports new pain 7. Monitor vital signs including pulse ox, end-tidal CO2 based on pain intervention 8. Reassess pain per policy 9. Teach patient or legal sales account representative interventions for comforting Outcome: Progressing Note: Evaluation of progress towards goal: Pain assessed using appropriate pain scale and include the scale used when documenting. Administered analgesics based on type and severity of pain and evaluate response within appropriate time frame. Implemented non-pharmacological measures as appropriate and evaluate response. Problem: Safety Goal: Patient will be injury free during hospitalization Description: INTERVENTIONS: 1. Assess patient's risk for falls and implement fall prevention plan of care per policy 2. Provide and maintain a safe environment 3. Proper use of double Identifiers 4. Medication administration using the 5 rights 5. Hand hygiene 6. Specimens are labeled at the bedside 7. Instruct patient/ patient sales account representative about use of safety devices 8. Include patient/ patient sales account representative in decisions related to safety Outcome: Progressing Note: Evaluation of progress towards goal: Assessed patient's risk for falls and implemented fall prevention plan of care per protocol. Provided and maintained a safe environment. Used proper use of double Identifiers Problem: Infection Goal: Absence of infection during hospitalization Description: INTERVENTIONS 1. Assess and monitor for signs and symptoms of infection. 2. Monitor lab/diagnostic results. 3. Monitor all insertion sites i.e., indwelling lines, tubes and drains. 4. Monitor endotracheal (as able) and nasal secretions for changes in amount and color. 5. Administer medications as ordered. 6. Instruct and encourage patient and family to use good hand hygiene technique. 7. Identify and instruct patient/patient sales account representative in use of appropriate isolation precautions for identified infection/symptoms. 8. Provide and discuss with patient/patient sales account representative on educational MDRO sheet. 9. Encourage and monitor nutritional status daily and consult senior linux systems administrator if indicated. 10. Implement neutropenic guidelines as needed. Outcome: Progressing Note: Evaluation of progress towards goal: Isolation precautions followed per protocol. Equipment cleaned between patients. Handwashing protocol followed. [facility] 05-13-2025 Consult note Associated Order (s): PHARMACY TO DOSE VANCO Pharmacokinetic Consult - Vancomycin Dosing Cuca Goodwin is a 79 y.o. female for whom pharmacy has been consulted for vancomycin dosing for sepsis Today is day 1 of vancomycin therapy. Relevant clinical data and objective history reviewed: Allergies: Patient has no known allergies. Results from last 3 days Lab Units 05/13/25 1055 05/12/25 1124 CREATININE mg/dL 1.41* 1.37* BUN mg/dL 31* 25 WBC x10E9/L 9.0 6.8 HEMOGLOBIN g/dL 11.8 10.6* HEMATOCRIT % 36.0 32.5* MCV fL 84 84 Temp Readings from Last 3 Encounters: 05/13/25 36.8 C (98.3 F) 05/12/25 36.9 C (98.5 F) 05/11/25 36.5 C (97.7 F) (Oral) Renal Parameters: No intake/output data recorded. Calculated CrCl (IBW): 29.6ml/min Culture Data: Microbiology Results Procedure Component Value Units Date/Time Blood culture [[id number]] Collected: 05/13/25 110 Specimen: Blood, Venous Updated: 05/13/25 112 Blood culture [[id number]] Collected: 05/13/25 1108 Specimen: Blood, Venous Updated: 05/13/25 1122 Urine Culture Urine, Clean Catch Midstream [[id number]] Collected: 05/12/25 1301 Specimen: Urine, Clean Catch Midstream Updated: 05/12/25 1359 Concurrent Antibiotics: Anti-infectives (From admission, onward) Start Dose/Rate Route Frequency Ordered Stop 05/13/25 1600 piperacillin-tazobactam (ZOSYN) IVPB 3.375 g/50 mL in iso-osmotic dextrose (67.5 mg/mL premix) 3.375 g 12.5 mL/hr over 4 Hours intravenous Every 8 hours 05/13/25 1445 05/13/25 1140 vancomycin (VANCOCIN) 1,750 mg in sodium chloride 0.9 % 500 mL IVPB W/ADAPTER Placed in And Linked Group 20 mg/kg 85.7 kg 250 mL/hr over 120 Minutes intravenous Once 05/13/25 1107 Recent Vancomycin Serum Concentrations: Indication: Sepsis Goal Vancomycin Range: AUC 400-600 mcg*hr/mL Assessment Vancomycin 1,750mg given in ER at 1326 Calculations WT= 85.7kg Vd= 59.99L Crcl= 29.6ml/min CL= 1.776L/HR Ke= 0.0296hrs- T 1/2= 23.4hrs Plan Recommend to dose at 1,250mg every 36hrs. Monitor BUN/Scr daily and draw peak and trough around 3rd dose. Pharmacy Dosing Service to follow serum concentrations and adjust as needed based on the patient's clinical status. Thank you for consulting. Joie Garcia RPH [facility] 05-13-2025 History of Present illness Narrative Adjusted dose of Zosyn to 3.375grams every 8 hours for diagnosis of sepsis and crcl 29.6ml/min Joie Garcia PharmD [facility] documented in this encounter [facility] 05-13-2025 Physician Emergency department Note Associated Order(s): Critical Care Images from the original note were not included. [facility] - EMERGENCY Pt Name: Cuca Goodwin Birthdate: 1945 Chief Complaint: Chief Complaint Patient presents with Back Pain Pt presents via ems for right sided back pain from sciatica. Was here yesterday. Daughter called EMS for transport. Pt denies any SOB or CP, but presents at 90% spo2 on 3L/NC. History of Present Illness: Patient returns to ER for 4th day in a row. She has been evaluated for right hip pain 3 days in a row without clear etiology other than musculoskeletal pain. She refused admission yesterday. Pain is in the right hip and is worse with any movement. No neurological symptoms. CT of lumbar spine yesterday showed chronic L1 fracture with minimal worsening of retropulsion. EMS called to the home for the 3rd time today for right hip pain. Today the patient is significantly different today. She is weak and drowsy, reports shortness of breath and was requiring supplemental oxygen. She denies chest pain. No fever. Patient is dressed in the same clothing and wearing a soiled brief. She lives with her daughter and grandson but they don't currently have transportation. She has history of HTN, HLD, previous stroke, CKD, DM, chronic back pain, s/p TAVR, CAD post PCI 2022, severe post TAVR, NHP post shunt, recently admitted for staph bacteremia in February Past Medical History: Past Medical History: Diagnosis Date Anemia Arthritis Asthma very mild, no inhaler use Cataract Dental disease Depression Diabetes mellitus ([facility] Diabetes mellitus type 2, controlled ([facility]) Encephalitis Foot fracture, left GERD (gastroesophageal reflux disease) Heart murmur HLD (hyperlipidemia) Hypertension Incontinence Injury of back Insulin dependent diabetes mellitus Kidney failure STAGE 4 Lumbar spondylolysis Murmur Obesity CHELSEA (obstructive sleep apnea) no machine Peptic ulceration Peripheral vascular disease Shortness of breath Stroke ([facility]) 02/27/2024 TIA (transient ischemic attack) Upper respiratory infection UTI (urinary tract infection) Visual impairment Wears dentures Past Surgical History: Past Surgical History: Procedure Laterality Date BREAST BIOPSY Right 03/01/2023 ULT BIOPSY CATARACT EXTRACTION SECTION SECTION 03/14/1974 EGD N/A 10/17/2019 Performed by Sarai Bell DO at [facility] H-PERCUTANEOUS CORONARY INTERVENTION HYSTEROSCOPY DILATION CURETTAGE MYOSURE N/A 01/29/2021 Performed by Jv Briones MD at [facility] INJECTION BLOCK EPIDURAL CAUDAL STEROID N/A 08/14/2022 Performed by Arnulfo Gonzalez MD at [facility] INJECTION BLOCK EPIDURAL CAUDAL STEROID N/A 06/06/2021 Performed by Arnulfo Gonzalez MD at [facility] INJECTION BLOCK EPIDURAL CAUDAL STEROID N/A 04/25/2021 Performed by Arnulfo Gonzalez MD at [facility] INJECTION CAUDAL EPIDURAL WITH CATHETER, STEROID N/A 05/03/2020 Performed by Arnulfo Gonzalez MD at [facility] INJECTION CAUDAL EPIDURAL WITH CATHETER, STEROID N/A 11/24/2019 Performed by Arnulfo Gonzalez MD at [facility] INJECTION CAUDAL EPIDURAL WITH CATHETER, STEROID N/A 04/21/2019 Performed by Arnulfo Gonzalez MD at [facility] INJECTION MEDIAL BRANCH NERVE BLOCK Bilateral L 4/5, 5/1 Bilateral 08/18/2019 Performed by Arnulfo Gonzalez MD at [facility] MEDIAL BRANCH NERVE BLOCK Bilateral L 4/5, 5/1 Bilateral 06/23/2019 Performed by Arnulfo Gonzalez MD at [facility] INJECTION STEROID EPI 1 WITH SEDATION Right L 4, 5 NR Right 03/17/2019 Performed by Arnulfo Gonzalez MD at [facility] INJECTION STEROID EPI 1 WITH SEDATION: right L45 nroot Right 08/15/2018 Performed by Arnulfo Gonzalez MD at [facility] LEFT L4, AND 5 NERVE ROOT INJECTION 2 OF 2 Left 07/22/2018 Performed by Arnulfo Gonzalez MD at [facility] LEFT L4, AND L5 NERVE ROOT 1 OF 2 Left 07/04/2018 Performed by Arnulfo Gonzalez MD at [facility] SHUNT INSERTION TONSILLECTOMY AGE 4 Transcutaneous aortic valve replacement/Transfemoral/Kwan N/A 08/17/2023 Performed by Chava Norris MD at [facility] Valvuloplasty aortic N/A 06/03/2023 Performed by Chava Norris MD at [facility] Family History: Family History [...] Somewhat hard Food Insecurity: No Food Insecurity (05/13/2025) Hunger Screening Food Insecurity - Worry: Never True Food Insecurity - Inability: Never True Transportation Needs: Unmet Transportation Needs (05/13/2025) PRAPARE - Transportation Lack of Transportation (Medical): No Lack of Transportation (Non-Medical): Yes Physical Activity: Inactive (10/28/2024) Exercise Vital Sign Days of Exercise per Week: 0 days Minutes of Exercise per Session: 0 min Stress: Stress Concern Present (10/28/2024) [employer] - Occupational Stress Questionnaire Feeling of Stress : To some extent Social Connections: Moderately Integrated (10/28/2024) Social Connection and Isolation Panel [NHANES] Frequency of Communication with Friends and Family: Never Frequency of Social Gatherings with Friends and Family: More than three times a week Attends Episcopal Services: More than 4 times per year [...] of Systems Physical Exam: ED Triage Vitals [05/13/25 1034] Temp Pulse Resp BP SpO2 36.8 C (98.3 F) -- 22 98/61 91 % Temp src Heart Rate Source Patient Position BP Location FiO2 (%) -- -- Semi-fowlers Left arm -- Vitals: 05/13/25 1141 05/13/25 1430 05/13/25 1500 05/13/25 1620 BP: 123/71 124/69 (!) 120/95 Temp: 37 C (98.6 F) TempSrc: Oral Pulse: 107 108 107 93 Resp: 21 (!) 26 21 (!) 28 SpO2: 92% (!) 75% 94% MAP (mmHg): 85 125 Height: 165.1 cm (5' 5 ) Weight: 83.4 kg (183 lb 13.8 oz) 75 Physical Exam Vitals reviewed. Constitutional: Appearance: She is ill-appearing. Comments: Elderly frail ill HENT: Head: Normocephalic and atraumatic. Mouth/Throat: Mouth: Mucous membranes are dry. Eyes: Conjunctiva/sclera: Conjunctivae normal. Cardiovascular: Rate and Rhythm: Tachycardia present. Pulmonary: Effort: Pulmonary effort is normal. Breath sounds: Normal breath sounds. Comments: Occasional cough Abdominal: General: There is no distension. Palpations: Abdomen is soft. Genitourinary: Comments: Intertrigo Musculoskeletal: General: Tenderness present. Normal range of motion. Cervical back: Normal range of motion and neck supple. Comments: Tenderness on palpation of the right hip and with any range of motion of the right leg. DP PT pulses are palpable. Distal sensation and motor function is intact Skin: General: Skin is warm and dry. Coloration: Skin is pale. Neurological: General: No focal deficit present. Mental Status: She is alert and oriented to person, place, and time. GCS: GCS eye subscore is 4. GCS verbal subscore is 5. GCS motor subscore is 6. Comments: Patient seems drowsy and sluggish but does respond to verbal stimuli and answers all orientation questions appropriately Procedure: Critical Care Performed by: Jack Milligan DO [...] specialty: yes Care discussed with: admitting provider Re-evaluation: Re-Evaluation Medical Decision Making Patient here for her 4th emergency room visit 40s for continued right hip pain. Today she looked different than yesterday. Patient was tachycardic lethargic now requiring supplemental oxygen. Laboratories are stable compared to yesterday. Normal white count. No fever. Imaging of the right hip shows a minimally displaced inferior trochanteric fracture which could be the source of her pain. Hypoxia is new today. Patient was not appear that she has been cared for home. She lives with her daughter but she arrived wearing the same clothes as yesterday and in a soiled brief. It does not appear that she was receiving any care at home. Because of the patient's tachycardia, lethargy, initial soft blood pressure and recent admission for bacteremia without a clear source, I work the patient up for sepsis and started her on empiric antibiotics. I discussed with our hospitalist who agrees to admit There is concern that patient may be septic, therefore the sepsis bundle was initiated. Blood Cultures, Urine culture & Lactate with reflex were ordered Source of Infection: unknown IV Fluids given: less than 30mL/kg IVF given as patient does not meet septic shock criteria at this time Broad Spectrum Antibiotics given: zosyn and vancomycin Date: 05/13/25, Time: 1230 I performed the sepsis reassessment after the fluid bolus was initiated on the patient. Vasopressor Support: Not initiated based on patient's response to crystalloid infusion. 30 minutes of Critical Care. This time was used for chart review, phone calls, re-evaluation and documentation. This time excludes procedure time. Amount and/or Complexity of Data Reviewed Labs: ordered. Details: Labs notable for: mild elevation of cr compared to yesterday Radiology: ordered. Details: Chest x-ray interpreted by radiology shows no acute process. CT of the right hip interpreted by radiology shows nondisplaced lesser trochanteric fracture ECG/medicine tests: ordered. Discussion of management or test interpretation with external provider(s): 11:[address] Martins ton container shipper for Dr Joiner, after discussion with the patient, she was a patient of Deja Ley who had previously worked in Dr joiner's office. Patient reports she was planning on seeing Dr. Contreras has now that valve is no longer working there but has never been seen by him in person. On review of previous records patient has traditionally been admitted to the hospitalist for her past few admissions. I did discuss with Dr. Martins on-call for Dr. Joiner who recommends admission to the hospitalist 1:40 PM Spoke with Nayana Bermudez APRN-BARTOLO for Dr Martinez, who reviewed case and is agreeable to admit the patient for further care and evaluation. Risk OTC drugs. Prescription drug management. Decision regarding hospitalization. Diagnosis or treatment significantly limited by social determinants of health. HEART Score Age: 65+ ED Course: ED Course as of 05/15/25 1410 [place] May 13, 2025 1049 ECG notable for sinus tachycardia. LBBB. [SURINDER] ED Course User Index [SURINDER] Jack Milligan, DO Clinical Impressions as of 05/15/25 1410 Acute respiratory failure with hypoxia ([facility]) Nondisplaced fracture of lesser trochanter of right femur, initial encounter for closed fracture ([facility]) Generalized weakness Closed fracture of right hip, initial encounter ([facility]) Hypoxia Type 2 diabetes mellitus with hypoglycemia without coma, with long-term current use of insulin ([facility]) . ED Disposition ED Disposition Admit Date/Time [place] May 13, 2025 1:37 PM Comment At this time, the patient has objective evidence of an acute process that will likely require hospitalization for greater than 2 midnights. The patient will be admitted. Medications Prescribed this Visit This print group is not available in inpatient encounters. Please contact a manager systems. Shared/Split Visit 11:24 EDT Jazmine Huber (scribkyara), scribed for and in the presence of: Dr. Heri Milligan who performed the above service. Dr. Chel Huber personally performed a [id number] diagnostic evaluation on this patient. I personally made and approved the management plan for this patient and take responsibility for the patient management. Additional Notes/Findings: Cuca Goodwin is a 79 y.o. female presenting to the ED for chief complaint of back pain. Pt states she is experiencing pain in her right hip, is currently on room air but is not usually on oxygen at home. Exam findings as follows: Constitutional: Awake and alert HENT: Head normocephalic and atraumatic Eyes: conjunctiva unremarkable Cardiovascular: Tachycardia present Pulmonary: Easy work of breathing, speaking full sentences Abdominal: Flat and non-distended Skin: Warm and dry Musculoskeletal: Moving all extremities spontaneously, tenderness to right hip Neurological: No focal deficits Please note that portions of this note were completed with a voice recognition program. Efforts were made to edit the dictations but occasionally words are mis-transcribed. Jazmine Jimenez 05/13/25 1128 Jazmine Vicki Bustillo, 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 05/13/25 1200 Jazmine Bustillo, 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 05/13/25 1255 Jazmine Bustillo, 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 05/13/25 1305 Jazmine Bustillo, 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 05/13/25 1341 Jazmine Bustillo, 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 05/13/25 2121 Jack Milligan DO 05/14/25 2254 [facility] 05-13-2025 Emergency department Note Associated Order(s): Critical Care Images from the original note were not included. [facility] - EMERGENCY Pt Name: Cuca Goodwin Birthdate: 1945 Chief Complaint: Chief Complaint Patient presents with Back Pain Pt presents via ems for right sided back pain from sciatica. Was here yesterday. Daughter called EMS for transport. Pt denies any SOB or CP, but presents at 90% spo2 on 3L/NC. History of Present Illness: Patient returns to ER for 4th day in a row. She has been evaluated for right hip pain 3 days in a row without clear etiology other than musculoskeletal pain. She refused admission yesterday. Pain is in the right hip and is worse with any movement. No neurological symptoms. CT of lumbar spine yesterday showed chronic L1 fracture with minimal worsening of retropulsion. EMS called to the home for the 3rd time today for right hip pain. Today the patient is significantly different today. She is weak and drowsy, reports shortness of breath and was requiring supplemental oxygen. She denies chest pain. No fever. Patient is dressed in the same clothing and wearing a soiled brief. She lives with her daughter and grandson but they don't currently have transportation. She has history of HTN, HLD, previous stroke, CKD, DM, chronic back pain, s/p TAVR, CAD post PCI 2022, severe post TAVR, NHP post shunt, recently admitted for staph bacteremia in February Past Medical History: Past Medical History: Diagnosis Date Anemia Arthritis Asthma very mild, no inhaler use Cataract Dental disease Depression Diabetes mellitus [place] Diabetes mellitus type 2, controlled ([facility]) Encephalitis Foot fracture, left GERD (gastroesophageal reflux disease) Heart murmur HLD (hyperlipidemia) Hypertension Incontinence Injury of back Insulin dependent diabetes mellitus Kidney failure STAGE 4 Lumbar spondylolysis Murmur Obesity CHELSEA (obstructive sleep apnea) no machine Peptic ulceration Peripheral vascular disease Shortness of breath Stroke ([facility]) 02/27/2024 TIA (transient ischemic attack) Upper respiratory infection UTI (urinary tract infection) Visual impairment Wears dentures Past Surgical History: Past Surgical History: Procedure Laterality Date BREAST BIOPSY Right 03/01/2023 ULT BIOPSY CATARACT EXTRACTION SECTION SECTION 03/14/1974 EGD N/A 10/17/2019 Performed by Sarai Bell DO at [facility] H-PERCUTANEOUS CORONARY INTERVENTION HYSTEROSCOPY DILATION CURETTAGE MYOSURE N/A 01/29/2021 Performed by Jv Briones MD at [facility] INJECTION BLOCK EPIDURAL CAUDAL STEROID N/A 08/14/2022 Performed by Arnulfo Gonzalez MD at [facility] INJECTION BLOCK EPIDURAL CAUDAL STEROID N/A 06/06/2021 Performed by Arnulfo Gonzalez MD at [facility] INJECTION BLOCK EPIDURAL CAUDAL STEROID N/A 04/25/2021 Performed by Arnulfo Gonzalez MD at [facility] INJECTION CAUDAL EPIDURAL WITH CATHETER, STEROID N/A 05/03/2020 Performed by Arnulfo Gonzalez MD at [facility] INJECTION CAUDAL EPIDURAL WITH CATHETER, STEROID N/A 11/24/2019 Performed by Arnulfo Gonzalez MD at [facility] INJECTION CAUDAL EPIDURAL WITH CATHETER, STEROID N/A 04/21/2019 Performed by Arnulfo Gonzalez MD at [facility] INJECTION MEDIAL BRANCH NERVE BLOCK Bilateral L 4/5, 5/ Bilateral 08/18/2019 Performed by Arnulfo Gnozalez MD at [facility] INJECTION MEDIAL BRANCH NERVE BLOCK Bilateral L 4/5, 5/ Bilateral 06/23/2019 Performed by Arnulfo Gonzalez MD at [facility] INJECTION STEROID EPI 1 WITH SEDATION Right L 4, 5 NR Right 03/17/2019 Performed by Arnulfo Gonzalez MD at [facility] INJECTION STEROID EPI 1 WITH SEDATION: right L45 nroot Right 08/15/2018 Performed by Arnulfo Gonzalez MD at [facility] LEFT L4, AND 5 NERVE ROOT INJECTION 2 OF 2 Left 07/22/2018 Performed by Arnulfo Gonzalez MD at [facility] LEFT L4, AND L5 NERVE ROOT 1 OF 2 Left 07/04/2018 Performed by Arnulfo Gonzalez MD at [facility] SHUNT INSERTION TONSILLECTOMY AGE 4 Transcutaneous aortic valve replacement/Transfemoral/Kwan N/A 08/17/2023 Performed by Chava Norris MD at [facility] Valvuloplasty aortic N/A 06/03/2023 Performed by Chava Norris MD at [facility] Family History: Family History [...] Somewhat hard Food Insecurity: No Food Insecurity (05/13/2025) Hunger Screening Food Insecurity - Worry: Never True Food Insecurity - Inability: Never True Transportation Needs: Unmet Transportation Needs (05/13/2025) PRAPARE - Transportation Lack of Transportation (Medical): No Lack of Transportation (Non-Medical): Yes Physical Activity: Inactive (10/28/2024) Exercise Vital Sign Days of Exercise per Week: 0 days Minutes of Exercise per Session: 0 min Stress: Stress Concern Present (10/28/2024) [employer] - Occupational Stress Questionnaire Feeling of Stress : To some extent Social Connections: Moderately Integrated (10/28/2024) Social Connection and Isolation Panel [NHANES] Frequency of Communication with Friends and Family: Never Frequency of Social Gatherings with Friends and Family: More than three times a week Attends Episcopal Services: More than 4 times per year [...] of Systems Physical Exam: ED Triage Vitals [05/13/25 1034] Temp Pulse Resp BP SpO2 36.8 C (98.3 F) -- 22 98/61 91 % Temp src Heart Rate Source Patient Position BP Location FiO2 (%) -- -- Semi-fowlers Left arm -- Vitals: 05/13/25 1141 05/13/25 1430 05/13/25 1500 05/13/25 1620 BP: 123/71 124/69 (!) 120/95 Temp: 37 C (98.6 F) TempSrc: Oral Pulse: 107 108 107 93 Resp: 21 (!) 26 21 (!) 28 SpO2: 92% (!) 75% 94% MAP (mmHg): 85 125 Height: 165.1 cm (5' 5 ) Weight: 83.4 kg (183 lb 13.8 oz) 75 Physical Exam Vitals reviewed. Constitutional: Appearance: She is ill-appearing. Comments: Elderly frail ill HENT: Head: Normocephalic and atraumatic. Mouth/Throat: Mouth: Mucous membranes are dry. Eyes: Conjunctiva/sclera: Conjunctivae normal. Cardiovascular: Rate and Rhythm: Tachycardia present. Pulmonary: Effort: Pulmonary effort is normal. Breath sounds: Normal breath sounds. Comments: Occasional cough Abdominal: General: There is no distension. Palpations: Abdomen is soft. Genitourinary: Comments: Intertrigo Musculoskeletal: General: Tenderness present. Normal range of motion. Cervical back: Normal range of motion and neck supple. Comments: Tenderness on palpation of the right hip and with any range of motion of the right leg. DP PT pulses are palpable. Distal sensation and motor function is intact Skin: General: Skin is warm and dry. Coloration: Skin is pale. Neurological: General: No focal deficit present. Mental Status: She is alert and oriented to person, place, and time. GCS: GCS eye subscore is 4. GCS verbal subscore is 5. GCS motor subscore is 6. Comments: Patient seems drowsy and sluggish but does respond to verbal stimuli and answers all orientation questions appropriately Procedure: Critical Care Performed by: Jack Milligan DO [...] specialty: yes Care discussed with: admitting provider Re-evaluation: Re-Evaluation Medical Decision Making Patient here for her 4th emergency room visit 40s for continued right hip pain. Today she looked different than yesterday. Patient was tachycardic lethargic now requiring supplemental oxygen. Laboratories are stable compared to yesterday. Normal white count. No fever. Imaging of the right hip shows a minimally displaced inferior trochanteric fracture which could be the source of her pain. Hypoxia is new today. Patient was not appear that she has been cared for home. She lives with her daughter but she arrived wearing the same clothes as yesterday and in a soiled brief. It does not appear that she was receiving any care at home. Because of the patient's tachycardia, lethargy, initial soft blood pressure and recent admission for bacteremia without a clear source, I work the patient up for sepsis and started her on empiric antibiotics. I discussed with our hospitalist who agrees to admit There is concern that patient may be septic, therefore the sepsis bundle was initiated. Blood Cultures, Urine culture & Lactate with reflex were ordered Source of Infection: unknown IV Fluids given: less than 30mL/kg IVF given as patient does not meet septic shock criteria at this time Broad Spectrum Antibiotics given: zosyn and vancomycin Date: 05/13/25, Time: 1230 I performed the sepsis reassessment after the fluid bolus was initiated on the patient. Vasopressor Support: Not initiated based on patient's response to crystalloid infusion. 30 minutes of Critical Care. This time was used for chart review, phone calls, re-evaluation and documentation. This time excludes procedure time. Amount and/or Complexity of Data Reviewed Labs: ordered. Details: Labs notable for: mild elevation of cr compared to yesterday Radiology: ordered. Details: Chest x-ray interpreted by radiology shows no acute process. CT of the right hip interpreted by radiology shows nondisplaced lesser trochanteric fracture ECG/medicine tests: ordered. Discussion of management or test interpretation with external provider(s): 11:[address] Martins ton container shipper for Dr Joiner, after discussion with the patient, she was a patient of Deja Ley who had previously worked in Dr joiner's office. Patient reports she was planning on seeing Dr. Contreras has now that valve is no longer working there but has never been seen by him in person. On review of previous records patient has traditionally been admitted to the hospitalist for her past few admissions. I did discuss with Dr. Martins on-call for Dr. Joiner who recommends admission to the hospitalist 1:40 PM Spoke with Nayana RICHEY for Dr Martinez, who reviewed case and is agreeable to admit the patient for further care and evaluation. Risk OTC drugs. Prescription drug management. Decision regarding hospitalization. Diagnosis or treatment significantly limited by social determinants of health. HEART Score Age: 65+ ED Course: ED Course as of 05/15/25 1410 [place] May 13, 2025 1049 ECG notable for sinus tachycardia. LBBB. [SURINDER] ED Course User Index [SURINDER] Jack Milligan DO Clinical Impressions as of 05/15/25 1410 Acute respiratory failure with hypoxia ([facility]) Nondisplaced fracture of lesser trochanter of right femur, initial encounter for closed fracture ([facility]) Generalized weakness Closed fracture of right hip, initial encounter ([facility]) Hypoxia Type 2 diabetes mellitus with hypoglycemia without coma, with long-term current use of insulin ([facility]) . ED Disposition ED Disposition Admit Date/Time [place] May 13, 2025 1:37 PM Comment At this time, the patient has objective evidence of an acute process that will likely require hospitalization for greater than 2 midnights. The patient will be admitted. Medications Prescribed this Visit This print group is not available in inpatient encounters. Please contact a manager systems. Shared/Split Visit 11:24 EDT Jazmine Huber (maria eugenia), scribed for and in the presence of: Dr. Heri Milligan who performed the above service. I, Dr. Milligan personally performed a [id number] diagnostic evaluation on this patient. I personally made and approved the management plan for this patient and take responsibility for the patient management. Additional Notes/Findings: Cuca Goodwin is a 79 y.o. female presenting to the ED for chief complaint of back pain. Pt states she is experiencing pain in her right hip, is currently on room air but is not usually on oxygen at home. Exam findings as follows: Constitutional: Awake and alert HENT: Head normocephalic and atraumatic Eyes: conjunctiva unremarkable Cardiovascular: Tachycardia present Pulmonary: Easy work of breathing, speaking full sentences Abdominal: Flat and non-distended Skin: Warm and dry Musculoskeletal: Moving all extremities spontaneously, tenderness to right hip Neurological: No focal deficits Please note that portions of this note were completed with a voice recognition program. Efforts were made to edit the dictations but occasionally words are mis-transcribed. Jazmine Jimenez 05/13/25 1128 KAIDEN Phillips 05/13/25 1200 KAIDEN Phillips 05/13/25 1255 Jazmine uBstillo APRN-BARTOLO 05/13/25 1305 KAIDEN Phillips 05/13/25 1341 KAIDEN Phillips 05/13/25 2121 Jack Milligan DO 05/14/25 225 documented in this encounter [facility] 05-13-2025 Note Procedure: Chest x-ray performed Number of views:1 History:Shortness of breath Comparison:04/28/2025 Findings: The heart and lungs show no acute findings, and the mediastinum and stanley are grossly negative . Tube overlying right chest stable. Impression: 1. No acute change. Finalized by Berry Chavez MD on 05/13/2025 11:01 AM [facility] 04-05-2025 Note Division of Infectio us Diseases - Outpatient Clinic Note Patient name: Cuca Goodwin Patient Today's Date and Time: 04/05/2025, 11:44 AM Primary Care Physician: Pam Ley MD Reason for consultation / Chief complaint: Bloodstream infection History of Present Illness: This is a 79-year-old female patient who was initially admitted on February 14, 2025. 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 She also previously underwent a TAVR and has a SENIOR TAX ANALYST shunt for NPH. She presented to the emergency department with altered mental status. Blood cultures were obtained that showed MRSA. It was unclear the primary source, but she was found to have multiple self-induced skin excoriations. A BULMARO was negative. She was discharged on intravenous ceftaroline that would conclude on February 28, 2025. She was also to be treated with intravenous daptomycin that would conclude after 6 weeks on April 04, 2025. The patient is completing a hospital follow-up with our service today to evaluate for any change of symptoms.She is completing this visit via video with her daughter. She completed her antibiotic as prescribed yesterday. She did not experience any side effects from the antibiotic. She denied having any fevers, chills, chest pain, shortness of breath, abdominal pain, nausea, vomiting, or diarrhea. She reports the wounds that she previously had while she was in the hospital have healed. She denied having any other change in symptoms. Past Medical History: Past Medical History: Diagnosis Date Aortic stenosis Asthma Atrial fibrillation (CMS/HCC) Cancer (CMS/HCC) 02/2023 right breast, metastatic Cataract CKD (chronic kidney disease) Coronary artery disease Depression Diabetes mellitus (CMS/HCC) Dyslipidemia GERD (gastroesophageal reflux disease) Hypertension Ischemic stroke (CMS/HCC) 02/2024 seen at [facility] NPH (normal pressure hydrocephalus) (CMS/HCC) PVD (peripheral vascular disease) Sleep apnea Past Surgical History: Past Surgical History: Procedure Laterality Date BREAST BIOPSY Right 03/01/2023 CATARACT EXTRACTION SECTION, CLASSIC CORONARY ANGIOPLASTY WITH STENT PLACEMENT 2022 HYSTEROSCOPY IR MISC SHUNTOGRAM 06/27/2020 IR MISC SHUNTOGRAM CHILDERS CONVERSION IR MISC SHUNTOGRAM 04/03/2022 IR MISC SHUNTOGRAM CHILDERS CONVERSION MR HEAD ANGIO WO IV CONTRAST 05/07/2020 MR HEAD ANGIO WO IV CONTRAST 05/07/2020 TONSILLECTOMY VENTRICULOPERITONEAL SHUNT 06/25/2020 Codman Haferniem programmable valve. Medications: Social History: Social History Socioeconomic History Marital status: Single Spouse name: None Number of children: None Years of education: None Highest education level: None Occupational History None Tobacco Use Smoking status: Never Smokeless tobacco: Never Substance and Sexual Activity Alcohol use: Never Drug use: Never Sexual activity: Defer Other Topics Concern None Social History Narrative None Social Determinants of Health Financial Resource Strain: Medium Risk (10/28/2024) Received from [facility] Overall Financial Resource Strain (CARDIA) Difficulty of Paying Living Expenses: Somewhat hard Food Insecurity: No Food Insecurity (04/04/2025) Received from [facility] Hunger Screening Within the past 12 months we worried whether our food would run out before we got money to buy more.: Never True Within the past 12 months the food we bought just didn't last and we didn't have money to get more.: Never True Transportation Needs: No Transportation Needs (03/16/2025) [email or web address] - [facility] Lack of Transportation (Medical): No Lack of Transportation (Non-Medical): No Physical Activity: Inactive (10/28/2024) Received from [facility] Exercise Vital Sign Days of Exercise per Week: 0 days Minutes of Exercise per Session: 0 min Stress: Stress Concern Present (10/28/2024) Received from [facility] [employer]ational [employer] - Occupational Stress Questionnaire Feeling of Stress : To some extent Social Connections: Moderately Integrated (10/28/2024) [facility] Social Connection and Isolation Panel [NHANES] Frequency of Communication with Friends and Family: Never Frequency of Social Gatherings with Friends and Family: More than three times a week Attends Episcopal Services: More than 4 times per year Active Member of Clubs or Organizations: Yes Attends Club or Organization Meetings: More than 4 times per year Marital Status: Never Intimate Partner Violence: Unknown (05/23/2024) Humiliation, Afraid, Rape, and Kick questionnaire Fear of Current or Ex-Partner: No Emotionally Abused: Not on file Physically Abused: Not on file Sexually Abused: Not on file Housing Stability: (more content not included)... [facility] 04-04-2025 History of Present illness Narrative Images from the original note were not included. [address] [place] [address] SUBJECTIVE: Patient ID: Cuca Goodwin is a 79 y.o. female. Chief Complaint Patient presents with follow up Patient is accompanied by daughter today. States [employer] will be coming in for evaluation to assist in the home. Her daughter resides with patient who cares for her; assist with meal preparation and ADLS. Daughter would like assistance in the home. Patient and daughter have discussed possible long term placement as well but this is not cost effective. Today, she relates she just finished IV antibiotic infusions, daptomycin, previously prescribed by Infectious Disease. Is managed by endocrine for Type 2 DM. She sees cardiology. She is also monitored by neurology for normal pressure hydrocephalus. Hypertension This is a chronic problem. The current episode started more than 1 year ago. The problem is controlled. Pertinent negatives include no chest pain, palpitations or shortness of breath. There are no associated agents to hypertension. Risk factors for coronary artery disease include obesity, post-menopausal state, diabetes mellitus, dyslipidemia and family history. Past treatments include beta blockers, JON inhibitors and diuretics. The current treatment provides significant improvement. There are no compliance problems. Identifiable causes of hypertension include chronic renal disease and renovascular disease. Hyperlipidemia This is a chronic problem. The current episode started more than 1 year ago. The problem is controlled. Exacerbating diseases include chronic renal disease, diabetes and obesity. There are no known factors aggravating her hyperlipidemia. Associated symptoms include myalgias. Pertinent negatives include no chest pain or shortness of breath. Current antihyperlipidemic treatment includes statins. The current treatment provides significant improvement of lipids. There are no compliance problems. Risk factors for coronary artery disease include diabetes mellitus, dyslipidemia and family history. Diabetes She presents for her follow-up diabetic visit. She has type 2 diabetes mellitus. Her disease course has been improving. There are no hypoglycemic associated symptoms. Associated symptoms include weakness. Pertinent negatives for diabetes include no chest pain. There are no hypoglycemic complications. Symptoms are stable. There are no diabetic complications. Risk factors for coronary artery disease include dyslipidemia, diabetes mellitus, hypertension, obesity and post-menopausal. Current diabetic treatment includes oral agent (monotherapy), insulin injections and intensive insulin program. She is compliant with treatment most of the time. She is following a diabetic diet. Meal planning includes avoidance of concentrated sweets. She rarely participates in exercise. Home blood sugar record trend: Fluctuates depending on daily diet. Her breakfast blood glucose range is generally 140-180 mg/dl. The following portions of the patient's history were reviewed and updated as appropriate: allergies, current medications, past family history, past medical history, past social history, past surgical history and problem list. Past Surgical History: Procedure Laterality Date BREAST BIOPSY Right 03/01/2023 ULT BIOPSY CATARACT EXTRACTION SECTION SECTION 03/14/1974 EGD N/A 10/17/2019 Performed by Sarai Bell DO at [facility] H-PERCUTANEOUS CORONARY INTERVENTION HYSTEROSCOPY DILATION CURETTAGE MYOSURE N/A 01/29/2021 Performed by Jv Briones MD at [facility] INJECTION BLOCK EPIDURAL CAUDAL STEROID N/A 08/14/2022 Performed by Arnulfo Gonzalez MD at [facility] INJECTION BLOCK EPIDURAL CAUDAL STEROID N/A 06/06/2021 Performed by Arnulfo Gonzalez MD at [facility] INJECTION BLOCK EPIDURAL CAUDAL STEROID N/A 04/25/2021 Performed by Arnulfo Gonzalez MD at [facility] INJECTION CAUDAL EPIDURAL WITH CATHETER, STEROID N/A 05/03/2020 Performed by Arnulfo Gonzalez MD at [facility] INJECTION CAUDAL EPIDURAL WITH CATHETER, STEROID N/A 11/24/2019 Performed by Arnulfo Gonzalez MD at [facility] INJECTION CAUDAL EPIDURAL WITH CATHETER, STEROID N/A 04/21/2019 Performed by Arnulfo Gonzalez MD at [facility] INJECTION MEDIAL BRANCH NERVE BLOCK Bilateral L 4/5, 5/1 Bilateral 08/18/2019 Performed by Arnulfo Gonzalez MD at [facility] INJECTION MEDIAL BRANCH NERVE BLOCK Bilateral L 4/5, 5/1 Bilateral 06/23/2019 Performed by Arnulfo Gonzalez MD at [facility] INJECTION STEROID EPI 1 WITH SEDATION Right L 4, 5 NR Right 03/17/2019 Performed by Arnulfo Gonzalez MD at [facility] INJECTION STEROID EPI 1 WITH SEDATION: right L45 nroot Right 08/15/2018 Performed by Arnulfo Gonzalez MD at [facility] LEFT L4, AND 5 NERVE ROOT INJECTION 2 OF 2 Left 07/22/2018 Performed by Arnulfo Gonzalez MD at [facility] LEFT L4, AND L5 NERVE ROOT 1 OF 2 Left 07/04/2018 Performed by Arnulfo Gonzalez MD at [facility] SHUNT INSERTION TONSILLECTOMY AGE 4 Transcutaneous aortic valve replacement/Transfemoral/Kwan N/A 08/17/2023 Performed by Chava Norris MD at [facility] Valvuloplasty aortic N/A 06/03/2023 Performed by Chava Norris MD at [facility] Past Medical History: Diagnosis Date Anemia Arthritis Asthma very mild, no inhaler use Cataract Dental disease Depression Diabetes mellitus ([facility] Diabetes mellitus type 2, controlled ([facility]) Encephalitis Foot fracture, left GERD (gastroesophageal reflux disease) Heart murmur HLD (hyperlipidemia) Hypertension Incontinence Injury of back Insulin dependent diabetes mellitus Kidney failure STAGE 4 Lumbar spondylolysis Murmur Obesity CHELSEA (obstructive sleep apnea) no machine Peptic ulceration Peripheral vascular disease Shortness of breath Stroke ([facility]) 02/27/2024 TIA (transient ischemic attack) Upper respiratory infection UTI (urinary tract infection) Visual impairment Wears dentures Immunization History Administered Date(s) Administered COVID-19, mRNA, LNP-S, PF, 30mcg/0.3mL Dose 01/07/2021, 02/04/2021 Influenza High Dose Preservative Free IM 08/27/2021 Influenza Vaccine, Quadrivalent, Adjuvanted 08/06/2022, 08/10/2023 Influenza, High-dose, Quadrivalent 08/30/2020 Influenza, Injectable, Quadrivalent 09/14/2019 Influenza, Injectable, quadrivalent (PF) 09/07/2017, 08/31/2018, 09/11/2019, 11/25/2020 Influenza, Trivalent, Adjuvanted 08/28/2024 Pneumococcal Conjugate 13-Valent 05/28/2021 Pneumococcal Polysaccharide 06/29/2015, 07/10/2015, 05/16/2020 Tuberculin Skin Test; Unspecified Formulation 05/10/2020, 04/06/2023, 04/13/2023, 04/12/2024, 04/24/2024 REVIEW OF SYSTEMS: Review of Systems Constitutional: [...] bruise/bleed easily. Psychiatric/Behavioral: Negative. PHYSICAL EXAMINATION: Vitals: 04/04/25 0901 BP: 108/68 BP Site: Left Arm BP Postition: Sitting BP CUFF SIZE: M (9-13 inches) Pulse: 88 Resp: 20 Temp: 36.5 C (97.7 F) TempSrc: Tympanic SpO2: 93% Weight: 83.9 kg (185 lb) Height: 165.1 cm (5' 5 ) Patient [...] normal. ASSESSMENT/PLAN: Cuca was seen today for follow up. Diagnoses and all orders for this visit: Moderate major depression ([facility]) Insomnia, unspecified type Normal pressure hydrocephalus ([facility]) Acute on chronic diastolic heart failure ([facility]) Diabetes mellitus type 2, insulin dependent ([facility]) Other orders - Cancel: Lift Chair Type 2 DM -Managed by endocrine in [place], Dr. Majano. She believes her A1c is below 7% -States blood sugars have been stable Checks her sugars 4 times daily. Has Dexcom system Continue sliding scale Novolog as directed, Levemir as directed Encourage routine home blood sugar monitoring, diet modification, and exercise regimen. Yearly eye exams Daily self skin foot checks Depression Depression: Not at risk (04/04/2025) PHQ-2 PHQ-2 Score: 0 She feels her moods are stable with sertraline and Remeron States she is taking 100 mg oral daily. Has tried to stay in good spirits regardless of health CKD stage 3b Stable Is monitored by nephrology Creatinine 1.3, GFR 42 Stable Congestive Heart Failure Severe aortic stenosis history, NSTEMI , TAVR 2022 Continue plan of care per cardiology Normal pressure hydrocephalus Managed routinely by neuro Stable Body mass index is 30.79 kg/m . Patient noted to have elevated BMI and the following intervention(s) were applied: Discussed current weight today. Consider healthy food choices, portion control. Avoid sugary beverages and high concentrated sweets. Routine exercise regimen encouraged. ALL QUESTIONS ANSWERED Total time spent was 25 minutes: Preparing to see the patient (e.g., review of tests) Obtaining and/or reviewing separately obtained history Performing a medically appropriate examination and/or evaluation Counseling and educating the patient/family/caregiver Ordering medications, tests, or procedures Follow-up: Move next weeks Medicare wellness to June. KAIDEN Werner 04/04/25 1537 [facility] History of Present illness Narrative Patient is here for tentative last dose of IV daptomycin. PIV initiated in left AC on second attempt. Brisk blood return verified, IV flushes and patient denies any complaints. Unable to obtain labs from PIV. Daptomycin initiated and venipuncture completed in right hand to obtain weekly labs. Patient tolerated well and site covered with pressure dressing. Daptomycin completed without issues. PIV flushed, discontinued and pressure dressing applied. Patient's daughter states patient sees ID today and they will ask if patient will need one more dose of medication due to missing dose on Wednesday r/t nurse not being able to obtain IV access. Patient discharged in stable condition to public transportation in care of her daughter. documented in this encounter [facility] 04-01-2025 History of Present illness Narrative Pt here for IV daptomycin. After multiple IV attempts. Unable to obtain IV access. Daughter states pt is not drinking much fluids. Encouraged to hydrate and will re attempt for IV daptomycin as scheduled on Wednesday. Pt and daughter agree and v/u. documented in this encounter [facility] 03-30-2025 History of Present illness Narrative Pt arrived in her w/c with her daughter. PIV working well. Pt c/o nausea which subsided with drinking Starry. Daptomycin infused w/o difficulty. PIV removed afterwards. Pt and daughter left to return Wednesday. documented in this encounter [facility] 03-28-2025 History of Present illness Narrative Pt here for IV daptomycin as scheduled. Tolerating infusions. Pt pulled out picc line yesterday. PIV initiated after 3 attempts. Brisk blood return verified. Flushes with ease. Daptomycin started and infused over 30 minutes without incident. Line flushed and saline locked. Pt requests to leave IV in for infusion Wednesday. IV secured and covered. Instructed not to unwrap or pull at IV. Dc'd in stable condition with daughter. documented in this encounter [facility] 03-26-2025 History of Present illness Narrative The patient is here today for Daptomycin She comes in with walking with a Rolator PICC line in place, brisk blood return noted Daptomycin started and completed over 30 min PICC line dressing change completed Patient tolerated well Patient discharged in stable condition to daughter documented in this encounter [facility] 03-24-2025 History of Present illness Narrative The patient is here today for Daptomycin She comes in with walking with a Rolator PICC line in place, brisk blood return noted Lab draw completed from PICC Daptomycin started and completed over 30 min PICC line dressing change completed Patient tolerated well Patient discharged in stable condition to daughter documented in this encounter [facility] 03-22-2025 History of Present illness Narrative Patient accompanied for IV Daptomycin. Reports she has been tolerated prior infusions well without issues or concerns. PICC line flushes easily with brisk blood return. Daptomycin infused over 30 minutes. Picc line flushes and saline locked. Dressing noted to be clean dry and intact (changed at prior infusion 03/20/25) Patient reports she has calendar and verbalizes understanding of future appointments. documented in this encounter [facility] 03-20-2025 History of Present illness Narrative Consult received on ambulatory infusion patient to assist with transportation resources for IV AB infusion. Chart reviewed. Aged Or Disabled Carer met with pleasant pt & her daughter Ileana, introduced self & role. Ileana informs trips is not able to provide transportation on Wednesday. Ileana is unexpectedly without a vehicle, her son does not drive, pt said she's unsure if her brother would assist as she's not spoken with him for a while. They have a friend who assisted with transportation today however her time is limited; neighbors are not an option. Aged Or Disabled Carer notes pt has [employer] Medicare, informed pt & daughter that some plans offer medical appointment transportation. Ileana informs pt had used this a long time ago; senior underwriter offered Access to Care phone number for [employer] transportation services, Ileana informs she has number in phone. Encouraged Ileana to call [employer] to try to get on schedule. Pt does not endorse food insecurity, is receiving small amount of SNAP. Pt does not have Medicaid, pt & daughter relay pt had Medicaid but was cut in november due possibly something about utility bills. Aged Or Disabled Carer encouraged pt/Ileana to re-apply for Medicaid. Pt has medical bills; educated on [employer] & provided [facility] Pt Financial Advocates name/contact information to reach out for assistance. Educated on [employer] Services, how to go about to request in home assessment; [employer] information sheet provided. Provided [employer] Wrong [employer] info sheet for area resources; pt declined [employer] Senior Directory stating she has booklet. Ileana contacting [employer] Medicare transport services at this time to arrange transportation. Provided writers contact information, senior underwriter available if needed. Message to Ambulatory RN CN at PCP office requesting follow up with patient. documented in this encounter [facility] 03-20-2025 History of Present illness Narrative Patient is here for IV daptomycin. She has been tolerating it okay. PICC line flushes well but only small amount of blood return. Labs drawn peripherally to right forearm on second attempt. Daptomycin infused over 30 minutes. Picc line flushes and saline locked. Dressing changed under sterile technique. Patient given calendar, verbalized understanding of future appointments and her daughter states she has transportation lined up. documented in this encounter [facility] 03-14-2025 History of Present illness Narrative Patient is here for daptomycin infusion today. She has been receiving medication and tolerating well. PICC to right upper arm clean, dry and intact except for bottom inside corner noted to be rolling slightly. Tegaderm reinforced. PICC with small amount of blood return today and flushes with ease. Patient denies any discomfort with PICC care and no edema or redness noted to insertion site. Daptomycin infused over 30 minutes without incident and patient tolerated well. PICC flushed, saline locked and green disinfectant cap applied. Treatment calendar provided. Patient discharged in stable condition, in care of daughter, to private vehicle. documented in this encounter [facility] 03-12-2025 History of Present illness Narrative The patient is here today for Daptomycin She comes in with walking with a Rolator PICC line in place, brisk blood return noted Lab draw completed from PICC Daptomycin started and completed over 30 min PICC line dressing change completed Patient tolerated well Patient discharged in stable condition to daughter documented in this encounter [facility] 03-08-2025 Miscellaneous Notes Called to schedule new pt appt and was informed that the pt was already seeing nephrology. documented in this encounter [facility] 03-08-2025 Telephone encounter Note Called to schedule new pt appt and was informed that the pt was already seeing nephrology. [facility] 02-20-[address] CHEST WO CONT PROCEDURE: CT CHEST WITHOUT CONTRAST CLINICAL INDICATION: Bacteremia. COMPARISON STUDY: 02/14/2025. TECHNIQUE: CT was performed of the chest without intravenous contrast. Coronal & sagittal MPR images were generated and reviewed. Computer aided detection for pulmonary nodules was performed utilizing [employer] software. FINDINGS: Lack of intravenous contrast limits evaluation of the vessels and viscera. Heart & Pericardium: Severe coronary calcification. No significant pericardial fluid. Thoracic Aorta & Great Vessels: TAVR. Dilated ascending aorta, maximum diameter 4.0 cm. Pulmonary Arteries: Moderately enlarged central pulmonary arteries, which can be seen with pulmonary arterial hypertension, with main pulmonary artery measuring 3.7 cm. Mediastinum & Esophagus: Unremarkable. Lymph Nodes: No enlarged thoracic lymph nodes. Lower Neck & Thyroid: Unremarkable. Visualized Upper Abdomen: Partially imaged ventriculostomy catheter. Central Airway: Tracheomalacia. Lungs: Mosaic attenuation; given expiratory phase imaging, this most likely reflects atelectasis. No focal consolidation. Pleura: No pleural effusion or pneumothorax. Thoracic Spine & Chest Wall: No suspicious osseous lesion. Old right rib fractures. Redemonstrated subacute left seventh rib fracture. Old moderate compression fracture L1 vertebral body, mild compression fracture L2 vertebral body, severe compression fracture T1 vertebral body. Multifocal osseous lucencies. Other Lines/Tubes/Devices/Hardware: None. IMPRESSION: * No acute consolidation. * Redemonstrated subacute left seventh rib fracture. * Similar appearance multifocal osseous metastases. All CT scans at this facility use dose modulation, iterative reconstruction, and/or weight based dosing when appropriate to reduce radiation dose to as low as reasonably achievable. Finalized by Lacho Soliman on 02/20/2025 8:21 AM [facility] 02-18-2025 Miscellaneous Notes Contract: [id number] Dania [facility] [phone] re critical lab Secure chat Rosario documented in this encounter [facility] 02-18-2025 Telephone encounter Note Contract: [id number] Dania [facility] [phone] re critical lab Secure chat Rosario [facility] 01-25-2025 History of Present illness Narrative Images from the original note were not included. [facility] 01/25/25 Cuca Goodwin is a 79 y.o. year old female seen today in the oncology clinic. Chief Complaint Patient presents with Follow-up History of Present Illness: Mrs. Goodwin is a 79 y.o. female with history of aortic valve stenosis, she had PCI earlier in the year at [facility] for coronary disease. during the cardiac [...] mammary carcinoma, grade 2, ER strongly positive IL moderately positive and HER2 negative. There was also suspicious spine lesion, MRI showed extensive bony lesions. Femara palliative intent 03/2023, patient lost her insurance ran out of medication August 2024, resumed treatment January 2025. Interval history: The patient is doing well on Femara treatment. She underwent TAVR surgery s and recovered very well. Her PET scan May 2024 showed complete response, no significant FDG take. Unfortunately since August 2024, she lost her insurance unable to continue Femara treatment for the past 6 months. She denies any significant musculoskeletal discomfort. Back pain seems to be stable. No weight loss. No new breast lesions. She is here to re-establish care. Past Medical History: Diagnosis Date Anemia Arthritis Asthma very mild, no inhaler use Cataract Dental disease Depression Diabetes mellitus [place] Diabetes mellitus type 2, controlled ([facility]) Encephalitis Foot fracture, left GERD (gastroesophageal reflux disease) Heart murmur HLD (hyperlipidemia) Hypertension Incontinence Injury of back Insulin dependent diabetes mellitus Kidney failure STAGE 4 Lumbar spondylolysis Murmur Obesity CHELSEA (obstructive sleep apnea) no machine Peptic ulceration Peripheral vascular disease ([facility] Shortness of breath Stroke ([facility]) 02/27/2024 TIA (transient ischemic attack) Upper respiratory infection UTI (urinary tract infection) Visual impairment Wears dentures Past Surgical History: Procedure Laterality Date BREAST BIOPSY Right 03/01/2023 ULT BIOPSY CATARACT EXTRACTION SECTION SECTION 03/14/1974 EGD N/A 10/17/2019 Performed by Sarai Bell DO at [facility] H-PERCUTANEOUS CORONARY INTERVENTION HYSTEROSCOPY DILATION CURETTAGE MYOSURE N/A 01/29/2021 Performed by Jv Briones MD at [facility] INJECTION BLOCK EPIDURAL CAUDAL STEROID N/A 08/14/2022 Performed by Arnulfo Gonzalez MD at [facility] INJECTION BLOCK EPIDURAL CAUDAL STEROID N/A 06/06/2021 Performed by Arnulfo Gonazlez MD at [facility] INJECTION BLOCK EPIDURAL CAUDAL STEROID N/A 04/25/2021 Performed by Arnulfo Gonzalez MD at [facility] INJECTION CAUDAL EPIDURAL WITH CATHETER, STEROID N/A 05/03/2020 Performed by Arnulfo Gonzalez MD at [facility] INJECTION CAUDAL EPIDURAL WITH CATHETER, STEROID N/A 11/24/2019 Performed by Arnulfo Gonzalez MD at [facility] INJECTION CAUDAL EPIDURAL WITH CATHETER, STEROID N/A 04/21/2019 Performed by Arnulfo Gonzalez MD at [facility] MEDIAL BRANCH NERVE BLOCK Bilateral L 4/5, 5/1 Bilateral 08/18/2019 Performed by Arnulfo Gonzalez MD at [facility] INJECTION MEDIAL BRANCH NERVE BLOCK Bilateral L 4/5, 5/1 Bilateral 06/23/2019 Performed by Arnulfo Gonzalez MD at [facility] INJECTION STEROID EPI 1 WITH SEDATION Right L 4, 5 NR Right 03/17/2019 Performed by Arnulfo Gonzalez MD at [facility] INJECTION STEROID EPI 1 WITH SEDATION: right L45 nroot Right 08/15/2018 Performed by Arnulfo Gonzalez MD at [facility] LEFT L4, AND 5 NERVE ROOT INJECTION 2 OF 2 Left 07/22/2018 Performed by Arnulfo Gonzalez MD at [facility] LEFT L4, AND L5 NERVE ROOT 1 OF 2 Left 07/04/2018 Performed by Arnulfo Gonzalez MD at [facility] SHUNT INSERTION TONSILLECTOMY AGE 4 Transcutaneous aortic valve replacement/Transfemoral/Kwan N/A 08/17/2023 Performed by Chava Norris MD at [facility] CARDI[facility]ATH [facility] Valvuloplasty aortic N/A 06/03/2023 Performed by Chava Norris MD at [facility] Family History Problem [...] Somewhat hard Food Insecurity: No Food Insecurity (01/11/2025) Hunger Screening Food Insecurity - Worry: Never True Food Insecurity - Inability: Never True Transportation Needs: No Transportation Needs (11/09/2024) PRAPARE - Transportation Lack of Transportation (Medical): No Lack of Transportation (Non-Medical): No Physical Activity: Inactive (10/28/2024) Exercise Vital Sign Days of Exercise per Week: 0 days Minutes of Exercise per Session: 0 min Stress: Stress Concern Present (10/28/2024) [employer] - Occupational Stress Questionnaire Feeling of Stress : To some extent Social Connections: Moderately Integrated (10/28/2024) Social Connection and Isolation Panel [NHANES] Frequency of Communication with Friends and Family: Never Frequency of Social Gatherings with Friends and Family: More than three times a week Attends [employer] Services: More than 4 times per year Active Member of Clubs or Organizations: Yes Attends Club or Organization Meetings: More than 4 times per year Marital Status: Never Interpersonal Safety: Not At Risk (11/09/2024) Humiliation, Afraid, Rape, and Kick questionnaire Fear of Current or Ex-Partner: No Emotionally Abused: No Physically Abused: No Sexually Abused: No Housing Instability: Low Risk (11/09/2024) Housing Instability Housing Instability: No No Known Allergies Medication List Accurate as of January 25, 2025 3:55 PM. If you have any questions, ask your nurse or doctor. New Medications Ordered This Visit letrozole 2.5 mg chemo tablet Quantity: 90 tablet Refills: 3 Dose: 2.5 mg Signed by: Casimiro Muñoz 2.5 mg, oral, Daily Commonly known as: FEMARA Started by: Casimiro Muñoz Medications Continued This Visit acetaminophen 500 mg tablet Refills: 0 Dose: 1,000 mg Commonly known as: TYLENOL EXTRA STRENGTH aspirin 81 mg Refills: 0 Dose: 81 mg atorvastatin 40 mg tablet Quantity: 90 tablet Refills: 1 For diagnoses: Mixed diabetic hyperlipidemia associated with type 2 diabetes mellitus ([facility] Dose: 40 mg Signed by: KAIDEN Santana 40 mg, oral, Nightly Commonly known as: LIPITOR blood-glucose meter misc Quantity: 1 each Refills: 0 Doctor's comments: Whatever covered by insurance For diagnoses: Controlled type 2 diabetes mellitus with diabetic nephropathy, without long-term current use of insulin ([facility] Signed by: KAIDEN Santana Monitor blood sugars four times daily and as needed 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 Refills: 0 Generic drug: blood-glucose meter,continuous DEXCOM G7 SENSOR device Refills: 0 Generic drug: blood-glucose sensor furosemide 20 mg tablet Refills: 0 Dose: 20 mg Commonly known as: LASIX gabapentin 300 mg capsule Quantity: 180 capsule Refills: 1 Doctor's comments: 90 Day Supply with one refill For diagnoses: 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 mellitus ([facility] [place] Dose: 300 mg Signed by: KAIDEN Santana 300 mg, oral, 2 times daily Commonly known as: NEURONTIN insulin aspart U-100 100 unit/mL (3 mL) insulin pen Refills: 0 Commonly known as: NovoLOG insulin detemir U-100 100 unit/mL (3 mL) insulin pen Quantity: 15 mL Refills: 12 Dose: 15 Units Signed by: KAIDEN Diaz 15 Units, subcutaneous, Nightly Commonly known as: LEVEMIR * lancets misc Quantity: 200 each Refills: 0 Doctor's comments: Whatever covered by insurance For diagnoses: Controlled type 2 diabetes mellitus with diabetic nephropathy, without long-term current use of insulin ([facility] Signed by: KAIDEN Santana Monitor blood sugars four times daily and as needed Commonly known as: onetouch ultrasoft * ONETOUCH DELICA PLUS LANCET 33 gauge misc Refills: 0 Generic drug: lancets lidocaine 4 % Quantity: 30 patch Refills: 0 Dose: 1 patch Signed by: Dr. Mely Larios MD 1 patch, transdermal, Every 24 hours Commonly known as: SALONPAS lisinopriL 5 mg tablet Refills: 0 Dose: 5 mg Commonly known as: PRINIVIL,ZESTRIL metoprolol tartrate 25 mg tablet Quantity: 60 tablet Refills: 11 Dose: 12.5 mg Signed by: KAIDEN Billingsley 12.5 mg, oral, 2 times daily Commonly known as: LOPRESSOR mirtazapine 7.5 mg tablet Quantity: 90 tablet Refills: 1 For diagnoses: Insomnia, unspecified type Dose: 7.5 mg Signed by: KAIDEN Santana 7.5 mg, oral, Nightly Commonly known as: REMERON nystatin powder Quantity: 60 g Refills: 1 For diagnoses: Beverly infection of flexural skin Dose: 1 Application Signed by: KAIDEN Santana 1 Application, topical, 4 times daily Commonly known as: MYCOSTATIN traZODone 100 mg tablet Quantity: 90 tablet [...] appearing, in no acute distress. Vitals: BP 112/60 Pulse 86 Temp 36.7 C (98.1 F) (Oral) Resp 18 Ht 165.1 cm (5' 5 ) Wt 86.6 kg (191 lb) LMP (LMP Unknown) SpO2 97% BMI 31.78 kg/m Body mass index is 31.78 kg/m . Eyes: No icterus, no conjuctival [...] breast, 8 o'clock position close to the nipple, the lesion seems to be stable to me. There is no axillary lymphadenopathy. Left breast [...] 03/01/2023 1:35 PM 5 BIOPSY Recent Labs: Recent Results (from the past 2 weeks) Comprehensive metabolic panel Collection Time: 01/22/25 2:50 PM Result Value Ref Range Sodium 134 134 - 146 mmol/L Potassium, Bld 5.1 (H) 3.5 - 5.0 mmol/L Chloride 96 (L) 98 - 109 mmol/L CO2 27 22 - 32 mmol/L Anion gap 11 5 - 15 mmol/L BUN 31 (H) 5 - 27 mg/dL Creatinine 1.75 (H) 0.40 - 1.00 mg/dL Glucose 291 (H) 65 - 99 mg/dL Calcium 9.6 8.5 - 10.5 mg/dL Total Protein 7.7 6.0 - 8.0 g/dL Albumin 3.9 3.2 - 5.3 g/dL Alkaline Phosphatase 102 39 - 130 U/L AST 18 0 - 41 U/L ALT 16 0 - 31 U/L Total bilirubin 0.5 0.3 - 1.2 mg/dL eGFR (CKD-EPI)non-race dependent 29 (L) >59 ml/min/1.73sq.m Cancer Antigen 27.29 Collection Time: 01/22/25 2:50 PM Result Value Ref Range Cancer Antgn 27.29 56.4 (H) <=39.0 U/mL Cancer antigen 15-3 Collection Time: 01/22/25 2:50 PM Result Value Ref Range CA 15-3 13.6 0.0 - 31.3 U/mL CBC auto differential Collection Time: 01/22/25 2:50 PM Result Value Ref Range White Blood Cells 7.3 4.0 - 11.0 X10E9/L RBC count 3.50 (L) 3.80 - 5.20 X10E12/L Hemoglobin 9.6 (L) 11.7 - 15.5 g/dL Hematocrit 29.1 (L) 35 - 47 % MCV 83 80 - 100 fL MCH 27.3 27 - 34 pg MCHC 32.9 32 - 36 g/dL RDW 16.2 (H) 11.5 - 15.0 % Platelets 333 150 - 450 X10E9/L MPV 8.5 7 - 12 fL % neutrophils 67.2 % % lymphocytes 19.6 % % monocytes 10.5 % % eosinophils 2.1 % % Basophils 0.6 % Neutrophils Absolute (A) 4.9 1.5 - 6.6 X10E9/L Lymphocytes Absolute 1.4 1.0 - 3.5 X10E9/L Monocytes Absolute 0.8 0 - 0.9 X10E9/L Eosinophils Absolute 0.2 0.0 - 0.4 X10E9/L Basophils Absolute 0.0 0.0 - 0.2 X10E9/L Diagnosis Problem list: Problem List Items Addressed This Visit Musculoskeletal and Integument Metastasis to bone (CMS-HCC) Relevant Medications letrozole (FEMARA) 2.5 mg chemo tablet Other 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 breast in female, estrogen receptor positive (CMS-HCC) - Primary Relevant Medications letrozole (FEMARA) 2.5 mg chemo tablet Impression: Right-sided breast cancer, ERPR positive HER2 [...] patient underwent a successful aortic balloon valvuloplasty The patient's PET scan 05/2024 reviewed, there is no scintigraphic avid uptake in her bones. No evidence of distant metastasis. Unfortunately the patient lost follow-up and stop taking Femara treatment from August 2024. Patient's CA 27.29 increased from 10-50 over the past 6 months, highly suspicious for disease progression PET scan now to assess her disease status. Bilateral screening mammogram, for screening and also measurement of her right breast lesion. F/u in 3 months, CBC, CMP, CA 15-3, CA 27.29. I emphasized the importance of treatment compliance. Patient verbalized understanding and wishes to continue current treatment. Casimiro Muñoz MD Please note that portions of this note were generated using voice recognition to-BBB dictation software. Although every effort was made to ensure the accuracy of this automated director broadcast, some errors in director broadcast may have occurred. CC: Patient Care Team: KAIDEN Werner as PCP - General (Family Medicine) John Quiles MD (Nephrology) KAIDEN Hsu as Nurse Practitioner (Pulmonary Medicine) Madison Ye MD as Referring Physician (Endocrinology, Diabetes & Metabolism) Casimiro Muñoz MD as Consulting Physician (Hematology) PCP:Pam Ley Referring MD: Pam Ley AP* documented in this encounter [facility] 01-25-2025 Instructions Casimiro Muñoz MD - 01/25/2025 2:15 PM EDT PET scan now. Bilateral screening mammogram. F/u in 3 months, CBC, CMP, CA 15-3, CA 27.29. [email or web address] History of Present illness Narrative Images from the original note were not included. [address] [place] [address] SUBJECTIVE: Patient ID: Cuca Goodwin is a 79 y.o. female. Chief Complaint Patient presents with retaining water Insomnia Presents today with multiple complaints. Is accompanied by daughter today. Last week, her abdomen appeared to be swollen and retaining water but states is now resolved. Her primary concern is insomnia. States has been reoccurring now for months. She is currently taking trazodone 100 mg oral nightly. She does admit to taking two trazodone (200mg) and has helped somewhat with sleeping. States I can't shut my brain down at night, I worry about things during the night . The following portions of the patient's history were reviewed and updated as appropriate: allergies, current medications, past family history, past medical history, past social history, past surgical history and problem list. Past Surgical History: Procedure Laterality Date BREAST BIOPSY Right 03/01/2023 ULT BIOPSY CATARACT EXTRACTION SECTION SECTION 03/14/1974 EGD N/A 10/17/2019 Performed by Sarai Bell DO at [facility] H-PERCUTANEOUS CORONARY INTERVENTION HYSTEROSCOPY DILATION CURETTAGE MYOSURE N/A 01/29/2021 Performed by Jv Briones MD at [facility] INJECTION BLOCK EPIDURAL CAUDAL STEROID N/A 08/14/2022 Performed by Arnulfo Gonzalez MD at [facility] INJECTION BLOCK EPIDURAL CAUDAL STEROID N/A 06/06/2021 Performed by Arnulfo Gonzalez MD at [facility] INJECTION BLOCK EPIDURAL CAUDAL STEROID N/A 04/25/2021 Performed by Arnulfo Gonzalez MD at [facility] INJECTION CAUDAL EPIDURAL WITH CATHETER, STEROID N/A 05/03/2020 Performed by Arnulfo Gonzalez MD at [facility] INJECTION CAUDAL EPIDURAL WITH CATHETER, STEROID N/A 11/24/2019 Performed by Arnulfo Gonzalez MD at [facility] INJECTION CAUDAL EPIDURAL WITH CATHETER, STEROID N/A 04/21/2019 Performed by Arnulfo Gonzalez MD at [facility] INJECTION MEDIAL BRANCH NERVE BLOCK Bilateral L 4/5, 5/ Bilateral 08/18/2019 Performed by Arnulfo Gonzalez MD at [facility] MEDIAL BRANCH NERVE BLOCK Bilateral L 4/5, 5/ Bilateral 06/23/2019 Performed by Arnulfo Gonzalez MD at [facility] INJECTION STEROID EPI 1 WITH SEDATION Right L 4, 5 NR Right 03/17/2019 Performed by Arnulfo Gonzalez MD at [facility] INJECTION STEROID EPI 1 WITH SEDATION: right L45 nroot Right 08/15/2018 Performed by Arnulfo Gonzalez MD at [facility] LEFT L4, AND 5 NERVE ROOT INJECTION 2 OF 2 Left 07/22/2018 Performed by Arnulfo Gonzalez MD at [facility] LEFT L4, AND L5 NERVE ROOT 1 OF 2 Left 07/04/2018 Performed by Arnulfo Gonzalez MD at [facility] SHUNT INSERTION TONSILLECTOMY AGE 4 Transcutaneous aortic valve replacement/Transfemoral/Kwan N/A 08/17/2023 Performed by Chava Norris MD at [facility]ATH [facility] Valvuloplasty aortic N/A 06/03/2023 Performed by Chava Norris MD at [facility] Past Medical History: Diagnosis Date Anemia Arthritis Asthma very mild, no inhaler use Cataract Dental disease Depression Diabetes mellitus [place] Diabetes mellitus type 2, controlled ([facility] Encephalitis Foot fracture, left GERD (gastroesophageal reflux disease) Heart murmur HLD (hyperlipidemia) Hypertension Incontinence Injury of back Insulin dependent diabetes mellitus Kidney failure STAGE 4 Lumbar spondylolysis Murmur Obesity CHELSEA (obstructive sleep apnea) no machine Peptic ulceration Peripheral vascular disease ([facility] Shortness of breath Stroke ([facility] 02/27/2024 TIA (transient ischemic attack) Upper respiratory infection UTI (urinary tract infection) Visual impairment Wears dentures Immunization History Administered Date(s) Administered COVID-19, mRNA, LNP-S, PF, 30mcg/0.3mL Dose 01/07/2021, 02/04/2021 Influenza High Dose Preservative Free IM 08/27/2021 Influenza Vaccine, Quadrivalent, Adjuvanted 08/06/2022, 08/10/2023 Influenza, High-dose, Quadrivalent 08/30/2020 Influenza, Injectable, Quadrivalent 09/14/2019 Influenza, Injectable, quadrivalent (PF) 09/07/2017, 08/31/2018, 09/11/2019, 11/25/2020 Influenza, Trivalent, Adjuvanted 08/28/2024 Pneumococcal Conjugate 13-Valent 05/28/2021 Pneumococcal Polysaccharide 07/10/2015 REVIEW OF SYSTEMS: Review of Systems Constitutional: Negative for chills and fever. HENT: Negative. Eyes: Negative for visual disturbance. Respiratory: Negative for chest tightness and shortness of breath. Cardiovascular: Negative for chest pain, palpitations and leg swelling. Gastrointestinal: Negative. Endocrine: Negative. Genitourinary: Negative for menstrual problem and pelvic pain. Musculoskeletal: Negative. Skin: Negative. Allergic/Immunologic: Negative. Neurological: Negative for syncope and facial asymmetry. Hematological: Does not bruise/bleed easily. Psychiatric/Behavioral: Positive for sleep disturbance. PHYSICAL EXAMINATION: Vitals: 01/22/25 1353 BP: 110/70 BP Site: Left Arm BP Postition: Sitting Pulse: 91 Resp: 18 Temp: 36.8 C (98.2 F) TempSrc: Oral SpO2: 92% Weight: 86.9 kg (191 lb 9.6 oz) Height: 165.1 cm (5' 5 ) Patient noted to have elevated BMI and the following intervention(s) were applied: encouragement to exercise. Component Latest Ref Rng 01/10/2025 Sodium 134 - 146 mmol/L 135 Potassium 3.5 - 5.0 mmol/L 4.6 Chloride 98 - 109 mmol/L 98 CO2 22 - 32 mmol/L 25 Anion gap 5 - 15 mmol/L 12 BUN 5 - 27 mg/dL 26 Creatinine 0.40 - 1.00 mg/dL 1.32 (H) Glucose 65 - 99 mg/dL 130 (H) Calcium 8.5 - 10.5 mg/dL 9.4 Total Protein 6.0 - 8.0 g/dL 8.4 (H) Albumin 3.2 - 5.3 g/dL 3.9 Alkaline phosphatase 39 - 130 U/L 110 AST 0 - 41 U/L 32 ALT 0 - 31 U/L 21 Total bilirubin 0.3 - 1.2 mg/dL 0.6 eGFR (CKD-EPI)non-race dependent >59 ml/min/1.73sq.m 41 (L) Physical Exam Vitals and nursing note reviewed. [...] mass. Tenderness: There is no abdominal tenderness. Comments: Soft, non distended Musculoskeletal: General: Normal range of motion. Cervical [...] normal. ASSESSMENT/PLAN: Cuca was seen today for retaining water and insomnia. Diagnoses and all orders for this visit: Insomnia, unspecified type - mirtazapine (REMERON) 7.5 mg tablet; Take 1 tablet (7.5 mg total) by mouth nightly. Moderate episode of recurrent major depressive disorder (CMS-HCC) Stage 3b chronic kidney disease (CMS-HCC) CKD stage 3b Stable Is monitored by nephrology. Dr. Turner Creatinine 1.32 GFR 41 Depression Insomnia States moods have been overall stable. She is frustrated with her health at times. Is primarily concerned about chronic insomnia today Insomnia Start mirtazapine 7.5 mg oral nightly Continue trazodone 100 mg oral nightly Education regarding taking medication as prescribed. Patient admitted to taking up to 200 mg of trazodone when the order is for 100 mg. Patient and daughter voiced understanding. 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 Right assessment Proliferative diabet ic retinopathy of left eye with macular edema associated with type 2 diabetes mellitus impression Proliferative diabet ic retinopathy of left eye with macular edema associated with type 2 diabetes mellitus: E11.3512. Left assessment Intermediate stage n onexudative age-related macular degeneration of both eyes impression Intermediate stage n onexudative age-related macular degeneration of both eyes: H35.3132. Bilateral assessment Presence of intraocular lens Jan impression Presence of intraocular lens: Z9 6.1. Bilateral assessment PVD (posterior vitreous detachme nt), both eyes impression PVD (posterior vitre ous detachment), both eyes: H43.813. Bilateral assessment Epiretinal membrane (ERM) of lef t eye impression Epiretinal membrane (ERM) of left eye: H35.372. Left [facility] Work Phone: [phone] History of Present illness Narrative* Encounter Date Complaint History Of Prese nt Illness AMD The 79 year old female presents for evaluation of AMD in the right and left eyes. Patient states vision stables. Patient Denies any new flashes, floaters, or discomfort. Patient does not use drops at home. [facility] Work Phone: [phone] Instructions* Date Instruction Additional Infor tabby Impression/Plan Related to Prese nce of intraocular [...] PVD ( posterior vitreous detachment), both eyes - Return in 2 months Related to Branch Retinal Vein Occlusion Branch Retinal Vein Occlusion OS Condition: stable. - Defer injection today. [facility] Call if any problems or changes. Related to Branch Retinal Vein Occlusion Macular Edema OS Con dition: established, stable. - See above. Related to Macular Edema Pseudophakia OU Related to Pseud ophakia Diabetes, Type 2, wi thout Retinopathy Condition: chronic. - Emphasized blood sugar control. Related to Diabetes, Type 2, without Retinopathy Diabetes, Type 2, wi thout Retinopathy Condition: [...] .5 OS Relat ed to Macular Edema Diabetes, Type 2, wi out Retinopathy - Encouraged compliance Related to Diabetes, [...] to Cataract, Nuclear Diabetes, Type 2, wi out Retinopathy - Patient understands the importance of [...] Related to Macular Edema Cataract, Nuclear OU Related to Cataract, Nuclear Diabetes, Type 2, wi thout Retinopathy Condition: established. - Emphasized blood sugar control. Related to Diabetes, Type 2, without Retinopathy Macular Edema OS Con dition: stable. - [...] Occlusion Branch Retinal Vein Occlusion OS Condition: persistent. - Significant macular edema is present. An intravitreal anti-VEGF injection was done without complication after discussion of risks and benefits. Patient understands that any visual problems should be reported to us promptly. Related to Branch Retinal Vein Occlusion - Return in 1 Related to Branc h Retinal Vein Occlusion Cataract, Nuclear OU Condition: established, worsening. Related to Cataract, Nuclear Macular Edema OS Con dition: persistent. - See above Related to Macular Edema [facility] Work Phone: [phone] 234-523601-14-2025 History of Present illness Narrative* Pam Ley APRN-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 - 11/28/2024 2:40 PM EST Images from the original note were not included. [address] [facility] [address] SUBJECTIVE: Patient ID: Cuca Goodwin is a 79 y.o. female. Chief Complaint Patient presents with tcm Oct, Shuana Presented to the ER on November 09, 2024 with complaints of generalized fatigue and weakness for several days. Troponin was noted to be elevated.Cardiology consulted. Echocardiogram results showed normal LV and RV systolic function. She did not report chest pain. Was on registered art therapist for durationof observation. Followed up outpatient with cardiology on 11/24/24. No new changes. She was noted to have UTI. Was treated with Rocephin and discharged with cephalexin. She has been seen multiple times over the past two months for recurrent UTIs at [place] and [facility] ER. Adult Protective Services was notified at one point for concern patient may be sitting in soiled brief for se veral days. Patient and daughter state this has not been occurring. Last seen in ER was on 11/19/24 at [facility]. Patient thought she had another UTI. No leukocyte esterase or nitrates in urine. Was diagnosed with beverly. Patient us Pure wick urinary system at night for urination. Daughter does admit today she does not change outer connecting tubing devices as indicated every week. States she changes every several weeks due to cost. Both patient and daughter states they were unaware not changing adapter weekly per machine ii trimmer recommendation may be contributing to reoccurring UTI's. Is Type 2 DM, has upcoming appointment with Dr. 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 The following portions of the patient's history were reviewed and updated as appropriate: allergies, current medications, past family history, past medical history, past social history, past surgicalhistory and problem list. Past Surgical History: Procedure Laterality Date BREAST BIOPSY Right 03/01/2023 ULT BIOPSY CATARACT EXTRACTION SECTION SECTION 03/14/1974 EGD N/A 10/17/2019 Performed by Sarai Bell DO at [facility] H-PERCUTANEOUS CORONARY INTERVENTION HYSTEROSCOPY DILATION CURETTAGE MYOSURE N/A 01/29/2021 Performed by Jv Briones MD at [facility] INJECTION BLOCK EPIDURAL CAUDAL STEROID N/A 08/14/2022 Performed by Arnulfo Gonzalez MD at [facility] INJECTION BLOCK EPIDURAL CAUDAL STEROID N/A 06/06/2021 Performed by Arnulfo Gonzalez MD at [facility] INJECTION BLOCK EPIDURAL CAUDAL STEROID N/A 04/25/2021 Performed by Arnulfo Gonzalez MD at [facility] INJECTION CAUDAL EPIDURAL WITH CATHETER, STEROID N/A 05/03/2020 Performed by Arnulfo Gonzalez MD at [facility] INJECTION CAUDAL EPIDURAL WITH CATHETER, STEROID N/A 11/24/2019 Performed by Arnulfo Gonzalez MD at [facility] INJECTION CAUDAL EPIDURAL WITH CATHETER, STEROID N/A 04/21/2019 Performed by Arnulfo Gonzalez MD at [facility] INJECTION MEDIAL BRANCH NERVE BLOCK Bilateral L 4/5, 5/1 Bilateral 08/18/2019 Performed by Arnulfo Gonzalez MD at [facility] INJECTION MEDIAL BRANCH NERVE BLOCK Bilateral L 4/5, 5/1 Bilateral 06/23/2019 Performed by Arnulfo Gonzalez MD at [facility] INJECTION STEROID EPI 1 WITH SEDATION Right L 4, 5 NR Right 03/17/2019 Performed by Arnulfo Gonzalez MD at [facility] INJECTION STEROID EPI 1 WITH SEDATION: right L45 nroot Right 08/15/2018 Performed by Arnulfo Gonzalez MD at [facility] LEFT L4, AND 5 NERVE ROOT INJECTION 2 OF 2 Left 07/22/2018 Performed by Arnulfo Gonzalez MD at [facility] LEFT L4, AND L5 NERVE ROOT 1 OF 2 Left 07/04/2018 Performed by Arnulfo Gonzalez MD at [facility] SHUNT INSERTION TONSILLECTOMY AGE 4 Transcutaneous aortic valve replacement/Transfemoral/Kwan N/A 08/17/2023 Performed by Chava Norris MD at [facility] Valvuloplasty aortic N/A 06/03/2023 Performed by Chava Norris MD at [facility] Past Medical History: Diagnosis Date Anemia Arthritis Asthma very mild, no inhaler use Cataract Dental disease Depression Diabetes mellitus ([facility] Diabetes mellitus type 2, controlled ([facility]) Encephalitis Foot fracture, left GERD (gastroesophageal reflux disease) Heart murmur HLD (hyperlipidemia) Hypertension Incontinence Injury of back Insulin dependent diabetes mellitus Kidney failure STAGE 4 Lumbar spondylolysis Murmur Obesity CHELSEA (obstructive sleep apnea) no machine Peptic ulceration Peripheral vascular disease ([facility]) Shortness of breath Stroke ([facility]) 02/27/2024 TIA (transient ischemic attack) Upper respiratory infection UTI (urinary tract infection) Visual impairment Wears dentures Immunization History Administered Date(s) Administered COVID-19, mRNA, LNP-S, PF, 30mcg/0.3mL Dose 01/07/2021, 02/04/2021 Influenza High Dose Preservative Free IM 08/27/2021 Influenza Vaccine, Quadrivalent, Adjuvanted 08/06/2022, 08/10/2023 Influenza, High-dose, Quadrivalent 08/30/2020 Influenza, Injectable, Quadrivalent 09/14/2019 Influenza, Injectable, quadrivalent (PF) 09/07/2017, 08/31/2018, 09/11/2019, 11/25/2020 Influenza, Trivalent, Adjuvanted 08/28/2024 Pneumococcal Conjugate 13-Valent 05/28/2021 Pneumococcal Polysaccharide 07/10/2015 [...] bruise/bleed easily. Psychiatric/Behavioral: Negative. PHYSICAL EXAMINATION: Vitals: 11/28/24 1442 BP: 140/58 BP Site: Left Arm BP Postition: Sitting BP CUFF SIZE: M (9-13 inches) Pulse: 79 Resp: 20 Temp: 36.9 C (98.4 F) TempSrc: Oral SpO2: 96% Weight: 89.6 kg (197 lb 9.6 oz) Height: 165.1 cm (5' 5 ) Patient noted to have elevated BMI and the following intervention(s) were applied: encouragement toexercise. Physical Exam Vitals and nursing note reviewed. [...] normal. ASSESSMENT/PLAN: Cuca was seen today for domingo cast. Diagnoses and all orders for this visit: Mixed diabetic hyperlipidemia associated with type 2 diabetes mellitus ([facility]) - atorvastatin (LIPITOR) 40 mg tablet; Take 1 tablet (40 mg total) by mouth nightly. Insomnia, unspecified type - traZODone (DESYREL) 100 mg tablet; TAKE 1 TABLET BY MOUTH EVERY DAY AT NIGHT Elevated troponin level Recurrent UTI Spoke with both patient and daughter at length today regarding frequent ER visits. Multiple trips to both [place] and [facility] ER. Primary complaints is generally for UTIs. Daughter states UTIs are better treated with IV antibiotics, therefore they use ER often. We did discuss Purewick urinary system today and cleanliness. Appliance does need to be changed weekly, not every several weeks. This could most likely be the cause for recurrent or un resolving UTI symptoms. Daughter states she extends changing system due to cost. We did discuss cleanliness of system. Last admission on November 09, 2024 for elevated troponin. Was evaluated in the hospital and outpatient by cardiology. ALL QUESTIONS ANSWERED Total time spent was 40 minutes: Preparing to see the patient (e.g., review of tests) Obtaining and/or reviewing separately obtained history Performing a medically appropriate examination and/or evaluation Counseling and educating the patient/family/caregiver Ordering medications, tests, or procedures Follow-up: Medicare wellness KAIDEN Werner 12/05/24 1315 documented in this encounterLakeHealth TriPoint Medical CenterNorwood Systems Brighton [id number] History of Present illness Narrative* Radha Troy MD - 11/24/2024 2:15 PM EST Cuca Huntbatsheva Date of visit: 11/24/2024 Date of : 1945 Age: 79 y.o. Patient Active Problem List Diagnosis GERD without esophagitis 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 mellitus ([facility] PVD (peripheral vascular disease) ([facility]) Anemia, chronic disease Lumbar back pain with radiculopathy affecting left lower extremity Disc displacement, lumbar Primary osteoarthritis of both knees Lumbar spondylosis Moderate episode of recurrent major depressive disorder ([facility]) GI bleed Mixed diabetic hyperlipidemia associated with type 2 diabetes mellitus ([facility]) Murmur, cardiac Left bundle branch block Obstructive sleep apnea syndrome Cerebral ventriculomegaly Edema of lower extremity Wears dentures Normal pressure hydrocephalus ([facility]) Coronary artery disease involving chipewwa coronary artery of chipewwa heart without angina pectoris Other abnormalities of gait and mobility Essential (primary) hypertension Acute cystitis without hematuria Spinal stenosis of lumbar region with neurogenic claudication SOB (shortness of breath) History of non-ST elevation myocardial infarction (NSTEMI) History of pneumonia Elevated d-dimer Stage 3b chronic kidney disease ([facility]) 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 breast in female, estrogen receptor positive ([facility]) Tremors of nervous system Closed nondisplaced fracture of left pubis with routine healing Acute kidney injury superimposed on CKD ([facility]) Nonrheumatic aortic valve stenosis S/p TAVR (transcatheter aortic valve replacement), 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 ([facility]) Sepsis without acute organ dysfunction ([facility]) Depression, unspecified Difficulty in walking, not elsewhere classified Generalized muscle weakness Hypertensive heart and chronic kidney disease with heart failure and stage 1 through stage 4 chronic kidney disease, or unspecified chronic kidney disease ([facility]) Insomnia, unspecified Limitation of activities due to disability Methicillin resistant Staphylococcus aureus infection as the cause of diseases classified elsewhere Constipation, unspecified Need for assistance with personal care Obesity, unspecified Pneumonia, unspecified organism Primary generalized (osteo)arthritis Unspecified osteoarthritis, unspecified site Type 2 diabetes mellitus with diabetic chronic kidney disease ([facility]) Unspecified asthma, uncomplicated Unspecified Escherichia coli (E. coli) as the cause of diseases classified elsewhere Urinary tract infectious disease Reactive airway disease with acute exacerbation Weakness Lactic acidosis Iron deficiency anemia secondary to inadequate dietary iron intake Hypomagnesemia Acute respiratory failure with hypoxia and hypercapnia ([facility]) COVID-19 virus infection Altered mental status, unspecified altered mental status type Type 2 diabetes mellitus with hypoglycemia without coma ([facility]) Acute cystitis Elevated troponin No Known Allergies Current Outpatient Medications Medication Sig Dispense Refill acetaminophen (TYLENOL) 500 mg tablet Take 2 tablets (1,000 mg total) by mouth every 6 (six) hours as needed for pain. aspirin 81 mg Take 1 tablet (81 mg total) by mouth in the morning. atorvastatin (LIPITOR) 40 mg tablet Take 1 tablet (40 mg total) by mouth nightly. 30 tablet 0 blood-glucose meter misc Monitor blood sugars four times daily and as needed 1 each 0 DEXCOM G7 ANIMAL HEALTH TECHNICIAN mis USE DIRECTED TO CONTINUOUSLY MONITOR BLOOD SUGAR DEXCOM G7 SENSOR device CHANGE SENSOR EVERY 10 DAYS, E11.65 gabapentin (NEURONTIN) 300 mg capsule Take 1 capsule (300 mg total) by mouth in the morning and 1 capsule (300 mg total) before bedtime. 180 capsule 1 insulin detemir U-100 (LEVEMIR) 100 unit/mL (3 mL) insulin pen Inject 15 Units under the skin nightly. 15 mL 12 insulin lispro (HumaLOG) 100 unit/mL insulin pen Inject 6 Units under the skin in the morning and 6Units at noon and 6 Units in the evening. lancets (Cidara Therapeuticstouch ultrasoft) misc Monitor blood sugars four times daily and as needed 200 each 0 metoprolol tartrate (LOPRESSOR) 25 mg tablet Take 0.5 tablets (12.5 mg total) by mouth in the morning and 0.5 tablets (12.5 mg total) before bedtime. 60 tablet 11 nystatin (MYCOSTATIN) powder Apply 1 Application topically in the morning and 1 Application at noonand 1 Application in the evening and 1 Application before bedtime. 60 g 1 ONETOUCH DELICA PLUS LANCET 33 gauge misc USE FOUR TIMES A DAY. ICD 10 E11.29 traZODone (DESYREL) 100 mg tablet TAKE 1 TABLET BY MOUTH EVERY DAY AT NIGHT 90 tablet 1 No current facility-administered medications for this visit. Chief Complaint Patient presents with Follow-up EST [facility] FU PMH ELEVATED TROPONIN History of Present Illness Patient returns for follow-up. She was recently in the hospital after presenting with weakness and some nonspecific symptoms. He was setting of this she was she had a mildly elevated troponin. Nothing was felt to represent acute coronary syndrome and she had a repeat echocardiogram showing normal LV function. She was going to have her CSF shunt checked. She was here with a daughter today. No chest pain or pressure. No breathing difficulties. No orthopnea or PND. No regular dizziness. Past Medical History: Diagnosis Date Anemia Arthritis Asthma very mild, no inhaler use Cataract Dental disease Depression Diabetes mellitus ([facility] Diabetes mellitus type 2, controlled ([facility]) Encephalitis Foot fracture, left GERD (gastroesophageal reflux disease) Heart murmur HLD (hyperlipidemia) Hypertension Incontinence Injury of back Insulin dependent diabetes mellitus Kidney failure STAGE 4 Lumbar spondylolysis Murmur Obesity CHELSEA (obstructive sleep apnea) no machine Peptic ulceration Peripheral vascular disease ([facility]) Shortness of breath Stroke ([facility]) 02/27/2024 TIA (transient ischemic attack) Upper respiratory infection UTI (urinary tract infection) Visual impairment Wears dentures No data recorded No data recorded No data recorded Past Surgical History: Procedure Laterality Date BREAST BIOPSY Right 03/01/2023 ULT BIOPSY CATARACT EXTRACTION SECTION SECTION 03/14/1974 EGD N/A 10/17/2019 Performed by Sarai Bell DO at [facility] H-PERCUTANEOUS CORONARY INTERVENTION HYSTEROSCOPY DILATION CURETTAGE MYOSURE N/A 01/29/2021 Performed by vJ Briones MD at [facility] INJECTION BLOCK EPIDURAL CAUDAL STEROID N/A 08/14/2022 Performed by Arnulfo Gonzalez MD at [facility] INJECTION BLOCK EPIDURAL CAUDAL STEROID N/A 06/06/2021 Performed by Arnulfo Gonzalez MD at [facility] INJECTION BLOCK EPIDURAL CAUDAL STEROID N/A 04/25/2021 Performed by Arnulfo Gonzalez MD at [facility] INJECTION CAUDAL EPIDURAL WITH CATHETER, STEROID N/A 05/03/2020 Performed by Arnulfo Gonzalez MD at [facility] INJECTION CAUDAL EPIDURAL WITH CATHETER, STEROID N/A 11/24/2019 Performed by Arnulfo Gonzalez MD at [facility] INJECTION CAUDAL EPIDURAL WITH CATHETER, STEROID N/A 04/21/2019 Performed by Arnulfo Gonzalez MD at [facility] MEDIAL BRANCH NERVE BLOCK Bilateral L 4/5, 5/1 Bilateral 08/18/2019 Performed by Arnulfo Gonzalez MD at [facility] MEDIAL BRANCH NERVE BLOCK Bilateral L 4/5, 5/1 Bilateral 06/23/2019 Performed by Arnulfo Gonzalez MD at [facility] STEROID EPI 1 WITH SEDATION Right L 4, 5 NR Right 03/17/2019 Performed by Arnulfo Gonzalez MD at [facility] STEROID EPI 1 WITH SEDATION: right L45 nroot Right 08/15/2018 Performed by Arnulfo Gonzalez MD at [facility] LEFT L4, AND 5 NERVE ROOT INJECTION 2 OF 2 Left 07/22/2018 Performed by Arnulfo Gonzalez MD at [facility] LEFT L4, AND L5 NERVE ROOT 1 OF 2 Left 07/04/2018 Performed by Arnulfo Gonzalez MD at [facility] SHUNT INSERTION TONSILLECTOMY AGE 4 Transcutaneous aortic valve replacement/Transfemoral/Kwan N/A 08/17/2023 Performed by Chava Norris MD at [facility] Valvuloplasty aortic N/A 06/03/2023 Performed by Chava Norris MD at [facility] Family History Problem [...] Social History Narrative Not on file Social Drivers of Health Financial Resource Strain: Medium Risk (10/28/2024) Overall Financial Resource Strain (CARDIA) Difficulty of Paying Living Expenses: Somewhat hard Food Insecurity: No Food Insecurity (11/24/2024) Hunger Screening Food Insecurity - Worry: Never True Food Insecurity - Inability: Never True Transportation Needs: No Transportation Needs (11/09/2024) PRAPARE - Transportation Lack of Transportation (Medical): No Lack of Transportation (Non-Medical): No Physical Activity: Inactive (10/28/2024) Exercise Vital Sign Days of Exercise per Week: 0 days Minutes of Exercise per Session: 0 min Stress: Stress Concern Present (10/28/2024) [employer] - Occupational Stress Questionnaire Feeling of Stress : To some extent Social Connections: Moderately Integrated (10/28/2024) Social Connection and Isolation Panel [NHANES] Frequency of Communication with Friends and Family: Never Frequency of Social Gatherings with Friends and Family: More than three times a week Attends Ep[employer] Services: More than 4 times per year Active Member of Clubs or Organizations: Yes Attends Club or Organization Meetings: More than 4 times per year Marital Status: Never Interpersonal Safety: Not At Risk (11/09/2024) Humiliation, Afraid, Rape, and Kick questionnaire Fear of Current or Ex-Partner: No Emotionally Abused: No Physically Abused: No Sexually Abused: No Housing Instability: Low Risk (11/09/2024) Housing Instability Housing Instability: No Review of Systems Review of Systems Constitutional: Negative. HENT: Negative. Eyes: Negative. Cardiovascular: Negative. Respiratory: Positive for cough. Endocrine: Negative. Hematologic/Lymphatic: Negative. Skin: Negative. Musculoskeletal: Negative. Gastrointestinal: Negative. Genitourinary: Negative. Neurological: Positive for loss of balance. Psychiatric/Behavioral: Negative. Allergic/Immunologic: Negative. Vascular: Negative. CARDIOVASCULAR: Please review HPI. Physical Examination General appearance: Alert, oriented and cooperative. In no acute distress. Skin: Warm and dry to touch. Head: Normocephalic, without obvious abnormality, atraumatic. Ears, Nose, Mouth, Throat: Throat clear without erythema or exudate. Dentition intact. Eyes: Conjunctivae unremarkable, EOM intact. Neck: Neck supple, trachea midline. Respiratory: Clear to auscultation bilaterally, no use of accessory muscles. Cardiovascular: RRR with normal S1 and S2 with no murmurs. Gastrointestinal: Soft, non-tender. Bowel sounds normal. Musculoskeletal: No peripheral edema. Neurologic: Oriented to time, person and place, affect appropriate. No focal/major motor defects noted. Psychiatric: Appropriate mood, memory and judgement. VITAL SIGNS: BP 130/70 (BP Site: Left Arm, BP Postition: Sitting) Pulse 51 Ht 165.1 cm (5' 5 ) Wt 88.5 kg (195 lb) LMP (LMP Unknown) SpO2 95% BMI 32.45 kg/m No orders of the defined types were placed in this encounter. Medications Discontinued During This Encounter Medication Reason sertraline (ZOLOFT) 100 mg tablet pantoprazole (PROTONIX) 40 mg EC tablet letrozole (FEMARA) 2.5 mg chemo tablet JANUVIA 50 mg tablet clopidogreL (PLAVIX) 75 mg tablet amLODIPine (NORVASC) 2.5 mg tablet IMPRESSIONS/PLAN 1. Nonrheumatic aortic valve stenosis 2. S/p TAVR (transcatheter aortic valve replacement), bioprosthetic 3. Coronary artery disease involving chipewwa coronary artery of chipewwa heart without angina pectoris Recent admit for weakness/fatique, nonspecific trop elevation Chronic LBBB CAD with hx of CÉSAR to LAD and RCA in 2022 S/p Evolut FX CoreValve (26 mm) TAVR 08/2023 Normal EF Hypertension Hyperlipidemia Type 2 diabetes mellitus PAD CKD Hypomagnesemia Metastatic breast cancer in remission Reassessment overall LV function. She was nothing suggestive of angina and has preserved LV function. At this point, I do not think she was to make any changes to her medical regimen. She was should continue on single antiplatelet therapy and statin therapy. We can reassess her yearly at this point and see her back sooner if any issues arise. TODAYS ORDERS No orders of the defined types were placed in this encounter. FOLLOW UP Return in about 1 year (around 11/24/2025). PCP: KAIDEN Werner Referring Physician: KAIDEN Werner [address] [place] [address] documented in this encounterLakeHealth TriPoint Medical CenterNorwood Systems Brighton [id number] Miscellaneous Notes* Telephone Encounter - Jazzmine Vega CMA - 11/23/2024 1:58 PM EST Called patient to remind them to bring their most current copy of their medication list with them to their appt. Patient verbalizes understanding. documented in this encounterLakeHealth TriPoint Medical CenterNorwood Systems Brighton [id number] Telephone encounter Note* Telephone Encounter - Jazzmine Vega CMA - 11/23/2024 1:58 PM EST Called patient to remind them to bring their most current copy of their medication list with them to their appt. Patient verbalizes understanding. [facility] AM [id number] Miscellaneous Notes* Telephone Encounter - Yani Martinez - 11/13/2024 5:24 PM EST ----- Message ----- From: Irina Brunner MD Sent: 11/10/2024 7:37 AM EST To: Ppc General Mailing Manager Subject: Post discharge follow-up Patient is seen at [facility]. Starting off. Need follow-up as outpatient within 3 weeks fromdischarge. Thank you * Telephone Encounter - Yani Martinez - 11/13/2024 5:24 PM EST SCHEDULED 11/24/2024 [facility] in [facility]Mer[facility]12[facility] Telephone encounter Note* Telephone Encounter - Yani Martinez - 11/13/2024 5:24 PM EST ----- Message ----- From: Irina Brunner MD Sent: 11/10/2024 7:37 AM EST To: Ppc General Mailing Manager Subject: Post discharge follow-up Patient is seen at [facility]. Starting off. Need follow-up as outpatient within 3 weeks fromdischarge. [facility] you [facility]12-30-[facility]24 Telephone encounter Note* Telephone Encounter - Yani Martinez - 11/13/2024 5:24 PM EST SCHEDULED 11/24/2024 [facility]12-27-2024 Miscellaneous Notes* Telephone Encounter - Maddie Givens RN - 11/10/2024 8:54 AM EST Aubrey Medina called ODALIS Perkins, to ask if patient discharged with home care, will PCP cover? documented in this [facility]Mer[facility]12[facility]24 Telephone encounter Note* Telephone Encounter - Maddie Givens RN - 11/10/2024 8:54 AM EST Aubrey Medina called ODALIS Perkins, to ask if patient discharged with home care, will PCP cover? [facility] Work Phone: [phone] Miscellaneous Notes* Telephone Encounter - Alice Morrison CMA - 09/06/2024 3:15 PM EDT [facility] called to see if you could send in nystatin ( 60g bottle) for this pt , pt has excoriated abdomen folds ,flacky red fungal odor , she did educate pt , also stated the right side is worse than the left side * Telephone Encounter - KAIDEN Werner - 09/06/2024 3:15 PM EDT done documented in this encounterMer[facility]10-23-2024 Telephone encounter Note* Telephone Encounter - Alice Morrison CMA - 09/06/2024 3:15 PM EDT [facility] called to see if you could send in nystatin ( 60g bottle) for this pt , pt has excoriated abdomen folds ,flacky red fungal odor , she did educate pt , also stated the right side is worse than the left side [facility] Telephone encounter Note* Telephone Encounter - KAIDEN Werner - 09/06/2024 3:15 PM EDT done PatientKeeper10-14-2024 History of Present illness Narrative* KAIDEN Werner - 08/28/2024 8:00 AM EDT Transition of Care (*required) Additional Questions/Concerns Requiring [...] Discharge Specialty: Endocrine Name of Discharging Facility: [facility] Date of Facility Discharge: Admitted: 08/23/24 Discharged: 08/24/24 Date of Interactive Contact and Name of Director Institution: 08/25/24 Spoke with patient's daughterIleana Medication Review Completed: Yes CHANGE how you take: insulin detemir U-100 (LEVEMIR) Medication Reconciliation Questions/Concerns: *Follow Up Appointments with Providers: Primary: KAIDEN Werner: 08/28/24 Specialty: Endocrinology (Christiano): TBVicki Review of [...] reviewed and reconciled with the most recent facilitydischarge document. Discharged from [facility] on 08-24-24 Patient is accompanied by her daughter today. States daughter administered her insulin. Patient forgot she already received and she administered insulin as well. Subsequently, blood sugar dropped and developed altered mental status. Daughter states blood sugar did not register as it was very low. [facility]. Type 2 DM is managed by endocrine, Zainab Hernandez. The following portions of the patient's history were reviewed and updated as appropriate: allergies, current medications, past family history, past medical history, past social history, past surgicalhistory, problem list, and medication reconciliation was completed including current medication andpost discharge medication. Review of Systems Constitutional: Negative [...] KAIDEN Werner 08/28/24 0902 documented in this [facility]10-02[facility]2024 Miscellaneous Notes* Telephone Encounter - Deja Mojica CMA - 08/16/2024 4:11 PM EDT Do you still need a TCM on this patient? * Telephone Encounter - KAIDEN Werner - 08/16/2024 4:11 PM EDT She currently has COVID-19. I am going to say not at this time documented in this [facility]2024 Telephone encounter Note* Telephone Encounter - Deja Mojica CMA - 08/16/2024 4:11 PM EDT Do you still need a TCM on this patient? [facility] Telephone encounter Note* Telephone Encounter - KAIDEN Werner - 08/16/2024 4:11 PM EDT She currently has COVID-19. I am going to say not at this time [facility]10-02-[facility]24 Miscellaneous Notes* Telephone Encounter - Delisa oTrres RN - 08/16/2024 10:13 AM EDT Transition of Care (*required) *Additional Questions/Concerns Requiring PCP Follow-Up: -Patient does not have CELI appointment scheduled This documentation is being used for Transition of Care purposes: Yes Goal: Patient will demonstrate a safe transition from hospital to home Diagnosis on Discharge: DISCHARGE DIAGNOSES Principal Problem: Acute respiratory failure with hypoxia and hypercapnia ([facility]) Active Problems: PVD (peripheral vascular disease) ([facility]) Mixed diabetic hyperlipidemia associated with type 2 diabetes mellitus ([facility]) Obstructive sleep apnea syndrome Essential (primary) hypertension Acute cystitis without hematuria Stage 3b chronic kidney disease ([facility]) Sepsis without acute organ dysfunction ([facility]) Iron deficiency anemia secondary to inadequate dietary iron intake COVID-19 virus infection Discharge Specialty: Other *Name of Discharging Facility: [facility] Date of Facility Discharge: Admission 08/12/24 Discharge 08/14/24 Date of Interactive Contact and Name of Director Institution: 08/16/24 10:22 am Spoke to patients daughter [...] Other Services Utilized/Needed by the Patient: NA * Telephone Encounter - Deja Mojica CMA - 08/16/2024 10:13 AM EDT Patient currently has COVID so she will pass on this one. documented in this [facility]Mer[facility]10-02-2024 Telephone encounter Note* Telephone Encounter - Delisa Torres RN - 08/16/2024 10:13 AM EDT Transition of Care (*required) *Additional [...] Discharge Specialty: Other *Name of Discharging Facility: [facility] Date of Facility Discharge: Admission 08/12/24 Discharge 08/14/24 Date of Interactive Contact and Name of Director Institution: 08/16/24 10:22 am Spoke to patients molina [...] Other Services Utilized/Needed by the Patient: NA PatientKeeper10-02-2024 Telephone encounter Note* Telephone Encounter - Deja Mojica CMA - 08/16/2024 10:13 AM EDT Patient currently has COVID so she will pass on this one. PatientKeeper08-07-2024 History of Present illness Narrative* KAIDEN Werner - 06/21/2024 2:40 PM EDT Subjective Patient ID: Cuca Goodwin is a 79 y.o. female. The patient is here today for discharge follow up from hospital. Transition of Care Med Rec completed? Yes Discharged medications: Medications have been reviewed and reconciled with the most recent facilitydischarge document. Transition of Care Additional Questions/Concerns Requiring PCP Follow-Up: Unable to reach patient This documentation is being used for Transition of Care purposes: Yes Goal: Patient will demonstrate a safe transition from hospital to home Diagnosis on Discharge: Hypoglycemia Reactive airway disease with acute exacerbation Discharge Specialty: Pulmonology Name of Discharging Facility: [facility] Date of Facility Discharge: Admitted; 06/13/24 Discharged: 06/15/24 Date of Interactive Contact and Name of Director Institution: 06/16/24 @ 943 am: no answer, left message to return call 06/16/24 @ 151 pm: no answer Medication Review Completed: Pending provider review START taking: albuterol (PROVENTIL,VENTOLIN) doxycycline (MONODOX) fluticasone propion-salmeteroL (ADVAIR) guaiFENesin (MUCINEX) predniSONE (DELTASONE) STOP taking: hydroCHLOROthiazide 25 mg tablet (HYDRODIURIL) Medication Reconciliation Questions/Concerns: Follow Up Appointments with Providers: Primary: Pam Ley, 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: 06/21/24 Review of Pending Lab/Diagnostic Tests and Plan for Completion: Assessment and Support of Treatment Regimen Adherence and Medication Management: Education Provided by ACN to Support Self-Management, Independent Living and ADLs: Communication with Home Health Agencies and Other Services Utilized/Needed by the Patient: [facility] Presents today for transitional care follow up. Is accompanied by her daughter today. Was discharged from [facility] on 2024. Onset of initial symptoms started on 06/14/24. EMS was called out to the house and found the patientwith a blood sugar of 40. They provided D50 and glucose increased to greater than 120. During that time however she expressed shortness of breath and was coughing throughout the entirety of her stay with EMS. It was agreed that she would be transported to the hospital as she also seemed less alert than normal. She has had previous similar presentations of hypoglycemia but not with the altered mental status. Per daughter, during hospital stay she was diagnosed with pneumonia. Received IV antibiotics and was discharged with doxycycline. She has finished both prednisone and doxycycline. Today, she relates she feels approximately 75% but feels somewhat fatigued still. Follow-up Pertinent negatives include no chest pain, chills or fever. The following portions of the patient's history were reviewed and updated as appropriate: allergies, current medications, past family history, past medical history, past social history, past surgicalhistory, problem list, and medication reconciliation was completed including current medication andpost discharge medication. Review of Systems Constitutional: Negative [...] Hematological: Does not bruise/bleed easily. Psychiatric/Behavioral: Negative. Vitals: 06/21/24 1448 BP: 110/70 Pulse: 66 Temp: 36.5 C (97.7 F) SpO2: 97% Objective Physical Exam Vitals and nursing note [...] Normal rate and regular rhythm. Heart sounds: Murmur heard. No friction rub. No gallop. Pulmonary: [...] normal. Assessment/Plan Cuca was seen today for follow-up. Diagnoses and all orders for this visit: Hypoglycemia Mild intermittent reactive airway disease with acute exacerbation Currently has [facility] home care in the home. Receiving PT for strengthen. Follow up July KAIDEN Werner 06/28/24 1451 documented in this [facility]Mer[facility]06-19-2024 History of Present illness Narrative* KAIDEN Werner - 05/03/2024 2:40 PM EDT Subjective Patient ID: Cuca Goodiwn is a 78 y.o. female. The patient is here today for discharge follow up from post acute facility. Transition of Care Med Rec completed? Yes Discharged medications: Medications have been reviewed and reconciled with the most recent facilitydischarge document. Went to [place] [facility] on April 06, 2024 after one day of not feeling well. Daughter called EMS. Was noted to have oxygen sats in the 80's. Subsequently was admitted for pneumonia bilateral lower lobes. After discharge, she recovered at [facility]. Was discharged on Sunday, April 28, 2024.She returned to home, resides with daughter and grandson. No medication changes. Today, she feels she is almost at her normal baseline. Does feel slightly weaker than prior to admission. Uses rolling walker for ambulation. She is scheduled for home care with PT / OT tomorrow. [facility]. The following portions of the patient's history were reviewed and updated as appropriate: allergies, current medications, past family history, past medical history, past social history, past surgicalhistory, problem list, and medication reconciliation was completed including current medication andpost discharge medication. Review of Systems Constitutional: Negative [...] Hematological: Does not bruise/bleed easily. Psychiatric/Behavioral: Negative. Vitals: 05/03/24 1432 BP: 130/70 Pulse: 71 Resp: 18 Temp: 37.2 C (99 F) SpO2: 94% Objective Physical Exam Vitals and nursing note [...] normal. Assessment/Plan Cuca was seen today for discharge / bethezda. Diagnoses and all orders for this visit: Pneumonia due to other specified organism Discharged to home, prior setting with daughter and grandson. She offers no complaints. Feels she has returned back to her normal baseline, states just slightly weaker. Will be having [facility] starting tomorrow; home care, PT / OT Lungs clear through out. Oxygen saturation at room air 94% today. Follow up July KAIDEN Werner 05/03/24 1521 documented in this encounterMer[facility] Hospital04-25-2024 History of Present illness Narrative* Rosario Strong RN - 03/09/2024 3:38 PM EDT Patient is here for follow up with Dr. Muñoz. Orders received for B/l mammogram is due. F/u in 6 months, CBC, CMP. Patient given calendar, verbalized understanding of future appointments. documented in this encounterMercy [facility] Hospital04-25-2024 History of Present illness Narrative* Casimiro Muñoz MD - 03/09/2024 3:15 PM EDT Images from the original note were not included. [facility] 03/09/24 Cuca Goodwin is a 78 y.o. year old female seen today in the oncology clinic. Chief Complaint Patient presents with Follow-up History of Present Illness: Mrs. Goodwin is a 78 y.o. female with history of aortic valve stenosis, she had PCI earlier in the year at [facility] for coronary disease. during the cardiac workup she was found to havea right breast lesion. Ultrasound showed in the 10:00 position right breast was performed by the technologist. Just beneath the skin there is a hypoechoic irregular mass that is taller than wide measuring 1.4 x 1.4 x 1.5 cm. This mass has spiculated margins and internal blood flow. Biopsy of the lesion shows invasive mammary carcinoma, grade 2, ER strongly positive IL moderately positive and [id number]. There was also suspicious spine lesion, MRI showed extensive bony lesions. Femara palliative intent 03/2023. Interval history: The patient is doing well on Femara treatment. She underwent TAVR surgery s and recovered very well. Currently she has not taking any blood thinner. She is on treatment daily with Femara, very compliant with according to her daughter. She denies any significant musculoskeletal discomfort. Back painseems to be stable. No weight loss. No new breast lesions. Past Medical History: Diagnosis Date Anemia Arthritis Asthma very mild, no inhaler use Cataract Dental disease Depression Diabetes mellitus ([facility] Diabetes mellitus type 2, controlled ([facility]) Encephalitis Foot fracture, left GERD (gastroesophageal reflux disease) Heart murmur HLD (hyperlipidemia) Hypertension Incontinence Injury of back Insulin dependent diabetes mellitus Kidney failure STAGE 4 Lumbar spondylolysis Murmur Obesity CHELSEA (obstructive sleep apnea) no machine Peptic ulceration Peripheral vascular disease ([facility]) Shortness of breath Stroke ([facility]) 02/27/2024 TIA (transient ischemic attack) Upper respiratory infection UTI (urinary tract infection) Visual impairment Wears dentures Past Surgical History: Procedure Laterality Date BREAST BIOPSY Right 03/01/2023 ULT BIOPSY CATARACT EXTRACTION SECTION SECTION 03/14/1974 EGD N/A 10/17/2019 Performed by Sarai Bell DO at [facility] HYSTEROSCOPY DILATION CURETTAGE MYOSURE N/A 01/29/2021 Performed by Jv Briones MD at [facility] INJECTION BLOCK EPIDURAL CAUDAL STEROID N/A 08/14/2022 Performed by Arnulfo Gonzalez MD at [facility] INJECTION BLOCK EPIDURAL CAUDAL STEROID N/A 06/06/2021 Performed by Arnulfo Gonzalez MD at [facility] INJECTION BLOCK EPIDURAL CAUDAL STEROID N/A 04/25/2021 Performed by Arnulfo Gonzalez MD at [facility] INJECTION CAUDAL EPIDURAL WITH CATHETER, STEROID N/A 05/03/2020 Performed by Arnulfo Gonzalez MD at [facility] INJECTION CAUDAL EPIDURAL WITH CATHETER, STEROID N/A 11/24/2019 Performed by Arnulfo Gonzalez MD at [facility] INJECTION CAUDAL EPIDURAL WITH CATHETER, STEROID N/A 04/21/2019 Performed by Arnulfo Gonzalez MD at [facility] INJECTION MEDIAL BRANCH NERVE BLOCK Bilateral L 4/5, 5/1 Bilateral 08/18/2019 Performed by Arnulfo Gonzalez MD at [facility] INJECTION MEDIAL BRANCH NERVE BLOCK Bilateral L 4/5, 5/1 Bilateral 06/23/2019 Performed by Arnulfo Gonzalez MD at [facility] INJECTION STEROID EPI 1 WITH SEDATION Right L 4, 5 NR Right 03/17/2019 Performed by Arnulfo Gonzalez MD at [facility] INJECTION STEROID EPI 1 WITH SEDATION: right L45 nroot Right 08/15/2018 Performed by Arnulfo Gonzalez MD at [facility] LEFT L4, AND 5 NERVE ROOT INJECTION 2 OF 2 Left 07/22/2018 Performed by Arnulfo Gonzalez MD at [facility] LEFT L4, AND L5 NERVE ROOT 1 OF 2 Left 07/04/2018 Performed by Arnulfo Gonzalez MD at [facility] PERCUTANEOUS CORONARY INTERVENTION SHUNT INSERTION TONSILLECTOMY AGE 4 Transcutaneous aortic valve replacement/Transfemoral/Kwan N/A 08/17/2023 Performed by Chava Norris MD at [facility] Valvuloplasty aortic N/A 06/03/2023 Performed by Chava Norris MD at [facility]ATH [facility] Family History Problem [...] Other Topics Concern Caffeine Use No Social Determinants of Health Financial Resource Strain: Low Risk (08/31/2023) Overall Financial Resource Strain (CARDIA) Difficulty of Paying Living Expenses: Not hard at all Food Insecurity: No Food Insecurity (03/02/2024) Hunger Screening Food Insecurity - Worry: Never True Food Insecurity - Inability: Never True Transportation Needs: No Transportation Needs (08/31/2023) PRAPARE - Transportation Lack of Transportation (Medical): No Lack of Transportation (Non-Medical): No Physical Activity: Inactive (10/05/2022) Exercise Vital Sign Days of Exercise per Week: 0 days Minutes of Exercise per Session: 0 min Stress: No Stress Concern Present (10/05/2022) [employer] - Occupational Stress Questionnaire Feeling of Stress : Not at all Social Connections: Moderately Isolated (10/05/2022) Social Connection and Isolation Panel [NHANES] Frequency of Communication with Friends and Family: Never Frequency of Social Gatherings with Friends and Family: Never Attends Ep[employer] Services: More than 4 times per year Active Member of Clubs or Organizations: Yes Attends Club or Organization Meetings: More than 4 times per year Marital Status: Never Received from [facility] [place] Safety & Environment Housing Instability: Low Risk (08/31/2023) Housing Instability Housing Instability: No No Known Allergies Medication List Accurate as of March 09, 2024 4:45 PM. If you have any questions, ask [...] nephropathy, without long-term current use of insulin ([facility]) Signed by: KAIDEN Santana Monitor blood sugars four times daily and as needed clopidogreL 75 mg tablet Refills: 0 Dose: 75 mg Commonly known as: PLAVIX gabapentin 300 mg capsule Quantity: 180 capsule Refills: 1 Doctor's comments: 90 Day Supply with one refill For diagnoses: 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 mellitus ([facility]) Dose: 300 mg Signed by: KAIDEN Santana 300 mg, oral, 2 times daily Commonly known as: NEURONTIN hydroCHLOROthiazide 25 mg tablet Refills: 0 Dose: 25 mg Commonly known as: HYDRODIURIL * lancets misc Quantity: 200 each Refills: 0 Doctor's comments: Whatever covered by insurance For diagnoses: Controlled type 2 diabetes mellitus with diabetic nephropathy, without long-term current use of insulin ([facility]) Signed by: KAIDEN Santana Monitor blood sugars four times daily and as needed Commonly known as: onetouch ultrasoft * ONETOUCH DELICA PLUS LANCET 33 gauge misc Refills: 0 Generic drug: lancets letrozole 2.5 mg chemo tablet Quantity: 90 tablet Refills: 3 For diagnoses: 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 Casimiro Muñoz MD TAKE 1 TABLET BY MOUTH EVERY DAY Commonly known as: FEMARA metoprolol succinate XL 25 mg 24 hr tablet Quantity: 90 tablet Refills: 2 For diagnoses: Essential hypertension Dose: 25 mg Signed by: KAIDEN Santana 25 mg, oral, Daily Commonly known as: TOPROL XL sertraline 100 mg tablet Quantity: 90 tablet Refills: 2 For diagnoses: Major depressive disorder in partial remission, unspecified whether recurrent ([facility]) Dose: 100 mg Signed by: KAIDEN Santana 100 mg, oral, Daily Commonly known as: ZOLOFT traZODone 100 mg tablet Quantity: 90 tablet [...] appearing, in no acute distress. Vitals: BP 130/60 Pulse 104 Temp 36.4 C (97.6 F) (Oral) Resp 24 Ht 165.1 cm (5' 5 ) Wt 90.2 kg (198 lb 12.8 oz) LMP (LMP Unknown) SpO2 97% BMI 33.08 kg/m Body mass index is 33.08 kg/m. Eyes: No icterus, no conjuctival erythema ENT: Pharyngeal mucosa was moist without exudate and inflammation or ulcerations. Tongue was midline and appeared normal.Gums were unremarkable. Lymph nodes: No palpable adenopathy Neck: Supple. There were no masses, tenderness. Trachea was midline. Respiratory: Respirations were non-labored. Lungs were clear to auscultation. There was no dullnessto percussion. Cardiac: Regular rate and rhythm, S1 [...] placed within the mass and multiple core b iopsies were obtained. The samples are placed in formalin. A biopsy clip was then placed within themass at the conclusion of the procedure. Manual [...] mammogram was obtained in a separate room andviewed on a dedicated work station. This was [...] list: Problem List Items Addressed This Visit Musculoskeletal and Integument Metastasis to bone (CMS-HCC) Other 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 breast in female, estrogen receptor positive (CMS-HCC) - Primary Impression: Right-sided breast cancer, ERPR positive HER2 [...] patient underwent a successful aortic balloon valvuloplasty The patient's PET scan February 2024 reviewed, there is no scintigraphic avid uptake in her bones. No evidence of distant metastasis. Continue Femara for now. The patient is due for her bilateral mammogram. Labs before appt: CBC, CMP, CA 15-3, CA 27.29. Follow-up in 6 months. Casimiro Muñoz MD Please note that portions of this note were generated using voice recognition M*Mebel[employer] dictation software. Although every effort was made to ensure the accuracy of this automated director broadcast, some errors in director broadcast may have occurred. CC: Patient Care Team: KAIDEN Werner as PCP - General (Family Medicine) John Quiles MD (Nephrology) KAIDEN Hsu as Nurse Practitioner (Pulmonary Medicine) Madison Ye MD as Referring Physician (Endocrinology, Diabetes & Metabolism) Casimiro Muñoz MD as Consulting Physician (Hematology) PCP:Pam Ley Referring MD: Pam Ley, AP* documented in this encounterLakeHealth TriPoint Medical CenterNorwood Systems Brighton [id number] Instructions* Patient Instructions* Casimiro Muñoz MD - 03/09/2024 3:15 PM EDT B/l mammogram is due. F/u in 6 months, CBC, CMP. documented in this encounterLakeHealth TriPoint Medical CenterNorwood Systems Brighton [id number] Miscellaneous Notes* Telephone Encounter - Maria Del Carmen Holland RN - 02/28/2024 3:24 PM EDT ----- Message from RONNA Melissa sent at 02/28/2024 3:07 PM EDT ----- Regarding: FW: Geetha Joyce! I just got called again from [place]. They were contacted by [facility] and patient does NOT have an order for MRI Brain. She only has the order for CT brain. So I placed a STAT MRI Brain w and wo order for patient to get imaging done at [facility] in next 1-2 weeks. I'm not sure the best way to get this order recognized by [facility] system. Do we need to fax it? [facility]? Just let mw know if I need to do something different. TIA!!! ----- Message ----- From: RONNA Melissa Sent: 02/28/2024 1:29 PM EDT To: [facility] Stroke Scheduling; [facility] Stroke Mailing Manager Subject: [place] FU We suspect a small brainstem stroke on this lady but unfortunately she cannot complete her MRI at [place]. Cuca has a SENIOR TAX ANALYST shunt that was placed at [facility] in 2019 and is scheduled for a FU appt at [facility] on 03/19/24. Dr. Martell advised the followin. Check P2Y12- I already placed an order in [facility]. This can be done when she goes to [facility]. 2. Expedite MRI Brain. This was scheduled to be done at [facility] on 03/19. Dr. Martell would like it done in the next 1-2 weeks. We can revise the established order if needed. Cuca will need FU in Stroke clinic in 4-6 weeks. (Likely after her 03/19/25 appt). She can see Jayshree Oliver or fellow. Note some of her records are in [facility]. We will need to decide about doubling dose of Plavix vs transition to brilinta pending MRI and P2Y12 testing. Thanks! * Telephone Encounter - Maria Del Carmen Holland RN - 02/28/2024 3:24 PM EDT Faxed MRI brain order to [facility]. Will check tomorrow that they received it. Also faxed order for P2Y12 to [facility] * Telephone Encounter - Kristy Contreras - 02/28/2024 3:24 PM EDT Received call today 02/29/24 9:10 from [facility] Radiology who stated that patient's MR Brain with and without contrast was denied and will need a prior auth before they can schedule for patient. * Telephone Encounter - Maria Del Carmen Holland RN - 02/28/2024 3:24 PM EDT Sent hospital note to [place] to use for prior authorization. * Telephone Encounter - Maria Del Carmen Holland RN - 02/28/2024 3:24 PM EDT Sched for 03/16 * Telephone Encounter - Maria Del Carmen Holland RN - 02/28/2024 3:24 PM EDT MR moved to 04/19 * Telephone Encounter - Teena Quinonez CMA - 02/28/2024 3:24 PM EDT Called [facility] and caller stated Pt is scheduled for Wednesday 04/25 for MRI. * Telephone Encounter - Teena Quinonez CMA - 02/28/2024 3:24 PM EDT Called [facility] to retrieve imaging. Caller stated it is rescheduled for 05/23/24. Postponed message till the date above. * Telephone Encounter - Alayna Martel RN - 02/28/2024 3:24 PM EDT Call we have imaging pushed to PACs for review, also can we call patient and remind or ask if she had the P2Y12 lab that needs to be drawn? Order was already faxed over to [place] lab. * Telephone Encounter - Teena Quinonez CMA - 02/28/2024 3:24 PM EDT Called [facility] for MRI to be pushed via PACS. Should be available shortly. Called Pt's daughter per pending lab order. Daughter stated they were unaware of this and will get it completed. * Telephone Encounter - Kristy Hernandez - 02/28/2024 3:24 PM EDT Spoke with Ileana and made an appt documented in [facility] Telephone encounter Note* Telephone Encounter - Maria Del Carmen Holland RN - 02/28/2024 3:24 PM EDT ----- Message from RONNA Melissa sent at 02/28/2024 3:07 PM EDT ----- Regarding: FW: Geetha BAR Turnerge! I just got called again from [place]. They were contacted by [facility] and patient does NOT have an order for MRI Brain. She only has the order for CT brain. So I placed a STAT MRI Brain w and wo order for patient to get imaging done at [facility] in next 1-2 weeks. I'm not sure the best way to get this order recognized by [facility] system. Do we need to fax it? Can they see the order in [employer]'s system? Just let mw know if I need to do something different. TIA!!! ----- Message ----- From: RONNA Melissa Sent: 02/28/2024 1:29 PM EDT To: [facility] Stroke Scheduling; [facility] Stroke Mailing Manager Subject: Geetha DINERO We suspect a small brainstem stroke on this lady but unfortunately she cannot complete her MRI at [place]. Cuca has a SENIOR TAX ANALYST shunt that was placed at [facility] in 2019 and is scheduled for a FU appt at [facility] on 03/19/24. Dr. Martell advised the followin. Check P2Y12- I already placed an order in [facility]. This can be done when she goes to [facility]. 2. Expedite MRI Brain. This was scheduled to be done at [facility] on 03/19. Dr. Martell would like it done in the next 1-2 weeks. We can revise the established order if needed. Cuca will need FU in Stroke clinic in 4-6 weeks. (Likely after her 03/19/25 appt). She can see Jayshree Oliver or fellow. Note some of her records are in [facility]. We will need to decide about doubling dose of Plavix vs transition to brilinta pending MRI and P2Y12 testing. Thanks! [facility]04-15-2024 Telephone encounter Note* Telephone Encounter - Maria Del Carmen Holland RN - 02/28/2024 3:24 PM EDT Faxed MRI brain order to [facility]. Will check tomorrow that they received it. Also faxed order for P2Y12 to [place] [email or web address] Telephone encounter Note* Telephone Encounter - Kristy Contreras - 02/28/2024 3:24 PM EDT Received call today 02/29/24 9:10 from [facility] Radiology who stated that patient's MR Brain with and without contrast was denied and will need a prior auth before they can schedule for patient. [facility]04-15-2024 Telephone encounter Note* Telephone Encounter - Maria Del Carmen Holland RN - 02/28/2024 3:24 PM EDT Sent hospital note to [place] to use for prior authorization. [facility] Telephone encounter Note* Telephone Encounter - Maria Del Carmen Holland RN - 02/28/2024 3:24 PM EDT Sched for 03/16 [facility]04-15-[facility] Telephone encounter Note* Telephone Encounter - Maria Del Carmen Holland RN - 02/28/2024 3:24 PM EDT MR moved to 04/19 [facility] Telephone encounter Note* Telephone Encounter - Teena Quinonez CMA - 02/28/2024 3:24 PM EDT Called [facility] and caller stated Pt is scheduled for Wednesday 04/25 for MRI. [facility]04-[facility] Telephone encounter Note* Telephone Encounter - Teena Quinonez CMA - 02/28/2024 3:24 PM EDT Called [facility] to retrieve imaging. Caller stated it is rescheduled for 05/23/24. Postponed message till the date above. [facility]04-15-[facility] Telephone encounter Note* Telephone Encounter - Alayna Martel RN - 02/28/2024 3:24 PM EDT Call we have imaging pushed to PACs for review, also can we call patient and remind or ask if she had the P2Y12 lab that needs to be drawn? Order was already faxed over to [place] lab. [facility] Telephone encounter Note* Telephone Encounter - Teena Quinonez CMA - 02/28/2024 3:24 PM EDT Called [facility] for MRI to be pushed via PACS. Should be available shortly. Called Pt's daughter per pending lab order. Daughter stated they were unaware of this and will get it completed. [facility]04-15-2024 Telephone encounter Note* Telephone Encounter - Kristy Hernandez - 02/28/2024 3:24 PM EDT Spoke with Ileana and made an appt [facility]03-27-2024 History of Present illness Narrative* KAIDEN Werner - 02/09/2024 1:00 PM EDT Images from the original note were not included. [address] [facility] [address] SUBJECTIVE: Patient ID: Cuca Goodwin is a 78 y.o. female. Chief Complaint Patient presents with incontinence Accompanied by daughter today Urine is cloudy, increased incontinence. Concerns for reoccurrence of UTI. [facility]. Uses Purewick devices during hours of sleep for urinary incontinence Urinary Tract Infection This is a new problem. The current episode started in the past 7 days. The problem has been gradually worsening. The quality of the pain is described as aching. The pain is at a severity of 3/10. Thepain is mild. There has been no fever. She is Not sexually active. There is No history of pyelonephritis. Associated symptoms include frequency, hesitancy and urgency. Pertinent negatives include no chills. She has tried increased fluids for the symptoms. Her past medical history is significant forrecurrent UTIs. The following portions of the patient's history were reviewed and updated as appropriate: allergies, current medications, past family history, past medical history, past social history, past surgicalhistory and problem list. Past Surgical History: Procedure Laterality Date BREAST BIOPSY Right 03/01/2023 ULT BIOPSY CATARACT EXTRACTION SECTION SECTION 03/14/1974 EGD N/A 10/17/2019 Performed by Sarai Bell DO at [facility] HYSTEROSCOPY DILATION CURETTAGE MYOSURE N/A 01/29/2021 Performed by Jv Briones MD at [facility] INJECTION BLOCK EPIDURAL CAUDAL STEROID N/A 08/14/2022 Performed by Arnulfo Gonzalez MD at [facility] INJECTION BLOCK EPIDURAL CAUDAL STEROID N/A 06/06/2021 Performed by Arnulfo Gonzalez MD at [facility] INJECTION BLOCK EPIDURAL CAUDAL STEROID N/A 04/25/2021 Performed by Arnulfo Gonzalez MD at [facility] INJECTION CAUDAL EPIDURAL WITH CATHETER, STEROID N/A 05/03/2020 Performed by Arnulfo Gonzalez MD at [facility] INJECTION CAUDAL EPIDURAL WITH CATHETER, STEROID N/A 11/24/2019 Performed by Arnulfo Gonzalez MD at [facility] INJECTION CAUDAL EPIDURAL WITH CATHETER, STEROID N/A 04/21/2019 Performed by Arnulfo Gonzalez MD at [facility] MEDIAL BRANCH NERVE BLOCK Bilateral L 4/5, 5/1 Bilateral 08/18/2019 Performed by Arnulfo Gonzalez MD at [facility] INJECTION MEDIAL BRANCH NERVE BLOCK Bilateral L 4/5, 5/1 Bilateral 06/23/2019 Performed by Arnulfo Gonzalez MD at [facility] INJECTION STEROID EPI 1 WITH SEDATION Right L 4, 5 NR Right 03/17/2019 Performed by Arnulfo Gonzalez MD at [facility] INJECTION STEROID EPI 1 WITH SEDATION: right L45 nroot Right 08/15/2018 Performed by Arnulfo Gonzalez MD at [facility] LEFT L4, AND 5 NERVE ROOT INJECTION 2 OF 2 Left 07/22/2018 Performed by Arnulfo Gonzalez MD at [facility] LEFT L4, AND L5 NERVE ROOT 1 OF 2 Left 07/04/2018 Performed by Arnulfo Gonzalez MD at [facility] PERCUTANEOUS CORONARY INTERVENTION SHUNT INSERTION TONSILLECTOMY AGE 4 Transcutaneous aortic valve replacement/Transfemoral/Kwan N/A 08/17/2023 Performed by Chava Norris MD at [facility] Valvuloplasty aortic N/A 06/03/2023 Performed by Chava Norris MD at [facility] Past Medical History: Diagnosis Date Anemia Arthritis Asthma very mild, no inhaler use Cataract Dental disease Depression Diabetes mellitus ([facility] Diabetes mellitus type 2, controlled ([facility]) Encephalitis Foot fracture, left GERD (gastroesophageal reflux disease) Heart murmur HLD (hyperlipidemia) Hypertension Incontinence Injury of back Insulin dependent diabetes mellitus Kidney failure STAGE 4 Lumbar spondylolysis Murmur Obesity CHELSEA (obstructive sleep apnea) no machine Peptic ulceration Peripheral vascular disease ([facility]) Shortness of breath TIA (transient ischemic attack) [...] and the following intervention(s) were applied: encouragement toexercise. Physical Exam Vitals and nursing note reviewed. [...] KAIDEN Werner 02/09/24 1420 documented in [facility]01-[facility]24 History of Present illness Narrative* KAIDEN Werner - 12/15/2023 3:00 PM EST Images from the original note were not included. [address] [place] [address] SUBJECTIVE: Patient ID: Cuca Goodwin is a [...] The problem occurs hourly. The cough is Non- productive. Associated symptoms include myalgias, nasal congestion, postnasal [...] past medical history, past social history, past surgicalhistory and problem list. Past Surgical History: Procedure Laterality Date BREAST BIOPSY Right 03/01/2023 ULT BIOPSY CATARACT EXTRACTION SECTION SECTION 03/14/1974 EGD N/A 10/17/2019 Performed by Sarai Bell DO at [facility] HYSTEROSCOPY DILATION CURETTAGE MYOSURE N/A 01/29/2021 Performed by Jv Briones MD at [facility] INJECTION BLOCK EPIDURAL CAUDAL STEROID N/A 08/14/2022 Performed by Arnulfo Gonzalez MD at [facility] INJECTION BLOCK EPIDURAL CAUDAL STEROID N/A 06/06/2021 Performed by Arnulfo Gonzalez MD at [facility] INJECTION BLOCK EPIDURAL CAUDAL STEROID N/A 04/25/2021 Performed by Arnulfo Gonzalez MD at [facility] INJECTION CAUDAL EPIDURAL WITH CATHETER, STEROID N/A 05/03/2020 Performed by Arnulfo Gonzalez MD at [facility] INJECTION CAUDAL EPIDURAL WITH CATHETER, STEROID N/A 11/24/2019 Performed by Arnulfo Gonzalez MD at [facility] INJECTION CAUDAL EPIDURAL WITH CATHETER, STEROID N/A 04/21/2019 Performed by Arnulfo Gonzalez MD at [facility] INJECTION MEDIAL BRANCH NERVE BLOCK Bilateral L 4/5, 5/1 Bilateral 08/18/2019 Performed by Arnulfo Gonzalez MD at [facility] INJECTION MEDIAL BRANCH NERVE BLOCK Bilateral L 4/5, 5/1 Bilateral 06/23/2019 Performed by Arnulfo Gonzalez MD at [facility] INJECTION STEROID EPI 1 WITH SEDATION Right L 4, 5 NR Right 03/17/2019 Performed by Arnulfo Gonzalez MD at [facility] INJECTION STEROID EPI 1 WITH SEDATION: right L45 nroot Right 08/15/2018 Performed by Arnulfo Gonzalez MD at [facility] LEFT L4, AND 5 NERVE ROOT INJECTION 2 OF 2 Left 07/22/2018 Performed by Arnulfo Gonzalez MD at [facility] LEFT L4, AND L5 NERVE ROOT 1 OF 2 Left 07/04/2018 Performed by Arnulfo Gonzalez MD at [facility] PERCUTANEOUS CORONARY INTERVENTION SHUNT INSERTION TONSILLECTOMY AGE 4 Transcutaneous aortic valve replacement/Transfemoral/Kwan N/A 08/17/2023 Performed by Chava Norris MD at [facility] Valvuloplasty aortic N/A 06/03/2023 Performed by Chava Norris MD at [facility] Past Medical History: Diagnosis Date Anemia Arthritis Asthma very mild, no inhaler use Cataract Dental disease Depression Diabetes mellitus ([facility]) Diabetes mellitus type 2, controlled ([facility] Encephalitis Foot fracture, left GERD (gastroesophageal reflux disease) Heart murmur HLD (hyperlipidemia) Hypertension Incontinence Injury of back Insulin dependent diabetes mellitus Kidney failure STAGE 4 Lumbar spondylolysis Murmur Obesity CHELSEA (obstructive sleep apnea) no machine Peptic ulceration Peripheral vascular disease ([facility]) Shortness of breath TIA (transient ischemic attack) [...] and the following intervention(s) were applied: encouragement toexercise. Physical Exam Vitals and nursing note reviewed. [...] needed (cough and congestion). Normal pressure hydrocephalus ([facility]) Moderate episode of recurrent major depressive disorder ([facility]) PVD (peripheral vascular disease) ([facility]) 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 mellitus ([facility]) - gabapentin (NEURONTIN) 300 mg capsule; Take 1 capsule (300 mg total) by mouth in the morning and 1 capsule (300 mg total) before bedtime. Stage 3b chronic kidney disease ([facility]) Major depressive disorder in partial remission, unspecified whether recurrent ([facility]) - sertraline (ZOLOFT) 100 mg tablet; Take 1 tablet (100 mg total) by mouth in the morning. Essential hypertension - metoprolol succinate XL (TOPROL XL) 25 mg 24 hr tablet; Take 1 tablet (25 mg total) by mouth oncedaily. GERD without esophagitis - pantoprazole (PROTONIX) 40 mg EC tablet; Take 1 tablet (40 mg total) by mouth in the morning. 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 ([facility]) - SITagliptin phosphate (JANUVIA) 50 mg [...] water gargles as needed for sore throat. Tylenolas needed per machine ii trimmer guidelines for fever or pain. Body mass [...] procedures Follow-up: 5 months KAIDEN Werner 12/15/23 1557 documented in this encounterMer[facility]01-[facility]24 History of Present illness Narrative* Casimiro Muñoz MD - 11/25/2023 2:30 PM EST Images from the original note were not included. [facility] 11/25/23 Cuca Goodwin is a 78 y.o. year old female seen today in the oncology clinic. Chief Complaint Patient presents with Follow-up History of Present Illness: Mrs. Goodwin is a 78 y.o. female with history of aortic valve stenosis, she had PCI earlier in the year at [facility] for coronary disease. during the cardiac workup she was found to havea right breast lesion. Ultrasound showed in the 10:00 position right breast was performed by the technologist. Just beneath the skin there is a hypoechoic irregular mass that is taller than wide measuring 1.4 x 1.4 x 1.5 cm. This mass has spiculated margins and internal blood flow. Biopsy of the lesion shows invasive mammary carcinoma, grade 2, ER strongly positive IL moderately positive and [id number]. There was also suspicious spine lesion, MRI showed extensive bony lesions. Femara palliative intent 03/2023. Interval history: The patient is doing well on Femara treatment. She underwent TAVR surgery several months ago and recovered well. Currently she has not taking any blood thinner. She is on treatment daily with Femara,very compliant with according to her daughter. She denies any significant musculoskeletal discomfort. Back pain seems to be stable. No weight loss. Past Medical History: Diagnosis Date Anemia Arthritis Asthma very mild, no inhaler use Cataract Dental disease Depression Diabetes mellitus ([facility] Diabetes mellitus type 2, controlled ([facility]) Encephalitis Foot fracture, left GERD (gastroesophageal reflux disease) Heart murmur HLD (hyperlipidemia) Hypertension Incontinence Injury of back Insulin dependent diabetes mellitus Kidney failure STAGE 4 Lumbar spondylolysis Murmur Obesity CHELSEA (obstructive sleep apnea) no machine Peptic ulceration Peripheral vascular disease ([facility]) Shortness of breath TIA (transient ischemic attack) Upper respiratory infection UTI (urinary tract infection) Visual impairment Wears dentures Past Surgical History: Procedure Laterality Date BREAST BIOPSY Right 03/01/2023 ULT BIOPSY CATARACT EXTRACTION SECTION SECTION 03/14/1974 EGD N/A 10/17/2019 Performed by Sarai Bell DO at [facility] HYSTEROSCOPY DILATION CURETTAGE MYOSURE N/A 01/29/2021 Performed by Jv Briones MD at [facility] INJECTION BLOCK EPIDURAL CAUDAL STEROID N/A 08/14/2022 Performed by Arnulfo Gonzalez MD at [facility] INJECTION BLOCK EPIDURAL CAUDAL STEROID N/A 06/06/2021 Performed by Arnulfo Gonzalez MD at [facility] INJECTION BLOCK EPIDURAL CAUDAL STEROID N/A 04/25/2021 Performed by Arnulfo Gonzalez MD at [facility] INJECTION CAUDAL EPIDURAL WITH CATHETER, STEROID N/A 05/03/2020 Performed by Arnulfo Gonzalez MD at [facility] INJECTION CAUDAL EPIDURAL WITH CATHETER, STEROID N/A 11/24/2019 Performed by Arnulfo Gonzalez MD at [facility] INJECTION CAUDAL EPIDURAL WITH CATHETER, STEROID N/A 04/21/2019 Performed by Arnulfo Gonzalez MD at [facility] MEDIAL BRANCH NERVE BLOCK Bilateral L 4/5, 5/1 Bilateral 08/18/2019 Performed by Arnulfo Gonzalez MD at [facility] INJECTION MEDIAL BRANCH NERVE BLOCK Bilateral L 4/5, 5/1 Bilateral 06/23/2019 Performed by Arnulfo Gonzalez MD at [facility] INJECTION STEROID EPI 1 WITH SEDATION Right L 4, 5 NR Right 03/17/2019 Performed by Arnulfo Gonzalez MD at [facility] INJECTION STEROID EPI 1 WITH SEDATION: right L45 nroot Right 08/15/2018 Performed by Arnulfo Gonzalez MD at [facility] LEFT L4, AND 5 NERVE ROOT INJECTION 2 OF 2 Left 07/22/2018 Performed by Arnulfo Gonzalez MD at [facility] LEFT L4, AND L5 NERVE ROOT 1 OF 2 Left 07/04/2018 Performed by Arnulfo Gonzalez MD at [facility] PERCUTANEOUS CORONARY INTERVENTION SHUNT INSERTION TONSILLECTOMY AGE 4 Transcutaneous aortic valve replacement/Transfemoral/Kwan N/A 08/17/2023 Performed by Chava Norris MD at [facility] Valvuloplasty aortic N/A 06/03/2023 Performed by Chava Norris MD at [facility] Family History Problem [...] min Stress: No Stress Concern Present (10/05/2022) [employer] - Occupational Stress Questionnaire Feeling of Stress : Not at all Social Connections: Moderately Isolated (10/05/2022) Social Connection and Isolation Panel [NHANES] Frequency of Communication with Friends and Family: Never Frequency of Social Gatherings with Friends and Family: Never Attends [employer] Services: More than 4 times per year [...] nephropathy, without long-term current use of insulin ([facility]) Signed by: KAIDEN Santana Monitor blood sugars four times daily and as needed clopidogreL 75 mg tablet Refills: 0 Dose: 75 mg Commonly known as: PLAVIX COMFORT EZ PEN NEEDLES 32 gauge x 5/16 needle Quantity: 200 each Refills: 6 For diagnoses: Type 2 diabetes mellitus with stage 4 chronic kidney disease, with long-term currentuse of insulin ([facility]) Dose: 4 applicator Signed by: KAIDEN Santana 4 applicators, miscellaneous, See admin instructions, 4 times daily injection Generic drug: pen needle, diabetic DEXCOM G6 ANIMAL HEALTH TECHNICIAN misc Refills: 0 Dose: 1 Device Generic drug: blood-glucose meter,continuous DEXCOM G6 SENSOR device Refills: 0 Generic drug: blood-glucose sensor gabapentin 300 mg capsule Quantity: 180 capsule Refills: 1 Doctor's comments: 90 Day Supply. 1 refill For diagnoses: 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 mellitus ([facility]) Dose: 300 mg Signed by: KAIDEN Santana 300 mg, oral, 2 times daily Commonly known as: NEURONTIN hydroCHLOROthiazide 25 mg tablet Refills: 0 Dose: 25 mg Commonly known as: HYDRODIURIL insulin lispro 100 unit/mL insulin pen Refills: 0 For diagnoses: Mixed diabetic hyperlipidemia associated with type 2 diabetes mellitus ([facility]) Dose: 2 Units Signed by: RONNA Solis [...] nephropathy, without long-term current use of insulin ([facility]) Signed by: KAIDEN Santana Monitor blood sugars four times daily and as needed Commonly known as: onetouch ultrasoft * ONETOUCH DELICA PLUS LANCET 33 gauge misc Refills: 0 Generic drug: lancets letrozole 2.5 mg chemo tablet Quantity: 90 tablet Refills: 3 For diagnoses: 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 female breast, unspecified estrogen receptor status ([facility]) Dose: 2.5 mg Signed by: Dr. Casimiro Muñoz MD 2.5 mg, oral, Daily Commonly known as: FEMARA LEVEMIR FLEXPEN 100 unit/mL (3 mL) insulin pen Quantity: 30 mL Refills: 3 For diagnoses: Controlled type 2 diabetes mellitus with diabetic nephropathy, without long-term current use of insulin ([facility]) Signed by: KAIDEN Santana INJECT 30 UNITS UNDER THE SKIN NIGHTLY Generic drug: insulin detemir U-100 metoprolol succinate XL 25 mg 24 hr tablet Quantity: 90 tablet Refills: 2 For diagnoses: Essential hypertension, Athscl heart disease of [place] coronary artery w/o ang pctrs Dose: 25 [...] disorder in partial remission, unspecified whether recurrent ([facility]) Dose: 100 mg Signed by: KAIDEN Santana 100 mg, oral, Daily Commonly known as: ZOLOFT SITagliptin phosphate 50 mg tablet Quantity: 90 tablet Refills: 1 For diagnoses: Diabetes mellitus type 2, insulin dependent ([facility]), Type 2 diabetes mellitus withstage 3b chronic kidney disease and hypertension [facility] [facility] [place] Dose: 50 mg Signed by: KAIDEN Santana [...] were clear to auscultation. There was no dullnessto percussion. Cardiac: Regular rate and rhythm, S1 [...] placed within the mass and multiple core b iopsies were obtained. The samples are placed in formalin. A biopsy clip was then placed within themass at the conclusion of the procedure. Manual [...] mammogram was obtained in a separate room andviewed on a dedicated work station. This was [...] appt: CBC, CMP, CA 15-3, CA 27.29. Casimiro Muñoz MD Please note that portions of this note were generated using voice recognition M*Modal dictation software. Although every effort was made to ensure the accuracy of this automated director broadcast, some errors in director broadcast may have occurred. CC: Patient Care Team: KAIDEN Werner as PCP - General (Family Medicine) John Quiles MD (Nephrology) KAIDEN Hsu as Nurse Practitioner (Pulmonary Medicine) Madison Ye MD as Referring Physician (Endocrinology, Diabetes & Metabolism) Casimiro Muñoz MD as Consulting Physician (Hematology) PCP:Pam Ley Referring MD: Pam Ley AP* [facility] Instructions* Patient Instructions* Casimiro Muñoz MD - 11/25/2023 2:30 PM EST Pet SCAN 02/2024. F/u in late 02/2024 to review results. Continue femara alone. Labs before appt: CBC, CMP, CA 15-3, CA 27.29. documented in this [facility] History of Present illness Narrative* Rosario Strong RN - 11/25/2023 2:16 PM EST Patient is here for follow up with Dr. Muñoz. Orders received for pet ct in February with cbc cmp ca 15-3 and ca27-29. Follow up scheduled in late February. Patient given calendar, verbalized understanding of future appointments. documented in [facility]27-[facility]23 History of Present illness Narrative* Stefanie Lu RN - 12/11/2022 11:07 AM EST Patient discharged home. Discharge instructions were explained and given to the patient, patient verbalized understanding. All belongings were sent with the patient. No signs of acute distress noted,no concerns voiced. * Sasha Maldonado PT - 12/10/2022 11:46 AM EST Physical Therapy Facility/Department: [address] [facility] Therapy Name: Cuca Goodwin : [...] section; Coronary angioplasty with stent (11/24/2022); and Coronaryangioplasty with stent (12/07/2022). Assessment Body Structures, Functions, Activity Limitations Requiring Skilled Therapeutic Intervention: Decreased functional mobility ;Decreased strength;Increased pain;Decreased posture;Decreased ROM;Decreasedendurance;Decreased balance Assessment: Pt ambulated 6 ft RW CGA, ambulation distance limited due to RLE with weightbearing. Ptwill require 24hr support upon discharge. Recommending continued skilled physical therapy to continue to progress gait training and endurance deficits to maximize independence upon discharge. Therapy Prognosis: Good Decision Making: Low Complexity Requires PT Follow-Up: Yes Activity Tolerance Activity Tolerance: Patient limited by pain Plan Physcial Therapy Plan General Plan: (5-6x/week) Current Treatment Recommendations: Strengthening, ROM, Balance training, Endurance training, Safetyeducation & training, Patient/Caregiver education & training, Therapeutic [...] 934 Time Out 1000 Minutes 25 Sasha Maldonado, PT * Tiffany Casillas PTA - 12/09/2022 1:06 PM EST Physical Therapy Facility/Department: [address] [facility] Treatment Note NAME: Cuca Goodwin : 1945 Date of Service: 12/09/2022 Discharge Recommendations: Patient would benefit from continued therapy after discharge Patient Diagnosis(es): There were no encounter diagnoses. Assessment Activity Tolerance: Patient limited by pain Pt amb 6'forward /reverse x 2 each with RW && CGA of 1. Pt mobility limited by LLE pain. Ptsit <-> stand from EOB CGA & RW. [...] Group Co-treatment Time In Time Out Minutes TIFFANY CASILLAS PTA * Radha Moya APRN - 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 - 12/09/2022 11:13 AM EST Images from the original note were not included. [employer] Progress Note Date: 12/09/2022 Patient name: Cuca Goodwin Date of admission: 12/07/2022 5:55 PM Date of : 1945 PCP: Michael Sanchez Reason for Admission: S/P angioplasty with [...] Ht 5' 5 (1.651 m) Wt 208 lb(94.3 kg) SpO2 95% BMI 34.61 kg/m General [...] a max pressure of: 12 graciela. Resolute Bennett 3.0 x 12 CÉSAR. 1 inflation(s) to a max pressure of: 12 graciela. RCA: Lesion on Dist RCA: Distal subsection. 80% stenosis 5 mm length reduced to 0%. Pre procedure ALBERTO III flow was noted. Post Procedure ALBERTO III flow was present. Good runoff was present. The lesion wasdiagnosed as Moderate Risk (B). Devices used Luge Wire 182 cm. Number of passes: 1. Resolute Bennett 2.5 x 12 CÉSAR. 1 inflation(s) to [...] Plans for TAVR work-up as OP [employer] [phone] * Princess Puente, PT - 12/08/2022 2:57 PM EST Physical Therapy Facility/Department: [address] [facility] Physical Therapy Initial Assessment Name: Cuca Goodwin : 1945 Date of Service: 12/08/2022 The patient is a 77 y.o. female who is admitted to the hospital for PCI for MVCAD. The patient has MVCAD and severe aortic stenosis was referred to CTS, however, was not deemed appropriateand was referred for TAVR and PCI. Discharge [...] section; Coronary angioplasty with stent (11/24/2022); and Coronaryangioplasty with stent (12/07/2022). Assessment Body Structures, Functions, Activity Limitations Requiring Skilled Therapeutic Intervention: Decreased functional mobility ;Decreased strength;Increased pain;Decreased posture;Decreased ROM;Decreasedendurance;Decreased balance Assessment: Pt ambulated 8ft RW CGA, [...] Recommendations: Strengthening, ROM, Balance training, Endurance training, Safetyeducation & training, Patient/Caregiver education & training, Therapeutic [...] repositioned in bed for comfort upon senior underwriter's exit. Subjective Subjective: RN and pt in agreement for PT eval. Pt supine in bed upon PT arrival, pt on 2L NC, verypleasant and cooperative throughout session Social/Functional History Social/Functional [...] rollator at baseline) Transfer Assistance: Independent Active Political Consultant: No Mode of Transportation: Friends, Cab Occupation: [...] decreased stance time RLE Gait Deviations: Slow Daina Distance: 8ft Comments: Pt demonstrates significant increased of RLE pain with ambulation, limiting ambulation distance at this time. More Ambulation?: No Stairs/Curb Stairs?: No Balance Posture: Fair Sitting - Static: Good;- Sitting - Dynamic: Fair;+ Standing - Static: Fair;+ Standing - Dynamic: Fair;- Comments: standing balanace assessed w/ RW; pt able to sit EOB CGA AM-PAC Score [facility] Inpatient Mobility Raw Score : 21 (12/08/221455) [...] Timed Code Treatment Minutes: 23 Minutes Princess Cindi, PT * Rita Leos, RADIATOR REPAIRER - 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 - 12/08/2022 1:02 PM EST Images from the original note were not included. [employer] Progress Note Date: 12/08/2022 Patient name: Cuca Goodwin Date of admission: 12/07/2022 5:55 PM Date of : 1945 PCP: Michael Sanchez Reason for Admission: S/P angioplasty with [...] present. Good runoff was present. The lesion wasdiagnosed as Moderate Risk (B). Devices used Luge [...] stable Plans for TAVR work-up as OP [employer] [phone] * Fany Bhakta RN - 12/08/2022 11:10 AM EST Aged Or Disabled Carer discussed the next step in the TAVR process, an appointment with the cardiothoracic surgeon,with patient and daughter at bedside in [facility]. Office number given to daughter, she will call to schedule in the next couple days. Aged Or Disabled Carer's contact number also given. * Joelle Enrique RN - 12/08/2022 10:00 AM EST Patient declined AM glucose check. She has Dexcom meter in place showing glucose of 99. [facility] policy of checking glucose with our glucometer due to Dexcom not being FDA approved. Ptverbalized understanding. Will try again at lunch time. * Keely Priest RN - 12/07/2022 3:42 PM EST Vascular scan complete. Manual pressure being held. Manual pressure held for 30 min. Groin soft but ecchymotic. Pedal pulses per doppler. Blood admin started at 16:50. No adverse reaction noted. Report called to Joelle PIERRE. Patient transported [facility] via stretcher. Right groin assessed byHeaellen and senior underwriter. Groin remains soft. * Flory Shelby RN - 12/07/2022 3:[address] Jin at bedside and aware of blood pressures. Iv rate to 999. [place] position as right groin scanned. Oxygen applied. Right groin swollen but much softer. Hand off to Keely PIERRE * Flory Shelby RN - 12/07/2022 3:15 PM EST Dry heaves as manual pressure held to right groin and lab in for stat draw. Vascular at bedside. * Flory Shelby RN - 12/07/2022 3:[address] Martinez out to view groin as large firm hematoma noted and marked. Manual pressure held * Keely Priest RN - 12/07/2022 3:00 PM EST Manual pressure held per senior underwriter for [address] Martinez at bedside to assess. Order for POC H & H received. Hemaglobin 6.9. Stat lab draw ordered. Dr Martinez at bedside to assess. Order for LLE vascualr scan received. * Keely Priest RN - 12/07/2022 1:30 PM EST 1 Patient admitted, consent signed and questions answered. Patient ready for procedure. Call light toreach with side rails up 2 of 2. Bilateral groin areas clipped with senior underwriter and Maggi estrada present. Daughter Ismael at bedside with patient. History and physical needs updated. * Keely Priest RN - 12/07/2022 1:30 PM EST Received post cardiac cath procedure to PCC room 10. Assessment obtained. Restrictions reviewed with patient. Post procedure pathway initiated. Right site noted to have small hematoma, manual pressure held by Juana. Band aid dry and intact. Family at side. Patient without complaints. Head of bed flat with right leg straight. documented in this encounterBON 3[employer] SystemsADAMA [employer] Work Phone: 1(443) 326-639601-23-2023 Note [facility] Vascular Lower Extremities Arterial Duplex Procedure Patient Name CHRISTA Date of Study 12/07/2022 CUCA Date of 1945 Gender Female Age 77 year(s) Race Room Number 0501 Height: 65 inch, 165.1 cm Corporate ID # [id number] Weight: 208 pounds, 94.3 kg Patient BSA: 2.01 m^2 BMI: 34.61 kg/m^2 MR # [id number] Waistband Setter Lockstitch Whit Gan RVT Interpreting Physician Darnell Monique [...] are measured in cm LE Duplex Measurements +---------++-----+-----+------+----+------++---+-----+------+----+---------+ ! !!Right! !Left ! ! !! ! ! ! ! ! +---------++-----+-----+------+----+------++---+-----+------+----+---------+ !Location !!PSV !Ratio!Wave !AP !Trans !!PSV!Ratio!Wave !AP !Trans ! ! !! ! !Desc. !Diam!Diam !! ! !Desc. !Diam!Diam ! +---------++-----+-----+------+----+------++---+-----+------+----+---------+ !Dist EIA !!185 ! ! ! ! !! ! ! ! ! ! +---------++-----+-----+------+----+------++---+-----+------+----+---------+ !Common !!162 !0.88 ! ! ! !! ! ! ! ! ! !Femoral !! ! ! ! ! !! ! ! ! ! ! +---------++-----+-----+------+----+------++---+-----+------+----+---------+ !Prox SFA !!174 ! ! ! ! !! ! ! ! ! ! +---------++-----+-----+------+----+------++---+-----+------+----+---------+PN STV [id number] History of Present illness Narrative* Keely Priest RN - 11/24/2022 1:00 PM EST Patient admitted, consent signed and questions answered. Patient ready for procedure. Call light toreach with side rails up 2 of 2. Bilateral groin areas clipped with senior underwriter and Jose PIERRE present. Daughter Ileana at bedside with patient. History and physical needs updated. documented in this encounterBON [employer] Work Phone: 1(611) 158-890705-06-2021 NotePROCEDURE: XR FOOT LT MIN 3 VIEWS COMPARISON: None. HISTORY: Pain FINDINGS: BONES:No acute fracture or dislocation. Persistent flexion of the toes limits their evaluation. Mild to moderate degenerative changes with joint space narrowing and marginal osteophyte formation, most significant at the first metatarsophalangeal joint where eteq-rs-gjil endplate is observed SOFT TISSUES:Negative. No visible soft tissue swelling. EFFUSION:None visible. OTHER: Negative. IMPRESSION: Moderate degenerative changes, no acute fracture Electronically authenticated by: GIOVANNY NICOLE Date: 2021-03-20 08:29[facility] note* Clinical Note Date No Information [employer] Work Phone: Discharge summary* Clinical Note Date No Information [employer] Work Phone: Evaluation note* Diagnosis Severe aortic valve stenosis- Primary Aortic valve disorders documented in this encounter [employer] Phone: evaluation note* Diagnosis RAIN (acute kidney injury) ([facility])- Primary Acute kidney failure, unspecified documented in this encounter [employer] Phone: evaluation note* Diagnosis Severe aortic valve stenosis- Primary Aortic valve disorders Type 2 diabetes mellitus with diabetic neuropathy, with long-term current use of insulin ([facility]) Tremors of nervous system Abnormal involuntary movements Family history of coronary arteriosclerosis Family history of ischemic heart disease CHELSEA (obstructive sleep apnea) nonadherent with cpap Obstructive sleep apnea (adult) (pediatric) Stage 3a chronic kidney disease ([facility]) Coronary artery disease involving chipewwa coronary artery of chipewwa heart without angina pectoris documented in this encounter [employer] Phone: evalcwbyer note* Diagnosis Aortic valve stenosis, etiology of cardiac valve disease unspecified documented in this encounter [employer] Phone: evalgnrqqm note* Diagnosis Aortic valve stenosis, etiology of cardiac valve disease unspecified documented in this encounter [employer] Phone: evaluation note* Diagnosis Nonrheumatic aortic valve stenosis- Primary S/p TAVR (transcatheter aortic valve replacement), bioprosthetic Coronary artery disease involving chipewwa coronary artery of chipewwa heart without angina pectoris documented [facility] encounter [facility]* Diagnosis Mixed diabetic hyperlipidemia associated with type 2 diabetes mellitus ([facility])- Primary Insomnia, unspecified type Elevated troponin level Other abnormal blood chemistry Recurrent UTI Urinary tract infection, site not specified documented [facility] this encounter [email or web address]* Diagnosis 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 breast in female, estrogen receptor positive (CMS-HCC)- Primary Metastasis to bone (CMS-HCC) Secondary malignant neoplasm of bone and bone marrow [facility]* Diagnosis 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 female breast, unspecified estrogen receptor status (CMS-HCC)- Primary [facility]* Diagnosis 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 female breast, unspecified estrogen receptor status (CMS-HCC)- Primary [facility] in [facility]* Diagnosis 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 female breast, unspecified estrogen receptor status (CMS-HCC)- Primary [facility]* Diagnosis Insomnia, unspecified type [facility]* Diagnosis Upper respiratory tract infection, unspecified type- Primary Normal pressure hydrocephalus (CMS-HCC) 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 ([facility]) PVD (peripheral vascular disease) ([facility]) Unspecified peripheral vascular disease 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) Stage 3b chronic kidney disease ([facility]) Major depressive disorder in partial remission, unspecified whether recurrent ([facility]) Essential hypertension Unspecified essential hypertension GERD without esophagitis Esophageal reflux 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 ([facility]) documented in this encounter [facility]* Diagnosis Pneumonia due to other specified organism- Primary documented in this encounter [facility]* Diagnosis 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 female breast, unspecified estrogen receptor status ([facility]) documented [facility]* Diagnosis Major depressive disorder in partial remission, unspecified whether recurrent (CMS-HCC) [facility]* Diagnosis Essential hypertension Unspecified essential hypertension Major depressive disorder in partial remission, unspecified whether recurrent (CMS-HCC) [facility]* Diagnosis Acute cystitis without hematuria- Primary Urge incontinence of urine Urge incontinence [facility]* Diagnosis Hypoglycemia- Primary Hypoglycemia, unspecified Mild intermittent reactive airway disease with acute exacerbation documented in this encounter [facility] note* Diagnosis Hypoglycemia- Primary Hypoglycemia, unspecified Need for influenza vaccination Need for prophylactic vaccination and inoculation against influenza Altered mental status, unspecified altered mental status type documented in this encounter [facility] System[facility] note* Diagnosis Beverly infection of flexural skin- Primary Candidiasis of skin and nails documented in this encounter [facility] note* Diagnosis 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 breast in female, estrogen receptor positive ([facility])- Primary documented in this encounter [facility] note* Diagnosis 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 mellitus ([facility]) documented in this encounter [facility] System[facility] note* Diagnosis Insomnia, unspecified type- Primary Moderate episode of recurrent major depressive disorder ([facility]) Stage 3b chronic kidney disease ([facility]) documented in this encounter [facility] System[facility] note* Diagnosis 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 breast in female, estrogen receptor positive ([facility])- Primary Metastasis to bone ([facility]) Secondary malignant neoplasm of bone and bone marrow documented in this encounter [facility] System[facility] note* Type Assessment Date No Information [facility] Work Phone: Evaluation note* Diagnosis MRSA (methicillin resistant Staphylococcus aureus)- Primary Methicillin resistant Staphylococcus aureus in conditions classified elsewhere and of unspecified site Staphylococcus aureus bacteremia with sepsis ([facility]) documented in this encounter [facility] note* Diagnosis Staphylococcus aureus bacteremia with sepsis ([facility])- Primary documented in this encounter [facility] System[facility] note* Diagnosis Staphylococcus aureus bacteremia with sepsis ([facility])- Primary MRSA (methicillin resistant Staphylococcus aureus) Methicillin resistant Staphylococcus aureus in conditions classified elsewhere and of unspecified site documented in this encounter [facility] note* Diagnosis Staphylococcus aureus bacteremia with sepsis ([facility])- Primary MRSA (methicillin resistant Staphylococcus aureus) Methicillin resistant Staphylococcus aureus in conditions classified elsewhere and of unspecified site documented in this encounter [facility] note* Diagnosis Staphylococcus aureus bacteremia with sepsis ([facility])- Primary MRSA (methicillin resistant Staphylococcus aureus) Methicillin resistant Staphylococcus aureus in conditions classified elsewhere and of unspecified site documented in this encounter [facility] note* Diagnosis Staphylococcus aureus bacteremia with sepsis ([facility])- Primary MRSA (methicillin resistant Staphylococcus aureus) Methicillin resistant Staphylococcus aureus in conditions classified elsewhere and of unspecified site documented in this encounter [facility] System[facility] note* Diagnosis Staphylococcus aureus bacteremia with sepsis ([facility])- Primary MRSA (methicillin resistant Staphylococcus aureus) Methicillin resistant Staphylococcus aureus in conditions classified elsewhere and of unspecified site documented in this encounter [facility] note* Diagnosis Staphylococcus aureus bacteremia with sepsis ([facility])- Primary MRSA (methicillin resistant Staphylococcus aureus) Methicillin resistant Staphylococcus aureus in conditions classified elsewhere and of unspecified site documented in this encounter [facility] note* Diagnosis Staphylococcus aureus bacteremia with sepsis ([facility])- Primary MRSA (methicillin resistant Staphylococcus aureus) Methicillin resistant Staphylococcus aureus in conditions classified elsewhere and of unspecified site documented in this encounter [facility]* Diagnosis Staphylococcus aureus bacteremia with sepsis ([facility])- Primary MRSA (methicillin resistant Staphylococcus aureus) Methicillin resistant Staphylococcus aureus in conditions classified elsewhere and of unspecified site documented in this encounter [facility]* Diagnosis Moderate major depression ([facility] Primary Major depressive disorder, single episode, moderate Insomnia, unspecified type Normal pressure hydrocephalus ([facility]) Idiopathic normal pressure hydrocephalus ([facility]) Acute on chronic diastolic heart failure ([facility]) Acute on chronic diastolic heart failure Diabetes mellitus type 2, insulin dependent ([facility]) documented in this encounter [facility] System[facility] note* Diagnosis Acute respiratory failure with hypoxia ([facility])- Primary Acute respiratory failure with hypoxia ([facility]) Nondisplaced fracture of lesser trochanter of right femur, initial encounter for closed fracture ([facility]) Generalized weakness Closed fracture of right hip, initial encounter ([facility]) Hypoxia Hypoxemia Type 2 diabetes mellitus with hypoglycemia without coma, with long-term current use of insulin ([facility]) 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 mellitus ([facility]) Mixed diabetic hyperlipidemia associated with type 2 diabetes mellitus ([facility]) Obstructive sleep apnea syndrome Obstructive sleep apnea (adult) (pediatric) Essential (primary) hypertension Unspecified essential hypertension Stage 3b chronic kidney disease [place] Type 2 diabetes mellitus with diabetic chronic kidney disease ([facility] [place] Closed fracture of right hip ([facility] Nondisplaced fracture of lesser trochanter of right femur, initial encounter for closed fracture ([facility] Hypomagnesemia Disorders of magnesium metabolism Iron deficiency anemia Unspecified iron deficiency anemia Acute on chronic diastolic congestive heart failure (CMS-HCC) documented in [facility] Diagnosis Hospital discharge follow-up- Primary Other follow-up examination Closed fracture of right hip, sequela documented in this [facility]* Diagnosis Acute right hip pain- Primary Acute pain of both hips Closed avulsion fracture of right hip with routine healing, subsequent encounter documented in this encounter [facility] HealthcareEvaluation noteNo assessment information availablePromedica Memorial Hospital Work Phone: History and physical note* Clinical Note Date No Information [facility] Work Phone: Hospital Discharge instructions* Attachments The following attachments cannot be sent through Care Everywhere. * PCI (Percutaneous Coronary Intervention): Post-op (Thai) [facility] Work Phone: InstructionsNot on filedocumented in this encounter [facility] SystemInstructionsNot on filedocumented in this encounter [facility] SystemInstructionsNot on filedocumented in this encounter [facility] SystemInstructions* Attachments The following attachments cannot be sent through Care Everywhere. * Carbohydrate Counting Diet (Thai) documented in this encounterPro[facility] SystemInstructionsNot on file documented in this encounterProJack [facility] SystemInstructionsNot on file documented in this encounterPro[facility] SystemInstructionsNot on file documented in this encounterProJack [facility] SystemInstructions* Attachments The following attachments cannot be sent through Care Everywhere. * Bacterial Upper Respiratory Infection, Adult (Thai) documented in this encounterPro[facility] Health SystemInstructions* Attachments The following attachments cannot be sent through Care Everywhere. * Pneumonia in adults (Thai) documented in this encounterProJack [facility] SystemInstructionsNot on file documented in this encounterProJack [facility] SystemInstructionsNot on file documented in this encounterProJack [facility] SystemInstructionsNot on file documented in this encounterProJack [facility] Hospital [facility] SystemInstructionsNot on file documented in this encounterProMer[facility] SystemInstructions* Attachments The following attachments cannot be sent through Care Everywhere. * Urinary Tract Infection Discharge Instructions, Adult (Thai) documented in this encounterProJack [facility] Health SystemInstructions* Attachments The following attachments cannot be sent through Care Everywhere. * Low blood sugar in people without diabetes (Thai) documented in this encounterProLanc[facility] HospitalO[facility] SystemInstructionsNot on file documented in this encounterProLancaster Municipal HospitalOcean Power Technologies SystemInstructionsNot on file documented in this encounterProLancaster [facility] HospitalOcean [facility] Technologies SystemInstructionsNot on file documented in this encounterMer[facility] SystemInstructions* Attachments The following attachments cannot be sent through Care Everywhere. * Flu vaccine (Thai) documented in this encounterProLanc[facility] HospitalO[facility] SystemInstructionsNot on file documented in this encounterProRingpay SystemInstructionsNot on file documented in this encounterProRingpay SystemInstructionsNot on file documented in this encounterProJack [facility] Hospital [facility] SystemInstructions* Attachments The following attachments cannot be sent through Care Everywhere. * Insomnia (Thai) documented in this encounterProLanc[facility] HospitalOcean [facility] SystemInstructionsNot on file documented in this encounterProRingpay SystemInstructionsNot on file documented in this encounterProRingpay SystemInstructionsNot on file documented in this encounterProRingpay SystemInstructionsNot on file documented in this encounterProLanc[facility] HospitalOcean [facility] SystemInstructionsNot on file documented in this encounterProLancaster [facility] HospitalOcean [facility] SystemInstructions* Attachments The following attachments cannot be sent through Care Everywhere. * Heart failure (Thai) [facility] this [facility] SystemProgress note* Clinical Note Date No Information [facility] Work Phone: Reason for referral (narrative)* Reason For Referral No Information [facility] Work Phone: Reason for referral (narrative)No reason for referral information availablePromedica Memorial Hospital Work Phone: Advance Directives No Advanced Directives Records FoundDocuments on File Type Date Recorded Patient Hand Washer Expl anation ACP-Advance Directive ACP-Power of Match Marker Latest Code Status on File Code Status [...] Documents on File Type Date Recorded Patient Hand Washer Expl anation ACP-Advance Directive 12/14/2022 2:27 PM Latest Code Status on File Code Status Date Activated Date Inactivated Comments Full Code 12/07/2022 11:24 AM 12/11/2022 1:10 PM Full Code 11/24/2022 11:19 AM 11/25/2022 2:46 AM Full Code 09/28/2022 4:15 AM 09/30/2022 6:37 PM Full Code 10/15/2014 1:49 PM 10/15/2014 8:39 PM Documents on File Type Date Recorded Patient Hand Washer Expl anation ACP-Advance Directive 12/14/2022 2:27 PM Latest Code Status on File Code Status Date Activated Date Inactivated Comments Full Code 12/07/2022 11:24 AM 12/11/2022 1:10 PM Documents on File Type Date Recorded Patient Hand Washer Expl anation Durable Power of Match Marker 10/21/2022 2:24 PM DNR Physician Order 10/21/2022 2:24 PM Living Will 01/30/2021 12:07 PM Durable Power of Match Marker 01/30/2021 12:07 PM Living Will 01/29/2021 6:19 AM Advance Directive 01/29/2021 6:18 AM DNR Physician Order 11/03/2019 1:27 PM Date Activated Date Inactivated Comments 11/09/2024 4:30 AM Date Activated Date Inactivated Comments 10/27/2024 10:46 PM 10/30/2024 6:52 PM Date Activated Date Inactivated Comments 08/23/2024 8:42 AM 08/24/2024 2:23 PM Date Activated Date Inactivated Comments 08/12/2024 3:34 AM 08/14/2024 8:05 PM Date Activated Date Inactivated Comments 06/13/2024 10:07 AM 2024 4:05 PM Date Activated Date Inactivated Comments 11/09/2024 4:30 AM 11/10/2024 3:17 PM Date Activated Date Inactivated Comments 03/28/2023 5:07 PM 04/01/2023 3:32 PM Date Activated Date Inactivated Comments 10/06/2022 8:43 AM 10/06/2022 8:41 PM Date Activated Date Inactivated Comments 10/05/2022 8:37 AM 10/06/2022 8:43 AM Date Activated Date Inactivated Comments 05/26/2022 4:03 PM 05/28/2022 5:26 PM Date Activated Date Inactivated Comments 11/29/2020 4:02 PM 12/01/2020 6:56 PM Documents on File Type Date Recorded Patient Hand Washer Expl anation Durable Power of Match Marker 10/21/2022 2:24 PM DNR Physician Order 10/21/2022 2:24 PM Living Will 01/30/2021 12:07 PM Durable Power of Match Marker 01/30/2021 12:07 PM Living Will 01/29/2021 6:19 AM Advance Directive 01/29/2021 6:18 AM DNR Physician Order 11/03/2019 1:27 PM Latest Code Status on File Code Status Date Activated Date Inactivated Comments Full Code 03/28/2023 5:07 PM 04/01/2023 3:32 PM Code Status History Code Status Date Activated Date Inactivated Comments DNR Comfort Care Arrest (DNR-CCA) [place] 10/06/2022 8:43 AM 10/06/2022 8:41 PM Full Code 10/05/2022 8:37 AM 10/06/2022 8:43 AM Full Code 05/26/2022 4:03 PM 05/28/2022 5:26 PM Full Code 11/29/2020 4:02 PM 12/01/2020 6:56 PM Latest Code Status on File Code Status Date Activated Date Inactivated Comments Full Code 03/28/2023 5:07 PM 04/01/2023 3:32 PM Code Status History Code Status Date Activated Date Inactivated Comments DNR Comfort Care Arrest (DNR-CCA) [place] 10/06/2022 8:43 AM 10/06/2022 8:41 PM Full Code 10/05/2022 8:37 AM 10/06/2022 8:43 AM Full Code 05/26/2022 4:03 PM 05/28/2022 5:26 PM Full Code 11/29/2020 4:02 PM 12/01/2020 6:56 PM Date Activated Date Inactivated Comments 06/13/2024 10:07 AM 2024 4:05 PM Date Activated Date Inactivated Comments 03/28/2023 5:07 PM 04/01/2023 3:32 PM Date Activated Date Inactivated Comments 10/06/2022 8:43 AM 10/06/2022 8:41 PM Date Activated Date Inactivated Comments 10/05/2022 8:37 AM 10/06/2022 8:43 AM Date Activated Date Inactivated Comments 05/26/2022 4:03 PM 05/28/2022 5:26 PM Date Activated Date Inactivated Comments 08/12/2024 [...] Comments 10/06/2022 8:43 AM 10/06/2022 8:41 PM Directive Yes / No Effective Date File Name No Information Date Activated Date Inactivated Comments 02/14/2025 11:06 PM Date Activated Date Inactivated Comments 02/12/2025 8:06 PM 02/14/2025 10:55 PM Date Activated Date Inactivated Comments 11/09/2024 4:30 AM 11/10/2024 3:17 PM Date Activated Date Inactivated Comments 10/27/2024 10:46 PM 10/30/2024 6:52 PM Date Activated Date Inactivated Comments 08/23/2024 8:42 AM 08/24/2024 2:23 PM Date Activated Date Inactivated Comments 02/14/2025 11:06 PM 02/24/2025 3:32 PM Date Activated Date Inactivated Comments 02/14/2025 11:06 PM 02/24/2025 3:32 PM Date Activated Date Inactivated Comments 02/12/2025 8:06 PM 02/14/2025 10:55 PM Date Activated Date Inactivated Comments 11/09/2024 4:30 AM 11/10/2024 3:17 PM Date Activated Date Inactivated Comments 10/27/2024 10:46 PM 10/30/2024 6:52 PM Date Activated Date Inactivated Comments 08/23/2024 8:42 AM 08/24/2024 2:23 PM Date Activated Date Inactivated Comments 03/16/2025 3:53 PM 03/19/2025 2:00 PM Date Activated Date Inactivated Comments 02/14/2025 11:06 PM 02/24/2025 3:32 PM Date Activated Date Inactivated Comments 02/12/2025 8:06 PM 02/14/2025 10:55 PM Date Activated Date Inactivated Comments 11/09/2024 4:30 AM 11/10/2024 3:17 PM Date Activated Date Inactivated Comments 10/27/2024 10:46 PM 10/30/2024 6:52 PM Date Activated Date Inactivated Comments 03/16/2025 3:53 PM 03/19/2025 2:00 PM Date Activated Date Inactivated Comments 02/14/2025 11:06 PM 02/24/2025 3:32 PM Date Activated Date Inactivated Comments 02/12/2025 8:06 PM 02/14/2025 10:55 PM Date Activated Date Inactivated Comments 11/09/2024 4:30 AM 11/10/2024 3:17 PM Date Activated Date Inactivated Comments 10/27/2024 10:46 PM 10/30/2024 6:52 PM Documents on File Type Date Recorded Patient Hand Washer Expl anation Durable Power of Match Marker 03/30/2025 9:23 AM Durable Power of Match Marker 10/21/2022 2:24 PM DNR Physician Order 10/21/2022 2:24 PM Living Will 01/30/2021 12:07 PM Durable Power of Match Marker 01/30/2021 12:07 PM Living Will 01/29/2021 6:19 AM Advance Directive 01/29/2021 6:18 AM DNR Physician Order 11/03/2019 1:27 PM Documents on File Type Date Recorded Patient Hand Washer Expl anation Durable Power of Match Marker 03/30/2025 9:23 AM Durable Power of Match Marker 10/21/2022 2:24 PM DNR Physician Order 10/21/2022 2:24 PM Living Will 01/30/2021 12:07 PM Durable Power of Match Marker 01/30/2021 12:07 PM Living Will 01/29/2021 6:19 AM Advance Directive 01/29/2021 6:18 AM DNR Physician Order 11/03/2019 1:27 PM Date Activated Date Inactivated Comments 05/13/2025 2:45 PM 05/15/2025 7:30 PM Date Activated Date Inactivated Comments 03/16/2025 3:53 PM 03/19/2025 2:00 PM Date Activated Date Inactivated Comments 02/14/2025 11:06 PM 02/24/2025 3:32 PM Date Activated Date Inactivated Comments 02/12/2025 8:06 PM 02/14/2025 10:55 PM Date Activated Date Inactivated Comments 11/09/2024 4:30 AM 11/10/2024 3:17 PM Date Activated Date Inactivated Comments 05/13/2025 2:45 PM 05/15/2025 7:30 PM Date Activated Date Inactivated Comments 03/16/2025 3:53 PM 03/19/2025 2:00 PM Date Activated Date Inactivated Comments 02/14/2025 11:06 PM 02/24/2025 3:32 PM Date Activated Date Inactivated Comments 02/12/2025 8:06 PM 02/14/2025 10:55 PM Date Activated Date Inactivated Comments 11/09/2024 4:30 AM 11/10/2024 3:17 PM Advance Directive Response Recorded Date/ Time Advance Directives No June 26, 2025 5:21am Summary Purpose Family History No Family History Records Found Family Member Type Diagnosis Age At Onset Problem (finding) Family history of Heart Disease Mother Problem (finding) Arthritis Mother Problem (finding) Cataracts Mother Problem (finding) Diabetes mellitus Reason for Referral Specialty Diagnoses / Procedures Referred By Contac t Referred To Contact Radiology Diagnoses Aortic valve stenosis, etiology of cardiac valve disease unspecified Procedures CT CARDIAC W C ST MORP CARD ONLY 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, RADIATOR REPAIRER - 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 [address] [place] [address] Referral ID Status Reason Start Date Expiration Date Visits Re quested Visits Authorized [id number] Closed 01/11/2023 04/10/2023 1 1 Specialty Diagnoses / Procedures Referred By Contac t Referred To Contact Radiology Diagnoses Aortic valve stenosis, etiology of cardiac valve disease unspecified Procedures CTA CHEST ABDOMEN PELVIS W CONTRAST 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, RADIATOR REPA[employer]ER 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 [address] [place] [address] Referral ID Status Reason Start Date Expiration Date Visits Re quested Visits Authorized [id number] Closed 01/11/2023 04/10/2023 1 1 Specialty Diagnoses / Procedures Referred By Contac t Referred To Contact Radiology Diagnoses 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 female breast, unspecified estrogen receptor status (CMS-HCC) 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 breast in female, estrogen receptor positive (CMS-HCC) Procedures PET CT skull to thigh Casimiro Muñoz MD [address] [place] [address] [address] [place], [place] [id number] Referral ID Status Reason Start Date Expiration Date V isits Requested Visits Authorized [id number] Pending Review 11/25/2023 11/24/2024 1 1 Chief Complaint and Reason for Visit Chief Complaint Admit Date Unknown June 25, 2025 1: 36pm Additional Source Comments INFORMATION SOURCE (unrecogn ized section and content) DATE CREATED AUTHOR 03/27/2021 [facility] DATE CREATED AUTHOR AUTHOR'S ORGANIZ ATION 04/09/2021 [facility] DATE CREATED AUTHOR AUTHOR'S ORGANIZ ATION 04/06/2022 [facility] DATE CREATED AUTHOR AUTHOR'S ORGANIZ ATION 01/22/2023 [facility] DATE CREATED AUTHOR AUTHOR'S ORGANIZ ATION 02/12/2025 [facility] DATE CREATED AUTHOR AUTHOR'S ORGANIZ ATION 05/31/2025 [facility] DATE CREATED AUTHOR AUTHOR'S ORGANIZ ATION 06/07/2025 [facility] DATE CREATED AUTHOR AUTHOR'S ORGANIZ ATION 06/09/2025 [facility] DATE CREATED AUTHOR AUTHOR'S ORGANIZ ATION 06/10/2025 [facility] DATE CREATED AUTHOR AUTHOR'S ORGANIZ ATION 06/16/2025 [facility] DATE CREATED AUTHOR AUTHOR'S ORGANIZ ATION 06/29/2025 [facility] Reason for Visit (unrecogniz ed section and content) Specialty Diagnoses / Procedures Referred By Contac t Referred To Contact [facility] [address] [place] [address] Referral ID Status Reason Start Date Expiration Date Visits Re quested Visits Authorized [id number] 1 1 Referral ID Status Reason Start Date Expiration Date Visits Re quested Visits Authorized [id number] 1 1 Specialty Diagnoses / Procedures Referred By Contac t Referred To Contact Radiology Diagnoses Aortic valve stenosis, etiology of cardiac valve disease unspecified Procedures CT CARDIAC W C STC MORP CARD ONLY 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, RADIATOR REPAIRER 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 [address] [place] [address] Referral ID Status Reason Start Date Expiration Date Visits Re quested Visits Authorized [id number] Closed 01/11/2023 04/10/2023 1 1 Specialty Diagnoses / Procedures Referred By Contac t Referred To Contact Radiology Diagnoses Aortic valve stenosis, etiology of cardiac valve disease unspecified Procedures CTA CHEST ABDOMEN PELVIS W CONTRAST 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, RADIATOR REPAIRER - 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 [address] [place] [address] Referral ID Status Reason Start Date Expiration Date Visits Re quested Visits Authorized [id number] Closed 01/11/2023 04/10/2023 1 1 Reason Onset Date Comments Hospital Follow-up 11/13/2024 Reason Comments Follow-up EST PT HOSPITAL FU P MH ELEVATED TROPONIN Reason Comments tcm Dec, [facility] Reason Comments Follow-up Reason Onset Date Comments Med Refill 12/06/2023 Reason Comments Cough Nasal Congestion Reason Comments discharge / bethezda Reason Comments Med Refill Reason Onset Date Comments Med Refill 05/11/2024 Reason Onset Date Comments Med Refill 06/02/2024 Reason Comments incontinence Reason Onset Date Comments Transition Of Care 08/16/2024 Reason Comments Med Change Request Reason Comments tcm Reason Onset Date Comments Med Refill 01/18/2025 Reason Comments retaining water Insomnia Reason Onset Date Comments critical lab 02/18/2025 Reason Comments Outpatient Infusion Daptomycin Reason Comments Outpatient Infusion IV Daptomycin Reason Comments Outpatient Infusion daptomycin Reason Comments Outpatient Infusion Daptomycin Labs Only Cbc bmp cpk Reason Comments follow up Reason Comments Back Pain Pt presents via ems for right sided back pain from sciatica. Was here yesterday. Daughter called EMS for transport. Pt denies any SOB or CP, but presents at 90% spo2 on 3L/NC. Specialty Diagnoses / Procedures Referred By Contac t Referred To Contact Diagnoses Hypoxia Acute respiratory failure with hypoxia (CMS-HCC) [facility] [address] [place] [address] Phone: tel: fax: Referral ID Status Reason Start Date Expiration Date Visits Re quested Visits Authorized [id number] 1 1 Reason Comments Follow-up Pneumonia, Hairline Fracture of hip. [facility] to [facility] Reason Comments Pain Reason Onset Date Comments OTC Tylenol not working 06/18/2025 Care Teams (unrecognized sec tion and content) Supervisor Dairy Sanitation Relationship Specialty Start Date End Date Michael Sanchez PCP - General Family Medicine 09/29/22 Supervisor Dairy San[employer] Relationship Specialty Start Date End Date Michael Sanchez PCP - General Family Medicine 09/29/22 Supervisor Dairy Sanitation Relationship Specialty Start Date End Date Micheal Sanchez PCP - General Family Medicine 09/29/22 Supervisor Dairy Sanitation Relationship Specialty Start Date End Date Michael Sanchez PCP - General Family Medicine 09/29/22 Supervisor Dairy Sanitation Relationship Specialty Start Date End Date Michael Sanchez PCP - General Family Medicine 09/29/22 Supervisor Dairy Sanitation Relationship Specialty Start Date End Date Pam Ley, [facility] [address] [place] [address] PCP - General 01/15/23 Supervisor Dairy Sanitation Relationship Specialty Start Date End Date Pam Ley, [facility] [address] [place] [address] PCP - General 01/15/23 Supervisor Dairy Sanitation Relationship Specialty Start Date End Date Pam Ley [facility] [address] [place] [address] PCP - General Family Medicine 09/28/23 Supervisor Dairy Sanitation Relationship Specialty Start Date End Date Pam Ley [facility] [address] [place] [address] PCP - General Family Medicine 09/28/23 Supervisor Dairy Sanitation Relationship Specialty Start Date End Date Pam Ley [facility] [address] [place] [address] PCP - General Family Medicine 11/17/24 Supervisor Dairy Sanitation Relationship Specialty Start Date End Date Pam Ley [facility] [address] [place] [address] PCP - General Family Medicine 11/17/24 Supervisor Dairy Sanitation Relationship Specialty Start Date End Date Pam Ley [facility] [address] [place] [address] PCP - General Family Medicine 11/17/24 Supervisor Dairy Sanitation Relationship Specialty Start Date End Date [facility] [address] [place] [address] PCP - General Family Medicine 09/28/23 Supervisor Dairy Sanitation Relationship Specialty Start Date End Date Pam Ley [facility] [address] [place] [address] PCP - General Family Medicine 09/28/23 Supervisor Dairy Sanitation Relationship Specialty Start Date End Date Pam Ley [facility] [address] [place] [address] PCP - General Family Medicine 09/28/23 Supervisor Dairy Sanitation Relationship Specialty Start Date End Date Pam Ley [facility] [address] [place] [address] PCP - General Family Medicine 09/28/23 Supervisor Dairy Sanitation Relationship Specialty Start Date End Date Pam Ley [facility] [address] [place] [address] PCP - General Family Medicine 09/28/23 Supervisor Dairy Sanitation Relationship Specialty Start Date End Date Pam Ley [facility] [address] [place] [address] PCP - General Family Medicine 09/28/23 Supervisor Dairy Sanitation Relationship Specialty Start Date End Date Pam Ley [facility] [address] [place] [address] PCP - General Family Medicine 09/28/23 Supervisor Dairy Sanitation Relationship Specialty Start Date End Date Pam Ley [facility] [address] [place] [address] PCP - General Family Medicine 09/28/23 Supervisor Dairy Sanitation Relationship Specialty Start Date End Date Pam Ley [facility] [address] [place] [address] PCP - General Family Medicine 09/28/23 Supervisor Dairy Sanitation Relationship Specialty Start Date End Date Pam Ley [facility] [address] [place] [address] PCP - General Family Medicine 09/28/23 Supervisor Dairy Sanitation Relationship Specialty Start Date End Date Pam Ley [facility] [address] [place] [address] PCP - General Family Medicine 09/28/23 Supervisor Dairy Sanitation Relationship Specialty Start Date End Date Pam Ley [facility] [address] [place] [address] PCP - General Family Medicine 09/28/23 Supervisor Dairy Sanitation Relationship Specialty Start Date End Date Pam Ley [facility] [address] [place] [address] PCP - General Family Medicine 09/28/23 Supervisor Dairy Sanitation Relationship Specialty Start Date End Date Pam Ley [facility] [address] [place] [address] PCP - General Family Medicine 09/28/23 Supervisor Dairy Sanitation Relationship Specialty Start Date End Date Pam Ley [facility] [address] [place] [address] PCP - General Family Medicine 09/28/23 Supervisor Dairy Sanitation Relationship Specialty Start Date End Date Pam Ley [facility] [address] [place] [address] PCP - General Family Medicine 09/28/23 Supervisor Dairy Sanitation Relationship Specialty Start Date End Date Pam Ley [facility] [address] [place] [address] PCP - General Family Medicine 09/28/23 Supervisor Dairy Sanitation Relationship Specialty Start Date End Date Pam Ley [facility] [address] [place] [address] PCP - General Family Medicine 01/11/25 Supervisor Dairy Sanitation Relationship Specialty Start Date End Date Pam Ley [facility] [address] [place] [address] PCP - General Family Medicine 01/11/25 Supervisor [employer] Relationship Specialty Start Date End Date Pam Ley [facility] [address] [place] [address] PCP - General Family Medicine 01/11/25 Supervisor [employer] Relationship Specialty Start Date End Date Pam [facility] [address] [place] [address] PCP - General Family Medicine 01/11/25 Name Effective Dates (start - stop) Status Members No Information Supervisor [employer] Relationship Specialty Start Date End Date Pam [facility] [address] [place] [address] PCP - General Family Medicine 01/11/25 Supervisor [employer] Relationship Specialty Start Date End Date Pam [facility] [address] [place] [address] PCP - General Family Medicine 01/11/25 Supervisor [employer] Relationship Specialty Start Date End Date Pam Ley [facility] [address] [place] [address] PCP - General Family Medicine 01/11/25 Supervisor [employer] Relationship Specialty Start Date End Date Pam [facility] [address] [place] [address] PCP - General Family Medicine 01/11/25 Supervisor [employer] Relationship Specialty Start Date End Date Pam Ley [facility] [address] [place] [address] PCP - General Family Medicine 01/11/25 Supervisor [employer] Relationship Specialty Start Date End Date Pam Ley [facility] [address] [place] [address] PCP - General Family Medicine 03/16/25 Supervisor [employer] Relationship Specialty Start Date End Date [facility] [address] [place] [address] PCP - General Family Medicine 03/16/25 Supervisor [employer] Relationship Specialty Start Date End Date Pam Ley [facility] [address] [place] [address] PCP - General Family Medicine 03/16/25 Supervisor [employer] Relationship Specialty Start Date End Date Pam Ley [facility] [address] [place] [address] PCP - General Family Medicine 03/16/25 Supervisor [employer] Relationship Specialty Start Date End Date Pam Ley [facility] [address] [place] [address] PCP - General Family Medicine 03/16/25 Supervisor [employer] Relationship Specialty Start Date End Date Pam Ley [facility] [address] [place] [address] PCP - General Family Medicine 03/16/25 Supervisor [employer] Relationship Specialty Start Date End Date Pam Ley [facility] [address] [place] [address] PCP - General Family Medicine 03/16/25 Supervisor [employer] Relationship Specialty Start Date End Date Pam Ley, [facility] [address] [place] [address] PCP - General Family Medicine 03/16/25 Supervisor [employer] Relationship Specialty Start Date End Date Pam Ley, [facility] [address] LEFT PM 05/14/25 [place] [address] PCP - General Family Medicine 05/14/25 Supervisor [employer] Relationship Specialty Start Date End Date Vj Gray, [facility] [address] [place] [address] PCP - General Nurse Practitioner 05/30/25 Supervisor [employer] Relationship Specialty Start Date End Date Unallocated, nAdrea Javed MD [address] [place] [address] PCP - General Family Medicine 06/06/25 Supervisor [employer] Relationship Specialty Start Date End Date Unallocated, Andrea Javed MD [address] [place] [address] PCP - General Family Medicine 06/06/25 Supervisor [employer] Relationship Specialty Start Date End Date Unallocated, Andrea Javed MD [address] [place] [id number] PCP - General Family Medicine 06/06/25 Team Status: Inactive Member Role Status Dates Ra Maravilla DO Attending Provider Active S tart: June 25, 2025 End: June 25, 2025 Ordered Prescriptions (unrec ognized section and content) [...] Villavicencio RN) 1955 (Given - Provider: Libia Lyons RN) [...] Villavicencio RN) 0605 (Rate/Dose Verify - Provider: Tamkia Villavicencio RN) 0959 (Stopped - Provider: Stefanie [...] from all sources in 24 hours., Recovery(Cath) 0977 (Given - Provider: Jacqueline Medina RN) bisacodyl [...] back and for the from 3C to [facility] as needed for addt'l testing throughout the day. Pt will finish day in 3C for final hours of hydration., Pre-Procedure(Cath) 0750 (New Bag - Prov ider: CONSTANTINO SINGH)1653 (Stopped - Provider: CONSTANTINO SINGH) Scheduled Medication Order 05/13/2025 05/14/2025 05/15/2025 doxycycline (VIBRAMYCIN) capsule 100 mg 100 mg, oral, 2 times daily, First dose on Wed05/14/25 at 1115, For 5 days, Indication: Community-acquired pneumonia 1156 (Given - Provider: Migue Douglas RN)2133 (Given - Provider: Ely Riddle RN) 0901 (Given - Provider: Migue Douglas RN) ferrous sulfate tablet 325 mg 325 mg, oral, Daily with breakfast, First dose on Wed05/14/25 at 1330, Give ferrous sulfate 2 hours before or 4 hours after antacids. 1527 (Given - Provider: Migue Douglas RN) 0901 (Given - Provider: Migue Douglas RN) furosemide (LASIX) tablet 20 mg 20 mg, oral, Daily, First dose on Wed05/14/25 at 1115, Look-alike/sound-alike medication - verify indication for use. 1156 (Given - Provider: Migue Douglas RN) 0900 (Given - Provider: Migue Douglas RN) gabapentin (NEURONTIN) capsule 300 mg 300 mg, oral, Daily, First dose on Wed05/14/25 at 0900, Look-alike/sound-alike medication - verify indication for use. 0843 (Given - Provider: Migue Douglas RN) 0900 (Given - Provider: Migue Douglas RN) gabapentin (NEURONTIN) capsule 600 mg 600 mg, oral, Nightly, First dose on Wed05/14/25 at 2200, Look-alike/sound-alike medication - verify indication for use. 2131 (Given - Provider: Ely Riddle, GABBY) heparin (porcine) injection 5,000 Units 5,000 Units, subcutaneous, Every 8 hours scheduled, First dose on Wed05/14/25 at 0600, Scheduling/ADT, Notify prescriber if INR greater than 1.9, hemoglobin less than 10 mg/dL, aPTT greater than 40 seconds, and/or platelet count less than 100,000/mm Look-alike/sound-alike medication - verify indication for use. Observe for bleeding. 0600 (Not Given - Provider: Genoveva Medley RN - Reason: Patient/family refused)1402 (Given - Provider: Migue Douglas RN)2133 (Given - Provider: Ely Riddle, GABBY) 0524 (Given - Provider: Ely Riddle, GABBY)1436 (Given - Provider: Migue Douglas RN) insulin lispro (HumaLOG) injection 2-10 Units 2-10 Units, subcutaneous, 3 times daily with meals, First dose on Wed05/13/25 at 1700, Scheduling/ADT, Daytime hyperglycemia dosing. For blood glucose [...] minutes before or immediately after a meal. 1700 (Not Given - Provider: Cristóbal Becerra RN - Reason: Order parameters not met - Comment: [id number]) 0800 (Not Given - Provider: Migue Douglas RN - Reason: Order parameters not met - Comment: 148 met panel)1226 (Given - Provider: Migue Douglas RN - Comment: [phone] (Given - Provider: Migue Douglas RN - Comment: [phone] 0902 (Given - Provider: Migue Douglas RN - Comment: 152 met panel)1102 (Given - Provider: Migue Douglas RN - Comment: [phone] (Due) insulin lispro (HumaLOG) injection 2-8 Units 2-8 Units, subcutaneous, Nightly, First dose on 05/13/25 at 2200, Scheduling/ADT, Bedtime hyperglycemia dosing. For [...] minutes before or immediately after a meal. 2213 (Given - Provider: Genoveva Medley RN) 2134 (Given - Provider: Ely Riddle RN) insulin regular (HumuLIN R,NovoLIN R) injection 10 Units (COMPLETED) 10 Units, subcutaneous, Once, On 05/13/25 at 1505, For 1 dose, Look-alike/sound-alike medication - verify indication for use. Prandial/supplemental insulin. Stable for 28 days at room temperature. 1505 (Given - Provider: Peggy Ledesma RN - Comment: no med labels in pyxis) magnesium oxide (MAGOX) tablet 400 mg 400 mg, oral, Daily, First dose on Wed05/14/25 at 1330 1527 (Given - Provider: Migue Douglas RN) 0901 (Given - Provider: Migue Douglas RN) mirtazapine (REMERON) tablet 7.5 mg 7.5 mg, oral, Nightly, First dose on Wed05/14/25 at 0145 0158 (Given - Provider: Genoveva Medley RN)213 (Given - Provider: Ely Riddle RN) piperacillin-tazobactam (ZOSYN) IVPB 3.375 g/50 mL in iso-osmotic dextrose (67.5 mg/mL premix) (CANCELED) 3.375 g, intravenous, at 12.5 mL/hr, Administer over 4 Hours, Every 8 hours, First dose on Wed05/13/25 at 1600, Scheduling/ADT, Start 4 hours after 4.5gram dose, Indication: Sepsis 1732 (New Bag - Provider: Shaista Cooley RN)1833 (Rate/Dose Verify - Provider: Cristóbal Becerra RN)1835 (Rate/Dose Verify - Provider: Cristóbal Becerra RN)1857 (Paused - Provider: Migue Douglas RN)190 (Restarted - Provider: Migue Douglas RN)190 (Paused - Provider: Migue Douglas RN)1909 (Restarted - Provider: Migue Douglas RN)1952 (Paused - Provider: Migue Douglas RN)1954 (Restarted - Provider: Migue Douglas RN)2000 (Paused - Provider: Migue Douglas RN)2009 (Restarted - Provider: Migue Douglas RN)2024 (Stop Bag - Provider: Migue Douglas RN)2131 (Stop Bag - Provider: Genoveva Medley RN) 0038 (New Bag - Provider: Genoveva Medley RN)0357 (Stop Bag - Provider: Migue Douglas RN)0401 (Stop Bag - Provider: Migue Douglas RN)0438 (Stop Bag - Provider: Genoveva Medley RN)0842 (New Bag - Provider: Migue Douglas RN)0910 (Stop Bag - Provider: Migue Douglas RN)1103 (Not Given - Provider: Migue Douglas RN - Reason: See Provider Order - Comment: Time automatically adjusted from order being discontinued) piperacillin-tazobactam (ZOSYN) IVPB 4.5 g/100 mL in iso-osmotic dextrose (45 mg/mL premix) (COMPLETED)(Linked Group 1) 4.5 g, intravenous, at 200 mL/hr, Administer over 0.5 Hours, Once, On Wed05/13/25 at 1110, For 1 dose, Administer piperacillin/tazobactam before vancomycin as long as this does not significantly delay start of antibiotics., Indication: Other, Specify: Unknown Source 1154 (New Bag - Provider: Peggy Ledesma RN)1325 (Stop Bag - Provider: Peggy Ledesma RN) sertraline (ZOLOFT) tablet 100 mg 100 mg, oral, Daily, First dose on Wed05/14/25 at 0900, Look-alike/sound-alike medication - verify indication for use. 0843 (Given - Provider: Migue Douglas RN) 0901 (Given - Provider: Migue Douglas RN) sodium chloride 0.9 % bolus (COMPLETED) 1,710 mL (30 mL/kg 57 kg Robinson weight), intravenous, at 1,682 mL/hr, Administer over 61 Minutes, Once, On Wed05/13/25 at 1110, For 1 dose 1140 (New Bag - Provider: Peggy Ledesma RN - Comment: exceeds pump max rate)1536 (Stop Bag - Provider: Peggy Ledesma RN) traZODone (DESYREL) tablet 100 mg 100 mg, oral, Nightly, First dose on Wed05/14/25 at 0145, Look-alike/sound-alike medication - verify indication for use. 0158 (Given - Provider: Genoveva Medley RN)2133 (Given - Provider: Eyl Riddle, GABBY) vancomycin (VANCOCIN) 1,750 mg in sodium chloride 0.9 % 500 mL IVPB W/ADAPTER (COMPLETED)(Linked Group 1) 1,750 mg (rounded from 1,714 mg = 20 mg/kg 85.7 kg), intravenous, at 250 mL/hr, Administer over 120 Minutes, Once, On 05/13/25 at 1140, For 1 dose, Administer vancomycin after piperacillin/tazobactam as long as this does not significantly delay start of antibiotics For Vial-2-Bag: Attach bag and vial to adapter - Use immediately after activating; dissolve drug prior to administration., Indication: Other, Specify: Unknown Source 1326 (New Bag - Provider: Peggy Ledesma RN)1329 (Paused - Provider: Cristóbal Becerra RN)1332 (Restarted - Provider: Cristóbal Becerra RN)1434 (Paused - Provider: Cristóbal Becerra RN)1533 (Restarted - Provider: Cristóbal Becerra RN)1537 (Continue to Inpatient Floor - Provider: Peggy Ledesma RN)1601 (Paused - Provider: Cristóbal Becerra RN)1602 (Paused - Provider: Cristóbal Becerra RN)1612 (Restarted - Provider: Cristóbal Becerra RN)1645 (Stop Bag - Provider: Cristóbal Becerra RN) Continuous Medication Order 05/13/2025 05/14/2025 05/15/2025 sodium chloride 0.9 % infusion (CANCELED) 75 mL/hr, intravenous, Continuous, Starting on 05/13/25 at 1450, Scheduling/ADT 1727 (New Bag - Provider: Shaista Cooley RN)1833 (Rate/Dose Verify - Provider: Cristóbal Becerra RN)183 (Rate/Dose Verify - Provider: Cristóbal Becerra RN)2029 (Paused - Provider: Migue Douglas RN)2033 (Restarted - Provider: Migue Douglas RN)2040 (Stop Bag - Provider: Migue Douglas RN)2042 (Stop Bag - Provider: Genoveva Medley RN - Comment: loss of IV access)2145 (New Bag - Provider: Genoveva Medley RN) 0732 (Stop Bag - Provider: Migue Douglas RN)0732 (New Bag - Provider: Migue Douglas RN)0910 (Stop Bag - Provider: Migue Douglas RN)1224 (New Bag - Provider: Migue Douglas RN)1333 (Rate/Dose Verify - Provider: Migue Douglas RN)1525 (Rate/Dose Verify - Provider: Migue Douglas RN) PRN Medication Order 05/13/2025 05/14/2025 05/15/2025 acetaminophen (TYLENOL) tablet 650 mg 650 mg, oral, Every 4 hours PRN, mild pain - pain scale 1-3, temperature greater than 38 C, headaches, Temperature greater than 38.3 C, Starting on 05/13/25 at 1445, Scheduling/ADT, [Warning: Total Acetaminophen not to exceed more than 4 grams (4000 mg) in 24 hours] 2032 (Given - Provider: Genoveva Medley RN) calcium gluconate 3,000 mg in sodium chloride 0.9 % 100 mL IVPB 3,000 mg, intravenous, at 43.3 mL/hr, Administer over 3 Hours, As needed, ionized calcium 3.5 to 3.9 mg/dL, Starting on Wed05/14/25 at 1011, IV Administration of calcium via a central or deep vein preferred. Avoid administration in small hand veins VESICANT (RED) calcium gluconate 4,000 mg in sodium chloride 0.9 % 250 mL IVPB 4,000 mg, intravenous, at 72.5 mL/hr, Administer over 4 Hours, As needed, ionized calcium 3.4 mg/dL or less, Starting on Wed05/14/25 at 1011, IV administration of calcium via a central or deep vein is preferred. Avoid administration in small hand veins. VESICANT (RED) calcium gluconate IVPB 2000 mg/100 mL (20 mg/mL premix) 2,000 mg, intravenous, at 50 mL/hr, Administer over 2 Hours, As needed, ionized calcium 4 to 4.3 mg/dL, Starting on 05/14/25 at 1011, IV Administration of calcium via a central or deep vein preferred. Avoid administration in small hand veins VESICANT (RED) dextrose (GLUTOSE) 40 % gel 15 g 15 g, oral, As needed, low blood sugar, blood glucose less than 70 mg/dL, Starting on 05/13/25 at 1445, Scheduling/ADT, If patient conscious and taking PO. If blood glucose is not greater than 70 mg/dL after initial treatment, repeat treatment. dextrose 5 % (D5W) infusion 100 mL/hr, intravenous, Continuous PRN, blood glucose less than 70 mg/dL, Starting on 05/13/25 at 1445, Scheduling/ADT, Use immediately following dextrose 50% or [...] or NPO with IV access, Starting on 05/13/25 at 1445, Scheduling/ADT, Push over 1-3 minutes STAT. If [...] or NPO without IV access., Starting on 05/13/25 at 1445, Scheduling/ADT, If conscious and not NPO, immediately [...] level 0.45 to 0.5 mmol/L., Starting on Wed05/14/25 at 1011, Recheck magnesium level 4 hours after infusion complete. With each magnesium result continue the replacement orders as needed. 1224 (New Bag - Provider: Migue Douglas, GABBY)1424 (Stop Bag - Provider: Migue Douglas, GABBY) magnesium sulfate IVPB 4000 mg/100 mL in iso-osmotic water (40 mg/mL premix) 4,000 mg, intravenous, at 25 mL/hr, Administer over 240 Minutes, As needed, Magnesium level 1.6 mg/dL or less, or Ionized Magnesium level 0.44 mmol/L or less, Starting on Wed05/14/25 at 1011, Recheck magnesium level 4 hours after infusion complete. With each magnesium result continue the replacement orders as needed. ondansetron (PF) (ZOFRAN) injection 4 mg 4 mg, intravenous, Every 6 hours PRN, nausea, vomiting, Starting on Wed05/13/25 at 1445, Scheduling/ADT, Intravenous administration preferred to be given over 2-5 minutes. potassium chloride (K-TAB,KLOR-CON) CR tablet 30-50 mEq(Linked Group 2) 30-50 mEq, oral, As needed, Potassium Supplementation, Starting on Wed05/14/25 at 1011, Progress to oral potassium replacement when patient [...] 20 mEq/15 mL solution 30-50 mEq(Linked Group 2) 30-50 mEq, oral, As needed, Potassium Supplementation, Starting on Wed05/14/25 at 1011, Progress to oral potassium replacement when patient [...] mL in water (0.1 mEq/mL premix)(Linked Group 2) 10 mEq, intravenous, at 100 mL/hr, Administer over 60 Minutes, As needed, POTASSIUM REPLACEMENT, Starting on Wed05/14/25 at 1011, IV if unable to use oral/enteral with [...] Every 12 hours PRN, constipation, Starting on Wed05/13/25 at 1445, Scheduling/ADT sod phos di, mono-K phos mono (K-PHOS NEUTRAL) 250 mg tablet 2 tablet(Linked Group 3) 2 tablet, oral, As needed, for phosphorus level 2.3 mg/dL or less., Starting on Wed05/14/25 at 1011, If dose administered, recheck phosphorus level 4 hours after last dose. Look-alike/sound-alike medication - verify indication for use. Give with a full glass of water. sodium chloride 0.9 % flush 3 mL 3 mL, intravenous, As needed, line care, before and after each intermittent use, Starting on Wed05/13/25 at 1034 0900 (Given - Provider: Migue Douglas RN) sodium chloride 0.9 % flush bag 25 mL, intravenous, at 100 mL/hr, Administer over 15 Minutes, As needed, line care, line care after IVPB administration, Starting on Wed05/13/25 at 1445, Scheduling/ADT sodium chloride 0.9 % infusion 20 mL/hr, intravenous, Continuous PRN, to maintain patency of lines, Starting on Wed05/13/25 at 1445, Scheduling/ADT sodium phosphate 20 mmol in sodium chloride 0.9 % 250 mL IVPB(Linked Group 3) 20 mmol, intravenous, at 42.8 mL/hr, Administer over 6 Hours, As needed, for phosphorus level 2.3 mg/dL or less, Starting on Wed05/14/25 at 1011, Administer over 6 hours via dedicated line (peripheral line). If administered, recheck phosphorus level 4 hours after infusion complete. traMADoL (ULTRAM) tablet 50 mg 50 mg, oral, Every 6 hours PRN, severe pain - pain scale 7-10, moderate pain - pain scale 4-6, Starting on Wed05/14/25 at 0138, Look-alike/sound-alike medication - verify indication for use. 0202 (Given - Provider: Genoveva Medley RN) Linked Groups Order Group 1: piperacillin-tazobactam (ZOSYN) IVPB 4.5 g/100 mL in iso-osmotic dextrose (45 mg/mL premix) (COMPLETED)Jump to med 4.5 g, intravenous, at 200 mL/hr, Administer over 0.5 Hours, Once, On Wed05/13/25 at 1110, For 1 dose, Administer piperacillin/tazobactam before vancomycin as long as this does not significantly delay start of antibiotics., Indication: Other, Specify: Unknown Source And vancomycin (VANCOCIN) 1,750 mg in sodium chloride 0.9 % 500 mL IVPB W/ADAPTER (COMPLETED)Jump to med 1,750 mg (rounded from 1,714 mg = 20 mg/kg 85.7 kg), intravenous, at 250 mL/hr, Administer over 120 Minutes, Once, On Wed05/13/25 at 1140, For 1 dose, Administer vancomycin after piperacillin/tazobactam as long as this does not significantly delay start of antibiotics For Vial-2-Bag: Attach bag and vial to adapter - Use immediately after activating; dissolve drug prior to administration., Indication: Other, Specify: Unknown Source Group 2: potassium chloride (K-TAB,KLOR-CON) CR tablet 30-50 mEqJump to med 30-50 mEq, oral, As needed, Potassium Supplementation, Starting on Wed05/14/25 at 1011, Progress to oral potassium replacement when patient [...] oral, As needed, Potassium Supplementation, Starting on Wed05/14/25 at 1011, Progress to oral potassium replacement when patient [...] Minutes, As needed, POTASSIUM REPLACEMENT, Starting on Wed05/14/25 at 1011, IV if unable to use oral/enteral with [...] mEq over a minimum of 1 hour. Group 3: sodium phosphate 20 mmol in sodium chloride 0.9 % 250 mL IVPBJump to med 20 mmol, intravenous, at 42.8 mL/hr, Administer over 6 Hours, As needed, for phosphorus level 2.3 mg/dL or less, Starting on Wed05/14/25 at 1011, Administer over 6 hours via dedicated line (peripheral line). If administered, recheck phosphorus level 4 hours after infusion complete. Or sodium phosphate 20 mmol in sodium chloride 0.9 % 100 mL IVPB (CANCELED) 20 mmol, intravenous, at 26.7 mL/hr, Administer over 4 Hours, As needed, for phosphorus level 2.3 mg/dL or less., Starting on Wed05/14/25 at 1011, Administer over 4 hours via dedicated line (central line). If administered, recheck phosphorus level 4 hours after infusion complete. Infuse using central line access. Or sod phos di, mono-K phos mono (K-PHOS NEUTRAL) 250 mg tablet 2 tabletJump to med 2 tablet, oral, As needed, for phosphorus level 2.3 mg/dL or less., Starting on Wed05/14/25 at 1011, If dose administered, recheck phosphorus level 4 hours after last dose. Look-alike/sound-alike medication - verify indication for use. Give with a full glass of water. Goals (unrecognized section and content) Goals may be documented in a n alternate section FOR RECORDS PERTAINING TO PATIENTS WHO ARE [...] BE BASED ON THE PRIMARY CLINICAL RECORDS. [facility]. provides no warranty or guarantee of the accuracy or completeness of information in this document.
--- NOTE | 2025-06-30 14:07 | ECG_ITS ---
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 Measurements Intervals [place] Rate: 103 P: 65 IN: 150 QRS: -10 QRSD: 130 T: 123 QT: 376 QTc: 436 Interpretive Statements 1120 Sinus tachycardia 2550 Left bundle branch block 9150 abnormal ECG Compared to ECG 06/25/2025 12:57:42 Sinus rhythm no longer present Electronically Signed On 06-30-2025 15:21:32 EDT by HANNAH CHEN M.D.
--- NOTE | 2025-06-30 14:07 | XR_ITS ---
The [address] [address] Patient Name: TERESA GOODWIN MRN: [id number] date: 1945 Sex: F Assigned Patient Location: ED.MAIN Current Patient Location: ED.MAIN Accession/Order Number: [id number] Exam Date: 06/30/2025 14:59 Report Date: 06/30/2025 14:59 At the request of: RICKEY VIDAL MD Procedure: XR chest 1V Single view chest: CLINICAL HISTORY: Weakness COMPARISON: Chest 10/04/2025 FINDINGS: Heart and mediastinal structures appear unchanged. Lungs are clear. No free air. XR/XR chest 1V IMPRESSION: NO ACUTE FINDINGS. Impression dictated by: Devin Khan Jr.OAlison 06/30/2025 2:59 PM Dictation Location: [place] [address] Electronically authenticated by: [id number] Y Date: 06/30/2025 14:59
--- NOTE | 2025-06-30 14:08 | ED.GENADUL1 ---
HPI HPI - General Adult General Chief complaint: Nausea/Vomiting/Diarrhea Stated complaint: NAUSEA & VOMITING Time Seen by Provider: 06/30/25 13:58 Mode of arrival: ambulance History of Present Illness HPI narrative: 80-year-old female presents because she is not taking her Levaquin and she has been nauseous. The patient tells me that she does not really know why she is here. Apparently her daughter called the paramedics because the patient had been diagnosed with UTI and has not been taking her Levaquin. The patient states it makes her nauseous. She does not complain of abdominal pain or back pain or fever. 5:45 PM the patient's daughter has now arrived. She reports her concern of behavior issues. The patient will often do things such as take off her pull-up for no apparent reason and will not explain why. The daughter states that the patient does this at home but does not do it in the hospital. She is requesting help with the patient's behavior issues. Related Data Home Medications ?Medication ?Instructions ?Recorded ?Confirmed clopidogrel 75 mg tablet 75 mg PO QDAY 09/30/23 06/25/25 gabapentin 300 mg capsule 300 mg PO Q12H 09/30/23 06/25/25 letrozole 2.5 mg tablet 2.5 mg PO Q24H 09/30/23 06/25/25 pantoprazole 40 mg tablet,delayed 40 mg PO QDAY 09/30/23 06/25/25 release sertraline 100 mg tablet 100 mg PO QAM 09/30/23 06/25/25 metoprolol succinate 25 mg 25 mg PO DAILY 02/27/24 06/25/25 tablet,extended release 24 hr insulin lispro 100 unit/mL 12 unit subcut TIDWM 04/06/24 06/25/25 subcutaneous pen blood-glucose sensor (Dexcom G7 06/25/25 06/25/25 Sensor device) furosemide 20 mg tablet 20 mg PO .QD 06/25/25 06/25/25 mirtazapine 7.5 mg tablet 7.5 mg PO DAILY 06/25/25 06/25/25 trazodone 100 mg tablet 100 mg PO .QHS 06/25/25 06/25/25 Previous Rx's ?Medication ?Instructions ?Recorded aspirin 81 mg capsule 81 mg PO DAILY #30 caps 02/28/24 atorvastatin 20 mg tablet 20 mg PO QPM #30 tabs 02/28/24 insulin detemir U-100 100 unit/mL 20 unit (0.2 mL) subcut QPM #15 mL 04/11/24 (3 mL) subcutaneous pen (Levemir FlexPen) amoxicillin 500 mg-potassium 1 tab PO BID #14 tabs 06/27/25 clavulanate 125 mg tablet (Augmentin) levofloxacin 250 mg tablet 250 mg PO DAILY #7 tabs 06/29/25 Allergies Allergy/AdvReac Type Severity Reaction Status Date / Time No Known Drug Allergies Allergy Verified 06/25/25 12:51 Opioid HPI Opioid Management Most Recent Opioid Data: Last Pain Scale 5 06/25/25, 18:14 Last Pain Intensity 2 04/07/24, 10:58 Last Pain Assessment 06/25/25, 16:36 Last MAR Pain Assessment 06/25/25, 18:14 Last ORT Total Score 0 06/25/25, 16:36 Last ORT Risk Category Low Risk 06/25/25, 16:36 Review of Systems ROS Narrative A ten point review of systems is negative except as noted above. [facility] Medical History (Updated 06/30/25 @ 17:52 by Israel Maravilla MD) Stage 4 chronic kidney disease ?N18.4 - Chronic kidney disease, stage 4 (severe) (ICD-10) UTI (urinary tract infection) ?N39.0 - Urinary tract infection, site not specified (ICD-10) Acute UTI ?N39.0 - Urinary tract infection, site not specified (ICD-10) H/O malignant neoplasm of female breast ?Z85.3 - Personal history of malignant neoplasm of breast (ICD-10) Aortic stenosis ?I35.0 - Nonrheumatic aortic (valve) stenosis (ICD-10) Arthritis ?M19.90 - Unspecified osteoarthritis, unspecified site (ICD-10) Asthma ?J45.909 - Unspecified asthma, uncomplicated (ICD-10) Encephalitis ?G04.90 - Encephalitis and encephalomyelitis, unspecified (ICD-10) Metastasis to bone ?C79.51 - Secondary malignant neoplasm of bone (ICD-10) Peptic ulcer disease ?K27.9 - Peptic ulcer, site unspecified, unspecified as acute or chronic, without hemorrhage or perforation (ICD-10) TIA (transient ischemic attack) ?G45.9 - Transient cerebral ischemic attack, unspecified (ICD-10) CHELSEA (obstructive sleep apnea) ?G47.33 - Obstructive sleep apnea (adult) (pediatric) (ICD-10) PVD (peripheral vascular disease) ?I73.9 - Peripheral vascular disease, unspecified (ICD-10) Lumbar spondylosis ?M47.816 - Spondylosis without myelopathy or radiculopathy, lumbar region (ICD-10) Incontinence ?R32 - Unspecified urinary incontinence (ICD-10) CKD (chronic kidney disease) stage 3, GFR 30-59 ml/min ?N18.30 - Chronic kidney disease, stage 3 unspecified (ICD-10) Breast CA ?C50.919 - Malignant neoplasm of unspecified site of unspecified female breast (ICD-10) CAD (coronary artery disease) ?I25.10 - Atherosclerotic heart disease of [place] coronary artery without angina pectoris (ICD-10) Depression ?F32.A - Depression, unspecified (ICD-10) GERD (gastroesophageal reflux disease) ?K21.9 - Gastro-esophageal reflux disease without esophagitis (ICD-10) Hypertension ?I10 - Essential (primary) hypertension (ICD-10) Diabetes ?E11.9 - Type 2 diabetes mellitus without complications (ICD-10) Surgical History S/P CAN FEEDER shunt ?Z98.2 - Presence of cerebrospinal fluid drainage device (ICD-10) H/O heart artery stent ?Z95.5 - Presence of coronary angioplasty implant and graft (ICD-10) History of ventriculoperitoneal shunting ?Z92.89 - Personal history of other medical treatment (ICD-10) History of mastectomy ?Z90.10 - Acquired absence of unspecified breast and nipple (ICD-10) H/O lumpectomy ?Z98.890 - Other specified postprocedural states (ICD-10) S/P balloon mitral valvuloplasty ?Z98.890 - Other specified postprocedural states (ICD-10) S/P mitral valve replacement with bioprosthetic valve ?Z95.3 - Presence of xenogenic heart valve (ICD-10) Family History Other Family history of CHF (congestive heart failure) Family history of diabetes mellitus Family history of myocardial infarction Social History Within the past year, how often did you have a drink containing alcohol: never Score interpretation: A score less than 3 is consistent with normal alcohol consumption. 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 Known occupational exposures/hazards: No Highest level of school completed/degree received: high school graduate Do you want help with school or training: No Are you now , , , , never or living with a partner: never In a typical week, how many times do you talk on the telephone with family, friends, or neighbors: 3 or more times per week How often do you get together with friends or relatives: never How often do you attend adventist or worship services: 4 or more times per year Do you belong to any clubs or organizations such as adventist groups unions, [employer] or athletic groups, or school groups: no Total score: 2 Score interpretation: A score of greater than or equal to 2 indicates the lowest level of social isolation. Little interest or pleasure in doing things: not at all Feeling down, depressed, or hopeless: not at all Feel stressed/tense/nervous/anxious/difficulty sleeping: not at all Due to disability, difficulty making decisions: No Do you think of yourself as: straight/heterosexual Gender Identity: female Exam Narrative Exam Narrative: Nurses note and vital signs reviewed and patient is not hypoxic. General: The patient appears well and in no apparent distress. Patient is resting comfortably on cart. Skin: Warm, dry, no pallor noted. There are several excoriations on her legs and her right arm Head: Normocephalic, atraumatic Eye: Normal conjunctiva, no drainage Ears, Nose, Mouth, and Throat: oral mucosa is moist. Nares patent. Cardiovascular: Regular Rate and Rhythm Respiratory: Patient is in no distress, no accessory muscle use, lungs are clear to auscultation, no wheezing, rales or rhonchi Back: non-tender GI: Normal bowel sounds, no tenderness to palpation, no masses appreciated. No rebound, guarding, or rigidity noted. Musculoskeletal: The patient has no evidence of calf tenderness, symmetrical pulses noted bilaterally Neurological: A&O, normal speech Psychiatric: Cooperative Constitutional Vital Signs, click to edit/add: Last Vital Signs Temp 98.5 F 06/30/25 13:51 Pulse 87 06/30/25 16:20 Resp 17 06/30/25 16:20 BP 142/71 H 06/30/25 15:30 Pulse Ox 94 L 06/30/25 16:20 O2 Del Method Room Air 06/30/25 13:51 Course Vital Signs Vital signs: Vital Signs Temperature 98.5 F 06/30/25 13:51 Pulse Rate 99 H 06/30/25 13:51 Respiratory Rate 18 06/30/25 13:51 Blood Pressure 117/66 06/30/25 13:51 Pulse Oximetry 88 L 06/30/25 13:51 Oxygen Delivery Method Room Air 06/30/25 13:51 Temperature 98.5 F 06/30/25 13:51 Pulse Rate 87 06/30/25 16:20 Respiratory Rate 17 06/30/25 16:20 Blood Pressure 142/71 H 06/30/25 15:30 Pulse Oximetry 94 L 06/30/25 16:20 Oxygen Delivery Method Room Air 06/30/25 13:51 Medical Decision Making MDM Narrative Medical decision making narrative: Medical workup is negative. No evidence of UTI. Mental health services is contacted and follow-up will be arranged. Differential Diagnosis Differential Diagnosis: UTI, dehydration, behavior disorder Lab Data Lab results reviewed: Yes I reviewed the patient's lab results Labs: Lab Results 06/30/25 06/30/25 Range/Units 14:00 16:10 WBC 7.9 (4.0-11.0) 10^3/uL RBC 4.10 L (4.20-5.40) 10^6/uL Hgb 10.9 L (12.0-16.0) g/dL Hct 34.1 L (36.0-48.0) % MCV 83.2 (81.0-99.0) fL MCH 26.6 L (26.7-34.0) pg MCHC 32.0 (29.9-35.2) g/dL RDW 16.3 H (11.0-15.0) % Plt Count 434 (150-450) 10^3/uL MPV 9.6 (9.5-13.5) fL Neut % (Auto) 80.5 H (43.0-75.0) % Lymph % (Auto) 12.7 L (20.5-60.0) % Coles % (Auto) 5.5 (1.7-12.0) % Eos % (Auto) 0.3 L (0.9-7.0) % Baso % (Auto) 0.5 (0.2-2.0) % Neut # (Auto) 6.3 (1.4-6.5) 10^3/uL Lymph # (Auto) 1.0 L (1.2-3.8) 10^3/uL Coles # (Auto) 0.4 (0.3-0.8) 10^3/uL Eos # (Auto) 0.0 (0.0-0.7) 10^3/uL Baso # (Auto) 0.0 (0.0-0.1) 10^3/uL Abs Immat Gran (auto) 0.04 H (0.00-0.03) 10^3/uL Imm/Tot Granulo (auto) 0.5 (0.0-0.5) % Sodium 135 L (136-145) mmol/L Potassium 4.1 (3.5-5.1) mmol/L Chloride 97 L (98-107) mmol/L Carbon Dioxide 24.6 (21.0-32.0) mmol/L Anion Gap 17.5 BUN 19.0 H (7.0-18.0) mg/dL Creatinine 1.40 H (0.55-1.02) mg/dL Est GFR ( Amer) 44 L (>=60 mL/min/1.73m^2) Est GFR (Non-Af Amer) 36 L (>=60 mL/min/1.73m^2) BUN/Creatinine Ratio 13.6 Glucose 187 H (74-106) mg/dL Calcium 10.3 H (8.5-10.1) mg/dL Urine Color Lt. yellow (YELLOW) Urine Clarity Clear (CLEAR) Urine pH 5.5 (5.0-9.0) Ur Specific [place] 1.025 (1.005-1.025) Urine Protein 30 A (NEG/TRACE) mg/dL Urine Glucose (UA) Negative (NEGATIVE) mg/dL Urine Ketones >=80 A (NEGATIVE) mg/dL Urine Occult Blood Negative (NEGATIVE) Urine Nitrite Negative (NEGATIVE) Urine Bilirubin Moderate A (NEGATIVE) Urine Urobilinogen 0.2 (0.2-1.0) EU/dL Ur Leukocyte Esterase Negative (NEGATIVE) Urine RBC 0-2 (0-2) #/HPF Urine WBC None seen (NONE SEEN) #/HPF Ur Squamous Epith Cells Few A (NONE/RARE) #/LPF Urine Crystals None seen (None Seen) #/HPF Urine Bacteria Trace A (NONE SEEN) #/HPF Urine Casts None seen (NONE SEEN) #/LPF Urine Mucus None seen (NONE SEEN) Ur Culture Indicated? No Imaging Data Chest x-ray: Radiologist's impression: ITS Impressions Chest X-Ray 06/30/25 14:07 IMPRESSION: NO ACUTE FINDINGS. Impression dictated by: Jorge Luis Carter Jr., D.O. 06/30/2025 2:59 PM Dictation Location: [place] [id number] Electronically authenticated by: [id number] Y Date: 06/30/2025 14:59 ECG Data Attestation: I personally reviewed and interpreted this ECG as follows: (EKG on my interpretation shows sinus rhythm with a rate of 103. Left bundle branch block present.) Discharge Plan Discharge Chief Complaint: Nausea/Vomiting/Diarrhea Clinical Impression: Behavior disorder Patient Disposition: Home, Self-Care Time of Disposition Decision: 17:51 Condition: Good Mode of Transportation: Private Vehicle Prescriptions / Home Meds: No Action sertraline 100 mg tablet 100 mg PO QAM clopidogrel 75 mg tablet 75 mg PO QDAY pantoprazole 40 mg tablet,delayed release (DR/EC) 40 mg PO QDAY gabapentin 300 mg capsule 300 mg PO Q12H letrozole 2.5 mg tablet 2.5 mg PO Q24H metoprolol succinate 25 mg tablet extended release 24 hr 25 mg PO DAILY aspirin 81 mg capsule 81 mg PO DAILY Qty: 30 0RF atorvastatin 20 mg tablet 20 mg PO QPM Qty: 30 0RF insulin lispro 100 unit/mL insulin pen 12 unit SUBCUT TIDWM Levemir FlexPen 100 unit/mL (3 mL) Insulin Pen 20 unit subcut QPM Qty: 15 0RF furosemide 20 mg tablet 20 mg PO .QD mirtazapine 7.5 mg tablet 7.5 mg PO DAILY (DME) MineWhat G7 Sensor Device MISCELLANEOUS trazodone 100 mg tablet 100 mg PO .QHS amoxicillin-pot clavulanate [Augmentin] 500-125 mg tablet 1 tab PO BID Qty: 14 0RF levofloxacin 250 mg tablet 250 mg PO DAILY Qty: 7 0RF Print Language: Kinyarwanda Instructions: Cognitive Behavioral Therapy (ED) Additional Instructions: Follow-up with mental health services Referrals: PAM STINSON [Primary Care Provider, Unknown] - 1 week
[2025-06-30 14:17] LABS: Hematocrit 34.1 % (36.0-48.0); Hemoglobin 10.9 g/dL (12.0-16.0); Immature Granulocytes Abs Auto 0.04 10^3/uL (0.00-0.03); Immature Granulocytes Pct Auto 0.5 % (0.0-0.5); Lymphocytes Absolute Auto 1.0 10^3/uL (1.2-3.8); Mean Corpuscular HGB Conc 32.0 g/dL (29.9-35.2); Mean Corpuscular Hemoglobin 26.6 pg (26.7-34.0); Mean Corpuscular Volume 83.2 fL (81.0-99.0); Platelet Count 434 10^3/uL (150-450); Red Blood Count 4.10 10^6/uL (4.20-5.40); White Blood Count 7.9 10^3/uL (4.0-11.0)
[2025-06-30 14:26] LABS: Anion Gap 17.5; Blood Urea Nitrogen 19.0 mg/dL (7.0-18.0); Calcium 10.3 mg/dL (8.5-10.1); Carbon Dioxide 24.6 mmol/L (21.0-32.0); Chloride 97 mmol/L (98-107); Estimated GFR (African America 44 (>=60 mL/min/1.73m^2); Estimated GFR (Non-African Ame 36 (>=60 mL/min/1.73m^2); Glucose 187 mg/dL (74-106); Potassium 4.1 mmol/L (3.5-5.1); Sodium 135 mmol/L (136-145)
[2025-06-30] MEDS: 0.9 % SODIUM CHLORIDE 1,000 ML 1000 ML IV (14:36)
[2025-06-30 16:17] LABS: Glucose Urine UA NEGATIVE (NEGATIVE)
[2025-06-30 16:28] LABS: Cast Seen? NONE SEEN #/LPF (NONE SEEN); Crystals Seen? None Seen #/HPF (None Seen)
[2025-06-30 16:29] LABS: Urine Culture Indicated NO
== END 2025-06-30 18:29 | disposition home or self-care (01) ==
PROVIDERS: Emergency Provider Emergency Medicine; PCP Nurse Practitioner
DX: F91.9 Conduct disorder, unspecified (principal); R11.0 Nausea; E11.9 Type 2 diabetes mellitus without complications
CPT/HCPCS: 36415; 51702; 71045; 80048; 81001; 85025; 93005; 99285

== ENCOUNTER 2025-08-10 16:40 | Outpatient (REF) | payer MEDICARE, MEDICAID, SELFPAY ==
[2025-08-10 16:49] LABS: Hemoglobin 7.1 g/dL (12.0-16.0); Immature Granulocytes Abs Auto 0.10 10^3/uL (0.00-0.03); Immature Granulocytes Pct Auto 1.3 % (0.0-0.5); Lymphocytes Absolute Auto 1.7 10^3/uL (1.2-3.8); Mean Corpuscular HGB Conc 31.0 g/dL (29.9-35.2); Mean Corpuscular Hemoglobin 28.9 pg (26.7-34.0); Mean Corpuscular Volume 93.1 fL (81.0-99.0); Platelet Count 245 10^3/uL (150-450); Red Blood Count 2.46 10^6/uL (4.20-5.40); White Blood Count 8.0 10^3/uL (4.0-11.0)
--- OUTSIDE RECORDS SUMMARY | 2025-08-10 16:50 | XMS_ITS | CCD ---
Author Organization [facility] Care Team Providers Care Inpatient Services Director Name Role Phone Michael Duarte Primary Care Provider UnavailLAKESHIA Kramer Referring Unavailable MICHAEL DUARTE Primary Care Unavailable ELIZABTEH TOMLINSON Referring Unavailable MICHAEL DUARTE Primary Care Unavailable PAM STINSON Primary Care Unavailable ASHLEE, DR PADILLA Attending Unavailable ASHLEE, DR PADILLA Consulting Unavailable ASHLEE, DR PADILLA Admitting Unavailable COREY, DR GIOVANNY Tuttle Consulting Unavailable Vale Contreras Admitting Unavailable Vale Contreras Attending Unavailable GIOVANNY LOGAN Referring Unavailable GIOVANNY LOGAN Primary Care Unavailable CasiMichael stallworth Primary Care Provider Unavaildeshawn Stinson SMUTTER - ARCHITECT NAVAL, Pam De La Rosa Primary Care Prov ider JEREMIAH, AMEER Referring Unavailable MICHAEL DUARTE Primary Care Unavailable JEREMIAH, AMEER Admitting Unavailable JEREMIAH, AMEER Attending Unavailable PHUONG BLAIR Referring Unavailable PAM STINSON Primary Care Unavailable PHUONG BLAIR Referring Unavailable PAM STINSON Primary Care Unavailable JEREMIAH, AMEER Attending Unavailable JEREMIAH, AMEER Referring Unavailable MICHAEL DUARTE Primary Care Unavailable KALARA, AMEER Attending Unavailable JEREMIAH, AMEER Referring Unavailable MICHAEL DAURTE Primary Care Unavailable NOLAN JHA Referring Unavailable MICHAEL DUARTE Primary Care Unavailable JEREMIAH, AMEER Referring Unavailable MICHAEL DUARTE Primary Care Unavailable JEREMIAH, AMEER Admitting Unavailable JEREMIAH, AMEER Attending Unavailable NING CALDERA Consulting Unavailable MICHAEL DUARTE Primary Care Unavailable CHARMAINE BLAND Consulting Unavailable MARITZA MIDDLETON Attending Unavailable MARITZA MIDDLETON Admitting Unavailable Stinson SMUTTER-ARCHITECT NAVAL, Pam J Primary Care Provid er Stinson SMUTTER-ARCHITECT NAVAL, Pam J Primary Care Provid er Stinson SMUTTER-ARCHITECT NAVAL, Pam J Primary Care Provid er Al Bessie RAMIREZ, Kendall Unavailable Unavailabl Sarai Whaley Attending Unavailable Al Bessie, Kendall Attending Unavailable Al Bessie, Kendall Referring Unavailable Al Bessie, Kendall Attending Unavailable Stinson SMUTTER-ARCHITECT NAVAL, Pam Estrella Primary Care Provid er Bhavik La MD, Kendall Unavailable Unavailabl e Stinson SMUTTER-ARCHITECT NAV[employer], Pam Estrella Primary Care Provid er Stinson SMUTTER-ARCHITECT NAV[employer], Pam J Primary Care Provid er Isaac SMUTTER-ARCHITECT NAVAL, Vj Cohen Primary Care Provider Unallocated , Noms Provider Primary Care Provi michele PAM STINSON Attending Unavailable STINSON PAM J Referring Unavailable STINSON, PAM J Primary Care Unavailable STINSONDEJAPAM J Attending Unavailable STINSONDEJAPAM J Referring Unavailable STINSON, PAM J Primary Care Unavailable STINSONDEJA NAMERIE J Attending Unavailable STINSONDEJAPAM J Referring Unavailable STINSON, PAM J Primary Care Unavailable STINSONBRAYDON NAME J Attending Unavailable STINSONDEJAPAM J Referring Unavailable STINSON, PAM J Primary Care Unavailable STINSONDEJAPAM J Attending Unavailable STINSON, PAM J Referring Unavailable STINSON, PAM J Primary Care Unavailable VJ GRAY Attending Unavailable MICHAEL JOINER Referring Unavailable VJ GRAY Primary Care Unavailable Ra Maravilla DO Attending Provider Ra Maravilla Attending Unavailable Ra Maravilla Admitting Unavailable LEXX, FELIX T Referring Unavailable VJ GRAY Primary Care Unavailable LEXX, FELIX Mendoza Attending Unavailable LEXX, TYLERQIYYA T Admitting Unavailable MELY LARIOS Attending Unavailable DEJA STINSONERIKyara De La Rosa Primary Care Unavailable RODRIGUEZ, CHRISTINE U Admitting [...] Care Unavailable SARAI CASAS Attending Unavailab le STINSON, PAM J Primary Care Unavailable MARRY DOE [...] Care Unavailable RADHA PRYOR Attending Unavailable VJ GARY Primary Care Unavailable LESLI, MUHAMID M Admitting Unavailable LESLI, MUHAMID M Attending Unavailable VJ GRAY Primary Care Unavailable BEN THIOBDEAUX Attending Unavailable VJ GRAY Primary Care Unavailable RANDY ORNELAS Consulting Unavailable LESLI, MUHAMID M Admitting Unavailable LESLI, MUHAMID M Attending Unavailable JOIE ECHAVARRIA Attending Unavailable JOIE ECHAVARRIA Referring Unavailable JOIE ECHAVARRIA Attending Unavailable JOIE ECHAVARRIA Referring Unavailable MARYCARMEN AZAR Admitting Unavailab NAYANA Aragon Referring Unavailable STINSON, PAM Estrella Primary Care Unavailable [facility], [facility] Consulting Unavailable MARIA GUADALUPE CAGLE Attending Unavailable CHRISTA HENRY Consulting Unavailable DELGADO LEAHY Consulting Unavailable CARDIOLOGY, [facility] Consulting Unavailable CHRISTINE RODRIGUEZ Referring Unavailable PAM STINSON Primary Care Unavailable NING HASSAN Referring Unavailable YUHAS, MICHAEL L Primary Care Unavailable YUHAS, MICHAEL L Referring Unavailable YUHAS, MICHAEL L Primary Care Unavailable KENNETH PRYOR Referring Unavailable YUHAS, MICHAEL L Primary Care Unavailable ANA TIDWELL Referring Unavailable YUHAS, MICHAEL L Primary Care Unavailable LEXX JHA Referring Unavailable STINSONPAM NAM Primary Care Unavailable YUHAS, MICHAEL L Referring [...] Unavailable KROTZER, VJ D Primary Care Unavailable RA MARINELLI Attending Unavailable KROTZER, VJ D Referring Unavailable KROTZER, VJ D Primary Care Unavailable RA MARINELLI Admitting Unavailable RA MARINELLI Attending Unavailable KROTZER, VJ D Primary Care Unavailable OVITT, VALE Attending Unavailable OVITT, VALE Referring Unavailable OVITT, VALE Referring Unavailable OVITT, VALE Referring Unavailable CLIFF VIVAR Attending Unavailable OVITT, VALE Attending Unavailable Allergies Allergy Classification Reported Allergen(s) Allergy Type Date of Onset Reaction(s) Facility (1 source) 54040,00 Drug allergy (disorder) 01-23-2020 [facility] Repository Medications Current Medications Medication Drug [...] associated with type 2 diabetes mellitus (CMS-HCC) Take 1 tablet (40 mg total) by [...] without long-term current use of insulin [place] Monitor blood sugars four times daily and as needed 1 each 10/11/2020 Active Start: 10-11-2020 blood-glucose meter [facility] Indications: Controlled type 2 diabetes mellitus with diabetic nephropathy, without long-term current use of insulin [place] Monitor blood sugars four times daily and as needed 1 each 0 10/11/2020 Active busPIRone hydrochloride 5 mg oral tablet (17 sources) Start: 07-04-2025 End: 07-05-2025 take 1 [...] 02/19/2024 Active cholecalciferol 0.05 mg oral tablet (13 sources) Vitamin D Start: 07-19-2025 take 1 [...] 7 tablet 11/12/2024 11/19/2024 Active DEXCOM G7 LINING IRONER misc (13 sources) Start: 07-05-2024 DEXCOM G7 LINING IRONER misc USE DIRECTED TO CONTINUOUSLY MONITOR BLOOD SUGAR 07/05/2024 Active DEXCOM G7 SENSOR device (20 sources) Start: 03-22-2024 DEXCOM G7 SENSOR device CHANGE SENSOR EVERY 10 DAYS, E11.65 03/22/2024 Active docusate sodium 100 mg oral capsule (11 sources) Start: 07-18-2025 take 1 capsule by [...] (Therapy completed) ergocalciferol 1.25 mg oral capsule (11 sources) Provitamin D2 Compound Start: 07-20-2025 take [...] 10/25/2024 Active fluticasone / salmeterol (9 sources) Corticosteroid, beta2-Adrenergic Agonist Start: 2024 take 1 puff(s) by inhalation in the morning fluticasone propion-salmetero L (ADVAIR) 100-50 mcg/dose DISKUS Inhale 1 puff in the morning and 1 puff before bedtime. 60 each 2024 Active furosemide 20 mg oral tablet (20 sources) Loop Diuretic Start: 01-10-2025 End: 05-15-2025 take 1 tablet by mouth once daily furosemide (LASIX) 20 mg tablet Take 1 tablet (20 mg total) by mouth daily. 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 30 capsule 1 07/31/2025 Active Start: 05-14-2025 End: 05-15-2025 take 600 mg [...] 07/02/2025 Discontinued take 1 capsule by mo ut in the morning gabapentin (NEURONTIN) 100 MG capsule Take 100 mg by mouth in the morning and 100 mg in the evening. 0 Active hydroCHLOROthiazide 25 mg oral tablet (20 [...] without long-term current use of insulin [place] INJECT 30 UNITS UNDER THE SKIN NIGHTLY [...] right female breast, unspecified estrogen receptor status ([facility]) TAKE 1 TABLET BY MOUTH EVERY DAY [...] Daily Active loratadine 10 mg oral tablet (12 sources) take 1 tablet by mouth at [...] by mouth 2 times daily. 0 Active mineral oil 1000 mg/ml enema (3 sources) mineral oil (FLE ET) enema Insert into the rectum once. Active mirtazapine 7.5 mg oral tablet (20 sources) Start: 05-14-2025 End: 05-15-2025 take 7.5 mg by mouth once daily 7.5 mg, oral, Nightly, First dose on Wed05/14/25 at 0145 Start: 01-22-2025 End: 07-30-2025 take 1 tablet by mouth once daily mirtazapine (REMERON) 7.5 mg tablet Indications: Insomnia, unspecified type Take 1 tablet (7.5 mg total) by mouth nightly. 90 tablet 1 07/31/2025 Active mupirocin 0.02 mg/mg topical ointment (1 [...] sources) Polyene Antifungal Start: 09-06-2024 nystatin (Mycostatin) 218172 UNIT/GM powder Apply 1 Application topically in [...] Take 1 tablet by mouth Daily Active oxyCODONE hydrochloride 5 mg oral capsule (2 sources) Opioid Agonist take 1 capsule by mouth every four hours as needed for pain oxyCODONE (OXY-IR) 5 mg capsule Take 1 capsule (5 mg total) by mouth every 4 (four) hours as needed for pain. Max Daily Amount: 30 mg Active pantoprazole 40 mg delayed release oral [...] Take before meals. Active polyethylene glycol 3350 06424 mg powder for oral solution (18 sources) Osmotic Laxative Start: 07-18-2025 polyethylene glycol [...] 20 mg oral tablet (1 source) Start: 4 End: 4 take 2 tablets by mouth in the morning predniSONE (DELTASONE) 20 mg tablet Take 2 tablets (40 mg total) by mouth in the morning for 3 days. 6 tablet 08/14/2024 08/17/2024 Active sertraline 100 mg oral tablet (20 sources) Serotonin Reuptake Inhibitor Start: 5 End: 5 take 100 mg by mouth once daily 100 mg, oral, Daily, First dose on Wed07/02/25 at 1815, Look-alike/sound-ali ke medication - verify indication for use. Start: 05-14-2025 End: 05-15-2025 take 100 mg by mouth once daily 100 mg, oral, Daily, First dose on Wed05/14/25 at 0900, Look-alike/sound-alike medication - verify indication for use. Start: 01-28-2025 End: 07-30-2025 take 1 tablet by mouth in the morning sertraline (ZOLOFT) 100 mg tablet Take 1 tablet (100 mg total) by mouth in the morning. 30 tablet 1 07/31/2025 Active Start: 06-05-2024 End: 11-24-2024 take 1 [...] dose on Wed12/07/22 at 1645, Until Discontinued Completed/Discontinued Medications Medication Drug Class(es) Dates Sig [...] 1 mL 02/23/2025 04/04/2025 Active DEXCOM G6 LINING IRONER misc (7 sources) Start: 05-06-2023 End: 03-08-2024 DEXCOM G6 LINING IRONER misc 1 De vice by drain unit route See Admin Instructions. 05/06/2023 03/08/2024 Discontinued (Therapy completed) Start: 05-06-2023 DEXCOM G6 RECE IVER misc 1 Device by drain unit route See Admin Instructions. 0 05/06/2023 Active dextromethorphan hydrobromide 1.5 mg/ml / pyrilamine maleate 1.5 mg/ml oral solution (4 sources) Uncompetitive S-swqbpe-G-aspartate Receptor Antagonist, Sigma-1 Agonist Start: 12-15-2023 End: 03-02-2024 take 5 mL by mouth every eight hours as needed for cough and congestion pyrilamine-dextromethorphan 7.5-7.5 mg/5 mL liquid Indications: Upper respiratory tract infection, unspecified type Take 5 mL by mouth every 8 (eight) hours as needed (cough and congestion). 100 mL 12/15/2023 03/02/2024 Discontinued (Therapy completed) docusate sodium 50 mg / sennosides, retirement 8.6 mg oral tablet (2 sources) Start: [...] the morning. 02/25/2025 05/13/2025 Discontinued (Therapy completed) glucagon (rdna) 1 mg injection (6 sources) Antihypoglycemic Agent Start: 07-02-2025 End: 07-05-2025 [...] 12-10-2022 glucagon (rDNA ) injection 1 mg glucagon (GLUCAG EN DIAGNOSTIC KIT INJ) Inject as directed. Active 150 ml glucose 50 mg/ml inje ction [...] hyperlipidemia associated with type 2 diabetes mellitus ([facility]) Inject 2 Units under the skin 4 [...] level 0.45 to 0.5 mmol/L., Starting on 05/14/25 at 1011, Recheck magnesium level 4 hours [...] than 90). 02/24/2025 05/13/2025 Discontinued (Therapy completed) miscellaneous medical supply misc (7 sources) Start: [...] Active 2 ml ondansetron 2 mg/ml injection (20 sources) Serotonin-3 Receptor Antagonist Start: 07-02-2025 End: [...] Hours, Every 8 hours, First dose on 05/13/25 at 1600, Scheduling/ADT, Start 4 hours after [...] must be reapplied to an alternate site. SITagliptin 50 mg oral tablet (20 sources) [...] stage 3b chronic kidney disease and hypertension ([facility]) Take 1 tablet (50 mg total) by [...] 01-13-2023 Chronic obstructive pulmonary disease and bronchiectasis (17 sources) Chronic obstructive pulmonary disease, unspecified; Translations: [...] coronary artery; Translations: [Atherosclerotic heart disease of [place] coronary artery without angina pectoris] Onset: 10-14-2021 [...] 05-25-2017 01-13-2023 Chronic Diabetes mellitus without complication (20 sources) Type 2 diabetes mellitus without complications; [...] Translations: [Aortic valve disorders] Onset: 10-05-2022 Resolved: 01-10-2025 11-29-2022 Chronic Hypertension with complications and secondary hypertension [...] Resolved: 12-14-2019 07-17-2019 Chronic Nausea and vomiting (20 sources) Intractable nausea and vomiting; Translations: [Nausea with vomiting, unspecified] Onset: 10-11-2024 07-02-2025 Episodic Osteoarthritis (20 sources) Primary gonarthrosis, bilateral; Translations: [Bilateral primary osteoarthritis of knee] Onset: 10-26-2018 10-26-2018 Chronic Other aftercare (1 source) Other alf (current) drug therapy; Translations: [OTH JAIL CURRENT 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] Onset: 04-07-2021 Episodic Other aftercare (1 source) Post-discharge follow-up; Translations: [Encounter for follow-up examination after completed treatment for conditions other than malignant neoplasm] 06-05-2025 Episodic Other bone disease and musculoskeletal deformities (5 sources) Lesion of left thigh bone; Translations: [Disorder of bone, unspecified] Onset: 08-01-2025 08-01-2025 Episodic Other bone disease and musculoskeletal deformities (1 source) Disorder of bone, unspecified; Translations: [Disorder of bone, unspecified] Onset: 08-01-2025 Episodic Other circulatory disease (6 sources) History [...] Onset: 01-18-2025 Chronic Other female genital disorders (18 sources) Mass of uterine adnexa; Translations: [Other specified conditions associated with female genital organs and menstrual cycle] Onset: 07-03-2025 07-03-2025 Episodic Other female genital disorders (2 sources) Other specified conditions associated with female genital organs and menstrual cycle; Translations: [Other specified conditions associated with female genital organs and menstrual cycle] Onset: 07-02-2025 Episodic Other fractures (12 sources) Fracture of pelvis; Translations: [Fracture of [...] 04-11-2024 06-14-2024 Chronic Other nervous system disorders (1 source) Other chronic pain; Translations: [Other chronic pain] Onset: 05-11-2025 Chronic Other nervous system disorders (2 sources) (Idiopathic) normal pressure hydrocephalus; Translations: [(Idiopathic) normal pressure hydrocephalus] Onset: 07-31-2025 Chronic Other nervous system disorders (2 sources) Presence of cerebrospinal fluid drainage device; Translations: [Presence of cerebrospinal fluid drainage device] Onset: 04-05-2025 Chronic Other nervous system disorders (1 source) Tremor, unspecified; Translations: [Tremor, unspecified] Onset: 01-13-2023 Episodic Other nervous system disorders (2 sources) Unspecified abnormalities of gait and mobility; Translations: [Unspecified abnormalities of gait and mobility] Onset: 07-31-2025 Episodic Other non-traumatic joint disorders (19 sources) Hip pain; Translations: [Pain in right [...] Translations: [Chronic rhinitis] 07-16-2025 Chronic Pathological fracture (17 sources) Pathological fracture of proximal end of [...] (1 source) Clouded consciousness Onset: 06-10-2025 Episodic Residual codes; unclassified (2 sources) Other amnesia; Translations: [Other amnesia] Onset: 07-31-2025 Episodic Respiratory failure; insufficiency; arrest (adult) (20 [...] 08-12-2024 Unclassified (1 source) Ill Onset: 08-12-2024 Unclassified (3 sources) Autogenerated Problem Onset: 08-01-2025 08-01-2025 Unclassified (1 source) Post-op Onset: 08-01-2025 Urinary tract infections (20 sources) Acute cystitis [...] 4 08-12-2024 Episodic Deficiency and other anemia (19 sources) Iron deficiency anemia; Translations: [Iron deficiency [...] 5 09-06-2024 Episodic Other aftercare (3 sources) FPC (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; Translations: [JAIL CURRENT USE OF INSULIN] Onset: 1 Episodic [...] Value Interpretation Reference Range Facility BEDSIDE GLUCOSEon 08-06-2025 Glucose [Mass/Vol] 133 mg/dL High 65-99 [facility] Comment on above: Performed By: #### C BCA, CMP, 76066-3 #### [facility] ([id number]) [address], [address] [place] [address] Glucose [Mass/Vol] 113 mg/dL High 65-99 [facility] Comment on above: Performed By: #### C BCA, CMP, 98106-8 #### [facility] ([id number]) [address], [address] [place] [address] TYPE AND SCREENon 08-06-2025 ABO_INTEP O Normal [facility] Comment on above: Performed By: #### C BCA, CMP, 02696-5 #### [facility] ([id number]) [address], [address] [place] [address] RH_INTEP Negative Normal [facility] Comment on above: Performed By: #### C BCA, CMP, 95548-3 #### [facility] ([id number]) [address], [address] [place] [address] 29on 07-31-2025 29 Addended by: STEFFI RODRIGUEZ on: 08/06/2025 08:27 AM Modules accepted: Orders [facility] Follow-Upon 07-31-2025 Follow-Up [id number] Jb Dee 1945 F Date Provider Department Center 07/31/2025 VALE TAMAYO [facility] SURG Second Fl Family History Problem Relation Age of Onset Diabetes Mother Hypertension Father Coronary artery disease Father Family Status - Relation Status Age at Mother Father Level of Service:71389 MO OFFICE/OUTPATIENT ESTABLISHED MOD MDM 30 MIN Reason for Visit and Comments: Follow-up [389665] - Shunt check after MRI [facility] BEDSIDE GLUCOSEon 07-18-2025 Glucose [Mass/Vol] 92 mg/dL Normal 65-99 [facility] Comment on above: Performed By: #### Renita HENSON CMP, 85854-7 #### [facility] ([id number]) [address], [address] [place] [address] CBC WITH AUTO DIFFERENTIALon 07-18-2025 Band form neutrophils/100 WBC (Bld) 1 % Normal [facility] Comment on above: Result Comment: This is an appended report. These results have been appended to a previously preliminary verified report. Performed By: #### Renita HENSON CMP, 97557-5 #### [facility] ([id number]) [address], [address] [place] [address] CELLAVISION DIFFERENTIAL TYPE MANUAL DIFFERENTIAL Normal [facility] Comment on above: Result Comment: This is an appended report. These results have been appended to a previously preliminary verified report. Performed By: #### Renita HENSON CMP, 43244-4 #### [facility] ([id number]) [address], [address] [place] [address] CELLAVISION ELLIPTOCYTES IN BLOOD BY LIGHT MICROSCOPY 1+ Normal [facility] Comment on above: Result Comment: This is an appended report. These results have been appended to a previously preliminary verified report. Performed By: #### Renita HENSON CMP, 18351-9 #### [facility] ([id number]) [address], [address] [place] [address] CELLAVISION EOSINOPHILS ABSOLUTE COUNT (10*3/UL) BY MANUAL COUNT 0.4 10*3/uL Normal 0.0-0.4 [facility] Comment on above: Result Comment: This is an appended report. These results have been appended to a previously preliminary verified report. Performed By: #### Renita HENSON CMP, 87439-0 #### [facility] ([id number]) [address], [address] [place] [address] CELLAVISION EOSINOPHILS PERCENT BY MANUAL COUNT 5 % Normal [facility] Comment on above: Result Comment: This is an appended report. These results have been appended to a previously preliminary verified report. Performed By: #### C [place]IV[place], [facility], 01536-3 #### [facility] ([id number]) [address], [address] [place] [address] CELLAVISION LYMPHOCYTES ABSOLUTE COUNT (10*3/UL) BY MANUAL COUNT 1.6 10*3/uL Normal 1.0-3.5 [facility] Comment on above: Result Comment: This is an appended report. These results have been appended to a previously preliminary verified report. Performed By: #### C [place], [facility], 35122-1 #### [facility] ([id number]) [address], [address] [place] [address] CELLAVISION LYMPHOCYTES RELATIVE PERCENT BY MANUAL COUNT 18 % Normal [facility] Comment on above: Result Comment: This is an appended report. These results have been appended to a previously preliminary verified report. Performed By: #### Renita HENSON [facility], 05705-4 #### [facility] ([id number]) [address], [address] [place] [address] CELLAVISION MONOCYTES ABSOLUTE COUNT (10*3/UL) IN BLOOD BY MANUAL COUNT 0.7 10*3/uL Normal 0.0-0.9 [facility] Comment on above: Result Comment: This is an appended report. These results have been appended to a previously preliminary verified report. Performed By: #### C [place], [facility], 80328-0 #### [facility] ([id number]) [address], [address] [place] [address] CELLAVISION MONOCYTES RELATIVE PERCENT BY MANUAL COUNT 8 % Normal [facility] Comment on above: Result Comment: This is an appended report. These results have been appended to a previously preliminary verified report. Performed By: #### C NATIVIDAD [facility], 33220-2 #### [facility] ([id number]) [address], [address] [place] [address] CELLAVISION MYELOCYTE RELATIVE PERCENT BY MANUAL COUNT 2 % Normal [facility] Comment on above: Result Comment: This is an appended report. These results have been appended to a previously preliminary verified report. Performed By: #### C NATIVIDAD, CMP, #### [facility] ([id number]) [address], [address] [place] [address] CELLAVISION NEUTROPHILS ABSOLUTE COUNT BY MANUAL COUNT 5.9 10*3/uL Normal 1.5-6.6 [facility] Comment on above: Result Comment: This is an appended report. These results have been appended to a previously preliminary verified report. Performed By: #### Renita HENSON CMP, 94738-4 #### [facility] ([id number]) [address], [address] [place] [address] CELLAVISION NEUTROPHILS RELATIVE PERCENT BY MANUAL COUNT 66 % Normal [facility] Comment on above: Result Comment: This is an appended report. These results have been appended to a previously preliminary verified report. Performed By: #### C NATIVIDAD CMP, 01832-3 #### [facility] ([id number]) [address], [address] [place] [address] CELLAVISION POLYCHROMASIA IN BLOOD BY LIGHT MICROSCOPY 1+ Normal [facility] Comment on above: Result Comment: This is an appended report. These results have been appended to a previously preliminary verified report. Performed By: #### Renita HENSON, CMP, 20425-3 #### [facility] ([id number]) [address], [address] [place] [address] Erythrocyte distribution width (RBC) [Ratio] 17.1 % High 11.5-15 [facility] Comment on above: Performed By: #### Renita HENSON, CMP, 57588-9 #### [facility] ([id number]) [address] [place] [address] Hematocrit (Bld) [Volume fraction] 25.0 % Low 35-47 [facility] Comment on above: Performed By: #### C BCA, CMP, #### [facility] ([id number]) [address], [address] [place] [address] Hemoglobin (Bld) [Mass/Vol] 8.4 g/dL Low 11.7-15.5 [facility] Comment on above: Performed By: #### C BCA, CMP, #### [facility] ([id number]) [address], [address] [place] [address] MCH (RBC) [Entitic mass] 28.3 pg Normal 27-34 [facility] Comment on above: Performed By: #### Renita BCA, CMP, #### [facility] ([id number]) [address], [address] [place] [address] MCHC (RBC) [Mass/Vol] 33.8 g/dL Normal 32-36 [facility] Comment on above: Performed By: #### Renita BCA, CMP, #### [facility] ([id number]) [address], [address] [place] [address] MCV (RBC) [Entitic vol] 84 fL Normal 80-100 [facility] Comment on above: Performed By: #### C BCA, CMP, #### [facility] ([id number]) [address], [address] [place] [address] Platelet mean volume (Bld) [Entitic vol] 7.9 fL Normal 7-12 [facility] Comment on above: Performed By: #### C BCA, CMP, #### [facility] ([id number]) [address], [address] [place] [address] Platelets (Bld) [#/Vol] 221 10*3/uL Normal 150-450 [facility] Comment on above: Performed By: #### C BCA, CMP, 32866-8 #### [facility] ([id number]) [address], [address] [place] [address] RBC COUNT 2.97 X10E12/L Low 3.8-5.2 [facility] Comment on above: Performed By: #### C BCA, CMP, 22551-6 #### [facility] ([id number]) [address], [address] [place] [address] WBC (Bld) [#/Vol] 8.8 10*3/uL Normal 4-11 [facility] Comment on above: Performed By: #### C BCA, CMP, 30097-8 #### [facility] ([id number]) [address], [address] [place] [address] COMPREHENSIVE METABOLIC PANE Dickson 07-18-2025 Albumin [Mass/Vol] 2.8 g/dL Low 3.2-5.3 [facility] Comment on above: Performed By: #### C BCA, CMP, 31762-7 #### [facility] ([id number]) [address], [address] [place] [address] ALP [Catalytic activity/Vol] 111 U/L Normal 39-130 [facility] Comment on above: Performed By: #### C BCA, CMP, 06294-0 #### [facility] ([id number]) [address], [address] [place] [address] ALT [Catalytic activity/Vol] U/L Normal <=31 [facility] Comment on above: Performed By: #### C BCA, CMP, 05494-2 #### [facility] ([id number]) [address], [address] [place] [address] Anion gap [Moles/Vol] 5 mmol/L Normal 5-15 [facility] Comment on above: Performed By: #### C BCA, CMP, #### [facility] ([id number]) [address], [address] [place] [address] AST [Catalytic activity/Vol] 21 U/L Normal <=41 [facility] Comment on above: Performed By: #### C BCA, CMP, #### [facility] ([id number]) [address], [address] [place] [address] Bilirubin [Mass/Vol] 0.5 mg/dL Normal 0.3-1.2 [facility] Comment on above: Performed By: #### C BCA, CMP, #### [facility] ([id number]) [address], [address] [place] [address] Calcium [Mass/Vol] 9.3 mg/dL Normal 8.5-10.5 [facility] Comment on above: Performed By: #### C BCA, CMP, #### [facility] ([id number]) [address], [address] [place] [address] Chloride [Moles/Vol] 108 mmol/L Normal 98-109 [facility] Comment on above: Performed By: #### C BCA, CMP, #### [facility] ([id number]) [address], [address] [place] [address] CO2 [Moles/Vol] 27 mmol/L Normal 22-32 [facility] Comment on above: Performed By: #### C BCA, CMP, #### [facility] ([id number]) [address], [address] [place] [address] Creatinine [Mass/Vol] 1.18 mg/dL High 0.40-1.00 [facility] Comment on above: Result Comment: METH OD TRACEABLE TO IDMS STANDARD Performed By: #### C NATIVIDAD CMP, #### [facility] ([id number]) [address], [address] [place] [address] GFR/1.73 sq M.predicted among non-blacks MDRD (S/P/Bld) [Vol rate/Area] 47 mL/min/{1.73_m2} Low >=60 [facility] Comment on above: Result Comment: Repo rted eGFR is based on the CKD-EPI 2020 equation that does not use a race coefficient. Performed By: #### C RUBEN HENSON, #### [facility] ([id number]) [address], [address] [place] [address] Glucose [Mass/Vol] 81 mg/dL Normal 65-99 [facility] Comment on above: Performed By: #### C RUBEN HENSON, #### [facility] ([id number]) [address], [address] [place] [address] Potassium [Moles/Vol] 4.7 mmol/L Normal 3.5-5.0 [facility] Comment on above: Performed By: #### C NATIVIDAD [facility], #### [facility] ([id number]) [address] [address] [place] [address] Protein [Mass/Vol] 5.8 g/dL Low 6.0-8.0 [facility] Comment on above: Performed By: #### C BCA CMP, #### [facility] ([id number]) [address], [address] [place] [address] Sodium [Moles/Vol] 140 mmol/L Normal 134-146 [facility] Comment on above: Performed By: #### C BCA CMP, #### [facility] ([id number]) [address], [address] [place] [address] Urea nitrogen [Mass/Vol] 23 mg/dL Normal 5-27 [facility] Comment on above: Performed By: #### C NATIVIDAD [facility], #### [facility] ([id number]) [address] [place] [address] MAGNESIUMon 07-18-2025 Magnesium [Mass/Vol] 1.8 mg/dL Normal 1.8-2.6 [facility] Comment on above: Performed By: #### C NATIVIDAD [facility], #### [facility] ([id number]) [address] [place] [address] BEDSIDE GLUCOSEon 07-17-2025 Glucose [Mass/Vol] 189 mg/dL High [address] [place] [address] Comment on above: Performed By: #### Renita HENSON [facility], #### [facility] ([id number]) [address], [address] [place] [address] Glucose [Mass/Vol] 239 mg/dL High [address] Comment on above: Performed By: #### Renita HENSON [facility], #### [facility] ([id number]) [address] [place] [address] Glucose [Mass/Vol] 240 mg/dL High [address] [place] [address] Comment on above: Performed By: #### Renita HENSON [facility], #### [facility] ([id number]) [address] [place] [address] Glucose [Mass/Vol] 175 mg/dL High [address] [place] [address] Comment on above: Performed By: #### Renita HENSON [facility], #### [facility] ([id number]) [address] [place] [address] Glucose [Mass/Vol] 135 mg/dL High [address] [place] [address] Comment on above: Performed By: #### C BCA, CMP, #### [facility] ([id number]) [address], [address] [place] [address] CBC WITH AUTO DIFFERENTIALon 07-17-2025 BASOPHILS ABSOLUTE COUNT (10*3/UL) BY AUTOMATED COUNT 0.0 10*3/uL Normal 0.0-0.2 [facility] Comment on above: Performed By: #### C NATIVIDAD, CMP, #### [facility] ([id number]) [address], [address] [place] [address] BASOPHILS RELATIVE PERCENT BY AUTOMATED COUNT 0.4 % Normal [facility] Comment on above: Performed By: #### C NATIVIDAD, CMP, #### [facility] ([id number]) [address], [address] [place] [address] CELLAVISION DIFFERENTIAL TYPE AUTOMATED DIFFERENTIAL Normal [facility] Comment on above: Performed By: #### C NATIVIDAD, CMP, #### [facility] ([id number]) [address], [address] [place] [address] Eosinophils (Bld) [#/Vol] 0.4 10*3/uL Normal 0.0-0.4 [facility] Comment on above: Performed By: #### Renita HENSON, CMP, #### [facility] ([id number]) [address], [address] [place] [address] EOSINOPHILS RELATIVE PERCENT BY AUTOMATED COUNT 5.4 % Normal [facility] Comment on above: Performed By: #### C NATIVIDAD, CMP, #### [facility] ([id number]) [address], [address] [place] [address] Erythrocyte distribution width (RBC) [Ratio] 17.9 % High 11.5-15 [facility] Comment on above: Performed By: #### C BCA, CMP, #### [facility] ([id number]) [address], [address] [place] [address] Hematocrit (Bld) [Volume fraction] 20.9 % Low 35-47 [facility] Comment on above: Performed By: #### C BCA, CMP, 85602-4 #### [facility] ([id number]) [address], [address] [place] [address] Hemoglobin (Bld) [Mass/Vol] 6.8 g/dL Critically low 11.7-15.5 [facility] Comment on above: Performed By: #### Renita HENSON, CMP, #### [facility] ([id number]) [address], [facility] [address] [place] [address] LYMPHOCYTES ABSOLUTE COUNT (10*3/UL) BY AUTOMATED COUNT 1.6 10*3/uL Normal 1.0-3.5 [facility] Comment on above: Performed By: #### Renita HENSON, CMP, #### [facility] ([id number]) [address], [address] [place] [address] LYMPHOCYTES RELATIVE PERCENT BY AUTOMATED COUNT 22.4 % Normal [facility] Comment on above: Performed By: #### Renita BCA, CMP, #### [facility] ([id number]) [address], [address] [place] [address] MCH (RBC) [Entitic mass] 27.7 pg Normal 27-34 [facility] Comment on above: Performed By: #### C BCA, CMP, #### [facility] ([id number]) [address], [address] [place] [address] MCHC (RBC) [Mass/Vol] 32.7 g/dL Normal 32-36 [facility] Comment on above: Performed By: #### Renita BCA, CMP, #### [facility] ([id number]) [address], [address] [place] [address] MCV (RBC) [Entitic vol] 85 fL Normal 80-100 [facility] Comment on above: Performed By: #### Renita HENSON [facility], #### [facility] ([id number]) [address], [facility] [address] [place] [address] MONOCYTES ABSOLUTE COUNT (10*3/UL) BY AUTOMATED COUNT 0.7 10*3/uL Normal 0.0-0.9 [facility] Comment on above: Performed By: #### Renita HENSON [facility], #### [facility] ([id number]) [address] [address] [place] [address] MONOCYTES RELATIVE PERCENT BY AUTOMATED COUNT 10.1 % Normal [facility] Comment on above: Performed By: #### Renita HENSON CMP, #### [facility] ([id number]) [address], [facility] [address] [place] [address] NEUTROPHILS ABSOLUTE COUNT BY AUTOMATED COUNT 4.5 10*3/uL Normal 1.5-6.6 [facility] Comment on above: Performed By: #### Renita HENSON [facility], #### [facility] ([id number]) [address] [address] [place] [address] NEUTROPHILS RELATIVE PERCENT BY AUTOMATED COUNT 61.7 % Normal [facility] Comment on above: Performed By: #### Renita HENSON CMP, #### [facility] ([id number]) [address], [facility] [address] [place] [address] Platelet mean volume (Bld) [Entitic vol] 8.4 fL Normal 7-12 [facility] Comment on above: Performed By: #### Rneita HENSON, CMP, 73376-4 #### [facility] ([id number]) [address], [facility] [address] [place] [address] Platelets (Bld) [#/Vol] 187 10*3/uL Normal 150-450 [facility] Comment on above: Performed By: #### C NATIVIDAD CMP, 78438-2 #### [facility] ([id number]) [address], [address] [place] [address] RBC COUNT 2.47 X10E12/L Low 3.8-5.2 [facility] Comment on above: Performed By: #### C NATIVIDAD, CMP, #### [facility] ([id number]) [address] [place] [address] WBC (Bld) [#/Vol] 7.3 10*3/uL Normal 4-11 [facility] Comment on above: Performed By: #### Renita HENSON CMP, 05354-6 #### [facility] ([id number]) [address], [address] [place] [address] COMPREHENSIVE METABOLIC PANE Dickson 07-17-2025 Albumin [Mass/Vol] 2.8 g/dL Low 3.2-5.3 [facility] Comment on above: Performed By: #### C NATIVIDAD CMP, 24920-9 #### [facility] ([id number]) [address], [address] [place] [address] ALP [Catalytic activity/Vol] 109 U/L Normal 39-130 [facility] Comment on above: Performed By: #### C NATIVIDAD CMP, #### [facility] ([id number]) [address], [address] [place] [address] ALT [Catalytic activity/Vol] U/L Normal <=31 [facility] Comment on above: Performed By: #### C BCA, CMP, 55809-1 #### [facility] ([id number]) [address], [address] [place] [address] Anion gap [Moles/Vol] 6 mmol/L Normal 5-15 [facility] Comment on above: Performed By: #### C BCA, CMP, #### [facility] ([id number]) [address], [address] [place] [address] AST [Catalytic activity/Vol] 15 U/L Normal <=41 [facility] Comment on above: Performed By: #### C BCA, CMP, #### [facility] ([id number]) [address], [address] [place] [address] Bilirubin [Mass/Vol] 0.4 mg/dL Normal 0.3-1.2 [facility] Comment on above: Performed By: #### C BCA, CMP, #### [facility] ([id number]) [address] [place] [address] Calcium [Mass/Vol] 8.8 mg/dL Normal 8.5-10.5 [facility] Comment on above: Performed By: #### C BCA, CMP, #### [facility] ([id number]) [address] [place] [address] Chloride [Moles/Vol] 109 mmol/L Normal 98-109 [facility] Comment on above: Performed By: #### C BCA, CMP, #### [facility] ([id number]) [address] [place] [address] CO2 [Moles/Vol] 25 mmol/L Normal 22-32 [facility] Comment on above: Performed By: #### C BCA, CMP, #### [facility] ([id number]) [address], [address] [place] [address] Creatinine [Mass/Vol] 1.26 mg/dL High 0.40-1.00 [facility] Comment on above: Result Comment: METH OD TRACEABLE TO IDMS STANDARD Performed By: #### C BCA, CMP, #### [facility] ([id number]) [address], [address] [place] [address] GFR/1.73 sq M.predicted among non-blacks MDRD (S/P/Bld) [Vol rate/Area] 43 mL/min/{1.73_m2} Low >=60 [facility] Comment on above: Result Comment: Repo rted eGFR is based on the CKD-EPI 2020 equation that does not use a race coefficient. Performed By: #### C NATIVIDAD [facility], #### [facility] ([id number]) [address], [address] [place] [address] Glucose [Mass/Vol] 176 mg/dL High 65-99 [facility] Comment on above: Performed By: #### Renita HENSON [facility], #### [facility] ([id number]) [address], [address] [place] [address] Potassium [Moles/Vol] 4.1 mmol/L Normal 3.5-5.0 [facility] Comment on above: Performed By: #### C ANTIVIDAD [facility], #### [facility] ([id number]) [address] [place] [address] Protein [Mass/Vol] 5.5 g/dL Low 6.0-8.0 [facility] Comment on above: Performed By: #### Renita HENSON [facility], #### [facility] ([id number]) [address] [place] [address] Sodium [Moles/Vol] 140 mmol/L Normal 134-146 [facility] Comment on above: Performed By: #### Renita HENSON [facility], 61790-8 #### [facility] ([id number]) [address] [place] [address] Urea nitrogen [Mass/Vol] 27 mg/dL Normal 5-27 [facility] Comment on above: Performed By: #### Renita HENSON CMP, 93067-5 #### [facility] ([id number]) [address], [address] [place] [address] HEMOGLOBIN AND HEMATOCRIT, B LOODon 07-17-2025 Hematocrit (Bld) [Volume fraction] 24.9 % Low 35-47 [facility] Comment on above: Performed By: #### Renita HENSON CMP, #### [facility] ([id number]) [address], [address] [place] [address] Hemoglobin (Bld) [Mass/Vol] 8.2 g/dL Low 11.7-15.5 [facility] Comment on above: Performed By: #### Renita HENSON CMP, 65227-6 #### [facility] ([id number]) [address] [place] [address] MAGNESIUMon 07-17-2025 Magnesium [Mass/Vol] 1.9 mg/dL Normal 1.8-2.6 [facility] Comment on above: Performed By: #### Renita HENSON CMP, #### [facility] ([id number]) [address] [place] [address] TYPE AND SCREENon 07-17-2025 ABO_INTEP O Normal [facility] Comment on above: Performed By: #### Renita HENSON CMP, 48445-1 #### [facility] ([id number]) [address] [place] [address] RH_INTEP Negative Normal [facility] Comment on above: Performed By: #### Renita HENSON CMP, 83382-6 #### [facility] ([id number]) [address] [place] [address] BEDSIDE GLUCOSEon 07-16-2025 Glucose [Mass/Vol] 186 mg/dL High 65-99 [facility] Comment on above: Performed By: #### Renita HENSON, CMP, 50645-3 #### [facility] ([id number]) [address] [place] [address] Glucose [Mass/Vol] 199 mg/dL High 65-99 [facility] Comment on above: Performed By: #### Renita BCA, [facility], 39091-9 #### [facility] ([id number]) [address] [place] [address] Glucose [Mass/Vol] 113 mg/dL High 65-99 [facility] Comment on above: Performed By: #### Renita HENSON, [facility], #### [facility] ([id number]) [address] [place] [address] Glucose [Mass/Vol] 72 mg/dL Normal 65-99 [facility] Comment on above: Performed By: #### Renita HENSON, [facility], 77563-8 #### [facility] ([id number]) [address] [place] [address] CBC WITH AUTO DIFFERENTIALon 07-16-2025 Band form neutrophils/100 WBC (Bld) 3 % Normal [facility] Comment on above: Result Comment: This is an appended report. These results have been appended to a previously preliminary verified report. Performed By: #### Renita HENSON, CMP, #### [facility] ([id number]) [address] [place] [address] CELLAVISION BASOPHILS ABSOLUTE COUNT (10*3/UL) BY MANUAL COUNT 0.1 10*3/uL Normal 0.0-0.2 [facility] Comment on above: Result Comment: This is an appended report. These results have been appended to a previously preliminary verified report. Performed By: #### Renita HENSON, CMP, #### [facility] ([id number]) [address] [place] [address] CELLAVISION BASOPHILS RELATIVE PERCENT BY MANUAL COUNT 1 % Normal [facility] Comment on above: Result Comment: This is an appended report. These results have been appended to a previously preliminary verified report. Performed By: #### C NATIVIDAD [facility], 77080-8 #### [facility] ([id number]) [address] [place] [address] CELLAVISION DIFFERENTIAL TYPE MANUAL DIFFERENTIAL Normal [facility] Comment on above: Result Comment: This is an appended report. These results have been appended to a previously preliminary verified report. Performed By: #### Renita HENSON, CMP, 44013-5 #### [facility] ([id number]) [address] [place] [address] CELLAVISION EOSINOPHILS ABSOLUTE COUNT (10*3/UL) BY MANUAL COUNT 0.5 10*3/uL High 0.0-0.4 [facility] Comment on above: Result Comment: This is an appended report. These results have been appended to a previously preliminary verified report. Performed By: #### Renita HENSON, [facility], 04009-4 #### [facility] ([id number]) [address] [place] [address] CELLAVISION EOSINOPHILS PERCENT BY MANUAL COUNT 5 % Normal [facility] Comment on above: Result Comment: This is an appended report. These results have been appended to a previously preliminary verified report. Performed By: #### Renita HENSON, CMP, 32979-0 #### [facility] ([id number]) [address] [place] [address] CELLAVISION LYMPHOCYTES ABSOLUTE COUNT (10*3/UL) BY MANUAL COUNT 1.5 10*3/uL Normal 1.0-3.5 [facility] Comment on above: Result Comment: This is an appended report. These results have been appended to a previously preliminary verified report. Performed By: #### Renita HENSON, CMP, 08872-2 #### [facility] ([id number]) [address] [place] [address] CELLAVISION LYMPHOCYTES RELATIVE PERCENT BY MANUAL COUNT 17 % Normal [facility] Comment on above: Result Comment: This is an appended report. These results have been appended to a previously preliminary verified report. Performed By: #### C NATIVIDAD CMP, 74789-2 #### [facility] ([id number]) [address] [place] [address] CELLAVISION MONOCYTES ABSOLUTE COUNT (10*3/UL) IN BLOOD BY MANUAL COUNT 0.7 10*3/uL Normal 0.0-0.9 [facility] Comment on above: Result Comment: This is an appended report. These results have been appended to a previously preliminary verified report. Performed By: #### C NATIVIDAD CMP, #### [facility] ([id number]) [address], [address] [place] [address] CELLAVISION MONOCYTES RELATIVE PERCENT BY MANUAL COUNT 8 % Normal [facility] Comment on above: Result Comment: This is an appended report. These results have been appended to a previously preliminary verified report. Performed By: #### Renita HENSON CMP, #### [facility] ([id number]) [address], [address] [place] [address] CELLAVISION MYELOCYTE RELATIVE PERCENT BY MANUAL COUNT 1 % Normal [facility] Comment on above: Result Comment: This is an appended report. These results have been appended to a previously preliminary verified report. Performed By: #### Renita HENSON CMP, #### [facility] ([id number]) [address], [address] [place] [address] CELLAVISION NEUTROPHILS ABSOLUTE COUNT BY MANUAL COUNT 6.2 10*3/uL Normal 1.5-6.6 [facility] Comment on above: Result Comment: This is an appended report. These results have been appended to a previously preliminary verified report. Performed By: #### Renita HENSON CMP, #### [facility] [facility] ([id number]) [address], [address] [place] [address] CELLAVISION NEUTROPHILS RELATIVE PERCENT BY MANUAL COUNT 67 % Normal [facility] Comment on above: Result Comment: This is an appended report. These results have been appended to a previously preliminary verified report. Performed By: #### C NATIVIDAD [facility], #### [facility] ([id number]) [address], [address] [place] [address] CELLAVISION NUCLEATED RED BLOOD CELLS IN BLOOD BY LIGHT MICROSCOPY 1 Normal [facility] Comment on above: Result Comment: This is an appended report. These results have been appended to a previously preliminary verified report. Performed By: #### C [facility]IVIDAD [facility], #### [facility] ([id number]) [address], [address] [place] [address] CELLAVISION RBC MORPHOLOGY Normal Normal [facility] Comment on above: Result Comment: This is an appended report. These results have been appended to a previously preliminary verified report. Performed By: #### Renita HENSON [facility], 90460-9 #### [facility] ([id number]) [address], [address] [place] [address] Erythrocyte distribution width (RBC) [Ratio] 17.5 % High 11.5-15 [facility] Comment on above: Performed By: #### Renita HENSON [facility], 58120-4 #### [facility] ([id number]) [address], [address] [place] [address] Hematocrit (Bld) [Volume fraction] 22.9 % Low 35-47 [facility] Comment on above: Performed By: #### Renita HENSON [facility], 17665-0 #### [facility] ([id number]) [address], [address] [place] [address] Hemoglobin (Bld) [Mass/Vol] 7.6 g/dL Low 11.7-15.5 [facility] Comment on above: Performed By: #### C RUBEN HENSON, #### [facility] ([id number]) [address], [address] [place] [address] MCH (RBC) [Entitic mass] 27.8 pg Normal 27-34 [facility] Comment on above: Performed By: #### Renita HENSON CMP, #### [facility] ([id number]) [address], [address] [place] [address] MCHC (RBC) [Mass/Vol] 33.0 g/dL Normal 32-36 [facility] Comment on above: Performed By: #### Renita HENSON CMP, #### [facility] ([id number]) [address], [address] [place] [address] MCV (RBC) [Entitic vol] 84 fL Normal 80-100 [facility] Comment on above: Performed By: #### Renita HENSON CMP, #### [facility] ([id number]) [address], [address] [place] [address] Platelet mean volume (Bld) [Entitic vol] 8.3 fL Normal 7-12 [facility] Comment on above: Performed By: #### Renita HENSON CMP, #### [facility] ([id number]) [address], [address] [place] [address] Platelets (Bld) [#/Vol] 181 10*3/uL Normal 150-450 [facility] Comment on above: Performed By: #### Renita HENSON CMP, #### [facility] ([id number]) [address], [address] [place] [address] RBC COUNT 2.72 X10E12/L Low 3.8-5.2 [facility] Comment on above: Performed By: #### C BCA, CMP, #### [facility] ([id number]) [address], [address] [place] [address] WBC (Bld) [#/Vol] 9.0 10*3/uL Normal 4-11 [facility] Comment on above: Performed By: #### C BCA, CMP, #### [facility] ([id number]) [address], [address] [place] [address] COMPREHENSIVE METABOLIC PANE [facility] 07-16-2025 Albumin [Mass/Vol] 3.1 g/dL Low 3.2-5.3 [facility] Comment on above: Performed By: #### C BCA, CMP, #### [facility] ([id number]) [address], [address] [place] [address] ALP [Catalytic activity/Vol] 111 U/L Normal 39-130 [facility] Comment on above: Performed By: #### C BCA, CMP, 43864-8 #### [facility] ([id number]) [address], [address] [place] [address] ALT [Catalytic activity/Vol] U/L Normal <=31 [facility] Comment on above: Performed By: #### C BCA, CMP, #### [facility] ([id number]) [address], [address] [place] [address] Anion gap [Moles/Vol] 7 mmol/L Normal 5-15 [facility] Comment on above: Performed By: #### C BCA, CMP, #### [facility] ([id number]) [address], [address] [place] [address] AST [Catalytic activity/Vol] 18 U/L Normal <=41 [facility] Comment on above: Performed By: #### C BCA, CMP, #### [facility] ([id number]) [address], [address] [place] [address] Bilirubin [Mass/Vol] 0.4 mg/dL Normal 0.3-1.2 [facility] Comment on above: Performed By: #### C BCA, CMP, 22335-1 #### [facility] ([id number]) [address], [address] [place] [address] Calcium [Mass/Vol] 8.9 mg/dL Normal 8.5-10.5 [facility] Comment on above: Performed By: #### C BCA, CMP, 94934-2 #### [facility] ([id number]) [address], [address] [place] [address] Chloride [Moles/Vol] 107 mmol/L Normal 98-109 [facility] Comment on above: Performed By: #### C BCA, CMP, #### [facility] ([id number]) [address], [address] [place] [address] CO2 [Moles/Vol] 26 mmol/L Normal 22-32 [facility] Comment on above: Performed By: #### C BCA, CMP, #### [facility] ([id number]) [address], [address] [place] [address] Creatinine [Mass/Vol] 1.51 mg/dL High 0.40-1.00 [facility] Comment on above: Result Comment: METH OD TRACEABLE TO IDMS STANDARD Performed By: #### C BCA, CMP, #### [facility] ([id number]) [address], [address] [place] [address] GFR/1.73 sq M.predicted among non-blacks MDRD (S/P/Bld) [Vol rate/Area] 35 mL/min/{1.73_m2} Low >=60 [facility] Comment on above: Result Comment: Repo rted eGFR is based on the CKD-EPI 2020 equation that does not use a race coefficient. Performed By: #### C [facility], 11344-6 #### [facility] ([id number]) [address], [address] [place] [address] Glucose [Mass/Vol] 82 mg/dL Normal 65-99 [facility] Comment on above: Performed By: #### C [facility], #### [facility] ([id number]) [address], [address] [place] [address] Potassium [Moles/Vol] 4.7 mmol/L Normal 3.5-5.0 [facility] Comment on above: Performed By: #### Renita HENSON [facility], #### [facility] ([id number]) [address], [address] [place] [address] Protein [Mass/Vol] 6.1 g/dL Normal 6.0-8.0 [facility] Comment on above: Performed By: #### Renita HENSON [facility], 46943-0 #### [facility] ([id number]) [address], [address] [place] [address] Sodium [Moles/Vol] 140 mmol/L Normal 134-146 [facility] Comment on above: Performed By: #### Renita HENSON [facility], #### [facility] ([id number]) [address], [address] [place] [address] Urea nitrogen [Mass/Vol] 31 mg/dL High 5-27 [facility] Comment on above: Performed By: #### C [facility], 93290-7 #### [facility] ([id number]) [address], [address] [place] [address] LACTATE W/ REFLEXon 07-16- 25 LACTATE W/REFLEX 1.0 mmol/L Normal 0.4-2.0 [facility] Comment on above: Order Comment: Resul t did not trigger repeat Lactate,re-order if needed. Performed By: #### C RUBEN HENSON, 22740-1 #### [facility] ([id number]) [address], [address] [place] [address] MAGNESIUMon 07-16-2025 Magnesium [Mass/Vol] 2.0 mg/dL Normal 1.8-2.6 [facility] Comment on above: Performed By: #### Renita HENSON CMP, #### [facility] ([id number]) [address], [address] [place] [address] BEDSIDE GLUCOSEon 07-15-2025 Glucose [Mass/Vol] 223 mg/dL High [address] [place] [address] Comment on above: Performed By: #### Renita HENSON CMP, 98759-5 #### [facility] ([id number]) [address], [address] [place] [address] Glucose [Mass/Vol] 246 mg/dL High [address] [place] [address] Comment on above: Performed By: #### Renita HENSON CMP, 97825-8 #### [facility] ([id number]) [address], [address] [place] [address] Glucose [Mass/Vol] 198 mg/dL High [address] [place] [address] Comment on above: Performed By: #### Renita HENSON CMP, 92742-9 #### [facility] ([id number]) [address], [address] [place] [address] Glucose [Mass/Vol] 135 mg/dL High [address] [place] [address] Comment on above: Performed By: #### Renita HENSON CMP, 87131-8 #### [facility] ([id number]) [address], [address] [place] [address] CBC WITH AUTO DIFFERENTIALon 07-15-2025 BASOPHILS ABSOLUTE COUNT (10*3/UL) BY AUTOMATED COUNT 0.0 10*3/uL Normal 0.0-0.2 [facility] Comment on above: Performed By: #### C BCA, CMP, #### [facility] ([id number]) [address], [address] [place] [address] BASOPHILS RELATIVE PERCENT BY AUTOMATED COUNT 0.3 % Normal [facility] Comment on above: Performed By: #### C BCA, CMP, #### [facility] ([id number]) [address], [address] [place] [address] CELLAVISION DIFFERENTIAL TYPE AUTOMATED DIFFERENTIAL Normal [facility] Comment on above: Performed By: #### C BCA, CMP, #### [facility] ([id number]) [address], [address] [place] [address] Eosinophils (Bld) [#/Vol] 0.2 10*3/uL Normal 0.0-0.4 [facility] Comment on above: Performed By: #### C BCA, CMP, #### [facility] ([id number]) [address], [address] [place] [address] EOSINOPHILS RELATIVE PERCENT BY AUTOMATED COUNT 2.0 % Normal [facility] Comment on above: Performed By: #### C BCA, CMP, #### [facility] ([id number]) [address], [address] [place] [address] Erythrocyte distribution width (RBC) [Ratio] 17.4 % High 11.5-15 [facility] Comment on above: Performed By: #### C BCA, CMP, #### [facility] ([id number]) [address], [address] [place] [address] Hematocrit (Bld) [Volume fraction] 22.1 % Low 35-47 [facility] Comment on above: Performed By: #### C BCA, CMP, #### [facility] ([id number]) [address], [address] [place] [address] Hemoglobin (Bld) [Mass/Vol] 7.3 g/dL Low 11.7-15.5 [facility] Comment on above: Performed By: #### Renita HENSON, CMP, #### [facility] ([id number]) [address], [address] [place] [address] LYMPHOCYTES ABSOLUTE COUNT (10*3/UL) BY AUTOMATED COUNT 1.6 10*3/uL Normal 1.0-3.5 [facility] Comment on above: Performed By: #### Renita HENSON, CMP, #### [facility] ([id number]) [address], [facility] [address] [place] [address] LYMPHOCYTES RELATIVE PERCENT BY AUTOMATED COUNT 20.5 % Normal [facility] Comment on above: Performed By: #### Renita HENSON, CMP, #### [facility] ([id number]) [address], [address] [place] [address] MCH (RBC) [Entitic mass] 27.6 pg Normal 27-34 [facility] Comment on above: Performed By: #### Renita HENSON, CMP, #### [facility] ([id number]) [address], [address] [place] [address] MCHC (RBC) [Mass/Vol] 32.9 g/dL Normal 32-36 [facility] Comment on above: Performed By: #### Renita HENSON, CMP, #### [facility] ([id number]) [address], [facility] [address] [place] [address] MCV (RBC) [Entitic vol] 84 fL Normal 80-100 [facility] Comment on above: Performed By: #### Renita BCA, CMP, #### [facility] ([id number]) [address], [address] [place] [address] MONOCYTES ABSOLUTE COUNT (10*3/UL) BY AUTOMATED COUNT 0.9 10*3/uL Normal 0.0-0.9 [facility] Comment on above: Performed By: #### C NATIVIDAD, CMP, 79014-0 #### [facility] ([id number]) [address], [address] [place] [address] MONOCYTES RELATIVE PERCENT BY AUTOMATED COUNT 11.1 % Normal [facility] Comment on above: Performed By: #### C NATIVIDAD, CMP, #### [facility] ([id number]) [address], [address] [place] [address] NEUTROPHILS ABSOLUTE COUNT BY AUTOMATED COUNT 5.2 10*3/uL Normal 1.5-6.6 [facility] Comment on above: Performed By: #### Renita HENSON, CMP, #### [facility] ([id number]) [address], [address] [place] [address] NEUTROPHILS RELATIVE PERCENT BY AUTOMATED COUNT 66.1 % Normal [facility] Comment on above: Performed By: #### Renita HENSON, CMP, #### [facility] ([id number]) [address], [address] [place] [address] Platelet mean volume (Bld) [Entitic vol] 8.1 fL Normal 7-12 [facility] Comment on above: Performed By: #### Renita HENSON, CMP, #### [facility] ([id number]) [address], [address] [place] [address] Platelets (Bld) [#/Vol] 168 10*3/uL Normal 150-450 [facility] Comment on above: Performed By: #### C BCA, CMP, #### [facility] ([id number]) [address], [address] [place] [address] RBC COUNT 2.63 X10E12/L Low 3.8-5.2 [facility] Comment on above: Performed By: #### C BCA, CMP, 76791-0 #### [facility] ([id number]) [address], [address] [place] [address] WBC (Bld) [#/Vol] 7.8 10*3/uL Normal 4-11 [facility] Comment on above: Performed By: #### C BCA, CMP, #### [facility] ([id number]) [address], [address] [place] [address] COMPREHENSIVE METABOLIC PANE [facility] 07-15-2025 Albumin [Mass/Vol] 3.0 g/dL Low 3.2-5.3 [facility] Comment on above: Performed By: #### C BCA, CMP, 86307-0 #### [facility] ([id number]) [address], [address] [place] [address] ALP [Catalytic activity/Vol] 104 U/L Normal 39-130 [facility] Comment on above: Performed By: #### C BCA, CMP, 47972-5 #### [facility] ([id number]) [address], [address] [place] [address] ALT [Catalytic activity/Vol] U/L Normal <=31 [facility] Comment on above: Performed By: #### C BCA, CMP, #### [facility] ([id number]) [address], [address] [place] [address] Anion gap [Moles/Vol] 6 mmol/L Normal 5-15 [facility] Comment on above: Performed By: #### C BCA, CMP, #### [facility] ([id number]) [address], [address] [place] [address] AST [Catalytic activity/Vol] 18 U/L Normal <=41 [facility] Comment on above: Performed By: #### C BCA, CMP, #### [facility] ([id number]) [address], [address] [place] [address] Bilirubin [Mass/Vol] 0.3 mg/dL Normal 0.3-1.2 [facility] Comment on above: Performed By: #### C BCA, CMP, #### [facility] ([id number]) [address], [address] [place] [address] Calcium [Mass/Vol] 8.3 mg/dL Low 8.5-10.5 [facility] Comment on above: Performed By: #### C NATIVIDAD, CMP, #### [facility] ([id number]) [address], [address] [place] [address] Chloride [Moles/Vol] 105 mmol/L Normal 98-109 [facility] Comment on above: Performed By: #### C BCA, [facility], #### [facility] ([id number]) [address] [place] [address] CO2 [Moles/Vol] 28 mmol/L Normal 22-32 [facility] Comment on above: Performed By: #### C BCA, [facility], #### [facility] ([id number]) [address], [address] [place] [address] Creatinine [Mass/Vol] 1.91 mg/dL High 0.40-1.00 [facility] Comment on above: Result Comment: METH OD TRACEABLE TO IDMS STANDARD Performed By: #### C BCA, CMP, #### [facility] ([id number]) [address], [address] [place] [address] GFR/1.73 sq M.predicted among non-blacks MDRD (S/P/Bld) [Vol rate/Area] 26 mL/min/{1.73_m2} Low >=60 [facility] Comment on above: Result Comment: Repo rted eGFR is based on the CKD-EPI 2020 equation that does not use a race coefficient. Performed By: #### C RUBEN HENSON, #### [facility] ([id number]) [address], [address] [place] [address] Glucose [Mass/Vol] 134 mg/dL High 65-99 [facility] Comment on above: Performed By: #### C RUBEN HENSON, #### [facility] ([id number]) [address], [address] [place] [address] Potassium [Moles/Vol] 4.4 mmol/L Normal 3.5-5.0 [facility] Comment on above: Performed By: #### Renita HENSON CMP, #### [facility] ([id number]) [address], [address] [place] [address] Protein [Mass/Vol] 5.8 g/dL Low 6.0-8.0 [facility] Comment on above: Performed By: #### C RUBEN HENSON, #### [facility] ([id number]) [address], [address] [place] [address] Sodium [Moles/Vol] 139 mmol/L Normal 134-146 [facility] Comment on above: Performed By: #### Renita HENSON CMP, #### [facility] ([id number]) [address], [address] [place] [address] Urea nitrogen [Mass/Vol] 35 mg/dL High 5-27 [facility] Comment on above: Performed By: #### Renita HENSON CMP, #### [facility] ([id number]) [address], [address] [place] [address] MAGNESIUMon 07-15-2025 Magnesium [Mass/Vol] 2.0 mg/dL Normal 1.8-2.6 [facility] Comment on above: Performed By: #### C BCA, CMP, 45791-0 #### [facility] ([id number]) [address], [address] [place] [address] MICROALBUMIN / CREATININE UR INE RATIOon 07-15-2025 Albumin DL <= 20 mg/L (U) [Mass/Vol] 12.4 mg/dL High 0.0-1.9 [facility] Comment on above: Performed By: #### C NATIVIDAD, CMP, #### [facility] ([id number]) [address], [address] [place] [address] MALB/CREAT RATIO 141.9 mg/g High 0.0-30.0 [facility] Comment on above: Performed By: #### Renita HENSON, CMP, 07485-8 #### [facility] ([id number]) [address], [address] [place] [address] URINE CREATININE,RDM 87.37 mg/dL Normal [facility] Comment on above: Performed By: #### Renita HENSON, CMP, #### [facility] ([id number]) [address], [address] [place] [address] MRSA PCR NASAL SWABon 2024 MRSA PCR NASAL SWAB Negative Normal Negative [facility] Comment on above: Performed By: #### C BCA, CMP, #### [facility] ([id number]) [address], [address] [place] [address] SODIUM, URINE, RANDOMon 06-17 Sodium (U) [Moles/Vol] 33 mmol/L Normal [facility] Comment on above: Performed By: #### C BCA, CMP, #### [facility] ([id number]) [address], [address] [place] [address] URINALYSISon 07-15-2025 Bilirubin Ql (U) Negative Normal Negative [facility] Comment on above: Performed By: #### C NATIVIDAD, CMP, #### [facility] ([id number]) [address] [place] [address] BLOOD/HGB Moderate Abnormal Negative [facility] Comment on above: Performed By: #### C NATIVIDAD, CMP, #### [facility] ([id number]) [address] [place] [address] Color (U) Yellow Normal Yellow [facility] Comment on above: Performed By: #### C NATIVIDAD, CMP, #### [facility] ([id number]) [address], [address] [place] [address] Glucose Ql (U) Negative Normal Negative [facility] Comment on above: Performed By: #### Renita HENSON, CMP, #### [facility] ([id number]) [address], [address] [place] [address] Ketones Ql (U) Negative Normal Negative [facility] Comment on above: Performed By: #### Renita HENSON, CMP, #### [facility] ([id number]) [address] [place] [address] Leukocyte esterase Test strip Ql (U) Large Abnormal Negative [facility] Comment on above: Performed By: #### Renita HENSON, CMP, #### [facility] ([id number]) [address], [address] [place] [address] Nitrite Ql (U) Negative Normal Negative [facility] Comment on above: Performed By: #### Renita HENSON, CMP, #### [facility] ([id number]) [address] [place] [address] PH,URINE 6.0 Normal 5.0-8.5 [facility] Comment on above: Performed By: #### Renita HENSON CMP, #### [facility] ([id number]) [address], [address] [place] [address] Protein Ql (U) 70 mg/dL Abnormal Negative [facility] Comment on above: Performed By: #### Renita HENSON CMP, #### [facility] ([id number]) [address], [address] [place] [address] R.B.CELLS 47 High 0-5 [facility] Comment on above: Performed By: #### Renita HENSON CMP, #### [facility] ([id number]) [address] [place] [address] Specific gravity (U) [Rel density] 1.017 Normal 1.003-1.03 5 [facility] Comment on above: Performed By: #### Renita HENSON CMP, #### [facility] ([id number]) [address] [place] [address] SQUAMOUS EPITHELIUM >^27 High 0-5 [facility] Comment on above: Performed By: #### Renita HENSON CMP, #### [facility] ([id number]) [address], [address] [place] [address] TRANSITIONAL EPITH 1 High <=0 [facility] Comment on above: Performed By: #### Renita HENSON CMP, #### [facility] ([id number]) [address], [address] [place] [address] TURBIDITY Cloudy Abnormal Clear [facility] Comment on above: Performed By: #### Renita HENSON, CMP, #### [facility] ([id number]) [address], [address] [place] [address] UROBILINOGEN <1.1 eu/dL Normal <1.1 eu/dL [facility] Comment on above: Performed By: #### C [place], CMP, 51798-4 #### [facility] ([id number]) [address], [address] [place] [address] [address] High 0-5 [facility] Comment on above: Performed By: #### Renita HENSON, CMP, 59437-1 #### [facility] ([id number]) [address], [address] [place] [address] WBC CLUMPS Few Abnormal None [facility] Comment on above: Performed By: #### Renita HENSON, CMP, 84879-8 #### [facility] ([id number]) [address], [address] [place] [address] URINE CREATININE,RANDOMon URINE CREATININE,RDM 87.00 mg/dL Normal [facility] Comment on above: Performed By: #### Renita HENSON, CMP, 59849-2 #### [facility] ([id number]) [address], [address] [place] [address] URINE CULTUREon 07-15-2025 Bacteria identified Cx Nom (U) CULTURE RESULTS 10-50,000 ORGANISMS/mL NORMAL UROGENITAL BAILEY Normal [facility] Comment on above: Performed By: #### Renita HENSON, CMP, 08247-4 #### [facility] ([id number]) [address] [place] [address] APTTon 07-14-2025 APTT PTT APTT Cancelled Normal [facility] Comment on above: Order Comment: Erin Sheffield RN at 1646 B-TYPE NATRIURETIC PEPTIDEon 07-14-2025 B-TYPE NATRIURETIC PEPTIDE BNP B-TYPE NATRIURETIC PEPTIDE Cancelled Normal [facility] Comment on above: Order Comment: BNP O UT OF STABILITY, TUBE NEVER RECEIVED IN CHEMISTRY BEDSIDE GLUCOSEon 07-14-2025 Glucose [Mass/Vol] 328 mg/dL High 65-99 [facility] Comment on above: Performed By: #### C RUBEN HENSON, #### [facility] ([id number]) [address], [address] [place] [address] Glucose [Mass/Vol] 347 mg/dL High -99 [facility] Comment on above: Performed By: #### Renita HENSON CMP, #### [facility] ([id number]) [address], [address] [place] [address] Glucose [Mass/Vol] 244 mg/dL High -99 [facility] Comment on above: Performed By: #### Renita HENSON CMP, #### [facility] ([id number]) [address], [address] [place] [address] Glucose [Mass/Vol] 223 mg/dL High [address] [place] [address] Comment on above: Performed By: #### Renita HENSON CMP, #### [facility] ([id number]) [address], [address] [place] [address] BLOOD CULTUREon 07-14-2025 Bacteria identified Cx Nom (Bld) CULTURE RESULTS NO GROWTH 5 DAYS Normal [facility] Comment on above: Order Comment: *SIRS [...] are improving Performed By: #### Renita HENSON CMP, #### [facility] ([id number]) [address], [address] [place] [address] Order Comment: *SIRS Criteria: (must display 2 [...] BY AUTOMATED COUNT 0.0 10*3/uL Normal 0.0-0.2 [facility] Comment on above: Performed By: #### Renita HENSON CMP, #### [facility] ([id number]) [address] [place] [address] BASOPHILS RELATIVE PERCENT BY AUTOMATED COUNT 0.2 % Normal [facility] Comment on above: Performed By: #### Renita HENSON CMP, #### [facility] ([id number]) [address], [address] [place] [address] CELLAVISION DIFFERENTIAL TYPE AUTOMATED DIFFERENTIAL Normal [facility] Comment on above: Performed By: #### Renita HENSON CMP, #### [facility] ([id number]) [address], [address] [place] [address] Eosinophils (Bld) [#/Vol] 0.0 10*3/uL Normal 0.0-0.4 [facility] Comment on above: Performed By: #### Renita HENSON CMP, #### [facility] ([id number]) [address] [place] [address] EOSINOPHILS RELATIVE PERCENT BY AUTOMATED COUNT 0.1 % Normal [facility] Comment on above: Performed By: #### Renita HENSON CMP, #### [facility] ([id number]) [address], [facility] [address] [place] [address] Erythrocyte distribution width (RBC) [Ratio] 18.2 % High 11.5-15 [facility] Comment on above: Performed By: #### C NATIVIDAD, CMP, #### [facility] ([id number]) [address], [address] [place] [address] Hematocrit (Bld) [Volume fraction] 20.1 % Low 35-47 [facility] Comment on above: Performed By: #### C NATIVIDAD, CMP, #### [facility] ([id number]) [address], [address] [place] [address] Hemoglobin (Bld) [Mass/Vol] 6.4 g/dL Critically low 11.7-15.5 [facility] Comment on above: Performed By: #### Renita HENSON, CMP, #### [facility] ([id number]) [address], [facility] [address] [place] [address] LYMPHOCYTES ABSOLUTE COUNT (10*3/UL) BY AUTOMATED COUNT 1.4 10*3/uL Normal 1.0-3.5 [facility] Comment on above: Performed By: #### C NATIVIDAD, CMP, #### [facility] ([id number]) [address], [address] [place] [address] LYMPHOCYTES RELATIVE PERCENT BY AUTOMATED COUNT 17.2 % Normal [facility] Comment on above: Performed By: #### Renita HENSON CMP, #### [facility] ([id number]) [address], [address] [place] [address] MCH (RBC) [Entitic mass] 26.7 pg Low 27-34 [facility] Comment on above: Performed By: #### Renita HENSON, CMP, #### [facility] ([id number]) [address], [address] [place] [address] MCHC (RBC) [Mass/Vol] 32.0 g/dL Normal 32-36 [facility] Comment on above: Performed By: #### C NATIVIDAD CMP, #### [facility] ([id number]) [address], [address] [place] [address] MCV (RBC) [Entitic vol] 83 fL Normal 80-100 [facility] Comment on above: Performed By: #### C BCA, CMP, #### [facility] ([id number]) [address], [address] [place] [address] MONOCYTES ABSOLUTE COUNT (10*3/UL) BY AUTOMATED COUNT 0.9 10*3/uL Normal 0.0-0.9 [facility] Comment on above: Performed By: #### C BCA, CMP, #### [facility] ([id number]) [address], [address] [place] [address] MONOCYTES RELATIVE PERCENT BY AUTOMATED COUNT 10.6 % Normal [facility] Comment on above: Performed By: #### C BCA, CMP, #### [facility] ([id number]) [address], [address] [place] [address] NEUTROPHILS ABSOLUTE COUNT BY AUTOMATED COUNT 5.9 10*3/uL Normal 1.5-6.6 [facility] Comment on above: Performed By: #### C BCA, CMP, #### [facility] ([id number]) [address], [address] [place] [address] NEUTROPHILS RELATIVE PERCENT BY AUTOMATED COUNT 71.9 % Normal [facility] Comment on above: Performed By: #### C BCA, CMP, #### [facility] ([id number]) [address], [address] [place] [address] Platelet mean volume (Bld) [Entitic vol] 8.4 fL Normal 7-12 [facility] Comment on above: Performed By: #### C BCA, CMP, #### [facility] ([id number]) [address], [address] [place] [address] Platelets (Bld) [#/Vol] 172 10*3/uL Normal 150-450 [facility] Comment on above: Performed By: #### eRnita HENSON, CMP, #### [facility] ([id number]) [address], [address] [place] [address] RBC COUNT 2.42 X10E12/L Low 3.8-5.2 [facility] Comment on above: Performed By: #### C NATIVIDAD, CMP, #### [facility] ([id number]) [address], [address] [place] [address] WBC (Bld) [#/Vol] 8.2 10*3/uL Normal 4-11 [facility] Comment on above: Performed By: #### Renita HENSON, CMP, #### [facility] ([id number]) [address], [address] [place] [address] BASOPHILS ABSOLUTE COUNT (10*3/UL) BY AUTOMATED COUNT 0.0 10*3/uL Normal 0.0-0.2 [facility] Comment on above: Performed By: #### Renita HENSON, CMP, #### [facility] ([id number]) [address], [address] [place] [address] BASOPHILS RELATIVE PERCENT BY AUTOMATED COUNT 0.1 % Normal [facility] Comment on above: Performed By: #### Renita HENSON, CMP, #### [facility] ([id number]) [address], [address] [place] [address] CELLAVISION DIFFERENTIAL TYPE AUTOMATED DIFFERENTIAL Normal [facility] Comment on above: Performed By: #### Renita BCA, CMP, #### [facility] ([id number]) [address], [address] [place] [address] Eosinophils (Bld) [#/Vol] 0.0 10*3/uL Normal 0.0-0.4 [facility] Comment on above: Performed By: #### C RUBEN HENSON, #### [facility] ([id number]) [address], [address] [place] [address] EOSINOPHILS RELATIVE PERCENT BY AUTOMATED COUNT 0.0 % Normal [facility] Comment on above: Performed By: #### Renita HENSON CMP, #### [facility] ([id number]) [address], [facility] [address] [place] [address] Erythrocyte distribution width (RBC) [Ratio] 17.8 % High 11.5-15 [facility] Comment on above: Performed By: #### Renita HENSON CMP, #### [facility] ([id number]) [address], [facility] [address] [place] [address] Hematocrit (Bld) [Volume fraction] 22.3 % Low 35-47 [facility] Comment on above: Performed By: #### Renita HENSON CMP, #### [facility] ([id number]) [address], [facility] [address] [place] [address] Hemoglobin (Bld) [Mass/Vol] 7.5 g/dL Low 11.7-15.5 [facility] Comment on above: Performed By: #### Renita HENSON CMP, #### [facility] ([id number]) [address], [address] [place] [address] LYMPHOCYTES ABSOLUTE COUNT (10*3/UL) BY AUTOMATED COUNT 1.2 10*3/uL Normal 1.0-3.5 [facility] Comment on above: Performed By: #### Renita HENSON CMP, #### [facility] ([id number]) [address], [address] [place] [address] LYMPHOCYTES RELATIVE PERCENT BY AUTOMATED COUNT 14.3 % Normal [facility] Comment on above: Performed By: #### C NATIVIDAD, CMP, #### [facility] ([id number]) [address], [address] [place] [address] MCH (RBC) [Entitic mass] 27.1 pg Normal 27-34 [facility] Comment on above: Performed By: #### Renita HENSON CMP, #### [facility] ([id number]) [address], [address] [place] [address] MCHC (RBC) [Mass/Vol] 33.4 g/dL Normal 32-36 [facility] Comment on above: Performed By: #### Renita HENSON, CMP, #### [facility] ([id number]) [address], [facility] [address] [place] [address] MCV (RBC) [Entitic vol] 81 fL Normal 80-100 [facility] Comment on above: Performed By: #### Renita HENSON, CMP, #### [facility] ([id number]) [address], [address] [place] [address] MONOCYTES ABSOLUTE COUNT (10*3/UL) BY AUTOMATED COUNT 1.0 10*3/uL High 0.0-0.9 [facility] Comment on above: Performed By: #### Renita HENSON CMP, #### [facility] ([id number]) [address], [address] [place] [address] MONOCYTES RELATIVE PERCENT BY AUTOMATED COUNT 11.6 % Normal [facility] Comment on above: Performed By: #### Renita HENSON, CMP, #### [facility] ([id number]) [address], [address] [place] [address] NEUTROPHILS ABSOLUTE COUNT BY AUTOMATED COUNT 6.4 10*3/uL Normal 1.5-6.6 [facility] Comment on above: Performed By: #### C BCA, CMP, #### [facility] ([id number]) [address], [address] [place] [address] NEUTROPHILS RELATIVE PERCENT BY AUTOMATED COUNT 74.0 % Normal [facility] Comment on above: Performed By: #### C BCA, CMP, #### [facility] ([id number]) [address], [address] [place] [address] Platelet mean volume (Bld) [Entitic vol] 8.3 fL Normal 7-12 [facility] Comment on above: Performed By: #### C NATIVIDAD, CMP, #### [facility] ([id number]) [address], [address] [place] [address] Platelets (Bld) [#/Vol] 167 10*3/uL Normal 150-450 [facility] Comment on above: Performed By: #### C BCA, CMP, #### [facility] ([id number]) [address], [address] [place] [address] RBC COUNT 2.75 X10E12/L Low 3.8-5.2 [facility] Comment on above: Performed By: #### C BCA, CMP, #### [facility] ([id number]) [address], [address] [place] [address] WBC (Bld) [#/Vol] 8.6 10*3/uL Normal 4-11 [facility] Comment on above: Performed By: #### C BCA, CMP, #### [facility] ([id number]) [address], [address] [place] [address] COMPREHENSIVE METABOLIC PANE Dickson 07-14-2025 Albumin [Mass/Vol] 3.0 g/dL Low 3.2-5.3 [facility] Comment on above: Performed By: #### C BCA, CMP, #### [facility] ([id number]) [address] [place] [address] ALP [Catalytic activity/Vol] 112 U/L Normal 39-130 [facility] Comment on above: Performed By: #### C BCA, CMP, 25280-9 #### [facility] ([id number]) [address], [address] [place] [address] ALT [Catalytic activity/Vol] U/L Normal <=31 [facility] Comment on above: Performed By: #### C BCA, CMP, #### [facility] ([id number]) [address], [address] [place] [address] Anion gap [Moles/Vol] 12 mmol/L Normal 5-15 [facility] Comment on above: Performed By: #### C BCA, CMP, #### [facility] ([id number]) [address] [place] [address] AST [Catalytic activity/Vol] 23 U/L Normal <=41 [facility] Comment on above: Performed By: #### C BCA, CMP, #### [facility] ([id number]) [address] [place] [address] Bilirubin [Mass/Vol] 0.2 mg/dL Low 0.3-1.2 [facility] Comment on above: Performed By: #### C BCA, CMP, #### [facility] ([id number]) [address], [address] [place] [address] Calcium [Mass/Vol] 8.1 mg/dL Low 8.5-10.5 [facility] Comment on above: Performed By: #### C BCA, CMP, #### [facility] ([id number]) [address], [address] [place] [address] Chloride [Moles/Vol] 101 mmol/L Normal 98-109 [facility] Comment on above: Performed By: #### C RUBEN HENSON, #### [facility] ([id number]) [address], [address] [place] [address] CO2 [Moles/Vol] 22 mmol/L Normal 22-32 [facility] Comment on above: Performed By: #### C RUBEN HENSON, #### [facility] ([id number]) [address], [address] [place] [address] Creatinine [Mass/Vol] 2.40 mg/dL High 0.40-1.00 [facility] Comment on above: Result Comment: METH OD TRACEABLE TO IDMS STANDARD Performed By: #### C RUBEN HENSON, #### [facility] ([id number]) [address] [place] [address] GFR/1.73 sq M.predicted among non-blacks MDRD (S/P/Bld) [Vol rate/Area] 20 mL/min/{1.73_m2} Low >=60 [facility] Comment on above: Result Comment: Repo rted eGFR is based on the CKD-EPI 2020 equation that does not use a race coefficient. Performed By: #### C RUBEN HENSON, #### [facility] ([id number]) [address] [place] [address] Glucose [Mass/Vol] 294 mg/dL High 65-99 [facility] Comment on above: Performed By: #### C NATIVIDAD CMP, #### [facility] ([id number]) [address], [address] [place] [address] Potassium [Moles/Vol] 4.8 mmol/L Normal 3.5-5.0 [facility] Comment on above: Performed By: #### C BCA CMP, #### [facility] ([id number]) [address] [place] [address] Protein [Mass/Vol] 6.2 g/dL Normal 6.0-8.0 [facility] Comment on above: Performed By: #### C BCA, CMP, 03572-1 #### [facility] ([id number]) [address], [address] [place] [address] Sodium [Moles/Vol] 135 mmol/L Normal 134-146 [facility] Comment on above: Performed By: #### C BCA, CMP, 74543-8 #### [facility] ([id number]) [address] [place] [address] Urea nitrogen [Mass/Vol] 39 mg/dL High 5-27 [facility] Comment on above: Performed By: #### C BCA, CMP, #### [facility] ([id number]) [address] [place] [address] Albumin [Mass/Vol] 3.2 g/dL Normal 3.2-5.3 [facility] Comment on above: Performed By: #### C BCA, CMP, #### [facility] ([id number]) [address], [address] [place] [address] ALP [Catalytic activity/Vol] 116 U/L Normal 39-130 [facility] Comment on above: Performed By: #### C BCA, CMP, 42353-5 #### [facility] ([id number]) [address] [place] [address] ALT [Catalytic activity/Vol] 7 U/L Normal <=31 [facility] Comment on above: Performed By: #### C BCA, CMP, #### [facility] ([id number]) [address] [place] [address] Anion gap [Moles/Vol] 11 mmol/L Normal 5-15 [facility] Comment on above: Performed By: #### C NATIVIDAD CMP, #### [facility] ([id number]) [address] [place] [address] AST [Catalytic activity/Vol] 28 U/L Normal <=41 [facility] Comment on above: Performed By: #### C NATIVIDAD, CMP, #### [facility] ([id number]) [address], [address] [place] [address] Bilirubin [Mass/Vol] 0.3 mg/dL Normal 0.3-1.2 [facility] Comment on above: Performed By: #### C NATIVIDAD CMP, #### [facility] ([id number]) [address], [address] [place] [address] Calcium [Mass/Vol] 8.8 mg/dL Normal 8.5-10.5 [facility] Comment on above: Performed By: #### C NATIVIDAD, CMP, #### [facility] ([id number]) [address], [address] [place] [address] Chloride [Moles/Vol] 96 mmol/L Low 98-109 [facility] Comment on above: Performed By: #### C NATIVIDAD CMP, #### [facility] ([id number]) [address], [address] [place] [address] CO2 [Moles/Vol] 30 mmol/L Normal 22-32 [facility] Comment on above: Performed By: #### C NATIVIDAD, CMP, #### [facility] ([id number]) [address] [place] [address] Creatinine [Mass/Vol] 2.29 mg/dL High 0.40-1.00 [facility] Comment on above: Result Comment: METH OD TRACEABLE TO IDMS STANDARD Performed By: #### C NATIVIDAD [facility], #### [facility] ([id number]) [address], [address] [place] [address] GFR/1.73 sq M.predicted among non-blacks MDRD (S/P/Bld) [Vol rate/Area] 21 mL/min/{1.73_m2} Low >=60 [facility] Comment on above: Result Comment: Repo rted eGFR is based on the CKD-EPI 2020 equation that does not use a race coefficient. Performed By: #### C RUBEN HENSON, #### [facility] ([id number]) [address] [place] [address] Glucose [Mass/Vol] 198 mg/dL High 65-99 [facility] Comment on above: Performed By: #### Renita HENSON [facility], #### [facility] ([id number]) [address] [place] [address] Potassium [Moles/Vol] 5.0 mmol/L Normal 3.5-5.0 [facility] Comment on above: Performed By: #### C NATIVIDAD [facility], #### [facility] ([id number]) [address] [address] [place] [address] Protein [Mass/Vol] 6.4 g/dL Normal 6.0-8.0 [facility] Comment on above: Performed By: #### C NATIVIDAD CMP, #### [facility] ([id number]) [address] [place] [address] Sodium [Moles/Vol] 137 mmol/L Normal 134-146 [facility] Comment on above: Performed By: #### C NATIVIDAD CMP, #### [facility] ([id number]) [address] [place] [address] Urea nitrogen [Mass/Vol] 37 mg/dL High 5-27 [facility] Comment on above: Performed By: #### C RUBEN HENSON, 89633-1 #### [facility] ([id number]) [address] [place] [address] HEMOGLOBIN A1Con 07-14-2025 Glucose [Mass/Vol] 197 mg/dL Normal [facility] Comment on above: Performed By: #### C RUBEN HENSON, 08897-7 #### [facility] ([id number]) [address] [facility] [address] [place] [address] HbA1c (Bld) [Mass fraction] 8.5 % High 4.4-5.6 [facility] Comment on above: Result Comment: ADA Guidelines Result HgbA1c Normal : less than 5.7 % Prediabetes : 5.7 % to 6.4 % Diabetes : > 6.4 % Use with caution in patients with abnormal hemoglobin variants as the half-life of red blood cells and in vivo glycation rates are affected. Performed By: #### Renita EHNSON CMP, 82332-8 #### [facility] ([id number]) [address], [facility] [address] [place] [address] HEMOGLOBIN AND HEMATOCRIT, B LOODon 07-14-2025 Hematocrit (Bld) [Volume fraction] 22.9 % Low 35-47 [facility] Comment on above: Performed By: #### Renita HENSON CMP, 84013-1 #### [facility] ([id number]) [address], [facility] [address] [place] [address] Hemoglobin (Bld) [Mass/Vol] 7.5 g/dL Low 11.7-15.5 [facility] Comment on above: Performed By: #### Renita HENSON CMP, 17129-5 #### [facility] ([id number]) [address], [facility] [address] [place] [address] Hematocrit (Bld) [Volume fraction] 24.3 % Low 35-47 [facility] Comment on above: Performed By: #### Renita HENSON CMP, 48533-4 #### [facility] ([id number]) [address] [place] [address] Hemoglobin (Bld) [Mass/Vol] 8.0 g/dL Low 11.7-15.5 [facility] Comment on above: Performed By: #### Renita HENSON CMP, #### [facility] ([id number]) [address] [place] [address] LACTATEon 07-14-2025 Lactate [Moles/Vol] 2.7 mmol/L High 0.4-2.0 [facility] Comment on above: Performed By: #### Renita HENSON CMP, #### [facility] ([id number]) [address] [place] [address] LACTATE W/ REFLEXon 07-14-20 25 LACTATE W/REFLEX 2.3 mmol/L High 0.4-2.0 [facility] Comment on above: Performed By: #### Renita HENSON CMP, #### [facility] ([id number]) [address], [address] [place] [address] LDHon 07-14-2025 LDH 225 U/L Normal 100-235 [facility] Comment on above: Performed By: #### Renita HENSON CMP, #### [facility] ([id number]) [address], [address] [place] [address] MAGNESIUMon 07-14-2025 Magnesium [Mass/Vol] 2.0 mg/dL Normal 1.8-2.6 [facility] Comment on above: Performed By: #### Renita HENSON CMP, #### [facility] ([id number]) [address], [address] [place] [address] Magnesium [Mass/Vol] 2.2 mg/dL Normal 1.8-2.6 [facility] Comment on above: Performed By: #### Renita HENSON CMP, [id number] #### [facility] ([id number]) [address], [address] [place] [address] PHOSPHORUSon 07-14-2025 Phosphate [Mass/Vol] 6.1 mg/dL High 2.4-4.9 [facility] Comment on above: Performed By: #### Renita HENSON CMP, [id number] #### [facility] ([id number]) [address], [address] [place] [address] PROCALCITONINon 07-14-2025 PROCALCITONIN 0.34 ng/mL High <0.05 [facility] Comment on above: Order Comment: <0.50 ng/mL - Low risk of severe sepsis and/or septic shock.<2.00 ng/mL - Recommend retesting within 6-24 hours.>2.00 ng/mL - High risk of sepsis and/or septic shock. Performed By: #### Renita HENSON CMP, [id number] #### [facility] ([id number]) [address], [address] [place] [address] PROTIME AND INRon 07-14-2025 PROTIME AND INR PINR PROTIME & INR Cancelled Normal [facility] Comment on above: Order Comment: Erin Sheffield RN at 1646 RETICULOCYTESon 07-14-2025 RETICULOCYTE COUNT 1.6 % Normal 0.4-2.2 [facility] Comment on above: Performed By: #### Renita HENSON CMP, 24957-1 #### [facility] ([id number]) [address] [place] [address] XR CHEST 1 VWon 07-14-2025 XR CHEST 1 VW XR CHEST 1 VW CLINICAL HISTORY: Sepsis Comparison: 07/04/2025 Views: 1 view FINDINGS: * Mild basilar atelectasis. Otherwise lungs clear. Heart size stable. No pneumothorax. Old right rib fractures. IMPRESSION: * No active disease nor significant interval change Finalized by Jason Vanegas MD on 07/14/2025 3:44 PM Normal [facility] BEDSIDE GLUCOSEon 07-13-2025 Glucose [Mass/Vol] 364 mg/dL High 65-99 [facility] Comment on above: Performed By: #### C NATIVIDAD [facility], 77665-7 #### [facility] ([id number]) [address], [address] [place] [address] Glucose [Mass/Vol] 282 mg/dL High [address] [place] [address] Comment on above: Performed By: #### C NATIVIDAD [facility], 37059-9 #### [facility] ([id number]) [address], [address] [place] [address] Glucose [Mass/Vol] 330 mg/dL High [address] [place] [address] Comment on above: Performed By: #### Renita HENSON [facility], 15670-9 #### [facility] ([id number]) [address], [address] [place] [address] Glucose [Mass/Vol] 173 mg/dL High [address] [place] [address] Comment on above: Performed By: #### 2 0578-1 #### [facility] ([id number]) [address], [address] [place] [address] CA 125on 07-13-2025 CA 125 157 U/mL High <=35 [facility] Comment on above: Result Comment: The method used for this test is [facility] DXI chemiluminescent immunoassay. Values obtained by different assay methods cannot be used interchangeably. Performed By: #### C BCA CMP, 08095-1 #### [facility] ([id number]) [address], [address] [place] [address] CANCER ANTIGEN 15-3on 2024 CA 15 3 27.6 U/mL Normal <=31.3 [facility] Comment on above: Result Comment: The method used for this test is [facility] DXI chemiluminescent immunoassay. Values obtained by different assay methods cannot be used interchangeably. Performed By: #### C NATIVIDAD [facility], 49181-4 #### [facility] ([id number]) [address] [facility], [address] [place] [address] CANCER ANTIGEN 27.29on 07-13 CANCER ANTGN 27.29 118.5 U/mL High <=39.0 [facility] Comment on above: Result Comment: INTE RPRETIVE [...] for a diagnosis of malignancy. Methodology: [employer] IM BR 27.29 (BR) chemiluminescent immunoassay was used. Results obtained with different assay methods or kits cannot be used interchangeably. Performed By: Independent IP [address] [place] [address] Floor Helper: Brendon Ruiz MD, PhD CLIA Number: [id number] Performed By: #### C NATIVIDAD [facility], 41120-2 #### [facility] ([id number]) [address] [facility], [address] [place] [address] CBC WITH AUTO DIFFERENTIALon 07-13-2025 BASOPHILS ABSOLUTE COUNT (10*3/UL) BY AUTOMATED COUNT 0.1 10*3/uL Normal 0.0-0.2 [facility] Comment on above: Performed By: #### 2 0578-1 #### [facility] ([id number]) [address] [facility], [address] [place] [address] BASOPHILS RELATIVE PERCENT BY AUTOMATED COUNT 0.7 % Normal [facility] Comment on above: Performed By: #### 2 0578-1 #### [facility] ([id number]) [address], [address] [place] [address] CELLAVISION DIFFERENTIAL TYPE AUTOMATED DIFFERENTIAL Normal [facility] Comment on above: Performed By: #### 2 0578-1 #### [facility] ([id number]) [address] [address] [place] [address] Eosinophils (Bld) [#/Vol] 0.4 10*3/uL Normal 0.0-0.4 [facility] Comment on above: Performed By: #### 2 0578-1 #### [facility] ([id number]) [address] [address] [place] [address] EOSINOPHILS RELATIVE PERCENT BY AUTOMATED COUNT 5.0 % Normal [facility] Comment on above: Performed By: #### 2 0578-1 #### [facility] ([id number]) [address] [address] [place] [address] Erythrocyte distribution width (RBC) [Ratio] 17.9 % High 11.5-15 [facility] Comment on above: Performed By: #### 2 0578-1 #### [facility] ([id number]) [address] [address] [place] [address] Hematocrit (Bld) [Volume fraction] 29.8 % Low 35-47 [facility] Comment on above: Performed By: #### 2 0578-1 #### [facility] ([id number]) [address] [address] [place] [address] Hemoglobin (Bld) [Mass/Vol] 9.8 g/dL Low 11.7-15.5 [facility] Comment on above: Performed By: #### 2 0578-1 #### [facility] ([id number]) [address] [address] [place] [address] LYMPHOCYTES ABSOLUTE COUNT (10*3/UL) BY AUTOMATED COUNT 1.9 10*3/uL Normal 1.0-3.5 [facility] Comment on above: Performed By: #### 2 0578-1 #### [facility] ([id number]) [address] [address] LYMPHOCYTES RELATIVE PERCENT BY AUTOMATED COUNT 25.3 % Normal [facility] Comment on above: Performed By: #### 2 0578-1 #### [facility] ([id number]) [address] [address] [place] [address] MCH (RBC) [Entitic mass] 26.6 pg Low 27-34 [facility] Comment on above: Performed By: #### 2 0578-1 #### [facility] ([id number]) [address] [address] [place] [address] MCHC (RBC) [Mass/Vol] 33.0 g/dL Normal 32-36 [facility] Comment on above: Performed By: #### 2 0578-1 #### [facility] ([id number]) [address] [address] [place] [address] MCV (RBC) [Entitic vol] 81 fL Normal 80-100 [facility] Comment on above: Performed By: #### 2 0578-1 #### [facility] ([id number]) [address] [address] [place] [address] MONOCYTES ABSOLUTE COUNT (10*3/UL) BY AUTOMATED COUNT 1.0 10*3/uL High 0.0-0.9 [facility] Comment on above: Performed By: #### 2 0578-1 #### [facility] ([id number]) [address] [address] [place] [address] MONOCYTES RELATIVE PERCENT BY AUTOMATED COUNT 14.0 % Normal [facility] Comment on above: Performed By: #### 2 0578-1 #### [facility] ([id number]) [address] [address] [place] [address] NEUTROPHILS ABSOLUTE COUNT BY AUTOMATED COUNT 4.0 10*3/uL Normal 1.5-6.6 [facility] Comment on above: Performed By: #### 2 0578-1 #### [facility] ([id number]) [address] [address] [place] [address] NEUTROPHILS RELATIVE PERCENT BY AUTOMATED COUNT 55.0 % Normal [facility] Comment on above: Performed By: #### 2 0578-1 #### [facility] ([id number]) [address] [address] [place] [address] Platelet mean volume (Bld) [Entitic vol] 8.1 fL Normal 7-12 [facility] Comment on above: Performed By: #### 2 0578-1 #### [facility] ([id number]) [address] [address] [place] [address] Platelets (Bld) [#/Vol] 222 10*3/uL Normal 150-450 [facility] Comment on above: Performed By: #### 2 0578-1 #### [facility] ([id number]) [address], [facility] [address] [place] [address] RBC COUNT 3.69 X10E12/L Low 3.8-5.2 [facility] Comment on above: Performed By: #### 2 0578-1 #### [facility] ([id number]) [address] [address] [place] [address] WBC (Bld) [#/Vol] 7.4 10*3/uL Normal 4-11 [facility] Comment on above: Performed By: #### 2 0578-1 #### [facility] ([id number]) [address], [address] [place] [address] COMPREHENSIVE METABOLIC PANE Dickson 07-13-2025 Albumin [Mass/Vol] 3.7 g/dL Normal 3.2-5.3 [facility] Comment on above: Performed By: #### 2 0578-1 #### [facility] ([id number]) [address], [address] [place] [address] ALP [Catalytic activity/Vol] 133 U/L High 39-130 [facility] Comment on above: Performed By: #### 2 0578-1 #### [facility] ([id number]) [address], [address] [place] [address] ALT [Catalytic activity/Vol] 10 U/L Normal <=31 [facility] Comment on above: Performed By: #### 2 0578-1 #### [facility] ([id number]) [address], [address] [place] [address] Anion gap [Moles/Vol] 9 mmol/L Normal 5-15 [facility] Comment on above: Performed By: #### 2 0578-1 #### [facility] ([id number]) [address], [address] [place] [address] AST [Catalytic activity/Vol] 24 U/L Normal <=41 [facility] Comment on above: Performed By: #### 2 0578-1 #### [facility] ([id number]) [address], [address] [place] [address] Bilirubin [Mass/Vol] 0.4 mg/dL Normal 0.3-1.2 [facility] Comment on above: Performed By: #### 2 0578-1 #### [facility] ([id number]) [address], [address] [place] [address] Calcium [Mass/Vol] 9.4 mg/dL Normal 8.5-10.5 [facility] Comment on above: Performed By: #### 2 0578-1 #### [facility] ([id number]) [address], [address] [place] [address] Chloride [Moles/Vol] 95 mmol/L Low 98-109 [facility] Comment on above: Performed By: #### 2 0578-1 #### [facility] ([id number]) [address], [address] [place] [address] CO2 [Moles/Vol] 32 mmol/L Normal 22-32 [facility] Comment on above: Performed By: #### 2 0578-1 #### [facility] ([id number]) [address], [address] [place] [address] Creatinine [Mass/Vol] 1.73 mg/dL High 0.40-1.00 [facility] Comment on above: Result Comment: METH OD TRACEABLE TO IDMS STANDARD Performed By: #### 2 0578-1 #### [facility] ([id number]) [address], [address] [place] [address] GFR/1.73 sq M.predicted among non-blacks MDRD (S/P/Bld) [Vol rate/Area] 30 mL/min/{1.73_m2} Low >=60 [facility] Comment on above: Result Comment: Repo rted eGFR is based on the CKD-EPI 2020 equation that does not use a race coefficient. Performed By: #### 2 0578-1 #### [facility] ([id number]) [address], [address] [place] [address] Glucose [Mass/Vol] 160 mg/dL High 65-99 [facility] Comment on above: Performed By: #### 2 0578-1 #### [facility] ([id number]) [address], [address] [place] [address] Potassium [Moles/Vol] 4.1 mmol/L Normal 3.5-5.0 [facility] Comment on above: Performed By: #### 2 0578-1 #### [facility] ([id number]) [address], [address] [place] [address] Protein [Mass/Vol] 7.3 g/dL Normal 6.0-8.0 [facility] Comment on above: Performed By: #### 2 0578-1 #### [facility] ([id number]) [address], [address] [place] [address] Sodium [Moles/Vol] 136 mmol/L Normal 134-146 [facility] Comment on above: Performed By: #### 2 0578-1 #### [facility] ([id number]) [address] [place] [address] Urea nitrogen [Mass/Vol] 24 mg/dL Normal 5-27 [facility] Comment on above: Performed By: #### 2 0578-1 #### [facility] ([id number]) [address] [place] [address] FERRITINon 07-13-2025 Ferritin [Mass/Vol] 290 ng/mL Normal 11-307 [facility] Comment on above: Performed By: #### C BCA, CMP, 96450-5 #### [facility] ([id number]) [address], [address] [place] [address] FOLATEon 07-13-2025 FOLIC ACID 7.9 ng/mL Normal >5.8 [facility] Comment on above: Performed By: #### C BCA, CMP, #### [facility] ([id number]) [address], [address] [place] [address] HAPTOGLOBINon 07-13-2025 HAPTOGLOBIN 258 mg/dL High 32-228 [facility] Comment on above: Performed By: #### C BCA, CMP, #### [facility] ([id number]) [address] [facility], [address] [place] [address] HE4, Son 07-13-2025 HE4, S 272 pmol/L High <=140 [facility] Comment on above: Result Comment: ADDITIONAL INFORMATION The testing method is an electrochemiluminescence assay manufactured by [employer] and performed on the Modular or Pilar system. Values obtained with different assay methods or kits may be different and cannot be used interchangeably. Test results cannot be interpreted as absolute evidence for the presence or absence of malignant disease. Test Performed by: [facility] [address] [id number] [employer] Department Manager: Radha Mccormack Ph.D.; CLIA# [id number] Performed By: #### C NATIVIDAD CMP, #### [facility] ([id number]) [address] [facility], [address] [place] [address] HEMOGLOBIN AND HEMATOCRIT, B LOODon 07-13-2025 HEMOGLOBIN AND HEMATOCRIT, BLOOD HH HEMOGLOBIN AND HEMATOCRIT, BLOOD Cancelled Normal [facility] IRON AND TIBCon 07-13-2025 Iron [Mass/Vol] 24 ug/dL Low 50-170 [facility] Comment on above: Performed By: #### C BCA CMP, #### [facility] ([id number]) [address] [facility], [address] [place] [address] IRON BINDING 235 ug/dL Low 250-425 [facility] Comment on above: Performed By: #### C BCA CMP, #### [facility] ([id number]) [address] [facility] [address] [place] [address] IRON SATURATION 10 % SATURATION Low 15-50 [facility] Comment on above: Performed By: #### C BCA, CMP, #### [facility] ([id number]) [address] [facility] [address] [place] [address] Transferrin [Mass/Vol] 168 mg/dL Normal 168-336 [facility] Comment on above: Performed By: #### C NATIVIDAD, CMP, 38696-9 #### [facility] ([id number]) [address] [address] [place] [address] MAGNESIUMon 07-13-2025 Magnesium [Mass/Vol] 2.1 mg/dL Normal 1.8-2.6 [facility] Comment on above: Performed By: #### 2 0578-1 #### [facility] ([id number]) [address] [address] [place] [address] PROTIME AND INRon 07-13-2025 INR 1.0 Normal 0.9-1.2 [facility] Comment on above: Performed By: #### 2 0578-1 #### [facility] ([id number]) [address] [place] [address] PT Coag (PPP) [Time] 11.1 s Normal 9.8-13.2 [facility] Comment on above: Performed By: #### 2 0578-1 #### [facility] ([id number]) [address] [address] [place] [address] VITAMIN B12on 07-13-2025 Cobalamin (Vitamin B12) [Mass/Vol] 1015 pg/mL High 180-914 [facility] Comment on above: Performed By: #### C NATIVIDAD, CMP, #### [facility] ([id number]) [address] [address] [place] [address] XR FEMUR LT 2+ VIEWSon 07-13 XR [...] Barnes MD on 07/13/2025 11:54 AM Normal [facility] XR FEMUR RT 2+ VIEWSon 07-13 XR [...] Barnes MD on 07/13/2025 11:52 AM Normal [facility] XR FEMUR RT 2+ VIEWS XR FEMUR [...] Barnes MD on 07/13/2025 9:53 AM Normal [facility] 36on 07-12-2025 36 Please see message b elow. Pt's daughter called asking if you go to [facility], as pt was transferred there last night and had MRI this morning and needs shunt checked. I told pt's daughter that I will notify you of this. Normal [facility] APTTon 07-12-2025 aPTT Coag (Bld) [Time] 26 s Normal 26-37 [facility] Comment on above: Performed By: #### 2 0578-1 #### [facility] ([id number]) [address] [place] [address] BEDSIDE GLUCOSEon 07-12-2025 Glucose [Mass/Vol] 319 mg/dL High 65-99 [facility] Comment on above: Performed By: #### C BCA, [facility], 31893-1 #### [facility] ([id number]) [address] [place] [address] Glucose [Mass/Vol] 214 mg/dL High 65-99 [facility] Comment on above: Performed By: #### B EDG ####[address] [address] VIR CBC WITH AUTO DIFFERENTIALon 07-12-2025 BASOPHILS ABSOLUTE COUNT (10*3/UL) BY AUTOMATED COUNT 0.1 10*3/uL Normal 0.0-0.2 [facility] Comment on above: Performed By: #### C BCA ####[address] [address] VIR BASOPHILS RELATIVE PERCENT BY AUTOMATED COUNT 0.7 % Normal [facility] Comment on above: Performed By: #### C BCA ####[facility] ([address] [address] VIR CELLAVISION DIFFERENTIAL TYPE AUTOMATED DIFFERENTIAL Normal [facility] Comment on above: Performed By: #### C BCA ####[address] [address] VIR Eosinophils (Bld) [#/Vol] 0.4 10*3/uL Normal 0.0-0.4 [facility] Comment on above: Performed By: #### C BCA ####[facility] ([address] [address] VIR EOSINOPHILS RELATIVE PERCENT BY AUTOMATED COUNT 5.3 % Normal [facility] Comment on above: Performed By: #### C BCA ####[facility] ([address] [address] VIR Erythrocyte distribution width (RBC) [Ratio] 17.9 % High 11.5-15 [facility] Comment on above: Performed By: #### C BCA ####[facility] ([address] [address] VIR Hematocrit (Bld) [Volume fraction] 27.2 % Low 35-47 [facility] Comment on above: Performed By: #### C BCA ####[facility] ([address] [address] VIR Hemoglobin (Bld) [Mass/Vol] 9.0 g/dL Low 11.7-15.5 [facility] Comment on above: Performed By: #### C BCA ####[facility] ([address] [address] VIR LYMPHOCYTES ABSOLUTE COUNT (10*3/UL) BY AUTOMATED COUNT 2.5 10*3/uL Normal 1.0-3.5 [facility] Comment on above: Performed By: #### C BCA ####[facility] ([address] [address] VIR LYMPHOCYTES RELATIVE PERCENT BY AUTOMATED COUNT 33.4 % Normal [facility] Comment on above: Performed By: #### C BCA ####[facility] ([address] [address] VIR MCH (RBC) [Entitic mass] 26.7 pg Low 27-34 [facility] Comment on above: Performed By: #### C BCA ####[facility] ([address] [address] VIR MCHC (RBC) [Mass/Vol] 33.0 g/dL Normal 32-36 [facility] Comment on above: Performed By: #### C BCA ####[facility] ([address] [place] [address] VIR MCV (RBC) [Entitic vol] 81 fL Normal 80-100 [facility] Comment on above: Performed By: #### C BCA ####[facility] ([address] [address] VIR MONOCYTES ABSOLUTE COUNT (10*3/UL) BY AUTOMATED COUNT 1.0 10*3/uL High 0.0-0.9 [facility] Comment on above: Performed By: #### C BCA ####[facility] ([address] [address] VIR MONOCYTES RELATIVE PERCENT BY AUTOMATED COUNT 13.1 % Normal [facility] Comment on above: Performed By: #### C BCA ####[facility] ([address] [address] VIR NEUTROPHILS ABSOLUTE COUNT BY AUTOMATED COUNT 3.6 10*3/uL Normal 1.5-6.6 [facility] Comment on above: Performed By: #### C BCA ####[facility] ([address] [address] VIR NEUTROPHILS RELATIVE PERCENT BY AUTOMATED COUNT 47.5 % Normal [facility] Comment on above: Performed By: #### C BCA ####[facility] ([address] [address] VIR Platelet mean volume (Bld) [Entitic vol] 8.2 fL Normal 7-12 [facility] Comment on above: Performed By: #### C BCA ####[facility] ([address] [address] VIR Platelets (Bld) [#/Vol] 230 10*3/uL Normal 150-450 [facility] Comment on above: Performed By: #### C BCA ####[facility] ([address] [place] [address] VIR RBC COUNT 3.36 X10E12/L Low 3.8-5.2 [facility] Comment on above: Performed By: #### C BCA ####[facility] ([address] [place] [address] VIR WBC (Bld) [#/Vol] 7.6 10*3/uL Normal 4-11 [facility] Comment on above: Performed By: #### C BCA ####[facility] ([address] [place] [address] VIR COMPREHENSIVE METABOLIC PANE Dickson 07-12-2025 Albumin [Mass/Vol] 3.1 g/dL Low 3.2-5.3 [facility] Comment on above: Performed By: #### C MP ####[facility] ([address] [place] [address] VIR ALP [Catalytic activity/Vol] 121 U/L Normal 39-130 [facility] Comment on above: Performed By: #### C MP ####[facility] ([address] [place] [address] VIR ALT [Catalytic activity/Vol] 15 U/L Normal <=31 [facility] Comment on above: Performed By: #### C MP ####[facility] ([address] [place] [address] VIR Anion gap [Moles/Vol] 10 mmol/L Normal 5-15 [facility] Comment on above: Performed By: #### C MP ####[facility] ([address] [place] [address] VIR AST [Catalytic activity/Vol] 29 U/L Normal <=41 [facility] Comment on above: Performed By: #### C MP ####[facility] ([address] [place] [address] VIR Bilirubin [Mass/Vol] 0.6 mg/dL Normal 0.3-1.2 [facility] Comment on above: Performed By: #### C MP ####[facility] ([address] [place] [address] VIR Calcium [Mass/Vol] 8.9 mg/dL Normal 8.5-10.5 [facility] Comment on above: Performed By: #### C MP ####[facility] ([address] [place] [address] VIR Chloride [Moles/Vol] 94 mmol/L Low 98-109 [facility] Comment on above: Performed By: #### C MP ####[facility] ([address] [place] [address] VIR CO2 [Moles/Vol] 30 mmol/L Normal 22-32 [facility] Comment on above: Performed By: #### C MP ####[facility] ([address] [place] [address] VIR Creatinine [Mass/Vol] 1.75 mg/dL High 0.40-1.00 [facility] Comment on above: Result Comment: METH OD TRACEABLE TO IDMS STANDARD Performed By: #### C MP ####[facility] ([address] [address] VIR GFR/1.73 sq M.predicted among non-blacks MDRD (S/P/Bld) [Vol rate/Area] 29 mL/min/{1.73_m2} Low >=60 [facility] Comment on above: Result Comment: eGFR not reported due to non-numeric value for Creatinine.Reported eGFR is based on theCKD-EPI 2020 equation that doesnot use a race coefficient. Performed By: #### C MP ####[facility] ([address] [place] [address] VIR Glucose [Mass/Vol] 139 mg/dL High 65-99 [facility] Comment on above: Performed By: #### C MP ####[facility] ([address] [place] [address] VIR Potassium [Moles/Vol] 4.2 mmol/L Normal 3.5-5.0 [facility] Comment on above: Performed By: #### C MP ####[facility] ([address] [place] [address] VIR Protein [Mass/Vol] 6.8 g/dL Normal 6.0-8.0 [facility] Comment on above: Performed By: #### C MP ####[address] [place] [address] VIR Sodium [Moles/Vol] 134 mmol/L Normal 134-146 [facility] Comment on above: Performed By: #### C MP ####[facility] ([address] [place] [address] VIR Urea nitrogen [Mass/Vol] 27 mg/dL Normal 5-27 [facility] Comment on above: Performed By: #### C MP ####[facility] ([address] [place] [address] VIR MAGNESIUMon 07-12-2025 Magnesium [Mass/Vol] 2.1 mg/dL Normal 1.8-2.6 [facility] Comment on above: Performed By: #### M G ####[facility] ([address] [place] [address] VIR MR PELVIS W WO CONTon 2024 MR PELVIS W WO CONT Normal [facility] PROTIME AND INRon 07-12-2025 INR 1.0 Normal 0.9-1.2 [facility] Comment on above: Performed By: #### 2 0578-1 #### [facility] ([id number]) [address], [address] [place] [address] PT Coag (PPP) [Time] 11.2 s Normal 9.8-13.2 [facility] Comment on above: Performed By: #### 2 0578-1 #### [facility] ([id number]) [address], [address] [place] [address] TYPE AND SCREENon 07-12-2025 ABO_INTEP O Normal [facility] Comment on above: Performed By: #### 2 0578-1 #### [facility] ([id number]) [address], [address] [place] [address] RH_INTEP Negative Normal [facility] Comment on above: Performed By: #### 2 0578-1 #### [facility] ([id number]) [address], [address] [place] [address] XR CHEST 1 VWon 07-12-2025 XR CHEST 1 VW XR CHEST 1 VW EXAM: XR CHEST 1 VW CLINICAL INFORMATION: pre op. COMPARISON: 07/02/2025 FINDINGS: There are no pleural effusions. There are low lung volumes with some associated hypoventilatory changes. Stable cardiomediastinal silhouette. 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 There is partial visualization of a right-sided TELEPHONE ANSWERING SERVICE OPERATOR shunt. IMPRESSION: 1. No acute cardiopulmonary disease. 2. Postsurgical changes, as above. Finalized by Laci Lima MD on 07/12/2025 10:33 PM Normal [facility] XR FEMUR RT 2+ VIEWSon 07-12 XR [...] Golden MD on 07/12/2025 8:50 PM Normal [facility] XR HIP RT 2-3 VIEWS [...] joint. There is partial visualization of a TELEPHONE ANSWERING SERVICE OPERATOR shunt catheter with the tip terminating in [...] Lima MD on 07/12/2025 9:05 PM Normal [facility] XR SKULL 1-3 VWS PARTIALon 0 07-12-2025 XR SKULL 1-3 VWS PARTIAL XR SKULL 1-3 VWS PARTIAL XR SKULL 1-3 VWS PARTIAL: 07/12/2025 PROVIDED HISTORY: * 80 years old Female * Codman Hakim TELEPHONE ANSWERING SERVICE OPERATOR Shunt, please focus on right sided shunt reservoir for setting COMPARISON: None. FINDINGS/IMPRESSION: 1. Ventriculostomy catheter, partially visualized with, Codman Hakim programmable shunt set to approximately 120. 2. Otherwise no acute osseous abnormality. Finalized by Doug Funes MD on 07/12/2025 10:04 PM Normal [facility] 36on 07-11-2025 36 GABBY Liu from [facility] in [place] called asking if pt's shunt is MRI compatible. Noe was notified that it is MRI compatible but will need to have her shunt checked after the MRI. I asked Noe if they have someone in house to do so. Noe stated that they did not and are thinking of transferring pt to either [facility] or [facility]. I had advised Noe to make sure that [facility] has someone to check shunt. Noe verbalized understanding. Normal [facility] BEDSIDE GLUCOSEon 07-11-2025 Glucose [Mass/Vol] 184 mg/dL High 65-99 [facility] Comment on above: Performed By: #### B EDG ####[facility] ([address] [place] [address] VIR Glucose [Mass/Vol] 306 mg/dL High [address] [place] [address] Comment on above: Performed By: #### B EDG ####[facility] ([address] [place] [address] VIR Glucose [Mass/Vol] 255 mg/dL High [address] Comment on above: Performed By: #### B EDG ####[facility] ([address] [place] [address] VIR CBC WITH AUTO DIFFERENTIALon 07-11-2025 BASOPHILS ABSOLUTE COUNT (10*3/UL) BY AUTOMATED COUNT 0.0 10*3/uL Normal 0.0-0.2 [facility] Comment on above: Performed By: #### C BCA ####[facility] ([address] [place] [address] VIR BASOPHILS RELATIVE PERCENT BY AUTOMATED COUNT 0.5 % Normal [facility] Comment on above: Performed By: #### C BCA ####[facility] ([address] [address] VIR CELLAVISION DIFFERENTIAL TYPE AUTOMATED DIFFERENTIAL Normal [facility] Comment on above: Performed By: #### C BCA ####[facility] ([address] [address] VIR Eosinophils (Bld) [#/Vol] 0.3 10*3/uL Normal 0.0-0.4 [facility] Comment on above: Performed By: #### C BCA ####[address] [address] VIR EOSINOPHILS RELATIVE PERCENT BY AUTOMATED COUNT 3.6 % Normal [facility] Comment on above: Performed By: #### C BCA ####[facility] ([address] [address] VIR Erythrocyte distribution width (RBC) [Ratio] 18.3 % High 11.5-15 [facility] Comment on above: Performed By: #### C BCA ####[address] [address] VIR Hematocrit (Bld) [Volume fraction] 28.7 % Low 35-47 [facility] Comment on above: Performed By: #### C BCA ####[address] [address] VIR Hemoglobin (Bld) [Mass/Vol] 9.5 g/dL Low 11.7-15.5 [facility] Comment on above: Performed By: #### C BCA ####[address] [address] VIR LYMPHOCYTES ABSOLUTE COUNT (10*3/UL) BY AUTOMATED COUNT 2.3 10*3/uL Normal 1.0-3.5 [facility] Comment on above: Performed By: #### C BCA ####[facility] ([address] [address] VIR LYMPHOCYTES RELATIVE PERCENT BY AUTOMATED COUNT 27.6 % Normal [facility] Comment on above: Performed By: #### C BCA ####[facility] ([address] [address] VIR MCH (RBC) [Entitic mass] 26.7 pg Low 27-34 [facility] Comment on above: Performed By: #### C BCA ####[facility] ([address] [address] VIR MCHC (RBC) [Mass/Vol] 33.0 g/dL Normal 32-36 [facility] Comment on above: Performed By: #### C BCA ####[facility] ([address] [address] VIR MCV (RBC) [Entitic vol] 81 fL Normal 80-100 [facility] Comment on above: Performed By: #### C BCA ####[facility] ([address] [address] VIR MONOCYTES ABSOLUTE COUNT (10*3/UL) BY AUTOMATED COUNT 1.0 10*3/uL High 0.0-0.9 [facility] Comment on above: Performed By: #### C BCA ####[facility] ([address] [address] VIR MONOCYTES RELATIVE PERCENT BY AUTOMATED COUNT 11.7 % Normal [facility] Comment on above: Performed By: #### C BCA ####[facility] ([address] [address] VIR NEUTROPHILS ABSOLUTE COUNT BY AUTOMATED COUNT 4.7 10*3/uL Normal 1.5-6.6 [facility] Comment on above: Performed By: #### C BCA ####[facility] ([facility])[address] [place] [address].[place] [address] VIR NEUTROPHILS RELATIVE PERCENT BY AUTOMATED COUNT 56.6 % Normal [facility] Comment on above: Performed By: #### C BCA ####[facility] ([facility])[address] [place] [address].[place] [address] VIR Platelet mean volume (Bld) [Entitic vol] 8.6 fL Normal 7-12 [facility] Comment on above: Performed By: #### C BCA ####[facility] ([address] [place] [address] VIR Platelets (Bld) [#/Vol] 241 10*3/uL Normal 150-450 [facility] Comment on above: Performed By: #### C BCA ####[facility] ([address] [place] [address] VIR RBC COUNT 3.54 X10E12/L Low 3.8-5.2 [facility] Comment on above: Performed By: #### C BCA ####[facility] ([address] [place] [address] VIR WBC (Bld) [#/Vol] 8.3 10*3/uL Normal 4-11 [facility] Comment on above: Performed By: #### C BCA ####[facility] ([address] [place] [address] VIR COMPREHENSIVE METABOLIC PANE Dickson 07-11-2025 Albumin [Mass/Vol] 3.2 g/dL Normal 3.2-5.3 [facility] Comment on above: Performed By: #### C MP ####[facility] ([address] [place] [address] VIR ALP [Catalytic activity/Vol] 118 U/L Normal 39-130 [facility] Comment on above: Performed By: #### C MP ####[facility] [place] [address] VIR ALT [Catalytic activity/Vol] 15 U/L Normal <=31 [facility] Comment on above: Performed By: #### C MP ####[facility] ([facility] [address] VIR Anion gap [Moles/Vol] 11 mmol/L Normal 5-15 [facility] Comment on above: Performed By: #### C MP ####[facility] ([place] [address] [place] [address] VIR AST [Catalytic activity/Vol] 37 U/L Normal <=41 [facility] Comment on above: Performed By: #### C MP ####[facility] ([place] [address] [place] [address] VIR Bilirubin [Mass/Vol] 0.6 mg/dL Normal 0.3-1.2 [facility] Comment on above: Performed By: #### C MP ####[facility] ([place] [address] [place] [address] VIR Calcium [Mass/Vol] 9.1 mg/dL Normal 8.5-10.5 [facility] Comment on above: Performed By: #### C MP ####[facility] ([place] [address] [place] [address] VIR Chloride [Moles/Vol] 94 mmol/L Low 98-109 [facility] Comment on above: Performed By: #### C MP ####[facility] ([place] [address] [place] [address] VIR CO2 [Moles/Vol] 31 mmol/L Normal 22-32 [facility] Comment on above: Performed By: #### C MP ####[facility] ([place] [address] [place] [address] VIR Creatinine [Mass/Vol] 1.56 mg/dL High 0.40-1.00 [facility] Comment on above: Result Comment: METH OD TRACEABLE TO IDMS STANDARD Performed By: #### C MP ####[facility] ([address] [place] [address] VIR GFR/1.73 sq M.predicted among non-blacks MDRD (S/P/Bld) [Vol rate/Area] 34 mL/min/{1.73_m2} Low >=60 [facility] Comment on above: Result Comment: eGFR not reported due to non-numeric value for Creatinine.Reported eGFR is based on theCKD-EPI 2020 equation that doesnot use a race coefficient. Performed By: #### C MP ####[facility] ([address] [place] [address] VIR Glucose [Mass/Vol] 120 mg/dL High 65-99 [facility] Comment on above: Performed By: #### C MP ####[facility] ([address] [place] [address] VIR Potassium [Moles/Vol] 3.7 mmol/L Normal 3.5-5.0 [facility] Comment on above: Performed By: #### C MP ####[facility] ([address] [place] [address] VIR Protein [Mass/Vol] 7.0 g/dL Normal 6.0-8.0 [facility] Comment on above: Performed By: #### C MP ####[facility] ([address] [place] [address] VIR Sodium [Moles/Vol] 136 mmol/L Normal 134-146 [facility] Comment on above: Performed By: #### C MP ####[facility] ([address] [place] [address] VIR Urea nitrogen [Mass/Vol] 28 mg/dL High 5-27 [facility] Comment on above: Performed By: #### C MP ####[facility] ([address] [place] [address] VIR MAGNESIUMon 07-11-2025 Magnesium [Mass/Vol] 2.1 mg/dL Normal 1.8-2.6 [facility] Comment on above: Performed By: #### M G ####[facility] ([address] [place] [address] VIR Telephoneon 07-11-2025 Telephone [phone] Jb Dee 1945 F Date Provider Department Center 07/11/2025 STEFFI BROWN [facility] SURG Second Fl Family History Problem Relation Age of Onset Diabetes Mother Hypertension Father Coronary artery disease Father Family Status - Relation Status Age at Mother Father Normal [facility] BEDSIDE GLUCOSEon 07-10-2025 Glucose [Mass/Vol] 259 mg/dL High - [facility] Comment on above: Performed By: #### B EDG ####[facility] ([address] [address] VIR Glucose [Mass/Vol] 217 mg/dL High - [facility] Comment on above: Performed By: #### B EDG ####[facility] ([address] [address] VIR COMPREHENSIVE METABOLIC PANE Dickson 07-10-2025 Albumin [Mass/Vol] 3.5 g/dL Normal 3.2-5.3 [facility] Comment on above: Performed By: #### C MP ####[facility] ([address] [address] VIR ALP [Catalytic activity/Vol] 127 U/L Normal 39-130 [facility] Comment on above: Performed By: #### C MP ####[facility] ([address] [address] VIR ALT [Catalytic activity/Vol] 17 U/L Normal <=31 [facility] Comment on above: Performed By: #### C MP ####[facility] ([place] [address] [address] VIR Anion gap [Moles/Vol] 11 mmol/L Normal 5-15 [facility] Comment on above: Performed By: #### C MP ####[facility] ([place] [address] [place] [address] VIR AST [Catalytic activity/Vol] 33 U/L Normal <=41 [facility] Comment on above: Performed By: #### C MP ####[facility] ([place] [address] [place] [address] VIR Bilirubin [Mass/Vol] 0.5 mg/dL Normal 0.3-1.2 [facility] Comment on above: Performed By: #### C MP ####[facility] ([place] [address] [place] [address] VIR Calcium [Mass/Vol] 9.3 mg/dL Normal 8.5-10.5 [facility] Comment on above: Performed By: #### C MP ####[facility] ([place] [address] [place] [address] VIR Chloride [Moles/Vol] 94 mmol/L Low 98-109 [facility] Comment on above: Performed By: #### C MP ####[facility] ([place] [address] [place] [address] VIR CO2 [Moles/Vol] 30 mmol/L Normal 22-32 [facility] Comment on above: Performed By: #### C MP ####[facility] ([place] [address] [address] VIR Creatinine [Mass/Vol] 1.54 mg/dL High 0.40-1.00 [facility] Comment on above: Result Comment: METH OD TRACEABLE TO IDMS STANDARD Performed By: #### C MP ####[facility] ([address] [address] VIR GFR/1.73 sq M.predicted among non-blacks MDRD (S/P/Bld) [Vol rate/Area] 34 mL/min/{1.73_m2} Low >=60 [facility] Comment on above: Result Comment: eGFR not reported due to non-numeric value for Creatinine.Reported eGFR is based on theCKD-EPI 2020 equation that doesnot use a race coefficient. Performed By: #### C MP ####[facility] ([address] [address] VIR Glucose [Mass/Vol] 229 mg/dL High 65-99 [facility] Comment on above: Performed By: #### C MP ####[facility] ([address] [address] VIR Potassium [Moles/Vol] 4.1 mmol/L Normal 3.5-5.0 [facility] Comment on above: Performed By: #### C MP ####[address] [address] VIR Protein [Mass/Vol] 7.6 g/dL Normal 6.0-8.0 [facility] Comment on above: Performed By: #### C MP ####[facility] ([address] [address] VIR Sodium [Moles/Vol] 135 mmol/L Normal 134-146 [facility] Comment on above: Performed By: #### C MP ####[address] [place] [address] VIR Urea nitrogen [Mass/Vol] 30 mg/dL High 5-27 [facility] Comment on above: Performed By: #### C MP ####[facility] ([facility])[address] [facility] [place] [address] VIR XR Hip - right 3 Viewson [...] cystic changes adjacent concerning for pathologic fracture. [facility] Radiology Study observation (narrative) [facility] BEDSIDE GLUCOSEon 07-05-2025 Glucose [Mass/Vol] 237 mg/dL High 65-99 [facility] Comment on above: Performed By: #### C BCA #### [facility] ([facility]) [address] [place] [address] VIR Glucose [Mass/Vol] 238 mg/dL High 65-99 [facility] Comment on above: Performed By: #### C BCA #### [facility] ([facility]) [address] [place] [address] VIR Glucose [Mass/Vol] 140 mg/dL [facility]99 [facility] Comment on above: Performed By: #### C BCA #### [facility] ([facility]) [address] [place] [address] VIR Bedside Glucose *Place/Obtai n serum glucose if >500 per glucometer.on 07-05-2025 Glucose [Mass/Vol] 237 mg/dL High 65 - 99 mg/dL [facility] Interpretation and review of laboratory results Abnormal [facility] Glucose [Mass/Vol] 238 mg/dL High 65 - 99 mg/dL [facility] Interpretation and review of laboratory results Abnormal [facility] Glucose [Mass/Vol] 140 mg/dL High 65 - 99 mg/dL [facility] Interpretation and review of laboratory results Abnormal [facility] CBC WITH AUTO DIFFERENTIALon 07-05-2025 BASOPHILS ABSOLUTE COUNT (10*3/UL) BY AUTOMATED COUNT 0.0 10*3/uL Normal 0.0-0.2 [facility] Comment on above: Performed By: #### C BCA #### [facility] ([facility]) [address] [place] [address] VIR BASOPHILS RELATIVE PERCENT BY AUTOMATED COUNT 0.6 % Normal [facility] Comment on above: Performed By: #### C BCA #### [facility] ([facility]) [address] [place] [address] VIR CELLAVISION DIFFERENTIAL TYPE AUTOMATED DIFFERENTIAL [facility] Comment on above: Performed By: #### C BCA #### [facility] ([facility]) [address] [place] [address] VIR Eosinophils (Bld) [#/Vol] 0.3 10*3/uL Normal 0.0-0.4 [facility] Comment on above: Performed By: #### C BCA #### [facility] ([facility]) [address] [place] [address] VIR EOSINOPHILS RELATIVE PERCENT BY AUTOMATED COUNT 3.8 % Normal [facility] Comment on above: Performed By: #### C BCA #### [facility] ([facility]) [address] [place] [address] VIR Erythrocyte distribution width (RBC) [Ratio] 17.7 % High 11.5-15 [facility] Comment on above: Performed By: #### C BCA #### [facility] ([facility]) [address] [place] [address] VIR Hematocrit (Bld) [Volume fraction] 27.5 % Low 35-47 [facility] Comment on above: Performed By: #### C BCA #### [facility] ([facility]) [address] [place] [address] VIR Hemoglobin (Bld) [Mass/Vol] 9.1 g/dL Low 11.7-15.5 [facility] Comment on above: Performed By: #### C BCA #### [facility]) [address] [place] [address] VIR LYMPHOCYTES ABSOLUTE COUNT (10*3/UL) BY AUTOMATED COUNT 1.4 10*3/uL Normal 1.0-3.5 [facility] Comment on above: Performed By: #### C BCA #### [facility] ([facility]) [address] [place] [address] VIR LYMPHOCYTES RELATIVE PERCENT BY AUTOMATED COUNT 19.9 % Normal [facility] Comment on above: Performed By: #### C BCA #### [facility] ([address] [address] VIR MCH (RBC) [Entitic mass] 27.1 pg Normal 27-34 [facility] Comment on above: Performed By: #### C BCA #### [address] [address] VIR MCHC (RBC) [Mass/Vol] 33.3 g/dL Normal 32-36 [facility] Comment on above: Performed By: #### C BCA #### [facility]) [address] [place] [address] VIR MCV (RBC) [Entitic vol] 81 fL Normal 80-100 [facility] Comment on above: Performed By: #### C BCA #### [facility] ([facility]) [address] [place] [address] VIR MONOCYTES ABSOLUTE COUNT (10*3/UL) BY AUTOMATED COUNT 0.9 10*3/uL Normal 0.0-0.9 [facility] Comment on above: Performed By: #### C BCA #### [facility]) [address] [place] [address] VIR MONOCYTES RELATIVE PERCENT BY AUTOMATED COUNT 12.3 % Normal [facility] Comment on above: Performed By: #### C BCA #### [address] [address] VIR NEUTROPHILS ABSOLUTE COUNT BY AUTOMATED COUNT 4.4 10*3/uL Normal 1.5-6.6 [facility] Comment on above: Performed By: #### C BCA #### [facility] ([facility]) [address] [place] [address] VIR NEUTROPHILS RELATIVE PERCENT BY AUTOMATED COUNT 63.4 % Normal [facility] Comment on above: Performed By: #### C BCA #### [facility] ([facility]) [address] [place] [address] VIR Platelet mean volume (Bld) [Entitic vol] 8.3 fL Normal 7-12 [facility] Comment on above: Performed By: #### C BCA #### [facility] ([facility]) [address] [place] [address] VIR Platelets (Bld) [#/Vol] 253 10*3/uL Normal 150-450 [facility] Comment on above: Performed By: #### C BCA #### [facility] ([facility]) [address] [place] [address] VIR RBC COUNT 3.37 X10E12/L Low 3.8-5.2 [facility] Comment on above: Performed By: #### C BCA #### [facility] ([facility]) [address] [place] [address] VIR WBC (Bld) [#/Vol] 7.0 10*3/uL Normal 4-11 [facility] Comment on above: Performed By: #### C BCA #### [facility] ([facility]) [address] [place] [address] VIR CBC auto differentialon 06-16 Basophils (Bld) [#/Vol] 0 10*3/uL 0.0 - 0.2 10*3/uL [facility] Basophils/100 WBC (Bld) 0.6 % [facility] Differential cell count method Nom (Bld) AUTOMATED DIFFERENTIAL [facility] Eosinophils (Bld) [#/Vol] 0.3 10*3/uL 0.0 - 0.4 10*3/uL [facility] Eosinophils/100 WBC (Bld) 3.8 % [facility] Erythrocyte distribution width (RBC) [Ratio] 17.7 % High 11.5 - 15 % [facility] Hematocrit (Bld) [Volume fraction] 27.5 % Low 35 - 47 % [facility] Hemoglobin (Bld) [Mass/Vol] 9.1 g/dL Low 11.7 - 15.5 g/dL [facility] Interpretation and review of laboratory results Abnormal [facility] Lymphocytes (Bld) [#/Vol] 1.4 10*3/uL 1.0 - 3.5 10*3/uL [facility] Lymphocytes/100 WBC (Bld) 19.9 % [facility] MCH (RBC) [Entitic mass] 27.1 pg 27 - 34 pg [facility] MCHC (RBC) [Mass/Vol] 33.3 g/dL 32 - 36 g/dL [facility] MCV (RBC) [Entitic vol] 81 fL 80 - 100 fL [facility] Monocytes (Bld) [#/Vol] 0.9 10*3/uL 0.0 - 0.9 10*3/uL [facility] Monocytes/100 WBC (Bld) 12.3 % [facility] Neutrophils (Bld) [#/Vol] 4.4 10*3/uL 1.5 - 6.6 10*3/uL [facility] Neutrophils/100 WBC (Bld) 63.4 % [facility] Platelet mean volume (Bld) [Entitic vol] 8.3 fL 7 - 12 fL [facility] Platelets (Bld) [#/Vol] 253 10*3/uL [facility] RBC (Bld) [#/Vol] 3.37 10*6/uL Low [facility] WBC LM Ql (Sput) 7 [facility] COMPREHENSIVE METABOLIC PANE Dickson 07-05-2025 Albumin [Mass/Vol] 3.0 g/dL Low 3.2-5.3 [facility] Comment on above: Performed By: #### C BCA #### [facility] ([facility]) [address] [place] [address] 10128 VIR ALP [Catalytic activity/Vol] 116 U/L Normal 39-130 [facility] Comment on above: Performed By: #### C BCA #### [facility] ([facility]) [address] [place] [address]40 VIR ALT [Catalytic activity/Vol] 16 U/L Normal <=31 [facility] Comment on above: Performed By: #### C BCA #### [facility] ([facility]) [address] [place], [place] [id number] VIR Anion gap [Moles/Vol] 8 mmol/L Normal 5-15 [facility] Comment on above: Performed By: #### C BCA #### [facility]) [address] [place], [place] [address] VIR AST [Catalytic activity/Vol] 23 U/L Normal <=41 [facility] Comment on above: Performed By: #### C BCA #### [facility] ([facility]) [address] [place], [place] [id number] VIR Bilirubin [Mass/Vol] 0.7 mg/dL Normal 0.3-1.2 [facility] Comment on above: Performed By: #### C BCA #### [place] [id number] VIR Calcium [Mass/Vol] 9.1 mg/dL Normal 8.5-10.5 [facility] Comment on above: Performed By: #### C BCA #### [facility] ([facility]) [address] [place], [place] [address] VIR Chloride [Moles/Vol] 100 mmol/L Normal 98-109 [facility] Comment on above: Performed By: #### C BCA #### [facility] ([facility]) [address] [place], [place] [id number] VIR CO2 [Moles/Vol] 27 mmol/L Normal 22-32 [facility] Comment on above: Performed By: #### C BCA #### [facility] ([address] [address] VIR Creatinine [Mass/Vol] 1.30 mg/dL High 0.40-1.00 [facility] Comment on above: Result Comment: METH OD TRACEABLE TO IDMS STANDARD Performed By: #### C BCA #### [facility] ([facility]) [address] [place] [address] 15473 VIR GFR/1.73 sq M.predicted among non-blacks MDRD (S/P/Bld) [Vol rate/Area] 42 mL/min/{1.73_m2} Low >=60 [facility] Comment on above: Result Comment: eGFR not reported due to non-numeric value for Creatinine. Reported eGFR is based on the CKD-EPI 2020 equation that does not use a race coefficient. Performed By: #### C BCA #### [address] [address] VIR Glucose [Mass/Vol] 157 mg/dL High 65-99 [facility] Comment on above: Performed By: #### C BCA #### [facility]) [address] [place] [address]66 VIR Potassium [Moles/Vol] 3.7 mmol/L Normal 3.5-5.0 [facility] Comment on above: Performed By: #### C BCA #### [address] [address] VIR Protein [Mass/Vol] 6.8 g/dL Normal 6.0-8.0 [facility] Comment on above: Performed By: #### C BCA #### [facility]) [address] [place] [address] VIR Sodium [Moles/Vol] 135 mmol/L Normal 134-146 [facility] Comment on above: Performed By: #### C BCA #### [facility]) [address] [place] [address]262 VIR Urea nitrogen [Mass/Vol] 16 mg/dL Normal 5-27 [facility] Comment on above: Performed By: #### C BCA #### [facility] ([facility]) [address] [place] [address] VIR Comprehensive metabolic pane dickson 07-05-2025 Albumin [Mass/Vol] 3 g/dL Low 3.2 - 5.3 g/dL [facility] ALP [Catalytic activity/Vol] 116 U/L 39 - 130 U/L [facility] ALT No additional P-5'-P [Catalytic activity/Vol] 16 U/L NINF - 31 U/L [facility] Anion gap [Moles/Vol] 8 mmol/L 5 - 15 mmol/L [facility] AST [Catalytic activity/Vol] 23 U/L NINF - 41 U/L [facility] Bilirubin [Mass/Vol] 0.7 mg/dL 0.3 - 1.2 mg/dL [facility] Calcium [Mass/Vol] 9.1 mg/dL 8.5 - 10.5 mg/dL [facility] Chloride [Moles/Vol] 100 mmol/L 98 - 109 mmol/L [facility] CO2 [Moles/Vol] 27 mmol/L 22 - 32 mmol/L [facility] Creatinine [Mass/Vol] 1.3 mg/dL High 0.40 - 1.00 mg/dL [facility] Comment on above: METHOD TRACEABLE TO IDCA STANDARD EGFR Non-Race Dependent 42 Low - PINF [facility] Comment on above: eGFR not reported du e to non-numeric value for Creatinine. Reported eGFR is based on the CKD-EPI 2020 equation that does not use a race coefficient. Glucose [Mass/Vol] 157 mg/dL High 65 - 99 mg/dL [facility] Potassium [Moles/Vol] 3.7 mmol/L 3.5 - 5.0 mmol/L [facility] Protein [Mass/Vol] 6.8 g/dL 6.0 - 8.0 g/dL [facility] Sodium [Moles/Vol] 135 mmol/L 134 - 146 mmol/L [facility] Urea nitrogen [Mass/Vol] 16 mg/dL 5 - 27 mg/dL [facility] MAGNESIUMon 07-05-2025 Magnesium [Mass/Vol] 1.7 mg/dL Low 1.8-2.6 [facility] Comment on above: Performed By: #### B EDG #### [facility] ([facility]) [address] [place] [address] VIR Magnesiumon 07-05-2025 Magnesium [Mass/Vol] 1.7 mg/dL Low 1.8 - 2.6 mg/dL [facility] No Panel Informationon 07-05 Interpretation and review of laboratory results Abnormal [facility] BEDSIDE GLUCOSEon 07-04-2025 Glucose [Mass/Vol] 189 mg/dL High 65-99 [facility] Comment on above: Performed By: #### B EDG #### [facility]) [address] [place] [address] VIR Glucose [Mass/Vol] 371 mg/dL High [address] Comment on above: Performed By: #### B EDG #### [facility] ([facility]) [address] [place] [address] VIR Glucose [Mass/Vol] 254 mg/dL High [address] Comment on above: Performed By: #### B EDG #### [facility]) [address] [place] [address] VIR Glucose [Mass/Vol] 144 mg/dL High [address] [place] [address] Comment on above: Performed By: #### B EDG #### [facility] ([facility]) [address] [place] [address] VIR Bedside Glucose *Place/Obtai n serum glucose if >500 per glucometer.on 07-04-2025 Glucose [Mass/Vol] 189 mg/dL High 65 - 99 mg/dL [facility] Interpretation and review of laboratory results Abnormal [facility] Glucose [Mass/Vol] 371 mg/dL High 65 - 99 mg/dL [facility] Interpretation and review of laboratory results Abnormal [facility] Glucose [Mass/Vol] 254 mg/dL High 65 - 99 mg/dL [facility] Interpretation and review of laboratory results Abnormal [facility] Glucose [Mass/Vol] 144 mg/dL High 65 - 99 mg/dL [facility] Interpretation and review of laboratory results Abnormal [facility] CBC WITH AUTO DIFFERENTIALon 07-04-2025 BASOPHILS ABSOLUTE COUNT (10*3/UL) BY AUTOMATED COUNT 0.1 10*3/uL Normal 0.0-0.2 [facility] Comment on above: Performed By: #### B EDG #### [facility] ([facility]) [address] [place] [address] VIR BASOPHILS RELATIVE PERCENT BY AUTOMATED COUNT 0.8 % Normal [facility] Comment on above: Performed By: #### B EDG #### [facility] ([facility]) [address] [place] [address] VIR CELLAVISION DIFFERENTIAL TYPE AUTOMATED DIFFERENTIAL Normal [facility] Comment on above: Performed By: #### B EDG #### [facility] ([facility]) [address] [place] [address] VIR Eosinophils (Bld) [#/Vol] 0.2 10*3/uL Normal 0.0-0.4 [facility] Comment on above: Performed By: #### B EDG #### [facility] ([facility]) [address] [place] [address] VIR EOSINOPHILS RELATIVE PERCENT BY AUTOMATED COUNT 2.9 % Normal [facility] Comment on above: Performed By: #### B EDG #### [facility] ([facility]) [address] [place] [address] VIR Erythrocyte distribution width (RBC) [Ratio] 17.5 % High 11.5-15 [facility] Comment on above: Performed By: #### B EDG #### [facility] ([facility]) [address] [place] [address] VIR Hematocrit (Bld) [Volume fraction] 30.4 % Low 35-47 [facility] Comment on above: Performed By: #### B EDG #### [facility] ([facility]) [address] [place] [address] VIR Hemoglobin (Bld) [Mass/Vol] 10.2 g/dL Low 11.7-15.5 [facility] Comment on above: Performed By: #### B EDG #### [facility] ([address] [address] VIR LYMPHOCYTES ABSOLUTE COUNT (10*3/UL) BY AUTOMATED COUNT 1.6 10*3/uL Normal 1.0-3.5 [facility] Comment on above: Performed By: #### B EDG #### [address] [address] VIR LYMPHOCYTES RELATIVE PERCENT BY AUTOMATED COUNT 24.2 % Normal [facility] Comment on above: Performed By: #### B EDG #### [address] [address] VIR MCH (RBC) [Entitic mass] 27.1 pg Normal 27-34 [facility] Comment on above: Performed By: #### B EDG #### [address] [address] VIR MCHC (RBC) [Mass/Vol] 33.5 g/dL Normal 32-36 [facility] Comment on above: Performed By: #### B EDG #### [facility] ([address] [address] VIR MCV (RBC) [Entitic vol] 81 fL Normal 80-100 [facility] Comment on above: Performed By: #### B EDG #### [address] [address] VIR MONOCYTES ABSOLUTE COUNT (10*3/UL) BY AUTOMATED COUNT 0.8 10*3/uL Normal 0.0-0.9 [facility] Comment on above: Performed By: #### B EDG #### [facility] ([facility]) [address] [place] [address] VIR MONOCYTES RELATIVE PERCENT BY AUTOMATED COUNT 12.8 % Normal [facility] Comment on above: Performed By: #### B EDG #### [facility] ([facility]) [address] [place] [address] VIR NEUTROPHILS ABSOLUTE COUNT BY AUTOMATED COUNT 3.9 10*3/uL Normal 1.5-6.6 [facility] Comment on above: Performed By: #### B EDG #### [facility] ([facility]) [address] [place] [address] VIR NEUTROPHILS RELATIVE PERCENT BY AUTOMATED COUNT 59.3 % Normal [facility] Comment on above: Performed By: #### B EDG #### [facility] ([facility]) [address] [place] [address] VIR Platelet mean volume (Bld) [Entitic vol] 8.9 fL Normal 7-12 [facility] Comment on above: Performed By: #### B EDG #### [facility] ([facility]) [address] [place] [address] VIR Platelets (Bld) [#/Vol] 304 10*3/uL Normal 150-450 [facility] Comment on above: Performed By: #### B EDG #### [facility] ([facility]) [address] [place] [address] VIR RBC COUNT 3.75 [id number]/L Low 3.8-5.2 [facility] Comment on above: Performed By: #### B EDG #### [facility] ([facility]) [address] [place] [address] VIR WBC (Bld) [#/Vol] 6.5 10*3/uL Normal 4-11 [facility] Comment on above: Performed By: #### B EDG #### [facility] ([facility]) [address] [place] [address] VIR CBC auto differentialon 08-2 0-2025 Basophils (Bld) [#/Vol] 0.1 10*3/uL 0.0 - 0.2 10*3/uL [facility] Basophils/100 WBC (Bld) 0.8 % [facility] Differential cell count method Nom (Bld) AUTOMATED DIFFERENTIAL [facility] Eosinophils (Bld) [#/Vol] 0.2 10*3/uL 0.0 - 0.4 10*3/uL [facility] Eosinophils/100 WBC (Bld) 2.9 % [facility] Erythrocyte distribution width (RBC) [Ratio] 17.5 % High 11.5 - 15 % [facility] Hematocrit (Bld) [Volume fraction] 30.4 % Low 35 - 47 % [facility] Hemoglobin (Bld) [Mass/Vol] 10.2 g/dL Low 11.7 - 15.5 g/dL [facility] Interpretation and review of laboratory results Abnormal [facility] Lymphocytes (Bld) [#/Vol] 1.6 10*3/uL 1.0 - 3.5 10*3/uL [facility] Lymphocytes/100 WBC (Bld) 24.2 % [facility] MCH (RBC) [Entitic mass] 27.1 pg 27 - 34 pg [facility] MCHC (RBC) [Mass/Vol] 33.5 g/dL 32 - 36 g/dL [facility] MCV (RBC) [Entitic vol] 81 fL 80 - 100 fL [facility] Monocytes (Bld) [#/Vol] 0.8 10*3/uL 0.0 - 0.9 10*3/uL [facility] Monocytes/100 WBC (Bld) 12.8 % [facility] Neutrophils (Bld) [#/Vol] 3.9 10*3/uL 1.5 - 6.6 10*3/uL [facility] Neutrophils/100 WBC (Bld) 59.3 % [facility] Platelet mean volume (Bld) [Entitic vol] 8.9 fL 7 - 12 fL [facility] Platelets (Bld) [#/Vol] 304 10*3/uL [facility] RBC (Bld) [#/Vol] 3.75 10*6/uL Low [facility] WBC LM Ql (Sput) 6.5 [facility] COMPREHENSIVE METABOLIC PANE Dickson 07-04-2025 Albumin [Mass/Vol] 3.4 g/dL Normal 3.2-5.3 [facility] Comment on above: Performed By: #### B EDG #### [facility] ([facility]) [address] [place] [address] VIR ALP [Catalytic activity/Vol] 130 U/L Normal 39-130 [facility] Comment on above: Performed By: #### B EDG #### [facility] ([facility]) [address] [place] [address] VIR ALT [Catalytic activity/Vol] 16 U/L Normal <=31 [facility] Comment on above: Performed By: #### B EDG #### [facility] ([facility]) [address] [place] [address] VIR Anion gap [Moles/Vol] 10 mmol/L Normal 5-15 [facility] Comment on above: Performed By: #### B EDG #### [facility] ([facility]) [address] [place] [address] VIR AST [Catalytic activity/Vol] 26 U/L Normal <=41 [facility] Comment on above: Performed By: #### B EDG #### [facility]) [address] [place] [address] VIR Bilirubin [Mass/Vol] 0.7 mg/dL Normal 0.3-1.2 [facility] Comment on above: Performed By: #### B EDG #### [facility] ([facility]) [address] [place] [address] VIR Calcium [Mass/Vol] 9.5 mg/dL Normal 8.5-10.5 [facility] Comment on above: Performed By: #### B EDG #### [facility]) [address] [place] [address] VIR Chloride [Moles/Vol] 100 mmol/L Normal 98-109 [facility] Comment on above: Performed By: #### B EDG #### [facility]) [address] [place] [address] VIR CO2 [Moles/Vol] 26 mmol/L Normal 22-32 [facility] Comment on above: Performed By: #### B EDG #### [facility]) [address] [place] [address] VIR Creatinine [Mass/Vol] 1.27 mg/dL High 0.40-1.00 [facility] Comment on above: Result Comment: METH OD TRACEABLE TO IDMS STANDARD Performed By: #### B EDG #### [address] [address] VIR GFR/1.73 sq M.predicted among non-blacks MDRD (S/P/Bld) [Vol rate/Area] 43 mL/min/{1.73_m2} Low >=60 [facility] Comment on above: Result Comment: eGFR not reported due to non-numeric value for Creatinine. Reported eGFR is based on the CKD-EPI 1 equation that does not use a race coefficient. Performed By: #### B EDG #### [address] [address] VIR Glucose [Mass/Vol] 121 mg/dL High 65-99 [facility] Comment on above: Performed By: #### B EDG #### [facility]) [address] [place] [address] VIR Potassium [Moles/Vol] 3.8 mmol/L Normal 3.5-5.0 [facility] Comment on above: Performed By: #### B EDG #### [facility]) [address] [place] [address]383 VIR Protein [Mass/Vol] 7.4 g/dL Normal 6.0-8.0 [facility] Comment on above: Performed By: #### B EDG #### [facility]) [address] [place] [address]210 VIR Sodium [Moles/Vol] 136 mmol/L Normal 134-146 [facility] Comment on above: Performed By: #### B EDG #### [facility] ([facility]) [address] [place] [address] VIR Urea nitrogen [Mass/Vol] 14 mg/dL Normal 5-27 [facility] Comment on above: Performed By: #### B EDG #### [facility] ([facility]) [address] [place] [address]856 VIR Comprehensive metabolic pane dickson 07-04-2025 Albumin [Mass/Vol] 3.4 g/dL 3.2 - 5.3 g/dL [facility] ALP [Catalytic activity/Vol] 130 U/L 39 - 130 U/L [facility] ALT No additional P-5'-P [Catalytic activity/Vol] 16 U/L NINF - 31 U/L [facility] Anion gap [Moles/Vol] 10 mmol/L 5 - 15 mmol/L [facility] AST [Catalytic activity/Vol] 26 U/L NINF - 41 U/L [facility] Bilirubin [Mass/Vol] 0.7 mg/dL 0.3 - 1.2 mg/dL [facility] Calcium [Mass/Vol] 9.5 mg/dL 8.5 - 10.5 mg/dL [facility] Chloride [Moles/Vol] 100 mmol/L 98 - 109 mmol/L [facility] CO2 [Moles/Vol] 26 mmol/L 22 - 32 mmol/L [facility] Creatinine [Mass/Vol] 1.27 mg/dL High 0.40 - 1.00 mg/dL [facility] Comment on above: METHOD TRACEABLE TO IDMS STANDARD EGFR Non-Race Dependent 43 Low - PINF [facility] Comment on above: eGFR not reported du e to non-numeric value for Creatinine. Reported eGFR is based on the CKD-EPI 2021 equation that does not use a race coefficient. Glucose [Mass/Vol] 121 mg/dL High 65 - 99 mg/dL [facility] Interpretation and review of laboratory results Abnormal [facility] Potassium [Moles/Vol] 3.8 mmol/L 3.5 - 5.0 mmol/L [facility] Protein [Mass/Vol] 7.4 g/dL 6.0 - 8.0 g/dL [facility] Sodium [Moles/Vol] 136 mmol/L 134 - 146 mmol/L [facility] Urea nitrogen [Mass/Vol] 14 mg/dL 5 - 27 mg/dL [facility] MAGNESIUMon 07-04-2025 Magnesium [Mass/Vol] 1.9 mg/dL Normal 1.8-2.6 [facility] Comment on above: Performed By: #### B EDG #### [facility] ([facility]) [address] [place] [address] VIR Magnesiumon 07-04-2025 Magnesium [Mass/Vol] 1.9 mg/dL 1.8 - 2.6 mg/dL [facility] No Panel Informationon 07-04 Interpretation and review of laboratory results Normal [facility] PHOSPHORUSon 07-04-2025 Phosphate [Mass/Vol] 3.2 mg/dL Normal 2.4-4.9 [facility] Comment on above: Performed By: #### B EDG #### [facility] ([facility]) [address] [place] [address]47 VIR Phosphoruson 07-04-2025 Phosphate [Mass/Vol] 3.2 mg/dL 2.4 - 4.9 mg/dL [facility] BEDSIDE GLUCOSEon 07-03-2025 Glucose [Mass/Vol] 185 mg/dL High 65-[address] [place] [address] Comment on above: Performed By: #### B EDG #### [facility] ([facility]) [address] [place] [address]343 VIR Glucose [Mass/Vol] 125 mg/dL High [address] [place] [address] Comment on above: Performed By: #### B EDG #### [facility] ([facility]) [address] [place] [address] VIR Glucose [Mass/Vol] 204 mg/dL High [address] Comment on above: Performed By: #### B EDG #### [facility] ([facility]) [address] [place] [address]885 VIR Glucose [Mass/Vol] 125 mg/dL High 65-99 [facility] Comment on above: Performed By: #### B EDG #### [facility] ([facility]) [address] [place], [place] [id number] VIR Bedside Glucose *Place/Obtai n serum glucose if >500 per glucometer.on 07-03-2025 Glucose [Mass/Vol] 185 mg/dL High 65 - 99 mg/dL [facility] Interpretation and review of laboratory results Abnormal [facility] Glucose [Mass/Vol] 125 mg/dL High 65 - 99 mg/dL [facility] Interpretation and review of laboratory results Abnormal [facility] Glucose [Mass/Vol] 204 mg/dL High 65 - 99 mg/dL [facility] Interpretation and review of laboratory results Abnormal [facility] Glucose [Mass/Vol] 125 mg/dL High 65 - 99 mg/dL [facility] Interpretation and review of laboratory results Abnormal [facility] CBC WITH AUTO DIFFERENTIALon 07-03-2025 BASOPHILS ABSOLUTE COUNT (10*3/UL) BY AUTOMATED COUNT 0.0 10*3/uL Normal 0.0-0.2 [facility] Comment on above: Performed By: #### C BCA #### [facility] ([facility]) [address] [place] [address] VIR BASOPHILS RELATIVE PERCENT BY AUTOMATED COUNT 0.4 % Normal [facility] Comment on above: Performed By: #### C BCA #### [facility] ([facility]) [address] [place] [address] VIR CELLAVISION DIFFERENTIAL TYPE AUTOMATED DIFFERENTIAL Normal [facility] Comment on above: Performed By: #### C BCA #### [facility] ([facility]) [address] [place] [address]016 VIR Eosinophils (Bld) [#/Vol] 0.1 10*3/uL Normal 0.0-0.4 [facility] Comment on above: Performed By: #### C BCA #### [facility] ([address] [address] VIR EOSINOPHILS RELATIVE PERCENT BY AUTOMATED COUNT 1.6 % Normal [facility] Comment on above: Performed By: #### C BCA #### [address] [address] VIR Erythrocyte distribution width (RBC) [Ratio] 17.3 % High 11.5-15 [facility] Comment on above: Performed By: #### C BCA #### [place] [id number] VIR Hematocrit (Bld) [Volume fraction] 27.6 % Low 35-47 [facility] Comment on above: Performed By: #### C BCA #### [address] [address] VIR Hemoglobin (Bld) [Mass/Vol] 9.2 g/dL Low 11.7-15.5 [facility] Comment on above: Performed By: #### C BCA #### [address] [address] VIR LYMPHOCYTES ABSOLUTE COUNT (10*3/UL) BY AUTOMATED COUNT 1.6 10*3/uL Normal 1.0-3.5 [facility] Comment on above: Performed By: #### C BCA #### [facility] ([facility]) [address] [place] [address] VIR LYMPHOCYTES RELATIVE PERCENT BY AUTOMATED COUNT 25.8 % Normal [facility] Comment on above: Performed By: #### C BCA #### [address] [address] VIR MCH (RBC) [Entitic mass] 26.9 pg Low 27-34 [facility] Comment on above: Performed By: #### C BCA #### [facility] ([facility]) [address] [place] [address] VIR MCHC (RBC) [Mass/Vol] 33.5 g/dL Normal 32-36 [facility] Comment on above: Performed By: #### C BCA #### [facility] ([facility]) [address] [place] [address] VIR MCV (RBC) [Entitic vol] 81 fL Normal 80-100 [facility] Comment on above: Performed By: #### C BCA #### [facility] ([facility]) [address] [place] [address] VIR MONOCYTES ABSOLUTE COUNT (10*3/UL) BY AUTOMATED COUNT 0.7 10*3/uL Normal 0.0-0.9 [facility] Comment on above: Performed By: #### C BCA #### [address] [address] VIR MONOCYTES RELATIVE PERCENT BY AUTOMATED COUNT 11.0 % Normal [facility] Comment on above: Performed By: #### C BCA #### [facility] ([facility]) [address] [place] [address] VIR NEUTROPHILS ABSOLUTE COUNT BY AUTOMATED COUNT 3.8 10*3/uL Normal 1.5-6.6 [facility] Comment on above: Performed By: #### C BCA #### [facility] ([facility]) [address] [place] [address] VIR NEUTROPHILS RELATIVE PERCENT BY AUTOMATED COUNT 61.2 % Normal [facility] Comment on above: Performed By: #### C BCA #### [facility] ([facility]) [address] [place] [address] VIR Platelet mean volume (Bld) [Entitic vol] 8.3 fL Normal 7-12 [facility] Comment on above: Performed By: #### C BCA #### [facility]) [address] [place] [address] VIR Platelets (Bld) [#/Vol] 314 10*3/uL Normal 150-450 [facility] Comment on above: Performed By: #### C BCA #### [facility] ([facility]) [address] [place] [address] VIR RBC COUNT 3.43 X10E12/L Low 3.8-5.2 [facility] Comment on above: Performed By: #### C BCA #### [facility] ([facility]) [address] [place] [address] VIR WBC (Bld) [#/Vol] 6.2 10*3/uL Normal 4-11 [facility] Comment on above: Performed By: #### C BCA #### [facility] ([facility]) [address] [place] [address] VIR CBC auto differentialon 06-15 Basophils (Bld) [#/Vol] 0 10*3/uL 0.0 - 0.2 10*3/uL [facility] Basophils/100 WBC (Bld) 0.4 % [facility] Differential cell count method Nom (Bld) AUTOMATED DIFFERENTIAL [facility] Eosinophils (Bld) [#/Vol] 0.1 10*3/uL 0.0 - 0.4 10*3/uL [facility] Eosinophils/100 WBC (Bld) 1.6 % [facility] Erythrocyte distribution width (RBC) [Ratio] 17.3 % High 11.5 - 15 % [facility] Hematocrit (Bld) [Volume fraction] 27.6 % Low 35 - 47 % [facility] Hemoglobin (Bld) [Mass/Vol] 9.2 g/dL Low 11.7 - 15.5 g/dL [facility] Interpretation and review of laboratory results Abnormal [facility] Lymphocytes (Bld) [#/Vol] 1.6 10*3/uL 1.0 - 3.5 10*3/uL [facility] Lymphocytes/100 WBC (Bld) 25.8 % [facility] MCH (RBC) [Entitic mass] 26.9 pg Low 27 - 34 pg [facility] MCHC (RBC) [Mass/Vol] 33.5 g/dL 32 - 36 g/dL [facility] MCV (RBC) [Entitic vol] 81 fL [...] System RBC (Bld) [#/Vol] 3.43 10*6/uL Low [facility] WBC LM Ql (Sput) 6.2 [facility] COMPREHENSIVE METABOLIC PANE Dickson 07-03-2025 Albumin [Mass/Vol] 3.2 g/dL Normal 3.2-5.3 [facility] Comment on above: Performed By: #### C MP #### [facility]) [address] [place] [address] VIR ALP [Catalytic activity/Vol] 115 U/L Normal 39-130 [facility] Comment on above: Performed By: #### C MP #### [facility]) [address] [place] [address] VIR ALT [Catalytic activity/Vol] 14 U/L Normal <=31 [facility] Comment on above: Performed By: #### C MP #### [facility]) [address] [place] [address] VIR Anion gap [Moles/Vol] 9 mmol/L Normal 5-15 [facility] Comment on above: Performed By: #### C MP #### [facility]) [address] [place] [address] VIR AST [Catalytic activity/Vol] 21 U/L Normal <=41 [facility] Comment on above: Performed By: #### C MP #### [facility]) [address] [place] [address] VIR Bilirubin [Mass/Vol] 0.9 mg/dL Normal 0.3-1.2 [facility] Comment on above: Performed By: #### C MP #### [address] [address] VIR Calcium [Mass/Vol] 9.0 mg/dL Normal 8.5-10.5 [facility] Comment on above: Performed By: #### C MP #### [address] [address] VIR Chloride [Moles/Vol] 98 mmol/L Normal 98-109 [facility] Comment on above: Performed By: #### C MP #### [address] [address] VIR CO2 [Moles/Vol] 25 mmol/L Normal 22-32 [facility] Comment on above: Performed By: #### C MP #### [address] [address] VIR Creatinine [Mass/Vol] 1.17 mg/dL High 0.40-1.00 [facility] Comment on above: Result Comment: METH OD TRACEABLE TO IDMS STANDARD Performed By: #### C MP #### [facility]) [address] [place] [address] VIR GFR/1.73 sq M.predicted among non-blacks MDRD (S/P/Bld) [Vol rate/Area] 47 mL/min/{1.73_m2} Low >=60 [facility] Comment on above: Result Comment: eGFR not reported due to non-numeric value for Creatinine. Reported eGFR is based on the CKD-EPI 1 equation that does not use a race coefficient. Performed By: #### C MP #### [facility]) [address] [place] [address] VIR Glucose [Mass/Vol] 103 mg/dL High 65-99 [facility] Comment on above: Performed By: #### C MP #### [facility] ([facility]) [address] [place] [address] VIR Potassium [Moles/Vol] 3.8 mmol/L Normal 3.5-5.0 [facility] Comment on above: Performed By: #### C MP #### [facility] ([facility]) [address] [place] [address] VIR Protein [Mass/Vol] 7.0 g/dL Normal 6.0-8.0 [facility] Comment on above: Performed By: #### C MP #### [facility] ([facility]) [address] [place] [address] VIR Sodium [Moles/Vol] 132 mmol/L Low 134-146 [facility] Comment on above: Performed By: #### C MP #### [facility] ([facility]) [address] [place] [address] VIR Urea nitrogen [Mass/Vol] 18 mg/dL Normal 5-27 [facility] Comment on above: Performed By: #### C MP #### [facility]) [address] [place] [address] VIR Comprehensive metabolic pane dickson 07-03-2025 Albumin [Mass/Vol] 3.2 g/dL 3.2 - 5.3 g/dL [facility] ALP [Catalytic activity/Vol] 115 U/L 39 - 130 U/L [facility] ALT No additional P-5'-P [Catalytic activity/Vol] 14 U/L NINF - 31 U/L [facility] Anion gap [Moles/Vol] 9 mmol/L 5 - 15 mmol/L [facility] AST [Catalytic activity/Vol] 21 U/L NINF - 41 U/L [facility] Bilirubin [Mass/Vol] 0.9 mg/dL 0.3 - 1.2 mg/dL [facility] Calcium [Mass/Vol] 9 mg/dL 8.5 - 10.5 mg/dL [facility] Chloride [Moles/Vol] 98 mmol/L 98 - 109 mmol/L [facility] CO2 [Moles/Vol] 25 mmol/L 22 - 32 mmol/L [facility] Creatinine [Mass/Vol] 1.17 mg/dL High 0.40 - 1.00 mg/dL [facility] Comment on above: METHOD TRACEABLE TO IDMS STANDARD EGFR Non-Race Dependent 47 Low - PINF [facility] Comment on above: eGFR not reported du e to non-numeric value for Creatinine. Reported eGFR is based on the CKD-EPI 2020 equation that does not use a race coefficient. Glucose [Mass/Vol] 103 mg/dL High 65 - 99 mg/dL [facility] Interpretation and review of laboratory results Abnormal [facility] Potassium [Moles/Vol] 3.8 mmol/L 3.5 - 5.0 mmol/L [facility] Protein [Mass/Vol] 7 g/dL 6.0 - 8.0 g/dL [facility] Sodium [Moles/Vol] 132 mmol/L Low 134 - 146 mmol/L [facility] Urea nitrogen [Mass/Vol] 18 mg/dL 5 - 27 mg/dL [facility] MAGNESIUMon 07-03-2025 Magnesium [Mass/Vol] 1.8 mg/dL Normal 1.8-2.6 [facility] Comment on above: Performed By: #### M G #### [facility] ([facility]) [address] [place] [address] VIR Magnesiumon 07-03-2025 Magnesium [Mass/Vol] 1.8 mg/dL 1.8 - 2.6 mg/dL [facility] No Panel Informationon 07-03 Interpretation and review of laboratory results Normal [facility] PHOSPHORUSon 07-03-2025 Phosphate [Mass/Vol] 3.1 mg/dL Normal 2.4-4.9 [facility] Comment on above: Performed By: #### P HOS #### [facility] ([facility]) [address] [place] [address] VIR Phosphoruson 07-03-2025 Phosphate [Mass/Vol] 3.1 mg/dL 2.4 - 4.9 mg/dL [facility] XR ABDOMEN AP 1 VWon 025 [...] Acevedo MD on 07/03/2025 2:51 PM Normal [facility] XR Abdomen APon 07-03-2025 Abdomen single view Clinical history:n/v abdominal pain Comparison: 10/17/2019 Findings: AP supine view of the abdomen. Ventricular shunt catheter tubing, tip in the right lower quadrant. Nonobstructive, nonspecific bowel gas pattern. Impression: Nonobstructive, nonspecific bowel gas pattern. Finalized by Sarai Acevedo MD on 07/03/2025 2:51 PM SECTRARONNA Sarai Acevedo MD - 07/03/2025 Abdomen single view Clinical history:n/v abdominal pain Comparison: 10/17/2019 Findings: AP supine view of the abdomen. Ventricular shunt catheter tubing, tip in the right lower quadrant. Nonobstructive, nonspecific bowel gas pattern. Impression: Nonobstructive, nonspecific bowel gas pattern. Finalized by Sarai Acevedo MD on 07/03/2025 2:51 PM [facility] Radiology Study observation (narrative) [facility] XR Abdomen APOrdered By: Clark Acevedo on 07-03-2025 [facility] Work Phone: BEDSIDE GLUCOSEon 07-02-2025 Glucose [Mass/Vol] 99 mg/dL Normal 65-99 [facility] Comment on above: Performed By: #### B EDG #### [facility] ([facility]) [address] [place] [address] VIR BLOOD CULTUREon 07-02-2025 Bacteria identified Cx Nom (Bld) CULTURE RESULTS NO GROWTH 5 DAYS Normal [facility] Comment on above: Order Comment: *SIRS Criteria: (must display 2 without other explanation)-Temperature < 36 or >38-Pulse >90-Resp rate >20-WBC less than 4K or greater than 12KRepeat blood cultures not needed:-To document that a blood culture is a contaminant when 1 of 2 bottles is positive for a common contaminant (already listed in [facility] with the culture result)-To document clearance of gram negative bacteremia in patients with suspected urinary source who are improving Performed By: #### B C ####[facility] ([facility])[address] [address] VIR Bacteria identified Cx Nom (Bld) CULTURE RESULTS NO GROWTH 5 DAYS Normal [facility] Comment on above: Order Comment: *SIRS Criteria: (must display 2 without other explanation)-Temperature < 36 or >38-Pulse >90-Resp rate >20-WBC less than 4K or greater than 12KRepeat blood cultures not needed:-To document that a blood culture is a contaminant when 1 of 2 bottles is positive for a common contaminant (already listed in [facility] with the culture result)-To document clearance of gram negative bacteremia in patients with suspected urinary source who are improving Performed By: #### B C ####[facility] ([facility])[address] [address] VIR Bedside Glucose *Place/Obtai n serum glucose if >500 per glucometer.on 07-02-2025 Glucose [Mass/Vol] 99 mg/dL 65 - 99 mg/dL [facility] Interpretation and review of laboratory results Normal [facility] CBC WITH AUTO DIFFERENTIALon 07-02-2025 BASOPHILS ABSOLUTE COUNT (10*3/UL) BY AUTOMATED COUNT 0.0 10*3/uL Normal 0.0-0.2 [facility] Comment on above: Performed By: #### C BCA ####[facility] ([facility])[address] [place] [address] VIR BASOPHILS RELATIVE PERCENT BY AUTOMATED COUNT 0.5 % Normal [facility] Comment on above: Performed By: #### C BCA ####[facility] ([address] [place] [address] VIR CELLAVISION DIFFERENTIAL TYPE AUTOMATED DIFFERENTIAL Normal [facility] Comment on above: Performed By: #### C BCA ####[facility] ([address] [place] [address] VIR Eosinophils (Bld) [#/Vol] 0.1 10*3/uL Normal 0.0-0.4 [facility] Comment on above: Performed By: #### C BCA ####[facility] ([address] [address] VIR EOSINOPHILS RELATIVE PERCENT BY AUTOMATED COUNT 1.3 % Normal [facility] Comment on above: Performed By: #### C BCA ####[address] [address] VIR Erythrocyte distribution width (RBC) [Ratio] 17.6 % High 11.5-15 [facility] Comment on above: Performed By: #### C BCA ####[address] [address] VIR Hematocrit (Bld) [Volume fraction] 31.1 % Low 35-47 [facility] Comment on above: Performed By: #### C BCA ####[address] [place] [address] VIR Hemoglobin (Bld) [Mass/Vol] 10.3 g/dL Low 11.7-15.5 [facility] Comment on above: Performed By: #### C BCA ####[address] [address] VIR LYMPHOCYTES ABSOLUTE COUNT (10*3/UL) BY AUTOMATED COUNT 1.4 10*3/uL Normal 1.0-3.5 [facility] Comment on above: Performed By: #### C BCA ####[facility] ([address] [place] [address] VIR LYMPHOCYTES RELATIVE PERCENT BY AUTOMATED COUNT 19.8 % Normal [facility] Comment on above: Performed By: #### C BCA ####[facility] ([address] [place] [address] VIR MCH (RBC) [Entitic mass] 26.3 pg Low 27-34 [facility] Comment on above: Performed By: #### C BCA ####[facility] ([address] [place] [address] VIR MCHC (RBC) [Mass/Vol] 32.9 g/dL Normal 32-36 [facility] Comment on above: Performed By: #### C BCA ####[facility] ([address] [place] [address] VIR MCV (RBC) [Entitic vol] 80 fL Normal 80-100 [facility] Comment on above: Performed By: #### C BCA ####[facility] ([address] [place] [address] VIR MONOCYTES ABSOLUTE COUNT (10*3/UL) BY AUTOMATED COUNT 0.7 10*3/uL Normal 0.0-0.9 [facility] Comment on above: Performed By: #### C BCA ####[facility] ([address] [place] [address] VIR MONOCYTES RELATIVE PERCENT BY AUTOMATED COUNT 9.1 % Normal [facility] Comment on above: Performed By: #### C BCA ####[facility] ([address] [place] [address] VIR NEUTROPHILS ABSOLUTE COUNT BY AUTOMATED COUNT 5.0 10*3/uL Normal 1.5-6.6 [facility] Comment on above: Performed By: #### C BCA ####[facility] ([address] [place] [address] VIR NEUTROPHILS RELATIVE PERCENT BY AUTOMATED COUNT 69.3 % Normal [facility] Comment on above: Performed By: #### C BCA ####[facility] ([facility])[address] [place] [address].[place] [address] VIR Platelet mean volume (Bld) [Entitic vol] 7.8 fL Normal 7-12 [facility] Comment on above: Performed By: #### C BCA ####[facility] ([address] [place] [address] VIR Platelets (Bld) [#/Vol] 401 10*3/uL Normal 150-450 [facility] Comment on above: Performed By: #### C BCA ####[facility] ([address] [place] [address] VIR RBC COUNT 3.89 X10E12/L Normal 3.8-5.2 [facility] Comment on above: Performed By: #### C BCA ####[facility] ([address] [address] VIR WBC (Bld) [#/Vol] 7.2 10*3/uL Normal 4-11 [facility] Comment on above: Performed By: #### C BCA ####[facility] ([address] [place] [address] VIR COMPREHENSIVE METABOLIC PANE Dickson 07-02-2025 Albumin [Mass/Vol] 3.6 g/dL Normal 3.2-5.3 [facility] Comment on above: Performed By: #### C MP ####[facility] ([address] [place] [address] VIR ALP [Catalytic activity/Vol] 135 U/L High 39-130 [facility] Comment on above: Performed By: #### C MP ####[facility] ([address] [place] [address] VIR ALT [Catalytic activity/Vol] 18 U/L Normal <=31 [facility] Comment on above: Performed By: #### C MP ####[facility] ([address] [place] [address] VIR Anion gap [Moles/Vol] 14 mmol/L Normal 5-15 [facility] Comment on above: Performed By: #### C MP ####[facility] ([address] [place] [address] VIR AST [Catalytic activity/Vol] 29 U/L Normal <=41 [facility] Comment on above: Performed By: #### C MP ####[facility] ([address] [place] [address] VIR Bilirubin [Mass/Vol] 0.8 mg/dL Normal 0.3-1.2 [facility] Comment on above: Performed By: #### C MP ####[facility] ([address] [place] [address] VIR Calcium [Mass/Vol] 9.7 mg/dL Normal 8.5-10.5 [facility] Comment on above: Performed By: #### C MP ####[facility] ([address] [place] [address] VIR Chloride [Moles/Vol] 96 mmol/L Low 98-109 [facility] Comment on above: Performed By: #### C MP ####[facility] ([address] [place] [address] VIR CO2 [Moles/Vol] 23 mmol/L Normal 22-32 [facility] Comment on above: Performed By: #### C MP ####[facility] ([address] [place] [address] VIR Creatinine [Mass/Vol] 1.17 mg/dL High 0.40-1.00 [facility] Comment on above: Result Comment: METH OD TRACEABLE TO IDMS STANDARD Performed By: #### C MP ####[facility] ([address] [address] VIR GFR/1.73 sq M.predicted among non-blacks MDRD (S/P/Bld) [Vol rate/Area] 47 mL/min/{1.73_m2} Low >=60 [facility] Comment on above: Result Comment: eGFR not reported due to non-numeric value for Creatinine.Reported eGFR is based on theCKD-EPI 2020 equation that doesnot use a race coefficient. Performed By: #### C MP ####[facility] ([address] [address] VIR Glucose [Mass/Vol] 131 mg/dL High 65-99 [facility] Comment on above: Performed By: #### C MP ####[facility] ([address] [address] VIR Potassium [Moles/Vol] 3.9 mmol/L Normal 3.5-5.0 [facility] Comment on above: Performed By: #### C MP ####[facility] ([address] [address] VIR Protein [Mass/Vol] 8.2 g/dL High 6.0-8.0 [facility] Comment on above: Performed By: #### C MP ####[facility] ([address] [address] VIR Sodium [Moles/Vol] 133 mmol/L Low 134-146 [facility] Comment on above: Performed By: #### C MP ####[facility] ([address] [address] VIR Urea nitrogen [Mass/Vol] 23 mg/dL Normal 5-27 [facility] Comment on above: Performed By: #### C MP ####[address] [place] [address] ABDOMEN AND PELVIS W CONT on 07-02-2025 CT ABDOMEN AND PELVIS W CONT Normal [facility] CT BRAIN WO CONTon 5 CT BRAIN WO CONT Normal [facility] ER EXTRA URINE CULTUREon ER EXTRA URINE CULTURE ERXUC ER EXTRA URINE CULTURE Cancelled Normal [facility] LACTATE W/ REFLEXon 07-02-20 25 LACTATE W/REFLEX 1.2 mmol/L Normal 0.4-2.0 [facility] Comment on above: Order Comment: Resul t did not trigger repeat Lactate,re-order if needed. Performed By: #### L ACTS ####[facility] ([address] [place] [address] VIR LIPASEon 07-02-2025 Lipase [Catalytic activity/Vol] 28 U/L Normal 17-40 [facility] Comment on above: Performed By: #### L IPA ####[facility] ([address] [place] [address] VIR MAGNESIUMon 07-02-2025 Magnesium [Mass/Vol] 1.4 mg/dL Low 1.8-2.6 [facility] Comment on above: Performed By: #### M G ####[facility] ([address] [place] [address] VIR PHOSPHORUSon 07-02-2025 Phosphate [Mass/Vol] 3.0 mg/dL Normal 2.4-4.9 [facility] Comment on above: Performed By: #### P HOS #### [facility] ([facility]) [address] [place] [address] VIR POCT NURSING URINE MACROSCOP IC UAon 07-02-2025 BILIRUBIN MARYJO Moderate Abnormal Negative [facility] Comment on above: Performed By: #### N UM ####[facility] ([address] [place] [address] VIR BLOOD/HGB MARYJO Negative Normal Negative [facility] Comment on above: Performed By: #### N UM ####[facility] ([address] [place] [address] VIR GLUCOSE MARYJO Negative Normal Negative [facility] Comment on above: Performed By: #### N UM ####[facility] ([address] [place] [address] VIR KETONES MARYJO 40 mg/dL Abnormal Negative [facility] Comment on above: Performed By: #### N UM ####[facility] ([address] [place] [address] VIR LEUKOCYTE ESTERASE MARYJO Negative Normal Negative [facility] Comment on above: Performed By: #### N UM ####[address] [place] [address] VIR NITRITE MARYJO Negative Normal Negative [facility] Comment on above: Performed By: #### N UM ####[facility] ([address] [place] [address] VIR PH MARYJO 5.5 Normal 5.0, 6.0, 6.5, 7.0, 7.5, 8.0, 8.5, 5.5 [facility] Comment on above: Performed By: #### N UM ####[facility] ([address] [place] [address] VIR PROTEIN MARYJO 30 mg/dL Abnormal Negative [facility] Comment on above: Performed By: #### N UM ####[address] [place] [address] VIR SPECIFIC GRAVITY MARYJO >=1.030 Abnormal 1.010, 1.015, 1.020, 1.025 [facility] Comment on above: Performed By: #### N UM ####[facility] ([address] [place] [address] VIR UROBILINOGEN MARYJO 0.2 E.U./dL Normal [facility] Comment on above: Performed By: #### N UM ####[facility] ([facility])[address] [place] [address] VIR Phosphoruson 07-02-2025 Interpretation and review of laboratory results Normal [facility] Phosphate [Mass/Vol] 3 mg/dL 2.4 - 4.9 mg/dL [facility] TROP I, HIGH SENSITIVITY 1 H OURon 07-02-2025 TROPONIN I, HIGH SENSITIVITY 14 ng/L Normal <16 [facility] Comment on above: Performed By: #### T NIHS1 ####[facility] ([address] [address] VIR TROPONIN I, HIGH SENSITIVITY 0 HOURon 07-02-2025 TROPONIN I, HIGH SENSITIVITY 16 ng/L High <16 [facility] Comment on above: Performed By: #### T NIHS0 ####[facility] ([facility])[address] [place] [address] VIR URINE CULTUREon 07-02-2025 Bacteria identified Cx Nom (U) CULTURE RESULTS NO GROWTH AT <1000 CFU/mL Normal [facility] Comment on above: Performed By: #### U C ####[facility] ([facility])[address] [facility] [address], [place] [address] VIR US PELVIC WITH DUPLEXon 06-15 US PELVIC WITH DUPLEX Normal [facility] XR CHEST 1 VWon 07-02-2025 XR CHEST 1 VW Normal [facility] Urine Cultureon 06-25-2025 Bacteria identified Cx Nom (U) ORGANISM: Citrobacter freundii complex (O:CITFRC) [place] Count >100,000 ORGANISM: Enterococcus faecalis (O:ENTFAC) [place] Count 50,000 Aerobic CLARK Charge (NMIC56) SUSCEPTIBILITY [...] RESISTANT TO ALL B-LACTAM DRUGS. PERFORMED BY: [place] [id number] PATHOLOGIST COORDINATOR OF EVALUATION MARA LOPEZ M.D. Normal [facility] Comment on above: Performed By: #### C UU #### [address] BEDSIDE GLUCOSEon 06-13-2025 Glucose [Mass/Vol] 336 mg/dL High 65-99 [facility] Comment on above: Performed By: #### B EDG ####[facility] ([facility])[address] [place] [address] VIR CBC WITH AUTO DIFFERENTIALon 06-13-2025 BASOPHILS ABSOLUTE COUNT (10*3/UL) BY AUTOMATED COUNT 0.1 10*3/uL Normal 0.0-0.2 [facility] Comment on above: Performed By: #### C BCA ####[facility] ([facility])[address] [place] [address] VIR BASOPHILS RELATIVE PERCENT BY AUTOMATED COUNT 1.4 % Normal [facility] Comment on above: Performed By: #### C BCA ####[facility] ([address] [address] VIR CELLAVISION DIFFERENTIAL TYPE AUTOMATED DIFFERENTIAL Normal [facility] Comment on above: Performed By: #### C BCA ####[facility] ([address] [address] VIR Eosinophils (Bld) [#/Vol] 0.3 10*3/uL Normal 0.0-0.4 [facility] Comment on above: Performed By: #### C BCA ####[facility] ([address] [address] VIR EOSINOPHILS RELATIVE PERCENT BY AUTOMATED COUNT 4.0 % Normal [facility] Comment on above: Performed By: #### C BCA ####[facility] ([address] [address] VIR Erythrocyte distribution width (RBC) [Ratio] 16.5 % High 11.5-15 [facility] Comment on above: Performed By: #### C BCA ####[facility] ([address] [address] VIR Hematocrit (Bld) [Volume fraction] 28.0 % Low 35-47 [facility] Comment on above: Performed By: #### C BCA ####[facility] ([address] [address] VIR Hemoglobin (Bld) [Mass/Vol] 9.2 g/dL Low 11.7-15.5 [facility] Comment on above: Performed By: #### C BCA ####[facility] ([address] [address] VIR LYMPHOCYTES ABSOLUTE COUNT (10*3/UL) BY AUTOMATED COUNT 2.2 10*3/uL Normal 1.0-3.5 [facility] Comment on above: Performed By: #### C BCA ####[facility] ([address] [address] VIR LYMPHOCYTES RELATIVE PERCENT BY AUTOMATED COUNT 31.9 % Normal [facility] Comment on above: Performed By: #### C BCA ####[facility] ([address] [address] VIR MCH (RBC) [Entitic mass] 26.7 pg Low 27-34 [facility] Comment on above: Performed By: #### C BCA ####[facility] ([address] [address] VIR MCHC (RBC) [Mass/Vol] 33.0 g/dL Normal 32-36 [facility] Comment on above: Performed By: #### C BCA ####[facility] ([address] [address] VIR MCV (RBC) [Entitic vol] 81 fL Normal 80-100 [facility] Comment on above: Performed By: #### C BCA ####[facility] ([address] [address] VIR MONOCYTES ABSOLUTE COUNT (10*3/UL) BY AUTOMATED COUNT 0.8 10*3/uL Normal 0.0-0.9 [facility] Comment on above: Performed By: #### C BCA ####[facility] ([address] [address] VIR MONOCYTES RELATIVE PERCENT BY AUTOMATED COUNT 12.4 % Normal [facility] Comment on above: Performed By: #### C BCA ####[facility] ([address] [place] [address] VIR NEUTROPHILS ABSOLUTE COUNT BY AUTOMATED COUNT 3.4 10*3/uL Normal 1.5-6.6 [facility] Comment on above: Performed By: #### C BCA ####[facility] ([address] [place] [address] VIR NEUTROPHILS RELATIVE PERCENT BY AUTOMATED COUNT 50.3 % Normal [facility] Comment on above: Performed By: #### C BCA ####[facility] ([address] [address] VIR Platelet mean volume (Bld) [Entitic vol] 8.2 fL Normal 7-12 [facility] Comment on above: Performed By: #### C BCA ####[facility] ([address] [address] VIR Platelets (Bld) [#/Vol] 226 10*3/uL Normal 150-450 [facility] Comment on above: Performed By: #### C BCA ####[facility] ([address] [address] VIR RBC COUNT 3.45 X10E12/L Low 3.8-5.2 [facility] Comment on above: Performed By: #### C BCA ####[facility] ([address] [address] VIR WBC (Bld) [#/Vol] 6.8 10*3/uL Normal 4-11 [facility] Comment on above: Performed By: #### C BCA ####[facility] ([address] [address] VIR COMPREHENSIVE METABOLIC PANE Dickson 06-13-2025 Albumin [Mass/Vol] 2.9 g/dL Low 3.2-5.3 [facility] Comment on above: Performed By: #### C MP ####[facility] ([address] [place] [address] VIR ALP [Catalytic activity/Vol] 104 U/L Normal 39-130 [facility] Comment on above: Performed By: #### C MP ####[facility] ([address] [place] [address] VIR ALT [Catalytic activity/Vol] 8 U/L Normal <=31 [facility] Comment on above: Performed By: #### C MP ####[facility] ([address] [place] [address] VIR Anion gap [Moles/Vol] 8 mmol/L Normal 5-15 [facility] Comment on above: Performed By: #### C MP ####[facility] ([address] [place] [address] VIR AST [Catalytic activity/Vol] 14 U/L Normal <=41 [facility] Comment on above: Performed By: #### C MP ####[facility] ([address] [place] [address] VIR Bilirubin [Mass/Vol] 0.3 mg/dL Normal 0.3-1.2 [facility] Comment on above: Performed By: #### C MP ####[facility] ([address] [place] [address] VIR Calcium [Mass/Vol] 8.8 mg/dL Normal 8.5-10.5 [facility] Comment on above: Performed By: #### C MP ####[facility] ([address] [place] [address] VIR Chloride [Moles/Vol] 106 mmol/L Normal 98-109 [facility] Comment on above: Performed By: #### C MP ####[facility] ([address] [place] [address] VIR CO2 [Moles/Vol] 26 mmol/L Normal 22-32 [facility] Comment on above: Performed By: #### C MP ####[facility] ([address] [place] [address] VIR Creatinine [Mass/Vol] 1.28 mg/dL High 0.40-1.00 [facility] Comment on above: Result Comment: METH OD TRACEABLE TO IDMS STANDARD Performed By: #### C MP ####[facility] ([address] [address] VIR GFR/1.73 sq M.predicted among non-blacks MDRD (S/P/Bld) [Vol rate/Area] 43 mL/min/{1.73_m2} Low >=60 [facility] Comment on above: Result Comment: eGFR not reported due to non-numeric value for Creatinine.Reported eGFR is based on theCKD-EPI 2021 equation that doesnot use a race coefficient. Performed By: #### C MP ####[facility] ([address] [place] [address] VIR Glucose [Mass/Vol] 160 mg/dL High 65-99 [facility] Comment on above: Performed By: #### C MP ####[facility] ([address] [place] [address] VIR Potassium [Moles/Vol] 3.8 mmol/L Normal 3.5-5.0 [facility] Comment on above: Performed By: #### C MP ####[facility] ([address] [place] [address] VIR Protein [Mass/Vol] 6.3 g/dL Normal 6.0-8.0 [facility] Comment on above: Performed By: #### C MP ####[facility] ([address] [place] [address] VIR Sodium [Moles/Vol] 140 mmol/L Normal 134-146 [facility] Comment on above: Performed By: #### C MP ####[facility] ([address] [place] [address] VIR Urea nitrogen [Mass/Vol] 18 mg/dL Normal 5-27 [facility] Comment on above: Performed By: #### C MP ####[facility] ([address] [place] [address] VIR MAGNESIUMon 06-13-2025 Magnesium [Mass/Vol] 2.0 mg/dL Normal 1.8-2.6 [facility] Comment on above: Performed By: #### M G ####[facility] ([address] [place] [address] VIR URINALYSISon 06-13-2025 Bilirubin Ql (U) Negative Normal Negative [facility] Comment on above: Performed By: #### U A ####[facility] ([address] [place] [address] VIR BLOOD/HGB Negative Normal Negative [facility] Comment on above: Performed By: #### U A ####[facility] ([address] [place] [address] VIR Color (U) Yellow Normal Yellow [facility] Comment on above: Performed By: #### U A ####[facility] ([address] [place] [address] VIR Glucose Ql (U) Negative Normal Negative, 250 mg/dL [facility] Comment on above: Performed By: #### U A ####[facility] ([address] [place] [address] VIR Ketones Ql (U) Negative Normal Negative [facility] Comment on above: Performed By: #### U A ####[facility] ([facility])[address] [place], [place] [address] [address] VIR Leukocyte esterase Test strip Ql (U) Negative Normal Negative [facility] Comment on above: Performed By: #### U A ####[facility] ([facility])[address] [place] [address] [place] [address] VIR MUCOUS Present Abnormal None [facility] Comment on above: Performed By: #### U A ####[facility] ([facility])[address] [place] [address].[place] [address] VIR Nitrite Ql (U) Negative Normal Negative [facility] Comment on above: Performed By: #### U A ####[facility] ([address] [place] [address] VIR PH,URINE 6.0 Normal 5.0-8.5 [facility] Comment on above: Performed By: #### U A ####[facility] ([address] [place] [address] VIR Protein Ql (U) Trace Abnormal Negative [facility] Comment on above: Performed By: #### U A ####[facility] ([address] [place] [address] VIR Specific gravity (U) [Rel density] 1.025 Normal 1.003-1.03 5 [facility] Comment on above: Performed By: #### U A ####[facility] ([address] [place] [address] VIR TURBIDITY Clear Normal Clear [facility] Comment on above: Performed By: #### U A ####[facility] ([facility])[address] [place] [address] [place] [address] VIR UROBILINOGEN 0.2 eu/dL Normal 0.2 eu/dL, 1.0 eu/dL [facility] Comment on above: Performed By: #### U A ####[facility] ([facility])[address] [place] [address] [place] [address] VIR URINE CULTUREon 06-13-2025 Bacteria identified Cx Nom (U) CULTURE RESULTS <10,000 ORGANISMS/mL NORMAL URO GENITAL BAILEY Normal [facility] Comment on above: Performed By: #### U C ####[facility] ([facility])[address], [place] [address] VIR BEDSIDE GLUCOSEon 06-12-2025 Glucose [Mass/Vol] 229 mg/dL High 65-99 [facility] Comment on above: Performed By: #### B EDG ####[facility] ([address] [address] VIR Glucose [Mass/Vol] 229 mg/dL High [address] [place] [address] Comment on above: Performed By: #### B EDG ####[facility] ([address] [place] [address] VIR Glucose [Mass/Vol] 262 mg/dL High [address] [place] [address] Comment on above: Performed By: #### B EDG ####[facility] ([address] [place] [address] VIR Glucose [Mass/Vol] 184 mg/dL High [address] [place] [address] Comment on above: Performed By: #### B EDG ####[facility] ([address] [place] [address] VIR CBC WITH AUTO DIFFERENTIALon 06-12-2025 BASOPHILS ABSOLUTE COUNT (10*3/UL) BY AUTOMATED COUNT 0.1 10*3/uL Normal 0.0-0.2 [facility] Comment on above: Performed By: #### C BCA ####[facility] ([address] [place] [address] VIR BASOPHILS RELATIVE PERCENT BY AUTOMATED COUNT 1.3 % Normal [facility] Comment on above: Performed By: #### C BCA ####[facility] ([address] [address] VIR CELLAVISION DIFFERENTIAL TYPE AUTOMATED DIFFERENTIAL Normal [facility] Comment on above: Performed By: #### C BCA ####[facility] ([address] [address] VIR Eosinophils (Bld) [#/Vol] 0.3 10*3/uL Normal 0.0-0.4 [facility] Comment on above: Performed By: #### C BCA ####[address] [address] VIR EOSINOPHILS RELATIVE PERCENT BY AUTOMATED COUNT 3.4 % Normal [facility] Comment on above: Performed By: #### C BCA ####[facility] ([address] [address] VIR Erythrocyte distribution width (RBC) [Ratio] 16.1 % High 11.5-15 [facility] Comment on above: Performed By: #### C BCA ####[facility] ([address] [address] VIR Hematocrit (Bld) [Volume fraction] 32.8 % Low 35-47 [facility] Comment on above: Performed By: #### C BCA ####[facility] ([address] [address] VIR Hemoglobin (Bld) [Mass/Vol] 10.9 g/dL Low 11.7-15.5 [facility] Comment on above: Performed By: #### C BCA ####[address] [address] VIR LYMPHOCYTES ABSOLUTE COUNT (10*3/UL) BY AUTOMATED COUNT 2.2 10*3/uL Normal 1.0-3.5 [facility] Comment on above: Performed By: #### C BCA ####[facility] ([address] [address] VIR LYMPHOCYTES RELATIVE PERCENT BY AUTOMATED COUNT 29.1 % Normal [facility] Comment on above: Performed By: #### C BCA ####[facility] ([address] [place] [address] VIR MCH (RBC) [Entitic mass] 26.5 pg Low 27-34 [facility] Comment on above: Performed By: #### C BCA ####[facility] ([address] [address] VIR MCHC (RBC) [Mass/Vol] 33.2 g/dL Normal 32-36 [facility] Comment on above: Performed By: #### C BCA ####[facility] ([address] [address] VIR MCV (RBC) [Entitic vol] 80 fL Normal 80-100 [facility] Comment on above: Performed By: #### C BCA ####[facility] ([address] [address] VIR MONOCYTES ABSOLUTE COUNT (10*3/UL) BY AUTOMATED COUNT 1.0 10*3/uL High 0.0-0.9 [facility] Comment on above: Performed By: #### C BCA ####[facility] ([address] [address] VIR MONOCYTES RELATIVE PERCENT BY AUTOMATED COUNT 13.9 % Normal [facility] Comment on above: Performed By: #### C BCA ####[facility] ([address] [address] VIR NEUTROPHILS ABSOLUTE COUNT BY AUTOMATED COUNT 3.9 10*3/uL Normal 1.5-6.6 [facility] Comment on above: Performed By: #### C BCA ####[facility])[address] [place] [address] VIR NEUTROPHILS RELATIVE PERCENT BY AUTOMATED COUNT 52.3 % Normal [facility] Comment on above: Performed By: #### C BCA ####[facility] ([address] [place] [address] VIR Platelet mean volume (Bld) [Entitic vol] 9.1 fL Normal 7-12 [facility] Comment on above: Performed By: #### C BCA ####[facility] ([address] [place] [address] VIR Platelets (Bld) [#/Vol] 233 10*3/uL Normal 150-450 [facility] Comment on above: Performed By: #### C BCA ####[facility] ([address] [place] [address] VIR RBC COUNT 4.11 X10E12/L Normal 3.8-5.2 [facility] Comment on above: Performed By: #### C BCA ####[facility] ([address] [place] [address] VIR WBC (Bld) [#/Vol] 7.4 10*3/uL Normal 4-11 [facility] Comment on above: Performed By: #### C BCA ####[facility] ([address] [place] [address] VIR COMPREHENSIVE METABOLIC PANE [facility] 06-12-2025 Albumin [Mass/Vol] 3.2 g/dL Normal 3.2-5.3 [facility] Comment on above: Performed By: #### C MP ####[facility] ([address] [place] [address] VIR ALP [Catalytic activity/Vol] 115 U/L Normal 39-130 [facility] Comment on above: Performed By: #### C MP ####[facility] ([facility])[address] [place] [address] VIR ALT [Catalytic activity/Vol] 12 U/L Normal <=31 [facility] Comment on above: Performed By: #### C MP ####[facility] ([facility] [place] [address] VIR Anion gap [Moles/Vol] 11 mmol/L Normal 5-15 [facility] Comment on above: Performed By: #### C MP ####[facility] ([place] [address] [place] [address] VIR AST [Catalytic activity/Vol] 21 U/L Normal <=41 [facility] Comment on above: Performed By: #### C MP ####[facility] ([place] [address] [place] [address] VIR Bilirubin [Mass/Vol] 0.6 mg/dL Normal 0.3-1.2 [facility] Comment on above: Performed By: #### C MP ####[facility] ([place] [address] [place] [address] VIR Calcium [Mass/Vol] 8.9 mg/dL Normal 8.5-10.5 [facility] Comment on above: Performed By: #### C MP ####[facility] ([place] [address] [place] [address] VIR Chloride [Moles/Vol] 101 mmol/L Normal 98-109 [facility] Comment on above: Performed By: #### C MP ####[facility] ([place] [address] [place] [address] VIR CO2 [Moles/Vol] 25 mmol/L Normal 22-32 [facility] Comment on above: Performed By: #### C MP ####[facility] ([place] [address] [place] [address] VIR Creatinine [Mass/Vol] 1.21 mg/dL High 0.40-1.00 [facility] Comment on above: Result Comment: METH OD TRACEABLE TO IDMS STANDARD Performed By: #### C MP ####[facility] ([address] [place] [address] VIR GFR/1.73 sq M.predicted among non-blacks MDRD (S/P/Bld) [Vol rate/Area] 46 mL/min/{1.73_m2} Low >=60 [facility] Comment on above: Result Comment: eGFR not reported due to non-numeric value for Creatinine.Reported eGFR is based on theCKD-EPI 2020 equation that doesnot use a race coefficient. Performed By: #### C MP ####[facility] ([address] [place] [address] VIR Glucose [Mass/Vol] 157 mg/dL High 65-99 [facility] Comment on above: Performed By: #### C MP ####[facility] ([address] [place] [address] VIR Potassium [Moles/Vol] 4.1 mmol/L Normal 3.5-5.0 [facility] Comment on above: Performed By: #### C MP ####[address] [place] [address] VIR Protein [Mass/Vol] 7.2 g/dL Normal 6.0-8.0 [facility] Comment on above: Performed By: #### C MP ####[facility] ([address] [place] [address] VIR Sodium [Moles/Vol] 137 mmol/L Normal 134-146 [facility] Comment on above: Performed By: #### C MP ####[facility] ([address] [place] [address] VIR Urea nitrogen [Mass/Vol] 18 mg/dL Normal 5-27 [facility] Comment on above: Performed By: #### C MP ####[facility] ([address] [place] [address] VIR MAGNESIUMon 06-12-2025 Magnesium [Mass/Vol] 2.4 mg/dL Normal 1.8-2.6 [facility] Comment on above: Performed By: #### M G ####[facility] ([address] [place] [address] VIR APTTon 06-11-2025 aPTT Coag (Bld) [Time] 27 s Normal 26-37 [facility] Comment on above: Performed By: #### P TT ####[facility] ([address] [place] [address] VIR B-TYPE NATRIURETIC PEPTIDEon 06-11-2025 Natriuretic peptide B (Bld) [Mass/Vol] 161 pg/mL High <=100 [facility] Comment on above: Performed By: #### B TOUCH UP CARVER ####[facility] ([address] [place] [address] VIR BEDSIDE GLUCOSEon 06-11-2025 Glucose [Mass/Vol] 177 mg/dL High [address] [place] [address] Comment on above: Performed By: #### B EDG ####[facility] ([address] [place] [address] VIR Glucose [Mass/Vol] 197 mg/dL High [address] Comment on above: Performed By: #### B EDG ####[facility] ([address] [place] [address] VIR Glucose [Mass/Vol] 151 mg/dL High [address] [place] [address] Comment on above: Performed By: #### B EDG ####[facility] ([address] [place] [address] VIR Glucose [Mass/Vol] 185 mg/dL High 65-99 [facility] Comment on above: Performed By: #### B EDG ####[facility] ([address] [address] VIR CBC WITH AUTO DIFFERENTIALon 06-11-2025 BASOPHILS ABSOLUTE COUNT (10*3/UL) BY AUTOMATED COUNT 0.0 10*3/uL Normal 0.0-0.2 [facility] Comment on above: Performed By: #### C BCA ####[facility] ([address] [address] VIR BASOPHILS RELATIVE PERCENT BY AUTOMATED COUNT 0.4 % Normal [facility] Comment on above: Performed By: #### C BCA ####[facility] ([address] [address] VIR CELLAVISION DIFFERENTIAL TYPE AUTOMATED DIFFERENTIAL Normal [facility] Comment on above: Performed By: #### C BCA ####[facility] ([address] [address] VIR Eosinophils (Bld) [#/Vol] 0.1 10*3/uL Normal 0.0-0.4 [facility] Comment on above: Performed By: #### C BCA ####[facility] ([address] [address] VIR EOSINOPHILS RELATIVE PERCENT BY AUTOMATED COUNT 0.6 % Normal [facility] Comment on above: Performed By: #### C BCA ####[facility] ([address] [address] VIR Erythrocyte distribution width (RBC) [Ratio] 16.2 % High 11.5-15 [facility] Comment on above: Performed By: #### C BCA ####[facility] ([address] [place] [address] VIR Hematocrit (Bld) [Volume fraction] 31.6 % Low 35-47 [facility] Comment on above: Performed By: #### C BCA ####[facility] ([address] [address] VIR Hemoglobin (Bld) [Mass/Vol] 10.4 g/dL Low 11.7-15.5 [facility] Comment on above: Performed By: #### C BCA ####[facility] ([address] [address] VIR LYMPHOCYTES ABSOLUTE COUNT (10*3/UL) BY AUTOMATED COUNT 1.4 10*3/uL Normal 1.0-3.5 [facility] Comment on above: Performed By: #### C BCA ####[facility] ([address] [address] VIR LYMPHOCYTES RELATIVE PERCENT BY AUTOMATED COUNT 13.4 % Normal [facility] Comment on above: Performed By: #### C BCA ####[facility] ([address] [address] VIR MCH (RBC) [Entitic mass] 26.3 pg Low 27-34 [facility] Comment on above: Performed By: #### C BCA ####[facility] ([address] [address] VIR MCHC (RBC) [Mass/Vol] 32.8 g/dL Normal 32-36 [facility] Comment on above: Performed By: #### C BCA ####[facility] ([address] [address] VIR MCV (RBC) [Entitic vol] 80 fL Normal 80-100 [facility] Comment on above: Performed By: #### C BCA ####[facility] ([address] [address] VIR MONOCYTES ABSOLUTE COUNT (10*3/UL) BY AUTOMATED COUNT 0.9 10*3/uL Normal 0.0-0.9 [facility] Comment on above: Performed By: #### C BCA ####[facility] ([address] [address] VIR MONOCYTES RELATIVE PERCENT BY AUTOMATED COUNT 8.8 % Normal [facility] Comment on above: Performed By: #### C BCA ####[facility] ([address] [address] VIR NEUTROPHILS ABSOLUTE COUNT BY AUTOMATED COUNT 8.3 10*3/uL High 1.5-6.6 [facility] Comment on above: Performed By: #### C BCA ####[facility] ([address] [address] VIR NEUTROPHILS RELATIVE PERCENT BY AUTOMATED COUNT 76.8 % Normal [facility] Comment on above: Performed By: #### C BCA ####[facility] ([address] [address] VIR Platelet mean volume (Bld) [Entitic vol] 8.2 fL Normal 7-12 [facility] Comment on above: Performed By: #### C BCA ####[facility] ([address] [address] VIR Platelets (Bld) [#/Vol] 318 10*3/uL Normal 150-450 [facility] Comment on above: Performed By: #### C BCA ####[facility] ([address] [address] VIR RBC COUNT 3.94 X10E12/L Normal 3.8-5.2 [facility] Comment on above: Performed By: #### C BCA ####[facility] ([address] [address] VIR WBC (Bld) [#/Vol] 10.8 10*3/uL Normal 4-11 [facility] Comment on above: Performed By: #### C BCA ####[facility] ([address] [place] [address] VIR CK TOTALon 06-11-2025 CPK 81 U/L Normal 24-170 [facility] Comment on above: Performed By: #### C PK ####[facility] ([address] [place] [address] VIR COMPREHENSIVE METABOLIC PANE Dickson 06-11-2025 Albumin [Mass/Vol] 3.8 g/dL Normal 3.2-5.3 [facility] Comment on above: Performed By: #### C MP ####[facility] ([address] [place] [address] VIR ALP [Catalytic activity/Vol] 128 U/L Normal 39-130 [facility] Comment on above: Performed By: #### C MP ####[facility] ([address] [place] [address] VIR ALT [Catalytic activity/Vol] 14 U/L Normal <=31 [facility] Comment on above: Performed By: #### C MP ####[facility] ([address] [place] [address] VIR Anion gap [Moles/Vol] 15 mmol/L Normal 5-15 [facility] Comment on above: Performed By: #### C MP ####[facility] ([address] [place] [address] VIR AST [Catalytic activity/Vol] 25 U/L Normal <=41 [facility] Comment on above: Performed By: #### C MP ####[address] [place] [address] VIR Bilirubin [Mass/Vol] 1.1 mg/dL Normal 0.3-1.2 [facility] Comment on above: Performed By: #### C MP ####[facility] ([address] [place] [address] VIR Calcium [Mass/Vol] 9.1 mg/dL Normal 8.5-10.5 [facility] Comment on above: Performed By: #### C MP ####[facility] ([address] [place] [address] VIR Chloride [Moles/Vol] 98 mmol/L Normal 98-109 [facility] Comment on above: Performed By: #### C MP ####[facility] ([address] [place] [address] VIR CO2 [Moles/Vol] 20 mmol/L Low 22-32 [facility] Comment on above: Performed By: #### C MP ####[facility] ([address] [place] [address] VIR Creatinine [Mass/Vol] 1.32 mg/dL High 0.40-1.00 [facility] Comment on above: Result Comment: METH OD TRACEABLE TO IDMS STANDARD Performed By: #### C MP ####[facility] ([address] [place] [address] VIR GFR/1.73 sq M.predicted among non-blacks MDRD (S/P/Bld) [Vol rate/Area] 41 mL/min/{1.73_m2} Low >=60 [facility] Comment on above: Result Comment: eGFR not reported due to non-numeric value for Creatinine.Reported eGFR is based on theCKD-EPI 1 equation that doesnot use a race coefficient. Performed By: #### C MP ####[facility] ([address] [place] [address] VIR Glucose [Mass/Vol] 209 mg/dL High 65-99 [facility] Comment on above: Performed By: #### C MP ####[facility] ([address] [place] [address] VIR Potassium [Moles/Vol] 3.8 mmol/L Normal 3.5-5.0 [facility] Comment on above: Performed By: #### C MP ####[facility] ([address] [place] [address] VIR Protein [Mass/Vol] 8.1 g/dL High 6.0-8.0 [facility] Comment on above: Performed By: #### C MP ####[facility] ([address] [place] [address] VIR Sodium [Moles/Vol] 133 mmol/L Low 134-146 [facility] Comment on above: Performed By: #### C MP ####[facility] ([address] [place] [address] VIR Urea nitrogen [Mass/Vol] 19 mg/dL Normal 5-27 [facility] Comment on above: Performed By: #### C MP ####[facility] ([address] [place] [address] ABDOMEN AND PELVIS WO CON Ton 06-11-2025 CT ABDOMEN AND PELVIS WO CONT Normal [facility] HEMOGLOBINon 06-11-2025 Hemoglobin (Bld) [Mass/Vol] 10.3 g/dL Low 11.7-15.5 [facility] Comment on above: Performed By: #### H GB ####[facility] ([address] [place] [address] VIR MAGNESIUMon 06-11-2025 Magnesium [Mass/Vol] 1.7 mg/dL Low 1.8-2.6 [facility] Comment on above: Performed By: #### M G ####[facility] ([address] [place] [address] VIR Magnesium [Mass/Vol] 1.6 mg/dL Low 1.8-2.6 [facility] Comment on above: Performed By: #### M G ####[facility] ([address] [place] [address] VIR PLATELET COUNTon 06-11-2025 Platelet mean volume (Bld) [Entitic vol] 8.7 fL Normal 7-12 [facility] Comment on above: Performed By: #### P LTCT ####[facility] ([address] [place] [address] VIR Platelets (Bld) [#/Vol] 287 10*3/uL Normal 150-450 [facility] Comment on above: Performed By: #### P LTCT ####[facility] ([address] [place] [address] VIR THYROID PROFILE INCLUDES TSH FT4on 06-11-2025 Free T4 [Mass/Vol] 1.59 ng/dL Normal 0.61-1.60 [facility] Comment on above: Performed By: #### T HYR ####[facility] ([address] [place] [address] VIR TSH 2.32 uIU/mL Normal 0.49-4.67 [facility] Comment on above: Performed By: #### T HYR ####[facility] ([address] [place] [address] VIR TROP I, HIGH SENSITIVITY 1 H OURon 06-11-2025 TROPONIN I, HIGH SENSITIVITY 13 ng/L Normal <16 [facility] Comment on above: Performed By: #### T NIHS1 ####[facility] ([address] [place] [address] VIR TROPONIN I, HIGH SENSITIVITY 0 HOURon 06-11-2025 TROPONIN I, HIGH SENSITIVITY 12 ng/L Normal <16 [facility] Comment on above: Performed By: #### T NIHS0 ####[facility] ([address] [place] [address] VIR XR CHEST 1 VWon 06-11-2025 XR CHEST 1 VW Normal [facility] CBC WITH AUTO DIFFERENTIALon 06-10-2025 BASOPHILS ABSOLUTE COUNT (10*3/UL) BY AUTOMATED COUNT 0.1 10*3/uL Normal 0.0-0.2 [facility] Comment on above: Performed By: #### C BCA ####[facility] ([address] [address] VIR BASOPHILS RELATIVE PERCENT BY AUTOMATED COUNT 0.5 % Normal [facility] Comment on above: Performed By: #### C BCA ####[address] [address] VIR CELLAVISION DIFFERENTIAL TYPE AUTOMATED DIFFERENTIAL Normal [facility] Comment on above: Performed By: #### C BCA ####[address] [address] VIR Eosinophils (Bld) [#/Vol] 0.1 10*3/uL Normal 0.0-0.4 [facility] Comment on above: Performed By: #### C BCA ####[address] [address] VIR EOSINOPHILS RELATIVE PERCENT BY AUTOMATED COUNT 0.8 % Normal [facility] Comment on above: Performed By: #### C BCA ####[address] [address] VIR Erythrocyte distribution width (RBC) [Ratio] 15.9 % High 11.5-15 [facility] Comment on above: Performed By: #### C BCA ####[address] [address] VIR Hematocrit (Bld) [Volume fraction] 32.3 % Low 35-47 [facility] Comment on above: Performed By: #### C BCA ####[facility] ([address] [address] VIR Hemoglobin (Bld) [Mass/Vol] 10.7 g/dL Low 11.7-15.5 [facility] Comment on above: Performed By: #### C BCA ####[address] [address] VIR LYMPHOCYTES ABSOLUTE COUNT (10*3/UL) BY AUTOMATED COUNT 1.3 10*3/uL Normal 1.0-3.5 [facility] Comment on above: Performed By: #### C BCA ####[address] [address] VIR LYMPHOCYTES RELATIVE PERCENT BY AUTOMATED COUNT 12.4 % Normal [facility] Comment on above: Performed By: #### C BCA ####[address] [address] VIR MCH (RBC) [Entitic mass] 26.7 pg Low 27-34 [facility] Comment on above: Performed By: #### C BCA ####[address] [address] VIR MCHC (RBC) [Mass/Vol] 33.3 g/dL Normal 32-36 [facility] Comment on above: Performed By: #### C BCA ####[address] [address] VIR MCV (RBC) [Entitic vol] 80 fL Normal 80-100 [facility] Comment on above: Performed By: #### C BCA ####[address] [address] VIR MONOCYTES ABSOLUTE COUNT (10*3/UL) BY AUTOMATED COUNT 0.8 10*3/uL Normal 0.0-0.9 [facility] Comment on above: Performed By: #### C BCA ####[facility] ([address] [place] [address] VIR MONOCYTES RELATIVE PERCENT BY AUTOMATED COUNT 8.1 % Normal [facility] Comment on above: Performed By: #### C BCA ####[facility] ([facility])[address] [place], [place] [address] [address] VIR NEUTROPHILS ABSOLUTE COUNT BY AUTOMATED COUNT 8.1 10*3/uL High 1.5-6.6 [facility] Comment on above: Performed By: #### C BCA ####[facility] ([address] [place] [address] VIR NEUTROPHILS RELATIVE PERCENT BY AUTOMATED COUNT 78.2 % Normal [facility] Comment on above: Performed By: #### C BCA ####[facility] ([address] [place] [address] VIR Platelet mean volume (Bld) [Entitic vol] 7.7 fL Normal 7-12 [facility] Comment on above: Performed By: #### C BCA ####[facility] ([address] [place] [address] VIR Platelets (Bld) [#/Vol] 305 10*3/uL Normal 150-450 [facility] Comment on above: Performed By: #### C BCA ####[facility] ([address] [place] [address] VIR RBC COUNT 4.02 X10E12/L Normal 3.8-5.2 [facility] Comment on above: Performed By: #### C BCA ####[facility] ([address] [place] [address] VIR WBC (Bld) [#/Vol] 10.3 10*3/uL Normal 4-11 [facility] Comment on above: Performed By: #### C BCA ####[facility] ([address] [place] [address] VIR COMPREHENSIVE METABOLIC PANE Dickson 06-10-2025 Albumin [Mass/Vol] 3.7 g/dL Normal 3.2-5.3 [facility] Comment on above: Performed By: #### C MP ####[facility] ([facility])[address] [place] [address] VIR ALP [Catalytic activity/Vol] 130 U/L Normal 39-130 [facility] Comment on above: Performed By: #### C MP ####[facility] ([place] [address] [place] [address] VIR ALT [Catalytic activity/Vol] 15 U/L Normal <=31 [facility] Comment on above: Performed By: #### C MP ####[facility] ([place] [address] [place] [address] VIR Anion gap [Moles/Vol] 15 mmol/L Normal 5-15 [facility] Comment on above: Performed By: #### C MP ####[facility] ([place] [address] [place] [address] VIR AST [Catalytic activity/Vol] 21 U/L Normal <=41 [facility] Comment on above: Performed By: #### C MP ####[facility] ([place] [address] [place] [address] VIR Bilirubin [Mass/Vol] 1.2 mg/dL Normal 0.3-1.2 [facility] Comment on above: Performed By: #### C MP ####[facility] ([place] [address] [place] [address] VIR Calcium [Mass/Vol] 9.6 mg/dL Normal 8.5-10.5 [facility] Comment on above: Performed By: #### C MP ####[facility] ([place] [address] [place] [address] VIR Chloride [Moles/Vol] 97 mmol/L Low 98-109 [facility] Comment on above: Performed By: #### C MP ####[facility] ([address] [place] [address] VIR CO2 [Moles/Vol] 23 mmol/L Normal 22-32 [facility] Comment on above: Performed By: #### C MP ####[facility] ([address] [place] [address] VIR Creatinine [Mass/Vol] 1.36 mg/dL High 0.40-1.00 [facility] Comment on above: Result Comment: METH OD TRACEABLE TO IDMS STANDARD Performed By: #### C MP ####[facility] ([address] [address] VIR GFR/1.73 sq M.predicted among non-blacks MDRD (S/P/Bld) [Vol rate/Area] 40 mL/min/{1.73_m2} Low >=60 [facility] Comment on above: Result Comment: eGFR not reported due to non-numeric value for Creatinine.Reported eGFR is based on theCKD-EPI 2020 equation that doesnot use a race coefficient. Performed By: #### C MP ####[facility] ([address] [address] VIR Glucose [Mass/Vol] 204 mg/dL High 65-99 [facility] Comment on above: Performed By: #### C MP ####[facility] ([address] [place] [address] VIR Potassium [Moles/Vol] 4.9 mmol/L Normal 3.5-5.0 [facility] Comment on above: Performed By: #### C MP ####[facility] ([address] [place] [address] VIR Protein [Mass/Vol] 8.3 g/dL High 6.0-8.0 [facility] Comment on above: Performed By: #### C MP ####[facility] ([address] [place] [address] VIR Sodium [Moles/Vol] 135 mmol/L Normal 134-146 [facility] Comment on above: Performed By: #### C MP ####[facility] ([address] [place] [address] VIR Urea nitrogen [Mass/Vol] 18 mg/dL Normal - [facility] Comment on above: Performed By: #### C MP ####[facility] ([address] [place] [address] VIR POCT NURSING URINE MACROSCOP IC UAon 06-10-2025 BILIRUBIN MARYJO Moderate Abnormal Negative [facility] Comment on above: Performed By: #### N UM ####[facility] ([address] [place] [address] VIR BLOOD/HGB MARYJO Trace Abnormal Negative [facility] Comment on above: Performed By: #### N UM ####[facility] ([address] [place] [address] VIR GLUCOSE MARYJO Negative Normal Negative [facility] Comment on above: Performed By: #### N UM ####[facility] ([address] [place] [address] VIR KETONES MARYJO 40 mg/dL Abnormal Negative [facility] Comment on above: Performed By: #### N UM ####[facility] ([address] [place] [address] VIR LEUKOCYTE ESTERASE MARYJO Trace Abnormal Negative [facility] Comment on above: Performed By: #### N UM ####[facility] ([address] [place] [address] VIR NITRITE MARYJO Negative Normal Negative [facility] Comment on above: Performed By: #### N UM ####[facility] ([facility])[address] [place], [place] [address] [address] VIR PH MARYJO 5.5 Normal 5.0, 6.0, 6.5, 7.0, 7.5, 8.0, 8.5, 5.5 [facility] Comment on above: Performed By: #### N UM ####[facility] ([address] [place] [address] VIR PROTEIN MARYJO 100 mg/dL Abnormal Negative [facility] Comment on above: Performed By: #### N UM ####[facility] ([address] [place] [address] VIR SPECIFIC GRAVITY MARYJO >=1.030 Abnormal 1.010, 1.015, 1.020, 1.025 [facility] Comment on above: Performed By: #### N UM ####[facility] ([address] [place] [address] VIR UROBILINOGEN MARYJO 0.2 E.U./dL Normal [facility] Comment on above: Performed By: #### N UM ####[facility] ([address] [address] VIR URINE CULTUREon 06-10-2025 Bacteria identified Cx Nom (U) CULTURE RESULTS MULTIPLE SPECIES PRESENT. PROBABLE COLLECTION CONTAMINATION. SUGGEST REPEAT SPECIMEN. Normal [facility] Comment on above: Performed By: #### U C ####[facility] (TT)[address] [facility] [address], [place] [address] VIR B-TYPE NATRIURETIC PEPTIDEon 06-08-2025 Natriuretic peptide B (Bld) [Mass/Vol] 85 pg/mL Normal <=100 [facility] Comment on above: Performed By: #### B TOUCH UP CARVER ####[facility] ([address] [place] [address] VIR BASIC METABOLIC PANELon 05-16 Anion gap [Moles/Vol] 10 mmol/L Normal 5-15 [facility] Comment on above: Performed By: #### B MP ####[facility] ([address] [place] [address] VIR Calcium [Mass/Vol] 9.3 mg/dL Normal 8.5-10.5 [facility] Comment on above: Performed By: #### B MP ####[facility] ([address] [place] [address] VIR Chloride [Moles/Vol] 101 mmol/L Normal 98-109 [facility] Comment on above: Performed By: #### B MP ####[facility] ([address] [place] [address] VIR CO2 [Moles/Vol] 24 mmol/L Normal 22-32 [facility] Comment on above: Performed By: #### B MP ####[facility] ([address] [place] [address] VIR Creatinine [Mass/Vol] 1.31 mg/dL High 0.40-1.00 [facility] Comment on above: Result Comment: METH OD TRACEABLE TO IDMS STANDARD Performed By: #### B MP ####[facility] ([address] [place] [address] VIR GFR/1.73 sq M.predicted among non-blacks MDRD (S/P/Bld) [Vol rate/Area] 42 mL/min/{1.73_m2} Low >=60 [facility] Comment on above: Result Comment: eGFR not reported due to non-numeric value for Creatinine.Reported eGFR is based on theCKD-EPI 2020 equation that doesnot use a race coefficient. Performed By: #### B MP ####[facility] ([address] [place] [address] VIR Glucose [Mass/Vol] 174 mg/dL High 65-99 [facility] Comment on above: Performed By: #### B MP ####[facility] ([address] [address] VIR Potassium [Moles/Vol] 4.2 mmol/L Normal 3.5-5.0 [facility] Comment on above: Performed By: #### B MP ####[facility] ([address] [address] VIR Sodium [Moles/Vol] 135 mmol/L Normal 134-146 [facility] Comment on above: Performed By: #### B MP ####[facility] ([address] [address] VIR Urea nitrogen [Mass/Vol] 14 mg/dL Normal 5-27 [facility] Comment on above: Performed By: #### B MP ####[facility] ([address] [address] VIR CBC WITH AUTO DIFFERENTIALon 06-08-2025 BASOPHILS ABSOLUTE COUNT (10*3/UL) BY AUTOMATED COUNT 0.0 10*3/uL Normal 0.0-0.2 [facility] Comment on above: Performed By: #### C BCA ####[facility] ([address] [address] VIR BASOPHILS RELATIVE PERCENT BY AUTOMATED COUNT 0.5 % Normal [facility] Comment on above: Performed By: #### C BCA ####[facility] ([address] [address] VIR CELLAVISION DIFFERENTIAL TYPE AUTOMATED DIFFERENTIAL Normal [facility] Comment on above: Performed By: #### C BCA ####[facility] ([address] [address] VIR Eosinophils (Bld) [#/Vol] 0.2 10*3/uL Normal 0.0-0.4 [facility] Comment on above: Performed By: #### C BCA ####[facility] ([address] [address] VIR EOSINOPHILS RELATIVE PERCENT BY AUTOMATED COUNT 2.4 % Normal [facility] Comment on above: Performed By: #### C BCA ####[facility] ([address] [address] VIR Erythrocyte distribution width (RBC) [Ratio] 15.7 % High 11.5-15 [facility] Comment on above: Performed By: #### C BCA ####[facility] ([address] [address] VIR Hematocrit (Bld) [Volume fraction] 32.1 % Low 35-47 [facility] [facility] Comment on above: Performed By: #### C BCA ####[facility] ([address] [address] VIR Hemoglobin (Bld) [Mass/Vol] 10.5 g/dL Low 11.7-15.5 [facility] Comment on above: Performed By: #### C BCA ####[facility] ([address] [address] VIR LYMPHOCYTES ABSOLUTE COUNT (10*3/UL) BY AUTOMATED COUNT 1.5 10*3/uL Normal 1.0-3.5 [facility] Comment on above: Performed By: #### C BCA ####[facility] ([address] [address] VIR LYMPHOCYTES RELATIVE PERCENT BY AUTOMATED COUNT 18.7 % Normal [facility] Comment on above: Performed By: #### C BCA ####[facility] ([address] [address] VIR MCH (RBC) [Entitic mass] 26.4 pg Low 27-34 [facility] Comment on above: Performed By: #### C BCA ####[facility] ([address] [place] [address] VIR MCHC (RBC) [Mass/Vol] 32.7 g/dL Normal 32-36 [facility] Comment on above: Performed By: #### C BCA ####[facility] ([address] [place] [address] VIR MCV (RBC) [Entitic vol] 81 fL Normal 80-100 [facility] Comment on above: Performed By: #### C BCA ####[facility] ([address] [place] [address] VIR MONOCYTES ABSOLUTE COUNT (10*3/UL) BY AUTOMATED COUNT 0.7 10*3/uL Normal 0.0-0.9 [facility] Comment on above: Performed By: #### C BCA ####[facility] ([address] [address] VIR MONOCYTES RELATIVE PERCENT BY AUTOMATED COUNT 9.1 % Normal [facility] Comment on above: Performed By: #### C BCA ####[facility] ([address] [place] [address] VIR NEUTROPHILS ABSOLUTE COUNT BY AUTOMATED COUNT 5.6 10*3/uL Normal 1.5-6.6 [facility] Comment on above: Performed By: #### C BCA ####[facility] ([address] [place] [address] VIR NEUTROPHILS RELATIVE PERCENT BY AUTOMATED COUNT 69.3 % Normal [facility] Comment on above: Performed By: #### C BCA ####[facility] ([address] [place] [address] VIR Platelet mean volume (Bld) [Entitic vol] 8.0 fL Normal 7-12 [facility] Comment on above: Performed By: #### C BCA ####[facility] ([address] [place] [address] VIR Platelets (Bld) [#/Vol] 317 10*3/uL Normal 150-450 [facility] Comment on above: Performed By: #### C BCA ####[facility] ([address] [place] [address] VIR RBC COUNT 3.98 X10E12/L Normal 3.8-5.2 [facility] Comment on above: Performed By: #### C BCA ####[facility] ([address] [place] [address] VIR WBC (Bld) [#/Vol] 8.1 10*3/uL Normal 4-11 [facility] Comment on above: Performed By: #### C BCA ####[facility] ([address] [place] [address] VIR MAGNESIUMon 06-08-2025 Magnesium [Mass/Vol] 1.8 mg/dL Normal 1.8-2.6 [facility] Comment on above: Performed By: #### M G ####[facility] ([address] [place] [address] VIR POCT NURSING URINE MACROSCOP IC UAon 06-08-2025 BILIRUBIN MARYJO Negative Normal Negative [facility] Comment on above: Performed By: #### N UM ####[facility] ([address] [place] [address] VIR BLOOD/HGB MARYJO Negative Normal Negative [facility] Comment on above: Performed By: #### N UM ####[facility] ([address] [place] [address] VIR GLUCOSE MARYJO Negative Normal Negative [facility] Comment on above: Performed By: #### N UM ####[facility] ([address] [place] [address] VIR KETONES MARYJO Trace Abnormal Negative [facility] Comment on above: Performed By: #### N UM ####[facility] ([address] [address] VIR LEUKOCYTE ESTERASE MARYJO Large Abnormal Negative [facility] Comment on above: Performed By: #### N UM ####[facility] ([address] [address] VIR NITRITE MARYJO Negative Normal Negative [facility] Comment on above: Performed By: #### N UM ####[facility] ([address] [address] VIR PH MARYJO 7.0 Normal 5.0, 6.0, 6.5, 7.0, 7.5, 8.0, 8.5, 5.5 [facility] Comment on above: Performed By: #### N UM ####[facility] ([address] [address] VIR PROTEIN MARYJO Negative Normal Negative [facility] Comment on above: Performed By: #### N UM ####[facility] ([address] [address] VIR SPECIFIC GRAVITY MARYJO 1.015 Normal 1.010, 1.015, 1.020, 1.025 [facility] Comment on above: Performed By: #### N UM ####[facility] ([address] [address] VIR UROBILINOGEN MARYJO 0.2 E.U./dL Normal [facility] Comment on above: Performed By: #### N UM ####[facility] ([address] [address] VIR THYROID PROFILE INCLUDES TSH FT4on 06-08-2025 Free T4 [Mass/Vol] 1.21 ng/dL Normal 0.61-1.60 [facility] Comment on above: Performed By: #### T HYR ####[facility] ([facility])[address] [place] [address] [place] [address] VIR TSH 2.66 uIU/mL Normal 0.49-4.67 [facility] Comment on above: Performed By: #### T HYR ####[facility] ([facility])[address] [place] [address].[place] [address] VIR TROP I, HIGH SENSITIVITY 1 H OURon 06-08-2025 TROPONIN I, HIGH SENSITIVITY 7 ng/L Normal <16 [facility] Comment on above: Performed By: #### T NIHS1 ####[facility] ([facility])[address] [place] [address].[place] [address] VIR TROPONIN I, HIGH SENSITIVITY 0 HOURon 06-08-2025 TROPONIN I, HIGH SENSITIVITY 7 ng/L Normal <16 [facility] Comment on above: Performed By: #### T NIHS0 ####[facility] ([facility])[address] [place] [address].[place] [address] VIR XR CHEST 1 VWon 06-08-2025 XR CHEST 1 VW Normal [facility] XR Pelvis 1 or 2 [facility] Imaging Result: AP Pelvis Osteopenia noted Mild distraction of less trochanteric avulsion fracture. Soft tissue vascular calcifications are prominent No effusion. Remote sclerotic changes from pubic ramus fracture bilaterally with mild degenerative changes of hip Impression: stable appearing right hip lesser trochanteric avulsion fracture. [facility] Radiology Study observation (narrative) [facility] XR HIP RT 2-3 VIEWS W OR WO PELVISon 05-30-2025 XR HIP RT 2-3 VIEWS W OR WO PELVIS Normal [facility] CT HEAD WO IV CONTRASTon CT [...] Sukhjinder Ferrara. 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, also needs shunt series x ray same day Follow-Upon 05-22-2025 Follow-Up [id number] Jb Dee 1945 F Date Provider Department Center 05/22/2025 VALE TAMAYO [facility] SURG [place] Family History Problem Relation Age of Onset Diabetes Mother Hypertension Father Coronary artery disease Father Family Status - Relation Status Age at Mother Father Level of Service:[address] MO OFFICE/OUTPATIENT ESTABLISHED MOD MDM 30 MIN Normal [facility] BEDSIDE GLUCOSEon 05-15-2025 Glucose [Mass/Vol] 320 mg/dL High 65-99 [facility] Comment on above: Performed By: #### B EDG ####[facility] ([facility])[address] [place] [address].[place] [address] [facility] Bedside Glucose *Place/Obtai n serum glucose if >500 per glucometer.on 05-15-2025 Glucose [Mass/Vol] 320 mg/dL High 65 - 99 mg/dL [facility] Interpretation and review of laboratory results Abnormal [facility] CBC WITH AUTO DIFFERENTIALon 05-15-2025 BASOPHILS ABSOLUTE COUNT (10*3/UL) BY AUTOMATED COUNT 0.0 10*3/uL Normal 0.0-0.2 [facility] Comment on above: Performed By: #### C BCA ####[facility] ([address] [address] VIR BASOPHILS RELATIVE PERCENT BY AUTOMATED COUNT 0.5 % Normal [facility] Comment on above: Performed By: #### C BCA ####[facility] ([address] [address] VIR CELLAVISION DIFFERENTIAL TYPE AUTOMATED DIFFERENTIAL Normal [facility] Comment on above: Performed By: #### C BCA ####[facility] ([address] [address] VIR Eosinophils (Bld) [#/Vol] 0.3 10*3/uL Normal 0.0-0.4 [facility] Comment on above: Performed By: #### C BCA ####[facility] ([address] [address] VIR EOSINOPHILS RELATIVE PERCENT BY AUTOMATED COUNT 3.4 % Normal [facility] Comment on above: Performed By: #### C BCA ####[facility] ([address] [address] VIR Erythrocyte distribution width (RBC) [Ratio] 15.5 % High 11.5-15 [facility] Comment on above: Performed By: #### C BCA ####[facility] ([address] [address] VIR Hematocrit (Bld) [Volume fraction] 30.0 % Low 35-47 [facility] Comment on above: Performed By: #### C BCA ####[facility] ([address] [address] VIR Hemoglobin (Bld) [Mass/Vol] 10.1 g/dL Low 11.7-15.5 [facility] Comment on above: Performed By: #### C BCA ####[facility] ([address] [address] VIR LYMPHOCYTES ABSOLUTE COUNT (10*3/UL) BY AUTOMATED COUNT 1.7 10*3/uL Normal 1.0-3.5 [facility] Comment on above: Performed By: #### C BCA ####[facility] ([address] [address] VIR LYMPHOCYTES RELATIVE PERCENT BY AUTOMATED COUNT 19.9 % Normal [facility] Comment on above: Performed By: #### C BCA ####[facility] ([address] [address] VIR MCH (RBC) [Entitic mass] 27.8 pg Normal 27-34 [facility] Comment on above: Performed By: #### C BCA ####[facility] ([address] [address] VIR MCHC (RBC) [Mass/Vol] 33.5 g/dL Normal 32-36 [facility] Comment on above: Performed By: #### C BCA ####[facility] ([address] [place] [address] VIR MCV (RBC) [Entitic vol] 83 fL Normal 80-100 [facility] Comment on above: Performed By: #### C BCA ####[facility] ([address] [address] VIR MONOCYTES ABSOLUTE COUNT (10*3/UL) BY AUTOMATED COUNT 0.8 10*3/uL Normal 0.0-0.9 [facility] Comment on above: Performed By: #### C BCA ####[facility] ([address] [address] VIR MONOCYTES RELATIVE PERCENT BY AUTOMATED COUNT 9.9 % Normal [facility] Comment on above: Performed By: #### C BCA ####[facility] ([address] [place] [address] VIR NEUTROPHILS ABSOLUTE COUNT BY AUTOMATED COUNT 5.7 10*3/uL Normal 1.5-6.6 [facility] Comment on above: Performed By: #### C BCA ####[facility] ([address] [place] [address] VIR NEUTROPHILS RELATIVE PERCENT BY AUTOMATED COUNT 66.3 % Normal [facility] Comment on above: Performed By: #### C BCA ####[facility] ([address] [place] [address] VIR Platelet mean volume (Bld) [Entitic vol] 8.7 fL Normal 7-12 [facility] Comment on above: Performed By: #### C BCA ####[facility] ([address] [place] [address] VIR Platelets (Bld) [#/Vol] 196 10*3/uL Normal 150-450 [facility] Comment on above: Performed By: #### C BCA ####[facility] ([address] [place] [address] VIR RBC COUNT 3.62 X10E12/L Low 3.8-5.2 [facility] Comment on above: Performed By: #### C BCA ####[facility] ([address] [place] [address] VIR WBC (Bld) [#/Vol] 8.6 10*3/uL Normal 4-11 [facility] Comment on above: Performed By: #### C BCA ####[facility] ([address] [place] [address] VIR CBC auto differentialon 07-0 Basophils (Bld) [#/Vol] 0 10*3/uL 0.0 - 0.2 10*3/uL [facility] System Basophils/100 WBC (Bld) 0.5 % [facility] Differential cell count method Nom (Bld) AUTOMATED DIFFERENTIAL [facility] Eosinophils (Bld) [#/Vol] 0.3 10*3/uL 0.0 - 0.4 10*3/uL [facility] System Eosinophils/100 WBC (Bld) 3.4 % [facility] Erythrocyte distribution width (RBC) [Ratio] 15.5 % High 11.5 - 15 % [facility] System Hematocrit (Bld) [Volume fraction] 30 % Low 35 - 47 % [facility] Hemoglobin (Bld) [Mass/Vol] 10.1 g/dL Low 11.7 - 15.5 g/dL [facility] Interpretation and review of laboratory results Abnormal [facility] Lymphocytes (Bld) [#/Vol] 1.7 10*3/uL 1.0 - 3.5 10*3/uL [facility] System Lymphocytes/100 WBC (Bld) 19.9 % [facility] MCH (RBC) [Entitic mass] 27.8 pg 27 - 34 pg [facility] MCHC (RBC) [Mass/Vol] 33.5 g/dL 32 - 36 g/dL [facility] MCV (RBC) [Entitic vol] 83 fL 80 - 100 fL [facility] Monocytes (Bld) [#/Vol] 0.8 10*3/uL 0.0 - 0.9 10*3/uL [facility] Monocytes/100 WBC (Bld) 9.9 % [facility] Neutrophils (Bld) [#/Vol] 5.7 10*3/uL 1.5 - 6.6 10*3/uL [facility] Neutrophils/100 WBC (Bld) 66.3 % [facility] Platelet mean volume (Bld) [Entitic vol] 8.7 fL 7 - 12 fL [facility] Platelets (Bld) [#/Vol] 196 10*3/uL [facility] RBC (Bld) [#/Vol] 3.62 10*6/uL Low [facility] WBC LM Ql (Sput) 8.6 [facility] COMPREHENSIVE METABOLIC PANE Dickson 05-15-2025 Albumin [Mass/Vol] 2.9 g/dL Low 3.2-5.3 [facility] Comment on above: Performed By: #### C MP ####[facility] ([address] [place] [address] VIR ALP [Catalytic activity/Vol] 125 U/L Normal 39-130 [facility] Comment on above: Performed By: #### C MP ####[facility] ([address] [place] [address] VIR ALT [Catalytic activity/Vol] 14 U/L Normal <=31 [facility] Comment on above: Performed By: #### C MP ####[address] [place] [place] [address] VIR Anion gap [Moles/Vol] 8 mmol/L Normal 5-15 [facility] Comment on above: Performed By: #### C MP ####[address] [place] [address] VIR AST [Catalytic activity/Vol] 17 U/L Normal <=41 [facility] Comment on above: Performed By: #### C MP ####[facility] ([address] [place] [address] VIR Bilirubin [Mass/Vol] 0.6 mg/dL Normal 0.3-1.2 [facility] Comment on above: Performed By: #### C MP ####[facility] ([address] [place] [address] VIR Calcium [Mass/Vol] 9.4 mg/dL Normal 8.5-10.5 [facility] Comment on above: Performed By: #### C MP ####[facility] ([address] [place] [address] VIR Chloride [Moles/Vol] 102 mmol/L Normal 98-109 [facility] Comment on above: Performed By: #### C MP ####[facility] ([facility])[address] [place] [address] [place] [address] VIR CO2 [Moles/Vol] 26 mmol/L Normal 22-32 [facility] Comment on above: Performed By: #### C MP ####[facility] ([facility])[address] [place], [place] [address]E.[place] [address] VIR Creatinine [Mass/Vol] 1.20 mg/dL High 0.40-1.00 [facility] Comment on above: Result Comment: METH OD TRACEABLE TO IDMS STANDARD Performed By: #### C MP ####[facility] ([address] [place] [address] VIR GFR/1.73 sq M.predicted among non-blacks MDRD (S/P/Bld) [Vol rate/Area] 46 mL/min/{1.73_m2} Low >=60 [facility] Comment on above: Result Comment: eGFR not reported due to non-numeric value for Creatinine. Performed By: #### C MP ####[facility] ([address] [place] [address] VIR Glucose [Mass/Vol] 152 mg/dL High 65-99 [facility] Comment on above: Performed By: #### C MP ####[facility] ([address] [place] [address] VIR Potassium [Moles/Vol] 4.6 mmol/L Normal 3.5-5.0 [facility] Comment on above: Performed By: #### C MP ####[facility] ([address] [address] VIR Protein [Mass/Vol] 7.0 g/dL Normal 6.0-8.0 [facility] Comment on above: Performed By: #### C MP ####[facility] ([facility])[address] [facility] [place] [address] VIR Sodium [Moles/Vol] 136 mmol/L Normal 134-146 [facility] Comment on above: Performed By: #### C MP ####[facility] ([address] [place] [address] VIR Urea nitrogen [Mass/Vol] 22 mg/dL Normal 5-27 [facility] Comment on above: Performed By: #### C MP ####[facility] ([address] [address] VIR Comprehensive metabolic pane dickson 05-15-2025 Albumin [Mass/Vol] 2.9 g/dL Low 3.2 - 5.3 g/dL [facility] ALP [Catalytic activity/Vol] 125 U/L 39 - 130 U/L [facility] ALT No additional P-5'-P [Catalytic activity/Vol] 14 U/L NINF - 31 U/L [facility] Anion gap [Moles/Vol] 8 mmol/L 5 - 15 mmol/L [facility] AST [Catalytic activity/Vol] 17 U/L NINF - 41 U/L [facility] Bilirubin [Mass/Vol] 0.6 mg/dL 0.3 - 1.2 mg/dL [facility] Calcium [Mass/Vol] 9.4 mg/dL 8.5 - 10.5 mg/dL [facility] Chloride [Moles/Vol] 102 mmol/L 98 - 109 mmol/L [facility] CO2 [Moles/Vol] 26 mmol/L 22 - 32 mmol/L [facility] Creatinine [Mass/Vol] 1.2 mg/dL High 0.40 - 1.00 mg/dL [facility] Comment on above: METHOD TRACEABLE TO IDMS STANDARD EGFR Non-Race Dependent 46 Low - PINF [facility] Comment on above: eGFR not reported du e to non-numeric value for Creatinine. Glucose [Mass/Vol] 152 mg/dL High 65 - 99 mg/dL [facility] Interpretation and review of laboratory results Abnormal [facility] Potassium [Moles/Vol] 4.6 mmol/L 3.5 - 5.0 mmol/L [facility] Protein [Mass/Vol] 7 g/dL 6.0 - 8.0 g/dL [facility] Sodium [Moles/Vol] 136 mmol/L 134 - 146 mmol/L [facility] Urea nitrogen [Mass/Vol] 22 mg/dL 5 - 27 mg/dL [facility] MAGNESIUMon 05-15-2025 Magnesium [Mass/Vol] 2.0 mg/dL Normal 1.8-2.6 [facility] Comment on above: Performed By: #### M G ####[facility] ([address] [address] VIR Magnesiumon 05-15-2025 Interpretation and review of laboratory results Normal [facility] Magnesium [Mass/Vol] 2 mg/dL 1.8 - 2.6 mg/dL [facility] SST TOPon 05-15-[address] [facility] BEDSIDE GLUCOSEon 05-14-2025 Glucose [Mass/Vol] 286 mg/dL High [address] [place] [address] Comment on above: Performed By: #### B EDG ####[facility] ([address] [place] [address] VIR Glucose [Mass/Vol] 308 mg/dL High [address] [place] [address] Comment on above: Performed By: #### B EDG ####[facility] ([address] [address] VIR Glucose [Mass/Vol] 223 mg/dL High [address] [place] [address] Comment on above: Performed By: #### B EDG ####[facility] ([address] [address] VIR Bedside Glucose *Place/Obtai n serum glucose if >500 per glucometer.on 05-14-2025 Glucose [Mass/Vol] 286 mg/dL High 65 - 99 mg/dL [facility] Interpretation and review of laboratory results Abnormal [facility] Glucose [Mass/Vol] 308 mg/dL High 65 - 99 mg/dL [facility] Interpretation and review of laboratory results Abnormal [facility] Glucose [Mass/Vol] 223 mg/dL High 65 - 99 mg/dL [facility] Interpretation and review of laboratory results Abnormal [facility] CBC WITH AUTO DIFFERENTIALon 05-14-2025 BASOPHILS ABSOLUTE COUNT (10*3/UL) BY AUTOMATED COUNT 0.1 10*3/uL Normal 0.0-0.2 [facility] Comment on above: Performed By: #### C BCA ####[facility] ([address] [address] VIR BASOPHILS RELATIVE PERCENT BY AUTOMATED COUNT 0.7 % Normal [facility] Comment on above: Performed By: #### C BCA ####[facility] ([address] [address] VIR CELLAVISION DIFFERENTIAL TYPE AUTOMATED DIFFERENTIAL Normal [facility] Comment on above: Performed By: #### C BCA ####[facility] ([address] [address] VIR Eosinophils (Bld) [#/Vol] 0.5 10*3/uL High 0.0-0.4 [facility] Comment on above: Performed By: #### C BCA ####[facility] ([address] [address] VIR EOSINOPHILS RELATIVE PERCENT BY AUTOMATED COUNT 6.6 % Normal [facility] Comment on above: Performed By: #### C BCA ####[facility] ([address] [address] VIR Erythrocyte distribution width (RBC) [Ratio] 15.5 % High 11.5-15 [facility] Comment on above: Performed By: #### C BCA ####[facility] ([address] [address] VIR Hematocrit (Bld) [Volume fraction] 30.6 % Low 35-47 [facility] Comment on above: Performed By: #### C BCA ####[facility] ([address] [address] VIR Hemoglobin (Bld) [Mass/Vol] 10.3 g/dL Low 11.7-15.5 [facility] Comment on above: Performed By: #### C BCA ####[facility] ([address] [address] VIR LYMPHOCYTES ABSOLUTE COUNT (10*3/UL) BY AUTOMATED COUNT 1.8 10*3/uL Normal 1.0-3.5 [facility] Comment on above: Performed By: #### C BCA ####[facility] ([address] [address] VIR LYMPHOCYTES RELATIVE PERCENT BY AUTOMATED COUNT 23.9 % Normal [facility] Comment on above: Performed By: #### C BCA ####[facility] ([address] [address] VIR MCH (RBC) [Entitic mass] 28.1 pg Normal 27-34 [facility] [facility] Comment on above: Performed By: #### C BCA ####[facility] ([address] [address] VIR MCHC (RBC) [Mass/Vol] 33.5 g/dL Normal 32-36 [facility] Comment on above: Performed By: #### C BCA ####[facility] ([address] [address] VIR MCV (RBC) [Entitic vol] 84 fL Normal 80-100 [facility] Comment on above: Performed By: #### C BCA ####[facility] ([address] [address] VIR MONOCYTES ABSOLUTE COUNT (10*3/UL) BY AUTOMATED COUNT 1.0 10*3/uL High 0.0-0.9 [facility] Comment on above: Performed By: #### C BCA ####[facility] ([address] [address] VIR MONOCYTES RELATIVE PERCENT BY AUTOMATED COUNT 12.9 % Normal [facility] Comment on above: Performed By: #### C BCA ####[facility] ([address] [address] VIR NEUTROPHILS ABSOLUTE COUNT BY AUTOMATED COUNT 4.2 10*3/uL Normal 1.5-6.6 [facility] Comment on above: Performed By: #### C BCA ####[facility] ([address] [address] VIR NEUTROPHILS RELATIVE PERCENT BY AUTOMATED COUNT 55.9 % Normal [facility] Comment on above: Performed By: #### C BCA ####[facility] ([address] [address] VIR Platelet mean volume (Bld) [Entitic vol] 8.7 fL Normal 7-12 [facility] Comment on above: Performed By: #### C BCA ####[facility] ([address] [place] [address] VIR Platelets (Bld) [#/Vol] 166 10*3/uL Normal 150-450 [facility] Comment on above: Performed By: #### C BCA ####[facility] ([address] [address] VIR RBC COUNT 3.65 X10E12/L Low 3.8-5.2 [facility] Comment on above: Performed By: #### C BCA ####[facility] ([facility] [place] [address] [place] [address] VIR WBC (Bld) [#/Vol] 7.6 10*3/uL Normal 4-11 [facility] Comment on above: Performed By: #### C NATIVIDAD ####[facility] ([facility])[address] [place] [address] [place] [address] VIR CBC auto differentialon 04-17 Basophils (Bld) [#/Vol] 0.1 10*3/uL 0.0 - 0.2 10*3/uL [facility] Basophils/100 WBC (Bld) 0.7 % [facility] Differential cell count method Nom (Bld) AUTOMATED DIFFERENTIAL [facility] Eosinophils (Bld) [#/Vol] 0.5 10*3/uL High 0.0 - 0.4 10*3/uL [facility] Eosinophils/100 WBC (Bld) 6.6 % [facility] Erythrocyte distribution width (RBC) [Ratio] 15.5 % High 11.5 - 15 % [facility] Hematocrit (Bld) [Volume fraction] 30.6 % Low 35 - 47 % [facility] Hemoglobin (Bld) [Mass/Vol] 10.3 g/dL Low 11.7 - 15.5 g/dL [facility] Interpretation and review of laboratory results Abnormal [facility] Lymphocytes (Bld) [#/Vol] 1.8 10*3/uL 1.0 - 3.5 10*3/uL [facility] Lymphocytes/100 WBC (Bld) 23.9 % [facility] MCH (RBC) [Entitic mass] 28.1 pg 27 - 34 pg [facility] MCHC (RBC) [Mass/Vol] 33.5 g/dL 32 - 36 g/dL [facility] MCV (RBC) [Entitic vol] 84 fL 80 - 100 fL [facility] Monocytes (Bld) [#/Vol] 1 10*3/uL High 0.0 - 0.9 10*3/uL [facility] Monocytes/100 WBC (Bld) 12.9 % [facility] Neutrophils (Bld) [#/Vol] 4.2 10*3/uL 1.5 - 6.6 10*3/uL [facility] Neutrophils/100 WBC (Bld) 55.9 % [facility] Platelet mean volume (Bld) [Entitic vol] 8.7 fL 7 - 12 fL [facility] Platelets (Bld) [#/Vol] 166 10*3/uL [facility] RBC (Bld) [#/Vol] 3.65 10*6/uL Low [facility] WBC LM Ql (Sput) 7.6 [facility] COMPREHENSIVE METABOLIC PANE Dickson 05-14-2025 Albumin [Mass/Vol] 2.9 g/dL Low 3.2-5.3 [facility] Comment on above: Performed By: #### C MP ####[facility] ([address] [address] VIR ALP [Catalytic activity/Vol] 128 U/L Normal 39-130 [facility] Comment on above: Performed By: #### C MP ####[facility] ([address] [address] VIR ALT [Catalytic activity/Vol] 14 U/L Normal <=31 [facility] Comment on above: Performed By: #### C MP ####[facility] ([address] [address] VIR Anion gap [Moles/Vol] 9 mmol/L Normal 5-15 [facility] Comment on above: Performed By: #### C MP ####[facility] ([address] [address] VIR AST [Catalytic activity/Vol] 23 U/L Normal <=41 [facility] Comment on above: Performed By: #### C MP ####[facility] ([address] [address] VIR Bilirubin [Mass/Vol] 0.6 mg/dL Normal 0.3-1.2 [facility] Comment on above: Performed By: #### C MP ####[facility] ([address] [address] VIR Calcium [Mass/Vol] 9.0 mg/dL Normal 8.5-10.5 [facility] Comment on above: Performed By: #### C MP ####[facility] ([address] [address] VIR Chloride [Moles/Vol] 108 mmol/L Normal 98-109 [facility] Comment on above: Performed By: #### C MP ####[facility] ([address] [address] VIR CO2 [Moles/Vol] 22 mmol/L Normal 22-32 [facility] Comment on above: Performed By: #### C MP ####[facility] ([address] [address] VIR Creatinine [Mass/Vol] 1.30 mg/dL High 0.40-1.00 [facility] Comment on above: Result Comment: METH OD TRACEABLE TO IDMS STANDARD Performed By: #### C MP ####[facility] ([address] [address] VIR GFR/1.73 sq M.predicted among non-blacks MDRD (S/P/Bld) [Vol rate/Area] 42 mL/min/{1.73_m2} Low >=60 [facility] Comment on above: Result Comment: eGFR not reported due to non-numeric value for Creatinine. Performed By: #### C MP ####[facility] ([address] [address] VIR Glucose [Mass/Vol] 148 mg/dL High 65-99 [facility] Comment on above: Performed By: #### C MP ####[facility] ([address] [place] [address] VIR Potassium [Moles/Vol] 4.4 mmol/L Normal 3.5-5.0 [facility] Comment on above: Performed By: #### C MP ####[facility] ([facility])[address] [place] [address] VIR Protein [Mass/Vol] 6.6 g/dL Normal 6.0-8.0 [facility] Comment on above: Performed By: #### C MP ####[facility] ([facility])[address] [place] [address] VIR Sodium [Moles/Vol] 139 mmol/L Normal 134-146 [facility] Comment on above: Performed By: #### C MP ####[facility] ([facility])[address] [place], [place] [address] [place] [address] VIR Urea nitrogen [Mass/Vol] 27 mg/dL Normal 5-27 [facility] Comment on above: Performed By: #### C MP ####[facility] ([facility])[address] [place], [place] [address] [place] [address]RAIN WO CONTon CT BRAIN WO CONT Normal [facility] CT Head WO contraston 2024 STUDY: [...] Blu Miller MD on 05/14/2025 12:24 PM [facility] Radiology Study observation (narrative) [facility] CT Head WO contrastOrdered B y: Blu Miller on 05-14-2025 [facility] Work Phone: Comprehensive metabolic pane dickson 05-14-2025 Albumin [Mass/Vol] 2.9 g/dL Low 3.2 - 5.3 g/dL [facility] ALP [Catalytic activity/Vol] 128 U/L 39 - 130 U/L [facility] ALT No additional P-5'-P [Catalytic activity/Vol] 14 U/L NINF - 31 U/L [facility] Anion gap [Moles/Vol] 9 mmol/L 5 - 15 mmol/L [facility] AST [Catalytic activity/Vol] 23 U/L NINF - 41 U/L [facility] Bilirubin [Mass/Vol] 0.6 mg/dL 0.3 - 1.2 mg/dL [facility] Calcium [Mass/Vol] 9 mg/dL 8.5 - 10.5 mg/dL [facility] Chloride [Moles/Vol] 108 mmol/L 98 - 109 mmol/L [facility] CO2 [Moles/Vol] 22 mmol/L 22 - 32 mmol/L [facility] Creatinine [Mass/Vol] 1.3 mg/dL High 0.40 - 1.00 mg/dL [facility] Comment on above: METHOD TRACEABLE TO IDCA STANDARD EGFR Non-Race Dependent 42 Low - PINF [facility] Comment on above: eGFR not reported du e to non-numeric value for Creatinine. Glucose [Mass/Vol] 148 mg/dL High 65 - 99 mg/dL [facility] Interpretation and review of laboratory results Abnormal [facility] Potassium [Moles/Vol] 4.4 mmol/L 3.5 - 5.0 mmol/L [facility] Protein [Mass/Vol] 6.6 g/dL 6.0 - 8.0 g/dL [facility] Sodium [Moles/Vol] 139 mmol/L 134 - 146 mmol/L [facility] Urea nitrogen [Mass/Vol] 27 mg/dL 5 - 27 mg/dL [facility] MAGNESIUMon 05-14-2025 Magnesium [Mass/Vol] 2.1 mg/dL Normal 1.8-2.6 [facility] Comment on above: Performed By: #### M G ####[address] [address] VIR Magnesium [Mass/Vol] 1.6 mg/dL Low 1.8-2.6 [facility] Comment on above: Performed By: #### M G ####[address] [address] VIR Magnesiumon 05-14-2025 Interpretation and review of laboratory results Normal [facility] Magnesium [Mass/Vol] 2.1 mg/dL 1.8 - 2.6 mg/dL [facility] Interpretation and review of laboratory results Abnormal [facility] Magnesium [Mass/Vol] 1.6 mg/dL Low 1.8 - 2.6 mg/dL [facility] APTTon 05-13-2025 aPTT Coag (PPP) [Time] 30 s [facility] Interpretation and review of laboratory results Normal [facility] aPTT Coag (Bld) [Time] 30 s Normal 26-37 [facility] Comment on above: Performed By: #### P TT ####[facility] ([address] [address] VIR B-TYPE NATRIURETIC PEPTIDEon 05-13-2025 Natriuretic peptide B (Bld) [Mass/Vol] 602 pg/mL High <=100 [facility] Comment on above: Performed By: #### B TOUCH UP CARVER ####[facility] ([address] [address] VIR B-type natriuretic peptideOr dered By: Haven Tao on 05-13-2025 Interpretation and review of laboratory results Abnormal [facility] Natriuretic peptide B (Bld) [Mass/Vol] 602 pg/mL High NINF - 100 pg/mL [facility] BEDSIDE GLUCOSEon 05-13-2025 Glucose [Mass/Vol] 256 mg/dL High 65-99 [facility] Comment on above: Performed By: #### B EDG ####[facility] ([address] [address] VIR Glucose [Mass/Vol] 384 mg/dL High 65-99 [facility] Comment on above: Performed By: #### B EDG ####[facility] ([address] [address] VIR BLOOD CULTUREon 05-13-2025 Bacteria identified Cx Nom (Bld) CULTURE RESULTS NO GROWTH 5 DAYS Normal [facility] Comment on above: Order Comment: *SIRS [...] are improving Performed By: #### B C ####[facility] ([facility])[address], [place] [address] VIR Bacteria identified Cx Nom (Bld) CULTURE RESULTS NO GROWTH 5 DAYS Normal [facility] Comment on above: Order Comment: *SIRS [...] bottle received Performed By: #### B C ####[facility] ([facility])[address], [place] [address] VIR BLOOD GAS, ARTERIALon 2024 BASE,DEFICIT -3.0 mmol/L Low 0.0-2.0 [facility] Comment on above: Performed By: #### A BG ####[facility] ([address] [address] VIR HCO3 (Bld) [Moles/Vol] 22.8 mmol/L Normal 22.0-26.0 [facility] Comment on above: Performed By: #### A BG ####[facility] ([address] [address] VIR Oxygen saturation in Blood 92.0 % Normal >90.0 [facility] Comment on above: Performed By: #### A BG ####[facility] ([address] [address] VIR PCO2 ARTERIAL 41.4 mmHg Normal 35.0-45.0 [facility] Comment on above: Performed By: #### A BG ####[facility] ([address] [place] [address] VIR PH ARTERIAL 7.349 Low 7.350-7.45 0 [facility] Comment on above: Performed By: #### A BG ####[facility] ([facility])[address] [place] [address].[place] [address] VIR PO2 ARTERIAL 67 mmHg Low 80-100 [facility] Comment on above: Performed By: #### A BG ####[facility] ([facility])[address] [place] [address].[place] [address] VIR POC TATO'S TEST N/A Normal [facility] Comment on above: Performed By: #### A BG ####[facility] ([address] [place] [address] VIR SAMPLE SITE L Rad Normal [facility] Comment on above: Performed By: #### A BG ####[facility] ([address] [place] [address] VIR SAMPLE TYPE ARTERIAL Normal [facility] Comment on above: Performed By: #### A BG ####[facility] ([address] [place] [address] VIR SOURCE OF OXYGEN NC Normal [facility] Comment on above: Performed By: #### A BG ####[facility] ([address] [place] [address] VIR Bedside Glucose *Place/Obtai n serum glucose if >500 per glucometer.on 05-13-2025 Glucose [Mass/Vol] 256 mg/dL High 65 - 99 mg/dL [facility] Interpretation and review of laboratory results Abnormal [facility] Glucose [Mass/Vol] 384 mg/dL High 65 - 99 mg/dL [facility] Interpretation and review of laboratory results Abnormal [facility] C-REACTIVE PROTEINon 025 C REACTIVE PROTEIN 6.1 mg/dL High <=0.7 [facility] Comment on above: Performed By: #### C RP ####[facility] ([address] [address] VIR C-reactive proteinon 025 CRP [Mass/Vol] 6.1 mg/dL High NINF - 0.7 mg/dL [facility] Interpretation and review of laboratory results Abnormal [facility] CBC WITH AUTO DIFFERENTIALon 05-13-2025 BASOPHILS ABSOLUTE COUNT (10*3/UL) BY AUTOMATED COUNT 0.1 10*3/uL Normal 0.0-0.2 [facility] Comment on above: Performed By: #### C BCA ####[address] [address] VIR BASOPHILS RELATIVE PERCENT BY AUTOMATED COUNT 0.6 % Normal [facility] Comment on above: Performed By: #### C BCA ####[address] [address] VIR CELLAVISION DIFFERENTIAL TYPE AUTOMATED DIFFERENTIAL Normal [facility] Comment on above: Performed By: #### C BCA ####[address] [address] VIR Eosinophils (Bld) [#/Vol] 0.1 10*3/uL Normal 0.0-0.4 [facility] Comment on above: Performed By: #### C BCA ####[facility] ([address] [address] VIR EOSINOPHILS RELATIVE PERCENT BY AUTOMATED COUNT 1.6 % Normal [facility] Comment on above: Performed By: #### C BCA ####[address] [address] VIR Erythrocyte distribution width (RBC) [Ratio] 15.8 % High 11.5-15 [facility] Comment on above: Performed By: #### C BCA ####[facility] ([address] [place] [address] VIR Hematocrit (Bld) [Volume fraction] 36.0 % Normal 35-47 [facility] Comment on above: Performed By: #### C BCA ####[facility] ([address] [address] VIR Hemoglobin (Bld) [Mass/Vol] 11.8 g/dL Normal 11.7-15.5 [facility] Comment on above: Performed By: #### C BCA ####[facility] ([address] [address] VIR LYMPHOCYTES ABSOLUTE COUNT (10*3/UL) BY AUTOMATED COUNT 1.7 10*3/uL Normal 1.0-3.5 [facility] Comment on above: Performed By: #### C BCA ####[facility] ([address] [address] VIR LYMPHOCYTES RELATIVE PERCENT BY AUTOMATED COUNT 18.7 % Normal [facility] Comment on above: Performed By: #### C BCA ####[facility] ([address] [address] VIR MCH (RBC) [Entitic mass] 27.5 pg Normal 27-34 [facility] Comment on above: Performed By: #### C BCA ####[facility] ([address] [place] [address] VIR MCHC (RBC) [Mass/Vol] 32.7 g/dL Normal 32-36 [facility] Comment on above: Performed By: #### C BCA ####[facility] ([address] [address] VIR MCV (RBC) [Entitic vol] 84 fL Normal 80-100 [facility] Comment on above: Performed By: #### C BCA ####[facility] ([address] [address] VIR MONOCYTES ABSOLUTE COUNT (10*3/UL) BY AUTOMATED COUNT 0.9 10*3/uL Normal 0.0-0.9 [facility] Comment on above: Performed By: #### C BCA ####[facility] ([facility])[address] [place], [place] [address] [address] VIR MONOCYTES RELATIVE PERCENT BY AUTOMATED COUNT 10.3 % Normal [facility] Comment on above: Performed By: #### C BCA ####[facility] ([address] [place] [address] VIR NEUTROPHILS ABSOLUTE COUNT BY AUTOMATED COUNT 6.2 10*3/uL Normal 1.5-6.6 [facility] Comment on above: Performed By: #### C BCA ####[facility] ([address] [place] [address] VIR NEUTROPHILS RELATIVE PERCENT BY AUTOMATED COUNT 68.8 % Normal [facility] Comment on above: Performed By: #### C BCA ####[facility] ([address] [place] [address] VIR Platelet mean volume (Bld) [Entitic vol] 8.4 fL Normal 7-12 [facility] Comment on above: Performed By: #### C BCA ####[facility] ([address] [place] [address] VIR Platelets (Bld) [#/Vol] 266 10*3/uL Normal 150-450 [facility] Comment on above: Performed By: #### C BCA ####[facility] ([address] [address] VIR RBC COUNT 4.27 X10E12/L Normal 3.8-5.2 [facility] Comment on above: Performed By: #### C BCA ####[facility] ([address] [place] [address] VIR WBC (Bld) [#/Vol] 9.0 10*3/uL Normal 4-11 [facility] Comment on above: Performed By: #### C BCA ####[facility] ([facility])[address] [place] [address] VIR CBC auto differentialon 04-16 Basophils (Bld) [#/Vol] 0.1 10*3/uL 0.0 - 0.2 10*3/uL [facility] Basophils/100 WBC (Bld) 0.6 % [facility] Differential cell count method Nom (Bld) AUTOMATED DIFFERENTIAL [facility] Eosinophils (Bld) [#/Vol] 0.1 10*3/uL 0.0 - 0.4 10*3/uL [facility] Eosinophils/100 WBC (Bld) 1.6 % [facility] Erythrocyte distribution width (RBC) [Ratio] 15.8 % High 11.5 - 15 % [facility] Hematocrit (Bld) [Volume fraction] 36 % 35 - 47 % [facility] Hemoglobin (Bld) [Mass/Vol] 11.8 g/dL 11.7 - 15.5 g/dL [facility] Interpretation and review of laboratory results Abnormal [facility] Lymphocytes (Bld) [#/Vol] 1.7 10*3/uL 1.0 - 3.5 10*3/uL [facility] Lymphocytes/100 WBC (Bld) 18.7 % [facility] MCH (RBC) [Entitic mass] 27.5 pg 27 - 34 pg [facility] MCHC (RBC) [Mass/Vol] 32.7 g/dL 32 - 36 g/dL [facility] MCV (RBC) [Entitic vol] 84 fL 80 - 100 fL [facility] Monocytes (Bld) [#/Vol] 0.9 10*3/uL 0.0 - 0.9 10*3/uL [facility] Monocytes/100 WBC (Bld) 10.3 % [facility] Neutrophils (Bld) [#/Vol] 6.2 10*3/uL 1.5 - 6.6 10*3/uL [facility] Neutrophils/100 WBC (Bld) 68.8 % [facility] Platelet mean volume (Bld) [Entitic vol] 8.4 fL 7 - 12 fL [facility] Platelets (Bld) [#/Vol] 266 10*3/uL [facility] RBC (Bld) [#/Vol] 4.27 10*6/uL [facility] WBC LM Ql (Sput) 9 [facility] COMPREHENSIVE METABOLIC PANE Dickson 05-13-2025 Albumin [Mass/Vol] 3.6 g/dL Normal 3.2-5.3 [facility] Comment on above: Performed By: #### C MP ####[address] [address] VIR ALP [Catalytic activity/Vol] 160 U/L High 39-130 [facility] Comment on above: Performed By: #### C MP ####[address] [address] VIR ALT [Catalytic activity/Vol] 18 U/L Normal <=31 [facility] Comment on above: Performed By: #### C MP ####[address] [address] VIR Anion gap [Moles/Vol] 10 mmol/L Normal 5-15 [facility] Comment on above: Performed By: #### C MP ####[facility] ([address] [address] VIR AST [Catalytic activity/Vol] 31 U/L Normal <=41 [facility] Comment on above: Performed By: #### C MP ####[address] [address] VIR Bilirubin [Mass/Vol] 0.5 mg/dL Normal 0.3-1.2 [facility] Comment on above: Performed By: #### C MP ####[place] [address] [place] [address] VIR Calcium [Mass/Vol] 9.5 mg/dL Normal 8.5-10.5 [facility] Comment on above: Performed By: #### C MP ####[facility] ([address] [place] [address] VIR Chloride [Moles/Vol] 101 mmol/L Normal 98-109 [facility] Comment on above: Performed By: #### C MP ####[facility] ([address] [place] [address] VIR CO2 [Moles/Vol] 23 mmol/L Normal 22-32 [facility] Comment on above: Performed By: #### C MP ####[facility] ([address] [place] [address] VIR Creatinine [Mass/Vol] 1.41 mg/dL High 0.40-1.00 [facility] Comment on above: Result Comment: METH OD TRACEABLE TO IDMS STANDARD Performed By: #### C MP ####[facility] ([address] [place] [address] VIR GFR/1.73 sq M.predicted among non-blacks MDRD (S/P/Bld) [Vol rate/Area] 38 mL/min/{1.73_m2} Low >=60 [facility] Comment on above: Result Comment: eGFR not reported due to non-numeric value for Creatinine.Reported eGFR is based on theCKD-EPI 1 equation that doesnot use a race coefficient. Performed By: #### C MP ####[facility] ([address] [place] [address] VIR Glucose [Mass/Vol] 300 mg/dL High 65-99 [facility] Comment on above: Performed By: #### C MP ####[facility] ([address] [place] [address] VIR Potassium [Moles/Vol] 4.7 mmol/L Normal 3.5-5.0 [facility] Comment on above: Performed By: #### C MP ####[facility] ([facility])[address] [place] [address] VIR Protein [Mass/Vol] 8.2 g/dL High 6.0-8.0 [facility] Comment on above: Performed By: #### C MP ####[facility] ([facility])[address] [place] [address] VIR Sodium [Moles/Vol] 134 mmol/L Normal 134-146 [facility] Comment on above: Performed By: #### C MP ####[facility] ([facility])[address] [place] [address] VIR Urea nitrogen [Mass/Vol] 31 mg/dL High 5-27 [facility] Comment on above: Performed By: #### C MP ####[facility] ([facility])[address] [place] [address] [place] [address] HIP RT WO CONTon 05-13-20 CT HIP RT WO CONT Normal [facility] CT Hip - right WO contraston [...] Chester Parra MD on 05/13/2025 1:01 PM [facility] Chester Parra M D - 05/13/2025 Study: [...] Chester Parra MD on 05/13/2025 1:01 PM [facility] [place] [facility] Radiology Study observation (narrative) [facility] - right WO contrastOr dered By: Chester Parra on 05-13-2025 [facility] [place] [facility] Work Phone: Comprehensive metabolic pane dickson 05-13-2025 Albumin [Mass/Vol] 3.6 g/dL 3.2 - 5.3 g/dL [facility] [place] [facility] ALP [Catalytic activity/Vol] 160 U/L High 39 - 130 U/L [facility] ALT No additional P-5'-P [Catalytic activity/Vol] 18 U/L NINF - 31 U/L [facility] Anion gap [Moles/Vol] 10 mmol/L 5 - 15 mmol/L [facility] AST [Catalytic activity/Vol] 31 U/L NINF - 41 U/L [facility] Bilirubin [Mass/Vol] 0.5 mg/dL 0.3 - 1.2 mg/dL [facility] Calcium [Mass/Vol] 9.5 mg/dL 8.5 - 10.5 mg/dL [facility] Chloride [Moles/Vol] 101 mmol/L 98 - 109 mmol/L [facility] CO2 [Moles/Vol] 23 mmol/L 22 - 32 mmol/L [facility] Creatinine [Mass/Vol] 1.41 mg/dL High 0.40 - 1.00 mg/dL [facility] Comment on above: METHOD TRACEABLE TO IDMS STANDARD EGFR Non-Race Dependent 38 Low - PINF [facility] Comment on above: eGFR not reported du e to non-numeric value for Creatinine. Reported eGFR is based on the CKD-EPI 2020 equation that does not use a race coefficient. Glucose [Mass/Vol] 300 mg/dL High 65 - 99 mg/dL [facility] Interpretation and review of laboratory results Abnormal [facility] Potassium [Moles/Vol] 4.7 mmol/L 3.5 - 5.0 mmol/L [facility] Protein [Mass/Vol] 8.2 g/dL High 6.0 - 8.0 g/dL [facility] Sodium [Moles/Vol] 134 mmol/L 134 - 146 mmol/L [facility] Urea nitrogen [Mass/Vol] 31 mg/dL High 5 - 27 mg/dL [facility] Critical Careon 05-13-2025 Jack Milligan [...] specialty: yes Care discussed with: admitting provider [facility] ECG 12 leadOrdered By: Jeaneth Quesada on 05-13-2025 [facility] Gas panel (BldA)on 5 Arterial patency Wrist artery --pre arterial puncture N/A [facility] Base deficit (Bld) [Moles/Vol] -3 mmol/L Low 0.0 - 2.0 mmol/L [facility] CO2 (Bld) [Partial pressure] 41.4 mm[Hg] [facility] HCO3 (Bld) [Moles/Vol] 22.8 mmol/L 22.0 - 26.0 mmol/L [facility] Interpretation and review of laboratory results Abnormal [facility] Oxygen (Bld) [Partial pressure] 67 mm[Hg] Low [facility] Oxygen therapy source and amount [CARE] [facility] pH (Bld) 7.349 [pH] Low 7.350 - 7.450 [facility] Specimen site Narrative L Rad [facility] Specimen type Nom (Spec) ARTERIAL [facility] HEMOGLOBINon 05-13-2025 Hemoglobin (Bld) [Mass/Vol] 11.5 g/dL Low 11.7-15.5 [facility] Comment on above: Performed By: #### H GB ####[address] [address] VIR Hemoglobinon 05-13-2025 Hemoglobin (Bld) [Mass/Vol] 11.5 g/dL Low 11.7 - 15.5 g/dL [facility] Interpretation and review of laboratory results Abnormal [facility] LACTATE W/ REFLEXon 05-13-20 25 LACTATE W/REFLEX 1.5 mmol/L Normal 0.4-2.0 [facility] Comment on above: Order Comment: Resul t did not trigger repeat Lactate,re-order if needed. Performed By: #### L ACTS ####[facility] ([address] [place] [address] VIR Lactate w/ Reflexon 05-13-20 Interpretation and review of laboratory results Normal [facility] Lactate (P obed) [Moles/Vol] 1.5 mmol/L 0.4 - 2.0 mmol/L [facility] Result did not toñito er repeat Lactate, re-order if needed. [facility] Light Blue Topon 05-13-2025 Extra Tube Auto Resulted [facility] No Panel Informationon 05-13 [facility] PLATELET COUNTon 05-13-2025 Platelet mean volume (Bld) [Entitic vol] 8.3 fL Normal 7-12 [facility] Comment on above: Performed By: #### P LTCT ####[facility] ([address] [address] VIR Platelets (Bld) [#/Vol] 214 10*3/uL Normal 150-450 [facility] Comment on above: Performed By: #### P LTCT ####[facility] ([address] [address] VIR PROCALCITONINon 05-13-2025 PROCALCITONIN 0.05 ng/mL High <0.05 [facility] Comment on above: Order Comment: <0.50 ng/mL - Low risk of severe sepsis and/or septic shock.<2.00 ng/mL - Recommend retesting within 6-24 hours.>2.00 ng/mL - High risk of sepsis and/or septic shock. Performed By: #### P ROSALBA ####[facility] ([address] [address] VIR PST TOPon 05-13-2025 Extra Tube Auto Resulted [facility] Platelet counton 05-13-2025 Interpretation and review of laboratory results Normal [facility] Platelet mean volume (Bld) [Entitic vol] 8.3 fL 7 - 12 fL [facility] Platelets (Bld) [#/Vol] 214 10*3/uL [facility] Procalcitoninon 05-13-2025 Interpretation and review of laboratory results Abnormal [facility] Procalcitonin IA [Mass/Vol] 0.05 ng/mL High NINF - 0.05 ng/mL [facility] <0.50 ng/mL - Low ri sk of severe sepsis and/or septic shock. <2.00 ng/mL - Recommend retesting within 6-24 hours. >2.00 ng/mL - High risk of sepsis and/or septic shock. [facility] TROP I, HIGH SENSITIVITY 1 H OUR05-13-2025 TROPONIN I, HIGH SENSITIVITY 26 ng/L High <16 [facility] Comment on above: Order Comment: Hooks tions of hs-Troponin may be due to causesother than myocardial ischemia.Recommend serial hs-Troponin testing be performed.For the initial evaluation and management of chestpain patients, refer to the algorithms linked below.Emergency Patient:[email or web address]:[email or web address] Performed By: #### T NIHS1 ####[facility] ([address] [address] VIR TROPONIN I, HIGH SENSITIVITY 0 HOURon 05-13-2025 TROPONIN I, HIGH SENSITIVITY 35 ng/L High <16 [facility] Comment on above: Performed By: #### T NIHS0 ####[facility] ([address] [address] VIR Troponin I, High Sensitivity 0 Houron 05-13-2025 Interpretation and review of laboratory results Abnormal [facility] Troponin I.cardiac High sensitivity method [Mass/Vol] 35 ng/L High NINF - 16 ng/L [facility] Troponin I, High Sensitivity 1 Houron 05-13-2025 Interpretation and review of laboratory results Abnormal [facility] Troponin I.cardiac High sensitivity method [Mass/Vol] 26 ng/L High NINF - 16 ng/L [facility] Elevations of hs-Tro ponin may be due to causes other than myocardial ischemia. Recommend serial hs-Troponin testing be performed. For the initial evaluation and management of chest pain patients, refer to the algorithms linked below. Emergency Patient: [email or web address] Inpatient: [email or web address] [facility] XR CHEST 1 VWon 05-13-2025 XR CHEST 1 VW Normal [facility] XR Chest Single viewon 05-13 Berry Wyman MD - 05/13/2025 Procedure: Chest x-ray performed Number of views:1 History:Shortness of breath Comparison:04/28/2025 Findings: The heart and lungs show no acute findings, and the mediastinum and stanley are grossly negative . Tube overlying right chest stable. Impression: 1. No acute change. Finalized by Berry Wyman MD on 05/13/2025 11:01 AM [facility] Radiology Study observation (narrative) [facility] XR Chest Single viewOrdered By: Berry Wyman on 05-13-2025 [facility] Work Phone: CBC WITH AUTO DIFFERENTIALon 05-12-2025 BASOPHILS ABSOLUTE COUNT (10*3/UL) BY AUTOMATED COUNT 0.0 10*3/uL Normal 0.0-0.2 [facility] Comment on above: Performed By: #### C BCA ####[facility] ([facility])[address] [place] [address].[place] [address] VIR BASOPHILS RELATIVE PERCENT BY AUTOMATED COUNT 0.4 % Normal [facility] Comment on above: Performed By: #### C BCA ####[facility] ([address] [address] VIR CELLAVISION DIFFERENTIAL TYPE AUTOMATED DIFFERENTIAL Normal [facility] Comment on above: Performed By: #### C BCA ####[facility] ([address] [address] VIR Eosinophils (Bld) [#/Vol] 0.2 10*3/uL Normal 0.0-0.4 [facility] Comment on above: Performed By: #### C BCA ####[facility] ([address] [address] VIR EOSINOPHILS RELATIVE PERCENT BY AUTOMATED COUNT 3.5 % Normal [facility] Comment on above: Performed By: #### C BCA ####[address] [address] VIR Erythrocyte distribution width (RBC) [Ratio] 15.8 % High 11.5-15 [facility] Comment on above: Performed By: #### C BCA ####[facility] ([address] [address] VIR Hematocrit (Bld) [Volume fraction] 32.5 % Low 35-47 [facility] Comment on above: Performed By: #### C BCA ####[facility] ([address] [address] VIR Hemoglobin (Bld) [Mass/Vol] 10.6 g/dL Low 11.7-15.5 [facility] Comment on above: Performed By: #### C BCA ####[facility] ([address] [address] VIR LYMPHOCYTES ABSOLUTE COUNT (10*3/UL) BY AUTOMATED COUNT 1.4 10*3/uL Normal 1.0-3.5 [facility] Comment on above: Performed By: #### C BCA ####[facility] ([address] [place] [address] VIR LYMPHOCYTES RELATIVE PERCENT BY AUTOMATED COUNT 20.3 % Normal [facility] Comment on above: Performed By: #### C BCA ####[facility] ([address] [place] [address] VIR MCH (RBC) [Entitic mass] 27.4 pg Normal 27-34 [facility] Comment on above: Performed By: #### C BCA ####[facility] ([address] [place] [address] VIR MCHC (RBC) [Mass/Vol] 32.5 g/dL Normal 32-36 [facility] Comment on above: Performed By: #### C BCA ####[facility] ([address] [place] [address] VIR MCV (RBC) [Entitic vol] 84 fL Normal 80-100 [facility] Comment on above: Performed By: #### C BCA ####[facility] ([address] [place] [address] VIR MONOCYTES ABSOLUTE COUNT (10*3/UL) BY AUTOMATED COUNT 0.7 10*3/uL Normal 0.0-0.9 [facility] Comment on above: Performed By: #### C BCA ####[facility] ([address] [place] [address] VIR MONOCYTES RELATIVE PERCENT BY AUTOMATED COUNT 10.4 % Normal [facility] Comment on above: Performed By: #### C BCA ####[facility] ([address] [place] [address] VIR NEUTROPHILS ABSOLUTE COUNT BY AUTOMATED COUNT 4.5 10*3/uL Normal 1.5-6.6 [facility] Comment on above: Performed By: #### C BCA ####[facility] ([address] [place] [address] VIR NEUTROPHILS RELATIVE PERCENT BY AUTOMATED COUNT 65.4 % Normal [facility] Comment on above: Performed By: #### C BCA ####[facility] ([facility])[address] [place], [place] [address] [address] VIR Platelet mean volume (Bld) [Entitic vol] 8.2 fL Normal 7-12 [facility] Comment on above: Performed By: #### C BCA ####[facility] ([address] [place] [address] VIR Platelets (Bld) [#/Vol] 263 10*3/uL Normal 150-450 [facility] Comment on above: Performed By: #### C BCA ####[facility] ([address] [place] [address] VIR RBC COUNT 3.86 X10E12/L Normal 3.8-5.2 [facility] Comment on above: Performed By: #### C BCA ####[facility] ([address] [place] [address] VIR WBC (Bld) [#/Vol] 6.8 10*3/uL Normal 4-11 [facility] Comment on above: Performed By: #### C BCA ####[facility] ([address] [place] [address] VIR COMPREHENSIVE METABOLIC PANE Dickson 05-12-2025 Albumin [Mass/Vol] 3.3 g/dL Normal 3.2-5.3 [facility] Comment on above: Performed By: #### C MP ####[facility] ([address] [place] [address] VIR ALP [Catalytic activity/Vol] 119 U/L Normal 39-130 [facility] Comment on above: Performed By: #### C MP ####[facility] ([address] [place] [address] VIR ALT [Catalytic activity/Vol] 16 U/L Normal <=31 [facility] Comment on above: Performed By: #### C MP ####[facility] ([place] [address] [place] [address] VIR Anion gap [Moles/Vol] 10 mmol/L Normal 5-15 [facility] Comment on above: Performed By: #### C MP ####[facility] ([place] [address] [place] [address] VIR AST [Catalytic activity/Vol] 21 U/L Normal <=41 [facility] Comment on above: Performed By: #### C MP ####[facility] ([place] [address] [place] [address] VIR Bilirubin [Mass/Vol] 0.4 mg/dL Normal 0.3-1.2 [facility] Comment on above: Performed By: #### C MP ####[facility] ([place] [address] [place] [address] VIR Calcium [Mass/Vol] 8.9 mg/dL Normal 8.5-10.5 [facility] Comment on above: Performed By: #### C MP ####[facility] ([place] [address] [place] [address] VIR Chloride [Moles/Vol] 100 mmol/L Normal 98-109 [facility] Comment on above: Performed By: #### C MP ####[facility] ([place] [address] [place] [address] VIR CO2 [Moles/Vol] 24 mmol/L Normal 22-32 [facility] Comment on above: Performed By: #### C MP ####[facility] ([place] [address] [place] [address] VIR Creatinine [Mass/Vol] 1.37 mg/dL High 0.40-1.00 [facility] Comment on above: Result Comment: METH OD TRACEABLE TO IDMS STANDARD Performed By: #### C MP ####[facility] ([address] [address] VIR GFR/1.73 sq M.predicted among non-blacks MDRD (S/P/Bld) [Vol rate/Area] 40 mL/min/{1.73_m2} Low >=60 [facility] Comment on above: Result Comment: eGFR not reported due to non-numeric value for Creatinine.Reported eGFR is based on theCKD-EPI 2020 equation that doesnot use a race coefficient. Performed By: #### C MP ####[address] [address] VIR Glucose [Mass/Vol] 348 mg/dL High 65-99 [facility] Comment on above: Performed By: #### C MP ####[facility] ([address] [address] VIR Potassium [Moles/Vol] 4.1 mmol/L Normal 3.5-5.0 [facility] Comment on above: Performed By: #### C MP ####[address] [address] VIR Protein [Mass/Vol] 7.6 g/dL Normal 6.0-8.0 [facility] Comment on above: Performed By: #### C MP ####[facility] ([address] [address] VIR Sodium [Moles/Vol] 134 mmol/L Normal 134-146 [facility] Comment on above: Performed By: #### C MP ####[address] [address] VIR Urea nitrogen [Mass/Vol] 25 mg/dL Normal 5-27 [facility] Comment on above: Performed By: #### C MP ####[facility] ([address] [place] [address] LUMBAR SPINE WO CONTon CT LUMBAR SPINE WO CONT Normal [facility] POCT NURSING URINE MACROSCOP IC UAon 05-12-2025 BILIRUBIN MARYJO Negative Normal Negative [facility] Comment on above: Performed By: #### N UM ####[facility] ([address] [place] [address] VIR BLOOD/HGB MARYJO Negative Normal Negative [facility] Comment on above: Performed By: #### N UM ####[facility] ([address] [place] [address] VIR GLUCOSE MARYJO 500 mg/dL Abnormal Negative [facility] Comment on above: Performed By: #### N UM ####[facility] ([address] [place] [address] VIR KETONES MARYJO Negative Normal Negative [facility] Comment on above: Performed By: #### N UM ####[facility] ([address] [place] [address] VIR LEUKOCYTE ESTERASE MARYJO Negative Normal Negative [facility] Comment on above: Performed By: #### N UM ####[facility] ([address] [place] [address] VIR NITRITE MARYJO Negative Normal Negative [facility] Comment on above: Performed By: #### N UM ####[facility] ([address] [place] [address] VIR PH MARYJO 5.5 Normal 5.0, 6.0, 6.5, 7.0, 7.5, 8.0, 8.5, 5.5 [facility] Comment on above: Performed By: #### N UM ####[facility] ([address] [address] VIR PROTEIN MARYJO Negative Normal Negative [facility] Comment on above: Performed By: #### N UM ####[facility] ([facility])[address] [place] [address] VIR SPECIFIC GRAVITY MARYJO 1.015 Normal 1.010, 1.015, 1.020, 1.025 [facility] Comment on above: Performed By: #### N UM ####[facility] ([address] [address] VIR UROBILINOGEN MARYJO 0.2 E.U./dL Normal [facility] Comment on above: Performed By: #### N UM ####[facility] ([address] [address] VIR URINE CULTUREon 05-12-2025 Bacteria identified Cx Nom (U) CULTURE RESULTS NO GROWTH AT <1000 CFU/mL Normal [facility] Comment on above: Performed By: #### U C ####[facility] ([facility])[address] [address], [place] [address] VIR XR SPINE LUMBAR 2 OR 3 VWSon 05-11-2025 XR SPINE LUMBAR 2 OR 3 VWS Normal [facility] CBC WITH AUTO DIFFERENTIALon 04-28-2025 BASOPHILS ABSOLUTE COUNT (10*3/UL) BY AUTOMATED COUNT 0.1 10*3/uL Normal 0.0-0.2 [facility] Comment on above: Performed By: #### C BCA ####[facility] ([facility])[address] [place] [address] VIR BASOPHILS RELATIVE PERCENT BY AUTOMATED COUNT 0.9 % Normal [facility] Comment on above: Performed By: #### C BCA ####[facility] ([address] [address] VIR CELLAVISION DIFFERENTIAL TYPE AUTOMATED DIFFERENTIAL Normal [facility] Comment on above: Performed By: #### C BCA ####[facility] ([address] [place] [address] VIR Eosinophils (Bld) [#/Vol] 0.3 10*3/uL Normal 0.0-0.4 [facility] Comment on above: Performed By: #### C BCA ####[facility] ([address] [place] [address] VIR EOSINOPHILS RELATIVE PERCENT BY AUTOMATED COUNT 2.9 % Normal [facility] Comment on above: Performed By: #### C BCA ####[facility] ([address] [place] [address] VIR Erythrocyte distribution width (RBC) [Ratio] 15.3 % High 11.5-15 [facility] Comment on above: Performed By: #### C BCA ####[facility] ([address] [place] [address] VIR Hematocrit (Bld) [Volume fraction] 34.6 % Low 35-47 [facility] Comment on above: Performed By: #### C BCA ####[facility] ([address] [place] [address] VIR Hemoglobin (Bld) [Mass/Vol] 11.3 g/dL Low 11.7-15.5 [facility] Comment on above: Performed By: #### C BCA ####[facility] ([address] [place] [address] VIR LYMPHOCYTES ABSOLUTE COUNT (10*3/UL) BY AUTOMATED COUNT 1.6 10*3/uL Normal 1.0-3.5 [facility] Comment on above: Performed By: #### C BCA ####[facility] ([address] [place] [address] VIR LYMPHOCYTES RELATIVE PERCENT BY AUTOMATED COUNT 13.6 % Normal [facility] Comment on above: Performed By: #### C BCA ####[facility] ([address] [place] [address] VIR MCH (RBC) [Entitic mass] 27.6 pg Normal 27-34 [facility] Comment on above: Performed By: #### C BCA ####[facility] ([address] [address] VIR MCHC (RBC) [Mass/Vol] 32.7 g/dL Normal 32-36 [facility] Comment on above: Performed By: #### C BCA ####[facility] ([address] [address] VIR MCV (RBC) [Entitic vol] 84 fL Normal 80-100 [facility] Comment on above: Performed By: #### C BCA ####[facility] ([address] [address] VIR MONOCYTES ABSOLUTE COUNT (10*3/UL) BY AUTOMATED COUNT 0.7 10*3/uL Normal 0.0-0.9 [facility] Comment on above: Performed By: #### C BCA ####[facility] ([address] [address] VIR MONOCYTES RELATIVE PERCENT BY AUTOMATED COUNT 6.4 % Normal [facility] Comment on above: Performed By: #### C BCA ####[facility] ([address] [address] VIR NEUTROPHILS ABSOLUTE COUNT BY AUTOMATED COUNT 8.9 10*3/uL High 1.5-6.6 [facility] Comment on above: Performed By: #### C BCA ####[facility] ([address] [address] VIR NEUTROPHILS RELATIVE PERCENT BY AUTOMATED COUNT 76.2 % Normal [facility] Comment on above: Performed By: #### C BCA ####[facility] ([address] [place] [address] VIR Platelet mean volume (Bld) [Entitic vol] 8.0 fL Normal 7-12 [facility] Comment on above: Performed By: #### C BCA ####[facility] ([address] [place] [address] VIR Platelets (Bld) [#/Vol] 392 10*3/uL Normal 150-450 [facility] Comment on above: Performed By: #### C BCA ####[facility] ([address] [place] [address] VIR RBC COUNT 4.11 X10E12/L Normal 3.8-5.2 [facility] Comment on above: Performed By: #### C BCA ####[facility] ([address] [place] [address] VIR WBC (Bld) [#/Vol] 11.7 10*3/uL High 4-11 [facility] Comment on above: Performed By: #### C BCA ####[facility] ([address] [place] [address] VIR COMPREHENSIVE METABOLIC PANE Dickson 04-28-2025 Albumin [Mass/Vol] 3.6 g/dL Normal 3.2-5.3 [facility] Comment on above: Performed By: #### C MP ####[facility] ([address] [place] [address] VIR ALP [Catalytic activity/Vol] 154 U/L High 39-130 [facility] Comment on above: Performed By: #### C MP ####[facility] ([address] [place] [address] VIR ALT [Catalytic activity/Vol] 14 U/L Normal <=31 [facility] Comment on above: Performed By: #### C MP ####[facility] ([address] [place] [address] VIR Anion gap [Moles/Vol] 15 mmol/L Normal 5-15 [facility] Comment on above: Performed By: #### C MP ####[facility] ([address] [place] [address] VIR AST [Catalytic activity/Vol] 29 U/L Normal <=41 [facility] Comment on above: Performed By: #### C MP ####[facility] ([address] [place] [address] VIR Bilirubin [Mass/Vol] 0.9 mg/dL Normal 0.3-1.2 [facility] Comment on above: Performed By: #### C MP ####[facility] ([address] [place] [address] VIR Calcium [Mass/Vol] 9.7 mg/dL Normal 8.5-10.5 [facility] Comment on above: Performed By: #### C MP ####[facility] ([address] [place] [address] VIR Chloride [Moles/Vol] 92 mmol/L Low 98-109 [facility] Comment on above: Performed By: #### C MP ####[facility] ([address] [place] [address] VIR CO2 [Moles/Vol] 26 mmol/L Normal 22-32 [facility] Comment on above: Performed By: #### C MP ####[facility] ([address] [place] [address] VIR Creatinine [Mass/Vol] 1.47 mg/dL High 0.40-1.00 [facility] Comment on above: Result Comment: METH OD TRACEABLE TO IDMS STANDARD Performed By: #### C MP ####[facility] ([address] [address] VIR GFR/1.73 sq M.predicted among non-blacks MDRD (S/P/Bld) [Vol rate/Area] 36 mL/min/{1.73_m2} Low >=60 [facility] Comment on above: Result Comment: eGFR not reported due to non-numeric value for Creatinine.Reported eGFR is based on theCKD-EPI 2020 equation that doesnot use a race coefficient. Performed By: #### C MP ####[facility] ([address] [address] VIR Glucose [Mass/Vol] 271 mg/dL High 65-99 [facility] Comment on above: Performed By: #### C MP ####[facility] ([address] [address] VIR Potassium [Moles/Vol] 4.6 mmol/L Normal 3.5-5.0 [facility] Comment on above: Performed By: #### C MP ####[address] [address] VIR Protein [Mass/Vol] 8.4 g/dL High 6.0-8.0 [facility] Comment on above: Performed By: #### C MP ####[address] [address] VIR Sodium [Moles/Vol] 133 mmol/L Low 134-146 [facility] Comment on above: Performed By: #### C MP ####[address] [address] VIR Urea nitrogen [Mass/Vol] 17 mg/dL Normal 5-27 [facility] Comment on above: Performed By: #### C MP ####[address] BRAIN WO CONTon CT BRAIN WO CONT Normal [facility] POCT NURSING URINE MACROSCOP IC UAon 04-28-2025 BILIRUBIN MARYJO Small Abnormal Negative [facility] Comment on above: Performed By: #### N UM ####[facility] ([place] [address] [place] [address] VIR BLOOD/HGB MARYJO Trace Abnormal Negative [facility] Comment on above: Performed By: #### N UM ####[facility] ([address] [address] VIR GLUCOSE MARYJO Negative Normal Negative [facility] Comment on above: Performed By: #### N UM ####[facility] ([address] [address] VIR KETONES MARYJO 40 mg/dL Abnormal Negative [facility] Comment on above: Performed By: #### N UM ####[facility] ([address] [address] VIR LEUKOCYTE ESTERASE MARYJO Small Abnormal Negative [facility] Comment on above: Performed By: #### N UM ####[facility] ([address] [place] [address] VIR NITRITE MARYJO Positive Abnormal Negative [facility] Comment on above: Performed By: #### N UM ####[facility] ([address] [place] [address] VIR PH MARYJO 6.0 Normal 5.0, 6.0, 6.5, 7.0, 7.5, 8.0, 8.5, 5.5 [facility] Comment on above: Performed By: #### N UM ####[facility] ([address] [address] VIR PROTEIN MARYJO 100 mg/dL Abnormal Negative [facility] Comment on above: Performed By: #### N UM ####[facility] ([address] [address] VIR SPECIFIC GRAVITY MARYJO 1.025 Normal 1.010, 1.015, 1.020, 1.025 [facility] Comment on above: Performed By: #### N UM ####[facility] ([facility])[address] [place] [address] VIR UROBILINOGEN MARYJO 0.2 E.U./dL Normal [facility] Comment on above: Performed By: #### N UM ####[facility] ([facility])[address] [place] [address] [place] [address] VIR URINE CULTUREon 04-28-2025 Bacteria identified Cx Nom (U) Susceptible [facility] Comment on above: Performed By: #### U C ####[facility] ([facility])[address] [address] VIR XR CHEST 1 VWon 04-28-2025 XR CHEST 1 VW Normal [facility] Telemedicineon 04-05-2025 Telemedicine [id number] Jb Dee 1945 F Date Provider Department Center 04/05/2025 [facility] Family History Problem Relation Age of Onset Diabetes Mother Hypertension Father Coronary artery disease Father Family Status - Relation Status Age at Mother Father Level of Service:88992 MO OFFICE/OUTPATIENT ESTABLISHED LOW MDM 20 MIN Reason for Visit and Comments: Follow-up [411848] - No longer on IV Antibiotics or oral and doing well. MRSA [[id number]] Normal [facility] 36on 04-04-2025 36 Labs are in chart Normal [facility] BASIC METABOLIC PANELon 03-16 Anion gap [Moles/Vol] 13 mmol/L Normal 5-15 [facility] Comment on above: Performed By: #### B MP ####[facility] ([facility])[address] [address] VIR Calcium [Mass/Vol] 9.9 mg/dL Normal 8.5-10.5 [facility] Comment on above: Performed By: #### B MP ####[facility] ([facility])[address], [place] [address] VIR Chloride [Moles/Vol] 98 mmol/L Normal 98-109 [facility] Comment on above: Performed By: #### B MP ####[facility] ([facility])[address], [place] [address] VIR CO2 [Moles/Vol] 25 mmol/L Normal 22-32 [facility] Comment on above: Performed By: #### B MP ####[facility] ([facility])[address] [facility] [address], [place] [address] VIR Creatinine [Mass/Vol] 1.30 mg/dL High 0.40-1.00 [facility] Comment on above: Result Comment: METH OD TRACEABLE TO IDMS STANDARD Performed By: #### B MP ####[facility] ([facility])[address] [facility] [address], [place] [address] VIR GFR/1.73 sq M.predicted among non-blacks MDRD (S/P/Bld) [Vol rate/Area] 42 mL/min/{1.73_m2} Low >=60 [facility] Comment on above: Result Comment: Repo rted eGFR is based on theCKD-EPI 2020 equation that doesnot use a race coefficient. Performed By: #### B MP ####[facility] ([facility])[address], [place] [address] VIR Glucose [Mass/Vol] 227 mg/dL High 65-99 [facility] Comment on above: Performed By: #### B MP ####[facility] ([facility])[address], [place] [address] VIR Potassium [Moles/Vol] 4.2 mmol/L Normal 3.5-5.0 [facility] Comment on above: Performed By: #### B MP ####[facility] ([facility])[address], [place] [address] VIR Sodium [Moles/Vol] 136 mmol/L Normal 134-146 [facility] Comment on above: Performed By: #### B MP ####[facility] ([facility])[address] [address] VIR Urea nitrogen [Mass/Vol] 17 mg/dL Normal 5-27 [facility] Comment on above: Performed By: #### B MP ####[facility] ([facility])[address] [facility] [address], [place] [address] VIR CBC WITH AUTO DIFFERENTIALon 04-03-2025 BASOPHILS ABSOLUTE COUNT (10*3/UL) BY AUTOMATED COUNT 0.1 10*3/uL Normal 0.0-0.2 [facility] Comment on above: Order Comment: Abnor mal CBC with auto diff reflexes to a manual diff Result Comment: This is an appended report. These results have been appended to a previously preliminary verified report. Performed By: #### C BCA ####[facility] ([facility])[address] [address] VIR BASOPHILS RELATIVE PERCENT BY AUTOMATED COUNT 0.8 % Normal [facility] Comment on above: Order Comment: Abnor mal CBC with auto diff reflexes to a manual diff Result Comment: This is an appended report. These results have been appended to a previously preliminary verified report. Performed By: #### C BCA ####[facility] ([facility])[address] [address] VIR CELLAVISION DIFFERENTIAL TYPE AUTOMATED DIFFERENTIAL Normal [facility] Comment on above: Order Comment: Abnor mal CBC with auto diff reflexes to a manual diff Result Comment: This is an appended report. These results have been appended to a previously preliminary verified report. Performed By: #### C BCA ####[facility] ([facility])[address] [address] VIR Eosinophils (Bld) [#/Vol] 0.4 10*3/uL Normal 0.0-0.4 [facility] Comment on above: Order Comment: Abnor mal CBC with auto diff reflexes to a manual diff Result Comment: This is an appended report. These results have been appended to a previously preliminary verified report. Performed By: #### C BCA ####[facility] ([facility])[address] [facility] [address], [place] [address] VIR EOSINOPHILS RELATIVE PERCENT BY AUTOMATED COUNT 4.5 % Normal [facility] Comment on above: Order Comment: Abnor mal CBC with auto diff reflexes to a manual diff Result Comment: This is an appended report. These results have been appended to a previously preliminary verified report. Performed By: #### C BCA ####[facility] ([facility])[address] [facility] [address], [place] [address] VIR Erythrocyte distribution width (RBC) [Ratio] 15.9 % High 11.5-15 [facility] Comment on above: Order Comment: Abnor mal CBC with auto diff reflexes to a manual diff Performed By: #### C BCA ####[facility] ([facility])[address] [facility] [address], [place] [address] VIR Hematocrit (Bld) [Volume fraction] 32.9 % Low 35-47 [facility] Comment on above: Order Comment: Abnor mal CBC with auto diff reflexes to a manual diff Performed By: #### C BCA ####[facility] ([facility])[address] [facility] [address], [place] [address] VIR Hemoglobin (Bld) [Mass/Vol] 10.9 g/dL Low 11.7-15.5 [facility] Comment on above: Order Comment: Abnor mal CBC with auto diff reflexes to a manual diff Performed By: #### C BCA ####[facility] ([facility])[address] [facility] [address], [place] [address] VIR LYMPHOCYTES ABSOLUTE COUNT (10*3/UL) BY AUTOMATED COUNT 1.4 10*3/uL Normal 1.0-3.5 [facility] Comment on above: Order Comment: Abnor mal CBC with auto diff reflexes to a manual diff Result Comment: This is an appended report. These results have been appended to a previously preliminary verified report. Performed By: #### C BCA ####[facility] ([facility])[address], [place] [address] VIR LYMPHOCYTES RELATIVE PERCENT BY AUTOMATED COUNT 17.6 % Normal [facility] Comment on above: Order Comment: Abnor mal CBC with auto diff reflexes to a manual diff Result Comment: This is an appended report. These results have been appended to a previously preliminary verified report. Performed By: #### C BCA ####[facility] ([facility])[address] [facility] [address], [place] [address] VIR MCH (RBC) [Entitic mass] 27.6 pg Normal 27-34 [facility] Comment on above: Order Comment: Abnor mal CBC with auto diff reflexes to a manual diff Performed By: #### C BCA ####[facility] ([facility])[address], [place] [address] VIR MCHC (RBC) [Mass/Vol] 33.2 g/dL Normal 32-36 [facility] Comment on above: Order Comment: Abnor mal CBC with auto diff reflexes to a manual diff Performed By: #### C BCA ####[facility] ([facility])[address], [place] [address] VIR MCV (RBC) [Entitic vol] 83 fL Normal 80-100 [facility] Comment on above: Order Comment: Abnor mal CBC with auto diff reflexes to a manual diff Performed By: #### C BCA ####[facility] ([facility])[address] [facility] [address], [place] [address] VIR MONOCYTES ABSOLUTE COUNT (10*3/UL) BY AUTOMATED COUNT 0.6 10*3/uL Normal 0.0-0.9 [facility] Comment on above: Order Comment: Abnor mal CBC with auto diff reflexes to a manual diff Result Comment: This is an appended report. These results have been appended to a previously preliminary verified report. Performed By: #### C BCA ####[facility] ([facility])[address], [place] [address] VIR MONOCYTES RELATIVE PERCENT BY AUTOMATED COUNT 7.9 % Normal [facility] Comment on above: Order Comment: Abnor mal CBC with auto diff reflexes to a manual diff Result Comment: This is an appended report. These results have been appended to a previously preliminary verified report. Performed By: #### C BCA ####[facility] ([facility])[address], [place] [address] VIR NEUTROPHILS ABSOLUTE COUNT BY AUTOMATED COUNT 5.6 10*3/uL Normal 1.5-6.6 [facility] Comment on above: Order Comment: Abnor mal CBC with auto diff reflexes to a manual diff Result Comment: This is an appended report. These results have been appended to a previously preliminary verified report. Performed By: #### C BCA ####[facility] ([facility])[address] [facility] [address], [place] [address] VIR NEUTROPHILS RELATIVE PERCENT BY AUTOMATED COUNT 69.2 % Normal [facility] Comment on above: Order Comment: Abnor mal CBC with auto diff reflexes to a manual diff Result Comment: This is an appended report. These results have been appended to a previously preliminary verified report. Performed By: #### C BCA ####[facility] ([facility])[address], [place] [address] VIR Platelet mean volume (Bld) [Entitic vol] 8.8 fL Normal 7-12 [facility] Comment on above: Order Comment: Abnor mal CBC with auto diff reflexes to a manual diff Performed By: #### C BCA ####[facility] ([facility])[address], [place] [address] VIR Platelets (Bld) [#/Vol] 314 10*3/uL Normal 150-450 [facility] Comment on above: Order Comment: Abnor mal CBC with auto diff reflexes to a manual diff Performed By: #### C BCA ####[facility] ([facility])[address], [place] [address] VIR RBC COUNT 3.96 X10E12/L Normal 3.8-5.2 [facility] Comment on above: Order Comment: Abnor mal CBC with auto diff reflexes to a manual diff Performed By: #### C BCA ####[facility] ([facility])[address], [place] [address] VIR WBC (Bld) [#/Vol] 8.0 10*3/uL Normal 4-11 [facility] Comment on above: Order Comment: Abnor mal CBC with auto diff reflexes to a manual diff Performed By: #### C BCA ####[facility] ([facility])[address], [place] [address] VIR CK TOTALon 04-03-2025 CPK 246 U/L High 24-170 [facility] Comment on above: Performed By: #### C PK ####[facility] ([facility])[address], [place] [address] VIR 36on 03-28-2025 36 Follow up call made to get pt scheduled for follow up appt, VM was left on Pts daughter phone. Normal [facility] 36 Labs are in Chart Normal [facility] BASIC METABOLIC PANELon 03-15 Anion gap [Moles/Vol] 9 mmol/L Normal 5-15 [facility] Comment on above: Performed By: #### B MP ####[facility] ([facility])[address], [place] [address] VIR Calcium [Mass/Vol] 9.2 mg/dL Normal 8.5-10.5 [facility] Comment on above: Performed By: #### B MP ####[facility] ([facility])[address], [place] [address] VIR Chloride [Moles/Vol] 96 mmol/L Low 98-109 [facility] Comment on above: Performed By: #### B MP ####[facility] ([facility])[address], [place] [address] VIR CO2 [Moles/Vol] 31 mmol/L Normal 22-32 [facility] Comment on above: Performed By: #### B MP ####[facility] ([facility])[address], [place] [address] VIR Creatinine [Mass/Vol] 1.58 mg/dL High 0.40-1.00 [facility] Comment on above: Result Comment: METH OD TRACEABLE TO IDMS STANDARD Performed By: #### B MP ####[facility] ([facility])[address] [facility] [address], [place] [address] VIR GFR/1.73 sq M.predicted among non-blacks MDRD (S/P/Bld) [Vol rate/Area] 33 mL/min/{1.73_m2} Low >=60 [facility] Comment on above: Result Comment: Repo rted eGFR is based on theCKD-EPI 2020 equation that doesnot use a race coefficient. Performed By: #### B MP ####[facility] ([facility])[address], [place] [address] VIR Glucose [Mass/Vol] 328 mg/dL High 65-99 [facility] Comment on above: Performed By: #### B MP ####[facility] ([facility])[address], [place] [address] VIR Potassium [Moles/Vol] 4.2 mmol/L Normal 3.5-5.0 [facility] Comment on above: Performed By: #### B MP ####[facility] ([facility])[address], [place] [address] VIR Sodium [Moles/Vol] 136 mmol/L Normal 134-146 [facility] Comment on above: Performed By: #### B MP ####[facility] ([facility])[address], [place] [address] VIR Urea nitrogen [Mass/Vol] 22 mg/dL Normal 5-27 [facility] Comment on above: Performed By: #### B MP ####[facility] ([facility])[address] [address] VIR Basic metabolic panelon 03-15 Anion gap [Moles/Vol] 9 mmol/L 5 - 15 mmol/L [facility] Calcium [Mass/Vol] 9.2 mg/dL 8.5 - 10.5 mg/dL [facility] Chloride [Moles/Vol] 96 mmol/L Low 98 - 109 mmol/L [facility] CO2 [Moles/Vol] 31 mmol/L 22 - 32 mmol/L [facility] Creatinine [Mass/Vol] 1.58 mg/dL High 0.40 - 1.00 mg/dL [facility] Comment on above: METHOD TRACEABLE TO IDMS STANDARD EGFR Non-Race Dependent 33 Low - PINF [facility] Comment on above: Reported eGFR is bas ed on the CKD-EPI 2020 equation that does not use a race coefficient. Glucose [Mass/Vol] 328 mg/dL High 65 - 99 mg/dL [facility] Potassium [Moles/Vol] 4.2 mmol/L 3.5 - 5.0 mmol/L [facility] Sodium [Moles/Vol] 136 mmol/L 134 - 146 mmol/L [facility] Urea nitrogen [Mass/Vol] 22 mg/dL 5 - 27 mg/dL [facility] CBC WITH AUTO DIFFERENTIALon 03-26-2025 CELLAVISION DIFFERENTIAL TYPE MANUAL DIFFERENTIAL Normal [facility] Comment on above: Order Comment: Abnor mal CBC with auto diff reflexes to a manual diff Result Comment: This is an appended report. These results have been appended to a previously preliminary verified report. Performed By: #### C BCA ####[facility] ([facility])[address] [address] [address] VIR CELLAVISION ELLIPTOCYTES IN BLOOD BY LIGHT MICROSCOPY 1+ Normal [facility] Comment on above: Order Comment: Abnor mal CBC with auto diff reflexes to a manual diff Result Comment: This is an appended report. These results have been appended to a previously preliminary verified report. Performed By: #### C BCA ####[facility] ([facility])[address], [place] [address] VIR CELLAVISION EOSINOPHILS ABSOLUTE COUNT (10*3/UL) BY MANUAL COUNT 0.5 10*3/uL High 0.0-0.4 [facility] Comment on above: Order Comment: Abnor mal CBC with auto diff reflexes to a manual diff Result Comment: This is an appended report. These results have been appended to a previously preliminary verified report. Performed By: #### C BCA ####[facility] ([facility])[address], [place] [address] VIR CELLAVISION EOSINOPHILS PERCENT BY MANUAL COUNT 7 % Normal [facility] Comment on above: Order Comment: Abnor mal CBC with auto diff reflexes to a manual diff Result Comment: This is an appended report. These results have been appended to a previously preliminary verified report. Performed By: #### C BCA ####[facility] ([facility])[address], [place] [address] VIR CELLAVISION LYMPHOCYTES ABSOLUTE COUNT (10*3/UL) BY MANUAL COUNT 0.9 10*3/uL Low 1.0-3.5 [facility] Comment on above: Order Comment: Abnor mal CBC with auto diff reflexes to a manual diff Result Comment: This is an appended report. These results have been appended to a previously preliminary verified report. Performed By: #### C BCA ####[facility] ([facility])[address], [place] [address] VIR CELLAVISION LYMPHOCYTES RELATIVE PERCENT BY MANUAL COUNT 12 % Normal [facility] Comment on above: Order Comment: Abnor mal CBC with auto diff reflexes to a manual diff Result Comment: This is an appended report. These results have been appended to a previously preliminary verified report. Performed By: #### C BCA ####[facility] ([facility])[address], [place] [address] VIR CELLAVISION MONOCYTES ABSOLUTE COUNT (10*3/UL) IN BLOOD BY MANUAL COUNT 0.4 10*3/uL Normal 0.0-0.9 [facility] Comment on above: Order Comment: Abnor mal CBC with auto diff reflexes to a manual diff Result Comment: This is an appended report. These results have been appended to a previously preliminary verified report. Performed By: #### C BCA ####[facility] ([facility])[address], [place] [address] VIR CELLAVISION MONOCYTES RELATIVE PERCENT BY MANUAL COUNT 5 % Normal [facility] Comment on above: Order Comment: Abnor mal CBC with auto diff reflexes to a manual diff Result Comment: This is an appended report. These results have been appended to a previously preliminary verified report. Performed By: #### C BCA ####[facility] ([facility])[address] [facility] [address], [place] [address] VIR CELLAVISION NEUTROPHILS ABSOLUTE COUNT BY MANUAL COUNT 5.5 10*3/uL Normal 1.5-6.6 [facility] Comment on above: Order Comment: Abnor mal CBC with auto diff reflexes to a manual diff Result Comment: This is an appended report. These results have been appended to a previously preliminary verified report. Performed By: #### C BCA ####[facility] ([facility])[address] [facility] [address], [place] [address] VIR CELLAVISION NEUTROPHILS RELATIVE PERCENT BY MANUAL COUNT 76 % Normal [facility] Comment on above: Order Comment: Abnor mal CBC with auto diff reflexes to a manual diff Result Comment: This is an appended report. These results have been appended to a previously preliminary verified report. Performed By: #### C BCA ####[facility] ([facility])[address] [facility] [address], [place] [address] VIR Erythrocyte distribution width (RBC) [Ratio] 16.8 % High 11.5-15 [facility] Comment on above: Order Comment: Abnor mal CBC with auto diff reflexes to a manual diff Performed By: #### C BCA ####[facility] ([facility])[address], [place] [address] VIR Hematocrit (Bld) [Volume fraction] 28.9 % Low 35-47 [facility] Comment on above: Order Comment: Abnor mal CBC with auto diff reflexes to a manual diff Performed By: #### C BCA ####[facility] ([facility])[address], [place] [address] VIR Hemoglobin (Bld) [Mass/Vol] 9.5 g/dL Low 11.7-15.5 [facility] Comment on above: Order Comment: Abnor mal CBC with auto diff reflexes to a manual diff Performed By: #### C BCA ####[facility] ([facility])[address], [place] [address] VIR MCH (RBC) [Entitic mass] 27.7 pg Normal 27-34 [facility] Comment on above: Order Comment: Abnor mal CBC with auto diff reflexes to a manual diff Performed By: #### C BCA ####[facility] ([facility])[address], [place] [address] VIR MCHC (RBC) [Mass/Vol] 32.9 g/dL Normal 32-36 [facility] Comment on above: Order Comment: Abnor mal CBC with auto diff reflexes to a manual diff Performed By: #### C BCA ####[facility] ([facility])[address], [place] [address] VIR MCV (RBC) [Entitic vol] 84 fL Normal 80-100 [facility] Comment on above: Order Comment: Abnor mal CBC with auto diff reflexes to a manual diff Performed By: #### C BCA ####[facility] ([facility])[address], [place] [address] VIR Platelet mean volume (Bld) [Entitic vol] 9.1 fL Normal 7-12 [facility] Comment on above: Order Comment: Abnor mal CBC with auto diff reflexes to a manual diff Performed By: #### C BCA ####[facility] ([facility])[address] [facility] [address], [place] [address] VIR Platelets (Bld) [#/Vol] 233 10*3/uL Normal 150-450 [facility] Comment on above: Order Comment: Abnor mal CBC with auto diff reflexes to a manual diff Performed By: #### C BCA ####[facility] ([facility])[address] [facility] [address], [place] [address] VIR RBC COUNT 3.43 X10E12/L Low 3.8-5.2 [facility] Comment on above: Order Comment: Abnor mal CBC with auto diff reflexes to a manual diff Performed By: #### C BCA ####[facility] ([facility])[address] [address] VIR WBC (Bld) [#/Vol] 7.3 10*3/uL Normal 4-11 [facility] Comment on above: Order Comment: Abnor mal CBC with auto diff reflexes to a manual diff Performed By: #### C BCA ####[facility] ([facility])[address] [facility] [address], [place] [address] VIR CK TOTALon 03-26-2025 CPK 265 U/L High 24-170 [facility] Comment on above: Performed By: #### C PK ####[facility] ([facility])[address] [address] VIR CK Totalon 03-26-2025 CK [Catalytic activity/Vol] 265 U/L High 24 - 170 U/L [facility] No Panel Informationon 03-26 Interpretation and review of laboratory results Abnormal [facility] CT LUMBAR SPINE WO CONTon CT LUMBAR SPINE WO CONT Normal [facility] 36on 03-21-2025 36 Labs are in [facility] Normal [facility] BASIC METABOLIC PANELon 05-0 Anion gap [Moles/Vol] 11 mmol/L Normal 5-15 [facility] Comment on above: Performed By: #### B MP ####[facility] ([facility])[address], [place] [address] VIR Calcium [Mass/Vol] 9.4 mg/dL Normal 8.5-10.5 [facility] Comment on above: Performed By: #### B MP ####[facility] ([facility])[address], [place] [address] VIR Chloride [Moles/Vol] 99 mmol/L Normal 98-109 [facility] Comment on above: Performed By: #### B MP ####[facility] ([facility])[address], [place] [address] VIR CO2 [Moles/Vol] 28 mmol/L Normal 22-32 [facility] Comment on above: Performed By: #### B MP ####[facility] ([facility])[address], [place] [address] VIR Creatinine [Mass/Vol] 1.83 mg/dL High 0.40-1.00 [facility] Comment on above: Result Comment: METH OD TRACEABLE TO IDMS STANDARD Performed By: #### B MP ####[facility] ([facility])[address], [place] [address] VIR GFR/1.73 sq M.predicted among non-blacks MDRD (S/P/Bld) [Vol rate/Area] 28 mL/min/{1.73_m2} Low >=60 [facility] Comment on above: Result Comment: Repo rted eGFR is based on theCKD-EPI 2020 equation that doesnot use a race coefficient. Performed By: #### B MP ####[facility] ([facility])[address], [place] [address] VIR Glucose [Mass/Vol] 286 mg/dL High 65-99 [facility] Comment on above: Performed By: #### B MP ####[facility] ([facility])[address], [place] [address] VIR Potassium [Moles/Vol] 4.4 mmol/L Normal 3.5-5.0 [facility] Comment on above: Performed By: #### B MP ####[facility] ([facility])[address], [place] [address] VIR Sodium [Moles/Vol] 138 mmol/L Normal 134-146 [facility] Comment on above: Performed By: #### B MP ####[facility] ([facility])[address], [place] [address] VIR Urea nitrogen [Mass/Vol] 33 mg/dL High 5-27 [facility] Comment on above: Performed By: #### B MP ####[facility] ([facility])[address], [place] [address] VIR CBC WITH AUTO DIFFERENTIALon 03-20-2025 CELLAVISION DIFFERENTIAL TYPE MANUAL DIFFERENTIAL Normal [facility] Comment on above: Order Comment: Abnor mal CBC with auto diff reflexes to a manual diff Result Comment: This is an appended report. These results have been appended to a previously preliminary verified report. Performed By: #### C BCA ####[facility] ([facility])[address], [place] [address] VIR CELLAVISION ELLIPTOCYTES IN BLOOD BY LIGHT MICROSCOPY 1+ Normal [facility] Comment on above: Order Comment: Abnor mal CBC with auto diff reflexes to a manual diff Result Comment: This is an appended report. These results have been appended to a previously preliminary verified report. Performed By: #### C BCA ####[facility] ([facility])[address], [place] [address] VIR CELLAVISION EOSINOPHILS ABSOLUTE COUNT (10*3/UL) BY MANUAL COUNT 0.4 10*3/uL Normal [facility] Comment on above: Order Comment: Abnor mal CBC with auto diff reflexes to a manual diff Result Comment: This is an appended report. These results have been appended to a previously preliminary verified report. Performed By: #### C BCA ####[facility] ([facility])[address], [place] [address] VIR CELLAVISION EOSINOPHILS PERCENT BY MANUAL COUNT 7 % Normal [facility] Comment on above: Order Comment: Abnor mal CBC with auto diff reflexes to a manual diff Result Comment: This is an appended report. These results have been appended to a previously preliminary verified report. Performed By: #### C BCA ####[facility] ([facility])[address], [place] [address] VIR CELLAVISION LYMPHOCYTES ABSOLUTE COUNT (10*3/UL) BY MANUAL COUNT 1.7 10*3/uL Normal [facility] Comment on above: Order Comment: Abnor mal CBC with auto diff reflexes to a manual diff Result Comment: This is an appended report. These results have been appended to a previously preliminary verified report. Performed By: #### C BCA ####[facility] ([facility])[address], [place] [address] VIR CELLAVISION LYMPHOCYTES RELATIVE PERCENT BY MANUAL COUNT 28 % Normal [facility] Comment on above: Order Comment: Abnor mal CBC with auto diff reflexes to a manual diff Result Comment: This is an appended report. These results have been appended to a previously preliminary verified report. Performed By: #### C BCA ####[facility] ([facility])[address], [place] [address] VIR CELLAVISION MONOCYTES ABSOLUTE COUNT (10*3/UL) IN BLOOD BY MANUAL COUNT 0.2 10*3/uL Normal [facility] Comment on above: Order Comment: Abnor mal CBC with auto diff reflexes to a manual diff Result Comment: This is an appended report. These results have been appended to a previously preliminary verified report. Performed By: #### C BCA ####[facility] ([facility])[address], [place] [address] VIR CELLAVISION MONOCYTES RELATIVE PERCENT BY MANUAL COUNT 4 % Normal [facility] Comment on above: Order Comment: Abnor mal CBC with auto diff reflexes to a manual diff Result Comment: This is an appended report. These results have been appended to a previously preliminary verified report. Performed By: #### C BCA ####[facility] ([facility])[address], [place] [address] VIR CELLAVISION NEUTROPHILS ABSOLUTE COUNT BY MANUAL COUNT 3.9 10*3/uL Normal [facility] Comment on above: Order Comment: Abnor mal CBC with auto diff reflexes to a manual diff Result Comment: This is an appended report. These results have been appended to a previously preliminary verified report. Performed By: #### C BCA ####[facility] ([facility])[address] [facility] [address], [place] [address] VIR CELLAVISION NEUTROPHILS RELATIVE PERCENT BY MANUAL COUNT 61 % Normal [facility] Comment on above: Order Comment: Abnor mal CBC with auto diff reflexes to a manual diff Result Comment: This is an appended report. These results have been appended to a previously preliminary verified report. Performed By: #### C BCA ####[facility] ([facility])[address] [facility] [address], [place] [address] VIR Erythrocyte distribution width (RBC) [Ratio] 17.9 % High 11.5-15 [facility] Comment on above: Order Comment: Abnor mal CBC with auto diff reflexes to a manual diff Performed By: #### C BCA ####[facility] ([facility])[address], [place] [address] VIR Hematocrit (Bld) [Volume fraction] 30.5 % Low 35-47 [facility] Comment on above: Order Comment: Abnor mal CBC with auto diff reflexes to a manual diff Performed By: #### C BCA ####[facility] ([facility])[address], [place] [address] VIR Hemoglobin (Bld) [Mass/Vol] 10.0 g/dL Low 11.7-15.5 [facility] Comment on above: Order Comment: Abnor mal CBC with auto diff reflexes to a manual diff Performed By: #### C BCA ####[facility] ([facility])[address], [place] [address] VIR MCH (RBC) [Entitic mass] 28.5 pg Normal 27-34 [facility] Comment on above: Order Comment: Abnor mal CBC with auto diff reflexes to a manual diff Performed By: #### C BCA ####[facility] ([facility])[address], [place] [address] VIR MCHC (RBC) [Mass/Vol] 33.0 g/dL Normal 32-36 [facility] Comment on above: Order Comment: Abnor mal CBC with auto diff reflexes to a manual diff Performed By: #### C BCA ####[facility] ([facility])[address], [place] [address] VIR MCV (RBC) [Entitic vol] 86 fL Normal 80-100 [facility] Comment on above: Order Comment: Abnor mal CBC with auto diff reflexes to a manual diff Performed By: #### C BCA ####[facility] ([facility])[address], [place] [address] VIR Platelet mean volume (Bld) [Entitic vol] 9.2 fL Normal 7-12 [facility] Comment on above: Order Comment: Abnor mal CBC with auto diff reflexes to a manual diff Performed By: #### C BCA ####[facility] ([facility])[address], [place] [address] VIR Platelets (Bld) [#/Vol] 261 10*3/uL Normal 150-450 [facility] Comment on above: Order Comment: Abnor mal CBC with auto diff reflexes to a manual diff Performed By: #### C BCA ####[facility] ([facility])[address], [place] [address] VIR RBC COUNT 3.52 X10E12/L Low 3.8-5.2 [facility] Comment on above: Order Comment: Abnor mal CBC with auto diff reflexes to a manual diff Performed By: #### C BCA ####[facility] ([facility])[address], [place] [address] VIR WBC (Bld) [#/Vol] 6.2 10*3/uL Normal 4-11 [facility] Comment on above: Order Comment: Abnor mal CBC with auto diff reflexes to a manual diff Performed By: #### C BCA ####[facility] ([facility])[address], [place] [address] VIR CBC WITH AUTO DIFFERENTIALon 03-19-2025 BASOPHILS ABSOLUTE COUNT (10*3/UL) BY AUTOMATED COUNT 0.1 10*3/uL Normal [facility] Comment on above: Performed By: #### C BCA ####[facility] ([facility])[address] [place] [address] [place] [address] VIR BASOPHILS RELATIVE PERCENT BY AUTOMATED COUNT 1.3 % Normal [facility] Comment on above: Performed By: #### C BCA ####[facility] ([facility])[address] [place] [address] [place] [address] VIR CELLAVISION DIFFERENTIAL TYPE AUTOMATED DIFFERENTIAL Normal [facility] Comment on above: Performed By: #### C BCA ####[facility] ([facility])[address] [address] VIR Eosinophils (Bld) [#/Vol] 0.6 10*3/uL Normal [facility] Comment on above: Performed By: #### C BCA ####[facility] ([facility])[address] [place] [address] [place] [address] VIR EOSINOPHILS RELATIVE PERCENT BY AUTOMATED COUNT 6.9 % Normal [facility] Comment on above: Performed By: #### C BCA ####[facility] ([facility])[address] [place] [address] [place] [address] VIR Erythrocyte distribution width (RBC) [Ratio] 17.5 % High 11.5-15 [facility] Comment on above: Performed By: #### C BCA ####[facility] ([address] [address] VIR Hematocrit (Bld) [Volume fraction] 27.7 % Low 35-47 [facility] Comment on above: Performed By: #### C BCA ####[facility] ([address] [address] VIR Hemoglobin (Bld) [Mass/Vol] 9.3 g/dL Low 11.7-15.5 [facility] Comment on above: Performed By: #### C BCA ####[facility] ([address] [address] VIR LYMPHOCYTES ABSOLUTE COUNT (10*3/UL) BY AUTOMATED COUNT 2.5 10*3/uL Normal [facility] Comment on above: Performed By: #### C BCA ####[facility] ([address] [address] VIR LYMPHOCYTES RELATIVE PERCENT BY AUTOMATED COUNT 29.1 % Normal [facility] Comment on above: Performed By: #### C BCA ####[facility] ([address] [address] VIR MCH (RBC) [Entitic mass] 28.9 pg Normal 27-34 [facility] Comment on above: Performed By: #### C BCA ####[facility] ([address] [address] VIR MCHC (RBC) [Mass/Vol] 33.7 g/dL Normal 32-36 [facility] Comment on above: Performed By: #### C BCA ####[facility] ([address] [address] VIR MCV (RBC) [Entitic vol] 86 fL Normal 80-100 [facility] Comment on above: Performed By: #### C BCA ####[facility] ([address] [place] [address] VIR MONOCYTES ABSOLUTE COUNT (10*3/UL) BY AUTOMATED COUNT 0.9 10*3/uL Normal [facility] Comment on above: Performed By: #### C BCA ####[facility] ([address] [place] [address] VIR MONOCYTES RELATIVE PERCENT BY AUTOMATED COUNT 10.6 % Normal [facility] Comment on above: Performed By: #### C BCA ####[facility] ([address] [place] [address] VIR NEUTROPHILS ABSOLUTE COUNT BY AUTOMATED COUNT 4.4 10*3/uL Normal [facility] Comment on above: Performed By: #### C BCA ####[facility] ([address] [place] [address] VIR NEUTROPHILS RELATIVE PERCENT BY AUTOMATED COUNT 52.1 % Normal [facility] Comment on above: Performed By: #### C BCA ####[facility] ([address] [address] VIR Platelet mean volume (Bld) [Entitic vol] 8.8 fL Normal 7-12 [facility] Comment on above: Performed By: #### C BCA ####[facility] ([address] [place] [address] VIR Platelets (Bld) [#/Vol] 274 10*3/uL Normal 150-450 [facility] Comment on above: Performed By: #### C BCA ####[facility] ([address] [place] [address] VIR RBC COUNT 3.22 X10E12/L Low 3.8-5.2 [facility] Comment on above: Performed By: #### C BCA ####[facility] ([address] [place] [address] VIR WBC (Bld) [#/Vol] 8.5 10*3/uL Normal 4-11 [facility] Comment on above: Performed By: #### C BCA ####[facility] ([place] [address] [place] [address] VIR COMPREHENSIVE METABOLIC PANE Dickson 03-19-2025 Albumin [Mass/Vol] 3.3 g/dL Normal 3.2-5.3 [facility] Comment on above: Performed By: #### C MP ####[facility] ([place] [address] [place] [address] VIR ALP [Catalytic activity/Vol] 107 U/L Normal 39-130 [facility] Comment on above: Performed By: #### C MP ####[facility] ([address] [address] VIR ALT [Catalytic activity/Vol] 17 U/L Normal <=31 [facility] Comment on above: Performed By: #### C MP ####[facility] ([address] [place] [address] VIR Anion gap [Moles/Vol] 10 mmol/L Normal 5-15 [facility] Comment on above: Performed By: #### C MP ####[facility] ([place] [address] [place] [address] VIR AST [Catalytic activity/Vol] 30 U/L Normal <=41 [facility] Comment on above: Performed By: #### C MP ####[place] [facility] ([place] [address] [place] [address] VIR Bilirubin [Mass/Vol] 0.4 mg/dL Normal 0.3-1.2 [facility] Comment on above: Performed By: #### C MP ####[facility] ([place] [address] [place] [address] VIR Calcium [Mass/Vol] 8.9 mg/dL Normal 8.5-10.5 [facility] Comment on above: Performed By: #### C MP ####[facility] ([address] [place] [address] VIR Chloride [Moles/Vol] 101 mmol/L Normal 98-109 [facility] Comment on above: Performed By: #### C MP ####[facility] ([address] [place] [address] VIR CO2 [Moles/Vol] 26 mmol/L Normal 22-32 [facility] Comment on above: Performed By: #### C MP ####[facility] ([address] [place] [address] VIR Creatinine [Mass/Vol] 1.83 mg/dL High 0.40-1.00 [facility] Comment on above: Result Comment: METH OD TRACEABLE TO IDMS STANDARD Performed By: #### C MP ####[facility] ([address] [place] [address] VIR GFR/1.73 sq M.predicted among non-blacks MDRD (S/P/Bld) [Vol rate/Area] 28 mL/min/{1.73_m2} Low >=60 [facility] Comment on above: Result Comment: eGFR not reported due to non-numeric value for Creatinine.Reported eGFR is based on theCKD-EPI 1 equation that doesnot use a race coefficient. Performed By: #### C MP ####[facility] ([address] [place] [address] VIR Glucose [Mass/Vol] 152 mg/dL High 65-99 [facility] Comment on above: Performed By: #### C MP ####[facility] ([address] [place] [address] VIR Potassium [Moles/Vol] 4.3 mmol/L Normal 3.5-5.0 [facility] Comment on above: Performed By: #### C MP ####[facility] ([address] [place] [address] VIR Protein [Mass/Vol] 7.2 g/dL Normal 6.0-8.0 [facility] Comment on above: Performed By: #### C MP ####[facility] ([address] [place] [address] VIR Sodium [Moles/Vol] 137 mmol/L Normal 134-146 [facility] Comment on above: Performed By: #### C MP ####[facility] ([address] [place] [address] VIR Urea nitrogen [Mass/Vol] 35 mg/dL High 5- [facility] Comment on above: Performed By: #### C MP ####[facility] ([address] [place] [address] VIR MAGNESIUMon 03-19-2025 Magnesium [Mass/Vol] 1.8 mg/dL Normal 1.8-2.6 [facility] Comment on above: Performed By: #### M G ####[facility] ([address] [place] [address] VIR BEDSIDE GLUCOSEon 03-18-2025 Glucose [Mass/Vol] 228 mg/dL High -[address] [place] [address] Comment on above: Performed By: #### B EDG ####[facility] ([address] [place] [address] VIR Glucose [Mass/Vol] 331 mg/dL High [address] [place] [address] Comment on above: Performed By: #### B EDG ####[facility] ([address] [place] [address] VIR Glucose [Mass/Vol] 259 mg/dL High 6599 [facility] Comment on above: Performed By: #### B EDG ####[facility] ([address] [address] VIR CBC WITH AUTO DIFFERENTIALon 03-18-2025 BASOPHILS ABSOLUTE COUNT (10*3/UL) BY AUTOMATED COUNT 0.1 10*3/uL Normal [facility] Comment on above: Performed By: #### C BCA ####[facility] ([address] [address] VIR BASOPHILS RELATIVE PERCENT BY AUTOMATED COUNT 0.6 % Normal [facility] Comment on above: Performed By: #### C BCA ####[facility] ([address] [address] VIR Eosinophils (Bld) [#/Vol] 0.5 10*3/uL Normal [facility] Comment on above: Performed By: #### C BCA ####[facility] ([address] [address] VIR EOSINOPHILS RELATIVE PERCENT BY AUTOMATED COUNT 6.2 % Normal [facility] Comment on above: Performed By: #### C BCA ####[facility] ([address] [address] VIR Erythrocyte distribution width (RBC) [Ratio] 17.6 % High 11.5-15 [facility] Comment on above: Performed By: #### C BCA ####[facility] ([address] [address] VIR Hematocrit (Bld) [Volume fraction] 28.8 % Low 35-47 [facility] Comment on above: Performed By: #### C BCA ####[facility] ([address] [address] VIR Hemoglobin (Bld) [Mass/Vol] 9.7 g/dL Low 11.7-15.5 [facility] Comment on above: Performed By: #### C BCA ####[facility] ([address] [place] [address] VIR LYMPHOCYTES ABSOLUTE COUNT (10*3/UL) BY AUTOMATED COUNT 2.3 10*3/uL Normal [facility] Comment on above: Performed By: #### C BCA ####[facility] ([address] [place] [address] VIR LYMPHOCYTES RELATIVE PERCENT BY AUTOMATED COUNT 27.4 % Normal [facility] Comment on above: Performed By: #### C BCA ####[facility] ([address] [address] VIR MCH (RBC) [Entitic mass] 28.5 pg Normal 27-34 [facility] Comment on above: Performed By: #### C BCA ####[facility] ([address] [place] [address] VIR MCHC (RBC) [Mass/Vol] 33.6 g/dL Normal 32-36 [facility] Comment on above: Performed By: #### C BCA ####[facility] ([address] [place] [address] VIR MCV (RBC) [Entitic vol] 84.9 fL Normal 80-100 [facility] Comment on above: Performed By: #### C BCA ####[facility] ([address] [place] [address] VIR MONOCYTES ABSOLUTE COUNT (10*3/UL) BY AUTOMATED COUNT 1.0 10*3/uL Normal [facility] Comment on above: Performed By: #### C BCA ####[facility] ([address] [address] VIR MONOCYTES RELATIVE PERCENT BY AUTOMATED COUNT 11.3 % Normal [facility] Comment on above: Performed By: #### C BCA ####[facility] ([address] [place] [address] VIR NEUTROPHILS ABSOLUTE COUNT BY AUTOMATED COUNT 4.6 10*3/uL Normal [facility] Comment on above: Performed By: #### C BCA ####[facility] ([address] [place] [address] VIR NEUTROPHILS RELATIVE PERCENT BY AUTOMATED COUNT 54.5 % Normal [facility] Comment on above: Performed By: #### C BCA ####[facility] ([address] [place] [address] VIR Platelet mean volume (Bld) [Entitic vol] 8.2 fL Normal 7-12 [facility] Comment on above: Performed By: #### C BCA ####[facility] ([address] [place] [address] VIR Platelets (Bld) [#/Vol] 253 10*3/uL Normal 150-450 [facility] Comment on above: Performed By: #### C BCA ####[facility] ([address] [address] VIR RBC COUNT 3.40 X10E12/L Low 3.8-5.2 [facility] Comment on above: Performed By: #### C BCA ####[facility] ([address] [place] [address] VIR WBC (Bld) [#/Vol] 8.5 10*3/uL Normal 4-11 [facility] Comment on above: Performed By: #### C BCA ####[facility] ([address] [address] VIR CK TOTALon 03-18-2025 CPK 262 U/L High 24-170 [facility] Comment on above: Performed By: #### C PK ####[facility] ([address] [place] [address] VIR COMPREHENSIVE METABOLIC PANE Dickson 03-18-2025 Albumin [Mass/Vol] 3.5 g/dL Normal 3.2-5.3 [facility] Comment on above: Performed By: #### C MP ####[facility] ([facility] [place] [address] VIR ALP [Catalytic activity/Vol] 110 U/L Normal 39-130 [facility] Comment on above: Performed By: #### C MP ####[facility] ([place] [address] [place] [address] VIR ALT [Catalytic activity/Vol] 16 U/L Normal <=31 [facility] Comment on above: Performed By: #### C MP ####[facility] ([place] [address] [place] [address] VIR Anion gap [Moles/Vol] 10 mmol/L Normal 5-15 [facility] Comment on above: Performed By: #### C MP ####[facility] ([place] [address] [place] [address] VIR AST [Catalytic activity/Vol] 25 U/L Normal <=41 [facility] Comment on above: Performed By: #### C MP ####[facility] ([place] [address] [place] [address] VIR Bilirubin [Mass/Vol] 0.4 mg/dL Normal 0.3-1.2 [facility] Comment on above: Performed By: #### C MP ####[facility] ([place] [address] [place] [address] VIR Calcium [Mass/Vol] 9.2 mg/dL Normal 8.5-10.5 [facility] Comment on above: Performed By: #### C MP ####[facility] ([place] [address] [place] [address] VIR Chloride [Moles/Vol] 99 mmol/L Normal 98-109 [facility] Comment on above: Performed By: #### C MP ####[facility] ([address] [place] [address] VIR CO2 [Moles/Vol] 26 mmol/L Normal 22-32 [facility] Comment on above: Performed By: #### C MP ####[facility] ([address] [place] [address] VIR Creatinine [Mass/Vol] 1.80 mg/dL High 0.40-1.00 [facility] Comment on above: Result Comment: METH OD TRACEABLE TO IDMS STANDARD Performed By: #### C MP ####[facility] ([address] [address] VIR GFR/1.73 sq M.predicted among non-blacks MDRD (S/P/Bld) [Vol rate/Area] 28 mL/min/{1.73_m2} Low >=60 [facility] Comment on above: Result Comment: Repo rted eGFR is based on theCKD-EPI 2020 equation that doesnot use a race coefficient. Performed By: #### C MP ####[facility] ([address] [address] VIR Glucose [Mass/Vol] 145 mg/dL High 65-99 [facility] Comment on above: Performed By: #### C MP ####[facility] ([address] [address] VIR Potassium [Moles/Vol] 3.8 mmol/L Normal 3.5-5.0 [facility] Comment on above: Performed By: #### C MP ####[facility] ([address] [address] VIR Protein [Mass/Vol] 7.6 g/dL Normal 6.0-8.0 [facility] Comment on above: Performed By: #### C MP ####[facility] ([address] [place] [address] VIR Sodium [Moles/Vol] 135 mmol/L Normal 134-146 [facility] Comment on above: Performed By: #### C MP ####[facility] ([address] [place] [address] VIR Urea nitrogen [Mass/Vol] 27 mg/dL Normal 5-27 [facility] Comment on above: Performed By: #### C MP ####[facility] ([address] [place] [address] VIR MAGNESIUMon 03-18-2025 Magnesium [Mass/Vol] 1.7 mg/dL Low 1.8-2.6 [facility] Comment on above: Performed By: #### M G ####[facility] ([address] [place] [address] VIR BEDSIDE GLUCOSEon 03-17-2025 Glucose [Mass/Vol] 216 mg/dL High 65-99 [facility] Comment on above: Performed By: #### B EDG ####[facility] ([address] [place] [address] VIR Glucose [Mass/Vol] 170 mg/dL High 65-99 [facility] Comment on above: Performed By: #### B EDG ####[facility] ([address] [place] [address] VIR Glucose [Mass/Vol] 278 mg/dL High 65-99 [facility] Comment on above: Performed By: #### B EDG ####[facility] ([address] [place] [address] VIR CBC WITH AUTO DIFFERENTIALon 03-17-2025 BASOPHILS ABSOLUTE COUNT (10*3/UL) BY AUTOMATED COUNT 0.0 10*3/uL Normal [facility] Comment on above: Performed By: #### C BCA ####[facility] ([facility])[address] [place], [place] [address] [place] [address] VIR BASOPHILS RELATIVE PERCENT BY AUTOMATED COUNT 0.5 % Normal [facility] Comment on above: Performed By: #### C BCA ####[facility] ([facility])[address] [place] [address] [place] [address] VIR CELLAVISION DIFFERENTIAL TYPE AUTOMATED DIFFERENTIAL Normal [facility] Comment on above: Performed By: #### C BCA ####[facility] ([address] [place] [address] VIR Eosinophils (Bld) [#/Vol] 0.5 10*3/uL Normal [facility] Comment on above: Performed By: #### C BCA ####[facility] ([address] [place] [address] VIR EOSINOPHILS RELATIVE PERCENT BY AUTOMATED COUNT 5.5 % Normal [facility] Comment on above: Performed By: #### C BCA ####[facility] ([address] [place] [address] VIR Erythrocyte distribution width (RBC) [Ratio] 17.8 % High 11.5-15 [facility] Comment on above: Performed By: #### C BCA ####[facility] ([address] [place] [address] VIR Hematocrit (Bld) [Volume fraction] 29.6 % Low 35-47 [facility] Comment on above: Performed By: #### C BCA ####[facility] ([address] [place] [address] VIR Hemoglobin (Bld) [Mass/Vol] 9.7 g/dL Low 11.7-15.5 [facility] Comment on above: Performed By: #### C BCA ####[facility] ([address] [place] [address] VIR LYMPHOCYTES ABSOLUTE COUNT (10*3/UL) BY AUTOMATED COUNT 1.6 10*3/uL Normal [facility] Comment on above: Performed By: #### C BCA ####[facility] ([facility])[address] [place] [address] VIR LYMPHOCYTES RELATIVE PERCENT BY AUTOMATED COUNT 17.7 % Normal [facility] Comment on above: Performed By: #### C BCA ####[facility] ([address] [address] VIR MCH (RBC) [Entitic mass] 28.4 pg Normal 27-34 [facility] Comment on above: Performed By: #### C BCA ####[facility] ([address] [address] VIR MCHC (RBC) [Mass/Vol] 32.9 g/dL Normal 32-36 [facility] Comment on above: Performed By: #### C BCA ####[facility] ([address] [address] VIR MCV (RBC) [Entitic vol] 86 fL Normal 80-100 [facility] Comment on above: Performed By: #### C BCA ####[facility] ([address] [place] [address] VIR MONOCYTES ABSOLUTE COUNT (10*3/UL) BY AUTOMATED COUNT 0.9 10*3/uL Normal [facility] Comment on above: Performed By: #### C BCA ####[facility] ([address] [address] VIR MONOCYTES RELATIVE PERCENT BY AUTOMATED COUNT 10.6 % Normal [facility] Comment on above: Performed By: #### C BCA ####[facility] ([facility])[address] [place] [address].[place] [address] VIR NEUTROPHILS ABSOLUTE COUNT BY AUTOMATED COUNT 5.8 10*3/uL Normal [facility] Comment on above: Performed By: #### C BCA ####[facility] ([address] [place] [address] VIR NEUTROPHILS RELATIVE PERCENT BY AUTOMATED COUNT 65.7 % Normal [facility] Comment on above: Performed By: #### C BCA ####[facility] ([address] [place] [address] VIR Platelet mean volume (Bld) [Entitic vol] 8.2 fL Normal 7-12 [facility] Comment on above: Performed By: #### C BCA ####[facility] ([address] [address] VIR Platelets (Bld) [#/Vol] 280 10*3/uL Normal 150-450 [facility] Comment on above: Performed By: #### C BCA ####[facility] ([address] [address] VIR RBC COUNT 3.44 X10E12/L Low 3.8-5.2 [facility] Comment on above: Performed By: #### C BCA ####[facility] ([address] [address] VIR WBC (Bld) [#/Vol] 8.8 10*3/uL Normal 4-11 [facility] Comment on above: Performed By: #### C BCA ####[facility] ([address] [address] VIR COMPREHENSIVE METABOLIC PANE Dickson 03-17-2025 Albumin [Mass/Vol] 3.5 g/dL Normal 3.2-5.3 [facility] Comment on above: Performed By: #### C MP ####[facility] ([address] [address] VIR ALP [Catalytic activity/Vol] 119 U/L Normal 39-130 [facility] Comment on above: Performed By: #### C MP ####[facility] ([place] [address] [place] [address] VIR ALT [Catalytic activity/Vol] 17 U/L Normal <=31 [facility] Comment on above: Performed By: #### C MP ####[facility] ([place] [address] [place] [address] VIR Anion gap [Moles/Vol] 12 mmol/L Normal 5-15 [facility] Comment on above: Performed By: #### C MP ####[facility] ([address] [place] [address] VIR AST [Catalytic activity/Vol] 23 U/L Normal <=41 [facility] Comment on above: Performed By: #### C MP ####[address] [place] [place] [address] VIR Bilirubin [Mass/Vol] 0.6 mg/dL Normal 0.3-1.2 [facility] Comment on above: Performed By: #### C MP ####[facility] ([address] [place] [address] VIR Calcium [Mass/Vol] 9.4 mg/dL Normal 8.5-10.5 [facility] Comment on above: Performed By: #### C MP ####[facility] ([place] [address] [place] [address] VIR Chloride [Moles/Vol] 97 mmol/L Low 98-109 [facility] Comment on above: Performed By: #### C MP ####[facility] ([address] [place] [address] VIR CO2 [Moles/Vol] 25 mmol/L Normal 22-32 [facility] Comment on above: Performed By: #### C MP ####[facility] ([place])[address] [place], [place] [address] [address] VIR Creatinine [Mass/Vol] 1.53 mg/dL High 0.40-1.00 [facility] Comment on above: Result Comment: METH OD TRACEABLE TO IDMS STANDARD Performed By: #### C MP ####[facility] ([facility])[address] [place] [address].[place] [address] VIR GFR/1.73 sq M.predicted among non-blacks MDRD (S/P/Bld) [Vol rate/Area] 35 mL/min/{1.73_m2} Low >=60 [facility] Comment on above: Result Comment: eGFR not reported due to non-numeric value for Creatinine.Reported eGFR is based on theCKD-EPI 2020 equation that doesnot use a race coefficient. Performed By: #### C MP ####[facility] ([address] [place] [address] VIR Glucose [Mass/Vol] 153 mg/dL High 65-99 [facility] Comment on above: Performed By: #### C MP ####[facility] ([address] [place] [address] VIR Potassium [Moles/Vol] 3.9 mmol/L Normal 3.5-5.0 [facility] Comment on above: Performed By: #### C MP ####[facility] ([address] [place] [address] VIR Protein [Mass/Vol] 7.9 g/dL Normal 6.0-8.0 [facility] Comment on above: Performed By: #### C MP ####[facility] ([address] [place] [address] VIR Sodium [Moles/Vol] 134 mmol/L Normal 134-146 [facility] Comment on above: Performed By: #### C MP ####[facility] ([address] [place] [address] VIR Urea nitrogen [Mass/Vol] 24 mg/dL Normal 5-27 [facility] Comment on above: Performed By: #### C MP ####[facility] ([facility])[address] [place] [address] [place] [address] VIR MAGNESIUMon 03-17-2025 Magnesium [Mass/Vol] 1.8 mg/dL Normal 1.8-2.6 [facility] Comment on above: Performed By: #### M G ####[facility] ([facility])[address] [place] [address] [place] [address] VIR 36on 03-16-2025 36 Patient's daughter c alled to cancel upcoming appointment with [facility] on 03/19/25 as patient is currently hospitalized. Daughter stated she will reschedule when patient is discharged and back at SNF. Normal [facility] 36 Spoke with Raina at [employer] [...] Er visit to determine pt disposition. Normal [facility] BASIC METABOLIC PANELon 05-0 Anion gap [Moles/Vol] 9 mmol/L Normal 5-15 [facility] Comment on above: Performed By: #### B MP ####[facility] ([facility])[address] [place] [address] [place] [address] VIR Calcium [Mass/Vol] 9.6 mg/dL Normal 8.5-10.5 [facility] Comment on above: Performed By: #### B MP ####[facility] ([facility])[address] [place] [address] [place] [address] VIR Chloride [Moles/Vol] 102 mmol/L Normal 98-109 [facility] Comment on above: Performed By: #### B MP ####[facility] ([facility])[address] [place] [address].[place] [address] VIR CO2 [Moles/Vol] 27 mmol/L Normal 22-32 [facility] Comment on above: Performed By: #### B MP ####[facility] ([facility])[address] [place] [address].[place] [address] VIR Creatinine [Mass/Vol] 1.59 mg/dL High 0.40-1.00 [facility] Comment on above: Result Comment: METH OD TRACEABLE TO IDMS STANDARD Performed By: #### B MP ####[facility] ([address] [place] [address] VIR GFR/1.73 sq M.predicted among non-blacks MDRD (S/P/Bld) [Vol rate/Area] 33 mL/min/{1.73_m2} Low >=60 [facility] Comment on above: Result Comment: eGFR not reported due to non-numeric value for Creatinine.Reported eGFR is based on theCKD-EPI 2020 equation that doesnot use a race coefficient. Performed By: #### B MP ####[facility] ([address] [place] [address] VIR Glucose [Mass/Vol] 179 mg/dL High 65-99 [facility] Comment on above: Performed By: #### B MP ####[facility] ([address] [place] [address] VIR Potassium [Moles/Vol] 4.6 mmol/L Normal 3.5-5.0 [facility] Comment on above: Performed By: #### B MP ####[facility] ([address] [place] [address] VIR Sodium [Moles/Vol] 138 mmol/L Normal 134-146 [facility] Comment on above: Performed By: #### B MP ####[facility] ([address] [place] [address] VIR Urea nitrogen [Mass/Vol] 25 mg/dL Normal - [facility] Comment on above: Performed By: #### B MP ####[facility] ([address] [place] [address] VIR BEDSIDE GLUCOSEon 03-16-2025 Glucose [Mass/Vol] 228 mg/dL High - [facility] Comment on above: Performed By: #### B EDG ####[facility] ([address], [place] [address] VIR Glucose [Mass/Vol] 160 mg/dL High [address] [place] [address] Comment on above: Performed By: #### B EDG ####[facility] ([address] [address] VIR CBC WITH AUTO DIFFERENTIALon 03-16-2025 BASOPHILS ABSOLUTE COUNT (10*3/UL) BY AUTOMATED COUNT 0.1 10*3/uL Normal [facility] Comment on above: Performed By: #### C BCA ####[facility] ([address] [address] VIR BASOPHILS RELATIVE PERCENT BY AUTOMATED COUNT 0.6 % Normal [facility] Comment on above: Performed By: #### C BCA ####[facility] ([address] [place] [address] VIR CELLAVISION DIFFERENTIAL TYPE AUTOMATED DIFFERENTIAL Normal [facility] Comment on above: Performed By: #### C BCA ####[facility] ([address] [address] VIR Eosinophils (Bld) [#/Vol] 0.2 10*3/uL Normal [facility] Comment on above: Performed By: #### C BCA ####[facility] ([address] [place] [address] VIR EOSINOPHILS RELATIVE PERCENT BY AUTOMATED COUNT 2.4 % Normal [facility] Comment on above: Performed By: #### C BCA ####[facility] ([address] [place] [address] VIR Erythrocyte distribution width (RBC) [Ratio] 18.0 % High 11.5-15 [facility] Comment on above: Performed By: #### C BCA ####[facility] ([address] [address] VIR Hematocrit (Bld) [Volume fraction] 29.4 % Low 35-47 [facility] Comment on above: Performed By: #### C BCA ####[facility] ([address] [address] VIR Hemoglobin (Bld) [Mass/Vol] 9.7 g/dL Low 11.7-15.5 [facility] Comment on above: Performed By: #### C BCA ####[facility] ([address] [address] VIR LYMPHOCYTES ABSOLUTE COUNT (10*3/UL) BY AUTOMATED COUNT 1.2 10*3/uL Normal [facility] Comment on above: Performed By: #### C BCA ####[facility] ([address] [place] [address] VIR LYMPHOCYTES RELATIVE PERCENT BY AUTOMATED COUNT 15.2 % Normal [facility] Comment on above: Performed By: #### C BCA ####[facility] ([address] [address] VIR MCH (RBC) [Entitic mass] 28.2 pg Normal 27-34 [facility] Comment on above: Performed By: #### C BCA ####[facility] ([address] [address] VIR MCHC (RBC) [Mass/Vol] 32.9 g/dL Normal 32-36 [facility] Comment on above: Performed By: #### C BCA ####[facility] ([address] [address] VIR MCV (RBC) [Entitic vol] 86 fL Normal 80-100 [facility] Comment on above: Performed By: #### C BCA ####[facility] ([address] [address] VIR MONOCYTES ABSOLUTE COUNT (10*3/UL) BY AUTOMATED COUNT 0.7 10*3/uL Normal [facility] Comment on above: Performed By: #### C BCA ####[facility] ([address] [address] VIR MONOCYTES RELATIVE PERCENT BY AUTOMATED COUNT 8.5 % Normal [facility] Comment on above: Performed By: #### C BCA ####[facility] ([address] [address] VIR NEUTROPHILS ABSOLUTE COUNT BY AUTOMATED COUNT 5.9 10*3/uL Normal [facility] Comment on above: Performed By: #### C BCA ####[facility] ([address] [address] VIR NEUTROPHILS RELATIVE PERCENT BY AUTOMATED COUNT 73.3 % Normal [facility] Comment on above: Performed By: #### C BCA ####[facility] ([address] [address] VIR Platelet mean volume (Bld) [Entitic vol] 7.8 fL Normal 7-12 [facility] Comment on above: Performed By: #### C BCA ####[facility] ([address] [address] VIR Platelets (Bld) [#/Vol] 275 10*3/uL Normal 150-450 [facility] Comment on above: Performed By: #### C BCA ####[facility] ([address] [place] [address] VIR RBC COUNT 3.43 X10E12/L Low 3.8-5.2 [facility] Comment on above: Performed By: #### C BCA ####[facility] ([address] [place] [address] VIR WBC (Bld) [#/Vol] 8.1 10*3/uL Normal 4-11 [facility] Comment on above: Performed By: #### C BCA ####[facility] ([address] [place] [address] VIR MAGNESIUMon 03-16-2025 Magnesium [Mass/Vol] 1.9 mg/dL Normal 1.8-2.6 [facility] Comment on above: Performed By: #### M G ####[facility] ([address] [place] [address] VIR TROP I, HIGH SENSITIVITY 1 H OURon 03-16-2025 TROPONIN I, HIGH SENSITIVITY 9 ng/L Normal <16 [facility] Comment on above: Performed By: #### T NIHS1 ####[facility] ([address] [place] [address] VIR TROPONIN I, HIGH SENSITIVITY 0 HOURon 03-16-2025 TROPONIN I, HIGH SENSITIVITY 9 ng/L Normal <16 [facility] Comment on above: Performed By: #### T NIHS0 ####[facility] ([address] [place] [address] VIR Telephoneon 03-16-2025 Telephone [phone] Jb Dee 1945 F Date Provider Department Center 03/16/20252046JONATHAN RECINOS [facility] Juan Antonio Heal Family History Problem Relation Age of Onset Diabetes Mother Hypertension Father Coronary artery disease Father Family Status - Relation Status Age at Mother Father Normal [facility] XR CHEST 1 VWon 03-16-2025 XR CHEST 1 VW Normal [facility] 36on 03-15-2025 37 Call from daughter [...] Messages left for Benedicto and Raina at [employer] to pose this question. Normal [facility] BASIC METABOLIC PANELon - Anion gap [Moles/Vol] 10 mmol/L Normal 5-15 [facility] Comment on above: Performed By: #### B MP ####[facility] ([address] [place] [address] VIR Calcium [Mass/Vol] 9.0 mg/dL Normal 8.5-10.5 [facility] Comment on above: Performed By: #### B MP ####[facility] ([address] [place] [address] VIR Chloride [Moles/Vol] 100 mmol/L Normal 98-109 [facility] Comment on above: Performed By: #### B MP ####[facility] ([address] [place] [address] VIR CO2 [Moles/Vol] 27 mmol/L Normal 22-32 [facility] Comment on above: Performed By: #### B MP ####[facility] ([address] [place] [address] VIR Creatinine [Mass/Vol] 1.85 mg/dL High 0.40-1.00 [facility] Comment on above: Result Comment: METH OD TRACEABLE TO IDMS STANDARD Performed By: #### B MP ####[facility] ([address] [place] [address] VIR GFR/1.73 sq M.predicted among non-blacks MDRD (S/P/Bld) [Vol rate/Area] 28 mL/min/{1.73_m2} Low >=60 [facility] Comment on above: Result Comment: eGFR not reported due to non-numeric value for Creatinine.Reported eGFR is based on theCKD-EPI 2020 equation that doesnot use a race coefficient. Performed By: #### B MP ####[facility] ([address] [address] VIR Glucose [Mass/Vol] 222 mg/dL High 65-99 [facility] Comment on above: Performed By: #### B MP ####[address] [address] VIR Potassium [Moles/Vol] 4.3 mmol/L Normal 3.5-5.0 [facility] Comment on above: Performed By: #### B MP ####[facility] ([address] [address] VIR Sodium [Moles/Vol] 137 mmol/L Normal 134-146 [facility] Comment on above: Performed By: #### B MP ####[facility] ([address] [address] VIR Urea nitrogen [Mass/Vol] 33 mg/dL High 5-27 [facility] Comment on above: Performed By: #### B MP ####[facility] ([address] [address] VIR CBC WITH AUTO DIFFERENTIALon 03-12-2025 BASOPHILS ABSOLUTE COUNT (10*3/UL) BY AUTOMATED COUNT 0.1 10*3/uL Normal [facility] Comment on above: Order Comment: Abnor mal CBC with auto diff reflexes to a manual diff Performed By: #### C BCA ####[facility] ([address] [address] VIR BASOPHILS RELATIVE PERCENT BY AUTOMATED COUNT 1.0 % Normal [facility] Comment on above: Order Comment: Abnor mal CBC with auto diff reflexes to a manual diff Performed By: #### C BCA ####[facility] ([address] [place] [address] VIR CELLAVISION DIFFERENTIAL TYPE AUTOMATED DIFFERENTIAL Normal [facility] Comment on above: Order Comment: Abnor mal CBC with auto diff reflexes to a manual diff Performed By: #### C BCA ####[facility] ([address] [address] VIR Eosinophils (Bld) [#/Vol] 0.4 10*3/uL Normal [facility] Comment on above: Order Comment: Abnor mal CBC with auto diff reflexes to a manual diff Performed By: #### C BCA ####[facility] ([address] [address] VIR EOSINOPHILS RELATIVE PERCENT BY AUTOMATED COUNT 6.3 % Normal [facility] Comment on above: Order Comment: Abnor mal CBC with auto diff reflexes to a manual diff Performed By: #### C BCA ####[facility] ([address] [address] VIR Erythrocyte distribution width (RBC) [Ratio] 18.5 % High 11.5-15 [facility] Comment on above: Order Comment: Abnor mal CBC with auto diff reflexes to a manual diff Performed By: #### C BCA ####[facility] ([address] [address] VIR Hematocrit (Bld) [Volume fraction] 28.2 % Low 35-47 [facility] Comment on above: Order Comment: Abnor mal CBC with auto diff reflexes to a manual diff Performed By: #### C BCA ####[facility] ([address] [address] VIR Hemoglobin (Bld) [Mass/Vol] 9.3 g/dL Low 11.7-15.5 [facility] Comment on above: Order Comment: Abnor mal CBC with auto diff reflexes to a manual diff Performed By: #### C BCA ####[facility] ([address] [place] [address] VIR LYMPHOCYTES ABSOLUTE COUNT (10*3/UL) BY AUTOMATED COUNT 1.6 10*3/uL Normal [facility] Comment on above: Order Comment: Abnor mal CBC with auto diff reflexes to a manual diff Performed By: #### C BCA ####[facility] ([address] [address] VIR LYMPHOCYTES RELATIVE PERCENT BY AUTOMATED COUNT 23.6 % Normal [facility] Comment on above: Order Comment: Abnor mal CBC with auto diff reflexes to a manual diff Performed By: #### C BCA ####[facility] ([address] [address] VIR MCH (RBC) [Entitic mass] 28.4 pg Normal 27-34 [facility] Comment on above: Order Comment: Abnor mal CBC with auto diff reflexes to a manual diff Performed By: #### C BCA ####[facility] ([address] [address] VIR MCHC (RBC) [Mass/Vol] 32.9 g/dL Normal 32-36 [facility] Comment on above: Order Comment: Abnor mal CBC with auto diff reflexes to a manual diff Performed By: #### C BCA ####[facility] ([address] [address] VIR MCV (RBC) [Entitic vol] 87 fL Normal 80-100 [facility] Comment on above: Order Comment: Abnor mal CBC with auto diff reflexes to a manual diff Performed By: #### C BCA ####[facility] ([address] [address] VIR MONOCYTES ABSOLUTE COUNT (10*3/UL) BY AUTOMATED COUNT 0.7 10*3/uL Normal [facility] Comment on above: Order Comment: Abnor mal CBC with auto diff reflexes to a manual diff Performed By: #### C BCA ####[facility] ([address] [address] VIR MONOCYTES RELATIVE PERCENT BY AUTOMATED COUNT 10.1 % Normal [facility] Comment on above: Order Comment: Abnor mal CBC with auto diff reflexes to a manual diff Performed By: #### C BCA ####[facility] ([address] [address] VIR NEUTROPHILS ABSOLUTE COUNT BY AUTOMATED COUNT 3.9 10*3/uL Normal [facility] Comment on above: Order Comment: Abnor mal CBC with auto diff reflexes to a manual diff Performed By: #### C BCA ####[facility] ([address] [address] VIR NEUTROPHILS RELATIVE PERCENT BY AUTOMATED COUNT 59.0 % Normal [facility] Comment on above: Order Comment: Abnor mal CBC with auto diff reflexes to a manual diff Performed By: #### C BCA ####[facility] ([address] [address] VIR Platelet mean volume (Bld) [Entitic vol] 8.9 fL Normal 7-12 [facility] Comment on above: Order Comment: Abnor mal CBC with auto diff reflexes to a manual diff Performed By: #### C BCA ####[facility] ([address] [address] VIR Platelets (Bld) [#/Vol] 251 10*3/uL Normal 150-450 [facility] Comment on above: Order Comment: Abnor mal CBC with auto diff reflexes to a manual diff Performed By: #### C BCA ####[facility] ([address] [address] VIR RBC COUNT 3.26 X10E12/L Low 3.8-5.2 [facility] Comment on above: Order Comment: Abnor mal CBC with auto diff reflexes to a manual diff Performed By: #### C BCA ####[facility] ([facility])[address] [place] [address] [place] [address] VIR WBC (Bld) [#/Vol] 6.6 10*3/uL Normal 4-11 [facility] Comment on above: Order Comment: Abnor mal CBC with auto diff reflexes to a manual diff Performed By: #### C BCA ####[facility] ([facility])[address] [place] [address] [place] [address] VIR CK TOTALon 03-12-2025 CPK 89 U/L Normal 24-170 [facility] Comment on above: Performed By: #### C PK ####[facility] ([address] [place] [address] VIR 36on 03-07-2025 36 Partial labs are in media with the CK and CBC still pending with no results at this time Normal [facility] 36on 02-26-2025 36 Opat received. Ed rmed orders for meds, labs ,Eots with Sonia at [facility]. Follow up appt scheduled. Normal [facility] 36 Call to Sonia at [facility] and confirmed antibiotic orders, weekly labs and EOTs. Follow up appt scheduled. Normal [facility] CBC AND AUTO DIFFon 02-25-20 25 ABSOLUTE BASOPHIL 0.0 X10E9/L Normal 0.0-0.2 [facility] Comment on above: Performed By: #### C BCA, CMP, 90294-2 #### [facility] ([id number]) [address], [address] [place] [address] ABSOLUTE NEUTROPHIL 3.4 X10E9/L Normal 1.5-6.6 [facility] Comment on above: Performed By: #### C BCA, CMP, 68948-5 #### [facility] ([id number]) [address], [address] [place] [address] Basophils/100 WBC (Bld) 0.6 % Normal [facility] Comment on above: Performed By: #### Renita HENSON CMP, #### [facility] ([id number]) [address], [facility] [address] [place] [address] Eosinophils (Bld) [#/Vol] 0.3 10*3/uL Normal 0.0-0.4 [facility] Comment on above: Performed By: #### Renita HENSON CMP, #### [facility] ([id number]) [address], [facility] [address] [place] [address] Eosinophils/100 WBC (Bld) 4.3 % Normal [facility] Comment on above: Performed By: #### Renita HENSON CMP, #### [facility] ([id number]) [address], [facility] [address] [place] [address] Erythrocyte distribution width (RBC) [Ratio] 18.2 % High 11.5-15.0 [facility] Comment on above: Performed By: #### Renita HENSON CMP, #### [facility] ([id number]) [address], [facility] [address] [place] [address] Hematocrit (Bld) [Volume fraction] 24.1 % Low 35-47 [facility] Comment on above: Performed By: #### Renita HENSON CMP, #### [facility] ([id number]) [address], [facility] [address] [place] [address] Hemoglobin (Bld) [Mass/Vol] 7.9 g/dL Low 11.7-15.5 [facility] Comment on above: Performed By: #### Renita HENSON CMP, #### [facility] ([id number]) [address], [facility] [address] [place] [address] Lymphocytes (Bld) [#/Vol] 2.0 10*3/uL Normal 1.0-3.5 [facility] Comment on above: Performed By: #### C NAT[employer]IDAD CMP, #### [facility] ([id number]) [address], [address] [place] [address] Lymphocytes/100 WBC (Bld) 30.7 % Normal [facility] Comment on above: Performed By: #### Renita HENSON CMP, #### [facility] ([id number]) [address], [address] [place] [address] MCH (RBC) [Entitic mass] 27.7 pg Normal 27-34 [facility] Comment on above: Performed By: #### Renita HENSON CMP, #### [facility] ([id number]) [address], [address] [place] [address] MCHC (RBC) [Mass/Vol] 32.7 g/dL Normal 32-36 [facility] Comment on above: Performed By: #### Renita HENSON CMP, #### [facility] ([id number]) [address], [address] [place] [address] MCV (RBC) [Entitic vol] 85 fL Normal 80-100 [facility] Comment on above: Performed By: #### Renita HENSON CMP, #### [facility] ([id number]) [address], [address] [place] [address] Monocytes (Bld) [#/Vol] 0.8 10*3/uL Normal 0-0.9 [facility] Comment on above: Performed By: #### Renita HENSON, CMP, #### [facility] ([id number]) [address], [address] [place] [address] Monocytes/100 WBC (Bld) 12.3 % Normal [facility] Comment on above: Performed By: #### C BCA, CMP, #### [facility] ([id number]) [address], [address] [place] [address] Neutrophils/100 WBC (Bld) 52.1 % Normal [facility] Comment on above: Performed By: #### C BCA, CMP, 35685-9 #### [facility] ([id number]) [address], [address] [place] [address] Platelet mean volume (Bld) [Entitic vol] 7.9 fL Normal 7-12 [facility] Comment on above: Performed By: #### C NATIVIDAD, CMP, 66258-2 #### [facility] ([id number]) [address], [address] [place] [address] Platelets (Bld) [#/Vol] 334 10*3/uL Normal 150-450 [facility] Comment on above: Performed By: #### C BCA, CMP, 96124-8 #### [facility] ([id number]) [address], [address] [place] [address] RBC COUNT 2.84 X10E12/L Low 3.80-5.20 [facility] Comment on above: Performed By: #### C BCA, CMP, 20981-0 #### [facility] ([id number]) [address], [address] [place] [address] WBC (Bld) [#/Vol] 6.6 10*3/uL Normal 4.0-11.0 [facility] Comment on above: Performed By: #### C BCA, CMP, 82638-8 #### [facility] ([id number]) [address], [address] [place] [address] CK [Catalytic activity/Vol]o n 02-24-2025 CPK 26 U/L Normal 24-170 [facility] Comment on above: Performed By: #### C BCA, CMP, #### [facility] ([id number]) [address], [address] [place] [address] COMPREHENSIVE METABOLIC PANE Dickson 02-24-2025 Albumin [Mass/Vol] 3.3 g/dL Normal 3.2-5.3 [facility] Comment on above: Performed By: #### C BCA, CMP, 34917-6 #### [facility] ([id number]) [address], [address] [place] [address] ALP [Catalytic activity/Vol] 90 U/L Normal 39-130 [facility] Comment on above: Performed By: #### C BCA, CMP, #### [facility] ([id number]) [address], [address] [place] [address] ALT [Catalytic activity/Vol] 18 U/L Normal 0-31 [facility] Comment on above: Performed By: #### C BCA, CMP, #### [facility] ([id number]) [address], [address] [place] [address] Anion gap [Moles/Vol] 6 mmol/L Normal 5-15 [facility] Comment on above: Performed By: #### C BCA, CMP, #### [facility] ([id number]) [address], [address] [place] [address] AST [Catalytic activity/Vol] 17 U/L Normal 0-41 [facility] Comment on above: Performed By: #### C BCA, CMP, #### [facility] ([id number]) [address], [address] [place] [address] Bilirubin [Mass/Vol] 0.3 mg/dL Normal 0.3-1.2 [facility] Comment on above: Performed By: #### C BCA, CMP, 87246-6 #### [facility] ([id number]) [address], [address] [place] [address] Calcium [Mass/Vol] 8.5 mg/dL Normal 8.5-10.5 [facility] Comment on above: Performed By: #### C RUBEN HENSON, 28449-2 #### [facility] ([id number]) [address], [address] [place] [address] Chloride [Moles/Vol] 105 mmol/L Normal 98-109 [facility] Comment on above: Performed By: #### C RUBEN HENSON, #### [facility] ([id number]) [address], [address] [place] [address] CO2 [Moles/Vol] 28 mmol/L Normal 22-32 [facility] Comment on above: Performed By: #### C RUBEN HENSON, #### [facility] ([id number]) [address], [address] [place] [address] Creatinine [Mass/Vol] 1.81 mg/dL High 0.40-1.00 [facility] Comment on above: Result Comment: METH OD TRACEABLE TO IDMS STANDARD Performed By: #### C RUBEN HENSON, 97413-5 #### [facility] ([id number]) [address], [address] [place] [address] GFR/1.73 sq M.predicted among non-blacks MDRD (S/P/Bld) [Vol rate/Area] 28 mL/min/{1.73_m2} Low >59 [facility] Comment on above: Result Comment: Reported eGFR is based on the CKD-EPI 2020 equation that does not use a race coefficient. Performed By: #### C RUBEN HENSON, #### [facility] ([id number]) [address], [address] [place] [address] Glucose [Mass/Vol] 113 mg/dL High 65-99 [facility] Comment on above: Performed By: #### C RUBEN HENSON, #### [facility] ([id number]) [address], [address] [place] [address] Potassium [Moles/Vol] 4.8 mmol/L Normal 3.5-5.0 [facility] Comment on above: Performed By: #### C NATIVIDAD CMP, 03880-5 #### [facility] ([id number]) [address], [address] [place] [address] Protein [Mass/Vol] 6.5 g/dL Normal 6.0-8.0 [facility] Comment on above: Performed By: #### Renita HENSON CMP, #### [facility] ([id number]) [address], [address] [place] [address] Sodium [Moles/Vol] 139 mmol/L Normal 134-146 [facility] Comment on above: Performed By: #### Renita HENSON, CMP, #### [facility] ([id number]) [address], [address] [place] [address] Urea nitrogen [Mass/Vol] 28 mg/dL High 5-27 [facility] Comment on above: Performed By: #### C NATIVIDAD, CMP, 26258-8 #### [facility] ([id number]) [address], [address] [place] [address] Glucose Glucometer (BldC) [M ass/Vol]on 02-24-2025 Glucose [Mass/Vol] 266 mg/dL High 65-99 [facility] Glucose [Mass/Vol] 127 mg/dL High 65-99 [facility] MAGNESIUMon 02-24-2025 Magnesium [Mass/Vol] 2.2 mg/dL Normal 1.8-2.6 [facility] Comment on above: Performed By: #### C BCA, CMP, 74050-4 #### [facility] ([id number]) [address], [address] [place], [place] [id number] CBC AND AUTO DIFFon 02-24-20 25 Band form neutrophils/100 WBC (Bld) 1.1 % Normal [facility] Comment on above: Performed By: #### Renita HENSON CMP, #### [facility] ([id number]) [address] [place] [address] Eosinophils (Bld) [#/Vol] 0.3 10*3/uL Normal 0.0-0.4 [facility] Comment on above: Performed By: #### Renita HENSON CMP, #### [facility] ([id number]) [address] [place] [address] Eosinophils/100 WBC (Bld) 4.3 % Normal [facility] Comment on above: Performed By: #### Renita HENSON CMP, #### [facility] ([id number]) [address] [place] [address] Erythrocyte distribution width (RBC) [Ratio] 17.8 % High 11.5-15.0 [facility] Comment on above: Performed By: #### Renita HENSON CMP, #### [facility] ([id number]) [address], [address] [place] [address] FRAGMENT 1+ Abnormal NONE [facility] Comment on above: Performed By: #### Renita HENSON CMP, #### [facility] ([id number]) [address] [place] [address] Hematocrit (Bld) [Volume fraction] 25.6 % Low 35-47 [facility] Comment on above: Performed By: #### Renita HENSON CMP, #### [facility] ([id number]) [address] [place] [address] Hemoglobin (Bld) [Mass/Vol] 8.4 g/dL Low 11.7-15.5 [facility] Comment on above: Performed By: #### C NATIVIDAD CMP, #### [facility] ([id number]) [address], [address] [place] [address] Lymphocytes (Bld) [#/Vol] 1.9 10*3/uL Normal 1.0-3.5 [facility] Comment on above: Performed By: #### Renita HENSON CMP, #### [facility] ([id number]) [address], [address] [place] [address] Lymphocytes/100 WBC (Bld) 30.1 % Normal [facility] Comment on above: Performed By: #### Reinta HENSON CMP, #### [facility] ([id number]) [address], [address] [place] [address] MCH (RBC) [Entitic mass] 27.5 pg Normal 27-34 [facility] Comment on above: Performed By: #### Renita HENSON CMP, #### [facility] ([id number]) [address], [address] [place] [address] MCHC (RBC) [Mass/Vol] 32.7 g/dL Normal 32-36 [facility] Comment on above: Performed By: #### Renita HENSON CMP, #### [facility] ([id number]) [address], [address] [place] [address] MCV (RBC) [Entitic vol] 84 fL Normal 80-100 [facility] Comment on above: Performed By: #### Renita HENSON CMP, #### [facility] ([id number]) [address], [address] [place] [address] Metamyelocytes/10 0 WBC (Bld) 1.1 % Normal [facility] Comment on above: Performed By: #### Renita HENSON, CMP, #### [facility] ([id number]) [address], [address] [place] [address] Monocytes (Bld) [#/Vol] 0.8 10*3/uL Normal 0-0.9 [facility] Comment on above: Performed By: #### Renita HENSON, CMP, #### [facility] ([id number]) [address], [address] [place] [address] Monocytes/100 WBC (Bld) 12.9 % Normal [facility] Comment on above: Performed By: #### Renita HENSON, CMP, #### [facility] ([id number]) [address], [address] [place] [address] MYELOCYTE 1.1 % Normal [facility] Comment on above: Performed By: #### Renita HENSON, CMP, #### [facility] ([id number]) [address], [address] [place] [address] Neutrophils (Bld) [#/Vol] 3.3 10*3/uL Normal 1.5-6.6 [facility] Comment on above: Performed By: #### Renita HENSON, CMP, #### [facility] ([id number]) [address], [address] [place] [address] NUCLEATED RBC 2.2 /100 WBC High 0.0-1.0 [facility] Comment on above: Performed By: #### Renita BCA, CMP, #### [facility] ([id number]) [address], [address] [place] [address] OVALOCYTE 1+ Abnormal NONE [facility] Comment on above: Performed By: #### Renita BCA, CMP, #### [facility] ([id number]) [address], [address] [place] [address] Platelet mean volume (Bld) [Entitic vol] 8.0 fL Normal 7-12 [facility] Comment on above: Performed By: #### C NATIVIDAD, CMP, #### [facility] ([id number]) [address], [address] [place] [address] Platelets (Bld) [#/Vol] 353 10*3/uL Normal 150-450 [facility] Comment on above: Performed By: #### Renita HENSON, CMP, #### [facility] ([id number]) [address], [address] [place] [address] POLYCHROMASIA 1+ Abnormal NONE [facility] Comment on above: Performed By: #### Renita HENSON, CMP, #### [facility] ([id number]) [address], [address] [place] [address] RBC COUNT 3.04 X10E12/L Low 3.80-5.20 [facility] Comment on above: Performed By: #### Renita HENSON, CMP, #### [facility] ([id number]) [address], [address] [place] [address] SEG NEUTROPHIL 49.4 % Normal [facility] Comment on above: Performed By: #### Renita HENSON, CMP, #### [facility] ([id number]) [address], [address] [place] [address] WBC (Bld) [#/Vol] 6.4 10*3/uL Normal 4.0-11.0 [facility] Comment on above: Performed By: #### Renita HENSON, CMP, #### [facility] ([id number]) [address], [address] [place] [address] COMPREHENSIVE METABOLIC PANE Dickson 02-23-2025 Albumin [Mass/Vol] 3.2 g/dL Normal 3.2-5.3 [facility] Comment on above: Performed By: #### C BCA, CMP, #### [facility] ([id number]) [address], [address] [place] [address] ALP [Catalytic activity/Vol] 103 U/L Normal 39-130 [facility] Comment on above: Performed By: #### C BCA, CMP, #### [facility] ([id number]) [address], [address] [place] [address] ALT [Catalytic activity/Vol] 20 U/L Normal 0-31 [facility] Comment on above: Performed By: #### C BCA, CMP, #### [facility] ([id number]) [address], [address] [place] [address] Anion gap [Moles/Vol] 8 mmol/L Normal 5-15 [facility] Comment on above: Performed By: #### C BCA, CMP, #### [facility] ([id number]) [address], [address] [place] [address] AST [Catalytic activity/Vol] 22 U/L Normal 0-41 [facility] Comment on above: Performed By: #### C BCA, CMP, #### [facility] ([id number]) [address] [place] [address] Bilirubin [Mass/Vol] 0.3 mg/dL Normal 0.3-1.2 [facility] Comment on above: Performed By: #### C BCA, CMP, #### [facility] ([id number]) [address], [address] [place] [address] Calcium [Mass/Vol] 8.8 mg/dL Normal 8.5-10.5 [facility] Comment on above: Performed By: #### C BCA, CMP, #### [facility] ([id number]) [address], [address] [place] [address] Chloride [Moles/Vol] 104 mmol/L Normal 98-109 [facility] Comment on above: Performed By: #### C RUBEN HENSON, 69358-3 #### [facility] ([id number]) [address], [address] [place] [address] CO2 [Moles/Vol] 27 mmol/L Normal 22-32 [facility] Comment on above: Performed By: #### C RUBEN HENSON, 32687-7 #### [facility] ([id number]) [address], [address] [place] [address] Creatinine [Mass/Vol] 1.86 mg/dL High 0.40-1.00 [facility] Comment on above: Result Comment: METH OD TRACEABLE TO IDMS STANDARD Performed By: #### C RUBEN HENSON, #### [facility] ([id number]) [address], [address] [place] [address] GFR/1.73 sq M.predicted among non-blacks MDRD (S/P/Bld) [Vol rate/Area] 27 mL/min/{1.73_m2} Low >59 [facility] Comment on above: Result Comment: Reported eGFR is based on the CKD-EPI 2020 equation that does not use a race coefficient. Performed By: #### C RUBEN HENSON, #### [facility] ([id number]) [address], [address] [place] [address] Glucose [Mass/Vol] 158 mg/dL High 65-99 [facility] Comment on above: Performed By: #### Renita HENSON CMP, 05849-3 #### [facility] ([id number]) [address], [address] [place] [address] Potassium [Moles/Vol] 5.1 mmol/L High 3.5-5.0 [facility] Comment on above: Performed By: #### C RUBEN HENSON, 40280-1 #### [facility] ([id number]) [address], [address] [place] [address] Protein [Mass/Vol] 6.6 g/dL Normal 6.0-8.0 [facility] Comment on above: Performed By: #### C NATIVIDAD, CMP, 53990-2 #### [facility] ([id number]) [address], [address] [place] [address] Sodium [Moles/Vol] 139 mmol/L Normal 134-146 [facility] Comment on above: Performed By: #### C RUBEN HENSON, 66228-0 #### [facility] ([id number]) [address], [address] [place] [address] Urea nitrogen [Mass/Vol] 24 mg/dL Normal 5-27 [facility] Comment on above: Performed By: #### Renita HENSON CMP, #### [facility] ([id number]) [address], [address] [place] [address] Glucose Glucometer (dC) [M ass/Vol]on 02-23-2025 Glucose [Mass/Vol] 265 mg/dL High 65-99 [facility] Glucose [Mass/Vol] 184 mg/dL High 65-99 [facility] Glucose [Mass/Vol] 200 mg/dL High 65-99 [facility] Glucose [Mass/Vol] 156 mg/dL High 65-99 [facility] Glucose [Mass/Vol] 170 mg/dL High 65-99 [facility] MAGNESIUMon 02-23-2025 Magnesium [Mass/Vol] 2.3 mg/dL Normal 1.8-2.6 [facility] Comment on above: Performed By: #### C BCA, CMP, 55003-4 #### [facility] ([id number]) [address], [address] [place] [address] Natriuretic peptide B [Mass/ Vol]on 02-23-2025 Natriuretic peptide B (Bld) [Mass/Vol] 37 pg/mL Normal <100.0 [facility] Comment on above: Performed By: #### C RUBEN HENSON, 79470-3 #### [facility] ([id number]) [address] [place] [address] XR CHEST 1 VWon 02-23-2025 XR CHEST [...] Espinosa MD on 02/23/2025 3:40 PM Normal [facility] BLOOD CULTUREon 02-22-2025 Bacteria identified Aer cx Nom (Bld) SPECIMEN NOTES SUBOPTIMAL VOLUME OF BLOOD COLLECTED, RESULTS MAY BE AFFECTED. CULTURE RESULTS NO GROWTH 5 DAYS Normal [facility] Comment on above: Performed By: #### C RUBEN HENSON, 92526-4 #### [facility] ([id number]) [address], [address] [place] [address] CBC AND AUTO DIFFon 02-23-20 25 ABSOLUTE BASOPHIL 0.1 X10E9/L Normal 0.0-0.2 [facility] Comment on above: Performed By: #### C RUBEN HENSON, 08957-8 #### [facility] ([id number]) [address], [address] [place] [address] Band form neutrophils/100 WBC (Bld) 2.9 % Normal [facility] Comment on above: Performed By: #### C NATIVIDAD CMP, 96111-3 #### [facility] ([id number]) [address], [address] [place] [address] Basophils/100 WBC (Bld) 1.9 % Normal [facility] Comment on above: Performed By: #### Renita HENSON CMP, #### [facility] ([id number]) [address], [address] [place] [address] Eosinophils (Bld) [#/Vol] 0.2 10*3/uL Normal 0.0-0.4 [facility] Comment on above: Performed By: #### Renita HENSON CMP, #### [facility] ([id number]) [address] [place] [address] Eosinophils/100 WBC (Bld) 3.8 % Normal [facility] Comment on above: Performed By: #### Renita HENSON CMP, #### [facility] ([id number]) [address] [place] [address] Erythrocyte distribution width (RBC) [Ratio] 17.4 % High 11.5-15.0 [facility] Comment on above: Performed By: #### Renita HENSON CMP, #### [facility] ([id number]) [address] [place] [address] Hematocrit (Bld) [Volume fraction] 26.5 % Low 35-47 [facility] Comment on above: Performed By: #### Renita HENSON CMP, #### [facility] ([id number]) [address] [place] [address] Hemoglobin (Bld) [Mass/Vol] 8.7 g/dL Low 11.7-15.5 [facility] Comment on above: Performed By: #### Renita HENSON CMP, #### [facility] ([id number]) [address], [address] [place] [address] LYMPHOCYTE, ATYPICAL 1.0 % Normal [facility] Comment on above: Performed By: #### C NATIVIDAD, CMP, #### [facility] ([id number]) [address] [place] [address] Lymphocytes (Bld) [#/Vol] 1.3 10*3/uL Normal 1.0-3.5 [facility] Comment on above: Performed By: #### Renita HENSON CMP, #### [facility] ([id number]) [address], [address] [place] [address] Lymphocytes/100 WBC (Bld) 20.0 % Normal [facility] Comment on above: Performed By: #### Renita HENSON CMP, #### [facility] ([id number]) [address] [place] [address] MCH (RBC) [Entitic mass] 27.6 pg Normal 27-34 [facility] Comment on above: Performed By: #### Renita HENSON CMP, #### [facility] ([id number]) [address] [place] [address] MCHC (RBC) [Mass/Vol] 32.9 g/dL Normal 32-36 [facility] Comment on above: Performed By: #### Renita HENSON CMP, #### [facility] ([id number]) [address] [place] [address] MCV (RBC) [Entitic vol] 84 fL Normal 80-100 [facility] Comment on above: Performed By: #### Renita HENSON CMP, #### [facility] ([id number]) [address] [place] [address] Metamyelocytes/10 0 WBC (Bld) 1.0 % Normal [facility] Comment on above: Performed By: #### C BCA, CMP, #### [facility] ([id number]) [address], [address] [place] [address] Monocytes (Bld) [#/Vol] 0.5 10*3/uL Normal 0-0.9 [facility] Comment on above: Performed By: #### C BCA, CMP, #### [facility] ([id number]) [address], [address] [place] [address] Monocytes/100 WBC (Bld) 8.6 % Normal [facility] Comment on above: Performed By: #### C NATIVIDAD, CMP, #### [facility] ([id number]) [address] [place] [address] MYELOCYTE 1.0 % Normal [facility] Comment on above: Performed By: #### C NATIVIDAD, CMP, #### [facility] ([id number]) [address] [place] [address] Neutrophils (Bld) [#/Vol] 3.9 10*3/uL Normal 1.5-6.6 [facility] Comment on above: Performed By: #### C NATIVIDAD, CMP, #### [facility] ([id number]) [address], [address] [place] [address] OVALOCYTE 1+ Abnormal NONE [facility] Comment on above: Performed By: #### C BCA, CMP, #### [facility] ([id number]) [address], [address] [place] [address] Platelet mean volume (Bld) [Entitic vol] 7.7 fL Normal 7-12 [facility] Comment on above: Performed By: #### C BCA, CMP, #### [facility] ([id number]) [address], [address] [place] [address] Platelets (Bld) [#/Vol] 367 10*3/uL Normal 150-450 [facility] Comment on above: Performed By: #### C NATIVIDAD CMP, #### [facility] ([id number]) [address], [address] [place] [address] POLYCHROMASIA 1+ Abnormal NONE [facility] Comment on above: Performed By: #### Renita HENSON CMP, #### [facility] ([id number]) [address] [place] [address] RBC COUNT 3.16 X10E12/L Low 3.80-5.20 [facility] Comment on above: Performed By: #### Renita HENSON CMP, #### [facility] ([id number]) [address] [place] [address] SEG NEUTROPHIL 59.8 % Normal [facility] Comment on above: Performed By: #### Renita HENSON CMP, #### [facility] ([id number]) [address], [address] [place] [address] WBC (Bld) [#/Vol] 6.1 10*3/uL Normal 4.0-11.0 [facility] Comment on above: Performed By: #### Renita HENSON, CMP, #### [facility] ([id number]) [address], [address] [place] [address] COMPREHENSIVE METABOLIC PANE Dickson 02-22-2025 Albumin [Mass/Vol] 3.4 g/dL Normal 3.2-5.3 [facility] Comment on above: Performed By: #### C NATIVIDAD, CMP, #### [facility] ([id number]) [address], [address] [place] [address] ALP [Catalytic activity/Vol] 105 U/L Normal 39-130 [facility] Comment on above: Performed By: #### C BCA, CMP, #### [facility] ([id number]) [address] [place] [address] ALT [Catalytic activity/Vol] 24 U/L Normal 0-31 [facility] Comment on above: Performed By: #### C BCA, CMP, #### [facility] ([id number]) [address] [place] [address] Anion gap [Moles/Vol] 7 mmol/L Normal 5-15 [facility] Comment on above: Performed By: #### C BCA, CMP, #### [facility] ([id number]) [address], [address] [place] [address] AST [Catalytic activity/Vol] 25 U/L Normal 0-41 [facility] Comment on above: Performed By: #### C BCA, CMP, #### [facility] ([id number]) [address] [place] [address] Bilirubin [Mass/Vol] 0.3 mg/dL Normal 0.3-1.2 [facility] Comment on above: Performed By: #### C BCA, CMP, #### [facility] ([id number]) [address] [place] [address] Calcium [Mass/Vol] 9.3 mg/dL Normal 8.5-10.5 [facility] Comment on above: Performed By: #### C BCA, CMP, #### [facility] ([id number]) [address] [place] [address] Chloride [Moles/Vol] 101 mmol/L Normal 98-109 [facility] Comment on above: Performed By: #### C BCA, CMP, #### [facility] ([id number]) [address], [address] [place] [address] CO2 [Moles/Vol] 30 mmol/L Normal 22-32 [facility] Comment on above: Performed By: #### C RUBEN HENSON, #### [facility] ([id number]) [address] [place] [address] Creatinine [Mass/Vol] 1.72 mg/dL High 0.40-1.00 [facility] Comment on above: Result Comment: METH OD TRACEABLE TO IDMS STANDARD Performed By: #### C RUBEN HENSON, #### [facility] ([id number]) [address] [place] [address] GFR/1.73 sq M.predicted among non-blacks MDRD (S/P/Bld) [Vol rate/Area] 30 mL/min/{1.73_m2} Low >59 [facility] Comment on above: Result Comment: Reported eGFR is based on the CKD-EPI 2020 equation that does not use a race coefficient. Performed By: #### C RUBEN HENSON, #### [facility] ([id number]) [address] [place] [address] Glucose [Mass/Vol] 67 mg/dL Normal 65-99 [facility] Comment on above: Performed By: #### C RUBEN HENSON, #### [facility] ([id number]) [address] [place] [address] Potassium [Moles/Vol] 4.6 mmol/L Normal 3.5-5.0 [facility] Comment on above: Performed By: #### C RUBEN HENSON, #### [facility] ([id number]) [address] [place] [address] Protein [Mass/Vol] 7.0 g/dL Normal 6.0-8.0 [facility] Comment on above: Performed By: #### Renita HENSON CMP, 66097-6 #### [facility] ([id number]) [address] [place] [address] Sodium [Moles/Vol] 138 mmol/L Normal 134-146 [facility] Comment on above: Performed By: #### Renita HENSON CMP, 06141-7 #### [facility] ([id number]) [address], [address] [place] [address] Urea nitrogen [Mass/Vol] 19 mg/dL Normal 5-27 [facility] Comment on above: Performed By: #### Renita HENSON CMP, 42858-5 #### [facility] ([id number]) [address] [place] [address] Glucose Glucometer (BldC) [M ass/Vol]on 02-22-2025 Glucose [Mass/Vol] 171 mg/dL High 65-99 [facility] Glucose [Mass/Vol] 209 mg/dL High 65-99 [facility] Glucose [Mass/Vol] 149 mg/dL High 65-99 [facility] Glucose [Mass/Vol] 79 mg/dL Normal 65-99 [facility] MAGNESIUMon 02-22-2025 Magnesium [Mass/Vol] 2.5 mg/dL Normal 1.8-2.6 [facility] Comment on above: Performed By: #### Renita HENSON CMP, #### [facility] ([id number]) [address] [place] [address] BLOOD CULTUREon 02-21-2025 Bacteria identified Aer cx Nom (Bld) SPECIMEN NOTES SUBOPTIMAL VOLUME OF BLOOD COLLECTED, RESULTS MAY BE AFFECTED. CULTURE RESULTS NO GROWTH 5 DAYS Normal [facility] Comment on above: Performed By: #### Renita HENSON CMP, 68286-4 #### [facility] ([id number]) [address] [place] [address] CBC AND AUTO DIFFon 02-22-20 25 Band form neutrophils/100 WBC (Bld) 1.0 % Normal [facility] Comment on above: Performed By: #### C FAITH, , CBCA ####[facility] ([id number])[address] [address] [place] [address] Eosinophils (Bld) [#/Vol] 0.2 10*3/uL Normal 0.0-0.4 [facility] Comment on above: Performed By: #### C FAITH, , CBCA ####[facility] ([id number])[address] [address] Eosinophils/100 WBC (Bld) 3.0 % Normal [facility] Comment on above: Performed By: #### Renita CUEVAS, , CBCA ####[facility] ([id number])[address] [address] Erythrocyte distribution width (RBC) [Ratio] 16.8 % High 11.5-15.0 [facility] Comment on above: Performed By: #### Renita CUEVAS, , CBCA ####[facility] ([id number])[address] [address] Hematocrit (Bld) [Volume fraction] 25.6 % Low 35-47 [facility] Comment on above: Performed By: #### Renita CUEVAS, , CBCA ####[facility] ([id number])[address] [address] Hemoglobin (Bld) [Mass/Vol] 8.5 g/dL Low 11.7-15.5 [facility] Comment on above: Performed By: #### Renita CUEVAS, , CBCA ####[facility] ([id number])[address] [address] HYPOCHROMIA 1+ Abnormal NONE [facility] Comment on above: Performed By: #### C FAITH, , CBCA ####[facility] ([id number])[address], [address] [place] [address] Lymphocytes (Bld) [#/Vol] 1.0 10*3/uL Normal 1.0-3.5 [facility] Comment on above: Performed By: #### Renita CUEVAS, , CBCA ####[facility] ([id number])[address], [place] [address] Lymphocytes/100 WBC (Bld) 15.0 % Normal [facility] Comment on above: Performed By: #### C FAITH, , CBCA ####[facility] ([id number])[address], [place] [address] MCH (RBC) [Entitic mass] 27.4 pg Normal 27-34 [facility] Comment on above: Performed By: #### C FAITH, , CBCA ####[facility] [facility] ([id number])[address], [address], [place] [address] MCHC (RBC) [Mass/Vol] 33.2 g/dL Normal 32-36 [facility] Comment on above: Performed By: #### C FAITH, , CBCA ####[facility] ([id number])[address], [address], [place] [address] MCV (RBC) [Entitic vol] 83 fL Normal 80-100 [facility] Comment on above: Performed By: #### Renita CUEVAS, , CBCA ####[facility] ([id number])[address], [address], [place] [address] Metamyelocytes/10 0 WBC (Bld) 2.0 % Normal [facility] Comment on above: Performed By: #### C FAITH, , CBCA ####[facility] ([id number])[address], [address] [address] Monocytes (Bld) [#/Vol] 0.7 10*3/uL Normal 0-0.9 [facility] Comment on above: Performed By: #### C FAITH, , CBCA ####[facility] ([id number])[address], [address] [address] Monocytes/100 WBC (Bld) 11.0 % Normal [facility] Comment on above: Performed By: #### C FAITH, , CBCA ####[facility] ([id number])[address], [address], [place] [address] MYELOCYTE 4.0 % Normal [facility] Comment on above: Performed By: #### C FAITH, , CBCA ####[facility] ([id number])[address] [address] [address] Neutrophils (Bld) [#/Vol] 4.4 10*3/uL Normal 1.5-6.6 [facility] Comment on above: Performed By: #### C FAITH, , CBCA ####[facility] ([id number])[address], [address] [address] Platelet mean volume (Bld) [Entitic vol] 8.2 fL Normal 7-12 [facility] Comment on above: Performed By: #### C FAITH, , CBCA ####[facility] ([id number])[address] [address] [address] Platelets (Bld) [#/Vol] 343 10*3/uL Normal 150-450 [facility] Comment on above: Performed By: #### C FAITH, , CBCA ####[facility] ([id number])[address], [address], [place] [address] POLYCHROMASIA 1+ Abnormal NONE [facility] Comment on above: Performed By: #### C FAITH, , CBCA ####[facility] ([id number])[address], [address], [place] [address] RBC COUNT 3.10 X10E12/L Low 3.80-5.20 [facility] Comment on above: Performed By: #### C FAITH, , CBCA ####[facility] ([id number])[address], [address], [place] [address] SEG NEUTROPHIL 64.0 % Normal [facility] Comment on above: Performed By: #### C FAITH, , CBCA ####[facility] ([id number])[address] [address] [place] [address] WBC (Bld) [#/Vol] 6.7 10*3/uL Normal 4.0-11.0 [facility] Comment on above: Performed By: #### C FAITH, , CBCA ####[facility] ([id number])[address] [address] [place] [address], [place] [address] COMPREHENSIVE METABOLIC PANE Dickson 02-21-2025 Albumin [Mass/Vol] 3.4 g/dL Normal 3.2-5.3 [facility] Comment on above: Performed By: #### C FAITH, , CBCA ####[facility] ([id number])[address], [address], [place] [address] ALP [Catalytic activity/Vol] 112 U/L Normal 39-130 [facility] Comment on above: Performed By: #### C FAITH, , CBCA ####[facility] ([id number])[address], [address], [place] [address] ALT [Catalytic activity/Vol] 22 U/L Normal 0-31 [facility] Comment on above: Performed By: #### C FAITH, , CBCA ####[facility] ([id number])[address], [address], [place] [address] Anion gap [Moles/Vol] 10 mmol/L Normal 5-15 [facility] Comment on above: Performed By: #### Renita CUEVAS, , CBCA ####[facility] ([id number])[address], [address], [place] [address] AST [Catalytic activity/Vol] 26 U/L Normal 0-41 [facility] Comment on above: Performed By: #### Renita CUEVAS, , CBCA ####[facility] ([id number])[address], [address], [place] [address] Bilirubin [Mass/Vol] 0.3 mg/dL Normal 0.3-1.2 [facility] Comment on above: Performed By: #### Renita CUEVAS, , CBCA ####[facility] ([id number])[address], [address], [place] [address] Calcium [Mass/Vol] 9.2 mg/dL Normal 8.5-10.5 [facility] Comment on above: Performed By: #### Renita CUEVAS, , CBCA ####[facility] ([id number])[address], [address], [place] [address] Chloride [Moles/Vol] 101 mmol/L Normal 98-109 [facility] Comment on above: Performed By: #### Renita CUEVAS, , CBCA ####[facility] ([id number])[address], [address], [place] [address] CO2 [Moles/Vol] 28 mmol/L Normal 22-32 [facility] Comment on above: Performed By: #### C FAITH, , CBCA ####[facility] ([id number])[address] [address] [place] [address] Creatinine [Mass/Vol] 1.50 mg/dL High 0.40-1.00 [facility] Comment on above: Result Comment: METH OD TRACEABLE TO IDMS STANDARD Performed By: #### C FAITH, , CBCA ####[facility] ([id number])[address] [address], [place] [address] GFR/1.73 sq M.predicted among non-blacks MDRD (S/P/Bld) [Vol rate/Area] 35 mL/min/{1.73_m2} Low >59 [facility] Comment on above: Result Comment: Reported eGFR is based on the CKD-EPI 2020 equation that does not use a race coefficient. Performed By: #### C FAITH, , CBCA ####[facility] ([id number])[address] [address] [place] [address] Glucose [Mass/Vol] 108 mg/dL High 65-99 [facility] Comment on above: Performed By: #### Renita CUEVAS, , CBCA ####[facility] ([id number])[address] [address] Potassium [Moles/Vol] 4.5 mmol/L Normal 3.5-5.0 [facility] Comment on above: Performed By: #### C FAITH, , CBCA ####[facility] ([id number])[address] [address] Protein [Mass/Vol] 6.6 g/dL Normal 6.0-8.0 [facility] Comment on above: Performed By: #### C FAITH, , CBCA ####[facility] ([id number])[address], [address] [place] [address] Sodium [Moles/Vol] 139 mmol/L Normal 134-146 [facility] Comment on above: Performed By: #### C MP, , CBCA ####[facility] ([id number])[address], [address] [place] [address] Urea nitrogen [Mass/Vol] 15 mg/dL Normal 5-27 [facility] Comment on above: Performed By: #### C MP, , CBCA ####[facility] ([id number])[address], [address] [place] [address] Glucose Glucometer (BldC) [M ass/Vol]on 02-21-2025 Glucose [Mass/Vol] 186 mg/dL High 65-99 [facility] Glucose [Mass/Vol] 189 mg/dL High 65-99 [facility] Glucose [Mass/Vol] 165 mg/dL High 65-99 [facility] Glucose [Mass/Vol] 123 mg/dL High 65-99 [facility] MAGNESIUMon 02-21-2025 Magnesium [Mass/Vol] 2.6 mg/dL Normal 1.8-2.6 [facility] Comment on above: Performed By: #### 1 239 ####[facility] ([id number])[address], [address] [place] [address] Magnesium [Mass/Vol] 1.8 mg/dL Normal 1.8-2.6 [facility] Comment on above: Performed By: #### C MP, , CBCA ####[facility] ([id number])[address], [address] [place] [address] CBC AND AUTO DIFFon 02-21-20 25 Band form neutrophils/100 WBC (Bld) 1.0 % Normal [facility] Comment on above: Performed By: #### C BCA, CMP, , 2157-04 ####[facility] ([id number])[address], [address], [place] [address] Eosinophils (Bld) [#/Vol] 0.3 10*3/uL Normal 0.0-0.4 [facility] Comment on above: Performed By: #### C BCA, CMP, , 2157-04 ####[facility] ([id number])[address] [address], [place] [address] Eosinophils/100 WBC (Bld) 4.0 % Normal [facility] Comment on above: Performed By: #### C BCA, CMP, , 2157-04 ####[facility] ([id number])[address] [address], [place] [address] Erythrocyte distribution width (RBC) [Ratio] 17.2 % High 11.5-15.0 [facility] Comment on above: Performed By: #### C BCA, CMP, , 2157-04 ####[facility] ([id number])[address] [address], [place] [address] FRAGMENT 1+ Abnormal NONE [facility] Comment on above: Performed By: #### C BCA, CMP, , 2157-04 ####[facility] ([id number])[address] [address], [place] [address] Hematocrit (Bld) [Volume fraction] 23.6 % Low 35-47 [facility] Comment on above: Performed By: #### C BCA, CMP, , 2157-04 ####[facility] ([id number])[address] [address] Hemoglobin (Bld) [Mass/Vol] 7.9 g/dL Low 11.7-15.5 [facility] Comment on above: Performed By: #### C BCA, CMP, 31975-[address]-04 ####[facility] ([id number])[address], [address], [place] [address] HYPOCHROMIA 1+ Abnormal NONE [facility] Comment on above: Performed By: #### C BCA, CMP, , 2157-04 ####[facility] ([id number])[address], [address] [place] [address] Lymphocytes (Bld) [#/Vol] 1.8 10*3/uL Normal 1.0-3.5 [facility] Comment on above: Performed By: #### C BCA, CMP, , 2157-04 ####[facility] ([id number])[address], [address] [place] [address] Lymphocytes/100 WBC (Bld) 23.2 % Normal [facility] Comment on above: Performed By: #### C BCA, CMP, , 2157-04 ####[facility] ([id number])[address], [address] [place] [address] MCH (RBC) [Entitic mass] 27.7 pg Normal 27-34 [facility] Comment on above: Performed By: #### C BCA, CMP, 2157-04 ####[facility] ([id number])[address], [address] [place] [address] MCHC (RBC) [Mass/Vol] 33.2 g/dL Normal 32-36 [facility] Comment on above: Performed By: #### C BCA, CMP, 2157-04 ####[facility] ([id number])[address], [address] [place] [address] MCV (RBC) [Entitic vol] 83 fL Normal 80-100 [facility] Comment on above: Performed By: #### C BCA, CMP, , 2157-04 ####[facility] ([id number])[address], [address] [address] Metamyelocytes/10 0 WBC (Bld) 1.0 % Normal [facility] Comment on above: Performed By: #### C BCA, CMP, , 2157-04 ####[facility] ([id number])[address], [address] [address] Monocytes (Bld) [#/Vol] 0.9 10*3/uL Normal 0-0.9 [facility] Comment on above: Performed By: #### C BCA, CMP, , 2157-04 ####[facility] ([id number])[address], [address], [place] [address] Monocytes/100 WBC (Bld) 12.1 % Normal [facility] Comment on above: Performed By: #### C BCA, CMP, , 2157-04 ####[facility] ([id number])[address] [address], [place] [address] MYELOCYTE 3.0 % Normal [facility] Comment on above: Performed By: #### C BCA, CMP, , 2157-04 ####[facility] ([id number])[address], [address] [address] Neutrophils (Bld) [#/Vol] 4.4 10*3/uL Normal 1.5-6.6 [facility] Comment on above: Performed By: #### C BCA, CMP, , 2157-04 ####[facility] ([id number])[address], [address] [address] Platelet mean volume (Bld) [Entitic vol] 8.4 fL Normal 7-12 [facility] Comment on above: Performed By: #### C BCA, CMP, , 2157-04 ####[facility] ([id number])[address], [address], [place] [address] Platelets (Bld) [#/Vol] 320 10*3/uL Normal 150-450 [facility] Comment on above: Performed By: #### C BCA, CMP, , 2157-04 ####[facility] ([id number])[address], [address], [place] [address] RBC COUNT 2.83 X10E12/L Low 3.80-5.20 [facility] Comment on above: Performed By: #### C BCA, CMP, , 2157-04 ####[facility] ([id number])[address], [address], [place] [address] SEG NEUTROPHIL 55.7 % Normal [facility] Comment on above: Performed By: #### C BCA, CMP, , 2157-04 ####[facility] ([id number])[address] [address] [place] [address] WBC (Bld) [#/Vol] 7.8 10*3/uL Normal 4.0-11.0 [facility] Comment on above: Performed By: #### C BCA, CMP, , 2157-04 ####[facility] ([id number])[address], [address] [place] [address] CK [Catalytic activity/Vol]o n 02-20-2025 CPK 39 U/L Normal 24-170 [facility] Comment on above: Performed By: #### C BCA, CMP, , 2157-04 ####[facility] ([id number])[address], [address], [place] [address] COMPREHENSIVE METABOLIC PANE Dickson 02-20-2025 Albumin [Mass/Vol] 3.2 g/dL Normal 3.2-5.3 [facility] Comment on above: Performed By: #### C BCA, CMP, , 2157-04 ####[facility] ([id number])[address], [address], [place] [address] ALP [Catalytic activity/Vol] 106 U/L Normal 39-130 [facility] Comment on above: Performed By: #### C BCA, CMP, , 2157-04 ####[facility] ([id number])[address], [address], [place] [address] ALT [Catalytic activity/Vol] 22 U/L Normal 0-31 [facility] Comment on above: Performed By: #### C BCA, CMP, , 2157-04 ####[facility] ([id number])[address], [address], [place] [address] Anion gap [Moles/Vol] 9 mmol/L Normal 5-15 [facility] Comment on above: Performed By: #### C BCA, CMP, , 2157-04 ####[facility] ([id number])[address], [address], [place] [address] AST [Catalytic activity/Vol] 24 U/L Normal 0-41 [facility] Comment on above: Performed By: #### C BCA, CMP, , 2157-04 ####[facility] ([id number])[address], [address], [place] [address] Bilirubin [Mass/Vol] 0.3 mg/dL Normal 0.3-1.2 [facility] Comment on above: Performed By: #### C BCA, CMP, , 2157-04 ####[facility] ([id number])[address], [address], [place] [address] Calcium [Mass/Vol] 9.0 mg/dL Normal 8.5-10.5 [facility] Comment on above: Performed By: #### C BCA, CMP, , 2157-04 ####[facility] ([id number])[address], [address], [place] [address] Chloride [Moles/Vol] 101 mmol/L Normal 98-109 [facility] Comment on above: Performed By: #### C BCA, CMP, , 2157-04 ####[facility] ([id number])[address], [address], [place] [address] CO2 [Moles/Vol] 29 mmol/L Normal 22-32 [facility] Comment on above: Performed By: #### C BCA, CMP, , 2157-04 ####[facility] ([id number])[address], [address], [place] [address] Creatinine [Mass/Vol] 1.45 mg/dL High 0.40-1.00 [facility] Comment on above: Result Comment: METH OD TRACEABLE TO IDMS STANDARD Performed By: #### C BCA, CMP, , 2157-04 ####[facility] ([id number])[address] [address] GFR/1.73 sq M.predicted among non-blacks MDRD (S/P/Bld) [Vol rate/Area] 37 mL/min/{1.73_m2} Low >59 [facility] Comment on above: Result Comment: Reported eGFR is based on the CKD-EPI 1 equation that does not use a race coefficient. Performed By: #### C BCA, CMP, , 2157-04 ####[facility] ([id number])[address] [address] [place] [address] Glucose [Mass/Vol] 110 mg/dL High 65-99 [facility] Comment on above: Performed By: #### C BCA, CMP, , 2157-04 ####[facility] ([id number])[address], [address], [place] [address] Potassium [Moles/Vol] 4.6 mmol/L Normal 3.5-5.0 [facility] Comment on above: Performed By: #### C BCA, CMP, , 2157-04 ####[facility] ([id number])[address], [address], [place] [address] Protein [Mass/Vol] 6.4 g/dL Normal 6.0-8.0 [facility] Comment on above: Performed By: #### C BCA, CMP, , 2157-04 ####[facility] ([id number])[address], [address] [place] [address] Sodium [Moles/Vol] 139 mmol/L Normal 134-146 [facility] Comment on above: Performed By: #### Renita BCA, CMP, , 2157-04 ####[facility] ([id number])[address], [address] [place] [address] Urea nitrogen [Mass/Vol] 14 mg/dL Normal 5-27 [facility] Comment on above: Performed By: #### C BCA, CMP, , 2157-04 ####[facility] ([id number])[address], [address] [place] [address] Glucose Glucometer (BldC) [M ass/Vol]on 02-20-2025 Glucose [Mass/Vol] 253 mg/dL High 65-99 [facility] Glucose [Mass/Vol] 145 mg/dL High 65-99 [facility] Glucose [Mass/Vol] 237 mg/dL High 65-99 [facility] Glucose [Mass/Vol] 143 mg/dL High 65-99 [facility] MAGNESIUMon 02-20-2025 Magnesium [Mass/Vol] 1.9 mg/dL Normal 1.8-2.6 [facility] Comment on above: Performed By: #### C BCA, CMP, 16590-7, 2157-6 ####[facility] ([id number])[address], [address] [address] BLOOD CULTUREon 02-19-2025 Bacteria identified Aer cx Nom (Bld) SPECIMEN NOTES SUBOPTIMAL VOLUME OF BLOOD COLLECTED, RESULTS MAY BE AFFECTED. CULTURE RESULTS STAPHYLOCOCCUS AUREUS METHICILLIN RESISTANT FOR SUSCEPTIBILITY, SEE PREVIOUS REPORT. Normal [facility] Comment on above: Performed By: #### 1 7928-3 ####[facility] ([id number])[address], [address] [address] Bacteria identified Aer cx Nom (Bld) SPECIMEN NOTES SUBOPTIMAL VOLUME OF BLOOD COLLECTED, RESULTS MAY BE AFFECTED. CULTURE RESULTS STAPHYLOCOCCUS AUREUS METHICILLIN RESISTANT FOR SUSCEPTIBILITY, SEE PREVIOUS REPORT. Normal [facility] Comment on above: Performed By: #### 1 7928-3 ####[facility] ([id number])[address] [address] CBC AND AUTO DIFFon 02-20-20 25 Eosinophils (Bld) [#/Vol] 0.1 10*3/uL Normal 0.0-0.4 [facility] Comment on above: Performed By: #### 2 0578-1 #### [facility] ([id number]) [address] [address] Eosinophils/100 WBC (Bld) 1.0 % Normal [facility] Comment on above: Performed By: #### 2 0578-1 #### [facility] ([id number]) [address], [address] [address] Erythrocyte distribution width (RBC) [Ratio] 17.1 % High 11.5-15.0 [facility] Comment on above: Performed By: #### 2 0578-1 #### [facility] ([id number]) [address], [address] [address] Hematocrit (Bld) [Volume fraction] 24.1 % Low 35-47 [facility] Comment on above: Performed By: #### 2 0578-1 #### [facility] ([id number]) [address], [address] [place] [address] Hemoglobin (Bld) [Mass/Vol] 7.9 g/dL Low 11.7-15.5 [facility] Comment on above: Performed By: #### 2 0578-1 #### [facility] ([id number]) [address], [facility] [address] [place] [address] Lymphocytes (Bld) [#/Vol] 1.8 10*3/uL Normal 1.0-3.5 [facility] Comment on above: Performed By: #### 2 0578-1 #### [facility] ([id number]) [address], [address] [place] [address] Lymphocytes/100 WBC (Bld) 21.0 % Normal [facility] Comment on above: Performed By: #### 2 0578-1 #### [facility] ([id number]) [address], [address] [place] [address] MCH (RBC) [Entitic mass] 27.3 pg Normal 27-34 [facility] Comment on above: Performed By: #### 2 0578-1 #### [facility] ([id number]) [address], [address] [place] [address] MCHC (RBC) [Mass/Vol] 32.7 g/dL Normal 32-36 [facility] Comment on above: Performed By: #### 2 0578-1 #### [facility] ([id number]) [address], [address] [place] [address] MCV (RBC) [Entitic vol] 84 fL Normal 80-100 [facility] Comment on above: Performed By: #### 2 0578-1 #### [facility] ([id number]) [address] [place] [address] Monocytes (Bld) [#/Vol] 0.6 10*3/uL Normal 0-0.9 [facility] Comment on above: Performed By: #### 2 0578-1 #### [facility] ([id number]) [address] [place] [address] Monocytes/100 WBC (Bld) 7.0 % Normal [facility] Comment on above: Performed By: #### 2 0578-1 #### [facility] ([id number]) [address], [address] [place] [address] MYELOCYTE 2.0 % Normal [facility] Comment on above: Performed By: #### 2 0578-1 #### [facility] ([id number]) [address], [address] [place] [address] Neutrophils (Bld) [#/Vol] 6.1 10*3/uL Normal 1.5-6.6 [facility] Comment on above: Performed By: #### 2 0578-1 #### [facility] ([id number]) [address], [address] [place] [address] OVALOCYTE 1+ Abnormal NONE [facility] Comment on above: Performed By: #### 2 0578-1 #### [facility] ([id number]) [address] [place] [address] Platelet mean volume (Bld) [Entitic vol] 8.3 fL Normal 7-12 [facility] Comment on above: Performed By: #### 2 0578-1 #### [facility] ([id number]) [address], [address] [place] [address] Platelets (Bld) [#/Vol] 288 10*3/uL Normal 150-450 [facility] Comment on above: Performed By: #### 2 0578-1 #### [facility] ([id number]) [address], [address] [place] [address] POLYCHROMASIA 1+ Abnormal NONE [facility] Comment on above: Performed By: #### 2 0578-1 #### [facility] ([id number]) [address], [address] [place] [address] RBC COUNT 2.89 X10E12/L Low 3.80-5.20 [facility] Comment on above: Performed By: #### 2 0578-1 #### [facility] ([id number]) [address], [address] [place] [address] SEG NEUTROPHIL 69.0 % Normal [facility] Comment on above: Performed By: #### 2 0578-1 #### [facility] ([id number]) [address], [address] [place] [address] WBC (Bld) [#/Vol] 8.8 10*3/uL Normal 4.0-11.0 [facility] Comment on above: Performed By: #### 2 0578-1 #### [facility] ([id number]) [address], [address] [place] [address] COMPREHENSIVE METABOLIC PANE Dickson 02-19-2025 Albumin [Mass/Vol] 3.2 g/dL Normal 3.2-5.3 [facility] Comment on above: Performed By: #### 2 0578-1 #### [facility] ([id number]) [address], [address] [place] [address] ALP [Catalytic activity/Vol] 112 U/L Normal 39-130 [facility] [facility] Comment on above: Performed By: #### 2 0578-1 #### [facility] ([id number]) [address], [address] [place] [address] ALT [Catalytic activity/Vol] 23 U/L Normal 0-31 [facility] Comment on above: Performed By: #### 2 0578-1 #### [facility] ([id number]) [address], [address] [place] [address] Anion gap [Moles/Vol] 8 mmol/L Normal 5-15 [facility] Comment on above: Performed By: #### 2 0578-1 #### [facility] ([id number]) [address], [address] [place] [address] AST [Catalytic activity/Vol] 20 U/L Normal 0-41 [facility] Comment on above: Performed By: #### 2 0578-1 #### [facility] ([id number]) [address], [address] [place] [address] Bilirubin [Mass/Vol] 0.3 mg/dL Normal 0.3-1.2 [facility] Comment on above: Performed By: #### 2 0578-1 #### [facility] ([id number]) [address], [address] [place] [address] Calcium [Mass/Vol] 9.3 mg/dL Normal 8.5-10.5 [facility] Comment on above: Performed By: #### 2 0578-1 #### [facility] ([id number]) [address], [address] [place] [address] Chloride [Moles/Vol] 103 mmol/L Normal 98-109 [facility] Comment on above: Performed By: #### 2 0578-1 #### [facility] ([id number]) [address], [address] [place] [address] CO2 [Moles/Vol] 30 mmol/L Normal 22-32 [facility] Comment on above: Performed By: #### 2 0578-1 #### [facility] ([id number]) [address], [address] [place] [address] Creatinine [Mass/Vol] 1.30 mg/dL High 0.40-1.00 [facility] Comment on above: Result Comment: METH OD TRACEABLE TO IDMS STANDARD Performed By: #### 2 0578-1 #### [facility] ([id number]) [address], [address] [place] [address] GFR/1.73 sq M.predicted among non-blacks MDRD (S/P/Bld) [Vol rate/Area] 42 mL/min/{1.73_m2} Low >59 [facility] Comment on above: Result Comment: Reported eGFR is based on the CKD-EPI 2020 equation that does not use a race coefficient. Performed By: #### 2 0578-1 #### [facility] ([id number]) [address], [address] [place] [address] Glucose [Mass/Vol] 95 mg/dL Normal 65-99 [facility] Comment on above: Performed By: #### 2 0578-1 #### [facility] ([id number]) [address], [address] [place] [address] Potassium [Moles/Vol] 4.3 mmol/L Normal 3.5-5.0 [facility] Comment on above: Performed By: #### 2 0578-1 #### [facility] ([id number]) [address], [address] [place] [address] Protein [Mass/Vol] 6.2 g/dL Normal 6.0-8.0 [facility] Comment on above: Performed By: #### 2 0578-1 #### [facility] ([id number]) [address] [address] [place] [address] Sodium [Moles/Vol] 141 mmol/L Normal 134-146 [facility] Comment on above: Performed By: #### 2 0578-1 #### [facility] ([id number]) [address] [address] [place] [address] Urea nitrogen [Mass/Vol] 13 mg/dL Normal 5-27 [facility] Comment on above: Performed By: #### 2 0578-1 #### [facility] ([id number]) [address], [address] [place] [address] Glucose Glucometer (BldC) [M ass/Vol]on 02-19-2025 Glucose [Mass/Vol] 202 mg/dL High 65-99 [facility] Glucose [Mass/Vol] 171 mg/dL High 65-99 [facility] Glucose [Mass/Vol] 200 mg/dL High 65-99 [facility] Glucose [Mass/Vol] 100 mg/dL High 65-99 [facility] MAGNESIUMon 02-19-2025 Magnesium [Mass/Vol] 2.1 mg/dL Normal 1.8-2.6 [facility] Comment on above: Performed By: #### 2 0578-1 #### [facility] ([id number]) [address], [address] [place] [address] Vancomycin peak [Mass/Vol]on 02-19-2025 VANCOMYCIN PEAK 36.7 ug/mL Normal 30.00-40.0 0 [facility] Comment on above: Performed By: #### 4 090-7 ####[facility] ([id number])[address], [address], [place] [address] Vancomycin trough [Mass/Vol] on 02-19-2025 VANCOMYCIN TROUGH 22.2 ug/mL High 5.0-20.0 [facility] Comment on above: Performed By: #### 2 0578-1 #### [facility] ([id number]) [address], [address] [place] [address] CBC AND AUTO DIFFon 02-19-20 25 ACANTHOCYTE 1+ Abnormal NONE [facility] Comment on above: Performed By: #### C BCA, CMP, 61179-6 #### [facility] ([id number]) [address], [address] [place] [address] Eosinophils (Bld) [#/Vol] 0.2 10*3/uL Normal 0.0-0.4 [facility] Comment on above: Performed By: #### C NATIVIDAD CMP, 64678-3 #### [facility] ([id number]) [address], [facility] [address] [place] [address] Eosinophils/100 WBC (Bld) 3.0 % Normal [facility] Comment on above: Performed By: #### Renita HENSON CMP, #### [facility] ([id number]) [address], [facility] [address] [place] [address] Erythrocyte distribution width (RBC) [Ratio] 16.7 % High 11.5-15.0 [facility] Comment on above: Performed By: #### Reniat HENSON CMP, #### [facility] ([id number]) [address], [address] [place] [address] Hematocrit (Bld) [Volume fraction] 22.6 % Low 35-47 [facility] Comment on above: Performed By: #### Renita HENSON CMP, #### [facility] ([id number]) [address], [facility] [address] [place] [address] Hemoglobin (Bld) [Mass/Vol] 7.4 g/dL Low 11.7-15.5 [facility] Comment on above: Performed By: #### C NATIVIDAD, CMP, #### [facility] ([id number]) [address], [facility] [address] [place] [address] Lymphocytes (Bld) [#/Vol] 1.8 10*3/uL Normal 1.0-3.5 [facility] Comment on above: Performed By: #### Renita HENSON CMP, #### [facility] ([id number]) [address], [address] [place] [address] Lymphocytes/100 WBC (Bld) 24.2 % Normal [facility] Comment on above: Performed By: #### Renita HENSON, CMP, #### [facility] ([id number]) [address], [address] [place] [address] MCH (RBC) [Entitic mass] 27.6 pg Normal 27-34 [facility] Comment on above: Performed By: #### C NATIVIDAD, CMP, #### [facility] ([id number]) [address], [address] [place] [address] MCHC (RBC) [Mass/Vol] 33.0 g/dL Normal 32-36 [facility] Comment on above: Performed By: #### Renita HENSON, CMP, #### [facility] ([id number]) [address], [address] [place] [address] MCV (RBC) [Entitic vol] 84 fL Normal 80-100 [facility] Comment on above: Performed By: #### Renita HENSON, CMP, #### [facility] ([id number]) [address], [address] [place] [address] Monocytes (Bld) [#/Vol] 0.9 10*3/uL Normal 0-0.9 [facility] Comment on above: Performed By: #### Renita HENSON, CMP, #### [facility] ([id number]) [address], [address] [place] [address] Monocytes/100 WBC (Bld) 12.1 % Normal [facility] Comment on above: Performed By: #### Renita BCA, CMP, #### [facility] ([id number]) [address], [address] [place] [address] MYELOCYTE 1.0 % Normal [facility] Comment on above: Performed By: #### C NATIVIDAD, CMP, #### [facility] ([id number]) [address], [address] [place] [address] Neutrophils (Bld) [#/Vol] 4.5 10*3/uL Normal 1.5-6.6 [facility] Comment on above: Performed By: #### Renita HENSON, CMP, #### [facility] ([id number]) [address], [address] [place] [address] NUCLEATED RBC 1.0 /100 WBC Normal 0.0-1.0 [facility] Comment on above: Performed By: #### Renita HENSON, CMP, #### [facility] ([id number]) [address], [address] [place] [address] Platelet mean volume (Bld) [Entitic vol] 8.5 fL Normal 7-12 [facility] Comment on above: Performed By: #### Renita HENSON, CMP, #### [facility] ([id number]) [address], [address] [place] [address] Platelets (Bld) [#/Vol] 262 10*3/uL Normal 150-450 [facility] Comment on above: Performed By: #### Renita HENSON, CMP, #### [facility] ([id number]) [address], [address] [place] [address] RBC COUNT 2.70 X10E12/L Low 3.80-5.20 [facility] Comment on above: Performed By: #### Renita BCA, CMP, #### [facility] ([id number]) [address], [address] [place] [address] SEG NEUTROPHIL 59.7 % Normal [facility] Comment on above: Performed By: #### Renita BCA, CMP, #### [facility] ([id number]) [address], [address] [place] [address] WBC (Bld) [#/Vol] 7.5 10*3/uL Normal 4.0-11.0 [facility] Comment on above: Performed By: #### C BCA, CMP, 10117-6 #### [facility] ([id number]) [address], [address] [place] [address] COMPREHENSIVE METABOLIC PANE Dickson 02-18-2025 Albumin [Mass/Vol] 3.1 g/dL Low 3.2-5.3 [facility] Comment on above: Performed By: #### C BCA, CMP, 33897-0 #### [facility] ([id number]) [address], [address] [place] [address] ALP [Catalytic activity/Vol] 93 U/L Normal 39-130 [facility] Comment on above: Performed By: #### C BCA, CMP, 34896-2 #### [facility] ([id number]) [address], [address] [place] [address] ALT [Catalytic activity/Vol] 22 U/L Normal 0-31 [facility] Comment on above: Performed By: #### C BCA, CMP, #### [facility] ([id number]) [address], [address] [place] [address] Anion gap [Moles/Vol] 7 mmol/L Normal 5-15 [facility] Comment on above: Performed By: #### C BCA, CMP, #### [facility] ([id number]) [address], [address] [place] [address] AST [Catalytic activity/Vol] 18 U/L Normal 0-41 [facility] Comment on above: Performed By: #### C BCA, CMP, #### [facility] ([id number]) [address], [address] [place] [address] Bilirubin [Mass/Vol] 0.3 mg/dL Normal 0.3-1.2 [facility] Comment on above: Performed By: #### C BCA, [facility], #### [facility] ([id number]) [address], [address] [place] [address] Calcium [Mass/Vol] 9.0 mg/dL Normal 8.5-10.5 [facility] Comment on above: Performed By: #### C BCA, [facility], #### [facility] ([id number]) [address], [address] [place] [address] Chloride [Moles/Vol] 105 mmol/L Normal 98-109 [facility] Comment on above: Performed By: #### Renita HENSON CMP, #### [facility] ([id number]) [address], [address] [place] [address] CO2 [Moles/Vol] 29 mmol/L Normal 22-32 [facility] Comment on above: Performed By: #### C BCA, [facility], #### [facility] ([id number]) [address], [address] [place] [address] Creatinine [Mass/Vol] 1.30 mg/dL High 0.40-1.00 [facility] Comment on above: Result Comment: METH OD TRACEABLE TO IDMS STANDARD Performed By: #### C BCA, CMP, #### [facility] ([id number]) [address], [address] [place] [address] GFR/1.73 sq M.predicted among non-blacks MDRD (S/P/Bld) [Vol rate/Area] 42 mL/min/{1.73_m2} Low >59 [facility] Comment on above: Result Comment: Reported eGFR is based on the CKD-EPI 2020 equation that does not use a race coefficient. Performed By: #### C BCA, CMP, #### [facility] ([id number]) [address], [address] [place] [address] Glucose [Mass/Vol] 100 mg/dL High 65-99 [facility] Comment on above: Performed By: #### C BCA, CMP, #### [facility] ([id number]) [address], [address] [place] [address] Potassium [Moles/Vol] 4.1 mmol/L Normal 3.5-5.0 [facility] Comment on above: Performed By: #### C BCA, CMP, #### [facility] ([id number]) [address], [address] [place] [address] Protein [Mass/Vol] 6.0 g/dL Normal 6.0-8.0 [facility] Comment on above: Performed By: #### C BCA, CMP, #### [facility] ([id number]) [address], [address] [place] [address] Sodium [Moles/Vol] 141 mmol/L Normal 134-146 [facility] Comment on above: Performed By: #### C BCA, CMP, #### [facility] ([id number]) [address], [address] [place] [address] Urea nitrogen [Mass/Vol] 16 mg/dL Normal 5-27 [facility] Comment on above: Performed By: #### C BCA, CMP, 68001-7 #### [facility] ([id number]) [address], [address] [place] [address] Glucose Glucometer (BldC) [M ass/Vol]on 02-18-2025 Glucose [Mass/Vol] 143 mg/dL High 65-99 [facility] Glucose [Mass/Vol] 222 mg/dL High 65-99 [facility] Glucose [Mass/Vol] 247 mg/dL High 65-99 [facility] Glucose [Mass/Vol] 110 mg/dL High 65-99 [facility] MAGNESIUMon 02-18-2025 Magnesium [Mass/Vol] 2.2 mg/dL Normal 1.8-2.6 [facility] Comment on above: Performed By: #### 2 0578-1 #### [facility] ([id number]) [address], [address] [place] [address] Magnesium [Mass/Vol] 1.9 mg/dL Normal 1.8-2.6 [facility] Comment on above: Performed By: #### Renita EHNSON CMP, 03514-2 #### [facility] ([id number]) [address], [address] [place] [address] BLOOD CULTUREon 02-17-2025 Bacteria identified Aer cx Nom (Bld) SPECIMEN NOTES ONLY AEROBIC BOTTLE RECEIVED, SUBOPTIMAL VOLUME OF BLOOD COLLECTED, RESULTS MAY BE AFFECTED SUBOPTIMAL VOLUME OF BLOOD COLLECTED, RESULTS MAY BE AFFECTED. CULTURE RESULTS NO GROWTH 5 DAYS Normal [facility] Comment on above: Performed By: #### Renita HENSON CMP, #### [facility] ([id number]) [address], [address] [place] [address] Bacteria identified Aer cx Nom (Bld) SPECIMEN [...] 0.25 F DOXYCYCLINE R >=16 F Resistant [facility] Comment on above: Performed By: #### Renita HENSON CMP, #### [facility] ([id number]) [address], [address] [place] [address] CBC AND AUTO DIFFon 02-18-20 25 ABSOLUTE BASOPHIL 0.0 X10E9/L Normal 0.0-0.2 [facility] Comment on above: Performed By: #### Renita HENSON, CMP, #### [facility] ([id number]) [address], [address] [place] [address] ABSOLUTE NEUTROPHIL 4.7 X10E9/L Normal 1.5-6.6 [facility] Comment on above: Performed By: #### Renita HENSON, CMP, #### [facility] ([id number]) [address] [place] [address] Basophils/100 WBC (Bld) 0.5 % Normal [facility] Comment on above: Performed By: #### Renita HENSON, CMP, #### [facility] ([id number]) [address] [place] [address] Eosinophils (Bld) [#/Vol] 0.3 10*3/uL Normal 0.0-0.4 [facility] Comment on above: Performed By: #### Renita HENSON, CMP, #### [facility] ([id number]) [address] [place] [address] Eosinophils/100 WBC (Bld) 4.4 % Normal [facility] Comment on above: Performed By: #### Renita HENSON, CMP, #### [facility] ([id number]) [address], [address] [place] [address] Erythrocyte distribution width (RBC) [Ratio] 16.8 % High 11.5-15.0 [facility] Comment on above: Performed By: #### Renita HENSON, CMP, #### [facility] ([id number]) [address], [address] [place] [address] Hematocrit (Bld) [Volume fraction] 23.6 % Low 35-47 [facility] Comment on above: Performed By: #### Renita HENSON [facility], #### [facility] ([id number]) [address], [address] [place] [address] Hemoglobin (Bld) [Mass/Vol] 7.8 g/dL Low 11.7-15.5 [facility] Comment on above: Performed By: #### Renita HENSON CMP, #### [facility] ([id number]) [address], [facility] [address] [place] [address] Lymphocytes (Bld) [#/Vol] 1.5 10*3/uL Normal 1.0-3.5 [facility] Comment on above: Performed By: #### Renita HENSON CMP, #### [facility] ([id number]) [address] [place] [address] Lymphocytes/100 WBC (Bld) 19.4 % Normal [facility] Comment on above: Performed By: #### Renita HENSON, [facility], #### [facility] ([id number]) [address] [place] [address] MCH (RBC) [Entitic mass] 27.8 pg Normal 27-34 [facility] Comment on above: Performed By: #### Renita HENSON, CMP, #### [facility] ([id number]) [address] [place] [address] MCHC (RBC) [Mass/Vol] 32.9 g/dL Normal 32-36 [facility] Comment on above: Performed By: #### Renita HENSON CMP, #### [facility] ([id number]) [address] [place] [address] MCV (RBC) [Entitic vol] 84 fL Normal 80-100 [facility] Comment on above: Performed By: #### Renita HENSON CMP, #### [facility] ([id number]) [address] [place] [address] Monocytes (Bld) [#/Vol] 1.1 10*3/uL High 0-0.9 [facility] Comment on above: Performed By: #### Renita HENSON CMP, #### [facility] ([id number]) [address], [facility] [address] [place] [address] Monocytes/100 WBC (Bld) 14.7 % Normal [facility] Comment on above: Performed By: #### Renita HENSON CMP, #### [facility] ([id number]) [address] [place] [address] Neutrophils/100 WBC (Bld) 61.0 % Normal [facility] Comment on above: Performed By: #### Renita HENSON CMP, #### [facility] ([id number]) [address] [place] [address] Platelet mean volume (Bld) [Entitic vol] 8.4 fL Normal 7-12 [facility] Comment on above: Performed By: #### Renita HENSON CMP, #### [facility] ([id number]) [address] [place] [address] Platelets (Bld) [#/Vol] 243 10*3/uL Normal 150-450 [facility] Comment on above: Performed By: #### Renita HENSON CMP, #### [facility] ([id number]) [address] [place] [address] RBC COUNT 2.80 X10E12/L Low 3.80-5.20 [facility] Comment on above: Performed By: #### C BCA, CMP, 23487-4 #### [facility] ([id number]) [address] [place] [address] WBC (Bld) [#/Vol] 7.8 10*3/uL Normal 4.0-11.0 [facility] Comment on above: Performed By: #### C BCA, CMP, #### [facility] ([id number]) [address], [address] [place] [address] COMPREHENSIVE METABOLIC PANE Dickson 02-17-2025 Albumin [Mass/Vol] 3.2 g/dL Normal 3.2-5.3 [facility] Comment on above: Performed By: #### C BCA, CMP, 67967-8 #### [facility] ([id number]) [address] [place] [address] ALP [Catalytic activity/Vol] 98 U/L Normal 39-130 [facility] Comment on above: Performed By: #### C BCA, CMP, 99883-7 #### [facility] ([id number]) [address] [place] [address] ALT [Catalytic activity/Vol] 33 U/L High 0-31 [facility] Comment on above: Performed By: #### C BCA, CMP, #### [facility] ([id number]) [address], [address] [place] [address] Anion gap [Moles/Vol] 7 mmol/L Normal 5-15 [facility] Comment on above: Performed By: #### C BCA, CMP, #### [facility] ([id number]) [address], [address] [place] [address] AST [Catalytic activity/Vol] 32 U/L Normal 0-41 [facility] Comment on above: Performed By: #### C BCA, CMP, #### [facility] ([id number]) [address], [address] [place] [address] Bilirubin [Mass/Vol] 0.2 mg/dL Low 0.3-1.2 [facility] Comment on above: Performed By: #### C BCA, [facility], #### [facility] ([id number]) [address] [place] [address] Calcium [Mass/Vol] 9.1 mg/dL Normal 8.5-10.5 [facility] Comment on above: Performed By: #### C BCA, [facility], #### [facility] ([id number]) [address], [address] [place] [address] Chloride [Moles/Vol] 104 mmol/L Normal 98-109 [facility] Comment on above: Performed By: #### C BCA, [facility], #### [facility] ([id number]) [address] [place] [address] CO2 [Moles/Vol] 27 mmol/L Normal 22-32 [facility] Comment on above: Performed By: #### C BCA, [facility], #### [facility] ([id number]) [address] [place] [address] Creatinine [Mass/Vol] 1.16 mg/dL High 0.40-1.00 [facility] Comment on above: Result Comment: METH OD TRACEABLE TO IDMS STANDARD Performed By: #### C BCA, [facility], #### [facility] ([id number]) [address] [place] [address] GFR/1.73 sq M.predicted among non-blacks MDRD (S/P/Bld) [Vol rate/Area] 48 mL/min/{1.73_m2} Low >59 [facility] Comment on above: Result Comment: Reported eGFR is based on the CKD-EPI 2020 equation that does not use a race coefficient. Performed By: #### C RUBEN HENSON, #### [facility] ([id number]) [address], [address] [place] [address] Glucose [Mass/Vol] 159 mg/dL High 65-99 [facility] Comment on above: Performed By: #### Renita HENSON CMP, #### [facility] ([id number]) [address], [facility] [address] [place] [address] Potassium [Moles/Vol] 4.3 mmol/L Normal 3.5-5.0 [facility] Comment on above: Performed By: #### Renita HENSON CMP, [id number] #### [facility] ([id number]) [address], [address] [place] [address] Protein [Mass/Vol] 6.2 g/dL Normal 6.0-8.0 [facility] Comment on above: Performed By: #### Renita HENSON CMP, [id number] #### [facility] ([id number]) [address], [address] [place] [address] Sodium [Moles/Vol] 138 mmol/L Normal 134-146 [facility] Comment on above: Performed By: #### Renita HENSON CMP, #### [facility] ([id number]) [address], [address] [place] [address] Urea nitrogen [Mass/Vol] 23 mg/dL Normal 5-27 [facility] Comment on above: Performed By: #### Renita HENSON CMP, [id number] #### [facility] ([id number]) [address], [address] [place] [address] Glucose Glucometer (BldC) [M ass/Vol]on 02-17-2025 Glucose [Mass/Vol] 237 mg/dL High 65-99 [facility] Glucose [Mass/Vol] 162 mg/dL High 65-99 [facility] [facility] Glucose [Mass/Vol] 174 mg/dL High 65-99 [facility] Glucose [Mass/Vol] 149 mg/dL High 65-99 [facility] MAGNESIUMon 02-17-2025 Magnesium [Mass/Vol] 2.2 mg/dL Normal 1.8-2.6 [facility] Comment on above: Performed By: #### Renita HENSON CMP, 94719-9 #### [facility] ([id number]) [address], [address] [place] [address] Magnesium [Mass/Vol] 1.7 mg/dL Low 1.8-2.6 [facility] Comment on above: Performed By: #### Renita HENSON CMP, 52031-8 #### [facility] ([id number]) [address], [address] [place] [address] Vancomycin [Mass/Vol]on VANCOMYCIN 17.4 ug/mL Normal 5.0-40.0 [facility] Comment on above: Result Comment: Peak 30-40 ug/mL Trough 5-20 ug/ml Performed By: #### Renita HENSON CMP, 77580-5 #### [facility] ([id number]) [address], [address] [place] [address] CBC AND AUTO DIFFon 02-17-20 25 ABSOLUTE BASOPHIL 0.0 X10E9/L Normal 0.0-0.2 [facility] Comment on above: Performed By: #### Renita HENSON CMP, 77286-6 #### [facility] ([id number]) [address], [address] [place] [address] ABSOLUTE NEUTROPHIL 3.3 X10E9/L Normal 1.5-6.6 [facility] Comment on above: Performed By: #### C NATIVIDAD, CMP, #### [facility] ([id number]) [address], [address] [place] [address] Basophils/100 WBC (Bld) 0.7 % Normal [facility] Comment on above: Performed By: #### C NATIVIDAD, CMP, #### [facility] ([id number]) [address], [address] [place] [address] Eosinophils (Bld) [#/Vol] 0.2 10*3/uL Normal 0.0-0.4 [facility] Comment on above: Performed By: #### Renita HENSON, CMP, #### [facility] ([id number]) [address], [address] [place] [address] Eosinophils/100 WBC (Bld) 4.0 % Normal [facility] Comment on above: Performed By: #### Renita HENSON, CMP, #### [facility] ([id number]) [address], [address] [place] [address] Erythrocyte distribution width (RBC) [Ratio] 16.9 % High 11.5-15.0 [facility] Comment on above: Performed By: #### Renita HENSON, CMP, #### [facility] ([id number]) [address], [address] [place] [address] Hematocrit (Bld) [Volume fraction] 21.0 % Low 35-47 [facility] Comment on above: Performed By: #### Renita HENSON, CMP, #### [facility] ([id number]) [address], [address] [place] [address] Hemoglobin (Bld) [Mass/Vol] 7.0 g/dL Low 11.7-15.5 [facility] Comment on above: Performed By: #### Renita HENSON, CMP, #### [facility] ([id number]) [address], [address] [place] [address] Lymphocytes (Bld) [#/Vol] 1.6 10*3/uL Normal 1.0-3.5 [facility] Comment on above: Performed By: #### Renita HENSON CMP, #### [facility] ([id number]) [address], [facility] [address] [place] [address] Lymphocytes/100 WBC (Bld) 27.0 % Normal [facility] Comment on above: Performed By: #### Renita HENSON, [facility], #### [facility] ([id number]) [address], [facility] [address] [place] [address] MCH (RBC) [Entitic mass] 27.8 pg Normal 27-34 [facility] Comment on above: Performed By: #### Renita HENSON, [facility], #### [facility] ([id number]) [address], [address] [place] [address] MCHC (RBC) [Mass/Vol] 33.2 g/dL Normal 32-36 [facility] Comment on above: Performed By: #### Renita HENSON, CMP, #### [facility] ([id number]) [address], [facility] [address] [place] [address] MCV (RBC) [Entitic vol] 84 fL Normal 80-100 [facility] Comment on above: Performed By: #### Renita HENSON, CMP, #### [facility] ([id number]) [address] [address] [place] [address] Monocytes (Bld) [#/Vol] 0.8 10*3/uL Normal 0-0.9 [facility] Comment on above: Performed By: #### Renita HENSON, CMP, #### [facility] ([id number]) [address], [address] [place] [address] Monocytes/100 WBC (Bld) 13.9 % Normal [facility] Comment on above: Performed By: #### Renita HENSON CMP, 69076-6 #### [facility] ([id number]) [address], [address] [place] [address] Neutrophils/100 WBC (Bld) 54.4 % Normal [facility] Comment on above: Performed By: #### C NATIVIDAD, CMP, #### [facility] ([id number]) [address], [address] [place] [address] Platelet mean volume (Bld) [Entitic vol] 8.1 fL Normal 7-12 [facility] Comment on above: Performed By: #### Renita HENSON CMP, #### [facility] ([id number]) [address], [address] [place] [address] Platelets (Bld) [#/Vol] 189 10*3/uL Normal 150-450 [facility] Comment on above: Performed By: #### Renita HENSON CMP, #### [facility] ([id number]) [address], [address] [place] [address] RBC COUNT 2.50 X10E12/L Low 3.80-5.20 [facility] Comment on above: Performed By: #### Renita HENSON CMP, #### [facility] ([id number]) [address], [address] [place] [address] WBC (Bld) [#/Vol] 6.0 10*3/uL Normal 4.0-11.0 [facility] Comment on above: Performed By: #### Renita HENSON, CMP, #### [facility] ([id number]) [address], [address] [place] [address] COMPREHENSIVE METABOLIC PANE Dickson 02-16-2025 Albumin [Mass/Vol] 2.8 g/dL Low 3.2-5.3 [facility] Comment on above: Performed By: #### C BCA, CMP, #### [facility] ([id number]) [address] [place] [address] ALP [Catalytic activity/Vol] 90 U/L Normal 39-130 [facility] Comment on above: Performed By: #### C BCA, CMP, #### [facility] ([id number]) [address], [address] [place] [address] ALT [Catalytic activity/Vol] 21 U/L Normal 0-31 [facility] Comment on above: Performed By: #### C BCA, CMP, #### [facility] ([id number]) [address] [place] [address] Anion gap [Moles/Vol] 5 mmol/L Normal 5-15 [facility] Comment on above: Performed By: #### C BCA, CMP, #### [facility] ([id number]) [address] [place] [address] AST [Catalytic activity/Vol] 24 U/L Normal 0-41 [facility] Comment on above: Performed By: #### C BCA, CMP, #### [facility] ([id number]) [address], [address] [place] [address] Bilirubin [Mass/Vol] 0.3 mg/dL Normal 0.3-1.2 [facility] Comment on above: Performed By: #### C BCA, CMP, #### [facility] ([id number]) [address], [address] [place] [address] Calcium [Mass/Vol] 8.4 mg/dL Low 8.5-10.5 [facility] Comment on above: Performed By: #### C NATIVIDAD [facility], #### [facility] ([id number]) [address], [address] [place] [address] Chloride [Moles/Vol] 107 mmol/L Normal 98-109 [facility] Comment on above: Performed By: #### C BCA, CMP, #### [facility] ([id number]) [address], [address] [place] [address] CO2 [Moles/Vol] 28 mmol/L Normal 22-32 [facility] Comment on above: Performed By: #### C NATIVIDAD [facility], #### [facility] ([id number]) [address], [address] [place] [address] Creatinine [Mass/Vol] 1.23 mg/dL High 0.40-1.00 [facility] Comment on above: Result Comment: METH OD TRACEABLE TO IDMS STANDARD Performed By: #### C NATIVIDAD [facility], #### [facility] ([id number]) [address], [address] [place] [address] GFR/1.73 sq M.predicted among non-blacks MDRD (S/P/Bld) [Vol rate/Area] 45 mL/min/{1.73_m2} Low >59 [facility] Comment on above: Result Comment: Reported eGFR is based on the CKD-EPI 1 equation that does not use a race coefficient. Performed By: #### C RUBEN HENSON, #### [facility] ([id number]) [address], [address] [place] [address] Glucose [Mass/Vol] 129 mg/dL High 65-99 [facility] Comment on above: Performed By: #### C BCA, CMP, #### [facility] ([id number]) [address], [address] [place] [address] Potassium [Moles/Vol] 4.4 mmol/L Normal 3.5-5.0 [facility] Comment on above: Performed By: #### Renita HENSON CMP, 56789-8 #### [facility] ([id number]) [address], [address] [place] [address] Protein [Mass/Vol] 5.6 g/dL Low 6.0-8.0 [facility] Comment on above: Performed By: #### Renita HENSON CMP, #### [facility] ([id number]) [address], [address] [place] [address] Sodium [Moles/Vol] 140 mmol/L Normal 134-146 [facility] Comment on above: Performed By: #### Renita HENSON CMP, #### [facility] ([id number]) [address], [address] [place] [address] Urea nitrogen [Mass/Vol] 23 mg/dL Normal 5-27 [facility] Comment on above: Performed By: #### Renita HENSON CMP, 08554-8 #### [facility] ([id number]) [address], [address] [place] [address] Glucose Glucometer (BldC) [M ass/Vol]on 02-16-2025 Glucose [Mass/Vol] 291 mg/dL High 65-99 [facility] Glucose [Mass/Vol] 238 mg/dL High 65-99 [facility] Glucose [Mass/Vol] 146 mg/dL High 65-99 [facility] MAGNESIUMon 02-16-2025 Magnesium [Mass/Vol] 1.8 mg/dL Normal 1.8-2.6 [facility] Comment on above: Performed By: #### Renita HENSON CMP, 70698-6 #### [facility] ([id number]) [address], [address] [place] [address] Vancomycin [Mass/Vol]on VANCOMYCIN 13.8 ug/mL Normal 5.0-40.0 [facility] Comment on above: Result Comment: Peak 30-40 ug/mL Trough 5-20 ug/ml Performed By: #### 2 0578-1 #### [facility] ([id number]) [address], [address] [place] [address] XR SHUNT SERIESon 02-16-2025 XR SHUNT SERIES XR SHUNT SERIES EXAM: XR SHUNT SERIES CLINICAL INFORMATION: confusion. COMPARISON: Single view chest dated 02/14/2025, head CT dated 02/12/2025 FINDINGS: There is a right-sided TELEPHONE ANSWERING SERVICE OPERATOR shunt extending along the right side of [...] pneumatosis or free air. IMPRESSION: 1. 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 The visualized shunt catheter is intact without evidence of discontinuity or significant kinking. 2. No acute cardiopulmonary disease. 3. Nonobstructive bowel gas pattern. Finalized by Laci Lima MD on 02/16/2025 9:28 PM Normal [facility] CBC AND AUTO DIFFon 02-16-20 25 ABSOLUTE BASOPHIL 0.0 X10E9/L Normal 0.0-0.2 [facility] Comment on above: Performed By: #### C BCA, CMP, 89997-1 #### [facility] ([id number]) [address], [address] [place] [address] ABSOLUTE NEUTROPHIL 6.2 X10E9/L Normal 1.5-6.6 [facility] Comment on above: Performed By: #### Renita HENSON CMP, #### [facility] ([id number]) [address], [address] [place] [address] Basophils/100 WBC (Bld) 0.5 % Normal [facility] Comment on above: Performed By: #### Renita HENSON CMP, #### [facility] ([id number]) [address], [address] [place] [address] Eosinophils (Bld) [#/Vol] 0.2 10*3/uL Normal 0.0-0.4 [facility] Comment on above: Performed By: #### Renita HENSON CMP, #### [facility] ([id number]) [address], [address] [place] [address] Eosinophils/100 WBC (Bld) 2.3 % Normal [facility] Comment on above: Performed By: #### Renita HENSON CMP, #### [facility] ([id number]) [address], [address] [place] [address] Erythrocyte distribution width (RBC) [Ratio] 16.8 % High 11.5-15.0 [facility] Comment on above: Performed By: #### Renita HENSON CMP, #### [facility] ([id number]) [address], [address] [place] [address] Hematocrit (Bld) [Volume fraction] 23.1 % Low 35-47 [facility] Comment on above: Performed By: #### Renita HENSON CMP, #### [facility] ([id number]) [address], [address] [place] [address] Hemoglobin (Bld) [Mass/Vol] 7.5 g/dL Low 11.7-15.5 [facility] Comment on above: Performed By: #### C RUBEN HENSON, #### [facility] ([id number]) [address], [address] [place] [address] Lymphocytes (Bld) [#/Vol] 1.1 10*3/uL Normal 1.0-3.5 [facility] Comment on above: Performed By: #### Renita HENSON CMP, #### [facility] ([id number]) [address], [facility] [address] [place] [address] Lymphocytes/100 WBC (Bld) 12.9 % Normal [facility] Comment on above: Performed By: #### Renita HENSON CMP, #### [facility] ([id number]) [address], [address] [place] [address] MCH (RBC) [Entitic mass] 27.6 pg Normal 27-34 [facility] Comment on above: Performed By: #### Renita HENSON CMP, #### [facility] ([id number]) [address], [address] [place] [address] MCHC (RBC) [Mass/Vol] 32.5 g/dL Normal 32-36 [facility] Comment on above: Performed By: #### Renita HENSON CMP, #### [facility] ([id number]) [address], [address] [place] [address] MCV (RBC) [Entitic vol] 85 fL Normal 80-100 [facility] Comment on above: Performed By: #### Renita HENSON CMP, #### [facility] ([id number]) [address], [address] [place] [address] Monocytes (Bld) [#/Vol] 1.1 10*3/uL High 0-0.9 [facility] Comment on above: Performed By: #### C BCA, CMP, #### [facility] ([id number]) [address], [address] [place] [address] Monocytes/100 WBC (Bld) 13.0 % Normal [facility] Comment on above: Performed By: #### C BCA, CMP, #### [facility] ([id number]) [address], [address] [place] [address] Neutrophils/100 WBC (Bld) 71.3 % Normal [facility] Comment on above: Performed By: #### C NATIVIDAD, CMP, #### [facility] ([id number]) [address], [address] [place] [address] Platelet mean volume (Bld) [Entitic vol] 7.9 fL Normal 7-12 [facility] Comment on above: Performed By: #### C BCA, CMP, #### [facility] ([id number]) [address], [address] [place] [address] Platelets (Bld) [#/Vol] 202 10*3/uL Normal 150-450 [facility] Comment on above: Performed By: #### C BCA, CMP, #### [facility] ([id number]) [address], [address] [place] [address] RBC COUNT 2.72 X10E12/L Low 3.80-5.20 [facility] Comment on above: Performed By: #### C BCA, CMP, #### [facility] ([id number]) [address], [address] [place] [address] WBC (Bld) [#/Vol] 8.8 10*3/uL Normal 4.0-11.0 [facility] Comment on above: Performed By: #### C BCA, CMP, #### [facility] ([id number]) [address], [address] [place] [address] COMPREHENSIVE METABOLIC PANE Dickson 02-15-2025 Albumin [Mass/Vol] 3.0 g/dL Low 3.2-5.3 [facility] Comment on above: Performed By: #### C BCA, CMP, 56384-6 #### [facility] ([id number]) [address], [address] [place] [address] ALP [Catalytic activity/Vol] 94 U/L Normal 39-130 [facility] Comment on above: Performed By: #### C BCA, CMP, #### [facility] ([id number]) [address], [address] [place] [address] ALT [Catalytic activity/Vol] 31 U/L Normal 0-31 [facility] Comment on above: Performed By: #### C BCA, CMP, #### [facility] ([id number]) [address], [address] [place] [address] Anion gap [Moles/Vol] 8 mmol/L Normal 5-15 [facility] Comment on above: Performed By: #### C BCA, CMP, 82468-6 #### [facility] ([id number]) [address], [address] [place] [address] AST [Catalytic activity/Vol] 42 U/L High 0-41 [facility] Comment on above: Performed By: #### C BCA, CMP, #### [facility] ([id number]) [address], [address] [place] [address] Bilirubin [Mass/Vol] 0.3 mg/dL Normal 0.3-1.2 [facility] Comment on above: Performed By: #### C BCA, CMP, 22354-0 #### [facility] ([id number]) [address], [address] [place] [address] Calcium [Mass/Vol] 8.6 mg/dL Normal 8.5-10.5 [facility] Comment on above: Performed By: #### C NATIVIDAD [facility], 86492-6 #### [facility] ([id number]) [address], [address] [place] [address] Chloride [Moles/Vol] 102 mmol/L Normal 98-109 [facility] Comment on above: Performed By: #### C NATIVIDAD [facility], #### [facility] ([id number]) [address], [address] [place] [address] CO2 [Moles/Vol] 27 mmol/L Normal 22-32 [facility] Comment on above: Performed By: #### C RUBEN HENSON, 73514-4 #### [facility] ([id number]) [address], [address] [place] [address] Creatinine [Mass/Vol] 1.44 mg/dL High 0.40-1.00 [facility] Comment on above: Result Comment: METH OD TRACEABLE TO IDMS STANDARD Performed By: #### C RUBEN HENSON, 72894-2 #### [facility] ([id number]) [address], [address] [place] [address] GFR/1.73 sq M.predicted among non-blacks MDRD (S/P/Bld) [Vol rate/Area] 37 mL/min/{1.73_m2} Low >59 [facility] Comment on above: Result Comment: Reported eGFR is based on the CKD-EPI 2020 equation that does not use a race coefficient. Performed By: #### C RUBEN HENSON, #### [facility] ([id number]) [address], [address] [place] [address] Glucose [Mass/Vol] 132 mg/dL High 65-99 [facility] Comment on above: Performed By: #### C RUBEN HENSON, #### [facility] ([id number]) [address], [address] [place] [address] Potassium [Moles/Vol] 4.5 mmol/L Normal 3.5-5.0 [facility] Comment on above: Performed By: #### Renita HENSON [facility], 37551-1 #### [facility] ([id number]) [address], [address] [place] [address] Protein [Mass/Vol] 6.1 g/dL Normal 6.0-8.0 [facility] Comment on above: Performed By: #### Renita HENSON [facility], #### [facility] ([id number]) [address], [address] [place] [address] Sodium [Moles/Vol] 137 mmol/L Normal 134-146 [facility] Comment on above: Performed By: #### Renita HENSON [facility], #### [facility] ([id number]) [address], [address] [place] [address] Urea nitrogen [Mass/Vol] 27 mg/dL Normal 5-27 [facility] Comment on above: Performed By: #### Renita HENSON [facility], #### [facility] ([id number]) [address], [address] [place] [address] Glucose Glucometer (BldC) [M ass/Vol]on 02-15-2025 Glucose [Mass/Vol] 244 mg/dL High 65-99 [facility] Glucose [Mass/Vol] 127 mg/dL High 65-99 [facility] MAGNESIUMon 02-15-2025 Magnesium [Mass/Vol] 1.9 mg/dL Normal 1.8-2.6 [facility] Comment on above: Performed By: #### Renita HENSON CMP, #### [facility] ([id number]) [address], [address] [place] [address] Vancomycin [Mass/Vol]on VANCOMYCIN 7.8 ug/mL Normal 5.0-40.0 [facility] Comment on above: Result Comment: Peak 30-40 ug/mL Trough 5-20 ug/ml Performed By: #### 2 0578-1 #### [facility] ([id number]) [address], [address] [place] [address] BLOOD CULTUREon 02-14-2025 Bacteria identified Aer cx Nom (Bld) SPECIMEN NOTES SUBOPTIMAL VOLUME OF BLOOD COLLECTED, RESULTS MAY BE AFFECTED. CULTURE RESULTS STAPHYLOCOCCUS AUREUS METHICILLIN RESISTANT FOR SUSCEPTIBILITY, SEE PREVIOUS REPORT. Normal [facility] Comment on above: Performed By: #### 1 7928-3 ####[facility] ([id number])[address], [address] [place] [address] Bacteria identified Aer cx Nom (Bld) SPECIMEN NOTES SUBOPTIMAL VOLUME OF BLOOD COLLECTED, RESULTS MAY BE AFFECTED. CULTURE RESULTS STAPHYLOCOCCUS AUREUS METHICILLIN RESISTANT FOR SUSCEPTIBILITY, SEE PREVIOUS REPORT. Normal [facility] Comment on above: Performed By: #### 1 7928-3 ####[facility] ([id number])[address], [address] [place] [address] CBC AND AUTO DIFFon 02-15-20 25 ABSOLUTE BASOPHIL 0.0 X10E9/L Normal 0.0-0.2 [facility] Comment on above: Performed By: #### C NATIVIDAD CMP, 77904-7, 80373-3 ####[facility] ([id number])[address] [place] [address] ABSOLUTE NEUTROPHIL 8.4 X10E9/L High 1.5-6.6 [facility] Comment on above: Performed By: #### C NATIVIDAD CMP, 23587-3, 74687-9 ####[facility] ([id number])[address] [place] [address] Basophils/100 WBC (Bld) 0.2 % Normal [facility] Comment on above: Performed By: #### C NATIVIDAD, CMP, 40603-4, ####[facility] ([id number])[address] [place] [address] 74177 Eosinophils (Bld) [#/Vol] 0.0 10*3/uL Normal 0.0-0.4 [facility] Comment on above: Performed By: #### Renita HENSON, CMP, 42331-2, ####[facility] ([id number])[address] [place] [address] 45284 Eosinophils/100 WBC (Bld) 0.3 % Normal [facility] Comment on above: Performed By: #### Renita HENSON, CMP, 39380-1, ####[facility] ([id number])[address] [place] [address] 07738 Erythrocyte distribution width (RBC) [Ratio] 16.8 % High 11.5-15.0 [facility] Comment on above: Performed By: #### Renita HENSON, CMP, 83525-7, ####[facility] ([id number])[address] [place] [address] 84599 Hematocrit (Bld) [Volume fraction] 22.6 % Low 35-47 [facility] Comment on above: Performed By: #### C NATIVIDAD, CMP, 01258-2, ####[facility] ([id number])[address] [place] [address] 54513 Hemoglobin (Bld) [Mass/Vol] 7.4 g/dL Low 11.7-15.5 [facility] Comment on above: Performed By: #### Renita BCA, CMP, 05759-1, ####[facility] ([id number])[address] [place] [address] 43565 Lymphocytes (Bld) [#/Vol] 1.3 10*3/uL Normal 1.0-3.5 [facility] Comment on above: Performed By: #### C NATIVIDAD CMP, 29528-4, ####[facility] ([id number])[address] [place] [address] 91310 Lymphocytes/100 WBC (Bld) 12.2 % Normal [facility] Comment on above: Performed By: #### C NATIVIDAD CMP, 18599-4, ####[facility] ([id number])[address] [place] [address] 14765 MCH (RBC) [Entitic mass] 27.9 pg Normal 27-34 [facility] Comment on above: Performed By: #### Renita HENSON CMP, 42824-9, ####[facility] ([id number])[address] [place] [address] 28883 MCHC (RBC) [Mass/Vol] 33.0 g/dL Normal 32-36 [facility] Comment on above: Performed By: #### C NATIVIDAD CMP, 42694-6, ####[facility] ([id number])[address] [place] [address] 48627 MCV (RBC) [Entitic vol] 84 fL Normal 80-100 [facility] Comment on above: Performed By: #### C NATIVIDAD, CMP, 59155-9, ####[facility] ([id number])[address] [place] [address] 53730 Monocytes (Bld) [#/Vol] 0.9 10*3/uL Normal 0-0.9 [facility] Comment on above: Performed By: #### C BCA CMP, 44771-8, ####[facility] ([id number])[address] [place] [address] 92922 Monocytes/100 WBC (Bld) 8.1 % Normal [facility] Comment on above: Performed By: #### C BCA, CMP, 96260-4, ####[facility] ([id number])[address] [place] [address] 92077 Neutrophils/100 WBC (Bld) 79.2 % Normal [facility] Comment on above: Performed By: #### C NATIVIDAD, CMP, 08280-9, ####[facility] ([id number])[address] [place] [address] 41194 Platelet mean volume (Bld) [Entitic vol] 7.7 fL Normal 7-12 [facility] Comment on above: Performed By: #### C NATIVIDAD, CMP, 98602-6, ####[facility] ([id number])[address] [place] [address] 91044 Platelets (Bld) [#/Vol] 208 10*3/uL Normal 150-450 [facility] Comment on above: Performed By: #### C BCA, CMP, 18857-6, ####[facility] ([id number])[address] [place] [address] 93860 RBC COUNT 2.67 X10E12/L Low 3.80-5.20 [facility] Comment on above: Performed By: #### C BCA, CMP, 26045-7, ####[facility] ([id number])[address] [place] [address] 11120 WBC (Bld) [#/Vol] 10.5 10*3/uL Normal 4.0-11.0 [facility] Comment on above: Performed By: #### C BCA, CMP, 82814-9, ####[facility] ([id number])[address] [place] [address] 80336 COMPREHENSIVE METABOLIC PANE Dickson 02-14-2025 Albumin [Mass/Vol] 2.8 g/dL Low 3.2-5.3 [facility] Comment on above: Performed By: #### C BCA, CMP, 90223-3, ####[facility] ([id number])[address] [place] [address] 63546 ALP [Catalytic activity/Vol] 88 U/L Normal 39-130 [facility] Comment on above: Performed By: #### C BCA, CMP, 84282-8, ####[facility] ([id number])[address] [place] [address] 51233 ALT [Catalytic activity/Vol] 21 U/L Normal 0-31 [facility] Comment on above: Performed By: #### C BCA, CMP, 71239-4, ####[facility] ([id number])[address] [place] [address] 77968 Anion gap [Moles/Vol] 9 mmol/L Normal 5-15 [facility] Comment on above: Performed By: #### C BCA, CMP, 44692-9, ####[facility] ([id number])[address] [place] [address] [place] [address] AST [Catalytic activity/Vol] 27 U/L Normal 0-41 [facility] Comment on above: Performed By: #### C BCA, CMP, 64858-7, ####[facility] ([id number])[address] [place] [address] 60062 Bilirubin [Mass/Vol] 0.3 mg/dL Normal 0.3-1.2 [facility] Comment on above: Performed By: #### C NATIVIDAD, CMP, 77948-9, ####[facility] ([id number])[address] [place] [address] 73096 Calcium [Mass/Vol] 8.5 mg/dL Normal 8.5-10.5 [facility] Comment on above: Performed By: #### C BCA CMP, 15281-5, ####[facility] ([id number])[address] [place] [address] 73026 Chloride [Moles/Vol] 99 mmol/L Normal 98-109 [facility] Comment on above: Performed By: #### C NATIVIDAD, CMP, 49809-2, ####[facility] ([id number])[address] [place] [address] 27862 CO2 [Moles/Vol] 26 mmol/L Normal 22-32 [facility] Comment on above: Performed By: #### C NATIVIDAD, CMP, 76337-3, ####[facility] ([id number])[address] [place] [address] 10577 Creatinine [Mass/Vol] 1.96 mg/dL High 0.40-1.00 [facility] Comment on above: Result Comment: METH OD TRACEABLE TO IDMS STANDARD Performed By: #### C NATIVIDAD CMP, 72478-5, ####[facility] ([id number])[address] [place] [address] 29512 GFR/1.73 sq M.predicted among non-blacks MDRD (S/P/Bld) [Vol rate/Area] 26 mL/min/{1.73_m2} Low >59 [facility] Comment on above: Result Comment: Repo rted eGFR is based on theCKD-EPI 2020 equation that doesnot use a race coefficient. Performed By: #### C BCA, CMP, 20599-6, ####[facility] ([id number])[address] [place] [address] 44929 Glucose [Mass/Vol] 187 mg/dL High 65-99 [facility] Comment on above: Performed By: #### C NATIVIDAD, CMP, 48073-7, ####[facility] ([id number])[address] [place] [address] 09870 Potassium [Moles/Vol] 4.4 mmol/L Normal 3.5-5.0 [facility] Comment on above: Performed By: #### C NATIVIDAD, CMP, 43614-5, ####[facility] ([id number])[address] [place] [address] 19491 Protein [Mass/Vol] 6.1 g/dL Normal 6.0-8.0 [facility] Comment on above: Performed By: #### C NATIVIDAD, CMP, 80410-7, ####[facility] ([id number])[address] [place] [address] 19713 Sodium [Moles/Vol] 134 mmol/L Normal 134-146 [facility] Comment on above: Performed By: #### C NATIVIDAD, CMP, 11433-9, ####[facility] ([id number])[address] [place] [address] 33135 Urea nitrogen [Mass/Vol] 38 mg/dL High 5-27 [facility] Comment on above: Performed By: #### C NATIVIDAD, CMP, 88808-7, ####[facility] ([id number])[address] [place] [address] [place] [address] [address] CHEST WO CONTon CT CHEST WO CONT Normal [facility] Glucose Glucometer (BldC) [M ass/Vol]on 02-14-2025 Glucose [Mass/Vol] 161 mg/dL High 65-99 [facility] Glucose [Mass/Vol] 278 mg/dL High 65-99 [facility] Lactate (P obed) [Moles/Vol]o n 02-14-2025 LACTATE W/REFLEX 1.8 mmol/L Normal 0.4-2.0 [facility] Comment on above: Result Comment: Resu lt did not trigger repeat Lactate,re-order if needed. Performed By: #### 3 2133-1 ####[facility] ([id number])[address] [place] [address] 21953 MAGNESIUMon 02-14-2025 Magnesium [Mass/Vol] 2.0 mg/dL Normal 1.8-2.6 [facility] Comment on above: Performed By: #### C RUBEN HENSON, 01724-3, 14776-3 ####[facility] ([id number])[address] [place] [address] 34750 Magnesium Ionized ISE (Bld) [Moles/Vol]on 02-14-2025 Magnesium [Moles/Vol] 0.53 mmol/L Normal 0.45-0.74 [facility] Comment on above: Result Comment: NEW REFERENCE RANGE Performed By: #### 7 3572-0 ####[facility] ([id number])[address] [facility], [address] [place] [address] 25523 Procalcitonin IA [Mass/Vol]o n 02-14-2025 PROCALCITONIN 14.12 ng/mL High <0.05 [facility] Comment on above: Result Comment: NOTE <0.50 ng/mL - Low risk of severe sepsis and/or septic shock.<2.00 ng/mL - Recommend retesting within 6-24 hours.>2.00 ng/mL - High risk of sepsis and/or septic shock. Performed By: #### C RUBEN HENSON, 07209-0, 10676-1 ####[facility] ([id number])[address] [place] [address] XR CHEST 1 VWon 02-14-2025 XR CHEST 1 VW Normal [facility] BLOOD CULTUREon 02-13-2025 Bacteria identified Aer cx Nom (Bld) CULTURE RESULTS STAPHYLOCOCCUS AUREUS METHICILLIN RESISTANT FOR SUSCEPTIBILITY, SEE PREVIOUS REPORT. Normal [facility] Comment on above: Performed By: #### 1 7928-3 ####[facility] ([id number])[address], [address] [place] [address] 19339 Bacteria identified Aer cx Nom (Bld) CULTURE RESULTS STAPHYLOCOCCUS AUREUS METHICILLIN RESISTANT FOR SUSCEPTIBILITY, SEE PREVIOUS REPORT. Normal [facility] Comment on above: Performed By: #### 1 7928-3 ####[facility] ([id number])[address], [address] [place] [address] 02525 CBC AND AUTO DIFFon 02-14-20 ABSOLUTE BASOPHIL 0.0 X10E9/L Normal 0.0-0.2 [facility] Comment on above: Performed By: #### F EPR, 2276-4, 63949-0, 2284-8, 9 ####[facility] ([id number])[address], [address] [place] [address] 77893#### CBCA, 91449-7, CMP ####[facility] ([id number])[address] [place] [address] ABSOLUTE NEUTROPHIL 13.1 X10E9/L High 1.5-6.6 [facility] Comment on above: Performed By: #### F EPR, 2276-4, 18603-7, 2284-8, 9 ####[facility] ([id number])[address], [address] [place] [address] 79430#### CBCA, 10633-4, CMP ####[facility] ([id number])[address] [place] [address] Basophils/100 WBC (Bld) 0.2 % Normal [facility] Comment on above: Performed By: #### F EPR, 6-4, 38351-2, 2284-06, 2132-07 ####[facility] ([id number])[address], [address] [place] [address] 70010#### CBCDanielle, 01390-8, CMP ####[facility] ([id number])[address] [place] [address] 97610 Eosinophils (Bld) [#/Vol] 0.0 10*3/uL Normal 0.0-0.4 [facility] Comment on above: Performed By: #### F EPR, 2275-4, 11397-3, 2284-06, 2132-07 ####[facility] ([id number])[address] [facility] [address] [place] [address] 13381#### CBCDanielle, , CMP ####[facility] ([id number])[address] [place] [address] 24047 Eosinophils/100 WBC (Bld) 0.0 % Normal [facility] Comment on above: Performed By: #### F EPR, 6-4, 55376-8, 2284-06, 2132-07 ####[facility] ([id number])[address], [address] [place] [address] 00309#### CBCDanielle, , CMP ####[facility] ([id number])[address] [place] [address] 22863 Erythrocyte distribution width (RBC) [Ratio] 16.8 % High 11.5-15.0 [facility] Comment on above: Performed By: #### F EPR, 6-4, 42278-5, 2284-06, 2132-07 ####[facility] ([id number])[address] [address] [place] [address] 03663#### CBCA, 26905-5, CMP ####[facility] ([id number])[address] [place] [address] 78681 Hematocrit (Bld) [Volume fraction] 24.2 % Low 35-47 [facility] Comment on above: Performed By: #### F EPR, 2276-4, 96772-4, 2283-8, 2132-07 ####[facility] ([id number])[address], [address] [place] [address] 88023#### CARMEN, 36433-2, CMP ####[facility] ([id number])[address] [place] [address] 99808 Hemoglobin (Bld) [Mass/Vol] 7.9 g/dL Low 11.7-15.5 [facility] Comment on above: Performed By: #### F EPR, 6-4, 18402-8, 2284-06, 2132-07 ####[facility] ([id number])[address] [facility], [address] [place] [address] 32305#### CARMEN, 70171-8, CMP ####[facility] ([id number])[address] [place] [address] 36691 Lymphocytes (Bld) [#/Vol] 0.4 10*3/uL Low 1.0-3.5 [facility] Comment on above: Performed By: #### F EPR, 6-4, 69659-5, 2284-06, 2132-07 ####[facility] ([id number])[address] [facility], [address] [place] [address] 80769#### CBCDanielle, , CMP ####[facility] ([id number])[address] [place] [address] 17633 Lymphocytes/100 WBC (Bld) 2.7 % Normal [facility] Comment on above: Performed By: #### F EPR, 6-4, 51641-6, 8, 2132-07 ####[facility] ([id number])[address], [address] [place] [address] 96823#### CARMEN, , CMP ####[facility] ([id number])[address] [place] [address] 44559 MCH (RBC) [Entitic mass] 27.6 pg Normal 27-34 [facility] Comment on above: Performed By: #### F EPR, 6-4, 08765-5, 2284-06, 2132-07 ####[facility] ([id number])[address] [address]#### CARMEN, , CMP ####[facility] ([id number])[address] [place] [address] 17800 MCHC (RBC) [Mass/Vol] 32.8 g/dL Normal 32-36 [facility] Comment on above: Performed By: #### F EPR, 6-4, 13264-4, 2284-06, 2132-07 ####[facility] ([id number])[address], [address] [address]#### CARMEN, , CMP ####[facility] ([id number])[address] [place] [address] 38887 MCV (RBC) [Entitic vol] 84 fL Normal 80-100 [facility] Comment on above: Performed By: #### F EPR, 6-4, 93550-1, 2284-06, 2132-07 ####[facility] ([id number])[address] [address] [place] [address] 16230#### CARMEN, , CMP ####[facility] ([id number])[address] [place] [address] 81012 Monocytes (Bld) [#/Vol] 0.8 10*3/uL Normal 0-0.9 [facility] Comment on above: Performed By: #### F EPR, 2276-4, 64573-1, 2283-8, 2132-07 ####[facility] ([id number])[address] [place] [address], [address] [address]#### CBCA, , CMP ####[facility] ([id number])[address] [place] [address] 84221 Monocytes/100 WBC (Bld) 5.4 % Normal [facility] Comment on above: Performed By: #### F EPR, 6-4, 30635-5, 8, 2132-07 ####[facility] ([id number])[address] [place] [address] 76375#### CBCA, 89853-9, CMP ####[facility] ([id number])[address] [place] [address] 87623 Neutrophils/100 WBC (Bld) 91.7 % Normal [facility] Comment on above: Performed By: #### F EPR, 6-4, 99179-4, 2284-06, 2132-07 ####[facility] ([id number])[address] [place] [address] 63714#### CBCA, 56223-9, CMP ####[facility] ([id number])[address] [place] [address] 91431 Platelet mean volume (Bld) [Entitic vol] 7.9 fL Normal 7-12 [facility] Comment on above: Performed By: #### F EPR, 6-4, 71271-2, 8, 2132-07 ####[facility] ([id number])[address], [address] [place] [address] 64856#### CBCDanielle, 89244-7, CMP ####[facility] ([id number])[address] [place] [address] 27179 Platelets (Bld) [#/Vol] 273 10*3/uL Normal 150-450 [facility] Comment on above: Performed By: #### F EPR, 2276-4, 00497-5, 2283-8, 2132-07 ####[facility] ([id number])[address], [address] [place] [address] 19044#### CARMEN, 62966-7, CMP ####[facility] ([id number])[address] [place] [address] 33635 RBC COUNT 2.87 X10E12/L Low 3.80-5.20 [facility] Comment on above: Performed By: #### F EPR, 2276-4, 85900-1, 2283-8, 2132-07 ####[facility] ([id number])[address], [address] [place] [address] 76828#### CBCDanielle, 19472-8, CMP ####[facility] ([id number])[address] [place] [address] 09125 WBC (Bld) [#/Vol] 14.3 10*3/uL High 4.0-11.0 [facility] Comment on above: Performed By: #### F EPR, 2276-4, 87576-8, 2283-8, 2132-07 ####[facility] ([id number])[address], [address] [place] [address] 43869#### CBCA, 54215-8, CMP ####[facility] ([id number])[address] [place] [address] 53448 COMPREHENSIVE METABOLIC PANE Dickson 02-13-2025 Albumin [Mass/Vol] 3.0 g/dL Low 3.2-5.3 [facility] Comment on above: Performed By: #### F EPR, 2276-4, 99599-7, 8, 2132-07 ####[facility] ([id number])[address], [address] [place] [address] 21827#### CARMEN, 28804-0, CMP ####[facility] ([id number])[address] [place] [address] 22118 ALP [Catalytic activity/Vol] 104 U/L Normal 39-130 [facility] Comment on above: Performed By: #### F EPR, 6-4, 25024-5, 2284-06, 2132-07 ####[facility] ([id number])[address] [address] [place] [address] 86824#### CARMEN, 99607-2, CMP ####[facility] ([id number])[address] [place] [address] 76323 ALT [Catalytic activity/Vol] 14 U/L Normal 0-31 [facility] Comment on above: Performed By: #### F EPR, 6-4, 87871-2, 8, 2132-07 ####[facility] ([id number])[address], [address] [place] [address] 70753#### CARMEN, 94987-0, CMP ####[facility] ([id number])[address] [place] [address] 23888 Anion gap [Moles/Vol] 8 mmol/L Normal 5-15 [facility] Comment on above: Performed By: #### F EPR, 2276-4, 49798-1, 2283-8, 2132-07 ####[facility] ([id number])[address], [address] [place] [address] 90209#### CARMEN, 69508-9, CMP ####[facility] ([id number])[address] [place] [address] 80770 AST [Catalytic activity/Vol] 19 U/L Normal 0-41 [facility] Comment on above: Performed By: #### F EPR, 6-4, 93055-5, 8, 2132-07 ####[facility] ([id number])[address] [facility], [address] [place] [address] 51028#### CARMEN, 26743-9, CMP ####[facility] ([id number])[address] [place] [address] 80609 Bilirubin [Mass/Vol] 0.6 mg/dL Normal 0.3-1.2 [facility] Comment on above: Performed By: #### F EPR, 2275-4, 95637-6, 2284-06, 2132-07 ####[facility] ([id number])[address] [facility], [address] [place] [address] 32885#### CARMEN, 48545-7, CMP ####[facility] ([id number])[address] [place] [address] 30539 Calcium [Mass/Vol] 8.1 mg/dL Low 8.5-10.5 [facility] Comment on above: Performed By: #### F EPR, 6-4, 03024-4, 2284-06, 2132-07 ####[facility] ([id number])[address] [facility], [address] [place] [address] 08785#### CARMEN, 87426-5, CMP ####[facility] ([id number])[address] [place] [address] 74499 Chloride [Moles/Vol] 103 mmol/L Normal 98-109 [facility] Comment on above: Performed By: #### F EPR, 2276-4, 04820-5, 2284-06, 2132-07 ####[facility] ([id number])[address] [address]#### CARMEN, 50779-0, CMP ####[facility] ([id number])[address] [place] [address] 78510 CO2 [Moles/Vol] 25 mmol/L Normal 22-32 [facility] Comment on above: Performed By: #### F EPR, 6-4, 91195-4, 2284-06, 2132-07 ####[facility] ([id number])[address] [place] [address] 34261#### CARMEN, 48933-4, CMP ####[facility] ([id number])[address] [place] [address] 95026 Creatinine [Mass/Vol] 1.73 mg/dL High 0.40-1.00 [facility] Comment on above: Result Comment: METH OD TRACEABLE TO IDMS STANDARD Performed By: #### F EPR, 6-4, 77045-5, 2284-06, 2132-07 ####[facility] ([id number])[address] [place] [address] 94032#### CARMEN, , CMP ####[facility] ([id number])[address] [place] [address] 62324 GFR/1.73 sq M.predicted among non-blacks MDRD (S/P/Bld) [Vol rate/Area] 30 mL/min/{1.73_m2} Low >59 [facility] Comment on above: Result Comment: Repo rted eGFR is based on theCKD-EPI 2020 equation that doesnot use a race coefficient. Performed By: #### F EPR, 6-4, 26583-7, 2284-06, 2132-07 ####[facility] ([id number])[address], [address] [place] [address] 29314#### CARMEN, 46849-7, CMP ####[facility] ([id number])[address] [place] [address] 32234 Glucose [Mass/Vol] 238 mg/dL High 65-99 [facility] Comment on above: Performed By: #### F EPR, 2276-4, 06063-2, 8, 2132-07 ####[facility] ([id number])[address] [facility], [address] [place] [address]#### CARMEN, 95377-6, CMP ####[facility] ([id number])[address] [place] [address] 97687 Potassium [Moles/Vol] 4.5 mmol/L Normal 3.5-5.0 [facility] Comment on above: Performed By: #### F EPR, 2276-4, 08064-3, 8, 2132-07 ####[facility] ([id number])[address] [facility], [address] [place] [address]#### CARMEN, 79013-4, CMP ####[facility] ([id number])[address] [place] [address] 35041 Protein [Mass/Vol] 6.5 g/dL Normal 6.0-8.0 [facility] Comment on above: Performed By: #### F EPR, 2276-4, 06336-4, 8, 2132-07 ####[facility] ([id number])[address], [address] [place] [address]211#### CARMEN, 98174-9, CMP ####[facility] ([id number])[address] [place] [address] 18343 Sodium [Moles/Vol] 136 mmol/L Normal 134-146 [facility] Comment on above: Performed By: #### F EPR, 2276-4, 56464-9, 8, 2132-07 ####[facility] ([id number])[address], [address] [place] [address] 19708#### CARMEN, 61492-4, CMP ####[facility] ([id number])[address] [place] [address] 76495 Urea nitrogen [Mass/Vol] 34 mg/dL High 5-27 [facility] Comment on above: Performed By: #### F EPR, 6-4, 07951-3, 2284-06, 2132-07 ####[facility] ([id number])[address], [address] [address]#### CARMEN, 59029-0, CMP ####[facility] ([id number])[address] [place] [address] 20621 FECAL OCCULT BLOODon 025 Hemoglobin.gastro intestinal Ql (Stl) Negative Normal NEG [facility] Comment on above: Performed By: #### 2 335-8 ####[facility] ([id number])[address] [place] [address] 75072 FERRITINon 02-13-2025 Ferritin [Mass/Vol] 98 ng/mL Normal 11-307 [facility] Comment on above: Performed By: #### F EPR, 6-4, 49373-7, 2284-06, 2132-07 ####[facility] ([id number])[address], [address] [address]#### CBCA, 21911-7, CMP ####[facility] ([id number])[address] [place] [address] 37260 Folate [Mass/Vol]on 02-14-20 25 FOLIC ACID 5.2 ng/mL Low >5.8 [facility] Comment on above: Result Comment: NEW REFERENCE RANGE Performed By: #### F EPR, 6-4, 56338-2, 8, 2132-07 ####[facility] ([id number])[address], [address] [place] [address] 23820#### CARMEN, 31948-4, CMP ####[facility] ([id number])[address] [place] [address] 40733 Glucose Glucometer (BldC) [M ass/Vol]on 02-13-2025 Glucose [Mass/Vol] 218 mg/dL High 65-99 [facility] Glucose [Mass/Vol] 277 mg/dL High 65-99 [facility] Glucose [Mass/Vol] 259 mg/dL High 65-99 [facility] Glucose [Mass/Vol] 210 mg/dL High 65-99 [facility] HGBon 02-13-2025 Hematocrit (Bld) [Volume fraction] 24.3 % Low 35-47 [facility] Comment on above: Performed By: #### H H ####[facility] ([id number])[address] [place] [address] 57713 Hemoglobin (Bld) [Mass/Vol] 7.9 g/dL Low 11.7-15.5 [facility] Comment on above: Performed By: #### H H ####[facility] ([id number])[address] [place] [address] 08301 IRON PROFILEon 02-13-2025 Iron [Mass/Vol] 11 ug/dL Low 50-170 [facility] Comment on above: Performed By: #### F EPR, 2276-4, 23528-5, 8, 2132-07 ####[facility] ([id number])[address] [facility], [address] [place] [address] 70036#### CBCDanielle, , CMP ####[facility] ([id number])[address] [place] [address] 40973 IRON BINDING 279 ug/dL Normal 250-425 [facility] Comment on above: Performed By: #### F EPR, 2276-4, 43414-5, 8, 2132-07 ####[facility] ([id number])[address], [address] [place] [address] 49027#### CBCDanielle, 60412-7, CMP ####[facility] ([id number])[address] [place] [address] 32653 IRON SATURATION 4 % SATURATION Low 15-50 [facility] Comment on above: Performed By: #### F EPR, 2276-4, 36615-7, 2284-06, 2132-07 ####[facility] ([id number])[address], [address] [place] [address] 85813#### CARMEN, 49133-9, CMP ####[facility] ([id number])[address] [place] [address] 80872 MAGNESIUMon 02-13-2025 Magnesium [Mass/Vol] 1.9 mg/dL Normal 1.8-2.6 [facility] Comment on above: Performed By: #### 1 9123-9 ####[facility] ([id number])[address] [place] [address] 12202 Magnesium [Mass/Vol] 1.7 mg/dL Low 1.8-2.6 [facility] Comment on above: Performed By: #### F EPR, 2276-4, 69405-7, 2284-06, 2132-07 ####[facility] ([id number])[address], [address] [place] [address] 33657#### CBCA, 16745-1, CMP ####[facility] ([id number])[address] [place] [address] 08488 VITAMIN B12on 02-13-2025 Cobalamin (Vitamin B12) [Mass/Vol] 187 pg/mL Normal 180-914 [facility] Comment on above: Performed By: #### F EPR, 2276-4, 16211-1, 2283-8, 2132-07 ####[facility] ([id number])[address] [facility], [address] [place] [address] 84550#### CARMEN, 87494-9, CMP ####[facility] ([id number])[address] [place] [address] 40620 Vitamin D+Metabolites [Mass/ Vol]on 02-13-2025 VITAMIN D 25 HYD TOT 36.2 ng/mL Normal 30-100 [facility] Comment on above: Result Comment: Veronica min D status 25 [place] Vitamin D Deficiency <20 ng/mLInsufficiency 20-29 ng/mLSufficiency 30-100 ng/mLToxicity >100 ng/mLNOTE: A pediatric reference range has not beenestablished by the link cutter of this kit.The [place] [employer] recommendsa Vitamin D level of = or >20ng/mL in infantsand children. Performed By: #### F EPR, 6-4, 62547-3, 8, 2132-07 ####[facility] ([id number])[address] [place] [address], [address] [place] [address] 42527#### CARMEN, 20311-2, CMP ####[facility] ([id number])[address] [place] [address] 70156 ARTERIAL BLOOD GASon 025 TATO'S TEST Normal [facility] Comment on above: Performed By: #### Danielle BG ####[facility] ([id number])[address] [place] [address] [place] [address] Base excess Calc (Bld) [Moles/Vol] 4.0 mmol/L High 0.0-2.0 [facility] Comment on above: Performed By: #### A BG ####[facility] ([id number])[address] [place] [address], [place] [address] Body temperature 98.6 [degF] Normal 37.0 [facility] Comment on above: Performed By: #### A BG ####[facility] ([id number])[address] [place] [address] 33314 HCO3 (Bld) [Moles/Vol] 29.9 mmol/L High 22-26 [facility] Comment on above: Performed By: #### A BG ####[facility] ([id number])[address] [place] [address] [place] [address] INSP. O2 CONC. 30 % Normal [facility] Comment on above: Performed By: #### A BG ####[facility] ([id number])[address] [place] [address] 44726 Oxygen (Bld) [Partial pressure] 76 mm[Hg] Low 80-100 [facility] Comment on above: Performed By: #### A BG ####[facility] ([id number])[address] [place] [address] [place] [address] Oxygen saturation in Blood 95.0 % Normal >90 [facility] Comment on above: Performed By: #### A BG ####[facility] ([id number])[address] [place] [address] 66102 OXYGEN SOURCE NC [facility] Comment on above: Performed By: #### A BG ####[facility] ([id number])[address] [place] [address] 45566 PCO2 49.9 MMHG High 35-45 [facility] Comment on above: Performed By: #### A BG ####[facility] ([id number])[address] [place] [address] 49681 pH (Bld) 7.386 [pH] Normal 7.350-7.45 0 [facility] Comment on above: Performed By: #### A BG ####[facility] ([id number])[address] [place] [address] 68292 SAMPLE SITE RRad Normal [facility] Comment on above: Performed By: #### A BG ####[facility] ([id number])[address] [place] [address] 09550 SAMPLE TYPE ARTERIAL Normal [facility] Comment on above: Performed By: #### A BG ####[facility] ([id number])[address] [place] [address] 81057 BLOOD CULTUREon 02-12-2025 Bacteria identified Aer cx Nom (Bld) Resistant [facility] Comment on above: Performed By: #### 1 7928-3 ####[facility] ([id number])[address] [place] [address]389[facility] ([id number])[address], [address] [place] [address] 50922 Bacteria identified Aer cx Nom (Bld) SPECIMEN NOTES RAC CULTURE RESULTS STAPHYLOCOCCUS AUREUS METHICILLIN RESISTANT FOR SUSCEPTIBILITY, SEE PREVIOUS REPORT. Normal [facility] Comment on above: Performed By: #### 1 7928-3 ####[facility] ([id number])[address] [place] [address]2890[facility] ([id number])[address], [place] [address] CBC AND AUTO DIFFon 02-13-20 25 ABSOLUTE BASOPHIL 0.0 X10E9/L Normal 0.0-0.2 [facility] Comment on above: Performed By: #### C BCA, 3040-3, 95572-0, 67388-9, CMP, 13266- 9, PINR, 56314-2 ####[facility] ([id number])[address] [place] [address] 98523 ABSOLUTE NEUTROPHIL 6.3 X10E9/L Normal 1.5-6.6 [facility] Comment on above: Performed By: #### C BCA, 3040-3, 71188-5, 36819-8, CMP, 90661- 9, PINR, 79679-6 ####[facility] ([id number])[address] [place] [address] 34539 Basophils/100 WBC (Bld) 0.4 % Normal [facility] Comment on above: Performed By: #### C BCA, 3040-3, 45342-5, 70940-4, CMP, 38518- 9, PINR, 22105-3 ####[facility] ([id number])[address] [place] [address] 87407 Eosinophils (Bld) [#/Vol] 0.1 10*3/uL Normal 0.0-0.4 [facility] Comment on above: Performed By: #### C BCA, 3040-3, 97357-7, 31952-8, CMP, 84423- 9, PINR, 18357-5 ####[facility] ([id number])[address] [place] [address] 85658 Eosinophils/100 WBC (Bld) 1.1 % Normal [facility] Comment on above: Performed By: #### C BCA, 3040-3, 49286-1, 85466-6, CMP, 48556- 9, PINR, 94522-8 ####[facility] ([id number])[address] [place] [address] 67123 Erythrocyte distribution width (RBC) [Ratio] 17.0 % High 11.5-15.0 [facility] Comment on above: Performed By: #### C BCA, 3040-3, 65134-3, 84503-1, CMP, 05476- 9, PINR, 67494-3 ####[facility] ([id number])[address] [place] [address] 24029 Hematocrit (Bld) [Volume fraction] 29.2 % Low 35-47 [facility] Comment on above: Performed By: #### C BCA, 3040-3, 12025-7, 97511-6, CMP, 24824- 9, PINR, 14505-8 ####[facility] ([id number])[address] [place] [address] 66371 Hemoglobin (Bld) [Mass/Vol] 9.5 g/dL Low 11.7-15.5 [facility] Comment on above: Performed By: #### C BCA, 3040-3, 06500-5, 01154-3, CMP, 56592- 9, PINR, 71874-3 ####[facility] ([id number])[address] [place] [address] 51607 Lymphocytes (Bld) [#/Vol] 0.7 10*3/uL Low 1.0-3.5 [facility] Comment on above: Performed By: #### C BCA, 3040-3, 14656-7, 42001-5, CMP, 80786- 9, PINR, 14103-6 ####[facility] ([id number])[address] [place] [address] 01445 Lymphocytes/100 WBC (Bld) 9.2 % Normal [facility] Comment on above: Performed By: #### C BCA, 3040-3, 28596-8, 08985-8, CMP, 05864- 9, PINR, 84000-1 ####[facility] ([id number])[address] [place] [address] 69584 MCH (RBC) [Entitic mass] 27.3 pg Normal 27-34 [facility] Comment on above: Performed By: #### C BCA, 3040-3, 05357-6, 94095-2, CMP, 00306- 9, PINR, 61108-8 ####[facility] ([id number])[address] [place] [address] 61320 MCHC (RBC) [Mass/Vol] 32.6 g/dL Normal 32-36 [facility] Comment on above: Performed By: #### C BCA, 3040-3, 00542-6, 67909-4, CMP, 23035- 9, PINR, 22060-1 ####[facility] ([id number])[address] [place] [address] 79069 MCV (RBC) [Entitic vol] 84 fL Normal 80-100 [facility] Comment on above: Performed By: #### C BCA, 3040-3, 75302-8, 02930-5, CMP, 37452- 9, PINR, 31548-2 ####[facility] ([id number])[address] [place] [address] 51937 Monocytes (Bld) [#/Vol] 0.5 10*3/uL Normal 0-0.9 [facility] Comment on above: Performed By: #### C BCA, 3040-3, 54302-6, 69361-5, CMP, 10202- 9, PINR, 30566-4 ####[facility] ([id number])[address] [place] [address] 33159 Monocytes/100 WBC (Bld) 7.0 % Normal [facility] Comment on above: Performed By: #### C BCA, 3040-3, 95084-4, 97072-4, CMP, 62712- 9, PINR, 31417-7 ####[facility] ([id number])[address] [place] [address] 74411 Neutrophils/100 WBC (Bld) 82.3 % Normal [facility] Comment on above: Performed By: #### C BCA, 3040-3, 50659-3, 45924-0, CMP, 84315- 9, PINR, 32842-9 ####[facility] ([id number])[address] [place] [address] 07979 Platelet mean volume (Bld) [Entitic vol] 7.6 fL Normal 7-12 [facility] Comment on above: Performed By: #### C BCA, 3040-3, 45267-5, 08463-5, CMP, 28731- 9, PINR, 17355-9 ####[facility] ([id number])[address] [place] [address] 78597 Platelets (Bld) [#/Vol] 384 10*3/uL Normal 150-450 [facility] Comment on above: Performed By: #### C BCA, 3040-3, 90001-0, 84641-5, CMP, 06695- 9, PINR, 60704-9 ####[facility] ([id number])[address] [place] [address] 75154 RBC COUNT 3.49 X10E12/L Low 3.80-5.20 [facility] Comment on above: Performed By: #### C BCA, 3040-3, 89383-5, 43292-6, CMP, 21512- 9, PINR, 34291-6 ####[facility] ([id number])[address] [place] [address] 60227 WBC (Bld) [#/Vol] 7.7 10*3/uL Normal 4.0-11.0 [facility] Comment on above: Performed By: #### C BCA, 3040-3, 69873-7, 96121-2, CMP, 80070- 9, PINR, 23391-8 ####[facility] ([id number])[address] [place] [address] 10088 COMPREHENSIVE METABOLIC PANE Dickson 02-12-2025 Albumin [Mass/Vol] 3.7 g/dL Normal 3.2-5.3 [facility] Comment on above: Performed By: #### C BCA, 3040-3, 43261-4, 79012-4, CMP, 11204- 9, PINR, 60619-8 ####[facility] ([id number])[address] [place] [address] 42398 ALP [Catalytic activity/Vol] 137 U/L High 39-130 [facility] Comment on above: Performed By: #### C BCA, 3040-3, 10482-5, 49576-7, CMP, 39026- 9, PINR, 94495-4 ####[facility] ([id number])[address] [place] [address] 98481 ALT [Catalytic activity/Vol] 17 U/L Normal 0-31 [facility] Comment on above: Performed By: #### C BCA, 3040-3, 91798-9, 50384-0, CMP, 91592- 9, PINR, 53476-2 ####[facility] ([id number])[address] [place] [address] 75060 Anion gap [Moles/Vol] 11 mmol/L Normal 5-15 [facility] Comment on above: Performed By: #### C BCA, 3040-3, 63794-2, 97762-0, CMP, 65128- 9, PINR, 48100-2 ####[facility] ([id number])[address] [place] [address] 92949 AST [Catalytic activity/Vol] 22 U/L Normal 0-41 [facility] Comment on above: Performed By: #### C BCA, 3040-3, 12820-3, 88935-1, CMP, 81674- 9, PINR, 78980-7 ####[facility] ([id number])[address] [place] [address] 72808 Bilirubin [Mass/Vol] 0.6 mg/dL Normal 0.3-1.2 [facility] Comment on above: Performed By: #### C BCA, 3040-3, 79100-9, 42377-8, CMP, 57013- 9, PINR, 83778-7 ####[facility] ([id number])[address] [place] [address] 46406 Calcium [Mass/Vol] 9.4 mg/dL Normal 8.5-10.5 [facility] Comment on above: Performed By: #### C BCA, 3040-3, 81618-6, 38046-3, CMP, 73938- 9, PINR, 37830-6 ####[facility] ([id number])[address] [place] [address] 23963 Chloride [Moles/Vol] 98 mmol/L Normal 98-109 [facility] Comment on above: Performed By: #### C BCA, 3040-3, 58517-6, 85520-2, CMP, 81483- 9, PINR, 15188-0 ####[facility] ([id number])[address] [place] [address] 91934 CO2 [Moles/Vol] 28 mmol/L Normal 22-32 [facility] Comment on above: Performed By: #### C BCA, 3040-3, 17733-1, 92549-2, CMP, 55596- 9, PINR, 57635-5 ####[facility] ([id number])[address] [place] [address] 38289 Creatinine [Mass/Vol] 1.79 mg/dL High 0.40-1.00 [facility] Comment on above: Result Comment: METH OD TRACEABLE TO IDMS STANDARD Performed By: #### C BCA, 3040-3, 10797-9, 28546-8, CMP, 09469-7, PINR, 58855-3 ####[facility] ([id number])[address] [place] [address] 55412 GFR/1.73 sq M.predicted among non-blacks MDRD (S/P/Bld) [Vol rate/Area] 29 mL/min/{1.73_m2} Low >59 [facility] Comment on above: Result Comment: Repo rted eGFR is based on theCKD-EPI 2020 equation that doesnot use a race coefficient. Performed By: #### C BCA, 3040-3, 27930-4, 23423-0, CMP, 29652-4, PINR, 10396-8 ####[facility] ([id number])[address] [place] [address] 84986 Glucose [Mass/Vol] 159 mg/dL High 65-99 [facility] Comment on above: Performed By: #### C BCA, 3040-3, 11793-0, 48409-6, CMP, 60669- 9, PINR, 59162-9 ####[facility] ([id number])[address] [place] [address] 43927 Potassium [Moles/Vol] 5.1 mmol/L High 3.5-5.0 [facility] Comment on above: Performed By: #### C BCA, 3040-3, 30871-1, 43186-5, CMP, 06920- 9, PINR, 60868-1 ####[facility] ([id number])[address] [place] [address] 88615 Protein [Mass/Vol] 8.0 g/dL Normal 6.0-8.0 [facility] Comment on above: Performed By: #### C BCA, 3040-3, 93640-9, 88428-8, CMP, 87316- 9, PINR, 78126-7 ####[facility] ([id number])[address] [place] [address] 40504 Sodium [Moles/Vol] 137 mmol/L Normal 134-146 [facility] Comment on above: Performed By: #### C BCA, 3040-3, 70268-4, 36096-5, CMP, 07476- 9, PINR, 40907-7 ####[facility] ([id number])[address] [place] [address] 97845 Urea nitrogen [Mass/Vol] 29 mg/dL High 5-27 [facility] Comment on above: Performed By: #### C BCA, 3040-3, 46924-0, 31956-8, CMP, 52547- 9, PINR, 42436-0 ####[facility] ([id number])[address] [place] [address] BRAIN WO CONTon CT BRAIN WO CONT Normal [facility] LIPASEon 02-12-2025 Lipase [Catalytic activity/Vol] 26 U/L Normal 17-40 [facility] Comment on above: Performed By: #### C BCA, 3040-3, 63709-3, 45155-6, CMP, 21516- 9, PINR, 60531-1 ####[facility] ([id number])[address] [place] [address] 54185 Lactate (P obed) [Moles/Vol]o n 02-12-2025 LACTATE W/REFLEX 0.9 mmol/L Normal 0.4-2.0 [facility] Comment on above: Result Comment: Resu lt did not trigger repeat Lactate,re-order if needed. Performed By: #### 3 2133-1 ####[facility] ([id number])[address] [place] [address] 92987 MAGNESIUMon 02-12-2025 Magnesium [Mass/Vol] 1.9 mg/dL Normal 1.8-2.6 [facility] Comment on above: Performed By: #### C NATIVIDAD, 3040-3, 76334-9, 90213-7, CMP, 70899- 9, PINR, 93889-5 ####[facility] ([id number])[address] [place] [address] 79590 PROTIME AND INRon 02-12-2025 INR Coag (PPP) [Relative time] 1.0 {INR} Normal 0.9-1.2 [facility] Comment on above: Performed By: #### C NATIVIDAD, 3040-3, 34014-2, 42171-4, CMP, 23532- 9, PINR, 66166-3 ####[facility] ([id number])[address] [place] [address] 47801 PT Coag (PPP) [Time] 11.7 s Normal 9.8-13.2 [facility] Comment on above: Result Comment: NEW REFERENCE RANGE Performed By: #### C NATIVIDAD, 3040-3, 06712-5, 31858-5, CMP, 43724-6, PINR, 55235-1 ####[facility] ([id number])[address] [place] [address] 42767 Procalcitonin IA [Mass/Vol]o n 02-12-2025 PROCALCITONIN 0.14 ng/mL High <0.05 [facility] Comment on above: Result Comment: NOTE <0.50 ng/mL - Low risk of severe sepsis and/or septic shock.<2.00 ng/mL - Recommend retesting within 6-24 hours.>2.00 ng/mL - High risk of sepsis and/or septic shock. Performed By: #### C NATIVIDAD, 3040-3, 26037-8, 29729-9, CMP, 98043-4, PINR, 34328-1 ####[facility] ([id number])[address] [place] [address], [place] [address] SARS/FLU A+B/RSV by NAAT/Mol ecularon 02-12-2025 SARS/FLU A+B/RSV by NAAT/Molecular Normal [facility] Comment on above: Performed By: #### C OVFLR ####[facility] ([id number])[address] [place] [address] 65446 Troponin I.cardiac High sens itivity method [Mass/Vol]on 02-12-2025 1 HOUR TROP I, HIGH SENSITIVITY 12 ng/L Normal <16 [facility] Comment on above: Performed By: #### 8 9579-7 ####[facility] ([id number])[address] [place] [address] 08582 TROPONIN I, HIGH SENSITIVITY 13 ng/L Normal <16 [facility] Comment on above: Performed By: #### C BCA, 3040-3, 23905-3, 72629-4, CMP, 88469- 9, PINR, 85348-1 ####[facility] ([id number])[address] [place] [address], [place] [address] URINALYSISon 02-12-2025 Bilirubin Ql (U) Negative Normal NEG [facility] Comment on above: Performed By: #### U A ####[facility] ([id number])[address] [place] [address] [place] [address] BLOOD/HGB Trace Abnormal NEG [facility] Comment on above: Performed By: #### U A ####[facility] ([id number])[address] [place] [address] [place] [address] Color (U) YELLOW Normal YELLOW [facility] Comment on above: Performed By: #### U A ####[facility] ([id number])[address] [place] [address] [place] [address] Glucose Ql (U) Negative Normal NEG [facility] Comment on above: Performed By: #### U A ####[facility] ([id number])[address] [place] [address] 98377 Ketones Ql (U) Trace Abnormal NEG [facility] Comment on above: Performed By: #### U A ####[facility] ([id number])[address] [place] [address] 81381 Leukocyte esterase Test strip Ql (U) SMALL Abnormal NEG [facility] Comment on above: Performed By: #### U A ####[facility] ([id number])[address] [place] [address] 98088 Nitrite Ql (U) Positive Abnormal NEG [facility] Comment on above: Performed By: #### U A ####[facility] ([id number])[address] [place] [address] 94058 pH (U) 6.5 [pH] Normal 5.0-8.5 [facility] Comment on above: Performed By: #### U A ####[facility] ([id number])[address] [place] [address] 99118 Protein Ql (U) 30 mg/dL Abnormal NEG [facility] Comment on above: Performed By: #### U A ####[facility] ([id number])[address] [place] [address] 29619 R.B.CELLS 14 /hpf High 0-5 [facility] Comment on above: Performed By: #### U A ####[facility] ([id number])[address] [place] [address] 58187 Specific gravity (U) [Rel density] 1.020 Normal 1.003-1.03 5 [facility] Comment on above: Performed By: #### U A ####[facility] ([id number])[address] [place] [address]107 SQUAMOUS EPITHELIUM 1 /hpf Normal 0-5 [facility] Comment on above: Performed By: #### U A ####[facility] ([id number])[address] [place] [address] 44414 TRANSITIONAL EPITH 1 /hpf High 0 [facility] Comment on above: Performed By: #### U A ####[facility] ([id number])[address] [place] [address] 94722 TURBIDITY HAZY Abnormal CLEAR [facility] Comment on above: Performed By: #### U A ####[facility] ([id number])[address] [place] [address] 74615 Urobilinogen Qn (U) 0.2 {Artie'U}/dL Normal <1.1 [facility] Comment on above: Performed By: #### U A ####[facility] ([id number])[address] [place] [address] 57687 W.B.CELLS >100 High 0-5 [facility] Comment on above: Performed By: #### U A ####[facility] ([id number])[address] [place] [address] 68759 WBC CLUMPS FEW Abnormal NONE [facility] Comment on above: Performed By: #### U A ####[facility] ([id number])[address] [place] [address] 20466 URINE CULTUREon 02-12-2025 Bacteria identified Cx Nom (U) Susceptible [facility] Comment on above: Performed By: #### 6 30-4 ####[facility] ([id number])[address], [place] [address] URN MACROSCOPIC NURon 2024 BILIRUBIN MARYJO Negative Normal NEG [facility] Comment on above: Performed By: #### N UM ####[facility] ([id number])[address] [place] [address], [place] [address] BLOOD/HGB MARYJO Trace Abnormal NEG [facility] Comment on above: Performed By: #### N UM ####[facility] ([id number])[address] [place] [address], [place] [address] GLUCOSE MARYJO 100 mg/dL Abnormal NEG [facility] Comment on above: Performed By: #### N UM ####[facility] ([id number])[address] [place] [address], [place] [address] KETONES MARYJO 15 mg/dL Abnormal NEG [facility] Comment on above: Performed By: #### N UM ####[facility] ([id number])[address] [place] [address], [place] [address] LEUKOCYTE ESTERASE MARYJO Small Abnormal NEG [facility] Comment on above: Performed By: #### N UM ####[facility] ([id number])[address] [place] [address], [place] [address] NITRITE MARYJO Positive Abnormal NEG [facility] Comment on above: Performed By: #### N UM ####[facility] ([id number])[address] [place] [address], [place] [address] PH MARYJO 6.5 Normal 5.0-8.5 [facility] Comment on above: Performed By: #### N UM ####[facility] ([id number])[address] [place] [address], [place] [address] PROTEIN MARYJO 100 mg/dL Abnormal NEG [facility] Comment on above: Performed By: #### N UM ####[facility] ([id number])[address] [place] [address], [place] [address] SPECIFIC GRAVITY MARYJO 1.020 Normal 1.003-1.03 5 [facility] Comment on above: Performed By: #### N UM ####[facility] ([id number])[address] [place] [address] UROBILINOGEN MARYJO 0.2 eu/dL Normal <1.1 [facility] Comment on above: Performed By: #### N UM ####[facility] ([id number])[address] [place] [address] 35498 XR CHEST 1 VWon 02-12-2025 XR CHEST 1 VW Normal [facility] aPTT Coag (PPP) [Time]on aPTT Coag (Bld) [Time] 28 s Normal 26-37 [facility] Comment on above: Result Comment: NEW REFERENCE RANGE Performed By: #### C BCA, 3040-3, 26915-9, 12749-6, CMP, 84388-7, PINR, [id number] ####[facility] ([id number])[address] [place] [address] 14121 MICROALBUMIN - ALBUMIN:CREAT ININE URINE RATIOon 02-03-2025 ALB/CREAT RATIO 16.2 mg/g creat Normal 0.0-30.0 [facility] Comment on above: Performed By: #### M ALBU ####[facility] ([id number])[facility], [address] [place] [address] 170[address]#### UA ####[facility] ([id number])[address] [place] [address] 80973 Albumin DL <= 20 mg/L (U) [Mass/Vol] 1.3 mg/dL Normal 0.0-1.9 [facility] Comment on above: Performed By: #### M ALBU ####[facility] ([id number])[address] [facility], [address] [place] [address] 99768#### UA ####[facility] ([id number])[address] [place] [address] 02225 URINE CREAT 80.04 mg/dL Normal [facility] Comment on above: Performed By: #### M ALBU ####[facility] ([id number])[address], [address] [place] [address]#### UA ####[facility] ([id number])[address] [place] [address] 68837 URINALYSISon 02-03-2025 Bilirubin Ql (U) Negative Normal NEG [facility] Comment on above: Performed By: #### M ALBU ####[facility] ([id number])0 [facility] [address] [place] [address] 17640#### UA ####[facility] ([id number])[address] [place] [address] 16817 BLOOD/HGB Trace Abnormal NEG [facility] Comment on above: Performed By: #### M ALBU ####[facility] ([id number])0 [facility] [address] [place] [address] 68987#### UA ####[facility] ([id number])[address] [place] [address] 20416 Color (U) YELLOW Normal YELLOW [facility] Comment on above: Performed By: #### M ALBU ####[facility] ([id number])0 [address] [address] [place] [address] 14587#### UA ####[facility] ([id number])[address] [place] [address] 83109 Glucose Ql (U) 250 mg/dL Abnormal NEG [facility] Comment on above: Performed By: #### M ALBU ####[facility] ([id number])[address] [address] [place] [address] 86411#### UA ####[facility] ([id number])[address] [place] [address] 82923 Ketones Ql (U) Negative Normal NEG [facility] Comment on above: Performed By: #### M ALBU ####[facility] ([id number])[address], [address] [place] [address] 46379#### UA ####[facility] ([id number])[address] [place] [address] 99788 Leukocyte esterase Test strip Ql (U) SMALL Abnormal NEG [facility] Comment on above: Performed By: #### M ALBU ####[facility] ([id number])[address], [address] [place] [address] 71582#### UA ####[facility] ([id number])[address] [place] [address] 04284 Nitrite Ql (U) Positive Abnormal NEG [facility] Comment on above: Performed By: #### M ALBU ####[facility] ([id number])[address], [address] [place] [address] 09810#### UA ####[facility] ([id number])[address] [place] [address] 90781 pH (U) 6.0 [pH] Normal 5.0-8.5 [facility] Comment on above: Performed By: #### M ALBU ####[facility] ([id number])[address], [address] [place] [address] 45678#### UA ####[facility] ([id number])[address] [place] [address] 11358 Protein Ql (U) Negative Normal NEG [facility] Comment on above: Performed By: #### M ALBU ####[facility] ([id number])[address], [address] [place] [address] 19539#### UA ####[facility] ([id number])[address] [place] [address] 81474 R.B.CELLS 2 /hpf Normal 0-5 [facility] Comment on above: Performed By: #### M ALBU ####[facility] ([id number])[address] [facility], [address] [address]#### UA ####[facility] ([id number])[address] [place] [address] 66190 Specific gravity (U) [Rel density] 1.015 Normal 1.003-1.03 5 [facility] Comment on above: Performed By: #### M ALBU ####[facility] ([id number])[address] [address]#### UA ####[facility] ([id number])[address] [place] [address] 47791 SQUAMOUS EPITHELIUM 3 /hpf Normal 0-5 [facility] Comment on above: Performed By: #### M ALBU ####[facility] ([id number])[address] [address]#### UA ####[facility] ([id number])[address] [place] [address] 48619 TURBIDITY HAZY Abnormal CLEAR [facility] Comment on above: Performed By: #### M ALBU ####[facility] ([id number])[address] [address]#### UA ####[facility] ([id number])[address] [place] [address] 03503 Urobilinogen Qn (U) 0.2 {Artie'U}/dL Normal <1.1 [facility] Comment on above: Performed By: #### M ALBU ####[facility] ([id number])[address], [address] [place] [address] 66599#### UA ####[facility] ([id number])[address] [place] [address] 70965 W.B.CELLS >100 High 0-5 [facility] Comment on above: Performed By: #### M ALBU ####[facility] ([id number])[address], [address] [place] [address] 64338#### UA ####[facility] ([id number])[address] [place] [address] 83339 WBC CLUMPS FEW Abnormal NONE [facility] Comment on above: Performed By: #### M ALBU ####[facility] ([id number])[address], [address] [place] [address] 16508#### UA ####[facility] ([id number])[address] [place] [address] 26972 BASIC METABOLIC PANLon 02-02 Anion gap [Moles/Vol] 12 mmol/L Normal 5-15 [facility] Comment on above: Performed By: #### C BCA, 2777-1, 02339-2, BMP, , 8 ####[facility] ([id number])[address], [address] [place] [address], [place] [address] Calcium [Mass/Vol] 9.0 mg/dL Normal 8.5-10.5 [facility] Comment on above: Performed By: #### C BCA, 2777-1, 93034-0, BMP, , 2731-06 ####[facility] ([id number])[address], [address], [place] [address] Chloride [Moles/Vol] 95 mmol/L Low 98-109 [facility] Comment on above: Performed By: #### C BCA, 2777-1, 99910-6, BMP, 26693-7, 2730- ####[facility] ([id number])[address] [address], [place] [address] CO2 [Moles/Vol] 30 mmol/L Normal 22-32 [facility] Comment on above: Performed By: #### C BCA, 2777-1, 57324-6, BMP, 78235-3, 2730- ####[facility] ([id number])[address], [address], [place] [address] Creatinine [Mass/Vol] 2.12 mg/dL High 0.40-1.00 [facility] Comment on above: Result Comment: METH OD TRACEABLE TO IDMS STANDARD Performed By: #### C BCA, 2777-1, 66888-1, BMP, 25752-9, 2731-06 ####[facility] ([id number])[address] [address] GFR/1.73 sq M.predicted among non-blacks MDRD (S/P/Bld) [Vol rate/Area] 23 mL/min/{1.73_m2} Low >59 [facility] Comment on above: Result Comment: Repo rted eGFR is based on theCKD-EPI 2020 equation that doesnot use a race coefficient. Performed By: #### C BCA, 2777-1, 07207-5, BMP, 07397-7, 2731-06 ####[facility] ([id number])[address] [address], [place] [address] Glucose [Mass/Vol] 268 mg/dL High 65-99 [facility] Comment on above: Performed By: #### C BCA, 2777-1, 33546-9, BMP, 22776-4, 2730-8 ####[facility] ([id number])[address] [address] [place] [address] 65[address] Potassium [Moles/Vol] 5.1 mmol/L High 3.5-5.0 [facility] Comment on above: Performed By: #### Renita HENSON, 2777-1, 61663-0, [facility], , 2731-06 ####[facility] ([id number])[address], [address] [place] [address] 35010 Sodium [Moles/Vol] 137 mmol/L Normal 134-146 [facility] Comment on above: Performed By: #### Renita HENSON, 7-1, 35740-4, [facility], 59502-6, 2731-06 ####[facility] ([id number])[address], [address] [place] [address] 33327 Urea nitrogen [Mass/Vol] 40 mg/dL High 5-27 [facility] Comment on above: Performed By: #### Renita HENSON, 7-1, 67388-1, [facility], , 2731-06 ####[facility] ([id number])[address], [address] [place] [address] 11706 CBC AND AUTO DIFFon 02-03-20 25 ABSOLUTE BASOPHIL 0.0 X10E9/L Normal 0.0-0.2 [facility] Comment on above: Performed By: #### Renita HENSON, 7-1, 02778-1, [facility], , 2731-06 ####[facility] ([id number])[address], [address] [place] [address] 35379 ABSOLUTE NEUTROPHIL 2.9 X10E9/L Normal 1.5-6.6 [facility] Comment on above: Performed By: #### Renita HENSON, 2777-1, 37033-4, [facility], , 2731-06 ####[facility] ([id number])[address], [address] [place] [address] 13390 Basophils/100 WBC (Bld) 0.5 % Normal [facility] Comment on above: Performed By: #### C NATIVIDAD, 2777-1, 91254-5, BMP, , 2731-06 ####[facility] ([id number])[address], [address] [place] [address] 06688 Eosinophils (Bld) [#/Vol] 0.3 10*3/uL Normal 0.0-0.4 [facility] Comment on above: Performed By: #### Renita HENSON, 2777-1, 82021-1, BMP, , 2731-06 ####[facility] ([id number])[address], [address] [place] [address] 92609 Eosinophils/100 WBC (Bld) 5.4 % Normal [facility] Comment on above: Performed By: #### Renita HENSON, 7-, 08623-3, BMP, , 2731-06 ####[facility] ([id number])[address], [address] [place] [address] 75493 Erythrocyte distribution width (RBC) [Ratio] 16.4 % High 11.5-15.0 [facility] Comment on above: Performed By: #### Renita HENSON, 7-, 15557-7, BMP, , 2731-06 ####[facility] ([id number])[address] [address] [place] [address] 58558 Hematocrit (Bld) [Volume fraction] 29.2 % Low 35-47 [facility] Comment on above: Performed By: #### Renita HENSON, 2777-1, 27550-3, BMP, , 2731-06 ####[facility] ([id number])[address] [address] Hemoglobin (Bld) [Mass/Vol] 9.5 g/dL Low 11.7-15.5 [facility] Comment on above: Performed By: #### Renita HENSON, 2777-1, 35156-6, BMP, 84666-1, 2730-8 ####[facility] ([id number])[address], [address] [place] [address] 48660 Lymphocytes (Bld) [#/Vol] 1.8 10*3/uL Normal 1.0-3.5 [facility] Comment on above: Performed By: #### Renita HENSON, 2777-1, 75722-5, BMP, 39720-5, 2730-8 ####[facility] ([id number])[address], [address] [place] [address] 59322 Lymphocytes/100 WBC (Bld) 31.9 % Normal [facility] Comment on above: Performed By: #### Renita HENSON, 2777-1, 79448-0, BMP, 59532-0, 2730- ####[facility] ([id number])[address], [address] [place] [address] 61364 MCH (RBC) [Entitic mass] 27.6 pg Normal 27-34 [facility] Comment on above: Performed By: #### Renita HENSON, 2777-1, 64925-0, BMP, 66437-3, 2730- ####[facility] ([id number])[address], [address] [place] [address] 31065 MCHC (RBC) [Mass/Vol] 32.7 g/dL Normal 32-36 [facility] Comment on above: Performed By: #### Renita BCA, 2777-1, 51444-6, BMP, 49820-5, 2730-8 ####[facility] ([id number])[address] [address] [place] [address] 50388 MCV (RBC) [Entitic vol] 84 fL Normal 80-100 [facility] Comment on above: Performed By: #### Renita BCA, 2777-1, 65079-1, BMP, 42743-5, 2730- ####[facility] ([id number])[address], [address], [place] [address] Monocytes (Bld) [#/Vol] 0.6 10*3/uL Normal 0-0.9 [facility] Comment on above: Performed By: #### Renita HENSON, 2777-1, 53922-0, BMP, 04582-6, 2730-8 ####[facility] ([id number])[address], [address], [place] [address] Monocytes/100 WBC (Bld) 10.2 % Normal [facility] Comment on above: Performed By: #### Renita HENSON, 2777-1, 16844-4, BMP, 05905-8, 2730- ####[facility] ([id number])[address], [address], [place] [address] Neutrophils/100 WBC (Bld) 52.0 % Normal [facility] Comment on above: Performed By: #### Renita HENSON, 2777-1, 08357-4, BMP, 49499-5, 2730- ####[facility] ([id number])[address] [address], [place] [address] Platelet mean volume (Bld) [Entitic vol] 8.0 fL Normal 7-12 [facility] Comment on above: Performed By: #### Renita HENSON, 2777-1, 88515-2, BMP, 66466-2, 2730- ####[facility] ([id number])[address] [address], [place] [address] Platelets (Bld) [#/Vol] 338 10*3/uL Normal 150-450 [facility] Comment on above: Performed By: #### Renita HENSON, 2777-1, 22661-7, BMP, 95994-3, 2730- ####[facility] ([id number])[address] [address] [address] RBC COUNT 3.46 X10E12/L Low 3.80-5.20 [facility] Comment on above: Performed By: #### C NATIVIDAD, 2777-1, 47251-2, BMP, 89940-7, 2731-06 ####[facility] ([id number])[address], [address], [place] [address] WBC (Bld) [#/Vol] 5.6 10*3/uL Normal 4.0-11.0 [facility] Comment on above: Performed By: #### C NATIVIDAD, 2777-1, 84427-8, BMP, 75156-8, 2731-06 ####[facility] ([id number])[address], [address], [place] [address] MAGNESIUMon 02-02-2025 Magnesium [Mass/Vol] 2.0 mg/dL Normal 1.8-2.6 [facility] Comment on above: Performed By: #### C NATIVIDAD, 7-1, 64386-7, BMP, , 2731-06 ####[facility] ([id number])[address], [address], [place] [address] PHOSPHORUSon 02-02-2025 Phosphate [Mass/Vol] 4.7 mg/dL Normal 2.4-4.9 [facility] Comment on above: Performed By: #### Renita HENSON, 7-1, 18025-8, BMP, , 2731-06 ####[facility] ([id number])[address], [address], [place] [address] Parathyrin.intact [Mass/Vol] on 02-02-2025 PTH INTACT 140 pg/mL High 12-88 [facility] Comment on above: Performed By: #### Renita BCA, 2777-1, 25287-5, BMP, , 2731-06 ####[facility] ([id number])[address], [address], [place] [address] Vitamin D+Metabolites [Mass/ Vol]on 02-02-2025 VITAMIN D 25 HYD TOT 48.7 ng/mL Normal 30-100 [facility] Comment on above: Result Comment: Veronica min D status 25 [place] Vitamin D Deficiency <20 ng/mLInsufficiency 20-29 ng/mLSufficiency 30-100 ng/mLToxicity >100 ng/mLNOTE: A pediatric reference range has not beenestablished by the link cutter of this kit.The [place] [employer] recommendsa Vitamin D level of = or >20ng/mL in infantsand children. Performed By: #### C BCA, 2777-1, 49721-7, BMP, 31637-6, 2731-8 ####[facility] ([id number])[address] [place] [address], [address] [place] [address] 80747 CANCER ANTIGEN 27.29on 01-22 CANCER ANTGN 27.29 56.4 U/mL High <=39.0 [facility] Comment on above: Result Comment: NOTE [...] used alone for a diagnosis of malignancy.Methodology: [place] IM BR 27.29 (BR) chemiluminescentimmunoassay was used. Results obtained with different assaymethods or kits cannot be used interchangeably.Performed By: [facility] [address] [place] [address] [id number] Director: Brendon Ruiz MD, PhDCLIA Number: [id number] Performed By: #### Renita CUEVAS 6875-9, CBCA ####[facility] ([id number])[address] [address]#### CANTGN ####[facility] ([id number])[address] [place] [address] 16638 CBC AND AUTO DIFFon 01-23-20 25 ABSOLUTE BASOPHIL 0.0 X10E9/L Normal 0.0-0.2 [facility] Comment on above: Performed By: #### Renita CUEVAS 6875-9, CBCA ####[facility] ([id number])[address] [place] [address]#### CANTGN ####[facility] ([id number])[address] [place] [address] 53526 ABSOLUTE NEUTROPHIL 4.9 X10E9/L Normal 1.5-6.6 [facility] Comment on above: Performed By: #### Renita CUEVAS 6875-9, CBCA ####[facility] ([id number])[address] [address]#### CANTGN ####[facility] ([id number])[address] [place] [address] 11175 Basophils/100 WBC (Bld) 0.6 % Normal [facility] Comment on above: Performed By: #### Renita CUEVAS 6875-9, CBCA ####[facility] ([id number])[address] [place] [address]#### CANTGN ####[facility] ([id number])[address] [place] [address] 23156 Eosinophils (Bld) [#/Vol] 0.2 10*3/uL Normal 0.0-0.4 [facility] Comment on above: Performed By: #### C FAITH, 6875-9, CBCA ####[facility] ([id number])[address] [address]#### CANTGN ####[facility] ([id number])[address] [place] [address] 44670 Eosinophils/100 WBC (Bld) 2.1 % Normal [facility] Comment on above: Performed By: #### C FAITH, 6875-9, CBCA ####[facility] ([id number])[address] [address]#### CANTGN ####[facility] ([id number])[address] [place] [address] 71713 Erythrocyte distribution width (RBC) [Ratio] 16.2 % High 11.5-15.0 [facility] Comment on above: Performed By: #### C FAITH, 6875-9, CBCA ####[facility] ([id number])[address] [place] [address]#### CANTGN ####[facility] ([id number])[address] [place] [address] 05932 Hematocrit (Bld) [Volume fraction] 29.1 % Low 35-47 [facility] Comment on above: Performed By: #### C FAITH, 6875-9, CBCA ####[facility] ([id number])[address] [address]#### CANTGN ####[facility] ([id number])[address] [place] [address] 69888 Hemoglobin (Bld) [Mass/Vol] 9.6 g/dL Low 11.7-15.5 [facility] Comment on above: Performed By: #### Renita CUEVAS, 6875-9, CBCA ####[facility] ([id number])[address] [address]#### CANTGN ####[facility] ([id number])[address] [place] [address] 73352 Lymphocytes (Bld) [#/Vol] 1.4 10*3/uL Normal 1.0-3.5 [facility] Comment on above: Performed By: #### Renita CUEVAS, 6875-9, CBCA ####[facility] ([id number])[address] [place] [address]#### CANTGN ####[facility] ([id number])[address] [place] [address]608 Lymphocytes/100 WBC (Bld) 19.6 % Normal [facility] Comment on above: Performed By: #### Renita CUEVAS, 6875-9, CBCA ####[facility] ([id number])[address] [address]#### CANTGN ####[facility] ([id number])[address] [place] [address] MCH (RBC) [Entitic mass] 27.3 pg Normal 27-34 [facility] Comment on above: Performed By: #### Renita CUEVAS, 6875-9, CBCA ####[facility] ([id number])[address] [address]#### CANTGN ####[facility] ([id number])[address] [place] [address] 80748 MCHC (RBC) [Mass/Vol] 32.9 g/dL Normal 32-36 [facility] Comment on above: Performed By: #### Renita CUEVAS, 6875-9, CBCA ####[facility] ([id number])[address] [address]#### CANTGN ####[facility] ([id number])[address] [place] [address] MCV (RBC) [Entitic vol] 83 fL Normal 80-100 [facility] Comment on above: Performed By: #### Renita CUEVAS, 6875-9, CBCA ####[facility] ([id number])0 [facility] [address] [place] [address]#### CANTGN ####[facility] ([id number])[address] [place] [address] Monocytes (Bld) [#/Vol] 0.8 10*3/uL Normal 0-0.9 [facility] Comment on above: Performed By: #### Renita CUEVAS, 6875-9, CBCA ####[facility] ([id number])[address] [address]#### CANTGN ####[facility] ([id number])[address] [place] [address] Monocytes/100 WBC (Bld) 10.5 % Normal [facility] Comment on above: Performed By: #### Renita CUEVAS, 6875-9, CBCA ####[facility] ([id number])[address] [address]#### CANTGN ####[facility] ([id number])[address] [place] [address] Neutrophils/100 WBC (Bld) 67.2 % Normal [facility] Comment on above: Performed By: #### Renita CUEVAS, 6875-9, CBCA ####[facility] ([id number])[address] [address]#### CANTGN ####[facility] ([id number])[address] [place] [address] Platelet mean volume (Bld) [Entitic vol] 8.5 fL Normal 7-12 [facility] Comment on above: Performed By: #### C FAITH, 6875-9, CBCA ####[facility] ([id number])2130 [facility], [address] [address]#### CANTGN ####[facility] ([id number])[address] [place] [address] 92637 Platelets (Bld) [#/Vol] 333 10*3/uL Normal 150-450 [facility] Comment on above: Performed By: #### Renita CUEVAS, 6875-9, CBCA ####[facility] ([id number])[address] [address]#### CANTGN ####[facility] ([id number])[address] [place] [address] 33101 RBC COUNT 3.50 X10E12/L Low 3.80-5.20 [facility] Comment on above: Performed By: #### Renita CUEVAS, 6875-9, CBCA ####[facility] ([id number])[address] [address]#### CANTGN ####[facility] ([id number])[address] [place] [address] 90054 WBC (Bld) [#/Vol] 7.3 10*3/uL Normal 4.0-11.0 [facility] Comment on above: Performed By: #### Renita CUEVAS, 6875-9, CBCA ####[facility] ([id number])2130 [facility] [address] [place] [address]#### CANTGN ####[facility] ([id number])[address] [place] [address] 16445 COMPREHENSIVE METABOLIC PANE Dickson 01-22-2025 Albumin [Mass/Vol] 3.9 g/dL Normal 3.2-5.3 [facility] Comment on above: Performed By: #### C FAITH, 6875-9, CBCA ####[facility] ([id number])[address], [address] [place] [address] 18[address]#### CANTGN ####[facility] ([id number])[address] [place] [address] 65111 ALP [Catalytic activity/Vol] 102 U/L Normal 39-130 [facility] Comment on above: Performed By: #### Renita CUEVAS, 6875-9, CBCA ####[facility] ([id number])[address], [address] [place] [address] 00295#### CANTGN ####[facility] ([id number])[address] [place] [address] 49433 ALT [Catalytic activity/Vol] 16 U/L Normal 0-31 [facility] Comment on above: Performed By: #### Renita CUEVAS, 6875-9, CBCA ####[facility] ([id number])[address], [address] [place] [address] 20043#### CANTGN ####[facility] ([id number])[address] [place] [address] 94398 Anion gap [Moles/Vol] 11 mmol/L Normal 5-15 [facility] Comment on above: Performed By: #### Renita CUEVAS 6875-9, CBCA ####[facility] ([id number])[address], [address] [place] [address] 32229#### CANTGN ####[facility] ([id number])[address] [place] [address] 08410 AST [Catalytic activity/Vol] 18 U/L Normal 0-41 [facility] Comment on above: Performed By: #### Renita CUEVAS 6875-9, CBCA ####[facility] ([id number])[address], [address] [place] [address] 81773#### CANTGN ####[facility] ([id number])[address] [place] [address] 44257 Bilirubin [Mass/Vol] 0.5 mg/dL Normal 0.3-1.2 [facility] Comment on above: Performed By: #### Renita CUEVAS 6875-9, CBCA ####[facility] ([id number])0 [facility], [address] [place] [address] 0[address]#### CANTGN ####[facility] ([id number])[address] [place] [address] 71945 Calcium [Mass/Vol] 9.6 mg/dL Normal 8.5-10.5 [facility] Comment on above: Performed By: #### Renita CUEVAS 6875-9, CBCA ####[facility] ([id number])0 [facility] [address] [place] [address] 61992#### CANTGN ####[facility] ([id number])[address] [place] [address] 25184 Chloride [Moles/Vol] 96 mmol/L Low 98-109 [facility] Comment on above: Performed By: #### Renita CUEVAS 6875-9, CBCA ####[facility] ([id number])[address], [address] [place] [address] 63625#### CANTGN ####[facility] ([id number])[address] [place] [address] 59639 CO2 [Moles/Vol] 27 mmol/L Normal 22-32 [facility] Comment on above: Performed By: #### C FAITH 6875-9, CBCA ####[facility] ([id number])[address] [address] [place] [address] 19346#### CANTGN ####[facility] ([id number])[address] [place] [address] 39789 Creatinine [Mass/Vol] 1.75 mg/dL High 0.40-1.00 [facility] Comment on above: Result Comment: METH OD TRACEABLE TO IDMS STANDARD Performed By: #### C FAITH 6875-9, CBCA ####[facility] ([id number])[address] [address]#### CANTGN ####[facility] ([id number])[address] [place] [address] 78045 GFR/1.73 sq M.predicted among non-blacks MDRD (S/P/Bld) [Vol rate/Area] 29 mL/min/{1.73_m2} Low >59 [facility] Comment on above: Result Comment: Repo rted eGFR is based on theCKD-EPI 2020 equation that doesnot use a race coefficient. Performed By: #### Renita CUEVAS, 6875-9, CBCA ####[facility] ([id number])[address] [address]#### CANTGN ####[facility] ([id number])[address] [place] [address] 54703 Glucose [Mass/Vol] 291 mg/dL High 65-99 [facility] Comment on above: Performed By: #### Renita CUEVAS, 6875-9, CBCA ####[facility] ([id number])[address] [address]#### CANTGN ####[facility] ([id number])[address] [place] [address] 63829 Potassium [Moles/Vol] 5.1 mmol/L High 3.5-5.0 [facility] Comment on above: Performed By: #### Renita CUEVAS 6875-9, CBCA ####[facility] ([id number])[address] [address]#### CANTGN ####[facility] ([id number])[address] [place] [address] 15914 Protein [Mass/Vol] 7.7 g/dL Normal 6.0-8.0 [facility] Comment on above: Performed By: #### Renita CUEVAS 6875-9, CBCA ####[facility] ([id number])[address] [address]#### CANTGN ####[facility] ([id number])[address] [place] [address] 94180 Sodium [Moles/Vol] 134 mmol/L Normal 134-146 [facility] Comment on above: Performed By: #### Renita CUEVAS 6875-9, CBCA ####[facility] ([id number])[address] [place] [address] 76[address]#### CANTGN ####[facility] ([id number])[address] [place] [address] 62363 Urea nitrogen [Mass/Vol] 31 mg/dL High 5-27 [facility] Comment on above: Performed By: #### Renita CUEVAS 6875-9, CBCA ####[facility] ([id number])[address] [address]#### CANTGN ####[facility] ([id number])[address] [place] [address] 96527 Cancer Ag 15-3 Qnon 01-23-20 25 CA 15 3 13.6 U/mL Normal 0.0-31.3 [facility] Comment on above: Result Comment: The method used for this test is [employer] DXI chemiluminescent immunoassay.Values obtained by different assay methodscannot be used interchangeably. Performed By: #### C MP, 6875-9, CBCA ####[facility] ([id number])[address] [place] [address], [address] [place] [address]#### CANTGN ####[facility] ([id number])[address] [place] [address] 79480 CBC AND AUTO DIFFon 01-10-20 25 ABSOLUTE BASOPHIL 0.0 X10E9/L Normal 0.0-0.2 [facility] Comment on above: Performed By: #### Renita HENSON, 0-3, CMP ####[facility] ([id number])[address] [place] [address] 44472 ABSOLUTE NEUTROPHIL 5.7 X10E9/L Normal 1.5-6.6 [facility] Comment on above: Performed By: #### Renita HENSON, 0-3, CMP ####[facility] ([id number])[address] [place] [address] 06844 Basophils/100 WBC (Bld) 0.4 % Normal [facility] Comment on above: Performed By: #### Renita HENSON, 0-3, CMP ####[facility] ([id number])[address] [place] [address] 88964 Eosinophils (Bld) [#/Vol] 0.0 10*3/uL Normal 0.0-0.4 [facility] Comment on above: Performed By: #### Renita HENSON, 3040-3, CMP ####[facility] ([id number])[address] [place] [address] 77456 Eosinophils/100 WBC (Bld) 0.4 % Normal [facility] Comment on above: Performed By: #### Renita HENSON, 3040-01, CMP ####[facility] ([id number])[address] [place] [address] 53292 Erythrocyte distribution width (RBC) [Ratio] 16.0 % High 11.5-15.0 [facility] Comment on above: Performed By: #### Renita HENSON, 3040-01, CMP ####[facility] ([id number])[address] [place] [address] 41017 Hematocrit (Bld) [Volume fraction] 33.3 % Low 35-47 [facility] Comment on above: Performed By: #### Renita HENSON, 3040-01, CMP ####[facility] ([id number])[address] [place] [address] 60353 Hemoglobin (Bld) [Mass/Vol] 11.0 g/dL Low 11.7-15.5 [facility] Comment on above: Performed By: #### Renita HENSON, 3040-01, CMP ####[facility] ([id number])[address] [place] [address] 21314 Lymphocytes (Bld) [#/Vol] 1.2 10*3/uL Normal 1.0-3.5 [facility] Comment on above: Performed By: #### Renita HENSON, 3040-01, CMP ####[facility] ([id number])[address] [place] [address] 17065 Lymphocytes/100 WBC (Bld) 16.3 % Normal [facility] Comment on above: Performed By: #### Renita HENSON, 3040-01, CMP ####[facility] ([id number])[address] [place] [address] 78817 MCH (RBC) [Entitic mass] 27.5 pg Normal 27-34 [facility] Comment on above: Performed By: #### Renita HENSON, 3040-01, CMP ####[facility] ([id number])[address] [place] [address] [place] [address] MCHC (RBC) [Mass/Vol] 33.0 g/dL Normal 32-36 [facility] Comment on above: Performed By: #### Renita HENSON, 3040-01, CMP ####[facility] ([id number])[address] [place] [address] 70653 MCV (RBC) [Entitic vol] 83 fL Normal 80-100 [facility] Comment on above: Performed By: #### Renita HENSON, 3040-01, CMP ####[facility] ([id number])[address] [place] [address] 38210 Monocytes (Bld) [#/Vol] 0.5 10*3/uL Normal 0-0.9 [facility] Comment on above: Performed By: #### Renita HENSON, 3040-01, CMP ####[facility] ([id number])[address] [place] [address] 31514 Monocytes/100 WBC (Bld) 6.2 % Normal [facility] Comment on above: Performed By: #### Renita HENSON, 3040-01, CMP ####[facility] ([id number])[address] [place] [address] 73689 Neutrophils/100 WBC (Bld) 76.7 % Normal [facility] Comment on above: Performed By: #### Renita HENSON, 3040-01, CMP ####[facility] ([id number])[address] [place] [address] 17205 Platelet mean volume (Bld) [Entitic vol] 7.6 fL Normal 7-12 [facility] Comment on above: Performed By: #### Renita HENSON, 3040-01, CMP ####[facility] ([id number])[address], [place] [address] Platelets (Bld) [#/Vol] 309 10*3/uL Normal 150-450 [facility] Comment on above: Performed By: #### Renita HENSON, 3, CMP ####[facility] ([id number])[address] [place] [address] 79781 RBC COUNT 4.00 X10E12/L Normal 3.80-5.20 [facility] Comment on above: Performed By: #### Renita HENSON, 3040-01, CMP ####[facility] ([id number])[address] [place] [address] 43087 WBC (Bld) [#/Vol] 7.5 10*3/uL Normal 4.0-11.0 [facility] Comment on above: Performed By: #### Renita HENSON, 3040-01, CMP ####[facility] ([id number])[address] [place] [address] 13541 COMPREHENSIVE METABOLIC PANE [facility] 01-10-2025 Albumin [Mass/Vol] 3.9 g/dL Normal 3.2-5.3 [facility] Comment on above: Performed By: #### Renita HENSON, 3040-01, CMP ####[facility] ([id number])[address] [place] [address] 23142 ALP [Catalytic activity/Vol] 110 U/L Normal 39-130 [facility] Comment on above: Performed By: #### Renita HENSON, 3, CMP ####[facility] ([id number])[address] [place] [address] 98543 ALT [Catalytic activity/Vol] 21 U/L Normal 0-31 [facility] Comment on above: Performed By: #### Renita HENSON, 3, CMP ####[facility] ([id number])[address] [place] [address] 84538 Anion gap [Moles/Vol] 12 mmol/L Normal 5-15 [facility] Comment on above: Performed By: #### C BCA, 3, CMP ####[facility] ([id number])[address] [place] [address] [place] [address] AST [Catalytic activity/Vol] 32 U/L Normal 0-41 [facility] Comment on above: Performed By: #### C BCA, 3, CMP ####[facility] ([id number])[address] [place] [address] 30534 Bilirubin [Mass/Vol] 0.6 mg/dL Normal 0.3-1.2 [facility] Comment on above: Performed By: #### Renita BCA, 3040-01, CMP ####[facility] ([id number])[address] [place] [address] 74144 Calcium [Mass/Vol] 9.4 mg/dL Normal 8.5-10.5 [facility] Comment on above: Performed By: #### C BCA, 3, CMP ####[facility] ([id number])[address] [place] [address] 05958 Chloride [Moles/Vol] 98 mmol/L Normal 98-109 [facility] Comment on above: Performed By: #### Renita BCA, 3040-01, CMP ####[facility] ([id number])[address] [place] [address] [place] [address] CO2 [Moles/Vol] 25 mmol/L Normal 22-32 [facility] Comment on above: Performed By: #### C BCA, 3, CMP ####[facility] ([id number])[address] [place] [address] [place] [address] Creatinine [Mass/Vol] 1.32 mg/dL High 0.40-1.00 [facility] Comment on above: Result Comment: METH OD TRACEABLE TO IDMS STANDARD Performed By: #### Renita BCA, 3040-3, CMP ####[facility] ([id number])[address] [place] [address] 41138 GFR/1.73 sq M.predicted among non-blacks MDRD (S/P/Bld) [Vol rate/Area] 41 mL/min/{1.73_m2} Low >59 [facility] Comment on above: Result Comment: Repo rted eGFR is based on theCKD-EPI 2020 equation that doesnot use a race coefficient. Performed By: #### C NATIVIDAD, 3040-01, CMP ####[facility] ([id number])[address] [place] [address] 94195 Glucose [Mass/Vol] 130 mg/dL High 65-99 [facility] Comment on above: Performed By: #### C NATIVIDAD, 3040-01, CMP ####[facility] ([id number])[address] [place] [address] 51162 Potassium [Moles/Vol] 4.6 mmol/L Normal 3.5-5.0 [facility] Comment on above: Performed By: #### C NATIVIDAD, 3040-01, CMP ####[facility] ([id number])[address] [place] [address] 10385 Protein [Mass/Vol] 8.4 g/dL High 6.0-8.0 [facility] Comment on above: Performed By: #### C NATIVIDAD, 3040-01, CMP ####[facility] ([id number])[address] [place] [address] 36187 Sodium [Moles/Vol] 135 mmol/L Normal 134-146 [facility] Comment on above: Performed By: #### C NATIVIDAD, 3040-01, CMP ####[facility] ([id number])[address] [place] [address] 96791 Urea nitrogen [Mass/Vol] 26 mg/dL Normal 5-27 [facility] Comment on above: Performed By: #### C NATIVIDAD, 3040-3, CMP ####[facility] ([id number])[address] [place] [address] ABDOMEN AND PELVIS W CONT on 01-10-2025 CT ABDOMEN AND PELVIS W CONT Normal [facility] LIPASEon 01-10-2025 Lipase [Catalytic activity/Vol] 27 U/L Normal 17-40 [facility] Comment on above: Performed By: #### C NATIVIDAD, 3040-3, CMP ####[facility] ([id number])[address] [place] [address] 98661 URINE CULTUREon 01-10-2025 Bacteria identified Cx Nom (U) CULTURE RESULTS >100,000 ORGANISMS/ML NORMAL UROGENITAL BAILEY Normal [facility] Comment on above: Performed By: #### 6 30-4 ####[facility] ([id number])[address] [facility], [address] [address] URN MACROSCOPIC NURon 2024 BILIRUBIN MARYJO Negative Normal NEG [facility] Comment on above: Performed By: #### N UM ####[facility] ([id number])[address] [place] [address] 15505 BLOOD/HGB MARYJO MODERATE Abnormal NEG [facility] Comment on above: Performed By: #### N UM ####[facility] ([id number])[address] [place] [address] [place] [address] GLUCOSE MARYJO Negative Normal NEG [facility] Comment on above: Performed By: #### N UM ####[facility] ([id number])[address] [place] [address] 49747 KETONES MARYJO Negative Normal NEG [facility] Comment on above: Performed By: #### N UM ####[facility] ([id number])[address] [place] [address] 46769 LEUKOCYTE ESTERASE MARYJO Trace Abnormal NEG [facility] Comment on above: Performed By: #### N UM ####[facility] ([id number])[address] [place] [address] 40901 NITRITE MARYJO Positive Abnormal NEG [facility] Comment on above: Performed By: #### N UM ####[facility] ([id number])[address] [place] [address] 80732 PH MARYJO 5.5 Normal 5.0-8.5 [facility] Comment on above: Performed By: #### N UM ####[facility] ([id number])[address] [place] [address] 99209 PROTEIN MARYJO 100 mg/dL Abnormal NEG [facility] Comment on above: Performed By: #### N UM ####[facility] ([id number])[address] [place] [address] 89308 SPECIFIC GRAVITY MARYJO >=1.030 Normal 1.003-1.[address] [place] [address] Comment on above: Performed By: #### N UM ####[facility] ([id number])[address] [place] [address] 08454 UROBILINOGEN MARYJO 0.2 eu/dL Normal <1.1 [facility] Comment on above: Performed By: #### N UM ####[facility] ([id number])[address] [place] [address] 60864 CBC AND AUTO DIFFon 01-03-20 25 ABSOLUTE BASOPHIL 0.0 X10E9/L Normal 0.0-0.2 [facility] Comment on above: Performed By: #### 2 639-3, 54310-3, 2157-6, CBCA, PINR, CMP ####[facility] ([id number])[address] [place] [address] 59156 ABSOLUTE NEUTROPHIL 5.7 X10E9/L Normal 1.5-6.6 [facility] Comment on above: Performed By: #### 2 639-3, 67205-6, 2157-04, CBCA, PINR, CMP ####[facility] ([id number])[address] [place] [address] 51180 Basophils/100 WBC (Bld) 0.3 % Normal [facility] Comment on above: Performed By: #### 2 639-3, 93319-2, 2157-04, CBCA, PINR, CMP ####[facility] ([id number])[address] [place] [address] 11626 Eosinophils (Bld) [#/Vol] 0.1 10*3/uL Normal 0.0-0.4 [facility] Comment on above: Performed By: #### 2 639-3, 50639-7, 2157-04, CBCA, PINR, CMP ####[facility] ([id number])[address] [place] [address] 35283 Eosinophils/100 WBC (Bld) 0.8 % Normal [facility] Comment on above: Performed By: #### 2 639-3, 74724-7, 2157-04, CBCA, PINR, CMP ####[facility] ([id number])[address] [place] [address] 21720 Erythrocyte distribution width (RBC) [Ratio] 16.0 % High 11.5-15.0 [facility] Comment on above: Performed By: #### 2 639-3, 25381-5, 2157-04, CBCA, PINR, CMP ####[facility] ([id number])[address] [place] [address] 28632 Hematocrit (Bld) [Volume fraction] 33.4 % Low 35-47 [facility] Comment on above: Performed By: #### 2 639-3, 67615-6, 2157-04, CBCA, PINR, CMP ####[facility] ([id number])[address] [place] [address] 20026 Hemoglobin (Bld) [Mass/Vol] 11.0 g/dL Low 11.7-15.5 [facility] Comment on above: Performed By: #### 2 639-3, 93132-7, 2157-04, CBCA, PINR, CMP ####[facility] ([id number])[address] [place] [address] 75565 Lymphocytes (Bld) [#/Vol] 1.2 10*3/uL Normal 1.0-3.5 [facility] Comment on above: Performed By: #### 2 639-3, 51327-0, 2157-04, CBCA, PINR, CMP ####[facility] ([id number])[address] [place] [address] 43865 Lymphocytes/100 WBC (Bld) 15.7 % Normal [facility] Comment on above: Performed By: #### 2 639-3, 72231-0, 2157-04, CBCA, PINR, CMP ####[facility] ([id number])[address] [place] [address] 62604 MCH (RBC) [Entitic mass] 27.4 pg Normal 27-34 [facility] Comment on above: Performed By: #### 2 639-3, 25059-3, 2157-04, CBCA, PINR, CMP ####[facility] ([id number])[address] [place] [address] 49206 MCHC (RBC) [Mass/Vol] 32.8 g/dL Normal 32-36 [facility] Comment on above: Performed By: #### 2 639-3, 36768-5, 2157-04, CBCA, PINR, CMP ####[facility] ([id number])[address] [place] [address] 59900 MCV (RBC) [Entitic vol] 83 fL Normal 80-100 [facility] Comment on above: Performed By: #### 2 639-3, 79896-3, 2157-04, CBCA, PINR, CMP ####[facility] ([id number])[address] [place] [address] 73626 Monocytes (Bld) [#/Vol] 0.7 10*3/uL Normal 0-0.9 [facility] Comment on above: Performed By: #### 2 639-3, 00945-0, 2157-04, CBCA, PINR, CMP ####[facility] ([id number])[address] [place] [address] 23770 Monocytes/100 WBC (Bld) 8.9 % Normal [facility] Comment on above: Performed By: #### 2 639-3, 55452-9, 2157-04, CBCA, PINR, CMP ####[facility] ([id number])[address] [place] [address] 95006 Neutrophils/100 WBC (Bld) 74.3 % Normal [facility] Comment on above: Performed By: #### 2 639-3, 56074-5, 2157-04, CBCA, PINR, CMP ####[facility] ([id number])[address] [place] [address] 99565 Platelet mean volume (Bld) [Entitic vol] 8.1 fL Normal 7-12 [facility] Comment on above: Performed By: #### 2 639-3, 77991-9, 2157-04, CBCA, PINR, CMP ####[facility] ([id number])[address] [place] [address] 10109 Platelets (Bld) [#/Vol] 295 10*3/uL Normal 150-450 [facility] Comment on above: Performed By: #### 2 639-3, 28161-8, 2157-04, CBCA, PINR, CMP ####[facility] ([id number])[address] [place] [address] 78867 RBC COUNT 4.01 X10E12/L Normal 3.80-5.20 [facility] Comment on above: Performed By: #### 2 639-3, 00692-2, 2157-04, CBCA, PINR, CMP ####[facility] ([id number])[address] [place] [address] 88022 WBC (Bld) [#/Vol] 7.7 10*3/uL Normal 4.0-11.0 [facility] Comment on above: Performed By: #### 2 639-3, 42944-1, 2157-04, CBCA, PINR, CMP ####[facility] ([id number])[address] [place] [address] 72949 CK [Catalytic activity/Vol]o n 01-03-2025 CPK 66 U/L Normal 24-170 [facility] Comment on above: Performed By: #### 2 639-3, 40197-6, 2157-04, CBCA, PINR, CMP ####[facility] ([id number])[address] [place] [address] 39560 COMPREHENSIVE METABOLIC PANE Dickson 01-03-2025 Albumin [Mass/Vol] 3.8 g/dL Normal 3.2-5.3 [facility] Comment on above: Performed By: #### 2 639-3, 69819-0, 2157-04, CBCA, PINR, CMP ####[facility] ([id number])[address] [place] [address] 71858 ALP [Catalytic activity/Vol] 110 U/L Normal 39-130 [facility] Comment on above: Performed By: #### 2 639-3, 75883-8, 2157-04, CBCA, PINR, CMP ####[facility] ([id number])[address] [place] [address] 81344 ALT [Catalytic activity/Vol] 13 U/L Normal 0-31 [facility] Comment on above: Performed By: #### 2 639-3, 32522-9, 2157-04, CBCA, PINR, CMP ####[facility] ([id number])[address] [place] [address] 81627 Anion gap [Moles/Vol] 11 mmol/L Normal 5-15 [facility] Comment on above: Performed By: #### 2 639-3, 39082-2, 2157-04, CBCA, PINR, CMP ####[facility] ([id number])[address] [place] [address] 69181 AST [Catalytic activity/Vol] 24 U/L Normal 0-41 [facility] Comment on above: Performed By: #### 2 639-3, 83628-1, 2157-04, CBCA, PINR, CMP ####[facility] ([id number])[address] [place] [address] 28620 Bilirubin [Mass/Vol] 0.4 mg/dL Normal 0.3-1.2 [facility] Comment on above: Performed By: #### 2 639-3, 35902-9, 2157-04, CBCA, PINR, CMP ####[facility] ([id number])[address] [place] [address] 07473 Calcium [Mass/Vol] 9.3 mg/dL Normal 8.5-10.5 [facility] Comment on above: Performed By: #### 2 639-3, 59554-4, 2157-04, CBCA, PINR, CMP ####[facility] ([id number])[address] [place] [address] 64080 Chloride [Moles/Vol] 101 mmol/L Normal 98-109 [facility] Comment on above: Performed By: #### 2 639-3, 37751-8, 2157-04, CBCA, PINR, CMP ####[facility] ([id number])[address] [place] [address] 59544 CO2 [Moles/Vol] 27 mmol/L Normal 22-32 [facility] Comment on above: Performed By: #### 2 639-3, 14467-5, 2157-04, CBCA, PINR, CMP ####[facility] ([id number])[address] [place] [address] 03649 Creatinine [Mass/Vol] 1.25 mg/dL High 0.40-1.00 [facility] Comment on above: Result Comment: METH OD TRACEABLE TO IDMS STANDARD Performed By: #### 2 639-3, 42807-6, 2157-04, CBCA, PINR, CMP ####[facility] ([id number])[address] [place] [address] 81940 GFR/1.73 sq M.predicted among non-blacks MDRD (S/P/Bld) [Vol rate/Area] 44 mL/min/{1.73_m2} Low >59 [facility] Comment on above: Result Comment: Repo rted eGFR is based on theCKD-EPI 2020 equation that doesnot use a race coefficient. Performed By: #### 2 639-3, 40706-6, 2157-04, CBCA, PINR, CMP ####[facility] ([id number])[address] [place] [address] 74202 Glucose [Mass/Vol] 48 mg/dL Critically low 65-99 [facility] Comment on above: Performed By: #### 2 639-3, 48573-2, 2157-04, CBCA, PINR, CMP ####[facility] ([id number])[address] [place] [address] 89151 Potassium [Moles/Vol] 3.9 mmol/L Normal 3.5-5.0 [facility] Comment on above: Performed By: #### 2 639-3, 85556-3, 2157-04, CBCA, PINR, CMP ####[facility] ([id number])[address] [place] [address] 71519 Protein [Mass/Vol] 7.9 g/dL Normal 6.0-8.0 [facility] Comment on above: Performed By: #### 2 639-3, 88356-2, 2157-04, CBCA, PINR, CMP ####[facility] ([id number])[address] [place] [address] 18276 Sodium [Moles/Vol] 139 mmol/L Normal 134-146 [facility] Comment on above: Performed By: #### 2 639-3, 99063-8, 2157-04, CBCA, PINR, CMP ####[facility] ([id number])[address] [place] [address] 65734 Urea nitrogen [Mass/Vol] 18 mg/dL Normal 5-27 [facility] Comment on above: Performed By: #### 2 639-3, 44112-0, 2157-04, CBCA, PINR, CMP ####[facility] ([id number])[address] [place] [address] BRAIN WO CONTon CT BRAIN WO CONT Normal [facility] CT CERVICAL SPINE WO CONTon 01-03-2025 CT CERVICAL SPINE WO CONT Normal [facility] Glucose Glucometer (BldC) [M ass/Vol]on 01-03-2025 Glucose [Mass/Vol] 231 mg/dL High 65-99 [facility] Glucose [Mass/Vol] 196 mg/dL High 65-99 [facility] Glucose [Mass/Vol] 66 mg/dL Normal 65-99 [facility] Glucose [Mass/Vol] 72 mg/dL Normal 65-99 [facility] Glucose [Mass/Vol] 86 mg/dL Normal 65-99 [facility] Glucose [Mass/Vol] 49 mg/dL Critically low 65-99 [facility] Myoglobin [Mass/Vol]on 01-03 SERUM MYOGLOBIN 67.6 ng/mL High 14.3-65.8 [facility] Comment on above: Performed By: #### 2 639-3, 96133-7, 2157-04, CBCA, PINR, CMP ####[facility] ([id number])[address] [place] [address] 73378 PROTIME AND INRon 01-03-2025 INR Coag (PPP) [Relative time] 1.0 {INR} Normal 0.8-1.1 [facility] Comment on above: Performed By: #### 2 639-3, 81378-9, 2157-04, CBCA, PINR, CMP ####[facility] ([id number])[address] [place] [address] 49161 PT Coag (PPP) [Time] 12.1 s Normal 9.8-13.2 [facility] Comment on above: Result Comment: NEW REFERENCE RANGE Performed By: #### 2 639-3, 99856-1, 7, CBCA, PINR, CMP ####[facility] ([id number])[address] [place] [address] 47825 Troponin I.cardiac High sens itivity method [Mass/Vol]on 01-03-2025 1 HOUR TROP I, HIGH SENSITIVITY 15 ng/L Normal <16 [facility] Comment on above: Performed By: #### 8 9579-7 ####[facility] ([id number])[address] [place] [address] [place] [address] TROPONIN I, HIGH SENSITIVITY 11 ng/L Normal <16 [facility] Comment on above: Performed By: #### 2 639-3, 50367-1, 2157-6, CBCA, PINR, CMP ####[facility] ([id number])[address] [place] [address] [place] [address] URN MACROSCOPIC NURon 2024 BILIRUBIN MARYJO Negative Normal NEG [facility] Comment on above: Performed By: #### N UM ####[facility] ([id number])[address] [place] [address] [place] [address] BLOOD/HGB MARYJO Trace Abnormal NEG [facility] Comment on above: Performed By: #### N UM ####[facility] ([id number])[address] [place] [address] [place] [address] GLUCOSE MARYJO 100 mg/dL Abnormal NEG [facility] Comment on above: Performed By: #### N UM ####[facility] ([id number])[address] [place] [address] [place] [address] KETONES MARYJO Negative Normal NEG [facility] Comment on above: Performed By: #### N UM ####[facility] ([id number])[address] [place] [address] [place] [address] LEUKOCYTE ESTERASE MARYJO Small Abnormal NEG [facility] Comment on above: Performed By: #### N UM ####[facility] ([id number])[address] [place] [address] [place] [address] NITRITE MARYJO Negative Normal NEG [facility] Comment on above: Performed By: #### N UM ####[facility] ([id number])[address] [place] [address] [place] [address] PH MARYJO 6.0 Normal 5.0-8.5 [facility] Comment on above: Performed By: #### N UM ####[facility] ([id number])[address] [place] [address] 52477 PROTEIN MARYJO 30 mg/dL Abnormal NEG [facility] Comment on above: Performed By: #### N UM ####[facility] ([id number])[address] [place] [address] 52624 SPECIFIC GRAVITY MARYJO 1.025 Normal 1.003-1.03 5 [facility] Comment on above: Performed By: #### N UM ####[facility] ([id number])[address] [place] [address] 08311 UROBILINOGEN MARYJO 0.2 eu/dL Normal <1.1 [facility] Comment on above: Performed By: #### N UM ####[facility] ([id number])[address] [place] [address] 41747 CBC AND AUTO DIFFon 12-04- 25 ABSOLUTE BASOPHIL 0.0 X10E9/L Normal 0.0-0.2 [facility] Comment on above: Performed By: #### C MP, CBCA, HA1C, 24925-2 ####[facility] ([id number])[address], [place] [address] ABSOLUTE NEUTROPHIL 3.3 X10E9/L Normal 1.5-6.6 [facility] Comment on above: Performed By: #### C MP, CBCA, HA1C, 06731-3 ####[facility] ([id number])[address], [address], [place] [address] Basophils/100 WBC (Bld) 0.7 % Normal [facility] Comment on above: Performed By: #### C MP, CBCA, HA1C, 49916-1 ####[facility] ([id number])[address], [address], [place] [address] Eosinophils (Bld) [#/Vol] 0.2 10*3/uL Normal 0.0-0.4 [facility] Comment on above: Performed By: #### C MP, CBCA, HA1C, 68495-7 ####[facility] ([id number])[address] [address] Eosinophils/100 WBC (Bld) 3.9 % Normal [facility] Comment on above: Performed By: #### C MP, CBCA, HA1C, 08153-8 ####[facility] ([id number])[address] [address] Erythrocyte distribution width (RBC) [Ratio] 15.7 % High 11.5-15.0 [facility] Comment on above: Performed By: #### C MP, CBCA, HA1C, 04451-3 ####[facility] ([id number])[address] [address] Hematocrit (Bld) [Volume fraction] 32.2 % Low 35-47 [facility] Comment on above: Performed By: #### C MP, CBCA, HA1C, 55750-4 ####[facility] ([id number])[address] [address] Hemoglobin (Bld) [Mass/Vol] 10.4 g/dL Low 11.7-15.5 [facility] Comment on above: Performed By: #### C MP, CBCA, HA1C, 80080-4 ####[facility] ([id number])[address] [address] Lymphocytes (Bld) [#/Vol] 1.5 10*3/uL Normal 1.0-3.5 [facility] Comment on above: Performed By: #### C MP, CBCA, HA1C, 06295-1 ####[facility] ([id number])[address] [address] [address] Lymphocytes/100 WBC (Bld) 26.6 % Normal [facility] Comment on above: Performed By: #### C MP, CBCA, HA1C, 99879-8 ####[facility] ([id number])[address] [address], [place] [address] MCH (RBC) [Entitic mass] 27.9 pg Normal 27-34 [facility] Comment on above: Performed By: #### C MP, CBCA, HA1C, 90440-1 ####[facility] ([id number])[address] [address] [address] MCHC (RBC) [Mass/Vol] 32.2 g/dL Normal 32-36 [facility] Comment on above: Performed By: #### C MP, CBCA, HA1C, 38100-1 ####[facility] ([id number])[address] [address] [address] MCV (RBC) [Entitic vol] 86 fL Normal 80-100 [facility] Comment on above: Performed By: #### C MP, CBCA, HA1C, 84767-6 ####[facility] ([id number])[address] [address], [place] [address] Monocytes (Bld) [#/Vol] 0.5 10*3/uL Normal 0-0.9 [facility] Comment on above: Performed By: #### C MP, CBCA, HA1C, 83811-5 ####[facility] ([id number])[address] [address] [address] Monocytes/100 WBC (Bld) 9.4 % Normal [facility] Comment on above: Performed By: #### C MP, CBCA, HA1C, 56848-0 ####[facility] ([id number])[address] [place] [address] Neutrophils/100 WBC (Bld) 59.4 % Normal [facility] Comment on above: Performed By: #### C MP, CBCA, HA1C, 21719-1 ####[facility] ([id number])[address] [address], [place] [address] Platelet mean volume (Bld) [Entitic vol] 8.9 fL Normal 7-12 [facility] Comment on above: Performed By: #### C MP, CBCA, HA1C, 95535-6 ####[facility] ([id number])[address] [address] Platelets (Bld) [#/Vol] 266 10*3/uL Normal 150-450 [facility] Comment on above: Performed By: #### C MP, CBCA, HA1C, 87908-3 ####[facility] ([id number])[address] [address] RBC COUNT 3.72 X10E12/L Low 3.80-5.20 [facility] Comment on above: Performed By: #### C MP, CBCA, HA1C, 37576-1 ####[facility] ([id number])[address] [address] WBC (Bld) [#/Vol] 5.6 10*3/uL Normal 4.0-11.0 [facility] Comment on above: Performed By: #### C MP, CBCA, HA1C, 29590-9 ####[facility] ([id number])[address] [address], [place] [address] COMPREHENSIVE METABOLIC PANE Dickson 12-04-2024 Albumin [Mass/Vol] 3.7 g/dL Normal 3.2-5.3 [facility] Comment on above: Performed By: #### C MP, CBCA, HA1C, 26541-0 ####[facility] ([id number])[address], [place] [address] ALP [Catalytic activity/Vol] 84 U/L Normal 39-130 [facility] Comment on above: Performed By: #### C MP, CBCA, HA1C, 07493-4 ####[facility] ([id number])[address], [address], [place] [address] ALT [Catalytic activity/Vol] 11 U/L Normal 0-31 [facility] Comment on above: Performed By: #### C MP, CBCA, HA1C, 81306-5 ####[facility] ([id number])[address], [address], [place] [address] Anion gap [Moles/Vol] 7 mmol/L Normal 5-15 [facility] Comment on above: Performed By: #### C MP, CBCA, HA1C, 63961-6 ####[facility] ([id number])[address], [address], [place] [address] AST [Catalytic activity/Vol] 25 U/L Normal 0-41 [facility] Comment on above: Performed By: #### C MP, CBCA, HA1C, 47987-3 ####[facility] ([id number])[address], [address], [place] [address] Bilirubin [Mass/Vol] 0.3 mg/dL Normal 0.3-1.2 [facility] Comment on above: Performed By: #### C MP, CBCA, HA1C, 52724-2 ####[facility] ([id number])[address], [place] [address] Calcium [Mass/Vol] 9.0 mg/dL Normal 8.5-10.5 [facility] Comment on above: Performed By: #### C MP, CBCA, HA1C, 59232-7 ####[facility] ([id number])[address] [address], [place] [address] Chloride [Moles/Vol] 103 mmol/L Normal 98-109 [facility] Comment on above: Performed By: #### C CARMEN CUEVAS, MARILU1C, 62014-3 ####[facility] ([id number])[address] [address], [place] [address] CO2 [Moles/Vol] 28 mmol/L Normal 22-32 [facility] Comment on above: Performed By: #### C CARMEN CUEVAS, WALLY, 31927-2 ####[facility] ([id number])[address] [address], [place] [address] Creatinine [Mass/Vol] 1.40 mg/dL High 0.40-1.00 [facility] Comment on above: Result Comment: METH OD TRACEABLE TO IDMS STANDARD Performed By: #### C CARMEN CUEVAS HA1C, 82141-0 ####[facility] ([id number])[address] [address], [place] [address] GFR/1.73 sq M.predicted among non-blacks MDRD (S/P/Bld) [Vol rate/Area] 39 mL/min/{1.73_m2} Low >59 [facility] Comment on above: Result Comment: Repo rted eGFR is based on theCKD-EPI 2020 equation that doesnot use a race coefficient. Performed By: #### C CARMEN CUEVAS, WALLY, 69689-7 ####[facility] ([id number])[address] [address], [place] [address] Glucose [Mass/Vol] 201 mg/dL High 65-99 [facility] Comment on above: Performed By: #### C CARMEN CUEVAS, HA1C, 76740-9 ####[facility] ([id number])[address] [address], [place] [address] Potassium [Moles/Vol] 5.5 mmol/L High 3.5-5.0 [facility] Comment on above: Performed By: #### C FAITH, CBCA, HA1C, 67367-6 ####[facility] ([id number])[address] [address] Protein [Mass/Vol] 6.9 g/dL Normal 6.0-8.0 [facility] Comment on above: Performed By: #### C FAITH, CBCA, HA1C, 23284-7 ####[facility] ([id number])[address] [address] Sodium [Moles/Vol] 138 mmol/L Normal 134-146 [facility] Comment on above: Performed By: #### C FAITH, CBCA, HA1C, 95866-1 ####[facility] ([id number])[address], [place] [address] Urea nitrogen [Mass/Vol] 18 mg/dL Normal 5-27 [facility] Comment on above: Performed By: #### C FAITH, CBCA, HA1C, 13373-1 ####[facility] ([id number])[address], [place] [address] HGB A1C (GLYCO-HGB)on 2024 Glucose [Mass/Vol] 217 mg/dL Normal [facility] Comment on above: Performed By: #### C MP, CBCA, HA1C, 89726-7 ####[facility] ([id number])[address], [place] [address] HbA1c (Bld) [Mass fraction] 9.2 % High 4.4-5.6 [facility] Comment on above: Result Comment: NOTE ADA Guidelines Result HgbA1c Normal : less than 5.7 % Prediabetes : 5.7 % to 6.4 % Diabetes : > 6.4 %Use with caution in patients with abnormal hemoglobin variants asthe half-life of red blood cells and in vivo glycation rates areaffected. Performed By: #### C CARMEN CUEVAS, HADedrick, 68100-2 ####[facility] ([id number])[address], [place] [address] Lipid 1996 panelon 5 Cholesterol [Mass/Vol] 133 mg/dL Low 150-200 [facility] Comment on above: Performed By: #### C FAITH, CARMEN, HADedrick, 92161-5 ####[facility] ([id number])[address], [address] [place] [address], [place] [address] Cholesterol in HDL [Mass/Vol] 47 mg/dL Normal >39 [facility] Comment on above: Result Comment: HDL <40 mg/dL - High RiskHDL > or = 40mg/dL- DesirableHDL >60 mg/dL - Negative Risk Performed By: #### C FAITH, CARMEN, HA1C, 54489-9 ####[facility] ([id number])[address] [address] [place] [address], [place] [address] Cholesterol in LDL [Mass/Vol] 70 mg/dL Normal <130 [facility] Comment on above: Result Comment: LDL <100 mg/dL - DesirableLDL >160 mg/dL - High Risk Performed By: #### C FAITH, INOA, HA1C, 30828-8 ####[facility] ([id number])[address] [address], [place] [address] Cholesterol in VLDL [Mass/Vol] 16 mg/dL Normal 0-30 [facility] Comment on above: Performed By: #### C MP, CBCA, HA1C, 01472-8 ####[facility] ([id number])[address], [address] [place] [address] CHOLESTEROL:HDL 2.8 Normal 1.0-5.0 [facility] Comment on above: Performed By: #### C MP, CBCA, HA1C, 76418-1 ####[facility] ([id number])[address], [address] [place] [address] Triglyceride [Mass/Vol] 82 mg/dL Normal 27-150 [facility] Comment on above: Performed By: #### C MP, CBCA, HA1C, 85163-6 ####[facility] ([id number])[address], [address] [address] CBC AND AUTO DIFFon 11-19-19 25 ABSOLUTE BASOPHIL 0.0 X10E9/L Normal 0.0-0.2 [facility] Comment on above: Performed By: #### C FAITH, 45030-5, CBCA, 29066-6, 90539-0, PINR ####[facility] ([id number])[address] [place] [address] ABSOLUTE NEUTROPHIL 5.1 X10E9/L Normal 1.5-6.6 [facility] Comment on above: Performed By: #### [place], 39122-3, CBCA, 09474-7, 01440-5, PINR ####[facility] ([id number])[address] [place] [address] Basophils/100 WBC (Bld) 0.4 % Normal [facility] Comment on above: Performed By: #### C MP, 50323-8, CBCA, 71748-0, 01209-3, PINR ####[facility] ([id number])[address] [place] [address] [place] [address] Eosinophils (Bld) [#/Vol] 0.1 10*3/uL Normal 0.0-0.4 [facility] Comment on above: Performed By: #### C FAITH, 87394-6, CBCA, 44297-9, 46209-3, PINR ####[facility] ([id number])[address] [place] [address] Eosinophils/100 WBC (Bld) 1.7 % Normal [facility] Comment on above: Performed By: #### C FAITH, 02463-8, CBCA, 75018-4, 56245-0, PINR ####[facility] ([id number])[address] [place] [address] Erythrocyte distribution width (RBC) [Ratio] 15.9 % High 11.5-15.0 [facility] Comment on above: Performed By: #### C FAITH, 14046-5, CBCA, 25597-1, 88928-1, PINR ####[facility] ([id number])[address] [place] [address] Hematocrit (Bld) [Volume fraction] 34.2 % Low 35-47 [facility] Comment on above: Performed By: #### C FAITH, 31979-3, CBCA, 70523-0, 50714-3, PINR ####[facility] ([id number])[address] [place] [address] Hemoglobin (Bld) [Mass/Vol] 11.1 g/dL Low 11.7-15.5 [facility] Comment on above: Performed By: #### C FAITH, 31113-0, CBCA, 03039-9, 77647-8, PINR ####[facility] ([id number])[address] [place] [address] 68459 Lymphocytes (Bld) [#/Vol] 1.6 10*3/uL Normal 1.0-3.5 [facility] Comment on above: Performed By: #### C MP, 91670-2, CBCA, 39520-7, 37744-3, PINR ####[facility] ([id number])[address] [place] [address] 43233 Lymphocytes/100 WBC (Bld) 20.5 % Normal [facility] Comment on above: Performed By: #### C MP, 76964-3, CBCA, 77334-4, 80381-9, PINR ####[facility] ([id number])[address] [place] [address] 58123 MCH (RBC) [Entitic mass] 27.5 pg Normal 27-34 [facility] Comment on above: Performed By: #### C FAITH, 47995-9, CBCA, 70545-7, 54189-2, PINR ####[facility] ([id number])[address] [place] [address] 42190 MCHC (RBC) [Mass/Vol] 32.6 g/dL Normal 32-36 [facility] Comment on above: Performed By: #### C FAITH, 56539-2, CBCA, 61950-8, 79645-4, PINR ####[facility] ([id number])[address] [place] [address] 41954 MCV (RBC) [Entitic vol] 85 fL Normal 80-100 [facility] Comment on above: Performed By: #### C MP, 77715-8, CBCA, 10095-6, 40124-2, PINR ####[facility] ([id number])[address] [place] [address] 60983 Monocytes (Bld) [#/Vol] 0.9 10*3/uL Normal 0-0.9 [facility] Comment on above: Performed By: #### C FAITH, 57889-2, CBCA, 59664-4, 22666-6, PINR ####[facility] ([id number])[address] [place] [address] 18553 Monocytes/100 WBC (Bld) 11.4 % Normal [facility] Comment on above: Performed By: #### C MP, 45137-7, CBCA, 26670-9, 77539-3, PINR ####[facility] ([id number])[address] [place] [address] 83353 Neutrophils/100 WBC (Bld) 66.0 % Normal [facility] Comment on above: Performed By: #### C MP, 36578-2, CBCA, 19940-5, 15772-0, PINR ####[facility] ([id number])[address] [place] [address] 07616 Platelet mean volume (Bld) [Entitic vol] 8.0 fL Normal 7-12 [facility] Comment on above: Performed By: #### C MP, 78622-3, CBCA, 87849-0, 20810-2, PINR ####[facility] ([id number])[address] [place] [address] 01836 Platelets (Bld) [#/Vol] 342 10*3/uL Normal 150-450 [facility] Comment on above: Performed By: #### [place], 98471-9, CBCA, 73874-9, 00206-3, PINR ####[facility] ([id number])[address] [place] [address] 16634 RBC COUNT 4.04 X10E12/L Normal 3.80-5.20 [facility] Comment on above: Performed By: #### C MP, 62333-7, CBCA, 33929-1, 30278-0, PINR ####[facility] ([id number])[address] [place] [address] 79822 WBC (Bld) [#/Vol] 7.7 10*3/uL Normal 4.0-11.0 [facility] Comment on above: Performed By: #### C MP, 49662-0, CBCA, 28848-5, 22948-2, PINR ####[facility] ([id number])[address] [place] [address] 06761 COMPREHENSIVE METABOLIC PANE Dickson 11-19-2024 Albumin [Mass/Vol] 4.1 g/dL Normal 3.2-5.3 [facility] Comment on above: Performed By: #### C MP, 20555-9, CBCA, 36056-2, 68207-4, PINR ####[facility] ([id number])[address] [place] [address] 20432 ALP [Catalytic activity/Vol] 108 U/L Normal 39-130 [facility] Comment on above: Performed By: #### C FAITH, 16927-5, CBCA, 86430-0, 81366-3, PINR ####[facility] ([id number])[address] [place] [address] 71255 ALT [Catalytic activity/Vol] 18 U/L Normal 0-31 [facility] Comment on above: Performed By: #### C FAITH, 05550-3, CBCA, 03307-1, 91811-2, PINR ####[facility] ([id number])[address] [place] [address] 39456 Anion gap [Moles/Vol] 11 mmol/L Normal 5-15 [facility] Comment on above: Performed By: #### C MP, 51254-1, CBCA, 83857-6, 47036-5, PINR ####[facility] ([id number])[address] [place] [address] 23891 AST [Catalytic activity/Vol] 24 U/L Normal 0-41 [facility] Comment on above: Performed By: #### C MP, 17014-0, CBCA, 81396-7, 02534-1, PINR ####[facility] ([id number])[address] [place] [address] 79363 Bilirubin [Mass/Vol] 0.6 mg/dL Normal 0.3-1.2 [facility] Comment on above: Performed By: #### C MP, 78400-3, CBCA, 38260-7, 23038-4, PINR ####[facility] ([id number])[address] [place] [address] 10606 Calcium [Mass/Vol] 9.2 mg/dL Normal 8.5-10.5 [facility] Comment on above: Performed By: #### C MP, 95209-0, CBCA, 94603-5, 73409-6, PINR ####[facility] ([id number])[address] [place] [address] 31475 Chloride [Moles/Vol] 99 mmol/L Normal 98-109 [facility] Comment on above: Performed By: #### C MP, 85902-9, CBCA, 98470-9, 07374-3, PINR ####[facility] ([id number])[address] [place] [address] 82441 CO2 [Moles/Vol] 26 mmol/L Normal 22-32 [facility] Comment on above: Performed By: #### C MP, 84022-4, CBCA, 33658-2, 98959-0, PINR ####[facility] ([id number])[address] [place] [address] 90703 Creatinine [Mass/Vol] 1.67 mg/dL High 0.40-1.00 [facility] Comment on above: Result Comment: METH OD TRACEABLE TO IDMS STANDARD Performed By: #### C MP, 86927-1, CBCA, 78642-2, 66913-8, PINR ####[facility] ([id number])[address] [place] [address] 53381 GFR/1.73 sq M.predicted among non-blacks MDRD (S/P/Bld) [Vol rate/Area] 31 mL/min/{1.73_m2} Low >59 [facility] Comment on above: Result Comment: Repo rted eGFR is based on theCKD-EPI 2020 equation that doesnot use a race coefficient. Performed By: #### C FAITH, 52171-5, CBCA, 72648-5, 74070-9, PINR ####[facility] ([id number])[address] [place] [address] 20698 Glucose [Mass/Vol] 239 mg/dL High 65-99 [facility] Comment on above: Performed By: #### C FAITH, 06407-6, CBCA, 61247-7, 87031-2, PINR ####[facility] ([id number])[address] [place] [address] 26644 Potassium [Moles/Vol] 4.2 mmol/L Normal 3.5-5.0 [facility] Comment on above: Performed By: #### C FAITH, 78689-9, CBCA, 31486-8, 04934-8, PINR ####[facility] ([id number])[address] [place] [address] 83081 Protein [Mass/Vol] 8.1 g/dL High 6.0-8.0 [facility] Comment on above: Performed By: #### C FAITH, 94120-3, CBCA, 82027-0, 72351-6, PINR ####[facility] ([id number])[address] [place] [address] 84869 Sodium [Moles/Vol] 136 mmol/L Normal 134-146 [facility] Comment on above: Performed By: #### C FAITH, 89118-1, CBCA, 43504-0, 36262-8, PINR ####[facility] ([id number])[address] [place] [address] 87473 Urea nitrogen [Mass/Vol] 24 mg/dL Normal 5-27 [facility] Comment on above: Performed By: #### C FAITH, 52078-7, CBCA, 63128-4, 66438-5, PINR ####[facility] ([id number])[address] [place] [address] 58736 Lactate (P obed) [Moles/Vol]o n 11-19-2024 LACTATE W/REFLEX 1.5 mmol/L Normal 0.4-2.0 [facility] Comment on above: Result Comment: Resu lt did not trigger repeat Lactate,re-order if needed. Performed By: #### 3 2133-1 ####[facility] ([id number])[address] [place] [address] 56228 MAGNESIUMon 11-19-2024 Magnesium [Mass/Vol] 1.7 mg/dL Low 1.8-2.6 [facility] Comment on above: Performed By: #### C FAITH, 53944-2, CBCA, 09287-0, 23330-8, PINR ####[facility] ([id number])[address] [place] [address] 78432 Natriuretic peptide B [Mass/ Vol]on 11-19-2024 Natriuretic peptide B (Bld) [Mass/Vol] 73 pg/mL Normal <100.0 [facility] Comment on above: Performed By: #### C MP, 10768-0, CBCA, 69317-4, 99958-7, PINR ####[facility] ([id number])[address] [place] [address] 08431 PROTIME AND INRon 11-19-2024 INR Coag (PPP) [Relative time] 1.2 {INR} High 0.8-1.1 [facility] Comment on above: Performed By: #### C FAITH, 47456-8, CBCA, 70524-3, 91267-9, PINR ####[facility] ([id number])[address] [place] [address] 03808 PT Coag (PPP) [Time] 13.4 s High 9.8-13.2 [facility] Comment on above: Result Comment: NEW REFERENCE RANGE Performed By: #### C MP, 58769-8, CBCA, 07621-5, 32093-9, PINR ####[facility] ([id number])[address] [place] [address] 02873 URINE CULTUREon 11-19-2024 Bacteria identified Cx Nom (U) CULTURE RESULTS <10,000 ORGANISMS/ML NORMAL URO GENITAL BAILEY Normal [facility] Comment on above: Performed By: #### 6 30-4 ####[facility] ([id number])[address] [place] [address], [address], [place] [address] URN MACROSCOPIC NURon 2024 BILIRUBIN MARYJO Small Abnormal NEG [facility] Comment on above: Performed By: #### N UM ####[facility] ([id number])[address] [place] [address] 57486 BLOOD/HGB MARYJO Negative Normal NEG [facility] Comment on above: Performed By: #### N UM ####[facility] ([id number])[address] [place] [address] [place] [address] GLUCOSE MARYJO Negative Normal NEG [facility] Comment on above: Performed By: #### N UM ####[facility] ([id number])[address] [place] [address] 59908 KETONES MARYJO Negative Normal NEG [facility] Comment on above: Performed By: #### N UM ####[facility] ([id number])[address] [place] [address] 47184 LEUKOCYTE ESTERASE MARYJO Negative Normal NEG [facility] Comment on above: Performed By: #### N UM ####[facility] ([id number])[address] [place] [address] 83608 NITRITE MARYJO Negative Normal NEG [facility] Comment on above: Performed By: #### N UM ####[facility] ([id number])[address] [place] [address] 92345 PH MARYJO 6.0 Normal 5.0-8.5 [facility] Comment on above: Performed By: #### N UM ####[facility] ([id number])[address] [place] [address] 28178 PROTEIN MARYJO 30 mg/dL Abnormal NEG [facility] Comment on above: Performed By: #### N UM ####[facility] ([id number])[address] [place] [address] 73674 SPECIFIC GRAVITY MARYJO >=1.030 Normal 1.003-1.[address] [place] [address] Comment on above: Performed By: #### N UM ####[facility] ([id number])[address] [place] [address] 25291 UROBILINOGEN MARYJO 0.2 eu/dL Normal <1.1 [facility] Comment on above: Performed By: #### N UM ####[facility] ([id number])[address] [place] [address] 21610 aPTT Coag (PPP) [Time]on aPTT Coag (Bld) [Time] 33 s Normal 26-37 [facility] Comment on above: Result Comment: NEW REFERENCE RANGE Performed By: #### C MP, 19503-8, CBCA, 80633-2, 27569-0, PINR ####[facility] ([id number])[address] [place] [address] 80642 CBC AND AUTO DIFFon 01-03-20 25 ABSOLUTE BASOPHIL 0.0 X10E9/L Normal 0.0-0.2 [facility] Comment on above: Performed By: #### Renita HENSON [facility], 1987-03 ####[facility] ([id number])[address] [place] [address] 06944 ABSOLUTE NEUTROPHIL 4.5 X10E9/L Normal 1.5-6.6 [facility] Comment on above: Performed By: #### Renita HENSON [facility], 1987-03 ####[facility] ([id number])[address] [place] [address] 61174 Basophils/100 WBC (Bld) 0.6 % Normal [facility] Comment on above: Performed By: #### Renita HENSON [facility], 1987-03 ####[facility] ([id number])[address] [place] [address] 82138 Eosinophils (Bld) [#/Vol] 0.1 10*3/uL Normal 0.0-0.4 [facility] Comment on above: Performed By: #### Renita HENSON [facility], 1987-03 ####[facility] ([id number])[address] [place] [address] 28377 Eosinophils/100 WBC (Bld) 1.8 % Normal [facility] Comment on above: Performed By: #### Renita HENSON [facility], 1987-03 ####[facility] ([id number])[address] [place] [address] 50941 Erythrocyte distribution width (RBC) [Ratio] 15.3 % High 11.5-15.0 [facility] Comment on above: Performed By: #### Renita HENSON [facility], 1987-03 ####[facility] ([id number])[address] [place] [address] 53492 Hematocrit (Bld) [Volume fraction] 31.8 % Low 35-47 [facility] Comment on above: Performed By: #### Renita HENSON CMP 1987-03 ####[facility] ([id number])[address] [place] [address] 14511 Hemoglobin (Bld) [Mass/Vol] 10.6 g/dL Low 11.7-15.5 [facility] Comment on above: Performed By: #### Renita HENSON [facility], 1987-03 ####[facility] ([id number])[address] [place] [address] 72323 Lymphocytes (Bld) [#/Vol] 1.7 10*3/uL Normal 1.0-3.5 [facility] Comment on above: Performed By: #### Renita HENSON [facility], 1987-03 ####[facility] ([id number])[address] [place] [address] 12816 Lymphocytes/100 WBC (Bld) 24.2 % Normal [facility] Comment on above: Performed By: #### Renita HENSON [facility], 1987-03 ####[facility] ([id number])[address] [place] [address] 50094 MCH (RBC) [Entitic mass] 28.0 pg Normal 27-34 [facility] Comment on above: Performed By: #### Renita HENSON [facility], 1987-03 ####[facility] ([id number])[address] [place] [address] 74139 MCHC (RBC) [Mass/Vol] 33.3 g/dL Normal 32-36 [facility] Comment on above: Performed By: #### Renita HENSON [facility], 1987-03 ####[facility] ([id number])[address] [place] [address] 12981 MCV (RBC) [Entitic vol] 84 fL Normal 80-100 [facility] Comment on above: Performed By: #### Renita HENSON [facility], 1987-03 ####[facility] ([id number])[address] [place] [address] Monocytes (Bld) [#/Vol] 0.7 10*3/uL Normal 0-0.9 [facility] Comment on above: Performed By: #### Renita HENSON [facility], 1987-03 ####[facility] ([id number])[address] [place] [address] 10038 Monocytes/100 WBC (Bld) 10.6 % Normal [facility] Comment on above: Performed By: #### Renita HENSON [facility], 1987-03 ####[facility] ([id number])[address] [place] [address] 11035 Neutrophils/100 WBC (Bld) 62.8 % Normal [facility] Comment on above: Performed By: #### Renita HENSON [facility], 1988-03 ####[facility] ([id number])[address] [place] [address] 92265 Platelet mean volume (Bld) [Entitic vol] 7.9 fL Normal 7-12 [facility] Comment on above: Performed By: #### Renita HENSON [facility], 1988-03 ####[facility] ([id number])[address] [place] [address] 99069 Platelets (Bld) [#/Vol] 344 10*3/uL Normal 150-450 [facility] Comment on above: Performed By: #### Renita HENSON [facility], 1988-03 ####[facility] ([id number])[address] [place] [address] 94284 RBC COUNT 3.77 X10E12/L Low 3.80-5.20 [facility] Comment on above: Performed By: #### Renita HENSON [facility], 1988-03 ####[facility] ([id number])[address] [place] [address] 31906 WBC (Bld) [#/Vol] 7.1 10*3/uL Normal 4.0-11.0 [facility] Comment on above: Performed By: #### Renita HENSON [facility], 1988-03 ####[facility] ([id number])[address] [place] [address] [place] [address] COMPREHENSIVE METABOLIC PANE Dickson 11-17-2024 Albumin [Mass/Vol] 3.9 g/dL Normal 3.2-5.3 [facility] Comment on above: Performed By: #### Renita HENSON [facility], 1988-03 ####[facility] ([id number])[address] [place] [address] [place] [address] ALP [Catalytic activity/Vol] 106 U/L Normal 39-130 [facility] Comment on above: Performed By: #### Renita HENSON [facility], 1988-03 ####[facility] ([id number])[address] [place] [address] 66780 ALT [Catalytic activity/Vol] 17 U/L Normal 0-31 [facility] Comment on above: Performed By: #### Renita HENSON [facility], 1988-03 ####[facility] ([id number])[address] [place] [address] 15653 Anion gap [Moles/Vol] 10 mmol/L Normal 5-15 [facility] Comment on above: Performed By: #### Renita HENSON [facility], 1988-03 ####[facility] ([id number])[address] [place] [address] 23173 AST [Catalytic activity/Vol] 23 U/L Normal 0-41 [facility] Comment on above: Performed By: #### Renita HENSON [facility], 1988-03 ####[facility] ([id number])[address] [place] [address] 03138 Bilirubin [Mass/Vol] 0.5 mg/dL Normal 0.3-1.2 [facility] Comment on above: Performed By: #### Renita HENSON [facility], 1988-03 ####[facility] ([id number])[address] [place] [address] 27484 Calcium [Mass/Vol] 9.2 mg/dL Normal 8.5-10.5 [facility] Comment on above: Performed By: #### C [place] [facility], 1988-03 ####[facility] ([id number])[address] [place] [address] 60891 Chloride [Moles/Vol] 101 mmol/L Normal 98-109 [facility] Comment on above: Performed By: #### C [place] [facility], 1988-03 ####[facility] ([id number])[address] [place] [address] 83991 CO2 [Moles/Vol] 26 mmol/L Normal 22-32 [facility] Comment on above: Performed By: #### C [place] [facility], 1988-03 ####[facility] ([id number])[address] [place] [address] 72557 Creatinine [Mass/Vol] 1.29 mg/dL High 0.40-1.00 [facility] Comment on above: Result Comment: METH OD TRACEABLE TO IDMS STANDARD Performed By: #### C [place] [facility], 1988-03 ####[facility] ([id number])[address] [place] [address] 61106 GFR/1.73 sq M.predicted among non-blacks MDRD (S/P/Bld) [Vol rate/Area] 42 mL/min/{1.73_m2} Low >59 [facility] Comment on above: Result Comment: Repo rted eGFR is based on theCKD-EPI 2020 equation that doesnot use a race coefficient. Performed By: #### C RUBEN HENSON, 1987-03 ####[facility] ([id number])[address] [place] [address] 12271 Glucose [Mass/Vol] 212 mg/dL High 65-99 [facility] Comment on above: Performed By: #### C [place], [facility], 1988-03 ####[facility] ([id number])[address] [place] [address] 89785 Potassium [Moles/Vol] 4.2 mmol/L Normal 3.5-5.0 [facility] Comment on above: Performed By: #### Renita HENSON [facility], 1988-03 ####[facility] ([id number])[address] [place] [address] 23552 Protein [Mass/Vol] 7.8 g/dL Normal 6.0-8.0 [facility] Comment on above: Performed By: #### Renita HENSON [facility], 1988-03 ####[facility] ([id number])[address] [place] [address] 36749 Sodium [Moles/Vol] 137 mmol/L Normal 134-146 [facility] Comment on above: Performed By: #### Renita HENSON [facility], 1988-03 ####[facility] ([id number])[address] [place] [address] 69506 Urea nitrogen [Mass/Vol] 18 mg/dL Normal 5-27 [facility] Comment on above: Performed By: #### Renita HENSON [facility], 1988-03 ####[facility] ([id number])[address] [place] [address] 56844 CRP [Mass/Vol]on 11-17-2024 C REACTIVE PROTEIN 2.4 mg/dL High 0.000-0.74 4 [facility] Comment on above: Performed By: #### Renita HENSON [facility], 1988-03 ####[facility] ([id number])[address] [place] [address] 76679 Lactate (P obed) [Moles/Vol]o n 11-17-2024 LACTATE W/REFLEX 1.2 mmol/L Normal 0.4-2.0 [facility] Comment on above: Result Comment: Resu lt did not trigger repeat Lactate,re-order if needed. Performed By: #### 3 2133-1 ####[facility] ([id number])[address] [place] [address], [place] [address] URINE CULTUREon 11-17-2024 Bacteria identified Cx Nom (U) CULTURE RESULTS 50,000 to 100,000 ORGANISMS/mL BEVERLY GLABRATA <10,000 ORGANISMS/mL NORMAL URO GENITAL BAILEY Normal [facility] Comment on above: Performed By: #### 6 30-4 ####[facility] ([id number])[address] [facility], [address], [place] [address] URN MACROSCOPIC NURon 2024 BILIRUBIN MARYJO Negative Normal NEG [facility] Comment on above: Performed By: #### N UM ####[facility] ([id number])[address] [place] [address] [place] [address] BLOOD/HGB MARYJO Trace Abnormal NEG [facility] Comment on above: Performed By: #### N UM ####[facility] ([id number])[address] [place] [address], [place] [address] GLUCOSE MARYJO Negative Normal NEG [facility] Comment on above: Performed By: #### N UM ####[facility] ([id number])[address] [place] [address], [place] [address] KETONES MARYJO Negative Normal NEG [facility] Comment on above: Performed By: #### N UM ####[facility] ([id number])[address] [place] [address], [place] [address] LEUKOCYTE ESTERASE MARYJO Trace Abnormal NEG [facility] Comment on above: Performed By: #### N UM ####[facility] ([id number])[address] [place] [address], [place] [address] NITRITE MARYJO Negative Normal NEG [facility] Comment on above: Performed By: #### N UM ####[facility] ([id number])[address] [place] [address] [place] [address] PH MARYJO 7.0 Normal 5.0-8.5 [facility] Comment on above: Performed By: #### N UM ####[facility] ([id number])[address] [place] [address] [place] [address] PROTEIN MARYJO 100 mg/dL Abnormal NEG [facility] Comment on above: Performed By: #### N UM ####[facility] ([id number])[address] [place] [address] [place] [address] SPECIFIC GRAVITY MARYJO >=1.030 Normal 1.003-1.03 5 [facility] Comment on above: Performed By: #### N UM ####[facility] ([id number])[address] [place] [address] 68837 UROBILINOGEN MARYJO 0.2 eu/dL Normal <1.1 [facility] Comment on above: Performed By: #### N UM ####[facility] ([id number])[address] [place] [address] [place] [address] CBC AND AUTO DIFFon 11-10-20 24 ABSOLUTE BASOPHIL 0.1 X10E9/L Normal 0.0-0.2 [facility] Comment on above: Performed By: #### C FAITH, , CBCA ####[facility] ([id number])[address] [place] [address] 66429 ABSOLUTE NEUTROPHIL 4.4 X10E9/L Normal 1.5-6.6 [facility] Comment on above: Performed By: #### C FAITH, , CBCA ####[facility] ([id number])[address] [place] [address] 22765 Basophils/100 WBC (Bld) 0.9 % Normal [facility] Comment on above: Performed By: #### C FAITH, , CBCA ####[facility] ([id number])[address] [place] [address] 13521 Eosinophils (Bld) [#/Vol] 0.2 10*3/uL Normal 0.0-0.4 [facility] Comment on above: Performed By: #### C FAITH, , CBCA ####[facility] ([id number])[address] [place] [address] 73317 Eosinophils/100 WBC (Bld) 3.2 % Normal [facility] Comment on above: Performed By: #### C FAITH, , CBCA ####[facility] ([id number])[address] [place] [address] 05848 Erythrocyte distribution width (RBC) [Ratio] 15.6 % High 11.5-15.0 [facility] Comment on above: Performed By: #### C FAITH, , CBCA ####[facility] ([id number])[address] [place] [address] 13196 Hematocrit (Bld) [Volume fraction] 29.8 % Low 35-47 [facility] Comment on above: Performed By: #### C FAITH, , CBCA ####[facility] ([id number])[address] [place] [address] 71670 Hemoglobin (Bld) [Mass/Vol] 9.8 g/dL Low 11.7-15.5 [facility] Comment on above: Performed By: #### C FAITH, , CBCA ####[facility] ([id number])[address] [place] [address] 11527 Lymphocytes (Bld) [#/Vol] 2.1 10*3/uL Normal 1.0-3.5 [facility] Comment on above: Performed By: #### C FAITH, , CBCA ####[facility] ([id number])[address] [place] [address] 39440 Lymphocytes/100 WBC (Bld) 27.1 % Normal [facility] Comment on above: Performed By: #### C FAITH, , CBCA ####[facility] ([id number])[address] [place] [address] 73046 MCH (RBC) [Entitic mass] 28.0 pg Normal 27-34 [facility] Comment on above: Performed By: #### C FAITH, , CBCA ####[facility] ([id number])[address] [place] [address] 81982 MCHC (RBC) [Mass/Vol] 33.0 g/dL Normal 32-36 [facility] Comment on above: Performed By: #### C FAITH, , CBCA ####[facility] ([id number])[address] [place] [address] 48572 MCV (RBC) [Entitic vol] 85 fL Normal 80-100 [facility] Comment on above: Performed By: #### Renita CUEVAS, , CBCA ####[facility] ([id number])[address] [place] [address] 85142 Monocytes (Bld) [#/Vol] 0.8 10*3/uL Normal 0-0.9 [facility] Comment on above: Performed By: #### Renita CUEVAS, , CBCA ####[facility] ([id number])[address] [place] [address] 08864 Monocytes/100 WBC (Bld) 10.5 % Normal [facility] Comment on above: Performed By: #### Renita CUEVAS, , CBCA ####[facility] ([id number])[address] [place] [address] 43504 Neutrophils/100 WBC (Bld) 58.3 % Normal [facility] Comment on above: Performed By: #### C FAITH, , CBCA ####[facility] ([id number])[address] [place] [address] 08747 Platelet mean volume (Bld) [Entitic vol] 8.6 fL Normal 7-12 [facility] Comment on above: Performed By: #### C FAITH, , CBCA ####[facility] ([id number])[address] [place] [address] 52716 Platelets (Bld) [#/Vol] 268 10*3/uL Normal 150-450 [facility] Comment on above: Performed By: #### C FAITH, , CBCA ####[facility] ([id number])[address] [place] [address] 33705 RBC COUNT 3.52 X10E12/L Low 3.80-5.20 [facility] Comment on above: Performed By: #### C FAITH, , CBCA ####[facility] ([id number])[address] [place] [address] 00622 WBC (Bld) [#/Vol] 7.6 10*3/uL Normal 4.0-11.0 [facility] Comment on above: Performed By: #### Renita CUEVAS, , CBCA ####[facility] ([id number])[address] [place] [address] 73135 COMPREHENSIVE METABOLIC PANE [facility] 11-10-2024 Albumin [Mass/Vol] 3.7 g/dL Normal 3.2-5.3 [facility] Comment on above: Performed By: #### Renita CUEVAS, , CBCA ####[facility] ([id number])[address] [place] [address] 87464 ALP [Catalytic activity/Vol] 90 U/L Normal 39-130 [facility] Comment on above: Performed By: #### C FAITH, , CBCA ####[facility] ([id number])[address] [place] [address] 38708 ALT [Catalytic activity/Vol] 16 U/L Normal 0-31 [facility] Comment on above: Performed By: #### C FAITH, , CBCA ####[facility] ([id number])[address] [place] [address] 62665 Anion gap [Moles/Vol] 9 mmol/L Normal 5-15 [facility] Comment on above: Performed By: #### C FAITH, , CBCA ####[facility] ([id number])[address] [place] [address] 09051 AST [Catalytic activity/Vol] 17 U/L Normal 0-41 [facility] Comment on above: Performed By: #### C FAITH, , CBCA ####[facility] ([id number])[address] [place] [address] [place] [address] Bilirubin [Mass/Vol] 0.5 mg/dL Normal 0.3-1.2 [facility] Comment on above: Performed By: #### C FAITH, , CBCA ####[facility] ([id number])[address] [place] [address] [place] [address] Calcium [Mass/Vol] 8.9 mg/dL Normal 8.5-10.5 [facility] Comment on above: Performed By: #### C FAITH, , CBCA ####[facility] ([id number])[address] [place] [address] 68673 Chloride [Moles/Vol] 101 mmol/L Normal 98-109 [facility] Comment on above: Performed By: #### C FAITH, , CBCA ####[facility] ([id number])[address] [place] [address] [place] [address] CO2 [Moles/Vol] 25 mmol/L Normal 22-32 [facility] Comment on above: Performed By: #### C FAITH, , CBCA ####[facility] ([id number])[address] [place] [address] 29496 Creatinine [Mass/Vol] 1.38 mg/dL High 0.40-1.00 [facility] Comment on above: Result Comment: METH OD TRACEABLE TO IDMS STANDARD Performed By: #### C FAITH, , CBCA ####[facility] ([id number])[address] [place] [address] 62700 GFR/1.73 sq M.predicted among non-blacks MDRD (S/P/Bld) [Vol rate/Area] 39 mL/min/{1.73_m2} Low >59 [facility] Comment on above: Result Comment: Repo rted eGFR is based on theCKD-EPI 2020 equation that doesnot use a race coefficient. Performed By: #### C FAITH, , CBCA ####[facility] ([id number])[address] [place] [address] 88818 Glucose [Mass/Vol] 146 mg/dL High 65-99 [facility] Comment on above: Performed By: #### Renita CUEVAS, , CBCA ####[facility] ([id number])[address] [place] [address] [place] [address] Potassium [Moles/Vol] 4.2 mmol/L Normal 3.5-5.0 [facility] Comment on above: Performed By: #### C FAITH, , CBCA ####[facility] ([id number])[address] [place] [address] [place] [address] Protein [Mass/Vol] 7.1 g/dL Normal 6.0-8.0 [facility] Comment on above: Performed By: #### C FAITH, , CBCA ####[facility] ([id number])[address] [place] [address] 80817 Sodium [Moles/Vol] 135 mmol/L Normal 134-146 [facility] Comment on above: Performed By: #### C FAITH, , CBCA ####[facility] ([id number])[address] [place] [address] 19199 Urea nitrogen [Mass/Vol] 22 mg/dL Normal - [facility] Comment on above: Performed By: #### C FAITH, , CBCA ####[facility] ([id number])[address] [place] [address] 54820 Glucose Glucometer (BldC) [M ass/Vol]on 11-10-2024 Glucose [Mass/Vol] 337 mg/dL High 65-99 [facility] MAGNESIUMon 11-10-2024 Magnesium [Mass/Vol] 2.4 mg/dL Normal 1.8-2.6 [facility] Comment on above: Performed By: #### C FAITH, , CBCA ####[facility] ([id number])[address] [place] [address] 18809 BLOOD CULTUREon 11-09-2024 Bacteria identified Aer cx Nom (Bld) CULTURE RESULTS NO GROWTH 5 DAYS Normal [facility] Bacteria identified Aer cx Nom (Bld) CULTURE RESULTS NO GROWTH 5 DAYS Normal [facility] CBC AND AUTO DIFFon 11-09-20 24 ABSOLUTE BASOPHIL 0.0 X10E9/L Normal 0.0-0.2 [facility] Comment on above: Performed By: #### C FAITH, 88723-5, CBCA, , 96525-5 ####[facility] ([id number])[address] [place] [address] 22533 ABSOLUTE NEUTROPHIL 4.6 X10E9/L Normal 1.5-6.6 [facility] Comment on above: Performed By: #### C FAITH, 60096-3, CBCA, , 06251-8 ####[facility] ([id number])[address] [place] [address] 52706 Basophils/100 WBC (Bld) 0.5 % Normal [facility] Comment on above: Performed By: #### C FAITH, 53879-7, CBCA, , 56659-6 ####[facility] ([id number])[address] [place] [address] 06250 Eosinophils (Bld) [#/Vol] 0.1 10*3/uL Normal 0.0-0.4 [facility] Comment on above: Performed By: #### C FAITH, 48469-3, CBCA, , 96146-4 ####[facility] ([id number])[address] [place] [address] 59791 Eosinophils/100 WBC (Bld) 1.7 % Normal [facility] Comment on above: Performed By: #### C FAITH, 48350-1, CBCA, , 06869-4 ####[facility] ([id number])[address] [place] [address] 95538 Erythrocyte distribution width (RBC) [Ratio] 15.3 % High 11.5-15.0 [facility] Comment on above: Performed By: #### C FAITH, 66691-7, CBCA, , 59421-4 ####[facility] ([id number])[address] [place] [address] 91704 Hematocrit (Bld) [Volume fraction] 29.6 % Low 35-47 [facility] Comment on above: Performed By: #### C FAITH, 50650-0, CBCA, , 21802-6 ####[facility] ([id number])[address] [place] [address] 90493 Hemoglobin (Bld) [Mass/Vol] 10.1 g/dL Low 11.7-15.5 [facility] Comment on above: Performed By: #### C FAITH, 98135-5, CBCA, , 78659-1 ####[facility] ([id number])[address] [place] [address] 07168 Lymphocytes (Bld) [#/Vol] 2.1 10*3/uL Normal 1.0-3.5 [facility] Comment on above: Performed By: #### C FAITH, 40002-3, CBCA, , 02145-1 ####[facility] ([id number])[address] [place] [address] 24127 Lymphocytes/100 WBC (Bld) 27.4 % Normal [facility] Comment on above: Performed By: #### C FAITH, 88134-9, CBCA, , 07435-4 ####[facility] ([id number])[address] [place] [address] 43818 MCH (RBC) [Entitic mass] 28.9 pg Normal 27-34 [facility] Comment on above: Performed By: #### C FAITH, 42656-7, CBCA, , 24244-2 ####[facility] ([id number])[address] [place] [address] 48425 MCHC (RBC) [Mass/Vol] 34.3 g/dL Normal 32-36 [facility] Comment on above: Performed By: #### C FAITH, 60981-3, CBCA, 74368-4, 60093-4 ####[facility] ([id number])[address] [place] [address] 27551 MCV (RBC) [Entitic vol] 84 fL Normal 80-100 [facility] Comment on above: Performed By: #### C FAITH, 40153-4, CBCA, 60708-8, 94291-6 ####[facility] ([id number])[address] [place] [address] 16076 Monocytes (Bld) [#/Vol] 0.9 10*3/uL Normal 0-0.9 [facility] Comment on above: Performed By: #### C FAITH, 65551-7, CBCA, 91728-9, 52752-3 ####[facility] ([id number])[address] [place] [address] 07088 Monocytes/100 WBC (Bld) 11.3 % Normal [facility] Comment on above: Performed By: #### C FAITH, 64185-4, CBCA, , 10079-0 ####[facility] ([id number])[address] [place] [address] 35394 Neutrophils/100 WBC (Bld) 59.1 % Normal [facility] Comment on above: Performed By: #### C FAITH, 94343-1, CBCA, , 80777-3 ####[facility] ([id number])[address] [place] [address] 80842 Platelet mean volume (Bld) [Entitic vol] 8.2 fL Normal 7-12 [facility] Comment on above: Performed By: #### C FAITH, 08053-9, CBCA, 64445-7, 14723-8 ####[facility] ([id number])[address] [place] [address] 47550 Platelets (Bld) [#/Vol] 275 10*3/uL Normal 150-450 [facility] Comment on above: Performed By: #### C FAITH, 84814-5, CBCA, , 79796-9 ####[facility] ([id number])[address] [place] [address] 56067 RBC COUNT 3.51 X10E12/L Low 3.80-5.20 [facility] Comment on above: Performed By: #### C FAITH, 20937-4, CBCA, 50436-5, 55809-9 ####[facility] ([id number])[address] [place] [address] 47013 WBC (Bld) [#/Vol] 7.8 10*3/uL Normal 4.0-11.0 [facility] Comment on above: Performed By: #### C FAITH, 88413-8, CBCA, 53433-8, 20013-5 ####[facility] ([id number])[address] [place] [address] 45170 COMPREHENSIVE METABOLIC PANE [facility] 11-09-2024 Albumin [Mass/Vol] 3.5 g/dL Normal 3.2-5.3 [facility] Comment on above: Performed By: #### C FAITH, 43179-7, CBCA, 10726-5, 45036-2 ####[facility] ([id number])[address] [place] [address] 03438 ALP [Catalytic activity/Vol] 89 U/L Normal 39-130 [facility] Comment on above: Performed By: #### C FAITH, 87038-5, CBCA, 59630-6, 38583-9 ####[facility] ([id number])[address] [place] [address] 86335 ALT [Catalytic activity/Vol] 16 U/L Normal 0-31 [facility] Comment on above: Performed By: #### C FAITH, 38270-5, CBCA, 60313-9, 16355-1 ####[facility] ([id number])[address], [place] [address] Anion gap [Moles/Vol] 10 mmol/L Normal 5-15 [facility] Comment on above: Performed By: #### C FAITH, 15455-9, CBCA, , 53470-2 ####[facility] ([id number])[address] [place] [address] 51047 AST [Catalytic activity/Vol] 19 U/L Normal 0-41 [facility] Comment on above: Performed By: #### C FAITH, 58016-3, CBCA, , 15381-6 ####[facility] ([id number])[address] [place] [address] 73702 Bilirubin [Mass/Vol] 0.7 mg/dL Normal 0.3-1.2 [facility] Comment on above: Performed By: #### C FAITH, 51561-0, CBCA, , 43164-8 ####[facility] ([id number])[address] [place] [address] 09251 Calcium [Mass/Vol] 9.3 mg/dL Normal 8.5-10.5 [facility] Comment on above: Performed By: #### C FAITH, 57888-5, CBCA, , 09514-9 ####[facility] ([id number])[address] [place] [address] 53091 Chloride [Moles/Vol] 99 mmol/L Normal 98-109 [facility] Comment on above: Performed By: #### C FAITH, 29530-5, CBCA, , 83672-1 ####[facility] ([id number])[address] [place] [address] [place] [address] CO2 [Moles/Vol] 28 mmol/L Normal 22-32 [facility] Comment on above: Performed By: #### C FAITH, 30625-4, CBCA, , 76143-9 ####[facility] ([id number])[address] [place] [address] 12836 Creatinine [Mass/Vol] 1.32 mg/dL High 0.40-1.00 [facility] Comment on above: Result Comment: METH OD TRACEABLE TO IDMS STANDARD Performed By: #### C FAITH, 98935-0, CBCDanielle, , 68362-2 ####[facility] ([id number])[address] [place] [address] 44523 GFR/1.73 sq M.predicted among non-blacks MDRD (S/P/Bld) [Vol rate/Area] 41 mL/min/{1.73_m2} Low >59 [facility] Comment on above: Result Comment: Repo rted eGFR is based on theCKD-EPI 2020 equation that doesnot use a race coefficient. Performed By: #### C FAITH, 53771-5, CBCDanielle, , 49965-9 ####[facility] ([id number])[address] [place] [address] 78781 Glucose [Mass/Vol] 206 mg/dL High 65-99 [facility] Comment on above: Performed By: #### C FAITH, 48726-3, CARMEN, 48207-7, 28148-4 ####[facility] ([id number])[address] [place] [address] 30381 Potassium [Moles/Vol] 3.9 mmol/L Normal 3.5-5.0 [facility] Comment on above: Performed By: #### C FAITH, 77297-9, CBCA, , 54762-6 ####[facility] ([id number])[address] [place] [address] 22505 Protein [Mass/Vol] 7.3 g/dL Normal 6.0-8.0 [facility] Comment on above: Performed By: #### C FAITH, 91134-3, CBCA, 24418-3, 63824-1 ####[facility] ([id number])[address] [place] [address] Sodium [Moles/Vol] 137 mmol/L Normal 134-146 [facility] Comment on above: Performed By: #### C MP, 69061-5, CBCA, 39626-3, 62008-2 ####[facility] ([id number])[address] [place] [address] Urea nitrogen [Mass/Vol] 17 mg/dL Normal 5-27 [facility] Comment on above: Performed By: #### C MP, 80037-1, CBCA, 87287-3, 99182-1 ####[facility] ([id number])[address] [place] [address] 20302 CRP High sensitivity method [Mass/Vol]on 11-09-2024 HS CRP 3.030 mg/dL High 0.000-0.[address] [place] [address] Comment on above: Result Comment: Hs-C RP [...] other conditions. Performed By: #### 3 0522-7 ####[facility] ([id number])[address] [facility], [address], [place] [address] HS CRP 2.859 mg/dL High 0.000-0.74 4 [facility] Comment on above: Result Comment: Hs-C [...] other conditions. Performed By: #### 8 9579-7 ####[facility] ([id number])[address] [place] [address] 86739#### 06890-2 ####[facility] ([id number])[address] [facility], [address] [place] [address] 82624 Glucose Glucometer (BldC) [M ass/Vol]on 11-09-2024 Glucose [Mass/Vol] 252 mg/dL High 65-99 [facility] Glucose [Mass/Vol] 118 mg/dL High 65-99 [facility] Glucose [Mass/Vol] 253 mg/dL High 65-99 [facility] Lactate (P obed) [Moles/Vol]o n 11-09-2024 LACTATE W/REFLEX 1.2 mmol/L Normal 0.4-2.0 [facility] Comment on above: Result Comment: Resu lt did not trigger repeat Lactate,re-order if needed. Performed By: #### 3 2133-1 ####[facility] ([id number])[address] [place] [address] 16250 MAGNESIUMon 11-09-2024 Magnesium [Mass/Vol] 2.6 mg/dL Normal 1.8-2.6 [facility] Comment on above: Performed By: #### 1 9123-9 ####[facility] ([id number])[address] [place] [address] 02060 Magnesium [Mass/Vol] 1.6 mg/dL Low 1.8-2.6 [facility] Comment on above: Performed By: #### C MP, 47538-4, CBCA, 70679-0, 06976-0 ####[facility] ([id number])[address] [place] [address] 70932 Natriuretic peptide B [Mass/ Vol]on 11-09-2024 Natriuretic peptide B (Bld) [Mass/Vol] 74 pg/mL Normal <100.0 [facility] Comment on above: Performed By: #### C MP, 09919-5, CBCA, 33839-6, 19693-8 ####[facility] ([id number])[address] [place] [address] 08668 RESP PATHOGENS/VDXC-BlG-[id number] 11-09-2024 Respiratory pathogens DNA and RNA panel SIRI+non-probe (Nph) Normal [facility] Comment on above: Performed By: #### 8 2159-5 ####[facility] ([id number])[address] [place] [address] ([id number])[address] [facility], [address], [place] [address] SARS/FLU A+B/RSV by NAAT/Mol ecularon 11-09-2024 SARS/FLU A+B/RSV by NAAT/Molecular Normal [facility] Comment on above: Performed By: #### C OVFLR ####[facility] ([id number])[address] [place] [address] 04523 Troponin I.cardiac High sens itivity method [Mass/Vol]on 11-09-2024 1 HOUR TROP I, HIGH SENSITIVITY 92 ng/L High <16 [facility] Comment on above: Result Comment: Elev ations of hs-Troponin may be due to causesother than myocardial ischemia.Recommend serial hs-Troponin testing be performed.For the initial evaluation and management of chestpain patients, refer to the algorithms linked below.Emergency Patient:[email or web address] 15&[email or web address]=acaeaInpatient:[email or web address]&[email or web address]&uh=acaea Performed By: #### 8 9579-7 ####[facility] ([id number])[address] [place] [address] 82136#### 94454-7 ####[facility] ([id number])[address] [place] [address], [address], [place] [address] TROPONIN I, HIGH SENSITIVITY 97 ng/L High <16 [facility] Comment on above: Result Comment: Elev ations of hs-Troponin may be due to causesother than myocardial ischemia.Recommend serial hs-Troponin testing be performed.For the initial evaluation and management of chestpain patients, refer to the algorithms linked below.Emergency Patient:[email or web address] 15&[email or web address]:[email or web address]&uh=acaea Performed By: #### C MP, 91917-6, CBCA, 76780-2, 21818-4 ####[facility] ([id number])[address] [place] [address] 16670 URINALYSISon 11-09-2024 Bilirubin Ql (U) Negative Normal NEG [facility] Comment on above: Performed By: #### U A ####[facility] ([id number])[address] [place] [address] 73530 BLOOD/HGB Negative Normal NEG [facility] Comment on above: Performed By: #### U A ####[facility] ([id number])[address] [place] [address] 59171 Color (U) YELLOW Normal YELLOW [facility] Comment on above: Performed By: #### U A ####[facility] ([id number])[address] [place] [address] 05965 Glucose Ql (U) Negative Normal NEG [facility] Comment on above: Performed By: #### U A ####[facility] ([id number])[address] [place] [address] 60415 Ketones Ql (U) Negative Normal NEG [facility] Comment on above: Performed By: #### U A ####[facility] ([id number])[address] [place] [address] 29146 Leukocyte esterase Test strip Ql (U) SMALL Abnormal NEG [facility] Comment on above: Performed By: #### U A ####[facility] ([id number])[address] [place] [address] 41846 Nitrite Ql (U) Positive Abnormal NEG [facility] Comment on above: Performed By: #### U A ####[facility] ([id number])[address] [place] [address] 41739 pH (U) 6.0 [pH] Normal 5.0-8.5 [facility] Comment on above: Performed By: #### U A ####[facility] ([id number])[address] [place] [address] 80820 Protein Ql (U) Trace Abnormal NEG [facility] Comment on above: Performed By: #### U A ####[facility] ([id number])[address] [place] [address] 12716 R.B.CELLS 1 /hpf Normal 0-5 [facility] Comment on above: Performed By: #### U A ####[facility] ([id number])[address] [place] [address] 13784 Specific gravity (U) [Rel density] 1.025 Normal 1.003-1.03 5 [facility] Comment on above: Performed By: #### U A ####[facility] ([id number])[address] [place] [address] 14865 SQUAMOUS EPITHELIUM 3 /hpf Normal 0-5 [facility] Comment on above: Performed By: #### U A ####[facility] ([id number])[address] [place] [address] 73015 TURBIDITY CLEAR Normal CLEAR [facility] Comment on above: Performed By: #### U A ####[facility] ([id number])[address] [place] [address] 46916 Urobilinogen Qn (U) 0.2 {Artie'U}/dL Normal <1.1 [facility] Comment on above: Performed By: #### U A ####[facility] ([id number])[address] [place] [address] 35066 W.B.CELLS 2 /hpf Normal 0-5 [facility] Comment on above: Performed By: #### U A ####[facility] ([id number])[address] [place] [address] 89068 URINE CULTUREon 11-09-2024 Bacteria identified Cx Nom (U) Susceptible [facility] Comment on above: Performed By: #### 6 30-4 ####[facility] ([id number])[address] [facility], [address], [place] [address] XR CHEST 1 VWon 11-09-2024 XR CHEST 1 VW Normal [facility] CBC AND AUTO DIFFon 10-30-20 24 ABSOLUTE BASOPHIL 0.0 X10E9/L Normal 0.0-0.2 [facility] Comment on above: Performed By: #### 1 9123-9, CBCA, CMP ####[facility] ([id number])[address] [place] [address] 12039 ABSOLUTE NEUTROPHIL 3.1 X10E9/L Normal 1.5-6.6 [facility] Comment on above: Performed By: #### 1 9123-9, CBCA, CMP ####[facility] ([id number])[address] [place] [address] 42389 Basophils/100 WBC (Bld) 0.8 % Normal [facility] Comment on above: Performed By: #### 1 9123-9, CBCA, CMP ####[facility] ([id number])[address] [place] [address] 78188 Eosinophils (Bld) [#/Vol] 0.4 10*3/uL Normal 0.0-0.4 [facility] Comment on above: Performed By: #### 1 9123-9, CBCA, CMP ####[facility] ([id number])[address] [place] [address] 58353 Eosinophils/100 WBC (Bld) 5.9 % Normal [facility] Comment on above: Performed By: #### 1 9123-9, CBCA, CMP ####[facility] ([id number])[address] [place] [address] 32899 Erythrocyte distribution width (RBC) [Ratio] 15.8 % High 11.5-15.0 [facility] Comment on above: Performed By: #### 1 9123-9, CBCA, CMP ####[facility] ([id number])[address] [place] [address] 13852 Hematocrit (Bld) [Volume fraction] 30.3 % Low 35-47 [facility] Comment on above: Performed By: #### 1 9123-9, CBCA, CMP ####[facility] ([id number])[address] [place] [address] 88940 Hemoglobin (Bld) [Mass/Vol] 10.2 g/dL Low 11.7-15.5 [facility] Comment on above: Performed By: #### 1 9123-9, CBCA, CMP ####[facility] ([id number])[address] [place] [address] 46321 Lymphocytes (Bld) [#/Vol] 2.1 10*3/uL Normal 1.0-3.5 [facility] Comment on above: Performed By: #### 1 9123-9, CBCA, CMP ####[facility] ([id number])[address] [place] [address] 10644 Lymphocytes/100 WBC (Bld) 33.5 % Normal [facility] Comment on above: Performed By: #### 1 9123-9, CBCA, CMP ####[facility] ([id number])[address] [place] [address] 07422 MCH (RBC) [Entitic mass] 28.4 pg Normal 27-34 [facility] Comment on above: Performed By: #### 1 9123-9, CBCA, CMP ####[facility] ([id number])[address] [place] [address] 07557 MCHC (RBC) [Mass/Vol] 33.8 g/dL Normal 32-36 [facility] Comment on above: Performed By: #### 1 9123-9, CBCA, CMP ####[facility] ([id number])[address] [place] [address] 09282 MCV (RBC) [Entitic vol] 84 fL Normal 80-100 [facility] Comment on above: Performed By: #### 1 9123-9, CBCA, CMP ####[facility] ([id number])[address] [place] [address] 13825 Monocytes (Bld) [#/Vol] 0.6 10*3/uL Normal 0-0.9 [facility] Comment on above: Performed By: #### 1 9123-9, CBCA, CMP ####[facility] ([id number])[address] [place] [address] 26340 Monocytes/100 WBC (Bld) 10.1 % Normal [facility] Comment on above: Performed By: #### 1 9123-9, CBCA, CMP ####[facility] ([id number])[address] [place] [address] 59284 Neutrophils/100 WBC (Bld) 49.7 % Normal [facility] Comment on above: Performed By: #### 1 9123-9, CBCA, CMP ####[facility] ([id number])[address] [place] [address] 86042 Platelet mean volume (Bld) [Entitic vol] 8.8 fL Normal 7-12 [facility] Comment on above: Performed By: #### 1 9123-9, CBCA, CMP ####[facility] ([id number])[address] [place] [address] 79458 Platelets (Bld) [#/Vol] 224 10*3/uL Normal 150-450 [facility] Comment on above: Performed By: #### 1 9123-9, CBCA, CMP ####[facility] ([id number])[address] [place] [address] 34131 RBC COUNT 3.60 X10E12/L Low 3.80-5.20 [facility] Comment on above: Performed By: #### 1 9123-9, CBCA, CMP ####[facility] ([id number])[address] [place] [address] 92628 WBC (Bld) [#/Vol] 6.2 10*3/uL Normal 4.0-11.0 [facility] Comment on above: Performed By: #### 1 9123-9, CBCA, CMP ####[facility] ([id number])[address] [place] [address], [place] [address] COMPREHENSIVE METABOLIC PANE Dickson 10-30-2024 Albumin [Mass/Vol] 3.6 g/dL Normal 3.2-5.3 [facility] Comment on above: Performed By: #### 1 9123-9, CBCA, CMP ####[facility] ([id number])[address] [place] [address] [place] [address] ALP [Catalytic activity/Vol] 85 U/L Normal 39-130 [facility] Comment on above: Performed By: #### 1 9123-9, CBCA, CMP ####[facility] ([id number])[address] [place] [address] 53537 ALT [Catalytic activity/Vol] 15 U/L Normal 0-31 [facility] Comment on above: Performed By: #### 1 9123-9, CBCA, CMP ####[facility] ([id number])[address] [place] [address] [place] [address] Anion gap [Moles/Vol] 10 mmol/L Normal 5-15 [facility] Comment on above: Performed By: #### 1 9123-9, CBCA, CMP ####[facility] ([id number])[address] [place] [address] 40787 AST [Catalytic activity/Vol] 19 U/L Normal 0-41 [facility] Comment on above: Performed By: #### 1 9123-9, CBCA, CMP ####[facility] ([id number])[address] [place] [address] 05446 Bilirubin [Mass/Vol] 0.2 mg/dL Low 0.3-1.2 [facility] Comment on above: Performed By: #### 1 9123-9, CBCA, CMP ####[facility] ([id number])[address] [place] [address] Calcium [Mass/Vol] 8.8 mg/dL Normal 8.5-10.5 [facility] Comment on above: Performed By: #### 1 9123-9, CBCA, CMP ####[facility] ([id number])[address] [place] [address] 91242 Chloride [Moles/Vol] 103 mmol/L Normal 98-109 [facility] Comment on above: Performed By: #### 1 9123-9, CBCA, CMP ####[facility] ([id number])[address] [place] [address] 48472 CO2 [Moles/Vol] 23 mmol/L Normal 22-32 [facility] Comment on above: Performed By: #### 1 9123-9, CBCA, CMP ####[facility] ([id number])[address] [place] [address] 54889 Creatinine [Mass/Vol] 1.55 mg/dL High 0.40-1.00 [facility] Comment on above: Result Comment: METH OD TRACEABLE TO IDMS STANDARD Performed By: #### 1 9123-9, CBCA, CMP ####[facility] ([id number])[address] [place] [address] 50527 GFR/1.73 sq M.predicted among non-blacks MDRD (S/P/Bld) [Vol rate/Area] 34 mL/min/{1.73_m2} Low >59 [facility] Comment on above: Result Comment: Repo rted eGFR is based on theCKD-EPI 2020 equation that doesnot use a race coefficient. Performed By: #### 1 9123-9, CBCA, CMP ####[facility] ([id number])[address] [place] [address] 20497 Glucose [Mass/Vol] 234 mg/dL High 65-99 [facility] Comment on above: Performed By: #### 1 9123-9, CBCA, CMP ####[facility] ([id number])[address] [place] [address] 94882 Potassium [Moles/Vol] 4.2 mmol/L Normal 3.5-5.0 [facility] Comment on above: Performed By: #### 1 9123-9, CBCA, CMP ####[facility] ([id number])[address] [place] [address] 16373 Protein [Mass/Vol] 6.7 g/dL Normal 6.0-8.0 [facility] Comment on above: Performed By: #### 1 9123-9, CBCA, CMP ####[facility] ([id number])[address] [place] [address] 15983 Sodium [Moles/Vol] 136 mmol/L Normal 134-146 [facility] Comment on above: Performed By: #### 1 9123-9, CBCA, CMP ####[facility] ([id number])[address] [place] [address] 99291 Urea nitrogen [Mass/Vol] 33 mg/dL High 5-27 [facility] Comment on above: Performed By: #### 1 9123-9, CBCA, CMP ####[facility] ([id number])[address] [place] [address] 34752 Glucose Glucometer (BldC) [M ass/Vol]on 10-30-2024 Glucose [Mass/Vol] 169 mg/dL High 65-99 [facility] MAGNESIUMon 10-30-2024 Magnesium [Mass/Vol] 1.9 mg/dL Normal 1.8-2.6 [facility] Comment on above: Performed By: #### 1 9123-9, CBCA, CMP ####[facility] ([id number])[address] [place] [address] 63457 CBC AND AUTO DIFFon 12-15-20 24 ABSOLUTE BASOPHIL 0.0 X10E9/L Normal 0.0-0.2 [facility] Comment on above: Performed By: #### C FAITH CBCA, ####[facility] ([id number])[address] [place] [address] 93194 ABSOLUTE NEUTROPHIL 3.7 X10E9/L Normal 1.5-6.6 [facility] Comment on above: Performed By: #### C FAITH CBCA, ####[facility] ([id number])[address] [place] [address] 80298 Basophils/100 WBC (Bld) 0.7 % Normal [facility] Comment on above: Performed By: #### C FAITH, CBCA, ####[facility] ([id number])[address] [place] [address] 80368 Eosinophils (Bld) [#/Vol] 0.3 10*3/uL Normal 0.0-0.4 [facility] Comment on above: Performed By: #### C FAITH CBCA, ####[facility] ([id number])[address] [place] [address] 75661 Eosinophils/100 WBC (Bld) 4.3 % Normal [facility] Comment on above: Performed By: #### C FAITH CBCA, ####[facility] ([id number])[address] [place] [address] [place] [address] Erythrocyte distribution width (RBC) [Ratio] 15.9 % High 11.5-15.0 [facility] Comment on above: Performed By: #### C FAITH CBCA, ####[facility] ([id number])[address] [place] [address] 07027 Hematocrit (Bld) [Volume fraction] 31.1 % Low 35-47 [facility] Comment on above: Performed By: #### C FAITH, CBCA, ####[facility] ([id number])[address] [place] [address] 52402 Hemoglobin (Bld) [Mass/Vol] 10.4 g/dL Low 11.7-15.5 [facility] Comment on above: Performed By: #### C FAITH, CBCA, ####[facility] ([id number])[address] [place] [address] 50900 Lymphocytes (Bld) [#/Vol] 2.0 10*3/uL Normal 1.0-3.5 [facility] Comment on above: Performed By: #### C FAITH, CBCA, ####[facility] ([id number])[address] [place] [address] 33261 Lymphocytes/100 WBC (Bld) 29.4 % Normal [facility] Comment on above: Performed By: #### C FAITH, CBCA, ####[facility] ([id number])[address] [place] [address] 37603 MCH (RBC) [Entitic mass] 28.2 pg Normal 27-34 [facility] Comment on above: Performed By: #### C FAITH, CBCA, ####[facility] ([id number])[address] [place] [address] 95963 MCHC (RBC) [Mass/Vol] 33.5 g/dL Normal 32-36 [facility] Comment on above: Performed By: #### C FAITH, CBCA, ####[facility] ([id number])[address] [place] [address] 96056 MCV (RBC) [Entitic vol] 84 fL Normal 80-100 [facility] Comment on above: Performed By: #### C FAITH, CBCA, ####[facility] ([id number])[address] [place] [address] 44534 Monocytes (Bld) [#/Vol] 0.8 10*3/uL Normal 0-0.9 [facility] Comment on above: Performed By: #### C FAITH, CBCA, ####[facility] ([id number])[address] [place] [address] 36493 Monocytes/100 WBC (Bld) 12.0 % Normal [facility] Comment on above: Performed By: #### C FAITH, CBCA, ####[facility] ([id number])[address] [place] [address] 65770 Neutrophils/100 WBC (Bld) 53.6 % Normal [facility] Comment on above: Performed By: #### C FAITH, CBCA, ####[facility] ([id number])[address] [place] [address] [place] [address] Platelet mean volume (Bld) [Entitic vol] 9.1 fL Normal 7-12 [facility] Comment on above: Performed By: #### C FAITH, CBCA, ####[facility] ([id number])[address] [place] [address] 46761 Platelets (Bld) [#/Vol] 244 10*3/uL Normal 150-450 [facility] Comment on above: Performed By: #### C FAITH, CBCA, ####[facility] ([id number])[address] [place] [address] 08792 RBC COUNT 3.69 X10E12/L Low 3.80-5.20 [facility] Comment on above: Performed By: #### C FAITH, CBCA, ####[facility] ([id number])[address] [place] [address], [place] [address] WBC (Bld) [#/Vol] 6.9 10*3/uL Normal 4.0-11.0 [facility] Comment on above: Performed By: #### C CARMEN CUEVAS, ####[facility] ([id number])[address] [place] [address] 16252 COMPREHENSIVE METABOLIC PANE [facility] 10-29-2024 Albumin [Mass/Vol] 3.6 g/dL Normal 3.2-5.3 [facility] Comment on above: Performed By: #### C CARMEN CUEVAS, ####[facility] ([id number])[address] [place] [address] 71058 ALP [Catalytic activity/Vol] 87 U/L Normal 39-130 [facility] Comment on above: Performed By: #### C CARMEN CUEVAS, ####[facility] ([id number])[address] [place] [address] 55744 ALT [Catalytic activity/Vol] 17 U/L Normal 0-31 [facility] Comment on above: Performed By: #### C CARMEN CUEVAS, ####[facility] ([id number])[address] [place] [address] 55592 Anion gap [Moles/Vol] 9 mmol/L Normal 5-15 [facility] Comment on above: Performed By: #### C CARMEN CUEVAS, ####[facility] ([id number])[address] [place] [address] 45000 AST [Catalytic activity/Vol] 21 U/L Normal 0-41 [facility] Comment on above: Performed By: #### C CARMEN CUEVAS, ####[facility] ([id number])[address] [place] [address] 91047 Bilirubin [Mass/Vol] 0.3 mg/dL Normal 0.3-1.2 [facility] Comment on above: Performed By: #### C CARMEN CUEVAS, ####[facility] ([id number])[address] [place] [address] 93802 Calcium [Mass/Vol] 8.7 mg/dL Normal 8.5-10.5 [facility] Comment on above: Performed By: #### C CARMEN CUEVAS, ####[facility] ([id number])[address] [place] [address] 80133 Chloride [Moles/Vol] 100 mmol/L Normal 98-109 [facility] Comment on above: Performed By: #### C CARMEN CUEVAS, ####[facility] ([id number])[address] [place] [address] 79347 CO2 [Moles/Vol] 25 mmol/L Normal 22-32 [facility] Comment on above: Performed By: #### C CARMEN CUEVAS, ####[facility] ([id number])[address] [place] [address] 00286 Creatinine [Mass/Vol] 1.75 mg/dL High 0.40-1.00 [facility] Comment on above: Result Comment: METH OD TRACEABLE TO IDMS STANDARD Performed By: #### C CARMEN CUEVAS, ####[facility] ([id number])[address] [place] [address] 18137 GFR/1.73 sq M.predicted among non-blacks MDRD (S/P/Bld) [Vol rate/Area] 29 mL/min/{1.73_m2} Low >59 [facility] Comment on above: Result Comment: Repo rted eGFR is based on theCKD-EPI 2020 equation that doesnot use a race coefficient. Performed By: #### C CARMEN CUEVAS, ####[facility] ([id number])[address] [place] [address] [place] [address] Glucose [Mass/Vol] 266 mg/dL High 65-99 [facility] Comment on above: Performed By: #### C CARMEN CUEVAS, ####[facility] ([id number])[address] [place] [address] 82551 Potassium [Moles/Vol] 4.1 mmol/L Normal 3.5-5.0 [facility] Comment on above: Performed By: #### C CARMEN CUEVAS, ####[facility] ([id number])[address] [place] [address] 20498 Protein [Mass/Vol] 6.9 g/dL Normal 6.0-8.0 [facility] Comment on above: Performed By: #### C CARMEN CUEVAS, ####[facility] ([id number])[address] [place] [address] [place] [address] Sodium [Moles/Vol] 134 mmol/L Normal 134-146 [facility] Comment on above: Performed By: #### C CARMEN CUEVAS, ####[facility] ([id number])[address] [place] [address] 10467 Urea nitrogen [Mass/Vol] 37 mg/dL High 5-27 [facility] Comment on above: Performed By: #### C CARMEN CUEVAS, ####[facility] ([id number])[address] [place] [address] 10348 Glucose Glucometer (BldC) [M ass/Vol]on 10-29-2024 Glucose [Mass/Vol] 206 mg/dL High 65-99 [facility] Glucose [Mass/Vol] 179 mg/dL High 65-99 [facility] Glucose [Mass/Vol] 339 mg/dL High 65-99 [facility] MAGNESIUMon 10-29-2024 Magnesium [Mass/Vol] 1.9 mg/dL Normal 1.8-2.6 [facility] Comment on above: Performed By: #### C MP, CBCA, ####[facility] ([id number])[address] [place] [address] 87726 CBC AND AUTO DIFFon 10-28-20 ABSOLUTE BASOPHIL 0.0 X10E9/L Normal 0.0-0.2 [facility] Comment on above: Performed By: #### C NATIVIDAD, CMP, ####[facility] ([id number])[address] [place] [address] 16245 ABSOLUTE NEUTROPHIL 4.9 X10E9/L Normal 1.5-6.6 [facility] Comment on above: Performed By: #### C NATIVIDAD, [facility], ####[facility] ([id number])[address] [place] [address] 14457 Basophils/100 WBC (Bld) 0.4 % Normal [facility] Comment on above: Performed By: #### C NATIVIDAD, [facility], ####[facility] ([id number])[address] [place] [address] 19793 Eosinophils (Bld) [#/Vol] 0.1 10*3/uL Normal 0.0-0.4 [facility] Comment on above: Performed By: #### C BCA, CMP, ####[facility] ([id number])[address] [place] [address] 32381 Eosinophils/100 WBC (Bld) 1.1 % Normal [facility] Comment on above: Performed By: #### C BCA, CMP, ####[facility] ([id number])[address] [place] [address] 08023 Erythrocyte distribution width (RBC) [Ratio] 15.5 % High 11.5-15.0 [facility] Comment on above: Performed By: #### Renita HENSON [facility], ####[facility] ([id number])[address] [place] [address] 90059 Hematocrit (Bld) [Volume fraction] 33.5 % Low 35-47 [facility] Comment on above: Performed By: #### Renita HENSON CMP, ####[facility] ([id number])[address] [place] [address] 01720 Hemoglobin (Bld) [Mass/Vol] 11.1 g/dL Low 11.7-15.5 [facility] Comment on above: Performed By: #### Renita HENSON CMP, ####[facility] ([id number])[address] [place] [address] 54605 Lymphocytes (Bld) [#/Vol] 2.3 10*3/uL Normal 1.0-3.5 [facility] Comment on above: Performed By: #### Renita HENSON [facility], ####[facility] ([id number])[address] [place] [address] 87473 Lymphocytes/100 WBC (Bld) 27.9 % Normal [facility] Comment on above: Performed By: #### Renita HENSON CMP, ####[facility] ([id number])[address] [place] [address] 91052 MCH (RBC) [Entitic mass] 27.9 pg Normal 27-34 [facility] Comment on above: Performed By: #### Renita HENSON CMP, ####[facility] ([id number])[address] [place] [address] 76430 MCHC (RBC) [Mass/Vol] 33.1 g/dL Normal 32-36 [facility] Comment on above: Performed By: #### C NATIVIDAD, CMP, ####[facility] ([id number])[address] [place] [address] 65319 MCV (RBC) [Entitic vol] 84 fL Normal 80-100 [facility] Comment on above: Performed By: #### Renita HENSON, CMP, ####[facility] ([id number])[address] [place] [address] 74198 Monocytes (Bld) [#/Vol] 1.0 10*3/uL High 0-0.9 [facility] Comment on above: Performed By: #### C NATIVIDAD, CMP, ####[facility] ([id number])[address] [place] [address] 62300 Monocytes/100 WBC (Bld) 12.0 % Normal [facility] Comment on above: Performed By: #### Renita HENSON, CMP, ####[facility] ([id number])[address] [place] [address] 73166 Neutrophils/100 WBC (Bld) 58.6 % Normal [facility] Comment on above: Performed By: #### Renita HENSON, CMP, ####[facility] ([id number])[address] [place] [address] 85241 Platelet mean volume (Bld) [Entitic vol] 9.0 fL Normal 7-12 [facility] Comment on above: Performed By: #### Renita HENSON, CMP, ####[facility] ([id number])[address] [place] [address] 90086 Platelets (Bld) [#/Vol] 241 10*3/uL Normal 150-450 [facility] Comment on above: Performed By: #### Renita HENSON, CMP, ####[facility] ([id number])[address] [place] [address] 57343 RBC COUNT 3.97 X10E12/L Normal 3.80-5.20 [facility] Comment on above: Performed By: #### C NATIVIDAD, CMP, 43250-3 ####[facility] ([id number])[address] [place] [address] 29794 WBC (Bld) [#/Vol] 8.3 10*3/uL Normal 4.0-11.0 [facility] Comment on above: Performed By: #### C NATIVIDAD, CMP, 13443-8 ####[facility] ([id number])[address] [place] [address] 72119 COMPREHENSIVE METABOLIC PANE [facility] 10-28-2024 Albumin [Mass/Vol] 3.9 g/dL Normal 3.2-5.3 [facility] Comment on above: Performed By: #### C NATIVIDAD, CMP, 21637-4 ####[facility] ([id number])[address] [place] [address] 64310 ALP [Catalytic activity/Vol] 95 U/L Normal 39-130 [facility] Comment on above: Performed By: #### C NATIVIDAD, CMP, 05725-6 ####[facility] ([id number])[address] [place] [address] 89851 ALT [Catalytic activity/Vol] 15 U/L Normal 0-31 [facility] Comment on above: Performed By: #### C NATIVIDAD, CMP, 83518-6 ####[facility] ([id number])[address] [place] [address] 02193 Anion gap [Moles/Vol] 11 mmol/L Normal 5-15 [facility] Comment on above: Performed By: #### C BCA, CMP, 27177-0 ####[facility] ([id number])[address], [place] [address] AST [Catalytic activity/Vol] 24 U/L Normal 0-41 [facility] Comment on above: Performed By: #### C RUBEN HENSON, ####[facility] ([id number])[address] [place] [address] 11656 Bilirubin [Mass/Vol] 0.5 mg/dL Normal 0.3-1.2 [facility] Comment on above: Performed By: #### C RUBEN HENSON, ####[facility] ([id number])[address] [place] [address] 15741 Calcium [Mass/Vol] 9.5 mg/dL Normal 8.5-10.5 [facility] Comment on above: Performed By: #### C RUBEN HENSON, ####[facility] ([id number])[address] [place] [address] 17265 Chloride [Moles/Vol] 100 mmol/L Normal 98-109 [facility] Comment on above: Performed By: #### C [facility], ####[facility] ([id number])[address] [place] [address] 36277 CO2 [Moles/Vol] 23 mmol/L Normal 22-32 [facility] Comment on above: Performed By: #### Renita HENSON [facility], ####[facility] ([id number])[address] [place] [address] 63571 Creatinine [Mass/Vol] 1.59 mg/dL High 0.40-1.00 [facility] Comment on above: Result Comment: METH OD TRACEABLE TO IDMS STANDARD Performed By: #### C RUBEN HENSON, ####[facility] ([id number])[address] [place] [address] 48578 GFR/1.73 sq M.predicted among non-blacks MDRD (S/P/Bld) [Vol rate/Area] 33 mL/min/{1.73_m2} Low >59 [facility] Comment on above: Result Comment: Repo rted eGFR is based on theD-EPI 2020 equation that doesnot use a race coefficient. Performed By: #### Renita HENSON CMP, ####[facility] ([id number])[address] [place] [address] 76435 Glucose [Mass/Vol] 162 mg/dL High 65-99 [facility] Comment on above: Performed By: #### Renita HENSON [facility], ####[facility] ([id number])[address] [place] [address] 25906 Potassium [Moles/Vol] 4.1 mmol/L Normal 3.5-5.0 [facility] Comment on above: Performed By: #### Renita HENSON [facility], ####[facility] ([id number])[address] [place] [address] 79316 Protein [Mass/Vol] 7.7 g/dL Normal 6.0-8.0 [facility] Comment on above: Performed By: #### Renita HENSON [facility], ####[facility] ([id number])[address] [place] [address] 82842 Sodium [Moles/Vol] 134 mmol/L Normal 134-146 [facility] Comment on above: Performed By: #### Renita HENSON [facility], ####[facility] [facility] ([id number])[address] [place] [address] 75557 Urea nitrogen [Mass/Vol] 24 mg/dL Normal 5-27 [facility] Comment on above: Performed By: #### Renita HENSON [facility], ####[facility] ([id number])[address] [place] [address] 73076 Glucose Glucometer (BldC) [M ass/Vol]on 10-28-2024 Glucose [Mass/Vol] 216 mg/dL High 65-99 [facility] MAGNESIUMon 10-28-2024 Magnesium [Mass/Vol] 1.8 mg/dL Normal 1.8-2.6 [facility] Comment on above: Performed By: #### C BCA, CMP, 88468-2 ####[facility] ([id number])[address] [place] [address] 12070 XR CHEST 1 VWon 10-28-2024 XR CHEST 1 VW Normal [facility] aPTT Coag (PPP) [Time]on aPTT Coag (Bld) [Time] 27 s Normal 26-37 [facility] Comment on above: Result Comment: NEW REFERENCE RANGE Performed By: #### 1 4979-9 ####[facility] ([id number])[address] [place] [address] 72555 CBC AND AUTO DIFFon 10-27-20 24 ABSOLUTE BASOPHIL 0.0 X10E9/L Normal 0.0-0.2 [facility] Comment on above: Performed By: #### C MP, CBCA ####[facility] ([id number])[address] [place] [address] 91131 ABSOLUTE NEUTROPHIL 8.4 X10E9/L High 1.5-6.6 [facility] Comment on above: Performed By: #### C MP, CBCA ####[facility] ([id number])[address] [place] [address] 86689 Basophils/100 WBC (Bld) 0.4 % Normal [facility] Comment on above: Performed By: #### C MP, CBCA ####[facility] ([id number])[address] [place] [address] 65918 Eosinophils (Bld) [#/Vol] 0.0 10*3/uL Normal 0.0-0.4 [facility] Comment on above: Performed By: #### C MP, CBCA ####[facility] ([id number])[address] [place] [address] 37052 Eosinophils/100 WBC (Bld) 0.1 % Normal [facility] Comment on above: Performed By: #### C MP, CBCA ####[facility] ([id number])[address] [place] [address] 70492 Erythrocyte distribution width (RBC) [Ratio] 15.7 % High 11.5-15.0 [facility] Comment on above: Performed By: #### C MP, CBCA ####[facility] ([id number])[address] [place] [address] 93372 Hematocrit (Bld) [Volume fraction] 36.1 % Normal 35-47 [facility] Comment on above: Performed By: #### C MP, CBCA ####[facility] ([id number])[address] [place] [address] 58358 Hemoglobin (Bld) [Mass/Vol] 11.8 g/dL Normal 11.7-15.5 [facility] Comment on above: Performed By: #### C MP, CBCA ####[facility] ([id number])[address] [place] [address] 22495 Lymphocytes (Bld) [#/Vol] 0.8 10*3/uL Low 1.0-3.5 [facility] Comment on above: Performed By: #### C MP, CBCA ####[facility] ([id number])[address] [place] [address] 15790 Lymphocytes/100 WBC (Bld) 8.2 % Normal [facility] Comment on above: Performed By: #### C MP, CBCA ####[facility] ([id number])[address] [place] [address] 89976 MCH (RBC) [Entitic mass] 27.6 pg Normal 27-34 [facility] Comment on above: Performed By: #### C MP, CBCA ####[facility] ([id number])[address] [place] [address] 70879 MCHC (RBC) [Mass/Vol] 32.8 g/dL Normal 32-36 [facility] Comment on above: Performed By: #### C MP, CBCA ####[facility] ([id number])[address] [place] [address] 49733 MCV (RBC) [Entitic vol] 84 fL Normal 80-100 [facility] Comment on above: Performed By: #### C MP, CBCA ####[facility] ([id number])[address] [place] [address] 33782 Monocytes (Bld) [#/Vol] 0.7 10*3/uL Normal 0-0.9 [facility] Comment on above: Performed By: #### C MP, CBCA ####[facility] ([id number])[address] [place] [address] 05471 Monocytes/100 WBC (Bld) 7.4 % Normal [facility] Comment on above: Performed By: #### C MP, CBCA ####[facility] ([id number])[address] [place] [address] 65272 Neutrophils/100 WBC (Bld) 83.9 % Normal [facility] Comment on above: Performed By: #### C MP, CBCA ####[facility] ([id number])[address] [place] [address] 20169 Platelet mean volume (Bld) [Entitic vol] 8.4 fL Normal 7-12 [facility] Comment on above: Performed By: #### C MP, CBCA ####[facility] ([id number])[address] [place] [address] 53063 Platelets (Bld) [#/Vol] 282 10*3/uL Normal 150-450 [facility] Comment on above: Performed By: #### C MP, CBCA ####[facility] ([id number])[address] [place] [address] 42564 RBC COUNT 4.29 X10E12/L Normal 3.80-5.20 [facility] Comment on above: Performed By: #### C MP, CBCA ####[facility] ([id number])[address] [place] [address] 51300 WBC (Bld) [#/Vol] 10.0 10*3/uL Normal 4.0-11.0 [facility] Comment on above: Performed By: #### C FAITH, CBCA ####[facility] ([id number])[address] [place] [address] 37224 COMPREHENSIVE METABOLIC PANE [facility] 10-27-2024 Albumin [Mass/Vol] 4.3 g/dL Normal 3.2-5.3 [facility] Comment on above: Performed By: #### C FAITH, CBCA ####[facility] ([id number])[address] [place] [address] 88808 ALP [Catalytic activity/Vol] 108 U/L Normal 39-130 [facility] Comment on above: Performed By: #### C MP, CBCA ####[facility] ([id number])[address] [place] [address] 22890 ALT [Catalytic activity/Vol] 17 U/L Normal 0-31 [facility] Comment on above: Performed By: #### C MP, CBCA ####[facility] ([id number])[address] [place] [address] 41527 Anion gap [Moles/Vol] 13 mmol/L Normal 5-15 [facility] Comment on above: Performed By: #### C FAITH CBCA ####[facility] ([id number])[address] [place] [address], [place] [address] AST [Catalytic activity/Vol] 27 U/L Normal 0-41 [facility] Comment on above: Performed By: #### C AFITH CBCA ####[facility] ([id number])[address] [place] [address], [place] [address] Bilirubin [Mass/Vol] 0.4 mg/dL Normal 0.3-1.2 [facility] Comment on above: Performed By: #### C FAITH CBCA ####[facility] ([id number])[address] [place] [address] [place] [address] Calcium [Mass/Vol] 9.7 mg/dL Normal 8.5-10.5 [facility] Comment on above: Performed By: #### C FAITH CBCDanielle ####[facility] ([id number])[address] [place] [address], [place] [address] Chloride [Moles/Vol] 96 mmol/L Low 98-109 [facility] Comment on above: Performed By: #### C FAITH CBCA ####[facility] ([id number])[address] [place] [address] [place] [address] CO2 [Moles/Vol] 25 mmol/L Normal 22-32 [facility] Comment on above: Performed By: #### C FAITH CBCA ####[facility] ([id number])[address] [place] [address], [place] [address] Creatinine [Mass/Vol] 1.44 mg/dL High 0.40-1.00 [facility] Comment on above: Result Comment: METH OD TRACEABLE TO IDMS STANDARD Performed By: #### C FAITH CBCA ####[facility] ([id number])[address] [place] [address], [place] [address] GFR/1.73 sq M.predicted among non-blacks MDRD (S/P/Bld) [Vol rate/Area] 37 mL/min/{1.73_m2} Low >59 [facility] Comment on above: Result Comment: Repo rted eGFR is based on theCKD-EPI 2020 equation that doesnot use a race coefficient. Performed By: #### C FAITH, CBCA ####[facility] ([id number])[address] [place] [address] [place] [address] Glucose [Mass/Vol] 137 mg/dL High 65-99 [facility] Comment on above: Performed By: #### C FAITH, CBCA ####[facility] ([id number])[address] [place] [address] 49870 Potassium [Moles/Vol] 3.8 mmol/L Normal 3.5-5.0 [facility] Comment on above: Performed By: #### C FAITH, CBCA ####[facility] ([id number])[address] [place] [address] 60250 Protein [Mass/Vol] 8.4 g/dL High 6.0-8.0 [facility] Comment on above: Performed By: #### C FAITH, CBCA ####[facility] ([id number])[address] [place] [address] 25396 Sodium [Moles/Vol] 134 mmol/L Normal 134-146 [facility] Comment on above: Performed By: #### C FAITH, CBCA ####[facility] ([id number])[address] [place] [address] 23658 Urea nitrogen [Mass/Vol] 22 mg/dL Normal 5-27 [facility] Comment on above: Performed By: #### C FAITH, CBCA ####[facility] ([id number])[address] [place] [address] ABDOMEN AND PELVIS WO CON Ton 10-27-2024 CT ABDOMEN AND PELVIS WO CONT Normal [facility] Glucose Glucometer (BldC) [M ass/Vol]on 10-27-2024 Glucose [Mass/Vol] 157 mg/dL High 65-99 [facility] Glucose [Mass/Vol] 117 mg/dL High 65-99 [facility] Lactate (P obed) [Moles/Vol]o n 10-27-2024 LACTATE W/REFLEX 1.8 mmol/L Normal 0.4-2.0 [facility] Comment on above: Result Comment: Resu lt did not trigger repeat Lactate,re-order if needed. Performed By: #### 3 2133-1 ####[facility] ([id number])[address] [place] [address] 38288 URINE CULTUREon 10-27-2024 Bacteria identified Cx Nom (U) CULTURE RESULTS 10-50,000 ORGANISMS/mL NORMAL UROGENITAL BAILEY Normal [facility] Comment on above: Performed By: #### 6 30-4 ####[facility] ([id number])[address] [place] [address], [address], [place] [address] URN MACROSCOPIC NURon 2023 BILIRUBIN MARYJO Negative Normal NEG [facility] Comment on above: Performed By: #### N UM ####[facility] ([id number])[address] [place] [address] 87547 BLOOD/HGB MARYJO MODERATE Abnormal NEG [facility] Comment on above: Performed By: #### N UM ####[facility] ([id number])[address] [place] [address] 82523 GLUCOSE MARYJO Negative Normal NEG [facility] Comment on above: Performed By: #### N UM ####[facility] ([id number])[address] [place] [address] 38505 KETONES MARYJO 15 mg/dL Abnormal NEG [facility] Comment on above: Performed By: #### N UM ####[facility] ([id number])[address] [place] [address], [place] [address] LEUKOCYTE ESTERASE MARYJO Small Abnormal NEG [facility] Comment on above: Performed By: #### N UM ####[facility] ([id number])[address] [place] [address], [place] [address] NITRITE MARYJO Negative Normal NEG [facility] Comment on above: Performed By: #### N UM ####[facility] ([id number])[address] [place] [address] [place] [address] PH MARYJO 5.5 Normal 5.0-8.5 [facility] Comment on above: Performed By: #### N UM ####[facility] ([id number])[address] [place] [address] 00693 PROTEIN MARYJO 100 mg/dL Abnormal NEG [facility] Comment on above: Performed By: #### N UM ####[facility] ([id number])[address] [place] [address] [place] [address] SPECIFIC GRAVITY MARYJO 1.025 Normal 1.003-1.[address] [place] [address] Comment on above: Performed By: #### N UM ####[facility] ([id number])[address] [place] [address] [place] [address] UROBILINOGEN MARYJO 0.2 eu/dL Normal <1.1 [facility] Comment on above: Performed By: #### N UM ####[facility] ([id number])[address] [place] [address] [place] [address] BASIC METABOLIC PANLon 10-11 Anion gap [Moles/Vol] 10 mmol/L Normal 5-15 [facility] Comment on above: Performed By: #### C BCA, 99928-1, BMP ####[facility] ([id number])[address] [place] [address] 80625 Calcium [Mass/Vol] 9.4 mg/dL Normal 8.5-10.5 [facility] Comment on above: Performed By: #### Renita HENSON, 25668-6, BMP ####[facility] ([id number])[address] [place] [address] 03862 Chloride [Moles/Vol] 103 mmol/L Normal 98-109 [facility] Comment on above: Performed By: #### Renita HENSON, 59981-9, BMP ####[facility] ([id number])[address] [place] [address] 43716 CO2 [Moles/Vol] 23 mmol/L Normal 22-32 [facility] Comment on above: Performed By: #### Renita HENSON, 50456-9, BMP ####[facility] ([id number])[address] [place] [address] 06822 Creatinine [Mass/Vol] 1.49 mg/dL High 0.40-1.00 [facility] Comment on above: Result Comment: METH OD TRACEABLE TO IDMS STANDARD Performed By: #### Renita HENSON, 47959-5, BMP ####[facility] ([id number])[address] [place] [address] 60357 GFR/1.73 sq M.predicted among non-blacks MDRD (S/P/Bld) [Vol rate/Area] 36 mL/min/{1.73_m2} Low >59 [facility] Comment on above: Result Comment: Repo rted eGFR is based on theCKD-EPI 2020 equation that doesnot use a race coefficient. Performed By: #### Renita HENSON, 48267-3, BMP ####[facility] ([id number])[address] [place] [address] 32719 Glucose [Mass/Vol] 185 mg/dL High 65-99 [facility] Comment on above: Performed By: #### Renita HENSON 37597-6, BMP ####[facility] ([id number])[address] [place] [address] 04269 Potassium [Moles/Vol] 4.5 mmol/L Normal 3.5-5.0 [facility] Comment on above: Result Comment: SPEC IMEN HEMOLYZED, RESULTS INCREASED Performed By: #### Renita HENSON, 52875-4, BMP ####[facility] ([id number])[address] [place] [address] 03693 Sodium [Moles/Vol] 136 mmol/L Normal 134-146 [facility] Comment on above: Performed By: #### Renita HENSON 74733-2, BMP ####[facility] ([id number])[address] [place] [address] 39540 Urea nitrogen [Mass/Vol] 23 mg/dL Normal 5-27 [facility] Comment on above: Performed By: #### Renita HENSON 34626-9, BMP ####[facility] ([id number])[address] [place] [address] 61583 CBC AND AUTO DIFFon 10-11- 24 ABSOLUTE BASOPHIL 0.1 X10E9/L Normal 0.0-0.2 [facility] Comment on above: Performed By: #### Renita HENSON 18178-1, BMP ####[facility] ([id number])[address] [place] [address] 21934 ABSOLUTE NEUTROPHIL 5.5 X10E9/L Normal 1.5-6.6 [facility] Comment on above: Performed By: #### Renita HENSON 46924-8, BMP ####[facility] ([id number])[address] [place] [address] 85232 Basophils/100 WBC (Bld) 0.8 % Normal [facility] Comment on above: Performed By: #### Renita HENSON, 37530-5, BMP ####[facility] ([id number])[address] [place] [address] 89772 Eosinophils (Bld) [#/Vol] 0.2 10*3/uL Normal 0.0-0.4 [facility] Comment on above: Performed By: #### Renita HENSON, 53465-6, BMP ####[facility] ([id number])[address] [place] [address] 83861 Eosinophils/100 WBC (Bld) 2.2 % Normal [facility] Comment on above: Performed By: #### Renita HENSON 97203-7, BMP ####[facility] ([id number])[address] [place] [address] 63195 Erythrocyte distribution width (RBC) [Ratio] 15.8 % High 11.5-15.0 [facility] Comment on above: Performed By: #### Renita HENSON 49475-2, BMP ####[facility] ([id number])[address] [place] [address] 12017 Hematocrit (Bld) [Volume fraction] 32.2 % Low 35-47 [facility] Comment on above: Performed By: #### Renita HENSON 95297-0, BMP ####[facility] ([id number])[address] [place] [address] 61859 Hemoglobin (Bld) [Mass/Vol] 10.7 g/dL Low 11.7-15.5 [facility] Comment on above: Performed By: #### Renita HENSON 38040-1, BMP ####[facility] ([id number])[address] [place] [address] 91360 Lymphocytes (Bld) [#/Vol] 1.9 10*3/uL Normal 1.0-3.5 [facility] Comment on above: Performed By: #### Renita HENSON 75908-1, BMP ####[facility] ([id number])[address] [place] [address] 27098 Lymphocytes/100 WBC (Bld) 22.1 % Normal [facility] Comment on above: Performed By: #### Renita HENSON 22969-3, BMP ####[facility] ([id number])[address] [place] [address] 42869 MCH (RBC) [Entitic mass] 28.1 pg Normal 27-34 [facility] Comment on above: Performed By: #### Renita HENSON 99673-2, BMP ####[facility] ([id number])[address] [place] [address] 48081 MCHC (RBC) [Mass/Vol] 33.1 g/dL Normal 32-36 [facility] Comment on above: Performed By: #### Renita HENSON 69858-0, BMP ####[facility] ([id number])[address] [place] [address] 65181 MCV (RBC) [Entitic vol] 85 fL Normal 80-100 [facility] Comment on above: Performed By: #### Renita HENSON 99388-3, BMP ####[facility] ([id number])[address] [place] [address] 02114 Monocytes (Bld) [#/Vol] 1.0 10*3/uL High 0-0.9 [facility] Comment on above: Performed By: #### Renita HENSON 78377-0, BMP ####[facility] ([id number])[address] [place] [address] 73177 Monocytes/100 WBC (Bld) 11.6 % Normal [facility] Comment on above: Performed By: #### Renita HENSON 33227-0, BMP ####[facility] ([id number])[address] [place] [address] 22281 Neutrophils/100 WBC (Bld) 63.3 % Normal [facility] Comment on above: Performed By: #### Renita HENSON, 36781-5, BMP ####[facility] ([id number])[address] [place] [address] 61337 Platelet mean volume (Bld) [Entitic vol] 8.4 fL Normal 7-12 [facility] Comment on above: Performed By: #### Renita HENSON, 83690-1, BMP ####[facility] ([id number])[address] [place] [address] 68505 Platelets (Bld) [#/Vol] 368 10*3/uL Normal 150-450 [facility] Comment on above: Performed By: #### Renita HENSON, 09983-1, BMP ####[facility] ([id number])[address] [place] [address] 52286 RBC COUNT 3.79 X10E12/L Low 3.80-5.20 [facility] Comment on above: Performed By: #### Renita HENSON, 85135-3, BMP ####[facility] ([id number])[address] [place] [address] 62900 WBC (Bld) [#/Vol] 8.7 10*3/uL Normal 4.0-11.0 [facility] Comment on above: Performed By: #### Renita HENSON, 17284-2, BMP ####[facility] ([id number])[address] [place] [address] ABDOMEN AND PELVIS WO CON Ton 10-11-2024 CT ABDOMEN AND PELVIS WO CONT Normal [facility] Troponin I.cardiac High sens itivity method [Mass/Vol]on 10-11-2024 1 HOUR TROP I, HIGH SENSITIVITY 20 ng/L High <16 [facility] Comment on above: Result Comment: Elev ations of hs-Troponin may be due to causesother than myocardial ischemia.Recommend serial hs-Troponin testing be performed.For the initial evaluation and management of chestpain patients, refer to the algorithms linked below.Emergency Patient:[email or web address]:[email or web address] Performed By: #### 8 9579-7 ####[facility] ([id number])[address] [place] [address] 58246 TROPONIN I, HIGH SENSITIVITY 21 ng/L High <16 [facility] Comment on above: Result Comment: Elev ations of hs-Troponin may be due to causesother than myocardial ischemia.Recommend serial hs-Troponin testing be performed.For the initial evaluation and management of chestpain patients, refer to the algorithms linked below.Emergency Patient:[email or web address]:[email or web address] Performed By: #### C BCA, 75285-5, BMP ####[facility] ([id number])[address] [place] [address] 90733 URINE CULTUREon 10-10-2024 Bacteria identified Cx Nom (U) CULTURE RESULTS MULTIPLE SPECIES PRESENT. PROBABLE COLLECTION CONTAMINATION. SUGGEST REPEAT SPECIMEN. Normal [facility] Comment on above: Performed By: #### 6 30-4 ####[facility] ([id number])[address] [facility], [address], [place] [address] URN MACROSCOPIC NURon 2023 BILIRUBIN MARYJO Negative Normal NEG [facility] Comment on above: Performed By: #### N UM ####[facility] ([id number])[address] [place] [address] 42088 BLOOD/HGB MARYJO Small Abnormal NEG [facility] Comment on above: Performed By: #### N UM ####[facility] ([id number])[address] [place] [address] [place] [address] GLUCOSE MARYJO Negative Normal NEG [facility] Comment on above: Performed By: #### N UM ####[facility] ([id number])[address] [place] [address] [place] [address] KETONES MARYJO Trace Abnormal NEG [facility] Comment on above: Performed By: #### N UM ####[facility] ([id number])[address] [place] [address] 71433 LEUKOCYTE ESTERASE MARYJO Large Abnormal NEG [facility] Comment on above: Performed By: #### N UM ####[facility] ([id number])[address] [place] [address] [place] [address] NITRITE MARYJO Positive Abnormal NEG [facility] Comment on above: Performed By: #### N UM ####[facility] ([id number])[address] [place] [address] PH MARYJO 8.5 Normal 5.0-8.5 [facility] Comment on above: Performed By: #### N UM ####[facility] ([id number])[address] [place] [address] [place] [address] PROTEIN MARYJO >=300 Abnormal NEG [facility] Comment on above: Performed By: #### N UM ####[facility] ([id number])[address] [place] [address] [place] [address] SPECIFIC GRAVITY MARYJO 1.015 Normal 1.003-1.[address] [place] [address] Comment on above: Performed By: #### N UM ####[facility] ([id number])[address] [place] [address] [place] [address] UROBILINOGEN MARYJO 0.2 eu/dL Normal <1.1 [facility] Comment on above: Performed By: #### N UM ####[facility] ([id number])[address] [place] [address] CBC AND AUTO DIFFon 10-10-20 24 ABSOLUTE BASOPHIL 0.0 X10E9/L Normal 0.0-0.2 [facility] Comment on above: Performed By: #### C MP, CBCA, ####[facility] ([id number])[address] [place] [address] ABSOLUTE NEUTROPHIL 6.0 X10E9/L Normal 1.5-6.6 [facility] Comment on above: Performed By: #### C FAITH, CBCA, ####[facility] ([id number])[address] [place] [id number] Basophils/100 WBC (Bld) 0.3 % Normal [facility] Comment on above: Performed By: #### C MP, CBCA, ####[facility] ([id number])[address] [place] [address] Eosinophils (Bld) [#/Vol] 0.3 10*3/uL Normal 0.0-0.4 [facility] Comment on above: Performed By: #### C MP, CBCA, ####[facility] ([id number])[address] [place] [address] Eosinophils/100 WBC (Bld) 2.7 % Normal [facility] Comment on above: Performed By: #### C MP, CBCA, ####[facility] ([id number])[address] [place] [address] [place] [address] Erythrocyte distribution width (RBC) [Ratio] 15.9 % High 11.5-15.0 [facility] Comment on above: Performed By: #### C FAITH, CBCA, ####[facility] ([id number])[address] [place] [address] 52713 Hematocrit (Bld) [Volume fraction] 29.0 % Low 35-47 [facility] Comment on above: Performed By: #### C FAITH, CBCA, ####[facility] ([id number])[address] [place] [address] 23981 Hemoglobin (Bld) [Mass/Vol] 9.5 g/dL Low 11.7-15.5 [facility] Comment on above: Performed By: #### C FAITH, CBCA, ####[facility] ([id number])[address] [place] [address] 73982 Lymphocytes (Bld) [#/Vol] 3.0 10*3/uL Normal 1.0-3.5 [facility] Comment on above: Performed By: #### C FAITH, CBCA, ####[facility] ([id number])[address] [place] [address] 71416 Lymphocytes/100 WBC (Bld) 28.8 % Normal [facility] Comment on above: Performed By: #### C FAITH, CBCA, ####[facility] ([id number])[address] [place] [address] 75464 MCH (RBC) [Entitic mass] 27.7 pg Normal 27-34 [facility] Comment on above: Performed By: #### C FAITH, CBCA, ####[facility] ([id number])[address] [place] [address] 66345 MCHC (RBC) [Mass/Vol] 32.7 g/dL Normal 32-36 [facility] Comment on above: Performed By: #### C FAITH, CBCA, ####[facility] ([id number])[address] [place] [address] 57454 MCV (RBC) [Entitic vol] 85 fL Normal 80-100 [facility] Comment on above: Performed By: #### C FAITH, CBCA, ####[facility] ([id number])[address] [place] [address] 61784 Monocytes (Bld) [#/Vol] 1.0 10*3/uL High 0-0.9 [facility] Comment on above: Performed By: #### C FAITH, CBCA, ####[facility] ([id number])[address] [place] [address] 34069 Monocytes/100 WBC (Bld) 9.8 % Normal [facility] Comment on above: Performed By: #### C FAITH, CBCA, ####[facility] ([id number])[address] [place] [address] 37230 Neutrophils/100 WBC (Bld) 58.4 % Normal [facility] Comment on above: Performed By: #### C FAITH, CBCA, ####[facility] ([id number])[address] [place] [address] 49777 Platelet mean volume (Bld) [Entitic vol] 8.7 fL Normal 7-12 [facility] Comment on above: Performed By: #### C FAITH, CBCA, ####[facility] ([id number])[address] [place] [address] 33528 Platelets (Bld) [#/Vol] 189 10*3/uL Normal 150-450 [facility] Comment on above: Performed By: #### C FAITH, CBCA, ####[facility] ([id number])[address] [place] [address] [place] [address] RBC COUNT 3.43 X10E12/L Low 3.80-5.20 [facility] Comment on above: Performed By: #### C CARMEN CUEVAS, ####[facility] ([id number])[address] [place] [address] 98269 WBC (Bld) [#/Vol] 10.2 10*3/uL Normal 4.0-11.0 [facility] Comment on above: Performed By: #### C CARMEN CUEVAS, ####[facility] ([id number])[address] [place] [address] 13462 COMPREHENSIVE METABOLIC PANE [facility] 08-24-2024 Albumin [Mass/Vol] 3.0 g/dL Low 3.2-5.3 [facility] Comment on above: Performed By: #### C CARMEN CUEVAS, ####[facility] ([id number])[address] [place] [address] 85762 ALP [Catalytic activity/Vol] 70 U/L Normal 39-130 [facility] Comment on above: Performed By: #### C CARMEN CUEVAS, ####[facility] ([id number])[address] [place] [address] 83382 ALT [Catalytic activity/Vol] 15 U/L Normal 0-31 [facility] Comment on above: Performed By: #### C CARMEN CUEVAS, ####[facility] ([id number])[address] [place] [address] 62721 Anion gap [Moles/Vol] 7 mmol/L Normal 5-15 [facility] Comment on above: Performed By: #### C CARMEN CUEVAS, ####[facility] ([id number])[address] [place] [address] 25581 AST [Catalytic activity/Vol] 20 U/L Normal 0-41 [facility] Comment on above: Performed By: #### C CARMEN CUEVAS, ####[facility] ([id number])[address] [place] [address] 59423 Bilirubin [Mass/Vol] 0.8 mg/dL Normal 0.3-1.2 [facility] Comment on above: Performed By: #### C CARMEN CUEVAS, ####[facility] ([id number])[address] [place] [address] 92317 Calcium [Mass/Vol] 8.4 mg/dL Low 8.5-10.5 [facility] Comment on above: Performed By: #### C CARMEN CUEVAS, ####[facility] ([id number])[address] [place] [address] 09984 Chloride [Moles/Vol] 105 mmol/L Normal 98-109 [facility] Comment on above: Performed By: #### C CARMEN CUEVAS, ####[facility] ([id number])[address] [place] [address] 25561 CO2 [Moles/Vol] 24 mmol/L Normal 22-32 [facility] Comment on above: Performed By: #### C CARMEN CUEVAS, ####[facility] ([id number])[address] [place] [address] 42280 Creatinine [Mass/Vol] 1.36 mg/dL High 0.40-1.00 [facility] Comment on above: Result Comment: METH OD TRACEABLE TO IDMS STANDARD Performed By: #### C CARMEN CUEVAS, ####[facility] ([id number])[address] [place] [address] 22576 GFR/1.73 sq M.predicted among non-blacks MDRD (S/P/Bld) [Vol rate/Area] 40 mL/min/{1.73_m2} Low >59 [facility] Comment on above: Result Comment: Repo rted eGFR is based on theCKD-EPI 2020 equation that doesnot use a race coefficient. Performed By: #### C CARMEN CUEVAS, ####[facility] ([id number])[address] [place] [address] 71971 Glucose [Mass/Vol] 215 mg/dL High 65-99 [facility] Comment on above: Performed By: #### C CARMEN CUEVAS, ####[facility] ([id number])[address] [place] [address] 81827 Potassium [Moles/Vol] 4.7 mmol/L Normal 3.5-5.0 [facility] Comment on above: Performed By: #### C CARMEN CUEVAS, ####[facility] ([id number])[address] [place] [address] [place] [address] Protein [Mass/Vol] 6.0 g/dL Normal 6.0-8.0 [facility] Comment on above: Performed By: #### C ACRMEN CUEVAS, ####[facility] ([id number])[address] [place] [address] 20916 Sodium [Moles/Vol] 136 mmol/L Normal 134-146 [facility] Comment on above: Performed By: #### CARMEN Maravilla MP, ####[facility] ([id number])[address] [place] [address] 17060 Urea nitrogen [Mass/Vol] 16 mg/dL Normal 5-27 [facility] Comment on above: Performed By: #### CARMEN Maravilla MP, ####[facility] ([id number])[address] [place] [address] [place] [address] Glucose Glucometer (BldC) [M ass/Vol]on 08-24-2024 Glucose [Mass/Vol] 358 mg/dL High 65-99 [facility] MAGNESIUMon 08-24-2024 Magnesium [Mass/Vol] 2.5 mg/dL Normal 1.8-2.6 [facility] Comment on above: Performed By: #### C MP, CBCA, 39081-2 ####[facility] ([id number])[address] [place] [address] 11619 BLOOD CULTUREon 08-23-2024 Bacteria identified Aer cx Nom (Bld) SPECIMEN NOTES L HAND CULTURE RESULTS NO GROWTH 5 DAYS Normal [facility] Comment on above: Performed By: #### 1 7928-3 ####[facility] ([id number])[address] [place] [address] 84294 Bacteria identified Aer cx Nom (Bld) SPECIMEN NOTES R HAND SOV CULTURE RESULTS NO GROWTH 5 DAYS Normal [facility] Comment on above: Performed By: #### 1 7928-3 ####[facility] ([id number])[address] [place] [address], [address], [place] [address] CBC AND AUTO DIFFon 08-23-20 24 Band form neutrophils/100 WBC (Bld) 1.0 % Normal [facility] Comment on above: Performed By: #### 2 639-3, 6, CBCA, CMP, 3040-3, 84978-0, 00143-5, 32364-2, 5643-2 ####[facility] ([id number])[address] [place] [address] 64172 Erythrocyte distribution width (RBC) [Ratio] 15.7 % High 11.5-15.0 [facility] Comment on above: Performed By: #### 2 639-3, 6, CBCA, CMP, 3040-3, 71544-8, 47083-1, 94273-2, 5643-2 ####[facility] ([id number])[address] [place] [address] 47197 Hematocrit (Bld) [Volume fraction] 36.1 % Normal 35-47 [facility] Comment on above: Performed By: #### 2 639-3, 2157-04, CBCA, CMP, 3040-3, 57257-0, 70821-4, 56103-6, 5643-2 ####[facility] ([id number])[address] [place] [address] 77715 Hemoglobin (Bld) [Mass/Vol] 11.5 g/dL Low 11.7-15.5 [facility] Comment on above: Performed By: #### 2 639-3, 2157-04, CBCA, CMP, 3040-3, 87814-3, 17000-5, 78128-5, 5643-2 ####[facility] ([id number])[address] [place] [address] 76426 LYMPHOCYTE, ATYPICAL 1.0 % Normal [facility] Comment on above: Performed By: #### 2 639-3, 2157-04, CBCA, CMP, 3040-3, 46238-6, 58804-0, 57683-5, 5643-2 ####[facility] ([id number])[address] [place] [address] 59899 Lymphocytes (Bld) [#/Vol] 2.6 10*3/uL Normal 1.0-3.5 [facility] Comment on above: Performed By: #### 2 639-3, 6, CBCA, CMP, 3040-3, 20131-9, 53362-6, 00234-2, 5643-2 ####[facility] ([id number])[address] [place] [address] 48464 Lymphocytes/100 WBC (Bld) 18.0 % Normal [facility] Comment on above: Performed By: #### 2 639-3, 2157-6, CBCA, CMP, 3040-3, 65276-1, 58108-6, 37800-6, 5643-2 ####[facility] ([id number])[address] [place] [address] 05015 MCH (RBC) [Entitic mass] 27.2 pg Normal 27-34 [facility] Comment on above: Performed By: #### 2 639-3, 2156-6, CBCA, CMP, 3040-3, 29987-8, 21563-9, 38455-4, 5643-2 ####[facility] ([id number])[address] [place] [address] 68885 MCHC (RBC) [Mass/Vol] 32.0 g/dL Normal 32-36 [facility] Comment on above: Performed By: #### 2 639-3, 6, CBCA, CMP, 3040-3, 79136-5, 93279-1, 89432-8, 5643-2 ####[facility] ([id number])[address] [place] [address] 69578 MCV (RBC) [Entitic vol] 85 fL Normal 80-100 [facility] Comment on above: Performed By: #### 2 639-3, 6, CBCA, CMP, 3040-3, 38093-4, 67334-9, 36901-5, 5643-2 ####[facility] ([id number])[address] [place] [address] 57212 Monocytes (Bld) [#/Vol] 0.8 10*3/uL Normal 0-0.9 [facility] Comment on above: Performed By: #### 2 639-3, 2156-6, CBCA, CMP, 3040-3, 95184-2, 41385-4, 57186-3, 5643-2 ####[facility] ([id number])[address] [place] [address] 76921 Monocytes/100 WBC (Bld) 6.0 % Normal [facility] Comment on above: Performed By: #### 2 639-3, 6, CBCA, CMP, 3040-3, 67615-8, 84650-7, 38434-1, 5643-2 ####[facility] ([id number])[address] [place] [address] 47936 MYELOCYTE 1.0 % Normal [facility] Comment on above: Performed By: #### 2 639-3, 6, CBCA, CMP, 3040-3, 54448-2, 62677-3, 20439-4, 5643-2 ####[facility] ([id number])[address] [place] [address] 39578 Neutrophils (Bld) [#/Vol] 10.5 10*3/uL High 1.5-6.6 [facility] Comment on above: Performed By: #### 2 639-3, 6, CBCA, CMP, 3040-3, 62662-6, 60711-7, 47898-4, 5643-2 ####[facility] ([id number])[address] [place] [address] 07871 OVALOCYTE 1+ Abnormal NONE [facility] Comment on above: Performed By: #### 2 639-3, 6, CBCA, CMP, 3040-3, 57208-3, 10778-6, 79234-9, 5643-2 ####[facility] ([id number])[address] [place] [address] 43261 Platelet mean volume (Bld) [Entitic vol] 8.3 fL Normal 7-12 [facility] Comment on above: Performed By: #### 2 639-3, 6, CBCA, CMP, 3040-3, 90437-8, 23976-5, 65583-7, 5643-2 ####[facility] ([id number])[address] [place] [address] 96571 Platelets (Bld) [#/Vol] 262 10*3/uL Normal 150-450 [facility] Comment on above: Performed By: #### 2 639-3, 2157-6, CBCA, CMP, 3040-3, 60530-6, 50113-2, 96484-8, 5643-2 ####[facility] ([id number])[address] [place] [address] 55819 RBC COUNT 4.25 X10E12/L Normal 3.80-5.20 [facility] Comment on above: Performed By: #### 2 639-3, 2156-6, CBCA, CMP, 3040-3, 25330-4, 36191-9, 09056-2, 5643-2 ####[facility] ([id number])[address] [place] [address] 68721 SEG NEUTROPHIL 73.0 % Normal [facility] Comment on above: Performed By: #### 2 639-3, 2156-6, CBCA, CMP, 3040-3, 60636-3, 04066-1, 82972-4, 5643-2 ####[facility] ([id number])[address] [place] [address] 48620 TOXIC GRANULATION 1+ Abnormal NONE [facility] Comment on above: Performed By: #### 2 639-3, 2156-6, CBCA, CMP, 3040-3, 13318-0, 20974-3, 85604-8, 5643-2 ####[facility] ([id number])[address] [place] [address] 77509 WBC (Bld) [#/Vol] 14.0 10*3/uL High 4.0-11.0 [facility] Comment on above: Performed By: #### 2 639-3, 2157-6, CBCA, CMP, 3040-3, 18134-0, 28170-7, 38681-8, 5643-2 ####[facility] ([id number])[address] [place] [address] 33535 CK [Catalytic activity/Vol]o n 08-23-2024 CPK 48 U/L Normal 24-170 [facility] Comment on above: Performed By: #### 2 639-3, 2156-6, CBCA, CMP, 3040-3, 02619-9, 28599-7, 67778-4, 5643-2 ####[facility] ([id number])[address] [place] [address] 24742 COMPREHENSIVE METABOLIC PANE [facility] 08-23-2024 Albumin [Mass/Vol] 3.8 g/dL Normal 3.2-5.3 [facility] Comment on above: Performed By: #### 2 639-3, 2156-6, CBCA, CMP, 3040-3, 50524-8, 71918-2, 04196-6, 5643-2 ####[facility] ([id number])[address] [place] [address] 29674 ALP [Catalytic activity/Vol] 88 U/L Normal 39-130 [facility] Comment on above: Performed By: #### 2 639-3, 2156-6, CBCA, CMP, 3040-3, 80824-9, 30525-4, 65034-6, 5643-2 ####[facility] ([id number])[address] [place] [address] 94484 ALT [Catalytic activity/Vol] 19 U/L Normal 0-31 [facility] Comment on above: Performed By: #### 2 639-3, 2157-6, CBCA, CMP, 3040-3, 90866-6, 11754-8, 98123-3, 5643-2 ####[facility] ([id number])[address] [place] [address] 80529 Anion gap [Moles/Vol] 11 mmol/L Normal 5-15 [facility] Comment on above: Performed By: #### 2 639-3, 2156-6, CBCA, CMP, 3040-3, 36425-1, 00132-4, 07802-2, 5643-2 ####[facility] ([id number])[address] [place] [address] 76254 AST [Catalytic activity/Vol] 20 U/L Normal 0-41 [facility] Comment on above: Performed By: #### 2 639-3, 2156-6, CBCA, CMP, 3040-3, 88597-1, 76720-8, 47372-4, 5643-2 ####[facility] ([id number])[address] [place] [address] 06503 Bilirubin [Mass/Vol] 0.6 mg/dL Normal 0.3-1.2 [facility] Comment on above: Performed By: #### 2 639-3, 6, CBCA, CMP, 3040-3, 96040-6, 16358-1, 54475-0, 5643-2 ####[facility] ([id number])[address] [place] [address] 63004 Calcium [Mass/Vol] 8.8 mg/dL Normal 8.5-10.5 [facility] Comment on above: Performed By: #### 2 639-3, 2156-6, CBCA, CMP, 3040-3, 33074-2, 87715-1, 41000-8, 5643-2 ####[facility] ([id number])[address] [place] [address] 78500 Chloride [Moles/Vol] 102 mmol/L Normal 98-109 [facility] Comment on above: Performed By: #### 2 639-3, 2156-6, CBCA, CMP, 3040-3, 39942-2, 71728-0, 49900-5, 5643-2 ####[facility] ([id number])[address] [place] [address] 34442 CO2 [Moles/Vol] 25 mmol/L Normal 22-32 [facility] Comment on above: Performed By: #### 2 639-3, 6, CBCA, CMP, 3040-3, 39197-4, 06011-8, 71967-0, 5643-2 ####[facility] ([id number])[address] [place] [address] 49160 Creatinine [Mass/Vol] 1.29 mg/dL High 0.40-1.00 [facility] Comment on above: Result Comment: METH OD TRACEABLE TO IDMS STANDARD Performed By: #### 2 639-3, 6, CBCA, CMP, 3040-3, 16165-8, 04259-9, 66960-5, 5643-2 ####[facility] ([id number])[address] [place] [address] 18584 GFR/1.73 sq M.predicted among non-blacks MDRD (S/P/Bld) [Vol rate/Area] 42 mL/min/{1.73_m2} Low >59 [facility] Comment on above: Result Comment: Repo rted eGFR is based on theCKD-EPI 2020 equation that doesnot use a race coefficient. Performed By: #### 2 639-3, 6, CBCA, CMP, 3040-3, 25666-3, 04629-5, 57969-8, 5643-2 ####[facility] ([id number])[address] [place] [address] 08700 Glucose [Mass/Vol] 79 mg/dL Normal 65-99 [facility] Comment on above: Performed By: #### 2 639-3, 2156-6, CBCA, CMP, 3040-3, 20454-7, 07881-0, 29616-7, 5643-2 ####[facility] ([id number])[address] [place] [address] 49318 Potassium [Moles/Vol] 3.3 mmol/L Low 3.5-5.0 [facility] Comment on above: Performed By: #### 2 639-3, 2156-6, CBCA, CMP, 3040-3, 66079-0, 73945-9, 33792-7, 5643-2 ####[facility] ([id number])[address] [place] [address] 40418 Protein [Mass/Vol] 7.5 g/dL Normal 6.0-8.0 [facility] Comment on above: Performed By: #### 2 639-3, 6, CBCA, CMP, 3040-3, 20614-3, 69098-5, 76195-8, 5643-2 ####[facility] ([id number])[address] [place] [address] 56233 Sodium [Moles/Vol] 138 mmol/L Normal 134-146 [facility] Comment on above: Performed By: #### 2 639-3, 6, CBCA, CMP, 3040-3, 27313-7, 77128-0, 94786-7, 5643-2 ####[facility] ([id number])[address] [place] [address] 92099 Urea nitrogen [Mass/Vol] 22 mg/dL Normal 5-27 [facility] Comment on above: Performed By: #### 2 639-3, 2156-6, CBCA, CMP, 3040-3, 85553-6, 86258-8, 17670-4, 5643-2 ####[facility] ([id number])[address] [place] [address]RAIN WO CONTon CT BRAIN WO CONT Normal [facility] ETHANOLon 08-23-2024 Ethanol [Mass/Vol] mg/dL Normal 0.00-0.08 [facility] Comment on above: Result Comment: This report is intended for use in clinicalmonitoring or management of patients. Performed By: #### 2 639-3, 2157-6, CBCA, CMP, 3040-3, 74826-0, 88140-8, 50966-3, 5643-2 ####[facility] ([id number])[address] [place] [address] 63420 Glucose Glucometer (BldC) [M ass/Vol]on 08-23-2024 Glucose [Mass/Vol] 267 mg/dL High 65-99 [facility] Glucose [Mass/Vol] 279 mg/dL High 65-99 [facility] Glucose [Mass/Vol] 298 mg/dL High 65-99 [facility] Glucose [Mass/Vol] 235 mg/dL High 65-99 [facility] Glucose [Mass/Vol] 141 mg/dL High 65-99 [facility] Glucose [Mass/Vol] 101 mg/dL High 65-99 [facility] Glucose [Mass/Vol] 83 mg/dL Normal 65-99 [facility] Glucose [Mass/Vol] 93 mg/dL Normal 65-99 [facility] Glucose [Mass/Vol] 144 mg/dL High 65-99 [facility] Glucose [Mass/Vol] 61 mg/dL Low 65-99 [facility] Glucose [Mass/Vol] 82 mg/dL Normal 65-99 [facility] Glucose [Mass/Vol] 176 mg/dL High 65-99 [facility] Glucose [Mass/Vol] 85 mg/dL Normal 65-99 [facility] Glucose [Mass/Vol] 91 mg/dL Normal 65-99 [facility] Glucose [Mass/Vol] 109 mg/dL High 65-99 [facility] Glucose [Mass/Vol] 55 mg/dL Low 65-99 [facility] LIPASEon 08-23-2024 Lipase [Catalytic activity/Vol] 30 U/L Normal 17-40 [facility] Comment on above: Performed By: #### 2 639-3, 2156-6, CBCA, CMP, 3040-3, 05586-2, 91594-2, 77328-8, 5643-2 ####[facility] ([id number])[address] [place] [address] 20941 Lactate (P obed) [Moles/Vol]o n 08-23-2024 Lactate [Moles/Vol] 2.0 mmol/L Normal 0.4-2.0 [facility] Comment on above: Performed By: #### 3 2133-1 ####[facility] ([id number])[address] [place] [address] 70678 LACTATE W/REFLEX 2.9 mmol/L High 0.4-2.0 [facility] Comment on above: Performed By: #### 3 2133-1 ####[facility] ([id number])[address] [place] [address] 63224 MAGNESIUMon 08-23-2024 Magnesium [Mass/Vol] 2.7 mg/dL High 1.8-2.6 [facility] Comment on above: Performed By: #### 1 9123-9, THYR ####[facility] ([id number])[address] [place] [address] 97346 Magnesium [Mass/Vol] 1.6 mg/dL Low 1.8-2.6 [facility] Comment on above: Performed By: #### 2 639-3, 2156-6, CBCA, CMP, 3040-3, 16849-3, 13331-0, 21723-3, 5643-2 ####[facility] ([id number])[address] [place] [address] 94746 Myoglobin [Mass/Vol]on 08-23 SERUM MYOGLOBIN 97.6 ng/mL High 14.3-65.8 [facility] Comment on above: Performed By: #### 2 639-3, 2157-6, CBCA, CMP, 3040-3, 34825-3, 46491-4, 11904-6, 5643-2 ####[facility] ([id number])[address] [place] [address] 04943 Natriuretic peptide B [Mass/ Vol]on 08-23-2024 Natriuretic peptide B (Bld) [Mass/Vol] 66 pg/mL Normal <100.0 [facility] Comment on above: Performed By: #### 2 639-3, 2157-6, CBCA, CMP, 3040-3, 40143-9, 39845-9, 15125-0, 5643-2 ####[facility] ([id number])[address] [place] [address] 91186 POTASSIUMon 08-23-2024 Potassium [Moles/Vol] 5.4 mmol/L High 3.5-5.0 [facility] Comment on above: Performed By: #### 2 823-3 ####[facility] ([id number])[address] [place] [address] 28848 PROTIME AND INRon 08-23-2024 INR Coag (PPP) [Relative time] 1.0 {INR} Normal 0.8-1.1 [facility] Comment on above: Performed By: #### P INR, 42677-5 ####[facility] ([id number])[address] [place] [address] 12011 PT Coag (PPP) [Time] 11.7 s Normal 9.8-13.2 [facility] Comment on above: Result Comment: NEW REFERENCE RANGE Performed By: #### P INR, 48887-1 ####[facility] ([id number])[address] [place] [address] 15862 THYROID PROFILEon 08-23-2024 Free T4 [Mass/Vol] 1.05 ng/dL Normal 0.61-1.60 [facility] Comment on above: Performed By: #### 1 9123-9, THYR ####[facility] ([id number])[address] [place] [address] 65322 TSH 0.38 uIU/mL Low 0.49-4.67 [facility] Comment on above: Performed By: #### 1 9123-9, THYR ####[facility] ([id number])[address] [place] [address] 78000 Troponin I.cardiac High sens itivity method [Mass/Vol]on 08-23-2024 3 HOUR TROP I, HIGH SENSITIVITY 112 ng/L High <16 [facility] Comment on above: Result Comment: Elev ations of hs-Troponin may be due to causesother than myocardial ischemia.Recommend serial hs-Troponin testing be performed.For the initial evaluation and management of chestpain patients, refer to the algorithms linked below.Emergency Patient:[email or web address] 15&uh=acaeaInpatient:[email or web address]&d [email or web address]&h=44014&uh=acaea Performed By: #### 8 9579-7 ####[facility] ([id number])[address] [place] [address] 90608 1 HOUR TROP I, HIGH SENSITIVITY 72 ng/L High <16 [facility] Comment on above: Result Comment: Elev ations of hs-Troponin may be due to causesother than myocardial ischemia.Recommend serial hs-Troponin testing be performed.For the initial evaluation and management of chestpain patients, refer to the algorithms linked below.Emergency Patient:[email or web address] 15&uh=acaeaInpatient:[email or web address] [email or web address]&n=07338&uh=acaea Performed By: #### 8 9579-7 ####[facility] ([id number])[address] [place] [address] 53575 TROPONIN I, HIGH SENSITIVITY 45 ng/L High <16 [facility] Comment on above: Result Comment: Elev ations of hs-Troponin may be due to causesother than myocardial ischemia.Recommend serial hs-Troponin testing be performed.For the initial evaluation and management of chestpain patients, refer to the algorithms linked below.Emergency Patient:[email or web address]&[email or web address] 15&uh=acaeaInpatient:[email or web address] [email or web address]&s=97053&uh=acaea Performed By: #### 2 639-3, 2157-6, CBCA, CMP, 3040-3, 02977-6, 84554-9, 89038-2, 5643-2 ####[facility] ([id number])[address] [place] [address] 24820 URINE CULTUREon 08-23-2024 Bacteria identified Cx Nom (U) CULTURE RESULTS NO GROWTH AT <1000 CFU/mL Normal [facility] Comment on above: Performed By: #### 6 30-4 ####[facility] ([id number])[address], [address], [place] [address] URN MACROSCOPIC NURon 2023 BILIRUBIN MARYJO Negative Normal NEG [facility] Comment on above: Performed By: #### N UM ####[facility] ([id number])[address] [place] [address], [place] [address] BLOOD/HGB MARYJO Negative Normal NEG [facility] Comment on above: Performed By: #### N UM ####[facility] ([id number])[address] [place] [address], [place] [address] GLUCOSE MARYJO 100 mg/dL Abnormal NEG [facility] Comment on above: Performed By: #### N UM ####[facility] ([id number])[address] [place] [address], [place] [address] KETONES MARYJO Negative Normal NEG [facility] Comment on above: Performed By: #### N UM ####[facility] ([id number])[address] [place] [address], [place] [address] LEUKOCYTE ESTERASE MARYJO Negative Normal NEG [facility] Comment on above: Performed By: #### N UM ####[facility] ([id number])[address] [place] [address], [place] [address] NITRITE MARYJO Negative Normal NEG [facility] Comment on above: Performed By: #### N UM ####[facility] ([id number])[address] [place] [address], [place] [address] PH MARYJO 6.5 Normal 5.0-8.5 [facility] Comment on above: Performed By: #### N UM ####[facility] ([id number])[address] [place] [address], [place] [address] PROTEIN MARJYO Negative Normal NEG [facility] Comment on above: Performed By: #### N UM ####[facility] ([id number])[address] [place] [address], [place] [address] SPECIFIC GRAVITY MARYJO 1.015 Normal 1.003-1.03 5 [facility] Comment on above: Performed By: #### N UM ####[facility] ([id number])[address] [place] [address]70[address] UROBILINOGEN MARYJO 0.2 eu/dL Normal <1.1 [facility] Comment on above: Performed By: #### N UM ####[facility] ([id number])[address] [place] [address] 60040 XR CHEST 1 VWon 08-23-2024 XR CHEST 1 VW Normal [facility] aPTT Coag (PPP) [Time]on aPTT Coag (Bld) [Time] 24 s Low 26-37 [facility] Comment on above: Result Comment: NEW REFERENCE RANGE Performed By: #### P INR, 09539-9 ####[facility] ([id number])[address] [place] [address] 78812 CBC AND AUTO DIFFon 08-14-20 ABSOLUTE BASOPHIL 0.0 X10E9/L Normal 0.0-0.2 [facility] Comment on above: Performed By: #### 1 9123-9, CBCA, CMP, LIVR ####[facility] ([id number])[address] [place] [address] 27917 ABSOLUTE NEUTROPHIL 3.4 X10E9/L Normal 1.5-6.6 [facility] Comment on above: Performed By: #### 1 9123-9, CBCA, CMP, LIVR ####[facility] ([id number])[address] [place] [address] 12362 Basophils/100 WBC (Bld) 0.2 % Normal [facility] Comment on above: Performed By: #### 1 9123-9, CBCA, CMP, LIVR ####[facility] ([id number])[address] [place] [address] 31301 Eosinophils (Bld) [#/Vol] 0.0 10*3/uL Normal 0.0-0.4 [facility] Comment on above: Performed By: #### 1 9123-9, CBCA, CMP, LIVR ####[facility] ([id number])[address] [place] [address] 98259 Eosinophils/100 WBC (Bld) 0.0 % Normal [facility] Comment on above: Performed By: #### 1 9123-9, CBCA, CMP, LIVR ####[facility] ([id number])[address] [place] [address] 07434 Erythrocyte distribution width (RBC) [Ratio] 15.6 % High 11.5-15.0 [facility] Comment on above: Performed By: #### 1 9123-9, CBCA, CMP, LIVR ####[facility] ([id number])[address] [place] [address] 47469 Hematocrit (Bld) [Volume fraction] 30.5 % Low 35-47 [facility] Comment on above: Performed By: #### 1 9123-9, CBCA, CMP, LIVR ####[facility] ([id number])[address] [place] [address] 38549 Hemoglobin (Bld) [Mass/Vol] 9.9 g/dL Low 11.7-15.5 [facility] Comment on above: Performed By: #### 1 9123-9, CBCA, CMP, LIVR ####[facility] ([id number])[address] [place] [address] 91634 Lymphocytes (Bld) [#/Vol] 1.9 10*3/uL Normal 1.0-3.5 [facility] Comment on above: Performed By: #### 1 9123-9, CBCA, CMP, LIVR ####[facility] ([id number])[address] [place] [address] 43494 Lymphocytes/100 WBC (Bld) 29.8 % Normal [facility] Comment on above: Performed By: #### 1 9123-9, CBCA, CMP, LIVR ####[facility] ([id number])[address] [place] [address] 01269 MCH (RBC) [Entitic mass] 27.6 pg Normal 27-34 [facility] Comment on above: Performed By: #### 1 9123-9, CBCA, CMP, LIVR ####[facility] ([id number])[address] [place] [address] 88962 MCHC (RBC) [Mass/Vol] 32.5 g/dL Normal 32-36 [facility] Comment on above: Performed By: #### 1 9123-9, CBCA, CMP, LIVR ####[facility] ([id number])[address] [place] [address] 96472 MCV (RBC) [Entitic vol] 85 fL Normal 80-100 [facility] Comment on above: Performed By: #### 1 9123-9, CBCA, CMP, LIVR ####[facility] ([id number])[address] [place] [address] 28721 Monocytes (Bld) [#/Vol] 1.0 10*3/uL High 0-0.9 [facility] Comment on above: Performed By: #### 1 9123-9, CBCA, CMP, LIVR ####[facility] ([id number])[address] [place] [address] 27628 Monocytes/100 WBC (Bld) 15.5 % Normal [facility] Comment on above: Performed By: #### 1 9123-9, CBCA, CMP, LIVR ####[facility] ([id number])[address] [place] [address] 09765 Neutrophils/100 WBC (Bld) 54.5 % Normal [facility] Comment on above: Performed By: #### 1 9123-9, CBCA, CMP, LIVR ####[facility] ([id number])[address] [place] [address] 10362 Platelet mean volume (Bld) [Entitic vol] 8.3 fL Normal 7-12 [facility] Comment on above: Performed By: #### 1 9123-9, CBCA, CMP, LIVR ####[facility] ([id number])[address] [place] [address] 46228 Platelets (Bld) [#/Vol] 228 10*3/uL Normal 150-450 [facility] Comment on above: Performed By: #### 1 9123-9, CBCA, CMP, LIVR ####[facility] ([id number])[address] [place] [address] 58222 RBC COUNT 3.60 X10E12/L Low 3.80-5.20 [facility] Comment on above: Performed By: #### 1 9123-9, CBCA, CMP, LIVR ####[facility] ([id number])[address] [place] [address] 98420 WBC (Bld) [#/Vol] 6.3 10*3/uL Normal 4.0-11.0 [facility] Comment on above: Performed By: #### 1 9123-9, CBCA, CMP, LIVR ####[facility] ([id number])[address] [place] [address] 51824 COMPREHENSIVE METABOLIC PANE [facility] 08-14-2024 Albumin [Mass/Vol] 3.4 g/dL Normal 3.2-5.3 [facility] Comment on above: Performed By: #### 1 9123-9, CBCA, CMP, LIVR ####[facility] ([id number])[address] [place] [address] 22658 ALP [Catalytic activity/Vol] 70 U/L Normal 39-130 [facility] Comment on above: Performed By: #### 1 9123-9, CBCA, CMP, LIVR ####[facility] ([id number])[address] [place] [address] 07869 ALT [Catalytic activity/Vol] 14 U/L Normal 0-31 [facility] Comment on above: Performed By: #### 1 9123-9, CBCA, CMP, LIVR ####[facility] ([id number])[address] [place] [address] 08445 Anion gap [Moles/Vol] 10 mmol/L Normal 5-15 [facility] Comment on above: Performed By: #### 1 9123-9, CBCA, CMP, LIVR ####[facility] ([id number])[address] [place] [address] 00520 AST [Catalytic activity/Vol] 19 U/L Normal 0-41 [facility] Comment on above: Performed By: #### 1 9123-9, CBCA, CMP, LIVR ####[facility] ([id number])[address] [place] [address] 30922 Bilirubin [Mass/Vol] 0.4 mg/dL Normal 0.3-1.2 [facility] Comment on above: Performed By: #### 1 9123-9, CBCA, CMP, LIVR ####[facility] ([id number])[address] [place] [address] 93758 Calcium [Mass/Vol] 9.0 mg/dL Normal 8.5-10.5 [facility] Comment on above: Performed By: #### 1 9123-9, CBCA, CMP, LIVR ####[facility] ([id number])[address] [place] [address] 33717 Chloride [Moles/Vol] 103 mmol/L Normal 98-109 [facility] Comment on above: Performed By: #### 1 9123-9, CBCA, CMP, LIVR ####[facility] ([id number])[address] [place] [address] [place] [address] CO2 [Moles/Vol] 22 mmol/L Normal 22-32 [facility] Comment on above: Performed By: #### 1 9123-9, CBCA, CMP, LIVR ####[facility] ([id number])[address] [place] [address] 02428 Creatinine [Mass/Vol] 1.39 mg/dL High 0.40-1.00 [facility] Comment on above: Result Comment: METH OD TRACEABLE TO IDMS STANDARD Performed By: #### 1 9123-9, CBCA, CMP, LIVR ####[facility] ([id number])[address] [place] [address] 07614 GFR/1.73 sq M.predicted among non-blacks MDRD (S/P/Bld) [Vol rate/Area] 39 mL/min/{1.73_m2} Low >59 [facility] Comment on above: Result Comment: Repo rted eGFR is based on theCKD-EPI 2020 equation that doesnot use a race coefficient. Performed By: #### 1 9123-9, CBCA, CMP, LIVR ####[facility] ([id number])[address] [place] [address] 51534 Glucose [Mass/Vol] 102 mg/dL High 65-99 [facility] Comment on above: Performed By: #### 1 9123-9, CBCA, CMP, LIVR ####[facility] ([id number])[address] [place] [address] 29347 Potassium [Moles/Vol] 4.3 mmol/L Normal 3.5-5.0 [facility] Comment on above: Performed By: #### 1 9123-9, CBCA, CMP, LIVR ####[facility] ([id number])[address] [place] [address] 05550 Protein [Mass/Vol] 7.0 g/dL Normal 6.0-8.0 [facility] Comment on above: Performed By: #### 1 9123-9, CBCA, CMP, LIVR ####[facility] ([id number])[address] [place] [address] 19348 Sodium [Moles/Vol] 135 mmol/L Normal 134-146 [facility] Comment on above: Performed By: #### 1 9123-9, CBCA, CMP, LIVR ####[facility] ([id number])[address] [place] [address] 75470 Urea nitrogen [Mass/Vol] 40 mg/dL High 5-27 [facility] Comment on above: Performed By: #### 1 9123-9, CBCA, CMP, LIVR ####[facility] ([id number])[address] [place] [address] 21669 Glucose Glucometer (BldC) [M ass/Vol]on 08-14-2024 Glucose [Mass/Vol] 372 mg/dL High 65-99 [facility] Glucose [Mass/Vol] 204 mg/dL High 65-99 [facility] LIVER PANELon 08-14-2024 Bilirubin.indirec t [Mass/Vol] mg/dL Normal 0.0-0.4 [facility] Comment on above: Performed By: #### 1 9123-9, CBCA, CMP, LIVR ####[facility] ([id number])[address] [place] [address] 70402 MAGNESIUMon 08-14-2024 Magnesium [Mass/Vol] 1.8 mg/dL Normal 1.8-2.6 [facility] Comment on above: Performed By: #### 1 9123-9, CBCA, CMP, LIVR ####[facility] ([id number])[address] [place] [address] 08797 CBC AND AUTO DIFFon 08-13-20 ABSOLUTE BASOPHIL 0.0 X10E9/L Normal 0.0-0.2 [facility] Comment on above: Performed By: #### 1 9123-9, CMP, LIVR, CBCA ####[facility] ([id number])[address] [place] [address] 85053 ABSOLUTE NEUTROPHIL 4.4 X10E9/L Normal 1.5-6.6 [facility] Comment on above: Performed By: #### 1 9123-9, CMP, LIVR, CBCA ####[facility] ([id number])[address] [place] [address] 91561 Basophils/100 WBC (Bld) 0.2 % Normal [facility] Comment on above: Performed By: #### 1 9123-9, CMP, LIVR, CBCA ####[facility] ([id number])[address] [place] [address] 39922 Eosinophils (Bld) [#/Vol] 0.0 10*3/uL Normal 0.0-0.4 [facility] Comment on above: Performed By: #### 1 9123-9, CMP, LIVR, CBCA ####[facility] ([id number])[address] [place] [address] 67531 Eosinophils/100 WBC (Bld) 0.2 % Normal [facility] Comment on above: Performed By: #### 1 9123-9, CMP, LIVR, CBCA ####[facility] ([id number])[address] [place] [address] 42982 Erythrocyte distribution width (RBC) [Ratio] 16.1 % High 11.5-15.0 [facility] Comment on above: Performed By: #### 1 9123-9, CMP, LIVR, CBCA ####[facility] ([id number])[address] [place] [address] 70427 Hematocrit (Bld) [Volume fraction] 28.2 % Low 35-47 [facility] Comment on above: Performed By: #### 1 9123-9, CMP, LIVR, CBCA ####[facility] ([id number])[address] [place] [address] 17660 Hemoglobin (Bld) [Mass/Vol] 9.1 g/dL Low 11.7-15.5 [facility] Comment on above: Performed By: #### 1 91-9, CMP, LIVR, CBCA ####[facility] ([id number])[address] [place] [address] 27566 Lymphocytes (Bld) [#/Vol] 1.1 10*3/uL Normal 1.0-3.5 [facility] Comment on above: Performed By: #### 1 9123-9, CMP, LIVR, CBCA ####[facility] ([id number])[address] [place] [address] 89180 Lymphocytes/100 WBC (Bld) 17.4 % Normal [facility] Comment on above: Performed By: #### 1 9123-9, CMP, LIVR, CBCA ####[facility] ([id number])[address] [place] [address] 36939 MCH (RBC) [Entitic mass] 27.5 pg Normal 27-34 [facility] Comment on above: Performed By: #### 1 9123-9, CMP, LIVR, CBCA ####[facility] ([id number])[address] [place] [address] 55726 MCHC (RBC) [Mass/Vol] 32.2 g/dL Normal 32-36 [facility] Comment on above: Performed By: #### 1 9123-9, CMP, LIVR, CBCA ####[facility] ([id number])[address] [place] [address] 49516 MCV (RBC) [Entitic vol] 85 fL Normal 80-100 [facility] Comment on above: Performed By: #### 1 9123-9, CMP, LIVR, CBCA ####[facility] ([id number])[address] [place] [address] 08078 Monocytes (Bld) [#/Vol] 0.9 10*3/uL Normal 0-0.9 [facility] Comment on above: Performed By: #### 1 9123-9, CMP, LIVR, CBCA ####[facility] ([id number])[address] [place] [address] 01530 Monocytes/100 WBC (Bld) 13.8 % Normal [facility] Comment on above: Performed By: #### 1 9123-9, CMP, LIVR, CBCA ####[facility] ([id number])[address] [place] [address] 19828 Neutrophils/100 WBC (Bld) 68.4 % Normal [facility] Comment on above: Performed By: #### 1 9123-9, CMP, LIVR, CBCA ####[facility] ([id number])[address] [place] [address] 44189 Platelet mean volume (Bld) [Entitic vol] 8.6 fL Normal 7-12 [facility] Comment on above: Performed By: #### 1 9123-9, CMP, LIVR, CBCA ####[facility] ([id number])[address] [place] [address] 52229 Platelets (Bld) [#/Vol] 207 10*3/uL Normal 150-450 [facility] Comment on above: Performed By: #### 1 9123-9, CMP, LIVR, CBCA ####[facility] ([id number])[address] [place] [address] 99562 RBC COUNT 3.30 X10E12/L Low 3.80-5.20 [facility] Comment on above: Performed By: #### 1 9123-9, CMP, LIVR, CBCA ####[facility] ([id number])[address] [place] [address] 08252 WBC (Bld) [#/Vol] 6.5 10*3/uL Normal 4.0-11.0 [facility] Comment on above: Performed By: #### 1 9123-9, CMP, LIVR, CBCA ####[facility] ([id number])[address] [place] [address] 61985 COMPREHENSIVE METABOLIC PANE [facility] 08-13-2024 Albumin [Mass/Vol] 3.4 g/dL Normal 3.2-5.3 [facility] Comment on above: Performed By: #### 1 9123-9, CMP, LIVR, CBCA ####[facility] ([id number])[address] [place] [address] 71544 ALP [Catalytic activity/Vol] 74 U/L Normal 39-130 [facility] Comment on above: Performed By: #### 1 9123-9, CMP, LIVR, CBCA ####[facility] ([id number])[address] [place] [address] 42334 ALT [Catalytic activity/Vol] 13 U/L Normal 0-31 [facility] Comment on above: Performed By: #### 1 9123-9, CMP, LIVR, CBCA ####[facility] ([id number])[address] [place] [address] 45478 Anion gap [Moles/Vol] 8 mmol/L Normal 5-15 [facility] Comment on above: Performed By: #### 1 9123-9, CMP, LIVR, CBCA ####[facility] ([id number])[address] [place] [address] 82493 AST [Catalytic activity/Vol] 17 U/L Normal 0-41 [facility] Comment on above: Performed By: #### 1 9123-9, CMP, LIVR, CBCA ####[facility] ([id number])[address] [place] [address] 04476 Bilirubin [Mass/Vol] 0.3 mg/dL Normal 0.3-1.2 [facility] Comment on above: Performed By: #### 1 9123-9, CMP, LIVR, CBCA ####[facility] ([id number])[address] [place] [address] 69312 Calcium [Mass/Vol] 8.9 mg/dL Normal 8.5-10.5 [facility] Comment on above: Performed By: #### 1 9123-9, CMP, LIVR, CBCA ####[facility] ([id number])[address] [place] [address] 37724 Chloride [Moles/Vol] 101 mmol/L Normal 98-109 [facility] Comment on above: Performed By: #### 1 9123-9, CMP, LIVR, CBCA ####[facility] ([id number])[address] [place] [address] 97763 CO2 [Moles/Vol] 27 mmol/L Normal 22-32 [facility] Comment on above: Performed By: #### 1 9123-9, CMP, LIVR, CBCA ####[facility] ([id number])[address] [place] [address] 68890 Creatinine [Mass/Vol] 1.43 mg/dL High 0.40-1.00 [facility] Comment on above: Result Comment: METH OD TRACEABLE TO IDMS STANDARD Performed By: #### 1 9123-9, CMP, LIVR, CBCA ####[facility] ([id number])[address] [place] [address] 46940 GFR/1.73 sq M.predicted among non-blacks MDRD (S/P/Bld) [Vol rate/Area] 38 mL/min/{1.73_m2} Low >59 [facility] Comment on above: Result Comment: Repo rted eGFR is based on theCKD-EPI 2020 equation that doesnot use a race coefficient. Performed By: #### 1 9123-9, CMP, LIVR, CBCA ####[facility] ([id number])[address] [place] [address] 36555 Glucose [Mass/Vol] 189 mg/dL High 65-99 [facility] Comment on above: Performed By: #### 1 9123-9, CMP, LIVR, CBCA ####[facility] ([id number])[address] [place] [address] 11042 Potassium [Moles/Vol] 4.8 mmol/L Normal 3.5-5.0 [facility] Comment on above: Performed By: #### 1 9123-9, CMP, LIVR, CBCA ####[facility] ([id number])[address] [place] [address] 31484 Protein [Mass/Vol] 6.9 g/dL Normal 6.0-8.0 [facility] Comment on above: Performed By: #### 1 9123-9, CMP, LIVR, CBCA ####[facility] ([id number])[address] [place] [address] 43313 Sodium [Moles/Vol] 136 mmol/L Normal 134-146 [facility] Comment on above: Performed By: #### 1 9123-9, CMP, LIVR, CBCA ####[facility] ([id number])[address] [place] [address] 47279 Urea nitrogen [Mass/Vol] 33 mg/dL High 5-27 [facility] Comment on above: Performed By: #### 1 9123-9, CMP, LIVR, CBCA ####[facility] ([id number])[address] [place] [address] 86134 Glucose Glucometer (BldC) [M ass/Vol]on 08-13-2024 Glucose [Mass/Vol] 233 mg/dL High 65-99 [facility] Glucose [Mass/Vol] 261 mg/dL High 65-99 [facility] Glucose [Mass/Vol] 235 mg/dL High 65-99 [facility] Glucose [Mass/Vol] 136 mg/dL High 65-99 [facility] LIVER PANELon 08-13-2024 Bilirubin.direct [Mass/Vol] 0.1 mg/dL Normal 0.0-0.4 [facility] Comment on above: Performed By: #### 1 9123-9, CMP, LIVR, CBCA ####[facility] ([id number])[address] [place] [address] 66559 MAGNESIUMon 08-13-2024 Magnesium [Mass/Vol] 1.9 mg/dL Normal 1.8-2.6 [facility] Comment on above: Performed By: #### 1 9123-9, CMP, LIVR, CBCA ####[facility] ([id number])[address] [place] [address] 11444 BLOOD CULTUREon 08-12-2024 Bacteria identified Aer cx Nom (Bld) SPECIMEN NOTES l hand CULTURE RESULTS NO GROWTH 5 DAYS Normal [facility] Comment on above: Performed By: #### 1 7928-3 ####[facility] ([id number])[address] [place] [address] 92877 Bacteria identified Aer cx Nom (Bld) SPECIMEN NOTES r hand CULTURE RESULTS NO GROWTH 5 DAYS Normal [facility] Comment on above: Performed By: #### 1 7928-3 ####[facility] ([id number])[address] [place] [address] 29784 CBC AND AUTO DIFFon 09-28-20 24 ABSOLUTE BASOPHIL 0.0 X10E9/L Normal 0.0-0.2 [facility] Comment on above: Performed By: #### 7 5241-0, CMP, LIVR, 21752-5, CBCA ####[facility] ([id number])[address] [place] [address] 21277 ABSOLUTE NEUTROPHIL 5.8 X10E9/L Normal 1.5-6.6 [facility] Comment on above: Performed By: #### 7 5241-0, CMP, LIVR, 94346-7, CBCA ####[facility] ([id number])[address] [place] [address] 58243 Basophils/100 WBC (Bld) 0.5 % Normal [facility] Comment on above: Performed By: #### 7 5241-0, CMP, LIVR, 81869-1, CBCA ####[facility] ([id number])[address] [place] [address] 00751 Eosinophils (Bld) [#/Vol] 0.1 10*3/uL Normal 0.0-0.4 [facility] Comment on above: Performed By: #### 7 5241-0, CMP, LIVR, 42282-2, CBCA ####[facility] ([id number])[address] [place] [address] 21043 Eosinophils/100 WBC (Bld) 1.5 % Normal [facility] Comment on above: Performed By: #### 7 5241-0, CMP, LIVR, 05525-6, CBCA ####[facility] ([id number])[address] [place] [address] 98793 Erythrocyte distribution width (RBC) [Ratio] 16.1 % High 11.5-15.0 [facility] Comment on above: Performed By: #### 7 5241-0, CMP, LIVR, 42681-0, CBCA ####[facility] ([id number])[address] [place] [address] 70795 Hematocrit (Bld) [Volume fraction] 30.8 % Low 35-47 [facility] Comment on above: Performed By: #### 7 5241-0, CMP, LIVR, 33410-3, CBCA ####[facility] ([id number])[address] [place] [address] 23385 Hemoglobin (Bld) [Mass/Vol] 10.1 g/dL Low 11.7-15.5 [facility] Comment on above: Performed By: #### 7 5241-0, CMP, LIVR, 02617-8, CBCA ####[facility] ([id number])[address] [place] [address] 89195 Lymphocytes (Bld) [#/Vol] 0.5 10*3/uL Low 1.0-3.5 [facility] Comment on above: Performed By: #### 7 5241-0, CMP, LIVR, 06709-3, CBCA ####[facility] ([id number])[address] [place] [address] 16253 Lymphocytes/100 WBC (Bld) 7.4 % Normal [facility] Comment on above: Performed By: #### 7 5241-0, CMP, LIVR, 70956-0, CBCA ####[facility] ([id number])[address] [place] [address] 93157 MCH (RBC) [Entitic mass] 27.8 pg Normal 27-34 [facility] Comment on above: Performed By: #### 7 5241-0, CMP, LIVR, 81219-1, CBCA ####[facility] ([id number])[address] [place] [address] 68173 MCHC (RBC) [Mass/Vol] 32.7 g/dL Normal 32-36 [facility] Comment on above: Performed By: #### 7 5241-0, CMP, LIVR, 03245-9, CBCA ####[facility] ([id number])[address] [place] [address] 29187 MCV (RBC) [Entitic vol] 85 fL Normal 80-100 [facility] Comment on above: Performed By: #### 7 5241-0, CMP, LIVR, 65044-5, CBCA ####[facility] ([id number])[address] [place] [address] 60045 Monocytes (Bld) [#/Vol] 0.8 10*3/uL Normal 0-0.9 [facility] Comment on above: Performed By: #### 7 5241-0, CMP, LIVR, 16232-0, CBCA ####[facility] ([id number])[address] [place] [address] 06360 Monocytes/100 WBC (Bld) 11.4 % Normal [facility] Comment on above: Performed By: #### 7 5241-0, CMP, LIVR, 45983-1, CBCA ####[facility] ([id number])[address] [place] [address] 46481 Neutrophils/100 WBC (Bld) 79.2 % Normal [facility] Comment on above: Performed By: #### 7 5241-0, CMP, LIVR, 81277-1, CBCA ####[facility] ([id number])[address] [place] [address] 50910 Platelet mean volume (Bld) [Entitic vol] 8.2 fL Normal 7-12 [facility] Comment on above: Performed By: #### 7 5241-0, CMP, LIVR, 57805-0, CBCA ####[facility] ([id number])[address] [place] [address] 01278 Platelets (Bld) [#/Vol] 260 10*3/uL Normal 150-450 [facility] Comment on above: Performed By: #### 7 5241-0, CMP, LIVR, 80914-8, CBCA ####[facility] ([id number])[address] [place] [address] 60929 RBC COUNT 3.62 X10E12/L Low 3.80-5.20 [facility] Comment on above: Performed By: #### 7 5241-0, CMP, LIVR, 82144-5, CBCA ####[facility] ([id number])[address] [place] [address] 95707 WBC (Bld) [#/Vol] 7.3 10*3/uL Normal 4.0-11.0 [facility] Comment on above: Performed By: #### 7 5241-0, CMP, LIVR, 20529-8, CBCA ####[facility] ([id number])[address] [place] [address] 87130 COMPREHENSIVE METABOLIC PANE [facility] 08-12-2024 Albumin [Mass/Vol] 4.1 g/dL Normal 3.2-5.3 [facility] Comment on above: Performed By: #### 7 5241-0, CMP, LIVR, 04869-8, CBCA ####[facility] ([id number])[address] [place] [address] 37959 ALP [Catalytic activity/Vol] 87 U/L Normal 39-130 [facility] Comment on above: Performed By: #### 7 5241-0, CMP, LIVR, 22455-4, CBCA ####[facility] ([id number])[address] [place] [address] 80601 ALT [Catalytic activity/Vol] 13 U/L Normal 0-31 [facility] Comment on above: Performed By: #### 7 5241-0, CMP, LIVR, 72409-8, CBCA ####[facility] ([id number])[address] [place] [address] [place] [address] Anion gap [Moles/Vol] 8 mmol/L Normal 5-15 [facility] Comment on above: Performed By: #### 7 5241-0, CMP, LIVR, 55944-9, CBCA ####[facility] ([id number])[address] [place] [address] 02137 AST [Catalytic activity/Vol] 17 U/L Normal 0-41 [facility] Comment on above: Performed By: #### 7 5241-0, CMP, LIVR, 98267-3, CBCA ####[facility] ([id number])[address] [place] [address] 42058 Bilirubin [Mass/Vol] 0.4 mg/dL Normal 0.3-1.2 [facility] Comment on above: Performed By: #### 7 5241-0, CMP, LIVR, 57036-2, CBCA ####[facility] ([id number])[address] [place] [address] 04436 Calcium [Mass/Vol] 9.0 mg/dL Normal 8.5-10.5 [facility] Comment on above: Performed By: #### 7 5241-0, CMP, LIVR, 48357-4, CBCA ####[facility] ([id number])[address] [place] [address] [place] [address] Chloride [Moles/Vol] 101 mmol/L Normal 98-109 [facility] Comment on above: Performed By: #### 7 5241-0, CMP, LIVR, 31505-8, CBCA ####[facility] ([id number])[address] [place] [address] [place] [address] CO2 [Moles/Vol] 27 mmol/L Normal 22-32 [facility] Comment on above: Performed By: #### 7 5241-0, CMP, LIVR, 68402-1, CBCA ####[facility] ([id number])[address] [place] [address] 56009 Creatinine [Mass/Vol] 1.48 mg/dL High 0.40-1.00 [facility] Comment on above: Result Comment: METH OD TRACEABLE TO IDMS STANDARD Performed By: #### 7 5241-0, CMP, LIVR, 28161-0, CBCA ####[facility] ([id number])[address] [place] [address] 01880 GFR/1.73 sq M.predicted among non-blacks MDRD (S/P/Bld) [Vol rate/Area] 36 mL/min/{1.73_m2} Low >59 [facility] Comment on above: Result Comment: Repo rted eGFR is based on theCKD-EPI 2020 equation that doesnot use a race coefficient. Performed By: #### 7 5241-0, CMP, LIVR, 05664-5, CBCA ####[facility] ([id number])[address] [place] [address] 92808 Glucose [Mass/Vol] 271 mg/dL High 65-99 [facility] Comment on above: Performed By: #### 7 5241-0, CMP, LIVR, 33413-3, CBCA ####[facility] ([id number])[address] [place] [address] 38199 Potassium [Moles/Vol] 4.8 mmol/L Normal 3.5-5.0 [facility] Comment on above: Performed By: #### 7 5241-0, CMP, LIVR, 92152-6, CBCA ####[facility] ([id number])[address] [place] [address] 84296 Protein [Mass/Vol] 7.6 g/dL Normal 6.0-8.0 [facility] Comment on above: Performed By: #### 7 5241-0, CMP, LIVR, 15188-6, CBCA ####[facility] ([id number])[address] [place] [address] 21830 Sodium [Moles/Vol] 136 mmol/L Normal 134-146 [facility] Comment on above: Performed By: #### 7 5241-0, CMP, LIVR, 09264-6, CBCA ####[facility] ([id number])[address] [place] [address] 92255 Urea nitrogen [Mass/Vol] 33 mg/dL High 5-27 [facility] Comment on above: Performed By: #### 7 5241-0, CMP, LIVR, 96572-9, CBCA ####[facility] ([id number])[address] [place] [address] 72155 Fibrin D-dimer DDU (PPP) [Ma ss/Vol]on 08-12-2024 D DIMER 1146 ng/mL DDU High <255 [facility] Comment on above: Result Comment: Resu lts >=255ng/mL DDU: Results may beindicative of the presence of VTE. The useof the Wells score and further diagnostictests should be considered. Elevated D-Dimerlevels can also be associated with DIC,neoplasm, , trauma and liver disease.Elevated levels of rheumatoid factor may leadto an overestimation of the D-Dimer level. Performed By: #### 7 5241-0, CMP, LIVR, 93011-5, CBCA ####[facility] ([id number])[address] [place] [address] 26412 Glucose Glucometer (BldC) [M ass/Vol]on 08-12-2024 Glucose [Mass/Vol] 313 mg/dL High 65-99 [facility] Glucose [Mass/Vol] 255 mg/dL High 65-99 [facility] Glucose [Mass/Vol] 113 mg/dL High 65-99 [facility] Glucose [Mass/Vol] 161 mg/dL High 65-99 [facility] LEGIONELLA URINE AGon 2023 L. pneumophila Ag IA Ql (U) LEGIONELLA URINE AG Negative (qualifier value) NEGATIVE FOR L.PNEUMOPHILA SEROGROUP 1 ANTIGEN Normal [facility] Comment on above: Performed By: #### 6 447-7 ####[facility] ([id number])[address] [facility], [address], [place] [address] LIVER PANELon 08-12-2024 Albumin [Mass/Vol] 3.9 g/dL Normal 3.2-5.3 [facility] Comment on above: Performed By: #### 7 5241-0, CMP, LIVR, 35526-5, CBCA ####[facility] ([id number])[address] [place] [address] 41139 Bilirubin [Mass/Vol] 0.1 mg/dL Low 0.3-1.2 [facility] Comment on above: Performed By: #### 7 5241-0, CMP, LIVR, 62532-9, CBCA ####[facility] ([id number])[address] [place] [address] 95610 Bilirubin.indirec t [Mass/Vol] mg/dL Normal 0.0-0.4 [facility] Comment on above: Performed By: #### 7 5241-0, CMP, LIVR, 70396-5, CBCA ####[facility] ([id number])[address] [place] [address] 26443 Protein [Mass/Vol] 7.5 g/dL Normal 6.0-8.0 [facility] Comment on above: Performed By: #### 7 5241-0, CMP, LIVR, 65008-9, CBCA ####[facility] ([id number])[address] [place] [address] 98674 Lactate (P obed) [Moles/Vol]o n 08-12-2024 LACTATE W/REFLEX 0.9 mmol/L Normal 0.4-2.0 [facility] Comment on above: Result Comment: Resu lt did not trigger repeat Lactate,re-order if needed. Performed By: #### 3 2133-1 ####[facility] ([id number])[address] [place] [address] 22834 NM PULM PERFUSION SCANon NM PULM PERFUSION SCAN Normal [facility] Procalcitonin IA [Mass/Vol]o n 08-12-2024 PROCALCITONIN 0.05 ng/mL High <0.05 [facility] Comment on above: Result Comment: NOTE <0.50 ng/mL - Low risk of severe sepsis and/or septic shock.<2.00 ng/mL - Recommend retesting within 6-24 hours.>2.00 ng/mL - High risk of sepsis and/or septic shock. Performed By: #### 7 5241-0, CMP, LIVR, 55186-8, CBCA ####[facility] ([id number])[address] [place] [address] 31103 S PNEUMONIAE AG Uon 08-12-20 24 S. pneumoniae Ag Ql (U) Negative Normal NEG [facility] Comment on above: Performed By: #### 2 4027-5 ####[facility] ([id number])[address] [place] [address] 08490 SARS/FLU A+B/RSV by NAAT/Mol ecularon 08-12-2024 SARS/FLU A+B/RSV by NAAT/Molecular Normal [facility] Comment on above: Performed By: #### C OVFLR ####[facility] ([id number])[address] [place] [address] 20056 URINE CULTUREon 08-12-2024 Bacteria identified Cx Nom (U) Susceptible [facility] Comment on above: Performed By: #### 6 30-4 ####[facility] ([id number])[address] [facility], [address], [place] [address] URN MACROSCOPIC NURon 2023 BILIRUBIN MARYJO Negative Normal NEG [facility] Comment on above: Performed By: #### N UM ####[facility] ([id number])[address] [place] [address] [place] [address] BLOOD/HGB MARYJO Negative Normal NEG [facility] Comment on above: Performed By: #### N UM ####[facility] ([id number])[address] [place] [address] [place] [address] GLUCOSE MARYJO 250 mg/dL Abnormal NEG [facility] Comment on above: Performed By: #### N UM ####[facility] ([id number])[address] [place] [address] [place] [address] KETONES MARYJO Negative Normal NEG [facility] Comment on above: Performed By: #### N UM ####[facility] ([id number])[address] [place] [address] [place] [address] LEUKOCYTE ESTERASE MARYJO Trace Abnormal NEG [facility] Comment on above: Performed By: #### N UM ####[facility] ([id number])[address] [place] [address] [place] [address] NITRITE MARYJO Positive Abnormal NEG [facility] Comment on above: Performed By: #### N UM ####[facility] ([id number])[address] [place] [address] 67389 PH MARYJO 7.0 Normal 5.0-8.5 [facility] Comment on above: Performed By: #### N UM ####[facility] ([id number])[address] [place] [address] 84074 PROTEIN MARYJO 30 mg/dL Abnormal NEG [facility] Comment on above: Performed By: #### N UM ####[facility] ([id number])[address] [place] [address], [place] [address] SPECIFIC GRAVITY MARYJO >=1.030 Normal 1.003-1.03 5 [facility] Comment on above: Performed By: #### N UM ####[facility] ([id number])[address] [place] [address] 86848 UROBILINOGEN MARYJO 0.2 eu/dL Normal <1.1 [facility] Comment on above: Performed By: #### N UM ####[facility] ([id number])[address] [place] [address] 31764 VENOUS BLOOD GASon 4 TATO'S TEST Normal [facility] Comment on above: Performed By: #### V BG ####[facility] ([id number])[address] [place] [address] 54869 Base excess Calc (Bld) [Moles/Vol] 3.0 mmol/L High 0.0-2.0 [facility] Comment on above: Performed By: #### V BG ####[facility] ([id number])[address] [place] [address] 47057 Body temperature 98.6 [degF] Normal 37.0 [facility] Comment on above: Performed By: #### V BG ####[facility] ([id number])[address] [place] [address] 93402 HCO3 (Bld) [Moles/Vol] 30.2 mmol/L High 20.0-24.0 [facility] Comment on above: Performed By: #### V BG ####[facility] ([id number])[address] [place] [address] 72229 Oxygen saturation in Blood 43.0 % Low >80.0 [facility] Comment on above: Performed By: #### V BG ####[facility] ([id number])[address] [place] [address] 98820 OXYGEN SOURCE NC Normal [facility] Comment on above: Performed By: #### V BG ####[facility] ([id number])[address] [place] [address] 98789 PCO2, VENOUS 58.4 MMHG High 35-50 [facility] Comment on above: Performed By: #### V BG ####[facility] ([id number])[address] [place] [address] 14052 PH, VENOUS 7.322 Normal 7.320-7.42 0 [facility] Comment on above: Performed By: #### V BG ####[facility] ([id number])[address] [place] [address] 94048 PO2, VENOUS 27 MMHG Low 30-50 [facility] Comment on above: Performed By: #### V BG ####[facility] ([id number])[address] [place] [address] 10236 SAMPLE SITE N/A Normal [facility] Comment on above: Performed By: #### V BG ####[facility] ([id number])[address] [place] [address] 52683 SAMPLE TYPE VENOUS Normal [facility] Comment on above: Performed By: #### V BG ####[facility] ([id number])[address] [place] [address] 30169 XR CHEST 1 VWon 08-12-2024 XR CHEST 1 VW Normal [facility] POCT urinalysis dipstick onl yon 02-09-2024 Appearance (U) cloudy [facility] External Poct Urine Bilirubin Negative [facility] External Poct Urine Blood Trace [facility] External Poct Urine Color yellow [facility] External Poct Urine Glucose Negative [facility] External Poct Urine Ketones Negative [facility] External Poct Urine Leukocyte Esterase 2+ [facility] External Poct Urine Nitrite Positive [facility] External Poct Urine Ph 6.5 [facility] External Poct Urine Protein Trace [facility] External Poct Urine Specific Reynolds 1.020 [facility] External Poct Urine Urobilinogen 0.2 [facility] CT CARDIAC W C [facility] CARD ONLYon 01-18-2023 CT CARDIAC W C [facility] CARD ONLY EXAMINATION: CT [...] valve measurements were analyzed and provided by [employer] and are reported separately to the cardiology department. 3. Severe triple-vessel coronary artery calcifications. 4. Small sliding hiatal hernia. Interpreted by: Ning Parra MD Signed by: Ning Parra MD 01/18/23 Final result Normal [facility] CHEST ABDOMEN PELVIS [...] with a couple of ill-defined sclerotic foci. TELEPHONE ANSWERING SERVICE OPERATOR shunt tubing in the right neck [...] adenopathy. Very small fat containing umbilical hernia. TELEPHONE ANSWERING SERVICE OPERATOR shunt tubing enters the abdomen in [...] pelvis which may be related to the TELEPHONE ANSWERING SERVICE OPERATOR shunt catheter. There is a cystic [...] for planned (more content not included)... Normal [facility] No acute abnormality identified on CTA [...] recommended. 5 mm subpleural right lung nodule. TELEPHONE ANSWERING SERVICE OPERATOR shunt noted. Small hiatal hernia. The [...] Findings Committee. J Am Janel Radiol 2010;7:754-773 [facility] RIS CONSOLIDATED EXAMINATION: CTA OF THE [...] with a couple of ill-defined sclerotic foci. TELEPHONE ANSWERING SERVICE OPERATOR shunt tubing in the right neck [...] adenopathy. Very small fat containing umbilical hernia. TELEPHONE ANSWERING SERVICE OPERATOR shunt tubing enters the abdomen in [...] pelvis which may be related to the TELEPHONE ANSWERING SERVICE OPERATOR shunt catheter. There is a cystic [...] in the left flank and gluteal regions. PN RIS CONSOLIDATED Tato Syed MD - 01/15/2023 [...] with a couple of ill-defined sclerotic foci. TELEPHONE ANSWERING SERVICE OPERATOR shunt tubing in the right neck [...] adenopathy. Very small fat containing umbilical hernia. TELEPHONE ANSWERING SERVICE OPERATOR shunt tubing enters the abdomen in [...] pelvis which may be related to the TELEPHONE ANSWERING SERVICE OPERATOR shunt catheter. There is a cystic [...] and gluteal regions. (more content not included)... [employer] Work Phone: CTA CHEST ABDOMEN PELVIS W C ONTRASTOrdered By: Tato Syed on 01-15-2023 [employer] Phone: PULMONARY FUNCTIONon 023 [address] [address] PULMONARY FUNCTION PATIENT NAME: CUCA DEE : 1945 MED REC NO: [id number] ROOM: ACCOUNT NO: [id number] ADMIT DATE: 01/13/2023 PROVIDER: Whit Maloney DATE [...] correlation is recommended. WHIT MALONEY [id number] Doc#: [id number] CC: Normal [facility] CTA CHEST ABDOMEN PELVIS W C ONTRASTon 01-13-2023 Radiology Study observation (narrative) [facility] Work Phone: POC Glucose Fingerstickon Glucose [Mass/Vol] 104 mg/dL 65 - 105 mg/dL [facility] Basic Metabolic Panelon 11-16 Anion gap [Moles/Vol] 11 mmol/L 9 - 17 mmol/L [facility] Calcium [Mass/Vol] 9.0 mg/dL 8.6 - 10.4 mg/dL [facility] Chloride [Moles/Vol] 105 mmol/L 98 - 107 mmol/L [facility] CO2 [Moles/Vol] 20 mmol/L 20 - 31 mmol/L [facility] Creatinine [Mass/Vol] 1.04 mg/dL High 0.50 - 0.90 mg/dL [facility] GFR/1.73 sq M.predicted MDRD (S/P/Bld) [Vol rate/Area] 56 mL/min/{1.73_m2} Low - PINF [facility] Comment on above: These results [...] 131 mg/dL High 70 - 99 mg/dL [facility] Interpretation and review of laboratory results Abnormal [facility] Potassium [Moles/Vol] 4.3 mmol/L 3.7 - 5.3 mmol/L [facility] Sodium [Moles/Vol] 136 mmol/L 135 - 144 mmol/L [facility] Urea nitrogen (BldV) [Mass/Vol] 17 mg/dL 8 - 23 mg/dL [facility] Basic Metabolic Profon 12-10 Anion gap [Moles/Vol] 11 mmol/L Normal 9-17 [facility] Comment on above: Performed By: #### H H, BMPX #### [facility] [address] [place] [address] [employer] Manager: Luis Solis MD Calcium [Mass/Vol] 9.0 mg/dL Normal 8.6-10.4 [facility] Comment on above: Performed By: #### H H, BMPX #### [facility] [address] [place] [address] [employer] Department Manager: Luis Solis MD Chloride [Moles/Vol] 105 mmol/L Normal 98-107 [facility] Comment on above: Performed By: #### H H, BMPX #### [facility] [address] [place] [address] [employer] Department Manager: Luis Solis MD CO2 [Moles/Vol] 20 mmol/L Normal 20-31 [facility] Comment on above: Performed By: #### H H, BMPX #### [address] [address] [employer] Manager: Luis Solis MD Creatinine [Mass/Vol] 1.04 mg/dL High 0.50-0.90 [facility] Comment on above: Performed By: #### H H, BMPX #### [address] [address] [employer] Manager: Luis Solis MD GFR/1.73 sq M.predicted among non-blacks MDRD (S/P/Bld) [Vol rate/Area] 56 mL/min/{1.73_m2} Low >60 [facility] Comment on above: Result Comment: These [...] Performed By: #### H H, BMPX #### [employer] [address] [place] [address] [employer] Department Manager: Luis Solis MD Glucose [Mass/Vol] 131 mg/dL High 70-99 [facility] Comment on above: Performed By: #### H H, BMPX #### [facility] [address] [place] [id number] [employer] Manager: Luis Solis MD Potassium [Moles/Vol] 4.3 mmol/L Normal 3.7-5.3 [facility] Comment on above: Performed By: #### H H, BMPX #### [employer] [address] [place] [phone] [employer] Manager: Luis Solis MD Sodium [Moles/Vol] 136 mmol/L Normal 135-144 [facility] Comment on above: Performed By: #### H H, BMPX #### [facility] [address] [place] [phone] [employer] Manager: Luis Solis MD Urea nitrogen [Mass/Vol] 17 mg/dL Normal 8-23 [facility] Comment on above: Performed By: #### H H, BMPX #### [employer] [address] [place] [id number] [employer] Manager: Luis Solis MD Hemoglobin and Hematocriton 12-10-2022 Hematocrit (Bld) [Volume fraction] 25.5 % Low 36.3 - 47.1 % [facility] Hemoglobin (Bld) [Mass/Vol] 7.9 g/dL Low 11.9 - 15.1 g/dL [facility] Interpretation and review of laboratory results Abnormal [facility] Hgb/Hcton 12-10-2022 Hematocrit (Bld) [Volume fraction] 25.5 % Low 36.3-47.1 [facility] Comment on above: Performed By: #### H H, BMPX #### [employer] [address] [place] [address] [employer] Department Manager: Luis Solis MD Hemoglobin (Bld) [Mass/Vol] 7.9 g/dL Low 11.9-15.1 [facility] Comment on above: Performed By: #### H H, BMPX #### [employer] [address] [place], [place] [id number] [employer] Department Manager: Luis Solis MD Laboratory - Blood bankon Blood product type Nom (BPU) Leukocyte Reduced Red Cell [facility] No Panel Informationon 12-10 Blood Bank ISBT Product Blood Type 9500 [facility] Blood Bank Unit Type and Rh Negative [facility] Crossmatch Result COMPATIBLE [facility] Dispense Status TRANSFUSED [facility] Transfusion Status OK TO TRANSFUSE [facility] Unit Divison 0 [facility] POC Glucose Fingerstickon Glucose [Mass/Vol] 105 mg/dL 65 - 105 mg/dL [facility] Glucose [Mass/Vol] 119 mg/dL High 65 - 105 mg/dL [facility] Interpretation and review of laboratory results Abnormal [facility] Glucose [Mass/Vol] 159 mg/dL High 65 - 105 mg/dL [facility] Interpretation and review of laboratory results Abnormal [facility] Glucose [Mass/Vol] 70 mg/dL 65 - 105 mg/dL [facility] Glucose [Mass/Vol] 41 mg/dL Low 65 - 105 mg/dL [facility] Comment on above: Critical Noted Interpretation and review of laboratory results Abnormal [facility] TYPE AND SCREENon 12-10-2022 ABO/Rh Negative [facility] Arm Band Number [id number] [facility] Blood Bank Blood Product Expiration Date [facility] Blood Bank Blood Product Expiration Date [facility] Blood Bank Blood Product Expiration Date [id number] [facility] [employer] Blood product unit ID (Dose) [#] [id number] [facility] [employer] Blood product unit ID (Dose) [#] [id number] [facility] [employer] Blood product unit ID (Dose) [#] [id number] [facility] [employer] Expiration Date 12/10/2022,2359 [facility] [employer] [facility] Product Code Blood Bank [id number] [facility] Product Code Blood Bank [id number] [facility] Product Code Blood Bank [id number] [facility] Unit Issue Date/Time [id number] [facility] Issue Date/Time [id number] [facility] Issue Date/Time [id number] [facility] [employer] Basic Metab w/rfx MGon 12-09 Anion gap [Moles/Vol] 10 mmol/L Normal 9-17 [facility] Comment on above: Performed By: #### H H, BMPX #### [facility] [address] [place] [address] [employer] Department Manager: Luis Solis MD Calcium [Mass/Vol] 8.6 mg/dL Normal 8.6-10.4 [facility] Comment on above: Performed By: #### H H, BMPX #### [employer] [address] [place] [address] [employer] Department Manager: Luis Solis MD Chloride [Moles/Vol] 106 mmol/L Normal 98-107 [facility] Comment on above: Performed By: #### H H, BMPX #### [facility] [address] [place] [address] [employer] Department Manager: Luis Solis MD CO2 [Moles/Vol] 21 mmol/L Normal 20-31 [facility] Comment on above: Performed By: #### H H, BMPX #### [employer] [address] [place] [address] [employer] Department Manager: Luis Solis MD Creatinine [Mass/Vol] 1.33 mg/dL High 0.50-0.90 [facility] Comment on above: Performed By: #### H H, BMPX #### [facility] [address] [place] [address] [employer] Department Manager: Luis Solis MD GFR/1.73 sq M.predicted among non-blacks MDRD (S/P/Bld) [Vol rate/Area] 41 mL/min/{1.73_m2} Low >60 [facility] Comment on above: Result Comment: Effective [...] By: #### H H, BMPX #### [facility] [address] [place] [address] [employer] Department Manager: Luis Solis MD Glucose [Mass/Vol] 102 mg/dL High 70-99 [facility] Comment on above: Performed By: #### H H, BMPX #### [facility] [address] [place] [address] [employer] Department Manager: Luis Solis MD Potassium [Moles/Vol] 4.1 mmol/L Normal 3.7-5.3 [facility] Comment on above: Performed By: #### H H, BMPX #### [facility] [address] [place] [address] [employer] Department Manager: Luis Solis MD Sodium [Moles/Vol] 137 mmol/L Normal 135-144 [facility] Comment on above: Performed By: #### H H, BMPX #### [facility] [address] [place] [address] [place] [address] [employer] Department Manager: Luis Solis MD Urea nitrogen [Mass/Vol] 19 mg/dL Normal 8-23 [facility] Comment on above: Performed By: #### H H, BMPX #### [facility] [address] [place], [place] [phone] [employer] Department Manager: Luis Solis MD Basic Metabolic Panel w/ Ref pierre to MGon 12-09-2022 Anion gap [Moles/Vol] 10 mmol/L 9 - 17 mmol/L [facility] Calcium [Mass/Vol] 8.6 mg/dL 8.6 - 10.4 mg/dL [facility] Chloride [Moles/Vol] 106 mmol/L 98 - 107 mmol/L [facility] CO2 [Moles/Vol] 21 mmol/L 20 - 31 mmol/L [facility] [employer] [place] Creatinine [Mass/Vol] 1.33 mg/dL High 0.50 - 0.90 mg/dL [facility] GFR/1.73 sq M.predicted MDRD (S/P/Bld) [Vol rate/Area] 41 mL/min/{1.73_m2} Low - PINF [facility] Comment on above: Effective Aug 17, 2022 [...] 102 mg/dL High 70 - 99 mg/dL [facility] Interpretation and review of laboratory results Abnormal [facility] Potassium [Moles/Vol] 4.1 mmol/L 3.7 - 5.3 mmol/L [facility] Sodium [Moles/Vol] 137 mmol/L 135 - 144 mmol/L [facility] Urea nitrogen (BldV) [Mass/Vol] 19 mg/dL 8 - 23 mg/dL [facility] Hemoglobin and Hematocriton 12-09-2022 Hematocrit (Bld) [Volume fraction] 25.6 % Low 36.3 - 47.1 % [facility] Hemoglobin (Bld) [Mass/Vol] 8.0 g/dL Low 11.9 - 15.1 g/dL [facility] Interpretation and review of laboratory results Abnormal [facility] Hematocrit (Bld) [Volume fraction] 23.5 % Low 36.3 - 47.1 % [facility] Hemoglobin (Bld) [Mass/Vol] 7.1 g/dL Low 11.9 - 15.1 g/dL [facility] Interpretation and review of laboratory results Abnormal [facility] Hgb/Hcton 12-09-2022 Hematocrit (Bld) [Volume fraction] 25.6 % Low 36.3-47.1 [facility] Comment on above: Performed By: #### H H, BMPX #### [employer] [address] [place] [address] [employer] Department Manager: Luis Solis MD Hemoglobin (Bld) [Mass/Vol] 8.0 g/dL Low 11.9-15.1 [facility] Comment on above: Performed By: #### H H, BMPX #### [employer] [address] [place] [address] [employer] Department Manager: Luis Solis MD Hematocrit (Bld) [Volume fraction] 23.5 % Low 36.3-47.1 [facility] Comment on above: Performed By: #### H H, BMPX #### [facility] [address] [place] [address] [employer] Department Manager: Luis Solis MD Hemoglobin (Bld) [Mass/Vol] 7.1 g/dL Low 11.9-15.1 [facility] Comment on above: Performed By: #### H H, BMPX #### [employer] [address] [place] [address] [phone] [employer] Department Manager: Luis Solis MD POC Glucose Fingerstickon Glucose [Mass/Vol] 143 mg/dL High 65 - 105 mg/dL [facility] Interpretation and review of laboratory results Abnormal [facility] Glucose [Mass/Vol] 96 mg/dL 65 - 105 mg/dL [facility] Glucose [Mass/Vol] 114 mg/dL High 65 - 105 mg/dL [facility] Interpretation and review of laboratory results Abnormal [facility] Glucose [Mass/Vol] 111 mg/dL High 65 - 105 mg/dL [facility] Interpretation and review of laboratory results Abnormal [facility] Type + Screenon 12-09-2022 Type + Screen Sample Expiration 12/10/2022,2359 Arm Band Number [id number] ABO/Rh(D) O NEGATIVE Antibody Screen NEGATIVE Unit Number [id number] Blood Component Type Leukocyte Reduced Red Cell Unit Division 00 Status of Unit TRANSFUSED Transfusion Status OK TO TRANSFUSE Crossmatch Result COMPATIBLE Unit Number [id number] Blood Component Type Leukocyte Reduced Red Cell Unit Division 00 Status of Unit TRANSFUSED Transfusion Status OK TO TRANSFUSE Crossmatch Result COMPATIBLE Unit Number [id number] Blood Component Type Leukocyte Reduced Red Cell Unit Division 00 Status of Unit TRANSFUSED Transfusion Status OK TO TRANSFUSE Crossmatch Result COMPATIBLE Normal [facility] Comment on above: Performed By: #### R CHITO, BMPX #### [employer] [address] [place], [place] [phone] [employer] Department Manager: Luis Solis MD Basic Metab w/rfx MGon 12-08 Anion gap [Moles/Vol] 9 mmol/L Normal 9-17 [facility] Comment on above: Performed By: #### R CHITO, BMPX #### [facility] [address] [place], [place] [id number] [employer] Department Manager: Luis Solis MD Calcium [Mass/Vol] 8.6 mg/dL Normal 8.6-10.4 [facility] Comment on above: Performed By: #### R EJEC, BMPX #### [facility] [address] [place] [address] [employer] Department Manager: Luis Solis MD Chloride [Moles/Vol] 106 mmol/L Normal 98-107 [facility] Comment on above: Performed By: #### R EJEC, BMPX #### [facility] [address] [place] [address]27 [employer] Department Manager: Luis Solis MD CO2 [Moles/Vol] 24 mmol/L Normal 20-31 [facility] Comment on above: Performed By: #### R EJEC, BMPX #### [facility] [address] [place] [address] 92901 [employer] Department Manager: Luis Solis MD Creatinine [Mass/Vol] 1.33 mg/dL High 0.50-0.90 [facility] Comment on above: Performed By: #### R EJEC, BMPX #### [facility] [address] [place] [address]55 [employer] Department Manager: Luis Solis MD GFR/1.73 sq M.predicted among non-blacks MDRD (S/P/Bld) [Vol rate/Area] 41 mL/min/{1.73_m2} Low >60 [facility] Comment on above: Result Comment: Effective [...] Performed By: #### R EJEC, BMPX #### [address] [address] [employer] Department Manager: Luis Solis MD Glucose [Mass/Vol] 160 mg/dL High 70-99 [facility] Comment on above: Performed By: #### R EJEC, BMPX #### [facility] [address] [place] [address] [employer] Department Manager: Luis Solis MD Potassium [Moles/Vol] 4.4 mmol/L Normal 3.7-5.3 [facility] Comment on above: Performed By: #### R EJEC, BMPX #### [facility] [address] [place] [address] [employer] Department Manager: Luis Solis MD Sodium [Moles/Vol] 139 mmol/L Normal 135-144 [facility] Comment on above: Performed By: #### R EJEC, BMPX #### [facility] [address] [place] [address] [employer] Department Manager: Luis Solis MD Urea nitrogen [Mass/Vol] 21 mg/dL Normal 8-23 [facility] Comment on above: Performed By: #### R EJEC, BMPX #### [facility] [address] [place], [place] [phone] [employer] Department Manager: Luis Solis MD Basic Metabolic Panelon 11-16 Anion gap [Moles/Vol] 7 mmol/L Low 9 - 17 mmol/L [facility] Calcium [Mass/Vol] 8.5 mg/dL Low 8.6 - 10.4 mg/dL [facility] Chloride [Moles/Vol] 110 mmol/L High 98 - 107 mmol/L [facility] CO2 [Moles/Vol] 25 mmol/L 20 - 31 mmol/L [facility] Creatinine [Mass/Vol] 1.43 mg/dL High 0.50 - 0.90 mg/dL [facility] GFR/1.73 sq M.predicted MDRD (S/P/Bld) [Vol rate/Area] 38 mL/min/{1.73_m2} Low - PINF [facility] Comment on above: Effective Aug 17, 2022 [...] 124 mg/dL High 70 - 99 mg/dL [facility] [employer] Interpretation and review of laboratory results Abnormal [facility] [employer] Potassium [Moles/Vol] 4.7 mmol/L 3.7 - 5.3 mmol/L [facility] [employer] Sodium [Moles/Vol] 142 mmol/L 135 - 144 mmol/L [facility] [employer] Urea nitrogen (BldV) [Mass/Vol] 23 mg/dL 8 - 23 mg/dL [facility] Basic Metabolic Panel w/ Ref pierre to MGon 12-08-2022 Anion gap [Moles/Vol] 9 mmol/L 9 - 17 mmol/L [facility] Calcium [Mass/Vol] 8.6 mg/dL 8.6 - 10.4 mg/dL [facility] Chloride [Moles/Vol] 106 mmol/L 98 - 107 mmol/L [facility] [employer] CO2 [Moles/Vol] 24 mmol/L 20 - 31 mmol/L [facility] Creatinine [Mass/Vol] 1.33 mg/dL High 0.50 - 0.90 mg/dL [facility] [employer] GFR/1.73 sq M.predicted MDRD (S/P/Bld) [Vol rate/Area] 41 mL/min/{1.73_m2} Low - PINF [facility] Comment on above: Effective Aug [...] 160 mg/dL High 70 - 99 mg/dL [facility] Interpretation and review of laboratory results Abnormal [facility] Potassium [Moles/Vol] 4.4 mmol/L 3.7 - 5.3 mmol/L [facility] Sodium [Moles/Vol] 139 mmol/L 135 - 144 mmol/L [facility] Urea nitrogen (BldV) [Mass/Vol] 21 mg/dL 8 - 23 mg/dL [facility] Basic Metabolic Profon 12-08 Anion gap [Moles/Vol] 7 mmol/L Low 9-17 [facility] Comment on above: Performed By: #### B MP, CBC #### [facility] [address] [place] [address]851 [employer] Department Manager: Luis Solis MD Calcium [Mass/Vol] 8.5 mg/dL Low 8.6-10.4 [facility] Comment on above: Performed By: #### B MP, CBC #### [facility] [address] [place] [address] [employer] Department Manager: Luis Solis MD Chloride [Moles/Vol] 110 mmol/L High 98-107 [facility] Comment on above: Performed By: #### B MP, CBC #### [facility] [address] [place] [address] [employer] Department Manager: Luis Solis MD CO2 [Moles/Vol] 25 mmol/L Normal 20-31 [facility] Comment on above: Performed By: #### B MP, CBC #### [facility] [address] [place] [address] [employer] Department Manager: Luis Solis MD Creatinine [Mass/Vol] 1.43 mg/dL High 0.50-0.90 [facility] Comment on above: Performed By: #### B MP, CBC #### [facility] [address] [place] [address]30 [employer] Department Manager: Luis Solis MD GFR/1.73 sq M.predicted among non-blacks MDRD (S/P/Bld) [Vol rate/Area] 38 mL/min/{1.73_m2} Low >60 [facility] Comment on above: Result Comment: Effective [...] Performed By: #### B FAITH, CBC #### [facility] [address] [place] [address] [employer] Department Manager: Luis Solis MD Glucose [Mass/Vol] 124 mg/dL High 70-99 [facility] Comment on above: Performed By: #### B MP, CBC #### [facility] [address] [place] [address]007 [employer] Department Manager: Luis Solis MD Potassium [Moles/Vol] 4.7 mmol/L Normal 3.7-5.3 [facility] Comment on above: Performed By: #### B MP, CBC #### [facility] [address] [place] [address] [employer] Department Manager: Luis Solis MD Sodium [Moles/Vol] 142 mmol/L Normal 135-144 [facility] Comment on above: Performed By: #### B MP, CBC #### [employer] [address] [place] [address]19 [employer] Department Manager: Luis Soils MD Urea nitrogen [Mass/Vol] 23 mg/dL Normal 8-23 [facility] Comment on above: Performed By: #### B MP, CBC #### [employer] [address] [place] [address] 13284 [employer] Department Manager: Luis Solis MD CBCon 12-08-2022 Erythrocyte distribution width (RBC) [Ratio] 17.8 % High 11.8-14.4 [facility] Comment on above: Performed By: #### B MP, CBC #### [facility] [address] [place] [address]653 [employer] Department Manager: Luis Solis MD Hematocrit (Bld) [Volume fraction] 22.0 % Low 36.3-47.1 [facility] Comment on above: Performed By: #### B MP, CBC #### [facility] [address] [place] [address] [employer] Department Manager: Luis Solis MD Hemoglobin (Bld) [Mass/Vol] 6.6 g/dL Critically low 11.9-15.1 [facility] Comment on above: Performed By: #### B MP, CBC #### [address] [address] [employer] Department Manager: Luis Solis MD MCH (RBC) [Entitic mass] 27.5 pg Normal 25.2-33.5 [facility] Comment on above: Performed By: #### B MP, CBC #### [address] [address] [employer] Department Manager: Luis Solis MD MCHC (RBC) [Mass/Vol] 30.0 g/dL Normal 28.4-34.8 [facility] Comment on above: Performed By: #### B MP, CBC #### [facility] [address] [place] [address] [employer] Department Manager: Luis Solis MD MCV (RBC) [Entitic vol] 91.7 fL Normal 82.6-102.9 [facility] Comment on above: Performed By: #### B MP, CBC #### [facility] [address] [place] [address] [employer] Department Manager: Luis Solis MD NRBC Automated 0.0 per 100 WBC Normal 0.0 [facility] Comment on above: Performed By: #### B MP, CBC #### [address] [address] [employer] Department Manager: Luis Solis MD Platelet mean volume (Bld) [Entitic vol] 10.3 fL Normal 8.1-13.5 [facility] Comment on above: Performed By: #### B MP, CBC #### [address] [address] [employer] Department Manager: Luis Solis MD Platelets (Bld) [#/Vol] 250 10*3/uL Normal 138-453 [facility] Comment on above: Performed By: #### B MP, CBC #### [address] [address] [employer] Department Manager: Luis Solis MD RBC (Bld) [#/Vol] 2.40 10*6/uL Low 3.95-5.11 [facility] Comment on above: Performed By: #### B MP, CBC #### [address] [address] [employer] Department Manager: Luis Solis MD WBC (Bld) [#/Vol] 9.2 10*3/uL Normal 3.5-11.3 [facility] Comment on above: Performed By: #### B MP, CBC #### [address] [address] [employer] Department Manager: Luis Solis MD Hematocrit (Bld) [Volume fraction] 22.0 % Low 36.3 - 47.1 % [facility] Hemoglobin (Bld) [Mass/Vol] 6.6 g/dL Critically low 11.9 - 15.1 g/dL [facility] Interpretation and review of laboratory results Abnormal [facility] MCH (RBC) [Entitic mass] 27.5 pg 25.2 - 33.5 pg [facility] MCHC (RBC) [Mass/Vol] 30.0 g/dL 28.4 - 34.8 g/dL [facility] MCV (RBC) [Entitic vol] 91.7 fL 82.6 - 102.9 fL [facility] NRBC Automated 0.0 0.0 per 100 WBC [facility] Platelet distribution width (Bld) [Ratio] 17.8 % High 11.8 - 14.4 % [facility] Platelet mean volume (Bld) [Entitic vol] 10.3 fL 8.1 - 13.5 fL [facility] Platelets (Bld) [#/Vol] 250 10*3/uL [facility] RBC (Bld) [#/Vol] 2.40 10*6/uL Low 3.95 - 5.11 m/uL [facility] WBC (Bld) [#/Vol] 9.2 10*3/uL [facility] Hemoglobin and Hematocriton 12-08-2022 Hematocrit (Bld) [Volume fraction] 24.4 % Low 36.3 - 47.1 % [facility] Hemoglobin (Bld) [Mass/Vol] 7.4 g/dL Low 11.9 - 15.1 g/dL [facility] Interpretation and review of laboratory results Abnormal [facility] Hematocrit (Bld) [Volume fraction] 24.6 % Low 36.3 - 47.1 % [facility] Hemoglobin (Bld) [Mass/Vol] 7.7 g/dL Low 11.9 - 15.1 g/dL [facility] Interpretation and review of laboratory results Abnormal [facility] Hematocrit (Bld) [Volume fraction] 22.9 % Low 36.3 - 47.1 % [facility] Hemoglobin (Bld) [Mass/Vol] 7.6 g/dL Low 11.9 - 15.1 g/dL [facility] Interpretation and review of laboratory results Abnormal [facility] Hematocrit (Bld) [Volume fraction] 21.9 % Low 36.3 - 47.1 % [facility] Hemoglobin (Bld) [Mass/Vol] 6.5 g/dL Critically low 11.9 - 15.1 g/dL [facility] Interpretation and review of laboratory results Abnormal [facility] Hgb/Hcton 12-08-2022 Hematocrit (Bld) [Volume fraction] 24.4 % Low 36.3-47.1 [facility] Comment on above: Performed By: #### R EJEC, BMPX #### [employer] [address] [place] [address] [employer] Department Manager: Luis Solis MD Hemoglobin (Bld) [Mass/Vol] 7.4 g/dL Low 11.9-15.1 [facility] Comment on above: Performed By: #### R EJEC, BMPX #### [employer] [address] [place] [address] [phone] [employer] Department Manager: Luis Solis MD Hematocrit (Bld) [Volume fraction] 24.6 % Low 36.3-47.1 [facility] Comment on above: Performed By: #### R EJEC, BMPX #### [employer] [address] [place] [address] [employer] Department Manager: Luis Solis MD Hemoglobin (Bld) [Mass/Vol] 7.7 g/dL Low 11.9-15.1 [facility] Comment on above: Performed By: #### R EJEC, BMPX #### [facility] [address] [place] [address] [employer] Department Manager: Luis Solis MD Hematocrit (Bld) [Volume fraction] 22.9 % Low 36.3-47.1 [facility] Comment on above: Performed By: #### R EJEC, BMPX #### [facility] [address] [place] [address] [employer] Department Manager: Luis Solis MD Hemoglobin (Bld) [Mass/Vol] 7.6 g/dL Low 11.9-15.1 [facility] Comment on above: Performed By: #### R ZAINABEC, BMPX #### [facility] [address] [place] [address] [employer] Department Manager: Luis Solis MD Hematocrit (Bld) [Volume fraction] 21.9 % Low 36.3-47.1 [facility] Comment on above: Performed By: #### H H #### [facility] [address] [place] [address] [employer] Department Manager: Luis Solis MD Hemoglobin (Bld) [Mass/Vol] 6.5 g/dL Critically low 11.9-15.1 [facility] Comment on above: Performed By: #### H H #### [facility] [address] [place] [address] [employer] Department Manager: Luis Solis MD Hematocrit (Bld) [Volume fraction] 23.7 % Low 36.3-47.1 [facility] Comment on above: Performed By: #### R CHITO, BMPX #### [facility] [address] [place] [address] [employer] Department Manager: Luis Solis MD Hemoglobin (Bld) [Mass/Vol] 7.6 g/dL Low 11.9-15.1 [facility] Comment on above: Performed By: #### R CHITO, BMPX #### [facility] [address] [place] [address] [employer] Department Manager: Luis Solis MD POC Glucose Fingerstickon Glucose [Mass/Vol] 129 mg/dL High 65 - 105 mg/dL [facility] Interpretation and review of laboratory results Abnormal [facility] Glucose [Mass/Vol] 138 mg/dL High 65 - 105 mg/dL [facility] Interpretation and review of laboratory results Abnormal [facility] Glucose [Mass/Vol] 164 mg/dL High 65 - 105 mg/dL [facility] Interpretation and review of laboratory results Abnormal [facility] SPECIMEN REJECTIONon 023 Ordered Test [facility] [facility] Reason for Rejection Unable to perform testing: Specimen clotted. [facility] Specimen source Nom (Unsp spec) .BLOOD [facility] Specimen Rejectionon 023 Reason for rejection Unable to perform testing: Specimen clotted. [facility] Comment on above: Performed By: #### R EJEC, BMPX #### [employer] [address] [place] [address] [phone] [employer] Department Manager: Luis Solis MD Source of sample .BLOOD [facility] Comment on above: Performed By: #### R EJEC, BMPX #### [employer] [address] [place] [address] [phone] [employer] Department Manager: Luis Solis MD Test ordered [facility] Comment on above: Performed By: #### R EJEC, BMPX #### [employer] [address] [place] [address] [phone] [employer] Department Manager: Luis Solis MD Activated clotting timeon Activated Clotting Time 262 High [facility] Interpretation and review of laboratory results Abnormal [facility] CHLORIDE (POC)on 12-07-2022 Chloride [Moles/Vol] 107 mmol/L 98 - 107 mmol/L [facility] Catheterization and angiogra phy procedure details panelon 12-07-2022 [facility] Work Phone: Creatinine W/GFR Point of Ca reon 12-07-2022 Creatinine [Mass/Vol] 1.35 mg/dL High 0.51 - 1.19 mg/dL [facility] eGFR, POC 41 mL/min/1.7 3m2 [facility] Comment on above: Effective Aug [...] % [facility] Hemoglobin (Bld) [Mass/Vol] 7.6 g/dL Low 11.9 - 15.1 g/dL [facility] Interpretation and review of laboratory results Abnormal [facility] Hematocrit (Bld) [Volume fraction] 24.9 % Low 36.3 - 47.1 % [facility] Hemoglobin (Bld) [Mass/Vol] 7.2 g/dL Low 11.9 - 15.1 g/dL [facility] Interpretation and review of laboratory results Abnormal [facility] Hemoglobin and hematocrit, b loodon 12-07-2022 Hematocrit (Bld) [Volume fraction] 20 % Low 36 - 46 % [facility] Hemoglobin (Bld) [Mass/Vol] 6.9 g/dL Critically low 12.0 - 16.0 g/dL [facility] Interpretation and review of laboratory results Abnormal [facility] Hematocrit (Bld) [Volume fraction] 30 % Low 36 - 46 % [facility] Hemoglobin (Bld) [Mass/Vol] 10.1 g/dL Low 12.0 - 16.0 g/dL [facility] Hgb/Hcton 12-07-2022 Hematocrit (Bld) [Volume fraction] 24.9 % Low 36.3-47.1 [facility] Comment on above: Performed By: #### R AWILDA DALE #### [employer] [address] [place] [address] [employer] Department Manager: Luis Solis MD Hemoglobin (Bld) [Mass/Vol] 7.2 g/dL Low 11.9-15.1 [facility] Comment on above: Performed By: #### R EJEC, BMPX #### [facility] [address] [id number] [employer] Department Manager: Luis Solis MD No Panel Informationon 12-07 Interpretation and review of laboratory results Abnormal [facility] POC Glucose Fingerstickon Glucose [Mass/Vol] 197 mg/dL High 65 - 105 mg/dL [facility] Interpretation and review of laboratory results Abnormal [facility] Glucose [Mass/Vol] 101 mg/dL 65 - 105 mg/dL [facility] POCT Glucoseon 12-07-2022 Glucose [Mass/Vol] 83 mg/dL 74 - 100 mg/dL [facility] POCT urea (BUN)on 12-07-2022 Urea nitrogen [Mass/Vol] 25 mg/dL 8 - 26 mg/dL [facility] POTASSIUM (POC)on 12-07-2022 Potassium [Moles/Vol] 4.2 mmol/L 3.5 - 4.5 mmol/L [facility] SODIUM (POC)on 12-07-2022 Sodium [Moles/Vol] 142 mmol/L 138 - 146 mmol/L [facility] VL DUP LOWER EXTREMITY ARTER IES RIGHTon 12-07-2022 Darnell Monique MD - 12/07/2022 [facility] Vascular Lower Extremities Arterial Duplex Procedure Patient Name CHRISTA Date of Study 12/07/2022 [facility] Date of 1945 Gender Female Age 77 year(s) Race Room Number 0501 Height: 65 inch, 165.1 cm Corporate ID # [id number] Weight: 208 pounds, 94.3 kg Patient BSA: 2.01 m^2 BMI: 34.61 kg/m^2 MR # [id number] 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 ! ! +---------++-----+-----+----- -+----+------++---+-----+---- --+----+--------- + [employer] Work Phone: Radiology Study observation (narrative) [facility] Work Phone: VL DUP LOWER EXTREMITY ARTER IES RIGHTOrdered By: Darnell Burk on 12-07-2022 [facility] Work Phone: CHLORIDE (POC)on 11-24-2022 Chloride [Moles/Vol] 105 mmol/L 98 - 107 mmol/L [facility] Creatinine W/GFR Point of Ca reon 11-24-2022 Creatinine [Mass/Vol] 1.5 mg/dL High 0.51 - 1.19 mg/dL [facility] eGFR, POC 36 mL/min/1.7 3m2 [facility] Comment on above: Effective Aug 17, 2022 [...] 26 % Low 36 - 46 % [facility] Hemoglobin (Bld) [Mass/Vol] 8.7 g/dL Low 12.0 - 16.0 g/dL [facility] No Panel Informationon 11-24 Interpretation and review of laboratory results Abnormal [employer] POCT Glucoseon 11-24-2022 Glucose [Mass/Vol] 135 mg/dL High 74 - 100 mg/dL [facility] POCT urea (BUN)on 11-24-2022 POC BUN Result not available. 8 - 26 mg/dL [facility] POTASSIUM (POC)on 11-24-2022 Potassium [Moles/Vol] 5.3 mmol/L High 3.5 - 4.5 mmol/L [facility] Platelet Counton 11-24-2022 Platelets (Bld) [#/Vol] 314 10*3/uL Normal 138-453 [facility] Comment on above: Performed By: #### P LT #### [facility] [address] [place] [address] 28948 [employer] Department Manager: Luis Solis MD Platelets (Bld) [#/Vol] 314 10*3/uL [facility] SODIUM (POC)on 11-24-2022 Sodium [Moles/Vol] 142 mmol/L 138 - 146 mmol/L [facility] Cult,Bloodon 10-03-2022 Cult,Blood Specimen Description .BLOOD Special Requests L AC 10ML Culture NO GROWTH 5 DAYS Report Status FINAL 10/03/2022 Normal [facility] Comment on above: Performed By: #### B C #### [facility] [address] [place] [address] 66797 [employer] Department Manager: Luis Solis MD Cult,Blood Specimen Description .BLOOD Special Requests R AC 10ML Culture NO GROWTH 5 DAYS Report Status FINAL 10/03/2022 Normal [facility] Comment on above: Performed By: #### H H, BMPX #### [facility] [address] [place] [address] 94513 [employer] Department Manager: Luis Solis MD Basic Metab w/rfx MGon 09-30 Anion gap [Moles/Vol] 9 mmol/L Normal - [facility] Comment on above: Performed By: #### H H, BMPX #### [facility] [address] [place] [address] 40372 [employer] Department Manager: Luis Solis MD Calcium [Mass/Vol] 8.8 mg/dL Normal 8.6-10.4 [facility] Comment on above: Performed By: #### H H, BMPX #### [facility] [address] [place] [address] 86905 [employer] Department Manager: Luis Solis MD Chloride [Moles/Vol] 102 mmol/L Normal 98-107 [facility] Comment on above: Performed By: #### H H, BMPX #### [facility] [address] [place] [address] 45560 [employer] Department Manager: Luis Solis MD CO2 [Moles/Vol] 28 mmol/L Normal 20-31 [facility] Comment on above: Performed By: #### H H, BMPX #### [facility] [address] [place] [address] 42097 [employer] Department Manager: Luis Solis MD Creatinine [Mass/Vol] 1.28 mg/dL High 0.50-0.90 [facility] Comment on above: Performed By: #### H H, BMPX #### [facility] [address] [place] [address] 99575 [employer] Department Manager: Luis Solis MD GFR/1.73 sq M.predicted among non-blacks MDRD (S/P/Bld) [Vol rate/Area] 43 mL/min/{1.73_m2} Low >60 [facility] Comment on above: Result Comment: Effective [...] Performed By: #### H H, BMPX #### [facility] [address] [place] [address] 12997 [employer] Department Manager: Luis Solis MD Glucose [Mass/Vol] 141 mg/dL High 70-99 [facility] Comment on above: Performed By: #### H H, BMPX #### [facility] [place] [address] [employer] Department Manager: Luis Solis MD Potassium [Moles/Vol] 4.0 mmol/L Normal 3.7-5.3 [facility] Comment on above: Performed By: #### H H, BMPX #### [facility] [address] [place] [address] 20430 [employer] Department Manager: Luis Solis MD Sodium [Moles/Vol] 139 mmol/L Normal 135-144 [facility] Comment on above: Performed By: #### H H, BMPX #### [facility] [address] [place] [address] 36440 [employer] Department Manager: Luis Solis MD Urea nitrogen [Mass/Vol] 18 mg/dL Normal 8-23 [facility] Comment on above: Performed By: #### H H, BMPX #### [facility] [address] [place] [address] 44724 [employer] Department Manager: Luis Solis MD Cult,Urineon 09-30-2022 Cult,Urine Specimen Description .URINE,STRAIGHT CATHETER Culture ESCHERICHIA COLI >[id number] CFU/ML AEROCOCCUS URINAE 50 to 100,000 CFU/ML There are no CLSI interpretive guidelines for routine susceptibility testing. Aerococcus species are reported to be susceptible to penicillin. A. urinae has also been described as susceptible to amoxicillin and nitrofurantoin (for treatment of urinary tract infections only). STREPTOCOCCUS ANGINOSUS 50 to 100,000 CFU/ML Report Status FINAL 09/30/2022 SUSCEPTIBILITY Organism ESCHERICHIA COLI Method CLRAK Ampicillin 4 SUSCEPTIBLE Aztreonam <=1 SUSCEPTIBLE Cefazolin <=4 SUSCEPTIBLE Cefazolin sensitivity results can be used to predict the effectiveness of oral cephalosporins (eg. Cephalexin) in uncomplicated Urinary Tract Infections due to E. coli, K. pneumoniae, and P. mirabilis Ceftriaxone <=1 SUSCEPTIBLE Ciprofloxacin <=0.25 SUSCEPTIBLE ESBL NEGATIVE Gentamicin <=1 SUSCEPTIBLE Nitrofurantoin <=16 SUSCEPTIBLE Tobramycin <=1 SUSCEPTIBLE Trimethoprim/Sulfa <=20 SUSCEPTIBLE Piperacillin/Tazobactam <=4 SUSCEPTIBLE Susceptible [facility] Comment on above: Performed By: #### H H, BMPX #### [employer] [address] [place], [place] [phone] [employer] Department Manager: Luis Solis MD APTTon 09-29-2022 aPTT Coag (Bld) [Time] 30.4 s Normal 20.5-30.5 [facility] Comment on above: Result Comment: IV Heparin Therapy Range: 48.6-77.8 Performed By: #### H H, BMPX #### [employer] [address] [place], [place] [phone] [employer] Department Manager: Luis Solis MD Procalcitoninon 6 Procalcitonin 0.23 ng/mL High <0.09 [facility] Comment on above: Result Comment: Suspected [...] entered into the Change in Procalcitonin Calculator ([email or web address]-[email or web address]) to determine the patient's Mortality Risk Prognosis In healthy neonates, plasma Procalcitonin (PCT) concentrations increase gradually after , reaching peak values at about 24 hours of age then decrease to normal values below 0.5 ng/mL by 48-72 hours of age. Performed By: #### R EJEC, BMPX #### [employer] [address] [place], [place] [phone] [employer] Department Manager: Luis Solis MD APTTon 09-28-2022 aPTT Coag (Bld) [Time] 110.7 s Critically high 20.5-30.5 [facility] Comment on above: Result Comment: IV Heparin Therapy Range: 48.6-77.8 Performed By: #### P TT #### [place] [address] [employer] Department Manager: Luis Solis MD aPTT Coag (Bld) [Time] 24.1 s Normal 20.5-30.5 [facility] Comment on above: Result Comment: IV Heparin Therapy Range: 48.6-77.8 Performed By: #### H H, BMPX #### [place] [address] [employer] Department Manager: Luis Solis MD aPTT Coag (Bld) [Time] 22.6 s Normal 20.5-30.5 [facility] Comment on above: Result Comment: IV Heparin Therapy Range: 48.6-77.8 Performed By: #### H H, BMPX #### [place] [address] [employer] Department Manager: Luis Solis MD Basic Metab w/rfx MGon 09-28 Anion gap [Moles/Vol] 10 mmol/L Normal 9-17 [facility] Comment on above: Performed By: #### R CHITO, BMPX #### [facility] [address] [place] [address] [employer] Department Manager: Luis Solis MD Calcium [Mass/Vol] 7.6 mg/dL Low 8.6-10.4 [facility] Comment on above: Performed By: #### R CHITO, BMPX #### [facility] [address] [place] [address] [employer] Department Manager: Luis Solis MD Chloride [Moles/Vol] 107 mmol/L Normal 98-107 [facility] Comment on above: Performed By: #### R ZAINABEC, BMPX #### [facility] [place] [address] [employer] Department Manager: Luis Solis MD CO2 [Moles/Vol] 23 mmol/L Normal 20-31 [facility] Comment on above: Performed By: #### R ZAINABEC, BMPX #### [facility] [address] [place] [address] 83388 [employer] Department Manager: Luis Solis MD Creatinine [Mass/Vol] 1.33 mg/dL High 0.50-0.90 [facility] Comment on above: Performed By: #### R CHITO, BMPX #### [address] [address] [employer] Department Manager: Luis Solis MD GFR/1.73 sq M.predicted among non-blacks MDRD (S/P/Bld) [Vol rate/Area] 41 mL/min/{1.73_m2} Low >60 [facility] Comment on above: Result Comment: Effective [...] By: #### R CHITO, BMPX #### [facility] [address] [place] [address] 83352 [employer] Department Manager: Luis Solis MD Glucose [Mass/Vol] 243 mg/dL High 70-99 [facility] Comment on above: Performed By: #### R ZAINABEC, BMPX #### [facility] [address] [place] [address] 64002 [employer] Department Manager: Luis Solis MD Potassium [Moles/Vol] 4.5 mmol/L Normal 3.7-5.3 [facility] Comment on above: Performed By: #### R CHITO, BMPX #### [facility] [address] [place] [address] 35893 [employer] Department Manager: Luis Solis MD Sodium [Moles/Vol] 140 mmol/L Normal 135-144 [facility] Comment on above: Performed By: #### R CHITO, BMPX #### [facility] [address] [place] [address] 81691 [employer] Department Manager: Luis Solis MD Urea nitrogen [Mass/Vol] 21 mg/dL Normal 8-23 [facility] Comment on above: Performed By: #### R CHITO, BMPX #### [facility] [address] [place] [address] 83344 [employer] Department Manager: Luis Solis MD Brain Natri. Peptideon 09-28 Natriuretic peptide B (Bld) [Mass/Vol] 5275 pg/mL High <300 [facility] Comment on above: Result Comment: An age-independent cutoff point of 300 pg/ml has a 98% negative predictive value excluding acute heart failure. Performed By: #### H H, BMPX #### [facility] [address] [place] [address] 95155 [employer] Department Manager: Luis Solis MD C-Reactive Proteinon 022 CRP [Mass/Vol] 48.0 mg/L High 0.0-5.0 [facility] Comment on above: Performed By: #### R CHITO, BMPX #### [facility] [address] [place] [address] 88363 [employer] Department Manager: Luis Solis MD CBC with Diffon 09-28-2022 Abs. Basophil 0.06 k/uL Normal 0.00-0.20 [facility] Comment on above: Performed By: #### H H, BMPX #### [facility] [address] [place] [address] 11286 [employer] Department Manager: Luis Solis MD Abs.Imm.Granulocy te 0.16 k/uL Normal 0.00-0.30 [facility] Comment on above: Performed By: #### H H, BMPX #### [address] [address] [employer] Manager: Luis Solis MD Abs.Neutrophil (Seg) 10.78 k/uL High 1.50-8.10 [facility] Comment on above: Performed By: #### H H, BMPX #### [address] [address] [employer] Department Manager: Luis Solis MD Basophils/100 WBC (Bld) 1 % Normal 0-2 [facility] Comment on above: Performed By: #### H H, BMPX #### [address] [address] [employer] Department Manager: Luis Solis MD Eosinophils (Bld) [#/Vol] 0.20 10*3/uL Normal 0.00-0.44 [facility] Comment on above: Performed By: #### H H, BMPX #### [address] [address] [employer] Department Manager: Luis Solis MD Eosinophils/100 WBC (Bld) 2 % Normal 1-4 [facility] Comment on above: Performed By: #### H H, BMPX #### [address] [address] [employer] Manager: Luis Solis MD Erythrocyte distribution width (RBC) [Ratio] 16.7 % High 11.8-14.4 [facility] Comment on above: Performed By: #### H H, BMPX #### [facility] [address] [place] [address]55 [employer] Department Manager: Luis Solis MD Hematocrit (Bld) [Volume fraction] 27.2 % Low 36.3-47.1 [facility] Comment on above: Performed By: #### H H, BMPX #### [place] [address] [employer] Manager: Luis Solis MD Hemoglobin (Bld) [Mass/Vol] 8.1 g/dL Low 11.9-15.1 [facility] Comment on above: Performed By: #### H H, BMPX #### [facility] [address] [place] [address] [employer] Department Manager: Luis Solis MD Immature granulocytes/100 WBC (Bld) 1 % High 0 [facility] Comment on above: Performed By: #### H H, BMPX #### [place] [address] [employer] Manager: Luis Solis MD Lymphocytes (Bld) [#/Vol] 0.74 10*3/uL Low 1.10-3.70 [facility] Comment on above: Performed By: #### H H, BMPX #### [place] [address] [employer] Department Manager: Luis Solis MD Lymphocytes/100 WBC (Bld) 6 % Low 24-43 [facility] Comment on above: Performed By: #### H H, BMPX #### [place] [address] [employer] Department Manager: Luis Solis MD MCH (RBC) [Entitic mass] 26.9 pg Normal 25.2-33.5 [facility] Comment on above: Performed By: #### H H, BMPX #### [facility] [address] [place] [address] [employer] Department Manager: Luis Solis MD MCHC (RBC) [Mass/Vol] 29.8 g/dL Normal 28.4-34.8 [facility] Comment on above: Performed By: #### H H, BMPX #### [address] [address] [employer] Manager: Luis Solis MD MCV (RBC) [Entitic vol] 90.4 fL Normal 82.6-102.9 [facility] Comment on above: Performed By: #### H H, BMPX #### [address] [address] [employer] Manager: Luis Solis MD Monocytes (Bld) [#/Vol] 0.78 10*3/uL Normal 0.10-1.20 [facility] Comment on above: Performed By: #### H H, BMPX #### [address] [address] [employer] Manager: Luis Solis MD Monocytes/100 WBC (Bld) 6 % Normal 3-12 [facility] Comment on above: Performed By: #### H H, BMPX #### [address] [address] [employer] Manager: Luis Solis MD Neutrophil (Seg) 84 % High 36-65 [facility] Comment on above: Performed By: #### H H, BMPX #### [address] [address] [employer] Manager: Luis Solis MD NRBC Automated 0.2 per 100 WBC High 0.0 [facility] Comment on above: Performed By: #### H H, BMPX #### [address] [address] [employer] Manager: Luis Solis MD Platelet mean volume (Bld) [Entitic vol] 9.9 fL Normal 8.1-13.5 [facility] Comment on above: Performed By: #### H H, BMPX #### [address] [address] [employer] Manager: Luis Solis MD Platelets (Bld) [#/Vol] 391 10*3/uL Normal 138-453 [facility] Comment on above: Performed By: #### H H, BMPX #### [facility] [place] [address] [employer] Department Manager: Luis Solis MD RBC (Bld) [#/Vol] 3.01 10*6/uL Low 3.95-5.11 [facility] Comment on above: Performed By: #### H H, BMPX #### [facility] [address] [place] [address]25 [employer] Department Manager: Luis Solis MD RBC morphology finding Nom (Bld) ANISOCYTOSIS PRESENT Normal [facility] Comment on above: Performed By: #### H H, BMPX #### [facility] [address] [place] [address] [employer] Manager: Luis Solis MD WBC (Bld) [#/Vol] 12.7 10*3/uL High 3.5-11.3 [facility] Comment on above: Performed By: #### H H, BMPX #### [facility] [address] [place] [address] [employer] Department Manager: Luis Solis MD CT CHEST PULMONARY [...] Matthew Chong MD 09/28/22 Final result Normal [facility] Comp Metabolic Profon 2021 Albumin [Mass/Vol] 3.5 g/dL Normal 3.5-5.2 [facility] Comment on above: Performed By: #### H H, BMPX #### [address] [address] [employer] Manager: Luis Solis MD Albumin/Glob Ratio 0.9 Low 1.0-2.5 [facility] Comment on above: Performed By: #### H H, BMPX #### [address] [address] [employer] Manager: Luis Solis MD Alkaline Phos 104 U/L Normal 35-104 [facility] Comment on above: Performed By: #### H H, BMPX #### [address] [address] [employer] Manager: Luis Solis MD ALT [Catalytic activity/Vol] 7 U/L Normal 5-33 [facility] Comment on above: Performed By: #### H H, BMPX #### [address] [address] [employer] Manager: Luis Solis MD Anion gap [Moles/Vol] 13 mmol/L Normal 9-17 [facility] Comment on above: Performed By: #### H H, BMPX #### [address] [address] [employer] Manager: Luis Solis MD AST [Catalytic activity/Vol] 15 U/L Normal <32 [facility] Comment on above: Performed By: #### H H, BMPX #### [address] [address] [employer] Manager: Luis Solis MD Bilirubin [Mass/Vol] 0.5 mg/dL Normal 0.3-1.2 [facility] Comment on above: Performed By: #### H H, BMPX #### [facility] [address] [place] [address] [employer] Manager: Luis Solis MD Calcium [Mass/Vol] 8.5 mg/dL Low 8.6-10.4 [facility] Comment on above: Performed By: #### H H, BMPX #### [facility] [address] [place] [address] [employer] Department Manager: Luis Solis MD Chloride [Moles/Vol] 102 mmol/L Normal 98-107 [facility] Comment on above: Performed By: #### H H, BMPX #### [facility] [address] [place] [address] [employer] Department Manager: Luis Solis MD CO2 [Moles/Vol] 24 mmol/L Normal 20-31 [facility] Comment on above: Performed By: #### H H, BMPX #### [facility] [address] [place] [address] [employer] Manager: Luis Solis MD Creatinine [Mass/Vol] 1.62 mg/dL High 0.50-0.90 [facility] Comment on above: Performed By: #### H H, BMPX #### [address] [address] [employer] Manager: Luis Solis MD GFR/1.73 sq M.predicted among non-blacks MDRD (S/P/Bld) [Vol rate/Area] 33 mL/min/{1.73_m2} Low >60 [facility] Comment on above: Result Comment: Effective [...] Performed By: #### H H, BMPX #### [address] [address] [employer] Manager: Luis Solis MD Glucose [Mass/Vol] 272 mg/dL High 70-99 [facility] Comment on above: Performed By: #### H H, BMPX #### [facility] [address] [place] [address] [employer] Manager: Luis Solis MD Potassium [Moles/Vol] 4.4 mmol/L Normal 3.7-5.3 [facility] Comment on above: Performed By: #### H H, BMPX #### [facility] [address] [place] [address] [employer] Manager: Luis Solis MD Protein [Mass/Vol] 7.3 g/dL Normal 6.4-8.3 [facility] Comment on above: Performed By: #### H H, BMPX #### [facility] [address] [place] [address] [employer] Manager: Luis Solis MD Sodium [Moles/Vol] 139 mmol/L Normal 135-144 [facility] Comment on above: Performed By: #### H H, BMPX #### [facility] [address] [place] [address] [employer] Manager: Luis Solis MD Urea nitrogen [Mass/Vol] 22 mg/dL Normal 8-23 [facility] Comment on above: Performed By: #### H H, BMPX #### [facility] [address] [place] [address] [employer] Manager: Luis Solis MD Lactate, Sepsison 09-28-2022 Lactic Acid,Sep Wbld 0.6 mmol/L Normal 0.5-1.9 [facility] Comment on above: Performed By: #### R EJEC, BMPX #### [facility] [address] [place] [address] [employer] Manager: Luis Solis MD Lactic Acid,Sep Wbld 1.5 mmol/L Normal 0.5-1.9 [facility] Comment on above: Performed By: #### H H, BMPX #### [address] [address] [employer] Department Manager: Luis Solis MD Legionella Ag, Uron 09-28-20 Legionella Ag, Ur Negative Normal NEG [facility] Comment on above: Result Comment: L. p neumophila serogroup 1 antigen not detected. A negative result does not exclude infection with Leginella pnemophila serogroup 1 nor does it rule out other microbial-caused respiratory infections of disease caused by other serogroups of Legionella pneumophila. Performed By: #### H H, BMPX #### [place] [id number] [employer] Department Manager: Luis Solis MD PTon 09-28-2022 INR Coag (PPP) [Relative time] 1.1 {INR} Normal [facility] Comment on above: Result Comment: Therapeutic Range: Moderate Anticoagulant Intensity: INR = 2.0-3.0 High Anticoagulant Intensity: INR = 2.5-3.5 Performed By: #### H H, BMPX #### [address] [address] [employer] Department Manager: Luis Solis MD PT Coag (PPP) [Time] 11.8 s Normal 9.1-12.3 [facility] Comment on above: Performed By: #### H H, BMPX #### [place] [address] [employer] Manager: Luis Solis MD [id number] 09-28-2022 SARS-CoV-2 (COVID-19) RNA SIRI+probe Ql (Unsp spec) Not detected Normal NOTDET [facility] Comment on above: Result Comment: Rapid [...] management decisions. Fact sheet for Healthcare Providers: https://www.fda.gov/media/219679/download Fact sheet for Patients: https://www.fda.gov/media/331910/download Methodology: Isothermal Nucleic Acid Amplification Performed By: #### Jeff DALE, BMPX #### [facility] [address] [place] [address] [employer] Department Manager: Luis Solis MD Sedimentation Rateon 022 Sedimentation Rate 61 mm/Hr High 0-30 [facility] Comment on above: Performed By: #### Jeff DALE, BMPX #### [facility] [address] [place] [address] [employer] Department Manager: Luis Solis MD Strep pneum Ag,CSF/Uron 09-15 Strep pneum Ag Negative Normal [facility] Comment on above: Result Comment: Stre p pneumoniae antigen not detected Performed By: #### Jeff DALE, BMPX #### [facility] [address] [place] [address] [employer] Manager: Luis Solis MD Strep pneu Ag Source .URINE Normal [facility] Comment on above: Performed By: #### R CHITO, BMPX #### [facility] [address] [place] [address] [employer] Department Manager: Luis Solis MD Troponinon 09-28-2022 Troponin, High Sens 222 ng/L Critically high 0-14 [facility] Comment on above: Result Comment: High Sensitivity Troponin values cannot be compared with other Troponin methodologies. Patients with high levels of Biotin oral intake (i.e >5mg/day) may have falsely decreased Troponin levels. Samples collected within 8 hours of biotin intake may require additional information for diagnosis. Performed By: #### R EJEC, BMPX #### [facility] [address] [place] [address] [employer] Manager: Luis Solis MD Troponin, High Sens 219 ng/L Critically high 0-14 [facility] Comment on above: Result Comment: High Sensitivity Troponin values cannot be compared with other Troponin methodologies. Patients with high levels of Biotin oral intake (i.e >5mg/day) may have falsely decreased Troponin levels. Samples collected within 8 hours of biotin intake may require additional information for diagnosis. Performed By: #### H H, BMPX #### [address] [address] [employer] Department Manager: Luis Solis MD Type + Screenon 09-28-2022 Type + Screen Sample Expiration 10/01/2022,2359 Arm Band Number [id number] ABO/Rh(D) O NEGATIVE Antibody Screen NEGATIVE Normal [facility] Comment on above: Performed By: #### H H, BMPX #### [address] [address] [employer] Manager: Luis Solis MD Urinalysis w/ Microon 2021 Bacteria MANY Abnormal NONE [facility] Comment on above: Performed By: #### H H, BMPX #### [facility] [address] [place] [address] [employer] Manager: Luis Solis MD Bilirubin, SemiQt,Ur Negative Normal NEG [facility] Comment on above: Performed By: #### H H, BMPX #### [facility] [address] [place] [address] [employer] Department Manager: Luis Solis MD Blood, Urine Negative Normal NEG [facility] Comment on above: Performed By: #### H H, BMPX #### [address] [address] [employer] Department Manager: Luis Solis MD Casts 0 TO 2 HYALINE Normal 0-8 [facility] Comment on above: Result Comment: Refe rence range defined for non-centrifuged specimen. Performed By: #### H H, BMPX #### [address] [address] [employer] Manager: Luis Solis MD Clarity (U) Cloudy Abnormal CLEAR [facility] Comment on above: Performed By: #### H H, BMPX #### [address] [address] [employer] Manager: Luis Solis MD Color (U) Yellow Normal YEL [facility] Comment on above: Performed By: #### H H, BMPX #### [address] [address] [employer] Department Manager: Luis Solis MD Epithelial cells LM Ql (Urine sed) 5 TO 10 Normal 0-5 [facility] Comment on above: Performed By: #### H H, BMPX #### [address] [address] [employer] Manager: Luis Solis MD Glucose Ql (U) 2+ Abnormal NEG [facility] Comment on above: Performed By: #### H H, BMPX #### [address] [address] [employer] Department Manager: Luis Solis MD Ketones Ql (U) TRACE Abnormal NEG [facility] Comment on above: Performed By: #### H H, BMPX #### [address] [address] [employer] Manager: Luis Solis MD Leukocyte esterase Test strip Ql (U) TRACE Abnormal NEG [facility] Comment on above: Performed By: #### H H, BMPX #### [address] [address] [employer] Department Manager: Luis Solis MD Nitrite,Ur Negative Normal NEG [facility] Comment on above: Performed By: #### H H, BMPX #### [address] [address] [employer] Department Manager: Luis Solis MD PH,Ur 5.5 Normal 5.0-8.0 [facility] Comment on above: Performed By: #### H H, BMPX #### [address] [address] [employer] Department Manager: Luis Solis MD Protein Ql (U) TRACE Abnormal NEG [facility] Comment on above: Performed By: #### H H, BMPX #### [address] [address] [employer] Department Manager: Luis Solis MD Spec. Reynolds,Ur 1.018 Normal 1.005-1.03 0 [facility] Comment on above: Performed By: #### H H, BMPX #### [address] [address] [employer] Department Manager: Luis Solis MD Urine RBC's 0 TO 2 Normal 0-4 [facility] Comment on above: Result Comment: Refe rence range defined for non-centrifuged specimen. Performed By: #### H H, BMPX #### [address] [address] [employer] Manager: Luis Solis MD Urine WBC's 10 TO 20 Normal 0-5 [facility] Comment on above: Performed By: #### H H, BMPX #### [address] [address] [employer] Department Manager: Luis Solis MD Urobilinogen,Ur Normal Normal NORM [facility] Comment on above: Performed By: #### H H, BMPX #### [facility] [address] [place] [address] [employer] Department Manager: Luis Solis MD XR CHEST PORTABLEon [...] Garth Herr MD 09/28/22 Final result Normal [facility] CT BRAIN WO CONTRASTon 03-31 CT BRAIN WO CONTRAST [facility] Department of Radiology [address] [place] [id number] Patient Name: CUCA DEE : 1945 Sex: F Age: Race: White Pt. 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 Electronically signed: Berry Wyman. Transcribed by: [email or web address], User Resident: Electronically Signed by: BERRY WYMAN @ 03/31/2022 03:46 PM Normal [facility] Comment on above: Order Comment: hydro cephalus s/p vp research shunt TELEPHONE ANSWERING SERVICE OPERATOR SHUNT SERIESon 03-31-2022 TELEPHONE ANSWERING SERVICE OPERATOR SHUNT SERIES [facility] Department of Radiology [address] [place] [address] Patient Name: CUCA DEE : 1945 [...] , Ordering Provider - A DIANE MSN ARCHITECT NAVAL , Exam: TELEPHONE ANSWERING SERVICE OPERATOR SHUNT SERIES TELEPHONE ANSWERING SERVICE OPERATOR SHUNT SERIES HISTORY: Shunt evaluation. COMPARISON: [...] described. Electronically signed: Lam Ray. Transcribed by: [email or web address], User Resident: Electronically Signed by: LAM RAY @ 04/03/2022 08:50 AM Normal [facility] Comment on above: Order Comment: , .br E.brEr/o kinking or discontinuity of shunt tubing and do image perpendicularl to valve to check OP , .brr/o kinking or discontinuity of shunt tubing and do image perpendicularl to valve to check OP , , , Ordering Provider - A DIANE MSN ARCHITECT [employer] , Lipid Profileon 03-26-2021 Cholesterol [Mass/Vol] 117 mg/dL Normal <200 [facility] Comment on above: Result Comment: Cholesterol Guidelines: <200 Desirable 200-240 Borderline >240 Undesirable Performed By: #### L IPR #### [facility] [address] [place] [address] [employer] Department Manager: Luis Solis MD Cholesterol in HDL [Mass/Vol] 39 mg/dL Low >40 [facility] Comment on above: Result Comment: HDL Guidelines: <40 Undesirable 40-59 Borderline >59 Desirable Performed By: #### L IPR #### [facility] [address] [place] [address] [employer] Department Manager: Luis Solis MD Cholesterol in LDL [Mass/Vol] 62 mg/dL Normal 0-130 [facility] Comment on above: Result Comment: LDL Guidelines: <100 Desirable 100-129 Near to/above Desirable 130-159 Borderline >159 Undesirable Direct (measured) LDL and calculated LDL are not interchangeable tests. Performed By: #### L IPR #### [address] [address] [employer] Department Manager: Luis Solis MD Cholesterol.total /Cholesterol in HDL [Mass ratio] 3.0 {ratio} Normal <5 [facility] Comment on above: Performed By: #### L IPR #### [address] [address] [employer] Department Manager: Luis Solis MD Triglyceride [Mass/Vol] 79 mg/dL Normal <150 [facility] Comment on above: Result Comment: Triglyceride Guidelines: <150 Desirable 150-199 Borderline 200-499 High >499 Very high Based on AHA Guidelines for fasting triglyceride, August 2012. Performed By: #### L IPR #### [facility] [address] [place] [address] [employer] Department Manager: Luis Solis MD Cholesterol,VLDL NOT REPORTED Normal - [facility] Comment on above: Performed By: #### L IPR #### [facility] [address] [place] [address] [employer] Department Manager: Luis Solis MD Uric Acidon 03-24-2021 Urate [Mass/Vol] 6.8 mg/dL High 2.4-5.7 [facility] Comment on above: Performed By: #### U RI #### [facility] [address] [place], [place] [id number] [employer] Department Manager: Giovanny Carpenter MD Uric AcidOrdered By: Lakeshia Henriquez on 03-24-2021 Interpretation and review of laboratory results Abnormal [facility] Phone: Urate [Mass/Vol] 6.8 mg/dL High 2.4 - 5.7 mg/dL [facility] Phone: CBC AUTO DIFFon 03-20-2021 BASO # 0.0 103/ul Normal 0.0-0.1 [facility] Comment on above: Performed By: #### C BC #### [facility] [address] [place], [place] [address] Ghulam Amy Basophils/100 WBC (Bld) 0.4 % Normal 0.2-2.0 [facility] Comment on above: Performed By: #### C BC #### [facility] [address] [place], [place] [address] Ghulam Amy EO # 0.4 103/ul Normal 0.0-0.7 [facility] Comment on above: Performed By: #### C BC #### [facility] [address] [place], [place] [address] Ghulam Amy Eosinophils/100 WBC (Bld) 4.3 % Normal 0.9-7.0 [facility] Comment on above: Performed By: #### C BC #### [facility] [address] [place], [place] [address] Ghulam Amy Erythrocyte distribution width (RBC) [Ratio] 15.9 % Critically high 11.0-15.0 [facility] Comment on above: Performed By: #### C BC #### [facility] [address] [id number] Ghulam Amy Hematocrit (Bld) [Volume fraction] 28.5 % Critically low 36.0-48.0 [facility] Comment on above: Performed By: #### C BC #### [facility] [address] [id number] Ghulam Amy Hemoglobin (Bld) [Mass/Vol] 8.9 g/dL Critically low 12.0-16.0 [facility] Comment on above: Performed By: #### C BC #### [facility] [address] [id number] Ghulam Amy IG # 0.04 10e3/ul Critically high 0.00-0.03 [facility] Comment on above: Performed By: #### C BC #### [facility] [address] [place] [address] Ghulam Amy IG % 0.4 % Normal 0.0-0.5 [facility] Comment on above: Performed By: #### C BC #### [facility] [address] [place] [address] Ghulam Amy LYMPH # 2.2 103/ul Normal 1.2-3.8 [facility] Comment on above: Performed By: #### C BC #### [facility] [address] [place] [address] Ghulamgabriela Reyes Lymphocytes/100 WBC (Bld) 21.9 % Normal 20.5-60.0 [facility] Comment on above: Performed By: #### C BC #### [facility] [address] [place], [place] [address] Ghulam Reyes MANUAL DIFF REQ NO Normal [facility] Comment on above: Performed By: #### C BC #### [facility] [address] [place], [place] [address] Ghulam Amy MCH (RBC) [Entitic mass] 27.1 pg Normal 26.7-34.0 [facility] Comment on above: Performed By: #### C BC #### [facility] [address] [place], [place] [address] Ghulam Amy MCHC (RBC) [Mass/Vol] 31.2 g/dL Normal 29.9-35.2 [facility] Comment on above: Performed By: #### C BC #### [facility] [address] [place], [place] [address] Ghulam Amy MCV (RBC) [Entitic vol] 86.9 fL Normal 81.0-99.0 [facility] Comment on above: Performed By: #### C BC #### [facility] [address] [place], [place] [address] Ghulam Reyes MONO # 1.0 103/ul Critically high 0.3-0.8 [facility] Comment on above: Performed By: #### C BC #### [facility] [address] [place], [place] [address] Ghulamgabriela Sotoen Monocytes/100 WBC (Bld) 10.1 % Normal 1.7-12.0 [facility] Comment on above: Performed By: #### C BC #### [facility] [address] [place] [address] Ghulamgabriela Sotoen NEUT # 6.2 103/ul Normal 1.4-6.5 [facility] Comment on above: Performed By: #### C BC #### [facility] [address] [place] [address] Ghulam Reyes Neutrophils/100 WBC (Bld) 62.9 % Normal 43.0-75.0 [facility] Comment on above: Performed By: #### C BC #### [facility] [address] [place], [place] [address] Ghulam Reyes Platelet mean volume (Bld) [Entitic vol] 10.2 fL Normal 9.5-13.5 [facility] Comment on above: Performed By: #### C BC #### [facility] [address] [place] [address] Ghulam Amy PLT 289 103/ul Normal 150-450 [facility] Comment on above: Performed By: #### C BC #### [facility] [address] [place], [place] [address] Ghulam Amy RBC 3.28 106/ul Critically low 4.20-5.40 [facility] Comment on above: Performed By: #### C BC #### [facility] [address] [place] [address] Ghulam Amy WBC 9.9 103/ul Normal 4.0-11.0 [facility] Comment on above: Performed By: #### C BC #### [facility] [address] [id number] Ghulam Reyes PROF 14(COMP METB)on 021 Albumin [Mass/Vol] 2.8 g/dL Critically low 3.5-5.0 [facility] Comment on above: Performed By: #### C MP #### [facility] [address] [id number] Ghulam Amy Albumin/Globulin [Mass ratio] 0.6 {ratio} Normal [facility] Comment on above: Performed By: #### C MP #### [facility] [address] [id number] Ghulam Amy ALP [Catalytic activity/Vol] 95 U/L Normal 38-126 [facility] Comment on above: Performed By: #### C MP #### [facility] [address] [place] [address] Ghulam Amy ALT [Catalytic activity/Vol] 16 U/L Normal 9-52 [facility] Comment on above: Performed By: #### C MP #### [facility] [address] [place], [place] [address] Ghulam Amy Anion gap [Moles/Vol] 11.6 mmol/L Normal [facility] Comment on above: Performed By: #### C MP #### [facility] [address] [place] [address] Ghulam Amy AST [Catalytic activity/Vol] 13 U/L Critically low 14-36 [facility] Comment on above: Performed By: #### C MP #### [facility] [address] [place], [place] [address] Ghulam Amy Bilirubin [Mass/Vol] 0.4 mg/dL Normal 0.2-1.3 [facility] Comment on above: Performed By: #### C MP #### [facility] [address] [place], [place] [address] Ghulam Amy Calcium [Mass/Vol] 8.9 mg/dL Normal 8.4-10.2 [facility] Comment on above: Performed By: #### C MP #### [facility] [address] [id number] Ghulam Amy Chloride [Moles/Vol] 103 mmol/L Normal 98-107 [facility] Comment on above: Performed By: #### C MP #### [facility] [address] [phone] Ghulam Amy CO2 [Moles/Vol] 27.4 mmol/L Normal 22.0-30.0 [facility] Comment on above: Performed By: #### C MP #### [facility] [address] [address] Ghulam Amy Creatinine [Mass/Vol] 1.86 mg/dL Critically high 0.52-1.04 [facility] Comment on above: Performed By: #### C MP #### [facility] [address] [address] Ghulam Amy EGFR-AF BRUNEIAN 32 mL/min/1.73m2 Critically low >=60 [facility] Comment on above: Performed By: #### C MP #### [facility] [address] [address] Ghulam Amy EGFR-NON AF BRUNEIAN 26 mL/min/1.73m2 Critically low >=60 [facility] Comment on above: Performed By: #### C MP #### [facility] [address] [id number] Ghulam Amy Globulin (S) [Mass/Vol] 4.6 g/dL Normal [facility] Comment on above: Performed By: #### C MP #### [facility] [address] [id number] Ghulam Amy Glucose [Mass/Vol] 174 mg/dL Critically high 74-106 [facility] Comment on above: Performed By: #### C MP #### [facility] [address] [phone] Ghulam Amy Potassium [Moles/Vol] 4.0 mmol/L Normal 3.4-5.0 [facility] Comment on above: Performed By: #### C MP #### [facility] [address] [place], [place] [address] Ghulam Amy Protein [Mass/Vol] 7.4 g/dL Normal 6.1-8.2 [facility] Comment on above: Performed By: #### C MP #### [facility] [address] [place] [address] Ghulam Amy Sodium [Moles/Vol] 138 mmol/L Normal 137-145 [facility] Comment on above: Performed By: #### C MP #### [facility] [address] [place] [address] Ghulam May Urea nitrogen [Mass/Vol] 24.0 mg/dL Critically high 7.0-17.0 [facility] Comment on above: Performed By: #### C MP #### [facility] [address] [place] [address] Ghulam Amy Urea nitrogen/Creatini ne [Mass ratio] 12.9 mg/mg Normal [facility] Comment on above: Performed By: #### C MP #### [facility] [address] [place] [address] Ghulam Amy RESPIRATORY PANEL PLUSon Adenovirus Not detected Normal NOT DETECTED [facility] Comment on above: Performed By: #### R SPLUS #### [facility] [address] [place] [address] Ghulam Amy B. Parapertusis Not detected Normal NOT DETECTED [facility] Comment on above: Performed By: #### R SPLUS #### [facility] [address] [place] [address] Ghulam Amy B. Pertussis Not detected Normal NOT DETECTED [facility] Comment on above: Performed By: #### R SPLUS #### [facility] [address] [place] [address] Ghulam Amy Chlamydia Pneumoniae Not detected Normal NOT DETECTED [facility] Comment on above: Performed By: #### R SPLUS #### [facility] [address] [place] [address] Ghulam Amy Coronavirus 229E Not detected Normal NOT DETECTED [facility] Comment on above: Performed By: #### R SPLUS #### [facility] [address] [place] [address] Ghulam Amy Coronavirus HKU1 Not detected Normal NOT DETECTED [facility] Comment on above: Performed By: #### R SPLUS #### [facility] [address] [place] [address] Ghulam Amy Coronavirus NL63 Not detected Normal NOT DETECTED [facility] Comment on above: Performed By: #### R SPLUS #### [facility] [address] [place] [address] Ghulam Amy Coronavirus OC43 Not detected Normal NOT DETECTED [facility] Comment on above: Performed By: #### R SPLUS #### [facility] [address] [place] [address] Ghulam Amy Influenza A H1 2009 Not detected Normal NOT DETECTED [facility] Comment on above: Performed By: #### R SPLUS #### [facility] [address] [place] [address] Ghulam Amy Influenza B Not detected Normal NOT DETECTED [facility] Comment on above: Performed By: #### R SPLUS #### [facility] [address] [place] [address] Ghulam Amy Metapneumovirus Not detected Normal NOT DETECTED [facility] Comment on above: Performed By: #### R SPLUS #### [facility] [address] [place] [address] Ghulam Amy Mycoplas. Pneumoniae Not detected Normal NOT DETECTED [facility] Comment on above: Performed By: #### R SPLUS #### [facility] [address] [place] [address] Ghulam Amy Parainfluenza 1 Not detected Normal NOT DETECTED [facility] Comment on above: Performed By: #### R SPLUS #### [facility] [address] [place] [address] Ghulam Amy Parainfluenza 2 Not detected Normal NOT DETECTED [facility] Comment on above: Performed By: #### R SPLUS #### [facility] [address] [place] [address] Ghulam Amy Parainfluenza 3 Not detected Normal NOT DETECTED [facility] Comment on above: Performed By: #### R SPLUS #### [facility] [address] [place] [address] Ghulam Amy Parainfluenza 4 Not detected Normal NOT DETECTED [facility] Comment on above: Performed By: #### R SPLUS #### [facility] [address] [place] [address] Ghulam Amy Rhino/Enterovirus Not detected Normal NOT DETECTED [facility] Comment on above: Performed By: #### R SPLUS #### [facility] [address] [place] [address] Ghulam Amy RP2 Header 1 RESPIRATORY PANEL: VIRUSES Normal [facility] Comment on above: Performed By: #### R SPLUS #### [facility] [address] [place] [address] Ghulam Amy RP2 Header 2 RESPIRATORY PANEL: BACTERIA Normal [facility] Comment on above: Performed By: #### R SPLUS #### [facility] [address] [place] [address] Ghulam Amy RP2 Header 4 EUA SEE BELOW Normal [facility] Comment on above: Result Comment: This test is not yet approved or cleared by the [place] FDA. When there are no FDA-approved or cleared tests available, and other criteria are met, FDA can make tests available under an emergency access mechanism called an Emergency Use Authorization (EUA). The EUA for this test is supported by the Subsorter of Health and Human Service?s (HHS?s) declaration [...] used). Performed By: #### R SPLUS #### [facility] [address] [place] [address] Ghulam Amy RSV Not detected Normal NOT DETECTED [facility] Comment on above: Performed By: #### R SPLUS #### [facility] [address] [place] [address] Ghulam Reyes SARS-CoV-2 (COVID-19) RNA SIRI+probe Ql (Unsp spec) Not detected Normal NOT DETECTED [facility] Comment on above: Performed By: #### R SPLUS #### [facility] [address] [place] [address] Ghulam Reyes URIC ACID SERUMon 03-20-2021 Urate [Mass/Vol] 7.4 mg/dL Critically high 2.5-6.2 [facility] Comment on above: Performed By: #### U GIRISH #### [facility] [address] [place] [address] Ghulam Reyes CBC AUTO DIFFon 03-19-2021 BASO # 0.0 103/ul Normal 0.0-0.1 [facility] Comment on above: Performed By: #### C BC #### [facility] [address] [place] [address] Ghulam Reyes Basophils/100 WBC (Bld) 0.3 % Normal 0.2-2.0 [facility] Comment on above: Performed By: #### C BC #### [facility] [address] [place] [address] Ghulam Reyes EO # 0.1 103/ul Normal 0.0-0.7 [facility] Comment on above: Performed By: #### C BC #### [facility] [address] [place] [address] Ghulam Reyes Eosinophils/100 WBC (Bld) 0.9 % Normal 0.9-7.0 [facility] Comment on above: Performed By: #### C BC #### [facility] [address] [place] [address] Ghulam Reyes Erythrocyte distribution width (RBC) [Ratio] 15.5 % Critically high 11.0-15.0 [facility] Comment on above: Performed By: #### C BC #### [facility] [address] [place] [address] Ghulam Reyes Hematocrit (Bld) [Volume fraction] 28.1 % Critically low 36.0-48.0 [facility] Comment on above: Performed By: #### C BC #### [facility] [address] [id number] Ghulam May Hemoglobin (Bld) [Mass/Vol] 8.9 g/dL Critically low 12.0-16.0 [facility] Comment on above: Performed By: #### C BC #### [facility] [address] [id number] Ghulam Amy IG # 0.05 10e3/ul Critically high 0.00-0.03 [facility] Comment on above: Performed By: #### C BC #### [facility] [address] [id number] Ghulam Amy IG % 0.5 % Normal 0.0-0.5 [facility] Comment on above: Performed By: #### C BC #### [facility] [address] [place] [address] Ghulam Amy LYMPH # 1.9 103/ul Normal 1.2-3.8 [facility] Comment on above: Performed By: #### C BC #### [facility] [address] [place], [place] [address] Ghulam Amy Lymphocytes/100 WBC (Bld) 17.2 % Critically low 20.5-60.0 [facility] Comment on above: Performed By: #### C BC #### [facility] [address] [place] [address] Ghulam Amy MANUAL DIFF REQ NO Normal [facility] Comment on above: Performed By: #### C BC #### [facility] [address] [place], [place] [address] Ghulam Amy MCH (RBC) [Entitic mass] 27.1 pg Normal 26.7-34.0 [facility] Comment on above: Performed By: #### C BC #### [facility] [address] [place], [place] [address] Ghulam Amy MCHC (RBC) [Mass/Vol] 31.7 g/dL Normal 29.9-35.2 [facility] Comment on above: Performed By: #### C BC #### [facility] [address] [place], [place] [address] Ghulamgabriela Sotoen MCV (RBC) [Entitic vol] 85.4 fL Normal 81.0-99.0 [facility] Comment on above: Performed By: #### C BC #### [facility] [address] [id number] Ghulamgabriela Sotoen MONO # 1.0 103/ul Critically high 0.3-0.8 [facility] Comment on above: Performed By: #### C BC #### [facility] [address] [id number] Ghulam Amy Monocytes/100 WBC (Bld) 9.5 % Normal 1.7-12.0 [facility] Comment on above: Performed By: #### C BC #### [facility] [address] [id number] Ghulam Amy NEUT # 7.7 103/ul Critically high 1.4-6.5 [facility] Comment on above: Performed By: #### C BC #### [facility] [address] [id number] Ghulam Sotoen Neutrophils/100 WBC (Bld) 71.6 % Normal 43.0-75.0 [facility] Comment on above: Performed By: #### C BC #### [facility] [address] [id number] Ghulamgabriela Reyes Platelet mean volume (Bld) [Entitic vol] 10.1 fL Normal 9.5-13.5 [facility] Comment on above: Performed By: #### C BC #### [facility] [address] [place], [place] [address] Ghulam Amy PLT 285 103/ul Normal 150-450 [facility] Comment on above: Performed By: #### C BC #### [facility] [address] [place], [place] [address] Ghulam Amy RBC 3.29 106/ul Critically low 4.20-5.40 [facility] Comment on above: Performed By: #### C BC #### [facility] [address] [place], [place] [address] Ghulam Amy WBC 10.7 103/ul Normal 4.0-11.0 [facility] Comment on above: Performed By: #### C BC #### [facility] [address] [address] Ghulam Reyes MAGNESIUMon 03-19-2021 Magnesium [Mass/Vol] 1.9 mg/dL Normal 1.6-2.3 [facility] Comment on above: Performed By: #### M G ####[facility] [id number] Reyes POINT OF CARE GLUCOSEon Glucose [Mass/Vol] 68 mg/dL Critically low 74-106 [facility] Comment on above: Performed By: #### P OCGLUC #### [facility] [address] [address] Ghulam Reyes Glucose [Mass/Vol] 91 mg/dL Normal 74-106 [facility] Comment on above: Performed By: #### P OCGLUC #### [facility] [address] [address] Ghulam Reyes Glucose [Mass/Vol] 136 mg/dL Critically high 74-106 [facility] Comment on above: Performed By: #### P OCGLUC #### [facility] [address] [address] Ghulam Reyes PROF 14(COMP METB)on 021 Albumin [Mass/Vol] 2.7 g/dL Critically low 3.5-5.0 [facility] Comment on above: Performed By: #### C MP #### [facility] [address] [place] [address] Ghulam Reyes Albumin/Globulin [Mass ratio] 0.6 {ratio} Normal [facility] Comment on above: Performed By: #### C MP #### [facility] [address] [address] Ghulam Reyes ALP [Catalytic activity/Vol] 99 U/L Normal 38-126 [facility] Comment on above: Performed By: #### C MP #### [facility] [address] [place], [place] [address] Ghulam Amy ALT [Catalytic activity/Vol] 14 U/L Normal 9-52 [facility] Comment on above: Performed By: #### C MP #### [facility] [address] [place], [place] [address] Ghulam Amy Anion gap [Moles/Vol] 10.5 mmol/L Normal [facility] Comment on above: Performed By: #### C MP #### [facility] [address] [place] [address] Ghulam Amy AST [Catalytic activity/Vol] 13 U/L Critically low 14-36 [facility] Comment on above: Performed By: #### C MP #### [facility] [address] [place] [address] Ghulam Amy Bilirubin [Mass/Vol] 0.5 mg/dL Normal 0.2-1.3 [facility] Comment on above: Performed By: #### C MP #### [facility] [address] [place] [address] Ghulam Amy Calcium [Mass/Vol] 9.1 mg/dL Normal 8.4-10.2 [facility] Comment on above: Performed By: #### C MP #### [facility] [address] [place] [address] Ghulam Amy Chloride [Moles/Vol] 104 mmol/L Normal 98-107 [facility] Comment on above: Performed By: #### C MP #### [facility] [address] [place], [place] [address] Ghulam Amy CO2 [Moles/Vol] 27.2 mmol/L Normal 22.0-30.0 [facility] Comment on above: Performed By: #### C MP #### [facility] [address] [place], [place] [address] Ghulam Amy Creatinine [Mass/Vol] 1.57 mg/dL Critically high 0.52-1.04 [facility] Comment on above: Performed By: #### C MP #### [facility] [address] [id number] Ghulam Amy EGFR-AF BRUNEIAN 39 mL/min/1.73m2 Critically low >=60 [facility] Comment on above: Performed By: #### C MP #### [facility] [address] [place], [place] [address] Ghulam Amy EGFR-NON AF BRUNEIAN 32 mL/min/1.73m2 Critically low >=60 [facility] Comment on above: Performed By: #### C MP #### [facility] [address] [id number] Ghulam Amy Globulin (S) [Mass/Vol] 4.6 g/dL Normal [facility] Comment on above: Performed By: #### C MP #### [facility] [address] [id number] Ghulam Amy Glucose [Mass/Vol] 209 mg/dL Critically high 74-106 [facility] Comment on above: Performed By: #### C MP #### [facility] [address] [address] Ghulam Amy Potassium [Moles/Vol] 3.7 mmol/L Normal 3.4-5.0 [facility] Comment on above: Performed By: #### C MP #### [facility] [address] [id number] Ghulam Amy Protein [Mass/Vol] 7.3 g/dL Normal 6.1-8.2 [facility] Comment on above: Performed By: #### C MP #### [facility] [address] [id number] Ghulam Amy Sodium [Moles/Vol] 138 mmol/L Normal 137-145 [facility] Comment on above: Performed By: #### C MP #### [facility] [address] [id number] Ghulam Amy Urea nitrogen [Mass/Vol] 28.0 mg/dL Critically high 7.0-17.0 [facility] Comment on above: Performed By: #### C MP #### [facility] [address] [id number] Ghulam Amy Urea nitrogen/Creatini ne [Mass ratio] 17.8 mg/mg Normal [facility] Comment on above: Performed By: #### C MP #### [facility] [address] [place] [address] Ghulam Reyes Vital Signs Date Time Vital Sign Value Performing Clinician Facility 08-03-2025 23:23-0400 Body mass index (BMI) [Ratio] 28.26 kg/m2 Sacha Furlong DO Work Phone: [facility] [place] 08-03-2025 23:23-0400 Body temperature 98.2 [degF] Sacha Furlong DO Work Phone: [facility] 08-03-2025 23:23-0400 Body weight 77.02 kg Sacha Furlong DO Work Phone: [facility] 08-03-2025 23:23-0400 Diastolic blood pressure 93 mm[Hg] Sacha Furlong DO Work Phone: [facility] 08-03-2025 23:23-0400 Heart rate 80 /min Sacha Furlong DO Work Phone: [facility] 08-03-2025 23:23-0400 Respiratory rate 19 /min Sacha Furlong DO Work Phone: [facility] 08-03-2025 23:23-0400 SaO2% (BldA) [Mass fraction] 93 % Sacha Furlong DO Work Phone: [facility] 08-03-2025 23:23-0400 Systolic blood pressure 126 mm[Hg] Sacha Furlong DO Work Phone: [facility] 07-24-2025 23:15-0400 Body mass index (BMI) [Ratio] 30.82 kg/m2 Sacha Furlong DO Work Phone: [facility] 07-24-2025 23:15-0400 Body temperature 97.3 [degF] Sacha Furlong DO Work Phone: [facility] 07-24-2025 23:15-0400 Body weight 84.01 kg Sacha Furlong DO Work Phone: [facility] 07-24-2025 23:15-0400 Diastolic blood pressure 65 mm[Hg] Sacha Furlong DO Work Phone: [facility] 07-24-2025 23:15-0400 Heart rate 78 /min Sacha Furlong DO Work Phone: [facility] 07-24-2025 23:15-0400 Respiratory rate 18 /min Sacha Furlong DO Work Phone: [facility] 07-24-2025 23:15-0400 SaO2% (BldA) [Mass fraction] 94 % Sacha Furlong DO Work Phone: [facility] 07-24-2025 23:15-0400 Systolic blood pressure 137 mm[Hg] Sacha Furlong DO Work Phone: [facility] 07-20-2025 15:33-0400 Body mass index (BMI) [Ratio] 31.12 kg/m2 Sacha Furlong DO Work Phone: [facility] 07-20-2025 15:33-0400 Body temperature 98.49 [degF] Sacha Furlong DO Work Phone: [facility] 07-20-2025 15:33-0400 Body weight 84.82 kg Sacha Furlong DO Work Phone: [facility] 07-20-2025 15:33-0400 Diastolic blood pressure 67 mm[Hg] Sacha Furlong DO Work Phone: [facility] 07-20-2025 15:33-0400 Heart rate 86 /min Sacha Furlong DO Work Phone: [facility] 07-20-2025 15:33-0400 Respiratory rate 18 /min Sacha Furlong DO Work Phone: [facility] 07-20-2025 15:33-0400 SaO2% (BldA) [Mass fraction] 91 % Sacha Furlong DO Work Phone: [facility] 07-20-2025 15:33-0400 Systolic blood pressure 97 mm[Hg] Sacha Furlong DO Work Phone: [facility] 07-10-2025 11:36-0400 Body mass index (BMI) [Ratio] 27.99 kg/m2 Sacha Furlong DO Work Phone: [facility] 07-10-2025 11:36-0400 Body temperature 97.81 [degF] Sacha Furlong DO Work Phone: [facility] 07-10-2025 11:36-0400 Body weight 76.3 kg Sacha Furlong DO Work Phone: [facility] 07-10-2025 11:36-0400 Diastolic blood pressure 71 mm[Hg] Sacha Furlong DO Work Phone: [facility] 07-10-2025 11:36-0400 Heart rate 70 /min Sacha Furlong DO Work Phone: [facility] 07-10-2025 11:36-0400 Respiratory rate 16 /min Sacha Furlong DO Work Phone: [facility] 07-10-2025 11:36-0400 SaO2% (BldA) [Mass fraction] 96 % Sacha Furlong DO Work Phone: [facility] 07-10-2025 11:36-0400 Systolic blood pressure 106 mm[Hg] Sacha Furlong DO Work Phone: [facility] 07-06-2025 16:24-0400 Body height 165.1 cm Sacha Furlong DO Work Phone: [facility] 07-06-2025 16:24-0400 Body temperature 97.5 [degF] Sacha Furlong DO Work Phone: [facility] 07-06-2025 16:24-0400 Diastolic blood pressure 66 mm[Hg] Sacha Furlong DO Work Phone: [facility] 07-06-2025 16:24-0400 Heart rate 67 /min Sacha Furlong DO Work Phone: [facility] 07-06-2025 16:24-0400 Respiratory rate 18 /min Sacha Furlong DO Work Phone: [facility] 07-06-2025 16:24-0400 SaO2% (BldA) [Mass fraction] 95 % Sacha Furlong DO Work Phone: [facility] 07-06-2025 16:24-0400 Systolic blood pressure 113 mm[Hg] Sacha Furlong DO Work Phone: [facility] 07-05-2025 11:00-0400 Body temperature 97.2 [degF] Felix Hallman MD Work Phone: [facility] 07-05-2025 11:00-0400 Diastolic blood pressure 55 mm[Hg] Felix Hallman MD Work Phone: [facility] 07-05-2025 11:00-0400 Heart rate 77 /min Felix Hallman MD Work Phone: [facility] 07-05-2025 11:00-0400 Respiratory rate 17 /min Felix Hallman MD Work Phone: [facility] 07-05-2025 11:00-0400 SaO2% (BldA) [Mass fraction] 93 % Felix Hallman MD Work Phone: [facility] 07-05-2025 11:00-0400 Systolic blood pressure 108 mm[Hg] Felix Hallman MD Work Phone: [facility] 07-02-2025 18:15-0400 Body height 165.1 cm Felix Hallman MD Work Phone: [facility] 07-02-2025 18:15-0400 Body mass index (BMI) [Ratio] 28.79 kg/m2 Felix Hallman MD Work Phone: [facility] 07-02-2025 18:15-0400 Body weight 78.47 kg Felix Hallman MD Work Phone: [facility] 06-06-2025 13:25-0400 Body height 165.1 cm Joie FRIEND Work Phone: [facility] 06-06-2025 13:25-0400 Body mass index (BMI) [Ratio] 31.45 kg/m2 Joie FRIEND Work Phone: [facility] 06-06-2025 13:25-0400 Body weight 85.73 kg Joie FRIEND Work Phone: [facility] 06-05-2025 13:03-0400 Body height 165.1 cm Vj Chrisotzer [employer] Work Phone: [facility] 06-05-2025 13:03-0400 Body mass index (BMI) [Ratio] 30.65 kg/m2 Vj Chrisotzer [employer] Work Phone: [facility] 06-05-2025 13:03-0400 Body temperature 97.7 [degF] Vj Krotzer [employer] Work Phone: [facility] 06-05-2025 13:03-0400 Body weight 83.55 kg Vj Krotzer [employer] Work Phone: [facility] 06-05-2025 13:03-0400 Diastolic blood pressure 80 mm[Hg] Vj Chrisotzer [employer] Work Phone: [facility] 06-05-2025 13:03-0400 Heart rate 67 /min Vj Krotzer [employer] Work Phone: [facility] 06-05-2025 13:03-0400 Respiratory rate 18 /min Vj Krotzer [employer] Work Phone: [facility] 06-05-2025 13:03-0400 SaO2% (BldA) [Mass fraction] 95 % Vj Krotzer [employer] Work Phone: [facility] 06-05-2025 13:03-0400 Systolic blood pressure 120 mm[Hg] Vj Krotzer [employer] Work Phone: [facility] 05-15-2025 15:20-0400 Heart rate 98 /min Felix Hallman MD Work Phone: [facility] 05-15-2025 15:20-0400 SaO2% (BldA) [Mass fraction] 94 % Felix Hallman MD Work Phone: [facility] 05-15-2025 11:05-0400 Body temperature 98.1 [degF] Felix Hallman MD Work Phone: [facility] 05-15-2025 11:05-0400 Diastolic blood pressure 72 mm[Hg] Felix Hallman MD Work Phone: [facility] 05-15-2025 11:05-0400 Respiratory rate 16 /min Felix Hallman MD Work Phone: [facility] 05-15-2025 11:05-0400 Systolic blood pressure 121 mm[Hg] Felix Hallman MD Work Phone: [facility] 05-15-2025 03:15-0400 Body mass index (BMI) [Ratio] 30.93 kg/m2 Felix Hallman MD Work Phone: [facility] 05-15-2025 03:15-0400 Body weight 84.3 kg Felix Hallman MD Work Phone: [facility] 05-13-2025 16:20-0400 Body height 165.1 cm Felix Hallman MD Work Phone: [facility] 05-13-2025 11:23-0400 SaO2% (BldA) [Mass fraction] 92 % Felix Hallman MD Work Phone: [facility] 05-13-2025 11:23-0400 SaO2% (BldA) [Mass fraction] 67 % Felix Hallman MD Work Phone: [facility] 05-13-2025 11:21-0400 SaO2% (BldA) [Mass fraction] 67 % MELY [facility] Comment on above: Performed By: #### ABG ####[facility] ([facility])[address] [place] [id number] [facility] 04-04-2025 09:01-0400 Body height 165.1 cm Pam RICHEY Work Phone: [facility] 04-04-2025 09:01-0400 Body mass index (BMI) [Ratio] 30.79 kg/m2 Pam RICHEY Work Phone: [facility] 04-04-2025 09:01-0400 Body temperature 97.7 [degF] Pam RICHEY Work Phone: [facility] 04-04-2025 09:01-0400 Body weight 83.92 kg Pam RICHEY Work Phone: [facility] 04-04-2025 09:01-0400 Diastolic blood pressure 68 mm[Hg] Pam RICHEY Work Phone: [facility] 04-04-2025 09:01-0400 Heart rate 88 /min Pam RICHEY Work Phone: [facility] 04-04-2025 09:01-0400 Respiratory rate 20 /min Pam RICHEY Work Phone: [facility] 04-04-2025 09:01-0400 SaO2% (BldA) [Mass fraction] 93 % Pam RICHEY Work Phone: [facility] 04-04-2025 09:01-0400 Systolic blood pressure 108 mm[Hg] Pam RICHEY Work Phone: [facility] 04-03-2025 08:04-0400 Body height 165.1 cm Pfo 4 [facility] 04-03-2025 08:04-0400 Body mass index (BMI) [Ratio] 30.89 kg/m2 Pfo 4 [facility] 04-03-2025 08:04-0400 Body temperature 98.01 [degF] Pfo 4 [facility] 04-03-2025 08:04-0400 Body weight 84.19 kg Pfo 4 [facility] 04-03-2025 08:04-0400 Diastolic blood pressure 69 mm[Hg] Pfo 4 [facility] 04-03-2025 08:04-0400 Heart rate 81 /min Pfo 4 [facility] 04-03-2025 08:04-0400 Respiratory rate 16 /min Pfo 4 [facility] 04-03-2025 08:04-0400 SaO2% (BldA) [Mass fraction] 98 % Pfo 4 [facility] 04-03-2025 08:04-0400 Systolic blood pressure 149 mm[Hg] Pfo 4 [facility] 03-30-2025 08:01-0400 Body height 165.1 cm Pfo 1 [facility] 03-30-2025 08:01-0400 Body mass index (BMI) [Ratio] 31.15 kg/m2 Pfo 1 [facility] 03-30-2025 08:01-0400 Body temperature 98.01 [degF] Pfo 1 [facility] 03-30-2025 08:01-0400 Body weight 84.91 kg Pfo 1 [facility] 03-30-2025 08:01-0400 Diastolic blood pressure 46 mm[Hg] Pfo 1 [facility] 03-30-2025 08:01-0400 Heart rate 79 /min Pfo 1 [facility] 03-30-2025 08:01-0400 Respiratory rate 15 /min Pfo 1 [facility] 03-30-2025 08:01-0400 SaO2% (BldA) [Mass fraction] 94 % Pfo 1 [facility] 03-30-2025 08:01-0400 Systolic blood pressure 132 mm[Hg] Pfo 1 [facility] 03-28-2025 08:07-0400 Body height 165.1 cm Pfo 1 [facility] 03-28-2025 08:07-0400 Body mass index (BMI) [Ratio] 31.32 kg/m2 Pfo 1 [facility] 03-28-2025 08:07-0400 Body temperature 97.9 [degF] Pfo 1 [facility] 03-28-2025 08:07-0400 Body weight 85.37 kg Pfo 1 [facility] 03-28-2025 08:07-0400 Diastolic blood pressure 55 mm[Hg] Pfo 1 [facility] 03-28-2025 08:07-0400 Heart rate 99 /min Pfo 1 [facility] 03-28-2025 08:07-0400 Respiratory rate 22 /min Pfo 1 [facility] 03-28-2025 08:07-0400 SaO2% (BldA) [Mass fraction] 93 % Pfo 1 [facility] 03-28-2025 08:07-0400 Systolic blood pressure 95 mm[Hg] Pfo 1 [facility] 03-26-2025 09:08-0400 Body height 165.1 cm Pfo 4 [facility] 03-26-2025 09:08-0400 Body mass index (BMI) [Ratio] 29.95 kg/m2 Pfo 4 [facility] 03-26-2025 09:08-0400 Body temperature 98.6 [degF] Pfo 4 [facility] 03-26-2025 09:08-0400 Body weight 81.65 kg Pfo 4 [facility] 03-26-2025 09:08-0400 Diastolic blood pressure 73 mm[Hg] Pfo 4 [facility] 03-26-2025 09:08-0400 Heart rate 77 /min Pfo 4 [facility] 03-26-2025 09:08-0400 Respiratory rate 18 /min Pfo 4 [facility] 03-26-2025 09:08-0400 SaO2% (BldA) [Mass fraction] 98 % Pfo 4 [facility] 03-26-2025 09:08-0400 Systolic blood pressure 132 mm[Hg] Pfo 4 [facility] 03-22-2025 08:15-0400 Body height 165.1 cm Pfo 4 [facility] 03-22-2025 08:15-0400 Body mass index (BMI) [Ratio] 32.25 kg/m2 Pfo 4 [facility] 03-22-2025 08:15-0400 Body temperature 98.1 [degF] Pfo 4 [facility] 03-22-2025 08:15-0400 Body weight 87.91 kg Pfo 4 [facility] 03-22-2025 08:15-0400 Diastolic blood pressure 57 mm[Hg] Pfo 4 [facility] 03-22-2025 08:15-0400 Heart rate 77 /min Pfo 4 [facility] 03-22-2025 08:15-0400 Respiratory rate 16 /min Pfo 4 [facility] 03-22-2025 08:15-0400 SaO2% (BldA) [Mass fraction] 94 % Pfo 4 [facility] 03-22-2025 08:15-0400 Systolic blood pressure 135 mm[Hg] Pfo 4 [facility] 03-20-2025 08:36-0400 Body height 165.1 cm Pfo 4 [facility] 03-20-2025 08:36-0400 Body mass index (BMI) [Ratio] 31.98 kg/m2 Pfo 4 [facility] 03-20-2025 08:36-0400 Body temperature 97.3 [degF] Pfo 4 [facility] 03-20-2025 08:36-0400 Body weight 87.18 kg Pfo 4 [facility] 03-20-2025 08:36-0400 Diastolic blood pressure 58 mm[Hg] Pfo 4 [facility] 03-20-2025 08:36-0400 Heart rate 85 /min Pfo 4 [facility] 03-20-2025 08:36-0400 Respiratory rate 16 /min Pfo 4 [facility] 03-20-2025 08:36-0400 SaO2% (BldA) [Mass fraction] 99 % Pfo 4 [facility] 03-20-2025 08:36-0400 Systolic blood pressure 129 mm[Hg] Pfo 4 [facility] 03-14-2025 08:50-0400 Body height 165.1 cm Pfo 4 [facility] 03-14-2025 08:50-0400 Body mass index (BMI) [Ratio] 31.92 kg/m2 Pfo 4 [facility] 03-14-2025 08:50-0400 Body temperature 98.1 [degF] Pfo 4 [facility] 03-14-2025 08:50-0400 Body weight 87 kg Pfo 4 [facility] 03-14-2025 08:50-0400 Diastolic blood pressure 60 mm[Hg] Pfo 4 [facility] 03-14-2025 08:50-0400 Heart rate 82 /min Pfo 4 [facility] 03-14-2025 08:50-0400 Respiratory rate 22 /min Pfo 4 [facility] 03-14-2025 08:50-0400 SaO2% (BldA) [Mass fraction] 97 % Pfo 4 [facility] 03-14-2025 08:50-0400 Systolic blood pressure 159 mm[Hg] Pfo 4 [facility] 03-12-2025 08:07-0400 Body temperature 98.49 [degF] Pfo 4 [facility] 03-12-2025 08:07-0400 Diastolic blood pressure 55 mm[Hg] Pfo 4 [facility] 03-12-2025 08:07-0400 Heart rate 92 /min Pfo 4 [facility] 03-12-2025 08:07-0400 Respiratory rate 22 /min Pfo 4 [facility] 03-12-2025 08:07-0400 SaO2% (BldA) [Mass fraction] 96 % Pfo 4 [facility] 03-12-2025 08:07-0400 Systolic blood pressure 143 mm[Hg] Pfo 4 [facility] 01-25-2025 14:15-0400 Body height 165.1 cm Casimiro Muñoz MD Work Phone: [facility] 01-25-2025 14:15-0400 Body mass index (BMI) [Ratio] 31.78 kg/m2 Casimiro Muñoz MD Work Phone: [facility] 01-25-2025 14:15-0400 Body temperature 98.1 [degF] Casimiro Muñoz MD Work Phone: [facility] 01-25-2025 14:15-0400 Body weight 86.64 kg Casimiro Muñoz MD Work Phone: [facility] 01-25-2025 14:15-0400 Diastolic blood pressure 60 mm[Hg] Casimiro Muñoz MD Work Phone: [facility] 01-25-2025 14:15-0400 Heart rate 86 /min Casimiro Muñoz MD Work Phone: [facility] 01-25-2025 14:15-0400 Respiratory rate 18 /min Casimiro Muñoz MD Work Phone: [facility] 01-25-2025 14:15-0400 SaO2% (BldA) [Mass fraction] 97 % Casimiro Muñoz MD Work Phone: [facility] 01-25-2025 14:15-0400 Systolic blood pressure 112 mm[Hg] Casimiro Muñoz MD Work Phone: [facility] 01-22-2025 13:53-0400 Body height 165.1 cm Pam Stinson [employer] Work Phone: [facility] 01-22-2025 13:53-0400 Body mass index (BMI) [Ratio] 31.88 kg/m2 Pam Stinson [employer] Work Phone: [facility] 01-22-2025 13:53-0400 Body temperature 98.2 [degF] Pam Stinson [employer] Work Phone: [facility] 01-22-2025 13:53-0400 Body weight 86.91 kg Pam Stinson [employer] Work Phone: [facility] 01-22-2025 13:53-0400 Diastolic blood pressure 70 mm[Hg] Pam Stinson [employer] Work Phone: [facility] 01-22-2025 13:53-0400 Heart rate 91 /min Pam Stinson [employer] Work Phone: [facility] 01-22-2025 13:53-0400 Respiratory rate 18 /min Pam Stinson [employer] Work Phone: [facility] 01-22-2025 13:53-0400 SaO2% (BldA) [Mass fraction] 92 % Pam Stinson [employer] Work Phone: [facility] 01-22-2025 13:53-0400 Systolic blood pressure 110 mm[Hg] Pam Stinson [employer] Work Phone: [facility] 01-18-2025 13:36-0500 Diastolic blood pressure 57 mm[Hg] Kendall Villar MD [facility] 01-18-2025 13:36-0500 Systolic blood pressure 90 mm[Hg] Kendall Villar MD [facility] 11-28-2024 14:42-0500 Body height 165.1 cm Pam Stinsno [employer] Work Phone: [facility] 11-28-2024 14:42-0500 Body mass index (BMI) [Ratio] 32.88 kg/m2 Pam Stinson [employer] Work Phone: [facility] 11-28-2024 14:42-0500 Body temperature 98.4 [degF] Pam Stinson [employer] Work Phone: [facility] 11-28-2024 14:42-0500 Body weight 89.63 kg Pam Stinson [employer] Work Phone: [facility] 11-28-2024 14:42-0500 Diastolic blood pressure 58 mm[Hg] Pam Stinson [employer] Work Phone: [facility] 11-28-2024 14:42-0500 Heart rate 79 /min Pam Stinson [employer] Work Phone: [facility] 11-28-2024 14:42-0500 Respiratory rate 20 /min Pam Stinson [employer] Work Phone: [facility] 11-28-2024 14:42-0500 SaO2% (BldA) [Mass fraction] 96 % Pam Stinson [employer] Work Phone: [facility] 11-28-2024 14:42-0500 Systolic blood pressure 140 mm[Hg] Pam Stinson [employer] Work Phone: [facility] 11-24-2024 13:54-0500 Body height 165.1 cm Radha Moran MD Work Phone: [facility] 11-24-2024 13:54-0500 Body mass index (BMI) [Ratio] 32.45 kg/m2 Radha Moran MD Work Phone: [facility] 11-24-2024 13:54-0500 Body weight 88.45 kg Radha Moran MD Work Phone: [facility] 11-24-2024 13:54-0500 Diastolic blood pressure 70 mm[Hg] Radha Moran MD Work Phone: [facility] 11-24-2024 13:54-0500 Heart rate 51 /min Radha Moran MD Work Phone: [facility] 11-24-2024 13:54-0500 SaO2% (BldA) [Mass fraction] 95 % Radha Moran MD Work Phone: [facility] 11-24-2024 13:54-0500 Systolic blood pressure 130 mm[Hg] Radha Moran MD Work Phone: [facility] 08-28-2024 08:15-0400 Body height 165.1 cm Pam Stinson [employer] Work Phone: [facility] 08-28-2024 08:15-0400 Body mass index (BMI) [Ratio] 34.35 kg/m2 Pam Stinson [employer] Work Phone: [facility] 08-28-2024 08:15-0400 Body temperature 97.5 [degF] Pam Stinson [employer] Work Phone: [facility] 08-28-2024 08:15-0400 Body weight 93.62 kg Pam Stinson [employer] Work Phone: [facility] 08-28-2024 08:15-0400 Diastolic blood pressure 60 mm[Hg] Pam Stinson [employer] Work Phone: [facility] 08-28-2024 08:15-0400 Heart rate 74 /min Pam Stinson [employer] Work Phone: [facility] 08-28-2024 08:15-0400 Respiratory rate 18 /min Pam Stinson APRN-BARTOLO Work Phone: [facility] 08-28-2024 08:15-0400 SaO2% (BldA) [Mass fraction] 90 % Pam Stinson APRN-[employer] Work Phone: [facility] 08-28-2024 08:15-0400 Systolic blood pressure 120 mm[Hg] Pam Stinson APRN-[employer] Work Phone: [facility] 06-21-2024 14:48-0400 Body height 165.1 cm Pam Stinson APRN[employer] Work Phone: [facility] 06-21-2024 14:48-0400 Body mass index (BMI) [Ratio] 33.51 kg/m2 Pam Stinson APRN[employer] Work Phone: [facility] 06-21-2024 14:48-0400 Body temperature 97.7 [degF] Pam Stinson APRN-[employer] Work Phone: [facility] 06-21-2024 14:48-0400 Body weight 91.35 kg Pam Stinson APRN-[employer] Work Phone: [facility] 06-21-2024 14:48-0400 Diastolic blood pressure 70 mm[Hg] Pam Stinson APRN-[employer] Work Phone: [facility] 06-21-2024 14:48-0400 Heart rate 66 /min Pam Stinson APRN[employer] Work Phone: [facility] 06-21-2024 14:48-0400 SaO2% (BldA) [Mass fraction] 97 % Pam Stinson APRN[employer] Work Phone: [facility] 06-21-2024 14:48-0400 Systolic blood pressure 110 mm[Hg] Pam Stinson [employer] Work Phone: [facility] 05-03-2024 14:32-0400 Body height 165.1 cm Pam Stinson APRN-[employer] Work Phone: [facility] 05-03-2024 14:32-0400 Body mass index (BMI) [Ratio] 34.53 kg/m2 Pam Stinson [employer] Work Phone: [facility] 05-03-2024 14:32-0400 Body temperature 99 [degF] Pam Stinson APRN-[employer] Work Phone: [facility] 05-03-2024 14:32-0400 Body weight 94.12 kg Pam Stinson APRN-[employer] Work Phone: [facility] 05-03-2024 14:32-0400 Diastolic blood pressure 70 mm[Hg] Pam Stinson APRN-[employer] Work Phone: [facility] 05-03-2024 14:32-0400 Heart rate 71 /min Pam Stinson APRN-[employer] Work Phone: [facility] 05-03-2024 14:32-0400 Respiratory rate 18 /min Pam Stinson APRN-[employer] Work Phone: [facility] 05-03-2024 14:32-0400 SaO2% (BldA) [Mass fraction] 94 % Pam Stinson APRN-[employer] Work Phone: [facility] 05-03-2024 14:32-0400 Systolic blood pressure 130 mm[Hg] Pam Stinson [employer] Work Phone: [facility] 03-09-2024 15:13-0400 Body height 165.1 cm Casimiro Muñoz MD Work Phone: [facility] 03-09-2024 15:13-0400 Body mass index (BMI) [Ratio] 33.08 kg/m2 Casimiro Muñoz MD Work Phone: [facility] 03-09-2024 15:13-0400 Body temperature 97.59 [degF] Casimiro Muñoz MD Work Phone: [facility] 03-09-2024 15:13-0400 Body weight 90.17 kg Casimiro Muñoz MD Work Phone: [facility] 03-09-2024 15:13-0400 Diastolic blood pressure 60 mm[Hg] Casimiro Muñoz MD Work Phone: [facility] 03-09-2024 15:13-0400 Heart rate 104 /min Casimiro Muñoz MD Work Phone: [facility] 03-09-2024 15:13-0400 Respiratory rate 24 /min Casimiro Muñoz MD Work Phone: [facility] 03-09-2024 15:13-0400 SaO2% (BldA) [Mass fraction] 97 % Casimiro Muñoz MD Work Phone: [facility] 03-09-2024 15:13-0400 Systolic blood pressure 130 mm[Hg] Casimiro Muñoz MD Work Phone: [facility] 02-09-2024 13:00-0400 Body height 165.1 cm Pam Stinson [employer] Work Phone: [facility] 02-09-2024 13:00-0400 Body mass index (BMI) [Ratio] 33.35 kg/m2 Pam Stinson [employer] Work Phone: [facility] 02-09-2024 13:00-0400 Body temperature 98.2 [degF] Pam Stinson [employer] Work Phone: [facility] 02-09-2024 13:00-0400 Body weight 90.9 kg Pam Stinson [employer] Work Phone: [facility] 02-09-2024 13:00-0400 Diastolic blood pressure 72 mm[Hg] Pam Stinson [employer] Work Phone: [facility] 02-09-2024 13:00-0400 Heart rate 79 /min Pam Stinson [employer] Work Phone: [facility] 02-09-2024 13:00-0400 Respiratory rate 20 /min Pam Stinson [employer] Work Phone: [facility] 02-09-2024 13:00-0400 SaO2% (BldA) [Mass fraction] 97 % Pam Stinson [employer] Work Phone: [facility] 02-09-2024 13:00-0400 Systolic blood pressure 134 mm[Hg] Pam Stinson [employer] Work Phone: [facility] 12-15-2023 14:51-0500 Body height 165.1 cm Pam Stinson [employer] Work Phone: [facility] 12-15-2023 14:51-0500 Body mass index (BMI) [Ratio] 31.02 kg/m2 Pam Stinson [employer] Work Phone: [facility] 12-15-2023 14:51-0500 Body temperature 98.29 [degF] Pam Stinson [employer] Work Phone: [facility] 12-15-2023 14:51-0500 Body weight 84.54 kg Pam Stinson [employer] Work Phone: [facility] 12-15-2023 14:51-0500 Diastolic blood pressure 60 mm[Hg] Pam Stinson [employer] Work Phone: [facility] 12-15-2023 14:51-0500 Heart rate 89 /min Pam Stinson [employer] Work Phone: [facility] 12-15-2023 14:51-0500 SaO2% (BldA) [Mass fraction] 94 % Pam Stinson [employer] Work Phone: [facility] 12-15-2023 14:51-0500 Systolic blood pressure 100 mm[Hg] Pam Stinson [employer] Work Phone: [facility] 11-25-2023 13:56-0500 Body height 165.1 cm Casimiro Muñoz MD Work Phone: [facility] 11-25-2023 13:56-0500 Body mass index (BMI) [Ratio] 31.45 kg/m2 Casimiro Muñoz MD Work Phone: [facility] 11-25-2023 13:56-0500 Body temperature 99 [degF] Casimiro Muñoz MD Work Phone: [facility] 11-25-2023 13:56-0500 Body weight 85.73 kg Casimiro Muñoz MD Work Phone: [facility] 11-25-2023 13:56-0500 Diastolic blood pressure 57 mm[Hg] Casimiro Muñoz MD Work Phone: [facility] 11-25-2023 13:56-0500 Heart rate 65 /min Casimiro Muñoz MD Work Phone: [facility] 11-25-2023 13:56-0500 Respiratory rate 16 /min Casimiro Muñoz MD Work Phone: [facility] 11-25-2023 13:56-0500 SaO2% (BldA) [Mass fraction] 91 % Casimiro Muñoz MD Work Phone: [facility] 11-25-2023 13:56-0500 Systolic blood pressure 141 mm[Hg] Casimiro Muñoz MD Work Phone: [facility] 01-13-2023 07:13-0500 Body temperature 98.01 [degF] Georges Doe MD Work Phone: [facility] 01-13-2023 07:13-0500 Diastolic blood pressure 54 mm[Hg] Georges Doe MD Work Phone: [facility] 01-13-2023 07:13-0500 Heart rate 57 /min Georges Doe MD Work Phone: [facility] 01-13-2023 07:13-0500 Respiratory rate 18 /min Georges Doe MD Work Phone: [facility] 01-13-2023 07:13-0500 SaO2% (BldA) [Mass fraction] 98 % Georges Doe MD Work Phone: [facility] 01-13-2023 07:13-0500 Systolic blood pressure 141 mm[Hg] Georges Doe MD Work Phone: [facility] 12-11-2022 07:58-0500 Body temperature 98.8 [degF] Georges Doe MD Work Phone: [facility] 12-11-2022 07:58-0500 Diastolic blood pressure 56 mm[Hg] Georges Doe MD Work Phone: [facility] 12-11-2022 07:58-0500 Heart rate 85 /min Georges Doe MD Work Phone: [facility] 12-11-2022 07:58-0500 Respiratory rate 16 /min Georges Doe MD Work Phone: [facility] 12-11-2022 07:58-0500 SaO2% (BldA) [Mass fraction] 97 % Georges Doe MD Work Phone: [facility] 12-11-2022 07:58-0500 Systolic blood pressure 156 mm[Hg] Georges Doe MD Work Phone: [facility] 12-07-2022 11:44-0500 Body height 165.1 cm Georges Doe MD Work Phone: [facility] 12-07-2022 11:44-0500 Body mass index (BMI) [Ratio] 34.61 kg/m2 Georges Doe MD Work Phone: [facility] 12-07-2022 11:44-0500 Body weight 94.35 kg Georges Doe MD Work Phone: [facility] 11-24-2022 11:44-0500 Body height 165.1 cm [facility] 11-24-2022 11:44-0500 Body mass index (BMI) [Ratio] 34.95 kg/m2 [facility] 11-24-2022 11:44-0500 Body temperature 98.4 [degF] [facility] 11-24-2022 11:44-0500 Body weight 95.25 kg [facility] 11-24-2022 11:44-0500 Diastolic blood pressure 45 mm[Hg] [facility] 11-24-2022 11:44-0500 Heart rate 60 /min [facility] 11-24-2022 11:44-0500 Respiratory rate 15 /min [facility] 11-24-2022 11:44-0500 SaO2% (BldA) [Mass fraction] 93 % [facility] 11-24-2022 11:44-0500 Systolic blood pressure 131 mm[Hg] [facility] Encounters Encounter Date Encounter Type Care Provider Facility Start: 08-06-2025 Evaluation and management of inpatient RA M DARIAN [facility] Start: 08-03-2025 End: 08-08-2025 ambulatory Sacha G Bobby DO Work Phone: [facility] Internal Medicine - Family Medicine Comment on above: Lesion of left femur (Primary Dx); Coronary artery disease involving [place] coronary artery of [place] heart without angina pectoris; Chronic diastolic congestive heart failure ([facility]); S/p TAVR (transcatheter aortic valve replacement), bioprosthetic; Hypertensive heart and chronic kidney disease with heart failure and stage 1 through stage 4 chronic kidney disease, or unspecified chronic kidney disease ([facility]) Start: 08-02-2025 End: 08-02-2025 Telephone encounter [facility]bar[facility] Start: 08-01-2025 End: 08-01-2025 Maged [facility] Internal Medicine - Family Medicine Start: 08-01-2025 End: 08-01-2025 Office outpatient visit 40 minutes Ra Marinelli MD Work Phone: [facility] Orthopedics/Trauma and Adult Reconstruction Comment on above: 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 with routine healing, subsequent encounter (Primary Dx); Lesion of left femur Start: 07-31-2025 End: 07-31-2025 Documentation procedure Rosario Maravilla [facility] - Medical Oncology Start: 07-31-2025 End: 07-31-2025 ambulatory [facility] Start: 07-30-2025 End: 07-31-2025 Maged [facility] Internal Medicine - Family Medicine Comment on above: Neuropathy due to ty pe 2 diabetes mellitus ([facility]); Insomnia, unspecified type Start: 07-27-2025 End: 07-27-2025 Telephone encounter Cinda Browning RN Work Phone: [facility] Internal Medicine - Family Medicine Start: 07-25-2025 End: 07-25-2025 Telephone encounter Viridiana Mathews MD Work Phone: [facility] Gynecology Oncology, A Department of [facility] Comment on above: Appointment Start: 07-24-2025 End: 07-24-2025 ambulatory Sacha Rosales DO Work Phone: [facility] [facility] Internal Medicine - Family Medicine Comment on above: Chronic diastolic co ngestive heart failure ([facility]) (Primary Dx); Pathological fracture of right hip with routine healing, unspecified pathological cause, subsequent encounter; Closed fracture of right hip, sequela; Closed nondisplaced fracture of lesser trochanter of right femur with delayed healing; Other abnormalities of gait and mobility; Hypertensive heart and chronic kidney disease with heart failure and stage 1 through stage 4 chronic kidney disease, or unspecified chronic kidney disease ([facility] Start: 07-20-2025 End: 07-20-2025 ambulatory Sacha Rosales DO Work Phone: [facility] Internal Medicine - Family Medicine Comment on above: Pathological fractur e of right hip with routine healing, unspecified pathological cause, subsequent encounter (Primary Dx); Closed nondisplaced fracture of pelvis with routine healing, unspecified part of pelvis, subsequent encounter; Mixed diabetic hyperlipidemia associated with type 2 diabetes mellitus ([facility]); Hypertensive heart and chronic kidney disease with heart failure and stage 1 through stage 4 chronic kidney disease, or unspecified chronic kidney disease ([facility] Start: 07-19-2025 End: 07-19-2025 ambulatory [facility] Start: 07-13-2025 End: 07-13-2025 ambulatory [facility] Start: 07-12-2025 Encounter for preprocedural respiratory examination MARIA GUADALUPE Patel [facility] Start: 07-12-2025 End: 07-18-2025 Evaluation and management of inpatient THANIA HUIZAR [facility] Start: 07-10-2025 End: 07-12-2025 [facility] Start: 07-10-2025 End: 07-10-2025 Darlin FRIEND Work Phone: [facility] Start: 07-10-2025 End: 07-10-2025 Mjboo aster FRIEND Work Phone: [facility] Start: 07-10-2025 End: 07-16-2025 ambulatory JOIE ECHAVARRIA Not Available Comment on above: Hypertensive heart a nd chronic kidney disease with heart failure and stage 1 through stage 4 chronic kidney disease, or unspecified chronic kidney disease ([facility]) (Primary Dx); Chronic obstructive pulmonary disease, unspecified COPD type ([facility] Lumbar back pain with radiculopathy affecting left lower extremity; Spinal stenosis of lumbar region with neurogenic claudication; Closed fracture of right hip, sequela; Rhinitis, unspecified type Start: 07-10-2025 End: 07-10-2025 Office outpatient visit 25 minutes Joie FRIEND Work Phone: [facility] Comment on above: Acute right hip pain (Primary Dx); Closed avulsion fracture of right hip with routine healing, subsequent encounter; Intertrochanteric fracture of right hip, closed, initial encounter (HCC) Start: 07-06-2025 End: 07-06-2025 ambulatory Sacha Rosales DO Work Phone: [facility] Internal Medicine - Family Medicine Comment on above: Chronic diastolic co ngestive heart failure ([facility]) (Primary Dx); Hypertensive heart and chronic kidney disease with heart failure and stage 1 through stage 4 chronic kidney disease, or unspecified chronic kidney disease ([facility]); Intractable nausea and vomiting; Urinary tract infection without hematuria, site unspecified Start: 07-05-2025 End: 07-05-2025 Telephone encounter Viridiana Mathews MD Work Phone: [facility] Gynecology Oncology, A Department of [facility] Comment on above: Appointment Start: 07-03-2025 End: 07-03-2025 ambulatory VJ Cohen [facility] Start: 07-02-2025 End: 07-05-2025 Evaluation and management of inpatient Ben Thibodeaux MD Work Phone: [facility] - 2 Med Surg Comment on above: Adnexal mass (Primar y Dx); Intractable nausea and vomiting; Type 2 diabetes mellitus without complication, without long-term current use of insulin ([facility]); Generalized weakness; Hypomagnesemia; Iron deficiency anemia due to chronic blood loss Start: 07-02-2025 End: 07-02-2025 ambulatory VJ GRAY [facility] Start: 06-25-2025 End: 06-25-2025 ambulatory Ra Maravilla [facility] Work Phone: Start: 06-25-2025 End: 06-25-2025 Departed Referred Ra Cohen DO -LAB [facility] Start: 06-21-2025 End: 07-10-2025 Telephone encounter Joie FRIEND Work Phone: [facility] Comment on above: wants to know if she can do outpatient wants to be referred Start: 06-18-2025 End: 06-19-2025 Telephone encounter Joie FRIEND Work Phone: [facility] Comment on above: OTC Tylenol not work ing Start: 06-11-2025 End: 06-13-2025 ambulatory VJ GRAY [facility] Start: 06-10-2025 End: 06-10-2025 Emergency department patient visit [facility] Vicki [facility] Start: 06-08-2025 End: 06-08-2025 Emergency department patient visit [facility] Start: 06-06-2025 End: 06-06-2025 Bamboo flowsheet Joie FRIEND Work Phone: [facility] Start: 06-06-2025 End: 06-06-2025 Bamboo flowsheet Joie FRIEND Work Phone: [facility] Start: 06-06-2025 End: 06-06-2025 Office outpatient visit 15 minutes Joie FRIEND Work Phone: [facility] Comment on above: Acute right hip pain (Primary Dx); Acute pain of both hips; Closed avulsion fracture of right hip with routine healing, subsequent encounter Start: 06-06-2025 End: 06-06-2025 ambulatory JOIE ECHAVARRIA Not Available Start: 06-05-2025 End: 06-05-2025 Transitional care manage srvc 14 day discharge Vj Gray [employer] Work Phone: [facility] Phys[facility] Internal Medicine - Family Medicine Comment on above: Hospital discharge f ollow-up (Primary Dx); Closed fracture of right hip, sequela Start: 06-05-2025 End: 06-05-2025 ambulatory VJ GRAY [facility] Start: 06-04-2025 End: 06-04-2025 ambulatory [facility] Start: 05-30-2025 End: 05-30-2025 ambulatory [facility] Trice [facility] Start: 05-29-2025 End: 05-30-2025 Emergency department patient visit [facility] Trice [facility] Start: 05-28-2025 End: 05-28-2025 ambulatory LEXX JHA [facility] Start: 05-22-2025 End: 05-22-2025 ambulatory [facility] Start: 05-15-2025 End: 05-15-2025 ambulatory ANA TIDWELL [facility] Start: 05-14-2025 End: 05-14-2025 ambulatory KENNETH PRYOR [facility] Start: 05-13-2025 End: 05-15-2025 Evaluation and management of inpatient Jack Milligan DO Work Phone: [facility] - Acute Care Comment on above: Acute respiratory fa ilure with hypoxia ([facility]) (Primary Dx); Nondisplaced fracture of lesser trochanter of right femur, initial encounter for closed fracture (CMS-HCC); Generalized weakness; Closed fracture of right hip, initial encounter (CMS-HCC); Hypoxia; Type 2 diabetes mellitus with hypoglycemia without coma, with long-term current use of insulin ([facility]) Start: 05-12-2025 End: 05-12-2025 [facility] Start: 05-12-2025 End: 05-12-2025 ambulatory [facility] Trice [facility] Start: 05-11-2025 End: 05-11-2025 Emergency department patient visit [facility] Trice [facility] Start: 05-09-2025 End: 05-10-2025 Emergency department patient visit [facility] Trice [facility] Start: 05-01-2025 End: 05-01-2025 ambulatory NING LAURA [facility] Start: 04-28-2025 End: 04-28-2025 Emergency department patient visit NING SANCHEZ [facility] Start: 04-05-2025 End: 04-05-2025 ambulatory CLIFF VIVAR [facility] Start: 04-04-2025 End: 04-04-2025 Office outpatient visit 15 minutes Pam Estrella McneilStinson [employer] Work Phone: [facility] Phys[facility] Internal Medicine - Family Medicine Comment on above: Moderate major depre ssion ([facility]) (Primary Dx); Insomnia, unspecified type; Normal pressure hydrocephalus ([facility]); Acute on chronic diastolic heart failure ([facility]); Diabetes mellitus type 2, insulin dependent ([facility]) Start: 04-04-2025 End: 04-04-2025 ambulatory [facility] Start: 04-03-2025 End: 04-03-2025 ambulatory Pfo Infusion Chair 4 Stephany Landaverde [facility] Medical Oncology Comment on above: Staphylococcus aureu s bacteremia with sepsis ([facility]) (Primary Dx); MRSA (methicillin resistant Staphylococcus aureus) Start: 04-01-2025 End: 04-02-2025 ambulatory Pfo Infusion Bed 1 Stephany Esquivel [facility] Medical Oncology Comment on above: Staphylococcus aureu s bacteremia with sepsis ([facility]) (Primary Dx); MRSA (methicillin resistant Staphylococcus aureus) Start: 03-30-2025 End: 04-02-2025 ambulatory Pfo Infusion Bed 1 Stephany Esquivel [facility] Comment on above: Staphylococcus aureu s bacteremia with sepsis ([facility]) (Primary Dx); MRSA (methicillin resistant Staphylococcus aureus) Start: 03-28-2025 End: 03-28-2025 ambulatory Pfo Infusion Bed 1 Stephany Esquivel [facility] Medical Oncology Comment on above: Staphylococcus aureu s bacteremia with sepsis ([facility]) (Primary Dx); MRSA (methicillin resistant Staphylococcus aureus) Start: 03-26-2025 End: 03-26-2025 ambulatory Pfo Infusion Chair 4 Stephany Landaverde [facility] Medical Oncology Comment on above: Staphylococcus aureu s bacteremia with sepsis ([facility]) (Primary Dx); MRSA (methicillin resistant Staphylococcus aureus) Start: 03-24-2025 End: 03-24-2025 Emergency department patient visit [facility] Start: 03-24-2025 End: 03-24-2025 ambulatory Pfo Infusion Chair 4 Stephany Landaverde [facility] Medical Oncology Comment on above: Staphylococcus aureu s bacteremia with sepsis ([facility]) (Primary Dx); MRSA (methicillin resistant Staphylococcus aureus) Start: 03-23-2025 ambulatory [facility] Start: 03-22-2025 End: 03-22-2025 ambulatory Pfo Infusion Chair 4 Stephany Landaverde [facility] Medical Oncology Comment on above: Staphylococcus aureu s bacteremia with sepsis ([facility]) (Primary Dx); MRSA (methicillin resistant Staphylococcus aureus) Start: 03-22-2025 End: 03-22-2025 [facility] Start: 03-20-2025 End: 03-20-2025 Social Work Monik BRADLEYW Stephany Landaverde [facility] - Medical Oncology Comment on above: Staphylococcus aureu s bacteremia with sepsis ([facility]) (Primary Dx); MRSA (methicillin resistant Staphylococcus aureus) Start: 03-16-2025 End: 03-20-2025 Emergency department patient visit SASHA [facility] Start: 03-16-2025 End: 03-19-2025 Evaluation and management of inpatient [facility] Start: 03-14-2025 End: 03-14-2025 ambulatory Pfo Infusion Chair 4 Stephany Landaverde [facility] Medical Oncology Comment on above: Staphylococcus aureu s bacteremia with sepsis ([facility]) (Primary Dx); MRSA (methicillin resistant Staphylococcus aureus) Start: 03-12-2025 End: 03-12-2025 ambulatory Pfo Infusion Chair 4 Stephany Landaverde [facility] - Medical Oncology Comment on above: Staphylococcus aureu s bacteremia with sepsis ([facility]) (Primary Dx); MRSA (methicillin resistant Staphylococcus aureus) Start: 03-09-2025 End: 03-09-2025 Orders Only Fátima [facility] - Medical Oncology Comment on above: Staphylococcus aureu s bacteremia with sepsis ([facility]) (Primary Dx) Start: 03-08-2025 End: 03-08-2025 Orders Only Janaylow Causey [facility] Work Phone: Stephany Landaverde [facility] - Medical Oncology Comment on above: MRSA (methicillin re sistant Staphylococcus aureus) (Primary Dx); Staphylococcus aureus bacteremia with sepsis ([facility]) Start: 02-18-2025 End: 02-18-2025 [facility] Call Nandinikyara correa Comment on above: critical lab Start: 02-15-2025 End: 02-15-2025 ambulatory CHRISTINE Christensen [facility] Start: 02-14-2025 End: 02-24-2025 [facility] Start: 02-12-2025 End: 02-14-2025 Evaluation and management of inpatient PAM Estrella [facility] Start: 02-12-2025 End: 02-12-2025 Kendall Villar Work Phone: [facility] Start: 02-12-2025 ambulatory Kendall Villar [facility] Start: 02-03-2025 End: 02-03-2025 ambulatory [facility] Start: 02-02-2025 End: 02-02-2025 ambulatory [facility] Start: 01-25-2025 End: 01-25-2025 Office outpatient visit 40 minutes Casimiro Muñoz MD Work Phone: Stephany Landaverde [facility] - Medical Oncology Comment on above: Malignant neoplasm o f upper-outer quadrant of right breast in female, estrogen receptor positive ([facility]) (Primary Dx); Metastasis to bone ([facility]) Start: 01-25-2025 End: 01-25-2025 ambulatory CASIMIRO MUÑOZ [facility] Start: 01-22-2025 End: 01-22-2025 ambulatory [facility] Start: 01-22-2025 End: 01-22-2025 ambulatory [facility] Start: 01-22-2025 End: 01-22-2025 Office outpatient visit 15 minutes Pam Stinson [employer] [facility] Comment on above: Insomnia, unspecifie d type (Primary Dx); Moderate episode of recurrent major depressive disorder ([facility]); Stage 3b chronic kidney disease ([facility]) Start: 01-18-2025 End: 01-18-2025 Office outpatient new 45 minutes Kendall Villar Work Phone: [facility] Start: 01-18-2025 End: 01-22-2025 Refill Pam Stinson [employer] Work Phone: [facility] Medicine Comment on above: Neuropathy due to ty pe 2 diabetes mellitus ([facility]) Start: 01-15-2025 End: 01-15-2025 Orders Only Fátima Carnes [facility] - Medical Oncology Comment on above: Malignant neoplasm o f upper-outer quadrant of right breast in female, estrogen receptor positive ([facility]) (Primary Dx) Start: 01-11-2025 End: 01-11-2025 Emergency department patient visit PAM J [facility] Start: 01-10-2025 End: 01-10-2025 Emergency department patient visit NING SEVERINO [facility] Start: 01-03-2025 End: 01-03-2025 Emergency department patient visit [facility] Start: 12-05-2024 ambulatory Sarai Harris 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 ([facility]) (Primary Dx); Insomnia, unspecified type; Elevated troponin level; Recurrent UTI Start: 11-28-2024 End: 11-28-2024 [facility] Start: 11-24-2024 End: 11-24-2024 Office outpatient visit 25 minutes Radha Moran MD Work Phone: [facility] Comment on above: Nonrheumatic aortic valve stenosis (Primary Dx); S/p TAVR (transcatheter aortic valve replacement), bioprosthetic; Coronary artery disease involving [place] coronary artery of [place] heart without angina pectoris Start: 11-24-2024 End: 11-24-2024 [facility] Start: 11-23-2024 End: 11-23-2024 Telephone encounter Jazzmine Vega CMA [facility] Cardiology Start: 11-19-2024 End: 11-19-2024 Emergency department patient visit [facility] Start: 11-17-2024 End: 11-18-2024 Emergency department patient visit [facility] Start: 11-13-2024 End: 11-13-2024 Telephone encounter Irina Brunner MD Work Phone: [facility] Phys[facility] Cardiology Comment on above: Hospital Follow-up Start: 11-10-2024 End: 11-10-2024 Telephone encounter Maddie Givens RN Work Phone: [facility] Internal Medicine - Family Medicine Start: 11-09-2024 End: 11-10-2024 [facility] Start: 10-27-2024 End: 10-30-2024 Evaluation and management of inpatient [facility] Start: 10-25-2024 End: 10-25-2024 Orders Only Sacha Rosales DO Work Phone: [facility] Start: 10-11-2024 End: 10-11-2024 Emergency department patient visit [facility] Start: 10-09-2024 End: 10-10-2024 Emergency department patient visit [facility] Start: 09-15-2024 End: 09-15-2024 ambulatory MARC RIVERO [facility] Start: 09-06-2024 End: 09-06-2024 Telephone encounter Alice Ayala [facility] Start: 08-29-2024 End: 09-04-2024 Refill Vj D Krotzer [employer] Work Phone: [facility] Phys[facility] Internal Medicine Start: 08-28-2024 End: 08-28-2024 ambulatory [facility] Start: 08-28-2024 End: 08-28-2024 Transitional care manage srvc 7 day discharge Pam [facility] [employer] Work Phone: [facility] Internal Medicine - Family Medicine Comment on above: Hypoglycemia (Primar y Dx); Need for influenza vaccination; Altered mental status, unspecified altered mental status type Start: 08-24-2024 End: 08-24-2024 Refill Vj D Krotzer [employer] Work Phone: [facility] Internal Medicine Start: 08-23-2024 End: 08-24-2024 ambulatory [facility] Start: 08-16-2024 End: 08-18-2024 Telephone encounter Delisa Torres RN [facility] Internal Medicine - Family Medicine Comment on above: Transition Of Care Start: 08-12-2024 End: 08-14-2024 Evaluation and management of inpatient MELY LARIOS [facility] Start: 07-12-2024 End: 07-12-2024 Refill Vj D Krotzer [employer] Work Phone: [facility] Internal Medicine Start: 06-21-2024 End: 06-21-2024 Transitional care manage srvc 7 day discharge Pam Stinson [employer] Work Phone: [facility] Internal Medicine - Family Medicine Comment on above: Hypoglycemia (Primar y Dx); Mild intermittent reactive airway disease with acute exacerbation Start: 06-21-2024 End: 06-21-2024 ambulatory PAMKyara STINSON [facility] Start: 06-02-2024 End: 06-05-2024 Refill Pamkyara Mcneilillo [employer] Work Phone: [facility] Internal Medicine - Family Medicine Comment on above: Essential hypertensi on; Major depressive disorder in partial remission, unspecified whether recurrent ([facility]) Start: 05-11-2024 End: 05-12-2024 Refill Pam J Stinson [employer] Work Phone: [facility] Internal Medicine - Family Medicine Comment on above: Major depressive dis order in partial remission, unspecified whether recurrent ([facility]) Start: 05-03-2024 End: 05-03-2024 Transitional care manage srvc 7 day discharge Pambrannon Mcneilillo [employer] Work Phone: [facility] Internal Medicine - Family Medicine Comment on above: Pneumonia due to oth er specified organism (Primary Dx) Start: 03-09-2024 End: 03-09-2024 Office outpatient visit 25 minutes Casimiro Muñoz MD Work Phone: Stephany Landaverde [facility] - Medical Oncology Comment on above: Malignant neoplasm o f upper-outer quadrant of right breast in female, estrogen receptor positive (CMS-HCC) (Primary Dx); Metastasis to bone ([facility]) Start: 03-09-2024 End: 03-09-2024 Orders Only Rosario Esquivel [facility] - Medical Oncology Comment on above: 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, unspecified estrogen receptor status ([facility]) (Primary Dx); 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 breast in female, estrogen receptor positive (CMS-HCC) Start: 02-28-2024 End: 05-25-2024 Telephone encounter Maria Del Carmen Holland RN [facility] Neurology Start: 02-09-2024 End: 02-09-2024 Office outpatient visit 25 minutes Pambrannon Stinson [employer] Work Phone: [facility] - Family Medicine Comment on above: Acute cystitis witho ut hematuria (Primary Dx); Urge incontinence of urine Start: 01-04-2024 Refill Casimiro Muñoz MD Work Phone: Stephany Landaverde [facility] - Medical Oncology Comment on above: 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, unspecified estrogen receptor status (CMS-HCC) Start: 12-15-2023 End: 12-15-2023 Office outpatient visit 25 minutes Pam Estrella Stinson [employer] Work Phone: [facility] - Family Medicine Comment on above: Upper respiratory tr act infection, unspecified type (Primary Dx); Normal pressure hydrocephalus ([facility]); Moderate episode of recurrent major depressive disorder ([facility]); PVD (peripheral vascular disease) ([facility]); 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 mellitus ([facility]); Stage 3b chronic kidney disease ([facility]); Major depressive disorder in partial remission, unspecified whether recurrent ([facility]); Essential hypertension; GERD without esophagitis; 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 ([facility]) Start: 12-06-2023 Refill Pam nam [employer] [facility] Phone: [facility] Comment on above: Insomnia, unspecifie d type Start: 11-25-2023 End: 11-25-2023 Office outpatient visit 25 minutes Casimiro Muñoz MD Work Phone: Stephany [facility] - Medical Oncology Comment on above: 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, unspecified estrogen receptor status (CMS-HCC) (Primary Dx); 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 breast in female, estrogen receptor positive (CMS-HCC) Start: 11-25-2023 Orders Only Rosario Carnes [facility] On[facility] Comment on above: 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, unspecified estrogen receptor status (CMS-HCC) (Primary Dx); 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 breast in female, estrogen receptor positive ([facility]) Start: 01-13-2023 End: 01-16-2023 ambulatory PHUONG BLAIR [facility] Start: 01-13-2023 End: 01-15-2023 Subsequent hospital visit by physician Georges Doe MD Work Phone: [facility] 3C Observation Comment on above: Arrived Severe aortic valve stenosis (Primary Dx); Type 2 diabetes mellitus with diabetic neuropathy, with long-term current use of insulin ([facility]); Tremors of nervous system; Family history of coronary arteriosclerosis; CHELSEA (obstructive sleep apnea) nonadherent with cpap; Stage 3a chronic kidney disease ([facility]); Coronary artery disease involving [place] coronary artery of [place] heart without angina pectoris Aortic valve stenosi s, etiology of cardiac valve disease unspecified Start: 12-07-2022 End: 12-11-2022 ambulatory IDANIAJeff KWADWOLARA [facility] Start: 12-07-2022 End: 12-11-2022 Subsequent hospital visit by physician Georges Doe MD Work Phone: [facility] 5A Stepdown Comment on above: Severe aortic valve stenosis (Primary Dx) Start: 11-24-2022 End: 11-25-2022 ambulatory NOLAN JHA [facility] Start: 11-24-2022 End: 11-24-2022 Subsequent hospital visit by physician Kaylin Licensed Occupational Therapist Daryl CRAVEN Licensed Occupational Therapist Comment on above: Canceled (Case cance lled) Start: 09-28-2022 End: 09-30-2022 Evaluation and management of inpatient MICHAEL DUARTE [facility] Start: 03-31-2022 End: 04-01-2022 ambulatory Vale Contreras Facility:[facility] Start: 03-26-2021 End: 03-27-2021 ambulatory ELIZABETH TOMLINSON [facility] Start: 03-24-2021 End: 03-25-2021 ambulatory LAKESHIA HENRIQUEZ [facility] Start: 03-24-2021 End: 03-24-2021 Subsequent hospital visit by physician Michael [facility] Start: 03-19-2021 End: 03-20-2021 ambulatory PAM STINSON Facility: Start: 05-24-2013 End: 05-24-2013 Gordy Momin Jr Work Phone: [facility] Start: 04-26-2013 End: 04-26-2013 Gordy Momin Jr Work Phone: [facility] Start: 03-29-2013 End: 03-29-2013 Gordy Momin Jr Work Phone: [facility] Start: 02-01-2013 End: 02-01-2013 Gordy Momin Jr Work Phone: [facility] Start: 12-21-2012 End: 12-21-2012 Gordy Momin Jr Work Phone: [facility] Start: 11-02-2012 End: 11-02-2012 Office outpatient visit 15 minutes Gordy Momin Jr Work Phone: [facility] Start: 10-05-2012 End: 10-05-2012 Office outpatient visit 15 minutes Gordy Momin Jr Work Phone: [facility] Start: 08-31-2012 End: 08-31-2012 Office outpatient visit 15 minutes Gordy Momin Jr Work Phone: [facility] Start: 08-25-2012 End: 08-25-2012 Gordy Momin Jr Work Phone: [facility] Procedures Date Procedure Procedure Detail Performing Clinician Start: 08-06-2025 Antibody screen MARYCARMEN ANUPAMA MMANA Comment on above: Performed By: #### Renita HENSON CMP, [id number] #### [facility] ([id number]) [address] [place] [address], [address] [place] [address] Start: 07-17-2025 Antibody screen MARYCARMEN ANUPAMA MMANA Comment on above: Performed By: #### Renita HENSON CMP, [id number] #### [facility] ([id number]) [address], [address] [place] [address] Start: 07-12-2025 Antibody screen MARYCARMEN NEWMAN Comment on above: Performed By: #### 2 [id number] #### [facility] ([id number]) [address] [address], [address] [place] [address] Start: 07-12-2025 Adult depression scr eening assessment [...] exam abdo men 1 view Jazmine Do [employer] Work Phone: Start: 07-03-2025 BEDSIDE GLUCOSE Felix [...] Adult depression scr eening assessment Vj Gray [employer] Work Phone: Start: 05-15-2025 BEDSIDE GLUCOSE Felix Hallman MD Work Phone: Start: 05-15-2025 Comprehensive metabo lic panel Nayana Bermudez [employer] Work Phone: Start: 05-15-2025 EXTRA TUBES Felix Hallman MD Work Phone: Start: 05-15-2025 EXTRA TUBES SST TOP Tylerq marco antonio Hallman MD Work Phone: Start: 05-14-2025 BEDSIDE GLUCOSE Felix Hallman MD Work Phone: Start: 05-14-2025 Assay of magnesium Vj Gray [employer] Work Phone: Start: 05-14-2025 BEDSIDE GLUCOSE Felix Hallman MD Work Phone: Start: 05-14-2025 Ct head/brain w/o co ntrast material Vj Gray [employer] Work Phone: Start: 05-14-2025 BEDSIDE GLUCOSE Felix Hallman MD Work Phone: Start: 05-14-2025 End: 05-14-2025 Comprehensive metabolic panel Nayana Bermudez [employer] Work Phone: Start: 05-13-2025 BEDSIDE GLUCOSE Thania Martinez MD Work Phone: Start: 05-13-2025 Blood count hemoglobin Nayana Bermudez [employer] Work Phone: Start: 05-13-2025 EXTRA TUBES Thania Martinez MD Work Phone: Start: 05-13-2025 EXTRA TUBES PST TOP Sherman Martinez MD Work Phone: Start: 05-13-2025 BEDSIDE GLUCOSE Jack A Park DO Work Phone: Start: 05-13-2025 Ct lower extremity w /o contrast material Jazmine Bustillo [employer] Work Phone: Start: 05-13-2025 Assay of troponin quantitative Jazmine Bustillo [employer] Work Phone: Start: 05-13-2025 PM ED CRITICAL CARE Petros Bustillo [employer] Work Phone: Start: 05-13-2025 Blood gases any comb ination ph pco2 po2 co2 hco3 Jack A Park DO Work Phone: Start: 05-13-2025 EXTRA TUBES Jack A Pa rk DO Work Phone: Start: 05-13-2025 EXTRA TUBES BLUE TOP Je sse A Park DO Work Phone: Start: 05-13-2025 End: 05-13-2025 Culture bacterial blood aerobic w/id isolates [facility]azmine [facility]ustillo [facility] Work Phone: Start: 05-13-2025 C-reactive protein Silvina Bustillo [facility] Work Phone: Start: 05-13-2025 End: 05-13-2025 Comprehensive metabolic panel Jazmine Bustillo [facility] Work Phone: Start: 05-13-2025 Radiologic exam ches t single view Jazmine Bustillo [facility] Work Phone: Start: 05-13-2025 Ecg routine ecg w/le ast 12 lds trcg only w/o i&r Jazmine Bustillo [facility] Work Phone: Start: 04-04-2025 Adult depression scr eening assessment Pam Stinson [facility] Work Phone: Start: 03-26-2025 Basic metabolic pane l calcium total Delgado Danielle Leahy MD Work Phone: Start: 01-18-2025 End: [...] Adult depression scr eening assessment Pam Stinson [facility] Work Phone: Start: 11-24-2024 Follow-up visit Follow-up RADHA MORAN Start: 10-28-2024 Adult depression scr eening assessment Maddie Givens RN Work Phone: Start: 08-28-2024 Adult depression scr eening assessment Pam Stinson [facility] Work Phone: Start: 06-21-2024 Follow-up visit Follow-up PAM STINSON Start: 06-21-2024 Adult depression scr eening assessment Pam Mcneilillo [facility] Work Phone: Start: 05-03-2024 Adult depression scr eening assessment Pam Mcneilillo [facility] Work Phone: Start: 03-02-2024 Adult depression scr eening assessment Rosario Strong RN Start: 02-09-2024 Urnls dip stick/tabl et rgnt non-auto w/o micrscp Pam J Av [facility] Work Phone: Start: 02-09-2024 Adult depression scr eening assessment Pam Mcneilillo [facility] Work Phone: Start: 12-15-2023 Adult depression scr eening assessment Pam Stinson [facility] Work Phone: Start: 08-17-2023 Adult depression scr eening assessment Rosario Strong RN Start: 01-13-2023 Brncdilat rspse spmt ry pre&post-brncdilat admn 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 [facility] Work Phone: Start: 01-13-2023 Ct angiography chest w/contrast/noncontrast 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 [facility] Work Phone: Start: 12-11-2022 Glucose blood reagent strip Georges Doe MD Work Phone: Start: 12-10-2022 Glucose blood reagent strip Georges Doe MD Work Phone: Start: 12-10-2022 Glucose blood reagent strip Georges Doe MD Work Phone: Start: 12-10-2022 Glucose blood reagent strip Georges Doe MD Work Phone: Start: 12-10-2022 Basic metabolic pane l calcium total Rita Leos [facility] Work Phone: Start: 12-10-2022 Antibody screen Georges morales MD Work Phone: Start: 12-10-2022 End: 12-10-2022 Glucose blood reagent strip Georges Doe MD Work Phone: Start: 12-09-2022 End: 12-09-2022 Blood count hemoglobin Georges Doe MD Work Phone: Start: 12-09-2022 Glucose blood reagent strip Georges Doe MD Work Phone: Start: 12-09-2022 End: 12-09-2022 Transfusion of packed red blood cells Radha Guerreroher [facility] Work Phone: Start: 12-09-2022 Glucose blood reagent [...] Phone: Start: 12-07-2022 Glucose blood reagent strip Georgse Doe MD Work Phone: Start: 12-07-2022 End: [...] of blood/uric acid Lakeshia Henriquez APRN - [employer] Work Phone: Start: 05-24-2013 End: 05-24-2013 Diabetic Dilated Exam Kendall Villar MD Start: 05-24-2013 End: 05-24-2013 [facility]eval intermediate estab pt Kendall Villar MD Start: 04-26-2013 End: 04-26-2013 Diabetic Dilated Exam Kendall Villar MD Start: 04-26-2013 End: 04-26-2013 Intravitreal njx pharmacologic agt spx Kendall Villar MD Start: 04-26-2013 End: 04-26-2013 [facility]&eval intermediate estab pt Kendall Villar MD Start: 04-26-2013 End: 04-26-2013 Ranibizumab injection Kendall Villar MD Start: 03-29-2013 End: 03-29-2013 Diabetic Dilated Exam Kendall Villar MD Start: 03-29-2013 End: 03-29-2013 Intravitreal njx pharmacologic agt spx Kendall Villar MD Start: 03-29-2013 End: 03-29-2013 [facility]&eval comprhnsv estab pt 1/> Kendall Villar MD Start: 03-29-2013 End: 03-29-2013 Ranibizumab injection Kendall Villar MD Start: 02-01-2013 End: 02-01-2013 Intravitreal njx pharmacologic agt spx Kendall Villar MD Start: 02-01-2013 End: 02-01-2013 [facility] xm&eval intermediate estab pt Kendall Villar MD Start: 02-01-2013 End: 02-01-2013 Ranibizumab injection Kendall Villar MD Start: 12-21-2012 End: 12-21-2012 Intravitreal njx pharmacologic agt spx Kendall Villar MD Start: 12-21-2012 End: 12-21-2012 [facility] xm&eval comprhnsv estab pt 1/> Kendall Villar MD [...] Treatment Date Care Activity Detail Author Start: 08-06-2026 Tobacco Screening Tobacco Screening [facility] Start: 08-01-2026 Tobacco Screening Tobacco Screening [facility] Start: 07-13-2026 Tobacco Screening Tobacco Screening [facility] Start: 07-12-2026 Depression Screening Depression Screening [facility] Start: 07-02-2026 Tobacco Screening Tobacco Screening [facility] Start: 06-05-2026 Depression Screening Depression Screening [facility] Start: 06-05-2026 Fall Risk Screening Fall Risk Screening [facility] Start: 06-05-2026 [facility] Scre[facility] Start: 04-04-2026 Depression Screening Depression Screening [facility] Start: 04-04-2026 Fall Risk Screening Fall Risk Screening [facility] Start: 04-04-2026 Tobacco Screening Tobacco Screening [facility] Start: 04-03-2026 Tobacco Screening Tobacco Screening [facility] Start: 03-28-2026 Tobacco Screening Tobacco [facility] Start: 03-26-2026 Tobacco Screening Tobacco Screening [facility] Start: 03-22-2026 Tobacco Screening Tobacco Screening [facility] Start: 03-20-2026 Fall Risk Screening Fall Risk Screening [facility] Start: 03-20-2026 Tobacco Screening Tobacco Screening [facility] Start: 03-14-2026 Tobacco Screening Tobacco Screening [facility] Start: 02-14-2026 Tobacco Screening Tobacco Screening [facility] Start: 02-03-2026 Urine screening for protein Diabetes: Urine Protein Screening [facility] Start: 01-25-2026 Tobacco Screening Tobacco Screening [facility] Start: 01-22-2026 Tobacco Screening Tobacco Screening [facility] Start: 01-10-2026 Tobacco Screening Tobacco Screening [facility] Start: 11-28-2025 Depression Screening Depression Screening [facility] Start: 11-28-2025 Fall Risk Screening Fall Risk Screening [facility] Start: 11-28-2025 Tobacco Screening Tobacco Screening [facility] Start: 11-17-2025 Tobacco Screening Tobacco Screening [facility] Start: 11-09-2025 Tobacco Screening Tobacco Screening [facility] Start: 10-28-2025 Depression Screening Depression Screening [facility] Start: 10-11-2025 Tobacco Screening Tobacco [facility]ening [facility] Start: 09-14-2025 End: 09-14-2025 Patient encounter procedure 09/14/2025 10:15 AM EDT Office Visit [facility]phany [facility] - [facility] [address] [place] [phone] Casimiro Muñoz MD [address] [place] [address] Stephany Carnes [facility] Start: 09-05-2025 End: 09-05-2025 Patient encounter procedure 09/05/2025 1:00 PM EDT Office Visit [facility] [address] [place] [address] Vj Gray, [employer] [address], [place] [phone] [facility] Start: 09-03-2025 End: 09-03-2025 Patient encounter procedure 09/03/2025 8:00 AM EDT Office Visit [facility] [address] [phone] Tawny Engel MD [address] [place] [address] Whitney Miles PAOrtizC [address] [place] [address] [facility] Start: 08-31-2025 End: 08-31-2025 Patient encounter procedure 08/31/2025 11:00 AM EDT [facility] [address] [place] [phone] [facility] Stephany L [facility] Start: 08-28-2025 Adult BMI Screening Adult BMI Screening [facility] Start: 08-28-2025 Depression Screening Depression Screening [facility] Start: 08-28-2025 Fall Risk Screening Fall Risk Screening [facility] Start: 08-28-2025 Tobacco Screening Tobacco Screening [facility] Start: 08-24-2025 Adult BMI Screening Adult BMI Screening [facility] Start: 08-23-2025 Tobacco Screening Tobacco Screening [facility] Start: 08-22-2025 End: 08-22-2025 Patient encounter procedure 08/22/2025 9:45 AM EDT Office Visit [facility]/Trauma [facility] Adult Reconstruction [address] [phone] Ra Marinelli MD [address] [place] [address] [facility] Start: 08-20-2025 End: 08-20-2025 Patient encounter procedure 08/20/2025 1:00 PM EDT Office Visit [facility] [address] [place] [address] Tawny Engel MD [address] [place] [address] [facility] Start: 08-12-2025 Adult BMI Screening Adult BMI Screening [facility] Start: 08-12-2025 Tobacco Screening Tobacco Screening [facility] Start: 08-06-2025 End: 08-06-2025 Admission to same day surgery center 08/06/2025 7:30 AM EDT - 08/06/2025 9:45 AM EDT Surgery [facility] [address] [place] [phone] Ra Marinelli MD [address] [place] [address] INSERTION INTRAMEDULLARY NAIL FEMUR [59596 (CPT )] [facility] Comment on above: INSERTION INTRAMEDULLARY NAIL FEMUR [274 95 (CPT )] Start: 08-06-2025 End: 08-06-2025 Proph tx n/p/pltwr w/wo methylmethacrylate femur INSERTION INTRAMEDULLARY NAIL FEMUR Lesion of left femur 08/06/2025 7:30 AM EDT [facility] Start: 08-06-2025 Subsequent hospital visit by physician 08/06/2025 7:30 AM EDT Hospital Encounter [facility] [address] [place] [address] Ra Marinelli MD [address] [place] [address] [facility] Start: 08-01-2025 End: 08-01-2025 Patient encounter procedure 08/01/2025 1:15 PM EDT [facility] [address] [place] [phone] Ra Marinelli MD [address] [place] [address] [facility]Trauma [facility] Adult Re[facility] Start: 07-30-2025 End: 07-30-2025 Patient encounter procedure 07/30/2025 9:15 AM EDT Office Visit [facility] [address] [place] [address] Ra Marinelli MD [address] [place] [address] [facility]/Trauma and Adult Reconstruction Start: 07-16-2025 Influenza vaccination [facility] Start: 07-12-2025 End: 07-05-2026 Basic metabolic 2000 panel - Serum or Plasma Basic Metabolic Panel Lab Routine Intractable nausea and vomiting Type 2 diabetes mellitus without complication, without long-term current use of insulin ([facility] Generalized weakness Expected: 07/12/2025 (Approximate), Expires: 07/05/2026 [facility] Work Phone: Comment on above: Expected: 07/12/2025 (Approximate), Expi res: 07/05/2026 Start: 07-12-2025 End: 07-05-2026 CBC W Auto Differential panel - Blood CBC auto differential Lab Routine Iron deficiency anemia due to chronic blood loss Expected: 07/12/2025 (Approximate), Expires: 07/05/2026 [facility] Comment on above: Expected: 07/12/2025 (Approximate), Expi res: 07/05/2026 Start: 07-12-2025 End: 07-05-2026 Magnesium [Mass/volume] in Serum or Plasma Magnesium Lab Routine Hypomagnesemia Expected: 07/12/2025 (Approximate), Expires: 07/05/2026 [facility] Comment on above: Expected: 07/12/2025 (Approximate), Expi res: 07/05/2026 Start: 07-10-2025 End: 07-10-2025 Patient encounter procedure [facility] Start: 06-28-2025 Tobacco Screening Tobacco Screening [facility] Start: 06-26-2025 Bacteria identified in Urine by Culture Urine Culture [facility] Start: 06-26-2025 Urine culture [facility] Start: 06-25-2025 Adult BMI Screening Adult BMI Screening [facility] Start: 06-25-2025 Tobacco Screening Tobacco Screening [facility] Start: 06-21-2025 Depression Screening Depression Screening [facility] Start: 06-21-2025 Fall Risk Screening Fall Risk Screening [facility] Start: 06-06-2025 End: 06-06-2025 Patient encounter procedure 06/06/2025 1:30 PM EDT Office Visit [facility] [address] [place] [address] Joie Echavarria PA [address] [place] [address] Acute right hip pain (Primary Dx) [facility] Comment on above: Acute right hip pain (Primary Dx) Start: 05-22-2025 End: 05-15-2026 Basic metabolic 2000 panel - Serum or Plasma Basic Metabolic Panel Lab Routine Type 2 diabetes mellitus with hypoglycemia without coma, with long-term current use of insulin ([facility]) Expected: 05/22/2025 (Approximate), Expires: 05/15/2026 [facility] Work Phone: Comment on above: Expected: 05/22/2025 (Approximate), Expi res: 05/15/2026 Start: 05-03-2025 End: 05-03-2025 Patient encounter procedure 05/03/2025 2:15 PM EDT Office Visit Stephany [facility] [address] [place] [phone] Casimiro Muñoz MD [address] [place] [address] [address] [place] [address] Stephany L Sabine [facility] Start: 05-03-2025 Adult BMI Screening Adult BMI Screening [facility] Start: 05-03-2025 Depression Screening Depression Screening [facility] Start: 05-03-2025 Fall Risk Screening Fall Risk Screening [facility] Start: 05-03-2025 Tobacco Screening Tobacco Screening [facility] Start: 04-10-2025 End: 04-10-2025 Patient encounter procedure 04/10/2025 3:20 PM EDT [facility] [address] [place] [address] Pam Stinson, [employer] [address] [place] [address] [facility] Start: 04-04-2025 End: 04-04-2025 Patient encounter procedure 04/04/2025 9:00 AM EDT [facility] [address] [place] [address] Pam Stinson, [employer] [address] [place] [address] [facility] Start: 04-03-2025 End: 04-03-2025 ambulatory 04/03/2025 8:00 AM EDT Infusion Stephany Trice [facility] [address] [place] [phone] Stephany Trice [facility] Start: 04-01-2025 End: 04-01-2025 ambulatory 04/01/2025 8:00 AM EDT Infusion Stephany Landaverde [facility] [address] [place] [phone] Stephany L [facility] Start: 03-30-2025 End: 03-30-2025 ambulatory 03/30/2025 8:00 AM EDT Infusion Stephany Landaverde [facility] [address] [place] [phone] Stephany Landaverde [facility] - Medical Oncology Start: 03-28-2025 End: 03-28-2025 ambulatory 03/28/2025 8:30 AM EDT Infusion Stephany Lanadverde [facility] [address] [place] [phone] Stephany Landaverde [facility] - [facility] Oncology Start: 03-26-2025 End: 03-26-2025 ambulatory Stephany Landaverde [facility] - Medical Oncology Start: 03-24-2025 End: 03-24-2025 ambulatory 03/24/2025 8:00 AM EDT Infusion Stephany Landaverde [facility] [address] [place] [phone] Stephany Landaverde [facility] Oncology Start: 03-22-2025 End: 03-22-2025 ambulatory 03/22/2025 8:30 AM EDT Infusion Stephany Landavrede [facility] [address] [place] [phone] Stephany Landaverde [facility] Start: 03-20-2025 End: 03-20-2025 ambulatory 03/20/2025 8:00 AM EDT Infusion Stephany Landaverde [facility] [address] [place] [phone] Stephany Landaverde [facility] Medical Oncology Start: 03-18-2025 End: 03-18-2025 ambulatory Stephany correa [facility] Medical Oncology Start: 03-16-2025 End: 03-16-2025 ambulatory Stephany correa [facility] Medical Oncology Start: 03-14-2025 End: 03-14-2025 ambulatory Stephany correa [facility] Medical Oncology Start: 03-12-2025 End: 03-12-2025 ambulatory 03/12/2025 8:00 AM EDT Infusion Stephany Landaverde [facility] Medical Oncology [address] [place] [address] Stephany Landaverde [facility] Medical Oncology Start: 03-09-2025 Adult BMI Screening Adult BMI Screening [facility] Start: 03-08-2025 Tobacco Screening Tobacco Screening [facility] Start: 03-04-2025 Hemoglobin A1c measurement Diabetes: Hemoglobin A1C [facility] Start: 03-02-2025 Depression Screening Depression Screening [facility] Start: 03-02-2025 Fall Risk Screening Fall Risk Screening [facility] Start: 03-01-2025 End: 03-01-2025 Patient encounter procedure 03/01/2025 2:00 PM EDT Appointment [facility] - Mammography/DEXA Imaging [address] [place] [phone] Casimiro Muñoz MD [address] [place] [address] [address] [place], [place] [id number] [facility] - Mammography/DEXA Imaging Start: 02-19-2025 Cuca Dee 4 Weeks IO AVN OS(2-3) NO OCT [facility] Work Phone: Start: 02-08-2025 Adult BMI Follow Up Plan Adult BMI Follow Up Plan [facility] Start: 01-25-2025 End: 01-25-2025 Patient encounter procedure 01/25/2025 2:15 PM EDT Office Visit Stephanyneida Landaverde [facility] [address] [place] [address] Casimiro Muñoz MD [address] [facility] [address] [place] [phone] Stephany Landaverde [facility] Start: 01-22-2025 End: 01-22-2025 Patient encounter procedure 01/22/2025 1:40 PM EDT [facility] - [facility] Medicine [address] [place] [address] Pam Stinson, [employer] [address] [place] [phone] [facility] Internal Medicine - Family Medicine Start: 01-18-2025 Smoking cessation education Tobacco cessation counseling [facility] Start: 12-15-2024 Adult BMI Follow Up Plan Adult BMI Follow Up Plan [facility] Start: 12-15-2024 Adult BMI Screening Adult BMI Screening [facility] Start: 12-15-2024 Depression Screening Depression Screening [facility] Start: 12-15-2024 Fall Risk Screening Fall Risk Screening [facility] Start: 12-15-2024 Tobacco Screening Tobacco Screening [facility] Start: 11-28-2024 End: 11-28-2024 Patient encounter procedure 11/28/2024 2:40 PM EST Office Visit [facility] Internal Medicine - Family Medicine [address] [place] [address] Pam Stinson, [employer] [address] [place] [address] [facility] Internal Medicine - Family Medicine Start: 11-25-2024 Adult BMI Screening Adult BMI Screening [facility] Start: 11-24-2024 End: 11-24-2024 Patient encounter procedure 11/24/2024 2:15 PM EST Office Visit [facility] Cardiology [address] [place] [phone] Radha Moran MD [address] [place] [address] [facility] Cardiology Start: 11-22-2024 End: 11-22-2024 Patient encounter procedure 11/22/2024 2:40 PM EST Office Visit [facility] Internal Medicine - Family Medicine [address] [place] [phone] Pam Stinson, [employer] [address] [place] [phone] [facility] Internal Medicine - Family Medicine Start: 09-28-2024 Tobacco Screening Tobacco Screening [facility] Start: 09-13-2024 End: 09-13-2024 Patient encounter procedure 09/13/2024 2:00 PM EDT Appointment [facility] - Cardiovascular [address] [place] [phone] [facility] - Cardiovascular Start: 09-08-2024 End: 09-08-2024 Patient encounter procedure 09/08/2024 2:15 PM EDT Office Visit [facility] - Medical Oncology [facility] [place] [address] Casimiro Muñoz MD [address] [place] [address] [address] [place], [place] [id number] Stephany Carnes [facility] Oncology Start: 09-08-2024 End: 03-09-2025 CBC W Auto Differential panel - Blood CBC auto differential Lab Routine 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 female breast, unspecified estrogen receptor status (CMS-HCC) 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 breast in female, estrogen receptor positive (CMS-HCC) Expected: 09/08/2024 (Approximate), Expires: 03/09/2025 [facility] Comment on above: Expected: 09/08/2024 (Approximate), Expi res: 03/09/2025 Start: 09-08-2024 End: 03-09-2025 Comprehensive metabolic 2000 panel - Serum or Plasma Comprehensive metabolic panel Lab Routine 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 female breast, unspecified estrogen receptor status (CMS-HCC) 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 breast in female, estrogen receptor positive (CMS-HCC) Expected: 09/08/2024 (Approximate), Expires: 03/09/2025 [facility] Comment on above: Expected: 09/08/2024 (Approximate), Expi res: 03/09/2025 Start: 08-31-2024 Adult BMI Follow Up Plan Adult BMI Follow Up Plan [facility] Start: 08-17-2024 Depression Screening Depression Screening [facility] Start: 08-10-2024 Fall Risk Screening Fall Risk Screening [facility] Start: 08-10-2024 Medicare Annual Wellness (AWV) Medicare Annual Wellness (AWV) [facility] Start: 08-10-2024 Medicare Annual Wellness Visit Medicare Annual Wellness Visit [facility] Start: 08-02-2024 End: 08-02-2024 Patient encounter procedure 08/02/2024 1:00 PM EDT Office Visit [facility] Internal Medicine - Family Medicine [address] [place] [phone] Pam Stinson, [employer] [address] [place] [address] [facility] - [facility] Start: 07-16-2024 Influenza vaccination Influenza Vaccine [facility] Start: 07-11-2024 End: 07-11-2024 Patient encounter procedure 07/11/2024 2:30 PM EDT [facility] Neu[facility] [address] [place] [phone] Luis Oliver MD [address] [place] [address], [address], [address], [address] [place] [address] [facility] Neu[facility] Start: 03-09-2024 End: 03-09-2024 Patient encounter procedure 03/09/2024 3:15 PM EDT Office Visit Stephany Landaverde [facility] Medical Oncology [address] [place] [address] Casimiro Muñoz MD [address] [place] [address] Stephany Landaverde [facility] Start: 03-09-2024 End: 03-09-2025 MG Breast Diagnostic Mammography diagnostic bilateral with CAD Imaging Routine 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 female breast, unspecified estrogen receptor status (CMS-HCC) 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 breast in female, estrogen receptor positive (CMS-HCC) Expected: 03/09/2024, Expires: 03/09/2025 [employer] Work Phone: Comment on above: Expected: 03/09/2024, Expires: Start: 02-25-2024 End: 11-25-2024 PT Skull base to mid-thigh PET CT skull to thigh Imaging Routine 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 female breast, unspecified estrogen receptor status (CMS-HCC) 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 breast in female, estrogen receptor positive (CMS-HCC) Expected: 02/25/2024, Expires: 11/25/2024 [employer] Work Phone: Comment on above: Expected: 02/25/2024, Expires: Start: 02-24-2024 End: 11-25-2024 Cancer antigen 15-3 Cancer antigen 15-3 Lab Routine 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 female breast, unspecified estrogen receptor status (CMS-HCC) 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 breast in female, estrogen receptor positive (CMS-HCC) Expected: 02/24/2024 (Approximate), Expires: 11/25/2024 [email or web address] Comment on above: Expected: 02/24/2024 (Approximate), Expi res: 11/25/2024 Start: 02-24-2024 End: 11-25-2024 Cancer antigen 27-29 Cancer antigen 27-29 Lab Routine 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 female breast, unspecified estrogen receptor status (CMS-HCC) 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 breast in female, estrogen receptor positive (CMS-HCC) Expected: 02/24/2024 (Approximate), Expires: 11/25/2024 [facility] Comment on above: Expected: 02/24/2024 (Approximate), Expi res: 11/25/2024 Start: 02-24-2024 End: 11-25-2024 CBC W Auto Differential panel - Blood CBC auto differential Lab Routine 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 female breast, unspecified estrogen receptor status (CMS-HCC) 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 breast in female, estrogen receptor positive (CMS-HCC) Expected: 02/24/2024 (Approximate), Expires: 11/25/2024 [facility] Comment on above: Expected: 02/24/2024 (Approximate), Expi res: 11/25/2024 Start: 02-24-2024 End: 11-25-2024 Comprehensive metabolic 2000 panel - Serum or Plasma Comprehensive metabolic panel Lab Routine 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 female breast, unspecified estrogen receptor status (CMS-HCC) 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 breast in female, estrogen receptor positive (CMS-HCC) Expected: 02/24/2024 (Approximate), Expires: 11/25/2024 [facility] Comment on above: Expected: 02/24/2024 (Approximate), Expi res: 11/25/2024 Start: 01-13-2024 End: 01-13-2024 Patient encounter procedure 01/13/2024 1:00 PM EST [facility] - [facility] Medicine [address] [place] [address] Pam Stinson, [employer] [address] [place] [address] [facility] - Family Medicine Start: 09-02-2023 Lipid panel Lipids [employer] Start: 02-02-2023 End: 02-02-2023 Patient encounter procedure 02/02/2023 Appointment IP Unit [facility] Licensed Occupational Therapist Start: 01-18-2023 End: 01-14-2024 Basic metabolic 2000 panel - Serum or Plasma Basic Metabolic Panel Lab STAT Severe aortic valve stenosis Expected: 01/18/2023, Expires: 01/14/2024 [employer] Phone: Comment on above: Expected: 01/18/2023, Expires: 4 Start: 12-17-2022 End: 12-10-2023 Basic metabolic 2000 panel - Serum or Plasma Basic Metabolic Panel Lab Routine Severe aortic valve stenosis Expected: 12/17/2022, Expires: 12/10/2023 [employer] Phone: Comment on above: Expected: 12/17/2022, Expires: 4 Start: 12-17-2022 End: 12-10-2023 Hemoglobin and Hematocrit Hemoglobin and Hematocrit Lab Routine Severe aortic valve stenosis Expected: 12/17/2022, Expires: 12/10/2023 [employer] Phone: Comment on above: Expected: 12/17/2022, Expires: 4 Start: 09-28-2022 Annual Wellness Visit (AWV) Annual Wellness Visit (AWV) [employer] Start: 07-16-2021 Influenza vaccination Flu vaccine (Season Ended) [employer] Phone: Start: 04-01-2021 COVID-19 Vaccine (3 - Booster for Pfizer series) COVID-19 Vaccine (3 - Booster for Pfizer series) [employer] Start: 03-04-2021 COVID-19 Vaccine (3 - Pfizer risk series) COVID-19 Vaccine (3 - Pfizer risk series) [facility] [employer] Start: 1996 Shingles vaccine (1 of 2) Shingles vaccine (1 of 2) [employer] Start: 1965 Administration of varicella zoster vaccine Zoster (Shingles) Vaccine (1 of 2) [employer] Start: 1965 DTaP,Tdap and Td Vaccines (1 - Tdap) DTaP,Tdap and Td Vaccines (1 - Tdap) [employer] Start: 1965 DTaP/Tdap/Td vaccine (1 - Tdap) DTaP/Tdap/Td vaccine (1 - Tdap) [facility] [employer] Start: 1964 Hepatitis C screening [facility] Start: 1962 COVID-19 Vaccine (1) COVID-19 Vaccine (1) [employer] Phone: Start: 1958 Depression Screen [facility] Start: 1956 Glaucoma screening Diabetes: Retinopathy Screening [facility] Start: 1946 Creatinine measurement Creatinine monitoring [employer] Phone: Start: 1946 Potassium [facility] Bacteria identified in Blood by Aerobe culture [employer] Phone: End: 02-08-2025 Bacteria identified in Urine by Culture Urine culture (clean catch) Microbiology Routine Acute cystitis without hematuria 1 Occurrences starting 02/09/2024 until 02/08/2025 [employer] Phone: Comment on above: 1 Occurrences starting 02/09/2024 until 02/08/2025 Basic metabolic 2000 panel - Serum or Plasma Basic metabolic panel Lab Routine Staphylococcus aureus bacteremia with sepsis [facility] MRSA (methicillin resistant Staphylococcus aureus) 03/12/2025 8:20 AM EDT [employer] Basic metabolic 2000 panel - Serum or Plasma Basic metabolic panel Lab Routine Staphylococcus aureus bacteremia with sepsis ([facility]) MRSA (methicillin resistant Staphylococcus aureus) 03/20/2025 9:02 AM EDT [employer] Phone: Basic metabolic 2000 panel - Serum or Plasma Basic metabolic panel Lab Routine Staphylococcus aureus bacteremia with sepsis ([facility]) MRSA (methicillin resistant Staphylococcus aureus) 04/03/2025 8:50 AM EDT [employer] End: 12-07-2022 Blood Bank Specimen [employer] Phone: Comment on above: Once for 1 Occurrences starting 12/07/19 until 12/07/2022 End: 11-25-2024 Cancer antigen 15-3 Cancer antigen 15-3 Lab Routine 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 female breast, unspecified estrogen receptor status (CMS-HCC) every 3 months for 50 Occurrences starting 11/25/2023 until 11/25/2024 [employer] Comment on above: every 3 months for 50 Occurrences starti ng 11/25/2023 until 11/25/2024 End: 01-15-2026 Cancer antigen 15-3 Cancer antigen 15-3 Lab Routine 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 breast in female, estrogen receptor positive (CMS-HCC) 1 Occurrences starting 01/15/2025 until 01/15/2026 [employer] Comment on above: 1 Occurrences starting 01/15/2025 until 01/15/2026 End: 11-25-2024 Cancer antigen 27-29 Cancer antigen 27-29 Lab Routine 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 female breast, unspecified estrogen receptor status (CMS-HCC) every 3 months for 50 Occurrences starting 11/25/2023 until 11/25/2024 [employer] Comment on above: every 3 months for 50 Occurrences starti ng 11/25/2023 until 11/25/2024 End: 01-15-2026 Cancer antigen 27-29 Cancer antigen 27-29 Lab Routine 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 breast in female, estrogen receptor positive (CMS-HCC) 1 Occurrences starting 01/15/2025 until 01/15/2026 [employer] Comment on above: 1 Occurrences starting 01/15/2025 until 01/15/2026 End: 11-24-2022 Catheterization and angiography procedure details panel Cardiac Catheterization Cardiac Cath Routine One Time for 1 Occurrences starting 11/24/2022 until 11/24/2022 [employer] Phone: Comment on above: One Time for 1 Occurrences starting 11/15 until 11/24/2022 End: 12-07-2022 Catheterization and angiography procedure details panel Cardiac Catheterization Cardiac Cath Routine One Time for 1 Occurrences starting 12/07/2022 until 12/07/2022 [facility] [employer] Work Phone: Comment on above: One Time for 1 Occurrences starting 11/16 until 12/07/2022 End: 11-25-2024 CBC W Auto Differential panel - Blood CBC with auto diff Lab Routine 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 female breast, unspecified estrogen receptor status ([facility]) every 3 months for 50 Occurrences starting 11/25/2023 until 11/25/2024 [employer] Work Phone: Comment on above: every 3 months for 50 Occurrences starti ng 11/25/2023 until 11/25/2024 End: 01-15-2026 CBC W Auto Differential panel - Blood CBC with auto diff Lab Routine 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 breast in female, estrogen receptor positive ([facility]) 1 Occurrences starting 01/15/2025 until 01/15/2026 [employer] Work Phone: Comment on above: 1 Occurrences starting 01/15/2025 until 01/15/2026 CBC W Auto Different ial panel - Blood CBC with auto diff Lab Routine Staphylococcus aureus bacteremia with sepsis ([facility]) MRSA (methicillin resistant Staphylococcus aureus) 03/12/2025 8:20 AM EDT [employer] CBC W Auto Different ial panel - Blood CBC with auto diff Lab Routine Staphylococcus aureus bacteremia with sepsis ([facility]) MRSA (methicillin resistant Staphylococcus aureus) 03/20/2025 9:02 AM EDT [employer] CBC W Auto Different ial panel - Blood CBC with auto diff Lab Routine Staphylococcus aureus bacteremia with sepsis ([facility]) MRSA (methicillin resistant Staphylococcus aureus) 03/26/2025 9:44 AM EDT [employer] Work Phone: CBC W Auto Different ial panel - Blood CBC with auto diff Lab Routine Staphylococcus aureus bacteremia with sepsis ([facility]) MRSA (methicillin resistant Staphylococcus aureus) 04/03/2025 8:50 AM EDT [employer] CK Total CK Total Lab Rou burt Staphylococcus aureus bacteremia with sepsis ([facility]) MRSA (methicillin resistant Staphylococcus aureus) 03/12/2025 8:20 AM EDT [employer] Work Phone: CK Total CK Total Lab Rou burt Staphylococcus aureus bacteremia with sepsis ([facility]) MRSA (methicillin resistant Staphylococcus aureus) 04/03/2025 8:50 AM EDT [employer] Work Phone: End: 11-25-2024 Comprehensive metabolic 2000 panel - Serum or Plasma Comprehensive metabolic panel Lab Routine Malignant neoplasm of upper-outer quadrant of right female breast, unspecified estrogen receptor status ([facility] every 3 months for 50 Occurrences starting 11/25/2023 until 11/25/2024 [employer] Comment on above: every 3 months for 50 Occurrences starti ng 11/25/2023 until 11/25/2024 End: 01-15-2026 Comprehensive metabolic 2000 panel - Serum or Plasma Comprehensive metabolic panel Lab Routine Malignant neoplasm of upper-outer quadrant of right breast in female, estrogen receptor positive ([facility]) 1 Occurrences starting 01/15/2025 until 01/15/2026 [employer] Comment on above: 1 Occurrences starting 01/15/2025 until 01/15/2026 End: 01-13-2023 CT CARDIAC W C STC MORP CARD ONLY [employer] Phone: Comment on above: 1 Occurrences starting 01/13/2023 until 01/13/2023 End: 12-07-2022 EKG 12 lead EKG 12 lead ECG Routine One Time for 1 Occurrences starting 12/07/2022 until 12/07/2022 [employer] Phone: Comment on above: One Time for 1 Occurrences starting 11/16 until 12/07/2022 Fingerstick glucose checks Finge rstick glucose checks Point of Care Testing Routine Intractable nausea and vomiting Type 2 diabetes mellitus without complication, without long-term current use of insulin ([facility] Generalized weakness Ordered: 07/05/2025 [employer] Comment on above: Ordered: 07/05/2025 Glucose [Mass/volume ] in Serum or Plasma POCT glucose Point of Care Testing Routine 4X Daily (AC & HS) until discontinued starting 12/07/2022 [employer] Phone: Comment on above: 4X Daily (AC & HS) until discontinued st arting 12/07/2022 End: 12-10-2022 Hemoglobin and Hematocrit Hemoglobin and Hematocrit Lab STAT Post Transfusion Post Transfusion Post Transfustion for 1 Occurrences starting 12/09/2022 until 12/10/2022 [employer] Phone: Comment on above: Post Transfusion Post Transfusion Post T ransfustion for 1 Occurrences starting 12/09/2022 until 12/10/2022 Oxygen therapy [Mini mum Data Set] Initiate Oxygen Therapy Protocol Respiratory Care Routine As Needed until discontinued starting 11/24/2022 [employer] Phone: Comment on above: As Needed until discontinued starting Oxygen therapy [Mini mum Data Set] Initiate Oxygen Therapy Protocol Respiratory Care Routine As Needed until discontinued starting 12/07/2022 [employer] Phone: Comment on above: As Needed until discontinued starting Oxygen therapy [Mini mum Data Set] Initiate Oxygen Therapy Protocol Respiratory Care Routine As Needed until discontinued starting 12/07/2022 [employer] Comment on above: As Needed until discontinued starting End: 03-09-2026 PICC Line Removal PICC Line Removal Procedures Routine Staphylococcus aureus bacteremia with sepsis ([facility]) 1 Occurrences starting 03/09/2025 until 03/09/2026 [employer] Work Phone: Comment on above: 1 Occurrences starting 03/09/2025 until 03/09/2026 End: 11-24-2022 POC CHEM8 INCLUDES CALC. ANION GAP POC CHEM8 INCLUDES CALC. ANION GAP Point of Care Testing STAT One Time for 1 Occurrences starting 11/24/2022 until 11/24/2022 [employer] Phone: Comment on above: One Time for 1 Occurrences starting 11/15 until 11/24/2022 End: 12-07-2022 POC CHEM8 INCLUDES CALC. ANION GAP POC CHEM8 INCLUDES CALC. ANION GAP Point of Care Testing STAT One Time for 1 Occurrences starting 12/07/2022 until 12/07/2022 [employer] Phone: Comment on above: One Time for 1 Occurrences starting 11/16 until 12/07/2022 End: 12-07-2022 PREPARE RBC (CROSSMATCH), 1 Units PREPARE RBC (CROSSMATCH), 1 Units Blood Bank STAT Once for 1 Occurrences starting 12/07/2022 until 12/07/2022 [employer] Phone: Comment on above: Once for 1 Occurrences starting 12/07/19 until 12/07/2022 End: 12-08-2022 PREPARE RBC (CROSSMATCH), 1 Units PREPARE RBC (CROSSMATCH), 1 Units Blood Bank Routine Once for 1 Occurrences starting 12/08/2022 until 12/08/2022 [employer] Phone: Comment on above: Once for 1 Occurrences starting 12/08/19 until 12/08/2022 End: 12-09-2022 PREPARE RBC (CROSSMATCH), 1 Units PREPARE RBC (CROSSMATCH), 1 Units Blood Bank Routine Once for 1 Occurrences starting 12/09/2022 until 12/09/2022 [employer] Phone: Comment on above: Once for 1 Occurrences starting 12/09/19 until 12/09/2022 End: 12-08-2022 PREVIOUS SPECIMEN [employer] Phone: Comment on above: Once for 1 Occurrences starting 12/08/19 until 12/08/2022 Immunizations Immunization Date Immunization Notes Care Provider [facility] 08-28-2024 Seasonal trivalent influenza vaccine, adjuvanted, preservative free Pam Stinson [employer] [facility] Phone[facility] 08-28-2024 Immunization, In Clinic,; Translations: [Drug or medicament (substance)] Pam Stinson [employer] Work Phone: [employer] 08-28-2024 influenza virus vacc ine, unspecified formulation Kimberley Escudero [facility] 04-24-2024 tuberculin skin test ; unspecified formulation [facility] 04-12-2024 tuberculin skin test ; unspecified formulation [facility] 08-10-2023 Influenza Vaccine, Quadrivalent, Adjuvanted Rosario Strong RN [facility] 08-10-2023 influenza virus vacc ine, unspecified formulation Rosario Strong RN [facility] 04-13-2023 tuberculin skin test ; unspecified formulation [facility] 04-06-2023 tuberculin skin test ; unspecified formulation [facility] 08-06-2022 Influenza Vaccine, Quadrivalent, Adjuvanted Rosario Strong RN [facility] 08-27-2021 influenza, high dose seasonal, preservative-free Rosario Strong RN [facility] 05-28-2021 pneumococcal conjuga te vaccine, 13 valent Rosario Strong RN [facility] 02-04-2021 COVID-19, mRNA, LNP- S, PF, 30mcg/0.3mL Dose Rosario Strong RN [facility] 01-07-2021 COVID-19, mRNA, LNP- S, PF, 30mcg/0.3mL Dose Rosario Strong RN [facility] 11-25-2020 influenza, injectabl e, quadrivalent, preservative free Rosario Strong RN [facility] 08-30-2020 Influenza, High-dose , Quadrivalent Rosario Strong RN [facility] 05-16-2020 pneumococcal polysaccharide vaccine, 23 valent [facility] 05-10-2020 tuberculin skin test ; unspecified formulation [facility] 09-14-2019 influenza, injectabl e, quadrivalent, contains preservative Rosario Strong RN [facility] 09-11-2019 influenza, injectabl e, quadrivalent, preservative free Rosario Strong RN [facility] 08-31-2018 influenza, injectabl e, quadrivalent, preservative free Rosario Strong RN [facility] 09-07-2017 influenza, injectabl e, quadrivalent, preservative free Rosario Strong RN [facility] 07-10-2015 pneumococcal polysaccharide vaccine, 23 valent Ros[email or web address] 06-29-2015 pneumococcal polysaccharide vaccine, 23 valent Kimberley Escudero [facility] Payers Date Payer Category Payer Self-pay 2024 Medicare (Managed Care) MITESH Patel [employer] [id number] 2022 Medicare HMO [id number] 2022 Medicare [id number]. [id number] 2022 Medicaid [id number] 2022 Medicaid [id number] 1.13.424.2. [id number] 2017 Unknown [id number] 2011 Medicare [id number]. 1.13.424.2. [id number] 2011 Medicare [id number] 1959 Medicaid [id number] 1945 Unknown [id number] 2.16.840.1.793239.3.579.2. 593 1946 Unknown [id number] 2.16.840.1.901114.3.579.2. 647 1945 Unknown [id number] 2.16.840.1.154041.3.579.2. 175 1946 Unknown [id number] 2.16.840.1.215264.3.579.2. 175 1946 Unknown [id number] 2.16.840.1.143402.3.579.2. 175 1946 Unknown [id number] 2.16.840.1.573426.3.579.2. 175 1946 Unknown [id number] 2.16.840.1.094684.3.579.2. 175 1946 Unknown [id number] 2.16.840.1.386948.3.579.2. 175 1946 Unknown [id number] 2.16.840.1.195074.3.579.2. 175 1946 Unknown [id number] 2.16.840.1.960761.3.579.2. 175 1946 Unknown [id number] 2.16.840.1.761358.3.579.2. 1346 1946 Unknown [id number] 2.16.840.1.589184.3.579.2. 1346 1946 Unknown [id number] 2.16.840.1.059631.3.579.2. 1285 1946 Unknown [id number] 2.16.840.1.361500.3.579.2. 1285 1946 Unknown [id number] 2.16.840.1.265250.3.579.2. 1285 1946 Unknown [id number] 2.16.840.1.282251.3.579.2. 1285 1946 Unknown [id number] 2.16.840.1.491058.3.579.2. 1285 1946 Unknown [id number] 2.16.840.1.215045.3.579.2. 1286 1946 Unknown [id number] 2.16.840.1.945993.3.579.2. 1285 1946 Unknown [id number] 2.16.840.1.215484.3.579.2. 1286 1946 Unknown [id number] 2.16.840.1.087227.3.579.2. 1285 1946 Unknown [id number] 2.16.840.1.386785.3.579.2. 128 1946 Unknown [id number] 2.16.840.1.664759.3.579.2. 1285 1946 Unknown [id number] 2.16840.1.342251.3.579.2. 1285 1946 Unknown [id number] 2.840.1.857337.3.579.2. 1285 1946 Unknown [id number] 2.16840.1.660838.3.579.2. 1285 1946 Unknown [id number] 2.16840.1.805169.3.579.2. 1285 1946 Unknown [id number] 2.16840.1.378888.3.579.2. 1285 1946 Unknown [id number] 2.16840.1.561195.3.579.2. 1285 1946 Unknown [id number] 2.16840.1.742750.3.579.2. 128 1946 Unknown [id number] 2.16840.1.222091.3.579.2. 1285 1946 Unknown [id number] 2.16840.1.942150.3.579.2. 1285 1946 Unknown [id number] 2.16840.1.551383.3.579.2. 1286 1946 Unknown [id number] 2.16.840.1.206205.3.579.2. 1286 1946 Unknown [id number] 2.16.840.1.566720.3.579.2. 128 1946 Unknown [id number] 2.16.840.1.972565.3.579.2. 128 1946 Unknown [id number] 2.16.840.1.304613.3.579.2. 128 1946 Unknown [id number] 2.16.840.1.290792.3.579.2. 1285 1946 Unknown [id number] 2.16.840.1.373523.3.579.2. 1285 1946 Unknown [id number] 2.16840.1.755346.3.579.2. 1285 1946 Unknown [id number] 2.16840.1.574949.3.579.2. 1285 1946 Unknown [id number] 2.16840.1.322898.3.579.2. 1285 1946 Unknown [id number] 2.16840.1.919203.3.579.2. 1285 1946 Unknown [id number] 2.16840.1.861751.3.579.2. 1285 1946 Unknown [id number] 2.16.840.1.825100.3.579.2. 128 1946 Unknown [id number] 2.16.840.1.477391.3.579.2. 1285 1946 Unknown [id number] 2.16.840.1.392823.3.579.2. 1285 1946 Unknown [id number] 2.16840.1.053412.3.579.2. 1285 1946 Unknown [id number] 2.16.840.1.784811.3.579.2. 1285 1946 Unknown [id number] 2.16.840.1.836066.3.579.2. 1285 1946 Unknown [id number] 2.16.840.1.504907.3.579.2. 1285 1946 Unknown [id number] 2.16.840.1.625962.3.579.2. 1285 1946 Unknown [id number] 2.16.840.1.257075.3.579.2. 1285 1946 Unknown [id number] 2.16.840.1.717775.3.579.2. 1285 1946 Unknown [id number] 2.16840.1.635566.3.579.2. 1285 1946 Unknown [id number] 2.16.840.1.726616.3.579.2. 1285 1946 Unknown [id number] 2.16840.1.870130.3.579.2. 1285 1946 Unknown [id number] 2.16.840.1.928695.3.579.2. 1285 1946 Unknown [id number] 2.16840.1.869667.3.579.2. 1285 1946 Unknown [id number] 2.16.840.1.292946.3.579.2. 1285 1946 Unknown [id number] 2.16840.1.531742.3.579.2. 1285 1946 Unknown [id number] 2.16.840.1.752231.3.579.2. 1285 1946 Unknown [id number] 2.16840.1.658904.3.579.2. 1258 1946 Unknown [id number] 2.16.840.1.842840.3.579.2. 9 1946 Unknown [id number] 2.16.840.1.231230.3.579.2. 9 1946 Unknown [id number] 2.16.840.1.397983.3.579.2. 1258 1946 Unknown [id number] 2.16840.1.006438.3.579.2. 1285 1946 Unknown [id number] 2.16.840.1.977157.3.579.2. 1285 1946 Unknown [id number] 2.840.1.327194.3.579.2. 1285 1946 Unknown [id number] 2.840.1.142079.3.579.2. 1285 1946 Unknown [id number] 2.16840.1.533805.3.579.2. 1285 1946 Unknown [id number] 2.840.1.352560.3.579.2. 1285 1946 Unknown [id number] 2.840.1.383523.3.579.2. 1285 1946 Unknown [id number] 2.840.1.708588.3.579.2. 1285 1946 Unknown [id number] 2.16840.1.838456.3.579.2. 1285 1946 Unknown [id number] 2.16840.1.542457.3.579.2. 1285 1946 Unknown [id number] 2.16840.1.754306.3.579.2. 1285 1946 Unknown [id number] 2.16840.1.816739.3.579.2. 1285 1946 Unknown [id number] 2.16.840.1.155699.3.579.2. 1286 1946 Unknown [id number] 2.16.840.1.861750.3.579.2. 1286 Unknown [id number] Unknown [id number] 2.16.840.1.465244.3.579.2. 531 Social History Date Type Detail Facility Start: 10-15-2014 End: 10-05-2022 Tobacco smoking status NHIS Never smoker [facility] Start: 10-15-2014 End: 08-01-2025 Alcohol intake [facility] Start: 10-02-2014 Alcohol Comment occaisional [employer] [facility] Phone: Start: 1945 Sex Assigned At Not on file [facility] Start: 11-14-2022 End: 12-07-2022 Exposure to SARS-CoV-2 (event) Not sure [facility] [employer] Start: 10-05-2022 End: 06-06-2025 Tobacco use and exposure Smokeless tobacco non-user [facility] Start: 10-28-2024 End: 11-09-2024 History of Social function [facility] Start: 10-28-2024 End: 11-09-2024 [facility] [employer] [facility] Has the [email or web address], or [employer] threatened to shut off services in your home in past 12Mo No [facility] [employer] System Do you belong to any clubs or organizations such as denominational groups, unions, fraternal or athletic groups, or school groups? Yes [facility] Are you now , , , , never or living with a partner? Never [facility] How often to you hav e a drink containing alcohol? Never [facility] How many standard drinks containing alcohol do you have on a typical day? Patient does not drink [facility] How hard is it for y ou to pay for the very basics like food, housing, medical care, and heating Somewhat hard [facility] Do you feel stress - tense, restless, nervous, or anxious, or unable to sleep at night because your mind is troubled all the time - these days [OSQ] To some extent [facility] Start: 06-20-2015 Sex Female (finding) [facility] Start: 03-21-2020 Gender identity Identifies as female gender (finding) [facility] Start: 10-05-2022 Sexual orientation Heterosexual (fin ding) [facility] Do you feel stress - tense, restless, nervous, or anxious, or unable to sleep at night because your mind is troubled all the time - these days [OSQ] Not at all [facility] Start: 01-18-2025 Tobacco use and exposure Non-Smoking Tobacco Use Details [facility] Start: 1945 Sex Assigned At Female [facility] Tobacco smoking stat NHIS Unknown if ever smoked [facility] Start: 06-06-2025 End: 07-10-2025 Alcoholic beverage intake Ex-drinker (finding) [facility] NEGATED: Highlighted rowStart: 01-18-2025 Tobacco smoking status NHIS Unknown if ever smoked [facility] NEGATED: Highlighted rowStart: 01-18-2025 Alcohol intake Alcohol Use Details [facility] Medical Equipment Procedure Code Equipment Code Equipment Original Text Equipment Identifier Dates Valve Aor Evolut Fx 26mm - [id number] - [id number] Start: 08-17-2023 [id number], [id number], [id number] Start: 10-11-2020 End: 03-02-2024 Cement Bn Trauma saritha V+ Polymethylmethacrylate Gls Inj Pwdr - [id number] Start: 07-13-2025 Nail Im 400mm 10 mm 125d Cnn Tfn-Adv Lat Rlf Cut Ti Niobium - [id number] Start: 07-13-2025 Blade Im Nl Au 7 5mm 10.35mm Tfn-Adv Hlcl Fem Prox Ti Niobium - [id number] Start: 07-13-2025 Screw Bn 44mm 5m m Lck X25 Strl Lf Im Nl - [id number] Start: 07-13-2025 Screw Lck Lght G rn 40mm 5mm X25 Fem Ti Niobium Al Strl - [id number] Start: 07-13-2025 Cement Bn Trauma saritha V+ Polymethylmethacrylate Gls Inj Pwdr - [id number] FDA Start: 08-06-2025 Nail Im 400mm 10 mm 125d Cnn Tfn-Adv Lat Rlf Cut Ti Niobium - [id number] Start: 08-06-2025 Blade Im Nl Au 8 0mm 10.35mm Tfn-Adv Hlcl Fem Prox Ti Niobium - [id number] Start: 08-06-2025 Screw Lck Lght G rn 40mm 5mm X25 Fem Ti Niobium Al Strl - [id number] FDA Start: 08-06-2025 Screw Bn 44mm 5m m Lck X25 Strl Lf Im Nl - [id number], [id number] FDA Start: 08-06-2025 Goals Date Patient Goal Desired Activity /State Personal health goal Comment on above: Formatting of this n ote might be different from the original. Evaluation of progress towards goal: Patient and daughter are agreeable to [facility] for RN and PT providing patient has [...] antibiotics at home or copay costs for [facility] care. Patient and daughter will need to [...] Patient would only like to discharge to [facility], if not patient would like to return home. Personal health goal Functional Status Date Assessment Result Facility 07-12-2025 Total score [AUDIT-C] 0 07/12/20 25 2:23 PM EDT Ursula Schuster RN [facility] Mental Status Date Assessment Result Facility [facility] Clinical Notes 03-20-2021 to 08-03-2025 Sacha Rosales DO - 08/03/2025 11:59 PM EDTTelephone Encounter - Kathie Ybarra RN - 08/02/2025 3:26 PM EDTTelephone Encounter - Kathie Ybarra, RN - 08/02/2025 3:26 PM EDTAppointments Note Date & Type Note Facility 08-03-2025 History of Present illness Narrative Patient Name: Cuca Dee Date of : 1945 Date of Service: 08/03/2025 Facility: [facility] Type of Visit: Skilled Visit Subjective Cuca Dee is a 80 y.o. female seen today at [facility] for skilled visit. Cuca is participating in therapy. She is going to have surgery on her left hip on Wednesday. Pain is adequately controlled. She denies any chest pain or shortness for breath. She has a history of coronary artery disease with stents and a valve replacement. Her appetite is okay. Allergies: Patient has no known allergies. Code Status: FULL CODE BP (!) 126/93 Pulse 80 Temp 36.8 C (98.2 F) Resp 19 Wt 77 kg (169 lb 12.8 oz) LMP (LMP Unknown) SpO2 93% BMI 28.26 kg/m Physical Exam Vitals reviewed. Constitutional: General: She is awake. She is not in acute distress. Appearance: She is not ill-appearing. Comments: In bed in room HENT: Head: Normocephalic. Eyes: Extraocular Movements: Extraocular movements intact. Conjunctiva/sclera: Conjunctivae normal. Cardiovascular: Rate and Rhythm: Normal rate and regular rhythm. Heart sounds: Murmur heard. Pulmonary: Effort: Pulmonary effort is normal. No respiratory distress. Breath sounds: Normal breath sounds. No wheezing, rhonchi or rales. Abdominal: General: Bowel sounds are normal. There is no distension. Palpations: Abdomen is soft. Tenderness: There is no abdominal tenderness. There is no guarding. Hernia: No hernia is present. Musculoskeletal: Right hip: Tenderness and bony tenderness present. Decreased range of motion. Right lower leg: No edema. Left lower leg: No edema. Neurological: Mental Status: She is alert. Psychiatric: Attention and Perception: Attention normal. Mood and Affect: Mood and affect normal. Speech: Speech normal. Behavior: Behavior normal. Behavior is cooperative. Thought Content: Thought content normal. Judgment: Judgment normal. Assessment/Plan Summary / Assessment / Plan 1. Lesion of left femur 2. Coronary artery disease involving [place] coronary artery of [place] heart without angina pectoris 3. Chronic diastolic congestive heart failure ([facility]) 4. S/p TAVR (transcatheter aortic valve replacement), bioprosthetic 5. Hypertensive heart and chronic kidney disease with heart failure and stage 1 through stage 4 chronic kidney disease, or unspecified chronic kidney disease ([facility]) She is going to have surgery on a left hip lesion. She does not have any symptoms of coronary artery disease although she is unable to do 4 METS of activity. She will return here and do therapy following surgery. Continue other orders as directed. ELECTRONICALLY SIGNED BY: Sacha Rosales DO documented in this encounter [facility] 08-02-2025 Miscellaneous Notes Called facility and spoke with patient's nurse. We had some schedule shuffling and need to move patient's surgery up to Wednesday morning 7:30 surgery, 5:30am arrival to hospital. She will work to get transportation arranged. Then called patient's daughter IleanaAlison RITTER with these details and encouraged her to call back before 3:45 today or after 8am tomorrow if she had questions/concerns. documented in this encounter [facility] 08-02-2025 Telephone encounter Note Called facility and spoke with patient's nurse. We had some schedule shuffling and need to move patient's surgery up to Wednesday morning 7:30 surgery, 5:30am arrival to hospital. She will work to get transportation arranged. Then called patient's daughter IleanaAlison RITTER with these details and encouraged her to call back before 3:45 today or after 8am tomorrow if she had questions/concerns. [facility] 08-01-2025 History of Present illness Narrative Images from the original note were not included. INTERVAL Hx: Cuca Dee is a 80 y.o. 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 She is 2.5 weeks status post IM nail right nondisplaced pathologic fracture of the right hip performed on 07/13/2025. Postoperatively she was permitted to weightbear as tolerated to the right lower extremity. She presents to the office for clinical check. She is accompanied by her daughter today. [place] [facility] She still experiences mild pain about the right lower extremity for which she is ordered Tylenol and oxycodone as needed per facility orders. She is undergoing physical therapy at the facility. She reports what is more bothersome to her is development of left femur pain over the last approximately 2 weeks. Notes pain to the anterior and lateral aspect of the proximal femur typically experience with weight-bearing activities/working in physical therapy. Additionally describes that her left lower extremity symptomology is consistent with her prior right lower extremity symptoms she was experiencing prior to right femur pathologic fracture. It is notable that she underwent x-rays of the left femur prior to discharge from the hospital notably 5 areas of osteolysis of the proximal femur compatible with metastatic lesions with no current pathological fracture. She is not currently on DVT prophylaxis. PMHx, PSHx, FamHx: were reviewed during this visit. Social History Occupational History Not on file Tobacco Use Smoking status: Never Smokeless tobacco: Never Vaping Use Vaping status: Never Used Substance and Sexual Activity Alcohol use: No Drug use: No Sexual activity: Defer MEDS & ALLERGIES: were reviewed at during this visit. ROS: Negative for Fever/Chills, Numbness/Tingling, Skin changes. PHYSICAL EXAM: Vitals: LMP (LMP Unknown) General: Well-nourished, Well-developed and Age appropriate LOC: awake and alert Psych: Pleasant and Cooperative Station: Seated in wheelchair Musculoskeletal: RIGHT LOWER EXTREMITY: Inspection: No visible deformity of LE. Surgical incisions with tiny in place, well approximated, no surrounding erythema or drainage. Tiny removed at today's office visit, Steri-Strips placed. Motor: intact extensor hallucis longus, tibialis anterior, gastrocsoleus complex function Sensory: intact to light touch: Deep Peroneal, Superficial Peroneal, Saphenous, Sural nerves CV/Vasc: Foot warm well perfused LEFT LOWER EXTREMITY: Inspection: Skin: intact, no open wounds or abrasions. no erythema. no ecchymosis and clean, dry No visible deformity of LE. 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 Discussed given prior radiographic imaging of the left femur indicative of multiple metastatic lesions with the patient now developing pain with difficulty weight-bearing to the left lower extremity, we would recommend moving forward with operative stabilization with intramedullary nail to the left lower extremity due to concern for impending pathologic femur fracture. This is discussed with the patient as well as her daughter at today's visit. Risks, benefits, and alternatives to surgery were discussed with the patient today. Patient amenable to proceeding with surgical intervention. Consent forms were obtained in the office today. Orders has been provided to facility informing them of plans for surgery with Dr. Marinelli to take place on 08/06/2025. Preoperative labs to be obtained. Continue WBAT RLE with assistive devices as needed Okay to shower and allow water to run over Steri-Strips/incisions to right lower extremity. No submerging of surgical incision until completely healed. May continue PT at the facility to right lower extremity Pain control - currently using Tylenol and oxycodone for pain control. Transition off of narcotic pain control as tolerated. Ice/elevation DVT prophylaxis: She isn't currently on DVT prophylaxis. Provided facility with a orders to initiate Lovenox 40 mg subQ daily to be discontinued after a.m. dose on 08/05/25 in preparation of OR 08/06/2025. Patient is on ergocalciferol at the facility weekly. Provided facility with a orders to initiate calcium citrate 400 mg three times daily and vitamin D3 2000 International Units daily Ice/elevation as needed Patient to follow up postoperatively ROBERT LOPEZ PA-C ATTENDING STATEMENT: IRa MD, personally performed the face to face evaluation on this patient. I discussed with the patient and confirmed the accuracy and completeness of the aforementioned history prepared by the [facility] practice provider, and I personally performed the clinical examination of the patient. I discussed the treatment plan with the patient. She returns today doing quite well after recovery from her right hip femoral nail. This was placed for development of a pathologic fracture of her right proximal femur due to extensive metastatic breast cancer lesions in the right proximal femur. It was noted during her hospitalization that the imaging also demonstrated lesions within the left femur but at that time she had been not been having any significant pain. Since her discharge and her progression with therapy however she has begun to develop some left-sided difficulty with movement and weight-bearing. Given the size in the location of the lytic lesions on the left femur in the subtrochanteric region where the radiographs do demonstrate some cortical erosions I think she would benefit from prophylactic stabilization of the left femur. Will make her nonweightbearing implant to proceed with her surgery next week. Would attempt to minimize her weight-bearing so as to avoid any traumatic or even atraumatic fracture of her left lower extremity. Will obtain preoperative labs in an effort to ensure that she is appropriate for surgery on Wednesday. Will arrange for transportation with the facility. Anticipate discharge back to the facility the same day postoperatively provided there are no intraoperative or perioperative complications. All questions were addressed and answered with the patient. Consent was obtained.. RA MARINELLI MD MEDICAL DECISION-MAKING Based on the following criteria: Ortho MDM Diagnosis Complexity -: [5] HIGH: 1+ chronic illness - severe progression, side effects of tx Ortho Data Level: [3] Ortho Data Limited Category 1 (need 2): Review of results and Order unique tests Ortho Tx/Test Risk Level (highest): [5] Ortho High Risk Options: Major Surgery (elective) (90d Global): WITH RISKS LEVEL OF MDM -: [5] HIGH level [facility] History of Present illness Narrative Images from the original note were not included. Delisa Perkins, SMUTTER-ARCHITECT [employer] [facility] Sched[facility]; [facility] Cc: Casimiro Muñoz MD Patient admitted with right pathological hip fx s/p IM nailing yesterday (path pending). She undergoes treatment for metastatic breast cancer with Dr. Muñoz, on Letrozole with multiple lapses in treatment and follow up for various reasons including hospitalizations and insurance. PET ordered in January 2025 not completed. Requested she complete PET. Please arrange for follow up. Thank you. 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 History of present illness: Follow-up for normal pressure hydrocephalus. She is currently in a SNF[facility] PT and OT. Denies headaches, numbness, tingling, vision change. Reports difficulty with memory. Reports ongoing urinary incontinence. Denies bowel incontinence. She does note she has recently hospitalized for a pathologic right femur fracture, which did require surgery. She notes that she may also need surgery for a pathologic left femur fracture. These are related to her metastatic breast cancer. Review of systems: As in HPI. Past Medical History: Diagnosis Date Aortic stenosis Asthma Atrial fibrillation (CMS/HCC) Cancer (CMS/HCC) 02/2023 right breast, metastatic Cataract CKD (chronic kidney disease) Coronary artery disease Depression Diabetes mellitus (CMS/HCC) Dyslipidemia Femur fracture, right (CMS/HCC) 04/2025 GERD (gastroesophageal reflux disease) Heart failure (CMS/HCC) Hypertension Ischemic stroke (CMS/HCC) 02/2024 seen at [facility] (normal pressure hydrocephalus) (CMS/HCC) PVD (peripheral vascular disease) Sleep apnea Past Surgical History: Procedure Laterality Date AORTIC VALVE REPLACEMENT TAVR BREAST BIOPSY Right 03/01/2023 CARDIAC VALVE REPLACEMENT 2022 CATARACT EXTRACTION SECTION, CLASSIC CORONARY ANGIOPLASTY WITH STENT PLACEMENT 2022 HUMERUS IM RONALDO REMOVAL Right 06/2025 HYSTEROSCOPY IR MISC SHUNTOGRAM 06/27/2020 IR MISC [...] cefuroxime cholecalciferol (vitamin D3) clopidogrel Dexcom G6 [facility]aternity [facility] Dexcom G6 Transmitter device Dexcom G7 Sensor device doxycycline ferrous sulfate FreeStyle Kartik 14 Day [place] mis FreeStyle Kartik 14 Day Sensor kit furosemide gabapentin hydroCHLOROthiazide insulin aspart insulin lispro lancets [facility] Lantus Solostar U-100 Insulin insulin pen letrozole Levemir FlexPen insulin pen lisinopril magnesium oxide melatonin capsule metoprolol tartrate mirtazapine miscellaneous medical supply [facility] mupirocin nystatin ONETOUCH ULTRA BLUE TEST STRIP [facility] OneTouch Ultra Test strip oxyBUTYnin pantoprazole pen [...] sugar diagnostic (ONETOUCH ULTRA BLUE TEST STRIP [facility]), OneTouch Ultra Blue Test Strip, [...] the morning., Disp: , Rfl: Dexcom G6 [employer]aternity [employer] Cook misc, See administration instructions., Disp: , Rfl: Dexcom G6 Transmitter device, CHANGE EVRY 90 DAYS., Disp: , Rfl: Dexcom G7 Sensor device, USE AND CHANGE SENSOR EVERY 10 DAYS, Disp: , Rfl: doxycycline (Vibra-Tabs) 100 mg tablet, Take 100 mg by mouth two times daily. Take with a full glass of water and do not lie down for at least 30 minutes after., Disp: , Rfl: ferrous sulfate 325 (65 Fe) MG EC tablet, Take 325 mg by mouth., Disp: , Rfl: FreeStyle Kartik reader (FreeStyle Kartik 14 Day [place]) misc, FreeStyle Kartik 14 Day [place], Disp: , Rfl: FreeStyle Kartik sensor system (FreeStyle Kartik 14 Day Sensor) kit, FreeStyle Kartik 14 Day Sensor kit, Disp: , Rfl (more content not included)... [facility] 07-31-2025 History of Present illness Narrative Images from the original note were not included. Delisa Perkins, SMUTTER-ARCHITECT [employer] [facility] Onc Scheduling; [facility] Cc: Casimiro Muñoz MD Patient admitted with right pathological hip fx s/p IM nailing yesterday (path pending). She undergoes treatment for metastatic breast cancer with Dr. Muñoz, on Letrozole with multiple lapses in treatment and follow up for various reasons including hospitalizations and insurance. PET ordered in January 2025 not completed. Requested she complete PET. Please arrange for follow up. Thank you. Delisa Jaycob Spoke with Daughter, she will coordinate with [facility] to schedule pet ct then will schedule follow up with Dr. Muñoz. 07/31/25 AR documented in this encounter [employer] 07-27-2025 Miscellaneous Notes Patient was discharged from the hospital to a SNF, [facility]. Called SNF on 07/26/25 and left a for a return call to get updates but none provided at this time. [facility] 07-27-2025 Telephone encounter Note Patient was discharged from the hospital to a SNF, [facility]. Called SNF on 07/26/25 and left a for a return call to get updates but none provided at this time. [facility] [place] [facility] Work Phone: 07-25-2025 Miscellaneous Notes Cloth Examiner Machine called patient and spoke with daughter and she states per her mother the patient will call when ready to schedule appointment. Office number provided documented in this encounter [facility] 07-25-2025 Telephone encounter Note Cloth Examiner Machine called patient and spoke with daughter and she states per her mother the patient will call when ready to schedule appointment. Office number provided [facility] 07-24-2025 History of Present illness Narrative Patient Name: Cuca Dee Date of : 1945 Date of Service: 07/24/2025 Facility: [facility] Type of Visit: Skilled Visit Subjective Cuca Dee is a 80 y.o. female seen today at [facility] facility for skilled visit. Cuca is in [...] Sacha Rosales DO documented in this encounter [employer] 07-20-2025 History of Present illness Narrative Patient Name: Cuca Dee Date of : 1945 Date of Service: 07/20/2025 Facility: [facility] Type of Visit: Skilled Visit Subjective Cuca Dee is a 80 y.o. female seen today at [facility] facility for skilled visit. Cuca presents back to [facility] from [facility] where she was admitted for a pathologic [...] Exam Vitals reviewed. Exam conducted with a press department manager present (Ludwin Joy MS3). Constitutional: General: She [...] hyperlipidemia associated with type 2 diabetes mellitus ([facility]) 4. Hypertensive heart and chronic kidney disease with heart failure and stage 1 through stage 4 chronic kidney disease, or unspecified chronic kidney disease ([facility]) She only rates her pain a 5 on scale 1-10 but had recent surgery for pathological fracture. Will try oxycodone 5mg Q6hrs prn. It is a condition that will require short-term opioids to control pain. Patient was in agreement. Continue therapy. F/U with ortho as directed. Continue other orders as before. ELECTRONICALLY SIGNED BY: Sacha Rosales DO documented in this encounter [facility] 07-10-2025 History of Present illness Narrative Patient Name: Cuca Dee Date of : 1945 Date of Service: 07/10/2025 Facility: [facility] Type of Visit: Skilled Visit Subjective Cuca Dee is a 80 y.o. female [facility]. She is participating in [...] Exam Vitals reviewed. Exam conducted with a press department manager present (Ludwin Joy MS3). Constitutional: General: She [...] kidney disease, or unspecified chronic kidney disease ([facility]) 2. Chronic obstructive pulmonary disease, unspecified COPD type ([facility]) 3. Lumbar back pain with radiculopathy affecting left lower extremity 4. Spinal stenosis of lumbar region with neurogenic claudication 5. Closed fracture of right hip, sequela 6. Rhinitis, unspecified type Continue therapy to reach maximum improvement. Will add loratadine 10mg daily. Continue other orders as before. ELECTRONICALLY SIGNED BY: Sacha Rosales DO documented in this encounter [employer] 07-10-2025 History of Present illness Narrative Images [...] DOES NOT WAKE AT HS. RESIDENT AT [facility]. Physical Exam General Appearance: Patient appears uncomfortable [...] initial encounter ([facility]) S72.141A Assessment & Plan Right hip pain [...] yet since visit on 05/22/25 with [facility] neurosurgery to my knowledge with asking [...] requiring urgent evaluation. Visit was preformed using [employer]-ship pilot dispatcher speech recognition. documented in this encounter [facility] 07-06-2025 History of Present illness Narrative Patient Name: Cuca Dee Date of : 1945 Date of Service: 07/06/2025 Facility: [facility] Type of Visit: Admission H&P Subjective Cuca Dee is a 80 y.o. female seen today at [facility] facility for admission H&P. Cuca presents today from [facility] where she is admitted for intractable [...] Her appetite is good. She sees a music publisher and help desk agent for her heart failure and kidney failure issues. Past Medical History: Diagnosis Date Anemia Arthritis Asthma very mild, no inhaler use Cataract Dental disease Depression Diabetes mellitus [place] Diabetes mellitus type 2, controlled ([facility]) Encephalitis Foot fracture, left GERD (gastroesophageal reflux disease) Heart murmur HLD (hyperlipidemia) Hypertension Incontinence Injury of back Insulin dependent diabetes mellitus Kidney failure STAGE 4 Lumbar spondylolysis Murmur Obesity CHELSEA (obstructive sleep apnea) no machine Peptic ulceration Peripheral vascular disease Shortness of breath Stroke ([facility]) 02/27/2024 TIA (transient ischemic attack) Upper respiratory infection UTI (urinary tract infection) Visual impairment Wears dentures Past Surgical History: Procedure Laterality Date BREAST BIOPSY Right 03/01/2023 ULT BIOPSY CATARACT EXTRACTION SECTION SECTION 03/14/1974 EGD N/A 10/17/2019 Performed by Sarai Bell DO at [facility] H-PERCUTANEOUS CORONARY INTERVENTION HYSTEROSCOPY DILATION CURETTAGE MYOSURE N/A 01/29/2021 Performed by Jv Briones MD at [facility] INJECTION BLOCK EPIDURAL CAUDAL STEROID N/A 08/14/2022 Performed by Arnulfo Gonzalez MD at [facility] INJECTION BLOCK EPIDURAL CAUDAL STEROID N/A 06/06/2021 Performed by Arnulfo Gonzalez MD at [facility] INJECTION BLOCK EPIDURAL CAUDAL STEROID N/A 04/25/2021 Performed by Arnulfo Gonzalez MD at [facility] INJECTION CAUDAL EPIDURAL WITH CATHETER, STEROID N/A 05/03/2020 Performed by Arnulfo Gonzalez MD at [facility] INJECTION CAUDAL EPIDURAL WITH CATHETER, STEROID N/A 11/24/2019 Performed by Arnulfo Gonzalez MD at [facility] INJECTION CAUDAL EPIDURAL WITH CATHETER, STEROID N/A 04/21/2019 Performed by Arnulfo Gonzalez MD at [facility] INJECTION MEDIAL BRANCH NERVE BLOCK Bilateral L 4/5, 5/1 Bilateral 08/18/2019 Performed by Arnulfo Gonzalez MD at [facility] INJECTION MEDIAL BRANCH NERVE BLOCK Bilateral L 4/5, 5/1 Bilateral 06/23/2019 Performed by Arnulfo Gonzalez MD at [facility] INJECTION STEROID EPI 1 WITH SEDATION Right L 4, 5 NR Right 03/17/2019 Performed by Arnuflo Gonzalez MD at [facility] INJECTION STEROID EPI 1 WITH SEDATION: right L45 nroot Right 08/15/2018 Performed by Arnulfo Gonzalez MD at [facility] LEFT L4, AND 5 NERVE ROOT INJECTION 2 OF 2 Left 07/22/2018 Performed by Arnulfo Gonzalez MD at [facility] LEFT L4, AND L5 NERVE ROOT 1 OF 2 Left 07/04/2018 Performed by Arnulfo Gonzalez MD at [facility] SHUNT INSERTION TONSILLECTOMY AGE 4 Transcutaneous aortic valve replacement/Transfemoral/Kwan N/A 08/17/2023 Performed by Chava Norris MD at [facility] Valvuloplasty aortic N/A 06/03/2023 Performed by Chava Norris MD at [facility] Family History Problem [...] Plan 1. Chronic diastolic congestive heart failure ([facility]) 2. Hypertensive heart and chronic kidney disease with heart failure and stage 1 through stage 4 chronic kidney disease, or unspecified chronic kidney disease ([facility]) 3. Intractable nausea and vomiting 4. Urinary tract infection without hematuria, site unspecified Admit to [facility]. Therapy evaluation with OT and PT. Continue medications from the hospital. Full code. Good rehab potential. Plan to go home when able to take care of self and do ADLs. ELECTRONICALLY SIGNED BY: Sacha Rosales DO documented in this encounter [facility] 07-05-2025 Nurse Note Patient discharged to snf with [facility] transport and all belongings and medications. Patient denies any complaints of chest pain/tightness, dizziness, nausea, vomiting. Daughter notified of departure. Attempted to call snf to notifiy of patient's departure-no answer. Crf faxed and report called. [facility] 07-05-2025 Nurse Note Patient discharged to snf with [facility] transport and all belongings and medications. Patient denies any complaints of chest pain/tightness, dizziness, nausea, vomiting. Daughter notified of departure. Attempted to call snf to notifiy of patient's departure-no answer. Crf faxed and report called. Patient noted to have pulled out IV and telemetry. Cloth Examiner Machine completed adl's. Patient refused to replace another IV and/ lunch. Jazmine Do CNP advised and see new order. documented in this encounter [facility] 07-05[facility]25 Plan of care note Problem: Pain Goal: Patient goal is pain score less than 4, able to rest, and participant in treatment plan as appropriate Description: INTERVENTIONS: 1. Encourage patient or legal customer service representative to report early pain and ask [...] per policy 9. Teach patient or legal customer service representative interventions for comforting Outcome: Completed Note: [...] at the bedside 7. Instruct patient/ patient customer service representative about use of safety devices 8. Include patient/ patient customer service representative in decisions related to safety Outcome: [...] hygiene technique. 7. Identify and instruct patient/patient customer service representative in use of appropriate isolation precautions for identified infection/symptoms. 8. Provide and discuss with patient/patient customer service representative on educational MDRO sheet. 9. Encourage and monitor nutritional status daily and consult compressor battery pellets if indicated. 10. Implement neutropenic guidelines as needed. Outcome: Completed Note: Evaluation of progress towards goal: Patient discharged to SNF Problem: Knowledge Deficit Goal: Patient/patient customer service representative demonstrates understanding of disease process, treatment [...] Collaborate with ancillary departments 14. Include patient/patient customer service representative in decisions related to anxiety Outcome: [...] care 6. Collaborate with pastoral/spiritual care, social service agency director, mental health counselor as needed. 7. Instruct patient on diversional activities such as physical activity, distraction, and deep breathing exercises to assist with coping 8. Involve patient's customer service representative in care Outcome: Completed Note: Evaluation [...] discharge planning process 5. Communicate referral to tobacco prevention health educator as appropriate 6. Communicate referral to compressor battery pellets as appropriate 7. Collaborate with case management/social service agency director for discharge needs Outcome: Completed Note: Evaluation [...] supplement as ordered 13. Collaborate with clinical compressor battery pellets 14. Include patient/ patient's customer service representative in decisions related to nutrition Outcome: [...] Score of =/> 25 or indicated by [facility] Assessment Goal: Patient should be free from fall Description: Interventions: 1. Story to environment 2. Hourly rounds addressing the [...] non-skid footwear 11. Teach patient and patient customer service representative to maintain environment for safety and [...] (cane, walker) within reach 19. Request patient customer service representative bring adaptive equipment/mobility aids from home or obtain and provide as needed 20. Consult pharmacy regarding effects of med's affecting mobility, cognition, and alternatives 21. Obtain physician order for PT if risk factors associated with mobility are present 22. Obtain physician order for OT as appropriate 23. Utilize diversional activities 24. Educate patient and patient customer service representative how to maintain a safe environment during visitation times (notify nurse prior to leaving bedside) 25. Consider appropriateness of medical or non-medical sonographer 26. Set up voiding schedule as appropriate [...] Handoff to next level of care provider (healthcare science specialist, PCP, home care). 5. Complete follow up [...] progress towards goal: [facility] 07-05-2025 Miscellaneous Notes Problem: Pain Goal: Patient goal is pain score less than 4, able to rest, and participant in treatment plan as appropriate Description: INTERVENTIONS: 1. Encourage patient or legal customer service representative to report early pain and ask [...] per policy 9. Teach patient or legal customer service representative interventions for comforting Outcome: Completed Note: [...] at the bedside 7. Instruct patient/ patient customer service representative about use of safety devices 8. Include patient/ patient customer service representative in decisions related to safety Outcome: [...] hygiene technique. 7. Identify and instruct patient/patient customer service representative in use of appropriate isolation precautions for identified infection/symptoms. 8. Provide and discuss with patient/patient customer service representative on educational MDRO sheet. 9. Encourage and monitor nutritional status daily and consult compressor battery pellets if indicated. 10. Implement neutropenic guidelines as needed. Outcome: Completed Note: Evaluation of progress towards goal: Patient discharged to SNF Problem: Knowledge Deficit Goal: Patient/patient customer service representative demonstrates understanding of disease process, treatment [...] Collaborate with ancillary departments 14. Include patient/patient customer service representative in decisions related to anxiety Outcome: [...] care 6. Collaborate with pastoral/spiritual care, social service agency director, mental health counselor as needed. 7. Instruct patient on diversional activities such as physical activity, distraction, and deep breathing exercises to assist with coping 8. Involve patient's customer service representative in care Outcome: Completed Note: Evaluation [...] discharge planning process 5. Communicate referral to tobacco prevention health educator as appropriate 6. Communicate referral to compressor battery pellets as appropriate 7. Collaborate with case management/social service agency director for discharge needs Outcome: Completed Note: Evaluation [...] supplement as ordered 13. Collaborate with clinical compressor battery pellets 14. Include patient/ patient's customer service representative in decisions related to nutrition Outcome: [...] Score of =/> 25 or indicated by [facility] Assessment Goal: Patient should be free from fall Description: Interventions: 1. Story to environment 2. Hourly rounds addressing the [...] non-skid footwear 11. Teach patient and patient customer service representative to maintain environment for safety and [...] (cane, walker) within reach 19. Request patient customer service representative bring adaptive equipment/mobility aids from home or obtain and provide as needed 20. Consult pharmacy regarding effects of med's affecting mobility, cognition, and alternatives 21. Obtain physician order for PT if risk factors associated with mobility are present 22. Obtain physician order for OT as appropriate 23. Utilize diversional activities 24. Educate patient and patient customer service representative how to maintain a safe environment during visitation times (notify nurse prior to leaving bedside) 25. Consider appropriateness of medical or non-medical sonographer 26. Set up voiding schedule as appropriate [...] Handoff to next level of care provider (healthcare science specialist, PCP, home care). 5. Complete follow up [...] transport with [facility] confirmed via PTN to [facility] [place] 8 at 1800 07/05/25 1028 Services Requested Patient expects to be discharged to: SNF Discharge Disposition [facility] [address] [place] [address] extension [phone] Fax SNF Accepted? Yes Transportation Arranged Ambulance Patient choice offered Yes List Provided Yes [facility] List Provided Nursing Home Facility DC Planning Complete Discharge Milestones Yes DISCHARGE PLANNING NOTE Discharge plan: Discharge orders noted. Transportation arranged for 2pm moss picker. [facility] updated on transport time. CRF and 7000 sent via [employer]. - Bethany Lucero RN 07/05/25 10:29 AM Problem: Pain Goal: Patient goal is pain score less than 4, able to rest, and participant in treatment plan as appropriate Description: INTERVENTIONS: 1. Encourage patient or legal customer service representative to report early pain and ask [...] per policy 9. Teach patient or legal customer service representative interventions for comforting Outcome: Progressing Note: [...] at the bedside 7. Instruct patient/ patient customer service representative about use of safety devices 8. Include patient/ patient customer service representative in decisions related to safety Outcome: [...] hygiene technique. 7. Identify and instruct patient/patient customer service representative in use of appropriate isolation precautions for identified infection/symptoms. 8. Provide and discuss with patient/patient customer service representative on educational MDRO sheet. 9. Encourage and monitor nutritional status daily and consult compressor battery pellets if indicated. 10. Implement neutropenic guidelines as needed. Outcome: Progressing Note: Evaluation of progress towards goal: Patient VS WNL, remains afebrile for shift. Continue to monitor. Problem: Knowledge Deficit Goal: Patient/patient customer service representative demonstrates understanding of disease process, treatment [...] Collaborate with ancillary departments 14. Include patient/patient customer service representative in decisions related to anxiety Outcome: [...] care 6. Collaborate with pastoral/spiritual care, social service agency director, mental health counselor as needed. 7. Instruct patient on diversional activities such as physical activity, distraction, and deep breathing exercises to assist with coping 8. Involve patient's customer service representative in care Outcome: Progressing Note: Evaluation [...] discharge planning process 5. Communicate referral to tobacco prevention health educator as appropriate 6. Communicate referral to compressor battery pellets as appropriate 7. Collaborate with case management/social service agency director for discharge needs Outcome: Progressing Note: Evaluation [...] supplement as ordered 13. Collaborate with clinical compressor battery pellets 14. Include patient/ patient's customer service representative in decisions related to nutrition Outcome: [...] Score of =/> 25 or indicated by [facility] Assessment Goal: Patient should be free from fall Description: Interventions: 1. Story to environment 2. Hourly rounds addressing the [...] non-skid footwear 11. Teach patient and patient customer service representative to maintain environment for safety and [...] (cane, walker) within reach 19. Request patient customer service representative bring adaptive equipment/mobility aids from home or obtain and provide as needed 20. Consult pharmacy regarding effects of med's affecting mobility, cognition, and alternatives 21. Obtain physician order for PT if risk factors associated with mobility are present 22. Obtain physician order for OT as appropriate 23. Utilize diversional activities 24. Educate patient and patient customer service representative how to maintain a safe environment during visitation times (notify nurse prior to leaving bedside) 25. Consider appropriateness of medical or non-medical sonographer 26. Set up voiding schedule as appropriate [...] Handoff to next level of care provider (healthcare science specialist, PCP, home care). 5. Complete follow up [...] Auth approved for admission to : [facility] P# ; F# Approval # [id number] Valid for Dates: 07/04/25 - 07/10/25 DISCHARGE PLANNING NOTE Prior auth submitted to: [employer] Via: [employer] On behalf of : [facility]# ; F# REF# [id number] Images from the original note were not [...] discharge planning Discharge Disposition SNF SNF Name [facility] ([facility]) [phone] Fax SNF Accepted? -- [referral sent] Does the patient need discharge transportation arranged? Yes Transportation Arranged Ambulance DC Planning Complete Discharge Milestones Yes Respiratory Indicator Does the patient currently have home respiratory equipment? No Will the patient need home respiratory equipment upon discharge? No, it is expected that patient will NOT discharge home with respiratory DME needs Discharge plan: [facility] vs Home with [facility] (resume services) [facility] to perform on-site this morning. CN called and left a voicemail for admissions to confirm if onsite was completed/if patient can be accepted. [facility] pending bed availability. Once accepting facility established, [...] stating she wants to talk to the [facility] rep. When they get here and then [...] Description: INTERVENTIONS: 1. Encourage patient or legal customer service representative to report early pain and ask [...] per policy 9. Teach patient or legal customer service representative interventions for comforting Note: Evaluation of [...] at the bedside 7. Instruct patient/ patient customer service representative about use of safety devices 8. Include patient/ patient customer service representative in decisions related to safety Note: Evaluation of progress towards goal: safety precautions in place. Problem: Pain Goal: Patient goal is pain score less than 4, able to rest, and participant in treatment plan as appropriate Description: INTERVENTIONS: 1. Encourage patient or legal customer service representative to report early pain and ask [...] per policy 9. Teach patient or legal customer service representative interventions for comforting Outcome: Progressing Note: [...] at the bedside 7. Instruct patient/ patient customer service representative about use of safety devices 8. Include patient/ patient customer service representative in decisions related to safety Outcome: [...] hygiene technique. 7. Identify and instruct patient/patient customer service representative in use of appropriate isolation precautions for identified infection/symptoms. 8. Provide and discuss with patient/patient customer service representative on educational MDRO sheet. 9. Encourage and monitor nutritional status daily and consult compressor battery pellets if indicated. 10. Implement neutropenic guidelines as needed. Outcome: Progressing Note: Evaluation of progress towards goal: Patient VS WNL, remains afebrile for shift. Continue to monitor. Problem: Knowledge Deficit Goal: Patient/patient customer service representative demonstrates understanding of disease process, treatment [...] Collaborate with ancillary departments 14. Include patient/patient customer service representative in decisions related to anxiety Outcome: [...] care 6. Collaborate with pastoral/spiritual care, social service agency director, mental health counselor as needed. 7. Instruct patient on diversional activities such as physical activity, distraction, and deep breathing exercises to assist with coping 8. Involve patient's customer service representative in care Outcome: Progressing Note: Evaluation [...] discharge planning process 5. Communicate referral to tobacco prevention health educator as appropriate 6. Communicate referral to compressor battery pellets as appropriate 7. Collaborate with case management/social service agency director for discharge needs Outcome: Progressing Note: Evaluation [...] supplement as ordered 13. Collaborate with clinical compressor battery pellets 14. Include patient/ patient's customer service representative in decisions related to nutrition Outcome: [...] Score of =/> 25 or indicated by [facility] Assessment Goal: Patient should be free from fall Description: Interventions: 1. Story to environment 2. Hourly rounds addressing the [...] non-skid footwear 11. Teach patient and patient customer service representative to maintain environment for safety and [...] (cane, walker) within reach 19. Request patient customer service representative bring adaptive equipment/mobility aids from home or obtain and provide as needed 20. Consult pharmacy regarding effects of med's affecting mobility, cognition, and alternatives 21. Obtain physician order for PT if risk factors associated with mobility are present 22. Obtain physician order for OT as appropriate 23. Utilize diversional activities 24. Educate patient and patient customer service representative how to maintain a safe environment during visitation times (notify nurse prior to leaving bedside) 25. Consider appropriateness of medical or non-medical sonographer 26. Set up voiding schedule as appropriate [...] Handoff to next level of care provider (healthcare science specialist, PCP, home care). 5. Complete follow up [...] status/safety, Fall risk, ADL status, Endurance level Memory Care Program Director Support for-: Mobility Deficits, ADL Deficits Therapy Plan Need for skilled Occupational Therapy to address deficits in ADL independence and functional mobility due to a status decline resulting from weakness. Past Medical History: Diagnosis Date Anemia Arthritis Asthma very mild, no inhaler use Cataract Dental disease Depression Diabetes mellitus [place] Diabetes mellitus type 2, controlled [place] Encephalitis Foot fracture, left GERD (gastroesophageal reflux disease) Heart murmur HLD (hyperlipidemia) Hypertension Incontinence Injury of back Insulin dependent diabetes mellitus Kidney failure STAGE 4 Lumbar spondylolysis Murmur Obesity CHELSEA (obstructive sleep apnea) no machine Peptic ulceration Peripheral vascular disease Shortness of breath Stroke [facility] 02/27/2024 TIA (transient ischemic attack) Upper respiratory infection UTI (urinary tract infection) Visual impairment Wears dentures Past Surgical History: Procedure Laterality Date BREAST BIOPSY Right 03/01/2023 ULT BIOPSY CATARACT EXTRACTION SECTION SECTION 03/14/1974 EGD N/A 10/17/2019 Performed by Sarai Bell DO at [facility] H-PERCUTANEOUS CORONARY INTERVENTION HYSTEROSCOPY DILATION CURETTAGE MYOSURE N/A 01/29/2021 Performed by Jv Briones MD at [facility] INJECTION BLOCK EPIDURAL CAUDAL STEROID N/A 08/14/2022 Performed by Arnulfo Gonzalez MD at [facility] INJECTION BLOCK EPIDURAL CAUDAL STEROID N/A 06/06/2021 Performed by Arnulfo Gonzalez MD at [facility] INJECTION BLOCK EPIDURAL CAUDAL STEROID N/A 04/25/2021 Performed by Arnulfo Gonzalez MD at [facility] INJECTION CAUDAL EPIDURAL WITH CATHETER, STEROID N/A 05/03/2020 Performed by Arnulfo Gonzalez MD at [facility] INJECTION CAUDAL EPIDURAL WITH CATHETER, STEROID N/A 11/24/2019 Performed by Arnulfo Gonzalez MD at [facility] INJECTION CAUDAL EPIDURAL WITH CATHETER, STEROID N/A 04/21/2019 Performed by Arnulfo Gonzalez MD at [facility] MEDIAL BRANCH NERVE BLOCK Bilateral L 4/5, 5/1 Bilateral 08/18/2019 Performed by Arnulfo Gonzalez MD at [facility] INJECTION MEDIAL BRANCH NERVE BLOCK Bilateral L 4/5, 5/1 Bilateral 06/23/2019 Performed by Arnulfo Gonzalez MD at [facility] INJECTION STEROID EPI 1 WITH SEDATION Right L 4, 5 NR Right 03/17/2019 Performed by Arnulfo Gonzalez MD at [facility] INJECTION STEROID EPI 1 WITH SEDATION: right L45 nroot Right 08/15/2018 Performed by Arnulfo Gonzalez MD at [facility] LEFT L4, AND 5 NERVE ROOT INJECTION 2 OF 2 Left 07/22/2018 Performed by Arnulfo Gonzalez MD at [facility] LEFT L4, AND L5 NERVE ROOT 1 OF 2 Left 07/04/2018 Performed by Arnulfo Gonzalez MD at [facility] SHUNT INSERTION TONSILLECTOMY AGE 4 Transcutaneous aortic valve replacement/Transfemoral/Kwan N/A 08/17/2023 Performed by Chava Norris MD at [facility] Valvuloplasty aortic N/A 06/03/2023 Performed by Chava Norris MD at [facility] 6 Clicks: Daily Activity [...] socks, gait belt Weight Bearing Status: FWB Telemetry/Turkey Farmer: Yes Oxygen Used: Room air Other: Fall [...] heart failure (CMS-HCC) Weakness Iron deficiency anemia Physical Therapy Evaluation [...] status/safety, Fall risk, ADL status, Endurance level Memory Care Program Director Support for-: Mobility Deficits, ADL Deficits Therapy Plan Need for skilled Physical Therapy to address deficits in functional mobility due to a status decline resulting from generalized weakness/decreased activity macario d/t intractable n/v. Past Medical History: Diagnosis Date Anemia Arthritis Asthma very mild, no inhaler use Cataract Dental disease Depression Diabetes mellitus [place] Diabetes mellitus type 2, controlled [place] Encephalitis Foot fracture, left GERD (gastroesophageal reflux disease) Heart murmur HLD (hyperlipidemia) Hypertension Incontinence Injury of back Insulin dependent diabetes mellitus Kidney failure STAGE 4 Lumbar spondylolysis Murmur Obesity CHELSEA (obstructive sleep apnea) no machine Peptic ulceration Peripheral vascular disease Shortness of breath Stroke [place] 02/27/2024 TIA (transient ischemic attack) Upper respiratory infection UTI (urinary tract infection) Visual impairment Wears dentures Past Surgical History: Procedure Laterality Date BREAST BIOPSY Right 03/01/2023 ULT BIOPSY CATARACT EXTRACTION SECTION SECTION 03/14/1974 EGD N/A 10/17/2019 Performed by Sarai Bell DO at [facility] H-PERCUTANEOUS CORONARY INTERVENTION HYSTEROSCOPY DILATION CURETTAGE MYOSURE N/A 01/29/2021 Performed by Jv Briones MD at [facility] INJECTION BLOCK EPIDURAL CAUDAL STEROID N/A 08/14/2022 Performed by Arnulfo Gonzalez MD at [facility] INJECTION BLOCK EPIDURAL CAUDAL STEROID N/A 06/06/2021 Performed by Arnulfo Gonzalez MD at [facility] INJECTION BLOCK EPIDURAL CAUDAL STEROID N/A 04/25/2021 Performed by Arnulfo Gonzalez MD at [facility] INJECTION CAUDAL EPIDURAL WITH CATHETER, STEROID N/A 05/03/2020 Performed by Arnulfo Gonzalez MD at [facility] INJECTION CAUDAL EPIDURAL WITH CATHETER, STEROID N/A 11/24/2019 Performed by Arnulfo Gonzalez MD at [facility] INJECTION CAUDAL EPIDURAL WITH CATHETER, STEROID N/A 04/21/2019 Performed by Arnulfo Gonazlez MD at [facility] INJECTION MEDIAL BRANCH NERVE BLOCK Bilateral L 4/5, 5/1 Bilateral 08/18/2019 Performed by Arnulfo Gonzalez MD at [facility] INJECTION MEDIAL BRANCH NERVE BLOCK Bilateral L 4/5, 5/1 Bilateral 06/23/2019 Performed by Arnulfo Gonzalez MD at [facility] INJECTION STEROID EPI 1 WITH SEDATION Right L 4, 5 NR Right 03/17/2019 Performed by Arnulfo Gonzalez MD at [facility] INJECTION STEROID EPI 1 WITH SEDATION: right L45 nroot Right 08/15/2018 Performed by Arnulfo Gonzalez MD at [facility] LEFT L4, AND 5 NERVE ROOT INJECTION 2 OF 2 Left 07/22/2018 Performed by Arnulfo Gonzalez MD at [facility] LEFT L4, AND L5 NERVE ROOT 1 OF 2 Left 07/04/2018 Performed by Arnulfo Gonzalez MD at [facility] SHUNT INSERTION TONSILLECTOMY AGE 4 Transcutaneous aortic valve replacement/Transfemoral/Kwan N/A 08/17/2023 Performed by Chava Norris MD at [facility] Valvuloplasty aortic N/A 06/03/2023 Performed by Chava Norris MD at [facility] 6 Clicks: Basic Mobility [...] socks, gait belt Weight Bearing Status: FWB Telemetry/Turkey Farmer: Yes Oxygen Used: Room air Other: Fall [...] 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 mellitus ([facility] Chronic diastolic congestive heart failure ([facility]) Weakness Iron deficiency anemia 07/03/25 1041 Patient Information Initial Pre-Hospitalization Assessment Completed? Completed [...] No Caregiver Needed Patient/Caregiver Goals Patient/Caregiver Goals Nursing Home Care Skilled [facility] Skilled Care (Short Term) Services Requested Patient expects to be discharged to: SNF Does the patient wish to have family/friend/caregiver involved in their discharge planning? No, the patient does not wish to have family/friend/caregiver involved in their discharge planning Discharge Disposition SNF SNF Name [facility] (SNF) [phone] Fax SNF Accepted? (referral sent) Does the patient need discharge transportation arranged? Yes Transportation Arranged Ambulance DC Planning Complete Discharge Milestones Yes DISCHARGE PLANNING NOTE CN met with patient at bedside. CN discussed therapy recommendations and recent hospital admission. Patient agreeable for SNF referral be sent to [facility] only. If [facility] unable to accept, patient would like to return home with [facility]. Patient is current with [facility]. Referral sent to [facility] and [facility]. Discharge plan: [facility] SNF vs Home with [facility] (resume services) [facility] declined due to bed availability. Patient gave CN [facility] as 2nd choice, reviewing/pending bed availability. Daughter at bedside, 2 more choices given. Referrals sent to [facility]. - Bethany Lucero RN 07/03/25 1:47 PM Problem: Pain Goal: Patient goal is pain score less than 4, able to rest, and participant in treatment plan as appropriate Description: INTERVENTIONS: 1. Encourage patient or legal customer service representative to report early pain and ask [...] per policy 9. Teach patient or legal customer service representative interventions for comforting Note: Evaluation of [...] at the bedside 7. Instruct patient/ patient customer service representative about use of safety devices 8. Include patient/ patient customer service representative in decisions related to safety Note: [...] hygiene technique. 7. Identify and instruct patient/patient customer service representative in use of appropriate isolation precautions for identified infection/symptoms. 8. Provide and discuss with patient/patient customer service representative on educational MDRO sheet. 9. Encourage and monitor nutritional status daily and consult compressor battery pellets if indicated. 10. Implement neutropenic guidelines as needed. Note: Evaluation of progress towards goal: Standard precautions in place. Problem: Knowledge Deficit Goal: Patient/patient customer service representative demonstrates understanding of disease process, treatment [...] Collaborate with ancillary departments 14. Include patient/patient customer service representative in decisions related to anxiety Note: [...] care 6. Collaborate with pastoral/spiritual care, social service agency director, mental health counselor as needed. 7. Instruct patient on diversional activities such as physical activity, distraction, and deep breathing exercises to assist with coping 8. Involve patient's customer service representative in care Note: Evaluation of progress [...] discharge planning process 5. Communicate referral to tobacco prevention health educator as appropriate 6. Communicate referral to compressor battery pellets as appropriate 7. Collaborate with case management/social service agency director for discharge needs Note: Evaluation of progress [...] supplement as ordered 13. Collaborate with clinical compressor battery pellets 14. Include patient/ patient's customer service representative in decisions related to nutrition Note: [...] Description: INTERVENTIONS: 1. Encourage patient or legal customer service representative to report early pain and ask [...] per policy 9. Teach patient or legal customer service representative interventions for comforting Outcome: Progressing Note: [...] at the bedside 7. Instruct patient/ patient customer service representative about use of safety devices 8. Include patient/ patient customer service representative in decisions related to safety Outcome: [...] hygiene technique. 7. Identify and instruct patient/patient customer service representative in use of appropriate isolation precautions for identified infection/symptoms. 8. Provide and discuss with patient/patient customer service representative on educational MDRO sheet. 9. Encourage and monitor nutritional status daily and consult compressor battery pellets if indicated. 10. Implement neutropenic guidelines as needed. Outcome: Progressing Note: Evaluation of progress towards goal: Patient VS WNL, remains afebrile for shift. Continue to monitor. Problem: Knowledge Deficit Goal: Patient/patient customer service representative demonstrates understanding of disease process, treatment [...] Collaborate with ancillary departments 14. Include patient/patient customer service representative in decisions related to anxiety Outcome: [...] care 6. Collaborate with pastoral/spiritual care, social service agency director, mental health counselor as needed. 7. Instruct patient on diversional activities such as physical activity, distraction, and deep breathing exercises to assist with coping 8. Involve patient's customer service representative in care Outcome: Progressing Note: Evaluation [...] discharge planning process 5. Communicate referral to tobacco prevention health educator as appropriate 6. Communicate referral to compressor battery pellets as appropriate 7. Collaborate with case management/social service agency director for discharge needs Outcome: Progressing Note: Evaluation [...] supplement as ordered 13. Collaborate with clinical compressor battery pellets 14. Include patient/ patient's customer service representative in decisions related to nutrition Outcome: [...] needed, labs monitored. [facility] Progress note Formatting of t his note might be different from the original. DISCHARGE PLANNING NOTE BLS transport with Sonny confirmed via PTN to [facility] 8..25 at 1800 [facility] 07-05-2025 Progress note Formatting of t his note is different from the original. 07/05/25 1028 Services Requested Patient expects to be discharged to: SNF Discharge Disposition [facility] [address] [place] [address] extension [phone] Fax SNF Accepted? Yes Transportation Arranged Ambulance Patient choice offered Yes List Provided Yes [facility] List Provided Nursing Home Facility DC Planning Complete Discharge Milestones Yes DISCHARGE PLANNING NOTE Discharge plan: Discharge orders noted. Transportation arranged for 2pm moss picker. Lior updated on transport time. [facility]F and 7000 sent via [employer]. - Bethany Lucero RN 07/05/25 10:29 AM [facility] 07-05-2025 Miscellaneous Notes Cloth Examiner Machine spoke with patient's daughter to schedule a new Patient appointment. She states she will call back to schedule. Looking to get a second opinion. Office number provided documented in this encounter [facility] 07-05-2025 Telephone encounter Note Cloth Examiner Machine spoke with patient's daughter to schedule a new Patient appointment. She states she will call back to schedule. Looking to get a second opinion. Office number provided [facility] 07-05-2025 Hospital course Narrative Images from the original note were not included. [facility] ROXI ZABALA INTERNAL MEDICINE [facility] [address] [place] [phone] Hospital Medicine Discharge Summary Patient: Cuca Dee Date of : 1945 Room: [facility] Encounter date: 07/05/25 Hospital Day: 4 DATE OF ADMISSION: 07/02/2025 DATE OF DISCHARGE:07/05/2025 DISCHARGE DIAGNOSES Principal Problem: Intractable nausea and vomiting Active Problems: 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 mellitus ([facility] Chronic diastolic congestive heart failure ([facility] Weakness Iron deficiency anemia Adnexal mass CONSULTANTS None PCP: Vj Gray, [employer] None HOSPITAL COURSE SUMMARY Ms. Cuca Dee is a pleasant 80-year-old female who came from [facility] they did not have any open beds [...] was negative PT and OT seen recommend [facility] facility. Patient was given 1 day of IV fluids did cover for UTI with Rocephin since urine culture was negative did initially have on clear liquids advance diet as tolerated. Electrolytes were replaced. Patient is stable to discharge to [facility] facility was having some anxiety did start [...] as low as reasonably achievable. 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 DISCHARGE INSTRUCTION Disposition: intermediate facility Condition:Stable Activity: activity as tolerated Diet: Adult nutrition supplements Adult diet Regular Texture Adult diet Follow up: KAIDEN Hopkins within 7-[address] Levine's for the left adnexal cyst Labs/Imaging/Pathology: BMP and CBC one week Discharge Medications: Medication List START taking these medications Instructions Last Dose Given Next Dose Due busPIRone 5 mg tablet Commonly known as: BUSPAR Take 1 tablet (5 mg total) by mouth 3 (three) times a day. insulin glargine 100 unit/mL (3 mL) insulin pen Commonly known as: RAJESH GRAVES Inject 10 Units under the skin nightly. [...] Your Medications These medications were sent to [id number] - [facility] [address] [id number] insulin glargine 100 unit/mL (3 mL) insulin pen Information about where to get these medications is not yet available Ask your nurse or doctor about these medications busPIRone 5 mg tablet ferrous sulfate 325 (65 FE) MG tablet magnesium oxide 400 mg tablet polyethylene glycol 17 gram packet >30 minutes were spent on discharging this patient. KAIDEN Magana 07/05/2025 5:09 PM [facility] Physicians [facility] Internal Medicine 7AM-7PM & 7PM-7AM: [...] discharged in stable condition. Follow up with chiropractor sole practitioner Onc as outpatient for left adnexal mass. documented in this encounter [facility] 07-04-2025 Plan of care note Problem: Pain Goal: Patient goal is pain score less than 4, able to rest, and participant in treatment plan as appropriate Description: INTERVENTIONS: 1. Encourage patient or legal customer service representative to report early pain and ask [...] per policy 9. Teach patient or legal customer service representative interventions for comforting Outcome: Progressing Note: [...] at the bedside 7. Instruct patient/ patient customer service representative about use of safety devices 8. Include patient/ patient customer service representative in decisions related to safety Outcome: [...] hygiene technique. 7. Identify and instruct patient/patient customer service representative in use of appropriate isolation precautions for identified infection/symptoms. 8. Provide and discuss with patient/patient customer service representative on educational MDRO sheet. 9. Encourage and monitor nutritional status daily and consult compressor battery pellets if indicated. 10. Implement neutropenic guidelines as needed. Outcome: Progressing Note: Evaluation of progress towards goal: Patient VS WNL, remains afebrile for shift. Continue to monitor. Problem: Knowledge Deficit Goal: Patient/patient customer service representative demonstrates understanding of disease process, treatment [...] Collaborate with ancillary departments 14. Include patient/patient customer service representative in decisions related to anxiety Outcome: [...] care 6. Collaborate with pastoral/spiritual care, social service agency director, mental health counselor as needed. 7. Instruct patient on diversional activities such as physical activity, distraction, and deep breathing exercises to assist with coping 8. Involve patient's customer service representative in care Outcome: Progressing Note: Evaluation [...] discharge planning process 5. Communicate referral to tobacco prevention health educator as appropriate 6. Communicate referral to compressor battery pellets as appropriate 7. Collaborate with case management/social service agency director for discharge needs Outcome: Progressing Note: Evaluation [...] supplement as ordered 13. Collaborate with clinical compressor battery pellets 14. Include patient/ patient's customer service representative in decisions related to nutrition Outcome: [...] Score of =/> 25 or indicated by [facility] Assessment Goal: Patient should be free from fall Description: Interventions: 1. Story to environment 2. Hourly rounds addressing the [...] non-skid footwear 11. Teach patient and patient customer service representative to maintain environment for safety and [...] (cane, walker) within reach 19. Request patient customer service representative bring adaptive equipment/mobility aids from home or obtain and provide as needed 20. Consult pharmacy regarding effects of med's affecting mobility, cognition, and alternatives 21. Obtain physician order for PT if risk factors associated with mobility are present 22. Obtain physician order for OT as appropriate 23. Utilize diversional activities 24. Educate patient and patient customer service representative how to maintain a safe environment during visitation times (notify nurse prior to leaving bedside) 25. Consider appropriateness of medical or non-medical sonographer 26. Set up voiding schedule as appropriate [...] Handoff to next level of care provider (healthcare science specialist, PCP, home care). 5. Complete follow up [...] goal: Continue to assess for when appropriate. [email or web address] 07-04-2025 Progress note Formatting of t his note might be different from the original. DISCHARGE PLANNING NOTE Prior Auth approved for admission to : [place] [facility] P# ; F# Approval # [id number] Valid for Dates: 07/04/25 - 07/10/25 [facility] Qiro [facility] 07-04-2025 Progress note Formatting of t his note might be different from the original. DISCHARGE PLANNING NOTE Prior auth submitted to: [employer] Via: Sandi On behalf of : Lee Gambino P# ; F# REF# [id number] [email or web address] 07-04-2025 Nurse Note Patient noted to have pulled out IV and telemetry. Cloth Examiner Machine completed adl's. Patient refused to replace another IV and/ lunch. Jazmine Do CNP advised and see new order. [facility] 07-04-2025 Progress note Formatting of t [...] discharge planning Discharge Disposition SNF SNF Name [facility] (SNF) [phone] Fax SNF Accepted? -- [referral sent] Does the patient need discharge transportation arranged? Yes Transportation Arranged Ambulance DC Planning Complete Discharge Milestones Yes Respiratory Indicator Does the patient currently have home respiratory equipment? No Will the patient need home respiratory equipment upon discharge? No, it is expected that patient will NOT discharge home with respiratory DME needs Discharge plan: [facility] vs Home with [facility] (resume services) [facility] to perform on-site this morning. CN called and left a voicemail for admissions to confirm if onsite was completed/if patient can be accepted. [place] pending bed availability. Once accepting facility established, will start insurance auth. - Bethany Lucero RN 07/04/25 12:28 PM Update: CN spoke with [facility] admissions, they have accepted patient, ok to start precert. Cn called patient's daughter Ileana, agreeable with plan of care. [employer] tasked to start insurance auth for [facility]. - Bethany Lucero RN 07/04/25 1:29 PM [facility] 07-04-2025 History of Present illness Narrative Images from the original note were not included. [facility] ROXI ZABALA INTERNAL MEDICINE [facility] - [address] MED [address] [place] [phone] Hospital Medicine Progress Note Patient: Cuca Dee Date of : 1945 Room: 241 PCP: KAIDEN Hopkins Admission date: 07/02/2025 5:45 PM Encounter date: 07/04/25 Hospital Day: 3 SUBJECTIVE Interval History: Status: improved. No overnight events. Patient reports feels ok today. Denies any chest pain/pressure or shortness of breath. Denies any nausea reports that she feels it was the eggs. Upset that she can't go to [facility]. 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 snf coming to do a bed side evaluation today. Patient is anxious about where she is going and when she is going will add small dose of BuSpar can hold for sedation. Medically Ready for Discharge: Anticipated Tomorrow KAIDEN Magana 07/04/2025 4:11 PM [facility] Internal Medicine 7AM-7PM & 7PM-7AM: EpicChat or page through On-Call Finder. KAIDEN Magana 07/04/25 1258 Physician Attestation I, Felix Hallman MD, personally [...] to hold Lasix documented in this encounter [facility] 07-04-2025 Progress note Formatting of t his note is different from the original. Physical Therapy Reason For Patient Refusal (comment required): (P) Pain (Pt c/o back pain and requesting to defer therapy until she has her SNF consult today. Will check back later with pt) [facility] 07-04-2025 Progress note Formatting of t [...] stating she wants to talk to the [facility] rep. When they get here and then do therapy. OT encouraged sitting at EOB for simple ADLs, however, pt again declined this. OT to defer treatment at this time and will attempt again at a later time. [facility] Work Phone: 07-04-2025 Plan of care note [...] also shows no change in renal function. [email or web address] [facility] Work Phone: 07-04-2025 Plan of care note Problem: Pain Goal: Patient goal is pain score less than 4, able to rest, and participant in treatment plan as appropriate Description: INTERVENTIONS: 1. Encourage patient or legal customer service representative to report early pain and ask [...] per policy 9. Teach patient or legal customer service representative interventions for comforting Note: Evaluation of [...] at the bedside 7. Instruct patient/ patient customer service representative about use of safety devices 8. Include patient/ patient customer service representative in decisions related to safety Note: Evaluation of progress towards goal: safety precautions in place. [email or web address] [facility] 07-03-2025 Plan of care note Problem: Pain Goal: Patient goal is pain score less than 4, able to rest, and participant in treatment plan as appropriate Description: INTERVENTIONS: 1. Encourage patient or legal customer service representative to report early pain and ask [...] per policy 9. Teach patient or legal customer service representative interventions for comforting Outcome: Progressing Note: [...] at the bedside 7. Instruct patient/ patient customer service representative about use of safety devices 8. Include patient/ patient customer service representative in decisions related to safety Outcome: [...] hygiene technique. 7. Identify and instruct patient/patient customer service representative in use of appropriate isolation precautions for identified infection/symptoms. 8. Provide and discuss with patient/patient customer service representative on educational MDRO sheet. 9. Encourage and monitor nutritional status daily and consult compressor battery pellets if indicated. 10. Implement neutropenic guidelines as needed. Outcome: Progressing Note: Evaluation of progress towards goal: Patient VS WNL, remains afebrile for shift. Continue to monitor. Problem: Knowledge Deficit Goal: Patient/patient customer service representative demonstrates understanding of disease process, treatment [...] Collaborate with ancillary departments 14. Include patient/patient customer service representative in decisions related to anxiety Outcome: [...] care 6. Collaborate with pastoral/spiritual care, social service agency director, mental health counselor as needed. 7. Instruct patient on diversional activities such as physical activity, distraction, and deep breathing exercises to assist with coping 8. Involve patient's customer service representative in care Outcome: Progressing Note: Evaluation [...] discharge planning process 5. Communicate referral to tobacco prevention health educator as appropriate 6. Communicate referral to compressor battery pellets as appropriate 7. Collaborate with case management/social service agency director for discharge needs Outcome: Progressing Note: Evaluation [...] supplement as ordered 13. Collaborate with clinical compressor battery pellets 14. Include patient/ patient's customer service representative in decisions related to nutrition Outcome: [...] Score of =/> 25 or indicated by [facility] Assessment Goal: Patient should be free from fall Description: Interventions: 1. Story to environment 2. Hourly rounds addressing the [...] non-skid footwear 11. Teach patient and patient customer service representative to maintain environment for safety and [...] (cane, walker) within reach 19. Request patient customer service representative bring adaptive equipment/mobility aids from home or obtain and provide as needed 20. Consult pharmacy regarding effects of med's affecting mobility, cognition, and alternatives 21. Obtain physician order for PT if risk factors associated with mobility are present 22. Obtain physician order for OT as appropriate 23. Utilize diversional activities 24. Educate patient and patient customer service representative how to maintain a safe environment during visitation times (notify nurse prior to leaving bedside) 25. Consider appropriateness of medical or non-medical sonographer 26. Set up voiding schedule as appropriate [...] Handoff to next level of care provider (healthcare science specialist, PCP, home care). 5. Complete follow up [...] goal: Continue to assess for when appropriate. [facility] 07-03-2025 Consult note Associated Order (s): IP CONSULT TO NUTRITION SERVICES Summary: Nutrition Assessment NUTRITION ADULT INITIAL EVALUATION NUTRITION ASSESSMENT: Consult received regarding Type 2 DM, and predicted sub-optimal PO intake related to c/o n/v. 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 mellitus ([facility]) Chronic diastolic congestive heart failure ([facility]) Weakness Iron deficiency anemia Past Medical History: Past Medical History: Diagnosis Date Anemia Arthritis Asthma very mild, no inhaler use Cataract Dental disease Depression Diabetes mellitus ([facility]) Diabetes mellitus type 2, controlled [place] Encephalitis Foot fracture, left GERD (gastroesophageal reflux disease) Heart murmur HLD (hyperlipidemia) Hypertension Incontinence Injury of back Insulin dependent diabetes mellitus Kidney failure STAGE 4 Lumbar spondylolysis Murmur Obesity CHELSEA (obstructive sleep apnea) no machine Peptic ulceration Peripheral vascular disease Shortness of breath Stroke ([facility]) 02/27/2024 TIA (transient ischemic attack) Upper respiratory infection UTI (urinary tract infection) Visual impairment Wears dentures Past Surgical History: Past Surgical History: Procedure Laterality Date BREAST BIOPSY Right 03/01/2023 ULT BIOPSY CATARACT EXTRACTION SECTION SECTION 03/14/1974 EGD N/A 10/17/2019 Performed by Sarai Bell DO at [facility] H-PERCUTANEOUS CORONARY INTERVENTION HYSTEROSCOPY DILATION CURETTAGE MYOSURE N/A 01/29/2021 Performed by Jv Briones MD at [facility] INJECTION BLOCK EPIDURAL CAUDAL STEROID N/A 08/14/2022 Performed by Arnulfo Gonzalez MD at [facility] INJECTION BLOCK EPIDURAL CAUDAL STEROID N/A 06/06/2021 Performed by Arnulfo Gonzalez MD at [facility] INJECTION BLOCK EPIDURAL CAUDAL STEROID N/A 04/25/2021 Performed by Arnulfo Gonzalez MD at [facility] INJECTION CAUDAL EPIDURAL WITH CATHETER, STEROID N/A 05/03/2020 Performed by Arnulfo Gonzalez MD at [facility] INJECTION CAUDAL EPIDURAL WITH CATHETER, STEROID N/A 11/24/2019 Performed by Arnulfo Gonzalez MD at [facility] INJECTION CAUDAL EPIDURAL WITH CATHETER, STEROID N/A 04/21/2019 Performed by Arnulfo Gonzalez MD at [facility] MEDIAL BRANCH NERVE BLOCK Bilateral L 4/5, 5/1 Bilateral 08/18/2019 Performed by Arnulfo Gonzalez MD at [facility] INJECTION MEDIAL BRANCH NERVE BLOCK Bilateral L 4/5, 5/1 Bilateral 06/23/2019 Performed by Arnulfo Gonzalez MD at [facility] INJECTION STEROID EPI 1 WITH SEDATION Right L 4, 5 NR Right 03/17/2019 Performed by Arnulfo Gonzalez MD at [facility] INJECTION STEROID EPI 1 WITH SEDATION: right L45 nroot Right 08/15/2018 Performed by Arnulfo Gonzalez MD at [facility] LEFT L4, AND 5 NERVE ROOT INJECTION 2 OF 2 Left 07/22/2018 Performed by Arnulfo Gonzalez MD at [facility] LEFT L4, AND L5 NERVE ROOT 1 OF 2 Left 07/04/2018 Performed by Arnulfo Gonzalez MD at [facility] SHUNT INSERTION TONSILLECTOMY AGE 4 Transcutaneous aortic valve replacement/Transfemoral/Kwan N/A 08/17/2023 Performed by Chava Norris MD at [facility] Valvuloplasty aortic N/A 06/03/2023 Performed by Chava Norris MD at [facility] Social/ Cognitive/ Economic: Pt lives with her daughter Allergies: No Known Allergies Nutrition Focused Physical Findings 1. Extremities, Muscles, and Bones 2. Skin: Skin Color: Kinder (07/03/25 0750) Skin Temp: Warm (07/03/25 0750) [...] 16 12/04/2024 Lab Results Component Value Date [id number] 02/13/2025 Lab Results Component Value Date [...] packet 17 g 17 g oral Daily LISA MaganaARCHITECT NAVAL 17 g at 07/03/25 1152 promethazine (PHENERGAN) [...] (185 lb) Percent Usual Body Weight: 96% [place] Body Weight: 57 (07/02/25 1815) Percent [place] Body Weight: 138% Body mass index is [...] Based on Comparative Standards: Estimated Energy Needs: 5083-1366 kcals daily. Method and weight used: 25-30 kcal/kg IBW Estimated Protein Needs: 68-114 grams daily. Method and weight used: 1.2-2 g protein/kg IBW Estimated Fluid Needs: 4811-1699 ml daily. Method weight used: 1 ml/kcal [...] estimated protein and kcal needs. Pt told newspaper writer that Breakfast did not sit well with her either. Pt with h/o Type 2 DM, pt stated last A1c from Endocrinology office was below 7%, pt wears a Dex Com CGM. Pt's BG ranging from 99-204, Humalog ssc ac and hs ordered, pt reports taking Levemir 20 units and Humalog ssc ac at home. Notified ARCHITECT NAVAL of home Levemir dose as not on med rec, ordered Lantus 10 units to start tonight. NUTRITION INTERVENTIONS: Meals & snacks: Clear liquid diet Supplements (medical food, vitamin or mineral): Ensure Clear TID Coordination of nutrition care: discussed insulin needs with ARCHITECT NAVAL Coordination of nutrition care: reviewed home insulin regimen with pt Goals: Tolerates oral intake RECOMMENDATIONS: Continue Clear Liquid diet, will add Ensure Clear TID. Advance diet to Regular as tolerance permits. Will monitor PO tolerance as diet advanced. Nutrition Monitoring and Evaluation: Fluid/Beverage Intake (1.2.1), Food Intake (1.2.2), and Weight Change, Lab Values and POC Waleska Ball RD, LD, CDCES [facility] 07-03-2025 Consult note Associated Order (s): [...] heart failure (CMS-HCC) Weakness Iron deficiency anemia Past Medical History: Past Medical History: Diagnosis Date Anemia Arthritis Asthma very mild, no inhaler use Cataract Dental disease Depression Diabetes mellitus [place] Diabetes mellitus type 2, controlled [place] Encephalitis Foot fracture, left GERD (gastroesophageal reflux disease) Heart murmur HLD (hyperlipidemia) Hypertension Incontinence Injury of back Insulin dependent diabetes mellitus Kidney failure STAGE 4 Lumbar spondylolysis Murmur Obesity CHELSEA (obstructive sleep apnea) no machine Peptic ulceration Peripheral vascular disease Shortness of breath Stroke ([facility]) 02/27/2024 TIA (transient ischemic attack) Upper respiratory infection UTI (urinary tract infection) Visual impairment Wears dentures Past Surgical History: Past Surgical History: Procedure Laterality Date BREAST BIOPSY Right 03/01/2023 ULT BIOPSY CATARACT EXTRACTION SECTION SECTION 03/14/1974 EGD N/A 10/17/2019 Performed by Sarai Bell DO at [facility] H-PERCUTANEOUS CORONARY INTERVENTION HYSTEROSCOPY DILATION CURETTAGE MYOSURE N/A 01/29/2021 Performed by Jv Briones MD at [facility] INJECTION BLOCK EPIDURAL CAUDAL STEROID N/A 08/14/2022 Performed by Arnulfo Gonzalez MD at [facility] INJECTION BLOCK EPIDURAL CAUDAL STEROID N/A 06/06/2021 Performed by Arnulfo Gonzalez MD at [facility] INJECTION BLOCK EPIDURAL CAUDAL STEROID N/A 04/25/2021 Performed by Arnulfo Gonzalez MD at [facility] INJECTION CAUDAL EPIDURAL WITH CATHETER, STEROID N/A 05/03/2020 Performed by Arnulfo Gonzalez MD at [facility] INJECTION CAUDAL EPIDURAL WITH CATHETER, STEROID N/A 11/24/2019 Performed by rAnulfo Gonzalez MD at [facility] IN[facility]CTION CAUDAL EPIDURAL WITH CATHETER, STEROID N/A 04/21/2019 Performed by Arnulfo Gonzalez MD at [facility] MEDIAL BRANCH NERVE BLOCK Bilateral L 4/5, 5/1 Bilateral 08/18/2019 Performed by Arnulfo Gonzalez MD at [facility] MEDIAL BRANCH NERVE BLOCK Bilateral L 4/5, 5/1 Bilateral 06/23/2019 Performed by Arnulfo Gonzalez MD at [facility] IN[facility] STEROID EPI 1 WITH SEDATION Right L 4, 5 NR Right 03/17/2019 Performed by Arnulfo Gonzalez MD at [facility] IN[facility] STEROID EPI 1 WITH SEDATION: right L45 nroot Right 08/15/2018 Performed by Arnulfo Gonzalez MD at [facility] LEFT L4, AND 5 NERVE ROOT INJECTION 2 OF 2 Left 07/22/2018 Performed by Arnulfo Gonzalez MD at [facility] LEFT L4, AND L5 NERVE ROOT 1 OF 2 Left 07/04/2018 Performed by Arnulfo Gonzalez MD at [facility] SHUNT INSERTION TONSILLECTOMY AGE 4 Transcutaneous aortic valve replacement/Transfemoral/Kwan N/A 08/17/2023 Performed by Chava Norris MD at [facility] Valvuloplasty aortic N/A 06/03/2023 Performed by Chava Norris MD at [facility] Social/ Cognitive/ Economic: Pt lives with her daughter Allergies: No Known Allergies Nutrition Focused Physical Findings 1. Extremities, Muscles, and Bones 2. Skin: Skin Color: Kinder (07/03/25 0750) Skin Temp: Warm (07/03/25 0750) [...] 3 days Lab Units 07/03/25 0507/02/25 1038 WBC x10E9/L 6.2 7.2 HEMOGLOBIN g/dL 9.2* 10.3* HEMATOCRIT % 27.6* 31.1* PLATELETS X10E9/L 314 401 MCV fL 81 80 Results from last 3 days Lab Units 07/03/25 0507/02/25 1038 MAGNESIUM mg/dL 1.8 1.4* Results from [...] 16 12/04/2024 Lab Results Component Value Date [id number] 187 02/13/2025 Lab Results Component Value Date [...] mL IVPB 2,000 mg intravenous PRN Felix Hlalman MD calcium gluconate 3,000 mg in sodium [...] (185 lb) Percent Usual Body Weight: 96% [place] Body Weight: 57 (07/02/25 1815) Percent [place] Body Weight: 138% Body mass index is [...] Based on Comparative Standards: Estimated Energy Needs: 8262-6870 kcals daily. Method and weight used: 25-30 kcal/kg IBW Estimated Protein Needs: 68-114 grams daily. Method and weight used: 1.2-2 g protein/kg IBW Estimated Fluid Needs: 1577-4873 ml daily. Method weight used: 1 ml/kcal [...] estimated protein and kcal needs. Pt told newspaper writer that Breakfast did not sit well with her either. Pt with h/o Type 2 DM, pt stated last A1c from Endocrinology office was below 7%, pt wears a Dex Com CGM. Pt's BG ranging from 99-204, Humalog ssc ac and hs ordered, pt reports taking Levemir 20 units and Humalog ssc ac at home. Notified ARCHITECT NAVAL of home Levemir dose as not on med rec, ordered Lantus 10 units to start tonight. NUTRITION INTERVENTIONS: Meals & snacks: Clear liquid diet Supplements (medical food, vitamin or mineral): Ensure Clear TID Coordination of nutrition care: discussed insulin needs with ARCHITECT NAVAL Coordination of nutrition care: reviewed home insulin regimen with pt Goals: Tolerates oral intake RECOMMENDATIONS: Continue Clear Liquid diet, will add Ensure Clear TID. Advance diet to Regular as tolerance permits. Will monitor PO tolerance as diet advanced. Nutrition Monitoring and Evaluation: Fluid/Beverage Intake (1.2.1), Food Intake (1.2.2), and Weight Change, Lab Values and POC Waleska Ball RD, LD, CDCES documented in this encounter [employer] 07-03-2025 Progress note Formatting of t his [...] status/safety, Fall risk, ADL status, Endurance level Memory Care Program Director Support for-: Mobility Deficits, ADL Deficits Therapy Plan Need for skilled Occupational Therapy to address deficits in ADL independence and functional mobility due to a status decline resulting from weakness. Past Medical History: Diagnosis Date Anemia Arthritis Asthma very mild, no inhaler use Cataract Dental disease Depression Diabetes mellitus [place] Diabetes mellitus type 2, controlled ([facility]) Encephalitis Foot fracture, left GERD (gastroesophageal reflux disease) Heart murmur HLD (hyperlipidemia) Hypertension Incontinence Injury of back Insulin dependent diabetes mellitus Kidney failure STAGE 4 Lumbar spondylolysis Murmur Obesity CHELSEA (obstructive sleep apnea) no machine Peptic ulceration Peripheral vascular disease Shortness of breath Stroke ([facility] 02/27/2024 TIA (transient ischemic attack) Upper respiratory infection UTI (urinary tract infection) Visual impairment Wears dentures Past Surgical History: Procedure Laterality Date BREAST BIOPSY Right 03/01/2023 ULT BIOPSY CATARACT EXTRACTION SECTION SECTION 03/14/1974 EGD N/A 10/17/2019 Performed by Sarai Bell DO at [facility] H-PERCUTANEOUS CORONARY INTERVENTION HYSTEROSCOPY DILATION CURETTAGE MYOSURE N/A 01/29/2021 Performed by Jv Briones MD at [facility] INJECTION BLOCK EPIDURAL CAUDAL STEROID N/A 08/14/2022 Performed by Arnulfo Gonzalez MD at [facility] INJECTION BLOCK EPIDURAL CAUDAL STEROID N/A 06/06/2021 Performed by Arnulfo Gonzalez MD at [facility] INJECTION BLOCK EPIDURAL CAUDAL STEROID N/A 04/25/2021 Performed by Arnulfo Gonzalez MD at [facility] INJECTION CAUDAL EPIDURAL WITH CATHETER, STEROID N/A 05/03/2020 Performed by Arnulfo Gonzalez MD at [facility] INJECTION CAUDAL EPIDURAL WITH CATHETER, STEROID N/A 11/24/2019 Performed by Arnulfo Gonzalez MD at [facility] INJECTION CAUDAL EPIDURAL WITH CATHETER, STEROID N/A 04/21/2019 Performed by Arnulfo Gonzalez MD at [facility] INJECTION MEDIAL BRANCH NERVE BLOCK Bilateral L 4/5, 5/1 Bilateral 08/18/2019 Performed by Arnulfo Gonzalez MD at [facility] MEDIAL BRANCH NERVE BLOCK Bilateral L 4/5, 5/1 Bilateral 06/23/2019 Performed by Arnulfo Gonzalez MD at [facility] INJECTION STEROID EPI 1 WITH SEDATION Right L 4, 5 NR Right 03/17/2019 Performed by Arnulfo Gonzalez MD at [facility] INJECTION STEROID EPI 1 WITH SEDATION: right L45 nroot Right 08/15/2018 Performed by Arnulfo Gonzalez MD at [facility] LEFT L4, AND 5 NERVE ROOT INJECTION 2 OF 2 Left 07/22/2018 Performed by Arnulfo Gonzalez MD at [facility] LEFT L4, AND L5 NERVE ROOT 1 OF 2 Left 07/04/2018 Performed by Arnulfo Gonzalez MD at [facility] SHUNT INSERTION TONSILLECTOMY AGE 4 Transcutaneous aortic valve replacement/Transfemoral/Kwan N/A 08/17/2023 Performed by Chava Norris MD at [facility] Valvuloplasty aortic N/A 06/03/2023 Performed by Chava Norris MD at [facility] 6 Clicks: Daily Activity [...] socks, gait belt Weight Bearing Status: FWB Telemetry/Turkey Farmer: Yes Oxygen Used: Room air Other: Fall [...] due to type 2 diabetes mellitus ([facility] Chronic diastolic congestive heart failure ([facility] Weakness Iron deficiency anemia T [employer] 07-03-2025 Progress note Formatting of t his [...] status/safety, Fall risk, ADL status, Endurance level Memory Care Program Director Support for-: Mobility Deficits, ADL Deficits Therapy Plan Need for skilled Physical Therapy to address deficits in functional mobility due to a status decline resulting from generalized weakness/decreased activity macario d/t intractable n/v. Past Medical History: Diagnosis Date Anemia Arthritis Asthma very mild, no inhaler use Cataract Dental disease Depression Diabetes mellitus [place] Diabetes mellitus type 2, controlled ([facility] Encephalitis Foot fracture, left GERD (gastroesophageal reflux disease) Heart murmur HLD (hyperlipidemia) Hypertension Incontinence Injury of back Insulin dependent diabetes mellitus Kidney failure STAGE 4 Lumbar spondylolysis Murmur Obesity CHELSEA (obstructive sleep apnea) no machine Peptic ulceration Peripheral vascular disease Shortness of breath Stroke [place] 02/27/2024 TIA (transient ischemic attack) Upper respiratory infection UTI (urinary tract infection) Visual impairment Wears dentures Past Surgical History: Procedure Laterality Date BREAST BIOPSY Right 03/01/2023 ULT BIOPSY CATARACT EXTRACTION SECTION SECTION 03/14/1974 EGD N/A 10/17/2019 Performed by Sarai Bell DO at [facility] H-PERCUTANEOUS CORONARY INTERVENTION HYSTEROSCOPY DILATION CURETTAGE MYOSURE N/A 01/29/2021 Performed by Jv Briones MD at [facility] INJECTION BLOCK EPIDURAL CAUDAL STEROID N/A 08/14/2022 Performed by Arnulfo Gonzalez MD at [facility] INJECTION BLOCK EPIDURAL CAUDAL STEROID N/A 06/06/2021 Performed by Arnulfo Gonzalez MD at [facility] INJECTION BLOCK EPIDURAL CAUDAL STEROID N/A 04/25/2021 Performed by Arnulfo Gonzalez MD at [facility] INJECTION CAUDAL EPIDURAL WITH CATHETER, STEROID N/A 05/03/2020 Performed by Arnulfo Gonzalez MD at [facility] INJECTION CAUDAL EPIDURAL WITH CATHETER, STEROID N/A 11/24/2019 Performed by Arnulfo Gonzalez MD at [facility] INJECTION CAUDAL EPIDURAL WITH CATHETER, STEROID N/A 04/21/2019 Performed by Arnulfo Gonzalez MD at [facility] MEDIAL BRANCH NERVE BLOCK Bilateral L 4/5, 5/1 Bilateral 08/18/2019 Performed by Arnulfo Gonzalez MD at [facility] MEDIAL BRANCH NERVE BLOCK Bilateral L 4/5, 5/1 Bilateral 06/23/2019 Performed by Arnulfo Gonzalez MD at [facility] INJECTION STEROID EPI 1 WITH SEDATION Right L 4, 5 NR Right 03/17/2019 Performed by Arnulfo Gonzalez MD at [facility] INJECTION STEROID EPI 1 WITH SEDATION: right L45 nroot Right 08/15/2018 Performed by Arnulfo Gonzalez MD at [facility] LEFT L4, AND 5 NERVE ROOT INJECTION 2 OF 2 Left 07/22/2018 Performed by Arnulfo Gonzalez MD at [facility] LEFT L4, AND L5 NERVE ROOT 1 OF 2 Left 07/04/2018 Performed by Arnulfo Gonzalez MD at [facility] SHUNT INSERTION TONSILLECTOMY AGE 4 Transcutaneous aortic valve replacement/Transfemoral/Kwan N/A 08/17/2023 Performed by Chava Norris MD at [facility] Valvuloplasty aortic N/A 06/03/2023 Performed by Chava Norris MD at [facility] 6 Clicks: Basic Mobility [...] socks, gait belt Weight Bearing Status: FWB Telemetry/Turkey Farmer: Yes Oxygen Used: Room air Other: Fall [...] 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 mellitus ([facility]) Chronic diastolic congestive heart failure ([facility]) Weakness Iron deficiency anemia [employer] 07-03-2025 Progress note Formatting of t his note is different from the original. 07/03/25 4238 Patient Information Initial Pre-Hospitalization Assessment Completed? Completed [...] No Caregiver Needed Patient/Caregiver Goals Patient/Caregiver Goals Nursing Home Care Skilled [facility] Skilled Care (Short Term) Services Requested Patient expects to be discharged to: SNF Does the patient wish to have family/friend/caregiver involved in their discharge planning? No, the patient does not wish to have family/friend/caregiver involved in their discharge planning Discharge Disposition SNF SNF Name [facility] ([facility]) [phone] Fax SNF Accepted? (referral sent) Does the patient need discharge transportation arranged? Yes Transportation Arranged Ambulance DC Planning Complete Discharge Milestones Yes DISCHARGE PLANNING NOTE CN met with patient at bedside. CN discussed therapy recommendations and recent hospital admission. Patient agreeable for SNF referral be sent to [facility] only. If [facility] unable to accept, patient would like to return home with [facility]. Patient is current with [facility]. Referral sent to [facility] and [facility]. Discharge plan: [facility] SNF vs Home with [facility] (resume services) [facility] declined due to bed availability. Patient gave CN [facility] as 2nd choice, reviewing/pending bed availability. Daughter at bedside, 2 more choices given. Referrals sent to [facility] and [facility]. - Bethany Lucero RN 07/03/25 1:47 PM [facility] 07-03-2025 Plan of care note Problem: Pain Goal: Patient goal is pain score less than 4, able to rest, and participant in treatment plan as appropriate Description: INTERVENTIONS: 1. Encourage patient or legal customer service representative to report early pain and ask [...] per policy 9. Teach patient or legal customer service representative interventions for comforting Note: Evaluation of [...] at the bedside 7. Instruct patient/ patient customer service representative about use of safety devices 8. Include patient/ patient customer service representative in decisions related to safety Note: [...] hygiene technique. 7. Identify and instruct patient/patient customer service representative in use of appropriate isolation precautions for identified infection/symptoms. 8. Provide and discuss with patient/patient customer service representative on educational MDRO sheet. 9. Encourage and monitor nutritional status daily and consult compressor battery pellets if indicated. 10. Implement neutropenic guidelines as needed. Note: Evaluation of progress towards goal: Standard precautions in place. Problem: Knowledge Deficit Goal: Patient/patient customer service representative demonstrates understanding of disease process, treatment [...] Collaborate with ancillary departments 14. Include patient/patient customer service representative in decisions related to anxiety Note: [...] care 6. Collaborate with pastoral/spiritual care, social service agency director, mental health counselor as needed. 7. Instruct patient on diversional activities such as physical activity, distraction, and deep breathing exercises to assist with coping 8. Involve patient's customer service representative in care Note: Evaluation of progress [...] discharge planning process 5. Communicate referral to tobacco prevention health educator as appropriate 6. Communicate referral to compressor battery pellets as appropriate 7. Collaborate with case management/social service agency director for discharge needs Note: Evaluation of progress [...] supplement as ordered 13. Collaborate with clinical compressor battery pellets 14. Include patient/ patient's customer service representative in decisions related to nutrition Note: [...] Note: Evaluation of progress towards goal: monitor [facility] 07-03-2025 History and physical note Images from the original note were not included. [facility] INTERNAL MEDICINE [facility] [address] [place] [phone] Hospital Medicine History & Physical Patient: Cuca Dee Date of : 1945 Room: [facility] PCP: KAIDEN Hopkins Admission date: 07/02/2025 5:45 [...] 351-400 mg/dL, give 10 units 02/24/25 Yes Rosario Albright APRN-ARCHITECT [employer] letrozole (FEMARA) 2.5 mg chemo tablet Take 1 tablet by mouth daily 01/25/25 01/20/26 Yes Casimiro Muñoz MD mirtazapine (REMERON) 7.5 mg tablet Take 1 tablet (7.5 mg total) by mouth nightly. 01/22/25 Yes Pma Stinson APRN-[employer] sertraline (ZOLOFT) 100 mg tablet Take 1 tablet (100 mg total) by mouth in the morning. 01/28/25 Yes Not In System Ref Prov traZODone (DESYREL) 100 mg tablet TAKE 1 TABLET BY MOUTH EVERY DAY AT NIGHT Patient taking differently: Take 1 tablet (100 mg total) by mouth nightly. TAKE 1 TABLET BY MOUTH EVERY DAY AT NIGHT 11/28/24 Yes Pam Stinson APRN-ARCH[employer]ECT [employer] lidocaine (SALONPAS) 4 % Place 1 patch on the skin daily. 05/29/25 Giovanny Penny, DO Past Medical History: Patient has a past medical history of Anemia, Arthritis, Asthma, Cataract, Dental disease, Depression, Diabetes mellitus [place] Diabetes mellitus type 2, controlled ([facility] Encephalitis, Foot fracture, left, GERD (gastroesophageal reflux disease), Heart murmur, HLD (hyperlipidemia), Hypertension, Incontinence, Injury of back, Insulin dependent diabetes mellitus, Kidney failure, Lumbar spondylolysis, Murmur, Obesity, CHELSEA (obstructive sleep apnea), Peptic ulceration, Peripheral vascular disease, Shortness of breath, Stroke (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 [facility] INTERNAL MEDICINE [facility] [address] [place] [phone] Hospital Medicine History & Physical Patient: Cuca Dee Date of : 1945 Room: [facility] PCP: KAIDEN Hopkins Admission date: 07/02/2025 5:45 [...] Asthma, Cataract, Dental disease, Depression, Diabetes mellitus [place] Diabetes mellitus type 2, controlled ([facility] Encephalitis, Foot fracture, left, GERD (gastroesophageal reflux disease), Heart murmur, HLD (hyperlipidemia), Hypertension, Incontinence, Injury of back, Insulin dependent diabetes mellitus, Kidney failure, Lumbar spondylolysis, Murmur, Obesity, CHELSEA (obstructive sleep apnea), Peptic ulceration, Peripheral vascular disease, Shortness of breath, Stroke ([facility] (02/27/2024), TIA (transient ischemic attack), Upper respiratory [...] Daily sodium chloride, 3 mL, intravenous, [facility] mg, oral, Nightly Infusions: dextrose 5 [...] changes in the aorta no aneurysm Abdominal wall:TELEPHONE ANSWERING SERVICE OPERATOR shunt tube Bones:Severe changes in the right [...] No acute cardiopulmonary process. Finalized by Jason Brayn on 07/02/2025 11:[address] abdomen and [...] MD on 06/11/2025 2:15 AM I, Ryan Dominugez MD have personally reviewed the image(s) and [...] 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 mellitus ([facility]) Chronic diastolic congestive heart failure ([facility]) Weakness Iron deficiency anemia Adnexal mass ASSESSMENT [...] Discharge: Anticipated tomorrow when we get placement [facility] first choice KAIDEN Magana 07/03/2025 4:55 PM [...] mass patient is to follow up with chiropractor sole practitioner Oncology as outpatient documented in this encounter [facility] 07-02-2025 Plan of care note Problem: Pain Goal: Patient goal is pain score less than 4, able to rest, and participant in treatment plan as appropriate Description: INTERVENTIONS: 1. Encourage patient or legal customer service representative to report early pain and ask [...] per policy 9. Teach patient or legal customer service representative interventions for comforting Outcome: Progressing Note: [...] at the bedside 7. Instruct patient/ patient customer service representative about use of safety devices 8. Include patient/ patient customer service representative in decisions related to safety Outcome: [...] hygiene technique. 7. Identify and instruct patient/patient customer service representative in use of appropriate isolation precautions for identified infection/symptoms. 8. Provide and discuss with patient/patient customer service representative on educational MDRO sheet. 9. Encourage and monitor nutritional status daily and consult compressor battery pellets if indicated. 10. Implement neutropenic guidelines as needed. Outcome: Progressing Note: Evaluation of progress towards goal: Patient VS WNL, remains afebrile for shift. Continue to monitor. Problem: Knowledge Deficit Goal: Patient/patient customer service representative demonstrates understanding of disease process, treatment [...] Collaborate with ancillary departments 14. Include patient/patient customer service representative in decisions related to anxiety Outcome: [...] care 6. Collaborate with pastoral/spiritual care, social service agency director, mental health counselor as needed. 7. Instruct patient on diversional activities such as physical activity, distraction, and deep breathing exercises to assist with coping 8. Involve patient's customer service representative in care Outcome: Progressing Note: Evaluation [...] discharge planning process 5. Communicate referral to tobacco prevention health educator as appropriate 6. Communicate referral to compressor battery pellets as appropriate 7. Collaborate with case management/social service agency director for discharge needs Outcome: Progressing Note: Evaluation [...] supplement as ordered 13. Collaborate with clinical compressor battery pellets 14. Include patient/ patient's customer service representative in decisions related to nutrition Outcome: [...] skin protectant applied as needed, labs monitored. [facility] [employer] 06-24-2025 Telephone encounter Note Eventually we possibly [...] with a 1-1 assist to prevent falls. [facility] Work Phone: 06-24-2025 Miscellaneous [...] they can have outpatient therapy here in [facility] Therapy in [facility] advise documented in this encounter [facility] 06-21-2025 Telephone encounter Note Cuca Tejeda's daughter called, she wants to know if they can have outpatient therapy here in [facility] Therapy in [facility] advise [facility] 06-18-2025 Telephone encounter Note Cuca Tejeda's daughter called and said that Cuca is taking OTC Tylenol but its not helping, wanted to know if we can call in something stronger for her. Please advise [facility] 06-18-2025 Miscellaneous Notes Cuca Tejeda's daughter called and said that Cuca is taking OTC Tylenol but its not helping, wanted to know if we can call in something stronger for her. Please advise documented in this encounter [facility] 06-06-2025 History of Present [...] requiring urgent evaluation. Visit was preformed using [employer]-ship pilot dispatcher speech recognition. documented in this encounter [facility] 06-05-2025 History of Present illness Narrative IM PROGRESS NOTE Patient - Cuca Dee Age - 79 y[facility] 1945 [id number] ASSESS[facility] & PLAN 1. Hospital discharge follow-up [...] surgical history and problem list. Out of [facility] 9 days ago. Patient was found to [...] 05/12/2025 Auto Resulted Final POC Urine Specific Reynolds 05/12/2025 1.015 1.010, 1.015, 1.020, 1.025 Final [...] months (around 09/05/2025) for DM. EN Diaz [facility] Office: [phone] This note is dictated with the use of M*Modal. Please note that this dictation was completed with computer voice recognition software. Quite often unanticipated grammatical, syntax, homophones, and other interpretive errors are inadvertently transcribed by the computer software. Please disregard these errors. Please excuse any errors that have escaped final proofreading. KAIDEN Hopkins 06/05/25 1358 documented in this encounter [facility] 05-22-2025 Note SUBJECTIVE: Chief complaint: NPH with TELEPHONE ANSWERING SERVICE OPERATOR shunt. History of present illness: Follow-up for normal pressure hydrocephalus. She was recently hospitalized with hypoxia and altered mental status. Found to have pneumonia as well as a right hip fracture. Fracture did not require surgical intervention. Notes that this spring, she had MRSA bacteremia. [facility] Denies headaches, numbness, tingling, vision [...] disease) Coronary artery disease Depression Diabetes mellitus ([facility]) Dyslipidemia Femur fracture, right ([facility]) 04/2025 GERD (gastroesophageal reflux disease) Heart failure ([facility] Hypertension Ischemic stroke ([facility]) 02/2024 seen at [facility] NPH (normal pressure hydrocephalus) ([facility]) PVD (peripheral vascular disease) Sleep apnea Past [...] cefuroxime cholecalciferol (vitamin D3) clopidogrel Dexcom G6 [employer] mis Dexcom G6 Transmitter device Dexcom G7 Sensor device doxycycline ferrous sulfate FreeStyle Kartik 14 Day [facility] FreeStyle Kartik 14 Day Sensor kit furosemide gabapentin hydroCHLOROthiazide insulin aspart insulin lispro lancets [facility] Lantus Solostar U-100 Insulin insulin pen letrozole Levemir FlexPen insulin pen lisinopril magnesium oxide melatonin capsule metoprolol tartrate mirtazapine miscellaneous medical supply [facility] mupirocin nystatin ONETOUCH ULTRA BLUE TEST STRIP [facility] OneTouch Ultra Test strip oxyBUTYnin pantoprazole pen [...] tablet, TAKE 4 (more content not included)... [facility] 05-15-2025 Plan of care note Problem: Pain Goal: Patient goal is pain score less than 4, able to rest, and participant in treatment plan as appropriate Description: INTERVENTIONS: 1. Encourage patient or legal customer service representative to report early pain and ask [...] per policy 9. Teach patient or legal customer service representative interventions for comforting 05/15/2025 1511 by [...] at the bedside 7. Instruct patient/ patient customer service representative about use of safety devices 8. Include patient/ patient customer service representative in decisions related to safety 05/15/2025 [...] hygiene technique. 7. Identify and instruct patient/patient customer service representative in use of appropriate isolation precautions for identified infection/symptoms. 8. Provide and discuss with patient/patient customer service representative on educational MDRO sheet. 9. Encourage and monitor nutritional status daily and consult compressor battery pellets if indicated. 10. Implement neutropenic guidelines as needed. 05/15/2025 1511 by GABBY Camarena Outcome: Adequate for Discharge 05/15/2025 1349 by GABBY Camarena Outcome: Progressing Note: Evaluation of progress towards goal: Pt afebrile at this time, continue to monitor for signs infection Problem: Knowledge Deficit Goal: Patient/patient customer service representative demonstrates understanding of disease process, treatment plan, medications, and discharge instructions Description: INTERVENTIONS 1. Complete learning assessment and assess knowledge base 2. Provide teaching at level of understanding 3. Provide teaching via preferred learning method(s) 05/15/2025 151 by GABBY Camarena Outcome: Adequate [...] needed discharge transportation as appropriate 05/15/20251510 by GABBY Camarena Outcome: Adequate for [...] Handoff to next level of care provider (healthcare science specialist, PCP, home care). 5. Complete follow up [...] prescriptions have been filled. 05/15/2025 151 by Migue RN Outcome: Adequate [...] for home medication review. 05/15/2025 151 by Migue RN Outcome: Adequate [...] breathe; encourage incentive spirometer if indicated 05/15/2025 1511 by GABBY Camarena Outcome: Adequate [...] 9. Monitor lab/diagnostic results 05/15/2025 1511 by Migue RN Outcome: Adequate [...] Collaborate with ancillary departments 14. Include patient/patient customer service representative in decisions related to anxiety 05/15/2025 151 by GABBY Camarena Outcome: Adequate [...] care 6. Collaborate with pastoral/spiritual care, social service agency director, mental health counselor as needed. 7. Instruct patient on diversional activities such as physical activity, distraction, and deep breathing exercises to assist with coping 8. Involve patient's customer service representative in care 05/15/2025 1511 by GABBY [...] Score of =/> 25 or indicated by [facility] Assessment Goal: Patient should be free from fall Description: Interventions: 1. Story to environment 2. Hourly rounds addressing the [...] non-skid footwear 11. Teach patient and patient customer service representative to maintain environment for safety and [...] (cane, walker) within reach 19. Request patient customer service representative bring adaptive equipment/mobility aids from home or obtain and provide as needed 20. Consult pharmacy regarding effects of med's affecting mobility, cognition, and alternatives 21. Obtain physician order for PT if risk factors associated with mobility are present 22. Obtain physician order for OT as appropriate 23. Utilize diversional activities 24. Educate patient and patient customer service representative how to maintain a safe environment during visitation times (notify nurse prior to leaving bedside) 25. Consider appropriateness of medical or non-medical sonographer 26. Set up voiding schedule as appropriate [...] supplement as ordered 13. Collaborate with clinical compressor battery pellets 14. Include patient/ patient's customer service representative in decisions related to nutrition 05/15/2025 [...] to ensure perfusion and oxygenation and ventilation [facility] 05-15-2025 Miscellaneous Notes Problem: Pain Goal: Patient goal is pain score less than 4, able to rest, and participant in treatment plan as appropriate Description: INTERVENTIONS: 1. Encourage patient or legal customer service representative to report early pain and ask [...] per policy 9. Teach patient or legal customer service representative interventions for comforting 05/15/2025 151 by GABBY Camarena Outcome: Adequate [...] at the bedside 7. Instruct patient/ patient customer service representative about use of safety devices 8. Include patient/ patient customer service representative in decisions related to safety 05/15/2025 151 by GABBY Camarena Outcome: Adequate [...] hygiene technique. 7. Identify and instruct patient/patient customer service representative in use of appropriate isolation precautions for identified infection/symptoms. 8. Provide and discuss with patient/patient customer service representative on educational MDRO sheet. 9. Encourage and monitor nutritional status daily and consult compressor battery pellets if indicated. 10. Implement neutropenic guidelines as needed. 05/15/2025 151 by GABBY Camarena Outcome: Adequate for Discharge 05/15/2025 134 by GABBY Camarena Outcome: Progressing Note: Evaluation of progress towards goal: Pt afebrile at this time, continue to monitor for signs infection Problem: Knowledge Deficit Goal: Patient/patient customer service representative demonstrates understanding of disease process, treatment plan, medications, and discharge instructions Description: INTERVENTIONS 1. Complete learning assessment and assess knowledge base 2. Provide teaching at level of understanding 3. Provide teaching via preferred learning method(s) 05/15/2025 151 by GABBY Camarena Outcome: Adequate [...] Handoff to next level of care provider (healthcare science specialist, PCP, home care). 5. Complete follow up phone call within 72 hours. 05/15/2025 1511 by GABBY Camarena Outcome: Adequate [...] scheduled prior to discharge. 05/15/2025 151 by Migue RN Outcome: Adequate [...] RN Outcome: Adequate for Discharge 05/15/20251348 by S., RN Outcome: Progressing Note: Evaluation of progress [...] incentive spirometer if indicated 05/15/2025 151 by GABBY Camarena Outcome: Adequate [...] interdisciplinary team and initiate plans/interventions as needed 05/15/20251510 by GABBY Camarena Outcome: Adequate for [...] Collaborate with ancillary departments 14. Include patient/patient customer service representative in decisions related to anxiety 05/15/2025 [...] care 6. Collaborate with pastoral/spiritual care, social service agency director, mental health counselor as needed. 7. Instruct patient on diversional activities such as physical activity, distraction, and deep breathing exercises to assist with coping 8. Involve patient's customer service representative in care 05/15/2025 1511 by GABBY [...] be free from fall Description: Interventions: 1. Story to environment 2. Hourly rounds addressing the [...] non-skid footwear 11. Teach patient and patient customer service representative to maintain environment for safety and [...] (cane, walker) within reach 19. Request patient customer service representative bring adaptive equipment/mobility aids from home or obtain and provide as needed 20. Consult pharmacy regarding effects of med's affecting mobility, cognition, and alternatives 21. Obtain physician order for PT if risk factors associated with mobility are present 22. Obtain physician order for OT as appropriate 23. Utilize diversional activities 24. Educate patient and patient customer service representative how to maintain a safe environment during visitation times (notify nurse prior to leaving bedside) 25. Consider appropriateness of medical or non-medical sonographer 26. Set up voiding schedule as appropriate [...] supplement as ordered 13. Collaborate with clinical compressor battery pellets 14. Include patient/ patient's customer service representative in decisions related to nutrition 05/15/2025 [...] Prior Auth approved for admission to : [facility]/ [facility], [place], [place] (P# ; F# ) Approval # [id number] Valid for Dates: 05/15/2025 - 05/21/2025 Problem: Pain Goal: Patient goal is pain score less than 4, able to rest, and participant in treatment plan as appropriate Description: INTERVENTIONS: 1. Encourage patient or legal customer service representative to report early pain and ask [...] per policy 9. Teach patient or legal customer service representative interventions for comforting Outcome: Progressing Note: [...] at the bedside 7. Instruct patient/ patient customer service representative about use of safety devices 8. Include patient/ patient customer service representative in decisions related to safety Outcome: [...] hygiene technique. 7. Identify and instruct patient/patient customer service representative in use of appropriate isolation precautions for identified infection/symptoms. 8. Provide and discuss with patient/patient customer service representative on educational MDRO sheet. 9. Encourage and monitor nutritional status daily and consult compressor battery pellets if indicated. 10. Implement neutropenic guidelines as needed. Outcome: Progressing Note: Evaluation of progress towards goal: Pt afebrile at this time, continue to monitor for signs infection Problem: Knowledge Deficit Goal: Patient/patient customer service representative demonstrates understanding of disease process, treatment [...] Handoff to next level of care provider (healthcare science specialist, PCP, home care). 5. Complete follow up [...] Collaborate with ancillary departments 14. Include patient/patient customer service representative in decisions related to anxiety Outcome: [...] care 6. Collaborate with pastoral/spiritual care, social service agency director, mental health counselor as needed. 7. Instruct patient on diversional activities such as physical activity, distraction, and deep breathing exercises to assist with coping 8. Involve patient's customer service representative in care Outcome: Progressing Note: Evaluation of progress towards goal: Pt's on telemetry, strip read at beginning of shift and when changes occur and monitored throughout shift. Pt free of any dysrhythmias. VS and focused assessment done every 4 hours. Problem: Moderate - High Risk Fall Score Description: Patel Fall Score of =/> 25 or indicated by [facility] Assessment Goal: Patient should be free from fall Description: Interventions: 1. Story to environment 2. Hourly rounds addressing the [...] non-skid footwear 11. Teach patient and patient customer service representative to maintain environment for safety and [...] (cane, walker) within reach 19. Request patient customer service representative bring adaptive equipment/mobility aids from home or obtain and provide as needed 20. Consult pharmacy regarding effects of med's affecting mobility, cognition, and alternatives 21. Obtain physician order for PT if risk factors associated with mobility are present 22. Obtain physician order for OT as appropriate 23. Utilize diversional activities 24. Educate patient and patient customer service representative how to maintain a safe environment during visitation times (notify nurse prior to leaving bedside) 25. Consider appropriateness of medical or non-medical sonographer 26. Set up voiding schedule as appropriate [...] supplement as ordered 13. Collaborate with clinical compressor battery pellets 14. Include patient/ patient's customer service representative in decisions related to nutrition Outcome: [...] Cognition, Fall risk, ADL status, Endurance level Memory Care Program Director Support for-: Mobility Deficits, ADL Deficits, Cognitive [...] gait belt, IV/midline Weight Bearing Status: WBAT Telemetry/Turkey Farmer: Yes Oxygen Used: room air Other: fall risk Past Medical History: Diagnosis Date Anemia Arthritis Asthma very mild, no inhaler use Cataract Dental disease Depression Diabetes mellitus [place] Diabetes mellitus type 2, controlled [place] Encephalitis Foot fracture, left GERD (gastroesophageal reflux disease) Heart murmur HLD (hyperlipidemia) Hypertension Incontinence Injury of back Insulin dependent diabetes mellitus Kidney failure STAGE 4 Lumbar spondylolysis Murmur Obesity CHELSEA (obstructive sleep apnea) no machine Peptic ulceration Peripheral vascular disease Shortness of breath Stroke [place] 02/27/2024 TIA (transient ischemic attack) Upper respiratory infection UTI (urinary tract infection) Visual impairment Wears dentures Past Surgical History: Procedure Laterality Date BREAST BIOPSY Right 03/01/2023 ULT BIOPSY CATARACT EXTRACTION SECTION SECTION 03/14/1974 EGD N/A 10/17/2019 Performed by Sarai Bell DO at [facility] H-PERCUTANEOUS CORONARY INTERVENTION HYSTEROSCOPY DILATION CURETTAGE MYOSURE N/A 01/29/2021 Performed by Jv Briones MD at [facility] INJECTION BLOCK EPIDURAL CAUDAL STEROID N/A 08/14/2022 Performed by Arnulfo Gonzalez MD at [facility] INJECTION BLOCK EPIDURAL CAUDAL STEROID N/A 06/06/2021 Performed by Arnulfo Gonzalez MD at [facility] INJECTION BLOCK EPIDURAL CAUDAL STEROID N/A 04/25/2021 Performed by Arnulfo Gonzalez MD at [facility] INJECTION CAUDAL EPIDURAL WITH CATHETER, STEROID N/A 05/03/2020 Performed by Arnulfo Gonzalez MD at [facility] INJECTION CAUDAL EPIDURAL WITH CATHETER, STEROID N/A 11/24/2019 Performed by Arnulfo Gonzalez MD at [facility] INJECTION CAUDAL EPIDURAL WITH CATHETER, STEROID N/A 04/21/2019 Performed by Arnulfo Gonzalez MD at [facility] INJECTION MEDIAL BRANCH NERVE BLOCK Bilateral L 4/5, 5/1 Bilateral 08/18/2019 Performed by Arnulfo Gonzalze MD at [facility] MEDIAL BRANCH NERVE BLOCK Bilateral L 4/5, 5/1 Bilateral 06/23/2019 Performed by Arnulfo Gonzalez MD at [facility] INJECTION STEROID EPI 1 WITH SEDATION Right L 4, 5 NR Right 03/17/2019 Performed by Arnulfo Gonzalez MD at [facility] INJECTION STEROID EPI 1 WITH SEDATION: right L45 nroot Right 08/15/2018 Performed by Arnulfo Gonzalez MD at [facility] LEFT L4, AND 5 NERVE ROOT INJECTION 2 OF 2 Left 07/22/2018 Performed by Arnulfo Gonzalez MD at [facility] LEFT L4, AND L5 NERVE ROOT 1 OF 2 Left 07/04/2018 Performed by Arnulfo Gonzalez MD at [facility] SHUNT INSERTION TONSILLECTOMY AGE 4 Transcutaneous aortic valve replacement/Transfemoral/Kwan N/A 08/17/2023 Performed by Chava Norris MD at [facility] Valvuloplasty aortic N/A 06/03/2023 Performed by Chava Norris MD at [facility] Subjective Physical Therapy [...] Principal Problem: Acute respiratory failure with hypoxia ([facility] Active Problems: 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 mellitus ([facility]) Mixed diabetic hyperlipidemia associated with type 2 diabetes mellitus ([facility]) Obstructive sleep apnea syndrome Essential (primary) hypertension Acute on chronic diastolic congestive heart failure ([facility]) Stage 3b chronic kidney disease [place]) Type 2 diabetes mellitus with diabetic chronic kidney disease ([facility] Iron deficiency anemia Hypomagnesemia Closed fracture of right hip ([facility]) Nondisplaced fracture of lesser trochanter of right femur, initial encounter for closed fracture ([facility] Occupational Therapy Evaluation Discharge Recommendations for Safe Patient Transition Discharge Recommendations: Post acute - moderate Post Acute Moderate Rehab Needs: Recommend moderate intensity rehab, Subacute or chronic functional impairment, Tolerate 1-2 hrs of therapy 3-5 days/wk Current Impairments Informing Therapy Recommendation: Ambulation status/safety, Cognition, Fall risk, ADL status, Endurance level Memory Care Program Director Support for-: Mobility Deficits, ADL Deficits, Cognitive [...] 10/17/2019 Performed by Sarai Bell DO at [facility] H-PERCUTANEOUS CORONARY INTERVENTION HYSTEROSCOPY DILATION CURETTAGE MYOSURE N/A 01/29/2021 Performed by Jv Briones MD at [facility] INJECTION BLOCK EPIDURAL CAUDAL STEROID N/A 08/14/2022 Performed by Arnulfo Gonzalez MD at [facility] INJECTION BLOCK EPIDURAL CAUDAL STEROID N/A 06/06/2021 Performed by Arnulfo Gonzalez MD at [facility] INJECTION BLOCK EPIDURAL CAUDAL STEROID N/A 04/25/2021 Performed by Arnulfo Gonzalez MD at [facility] INJECTION CAUDAL EPIDURAL WITH CATHETER, STEROID N/A 05/03/2020 Performed by Arnulfo Gonzalez MD at [facility] INJECTION CAUDAL EPIDURAL WITH CATHETER, STEROID N/A 11/24/2019 Performed by Arnulfo Gonzalez MD at [facility] INJECTION CAUDAL EPIDURAL WITH CATHETER, STEROID N/A 04/21/2019 Performed by Arnulfo Gonzalez MD at [facility] MEDIAL BRANCH NERVE BLOCK Bilateral L 4/5, 5/1 Bilateral 08/18/2019 Performed by Arnulfo Gonzalez MD at [facility] MEDIAL BRANCH NERVE BLOCK Bilateral L 4/5, 5/1 Bilateral 06/23/2019 Performed by Arnulfo Gonzalez MD at [facility] INJECTION STEROID EPI 1 WITH SEDATION Right L 4, 5 NR Right 03/17/2019 Performed by Arnulfo Gonzalez MD at [facility] INJECTION STEROID EPI 1 WITH SEDATION: right L45 nroot Right 08/15/2018 Performed by Arnulfo Gonzalez MD at [facility] LEFT L4, AND 5 NERVE ROOT INJECTION 2 OF 2 Left 07/22/2018 Performed by Arnulfo Gonzalez MD at [facility] LEFT L4, AND L5 NERVE ROOT 1 OF 2 Left 07/04/2018 Performed by Arnulfo Gonzalez MD at [facility] SHUNT INSERTION TONSILLECTOMY AGE 4 Transcutaneous aortic valve replacement/Transfemoral/Kwan N/A 08/17/2023 Performed by Chava Norris MD at [facility] Valvuloplasty aortic N/A 06/03/2023 Performed by Chava Norris MD at [facility] Past Medical History: Diagnosis Date Anemia Arthritis Asthma very mild, no inhaler use Cataract Dental disease Depression Diabetes mellitus [place]) Diabetes mellitus type 2, controlled ([facility]) Encephalitis Foot fracture, left GERD (gastroesophageal reflux disease) Heart murmur HLD (hyperlipidemia) Hypertension Incontinence Injury of back Insulin dependent diabetes mellitus Kidney failure STAGE 4 Lumbar spondylolysis Murmur Obesity CHELSEA (obstructive sleep apnea) no machine Peptic ulceration Peripheral vascular disease Shortness of breath Stroke [place] 02/27/2024 TIA (transient ischemic attack) Upper respiratory [...] gait belt, IV/midline Weight Bearing Status: WBAT Telemetry/Turkey Farmer: Yes Oxygen Used: room air Other: fall [...] Deficit: R sock (due to pain) Other: newspaper writer introduced slef role and goals, newspaper writer zulma with patient. patient agreeable to eval. completes sponge bath while seated on edge of bed, changes gown once seated in chair. brekfast tray arrives and session terminated Home Management - IADL Other: newspaper writer introduced slef role and goals, newspaper writer zulma with patient. patient agreeable to [...] Principal Problem: Acute respiratory failure with hypoxia ([facility]) Active Problems: 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 mellitus [place] Mixed diabetic hyperlipidemia associated with type 2 diabetes mellitus ([facility] Obstructive sleep apnea syndrome Essential (primary) hypertension Acute on chronic diastolic congestive heart failure ([facility] Stage 3b chronic kidney disease ([facility]) Type 2 diabetes mellitus with diabetic chronic kidney disease ([facility] Iron deficiency anemia Hypomagnesemia Closed fracture of right hip ([facility] Nondisplaced fracture of lesser trochanter of right femur, initial encounter for closed fracture ([facility] DISCHARGE PLANNING NOTE Cuca Dee PT/OT reminded via secure chat that we need PT/OT notes to submit for SNF insurance authorization. Patient Discharge Plan: Nursing Home Care at [facility] (accepted) and pending insurance authorization. Can't submit until we have PT/OT evaluation and recommendation. Patient is WBAT. Plan of Care: [facility] (SNF) [phone] Fax CRF at Discharge Follow up appointments: Orthopedics would like to see patient in two weeks. This was added to AVS for SNF to schedule for patient. - Purvi Cardenas RN 05/15/25 8:35 AM PT and OT notes completed. Tasked pre-certification team to begin insurance authorization for patient to go to [place]. Patient Discharge Plan: Nursing Home Care at [facility] (accepted) and pending insurance authorization. Plan of Care: [facility] (SNF) [phone] Fax CRF at Discharge Follow up appointments: Orthopedics would like to see patient in two weeks. This was added to AVS for SNF to schedule for patient. - Purvi Cardenas RN 05/15/25 12:58 PM Insurance authorization received. Provider placed discharge order. Preadmission Screening & Resident Review (PASSR) PASSR completed via the [employer] Electronic Notification System) ODM 7000 (short form) completed and submitted? yes Is a Level II Evaluation required? no SNF notified on CarePort of PASSR completion. yes CRF sent via CarePort yes Patient Discharge Plan: Nursing Home Care at [facility] (accepted) and insurance authorization received. Plan of Care: [facility] (SNF) [phone] Fax CRF at Discharge Follow up appointments: Orthopedics would like to see patient in two weeks. This was added to AVS for SNF to schedule for patient. - Puvri Cardenas RN 05/15/25 2:51 PM Problem: Safety [...] at the bedside 7. Instruct patient/ patient customer service representative about use of safety devices 8. Include patient/ patient customer service representative in decisions related to safety Outcome: [...] Planning Assessment Cuca Augusto Dee Admit Status: Inpatient Meet: Yes Readmission Risk: 31%. Date of Admission: 05/13/2025 GMLOS: 4.6 days Target Discharge Date: 05/17/2025 Discharge Planning Assessment completed at bedside and via phone with patient's daughter, Ismael. Cloth Examiner Machine identified self and role to the patient. [...] unit as she had a foul odor. Cloth Examiner Machine spoke with daughter, Ismael. She is agreeable [...] were just approved for an aid through [employer] services. However, there is no aid availability to send into the home yet. Cloth Examiner Machine discusses with Ismael that we will haev [...] Services Nurse visit Community Agencies Currently Utilized [employer] [[employer] sample case porter and they plan to send an aid when they have availability.] Community Referrals / Resources Provided Denies needs Who is the existing DME Provider? [employer] ([employer] ) Established DME Comments Walker, shower chair, [...] Requested Patient expects to be discharged to: [facility] Does the patient wish to have family/friend/caregiver involved in their discharge planning? Yes Does the patient plan to return home to a community setting? No, patient to discharge to facility-based provider. See Discharge Disposition Discharge Disposition SNF Who is the existing DME Provider? [employer] ([employer]) ) Does the patient need discharge transportation arranged? Yes Transportation Arranged Ambulance Patient choice offered Patient declined List Provided Patient declined Patient Declined Other (must state reason) [Patient states she only wants to go to [facility]] DC Planning Complete Discharge Milestones Yes [facility]acy: [facility] PCP: Pam Stinson Consulting Providers this admission: Orthopedics for fracture Patient will make her own follow up appointments: no To be made by Nursing Home Facility Patient Goals: Goals per daughter and patient to SNF (pt-stated) Evaluation of progress towards goal: Patient and daughter agree she will need skilled care as a result of the fracture she has. PT Recommends: Pending evaluation OT Recommends: Pending evaluation Patient denies need for [facility] facility list. She states she will not ever go to [facility] again. She will only go to [facility]. Tasked transition team to send referral. Plan to prevent readmission: To [facility] facility. As above lengthy discission with patient and daughter regarding the need for patient to be clean at home and take her showers and change her clothes. Patient/Family do not endorse any questions at this time. Patient Discharge Plan: Nursing Home Care at [facility] (accepted) and pending insurance authorization. Can't submit until we have PT/OT evaluation and recommendation. Patient is WBAT. Plan of Care: [facility] (SNF) [phone] Fax CRF at Discharge Follow up appointments: Orthopedics would like to see patient in two weeks. This was added to AVS for SNF to schedule for patient. Purvi Cardenas RN 05/14/25 1:25 PM DISCHARGE PLANNING NOTE Referral sent to. [facility]/ [place], [place] (P# ; F# ) Physical Therapy [...] Description: INTERVENTIONS: 1. Encourage patient or legal customer service representative to report early pain and ask [...] per policy 9. Teach patient or legal customer service representative interventions for comforting Outcome: Progressing Note: [...] at the bedside 7. Instruct patient/ patient customer service representative about use of safety devices 8. Include patient/ patient customer service representative in decisions related to safety Outcome: [...] hygiene technique. 7. Identify and instruct patient/patient customer service representative in use of appropriate isolation precautions for identified infection/symptoms. 8. Provide and discuss with patient/patient customer service representative on educational MDRO sheet. 9. Encourage and monitor nutritional status daily and consult compressor battery pellets if indicated. 10. Implement neutropenic guidelines as needed. Outcome: Progressing Note: Evaluation of progress towards goal: Pt afebrile at this time, continue to monitor for signs infection Problem: Knowledge Deficit Goal: Patient/patient customer service representative demonstrates understanding of disease process, treatment [...] Handoff to next level of care provider (healthcare science specialist, PCP, home care). 5. Complete follow up [...] Collaborate with ancillary departments 14. Include patient/patient customer service representative in decisions related to anxiety Outcome: [...] care 6. Collaborate with pastoral/spiritual care, social service agency director, mental health counselor as needed. 7. Instruct patient on diversional activities such as physical activity, distraction, and deep breathing exercises to assist with coping 8. Involve patient's customer service representative in care Outcome: Progressing Note: Evaluation [...] be free from fall Description: Interventions: 1. Story to environment 2. Hourly rounds addressing the [...] non-skid footwear 11. Teach patient and patient customer service representative to maintain environment for safety and [...] (cane, walker) within reach 19. Request patient customer service representative bring adaptive equipment/mobility aids from home or obtain and provide as needed 20. Consult pharmacy regarding effects of med's affecting mobility, cognition, and alternatives 21. Obtain physician order for PT if risk factors associated with mobility are present 22. Obtain physician order for OT as appropriate 23. Utilize diversional activities 24. Educate patient and patient customer service representative how to maintain a safe environment during visitation times (notify nurse prior to leaving bedside) 25. Consider appropriateness of medical or non-medical sonographer 26. Set up voiding schedule as appropriate [...] supplement as ordered 13. Collaborate with clinical compressor battery pellets 14. Include patient/ patient's customer service representative in decisions related to nutrition Outcome: [...] Description: INTERVENTIONS: 1. Encourage patient or legal customer service representative to report early pain and ask [...] per policy 9. Teach patient or legal customer service representative interventions for comforting Outcome: Progressing Note: [...] at the bedside 7. Instruct patient/ patient customer service representative about use of safety devices 8. Include patient/ patient customer service representative in decisions related to safety Outcome: [...] hygiene technique. 7. Identify and instruct patient/patient customer service representative in use of appropriate isolation precautions for identified infection/symptoms. 8. Provide and discuss with patient/patient customer service representative on educational MDRO sheet. 9. Encourage and monitor nutritional status daily and consult compressor battery pellets if indicated. 10. Implement neutropenic guidelines as needed. Outcome: Progressing Note: Evaluation of progress towards goal: Pt receiving IV ATB. Problem: Pain Goal: Patient goal is pain score less than 4, able to rest, and participant in treatment plan as appropriate Description: INTERVENTIONS: 1. Encourage patient or legal customer service representative to report early pain and ask [...] per policy 9. Teach patient or legal customer service representative interventions for comforting Outcome: Progressing Note: [...] at the bedside 7. Instruct patient/ patient customer service representative about use of safety devices 8. Include patient/ patient customer service representative in decisions related to safety Outcome: [...] hygiene technique. 7. Identify and instruct patient/patient customer service representative in use of appropriate isolation precautions for identified infection/symptoms. 8. Provide and discuss with patient/patient customer service representative on educational MDRO sheet. 9. Encourage and monitor nutritional status daily and consult compressor battery pellets if indicated. 10. Implement neutropenic guidelines as needed. Outcome: Progressing Note: Evaluation of progress towards goal: Isolation precautions followed per protocol. Equipment cleaned between patients. Handwashing protocol followed. documented in this encounter [facility] 05-15-2025 Hospital course Narrative Images from the original note were not included. [facility] INTERNAL MEDICINE [facility] - [address] [id number] Hospital Medicine Discharge Summary Patient: Cuca Dee Date of : 1945 Room: Encounter date: 05/15/25 DATE OF ADMISSION: 05/13/2025 DATE OF DISCHARGE:05/15/2025 DISCHARGE DIAGNOSES Principal Problem: Acute respiratory failure with hypoxia ([facility] Active Problems: 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 mellitus ([facility]) Mixed diabetic hyperlipidemia associated with type 2 diabetes mellitus ([facility]) Obstructive sleep apnea syndrome Essential (primary) hypertension Acute on chronic diastolic congestive heart failure ([facility]) Stage 3b chronic kidney disease ([facility]) Type 2 diabetes mellitus with diabetic chronic kidney disease ([facility]) Iron deficiency anemia Hypomagnesemia Closed fracture of right hip ([facility]) Nondisplaced fracture of lesser trochanter of right femur, initial encounter for closed fracture [place] CONSULTANTS None PCP: Pam Stinson, [employer] None HOSPITAL COURSE SUMMARY Per HPI: [...] admission. Patient he will be discharged to [facility] facility with 5 more days of doxycycline. [...] PT OT did see patient and recommended [facility] facility. Patient be discharged to [facility] facility today. Clinical concern for sepsis, no-sepsis [...] Extra Tubes. Procedure Abnormality Status --------- ------ [facility][[id number]] Final result Please view results for these tests on the individual orders. [facility] Collection Time: 05/13/25 7:54 PM Result [...] Extra Tubes. Procedure Abnormality Status --------- ------ [facility][[id number]] Final result Please view results for these [...] valve replacement. The distal portion of a TELEPHONE ANSWERING SERVICE OPERATOR shunt is seen within the abdomen. Again [...] ovarian. There is partial visualization of a TELEPHONE ANSWERING SERVICE OPERATOR shunt and changes of aortic valve replacement. [...] Adult nutrition supplements Adult diet Follow up: Pam Stinson APRN-BARTOLO within 7-14 days. Labs/Imaging/Pathology: Metabolic panel in [...] minutes were spent on discharging this patient. Vj KAIDEN Valencia, 05/15/2025 5:24 PM [facility] Internal Medicine 7AM-7PM & 7PM-7AM: EpicChat [...] have escaped final proofreading. KAIDEN Hopkins 05/15/25 1715 Physician Attestation I, Felix Hallman MD, personally [...] in stable condition. documented in this encounter [facility] Q[facility] 05-15-2025 Progress note Formatting of t his note might be different from the original. DISCHARGE PLANNING NOTE Prior Auth approved for admission to : [facility]/ [facility], [place], [place] (P# ; F# ) Approval # [id number] Valid for Dates: 05/15/2025 - 05/21/2025 [facility] 05-15-2025 Plan of care note Problem: Pain Goal: Patient goal is pain score less than 4, able to rest, and participant in treatment plan as appropriate Description: INTERVENTIONS: 1. Encourage patient or legal customer service representative to report early pain and ask [...] per policy 9. Teach patient or legal customer service representative interventions for comforting Outcome: Progressing Note: [...] at the bedside 7. Instruct patient/ patient customer service representative about use of safety devices 8. Include patient/ patient customer service representative in decisions related to safety Outcome: [...] hygiene technique. 7. Identify and instruct patient/patient customer service representative in use of appropriate isolation precautions for identified infection/symptoms. 8. Provide and discuss with patient/patient customer service representative on educational MDRO sheet. 9. Encourage and monitor nutritional status daily and consult compressor battery pellets if indicated. 10. Implement neutropenic guidelines as needed. Outcome: Progressing Note: Evaluation of progress towards goal: Pt afebrile at this time, continue to monitor for signs infection Problem: Knowledge Deficit Goal: Patient/patient customer service representative demonstrates understanding of disease process, treatment [...] Handoff to next level of care provider (healthcare science specialist, PCP, home care). 5. Complete follow up [...] Collaborate with ancillary departments 14. Include patient/patient customer service representative in decisions related to anxiety Outcome: [...] care 6. Collaborate with pastoral/spiritual care, social service agency director, mental health counselor as needed. 7. Instruct patient on diversional activities such as physical activity, distraction, and deep breathing exercises to assist with coping 8. Involve patient's customer service representative in care Outcome: Progressing Note: Evaluation [...] be free from fall Description: Interventions: 1. Story to environment 2. Hourly rounds addressing the [...] non-skid footwear 11. Teach patient and patient customer service representative to maintain environment for safety and [...] (cane, walker) within reach 19. Request patient customer service representative bring adaptive equipment/mobility aids from home or obtain and provide as needed 20. Consult pharmacy regarding effects of med's affecting mobility, cognition, and alternatives 21. Obtain physician order for PT if risk factors associated with mobility are present 22. Obtain physician order for OT as appropriate 23. Utilize diversional activities 24. Educate patient and patient customer service representative how to maintain a safe environment during visitation times (notify nurse prior to leaving bedside) 25. Consider appropriateness of medical or non-medical sonographer 26. Set up voiding schedule as appropriate [...] supplement as ordered 13. Collaborate with clinical compressor battery pellets 14. Include patient/ patient's customer service representative in decisions related to nutrition Outcome: [...] to ensure perfusion and oxygenation and ventilation [email or web address] [facility] 05-15-2025 Progress note Formatting of [...] Cognition, Fall risk, ADL status, Endurance level Memory Care Program Director Support for-: Mobility Deficits, ADL Deficits, Cognitive [...] LE weakness, acute respiratory and hypoxia with viki Navarro Lesser trochanter femur fracture with WBAT. PT [...] gait belt, IV/midline Weight Bearing Status: WBAT Telemetry/Turkey Farmer: Yes Oxygen Used: room air Other: fall risk Past Medical History: Diagnosis Date Anemia Arthritis Asthma very mild, no inhaler use Cataract Dental disease Depression Diabetes mellitus ([facility] Diabetes mellitus type 2, controlled ([facility]) Encephalitis Foot fracture, left GERD (gastroesophageal reflux disease) Heart murmur HLD (hyperlipidemia) Hypertension Incontinence Injury of back Insulin dependent diabetes mellitus Kidney failure STAGE 4 Lumbar spondylolysis Murmur Obesity CHELSEA (obstructive sleep apnea) no machine Peptic ulceration Peripheral vascular disease Shortness of breath Stroke ([facility] 02/27/2024 TIA (transient ischemic attack) Upper respiratory infection UTI (urinary tract infection) Visual impairment Wears dentures Past Surgical History: Procedure Laterality Date BREAST BIOPSY Right 03/01/2023 ULT BIOPSY CATARACT EXTRACTION SECTION SECTION 03/14/1974 EGD N/A 10/17/2019 Performed by Sarai Bell DO at [facility] H-PERCUTANEOUS CORONARY INTERVENTION HYSTEROSCOPY DILATION CURETTAGE MYOSURE N/A 01/29/2021 Performed by Jv Briones MD at [facility] INJECTION BLOCK EPIDURAL CAUDAL STEROID N/A 08/14/2022 Performed by Arnulfo Gonzalez MD at [facility] INJECTION BLOCK EPIDURAL CAUDAL STEROID N/A 06/06/2021 Performed by Arnulfo Gonzalez MD at [facility] INJECTION BLOCK EPIDURAL CAUDAL STEROID N/A 04/25/2021 Performed by Arnulfo Gonzalez MD at [facility] INJECTION CAUDAL EPIDURAL WITH CATHETER, STEROID N/A 05/03/2020 Performed by Arnulfo Gonzalez MD at [facility] INJECTION CAUDAL EPIDURAL WITH CATHETER, STEROID N/A 11/24/2019 Performed by Arnulfo Gonzalez MD at [facility] INJECTION CAUDAL EPIDURAL WITH CATHETER, STEROID N/A 04/21/2019 Performed by Arnulfo Gonzalez MD at [facility] INJECTION MEDIAL BRANCH NERVE BLOCK Bilateral L 4/5, 5/1 Bilateral 08/18/2019 Performed by Arnulfo Gonzalez MD at [facility] MEDIAL BRANCH NERVE BLOCK Bilateral L 4/5, 5/1 Bilateral 06/23/2019 Performed by Arnulfo Gonzalez MD at [facility] INJECTION STEROID EPI 1 WITH SEDATION Right L 4, 5 NR Right 03/17/2019 Performed by Arnulfo Gonzalez MD at [facility] INJECTION STEROID EPI 1 WITH SEDATION: right L45 nroot Right 08/15/2018 Performed by Arnulfo Gonzalez MD at [facility] LEFT L4, AND 5 NERVE ROOT INJECTION 2 OF 2 Left 07/22/2018 Performed by Arnulfo Gonzalez MD at [facility] LEFT L4, AND L5 NERVE ROOT 1 OF 2 Left 07/04/2018 Performed by Arnulfo Gonzalez MD at [facility] SHUNT INSERTION TONSILLECTOMY AGE 4 Transcutaneous aortic valve replacement/Transfemoral/Kwan N/A 08/17/2023 Performed by Chava Norris MD at [facility] Valvuloplasty aortic N/A 06/03/2023 Performed by Chava Norris MD at [facility] Subjective Physical Therapy [...] Acute on chronic diastolic congestive heart failure ([facility] Stage 3b chronic kidney disease ([facility]) Type 2 diabetes mellitus with diabetic chronic kidney disease ([facility] Iron deficiency anemia Hypomagnesemia Closed fracture of right hip ([facility]) Nondisplaced fracture of lesser trochanter of right femur, initial encounter for closed fracture ([facility] 05-15-2025 Progress note Formatting of [...] Cognition, Fall risk, ADL status, Endurance level Memory Care Program Director Support for-: Mobility Deficits, ADL Deficits, Cognitive [...] little Scoring Daily Activity Raw Score: 13 [facility] G Code Modifier: CL Therapy Plan/HPI/occupational profile [...] 10/17/2019 Performed by Sarai Bell DO at [facility] H-PERCUTANEOUS CORONARY INTERVENTION HYSTEROSCOPY DILATION CURETTAGE MYOSURE N/A 01/29/2021 Performed by Jv Briones MD at [facility] INJECTION BLOCK EPIDURAL CAUDAL STEROID N/A 08/14/2022 Performed by Arnulfo Gonzalez MD at [facility] INJECTION BLOCK EPIDURAL CAUDAL STEROID N/A 06/06/2021 Performed by Arnulfo Gonzalez MD at [facility] INJECTION BLOCK EPIDURAL CAUDAL STEROID N/A 04/25/2021 Performed by Arnulfo Gonzalez MD at [facility] INJECTION CAUDAL EPIDURAL WITH CATHETER, STEROID N/A 05/03/2020 Performed by Arnulfo Gonzalez MD at [facility] INJECTION CAUDAL EPIDURAL WITH CATHETER, STEROID N/A 11/24/2019 Performed by Arnulfo Gonzalez MD at [facility] INJECTION CAUDAL EPIDURAL WITH CATHETER, STEROID N/A 04/21/2019 Performed by Arnulfo Gonzalez MD at [facility] MEDIAL BRANCH NERVE BLOCK Bilateral L 4/5, 5/1 Bilateral 08/18/2019 Performed by Arnulfo Gonzalez MD at [facility] INJECTION MEDIAL BRANCH NERVE BLOCK Bilateral L 4/5, 5/1 Bilateral 06/23/2019 Performed by Arnulfo Gonzalez MD at [facility] STEROID EPI 1 WITH SEDATION Right L 4, 5 NR Right 03/17/2019 Performed by Arnulfo Gonzalez MD at [facility] STEROID EPI 1 WITH SEDATION: right L45 nroot Right 08/15/2018 Performed by Arnulfo Gonzalez MD at [facility] LEFT L4, AND 5 NERVE ROOT INJECTION 2 OF 2 Left 07/22/2018 Performed by Arnulfo Gonzalez MD at [facility] LEFT L4, AND L5 NERVE ROOT 1 OF 2 Left 07/04/2018 Performed by Arnulfo Gonzalez MD at [facility] SHUNT INSERTION TONSILLECTOMY AGE 4 Transcutaneous aortic valve replacement/Transfemoral/Kwan N/A 08/17/2023 Performed by Chava Norris MD at [facility] Valvuloplasty aortic N/A 06/03/2023 Performed by Chava Norris MD at [facility] Past Medical History: Diagnosis Date Anemia Arthritis Asthma very mild, no inhaler use Cataract Dental disease Depression Diabetes mellitus [place] Diabetes mellitus type 2, controlled ([facility]) Encephalitis Foot fracture, left GERD (gastroesophageal reflux disease) Heart murmur HLD (hyperlipidemia) Hypertension Incontinence Injury of back Insulin dependent diabetes mellitus Kidney failure STAGE 4 Lumbar spondylolysis Murmur Obesity CHELSEA (obstructive sleep apnea) no machine Peptic ulceration Peripheral vascular disease Shortness of breath Stroke [place] 02/27/2024 TIA (transient ischemic attack) Upper respiratory [...] gait belt, IV/midline Weight Bearing Status: WBAT Telemetry/Turkey Farmer: Yes Oxygen Used: room air Other: fall [...] in the community- reports she has notbeenoutof thehometownforalongtime) Homemaking Assistance: Needs assistance (yair and grandallison completes all IADLS, groceries are being delivered) [...] Deficit: R sock (due to pain) Other: newspaper writer introduced slef role and goals, newspaper writer zulma with patient. patient agreeable to eval. completes sponge bath while seated on edge of bed, changes gown once seated in chair. brekfast tray arrives and session terminated Home Management - IADL Other: newspaper writer introduced slef role and goals, newspaper writer zulma with patient. patient agreeable to [...] Principal Problem: Acute respiratory failure with hypoxia ([facility]) Active Problems: 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 mellitus ([facility]) Mixed diabetic hyperlipidemia associated with type 2 diabetes mellitus ([facility]) Obstructive sleep apnea syndrome Essential (primary) hypertension Acute on chronic diastolic congestive heart failure ([facility]) Stage 3b chronic kidney disease ([facility] Type 2 diabetes mellitus with diabetic chronic kidney disease ([facility]) Iron deficiency anemia Hypomagnesemia Closed fracture of right hip ([facility]) Nondisplaced fracture of lesser trochanter of right femur, initial encounter for closed fracture (CMS-HCC) [employer] Work Phone: 05-15-2025 Progress note Formatting of t his note might be different from the original. DISCHARGE PLANNING NOTE Cuca Dee PT/OT reminded via secure chat that we need PT/OT notes to submit for SNF insurance authorization. Patient Discharge Plan: Nursing Home Care at [facility] (accepted) and pending insurance authorization. Can't submit until we have PT/OT evaluation and recommendation. Patient is WBAT. Plan of Care: [facility] (SNF) [phone] Fax CRF at Discharge Follow up appointments: Orthopedics would like to see patient in two weeks. This was added to AVS for SNF to schedule for patient. - Purvi Cardenas RN 05/15/25 8:35 AM PT and OT notes completed. Tasked pre-certification team to begin insurance authorization for patient to go to [facility]. Patient Discharge Plan: Nursing Home Care at [facility] (accepted) and pending insurance authorization. Plan of Care: [facility] ([facility]) [phone] Fax CRF at Discharge Follow up appointments: Orthopedics would like to see patient in two weeks. This was added to AVS for SNF to schedule for patient. - Purvi Cardenas RN 05/15/25 12:58 PM Insurance authorization received. Provider placed discharge order. Preadmission Screening & Resident Review (PASSR) PASSR completed via the [employer] ([employer] Electronic Notification System) ODM 0990 (short form) completed and submitted? yes Is a Level II Evaluation required? no SNF notified on [facility] of PASSR completion. yes CRF sent via [facility] yes Patient Discharge Plan: Nursing Home Care at [facility] (accepted) and insurance authorization received. Plan of Care: [facility] ([facility]) [phone] Fax CRF at Discharge Follow up appointments: Orthopedics would like to see patient in two weeks. This was added to AVS for SNF to schedule for patient. - Purvi Cardenas RN 05/15/25 2:51 PM [facility] 05-14-2025 Plan of care note Problem: [...] at the bedside 7. Instruct patient/ patient customer service representative about use of safety devices 8. Include patient/ patient customer service representative in decisions related to safety Outcome: [...] breath sounds diminished, not in respiratory distress. [facility] 05-14-2025 Hospital Discharge instructions Migue Douglas RN - 05/14/2025 2:00 PM EDT May 23, at 1 pm. NOM's orthopedic follow up. documented in this encounter [facility] 05-14-2025 Progress note Formatting of t [...] Care Services with any new skin concerns. [facility] 05-14-2025 Progress note Formatting of t his note might be different from the original. Dr. Joiner notified of this patient Patient has not established care with Dr. Joiner. Dr. Diane rutledge would like us to continue medical care of this patient during hospital stay [facility] 05-14-2025 Progress note Formatting of t his note is different from the original. Occupational Therapy OT Type of Visit: Medical deferral Reason For Medical Deferral: Provider input needed OT defers eval due to nondisplaced fracture of lesser trochanter of R femur, await ortho for WB status to ensure safe completion of ADL tasks. OT to continue to follow. [facility] 05-14-2025 Progress note Formatting of t his note is different from the original. Images from the original note were not included. Discharge Planning Assessment Cuca Dee Admit Status: Inpatient Meet: Yes Readmission Risk: 31%. Date of Admission: 05/13/2025 GMLOS: 4.6 days Target Discharge Date: 05/17/2025 Discharge Planning Assessment completed at bedside and via phone with patient's daughter, Ismael. Cloth Examiner Machine identified self and role to the patient. [...] unit as she had a foul odor. Cloth Examiner Machine spoke with daughter, Ismael. She is agreeable [...] availability to send into the home yet. Cloth Examiner Machine discusses with Ismael that we will haev [...] Services Nurse visit Community Agencies Currently Utilized [employer] [Passport sample case porter and they plan to send an aid when they have availability.] Community Referrals / Resources Provided Denies needs Who is the existing DME Provider? [employer] ([employer]) ([phone]) Established DME Comments Walker, shower chair, and [...] Requested Patient expects to be discharged to: [facility] care Does the patient wish to have family/friend/caregiver involved in their discharge planning? Yes Does the patient plan to return home to a community setting? No, patient to discharge to facility-based provider. See Discharge Disposition Discharge Disposition SNF Who is the existing DME Provider? [employer] ([employer]) ) Does the patient need discharge transportation arranged? Yes Transportation Arranged Ambulance Patient choice offered Patient declined List Provided Patient declined Patient Declined Other (must state reason) [Patient states she only wants to go to [place]] AR Planning Complete Discharge Milestones Yes Pharmacy: [facility] PCP: Pam [facility] Providers this admission: Orthopedics for fracture Patient will make her own follow up appointments: no To be made by Nursing Home Facility Patient Goals: Goals per daughter and patient to SNF (pt-stated) Evaluation of progress towards goal: Patient and daughter agree she will need skilled care as a result of the fracture she has. PT Recommends: Pending evaluation OT Recommends: Pending evaluation Patient denies need for [facility] facility list. She states she will not ever go to [facility] again. She will only go to [facility]. Tasked transition team to send referral. Plan to prevent readmission: To [facility] facility. As above lengthy discission with patient and daughter regarding the need for patient to be clean at home and take her showers and change her clothes. Patient/Family do not endorse any questions at this time. Patient Discharge Plan: Nursing Home Care at [facility] (accepted) and pending insurance authorization. Can't submit until we have PT/OT evaluation and recommendation. Patient is WBAT. Plan of Care: [facility] (SNF) [phone] Fax CRF at Discharge Follow up appointments: Orthopedics would like to see patient in two weeks. This was added to AVS for SNF to schedule for patient. Purvi Cardenas RN 05/14/25 1:25 PM [employer] 05-14-2025 Consult note Associated Order (s): IP CONSULT TO ORTHOPEDIC SURGERY CONSULT NOTE: DATE OF ADMISSION 05/13/2025 10:27 AM REASON FOR CONSULTATION: MINIMALLY DISPLACED RT LESS TROCHANTER FRACTURE REFERRING PHYSICIAN No referring provider defined for this encounter. PCP Michael Joiner Jr, CHIEF COMPLAINT: Chief Complaint Patient presents with [...] Principal Problem Acute respiratory failure with hypoxia [place] RT lesser trochanter fracture. PAST MEDICAL HISTORY: Past Medical History: Diagnosis Date Anemia Arthritis Asthma very mild, no inhaler use Cataract Dental disease Depression Diabetes mellitus ([facility]) Diabetes mellitus type 2, controlled ([facility]) Encephalitis Foot fracture, left GERD (gastroesophageal reflux disease) Heart murmur HLD (hyperlipidemia) Hypertension Incontinence Injury of back Insulin dependent diabetes mellitus Kidney failure STAGE 4 Lumbar spondylolysis Murmur Obesity CHELSEA (obstructive sleep apnea) no machine Peptic ulceration Peripheral vascular disease Shortness of breath Stroke [place] 02/27/2024 TIA (transient ischemic attack) Upper respiratory infection UTI (urinary tract infection) Visual impairment Wears dentures PAST SURGICAL HISTORY: Past Surgical History: Procedure Laterality Date BREAST BIOPSY Right 03/01/2023 ULT BIOPSY CATARACT EXTRACTION SECTION SECTION 03/14/1974 EGD N/A 10/17/2019 Performed by Sarai Bell DO at [facility] H-PERCUTANEOUS CORONARY INTERVENTION HYSTEROSCOPY DILATION CURETTAGE MYOSURE N/A 01/29/2021 Performed by Jv Briones MD at [facility] INJECTION BLOCK EPIDURAL CAUDAL STEROID N/A 08/14/2022 Performed by Arnulfo Gonzalez MD at [facility] INJECTION BLOCK EPIDURAL CAUDAL STEROID N/A 06/06/2021 Performed by Arnulfo Gonzalez MD at [facility] INJECTION BLOCK EPIDURAL CAUDAL STEROID N/A 04/25/2021 Performed by Arnulfo Gonzalez MD at [facility] INJECTION CAUDAL EPIDURAL WITH CATHETER, STEROID N/A 05/03/2020 Performed by Arnulfo Gonzalez MD at [facility] INJECTION CAUDAL EPIDURAL WITH CATHETER, STEROID N/A 11/24/2019 Performed by Arnulfo Gonzalez MD at [facility] INJECTION CAUDAL EPIDURAL WITH CATHETER, STEROID N/A 04/21/2019 Performed by Arnulfo Gonzalez MD at [facility] INJECTION MEDIAL BRANCH NERVE BLOCK Bilateral L 4/5, 5/1 Bilateral 08/18/2019 Performed by Arnulfo Gonzalez MD at [facility] INJECTION MEDIAL BRANCH NERVE BLOCK Bilateral L 4/5, 5/1 Bilateral 06/23/2019 Performed by Arnulfo Gonzalez MD at [facility] INJECTION STEROID EPI 1 WITH SEDATION Right L 4, 5 NR Right 03/17/2019 Performed by Arnulfo Gonzalez MD at [facility] INJECTION STEROID EPI 1 WITH SEDATION: right L45 nroot Right 08/15/2018 Performed by Arnulfo Gonzalez MD at [facility] LEFT L4, AND 5 NERVE ROOT INJECTION 2 OF 2 Left 07/22/2018 Performed by Arnulfo Gonzalez MD at [facility] LEFT L4, AND L5 NERVE ROOT 1 OF 2 Left 07/04/2018 Performed by Arnulfo Gonzalez MD at [facility] SHUNT INSERTION TONSILLECTOMY AGE 4 Transcutaneous aortic valve replacement/Transfemoral/Kwan N/A 08/17/2023 Performed by Chava Norris MD at [facility] Valvuloplasty aortic N/A 06/03/2023 Performed by Chava Norris MD at [facility] ALLERGIES: No Known [...] 0 min Stress: Stress Concern Present (10/28/2024) [employer] - Occupational Stress Questionnaire Feeling of Stress : To some extent Social Connections: Moderately Integrated (10/28/2024) Social Connection and Isolation Panel [NHANES] Frequency of Communication with Friends and Family: Never Frequency of Social Gatherings with Friends and Family: More than three times a week Attends Synagogue Services: More than 4 times per year [...] office to schedule prior to discharge at [phone]. Imaging [address] hip right without contrast Result [...] Range Extra Tube Auto Resulted Extra Urine [place] Collection Time: 05/12/25 1:01 PM Specimen: Urine, Clean Catch Midstream Result Value Ref Range Extra Tube Auto Resulted Urine Culture Urine, Clean Catch Midstream Collection Time: 05/12/25 1:01 PM Specimen: Urine, Clean Catch Midstream Result Value Ref Range CULTURE RESULTS NO GROWTH AT <1000 CFU/mL POCT Nursing Urine Macroscopic UA Collection Time: 05/12/25 1:12 PM Result Value Ref Range POC Urine Specific Reynolds 1.015 1.010, 1.015, 1.020, 1.025 POC Urine [...] Abnormality Status --------- ------ Troponin I, High Sensiti...[[id number]] Abnormal Final result Troponin I, High Sensiti...[[id number]] Abnormal Final result Please view results for [...] Procedure Abnormality Status --------- ------ Light Blue Top[[id number]] Final result Please view results for these [...] to the algorithms linked below. Emergency Patient: [email or web address] Inpatient: [email or web address] Bedside Glucose *Place/Obtain serum glucose if >500 per glucometer. Collection Time: 05/13/25 2:39 PM Result Value Ref Range Bedside Glucose (POC) 384 (H) 65 - 99 mg/dL Extra Tubes Collection Time: 05/13/25 7:54 PM Narrative The following orders were created for panel order Extra Tubes. Procedure Abnormality Status --------- ------ PST TOP[[id number]] Final result Please view results for these [...] Procedure Component Value Units Date/Time Blood culture [[id number]] Collected: 05/13/25 1109 Specimen: Blood, Venous Updated: 05/14/25 1002 CULTURE RESULTS NO GROWTH <24 HRS Blood culture [[id number]] Collected: 05/13/25 1108 Specimen: Blood, Venous Updated: 05/14/25 1002 CULTURE RESULTS NO GROWTH <24 HRS Narrative: Only aerobic bottle received Urine Culture Urine, Clean Catch Midstream [[id number]] Collected: 05/12/25 1301 Specimen: Urine, Clean Catch Midstream Updated: 05/13/25 1839 CULTURE RESULTS NO GROWTH AT <1000 CFU/mL DAGO SCHAEFER APRN-KAIDEN Kim 05/14/25 1231 [employer] Work Phone: 05-14-2025 Consult note Associated Order [...] Principal Problem Acute respiratory failure with hypoxia [place] RT lesser trochanter fracture. PAST MEDICAL HISTORY: Past Medical History: Diagnosis Date Anemia Arthritis Asthma very mild, no inhaler use Cataract Dental disease Depression Diabetes mellitus [place] Diabetes mellitus type 2, controlled ([facility] Encephalitis Foot fracture, left GERD (gastroesophageal reflux disease) Heart murmur HLD (hyperlipidemia) Hypertension Incontinence Injury of back Insulin dependent diabetes mellitus Kidney failure STAGE 4 Lumbar spondylolysis Murmur Obesity CHELSEA (obstructive sleep apnea) no machine Peptic ulceration Peripheral vascular disease Shortness of breath Stroke [place] 02/27/2024 TIA (transient ischemic attack) Upper respiratory infection UTI (urinary tract infection) Visual impairment Wears dentures PAST SURGICAL HISTORY: Past Surgical History: Procedure Laterality Date BREAST BIOPSY Right 03/01/2023 ULT BIOPSY CATARACT EXTRACTION SECTION SECTION 03/14/1974 EGD N/A 10/17/2019 Performed by Sarai Bell DO at [facility] H-PERCUTANEOUS CORONARY INTERVENTION HYSTEROSCOPY DILATION CURETTAGE MYOSURE N/A 01/29/2021 Performed by Jv Briones MD at [facility] INJECTION BLOCK EPIDURAL CAUDAL STEROID N/A 08/14/2022 Performed by Arnulfo Gonzalez MD at [facility] INJECTION BLOCK EPIDURAL CAUDAL STEROID N/A 06/06/2021 Performed by Arnulfo Gonzalez MD at [facility] INJECTION BLOCK EPIDURAL CAUDAL STEROID N/A 04/25/2021 Performed by Arnulfo Gonzalez MD at [facility] INJECTION CAUDAL EPIDURAL WITH CATHETER, STEROID N/A 05/03/2020 Performed by Arnulfo Gonzalez MD at [facility] INJECTION CAUDAL EPIDURAL WITH CATHETER, STEROID N/A 11/24/2019 Performed by Arnulfo Gonzalez MD at [facility] INJECTION CAUDAL EPIDURAL WITH CATHETER, STEROID N/A 04/21/2019 Performed by Arnulfo Gonzalez MD at [facility] MEDIAL BRANCH NERVE BLOCK Bilateral L 4/5, 5/1 Bilateral 08/18/2019 Performed by Arnulfo Gonzalez MD at [facility] INJECTION MEDIAL BRANCH NERVE BLOCK Bilateral L 4/5, 5/1 Bilateral 06/23/2019 Performed by Arnulfo Gonzalez MD at [facility] INJECTION STEROID EPI 1 WITH SEDATION Right L 4, 5 NR Right 03/17/2019 Performed by Arnulfo Gonzalez MD at [facility] INJECTION STEROID EPI 1 WITH SEDATION: right L45 nroot Right 08/15/2018 Performed by Arnulfo Gonzalez MD at [facility] LEFT L4, AND 5 NERVE ROOT INJECTION 2 OF 2 Left 07/22/2018 Performed by Arnulfo Gonzalez MD at [facility] LEFT L4, AND L5 NERVE ROOT 1 OF 2 Left 07/04/2018 Performed by Arnulfo Gonzalez MD at [facility] SHUNT INSERTION TONSILLECTOMY AGE 4 Transcutaneous aortic valve replacement/Transfemoral/Kwan N/A 08/17/2023 Performed by Chava Norris MD at [facility] Valvuloplasty aortic N/A 06/03/2023 Performed by Chava Norris MD at [facility] ALLERGIES: No Known [...] 0 min Stress: Stress Concern Present (10/28/2024) [employer] - Occupational Stress Questionnaire Feeling of Stress : To some extent Social Connections: Moderately Integrated (10/28/2024) Social Connection and Isolation Panel [NHANES] Frequency of Communication with Friends and Family: Never Frequency of Social Gatherings with Friends and Family: More than three times a week Attends Synagogue Services: More than 4 times per year [...] office to schedule prior to discharge at [phone]. Imaging CT hip right without contrast Result [...] Range Extra Tube Auto Resulted Extra Urine [place] Collection Time: 05/12/25 1:01 PM Specimen: Urine, Clean Catch Midstream Result Value Ref Range Extra Tube Auto Resulted Urine Culture Urine, Clean Catch Midstream Collection Time: 05/12/25 1:01 PM Specimen: Urine, Clean Catch Midstream Result Value Ref Range CULTURE RESULTS NO GROWTH AT <1000 CFU/mL POCT Nursing Urine Macroscopic UA Collection Time: 05/12/25 1:12 PM Result Value Ref Range POC Urine Specific Reynolds 1.015 1.010, 1.015, 1.020, 1.025 POC Urine [...] Abnormality Status --------- ------ Troponin I, High Sensiti...[[id number]] Abnormal Final result Troponin I, High Sensiti...[[id number]] Abnormal Final result Please view results for [...] Procedure Abnormality Status --------- ------ Light Blue Top[[id number]] Final result Please view results for these [...] to the algorithms linked below. Emergency Patient: [email or web address] Inpatient: [email or web address] Bedside Glucose *Place/Obtain serum glucose if >500 per glucometer. Collection Time: 05/13/25 2:39 PM Result Value Ref Range Bedside Glucose (POC) 384 (H) 65 - 99 mg/dL Extra Tubes Collection Time: 05/13/25 7:54 PM Narrative The following orders were created for panel order Extra Tubes. Procedure Abnormality Status --------- ------ PST TOP[[id number]] Final result Please view results for these [...] Procedure Component Value Units Date/Time Blood culture [[id number]] Collected: 05/13/25 1109 Specimen: Blood, Venous Updated: 05/14/25 1002 CULTURE RESULTS NO GROWTH <24 HRS Blood culture [[id number]] Collected: 05/13/25 1108 Specimen: Blood, Venous Updated: 05/14/25 1002 CULTURE RESULTS NO GROWTH <24 HRS Narrative: Only aerobic bottle received Urine Culture Urine, Clean Catch Midstream [[id number]] Collected: 05/12/25 1301 Specimen: Urine, Clean Catch [...] Procedure Component Value Units Date/Time Blood culture [[id number]] Collected: 05/13/25 1109 Specimen: Blood, Venous Updated: 05/13/25 1122 Blood culture [[id number]] Collected: 05/13/25 1108 Specimen: Blood, Venous Updated: 05/13/25 1122 Urine Culture Urine, Clean Catch Midstream [[id number]] Collected: 05/12/25 1301 Specimen: Urine, Clean Catch [...] Joie Garcia RPH [facility]25 Progress note Formatting of t his note might be different from the original. DISCHARGE PLANNING NOTE Referral sent to. [facility]/ [facility], [place], [place] (P# ; F# ) [facility] 05-14-2025 Progress note Formatting of t his note is different from the original. Physical Therapy PT Type of Visit: (P) Medical deferral Reason For Medical Deferral: (P) Provider input needed (Await ortho consult for weightbearing status.) PT will continue to follow this patient. RN aware that therapy awaits weightbearing status. Thank you for this referral. [facility] Plan of care note Problem: Pain Goal: Patient goal is pain score less than 4, able to rest, and participant in treatment plan as appropriate Description: INTERVENTIONS: 1. Encourage patient or legal customer service representative to report early pain and ask [...] per policy 9. Teach patient or legal customer service representative interventions for comforting Outcome: Progressing Note: [...] at the bedside 7. Instruct patient/ patient customer service representative about use of safety devices 8. Include patient/ patient customer service representative in decisions related to safety Outcome: [...] hygiene technique. 7. Identify and instruct patient/patient customer service representative in use of appropriate isolation precautions for identified infection/symptoms. 8. Provide and discuss with patient/patient customer service representative on educational MDRO sheet. 9. Encourage and monitor nutritional status daily and consult compressor battery pellets if indicated. 10. Implement neutropenic guidelines as needed. Outcome: Progressing Note: Evaluation of progress towards goal: Pt afebrile at this time, continue to monitor for signs infection Problem: Knowledge Deficit Goal: Patient/patient customer service representative demonstrates understanding of disease process, treatment [...] Handoff to next level of care provider (healthcare science specialist, PCP, home care). 5. Complete follow up [...] Collaborate with ancillary departments 14. Include patient/patient customer service representative in decisions related to anxiety Outcome: [...] care 6. Collaborate with pastoral/spiritual care, social service agency director, mental health counselor as needed. 7. Instruct patient on diversional activities such as physical activity, distraction, and deep breathing exercises to assist with coping 8. Involve patient's customer service representative in care Outcome: Progressing Note: Evaluation [...] be free from fall Description: Interventions: 1. Story to environment 2. Hourly rounds addressing the [...] non-skid footwear 11. Teach patient and patient customer service representative to maintain environment for safety and [...] (cane, walker) within reach 19. Request patient customer service representative bring adaptive equipment/mobility aids from home or obtain and provide as needed 20. Consult pharmacy regarding effects of med's affecting mobility, cognition, and alternatives 21. Obtain physician order for PT if risk factors associated with mobility are present 22. Obtain physician order for OT as appropriate 23. Utilize diversional activities 24. Educate patient and patient customer service representative how to maintain a safe environment during visitation times (notify nurse prior to leaving bedside) 25. Consider appropriateness of medical or non-medical sonographer 26. Set up voiding schedule as appropriate [...] supplement as ordered 13. Collaborate with clinical compressor battery pellets 14. Include patient/ patient's customer service representative in decisions related to nutrition Outcome: [...] protectant applied as needed, labs monitored. [facility] 05-14-2025 History and physical note Images from the original note were not included. [facility] INTERNAL MEDICINE [facility] [address] [facility] [id number] Hospital Medicine History & Physical Patient: Cuca [...] Asthma, Cataract, Dental disease, Depression, Diabetes mellitus [place] Diabetes mellitus type 2, controlled ([facility] Encephalitis, Foot fracture, left, GERD (gastroesophageal reflux disease), Heart murmur, HLD (hyperlipidemia), Hypertension, Incontinence, Injury of back, Insulin dependent diabetes mellitus, Kidney failure, Lumbar spondylolysis, Murmur, Obesity, CHELSEA (obstructive sleep apnea), Peptic ulceration, Peripheral vascular disease, Shortness of breath, Stroke ([facility] (02/27/2024), TIA (transient ischemic attack), Upper respiratory [...] Normal pulses. Comments: Sinus tachycardia noted on plasma table operator heart rate of 104 Pulmonary: Effort: Pulmonary [...] Tubes. Procedure Abnormality Status --------- ------ PST TOP[[id number]] Final result Please view results for these [...] valve replacement. The distal portion of a TELEPHONE ANSWERING SERVICE OPERATOR shunt is seen within the abdomen. Again [...] ovarian. There is partial visualization of a TELEPHONE ANSWERING SERVICE OPERATOR shunt and changes of aortic valve replacement. [...] Principal Problem: Acute respiratory failure with hypoxia ([facility]) Active Problems: 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 mellitus ([facility]) Mixed diabetic hyperlipidemia associated with type 2 diabetes mellitus ([facility]) Obstructive sleep apnea syndrome Essential (primary) hypertension Acute on chronic diastolic congestive heart failure ([facility]) Stage 3b chronic kidney disease ([facility] Type 2 diabetes mellitus with diabetic chronic kidney disease ([facility]) Iron deficiency anemia Hypomagnesemia Closed fracture of right hip ([facility]) Nondisplaced fracture of lesser trochanter of right femur, initial encounter for closed fracture ([facility]) ASSESSMENT & PLAN Acute respiratory failure with [...] and treat. DC planning: Discharge home versus [facility] facility in 1-2 days. Sepsis suspected, yes-without [...] Zosyn and vancomycin. Vasopressors; not required. Vj Gray APRN-BARTOLO, 05/14/2025 1:37 PM [facility] Internal Medicine 7AM-7PM & 7PM-7AM: [...] with a normal limit 1.05 on 08/23/2024. [facility] 05-14-2025 History and physical note Images from the original note were not included. [facility] INTERNAL MEDICINE [facility] - [address] [id number] Hospital Medicine History & Physical Patient: Cuca [...] mg total) by mouth nightly. 01/22/25 Yes Pam Stinson APRN-BARTOLO nystatin (MYCOSTATIN) powder Apply 1 Application topically [...] Asthma, Cataract, Dental disease, Depression, Diabetes mellitus ([facility] Diabetes mellitus type 2, controlled ([facility]), Encephalitis, Foot fracture, left, GERD (gastroesophageal reflux disease), Heart murmur, HLD (hyperlipidemia), Hypertension, Incontinence, Injury of back, Insulin dependent diabetes mellitus, Kidney failure, Lumbar spondylolysis, Murmur, Obesity, CHELSEA (obstructive sleep apnea), Peptic ulceration, Peripheral vascular disease, Shortness of breath, Stroke ([facility]) (02/27/2024), TIA (transient ischemic attack), Upper respiratory [...] Normal pulses. Comments: Sinus tachycardia noted on plasma table operator heart rate of 104 Pulmonary: Effort: Pulmonary [...] Extra Tubes. Procedure Abnormality Status --------- ------ [facility] TOP[[id number]] Final result Please view results for these [...] valve replacement. The distal portion of a TELEPHONE ANSWERING SERVICE OPERATOR shunt is seen within the abdomen. Again [...] ovarian. There is partial visualization of a TELEPHONE ANSWERING SERVICE OPERATOR shunt and changes of aortic valve replacement. [...] Principal Problem: Acute respiratory failure with hypoxia ([facility]) Active Problems: 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 mellitus ([facility]) Mixed diabetic hyperlipidemia associated with type 2 diabetes mellitus ([facility]) Obstructive sleep apnea syndrome Essential (primary) hypertension Acute on chronic diastolic congestive heart failure ([facility] Stage 3b chronic kidney disease ([facility]) Type 2 diabetes mellitus with diabetic chronic kidney disease ([facility]) Iron deficiency anemia Hypomagnesemia Closed fracture of right hip ([facility]) Nondisplaced fracture of lesser trochanter of right femur, initial encounter for closed fracture ([facility] ASSESSMENT & PLAN Acute respiratory failure with [...] and treat. DC planning: Discharge home versus [facility] facility in 1-2 days. Sepsis suspected, yes-without [...] not required. KAIDEN Hopkins, 05/14/2025 1:37 PM [facility] Internal Medicine 7AM-7PM & 7PM-7AM: EpicChat [...] 1.05 on 08/23/2024. documented in this encounter [facility] 05-13-2025 Plan of care note Problem: Pain Goal: Patient goal is pain score less than 4, able to rest, and participant in treatment plan as appropriate Description: INTERVENTIONS: 1. Encourage patient or legal customer service representative to report early pain and ask [...] per policy 9. Teach patient or legal customer service representative interventions for comforting Outcome: Progressing Note: [...] at the bedside 7. Instruct patient/ patient customer service representative about use of safety devices 8. Include patient/ patient customer service representative in decisions related to safety Outcome: [...] hygiene technique. 7. Identify and instruct patient/patient customer service representative in use of appropriate isolation precautions for identified infection/symptoms. 8. Provide and discuss with patient/patient customer service representative on educational MDRO sheet. 9. Encourage and monitor nutritional status daily and consult compressor battery pellets if indicated. 10. Implement neutropenic guidelines as needed. Outcome: Progressing Note: Evaluation of progress towards goal: Pt receiving IV ATB. [facility] 05-13-2025 Nurse Note Pt pulled put her IV and when newspaper writer asked why she stated, I don't know, I can't stop picking. New IV placed-ultrasound guided. Education provided and teach back method used. Pt able to state why she should not remove the medical equipment. Pt has taken off oxygen and tele patches several times despite redirection. Tele sitter initiated. Bed remains locked and lowered. Bed alarm on and call light within reach. [facility] 05-13-2025 Nurse Note Pt pulled put her IV and when newspaper writer asked why she stated, I don't [...] light within reach. documented in this encounter [facility] 05-13-2025 Plan of care note Problem: Pain Goal: Patient goal is pain score less than 4, able to rest, and participant in treatment plan as appropriate Description: INTERVENTIONS: 1. Encourage patient or legal customer service representative to report early pain and ask [...] per policy 9. Teach patient or legal customer service representative interventions for comforting Outcome: Progressing Note: [...] at the bedside 7. Instruct patient/ patient customer service representative about use of safety devices 8. Include patient/ patient customer service representative in decisions related to safety Outcome: [...] hygiene technique. 7. Identify and instruct patient/patient customer service representative in use of appropriate isolation precautions for identified infection/symptoms. 8. Provide and discuss with patient/patient customer service representative on educational MDRO sheet. 9. Encourage and monitor nutritional status daily and consult compressor battery pellets if indicated. 10. Implement neutropenic guidelines as needed. Outcome: Progressing Note: Evaluation of progress towards goal: Isolation precautions followed per protocol. Equipment cleaned between patients. Handwashing protocol followed. [address] [facility] 05-13-2025 Consult note Associated Order [...] Procedure Component Value Units Date/Time Blood culture [[id number]] Collected: 05/13/25 1109 Specimen: Blood, Venous Updated: 05/13/25 112 Blood culture [[id number]] Collected: 05/13/25 1108 Specimen: Blood, Venous Updated: 05/13/25 112 Urine Culture Urine, Clean Catch Midstream [[id number]] Collected: 05/12/25 1301 Specimen: Urine, Clean Catch [...] Thank you for consulting. Joie Garcia RPH [facility] 05-13-2025 History of Present illness Narrative Adjusted dose of Zosyn to 3.375grams every 8 hours for diagnosis of sepsis and crcl 29.6ml/min Joei Garcia PharmD [facility] documented in this encounter [facility] 05-13-2025 Physician Emergency department Note Associated Order(s): Critical Care Images from the original note were not included. [facility] - EMERGENCY Pt Name: Cuca Dee Birthdate: [...] Cataract Dental disease Depression Diabetes mellitus ([facility]) Diabetes mellitus type 2, controlled ([facility]) Encephalitis Foot fracture, left GERD (gastroesophageal reflux disease) Heart murmur HLD (hyperlipidemia) Hypertension Incontinence Injury of back Insulin dependent diabetes mellitus Kidney failure STAGE 4 Lumbar spondylolysis Murmur Obesity CHELSEA (obstructive sleep apnea) no machine Peptic ulceration Peripheral vascular disease Shortness of breath Stroke ([facility]) 02/27/2024 TIA (transient ischemic attack) Upper respiratory infection UTI (urinary tract infection) Visual impairment Wears dentures Past Surgical History: Past Surgical History: Procedure Laterality Date BREAST BIOPSY Right 03/01/2023 ULT BIOPSY CATARACT EXTRACTION SECTION SECTION 03/14/1974 EGD N/A 10/17/2019 Performed by Sarai Bell DO at [facility] H-PERCUTANEOUS CORONARY INTERVENTION HYSTEROSCOPY DILATION CURETTAGE MYOSURE N/A 01/29/2021 Performed by Jv Briones MD at [facility] INJECTION BLOCK EPIDURAL CAUDAL STEROID N/A 08/14/2022 Performed by Arnulfo Gonzalez MD at [facility] INJECTION BLOCK EPIDURAL CAUDAL STEROID N/A 06/06/2021 Performed by Arnulfo Gonzalez MD at [facility] INJECTION BLOCK EPIDURAL CAUDAL STEROID N/A 04/25/2021 Performed by Arnulfo Gonzalez MD at [facility] INJECTION CAUDAL EPIDURAL WITH CATHETER, STEROID N/A 05/03/2020 Performed by Arnulfo Gonzalez MD at [facility] INJECTION CAUDAL EPIDURAL WITH CATHETER, STEROID N/A 11/24/2019 Performed by Arnulfo Gonzalez MD at [facility] INJECTION CAUDAL EPIDURAL WITH CATHETER, STEROID N/A 04/21/2019 Performed by Arnulfo Gonzalez MD at [facility] MEDIAL BRANCH NERVE BLOCK Bilateral L 4/5, 5/1 Bilateral 08/18/2019 Performed by Arnulfo Gonzalez MD at [facility] MEDIAL BRANCH NERVE BLOCK Bilateral L 4/5, 5/1 Bilateral 06/23/2019 Performed by Arnulfo Gonzalez MD at [facility] STEROID EPI 1 WITH SEDATION Right L 4, 5 NR Right 03/17/2019 Performed by Arnulfo Gonzalez MD at [facility] INJECTION STEROID EPI 1 WITH SEDATION: right L45 nroot Right 08/15/2018 Performed by Arnulfo Gonzalez MD at [facility] LEFT L4, AND 5 NERVE ROOT INJECTION 2 OF 2 Left 07/22/2018 Performed by Arnulfo Gonzalez MD at [facility] LEFT L4, AND L5 NERVE ROOT 1 OF 2 Left 07/04/2018 Performed by Arnulfo Gonzalez MD at [facility] SHUNT INSERTION TONSILLECTOMY AGE 4 Transcutaneous aortic valve replacement/Transfemoral/Kwan N/A 08/17/2023 Performed by Chava Norris MD at [facility] Valvuloplasty aortic N/A 06/03/2023 Performed by Chava Norris MD at [facility] Family History: Family [...] 0 min Stress: Stress Concern Present (10/28/2024) [employer] - Occupational Stress Questionnaire Feeling of Stress : To some extent Social Connections: Moderately Integrated (10/28/2024) Social Connection and Isolation Panel [NHANES] Frequency of Communication with Friends and Family: Never Frequency of Social Gatherings with Friends and Family: More than three times a week Attends Synagogue Services: More than 4 times per year [...] provider(s): 11:[address] Martins concrete swimming pool installer for Dr Joiner, after discussion with the patient, she was a patient of Deja Stinson who had previously worked in Dr joiner's office. Patient reports she was planning on seeing Dr. Basurto has now that valve is no longer [...] Course: ED Course as of 05/15/25 1410 [place] May 13, 2025 1049 ECG notable for sinus tachycardia. LBBB. [SURINDER] ED Course User Index [SURINDER] Jack Milligan, DO Clinical Impressions as of 05/15/25 1410 Acute respiratory failure with hypoxia ([facility]) Nondisplaced fracture of lesser trochanter of right femur, initial encounter for closed fracture ([facility]) Generalized weakness Closed fracture of right hip, initial encounter ([facility]) Hypoxia Type 2 diabetes mellitus with hypoglycemia without coma, with long-term current use of insulin ([facility]) . ED Disposition ED Disposition Admit Date/Time [place] May 13, 2025 1:37 PM Comment At this time, the patient has objective evidence of an acute process that will likely require hospitalization for greater than 2 midnights. The patient will be admitted. Medications Prescribed this Visit This print group is not available in inpatient encounters. Please contact a irrigation system installer. Shared/Split Visit 11:24 EDT Jazmine Huber (maria eugenia), scribed for and in the presence of: Dr. Heri Milligan who performed the above service. I, Dr. Milligan personally performed a [id number] diagnostic evaluation on this patient. I personally [...] 05/13/25 2121 Jack Milligan DO 05/14/25 2254 [facility] 05-13-2025 Emergency department Note Associated Order(s): Critical Care Images from the original note were not included. [facility] - EMERGENCY Pt Name: Cuca Dee Birthdate: [...] Cataract Dental disease Depression Diabetes mellitus ([facility] Diabetes mellitus type 2, controlled ([facility]) Encephalitis Foot fracture, left GERD (gastroesophageal reflux disease) Heart murmur HLD (hyperlipidemia) Hypertension Incontinence Injury of back Insulin dependent diabetes mellitus Kidney failure STAGE 4 Lumbar spondylolysis Murmur Obesity CHELSEA (obstructive sleep apnea) no machine Peptic ulceration Peripheral vascular disease Shortness of breath Stroke ([facility]) 02/27/2024 TIA (transient ischemic attack) Upper respiratory infection UTI (urinary tract infection) Visual impairment Wears dentures Past Surgical History: Past Surgical History: Procedure Laterality Date BREAST BIOPSY Right 03/01/2023 ULT BIOPSY CATARACT EXTRACTION SECTION SECTION 03/14/1974 EGD N/A 10/17/2019 Performed by Sarai Bell DO at [facility] H-PERCUTANEOUS CORONARY INTERVENTION HYSTEROSCOPY DILATION CURETTAGE MYOSURE N/A 01/29/2021 Performed by Jv Briones MD at [facility] INJECTION BLOCK EPIDURAL CAUDAL STEROID N/A 08/14/2022 Performed by Arnulfo Gonzalez MD at [facility] INJECTION BLOCK EPIDURAL CAUDAL STEROID N/A 06/06/2021 Performed by Arnulfo Gonzalez MD at [facility] INJECTION BLOCK EPIDURAL CAUDAL STEROID N/A 04/25/2021 Performed by Arnulfo Gonzalez MD at [facility] INJECTION CAUDAL EPIDURAL WITH CATHETER, STEROID N/A 05/03/2020 Performed by Arnulfo Gonzalez MD at [facility] INJECTION CAUDAL EPIDURAL WITH CATHETER, STEROID N/A 11/24/2019 Performed by Arnulfo Gonzalez MD at [facility] INJECTION CAUDAL EPIDURAL WITH CATHETER, STEROID N/A 04/21/2019 Performed by Arnulfo Gonzalez MD at [facility] MEDIAL BRANCH NERVE BLOCK Bilateral L 4/5, 5/1 Bilateral 08/18/2019 Performed by Arnulfo Gonzalez MD at [facility] MEDIAL BRANCH NERVE BLOCK Bilateral L 4/5, 5/1 Bilateral 06/23/2019 Performed by Arnulfo Gonzalez MD at [facility] STEROID EPI 1 WITH SEDATION Right L 4, 5 NR Right 03/17/2019 Performed by Arnulfo Gonzalez MD at [facility] INJECTION STEROID EPI 1 WITH SEDATION: right L45 nroot Right 08/15/2018 Performed by Arnulfo Gonzalez MD at [facility] LEFT L4, AND 5 NERVE ROOT INJECTION 2 OF 2 Left 07/22/2018 Performed by Arnulfo Gonzalez MD at [facility] LEFT L4, AND L5 NERVE ROOT 1 OF 2 Left 07/04/2018 Performed by Arnulfo Gonzalez MD at [facility] SHUNT INSERTION TONSILLECTOMY AGE 4 Transcutaneous aortic valve replacement/Transfemoral/Kwan N/A 08/17/2023 Performed by Chava Norris MD at [facility] Valvuloplasty aortic N/A 06/03/2023 Performed by Chava Norris MD at [facility] Family History: Family [...] 0 min Stress: Stress Concern Present (10/28/2024) [employer] - Occupational Stress Questionnaire Feeling of Stress : To some extent Social Connections: Moderately Integrated (10/28/2024) Social Connection and Isolation Panel [NHANES] Frequency of Communication with Friends and Family: Never Frequency of Social Gatherings with Friends and Family: More than three times a week Attends Synagogue Services: More than 4 times per year [...] provider(s): 11:[address] Martins concrete swimming pool installer for Dr Joiner, after discussion with the patient, she was a patient of Deja Stinson who had previously worked in Dr joiner's office. Patient reports she was planning on seeing Dr. Basurto has now that valve is no longer [...] Course: ED Course as of 05/15/25 1410 [place] May 13, 2025 1049 ECG notable for sinus tachycardia. LBBB. [SURINDER] ED Course User Index [SURINDER] Jack Milligan DO Clinical Impressions as of 05/15/25 1410 Acute respiratory failure with hypoxia ([facility]) Nondisplaced fracture of lesser trochanter of right femur, initial encounter for closed fracture ([facility]) Generalized weakness Closed fracture of right hip, initial encounter ([facility]) Hypoxia Type 2 diabetes mellitus with hypoglycemia without coma, with long-term current use of insulin ([facility]) . ED Disposition ED Disposition Admit Date/Time [place] May 13, 2025 1:37 PM Comment At this time, the patient has objective evidence of an acute process that will likely require hospitalization for greater than 2 midnights. The patient will be admitted. Medications Prescribed this Visit This print group is not available in inpatient encounters. Please contact a irrigation system installer. Shared/Split Visit 11:24 EDT Jazmine Huber (maria eugenia), scribed for and in the presence of: Dr. Heri Milligan who performed the above service. IDr. Milligan personally performed a [id number] diagnostic evaluation on this patient. I personally [...] Jimenez 05/13/25 1128 KAIDEN Phillips 05/13/25 1200 Jazmine Bustillo APRN-BARTOLO 05/13/25 1255 Jazmine Bustillo APRN-BARTOLO 05/13/25 1305 KAIDEN Phillips 05/13/25 1341 KAIDEN Phillips 05/13/25 2121 Jack Milligan DO 05/14/25 2254 documented in this encounter [facility] 05-13-2025 Note Procedure: Chest x-ray performed Number of views:1 History:Shortness of breath Comparison:04/28/2025 Findings: The heart and lungs show no acute findings, and the mediastinum and stanley are grossly negative . Tube overlying right chest stable. Impression: 1. No acute change. 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 She presented to the [...] Hypertension Ischemic stroke (CMS/HCC) 02/2024 seen at [facility] NPH (normal pressure hydrocephalus) (CMS/HCC) PVD (peripheral [...] Resource Strain: Medium Risk (10/28/2024) Received from [employer] Overall Financial Resource Strain (CARDIA) Difficulty of Paying Living Expenses: Somewhat hard Food Insecurity: No Food Insecurity (04/04/2025) Received from [facility] Hunger Screening Within the past 12 months we worried whether our food would run out before we got money to buy more.: Never True Within the past 12 months the food we bought just didn't last and we didn't have money to get more.: Never True Transportation Needs: No Transportation Needs (03/16/2025) Received from [facility] PRAPARE - Transportation Lack of Transportation (Medical): No Lack of Transportation (Non-Medical): No Physical Activity: Inactive (10/28/2024) Received from [employer] Exercise Vital Sign Days of Exercise per Week: 0 days Minutes of Exercise per Session: 0 min Stress: Stress Concern Present (10/28/2024) Received from [employer] - Occupational Stress Questionnaire Feeling of Stress : To some extent Social Connections: Moderately Integrated (10/28/2024) Received from [employer] Social Connection and Isolation Panel [NHANES] Frequency of Communication with Friends and Family: Never Frequency of Social Gatherings with Friends and Family: More than three times a week Attends Synagogue Services: More than 4 times per year [...] file Housing Stability: (more content not included)... [facility] 04-04-2025 History of Present illness Narrative Images from the original note were not included. [address] [place] [facility] [address] SUBJECTIVE: Patient ID: Cuca Dee [...] home. Patient and daughter have discussed possible chcf placement as well but this is not [...] 10/17/2019 Performed by Sarai Bell DO at [facility] H-PERCUTANEOUS CORONARY INTERVENTION HYSTEROSCOPY DILATION CURETTAGE MYOSURE N/A 01/29/2021 Performed by Jv Briones MD at [facility] INJECTION BLOCK EPIDURAL CAUDAL STEROID N/A 08/14/2022 Performed by Arnulfo Gonzalez MD at [facility] INJECTION BLOCK EPIDURAL CAUDAL STEROID N/A 06/06/2021 Performed by Arnulfo Gonzalez MD at [facility] INJECTION BLOCK EPIDURAL CAUDAL STEROID N/A 04/25/2021 Performed by Arnulfo Gonzalez MD at [facility] INJECTION CAUDAL EPIDURAL WITH CATHETER, STEROID N/A 05/03/2020 Performed by Arnulfo Gonzalez MD at [facility] INJECTION CAUDAL EPIDURAL WITH CATHETER, STEROID N/A 11/24/2019 Performed by Arnulfo Gonzalez MD at [facility] INJECTION CAUDAL EPIDURAL WITH CATHETER, STEROID N/A 04/21/2019 Performed by Arnulfo Gonzalez MD at [facility] INJECTION MEDIAL BRANCH NERVE BLOCK Bilateral L 4/5, 5/1 Bilateral 08/18/2019 Performed by Arnulfo Gonzalez MD at [facility] INJECTION MEDIAL BRANCH NERVE BLOCK Bilateral L 4/5, 5/1 Bilateral 06/23/2019 Performed by Arnulfo Gonzalez MD at [facility] STEROID EPI 1 WITH SEDATION Right L 4, 5 NR Right 03/17/2019 Performed by Arnulfo Gonzalez MD at [facility] INJECTION STEROID EPI 1 WITH SEDATION: right L45 nroot Right 08/15/2018 Performed by Arnulfo Gonzalez MD at [facility] LEFT L4, AND 5 NERVE ROOT INJECTION 2 OF 2 Left 07/22/2018 Performed by Arnulfo Gonzalez MD at [facility] LEFT L4, AND L5 NERVE ROOT 1 OF 2 Left 07/04/2018 Performed by Arnulfo Gonzalez MD at [facility] SHUNT INSERTION TONSILLECTOMY AGE 4 Transcutaneous aortic valve replacement/Transfemoral/Kwan N/A 08/17/2023 Performed by Chava Norris MD at [facility] Valvuloplasty aortic N/A 06/03/2023 Performed by Chava Norris MD at [facility] Past Medical History: Diagnosis Date Anemia Arthritis Asthma very mild, no inhaler use Cataract Dental disease Depression Diabetes mellitus ([facility]) Diabetes mellitus type 2, controlled ([facility]) Encephalitis Foot fracture, left GERD (gastroesophageal reflux disease) Heart murmur HLD (hyperlipidemia) Hypertension Incontinence Injury of back Insulin dependent diabetes mellitus Kidney failure STAGE 4 Lumbar spondylolysis Murmur Obesity CHELSEA (obstructive sleep apnea) no machine Peptic ulceration Peripheral vascular disease Shortness of breath Stroke ([facility]) 02/27/2024 TIA (transient ischemic attack) Upper respiratory [...] Type 2 DM -Managed by endocrine [place] [place], Dr. Majano. She believes her A1c is [...] Heart Failure Severe aortic stenosis history, NSTEMI 11.2021, TAVR 2022 Continue plan of care per [...] Werner 04/04/25 1537 documented in this encounter [employer] 04-03-2025 History of Present illness Narrative Patient [...] of her daughter. documented in this encounter [employer] 04-01-2025 History of Present illness Narrative Pt here for IV daptomycin. After multiple IV attempts. Unable to obtain IV access. Daughter states pt is not drinking much fluids. Encouraged to hydrate and will re attempt for IV daptomycin as scheduled on Wednesday. Pt and daughter agree and v/u. documented in this encounter [facility] 03-30-2025 History of Present illness Narrative Pt arrived in her w/c with her daughter. PIV working well. Pt c/o nausea which subsided with drinking Starry. Daptomycin infused w/o difficulty. PIV removed afterwards. Pt and daughter left to return Wednesday. documented in this encounter [facility] 03-28-2025 History of Present illness Narrative [...] condition with daughter. documented in this encounter [facility] 03-26-2025 History of Present illness Narrative The patient is here today for Daptomycin She comes in with walking with a Rolator PICC line in place, brisk blood return noted Daptomycin started and completed over 30 min PICC line dressing change completed Patient tolerated well Patient discharged in stable condition to daughter documented in this encounter [facility] 03-24-2025 History of Present illness Narrative The patient is here today for Daptomycin She comes in with walking with a Rolator PICC line in place, brisk blood return noted Lab draw completed from PICC Daptomycin started and completed over 30 min PICC line dressing change completed Patient tolerated well Patient discharged in stable condition to daughter documented in this encounter [facility] 03-22-2025 History of Present illness Narrative [...] of future appointments. [facility] History of Present illness Narrative Consult received on ambulatory infusion patient to assist with transportation resources for IV AB infusion. Chart reviewed. Cloth Examiner Machine met with pleasant pt & her daughter Ileana, introduced self & role. Ileana informs [facility] is not able to provide transportation on Wednesday. Ileana is unexpectedly without a vehicle, her son does not drive, pt said she's unsure if her brother would assist as she's not spoken with him for a while. They have a friend who assisted with transportation today however her time is limited; neighbors are not an option. Cloth Examiner Machine notes pt has [employer] Medicare, informed pt & daughter that some plans offer medical appointment transportation. Ileana informs pt had used this a long time ago; newspaper writer offered Access to Care phone number for [employer] transportation services, Ileana informs she has number in phone. Encouraged Ileana to call [facility] to try to get on schedule. Pt does not endorse food insecurity, is receiving small amount of SNAP. Pt does not have Medicaid, pt & daughter relay pt had Medicaid but was cut in november due possibly something about utility bills. Cloth Examiner Machine encouraged pt/Ileana to re-apply for Medicaid. Pt has medical bills; educated on [facility] [employer] & provided [facility] [employer] name/contact information to reach out for assistance. Educated on [employer] Services, how to go about to request in home assessment; PASSPORT information sheet provided. Provided Anand Manjarrez No Wrong Door info sheet for area resources; pt declined [employer] Senior Directory stating she has booklet. Ileana contacting [employer] transport services at this time to arrange transportation. Provided writers contact information, newspaper writer available if needed. Message to Ambulatory RN CN at PCP office requesting follow up with patient. documented in this encounter [facility] 03-20-2025 History of Present illness Narrative [...] transportation lined up. documented in this encounter [facility] 03-14-2025 History of Present illness Narrative [...] to private vehicle. documented in this encounter [facility] 03-12-2025 History of Present illness Narrative The patient is here today for Daptomycin She comes in with walking with a Rolator PICC line in place, brisk blood return noted Lab draw completed from PICC Daptomycin started and completed over 30 min PICC line dressing change completed Patient tolerated well Patient discharged in stable condition to daughter documented in this encounter [facility] 03-08-2025 Miscellaneous Notes Called to schedule new pt appt and was informed that the pt was already seeing nephrology. documented in this encounter [facility] 03-08-2025 Telephone encounter Note Called to schedule new pt appt and was informed that the pt was already seeing nephrology. [facility] 02-20-[address] CHEST WO CONT PROCEDURE: CT CHEST WITHOUT CONTRAST CLINICAL INDICATION: Bacteremia. COMPARISON STUDY: 02/14/2025. TECHNIQUE: CT was performed of the chest without intravenous contrast. Coronal & sagittal MPR images were generated and reviewed. Computer aided detection for pulmonary nodules was performed utilizing [employer] software. FINDINGS: Lack of intravenous contrast limits [...] by Lacho Soliman on 02/20/2025 8:21 AM [facility] 02-18-2025 Miscellaneous Notes Contract: 1 [id number] [address] [facility] [phone] re critical lab Secure chat Rosario documented in this encounter [facility] 02-18-2025 Telephone encounter Note Contract: 1 [id number] [facility] [phone] re critical lab Secure chat Rosario [facility] 01-25-2025 History of Present illness Narrative Images from the original note were not included. [facility] 01/25/25 Cuca Dee is a 79 y.o. year old female seen today in the oncology clinic. Chief Complaint Patient presents with Follow-up History of Present Illness: Mrs. Dee is a 79 y.o. female with history of aortic valve stenosis, she had PCI earlier in the year at [facility] for coronary disease. during the cardiac [...] mammary carcinoma, grade 2, ER strongly positive MO moderately positive and HER2 negative. There was [...] Cataract Dental disease Depression Diabetes mellitus ([facility]) Diabetes mellitus type 2, controlled ([facility]) Encephalitis Foot fracture, left GERD (gastroesophageal reflux disease) Heart murmur HLD (hyperlipidemia) Hypertension Incontinence Injury of back Insulin dependent diabetes mellitus Kidney failure STAGE 4 Lumbar spondylolysis Murmur Obesity CHELSEA (obstructive sleep apnea) no machine Peptic ulceration Peripheral vascular disease ([facility]) Shortness of breath Stroke ([facility]) 02/27/2024 TIA (transient ischemic attack) Upper respiratory infection UTI (urinary tract infection) Visual impairment Wears dentures Past Surgical History: Procedure Laterality Date BREAST BIOPSY Right 03/01/2023 ULT BIOPSY CATARACT EXTRACTION SECTION SECTION 03/14/1974 EGD N/A 10/17/2019 Performed by Sarai Bell DO at [facility] H-PERCUTANEOUS CORONARY INTERVENTION HYSTEROSCOPY DILATION CURETTAGE MYOSURE N/A 01/29/2021 Performed by Jv Briones MD at [facility] INJECTION BLOCK EPIDURAL CAUDAL STEROID N/A 08/14/2022 Performed by Arnulfo Gonzalez MD at [facility] INJECTION BLOCK EPIDURAL CAUDAL STEROID N/A 06/06/2021 Performed by Arnulfo Gonzalez MD at [facility] IN[facility]CTION BLOCK EPIDURAL CAUDAL STEROID N/A 04/25/2021 Performed by Arnulfo Gonzalez MD at [facility] IN[facility]CTION CAUDAL EPIDURAL WITH CATHETER, STEROID N/A 05/03/2020 Performed by Arnulfo Gonzalez MD at [facility] IN[facility]CTION CAUDAL EPIDURAL WITH CATHETER, STEROID N/A 11/24/2019 Performed by Arnulfo Gonzalez MD at [facility] IN[facility] CAUDAL EPIDURAL WITH CATHETER, STEROID N/A 04/21/2019 Performed by Arnulfo Gonzalez MD at [facility] INJECTION MEDIAL BRANCH NERVE BLOCK Bilateral L 4/5, 5/ Bilateral 08/18/2019 Performed by Arnulfo Gonzalez MD at [facility] INJECTION MEDIAL BRANCH NERVE BLOCK Bilateral L 4/5, 5/1 Bilateral 06/23/2019 Performed by Arnulfo Gonzalez MD at [facility] INJECTION STEROID EPI 1 WITH SEDATION Right L 4, 5 NR Right 03/17/2019 Performed by Arnulfo Gonzalez MD at [facility] INJECTION STEROID EPI 1 WITH SEDATION: right L45 nroot Right 08/15/2018 Performed by Arnulfo Gonzalez MD at [facility] LEFT L4, AND 5 NERVE ROOT INJECTION 2 OF 2 Left 07/22/2018 Performed by Arnulfo Gonzalez MD at [facility] LEFT L4, AND L5 NERVE ROOT 1 OF 2 Left 07/04/2018 Performed by Arnulfo Gonzalez MD at [facility] SHUNT INSERTION TONSILLECTOMY AGE 4 Transcutaneous aortic valve replacement/Transfemoral/Kwan N/A 08/17/2023 Performed by Chava Norris MD at [facility] Valvuloplasty aortic N/A 06/03/2023 Performed by Chava Norris MD at [facility] Family History Problem [...] 0 min Stress: Stress Concern Present (10/28/2024) [employer] - Occupational Stress Questionnaire Feeling of Stress : To some extent Social Connections: Moderately Integrated (10/28/2024) Social Connection and Isolation Panel [NHANES] Frequency of Communication with Friends and Family: Never Frequency of Social Gatherings with Friends and Family: More than three times a week Attends Synagogue Services: More than 4 times per year [...] associated with type 2 diabetes mellitus ([facility]) Dose: 40 mg Signed by: KAIDEN Santana 40 mg, oral, Nightly Commonly known as: LIPITOR blood-glucose meter misc Quantity: 1 each Refills: 0 Doctor's comments: Whatever covered by insurance For diagnoses: Controlled type 2 diabetes mellitus with diabetic nephropathy, without long-term current use of insulin ([facility]) Signed by: KAIDEN Santana Monitor blood sugars four times daily and as needed DEXCOM G7 LINING IRONER misc Refills: 0 Generic drug: blood-glucose meter,continuous DEXCOM G7 SENSOR device Refills: 0 Generic drug: blood-glucose sensor furosemide 20 mg tablet Refills: 0 Dose: 20 mg Commonly known as: LASIX gabapentin 300 mg capsule Quantity: 180 capsule Refills: 1 Doctor's comments: 90 Day Supply with one refill For diagnoses: 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 mellitus ([facility]) Dose: 300 mg Signed by: KAIDEN Santana [...] nephropathy, without long-term current use of insulin ([facility] Signed by: KAIDEN Santana Monitor blood sugars [...] to ensure the accuracy of this automated rush seater, some errors in rush seater may have occurred. CC: Patient Care Team: Pam Stinson APRN-ARCHITECT [employer] as PCP - General (Family Medicine) John Quiles MD (Nephrology) KAIDEN Hsu as Nurse Practitioner (Pulmonary Medicine) Madison Ye MD as Referring Physician (Endocrinology, Diabetes & Metabolism) Casimiro Muñoz MD as Consulting Physician (Hematology) PCP:Pam Stinson Referring MD: Pam Stinson, AP* documented in this encounter [facility] 01-25-2025 Instructions Casimiro Muñoz MD - 01/25/2025 2:15 PM EDT PET scan now. Bilateral screening mammogram. F/u in 3 months, CBC, CMP, CA 15-3, CA 27.29. documented in this encounter [facility] 01-22-2025 History of Present illness Narrative Images from the original note were not included. [address] [place] [id number] SUBJECTIVE: Patient ID: Cuca Dee is a [...] 10/17/2019 Performed by Sarai Bell DO at [facility] H-PERCUTANEOUS CORONARY INTERVENTION HYSTEROSCOPY DILATION CURETTAGE MYOSURE N/A 01/29/2021 Performed by Jv Briones MD at [facility] INJECTION BLOCK EPIDURAL CAUDAL STEROID N/A 08/14/2022 Performed by Arnulfo Gonzalez MD at [facility] INJECTION BLOCK EPIDURAL CAUDAL STEROID N/A 06/06/2021 Performed by Arnulfo Gonzalez MD at [facility] INJECTION BLOCK EPIDURAL CAUDAL STEROID N/A 04/25/2021 Performed by Arnulfo Gonzalez MD at [facility] INJECTION CAUDAL EPIDURAL WITH CATHETER, STEROID N/A 05/03/2020 Performed by Arnulfo Gonzalez MD at [facility] INJECTION CAUDAL EPIDURAL WITH CATHETER, STEROID N/A 11/24/2019 Performed by Arnulfo Gonzalez MD at [facility] INJECTION CAUDAL EPIDURAL WITH CATHETER, STEROID N/A 04/21/2019 Performed by Arnulfo Gonzalez MD at [facility] MEDIAL BRANCH NERVE BLOCK Bilateral L 4/5, 5/1 Bilateral 08/18/2019 Performed by Arnulfo Gonzalez MD at [facility] MEDIAL BRANCH NERVE BLOCK Bilateral L 4/5, 5/1 Bilateral 06/23/2019 Performed by Arnulfo Gonzalez MD at [facility] INJECTION STEROID EPI 1 WITH SEDATION Right L 4, 5 NR Right 03/17/2019 Performed by Arnulfo Gonzalez MD at [facility] INJECTION STEROID EPI 1 WITH SEDATION: right L45 nroot Right 08/15/2018 Performed by Arnulfo Gonzalez MD at [facility] LEFT L4, AND 5 NERVE ROOT INJECTION 2 OF 2 Left 07/22/2018 Performed by Arnulfo Gonzalez MD at [facility] LEFT L4, AND L5 NERVE ROOT 1 OF 2 Left 07/04/2018 Performed by Arnulfo Gonzalez MD at [facility] SHUNT INSERTION TONSILLECTOMY AGE 4 Transcutaneous aortic valve replacement/Transfemoral/Kwan N/A 08/17/2023 Performed by Chava Norris MD at [facility] Valvuloplasty aortic N/A 06/03/2023 Performed by Chava Norris MD at [facility] Past Medical History: Diagnosis Date Anemia Arthritis Asthma very mild, no inhaler use Cataract Dental disease Depression Diabetes mellitus ([facility]) Diabetes mellitus type 2, controlled ([facility]) Encephalitis Foot fracture, left GERD (gastroesophageal reflux disease) Heart murmur HLD (hyperlipidemia) Hypertension Incontinence Injury of back Insulin dependent diabetes mellitus Kidney failure STAGE 4 Lumbar spondylolysis Murmur Obesity CHELSEA (obstructive sleep apnea) no machine Peptic ulceration Peripheral vascular disease ([facility]) Shortness of breath Stroke ([facility]) 02/27/2024 TIA (transient ischemic attack) Upper respiratory [...] episode of recurrent major depressive disorder ([facility]) Stage 3b chronic kidney disease (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 Left [facility] Work Phone: [phone]) 601-543503-06-2025 History of Present illness Narrative* Encounter Date Complaint History Of Prese nt Illness AMD The 79 year old female presents for evaluation of AMD in the right and left eyes. Patient states vision stables. Patient Denies any new flashes, floaters, or discomfort. Patient does not use drops at home. [facility] Work Phone: [phone]) 194-754503-06-2025 Instructions* Date Instruction Additional Infor matrob Impression/Plan Related to Prese nce of intraocular [...] to Pseud ophakia Diabetes, Type 2, wi out Retinopathy Condition: established, stable. - Patient understands [...] to Macular Edema [facility] Work Phone: 1(371) 424-407201-14-2025 History of Present illness Narrative* Pam Stinson, ALICE-ARCHITECT [employer]AL - 11/28/2024 2:40 PM EST Images from the original note were not included. [address] [place] [id number] SUBJECTIVE: Patient ID: Cuca Dee is a 79 y.o. female. Chief Complaint Patient presents with tcm Domingo Lin Presented to the ER on November 09, 2024 with complaints of generalized fatigue and weakness for several days. Troponin was noted to be elevated.Cardiology consulted. Echocardiogram results showed normal LV and RV systolic function. She did not report chest pain. Was on plasma table operator for durationof observation. Followed up outpatient with cardiology on 11/24/24. No new changes. She was noted to have UTI. Was treated with Rocephin and discharged with cephalexin. She has been seen multiple times over the past two months for recurrent UTIs at [place] and [facility] ER. Adult Protective Services was notified at one point for concern patient may be sitting in soiled brief for se days. Patient and daughter state this has not been occurring. Last seen in ER was on 11/19/24 at [facility]. Patient thought she had another UTI. No [...] were unaware not changing adapter weekly per link cutter recommendation may be contributing to reoccurring UTI's. Is Type 2 DM, has upcoming appointment with Dr. Majano, dosimetrist next week. The following portions of the patient's history were reviewed and updated as appropriate: allergies, current medications, past family history, past medical history, past social history, past surgicalhistory and problem list. Past Surgical History: Procedure Laterality Date BREAST BIOPSY Right 03/01/2023 ULT BIOPSY CATARACT EXTRACTION SECTION SECTION 03/14/1974 EGD N/A 10/17/2019 Performed by Sarai Bell DO at [facility] H-PERCUTANEOUS CORONARY INTERVENTION HYSTEROSCOPY DILATION CURETTAGE MYOSURE N/A 01/29/2021 Performed by Jv Briones MD at [facility] INJECTION BLOCK EPIDURAL CAUDAL STEROID N/A 08/14/2022 Performed by Arnulfo Gonzalez MD at [facility] INJECTION BLOCK EPIDURAL CAUDAL STEROID N/A 06/06/2021 Performed by Arnulfo Gonzalez MD at [facility] INJECTION BLOCK EPIDURAL CAUDAL STEROID N/A 04/25/2021 Performed by Arnulfo Gonzalez MD at [facility] INJECTION CAUDAL EPIDURAL WITH CATHETER, STEROID N/A 05/03/2020 Performed by Arnulfo Gonzalez MD at [facility] INJECTION CAUDAL EPIDURAL WITH CATHETER, STEROID N/A 11/24/2019 Performed by Arnulfo Gonzalez MD at [facility] INJECTION CAUDAL EPIDURAL WITH CATHETER, STEROID N/A 04/21/2019 Performed by Arnulfo Gonzalez MD at [facility] MEDIAL BRANCH NERVE BLOCK Bilateral L 4/5, 5/1 Bilateral 08/18/2019 Performed by Arnulfo Gonzalez MD at [facility] INJECTION MEDIAL BRANCH NERVE BLOCK Bilateral L 4/5, 5/1 Bilateral 06/23/2019 Performed by Arnulfo Gonzalez MD at [facility] INJECTION STEROID EPI 1 WITH SEDATION Right L 4, 5 NR Right 03/17/2019 Performed by Arnulfo Gonzalez MD at [facility] INJECTION STEROID EPI 1 WITH SEDATION: right L45 nroot Right 08/15/2018 Performed by Arnulfo Gonzalez MD at [facility] LEFT L4, AND 5 NERVE ROOT INJECTION 2 OF 2 Left 07/22/2018 Performed by Arnulfo Gonzalez MD at [facility] LEFT L4, AND L5 NERVE ROOT 1 OF 2 Left 07/04/2018 Performed by Arnulfo Gonzalez MD at [facility] SHUNT INSERTION TONSILLECTOMY AGE 4 Transcutaneous aortic valve replacement/Transfemoral/Kwan N/A 08/17/2023 Performed by Chava Norris MD at [facility] Valvuloplasty aortic N/A 06/03/2023 Performed by Chava Norris MD at [facility] Past Medical History: Diagnosis Date Anemia Arthritis Asthma very mild, no inhaler use Cataract Dental disease Depression Diabetes mellitus ([facility]) Diabetes mellitus type 2, controlled ([facility]) Encephalitis Foot fracture, left GERD (gastroesophageal reflux disease) Heart murmur HLD (hyperlipidemia) Hypertension Incontinence Injury of back Insulin dependent diabetes mellitus Kidney failure STAGE 4 Lumbar spondylolysis Murmur Obesity CHELSEA (obstructive sleep apnea) no machine Peptic ulceration Peripheral vascular disease ([facility]) Shortness of breath Stroke ([facility]) 02/27/2024 TIA (transient ischemic attack) Upper respiratory [...] normal. ASSESSMENT/PLAN: [facility]. Diagnoses and all orders for this visit: Mixed diabetic hyperlipidemia associated with type 2 diabetes mellitus ([facility]) - atorvastatin (LIPITOR) 40 mg tablet; Take 1 tablet (40 mg total) by mouth nightly. Insomnia, unspecified type - traZODone (DESYREL) 100 mg tablet; TAKE 1 TABLET BY MOUTH EVERY DAY AT NIGHT Elevated troponin level Recurrent UTI Spoke with both patient and daughter at length today regarding frequent ER visits. Multiple trips to both [place] and [facility] ER. Primary complaints is generally for UTIs. [...] KAIDEN Werner 12/05/24 1315 [facility] History of Present illness Narrative* Radha Moran MD - 11/24/2024 2:15 PM EST Cuca Dee Date of visit: 11/24/2024 Date of : 1945 Age: 79 y.o. Patient Active Problem List Diagnosis GERD without esophagitis 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 mellitus ([facility]) PVD (peripheral vascular disease) ([facility]) Anemia, chronic disease Lumbar back pain with radiculopathy affecting left lower extremity Disc displacement, lumbar Primary osteoarthritis of both knees Lumbar spondylosis Moderate episode of recurrent major depressive disorder ([facility]) GI bleed Mixed diabetic hyperlipidemia associated with type 2 diabetes mellitus ([facility]) Murmur, cardiac Left bundle branch block Obstructive sleep apnea syndrome Cerebral ventriculomegaly Edema of lower extremity Wears dentures Normal pressure hydrocephalus ([facility]) Coronary artery disease involving [place] coronary artery of [place] heart without angina pectoris Other abnormalities of gait and mobility Essential (primary) hypertension Acute cystitis without hematuria Spinal stenosis of lumbar region with neurogenic claudication SOB (shortness of breath) History of non-ST elevation myocardial infarction (NSTEMI) History of pneumonia Elevated d-dimer Stage 3b chronic kidney disease ([facility]) Malignant neoplasm of upper-outer quadrant of right breast in female, estrogen receptor positive ([facility]) Tremors of nervous system Closed nondisplaced fracture of left pubis with routine healing Acute kidney injury superimposed on CKD ([facility]) Nonrheumatic aortic valve stenosis S/p TAVR (transcatheter aortic valve replacement), 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 ([facility]) Sepsis without acute organ dysfunction ([facility]) Depression, unspecified Difficulty in walking, not elsewhere classified Generalized muscle weakness Hypertensive heart and chronic kidney disease with heart failure and stage 1 through stage 4 chronic kidney disease, or unspecified chronic kidney disease ([facility]) Insomnia, unspecified Limitation of activities due to disability Methicillin resistant Staphylococcus aureus infection as the cause of diseases classified elsewhere Constipation, unspecified Need for assistance with personal care Obesity, unspecified Pneumonia, unspecified organism Primary generalized (osteo)arthritis Unspecified osteoarthritis, unspecified site Type 2 diabetes mellitus with diabetic chronic kidney disease ([facility] Unspecified asthma, uncomplicated Unspecified Escherichia coli (E. coli) as the cause of diseases classified elsewhere Urinary tract infectious disease Reactive airway disease with acute exacerbation Weakness Lactic acidosis Iron deficiency anemia secondary to inadequate dietary iron intake Hypomagnesemia Acute respiratory failure with hypoxia and hypercapnia ([facility]) COVID-19 virus infection Altered mental status, unspecified altered mental status type Type 2 diabetes mellitus with hypoglycemia without coma (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 lancets (Intellionetouch ultrasoft) misc Monitor blood sugars four times [...] visit. Chief Complaint Patient presents with Follow-up [facility] FU PMH ELEVATED TROPONIN History of Present [...] Cataract Dental disease Depression Diabetes mellitus ([facility]) Diabetes mellitus type 2, controlled ([facility]) Encephalitis Foot fracture, left GERD (gastroesophageal reflux disease) Heart murmur HLD (hyperlipidemia) Hypertension Incontinence Injury of back Insulin dependent diabetes mellitus Kidney failure STAGE 4 Lumbar spondylolysis Murmur Obesity CHELSEA (obstructive sleep apnea) no machine Peptic ulceration Peripheral vascular disease ([facility]) Shortness of breath Stroke ([facility]) 02/27/2024 TIA (transient ischemic attack) Upper respiratory infection UTI (urinary tract infection) Visual impairment Wears dentures No data recorded No data recorded No data recorded Past Surgical History: Procedure Laterality Date BREAST BIOPSY Right 03/01/2023 ULT BIOPSY CATARACT EXTRACTION SECTION SECTION 03/14/1974 EGD N/A 10/17/2019 Performed by Sarai Bell DO at [facility] H-PERCUTANEOUS CORONARY INTERVENTION HYSTEROSCOPY DILATION CURETTAGE MYOSURE N/A 01/29/2021 Performed by Jv Briones MD at [facility] INJECTION BLOCK EPIDURAL CAUDAL STEROID N/A 08/14/2022 Performed by Arnulfo Gonzalez MD at [facility] INJECTION BLOCK EPIDURAL CAUDAL STEROID N/A 06/06/2021 Performed by Arnulfo Gonzalez MD at [facility] INJECTION BLOCK EPIDURAL CAUDAL STEROID N/A 04/25/2021 Performed by Arnulfo Gonzalez MD at [facility] CAUDAL EPIDURAL WITH CATHETER, STEROID N/A 05/03/2020 Performed by Arnulfo Gonzalez MD at [facility] INJECTION CAUDAL EPIDURAL WITH CATHETER, STEROID N/A 11/24/2019 Performed by Arnulfo Gonzalez MD at [facility] INJECTION CAUDAL EPIDURAL WITH CATHETER, STEROID N/A 04/21/2019 Performed by Arnulfo Gonzalez MD at [facility] MEDIAL BRANCH NERVE BLOCK Bilateral L 4/5, 5/1 Bilateral 08/18/2019 Performed by Arnulfo Gonzalez MD at [facility] MEDIAL BRANCH NERVE BLOCK Bilateral L 4/5, 5/1 Bilateral 06/23/2019 Performed by Arnulfo Gonzalez MD at [facility] STEROID EPI 1 WITH SEDATION Right L 4, 5 NR Right 03/17/2019 Performed by Arnulfo Gonzalez MD at [facility] STEROID EPI 1 WITH SEDATION: right L45 nroot Right 08/15/2018 Performed by Arnulfo Gonzalez MD at [facility] LEFT L4, AND 5 NERVE ROOT INJECTION 2 OF 2 Left 07/22/2018 Performed by Arnulfo Gonzalez MD at [facility] LEFT L4, AND L5 NERVE ROOT 1 OF 2 Left 07/04/2018 Performed by Arnulfo Gonzalez MD at [facility] SHUNT INSERTION TONSILLECTOMY AGE 4 Transcutaneous aortic valve replacement/Transfemoral/Kwan N/A 08/17/2023 Performed by Chava Norris MD at [facility] Valvuloplasty aortic N/A 06/03/2023 Performed by Chava Norris MD at [facility] Family History Problem [...] 0 min Stress: Stress Concern Present (10/28/2024) [employer] - Occupational Stress Questionnaire Feeling of Stress : To some extent Social Connections: Moderately Integrated (10/28/2024) Social Connection and Isolation Panel [NHANES] Frequency of Communication with Friends and Family: Never Frequency of Social Gatherings with Friends and Family: More than three times a week Attends Synagogue Services: More than 4 times per year [...] replacement), bioprosthetic 3. Coronary artery disease involving [place] coronary artery of [place] heart without angina pectoris Recent admit for [...] Werner Referring Physician: KAIDEN Werner [address] [place] [address] documented in this encounterRockingham Memorial Hospitalpocketvillage01-09-2025 Miscellaneous Notes* Telephone Encounter - Jzazmine RHIANNA Vega - 11/23/2024 1:58 PM EST Called patient to remind them to bring their most current copy of their medication list with them to their appt. Patient verbalizes understanding. documented in this encounterSub[facility] Telephone encounter Note* Telephone Encounter - Jazzmine Vega CMA - 11/23/2024 1:58 PM EST Called patient to remind them to bring their most current copy of their medication list with them to their appt. Patient verbalizes understanding. [facility]12-30-2024 Miscellaneous Notes* Telephone Encounter - Yani Martinez - 11/13/2024 5:24 PM EST ----- Message ----- From: Irina Brunner MD Sent: 11/10/2024 7:37 AM EST To: [employer] Technician Subject: Post discharge follow-up Patient is seen at [facility]. Starting off. Need follow-up as outpatient within 3 weeks fromdischarge. Thank you * Telephone Encounter - Yani Martinez - 11/13/2024 5:24 PM EST SCHEDULED 11/24/2024 documented in this encounterSuburban [facility] Hospital & [facility]12-30-2024 Telephone encounter Note* Telephone Encounter - Yani Martinez - 11/13/2024 5:24 PM EST ----- Message ----- From: Irina Brunner MD Sent: 11/10/2024 7:37 AM EST To: [employer] Technician Subject: Post discharge follow-up Patient is seen at [facility]. Starting off. Need follow-up as outpatient within 3 weeks fromdischarge. Thank you [facility]12-30-2024 Telephone encounter Note* Telephone Encounter - Yani Martinez - 11/13/2024 5:24 PM EST SCHEDULED 11/24/2024 [facility]12-27-2024 Miscellaneous Notes* Telephone Encounter - Maddie Givens RN - 11/10/2024 8:54 AM EST [facility] called ODALIS Perkins, to ask if patient discharged with home care, will PCP cover? documented in this encounterSuburban [facility] Hospital & [facility]12-27-2024 Telephone encounter Note* Telephone Encounter - Maddie Givens RN - 11/10/2024 8:54 AM EST [facility] called ODALIS Perkins, to ask if patient discharged with home care, will PCP cover? [facility] Work Phone: [phone] Miscellaneous Notes* Telephone Encounter - Alice Morrison CMA - 09/06/2024 3:15 PM EDT [facility] called to see if you could send in nystatin ( 60g bottle) for this pt , pt has excoriated abdomen folds ,flacky red fungal odor , she did educate pt , also stated the right side is worse than the left side * Telephone Encounter - Pam Stinson APRN-BARTOLO - 09/06/2024 3:15 PM EDT done documented in this encounterSuburban Community Hospital & [facility]10-23-2024 Telephone encounter Note* Telephone Encounter - Alice Morrison CMA - 09/06/2024 3:15 PM EDT [facility] called to see if you could send in nystatin ( 60g bottle) for this pt , pt has excoriated abdomen folds ,flacky red fungal odor , she did educate pt , also stated the right side is worse than the left side [facility]-23-2024 Telephone encounter Note* Telephone Encounter - KAIDEN Werner - 09/06/2024 3:15 PM EDT done [facility]10-14-[facility]24 History of Present illness Narrative* KAIDEN [...] Discharge Specialty: Endocrine Name of Discharging Facility: [facility] Date of Facility Discharge: Admitted: 08/23/24 Discharged: 08/24/24 Date of Interactive Contact and Name of Third Mate: 08/25/24 Spoke with patient's daughterIleana Medication Review [...] the most recent facilitydischarge document. Discharged from [facility] on 08-24-24 Patient is accompanied by her daughter today. States daughter administered her insulin. Patient forgot she already received and she administered insulin as well. Subsequently, blood sugar dropped and developed altered mental status. Daughter states blood sugar did not register as it was very low. [facility] Type [...] was very low. She called the [facility] for ER transport for evaluation. Type 2 DM is managed by endocrine, Zainab Hernandez. Influenza vaccine administered today Follow up 5 months Sooner if needed KAIDEN Werner 08/28/24 0902 documented in this encounterProMedica Health [id number] Miscellaneous Notes* Telephone Encounter - Deja Mojica CMA - 08/16/2024 4:11 PM EDT Do you still need a TCM on this patient? * Telephone Encounter - KAIDEN Werner - 08/16/2024 4:11 PM EDT She currently has COVID-19. I am going to say not at this time documented in this encounterSuburban [facility]10-02-2024 Telephone encounter Note* Telephone Encounter - Deja Mojica CMA - 08/16/2024 4:11 PM EDT Do you still need a TCM on this patient? [facility]10-02-2024 Telephone encounter Note* Telephone Encounter - KAIDEN Werner - 08/16/2024 4:11 PM EDT She currently has COVID-19. I am going to say not at this time [facility]10-02-2024 Miscellaneous Notes* Telephone Encounter - Delisa [...] Acute respiratory failure with hypoxia and hypercapnia [facility] Active Problems: PVD (peripheral vascular disease) ([facility] Mixed diabetic hyperlipidemia associated with type 2 diabetes mellitus ([facility]) Obstructive sleep apnea syndrome Essential (primary) hypertension Acute cystitis without hematuria Stage 3b chronic kidney disease ([facility]) Sepsis without acute organ dysfunction ([facility]) Iron deficiency anemia secondary to inadequate dietary iron intake COVID-19 virus infection Discharge Specialty: Other *Name of Discharging Facility: [facility] Date of Facility Discharge: Admission 08/12/24 Discharge 08/14/24 Date of Interactive Contact and Name of Third Mate: 08/16/24 10:22 am Spoke to patients molina Tejeda *Medication Review Completed: No START taking: amoxicillin-pot clavulanate (AUGMENTIN) predniSONE (DELTASONE) Medication Reconciliation Questions/Concerns: -Reviewed discharge changes to medications -Declines medications review -Patients daughter picked up medications and patient started taking as prescribed -Denies questions or concerns *Follow Up Appointments with Providers: Primary: Pam Stinson APRN-ARCHITECT [employer] Specialty: Specialty: Specialty: Review of Pending Lab/Diagnostic [...] pass on this one. documented in this encounterProMediTPI Composites [facility] [id number] Telephone encounter Note* Telephone Encounter - Delisa [...] Acute respiratory failure with hypoxia and hypercapnia ([facility] Active Problems: PVD (peripheral vascular disease) ([facility]) Mixed diabetic hyperlipidemia associated with type 2 diabetes mellitus ([facility]) Obstructive sleep apnea syndrome Essential (primary) hypertension Acute cystitis without hematuria Stage 3b chronic kidney disease ([facility]) Sepsis without acute organ dysfunction ([facility]) Iron deficiency anemia secondary to inadequate dietary iron intake COVID-19 virus infection Discharge Specialty: Other *Name of Discharging Facility: [facility] Date of Facility Discharge: Admission 08/12/24 Discharge 08/14/24 Date of Interactive Contact and Name of Third Mate: 08/16/24 10:22 am Spoke to patients molina Tejeda *Medication Review Completed: No START taking: amoxicillin-pot clavulanate (AUGMENTIN) predniSONE (DELTASONE) Medication Reconciliation Questions/Concerns: -Reviewed discharge changes to medications -Declines medications review -Patients daughter picked up medications and patient started taking as prescribed -Denies questions or concerns *Follow Up Appointments with Providers: Primary: Pam Stinson APRN-ARCH[employer]ECT [employer] Specialty: Specialty: Specialty: Review of Pending Lab/Diagnostic [...] Other Services Utilized/Needed by the Patient: NA [employer]10-02-2024 Telephone encounter Note* Telephone Encounter - Deja Mojica CMA - 08/16/2024 10:13 AM EDT Patient currently has COVID so she will pass on this one. [employer]08-07-2024 History of Present illness Narrative* KAIDEN Werner [...] Discharge Specialty: Pulmonology Name of Discharging Facility: [facility] Date of Facility Discharge: Admitted; 06/13/24 Discharged: 06/15/24 Date of Interactive Contact and Name of Third Mate: 06/16/24 @ 943 am: no answer, left message to return call 06/16/24 @ 151 pm: no answer Medication Review Completed: Pending provider review START taking: albuterol (PROVENTIL,VENTOLIN) doxycycline (MONODOX) fluticasone propion-salmeteroL (ADVAIR) guaiFENesin (MUCINEX) predniSONE (DELTASONE) STOP taking: hydroCHLOROthiazide 25 mg tablet (HYDRODIURIL) Medication Reconciliation Questions/Concerns: Follow Up Appointments with Providers: Primary: LISA WernerARCHITECT NAVAL: 06/21/24 Review of Pending Lab/Diagnostic Tests and Plan for Completion: Assessment and Support of Treatment Regimen Adherence and Medication Management: Education Provided by ACN to Support Self-Management, Independent Living and ADLs: Communication with Home Health Agencies and Other Services Utilized/Needed by the Patient: [facility] Presents today for transitional care follow up. Is accompanied by her daughter today. Was discharged from [facility] on 2024. Onset of initial symptoms started [...] airway disease with acute exacerbation Currently has [facility] home care in the home. Receiving PT for strengthen. Follow up July KAIDEN Werner 06/28/24 2465 documented in this encounterSuburban [facility] Hospital [facility]06-19-2024 History of Present illness Narrative* KAIDEN Werner - 05/03/2024 2:40 PM EDT Subjective Patient ID: Cuca Dee is a 78 y.o. female. The patient is here today for discharge follow up from post acute facility. Transition of Care Med Rec completed? Yes Discharged medications: Medications have been reviewed and reconciled with the most recent facilitydischarge document. Went to [facility] on April 06, 2024 after one day of not feeling well. Daughter called EMS. Was noted to have oxygen sats in the 80's. Subsequently was admitted for pneumonia bilateral lower lobes. After discharge, she recovered at [facility]. Was discharged on Sunday, April 28, 2024.She returned to home, resides with daughter and grandson. No medication changes. Today, she feels she is almost at her normal baseline. Does feel slightly weaker than prior to admission. Uses rolling walker for ambulation. She is scheduled for home care with PT / OT tomorrow. [facility]. The following portions of the patient's [...] Cuca was seen today for discharge / [facility]. Diagnoses and all orders for this visit: Pneumonia due to other specified organism Discharged to home, prior setting with daughter and grandson. She offers no complaints. Feels she has returned back to her normal baseline, states just slightly weaker. Will be having [facility] starting tomorrow; home care, PT / OT Lungs clear through out. Oxygen saturation at room air 94% today. Follow up July KAIDEN Werner 05/03/24 1521 documented in this encounterCleveland Clinic Akron GeneralCerenis Therapeutics [id number] History of Present illness Narrative* Rosario Strong RN - 03/09/2024 3:38 PM EDT Patient is here for follow up with Dr. Muñoz. Orders received for B/l mammogram is due. F/u in 6 months, CBC, CMP. Patient given calendar, verbalized understanding of future appointments. documented in this encounterCleveland Clinic Akron GeneralCerenis Therapeutics [id number] History of Present illness Narrative* Casimiro Muñoz MD - 03/09/2024 3:15 PM EDT Images from the original note were not included. [facility] 03/09/24 Cuca Dee is a 78 y.o. year old female seen today in the oncology clinic. Chief Complaint Patient presents with Follow-up History of Present Illness: Mrs. Dee is a 78 y.o. female with history of aortic valve stenosis, she had PCI earlier in the year at [facility] for coronary disease. during the cardiac [...] mammary carcinoma, grade 2, ER strongly positive MO moderately positive and [id number]. There was also suspicious spine lesion, MRI [...] Cataract Dental disease Depression Diabetes mellitus ([facility]) Diabetes mellitus type 2, controlled ([facility]) Encephalitis Foot fracture, left GERD (gastroesophageal reflux disease) Heart murmur HLD (hyperlipidemia) Hypertension Incontinence Injury of back Insulin dependent diabetes mellitus Kidney failure STAGE 4 Lumbar spondylolysis Murmur Obesity CHELSEA (obstructive sleep apnea) no machine Peptic ulceration Peripheral vascular disease ([facility]) Shortness of breath Stroke ([facility]) 02/27/2024 TIA (transient ischemic attack) Upper respiratory infection UTI (urinary tract infection) Visual impairment Wears dentures Past Surgical History: Procedure Laterality Date BREAST BIOPSY Right 03/01/2023 ULT BIOPSY CATARACT EXTRACTION SECTION SECTION 03/14/1974 EGD N/A 10/17/2019 Performed by Sarai Bell DO at [facility] HYSTEROSCOPY DILATION CURETTAGE MYOSURE N/A 01/29/2021 Performed by Jv Briones MD at [facility] INJECTION BLOCK EPIDURAL CAUDAL STEROID N/A 08/14/2022 Performed by Arnulfo Gonzalez MD at [facility] INJECTION BLOCK EPIDURAL CAUDAL STEROID N/A 06/06/2021 Performed by Arnulfo Gonzalez MD at [facility] INJECTION BLOCK EPIDURAL CAUDAL STEROID N/A 04/25/2021 Performed by Arnulfo Gonzalez MD at [facility] INJECTION CAUDAL EPIDURAL WITH CATHETER, STEROID N/A 05/03/2020 Performed by Arnulfo Gonzalez MD at [facility] INJECTION CAUDAL EPIDURAL WITH CATHETER, STEROID N/A 11/24/2019 Performed by Arnulfo Gonzalez MD at [facility] INJECTION CAUDAL EPIDURAL WITH CATHETER, STEROID N/A 04/21/2019 Performed by Arnulfo Gonzalez MD at [facility] MEDIAL BRANCH NERVE BLOCK Bilateral L 4/5, 5/1 Bilateral 08/18/2019 Performed by Arnulfo Gonzalez MD at [facility] INJECTION MEDIAL BRANCH NERVE BLOCK Bilateral L 4/5, 5/1 Bilateral 06/23/2019 Performed by Arnulfo Gonzalez MD at [facility] INJECTION STEROID EPI 1 WITH SEDATION Right L 4, 5 NR Right 03/17/2019 Performed by Arnulfo Gonzalez MD at [facility] INJECTION STEROID EPI 1 WITH SEDATION: right L45 nroot Right 08/15/2018 Performed by Arnulfo Gonzalez MD at [facility] LEFT L4, AND 5 NERVE ROOT INJECTION 2 OF 2 Left 07/22/2018 Performed by Arnulfo Gonzalez MD at [facility] LEFT L4, AND L5 NERVE ROOT 1 OF 2 Left 07/04/2018 Performed by Arnulfo Gonzalez MD at [facility] PERCUTANEOUS CORONARY INTERVENTION SHUNT INSERTION TONSILLECTOMY AGE 4 Transcutaneous aortic valve replacement/Transfemoral/Kwan N/A 08/17/2023 Performed by Chava Norris MD at [facility] Valvuloplasty aortic N/A 06/03/2023 Performed by Chava Norris MD at [facility] Family History Problem [...] min Stress: No Stress Concern Present (10/05/2022) [employer] of Occupational Health - Occupational Stress Questionnaire Feeling of Stress : Not at all Social Connections: Moderately Isolated (10/05/2022) Social Connection and Isolation Panel [NHANES] Frequency of Communication with Friends and Family: Never Frequency of Social Gatherings with Friends and Family: Never Attends Synagogue Services: More than 4 times per year Active Member of Clubs or Organizations: Yes Attends Club or Organization Meetings: More than 4 times per year Marital Status: Never [facility] [place] Safety & Environment Housing Instability: Low [...] without long-term current use of insulin ([facility]) Signed by: KAIDEN Santana Monitor blood sugars four times daily and as needed clopidogreL 75 mg tablet Refills: 0 Dose: 75 mg Commonly known as: PLAVIX gabapentin 300 mg capsule Quantity: 180 capsule Refills: 1 Doctor's comments: 90 Day Supply with one refill For diagnoses: 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 mellitus ([facility]) Dose: 300 mg Signed by: KAIDEN Santana 300 mg, oral, 2 times daily Commonly known as: NEURONTIN hydroCHLOROthiazide 25 mg tablet Refills: 0 Dose: 25 mg Commonly known as: HYDRODIURIL * lancets misc Quantity: 200 each Refills: 0 Doctor's comments: Whatever covered by insurance For diagnoses: Controlled type 2 diabetes mellitus with diabetic nephropathy, without long-term current use of insulin ([facility]) Signed by: KAIDEN Santana Monitor blood sugars four times daily and as needed Commonly known as: onetouch ultrasoft * ONETOUCH DELICA PLUS LANCET 33 gauge misc Refills: 0 Generic drug: lancets letrozole 2.5 mg chemo tablet Quantity: 90 tablet Refills: 3 For diagnoses: Malignant neoplasm of upper-outer quadrant of right female breast, unspecified estrogen receptor status ([facility]) Signed by: Dr. Casimiro Muñoz MD TAKE [...] in partial remission, unspecified whether recurrent ([facility]) Dose: 100 mg Signed by: KAIDEN Santana [...] to ensure the accuracy of this automated rush seater, some errors in rush seater may have occurred. CC: Patient Care Team: KAIDEN Werner as PCP - General (Family Medicine) John Quiles MD (Nephrology) KAIDEN Hsu as Nurse Practitioner (Pulmonary Medicine) Madison Ye MD as Referring Physician (Endocrinology, Diabetes & Metabolism) Casimiro Muñoz MD as Consulting Physician (Hematology) PCP:Pam Stinson Referring MD: Pam Stinson AP* documented in this encounterSuburban Community Hospital & [facility]04-25-2024 Instructions* Patient Instructions* Casimiro Muñoz MD - 03/09/2024 3:15 PM EDT B/l mammogram is due. F/u in 6 months, CBC, CMP. documented in this encounterSuburban Community Hospital & [facility]04-15-2024 Miscellaneous Notes* Telephone Encounter - Maria Del Carmen Holland RN - 02/28/2024 3:24 PM EDT ----- Message from RONNA Melissa sent at 02/28/2024 3:07 PM EDT ----- Regarding: FW: Geetha DINERO Jorge A Joyce! I just got called again from [place]. They were contacted by [facility] and patient does NOT have an order for MRI Brain. She only has the order for CT brain. So I placed a STAT MRI Brain w and wo order for patient to get imaging done at [facility] in next 1-2 weeks. I'm not sure the best way to get this order recognized by [facility] system. Do we need to fax it? Can they see the order in [employer]'s system? Just let mw know if I need to do something different. TIA!!! ----- Message ----- From: RONNA Melissa Sent: 02/28/2024 1:29 PM EDT To: [facility] Stroke Scheduling; [facility] Stroke Oil Heat Technician Subject: [place] FU We suspect a small brainstem stroke on this lady but unfortunately she cannot complete her MRI at [place]. 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 Dr. [place] advised the followin. Check P2Y12- I already placed an order in [facility]. This can be done when she goes to [facility]. 2. Expedite MRI Brain. This was scheduled to be done at [facility] on 03/19. Dr. Martell would like it done in the next 1-2 weeks. We can revise the established order if needed. Cuca will need FU in Stroke clinic in 4-6 weeks. (Likely after her 03/19/25 appt). She can see Jayshree Oliver or fellow. Note some of her records are in [facility]. We will need to decide about doubling dose of Plavix vs transition to brilinta pending MRI and P2Y12 testing. Thanks! * Telephone Encounter - Maria Del Carmen Holland RN - 02/28/2024 3:24 PM EDT Faxed MRI brain order to [facility]. Will check tomorrow that they received it. Also faxed order for P2Y12 to [place] lab * Telephone Encounter - Kristy Contreras - 02/28/2024 3:24 PM EDT Received call today 02/29/24 9:10 from [facility] Radiology who stated that patient's MR Brain with and without contrast was denied and will need a prior auth before they can schedule for patient. * Telephone Encounter - Maria Del Carmen Holland RN - 02/28/2024 3:24 PM EDT Sent hospital note to [place] to use for prior authorization. * Telephone Encounter - Maria Del Carmen Holland RN - 02/28/2024 3:24 PM EDT Sched for 03/16 * Telephone Encounter - Maria Del Carmen Holland RN - 02/28/2024 3:24 PM EDT MR moved to 04/19 * Telephone Encounter - Teena Quinonez CMA - 02/28/2024 3:24 PM EDT Called [facility] and caller stated Pt is scheduled for Wednesday 04/25 for MRI. * Telephone Encounter - Teena Quinonez CMA - 02/28/2024 3:24 PM EDT Called [facility] to retrieve imaging. Caller stated [...] drawn? Order was already faxed over to [place] lab. * Telephone Encounter - Teena Quinonez CMA - 02/28/2024 3:24 PM EDT Called [facility] for MRI to be pushed via PACS. Should be available shortly. Called Pt's daughter per pending lab order. Daughter stated they were unaware of this and will get it completed. * Telephone Encounter - Kristy Hernandez - 02/28/2024 3:24 PM EDT Spoke with Ileana and made an appt documented in [facility] Telephone encounter Note* Telephone Encounter - Maria Del Carmen Holland RN - 02/28/2024 3:24 PM EDT ----- Message from RONNA Melissa sent at 02/28/2024 3:07 PM EDT ----- Regarding: FW: Geetha FU Jorge A Joyce! I just got called again from [place]. They were contacted by [facility] and patient does NOT have an order for MRI Brain. She only has the order for CT brain. So I placed a STAT MRI Brain w and wo order for patient to get imaging done at [facility] in next 1-2 weeks. I'm not sure the best way to get this order recognized by [facility] system. Do we need to fax it? Can they see the order in [employer]'s system? Just let mw know if I need to do something different. TIA!!! ----- Message ----- From: RONNA Melissa Sent: 02/28/2024 1:29 PM EDT To: [facility] Stroke Scheduling; [facility] Stroke Oil Heat Technician Subject: [place] FU We suspect a small brainstem stroke on this lady but unfortunately she cannot complete her MRI at [place]. 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 Dr. [place]ell advised the followin. Check P2Y12- I already placed an order in [facility]. This can be done when she goes to [facility]. 2. Expedite MRI Brain. This was scheduled to be done at [facility] on 03/19. Dr. Martell would like it done in the next 1-2 weeks. We can revise the established order if needed. Cuca will need FU in Stroke clinic in 4-6 weeks. (Likely after her 03/19/25 appt). She can see Jayshree Oliver or fellow. Note some of her records are in [facility]. We will need to decide about doubling dose of Plavix vs transition to brilinta pending MRI and P2Y12 testing. Thanks! [employer]04-15-2024 Telephone encounter Note* Telephone Encounter - Maria Del Carmen Holland RN - 02/28/2024 3:24 PM EDT Faxed MRI brain order to [facility]. Will check tomorrow that they received it. Also faxed order for P2Y12 to [place] lab [facility] Qiro [id number] Telephone encounter Note* Telephone Encounter - Kristy Contreras - 02/28/2024 3:24 PM EDT Received call today 02/29/24 9:10 from [facility] Radiology who stated that patient's MR Brain with and without contrast was denied and will need a prior auth before they can schedule for patient. [facility] Qiro [id number] Telephone encounter Note* Telephone Encounter - Maria Del Carmen Holland RN - 02/28/2024 3:24 PM EDT Sent hospital note to [place] to use for prior authorization. [facility] Qiro [id number] Telephone encounter Note* Telephone Encounter - Maria Del Carmen Holland RN - 02/28/2024 3:24 PM EDT Sched for 5/2 [facility] Qiro [id number] Telephone encounter Note* Telephone Encounter - Maria Del Carmen Holland RN - 02/28/2024 3:24 PM EDT MR moved to 6/5 [facility] Qiro [id number] Telephone encounter Note* Telephone Encounter - Teena Quinonez CMA - 02/28/2024 3:24 PM EDT Called [facility] and caller stated Pt is scheduled for Wednesday 04/25 for MRI. [facility] Qiro [id number] Telephone encounter Note* Telephone Encounter - Teena Quinonez CMA - 02/28/2024 3:24 PM EDT Called [facility] to retrieve imaging. Caller stated it is rescheduled for 05/23/24. Postponed message till the date above. [facility] Qiro [id number] Telephone encounter Note* Telephone Encounter - Alayna Martel RN - 02/28/2024 3:24 PM EDT Call we have imaging pushed to PACs for review, also can we call patient and remind or ask if she had the P2Y12 lab that needs to be drawn? Order was already faxed over to [place] lab. [facility] Qiro [id number] Telephone encounter Note* Telephone Encounter - Teena Quinonez CMA - 02/28/2024 3:24 PM EDT Called [facility] for MRI to be pushed via PACS. Should be available shortly. Called Pt's daughter per pending lab order. Daughter stated they were unaware of this and will get it completed. [facility] Qiro [id number] Telephone encounter Note* Telephone Encounter - Kristy Hernandez - 02/28/2024 3:24 PM EDT Spoke with Ileana and made an appt [facility] Qiro [id number] History of Present illness Narrative* Pam Stinson APRN-BARTOLO - 02/09/2024 1:00 PM EDT Images from the original note were [place] [id number] SUBJECTIVE: Patient ID: Cuca Dee is a 78 y.o. female. Chief Complaint Patient presents with incontinence Accompanied by daughter today Urine is cloudy, increased incontinence. Concerns for reoccurrence of UTI. Patient [facility]23 for UTI. Uses Purewick [...] 10/17/2019 Performed by Sarai Bell DO at [facility] HYSTEROSCOPY DILATION CURETTAGE MYOSURE N/A 01/29/2021 Performed by Jv Briones MD at [facility] INJECTION BLOCK EPIDURAL CAUDAL STEROID N/A 08/14/2022 Performed by Arnulfo Gonzalez MD at [facility] INJECTION BLOCK EPIDURAL CAUDAL STEROID N/A 06/06/2021 Performed by Arnulfo Gonzalez MD at [facility] INJECTION BLOCK EPIDURAL CAUDAL STEROID N/A 04/25/2021 Performed by Arnulfo Gonzalez MD at [facility] CAUDAL EPIDURAL WITH CATHETER, STEROID N/A 05/03/2020 Performed by Arnulfo Gonzalez MD at [facility] CAUDAL EPIDURAL WITH CATHETER, STEROID N/A 11/24/2019 Performed by Arnulfo Gonzalez MD at [facility] CAUDAL EPIDURAL WITH CATHETER, STEROID N/A 04/21/2019 Performed by Arnulfo Gonzalez MD at [facility] MEDIAL BRANCH NERVE BLOCK Bilateral L 4/5, 5/1 Bilateral 08/18/2019 Performed by Arnulfo Gonzalez MD at [facility] INJECTION MEDIAL BRANCH NERVE BLOCK Bilateral L 4/5, 5/1 Bilateral 06/23/2019 Performed by Arnulfo Gonzalez MD at [facility] INJECTION STEROID EPI 1 WITH SEDATION Right L 4, 5 NR Right 03/17/2019 Performed by Arnulfo Gonzalez MD at [facility] INJECTION STEROID EPI 1 WITH SEDATION: right L45 nroot Right 08/15/2018 Performed by Arnulfo Gonzalez MD at [facility] LEFT L4, AND 5 NERVE ROOT INJECTION 2 OF 2 Left 07/22/2018 Performed by Arnulfo Gonzalez MD at [facility] LEFT L4, AND L5 NERVE ROOT 1 OF 2 Left 07/04/2018 Performed by Arnulfo Gonzalez MD at [facility] PERCUTANEOUS CORONARY INTERVENTION SHUNT INSERTION TONSILLECTOMY AGE 4 Transcutaneous aortic valve replacement/Transfemoral/Kwan N/A 08/17/2023 Performed by Chava Norris MD at [facility] Valvuloplasty aortic N/A 06/03/2023 Performed by Chava Norris MD at [facility] Past Medical History: Diagnosis Date Anemia Arthritis Asthma very mild, no inhaler use Cataract Dental disease Depression Diabetes mellitus ([facility] Diabetes mellitus type 2, controlled ([facility]) Encephalitis Foot fracture, left GERD (gastroesophageal reflux disease) Heart murmur HLD (hyperlipidemia) Hypertension Incontinence Injury of back Insulin dependent diabetes mellitus Kidney failure STAGE 4 Lumbar spondylolysis Murmur Obesity CHELSEA (obstructive sleep apnea) no machine Peptic ulceration Peripheral vascular disease ([facility]) Shortness of breath TIA (transient ischemic attack) [...] KAIDEN Werner 02/09/24 1420 documented in this encounterSub[facility]-2024 History of Present illness Narrative* KAIDEN Werner - 12/15/2023 3:00 PM EST Images from the original note were not included. [address] [place] [facility] [id number] SUBJECTIVE: Patient ID: Cuca Dee is a [...] 10/17/2019 Performed by Sarai Bell DO at [facility] HYSTEROSCOPY DILATION CURETTAGE MYOSURE N/A 01/29/2021 Performed by Jv Briones MD at [facility] INJECTION BLOCK EPIDURAL CAUDAL STEROID N/A 08/14/2022 Performed by Arnulfo Gonzalez MD at [facility] INJECTION BLOCK EPIDURAL CAUDAL STEROID N/A 06/06/2021 Performed by Arnulfo Gonzalez MD at [facility] INJECTION BLOCK EPIDURAL CAUDAL STEROID N/A 04/25/2021 Performed by Arnulfo Gonzalez MD at [facility] CAUDAL EPIDURAL WITH CATHETER, STEROID N/A 05/03/2020 Performed by Arnulfo Gonzalez MD at [facility] INJECTION CAUDAL EPIDURAL WITH CATHETER, STEROID N/A 11/24/2019 Performed by Arnulfo Gonzalez MD at [facility] IN[facility] CAUDAL EPIDURAL WITH CATHETER, STEROID N/A 04/21/2019 Performed by Arnulfo Gonzalez MD at [facility] MEDIAL BRANCH NERVE BLOCK Bilateral L 4/5, 5/1 Bilateral 08/18/2019 Performed by Arnulfo Gonzalez MD at [facility] MEDIAL BRANCH NERVE BLOCK Bilateral L 4/5, 5/1 Bilateral 06/23/2019 Performed by Arnulfo Gonzalez MD at [facility] STEROID EPI 1 WITH SEDATION Right L 4, 5 NR Right 03/17/2019 Performed by Arnulfo Gonzalez MD at [facility] INJECTION STEROID EPI 1 WITH SEDATION: right L45 nroot Right 08/15/2018 Performed by Arnulfo Gonzalez MD at [facility] LEFT L4, AND 5 NERVE ROOT INJECTION 2 OF 2 Left 07/22/2018 Performed by Arnulfo Gonzalez MD at [facility] LEFT L4, AND L5 NERVE ROOT 1 OF 2 Left 07/04/2018 Performed by Arnulfo Gonzalez MD at [facility] PERCUTANEOUS CORONARY INTERVENTION SHUNT INSERTION TONSILLECTOMY AGE 4 Transcutaneous aortic valve replacement/Transfemoral/Kwan N/A 08/17/2023 Performed by Chava Norris MD at [facility] Valvuloplasty aortic N/A 06/03/2023 Performed by Chava Norris MD at [facility] Past Medical History: Diagnosis Date Anemia Arthritis Asthma very mild, no inhaler use Cataract Dental disease Depression Diabetes mellitus ([facility]) Diabetes mellitus type 2, controlled ([facility]) Encephalitis Foot fracture, left GERD (gastroesophageal reflux disease) Heart murmur HLD (hyperlipidemia) Hypertension Incontinence Injury of back Insulin dependent diabetes mellitus Kidney failure STAGE 4 Lumbar spondylolysis Murmur Obesity CHELSEA (obstructive sleep apnea) no machine Peptic ulceration Peripheral vascular disease ([facility]) Shortness of breath TIA (transient ischemic attack) [...] (cough and congestion). Normal pressure hydrocephalus ([facility]) Moderate episode of recurrent major depressive disorder ([facility]) PVD (peripheral vascular disease) ([facility]) 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 mellitus ([facility]) - gabapentin (NEURONTIN) 300 mg capsule; Take 1 capsule (300 mg total) by mouth in the morning and 1 capsule (300 mg total) before bedtime. Stage 3b chronic kidney disease ([facility]) Major depressive disorder in partial remission, unspecified whether recurrent ([facility]) - sertraline (ZOLOFT) 100 mg tablet; Take [...] 3b chronic kidney disease and hypertension ([facility]) - SITagliptin phosphate (JANUVIA) 50 mg tablet; Take 1 tablet (50 mg total) by mouth in the morning. Type 2 DM -Managed by endocrine in [place] She believes her A1c is below 7% [...] needed for sore throat. Tylenolas needed per link cutter guidelines for fever or pain. Body mass [...] KAIDEN Werner 12/15/23 1559 documented in this encounterSub[facility]01-[facility] History of Present illness Narrative* Casimiro Muñoz MD - 11/25/2023 2:30 PM EST Images from the original note were not included. [facility] 11/25/23 Cuca Dee is a 78 y.o. year old female seen today in the oncology clinic. Chief Complaint Patient presents with Follow-up History of Present Illness: Mrs. Dee is a 78 y.o. female with history of aortic valve stenosis, she had PCI earlier in the year at [facility] for coronary disease. during the cardiac [...] mammary carcinoma, grade 2, ER strongly positive MO moderately positive and [id number]. There was also suspicious spine lesion, MRI [...] Cataract Dental disease Depression Diabetes mellitus ([facility]) Diabetes mellitus type 2, controlled ([facility]) Encephalitis Foot fracture, left GERD (gastroesophageal reflux disease) Heart murmur HLD (hyperlipidemia) Hypertension Incontinence Injury of back Insulin dependent diabetes mellitus Kidney failure STAGE 4 Lumbar spondylolysis Murmur Obesity CHELSEA (obstructive sleep apnea) no machine Peptic ulceration Peripheral vascular disease ([facility]) Shortness of breath TIA (transient ischemic attack) Upper respiratory infection UTI (urinary tract infection) Visual impairment Wears dentures Past Surgical History: Procedure Laterality Date BREAST BIOPSY Right 03/01/2023 ULT BIOPSY CATARACT EXTRACTION SECTION SECTION 03/14/1974 EGD N/A 10/17/2019 Performed by Sarai Bell DO at [facility] HYSTEROSCOPY DILATION CURETTAGE MYOSURE N/A 01/29/2021 Performed by Jv Briones MD at [facility] INJECTION BLOCK EPIDURAL CAUDAL STEROID N/A 08/14/2022 Performed by Arnulfo Gonzalez MD at [facility] INJECTION BLOCK EPIDURAL CAUDAL STEROID N/A 06/06/2021 Performed by Arnulfo Gonzalez MD at [facility] INJECTION BLOCK EPIDURAL CAUDAL STEROID N/A 04/25/2021 Performed by Arnulfo Gonzalez MD at [facility] CAUDAL EPIDURAL WITH CATHETER, STEROID N/A 05/03/2020 Performed by Arnulfo Gonzalez MD at [facility] IN[facility] CAUDAL EPIDURAL WITH CATHETER, STEROID N/A 11/24/2019 Performed by Arnulfo Gonzalez MD at [facility] IN[facility] CAUDAL EPIDURAL WITH CATHETER, STEROID N/A 04/21/2019 Performed by Arnulfo Gonzalez MD at [facility] MEDIAL BRANCH NERVE BLOCK Bilateral L 4/5, 5/1 Bilateral 08/18/2019 Performed by Arnulfo Gonzalez MD at [facility] MEDIAL BRANCH NERVE BLOCK Bilateral L 4/5, 5/1 Bilateral 06/23/2019 Performed by Arnulfo Gonzalez MD at [facility] IN[facility] STEROID EPI 1 WITH SEDATION Right L 4, 5 NR Right 03/17/2019 Performed by Arnulfo Gonzalez MD at [facility] INJECTION STEROID EPI 1 WITH SEDATION: right L45 nroot Right 08/15/2018 Performed by Arnulfo Gonzalez MD at [facility] LEFT L4, AND 5 NERVE ROOT INJECTION 2 OF 2 Left 07/22/2018 Performed by Arnulfo Gonzalez MD at [facility] LEFT L4, AND L5 NERVE ROOT 1 OF 2 Left 07/04/2018 Performed by Arnulfo Gonzalez MD at [facility] PERCUTANEOUS CORONARY INTERVENTION SHUNT INSERTION TONSILLECTOMY AGE 4 Transcutaneous aortic valve replacement/Transfemoral/Kwan N/A 08/17/2023 Performed by Chava Norris MD at [facility] Valvuloplasty aortic N/A 06/03/2023 Performed by Chava Norris MD at [facility] Family History Problem [...] min Stress: No Stress Concern Present (10/05/2022) [employer] - Occupational Stress Questionnaire Feeling of Stress : Not at all Social Connections: Moderately Isolated (10/05/2022) Social Connection and Isolation Panel [NHANES] Frequency of Communication with Friends and Family: Never Frequency of Social Gatherings with Friends and Family: Never Attends Synagogue Services: More than 4 times per year [...] without long-term current use of insulin ([facility]) Signed by: KAIDEN Santana Monitor blood sugars four times daily and as needed clopidogreL 75 mg tablet Refills: 0 Dose: 75 mg Commonly known as: PLAVIX COMFORT EZ PEN NEEDLES 32 gauge x 5/16 needle Quantity: 200 each Refills: 6 For diagnoses: Type 2 diabetes mellitus with stage 4 chronic kidney disease, with long-term currentuse of insulin ([facility]) Dose: 4 applicator Signed by: KAIDEN Santana 4 applicators, miscellaneous, See admin instructions, 4 times daily injection Generic drug: pen needle, diabetic DEXCOM G6 LINING IRONER misc Refills: 0 Dose: 1 Device Generic drug: blood-glucose meter,continuous DEXCOM G6 SENSOR device Refills: 0 Generic drug: blood-glucose sensor gabapentin 300 mg capsule Quantity: 180 capsule Refills: 1 Doctor's comments: 90 Day Supply. 1 refill For diagnoses: 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 mellitus ([facility]) Dose: 300 mg Signed by: KAIDEN Santana 300 mg, oral, 2 times daily Commonly known as: NEURONTIN hydroCHLOROthiazide 25 mg tablet Refills: 0 Dose: 25 mg Commonly known as: HYDRODIURIL insulin lispro 100 unit/mL insulin pen Refills: 0 For diagnoses: Mixed diabetic hyperlipidemia associated with type 2 diabetes mellitus ([facility]) Dose: 2 Units Signed by: RONNA Solis [...] without long-term current use of insulin ([facility]) Signed by: KAIDEN Santana Monitor blood sugars four times daily and as needed Commonly known as: onetouch ultrasoft * ONETOUCH DELICA PLUS LANCET 33 gauge misc Refills: 0 Generic drug: lancets letrozole 2.5 mg chemo tablet Quantity: 90 tablet Refills: 3 For diagnoses: Malignant neoplasm of upper-outer quadrant of right female breast, unspecified estrogen receptor status ([facility]) Dose: 2.5 mg Signed by: Dr. Casimiro Muñoz MD 2.5 mg, oral, Daily Commonly known as: FEMARA LEVEMIR FLEXPEN 100 unit/mL (3 mL) insulin pen Quantity: 30 mL Refills: 3 For diagnoses: Controlled type 2 diabetes mellitus with diabetic nephropathy, without long-term current use of insulin ([facility]) Signed by: KAIDEN Santana INJECT 30 UNITS UNDER THE SKIN NIGHTLY Generic drug: insulin detemir U-100 metoprolol succinate XL 25 mg 24 hr tablet Quantity: 90 tablet Refills: 2 For diagnoses: Essential hypertension, Athscl heart disease of [place] coronary artery w/o ang pctrs Dose: 25 [...] Dose: 4 mg Signed by: Dr. Giovanny Penny DO 4 mg, oral, Every 8 hours PRN Commonly known as: ZOFRAN ODT pantoprazole 40 mg EC tablet Quantity: 90 tablet Refills: 1 For diagnoses: GERD without esophagitis Dose: 40 mg Signed by: LISA SantanaARCHITECT NAVAL 40 mg, oral, Daily Commonly known as: PROTONIX sertraline 100 mg tablet Quantity: 90 tablet Refills: 1 For diagnoses: Major depressive disorder in partial remission, unspecified whether recurrent ([facility] Dose: 100 mg Signed by: KAIDEN Santana 100 mg, oral, Daily Commonly known as: ZOLOFT SITagliptin phosphate 50 mg tablet Quantity: 90 tablet Refills: 1 For diagnoses: Diabetes mellitus type 2, insulin dependent ([facility]), Type 2 diabetes mellitus withstage 3b chronic kidney disease and hypertension ([facility]) Dose: 50 mg Signed by: KAIDEN Santana [...] this note were generated using voice recognition [employer] dictation software. Although every effort was made to ensure the accuracy of this automated rush seater, some errors in rush seater may have occurred. CC: Patient Care Team: KAIDEN Werner as PCP - General (Family Medicine) John Quiles MD (Nephrology) KAIDEN Hsu as Nurse Practitioner (Pulmonary Medicine) Madison Ye MD as Referring Physician (Endocrinology, Diabetes & Metabolism) Casimiro Muñoz MD as Consulting Physician (Hematology) PCP:Pam Stinson Referring MD: Pam Stinson AP* documented in this encounterSub[facility]01-11-[facility] Instructions* Patient Instructions* Casimiro Muñoz MD - 11/25/2023 2:30 PM EST Pet SCAN 02/2024. F/u in late 02/2024 to review results. Continue femara alone. Labs before appt: CBC, CMP, CA 15-3, CA 27.29. documented in this encounterC[facility] GeneralT[facility] [id number] History of Present illness Narrative* Rosario Strong RN - 11/25/2023 2:16 PM EST Patient is here for follow up with Dr. Muñoz. Orders received for pet ct in February with cbc cmp ca 15-3 and ca27-29. Follow up scheduled in late February. Patient given calendar, verbalized understanding of future appointments. [facility] History of Present illness Narrative* Stefanie Lu RN - 12/11/2022 11:07 AM EST Patient discharged home. Discharge instructions were explained and given to the patient, patient verbalized understanding. All belongings were sent with the patient. No signs of acute distress noted,no concerns voiced. * Sasha Maldonado, PT - 12/10/2022 11:46 AM EST Physical Therapy Facility/Department[facility] [address] [facility] Name: Cuca Dee : 1945 [...] Out 1000 Minutes 25 Sasha Maldonado PT * Tiffany Casillas, SHOW HOST - 12/09/2022 1:06 PM EST Physical Therapy Facility/Department: [address] [facility] Daily Treatment Note NAME: Cuca [...] CASILLAS PTA * Radha Moya APRN - [employer]CH[employer]ECT [employer] - 12/09/2022 11:13 AM EST Images from the original note were not included. [place] Transformer Inspector Progress Note Date: 12/09/2022 Patient name: Cuca [...] 4.4 4.1 CL 110* 106 106 CO2 21 BUN 19 CREATININE 1.43* 1.33* 1.33* [...] a max pressure of: 10 graciela. [place] 2.5 x 12 CÉSAR. 1 inflation(s) to [...] a max pressure of: 12 graciela. [place] 3.0 x 12 CÉSAR. 1 inflation(s) to [...] 182 cm. Number of passes: 1. [place] 2.5 x 12 CÉSAR. 1 inflation(s) to [...] stable. Plans for TAVR work-up as OP [employer] [phone] * Princess Puente, PT - 12/08/2022 2:57 PM EST Physical Therapy Facility/Department: [address] Physical Therapy Initial Assessment Name: Cuca Dee [...] pt repositioned in bed for comfort upon newspaper writer's exit. Subjective Subjective: RN and pt [...] rollator at baseline) Transfer Assistance: Independent Active Brush Polisher: No Mode of Transportation: Friends, Cab Occupation: [...] Minutes Princess Puente PT * Rita Leos, SMUTTER - [employer] - 12/08/2022 1:02 PM EST Images from the original note were not included. Liseth Transformer Inspector Progress Note Date: 12/08/2022 Patient name: Cuca [...] bacterial pneumonia NSTEMI (non-ST elevated myocardial infarction) ([facility]) Severe aortic valve stenosis S/P angioplasty with [...] stable Plans for TAVR work-up as OP Ideal Transformer Inspector [facility]. [phone] * Fany Bhakta RN - 12/08/2022 11:10 AM EST Cloth Examiner Machine discussed the next step in the TAVR process, an appointment with the cardiothoracic surgeon,with patient and daughter at bedside in [facility]. Office number given to daughter, she will call to schedule in the next couple days. Cloth Examiner Machine's contact number also given. * Joelle Enrique RN - 12/08/2022 10:00 AM EST Patient declined AM glucose check. She has Dexcom meter in place showing glucose of 99. [facility] policy of checking glucose with our glucometer [...] Joelle PIERRE. Patient transported to room [facility] via stretcher. Right groin assessed byHeather and newspaper writer. Groin remains soft. * Flory Shelby [...] for stat draw. Vascular at bedside. * Folry Shelby RN - 12/07/2022 3:[address] Martinez out to view groin as large firm hematoma noted and marked. Manual pressure held * Keely Priest RN - 12/07/2022 3:00 PM EST Manual pressure held per newspaper writer for [address] Martinez at [...] of 2. Bilateral groin areas clipped with newspaper writer and Maggi estrada present. Daughter Ismael at bedside with patient. History and physical needs updated. * Keely Priest RN - 12/07/2022 1:30 PM EST Received post cardiac cath procedure to [facility] room 10. Assessment obtained. Restrictions reviewed with patient. Post procedure pathway initiated. Right site noted to have small hematoma, manual pressure held by [place]. Band aid dry and intact. Family at side. Patient without complaints. Head of bed flat with right leg straight. [facility]per Work Phone: 1(543) 468-517901-23-2023 Note [facility] Lower Extremities Arterial Duplex Procedure Patient Name CHRISTA Date of Study 12/07/2022 CUCA Date of 1945 Gender Female Age 77 year(s) Race Room Number 0501 Height: 65 inch, 165.1 cm Corporate ID # [id number] Weight: 208 pounds, 94.3 kg Patient BSA: 2.01 m^2 BMI: 34.61 kg/m^2 MR # [id number] Electrode Cleaner Whit Gan RVT Interpreting Physician Darnell Monique [...] ! ! ! ! ! +---------++-----+-----+------+----+------++---+-----+------+----+---------+PN STV [id number] History of Present illness Narrative* Keely Priest RN - 11/24/2022 1:00 PM EST Patient admitted, consent signed and questions answered. Patient ready for procedure. Call light toreach with side rails up 2 of 2. Bilateral groin areas clipped with newspaper writer and Jose PIERRE present. Daughter Ileana at bedside with patient. History and physical needs updated. [facility] [employer] Phone: [phone]) 900-558805-06-2021 NotePROCEDURE: XR FOOT LT MIN 3 VIEWS COMPARISON: None. HISTORY: Pain FINDINGS: BONES:No acute fracture or dislocation. Persistent flexion of the toes limits their evaluation. Mild to moderate degenerative changes with joint space narrowing and marginal osteophyte formation, most significant at the first metatarsophalangeal joint where yozz-lo-bmrx endplate is observed SOFT TISSUES:Negative. No visible soft tissue swelling. EFFUSION:None visible. OTHER: Negative. IMPRESSION: Moderate degenerative changes, no acute fracture Electronically authenticated by: GIOVANNY NICOLE Date: 2021-03-20 08:29[facility] note* Clinical Note Date No Information [facility] Work Phone: Discharge summary* Clinical Note Date No Information [facility] Work Phone: Evaluation note* Diagnosis Severe aortic valve stenosis- Primary Aortic valve disorders documented in this encounter [facility] Art[employer] Phone: evaluation note* Diagnosis RAIN (acute kidney injury) (HCC)- Primary Acute kidney failure, unspecified documented in this encounter [facility] [employer] Phone: evaluation note* Diagnosis Severe aortic valve [...] kidney disease (HCC) Coronary artery disease involving [place] coronary artery of [place] heart without angina pectoris documented in this encounter [facility] Art[employer] Phone: evaluation note* Diagnosis Aortic valve stenosis, etiology of cardiac valve disease unspecified documented in this encounter [facility] Art[employer] Phone: evaluation note* Diagnosis Aortic valve stenosis, etiology of cardiac valve disease unspecified documented in this encounter [facility] Art[employer] Phone: evaluation note* Diagnosis Nonrheumatic aortic valve stenosis- Primary S/p TAVR (transcatheter aortic valve replacement), bioprosthetic Coronary artery disease involving [place] coronary artery of [place] heart without angina pectoris documented in this encounter [facility] SystemEvaluation note* Diagnosis Mixed diabetic hyperlipidemia associated with type 2 diabetes mellitus ([facility])- Primary Insomnia, unspecified type Elevated troponin level Other abnormal blood chemistry Recurrent UTI Urinary tract infection, site not specified documented in this encounter [facility] SystemEvaluation note* Diagnosis Malignant neoplasm of upper-outer quadrant of right breast in female, estrogen receptor positive ([facility])- Primary Metastasis to bone ([facility]) Secondary malignant neoplasm of bone and bone marrow documented in this encounter [facility] SystemEvaluation note* Diagnosis Malignant neoplasm of upper-outer quadrant of right female breast, unspecified estrogen receptor status ([facility])- Primary documented in this encounter [facility] SystemEvaluation note* Diagnosis Malignant neoplasm of upper-outer quadrant of right female breast, unspecified estrogen receptor status ([facility])- Primary documented in [facility] encounter [facility]* Diagnosis Malignant neoplasm of upper-outer quadrant of right female breast, unspecified estrogen receptor status ([facility])- Primary documented in this encounter [facility] SystemEvaluation note* Diagnosis Insomnia, unspecified type documented in this encounter [facility] SystemEvaluation note* Diagnosis Upper respiratory tract infection, unspecified type- Primary Normal pressure hydrocephalus ([facility]) 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 ([facility]) PVD (peripheral vascular disease) ([facility]) Unspecified peripheral vascular disease 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 mellitus ([facility]) Stage 3b chronic kidney disease ([facility]) Major depressive disorder in partial remission, unspecified whether recurrent ([facility]) Essential hypertension Unspecified essential hypertension GERD without esophagitis Esophageal reflux 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 ([facility]) documented in this encounter [facility] SystemEvaluation note* Diagnosis Pneumonia due to other specified organism- Primary documented in this encounter [facility] System[facility] note* Diagnosis Malignant neoplasm of upper-outer quadrant of right female breast, unspecified estrogen receptor status ([facility]) documented in this encounter [facility]* Diagnosis Major depressive disorder in partial remission, unspecified whether recurrent (CMS-HCC) documented in this encounter [facility] SystemEvaluation note* Diagnosis Essential hypertension Unspecified essential hypertension Major depressive disorder in partial remission, unspecified whether recurrent ([facility]) documented in this encounter [facility] System[facility] note* Diagnosis Acute cystitis without hematuria- Primary Urge incontinence of urine Urge incontinence documented in this encounter [facility] SystemEvaluation note* Diagnosis Hypoglycemia- Primary Hypoglycemia, unspecified Mild intermittent reactive airway disease with acute exacerbation documented in this encounter [facility] System[facility] note* Diagnosis Hypoglycemia- Primary Hypoglycemia, unspecified Need for influenza vaccination Need for prophylactic vaccination and inoculation against influenza Altered mental status, unspecified altered mental status type documented in this encounter [facility] System[facility] note* Diagnosis Beverly infection of flexural skin- Primary Candidiasis of skin and nails documented in this encounter [facility] System[facility] note* Diagnosis Malignant neoplasm of upper-outer quadrant of right breast in female, estrogen receptor positive ([facility])- Primary documented in this encounter [facility] System[facility] note* Diagnosis 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 mellitus ([facility]) documented in this encounter [facility] System[facility] note* Diagnosis Insomnia, unspecified type- Primary Moderate episode of recurrent major depressive disorder ([facility]) Stage 3b chronic kidney disease ([facility]) documented in this encounter [facility] SystemEvaluation note* Diagnosis Malignant neoplasm of upper-outer quadrant of right breast in female, estrogen receptor positive (CMS-HCC)- Primary Metastasis to bone (CMS-HCC) Secondary malignant neoplasm of bone and bone marrow documented in this encounter [facility] SystemEvaluation note* Type Assessment Date No Information [facility] Work Phone: Evaluation note* Diagnosis MRSA (methicillin resistant Staphylococcus aureus)- Primary Methicillin resistant Staphylococcus aureus in conditions classified elsewhere and of unspecified site Staphylococcus aureus bacteremia with sepsis ([facility]) documented in this encounter [facility] System[facility] note* Diagnosis Staphylococcus aureus bacteremia with sepsis ([facility])- Primary documented in this encounter [facility] System[facility] note* Diagnosis Staphylococcus aureus bacteremia with sepsis ([facility])- Primary MRSA (methicillin resistant Staphylococcus aureus) Methicillin resistant Staphylococcus aureus in conditions classified elsewhere and of unspecified site documented in this encounter [facility] System[facility] note* Diagnosis Staphylococcus aureus bacteremia with sepsis ([facility])- Primary MRSA (methicillin resistant Staphylococcus aureus) Methicillin resistant Staphylococcus aureus in conditions classified elsewhere and of unspecified site documented in this encounter [facility] note* Diagnosis Staphylococcus aureus bacteremia with sepsis ([facility])- Primary MRSA (methicillin resistant Staphylococcus aureus) Methicillin resistant Staphylococcus aureus in conditions classified elsewhere and of unspecified site documented in this encounter [facility] note* Diagnosis Staphylococcus aureus bacteremia with sepsis ([facility])- Primary MRSA (methicillin resistant Staphylococcus aureus) Methicillin resistant Staphylococcus aureus in conditions classified elsewhere and of unspecified site documented in this encounter [facility] System[facility] note* Diagnosis Staphylococcus aureus bacteremia with sepsis ([facility])- Primary MRSA (methicillin resistant Staphylococcus aureus) Methicillin resistant Staphylococcus aureus in conditions classified elsewhere and of unspecified site documented in this encounter [facility] note* Diagnosis Staphylococcus aureus bacteremia with sepsis ([facility])- Primary MRSA (methicillin resistant Staphylococcus aureus) Methicillin resistant Staphylococcus aureus in conditions classified elsewhere and of unspecified site documented in this encounter [facility] note* Diagnosis Staphylococcus aureus bacteremia with sepsis ([facility])- Primary MRSA (methicillin resistant Staphylococcus aureus) Methicillin resistant Staphylococcus aureus in conditions classified elsewhere and of unspecified site documented in this encounter [facility] System[facility] note* Diagnosis Staphylococcus aureus bacteremia with sepsis ([facility])- Primary MRSA (methicillin resistant Staphylococcus aureus) Methicillin resistant Staphylococcus aureus in conditions classified elsewhere and of unspecified site documented in this encounter [facility] SystemEvaluation note* Diagnosis Moderate major depression [place] Primary Major depressive disorder, single episode, moderate Insomnia, unspecified type Normal pressure hydrocephalus ([facility]) Idiopathic normal pressure hydrocephalus (IN[facility]) Acute on chronic diastolic heart failure ([facility]) Acute on chronic diastolic heart failure Diabetes mellitus type 2, insulin dependent ([facility]) documented in this encounter [facility] System[facility] note* Diagnosis Acute respiratory failure with hypoxia ([facility])- Primary Acute respiratory failure with hypoxia ([facility]) Nondisplaced fracture of lesser trochanter of right femur, initial encounter for closed fracture ([facility]) Generalized weakness Closed fracture of right hip, initial encounter ([facility]) Hypoxia Hypoxemia Type 2 diabetes mellitus with hypoglycemia without coma, with long-term current use of insulin ([facility]) 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 mellitus ([facility]) Mixed diabetic hyperlipidemia associated with type 2 diabetes mellitus ([facility]) Obstructive sleep apnea syndrome Obstructive sleep apnea (adult) (pediatric) Essential (primary) hypertension Unspecified essential hypertension Stage 3b chronic kidney disease ([facility]) Type 2 diabetes mellitus with diabetic chronic kidney disease ([facility]) Closed fracture of right hip ([facility]) Nondisplaced fracture of lesser trochanter of right femur, initial encounter for closed fracture ([facility]) Hypomagnesemia Disorders of magnesium metabolism Iron deficiency anemia Unspecified iron deficiency anemia Acute on chronic diastolic congestive heart failure ([facility]) documented in this encounter [facility] note* Diagnosis Hospital discharge follow-up- Primary Other follow-up examination Closed fracture of right hip, sequela documented in this encounter [facility] System[facility] note* Diagnosis Acute right hip pain- Primary Acute pain of both hips Closed avulsion fracture of right hip with routine healing, subsequent encounter [facility] encounter [facility] noteNo assessment information availableKettering [facility] Work Phone: Evaluation note* Diagnosis Intractable nausea and vomiting- Primary Adnexal mass Other specified symptom associated with female genital organs Intractable nausea and vomiting Type 2 diabetes mellitus without complication, without long-term current use of insulin ([facility] Generalized weakness Hypomagnesemia Disorders of magnesium metabolism Iron deficiency anemia due to chronic blood loss Iron deficiency anemia secondary to blood loss (chronic) 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 mellitus ([facility]) Iron deficiency anemia Unspecified iron deficiency anemia Chronic diastolic congestive heart failure ([facility] Weakness Other malaise and fatigue Adnexal mass Other specified symptom associated with female genital organs documented in this encounter [facility]* Diagnosis Chronic diastolic congestive heart failure ([facility] Primary Hypertensive heart and chronic kidney disease with heart failure and stage 1 through stage 4 chronic kidney disease, or unspecified chronic kidney disease ([facility]) Intractable nausea and vomiting Urinary tract infection without hematuria, site unspecified documented in this encounter [facility]* Diagnosis Acute right hip pain- Primary Closed avulsion fracture of right hip with routine healing, subsequent encounter Intertrochanteric fracture of right hip, closed, initial encounter ([facility]) [facility] encounter [facility] Diagnosis Hypertensive heart and chronic kidney disease with heart failure and stage 1 through stage 4 chronic kidney disease, or unspecified chronic kidney disease ([facility])- Primary Chronic obstructive pulmonary disease, unspecified COPD type ([facility] Lumbar back pain with radiculopathy affecting left lower extremity Spinal stenosis of lumbar region with neurogenic claudication Closed fracture of right hip, sequela Rhinitis, unspecified type documented in this encounter [facility]* Diagnosis Pathological fracture of right hip with routine healing, unspecified pathological cause, subsequent encounter- Primary Closed nondisplaced fracture of pelvis with routine healing, unspecified part of pelvis, subsequent encounter Mixed diabetic hyperlipidemia associated with type 2 diabetes mellitus ([facility] Hypertensive heart and chronic kidney disease with heart failure and stage 1 through stage 4 chronic kidney disease, or unspecified chronic kidney disease ([facility]) documented in this encounter [facility] System[facility]* Diagnosis Chronic diastolic congestive heart failure ([facility])- Primary Pathological fracture of right hip with routine healing, unspecified pathological cause, subsequent encounter Closed fracture of right hip, sequela Closed nondisplaced fracture of lesser trochanter of right femur with delayed healing Other abnormalities of gait and mobility Hypertensive heart and chronic kidney disease with heart failure and stage 1 through stage 4 chronic kidney disease, or unspecified chronic kidney disease ([facility]) documented in this encounter [facility]* Diagnosis 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 mellitus ([facility] Insomnia, unspecified type [facility] in this [facility]* Diagnosis 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, subsequent encounter- Primary Lesion of left femur Lesion of left femur- Primary Lesion of left femur documented in this encounter [facility] SystemEvaluation note* Diagnosis Lesion of left femur- Primary Coronary artery disease involving [place] coronary artery of [place] heart without angina pectoris Chronic diastolic congestive heart failure [place] S/p TAVR (transcatheter aortic valve replacement), 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 and stage 1 through stage 4 chronic kidney disease, or unspecified chronic kidney disease ([facility] documented in this encounter [facility] SystemHistory and physical note* Clinical Note Date No Information [facility] Work Phone: Hospital Discharge instructions* Attachments The following attachments cannot be sent through Care Everywhere. * PCI (Percutaneous Coronary Intervention): Post-op (Algerian) [facility] Work Phone: Hospital Discharge instructionsNot on filedocumented in this encounterGrand Lake [facility] SystemInstructionsNot on filedocumented in this encounterProMobile Infirm[facility] Qiro SystemInstructionsNot on filedocumented in this encounterProMobile Infirmary [facility] Qiro SystemInstructionsNot on filedocumented in this encounterGrand Lake [facility] SystemInstructions* Attachments The following attachments cannot be sent through Care Everywhere. * Carbohydrate Counting Diet (Algerian) documented in this encounterGrand [facility] Qiro SystemInstructionsNot on file documented in this encounterCleveland Clinic Ak[facility] GeneralCerenis Therapeutics SystemInstructionsNot on file documented in this encounterCleveland Clinic Akron GeneralCerenis Therapeutics SystemInstructionsNot on file documented in this [facility] [place] Qiro SystemInstructions* Attachments The following attachments cannot be sent through Care Everywhere. * Bacterial Upper Respiratory Infection, Adult (Algerian) documented in this [facility] [place] Qiro SystemInstructions* Attachments The following attachments cannot be sent through Care Everywhere. * Pneumonia in adults (Algerian) documented in this encounterGrand [facility] Qiro SystemInstructionsNot on file documented in this encounterGrand Lake [facility] Q[facility] SystemInstructionsNot on file documented in this encounterGrand Lake [facility] Qiro SystemInstructionsNot on file documented in this [facility] [place] Qiro SystemInstructionsNot on file documented in this [facility] [place] Qiro SystemInstructions* Attachments The following attachments cannot be sent through Care Everywhere. * Urinary Tract Infection Discharge Instructions, Adult (Algerian) documented in this [facility] [place] Qiro SystemInstructions* Attachments The following attachments cannot be sent through Care Everywhere. * Low blood sugar in people without diabetes (Algerian) documented in this encounterGrand [facility] Qiro SystemInstructionsNot on file documented in this encounterProMedica Health SystemInstructionsNot on file documented in this encounterProMedica Health SystemInstructionsNot on file documented in this encounterProMedica Health SystemInstructions* Attachments The following attachments cannot be sent through Care Everywhere. * Flu vaccine (Algerian) documented in this encounterProMedica Health SystemInstructionsNot on file documented in this encounterProMedica Health SystemInstructionsNot on file documented in this encounterProMedica Health SystemInstructionsNot on file documented in this encounterProMedica Health SystemInstructions* Attachments The following attachments cannot be sent through Care Everywhere. * Insomnia (Algerian) documented in this encounterProMedica Health SystemInstructionsNot on file documented in this encounterProMedica Health SystemInstructionsNot on file documented in this encounterProMedica Health SystemInstructionsNot on file documented in this encounterProMedica Health SystemInstructionsNot on file documented in this encounterProMedica Health SystemInstructionsNot on file documented in this encounterProMedica Health SystemInstructions* Attachments The following attachments cannot be sent through Care Everywhere. * Heart failure (Algerian) documented in this encounterProMedica Health SystemInstructionsNot on file documented in this encounterProMedica Health SystemInstructionsNot on file documented in this encounterProMedica Health SystemInstructionsNot on file documented in this encounterProMedica Health SystemInstructionsNot on file documented in this encounterProMedica Health SystemInstructionsNot on file documented in this encounterProMedica Health SystemInstructionsNot on file documented in this encounterProMediTPI Composites Health SystemInstructionsNot on file documented in this encounterProMediCerenis Therapeutics SystemInstructionsNot on file documented in this encounterProMediCerenis Therapeutics SystemInstructionsNot on file documented in this encounterProAGI Biopharmaceuticals SystemInstructionsNot on file documented in this encounterProAGI Biopharmaceuticals SystemProgress note* Clinical Note Date No Information [facility] Work Phone: Reason for referral (narrative)* Reason For Referral No Information [facility] Work Phone: Reason for referral (narrative)No reason for referral information availableKettering Health [facility] Work Phone: Reason for visit Narrative* Auth/Cert Specialty Diagnoses / Procedures Referred By Contac t Referred To Contact Diagnoses weakness [place] [address] [address] [place] [phone] Phone: tel: fax: Referral ID Status Reason Start Date Expiration Date Visits Re quested Visits Authorized [id number] 1 1 [facility] Advance Directives Documents on File Type Date Recorded 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 ACP-Advance Directive ACP-Power of Web Merchant Latest Code Status on File Code Status [...] Documents on File Type Date Recorded 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 ACP-Advance Directive 12/14/2022 2:27 PM Latest Code Status on File Code Status Date Activated Date Inactivated Comments Full Code 12/07/2022 11:24 AM 12/11/2022 1:10 PM Full Code 11/24/2022 11:19 AM 11/25/2022 2:46 AM Full Code 09/28/2022 4:15 AM 09/30/2022 6:37 PM Full Code 10/15/2014 1:49 PM 10/15/2014 8:39 PM Documents on File Type Date Recorded 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 ACP-Advance Directive 12/14/2022 2:27 PM Latest Code Status on File Code Status Date Activated Date Inactivated Comments Full Code 12/07/2022 11:24 AM 12/11/2022 1:10 PM Documents on File Type Date Recorded 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 Durable Power of Web Merchant 10/21/2022 2:24 PM DNR Physician Order 10/21/2022 2:24 PM Living Will 01/30/2021 12:07 PM Durable Power of Web Merchant 01/30/2021 12:07 PM Living Will 01/29/2021 6:19 [...] Documents on File Type Date Recorded 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 Durable Power of Web Merchant 10/21/2022 2:24 PM DNR Physician Order 10/21/2022 2:24 PM Living Will 01/30/2021 12:07 PM Durable Power of Web Merchant 01/30/2021 12:07 PM Living Will 01/29/2021 6:19 [...] Documents on File Type Date Recorded 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 Durable Power of Web Merchant 03/30/2025 9:23 AM Durable Power of Web Merchant 10/21/2022 2:24 PM DNR Physician Order 10/21/2022 2:24 PM Living Will 01/30/2021 12:07 PM Durable Power of Web Merchant 01/30/2021 12:07 PM Living Will 01/29/2021 6:19 AM Advance Directive 01/29/2021 6:18 AM DNR Physician Order 11/03/2019 1:27 PM Documents on File Type Date Recorded 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 Durable Power of Web Merchant 03/30/2025 9:23 AM Durable Power of Web Merchant 10/21/2022 2:24 PM DNR Physician Order 10/21/2022 2:24 PM Living Will 01/30/2021 12:07 PM Durable Power of Web Merchant 01/30/2021 12:07 PM Living Will 01/29/2021 6:19 [...] 07/18/2025 2:26 PM Summary Purpose Family History Family Member Type Diagnosis Age [...] W C STC MORP CARD ONLY 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 [employer]TER - [employer] [address] [place] [address] Referral ID Status Reason Start Date Expiration Date Visits Re quested Visits Authorized [id number] Closed 01/11/2023 04/10/2023 1 1 Specialty Diagnoses / Procedures Referred By Contac t Referred To Contact Radiology Diagnoses Aortic valve stenosis, etiology of cardiac valve disease unspecified Procedures CTA CHEST ABDOMEN PELVIS W CONTRAST 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 [employer] [address] [place] [address] Referral ID Status Reason Start Date Expiration Date Visits Re quested Visits Authorized [id number] Closed 01/11/2023 04/10/2023 1 1 Specialty Diagnoses / Procedures Referred By Contac t Referred To Contact Radiology Diagnoses Malignant neoplasm of upper-outer quadrant of right female breast, unspecified estrogen receptor status (CMS-HCC) Malignant neoplasm of upper-outer quadrant of right breast in female, estrogen receptor positive (CMS-HCC) Procedures PET CT skull to thigh Casimiro Muñoz MD [address] [facility] [address] [place], [place] [id number] Referral ID Status Reason Start Date Expiration Date V isits Requested Visits Authorized [id number] Pending Review 11/25/2023 11/24/2024 1 1 Chief Complaint and Reason for Visit Chief Complaint Admit Date Unknown June 25, 2025 1: 36pm Additional Source Comments INFORMATION SOURCE (unrecogn ized section and content) DATE CREATED AUTHOR 03/27/2021 [facility] DATE CREATED AUTHOR AUTHOR'S ORGANIZ ATION 04/09/2021 [facility] DATE CREATED AUTHOR AUTHOR'S ORGANIZ ATION 04/06/2022 [facility] DATE CREATED AUTHOR AUTHOR'S ORGANIZ ATION 01/22/2023 [facility] DATE CREATED AUTHOR AUTHOR'S ORGANIZ ATION 02/12/2025 [facility] DATE CREATED AUTHOR AUTHOR'S ORGANIZ ATION [facility]/07/[facility] DATE CREATED AUTHOR AUTHOR'S ORGANIZ ATION 06/29/2025 [facility] DATE CREATED AUTHOR AUTHOR'S ORGANIZ ATION 07/07/2025 [facility] DATE CREATED AUTHOR AUTHOR'S ORGANIZ ATION 07/14/2025 [facility] DATE CREATED AUTHOR AUTHOR'S ORGANIZ ATION 07/15/2025 [facility] DATE CREATED AUTHOR AUTHOR'S ORGANIZ ATION 08/06/2025 [facility] DATE CREATED AUTHOR AUTHOR'S ORGANIZ ATION 08/06/2025 [facility] Reason for Visit (unrecogniz ed section and content) Specialty Diagnoses / Procedures Referred By Polo t Referred To Contact [facility] [address] [place] [address] Referral ID Status Reason Start Date Expiration Date Visits Re quested Visits Authorized [id number] 1 1 Referral ID Status Reason Start Date Expiration Date Visits Re quested Visits Authorized [id number] 1 1 Specialty Diagnoses / Procedures Referred By Polo t Referred To Contact Radiology Diagnoses Aortic valve stenosis, etiology of cardiac valve disease unspecified Procedures CT CARDIAC W C STC MORP CARD ONLY 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, 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 - [employer] [address] [place] [address] Referral ID Status Reason Start Date Expiration Date Visits Re quested Visits Authorized [id number] Closed 01/11/2023 04/10/2023 1 1 Specialty Diagnoses / Procedures Referred By Contac t Referred To Contact Radiology Diagnoses Aortic valve stenosis, etiology of cardiac valve disease unspecified Procedures CTA CHEST ABDOMEN PELVIS W CONTRAST 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, [employer] [address] [place] [address] Referral ID Status Reason Start Date Expiration Date Visits Re quested Visits Authorized [id number] Closed 01/11/2023 04/10/2023 1 1 Reason Onset Date Comments Hospital Follow-up 11/13/2024 Reason Comments Follow-up EST PT HOSPITAL FU P MH ELEVATED TROPONIN Reason Comments tcm Oct, [facility] Reason Comments Follow-up Reason Onset Date [...] Hypoxia Acute respiratory failure with hypoxia (CMS-HCC) [facility] [address] [place] [address] Phone: tel: fax: Referral ID Status Reason Start Date Expiration Date Visits Re quested Visits Authorized [id number] 1 1 Reason Comments Follow-up Pneumonia, Hairline Fracture of hip. [facility] Now home Reason Comments Pain Reason Onset Date Comments OTC Tylenol not working 06/18/2025 Reason Onset Date Comments Appointment 07/05/2025 Reason Onset Date Comments wants to know if she can do outpatient wants to be referred 06/21/2025 Reason Onset Date Comments Appointment 07/25/2025 Reason Onset Date Comments Med Refill 07/30/2025 Reason Onset Date Comments Med Refill 08/01/2025 Reason Comments Post-op S/P R Femur IMN / no xr / tiny out.. Post-op Care Teams (unrecognized sec tion and content) Inpatient Services Director Relationship Specialty Start Date End Date Michael Duarte PCP - General Family Medicine 09/29/22 Inpatient Services Director Relationship Specialty Start Date End Date Michael Duarte PCP - General Family Medicine 09/29/22 Inpatient Services Director Relationship Specialty Start Date End Date Michael Duarte PCP - General Family Medicine 09/29/22 Inpatient Services Director Relationship Specialty Start Date End Date Mihcael Duarte PCP - General Family Medicine 09/29/22 Inpatient Services Director Relationship Specialty Start Date End Date Michael Duarte PCP - General Family Medicine 09/29/22 Inpatient Services Director Relationship Specialty Start Date End Date Pam Stinson, SMUTTER - [facility] [address] [place] [address] PCP - General 01/15/23 Inpatient Services Director Relationship Specialty Start Date End Date Pam Stinson [facility] - [facility] [address] [place] [address] PCP - General 01/15/23 Inpatient Services Director Relationship Specialty Start Date End Date Pam Stinson [facility] [address] [place] [address] PCP - General Family Medicine 09/28/23 Inpatient Services Director Relationship Specialty Start Date End Date Pam Stinson [facility] [address] [place] [address] PCP - General Family Medicine 09/28/23 Inpatient Services Director Relationship Specialty Start Date End Date [facility] St[facility] [address] [place] [address] PCP - General Family Medicine 11/17/24 Inpatient Services Director Relationship Specialty Start Date End Date Pam Stinson [facility] [address] [place] [address] PCP - General Family Medicine 11/17/24 Inpatient Services Director Relationship Specialty Start Date End Date Pam Stinson [facility] [address] [place] [address] PCP - General Family Medicine 11/17/24 Inpatient Services Director Relationship Specialty Start Date End Date Pam Stinson [facility] [address] [place] [address] PCP - General Family Medicine 09/28/23 Inpatient Services Director Relationship Specialty Start Date End Date Pam Stinson [facility] [address] [place] [address] PCP - General Family Medicine 09/28/23 Inpatient Services Director Relationship Specialty Start Date End Date Pam Stinson [facility] [address] [place] [address] PCP - General Family Medicine 09/28/23 Inpatient Services Director Relationship Specialty Start Date End Date Pam Stinson [facility] [address] [place] [address] PCP - General Family Medicine 09/28/23 Inpatient Services Director Relationship Specialty Start Date End Date Pam Stinson [facility] [address] [place] [address] PCP - General Family Medicine 09/28/23 Inpatient Services Director Relationship Specialty Start Date End Date Pam Stinson [facility] [address] [place] [address] PCP - General Family Medicine 09/28/23 Inpatient Services Director Relationship Specialty Start Date End Date Pam Stinson [facility] [address] [place] [address] PCP - General Family Medicine 09/28/23 Inpatient Services Director Relationship Specialty Start Date End Date Pam Stinson [facility] [address] [place] [address] PCP - General Family Medicine 09/28/23 Inpatient Services Director Relationship Specialty Start Date End Date Pam Stinson [facility] [address] [place] [address] PCP - General Family Medicine 09/28/23 Inpatient Services Director Relationship Specialty Start Date End Date Pam Stinson [facility] [address] [place] [address] PCP - General Family Medicine 09/28/23 Inpatient Services Director Relationship Specialty Start Date End Date Pam Stinson [facility] [address] [place] [address] PCP - General Family Medicine 09/28/23 Inpatient Services Director Relationship Specialty Start Date End Date Pam Stinson [facility] [address] [place] [address] PCP - General Family Medicine 09/28/23 Inpatient Services Director Relationship Specialty Start Date End Date Pam Stinson [facility] [address] [place] [address] PCP - General Family Medicine 09/28/23 Inpatient Services Director Relationship Specialty Start Date End Date Pam Stinson [facility] [address] [place] [address] PCP - General Family Medicine 09/28/23 Inpatient Services Director Relationship Specialty Start Date End Date Pam Stinson [facility] [address] [place] [address] PCP - General Family Medicine 09/28/23 Inpatient Services Director Relationship Specialty Start Date End Date Pam Stinson [facility] [address] [place] [address] PCP - General Family Medicine 09/28/23 Inpatient Services Director Relationship Specialty Start Date End Date Pam Stinson [facility] [address] [place] [address] PCP - General Family Medicine 09/28/23 Inpatient Services Director Relationship Specialty Start Date End Date Pam Stinson [facility] [address] [place] [address] PCP - General Family Medicine 01/11/25 Inpatient Services Director Relationship Specialty Start Date End Date Pam Stinson [facility] [address] [place] [address] PCP - General Family Medicine 01/11/25 Inpatient Services Director Relationship Specialty Start Date End Date Pam Stinson [facility] [address] [place] [address] PCP - General Family Medicine 01/11/25 Inpatient Services Director Relationship Specialty Start Date End Date Pam Stinson [facility] [address] [place] [address] PCP - General Family Medicine 01/11/25 Name Effective Dates (start - stop) Status Members No Information Inpatient Services Director Relationship Specialty Start Date End Date Pam Stinson [facility] [address] [place] [address] PCP - General Family Medicine 01/11/25 Inpatient Services Director Relationship Specialty Start Date End Date Pam Stinson [facility] [address] [place] [address] PCP - General Family Medicine 01/11/25 Inpatient Services Director Relationship Specialty Start Date End Date Pam Stinson [facility] [address] [place] [address] PCP - General Family Medicine 01/11/25 Inpatient Services Director Relationship Specialty Start Date End Date Pam Stinson [facility] [address] [place] [address] PCP - General Family Medicine 01/11/25 Inpatient Services Director Relationship Specialty Start Date End Date Pam Stinson [facility] [address] [place] [address] PCP - General Family Medicine 01/11/25 Inpatient Services Director Relationship Specialty Start Date End Date Pam Stinson [facility] [address] [place] [address] PCP - General Family Medicine 03/16/25 Inpatient Services Director Relationship Specialty Start Date End Date Pam Stinson [facility] [address] [place] [address] PCP - General Family Medicine 03/16/25 Inpatient Services Director Relationship Specialty Start Date End Date Pam Stinson [facility] [address] [place] [address] PCP - General Family Medicine 03/16/25 Inpatient Services Director Relationship Specialty Start Date End Date Pam Stinson [facility] [address] [place] [address] PCP - General Family Medicine 03/16/25 Inpatient Services Director Relationship Specialty Start Date End Date Pam Stinson [facility] [address] [place] [address] PCP - General Family Medicine 03/16/25 Inpatient Services Director Relationship Specialty Start Date End Date Pam Stinson [facility] [address] [place] [address] PCP - General Family Medicine 03/16/25 Inpatient Services Director Relationship Specialty Start Date End Date Pam Stinson [facility] [address] [place] [address] PCP - General Family Medicine 03/16/25 Inpatient Services Director Relationship Specialty Start Date End Date Pam Stinson [facility] [address] [place] [address] PCP - General Family Medicine 03/16/25 Inpatient Services Director Relationship Specialty Start Date End Date Pam Stinson [facility] [address] 05/14/25 [place] [address] PCP - General Family Medicine 05/14/25 Inpatient Services Director Relationship Specialty Start Date End Date Vj Gray, [facility] [address] [place] [address] PCP - General Nurse Practitioner 05/30/25 Inpatient Services Director Relationship Specialty Start Date End Date Unallocated, Noms MD Tegan [address] [place] [address] PCP - General Family Medicine 06/06/25 Inpatient Services Director Relationship Specialty Start Date End Date Unallocated, Andrea Javed MD [address] [facility] [address] PCP - General Family Medicine 06/06/25 Inpatient Services Director Relationship Specialty Start Date End Date Unallocated, Andrea Javed MD [address] [facility] [address] PCP - General Family Medicine 06/06/25 Team Status: Inactive Member Role Status Dates Ra Maravilla , DO Attending Provider Active S tart: June 25, 2025 End: June 25, 2025 Inpatient Services Director Relationship Specialty Start Date End Date Vj Gray, [facility] [address] [place] [address] PCP - General Nurse Practitioner 05/30/25 Inpatient Services Director Relationship Specialty Start Date End Date Vj Gray, [facility] [address] [place] [address] PCP - General Nurse Practitioner 05/30/25 Inpatient Services Director Relationship Specialty Start Date End Date Vj Gray, [facility] [address] [place] [address] PCP - General Nurse Practitioner 05/30/25 Inpatient Services Director Relationship Specialty Start Date End Date Unallocated, Andrea Javed MD [address] [place] [address] PCP - General Family Medicine 06/06/25 Inpatient Services Director Relationship Specialty Start Date End Date Unallocated, [place] [address] PCP - General Family Medicine 06/06/25 Inpatient Services Director Relationship Specialty Start Date End Date Unallocated, Noms Tegan, [address] [place] [address] PCP - General Family Medicine 06/06/25 Inpatient Services Director Relationship Specialty Start Date End Date Vj Gray, [employer] [address] [place] [address] PCP - General Nurse Practitioner 05/30/25 Inpatient Services Director Relationship Specialty Start Date End Date Vj Gray, [employer] [address] [place] [address] PCP - General Nurse Practitioner 05/30/25 Inpatient Services Director Relationship Specialty Start Date End Date Vj Gray, [employer] [address] [place] [address] PCP - General Nurse Practitioner 05/30/25 Inpatient Services Director Relationship Specialty Start Date End Date Vj Gray, [employer] [address] [place] [address] PCP - General Nurse Practitioner 05/30/25 Inpatient Services Director Relationship Specialty Start Date End Date Vj Gray, [employer] [address] [place] [address] PCP - General Nurse Practitioner 05/30/25 Inpatient Services Director Relationship Specialty Start Date End Date Vj Gray, [employer] [address] [place] [address] PCP - General Nurse Practitioner 05/30/25 Inpatient Services Director Relationship Specialty Start Date End Date Vj [facility], [facility] [address] [place] [address] PCP - General Nurse Practitioner 05/30/25 Inpatient Services Director Relationship Specialty Start Date End Date Vj Gray, [facility] [address] [place] [address] PCP - General Nurse Practitioner 05/30/25 Inpatient Services Director Relationship Specialty Start Date End Date Vj Gray, [facility] [address] [place] [address] PCP - General Nurse Practitioner 05/30/25 Inpatient Services Director Relationship Specialty Start Date End Date Vj Gray, [facility] [address] [place] [address] PCP - General Nurse Practitioner 05/30/25 Ordered [...] 0846 (Given - Provider: Stefanie Lu RN) atorvastatin (LIPITOR) tablet 80 mg 80 mg, Oral, NIGHTLY, First dose on Wed12/07/22 at 2100, Until Discontinued 2024 (Given - Provider: Tamika Villavicencio, GABBY) 1956 (Given - Provider: Libia Lyons RN) 2100 (Due) clopidogrel (PLAVIX) tablet 75 mg [...] Recovery(Cath) 0952 (Not Given - Provider: Jacqueline Medina, GABBY - Reason: IV Fluid Infusing)2005 (Not Given - Provider: Tamika Villavicencio RN - Reason: IV Fluid Infusing) 0804 (Not Given - Provider: Jacqueline Medina RN - Reason: IV Fluid Infusing)1957 (Given - Provider: Libia Lyons RN) 0847 [...] back and for the from [address]C to [facility] [address] as needed for addt'l testing throughout the [...] RN)2133 (Given - Provider: Ely Riddle RN) 09 (Given - Provider: Migue Douglas RN) ferrous sulfate tablet 325 mg 325 mg, oral, Daily with breakfast, First dose on Wed05/14/25 at 1330, Give ferrous sulfate 2 hours before or 4 hours after antacids. 1527 (Given - Provider: Migue Douglas RN) 0901 (Given - Provider: Migeu Douglas RN) furosemide (LASIX) tablet 20 mg [...] Riddle, GABBY) 0524 (Given - Provider: Ely Riddle RN)1436 [...] 2214 (Given - Provider: Genoveva Medley RN) 2135 (Given - Provider: Ely Riddle, GABBY) insulin regular (HumuLIN R,NovoLIN R) injection 10 [...] Hours, Every 8 hours, First dose on 05/13/25 at 1600, Scheduling/ADT, Start 4 hours after 4.5gram dose, Indication: Sepsis 1732 (New Bag - Provider: Shaista Cooley RN)1833 (Rate/Dose Verify - Provider: Cristóbal Becerra RN)183 (Rate/Dose Verify - Provider: Cristóbal Becerra RN)185 (Paused - Provider: Migue Douglas RN)1899 (Restarted [...] (COMPLETED) 1,710 mL (30 mL/kg 57 kg [place] weight), intravenous, at 1,682 mL/hr, Administer over [...] Becerra RN)1645 (Stop Bag - Provider: Cristóbal Becerar RN) Continuous Medication Order 05/13/2025 05/14/2025 05/15/2025 sodium chloride 0.9 % infusion (CANCELED) 75 mL/hr, intravenous, Continuous, Starting on 05/13/25 at 1450, Scheduling/ADT 1727 (New Bag - Provider: Shaista Cooley RN)1833 (Rate/Dose Verify - Provider: Cristóbal Becerra RN)1835 (Rate/Dose Verify - Provider: Cristóbal Becerra RN)2030 (Paused - Provider: Migue Douglas RN)2034 (Restarted - Provider: Migue Douglas RN)204 (Stop Bag - Provider: Migue Douglas RN)204 (Stop Bag - Provider: Genoveva Medley RN [...] Douglas, GABBY)1424 (Stop Bag - Provider: Migue Douglas RN) [...] juice. 1312 (Given - Provider: Cesilia Hand RN)8 (Given - Provider: Kristy Galarza, RN) 0551 [...] dissolve drug prior to administration., Indication: UTI 180 (New Bag - Provider: Cesilia Hand, GABBY)1839 (Stop Bag - Provider: Kristy Galarza, RN) cyanocobalamin tablet 1,000 mcg 1,000 mcg, oral, Daily, First dose on Wed07/02/25 at 1815 0852 (Given - Provider: Cesilia Hand, GABBY) 0930 (Given - Provider: Cesilia Hand, GABBY) 0904 (Given - Provider: Tanya Rodriguez, RN) enoxaparin (LOVENOX) syringe 40 mg 40 mg, subcutaneous, Daily, First dose on Wed07/03/25 at 0600, When Creatinine Clearance 30 mL/min or greater Look-alike/sound-alike medication - verify indication for use. 0600 (Given - Provider: Kristy Galarza RN) 0520 (Given - Provider: Kristy Galarza RN) 0551 (Given - Provider: Kristy Galarza RN) ferrous sulfate tablet 325 mg 325 mg, oral, 2 times daily with meals, First dose (after last modification) on Wed07/03/25 at 0800, Give ferrous sulfate 2 hours before or 4 hours after antacids. 0852 (Given - Provider: Cesilia Hand RN)1758 (Given - Provider: Cesilia Hand, RN) 0930 (Given - Provider: Cesilia Hand, RN)1659 (Given - Provider: Amy Simms RN) [...] Galarza RN) 2037 (Given - Provider: Kristy Galarza, RN) insulin lispro (HumaLOG) injection 1-4 Units [...] RN - Reason: Order parameters not met) 2099 (Not Given - Provider: Kristy Galarza RN [...] parameters not met)1225 (Given - Provider: Tanya Rodriguez RN)1751 (Given - Provider: Tanya Rodriguez RN) magnesium oxide (MAGOX) tablet 400 mg [...] for use. 2019 (Given - Provider: Kristy Galarza, GABBY) 2037 (Given - Provider: Kristy Galarza, GABBY) Continuous Medication Order 07/03/2025 07/04/2025 07/05/2025 sodium chloride 0.9 % infusion () 50 mL/hr, intravenous, Continuous, Starting on Wed07/02/25 at 1815, For 1 day 1758 (New Bag - Provider: Cesilia aHnd RN - Comment: [Order ends at this [...] as needed, dyspepsia, Starting on Wed07/02/25 at 1811, Look-alike/sound-alike medication - verify indication for use. Gus well., Indications: dyspepsia calcium gluconate 2,000 mg [...] than 70 mg/dL, Starting on Wed07/02/25 at 181, If patient conscious and taking PO. If [...] PRN, nausea, vomiting, Starting on Wed07/02/25 at 181, Intravenous administration preferred to be given over [...] after IVPB administration, Starting on Wed07/02/25 at 181 sodium chloride 0.9 % infusion 20 mL/hr, intravenous, Continuous PRN, to maintain patency of lines, Starting on Wed07/02/25 at 1811 sodium phosphate 20 mmol in sodium chloride 0.9 % 100 mL IVPB(Linked Group 3) 20 mmol, intravenous, at 26.7 mL/hr, Administer over 4 Hours, As needed, for phosphorus level 2.3 mg/dL or less., Starting on Wed07/02/25 at 181, Administer over 4 hours via dedicated line [...] or less., Starting on Wed07/02/25 at 181, Administer over 4 hours via dedicated line (central line). If administered, recheck phosphorus level 4 hours after infusion complete. Infuse using central line access. Or sod phos di, mono-K phos mono (K-PHOS NEUTRAL) 250 mg tablet 2 tabletJump to med 2 tablet, oral, As needed, for phosphorus level 2.3 mg/dL or less., Starting on Wed07/02/25 at 1810, If dose administered, recheck phosphorus level 4 [...] BE BASED ON THE PRIMARY CLINICAL RECORDS. [employer] provides no warranty or guarantee of the accuracy or completeness of information in this document.
[2025-08-10 17:14] LABS: Anion Gap 7.4; Blood Urea Nitrogen 28.0 mg/dL (7.0-18.0); Calcium 9.5 mg/dL (8.5-10.1); Carbon Dioxide 34.7 mmol/L (21.0-32.0); Chloride 96 mmol/L (98-107); Estimated GFR (African America 37 (>=60 mL/min/1.73m^2); Estimated GFR (Non-African Ame 31 (>=60 mL/min/1.73m^2); Glucose 209 mg/dL (74-106); NT Pro B Type Natriuretic Pept 1465.0 pg/mL (<=1800.0); Potassium 4.1 mmol/L (3.5-5.1); Sodium 134 mmol/L (136-145)
[2025-08-10 17:23] LABS: Hematocrit 22.9 % (36.0-48.0)
== END 2025-08-10 16:41 | disposition home or self-care (01) ==
LOC: LAB 16:40
PROVIDERS: PCP Nurse Practitioner; Visit Provider Family Medicine
DX: J44.1 Chronic obstructive pulmonary disease with (acute) exacerbation (principal)
CPT/HCPCS: 36415; 80048; 83880; 85025

== ENCOUNTER 2025-09-10 03:09 | Inpatient (IN) | payer MEDICARE, MEDICAID, SELFPAY ==
--- OUTSIDE RECORDS SUMMARY | 2025-01-16 11:20 | XMS_ITS ---
Author Organization The [facility] in [place] Address [address] [place] [address] Care Team Providers Care Literary Writer Name Role Phone Stephanie Ley Primary Care Provider Brenda Brownlee [phone] Encounters Encounter Location Date Provider Diagnosis [facility] [place] [address] [place] [address] 01/16/2025 Brenda Mack Plan Of Treatment No Information Progress Notes * Cuca GOODWIN YDOB:[birth year] (80 yo F)Acc No.[id number]:01/16/2025 UNLOCKED PROGRESS NOTE Progress Note Patient: Cuca WARNER :?KAIDEN RandallDOB:1945???Age: 79 Y???Sex:FemaleDate:01/16/2025Phone:[phone]:[address] [place] [address]Pcp:Stephanie Ley Subjective: * Chief Complaints: * * Medical History: Objective: * Vitals: Assessment: Plan: * Treatment: * * Electronic signature of KAIDEN Radnall APRN.CNP.[id number] on 09/10/2025 at 03:19 AM EDTSign off status: PendingVisit Status:?R/S (Rescheduled) * Provider: KAIDEN Stewart Date: 0 01/16/2025 Generated for Printing/Faxing/eTransmitting on:?09/10/2025 03:19 AM EDT
--- OUTSIDE RECORDS SUMMARY | 2025-02-12 06:07 | XMS_ITS | Continuity of Care Document ---
Author Organization [facility] Address [address] [place] [address] Phone Care Team Providers Care Bulb Filler Name Role Phone Bhavik La MD, Kendall Unavailable Unavailabl e Allergies, Adverse Reactions, Alerts Substance Reaction Status Criticality No Known Allergies Active No Inform ation Medications Medication Instructions Dosage Effective Dates (start - stop) Status Comments Avastin 25 mg/mL intravenous solution Direct Patient Administration Only - Active OU gabapentin 300 mg capsule take 1 capsule by oral route 4 times every day 300 MG - Active metoprolol succinate ER 25 mg tablet,extended release 24 hr take 1 tablet by oral route every day 25 MG - Active sertraline 100 mg tablet take 1 tablet b y oral route every day 100 MG - Active atorvastatin 40 mg tablet take 1 tablet by oral route every day 40 MG - Active furosemide 20 mg tablet take 1 tablet by oral route every day 20 MG - Active lisinopril 5 mg tablet take 1 tablet by oral route every day 5 MG - Active Levemir 100 unit/mL Sub-Q inject by subcutaneous route as per insulin sliding scale protocol - Active Novolog 100 unit/mL Sub-Q inject by subcutaneous route as per insulin sliding scale protocol - Active VITAMIN D3 (unknown strength) Not Available - Active naproxen 500 mg Tab take 1 tablet (500MG) by oral route 2 times every day with food 500 MG - Active pravastatin 40 mg Tab take 1 tablet (40MG) by oral route every day 40 MG - Active metoprolol tartrate 25 mg Tab take 1 tablet (25MG) by oral route 2 times every day 25 MG - Active hydrochlorothiazide 12.5 mg Cap take 2 capsule (25MG) by oral route every day 25 MG - Active Procedures Procedure Date Intravitreal Injection Of Phamacologic A gent Fundus Photos No Charge Bilateral Ophthal DX Image Post Retina I And R Uni Or Bi Injection Bevacizumab .25 MG Intraocular Avastin OFFICE/OUTPATIENT VISIT, NEW Medical Eye Exam, Established Diabetic Dilated Exam OCT EYE EXAM ESTABLISHED [facility] Diabetic Dilated Exam OCT Intravitreal Injection Lucentis Ranibizumab Injection 13 Eye Exam With Treatment Diabetic Dilated Exam OCT Intravitreal Injection Lucentis Ranibizumab Injection 13 EYE EXAM ESTABLISHED [facility] OCT Intravitreal Injection Lucentis Ranibizumab Injection 13 Eye Exam With Treatment OCT Intravitreal Injection Lucentis Ranibizumab Injection 13 Office Visit, Low OCT Intravitreal Injection Lucentis Ranibizumab Injection 12 Office Visit, Low OCT Intravitreal Injection Lucentis Ranibizumab Injection 12 Office Visit, Low OCT Intravitreal Injection Lucentis Ranibizumab Injection 12 Advance Directives Directive Yes / No Effective Date File Name No Information Encounters Encounter Description Practice Location Reason(s) For Visit Diagnoses Date Provider Providers Copied on Encounter [facility], [address], [place], [address], [place] tel:[phone] ANGELA Waller No Information Bhavik Argueta. [address], [address], [place], [address], [place]. tel:[phone] OFFICE/OUTPA TIENT VISIT, NEW [facility], [address] [facility], [place], [address], [place] tel:[phone] RVA Waller AMD (chief complaint) Proliferative diabetic retinopathy of right eye without macular edema associated with type 2 diabetes mellitusProliferative diabetic retinopathy of left eye with macular edema associated with type 2 diabetes mellitusIntermediate stage nonexudative age-related macular degeneration of both eyesPresence of intraocular lensPVD (posterior vitreous detachment), both eyesEpiretinal membrane (ERM) of left eye Jan-0 5 Bhavik Argueta. [address], [address] [facility], [place], [address], [place]. tel:[phone] Referring Provider: Kendall Villar, [address] [facility], [place], [address]. tel:[phone] [facility], [address] [place], [address], [place] tel:[phone] RVA Falun Venous tributary (branch) occlusion of retinaRetinal edemaPseudophakia 0 3 Merrill Kaminski. [address], [address] [place] [address], [id number] , [place]. tel:[phone] Referring Provider: Gordy Mendoza, [address] [facility], [place], [address] . tel:[phone] [facility], [address] [place], [address], [place] tel:[phone] RVA [place] Venous tributary (branch) occlusion of retinaRetinal edemaSenile nuclear sclerosisPseudophakia 2 3 Merrill Kaminski. [address], [address] [place] [address], [id number] , [place]. tel:[phone] Referring Provider: Gordy Mendoza, [address] [facility], [place], [address] . tel:[phone] [facility], [address] [place], [address], [place] tel:[phone] RVA Falun Retinal edemaVenous tributary (branch) occlusion of retinaPseudophakia 3 Merrill Kaminski. [address], [address], [place], [place], [id number] , [place]. tel:[phone] Referring Provider: Gordy Mendoza, [address], [place], [address] . tel:[phone] [facility], [address] [place], [address], [place] tel:[phone] RVA Falun Venous tributary (branch) occlusion of retinaRetinal edemaPseudophakiaPseu dophakia 3 Merrill Kaminski. [address], [address] [facility], [place], [place], [id number] , [place]. tel:[phone] Referring Provider: Gordy Mendoza, [address] [facility], [place], [address] . tel:[phone] [facility], [address] [place], [address], [place] tel:[phone] RVA Falun Retinal edemaVenous tributary (branch) occlusion of retinaSenile nuclear sclerosis 3 Merrill Kaminski. [address], [address] [facility], [place], [place], [id number] , [place]. tel:[phone] Referring Provider: Gordy Mendoza, [address] [facility], [place], [address] . tel:[phone] Office Visit, Kushal [facility], [address] [place], [address], [place] tel:[phone] RVA Falun Retinal edemaVenous tributary (branch) occlusion of retinaSenile nuclear sclerosis 2 Merrill Kaminski. [address], [address] [facility], [place], [place], [id number] , [place]. tel:[phone] Referring Provider: Gordy Mendoza, [address] [facility], [place], [address] . tel:[phone] Office Visit, Low [facility], [address] [place], [address], [place] tel: [phone] RVA [place] Venous tributary (branch) occlusion of retinaRetinal edemaSenile nuclear sclerosis Sep- 2 Merrill Kaminski. [address], [address] [facility], [place], [place], [id number] , [place]. tel: [phone] Referring Provider: Gordy Mendoza, [address] [facility], [place], [address] . tel:[phone] Office Visit, Low [facility], [address] [place], [address], [place] tel: [phone] RVA Falun Venous tributary (branch) occlusion of retinaRetinal edemaSenile nuclear sclerosis Oct- 2 Merrill Kaminski. [address], [address] [facility], [place], [place], [id number] , [place]. tel: [phone] Referring Provider: Gordy Mendoza, [address] [facility], [place], [address] . tel:[phone] [facility], [address] [place], [address], [place] tel: [phone] RVA Falun Venous tributary (branch) occlusion of retinaRetinal edemaSenile nuclear sclerosis Oct- 2 Merrill Kaminski. [address], [address] [facility], [place], [place], [id number] , [place]. tel:[phone] Family History Family Member Type Diagnosis Age At Onset Problem (finding) Family history of Heart Disease Mother Problem (finding) Arthritis Mother Problem (finding) Cataracts Mother Problem (finding) Diabetes mellitus Payers Payer name Insurance type Covered democrat ID Vita feliz(s) [employer] Medicare BL [id number] Social History Type Description Quantity Date Captured Comments Sex Female Smoking Status No Information Chief Complaint And Reason For Visit No Information Reason For Referral Reason For Referral No Information Plan Of Treatment Date Type Action Status Goal Tobacco cessation counseling completed History Of Present Illness Encounter Date Complaint History Of Prese nt Illness AMD The 79 year old female presents for evaluation of AMD in the right and left eyes. Patient states vision stables. Patient Denies any new flashes, floaters, or discomfort. Patient does not use drops at home. Functional Status Date Functional Assessmen t No Information Instructions Date Instruction Additional Infor mation Impression/Plan Related to Prese nce of intraocular lens Impression/Plan Related to Inter mediate stage nonexudative age-related macular degeneration of both eyes Impression/Plan Related to Proli ferative diabetic retinopathy of left eye with macular edema associated with type 2 diabetes mellitus Impression/Plan Related to Proli ferative diabetic retinopathy of right eye without macular edema associated with type 2 diabetes mellitus Impression/Plan Related to Epire tinal membrane (ERM) of left eye Impression/Plan Related to PVD ( posterior vitreous detachment), both eyes Diabetes, Type 2, wi thout Retinopathy Condition: chronic. - Emphasized blood sugar control. Related to Diabetes, Type 2, without Retinopathy Pseudophakia OU Related to Pseud ophakia Macular Edema OS Con dition: established, stable. - See above. Related to Macular Edema Branch Retinal Vein Occlusion OS Condition: stable. - Defer injection today. [facility]. Call if any problems or changes. 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 - Emphasized blood sugar control. Related to Diabetes, Type 2, without Retinopathy Pseudophakia OU Related to Pseud ophakia Macular Edema OS Con dition: improving. - Significant macular edema is present. An intravitreal Lucentis .3mg injection was done without complication after discussion of risks and benefits. Patient understands that any visual problems should be reported to us promptly. Related to Macular Edema Branch Retinal Vein Occlusion OS Condition: stable. - I recommend continuing with Lucentis injections to see if we can get the edema to decrease further and the vision to increase even more. Related to Branch Retinal Vein Occlusion - Return in 1 month Related to B ranch Retinal Vein Occlusion Pseudophakia OU Related to Pseud ophakia Diabetes, Type 2, wi thout Retinopathy Condition: established, stable. - Patient understands the importance of compliance. 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 - See above. Related to Branch Retinal Vein Occlusion Macular Edema OS Con dition: moderate, acute, stable, secondary to BRVO - Significant macular edema is present. An intravitreal anti-VEGF injection was done without complication after discussion of risks and benefits. Patient understands that any visual problems should be reported to us promptly. 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 Related to Branch Retinal Vein Occlusion - Return in 2 months Related to Macular Edema Macular Edema OS Con dition: moderate, chronic. - Lucentis .5 given OS Related to Macular Edema Pseudophakia OU Related to Pseud ophakia Diabetes, Type 2, wi thout Retinopathy - Encouraged compliance Related to Diabetes, Type 2, without Retinopathy Cataract, Nuclear OU Condition: established. 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 - See above. Related to Branch Retinal Vein Occlusion Macular Edema OS Con dition: moderate, chronic, stable. - Significant macular edema is present secondary to BRVO. An intravitreal anti-VEGF injection was done without complication after discussion of risks and benefits. Patient understands that any visual problems should be reported to us promptly. Related to Macular Edema - Return in [address] Momin for OCT and possible Lucentis. Related to Macular Edema Cataract, Nuclear OU - Surgery scheduled with Dr. Cheng Related to Cataract, Nuclear Diabetes, Type 2, wi thout Retinopathy - Patient understands the importance of compliance. 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 - Significant macular edema is present. An intravitreal anti-VEGF injection was done without complication after discussion of risks and benefits. Patient understands that any visual problems should be reported to us promptly. Related to Macular Edema - Return in 7 weeks oct pos cr .5 Related to Macular Edema Diabetes, Type 2, wi thout Retinopathy Condition: established. - Emphasized blood sugar control. Related to Diabetes, Type 2, without Retinopathy Cataract, Nuclear OU Related to Cataract, Nuclear Macular Edema OS Con dition: stable. - Significant macular edema is present. An intravitreal Lucentis injection was done without complication after discussion of risks and benefits. Patient understands that any visual problems should be reported to us promptly. 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 - Discussed diagnosis in detail with patient. Will continue to observe condition and or symptoms. Related to Branch Retinal Vein Occlusion - Return in 1 month Related to B ranch Retinal Vein Occlusion Cataract, Nuclear OU Condition: established, worsening. Related to Cataract, Nuclear Macular Edema OS Con dition: persistent. 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 - Significant macular edema is present. An intravitreal anti-VEGF injection was done without complication after discussion of risks and benefits. Patient understands that any visual problems should be reported to us promptly. Related to Branch Retinal Vein Occlusion - Return in 1 Related to [facility] h Retinal Vein Occlusion Assessments Type Assessment Date No Information Patient Care Teams Name Effective Dates (start - stop) Status Members No Information
--- OUTSIDE RECORDS SUMMARY | 2025-02-13 12:00 | XMS_ITS ---
Author Organization [facility] in [place] Address [address] [place] [address] Care Team Providers Care Corporate Traffic Manager Name Role Phone Stephanie Ley Primary Care Provider Brenda Brownlee [phone] Encounters Encounter Location Date Provider Diagnosis [facility] [place] [address] [place] [phone] 02/13/2025 Brenda Mack Plan Of Treatment No Information Progress Notes * Cuca GOODWIN YDOB:[birth year] (80 yo F)Acc No.[id number]:02/13/2025 UNLOCKED PROGRESS NOTE Progress Note Patient: Cuca WARNER :?KAIDEN RandallDOB:1945???Age: 79 Y???Sex:FemaleDate:02/13/2025Phone:[phone]:[address] [place] [id number]:Stephanie Ley Subjective: * Chief Complaints: * * Medical History: Objective: * Vitals: Assessment: Plan: * Treatment: * * Electronic signature of KAIDEN Randall APRN.[id number] on 09/10/2025 at 03:20 AM EDTSign off status: PendingVisit Status:?CANC (Cancelled) * Provider: KAIDEN Stewart Date: 0 02/13/2025 Generated for Printing/Faxing/eTransmitting on:?09/10/2025 03:20 AM EDT
--- OUTSIDE RECORDS SUMMARY | 2025-06-27 08:40 | XMS_ITS ---
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 Name Role Phone Stephanie Ley Primary Care Provider Raul Prince [phone] Encounters Encounter Location Date Provider Diagnosis [facility] [address] [address] 06/27/2025 Raul Arellano Plan Of Treatment No Information Progress Notes * Cuca GOODWINDOB:[birth year] (80 yo F)Acc No.[id number]:06/27/2025 UNLOCKED PROGRESS NOTE Progress Note Patient: Cuca WARNER :?Raul Arellano M.D.:1945???Age:80 Y ???Sex:FemaleDate:06/27/2025Phone:[phone]:[address] [place] [id number]:Stephanie Ley Subjective: * Chief Complaints: * * Medical History: Objective: * Vitals: Assessment: Plan: * Treatment: * * Electronic signature of Raul Arellano MD, [id number] on 09/10/2025 at 03:19 AM EDTSign off status: PendingVisit Status:?CANC (Cancelled) * Provider: Vicki Arellano M.D. Date: 0 06/27/2025 Generated for Printing/Faxing/eTransmitting on:?09/10/2025 03:19 AM EDT
--- OUTSIDE RECORDS SUMMARY | 2025-08-31 10:31 | XMS_ITS | Encounter Summary ---
Author Organization [facility] tem Address [id number] [address] [place] [address] Care Team Providers Care Ointment Mill Tender Name Role Phone Jaylan Gray APRN-ASSISTANT MANAGER Primary Care Provider + Reason for Referral * Diagnostic Imaging (Routine) - Pending ReviewSpecialtyDiagnoses / Procedures Referred By ContactReferred To ContactRadiology Diagnoses Malignant neoplasm of upper-outer quadrant of right breast in female, estrogen receptor positive (CMS-HCC) Malignant neoplasm of upper-outer quadrant of right female breast, unspecified estrogen receptor status (CMS-HCC) Metastasis to bone (CMS-HCC) Procedures PET CT skull to thigh Casimiro Leary MD [facility] [employer] [facility] [address] [place] [address] Phone: tel: fax: Referral IDStatusReasonStart DateExpiration DateVisits RequestedVisits [id number] Review/ Reason for Visit * Diagnostic Imaging (Routine) - Pending ReviewSpecialtyDiagnoses / Procedures Referred By ContactReferred To ContactRadiology Diagnoses Malignant neoplasm of upper-outer quadrant of right breast in female, estrogen receptor positive (CMS-HCC) Malignant neoplasm of upper-outer quadrant of right female breast, unspecified estrogen receptor status (CMS-HCC) Metastasis to bone (CMS-HCC) Procedures PET CT skull to thigh Casimiro Leary MD [facility] [employer] [address] [place] [address] [place] [address] Phone: tel: fax: Referral Isabela DateExpiration DateVisits RequestedVisits [id number] Review/ Encounter Details DateTypeDepartmentCare Team (Latest Contact Info)Tmexsvromke34/17/2025 10:31 AM EDT - 08/31/2025 11:59 PM EDTHospital Encounter Shauna Landaverde [facility] - Pet Imaging [address] [place] [address] Malignant neoplasm of upper-outer quadrant of right breast in female, estrogen receptor positive (CMS-HCC); Malignant neoplasm of upper-outer quadrant of right female breast, unspecified estrogen receptor status (CMS-HCC); Metastasis to bone (CMS-HCC) Discharge Disposition: Home Social History Tobacco UseTypesPacks/DayYears UsedDateSmoking Tobacco: NeverSmokeless Tobacco: NeverAlcohol UseStandard Drinks/WeekCommentsNo0 (1 standard drink = 0.6 oz pure alcohol)[facility] UtilitiesAnswerDate RecordedIn the past 12 months has the electric, gas, oil, or water [employer] threatened to shut off services in your home?No 07/12/2025Social Connection and Isolation PanelAnswerDate RecordedIn a typical week, how many times do you talk on the phone with family, friends, or neighbors?Never10/28/2024How often do you get together with friends or relatives?More than three times a week10/28/2024How often do you attend judaism or shinto services?More than 4 times per year10/28/2024o you belong to any clubs or organizations such as judaism groups, unions, fraternal or athletic roque ups, or school groups?Yes10/28/2024How often do you attend meetings of the clubs or organizations you belong to?More than 4 times per year10/28/2024re you , , , , never , or living with a partner? Never ijtlovq2210/28/2024UDIT-CAnswerDate RecordedQ1: How often do you have a drink containing alcohol?Never07/12/2025Q2: How many drinks containing alcohol do you have on a typical day when you are drinking?Patient does not drink 07/12/2025Q3: How often do you have six or more drinks on one occasion?Never 07/12/2025Overall Financial Resource Strain (CARDIA)AnswerDate RecordedHow hard is it for you to pay for the very basics like food, housing, medical care, and heating?Somewhat hard10/28/2024HQ-2AnswerDate RecordedTotal [id number] [facility] of Occupational Health - Occupational Stress Questionnaire AnswerDate RecordedDo you feel stress - tense, restless, nervous, or anxious, or unable to sleep at night because yourmind is troubled all the time - these days? To some ewzguo3010/28/2024Exercise Vital SignAnswerDate RecordedOn average, how many days per week do you engage in moderate to strenuous exercise (like a brisk walk)?0 days10/28/2024On average, how many minutes do you engage in exercise at this level?0 min10/28/2024RAPARE - TransportationAnswerDate RecordedIn the past 12 months, has lack of transportation kept you from medical appointments or from getting medications?No07/12/2025In the past 12 months, has lack of transportation kept you from meetings, work, or from getting things needed for daily living?No07/12/2025Housing InstabilityAnswerDate RecordedAre you worried or concerned that in the next two months you may not have stable housing that you own, rent or stay in as a part of a household?No07/12/2025hildcareAnswer Date RecordedDo problems getting children counselor make it difficult for you to work or study?No10/28/2024EmploymentAnswerDate RecordedDo you need help finding a local career center and/or a training program?No10/28/2024Hunger ScreeningAnswerDate RecordedWithin the past 12 months we worried whether our food would run out before we got money to buy more.Never True08/01/2025Within the past 12 months the food we bought just didn't last and we didn't have money to get more.Never True08/01/2025Purpose - LifeAnswerDate RecordedI have a purpose and direction in my life.Agree10/28/2024CommentsNoSex and Gender InformationValueDate RecordedSex Assigned at BirthNot on fileLegal UybXlllzv02/06/2015 11:55 AM EDT Gender NwdjkxapYocump19/07/2020 8:20 PM EDTSexual PlkvfpqvxznHjnfeoyd76/21/2022 8:20 AM ESTdocumented as of this encounter Last Filed Vital Signs Vital SignReadingTime TakenCommentsBlood Pressure--Pulse--Temperature-- Respiratory Rate--Oxygen Saturation--Inhaled Oxygen Concentration--Wwjkgr53.6 kg (171 lb)08/31/2025 11:21 AM EDTHeight--Body Mass Index28.4608/22/2025 10:07 AM EDTdocumented in this encounter Medications at Time of Discharge MedicationSigDispense QuantityRefillsLast FilledStart DateEnd Date acetaminophen (TYLENOL EXTRA STRENGTH) 500 mg tablet Take 2 tablets (1,000 mg total) by mouth every 8 (eight) hours.07/18/2025 busPIRone (BUSPAR) 5 mg tablet Take 1 tablet (5 mg total) by mouth 3 (three) times a day.07/05/2025 calcium citrate-vitamin D3 500 mg-12.5 mcg /5 gram powder in packet Take by mouth. cholecalciferol, vitamin D3, 2,000 units tablet Take 1 tablet (2,000 Units total) by mouth in the morning.07/19/2025 cyanocobalamin 1000 MCG tablet Take 1 tablet (1,000 mcg total) by mouth in the morning.02/25/2025 docusate sodium (COLACE) 100 mg capsule Take 1 capsule (100 mg total) by mouth in the morning and 1 capsule (100 mg total) before bedtime.07/18/2025 ergocalciferol (DRISDOL) 1,250 mcg (50,000 unit) capsule Take 1 capsule (50,000 Units total) by mouth once a week.07/20/2025 ferrous sulfate 325 (65 FE) MG tablet Take 1 tablet (325 mg total) by mouth daily with breakfast.07/18/2025 furosemide (LASIX) 20 mg tablet Take 1 tablet (20 mg total) by mouth daily.05/16/2025 gabapentin (NEURONTIN) 300 mg capsule Indications: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 mellitus ([facility]-HCC)Take 1 capsule (300 mg total) by mouth in the morning. 30 capsule glucagon (GLUCAGEN DIAGNOSTIC KIT INJ) Inject as directed. insulin glargine (LANTUS, SEMGLEE) 100 unit/mL (3 mL) insulin pen Inject 10 Units under the skin nightly. 15 mL 07/05/2025 insulin lispro (HumaLOG) 100 unit/mL insulin pen Inject 2-10 Units under the skin 4 (four) times a day with meals and nightly. 151-200 mg/dL, give 2units. 201-250 mg/dL, give 4 units. 251-300 mg/dL, give 6 units. 301-350 mg/dL, give 8 units 351-400 mg/dL, give 10 units 15 mL [address]/24/2025 letrozole (FEMARA) 2.5 mg chemo tablet Take 1 tablet by mouth daily 90 tablet lidocaine (SALONPAS) 4 % Place 1 patch on the skin daily. 30 patch 05/29/2025 loratadine (CLARITIN) 10 mg tablet Take 1 tablet (10 mg total) by mouth before bedtime. magnesium oxide (MAGOX) 400 mg tablet Take 1 tablet (400 mg total) by mouth in the morning.07/05/2025 mineral oil (FLEET) enema Insert into the rectum once. mirtazapine (REMERON) 7.5 mg tablet Indications:Insomnia, unspecified typeTake 1 tablet (7.5 mg total) by mouth nightly. 90 tablet ondansetron (ZOFRAN) 4 mg tablet Take 1 tablet (4 mg total) by mouth every 6 (six) hours as needed for nausea or vomiting. pantoprazole (PROTONIX) 40 mg EC tablet Take 1 tablet (40 mg total) by mouth every morning before breakfast.07/19/2025 polyethylene glycol (GLYCOLAX) 17 gram packet Take 17 g by mouth in the morning and at bedtime.07/18/2025 traZODone (DESYREL) 100 mg tablet Indications:Insomnia, unspecified typeTAKE 1 TABLET BY MOUTH EVERY DAY AT NIGHT 90 tablet enoxaparin (LOVENOX) 40 mg/0.4 mL syringe Inject 0.4 mL (40 mg total) under the skin in the morning for 30 doses. 15 mL senna (SENOKOT) 8.6 mg tablet Take 2 tablets (17.2 mg total) by mouth nightly as needed for constipation for up to 30 days. sertraline (ZOLOFT) 100 mg tablet Take 1 tablet (100 mg total) by mouth in the morning. 30 tablet documented as of this encounter Plan of Treatment DateTypeDepartmentCare Team (Latest Contact Info)Dmjttrtsdrs98/31/2025 10:15 AM EDTOffice Visit [facility] - Medical Oncology [address] [place] [phone] Casimiro Leary MD [address] [place] [address] [address] [place], [place] [id number] 09/17/2025 2:15 PM ESTOffice Visit [facility] [address] [phone] Tawny Engel MD [address] [place] [address] Irina Brunner MD [address] [place] [address] 10/03/2025 1:45 PM ESTOffice Visit [facility] [address] [place] [phone] Ra Marinelli MD [address] [place] [address] documented as of this encounter Goals GoalPatient Goal TypeAssociated ProblemsRecent ProgressPatient-Stated?Author SNF Discharge Bethany Austin, GABBY Note: Patient would only [facility] to discharge to [facility], if not patient would like to return home. documented as of this encounter Procedures Procedure NamePriorityDate/TimeAssociated DiagnosisCommentsPET CT SKULL TO THIGH Gzosnre8208/31/2025 2:12 PM EDT Malignant neoplasm of upper-outer quadrant of right breast in female, estrogen receptor positive (CMS-HCC) Malignant neoplasm of upper-outer quadrant of right female breast, unspecified estrogen receptor status (CMS-HCC) Metastasis to bone (CMS-HCC) documented in this encounter Results * PET CT skull to thigh (08/31/2025 2:12 PM EDT)Anatomical RegionLaterality ModalityNuc MedN/APositron Emission Tomography (PET)Specimen (Source) Anatomical Location / LateralityCollection Method / VolumeCollection Time Received Time09/03/2025 10:21 AM EDT Narrative 09/03/2025 10:46 AM EDT FDG PET/CT INDICATION: Malignant neoplasm of upper-outer quadrant of right breast in female, estrogen receptorpositive (CMS-HCC); restaging PRIOR PET/CT: 02/18/2024 CORRELATIVE ANATOMIC IMAGING: MR pelvis 07/12/2025 PROCEDURE: PET/CT was performed following intravenous administration of 9.6 mCi F-18 FDG with images obtained from the skull base through the thighs. Fasting glucose was 187 mg/dL at the time of administration.Injection site: Right hand. CT was performed utilizing free breathing technique and nondiagnostic collimation for the purposes attenuation correction and localization of radiotracer activity. FINDINGS: ??Overall PET and CT image quality and inter-modality registration are satisfactory. Liver Reference: SUVmean 3.3 Blood Pool: SUVmean 3.2 Head and Neck: Physiologic FDG uptake within the head and neck. Thorax: Hypermetabolic but nonenlarged left axillary lymph node is nonspecific, SUV max 4.8 Abdomen and Pelvis: Mild hypermetabolism at the gallbladder fundus, likely related to adenomyomatosis. Nonspecific multifocal bowel uptake without anatomic correlate. Otherwise physiologic FDG uptakewithin the abdomen/pelvis. Osseous Structures: Widespread multifocal osseous metastatic disease involving the sternum, multifocal spine, bilateral pelvis, bilateral femurs bilateral clavicles, right scapula. Multifocal uptake bilateral ribs corresponding to healing changes, could be solely posttraumatic inetiology, though suspect pathologic fractures given extent of osseous metastatic disease. CT Findings: TAVR. Severe Coronary artery calcium occasions. Ventriculoperitoneal catheter terminates in the right lower quadrant. 6.4 cm left adnexal cystic lesion. Bilateral femoral prostheses. IMPRESSION: * ??Widespread osseous metastatic disease throughout the visualized axial and proximal appendicularskeleton. * ??Hypermetabolic but nonenlarged left axillary lymph node is nonspecific, could be infectious, inflammatory, or neoplastic in etiology. Correlate for recent ipsilateral vaccination. Finalized by Lacho Soliman on 09/03/2025 10:46 AM Procedure Note Lacho Soliman MD - 09/03/2025 FDG PET/CT INDICATION: Malignant neoplasm of upper-outer quadrant of right breast infemale, estrogen receptor positive (CMS-HCC); restaging PRIOR PET/CT: 02/18/2024 CORRELATIVE ANATOMIC IMAGING: MR pelvis 07/12/2025 PROCEDURE: PET/CT was performed following intravenous administration of 9.6 mCi F-18FDG with images obtained from the skull base through the thighs. Fastingglucose was 187 mg/dL at the time of administration. Injection site: Righthand. CT was performed utilizing free breathing technique andnondiagnostic collimation for the purposes attenuation correction and localization of radiotracer activity. FINDINGS: Overall PET and CT image quality and inter-modalityregistration are satisfactory. Liver Reference: SUVmean 3.3 Blood Pool: SUVmean 3.2 Head and Neck: Physiologic FDG uptake within the head and neck. Thorax: Hypermetabolic but nonenlarged left axillary lymph node isnonspecific, SUV max 4.8 Abdomen and Pelvis: Mild hypermetabolism at the gallbladder fundus, likely related to adenomyomatosis. Nonspecific multifocal bowel uptake withoutanatomic correlate. Otherwise physiologic FDG uptake within theabdomen/pelvis. Osseous Structures: Widespread multifocal osseous metastatic diseaseinvolving the sternum, multifocal spine, bilateral pelvis, bilateralfemurs bilateral clavicles, right scapula. Multifocal uptake bilateral ribs corresponding to healing changes, couldbe solely posttraumatic in etiology, though suspect pathologic fracturesgiven extent of osseous metastatic disease. CT Findings: TAVR. Severe Coronary artery calcium occasions.Ventriculoperitoneal catheter terminates in the right lower quadrant. 6.4cm left adnexal cystic lesion. Bilateral femoral prostheses. IMPRESSION: * Widespread osseous metastatic disease throughout the visualized axialand proximal appendicular skeleton. * Hypermetabolic but nonenlarged left axillary lymph node is nonspecific,could be infectious, inflammatory, or neoplastic in etiology. Correlatefor recent ipsilateral vaccination. Finalized by Lacho Soliman on 09/03/2025 10:46 AM Authorizing ProviderResult TypeResult StatusChang Joana Leary MDIMHemant PET ORDERABLES Final Result documented in this encounter Visit Diagnoses Diagnosis Malignant neoplasm of upper-outer quadrant of right female breast, unspecified estrogen receptor status (CMS-HCC) Metastasis to bone (CMS-HCC) Secondary malignant neoplasm of bone and bone marrow documented in this encounter Administered Medications Medication OrderMAR ActionAction DateDoseRateSite fluorodeoxyglucose F 18 (FDG) injection 10.864 millicurie 10.864 millicurie (0.14 isacc curie/kg ?? 77.6 kg), intravenous, Once in imaging, contrast, Radiopharmaceutical, Starting on Wed08/31/25 at 1121, For 1 dose, Indications: diagnostic imaging Indications:diagnostic qlfdjhzYqtlb10/17/2025 10:56 AM EDT10.864 millicuries sodium chloride 0.9 % flush 10 mL 10 mL, intravenous, As needed, line care, PET CT, Starting on Wed08/31/25 at 1121, For 1 dose Given08/31/2025 10:56 AM EDT10 mLdocumented in this encounter Additional Health Concerns AssessmentNoted TimePHQ-9 Depression Total Score: 2:24 PM EDTA Body Mass Index follow-up plan has been documented for the ulgyidb8104/04/2025 3:37 PM EDTdocumented as of this encounter Care Teams Team MemberRelationshipSpecialtyStart DateEnd Date Jaylan Gray, SUPERVISOR CORE DRILLING-ASSISTANT MANAGER [address] [place] [address] PCP - GeneralNurse Practitioner05/30/25documented as of this encounter
[2025-09-10] VITALS (47 sets, daily range): BP systolic 95–162; BP diastolic 50–97; PULSE 75–106; TEMP 36.7–37.3; O2SAT 90–99; BMI 22.9
--- NOTE | 2025-09-10 03:15 | ECG_ITS ---
[facility] Test Date: 2025-09-10 Pat Name: TERESA GOODWIN Department: Room: - Gender: Female Medical Researcher: : 1945 Requested By: [id number] Order Number: [id number] Reading MD: HANNAH CHEN M.D. Measurements Intervals [place] Rate: 75 P: 33 [place]: 162 QRS: -21 QRSD: 150 T: 125 QT: 416 QTc: 445 Interpretive Statements 1100 Sinus rhythm with occasional supraventricular premature complexes LEFT BUNDLE BRANCH BLOCK 9150 abnormal ECG Compared to ECG 06/30/2025 14:17:03 Supraventricular premature complex(es) now present Electronically Signed On 09-10-2025 18:02:44 EDT by HANNAH CHEN M.D.
--- OUTSIDE RECORDS SUMMARY | 2025-09-10 03:18 | XMS_ITS ---
[facility] Care Plan Created on: September 03, 2025 Cuca Dee : 1945 Sex: Female Author Organization [employer] Address [address] [place] [address] [address] [place] [address] Phone Health Concerns Health Status CKD 4 Health Concerns None
--- OUTSIDE RECORDS SUMMARY | 2025-09-10 03:19 | XMS_ITS | Encounter Summary ---
Author Organization [facility] Address [id number] [place] [address] Care Team Providers Care Hot Knife Cutter Name Role Phone Jaylan Gray Vicki JENKINS-LOOSELEAF BINDER COVERER Primary Care Provider + Encounter Details DateTypeDepartmentCare Team (Latest Contact Info)Tqbrqhsovdw11/24/2025Results Follow-Up [facility] [address] [place] [address] Shanta Tyson, GABBY Blood culture, Blood culture Social History Tobacco UseTypesPacks/DayYears UsedDateSmoking Tobacco: NeverSmokeless Tobacco: NeverAlcohol UseStandard Drinks/WeekCommentsNo0 (1 standard drink = 0.6 oz pure alcohol)[facility] UtilitiesAnswerDate RecordedIn the past 12 months has the [employer], gas, oil, or water [employer] threatened to shut off services in your home?No 07/12/2025Social Connection and Isolation PanelAnswerDate RecordedIn a typical week, how many times do you talk on the phone with family, friends, or neighbors?Never10/28/2024How often do you get together with friends or relatives?More than three times a week10/28/2024How often do you attend episcopal or denominational services?More than 4 times per year10/28/2024o you belong to any clubs or organizations such as episcopal groups, unions, fraternal or athletic roque ups, or school groups?Yes10/28/2024How often do you attend meetings of the clubs or organizations you belong to?More than 4 times per year10/28/2024re you , , , , never , or living with a partner? Never atbxdaz9410/28/2024UDIT-CAnswerDate RecordedQ1: How often do you have a [...] housing, medical care, and heating?Somewhat hard10/28/2024HQ-2AnswerDate RecordedTotal Unint722 [facility] [employer] - Occupational Stress Questionnaire AnswerDate RecordedDo you feel stress - tense, restless, nervous, or anxious, or unable to sleep at night because yourmind is troubled all the time - these days? To some opqxwj2910/28/2024Exercise Vital SignAnswerDate RecordedOn average, how many days [...] or from getting things needed for daily living?07/12/2025Housing InstabilityAnswerDate RecordedAre you worried or concerned that in the next two months you may not have stable housing that you own, rent or stay in as a part of a household?No07/12/2025hildcareAnswer Date RecordedDo problems getting child development professor make it difficult for you to work [...] have a purpose and direction in my life.Agree4CommentsNoSex and Gender InformationValueDate RecordedSex Assigned at BirthNot on fileLegal DukMckkxl21/06/2015 11:55 AM EDT Gender WkfshzysNvzetp02/07/2020 8:20 PM EDTSexual DpnbvuegbjzJxexvihy23/21/2022 8:20 AM ESTdocumented as of this encounter Functional Status * AUDIT-C ScoreAnswerDate of LzeavepgpeOvooeo333/28/2025 2:23 PM Ursula Kurtz RN * QuestionAnswerDate of AssessmentAuthorQ1: How often do you have a drink containing alcohol?Never07/12/2025 2:23 PM Ursula Kurtz RNQ2: How many drinks containing alcohol do you have on a typical day when you are drinking? Patient does not drink07/12/2025 2:23 PM Ursula Kurtz RNQ3: How often do you have six or more drinks on one occasion?Never07/12/2025 2:23 PM Ursula Patel RN * QuestionAnswerDate of AssessmentAuthorFunctional StatusMinimum assistance 07/12/2025 2:17 PM Ursula Kurtz RN documented as of this encounter Mental Status * QuestionAnswerEntry DateAuthorOverall Cognitive LvzekdG8207/16/2025 9:41 AM EDT Aide Sewell PTA documented in this encounter Plan of Treatment DateTypeDepartmentCare Team (Latest Contact Info)Ymsxejmahsl43/31/2025 10:15 AM EDTOffice Visit Stephany Carnes [facility] - Medical Oncology [address] [place] [phone] Casimiro Leary MD [address] [facility] [address] [place] [address] 09/17/2025 2:15 PM ESTOffice Visit [facility] [address] [place] [phone] Tawny Engel MD [address] [place] [address] Irina Brunner MD [address] [place] [address] 10/03/2025 1:45 PM ESTOffice Visit [facility] [address] [place] [phone] Ra Marinelli MD [address] [place] [address] documented as of this encounter Goals GoalPatient Goal TypeAssociated ProblemsRecent ProgressPatient-Stated?Author SNF Discharge Bethany Austin RN Note: Patient would only like to discharge to [facility], if not patient would like to return home. documented as of this encounter Visit Diagnoses Not on filedocumented in this encounter Additional Health Concerns AssessmentNoted TimePHQ-9 Depression Total Score: 1:02 PM EDTA Body Mass Index follow-up plan has been documented for the nwbtnwv9104/04/2025 3:37 PM EDTdocumented as of this encounter Care Teams Team MemberRelationshipSpecialtyStart DateEnd Date Jaylan Gray, LEAD DATA ENTRY OPERATOR-LOOSELEAF BINDER COVERER [address] [place] [address] PCP - GeneralNurse Practitioner05/30/25documented as of this encounter
--- OUTSIDE RECORDS SUMMARY | 2025-09-10 03:19 | XMS_ITS | Clinical Summary ---
Author Organization [facility] Address [address] [place] [address] Care Team Providers Care Creosoting Engineer Name Role Phone Dami Martell MD Unavailable Allergies No known active allergies Medications MedicationSigDispense QuantityRefillsLast FilledStart DateEnd DateStatus aspirin 81 mg chewable tablet aspirin 81 mg tablet Take by oral route.Active pen needle, diabetic 32 gauge x 5/32 needle BD Morelia 2nd Gen Pen Needle 32 gauge x 5/32 USE DIRECTED FOUR TIMES DAILYActive FreeStyle Kartik reader (FreeStyle Kartik 14 Day Shiner) misc FreeStyle Kartik 14 Day ReaderActive blood sugar diagnostic (OneTouch Ultra Test) strip OneTouch Ultra Test strips 1 STRIP BY OTHER ROUTE 4 (FOUR) TIMES A DAY BEFORE MEALS AND NIGHTLY.Active blood sugar diagnostic (ONETOUCH ULTRA BLUE TEST STRIP [facility]) OneTouch Ultra Blue Test StripActive FreeStyle Kartik sensor system (FreeStyle Kartik 14 Day Sensor) kit FreeStyle Kartik 14 Day Sensor kitActive acetaminophen (Tylenol) 500 mg tablet Take 500 mg by mouth every 6 (six) hours if needed.Active amLODIPine (Norvasc) 5 mg tablet amlodipine 5 mg tablet TAKE 1 TABLET (5 MG TOTAL) BY MOUTH IN THE MORNING.02/09/2023ctive atorvastatin (Lipitor) 80 mg tablet Take 80 mg by mouth in the morning.09/29/2022ctive atorvastatin (Lipitor) 20 mg tablet atorvastatin 20 mg tablet TAKE 1 TABLET BY MOUTH EVERY DAY FOR 30 DAYSActive cefuroxime (Ceftin) 250 mg tablet cefuroxime axetil 250 mg tabletActive cholecalciferol, vitamin D3, 50 mcg (2,000 unit) capsule cholecalciferol (vitamin D3) 50 mcg (2,000 unit) capsule TAKE 1 CAPSULE BY MOUTH EVERY DAY04/22/2022ctive clopidogrel (Plavix) 75 mg tablet Take 75 mg by mouth in the morning.09/29/2022ctive hydroCHLOROthiazide (HYDRODiuril) 25 mg tablet hydrochlorothiazide 25 mg tablet TAKE 1 TABLET BY MOUTH EVERY DAYActive furosemide (Lasix) 20 mg tablet Take 20 mg by mouth in the morning.10/06/2022ctive ferrous sulfate 325 (65 Fe) MG EC tablet Take 325 mg by mouth.10/06/2022ctive insulin detemir (Levemir FlexPen) 100 unit/mL (3 mL) pen Levemir FlexTouch U-100 Insulin 100 unit/mL (3 mL) subcutaneous pen INJECT 25 UNITS AT LMWSHMA3803/09/2023ctive insulin lispro (HumaLOG) 100 unit/mL injection Humalog KwikPen (U-100) Insulin 100 unit/mL subcutaneous INJECT 4-5-6 UNITS TO MEAL SIZE PLUS ISS#2 ( EXPEXT DAILY DOSE 20 UNITS)Active lancets 33 gauge [facility] USE FOUR TIMES A DAY. ICD 10 E11.291ctive miscellaneous medical supply [facility] 01/01/2021ctive melatonin 10 mg capsule TAKE 2 CAPSULES BY MOUTH EVERY DAY POOWOEZ3403/16/2022ctive metoprolol tartrate (Lopressor) 50 mg tablet Take 50 mg by mouth.Active mupirocin (Bactroban) 2 % ointment mupirocin 2 % topical ointment APPLY TO AFFECTED AREA IN THE MORNING AND BEFORE SIDEPNR9903/11/2022ctive oxybutynin (Ditropan) 5 mg tablet Take 5 mg by mouth.Active pantoprazole (ProtoNix) 40 mg packet Take 40 mg by mouth.Active sertraline (Zoloft) 100 mg tablet Take 1.5 tablets by mouth in the morning.Active SITagliptin phosphate (Januvia) 50 mg tablet Januvia 50 mg tablet TAKE 1 TABLET BY MOUTH EVERY DAY02/09/2023ctive letrozole (Femara) 2.5 mg chemo tablet Take by mouth in the morning Take with or without food.Active amoxicillin (Amoxil) 500 mg tablet TAKE 4 TABLETS BY MOUTH ONE HOUR PRIOR TO PROCEDURE.07/15/2023ctive Dexcom G6 Transmitter device CHANGE EVRY 90 DAYS.07/22/2023ctive Dexcom G6 Shuttle Filler misc See administration instructions.05/06/2023ctive traMADol (Ultram) 50 mg tablet PLEASE SEE ATTACHED FOR DETAILED EZCCRCJCIW26/11/2023ctive gabapentin (Neurontin) 300 mg capsule TAKE 1 CAPSULE (300 MG TOTAL) BY MOUTH IN THE MORNING AND BEFORE BEDTIME 03/05/2024ctive traZODone (Desyrel) 100 mg tablet TAKE 1 TABLET BY MOUTH EVERY DAY AT NIGHT03/02/2024ctive Dexcom G7 Sensor device USE AND CHANGE SENSOR EVERY 10 DAYS01/16/2025tive insulin aspart (NovoLOG) 100 unit/mL (3 mL) injection pen 12/29/2024tive Lantus Solostar U-100 Insulin 100 unit/mL (3 mL) injection pen Inject under the skin.12/07/2024tive lisinopril 5 mg tablet Take 5 mg by mouth in the morning.Active magnesium oxide (Mag-Ox) 400 mg (241.3 mg magnesium) tablet Take 400 mg by mouth in the morning.02/24/2025tive nystatin (Mycostatin) 100,000 unit/gram powder Apply 1 Application topically 4 times a day.09/06/2024ctive mirtazapine (Remeron) 7.5 mg tablet 04/22/2025tive doxycycline (Vibra-Tabs) 100 mg tablet Take 100 mg by mouth two times daily. Take with a full glass of water and do not lie down for at least 30 minutes after.Active Active Problems ProblemNoted DateDiagnosed DateAtrial fibrillation with RVR01/22/2025ltered mental vzshzz0708/23/2024Metastasis to bone03/09//12/2023S/p TAVR (transcatheter aortic valve replacement), qbqyjqgwprchd58/12/202305/12/2023 Atypical squamous cell changes of undetermined significance (ASCUS) on cervical cytology with positive high risk human papilloma virus (HPV)03/30/2023losed nondisplaced fracture of left pubis with routine rikacgq84/12/2023 Malignant neoplasm of upper-outer quadrant of right breast in female, estrogen receptor hsagheez63/04/2023KI (acute kidney injury)01/13/20236954Fgjsrn99/01/2023 CKD (chronic kidney disease)01/13/2023Family history of coronary kvevdxsvlitmcenh46/01/2023History of blood ksptywzgmlc11/01/2023Tremors of nervous sfvozh2101/13/2023Type 2 diabetes mellitus with diabetic neuropathy, with long-term current use of pntbppx4401/13/2023S/P angioplasty with stent12/07/2022 Acute on chronic diastolic heart khevlmq5910/05/2022Elevated d-dimer10/05/2022 History of non-ST elevation myocardial infarction (NSTEMI)10/05/2022History of azsnuanyv80/21/2022evere aortic valve ydgfwaiq78/21/2022OB (shortness of breath)10/05/2022tage 3b chronic kidney zcwcfyu9510/05/2022NSTEMI (non-ST elevated myocardial infarction)09/29/2022ommunity acquired bacterial pneumonia 09/28/2022pinal stenosis of lumbar region with neurogenic claudication 07/15/2022 Overview (03/22/2023): Added automatically from request for surgery [id number] Acute cystitis without pynqnrelw07/12/2022thscl heart disease of [place] coronary artery w/o ang /14/2021Other abnormalities of gait and mobility 10/12/2021hronic obstructive pulmonary gefhmij33/06/2021Edema of lower zbqriqmby22/26/2020Left bundle branch block03/26/2020Mixed diabetic hyperlipidemia associated with type 2 diabetes /27/2020GI bleed 10/17/20195784Zbnzhe45/07/2019Obstructive sleep apnea /07/2019Cerebral vhknrbzysmtksghb81/07/2019Renal failure cpjdwykm09/07/2019Confusional state 09/21/20191089Fkdxtanef47/07/2019Essential (primary) dkmsqfrokpux94/07/2019 Gastroesophageal reflux ymbuzia2209/21/20195263Bxpihuzldbuseo53/07/2019Nausea 09/21/2019Murmur, hzjpouh3009/21/20197218Yvefqma17/07/2019Diabetes gywedbnc98/07/2019 Type 1 diabetes zinljsrh56/07/2019Urinary tract infectious xhoyufh8509/21/2019 03/16/2024Wears brwedffx11Normal pressure hydrocephalus 09/05/2019Moderate episode of recurrent major depressive /02/2019 Lumbar xzdedwopxgp12/31/2019Primary osteoarthritis of both knees10/26/2018Disc displacement, ydsepk0706/27/2018 Overview (03/22/2023): Added automatically from request for surgery [id number] Lumbar back pain with radiculopathy affecting left lower ofquuxnah84/16/2018 Overview (03/22/2023): Exacerbation, Chronic Anemia, chronic kmynlqb9809/07/2017GERD without sucsnbpsmyg87/11/2017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 outzbnkx96/11/2017PVD (peripheral vascular disease) 05/25/2017 Encounters DateTypeDepartmentCare BkakUzotoqprlul61/16/2025 1:00 PM EDTFollow-Up [facility] [address] [place] [phone] Vale Contreras CNP NPH (normal pressure hydrocephalus) (CMS/HCC) (Primary Dx); Memory impairment; Impaired gait07/11/2025Telephone [facility] [address] [place] [phone] Lucie Colon MA from Last 3 Months Immunizations ImmunizationAdministration DatesNext DueInfluenza, High Dose Seasonal, Preservative Free08/27/2021Influenza, High-dose Seasonal, Quadrivalent, Preservative Free08/30/2020Influenza, Seasonal, Quadrivalent, Adjuvanted 08/10/2023,08/06/2022Influenza, injectable, vcklykschqnu55/31/2019Influenza, injectable, quadrivalent, preservative free11/25/2020,09/11/2019,08/31/2018, 09/07/2017Pneumococcal Conjugate PCV 1307/14/2021Pneumococcal Polysaccharide WTV952107/10/2015Unspecified Sars-Cov-2 Frsyaucaeqr24/23/2021,01/07/2021 Family History Medical HistoryRelationNameCommentsCoronary artery diseaseFatherRobert Gulau HypertensionFatherRobert GulauDiabetesMotherBertha GulauRelationNameStatus CommentsFatherRobert GulauMotherBertha Gulau Social History Tobacco UseTypesPacks/DayYears UsedDateSmoking Tobacco: NeverSmokeless Tobacco: Never Tobacco Cessation:Counseling Given: Not Answered Alcohol UseStandard Drinks/WeekCommentsNever0 (1 standard drink = 0.6 oz pure alcohol)Humiliation, Afraid, Rape, and Kick questionnaireAnswerDate Recorded Within the last year, have you been afraid of your partner or ex-partner?No 07/31/2025Emotionally AbusedNot on file07/31/2025Physically AbusedNot on file 07/31/2025Sexually AbusedNot on file07/31/2025PHQ-2AnswerDate RecordedPatient Health Questionnaire-2 Mccee466CommentsUnknownSex and Gender InformationValueDate RecordedSex Assigned at XsppiXfpvsi95/15/2025 11:40 AM EDT Legal EfpYirrwh25/29/2022 9:07 PM EDTGender LuinkbseRolwea83/15/2025 11:40 AM EDTSexual OrientationChoose not to edapywtv36/15/2025 11:40 AM EDT Last Filed Vital Signs Vital SignReadingTime TakenCommentsBlood Xyckwinh939/67007/31/2025 1:18 PM EDT Plmxq637307/31/2025 1:18 PM SDRXrzrircygro08.1 ??C (98.7 ??F)07/31/2025 1:18 PM EDTRespiratory Lwyt854607/31/2025 1:18 PM EDTOxygen Fsmyhsxswu82%05/22/2025 9:32 AM EDTInhaled Oxygen Concentration--Gufjin70.7 kg (189 lb)07/31/2025 1:18 PM EDT Xsqfzg291.1 cm (5' 5 )07/31/2025 1:18 PM EDTBody Mass Index31.45007/31/2025 1:18 PM EDT Plan of Treatment DateTypeDepartmentCare Team (Latest Contact Info)Fulqcdvryic64/22/2026 11:40 AM EDTAppointment [facility] [address] [place] [phone] 08/06/2026 1:00 PM EDTFollow-Up [facility] [address] [place] [address] Vale Contreras, LANGUAGE ASSISTANT [address] [place] [address] Health MaintenanceDue DateLast DoneCommentsDiabetes: Hemoglobin A1C1945 Medicare Annual Wellness (AWV)1945Diabetes: Retinopathy Screening 1956dult Yzbeycd5106/15/1968Zoster Vaccines (1 of 2)1996COVID-19 Vaccine ( season)5002/04/2021, 02/04/2021, 02/04/2021, Additional history existsInfluenza Vaccine (#1), 08/10/2023, 08/06/2022, Additional history existsDiabetes: Urine Protein Iusvhxzwm25/31/2026 07/15/2025, 02/03/2025Depression Gkctxagiv24Fall Risk Mwakfpjuj56Pneumococcal Vaccine: 50+ SwxgnTcvufifir30/14/2021, 05/16/2020, 07/10/2015, Additional history existsHIB VaccinesAged OutNo longer eligible based on patient's age to complete this topicHPV VaccinesAged OutNo longer eligible based on patient's age to complete this topicIPV VaccinesAged OutNo longer eligible based on patient's age to complete this topicMeningococcal B VaccineAged OutNo longer eligible based on patient's age to complete this topicMeningococcal VaccineAged OutNo longer eligible based on patient's age to complete this topicRotavirus VaccinesAged OutNo longer eligible based on patient's age to complete this topic Insurance Care Teams Team MemberRelationshipSpecialtyStart DateEnd Date Dami Martell MD Consulting PhysicianNeurology03/20/24
--- OUTSIDE RECORDS SUMMARY | 2025-09-10 03:19 | XMS_ITS | Patient Health Record ---
Author Organization [facility] [place] Address [address] [place] [address] Care Team Providers Care Head Kiln Operator Name Role Phone Stephanie Ley Primary Care Provider Unavaila opal Michael Turner Unavailable [phone] Brenda Mack Unavailable [phone] ArellanoRaul Unavailable [phone] Allergies No Known Allergies Results Component Value Reference Range Notes URINALYSIS Reviewed date:02/05/2025 08:59:22 AM Interpretation: Performing Lab:[address], [place]. [address] PH:[phone] Notes/Report: COLOR YELLOW YELLOW TURBIDITYHAZYCLEARSPECIFIC GRAVITY1.0151.003-1.035NITRITEPositiveNegative PH,URINE6.05.0-8.5LEUKOCYTE ESTERASESMALLNegativePROTEINNegativeNegative mg/dL GLUCOSE (URINE)250Negative mg/dLKETONES (URINE)NegativeNegative mg/dL UROBILINOGEN0.2<1.1 eu/dLBILIRUBIN (URINE)NegativeNegativeBLOOD/HGBTraceNegative W.B.CELLS>1000-5 /hpfR.B.THKLV56-7 /hpfSQUAMOUS XALALSQJZO58-9 /hpfWBC CLUMPSFEW NONEPERFORMED AT [address] [place], [place] [address]TEKRMCPTSIIS WITH RATIO Reviewed date:02/05/2025 08:58:58 AM Interpretation: Performing Lab:[facility] [address] [place] [address] AVE[address] [place] [address]. [address] PH:[phone] Notes/Report:MICROALBUMIN, URINE1.30.0-1.9 mg/dLURINE CREAT80.04ALB/CREAT RATIO 16.20.0-30.0 mg/g creatPERFORMED AT [address] [place] [address]FJDN ([facility]) Reviewed date:02/05/2025 09:02:37 AM Interpretation: Performing Lab:[facility]), [address] [place] [address], [address] [place] [address]. [address] PH:[phone] Notes/Report:PTH GTAYEQ77059-03 pg/mLPERFORMED AT [address] [address]HBD AND AUTO DIFF * Reviewed date:02/06/2025 12:23:38 PM Interpretation: Performing Lab:[facility]), [address] [place], [place] [address]E., [address] [place] [address]. [address] PH:[phone] Notes/Report:WBC COUNT5.64.0-11.0 X10E9/LRBC COUNT3.463.80-5.20 X10E12/L HEMOGLOBIN9.511.7-15.5 g/qQGQEQLRKTLW99.235-47 %TEW4926-446 fLMCH27.627-34 pg MCHC32.732-36 g/dLRDW16.411.5-15.0 %PLATELET OFNDE362865-276 X10E9/LMPV8.07-12 fL% OHVPJFGPRZX60.0% AFRZMYNVGMG34.9% RWRFAELGK46.2% EOSINOPHILS5.4% BASOPHILS 0.5ABSOLUTE NEUTROPHIL2.91.5-6.6 X10E9/LABSOLUTE LYMPHOCYTE1.81.0-3.5 X10E9/L ABSOLUTE MONOCYTE0.60-0.9 X10E9/LABSOLUTE EOSINOPHIL0.30.0-0.4 X10E9/LABSOLUTE BASOPHIL0.00.0-0.2 X10E9/LPERFORMED AT [address] [address]GQJWAUE D 25 HYD TOT Reviewed date:02/05/2025 09:02:26 AM Interpretation: Performing Lab:[facility]), [address] [place] [address]., [address] [address] PH:[phone] Notes/Report:VITAMIN D 25 HYD TOT48.730-100 ng/mL Vitamin D status 25 [place] Vitamin D Deficiency <20 ng/mL Insufficiency 20-29 ng/mL Sufficiency 30-100 ng/mL Toxicity >100 ng/mL NOTE: A pediatric reference range has not been established by the biologics specialist of this kit. The [place] [employer] recommends a Vitamin D level of = or >20ng/mL in infants and children. PERFORMED AT [address] [address] PHOSPHORUS Reviewed date:02/05/2025 09:02:49 AM Interpretation: Performing Lab:[facility] [address] [place] [address], [address] [address] PH:[phone] Notes/Report:PHOSPHORUS4.72.4-4.9 mg/dLPERFORMED AT [address] [address]PQTPAKFYR Reviewed date:02/05/2025 09:03:02 AM Interpretation: Performing Lab:[facility] [address] [place] [address], [address] [address] PH:[phone] Notes/Report:MAGNESIUM2.01.8-2.6 mg/dLPERFORMED AT [address] [address]TKD w/GFR Reviewed date:02/06/2025 12:24:13 PM Interpretation: Performing Lab:[facility] [address] [place] [address], [address] [address] PH:[phone] Notes/Report:WERJIS967996-872 mmol/LPOTASSIUM5.13.5-5.0 mmol/XUHDSYEHC5164-276 mmol/LCARBON MGNJJVZ0123-72 mmol/LANION FUA046-13 mmol/LBLOOD UREA PLDLNTIY426- 27 mg/dLCREATININE2.120.40-1.00 mg/dLMETHOD TRACEABLE TO IDMS SLXHMEXVIQZDECH421 65-99 mg/dLCALCIUM9.08.5-10.5 mg/dLeGFR (CKD-EPI) NON-RACE EPHXHKJBH07>59 ml/min/1.73sq.m Reported eGFR is based on the CKD-EPI 2020 equation that does not use a race coefficient. PERFORMED AT [facility] [address],[place] [address] Reason For Referral No Information Medications Medication SIG (Take, Route, Frequency, Duration) Notes Start Date End Date Status Norvasc 5 MG 1 tablet Orally Once a day; Dura tion: 90 days 08/30/2018Not-TakingVitamin D3 1000 UNIT1 tablet Orally Once a day01/19/2017 ActiveSertraline HCl 25 MG1 tablet Orally Once a day; Duration: 30 day(s)Active oxyBUTYnin Chloride 5 MG1 tablet Orally Once a dayActiveMetoprolol Succinate ER 50 MGTAKE 1 TABLET BY MOUTH EVERY DAY; Duration: 90ActiveLow-Dose Aspirin 81 MG as directed OrallyActiveLevemir 100 units/mL1 solution 40 units DAILY30 units QHS ActiveLetrozole 2.5 MG1 tablet Orally Once a dayActiveJanuvia 100 MG1 tablet Orally Once a dayActiveLisinopril 5 MG1 tablet Orally Once a day; Duration: 90 days4ActiveHumaLOG 100 UNIT/MLSubcutaneousSliding Scale ActiveGabapentin 100 MG1 capsule Orally CRSX7SuwqpmpmSFHNRmed Besylate 5 MG1 tablet Orally Once a day; Duration: 30 day(s)ActiveLasix 20 MG1 tablet Orally Once a day; Duration: 90 daysNeeds myefdj4109/19/2018Active Social History Tobacco Use: Social History Observation Description Date Details (start date - stop date) Never Smoker NA - NA Tobacco Use/Smoking Question Answer Notes Patient is a nonsmoker Problems Problem Type SNOMED Code ICD Code Onset Dates Problem Status W/U Status Risk Notes Problem Peripheral vascular disease (213282926) Peripheral vascular disease, unspecified (I73.9) ActiveconfirmedProblemHypomagnesemia (352048097)Hypomagnesemia (E83.42)Active confirmedProblemPersistent proteinuria (51830322264094)Persistent proteinuria, unspecified (R80.1)ActiveconfirmedProblemHypertension (27834300)Hypertension (I10)ActiveconfirmedProblemGastroesophageal reflux disease (612022929)GERD (gastroesophageal reflux disease) (K21.9)ActiveconfirmedProblemCoronary artery disease (04844386)CAD (coronary artery disease) (I25.10)ActiveconfirmedProblem Hypertension (04147129)HTN (hypertension) (I10)ActiveconfirmedProblemDM - Diabetes mellitus (06599568)DM (diabetes mellitus) (E11.9)ActiveconfirmedProblem Anemia (675931377)Anemia (D64.9)ActiveconfirmedProblemDepression (776476856) Depression (F32.9)ActiveconfirmedProblemChronic kidney disease stage 4 (243328925)CKD (chronic kidney disease) stage 4, GFR 15-29 ml/min (N18.4)Active confirmedProblemDiabetes mellitus type 2 (disorder) (98288940)DM2 (diabetes mellitus, type 2) (E11.9)ActiveconfirmedProblemChronic depression (715866002) Chronic depression (F32.9)ActiveconfirmedProblemLong-term current use of insulin (073446188)Long-term insulin use (Z79.4)ActiveconfirmedProblemHypoglycemic state in diabetes (174773356)Diabetes mellitus with hypoglycemia (E11.649)Active confirmedProblemhypercholesterolemia (disorder) (58382914)Hypercholesteremia (E78.00)ActiveconfirmedProblemDiabetes mellitus (90913154)Diabetes mellitus (E11.9)ActiveconfirmedProblemChronic kidney disease stage 3A (disorder) (345054053)Chronic kidney disease, stage 3a (N18.31)ActiveconfirmedProblem Chronic kidney disease stage 3B (disorder) (654536988)Chronic kidney disease, stage 3b (N18.32)ActiveconfirmedProblemAcute worsening of stage 3 chronic kidney disease (N18.30)Activeconfirmed Encounters Encounter Location Date Provider Diagnosis [facility] [address] [place] [address] 01/08/2025 Semdelmer Mack Chronic kidney disease, stage 3b N18.32 [facility] [address] [place] [address] 01/10/2025 Sembria Ligibel [facility] [place] [address] 02/06/2025Sembrlow MackCKD (chronic kidney disease) stage 4, GFR 15-29 ml/min N18.4[place] [address] [phone]id[facility] [place] [address]/26/2024John Ranker Assessments Encounter Date Diagnosis (ICD Code) Assessment Notes Treatment Notes Treatment Clinical Notes Section Notes 01/08/2025 Chronic kidney disease, stage 3b (ICD-10 - N18.32) 02/06/2025KD (chronic kidney disease) stage 4, GFR 15-29 ml/min (ICD-10 - N18.4) Plan Of Treatment Pending Test Test Name Order Date UA (URINALYSIS, COMPLETE) 01/19/2017 UA (URINALYSIS, COMPLETE) 07/20/2023 UA (URINALYSIS, COMPLETE) 01/18/2024 UA (URINALYSIS, COMPLETE) 07/18/2024 ALBUMIN, BLOOD 01/18/2024 ALBUMIN, BLOOD 07/20/2023 ALBUMIN, BLOOD 01/19/2017 VITAMIN B12 LEVEL (COBALAMIN) 03/23/2016 FERRITIN 03/23/2016 FOLIC ACID (FOLATE) 03/23/2016 MAGNESIUM 01/19/2017 MAGNESIUM 07/20/2023 MAGNESIUM 01/18/2024 MAGNESIUM 07/18/2024 IRON AND TIBC (WITH SAT) 03/23/2016 CBC NO DIFF 03/23/2016 CBC NO DIFF 01/19/2017 CBC NO DIFF 01/18/2024 CBC NO DIFF 07/20/2023 CBC WITH DIFF 07/18/2024 BMP (BASIC MET PANEL - W/GFR) 07/18/2024 BMP (BASIC MET PANEL - W/GFR) 01/18/2024 BMP (BASIC MET PANEL - W/GFR) 03/23/2016 MICROALBUMIN with ALB/CREAT RATIO, URINE (MALB)) 01/19/2017 MICROALBUMIN with ALB/CREAT RATIO, URINE (MALB)) 07/20/2023 MICROALBUMIN with ALB/CREAT RATIO, URINE (MALB)) 01/18/2024 MICROALBUMIN with ALB/CREAT RATIO, URINE (MALB)) 07/18/2024 PHOSPHORUS 07/18/2024 PHOSPHORUS 01/18/2024 PHOSPHORUS 07/20/2023 PHOSPHORUS 03/23/2016 PHOSPHORUS 01/19/2017 PTH INTACT (PARATHYROID HORMONE) 017 PTH INTACT (PARATHYROID HORMONE) 023 PTH INTACT (PARATHYROID HORMONE) 024 URIC ACID 01/18/2024 URIC ACID 03/23/2016 VITAMIN D, 25 LEVEL (TOTAL) 01/19/2017 VITAMIN D, 25 LEVEL (TOTAL) 07/20/2023 VITAMIN D, 25 LEVEL (TOTAL) 07/18/2024 BMP w/GFR 07/20/2023 BMP w/GFR 01/19/2017 BMP (BASIC MET PANEL) w/eGFR CKD-EPI BMP (BASIC MET PANEL) w/eGFR CKD-EPI Future Test Test Name Order Date BMP (BASIC MET PANEL - W/GFR) 07/18/2024 Insurance Providers Payer Name Payer Address Payer Phone Subscriber Number Group Number Insured Name Patient Relationship to Insured Coverage Start Date Coverage End Date [employer] DUAL ADV PRIMARY MEDICARE [address] [place] [phone] [id number] [facility] Luiz Cuca Self - patient is the insured 3 MEDICAID [place] [address] OFFICE OF [place], [place] [id number] [phone], RobertaSelf - patient is the insured 2013 Medical (General) History Medical History History ICD Code History of chronic kidney disease NKF cl assification History of diabetes mellitusHistory of hypertensionHistory of hyperlipidemia Surgical History Surgery Date(Month/Year) Pneumonia Pnumona/marsa valve worked on Shunt yimes 3shunt in right sideSteriod injection rhuurk5103/17/2019 Hospitalization History Reason Date(Month/Year) St vs -shunt 11/2022 Lumbar drain 01/23/20
--- OUTSIDE RECORDS SUMMARY | 2025-09-10 03:20 | XMS_ITS | Encounter Summary ---
Author Organization [facility] Address [id number] [address] [place] [address] Care Team Providers Care Math Professor Name Role Phone Jaylan Gray VENEER DRIER FEEDER-BOMB TECHNICIAN Primary Care Provider + Reason for Visit * ReasonCommentsMed Refill Encounter Details DateTypeDepartmentCare Team (Latest Contact Info)Iplcbxbdscq56/19/2025Refill [facility] Internal Medicine - Family Medicine [address] [place] [phone] Jaylan Gray, VENEER DRIER FEEDER-BOMB TECHNICIAN [address], [place] [id number] Social History Tobacco UseTypesPacks/DayYears UsedDateSmoking Tobacco: NeverSmokeless Tobacco: NeverAlcohol UseStandard Drinks/WeekCommentsNo0 (1 standard drink = 0.6 oz pure alcohol)[facility] UtilitiesAnswerDate RecordedIn the past 12 months has the UNI5, gas, oil, or water [employer] threatened to shut off services in your home?No 07/12/2025Social Connection and Isolation PanelAnswerDate RecordedIn a typical week, how many times do you talk on the phone with family, friends, or neighbors?Never10/28/2024How often do you get together with friends or relatives?More than three times a week10/28/2024How often do you attend religion or druze services?More than 4 times per year10/28/2024o you belong to any clubs or organizations such as religion groups, unions, fraternal or athletic roque ups, or school groups?Yes10/28/2024How often do you attend meetings of the clubs or organizations you belong to?More than 4 times per year10/28/2024re you , , , , never , or living with a partner? Never hnifafy8110/28/2024UDIT-CAnswerDate RecordedQ1: How often do you have a [...] housing, medical care, and heating?Somewhat hard10/28/2024HQ-2AnswerDate RecordedTotal Kopia281 [facility] of Occupational Health - Occupational Stress Questionnaire AnswerDate RecordedDo you feel stress - tense, restless, nervous, or anxious, or unable to sleep at night because yourmind is troubled all the time - these days? To some wfmkvr1610/28/2024Exercise Vital SignAnswerDate RecordedOn average, how many days [...] a household?No07/12/2025hildcareAnswer Date RecordedDo problems getting child care specialist make it difficult for you to work [...] InformationValueDate RecordedSex Assigned at BirthNot on fileLegal NoyFeaded67/06/2015 11:55 AM EDT Gender AcevygzbLnfzmy83/07/2020 8:20 PM EDTSexual YpqaeogjoifXlmqdcnm14/21/2022 8:20 AM ESTdocumented as of this encounter Plan of Treatment DateTypeDepartmentCare Team (Latest Contact Info)Lrigdvprxfe32/31/2025 10:15 AM EDTOffice Visit Stephany Carnes [facility] - Medical Oncology [address] [place] [address] Casimiro Leary MD [address] [facility] [address] [place] [address] 09/17/2025 2:15 PM ESTOffice Visit [facility] [address] [facility] [address] [place] [phone] Tawny Engel MD [address] [place] [address] Irina Brunner MD [address] [place] [address] 10/03/2025 1:45 PM ESTOffice Visit [facility]ics/Trauma and Adult Reconstruction [address] [place] [address] Ra Marinelli MD [address] [place] [address] documented as of this encounter Goals GoalPatient Goal TypeAssociated ProblemsRecent ProgressPatient-Stated?Author SNF Discharge Bethany Austin RN Note: Patient would only like to discharge to [facility], if not patient would like to return home. documented as of this encounter Visit Diagnoses Not on filedocumented in this encounter Additional Health Concerns AssessmentNoted TimePHQ-9 Depression Total Score: 2:24 PM EDTA Body Mass Index follow-up plan has been documented for the uhmkhuh6704/04/2025 3:37 PM EDTdocumented as of this encounter Care Teams Team MemberRelationshipSpecialtyStart DateEnd Date Jaylan Gray, VENEER DRIER FEEDER[employer]BOMB TECHNICIAN [address] [place] [address] PCP - GeneralNurse Practitioner05/30/25documented as of this encounter
--- OUTSIDE RECORDS SUMMARY | 2025-09-10 03:20 | XMS_ITS | Clinical Summary ---
Author Organization [facility] Address [address] [place] [address] Care Team Providers Care Complaint Specialist Name Role Phone Unallocated, Noms Provider Primary Care Provi michele Allergies No known active allergies Medications MedicationSigDispense QuantityRefillsLast FilledStart DateEnd DateStatus acetaminophen (Tylenol) 500 MG tablet Take 1,000 mg by mouth every 6 (six) hours if neededActive amLODIPine (Norvasc) 5 MG tablet Take 5 mg by mouth DailyActive aspirin 81 MG chewable tablet Chew 81 mg DailyActive atorvastatin (Lipitor) 10 MG tablet Take 10 mg by mouth at obxjubt43/11/2025Active cefuroxime (Ceftin) 250 MG tablet Take 250 mg by mouth DailyActive ferrous sulfate 325 (65 Fe) MG tablet Take 325 mg by mouth 1 (one) time each day at the same timeActive furosemide (Lasix) 20 MG tablet Take 20 mg by mouth in the morning.5Active gabapentin (Neurontin) 300 MG capsule Take 300 mg by mouth in the morning and 300 mg in the evening.4Active glucose blood (OneTouch Ultra Test) test strip OneTouch Ultra Test strips 1 STRIP BY OTHER ROUTE 4 (FOUR) TIMES A DAY BEFORE MEALS AND NIGHTLY.Active hydroCHLOROthiazide (HYDRODiuril) 25 MG tablet Take 1 tablet by mouth DailyActive insulin aspart FlexPen (NovoLOG) 100 UNIT/ML pen Inject under the skin 3 (three) times a day with meals5Active insulin detemir (Levemir) 100 UNIT/ML pen Inject 15 Units under the skin at nqyivdw58/10/2024Active insulin glargine (Lantus SoloStar) 100 UNIT/ML pen Inject under the skin5Active insulin lispro (HumaLOG) 100 UNIT/ML injection Inject under the skinActive letrozole (Femara) 2.5 MG chemo tablet Take 2.5 mg by mouth Daily.ctive Lidocaine 4 % patch Place 1 patch on the skin 1 (one) time each day at the same time5Active lisinopril 5 MG tablet Take 5 mg by mouth DailyActive metoprolol tartrate (Lopressor) 50 MG tablet Take 1 tablet by mouth in the morning and 1 tablet before bedtime.Active mirtazapine (Remeron) 7.5 MG tablet Take 7.5 mg by mouth at vpxutca37/10/2025Active nystatin (Mycostatin) 332058 UNIT/GM powder Apply 1 Application topically in the morning and 1 Application at noon and 1 Application in the evening and 1 Application before bedtime.09/06/2024ctive oxybutynin (Ditropan) 5 MG tablet Take 1 tablet by mouth DailyActive pantoprazole (ProtoNix) 40 MG packet Take 40 mg by mouth in the morning. Take before meals.Active sertraline (Zoloft) 100 MG tablet Take 100 mg by mouth in the morning.5Active SITagliptin (Januvia) 25 MG tablet Take 25 mg by mouth DailyActive traZODone (Desyrel) 100 MG tablet Take 1 tablet by mouth at jgyduei2203/02/2024ctive Active Problems No known active problems Encounters DateTypeDepartmentCare XfpgSrewxyluoso98/26/2025 2:10 PM EDTAncillary Procedure [facility] [phone] 07/10/2025 1:30 PM EDTOffice Visit [facility] [place] [phone] Alexis Goldberg PA Acute right hip pain (Primary Dx); Closed avulsion fracture of right hip with routine healing, subsequent encounter; Intertrochanteric fracture of right hip, closed, initial encounter ([facility] 07/10/2025amboo flowsheet [facility] [address] [address] Alexis Goldberg PA 07/10/20253802Qwbtlc40/07/2025Telephone [facility] [address] [place] [address] Alexis Goldberg PA wants to know if she can do outpatient wants to be ftewkwbu70/04/2025Telephone [facility] [address] [place] [address] Alexis Goldberg PA OTC Tylenol not xsckadn4606/14/2025bstract [facility] [address] [place] [phone] Unallocated, Andrea Javed MD from Last 3 Months Social History Tobacco UseTypesPacks/DayYears UsedDateSmoking Tobacco: NeverSmokeless Tobacco: Never Tobacco Cessation:Counseling Given: Not Answered Alcohol UseStandard Drinks/WeekCommentsNot Currently0 (1 standard drink = 0.6 oz pure alcohol)CommentsUnknownSex and Gender InformationValueDate Recorded Sex Assigned at BirthNot on fileLegal LnnTigxaw2023 7:37 PM EDTGender IdentityNot on fileSexual OrientationNot on file Last Filed Vital Signs Vital SignReadingTime TakenCommentsBlood Erkedkrj782/6006 3:32 PM EDT Oxtdt594805/03/2023 3:32 PM EDTTemperature--Respiratory Mwfo538105/03/2023 3:32 PM EDTOxygen Dorghokbuj32%05/03/2023 3:32 PM EDTInhaled Oxygen Concentration-- Ttmwty62.7 kg (189 lb)06/06/2025 1:25 PM BOOUexfyx820.1 cm (5' 5 )06/06/2025 1:25 PM EDTBody Mass Index31.4507 1:25 PM EDT Plan of Treatment Health MaintenanceDue DateLast DoneCommentsDiabetes: Retinopathy Screening 1956Medicare Annual Wellness (AWV), 08/06/2022, 05/28/2021, Additional history existsInfluenza Vaccine (#1), 08/10/2023, 08/06/2022, Additional history existsDiabetes: Hemoglobin A1C 508, 12/04/2024, 04/13/2024, Additional history existsDiabetes: Urine Protein Opuzdnflt51/31/435925, 07/15/2025, 02/03/2025, Additional history existsPneumococcal Vaccine: 65+ QyarhBmogwtqpw73/14/2021, 05/16/2020, 07/10/2015, Additional history exists Procedures Procedure NamePriorityDate/TimeAssociated DiagnosisCommentsXR HIP 2 OR 3 VW UXPDPLtskcve89/26/2025 2:09 PM EDT Closed avulsion fracture of right hip with routine healing, subsequent encounter from Last 3 Months Results * XR hip right 2 or 3 views (07/10/2025 2:09 PM EDT)Anatomical RegionLaterality ModalityLower Extremities, HipRightRadiographic ImagingSpecimen (Source) Anatomical Location / LateralityCollection Method / VolumeCollection Time Received Time Narrative 07/10/2025 10:02 PM EDT Imaging Result: AP Pelvis ??and ??right hip: Osteopenia noted lesser trochanteric avulsion fracture appears well aligned. Soft tissue vascular calcifications are prominent , new appearing lucency concerning for intertrochanteric hip fracture. More prominent cystic or lytic changes femoral neck and ??weight bearing surface femoral head. No effusion. Remote sclerotic changes from pubic ramus fracture bilaterally with mild degenerative changes of hip Impression: stable appearing right hip lesser trochanteric avulsion Fracture with new appearing intertrochanteric hip fracture and cystic changes adjacent concerning for pathologic fracture. Authorizing ProviderResult TypeResult StatusMattkathy Goldberg PAIMG XR PROCEDURES Final Result from Last 3 Months Insurance Care Teams Team MemberRelationshipSpecialtyStart DateEnd Date Unallocated, Noms Provider, [address] [place], [place] [phone] PCP - GeneralFamily Medicine06/06/25
--- OUTSIDE RECORDS SUMMARY | 2025-09-10 03:20 | XMS_ITS | Clinical Summary ---
Author Organization [facility] tem Address [id number] [place] [address] Care Team Providers Care Geophysical Prospector Name Role Phone Jaylan Gray APRN-ED EDUCATIONAL AIDE Primary Care Provider + Allergies No known active allergies Medications MedicationSigDispense QuantityRefillsLast FilledStart DateEnd DateStatus traZODone (DESYREL) 100 mg tablet Indications:Insomnia, unspecified typeTAKE 1 TABLET BY MOUTH EVERY DAY AT NIGHT 90 tablet 5Active letrozole (FEMARA) 2.5 mg chemo tablet Take 1 tablet by mouth daily 90 tablet 506Active cyanocobalamin 1000 MCG tablet Take 1 tablet (1,000 mcg total) by mouth in the morning.5Active insulin lispro (HumaLOG) 100 unit/mL insulin pen Inject 2-10 Units under the skin 4 (four) times a day with meals and nightly. 151-200 mg/dL, give 2units. 201-250 mg/dL, give 4 units. 251-300 mg/dL, give 6 units. 301-350 mg/dL, give 8 units 351-400 mg/dL, give 10 units 15 mL 1205Active furosemide (LASIX) 20 mg tablet Take 1 tablet (20 mg total) by mouth daily.5Active lidocaine (SALONPAS) 4 % Place 1 patch on the skin daily. 30 patch 5Active busPIRone (BUSPAR) 5 mg tablet Take 1 tablet (5 mg total) by mouth 3 (three) times a day.07/05/2025tive magnesium oxide (MAGOX) 400 mg tablet Take 1 tablet (400 mg total) by mouth in the morning.07/05/2025tive insulin glargine (LANTUS, SEMGLEE) 100 unit/mL (3 mL) insulin pen Inject 10 Units under the skin nightly. 15 mL 07/05/2025tive loratadine (CLARITIN) 10 mg tablet Take 1 tablet (10 mg total) by mouth before bedtime.Active ondansetron (ZOFRAN) 4 mg tablet Take 1 tablet (4 mg total) by mouth every 6 (six) hours as needed for nausea or vomiting.Active acetaminophen (TYLENOL EXTRA STRENGTH) 500 mg tablet Take 2 tablets (1,000 mg total) by mouth every 8 (eight) hours.07/18/2025tive polyethylene glycol (GLYCOLAX) 17 gram packet Take 17 g by mouth in the morning and at bedtime.07/18/2025tive cholecalciferol, vitamin D3, 2,000 units tablet Take 1 tablet (2,000 Units total) by mouth in the morning.07/19/2025tive ergocalciferol (DRISDOL) 1,250 mcg (50,000 unit) capsule Take 1 capsule (50,000 Units total) by mouth once a week.07/20/2025tive pantoprazole (PROTONIX) 40 mg EC tablet Take 1 tablet (40 mg total) by mouth every morning before breakfast.07/19/2025 Active docusate sodium (COLACE) 100 mg capsule Take 1 capsule (100 mg total) by mouth in the morning and 1 capsule (100 mg total) before bedtime.07/18/2025tive ferrous sulfate 325 (65 FE) MG tablet Take 1 tablet (325 mg total) by mouth daily with breakfast.07/18/2025tive gabapentin (NEURONTIN) 300 mg capsule Indications: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)Take 1 capsule (300 mg total) by mouth in the morning. 30 capsule 5Active Additional Information Patient not taking.Reported on 08/22/2025 mirtazapine (REMERON) 7.5 mg tablet Indications:Insomnia, unspecified typeTake 1 tablet (7.5 mg total) by mouth nightly. 90 tablet 109/16/2025Active mineral oil (FLEET) enema Insert into the rectum once.Active glucagon (GLUCAGEN DIAGNOSTIC KIT INJ) Inject as directed.Active calcium citrate-vitamin D3 500 mg-12.5 mcg /5 gram powder in packet Take by mouth.Active sertraline (ZOLOFT) 100 mg tablet TAKE 1 TABLET(100 MG) BY MOUTH IN THE MORNING 90 tablet 09/04/2025tive sertraline (ZOLOFT) 100 mg tablet Take 1 tablet (100 mg total) by mouth in the morning. 30 tablet Discontinued oxyCODONE (OXY-IR) 5 mg capsule Indications:Lesion of left femurTake 1 capsule (5 mg total) by mouth every 6 (six) hours as needed for pain for up to 7 days. Max Daily Amount: 20 mg 28 capsule Expired enoxaparin (LOVENOX) 40 mg/0.4 mL syringe Inject 0.4 mL (40 mg total) under the skin in the morning for 30 doses. 15 mL Expired senna (SENOKOT) 8.6 mg tablet Take 2 tablets (17.2 mg total) by mouth nightly as needed for constipation for up to 30 days.Expired Active Problems ProblemNoted DateDiagnosed DateClosed nondisplaced fracture of lesser trochanter of right femur with delayed vywkges9608/26/2025Hypertension associated with stage 4 chronic kidney disease due to type 2 diabetes dukbtkkn59/12/2025Pathological fracture, hip, unspecified, subsequent encounter for fracture with routine zwtkmjy5908/12/2025Lesion of left femur08/01/2025Pelvic tdnnbsgy13/29/2025 Pathological fracture of hip07/12/2025Pain of right hip07/10/2025dnexal mass 07/03/2025 Overview (07/03/2025): Left Generalized kucrwlyc22/18/2025Intractable nausea and /18/2025UTI (urinary tract infection)06/11/2025losed fracture of right hip05/14/2025 Pathological fracture of right femur due to neoplastic disease with routine kprarzo3005/14/2025ute respiratory failure with xotbxca6305/13/2025Hypoxia 03/16/20257800Tdgdxn49/02/2025trial fibrillation with RVR01/22/2025Elevated trgaawbi12/26/2024cute eobgbznw89/13/2024Type 2 diabetes mellitus with hypoglycemia without coma08/23/2024OVID-19 virus /28/2024Weakness 06/14/2024Lactic nouhovqp94/31/2024Iron deficiency prgwzj7906/14/2024 Kgiiraqrypwmco07/31/2024Staphylococcus aureus bacteremia with ppsezp9406/13/2024 Generalized muscle teaaijyi51/29/2024Limitation of activities due to disability 04/12/2024Need for assistance with personal care04/12/2024isability affecting daily flalvh0204/12/2024ifficulty in walking, not elsewhere ehrbpfafqy13/28/2024 Insomnia, /28/2024MRSA (methicillin resistant Staphylococcus aureus)04/11/2024Obesity, gnsuawrzclu36/28/2024Unspecified osteoarthritis, unspecified site04/11/2024Unspecified Escherichia coli (E. coli) as the cause of diseases classified vxekvzuhi79/28/2024Metastasis to bone03/09/2024S/p TAVR (transcatheter aortic valve replacement), pgddszzbitrba23/12/2023Nonrheumatic aortic valve /03/2023Hypertensive heart and chronic kidney disease with heart failure and stage 1 through stage 4 chronic kidney disease, or unspecified chronic kidney bultapy2804/02/2023epression, famtxlkizxf89/16/2023 Primary generalized (osteo)emzlewsia24/16/2023Type 2 diabetes mellitus with diabetic chronic kidney bftjgyb0303/30/2023losed nondisplaced fracture of left pubis with routine sinvzzd9503/28/2023cute kidney injury superimposed on CKD 03/28/2023Malignant neoplasm of upper-outer quadrant of right breast in female, estrogen receptor fwdsylpq31/04/2023Tremors of nervous vcrcat8201/13/2023 03/25/2023hronic diastolic congestive heart esiahdt2810/05/2022History of non-ST elevation myocardial infarction (NSTEMI)10/05/2022History of soyfyynxf51/21/2022 Elevated d-dimer10/05/2022tage 3b chronic kidney bjpgzbp0010/05/2022pinal stenosis of lumbar region with neurogenic /31/2022 Overview (07/15/2022): Added automatically from request for surgery [id number] Acute cystitis without mhcyuukbj54/12/2022Coronary artery disease involving venetie coronary artery of venetie heart without angina atnljcqn95/30/2021 Essential (primary) pecarowevbcv20/30/2021Other abnormalities of gait and vtcvcety49/28/2021hronic obstructive pulmonary wojzuel8303/20/2021Type 2 diabetes mellitus without kjtqnusjubzr66/06/2021Edema of lower voubqiqvn63/26/2020 Constipation, gpxxphlinon43/26/2020Unspecified asthma, lczknmzvrgqbu26/26/2020 Murmur, npbipja6403/26/2020Left bundle branch block03/26/2020Mixed diabetic hyperlipidemia associated with type 2 diabetes nrphysin72/27/2020GI bleed 10/17/2019Obstructive sleep apnea tampnfcz49/07/2019Cerebral ventriculomegaly 09/21/2019Wears /07/2019Urinary tract infectious gfitcun3609/21/2019 Normal pressure gmerfimizretq36/22/2019Moderate episode of recurrent major depressive ctavevyv24/02/2019Lumbar zunrzhmvstw71/31/2019Primary osteoarthritis of both knees10/26/2018Disc displacement, eyzanu0106/27/2018 Overview (06/27/2018): Added automatically from request for surgery [id number] Lumbar back pain with radiculopathy affecting left lower cidotrjfn47/16/2018 Overview (05/30/2018): Exacerbation, Chronic Anemia, chronic ectednn0109/07/2017GERD without zqffujpdccl26/11/2017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 vkiidmlv88/11/2017PVD (peripheral vascular disease) 05/25/2017 Resolved Problems ProblemNoted DateDiagnosed DateResolved DateAltered mental status, unspecified altered mental status type/5Acute respiratory failure with hypoxia and typhiwmgtae12Pneumonia, unspecified organism /ortic gisfvtgf52Severe aortic valve ofnereef97/NSTEMI (non-ST elevated myocardial infarction)/Dizzinessssential wfqqzpzgzmvk28Essential vclothbbltyl81 Rkuomovft36Urinary incontinence with continuous leakage Current moderate episode of major depressive disorder Weakness of both lower ybqthaotdfa47 Encounters DateTypeDepartmentCare VppaXudnudbepbm76/22/2025ontinuing Care [facility] [address] [place] [address] Sacha Rosales, DO 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 (CMS-HCC) (Primary Dx); Hypertensive heart and chronic kidney disease with heart failure and stage 1 through stage 4 chronic kidney disease, or unspecified chronic kidney disease (CMS-HCC); Nausea and vomiting, unspecified vomiting type09/02/2025Refill [facility] [address] [place] [address] Jaylan Gray, BATTERY STACKER-ED EDUCATIONAL AIDE 08/31/2025 10:31 AM EDT - 08/31/2025 11:59 PM EDTHospital Encounter [facility] [address] [place] [address] Malignant neoplasm of upper-outer quadrant of right breast in female, estrogen receptor positive (CMS-HCC); Malignant neoplasm of upper-outer quadrant of right female breast, unspecified estrogen receptor status (CMS-HCC); Metastasis to bone (CMS-HCC) Discharge Disposition: Home08/31/20256965Xzasub97/08/2025 9:45 AM EDTOffice Visit [facility] [address] [place] [address] Ra Marinelli MD Lesion of left femur (Primary Dx); Pathological fracture of right femur due to neoplastic disease with routine bqkmsme6308/22/2025 9:38 AM EDT - 08/22/2025 11:59 PM EDTHospital Encounter [facility] [address] [place] [phone] 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, subsequent encounter Discharge Disposition: Home08/22/20256780Odhfga25/30/2025ontinuing Care [facility] [address] [place] [address] Sacha Rosales, Closed nondisplaced fracture of lesser trochanter of right femur with delayed healing (Primary Dx); Confusion; Other abnormalities of gait and mobility; Chronic obstructive pulmonary disease, unspecified COPD type (CMS-HCC); Hypertensive heart and chronic kidney disease with heart failure and stage 1 through stage 4 chronic kidney disease, or unspecified chronic kidney disease (CMS-HCC); Anemia, unspecified type08/14/2025Orders Only [facility] [address] [place] [address] Kathie Ybarra RN 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, subsequent encounter (Primary Dx)08/13/2025Telephone [facility] [address] [place] [phone] Krishna Escoto CMA 5Continuing Care [facility] [address] [place] [address] Sacha Rosales, Chronic obstructive pulmonary disease, unspecified COPD type (CMS-HCC) (Primary Dx); Hypertensive heart and chronic kidney disease with heart failure and stage 1 through stage 4 chronic kidney disease, or unspecified chronic kidney disease ([facility] Chronic diastolic congestive heart failure ([facility]); Pathological fracture, hip, unspecified, subsequent encounter for fracture with routine ryitaho1008/08/2025ontinuing Care [facility] Medicine [address] [place] [address] Sacha Rosales, DO Closed nondisplaced fracture of lesser trochanter of right femur with delayed healing (Primary Dx); Stage 3b chronic kidney disease ([facility] Type 2 diabetes mellitus with stage 4 chronic kidney disease, without long-term current use of insulin ([facility]); Chronic diastolic congestive heart failure ([facility])08/06/2025 7:33 AM EDT Anesthesia Event [address] [address] Azeem Lnua MD Roberts, Alyssa, STEPH 08/06/2025 7:30 AM EDT - 08/06/2025 9:45 [address] [place] [address] Ra Marinelli MD INSERTION INTRAMEDULLARY NAIL FEMUR [[id number] (CPT??)]08/06/2025 5:44 AM EDT - 08/06/2025 3:54 PM EDTHospital Encounter [address] [place] [address] Ra Marinelli MD Lesion of left femur Discharge Disposition: [facility] Facility-Medicare Cert08/06/2025Travel 5Continuing Care [facility] - Family Medicine [address] [place] [place] [address] Sacha Rosales DO Lesion of left femur (Primary Dx); Coronary artery disease involving venetie coronary artery of venetie heart without angina pectoris; Chronic diastolic congestive heart failure ([facility]); S/p TAVR (transcatheter aortic valve replacement), bioprosthetic; Hypertensive heart and chronic kidney disease with heart failure and stage 1 through stage 4 chronic kidney disease, or unspecified chronic kidney disease ([facility])08/02/2025Telephone [facility] [address] [place] [address] Kathie Ybarra RN 08/01/2025 1:15 PM EDTOffice Visit [facility] [address] [place] [address] Ra Marinelli MD 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, subsequent encounter (Primary Dx); Lesion of left femur08/01/20255727Vbmyul19/17/2025Refill [facility] [address] [place] [address] Destiny Alexis CMA 07/31/2025Documentation [facility] - Medical Oncology [address] [place] [phone] Rosario Strong RN 07/31/2025Documentation [facility] - Medical Oncology [address] [place] [phone] Rosario Strong RN 07/30/2025Refill [facility] [address] [place] [address] Destiny Alexis CMA 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 mellitus ([facility]); Insomnia, unspecified type07/27/2025Telephone [facility] [address] [place] [address] Cinda Browning RN 07/26/2025Orders Only [facility] - Medical Oncology [address] [place] [address] Casimiro Leary MD 07/25/2025Telephone [facility] Gynecology Oncology, A Department of [address] [address] Viridiana Mathews MD Dhocffxwjhr71/09/2025[facility] [address] [place] [address] Sacha Rosales, Chronic diastolic [facility]ive [facility] ([facility]); Pathological fracture of right hip with routine healing, unspecified pathological cause, subsequentencounter; Closed fracture of right hip, sequela; Closed nondisplaced fracture of lesser trochanter of right femur with delayed healing; Other abnormalities of gait and mobility; Hypertensive heart and chronic kidney disease with heart failure and stage 1 through stage 4 chronic kidney disease, or unspecified chronic kidney disease ([facility])07/24/2025Refill [facility] - Family Medicine [address] [place] [address] Destiny Alexis CMA 5[facility] [address] [place] [address] Sacha Rosales, Pathological fracture of right hip with routine healing, unspecified pathological cause, subsequentencounter (Primary Dx); Closed nondisplaced fracture of pelvis with routine healing, unspecified part of pelvis, subsequentencounter; Mixed diabetic hyperlipidemia associated with type 2 diabetes mellitus ([facility]); Hypertensive heart and chronic kidney disease with heart failure and stage 1 through stage 4 chronic kidney disease, or unspecified chronic kidney disease ([facility])07/13/2025 7:34 AM EDTAnesthesia Event [facility] [address] [place] [address]. [place] [address] Tommy Foreman MD Peeps, Noah, [facility] 07/13/2025 7:30 AM EDT - 07/13/2025 9:44 AM EDTSurgery [facility] [address] [place] [address]. [place] [address] Ra Marinelli MD INSERTION INTRAMEDULLARY NAIL ANTEGRADE FEMUR [[id number] (CPT??)]07/13/2025Telephone [facility] Cardiology [address] [place] [address] Brii West 07/13/20251266Zvoppk00/28/2025 1:26 PM EDT - 07/18/2025 12:20 PM EDTHospital Encounter [facility] - GEN [address] Acute [address] [place] [phone] Miley Peña MD Pillai, Kanchan M, MD Pathological fracture of right hip due to other disease, initial encounter ([facility]) (Primary Dx); Anemia, chronic disease; Stage 3b chronic kidney disease ([facility]); 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, subsequent encounter Discharge Disposition: [facility] Facility-Medicare Cert07/12/2025Results Follow-Up [facility] [address] [place] [address] Casimiro Leary MD MR pelvis with and without hdrnfdyz68/26/2025 3:20 PM EDT - 07/12/2025 12:30 PM EDTHospital Encounter [facility] [address] [place] [address] Josesito Tyson MD PakoEleni louie MD Pain of right hip (Primary Dx) Discharge Disposition: [facility] Jaafewbm11/26/2025ontinuing Care [facility] - Family Medicine [address] [place] [address] Sacha Rosales, Hypertensive heart and chronic kidney disease with heart failure and stage 1 through stage 4 chronic kidney disease, or unspecified chronic kidney disease ([facility]) (Primary Dx); Chronic obstructive pulmonary disease, unspecified COPD type ([facility]); Lumbar back pain with radiculopathy affecting left lower extremity; Spinal stenosis of lumbar region with neurogenic claudication; Closed fracture of right hip, sequela; Rhinitis, unspecified type07/10/20254186Zwyvjo46/24/2025Results Follow-Up [facility] - Emergency [address] [place] [address] Shanta Tyson RN Blood culture, Blood yffeuud5207/06/2025ontinuing Care [facility] - Family Medicine [address] [place] [address] Sacha Rosales DO Chronic diastolic congestive heart failure ([facility]) (Primary Dx); Hypertensive heart and chronic kidney disease with heart failure and stage 1 through stage 4 chronic kidney disease, or unspecified chronic kidney disease ([facility]); Intractable nausea and vomiting; Urinary tract infection without hematuria, site rymzpojsloo37/21/2025Telephone [facility] Gynecology Oncology, A Department of [address] [address] Viridiana Mathews MD Ivpecxqpfhp27/18/2025 5:45 PM EDT - 07/05/2025 6:36 PM EDTHospital Encounter [facility] - Med Surg [address] [place] [phone] Ben Thibodeaux MD Muhammad, Ruqiyya T, MD Adnexal mass (Primary Dx); Intractable nausea and vomiting; Type 2 diabetes mellitus without complication, without long-term current use of insulin ([facility] Generalized weakness; Hypomagnesemia; Iron deficiency anemia due to chronic blood loss Discharge Disposition: [facility] Facility-Medicare Cert07/02/2025 10:06 AM EDT - 07/02/2025 4:[address] [facility] [address] [place] [phone] Ben Thibodeaux MD Generalized weakness (Primary Dx); Dehydration; Adnexal mass Discharge Disposition: [facility]07/02/20251898Zfuvqf21/14/2025Orders Only [facility] Internal Medicine - Family Medicine [address] [place] [address] Ref Prov, Not In System 06/25/2025Telephone [facility] Internal [facility] - Family Medicine [address] [place] [address] Mignon Dias CMA 2025Telephone [facility] - Family Medicine [address] [place] [address] Radha Pritchard RN Transition Of Care06/11/2025 12:40 AM EDT - 06/13/2025 3:05 PM EDTHospital Encounter [facility] - Acute Care [address] [place] [address] Prem Day MD Asif, Muhamid M, MD UTI (urinary tract infection) (Primary Dx) Discharge Disposition: Home Fbcyvp6806/10/2025 10:08 AM EDT - 06/10/2025 2:[address] [facility] [address] [place] [address] Ramesh Pryor DO Acute cystitis with hematuria (Primary Dx) Discharge Disposition: Home06/10/2025Travelfrom Last 3 Months Immunizations ImmunizationAdministration DatesNext DueCOVID-19, mRNA, LNP-S, PF, 30mcg/0.3mL Dose02/04/2021,01/07/2021Influenza High Dose Preservative Free IM08/27/2021 Influenza Vaccine, Quadrivalent, Jdomcbvsbz13/26/2023,08/06/2022Influenza, High- dose, Lzoxvtbmruvo21/16/2020Influenza, Injectable, Wysozdblsdqs45/31/2019 Influenza, Injectable, quadrivalent (PF)11/25/2020,09/11/2019,08/31/2018, 09/07/2017Influenza, Trivalent, Limsvthfrb99/14/2024Pneumococcal Conjugate 13-Wldafv911Pneumococcal Hqpnbxztuhrvoj76/02/2020,07/10/2015,06/29/2015 Tuberculin Skin Test; Unspecified Snanycqjedm34/10/2024,04/12/2024,04/13/2023, 04/06/2023,05/10/2020 Family History Medical HistoryRelationNameCommentsNo Known ProblemsBrotherCoronary artery diseaseFatherHypertensionFatherDiabetesMotherBreast cancerNeg HxRelationName StatusCommentsBrotherAliveDaughterAliveFatherDeceased (Age 58)MotherDeceased (Age 94) Social History Tobacco UseTypesPacks/DayYears UsedDateSmoking Tobacco: NeverSmokeless Tobacco: Never Tobacco Cessation:Counseling Given: Not Answered Alcohol UseStandard Drinks/WeekCommentsNo0 (1 standard drink = 0.6 oz pure alcohol)[facility] UtilitiesAnswerDate RecordedIn the past 12 months has the [employer], gas, oil, or water eyeOS threatened to shut off services in your home?No 07/12/2025Social Connection and Isolation PanelAnswerDate RecordedIn a typical week, how many times do you talk on the phone with family, friends, or neighbors?Never10/28/2024How often do you get together with friends or relatives?More than three times a week10/28/2024How often do you attend jewish or mandaen services?More than 4 times per year10/28/2024o you belong to any clubs or organizations such as jewish groups, unions, fraternal or athletic roque ups, or school groups?Yes10/28/2024How often do you attend meetings of the clubs or organizations you belong to?More than 4 times per year10/28/2024re you , , , , never , or living with a partner? Never tiapyrd8810/28/2024UDIT-CAnswerDate RecordedQ1: How often do you have a [...] housing, medical care, and heating?Somewhat hard10/28/2024HQ-2AnswerDate RecordedTotal Xifqs802 [employer] [place] [employer] - Occupational Stress Questionnaire AnswerDate RecordedDo you feel stress - tense, restless, nervous, or anxious, or unable to sleep at night because yourmind is troubled all the time - these days? 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 for you to work [...] InformationValueDate RecordedSex Assigned at BirthNot on fileLegal OocMyedjx04/06/2015 11:55 AM EDT Gender RkstxctsCpqflz77/07/2020 8:20 PM EDTSexual AefecgjvpcaEwzsyjps50/ 8:20 AM EST Last Filed Vital Signs Vital SignReadingTime TakenCommentsBlood Qotduvto541/7609/05/2025 3:40 PM EDT Qayqy248909/05/2025 3:40 PM VVKLbsdhgypymr47.7 ??C (98.1 ??F)09/05/2025 3:40 PM EDTRespiratory Qrnw0103 3:40 PM EDTOxygen Gsqdgffzxr08%09/05/2025 3:40 PM EDTInhaled Oxygen Concentration--Dclnxh35.2 kg (148 lb 1.6 oz)09/05/2025 3:40 PM ZCCIoegml752.1 cm (5' 5 )08/22/2025 10:07 AM EDTBody Mass Index24.65 08/22/2025 10:07 AM EDT Plan of Treatment DateTypeDepartmentCare Team (Latest Contact Info)Tgvpskheqve88/31/2025 10:15 AM EDTOffice Visit Stephany Carnes [facility] - Medical Oncology [address] [place] [phone] Casimiro Leary MD [address] [facility] [address] [place] [address] 09/17/2025 2:15 PM ESTOffice Visit [facility] [address] [phone] Tawny Engel MD [address] [place] [address] Irina Brunner MD [address] [place] [address] 10/03/2025 1:45 PM ESTOffice Visit [facility] [address] [place] [phone] Ra Marinelli MD [address] [place] [address] Health MaintenanceDue DateLast DoneCommentsDTaP,Tdap and Td Vaccines (1 - Tdap) 1964Zoster (Shingles) Vaccine (1 of 2)1965COVID-19 Vaccine (3 - Pfizer risk series)/, 01/07/2021Medicare Annual Wellness Visit/, 08/06/2022, 05/28/2021, Additional history exists Influenza Qomujkt71/, 08/10/2023, 08/06/2022, Additional history existsFall Risk Hdgtsijxx87Depression Screening Tobacco Shftpkicu36 Goals GoalPatient Goal TypeAssociated ProblemsRecent ProgressPatient-Stated?Author SNF Discharge Bethany Austin RN Note: Patient would only like to discharge to [facility], if not patient would like to return home. Medical Devices ImplantedTypeAreaManufacturerDevice IdentifierShelf Expiration DateModel / Serial / LotCement Bn Traumacem V+ Polymethylmethacrylate Gls Inj Pwdr - [id number] Implanted:Qty: 1 on 07/13/2025 [facility]: FemurDEPUY SYNTHES SALES.702.040S / / [id number] Bn Traumacem V+ Polymethylmethacrylate Gls Inj Pwdr - [id number] Implanted:Qty: 1 on 08/06/2025 by [facility]Left: FemurDEPUY SYNTHES [id number]/31/202707.702.040S / / [id number] Aor Evolut Fx 26mm - [id number] - [id number] Implanted:Qty: 1 on 08/17/2023 by [facility] ValveN/A: AortaMEDTRONIC HEARTEVOLUTFX-26 / [id number] / Nail Im 400mm 10mm 125d Cnn Tfn-Adv Lat Rlf Cut Ti Niobium - [id number] Implanted:Qty: 1 on 07/13/2025 by [facility]ail[facility]: FemurDEPUY eyeOS 304.037.030S / / [id number] Im 400mm 10mm 125d Cnn Tfn-Adv Lat Rlf Cut Ti Niobium - [id number] Implanted:Qty: 1 on 08/06/2025 by [facility]: FemurDEPUY eyeOS 504.037.031S / / [id number] Im Nl Au 75mm 10.35mm Tfn-Adv Hlcl Fem Prox Ti Niobium - [id number] Implanted:Qty: 1 on 07/13/2025 by [facility] ImplantRight: FemurDEPUY eyeOS 404.038.375S / / [id number] Im Nl Au 80mm 10.35mm Tfn-Adv Hlcl Fem Prox Ti Niobium - [id number] Implanted:Qty: 1 on 08/06/2025 by Ra Marinelli MD at [facility] ImplantLeft: FemurDEPUY eyeOS 504.038.380S / / [id number] ImplantOther ImplantDescription:prorammable shuntScrew Lck Lght Grn 40mm 5mm X25 Fem Ti Niobium Al Strl - [id number] Implanted:Qty: 1 on 07/13/2025 by [facility]wRight: FemurDEPUY eyeOS 03/14/203004.045.040TS / / [id number] Bn 44mm 5mm Lck X25 Strl Lf Im Nl - [id number] Implanted:Qty: 1 on 07/13/2025 by Ra Marinelli MD at [facility]crewRight: FemurDEPUY SYNTHES SALES.045.044TS / / [id number] Lck Lght Grn 40mm 5mm X25 Fem Ti Niobium Al Strl - [id number] Implanted:Qty: 1 on 08/06/2025 by Ra Marinelli MD at [facility]crewLeft: FemurDEPUY SYNTHES [id number]/30/202904.045.040TS / / [id number] Bn 44mm 5mm Lck X25 Strl Lf Im Nl - [id number] Implanted:Qty: 1 on 08/06/2025 by Ra Marinelli MD at [facility]crewLeft: FemurDEPUY SYNTHES [id number]/31/202904.045.044TS / / [id number] Procedures Procedure NamePriorityDate/TimeAssociated DiagnosisCommentsPET CT SKULL TO THIGH Ycawylz7108/31/2025 2:12 PM EDT Malignant neoplasm of upper-outer quadrant of right breast in female, estrogen receptor positive (CMS-HCC) Malignant neoplasm of upper-outer quadrant of right female breast, unspecified estrogen receptor status (CMS-HCC) Metastasis to bone (CMS-HCC) XR FEMUR RT 2+ DHYDBZnfhzjo77/08/2025 10:06 AM EDT 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, subsequent encounter XR FEMUR LT 2+ OHAWIEfofkpe77/22/2025 12:47 PM EDT BEDSIDE OEXMXZMMiifqet07/22/2025 10:02 AM EDT XR FEMUR LT 2+ EXAHCYfrhwcj88/22/2025 9:28 AM EDT SURGICAL MIGHVGQGTXvzugnt87/22/2025 8:30 AM EDT Lesion of left femur ANESTHESIA SPINAL KQNDLClysqcm66/22/2025 8:20 AM EDT UT REINFORCE FEMUR08/06/2025 7:33 AM EDT Lesion of left femur Case Notes (EPIC 107) GAVE 105 WORKING- KATHIE MARTHA table, synthes notified REHAB: [facility] [phone] [facility] [phone]; HANA table, synthes notified TYPE AND WQLHFHMWSR38/22/2025 7:23 AM EDT BEDSIDE NPEWRDKVyidprx17/22/2025 6:40 AM EDT BEDSIDE BYMFCCAOmmhwii98/03/2025 9:01 AM EDT CBC WITH AUTO GTGPCMBGVMUHGhvtlmt19/03/2025 5:33 AM EDT YBJKEHXUSIxngksn80/03/2025 5:33 AM EDT COMPREHENSIVE METABOLIC HWFAARsuspcp35/03/2025 5:33 AM EDT BEDSIDE ZAAIAABKmoohtr40/02/2025 9:41 PM EDT HEMOGLOBIN AND HEMATOCRIT, BDNPKDjzkjyo47/02/2025 7:05 PM EDT BEDSIDE NGAIVGYBpefeoh13/02/2025 6:17 PM EDT BEDSIDE HUBMBTMKknqorv48/02/2025 5:03 PM EDT TRANSFUSE RED BLOOD OZNTEAsqlbps35/02/2025 11:23 AM EDTBEDSIDE GLUCOSERoutine 07/17/2025 11:22 AM EDT TYPE AND GRWIORQajpdxp80/02/2025 8:04 AM EDT BEDSIDE WRDFQUSKhnfrcz66/02/2025 7:56 AM EDT CROSSMATCH FBMSfedmgc14/02/2025 7:30 AM EDT CBC WITH AUTO CTTNVUMPRZAYJdjwjwv06/02/2025 5:41 AM EDT SMDVIVTJZYpeydgq11/02/2025 5:41 AM EDT COMPREHENSIVE METABOLIC POBUVAqbktcc07/02/2025 5:41 AM EDT BEDSIDE SVCELDOPrlkxku95/01/2025 9:13 PM EDT BEDSIDE XGQRSRTKxeafym31/01/2025 6:35 PM EDT BEDSIDE EWMFKPCWdmofvy04/01/2025 2:05 PM EDT BEDSIDE WNQHWUUDusnstp13/01/2025 8:28 AM EDT LACTATE W/ HUBVRDMuhyhgy88/01/2025 6:30 AM EDT CBC WITH AUTO NBSLGKFICSWNUwerpyl07/01/2025 6:30 AM EDT UUBAURLXSDjspqae71/01/2025 6:30 AM EDT COMPREHENSIVE METABOLIC BFZWGGhdfgzp59/01/2025 6:30 AM EDT BEDSIDE ACVYGHVGehgxnv63/31/2025 9:20 PM EDT BEDSIDE QGFOYUYUsjdsey39/31/2025 5:11 PM EDT MRSA PCR NASAL AJVFQwdovqm22/31/2025 3:04 PM EDT BEDSIDE DZPOVAFVjbvjgg82/31/2025 11:31 AM EDT BEDSIDE LIDCGZXResxphz04/31/2025 7:42 AM EDT CBC WITH AUTO PLHNANJFNUZSIuutqtf47/31/2025 7:01 AM EDT NCZWQSJLDOoimnia29/ 7:01 AM EDT COMPREHENSIVE METABOLIC EJQYZHdbkhnl22/31/2025 7:01 AM EDT MICROALBUMIN / CREATININE URINE TULKBMmnouao42/31/2025 3:26 AM EDT URINE CREATININE,XRPTDATrmnbig29/31/2025 3:26 AM EDT SODIUM, URINE, YLTYNNOzlnjjw45/31/2025 3:26 AM EDT KVMNFHOXIRVrmxyco79/31/2025 3:26 AM EDT URINE FLCDRGDKxxzujf64/31/2025 3:26 AM EDT HEMOGLOBIN AND HEMATOCRIT, KIXZZBzavptr33/30/2025 11:07 PM EDT BEDSIDE SPEWPVHYfuucvf26/30/2025 9:58 PM EDT TRANSFUSE RED BLOOD UEAPBRbosqfq48/30/2025 7:56 PM ATZQHOIVXQTVQI46/30/2025 5:42 PM EDT MAGNESIUMSTAT Add-on07/14/2025 5:42 PM EDT COMPREHENSIVE METABOLIC PANELSTAT Add-on07/14/2025 5:42 PM EDT BEDSIDE UVEBETDGzmnyzk93/30/2025 4:58 PM EDT CBC WITH AUTO GHIEANQTPQVIEOYG39/30/2025 4:58 PM EDT LACTATE W/ ABSRGGLXNM69/30/2025 4:18 PM EDT BLOOD IVDDBQLWNPW86/30/2025 4:17 PM EDT BLOOD AYYVZWSRYIR93/ 4:17 PM EDT XR CHEST 1 QFUARZ9907/14/2025 3:37 PM EDT HEMOGLOBIN AND HEMATOCRIT, PBLIDOuqfmtw45/30/2025 12:02 PM EDT BEDSIDE OPKBWSAXimoaui55/30/2025 11:08 AM EDT BEDSIDE PHDWIAWAqiwuto34/30/2025 7:30 AM EDT PROCALCITONINSTAT Add-on07/14/2025 5:58 AM EDT PHOSPHORUSSTAT Add-on07/14/2025 5:58 AM EDT RETICULOCYTESAdd-On07/14/2025 5:58 AM EDT LDHAdd-On07/14/2025 5:58 AM EDT HEMOGLOBIN K2ATgyxwjs84/30/2025 5:58 AM EDT CBC WITH AUTO QBISNWMKNRKRAkmwlvy41/30/2025 5:58 AM EDT KAXSNXFKYJwfmqit63/30/2025 5:58 AM EDT COMPREHENSIVE METABOLIC KNMGXFkzqiox73/30/2025 5:58 AM EDT BEDSIDE XGCDQSLBwhpfwd34/29/2025 9:40 PM EDT BEDSIDE VXITIJRGbzanbb94/29/2025 3:56 PM EDT EXTRA TUBES LAVENDER HOGZyqlflt91/29/2025 2:08 PM EDT HAPTOGLOBINAdd-On07/13/2025 2:08 PM EDT EXTRA JDGMBZzkgqtf38/29/2025 2:08 PM EDT HE4, XNjwcslh40/29/2025 2:08 PM EDT CANCER ANTIGEN 27.29Add-On07/13/2025 2:08 PM EDT BEDSIDE GHPWFRBHarwply88/29/2025 12:21 PM EDT XR FEMUR LT 2+ YOJAFMcnesnk78/29/2025 11:42 AM EDT XR FEMUR RT 2+ WOKUGCjbyrzs30/29/2025 11:29 AM EDT XR FEMUR RT 2+ YMCHZRhjzqxs40/29/2025 9:30 AM EDT SURGICAL CCWVLDHXKRzrbptu97/29/2025 8:38 AM EDT Pathological fracture of right hip due to other disease, [place] AN ELECTIVE ENDOTRACHEAL ECMCUQHnoahnd94/29/2025 7:41 AM EDT UT OPEN FIX INTER/SUBTROCH FX,RKECBF1707/13/2025 7:34 AM EDT Pathological fracture of right hip due to other disease, initial [place] INSERTION INTRAMEDULLARY NAIL FEMUR07/13/2025 7:34 AM EDT Pathological fracture of right hip due to other disease, initial encounter [place] BEDSIDE RFRWGORAngltfu89/29/2025 7:10 AM EDT CA 125Add-On07/13/2025 5:58 AM EDT CANCER ANTIGEN 48-0Smx-Zw01/29/2025 5:58 AM EDT VITAMIN U95Rvv-Oa45/29/2025 5:58 AM EDT FOLATEAdd-On07/13/2025 5:58 AM EDT FERRITINAdd-On07/13/2025 5:58 AM EDT IRON AND TIBCAdd-On07/13/2025 5:58 AM EDT PROTIME & DOTTpyeubt92/29/2025 5:58 AM EDT CBC WITH AUTO WLVYQDWYMPEYOizkdkm39/29/2025 5:58 AM EDT RYPKKVLPFXscvfcg00/29/2025 5:58 AM EDT COMPREHENSIVE METABOLIC LOYECXtgvdeg54/29/2025 5:58 AM EDT ECG 12-NTPQBCJO48/28/2025 9:44 PM EDT BEDSIDE WEWASQPRlsdmlx95/28/2025 9:44 PM EDT TYPE AND DERVHETeuhfsg63/28/2025 9:34 PM EDT CMESVdkcvhk85/28/2025 9:34 PM EDT PROTIME & PLTLIGG6207/12/2025 9:34 PM EDT CROSSMATCH OJTPwmicxf61/28/2025 9:30 PM EDT XR CHEST 1 CNRugsvrt28/28/2025 9:23 PM EDT XR FEMUR RT 2+ KSREFAieppox25/28/2025 7:44 PM EDT XR HIP RT 2-3 VIEWS W OR WO EELSYLCiohpbb64/28/2025 7:41 PM EDT XR SKULL 1-3 VWS ZZXZUEVKefvxup70/28/2025 5:05 PM EDT BEDSIDE JSVVPBZQtdaffs94/28/2025 11:24 AM EDT MR PELVIS W WO RQXBVyhjmwa08/28/2025 11:12 AM EDT CBC WITH AUTO NJKXCMCIHFNBUepvcfb67/28/2025 5:25 AM EDT KFISRIWOZTbpiail15/28/2025 5:25 AM EDT COMPREHENSIVE METABOLIC SBLRDRhukokz20/28/2025 5:25 AM EDT BEDSIDE MAKJRDMQgbqrtc02/27/2025 7:30 PM EDT BEDSIDE QHLFWBEIgamadz19/27/2025 4:13 PM EDT BEDSIDE OFWMJIOIwwtgtx34/27/2025 1:31 PM EDT EXTRA TUBES BLUE BWZSbblucl91/27/2025 4:17 AM EDT EXTRA BRJAFRqfxcbf41/27/2025 4:17 AM EDT CBC WITH AUTO AKFSTEZRDLODGlkochn06/27/2025 4:17 AM EDT KGBJLUAWOZcgcvqf14/27/2025 4:17 AM EDT COMPREHENSIVE METABOLIC ONGPDZndbqux77/27/2025 4:17 AM EDT BEDSIDE XYYWFKYVrcwtzu92/26/2025 10:03 PM EDT BEDSIDE PBBKIJRFlnkjox38/26/2025 6:35 PM EDT EXTRA TUBES LAVENDER RKHDuhdrof67/26/2025 5:08 PM EDT EXTRA TUBES BLUE WJEGijzsvq02/26/2025 5:08 PM EDT EXTRA UPRUVAdinpiz76/26/2025 5:08 PM EDT COMPREHENSIVE METABOLIC SKNUBOHPP34/26/2025 5:08 PM EDT BEDSIDE RVECXBGXvqgugu65/21/2025 5:49 PM EDT BEDSIDE JFNVZQAGjgdpsp08/21/2025 10:56 AM EDT BEDSIDE BFPYJJCVtvysfd12/21/2025 7:34 AM EDT CBC WITH AUTO JGRFLTTXRXMFOtkhcoq66/21/2025 6:32 AM EDT HZTCEQHLNRpktsra22/21/2025 6:32 AM EDT COMPREHENSIVE METABOLIC UGTLLRpidmmr78/21/2025 6:32 AM EDT BEDSIDE RLPWCCHHwtiqds33/20/2025 9:17 PM EDT BEDSIDE RYIDEPDRqjtmyn75/20/2025 4:10 PM EDT BEDSIDE CJKSCZQGouovks21/20/2025 11:12 AM EDT BEDSIDE CQRDAJTFrvrdho20/20/2025 7:25 AM EDT CBC WITH AUTO TDHCVGESUGWWRaxbtle47/20/2025 5:44 AM EDT BBPBSJMOEMQbhbvbm42/20/2025 5:44 AM EDT MGHYQXZXYUytezuo88/20/2025 5:44 AM EDT COMPREHENSIVE METABOLIC YQNOUQemxlet81/20/2025 5:44 AM EDT BEDSIDE HZZSUCUNbgditc56/19/2025 8:23 PM EDT BEDSIDE RMZEZFNMyptgip16/19/2025 4:55 PM EDT XR ABDOMEN AP 1 MAWMWZ9707/03/2025 2:42 PM EDT BEDSIDE KCCRTDYAuygnbk53/ 11:41 AM EDT BEDSIDE MAPYFFNDesfutq95/19/2025 7:58 AM EDT CBC WITH AUTO SORNBHMQFODAXulscen05/19/2025 5:22 AM EDT CTGIVDSMEFFebfmwz66/19/2025 5:22 AM EDT THQFOFABZYrxuyhm97/19/2025 5:22 AM EDT COMPREHENSIVE METABOLIC ABPTFWyykzmo87/19/2025 5:22 AM EDT BEDSIDE HQVILJIVlptglf67/18/2025 7:08 PM EDT AMWRSLNMNQAnxiknk61/18/2025 6:44 PM EDT PULSE OXIMETRY, IXXRTqoczjk77/18/2025 6:12 PM EDTUS PELVIC WITH DUPLEXSTAT 07/02/2025 1:26 PM EDT POCT NURSING URINE MACROSCOPIC TBOtbuytr56/18/2025 12:49 PM EDT ER EXTRA URINE IPJPSHPQYZ29/18/2025 12:40 PM EDT ER EXTRA LULYCIEFS14/18/2025 12:40 PM EDT URINE RIAGVJKWJBO01/18/2025 12:40 PM EDT TROP I, HIGH SENSITIVITY 1 SBCHQINI22/18/2025 12:[address] BRAIN WO KXWEIBHY42/18/2025 12:[address] ABDOMEN AND PELVIS W TBTWQEKY76/18/2025 11:50 AM EDT XR CHEST 1 ZDZFLS9507/02/2025 11:24 AM EDT ECG 12-GZXITKIV63/18/2025 10:57 AM EDT BLOOD PILEUVUMWNA16/18/2025 10:45 AM EDT EXTRA TUBES LAVENDER JYKNlkkenl66/18/2025 10:39 AM EDT EXTRA TUBES BLUE STKGvzjyqb34/18/2025 10:39 AM EDT EXTRA AIKSVKdybimc10/18/2025 10:39 AM EDT EXTRA SFWHIGgdnqmu73/18/2025 10:39 AM EDT TROPONIN I, HIGH SENSITIVITY 0 YZDKWGGJ61/18/2025 10:38 AM EDT TROPONIN I, HIGH SENSITIVITY 0 CHGFESEN12/18/2025 10:38 AM EDT GKDEOUSAJFEUB07/18/2025 10:38 AM EDT LACTATE W/ FZRKAHKAPW12/18/2025 10:38 AM EDT MSPPSMHRUM48/18/2025 10:38 AM EDT COMPREHENSIVE METABOLIC RIIYPVDOD42/18/2025 10:38 AM EDT CBC WITH AUTO AERUXLONNSHATRPC77/18/2025 10:38 AM EDT BLOOD WSGUJIYRCJI39/18/2025 10:38 AM EDT MULTIPLE TWJGDoxqojz89/12/2025 9:41 AM EDTBEDSIDE BBYLVNDGtqsvyq50/30/2025 11:04 AM EDT EXTRA TUBES BLUE BYLWtqwxow65/30/2025 5:44 AM EDT EXTRA KUYOWFkvcbfu80/30/2025 5:44 AM EDT CBC WITH AUTO YXBFLMZAGADPTeeoptm48/30/2025 5:44 AM EDT CRVSJJPZODmefqab87/30/2025 5:44 AM EDT COMPREHENSIVE METABOLIC PNWSSRenreuk91/30/2025 5:44 AM EDT CONHQLTSHSAMGB76/30/2025 1:01 AM EDT URINE QLKJZXGSHUU89/30/2025 1:01 AM EDT BEDSIDE TFKKZTYFhofmto15/29/2025 9:08 PM EDT BEDSIDE JFGXQLIXzlxkip82/29/2025 4:38 PM EDT BEDSIDE DYCRCPGTetudoq47/29/2025 12:02 PM EDT BEDSIDE BIEHCJKGkakgbg72/29/2025 7:58 AM EDT CBC WITH AUTO OZDHJQGFARPDOnexihh75/29/2025 4:52 AM EDT NULKZULYCInxekvr12/29/2025 4:52 AM EDT COMPREHENSIVE METABOLIC QVYMTJrmrjza07/29/2025 4:52 AM EDT BEDSIDE XATWSUXRwuskky00/28/2025 8:50 PM EDT BEDSIDE FSUOBMVWxoggxa04/28/2025 4:41 PM EDT BEDSIDE LMSWQZSCtctrph78/28/2025 2:44 PM EDT BEDSIDE JJSXIHXXxtomxt31/28/2025 9:13 AM EDT PLATELET CGRQPYrhzyvy00/28/2025 5:17 AM EDT RBZWDPYIDKYtlfohn24/28/2025 5:17 AM EDT UAAOSjuuwhg73/28/2025 5:17 AM EDT EXTRA TUBES PST UTBDrcnxpk67/28/2025 5:16 AM EDT MAGNESIUMAdd-On06/11/2025 5:16 AM EDT EXTRA THRIOYupokfr17/28/2025 5:16 AM EDT TROP I, HIGH SENSITIVITY 1 CPYWWGSF69/28/2025 2:[address] ABDOMEN AND PELVIS WO DRDQHYYV18/28/2025 2:11 AM EDT XR CHEST 1 HJAFGX5106/11/2025 2:11 AM EDT EXTRA TUBES BLUE DSGMncxbvu58/28/2025 12:58 AM EDT EXTRA JYEWWJpgeryh13/28/2025 12:58 AM EDT B-TYPE NATRIURETIC ZRAXFBCBLSU98/28/2025 12:58 AM EDT TROPONIN I, HIGH SENSITIVITY 0 KCZSANWG27/28/2025 12:58 AM EDT CK RKGKDZAFY37/28/2025 12:58 AM EDT THYROID PROFILE INCLUDES TSH QA9VQON8806/11/2025 12:58 AM EDT CTYWERDXPKOHU28/28/2025 12:58 AM EDT TROPONIN I, HIGH SENSITIVITY 0 QFKLRHOF92/28/2025 12:58 AM EDT COMPREHENSIVE METABOLIC YIZMDLOKP14/28/2025 12:58 AM EDT CBC WITH AUTO IMMQKWNNTHNLWBRP92/28/2025 12:58 AM EDT ECG 12-XGFSRSTR96/28/2025 12:51 AM EDT POCT NURSING URINE MACROSCOPIC BUFozsite44/27/2025 1:29 PM EDT URINE IILIVVWTSMS79/27/2025 1:27 PM EDT COMPREHENSIVE METABOLIC GXISJQBZC28/27/2025 10:55 AM EDT CBC WITH AUTO CTHUYGMWJCNTKKSS62/27/2025 10:55 AM EDT EXTRA TUBES BLUE PYVSxltble70/27/2025 10:54 AM EDT EXTRA AIFWLFwcijxp94/27/2025 10:54 AM EDT from Last 3 Months Results * PET CT skull to thigh [...] Joana Leary MDIMHemant PET ORDERABLES Final Result * X-ray femur right 2+ views (08/22/2025 10:06 AM EDT) Only the most recent of4 resultswithin the time period is included. 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 There is no new or acute process. No evidence of hardware complication. Lucent femoral diaphyseal lesions are stable. Degenerative changes and osteopenia noted as well. Finalized by Sang Acevedo MD on 08/22/2025 1:44 PM Procedure Note Sang Acevedo MD - 08/22/2025 XR FEMUR RT 2+ VIEWS Clinical history:Pathological fracture of right hip due to neoplasticdisease with routine healing, subsequent encounter Comparison: 07/13/2025 Impression: Stable postoperative changes in alignment. There is no new or acuteprocess. No evidence of hardware complication. Lucent femoral diaphyseallesions are stable. Degenerative changes and osteopenia noted as well. Finalized by Sang Acevedo MD on 08/22/2025 1:44 PM Authorizing ProviderResult TypeResult StatusRa Marinelli MDIMG DIAGNOSTIC IMAGING ORDERABLESFinal Result * X-ray femur left 2+ views (08/06/2025 12:47 PM EDT) Only the most recent of3 resultswithin the time period is included. Anatomical RegionLateralityModalityLower Extremities, MSK, FemurLeftComputed RadiographySpecimen (Source)Anatomical Location / LateralityCollection Method / VolumeCollection TimeReceived Time08/08/2025 12:35 AM EDT Narrative 08/08/2025 12:37 AM EDT EXAM: XR FEMUR LT 2+ VIEWS CLINICAL INFORMATION: Postop. COMPARISON: 07/13/2025 FINDINGS: There are postsurgical changes compatible with interval femoral ORIF transfixing fractures of the proximal femoral diaphysis. Cement material in the femoral neck are noted. There is no convincing radiographic evidence for hardware complications or failure. There is no change in fracture alignment. Soft tissue air and skin tiny are compatible with the patient's recent postoperative status. IMPRESSION: Interval femoral ORIF transfixing fractures of the proximal femur. There is no convincing radiographic evidence for hardware complications or failure. There is no change in fracture alignment. Immediate postoperative changes are noted. Finalized by Laci Lima MD on 08/08/2025 12:37 AM Procedure Note Laci Lima MD - 08/08/2025 EXAM: XR FEMUR LT 2+ VIEWS CLINICAL INFORMATION: Postop. COMPARISON: 07/13/2025 FINDINGS: There are postsurgical changes compatible with interval femoral ORIFtransfixing fractures of the proximal femoral diaphysis. Cement materialin the femoral neck are noted. There is no convincing radiographicevidence for hardware complications or failure. There is no change infracture alignment. Soft tissue air and skin tiny are compatible with the patient's recent postoperative status. IMPRESSION: Interval femoral ORIF transfixing fractures of the proximal femur. Thereis no convincing radiographic evidence for hardware complications orfailure. There is no change in fracture alignment. Immediate postoperativechanges are noted. Finalized by Laci Lima MD on 08/08/2025 12:37 AM Authorizing ProviderResult TypeResult Lawrence Thomas PA-[facility] ORDERABLESFinal Result * (ABNORMAL) Bedside Glucose *Place/Obtain serum glucose if >500 per glucometer. (08/06/2025 10:02AM EDT) Only the most recent of52 resultswithin the time period is included. ComponentValueRef RangeTest MethodAnalysis TimePerformed AtPathologist Signature Bedside Glucose (POC)133(H)65 - 99 mg/dL08/06/2025 10:07 AM [facility] LABORATORYSpecimen (Source)Anatomical Location / LateralityCollection Method / VolumeCollection TimeReceived Timearterial/prwubzcha12/22/2025 10:02 AM EDT 08/06/2025 10:07 AM EDT Narrative Authorizing ProviderResult TypeResult Sean Marinelli [facility] TEST ORDERABLESFinal ResultPerforming OrganizationAddressCity/State/ZIP CodePhone Number [facility] [address] [place] [address], * Surgical Pathology (08/06/2025 8:30 AM EDT) Only the most recent of2 resultswithin the time period is included. ComponentValueRef RangeTest MethodAnalysis TimePerformed AtPathologist Signature Case ReportSurgical Pathology Report ? Case: [id number] ? Authorizing Provider: ??Ra Marinelli MD ? Collected: ? 08/06/2025 0830 ? Ordering Location: ? [facility] ??Received: ?08/06/2025 1009 ? - Surgery ? Pathologist: ? Ruma Bhatia DO ? Specimen: ?Femur, Left, LEFT FEMORAL REAMINGS ? 08/13/2025 3:48 PM [facility] LABORATORYFinal DiagnosisLeft femur, reamings: INVOLVED BY METASTATIC CARCINOMA. See comment.08/13/2025 3:48 PM [facility] at 1548 EDTCommentImmunohistochemical stains are performed with appropriate controls. Malignant epithelial cells are present and are positive for CK7 and GATA3, consistent with the patient's history of primary breast c arcinoma. Malignant cells are positive for ER and negative for UT and HER2 (please see breast biomarker reporting template).08/13/2025 3:48 PM [facility] LABORATORYGross DescriptionReceived in formalin labeled GULAU, left femoral reamings are cordon delicate to friable soft fragments of bone admixed with cordon soft tissue, 3 x 2.7 x 0.2 cm in aggregate. The specimens are filtered and submitted in a single cassette. (1,ns,[id number], m6.1) TB 08/13/2025 3:48 PM [facility] LABORATORYSynoptic Checklist Breast Biomarker Reporting Template BREAST BIOMARKER REPORTING TEMPLATE - All Specimens Protocol posted: 01/31/2025 ?? Testing Performed on Specimen / Block Number(s): ?1B ?? Estrogen Receptor (ER) Status: ?Positive (greater than 10% of cells demonstrate nuclear positivity) ? Percentage of Cells with Nuclear Positivity: ?81-90% ? Average Intensity of Staining: ?Strong (3+) ?? Status of Internal Controls: ?Internal control absent; external controls stain as expected ?? Progesterone Receptor (PgR) Status: ?Negative (less than 1%) ?? Status of Internal Controls: ?Internal control absent; external controls stain as expected ?? HER2 by Immunohistochemistry (IHC) Status: ?Negative (Score 0) ? : ?No membrane staining detected (0 / absent membrane staining) METHODS Cold Ischemia and Fixation Times: ?Meet requirements specified in latest version of the ASCO / CAP Guidelines ER Testing Methodology: ? ER Test Type: ?Food and Drug Administration (FDA) cleared (test / vendor): [employer] ?? ER Primary Antibody: ?SP1 PgR Testing Methodology: ? PgR Test Type: ?Food and Drug Administration (FDA) cleared (test / vendor): [employer] ?? PgR Primary Antibody: ?1E2 HER2 IHC Testing Methodology: ? HER2 IHC Test Type: ?Food and Drug Administration (FDA) cleared (test / vendor): [employer] ?? HER2 IHC Primary Antibody: ?4B5 Image Analysis: ?Not xhqolpixu43/29/2025 3:48 PM [facility] LABORATORYEmbedded Rtmkww6208/13/2025 3:48 PM [facility] LABORATORYSpecimen (Source)Anatomical Location / LateralityCollection Method / VolumeCollection TimeReceived TimeTissue (Femur, Left)08/06/2025 8:30 AM EDT 08/06/2025 10:09 AM EDTComment:Pre-op diagnosis: Lesion of left femur [M89.9] Narrative Authorizing ProviderResult TypeResult StatusRa Marinelli MDPATHOLOGY/CYTOLOGY ORDERABLESFinal ResultPerforming OrganizationAddressCity/State/ZIP CodePhone Number [facility] [address] [place] [address], * Spinal Block (08/06/2025 8:20 AM EDT) Jessenia Hunter SRNA - 08/06/2025 8:20 AM EDT STEPH Vizcaino 08/06/2025 9:10 AM Spinal Block Patient Location: ??OR Start Time: ??08/06/2025 7:49 AM End Time: ??08/06/2025 7:49 AM Reason for Block: Primary Anesthetic ?? IV In situ: ??Peripheral General Information and Staff: Service Provider: ??Azeem Luna MD PARTS ROOM ASSOCIATE: Danyell Fitzpatrick APRN-PARTS ROOM ASSOCIATE Student: ??STEPH Vizcaino Placed by: STEPH Vizcaino Checklist: Patient Identified, IV Checked, Site Marked, Risks and Benefits Discussed, Surgical Consent, Monitors and Equipment Checked, Pre-op Evaluation and Timeout Performed Fire Risk Assessment Score: 0 Patient Positioning and Technique: Patient Position: ??Sitting Prep: Chlorhexidine, Maximum Sterile Barriers Used and Patient Draped ?? Monitoring: ??Heart Rate, Continuous Pulse Ox, Blood Pressure and Pharmacy Technician Infusion Oxygen Source: ??Nasal Cannula Approach: ??Midline Location: ??L4-L5 Injection Technique: ??Single-Shot Placement Technique: Murchison Technique ?? Placement Technique: not ultrasound guided ??not ultrasound guided Local Infiltration: ??Lidocaine 1% Dose: ??2 mL Needle: Needle Type: ??Pencan/Atraucan Needle Gauge: ??25 G Catheter Type: ??Open End Anesthesia Block Medication Given: bupivacaine PF (MARCAINE) 0.75 % (7.5 mg/mL) injection - intrathecal 1.6 mL - 08/06/2025 7:49:00 AM epinephrine wash performed Number of Attempts: ??1 CSF Comment: ??Clear Free-Flowing CSF Assessment: Sensory Level: ??T10 Injection Assessment: ??No Paresthesia on Injection and No Pain on Injection Authorizing ProviderResult TypeResult StatusSean Prem Luna MDANESTHESIA ORDERABLESEdited Result - Final * Type and screen (Pre-op) (08/06/2025 7:23 AM EDT) Only the most recent of3 resultswithin the time period is included. ComponentValueRef RangeTest MethodAnalysis TimePerformed AtPathologist Signature ABOO08/06/2025 9:17 AM [facility] VWPLFSCFSOXMIbcfvszv17/22/2025 9:17 AM [facility] LABORATORYAntibody YhjfcdSmumforp49/22/2025 9:17 AM EDT [facility] LABORATORYSpecimen (Source)Anatomical Location / Laterality Collection Method / VolumeCollection TimeReceived TimeBloodVenous blood / UnknownVenipuncture / Jcyipbo2708/06/2025 7:23 AM EDT08/06/2025 8:19 AM EDT Narrative Authorizing ProviderResult TypeResult StatusSean Prem Luna MDWADENA [facility] TEST ORDERABLESEdited Result - FinalPerforming OrganizationAddressCity/State/ZIP CodePhone Number [facility] [address] [place] [address], [facility] [address] [place] [address], * (ABNORMAL) CBC auto differential (07/18/2025 5:33 AM EDT) Only the most recent of17 resultswithin the time period is included. ComponentValueRef RangeTest MethodAnalysis TimePerformed AtPathologist Signature WBC8.84 - 11 x10E9/L07/18/2025 7:34 AM [facility] LABORATORYRBC Count2.97(L)3.8 - 5.2 X10E12/L07/18/2025 7:34 AM [facility] LABORATORYHemoglobin8.4(L)11.7 - 15.5 g/dL07/18/2025 7:34 AM [facility] ZYRDLLQQZDHdzzjpjgbb58.0(L)35 - 47 %07/18/2025 7:34 AM [facility] QCYDUANNCTRDE9256 - 100 fL07/18/2025 7:34 AM [facility] BGDRKKSPVZMOT28.327 - 34 pg07/18/2025 7:34 AM [facility] IWNRISQKIBPVXT05.832 - 36 g/dL07/18/2025 7:34 AM [facility] ODPQFZDCPPIHP96.1(H)11.5 - 15 %07/18/2025 7:34 AM [facility] LABORATORYPlatelet Bcwoq928493 - 450 X10E9/L07/18/2025 7:34 AM [facility] LABORATORYMPV7.97 - 12 fL07/18/2025 7:34 AM [facility] LABORATORYMyelocyte %2%07/18/2025 7:34 AM [facility] LABORATORYComment:This is an appended report. These results have been appended to a previously preliminary verified report.Bands %1% 07/18/2025 7:34 AM [facility] LABORATORYComment:This is an appended report. These results have been appended to a previously preliminary verified report.Neutrophils %66%07/18/2025 7:34 AM [facility] LABORATORYComment:This is an appended report. These results have been appended to a previously preliminary verified report.Lymphocytes %18%07/18/2025 7:34 AM [facility] LABORATORYComment:This is an appended report. These results have been appended to a previously preliminary verified report.Monocytes %8%07/18/2025 7:34 AM [facility] LABORATORYComment:This is an appended report. These results have been appended to a previously preliminary verified report.Eosinophils %5%07/18/2025 7:34 AM [facility] LABORATORYComment:This is an appended report. These results have been appended to a previously preliminary verified report.Neutrophils Absolute (M)5.91.5 - 6.6 10*3/uL07/18/2025 7:34 AM [facility] LABORATORYComment:This is an appended report. These results have been appended to a previously preliminary verified report.Lymphocytes Absolute1.61.0 - 3.5 10*3/uL07/18/2025 7:34 AM [facility] LABORATORYComment:This is an appended report. These results have been appended to a previously preliminary verified re port.Monocytes Absolute0.70.0 - 0.9 10*3/uL0901/2025 7:34 AM [facility] LABORATORYComment:This is an appended report. These results have been appended to a previously preliminary verified report.Eosinophils Absolute0.40.0 - 0.4 10*3/uL07/18/2025 7:34 AM [facility] LABORATORYComment: This is an appended report. These results have been appended to a previously preliminary verified report.Polychromasia1+07/18/2025 7:34 AM [facility] LABORATORYComment:This is an appended report. These results have been appended to a previously preliminary verified report.Elliptocytes1+07/18/2025 7:34 AM [facility] LABORATORYComment:This is an appended report. These results have been appended to a previously preliminary verified re port.Differential TypeMANUAL MIHLYENFYBEQ78/03/2025 7:34 AM [facility] LABORATORYComment:This is an appended report. These results have been appended to a previously preliminary verified report.Specimen (Source)Anatomical Location / LateralityCollection Method / VolumeCollection TimeReceived Time BloodVenous blood / UnknownVenipuncture / Owgvyds0707/18/2025 5:33 AM EDT 07/18/2025 6:07 AM EDT Narrative Authorizing ProviderResult TypeResult StatusRenee Godfrey [facility]TER[facility] STACKER-[facility] BLOOD ORDERABLESFinal ResultPerforming OrganizationAddressCity/State/ZIP CodePhone Number [facility] [address] [place] [address], * Magnesium (07/18/2025 5:33 AM EDT) Only the most recent of17 resultswithin the time period is included. ComponentValueRef RangeTest MethodAnalysis TimePerformed AtPathologist Signature MAGNESIUM1.81.8 - 2.6 mg/dL07/18/2025 6:57 AM [facility] LABORATORYSpecimen (Source)Anatomical Location / LateralityCollection Method / VolumeCollection TimeReceived TimeBloodVenous blood / UnknownVenipuncture / Mhxljlg3307/18/2025 5:33 AM EDT07/18/2025 6:04 AM EDT Narrative Authorizing ProviderResult TypeResult StatusRenee Godfrey BATTERY STACKER-CNPLAB BLOOD ORDERABLESFinal ResultPerforming OrganizationAddressCity/State/ZIP CodePhone Number [facility] [address] [place] [address], * (ABNORMAL) Comprehensive metabolic panel (07/18/2025 5:33 AM EDT) Only the most recent of18 resultswithin the time period is included. ComponentValueRef RangeTest MethodAnalysis TimePerformed AtPathologist Signature UQRDRM765365 - 146 mmol/L07/18/2025 6:57 AM [facility] LABORATORYPOTASSIUM4.73.5 - 5.0 mmol/L07/18/2025 6:57 AM [facility] OPGBOZWUBMUFHSGMTU02943 - 109 mmol/L07/18/2025 6:57 AM [facility] LABORATORYCARBON EBWNCIE6956 - 32 mmol/L07/18/2025 6:57 AM [facility] LABORATORYANION GAP55 - 15 mmol/L07/18/2025 6:57 AM [facility] LABORATORYBLOOD UREA KBRAHARB172 - 27 mg/dL07/18/2025 6:57 AM [facility] LABORATORYCREATININE1.18(H)0.40 - 1.00 mg/dL 07/18/2025 6:57 AM [facility] LABORATORYComment:METHOD TRACEABLE TO IDMS YYGTGMIVSRAMJDZ2158 - 99 mg/dL07/18/2025 6:57 AM [facility] LABORATORYCALCIUM9.38.5 - 10.5 mg/dL07/18/2025 6:57 AM EDT [facility] LABORATORYTOTAL PROTEIN5.8(L)6.0 - 8.0 g/dL07/18/2025 6:57 AM [facility] LABORATORYALBUMIN2.8(L)3.2 - 5.3 g/dL 07/18/2025 6:57 AM [facility] LABORATORYALKALINE KZBVDBFMYZB492 39 - 130 U/L07/18/2025 6:57 AM [facility] FKEZFNMMJCZAL84<=41 U/L07/18/2025 6:57 AM [facility] LABORATORYALT<3<=31 U/L 07/18/2025 6:57 AM [facility] LABORATORYBILIRUBIN,TOTAL0.50.3 - 1.2 mg/dL07/18/2025 6:57 AM [facility]ORYEGFR Non-Race Fsogqclxx00(L)>=60 ml/min/1.73sq.m007/18/2025 6:57 AM [facility] LABORATORYComment: Reported eGFR is based on the CKD-EPI 2020 equation that does not use a race coefficient. Specimen (Source)Anatomical Location / LateralityCollection Method / Volume Collection TimeReceived TimeBloodVenous blood / UnknownVenipuncture / Unknown 07/18/2025 5:33 AM EDT07/18/2025 6:04 AM EDT Narrative Authorizing ProviderResult TypeResult StatusRenee Godfrey APRN-[facility] BLOOD ORDERABLESFinal ResultPerforming OrganizationAddressCity/State/ZIP CodePhone Number [facility] [address] [place] [address], * (ABNORMAL) Hemoglobin and hematocrit, blood (07/17/2025 7:05 PM EDT) Only the most recent of3 resultswithin the time period is included. ComponentValueRef RangeTest MethodAnalysis TimePerformed AtPathologist Signature Hemoglobin8.2(L)11.7 - 15.5 g/dL07/17/2025 7:50 PM [facility] HTGWXFNEUIXlucgpurrd44.9(L)35 - 47 %07/17/2025 7:50 PM [facility] LABORATORYSpecimen (Source)Anatomical Location / LateralityCollection Method / VolumeCollection TimeReceived TimeBloodVenous blood / Unknown Venipuncture / Jnxvmzc7907/17/2025 7:05 PM EDT07/17/2025 7:36 PM EDT Narrative Authorizing ProviderResult TypeResult StatusEdel Treadwell NELAB BLOOD ORDERABLESFinal ResultPerforming OrganizationAddressCity/State/ZIP CodePhone Number [facility] [address] [place] [address], * Transfuse RBC:1 Unit (07/17/2025 2:16 PM EDT) Only the most recent of2 resultswithin the time period is included. Narrative Authorizing ProviderResult TypeResult StatusMorgan Strenk PA-CBLOOD TRANSFUSION ORDERABLESFinal Result * Crossmatch RBC:Number of Units: 1 (07/17/2025 7:30 AM EDT) Only the most recent of2 resultswithin the time period is included. ComponentValueRef RangeTest MethodAnalysis TimePerformed AtPathologist Signature Blood component [id number] BANK - WELLSKYUnit [id number] BANK - WELLSKYUnit ABOOBLOOD BANK - WELLSKYUnit RHNEGBLOOD BANK - [place]LLSKY CrossmatchCompatibleBLOOD BANK - WELLSKYStatus of unitTRANSFUSEDBLOOD BANK - WELLSKYExpiration [id number] BANK - WELLSKYBB Type Qaadjhz9051HXJOZ BANK - WELLSKYSpecimen (Source)Anatomical Location / LateralityCollection Method / VolumeCollection TimeReceived TimeBloodVenous blood / Gdyqaxc1507/17/2025 7:30 AM EDT07/17/2025 8:24 AM EDT Narrative Authorizing ProviderResult TypeResult StatusMorgan Strenk PA-CBLOOD BANK PRODUCT ORDERABLESEdited Result - FinalPerforming OrganizationAddressCity/State/ZIP CodePhone Number [facility] - [place] * Lactate w/ Reflex (07/16/2025 6:30 AM EDT) Only the most recent of3 resultswithin the time period is included. ComponentValueRef RangeTest MethodAnalysis TimePerformed AtPathologist Signature LACTATE W/REFLEX1.00.4 - 2.0 mmol/L07/16/2025 7:50 AM EDTTSELECT [facility] LABORATORYSpecimen (Source)Anatomical Location / LateralityCollection Method / VolumeCollection TimeReceived TimeBloodVenous blood / Unknown Venipuncture / Puzbkqx4507/16/2025 6:30 AM EDT07/16/2025 7:07 AM EDT Narrative [facility] - 07/16/2025 7:50 AM EDT Result did not trigger repeat Lactate, re-order if needed. Authorizing ProviderResult TypeResult StatusEdel STANFORD BLOOD ORDERABLESFinal ResultPerforming OrganizationAddressCity/State/ZIP CodePhone Number [facility] [address] [place] [address], [place] [phone] * Mrsa Pcr nasal swab (07/15/2025 3:04 PM EDT)ComponentValueRef RangeTest Method Analysis TimePerformed AtPathologist SignatureMRSA PCR NASALNegativeNegative 07/15/2025 4:32 PM [facility]ORATORYSpecimen (Source) Anatomical Location / LateralityCollection Method / VolumeCollection Time Received TimeSwabStructure of anterior naris / Ixsrrmu9207/15/2025 3:04 PM EDT 07/15/2025 3:14 PM EDT Narrative Authorizing ProviderResult TypeResult StatusRenee Godfrey BATTERY STACKER-CNPMICROBIOLOGY - GENERAL ORDERABLESFinal ResultPerforming OrganizationAddressCity/State/ZIP Code Phone Number [facility] [address] [place] [address], [place] [phone] * Urine Creatinine,random (07/15/2025 3:26 AM EDT)ComponentValueRef RangeTest MethodAnalysis TimePerformed AtPathologist SignatureURINE CREATININE,RDM87.00 mg/dL07/15/2025 5:51 AM [facility] LABORATORYSpecimen (Source)Anatomical Location / LateralityCollection Method / VolumeCollection TimeReceived TimeUrineUrine / Isbpmyn0507/15/2025 3:26 AM EDT07/15/2025 5:19 AM EDT Narrative Authorizing ProviderResult TypeResult StatusJuan Francisco Staton MDURINE ORDERABLES Final ResultPerforming OrganizationAddressCity/State/ZIP CodePhone Number [facility] [address] [place] [address], [place] [phone] * (ABNORMAL) Microalbumin - Albumin: Creatinine Urine Ratio (07/15/2025 3:26 AM EDT)ComponentValueRef RangeTest MethodAnalysis TimePerformed AtPathologist SignatureURINE CREATININE,RDM87.37mg/dL07/15/2025 5:55 AM [facility] LABORATORYMALB/CREAT OGYNG332.9(H)0.0 - 30.0 mg/g007/15/2025 5:55 AM [facility] LABORATORYMICROALBUMIN, URINE12.4(H)0.0 - 1.9 mg/dL07/15/2025 5:55 AM [facility] LABORATORYSpecimen (Source)Anatomical Location / LateralityCollection Method / VolumeCollection TimeReceived RvbtJmnof80/31/2025 3:26 AM EDT07/15/2025 5:18 AM EDT Narrative Authorizing ProviderResult TypeResult StatusJuan Francisco [place] ORDERABLES Final ResultPerforming OrganizationAddressCity/State/ZIP CodePhone Number [facility] [address] [place] [address], * Sodium, urine, random (07/15/2025 3:26 AM EDT)ComponentValueRef RangeTest MethodAnalysis TimePerformed AtPathologist SignatureURINE SODIUM,HJJZDA10 mmol/L07/15/2025 5:55 AM [facility] LABORATORYSpecimen (Source)Anatomical Location / LateralityCollection Method / VolumeCollection TimeReceived KritWklcd94/31/2025 3:26 AM EDT07/15/2025 5:18 AM EDT Narrative Authorizing ProviderResult TypeResult Darrell [place] ORDERABLES Final ResultPerforming OrganizationAddressCity/State/ZIP CodePhone Number [facility] [address] [place] [address], [place] [phone] * (ABNORMAL) Urinalysis (07/15/2025 3:26 AM EDT) Only the most recent of2 resultswithin the time period is included. ComponentValueRef RangeTest MethodAnalysis TimePerformed AtPathologist Signature QWBWIXehloiBogfkn96/31/2025 6:26 AM [facility] TURBIDITYCloudy(A)Clear07/15/2025 6:26 AM [facility] SPECIFIC GRAVITY1.0171.003 - 1.1083007/15/2025 6:26 AM [facility] HIVXXGBYOPCIZZIUGMalxhuuyByrbxirf90/31/2025 6:26 AM [facility] LABORATORYPH,URINE6.05.0 - 8.5007/15/2025 6:26 AM [facility] LABORATORYLEUKOCYTE ESTERASELarge(A)Piphwrug88/31/2025 6:26 AM [facility] FQNFSVCXUGBFJFJTK38 mg/dL(A)Dskznuuu05/31/2025 6:26 AM T [facility] LABORATORYKETONES (URINE)NpmsgbpqRfiuzuqv29/31/2025 6:26 AM [facility] LABORATORYUROBILINOGEN<1.1 eu/dL<1.1 eu/dL 07/15/2025 6:26 AM [facility] LABORATORYBILIRUBIN (URINE) XflzaoqcGbochpxm82/31/2025 6:26 AM [facility] BLOOD/HGBModerate(A)Jequjpaj83/31/2025 6:26 AM [facility] LABORATORYR.B.CELLS47(H)0 - 6:26 AM [facility] LABORATORYSQUAMOUS EPITHELIUM>27(H)0 - 6:26 AM [facility] LABORATORYTRANSITIONAL EPITH1(H)<= 6:26 AM [facility] LABORATORYW.B.SJZOQ769(H)0 - 6:26 AM [facility] LABORATORYWBC CLUMPSFew(A)None07/15/2025 6:26 AM [facility] LABORATORYGLUCOSE (URINE)OizkclffOxetcidv76/31/2025 6:26 AM [facility] LABORATORYSpecimen (Source)Anatomical Location / Laterality Collection Method / VolumeCollection TimeReceived TimeUrineUrine / Unknown 07/15/2025 3:26 AM EDT07/15/2025 5:19 AM EDT Narrative Authorizing ProviderResult TypeResult StatusRenee Godfrey BATTERY STACKER-CNPURINE ORDERABLESFinal ResultPerforming OrganizationAddressCity/State/ZIP CodePhone Number [facility] [address] [place] [address], * Urine Culture Urine, Clean Catch Midstream (07/15/2025 3:26 AM EDT) Only the most recent of4 resultswithin the time period is included. ComponentValueRef RangeTest MethodAnalysis TimePerformed AtPathologist Signature CULTURE QIWZRDE03-02,000 ORGANISMS/mL NORMAL UROGENITAL FLORA07/16/2025 7:20 AM [facility] LABORATORYSpecimen (Source)Anatomical Location / LateralityCollection Method / VolumeCollection TimeReceived TimeUrineUrine specimen collection, clean catch / Ilmmeku0007/15/2025 3:26 AM EDT07/15/2025 5:18 AM EDT Narrative Authorizing ProviderResult TypeResult StatusCharlesmoe Carnes Epifanio RENDONN-CNPMICROBIOLOGY - GENERAL ORDERABLESFinal ResultPerforming OrganizationAddressCity/State/ZIP Code Phone Number [facility] [address] [place] [address], [place] [phone] * (ABNORMAL) Lactate (07/14/2025 5:42 PM EDT)ComponentValueRef RangeTest Method Analysis TimePerformed AtPathologist SignatureLACTATE2.7(H)0.4 - 2.0 mmol/L 07/14/2025 7:00 PM [facility] LABORATORYSpecimen (Source) Anatomical Location / LateralityCollection Method / VolumeCollection Time Received TimeBloodVenous blood / UnknownVenipuncture / Iqfvtyg6107/14/2025 5:42 PM EDT07/14/2025 6:28 PM EDT Narrative Authorizing ProviderResult TypeResult StatusRenee Carnes Epifanio RENDONN-CNPLAB BLOOD ORDERABLESFinal ResultPerforming OrganizationAddressCity/State/ZIP CodePhone Number [facility] [address] [place] [address], [place] [phone] * Blood culture #2 (07/14/2025 4:17 PM EDT) Only the most recent of4 resultswithin the time period is included. ComponentValueRef RangeTest MethodAnalysis TimePerformed AtPathologist Signature CULTURE RESULTSNO GROWTH 5 DAYS07/19/2025 6:01 PM EDTTSELECT [facility] LABORATORYSpecimen (Source)Anatomical Location / LateralityCollection Method / VolumeCollection TimeReceived TimeBloodVenous blood / UnknownVenipuncture / Wmabtxd6907/14/2025 4:17 PM EDT07/14/2025 4:56 PM EDT Narrative Authorizing ProviderResult TypeResult StatusRenee Godfrey BATTERY STACKER-CNPMICROBIOLOGY - GENERAL ORDERABLESFinal ResultPerforming OrganizationAddressCity/State/ZIP Code Phone Number [facility] [address] [place] [address], * X-ray chest 1 view (07/14/2025 3:37 PM EDT) Only the most recent of4 resultswithin the time period is included. Anatomical RegionLateralityModalityBody, ChestN/AComputed RadiographySpecimen (Source)Anatomical Location / LateralityCollection Method / VolumeCollection TimeReceived Time07/14/2025 3:43 PM EDT Narrative 07/14/2025 3:44 PM EDT CLINICAL HISTORY: Sepsis Comparison: ??07/04/2025 Views: ??1 view FINDINGS: * ??Mild basilar atelectasis. Otherwise lungs clear. Heart size stable. No pneumothorax. Old right rib fractures. IMPRESSION: * ?? No active disease nor significant interval change Finalized by Jason Vanegas MD on 07/14/2025 3:44 PM Procedure Note Jason Vanegas MD - 07/14/2025 CLINICAL HISTORY: Sepsis Comparison: 07/04/2025 Views: 1 view FINDINGS: * Mild basilar atelectasis. Otherwise lungs clear. Heart size stable. No pneumothorax. Old right rib fractures. IMPRESSION: * No active disease nor significant interval change Finalized by Jason Vanegas MD on 07/14/2025 3:44 PM Authorizing ProviderResult TypeResult StatusRenee Godfrey APRN-CNPIMG DIAGNOSTIC IMAGING ORDERABLESFinal Result * (ABNORMAL) Procalcitonin (07/14/2025 5:58 AM EDT)ComponentValueRef RangeTest MethodAnalysis TimePerformed AtPathologist SignaturePROCALCITONIN0.34(H)<0.05 ng/mL07/14/2025 4:13 PM EDTTSELECT [facility] LABORATORYSpecimen (Source)Anatomical Location / LateralityCollection Method / VolumeCollection TimeReceived TimeBloodVenous blood / UnknownVenipuncture / Lqrsrxv5207/14/2025 5:58 AM EDT07/14/2025 6:11 AM EDT Narrative [facility] - 07/14/2025 4:13 PM EDT <0.50 ng/mL - Low risk of severe sepsis and/or septic shock. <2.00 ng/mL - Recommend retesting within 6-24 hours. >2.00 ng/mL - High risk of sepsis and/or septic shock. Authorizing ProviderResult TypeResult StatusRenee Godfrey BATTERY STACKER-[employer] BLOOD ORDERABLESFinal ResultPerforming OrganizationAddressCity/State/ZIP CodePhone Number [facility] [address] [place] [address], * LDH (07/14/2025 5:58 AM EDT)ComponentValueRef RangeTest MethodAnalysis Time Performed AtPathologist KxkhyaqojWEO311371 - 235 U/L07/14/2025 10:43 AM EDT [facility] LABORATORYSpecimen (Source)Anatomical Location / LateralityCollection Method / VolumeCollection TimeReceived TimeBloodVenous blood / UnknownVenipuncture / Ehkupzu1707/14/2025 5:58 AM EDT07/14/2025 6:11 AM EDT Narrative Authorizing ProviderResult TypeResult StatusDelisa Perkins BATTERY STACKER-[employer] BLOOD ORDERABLESFinal ResultPerforming OrganizationAddressCity/State/ZIP CodePhone Number [facility] [address] [place] [address], * Reticulocytes (07/14/2025 5:58 AM EDT)ComponentValueRef RangeTest Method Analysis TimePerformed AtPathologist SignatureReticulocyte Count1.60.4 - 2.2 % 07/14/2025 10:45 AM [facility] LABORATORYSpecimen (Source) Anatomical Location / LateralityCollection Method / VolumeCollection Time Received TimeBloodVenous blood / UnknownVenipuncture / Muggvch6207/14/2025 5:58 AM EDT07/14/2025 6:11 AM EDT Narrative Authorizing ProviderResult TypeResult StatusKevinkb Perkins BATTERY STACKER-CNPLAB BLOOD ORDERABLESFinal ResultPerforming OrganizationAddressCity/State/ZIP CodePhone Number [facility] [address] [place] [address], * (ABNORMAL) Phosphorus (07/14/2025 5:58 AM EDT) Only the most recent of4 resultswithin the time period is included. ComponentValueRef RangeTest MethodAnalysis TimePerformed AtPathologist Signature PHOSPHORUS6.1(H)2.4 - 4.9 mg/dL07/14/2025 3:49 PM [facility] LABORATORYSpecimen (Source)Anatomical Location / LateralityCollection Method / VolumeCollection TimeReceived TimeBloodVenous blood / UnknownVenipuncture / Iexxeyp7807/14/2025 5:58 AM EDT07/14/2025 6:11 AM EDT Narrative Authorizing ProviderResult TypeResult StatusCharlesmoe Parsonskyler BATTERY STACKER-CNPLAB BLOOD ORDERABLESFinal ResultPerforming OrganizationAddressty/State/ZIP CodePhone Number [facility] [address] [place] [address], * (ABNORMAL) Hemoglobin A1c (07/14/2025 5:58 AM EDT)ComponentValueRef RangeTest MethodAnalysis TimePerformed AtPathologist SignatureHEMOGLOBIN A1C8.5(H)4.4 - 5.6 %07/14/2025 7:30 AM [facility] LABORATORYComment: ?ADA Guidelines ?Result ?HgbA1c ? Normal : ? less than 5.7 % ? Prediabetes : ?5.7 % ??to 6.4 % Diabetes : > 6.4 % ?Use with caution in patients with abnormal hemoglobin variants as ??the half-life of red blood cells and in vivo glycation rates are ??affected. EST. AVERAGE ADDWVFQ497mg/dL07/14/2025 7:30 AM [facility] LABORATORYSpecimen (Source)Anatomical Location / LateralityCollection Method / VolumeCollection TimeReceived TimeBloodVenous blood / UnknownVenipuncture / Gdqdggy1507/14/2025 5:58 AM EDT07/14/2025 6:11 AM EDT Narrative Authorizing ProviderResult TypeResult StatusRenee Godfrey APRN-[facility] BLOOD ORDERABLESFinal ResultPerforming OrganizationAddressCity/State/ZIP CodePhone Number [facility] [address] [place] [address], * Lavender Top (07/13/2025 2:08 PM EDT) Only the most recent of3 resultswithin the time period is included. ComponentValueRef RangeTest MethodAnalysis TimePerformed AtPathologist Signature Extra TubeAuto Hobgshvb01/29/2025 4:01 PM [facility] Specimen (Source)Anatomical Location / LateralityCollection Method / Volume Collection TimeReceived TimeBloodVenous blood / Dboqvwg6907/13/2025 2:08 PM EDT 07/13/2025 2:17 PM EDT Narrative Authorizing ProviderResult TypeResult StatusMiley Peña [facility] BLOOD ORDERABLESFinal ResultPerforming OrganizationAddressCity/State/ZIP CodePhone Number [facility] [address] [place] [address], * (ABNORMAL) HE4, S (07/13/2025 2:08 PM EDT)ComponentValueRef RangeTest Method Analysis TimePerformed AtPathologist SignatureHE4, S272(H)<=140 pmol/L 07/14/2025 12:05 PM EDTMSHENANDOAH MEMORIAL HOSPITAL LABORATORIESComment: ADDITIONAL INFORMATION The testing method is an electrochemiluminescence assay manufactured by [employer] and performed on the Modular or Pilar system. Values obtained with different assay methods or kits may be different and cannot be used interchangeably. Test results cannot be interpreted as absolute evidence for the presence or absence of malignant disease. Test Performed by: [facility] [address] [place] [address] Clinical Data Management Director: Radha Mccormack Ph.D.; CLIA# [id number] Specimen (Source)Anatomical Location / LateralityCollection Method / Volume Collection TimeReceived TimeBloodVenous blood / UnknownVenipuncture / Unknown 07/13/2025 2:08 PM EDT07/13/2025 2:16 PM EDT Narrative Authorizing ProviderResult TypeResult StatusArtie Spencer BATTERY STACKER-CNPLAB BLOOD ORDERABLESFinal ResultPerforming OrganizationAddressCity/State/[facility] CodePhone Number [facility] [address] [place] [address], * (ABNORMAL) Cancer Antigen 27.29 (07/13/2025 2:08 PM EDT)ComponentValueRef RangeTest MethodAnalysis TimePerformed AtPathologist SignatureCANCER ANTGN 27.04759.5(H)<=39.0 U/mL07/15/2025 12:14 AM EDTACROWNPOINT HEALTHCARE FACILITY LABORATORIESComment: INTERPRETIVE INFORMATION: Cancer Antigen 27.29 The CA [...] in the same range as healthy individuals. ??Elevations may also be observed in patients with non malignant disease. Results of this test must always be interpreted in the context of morphologic and other relevant data, and should not be used alone for a diagnosis of malignancy. Methodology: Siemens Atellica IM BR 27.29 (BR) ??chemiluminescent immunoassay was used. Results obtained with different assay methods or kits cannot be used interchangeably. Performed By: [facility] [address] [place] [id number] Client Care Coordinator: Brendon Ruiz MD, PhD CLIA Number: [id number] Specimen (Source)Anatomical Location / LateralityCollection Method / Volume Collection TimeReceived TimeBloodVenous blood / UnknownVenipuncture / Unknown 07/13/2025 2:08 PM EDT07/13/2025 2:16 PM EDT Narrative Authorizing ProviderResult TypeResult StatusArtie Spencer BATTERY STACKER-[facility] BLOOD ORDERABLESFinal ResultPerforming OrganizationAddressCity/State/ZIP CodePhone Number [facility] [address] [place] [phone], * (ABNORMAL) Haptoglobin (07/13/2025 2:08 PM EDT)ComponentValueRef RangeTest MethodAnalysis TimePerformed AtPathologist LnxnjbblgXZGPHWKGLQH506(H)32 - 228 mg/dL07/14/2025 12:52 PM [facility]YSpecimen (Source)Anatomical Location / LateralityCollection Method / VolumeCollection TimeReceived TimeBloodVenous blood / UnknownVenipuncture / Hhnxpcu3807/13/2025 2:08 PM EDT07/13/2025 2:16 PM EDT Narrative Authorizing ProviderResult TypeResult StatusDelisa Perkins BATTERY STACKER-[facility] BLOOD ORDERABLESFinal ResultPerforming OrganizationAddressCity/State/ZIP CodePhone Number [facility] [address] [place] [address], [place] [phone] * UT AN ELECTIVE ENDOTRACHEAL AIRWAY (07/13/2025 7:41 AM EDT) Narrative Elder Mccabe SRNA - 07/13/2025 7:41 AM EDT STEPH Ashley 07/13/2025 11:22 AM Airway Patient location during procedure: OR Urgency: Elective Date/Time: 07/13/2025 7:41 AM Airway not difficult IV In Situ: Peripheral General Information and Staff Service Provider: Nohelia Muse MD PARTS ROOM ASSOCIATE: Catrachita Silva APRN-DAYANA Student: STEPH Ashley Placed by: ??STEPH Ashley Patient Identified, IV Checked, Risks and Benefits Discussed, Surgical Consent, Monitors and Equipment Checked, Pre-op Evaluation and Timeout Performed Fire Risk Assessment Score: 0 Consent for Emergent Airway (if performed for an anesthetic, see related documentation for consents) Risks and benefits: risks, benefits and alternatives were discussed Indications and Patient Condition Sedation level: Deep Preoxygenated: yesPatient position: Supine Mask difficulty assessment: Vent By Mask Indications for airway management: Anesthesia Complications: No Complicating Factors: No Final Airway Details Final airway type: ETT Endotracheal airway: Cuffed and ETT - Single Lumen Techniques used for successful ETT Placement: With Stylet, Video Laryngoscopy and Pitt Cormack-Lehane Classification: Grade I Adjuncts used in placement: Anterior Pressure/BURP Endotracheal tube insertion site: Oral Dentition Check Pre: See Pre-Evaluaton documentation Post Intubation Trauma? No Visibility: ??Cords Clear Blade: Other (Pitt X3) Blade size: Pitt X3. Placement verified by: chest auscultation, capnography and symmetrical chest wall movement ETT size: 7.0 mm Cuff volume (mL): 5 Measured from: Lips Secured at (cm): 2 Number of attempts at approach: 1 Authorizing ProviderResult TypeResult StatusJason Kellen MDANESTHESIA ORDERABLES Edited Result - Final * (ABNORMAL) Iron and TIBC (07/13/2025 5:58 AM EDT)ComponentValueRef RangeTest MethodAnalysis TimePerformed AtPathologist PzwlcapieSNHB13(L)50 - 170 ug/dL 07/13/2025 1:53 PM [facility] YBQBWUZZEYSDSFHAPPLWT087107 - 336 mg/dL07/13/2025 1:53 PM [facility] LABORATORYIRON BINDING 235(L)250 - 425 ug/dL07/13/2025 1:53 PM [facility] IRON OSWXAWSJDD10(L)15 - 50 % BFZLJBZYMU58/29/2025 1:53 PM [facility]ORATORYSpecimen (Source)Anatomical Location / LateralityCollection Method / VolumeCollection TimeReceived TimeBloodVenous blood / Unknown Venipuncture / Zlongrg4607/13/2025 5:58 AM EDT07/13/2025 6:30 AM EDT Narrative Authorizing ProviderResult TypeResult StatusArtie Spencer BATTERY STACKER-CNPLAB BLOOD ORDERABLESFinal ResultPerforming OrganizationAddressCity/State/ZIP CodePhone Number [facility] [address] [place] [address], * Cancer antigen 15-3 (07/13/2025 5:58 AM EDT)ComponentValueRef RangeTest Method Analysis TimePerformed AtPathologist SignatureCA 15 327.6<=31.3 U/mL07/13/2025 2:44 PM [facility] LABORATORYComment: The method used for this test is Matheus Appetite+ DXI chemiluminescent immunoassay. Values obtained by different assay methods cannot be used interchangeably. Specimen (Source)Anatomical Location / LateralityCollection Method / Volume Collection TimeReceived TimeBloodVenous blood / UnknownVenipuncture / Unknown 07/13/2025 5:58 AM EDT07/13/2025 6:30 AM EDT Narrative Authorizing ProviderResult TypeResult StatusArtie Spencer BATTERY STACKER-CNPLAB BLOOD ORDERABLESFinal ResultPerforming OrganizationAddressCity/State/ZIP CodePhone Number [facility] [address] [place] [phone], * Protime & INR (07/13/2025 5:58 AM EDT) Only the most recent of2 resultswithin the time period is included. ComponentValueRef RangeTest MethodAnalysis TimePerformed AtPathologist Signature EIYVMJO14.19.8 - 13.2 sec07/13/2025 6:46 AM [facility] LABORATORYINR1.00.9 - 1. 6:46 AM [facility] LABORATORYSpecimen (Source)Anatomical Location / LateralityCollection Method / VolumeCollection TimeReceived TimeBloodVenous blood / UnknownVenipuncture / Vesbxgs4907/13/2025 5:58 AM EDT07/13/2025 6:30 AM EDT Narrative Authorizing ProviderResult TypeResult StatusGaesthela Romano MDLAB BLOOD ORDERABLESFinal ResultPerforming OrganizationAddressCity/State/ZIP CodePhone Number [facility] [address] [place] [address], * (ABNORMAL) CA 125 (07/13/2025 5:58 AM EDT)ComponentValueRef RangeTest Method Analysis TimePerformed AtPathologist SignatureCA 625947(H)<=35 U/mL07/13/2025 2:23 PM EDTTSELECT MEDICAL [facility] LABORATORYComment: The method used for this test is Via6 DXI chemiluminescent immunoassay. Values obtained by different assay methods cannot be used interchangeably. Specimen (Source)Anatomical Location / LateralityCollection Method / Volume Collection TimeReceived TimeBloodVenous blood / UnknownVenipuncture / Unknown 07/13/2025 5:58 AM EDT07/13/2025 6:30 AM EDT Narrative Authorizing ProviderResult TypeResult StatusArtie Spencer BATTERY STACKER-CNPLAB BLOOD ORDERABLESFinal ResultPerforming OrganizationAddressCity/State/ZIP CodePhone Number [facility] [address] [place] [address], * Folate (07/13/2025 5:58 AM EDT)ComponentValueRef RangeTest MethodAnalysis Time Performed AtPathologist SignatureFOLIC ACID7.9>5.8 ng/mL07/13/2025 2:14 PM EDT [facility]YSpecimen (Source)Anatomical Location / LateralityCollection Method / VolumeCollection TimeReceived TimeBloodVenous blood / UnknownVenipuncture / Idzearm6007/13/2025 5:58 AM EDT07/13/2025 6:30 AM EDT Narrative Authorizing ProviderResult TypeResult StatusArtie Spencer BATTERY STACKER-CNPLAB BLOOD ORDERABLESFinal ResultPerforming OrganizationAddressCity/State/ZIP CodePhone Number [facility] [address] [place] [address], [place] [phone] * Ferritin (07/13/2025 5:58 AM EDT)ComponentValueRef RangeTest MethodAnalysis TimePerformed AtPathologist VyrvvpmxyPMEACJJL44968 - 307 ng/mL07/13/2025 2:10 PM [facility]ORATORYSpecimen (Source)Anatomical Location / LateralityCollection Method / VolumeCollection TimeReceived TimeBloodVenous blood / UnknownVenipuncture / Iyljhja3607/13/2025 5:58 AM EDT07/13/2025 6:30 AM EDT Narrative Authorizing ProviderResult TypeResult StatusArtie Spencer BATTERY STACKER-CNPLAB BLOOD ORDERABLESFinal ResultPerforming OrganizationAddressCity/State/ZIP CodePhone Number [facility] [place] [address], * (ABNORMAL) Vitamin B12 (07/13/2025 5:58 AM EDT)ComponentValueRef RangeTest MethodAnalysis TimePerformed AtPathologist SignatureVITAMIN B121,015(H)180 - 914 pg/mL07/13/2025 2:15 PM [facility]YSpecimen (Source)Anatomical Location / LateralityCollection Method / VolumeCollection TimeReceived TimeBloodVenous blood / UnknownVenipuncture / Atmfcsc5207/13/2025 5:58 AM EDT07/13/2025 6:30 AM EDT Narrative Authorizing ProviderResult TypeResult StatusArtie Spencer BATTERY STACKER-CNPLAB BLOOD ORDERABLESFinal ResultPerforming OrganizationAddressCity/State/ZIP CodePhone Number [facility] [address] [place] [address], * ECG 12 lead (07/12/2025 9:44 PM EDT) Only the most recent of3 resultswithin the time period is included. Specimen (Source)Anatomical Location / LateralityCollection Method / Volume Collection TimeReceived Time07/12/2025 9:44 PM EDT Narrative TRACEMASTERVUE - 07/13/2025 8:24 AM EDT Authorizing ProviderResult TypeResult StatusMorgan Strenk PA-CECG ORDERABLES Final ResultPerforming OrganizationAddressCity/State/ZIP CodePhone Number TRACEMASTERVUE * APTT (07/12/2025 9:34 PM EDT) Only the most recent of2 resultswithin the time period is included. ComponentValueRef RangeTest MethodAnalysis TimePerformed AtPathologist Signature [id number] - 37 sec07/12/2025 11:12 PM EDTTSELECT [facility] Specimen (Source)Anatomical Location / LateralityCollection Method / Volume Collection TimeReceived TimeBloodVenous blood / UnknownVenipuncture / Unknown 07/12/2025 9:34 PM EDT07/12/2025 10:04 PM EDT Narrative Authorizing ProviderResult TypeResult StatusGabrellyn Romano MDLAB BLOOD ORDERABLESFinal ResultPerforming OrganizationAddressCity/State/ZIP CodePhone Number [facility] [address] [place] [address], * X-ray hip right 2-3 views with or without pelvis (07/12/2025 7:41 PM EDT) Anatomical RegionLateralityModalityLower Extremities, MSK, HipRightComputed RadiographySpecimen (Source)Anatomical Location / LateralityCollection Method / VolumeCollection TimeReceived Time07/12/2025 9:01 PM EDT Narrative 07/12/2025 9:05 PM EDT EXAM: XR HIP RT 2-3 VIEWS W OR WO PELVIS CLINICAL INFORMATION: pain. COMPARISON: 05/30/2025, CT of the abdomen and pelvis dated 07/02/2025, MRI of the pelvis dated 07/12/2025 FINDINGS: There is redemonstration of extensive osseous metastatic disease throughout the pelvis, hips, and visualized proximal femurs. This is again most prominently seen involving the proximal right femur. Anondisplaced fracture of the greater trochanter is again noted, as seen on prior CT and MRI. Old fractures of the inferior pubic rami are also again noted. No convincing radiographically evident new acute displaced fracture is identified. There is no convincing evidence for dislocation of the hip joint. There is partial visualization of a CONTENT STRATEGY LEAD shunt catheter with the tip terminating in [...] Laci Lima MD on 07/12/2025 9:05 PM Procedure Note Laci Lima MD - 07/12/2025 EXAM: XR HIP RT 2-3 VIEWS W OR WO PELVIS CLINICAL INFORMATION: pain. COMPARISON: 05/30/2025, CT of the abdomen and pelvis dated 07/02/2025, MRIof the pelvis dated 07/12/2025 FINDINGS: There is redemonstration of extensive osseous metastatic diseasethroughout the pelvis, hips, and visualized proximal femurs. This is againmost prominently seen involving the proximal right femur. A nondisplacedfracture of the greater trochanter is again noted, as seen on prior CT andMRI. Old fractures of the inferior pubic rami are also again noted. No convincing radiographically evident new acute displaced fracture is identified. Thereis no convincing evidence for dislocation of the hip joint. There ispartial visualization of a CONTENT STRATEGY LEAD shunt catheter with the tip terminating inthe right adnexa. IMPRESSION: 1. Redemonstration of extensive osseous metastatic disease throughout thepelvis, hips, and proximal femurs, again most prominently seen involvingthe proximal right femur. There is a nondisplaced presumed pathologicfracture of the right greater trochanter, as seen on MRI and CT. Oldfractures of the inferior pubic rami are also again noted. 2. No convincing radiographically evident new acute displaced fracture is identified. If there is persistent clinical concern for new fracture,further evaluation with MRI is recommended. Finalized by Laci Lima MD on 07/12/2025 9:05 PM Authorizing ProviderResult TypeResult StatusGabrielle A Notorgiacomo MDIM DIAGNOSTIC IMAGING ORDERABLESFinal Result * X-ray skull 1 to 3 views partial (07/12/2025 5:05 PM EDT)Anatomical Region LateralityModalityHead, NeuroN/AComputed RadiographySpecimen (Source) Anatomical Location / LateralityCollection Method / VolumeCollection Time Received Time07/12/2025 10:02 PM EDT Narrative 07/12/2025 10:04 PM EDT XR SKULL 1-3 VWS PARTIAL: 07/12/2025 PROVIDED HISTORY: * ??80 years old Female * ??Codman Hakim CONTENT STRATEGY LEAD Shunt, please focus on right sided shunt reservoir for setting COMPARISON: None. FINDINGS/IMPRESSION: 1. ??Ventriculostomy catheter, partially visualized with, Codman Hakim programmable shunt set to approximately 120. 2. ??Otherwise no acute osseous abnormality. Finalized by Doug Funes MD on 07/12/2025 10:04 PM Procedure Note Doug Funes MD - 07/12/2025 XR SKULL 1-3 VWS PARTIAL: 07/12/2025 PROVIDED HISTORY: * 80 years old Female * Codman Hakim CONTENT STRATEGY LEAD Shunt, please focus on right sided shunt reservoir forsetting COMPARISON: None. FINDINGS/IMPRESSION: 1. Ventriculostomy catheter, partially visualized with, Codman Hakimprogrammable shunt set to approximately 120. 2. Otherwise no acute osseous abnormality. Finalized by Doug Funes MD on 07/12/2025 10:04 PM Authorizing ProviderResult TypeResult StatusAntoinette Villagran BATTERY STACKER-CNPG DIAGNOSTIC IMAGING ORDERABLESFinal Result * MR pelvis with and without contrast (07/12/2025 11:12 AM EDT)Anatomical Region LateralityModalityBody, Body Covera, MSK Covera, PelvisN/AMagnetic Resonance Specimen (Source)Anatomical Location / LateralityCollection Method / Volume Collection TimeReceived Time07/12/2025 12:42 PM EDT Narrative 07/12/2025 12:50 PM EDT MR PELVIS W WO CONT HISTORY: pelvic fracture. Pain, injury TECHNIQUE: Multiplanar multisequence MR of the pelvis was performed prior to and following the uncomplicated administration of ProHance intravenous contrast. ?? COMPARISON: None. FINDINGS: Extensive bone marrow replacement, notable involvement right proximal femur [effectively entire femoral head, neck, intertrochanteric and subtrochanteric region. Pathologic fracture of the greater and lesser trochanters. Notable extensive bone marrow replacement involving left sacral ala. Less pronounced, extensive, involvement left intertrochanteric and subtrochanteric femur, other regions throughout the pelvis. Nondisplaced fracture of the right greater trochanter [series 7 image #14]. Asymmetric right gluteus medius and minimus muscular edema. Asymmetric Circumscribed unilocular cystic observation left ovary, 6.9 x 5 cm. Grossly unremarkable uterus. Small volume pelvic free fluid. Retroverted uterus. Grade 1 anterolisthesis L4 on L5, moderate thecal sac stenosis at L4-5. IMPRESSION: Extensive osseous lesions compatible with metastatic disease. Pathologic fracture of the right greater and lesser trochanters. Extent of involvement within left sacral ala and right right intertrochanteric regions further predispose to additional pathologic fractures. No additional transcortical fracture seen, at this time. Unilocular cystic structure left ovary, 6.9 cm. No nodularity or worrisome features. Favor serous cystadenoma. Finalized by Eddi Tapia MD on 07/12/2025 12:50 PM Procedure Note Eddi Tapia MD - 07/12/2025 MR PELVIS W WO CONT HISTORY: pelvic fracture. Pain, injury TECHNIQUE: Multiplanar multisequence MR of the pelvis was performed priorto and following the uncomplicated administration of ProHance intravenouscontrast. COMPARISON: None. FINDINGS: Extensive bone marrow replacement, notable involvement right proximalfemur [effectively entire femoral head, neck, intertrochanteric andsubtrochanteric region. Pathologic fracture of the greater and lessertrochanters. Notable extensive bone marrow replacement involving leftsacral ala. Less pronounced, extensive, involvement left intertrochanteric andsubtrochanteric femur, other regions throughout the pelvis. Nondisplaced fracture of the right greater trochanter [series 7 image#14]. Asymmetric right gluteus medius and minimus muscular edema. Asymmetric Circumscribed unilocular cystic observation left ovary, 6.9 x 5 cm.Grossly unremarkable uterus. Small volume pelvic free fluid. Retroverteduterus. Grade 1 anterolisthesis L4 on L5, moderate thecal sac stenosis at L4-5. IMPRESSION: Extensive osseous lesions compatible with metastatic disease. Pathologicfracture of the right greater and lesser trochanters. Extent ofinvolvement within left sacral ala and right right intertrochantericregions further predispose to additional pathologic fractures. Noadditional transcortical fracture seen, at this time. Unilocular cystic structure left ovary, 6.9 cm. No nodularity or worrisome features. Favor serous cystadenoma. Finalized by Eddi Tapia MD on 07/12/2025 12:50 PM Authorizing ProviderResult TypeResult StatusJaylan Gray BATTERY STACKER-CNPIMG MRI ORDERABLESFinal Result * Light Blue Top (07/11/2025 4:17 AM EDT) Only the most recent of6 resultswithin the time period is included. ComponentValueRef RangeTest MethodAnalysis TimePerformed AtPathologist Signature Extra TubeAuto Xkwaqpnb65/27/2025 6:04 AM EDTPROMEDCASA COL[facility] Specimen (Source)Anatomical Location / LateralityCollection Method / Volume Collection TimeReceived TimeBloodVenous blood / Cveovdd3507/11/2025 4:17 AM EDT 07/11/2025 5:29 AM EDT Narrative Authorizing ProviderResult TypeResult StatusMuolivia STANFORD BLOOD ORDERABLESFinal ResultPerforming OrganizationAddressCity/State/ZIP CodePhone Number [address] [place] [address], * X-ray abdomen ap 1 view (07/03/2025 2:42 PM EDT)Anatomical RegionLaterality ModalityBody, AbdomenN/AComputed RadiographySpecimen (Source)Anatomical Location / LateralityCollection Method / VolumeCollection TimeReceived Time 07/03/2025 2:45 PM EDT Narrative 07/03/2025 2:51 PM EDT Abdomen single view Clinical history:n/v ??abdominal pain Comparison: 10/17/2019 Findings: AP supine view of the abdomen. Ventricular shunt catheter tubing, tip in the right lower quadrant. Nonobstructive, nonspecific bowel gas pattern. Impression: Nonobstructive, nonspecific bowel gas pattern. Finalized by Sang Acevedo MD on 07/03/2025 2:51 PM Procedure Note Sang Acevedo MD - 07/03/2025 Abdomen single view Clinical history:n/v abdominal pain Comparison: 10/17/2019 Findings: AP supine view of the abdomen. Ventricular shunt catheter tubing, tip inthe right lower quadrant. Nonobstructive, nonspecific bowel gas pattern. Impression: Nonobstructive, nonspecific bowel gas pattern. Finalized by Sang Acevedo MD on 07/03/2025 2:51 PM Authorizing ProviderResult TypeResult StatusRachel Ragle BATTERY STACKER-CNPTULSA SPINE & [facility] DIAGNOSTIC IMAGING ORDERABLESFinal Result * Ultrasound pelvic with duplex (07/02/2025 1:26 PM EDT)Anatomical Region LateralityModalityBody, PelvisUltrasoundSpecimen (Source)Anatomical Location / LateralityCollection Method / VolumeCollection TimeReceived Time07/02/2025 1:40 PM EDT Narrative 07/02/2025 1:47 PM EDT CLINICAL INFORMATION: Evaluate for Ovarian Torsion. TECHNIQUE: [...] venous outflow structures of the ovaries with arterialand venous spectral waveforms obtained and reviewed in view of the clinical history of Evaluate for Ovarian Torsion . Duplex spectral Doppler document arterial and venous spectral waveforms documented within the majorarterial inflow and venous outflow of both ovaries. ??Arterial and venous Doppler duplex spectral waveforms were [...] free fluid in the cul-de-sac. IMPRESSION: * ??The patient could not tolerate transvaginal imaging which severely compromises the sensitivity examination. * ??There is a 9.2 cm cystic mass in the left adnexa however cannot be said with certainty whether this is ovarian in nature. Blood flow is documented along the periphery of this lesion, however, cannot be said with certainty whether it is flow within the ovarian tissue. Finalized by Johnathan Zheng MD on 07/02/2025 1:47 PM Procedure Note Johnathan Zheng MD - 07/02/2025 CLINICAL INFORMATION: Evaluate for Ovarian Torsion. TECHNIQUE: Real-time transabdominal sonographic evaluation of the pelvis wasperformed with villarreal scale and color flow imaging. The patient could nottolerate transvaginal imaging which severely compromises sensitivity theexamination. Real time villarreal scale, color flow imaging and duplex spectral Dopplerwaveform analysis evaluation was performed of the major arterial inflowand venous outflow structures of the ovaries with arterial and venousspectral waveforms obtained and reviewed in view of the clinical historyof Evaluate for Ovarian Torsion . Duplex spectral Doppler document arterial and venous spectral waveforms documented within the major arterial inflow and venous outflow of bothovaries. Arterial and venous Doppler duplex spectral waveforms wereevaluated. COMPARISON: Comparison made to a CT abdomen pelvis performed earlier in the day FINDINGS: There is partial visualization of a 9.2 x 8.1 x 8.7 cm partially cysticmass in the left adnexa, felt to represent the abnormality describedprevious CT examination. There is blood flow along the periphery of thislesion, however, it cannot be said with certainty whether the flow is inthe ovarian tissue. The right ovary was not visualized due to overlying bowel gas. There is no free fluid in the cul-de-sac. IMPRESSION: * The patient could not tolerate transvaginal imaging which severelycompromises the sensitivity examination. * There is a 9.2 cm cystic mass in the left adnexa however cannot be saidwith certainty whether this is ovarian in nature. Blood flow is documentedalong the periphery of this lesion, however, cannot be said with certaintywhether it is flow within the ovarian tissue. Finalized by Johnathan Zheng MD on 07/02/2025 1:47 PM Authorizing ProviderResult TypeResult StatusRachel Vicki Bustillo BATTERY STACKER-CNPIMG ORDERABLESFinal Result * (ABNORMAL) POCT Nursing Urine Macroscopic UA (07/02/2025 12:49 PM EDT) Only the most recent of2 resultswithin the time period is included. ComponentValueRef RangeTest MethodAnalysis TimePerformed AtPathologist Signature POC Urine Specific [place]>=1.030(A)1.010, 1.015, 1.020, 1.5768107/02/2025 12:39 [facility]rine Leukocyte EsteraseNegative Mevhgyvl40/18/2025 12:39 [facility] Urine QhatwxtNmwwckmrMwnoucts85/18/2025 12:39 PM [facility] Urine pH5.55.0, 6.0, 6.5, 7.0, 7.5, 8.0, 8.5, 5.5007/02/2025 12:39 PM [facility] Urine Kxtnynb23 mg/dL(A)Negative 07/02/2025 12:39 PM [facility]rine Glucose RxcpqkxqTssxmfxw98/18/2025 12:39 PM [facility] Urine Pnkrowa37 mg/dL(A)Jviaryzl51/18/2025 12:39 PM [facility] Urine Urobilinogen0.2 E.U./dL07/02/2025 12:[address] [facility] Urine BilirubinModerate(A)Negative 07/02/2025 12:39 PM [facility]rine Blood/HGB MhdbojlqVtighism86/18/2025 12:39 PM [facility] Specimen (Source)Anatomical Location / LateralityCollection Method / Volume Collection TimeReceived RsaaRqvzl97/18/2025 12:49 PM EDT07/02/2025 12:39 PM EDT Narrative Authorizing ProviderResult TypeResult StatusJonathon Chava Thibodeaux MDPOINT OF CARE TEST ORDERABLESFinal ResultPerforming OrganizationAddressCity/State/ZIP Code Phone Number [address] [place] [address], [place] * Extra Urine [place] (07/02/2025 12:40 PM EDT)ComponentValueRef RangeTest Method Analysis TimePerformed AtPathologist SignatureExtra TubeAuto Resulted 07/02/2025 2:02 PM [facility]TPT[facility] (Source) Anatomical Location / LateralityCollection Method / VolumeCollection Time Received TimeUrineUrine specimen collection, clean catch / Lwxbvlu7007/02/2025 12:40 PM EDT07/02/2025 12:59 PM EDT Narrative Authorizing ProviderResult TypeResult StatusRachel D Karchner BATTERY STACKER-CNPURINE ORDERABLESFinal ResultPerforming OrganizationAddressCity/State/ZIP CodePhone Number [address] [place] [address], [place] * Extra Urine (07/02/2025 12:40 PM EDT)ComponentValueRef RangeTest Method Analysis TimePerformed AtPathologist SignatureExtra TubeAuto Resulted 07/02/2025 2:02 PM EDTPTuscarawas [facility] (Source) Anatomical Location / LateralityCollection Method / VolumeCollection Time Received TimeUrineUrine specimen collection, clean catch / Wrqzqnk0207/02/2025 12:40 PM EDT07/02/2025 12:59 PM EDT Narrative Authorizing ProviderResult TypeResult StatusRachel D Karchner BATTERY STACKER-CNPURINE ORDERABLESFinal ResultPerforming OrganizationAddressCity/State/ZIP CodePhone Number [address] [place] [address], [place] * Troponin I, High Sensitivity 1 Hour (07/02/2025 12:10 PM EDT) Only the most recent of2 resultswithin the time period is included. ComponentValueRef RangeTest MethodAnalysis TimePerformed AtPathologist Signature TROPONIN I, HIGH PHLCYQSYRYI23<16 ng/L07/02/2025 12:42 PM EDTPT[facility] (Source)Anatomical Location / LateralityCollection Method / VolumeCollection TimeReceived TimeBloodVenous blood / Unknown Venipuncture / Gbfwwru3507/02/2025 12:10 PM EDT07/02/2025 12:14 PM EDT Narrative Authorizing ProviderResult TypeResult StatusRachesundar Vicki Bustillo BATTERY STACKER-CNPLAB BLOOD ORDERABLESFinal ResultPerforming OrganizationAddressCity/State/ZIP CodePhone Number [facility] [address] [place] [address], [place] * CT brain without contrast (07/02/2025 12:07 PM EDT)Anatomical RegionLaterality ModalityNeuro, Head, Head and Neck, Neuro CoveraN/AComputed TomographySpecimen (Source)Anatomical Location / LateralityCollection Method / VolumeCollection TimeReceived Time07/02/2025 12:11 PM EDT Narrative 07/02/2025 12:[address] HEAD WITHOUT IV CONTRAST CLINICAL STATEMENT: confusion, fall? signs of head injury Comparison study: 05/14/2025 TECHNIQUE: ??Axial views were obtained at 2.5 mm interval through the head without IV contrast. Automatic dose exposure reduction technique utilized. FINDINGS: ??The midline structures are not deviated. ??The ventricular system is prominent as previously documented and is unchanged in appearance without progressive ventriculomegaly. There is no intraventricular hemorrhage. There is no transependymal flow of CSF noted on the study.. The villarreal and white matter show normal attenuation. ??The posterior fossa is unremarkable. ? No features of raised intracranial pressure.No intracranial bleed. The IACs are unremarkable. ??The cerebellopontine angles are unremarkable. ??The temporomandibular joints show no abnormality. The osseous structures in the skull base and in the calvarium show no definite abnormality. Note ismade of a right-sided ventriculostomy with a right [...] Damien Golden MD on 07/02/2025 12:32 PM Procedure Note Damien Golden MD - 07/02/2025 CT HEAD WITHOUT IV CONTRAST CLINICAL STATEMENT: confusion, fall? signs of head injury Comparison study: 05/14/2025 TECHNIQUE: Axial views were obtained at 2.5 mm interval through the headwithout IV contrast. Automatic dose exposure reduction techniqueutilized. FINDINGS: The midline structures are not deviated. The ventricularsystem is prominent as previously documented and is unchanged inappearance without progressive ventriculomegaly. There is nointraventricular hemorrhage. There is no transependymal flow of CSF notedon the study.. The villarreal and white matter show normal attenuation. The posterior fossa isunremarkable. No features of raised intracranial pressure.Nointracranial bleed. The IACs are unremarkable. The cerebellopontine angles are unremarkable.The temporomandibular joints show no abnormality. The osseous structures in the skull base and in the calvarium show nodefinite abnormality. Note is made of a right-sided ventriculostomy with aright frontal approach that demonstrates no acute complication. Tip ofthis is located in the region of the right foramen of Monro. The orbits are lens replacements.. The paranasal sinuses are clear. The mastoid air cells are clear. IMPRESSION: Ventriculomegaly is stable with a right-sided frontal approachventriculostomy appearing stable. No acute intracranial pathology. All CT scans at this facility use dose modulation, iterativereconstruction, and/or weight based dosing when appropriate to reduceradiation dose to as low as reasonably achievable. Finalized by Damien Golden MD on 07/02/2025 12:32 PM Authorizing ProviderResult TypeResult StatusRachel Vicki Bustillo APRN-[facility]G CT ORDERABLESFinal Result * CT abdomen and pelvis with contrast (07/02/2025 11:50 AM EDT)Anatomical Region LateralityModalityBody, Abdomen, Body CoveraN/AComputed TomographySpecimen (Source)Anatomical Location / LateralityCollection Method / VolumeCollection TimeReceived Time07/02/2025 12:11 PM EDT Narrative 07/02/2025 12:22 PM EDT Study: CT abdomen and pelvis with contrast [...] thick clements and it is multilocular. Measures inaggregate approximately 9.4 x 6.5 cm it is increased significantly in size since previous study of 06/11/2025. [place]:No adenopathy Peritoneum:No free air or free fluid Retroperitoneum:No adenopathy Vessels: Atherosclerotic changes in the aorta no aneurysm Abdominal wall:CONTENT STRATEGY LEAD shunt tube Bones:Severe changes in the right hip possible prior intertrochanteric fracture which has not undergone fixation. IMPRESSION: * ??Large left adnexal cyst increased in size since previous examination pelvic ultrasound is recommended for further evaluation. * ??Severe changes in the right hip possible prior intertrochanteric fracture which has not undergone fixation. * ??Small to moderate-sized hiatal hernia stomach All CT scans at this facility use dose modulation, iterative reconstruction, and/or weight based dosing when appropriate to reduce radiation dose to as low as reasonably achievable. Finalized by Chester Parra MD on 07/02/2025 12:22 PM Procedure Note Chester Parra MD - 07/02/2025 Study: CT abdomen and pelvis with contrast History:Vomiting UTI Protocol:CT abdomen and pelvis with contrast Contrast 100 mL Omnipaque 300 COMPARISON:06/03/2025 Findings: Lung bases:Normal Liver:Normal Spleen:Normal Gallbladder:Normal Bile ducts:No dilatation Pancreas:Normal Adrenals:Normal Kidneys:Small cysts in the right kidney. Kidneys are otherwiseunremarkable Ureters:Normal Bladder:Normal Bowel:Small to moderate-sized hiatal hernia stomach unremarkable. Smallbowel is nondilated. Mild large bowel dilatation with stool in the colonwhich could indicate constipation. No appendicitis or diverticulitis. Reproductive organs:Uterus is unremarkable. There is a complex pelvic cystin the left adnexa contains calcifications possibly solid componentsomewhat thick clements and it is multilocular. Measures in aggregateapproximately 9.4 x 6.5 cm it is increased significantly in size sinceprevious study of 06/11/2025. [place]:No adenopathy Peritoneum:No free air or free fluid Retroperitoneum:No adenopathy Vessels: Atherosclerotic changes in the aorta no aneurysm Abdominal wall:CONTENT STRATEGY LEAD shunt tube Bones:Severe changes in the right hip possible prior intertrochantericfracture which has not undergone fixation. IMPRESSION: * Large left adnexal cyst increased in size since previous examinationpelvic ultrasound is recommended for further evaluation. * Severe changes in the right hip possible prior intertrochantericfracture which has not undergone fixation. * Small to moderate-sized hiatal hernia stomach All CT scans at this facility use dose modulation, iterativereconstruction, and/or weight based dosing when appropriate to reduceradiation dose to as low as reasonably achievable. Finalized by Chester Parra MD on 07/02/2025 12:22 PM Authorizing ProviderResult TypeResult StatusJazmine Bustillo APRN-CNPIMG CT ORDERABLESFinal Result * (ABNORMAL) Troponin I, High Sensitivity 0 Hour (07/02/2025 10:38 AM EDT) Only the most recent of2 resultswithin the time period is included. ComponentValueRef RangeTest MethodAnalysis TimePerformed AtPathologist Signature TROPONIN I, HIGH UXVYSCSFWNP48(H)<16 ng/L07/02/2025 11:25 AM EDTPROMEDICA MORNINGSIDE [facility]OSPITALpecimen (Source)Anatomical Location / Laterality Collection Method / VolumeCollection TimeReceived TimeBloodVenous blood / UnknownVenipuncture / Tsdheph2107/02/2025 10:38 AM EDT07/02/2025 10:48 AM EDT Narrative Authorizing ProviderResult TypeResult StatusRachesundar Bustillo BATTERY STACKER-CNPLAB BLOOD ORDERABLESFinal ResultPerforming OrganizationAddressCity/State/ZIP CodePhone Number [facility] [address] [place] [address], [place] * Lipase (07/02/2025 10:38 AM EDT)ComponentValueRef RangeTest MethodAnalysis TimePerformed AtPathologist GpdcfcvvzKRWUET4038 - 40 U/L07/02/2025 11:14 AM ED[facility] (Source)Anatomical Location / LateralityCollection Method / VolumeCollection TimeReceived TimeBloodVenous blood / UnknownVenipuncture / Ofsamwd5507/02/2025 10:38 AM EDT07/02/2025 10:48 AM EDT Narrative Authorizing ProviderResult TypeResult StatusRachel Vicki Bustillo BATTERY STACKER-CNPLAB BLOOD ORDERABLESFinal ResultPerforming OrganizationAddressCity/State/ZIP CodePhone Number [address] [place] [address], [place] * Multiple labs (06/26/2025 9:41 AM EDT) Narrative Authorizing ProviderResult TypeResult StatusNot In System Ref ProvPR IMAGING Final ResultPerforming OrganizationAddressCity/State/ZIP CodePhone Number MANUALLY TRANSCRIBED RESULTS * Platelet count (06/11/2025 5:17 AM EDT)ComponentValueRef RangeTest Method Analysis TimePerformed AtPathologist SignaturePlatelet [id number] - 450 X10E9/L06/11/2025 6:04 AM [facility]MPV8.77 - 12 fL06/11/2025 6:04 AM [facility] (Source) Anatomical Location / LateralityCollection Method / VolumeCollection Time Received TimeBloodVenous blood / UnknownVenipuncture / Ltnflis2106/11/2025 5:17 AM EDT06/11/2025 5:41 AM EDT Narrative Authorizing ProviderResult TypeResult StatusTaeler Aidan BATTERY STACKER-CNPLAB BLOOD ORDERABLESFinal ResultPerforming OrganizationAddressCity/State/ZIP CodePhone Number [address] [place] [address], [place] * (ABNORMAL) Hemoglobin (06/11/2025 5:17 AM EDT)ComponentValueRef RangeTest MethodAnalysis TimePerformed AtPathologist SvivwqjutQrqwluvwka13.3(L)11.7 - 15.5 g/dL06/11/2025 6:04 AM EDDay[facility] (Source)Anatomical Location / LateralityCollection Method / VolumeCollection TimeReceived TimeBloodVenous blood / UnknownVenipuncture / Mpkyqzb4706/11/2025 5:17 AM EDT06/11/2025 5:41 AM EDT Narrative Authorizing ProviderResult TypeResult StatusTaeler Aidan BATTERY STACKER-CNPLAB BLOOD ORDERABLESFinal ResultPerforming OrganizationAddressCity/State/ZIP CodePhone Number [address] [place] [address], [place] * [facility] TOP (06/11/2025 5:16 AM EDT)ComponentValueRef RangeTest MethodAnalysis TimePerformed AtPathologist SignatureExtra TubeAuto Nujrwasn89/28/2025 7:01 AM [facility] (Source)Anatomical Location / LateralityCollection Method / VolumeCollection TimeReceived TimeBloodVenous blood / Gyfjncn6306/11/2025 5:16 AM EDT06/11/2025 5:48 AM EDT Narrative Authorizing ProviderResult TypeResult StatusMuhamcordell Littlef MDLAB BLOOD ORDERABLESFinal ResultPerforming OrganizationAddressCity/State/ZIP CodePhone Number [address] [place] [address], [place] * CT abdomen and pelvis without contrast (06/11/2025 2:11 AM EDT)Anatomical RegionLateralityModalityBody, Abdomen, Body CoveraN/AComputed Tomography Specimen (Source)Anatomical Location / LateralityCollection Method / Volume Collection TimeReceived Time06/11/2025 2:18 AM EDT Narrative 06/11/2025 2:23 AM [...] trochanter and right lesser trochanter. IMPRESSION: * ??No acute abnormalities in the abdomen/pelvis. * ??Large left ovarian cystic lesion is unchanged. Small amount of free fluid in the pelvis presentas well. * ??Foci of air within the endometrial cavity, nonspecific. Correlate for recent endometrial biopsy/procedure. Differential consideration would include endometritis. * ??Extensive osseous metastatic disease has progressed since previous [...] Ryan Dominguez MD on 06/11/2025 2:23 AM Authorizing ProviderResult TypeResult StatusPrem PALACIOSG CT ORDERABLES Final Result * Thyroid profile includes TSH FT4 (06/11/2025 12:58 AM EDT)ComponentValueRef RangeTest MethodAnalysis TimePerformed AtPathologist SignatureFREE T41.590.61 - 1.60 ng/dL06/11/2025 1:48 AM [facility]ENTERTSH2.32 0.49 - 4.67 uIU/mL06/11/2025 1:48 AM [facility] Specimen (Source)Anatomical Location / LateralityCollection Method / Volume Collection TimeReceived TimeBloodVenous blood / UnknownVenipuncture / Unknown 06/11/2025 12:58 AM EDT06/11/2025 1:00 AM EDT Narrative Authorizing ProviderResult TypeResult StatusPrem [place] BLOOD ORDERABLESFinal ResultPerforming OrganizationAddressCity/State/ZIP CodePhone Number [facility] [address] [place] [address], * (ABNORMAL) B-type natriuretic peptide (06/11/2025 12:58 AM EDT)ComponentValue Ref RangeTest MethodAnalysis TimePerformed AtPathologist ZenfojubdYOR559(H) <=100 pg/mL06/11/2025 1:35 AM TPCRYSTAL CLINIC ORTHOPEDIC CENTERpecimen (Source)Anatomical Location / LateralityCollection Method / VolumeCollection TimeReceived TimeBloodVenous blood / UnknownVenipuncture / Emgliuy9806/11/2025 12:58 AM EDT06/11/2025 1:00 AM EDT Narrative Authorizing ProviderResult TypeResult StatusPatrick Jorge [place] BLOOD ORDERABLESFinal ResultPerforming OrganizationAddressCity/State/ZIP CodePhone Number [address] [address], * CK Total (06/11/2025 12:58 AM EDT)ComponentValueRef RangeTest MethodAnalysis TimePerformed AtPathologist UbivafrnrNQZ9932 - 170 U/L06/11/2025 1:28 AM EDT [facility] (Source)Anatomical Location / LateralityCollection Method / VolumeCollection TimeReceived TimeBloodVenous blood / UnknownVenipuncture / Uasnzko8206/11/2025 12:58 AM EDT06/11/2025 1:00 AM EDT Narrative Authorizing ProviderResult TypeResult StatusPatrickaylin [place] BLOOD ORDERABLESFinal ResultPerforming OrganizationAddressCity/State/ZIP CodePhone Number [address] [address] from Last 3 Months Insurance Advance Directives TypeDate RecordedPatient RepresentativeExplanationDurable Power of Change Person 03/30/2025 9:23 AMDurable Power of Fvnyvaat94/7/2022 2:24 PMDNR Physician Order 10/21/2022 2:24 PMLiving Will01/30/2021 12:07 PMDurable Power of Attorney01/30/2021 12:07 PMLiving Will01/29/2021 6:19 AMAdvance Directive01/29/2021 6:18 AMDNR Physician Order11/03/2019 1:27 PM * Full Code (Latest Code Status on File) Date ActivatedDate InactivatedComments07/12/2025 2:37 PM07/18/2025 2:26 PM * Full Code Date ActivatedDate InactivatedComments07/10/2025 5:33 PM07/12/2025 1:26 PM * Full Code Date ActivatedDate InactivatedComments07/02/2025 6:12 PM07/05/2025 8:36 PM * Full Code Date ActivatedDate InactivatedComments07/02/2025 2:38 PM07/02/2025 5:45 PM * Full Code Date ActivatedDate InactivatedComments06/11/2025 4:30 AM06/13/2025 5:13 PM Care Teams Team MemberRelationshipSpecialtyStart DateEnd Date Jaylan rGay, BATTERY STACKER-ED EDUCATIONAL AIDE [address] [place] [address] PCP - GeneralNurse Practitioner05/30/25
--- OUTSIDE RECORDS SUMMARY | 2025-09-10 03:20 | XMS_ITS | Encounter Summary ---
Author Organization [facility] tem Address [facility] [place], [place]-[id number] 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 ([facility]) (Primary Dx); Hypertensive heart and chronic kidney disease with heart failure and stage 1 through stage 4 chronic kidney disease, or unspecified chronic kidney disease (CMS-HCC); Nausea and vomiting, unspecified vomiting type Social History Tobacco UseTypesPacks/DayYears UsedDateSmoking Tobacco: NeverSmokeless Tobacco: NeverAlcohol UseStandard Drinks/WeekCommentsNo0 (1 standard drink = 0.6 oz pure alcohol)[facility] UtilitiesAnswerDate RecordedIn the past 12 months has the electric, gas, oil, or water [place] threatened to shut off services in your home?No 07/12/2025Social Connection and Isolation PanelAnswerDate RecordedIn a typical week, how many times do you talk on the phone with family, friends, or neighbors?Never10/28/2024How often do you get together with friends or relatives?More than three times a week10/28/2024How often do you attend jewish or yazidi services?More than 4 times per year10/28/2024o you belong to any clubs or organizations such as jewish groups, unions, fraternal or athletic roque ups, or school groups?Yes10/28/2024How often do you attend meetings of the clubs or organizations you belong to?More than 4 times per year10/28/2024re you , , , , never , or living with a partner? Never rcrksjr9310/28/2024UDIT-CAnswerDate RecordedQ1: How often do you have a [...] housing, medical care, and heating?Somewhat hard10/28/2024HQ-2AnswerDate RecordedTotal Mxskq925 [employer] [place] [employer] - Occupational Stress Questionnaire AnswerDate RecordedDo you feel stress - tense, restless, nervous, or anxious, or unable to sleep at night because yourmind is troubled all the time - these days? To some zwubjt7010/28/2024Exercise Vital SignAnswerDate RecordedOn average, how many days [...] of a household?No07/12/2025hildcareAnswer Date RecordedDo problems getting childcare center administrator make it difficult for you to work [...] InformationValueDate RecordedSex Assigned at BirthNot on fileLegal LlfOolwmj29/06/2015 11:55 AM EDT Gender FfjuqbjmJjwewb92/07/2020 8:20 PM EDTSexual HhpgmfqaubcQbvdttet46/21/2022 8:20 AM ESTdocumented as of this encounter Last Filed Vital Signs Vital SignReadingTime TakenCommentsBlood Xhfijmoq999/7609/05/2025 3:40 PM EDT Nusau666109/05/2025 3:40 PM DEFUugxrnrdrrc97.7 ??C (98.1 ??F)09/05/2025 3:40 PM EDTRespiratory Fpkk8374 3:40 PM EDTOxygen Heolvmmvnd45%09/05/2025 3:40 PM EDTInhaled Oxygen Concentration--Ikwoeb48.2 kg (148 lb 1.6 oz)09/05/2025 3:40 PM EDTHeight--Body Mass Index24.6508/22/2025 10:07 AM EDTdocumented in this encounter Progress Notes * Sacha Rosales, DO - 09/05/2025 3:40 PM EDT Patient Name: Cuca Dee Date of : 1945 Date of Service: 09/05/2025 Facility: [facility] [place] Type of Visit: Acute Visit Subjective Cuca Dee is a 80 y.o. female [facility] and regular visit. Nurses report abnormal labs for me. Patient has been sick to her stomach lately. She has been usingZofran for nausea and vomiting. Her appetite is down. She has not been even drink fluid restrictionamount. She denies dysuria, urgency or frequency. She has not had a fever. She has no other new problems to report. Allergies: Patient has no known allergies. Code Status: FULL CODE BP 126/76 Pulse 78 Temp 36.7 ??C (98.1 ??F) Resp 18 Wt 67.2 kg (148 lb 1.6 oz) LMP (LMP Unknown) SpO2 93% BMI 24.65 kg/m?? Physical Exam Vitals reviewed. Constitutional: General: She is awake. She is not in acute distress. Appearance: She is not ill-appearing. Comments: In bed in room. She is currently drinking without any vomiting HENT: Head: Normocephalic. Eyes: Extraocular Movements: Extraocular movements intact. Conjunctiva/sclera: Conjunctivae normal. Cardiovascular: Rate and Rhythm: Normal rate and regular rhythm. Heart sounds: Murmur heard. Pulmonary: Effort: Pulmonary effort is normal. No respiratory distress. Breath sounds: Normal breath sounds. No wheezing, rhonchi or rales. Comments: Wearing O2 Abdominal: General: Bowel sounds are normal. Palpations: Abdomen is soft. Tenderness: There is abdominal tenderness in the periumbilical area. There is no guarding or rebound. Musculoskeletal: Right lower leg: No edema. Left lower leg: No edema. Skin: Capillary Refill: Capillary refill takes less than 2 seconds. Neurological: Mental Status: She is alert. Psychiatric: Attention and Perception: Attention normal. Mood and Affect: Mood and affect normal. Speech: Speech normal. Behavior: Behavior normal. Behavior is cooperative. Thought Content: Thought content normal. Judgment: Judgment normal. Summary / Assessment / Plan 1. 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 Hypertensive heart and chronic kidney disease with heart failure and stage 1 through stage 4 chronic kidney disease, or unspecified chronic kidney disease ([facility]) 3. Nausea and vomiting, unspecified vomiting type Her GFR dropped from 29 to 13. She has been vomiting lately. She maybe a little dehydrated. Going to refer her back to Nephrology. She was seeing Nephrology in [place] so we will try to keep it closer. There is a general ledger bookkeeper in [place] we will try to get her into [facility] one. I asked her if she would want dialysis and she said no. We will still get consult to help manage advanced kidney disease. Will hold her furosemide for the next 2 doses occasionally his old dehydrated. Check UA. We will recheck a BNP and BMP in 1 week. Continue other orders as directed. ELECTRONICALLY SIGNED BY: Sacha Rosales DO Addendum: Her Calcium is high so will hold Ca+ supplement for now. Her path report from recent surgery showed metastatic breast cancer. Poor prognosis. documented in this encounter Plan of Treatment DateTypeDepartmentCare Team (Latest Contact Info)Ldozetfenmc47/31/2025 10:15 AM EDTOffice Visit [facility] - Medical Oncology [address] [place] [phone] Casimiro Leary MD [facility] [facility] [address] [place] [address] 09/17/2025 2:15 PM ESTOffice Visit [facility] [address] [facility] [place] [address] [place] [phone] Tawny Engel MD [address] [place] [address] Irina Brunner MD [address] [place], [place] [phone] 10/03/2025 1:45 PM ESTOffice Visit [facility]/Tra[facility] Adult Re[facility] [address] [place] [phone] Ra Marinelli MD [address] [place] [address] documented as of this encounter Goals GoalPatient Goal TypeAssociated ProblemsRecent ProgressPatient-Stated?Author SNF Discharge Bethany Austin RN Note: Patient would only like to discharge to [facility], if not patient would like to return home. 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 ([facility])- Primary Hypertensive heart and chronic kidney disease with heart failure and stage 1 through stage 4 chronic kidney disease, or unspecified chronic kidney disease ([facility]) Nausea and vomiting, unspecified vomiting type documented in this encounter Additional Health Concerns AssessmentNoted TimePHQ-9 Depression Total Score: 2:24 PM EDTA Body Mass Index follow-up plan has been documented for the iuahwqb5304/04/2025 3:37 PM EDTdocumented as of this encounter Care Teams Team MemberRelationshipSpecialtyStart DateEnd Date Jaylan Gray, VEST MAKER-ENVIRONMENTAL SAMPLER [address] [place] [address] PCP - GeneralNurse Practitioner05/30/25documented as of this encounter
--- OUTSIDE RECORDS SUMMARY | 2025-09-10 03:20 | XMS_ITS | Encounter Summary ---
Author Organization [employer] tem Address [facility] [place]-[id number] [address] [place] [address] Care Team Providers Care Church Communications Administrator Name Role Phone Isaac Jaylan Cohen APRN-GAS TENDER Primary Care Provider + Encounter Details DateTypeDepartmentCare Team (Latest Contact Info)Ofslhqxtwhm84/17/2025Travel Social History Tobacco UseTypesPacks/DayYears UsedDateSmoking Tobacco: NeverSmokeless Tobacco: NeverAlcohol UseStandard Drinks/WeekCommentsNo0 (1 standard drink = 0.6 oz pure alcohol)[facility] UtilitiesAnswerDate RecordedIn the past 12 months has the electric, gas, oil, or water [employer] threatened to shut off services in your home?No 07/12/2025Social Connection and Isolation PanelAnswerDate RecordedIn a typical week, how many times do you talk on the phone with family, friends, or neighbors?Never10/28/2024How often do you get together with friends or relatives?More than three times a week10/28/2024How often do you attend hindu or yarsanism services?More than 4 times per year10/28/2024o you belong to any clubs or organizations such as hindu groups, unions, fraternal or athletic roque ups, or school groups?Yes10/28/2024How often do you attend meetings of the clubs or organizations you belong to?More than 4 times per year10/28/2024re you , , , , never , or living with a partner? Never pqepsuw2310/28/2024UDIT-CAnswerDate RecordedQ1: How often do you have a [...] housing, medical care, and heating?Somewhat hard10/28/2024HQ-2AnswerDate RecordedTotal Gcsuh420 [facility] [place] [facility] Occupational Health - Occupational Stress Questionnaire AnswerDate RecordedDo you feel stress - tense, restless, nervous, or anxious, or unable to sleep at night because yourmind is troubled all the time - these days? To some abixqp1510/28/2024Exercise Vital SignAnswerDate RecordedOn average, how many days [...] of a household?No07/12/2025hildcareAnswer Date RecordedDo problems getting early childhood educator aide make it difficult for you to work [...] InformationValueDate RecordedSex Assigned at BirthNot on fileLegal DosLjczvj03/06/2015 11:55 AM EDT Gender BpznqifbAiablc70/07/2020 8:20 PM EDTSexual YdygmbsfezdSnvvtwte35/21/2022 8:20 AM ESTdocumented as of this encounter Plan of Treatment DateTypeDepartmentCare Team (Latest Contact Info)Jtjqrgrxrmk90/31/2025 10:15 AM EDTOffice Visit [facility] - Medical Oncology [address] [place] [phone] Casimiro Leary MD [address] [facility] [address] [place], [place] [phone] 09/17/2025 2:15 PM ESTOffice Visit [facility] [address] [place] [phone] Tawny Engel MD [address] [place], [place] [phone] Irina Brunner MD [address] [place] [address] 10/03/2025 1:45 PM ESTOffice Visit [facility] [address] [place] [phone] Ra Marinelli MD [address] [place] [address] documented as of this encounter Goals GoalPatient Goal TypeAssociated ProblemsRecent ProgressPatient-Stated?Author SNF Discharge Bethany Austin, RN Note: Patient would only like to discharge to [facility], if not patient would like to return home. documented as of this encounter Visit Diagnoses Not on filedocumented in this encounter Additional Health Concerns AssessmentNoted TimePHQ-9 Depression Total Score: 2:24 PM EDTA Body Mass Index follow-up plan has been documented for the utpqqxv2504/04/2025 3:37 PM EDTdocumented as of this encounter Care Teams Team MemberRelationshipSpecialtyStart DateEnd Date Jaylan Gray, BEAM DOFFER-GAS TENDER [address] [place] [address] PCP - GeneralNurse Practitioner05/30/25documented as of this encounter
--- OUTSIDE RECORDS SUMMARY | 2025-09-10 03:20 | XMS_ITS ---
Author Organization [employer] tem Address [id number] [address] 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 Primary Care Provider + Active Problems ProblemNoted DateDiagnosed DateClosed nondisplaced fracture of lesser trochanter of right femur with delayed eecsojz3108/26/2025Hypertension associated with stage 4 chronic kidney disease due to type 2 diabetes sumiryqk33/12/2025Pathological fracture, hip, unspecified, subsequent encounter for fracture with routine nzimwgu6808/12/2025Lesion of left femur08/01/2025Pelvic kvvxnyty93/29/2025 Pathological fracture of hip07/12/2025Pain of right hip07/10/2025dnexal mass 07/03/2025 Overview (07/03/2025): Left Generalized wzcosggl50/18/2025Intractable nausea and hkdfmtej07/18/2025UTI (urinary tract infection)06/11/2025losed fracture of right hip05/14/2025 Pathological fracture of right femur due to neoplastic disease with routine jjctzeb0305/14/2025ute respiratory failure with diwvrda9105/13/2025Hypoxia 03/16/20258940Hzexkj48/02/2025trial fibrillation with RVR01/22/2025Elevated eszmwhqo98/26/2024cute zqaksnum45/13/2024Type 2 diabetes mellitus with hypoglycemia without coma08/23/2024OVID-19 virus jqpaorbyz14/28/2024Weakness 06/14/2024Lactic ukacgtay67/31/2024Iron deficiency vfzrgd9306/14/2024 Xqtyekgmuynlzc90/31/2024Staphylococcus aureus bacteremia with afcrjy4906/13/2024 Generalized muscle vbeblskf71/29/2024Limitation of activities due to disability 04/12/2024Need for assistance with personal care04/12/2024isability affecting daily jxxyni4004/12/2024ifficulty in walking, not elsewhere dibwyyuowh37/28/2024 Insomnia, xleyiszjztc24/28/2024MRSA (methicillin resistant Staphylococcus aureus)04/11/2024Obesity, bfdilajqhyl48/28/2024Unspecified osteoarthritis, unspecified site04/11/2024Unspecified Escherichia coli (E. coli) as the cause of diseases classified vhfoqqhsm34/28/2024Metastasis to bone03/09/2024S/p TAVR (transcatheter aortic valve replacement), eeylnlpkjybwt46/12/2023Nonrheumatic aortic valve eolprdgf83/03/2023Hypertensive heart and chronic kidney disease with heart failure and stage 1 through stage 4 chronic kidney disease, or unspecified chronic kidney owgzmpa2004/02/2023epression, tkjyzackehn80/16/2023 Primary generalized (osteo)rlxgrywlj13/16/2023Type 2 diabetes mellitus with diabetic chronic kidney hbtjsjm8703/30/2023losed nondisplaced fracture of left pubis with routine brtsovq9803/28/2023cute kidney injury superimposed on CKD 03/28/2023Malignant neoplasm of upper-outer quadrant of right breast in female, estrogen receptor perversc77/04/2023Tremors of nervous hzddeb6801/13/2023 03/25/2023hronic diastolic congestive heart hjkbjhy0010/05/2022History of non-ST elevation myocardial infarction (NSTEMI)10/05/2022History of uwrcndwcm62/21/2022 Elevated d-dimer10/05/2022tage 3b chronic kidney dbecddi8210/05/2022pinal stenosis of lumbar region with neurogenic qdhfihjfzqoh09/31/2022 Overview (07/15/2022): Added automatically from request for surgery [id number] Acute cystitis without xrnotghak64/12/2022Coronary artery disease involving [place] coronary artery of [place] heart without angina uldsvubg91/30/2021 Essential (primary) irstttxssmzx54/30/2021Other abnormalities of gait and nexhtusl01/28/2021Chronic obstructive pulmonary njxfyrr4603/20/2021Type 2 diabetes mellitus without eydxwxztdffs82/06/2021Edema of lower soicjkufx05/26/2020 Constipation, keamhnpszuq96/26/2020Unspecified asthma, eiwmmdpldcsog10/26/2020 Murmur, fcnlgkd9203/26/2020Left bundle branch block03/26/2020Mixed diabetic hyperlipidemia associated with type 2 diabetes /27/2020GI bleed 10/17/2019Obstructive sleep apnea dorlzigl13/07/2019Cerebral ventriculomegaly 09/21/2019Wears tviygrls43/07/2019Urinary tract infectious qgqlgfm0909/21/2019 Normal pressure abuidigeavbbg67/22/2019Moderate episode of recurrent major depressive poymtsjv52/02/2019Lumbar pygyjelnuef64/31/2019Primary osteoarthritis of both knees10/26/2018Disc displacement, hdevxg0206/27/2018 Overview (06/27/2018): Added automatically from request for surgery [id number] Lumbar back pain with radiculopathy affecting left lower dfhcrojau90/16/2018 Overview (05/30/2018): Exacerbation, Chronic Anemia, chronic ofvauwy7709/07/2017GERD without /11/2017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 dybefair87/11/2017PVD (peripheral vascular disease) 05/25/2017 Current Treatment and Therapy Plans No current plan information found. Other Current Plans Adult oncology/infusion center flush orders* Plan Start Date:03/12/2025 Plan Provider:Delgado Leahy MD Linked Problems MRSA (methicillin resistant Staphylococcus aureus) Treatment Medications No medications scheduled. DAPTOmycin (CUBICIN) IV* Plan Start Date:03/12/2025 Plan Provider:Delgado Leahy MD Linked Problems Staphylococcus aureus bacter emia with sepsis ([facility])MRSA (methicillin resistant Staphylococcus aureus) Treatment Medications No medications scheduled. Past Treatment and Therapy Plans No past plan information found. Lifetime Dose Tracking * ChemicalLifetime DoseAutomatic EntryManual SzhkmCxdglixyfss873.27 mGy41.07 mGy 181.2 mGy Resolved Problems ProblemNoted DateDiagnosed DateResolved DateAltered mental status, unspecified altered mental status type/5Acute respiratory failure with hypoxia and qrlujrncoes90/28/202403/08/2025Pneumonia, unspecified organism /ortic eecujjra97/08/2025Severe aortic valve nkcygwhe25/NSTEMI (non-ST elevated myocardial infarction)//08/20250139Xuehwktnx15/07/201901/ssential wtticjnynsnd34Essential ijujvuashizd19 Rqasvwhuv34Urinary incontinence with continuous leakage Current moderate episode of major depressive disorder Weakness of both lower aeosgxfwpqc03
--- OUTSIDE RECORDS SUMMARY | 2025-09-10 03:21 | XMS_ITS | CCD ---
Author Organization [facility] Care Team Providers Care Environmental Compliance Inspector Name Role Phone Michael Duarte Primary Care [...] CasiMichael stallworth Primary Care Provider Unavaildeshawn Stinson BRUSH WORKER - SEWER CONNECTOR, Pam De La Rosa Primary Care Prov [...] Referring Unavailable MICHAEL DUARTE Primary Care Unavailable FLIP JHA Referring Unavailable MICHAEL DUARTE Primary Care Unavailable JEREMIAH, AMEER Referring Unavailable MICHAEL DUARTE Primary Care Unavailable JEREMIAH, AMEER Admitting Unavailable JEREMIAH, AMEER Attending Unavailable NING CALDERA Consulting Unavailable MICHAEL DUARTE Primary Care Unavailable CHARMAINE BLAND Consulting Unavailable MARITZA MIDDLETON Attending Unavailable MARITZA MIDDLETON Admitting Unavailable Stinson BRUSH WORKER-SEWER CONNECTOR, Pam De La Rosa Primary Care Provid er Stinson BRUSH WORKER-SEWER CONNECTOR, Pam J Primary Care Provid er Stinson BRUSH WORKER-SEWER CONNECTOR, Pam J Primary Care Provid er Al Bessie RAMIREZ, Kendall Unavailable UnavailSarai Allred Attending Unavailable Al Bessie, Kendall Attending Unavailable Al Bessie, Kendall Referring Unavailable Al Bessie, Kendall Attending Unavailable Stinson BRUSH WORKER-SEWER CONNECTOR, Pam J Primary Care Provid er Bhavik La MD, Kendall Unavailable Unavailabl e Stinson BRUSH WORKER-SEWER CONNECTOR, Pam Estrella Primary Care Provid er Stinson BRUSH WORKER-SEWER CONNECTOR, Pam J Primary Care Provid er Isaac BRUSH WORKER-SEWER CONNECTOR, Vj Cohen Primary Care Provider Unallocated , Noms Provider Primary Care Provi michele PAM STINSON Attending Unavailable DEJA STINSONERIE J Referring Unavailable STINSON, PAM Estrella Primary Care Unavailable STINSONPAM NAM Attending Unavailable STINSONPAM NAM Referring Unavailable STINSON, PAM Estrella Primary Care Unavailable STINSONPAM NAM Attending Unavailable STINSONPAM NAM J Referring Unavailable STINSON, PAM J Primary Care Unavailable PAM STINSON Attending Unavailable STINSONPAM NAM J Referring Unavailable STINSON, PAM Estrella Primary Care Unavailable STINSONPAM NAM Attending Unavailable STINSONDEJAPAM J Referring Unavailable STINSON, PAM J Primary Care Unavailable VJ GRAY Attending Unavailable MICHAEL JOINER Referring Unavailable VJ GRAY Primary Care Unavailable Ra Maravilla DO Attending Provider [phone] Ra Maravilla Attending Unavailable Ra Maravilla Admitting Unavailable LEXX, FELIX Mendoza Referring Unavailable VJ GRAY Primary Care Unavailable LEXX, FELIX Mendoza Attending Unavailable FELIX HALLMAN Admitting Unavailable JOIE ECHAVARRIA Attending Unavailable JOIE ECHAVARRIA Referring Unavailable JOIE ECHAVARRIA Attending Unavailable JOIE ECHAVARRIA Referring Unavailable OVITT, VALE Attending Unavailable OVITT, VALE Referring Unavailable OVITT, VALE Referring Unavailable OVITT, VALE Referring Unavailable CLIFF VIVAR Attending Unavailable OVITT, VALE Attending Unavailable MARYCARMEN AZAR Admitting Unavailab NAYANA Aragon Referring Unavailable STINSON, PAM J Primary Care Unavailable [facility] Consulting Unavailable MARIA GUADALUPE CAGLE Attending Unavailable CHRISTA HENRY Consulting Unavailable DELGADO LEAHY Consulting Unavailable [facility]IOLOG[facility] Consulting Unavailable CHRISTINE RODRIGUEZ Referring Unavailable STINSON, PAM J Primary Care Unavailable NING HASSAN Referring Unavailable YUHAS, MICHAEL L Primary Care Unavailable YUHAS, MICHAEL L Referring Unavailable YUHAS, MICHAEL L Primary Care Unavailable KENNETH PRYOR Referring Unavailable YUHAS, MICHAEL L Primary Care Unavailable ANA TIDWELL Referring Unavailable YUHAS, MICHAEL L Primary Care Unavailable LEXX JHA Referring Unavailable STINSON, PAM J Primary Care Unavailable YUHAS, MICHAEL L [...] VJ D Primary Care Unavailable RA MARINELLI Referring Unavailable KROTZER, VJ D Primary Care Unavailable RA MARINELLI Attending Unavailable KROTZER, VJ D Referring Unavailable KROTZER, VJ D Primary Care Unavailable MARC RIVERO Referring Unavailable STINSON, PAM J Primary Care Unavailable STINSON, PAM J Primary Care Unavailable SUKHJINDER WILDE Attending Unavailable STINSON, PAM J Primary Care Unavailable VERONA PORRAS Attending Unavailable STINSON, PAM J Primary Care Unavailable HEATH THIBODEAUX Attending Unavailable RODRIGUEZ, CHRISTINE U Admitting [...] Unavailable MICHAEL JOINER Primary Care Unavailable HEATH THIBODEAUX Attending Unavailable MICHAEL JONIER Primary Care Unavailable KENNETH PRYOR Attending Unavailable MICHAEL JOINER Primary Care Unavailable ANA TIDWELL Attending Unavailable MICHAEL JOINER Primary Care Unavailable THAINA MARTINEZ Admitting Unavailable FELIX HALLMAN Attending Unavailable HANNAH CHRIS JR Consulting UnavailMICHAEL Fernandez Primary Care Unavailable GIOVANNY PENNY Attending Unavailable VJ GRAY Primary Care Unavailable SASHA SPICER Attending Unavailable VJ GRAY Primary Care Unavailable RADHA PRYOR Attending Unavailable VJ GRAY Primary Care Unavailable LESLICECILIOHAMID M Admitting Unavailable LESLIILDEFONSO Attending Unavailable VJ GRAY Primary Care Unavailable HEATH THIBODEAUX Attending Unavailable VJ GRAY Primary Care Unavailable RANDY ORNELAS Consulting Unavailable LESLI, MUHAMID M Admitting Unavailable LESLI, CECILIOHAMID M Attending Unavailable CASIMIRO MUÑOZ Referring Unavailable VJ GRAY Primary Care Unavailable Allergies Allergy ClassificationReported Allergen(s)Allergy TypeDate of OnsetReaction(s) Facility (1 source)86039,00Drug allergy (disorder)[id number] Medications Current Medications MedicationDrug Class(es)DatesSig (Normalized)Sig (Original)acetaminophen 500 mg oral tablet (20 sources)Start: 73-52-9122siyu 2 tablets by mouth every eight hours acetaminophen (TYLENOL EXTRA STRENGTH) 500 mg tablet Take 2 tablets (1,000 mg total) by mouth every8 (eight) hours. 07/18/2025 ActiveStart: 07-02-2025 End: 93-04-4731vcvi 1 tablet by mouth every four hours as needed for pain and headacheStart: 05-13-2025 End: 35-37-5415jbcy 1 tablet by mouth every four hours as needed for pain and fever and krvaqhmc243 mg, oral, Every 4 hours PRN, mild pain - pain scale 1-3, temperature greater than 38 C, headaches, Temperature greater than 38.3 C, Starting on Wed05/13/25 at 1445, Scheduling/ADT, [Warning: Total Acetaminophen not to exceed more than 4 grams (4000 mg) in 24 hours]Start: 58-03-1423jmph 650 mg by mouth every four hours as needed, then take 4000 mg by mouth every twenty- four hoursas mg, Oral, EVERY 4 HOURS PRN, Starting on Wed12/07/22 at 1618, Until Discontinued, Pain Mild (1-3), Fever, Fever >100.5 F (38 C) Maximum dose of acetaminophen is 4000 mg from all sources in 24 hours. Recovery(Cath) take 2 tablets by mouth every six hours as needed for painacetaminophen (TYLENOL) 500 mg tablet Take 2 tablets (1,000 mg total) by mouth every 6 (six) hours as needed for pain. Suspendedalbuterol 0.83 mg/ml inhalation solution (9 sources)beta2-Adrenergic AgonistStart: 50-10-2361vkwh 3 mL by inhalation every six hours as needed for wheezingalbuterol (PROVENTIL,VENTOLIN) 2.5 mg /3 mL (0.083 %) nebulizer solution Indications: Mild intermittent reactive airway disease with acute exacerbation , Pneumonia of both lower lobes due to infectiou s organism Inhale 3 mL (2.5 mg total) by nebulization every 6 (six) hours as needed for wheezing. 75 mL 2024 Activeamoxicillin 875 mg / clavulanate 125 mg oral tablet (2 sources)Penicillin-class AntibacterialStart: 08-14-2024 End: 72-84-4779hhgw 1 tablet by mouth onceamoxicillin-pot clavulanate (AUGMENTIN) 875-125 mg per tablet Take 1 tablet by mouth every 12 (twelve) hours for 5 days. 10 tablet 08/14/2024 08/19/2024 Activeaspirin 81 mg chewable tablet (20 sources)Platelet Aggregation Inhibitor, Nonsteroidal Anti-inflammatory Drug Start: 65-97-7905jzmu 1 tablet by mouth once dailyaspirin 81 MG chewable tablet Take 1 tablet by mouth daily 30 tablet 3 09/30/2022 Activetake 1 tablet by mouth in the morningaspirin 81 mg Take 1 tablet (81 mg total) by mouth in the morning. Activetake 1 tablet by mouth once dailyaspirin 81 MG tablet Take 81 mg by mouth daily. 0 Activeatorvastatin 10 mg oral tablet (20 sources)HMG-CoA Reductase InhibitorStart: 37-95-1291zlec 1 tablet by mouth at bedtimeatorvastatin (Lipitor) 10 MG tablet Take 10 mg by mouth at bedtime 02/23/2025 ActiveStart: 11-10-2024 End: 47-49-4393ekgg 1 tablet by mouth once dailyatorvastatin (LIPITOR) 40 mg tablet Indications: Mixed diabetic hyperlipidemia associated with type2 diabetes mellitus (CMS-HCC) Take 1 tablet (40 mg total) by mouth nightly. 90 tablet 1 11/28/2024 SuspendedStart: 66-13-7242asns 1 tablet by mouth in the morning atorvastatin (LIPITOR) 80 mg tablet Take 1 tablet (80 mg total) by mouth in the morning. 09/29/2022ctiveazithromycin 250 mg oral tablet (1 source)Macrolide AntimicrobialStart: 12-15-2023 End: 57-98-0271bbljnvlqzvgr (ZITHROMAX) 250 mg tablet Indications: Upper respiratory tract infection, unspecified type Take 2 tablets the first day, then 1 tablet daily for 4 days. 6 tablet 0 12/15/2023 12/19/2023 Active4 ml bevacizumab 25 mg/ml injection (1 source)Vascular Endothelial Growth Factor InhibitorStart: 44-45-3284Ckagcko 25 mg/mL intravenous solution Direct Patient Administration Only - Active OUComment on above:OUbisacodyl 5 mg delayed release oral tablet (1 source)Stimulant LaxativeStart: 19-95-8998rqakpubnb (DULCOLAX) EC tablet 10 mgblood-glucose meter misc (20 sources)Start: 03-65-9345fskou-glucose meter misc Indications: Controlled type 2 diabetes mellitus with diabetic nephropathy, without long-term current use of insulin ([facility] Monitor blood sugars four times daily and as needed 1 each 10/11/2020 ActiveStart: 77-57-8125cytmk-glucose meter misc Indications: Controlled type 2 diabetes mellitus with diabetic nephropathy, without long-term current use of insulin ([facility]) Monitor blood sugars four times daily and as needed 1 each 0 10/11/2020 ActivebusPIRone hydrochloride 5 mg oral tablet (20 sources)Start: 07-04-2025 End: 51-49-7503zepp 1 tablet by mouth three times dailybusPIRone (BUSPAR) 5 mg tablet Take 1 tablet (5 mg total) by mouth 3 (three) times a day. 07/05/2025 Activecalcium citrate 0.415 mg/mg / cholecalciferol 0.1 unt/mg oral powder (3 sources)Vitamin Dcalcium citrate-vitamin D3 500 mg-12.5 mcg /5 gram powder in packet Take by mouth. Activecefuroxime 250 mg oral tablet (8 sources)Cephalosporin Antibacterialtake 1 tablet by mouth once daily cefuroxime (Ceftin) 250 MG tablet Take 250 mg by mouth Daily Activecephalexin 500 mg oral capsule (3 sources)Cephalosporin AntibacterialStart: 01-10-2025 End: 02-09-6261slwe 1 capsule by mouth three times dailyCEPHalexin (KEFLEX) 500 mg capsule Take 1 capsule (500 mg total) by mouth 3 (three) times a day for7 days. 21 capsule 01/10/2025 01/17/2025 ActiveStart: 11-10-2024 End: 45-80-1541vwlc 1 capsule by mouth in the morning, then take 1 capsule by mouth at bedtimeCEPHalexin (KEFLEX) 500 mg capsule Take 1 capsule (500 mg total) by mouth in the morning and 1 capsule (500 mg total) before bedtime. Do all this for 30 days. 60 capsule 11/10/2024 12/10/2024 ActiveStart: 02-09-2024 End: 46-99-0602eprm 1 capsule by mouth in the morning, then take 1 capsule by mouth at bedtimeCEPHalexin (KEFLEX) 250 mg capsule Indications: Acute cystitis without hematuria Take 1 capsule (250 mg total) by mouth in the morning and 1 capsule (250 mg total) before bedtime. Do all this for 10 days. 20 capsule 0 02/09/2024 02/19/2024 Activecholecalciferol 0.05 mg oral tablet (20 sources)Vitamin DStart: 54-66-8529sgpz 1 tablet by mouth in the morning cholecalciferol, vitamin D3, 2,000 units tablet Take 1 tablet (2,000 Units total) by mouth in the morning. 07/19/2025 Activeciprofloxacin 500 mg oral tablet (1 source)Quinolone AntimicrobialStart: 11-12-2024 End: 66-01-0710ipcv 0.5 tablet by mouth in the morning, then take 0.5 tablet by mouth at bedtimeciprofloxacin HCl (CIPRO) 500 mg tablet Take 0.5 tablets (250 mg total) by mouth in the morning and0.5 tablets (250 mg total) before bedtime. Do all this for 7 days. 7 tablet 11/12/2024 11/19/2024 ActiveDEXCOM G7 MOLDING ASSOCIATE misc (13 sources)Start: 68-87-8077YUHMFC G7 MOLDING ASSOCIATE misc USE DIRECTED TO CONTINUOUSLY MONITOR BLOOD SUGAR 07/05/2024 ActiveDEXCOM G7 SENSOR device (20 sources)Start: 45-63-8824VBIXAP G7 SENSOR device CHANGE SENSOR EVERY 10 DAYS, E11.65 03/22/2024 Activedocusate sodium 100 mg oral capsule (18 sources)Start: 90-20-4446upvp 1 capsule by mouth in the morning, then take 1 capsule by mouth at bedtimedocusate sodium (COLACE) 100 mg capsule Take 1 capsule (100 mg total) by mouth in the morning and 1capsule (100 mg total) before bedtime. 07/18/2025 Activedoxycycline monohydrate 100 mg oral capsule (4 sources)Tetracycline-class DrugStart: 05-15-2025 End: 21-15-7489dbab 1 capsule by mouth in the morning, then take 1 capsule by mouth at bedtimedoxycycline (MONODOX) 100 mg capsule Take 1 capsule (100 mg total) by mouth in the morning and 1 capsule (100 mg total) before bedtime. Do all this for 5 days. 05/15/2025 05/20/2025 ActiveStart: 05-14-2025 End: 32-78-0943fyqd 100 mg by mouth twice qvyxb338 mg, oral, 2 times daily, First dose on Wed05/14/25 at 1115, For 5 days, Indication: Community-acquired pneumoniaStart: 2024 End: 80-46-9443sqbc 1 capsule by mouth in the morning, then take 1 capsule by mouth at bedtimedoxycycline (MONODOX) 100 mg capsule Take 1 capsule (100 mg total) by mouth in the morning and 1 capsule (100 mg total) before bedtime. Do all this for 5 days. 10 capsule 2024 06/21/2024 Discontinued (Therapy completed)0.4 ml enoxaparin sodium 100 mg/ml prefilled syringe (8 sources)Low Molecular Weight HeparinStart: 08-07-2025 End: 66-20-0205numxav 0.4 mL by subcutaneous injection in the morningenoxaparin (LOVENOX) 40 mg/0.4 mL syringe Inject 0.4 mL (40 mg total) under the skin in the morningfor 30 doses. 15 mL 08/07/2025 09/06/2025 ActiveStart: 07-03-2025 End: 31-08-867218 mg, subcutaneous, Daily, First dose on Wed07/03/25 at 0600, When Creatinine Clearance 30 mL/min or greater Look-alike/sound-alike medication - verify indication for use.ergocalciferol 1.25 mg oral capsule (18 sources)Provitamin D2 CompoundStart: 78-87-9594ablv 1 capsule by mouth every weekergocalciferol (DRISDOL) 1,250 mcg (50,000 unit) capsule Take 1 capsule (50,000 Units total) by mouth once a week. 07/20/2025 Activeferrous sulfate 325 mg oral tablet (20 sources)Start: 81-61-7254yzls 1 tablet by mouth once daily at breakfast ferrous sulfate 325 (65 FE) MG tablet Take 1 tablet (325 mg total) by mouth daily with breakfast. 07/18/2025 ActiveStart: 07-03-2025 End: 50-75-0700nvju 1 tablet by mouth in the morning, then take 1 tablet by mouth at mealtimeferrous sulfate 325 (65 FE) MG tablet Take 1 tablet (325 mg total) by mouth in the morning and 1 tablet (325 mg total) in the evening. Take with meals. 07/05/2025 SuspendedStart: 05-14-2025 End: 03-50-6701nqkj 325 mg by mouth once daily at ttpvozntq198 mg, oral, Daily with breakfast, First dose on Wed07/02/25 at 1815, Give ferrous sulfate 2 hours before or 4 hours after antacids.fluconazole 150 mg oral tablet (1 source)Azole AntifungalStart: 10-25-2024 End: 02-13-1092wkzm 1 tablet by mouth oncefluconazole (DIFLUCAN) 150 mg tablet Take 1 tablet (150 mg total) by mouth once for 1 dose. 1 tablet 10/25/2024 10/25/2024 Activefluticasone / salmeterol (9 sources)Corticosteroid, beta2-Adrenergic AgonistStart: 26-05-5305cmlc 1 puff(s) by inhalation in the morningfluticasone propion-salmeteroL (ADVAIR) 100- 50 mcg/dose DISKUS Inhale 1 puff in the morning and 1 puff before bedtime. 60 each 2024 Activefurosemide 20 mg oral tablet (20 sources)Loop DiureticStart: 01-10-2025 End: 74-13-3974neek 1 tablet by mouth once dailyfurosemide (LASIX) 20 mg tablet Take 1 tablet (20 mg total) by mouth daily. 05/16/2025 Activegabapentin 300 mg oral capsule (20 sources)Anti-epileptic AgentStart: 57-66-1697ipqs 1 capsule by mouth in the morninggabapentin (NEURONTIN) 300 mg capsule Indications: 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) Take 1 capsule (300 mg total) by mouth in the morning. 30 capsule 1 07/31/2025 ActiveStart: 05-14-2025 End: 05-56-5148gjvc 600 mg by mouth once yzhrh696 mg, oral, Nightly, First dose on Wed05/14/25 at 2200, Look-alike/sound-alike medication - verify indication for use.Start: 03-05-2024 End: 49-44-9404kkdb 1 capsule by mouth in the morninggabapentin (Neurontin) 300 MG capsule Take 300 mg by mouth in the morning and 300 mg in the evening. 03/05/2024 ActiveStart: 08-10-2023 End: 00-08-0395hfsp 1 capsule by mouth in the morning, then take 1 capsule by mouth at bedtimegabapentin (NEURONTIN) 300 mg capsule Indications: 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 mellitus ([facility]) Take 1 capsule (300 mg total) by mouth in the morning and 1 capsule (300 mg total) before bedtime. 180 capsule 1 12/15/2023 01/18/2025 Discontinued (Reorder) End: 02-17-1768cwef 2 capsules by mouth once dailygabapentin (NEURONTIN) 300 mg capsule Take 2 capsules (600 mg total) by mouth nightly. 07/02/2025 Discontinued take 1 capsule by mouth in the morninggabapentin (NEURONTIN) 100 MG capsule Take 100 mg by mouth in the morning and 100 mg in the evening. 0 Active hydroCHLOROthiazide 25 mg oral tablet (20 sources)Thiazide Diuretictake 1 tablet by mouth once daily hydroCHLOROthiazide (HYDRODiuril) 25 MG tablet Take 1 tablet by mouth Daily Activetake 2 capsules by mouth once dailyhydrochlorothiazide 12.5 mg Cap take 2 capsule (25MG) by oral route every day 25 MG - Active3 ml insulin aspart, human 100 unt/ml pen injector (20 sources)Insulin AnalogStart: 95-59-3352zekvhbu aspart FlexPen (NovoLOG) 100 UNIT/ML pen Inject under the skin 3 (three) times a day with meals 12/29/2024 Active End: 24-86-3318aqlkary aspart U-100 (NovoLOG) 100 unit/mL (3 mL) insulin pen 05/15/2025 Discontinued (Stop Taking at Discharge)Novolog 100 unit/mL Sub-Q inject by subcutaneous route as per insulin sliding scale protocol - Active insulin aspart (NOVOLOG) 100 UNIT/ML injection pen Inject into the skin 3 times daily (before meals). Takes 3 to 4 times daily based on glucose / sliding scale used 0 Active3 ml insulin detemir 100 unt/ml pen injector (20 sources)Insulin AnalogStart: 39-82-4974lydbvf 15 [IU] by subcutaneous injection at bedtimeinsulin detemir (Levemir) 100 UNIT/ML pen Inject 15 Units under the skin at bedtime 08/24/2024 ActiveStart: 06-56-0494uguxho 15 [IU] by subcutaneous injection once dailyinsulin detemir U-100 (LEVEMIR) 100 unit/mL (3 mL) insulin pen Inject 15 Units under the skin nightly. 15 mL 12 08/24/2024 ActiveStart: 74-66-0343wvatikj detemir U-100 (LEVEMIR) 100 unit/mL (3 mL) insulin pen 30 units at bedtime 04/05/2024 ActiveStart: 08-31-2023 End: 28-22-2619zdrpbnc detemir U-100 (LEVEMIR FLEXPEN) 100 unit/mL (3 mL) insulin pen Indications: Controlled type2 diabetes mellitus with diabetic nephropathy, without long-term current use of insulin [place] INJECT 30 UNITS UNDER THE SKIN NIGHTLY 30 mL 3 08/31/2023 03/02/2024 Discontinued (Therapy completed)Levemir 100 unit/mL Sub-Q inject by subcutaneous route as per insulin sliding scale protocol - Activeinsulin detemir (LEVEMIR) 100 UNIT/ML injection pen Inject 40 Units into the skin nightly. 0 Active3 ml insulin glargine 100 unt/ml pen injector (20 sources)Insulin AnalogStart: 07-03-2025 End: 76-60-8270jttjov 10 [IU] by subcutaneous injection once dailyinsulin glargine (LANTUS, SEMGLEE) 100 unit/mL (3 mL) insulin pen Inject 10 Units under the skin nightly. 15 mL 07/05/2025 ActiveStart: 08-58-9347bsrzvwz glargine (Lantus SoloStar) 100 UNIT/ML pen Inject under the skin 12/07/2024 ActiveStart: 82-59-5932lcvvflm glargine (LANTUS) injection vial 10 UnitsStart: 12-07-2022 End: 15-31-4639zwbtddy glargine (LANTUS) injection vial 20 Unitsletrozole 2.5 mg oral tablet (20 sources)Aromatase InhibitorStart: 01-25-2025 End: 01-11-2125mzik 1 tablet by mouth once dailyletrozole (FEMARA) 2.5 mg chemo tablet Take 1 tablet by mouth daily 90 tablet 3 01/25/2025 01/20/2026 Active Start: 03-18-2023 End: 51-07-2144rjfn 1 tablet by mouth once dailyletrozole (FEMARA) 2.5 mg chemo tablet Indications: Malignant neoplasm of upper-outer quadrant of right female breast, unspecified estrogen receptor status (CMS-HCC) TAKE 1 TABLET BY MOUTH EVERY DAY 90 tablet 3 01/04/2024 Activelidocaine 0.04 mg/mg medicated patch (20 sources)Antiarrhythmic, Amide Local AnestheticStart: 52-94-7033iuhin 1 dose transdermal route once dailylidocaine (SALONPAS) 4 % Place 1 patch on the skin daily. 30 patch 05/29/2025 Activelisinopril 5 mg oral tablet (15 sources)Angiotensin Converting Enzyme Inhibitortake 1 tablet by mouth once dailylisinopril 5 MG tablet Take 5 mg by mouth Daily Activeloratadine 10 mg oral tablet (19 sources)take 1 tablet by mouth at bedtimeloratadine (CLARITIN) 10 mg tablet Take 1 tablet (10 mg total) by mouth before bedtime. Activemagnesium oxide 400 mg oral tablet (20 sources)Start: 07-02-2025 End: 61-38-4376hnyu 1 tablet by mouth in the morningmagnesium oxide (MAGOX) 400 mg tablet Take 1 tablet (400 mg total) by mouth in the morning. 07/05/2025 ActiveStart: 02-24-2025 End: 74-05-4070arhw 400 mg by mouth once mg, oral, Daily, First dose on Wed05/14/25 at 1330metoprolol tartrate 25 mg oral tablet (20 sources)beta-Adrenergic BlockerStart: 96-55-0088wjap 0.5 tablet by mouth in the morning, then take 0.5 tablet by mouth at bedtimemetoprolol tartrate (LOPRESSOR) 25 mg tablet Take 0.5 tablets (12.5 mg total) by [facility] and 0.5 tablets (12.5 mg total) before bedtime. 60 tablet 11 11/10/2024 Active Start: 81-24-8811mjyr 1 tablet by mouth once dailymetoprolol succinate XL (TOPROL XL) 25 mg 24 hr tablet Indications: Essential hypertension Take 1 tablet (25 mg total) by mouth once daily. 90 tablet 2 06/05/2024 ActiveStart: 07-08-2023 End: 53-60-5604race 1 tablet by mouth once dailymetoprolol succinate XL (TOPROL XL) 25 mg 24 hr tablet Indications: Essential hypertension Take 1 tablet (25 mg total) by mouth once daily. 90 tablet 2 12/15/2023 Activetake 1 tablet by mouth in the morningmetoprolol tartrate (Lopressor) 50 MG tablet Take 1 tablet by mouth in the morning and 1 tablet before bedtime. Activetake 1 tablet by mouth twice dailymetoprolol tartrate 25 mg Tab take 1 tablet (25MG) by oral route 2 times every day 25 MG - Activetake 1 tablet by mouth twice dailymetoprolol (LOPRESSOR) 50 MG tablet Take 50 mg by mouth 2 times daily. 0 Activemineral oil 1000 mg/ml enema (10 sources)mineral oil (FLEET) enema Insert into the rectum once. Active mirtazapine 7.5 mg oral tablet (20 sources)Start: 05-14-2025 End: 22-50-6864viyb 7.5 mg by mouth once daily7.5 mg, oral, Nightly, First dose on 05/14/25 at 0145Start: 01-22-2025 End: 42-52-1979glqx 1 tablet by mouth once dailymirtazapine (REMERON) 7.5 mg tablet Indications: Insomnia, unspecified type Take 1 tablet (7.5 mg total) by mouth nightly. 90 tablet 1 07/31/2025 Activemupirocin 0.02 mg/mg topical ointment (1 source)RNA Synthetase Inhibitor AntibacterialStart: 88-30-8012dteittcuj (BACTROBAN) 2 % ointment Apply 1 Application topically in the morning and 1 Application before bedtime. 30 g 09/13/2024 Activenaproxen 500 mg oral tablet (2 sources)Nonsteroidal Anti-inflammatory Drugtake 1 tablet by mouth twice daily at mealtimenaproxen 500 mg Tab take 1 tablet (500MG) by oral route 2 times every day with food 500 MG - Activenystatin 100 unt/mg topical powder (20 sources)Polyene AntifungalStart: 18-67-3460fnthghcr (Mycostatin) 997171 UNIT/GM powder Apply 1 Application topically in the morning and 1 Application at noon and 1 Application in the evening and 1 Application before bedtime. 09/06/2024 ActiveStart: 09-06-2024 End: 72-24-2403mbuodtqd (MYCOSTATIN) powder Indications: Beverly infection of flexural skin Apply 1 Application topically in the morning and 1 Application at noon and 1 Application in the evening and 1 Application before bedtime. 60 g 1 09/06/2024 07/02/2025 Discontinuedoxybutynin chloride 5 mg oral tablet (14 sources)Cholinergic Muscarinic Antagonisttake 1 tablet by mouth once daily oxybutynin (Ditropan) 5 MG tablet Take 1 tablet by mouth Daily ActiveoxyCODONE hydrochloride 5 mg oral capsule (3 sources)Opioid AgonistStart: 08-06-2025 End: 25-05-1095cnji 1 capsule by mouth every six hours as needed for pain oxyCODONE (OXY-IR) 5 mg capsule Indications: Lesion of left femur Take 1 capsule (5 mg total) by mouth every 6 (six) hours as needed for pain for up to 7 days. Max Daily Amount: 20 mg 28 capsule 08/06/2025 08/13/2025 Activetake 1 capsule by mouth every four hours as needed for painoxyCODONE (OXY-IR) 5 mg capsule Take 1 capsule (5 mg total) by mouth every 4 (four) hours as neededfor pain. Max Daily Amount: 30 mg Activepantoprazole 40 mg delayed release oral tablet (20 sources)Proton Pump InhibitorStart: 69-74-8257digv 1 tablet by mouth once daily before breakfastpantoprazole (PROTONIX) 40 mg EC tablet Take 1 tablet (40 mg total) by mouth every morning before breakfast. 07/19/2025 ActiveStart: 03-05-2024 End: 00-56-9167zfns 1 tablet by mouth in the morningpantoprazole (PROTONIX) 40 mg EC tablet TAKE 1 TABLET (40 MG TOTAL) BY MOUTH IN THE MORNING 03/05/2024 11/24/2024 DiscontinuedStart: 08-10-2023 End: 44-14-5688eqgm 1 tablet by mouth in the morningpantoprazole (PROTONIX) 40 mg EC tablet Indications: GERD without esophagitis Take 1 tablet (40 mg total) by mouth in the morning. 90 tablet 2 12/15/2023 Activetake 40 mg by mouth before mealtimepantoprazole (ProtoNix) 40 MG packet Take 40 mg by mouth in the morning. Take before meals. Activepolyethylene glycol 3350 42735 mg powder for oral solution (20 sources)Osmotic LaxativeStart: 08-26-2680vnjcyopvlzgw glycol (GLYCOLAX) 17 gram packet Take 17 g by mouth in the morning and at bedtime. 07/18/2025 Active Start: 07-03-2025 End: 41-33-9796tzfhqgsjfqfi glycol (GLYCOLAX) 17 gram packet Take 17 g by mouth in the morning. 07/05/2025 SuspendedStart: 12-09-2022 End: 23-72-4125xsongeaelzyx glycol (GLYCOLAX) packet 17 gpravastatin sodium 40 mg oral tablet (2 sources)HMG-CoA Reductase Inhibitortake 1 tablet by mouth once daily pravastatin 40 mg Tab take 1 tablet (40MG) by oral route every day 40 MG - ActivepredniSONE 20 mg oral tablet (1 source)Start: 08-14-2024 End: 85-41-4322kiyv 2 tablets by mouth in the morningpredniSONE (DELTASONE) 20 mg tablet Take 2 tablets (40 mg total) by mouth in the morning for 3 days. 6 tablet 08/14/2024 08/17/2024 Activesennosides, nursing home 8.6 mg oral tablet (7 sources)Start: 08-06-2025 End: 67-77-5161sdcl 2 tablets by mouth once daily as needed for constipation senna (SENOKOT) 8.6 mg tablet Take 2 tablets (17.2 mg total) by mouth nightly as needed for constipation for up to 30 days. 08/06/2025 09/05/2025 Active sertraline 100 mg oral tablet (20 sources)Serotonin Reuptake InhibitorStart: 71-80-4677jodv 1 tablet by mouth in the morningsertraline (ZOLOFT) 100 mg tablet TAKE 1 TABLET(100 MG) BY MOUTH IN THE MORNING 90 tablet 09/04/2025 ActiveStart: 07-02-2025 End: 48-68-0355fgjz 100 mg by mouth once [id number] mg, oral, Daily, First dose on Wed07/02/25 at 1815, Look-alike/sound-alike medication - verify indication for use.Start: 05-14-2025 End: 19-39-8219fzrt 100 mg by mouth once mg, oral, Daily, First dose on Wed05/14/25 at 0900, Look-alike/sound-alike medication - verify indication for use.Start: 01-28-2025 End: 00-85-9474gdhp 1 tablet by mouth in the morningsertraline (ZOLOFT) 100 mg tablet Take 1 tablet (100 mg total) by mouth in the morning. 30 tablet 1 07/31/2025 09/04/2025 DiscontinuedStart: 06-05-2024 End: 21-51-0439nkvx 1 tablet by mouth in the morningsertraline (ZOLOFT) 100 mg tablet Indications: Major depressive disorder in partial remission, unspecified whether recurrent (CMS-HCC) Take 1 tablet (100 mg total) by mouth in the morning. 90 tablet 2 06/05/2024 11/24/2024 DiscontinuedStart: 08-10-2023 End: 55-66-3627xzcn 1 tablet by mouth in the morningsertraline (ZOLOFT) 100 mg tablet Indications: Major depressive disorder in partial remission, unspecified whether recurrent (CMS-HCC) Take 1 tablet (100 mg total) by mouth in the morning. 90 tablet 2 05/12/2024 06/02/2024 Discontinued (Reorder)Start: 64-82-5001zljt 100 mg by mouth once jiwtn348 mg, Oral, DAILY, First dose on Wed12/07/22 at 1645, Until Discontinued Completed/Discontinued Medications MedicationDrug Class(es)DatesSig (Normalized)Sig (Original)aluminum hydroxide 40 mg/ml / magnesium hydroxide 40 mg/ml / simethicone 4 mg/ml oral suspension (1 source)Start: 07-02-2025 End: 21-41-2196txZMGFIrki 2.5 mg oral tablet (20 sources)Dihydropyridine Calcium Channel BlockerStart: 11-11-2024 End: 38-10-7776xvzh 1 tablet by mouth in the morningamLODIPine (NORVASC) 2.5 mg tablet Take 1 tablet (2.5 mg total) by mouth in the morning. 30 tablet 1 01/12/2024 11/24/2024 Discontinuedtake 1 tablet by mouth once dailyamLODIPine (Norvasc) 5 MG tablet Take 5 mg by mouth Daily Activeblood-glucose sensor (DEXCOM G6 SENSOR) device (7 sources) End: 04-96-2063opndq-glucose sensor (DEXCOM G6 SENSOR) device by miscellaneous route. 03/08/2024 Discontinued (Therapy completed)blood-glucose sensor (DEXCOM G6 SENSOR) device by miscellaneous route. 0 Yjqfvh740 ml calcium gluconate 20 mg/ml injection (1 source)Start: 05-14-2025 End: 86-58-4207sext 4-4.3 mg intravenously every hour as needed2,000 mg, intravenous, at 50 mL/hr, Administer over 2 Hours, As needed, ionized calcium 4 to 4.3 mg/dL, Starting on Wed05/14/25 at 1011, IV Administration of calcium via a central or deep vein preferred. Avoid administration in small hand veins VESICANT (RED)calcium gluconate 2,000 mg in sodium chloride 0.9 % 100 mL IVPB (1 source)Start: 07-02-2025 End: 97-08-2888zuppask gluconate 3,000 mg in sodium chloride 0.9 % 100 mL IVPB (2 sources)Start: 07-02-2025 End: 64-88-1493Vhkrk: 05-14-2025 End: 67-14-8093vjvj 3.5-3.9 mg intravenously every hour as needed3,000 mg, intravenous, at 43.3 mL/hr, Administer over 3 Hours, As needed, ionized calcium 3.5 to 3.9 mg/dL, Starting on Wed05/14/25 at 1011, IV Administration of calcium via a central or deep vein preferred. Avoid administration in small hand veins VESICANT (RED)calcium gluconate 4,000 mg in sodium chloride 0.9 % 250 mL IVPB (2 sources)Start: 07-02-2025 End: 81-78-0444Qxcnk: 05-14-2025 End: 08-85-7224sjtq 3.4 mg intravenously every hour as needed4,000 mg, intravenous, at 72.5 mL/hr, Administer over 4 Hours, As needed, ionized calcium 3.4 mg/dLor less, Starting on Wed05/14/25 at 1011, IV administration of calcium via a central or deep vein is preferred. Avoid administration in small hand veins. VESICANT (RED)cefTRIAXone (ROCEPHIN) 1 g in lidocaine (XYLOCAINE) 10 mg/mL (1 %) IM injection (2 sources)Start: 02-09-2024 End: 42-73-4476pkdSEPWGiys (ROCEPHIN) 1 g in lidocaine (XYLOCAINE) 10 mg/mL (1 %) IM injectioncefTRIAXone (ROCEPHIN) 1,000 mg in sodium chloride 0.9 % 50 mL IVPB W/ADAPTER (1 source)Start: 07-02-2025 End: 09-37-3953vtfl 1000 mg intravenously every twenty-four hours1,000 mg, intravenous, at 100 mL/hr, Administer over 30 Minutes, Every 24 hours, First dose on Wed07/02/25 at 1815, For Vial-2-Bag: Attach bag and vial to adapter - Use immediately after activating; dissolve drug prior to administration., Indication: UTIclopidogrel 75 mg oral tablet (20 sources)P2Y12 Platelet InhibitorStart: 09-29-2022 End: 16-51-0895czuz 1 tablet by mouth in the morningclopidogreL (PLAVIX) 75 mg tablet Take 1 tablet (75 mg total) by mouth in the morning. 09/29/2022 Discontinuedcyclobenzaprine hydrochloride 10 mg oral tablet (3 sources)Muscle RelaxantStart: 01-11-2025 End: 81-77-8782yhllqaqsyqhpvnm (FLEXERIL) 10 mg tablet Take 1 tablet (10 mg total) by mouth 2 (two) times a day asneeded for muscle spasms for up to 3 doses. 3 tablet 01/11/2025 01/22/2025 Discontinued (Duplicate Listing)DAPTOmycin (CUBICIN) 500 mg in sodium chloride 0.9 % 50 mL IVPB (9 sources)Start: 04-03-2025 End: 97-50-7743680 mg, intravenous, at 120 mL/hr, Administer over 30 Minutes, Once, On Wed04/03/25 at 0800, For 1 dose, Pathogen: MRSA and unable to use vancomycin, Approved Indications: Bacteremia, Authorizing Service: ID consult has been placedStart: 03-30-2025 End: 02-85-6440581 mg, intravenous, at 120 mL/hr, Administer over 30 Minutes, Once, On Wed03/30/25 at 0800, For 1 dose, Pathogen: MRSA and unable to use vancomycin, Approved Indications: Bacteremia, Authorizing Service: ID consult has been placedStart: 03-28-2025 End: 97-74-5177231 mg, intravenous, at 120 mL/hr, Administer over 30 Minutes, Once, On Wed03/28/25 at 0815, For 1 dose, Pathogen: MRSA and unable to use vancomycin, Approved Indications: Bacteremia, Authorizing Service: ID consult has been placedStart: 03-26-2025 End: 82-07-8663819 mg, intravenous, at 120 mL/hr, Administer over 30 Minutes, Once, On Wed03/26/25 at 0930, For 1 dose, Pathogen: MRSA and unable to use vancomycin, Approved Indications: Bacteremia, Authorizing Service: ID consult has been placedStart: 03-24-2025 End: 94-84-6501127 mg, intravenous, at 120 mL/hr, Administer over 30 Minutes, Once, On Wed03/24/25 at 0800, For 1 dose, DOSE ADMINISTRATION TIME: 0800 on 03/24/2025, Pathogen: MRSA and unable to use vancomycin, Approved Indications: Bacteremia, Authorizing Service: ID consult has been placedStart: 03-22-2025 End: 69-51-4558017 mg, intravenous, at 120 mL/hr, Administer over 30 Minutes, Once, On Wed03/22/25 at 0830, For 1 dose, Pathogen: MRSA and unable to use vancomycin, Approved Indications: Bacteremia, Authorizing Service: ID consult has been placedStart: 03-20-2025 End: 34-95-6085803 mg, intravenous, at 120 mL/hr, Administer over 30 Minutes, Once, On Wed03/20/25 at 0815, For 1 dose, Pathogen: MRSA and unable to use vancomycin, Approved Indications: Bacteremia, Authorizing Service: ID consult has been placedStart: 03-14-2025 End: 07-15-4950191 mg, intravenous, at 120 mL/hr, Administer over 30 Minutes, Once, On Wed03/14/25 at 0830, For 1 dose, Pathogen: MRSA and unable to use vancomycin, Approved Indications: Bacteremia, Authorizing Service: ID consult has been placedStart: 03-12-2025 End: 58-91-8422101 mg, intravenous, at 120 mL/hr, Administer over 30 Minutes, Once, On Wed03/12/25 at 0800, For 1 dose, Pathogen: MRSA and unable to use vancomycin, Approved Indications: Bacteremia, Authorizing Service: ID consult has been placedDAPTOmycin in 0.9 % sod chlor 500 mg/50 mL piggyback (15 sources)Start: 02-23-2025 End: 29-71-1400JRWIXyhtrz in 0.9 % sod chlor 500 mg/50 mL piggyback Infuse 500 mg into a venous catheter every other day for 40 days. 1 mL 02/23/2025 04/04/2025 Discontinued (Therapy completed)Start: 02-23-2025 End: 63-12-6748JQHIFjvdct in 0.9 % sod chlor 500 mg/50 mL piggyback Infuse 500 mg into a venous catheter every other day for 40 days. 1 mL 02/23/2025 04/04/2025 ActiveDEXCOM G6 MOLDING ASSOCIATE misc (7 sources)Start: 05-06-2023 End: 48-33-4344PFWWVA G6 MOLDING ASSOCIATE misc 1 Device by drain unit route See Admin Instructions. 05/06/2023 03/08/2024 Discontinued (Therapy completed)Start: 40-51-5451TFSONT G6 MOLDING ASSOCIATE misc 1 Device by drain unit route See Admin Instructions. 0 05/06/2023 Activedextromethorphan hydrobromide 1.5 mg/ml / pyrilamine maleate 1.5 mg/ml oral solution (4 sources)Uncompetitive C-lchhnq-G-aspartate Receptor Antagonist, Sigma-1 AgonistStart: 12-15-2023 End: 68-85-3188uyil 5 mL by mouth every eight hours as needed for cough and congestionpyrilamine-dextromethorphan 7.5-7.5 mg/5 mL liquid Indications: Upper respiratory tract infection, unspecified type Take 5 mL by mouth every 8 (eight) hours as needed (cough and congestion). 100 mL 12/15/2023 03/02/2024 Discontinued (Therapy completed)docusate sodium 50 mg / sennosides, nursing home 8.6 mg oral tablet (2 sources)Start: 07-02-2025 End: 04-65-7397bgon 1 tablet by mouth every twelve hours as needed for constipationStart: 05-13-2025 End: 19-92-4126ouwm 1 tablet by mouth every twelve hours as needed for constipation1 tablet, oral, Every 12 hours PRN, constipation, Starting on 05/13/25 at 1445, Scheduling/ADTfolic acid 1 mg oral tablet (16 sources)Start: 02-25-2025 End: 70-20-9070zedz 1 tablet by mouth in the morningfolic acid (FOLVITE) 1 mg tablet Take 1 tablet (1 mg total) by mouth in the morning. 02/25/2025 05/13/2025 Discontinued (Therapy completed)glucagon (rdna) 1 mg injection (13 sources)Antihypoglycemic AgentStart: 07-02-2025 End: 77-57-7913Avtwe: 05-13-2025 End: mg, intramuscular, As needed, low blood sugar, blood glucose less than 70 mg/dL and unconscious or NPO without IV access., Starting on 05/13/25 at 1445, Scheduling/ADT, If conscious and not NPO,immediately follow with meal tray or high protein (7Grams) snack if tray not available. If NPO, initiate IV 5% Dextrose/Water at 100 mL/hr and contact prescriber for additional orders. If blood glucose is not greater than 70 mg/dL after initial treatment, repeat treatment.Start: 24-24-1848qsjsapqh (rDNA) injection 1 mgglucagon (GLUCAGEN DIAGNOSTIC KIT INJ) Inject as directed. Zrcctw774 ml glucose 50 mg/ml injection (11 sources)Start: 07-02-2025 End: 48-32-5533Qmpmc: 07-02-2025 End: 10-03-2706Qqfdz: 07-02-2025 End: 80-00-1305Lbrsp: 05-13-2025 End: g, oral, As needed, low blood sugar, blood glucose less than 70 mg/dL, Starting on Wed05/13/25 at 1445, Scheduling/ADT, If patient conscious and taking PO. If blood glucose is not greater than 70 mg/dL after initial treatment, repeat treatment.Start: 05-13-2025 End: mL, intravenous, As needed, low blood sugar, blood glucose less than 70 mg/dL and unconscious orNPO with IV access, Starting on Wed05/13/25 at 1445, Scheduling/ADT, Push over 1-3 minutes STAT. Ifconscious and not NPO, immediately follow with meal tray or high protein (7 grams) snack if tray not available. If NPO, initiate 5% dextrose in water at 100 mL/hr and contact prescriber for additional orders. If blood glucose is not greater than 70 mg/dL after initial treatment, repeat treatment. VESICANT (RED) Warning: HYPERTONIC solution.Start: 05-13-2025 End: 25-21-7514jydm 70 mg intravenously every atfj237 mL/hr, intravenous, Continuous PRN, blood glucose less than 70 mg/dL, Starting on Wed05/13/25 at 1445, Scheduling/ADT, Use immediately following dextrose 50% or glucagon treatment for patients who are unconscious or NPO. Contact prescriber for additional orders. If blood glucose is not greater than 70 mg/dL after initial treatment, repeat treatment.Start: 95-64-4427zeqs 25 mL intravenously every hour as idmoyo44 mL/hr, intravenous, Continuous PRN, When mainline IV needed., Starting on Wed03/23/25 at 1412, Match IVF to base solution of product being administered to ensure compatibility.Start: 74-82-7949mteb 25 mL intravenously every hour as glzlqy81 mL/hr, intravenous, Continuous PRN, When mainline IV needed., Starting on Wed03/22/25 at 0820, Match IVF to base solution of product being administered to ensure compatibility.Start: 40-32-0593zpbjgskx 10 % infusionStart: 59-84-8153weqsxfng bolus 10% 125 mLStart: 76-16-7326imfzlta chewable tablet 16 g12 hr guaiFENesin 600 mg extended release oral tablet (1 source)Start: 2024 End: 54-02-5117cnqw 1 tablet by mouth onceguaiFENesin (MUCINEX) 600 mg tablet extended release 12hr Take 1 tablet (600 mg total) by mouth every 12 (twelve) hours. 10 tablet 2024 06/21/2024 Discontinued (Therapy completed)1 ml heparin sodium, porcine 5000 unt/ml injection (1 source)Unfractionated Heparin, Anti-coagulantStart: 05-14-2025 End: ,000 Units, subcutaneous, Every 8 hours scheduled, First dose on Wed05/14/25 at 0600, Scheduling/ADT, Notify prescriber if INR greater than 1.9, hemoglobin less than 10 mg/dL, aPTT greater than 40 seconds, and/or platelet count less than 100,000/mm Look-alike/sound-alike medication - verify indication for use. Observe for bleeding.3 ml insulin lispro 100 unt/ml pen injector (20 sources)Insulin AnalogStart: 07-02-2025 End: 88-09-8654Kwloe: 07-02-2025 End: -10 Units, subcutaneous, 3 times daily with meals, First dose on Wed07/02/25 at 1815, Daytime hyperglycemia dosing. For blood glucose 151-200 mg/dL, give 2 units. For blood glucose 201-250 mg/dL, give 4 units. For blood glucose 251-300 mg/dL, give 6 units. For blood glucose 301-350 mg/dL, give 8 un its. For blood glucose 351-400 mg/dL, give 10 units. Give even if NPO or meals skipped. Do NOT givemore often then every 4 hours when NPO. Look-alike/sound-alike medication - verify indication for use. Prime with 2 units of insulin prior to administration. Prandial/supplemental Insulin. Pre-filledpens stable 28 days at room temperature. Insulin lispro should be administered within 15 minutes before or immediately after a meal.Start: 05-13-2025 End: 55-93-3545inuahp 400 mg by subcutaneous injection once daily, then inject 2 [IU] by subcutaneous injection 15minutes after mealtime2-8 Units, subcutaneous, Nightly, First dose on Wed05/13/25 at 2200, Scheduling/ADT, Bedtime hypergl ycemia dosing. For blood glucose 201-250 mg/dL, give 2 units. For blood glucose 251-300 mg/dL, give4 units. For blood glucose 301-350 mg/dL, give [...] 15 minutes before or immediately after a meal.Start: 05-13-2025 End: 13-34-8909agaezm 400 mg by subcutaneous injection three times [...] mg/dL, give 6 units. For blood glucose 301-350mg/dL, give 8 units. For blood glucose 351-400 mg/dL, give 10 units. Give even if NPO or meals skipped. Do NOT give more often then every 4 hours when NPO. Notify prescriber if blood glucose greater than 400 mg/dL. Look-alike/sound-alike medication - verify indication for use. Prime with 2 units ofinsulin prior to administration. Prandial/supplemental Insulin. Pre-filled pens stable 28 days at room temperature. Insulin lispro should be administered within 15 minutes before or immediately aftera meal.Start: 50-82-9281wdbjwzo lispro (HumaLOG) 100 unit/mL insulin pen Inject 2-10 Units under the skin 4 (four) times a day with meals and nightly. 151-200 mg/dL, give 2 units. 201-250 mg/dL, give 4 units. 251-300 mg/dL,give 6 units. 301-350 mg/dL, give 8 units 351-400 mg/dL, give 10 units 15 mL 12 02/24/2025 ActiveStart: 07-05-2024 End: 17-56-9653xrrpzah lispro (HumaLOG) 100 unit/mL insulin pen Inject 6 Units under the skin in the morning and 6Units at noon and 6 Units in the evening. 07/05/2024 01/22/2025 Discontinued (Duplicate Listing)Start: 47-32-0448gkrercc lispro (HumaLOG) 100 unit/mL insulin pen 08 units at each meals 07/05/2024 ActiveStart: 08-18-2023 End: 37-30-0796bghczz 2 [IU] by subcutaneous injection four times daily at mealtimeinsulin lispro (HumaLOG KwikPen Insulin) 100 unit/mL insulin pen Indications: Mixed diabetic hyperlipidemia associated with type 2 diabetes mellitus ([facility]) Inject 2 Units under the skin 4 (four) times a day with meals and nightly. Patient states only takes 2 units if BG over 200 (does NOT take se t dose of 36 units with meals) 08/18/2023 03/02/2024 Discontinued (Therapy completed)insulin, regular, human 100 unt/ml injectable solution (1 source)InsulinStart: 05-13-2025 End: Units, subcutaneous, Once, On 05/13/25 at 1505, For 1 dose, Look-alike/sound-alike medication- verify indication for use. Prandial/supplemental insulin. Stable for 28 days at room temperature.iopamidol (ISOVUE-370) 76 % injection 180 mL (1 source)Start: 01-13-2023 End: 63-59-6559gdnzkgchk (ISOVUE-370) 76 % injection 180 mL50 ml magnesium sulfate 40 mg/ml injection (4 sources)Start: 07-02-2025 End: 22-18-0756Ubaca: 07-02-2025 End: 64-20-3472Mxqvq: 05-14-2025 End: ,000 mg, intravenous, at 25 mL/hr, Administer over 120 Minutes, As needed, Magnesium level 1.7 to 1.9 mg/dL, or Ionized Magnesium level 0.45 to 0.5 mmol/L., Starting on Wed05/14/25 at 1011, Recheck magnesium level 4 hours after infusion complete. With each magnesium result continue the replacement orders as needed.Start: 05-14-2025 End: ,000 mg, intravenous, at 25 mL/hr, Administer over 240 Minutes, As needed, Magnesium level 1.6 mg/dL or less, or Ionized Magnesium level 0.44 mmol/L or less, Starting on Wed05/14/25 at 1011, Recheckmagnesium level 4 hours after infusion complete. With each magnesium result continue the replacement orders as needed.midodrine hydrochloride 5 mg oral tablet (16 sources)alpha-Adrenergic AgonistStart: 02-24-2025 End: 13-86-3367okog 1 tablet by mouth three times daily as neededmidodrine (PROAMATINE) 5 mg tablet Take 1 tablet (5 mg total) by mouth 3 (three) times a day as needed (SBP less than 90). 02/24/2025 05/13/2025 Discontinued (Therapy completed)[facility] ([facility] sources)Start: 01-01-2021 End: 64-10-2377pnggvwizemqfi medical supply [facility] [place] Indications: Medication management 1 Unit by miscellaneous route See Admin Instructions. Split oral medication as indicated 1 each 01/01/2021 03/02/2024 Discontinued(Therapy completed)Start: 73-30-2468gmkyfbwyncryy medical supply [facility] [place] Indications: Medication management 1 Unit by miscellaneous route See Admin Instructions. Split oral medication as indicated 1 each 0 01/01/2021 Active2 ml ondansetron 2 mg/ml injection (20 sources)Serotonin-3 Receptor AntagonistStart: 07-02-2025 End: 78-55-9490uznm 4 mg intravenously every four hours as needed for nausea and vomiting4 mg, intravenous, Every 4 hours PRN, nausea, vomiting, Starting on Wed07/02/25 at 1811, Intravenous administration preferred to be given over 2-5 minutes.Start: 05-13-2025 End: 27-33-1043ibaa 4 mg intravenously every six hours as needed for nausea and vomiting4 mg, intravenous, Every 6 hours PRN, nausea, vomiting, Starting on Wed05/13/25 at 1445, Scheduling/ADT, Intravenous administration preferred to be given over 2-5 minutes.Start: 64-64-4341gmit 1 tablet by mouth every eight hours as needed for nauseaondansetron ODT (ZOFRAN ODT) 4 mg disintegrating tablet Dissolve 1 tablet (4 mg total) on tongue every 8 (eight) hours as needed for nausea for up to 10 doses. 10 tablet 10/11/2024 ActiveStart: 09-27-2023 End: 29-06-8873zvti 1 tablet by mouth every eight hours as needed for nausea ondansetron ODT (ZOFRAN ODT) 4 mg disintegrating tablet Dissolve 1 tablet (4 mg total) on tongue every 8 (eight) hours as needed for nausea for up to 10 doses. 10 tablet 0 09/27/2023 12/15/2023 Discontinued (Therapy completed)Start: 12-07-2022 End: 70-93-1620egipicruamd (ZOFRAN) injection 4 mgtake 1 tablet by mouth every six hours as needed for nausea and vomitingondansetron (ZOFRAN) 4 mg tablet Take 1 tablet (4 mg total) by mouth every 6 (six) hours as needed for nausea or vomiting. Activepiperacillin 3000 mg / tazobactam 375 mg injection (1 source)Penicillin-class Antibacterial, beta Lactamase InhibitorStart: 05-13-2025 End: 91-85-9467klat 3.375 g intravenously every eight hours3.375 g, intravenous, at 12.5 mL/hr, Administer over 4 Hours, Every 8 hours, First dose on Sun at 1600, Scheduling/ADT, Start 4 hours after 4.5gram dose, Indication: Sepsis Potassium Chloride (2 sources)Start: 07-04-2025 End: 14-31-8724dzoqxdeyk chloride (K-TAB,KLOR-CON) CR tablet 30-50 mEqStart: 05-14-2025 End: 85-62-6743krppkgbsi chloride (K-TAB,KLOR-CON) CR tablet 30-50 mEq Promethazine (1 source)PhenothiazineStart: 07-02-2025 End: 90-43-3346dbtw 1 tablet by mouth every six hours as needed for nausea and vomitingpromethazine (PHENERGAN) tablet 12.5 mg72 hr scopolamine 0.0139 mg/hr transdermal system (1 source)AnticholinergicStart: 07-02-2025 End: patch, transdermal, Administer over 72 Hours, Every 72 hours, First dose on Wed07/02/25 at 1815, 1.5 mg patch delivers 1 mg scopolamine over 3 days. Patches are applied behind ear. Remove previous patch, before applying new. Remove patch prior to MRI procedure as serious rodriguez may occur. 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 0 Uznxop211 ml sodium chloride 9 mg/ml prefilled syringe (20 sources)Start: 07-02-2025 End: mL, intravenous, Every 12 hours scheduled, First dose on Wed07/02/25 at 2100Start: 07-02-2025 End: 90-37-4877rvsb 50 mL intravenously every hour50 mL/hr, intravenous, Continuous, Starting on Wed07/02/25 at 1815, For 1 dayStart: 07-02-2025 End: 97-61-3981Vwrsr: 07-02-2025 End: 69-79-9134Fawzu: 05-13-2025 End: 32-02-2741rntu 75 mL intravenously every hour75 mL/hr, intravenous, Continuous, Starting on Wed05/13/25 at 1450, Scheduling/ADTStart: 05-13-2025 End: 83-11-7697assp 20 mL intravenously every hour as mL/hr, intravenous, Continuous PRN, to maintain patency of lines, Starting on Wed05/13/25 at 1445, Scheduling/ADTStart: 05-13-2025 End: 53-32-7978qemh 25 mL intravenously every hour as dujtxn33 mL, intravenous, at 100 mL/hr, Administer over 15 Minutes, As needed, line care, line care after IVPB administration, Starting on Wed05/13/25 at 1445, Scheduling/ADTStart: 05-13-2025 End: ,710 mL (30 mL/kg 57 kg [place] weight), intravenous, at 1,682 mL/hr, Administer over 61 Minutes, Once, On Wed05/13/25 at 1110, For 1 dose Start: 05-13-2025 End: mL, intravenous, As needed, line care, before and after each intermittent use, Starting on Wed05/13/25 at 1034Start: 45-84-7285vmbr 25 mL intravenously every hour as enwsgu47 mL/hr, intravenous, Continuous PRN, When mainline IV needed., Starting on Wed03/30/25 at 0750, Match IVF to base solution of product being administered to ensure compatibility.Start: 56-49-4507hleb 25 mL intravenously every hour as kiiorw89 mL/hr, intravenous, Continuous PRN, When mainline IV needed., Starting on Wed03/23/25 at 1412, Match IVF to base solution of product being administered to ensure compatibility.Start: mL, intravenous, As needed, line care, to lumen(s) as needed before and after each use., Starting on Wed03/22/25 at 0947Start: 43-08-8765ervd 25 mL intravenously every hour as aerrtw49 mL/hr, intravenous, Continuous PRN, When mainline IV needed., Starting on Wed03/22/25 at 0820, Match IVF to base solution of product being administered to ensure compatibility.Start: mL, intravenous, As needed, line care, to lumen(s) as needed before and after each use., Starting on Wed03/20/25 at 0813Start: 03-14-2025 End: mL, intravenous, As needed, line care, to lumen(s) as needed before and after each use., Starting on Wed03/14/25 at 1151Start: 36-97-487565 mL, intravenous, As needed, line care, to lumen(s) as needed before and after each use., Starting on Wed03/12/25 at 0757Start: 01-13-2023 End: .9 % sodium chloride infusionStart: 23-37-9556pnhh 1 dose intravenously twice daily5-40 mL, IntraVENous, EVERY 12 HOURS SCHEDULED (2 times per day), First dose on Wed12/07/22 at 2100, Until Discontinued For Line Patency: Peripheral IV = 5 mL; Midline or Central Line = 10 mL/lumen.&a mp;nbsp; If following IV push medication, administer flush at same rate as the IV push. Flush volume is determined by type of infusion therapy being given. For non-viscoussolutions use: Peripheral IV = 5 mL Midline or Central Line = 10 mL/lumen For viscous solutions (i.e. blood components, parenteral nutrition, contrast media, or after obtaining blood sample) use: Peripheral IV = 10 mL Midline or Central Line = 20 mL/lumen Recovery(Cath)Start: 88-78-3080FboujVCFrim, at 5-250 mL/hr, PRN, if patient receiving piggyback infusions and maintenance fluids are not ordered OR KVO fluids to protect IV site / prevent frequent line interruptions/ long duration, Starting on Wed12/07/22 at 1618 For piggyback infusion, administer at same rate as piggyback for atotal of 25 mL. Enter 25 mL into dose field and piggyback rate into rate field of order. If piggyback is infusing at a rate less than 100 mL/hr, enter 25 mL into dose field and 100 mL/hr into rate field of order. For KVO fluids, enter rate of 20 mL/hr or less into rate field of order. Recovery(Cath)Start: 57-97-9049euji 5-40 mL intravenously once as needed 5-40 mL, IntraVENous, PRN, [...] Midline or Central Line = 20 mL/lumen Recovery(Cath)Start: 12-07-2022 End: .9 % sodium chloride infusionStart: .9 % sodium chloride infusionsodium phosphate 20 mmol in sodium chloride 0.9 % 250 mL IVPB (2 sources)Start: 07-02-2025 End: 82-17-4666nzvaeo phosphate 20 mmol in sodium chloride 0.9 % 250 mL IVPB Start: 05-14-2025 End: 62-25-3034mtqslx phosphate 20 mmol in sodium chloride 0.9 % 250 mL IVPB traMADol hydrochloride 50 mg oral tablet (3 sources)Opioid AgonistStart: 05-12-2025 End: 67-01-2129lrut 1 tablet by mouth every six hours as needed for pain and pain50 mg, oral, Every 6 hours PRN, severe pain - pain scale 7-10, moderate pain - pain scale 4-6, Starting on Wed05/14/25 at 0138, Look-alike/sound-alike medication - verify indication for use.traZODone hydrochloride 50 mg oral tablet (20 sources)Serotonin Reuptake InhibitorStart: 07-02-2025 End: 95-77-9405rnnr 100 mg by mouth once obpfd207 mg, oral, Nightly, First dose on Wed07/02/25 at 2200, Look-alike/sound-alike medication - verify indication for use.Start: 09-28-2023 End: 01-65-4071qghu 1 tablet by mouth once dailytraZODone (DESYREL) 100 mg tablet Indications: Insomnia, unspecified type TAKE 1 TABLET BY MOUTH EVERY DAY AT NIGHT 90 tablet 1 11/28/2024 Activevitamin b12 0.5 mg oral tablet (20 sources)Vitamin U92Rdgdr: 07-02-2025 End: 07-20-3991cqeh 1000 ug by mouth once daily1,000 mcg, oral, Daily, First dose on Wed07/02/25 at 1815Start: 80-60-9481uyxo 1 tablet by mouth in the morningcyanocobalamin 1000 MCG tablet Take 1 tablet (1,000 mcg total) by mouth in the morning. 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]Onset: 166696-03-8629TpoccgfGjpwyxj dysrhythmias (20 sources)Atrial fibrillation with rapid ventricular response; Translations: [Unspecified atrial fibrillation]Onset: 180198-86-3458MctpuhtGcvdxshh (20 sources)Pseudophakia; Translations: [Presence of intraocular lens]Onset: 16-44-2531GzwqhzbEbjspuq kidney disease (20 sources)Chronic kidney disease; Translations: [Chronic kidney disease, unspecified]Onset: 184898-95-1919GochjzsNgvstay kidney disease (6 sources)Chronic kidney disease; Translations: [Chronic kidney disease, stage 3a]Onset: 59-54-8384Vlxxnhf obstructive pulmonary disease and bronchiectasis (20 sources)Chronic obstructive pulmonary disease, unspecified; Translations: [Chronic obstructive lung disease]Onset: 884494-58-6684ZqcheuuAbxhsrokdb disorders (20 sources)Left bundle branch block; Translations: [Left bundle-branch block, unspecified]Onset: 850182-69-6145YnzqxnhKvezdbvztk heart failure; nonhypertensive (20 sources)Acute on chronic diastolic heart failure; Translations: [Acute on chronic diastolic (congestive) heart failure]Onset: 10-05-2022 Resolved: 876402-44-3773HdfahppUxihwyjg atherosclerosis and other heart disease (20 sources)Disorder of coronary artery; Translations: [Atherosclerotic heart disease of [place] coronary arterywithout angina pectoris]Onset: 10-14-2021 22-67-9047OjyqymaRlnaphwzcr and other anemia (20 sources)Anemia of chronic disease; Translations: [Anemia in other chronic diseases classified elsewhere]Onset: 424704-50-1564RhrgwtwUxwoykmstl and other anemia (1 source)Iron deficiency anemia due to blood loss; Translations: [Iron deficiency anemia secondary to blood loss (chronic)]13-71-8961QbcyxglCrfxefpvaq and other anemia (1 source)Iron deficiency anemia secondary to blood loss (chronic); Translations: [Iron deficiency anemia secondary to blood loss (chronic)]Onset: 84-19-9418SutmydsRgivxndpdi and other anemia (1 source)Anemia in other chronic diseases classified elsewhere; Translations: [Anemia in other chronic diseases classified elsewhere]Onset: 69-24-1193Reeojgf Deficiency and other anemia (6 sources)Anemia; Translations: [Anemia, unspecified]Onset: 01-13-2023 54-28-9114TxvxksjzQxyfktug mellitus with complications (20 sources)Type 2 diabetes mellitus; Translations: [Type 2 diabetes mellitus with diabetic neuropathy, unspecified]Onset: 913519-51-6661RdumjgfPrblkoad mellitus without complication (20 sources)Type 2 diabetes mellitus without complications; Translations: [Insulin treated type 2 diabetes mellitus]Onset: hronic Disorders of lipid metabolism (3 sources)Pure hypercholesterolemia, unspecified; Translations: [Mixed hyperlipidemia]Onset: 19-32-0146EqepgppF Codes: Fall (1 source)FallOnset: 56-13-8336Bjnthdqzlg disorders (20 sources)Gastro-esophageal reflux disease without esophagitis; Translations: [Gastroesophageal reflux disease without esophagitis]Onset: ChronicEssential hypertension (20 sources)Essential (primary) hypertension; Translations: [Essential hypertension]Onset: 09-14-2019 Resolved: 277792-66-7524YfxhrheFdvsbwdq of neck of femur (hip) (20 sources)Closed fracture of hip; Translations: [Closed fracture of femur, lesser trochanter]Onset: 137204-94-8096HzluffadWdmtl valve disorders (20 sources)Nonrheumatic aortic (valve) stenosis; Translations: [Aortic valve disorders]Onset: 10-05-2022 Resolved: 640538-31-9816DlwkxuiVrlqmtskxmvr with complications and secondary hypertension (20 sources)Hypertensive heart AND renal disease; Translations: [Hypertensive heart and chronic kidney disease with heart failure and stage 1 through stage 4 chronic kidney disease, or unspecified chronic kidneydisease]Onset: 04-02-2023 17-23-8136CotvynwTicmrqd and fatigue (20 sources)Asthenia; Translations: [Weakness]Onset: EpisodicMood disorders (20 sources)Major depressive disorder, single episode, unspecified; Translations: [Moderate recurrent major depression]Onset: 01-30-2019 Resolved: 558955-37-0793LufyempIygrqx and vomiting (20 sources)Intractable nausea and vomiting; Translations: [Nausea with vomiting, unspecified]Onset: 831879-60-1524CrbulsgvCqrrhnqtawkaks (20 sources)Primary gonarthrosis, bilateral; Translations: [Bilateral primary osteoarthritis of knee]Onset: 594638-24-7581ZdxxwczNetmn aftercare (1 source)Other retirement (current) drug therapy; Translations: [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]Onset: 88-39-5639XmfaqyqpYwqzw aftercare (1 source)Post-discharge follow-up; Translations: [Encounter for follow-up examination after completed treatment for conditions other than malignant neoplasm]49-98-6757QefvhdmuCesdu bone disease and musculoskeletal deformities (14 sources)Lesion of left thigh bone; Translations: [Disorder of bone, unspecified]Onset: 220039-04-2595QwhdamgzAhcxk bone disease and musculoskeletal deformities (1 source)Disorder of bone, unspecified; Translations: [Disorder of bone, unspecified]Onset: 00-99-6900LshquqvwEfrwk circulatory disease (6 sources)History of angioplasty; Translations: [Peripheral vascular angioplasty status with implants and grafts]Onset: 819395-18-0389Tmczexr Other endocrine disorders (2 sources)Hypoglycemia; Translations: [Hypoglycemia, unspecified]06-21-2024 ChronicOther endocrine disorders (2 sources)Hypoglycemia, unspecified; Translations: [Hypoglycemia, unspecified] Onset: 76-71-8704RbouvebVlbnu eye disorders (3 sources)Vitreous degeneration, bilateral; Translations: [PVD (posterior vitreous detachment), both eyes]Onset: 40-89-9169NqoqahnFqmuz female genital disorders (20 sources)Mass of uterine adnexa; Translations: [Other specified conditions associated with female genital organs and menstrual cycle]Onset: 07-03-2025 42-17-8606GicatdagBkkuy female genital disorders (2 sources)Other specified conditions associated with female genital organs and menstrual cycle; Translations:[Other specified conditions associated with female genital organs and menstrual cycle]Onset: 82-97-8902DkzszixxWdhbv fractures (20 sources)Fracture of pelvis; Translations: [Fracture of unspecified parts of lumbosacral spine and pelvis, initial encounter for closed fracture]Onset: 385593-48-7267LriedxnzZgjoh fractures (1 source)Closed fracture of pelvis; Translations: [Fracture of unspecified parts of lumbosacral spine and pelvis, subsequent encounter for fracture with routine healing]73-06-4699BxsjnalaPoyrf fractures (1 source)Fracture of unspecified parts of lumbosacral spine and pelvis, initial encounter for closed fracture; Translations: [Fracture of unspecified parts of lumbosacral spine and pelvis, initial encounter for closed fracture]Onset: 65-62-7345QfaishlvAzyrz lower respiratory disease (2 sources)Shortness of breath; Translations: [Shortness of breath]Onset: 09-47-2808BureqxzxKlygo nervous system disorders (20 sources)Cerebral ventriculomegaly; Translations: [Other specified disorders of brain]Onset: 801898-58-3947GledcoeHdqnb nervous system disorders (20 sources)Normal pressure hydrocephalus; Translations: [(Idiopathic) normal pressure hydrocephalus]Onset: 619763-85-1286FdvjcvyQaryj nervous system disorders (20 sources)Difficulty walking; Translations: [Difficulty in walking, not elsewhere classified]Onset: 568778-01-7344EltycqpSfoij nervous system disorders (2 sources)(Idiopathic) normal pressure hydrocephalus; Translations: [(Idiopathic) normal pressure hydrocephalus]Onset: 29-81-0532QtbteuwSlunv nervous system disorders (2 sources)Presence of cerebrospinal fluid drainage device; Translations: [Presence of cerebrospinal fluid drainage device]Onset: 53-27-2973DibmitpWuvxd nervous system disorders (1 source)Other chronic pain; Translations: [Other chronic pain]Onset: 93-23-6844TzmrdayLefal nervous system disorders (1 source)Tremor, unspecified; Translations: [Tremor, unspecified]Onset: 98-63-1738ImdywbjqZlpnr nervous system disorders (2 sources)Unspecified abnormalities of gait and mobility; Translations: [Unspecified abnormalities of gait and mobility]Onset: 68-42-0464JhlcjnggIqkxm non-traumatic joint disorders (20 sources)Hip pain; Translations: [Pain in right hip]Onset: 05-11-2025 91-53-8506JcbzqntgFnvcz non-traumatic joint disorders (1 source)Pain in right hip; Translations: [Pain in right hip]Onset: 07-10-2025 EpisodicOther nutritional; endocrine; and metabolic disorders (20 sources)Obesity; Translations: [Obesity, unspecified]Onset: 04-11-2024 20-77-6620KdxmdzwNlshw nutritional; endocrine; and metabolic disorders (20 sources)Hypomagnesemia; Translations: [Hypomagnesemia]Onset: 06-14-2024 00-43-5356NjswtckHwoif nutritional; endocrine; and metabolic disorders (2 sources)Hypomagnesemia; Translations: [Hypomagnesemia]Onset: 06-14-2024 ChronicOther upper respiratory disease (1 source)Rhinitis; Translations: [Chronic rhinitis]19-49-3068Ntmrpvr Pathological fracture (20 sources)Pathological fracture of proximal end of femur; Translations: [Pathological fracture, hip, unspecified, initial encounter for fracture]Onset: 60-31-388663694825-04-3799VmyjqpmxSvhhahiuat and visceral atherosclerosis (20 sources)Peripheral vascular disease, unspecified; Translations: [Peripheral vascular disease]Onset: 570465-43-3293VmzlxiwHclysbow codes; unclassified (2 sources)Obstructive sleep apnea (adult) (pediatric); Translations: [OBSTRUCTIVE SLEEP APNEA]Onset: 55-11-6454NlxlfqlChrqqtds codes; unclassified (20 sources)Obstructive sleep apnea syndrome; Translations: [Obstructive sleep apnea (adult) (pediatric)]Onset: 999432-89-1477CkqriqpWywtcskl codes; unclassified (5 sources)H/O: blood transfusion; Translations: [Personal history of other medical treatment]Onset: 884855-17-4301MkgnkbufIljnnlzu codes; unclassified (6 sources)Family history of coronary arteriosclerosis; Translations: [Family history of ischemic heart disease and other diseases of the circulatory system] Onset: 530793-78-0365RrzxfwuuIfskntvn codes; unclassified (1 source)Family history of ischemic heart disease and other diseases of the circulatory system; Translations: [Family history of ischemic heart disease and other diseases of the circulatory system]Onset: 20-45-5008KfofwpujYwlgohyg codes; unclassified (2 sources)Other amnesia; Translations: [Other amnesia]Onset: 13-00-4243Flnzllqd Residual codes; unclassified (2 sources)Confusional state; Translations: [Disorientation, unspecified]Onset: 528644-13-6978MzybhptuYibtwlzs codes; unclassified (1 source)Estrogen receptor positive status [ER+]; Translations: [Estrogen receptor positive status (ER+)]Onset: 65-26-6536XzilxgaqZnvlpiy detachments; defects; vascular occlusion; and retinopathy (20 sources)Venous retinal branch occlusion; Translations: [Retinal edema]Onset: 65-89-0027KjtqhrpQnbjufoey malignancies (20 sources)Secondary malignant neoplasm of bone; Translations: [Secondary malignant neoplasm of bone]Onset: 515438-82-5847TndqqndGeqaoqfoi malignancies (1 source)Secondary malignant neoplasm of bone; Translations: [Secondary malignant neoplasm of bone]Onset: 76-88-0418UtmomcrEeqqgmbmohx; intervertebral disc disorders; other back problems (20 sources)Herniation of nucleus pulposus of lumbar intervertebral disc; Translations: [Other intervertebral disc displacement, lumbar region]Onset: 737595-28-1057SpwtfugWaduzkr and intentional self-inflicted injury (4 sources)Poisoning by insulin and oral hypoglycemic [antidiabetic] drugs, intentional self-harm, initial encounter; Translations: [PSN INSULIN ORL HG RX SLF-HRM INIT]Onset: 68-36-1308FaszdugeFoztyxwtwuwu (1 source)CONTACT W/AND (SUSP) EXPOS COVID-19; Translations: [CONTACT W/AND (SUSP) EXPOS COVID-19]Onset: 89-45-5062Dpjhfgntaogb (1 source)tcmOnset: 93-46-2047Wahxwawtkxeu (8 sources)Autogenerated ProblemOnset: 907313-31-5476Cswrpgmwijqh (1 source)Post-opOnset: 40-76-7144Wjihedjxudwu (1 source)Weakness - GeneralizedOnset: 28-28-7370Edfstcgbuqpp (1 source)Low back pain, unspecified; Translations: [Low back pain, unspecified] Onset: 03-25-4503Yuzfepqxqqyg (1 source)Outpatient InfusionOnset: 85-55-2890Dctngriehrhn (1 source)Medical ScreeningOnset: 57-12-0274Agwpzluhgqhf (1 source)Female DysuriaOnset: 48-11-0140Ftjwzrpcjzyo (1 source)Low Blood Sugar - No SymptomsOnset: 06-05-9390Txptppkajdwl (1 source)Low Blood Sugar - SymptomaticOnset: 22-08-9005Oirjsqxdowxf (1 source)Painful UrinationOnset: 99-55-2983Ekqvcuoyvdru (1 source)IllOnset: 43-52-0876Ulrsbcd tract infections (20 sources)Acute cystitis without hematuria; Translations: [Acute cystitis] Onset: 074523-24-3530Iutvexxi Past or Other Problems Problem ClassificationProblemDateDocumented DateEpisodic/ChronicAbdominal pain (1 source)Abdominal painOnset: 11-66-1071ZjaqsarmDrfxw and unspecified renal failure (20 sources)Acute injury of kidney; Translations: [Acute kidney failure, unspecified]Onset: 39-57-5354VkvorgqtUhnlx myocardial infarction (20 sources)Myocardial infarction; Translations: [Non-ST elevation (NSTEMI) myocardial infarction]Onset: 09-28-2022 Resolved: 125954-54-9284CnuowlqSmznhiccjpouxh/social admission (20 sources)Finding of activity of daily living; Translations: [Limitation of activities due to disability]Onset: 618425-56-2380PcxnndukDeibnvuyw infection; unspecified site (20 sources)Methicillin resistant Staphylococcus aureus infection; Translations: [Methicillin resistant Staphylococcus aureus infection as the cause of diseases classified elsewhere]Onset: 255766-83-1551BieflrhsFzbveehpwn associated with dizziness or vertigo (20 sources)Dizziness; Translations: [Dizziness and giddiness]Onset: 09-14-2019 Resolved: 074753-87-1013TjwdosrfPnvlhwwzmp and other anemia (20 sources)Iron deficiency anemia secondary to inadequate dietary iron intake; Translations: [Other iron deficiency anemias]Onset: 638910-17-0448Urvvvsls Deficiency and other anemia (20 sources)Iron deficiency anemia; Translations: [Iron deficiency anemia, unspecified]Onset: 040012-41-5463JddqthqoE Codes: Fall (1 source)Unspecified fall, initial encounter; Translations: [Unspecified fall, initial encounter]Onset: 50-94-3547HnjmwbroDevxb of unknown origin (1 source)Fever, unspecified; Translations: [Fever, unspecified]Onset: 85-14-9075VrwjcdxyVotdk and electrolyte disorders (20 sources)Lactic acidosis; Translations: [Lactic acidosis]Onset: 06-14-2024 36-05-7221KoxukwwwUyebxdhagnnqylrq hemorrhage (20 sources)Gastrointestinal hemorrhage; Translations: [Gastrointestinal hemorrhage, unspecified]Onset: 646019-11-4686NlnxtlfmRfbmyyqssrjmh symptoms and ill-defined conditions (20 sources)Total urinary incontinence; Translations: [Continuous leakage]Onset: 03-19-2019 Resolved: 657455-13-3131QuobcuwDitjg valve disorders (20 sources)Heart murmur; Translations: [Cardiac murmur, unspecified]Onset: 417919-07-0613OnomnuceGjjbturpccglg and screening for infectious disease (2 sources)Needs influenza immunization; Translations: [Encounter for immunization]Onset: 772493-16-3067NeqjwhlfGlgz disorders (20 sources)Mood disordersOnset: 10-28-2024 Resolved: 116028-47-2230Vyihvoe (3 sources)Candidal intertrigo; Translations: [Candidiasis of skin and nail] Onset: 810528-33-4125ZhdyuwruBdkld aftercare (3 sources)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 (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; Translations: [TECHNICAL STAFF ENGINEER CURRENT USE OF INSULIN]Onset: 71-01-0794DcmhxhkoIxjam connective tissue disease (20 sources)Muscle weakness; Translations: [Muscle weakness (generalized)]Onset: 545585-41-0063AolgllkcDjqhm connective tissue disease (20 sources)Other symptoms and signs involving the musculoskeletal system; Translations: [Other musculoskeletalsymptoms referable to limbs]Onset: 08-31-2018 Resolved: 672999-29-0636YcjqltyjQkohv connective tissue disease (5 sources)Paraparesis; Translations: [Other symptoms and signs involving the musculoskeletal system]Onset: 08-31-2018 Resolved: 380030-64-1120WxjxisjuBnkbt connective tissue disease (1 source)Pain in lower limbOnset: 18-47-9691TyxjjlsdXvkko fractures (20 sources)Closed fracture pubis; Translations: [Unspecified fracture of left pubis, subsequent encounter for fracture with routine healing]Onset: 03-28-2023 40-32-6732VbppkolmHwgpz gastrointestinal disorders (20 sources)Constipation; Translations: [Constipation, unspecified]Onset: 276023-90-1755NdxdyayiDhzox inflammatory condition of skin (1 source)ItchingOnset: 84-03-8316EqpioqyvHcxxl injuries and conditions due to external causes (2 sources)Other injury of unspecified body region, initial encounter; Translations: [Other injury of unspecified body region, initial encounter]Onset: 38-63-3541XxlzthrkJhfnw lower respiratory disease (2 sources)Hypoxemia; Translations: [Hypoxemia]Onset: 06-33-8057QzrfolepPcuuv lower respiratory disease (20 sources)Dyspnea; Translations: [Shortness of breath]Onset: 10-05-2022 30-81-0680GtjapsrrPxpsj lower respiratory disease (20 sources)H/O: pneumonia; Translations: [Personal history of pneumonia (recurrent)]Onset: 985527-61-9218WvlbbxioVwimi lower respiratory disease (20 sources)Hypoxia; Translations: [Hypoxemia]Onset: EpisodicOther nervous system disorders (20 sources)Tremor; Translations: [Tremor, unspecified]Onset: 01-13-2023 81-92-7752WpqyuaqcOtzlu nervous system disorders (20 sources)Finding related to ability to move; Translations: [Other abnormalities of gait and mobility]Onset: 950214-03-7913SjpuofrkEynav screening for suspected conditions (not mental disorders or infectious disease) (20 sources)D-dimer above reference range; Translations: [Other specified abnormal findings of blood chemistry]Onset: 139482-13-8718VxigwjkvJpuoz upper respiratory infections (1 source)Upper respiratory infection; Translations: [Acute upper respiratory infection, unspecified]35-09-0575IppkuhdpHsvycwdnp (except that caused by tuberculosis or sexually transmitted disease) (20 sources)Community acquired pneumonia; Translations: [Unspecified bacterial pneumonia]Onset: 09-28-2022 Resolved: [id number] codes; unclassified (20 sources)Edema of lower extremity; Translations: [Localized edema]Onset: 828299-98-3961SwaloehhFlvczvel codes; unclassified (20 sources)Denture present; Translations: [Presence of dental prosthetic device (complete) (partial)]Onset: 061956-06-0832YdxslnokKqnclyfm codes; unclassified (20 sources)Insomnia; Translations: [Insomnia, unspecified]Onset: 04-11-2024 34-22-1389KpgyhnxfXuvsikhh codes; unclassified (20 sources)Altered mental status; Translations: [Altered mental status, unspecified]Onset: 08-23-2024 Resolved: 943056-73-0305AbspmtwcJjqxxhkv codes; unclassified (1 source)Insomnia, unspecified; Translations: [Insomnia, unspecified]Onset: 00-38-6252QeeknsqoWrvkpoqv codes; unclassified (1 source)Other specified health status; Translations: [Other specified health status]Onset: 05-71-0032EudzumhdBpmtrxsr codes; unclassified (1 source)Altered mental status, unspecified; Translations: [Altered mental status, unspecified]Onset: 78-67-5193SddedmztCazewaoenzx failure; insufficiency; arrest (adult) (20 sources)Acute hypoxemic and hypercapnic respiratory failure; Translations: [Acute respiratory failure with hypoxia]Onset: 08-12-2024 Resolved: 413373-86-7780ZeanniogKysskqfsci (except in labor) (20 sources)Sepsis without acute organ dysfunction; Translations: [Sepsis, unspecified organism]Onset: 134016-32-6409SpynrloiHxihkyylpln; intervertebral disc disorders; other back problems (20 sources)Lumbar radiculopathy; Translations: [Radiculopathy, lumbar region] Onset: 926544-70-3762WxtjmsbcWolwgjxawdkz (20 sources)Onset: 02-09-2024 Resolved: 579998-24-9975Xeuunxjfqcni (2 sources)AMD (chief complaint)Onset: 43-89-2208Kiwol infection (20 sources)Disease caused by 2019-nCoV; Translations: [COVID-19]Onset: 391565-99-2897Guvzujle Results Test NameValueInterpretationReference RangeFacilityPET CT SKULL TO THIGHon 44-79-4019WIG CT SKULL TO THIGHNormalProMedica Mercy Medical CenterXR FEMUR RT 2+ VIEWSon 31-41-1033YP FEMUR RT 2+ VIEWSNormalProMedica [facility] GLUCOSEon 41-39-8683Igaxfzk [Mass/Vol]133 mg/rYEfao18-23JxvDylllh [facility] HospitalComment on above:Performed By: #### BEDG ####[facility] ([facility])[address] [place] [address] VIRGlucose [Mass/Vol]113 mg/fXMwfg62-52 [facility] HospitalComment on above:Performed By: #### BEDG ####[facility] ([facility])[address] [place] [address] VIRTYPE AND SCREENon 36-31-5289KOV_ITINRTAkgphfBgsTqslzm [facility] HospitalComment on above:Performed By: #### TSC ####[facility] ([facility])[address] [place] [address] VIRRH_INTEPNegativeNormalProPomerene Hospitalca [facility] HospitalComment on above: Performed By: #### TSC ####[facility] ([facility])[address] [place] [address] LFK96lb [id number] by: STEFFI RODRIGUEZ on: 08/06/2025 08:27 AM Modules accepted: OrdersNormalUniversity of The Medical Center Of Southeast TexasFollow-Upon [id number]-[id number] [place] 1945 F Date Provider Department Center 07/31/2025 [facility] SURG [place] Fl Family History Problem Relation Age of Onset Diabetes Mother Hypertension Father Coronary artery disease Father Family Status - Relation Status Age at Mother Father Level of Service:01619 CO OFFICE/OUTPATIENT ESTABLISHED MOD MDM 30 MIN Reason for Visit and Comments: Follow-up [098365] - Shunt check after MRINormalUniversity of The Medical Center Of Southeast TexasBEDSELECT [facility] GLUCOSEon 25-66-8829Dalmkxh [Mass/Vol]92 mg/vNKobpdc15-14EiiVcdkla [facility] HospitalComment on above:Performed By: #### BEDG ####[facility] ([facility])[address] [place] [address] VIRCBC WITH AUTO DIFFERENTIAL on 48-75-9038Llmz form neutrophils/100 WBC (Bld)1 %NormalProSt. Rita's Hospital on above:Result Comment: This is an appended report. These results have been appended to a previously preliminary verified report.Performed By: #### CBCA ####[facility] ([facility])[address], [place] [address] VIRCELLAVISION DIFFERENTIAL TYPEMANUAL DIFFERENTIALNormal [facility]itan HospitalComfresenius medical care at [facility] on above:Result Comment: This is an appended report. These results have been appended to a previously preliminary verified report.Performed By: #### CBCA ####[facility] ([facility])[address], [place] [address] VIRCELLAVISION ELLIPTOCYTES IN BLOOD BY LIGHT MICROSCOPY1+NormalProSumma Health Akron CampusComfresenius medical care at [facility] on above:Result Comment: This is an appended report. These results have been appended to a previously preliminary verified report.Performed By: #### CBCA ####[facility] ([facility])[address], [place] [address] VIR CELLAVISION EOSINOPHILS ABSOLUTE COUNT (10*3/UL) BY MANUAL COUNT0.4 10*3/uL Normal0.0-0.4[facility] on above:Result Comment: This is an appended report. These results have been appended to a previously preliminary verified report.Performed By: #### CBCA ####[facility] ([facility])[address], [place] [address] VIRCELLAVISION EOSINOPHILS PERCENT BY MANUAL COUNT5 %NormalProSumma Health Akron CampusComfresenius medical care at [facility] on above:Result Comment: This is an appended report. These results have been appended to a previously preliminary verified report.Performed By: #### CBCA ####[facility] ([facility])[address], [place] [address] VIR CELLAVISION LYMPHOCYTES ABSOLUTE COUNT (10*3/UL) BY MANUAL COUNT1.6 10*3/uL Normal1.0-3.5ProMedica Childers HospitalComment on above:Result Comment: This is an appended report. These results have been appended to a previously preliminary verified report.Performed By: #### CBCA ####[facility] ([facility])[address], [place] [address] VIRCELLAVISION LYMPHOCYTES RELATIVE PERCENT BY MANUAL COUNT18 %NormalProMedica Childers HospitalComment on above:Result Comment: This is an appended report. These results have been appended to a previously preliminary verified report.Performed By: #### CBCA ####[facility] ([facility])[address], [place] [address] VIRCELLAVISION MONOCYTES ABSOLUTE COUNT (10*3/UL) IN BLOOD BY MANUAL COUNT 0.7 10*3/uLNormal0.0-0.9ProPomerene Hospitalca [facility] HospitalComment on above:Result Comment: This is an appended report. These results have been appended to a previously preliminary verified report.Performed By: #### CBCA ####[facility] ([facility])[address], [place] [address] VIR CELLAVISION MONOCYTES RELATIVE PERCENT BY MANUAL COUNT8 %NormalProMedica Childers HospitalComment on above:Result Comment: This is an appended report. These results have been appended to a previously preliminary verified report.Performed By: #### CBCA ####[facility] ([facility])[address], [place] [address] VIRCELLAVISION MYELOCYTE RELATIVE PERCENT BY MANUAL COUNT2 %NormalProMedica Childers HospitalComment on above:Result Comment: This is an appended report. These results have been appended to a previously preliminary verified report.Performed By: #### CBCA ####[facility] ([facility])[address], [place] [address] VIRCELLAVISION NEUTROPHILS ABSOLUTE COUNT BY MANUAL COUNT5.9 10*3/uLNormal1.5-6.6[facility] Comment on above:Result Comment: This is an appended report. These results have been appended to a previously preliminary verified report.Performed By: #### CBCA ####[facility] ([facility])[address], [place] [address] VIRCELLAVISION NEUTROPHILS RELATIVE PERCENT BY MANUAL COUNT 66 %NormalBlanchard Valley Health System Bluffton HospitalComment on above:Result Comment: This is an appended report. These results have been appended to a previously preliminary verified report.Performed By: #### CBCA ####[facility] ([facility])[address], [place] [address] VIRCELLAVISION POLYCHROMASIA IN BLOOD BY LIGHT MICROSCOPY1+NormalBlanchard Valley Health System Bluffton HospitalComment on above: Result Comment: This is an appended report. These results have been appended to a previously preliminary verified report.Performed By: #### CBCA ####[facility] ([facility])[address], [place] [address] VIR Erythrocyte distribution width (RBC) [Ratio]17.1 %High11.5-15ProSumma Health Akron CampusComment on above:Performed By: #### CBCA ####[facility] ([facility])[address], [place] [address] VIRHematocrit (Bld) [Volume fraction]25.0 %Ifm71-60DkfLbnbgz [place] HospitalComment on above: Performed By: #### CBCA ####[facility] ([facility])[address], [place] [address] VIRHemoglobin (Bld) [Mass/Vol]8.4 g/dLLow 11.7-15.5Pro[facility] HospitalComment on above:Performed By: #### CBCA ####[facility] ([facility])[address], [place] [address] VIRMCH (RBC) [Entitic mass]28.3 gwTqalcw03-72MmhPremfrBlanchard Valley Health System [facility] Comment on above:Performed By: #### CBCA ####[facility] ([facility])[address], [place] [address] VIRMCHC (RBC) [Mass/Vol]33.8 g/dL Nriqml97-42TerEoigoiBlanchard Valley Health System Bluffton HospitalComment on above:Performed By: #### CBCA ####[facility] ([facility])[address], [place] [address] VIRMCV (RBC) [Entitic vol]84 yAEoojbz51-842HbsQqkxamBlanchard [facility] Comment on above:Performed By: #### CBCA ####[facility] ([facility])[address], [place] [address] VIRPlatelet mean volume (Bld) [Entitic vol]7.9 fLNormal7-12PKettering Health Greene Memorial HospitalComment on above:Performed By: #### CBCA ####[facility] ([facility])[address], [place] [address] VIRPlatelets (Bld) [#/Vol]221 10*3/aKTvneqi094-024ArfMfnkbz [place] HospitalComment on above:Performed By: #### CBCA ####[facility] ([facility])[address], [place] [address] VIRRBC COUNT2.97 X10E12/LLow3.8-5.2PKettering Health Greene Memorial HospitalComment on above:Performed By: #### CBCA ####[facility] ([facility])[address], [place] [address] VIRWBC (Bld) [#/Vol]8.8 10*3/uLNormal4-11ProGrand [facility] Memorial Hospital HospitalComment on above:Performed By: #### CBCA ####[facility] ([facility])[address], [place] [address] VIRCOMPREHENSIVE METABOLIC PANELon 25-50-6458Rhaptca [Mass/Vol]2.8 g/dLLow3.2-5.3ProMedWayne Hospital HospitalComment on above:Performed By: #### CMP ####[facility] ([facility])[address] [address] VIRALP [Catalytic activity/Vol]111 U/KWxfgpj73-792NkfZvxktt Childers HospitalComment on above: Performed By: #### CMP ####[facility] ([facility])[address] [address] VIRALT [Catalytic activity/Vol]U/LNormal<=31 [facility] HospitalComment on above:Performed By: #### CMP ####[facility] ([facility])[address] [address] VIR Anion gap [Moles/Vol]5 mmol/LNormal5-15ProPomerene Hospitalca [facility] HospitalComment on above:Performed By: #### CMP ####[facility] ([facility])[address] [address] VIRAST [Catalytic activity/Vol]21 U/LNormal <=41ProMedica Childers HospitalComment on above:Performed By: #### CMP ####[facility] ([facility])[address] [address] VIR Bilirubin [Mass/Vol]0.5 mg/dLNormal0.3-1.2ProMedWayne Hospital HospitalComment on above:Performed By: #### CMP ####[facility] ([facility])[address] [address] VIRCalcium [Mass/Vol]9.3 mg/dLNormal8.5-10.5 ProMeliza coffee memorial hospitala [facility] HospitalComment on above:Performed By: #### CMP ####[facility] ([facility])[address] [address] VIR Chloride [Moles/Vol]108 mmol/OHfudbo12-163EooUhcoxl [facility]ers HospitalComment on above:Performed By: #### CMP ####[facility] ([facility])[address] [facility] [address] [address] VIRCO2 [Moles/Vol]27 mmol/QRcybbw10-21 ProMMercy Health [facility] Hospital HospitalComment on above:Performed By: #### CMP ####[facility] ([facility])[address] [address] VIR Creatinine [Mass/Vol]1.18 mg/dLHigh0.40-1.00ProGrand [facility] HospitalComment on above:Result Comment: METHOD TRACEABLE TO IDMS STANDARDPerformed By: #### CMP ####[facility] ([facility])[address] [address] VIRGFR/1.73 sq M.predicted among non-blacks MDRD (S/P/Bld) [Vol rate/Area] 47 mL/min/{1.73_m2}Low>=60ProGrand [facility] HospitalComment on above:Result Comment: Reported eGFR is based on theCKD-EPI 2020 equation that doesnot use a race coefficient.Performed By: #### CMP ####[facility] ([facility])[address] [address] VIRGlucose [Mass/Vol]81 mg/dLNormal 65-99Pro[facility] HospitalComment on above:Performed By: #### CMP ####[facility] ([facility])[address] [address] VIR Potassium [Moles/Vol]4.7 mmol/LNormal3.5-5.0Pro[facility] HospitalComment on above:Performed By: #### CMP ####[facility] ([facility])[address] [address] VIRProtein [Mass/Vol]5.8 g/dLLow6.0-8.0 ProMMercy Health Lorain Hospital HospitalComment on above:Performed By: #### CMP ####[facility] ([facility])[address] [facility] [address] [address] VIR Sodium [Moles/Vol]140 mmol/ACdqcfb497-828LpjOcjukk [facility]ers HospitalComment on above:Performed By: #### CMP ####[facility] ([facility])[address] [facility] [address] [address] VIRUrea nitrogen [Mass/Vol]23 mg/dLNormal5-27 [facility]ers HospitalComment on above:Performed By: #### CMP ####[facility] ([facility])[address] [facility] [address] [address] VIR MAGNESIUMon 12-97-1842Pctqzchbd [Mass/Vol]1.8 mg/dLNormal1.8-2.6ProMedica Childers HospitalComment on above:Performed By: #### MG ####[facility] ([facility])[address] [place] [address] VIRBEDSIDE GLUCOSEon 83-34-0289Sxfzmns [Mass/Vol]189 mg/mRZgze21-00HngRozxcs [facility] HospitalComment on above:Performed By: #### BEDG ####[facility] ([facility])[address] [place] [address] VIRGlucose [Mass/Vol]239 mg/dHHabi40-67NooHvvusz [facility] HospitalComment on above:Performed By: #### BEDG ####[facility] ([facility])[address] [place] [address] VIRGlucose [Mass/Vol]240 mg/cSAjcy48-46UkkPqkboo [facility] HospitalComment on above:Performed By: #### BEDG ####[facility] ([facility])[address] [place] [address] VIR Glucose [Mass/Vol]175 mg/gQQyhr23-38ThkDudekg [facility] HospitalComment on above: Performed By: #### BEDG ####[facility] ([facility])[address] [place] [address] VIRGlucose [Mass/Vol]135 mg/iRHzco15-38TjsRavsaw [facility] HospitalComment on above:Performed By: #### BEDG ####[facility] ([facility])[address] [place] [address] VIRCBC WITH AUTO DIFFERENTIALon 38-55-8821SDHZIIYDJ ABSOLUTE COUNT (10*3/UL) BY AUTOMATED COUNT0.0 10*3/uLNormal 0.0-0.2[facility] HospitalComment on above:Performed By: #### CBCA ####[facility] ([facility])[address] [address] VIRBASOPHILS RELATIVE PERCENT BY AUTOMATED COUNT0.4 %NormalProGrand Lake Joint [facility] Memorial Hospital HospitalComment on above:Performed By: #### CBCA ####[facility] ([facility])[address] [address] VIRCELLAVISION DIFFERENTIAL TYPEAUTOMATED DIFFERENTIALNormalProSumma Health Akron CampusComment on above:Performed By: #### CBCA ####[facility] ([facility])[address] [address] VIREosinophils (Bld) [#/Vol]0.4 10*3/uL Normal0.0-0.4ProGrand [facility] HospitalComment on above:Performed By: #### CBCA ####[facility] ([facility])[address] [address] VIREOSINOPHILS RELATIVE PERCENT BY AUTOMATED COUNT5.4 %NormalProGrand Lake [facility] Memorial [facility] HospitalComment on above:Performed By: #### CBCA ####[facility] ([facility])[address] [place] [address] VIRErythrocyte distribution width (RBC) [Ratio]17.9 %High11.5-15[facility] on above:Performed By: #### CBCA ####[facility] ([facility])[address], [place] [address] VIRHematocrit (Bld) [Volume fraction]20.9 %Qvd00-18UnoHtuksm [facility] HospitalComment on above:Performed By: #### CBCA ####[facility] ([facility])[address], [place] [address] VIRHemoglobin (Bld) [Mass/Vol]6.8 g/dLCritically low 11.7-15.5ProMedWay[facility] Hospital HospitalComment on above:Performed By: #### CBCA ####[facility] ([facility])[address], [place] [address] VIRLYMPHOCYTES ABSOLUTE COUNT (10*3/UL) BY AUTOMATED COUNT1.6 10*3/uL Normal1.0-3.5PKettering Health Greene Memorial HospitalComment on above:Performed By: #### CBCA ####[facility] ([facility])[address], [place] [address] VIRLYMPHOCYTES RELATIVE PERCENT BY AUTOMATED COUNT22.4 %NormalProGrand Lake Joint [facility] Hospital HospitalComment on above:Performed By: #### CBCA ####[facility] ([facility])[address], [place] [address] VIRMCH (RBC) [Entitic mass]27.7 mvOdbqbq35-90BivBarftw [facility] HospitalComment on above: Performed By: #### CBCA ####[facility] ([facility])[address], [place] [address] VIRMCHC (RBC) [Mass/Vol]32.7 g/hXDrpamc76-11 [facility] HospitalComment on above:Performed By: #### CBCA ####[facility] ([facility])[address], [place] [address] VIR MCV (RBC) [Entitic vol]85 yHVlynod09-216TywTahhro [facility] HospitalComment on above:Performed By: #### CBCA ####[facility] ([facility])[address], [place] [address] VIRMONOCYTES ABSOLUTE COUNT (10*3/UL) BY AUTOMATED COUNT0.7 10*3/uLNormal0.0-0.9Pro[facility] HospitalComment on above:Performed By: #### CBCA ####[facility] ([facility])[address], [place] [address] VIRMONOCYTES RELATIVE PERCENT BY AUTOMATED COUNT10.1 %NormalProMedica [facility] Fire HospitalComment on above:Performed By: #### CBCA ####[facility] ([facility])[address], [place] [address] VIRNEUTROPHILS ABSOLUTE COUNT BY AUTOMATED COUNT4.5 10*3/uL Normal1.5-6.6ProPomerene Hospitalca [facility] HospitalComment on above:Performed By: #### CBCA ####[facility] ([facility])[address], [place] [address] VIRNEUTROPHILS RELATIVE PERCENT BY AUTOMATED COUNT61.7 %NormalProPomerene Hospitalca [facility] HospitalComment on above:Performed By: #### CBCA ####[facility] ([facility])[address], [place] [address] VIRPlatelet mean volume (Bld) [Entitic vol]8.4 fLNormal7-12Pro[facility] HospitalComment on above:Performed By: #### CBCA ####[facility] ([facility])[address], [place] [address] VIRPlatelets (Bld) [#/Vol]187 10*3/uLNormal 150-450ProMedica Childers HospitalComment on above:Performed By: #### CBCA ####[facility] ([facility])[address], [place] [address] VIRRBC COUNT2.47 X10E12/LLow3.8-5.2[facility] HospitalComment on above:Performed By: #### CBCA ####[facility] ([facility])[address], [place] [address] VIRWBC (Bld) [#/Vol]7.3 10*3/uLNormal4-11 ProMMercy [facility] HospitalComment on above:Performed By: #### CBCA ####[facility] ([facility])[address], [place] [address] VIR COMPREHENSIVE METABOLIC PANELon 70-84-7690Mspgqos [Mass/Vol]2.8 g/dLLow3.2-5.3 [facility] HospitalComment on above:Performed By: #### CMP ####[facility] ([facility])[address] [address] VIRALP [Catalytic activity/Vol]109 U/[id number] [facility] HospitalComment on above:Performed By: #### CMP ####[facility] ([facility])[address] [address] VIRALT [Catalytic activity/Vol]U/LNormal<=31 [facility] HospitalComment on above:Performed By: #### CMP ####[facility] ([facility])[address] [address] VIR Anion gap [Moles/Vol]6 mmol/LNormal5-15ProPomerene Hospitalca [facility] HospitalComment on above:Performed By: #### CMP ####[facility] ([facility])[address] [address] VIRAST [Catalytic activity/Vol]15 U/LNormal <=41[facility] HospitalComment on above:Performed By: #### CMP ####[facility] ([facility])[address] [address] VIR Bilirubin [Mass/Vol]0.4 mg/dLNormal0.3-1.2PKettering Health Greene Memorial HospitalComment on above:Performed By: #### CMP ####[facility] ([facility])[address] [address] VIRCalcium [Mass/Vol]8.8 mg/dLNormal8.5-10.5 [facility] HospitalComment on above:Performed By: #### CMP ####[facility] ([facility])[address] [address] VIR Chloride [Moles/Vol]109 mmol/GGnpgdi79-695YwxCncney [place] HospitalComment on above:Performed By: #### CMP ####[facility] ([facility])[address] [facility] [address] [address] VIRCO2 [Moles/Vol]25 mmol/RWvljpk65-79 ProMMercy [facility] HospitalComment on above:Performed By: #### CMP ####[facility] ([facility])[address] [address] VIR Creatinine [Mass/Vol]1.26 mg/dLHigh0.40-1.00ProGrand [facility] HospitalComment on above:Result Comment: METHOD TRACEABLE TO IDMS STANDARDPerformed By: #### CMP ####[facility] ([facility])[address] [facility] [address] [address] VIRGFR/1.73 sq M.predicted among non-blacks MDRD (S/P/Bld) [Vol rate/Area] 43 mL/min/{1.73_m2}Low>=60ProGrand [facility] HospitalComment on above:Result Comment: Reported eGFR is based on theCKD-EPI 2020 equation that doesnot use a race coefficient.Performed By: #### CMP ####[facility] ([facility])[address] [facility] [address] [address] VIRGlucose [Mass/Vol]176 mg/dLHigh 65-99Pro[facility] HospitalComment on above:Performed By: #### CMP ####[facility] ([facility])[address] [address] VIR Potassium [Moles/Vol]4.1 mmol/LNormal3.5-5.0[facility] HospitalComment on above:Performed By: #### CMP ####[facility] ([facility])[address] [address] VIRProtein [Mass/Vol]5.5 g/dLLow6.0-8.0 [facility] HospitalComment on above:Performed By: #### CMP ####[facility] ([facility])[address] [address] VIR Sodium [Moles/Vol]140 mmol/SXqewbk607-049AmeRczjrx [place] HospitalComment on above:Performed By: #### CMP ####[facility] ([facility])[address] [address] VIRUrea nitrogen [Mass/Vol]27 mg/dLNormal5-27 [facility] HospitalComment on above:Performed By: #### CMP ####[facility] ([facility])[address] [address] VIR HEMOGLOBIN AND HEMATOCRIT, BLOODon 11-20-6095Owjfhqeite (Bld) [Volume fraction] 24.9 %Amk97-92PnkTtyccd [place] HospitalComment on above:Performed By: #### HH ####[facility] ([facility])[address], [place] [address] VIRHemoglobin (Bld) [Mass/Vol]8.2 g/dLLow11.7-15.5PKettering Health Greene Memorial HospitalComment on above:Performed By: #### HH ####[facility] ([facility])[address], [place] [address] VIRMAGNESIUMon 58-63-6908Hysctuvyz [Mass/Vol]1.9 mg/dLNormal1.8-2.6[facility] Hospital Comment on above:Performed By: #### MG ####[facility] ([facility])[address], [place] [address] VIRTYPE AND SCREENon 07-17-2025 ABO_INTEPONormalProPomerene Hospitalca [facility] Fire HospitalComment on above:Performed By: #### TSC ####[facility] ([facility])[address] [place] [address] VIR RH_INTEPNegativeNormalProPomerene Hospitalca [facility] HospitalComment on above:Performed By: #### TSC ####[facility] ([facility])[address] [place] [address] VIRBEDSIDE GLUCOSEon 55-30-0239Usistvz [Mass/Vol]186 mg/eBGohi13-73FjiFegbvs [place] HospitalComment on above:Performed By: #### BEDG ####[facility] ([facility])[address] [place] [address] VIRGlucose [Mass/Vol]199 mg/xOKgsv50-75MrmWqytyz [place] HospitalComment on above:Performed By: #### BEDG ####[facility] ([facility])[address] [place] [address] VIR Glucose [Mass/Vol]113 mg/cSWhpm07-95BngHlakwx [place] HospitalComment on above: Performed By: #### BEDG ####[facility] ([facility])[address] [place] [address] VIRGlucose [Mass/Vol]72 mg/oWStevac90-80YyjYogfek [place] HospitalComment on above:Performed By: #### BEDG ####[facility] ([facility])[address] [place] [address] VIRCBC WITH AUTO DIFFERENTIALon 99-34-4520Utja form neutrophils/100 WBC (Bld)3 %NormalBlanchard Valley Health System [facility]uffton [facility] Comment on above:Result Comment: This is an appended report. These results have been appended to a previously preliminary verified report.Performed By: #### CBCA ####[facility] ([facility])[address], [place] [address] VIRCELLAVISION BASOPHILS ABSOLUTE COUNT (10*3/UL) BY MANUAL COUNT0.1 10*3/uLNormal0.0-0.2ProMedica [facility] Fire HospitalComment on above:Result Comment: This is an appended report. These results have been appended to a previously preliminary verified report.Performed By: #### CBCA ####[facility] ([facility])[address], [place] [address] VIR CELLAVISION BASOPHILS RELATIVE PERCENT BY MANUAL COUNT1 %NormalProMedica Angel Fire HospitalComment on above:Result Comment: This is an appended report. These results have been appended to a previously preliminary verified report.Performed By: #### CBCA ####[facility] ([facility])[address], [place] [address] VIRCELLAVISION DIFFERENTIAL TYPEMANUAL DIFFERENTIALNormal [facility]ica [facility] HospitalComment on above:Result Comment: This is an appended report. These results have been appended to a previously preliminary verified report.Performed By: #### CBCA ####[facility] ([facility])[address], [place] [address] VIRCELLAVISION EOSINOPHILS ABSOLUTE COUNT (10*3/UL) BY MANUAL COUNT0.5 10*3/uLHigh0.0-0.4Pro[facility]ica [facility] HospitalComment on above:Result Comment: This is an appended report. These results have been appended to a previously preliminary verified report.Performed By: #### CBCA ####[facility] ([facility])[address], [place] [address] VIRCELLAVISION EOSINOPHILS PERCENT BY MANUAL COUNT5 %NormalProMedica Angel Fire HospitalComment on above:Result Comment: This is an appended report. These results have been appended to a previously preliminary verified report. Performed By: #### CBCA ####[facility] ([facility])[address], [place] [address] VIRCELLAVISION LYMPHOCYTES ABSOLUTE COUNT (10*3/UL) BY MANUAL COUNT1.5 10*3/uLNormal1.0-3.5PMercy Health Lorain Hospital Comment on above:Result Comment: This is an appended report. These results have been appended to a previously preliminary verified report.Performed By: #### CBCA ####[facility] ([facility])[address], [place] [address] VIRCELLAVISION LYMPHOCYTES RELATIVE PERCENT BY MANUAL COUNT 17 %NormalProSumma Health Akron CampusComment on above:Result Comment: This is an appended report. These results have been appended to a previously preliminary verified report.Performed By: #### CBCA ####[facility] ([facility])[address], [place] [address] VIRCELLAVISION MONOCYTES ABSOLUTE COUNT (10*3/UL) IN BLOOD BY MANUAL COUNT0.7 10*3/uLNormal0.0-0.9ProSumma Health Akron CampusComment on above:Result Comment: This is an appended report. These results have been appended to a previously preliminary verified report.Performed By: #### CBCA ####[facility] ([facility])[address], [place] [address] VIRCELLAVISION MONOCYTES RELATIVE PERCENT BY MANUAL COUNT8 %NormalBlanchard Valley Health System Bluffton HospitalComment on above:Result Comment: This is an appended report. These results have been appended to a previously preliminary verified report.Performed By: #### CBCA ####[facility] ([facility])[address], [place] [address] VIRCELLAVISION MYELOCYTE RELATIVE PERCENT BY MANUAL COUNT1 %NormalProSumma Health Akron CampusComfresenius medical care at [facility] on above:Result Comment: This is an appended report. These results have been appended to a previously preliminary verified report.Performed By: #### CBCA ####[facility] ([facility])[address], [place] [address] VIR CELLAVISION NEUTROPHILS ABSOLUTE COUNT BY MANUAL COUNT6.2 10*3/uLNormal1.5-6.6 [facility] HospitalComment on above:Result Comment: This is an appended report. These results have been appended to a previously preliminary verified report.Performed By: #### CBCA ####[facility] ([facility])[address], [place] [address] VIRCELLAVISION NEUTROPHILS RELATIVE PERCENT BY MANUAL COUNT67 %NormalProSumma Health Akron CampusComfresenius medical [facility] on above:Result Comment: This is an appended report. These results have been appended to a previously preliminary verified report.Performed By: #### CBCA ####[facility] ([facility])[address], [place] [address] VIR CELLAVISION NUCLEATED RED BLOOD CELLS IN BLOOD BY LIGHT FZZPOHADOV5Vkncxg [facility]uff[facility] HospitalComfresenius medical [facility] on above:Result Comment: This is an appended report. These results have been appended to a previously preliminary verified report.Performed By: #### CBCA ####[facility] ([facility])[address], [place] [address] VIRCELLAVISION RBC MORPHOLOGYNormalNormal [facility] HospitalComfresenius medical [facility] on above:Result Comment: This is an appended report. These results have been appended to a previously preliminary verified report.Performed By: #### CBCA ####[facility] ([facility])[address], [place] [address] VIRErythrocyte distribution width (RBC) [Ratio]17.5 %High11.5-15ProGrand [facility] HospitalComment on above:Performed By: #### CBCA ####[facility] ([facility])[address], [place] [address] VIRHematocrit (Bld) [Volume fraction]22.9 %Fqb65-51WnaEmraba [place] HospitalComment on above:Performed By: #### CBCA ####[facility] ([facility])[address], [place] [address] VIRHemoglobin (Bld) [Mass/Vol]7.6 g/dLLow11.7-15.5PKettering Health Greene Memorial HospitalComment on above: Performed By: #### CBCA ####[facility] ([facility])[address], [place] [address] VIRMCH (RBC) [Entitic mass]27.8 liDtqohs84-29 ProMMercy [facility] HospitalComment on above:Performed By: #### CBCA ####[facility] ([facility])[address] [facility] [address], [place] [address] VIR MCHC (RBC) [Mass/Vol]33.0 g/gTTwffdk45-40XjvUonrxp [facility] HospitalComment on above:Performed By: #### CBCA ####[facility] ([facility])[address] [facility] [address], [place] [address] VIRMCV (RBC) [Entitic vol]84 gIPehkri65-985 ProMMercy [facility] HospitalComment on above:Performed By: #### CBCA ####[facility] ([facility])[address], [place] [address] VIR Platelet mean volume (Bld) [Entitic vol]8.3 fLNormal7-12PKettering Health Greene Memorial HospitalComment on above:Performed By: #### CBCA ####[facility] ([facility])[address] [facility] [address], [place] [address] VIRPlatelets (Bld) [#/Vol]181 10*3/wTAmbgsy162-527ZzmXtvwrb [facility] HospitalComment on above: Performed By: #### CBCA ####[facility] ([facility])[address] [address], [place] [address] VIRRBC COUNT2.72 X10E12/LLow3.8-5.2PKettering Health Greene Memorial HospitalComment on above:Performed By: #### CBCA ####[facility] ([facility])[address], [place] [address] VIRWBC (Bld) [#/Vol]9.0 10*3/uLNormal4-11Pro[facility]ers HospitalComment on above:Performed By: #### CBCA ####[facility] ([facility])[address], [place] [address] VIRCOMPREHENSIVE METABOLIC PANELon 57-72-7941Wdkvvgv [Mass/Vol]3.1 g/dLLow3.2-5.3[facility] HospitalComment on above:Performed By: #### CMP ####[facility] ([facility])[address] [address] VIRALP [Catalytic activity/Vol]111 U/MEayxue58-608NxiTbngaa [facility]ers HospitalComment on above:Performed By: #### CMP ####[facility] ([facility])[address] [address] VIRALT [Catalytic activity/Vol]U/LNormal<=31[facility] HospitalComment on above:Performed By: #### CMP ####[facility] ([facility])[address] [address] VIRAnion gap [Moles/Vol]7 mmol/LNormal5-15ProPomerene Hospitalca [facility] HospitalComment on above:Performed By: #### CMP ####[facility] ([facility])[address] [address] VIRAST [Catalytic activity/Vol]18 U/LNormal<=41[facility] HospitalComment on above:Performed By: #### CMP ####[facility] ([facility])[address] [address] VIRBilirubin [Mass/Vol]0.4 mg/dLNormal0.3-1.2ProMedWay[facility] Hospital HospitalComment on above:Performed By: #### CMP ####[facility] ([facility])[address] [address] VIRCalcium [Mass/Vol]8.9 mg/dLNormal8.5-10.5PKettering Health Greene Memorial HospitalComment on above:Performed By: #### CMP ####[facility] ([facility])[address] [address] VIRChloride [Moles/Vol]107 mmol/FWvrvgn79-891KsqGqmlcu [place] HospitalComment on above:Performed By: #### CMP ####[facility] ([facility])[address] [address] VIRCO2 [Moles/Vol]26 mmol/SGnhaui26-84HfgAeeambMercy Health Lorain HospitalComment on above:Performed By: #### CMP ####[facility] ([facility])[address], [place] [address] VIRCreatinine [Mass/Vol]1.51 mg/dLHigh0.40-1.00ProSumma Health Akron CampusComment on above:Result Comment: METHOD TRACEABLE TO IDMS STANDARD Performed By: #### CMP ####[facility] ([facility])[address] [address] VIRGFR/1.73 sq M.predicted among non-blacks MDRD (S/P/Bld) [Vol rate/Area]35 mL/min/{1.73_m2}Low>=60ProSum[facility] Comment on above:Result Comment: Reported eGFR is based on theCKD-EPI 2020 equation that doesnot use a race coefficient.Performed By: #### CMP ####[facility] ([facility])[address] [address] VIR Glucose [Mass/Vol]82 mg/nTYgxaoz95-17SooXlmqey [place] HospitalComment on above: Performed By: #### CMP ####[facility] ([facility])[address] [address] VIRPotassium [Moles/Vol]4.7 mmol/LNormal3.5-5.0 [facility] HospitalComment on above:Performed By: #### CMP ####[facility] ([facility])[address] [facility] [address] [address] VIR Protein [Mass/Vol]6.1 g/dLNormal6.0-8.0ProPomerene Hospitalca [facility] HospitalComment on above:Performed By: #### CMP ####[facility] ([facility])[address] [facility] [address] [address] VIRSodium [Moles/Vol]140 mmol/LNnbfbr162-229 [facility]MM[facility] HospitalComment on above:Performed By: #### CMP ####[facility] ([facility])[address] [facility] [address] [address] VIR Urea nitrogen [Mass/Vol]31 mg/dLHigh5-27ProPomerene Hospitalca [facility] HospitalComment on above:Performed By: #### CMP ####[facility] ([facility])[address],[place] [address] VIRLACTATE W/ REFLEXon 12-97-4584MQZQDWZ W/REFLEX1.0 mmol/LNormal0.4-2.0ProGrand [facility] HospitalComment on above:Order Comment: Result did not trigger repeat Lactate,re-order if needed.Performed By: #### LACTS ####[facility] ([facility])[address] [facility] [address], [place] [address] VIRMAGNESIUMon 53-62-7552Fzkpnadnv [Mass/Vol]2.0 mg/dLNormal 1.8-2.6ProPomerene Hospitalca [facility] HospitalComment on above:Performed By: #### MG ####[facility] ([facility])[address] [facility] [address], [place] [address] VIRBEDSIDE GLUCOSEon 09-64-7585Wdxzejg [Mass/Vol]223 mg/qYZjzi58-99 ProMMercy [facility] HospitalComment on above:Performed By: #### BEDG ####[facility] ([facility])[address] [place] [address] VIRGlucose [Mass/Vol]246 mg/oBRxue86-19HcpOcuhrq [facility] HospitalComment on above:Performed By: #### BEDG ####[facility] ([facility])[address] [place] [address] VIRGlucose [Mass/Vol]198 mg/tJJwgr67-68BdbRlkqnf [facility] HospitalComment on above:Performed By: #### BEDG ####[facility] ([facility])[address] [facility] [facility] [place] [place] [address] VIRGlucose [Mass/Vol]135 mg/kKYfco49-43HuqXqabmw [facility] HospitalComment on above:Performed By: #### BEDG ####[facility] ([facility])[address] [facility] [place] [place] [address] VIRCBC WITH AUTO DIFFERENTIALon 19-05-1759RDIFPWEGQ ABSOLUTE COUNT (10*3/UL) BY AUTOMATED COUNT0.0 10*3/uLNormal 0.0-0.2Pro[facility]ica [facility] HospitalComment on above:Performed By: #### CBCA ####[facility] ([facility])[address] [facility] [address], [place] [address] VIRBASOPHILS RELATIVE PERCENT BY AUTOMATED COUNT0.3 %NormalProGrand Lake Joint [facility] HospitalComment on above:Performed By: #### CBCA ####[facility] ([facility])[address] [facility] [address], [place] [address] VIRCELLAVISION DIFFERENTIAL TYPEAUTOMATED DIFFERENTIALNormalProPomerene Hospitalca [facility] HospitalComment on above:Performed By: #### CBCA ####[facility] ([facility])[address] [facility] [address], [place] [address] VIREosinophils (Bld) [#/Vol]0.2 10*3/uL Normal0.0-0.4Pro[facility]ica [facility] HospitalComment on above:Performed By: #### CBCA ####[facility] ([facility])[address], [place] [address] VIREOSINOPHILS RELATIVE PERCENT BY AUTOMATED COUNT2.0 %NormalProGrand Lake Joint [facility] HospitalComment on above:Performed By: #### CBCA ####[facility] ([facility])[address], [place] [address] VIRErythrocyte distribution width (RBC) [Ratio]17.4 %High11.5-15Pro[facility] Hospital Comment on above:Performed By: #### CBCA ####[facility] ([facility])[address], [place] [address] VIRHematocrit (Bld) [Volume fraction]22.1 %Psz97-52QtnParzju [place] HospitalComment on above:Performed By: #### CBCA ####[facility] ([facility])[address], [place] [address] VIRHemoglobin (Bld) [Mass/Vol]7.3 g/dLLow11.7-15.5PKettering Health Greene Memorial HospitalComment on above:Performed By: #### CBCA ####[facility] ([facility])[address], [place] [address] VIRLYMPHOCYTES ABSOLUTE COUNT (10*3/UL) BY AUTOMATED COUNT1.6 10*3/uLNormal1.0-3.5PKettering Health Greene Memorial HospitalComment on above:Performed By: #### CBCA ####[facility] ([facility])[address], [place] [address] VIRLYMPHOCYTES RELATIVE PERCENT BY AUTOMATED COUNT20.5 %NormalProGrand Lake Joint [facility] Memorial Hospital HospitalComment on above:Performed By: #### CBCA ####[facility] ([facility])[address], [place] [address] VIRMCH (RBC) [Entitic mass]27.6 pg Urglri48-81VjnVdawff [place] HospitalComment on above:Performed By: #### CBCA ####[facility] ([facility])[address], [place] [address] VIRMCHC (RBC) [Mass/Vol]32.9 g/eORysgug25-20UtbYzzkki [facility] [facility] on above:Performed By: #### CBCA ####[facility] ([facility])[address], [place] [address] VIRMCV (RBC) [Entitic vol]84 fL Exjaok14-460XwsLrmrwf [facility] HospitalComment on above:Performed By: #### CBCA ####[facility] ([facility])[address], [place] [address] VIRMONOCYTES ABSOLUTE COUNT (10*3/UL) BY AUTOMATED COUNT0.9 10*3/uLNormal 0.0-0.9ProGrand [facility] HospitalComment on above:Performed By: #### CBCA ####[facility] ([facility])[address], [place] [address] VIRMONOCYTES RELATIVE PERCENT BY AUTOMATED COUNT11.1 %NormalProGrand [facility] HospitalComment on above:Performed By: #### CBCA ####[facility] ([facility])[address], [place] [address] VIRNEUTROPHILS ABSOLUTE COUNT BY AUTOMATED COUNT5.2 10*3/uLNormal1.5-6.6Pro[facility] HospitalComment on above:Performed By: #### CBCA ####[facility] ([facility])[address], [place] [address] VIRNEUTROPHILS RELATIVE PERCENT BY AUTOMATED COUNT66.1 %NormalProGrand [facility] HospitalComment on above: Performed By: #### CBCA ####[facility] ([facility])[address], [place] [address] VIRPlatelet mean volume (Bld) [Entitic vol]8.1 fLNormal7-12[facility] HospitalComment on above:Performed By: #### CBCA ####[facility] ([facility])[address], [place] [address] VIRPlatelets (Bld) [#/Vol]168 10*3/tNPahoec537-485SxpXsudmb Childers HospitalComment on above:Performed By: #### CBCA ####[facility] ([facility])[address], [place] [address] VIRRBC COUNT2.63 X10E12/LLow3.8-5.2[facility] HospitalComment on above:Performed By: #### CBCA ####[facility] ([facility])[address], [place] [address] VIRWBC (Bld) [#/Vol]7.8 10*3/uLNormal4-11ProMedica Childers HospitalComment on above:Performed By: #### CBCA ####[facility] ([facility])[address], [place] [address] VIRCOMPREHENSIVE METABOLIC PANELon 97-46-3434Txuyslu [Mass/Vol]3.0 g/dLLow3.2-5.3[facility] HospitalComment on above:Performed By: #### CMP ####[facility] ([facility])[address] [address] VIRALP [Catalytic activity/Vol]104 U/GSrwzlb17-910AcyOtulkv Childers HospitalComment on above: Performed By: #### CMP ####[facility] ([facility])[address] [address] VIRALT [Catalytic activity/Vol]U/LNormal<=31 Pro[facility] Childers HospitalComment on above:Performed By: #### CMP ####[facility] ([facility])[address] [address] VIR Anion gap [Moles/Vol]6 mmol/LNormal5-15ProMedica Childers HospitalComment on above:Performed By: #### CMP ####[facility] ([facility])[address] [address] VIRAST [Catalytic activity/Vol]18 U/LNormal <=41ProPomerene Hospitalca [facility] Fire HospitalComment on above:Performed By: #### CMP ####[facility] ([facility])[address] [address] VIR Bilirubin [Mass/Vol]0.3 mg/dLNormal0.3-1.2[facility] Fire HospitalComment on above:Performed By: #### CMP ####[facility] ([facility])[address] [address] VIRCalcium [Mass/Vol]8.3 mg/dLLow8.5-10.5 [facility] HospitalComment on above:Performed By: #### CMP ####[facility] ([facility])[address] [address] VIR Chloride [Moles/Vol]105 mmol/ZYmlmlm04-118NxkYsllka [place] HospitalComment on above:Performed By: #### CMP ####[facility] ([facility])[address] [address] VIRCO2 [Moles/Vol]28 mmol/FUujodg06-82 ProMMer[facility] HospitalComment on above:Performed By: #### CMP ####[facility] ([facility])[address] [address] VIR Creatinine [Mass/Vol]1.91 mg/dLHigh0.40-1.00ProPomerene Hospitalca [facility] HospitalComment on above:Result Comment: METHOD TRACEABLE TO IDMS STANDARDPerformed By: #### CMP ####[facility] ([facility])[address] [address] VIRGFR/1.73 sq M.predicted among non-blacks MDRD (S/P/Bld) [Vol rate/Area] 26 mL/min/{1.73_m2}Low>=60ProMedica Childers HospitalComment on above:Result Comment: Reported eGFR is based on theCKD-EPI 2020 equation that doesnot use a race coefficient.Performed By: #### CMP ####[facility] ([facility])[address] [address] VIRGlucose [Mass/Vol]134 mg/dLHigh 65-99Pro[facility] HospitalComment on above:Performed By: #### CMP ####[facility] ([facility])[address] [address] VIR Potassium [Moles/Vol]4.4 mmol/LNormal3.5-5.0ProPomerene Hospitalca [facility] HospitalComment on above:Performed By: #### CMP ####[facility] ([facility])[address] [address] VIRProtein [Mass/Vol]5.8 g/dLLow6.0-8.0 [facility] HospitalComment on above:Performed By: #### CMP ####[facility] ([facility])[address] [address] VIR Sodium [Moles/Vol]139 mmol/LUoajqm023-181CrjLbbiof [facility] HospitalComment on above:Performed By: #### CMP ####[facility] ([facility])[address] [address] VIRUrea nitrogen [Mass/Vol]35 mg/dLHigh5-27 [facility] HospitalComment on above:Performed By: #### CMP ####[facility] ([facility])[address] [address] VIR MAGNESIUMon 20-11-7759Orqqneibv [Mass/Vol]2.0 mg/dLNormal1.8-2.6ProPomerene Hospitalca [facility] HospitalComment on above:Performed By: #### MG ####[facility] ([facility])[address] [facility] [address], [place] [address] VIRMICROALBUMIN / CREATININE URINE RATIOon 02-17-8679Gaetful DL <= 20 mg/L (U) [Mass/Vol]12.4 mg/dLHigh0.0-1.9ProMedica Childers HospitalComment on above:Performed By: #### MALBU ####[facility] ([facility])[address] [facility] [address], [place] [address] VIRMALB/CREAT RFBCF335.9 mg/gHigh0.0-30.0ProMedica Childers HospitalComment on above:Performed By: #### MALBU ####[facility] ([facility])[address] [facility] [address], [place] [address] VIRURINE CREATININE,RDM 87.37 mg/dLNormalProMedica Childers HospitalComment on above:Performed By: #### MALBU ####[facility] ([facility])[address] [facility] [address] [address] VIRMRSA PCR NASAL SWABon 52-34-4598OMGI PCR NASAL SWAB NegativeNormalNegativeProMedica Childers HospitalComment on above:Performed By: #### MRSPCR ####[facility] ([facility])[address] [facility] [address], [place] [address] VIRSODIUM, URINE, RANDOMon 62-44-5434Txtzzr (U) [Moles/Vol] 33 mmol/LNormalProMedica Childers HospitalComment on above:Performed By: #### UNAR ####[facility] ([facility])[address] [facility] [address], [place] [address] VIRURINALYSISon 52-33-5947Ptvithqxu Ql (U)NegativeNormalNegativeProMedica Childers HospitalComment on above:Performed By: #### UA ####[facility] ([facility])[address] [facility] [address], [place] [address] VIRBLOOD/HGB ModerateAbnormalNegativeProMedica Childers HospitalComment on above:Performed By: #### UA ####[facility] ([facility])[address], [place] [address] VIRColor (U)YellowNormalYellowProMedica [facility] on above:Performed By: #### UA ####[facility] ([facility])[address], [place] [address] VIRGlucose Ql (U)NegativeNormal NegativeProMedica Angel Fire HospitalComment on above:Performed By: #### UA ####[facility] ([facility])[address], [place] [address] VIRKetones Ql (U)NegativeNormalNegativeProMedica Angel Fire HospitalComment on above:Performed By: #### UA ####[facility] ([facility])[address], [place] [address] VIRLeukocyte esterase Test strip Ql (U)Large AbnormalNegativeProMedica Angel Fire HospitalComment on above:Performed By: #### UA ####[facility] ([facility])[address], [place] [address] VIRNitrite Ql (U)NegativeNormalNegativeProMedica Angel Fire HospitalComment on above:Performed By: #### UA ####[facility] ([facility])[address], [place] [address] VIRPH,URINE6.2Kcyfbf0.0-8.5Pro[facility] HospitalComment on above:Performed By: #### UA ####[facility] ([facility])[address], [place] [address] VIRProtein Ql (U)70 mg/dLAbnormalNegativeProMedica Angel Fire HospitalComment on above:Performed By: #### UA ####[facility] ([facility])[address], [place] [address] VIRR.B.DXAFU21Swlc8-9NvoOrmxkm Childers HospitalComment on above:Performed By: #### UA ####[facility] ([facility])[address], [place] [address] VIRSpecific gravity (U) [Rel density]1.017 Normal1.003-1.035ProMedica Childers HospitalComment on above:Performed By: #### UA ####[facility] ([facility])[address], [place] [address] VIRSQUAMOUS EPITHELIUM>^81Htii9-0GjqSmjeuy Childers HospitalComment on above:Performed By: #### UA ####[facility] ([facility])[address], [place] [address] VIRTRANSITIONAL GXDZP0Hlqc<=0ProMedica Childers HospitalComment on above:Performed By: #### UA ####[facility] ([facility])[address], [place] [address] VIRTURBIDITYCloudy AbnormalClearProMedica Childers HospitalComment on above:Performed By: #### UA ####[facility] ([facility])[address], [place] [address] VIRUROBILINOGEN<1.1 eu/dLNormal<1.1 eu/dLProMedica Childers HospitalComment on above:Performed By: #### UA ####[facility] ([facility])[address], [place] [address] VIRW.B.LLOAF938Adym8-9SsoRpwboj Childers HospitalComment on above:Performed By: #### UA ####[facility] ([facility])[address], [place] [address] VIRWBC CLUMPSFew AbnormalNoneProMedica Childers HospitalComment on above:Performed By: #### UA ####[facility] ([facility])[address], [place] [address] VIRURINE CREATININE,RANDOMon 64-71-9947EIYJD CREATININE,RDM87.00 mg/dL NormalProMedica Angel Fire HospitalComment on above:Performed By: #### UCRR ####[facility] ([facility])[address] [facility] [address], [place] [address] VIRURINE CULTUREon 74-98-3947Zxbflcwc identified Cx Nom (U)CULTURE RESULTS 10-50,000 ORGANISMS/mL NORMAL UROGENITAL FLORANormalProPomerene Hospitalca [facility] Comment on above:Performed By: #### UC ####[facility] ([facility])[address] [address], [place] [address] VIRAPTTon 00-29-8002NZHHBFW APTT CancelledNormalProPomerene Hospitalca [facility] Fire HospitalComment on above:Order Comment: Marti Sheffield RN at 1646B-TYPE NATRIURETIC PEPTIDEon 11-51-8983W-TYPE NATRIURETIC PEPTIDE BNP B-TYPE NATRIURETIC PEPTIDE CancelledNormalProPomerene Hospitalca [facility] Fire HospitalComment on above:Order Comment: BNP OUT OF STABILITY, TUBE NEVER RECEIVED IN CHEMISTRY BEDSIDE GLUCOSEon 81-22-6179Qbggkdy [Mass/Vol]328 mg/lCAnna23-88WmjGcjqke [facility] HospitalComment on above:Performed By: #### BEDG ####[facility] ([facility])[address] [place] [address] VIRGlucose [Mass/Vol]347 mg/uPVsnq16-49 [facility] HospitalComment on above:Performed By: #### BEDG ####[facility] ([facility])[address] [place] [address] VIRGlucose [Mass/Vol]244 mg/zVKphl65-67NqtVqqmjq [facility] HospitalComment on above:Performed By: #### BEDG ####[facility] ([facility])[address] [place] [address] VIRGlucose [Mass/Vol]223 mg/kQPrwj22-56MjvCmfcwz [facility] HospitalComment on above:Performed By: #### BEDG ####[facility] ([facility])[address] [facility] [address] VIRBLOOD CULTUREon [id number] identified Cx Nom (Bld)CULTURE RESULTS NO GROWTH 5 DAYSNormalProSumma Health Akron CampusComment on above:Order Comment: *SIRS Criteria: (must display 2 without other explanation)-Temperature < 36 or >38-Pulse >90-Resp rate >20-WBC less than 4K or greater than 12KRepeat blood cultures not needed:-To document that a blood culture is a contaminant when 1 of 2 bottles is positive for a common contaminant (already listed in [facility] with the culture result)-To document clearance of gram negative bacteremia in patients with suspected urinary source who are improvingPerformed By: #### BC ####[facility] ([facility])[address] [address] VIROrder Comment: *SIRS Criteria: (must display 2 without [...] volume of blood collected, results may be affected.CBC WITH AUTO DIFFERENTIALon 07-14-2025 BASOPHILS ABSOLUTE COUNT (10*3/UL) BY AUTOMATED COUNT0.0 10*3/uLNormal0.0-0.2 [facility] HospitalComment on above:Performed By: #### CBCA ####[facility] ([facility])[address] [address] VIR BASOPHILS RELATIVE PERCENT BY AUTOMATED COUNT0.2 %NormalProSumma Health Akron CampusComment on above:Performed By: #### CBCA ####[facility] ([facility])[address] [facility] [address] [address] VIRCELLAVISION DIFFERENTIAL TYPEAUTOMATED DIFFERENTIALNoSelect Medical OhioHealth Rehabilitation Hospital - DublinComment on above:Performed By: #### CBCA ####[facility] ([facility])[address], [place] [address] VIREosinophils (Bld) [#/Vol]0.0 10*3/uL Normal0.0-0.4[facility] HospitalComment on above:Performed By: #### CBCA ####[facility] ([facility])[address], [place] [address] VIREOSINOPHILS RELATIVE PERCENT BY AUTOMATED COUNT0.1 %NormalProGrand [facility] Joint [facility] HospitalComment on above:Performed By: #### CBCA ####[facility] ([facility])[address], [place] [address] VIRErythrocyte distribution width (RBC) [Ratio]18.2 %High11.5-15ProGrand [facility] Joint [facility] Hospital [facility] on above:Performed By: #### CBCA ####[facility] ([facility])[address], [place] [address] VIRHematocrit (Bld) [Volume fraction]20.1 %Ink45-99BmqGslwbk [place] HospitalComment on above:Performed By: #### CBCA ####[facility] ([facility])[address], [place] [address] VIRHemoglobin (Bld) [Mass/Vol]6.4 g/dLCritically low 11.7-15.5PKettering Health Greene Memorial HospitalComment on above:Performed By: #### CBCA ####[facility] ([facility])[address], [place] [address] VIRLYMPHOCYTES ABSOLUTE COUNT (10*3/UL) BY AUTOMATED COUNT1.4 10*3/uL Normal1.0-3.5PKettering Health Greene Memorial HospitalComment on above:Performed By: #### CBCA ####[facility] ([facility])[address], [place] [address] VIRLYMPHOCYTES RELATIVE PERCENT BY AUTOMATED COUNT17.2 %NormalProAvita Health System Ontario Hospitalo HospitalComment on above:Performed By: #### CBCA ####[facility] ([facility])[address], [place] [address] VIRMCH (RBC) [Entitic mass]26.7 evOfj56-23VstKosuxt Childers HospitalComment on above:Performed By: #### CBCA ####[facility] ([facility])[address], [place] [address] VIRMCHC (RBC) [Mass/Vol]32.0 g/cISwdvdv34-42IvgXvapsh Childers HospitalComment on above:Performed By: #### CBCA ####[facility] ([facility])[address], [place] [address] VIRMCV (RBC) [Entitic vol]83 bYIfuplf55-224YomDzlfpn Childers HospitalComment on above:Performed By: #### CBCA ####[facility] ([facility])[address], [place] [address] VIRMONOCYTES ABSOLUTE COUNT (10*3/UL) BY AUTOMATED COUNT0.9 10*3/uLNormal0.0-0.9Pro[facility]ers HospitalComment on above:Performed By: #### CBCA ####[facility] ([facility])[address], [place] [address] VIRMONOCYTES RELATIVE PERCENT BY AUTOMATED COUNT10.6 %Normal [facility] HospitalComment on above:Performed By: #### CBCA ####[facility] ([facility])[address], [place] [address] VIR NEUTROPHILS ABSOLUTE COUNT BY AUTOMATED COUNT5.9 10*3/uLNormal1.5-6.6Pro[facility] Childers HospitalComment on above:Performed By: #### CBCA ####[facility] ([facility])[address], [place] [address] VIRNEUTROPHILS RELATIVE PERCENT BY AUTOMATED COUNT71.9 %NormalProMedica Childers HospitalComment on above:Performed By: #### CBCA ####[facility] ([facility])[address], [place] [address] VIRPlatelet mean volume (Bld) [Entitic vol]8.4 fLNormal7-12Pro[facility]ers HospitalComment on above:Performed By: #### CBCA ####[facility] ([facility])[address], [place] [address] VIRPlatelets (Bld) [#/Vol]172 10*3/vNNdztjt856-847TmpHtfbtr Childers HospitalComment on above:Performed By: #### CBCA ####[facility] ([facility])[address], [place] [address] VIRRBC COUNT2.42 X10E12/LLow3.8-5.2Pro[facility]ers HospitalComment on above:Performed By: #### CBCA ####[facility] ([facility])[address], [place] [address] VIRWBC (Bld) [#/Vol]8.2 10*3/uLNormal4-11Pro[facility]ers HospitalComment on above:Performed By: #### CBCA ####[facility] ([facility])[address], [place] [address] VIRBASOPHILS ABSOLUTE COUNT (10*3/UL) BY AUTOMATED COUNT0.0 10*3/uLNormal0.0-0.2Pro[facility]ers HospitalComment on above:Performed By: #### CBCA ####[facility] ([facility])[address], [place] [address] VIRBASOPHILS RELATIVE PERCENT BY AUTOMATED COUNT0.1 %NormalProMedica Childers HospitalComment on above: Performed By: #### CBCA ####[facility] ([facility])[address], [place] [address] VIRCELLAVISION DIFFERENTIAL TYPEAUTOMATED DIFFERENTIALNormalProGrand [facility] HospitalComment on above:Performed By: #### CBCA ####[facility] ([facility])[address], [place] [address] VIREosinophils (Bld) [#/Vol]0.0 10*3/uLNormal0.0-0.4 [facility] HospitalComment on above:Performed By: #### CBCA ####[facility] ([facility])[address], [place] [address] VIR EOSINOPHILS RELATIVE PERCENT BY AUTOMATED COUNT0.0 %NormalProGrand [facility] HospitalComment on above:Performed By: #### CBCA ####[facility] ([facility])[address], [place] [address] VIRErythrocyte distribution width (RBC) [Ratio]17.8 %High11.5-15ProGrand [facility] Hospital Comment on above:Performed By: #### CBCA ####[facility] ([facility])[address], [place] [address] VIRHematocrit (Bld) [Volume fraction]22.3 %Jey46-73VrrVcxttn [place] HospitalComment on above:Performed By: #### CBCA ####[facility] ([facility])[address], [place] [address] VIRHemoglobin (Bld) [Mass/Vol]7.5 g/dLLow11.7-15.5ProMedWay[facility] Hospital HospitalComment on above:Performed By: #### CBCA ####[facility] ([facility])[address], [place] [address] VIRLYMPHOCYTES ABSOLUTE COUNT (10*3/UL) BY AUTOMATED COUNT1.2 10*3/uLNormal1.0-3.5PKettering Health Greene Memorial HospitalComment on above:Performed By: #### CBCA ####[facility] ([facility])[address], [place] [address] VIRLYMPHOCYTES RELATIVE PERCENT BY AUTOMATED COUNT14.3 %NormalProMedica Angel Fire HospitalComment on above:Performed By: #### CBCA ####[facility] ([facility])[address], [place] [address] VIRMCH (RBC) [Entitic mass]27.1 pg Waudls18-58UbrYerlcx [facility] HospitalComment on above:Performed By: #### CBCA ####[facility] ([facility])[address], [place] [address] VIRMCHC (RBC) [Mass/Vol]33.4 g/pKQmokvi49-15NrtZmuncq [place] [facility] Comment on above:Performed By: #### CBCA ####[facility] ([facility])[address] [facility] [address], [place] [address] VIRMCV (RBC) [Entitic vol]81 fL Ywqkhr06-517HlzKkejag [facility] HospitalComment on above:Performed By: #### CBCA ####[facility] ([facility])[address], [place] [address] VIRMONOCYTES ABSOLUTE COUNT (10*3/UL) BY AUTOMATED COUNT1.0 10*3/uLHigh 0.0-0.9[facility] Fire HospitalComment on above:Performed By: #### CBCA ####[facility] ([facility])[address], [place] [address] VIRMONOCYTES RELATIVE PERCENT BY AUTOMATED COUNT11.6 %NormalProMedica Angel Fire HospitalComment on above:Performed By: #### CBCA ####[facility] ([facility])[address], [place] [address] VIRNEUTROPHILS ABSOLUTE COUNT BY AUTOMATED COUNT6.4 10*3/uLNormal1.5-6.6Pro[facility] Childers HospitalComment on above:Performed By: #### CBCA ####[facility] ([facility])[address], [place] [address] VIRNEUTROPHILS RELATIVE PERCENT BY AUTOMATED COUNT74.0 %NormalProGrand [facility] HospitalComment on above: Performed By: #### CBCA ####[facility] ([facility])[address], [place] [address] VIRPlatelet mean volume (Bld) [Entitic vol]8.3 fLNormal7-12PKettering Health Greene Memorial HospitalComment on above:Performed By: #### CBCA ####[facility] ([facility])[address], [place] [address] VIRPlatelets (Bld) [#/Vol]167 10*3/yFCqrpuu624-616GkqHzqycb [place] HospitalComment on above:Performed By: #### CBCA ####[facility] ([facility])[address], [place] [address] VIRRBC COUNT2.75 X10E12/LLow3.8-5.2PKettering Health Greene Memorial HospitalComment on above:Performed By: #### CBCA ####[facility] ([facility])[address], [place] [address] VIRWBC (Bld) [#/Vol]8.6 10*3/uLNormal4-11ProGrand [facility] HospitalComment on above:Performed By: #### CBCA ####[facility] ([facility])[address], [place] [address] VIRCOMPREHENSIVE METABOLIC PANELon [id number] [Mass/Vol]3.0 g/dLLow3.2-5.3PKettering Health Greene Memorial HospitalComment on above:Performed By: #### CMP ####[facility] ([facility])[address] [address] VIRALP [Catalytic activity/Vol]112 U/BHuwbod96-112EckMcczfm [place] HospitalComment on above: Performed By: #### CMP ####[facility] ([facility])[address] [address] VIRALT [Catalytic activity/Vol]U/LNormal<=31 [facility] HospitalComment on above:Performed By: #### CMP ####[facility] ([facility])[address] [address] VIR Anion gap [Moles/Vol]12 mmol/LNormal5-15Pro[facility] Childers HospitalComment on above:Performed By: #### CMP ####[facility] ([facility])[address] [address] VIRAST [Catalytic activity/Vol]23 U/LNormal <=41Pro[facility] Childers HospitalComment on above:Performed By: #### CMP ####[facility] [facility] ([facility])[address] [address] VIR Bilirubin [Mass/Vol]0.2 mg/dLLow0.3-1.2ProMedica Childers HospitalComment on above:Performed By: #### CMP ####[facility] ([facility])[address] [address] VIRCalcium [Mass/Vol]8.1 mg/dLLow8.5-10.5 [facility] Childers HospitalComment on above:Performed By: #### CMP ####[facility] ([facility])[address] [address] VIR Chloride [Moles/Vol]101 mmol/WIfwmpm61-224HfjXcdzfq Childers HospitalComment on above:Performed By: #### CMP ####[facility] ([facility])[address] [address] VIRCO2 [Moles/Vol]22 mmol/RNgtuhv56-47 [facility] Childers HospitalComment on above:Performed By: #### CMP ####[facility] ([facility])[address] [address] VIR Creatinine [Mass/Vol]2.40 mg/dLHigh0.40-1.00ProPomerene Hospitalca Angel Fire HospitalComment on above:Result Comment: METHOD TRACEABLE TO IDMS STANDARDPerformed By: #### CMP ####[facility] ([facility])[address] [address] VIRGFR/1.73 sq M.predicted among non-blacks MDRD (S/P/Bld) [Vol rate/Area] 20 mL/min/{1.73_m2}Low>=60ProMedica [facility] Fire HospitalComment on above:Result Comment: Reported eGFR is based on theCKD-EPI 2020 equation that doesnot use a race coefficient.Performed By: #### CMP ####[facility] ([facility])[address] [address] VIRGlucose [Mass/Vol]294 mg/dLHigh 65-99Pro[facility] HospitalComment on above:Performed By: #### CMP ####[facility] ([facility])[address] [address] VIR Potassium [Moles/Vol]4.8 mmol/LNormal3.5-5.0ProGrand [facility] HospitalComment on above:Performed By: #### CMP ####[facility] ([facility])[address] [address] VIRProtein [Mass/Vol]6.2 g/dLNormal6.0-8.0 ProMeliza coffee memorial hospitala [facility] HospitalComment on above:Performed By: #### CMP ####[facility] ([facility])[address] [address] VIR Sodium [Moles/Vol]135 mmol/NUdwxuw776-232XctOuzcmu [place] HospitalComment on above:Performed By: #### CMP ####[facility] ([facility])[address] [address] VIRUrea nitrogen [Mass/Vol]39 mg/dLHigh5-27 [facility] Childers HospitalComment on above:Performed By: #### CMP ####[facility] ([facility])[address] [address] VIR Albumin [Mass/Vol]3.2 g/dLNormal3.2-5.3PMercy Health Lorain HospitalComment on above:Performed By: #### CMP ####[facility] ([facility])[address] [address] VIRALP [Catalytic activity/Vol]116 U/LNormal 39-130ProSumma Health Akron CampusComment on above:Performed By: #### CMP ####[facility] ([facility])[address] [address] VIRALT [Catalytic activity/Vol]7 U/LNormal<=31PMercy Health Lorain Hospital Comment on above:Performed By: #### CMP ####[facility] ([facility])[address] [address] VIRAnion gap [Moles/Vol]11 mmol/L Normal5-15ProSumma Health Akron CampusComment on above:Performed By: #### CMP ####[facility] ([facility])[address] [address] VIRAST [Catalytic activity/Vol]28 U/LNormal<=41Pro[facility] Comment on above:Performed By: #### CMP ####[facility] ([facility])[address] [address] VIRBilirubin [Mass/Vol]0.3 mg/dL Normal0.3-1.2PMercy Health Lorain HospitalComment on above:Performed By: #### CMP ####[facility] ([facility])[address] [address] VIRCalcium [Mass/Vol]8.8 mg/dLNormal8.5-10.5PMercy Health Lorain Hospital Comment on above:Performed By: #### CMP ####[facility] ([facility])[address] [address] VIRChloride [Moles/Vol]96 mmol/LLow 98-109ProMedica Childers HospitalComment on above:Performed By: #### CMP ####[facility] ([facility])[address] [address] VIRCO2 [Moles/Vol]30 mmol/HWvfcqe86-02KngOphtad Childers HospitalComment on above:Performed By: #### CMP ####[facility] ([facility])[address] [address] VIRCreatinine [Mass/Vol]2.29 mg/dLHigh 0.40-1.00[facility] Fire HospitalComment on above:Result Comment: METHOD TRACEABLE TO IDMS STANDARDPerformed By: #### CMP ####[facility] ([facility])[address] [address] VIRGFR/1.73 sq M.predicted among non-blacks MDRD (S/P/Bld) [Vol rate/Area]21 mL/min/{1.73_m2} Low>=60ProMedica Childers HospitalComment on above:Result Comment: Reported eGFR is based on theCKD-EPI 2020 equation that doesnot use a race coefficient. Performed By: #### CMP ####[facility] ([facility])[address] [address] VIRGlucose [Mass/Vol]198 mg/bUEqpi84-79TysGhipsn [facility] HospitalComment on above:Performed By: #### CMP ####[facility] ([facility])[address] [address] VIRPotassium [Moles/Vol]5.0 mmol/LNormal3.5-5.0ProMedica [facility] HospitalComment on above: Performed By: #### CMP ####[facility] ([facility])[address] [address] VIRProtein [Mass/Vol]6.4 g/dLNormal6.0-8.0 [facility] HospitalComment on above:Performed By: #### CMP ####[facility] ([facility])[address] [facility] [address] [address] VIR Sodium [Moles/Vol]137 mmol/LCetlph438-426MqePlxbno [place] HospitalComment on above:Performed By: #### CMP ####[facility] ([facility])[address] [facility] [address] [address] VIRUrea nitrogen [Mass/Vol]37 mg/dLHigh5-27 [facility] HospitalComment on above:Performed By: #### CMP ####[facility] ([facility])[address] [facility] [address] [address] VIR HEMOGLOBIN A1Con 71-69-4892Gjhhzmw [Mass/Vol]197 mg/dLNormalProGrand [facility] HospitalComment on above:Performed By: #### HA1C ####[facility] ([facility])[address] [facility] [address], [place] [address] VDXCvW9l (Bld) [Mass fraction]8.5 %High4.4-5.6ProSumma Health Akron CampusComment on above:Result Comment: ADA Guidelines Result HgbA1c Normal : less than 5.7 % Prediabetes : 5.7 % to 6.4 % Diabetes : > 6.4 % Use with caution in patients with abnormal hemoglobin variants as the half-life of red blood cells and in vivo glycation rates are affected.Performed By: #### HA1C ####[facility] ([facility])[address] [facility] [address], [place] [address] VIR HEMOGLOBIN AND HEMATOCRIT, BLOODon 25-08-5041Eubyuxbmta (Bld) [Volume fraction] 22.9 %Atg97-77WacKtguco [place] HospitalComment on above:Performed By: #### HH ####[facility] ([facility])[address], [place] [address] VIRHemoglobin (Bld) [Mass/Vol]7.5 g/dLLow11.7-15.5[facility] HospitalComment on above:Performed By: #### HH ####[facility] ([facility])[address], [place] [address] VIRHematocrit (Bld) [Volume fraction]24.3 %Ycn86-80IogDwcwsd [facility] HospitalComment on above: Performed By: #### HH ####[facility] ([facility])[address], [place] [address] VIRHemoglobin (Bld) [Mass/Vol]8.0 g/dLLow 11.7-15.5ProMedWayne Hospital HospitalComment on above:Performed By: #### HH ####[facility] ([facility])[address], [place] [address] VIRLACTATEon 50-72-1048Mlxawad [Moles/Vol]2.7 mmol/LHigh0.4-2.0[facility] HospitalComment on above:Performed By: #### LACTA ####[facility] ([facility])[address], [place] [address] VIRLACTATE W/ REFLEXon 80-86-3093OPYFAEK W/REFLEX2.3 mmol/LHigh0.4-2.0[facility] HospitalComment on above:Performed By: #### LACTS ####[facility] ([facility])[address], [place] [address] VIRLDHon 55-98-8365JVP 225 U/NEsgekf515-161WeeFvzrem [facility] HospitalComment on above:Performed By: #### LDH ####[facility] ([facility])[address] [address] VIRMAGNESIUMon 80-67-7196Plbtboiqj [Mass/Vol]2.0 mg/dLNormal 1.8-2.6Pro[facility] HospitalComment on above:Performed By: #### MG ####[facility] ([facility])[address] [facility] [address], [place] [address] VIRMagnesium [Mass/Vol]2.2 mg/dLNormal1.8-2.6[facility] Hospital Comment on above:Performed By: #### MG ####[facility] ([facility])[address] [place] [address] VIRPHOSPHORUSon 07-14-2025 Phosphate [Mass/Vol]6.1 mg/dLHigh2.4-4.9[facility] HospitalComment on above:Performed By: #### PHOS ####[facility] ([facility])[address] [address] VIRPROCALCITONINon 18-04-0464AVPPLNVOZADIH 0.34 ng/mLHigh<0.05[facility] HospitalComment on above:Order Comment: <0.50 ng/mL - Low risk of severe sepsis and/or septic shock.<2.00 ng/mL - Recom mend retesting within 6-24 hours.>2.00 ng/mL - High risk of sepsis and/or septic shock.Performed By: #### PCAL ####[facility] ([facility])[address] [address] VIRPROTIME AND INRon 22-07-4771HCTXHVV AND INRPINR PROTIME & INR CancelledNormalProGrand [facility] HospitalComment on above: Order Comment: Marti Sheffield RN at 1646RETICULOCYTESon 93-84-7257WTTXUCJWDJUF COUNT1.6 %Normal0.4-2.2PMercy Health Lorain HospitalComment on above:Performed By: #### RETIC ####[facility] ([facility])[address] [place] [address] VIRXR CHEST 1 VWon 11-87-6451TD CHEST 1 VWNormalProMedica Angel Fire HospitalBEDSIDE GLUCOSEon 39-48-1895Dkvlmpi [Mass/Vol]364 mg/vTCdfk26-57 ProMeliza coffee memorial hospitala [facility] HospitalComment on above:Performed By: #### BEDG ####[facility] ([facility])[address] [place] [address] VIRGlucose [Mass/Vol]282 mg/yGAklc15-75SqaStltap [place] HospitalComment on above:Performed By: #### BEDG ####[facility] ([facility])[address] [facility] [place] [facility] [place] [address] VIRGlucose [Mass/Vol]330 mg/aOAkpl28-80NnnMipcbm [place] HospitalComment on above:Performed By: #### BEDG ####[facility] ([facility])[address] [place] [address] VIRGlucose [Mass/Vol]173 mg/cVNuge15-58YtySvyake [place] HospitalComment on above:Performed By: #### BEDG ####[facility] ([facility])[address] [place] [address] VIRCA 125on 31-86-5591XH 543625 U/mLHigh <=35ProSumma Health Akron CampusComment on above:Result Comment: The method used for this test is BeckmanCoulter DXI chemiluminescent immunoassay.Values obtained by different assay methodscannot be used interchangeably.Performed By: #### C125 ####[facility] ([facility])[address] [facility] [address], [place] [address] VIRCANCER ANTIGEN 15-3on 05-85-8754TK 15 327.6 U/mLNormal <=31.3Pro[facility] HospitalComment on above:Result Comment: The method used for this test is BeckmanCoulter DXI chemiluminescent immunoassay.Values obtained by different assay methodscannot be used interchangeably.Performed By: #### C153 ####[facility] ([facility])[address], [place] [address] VIRCANCER ANTIGEN 27.29on 87-52-3404ISYCKL ANTGN 27.48470.5 U/mLHigh<=39.0ProSumma Health Akron CampusComment on above:Result Comment: INTERPRETIVE INFORMATION: Cancer Antigen 27.29The CA 27.29 [...] alone for a diagnosis of malignancy.Methodology: [employer] [facility] IM BR 27.29 (BR) chemiluminescentimmunoassay was used. Results obtained with different assaymethods or kits cannot be used interchangeably.Performed By: [employer] [place], [place] [address]Jhuauhymgb Director: Brendon Ruiz MD, PhDCLIA Number: [id number] By: #### CANTGN ####[facility] ([facility])[address] [place] [address] VIRCBC WITH AUTO DIFFERENTIALon 51-48-6330FYTOXYRDF ABSOLUTE COUNT (10*3/UL) BY AUTOMATED COUNT0.1 10*3/uLNormal0.0-0.2[facility] HospitalComment on above:Performed By: #### CBCA ####[facility] ([facility])[address] [address] VIRBASOPHILS RELATIVE PERCENT BY AUTOMATED COUNT0.7 %Normal [facility] HospitalComment on above:Performed By: #### CBCA ####[facility] ([facility])[address], [place] [address] VIR CELLAVISION DIFFERENTIAL TYPEAUTOMATED DIFFERENTIALNormalProMedica Childers HospitalComment on above:Performed By: #### CBCA ####[facility] ([facility])[address], [place] [address] VIREosinophils (Bld) [#/Vol]0.4 10*3/uLNormal0.0-0.4Pro[facility] HospitalComment on above: Performed By: #### CBCA ####[facility] ([facility])[address], [place] [address] VIREOSINOPHILS RELATIVE PERCENT BY AUTOMATED COUNT5.0 %NormalProGrand Lake Joint [facility] HospitalComment on above:Performed By: #### CBCA ####[facility] ([facility])[address], [place] [address] VIRErythrocyte distribution width (RBC) [Ratio]17.9 %High 11.5-15Pro[facility] HospitalComment on above:Performed By: #### CBCA ####[facility] ([facility])[address], [place] [address] VIRHematocrit (Bld) [Volume fraction]29.8 %Tke13-52GtiNtzghr [place] HospitalComment on above:Performed By: #### CBCA ####[facility] ([facility])[address], [place] [address] VIRHemoglobin (Bld) [Mass/Vol]9.8 g/dLLow11.7-15.5PChristus St[address] Francis Cabrini Hospitalica [facility] Fire HospitalComment on above: Performed By: #### CBCA ####[facility] ([facility])[address], [place] [address] VIRLYMPHOCYTES ABSOLUTE COUNT (10*3/UL) BY AUTOMATED COUNT1.9 10*3/uLNormal1.0-3.5PKettering Health Greene Memorial HospitalComment on above:Performed By: #### CBCA ####[facility] ([facility])[address], [place] [address] VIRLYMPHOCYTES RELATIVE PERCENT BY AUTOMATED COUNT25.3 %NormalProMedica Childers HospitalComment on above:Performed By: #### CBCA ####[facility] ([facility])[address], [place] [address] VIRMCH (RBC) [Entitic mass]26.6 loRte67-38CtlIlfbsj Childers HospitalComment on above:Performed By: #### CBCA ####[facility] ([facility])[address] [facility] [address], [place] [address] VIRMCHC (RBC) [Mass/Vol]33.0 g/oBQubfhv05-33KgiDsukqr Childers HospitalComment on above: Performed By: #### CBCA ####[facility] ([facility])[address] [facility] [address], [place] [address] VIRMCV (RBC) [Entitic vol]81 bWBsfkzu07-995 [facility] HospitalComment on above:Performed By: #### CBCA ####[facility] ([facility])[address] [facility] [facility], [place] [address] VIR MONOCYTES ABSOLUTE COUNT (10*3/UL) BY AUTOMATED COUNT1.0 10*3/uLHigh0.0-0.9 [facility] HospitalComment on above:Performed By: #### CBCA ####[facility] ([facility])[address], [place] [address] VIR MONOCYTES RELATIVE PERCENT BY AUTOMATED COUNT14.0 %NormalProMedica Childers HospitalComment on above:Performed By: #### CBCA ####[facility] ([facility])[address], [place] [address] VIRNEUTROPHILS ABSOLUTE COUNT BY AUTOMATED COUNT4.0 10*3/uLNormal1.5-6.6ProMedica Childers HospitalComment on above:Performed By: #### CBCA ####[facility] ([facility])[address], [place] [address] VIRNEUTROPHILS RELATIVE PERCENT BY AUTOMATED COUNT55.0 %NormalProGrand Lake Joint [facility] HospitalComment on above:Performed By: #### CBCA ####[facility] ([facility])[address], [place] [address] VIRPlatelet mean volume (Bld) [Entitic vol]8.1 fLNormal7-12 [facility] HospitalComment on above:Performed By: #### CBCA ####[facility] ([facility])[address], [place] [address] VIR Platelets (Bld) [#/Vol]222 10*3/qDGmchxv580-977RmxIgkluf [place] HospitalComment on above:Performed By: #### CBCA ####[facility] ([facility])[address], [place] [address] VIRRBC COUNT3.69 X10E12/LLow 3.8-5.2ProMedWayne Hospital HospitalComment on above:Performed By: #### CBCA ####[facility] ([facility])[address], [place] [address] VIRWBC (Bld) [#/Vol]7.4 10*3/uLNormal4-11ProGrand [facility] HospitalComment on above:Performed By: #### CBCA ####[facility] ([facility])[address], [place] [address] VIRCOMPREHENSIVE METABOLIC PANELon 29-66-8717Gwrrsgv [Mass/Vol]3.7 g/dLNormal3.2-5.3PKettering Health [facility] Memorial Hospital Comment on above:Performed By: #### CMP ####[facility] ([facility])[address] [address] VIRALP [Catalytic activity/Vol]133 U/XGzum69-411TawOcbmxw [place] HospitalComment on above:Performed By: #### CMP ####[facility] ([facility])[address] [address] VIRALT [Catalytic activity/Vol]10 U/LNormal<=31PMercy Health Lorain Hospital Comment on above:Performed By: #### CMP ####[facility] ([facility])[address] [address] VIRAnion gap [Moles/Vol]9 mmol/L Normal5-15ProSumma Health Akron CampusComment on above:Performed By: #### CMP ####[facility] ([facility])[address] [address] VIRAST [Catalytic activity/Vol]24 U/LNormal<=41[facility] Comment on above:Performed By: #### CMP ####[facility] ([facility])[address] [address] VIRBilirubin [Mass/Vol]0.4 mg/dL Normal0.3-1.2PKettering Health Greene Memorial HospitalComment on above:Performed By: #### CMP ####[facility] ([facility])[address] [address] VIRCalcium [Mass/Vol]9.4 mg/dLNormal8.5-10.5PMercy Health Lorain Hospital Comment on above:Performed By: #### CMP ####[facility] ([facility])[address] [address] VIRChloride [Moles/Vol]95 mmol/LLow 98-109ProSumma Health Akron CampusComment on above:Performed By: #### CMP ####[facility] ([facility])[address] [address] VIRCO2 [Moles/Vol]32 mmol/GLvorln10-18XecGajvcjMercy Health Lorain HospitalComment on above:Performed By: #### CMP ####[facility] ([facility])[address] [address] VIRCreatinine [Mass/Vol]1.73 mg/dLHigh 0.40-1.00[facility] Fire HospitalComment on above:Result Comment: METHOD TRACEABLE TO IDMS STANDARDPerformed By: #### CMP ####[facility] ([facility])[address] [facility] [address] [address] VIRGFR/1.73 sq M.predicted among non-blacks MDRD (S/P/Bld) [Vol rate/Area]30 mL/min/{1.73_m2} Low>=60ProMedica Childers HospitalComment on above:Result Comment: Reported eGFR is based on theCKD-EPI 2020 equation that doesnot use a race coefficient. Performed By: #### CMP ####[facility] ([facility])[address] [facility] [address] [address] VIRGlucose [Mass/Vol]160 mg/jGGekn54-37OilYephcj Angel Fire HospitalComment on above:Performed By: #### CMP ####[facility] ([facility])[address] [facility] [address] [address] VIRPotassium [Moles/Vol]4.1 mmol/LNormal3.5-5.0ProPomerene Hospitalca Angel Fire HospitalComment on above: Performed By: #### CMP ####[facility] ([facility])[address] [address] VIRProtein [Mass/Vol]7.3 g/dLNormal6.0-8.0 ProMeliza coffee memorial hospitala [facility] Fire HospitalComment on above:Performed By: #### CMP ####[facility] ([facility])[address] [facility] [address] [address] VIR Sodium [Moles/Vol]136 mmol/FZucarq832-296HfpGbuywu Angel Fire HospitalComment on above:Performed By: #### CMP ####[facility] ([facility])[address] [address] VIRUrea nitrogen [Mass/Vol]24 mg/dLNormal5-27 [facility] Fire HospitalComment on above:Performed By: #### CMP ####[facility] ([facility])[address] [address] VIR FERRITINon 19-39-8057Dohlyucu [Mass/Vol]290 ng/kRAqbynz71-508WaqQcgnwp [place] HospitalComment on above:Performed By: #### FERR ####[facility] ([facility])[address], [place] [address] VIRFOLATEon 07-13-2025 FOLIC ACID7.9 ng/mLNormal>5.8ProGrand Lake Joint [facility] District Memorial Hospital HospitalComment on above:Performed By: #### FOLI ####[facility] ([facility])[address], [place] [address] VIRHAPTOGLOBINon 56-10-1361JJDZTDFXLUK243 mg/lBVxmf35-705 [facility] Fire HospitalComment on above:Performed By: #### HAPT ####[facility] ([facility])[address], [place] [address] VIR HE4, Son 09-55-5357VB4, S272 pmol/LHigh<=140ProSumma Health Akron CampusComment on above:Result Comment: ADDITIONAL INFORMATION The testing method is an electrochemiluminescenceassay manufactured by [employer] andperformed on the Modular or Pilar system.Values obtained with different assay methods or kitsmay be different and cannot be used interchangeably.Test results cannot be interpreted as absolute evidencefor the presence or absence of malignant disease.Test Performed by:[facility] [place] [address]Tvb Director: Radha Mccormack Ph.D.; CLIA# [id number] By: #### HE4S ####[facility] TouchMail ([facility])[address] [place] [address] VIRHEMOGLOBIN AND HEMATOCRIT, BLOODon 74-13-5733HSTMBZVAWD AND HEMATOCRIT, BLOODHH HEMOGLOBIN AND HEMATOCRIT, BLOOD CancelledNormalProMedica Childers HospitalIRON AND TIBCon 06-93-1042Rfad [Mass/Vol]24 ug/oTCle88-117VkbNnrvzz Childers HospitalComment on above:Performed By: #### FEPR ####[facility] ([facility])[address], [place] [address] VIRIRON ADNQQFT371 ug/oRVkq192-235GciLgdwcw Childers HospitalComment on above:Performed By: #### FEPR ####[facility] ([facility])[address], [place] [address] VIRIRON OGOQDAONAB99 % NGNQBCQNIEPvz82-49FseJapelz Childers HospitalComment on above: Performed By: #### FEPR ####[facility] ([facility])[address], [place] [address] VIRTransferrin [Mass/Vol]168 mg/xUFfkoix673-142 [facility] Fire HospitalComment on above:Performed By: #### FEPR ####[facility] ([facility])[address], [place] [address] VIR MAGNESIUMon 41-95-9316Sqhbmfboq [Mass/Vol]2.1 mg/dLNormal1.8-2.6ProMedica Angel Fire HospitalComment on above:Performed By: #### MG ####[facility] ([facility])[address], [place] [address] VIRPROTIME AND INRon 49-07-3406BMU8.3Xcxcjn8.9-1.2ProMedica Childers HospitalComment on above:Performed By: #### PINR ####[facility] ([facility])[address], [place] [address] VIRPT Coag (PPP) [Time]11.1 sNormal9.8-13.2ProMedica Childers HospitalComment on above:Performed By: #### PINR ####[facility] ([facility])[address], [place] [address] VIRVITAMIN B12on 08-86-9810Tlwdzqwzi (Vitamin B12) [Mass/Vol]1015 pg/lFHjva737-053BtjEoqdyg [facility]itan HospitalComment on above:Performed By: #### B12 ####[facility] ([facility])[address] [address] VIRXR FEMUR LT 2+ VIEWSon 97-09-3182IV FEMUR LT 2+ VIEWSNormalProSumma Health Akron CampusXR FEMUR RT 2+ VIEWSon 00-24-7807XD FEMUR RT 2+ VIEWSNormalProPomerene Hospitalca Good Samaritan HospitalXR FEMUR RT 2+ VIEWSNormLima Memorial Hospital36on [phone] see message below. Pt's daughter called asking if you go to [facility], as pt was transferred there last night and had MRI this morning and needs shunt checked. I told pt's daughter that I will notify you of this.NormalTogus VA Medical CenterAPTTon 58-64-9772oJFB Coag (Bld) [Time]26 iNdelmg25-77 [facility] [place] HospitalComment on above:Performed By: #### PTT ####[facility] ([facility])[address] [address] VIR BEDSIDE GLUCOSEon 43-67-3474Qgyrhrh [Mass/Vol]319 mg/kOBocj79-85TtvMzwpaa [place] HospitalComment on above:Performed By: #### BEDG ####[facility] ([facility])[address] [place] [address] VIRGlucose [Mass/Vol]214 mg/zDRvkj65-06 [facility] HospitalComment on above:Performed By: #### BEDG ####[facility] ([facility])[address], [place] VIRCBC WITH AUTO DIFFERENTIALon 77-57-0025ZSHINAXMO ABSOLUTE COUNT (10*3/UL) BY AUTOMATED COUNT0.1 10*3/uLNormal0.0-0.2ProMedica Mercy Medical CenterComment on above: Performed By: #### CBCA ####[facility] ([address], [id number] VIRBASOPHILS RELATIVE PERCENT BY AUTOMATED COUNT0.7 % NormalBlanchard Valley Health SystemComment on above:Performed By: #### CBCA ####[facility] ([address], [place] VIRCELLAVISION DIFFERENTIAL TYPEAUTOMATED DIFFERENTIALNormalProBaptist Saint Anthony'S HospitalComment on above:Performed By: #### CBCA ####[facility] ([address], [id number] VIREosinophils (Bld) [#/Vol] 0.4 10*3/uLNormal0.0-0.4[facility] Health SystemComment on above:Performed By: #### CBCA ####[facility] ([address], [id number] VIREOSINOPHILS RELATIVE PERCENT BY AUTOMATED COUNT5.3 % NormalBlanchard Valley Health SystemComment on above:Performed By: #### CBCA ####[facility] ([address], [id number] VIRErythrocyte distribution width (RBC) [Ratio]17.9 %High11.5-15ProBaptist Saint Anthony'S HospitalComment on above:Performed By: #### CBCA ####[facility] ([address], [id number] VIRHematocrit (Bld) [Volume fraction]27.2 %Bdq67-64OuyJzlwjgBaptist Saint Anthony'S HospitalComment on above: Performed By: #### CBCA ####[facility] ([address], [id number] VIRHemoglobin (Bld) [Mass/Vol]9.0 g/dLLow11.7-15.5 [facility] SystemComment on above:Performed By: #### CBCA ####[facility] ([facility])[address] [place] [address].[place], [id number] VIR LYMPHOCYTES ABSOLUTE COUNT (10*3/UL) BY AUTOMATED COUNT2.5 10*3/uLNormal1.0-3.5 [facility] SystemComment on above:Performed By: #### CBCA ####[facility] ([facility])[address] [place] [address].[place], [id number] VIR LYMPHOCYTES RELATIVE PERCENT BY AUTOMATED COUNT33.4 %NormalProBaptist Saint Anthony'S HospitalComment on above:Performed By: #### CBCA ####[facility] ([address], [id number] VIRMCH (RBC) [Entitic mass] 26.7 hoXpt42-01FveNpnpaaBaptist Saint Anthony'S HospitalComment on above:Performed By: #### CBCA ####[facility] ([address] [place] [address] VIRMCHC (RBC) [Mass/Vol]33.0 g/jERyhvmk68-90DqzGtrsdoBlanchard Valley Health System Comment on above:Performed By: #### CBCA ####[facility] ([address], [id number] VIRMCV (RBC) [Entitic vol]81 fLNormal 80-100[facility] Health SystemComment on above:Performed By: #### CBCA ####[facility] ([address], [id number] VIRMONOCYTES ABSOLUTE COUNT (10*3/UL) BY AUTOMATED COUNT1.0 10*3/uLHigh0.0-0.9 [facility] SystemComment on above:Performed By: #### CBCA ####[facility] ([facility])[address] [place] [address], [id number] VIRMONOCYTES RELATIVE PERCENT BY AUTOMATED COUNT13.1 %NormalProBaptist Saint Anthony'S HospitalComment on above:Performed By: #### CBCA ####[facility] ([facility])[address] [place], [place] [address]VE.[place], [id number] VIRNEUTROPHILS ABSOLUTE COUNT BY AUTOMATED COUNT3.6 10*3/uLNormal1.5-6.6ProBaptist Saint Anthony'S HospitalComment on above:Performed By: #### CBCA ####[facility] ([facility])[address] [place], [place] [address].[place], [id number] VIRNEUTROPHILS RELATIVE PERCENT BY AUTOMATED COUNT47.5 %NormalBlanchard Valley Health SystemComment on above:Performed By: #### CBCA ####[facility] ([address] [place] [address] VIRPlatelet mean volume (Bld) [Entitic vol]8.2 fLNormal7-12PMercy HealthComment on above:Performed By: #### CBCA ####[facility] ([address], [id number] VIRPlatelets (Bld) [#/Vol]230 10*3/uVPmgzar505-102UvoAbweep Fremont HospitalComment on above: Performed By: #### CBCA ####[facility] ([facility])[address] [place] [address] AVE.[place], [id number] VIRRBC COUNT3.36 X10E12/LLow3.8-5.2PChildren's Hospital Colorado HospitalComment on above:Performed By: #### CBCA ####[facility] ([address], [id number] VIRWBC (Bld) [#/Vol]7.6 10*3/uLNormal4-11ProBaptist Saint Anthony'S HospitalComment on above:Performed By: #### CBCA ####[address] [place] [address] VIRCOMPREHENSIVE METABOLIC PANELon 37-69-8839Dzrinte [Mass/Vol]3.1 g/dLLow 3.2-5.3PMercy HealthComment on above:Performed By: #### CMP ####[facility] ([address] [address] VIRALP [Catalytic activity/Vol]121 U/UBkrtfs18-621CarEgaprwBaptist Saint Anthony'S HospitalComment on above:Performed By: #### CMP ####[address] [place] [address] VIRALT [Catalytic activity/Vol]15 U/LNormal<=31PMercy HealthComment on above: Performed By: #### CMP ####[address] [place] [address] VIRAnion gap [Moles/Vol]10 mmol/LNormal5-15ProBaptist Saint Anthony'S HospitalComment on above:Performed By: #### CMP ####[address] [place] [address] VIRAST [Catalytic activity/Vol]29 U/LNormal<=41ProBaptist Saint Anthony'S HospitalComment on above: Performed By: #### CMP ####[address] [address] VIRBilirubin [Mass/Vol]0.6 mg/dLNormal0.3-1.2 [facility] SystemComment on above:Performed By: #### CMP ####[address] [place] [address] VIRCalcium [Mass/Vol]8.9 mg/dLNormal8.5-10.5PMercy HealthComment on above: Performed By: #### CMP ####[place] [address] [place] [address] VIRChloride [Moles/Vol]94 mmol/UQvt82-779OzrGhsfujBaptist Saint Anthony'S HospitalComment on above:Performed By: #### CMP ####[facility] ([address] [place] [address] VIRCO2 [Moles/Vol]30 mmol/HThrbgm26-16SrwEnoinx Mercy Medical CenterComment on above:Performed By: #### CMP ####[facility] ([address] [address] VIRCreatinine [Mass/Vol]1.75 mg/dLHigh0.40-1.00[facility] Comment on above:Result Comment: METHOD TRACEABLE TO IDMS STANDARDPerformed By: #### CMP ####[facility] ([address] [address] VIRGFR/1.73 sq M.predicted among non-blacks MDRD (S/P/Bld) [Vol rate/Area]29 mL/min/{1.73_m2}Low>=60ProBaptist Saint Anthony'S HospitalComment on above:Result Comment: eGFR not reported due to non-numeric value for Creatinine.Reported eGFR is based ontheCKD-EPI 2021 equation that doesnot use a race coefficient.Performed By: #### CMP ####[facility] ([address] [place] [address] VIRGlucose [Mass/Vol]139 mg/dLHigh 65-99ProBaptist Saint Anthony'S HospitalComment on above:Performed By: #### CMP ####[facility] ([address] [address] VIRPotassium [Moles/Vol]4.2 mmol/LNormal3.5-5.0[facility] Comment on above:Performed By: #### CMP ####[facility] ([address] [address] VIRProtein [Mass/Vol]6.8 g/dLNormal 6.0-8.0[facility] SystemComment on above:Performed By: #### CMP ####[facility] ([facility])[address] [place] [address].[place], [place] [address] VIRSodium [Moles/Vol]134 mmol/CUceovk752-556EhmIafhxrBlanchard Valley Health System Comment on above:Performed By: #### CMP ####[facility] ([facility])[address] [place] [address].[place] [address] VIRUrea nitrogen [Mass/Vol]27 mg/dL Normal5-27[facility] Health SystemComment on above:Performed By: #### CMP ####[facility] ([address] [address] VIRMAGNESIUMon 89-37-3642Dctakbzhq [Mass/Vol]2.1 mg/dLNormal1.8-2.6 [facility] SystemComment on above:Performed By: #### MG ####[facility] ([address] [address] VIRMR PELVIS W WO CONTon 74-59-6208LX PELVIS W WO CONTNormalBlanchard Valley Health System PROTIME AND INRon 11-19-2811VET9.3Ciancn8.9-1.2PMercy Health Lorain HospitalComment on above:Performed By: #### PINR ####[facility] ([facility])[address], [place] [address] VIRPT Coag (PPP) [Time]11.2 s Normal9.8-13.2PMercy Health Lorain HospitalComment on above:Performed By: #### PINR ####[facility] ([facility])[address], [place] [address] VIRTYPE AND SCREENon 55-97-6976DND_ORBJJGVzflhzDuvKcnnxx [place] [facility] Comment on above:Performed By: #### TSC ####[facility] ([facility])[address] [place] [address] VIRRH_INTEPNegativeNoSelect Medical OhioHealth Rehabilitation Hospital - DublinComment on above:Performed By: #### TSC ####[facility] ([facility])[address] [facility] [place] [address] VIRXR CHEST 1 VWon 07-12-2025 XR CHEST 1 VWNormalBlanchard Valley Health System Bluffton HospitalXR FEMUR RT 2+ VIEWSon 20-63-5405NE FEMUR RT 2+ VIEWSNormalBlanchard Valley Health System Bluffton HospitalXR HIP RT 2-3 VIEWS W OR WO PELVISon 78-08-3787ZY HIP RT 2-3 VIEWS W OR WO PELVISNormLima Memorial HospitalXR SKULL 1-3 VWS PARTIALon 94-65-4861OK SKULL 1-3 VWS PARTIALNormal [facility]36on 86-61-028941Mclkgy, RN from [facility] in [place] called asking if pt's shunt is MRI compatible. Noe was notified that it is MRI compatible but will need to have her shunt checked after the MRI. I asked [place] if they have someone in house to do so. Noe stated that they did not and are thinking of transferring pt to either [facility] or [facility]. I had advised [place] to make sure that [facility] has someone to check shunt. Noe verbalized understanding.NormalUnSelect Medical OhioHealth Rehabilitation Hospital - DublinBEDSIDE GLUCOSEon 96-17-0416Jelciwl [Mass/Vol]184 mg/dL Ghtc69-46CwmRrnwjp[address] [place], [place] [address]Comment on above:Performed By: #### BEDG ####[facility] ([facility])[address] [place] [address] [place], [place] VIRGlucose [Mass/Vol]306 mg/lJZfvg43-92BhhLewjlj18 Harris StreetComment on above:Performed By: #### BEDG ####[facility] ([facility])[address] [place] [address] [place], [place] VIRGlucose [Mass/Vol]255 mg/fHRkvb02-46WfwOzyonjBaptist Saint Anthony'S HospitalComment on above:Performed By: #### BEDG ####[facility] ([address], [place] VIRCBC WITH AUTO DIFFERENTIALon 67-82-9628ZKAEJVSNP ABSOLUTE COUNT (10*3/UL) BY AUTOMATED COUNT 0.0 10*3/uLNormal0.0-0.2ProMedMenlo Park VA HospitalComment on above:Performed By: #### CBCA ####[facility] ([address], [id number] VIRBASOPHILS RELATIVE PERCENT BY AUTOMATED COUNT0.5 %Normal [facility] SystemComment on above:Performed By: #### CBCA ####[address], [id number] VIR CELLAVISION DIFFERENTIAL TYPEAUTOMATED DIFFERENTIALNormalProBaptist Saint Anthony'S HospitalComment on above:Performed By: #### CBCA ####[facility] ([address], [id number] VIREosinophils (Bld) [#/Vol] 0.3 10*3/uLNormal0.0-0.4[facility] Health SystemComment on above:Performed By: #### CBCA ####[facility] ([address], [id number] VIREOSINOPHILS RELATIVE PERCENT BY AUTOMATED COUNT3.6 % NormalProBaptist Saint Anthony'S HospitalComment on above:Performed By: #### CBCA ####[address], [id number] VIRErythrocyte distribution width (RBC) [Ratio]18.3 %High11.5-15ProBaptist Saint Anthony'S HospitalComment on above:Performed By: #### CBCA ####[facility] ([address], [id number] VIRHematocrit (Bld) [Volume fraction]28.7 %Cog14-40GnbLulkicBaptist Saint Anthony'S HospitalComment on above: Performed By: #### CBCA ####[facility] ([address] [id number] VIRHemoglobin (Bld) [Mass/Vol]9.5 g/dLLow11.7-15.5 [facility] SystemComment on above:Performed By: #### CBCA ####[facility] ([address], [id number] VIR LYMPHOCYTES ABSOLUTE COUNT (10*3/UL) BY AUTOMATED COUNT2.3 10*3/uLNormal1.0-3.5 [facility] SystemComment on above:Performed By: #### CBCA ####[facility] ([address], [id number] VIR LYMPHOCYTES RELATIVE PERCENT BY AUTOMATED COUNT27.6 %NormalProBaptist Saint Anthony'S HospitalComment on above:Performed By: #### CBCA ####[facility] ([address], [id number] VIRMCH (RBC) [Entitic mass] 26.7 hdZjd95-89TeaSelcgnBlanchard Valley Health SystemComment on above:Performed By: #### CBCA ####[facility] ([address] [place] [address] VIRMCHC (RBC) [Mass/Vol]33.0 g/wKHtmmme40-98OzyZisutpBlanchard Valley Health System Comment on above:Performed By: #### CBCA ####[facility] ([address] [id number] VIRMCV (RBC) [Entitic vol]81 fLNormal 80-100ProBaptist Saint Anthony'S HospitalComment on above:Performed By: #### CBCA ####[facility] ([facility])[address] [place] [address] AVE.[place], [id number] VIRMONOCYTES ABSOLUTE COUNT (10*3/UL) BY AUTOMATED COUNT1.0 10*3/uLHigh0.0-0.9 [facility] SystemComfresenius medical care at care[facility] [place] on above:Performed By: #### CBCA ####[facility] ([address], [id number] VIRMONOCYTES RELATIVE PERCENT BY AUTOMATED COUNT11.7 %NormalBlanchard Valley Health SystemComment on above:Performed By: #### CBCA ####[facility] ([address], [id number] VIRNEUTROPHILS ABSOLUTE COUNT BY AUTOMATED COUNT4.7 10*3/uLNormal1.5-6.6[facility] Health SystemComment on above:Performed By: #### CBCA ####[facility] ([address], [id number] VIRNEUTROPHILS RELATIVE PERCENT BY AUTOMATED COUNT56.6 %Berger HospitalComment on above:Performed By: #### CBCA ####[facility] ([address] [place] [address] VIRPlatelet mean volume (Bld) [Entitic vol]8.6 fLNormal7-12PMercy HealthComment on above:Performed By: #### CBCA ####[facility] ([address], [id number] VIRPlatelets (Bld) [#/Vol]241 10*3/sTYsjcqz558-977AwuYyeexx [facility]remont HospitalComment on above: Performed By: #### CBCA ####[facility] ([address], [id number] VIRRBC COUNT3.54 X10E12/LLow3.8-5.2PMercy HealthComment on above:Performed By: #### CBCA ####[facility] ([facility] [address], [id number] VIRWBC (Bld) [#/Vol]8.3 10*3/uLNormal4-11[facility] Health SystemComment on above:Performed By: #### CBCA ####[facility] ([facility] [place] [address] VIRCOMPREHENSIVE METABOLIC PANELon 48-82-2213Qigpjtr [Mass/Vol]3.2 g/dL Normal3.2-5.3PMercy HealthComment on above:Performed By: #### CMP ####[facility] ([facility] [address] [place] [address] VIRALP [Catalytic activity/Vol]118 U/RJeiohq33-914HgqPkfwvhBaptist Saint Anthony'S HospitalComment on above:Performed By: #### CMP ####[facility] ([address] [place] [address] VIRALT [Catalytic activity/Vol]15 U/LNormal<=31PMercy HealthComment on above: Performed By: #### CMP ####[facility] ([facility] [place] [address] VIRAnion gap [Moles/Vol]11 mmol/LNormal5-15ProBaptist Saint Anthony'S HospitalComment on above:Performed By: #### CMP ####[facility] ([facility] [place] [address] VIRAST [Catalytic activity/Vol]37 U/LNormal<=41ProBaptist Saint Anthony'S HospitalComment on above: Performed By: #### CMP ####[facility] ([facility] [place] [address] VIRBilirubin [Mass/Vol]0.6 mg/dLNormal0.3-1.2 [facility] SystemComment on above:Performed By: #### CMP ####[facility] ([address] [place] [address] VIRCalcium [Mass/Vol]9.1 mg/dLNormal8.5-10.5PMercy HealthComment on above: Performed By: #### CMP ####[facility] ([address] [place] [address] VIRChloride [Moles/Vol]94 mmol/MMoi26-623AnrLihxebBaptist Saint Anthony'S HospitalComment on above:Performed By: #### CMP ####[facility] ([address] [address] VIRCO2 [Moles/Vol]31 mmol/FQwyzjh89-41EupJskhnrMercy HealthComment on above:Performed By: #### CMP ####[facility] ([address] [address] VIRCreatinine [Mass/Vol]1.56 mg/dLHigh0.40-1.00[facility] Comment on above:Result Comment: METHOD TRACEABLE TO IDMS STANDARDPerformed By: #### CMP ####[facility] ([address] [address] VIRGFR/1.73 sq M.predicted among non-blacks MDRD (S/P/Bld) [Vol rate/Area]34 mL/min/{1.73_m2}Low>=60ProBaptist Saint Anthony'S HospitalComment on above:Result Comment: eGFR not reported due to non-numeric value for Creatinine.Reported eGFR is based ontheCKD-EPI 1 equation that doesnot use a race coefficient.Performed By: #### CMP ####[facility] ([address] [address] VIRGlucose [Mass/Vol]120 mg/dLHigh 65-99ProBaptist Saint Anthony'S HospitalComment on above:Performed By: #### CMP ####[facility] ([facility])[address] [place] [address] [place], [place] [address] VIRPotassium [Moles/Vol]3.7 mmol/LNormal3.5-5.0[facility] Comment on above:Performed By: #### CMP ####[facility] ([address] [place] [address] VIRProtein [Mass/Vol]7.0 g/dLNormal 6.0-8.0[facility] SystemComment on above:Performed By: #### CMP ####[facility] ([address], [place] [address] VIRSodium [Moles/Vol]136 mmol/WPnokkx697-190SfjJudcat [facility] Comment on above:Performed By: #### CMP ####[facility] ([address] [place] [address] VIRUrea nitrogen [Mass/Vol]28 mg/dL High-ProBaptist Saint Anthony'S HospitalComment on above:Performed By: #### CMP ####[facility] ([address], [place] [address] VIRMAGNESIUMon 05-13-1975Ryqmhvamy [Mass/Vol]2.1 mg/dLNormal1.8-2.6 [facility] SystemComment on above:Performed By: #### MG ####[facility] ([facility])[address] [place] [address].[place] [address] VIRTelephone on [phone] Cuca Dee 1945 F Date Provider Department Center 07/11/2025 STEFFI [facility] SURG Second Fl Family History Problem Relation Age of Onset Diabetes Mother Hypertension Father Coronary artery disease Father Family Status - Relation Status Age at Mother FatherNormalUniversity Premier Health [facility] HospitalBEDSELECT [facility] GLUCOSEon 07-10-2025 Glucose [Mass/Vol]259 mg/rSRnnz67-04HqxEztbqxBlanchard Valley Health SystemComment on above: Performed By: #### BEDG ####[facility] ([place] [address], [id number] VIRGlucose [Mass/Vol]217 mg/sGJybh99-90OirBwrissBaptist Saint Anthony'S HospitalComment on above:Performed By: #### BEDG ####[facility] ([place] [address], [id number] VIRCOMPREHENSIVE METABOLIC PANELon [id number] [Mass/Vol]3.5 g/dLNormal3.2-5.3PMercy HealthComment on above:Performed By: #### CMP ####[facility] ([address] [place] [address] VIRALP [Catalytic activity/Vol]127 U/NOucosw58-292EbhSktjefBaptist Saint Anthony'S HospitalComment on above: Performed By: #### CMP ####[facility] ([place] [address] [place] [address] VIRALT [Catalytic activity/Vol]17 U/LNormal<=31 [facility] SystemComment on above:Performed By: #### CMP ####[facility] ([address] [place] [address] VIRAnion gap [Moles/Vol]11 mmol/LNormal5-15[facility] SystemComment on above: Performed By: #### CMP ####[facility] ([place] [address] [place] [address] VIRAST [Catalytic activity/Vol]33 U/LNormal<=41 [facility] SystemComment on above:Performed By: #### CMP ####[facility] ([place] [address] [address] VIRBilirubin [Mass/Vol]0.5 mg/dLNormal0.3-1.2PMercy HealthComment on above: Performed By: #### CMP ####[facility] ([address] [place] [place] [address] VIRCalcium [Mass/Vol]9.3 mg/dLNormal8.5-10.5PMercy HealthComment on above:Performed By: #### CMP ####[address] [address] VIRChloride [Moles/Vol]94 mmol/LNzu51-967JbrPsxdyeBaptist Saint Anthony'S HospitalComment on above: Performed By: #### CMP ####[address] [address] VIRCO2 [Moles/Vol]30 mmol/XUobbgk49-55BitNpzeqpMercy HealthComment on above:Performed By: #### CMP ####[address] [address] VIRCreatinine [Mass/Vol]1.54 mg/dLHigh0.40-1.00ProBaptist Saint Anthony'S HospitalComfresenius medical care at [facility] on above: Result Comment: METHOD TRACEABLE TO IDMS STANDARDPerformed By: #### CMP ####[address] [address] VIRGFR/1.73 sq M.predicted among non-blacks MDRD (S/P/Bld) [Vol rate/Area] 34 mL/min/{1.73_m2}Low>=60ProBaptist Saint Anthony'S HospitalComment on above:Result Comment: eGFR not reported due to non-numeric value for Creatinine.Reported eGFR is based ontheCKD-EPI 2020 equation that doesnot use a race coefficient. Performed By: #### CMP ####[facility] ([address] [address] VIRGlucose [Mass/Vol]229 mg/iIVdli30-09JrvMmxcebBaptist Saint Anthony'S HospitalComment on above:Performed By: #### CMP ####[facility] ([address] [address] VIRPotassium [Moles/Vol]4.1 mmol/LNormal3.5-5.0ProBaptist Saint Anthony'S HospitalComment on above: Performed By: #### CMP ####[facility] ([address] [address] VIRProtein [Mass/Vol]7.6 g/dLNormal6.0-8.0ProBaptist Saint Anthony'S HospitalComment on above:Performed By: #### CMP ####[facility] ([address] [address] VIRSodium [Moles/Vol]135 mmol/LFssqad299-701XpqAkzngw Fremont HospitalComment on above: Performed By: #### CMP ####[facility] ([address] [address] VIRUrea nitrogen [Mass/Vol]30 mg/dLHigh5-27ProBaptist Saint Anthony'S HospitalComment on above:Performed By: #### CMP ####[facility] ([address] [address] VIRXR Hip - right 3 Viewson [id number] Result: AP Pelvis and right hip: Osteopenia [...] and cystic changes adjacent concerning for pathologic fracture.[facility] HealthcareRadiology Study observation (narrative)[facility] HealthcareBEDSIDE GLUCOSE on [id number] [Mass/Vol]237 mg/cYCwvs35-93LbvPxhnruMercer County Community HospitalComment on above:Performed By: #### CBCA #### [facility] ([facility]) [address] [place] [address] VIRGlucose [Mass/Vol]238 mg/aANrmj31-98TiuThfmmzUniversity Hospitals Samaritan Medical CenterComment on above:Performed By: #### CBCA #### [facility] ([facility]) [address] [place], [place] [id number] VIRGlucose [Mass/Vol]140 mg/iSAaqo05-99FluHbxmgyMercer County Community HospitalComment on above:Performed By: #### CBCA #### [facility] ([facility]) [address] [place] [address] VIRBedside Glucose *Place/Obtain serum glucose if >500 per glucometer.on [id number] [Mass/Vol]237 mg/aHIzku14 - 99 mg/dLBluffton Hospital SystemInterpretation and review of laboratory resultsAbnormalAspirus Riverview Hospital and Clinics SystemGlucose [Mass/Vol]238 mg/zJBnqh27 - 99 mg/dL [facility] SystemInterpretation and review of laboratory resultsAbnormal [facility]aritan HospitalGlucose [Mass/Vol]140 mg/fAUoko59 - 99 mg/dLBluffton Hospital SystemInterpretation and review of laboratory results AbnormalAspirus Riverview Hospital and Clinics SystemCBC WITH AUTO DIFFERENTIAL on 44-69-2031DLAHEOKMK ABSOLUTE COUNT (10*3/UL) BY AUTOMATED COUNT0.0 10*3/uL Normal0.0-0.2ProMedica [facility] Regional Medical CenterComment on above:Performed By: #### CBCA #### [facility] ([facility]) [address] [place], [place] [id number] VIRBASOPHILS RELATIVE PERCENT BY AUTOMATED COUNT0.6 %Normal [facility] Samaritan Medical CenterComment on above:Performed By: #### CBCA #### [facility] ([facility]) [address] [place], [place] [id number] VIRCELLAVISION DIFFERENTIAL TYPEAUTOMATED DIFFERENTIALNormal [facility]aritan Medical CenterComment on above:Performed By: #### CBCA #### [facility] ([facility]) [address] [place] [address] VIREosinophils (Bld) [#/Vol]0.3 10*3/uLNormal0.0-0.4ProMercer County Community HospitalComment on above:Performed By: #### CBCA #### [facility] ([facility]) [address] [place], [place] [id number] VIREOSINOPHILS RELATIVE PERCENT BY AUTOMATED COUNT3.8 %Normal ProMedicHarrison Community Hospital HospitalComment on above:Performed By: #### CBCA #### [facility] ([facility]) [address] [place], [place] [id number] VIRErythrocyte distribution width (RBC) [Ratio]17.7 %High 11.5-15ProPromedica Flower Hospital HospitalComment on above:Performed By: #### CBCA #### [place] [address] VIRHematocrit (Bld) [Volume fraction]27.5 %Sbm40-58HhoOqwpyoPromedica Flower Hospital HospitalComment on above:Performed By: #### CBCA #### [facility] ([facility]) [address] [place], [place] [id number] VIRHemoglobin (Bld) [Mass/Vol]9.1 g/dLLow11.7-15.5PHolmes County Joel Pomerene Memorial Hospital HospitalComment on above:Performed By: #### CBCA #### [facility] ([facility]) [address] [place], [place] [id number] VIRLYMPHOCYTES ABSOLUTE COUNT (10*3/UL) BY AUTOMATED COUNT1.4 10*3/uLNormal1.0-3.5PHolmes County Joel Pomerene Memorial Hospital HospitalComment on above: Performed By: #### CBCA #### [facility]) [address] [place], [place] [id number] VIRLYMPHOCYTES RELATIVE PERCENT BY AUTOMATED COUNT19.9 % NormalProPromedica Flower Hospital HospitalComment on above:Performed By: #### CBCA #### [facility] ([facility]) [address] [place] [address] VIRMCH (RBC) [Entitic mass]27.1 lgJmadse17-46WgqArdqloPromedica Flower Hospital HospitalComment on above:Performed By: #### CBCA #### [facility] ([facility]) [address] [place] [address] VIRMCHC (RBC) [Mass/Vol]33.3 g/sZUukxnm47-84FlhEzpaeoPromedica Flower Hospital HospitalComment on above:Performed By: #### CBCA #### [facility]) [address] [place] [address] VIRMCV (RBC) [Entitic vol]81 cIJllsdg56-195VjgLadnnoPromedica Flower Hospital HospitalComment on above:Performed By: #### CBCA #### [facility]) [address] [place] [address] VIRMONOCYTES ABSOLUTE COUNT (10*3/UL) BY AUTOMATED COUNT0.9 10*3/uLNormal0.0-0.9ProMercer County Community HospitalComment on above: Performed By: #### CBCA #### [facility]) [address] [place] [address] VIRMONOCYTES RELATIVE PERCENT BY AUTOMATED COUNT12.3 %Normal ProMedicSamaritan North Health CenterComment on above:Performed By: #### CBCA #### [facility]) [address] [place] [address] VIRNEUTROPHILS ABSOLUTE COUNT BY AUTOMATED COUNT4.4 10*3/uL Normal1.5-6.6ProMercer County Community HospitalComment on above:Performed By: #### CBCA #### [facility]) [address] [place] [address] VIRNEUTROPHILS RELATIVE PERCENT BY AUTOMATED COUNT63.4 % NormalProMercer County Community HospitalComment on above:Performed By: #### CBCA #### [facility]) [address] [place] [address] VIRPlatelet mean volume (Bld) [Entitic vol]8.3 fLNormal7-12 [facility] HospitaledicHarrison Community Hospital HospitalComment on above:Performed By: #### CBCA #### [facility] ([facility]) [address] [place] [address] VIRPlatelets (Bld) [#/Vol]253 10*3/eLOgpwep173-807GhqFypuowPromedica Flower Hospital HospitalComment on above:Performed By: #### CBCA #### [facility] ([facility]) [address] [place] [address] VIRRBC COUNT3.37 X10E12/LLow3.8-5.2ProMedica [facility] Regional Medical CenterComment on above:Performed By: #### CBCA #### [facility] ([facility]) [address] [place] [address] VIRWBC (Bld) [#/Vol]7.0 10*3/uLNormal4-11ProPromedica Flower Hospital HospitalComment on above:Performed By: #### CBCA #### [facility] ([facility]) [address] [place] [address] VIRCBC auto differentialon [id number] (Bld) [#/Vol]0 10*3/uL0.0 - 0.2 10*3/uLProMedica Health SystemBasophils/100 WBC (Bld)0.6 % ProMedicMercy Health Tiffin HospitalDifferential cell count method Nom (Bld)AUTOMATED DIFFERENTIALBluffton Hospital SystemEosinophils (Bld) [#/Vol]0.3 10*3/uL0.0 - 0.4 10*3/uLProMedica Health SystemEosinophils/100 WBC (Bld)3.8 %ProMedica Health SystemErythrocyte distribution width (RBC) [Ratio]17.7 %High11.5 - 15 %ProMedica Health SystemHematocrit (Bld) [Volume fraction]27.5 %Low35 - 47 %ProMedica Health SystemHemoglobin (Bld) [Mass/Vol]9.1 g/dLLow11.7 - 15.5 g/dLCommunity Regional Medical CenterInterpretation and review of laboratory resultsAbnormalCommunity Regional Medical CenterLymphocytes (Bld) [#/Vol]1.4 10*3/uL1.0 - 3.5 10*3/uLCommunity Regional Medical CenterLymphocytes/100 WBC (Bld)19.9 %[facility] HospitalH (RBC) [Entitic mass]27.1 pg27 - 34 [facility] HospitalMCHC (RBC) [Mass/Vol]33.3 g/dL32 - 36 g/dLCommunity Regional Medical CenterMCV (RBC) [Entitic vol]81 fL80 - 100 fL [facility] Medical CenterMonocytes (Bld) [#/Vol]0.9 10*3/uL0.0 - 0.9 10*3/uL [facility] CenterMonocytes/100 WBC (Bld)12.3 %[facility] Neutrophils (Bld) [#/Vol]4.4 10*3/uL1.5 - 6.6 10*3/[facility] Neutrophils/100 WBC (Bld)63.4 %[facility] Medical CenterPlatelet mean volume (Bld) [Entitic vol]8.3 fL7 - 12 [facility] Medical CenterPlatelets (Bld) [#/Vol]253 10*3/uLCommunity Regional Medical CenterRBC (Bld) [#/Vol]3.37 10*6/uLLowCommunity Regional Medical CenterWBC LM Ql (Sput)7[facility] COMPREHENSIVE METABOLIC PANELon 62-61-0004Xhwovqw [Mass/Vol]3.0 g/dLLow3.2-5.3 [facility]itan Medical CenterComment on above:Performed By: #### CBCA #### [facility] ([facility]) [address] [place] [address] VIRALP [Catalytic activity/Vol]116 U/HHhmbjv67-674CvhBbncyuMercer County Community HospitalComment on above:Performed By: #### CBCA #### [facility] ([facility]) [address] [place] [address] VIRALT [Catalytic activity/Vol]16 U/LNormal<=31PHolmes County [facility] HospitalComment on above:Performed By: #### CBCA #### [facility]) [address] [place] [address] VIRAnion gap [Moles/Vol]8 mmol/LNormal5-15ProPromedica Flower Hospital HospitalComment on above:Performed By: #### CBCA #### [facility] ([facility]) [address] [place] [address] VIRAST [Catalytic activity/Vol]23 U/LNormal<=41ProPromedica Flower Hospital HospitalComment on above:Performed By: #### CBCA #### [facility] ([facility]) [address] [place] [address] VIRBilirubin [Mass/Vol]0.7 mg/dLNormal0.3-1.2ProMedBucyrus Community Hospital HospitalComment on above:Performed By: #### CBCA #### [facility] ([facility]) [address] [place] [address] VIRCalcium [Mass/Vol]9.1 mg/dLNormal8.5-10.5ProMedBucyrus Community Hospital HospitalComment on above:Performed By: #### CBCA #### [facility]) [address] [place] [address] VIRChloride [Moles/Vol]100 mmol/TRwnzhk90-420UvuLqtypxPromedica Flower Hospital HospitalComment on above:Performed By: #### CBCA #### [facility] ([facility]) [address] [place] [address] VIRCO2 [Moles/Vol]27 mmol/AUorfyp58-91InbCtacnqBucyrus Community Hospital HospitalComment on above:Performed By: #### CBCA #### [facility]) [address] [place] [address] VIRCreatinine [Mass/Vol]1.30 mg/dLHigh0.40-1.00ProPromedica Flower Hospital HospitalComment on above:Result Comment: METHOD TRACEABLE TO IDMS STANDARDPerformed By: #### CBCA #### [facility]) [address] [place] [address] VIRGFR/1.73 sq M.predicted among non-blacks MDRD (S/P/Bld) [Vol rate/Area]42 mL/min/{1.73_m2}Low>=60ProMercer County Community Hospital Comment on above:Result Comment: eGFR not reported due to non-numeric value for Creatinine. Reported eGFR is based on the CKD-EPI 2020 equation that does not use a race coefficient.Performed By: #### CBCA #### [facility]) [address] [place] [address] VIRGlucose [Mass/Vol]157 mg/hPPqbx69-78LykTriwnoMercer County Community HospitalComment on above:Performed By: #### CBCA #### [address] [address] VIRPotassium [Moles/Vol]3.7 mmol/LNormal3.5-5.0ProMercer County Community HospitalComment on above:Performed By: #### CBCA #### [address] [address] VIRProtein [Mass/Vol]6.8 g/dLNormal6.0-8.0ProMercer County Community HospitalComment on above:Performed By: #### CBCA #### [address] [address] VIRSodium [Moles/Vol]135 mmol/GCsfiyq250-102TrcArcfyoMercer County Community HospitalComment on above:Performed By: #### CBCA #### [facility]) [address] [place] [address] VIRUrea nitrogen [Mass/Vol]16 mg/dLNormal5-27ProMercer County Community HospitalComment on above:Performed By: #### CBCA #### [address] [address] VIRComprehensive metabolic panelon 78-84-6164Vordvjp [Mass/Vol]3 g/dLLow3.2 - 5.3 g/dLProWalker County Hospital Health SystemALP [Catalytic activity/Vol]116 U/L39 - 130 U/LPrPikes Peak Regional Hospital Health SystemALT No additional P-5'-P [Catalytic activity/Vol]16 U/LNINF - 31 U/LPrPikes Peak Regional Hospital Health SystemAnion gap [Moles/Vol]8 mmol/L5 - 15 mmol/LPrLakeland Regional Hospitalica Health SystemAST [Catalytic activity/Vol]23 U/LNINF - 41 U/[facility] SystemBilirubin [Mass/Vol]0.7 mg/dL0.3 - 1.2 mg/dLProBarney Children'S Medical Center SystemCalcium [Mass/Vol]9.1 mg/dL8.5 - 10.5 mg/dLProBarney Children'S Medical Center SystemChloride [Moles/Vol]100 mmol/L98 - 109 mmol/L [facility] CenterCO2 [Moles/Vol]27 mmol/L22 - 32 mmol/[facility] SystemCreatinine [Mass/Vol]1.3 mg/dLHigh0.40 - 1.00 mg/dLCommunity Regional Medical Center Comment on above:METHOD TRACEABLE TO IDDE STANDARDEGFR Non-Race Torqrfmmx01Lwq- PINSSM Health Cardinal Glennon Children's HospitalComment on above:eGFR not reported due to non-numeric value for Creatinine. Reported eGFR is based on the CKD-EPI 2020 equation that does not use a race coefficient. Glucose [Mass/Vol]157 mg/gRXycr99 - 99 mg/dLBluffton Hospital SystemPotassium [Moles/Vol]3.7 mmol/L3.5 - 5.0 mmol/[facility] SystemProtein [Mass/Vol] 6.8 g/dL6.0 - 8.0 g/dLBluffton Hospital SystemSodium [Moles/Vol]135 mmol/L134 - 146 mmol/[facility] SystemUrea nitrogen [Mass/Vol]16 mg/dL5 - 27 mg/dL [facility] CenterMAGNESIUMon 78-12-2501Fwtdddtiz [Mass/Vol]1.7 mg/dLLow 1.8-2.6[facility]itan Medical CenterComment on above:Performed By: #### BEDG #### [facility] ([facility]) [address] [place] [address] VIRMagnesiumon 27-07-1873Lxmrtcqjf [Mass/Vol]1.7 mg/dLLow1.8 - 2.6 mg/dLCommunity Regional Medical CenterNo Panel Informationon 07-05-2025 Interpretation and review of laboratory resultsAbnormalJeanes HospitalBEDSIDE GLUCOSEon 09-71-1371Srqhcix [Mass/Vol]189 mg/dL Equy74-47GabRmntozMercer County Community HospitalComment on above:Performed By: #### BEDG #### [facility] ([facility]) [address] [place] [address] VIRGlucose [Mass/Vol]371 mg/hRYhbb67-10QvyRsenzjMercer County Community HospitalComment on above:Performed By: #### BEDG #### [facility]) [address] [place] [address] VIRGlucose [Mass/Vol]254 mg/iJNass32-66XjxOfkrelMercer County Community HospitalComment on above:Performed By: #### BEDG #### [facility] ([facility]) [address] [place] [address] VIRGlucose [Mass/Vol]144 mg/zPBalw63-39CbaInquzi38 Lee StreetComment on above:Performed By: #### BEDG #### [facility]) [address] [place] [address] VIRBedside Glucose *Place/Obtain serum glucose if >500 per glucometer.on 65-70-0281Jleyozh [Mass/Vol]189 mg/xEDoxa76 - 99 mg/dLBluffton Hospital SystemInterpretation and review of laboratory resultsAbnormalBluffton Hospital SystemProBarney Children'S Medical Center SystemGlucose [Mass/Vol]371 mg/aTQrrp61 - 99 mg/dL ProMedicOlivia Hospital and Clinics SystemInterpretation and review of laboratory resultsAbnormal [facility] SystemProBarney Children'S Medical Center SystemGlucose [Mass/Vol]254 mg/mMJxcb47 - 99 mg/dLProBarney Children'S Medical Center SystemInterpretation and review of laboratory results AbnormalProDepartment of Veterans Affairs Medical Center-LebanonGlucose [Mass/Vol]144 mg/oCFmks96 - 99 mg/dLCommunity Regional Medical CenterInterpretation and review of laboratory resultsAbnormalWellSpan Good Samaritan HospitalCB WITH AUTO DIFFERENTIALon [id number] ABSOLUTE COUNT (10*3/UL) BY AUTOMATED COUNT0.1 10*3/uLNormal0.0-0.2ProMedCleveland Clinic Fairview HospitalComment on above:Performed By: #### BEDG #### [facility] ([facility]) [address] [place] [address] VIRBASOPHILS RELATIVE PERCENT BY AUTOMATED COUNT0.8 %Normal [facility] Medical CenterComment on above:Performed By: #### BEDG #### [facility]) [address] [place] [address] VIRCELLAVISION DIFFERENTIAL TYPEAUTOMATED DIFFERENTIALNormal [facility] Medical CenterComment on above:Performed By: #### BEDG #### [facility]) [address] [place] [address] VIREosinophils (Bld) [#/Vol]0.2 10*3/uLNormal0.0-0.4[facility] Medical CenterComment on above:Performed By: #### BEDG #### [facility]) [address] [place] [address] VIREOSINOPHILS RELATIVE PERCENT BY AUTOMATED COUNT2.9 %Normal [facility] Medical CenterComment on above:Performed By: #### BEDG #### [facility]) [address] [place] [address] VIRErythrocyte distribution width (RBC) [Ratio]17.5 %High 11.5-15[facility] Medical CenterComment on above:Performed By: #### BEDG #### [facility]) [address] [place] [address] VIRHematocrit (Bld) [Volume fraction]30.4 %Ktp45-34ErsFzbxkyMercer County Community HospitalComment on above:Performed By: #### BEDG #### [place] [id number] VIRHemoglobin (Bld) [Mass/Vol]10.2 g/dLLow11.7-15.5PSelect Medical TriHealth Rehabilitation HospitalComment on above:Performed By: #### BEDG #### [place] [id number] VIRLYMPHOCYTES ABSOLUTE COUNT (10*3/UL) BY AUTOMATED COUNT1.6 10*3/uLNormal1.0-3.5PSelect Medical TriHealth Rehabilitation HospitalComment on above: Performed By: #### BEDG #### [place] [address] VIRLYMPHOCYTES RELATIVE PERCENT BY AUTOMATED COUNT24.2 % NormalProMercer County Community HospitalComment on above:Performed By: #### BEDG #### [facility]) [address] [place] [address] VIRMCH (RBC) [Entitic mass]27.1 dkPapolg63-28JecQppoqdMercer County Community HospitalComment on above:Performed By: #### BEDG #### [place] [id number] VIRMCHC (RBC) [Mass/Vol]33.5 g/vHMgdgms59-93ZvaHoofgxPromedica Flower Hospital HospitalComment on above:Performed By: #### BEDG #### [facility]) [address] [place], [place] [id number] VIRMCV (RBC) [Entitic vol]81 wJTvscew02-835UhuVeypicMercer County Community HospitalComment on above:Performed By: #### BEDG #### [facility]) [address] [place], [place] [id number] VIRMONOCYTES ABSOLUTE COUNT (10*3/UL) BY AUTOMATED COUNT0.8 10*3/uLNormal0.0-0.9Pro[facility] HospitalComment on above: Performed By: #### BEDG #### [facility] ([address] [address] VIRMONOCYTES RELATIVE PERCENT BY AUTOMATED COUNT12.8 %Normal ProMPremier Health Atrium Medical Center HospitalComment on above:Performed By: #### BEDG #### [address] [address] VIRNEUTROPHILS ABSOLUTE COUNT BY AUTOMATED COUNT3.9 10*3/uL Normal1.5-6.6[facility] HospitalComment on above:Performed By: #### BEDG #### [address] [address] VIRNEUTROPHILS RELATIVE PERCENT BY AUTOMATED COUNT59.3 % NormalProPromedica Flower Hospital HospitalComment on above:Performed By: #### BEDG #### [address] [address] VIRPlatelet mean volume (Bld) [Entitic vol]8.9 fLNormal7-12 ProMedicHarrison Community Hospital HospitalComment on above:Performed By: #### BEDG #### [address] [address] VIRPlatelets (Bld) [#/Vol]304 10*3/dEDocydd117-367IksGkcsqf [facility] HospitalComment on above:Performed By: #### BEDG #### [facility]) [address] [place] [address] VIRRBC COUNT3.75 X10E12/LLow3.8-5.2[facility] HospitalComment on above:Performed By: #### BEDG #### [address] [address] VIRWBC (Bld) [#/Vol]6.5 10*3/uLNormal4-11[facility] HospitalComment on above:Performed By: #### BEDG #### [facility] ([facility]) [address] [place] [address] [facility] auto differentialon [id number] (Bld) [#/Vol] 0.1 10*3/uL0.0 - 0.2 10*3/uLCommunity Regional Medical CenterBasophils/100 WBC (Bld)0.8 % [facility] CenterDifferential cell count method Nom (Bld)AUTOMATED DIFFERENTIALCommunity Regional Medical CenterEosinophils (Bld) [#/Vol]0.2 10*3/uL0.0 - 0.4 10*3/uLBluffton Hospital SystemEosinophils/100 WBC (Bld)2.9 %[facility] SystemErythrocyte distribution width (RBC) [Ratio]17.5 %High11.5 - 15 %[facility] CenterHematocrit (Bld) [Volume fraction]30.4 %Low35 - 47 %[facility] SystemHemoglobin (Bld) [Mass/Vol]10.2 g/dLLow11.7 - 15.5 g/dLBluffton Hospital SystemInterpretation and review of laboratory resultsAbnormalCommunity Regional Medical CenterLymphocytes (Bld) [#/Vol]1.6 10*3/uL1.0 - 3.5 10*3/uLCommunity Regional Medical CenterLymphocytes/100 WBC (Bld)24.2 %[facility] CenterMCH (RBC) [Entitic mass]27.1 pg27 - 34 pgPProMedica Defiance Regional HospitalMCHC (RBC) [Mass/Vol]33.5 g/dL32 - 36 g/dLCommunity Regional Medical CenterMCV (RBC) [Entitic vol]81 fL80 - 100 fL [facility] SystemMonocytes (Bld) [#/Vol]0.8 10*3/uL0.0 - 0.9 10*3/uL [facility] SystemMonocytes/100 WBC (Bld)12.8 %[facility] Neutrophils (Bld) [#/Vol]3.9 10*3/uL1.5 - 6.6 10*3/uLBluffton Hospital System Neutrophils/100 WBC (Bld)59.3 %[facility] SystemPlatelet mean volume (Bld) [Entitic vol]8.9 fL7 - 12 fLPGalion Community Hospital SystemPlatelets (Bld) [#/Vol]304 10*3/[facility] SystemRBC (Bld) [#/Vol]3.75 10*6/[facility] InstituteWBC LM Ql (Sput)6.5PGuthrie Troy [facility] COMPREHENSIVE METABOLIC PANELon 61-11-8869Kddqmjj [Mass/Vol]3.4 g/dLNormal 3.2-5.3PHolmes County [facility] HospitalComment on above:Performed By: #### BEDG #### [facility] ([facility]) [address] [place] [address] VIRALP [Catalytic activity/Vol]130 U/YRgdquw36-370HykDksrgzMercer County Community HospitalComment on above:Performed By: #### BEDG #### [facility] ([facility]) [address] [place] [address] VIRALT [Catalytic activity/Vol]16 U/LNormal<=31PSelect Medical TriHealth Rehabilitation HospitalComment on above:Performed By: #### BEDG #### [facility]) [address] [place] [address] VIRAnion gap [Moles/Vol]10 mmol/LNormal5-15ProMercer County Community HospitalComment on above:Performed By: #### BEDG #### [facility] ([address] [address] VIRAST [Catalytic activity/Vol]26 U/LNormal<=41ProMercer County Community HospitalComment on above:Performed By: #### BEDG #### [facility]) [address] [place] [address] VIRBilirubin [Mass/Vol]0.7 mg/dLNormal0.3-1.2PSelect Medical TriHealth Rehabilitation HospitalComment on above:Performed By: #### BEDG #### [facility] ([facility]) [address] [place] [address] VIRCalcium [Mass/Vol]9.5 mg/dLNormal8.5-10.5Pro[facility] Regional Medical CenterComment on above:Performed By: #### BEDG #### [facility]) [address] [place] [address] VIRChloride [Moles/Vol]100 mmol/HFwzmji61-336CjnJkvuijMercer County Community HospitalComment on above:Performed By: #### BEDG #### [address] [address] VIRCO2 [Moles/Vol]26 mmol/XQinxnl53-64HqoBmauskCleveland Clinic Fairview HospitalComment on above:Performed By: #### BEDG #### [facility]) [address] [place] [address] VIRCreatinine [Mass/Vol]1.27 mg/dLHigh0.40-1.00ProMercer County Community HospitalComment on above:Result Comment: METHOD TRACEABLE TO IDMS STANDARDPerformed By: #### BEDG #### [facility]) [address] [place] [address] VIRGFR/1.73 sq M.predicted among non-blacks MDRD (S/P/Bld) [Vol rate/Area]43 mL/min/{1.73_m2}Low>=60[facility] Comment on above:Result Comment: eGFR not reported due to non-numeric value for Creatinine. Reported eGFR is based on the CKD-EPI 2021 equation that does not use a race coefficient.Performed By: #### BEDG #### [facility]) [address] [place] [address] VIRGlucose [Mass/Vol]121 mg/bBRalx67-98SicAavznuMercer County Community HospitalComment on above:Performed By: #### BEDG #### [facility]) [address] [place] [address] VIRPotassium [Moles/Vol]3.8 mmol/LNormal3.5-5.0ProMercer County Community HospitalComment on above:Performed By: #### BEDG #### [facility] ([facility]) [address] [place] [address] VIRProtein [Mass/Vol]7.4 g/dLNormal6.0-8.0ProMercer County Community HospitalComment on above:Performed By: #### BEDG #### [facility]) [address] [place] [address] VIRSodium [Moles/Vol]136 mmol/FAmnnto015-236LayWqklwgMercer County Community HospitalComment on above:Performed By: #### BEDG #### [address] [address] VIRUrea nitrogen [Mass/Vol]14 mg/dLNormal5-27ProMercer County Community HospitalComment on above:Performed By: #### BEDG #### [address] [address] VIRComprehensive metabolic panelon 53-65-3005Qvgwqcm [Mass/Vol]3.4 g/dL3.2 - 5.3 g/dLProMedica Health SystemALP [Catalytic activity/Vol]130 U/L39 - 130 U/LProMedica Health SystemALT No additional P-5'-P [Catalytic activity/Vol]16 U/LNINF - 31 U/LProMedica Health SystemAnion gap [Moles/Vol]10 mmol/L5 - 15 mmol/LProMedica Health SystemAST [Catalytic activity/Vol]26 U/LNINF - 41 U/LProMedica Health SystemBilirubin [Mass/Vol]0.7 mg/dL0.3 - 1.2 mg/dLProMedica Health SystemCalcium [Mass/Vol]9.5 mg/dL8.5 - 10.5 mg/dLProMedica Health SystemChloride [Moles/Vol]100 mmol/L98 - 109 mmol/L [facility] SystemCO2 [Moles/Vol]26 mmol/L22 - 32 mmol/LProMedica Health SystemCreatinine [Mass/Vol]1.27 mg/dLHigh0.40 - 1.00 mg/dLProMedica Health SystemComment on above:METHOD TRACEABLE TO IDMS STANDARDEGFR Non-Race Dependent 43Low- PINFPProMedica Defiance Regional HospitalComment on above:eGFR not reported due to non- numeric value for Creatinine. Reported eGFR is based on the CKD-EPI 2020 equation that does not use a race coefficient. Glucose [Mass/Vol]121 mg/mYUhrg32 - 99 mg/dLCommunity Regional Medical Center Interpretation and review of laboratory resultsAbnormalCommunity Regional Medical Center Potassium [Moles/Vol]3.8 mmol/L3.5 - 5.0 mmol/[facility] HospitaloMedl.[facility] Health SystemProtein [Mass/Vol]7.4 g/dL6.0 - 8.0 g/dLProKettering Health Main Campusodium [Moles/Vol]136 mmol/L134 - 146 mmol/[facility] SystemUrea nitrogen [Mass/Vol]14 mg/dL5 - 27 mg/dLCommunity Regional Medical CenterMAGNESIUMon 84-85-1681Qoiqvaaxb [Mass/Vol]1.9 mg/dLNormal1.8-2.6[facility] Medical CenterComment on above: Performed By: #### BEDG #### [facility]) [address] [place] [address] VIRMagnesiumon 60-43-8870Kokcpjkbw [Mass/Vol]1.9 mg/dL1.8 - 2.6 mg/dLCommunity Regional Medical CenterNo Panel Informationon 45-40-9977Mihgtswcnftyfv and review of laboratory resultsNormalCommunity Regional Medical CenterProGenesis HospitalPHOSPHORUSon 08-68-2591Ellidoxlw [Mass/Vol]3.2 mg/dLNormal2.4-4.9[facility] Medical CenterComment on above:Performed By: #### BEDG #### [facility]) [address] [place] [address] VIRPhosphoruson 40-27-2330Sydzigavy [Mass/Vol]3.2 mg/dL2.4 - 4.9 mg/dLCommunity Regional Medical CenterBEDSIDE GLUCOSEon 49-38-0968Ymbgprn [Mass/Vol] 185 mg/iOYhfr52-58LbzBaugyuMercer County Community HospitalComment on above: Performed By: #### BEDG #### [facility] ([facility]) [address] [place] [address] VIRGlucose [Mass/Vol]125 mg/cCExlw16-84IvcOepbpqMercer County Community HospitalComment on above:Performed By: #### BEDG #### [facility] ([facility]) [address] [place] [address] VIRGlucose [Mass/Vol]204 mg/iPOwvu63-70ZepCioteeMercer County Community HospitalComment on above:Performed By: #### BEDG #### [facility] ([facility]) [address] [place] [address] VIRGlucose [Mass/Vol]125 mg/fSXohx19-83FwlGpvtyuMercer County Community HospitalComment on above:Performed By: #### BEDG #### [facility] ([facility]) [address] [place] [address] VIRBedside Glucose *Place/Obtain serum glucose if >500 per glucometer.on 10-55-7151Vbscmjc [Mass/Vol]185 mg/cXZmtb33 - 99 mg/dLBluffton Hospital SystemInterpretation and review of laboratory resultsAbnormalProMedidc Health SystemProWalker County Hospital Health SystemGlucose [Mass/Vol]125 mg/tJPpsm99 - 99 mg/dL ProMedicOlivia Hospital and Clinics SystemInterpretation and review of laboratory resultsAbnormal [facility] SystemBluffton Hospital SystemGlucose [Mass/Vol]204 mg/kTOycy62 - 99 mg/dLProBarney Children'S Medical Center SystemInterpretation and review of laboratory results AbnormalProBeloit Memorial Hospital SystemGlucose [Mass/Vol]125 mg/sYEcws62 - 99 mg/dLBluffton Hospital SystemInterpretation and review of laboratory resultsAbnormalAspirus Riverview Hospital and Clinics SystemCBC WITH AUTO DIFFERENTIALon 15-31-2223HBMQVODFB ABSOLUTE COUNT (10*3/UL) BY AUTOMATED COUNT0.0 10*3/uLNormal0.0-0.2Pro[facility]ica [facility] Medical CenterComment on above:Performed By: #### CBCA #### [facility] ([facility]) [address] [place] [address] VIRBASOPHILS RELATIVE PERCENT BY AUTOMATED COUNT0.4 %Normal [facility] Medical CenterComment on above:Performed By: #### CBCA #### [facility]) [address] [place] [address] VIRCELLAVISION DIFFERENTIAL TYPEAUTOMATED DIFFERENTIALNormal [facility] Medical CenterComment on above:Performed By: #### CBCA #### [facility]) [address] [place] [address] VIREosinophils (Bld) [#/Vol]0.1 10*3/uLNormal0.0-0.4ProMercer County Community HospitalComment on above:Performed By: #### CBCA #### [address] [address] VIREOSINOPHILS RELATIVE PERCENT BY AUTOMATED COUNT1.6 %Normal [facility] HospitalComment on above:Performed By: #### CBCA #### [address] [address] VIRErythrocyte distribution width (RBC) [Ratio]17.3 %High 11.5-15ProMercer County Community HospitalComment on above:Performed By: #### CBCA #### [address] [address] VIRHematocrit (Bld) [Volume fraction]27.6 %Lwt45-17UuxDwpbgkMercer County Community HospitalComment on above:Performed By: #### CBCA #### [facility]) [address] [place] [address] VIRHemoglobin (Bld) [Mass/Vol]9.2 g/dLLow11.7-15.5ProMedica [facility] Medical CenterComment on above:Performed By: #### CBCA #### [facility]) [address] [place] [address] VIRLYMPHOCYTES ABSOLUTE COUNT (10*3/UL) BY AUTOMATED COUNT1.6 10*3/uLNormal1.0-3.5[facility] HospitalComment on above: Performed By: #### CBCA #### [place] [id number] VIRLYMPHOCYTES RELATIVE PERCENT BY AUTOMATED COUNT25.8 % NormalProPromedica Flower Hospital HospitalComment on above:Performed By: #### CBCA #### [facility]) [address] [place] [address] VIRH (RBC) [Entitic mass]26.9 oeXir01-83FzuOiaoztPromedica Flower Hospital HospitalComment on above:Performed By: #### CBCA #### [facility]) [address] [place] [address] VIRMC (RBC) [Mass/Vol]33.5 g/hXXudemh73-66LvqZiivfyPromedica Flower Hospital HospitalComment on above:Performed By: #### CBCA #### [facility]) [address] [place] [address] VIRMCV (RBC) [Entitic vol]81 oEDratbx79-709KjhQijhumPromedica Flower Hospital HospitalComment on above:Performed By: #### CBCA #### [place] [id number] VIRMONOCYTES ABSOLUTE COUNT (10*3/UL) BY AUTOMATED COUNT0.7 10*3/uLNormal0.0-0.9ProMercer County Community HospitalComment on above: Performed By: #### CBCA #### [place] [id number] VIRMONOCYTES RELATIVE PERCENT BY AUTOMATED COUNT11.0 %Normal [facility] HospitalComment on above:Performed By: #### CBCA #### [facility]) [address] [place] [address] VIRNEUTROPHILS ABSOLUTE COUNT BY AUTOMATED COUNT3.8 10*3/uL Normal1.5-6.6Pro[facility] HospitalComment on above:Performed By: #### CBCA #### [facility] ([facility]) [address] [place] [address] VIRNEUTROPHILS RELATIVE PERCENT BY AUTOMATED COUNT61.2 % NormalSelect Medical Specialty Hospital - Columbus HospitalComment on above:Performed By: #### CBCA #### [facility] ([facility]) [address] [place] [address] VIRPlatelet mean volume (Bld) [Entitic vol]8.3 fLNormal7-12 ProMedicHarrison Community Hospital HospitalComment on above:Performed By: #### CBCA #### [facility] ([facility]) [address] [place] [address] VIRPlatelets (Bld) [#/Vol]314 10*3/aLUdcleb874-187ZduWwlsudMercer County Community HospitalComment on above:Performed By: #### CBCA #### [facility]) [address] [place], [place] [id number] VIRRBC COUNT3.43 X10E12/LLow3.8-5.2[facility] HospitalComment on above:Performed By: #### CBCA #### [facility] ([facility]) [address] [place], [place] [id number] VIRWBC (Bld) [#/Vol]6.2 10*3/uLNormal4-11[facility] Medical CenterComment on above:Performed By: #### CBCA #### [facility] ([facility]) [address] [place] [address] VIRCBC auto differentialon 45-36-1302Rdgqcfrnu (Bld) [#/Vol]0 10*3/uL0.0 - 0.2 10*3/uLProMedica Health SystemBasophils/100 WBC (Bld)0.4 % [facility] CenterDifferential cell count method Nom (Bld)AUTOMATED DIFFERENTIALProBarney Children'S Medical Center SystemEosinophils (Bld) [#/Vol]0.1 10*3/uL0.0 - 0.4 10*3/uLProMedica Health SystemEosinophils/100 WBC (Bld)1.6 %[facility] Medical CenterErythrocyte distribution width (RBC) [Ratio]17.3 %High11.5 - 15 %[facility] Medical CenterHematocrit (Bld) [Volume fraction]27.6 %Low35 - 47 %[facility] Medical CenterHemoglobin (Bld) [Mass/Vol]9.2 g/dLLow11.7 - 15.5 g/dLCommunity Regional Medical CenterInterpretation and review of laboratory resultsAbnoCounts include 234 beds at the [facility] Children's HospitalLymphocytes (Bld) [#/Vol]1.6 10*3/uL1.0 - 3.5 10*3/uLCommunity Regional Medical CenterLymphocytes/100 WBC (Bld)25.8 %[facility] Medical CenterMCH (RBC) [Entitic mass]26.9 pgLow27 - 34 [facility] HospitalMCHC (RBC) [Mass/Vol] 33.5 g/dL32 - 36 g/dLCommunity Regional Medical CenterMCV (RBC) [Entitic vol]81 fL80 - 100 [facility] CenterMonocytes (Bld) [#/Vol]0.7 10*3/uL0.0 - 0.9 10*3/uL [facility] CenterMonocytes/100 WBC (Bld)11 %[facility] Neutrophils (Bld) [#/Vol]3.8 10*3/uL1.5 - 6.6 10*3/[facility] Neutrophils/100 WBC (Bld)61.2 %[facility] CenterPlatelet mean volume (Bld) [Entitic vol]8.3 fL7 - 12 [facility] Medical CenterPlatelets (Bld) [#/Vol]314 10*3/uLCommunity Regional Medical CenterRBC (Bld) [#/Vol]3.43 10*6/uLLowCommunity Regional Medical CenterWBC LM Ql (Sput)6.2PGuthrie Troy Community Hospital COMPREHENSIVE METABOLIC PANELon 10-57-7930Jjgqnzt [Mass/Vol]3.2 g/dLNormal 3.2-5.3PSelect Medical TriHealth Rehabilitation HospitalComment on above:Performed By: #### CMP #### [facility]) [address] [place] [address] VIRALP [Catalytic activity/Vol]115 U/VRotvug93-415WyjZfeisiPromedica Flower Hospital HospitalComment on above:Performed By: #### CMP #### [facility] ([facility]) [address] [place] [address] VIRALT [Catalytic activity/Vol]14 U/LNormal<=31ProMedBucyrus Community Hospital HospitalComment on above:Performed By: #### CMP #### [facility]) [address] [place] [address] VIRAnion gap [Moles/Vol]9 mmol/LNormal5-15ProMercer County Community HospitalComment on above:Performed By: #### CMP #### [address] [address] VIRAST [Catalytic activity/Vol]21 U/LNormal<=41ProPromedica Flower Hospital HospitalComment on above:Performed By: #### CMP #### [facility]) [address] [place] [address] VIRBilirubin [Mass/Vol]0.9 mg/dLNormal0.3-1.2PHolmes County Joel [facility]omerene [facility] HospitalComment on above:Performed By: #### CMP #### [facility]) [address] [place] [address] VIRCalcium [Mass/Vol]9.0 mg/dLNormal8.5-10.5ProMedBucyrus Community Hospital HospitalComment on above:Performed By: #### CMP #### [facility]) [address] [place] [address] [place] [address] VIRChloride [Moles/Vol]98 mmol/PAuixvx49-967ExrJtaxniPromedica Flower Hospital HospitalComment on above:Performed By: #### CMP #### [facility]) [address] [place] [address] [place] [address] VIRCO2 [Moles/Vol]25 mmol/PZneufg97-50BjxDvoshc [facility] Medical CenterComment on above:Performed By: #### CMP #### [facility]) [address] [place], [place] [id number] VIRCreatinine [Mass/Vol]1.17 mg/dLHigh0.40-1.00ProMercer County Community HospitalComment on above:Result Comment: METHOD TRACEABLE TO IDMS STANDARDPerformed By: #### CMP #### [facility]) [address] [place], [place] [id number] VIRGFR/1.73 sq M.predicted among non-blacks MDRD (S/P/Bld) [Vol rate/Area]47 mL/min/{1.73_m2}Low>=60ProMercer County Community Hospital Comment on above:Result Comment: eGFR not reported due to non-numeric value for Creatinine. Reported eGFR is based on the CKD-EPI 2020 equation that does not use a race coefficient.Performed By: #### CMP #### [place] [id number] VIRGlucose [Mass/Vol]103 mg/gPXslz71-09NhxCvrdumMercer County Community HospitalComment on above:Performed By: #### CMP #### [place] [id number] VIRPotassium [Moles/Vol]3.8 mmol/LNormal3.5-5.0ProMercer County Community HospitalComment on above:Performed By: #### CMP #### [place] [id number] VIRProtein [Mass/Vol]7.0 g/dLNormal6.0-8.0ProMercer County Community HospitalComment on above:Performed By: #### CMP #### [place] [id number] VIRSodium [Moles/Vol]132 mmol/DSnx647-715XzbAinpucMercer County Community HospitalComment on above:Performed By: #### CMP #### [address] [place] [address] VIRUrea nitrogen [Mass/Vol]18 mg/dLNormal5-27[facility] Medical CenterComment on above:Performed By: #### CMP #### [facility] ([facility]) [address] [place] [address] VIRComprehensive metabolic panelon 17-02-5997Damlqyq [Mass/Vol]3.2 g/dL3.2 - 5.3 g/dLProWalker County Hospital Health SystemALP [Catalytic activity/Vol]115 U/L39 - 130 U/LProMedica Health SystemALT No additional P-5'-P [Catalytic activity/Vol]14 U/LNINF - 31 U/LProMedica Health SystemAnion gap [Moles/Vol]9 mmol/L5 - 15 mmol/LProMedica Health SystemAST [Catalytic activity/Vol]21 U/LNINF - 41 U/LProMedica Health SystemBilirubin [Mass/Vol]0.9 mg/dL0.3 - 1.2 mg/dLProBarney Children'S Medical Center SystemCalcium [Mass/Vol]9 mg/dL8.5 - 10.5 mg/dLProBarney Children'S Medical Center SystemChloride [Moles/Vol]98 mmol/L98 - 109 mmol/L [facility] Hospitaledic Health SystemCO2 [Moles/Vol]25 mmol/L22 - 32 mmol/LPrLakeland Regional Hospitalica Health SystemCreatinine [Mass/Vol]1.17 mg/dLHigh0.40 - 1.00 mg/dLBluffton Hospital SystemComment on above:METHOD TRACEABLE TO IDMS STANDARDEGFR Non-Race Dependent 47Mary Washington HealthcareComment on above:eGFR not reported due to non- numeric value for Creatinine. Reported eGFR is based on the CKD-EPI 202 equation that does not use a race coefficient. Glucose [Mass/Vol]103 mg/oQMnio29 - 99 mg/dLBluffton Hospital System Interpretation and review of laboratory resultsAbnormalProBarney Children'S Medical Center System Potassium [Moles/Vol]3.8 mmol/L3.5 - 5.0 mmol/LProMedica Health SystemProtein [Mass/Vol]7 g/dL6.0 - 8.0 g/dLBluffton Hospital SystemSodium [Moles/Vol]132 mmol/IFgn841 - 146 mmol/LProMedica Cincinnati [facility] SystemUrea nitrogen [Mass/Vol]18 mg/dL 5 - 27 mg/dLBluffton Hospital SystemMAGNESIUMon 02-09-5880Mgjxepbbn [Mass/Vol]1.8 mg/dLNormal1.8-2.6[facility] Medical CenterComment on above: Performed By: #### MG #### [facility] ([facility]) [address] [place] [address] VIRMagnesiumon 32-17-3214Mnhesumqj [Mass/Vol]1.8 mg/dL1.8 - 2.6 mg/dLCommunity Regional Medical CenterNo Panel Informationon 49-62-7320Aehnirdoubxcdd and review of laboratory resultsNormalWellSpan Good Samaritan HospitalPHOSPHORUSon 78-60-5687Rpxaeormk [Mass/Vol]3.1 mg/dLNormal2.4-4.9[facility] Medical CenterComment on above:Performed By: #### PHOS #### [facility] ([facility]) [address] [place] [address] VIRPhosphoruson 95-71-0344Omhavotdu [Mass/Vol]3.1 mg/dL2.4 - 4.9 mg/dLCommunity Regional Medical CenterXR ABDOMEN AP 1 VWon 81-96-8847VN ABDOMEN AP 1 VWXR ABDOMEN AP 1 VW Abdomen single view Clinical history:n/v abdominal pain Comparison: 10/17/2019 Findings: AP supine view of the abdomen. Ventricular shunt catheter tubing, tip in the right lower quadrant. Nonobstructive, nonspecific bowel gas pattern. Impression: Nonobstructive, nonspecific bowel gas pattern. Finalized by Sarai Acevedo MD on 07/03/2025 2:51 PMNormalProMercer County Community HospitalXR Abdomen APon 30-89-9340Yesmwdx single view Clinical history:n/v abdominal pain Comparison: 10/17/2019 Findings: AP supine view of the abdomen. Ventricular shunt catheter tubing, tip in the right lower quadrant. Nonobstructive, nonspecific bowel gas pattern. Impression: Nonobstructive, nonspecific bowel gas pattern. Finalized by Sarai Acevedo MD on 07/03/2025 2:51 PMSECTRASarai Camp MD - 07/03/2025 Abdomen single view Clinical history:n/v abdominal pain Comparison: 10/17/2019 Findings: AP supine view of the abdomen. Ventricular shunt catheter tubing, tip in the right lower quadrant. Nonobstructive, nonspecific bowel gas pattern. Impression: Nonobstructive, nonspecific bowel gas pattern. Finalized by Sarai Acevedo MD on 07/03/2025 2:51 PM [facility] HospitalRealty CompassRadiology Study observation (narrative)[facility] HospitalRealty CompassXR Abdomen APOrdered By: Sarai Acevedo on 68-73-4964SzuCjzebsCommunity Regional Medical Center Work Phone: BEDSIDE GLUCOSEon 80-85-7059Ylhwrvo [Mass/Vol]99 mg/dL Mclyhx95-94GcqIshyknUniversity Hospitals Samaritan Medical CenterComment on above:Performed By: #### BEDG #### [facility] ([facility]) [address] [place] [address] VIRBLOOD CULTUREon 31-29-2478Pljgoumv identified Cx Nom (Bld) CULTURE RESULTS NO GROWTH 5 DAYSBerger HospitalComment on above:Order Comment: *SIRS Criteria: (must display 2 without [...] patients with suspected urinary source who are improvingPerformed By: #### BC ####[facility] ([facility])[address] [address] VIRBacteria identified Cx Nom (Bld)CULTURE RESULTS NO GROWTH 5 DAYSNoOhio State Harding HospitalComment on above:Order Comment: *SIRS Criteria: (must display 2 without [...] patients with suspected urinary source who are improvingPerformed By: #### BC ####[facility] ([facility])[address], [place] [address] VIRBedside Glucose *Place/Obtain serum glucose if >500 per glucometer.on 29-08-2223Dnaxpbs [Mass/Vol]99 mg/dL65 - 99 mg/dLCommunity Regional Medical Center Interpretation and review of laboratory resultsNormalJeanes HospitalCB WITH AUTO DIFFERENTIALon 73-14-6991ZPXKFXBWH ABSOLUTE COUNT (10*3/UL) BY AUTOMATED COUNT0.0 10*3/uLNormal0.0-0.2PMercy HealthComment on above:Performed By: #### CBCA ####[facility] ([facility])[address] [place] [address], [id number] VIRBASOPHILS RELATIVE PERCENT BY AUTOMATED COUNT0.5 %Berger HospitalComment on above: Performed By: #### CBCA ####[facility] ([address], [id number] VIRCELLAVISION DIFFERENTIAL TYPEAUTOMATED DIFFERENTIAL NormalBlanchard Valley Health SystemComment on above:Performed By: #### CBCA ####[facility] ([facility])[address] [place] [address].[place], [id number] VIREosinophils (Bld) [#/Vol]0.1 10*3/uLNormal0.0-0.4[facility] Comment on above:Performed By: #### CBCA ####[facility] ([address], [id number] VIREOSINOPHILS RELATIVE PERCENT BY AUTOMATED COUNT1.3 %Berger HospitalComment on above:Performed By: #### CBCA ####[facility] ([address] [id number] VIRErythrocyte distribution width (RBC) [Ratio]17.6 %High 11.5-15ProBaptist Saint Anthony'S HospitalComment on above:Performed By: #### CBCA ####[facility] ([address], [id number] VIRHematocrit (Bld) [Volume fraction]31.1 %Pcy86-67RasAaqfdjBaptist Saint Anthony'S Hospital Comment on above:Performed By: #### CBCA ####[facility] ([address], [id number] VIRHemoglobin (Bld) [Mass/Vol]10.3 g/dL Low11.7-15.5PMercy HealthComment on above:Performed By: #### CBCA ####[facility] ([address], [id number] VIRLYMPHOCYTES ABSOLUTE COUNT (10*3/UL) BY AUTOMATED COUNT1.4 10*3/uLNormal 1.0-3.5PMercy HealthComment on above:Performed By: #### CBCA ####[facility] ([address], [id number] VIRLYMPHOCYTES RELATIVE PERCENT BY AUTOMATED COUNT19.8 %NormalProBaptist Saint Anthony'S HospitalComment on above:Performed By: #### CBCA ####[facility] ([address], [id number] VIRMCH (RBC) [Entitic mass] 26.3 cwFom45-70FkxDvsfybBaptist Saint Anthony'S HospitalComment on above:Performed By: #### CBCA ####[facility] ([address] [place] [address] VIRMCHC (RBC) [Mass/Vol]32.9 g/hEQomhwe67-52EqpBmtuicGrant Hospital on above:Performed By: #### CBCA ####[facility] ([address], [id number] VIRMCV (RBC) [Entitic vol]80 fLNormal 80-100ProBaptist Saint Anthony'S HospitalComment on above:Performed By: #### CBCA ####[facility] ([address], [id number] VIRMONOCYTES ABSOLUTE COUNT (10*3/UL) BY AUTOMATED COUNT0.7 10*3/uLNormal0.0-0.9 [facility] SystemComment on above:Performed By: #### CBCA ####[facility] ([address], [id number] VIRMONOCYTES RELATIVE PERCENT BY AUTOMATED COUNT9.1 %NormalBlanchard Valley Health SystemComment on above:Performed By: #### CBCA ####[facility] ([address], [id number] VIRNEUTROPHILS ABSOLUTE COUNT BY AUTOMATED COUNT5.0 10*3/uLNormal1.5-6.6[facility] SystemComment on above:Performed By: #### CBCA ####[facility] ([address], [id number] VIRNEUTROPHILS RELATIVE PERCENT BY AUTOMATED COUNT69.3 %NormalBlanchard Valley Health SystemComment on above:Performed By: #### CBCA ####[facility] ([address] [place] [address] VIRPlatelet mean volume (Bld) [Entitic vol]7.8 fLNormal7-12ProMedica Mercy Medical CenterComment on above:Performed By: #### CBCA ####[facility] ([address], [id number] VIRPlatelets (Bld) [#/Vol]401 10*3/fNGcunub589-934NjuIfqlmd [facility]remont HospitalComment on above: Performed By: #### CBCA ####[facility] ([facility])[address] [place] [address] AVE.[place], [id number] VIRRBC COUNT3.89 X10E12/LNormal3.8-5.2PMercy HealthComment on above:Performed By: #### CBCA ####[facility] ([facility])[address] [place] [address] AVE.[place], [id number] VIRWBC (Bld) [#/Vol] 7.2 10*3/uLNormal4-11ProBaptist Saint Anthony'S HospitalComment on above:Performed By: #### CBCA ####[facility] ([address], [id number] VIRCOMPREHENSIVE METABOLIC PANELon 24-89-2933Haqsfkr [Mass/Vol]3.6 g/dLNormal3.2-5.3PMercy HealthComment on above: Performed By: #### CMP ####[facility] ([address] [place] [address] VIRALP [Catalytic activity/Vol]135 U/JZfqr91-622 [facility] SystemComment on above:Performed By: #### CMP ####[facility] ([address] [place] [address] VIRALT [Catalytic activity/Vol]18 U/LNormal<=31PMercy HealthComment on above:Performed By: #### CMP ####[facility] ([address] [place] [address] VIRAnion gap [Moles/Vol]14 mmol/LNormal5-15 [facility] SystemComment on above:Performed By: #### CMP ####[facility] ([address] [place] [address] VIRAST [Catalytic activity/Vol]29 U/LNormal<=41ProBaptist Saint Anthony'S HospitalComment on above:Performed By: #### CMP ####[facility] ([address] [place] [address] VIRBilirubin [Mass/Vol]0.8 mg/dLNormal0.3-1.2 [facility] SystemComment on above:Performed By: #### CMP ####[facility] ([address] [place] [address] VIRCalcium [Mass/Vol]9.7 mg/dLNormal8.5-10.5PMercy HealthComment on above: Performed By: #### CMP ####[address] [place] [address] VIRChloride [Moles/Vol]96 mmol/IHuc87-276LfwZhzagxBlanchard Valley Health SystemComment on above:Performed By: #### CMP ####[facility] ([address] [place] [address] VIRCO2 [Moles/Vol]23 mmol/RNomjms49-29TxcEiiplpMercy HealthComment on above:Performed By: #### CMP ####[facility] ([address] [place] [address] VIRCreatinine [Mass/Vol]1.17 mg/dLHigh0.40-1.00[facility] Comment on above:Result Comment: METHOD TRACEABLE TO IDMS STANDARDPerformed By: #### CMP ####[facility] ([address] [place] [address] VIRGFR/1.73 sq M.predicted among non-blacks MDRD (S/P/Bld) [Vol rate/Area]47 mL/min/{1.73_m2}Low>=60ProBaptist Saint Anthony'S HospitalComment on above:Result Comment: eGFR not reported due to non-numeric value for Creatinine.Reported eGFR is based ontheCKD-EPI 2020 equation that doesnot use a race coefficient.Performed By: #### CMP ####[facility] ([address] [place] [address] VIRGlucose [Mass/Vol]131 mg/dLHigh 65-99ProBaptist Saint Anthony'S HospitalComment on above:Performed By: #### CMP ####[facility] ([address] [address] VIRPotassium [Moles/Vol]3.9 mmol/LNormal3.5-5.0[facility] Comment on above:Performed By: #### CMP ####[facility] ([address] [place] [address] VIRProtein [Mass/Vol]8.2 g/dLHigh 6.0-8.0[facility] SystemComment on above:Performed By: #### CMP ####[facility] ([address], [place] [address] VIRSodium [Moles/Vol]133 mmol/HRqj374-104NleKspmgxBaptist Saint Anthony'S HospitalComment on above:Performed By: #### CMP ####[address] [place] [address] VIRUrea nitrogen [Mass/Vol]23 mg/dLNormal5-27 [facility] SystemComment on above:Performed By: #### CMP ####[address] [place] [address] VIRCT ABDOMEN AND PELVIS W CONTon 33-96-2941GI ABDOMEN AND PELVIS W CONTNormal [facility] SystemCT BRAIN WO CONTon 29-36-8012NC BRAIN WO CONTNormal [facility] SystemER EXTRA URINE CULTUREon 66-20-0197KK EXTRA URINE CULTUREERXUC ER EXTRA URINE CULTURE CancelledNoOhio State Harding Hospital LACTATE W/ REFLEXon 54-41-5343OUXFBPW W/REFLEX1.2 mmol/LNormal0.4-2.0[facility] SystemComment on above:Order Comment: Result did not trigger repeat Lactate,re-order if needed.Performed By: #### LACTS ####[facility] ([address] [address] VIRLIPASEon 53-30-9562Hghgtz [Catalytic activity/Vol]28 U/CMbdtyi97-96VaiFzmrmxBaptist Saint Anthony'S HospitalComment on above:Performed By: #### LIPA ####[facility] ([address] VIRMAGNESIUMon 07-02-2025 Magnesium [Mass/Vol]1.4 mg/dLLow1.8-2.6ProBaptist Saint Anthony'S HospitalComment on above:Performed By: #### MG ####[facility] ([address] [address] VIRPHOSPHORUSon 82-21-5409Mpansyzqz [Mass/Vol] 3.0 mg/dLNormal2.4-4.9ProMercer County Community HospitalComment on above: Performed By: #### PHOS #### [facility] ([address] [address] VIRPOCT NURSING URINE MACROSCOPIC UAon 93-89-1813YFATXCATK NURModerateAbnormalNegativeBlanchard Valley Health SystemComment on above:Performed By: #### NUM ####[facility] ([address] [address] VIRBLOOD/HGB NURNegativeNormalNegativeBlanchard Valley Health SystemComment on above:Performed By: #### NUM ####[facility] ([address] [address] VIRGLUCOSE NURNegativeNormal NegativeProMedica Mercy Medical CenterComment on above:Performed By: #### NUM ####[facility] ([address] [address] VIRKETONES NUR40 mg/dLAbnormalNegativeProBaptist Saint Anthony'S HospitalComment on above:Performed By: #### NUM ####[facility] ([address] [address] VIRLEUKOCYTE ESTERASE NURNegativeNormalNegative [facility] SystemComment on above:Performed By: #### NUM ####[facility] ([address] [address] VIRNITRITE NURNegativeNormalNegativeBlanchard Valley Health SystemComment on above:Performed By: #### NUM ####[facility] ([address] [address] VIRPH NUR5.5Jnmzto5.0, 6.0, 6.5, 7.0, 7.5, 8.0, 8.5, 5.5 [facility] SystemComment on above:Performed By: #### NUM ####[facility] ([address] [address] VIRPROTEIN NUR30 mg/dLAbnormalNegativeBlanchard Valley Health SystemComment on above:Performed By: #### NUM ####[facility] ([address] [address] VIRSPECIFIC GRAVITY MARYJO>=1.087Yegyvrub5.010, 1.015, 1.020, 1.025[facility] SystemComment on above:Performed By: #### NUM ####[address] [address] VIRUROBILINOGEN NUR0.2 E.U./dLNormalTuscarawas Hospital HospitalComment on above:Performed By: #### NUM ####[facility] ([address] [address] VIRPhosphoruson 02-96-1148Iviztfwrwpmmpx and review of laboratory resultsNoCounts include 234 beds at the [facility] Children's HospitalPhosphate [Mass/Vol]3 mg/dL2.4 - 4.9 mg/dLCommunity Regional Medical CenterProBarney Children'S Medical Center SystemTROP I, HIGH SENSITIVITY 1 HOURon 28-70-5398AUYOJTXX I, HIGH WNYFRCBGYYQ87 ng/LNormal<16 ProMKaiser Permanente Medical CenterComment on above:Performed By: #### TNIHS1 ####[facility] ([address] [address] VIRTROPONIN I, HIGH SENSITIVITY 0 HOURon 44-54-6230XWFBLFXM I, HIGH YPYUPGBZCEA73 ng/LHigh<16[facility] SystemComment on above:Performed By: #### TNIHS0 ####[facility] ([address] [address] VIRURINE CULTUREon 72-95-9295Iwpagvhh identified Cx Nom (U)CULTURE RESULTS NO GROWTH AT <1000 CFU/mLNormalBlanchard Valley Health SystemComment on above: Performed By: #### UC ####[facility] ([facility])[address] [facility] [address], [place] [address] VIRUS PELVIC WITH DUPLEXon 12-63-1136YI PELVIC WITH DUPLEXNoOhio State Harding HospitalXR CHEST 1 VWon 77-55-2972YQ CHEST [address] [facility] God HospitalUrine Cultureon 39-46-1930Jzjnpowm identified Cx Nom (U)ORGANISM: Citrobacter freundii complex (O:CITFRC) [place] Count >100,000 ORGANISM: Enterococcus faecalis (O:ENTFAC) [place] Count 50,000 Aerobic CLARK Charge (NMIC56) SUSCEPTIBILITY [...] RESISTANT TO ALL B-LACTAM DRUGS. PERFORMED BY: [facility] [address] [place] [address] PATHOLOGIST PROCESSOR GRAIN MARA LOPEZ M.D.[facility] Physician GroupComment on above: Performed By: #### CUU #### [facility] [address] [place] [address] USABEDSIDE GLUCOSEon 05-40-5014Rtdyruw [Mass/Vol]336 mg/dL Aeos79-64CtpTrswbs Mercy Medical CenterComment on above:Performed By: #### BEDG ####[facility] ([facility])[address] [place] [address] VIRCBC WITH AUTO DIFFERENTIALon 11-93-6296EWTIMSQBQ ABSOLUTE COUNT (10*3/UL) BY AUTOMATED COUNT0.1 10*3/uLNormal0.0-0.2PMercy HealthComment on above:Performed By: #### CBCA ####[facility] ([address], [id number] VIRBASOPHILS RELATIVE PERCENT BY AUTOMATED COUNT 1.4 %NormalBlanchard Valley Health SystemComment on above:Performed By: #### CBCA ####[facility] ([address], [id number] VIRCELLAVISION DIFFERENTIAL TYPEAUTOMATED DIFFERENTIALNoalBlanchard Valley Health SystemComment on above:Performed By: #### CBCA ####[address], [id number] VIREosinophils (Bld) [#/Vol] 0.3 10*3/uLNormal0.0-0.4[facility] SystemComment on above:Performed By: #### CBCA ####[facility] ([address], [id number] VIREOSINOPHILS RELATIVE PERCENT BY AUTOMATED COUNT4.0 % NormalBlanchard Valley Health SystemComment on above:Performed By: #### CBCA ####[address], [id number] VIRErythrocyte distribution width (RBC) [Ratio]16.5 %High11.5-15ProBaptist Saint Anthony'S HospitalComment on above:Performed By: #### CBCA ####[address], [id number] VIRHematocrit (Bld) [Volume fraction]28.0 %Abx61-45YmnBlzyceBaptist Saint Anthony'S HospitalComment on above: Performed By: #### CBCA ####[address], [id number] VIRHemoglobin (Bld) [Mass/Vol]9.2 g/dLLow11.7-15.5 [facility] SystemComment on above:Performed By: #### CBCA ####[facility] ([address] [id number] VIR LYMPHOCYTES ABSOLUTE COUNT (10*3/UL) BY AUTOMATED COUNT2.2 10*3/uLNormal1.0-3.5 [facility] SystemComment on above:Performed By: #### CBCA ####[facility] ([address] VIR LYMPHOCYTES RELATIVE PERCENT BY AUTOMATED COUNT31.9 %NormalProBaptist Saint Anthony'S HospitalComment on above:Performed By: #### CBCA ####[facility] ([address] [id number] VIRMCH (RBC) [Entitic mass] 26.7 prJmk07-43CnjXqzjzmBaptist Saint Anthony'S HospitalComment on above:Performed By: #### CBCA ####[facility] ([address] [place] [address] VIRMCHC (RBC) [Mass/Vol]33.0 g/lQIwnosl90-94LlyBiwrjhBlanchard Valley Health System Comment on above:Performed By: #### CBCA ####[facility] ([address], [id number] VIRMCV (RBC) [Entitic vol]81 fLNormal 80-100ProBaptist Saint Anthony'S HospitalComment on above:Performed By: #### CBCA ####[facility] ([address] [id number] VIRMONOCYTES ABSOLUTE COUNT (10*3/UL) BY AUTOMATED COUNT0.8 10*3/uLNormal0.0-0.9 [facility] SystemComment on above:Performed By: #### CBCA ####[facility] ([facility] [id number] VIRMONOCYTES RELATIVE PERCENT BY AUTOMATED COUNT12.4 %NormalProBaptist Saint Anthony'S HospitalComment on above:Performed By: #### CBCA ####[facility] ([place] [id number] VIRNEUTROPHILS ABSOLUTE COUNT BY AUTOMATED COUNT3.4 10*3/uLNormal1.5-6.6ProBaptist Saint Anthony'S HospitalComment on above:Performed By: #### CBCA ####[facility] ([address], [id number] VIRNEUTROPHILS RELATIVE PERCENT BY AUTOMATED COUNT50.3 %NormalBlanchard Valley Health SystemComment on above:Performed By: #### CBCA ####[facility] ([address] [place] [address] VIRPlatelet mean volume (Bld) [Entitic vol]8.2 fLNormal7-12PMercy HealthComment on above:Performed By: #### CBCA ####[facility] ([address], [id number] VIRPlatelets (Bld) [#/Vol]226 10*3/bANuvnym983-153NatIxdrzh [facility] HospitalComment on above: Performed By: #### CBCA ####[facility] ([facility])[address] [place], [place] [address] [address]VE.[place], [id number] VIRRBC COUNT3.45 X10E12/LLow3.8-5.2PChildren's Hospital Colorado HospitalComment on above:Performed By: #### CBCA ####[facility] ([address], [id number] VIRWBC (Bld) [#/Vol]6.8 10*3/uLNormal4-11ProBaptist Saint Anthony'S HospitalComment on above:Performed By: #### CBCA ####[facility] ([facility] [place] [address] VIRCOMPREHENSIVE METABOLIC PANELon 93-40-6310Ryenkiz [Mass/Vol]2.9 g/dLLow 3.2-5.3PMercy HealthComment on above:Performed By: #### CMP ####[facility] ([place] [address], [place] [address] VIRALP [Catalytic activity/Vol]104 U/MWfmgnd70-382QdwVnibkdBaptist Saint Anthony'S HospitalComment on above:Performed By: #### CMP ####[facility] ([place] [address] [place] [address] VIRALT [Catalytic activity/Vol]8 U/LNormal<=31PMercy HealthComment on above:Performed By: #### CMP ####[facility] ([address] [place] [address] VIRAnion gap [Moles/Vol]8 mmol/LNormal5-15ProBaptist Saint Anthony'S HospitalComment on above:Performed By: #### CMP ####[facility] ([place] [address] [place] [address] VIRAST [Catalytic activity/Vol]14 U/LNormal<=41ProBaptist Saint Anthony'S HospitalComment on above: Performed By: #### CMP ####[facility] ([place] [address] [place] [address] VIRBilirubin [Mass/Vol]0.3 mg/dLNormal0.3-1.2 [facility] SystemComment on above:Performed By: #### CMP ####[facility] ([place] [address] [place] [address] VIRCalcium [Mass/Vol]8.8 mg/dLNormal8.5-10.5PMercy HealthComment on above: Performed By: #### CMP ####[facility] ([address] [place] [address] VIRChloride [Moles/Vol]106 mmol/GDcviqm01-599 [facility] SystemComment on above:Performed By: #### CMP ####[facility] ([address] [place] [address] VIRCO2 [Moles/Vol]26 mmol/OAhkhuc57-67OlvCbzuzb [facility] Medical CenterComment on above: Performed By: #### CMP ####[facility] ([address] [address] VIRCreatinine [Mass/Vol]1.28 mg/dLHigh0.40-1.00 [facility] SystemComment on above:Result Comment: METHOD TRACEABLE TO IDMS STANDARDPerformed By: #### CMP ####[facility] ([address] [address] VIRGFR/1.73 sq M.predicted among non- blacks MDRD (S/P/Bld) [Vol rate/Area]43 mL/min/{1.73_m2}Low>=60[facility] SystemComment on above:Result Comment: eGFR not reported due to non-numeric value for Creatinine.Reported eGFR is based ontheCKD-EPI 2021 equation that doesnot use a race coefficient.Performed By: #### CMP ####[facility] ([address] [place] [address] VIRGlucose [Mass/Vol]160 mg/cFSsgn40-39AdgWjvljsBaptist Saint Anthony'S HospitalComment on above:Performed By: #### CMP ####[facility] ([address] [address] VIRPotassium [Moles/Vol]3.8 mmol/LNormal3.5-5.0ProBaptist Saint Anthony'S HospitalComment on above:Performed By: #### CMP ####[facility] ([address] [address] VIRProtein [Mass/Vol]6.3 g/dLNormal6.0-8.0ProBaptist Saint Anthony'S HospitalComment on above: Performed By: #### CMP ####[facility] ([address] [place] [address] VIRSodium [Moles/Vol]140 mmol/ONyuxwn017-184ItqIgntvy [facility] HospitalComment on above:Performed By: #### CMP ####[facility] ([address] [address] VIRUrea nitrogen [Mass/Vol]18 mg/dLNormal5-27ProBaptist Saint Anthony'S HospitalComment on above:Performed By: #### CMP ####[facility] ([address] [place] [address] VIRMAGNESIUMon 23-48-5622Xhwhlyhko [Mass/Vol]2.0 mg/dL Normal1.8-2.6ProBaptist Saint Anthony'S HospitalComment on above:Performed By: #### MG ####[facility] ([address], [place] [address] VIRURINALYSISon 90-17-2963Nkeibiorw Ql (U)NegativeNormalNegativeBlanchard Valley Health SystemComment on above:Performed By: #### UA ####[facility] ([address] [place] [address] VIRBLOOD/HGBNegative NormalNegativeBlanchard Valley Health SystemComment on above:Performed By: #### UA ####[facility] ([address], [place] [address] VIRColor (U)YellowNormalYellowProBaptist Saint Anthony'S HospitalComment on above: Performed By: #### UA ####[facility] ([address] [place] [address] VIRGlucose Ql (U)NegativeNormalNegative, 250 mg/dL [facility] SystemComment on above:Performed By: #### UA ####[facility] ([address] [place] [address] VIRKetones Ql (U)NegativeNormalNegativeProBaptist Saint Anthony'S HospitalComment on above:Performed By: #### UA ####[facility] ([address] [place] [address] VIRLeukocyte esterase Test strip Ql (U)NegativeNormal NegativeProBaptist Saint Anthony'S HospitalComfresenius medical care at [facility] on above:Performed By: #### UA ####[facility] ([address] [place] [address] VIRMUCOUSPresentAbnormalNonePMercy HealthComfresenius medical care [facility] on above: Performed By: #### UA ####[facility] ([address] [address] VIRNitrite Ql (U)NegativeNormalNegativeBlanchard Valley Health SystemComfresenius medical [facility] on above:Performed By: #### UA ####[facility] ([address] [place] [address] VIRPH,URINE6.0Normal 5.0-8.5PChristus St[facility] Hospitalica [facility] CenterComfresenius [facility] on above:Performed By: #### UA ####[facility] ([address] [place] [address] VIRProtein Ql (U)TraceAbnormalNegativeBlanchard Valley Health SystemComment on above:Performed By: #### UA ####[facility] ([address] [place] [address] VIRSpecific gravity (U) [Rel density]1.025 Normal1.003-1.035[facility] SystemComfresenius [facility] on above:Performed By: #### UA ####[facility] ([facility])[address] [place] [address] [place] [address] VIRTURBIDITYClearNormalClearBlanchard Valley Health SystemComment on above: Performed By: #### UA ####[facility] ([facility])[address] [place] [address] [place] [address] VIRUROBILINOGEN0.2 eu/dLNormal0.2 eu/dL, 1.0 eu/dL [facility] SystemComment on above:Performed By: #### UA ####[facility] ([address] [place] [address] VIRURINE CULTUREon [id number] identified Cx Nom (U)CULTURE RESULTS <10,000 ORGANISMS/mL NORMAL [facility]RO GENITAL FLORABerger Hospital Comment on above:Performed By: #### UC ####[facility] (TT)[address] [facility] [address], [place] [address] VIRBEDSIDE GLUCOSEon 06-12-2025 Glucose [Mass/Vol]229 mg/bOBwnd86-91GelWutdin18 Harris StreetComment on above: Performed By: #### BEDG ####[facility] ([facility])[address] [place] [address] AVE.[place], [id number] VIRGlucose [Mass/Vol]229 mg/gIZkzz66-22ZbuSutulr18 Harris StreetComment on above:Performed By: #### BEDG ####[facility] ([address], [id number] VIRGlucose [Mass/Vol] 262 mg/uJScnn90-36BvgEqznjn79 [address] StreetComment on above:Performed By: #### BEDG ####[facility] ([address] [place] [address] VIRGlucose [Mass/Vol]184 mg/pEXtdi54-33KcnUrdyjj79 Jones StreetComment on above:Performed By: #### BEDG ####[facility] ([address], [id number] VIRCBC WITH AUTO DIFFERENTIALon [id number] ABSOLUTE COUNT (10*3/UL) BY AUTOMATED COUNT0.1 10*3/uLNormal 0.0-0.2Pro[facility] Mercy Medical CenterComment on above:Performed By: #### CBCA ####[facility] ([address], [id number] VIRBASOPHILS RELATIVE PERCENT BY AUTOMATED COUNT1.3 %NormalBlanchard Valley Health SystemComment on above:Performed By: #### CBCA ####[facility] ([address] [address], [id number] VIRCELLAVISION DIFFERENTIAL TYPEAUTOMATED DIFFERENTIALNormalBlanchard Valley Health SystemComment on above: Performed By: #### CBCA ####[facility] ([address], [id number] VIREosinophils (Bld) [#/Vol]0.3 10*3/uLNormal0.0-0.4 [facility] SystemComment on above:Performed By: #### CBCA ####[facility] ([address], [id number] VIR EOSINOPHILS RELATIVE PERCENT BY AUTOMATED COUNT3.4 %NormalBlanchard Valley Health SystemComment on above:Performed By: #### CBCA ####[facility] ([address], [id number] VIRErythrocyte distribution width (RBC) [Ratio]16.1 %High11.5-15[facility] Health SystemComment on above: Performed By: #### CBCA ####[facility] ([address], [id number] VIRHematocrit (Bld) [Volume fraction]32.8 %Dap60-51 [facility] SystemComment on above:Performed By: #### CBCA ####[facility] ([address], [id number] VIRHemoglobin (Bld) [Mass/Vol]10.9 g/dLLow11.7-15.5PMercy HealthComment on above: Performed By: #### CBCA ####[facility] ([address], [id number] VIRLYMPHOCYTES ABSOLUTE COUNT (10*3/UL) BY AUTOMATED COUNT2.2 10*3/uLNormal1.0-3.5PMercy HealthComment on above: Performed By: #### CBCA ####[facility] ([address], [id number] VIRLYMPHOCYTES RELATIVE PERCENT BY AUTOMATED COUNT29.1 %NormalProBaptist Saint Anthony'S HospitalComment on above:Performed By: #### CBCA ####[facility] ([address], [id number] VIRMCH (RBC) [Entitic mass]26.5 kmJpi75-90RejKgyavtBlanchard Valley Health SystemComment on above:Performed By: #### CBCA ####[facility] ([address], [place] VIRMCHC (RBC) [Mass/Vol]33.2 g/nNGwwrid98-84 [facility] SystemComment on above:Performed By: #### CBCA ####[facility] ([address], [id number] VIRMCV (RBC) [Entitic vol]80 kZWrtstu48-553WliZydrecBlanchard Valley Health SystemComment on above: Performed By: #### CBCA ####[facility] ([address], [id number] VIRMONOCYTES ABSOLUTE COUNT (10*3/UL) BY AUTOMATED COUNT1.0 10*3/uLHigh0.0-0.9[facility] SystemComment on above:Performed By: #### CBCA ####[facility] ([address], [id number] VIRMONOCYTES RELATIVE PERCENT BY AUTOMATED COUNT13.9 % NormalBlanchard Valley Health SystemComment on above:Performed By: #### CBCA ####[facility] ([address], [id number] VIRNEUTROPHILS ABSOLUTE COUNT BY AUTOMATED COUNT3.9 10*3/uLNormal1.5-6.6 [facility] SystemComment on above:Performed By: #### CBCA ####[address], [id number] VIR NEUTROPHILS RELATIVE PERCENT BY AUTOMATED COUNT52.3 %NormalBlanchard Valley Health SystemComment on above:Performed By: #### CBCA ####[facility] ([address], [id number] VIRPlatelet mean volume (Bld) [Entitic vol]9.1 fLNormal7-12PMercy HealthComment on above: Performed By: #### CBCA ####[facility] ([address], [id number] VIRPlatelets (Bld) [#/Vol]233 10*3/mRFrewjf002-988 [facility] SystemComment on above:Performed By: #### CBCA ####[address], [id number] VIRRBC COUNT 4.11 X10E12/LNormal3.8-5.2PMercy HealthComment on above:Performed By: #### CBCA ####[facility] ([address], [id number] VIRWBC (Bld) [#/Vol]7.4 10*3/uLNormal4-11[facility] SystemComment on above:Performed By: #### CBCA ####[facility] ([address], [id number] VIRCOMPREHENSIVE METABOLIC PANELon 55-50-8263Zqeocoi [Mass/Vol]3.2 g/dLNormal3.2-5.3PMercy HealthComment on above:Performed By: #### CMP ####[facility] ([address] [place] [address] VIRALP [Catalytic activity/Vol]115 U/LLyoilc76-677PvgPanhcdBaptist Saint Anthony'S HospitalComment on above: Performed By: #### CMP ####[address] [place] [address] VIRALT [Catalytic activity/Vol]12 U/LNormal<=31 [facility] SystemComment on above:Performed By: #### CMP ####[facility] ([address] [place] [address] VIRAnion gap [Moles/Vol]11 mmol/LNormal5-15ProBaptist Saint Anthony'S HospitalComment on above: Performed By: #### CMP ####[facility] ([address] [place] [address] VIRAST [Catalytic activity/Vol]21 U/LNormal<=41 [facility] SystemComment on above:Performed By: #### CMP ####[address] [place] [address] VIRBilirubin [Mass/Vol]0.6 mg/dLNormal0.3-1.2PMercy HealthComment on above: Performed By: #### CMP ####[facility] ([address] [place] [address] VIRCalcium [Mass/Vol]8.9 mg/dLNormal8.5-10.5PMercy HealthComment on above:Performed By: #### CMP ####[facility] ([address] [place] [address] VIRChloride [Moles/Vol]101 mmol/MOyecbm20-000CmdXfotcoBaptist Saint Anthony'S HospitalComment on above: Performed By: #### CMP ####[facility] ([address] [place] [address] VIRCO2 [Moles/Vol]25 mmol/NGuzfmk71-60RezQsrddeMercy HealthComment on above:Performed By: #### CMP ####[address] [place] [address] VIRCreatinine [Mass/Vol]1.21 mg/dLHigh0.40-1.00ProBaptist Saint Anthony'S HospitalComment on above: Result Comment: METHOD TRACEABLE TO IDMS STANDARDPerformed By: #### CMP ####[address] [address] VIRGFR/1.73 sq M.predicted among non-blacks MDRD (S/P/Bld) [Vol rate/Area] 46 mL/min/{1.73_m2}Low>=60ProBaptist Saint Anthony'S HospitalComment on above:Result Comment: eGFR not reported due to non-numeric value for Creatinine.Reported eGFR is based ontheCKD-EPI 2020 equation that doesnot use a race coefficient. Performed By: #### CMP ####[facility] ([address] [place] [address] VIRGlucose [Mass/Vol]157 mg/gFGswx21-57EbeCxxufuBaptist Saint Anthony'S HospitalComment on above:Performed By: #### CMP ####[facility] ([address] [place] [address] VIRPotassium [Moles/Vol]4.1 mmol/LNormal3.5-5.0ProBaptist Saint Anthony'S HospitalComment on above: Performed By: #### CMP ####[facility] ([facility])[address] [place] [address] [place] [address] VIRProtein [Mass/Vol]7.2 g/dLNormal6.0-8.0ProBaptist Saint Anthony'S HospitalComment on above:Performed By: #### CMP ####[facility] ([facility])[address] [place] [address] [place] [address] VIRSodium [Moles/Vol]137 mmol/PVguunz743-772ZjvCakctf Fremont HospitalComment on above: Performed By: #### CMP ####[facility] ([address] [place] [address] VIRUrea nitrogen [Mass/Vol]18 mg/dLNormal5-27 ProMKaiser Permanente Medical CenterComment on above:Performed By: #### CMP ####[facility] ([facility])[address] [place] [address].[place] [address] VIRMAGNESIUM on 84-41-2488Mrkrrkooy [Mass/Vol]2.4 mg/dLNormal1.8-2.6ProBaptist Saint Anthony'S HospitalComment on above:Performed By: #### MG ####[facility] ([facility])[address] [place] [address] [place] [address] VIRAPTTon 97-79-6571rLVG Coag (Bld) [Time]27 qFvqmys18-70YxtVyfrgsBaptist Saint Anthony'S HospitalComment on above:Performed By: #### PTT ####[facility] ([facility])[address] [place] [address] [place] [address] VIRB-TYPE NATRIURETIC PEPTIDEon 60-73-8923Yfxokxmkxgf peptide B (Bld) [Mass/Vol]161 pg/mLHigh<=100ProMedica Effingham HospitalComment on above:Performed By: #### BNP ####[facility] ([address] [place] [address] VIRBEDSIDE GLUCOSEon 04-82-8561Yvyogzk [Mass/Vol]177 mg/vYTkvj63-45KlbAonllvBlanchard Valley Health SystemComment on above:Performed By: #### BEDG ####[facility] ([address], [id number] VIRGlucose [Mass/Vol]197 mg/wGHcpi99-95YnhAjaeloBlanchard Valley Health SystemComment on above:Performed By: #### BEDG ####[facility] ([address], [id number] VIRGlucose [Mass/Vol]151 mg/dL [address] StreetComment on above:Performed By: #### BEDG ####[facility] ([address], [id number] VIRGlucose [Mass/Vol]185 mg/mWOrov24-69AysYsqsuj79 [address] StreetComment on above:Performed By: #### BEDG ####[facility] ([address], [id number] VIRCBC WITH AUTO DIFFERENTIALon 06-11-2025 BASOPHILS ABSOLUTE COUNT (10*3/UL) BY AUTOMATED COUNT0.0 10*3/uLNormal0.0-0.2 [facility] SystemComment on above:Performed By: #### CBCA ####[facility] ([address], [id number] VIRBASOPHILS RELATIVE PERCENT BY AUTOMATED COUNT0.4 %NormalBlanchard Valley Health SystemComment on above:Performed By: #### CBCA ####[facility] ([address], [id number] VIRCELLAVISION DIFFERENTIAL TYPE AUTOMATED DIFFERENTIALNormalProBaptist Saint Anthony'S HospitalComment on above:Performed By: #### CBCA ####[facility] ([address] [id number] VIREosinophils (Bld) [#/Vol]0.1 10*3/uLNormal0.0-0.4 [facility] SystemComment on above:Performed By: #### CBCA ####[facility] ([address], [id number] VIR EOSINOPHILS RELATIVE PERCENT BY AUTOMATED COUNT0.6 %NormalBlanchard Valley Health SystemComment on above:Performed By: #### CBCA ####[facility] ([address], [id number] VIRErythrocyte distribution width (RBC) [Ratio]16.2 %High11.5-15[facility] SystemComment on above: Performed By: #### CBCA ####[facility] ([address], [id number] VIRHematocrit (Bld) [Volume fraction]31.6 %Vzw28-22 [facility] SystemComfresenius medical care at care[facility] of [place] on above:Performed By: #### CBCA ####[address], [id number] VIRHemoglobin (Bld) [Mass/Vol]10.4 g/dLLow11.7-15.5PMercy HealthComment on above: Performed By: #### CBCA ####[facility] ([address], [id number] VIRLYMPHOCYTES ABSOLUTE COUNT (10*3/UL) BY AUTOMATED COUNT1.4 10*3/uLNormal1.0-3.5PMercy HealthComment on above: Performed By: #### CBCA ####[facility] ([address], [id number] VIRLYMPHOCYTES RELATIVE PERCENT BY AUTOMATED COUNT13.4 %NormalProBaptist Saint Anthony'S HospitalComment on above:Performed By: #### CBCA ####[facility] ([address], [id number] VIRMCH (RBC) [Entitic mass]26.3 opGrq00-08BzaGgppboBaptist Saint Anthony'S HospitalComment on above:Performed By: #### CBCA ####[facility] ([address], [id number] VIRMCHC (RBC) [Mass/Vol]32.8 g/rZTuxzgk31-94 [facility] SystemComment on above:Performed By: #### CBCA ####[facility] ([address], [id number] VIRMCV (RBC) [Entitic vol]80 dEDspmwc71-220HmgBkomja [facility]remont HospitalComment on above: Performed By: #### CBCA ####[facility] ([address], [id number] VIRMONOCYTES ABSOLUTE COUNT (10*3/UL) BY AUTOMATED COUNT0.9 10*3/uLNormal0.0-0.9[facility] SystemComment on above: Performed By: #### CBCA ####[facility] ([address], [id number] VIRMONOCYTES RELATIVE PERCENT BY AUTOMATED COUNT8.8 % NormalProBaptist Saint Anthony'S HospitalComment on above:Performed By: #### CBCA ####[facility] ([address], [id number] VIRNEUTROPHILS ABSOLUTE COUNT BY AUTOMATED COUNT8.3 10*3/uLHigh1.5-6.6ProBaptist Saint Anthony'S HospitalComment on above:Performed By: #### CBCA ####[facility] ([address], [id number] VIRNEUTROPHILS RELATIVE PERCENT BY AUTOMATED COUNT76.8 %NormalProBaptist Saint Anthony'S HospitalComment on above:Performed By: #### CBCA ####[facility] ([facility])[address] [place] [address] AVE.[place], [id number] VIRPlatelet mean volume (Bld) [Entitic vol]8.2 fLNormal7-12PMercy HealthComment on above:Performed By: #### CBCA ####[facility] ([facility])[address] [place] [address] [place], [id number] VIRPlatelets (Bld) [#/Vol]318 10*3/bEDuvpiy901-778CjhXvwyps [facility]remont HospitalComment on above:Performed By: #### CBCA ####[facility] ([address], [id number] VIRRBC COUNT3.94 X10E12/LNormal3.8-5.2PMercy HealthComment on above:Performed By: #### CBCA ####[facility] ([facility])[address] [place] [address] AVE.[place], [id number] VIRWBC (Bld) [#/Vol]10.8 10*3/uLNormal4-11ProBaptist Saint Anthony'S HospitalComment on above:Performed By: #### CBCA ####[facility] ([facility])[address] [place] [address] AVE.[place], [id number] VIRCK TOTALon 60-46-5694DIM28 U/XJkjnty37-833FeaTkpkvnBaptist Saint Anthony'S HospitalComment on above:Performed By: #### CPK ####[facility] ([facility])[address] [place] [address] [place] [address] VIRCOMPREHENSIVE METABOLIC PANELon 80-38-2765Gargchs [Mass/Vol]3.8 g/dL Normal3.2-5.3ProMedica Effingham HospitalComment on above:Performed By: #### CMP ####[facility] ([place] [address], [place] [address] VIRALP [Catalytic activity/Vol]128 U/RBpdygw43-323PisEopxgbBaptist Saint Anthony'S HospitalComment on above:Performed By: #### CMP ####[facility] ([address] [place] [address] VIRALT [Catalytic activity/Vol]14 U/LNormal<=31ProMedica Mercy Medical CenterComment on above: Performed By: #### CMP ####[facility] ([address] [place] [address] VIRAnion gap [Moles/Vol]15 mmol/LNormal5-15ProBaptist Saint Anthony'S HospitalComment on above:Performed By: #### CMP ####[facility] ([address] [place] [address] VIRAST [Catalytic activity/Vol]25 U/LNormal<=41ProBaptist Saint Anthony'S HospitalComment on above: Performed By: #### CMP ####[facility] ([address] [place] [address] VIRBilirubin [Mass/Vol]1.1 mg/dLNormal0.3-1.2 [facility] SystemComment on above:Performed By: #### CMP ####[facility] ([address] [place] [address] VIRCalcium [Mass/Vol]9.1 mg/dLNormal8.5-10.5PMercy HealthComment on above: Performed By: #### CMP ####[facility] ([place] [address] [place] [address] VIRChloride [Moles/Vol]98 mmol/NZakjkl11-282FtqDexabe [facility] HospitalComment on above:Performed By: #### CMP ####[facility] [place] [address] VIRCO2 [Moles/Vol]20 mmol/YFsl54-54MwvMcwyct Mercy Medical CenterComment on above:Performed By: #### CMP ####[facility] ([address], [place] [address] VIRCreatinine [Mass/Vol]1.32 mg/dLHigh0.40-1.00[facility] Comment on above:Result Comment: METHOD TRACEABLE TO IDMS STANDARDPerformed By: #### CMP ####[facility] ([address] [place] [address] VIRGFR/1.73 sq M.predicted among non-blacks MDRD (S/P/Bld) [Vol rate/Area]41 mL/min/{1.73_m2}Low>=60ProBaptist Saint Anthony'S HospitalComment on above:Result Comment: eGFR not reported due to non-numeric value for Creatinine.Reported eGFR is based ontheCKD-EPI 2021 equation that doesnot use a race coefficient.Performed By: #### CMP ####[facility] ([address] [place] [address] VIRGlucose [Mass/Vol]209 mg/dLHigh 65-99ProBaptist Saint Anthony'S HospitalComment on above:Performed By: #### CMP ####[facility] ([address], [place] [address] VIRPotassium [Moles/Vol]3.8 mmol/LNormal3.5-5.0[facility] Comment on above:Performed By: #### CMP ####[facility] ([address] [place] [address] VIRProtein [Mass/Vol]8.1 g/dLHigh 6.0-8.0[facility] SystemComment on above:Performed By: #### CMP ####[facility] ([address], [place] [address] VIRSodium [Moles/Vol]133 mmol/ZZal269-723HxcHfehra [facility] HospitalComment on above:Performed By: #### CMP ####[facility] ([address] [place] [address] VIRUrea nitrogen [Mass/Vol]19 mg/dLNormal5- [facility] HospitalComment on above:Performed By: #### CMP ####[facility] ([address] [place] [address] VIRCT ABDOMEN AND PELVIS WO CONTon 83-59-7665SH ABDOMEN AND PELVIS WO CONTNormal [facility] SystemHEMOGLOBINon 91-78-2711Ldvzxxvksk (Bld) [Mass/Vol]10.3 g/dLLow11.7-15.5ProMedMenlo Park VA HospitalComment on above:Performed By: #### HGB ####[facility] ([address] [place] [address] VIRMAGNESIUMon 02-44-6182Tqyuqlupc [Mass/Vol]1.7 mg/dLLow1.8-2.6[facility] SystemComment on above:Performed By: #### MG ####[facility] ([address] [place] [address] VIRMagnesium [Mass/Vol]1.6 mg/dLLow1.8-2.6ProBaptist Saint Anthony'S HospitalComment on above: Performed By: #### MG ####[facility] ([address] [place] [address] VIRPLATELET COUNTon 09-51-3154Xzkznecs mean volume (Bld) [Entitic vol]8.7 fLNormal7-12PMercy HealthComment on above: Performed By: #### PLTCT ####[facility] ([address] [place] [address] VIRPlatelets (Bld) [#/Vol]287 10*3/lZCxhbld553-673 [facility] SystemComment on above:Performed By: #### PLTCT ####[facility] ([facility])[address] [place] [address].[place] [address] VIRTHYROID PROFILE INCLUDES TSH FT4on 81-16-8696Neta T4 [Mass/Vol]1.59 ng/dLNormal0.61-1.60[facility] SystemComment on above:Performed By: #### THYR ####[facility] ([address] VIRTSH2.32 uIU/mLNormal0.49-4.67[facility] Comment on above:Performed By: #### THYR ####[facility] ([address] VIRTROP I, HIGH SENSITIVITY 1 HOURon 01-96-3081JVFXYCRF I, HIGH PKTTWSJAHMC25 ng/LNormal<16[facility] Comment on above:Performed By: #### TNIHS1 ####[facility] ([address] [address] VIRTROPONIN I, HIGH SENSITIVITY 0 HOURon 15-13-6067GTKTHOVL I, HIGH TTZFQQLKREL76 ng/LNormal<16 [facility] SystemComment on above:Performed By: #### TNIHS0 ####[facility] ([address] [place] [address] VIRXR CHEST 1 VWon 35-84-4986OZ CHEST 1 [facility] CBC WITH AUTO DIFFERENTIALon 28-51-2774WRNGZGGUI ABSOLUTE COUNT (10*3/UL) BY AUTOMATED COUNT0.1 10*3/uLNormal0.0-0.2PMercy HealthComment on above:Performed By: #### CBCA ####[facility] ([address], [id number] VIRBASOPHILS RELATIVE PERCENT BY AUTOMATED COUNT 0.5 %NormalBlanchard Valley Health SystemComment on above:Performed By: #### CBCA ####[facility] ([address], [id number] VIRCELLAVISION DIFFERENTIAL TYPEAUTOMATED DIFFERENTIALNormalProBaptist Saint Anthony'S HospitalComment on above:Performed By: #### CBCA ####[facility] ([address], [id number] VIREosinophils (Bld) [#/Vol] 0.1 10*3/uLNormal0.0-0.4[facility] SystemComment on above:Performed By: #### CBCA ####[facility] ([address], [place] VIREOSINOPHILS RELATIVE PERCENT BY AUTOMATED COUNT0.8 % NormalBlanchard Valley Health SystemComment on above:Performed By: #### CBCA ####[facility] ([address], [id number] VIRErythrocyte distribution width (RBC) [Ratio]15.9 %High11.5-15[facility] SystemComment on above:Performed By: #### CBCA ####[facility] ([address], [id number] VIRHematocrit (Bld) [Volume fraction]32.3 %Bzi13-53SikUtneqzBaptist Saint Anthony'S HospitalComment on above: Performed By: #### CBCA ####[facility] ([address], [id number] VIRHemoglobin (Bld) [Mass/Vol]10.7 g/dLLow11.7-15.5 [facility] SystemComment on above:Performed By: #### CBCA ####[facility] ([facility])[address] [place], [place] [address]E.[place], [id number] VIR LYMPHOCYTES ABSOLUTE COUNT (10*3/UL) BY AUTOMATED COUNT1.3 10*3/uLNormal1.0-3.5 [facility] SystemComment on above:Performed By: #### CBCA ####[facility] ([facility])[address] [place] [address] AVE.[place], [id number] VIR LYMPHOCYTES RELATIVE PERCENT BY AUTOMATED COUNT12.4 %[facility] HospitalComment on above:Performed By: #### CBCA ####[facility] ([facility])[address] [place] [address].[place], [id number] VIRMCH (RBC) [Entitic mass] 26.7 peMju66-26IfaDbcbnwBlanchard Valley Health SystemComment on above:Performed By: #### CBCA ####[facility] ([address] [place] [address] VIRMCHC (RBC) [Mass/Vol]33.3 g/qJYrpvmm50-21YhyKlynwhBlanchard Valley Health System Comment on above:Performed By: #### CBCA ####[facility] ([facility])[address] [place] [address].[place], [id number] VIRMCV (RBC) [Entitic vol]80 fLNormal 80-100Bl[facility] Health SystemComment on above:Performed By: #### CBCA ####[facility] ([facility])[address] [place], [place] [address]E.[place], [id number] VIRMONOCYTES ABSOLUTE COUNT (10*3/UL) BY AUTOMATED COUNT0.8 10*3/uLNormal0.0-0.9 [facility] SystemComment on above:Performed By: #### CBCA ####[facility] ([facility])[address] [place], [place] [address]E.[place], [id number] VIRMONOCYTES RELATIVE PERCENT BY AUTOMATED COUNT8.1 %NormalBlanchard Valley Health SystemComment on above:Performed By: #### CBCA ####[facility] ([facility] [address] [place], [id number] VIRNEUTROPHILS ABSOLUTE COUNT BY AUTOMATED COUNT8.1 10*3/uLHigh1.5-6.6ProBaptist Saint Anthony'S HospitalComment on above: Performed By: #### CBCA ####[facility] ([facility] [address], [id number] VIRNEUTROPHILS RELATIVE PERCENT BY AUTOMATED COUNT78.2 %NormalProBaptist Saint Anthony'S HospitalComment on above:Performed By: #### CBCA ####[facility] ([address], [id number] VIRPlatelet mean volume (Bld) [Entitic vol]7.7 fLNormal7-12PMercy HealthComment on above:Performed By: #### CBCA ####[facility] ([address], [id number] VIRPlatelets (Bld) [#/Vol]305 10*3/tCPhiynv309-136EhoZedxuq Fremont HospitalComment on above:Performed By: #### CBCA ####[facility] ([facility])[address] [place], [place] [address] AVE.[place], [id number] VIRRBC COUNT4.02 X10E12/LNormal3.8-5.2PMercy HealthComment on above:Performed By: #### CBCA ####[facility] ([address], [id number] VIRWBC (Bld) [#/Vol]10.3 10*3/uLNormal4-11Bl[facility] Health SystemComment on above:Performed By: #### CBCA ####[facility] ([facility] [address] [address] VIRCOMPREHENSIVE METABOLIC PANELon [id number] [Mass/Vol]3.7 g/dL Normal3.2-5.3PMercy HealthComment on above:Performed By: #### CMP ####[facility] ([place] [address], [place] [address] VIRALP [Catalytic activity/Vol]130 U/FQqeban58-135CpiCpndklBaptist Saint Anthony'S HospitalComment on above:Performed By: #### CMP ####[facility] ([place] [address] [place] [address] VIRALT [Catalytic activity/Vol]15 U/LNormal<=31PMercy HealthComment on above: Performed By: #### CMP ####[facility] ([place] [address] [place] [address] VIRAnion gap [Moles/Vol]15 mmol/LNormal5-15ProBaptist Saint Anthony'S HospitalComment on above:Performed By: #### CMP ####[facility] ([place] [address] [place] [address] VIRAST [Catalytic activity/Vol]21 U/LNormal<=41ProBaptist Saint Anthony'S HospitalComment on above: Performed By: #### CMP ####[facility] ([place] [address] [place] [address] VIRBilirubin [Mass/Vol]1.2 mg/dLNormal0.3-1.2 [facility] SystemComment on above:Performed By: #### CMP ####[facility] ([place] [address] [place] [address] VIRCalcium [Mass/Vol]9.6 mg/dLNormal8.5-10.5PMercy HealthComment on above: Performed By: #### CMP ####[facility] ([place] [address] [address] VIRChloride [Moles/Vol]97 mmol/QAgx18-309ExpNuhncvBaptist Saint Anthony'S HospitalComment on above:Performed By: #### CMP ####[facility] ([address] [place] [address] VIRCO2 [Moles/Vol]23 mmol/HAcxrqn39-77FsrCiquia Fremont HospitalComment on above:Performed By: #### CMP ####[facility] ([address] [address] VIRCreatinine [Mass/Vol]1.36 mg/dLHigh0.40-1.00[facility] Comment on above:Result Comment: METHOD TRACEABLE TO IDMS STANDARDPerformed By: #### CMP ####[facility] ([address] [address] VIRGFR/1.73 sq M.predicted among non-blacks MDRD (S/P/Bld) [Vol rate/Area]40 mL/min/{1.73_m2}Low>=60[facility] SystemComment on above:Result Comment: eGFR not reported due to non-numeric value for Creatinine.Reported eGFR is based ontheCKD-EPI 2020 equation that doesnot use a race coefficient.Performed By: #### CMP ####[facility] ([address] [address] VIRGlucose [Mass/Vol]204 mg/dLHigh 65-99ProBaptist Saint Anthony'S HospitalComment on above:Performed By: #### CMP ####[facility] ([address] [address] VIRPotassium [Moles/Vol]4.9 mmol/LNormal3.5-5.0[facility] Comment on above:Performed By: #### CMP ####[facility] ([address] [address] VIRProtein [Mass/Vol]8.3 g/dLHigh 6.0-8.0ProBaptist Saint Anthony'S HospitalComment on above:Performed By: #### CMP ####[facility] ([address] [address] VIRSodium [Moles/Vol]135 mmol/OYnclri868-513CcePhhjoe [facility] Comment on above:Performed By: #### CMP ####[facility] ([address] [place] [address] VIRUrea nitrogen [Mass/Vol]18 mg/dL Normal-27ProBaptist Saint Anthony'S HospitalComment on above:Performed By: #### CMP ####[facility] ([address] [address] VIRPOCT NURSING URINE MACROSCOPIC UAon 14-80-8395TDUHDNSZS NURModerate AbnormalNegativeBlanchard Valley Health SystemComment on above:Performed By: #### NUM ####[facility] ([address] [address] VIRBLOOD/HGB NURTraceAbnormalNegativeBlanchard Valley Health SystemComment on above:Performed By: #### NUM ####[facility] ([address] [address] VIRGLUCOSE NURNegativeNormalNegativeBlanchard Valley Health SystemComment on above:Performed By: #### NUM ####[facility] ([address] [place] [address] VIRKETONES NUR40 mg/dLAbnormalNegativeBlanchard Valley Health SystemComment on above:Performed By: #### NUM ####[facility] ([address] [address] VIRLEUKOCYTE ESTERASE NURTraceAbnormalNegativeBlanchard Valley Health SystemComment on above:Performed By: #### NUM ####[facility] ([address] [address] VIRNITRITE MARYJO NegativeNormalNegativeBlanchard Valley Health SystemComment on above:Performed By: #### NUM ####[facility] ([address] [place] [address] VIRPH NUR5.7Jfycdh7.0, 6.0, 6.5, 7.0, 7.5, 8.0, 8.5, 5.5 [facility] SystemComment on above:Performed By: #### NUM ####[facility] ([address] [place] [address] VIRPROTEIN SVZ786 mg/dLAbnormalNegativeBlanchard Valley Health SystemComment on above:Performed By: #### NUM ####[facility] ([address] [place] [address] VIRSPECIFIC GRAVITY MARYJO>=1.059Vlrforko0.010, 1.015, 1.020, 1.025ProBaptist Saint Anthony'S HospitalComment on above:Performed By: #### NUM ####[facility] ([address], [place] [address] VIRUROBILINOGEN NUR0.2 E.U./dLNormalBlanchard Valley Health SystemComment on above:Performed By: #### NUM ####[facility] ([address] [place] [address] VIRURINE CULTUREon 17-61-1124Hpbjicfm identified Cx Nom (U)CULTURE RESULTS MULTIPLE SPECIES PRESENT. PROBABLE COLLECTION CONTAMINATION. SUGGEST REPEAT SPECIMEN.NormalProBaptist Saint Anthony'S HospitalComment on above:Performed By: #### UC ####[facility] ([facility])[address] [facility] [address] [address] VIRB-TYPE NATRIURETIC PEPTIDEon 68-09-7320Plfftmozedp peptide B (Bld) [Mass/Vol]85 pg/mLNormal<=100ProBaptist Saint Anthony'S HospitalComment on above: Performed By: #### BNP ####[facility] ([address] [place] [address] VIRBASIC METABOLIC PANELon 08-39-4300Tkgfe gap [Moles/Vol]10 mmol/LNormal5-15ProBaptist Saint Anthony'S HospitalComment on above: Performed By: #### BMP ####[facility] ([address] [place] [address] VIRCalcium [Mass/Vol]9.3 mg/dLNormal8.5-10.5PMercy HealthComment on above:Performed By: #### BMP ####[facility] ([address] [place] [address] VIRChloride [Moles/Vol]101 mmol/YJsrtun58-698YuiEprwyvBaptist Saint Anthony'S HospitalComment on above: Performed By: #### BMP ####[facility] ([address] [place] [address] VIRCO2 [Moles/Vol]24 mmol/QRvtvus73-63PfrNhndzhMercy HealthComment on above:Performed By: #### BMP ####[facility] ([address] [address] VIRCreatinine [Mass/Vol]1.31 mg/dLHigh0.40-1.00ProBaptist Saint Anthony'S HospitalComment on above: Result Comment: METHOD TRACEABLE TO IDMS STANDARDPerformed By: #### BMP ####[facility] ([address] [address] VIRGFR/1.73 sq M.predicted among non-blacks MDRD (S/P/Bld) [Vol rate/Area] 42 mL/min/{1.73_m2}Low>=60ProBaptist Saint Anthony'S HospitalComment on above:Result Comment: eGFR not reported due to non-numeric value for Creatinine.Reported eGFR is based ontheCKD-EPI 2020 equation that doesnot use a race coefficient. Performed By: #### BMP ####[facility] ([address] [place] [address] VIRGlucose [Mass/Vol]174 mg/aQUtea91-10NpmHcoombBaptist Saint Anthony'S HospitalComment on above:Performed By: #### BMP ####[facility] ([address] [place] [address] VIRPotassium [Moles/Vol]4.2 mmol/LNormal3.5-5.0ProBaptist Saint Anthony'S HospitalComment on above: Performed By: #### BMP ####[facility] ([address] [place] [address] VIRSodium [Moles/Vol]135 mmol/UIlkxwu766-386VzsNfqiig Fremont HospitalComment on above:Performed By: #### BMP ####[address] [place] [address] VIRUrea nitrogen [Mass/Vol]14 mg/dLNormal5-27ProBaptist Saint Anthony'S HospitalComment on above:Performed By: #### BMP ####[facility] ([address] [place] [address] VIRCBC WITH AUTO DIFFERENTIALon 15-40-5001XETPMVKXD ABSOLUTE COUNT (10*3/UL) BY AUTOMATED COUNT0.0 10*3/uLNormal0.0-0.2ProMedica Mercy Medical CenterComfresenius medical care at [facility] [place] on above:Performed By: #### CBCA ####[facility] ([address] [id number] VIRBASOPHILS RELATIVE PERCENT BY AUTOMATED COUNT0.5 %NormalProBaptist Saint Anthony'S HospitalComment on above:Performed By: #### CBCA ####[facility] [address] [id number] VIRCELLAVISION DIFFERENTIAL TYPEAUTOMATED DIFFERENTIALNormalProBaptist Saint Anthony'S HospitalComment on above:Performed By: #### CBCA ####[facility] ([address] [address] VIREosinophils (Bld) [#/Vol]0.2 10*3/uLNormal0.0-0.4[facility] SystemComment on above:Performed By: #### CBCA ####[facility] ([address], [id number] VIREOSINOPHILS RELATIVE PERCENT BY AUTOMATED COUNT2.4 %NormalProBaptist Saint Anthony'S HospitalComment on above: Performed By: #### CBCA ####[facility] ([address], [id number] VIRErythrocyte distribution width (RBC) [Ratio]15.7 % High11.5-15ProBaptist Saint Anthony'S HospitalComment on above:Performed By: #### CBCA ####[facility] ([address], [id number] VIRHematocrit (Bld) [Volume fraction]32.1 %Odm04-62ScmZembuxBlanchard Valley Health System Comment on above:Performed By: #### CBCA ####[facility] ([address], [id number] VIRHemoglobin (Bld) [Mass/Vol]10.5 g/dL Low11.7-15.5PMercy HealthComment on above:Performed By: #### CBCA ####[facility] ([address], [place] VIRLYMPHOCYTES ABSOLUTE COUNT (10*3/UL) BY AUTOMATED COUNT1.5 10*3/uLNormal 1.0-3.5PMercy HealthComment on above:Performed By: #### CBCA ####[facility] ([address], [place] VIRLYMPHOCYTES RELATIVE PERCENT BY AUTOMATED COUNT18.7 %NormalProBaptist Saint Anthony'S HospitalComment on above:Performed By: #### CBCA ####[facility] ([address], [id number] VIRMCH (RBC) [Entitic mass] 26.4 xaSrq79-62KizHnhzdoBaptist Saint Anthony'S HospitalComment on above:Performed By: #### CBCA ####[facility] ([address] [place] [address] VIRMCHC (RBC) [Mass/Vol]32.7 g/fHDfbxpw99-11PgxNkegvdBlanchard Valley Health System Comment on above:Performed By: #### CBCA ####[facility] ([address], [id number] VIRMCV (RBC) [Entitic vol]81 fLNormal 80-100ProBaptist Saint Anthony'S HospitalComment on above:Performed By: #### CBCA ####[facility] ([address], [id number] VIRMONOCYTES ABSOLUTE COUNT (10*3/UL) BY AUTOMATED COUNT0.7 10*3/uLNormal0.0-0.9 [facility] SystemComment on above:Performed By: #### CBCA ####[facility] ([address], [place] VIRMONOCYTES RELATIVE PERCENT BY AUTOMATED COUNT9.1 %NormalProBaptist Saint Anthony'S HospitalComment on above:Performed By: #### CBCA ####[facility] ([address], [id number] VIRNEUTROPHILS ABSOLUTE COUNT BY AUTOMATED COUNT5.6 10*3/uLNormal1.5-6.6ProBaptist Saint Anthony'S HospitalComment on above:Performed By: #### CBCA ####[facility] ([address], [id number] VIRNEUTROPHILS RELATIVE PERCENT BY AUTOMATED COUNT69.3 %NormalProBaptist Saint Anthony'S HospitalComment on above:Performed By: #### CBCA ####[facility] ([facility])[address] [place] [address] [place] [address] VIRPlatelet mean volume (Bld) [Entitic vol]8.0 fLNormal7-12PMercy HealthComment on above:Performed By: #### CBCA ####[facility] ([facility])[address] [place] [address] AVE.[place], [id number] VIRPlatelets (Bld) [#/Vol]317 10*3/yRQteolf639-776SntOquamy Fremont HospitalComment on above: Performed By: #### CBCA ####[facility] ([address] [id number] VIRRBC COUNT3.98 X10E12/LNormal3.8-5.2PMercy HealthComment on above:Performed By: #### CBCA ####[facility] ([address] [id number] VIRWBC (Bld) [#/Vol] 8.1 10*3/uLNormal4-11ProBaptist Saint Anthony'S HospitalComment on above:Performed By: #### CBCA ####[facility] ([address] [id number] VIRMAGNESIUMon 77-72-2179Jlktalzbl [Mass/Vol]1.8 mg/dL Normal1.8-2.6ProBaptist Saint Anthony'S HospitalComment on above:Performed By: #### MG ####[facility] ([facility])[address] [place] [address].[facility] [place] [address] VIRPOCT NURSING URINE MACROSCOPIC UAon 43-29-7230HIERMDPXU NURNegativeNormal NegativeProBaptist Saint Anthony'S HospitalComment on above:Performed By: #### NUM ####[facility] ([facility] [address], [place] [address] VIRBLOOD/HGB NURNegativeNormalNegativeProBaptist Saint Anthony'S HospitalComment on above:Performed By: #### NUM ####[facility] ([facility])[address] [place], [place] [address] [place] [address] VIRGLUCOSE NURNegativeNormalNegativeProBaptist Saint Anthony'S HospitalComment on above:Performed By: #### NUM ####[facility] ([address] [place] [address] VIRKETONES NURTrace AbnormalNegativeBlanchard Valley Health SystemComment on above:Performed By: #### NUM ####[facility] ([address] [place] [address] VIRLEUKOCYTE ESTERASE NURLargeAbnormalNegativeGrant Hospital on above:Performed By: #### NUM ####[facility] ([address] [place] [address] VIRNITRITE NURNegativeNormalNegative [facility] SystemComment on above:Performed By: #### NUM ####[facility] ([address] [place] [address] VIRPH NUR7.0 Normal5.0, 6.0, 6.5, 7.0, 7.5, 8.0, 8.5, 5.5ProMedica Mercy Medical CenterComment on above:Performed By: #### NUM ####[facility] ([address] [place] [address] VIRPROTEIN NURNegativeNormalNegativeBlanchard Valley Health SystemComment on above:Performed By: #### NUM ####[facility] ([address] [place] [address] VIRSPECIFIC GRAVITY NUR1.613Okmgup5.010, 1.015, 1.020, 1.025[facility] SystemComment on above:Performed By: #### NUM ####[facility] ([address] [place] [address] VIRUROBILINOGEN NUR0.2 E.U./dLNormalProBaptist Saint Anthony'S HospitalComment on above:Performed By: #### NUM ####[facility] ([address] [address] VIRTHYROID PROFILE INCLUDES TSH FT4on 50-89-5680Qaph T4 [Mass/Vol]1.21 ng/dLNormal0.61-1.60 [facility] SystemComment on above:Performed By: #### THYR ####[address] VIRTSH2.66 uIU/mLNormal0.49-4.67[facility] SystemComment on above:Performed By: #### THYR ####[address] VIRTROP I, HIGH SENSITIVITY 1 HOURon 59-11-8793WWQEXUGN I, HIGH SENSITIVITY7 ng/LNormal<16ProBaptist Saint Anthony'S HospitalComment on above: Performed By: #### TNIHS1 ####[address] [address] VIRTROPONIN I, HIGH SENSITIVITY 0 HOURon 06-08-2025 TROPONIN I, HIGH SENSITIVITY7 ng/LNormal<16ProBaptist Saint Anthony'S HospitalComment on above:Performed By: #### TNIHS0 ####[address] [address] VIRXR CHEST 1 VWon 51-98-6879AI CHEST 1 VW NormalProBaptist Saint Anthony'S HospitalXR Pelvis 1 or 2 Viewson 78-88-0421OKCW HealthcareImaging Result: AP Pelvis Osteopenia noted Mild distraction of less trochanteric avulsion fracture. Soft tissue vascular calcifications are prominent No effusion. Remote sclerotic changes from pubic ramus fracture bilaterally with mild degenerative changes of hip Impression: stable appearing right hip lesser trochanteric avulsion fracture.[facility] HealthcareRadiology Study observation (narrative) [facility] HealthcareXR HIP RT 2-3 VIEWS W OR WO PELVISon 05-98-3302SE HIP RT 2-3 VIEWS W OR WO PELVISNormalProMedica Mercy Medical CenterCT HEAD WO IV CONTRASTon 97-12-2392RS HEAD WO IV CONTRASTCT HEAD WO IV CONTRAST HISTORY: Normal pressure [...] this report. Electronically signed: Sukhjinder Ferrara. 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, also needs shunt series x raysame dayFollow-Upon [id number] Cuca Dee 1945 F Date Provider Department Center 05/22/2025 148-DIANE, [facility] Second Fl Family History Problem Relation Age of Onset Diabetes Mother Hypertension Father Coronary artery disease Father Family Status - Relation Status Age at Mother Father Level of Service:45079 CO OFFICE/OUTPATIENT ESTABLISHED MOD MDM 30 [facility] CenterBEDSIDE GLUCOSEon 55-09-3212Hqpufim [Mass/Vol]320 mg/dXGull71-82UocKnjhnlBlanchard Valley Health SystemComment on above:Performed By: #### BEDG ####[facility] ([facility])[address] [place] [address] [place], [place] VIRBedside Glucose *Place/Obtain serum glucose if >500 per glucometer.on 22-13-2859Nlyhysj [Mass/Vol]320 mg/iXIpai38 - 99 mg/dLCommunity Regional Medical CenterInterpretation and review of laboratory resultsAbnoPrime Healthcare ServicesCBC WITH AUTO DIFFERENTIALon 05-15-2025 BASOPHILS ABSOLUTE COUNT (10*3/UL) BY AUTOMATED COUNT0.0 10*3/uLNormal0.0-0.2 [facility] SystemComment on above:Performed By: #### CBCA ####[facility] ([facility])[address] [place] [address] AVE.[place], [id number] VIRBASOPHILS RELATIVE PERCENT BY AUTOMATED COUNT0.5 %NormalBlanchard Valley Health SystemComment on above:Performed By: #### CBCA ####[facility] ([facility])[address] [place] [address] AVE.[place], [id number] VIRCELLAVISION DIFFERENTIAL TYPE AUTOMATED DIFFERENTIALNoOhio State Harding HospitalComment on above:Performed By: #### CBCA ####[facility] ([facility])[address] [place] [address].[place], [id number] VIREosinophils (Bld) [#/Vol]0.3 10*3/uLNormal0.0-0.4 [facility] Effingham HospitalComment on above:Performed By: #### CBCA ####[facility] ([address], [id number] VIR EOSINOPHILS RELATIVE PERCENT BY AUTOMATED COUNT3.4 %NormalBlanchard Valley Health SystemComment on above:Performed By: #### CBCA ####[facility] ([address], [id number] VIRErythrocyte distribution width (RBC) [Ratio]15.5 %High11.5-15ProBaptist Saint Anthony'S HospitalComment on above: Performed By: #### CBCA ####[facility] ([address], [id number] VIRHematocrit (Bld) [Volume fraction]30.0 %Rfk90-45 [facility] SystemComment on above:Performed By: #### CBCA ####[facility] ([address], [id number] VIRHemoglobin (Bld) [Mass/Vol]10.1 g/dLLow11.7-15.5PMercy HealthComment on above: Performed By: #### CBCA ####[facility] ([address], [id number] VIRLYMPHOCYTES ABSOLUTE COUNT (10*3/UL) BY AUTOMATED COUNT1.7 10*3/uLNormal1.0-3.5PMercy HealthComment on above: Performed By: #### CBCA ####[facility] ([address], [id number] VIRLYMPHOCYTES RELATIVE PERCENT BY AUTOMATED COUNT19.9 %NormalBlanchard Valley Health SystemComment on above:Performed By: #### CBCA ####[facility] ([address], [id number] VIRMCH (RBC) [Entitic mass]27.8 tpXqwawp62-23IttIyonwiBaptist Saint Anthony'S HospitalComment on above:Performed By: #### CBCA ####[facility] ([address], [id number] VIRMCHC (RBC) [Mass/Vol]33.5 g/dLNormal 32-36ProBaptist Saint Anthony'S HospitalComment on above:Performed By: #### CBCA ####[facility] ([address], [id number] VIRMCV (RBC) [Entitic vol]83 lUPxetvv24-994WmgGaopdm Fremont HospitalComment on above:Performed By: #### CBCA ####[facility] ([address], [id number] VIRMONOCYTES ABSOLUTE COUNT (10*3/UL) BY AUTOMATED COUNT0.8 10*3/uLNormal0.0-0.9[facility] SystemComment on above:Performed By: #### CBCA ####[facility] ([address], [id number] VIRMONOCYTES RELATIVE PERCENT BY AUTOMATED COUNT 9.9 %NormalBlanchard Valley Health SystemComment on above:Performed By: #### CBCA ####[facility] ([address], [id number] VIRNEUTROPHILS ABSOLUTE COUNT BY AUTOMATED COUNT5.7 10*3/uLNormal1.5-6.6 ProMKaiser Permanente Medical CenterComment on above:Performed By: #### CBCA ####[facility] ([address], [id number] VIR NEUTROPHILS RELATIVE PERCENT BY AUTOMATED COUNT66.3 %NormalBlanchard Valley Health SystemComment on above:Performed By: #### CBCA ####[facility] ([address], [id number] VIRPlatelet mean volume (Bld) [Entitic vol]8.7 fLNormal7-12PMercy HealthComment on above: Performed By: #### CBCA ####[facility] ([address], [id number] VIRPlatelets (Bld) [#/Vol]196 10*3/dDAoaszd070-940 [facility] SystemComment on above:Performed By: #### CBCA ####[facility] ([facility])[address] [place] [address] AVE.[place], [id number] VIRRBC COUNT 3.62 X10E12/LLow3.8-5.2PMercy HealthComment on above:Performed By: #### CBCA ####[facility] ([facility])[address] [place] [address] AVE.[place], [id number] VIRWBC (Bld) [#/Vol]8.6 10*3/uLNormal4-11[facility] Health SystemComment on above:Performed By: #### CBCA ####[facility] ([facility])[address] [place] [address] [address]VE.[place], [id number] VIRCBC auto differentialon 71-08-7606Tbcakegwh (Bld) [#/Vol]0 10*3/uL0.0 - 0.2 10*3/uLProMedica Health SystemBasophils/100 WBC (Bld)0.5 %[facility] HospitaledicOlivia Hospital and Clinics SystemDifferential cell count method Nom (Bld)AUTOMATED DIFFERENTIALCommunity Regional Medical CenterEosinophils (Bld) [#/Vol]0.3 10*3/uL0.0 - 0.4 10*3/uLProMedidc Health SystemEosinophils/100 WBC (Bld)3.4 %ProMedica Health SystemErythrocyte distribution width (RBC) [Ratio] 15.5 %High11.5 - 15 %ProMedica Health SystemHematocrit (Bld) [Volume fraction]30 %Low35 - 47 %ProMedica Health SystemHemoglobin (Bld) [Mass/Vol]10.1 g/dLLow11.7 - 15.5 g/dLCommunity Regional Medical CenterInterpretation and review of laboratory resultsAbnormalCommunity Regional Medical CenterLymphocytes (Bld) [#/Vol]1.7 10*3/uL1.0 - 3.5 10*3/uLCommunity Regional Medical CenterLymphocytes/100 WBC (Bld)19.9 %[facility] Medical CenterMCH (RBC) [Entitic mass]27.8 pg27 - 34 [facility] MCHC (RBC) [Mass/Vol]33.5 g/dL32 - 36 g/dLCommunity Regional Medical CenterMCV (RBC) [Entitic vol]83 fL80 - 100 [facility] CenterMonocytes (Bld) [#/Vol]0.8 10*3/uL0.0 - 0.9 10*3/uLCommunity Regional Medical CenterMonocytes/100 WBC (Bld)9.9 % [facility] CenterNeutrophils (Bld) [#/Vol]5.7 10*3/uL1.5 - 6.6 10*3/uL [facility] CenterNeutrophils/100 WBC (Bld)66.3 %[facility] Platelet mean volume (Bld) [Entitic vol]8.7 fL7 - 12 [facility] Platelets (Bld) [#/Vol]196 10*3/uLCommunity Regional Medical CenterRBC (Bld) [#/Vol]3.62 10*6/uLLowCommunity Regional Medical CenterWBC LM Ql (Sput)8.6Jeanes HospitalCOMPREHENSIVE METABOLIC PANELon [id number] [Mass/Vol]2.9 g/dLLow3.2-5.3PMercy HealthComment on above:Performed By: #### CMP ####[facility] ([facility])[address] [place] [id number] VIRALP [Catalytic activity/Vol]125 U/QTdlyej44-277 [facility] SystemComment on above:Performed By: #### CMP ####[facility] ([facility] [place] [address] VIRALT [Catalytic activity/Vol]14 U/LNormal<=31PMercy HealthComment on above:Performed By: #### CMP ####[facility] ([place] [address] [place] [address] VIRAnion gap [Moles/Vol]8 mmol/LNormal5-15 [facility] HospitalComment on above:Performed By: #### CMP ####[facility] ([place] [address] [address] VIRAST [Catalytic activity/Vol]17 U/LNormal<=41[facility] Medical CenterComment on above:Performed By: #### CMP ####[facility] ([place] [address] [address] VIRBilirubin [Mass/Vol]0.6 mg/dLNormal0.3-1.2 [facility] SystemComment on above:Performed By: #### CMP ####[facility] ([place] [address] [place] [address] VIRCalcium [Mass/Vol]9.4 mg/dLNormal8.5-10.5PMercy HealthComment on above: Performed By: #### CMP ####[facility] ([place] [address] [place] [address] VIRChloride [Moles/Vol]102 mmol/DUwviua81-788 [place] Valley Health SystemComment on above:Performed By: #### CMP ####[facility] ([place] [address] [place] [address] VIRCO2 [Moles/Vol]26 mmol/UAqwbgc88-43XpbLhobioMercy HealthComment on above: Performed By: #### CMP ####[facility] ([place] [address] [place] [address] VIRCreatinine [Mass/Vol]1.20 mg/dLHigh0.40-1.00 [facility] SystemComment on above:Result Comment: METHOD TRACEABLE TO IDMS STANDARDPerformed By: #### CMP ####[facility] ([address] [address] VIRGFR/1.73 sq M.predicted among non- blacks MDRD (S/P/Bld) [Vol rate/Area]46 mL/min/{1.73_m2}Low>=60ProBaptist Saint Anthony'S HospitalComment on above:Result Comment: eGFR not reported due to non-numeric value for Creatinine.Performed By: #### CMP ####[facility] ([address] [address] VIRGlucose [Mass/Vol]152 mg/bGCmhd39-09JoxGkruqeBaptist Saint Anthony'S HospitalComment on above:Performed By: #### CMP ####[facility] ([address] [address] VIRPotassium [Moles/Vol]4.6 mmol/LNormal3.5-5.0[facility] Comment on above:Performed By: #### CMP ####[facility] ([address] [address] VIRProtein [Mass/Vol]7.0 g/dLNormal 6.0-8.0[facility] SystemComment on above:Performed By: #### CMP ####[facility] ([address] [address] VIRSodium [Moles/Vol]136 mmol/XVmijhq832-044JybEqsvmjBlanchard [facility] Comment on above:Performed By: #### CMP ####[facility] ([address] [address] VIRUrea nitrogen [Mass/Vol]22 mg/dL Normal5-27ProBaptist Saint Anthony'S HospitalComment on above:Performed By: #### CMP ####[facility] ([facility])[address] [facility] [facility].[place], [place] [address] VIRComprehensive metabolic panelon 02-50-4404Lgnyngq [Mass/Vol]2.9 g/dLLow 3.2 - 5.3 g/dLProWalker County Hospital Health SystemALP [Catalytic activity/Vol]125 U/L39 - 130 U/LProMedica Health SystemALT No additional P-5'-P [Catalytic activity/Vol]14 U/LNINF - 31 U/LProMedica Health SystemAnion gap [Moles/Vol]8 mmol/L5 - 15 mmol/LProMedica Health SystemAST [Catalytic activity/Vol]17 U/LNINF - 41 U/L [facility] SystemBilirubin [Mass/Vol]0.6 mg/dL0.3 - 1.2 mg/dLProBarney Children'S Medical Center SystemCalcium [Mass/Vol]9.4 mg/dL8.5 - 10.5 mg/dLProBarney Children'S Medical Center System Chloride [Moles/Vol]102 mmol/L98 - 109 mmol/LProMedica Health SystemCO2 [Moles/Vol]26 mmol/L22 - 32 mmol/LProMedica Health SystemCreatinine [Mass/Vol] 1.2 mg/dLHigh0.40 - 1.00 mg/dLBluffton Hospital SystemComment on above:METHOD TRACEABLE TO IDMS STANDARDEGFR Non-Race Lyoqtrymy52Iry- PINGood Samaritan Hospital SystemComment on above:eGFR not reported due to non-numeric value for Creatinine.Glucose [Mass/Vol]152 mg/xMJbma10 - 99 mg/dLBluffton Hospital System Interpretation and review of laboratory resultsAbnormalProBarney Children'S Medical Center System Potassium [Moles/Vol]4.6 mmol/L3.5 - 5.0 mmol/LProMedica Health SystemProtein [Mass/Vol]7 g/dL6.0 - 8.0 g/dLProWalker County Hospital Health SystemSodium [Moles/Vol]136 mmol/L134 - 146 mmol/LProMedica Health SystemUrea nitrogen [Mass/Vol]22 mg/dL5 - 27 mg/dLBluffton Hospital SystemProPomerene Hospitalca [facility] SystemMAGNESIUMon 05-15-2025 Magnesium [Mass/Vol]2.0 mg/dLNormal1.8-2.6[facility] SystemComment on above:Performed By: #### MG ####[facility] ([address] [address] VIRMagnesiumon 73-61-2858Gevmtlrpabjfcj and review of laboratory resultsNormalCommunity Regional Medical CenterMagnesium [Mass/Vol]2 mg/dL1.8 - 2.6 mg/dLAspirus Riverview Hospital and Clinics SystemSST TOPon 75-50-7215Zmdzq TubeAuto ResultedAspirus [facility]ics System BEDSIDE GLUCOSEon 35-86-8137Yzmjkfg [Mass/Vol]286 mg/zHJllo09-38OalJsssvbBlanchard Valley Health SystemComment on above:Performed By: #### BEDG ####[facility] ([address] VIRGlucose [Mass/Vol] 308 mg/qSCaft28-85CajAjmjzdBaptist Saint Anthony'S HospitalComment on above:Performed By: #### BEDG ####[facility] ([address] [address] VIRGlucose [Mass/Vol]223 mg/gUZnay88-42ZbfNeibktBlanchard Valley Health SystemComment on above:Performed By: #### BEDG ####[facility] ([address] VIRBedside Glucose *Place/Obtain serum glucose if >500 per glucometer.on 90-28-6498Jpoabhn [Mass/Vol]286 mg/mIFsvc22 - 99 mg/dLBluffton Hospital SystemInterpretation and review of laboratory results AbnormalProBeloit Memorial Hospital SystemGlucose [Mass/Vol]308 mg/lMWpks05 - 99 mg/dLBluffton Hospital SystemInterpretation and review of laboratory resultsAbnormalProBeloit Memorial Hospital SystemGlucose [Mass/Vol]223 mg/bSNulm74 - 99 mg/dLBluffton Hospital SystemInterpretation and review of laboratory resultsAbnormalProMedica Health SystemProMedica Health SystemCB WITH AUTO DIFFERENTIALon 33-07-4420VVWJLYAFH ABSOLUTE COUNT (10*3/UL) BY AUTOMATED COUNT0.1 10*3/uLNormal0.0-0.2PMercy HealthComment on above:Performed By: #### CBCA ####[facility] ([address], [id number] VIRBASOPHILS RELATIVE PERCENT BY AUTOMATED COUNT 0.7 %Berger HospitalComment on above:Performed By: #### CBCA ####[facility] ([address], [id number] VIRCELLAVISION DIFFERENTIAL TYPEAUTOMATED DIFFERENTIALNoOhio State Harding HospitalComment on above:Performed By: #### CBCA ####[facility] ([address]IS[facility], [id number] VIREosinophils (Bld) [#/Vol] 0.5 10*3/uLHigh0.0-0.4[facility] SystemComment on above:Performed By: #### CBCA ####[facility] ([address], [id number] VIREOSINOPHILS RELATIVE PERCENT BY AUTOMATED COUNT6.6 % NormalBlanchard Valley Health SystemComment on above:Performed By: #### CBCA ####[facility] ([address], [id number] VIRErythrocyte distribution width (RBC) [Ratio]15.5 %High11.5-15[facility] SystemComment on above:Performed By: #### CBCA ####[facility] ([address], [id number] VIRHematocrit (Bld) [Volume fraction]30.6 %Xmp52-24YekMxstmwBaptist Saint Anthony'S HospitalComment on above: Performed By: #### CBCA ####[facility] ([facility])[address] [place], [place] [address]E.[place], [place] VIRHemoglobin (Bld) [Mass/Vol]10.3 g/dLLow11.7-15.5 [facility] SystemComment on above:Performed By: #### CBCA ####[facility] ([facility])[address] [place] [address] AVE.[place], [id number] VIR LYMPHOCYTES ABSOLUTE COUNT (10*3/UL) BY AUTOMATED COUNT1.8 10*3/uLNormal1.0-3.5 [facility] SystemComment on above:Performed By: #### CBCA ####[facility] ([address], [id number] VIR LYMPHOCYTES RELATIVE PERCENT BY AUTOMATED COUNT23.9 %NormalProBaptist Saint Anthony'S HospitalComment on above:Performed By: #### CBCA ####[facility] ([address], [id number] VIRMCH (RBC) [Entitic mass] 28.1 wkFdctpo26-61MibPrqfzzBlanchard Valley Health SystemComment on above:Performed By: #### CBCA ####[facility] ([address] [place] [address] VIRMCHC (RBC) [Mass/Vol]33.5 g/eTFtzvks54-18WmsPhtzyjBlanchard [facility] Comment on above:Performed By: #### CBCA ####[facility] ([address], [id number] VIRMCV (RBC) [Entitic vol]84 fLNormal 80-100ProBaptist Saint Anthony'S HospitalComment on above:Performed By: #### CBCA ####[facility] ([facility])[address] [place], [place] [address]E.[place], [id number] VIRMONOCYTES ABSOLUTE COUNT (10*3/UL) BY AUTOMATED COUNT1.0 10*3/uLHigh0.0-0.9 [facility] SystemComment on above:Performed By: #### CBCA ####[facility] ([facility])[address] [place], [place] [address], [place] VIRMONOCYTES RELATIVE PERCENT BY AUTOMATED COUNT12.9 %NormalBlanchard Valley Health SystemComment on above:Performed By: #### CBCA ####[facility] ([address], [id number] VIRNEUTROPHILS ABSOLUTE COUNT BY AUTOMATED COUNT4.2 10*3/uLNormal1.5-6.6[facility] SystemComment on above:Performed By: #### CBCA ####[facility] ([address], [id number] VIRNEUTROPHILS RELATIVE PERCENT BY AUTOMATED COUNT55.9 %NormalBlanchard Valley Health SystemComment on above:Performed By: #### CBCA ####[facility] ([address] [place] [address] VIRPlatelet mean volume (Bld) [Entitic vol]8.7 fLNormal7-12PMercy HealthComment on above:Performed By: #### CBCA ####[facility] ([address], [id number] VIRPlatelets (Bld) [#/Vol]166 10*3/uYVndhcj967-864TgxWouxrf Fremont HospitalComment on above: Performed By: #### CBCA ####[facility] ([address], [place] VIRRBC COUNT3.65 X10E12/LLow3.8-5.2PMercy HealthComment on above:Performed By: #### CBCA ####[facility] ([address], [place] VIRWBC (Bld) [#/Vol]7.6 10*3/uLNormal4-11[facility] SystemComment on above:Performed By: #### CBCA ####[facility] ([facility] [place] [address].[place] [address] VIRCBC auto differentialon 32-67-6190Ujfnykggt (Bld) [#/Vol]0.1 10*3/uL0.0 - 0.2 10*3/uLCommunity Regional Medical CenterBasophils/100 WBC (Bld)0.7 %[facility] Medical CenterDifferential cell count method Nom (Bld)AUTOMATED DIFFERENTIAL [facility] Medical CenterEosinophils (Bld) [#/Vol]0.5 10*3/uLHigh0.0 - 0.4 10*3/uL [facility] CenterEosinophils/100 WBC (Bld)6.6 %[facility] Erythrocyte distribution width (RBC) [Ratio]15.5 %High11.5 - 15 %[facility] Medical CenterHematocrit (Bld) [Volume fraction]30.6 %Low35 - 47 %[facility] Medical CenterHemoglobin (Bld) [Mass/Vol]10.3 g/dLLow11.7 - 15.5 g/dLCommunity Regional Medical CenterInterpretation and review of laboratory resultsAbnormalCommunity Regional Medical CenterLymphocytes (Bld) [#/Vol]1.8 10*3/uL1.0 - 3.5 10*3/uLCommunity Regional Medical CenterLymphocytes/100 WBC (Bld)23.9 %[facility] Medical CenterMCH (RBC) [Entitic mass]28.1 pg27 - 34 [facility] HospitalMCHC (RBC) [Mass/Vol]33.5 g/dL32 - 36 g/dLCommunity Regional Medical CenterMCV (RBC) [Entitic vol]84 fL80 - 100 fL [facility] CenterMonocytes (Bld) [#/Vol]1 10*3/uLHigh0.0 - 0.9 10*3/uL [facility] CenterMonocytes/100 WBC (Bld)12.9 %[facility] Neutrophils (Bld) [#/Vol]4.2 10*3/uL1.5 - 6.6 10*3/[facility] Neutrophils/100 WBC (Bld)55.9 %[facility] SystemPlatelet mean volume (Bld) [Entitic vol]8.7 fL7 - 12 [facility] SystemPlatelets (Bld) [#/Vol]166 10*3/uLBluffton Hospital SystemRBC (Bld) [#/Vol]3.65 10*6/uLLowCommunity Regional Medical CenterWBC LM Ql (Sput)7.6[facility] COMPREHENSIVE METABOLIC PANELon 28-15-0753Kcysrop [Mass/Vol]2.9 g/dLLow3.2-5.3 [facility] SystemComment on above:Performed By: #### CMP ####[facility] ([address] [place] [address] VIRALP [Catalytic activity/Vol]128 U/RIxlnns07-396DhjVngvtzBlanchard Valley Health SystemComment on above:Performed By: #### CMP ####[facility] ([address] [place] [address] VIRALT [Catalytic activity/Vol]14 U/LNormal<=31 [facility] SystemComment on above:Performed By: #### CMP ####[facility] ([address] [place] [address] VIRAnion gap [Moles/Vol]9 mmol/LNormal5-15[facility] SystemComment on above: Performed By: #### CMP ####[facility] ([address] [place] [address] VIRAST [Catalytic activity/Vol]23 U/LNormal<=41 [facility] SystemComment on above:Performed By: #### CMP ####[facility] ([address] [place] [address] VIRBilirubin [Mass/Vol]0.6 mg/dLNormal0.3-1.2PMercy HealthComment on above: Performed By: #### CMP ####[facility] ([address] [place] [address] VIRCalcium [Mass/Vol]9.0 mg/dLNormal8.5-10.5PMercy HealthComment on above:Performed By: #### CMP ####[facility] ([address] [address] VIRChloride [Moles/Vol]108 mmol/NZutzfz23-840WqeOhcbbqBaptist Saint Anthony'S HospitalComment on above: Performed By: #### CMP ####[address] [address] VIRCO2 [Moles/Vol]22 mmol/ICbdqzu56-09NpuXqnlvrMercy HealthComment on above:Performed By: #### CMP ####[facility] ([address] [address] VIRCreatinine [Mass/Vol]1.30 mg/dLHigh0.40-1.00ProBaptist Saint Anthony'S HospitalComment on above: Result Comment: METHOD TRACEABLE TO IDMS STANDARDPerformed By: #### CMP ####[facility] ([address] [address] VIRGFR/1.73 sq M.predicted among non-blacks MDRD (S/P/Bld) [Vol rate/Area] 42 mL/min/{1.73_m2}Low>=60ProBaptist Saint Anthony'S HospitalComment on above:Result Comment: eGFR not reported due to non-numeric value for Creatinine.Performed By: #### CMP ####[facility] ([address] [address] VIRGlucose [Mass/Vol]148 mg/zEPvst26-44AlzGoeasqBaptist Saint Anthony'S HospitalComment on above:Performed By: #### CMP ####[facility] ([facility])[address] [address] VIRPotassium [Moles/Vol]4.4 mmol/LNormal3.5-5.0[facility] SystemComment on above:Performed By: #### CMP ####[facility] ([facility])[address] [place] [address] VIRProtein [Mass/Vol]6.6 g/dLNormal6.0-8.0[facility] Comment on above:Performed By: #### CMP ####[facility] ([facility])[address] [place] [address] VIRSodium [Moles/Vol]139 mmol/LNormal 134-146ProBaptist Saint Anthony'S HospitalComment on above:Performed By: #### CMP ####[facility] ([address], [place] [address] VIRUrea nitrogen [Mass/Vol]27 mg/dLSoutheast Missouri Hospitalal5-27ProBaptist Saint Anthony'S Hospital Comment on above:Performed By: #### CMP ####[facility] ([facility])[address] [place] [address].[place] [address] VIRCT BRAIN WO CONTon 26-45-7499MZ BRAIN WO CONTNormalProBaptist Saint Anthony'S HospitalCT Head WO contraston 05-14-2025 STUDY: CT HEAD WITHOUT CONTRAST CLINICAL HISTORY: [...] by Blu Miller MD on 05/14/2025 12:24 PMSECTRABlu Turner MD - 05/14/2025 STUDY: CT HEAD WITHOUT [...] Miller MD on 05/14/2025 12:24 PM [facility] HospitalHome Online Income Systems SystemRadiology Study observation (narrative)ProMedicJavelin Networks SystemCT Head WO contrastOrdered By: Blu Miller on 53-89-1169YhsYaglev Health System Work Phone: Comprehensive metabolic panelon 57-50-4200Gwudcdq [Mass/Vol]2.9 g/dLLow3.2 - 5.3 g/dLProMedica Health SystemALP [Catalytic activity/Vol]128 U/L39 - 130 U/LProMedica Health SystemALT No additional P-5'-P [Catalytic activity/Vol]14 U/LNINF - 31 U/LProMedica Health SystemAnion gap [Moles/Vol]9 mmol/L5 - 15 mmol/LProMedica Health SystemAST [Catalytic activity/Vol]23 U/LNINF - 41 U/LProMedica Health SystemBilirubin [Mass/Vol]0.6 mg/dL0.3 - 1.2 mg/dLProMedica Health SystemCalcium [Mass/Vol]9 mg/dL8.5 - 10.5 mg/dLMercy Health Defiance Hospital Health SystemChloride [Moles/Vol]108 mmol/L98 - 109 mmol/L Pro[facility] Health SystemCO2 [Moles/Vol]22 mmol/L22 - 32 mmol/LProMedica Health SystemCreatinine [Mass/Vol]1.3 mg/dLHigh0.40 - 1.00 mg/dLBluffton Hospital System Comment on above:METHOD TRACEABLE TO IDDE STANDARDEGFR Non-Race Hckmlktqj93Nng- PINFProMedl.[facility]. [facility] Health SystemComment on above:eGFR not reported due to non-numeric value for Creatinine.Glucose [Mass/Vol]148 mg/bFWowe07 - 99 mg/dLBluffton Hospital SystemInterpretation and review of laboratory resultsAbnormalMercy Health [facility]iance Hospital Health SystemPotassium [Moles/Vol]4.4 mmol/L3.5 - 5.0 mmol/LProMedica Health SystemProtein [Mass/Vol]6.6 g/dL6.0 - 8.0 g/dLMercy Health Defiance Hospital Health SystemSodium [Moles/Vol]139 mmol/L134 - 146 mmol/[facility] HospitaloMedl.[facility]. [facility] Health SystemUrea nitrogen [Mass/Vol]27 mg/dL5 - 27 mg/dLBluffton Hospital SystemBl[facility]ton Hospital System MAGNESIUMon 33-76-0559Enmaaekrk [Mass/Vol]2.1 mg/dLNormal1.8-2.6[facility] SystemComment on above:Performed By: #### MG ####[address] [address] VIRMagnesium [Mass/Vol]1.6 mg/dLLow1.8-2.6[facility] SystemComment on above: Performed By: #### MG ####[address] [address] VIRMagnesiumon 76-74-2561Dmogwuiwjrdwng and review of laboratory resultsNormJefferson Health Northeast SystemMagnesium [Mass/Vol]2.1 mg/dL1.8 - 2.6 mg/dLProBarney Children'S Medical Center SystemBluffton Hospital SystemInterpretation and review of laboratory resultsAbnormJefferson Health Northeast SystemMagnesium [Mass/Vol] 1.6 mg/dLLow1.8 - 2.6 mg/dLAspirus Riverview [facility] and Clinics SystemAPTTon 51-18-5035sMFR Coag (PPP) [Time]30 sPrOhioHealth Shelby HospitalInterpretation and review of laboratory resultsNormalWell[facility] aPTT Coag (Bld) [Time]30 fTxbaaw94-86CnqEdypjeBaptist Saint Anthony'S HospitalComment on above: Performed By: #### PTT ####[facility] ([facility])[address] [place] [address] VIRB-TYPE NATRIURETIC PEPTIDEon 34-00-9019Oyyunwjgetz peptide B (Bld) [Mass/Vol]602 pg/mLHigh<=100[facility] SystemComment on above:Performed By: #### BNP ####[facility] ([address] [address] VIRB-type natriuretic peptideOrdered By: Haven Tao on 64-47-7251Xympmdnkvmozbm and review of laboratory results AbnormalCommunity Regional Medical CenterNatriuretic peptide B (Bld) [Mass/Vol]602 pg/mL HighNINF - 100 pg/mLWellSpan Good Samaritan HospitalBEDSIDE GLUCOSEon 02-23-5130Zquesqp [Mass/Vol]256 mg/eLPrvn41-53EhiMontxvBlanchard Valley Health SystemComment on above:Performed By: #### BEDG ####[facility] ([facility])[address] [place], [place] [address] VIRGlucose [Mass/Vol]384 mg/dL Kium64-86OszIfdfbyBlanchard Valley Health SystemComment on above:Performed By: #### BEDG ####[facility] ([address] VIRBLOOD CULTUREon 07-03-6068Mjqvhyyf identified Cx Nom (Bld)CULTURE RESULTS NO GROWTH 5 DAYSNormalBlanchard Valley Health SystemComment on above:Order Comment: *SIRS Criteria: (must display 2 without other explanation)-Temperature < 36 or >38-Pulse >90-Resp rate >20-WBC less than 4K or greater than 12KRepeat blood cultures not needed:-To document that a blood culture is a contaminant when 1 of 2 bottles is positive for a common contaminant (already listed in [facility] with the culture result)-To document clearance of gram negative bacteremia in patients with suspected urinary source who are improvingPerformed By: #### BC ####[facility] ([facility])[address] [facility] [address], [place] [address] VIRBacteria identified Cx Nom (Bld)CULTURE RESULTS NO GROWTH 5 DAYSNormalProBaptist Saint Anthony'S HospitalComment on above:Order Comment: *SIRS Criteria: (must display 2 without other explanation)-Temperature < 36 or >38-Pulse >90-Resp rate >20-WBC less than 4K or greater than 12KRepeat blood cultures not needed:-To document that a blood culture is a contaminant when 1 of 2 bottles is positive for a common contaminant (already listed in [facility] with the culture result)-To document clearance of gram negative bacteremia in patients with suspected urinary source who are improvingOnly aerobic bottle receivedPerformed By: #### BC ####[facility] ([facility])[address] [facility] [address], [place] [address] VIRBLOOD GAS, ARTERIALon 05-13-2025 BASE,DEFICIT-3.0 mmol/LLow0.0-2.0[facility] SystemComment on above: Performed By: #### ABG ####[facility] ([facility])[address] [address] VIRHCO3 (Bld) [Moles/Vol]22.8 mmol/HDrtotd37.0-26.0 [facility] SystemComment on above:Performed By: #### ABG ####[facility] ([facility])[address] [address] VIROxygen saturation in Blood92.0 %Normal>90.0[facility] SystemComment on above: Performed By: #### ABG ####[facility] ([facility])[address] [place] [address] [place] [address] VIRPCO2 AWEUTSSL69.4 drElGnttuy00.0-45.0ProBaptist Saint Anthony'S HospitalComment on above:Performed By: #### ABG ####[facility] ([facility])[address] [place] [address] [place] [address] VIRPH ARTERIAL7.349 Low7.350-7.450ProBaptist Saint Anthony'S HospitalComment on above:Performed By: #### ABG ####[facility] ([facility])[address] [place], [place] [address]E.[place], [place] [address] VIRPO2 BUSTJQXL30 pvXwRgl13-956PszRixggvBaptist Saint Anthony'S HospitalComment on above: Performed By: #### ABG ####[facility] ([address] [place] [address] VIRPOC TATO'S TESTN/ANormalBlanchard Valley Health SystemComment on above:Performed By: #### ABG ####[facility] ([address] [place] [address] VIRSAMPLE SITEL RadNormal [facility] SystemComment on above:Performed By: #### ABG ####[facility] ([address] [place] [address] VIRSAMPLE TYPEARTERIALNormalBlanchard Valley Health SystemComment on above:Performed By: #### ABG ####[facility] ([facility])[address] [place] [address].[place] [address] VIRSOURCE OF OXYGENNCNormalBlanchard Valley Health SystemComment on above: Performed By: #### ABG ####[facility] ([address] [place] [address] VIRBedside Glucose *Place/Obtain serum glucose if >500 per glucometer.on 43-74-1530Sldqmlo [Mass/Vol]256 mg/gFGzsz92 - 99 mg/dL [facility] CenterInterpretation and review of laboratory resultsAbnormal [facility] HospitalGlucose [Mass/Vol]384 mg/lHOlyq20 - 99 mg/dLCommunity Regional Medical CenterInterpretation and review of laboratory results AbnormalWellSpan Good Samaritan HospitalC-REACTIVE PROTEINon 05-13-2025 REACTIVE PROTEIN6.1 mg/dLHigh<=0.7Bl[facility] SystemComment on above:Performed By: #### CRP ####[facility] ([address] [address] VIRC-reactive proteinon [id number] [Mass/Vol]6.1 mg/dLHighNINF - 0.7 mg/dLCommunity Regional Medical CenterInterpretation and review of laboratory resultsAbnormalWellSpan Good Samaritan HospitalCBC WITH AUTO DIFFERENTIALon [id number] ABSOLUTE COUNT (10*3/UL) BY AUTOMATED COUNT0.1 10*3/uLNormal0.0-0.2PMercy HealthComment on above:Performed By: #### CBCA ####[facility] ([address] [id number] VIRBASOPHILS RELATIVE PERCENT BY AUTOMATED COUNT 0.6 %NormalBlanchard Valley Health SystemComment on above:Performed By: #### CBCA ####[facility] ([address] [id number] VIRCELLAVISION DIFFERENTIAL TYPEAUTOMATED DIFFERENTIALNoalBlanchard Valley Health SystemComment on above:Performed By: #### CBCA ####[facility] ([address] [id number] VIREosinophils (Bld) [#/Vol] 0.1 10*3/uLNormal0.0-0.4Bl[facility] SystemComment on above:Performed By: #### CBCA ####[facility] ([address], [id number] VIREOSINOPHILS RELATIVE PERCENT BY AUTOMATED COUNT1.6 % NormalBlanchard Valley Health SystemComment on above:Performed By: #### CBCA ####[facility] ([address] [address], [id number] VIRErythrocyte distribution width (RBC) [Ratio]15.8 %High11.5-15ProBaptist Saint Anthony'S HospitalComment on above:Performed By: #### CBCA ####[facility] ([address], [id number] VIRHematocrit (Bld) [Volume fraction]36.0 %Fffvmf65-84XpyVooftzBaptist Saint Anthony'S HospitalComment on above: Performed By: #### CBCA ####[facility] ([address], [place] VIRHemoglobin (Bld) [Mass/Vol]11.8 g/lPIzogze41.7-15.5 [facility] SystemComment on above:Performed By: #### CBCA ####[facility] ([address], [id number] VIR LYMPHOCYTES ABSOLUTE COUNT (10*3/UL) BY AUTOMATED COUNT1.7 10*3/uLNormal1.0-3.5 [facility] SystemComment on above:Performed By: #### CBCA ####[facility] ([address], [id number] VIR LYMPHOCYTES RELATIVE PERCENT BY AUTOMATED COUNT18.7 %NormalBlanchard Valley Health SystemComment on above:Performed By: #### CBCA ####[facility] ([address], [id number] VIRMCH (RBC) [Entitic mass] 27.5 ocEimasi10-10RjoUcqvdoBaptist Saint Anthony'S HospitalComment on above:Performed By: #### CBCA ####[facility] ([facility])[address] [place] [address] [place] [address] VIRMCHC (RBC) [Mass/Vol]32.7 g/wEHijuad43-16IepVxhnsbBlanchard Valley Health System Comment on above:Performed By: #### CBCA ####[facility] ([address], [place] VIRMCV (RBC) [Entitic vol]84 fLNormal 80-100ProBaptist Saint Anthony'S HospitalComment on above:Performed By: #### CBCA ####[facility] ([address], [id number] VIRMONOCYTES ABSOLUTE COUNT (10*3/UL) BY AUTOMATED COUNT0.9 10*3/uLNormal0.0-0.9 [facility] SystemComment on above:Performed By: #### CBCA ####[facility] ([address], [id number] VIRMONOCYTES RELATIVE PERCENT BY AUTOMATED COUNT10.3 %NormalProBaptist Saint Anthony'S HospitalComment on above:Performed By: #### CBCA ####[facility] ([address], [id number] VIRNEUTROPHILS ABSOLUTE COUNT BY AUTOMATED COUNT6.2 10*3/uLNormal1.5-6.6[facility] SystemComment on above:Performed By: #### CBCA ####[facility] ([address], [id number] VIRNEUTROPHILS RELATIVE PERCENT BY AUTOMATED COUNT68.8 %NormalBlanchard Valley Health SystemComment on above:Performed By: #### CBCA ####[facility] ([address] [place] [address] VIRPlatelet mean volume (Bld) [Entitic vol]8.4 fLNormal7-12ProMedica Effingham HospitalComment on above:Performed By: #### CBCA ####[facility] ([facility])[address] [place], [place] [address]E.[place], [id number] VIRPlatelets (Bld) [#/Vol]266 10*3/aCOnojcp579-657ZqgDayhgy [facility] HospitalComment on above: Performed By: #### CBCA ####[facility] ([facility])[address] [place] [address] [place], [id number] VIRRBC COUNT4.27 X10E12/LNormal3.8-5.2PMercy HealthComment on above:Performed By: #### CBCA ####[facility] ([facility])[address] [place] [address], [id number] VIRWBC (Bld) [#/Vol] 9.0 10*3/uLNormal4-11ProBaptist Saint Anthony'S HospitalComment on above:Performed By: #### CBCA ####[facility] ([facility])[address] [place] [address] [place], [place] VIRCBC auto differentialon 76-58-7923Xjhpxgupv (Bld) [#/Vol]0.1 10*3/uL0.0 - 0.2 10*3/uLProBarney Children'S Medical Center SystemBasophils/100 WBC (Bld)0.6 %[facility] Medical CenterDifferential cell count method Nom (Bld) AUTOMATED DIFFERENTIALCommunity Regional Medical CenterEosinophils (Bld) [#/Vol]0.1 10*3/uL0.0 - 0.4 10*3/uLCommunity Regional Medical CenterEosinophils/100 WBC (Bld)1.6 % [facility] Medical CenterErythrocyte distribution width (RBC) [Ratio]15.8 %High 11.5 - 15 %[facility] Medical CenterHematocrit (Bld) [Volume fraction]36 %35 - 47 %[facility] CenterHemoglobin (Bld) [Mass/Vol]11.8 g/dL11.7 - 15.5 g/dL [facility] CenterInterpretation and review of laboratory resultsAbnormal [facility] CenterLymphocytes (Bld) [#/Vol]1.7 10*3/uL1.0 - 3.5 10*3/uL [facility] CenterLymphocytes/100 WBC (Bld)18.7 %[facility] HospitalH (RBC) [Entitic mass]27.5 pg27 - 34 [facility] HospitalMCHC (RBC) [Mass/Vol]32.7 g/dL32 - 36 g/dLCommunity Regional Medical CenterMCV (RBC) [Entitic vol]84 fL80 - 100 [facility] CenterMonocytes (Bld) [#/Vol]0.9 10*3/uL0.0 - 0.9 10*3/uLCommunity Regional Medical CenterMonocytes/100 WBC (Bld)10.3 %[facility] Medical CenterNeutrophils (Bld) [#/Vol]6.2 10*3/uL1.5 - 6.6 10*3/uLCommunity Regional Medical CenterNeutrophils/100 WBC (Bld)68.8 %[facility] Medical CenterPlatelet mean volume (Bld) [Entitic vol]8.4 fL7 - 12 [facility] Medical CenterPlatelets (Bld) [#/Vol]266 10*3/[facility] MacombRBC (Bld) [#/Vol]4.27 10*6/[facility] MacombWBC LM Ql (Sput)9[facility] COMPREHENSIVE METABOLIC PANELon 11-51-9193Yneprmx [Mass/Vol]3.6 g/dLNormal 3.2-5.3PMercy HealthComment on above:Performed By: #### CMP ####[facility] ([facility])[address] [place] [address] [place] [address] VIRALP [Catalytic activity/Vol]160 U/RUqxy24-595BraCjixzzBlanchard Valley Health System Comment on above:Performed By: #### CMP ####[facility] ([facility])[address] [place] [address] [place] [address] VIRALT [Catalytic activity/Vol]18 U/L Normal<=31PMercy HealthComment on above:Performed By: #### CMP ####[facility] ([place] [address], [place] [address] VIRAnion gap [Moles/Vol]10 mmol/LNormal5-15[facility] Comment on above:Performed By: #### CMP ####[facility] ([address] [place] [address] VIRAST [Catalytic activity/Vol]31 U/L Normal<=41ProBaptist Saint Anthony'S HospitalComment on above:Performed By: #### CMP ####[facility] ([place] [address], [place] [address] VIRBilirubin [Mass/Vol]0.5 mg/dLNormal0.3-1.2PMercy Health Comment on above:Performed By: #### CMP ####[facility] ([address] [place] [address] VIRCalcium [Mass/Vol]9.5 mg/dLNormal 8.5-10.5PMercy HealthComment on above:Performed By: #### CMP ####[facility] ([address] [address] VIRChloride [Moles/Vol]101 mmol/JNoodhc49-880NvwYmkadjBlanchard Valley Health System Comment on above:Performed By: #### CMP ####[facility] ([address] [place] [address] VIRCO2 [Moles/Vol]23 mmol/MMelsej83-31 [facility] SystemComment on above:Performed By: #### CMP ####[facility] ([place] [address] [place] [address] VIR Creatinine [Mass/Vol]1.41 mg/dLHigh0.40-1.00[facility] SystemComment on above:Result Comment: METHOD TRACEABLE TO IDMS STANDARDPerformed By: #### CMP ####[address] [address] VIRGFR/1.73 sq M.predicted among non-blacks MDRD (S/P/Bld) [Vol rate/Area] 38 mL/min/{1.73_m2}Low>=60ProBaptist Saint Anthony'S HospitalComment on above:Result Comment: eGFR not reported due to non-numeric value for Creatinine.Reported eGFR is based ontheCKD-EPI 2020 equation that doesnot use a race coefficient. Performed By: #### CMP ####[address] [address] VIRGlucose [Mass/Vol]300 mg/vWTlqg39-10TurDzqhjkBaptist Saint Anthony'S HospitalComment on above:Performed By: #### CMP ####[address] [address] VIRPotassium [Moles/Vol]4.7 mmol/LNormal3.5-5.0[facility] SystemComment on above: Performed By: #### CMP ####[address] [address] VIRProtein [Mass/Vol]8.2 g/dLHigh6.0-8.0ProBaptist Saint Anthony'S HospitalComment on above:Performed By: #### CMP ####[address] [address] VIRSodium [Moles/Vol]134 mmol/SGojabg780-569SbxXyxmnr [facility]ont HospitalComment on above: Performed By: #### CMP ####[address] [address] VIRUrea nitrogen [Mass/Vol]31 mg/dLHigh5-27ProBaptist Saint Anthony'S HospitalComment on above:Performed By: #### CMP ####[facility] ([facility])[address] [facility] [facility] [place] [address] VIRCT HIP RT WO CONT on [id number] HIP RT WO CONTNormalProMedica Effingham HospitalCT Hip - right WO contraston 05-13-2025 Study: [...] soft tissue swelling or soft tissue gas. NoncontrastCT is not sensitive for early osteomyelitis and if osteomyelitis is suspected MRI for nuclear medicine labeled white cell study would be best for further evaluation All CT scans at this facility use dose modulation, iterative reconstruction, and/or weight based dosing when appropriate to reduce radiation dose to as low as reasonably achievable Finalized by Chester Parra MD on 05/13/2025 1:01 JOYCEPACSChester Parra MD - 05/13/2025 Study: CT right [...] soft tissue swelling or soft tissue gas. NoncontrastCT is not sensitive for early osteomyelitis and if osteomyelitis is suspected MRI for nuclear medicine labeled white cell study would be best for further evaluation All CT scans at this facility use dose modulation, iterative reconstruction, and/or weight based dosing when appropriate to reduce radiation dose to as low as reasonably achievable Finalized by Chester Parra MD on 05/13/2025 1:01 PM [facility] HospitalJavelin Networks [facility] HospitalRadiology Study observation (narrative)[facility] HospitalHome Online Income Systems SystemCT Hip - right WO contrastOrdered By: Chester Parra on 05-13-2025 [facility] HospitalRealty Compass Work Phone: Comprehensive metabolic panelon 56-14-0921Ozeaiqh [Mass/Vol]3.6 g/dL3.2 - 5.3 g/dLProWalker County Hospital Health SystemALP [Catalytic activity/Vol]160 U/LHigh39 - 130 U/LPrPikes Peak Regional Hospital Health SystemALT No additional P-5'-P [Catalytic activity/Vol]18 U/LNINF - 31 U/[facility] Centerica Health SystemAnion gap [Moles/Vol]10 mmol/L5 - 15 mmol/LProMedica Health SystemAST [Catalytic activity/Vol]31 U/LNINF - 41 U/LProMedica Health SystemBilirubin [Mass/Vol]0.5 mg/dL0.3 - 1.2 mg/dLProBarney Children'S Medical Center SystemCalcium [Mass/Vol]9.5 mg/dL8.5 - 10.5 mg/dLProWalker County Hospital Sova SystemChloride [Moles/Vol]101 mmol/L98 - 109 mmol/L [facility] Sova SystemCO2 [Moles/Vol]23 mmol/L22 - 32 mmol/LPrUC Medical Center SystemCreatinine [Mass/Vol]1.41 mg/dLHigh0.40 - 1.00 mg/dLMercy Health Defiance Hospital Sova SystemComment on above:METHOD TRACEABLE TO IDMS STANDARDEGFR Non-Race Dependent 38Low- [facility] SystemComment on above:eGFR not reported due to non- numeric value for Creatinine. Reported eGFR is based on the CKD-EPI 2020 equation that does not use a race coefficient. Glucose [Mass/Vol]300 mg/nCQtch18 - 99 mg/dLKettering Health DaytonStar.me System Interpretation and review of laboratory resultsAbnormalBluffton Hospital System Potassium [Moles/Vol]4.7 mmol/L3.5 - 5.0 mmol/LProMedica Health SystemProtein [Mass/Vol]8.2 g/dLHigh6.0 - 8.0 g/dLProWalker County Hospital Health SystemSodium [Moles/Vol]134 mmol/L134 - 146 mmol/LProMedica Health SystemUrea nitrogen [Mass/Vol]31 mg/dL High5 - 27 mg/dLWellSpan Good Samaritan HospitalCritical Careon 57-87-9133WzymbJack Milligan DO 05/14/2025 10:54 PM Critical Care [...] my specialty: yes Care discussed with: admitting providerWellSpan Good Samaritan HospitalECG 12 leadOrdered By: Binta Quesada on 99-18-0406JwbUhydtnCommunity Regional Medical CenterGas panel (BldA)on 42-55-8747Jmvttils patency Wrist artery --pre arterial punctureN/AProMedica Health SystemBase deficit (Bld) [Moles/Vol]-3 mmol/LLow0.0 - 2.0 mmol/LProMedica [facility] SystemCO2 (Bld) [Partial pressure]41.4 mm[Hg] [facility] SystemHCO3 (Bld) [Moles/Vol]22.8 mmol/L22.0 - 26.0 mmol/L [facility] SystemInterpretation and review of laboratory resultsAbnormal [facility] SystemOxygen (Bld) [Partial pressure]67 mm[Hg]LowProBarney Children'S Medical Center SystemOxygen therapy source and amount [CARE]NCProMedica Health SystempH (Bld)7.349 [pH]Low7.350 - 7.450[facility] SystemSpecimen site NarrativeL RadBluffton Hospital SystemSpecimen type Nom (Spec)ARTERIALProBeloit Memorial Hospital SystemHEMOGLOBINon 27-13-8792Encjcrwneu (Bld) [Mass/Vol] 11.5 g/dLLow11.7-15.5PMercy HealthComment on above:Performed By: #### HGB ####[facility] ([facility])[address] [place] [address] VIRHemoglobinon 62-46-6349Lrxggebwls (Bld) [Mass/Vol]11.5 g/dLLow11.7 - 15.5 g/dLBluffton Hospital SystemInterpretation and review of laboratory resultsAbnormalMercy Health Defiance Hospital Health SystemLACTATE W/ REFLEXon 05-13-2025 LACTATE W/REFLEX1.5 mmol/LNormal0.4-2.0[facility] SystemComment on above:Order Comment: Result did not trigger repeat Lactate,re-order if needed. Performed By: #### LACTS ####[facility] ([facility])[address] [place] [address] VIRLactate w/ Reflexon 88-38-5841Gutpbmelqvpcaz and review of laboratory resultsNormalMercy Health Defiance Hospital Health SystemLactate (P obed) [Moles/Vol]1.5 mmol/L0.4 - 2.0 mmol/LPrUC Medical Center SystemResult did not trigger repeat Lactate, re-order if needed.[facility] SystemKettering Health Daytonca Health SystemLight Blue Top on 86-54-4464Aenqf TubeAuto ResultedProBarney Children'S Medical Center SystemKettering Health Daytonca Health SystemNo Panel Informationon 62-75-7840XadDjxgxs Health SystemPLATELET COUNTon 10-47-7031Edjxtwbr mean volume (Bld) [Entitic vol]8.3 fLNormal7-12PMercy HealthComment on above:Performed By: #### PLTCT ####[facility] ([facility])[address] [place] [address] VIRPlatelets (Bld) [#/Vol]214 10*3/iQKqatjl253-472MlxEdepfuBlanchard Valley Health SystemComment on above: Performed By: #### PLTCT ####[facility] ([address] [place] [address] VIRPROCALCITONINon 24-99-9221CABHYDLRGIHSV4.05 ng/mL High<0.05Bl[facility] Health SystemComment on above:Order Comment: <0.50 ng/mL - Low risk of severe sepsis and/or septic shock.<2.00 ng/mL - Recommend retesting within 6-24 hours.>2.00 ng/mL - High risk of sepsis and/or septic shock. Performed By: #### PCAL ####[facility] ([address], [place] VIRPST TOPon 32-66-3986Kpnpi TubeAuto Resulted [facility] SystemPlatelet counton 05-13-2025 Interpretation and review of laboratory resultsNoCounts include 234 beds at the [facility] Platelet mean volume (Bld) [Entitic vol]8.3 fL7 - 12 [facility] Platelets (Bld) [#/Vol]214 10*3/uLCommunity Regional Medical CenterProcalcitoninon 04-12-2449Dkyltkifbtmyga and review of laboratory resultsAbnoCounts include 234 beds at the [facility]'s HospitalProcalcitonin IA [Mass/Vol]0.05 ng/mLHighNINF - 0.05 ng/mLCommunity Regional Medical Center<0.50 ng/mL - Low risk of severe sepsis and/or septic shock. <2.00 ng/mL - Recommend retesting within 6-24 hours. >2.00 ng/mL - High risk of sepsis and/or septic shock.[facility] Sova SystemTROP I, HIGH SENSITIVITY 1 HOURon 95-20-0412SOXTZBLF I, HIGH CTDEXKTNTAU87 ng/LHigh<16ProBaptist Saint Anthony'S HospitalComment on above:Order Comment: Elevations of hs-Troponin may be due to causesother than myocardial ischemia.Recommend serial hs-Troponin testing be performed.For the initial evaluation and management of chestpain patients, refer to the algorithms linked below.Emergency Patient:[email or web address]://www.Cardica.Quick Key/dv/dl.aspx?d= [email or web address]&[email or web address]=acaeaInpatient:[email or web address]://www.Cardica.Quick Key/dv/dl.aspx?d =[email or web address]&u=95314&uh=acaeaPerformed By: #### TNIHS1 ####[facility] ([address] [place] [address] VIRTROPONIN I, HIGH SENSITIVITY 0 HOURon 18-61-9703LFSWMOHY I, HIGH LJJRJUDOHYV44 ng/LHigh <16[facility] SystemComment on above:Performed By: #### TNIHS0 ####[facility]Daniel[facility] ([address] [place] [address] VIRTroponin I, High Sensitivity 0 Houron 58-04-3612Tphrwqvecgxvdk and review of laboratory resultsAbPan American HospitalTroponin I.cardiac High sensitivity method [Mass/Vol]35 ng/LHighNINF - 16 ng/LProMedHospital Sisters Health System [facility] SystemTroponin I, High Sensitivity 1 Houron 05-13-2025 Interpretation and review of laboratory resultsAbPan American Hospital Troponin I.cardiac High sensitivity method [Mass/Vol]26 ng/LHighNINF - 16 ng/L [facility] Medical CenterElevations of hs-Troponin may be due to causes other than myocardial ischemia. Recommend serial hs-Troponin testing be performed. For the initial evaluation and management of chest pain patients, refer to the algorithms linked below. Emergency Patient: [email or web address].Garden Mate/dv/dl.aspx?[email or web address]&uh=acaea Inpatient: [email or web address]://www.Cardica.Quick Key/dv/dl.aspx?y=[email or web address]&uh=[email or web address] Good Samaritan HospitalXR CHEST 1 VWon 56-66-4463NP CHEST 1 VW NormalBlanchard Valley Health SystemXR Chest Single viewon 13-43-7976FeurabBerry Wyman MD - 05/13/2025 Procedure: Chest x-ray performed Number of views:1 History:Shortness of breath Comparison:04/28/2025 Findings: The heart and lungs show no acute findings, and the mediastinum and stanley are grossly negative . Tube overlying right chest stable. Impression: 1. No acute change. Finalized by Berry Wyman MD on 05/13/2025 11:01 AM [facility] Medical CenterRadiology Study observation (narrative)[facility] Medical CenterXR Chest Single viewOrdered By: Berry Wyman on 46-14-4835JdmKjrjvgCommunity Regional Medical Center Work Phone: cbc WITH AUTO DIFFERENTIALon 46-21-4382TWIWXSLOD ABSOLUTE COUNT (10*3/UL) BY AUTOMATED COUNT0.0 10*3/uLNormal0.0-0.2PMercy HealthComment on above:Performed By: #### CBCA ####[facility] ([address] [id number] VIRBASOPHILS RELATIVE PERCENT BY AUTOMATED COUNT0.4 %NormalBlanchard Valley Health SystemComment on above:Performed By: #### CBCA ####[facility] ([address] [id number] VIRCELLAVISION DIFFERENTIAL TYPEAUTOMATED DIFFERENTIALNoalProBaptist Saint Anthony'S HospitalComment on above:Performed By: #### CBCA ####[facility] ([address] [address] VIREosinophils (Bld) [#/Vol]0.2 10*3/uLNormal0.0-0.4Bl[facility] Valley Health SystemComment on above:Performed By: #### CBCA ####[facility] ([address] [place], [id number] VIREOSINOPHILS RELATIVE PERCENT BY AUTOMATED COUNT3.5 %NormalProBaptist Saint Anthony'S HospitalComment on above: Performed By: #### CBCA ####[facility] ([address], [id number] VIRErythrocyte distribution width (RBC) [Ratio]15.8 % High11.5-15ProBaptist Saint Anthony'S HospitalComment on above:Performed By: #### CBCA ####[facility] ([address], [id number] VIRHematocrit (Bld) [Volume fraction]32.5 %Otv54-95VxtEzjwfrBaptist Saint Anthony'S Hospital Comment on above:Performed By: #### CBCA ####[facility] ([address], [id number] VIRHemoglobin (Bld) [Mass/Vol]10.6 g/dL Low11.7-15.5PMercy HealthComment on above:Performed By: #### CBCA ####[facility] ([address], [id number] VIRLYMPHOCYTES ABSOLUTE COUNT (10*3/UL) BY AUTOMATED COUNT1.4 10*3/uLNormal 1.0-3.5PMercy HealthComment on above:Performed By: #### CBCA ####[facility] ([address], [id number] VIRLYMPHOCYTES RELATIVE PERCENT BY AUTOMATED COUNT20.3 %NormalProBaptist Saint Anthony'S HospitalComment on above:Performed By: #### CBCA ####[facility] ([address], [id number] VIRMCH (RBC) [Entitic mass] 27.4 xcTlalpn99-88QmgRdfpebBaptist Saint Anthony'S HospitalComment on above:Performed By: #### CBCA ####[facility] ([facility])[address] [place] [address] [place] [address] VIRMCHC (RBC) [Mass/Vol]32.5 g/zSNzeznl39-56AxbDxehryGrant Hospital on above:Performed By: #### CBCA ####[facility] ([facility])[address] [place] [address] [address], [id number] VIRMCV (RBC) [Entitic vol]84 fLNormal 80-100ProBaptist Saint Anthony'S HospitalComment on above:Performed By: #### CBCA ####[facility] ([address], [id number] VIRMONOCYTES ABSOLUTE COUNT (10*3/UL) BY AUTOMATED COUNT0.7 10*3/uLNormal0.0-0.9 [facility] SystemComment on above:Performed By: #### CBCA ####[facility] ([address], [place] VIRMONOCYTES RELATIVE PERCENT BY AUTOMATED COUNT10.4 %NormalBlanchard Valley Health SystemComment on above:Performed By: #### CBCA ####[facility] ([address], [id number] VIRNEUTROPHILS ABSOLUTE COUNT BY AUTOMATED COUNT4.5 10*3/uLNormal1.5-6.6Bl[facility] Health SystemComment on above:Performed By: #### CBCA ####[facility] ([facility])[address] [place], [place] [address]E.[place], [id number] VIRNEUTROPHILS RELATIVE PERCENT BY AUTOMATED COUNT65.4 %NormalProBaptist Saint Anthony'S HospitalComment on above:Performed By: #### CBCA ####[facility] ([facility])[address] [place] [address] [place] [address] VIRPlatelet mean volume (Bld) [Entitic vol]8.2 fLNormal7-12ProMedica Effingham HospitalComment on above:Performed By: #### CBCA ####[facility] ([facility] [address], [place] VIRPlatelets (Bld) [#/Vol]263 10*3/zGPfydoo047-430XvrQqjmxz [facility] HospitalComment on above: Performed By: #### CBCA ####[facility] ([facility])[address] [place], [place] [address], [place] VIRRBC COUNT3.86 X10E12/LNormal3.8-5.2PMercy HealthComment on above:Performed By: #### CBCA ####[facility] ([facility])[address] [place], [place] [address].[place], [id number] VIRWBC (Bld) [#/Vol] 6.8 10*3/uLNormal4-11ProBaptist Saint Anthony'S HospitalComment on above:Performed By: #### CBCA ####[facility] ([facility])[address] [place], [place] [address], [place] VIRCOMPREHENSIVE METABOLIC PANELon 87-27-6780Qudydte [Mass/Vol]3.3 g/dLNormal3.2-5.3PMercy HealthComment on above: Performed By: #### CMP ####[facility] ([address] [place] [address] VIRALP [Catalytic activity/Vol]119 U/OSsokvp86-314 [facility] SystemComment on above:Performed By: #### CMP ####[facility] ([facility])[address] [place] [address] [place] [address] VIRALT [Catalytic activity/Vol]16 U/LNormal<=31PMercy HealthComment on above:Performed By: #### CMP ####[facility] ([place] [address] [address] VIRAnion gap [Moles/Vol]10 mmol/LNormal5-15 [facility] SystemComment on above:Performed By: #### CMP ####[facility] ([facility])[address] [place] [address] [place] [address] VIRAST [Catalytic activity/Vol]21 U/LNormal<=41[facility] CenterComment on above:Performed By: #### CMP ####[facility] ([address] [place] [address] VIRBilirubin [Mass/Vol]0.4 mg/dLNormal0.3-1.2 [facility] SystemComment on above:Performed By: #### CMP ####[facility] ([address] [place] [address] VIRCalcium [Mass/Vol]8.9 mg/dLNormal8.5-10.5PMercy HealthComment on above: Performed By: #### CMP ####[facility] ([address] [place] [address] VIRChloride [Moles/Vol]100 mmol/STmwxka90-759 [facility] SystemComment on above:Performed By: #### CMP ####[facility] ([address] [place] [address] VIRCO2 [Moles/Vol]24 mmol/ZOvzdgl04-97KwuAxujhyMercy HealthComment on above: Performed By: #### CMP ####[facility] ([address] [place] [address] VIRCreatinine [Mass/Vol]1.37 mg/dLHigh0.40-1.00 [facility] SystemComment on above:Result Comment: METHOD TRACEABLE TO IDMS STANDARDPerformed By: #### CMP ####[facility] ([address] [place] [address] VIRGFR/1.73 sq M.predicted among non- blacks MDRD (S/P/Bld) [Vol rate/Area]40 mL/min/{1.73_m2}Low>=60ProBaptist Saint Anthony'S HospitalComment on above:Result Comment: eGFR not reported due to non-numeric value for Creatinine.Reported eGFR is based ontheCKD-EPI 2020 equation that doesnot use a race coefficient.Performed By: #### CMP ####[address] [address] VIRGlucose [Mass/Vol]348 mg/vPVkxu30-73BlsTdzluwBaptist Saint Anthony'S HospitalComment on above:Performed By: #### CMP ####[address] [address] VIRPotassium [Moles/Vol]4.1 mmol/LNormal3.5-5.0[facility] SystemComment on above:Performed By: #### CMP ####[address] [address] VIRProtein [Mass/Vol]7.6 g/dLNormal6.0-8.0[facility] SystemComment on above: Performed By: #### CMP ####[address] [address] VIRSodium [Moles/Vol]134 mmol/XOcrhkr572-763LjnOqvrmk [facility]remont HospitalComment on above:Performed By: #### CMP ####[address] [address] VIRUrea nitrogen [Mass/Vol]25 mg/dLNormal5-27ProBaptist Saint Anthony'S HospitalComment on above:Performed By: #### CMP ####[address] [address] VIRCT LUMBAR SPINE WO CONTon 42-10-9919RC LUMBAR SPINE WO CONTNormalProBaptist Saint Anthony'S HospitalPOCT NURSING URINE MACROSCOPIC UAon 55-98-0643HVQLMXCME NURNegativeNormalNegativeKettering Health Daytonca Mercy Medical CenterComment on above:Performed By: #### NUM ####[facility] ([address] [address] VIRBLOOD/HGB NURNegativeNormalNegative [facility] SystemComment on above:Performed By: #### NUM ####[facility] ([address] [address] VIRGLUCOSE WII127 mg/dLAbnormalNegativeBlanchard Valley Health SystemComment on above:Performed By: #### NUM ####[address] [address] VIRKETONES NURNegativeNormalNegativeKettering Health Daytonca Mercy Medical CenterComment on above:Performed By: #### NUM ####[facility] ([address] [address] VIRLEUKOCYTE ESTERASE MARYJO NegativeNormalNegativeBlanchard Valley Health SystemComment on above:Performed By: #### NUM ####[facility] ([address] [address] VIRNITRITE NURNegativeNormalNegativeKettering Health Daytonca Mercy Medical CenterComment on above:Performed By: #### NUM ####[facility] ([address] [address] VIRPH NUR5.3Nngsiy2.0, 6.0, 6.5, 7.0, 7.5, 8.0, 8.5, 5.5ProMedica Mercy Medical CenterComment on above:Performed By: #### NUM ####[facility] ([address] [place] [address] VIRPROTEIN NURNegativeNormalNegativeProPomerene Hospitalca Effingham HospitalComment on above:Performed By: #### NUM ####[facility] ([address] [place] [address] VIRSPECIFIC GRAVITY NUR1.015 Normal1.010, 1.015, 1.020, 1.025[facility] SystemComfresenius medical care at [facility] [place] on above: Performed By: #### NUM ####[facility] ([address] [place] [address] VIRUROBILINOGEN NUR0.2 E.U./dLNormLakeHealth Beachwood Medical CenterComment on above:Performed By: #### NUM ####[facility] ([address] [address] VIRURINE CULTUREon 05-12-2025 Bacteria identified Cx Nom (U)CULTURE RESULTS NO GROWTH AT <1000 CFU/mLNormalBlanchard Valley Health SystemComment on above: Performed By: #### UC ####[facility] (TT)[address] [facility] [address], [place] [address] VIRXR SPINE LUMBAR 2 OR 3 VWSon 50-49-7058WT SPINE LUMBAR 2 OR 3 VWSNormMetroHealth [facility] WITH AUTO DIFFERENTIALon 12-32-1838VUTTDVIAC ABSOLUTE COUNT (10*3/UL) BY AUTOMATED COUNT 0.1 10*3/uLNormal0.0-0.2ProMedica Mercy Medical CenterComfresenius medical care at [facility] on above:Performed By: #### CBCA ####[facility] ([address] VIRBASOPHILS RELATIVE PERCENT BY AUTOMATED COUNT0.9 %Normal [facility] SystemComfresenius medical care at [facility] on above:Performed By: #### CBCA ####[facility] ([address] [id number] VIR CELLAVISION DIFFERENTIAL TYPEAUTOMATED DIFFERENTIALBerger HospitalComfresenius medical care at [facility] on above:Performed By: #### CBCA ####[facility] ([address], [id number] VIREosinophils (Bld) [#/Vol] 0.3 10*3/uLNormal0.0-0.4[facility] SystemComment on above:Performed By: #### CBCA ####[facility] ([address], [id number] VIREOSINOPHILS RELATIVE PERCENT BY AUTOMATED COUNT2.9 % NormalBlanchard Valley Health SystemComment on above:Performed By: #### CBCA ####[facility] ([address], [id number] VIRErythrocyte distribution width (RBC) [Ratio]15.3 %High11.5-15[facility] SystemComment on above:Performed By: #### CBCA ####[facility] ([address], [place] VIRHematocrit (Bld) [Volume fraction]34.6 %Bgd83-83EfdJptszwBlanchard Valley Health SystemComment on above: Performed By: #### CBCA ####[facility] ([address], [id number] VIRHemoglobin (Bld) [Mass/Vol]11.3 g/dLLow11.7-15.5 [facility] SystemComment on above:Performed By: #### CBCA ####[facility] ([address], [id number] VIR LYMPHOCYTES ABSOLUTE COUNT (10*3/UL) BY AUTOMATED COUNT1.6 10*3/uLNormal1.0-3.5 [facility] SystemComment on above:Performed By: #### CBCA ####[facility] ([address], [id number] VIR LYMPHOCYTES RELATIVE PERCENT BY AUTOMATED COUNT13.6 %NormalBlanchard Valley Health SystemComment on above:Performed By: #### CBCA ####[facility] ([facility])[address] [place] [address] AVE.[place], [id number] VIRMCH (RBC) [Entitic mass] 27.6 dbRdytwp80-41EmdCvqvapBaptist Saint Anthony'S HospitalComment on above:Performed By: #### CBCA ####[facility] ([facility])[address] [place], [place] [address] [place] [address] VIRMCHC (RBC) [Mass/Vol]32.7 g/rXTnqfck82-82GcfVgeoswBaptist Saint Anthony'S Hospital Comment on above:Performed By: #### CBCA ####[facility] ([facility])[address] [place], [place] [address]E.[place], [id number] VIRMCV (RBC) [Entitic vol]84 fLNormal 80-100ProBaptist Saint Anthony'S HospitalComment on above:Performed By: #### CBCA ####[facility] ([facility])[address] [place] [address] [place], [place] VIRMONOCYTES ABSOLUTE COUNT (10*3/UL) BY AUTOMATED COUNT0.7 10*3/uLNormal0.0-0.9 [facility] SystemComment on above:Performed By: #### CBCA ####[facility] ([facility])[address] [place] [address] AVE.[place], [id number] VIRMONOCYTES RELATIVE PERCENT BY AUTOMATED COUNT6.4 %NormalProBaptist Saint Anthony'S HospitalComment on above:Performed By: #### CBCA ####[facility] ([facility])[address] [place] [address] AVE.[place], [id number] VIRNEUTROPHILS ABSOLUTE COUNT BY AUTOMATED COUNT8.9 10*3/uLHigh1.5-6.6[facility] SystemComment on above: Performed By: #### CBCA ####[facility] ([facility])[address] [place] [address] AVE.[place], [id number] VIRNEUTROPHILS RELATIVE PERCENT BY AUTOMATED COUNT76.2 %NormalBlanchard Valley Health SystemComment on above:Performed By: #### CBCA ####[facility] ([facility])[address], [id number] VIRPlatelet mean volume (Bld) [Entitic vol]8.0 fLNormal7-12PMercy HealthComment on above:Performed By: #### CBCA ####[facility] ([facility] [address], [id number] VIRPlatelets (Bld) [#/Vol]392 10*3/zUKiqmyq472-004AmxOffngs [facility]ont HospitalComment on above:Performed By: #### CBCA ####[facility] ([facility] [address], [id number] VIRRBC COUNT4.11 X10E12/LNormal3.8-5.2PMercy HealthComment on above:Performed By: #### CBCA ####[facility] ([facility])[address] [place], [place] [address].[place], [id number] VIRWBC (Bld) [#/Vol]11.7 10*3/uLHigh4-11ProBaptist Saint Anthony'S HospitalComment on above:Performed By: #### CBCA ####[facility] ([facility])[address] [place], [place] [address] [address] VIRCOMPREHENSIVE METABOLIC PANELon 09-72-9903Vkwsjfl [Mass/Vol]3.6 g/dL Normal3.2-5.3PMercy HealthComment on above:Performed By: #### CMP ####[facility] ([facility])[address] [place], [place] [address] [place] [address] VIRALP [Catalytic activity/Vol]154 U/MOnas76-545KflKrofcsBaptist Saint Anthony'S Hospital Comment on above:Performed By: #### CMP ####[facility] ([facility] [address] [place] [address] VIRALT [Catalytic activity/Vol]14 U/L Normal<=31PMercy HealthComment on above:Performed By: #### CMP ####[facility] ([facility])[address] [place] [address] [address] VIRAnion gap [Moles/Vol]15 mmol/LNormal5-15[facility] Comment on above:Performed By: #### CMP ####[facility] ([address] [place] [address] VIRAST [Catalytic activity/Vol]29 U/L Normal<=41ProBaptist Saint Anthony'S HospitalComment on above:Performed By: #### CMP ####[facility] ([address] [address] VIRBilirubin [Mass/Vol]0.9 mg/dLNormal0.3-1.2PMercy Health Comment on above:Performed By: #### CMP ####[facility] ([address] [place] [address] VIRCalcium [Mass/Vol]9.7 mg/dLNormal 8.5-10.5PMercy HealthComment on above:Performed By: #### CMP ####[facility] ([address] [address] VIRChloride [Moles/Vol]92 mmol/LSlo93-724KloQndrmeBaptist Saint Anthony'S HospitalComment on above:Performed By: #### CMP ####[facility] ([place] [address] [place] [address] VIRCO2 [Moles/Vol]26 mmol/WCtdcry54-11 [facility] SystemComment on above:Performed By: #### CMP ####[facility] ([place] [address] [place] [address] VIR Creatinine [Mass/Vol]1.47 mg/dLHigh0.40-1.00ProBaptist Saint Anthony'S HospitalComment on above:Result Comment: METHOD TRACEABLE TO IDDE STANDARDPerformed By: #### CMP ####[address] [address] VIRGFR/1.73 sq M.predicted among non-blacks MDRD (S/P/Bld) [Vol rate/Area] 36 mL/min/{1.73_m2}Low>=60ProBaptist Saint Anthony'S HospitalComment on above:Result Comment: eGFR not reported due to non-numeric value for Creatinine.Reported eGFR is based ontheCKD-EPI 1 equation that doesnot use a race coefficient. Performed By: #### CMP ####[address] [address] VIRGlucose [Mass/Vol]271 mg/gNBdpt07-14VjfVrxtxpBaptist Saint Anthony'S HospitalComment on above:Performed By: #### CMP ####[address] [address] VIRPotassium [Moles/Vol]4.6 mmol/LNormal3.5-5.0[facility] SystemComment on above: Performed By: #### CMP ####[address] [address] VIRProtein [Mass/Vol]8.4 g/dLHigh6.0-8.0[facility] SystemComment on above:Performed By: #### CMP ####[address] [address] VIRSodium [Moles/Vol]133 mmol/FJdk386-437GmrLelvxqBaptist Saint Anthony'S HospitalComment on above: Performed By: #### CMP ####[address] [address] VIRUrea nitrogen [Mass/Vol]17 mg/dLNormal5-27 [facility] SystemComment on above:Performed By: #### CMP ####[facility] ([address] [place] [address] VIRCT BRAIN WO CONTon 03-01-7416XE BRAIN WO CONTNormalProMedica Mercy Medical CenterPOCT NURSING URINE MACROSCOPIC UAon 53-85-3867JKMCGKCFC NURSmallAbnormalNegativeProBaptist Saint Anthony'S HospitalComment on above:Performed By: #### NUM ####[facility] ([address] [place] [address] VIRBLOOD/HGB MARYJO TraceAbnormalNegativeProBaptist Saint Anthony'S HospitalComment on above:Performed By: #### NUM ####[facility] ([address] [place] [address] VIRGLUCOSE NURNegativeNormalNegativeBlanchard Valley Health SystemComment on above:Performed By: #### NUM ####[facility] ([address] [address] VIRKETONES NUR40 mg/dL AbnormalNegativeBlanchard Valley Health SystemComment on above:Performed By: #### NUM ####[facility] ([address] [place] [address] VIRLEUKOCYTE ESTERASE NURSmallAbnormalNegativeBlanchard Valley Health System Comment on above:Performed By: #### NUM ####[facility] ([address] [place] [address] VIRNITRITE NURPositiveAbnormalNegative [facility] SystemComment on above:Performed By: #### NUM ####[facility] ([address] [place] [address] VIRPH NUR6.0 Normal5.0, 6.0, 6.5, 7.0, 7.5, 8.0, 8.5, 5.5ProMedica Mercy Medical CenterComment on above:Performed By: #### NUM ####[facility] ([facility])[address] [address] VIRPROTEIN QHH147 mg/dLAbnormalNegative [facility] SystemComment on above:Performed By: #### NUM ####[facility] ([facility])[address] [place] [address] VIRSPECIFIC GRAVITY NUR1.273Ouapsp1.010, 1.015, 1.020, 1.025[facility] Comment on above:Performed By: #### NUM ####[facility] ([facility])[address] [address] VIRUROBILINOGEN NUR0.2 E.U./dLNormal [facility] SystemComment on above:Performed By: #### NUM ####[facility] ([facility])[address] [place] [address] VIRURINE CULTUREon 24-01-1772Smakndqm identified Cx Nom (U)SusceptibleBlanchard Valley Health SystemComment on above:Performed By: #### UC ####[facility] (TTH)[address] [facility] [address] [address] VIRXR CHEST 1 VWon 87-65-1461GQ CHEST 1 VWNormalBlanchard Valley Health SystemTelemedicineon 04-05-2025 [id number] Cuca Dee 1945 F Date Provider Department Center 04/05/2025 [facility] INFEC [facility] Family History Problem Relation Age of Onset Diabetes Mother Hypertension Father Coronary artery disease Father Family Status - Relation Status Age at Mother Father Level of Service:42293 CO OFFICE/OUTPATIENT ESTABLISHED LOW MDM 20 MIN Reason for Visit and Comments: Follow-up [029704] - No longer on IV Antibiotics or oral and doing well. MRSA [647]NormalUnSelect Medical [facility]36on [id number] are in chartNormalUniversCleveland ClinicBASIC METABOLIC PANELon 04-03-2025 Anion gap [Moles/Vol]13 mmol/LNormal5-15[facility] SystemComment on above:Performed By: #### BMP ####[facility] ([facility])[address] [address] VIRCalcium [Mass/Vol]9.9 mg/dLNormal8.5-10.5 [facility] SystemComment on above:Performed By: #### BMP ####[facility] ([facility])[address] [address] [address] VIR Chloride [Moles/Vol]98 mmol/CFikopm53-287FnoLkmqxzBlanchard Valley Health SystemComment on above:Performed By: #### BMP ####[facility] ([facility])[address] [address] VIRCO2 [Moles/Vol]25 mmol/QKsmtym92-46 [facility] SystemComment on above:Performed By: #### BMP ####[facility] ([facility])[address] [address] VIR Creatinine [Mass/Vol]1.30 mg/dLHigh0.40-1.00[facility] SystemComment on above:Result Comment: METHOD TRACEABLE TO IDMS STANDARDPerformed By: #### BMP ####[facility] ([facility])[address] [address] VIRGFR/1.73 sq M.predicted among non-blacks MDRD (S/P/Bld) [Vol rate/Area] 42 mL/min/{1.73_m2}Low>=60ProBaptist Saint Anthony'S HospitalComment on above:Result Comment: Reported eGFR is based on theCKD-EPI 2020 equation that doesnot use a race coefficient.Performed By: #### BMP ####[facility] ([facility])[address] [address] VIRGlucose [Mass/Vol]227 mg/dLHigh 65-99ProBaptist Saint Anthony'S HospitalComment on above:Performed By: #### BMP ####[facility] ([facility])[address] [facility] [address] [address] VIRPotassium [Moles/Vol]4.2 mmol/LNormal3.5-5.0[facility] Comment on above:Performed By: #### BMP ####[facility] ([facility])[address] [facility] [address] [address] VIRSodium [Moles/Vol]136 mmol/L Fbztto237-693HiqQhocnrBaptist Saint Anthony'S HospitalComment on above:Performed By: #### BMP ####[facility] ([facility])[address] [facility] [address] [address] VIRUrea nitrogen [Mass/Vol]17 mg/dLNormal5-27[facility] Comment on above:Performed By: #### BMP ####[facility] ([facility])[address] [facility] [address] [address] VIRCBC WITH AUTO DIFFERENTIALon 91-68-2798XKTFTQEQF ABSOLUTE COUNT (10*3/UL) BY AUTOMATED COUNT0.1 10*3/uLNormal 0.0-0.2PMercy HealthComfresenius medical care at [facility] [place] on above:Order Comment: Abnormal CBC with auto diff reflexes to a manual diffResult Comment: This is an appended report. These results have been appended to a previously preliminary verified report.Performed By: #### CBCA ####[facility] ([facility])[address] [facility] [address], [place] [address] VIRBASOPHILS RELATIVE PERCENT BY AUTOMATED COUNT0.8 %NormalProBaptist Saint Anthony'S HospitalComment on above:Order Comment: Abnormal CBC with auto diff reflexes to a manual diffResult Comment: This is an appended report. These results have been appended to a previously preliminary verified report.Performed By: #### CBCA ####[facility] ([facility])[address] [facility] [address], [place] [address] VIRCELLAVISION DIFFERENTIAL TYPE AUTOMATED DIFFERENTIALNormalProCook Children's Medical Center on above:Order Comment: Abnormal CBC with auto diff reflexes to a manual diffResult Comment: This is an appended report. These results have been appended to a previously preliminary verified report.Performed By: #### CBCA ####[facility] ([facility])[address], [place] [address] VIREosinophils (Bld) [#/Vol]0.4 10*3/uLNormal0.0-0.4[facility] Health SystemComfresenius medical care at [facility] on above:Order Comment: Abnormal CBC with auto diff reflexes to a manual diffResult Comment: This is an appended report. These results have been appended to a previously preliminary verified report.Performed By: #### CBCA ####[facility] ([facility])[address] [facility] [address], [place] [address] VIREOSINOPHILS RELATIVE PERCENT BY AUTOMATED COUNT4.5 %NormalProBaptist Saint Anthony'S HospitalComfresenius medical care [facility] on above:Order Comment: Abnormal CBC with auto diff reflexes to a manual diff Result Comment: This is an appended report. These results have been appended to a previously preliminary verified report.Performed By: #### CBCA ####[facility] ([facility])[address] [facility] [address], [place] [address] VIR Erythrocyte distribution width (RBC) [Ratio]15.9 %High11.5-15ProBaptist Saint Anthony'S HospitalComfresenius medical care [facility] on above:Order Comment: Abnormal CBC with auto diff reflexes to a manual diffPerformed By: #### CBCA ####[facility] ([facility])[address] [facility] [address], [place] [address] VIRHematocrit (Bld) [Volume fraction]32.9 %Yqg76-22EdmIurcdkBaptist Saint Anthony'S HospitalComfresenius [facility] on above:Order Comment: Abnormal CBC with auto diff reflexes to a manual diffPerformed By: #### CBCA ####[facility] ([facility])[address], [place] [address] VIRHemoglobin (Bld) [Mass/Vol]10.9 g/dLLow11.7-15.5ProMedica Effingham HospitalComment on above:Order Comment: Abnormal CBC with auto diff reflexes to a manual diffPerformed By: #### CBCA ####[facility] ([facility])[address] [address] VIRLYMPHOCYTES ABSOLUTE COUNT (10*3/UL) BY AUTOMATED COUNT1.4 10*3/uLNormal1.0-3.5PMercy Health Comment on above:Order Comment: Abnormal CBC with auto diff reflexes to a manual diffResult Comment: This is an appended report. These results have been appended to a previously preliminary verified report.Performed By: #### CBCA ####[facility] ([facility])[address] [address] VIRLYMPHOCYTES RELATIVE PERCENT BY AUTOMATED COUNT17.6 %NormalProBaptist Saint Anthony'S HospitalComfresenius medical care [facility] on above:Order Comment: Abnormal CBC with auto diff reflexes to a manual diffResult Comment: This is an appended report. These results have been appended to a previously preliminary verified report.Performed By: #### CBCA ####[facility] ([facility])[address] [address] VIRH (RBC) [Entitic mass]27.6 qmUlbgys10-49QnyBkyojyBaptist Saint Anthony'S HospitalComment on above:Order Comment: Abnormal CBC with auto diff reflexes to a manual diffPerformed By: #### CBCA ####[facility] ([facility])[address] [address] VIRHC (RBC) [Mass/Vol]33.2 g/[id number] Saint Anthony'S HospitalComment on above:Order Comment: Abnormal CBC with auto diff reflexes to a manual diffPerformed By: #### CBCA ####[facility] ([facility])[address] [address] VIRV (RBC) [Entitic vol]83 [id number] Fremont HospitalComment on above:Order Comment: Abnormal CBC with auto diff reflexes to a manual diffPerformed By: #### CBCA ####[facility] ([facility])[address], [place] [address] VIRMONOCYTES ABSOLUTE COUNT (10*3/UL) BY AUTOMATED COUNT0.6 10*3/uLNormal0.0-0.9[facility] Comment on above:Order Comment: Abnormal CBC with auto diff reflexes to a manual diffResult Comment: This is an appended report. These results have been appended to a previously preliminary verified report.Performed By: #### CBCA ####[facility] ([facility])[address], [place] [address] VIR MONOCYTES RELATIVE PERCENT BY AUTOMATED COUNT7.9 %NormalBlanchard Valley Health SystemComment on above:Order Comment: Abnormal CBC with auto diff reflexes to a manual diffResult Comment: This is an appended report. These results have been appended to a previously preliminary verified report.Performed By: #### CBCA ####[facility] ([facility])[address], [place] [address] VIRNEUTROPHILS ABSOLUTE COUNT BY AUTOMATED COUNT5.6 10*3/uLNormal1.5-6.6 [facility] SystemComment on above:Order Comment: Abnormal CBC with auto diff reflexes to a manual diffResult Comment: This is an appended report. These results have been appended to a previously preliminary verified report.Performed By: #### CBCA ####[facility] ([facility])[address], [place] [address] VIRNEUTROPHILS RELATIVE PERCENT BY AUTOMATED COUNT69.2 % NormalBlanchard Valley Health SystemComment on above:Order Comment: Abnormal CBC with auto diff reflexes to a manual diffResult Comment: This is an appended report. These results have been appended to a previously preliminary verified report.Performed By: #### CBCA ####[facility] ([facility])[address], [place] [address] VIRPlatelet mean volume (Bld) [Entitic vol] 8.8 fLNormal7-12PMercy HealthComment on above:Order Comment: Abnormal CBC with auto diff reflexes to a manual diffPerformed By: #### CBCA ####[facility] ([facility])[address] [address] VIRPlatelets (Bld) [#/Vol]314 10*3/uBWxbhqn275-575ObfFmwnwq [facility] HospitalComfresenius [facility] [place] on above:Order Comment: Abnormal CBC with auto diff reflexes to a manual diffPerformed By: #### CBCA ####[facility] ([facility])[address] [address] VIRRBC COUNT3.96 X10E12/LNormal 3.8-5.2PMercy HealthComfresenius [facility] [place] on above:Order Comment: Abnormal CBC with auto diff reflexes to a manual diffPerformed By: #### CBCA ####[facility] ([facility])[address] [address] VIR WBC (Bld) [#/Vol]8.0 10*3/uLNormal4-11[facility] Health SystemComfresenius medical [facility] [place] on above:Order Comment: Abnormal CBC with auto diff reflexes to a manual diff Performed By: #### CBCA ####[facility] ([facility])[address] [address] VIRCK TOTALon 45-20-0380WDW832 U/IPokk62-996 [facility] SystemComment on above:Performed By: #### CPK ####[facility] ([facility])[address] [address] VIR36 on [id number] up call made to get pt scheduled for follow up appt, VM was left on Pts daughter phone.NormalUnSelect Medical [facility]36Labs are in Chart NormalUnSelect Medical OhioHealth Rehabilitation Hospital - DublinBASIC METABOLIC PANELon 73-77-8851Hhomw gap [Moles/Vol]9 mmol/LNormal5-15ProMedica Effingham HospitalComment on above: Performed By: #### BMP ####[facility] ([facility])[address] [address] VIRCalcium [Mass/Vol]9.2 mg/dLNormal8.5-10.5 [facility] SystemComment on above:Performed By: #### BMP ####[facility] ([facility])[address] [facility] [address] [address] VIR Chloride [Moles/Vol]96 mmol/XWbh15-319FfiGtivlhBlanchard Valley Health SystemComment on above:Performed By: #### BMP ####[facility] ([facility])[address] [facility] [address] [address] VIRCO2 [Moles/Vol]31 mmol/CFjhayg25-79 [facility] SystemComment on above:Performed By: #### BMP ####[facility] ([facility])[address] [facility] [address] [address] VIR Creatinine [Mass/Vol]1.58 mg/dLHigh0.40-1.00Bl[facility] Valley Health SystemComment on above:Result Comment: METHOD TRACEABLE TO IDMS STANDARDPerformed By: #### BMP ####[facility] ([facility])[address] [facility] [address] [address] VIRGFR/1.73 sq M.predicted among non-blacks MDRD (S/P/Bld) [Vol rate/Area] 33 mL/min/{1.73_m2}Low>=60ProBaptist Saint Anthony'S HospitalComment on above:Result Comment: Reported eGFR is based on theCKD-EPI 2020 equation that doesnot use a race coefficient.Performed By: #### BMP ####[facility] ([facility])[address] [facility] [address] [address] VIRGlucose [Mass/Vol]328 mg/dLHigh 65-99ProBaptist Saint Anthony'S HospitalComment on above:Performed By: #### BMP ####[facility] ([facility])[address] [facility] [address] [address] VIRPotassium [Moles/Vol]4.2 mmol/LNormal3.5-5.0[facility] Comment on above:Performed By: #### BMP ####[facility] ([facility])[address] [facility] [address] [address] VIRSodium [Moles/Vol]136 mmol/L Zmgnxq250-867DngYrfbbkBlanchard Valley Health SystemComment on above:Performed By: #### BMP ####[facility] ([facility])[address] [facility] [address] [address] VIRUrea nitrogen [Mass/Vol]22 mg/dLNormal5-27[facility] Comment on above:Performed By: #### BMP ####[facility] ([facility])[address] [facility] [address] [address] VIRBasic metabolic panelon 47-59-9295Zqphd gap [Moles/Vol]9 mmol/L5 - 15 mmol/[facility] HospitaloMedl.[facility] Calcium [Mass/Vol]9.2 mg/dL8.5 - 10.5 mg/dLBluffton Hospital SystemChloride [Moles/Vol]96 mmol/LLow98 - 109 mmol/[facility] HospitaloMedica Health SystemCO2 [Moles/Vol]31 mmol/L22 - 32 mmol/[facility] HospitaloMedl.[facility] Health SystemCreatinine [Mass/Vol]1.58 mg/dLHigh 0.40 - 1.00 mg/dLCommunity Regional Medical CenterComment on above:METHOD TRACEABLE TO IDMS STANDARDEGFR Non-Race Sodgfqojg30Fhp- PINSSM Health Cardinal Glennon Children's HospitalComment on above:Reported eGFR is based on the CKD-EPI 2020 equation that does not use a race coefficient. Glucose [Mass/Vol]328 mg/jNFfad31 - 99 mg/dLBluffton Hospital SystemPotassium [Moles/Vol]4.2 mmol/L3.5 - 5.0 mmol/LProMedica Health SystemSodium [Moles/Vol] 136 mmol/L134 - 146 mmol/LProMedica Health SystemUrea nitrogen [Mass/Vol]22 mg/dL5 - 27 mg/dLCommunity Regional Medical CenterCBC WITH AUTO DIFFERENTIALon 03-26-2025 CELLAVISION DIFFERENTIAL TYPEMANUAL DIFFERENTIALNormalBlanchard Valley Health System Comment on above:Order Comment: Abnormal CBC with auto diff reflexes to a manual diffResult Comment: This is an appended report. These results have been appended to a previously preliminary verified report.Performed By: #### CBCA ####[facility] ([facility])[address], [place] [address] VIRCELLAVISION ELLIPTOCYTES IN BLOOD BY LIGHT MICROSCOPY1+NormalBlanchard Valley Health SystemComment on above:Order Comment: Abnormal CBC with auto diff reflexes to a manual diffResult Comment: This is an appended report. These results have been appended to a previously preliminary verified report.Performed By: #### CBCA ####[facility] ([facility])[address], [place] [address] VIRCELLAVISION EOSINOPHILS ABSOLUTE COUNT (10*3/UL) BY MANUAL COUNT0.5 10*3/uLHigh0.0-0.4Bl[facility] Valley Health SystemComment on above: Order Comment: Abnormal CBC with auto diff reflexes to a manual diffResult Comment: This is an appended report. These results have been appended to a previously preliminary verified report.Performed By: #### CBCA ####[facility] ([facility])[address], [place] [address] VIR CELLAVISION EOSINOPHILS PERCENT BY MANUAL COUNT7 %NormalBlanchard Valley Health SystemComment on above:Order Comment: Abnormal CBC with auto diff reflexes to a manual diffResult Comment: This is an appended report. These results have been appended to a previously preliminary verified report.Performed By: #### CBCA ####[facility] ([facility])[address], [place] [address] VIRCELLAVISION LYMPHOCYTES ABSOLUTE COUNT (10*3/UL) BY MANUAL COUNT0.9 10*3/uLLow1.0-3.5PMercy HealthComment on above:Order Comment: Abnormal CBC with auto diff reflexes to a manual diffResult Comment: This is an appended report. These results have been appended to a previously preliminary verified report.Performed By: #### CBCA ####[facility] ([facility])[address] [facility] [address], [place] [address] VIRCELLAVISION LYMPHOCYTES RELATIVE PERCENT BY MANUAL COUNT12 %NormalProBaptist Saint Anthony'S HospitalComfresenius medical [facility] [place] on above:Order Comment: Abnormal CBC with auto diff reflexes to a manual diffResult Comment: This is an appended report. These results have been appended to a previously preliminary verified report.Performed By: #### CBCA ####[facility] ([facility])[address] [facility] [address], [place] [address] VIR CELLAVISION MONOCYTES ABSOLUTE COUNT (10*3/UL) IN BLOOD BY MANUAL COUNT0.4 10*3/uLNormal0.0-0.9ProBaptist Saint Anthony'S HospitalComfresenius medical [facility] [place] on above:Order Comment: Abnormal CBC with auto diff reflexes to a manual diffResult Comment: This is an appended report. These results have been appended to a previously preliminary verified report.Performed By: #### CBCA ####[facility] ([facility])[address] [address] VIRCELLAVISION MONOCYTES RELATIVE PERCENT BY MANUAL COUNT5 %NormalProBaptist Saint Anthony'S HospitalComfresenius medical [facility] [place] on above:Order Comment: Abnormal CBC with auto diff reflexes to a manual diffResult Comment: This is an appended report. These results have been appended to a previously preliminary verified report.Performed By: #### CBCA ####[facility] ([facility])[address] [facility] [address] [address] VIRCELLAVISION NEUTROPHILS ABSOLUTE COUNT BY MANUAL COUNT5.5 10*3/uLNormal1.5-6.6ProBaptist Saint Anthony'S HospitalComment on above:Order Comment: Abnormal CBC with auto diff reflexes to a manual diffResult Comment: This is an appended report. These results have been appended to a previously preliminary verified report.Performed By: #### CBCA ####[facility] ([facility])[address], [place] [address] VIRCELLAVISION NEUTROPHILS RELATIVE PERCENT BY MANUAL COUNT 76 %NormalProBaptist Saint Anthony'S HospitalComment on above:Order Comment: Abnormal CBC with auto diff reflexes to a manual diffResult Comment: This is an appended report. These results have been appended to a previously preliminary verified report.Performed By: #### CBCA ####[facility] ([facility])[address], [place] [address] VIRErythrocyte distribution width (RBC) [Ratio]16.8 %High11.5-15ProBaptist Saint Anthony'S HospitalComfresenius medical [facility] [place] on above:Order Comment: Abnormal CBC with auto diff reflexes to a manual diffPerformed By: #### CBCA ####[facility] ([facility])[address] [facility] [address], [place] [address] VIRHematocrit (Bld) [Volume fraction]28.9 %Xah61-48NmqBuhovsBaptist Saint Anthony'S HospitalComment on above:Order Comment: Abnormal CBC with auto diff reflexes to a manual diffPerformed By: #### CBCA ####[facility] ([facility])[address], [place] [address] VIRHemoglobin (Bld) [Mass/Vol]9.5 g/dLLow11.7-15.5PMercy HealthComment on above:Order Comment: Abnormal CBC with auto diff reflexes to a manual diffPerformed By: #### CBCA ####[facility] ([facility])[address] [facility] [address], [place] [address] VIRH (RBC) [Entitic mass]27.7 zkXjfspe31-66ZpdVwmqicBaptist Saint Anthony'S HospitalComment on above:Order Comment: Abnormal CBC with auto diff reflexes to a manual diffPerformed By: #### CBCA ####[facility] ([facility])[address], [place] [address] VIRMCHC (RBC) [Mass/Vol]32.9 g/sYKsusiv78-72ZnoPybntnBaptist Saint Anthony'S HospitalComment on above:Order Comment: Abnormal CBC with auto diff reflexes to a manual diffPerformed By: #### CBCA ####[facility] ([facility])[address] [address] VIRMCV (RBC) [Entitic vol]84 lRSnqcrz94-288HbsLazcocBlanchard Valley Health SystemComfresenius [facility] [place] on above:Order Comment: Abnormal CBC with auto diff reflexes to a manual diffPerformed By: #### CBCA ####[facility] ([facility])[address] [address] VIRPlatelet mean volume (Bld) [Entitic vol]9.1 fLNormal7-12PMercy HealthComfresenius medical care [facility] [place] on above:Order Comment: Abnormal CBC with auto diff reflexes to a manual diffPerformed By: #### CBCA ####[facility] ([facility])[address] [address] VIRPlatelets (Bld) [#/Vol]233 10*3/fMFeujjv699-637OusNivfjz [facility]ont HospitalComfresenius [facility] [place] on above:Order Comment: Abnormal CBC with auto diff reflexes to a manual diffPerformed By: #### CBCA ####[facility] ([facility])[address] [place] [address] VIRRBC COUNT3.43 X10E12/LLow3.8-5.2PMercy HealthComfresenius medical [facility] [place] on above:Order Comment: Abnormal CBC with auto diff reflexes to a manual diffPerformed By: #### CBCA ####[facility] ([facility])[address] [place] [address] VIRWBC (Bld) [#/Vol]7.3 10*3/uLNormal4-11[facility] SystemComfresenius medical [facility] [place] on above:Order Comment: Abnormal CBC with auto diff reflexes to a manual diff Performed By: #### CBCA ####[facility] ([facility])[address] [place] [address] VIRCK TOTALon 28-26-6824UBX439 U/FVifk12-388 [facility] SystemComment on above:Performed By: #### CPK ####[facility] ([facility])[address] [address] VIRCK Totalon 42-39-6241PA [Catalytic activity/Vol]265 U/LHigh24 - 170 U/LProMedica Cincinnati [facility]riners Hospital SystemNo Panel Informationon 57-13-2215Mjxxzcncezfmge and review of laboratory resultsAbnormalProMedidc Health SystemProBarney Children'S Medical Center SystemCT LUMBAR SPINE WO CONTon 72-23-1482VU LUMBAR SPINE WO CONTNormalProBaptist Saint Anthony'S Hospital36on 55-37-837503Liip are in PromedicaNormalUniversity of The Medical Center Of Southeast TexasBASI METABOLIC PANELon 99-49-9324Lwxae gap [Moles/Vol]11 mmol/LNormal5-15 [facility] SystemComment on above:Performed By: #### BMP ####[facility] ([facility])[address] [address] VIR Calcium [Mass/Vol]9.4 mg/dLNormal8.5-10.5PMercy HealthComment on above:Performed By: #### BMP ####[facility] ([facility])[address] [address] VIRChloride [Moles/Vol]99 mmol/DHesuiq40-711 [facility] SystemComment on above:Performed By: #### BMP ####[facility] ([facility])[address] [address] VIRCO2 [Moles/Vol]28 mmol/URvotyx78-87OqfOfseewMercy HealthComment on above: Performed By: #### BMP ####[facility] ([facility])[address] [address] VIRCreatinine [Mass/Vol]1.83 mg/dLHigh0.40-1.00 [facility] SystemComment on above:Result Comment: METHOD TRACEABLE TO IDMS STANDARDPerformed By: #### BMP ####[facility] ([facility])[address] [address] VIRGFR/1.73 sq M.predicted among non-blacks MDRD (S/P/Bld) [Vol rate/Area]28 mL/min/{1.73_m2}Low>=60ProBaptist Saint Anthony'S HospitalComment on above:Result Comment: Reported eGFR is based on theCKD-EPI 2020 equation that doesnot use a race coefficient.Performed By: #### BMP ####[facility] ([facility])[address], [place] [address] VIRGlucose [Mass/Vol]286 mg/fOYwzv23-81GrcAvrvsaBlanchard Valley Health System Comment on above:Performed By: #### BMP ####[facility] ([facility])[address] [address] VIRPotassium [Moles/Vol]4.4 mmol/L Normal3.5-5.0Bl[facility] Valley Health SystemComment on above:Performed By: #### BMP ####[facility] ([facility])[address] [address] VIRSodium [Moles/Vol]138 mmol/PZuctgz349-070IobPbonmrBlanchard Valley Health System Comment on above:Performed By: #### BMP ####[facility] ([facility])[address] [address] VIRUrea nitrogen [Mass/Vol]33 mg/dL High5-27ProBaptist Saint Anthony'S HospitalComment on above:Performed By: #### BMP ####[facility] ([facility])[address] [address] VIRCBC WITH AUTO DIFFERENTIALon 57-87-6011TYOURWRLOBQ DIFFERENTIAL TYPE MANUAL DIFFERENTIALNormalProBaptist Saint Anthony'S HospitalComment on above:Order Comment: Abnormal CBC with auto diff reflexes to a manual diffResult Comment: This is an appended report. These results have been appended to a previously preliminary verified report.Performed By: #### CBCA ####[facility] ([facility])[address], [place] [address] VIRCELLAVISION ELLIPTOCYTES IN BLOOD BY LIGHT MICROSCOPY1+[facility] Comment on above:Order Comment: Abnormal CBC with auto diff reflexes to a manual diffResult Comment: This is an appended report. These results have been appended to a previously preliminary verified report.Performed By: #### CBCA ####[facility] ([facility])[address], [place] [address] VIRCELLAVISION EOSINOPHILS ABSOLUTE COUNT (10*3/UL) BY MANUAL COUNT0.4 10*3/uLNoOhio State Harding HospitalComment on above:Order Comment: Abnormal CBC with auto diff reflexes to a manual diffResult Comment: This is an appended report. These results have been appended to a previously preliminary verified report.Performed By: #### CBCA ####[facility] ([facility])[address], [place] [address] VIRCELLAVISION EOSINOPHILS PERCENT BY MANUAL COUNT7 %[facility] HospitalComment on above:Order Comment: Abnormal CBC with auto diff reflexes to a manual diffResult Comment: This is an appended report. These results have been appended to a previously preliminary verified report.Performed By: #### CBCA ####[facility] ([facility])[address], [place] [address] VIRCELLAVISION LYMPHOCYTES ABSOLUTE COUNT (10*3/UL) BY MANUAL COUNT1.7 10*3/uLNoOhio State Harding HospitalComment on above:Order Comment: Abnormal CBC with auto diff reflexes to a manual diffResult Comment: This is an appended report. These results have been appended to a previously preliminary verified report.Performed By: #### CBCA ####[facility] ([facility])[address], [place] [address] VIRCELLAVISION LYMPHOCYTES RELATIVE PERCENT BY MANUAL COUNT28 %Normal [facility] SystemComment on above:Order Comment: Abnormal CBC with auto diff reflexes to a manual diffResult Comment: This is an appended report. These results have been appended to a previously preliminary verified report. Performed By: #### CBCA ####[facility] ([facility])[address], [place] [address] VIRCELLAVISION MONOCYTES ABSOLUTE COUNT (10*3/UL) IN BLOOD BY MANUAL COUNT0.2 10*3/uLBerger Hospital Comment on above:Order Comment: Abnormal CBC with auto diff reflexes to a manual diffResult Comment: This is an appended report. These results have been appended to a previously preliminary verified report.Performed By: #### CBCA ####[facility] ([facility])[address], [place] [address] VIRCELLAVISION MONOCYTES RELATIVE PERCENT BY MANUAL COUNT4 %Normal [facility] SystemComment on above:Order Comment: Abnormal CBC with auto diff reflexes to a manual diffResult Comment: This is an appended report. These results have been appended to a previously preliminary verified report. Performed By: #### CBCA ####[facility] ([facility])[address], [place] [address] VIRCELLAVISION NEUTROPHILS ABSOLUTE COUNT BY MANUAL COUNT3.9 10*3/uLBerger HospitalComment on above:Order Comment: Abnormal CBC with auto diff reflexes to a manual diffResult Comment: This is an appended report. These results have been appended to a previously preliminary verified report.Performed By: #### CBCA ####[facility] ([facility])[address], [place] [address] VIRCELLAVISION NEUTROPHILS RELATIVE PERCENT BY MANUAL COUNT61 %NormalBlanchard Valley Health System Comment on above:Order Comment: Abnormal CBC with auto diff reflexes to a manual diffResult Comment: This is an appended report. These results have been appended to a previously preliminary verified report.Performed By: #### CBCA ####[facility] ([facility])[address] [facility] [address], [place] [address] VIRErythrocyte distribution width (RBC) [Ratio]17.9 %High11.5-15[facility] SystemComment on above:Order Comment: Abnormal CBC with auto diff reflexes to a manual diffPerformed By: #### CBCA ####[facility] ([facility])[address] [facility] [address], [place] [address] VIRHematocrit (Bld) [Volume fraction]30.5 %Eje20-07BzcTerqnwBlanchard Valley Health SystemComment on above:Order Comment: Abnormal CBC with auto diff reflexes to a manual diffPerformed By: #### CBCA ####[facility] ([facility])[address] [facility] [address], [place] [address] VIRHemoglobin (Bld) [Mass/Vol]10.0 g/dLLow11.7-15.5PMercy HealthComment on above:Order Comment: Abnormal CBC with auto diff reflexes to a manual diffPerformed By: #### CBCA ####[facility] ([facility])[address] [facility] [address], [place] [address] VIRMCH (RBC) [Entitic mass]28.5 kxRuzyhd44-20MzoLppvuaBlanchard Valley Health SystemComment on above:Order Comment: Abnormal CBC with auto diff reflexes to a manual diffPerformed By: #### CBCA ####[facility] ([facility])[address] [place] [address] VIRMCHC (RBC) [Mass/Vol]33.0 g/aSDzhmqo96-55KkhFyjiqtBlanchard Valley Health System Comment on above:Order Comment: Abnormal CBC with auto diff reflexes to a manual diffPerformed By: #### CBCA ####[facility] ([facility])[address] [facility] [address], [place] [address] VIRMCV (RBC) [Entitic vol]86 nMGbmfdv15-467 [facility] SystemComment on above:Order Comment: Abnormal CBC with auto diff reflexes to a manual diffPerformed By: #### CBCA ####[facility] ([facility])[address] [facility] [address] [address] VIRPlatelet mean volume (Bld) [Entitic vol]9.2 fLNormal7-12PPremier Health Atrium Medical Center on above:Order Comment: Abnormal CBC with auto diff reflexes to a manual diff Performed By: #### CBCA ####[facility] ([facility])[address] [facility], [place] [address] VIRPlatelets (Bld) [#/Vol]261 10*3/uLNormal 150-450ProBaptist Saint Anthony'S HospitalComfresenius [facility] at [facility] on above:Order Comment: Abnormal CBC with auto diff reflexes to a manual diffPerformed By: #### CBCA ####[facility] ([facility])[address] [facility] [address], [place] [address] VIR RBC COUNT3.52 X10E12/LLow3.8-5.2PMercy HealthComfresenius medical care at [facility] on above:Order Comment: Abnormal CBC with auto diff reflexes to a manual diffPerformed By: #### CBCA ####[facility] ([facility])[address] [facility] [address], [place] [address] VIRWBC (Bld) [#/Vol]6.2 10*3/uLNormal4-11[facility] SystemComfresenius medical [facility] at [facility] on above:Order Comment: Abnormal CBC with auto diff reflexes to a manual diffPerformed By: #### CBCA ####[facility] ([facility])[address] [facility] [address], [place] [address] VIRCBC WITH AUTO DIFFERENTIALon 28-07-5588NVTTAIKCX ABSOLUTE COUNT (10*3/UL) BY AUTOMATED COUNT0.1 10*3/uLNormal [facility] on above:Performed By: #### CBCA ####[facility] ([address], [id number] VIRBASOPHILS RELATIVE PERCENT BY AUTOMATED COUNT1.3 %NormalProBaptist Saint Anthony'S HospitalComment on above:Performed By: #### CBCA ####[facility] ([address], [id number] VIRCELLAVISION DIFFERENTIAL TYPE AUTOMATED DIFFERENTIALNormLakeHealth Beachwood Medical CenterComfresenius [facility] on above:Performed By: #### CBCA ####[facility] ([address], [id number] VIREosinophils (Bld) [#/Vol]0.6 10*3/uLNormalBlanchard Valley Health SystemComfresenius medical care [facility] on above:Performed By: #### CBCA ####[facility] ([address], [id number] VIREOSINOPHILS RELATIVE PERCENT BY AUTOMATED COUNT6.9 %NormalBlanchard Valley Health SystemComment on above:Performed By: #### CBCA ####[facility] ([address], [id number] VIRErythrocyte distribution width (RBC) [Ratio]17.5 %High11.5-15[facility] SystemComfresenius medical care at [facility] on above:Performed By: #### CBCA ####[facility] ([address], [id number] VIRHematocrit (Bld) [Volume fraction]27.7 %Lxq83-29 [facility] SystemComfresenius medical care at [facility] on above:Performed By: #### CBCA ####[facility] ([address], [id number] VIRHemoglobin (Bld) [Mass/Vol]9.3 g/dLLow11.7-15.5ProMedica Mercy Medical CenterComment on above: Performed By: #### CBCA ####[facility] ([address], [place] VIRLYMPHOCYTES ABSOLUTE COUNT (10*3/UL) BY AUTOMATED COUNT2.5 10*3/uLNoThe Memorial Hospital of Salem CountyBaptist Saint Anthony'S HospitalComment on above:Performed By: #### CBCA ####[facility] ([facility])[address] [place], [place] [address], [id number] VIRLYMPHOCYTES RELATIVE PERCENT BY AUTOMATED COUNT29.1 % NormalBlanchard Valley Health SystemComment on above:Performed By: #### CBCA ####[facility] ([address], [id number] VIRMCH (RBC) [Entitic mass]28.9 sfWavzyf97-89QsvZskzldBaptist Saint Anthony'S HospitalComment on above:Performed By: #### CBCA ####[facility] ([address], [id number] VIRMCHC (RBC) [Mass/Vol]33.7 g/dLNormal 32-36ProBaptist Saint Anthony'S HospitalComment on above:Performed By: #### CBCA ####[facility] ([address] [place] VIRMCV (RBC) [Entitic vol]86 fVNsvvzn88-435RblTgpqat Fremont HospitalComment on above:Performed By: #### CBCA ####[facility] ([address], [id number] VIRMONOCYTES ABSOLUTE COUNT (10*3/UL) BY AUTOMATED COUNT0.9 10*3/uLNormalBlanchard Valley Health SystemComment on above: Performed By: #### CBCA ####[facility] ([address], [id number] VIRMONOCYTES RELATIVE PERCENT BY AUTOMATED COUNT10.6 % NormalBlanchard Valley Health SystemComment on above:Performed By: #### CBCA ####[facility] ([address], [id number] VIRNEUTROPHILS ABSOLUTE COUNT BY AUTOMATED COUNT4.4 10*3/uLNormalProBaptist Saint Anthony'S HospitalComment on above:Performed By: #### CBCA ####[facility] ([address], [id number] VIRNEUTROPHILS RELATIVE PERCENT BY AUTOMATED COUNT52.1 %NormalProBaptist Saint Anthony'S HospitalComment on above:Performed By: #### CBCA ####[facility] ([address], [id number] VIRPlatelet mean volume (Bld) [Entitic vol]8.8 fLNormal7-12PMercy HealthComment on above:Performed By: #### CBCA ####[facility] ([address], [id number] VIRPlatelets (Bld) [#/Vol]274 10*3/wJKakvvf085-131KygGzgzfv [facility] HospitalComment on above:Performed By: #### CBCA ####[facility] ([address], [id number] VIRRBC COUNT3.22 X10E12/LLow3.8-5.2PMercy HealthComment on above:Performed By: #### CBCA ####[facility] ([address] [place] [address] VIRWBC (Bld) [#/Vol]8.5 10*3/uLNormal4-11ProBaptist Saint Anthony'S HospitalComment on above:Performed By: #### CBCA ####[facility] ([address], [id number] VIRCOMPREHENSIVE METABOLIC PANELon 17-67-3562Swyfywj [Mass/Vol]3.3 g/dLNormal3.2-5.3PMercy Health Comment on above:Performed By: #### CMP ####[facility] ([address] [place] [address] VIRALP [Catalytic activity/Vol]107 U/L Ydsrbx24-060JcrEgrdtgBaptist Saint Anthony'S HospitalComment on above:Performed By: #### CMP ####[facility] ([facility])[address], [place] [address] VIRALT [Catalytic activity/Vol]17 U/LNormal<=31PMercy Health Comment on above:Performed By: #### CMP ####[facility] ([facility])[address] [place] [address] VIRAnion gap [Moles/Vol]10 mmol/L Normal5-15ProBaptist Saint Anthony'S HospitalComment on above:Performed By: #### CMP ####[facility] ([facility], [place] [address] VIRAST [Catalytic activity/Vol]30 U/LNormal<=41[facility] Comment on above:Performed By: #### CMP ####[facility] ([facility] [place] [address] VIRBilirubin [Mass/Vol]0.4 mg/dLNormal 0.3-1.2PMercy HealthComment on above:Performed By: #### CMP ####[facility] ([place] [address], [place] [address] VIRCalcium [Mass/Vol]8.9 mg/dLNormal8.5-10.5PMercy Health Comment on above:Performed By: #### CMP ####[facility] ([facility] [place] [address] VIRChloride [Moles/Vol]101 mmol/L Fukyot81-446PesRvwramBaptist Saint Anthony'S HospitalComment on above:Performed By: #### CMP ####[facility] ([facility], [place] [address] VIRCO2 [Moles/Vol]26 mmol/OUutyud50-31BoqVjhrmk Mercy Medical CenterComment on above:Performed By: #### CMP ####[facility] ([address] [place] [address] VIRCreatinine [Mass/Vol]1.83 mg/dLHigh0.40-1.00 [facility] SystemComment on above:Result Comment: METHOD TRACEABLE TO IDMS STANDARDPerformed By: #### CMP ####[facility] ([address] [address] VIRGFR/1.73 sq M.predicted among non- blacks MDRD (S/P/Bld) [Vol rate/Area]28 mL/min/{1.73_m2}Low>=60ProBaptist Saint Anthony'S HospitalComment on above:Result Comment: eGFR not reported due to non-numeric value for Creatinine.Reported eGFR is based ontheCKD-EPI 2020 equation that doesnot use a race coefficient.Performed By: #### CMP ####[facility] ([address] [address] VIRGlucose [Mass/Vol]152 mg/rJOaiu72-92SoyNjxyxsBlanchard Valley Health SystemComment on above:Performed By: #### CMP ####[facility] ([address] [address] VIRPotassium [Moles/Vol]4.3 mmol/LNormal3.5-5.0[facility] Health SystemComment on above:Performed By: #### CMP ####[address] [address] VIRProtein [Mass/Vol]7.2 g/dLNormal6.0-8.0[facility] Health SystemComment on above: Performed By: #### CMP ####[address] [place] [address] VIRSodium [Moles/Vol]137 mmol/QVlhine156-004XmuBathtg [facility] HospitalComment on above:Performed By: #### CMP ####[facility] ([address] [place] [address] VIRUrea nitrogen [Mass/Vol]35 mg/dLHigh5-27ProBaptist Saint Anthony'S HospitalComment on above:Performed By: #### CMP ####[facility] ([address] [place] [address] VIRMAGNESIUMon 11-26-2946Qazvcphbp [Mass/Vol]1.8 mg/dL Normal1.8-2.6ProBaptist Saint Anthony'S HospitalComment on above:Performed By: #### MG ####[facility] ([address], [place] [address] VIRBEDSIDE GLUCOSEon 45-10-8792Wpibxin [Mass/Vol]228 mg/zUOlft85-54OiyBjbueeBlanchard Valley Health SystemComment on above:Performed By: #### BEDG ####[facility] ([address], [place] VIRGlucose [Mass/Vol] 331 mg/tCAbvy46-88MdmVjkyimBlanchard Valley Health SystemComment on above:Performed By: #### BEDG ####[facility] ([address] [place] [address] VIRGlucose [Mass/Vol]259 mg/sAWovs98-33YvdWpgqamBaptist Saint Anthony'S HospitalComment on above:Performed By: #### BEDG ####[facility] ([address], [place] VIRCBC WITH AUTO DIFFERENTIALon 06-93-5269WAYFZNQXS ABSOLUTE COUNT (10*3/UL) BY AUTOMATED COUNT0.1 10*3/uLNormal [facility] SystemComment on above:Performed By: #### CBCA ####[facility] ([address], [place] VIRBASOPHILS RELATIVE PERCENT BY AUTOMATED COUNT0.6 %NormalBlanchard Valley Health SystemComment on above:Performed By: #### CBCA ####[facility] ([address], [id number] VIREosinophils (Bld) [#/Vol]0.5 10*3/uL NormalBlanchard Valley Health SystemComment on above:Performed By: #### CBCA ####[facility] ([address], [id number] VIREOSINOPHILS RELATIVE PERCENT BY AUTOMATED COUNT6.2 %[facility]ger HospitalComment on above:Performed By: #### CBCA ####[facility] ([address], [id number] VIRErythrocyte distribution width (RBC) [Ratio]17.6 %High11.5-15[facility] Health SystemComment on above: Performed By: #### CBCA ####[facility] ([address], [id number] VIRHematocrit (Bld) [Volume fraction]28.8 %Naj88-23 [facility] SystemComment on above:Performed By: #### CBCA ####[facility] ([id number] VIRHemoglobin (Bld) [Mass/Vol]9.7 g/dLLow11.7-15.5ProMedica Mercy Medical CenterComment on above: Performed By: #### CBCA ####[facility] ([address], [id number] VIRLYMPHOCYTES ABSOLUTE COUNT (10*3/UL) BY AUTOMATED COUNT2.3 10*3/uLNormalBlanchard Valley Health SystemComment on above:Performed By: #### CBCA ####[facility] ([address], [id number] VIRLYMPHOCYTES RELATIVE PERCENT BY AUTOMATED COUNT27.4 % NormalBlanchard Valley Health SystemComment on above:Performed By: #### CBCA ####[facility] ([facility])[address] [place] [address] AVE.[place], [id number] VIRMCH (RBC) [Entitic mass]28.5 qbWwjfuf22-28OzaYljqdmBaptist Saint Anthony'S HospitalComment on above:Performed By: #### CBCA ####[facility] ([facility])[address] [place] [address] AVE.[place], [id number] VIRMCHC (RBC) [Mass/Vol]33.6 g/dLNormal 32-36ProBaptist Saint Anthony'S HospitalComment on above:Performed By: #### CBCA ####[facility] ([address], [id number] VIRMCV (RBC) [Entitic vol]84.9 pDFhxysp69-988IjcDqmzfv [facility] HospitalComment on above:Performed By: #### CBCA ####[facility] ([address], [id number] VIRMONOCYTES ABSOLUTE COUNT (10*3/UL) BY AUTOMATED COUNT1.0 10*3/uLNoOhio State Harding HospitalComfresenius medical care at [facility] on above: Performed By: #### CBCA ####[facility] ([address], [id number] VIRMONOCYTES RELATIVE PERCENT BY AUTOMATED COUNT11.3 % NormalProBaptist Saint Anthony'S HospitalComment on above:Performed By: #### CBCA ####[facility] ([address], [id number] VIRNEUTROPHILS ABSOLUTE COUNT BY AUTOMATED COUNT4.6 10*3/uLNoOhio State Harding HospitalComment on above:Performed By: #### CBCA ####[facility])[address] [place], [place] [address], [id number] VIRNEUTROPHILS RELATIVE PERCENT BY AUTOMATED COUNT54.5 %NormalProBaptist Saint Anthony'S HospitalComment on above:Performed By: #### CBCA ####[facility] ([facility])[address] [place], [place] [address], [id number] VIRPlatelet mean volume (Bld) [Entitic vol]8.2 fLNormal7-12PMercy HealthComment on above:Performed By: #### CBCA ####[facility] ([address], [id number] VIRPlatelets (Bld) [#/Vol]253 10*3/yJIjfvir765-547TpaXvhllh [facility] HospitalComment on above:Performed By: #### CBCA ####[facility] ([address], [id number] VIRRBC COUNT3.40 X10E12/LLow3.8-5.2PMercy HealthComment on above:Performed By: #### CBCA ####[facility] ([address] [place] [address] VIRWBC (Bld) [#/Vol]8.5 10*3/uLNormal4-11ProBaptist Saint Anthony'S HospitalComment on above:Performed By: #### CBCA ####[facility] ([address], [id number] VIRCK TOTALon 84-94-0696XMK988 U/LHigh 24-170ProBaptist Saint Anthony'S HospitalComment on above:Performed By: #### CPK ####[facility] ([facility])[address] [place], [place] [address], [place] [address] VIRCOMPREHENSIVE METABOLIC PANELon 71-92-0148Ummrrcs [Mass/Vol]3.5 g/dL Normal3.2-5.3ProMedica Effingham HospitalComment on above:Performed By: #### CMP ####[facility] ([address], [place] [address] VIRALP [Catalytic activity/Vol]110 U/ESowmgo00-971BxeOnfbvcBaptist Saint Anthony'S HospitalComment on above:Performed By: #### CMP ####[facility] ([address] [place] [address] VIRALT [Catalytic activity/Vol]16 U/LNormal<=31PMercy HealthComment on above: Performed By: #### CMP ####[facility] ([address] [place] [address] VIRAnion gap [Moles/Vol]10 mmol/LNormal5-15ProBaptist Saint Anthony'S HospitalComment on above:Performed By: #### CMP ####[facility] ([address] [place] [address] VIRAST [Catalytic activity/Vol]25 U/LNormal<=41ProBaptist Saint Anthony'S HospitalComment on above: Performed By: #### CMP ####[facility] ([address] [place] [address] VIRBilirubin [Mass/Vol]0.4 mg/dLNormal0.3-1.2 [facility] SystemComment on above:Performed By: #### CMP ####[facility] ([address] [place] [address] VIRCalcium [Mass/Vol]9.2 mg/dLNormal8.5-10.5PChildren's Hospital Colorado HospitalComment on above: Performed By: #### CMP ####[facility] ([address] [place] [address] VIRChloride [Moles/Vol]99 mmol/GTldmxd04-826NrmCaipij [facility] HospitalComment on above:Performed By: #### CMP ####[facility] ([address] [place] [address] VIRCO2 [Moles/Vol]26 mmol/QGgjlvw57-86AbgRtnxdd [facility] HospitalComment on above:Performed By: #### CMP ####[facility] ([address] [place] [address] VIRCreatinine [Mass/Vol]1.80 mg/dLHigh0.40-1.00ProBaptist Saint Anthony'S Hospital Comment on above:Result Comment: METHOD TRACEABLE TO IDMS STANDARDPerformed By: #### CMP ####[facility] ([address] [address] VIRGFR/1.73 sq M.predicted among non-blacks MDRD (S/P/Bld) [Vol rate/Area]28 mL/min/{1.73_m2}Low>=60ProBaptist Saint Anthony'S HospitalComment on above:Result Comment: Reported eGFR is based on theCKD-EPI 2020 equation that doesnot use a race coefficient.Performed By: #### CMP ####[facility] ([address] [place] [address] VIRGlucose [Mass/Vol]145 mg/mYDjjq36-40OvdDaxsobBaptist Saint Anthony'S HospitalComment on above:Performed By: #### CMP ####[facility] ([address] [place] [address] VIRPotassium [Moles/Vol]3.8 mmol/LNormal3.5-5.0ProBaptist Saint Anthony'S HospitalComment on above:Performed By: #### CMP ####[facility] ([address] [address] VIRProtein [Mass/Vol]7.6 g/dLNormal6.0-8.0ProBaptist Saint Anthony'S HospitalComment on above: Performed By: #### CMP ####[facility] ([address] [address] VIRSodium [Moles/Vol]135 mmol/KMbxakf245-913XedGcssss [facility] HospitalComment on above:Performed By: #### CMP ####[facility] ([address] [place] [address] VIRUrea nitrogen [Mass/Vol]27 mg/dLNormal5-27ProBaptist Saint Anthony'S HospitalComment on above:Performed By: #### CMP ####[facility] ([address] [place] [address] VIRMAGNESIUMon 38-28-1595Kxjewufyh [Mass/Vol]1.7 mg/dLLow 1.8-2.6ProBaptist Saint Anthony'S HospitalComment on above:Performed By: #### MG ####[facility] ([address], [place] [address] VIRBEDSIDE GLUCOSEon 44-83-0024Zsplkna [Mass/Vol]216 mg/hPCbln94-84WraPsukdzBaptist Saint Anthony'S HospitalComment on above:Performed By: #### BEDG ####[facility] ([address], [place] VIRGlucose [Mass/Vol] 170 mg/hOPmbr34-50XscUodireBaptist Saint Anthony'S HospitalComment on above:Performed By: #### BEDG ####[facility] ([address] [place] [address] VIRGlucose [Mass/Vol]278 mg/dDTbuf10-23VklFpzfbcBaptist Saint Anthony'S HospitalComment on above:Performed By: #### BEDG ####[facility] ([address], [place] VIRCBC WITH AUTO DIFFERENTIALon 53-02-9891BONXZVNHO ABSOLUTE COUNT (10*3/UL) BY AUTOMATED COUNT0.0 10*3/uLNormal [facility] SystemComment on above:Performed By: #### CBCA ####[facility] ([address], [id number] VIRBASOPHILS RELATIVE PERCENT BY AUTOMATED COUNT0.5 %NormalBlanchard Valley Health SystemComment on above:Performed By: #### CBCA ####[facility] ([address], [place] VIRCELLAVISION DIFFERENTIAL TYPE AUTOMATED DIFFERENTIALNoOhio State Harding HospitalComment on above:Performed By: #### CBCA ####[facility] ([address], [place] VIREosinophils (Bld) [#/Vol]0.5 10*3/uLNormLakeHealth Beachwood Medical CenterComment on above:Performed By: #### CBCA ####[facility] ([address], [id number] VIREOSINOPHILS RELATIVE PERCENT BY AUTOMATED COUNT5.5 %NormalBlanchard Valley Health SystemComment on above:Performed By: #### CBCA ####[facility] ([address], [id number] VIRErythrocyte distribution width (RBC) [Ratio]17.8 %High11.5-15[facility] Health SystemComment on above:Performed By: #### CBCA ####[facility] ([address] [id number] VIRHematocrit (Bld) [Volume fraction]29.6 %Mkk35-16 [facility] SystemComment on above:Performed By: #### CBCA ####[facility] ([address], [id number] VIRHemoglobin (Bld) [Mass/Vol]9.7 g/dLLow11.7-15.5ProMedMenlo Park VA HospitalComment on above: Performed By: #### CBCA ####[facility] ([facility])[address] [place] [address] AVE.[place], [id number] VIRLYMPHOCYTES ABSOLUTE COUNT (10*3/UL) BY AUTOMATED COUNT1.6 10*3/uLNoOhio State Harding HospitalComment on above:Performed By: #### CBCA ####[facility] ([facility])[address] [place], [place] [address], [id number] VIRLYMPHOCYTES RELATIVE PERCENT BY AUTOMATED COUNT17.7 % NormalBlanchard Valley Health SystemComment on above:Performed By: #### CBCA ####[facility] ([address], [id number] VIRMCH (RBC) [Entitic mass]28.4 ncStoylr69-38BjqZvbyikBaptist Saint Anthony'S HospitalComment on above:Performed By: #### CBCA ####[facility] ([address], [id number] VIRMCHC (RBC) [Mass/Vol]32.9 g/dLNormal 32-36ProBaptist Saint Anthony'S HospitalComment on above:Performed By: #### CBCA ####[facility] ([facility])[address] [place] [address] [address]VE.[place], [id number] VIRMCV (RBC) [Entitic vol]86 dZCnhtds72-793EmwYyzvsq [facility] HospitalComment on above:Performed By: #### CBCA ####[facility] ([facility])[address] [place] [address] [place], [id number] VIRMONOCYTES ABSOLUTE COUNT (10*3/UL) BY AUTOMATED COUNT0.9 10*3/uLNoOhio State Harding HospitalComfresenius medical care [facility] on above: Performed By: #### CBCA ####[facility] ([address], [id number] VIRMONOCYTES RELATIVE PERCENT BY AUTOMATED COUNT10.6 % NormalBlanchard Valley Health SystemComment on above:Performed By: #### CBCA ####[facility] ([facility])[address] [place], [place] [address] [address], [id number] VIRNEUTROPHILS ABSOLUTE COUNT BY AUTOMATED COUNT5.8 10*3/uLNormalProBaptist Saint Anthony'S HospitalComfresenius [facility] on above:Performed By: #### CBCA ####[facility] ([address], [id number] VIRNEUTROPHILS RELATIVE PERCENT BY AUTOMATED COUNT65.7 %NormalBlanchard Valley Health SystemComment on above:Performed By: #### CBCA ####[facility] ([address], [id number] VIRPlatelet mean volume (Bld) [Entitic vol]8.2 fLNormal7-12PMercy HealthComment on above:Performed By: #### CBCA ####[facility] ([address], [id number] VIRPlatelets (Bld) [#/Vol]280 10*3/zEUtourf547-444IsqOsqmqbBlanchard Valley Health SystemComment on above:Performed By: #### CBCA ####[facility] ([facility])[address] [place] [address] [address], [id number] VIRRBC COUNT3.44 X10E12/LLow3.8-5.2PMercy HealthComment on above:Performed By: #### CBCA ####[facility] ([facility])[address] [place] [address] [place] [address] VIRWBC (Bld) [#/Vol]8.8 10*3/uLNormal4-11ProBaptist Saint Anthony'S HospitalComfresenius medical care [facility] on above:Performed By: #### CBCA ####[facility] ([facility])[address] [place], [place] [address] [address], [id number] VIRCOMPREHENSIVE METABOLIC PANELon [id number] [Mass/Vol]3.5 g/dLNormal3.2-5.3PMercy Health Comment on above:Performed By: #### CMP ####[facility] ([address] [place] [address] VIRALP [Catalytic activity/Vol]119 U/L Aamqfy91-435IbmMpeqncBaptist Saint Anthony'S HospitalComment on above:Performed By: #### CMP ####[facility] ([address] [place] [address] VIRALT [Catalytic activity/Vol]17 U/LNormal<=31PMercy Health Comment on above:Performed By: #### CMP ####[facility] ([address] [facility] [place] [address] VIRAnion gap [Moles/Vol]12 mmol/L Normal5-15ProBaptist Saint Anthony'S HospitalComment on above:Performed By: #### CMP ####[facility] ([address] [address] VIRAST [Catalytic activity/Vol]23 U/LNormal<=41[facility] Comment on above:Performed By: #### CMP ####[facility] ([address] [facility] [place] [address] VIRBilirubin [Mass/Vol]0.6 mg/dLNormal 0.3-1.2PMercy HealthComment on above:Performed By: #### CMP ####[facility] ([address], [place] [address] VIRCalcium [Mass/Vol]9.4 mg/dLNormal8.5-10.5PMercy Health Comment on above:Performed By: #### CMP ####[facility] ([address] [place] [address] VIRChloride [Moles/Vol]97 mmol/LLow 98-109ProBaptist Saint Anthony'S HospitalComment on above:Performed By: #### CMP ####[facility] ([facility])[address] [place] [address].[place], [place] [address] VIRCO2 [Moles/Vol]25 mmol/DReowko03-41NsmQgnaqq [facility] HospitalComment on above:Performed By: #### CMP ####[facility] ([facility])[address] [place] [address] VIRCreatinine [Mass/Vol]1.53 mg/dLHigh0.40-1.00 [facility] SystemComment on above:Result Comment: METHOD TRACEABLE TO IDMS STANDARDPerformed By: #### CMP ####[facility] ([address] [address] VIRGFR/1.73 sq M.predicted among non- blacks MDRD (S/P/Bld) [Vol rate/Area]35 mL/min/{1.73_m2}Low>=60ProBaptist Saint Anthony'S HospitalComment on above:Result Comment: eGFR not reported due to non-numeric value for Creatinine.Reported eGFR is based ontheCKD-EPI 2020 equation that doesnot use a race coefficient.Performed By: #### CMP ####[facility] ([address] [address] VIRGlucose [Mass/Vol]153 mg/cBLcnq99-15ZmaMfyaavBaptist Saint Anthony'S HospitalComment on above:Performed By: #### CMP ####[facility] ([address] [address] VIRPotassium [Moles/Vol]3.9 mmol/LNormal3.5-5.0[facility] SystemComment on above:Performed By: #### CMP ####[facility] ([facility])[address] [place] [address] VIRProtein [Mass/Vol]7.9 g/dLNormal6.0-8.0[facility] SystemComment on above: Performed By: #### CMP ####[facility] ([facility])[address] [place] [address] [place] [address] VIRSodium [Moles/Vol]134 mmol/WQmcqcy307-124VecTcvvjg [facility] HospitalComment on above:Performed By: #### CMP ####[facility] ([address] [place] [address] VIRUrea nitrogen [Mass/Vol]24 mg/dLNormal5-27ProBaptist Saint Anthony'S HospitalComment on above:Performed By: #### CMP ####[facility] ([address] [place] [address] VIRMAGNESIUMon 12-28-2979Ddvqtbfyl [Mass/Vol]1.8 mg/dL Normal1.8-2.6ProBaptist Saint Anthony'S HospitalComment on above:Performed By: #### MG ####[facility] ([address], [place] [address] TJN90et [id number]'s daughter called to cancel upcoming appointment with Cliff on 03/19/25 as patient is currently hospitalized. Daughter stated she will reschedule when patient is discharged and back at SNF.[facility] 36Spoke with Raina at [facility] infusion. It is [...] Will follow Er visit to determine pt disposition.[facility] Community HospitalBASIC METABOLIC PANELon 91-82-7626Yhwbd gap [Moles/Vol]9 mmol/L Normal5-15ProBaptist Saint Anthony'S HospitalComment on above:Performed By: #### BMP ####[facility] ([address], [place] [address] VIRCalcium [Mass/Vol]9.6 mg/dLNormal8.5-10.5PMercy Health Comment on above:Performed By: #### BMP ####[facility] ([address] [place] [address] VIRChloride [Moles/Vol]102 mmol/L Uscoop30-355EatIjuwpeBaptist Saint Anthony'S HospitalComment on above:Performed By: #### BMP ####[facility] ([address], [place] [address] VIRCO2 [Moles/Vol]27 mmol/JZlptqn51-81SyoAesgpbMercy HealthComment on above:Performed By: #### BMP ####[address] [address] VIRCreatinine [Mass/Vol]1.59 mg/dLHigh0.40-1.00 [facility] SystemComment on above:Result Comment: METHOD TRACEABLE TO IDMS STANDARDPerformed By: #### BMP ####[facility] ([address] [address] VIRGFR/1.73 sq M.predicted among non- blacks MDRD (S/P/Bld) [Vol rate/Area]33 mL/min/{1.73_m2}Low>=60ProBaptist Saint Anthony'S HospitalComment on above:Result Comment: eGFR not reported due to non-numeric value for Creatinine.Reported eGFR is based ontheCKD-EPI 2021 equation that doesnot use a race coefficient.Performed By: #### BMP ####[facility] ([address] [place] [address] VIRGlucose [Mass/Vol]179 mg/xPVmxv08-73ZfcDqvabyBaptist Saint Anthony'S HospitalComment on above:Performed By: #### BMP ####[facility] ([address] [address] VIRPotassium [Moles/Vol]4.6 mmol/LNormal3.5-5.0ProBaptist Saint Anthony'S HospitalComment on above:Performed By: #### BMP ####[facility] ([address] [place] [address] VIRSodium [Moles/Vol]138 mmol/ACrrikr393-085CerTpnwag [facility] HospitalComment on above: Performed By: #### BMP ####[facility] ([address] [place] [address] VIRUrea nitrogen [Mass/Vol]25 mg/dLNoal5-27 [facility] SystemComment on above:Performed By: #### BMP ####[facility] ([address] [place] [address] VIRBEDSIDE GLUCOSEon 74-10-5736Vdybvkb [Mass/Vol]228 mg/wTBprm20-96KzuJndgkgBlanchard Valley Health SystemComment on above:Performed By: #### BEDG ####[facility] ([address] [id number] VIRGlucose [Mass/Vol]160 mg/dL Cibz87-29OxnQfhlwwBlanchard Valley Health SystemComment on above:Performed By: #### BEDG ####[facility] ([address] [id number] VIRCBC WITH AUTO DIFFERENTIALon 31-11-5270DYCYBAKVW ABSOLUTE COUNT (10*3/UL) BY AUTOMATED COUNT0.1 10*3/uLNoalBlanchard Valley Health SystemComment on above: Performed By: #### CBCA ####[facility] ([address] [id number] VIRBASOPHILS RELATIVE PERCENT BY AUTOMATED COUNT0.6 % NormalProBaptist Saint Anthony'S HospitalComment on above:Performed By: #### CBCA ####[facility] ([address], [place] VIRCELLAVISION DIFFERENTIAL TYPEAUTOMATED DIFFERENTIALBerger HospitalComment on above:Performed By: #### CBCA ####[facility] ([facility])[address] [place] [address].[place], [id number] VIREosinophils (Bld) [#/Vol] 0.2 10*3/uLNoOhio State Harding HospitalComment on above:Performed By: #### CBCA ####[facility] ([address] [place] [address] VIREOSINOPHILS RELATIVE PERCENT BY AUTOMATED COUNT2.4 %NormalBlanchard Valley Health SystemComment on above:Performed By: #### CBCA ####[facility] ([address], [id number] VIRErythrocyte distribution width (RBC) [Ratio]18.0 %High11.5-15[facility] Comment on above:Performed By: #### CBCA ####[facility] ([address], [id number] VIRHematocrit (Bld) [Volume fraction] 29.4 %Cjs79-49AlvUmgpfeBlanchard Valley Health SystemComment on above:Performed By: #### CBCA ####[facility] ([address], [place] VIRHemoglobin (Bld) [Mass/Vol]9.7 g/dLLow11.7-15.5PMercy Health Comment on above:Performed By: #### CBCA ####[facility] ([address], [id number] VIRLYMPHOCYTES ABSOLUTE COUNT (10*3/UL) BY AUTOMATED COUNT1.2 10*3/uLNoOhio State Harding HospitalComment on above:Performed By: #### CBCA ####[facility] ([facility])[id number] VIRLYMPHOCYTES RELATIVE PERCENT BY AUTOMATED COUNT15.2 %NormalBlanchard Valley Health SystemComment on above:Performed By: #### CBCA ####[facility] ([facility])[address] VIRMCH (RBC) [Entitic mass]28.2 veJpqeop88-35VbjHuognw [facility] HospitalComment on above:Performed By: #### CBCA ####[facility] ([facility])[address] [place], [place] [address]T [address]VE.[place], [id number] VIRMCHC (RBC) [Mass/Vol]32.9 g/qMJggmcl98-52NntThakbgBaptist Saint Anthony'S HospitalComment on above: Performed By: #### CBCA ####[facility] ([address], [place] VIRMCV (RBC) [Entitic vol]86 vPUfjigr09-063HutZnechh [facility] HospitalComment on above:Performed By: #### CBCA ####[facility] ([facility])[address] [place], [place] [address] VIRMONOCYTES ABSOLUTE COUNT (10*3/UL) BY AUTOMATED COUNT0.7 10*3/uLTriHealth on above:Performed By: #### CBCA ####[facility] ([facility])[address] [place], [place] [address], [id number] VIRMONOCYTES RELATIVE PERCENT BY AUTOMATED COUNT8.5 %NormalBlanchard Valley Health SystemComment on above:Performed By: #### CBCA ####[facility] ([facility])[address] [place], [place] [address], [id number] VIRNEUTROPHILS ABSOLUTE COUNT BY AUTOMATED COUNT5.9 10*3/uL NormalBlanchard Valley Health SystemComment on above:Performed By: #### CBCA ####[facility] ([place] [address], [id number] VIRNEUTROPHILS RELATIVE PERCENT BY AUTOMATED COUNT73.3 %NormalProBaptist Saint Anthony'S HospitalComment on above:Performed By: #### CBCA ####[facility] ([facility])[address] [place], [place] [address], [id number] VIRPlatelet mean volume (Bld) [Entitic vol]7.8 fLNormal7-12PMercy HealthComment on above: Performed By: #### CBCA ####[facility] ([address], [id number] VIRPlatelets (Bld) [#/Vol]275 10*3/cIVgxkjv744-937 [facility] SystemComment on above:Performed By: #### CBCA ####[facility] ([address], [id number] VIRRBC COUNT 3.43 X10E12/LLow3.8-5.2PMercy HealthComment on above:Performed By: #### CBCA ####[facility] ([address], [place] VIRWBC (Bld) [#/Vol]8.1 10*3/uLNormal4-11ProBaptist Saint Anthony'S HospitalComment on above:Performed By: #### CBCA ####[facility] ([address], [id number] VIRMAGNESIUMon 03-16-2025 Magnesium [Mass/Vol]1.9 mg/dLNormal1.8-2.6ProBaptist Saint Anthony'S HospitalComment on above:Performed By: #### MG ####[facility] ([facility])[address] [place], [place] [address] [place] [address] VIRTROP I, HIGH SENSITIVITY 1 HOURon 03-16-2025 TROPONIN I, HIGH SENSITIVITY9 ng/LNormal<16ProBaptist Saint Anthony'S HospitalComment on above:Performed By: #### TNIHS1 ####[facility] ([address] [place] [address] VIRTROPONIN I, HIGH SENSITIVITY 0 HOURon 92-85-1251DTBXXVHG I, HIGH SENSITIVITY9 ng/LNormal<16[facility] Comment on above:Performed By: #### TNIHS0 ####[facility] ([facility])[address] [place] [address] [place] [address] VIRTelephoneon 03-16-2025 [id number] LuizRadhadanielle Casas 1945 F Date Provider Department Center 03/16/20252046-[facility] INF Juan Antonio Heal Family History Problem Relation Age of Onset Diabetes Mother Hypertension Father Coronary artery disease Father Family Status - Relation Status Age at Mother FatherNormalUniversCleveland ClinicXR CHEST 1 VWon 00-33-2885ZO CHEST 1 VWNoOhio State Harding Hospital36on 24-05-128180Yyoq from daughter stating her mother was having one of her [...] Messages left for Benedicto and Raina at [facility] to pose this question.NormalUnSelect Medical OhioHealth Rehabilitation Hospital - DublinBASIC METABOLIC PANELon 06-39-4562Zvnzf gap [Moles/Vol]10 mmol/LNormal5-15[facility] Comment on above:Performed By: #### BMP ####[facility] ([address] [place] [address] VIRCalcium [Mass/Vol]9.0 mg/dLNormal 8.5-10.5ProMedica Mercy Medical CenterComment on above:Performed By: #### BMP ####[facility] ([address], [place] [address] VIRChloride [Moles/Vol]100 mmol/EYtytcz35-493EltMqhfasBaptist Saint Anthony'S Hospital Comment on above:Performed By: #### BMP ####[facility] ([address] [place] [address] VIRCO2 [Moles/Vol]27 mmol/KHsoxdx34-47 ProMKaiser Permanente Medical CenterComment on above:Performed By: #### BMP ####[facility] ([address] [address] VIR Creatinine [Mass/Vol]1.85 mg/dLHigh0.40-1.00[facility] Health SystemComment on above:Result Comment: METHOD TRACEABLE TO IDDE STANDARDPerformed By: #### BMP ####[facility] ([address] [address] VIRGFR/1.73 sq M.predicted among non-blacks MDRD (S/P/Bld) [Vol rate/Area] 28 mL/min/{1.73_m2}Low>=60ProBaptist Saint Anthony'S HospitalComment on above:Result Comment: eGFR not reported due to non-numeric value for Creatinine.Reported eGFR is based ontheCKD-EPI 2020 equation that doesnot use a race coefficient. Performed By: #### BMP ####[facility] ([address] [place] [address] VIRGlucose [Mass/Vol]222 mg/yYJryz57-75FxdYntrotBaptist Saint Anthony'S HospitalComment on above:Performed By: #### BMP ####[facility] ([address] [address] VIRPotassium [Moles/Vol]4.3 mmol/LNormal3.5-5.0ProBaptist Saint Anthony'S HospitalComment on above: Performed By: #### BMP ####[facility] ([address] [address] VIRSodium [Moles/Vol]137 mmol/RKrtafl606-356LtcYonhfo [facility] HospitalComment on above:Performed By: #### BMP ####[facility] ([address] [place] [address] VIRUrea nitrogen [Mass/Vol]33 mg/dLHigh5-27ProBaptist Saint Anthony'S HospitalComfresenius medical care at [facility] [place] on above:Performed By: #### BMP ####[facility] ([address] [place] [address] VIRCBC WITH AUTO DIFFERENTIALon 02-90-5991UTEWPFRFR ABSOLUTE COUNT (10*3/UL) BY AUTOMATED COUNT0.1 10*3/uLNoOhio State Harding HospitalComfresenius medical [facility] [place] on above:Order Comment: Abnormal CBC with auto diff reflexes to a manual diffPerformed By: #### CBCA ####[facility] ([address] [id number] VIRBASOPHILS RELATIVE PERCENT BY AUTOMATED COUNT1.0 %NormalBlanchard Valley Health SystemComfresenius medical [facility] [place] on above:Order Comment: Abnormal CBC with auto diff reflexes to a manual diffPerformed By: #### CBCA ####[facility] ([address], [place] VIRCELLAVISION DIFFERENTIAL TYPEAUTOMATED DIFFERENTIALNoOhio State Harding HospitalComfresenius [facility] [place] on above:Order Comment: Abnormal CBC with auto diff reflexes to a manual diffPerformed By: #### CBCA ####[facility] ([address], [id number] VIREosinophils (Bld) [#/Vol] 0.4 10*3/uLNoOhio State Harding HospitalComfresenius [facility] [place] on above:Order Comment: Abnormal CBC with auto diff reflexes to a manual diffPerformed By: #### CBCA ####[facility] ([address], [id number] VIREOSINOPHILS RELATIVE PERCENT BY AUTOMATED COUNT6.3 %NormalWyandot Memorial Hospital on above:Order Comment: Abnormal CBC with auto diff reflexes to a manual diffPerformed By: #### CBCA ####[facility] ([address], [id number] VIRErythrocyte distribution width (RBC) [Ratio]18.5 %High11.5-15ProBaptist Saint Anthony'S HospitalComfresenius [facility] [place] on above:Order Comment: Abnormal CBC with auto diff reflexes to a manual diffPerformed By: #### CBCA ####[facility] ([address], [id number] VIRHematocrit (Bld) [Volume fraction]28.2 %Elu58-71HdyOxtkfrBlanchard Valley Health SystemComfresenius [facility] [place] on above:Order Comment: Abnormal CBC with auto diff reflexes to a manual diffPerformed By: #### CBCA ####[facility] ([address], [id number] VIRHemoglobin (Bld) [Mass/Vol]9.3 g/dL Low11.7-15.5PMercy HealthComfresenius medical [facility] [place] on above:Order Comment: Abnormal CBC with auto diff reflexes to a manual diffPerformed By: #### CBCA ####[facility] ([address], [id number] VIRLYMPHOCYTES ABSOLUTE COUNT (10*3/UL) BY AUTOMATED COUNT1.6 10*3/uLNormal [facility] on above:Order Comment: Abnormal CBC with auto diff reflexes to a manual diffPerformed By: #### CBCA ####[facility] ([address], [id number] VIRLYMPHOCYTES RELATIVE PERCENT BY AUTOMATED COUNT23.6 %NormalBlanchard Valley Health SystemComfresenius medical [facility] [place] on above:Order Comment: Abnormal CBC with auto diff reflexes to a manual diff Performed By: #### CBCA ####[facility] ([address], [id number] VIRMCH (RBC) [Entitic mass]28.4 erZpspnb94-34ZwdNdokmwBlanchard Valley Health SystemComfresenius [facility] [place] on above:Order Comment: Abnormal CBC with auto diff reflexes to a manual diffPerformed By: #### CBCA ####[facility] ([facility])[address] [place] [address] AVE.[place], [id number] VIRMCHC (RBC) [Mass/Vol]32.9 g/iNRtawxr86-96JpuDpuyzjWyandot Memorial Hospital on above:Order Comment: Abnormal CBC with auto diff reflexes to a manual diffPerformed By: #### CBCA ####[facility] ([facility])[address] [place] [address] AVE.[place], [id number] VIRMCV (RBC) [Entitic vol]87 iCTgbzfy22-214GcrUrrekw [facility] HospitalComfresenius [facility] on above:Order Comment: Abnormal CBC with auto diff reflexes to a manual diff Performed By: #### CBCA ####[facility] ([facility])[address] [place] [address] AVE.[place], [id number] VIRMONOCYTES ABSOLUTE COUNT (10*3/UL) BY AUTOMATED COUNT0.7 10*3/uLNoMagruder Memorial Hospital on above:Order Comment: Abnormal CBC with auto diff reflexes to a manual diffPerformed By: #### CBCA ####[facility] ([address], [id number] VIRMONOCYTES RELATIVE PERCENT BY AUTOMATED COUNT10.1 %NormalProBaptist Saint Anthony'S HospitalComfresenius [facility] [place] on above:Order Comment: Abnormal CBC with auto diff reflexes to a manual diffPerformed By: #### CBCA ####[facility] ([facility])[address] [place] [address] AVE[address], [id number] VIRNEUTROPHILS ABSOLUTE COUNT BY AUTOMATED COUNT3.9 10*3/uLBerger HospitalComfresenius [facility] on above:Order Comment: Abnormal CBC with auto diff reflexes to a manual diffPerformed By: #### CBCA ####[facility] ([facility])[address] [place], [place] [address]E.[place] [address] VIRNEUTROPHILS RELATIVE PERCENT BY AUTOMATED COUNT59.0 %NormalWyandot Memorial Hospital on above:Order Comment: Abnormal CBC with auto diff reflexes to a manual diffPerformed By: #### CBCA ####[facility] ([address], [id number] VIRPlatelet mean volume (Bld) [Entitic vol]8.9 fLNormal7-12ProMedMenlo Park VA HospitalComfresenius [facility] on above:Order Comment: Abnormal CBC with auto diff reflexes to a manual diffPerformed By: #### CBCA ####[facility] ([facility])[address] [place], [place] [address]E.[place] [address] VIRPlatelets (Bld) [#/Vol]251 10*3/nLBazjmd792-217QbfJkyusk [facility] HospitalComfresenius [facility] [place] on above:Order Comment: Abnormal CBC with auto diff reflexes to a manual diffPerformed By: #### CBCA ####[facility] ([address], [id number] VIRRBC COUNT3.26 X10E12/LLow3.8-5.2 [facility] SystemComfresenius [facility] [place] on above:Order Comment: Abnormal CBC with auto diff reflexes to a manual diffPerformed By: #### CBCA ####[facility] ([address], [id number] VIRWBC (Bld) [#/Vol] 6.6 10*3/uLNormal4-11[facility] Health SystemComfresenius [facility] [place] on above:Order Comment: Abnormal CBC with auto diff reflexes to a manual diffPerformed By: #### CBCA ####[facility] ([facility])[address] [place] [address] AVE.[place], [id number] VIRCK TOTALon 72-21-7313EYG20 U/JSgjeij66-124JimKxdbmk Effingham HospitalComment on above:Performed By: #### CPK ####[facility] ([facility])[address] [place] [address] UDM46dc 62-59-237592Dzndqry labs are in media with the CK and CBC still pending with no results at this timeNormalUniversity of The Medical Center [facility]36on 73-58-406816Hgtk received. Confirmed orders for meds, labs ,Eots with S[facility]. Follow up appt scheduled.NormalTogus VA Medical Center36Call to Sonia at [facility] and confirmed antibiotic orders, weekly labs and EOTs. Follow up appt scheduled.[facility] HospitalCBC AND AUTO DIFFon 04-53-0289BZJUMJRZ BASOPHIL0.0 X10E9/LNormal0.0-0.2ProMedica Good Samaritan HospitalComment on above:Performed By: #### CBCA, CMP, , 2157-04 ####[facility] ([id number])[address], [address] [place] [address]URBFWBDL NEUTROPHIL3.4 X10E9/LNormal1.5-6.6ProGrand Lake Joint [facility] District [facility] Hospital Hospital Comment on above:Performed By: #### CBCA, CMP, , 2157-04 ####[facility] ([id number])[address], [place] [address] Basophils/100 WBC (Bld)0.6 %NormalProGrand Lake Joint Township District Memorial Hospital HospitalComment on above: Performed By: #### CBCA, CMP, 2157-04 ####[facility] ([id number])[address], [address] [place] [address]Bznwriwbrbb (Bld) [#/Vol] 0.3 10*3/uLNormal0.0-0.4ProSumma Health Akron CampusComment on above:Performed By: #### CBCA, CMP, , 2157-04 ####[facility] ([id number])[address], [address] [address]Tuefookieia/100 WBC (Bld) 4.3 %NormalProMedica Childers HospitalComment on above:Performed By: #### CBCA, CMP, , 2157-04 ####[facility] ([id number])[address], [address], [place] [address]Kfypmecmnwk distribution width (RBC) [Ratio]18.2 %High11.5-15.0ProMedica Childers HospitalComment on above:Performed By: #### CBCA, CMP, , 2157-04 ####[facility] ([id number])[address], [address], [place] [address]Afxikhbqhh (Bld) [Volume fraction]24.1 %Low 35-47ProMedica Childers HospitalComment on above:Performed By: #### CBCA, CMP, , 2157-04 ####[facility] ([id number])[address], [address], [place] [address]Snoxmzmufq (Bld) [Mass/Vol]7.9 g/dLLow11.7-15.5 Pro[facility]ica Childers HospitalComment on above:Performed By: #### CBCA, CMP, , 2157-04 ####[facility] ([id number])[address], [address], [place] [address]Eycbukrsyzc (Bld) [#/Vol]2.0 10*3/uLNormal1.0-3.5ProMedica Childers HospitalComment on above:Performed By: #### CBCA, CMP, , 2157-04 ####[facility] ([id number])[address], [address], [place] [address]Mchiaumxkgp/100 WBC (Bld)30.7 %NormalProMedica Childers HospitalComment on above:Performed By: #### CBCA, CMP, , 2157-04 ####[facility] ([id number])[address], [address] [place] [address]NYK (RBC) [Entitic mass]27.7 epPxyzkp17-87OlmRrsudx Childers HospitalComment on above:Performed By: #### CBCA, CMP, , 2157-04 ####[facility] ([id number])[address], [address] [place] [address] [address]LQIQ (RBC) [Mass/Vol]32.7 g/oEQhxiyo79-73IfcItaomh Childers HospitalComment on above:Performed By: #### CBCA, CMP, , 2157-04 ####[facility] ([id number])[address], [address] [place] [address] 88452JPI (RBC) [Entitic vol]85 lTOmbdqz34-176 [facility]ers HospitalComment on above:Performed By: #### CBCA, CMP, , 2157-04 ####[facility] ([id number])[address], [address] [place] [address] 18555Cqjszxqjz (Bld) [#/Vol]0.8 10*3/uLNormal0-0.9Pro[facility] Childers HospitalComment on above:Performed By: #### CBCA, CMP, , 2157-04 ####[facility] ([id number])[address] [address] [place] [address] 68591Xbsuqyniv/100 WBC (Bld)12.3 %NormalProMedica Childers HospitalComment on above:Performed By: #### CBCA, CMP, , 2157-04 ####[facility] ([id number])[address], [address] [place] [address] 45992Spjgmphsnfi/100 WBC (Bld)52.1 %NormalProPomerene Hospitalca Angel Fire HospitalComment on above:Performed By: #### CBCA, CMP, , 2157-04 ####[facility] ([id number])[address], [address], [place] [address]Layuazmp mean volume (Bld) [Entitic vol]7.9 fLNormal7-12[facility] HospitalComment on above:Performed By: #### CBCA, CMP, , 2157-04 ####[facility] ([id number])[address], [address], [place] [address]Oumzjqbuc (Bld) [#/Vol]334 10*3/yIEpyasr861-142 [facility] HospitalComment on above:Performed By: #### CBCA, CMP, , 2157-04 ####[facility] ([id number])[address], [address] [place] [address] 26745HJF COUNT2.84 X10E12/LLow3.80-5.20[facility] Comment on above:Performed By: #### CBCA, CMP, , 2157-04 ####[facility] ([id number])[address], [address] [place] [address] 08115PSK (Bld) [#/Vol]6.6 10*3/uLNormal4.0-11.0Pro[facility] HospitalComment on above: Performed By: #### CBCA, CMP, , 2157-04 ####[facility] ([id number])[address], [address] [place] [address] 26599AE [Catalytic activity/Vol] on 59-49-0440FER26 U/HYztjvk76-964ZkcUmzupf [facility] HospitalComment on above: Performed By: #### CBCA, CMP, , 2157-04 ####[facility] ([id number])[address], [address], [place] [address]DOICRKFYINJGM METABOLIC PANELon 03-03-1320Jntgmgj [Mass/Vol]3.3 g/dLNormal3.2-5.3[facility] HospitalComment on above:Performed By: #### CARMEN CMP, , 2157-04 ####[facility] ([id number])[address], [address], [place] [address]GUZ [Catalytic activity/Vol]90 U/RIzblou90-753JyfNxzwom [place] [facility] Comment on above:Performed By: #### CARMEN CMP, , 2157-04 ####[facility] ([id number])[address], [address], [place] [address]TGV [Catalytic activity/Vol]18 U/LNormal0-31[facility] HospitalComment on above:Performed By: #### CARMEN CMP, , 2157-04 ####[facility] ([id number])[address], [address], [place] [address]Caahc gap [Moles/Vol]6 mmol/LNormal5-15[facility] HospitalComment on above:Performed By: #### CARMEN CMP, , 2157-04 ####[facility] ([id number])[address], [address], [place] [address]QAE [Catalytic activity/Vol]17 U/LNormal0-41 [facility] HospitalComment on above:Performed By: #### CARMEN, CMP, , 2157-04 ####[facility] ([id number])[address], [address], [place] [address]Rfqyodjzq [Mass/Vol]0.3 mg/dLNormal0.3-1.2[facility] HospitalComment on above:Performed By: #### RUBEN MORALES, , 2157-04 ####[facility] ([id number])[address], [address], [place] [address]Aaukdan [Mass/Vol]8.5 mg/dLNormal8.5-10.5[facility] HospitalComment on above:Performed By: #### RUBEN MORALES, , 2157-04 ####[facility] ([id number])[address], [address] [address]Aplebsax [Moles/Vol]105 mmol/HJqrazq02-174VkbOqzmkp [place] HospitalComment on above: Performed By: #### RUBEN MORALES, , 2157-04 ####[facility] ([id number])[address], [address], [place] [address]AZ4 [Moles/Vol]28 mmol/L Nkobli21-56HyyBzvruw [place] HospitalComment on above:Performed By: #### RUBEN MORALES, , 2157-04 ####[facility] ([id number])[address], [address], [place] [address]Xhcqcjpfww [Mass/Vol]1.81 mg/dLHigh0.40-1.00 [facility] HospitalComment on above:Result Comment: METHOD TRACEABLE TO IDMS STANDARDPerformed By: #### RUBEN MORALES, , 2157-04 ####[facility] ([id number])[address], [address], [place] [address]CEM/1.73 sq M.predicted among non-blacks MDRD (S/P/Bld) [Vol rate/Area]28 mL/min/{1.73_m2} Low>59Pro[facility]iMer[facility] HospitalComment on above:Result Comment: Reported eGFR is based on theCKD-EPI 2020 equation that doesnot use a race coefficient.Performed By: #### RUBEN MORALES, , 2157-04 ####[facility] ([id number])[address], [address], [place] [address]Tkcgchf [Mass/Vol]113 mg/dL Qgef01-71KmwXoxxsj [facility]ers HospitalComment on above:Performed By: #### RUBEN MORALES, , 2157-04 ####[facility] ([id number])[address], [address], [place] [address]Tilxsxqbe [Moles/Vol]4.8 mmol/LNormal3.5-5.0[facility] HospitalComment on above:Performed By: #### RUBEN MORALES, , 2157-04 ####[facility] ([id number])[address], [address], [place] [address]Mancmgq [Mass/Vol]6.5 g/dLNormal6.0-8.0[facility] HospitalComment on above:Performed By: #### RUBEN MORALES, , 2157-04 ####[facility] ([id number])[address] [address], [place] [address]Wiirah [Moles/Vol]139 mmol/NBumirq301-373RxnRqgout [facility]ers HospitalComment on above: Performed By: #### RUBEN MORALES, , 2157-04 ####[facility] ([id number])[address], [address], [place] [address]Mccq nitrogen [Mass/Vol]28 mg/dLHigh5-27[facility] HospitalComment on above:Performed By: #### RUBEN MORALES, , 2157-04 ####[facility] ([id number])[address], [address], [place] [address]Ajnumuk Glucometer (BldC) [Mass/Vol]on 72-41-3894Oibpkla [Mass/Vol]266 mg/jESily37-13HviBzdhbi [place] HospitalGlucose [Mass/Vol]127 mg/bKCgxc00-46MtrLjypba [place] HospitalMAGNESIUMon 02-24-2025 Magnesium [Mass/Vol]2.2 mg/dLNormal1.8-2.6ProSumma Health [facility] CampusComment on above:Performed By: #### CBCA, CMP, 00344-1, 2157-6 ####[facility] ([id number])[address], [address] [place] [address]DNK AND AUTO DIFFon 31-22-4304Zrqu form neutrophils/100 WBC (Bld)1.1 %NormalProSumma Health Akron CampusComment on above:Performed By: #### CBCA, CMP, , 90175-9 ####[facility] ([id number])[address] [address] [place] [address] 25961Haxeniwjmbx (Bld) [#/Vol]0.3 10*3/uLNormal0.0-0.4[facility] Comment on above:Performed By: #### CBCA, CMP, , 98463-1 ####[facility] ([id number])[address], [address] [place] [address] 45005 Eosinophils/100 WBC (Bld)4.3 %NormalProSumma Health Akron CampusComment on above: Performed By: #### CBCA, CMP, , 29823-9 ####[facility] ([id number])[address], [address] [place] [address] 26461Jxuhqdsradu distribution width (RBC) [Ratio]17.8 %High11.5-15.0ProSumma Health Akron CampusComment on above: Performed By: #### CBCA, CMP, 84705-8, 80553-1 ####[facility] ([id number])[address], [address] [place] [address] 49868BVISWTIH5+AbnormalNONE [facility] HospitalComment on above:Performed By: #### CBCA, CMP, 17158-0, 36454-9 ####[facility] ([id number])[address], [address], [place] [address]Twqgqijgex (Bld) [Volume fraction]25.6 %Uos99-48MlfFhoges [place] HospitalComment on above:Performed By: #### CBCA, CMP, 62151-6, 88778-0 ####[facility] ([id number])[address], [address] [place] [address] 52809Wghhvnfcnm (Bld) [Mass/Vol]8.4 g/dLLow11.7-15.5PM[facility] Comment on above:Performed By: #### CBCA, CMP, , 88388-2 ####[facility] ([id number])[address] [address] [place] [address]99[address] Lymphocytes (Bld) [#/Vol]1.9 10*3/uLNormal1.0-3.5PMercy Health [facility] Comment on above:Performed By: #### CBCA, CMP, , 05100-4 ####[facility] ([id number])[address] [address] [place] [address] 97179 Lymphocytes/100 WBC (Bld)30.1 %NormalProGrand [facility] HospitalComment on above: Performed By: #### CBCA, CMP, , 58567-5 ####[facility] ([id number])[address] [address], [place] [address]TDB (RBC) [Entitic mass] 27.5 jzGwonxv61-13JhlIcfysx [place] HospitalComment on above:Performed By: #### CBCA, CMP, 28459-8, 31964-1 ####[facility] ([id number])[address], [address] [place] [address] 40899OYVA (RBC) [Mass/Vol]32.7 g/uDSqaeuv49-99 [facility] HospitalComment on above:Performed By: #### CBCA, CMP, 76109-6, 27914-3 ####[facility] ([id number])[address], [address] [place] [address] 05621YXB (RBC) [Entitic vol]84 uTLvwqlz30-939OrjTqdzds [facility]iders HospitalComment on above:Performed By: #### CBCA, CMP, 30890-5, 28172-9 ####[facility] ([id number])[address], [address] [place] [address] 77582Krftqiwihhcard/100 WBC (Bld)1.1 %NormalProMedica Childers HospitalComment on above:Performed By: #### CBCA, CMP, 15706-2, 06346-1 ####[facility] ([id number])[address], [address] [place] [address] 75768Ydrpjmhic (Bld) [#/Vol]0.8 10*3/uLNormal0-0.9[facility] HospitalComment on above:Performed By: #### CBCA, CMP, 69454-0, 98116-4 ####[facility] ([id number])[address], [address] [place] [address] 58477Psmwsbyrn/100 WBC (Bld)12.9 %NormalProMedica Childers HospitalComment on above:Performed By: #### CBCA, CMP, 79962-5, 92236-6 ####[facility] ([id number])[address], [address] [place] [address] 09968WGOSHLZVS5.1 %NormalProMedica Childers HospitalComment on above:Performed By: #### CBCA, CMP, 88812-4, 72661-6 ####[facility] ([id number])[address], [address], [place] [address]Ousmsunqohh (Bld) [#/Vol]3.3 10*3/uLNormal1.5-6.6ProPomerene Hospitalca [facility]ers HospitalComment on above: Performed By: #### CBCA, CMP, 16530-1, 88622-8 ####[facility] ([id number])[address], [address], [place] [address]ADTQJKOIK RBC2.2 /100 WBC High0.0-1.0ProPomerene Hospitalca Childers HospitalComment on above:Performed By: #### CBCA, CMP, 14815-0, 20326-8 ####[facility] ([id number])[address], [address], [place] [address]EZDETYRFL8+AbnormalNONEProMedica Angel Fire HospitalComment on above:Performed By: #### CBCA, CMP, 98159-8, 34218-1 ####[facility] ([id number])[address], [address] [place] [address] 72846Lufbhecj mean volume (Bld) [Entitic vol]8.0 fLNormal7-12[facility] HospitalComment on above:Performed By: #### CBCA, CMP, 15046-7, 77223-5 ####[facility] ([id number])[address], [address] [place] [address] 30704Ujkolijng (Bld) [#/Vol]353 10*3/oZQpcejy981-754RmaVaoacp [facility] Comment on above:Performed By: #### CBCA, CMP, 85862-7, 00115-3 ####[facility] ([id number])[address], [address], [place] [address] POLYCHROMASIA1+AbnormalNONEProMedica Childers HospitalComment on above:Performed By: #### CBCA, CMP, 24006-2, 35499-7 ####[facility] ([id number])[address], [address] [place] [address] 81293WWG COUNT3.04 X10E12/LLow 3.80-5.20[facility] HospitalComment on above:Performed By: #### CBCA, CMP, 67263-4, 06958-0 ####[facility] ([id number])[address], [address], [place] [address]NRG YCFVKNXKQO56.4 %NormalProSumma Health [facility] Campus Comment on above:Performed By: #### CBCA, CMP, 29160-3, 00692-6 ####[facility] ([id number])[address], [address] [place] [address] 70236EVM (Bld) [#/Vol]6.4 10*3/uLNormal4.0-11.0ProSumma Health [facility] CampusComment on above: Performed By: #### CBCA, CMP, 94501-8, 83508-3 ####[facility] ([id number])[address] [address] [place] [address] 25738EMWJRWUTFZEES METABOLIC PANELon 30-65-0069Dfngjma [Mass/Vol]3.2 g/dLNormal3.2-5.3PMercy Health Lorain HospitalComment on above:Performed By: #### CBCA, CMP, 67605-1, 97124-3 ####[facility] ([id number])[address], [address], [place] [address]TQJ [Catalytic activity/Vol]103 U/RBikhaj73-552AqxWtejamBlanchard Valley Health [facility] Comment on above:Performed By: #### CBCA, CMP, 60458-4, 62664-9 ####[facility] ([id number])[address] [address]JHA [Catalytic activity/Vol]20 U/LNormal0-31PMercy Health Lorain HospitalComment on above:Performed By: #### CBCA, CMP, 13185-7, 08397-3 ####[facility] ([id number])[address], [address], [place] [address]Opcbw gap [Moles/Vol]8 mmol/LNormal5-15[facility] HospitalComment on above:Performed By: #### CARMEN CMP, , 60836-2 ####[facility] ([id number])[address], [address], [place] [address]UYB [Catalytic activity/Vol]22 U/LNormal0-41[facility] HospitalComment on above:Performed By: #### CARMEN CMP, , 58833-1 ####[facility] ([id number])[address], [place] [address]Jpvzmoqdt [Mass/Vol]0.3 mg/dLNormal0.3-1.2[facility] HospitalComment on above:Performed By: #### CARMEN CMP, , 33133-6 ####[facility] ([id number])[address], [address], [place] [address]Pydackl [Mass/Vol]8.8 mg/dLNormal8.5-10.5 [facility] HospitalComment on above:Performed By: #### RUBEN MORALES, , 07319-4 ####[facility] ([id number])[address], [address], [place] [address]Knhgycle [Moles/Vol]104 mmol/FLckvdh41-458OaqStlsub [facility]ers HospitalComment on above:Performed By: #### CARMEN, CMP, , 31035-5 ####[facility] ([id number])[address], [address], [place] [address]RA0 [Moles/Vol]27 mmol/VEkjlip84-57HtsJhqyit [facility] HospitalComment on above:Performed By: #### RUBEN MORALES, , 97045-5 ####[facility] ([id number])[address] [address] [address]Eutwgwdrnh [Mass/Vol]1.86 mg/dLHigh0.40-1.00[facility]ers HospitalComment on above: Result Comment: METHOD TRACEABLE TO IDMS STANDARDPerformed By: #### RUBEN MORALES, , 11306-3 ####[facility] ([id number])[address] [address], [place] [address]VGA/1.73 sq M.predicted among non-blacks MDRD (S/P/Bld) [Vol rate/Area]27 mL/min/{1.73_m2}Low>59Pro[facility]ers HospitalComment on above:Result Comment: Reported eGFR is based on theCKD-EPI 2020 equation that doesnot use a race coefficient.Performed By: #### RUEBN MORALES, , 84739-4 ####[facility] ([id number])[address] [address], [place] [address]Ifgzhqz [Mass/Vol]158 mg/fBBcfd85-78YciCbgbvm [facility] HospitalComment on above:Performed By: #### RUBEN MORALES, , 53461-0 ####[facility] ([id number])[address] [address], [place] [address]Jgvhjxdks [Moles/Vol]5.1 mmol/LHigh3.5-5.0[facility] HospitalComment on above: Performed By: #### RUBEN MORALES, , 04145-1 ####[facility] ([id number])[address] [address], [place] [address]Nhtmoct [Mass/Vol]6.6 g/dL Normal6.0-8.0[facility] HospitalComment on above:Performed By: #### RUBEN MORALES, , 03031-0 ####[facility] ([id number])[address], [address] [place] [address]Vksqje [Moles/Vol]139 mmol/XTpgxjj051-992 [facility] HospitalComment on above:Performed By: #### RUBEN MORALES, , 56828-2 ####[facility] ([id number])[address], [address] [place] [address]Oywf nitrogen [Mass/Vol]24 mg/dLNormal5-27[facility] HospitalComment on above:Performed By: #### RUBEN MORALES, , 14728-1 ####[facility] ([id number])[address], [address] [place] [address]Qumdhcs Glucometer (BldC) [Mass/Vol]on 04-79-9176Yzpawhf [Mass/Vol]265 mg/iJXhme59-41GzzLkrxdv [facility] HospitalGlucose [Mass/Vol]184 mg/mVGmqw73-16 [facility] HospitalGlucose [Mass/Vol]200 mg/nOLyes56-50QzjYbgfrg [facility] HospitalGlucose [Mass/Vol]156 mg/wYLavg62-18BltKpyrnk [facility] HospitalGlucose [Mass/Vol]170 mg/rHVlxr25-88DfaLzpnyi [facility] HospitalMAGNESIUMon 02-23-2025 Magnesium [Mass/Vol]2.3 mg/dLNormal1.8-2.6[facility] HospitalComment on above:Performed By: #### RUBEN MORALES, , 28195-1 ####[facility] ([id number])[address], [address] [place] [address]Dpsgturjjmr peptide B [Mass/Vol]on 03-93-9503Gdyjrwobgci peptide B (Bld) [Mass/Vol]37 pg/mL Normal<100.0Pro[facility]ers HospitalComment on above:Performed By: #### RUBEN MORALES, 14032-1, 72044-7 ####[facility] ([id number])[address], [place] [address]PE CHEST 1 VWon 41-56-3643JL CHEST 1 VWNormal [facility]icMer[facility] HospitalBLLAK[facility] CULTUREon 88-61-9821Nbsnxdhy identified Aer cx Nom (Bld)SPECIMEN NOTES SUBOPTIMAL VOLUME OF BLOOD COLLECTED, RESULTS MAY BE AFFECTED. CULTURE RESULTS NO GROWTH 5 DAYSNormalProMedica Angel Fire HospitalComment on above:Performed By: #### 83179-8 ####[facility] ([id number])[address], [address] [place] [address]KVV AND AUTO DIFFon 70-62-2034YRGUFSPS BASOPHIL0.1 X10E9/L Normal0.0-0.2[facility] HospitalComment on above:Performed By: #### CBCA, CMP, ####[facility] ([id number])[address], [address] [place] [address] 29868Wqif form neutrophils/100 WBC (Bld)2.9 %NormalProMedica Angel Fire HospitalComment on above:Performed By: #### CBCA, CMP, 42899-4 ####[facility] ([id number])[address], [address] [place] [address] 11456 Basophils/100 WBC (Bld)1.9 %NormalProMedica Angel Fire HospitalComment on above: Performed By: #### CBCA, CMP, 76464-2 ####[facility] ([id number])[address], [address] [place] [address] 245[address]Hykdnkxmhgi (Bld) [#/Vol] 0.2 10*3/uLNormal0.0-0.4[facility] HospitalComment on above:Performed By: #### CBCA, CMP, ####[facility] ([id number])[address] [address], [place] [address]Yhgsjfomrny/100 WBC (Bld)3.8 %Normal [facility] HospitalComment on above:Performed By: #### CBCA, CMP, ####[facility] ([id number])[address] [address], [place] [address]Edocvfqrwjl distribution width (RBC) [Ratio]17.4 %High11.5-15.0ProGrand [facility] HospitalComment on above:Performed By: #### CBCA, CMP, ####[facility] ([id number])[address], [place] [address] Hematocrit (Bld) [Volume fraction]26.5 %Otw68-84WltWptspk [place] HospitalComment on above:Performed By: #### CBCA, CMP, ####[facility] ([id number])[address] [address] [place] [address] 13813Assgnonkbu (Bld) [Mass/Vol] 8.7 g/dLLow11.7-15.5PKettering Health Greene Memorial HospitalComment on above:Performed By: #### CBCA, CMP, ####[facility] ([id number])[address] [address], [place] [address]LYCLPZYNOI, ATYPICAL1.0 %NormalProGrand Lake Joint [facility] Hospital HospitalComment on above:Performed By: #### CBCA, CMP, ####[facility] ([id number])[address] [address] [address] Lymphocytes (Bld) [#/Vol]1.3 10*3/uLNormal1.0-3.5PKettering Health [facility] Hospital Comment on above:Performed By: #### CBCA, CMP, ####[facility] ([id number])[address], [address], [place] [address]Vtjzyixcfnc/100 WBC (Bld)20.0 %NormalProMedica Childers HospitalComment on above:Performed By: #### CBCDanielle CMP, ####[facility] ([id number])[address], [address] [place] [address]98[address]FME (RBC) [Entitic mass]27.6 qtOnpaop68-59 [facility] HospitalComment on above:Performed By: #### CBCA, CMP, ####[facility] ([id number])[address], [address] [place] [address] 08374RGGA (RBC) [Mass/Vol]32.9 g/fGEvcvoo61-30SjgJgtffp Childers HospitalComment on above:Performed By: #### CBCDanielle, CMP, ####[facility] ([id number])[address], [address] [place] [address] 67826RHN (RBC) [Entitic vol]84 iJHfanmy57-345LfwQqomzs Childers HospitalComment on above:Performed By: #### CBCDanielle, CMP, ####[facility] ([id number])[address], [address] [place] [address] 349[address]Tjcbroodtqjxef/100 WBC (Bld)1.0 %NormalProMedica Childers HospitalComment on above:Performed By: #### CBCA, CMP, ####[facility] ([id number])[address], [address] [place] [address] Monocytes (Bld) [#/Vol]0.5 10*3/uLNormal0-0.9ProMedica Childers HospitalComment on above:Performed By: #### CBCA, CMP, ####[facility] ([id number])[address], [address] [place] [address] 66351Xqaqvkoem/100 WBC (Bld)8.6 %NormalProMedica Childers HospitalComment on above:Performed By: #### CBCA, CMP, ####[facility] ([id number])[address], [address] [place] [address] 13107PYPMTIHYO0.0 %NormalProMedica Childers HospitalComment on above:Performed By: #### CBCA, CMP, ####[facility] ([id number])[address], [address] [place] [address] 757[address]Zanjywpewlk (Bld) [#/Vol] 3.9 10*3/uLNormal1.5-6.6ProMedica Childers HospitalComment on above:Performed By: #### CBCA, CMP, ####[facility] ([id number])[address], [address] [place] [address] 004[address]UOAXSNYCY3+AbnormalNONEProMedica Childers HospitalComment on above:Performed By: #### CBCA, CMP, ####[facility] ([id number])[address], [address] [place] [address] Platelet mean volume (Bld) [Entitic vol]7.7 fLNormal7-12Pro[facility]ica Childers HospitalComment on above:Performed By: #### CBCA, CMP, ####[facility] ([id number])[address], [address] [place] [address] Platelets (Bld) [#/Vol]367 10*3/qSBpslei315-597GmvTylpsf Childers HospitalComment on above:Performed By: #### CBCA, CMP, ####[facility] ([id number])[address] [address], [address] [place] [address] 68674TCXYYOQULFOIS2+AbnormalNONE [facility] HospitalComment on above:Performed By: #### CBCA, CMP, ####[facility] ([id number])[address], [address], [place] [address]HHX COUNT3.16 X10E12/LLow3.80-5.20[facility] Fire HospitalComment on above:Performed By: #### RUBEN MORALES, ####[facility] ([id number])0 [address], [address] [place] [address]AEU SDTDJHHXYI59.8 %Normal [facility] Fire HospitalComment on above:Performed By: #### RUBEN MORALES, ####[facility] ([id number])[address], [address] [place] [address]JEV (Bld) [#/Vol]6.1 10*3/uLNormal4.0-11.0[facility] HospitalComment on above:Performed By: #### RUBEN MORALES, ####[facility] ([id number])[address], [address], [place] [address]UTWLPEQPJRONI METABOLIC PANELon 93-99-2063Lpidfdo [Mass/Vol]3.4 g/dLNormal3.2-5.3[facility] HospitalComment on above:Performed By: #### RUBEN MORALES, ####[facility] ([id number])[address], [address], [place] [address]PEA [Catalytic activity/Vol]105 U/UWrgxxe33-769PhoLcffqq [place] HospitalComment on above:Performed By: #### CARMEN CMP, ####[facility] ([id number])[address], [address], [place] [address]ZRY [Catalytic activity/Vol]24 U/LNormal0-31[facility] HospitalComment on above:Performed By: #### CARMEN CMP, ####[facility] ([id number])[address], [address], [place] [address]Rmcak gap [Moles/Vol]7 mmol/LNormal5-15 [facility] HospitalComment on above:Performed By: #### CARMEN CMP, ####[facility] ([id number])[address], [address], [place] [address]AAC [Catalytic activity/Vol]25 U/LNormal0-41[facility] Comment on above:Performed By: #### CARMEN CMP, ####[facility] ([id number])[address], [address], [place] [address]Lizvuxewc [Mass/Vol]0.3 mg/dLNormal0.3-1.2[facility] HospitalComment on above: Performed By: #### CARMEN CMP, ####[facility] ([id number])[address], [address], [place] [address]Wpjrxkh [Mass/Vol]9.3 mg/dL Normal8.5-10.5[facility] HospitalComment on above:Performed By: #### CARMEN CMP, ####[facility] ([id number])[address], [address], [place] [address]Qijzexmz [Moles/Vol]101 mmol/KPxocpf72-474UmlUwwphp Angel Fire HospitalComment on above:Performed By: #### CARMEN, CMP, ####[facility] ([id number])[address], [address], [place] [address]PT6 [Moles/Vol]30 mmol/YEdzmcg22-63EneJguuam [place] HospitalComment on above: Performed By: #### CARMEN, CMP, ####[facility] ([id number])[address], [place] [address]Fictxxmtjt [Mass/Vol]1.72 mg/dLHigh0.40-1.00[facility]ers HospitalComment on above:Result Comment: METHOD TRACEABLE TO IDMS STANDARDPerformed By: #### RUBEN MORALES, ####[facility] ([id number])[address] [address], [place] [address]FCY/1.73 sq M.predicted among non-blacks MDRD (S/P/Bld) [Vol rate/Area]30 mL/min/{1.73_m2}Low>59[facility] HospitalComment on above:Result Comment: Reported eGFR is based on theCKD-EPI 2020 equation that doesnot use a race coefficient.Performed By: #### RUBEN MORALES, ####[facility] ([id number])0 [address] [address] [place] [address]Vvrhrrp [Mass/Vol]67 mg/vAXdafie52-75UyeOuxxft [facility] Fire HospitalComment on above:Performed By: #### RUBEN MORALES, ####[facility] ([id number])[address] [address], [place] [address]Dfwsoutfh [Moles/Vol]4.6 mmol/LNormal3.5-5.0[facility] HospitalComment on above:Performed By: #### RUBEN MORALES, ####[facility] ([id number])[address] [address] [address] Protein [Mass/Vol]7.0 g/dLNormal6.0-8.0[facility] HospitalComment on above:Performed By: #### RUBEN MORALES, ####[facility] ([id number])[address] [address], [place] [address]Pubkex [Moles/Vol]138 mmol/QBnewkz129-745GzwAjnhxn [facility] HospitalComment on above:Performed By: #### RUBEN MORALES, 30896-3 ####[facility] ([id number])[address], [address] [place] [address]Fsyf nitrogen [Mass/Vol]19 mg/dLNormal5-27ProSum[facility] Health [facility]ron CampusComment on above:Performed By: #### RUBEN MORALES, ####[facility] ([id number])[address], [address] [place] [address] Glucose Glucometer (BldC) [Mass/Vol]on 93-97-2526Kkwyazg [Mass/Vol]171 mg/dLHigh 65-99[facility] HospitalGlucose [Mass/Vol]209 mg/mCMvga12-00RviEhbjnk [place] HospitalGlucose [Mass/Vol]149 mg/pIMsip83-53MwrXfbund [facility] [facility] Glucose [Mass/Vol]79 mg/yPKhaloh58-39NolCopiaw [place] HospitalMAGNESIUMon 07-72-2771Acmrnsosz [Mass/Vol]2.5 mg/dLNormal1.8-2.6[facility] Comment on above:Performed By: #### RUBEN MORALES, ####[facility] ([id number])[address], [address] [address]LGQRD CULTUREon 22-61-6442Azhzcisz identified Aer cx Nom (Bld)SPECIMEN NOTES SUBOPTIMAL VOLUME OF BLOOD COLLECTED, RESULTS MAY BE AFFECTED. CULTURE RESULTS NO GROWTH 5 DAYSNormalProSumma Health Akron CampusComment on above:Performed By: #### 05809-6 ####[facility] ([id number])[address], [address] [address]QVM AND AUTO DIFFon 36-17-3297Pneu form neutrophils/100 WBC (Bld)1.0 %NormalProGrand [facility] HospitalComment on above:Performed By: #### RUBEN, , CBCA ####[facility] ([id number])[address], [address], [place] [address]Edmsfrukckh (Bld) [#/Vol]0.2 10*3/uLNormal0.0-0.4 [facility] HospitalComment on above:Performed By: #### RUBEN, , CBCA ####[facility] ([id number])[address], [address], [place] [address]Jwnoarannol/100 WBC (Bld)3.0 %NormalProMedica Angel Fire HospitalComment on above:Performed By: #### RUBEN, , CBCA ####[facility] ([id number])[address], [address], [place] [address]Oednucbdvbk distribution width (RBC) [Ratio]16.8 %High11.5-15.0[facility] HospitalComment on above: Performed By: #### RUBEN, , CBCA ####[facility] ([id number])[address], [address], [place] [address]Maakhjluqg (Bld) [Volume fraction]25.6 %Axi77-93MytBfkdsj Angel Fire HospitalComment on above:Performed By: #### RUBEN, , CBCA ####[facility] ([id number])[address] [address], [place] [address]Ctkebtxuvu (Bld) [Mass/Vol]8.5 g/dLLow 11.7-15.5[facility] HospitalComment on above:Performed By: #### RUBEN, , CBCA ####[facility] ([id number])[address] [address], [place] [address]PYGIEMUXUET6+AbnormalNONEProMedica Angel Fire HospitalComment on above:Performed By: #### RUBEN, , CBCA ####[facility] ([id number])[address], [address], [place] [address]Gwhzzzlffgx (Bld) [#/Vol] 1.0 10*3/uLNormal1.0-3.5[facility] HospitalComment on above:Performed By: #### CMP, , CBCA ####[facility] ([id number])[address], [address], [place] [address]Vmuhjfoghjd/100 WBC (Bld)15.0 %Normal [facility] HospitalComment on above:Performed By: #### CMP, , CBCA ####[facility] ([id number])[address], [address] [place] [address]OOU (RBC) [Entitic mass]27.4 hbBwumix46-90WztWhbhgt [facility] HospitalComment on above:Performed By: #### RUBEN, , CBCA ####[facility] ([id number])[address], [address], [place] [address]ZVJA (RBC) [Mass/Vol]33.2 g/aNPhbsbp54-53WbsUtqmvi [facility] HospitalComment on above:Performed By: #### CMP, , CBCA ####[facility] ([id number])[address], [place] [address]YXC (RBC) [Entitic vol]83 oVKzzvpj54-153OlwUftdjh [facility] HospitalComment on above:Performed By: #### CMP, , CBCA ####[facility] ([id number])[address], [address] [address] Metamyelocytes/100 WBC (Bld)2.0 %NormalProMedica Childers HospitalComment on above:Performed By: #### CMP, , CBCA ####[facility] ([id number])[address], [address], [place] [address]Njauneswi (Bld) [#/Vol]0.7 10*3/uLNormal0-0.9[facility] HospitalComment on above:Performed By: #### CMP, , CBCA ####[facility] ([id number])[address], [address], [place] [address]Chpdudohe/100 WBC (Bld)11.0 %NormalProPomerene Hospitalca Childers HospitalComment on above:Performed By: #### CMP, , CBCA ####[facility] ([id number])[address], [address], [place] [address] MYELOCYTE4.0 %NormalProPomerene Hospitalca Childers HospitalComment on above:Performed By: #### CMP, , CBCA ####[facility] ([id number])[address], [address] [place] [address], [place] [address]Icrhtkiushd (Bld) [#/Vol]4.4 10*3/uLNormal1.5-6.6 [facility] HospitalComment on above:Performed By: #### CMP, , CBCA ####[facility] ([id number])[address], [address] [place] [address], [place] [address]Elbtqgbs mean volume (Bld) [Entitic vol]8.2 fLNormal7-12[facility] HospitalComment on above:Performed By: #### CMP, , CBCA ####[facility] ([id number])[address], [address] [place] [address], [place] [address] Platelets (Bld) [#/Vol]343 10*3/bSHfxcyc264-210YrfPhwhex [facility] HospitalComment on above:Performed By: #### CMP, , CBCA ####[facility] ([id number])[address], [address], [place] [address]NECRPIZDPQQXQ2+AbnormalNONE [facility] HospitalComment on above:Performed By: #### RUBEN, , CBCA ####[facility] ([id number])[address], [address] [place] [address]XUM COUNT3.10 X10E12/LLow3.80-5.20ProPomerene Hospitalca [facility] Fire HospitalComment on above:Performed By: #### RUBEN, , CBCA ####[facility] ([id number])[address], [address] [place] [address]LFN VKDHYGVBKK32.0 %Normal [facility] HospitalComment on above:Performed By: #### RUBEN, , CBCA ####[facility] ([id number])[address], [address] [place] [address]LUV (Bld) [#/Vol]6.7 10*3/uLNormal4.0-11.0Pro[facility] HospitalComment on above:Performed By: #### RUBEN, , CBCA ####[facility] ([id number])[address], [address] [place] [address]BFBHARNKTIAKM METABOLIC PANELon 04-53-1125Ydzgaoo [Mass/Vol]3.4 g/dLNormal3.2-5.3[facility] HospitalComment on above:Performed By: #### RUBEN, , CBCA ####[facility] ([id number])[address], [address] [place] [address]WGV [Catalytic activity/Vol]112 U/RYcfdgm55-898JetMngmxe [place] HospitalComment on above:Performed By: #### RUBEN, , CBCA ####[facility] ([id number])[address], [address], [place] [address]VOF [Catalytic activity/Vol]22 U/LNormal0-31[facility] HospitalComment on above:Performed By: #### RUBEN, , CBCA ####[facility] ([id number])[address], [address], [place] [address]Ulliw gap [Moles/Vol]10 mmol/LNormal5-15 [facility] HospitalComment on above:Performed By: #### RUBEN, , CBCA ####[facility] ([id number])[address], [address], [place] [address]JZP [Catalytic activity/Vol]26 U/LNormal0-41[facility] Hospital Comment on above:Performed By: #### RUBEN, , CBCA ####[facility] ([id number])[address], [address], [place] [address]Wlaqklets [Mass/Vol]0.3 mg/dLNormal0.3-1.2[facility] HospitalComment on above: Performed By: #### RUBEN, , CBCA ####[facility] ([id number])[address], [address], [place] [address]Kwiqnef [Mass/Vol]9.2 mg/dL Normal8.5-10.5[facility] Childers HospitalComment on above:Performed By: #### RUBEN, , CBCA ####[facility] ([id number])[address], [address], [place] [address]Uiplxogo [Moles/Vol]101 mmol/RMheruy17-443HcfIsprxg [facility] HospitalComment on above:Performed By: #### RUBEN, , CBCA ####[facility] ([id number])[address], [address], [place] [address]NH1 [Moles/Vol]28 mmol/UEfvlss93-48CxdXngjzu [facility] HospitalComment on above: Performed By: #### RUBEN, , CBCA ####[facility] ([id number])[address] [address], [place] [address]Jnmklgolfv [Mass/Vol]1.50 mg/dLHigh0.40-1.00[facility] HospitalComment on above:Result Comment: METHOD TRACEABLE TO IDMS STANDARDPerformed By: #### RUBEN, , CBCA ####[facility] ([id number])[address] [address], [place] [address]XCN/1.73 sq M.predicted among non-blacks MDRD (S/P/Bld) [Vol rate/Area]35 mL/min/{1.73_m2}Low>59[facility] HospitalComment on above:Result Comment: Reported eGFR is based on theCKD-EPI 2020 equation that doesnot use a race coefficient.Performed By: #### RUBEN, , CBCA ####[facility] ([id number])[address] [address], [place] [address]Jkrxxgc [Mass/Vol]108 mg/hJEyxg11-12UeoAqpszg [facility] HospitalComment on above:Performed By: #### RUBEN, , CBCA ####[facility] ([id number])[address] [address]Mnousflfm [Moles/Vol]4.5 mmol/LNormal3.5-5.0[facility] HospitalComment on above:Performed By: #### RUBEN, , CBCA ####[facility] ([id number])[address] [place] [address] Protein [Mass/Vol]6.6 g/dLNormal6.0-8.0ProP[facility] Hospitalca [facility] HospitalComment on above:Performed By: #### RUBEN, , CBCA ####[facility] ([id number])[address], [place] [address]Dqejoc [Moles/Vol]139 mmol/VZainnm098-879BsaIlghnd [facility] HospitalComment on above:Performed By: #### RUBEN, , CBCA ####[facility] ([id number])[address], [address], [place] [address]Bcni nitrogen [Mass/Vol]15 mg/dLNormal5-27[facility] HospitalComment on above:Performed By: #### RUBEN, , CBCA ####[facility] ([id number])[address], [place] [address] Glucose Glucometer (BldC) [Mass/Vol]on 54-50-4876Agrfwtm [Mass/Vol]186 mg/dLHigh 65-99Pro[facility] Hospitalca [facility] HospitalGlucose [Mass/Vol]189 mg/sOOsvq53-42XbnVphxpl [facility]ers HospitalGlucose [Mass/Vol]165 mg/gKQllu30-20TxrApvqwf [facility] Glucose [Mass/Vol]123 mg/oIPeyr33-86ThaXtayha [place] HospitalMAGNESIUMon 46-68-5450Vldrmodrl [Mass/Vol]2.6 mg/dLNormal1.8-2.6Pro[facility] Comment on above:Performed By: #### 95293-2 ####[facility] ([id number])[address], [address] [place] [address]Dtmoegaks [Mass/Vol]1.8 mg/dLNormal1.8-2.6[facility] HospitalComment on above:Performed By: #### RUBEN, , CBCA ####[facility] ([id number])[address], [address], [place] [address]KIV AND AUTO DIFFon 70-65-4826Gsyl form neutrophils/100 WBC (Bld)1.0 %NormalProMedica Angel Fire HospitalComment on above:Performed By: #### CBCDanielle CMP, , 2157-04 ####[facility] ([id number])[address], [address], [place] [address]Nmlnbnglduf (Bld) [#/Vol] 0.3 10*3/uLNormal0.0-0.4Pro[facility] HospitalComment on above:Performed By: #### CBCA, CMP, , 2157-04 ####[facility] ([id number])[address], [address], [place] [address]Pymgtrkkthe/100 WBC (Bld) 4.0 %NormalProGrand [facility] HospitalComment on above:Performed By: #### CBCDanielle CMP, , 2157-04 ####[facility] ([id number])[address], [address], [place] [address]Wcpnxdbontj distribution width (RBC) [Ratio]17.2 %High11.5-15.0ProSumma Health [facility]ron CampusComment on above:Performed By: #### RUBEN MORALES, , 2157-04 ####[facility] ([id number])[address] [address]AXMDXQEU9+AbnormalNONEProMedica Angel Fire HospitalComment on above:Performed By: #### CBCA, CMP, , 2157-04 ####[facility] ([id number])[address], [place] [address]Usuhvvinji (Bld) [Volume fraction]23.6 %Dfq81-70QqyFesvef [facility] Comment on above:Performed By: #### CBCA, CMP, , 2157-04 ####[facility] ([id number])[address], [place] [address] Hemoglobin (Bld) [Mass/Vol]7.9 g/dLLow11.7-15.5PKettering Health Greene Memorial HospitalComment on above:Performed By: #### CBCA, CMP, , 2157-04 ####[facility] ([id number])[address], [address] [place] [address]ZAHVTXEPMVB2+ AbnormalNONEProMedWayne Hospital HospitalComment on above:Performed By: #### CBCA, CMP, , 2157-04 ####[facility] ([id number])[address], [address], [place] [address]Durybbhuuzx (Bld) [#/Vol]1.8 10*3/uLNormal 1.0-3.5PKettering Health Greene Memorial HospitalComment on above:Performed By: #### CBCA, CMP, , 2157-04 ####[facility] ([id number])[address], [address] [place] [address]Dkonvzrqpgf/100 WBC (Bld)23.2 %NormalProGrand [facility] HospitalComment on above:Performed By: #### CBCA, CMP, , 2157-04 ####[facility] ([id number])[address], [address] [place] [address]FGA (RBC) [Entitic mass]27.7 yuDsudtt97-48MraQevcat [facility] Fire HospitalComment on above:Performed By: #### CBCA, CMP, , 2157-04 ####[facility] ([id number])[address], [address] [place] [address]BEYM (RBC) [Mass/Vol]33.2 g/tAQibgqc75-16YljSponia [facility]ers HospitalComment on above: Performed By: #### CBCA, CMP, , 2157-04 ####[facility] ([id number])[address] [address]AMX (RBC) [Entitic vol]83 wNUjhcqp42-764VnkYowoqi [facility] HospitalComment on above:Performed By: #### CBCA, CMP, , 2157-04 ####[facility] ([id number])[address], [address], [place] [address]Zfboikcanxgkhm/100 WBC (Bld)1.0 %NormalProMedica Childers HospitalComment on above:Performed By: #### CBCA, CMP, , 2157-04 ####[facility] ([id number])[address], [address], [place] [address]Wejzsvfuk (Bld) [#/Vol]0.9 10*3/uLNormal0-0.9[facility] Comment on above:Performed By: #### CBCA, CMP, , 2157-04 ####[facility] ([id number])[address], [place] [address] Monocytes/100 WBC (Bld)12.1 %NormalProMedica Childers HospitalComment on above: Performed By: #### CBCA, CMP, , 2157-04 ####[facility] ([id number])[address], [place] [address]USGDKPYTV3.0 %Normal [facility] HospitalComment on above:Performed By: #### CBCA, CMP, , 2157-04 ####[facility] ([id number])[address] [address]Kcdpdssjgnz (Bld) [#/Vol]4.4 10*3/uLNormal1.5-6.6[facility] HospitalComment on above:Performed By: #### CBCA, CMP, , 2157-04 ####[facility] ([id number])[address], [address], [place] [address]Exmiobrc mean volume (Bld) [Entitic vol]8.4 fLNormal7-12[facility] HospitalComment on above:Performed By: #### CBCA, CMP, , 2157-04 ####[facility] ([id number])[address], [place] [address]Amnkytdjn (Bld) [#/Vol]320 10*3/tBJughtw262-928NgnQnbxrh [facility] Comment on above:Performed By: #### CBCDanielle, CMP, , 2157-04 ####[facility] ([id number])[address], [address] [place] [address]MDS COUNT2.83 X10E12/LLow3.80-5.20ProPomerene Hospitalca [facility] HospitalComment on above: Performed By: #### CBCA, CMP, , 2157-04 ####[facility] ([id number])[address], [address] [place] [address]TAW DIMWCYWQLO99.7 %Normal [facility] HospitalComment on above:Performed By: #### CBCA, CMP, , 2157-04 ####[facility] ([id number])[address], [address] [place] [address]FDZ (Bld) [#/Vol]7.8 10*3/uLNormal4.0-11.0Pro[facility] Hospitalca [facility] HospitalComment on above:Performed By: #### CBCA, CMP, , 2157-04 ####[facility] ([id number])[address], [address], [place] [address]SZ [Catalytic activity/Vol]on 37-31-4779SXM01 U/DEtzafn51-592UhwZuqhmx [facility] HospitalComment on above:Performed By: #### CARMEN, CMP, , 2157-04 ####[facility] ([id number])[address], [address], [place] [address]XBVHPZNDFOMHP METABOLIC PANELon 82-20-8884Ocgknbc [Mass/Vol]3.2 g/dLNormal 3.2-5.3[facility] HospitalComment on above:Performed By: #### CARMEN, CMP, , 2157-04 ####[facility] ([id number])[address], [address], [place] [address]VZI [Catalytic activity/Vol]106 U/PIllajl75-571 [facility] HospitalComment on above:Performed By: #### CARMEN, CMP, , 2157-04 ####[facility] ([id number])[address], [address], [place] [address]YJI [Catalytic activity/Vol]22 U/LNormal0-31[facility] HospitalComment on above:Performed By: #### CARMEN, CMP, , 2157-04 ####[facility] ([id number])[address], [address], [place] [address]Iplkg gap [Moles/Vol]9 mmol/LNormal5-15[facility] HospitalComment on above:Performed By: #### CARMEN, CMP, , 2157-04 ####[facility] ([id number])[address], [address], [place] [address]UIV [Catalytic activity/Vol]24 U/LNormal0-41[facility] HospitalComment on above:Performed By: #### CBCA, CMP, , 2157-04 ####[facility] ([id number])[address], [address], [place] [address]Pzhgkkdzv [Mass/Vol]0.3 mg/dLNormal0.3-1.2[facility] HospitalComment on above:Performed By: #### RUBEN MORALES, , 2157-04 ####[facility] ([id number])[address], [address] [address]Vbwkrgk [Mass/Vol]9.0 mg/dLNormal8.5-10.5 [facility] HospitalComment on above:Performed By: #### RUBEN MORALES, , 2157-04 ####[facility] ([id number])[address], [address], [place] [address]Ozefpixw [Moles/Vol]101 mmol/WWhxlaf36-249IzeIvkhfl Childers HospitalComment on above:Performed By: #### RUBEN MORALES, , 2157-04 ####[facility] ([id number])[address] [address], [place] [address]DR1 [Moles/Vol]29 mmol/UIzbryz02-84AqnZsjqzy [place] HospitalComment on above:Performed By: #### RUBEN MORALES, , 2157-04 ####[facility] ([id number])[address] [address], [place] [address]Qgqmemjmcg [Mass/Vol] 1.45 mg/dLHigh0.40-1.00[facility] HospitalComment on above:Result Comment: METHOD TRACEABLE TO IDDE STANDARDPerformed By: #### RUBEN MORALES, , 2157-04 ####[facility] ([id number])[address] [address], [place] [address]EGX/1.73 sq M.predicted among non-blacks MDRD (S/P/Bld) [Vol rate/Area]37 mL/min/{1.73_m2}Low>59[facility] HospitalComment on above:Result Comment: Reported eGFR is based on theCKD-EPI 2020 equation that doesnot use a race coefficient.Performed By: #### RUBEN MORALES, , 2157-04 ####[facility] ([id number])[address], [address], [place] [address]Ijijvxt [Mass/Vol]110 mg/qYPqgf66-78BzzXgzzxr [facility] HospitalComment on above:Performed By: #### RUBEN MORALES, , 2157-04 ####[facility] ([id number])[address], [address] [place] [address]Aspzihcys [Moles/Vol]4.6 mmol/LNormal3.5-5.0[facility] HospitalComment on above:Performed By: #### RUBEN MORALES, , 2157-04 ####[facility] ([id number])[address], [address], [place] [address]Eowoeks [Mass/Vol]6.4 g/dLNormal6.0-8.0 [facility] Childers HospitalComment on above:Performed By: #### RUBEN MORALES, , 2157-04 ####[facility] ([id number])[address], [address], [place] [address]Cltzpm [Moles/Vol]139 mmol/ODajoik411-418OhrCozzwn Childers HospitalComment on above:Performed By: #### RUBEN MORALES, , 2157-04 ####[facility] ([id number])[address], [address], [place] [address]Eghe nitrogen [Mass/Vol]14 mg/dLNormal5-27Pro[facility] Childers HospitalComment on above:Performed By: #### RUBEN MORALES, , 2157-04 ####[facility] ([id number])[address], [address], [place] [address]OP CHEST WO CONT on 24-76-3535BP CHEST WO CONTNormalProGrand Lake [facility] HospitalGlucose Glucometer (BldC) [Mass/Vol]on 56-87-1600Ejpplpj [Mass/Vol]253 mg/aQFivp54-20SqkLxjfga [place] HospitalGlucose [Mass/Vol]145 mg/yDYxam79-05NdkHpfeem [facility] Glucose [Mass/Vol]237 mg/nNRwus70-50DwzUgapeq [place] HospitalGlucose [Mass/Vol] 143 mg/wBCmqa06-46UxoYpqyqb [place] HospitalMAGNESIUMon 16-82-9134Wxweswjrk [Mass/Vol]1.9 mg/dLNormal1.8-2.6Pro[facility] HospitalComment on above: Performed By: #### RUBEN MORALES, 21617-0, 7-6 ####[facility] ([id number])[address], [address] [place] [address]KSWZI CULTUREon 02-19-2025 Bacteria identified Aer cx Nom (Bld)SPECIMEN NOTES SUBOPTIMAL VOLUME OF BLOOD COLLECTED, RESULTS MAY BE AFFECTED. CULTURE RESULTS STAPHYLOCOCCUS AUREUS METHICILLIN RESISTANT FOR SUSCEPTIBILITY, SEE PREVIOUS REPORT.NormalPremier Health [facility] HospitalComment on above:Performed By: #### 17140-3 ####[facility] ([id number])[address], [address] [place] [address]Hpqxvuon identified Aer cx Nom (Bld)SPECIMEN NOTES SUBOPTIMAL VOLUME OF BLOOD COLLECTED, RESULTS MAY BE AFFECTED. CULTURE RESULTS STAPHYLOCOCCUS AUREUS METHICILLIN RESISTANT FOR SUSCEPTIBILITY, SEE PREVIOUS REPORT.NormalPremier Health Miami Valley Hospital North HospitalComment on above:Performed By: #### 87607-3 ####[facility] ([id number])[address], [address] [place] [address]QTG AND AUTO DIFFon 67-36-4369Tyjognddzye (Bld) [#/Vol]0.1 10*3/uLNormal0.0-0.4ProSumma Health Akron CampusComment on above:Performed By: #### CBCA, CMP, 24996-3 ####[facility] ([id number])[address], [address], [place] [address] Eosinophils/100 WBC (Bld)1.0 %NormalProMedica Angel Fire HospitalComment on above: Performed By: #### CBCA, CMP, 49373-5 ####[facility] ([id number])[address], [address], [place] [address]Tfhwmtuqdow distribution width (RBC) [Ratio]17.1 %High11.5-15.0[facility] HospitalComment on above: Performed By: #### CBCA, CMP, ####[facility] ([id number])[address], [address], [place] [address]Znwuorhxks (Bld) [Volume fraction]24.1 %Saf90-04PnxAwrgyg [facility] HospitalComment on above:Performed By: #### CBCA, CMP, ####[facility] ([id number])[address], [address], [place] [address]Scfyntqdfo (Bld) [Mass/Vol]7.9 g/dLLow 11.7-15.5[facility] HospitalComment on above:Performed By: #### CBCA, CMP, ####[facility] ([id number])[address] [address] [place] [address]Emzuqkbxegb (Bld) [#/Vol]1.8 10*3/uLNormal1.0-3.5[facility] HospitalComment on above:Performed By: #### CBCA, CMP, ####[facility] ([id number])[address] [address], [place] [address] Lymphocytes/100 WBC (Bld)21.0 %NormalProMedica Angel Fire HospitalComment on above: Performed By: #### CBCA, CMP, ####[facility] ([id number])[address], [address], [place] [address]YFI (RBC) [Entitic mass] 27.3 ntYpkimw83-58OfvLcarbk Childers HospitalComment on above:Performed By: #### CBCA, CMP, ####[facility] ([id number])[address], [address], [place] [address]CRTJ (RBC) [Mass/Vol]32.7 g/pHWbfnau79-71LuxTxqzlb [facility]ers HospitalComment on above:Performed By: #### CBCA, CMP, ####[facility] ([id number])[address], [address] [place] [address]YTM (RBC) [Entitic vol]84 pOBleull95-477YpmAobfny [facility]ers HospitalComment on above: Performed By: #### CBCA, CMP, ####[facility] ([id number])[address], [address] [place] [address]Yaymomamo (Bld) [#/Vol]0.6 10*3/uLNormal0-0.9[facility] Childers HospitalComment on above:Performed By: #### CBCA, CMP, ####[facility] ([id number])[address], [address] [place] [address]Vugxkakxe/100 WBC (Bld)7.0 %NormalProMedica Childers HospitalComment on above:Performed By: #### CBCA, CMP, ####[facility] ([id number])[address], [address] [place] [address] MYELOCYTE2.0 %NormalProMedica Childers HospitalComment on above:Performed By: #### CBCA, CMP, ####[facility] ([id number])[address], [address] [place] [address]Wpzmfejnssk (Bld) [#/Vol]6.1 10*3/uLNormal1.5-6.6 [facility]ers HospitalComment on above:Performed By: #### CARMEN CMP, ####[facility] ([id number])[address], [address], [place] [address]EUQLFCCYB4+AbnormalNONEProMedica Childers HospitalComment on above:Performed By: #### CARMEN CMP, ####[facility] ([id number])[address], [address], [place] [address]Aaaissyw mean volume (Bld) [Entitic vol]8.3 fLNormal7-12[facility] HospitalComment on above:Performed By: #### RUBEN MORALES, ####[facility] ([id number])[address], [address], [place] [address]Phyimmsik (Bld) [#/Vol]288 10*3/cRNbbzny327-336HpzWzjrpf [facility]ers HospitalComment on above:Performed By: #### CARMEN CMP, ####[facility] ([id number])[address], [address], [place] [address] POLYCHROMASIA1+AbnormalNONEProMedica Childers HospitalComment on above:Performed By: #### CARMEN CMP, ####[facility] ([id number])[address], [address] [place] [address]MOM COUNT2.89 X10E12/LLow3.80-5.20[facility]ers HospitalComment on above:Performed By: #### CARMEN CMP, ####[facility] ([id number])[address], [address], [place] [address]OFU APIBGLXRBG33.0 %NormalProMedica Childers HospitalComment on above:Performed By: #### RUBEN MORALES, ####[facility] ([id number])[address], [address], [place] [address]ISM (Bld) [#/Vol]8.8 10*3/uLNormal4.0-11.0 [facility] HospitalComment on above:Performed By: #### URBEN MORALES, ####[facility] ([id number])[address], [address], [place] [address]UVZNXTRANPMZW METABOLIC PANELon 92-88-2127Vwunatx [Mass/Vol]3.2 g/dLNormal 3.2-5.3[facility]ers HospitalComment on above:Performed By: #### RUBEN MORALES, ####[facility] ([id number])[address], [address], [place] [address]ZWL [Catalytic activity/Vol]112 U/VWtehax38-614LstMofpxs Childers HospitalComment on above:Performed By: #### RUBEN MORALES, ####[facility] ([id number])[address], [address], [place] [address]PJB [Catalytic activity/Vol]23 U/LNormal0-31[facility] HospitalComment on above:Performed By: #### RUBEN MORALES, ####[facility] ([id number])[address], [address], [place] [address]Igazr gap [Moles/Vol]8 mmol/LNormal5-15[facility] HospitalComment on above:Performed By: #### RUBEN MORALES, ####[facility] ([id number])[address], [address], [place] [address]KEG [Catalytic activity/Vol]20 U/LNormal0-41[facility] HospitalComment on above:Performed By: #### CARMEN CMP, ####[facility] ([id number])[address], [place] [address] Bilirubin [Mass/Vol]0.3 mg/dLNormal0.3-1.2[facility] HospitalComment on above:Performed By: #### RUBEN MORALES, ####[facility] ([id number])[address], [address], [place] [address]Ognogxq [Mass/Vol]9.3 mg/dL Normal8.5-10.5[facility] HospitalComment on above:Performed By: #### RUBEN MORALES, ####[facility] ([id number])[address], [address], [place] [address]Yoaehyxa [Moles/Vol]103 mmol/CIjryfq38-076XgwNowjsx [place] HospitalComment on above:Performed By: #### RUBEN MORALES, ####[facility] ([id number])[address], [address], [place] [address]HO8 [Moles/Vol]30 mmol/DLqdrui53-78EluLmxmjp [place] HospitalComment on above: Performed By: #### RUBEN MORALES, ####[facility] ([id number])[address] [address], [place] [address]Nzdmeidged [Mass/Vol]1.30 mg/dLHigh0.40-1.00Pro[facility] HospitalComment on above:Result Comment: METHOD TRACEABLE TO IDMS STANDARDPerformed By: #### RUBEN MORALES, ####[facility] ([id number])[address], [place] [address]DCS/1.73 sq M.predicted among non-blacks MDRD (S/P/Bld) [Vol rate/Area]42 mL/min/{1.73_m2}Low>59Pro[facility]ers HospitalComment on above:Result Comment: Reported eGFR is based on theCKD-EPI 2020 equation that doesnot use a race coefficient.Performed By: #### RUBEN MORALES, ####[facility] ([id number])[address], [address], [place] [address]Qwfficb [Mass/Vol]95 mg/cABgsnzd87-19LfrBumuzr Childers HospitalComment on above:Performed By: #### RUBEN MORALES, ####[facility] ([id number])[address], [place] [address]Rgnzgfhuz [Moles/Vol]4.3 mmol/LNormal3.5-5.0[facility] HospitalComment on above:Performed By: #### RUBEN MORALES, ####[facility] ([id number])[address], [place] [address] Protein [Mass/Vol]6.2 g/dLNormal6.0-8.0[facility] HospitalComment on above:Performed By: #### RUBEN MORALES, ####[facility] ([id number])[address] [address], [place] [address]Edzkrn [Moles/Vol]141 mmol/NGxcnxb850-558HigLumtxd Childers HospitalComment on above:Performed By: #### RUBEN MORALES, ####[facility] ([id number])[address], [place] [address]Mqyf nitrogen [Mass/Vol]13 mg/dLNormal5-27[facility] HospitalComment on above:Performed By: #### RUBEN MORALES, ####[facility] ([id number])[address], [place] [address] Glucose Glucometer (BldC) [Mass/Vol]on 58-00-2568Brvotod [Mass/Vol]202 mg/dLHigh 65-99ProSum[facility] Health [facility] CampusGlucose [Mass/Vol]171 mg/kYTkmu85-22OmdGjgzkzSumma Health Akron CampusGlucose [Mass/Vol]200 mg/eTNfrt47-67WfoZtvqqtSumma Health [facility] Campus Glucose [Mass/Vol]100 mg/nDKzte34-54QksBlbuxe [place] HospitalMAGNESIUMon 69-08-2848Sjgoiuxmm [Mass/Vol]2.1 mg/dLNormal1.8-2.6[facility] Comment on above:Performed By: #### CARMEN, CMP, 45825-7 ####[facility] ([id number])[address], [address] [place] [address]Rqzjisroti peak [Mass/Vol]on 50-80-2380LDNPJLHWKF PEAK36.7 ug/kDMkwaiy52.00-40.00Pro[facility] HospitalComment on above:Performed By: #### 4090-7 ####[facility] ([id number])[address] [place] [address]Esiowqlpbj trough [Mass/Vol]on 08-59-0614QWGGIEHLTW XAWCVD70.2 ug/mLHigh5.0-20.0ProSumma Health [facility] CampusComment on above:Performed By: #### 4092-3 ####[facility] ([id number])[address], [address] [place] [address]IBB AND AUTO DIFFon 75-69-0388PKNUGCMFOLG7+AbnormalNONEProMedica Angel Fire HospitalComment on above:Performed By: #### CBCA, 07862-3, CMP ####[facility] ([id number])[address], [address] [place] [address]Efqpmqwxrub (Bld) [#/Vol] 0.2 10*3/uLNormal0.0-0.4[facility] HospitalComment on above:Performed By: #### CARMEN, , CMP ####[facility] ([id number])[address], [address], [place] [address]Mkjjgmusozi/100 WBC (Bld)3.0 %Normal [facility]ers HospitalComment on above:Performed By: #### CARMEN, , CMP ####[facility] ([id number])[address], [place] [address]Oyszljvoikl distribution width (RBC) [Ratio]16.7 %High11.5-15.0[facility]ers HospitalComment on above:Performed By: #### CARMEN, , CMP ####[facility] ([id number])[address], [place] [address] Hematocrit (Bld) [Volume fraction]22.6 %Zgn05-62ScuDafvfk [facility]ers HospitalComment on above:Performed By: #### CARMEN, , CMP ####[facility] ([id number])[address], [address], [place] [address]Vennhlwhww (Bld) [Mass/Vol] 7.4 g/dLLow11.7-15.5[facility] HospitalComment on above:Performed By: #### CARMEN, , CMP ####[facility] ([id number])[address], [place] [address]Ybxqzixanwu (Bld) [#/Vol]1.8 10*3/uLNormal1.0-3.5 [facility] HospitalComment on above:Performed By: #### CARMEN, , CMP ####[facility] ([id number])[address], [address], [place] [address]Qdqzfvpstsu/100 WBC (Bld)24.2 %NormalProMedica Childers HospitalComment on above:Performed By: #### CARMEN, , CMP ####[facility] ([id number])[address], [address] [place] [address]VWZ (RBC) [Entitic mass] 27.6 idLoupay87-88UnsAuocpr [facility]ers HospitalComment on above:Performed By: #### CARMEN, , CMP ####[facility] ([id number])[address], [address] [place] [address]MEQI (RBC) [Mass/Vol]33.0 g/dTKipfmf45-67WumNjkqrx [facility] HospitalComment on above:Performed By: #### CARMEN, , CMP ####[facility] ([id number])[address], [address], [place] [address]TJZ (RBC) [Entitic vol]84 lLFqjigw02-135ZofQxpvxg [facility]ers HospitalComment on above: Performed By: #### CARMEN, , CMP ####[facility] ([id number])[address], [address] [place] [address]Mhijvtrsu (Bld) [#/Vol]0.9 10*3/uLNormal0-0.9[facility] HospitalComment on above:Performed By: #### CARMEN, , CMP ####[facility] ([id number])[address], [address], [place] [address]Mxjwvpirb/100 WBC (Bld)12.1 %NormalProMedica Childers HospitalComment on above:Performed By: #### CARMEN, , CMP ####[facility] ([id number])[address], [address] [place] [address] MYELOCYTE1.0 %NormalProMedica Childers HospitalComment on above:Performed By: #### CARMEN, , CMP ####[facility] ([id number])[address], [address], [place] [address]Osvslmkhqht (Bld) [#/Vol]4.5 10*3/uLNormal1.5-6.6 [facility] HospitalComment on above:Performed By: #### CARMEN , CMP ####[facility] ([id number])[address], [place] [address]DEGOVWDJJ RBC1.0 /100 WBCNormal0.0-1.0[facility] HospitalComment on above:Performed By: #### CARMEN , CMP ####[facility] ([id number])[address], [address], [place] [address]Judsedbm mean volume (Bld) [Entitic vol]8.5 fLNormal7-12[facility] HospitalComment on above:Performed By: #### CARMEN , CMP ####[facility] ([id number])[address], [address], [place] [address]Nqmvyikxs (Bld) [#/Vol]262 10*3/uLNormal 150-450Pro[facility] HospitalComment on above:Performed By: #### CARMEN , CMP ####[facility] ([id number])[address], [place] [address]MNI COUNT2.70 X10E12/LLow3.80-5.20[facility] Comment on above:Performed By: #### CARMEN , CMP ####[facility] ([id number])[address], [place] [address]URA NEUTROPHIL 59.7 %NormalProMedica Childers HospitalComment on above:Performed By: #### CARMEN , CMP ####[facility] ([id number])[address] [address]NOO (Bld) [#/Vol]7.5 10*3/uLNormal4.0-11.0[facility] HospitalComment on above:Performed By: #### CARMEN , CMP ####[facility] ([id number])[address], [place] [address] COMPREHENSIVE METABOLIC PANELon 87-14-5245Krfiohr [Mass/Vol]3.1 g/dLLow3.2-5.3 [facility] HospitalComment on above:Performed By: #### CARMEN , CMP ####[facility] ([id number])[address], [place] [address]CZS [Catalytic activity/Vol]93 U/XOroaqh67-040ViwStipaj [facility] Comment on above:Performed By: #### CARMEN , CMP ####[facility] ([id number])[address], [place] [address]LOB [Catalytic activity/Vol]22 U/LNormal0-31[facility] HospitalComment on above:Performed By: #### CARMEN , CMP ####[facility] ([id number])[address], [place] [address]Xvkfl gap [Moles/Vol]7 mmol/LNormal5-15 [facility] HospitalComment on above:Performed By: #### CARMEN, , CMP ####[facility] ([id number])[address] [address]ARR [Catalytic activity/Vol]18 U/LNormal0-41[facility] Comment on above:Performed By: #### CARMEN , CMP ####[facility] ([id number])[address] [address]Jgmyqqufw [Mass/Vol]0.3 mg/dLNormal0.3-1.2PKettering Health Greene Memorial HospitalComment on above: Performed By: #### CARMEN, 18892-3, CMP ####[facility] ([id number])[address], [place] [address]Cvalfgv [Mass/Vol]9.0 mg/dL Normal8.5-10.5[facility] HospitalComment on above:Performed By: #### CARMEN, , CMP ####[facility] ([id number])[address], [place] [address]Huvxuudc [Moles/Vol]105 mmol/VUagyhi82-554MygPrftvi [place] HospitalComment on above:Performed By: #### CARMEN, , CMP ####[facility] ([id number])[address] [address]EF0 [Moles/Vol]29 mmol/LAusnww56-41CcvTwwaut [place] HospitalComment on above: Performed By: #### CARMEN, , CMP ####[facility] ([id number])[address], [place] [address]Sqypvkhbdn [Mass/Vol]1.30 mg/dLHigh0.40-1.00Pro[facility] HospitalComment on above:Result Comment: METHOD TRACEABLE TO IDMS STANDARDPerformed By: #### CARMEN, , CMP ####[facility] ([id number])[address], [place] [address]QRS/1.73 sq M.predicted among non-blacks MDRD (S/P/Bld) [Vol rate/Area]42 mL/min/{1.73_m2}Low>59Pro[facility]ers HospitalComment on above:Result Comment: Reported eGFR is based on theCKD-EPI 2020 equation that doesnot use a race coefficient.Performed By: #### CARMEN , CMP ####[facility] ([id number])[address], [place] [address]Otqqoli [Mass/Vol]100 mg/eRMgdh04-20MmiOkrlvf [facility] HospitalComment on above:Performed By: #### CARMEN , CMP ####[facility] ([id number])[address] [address], [place] [address]Zmfhxfknl [Moles/Vol]4.1 mmol/LNormal3.5-5.0ProPomerene Hospitalca [facility] HospitalComment on above:Performed By: #### CARMEN , CMP ####[facility] ([id number])[address] [address] Protein [Mass/Vol]6.0 g/dLNormal6.0-8.0ProPomerene Hospitalca [facility] HospitalComment on above:Performed By: #### CARMEN , CMP ####[facility] ([id number])[address] [address], [place] [address]Mgezmx [Moles/Vol]141 mmol/WEdtyvk251-729VmhGafahi Angel Fire HospitalComment on above:Performed By: ###Adeline MORALES , CMP ####[facility] ([id number])[address] [address], [place] [address]Htmf nitrogen [Mass/Vol]16 mg/dLNormal5-27ProPomerene Hospitalca [facility] HospitalComment on above:Performed By: #### CARMEN , CMP ####[facility] ([id number])[address] [address] [address] Glucose Glucometer (BldC) [Mass/Vol]on 45-09-7966Nkishti [Mass/Vol]143 mg/dLHigh 65-99Pro[facility] HospitalGlucose [Mass/Vol]222 mg/rHTlbo55-15RkzDlmgjl [facility] HospitalGlucose [Mass/Vol]247 mg/uHEejh28-01XtgUbozlb [facility] Glucose [Mass/Vol]110 mg/zWUrtx34-66QfpWcikhg [place] HospitalMAGNESIUMon 08-44-2966Qeafclkeb [Mass/Vol]2.2 mg/dLNormal1.8-2.6[facility] Comment on above:Performed By: #### 01432-5 ####[facility] ([id number])0 [facility], [address] [place] [address]Jxgjszvyg [Mass/Vol]1.9 mg/dLNormal1.8-2.6ProSumma Health Akron CampusComment on above:Performed By: #### CBCA, , CMP ####[facility] ([id number])0 [facility], [address] [place] [address]OBAUU CULTUREon 71-94-7241Nrjdbgpp identified Aer cx Nom (Bld)SPECIMEN NOTES ONLY AEROBIC BOTTLE RECEIVED, SUBOPTIMAL VOLUME OF BLOOD COLLECTED, RESULTS MAY BE AFFECTED SUBOPTIMAL VOLUME OF BLOOD COLLECTED, RESULTS MAY BE AFFECTED. CULTURE RESULTS NO GROWTH 5 DAYSNormalProSumma Health Akron CampusComment on above:Performed By: #### [id number] ####[facility] ([id number])[facility] [address] [address]Eexnqrsx identified Aer cx Nom (Bld)ResistantProSumma Health Akron CampusComment on above:Performed By: #### [id number] ####[facility] ([id number])[facility] [address], [address] [place] [address]EZZ AND AUTO DIFFon 34-79-1325SHGZTCII BASOPHIL0.0 X10E9/LNormal0.0-0.2[facility] HospitalComment on above:Performed By: #### CBCA, CMP, , ####[facility] ([id number])[address], [place] [address]ZRAEXWKQ NEUTROPHIL4.7 X10E9/LNormal1.5-6.6Pro[facility] Comment on above:Performed By: #### CBCDanielle CMP, , ####[facility] ([id number])[address] [address] Basophils/100 WBC (Bld)0.5 %NormalProPomerene Hospitalca [facility] Fire HospitalComment on above: Performed By: #### CBCDanielle, CMP, , ####[facility] ([id number])[address], [place] [address]Fkhyelhqquz (Bld) [#/Vol] 0.3 10*3/uLNormal0.0-0.4Pro[facility] HospitalComment on above:Performed By: #### CBCDanielle, CMP, , ####[facility] ([id number])[address] [address], [place] [address]Owhfdsaxfan/100 WBC (Bld) 4.4 %NormalProPomerene Hospitalca Angel Fire HospitalComment on above:Performed By: #### CBCDanielle CMP, , ####[facility] ([id number])[address] [address], [place] [address]Zttffpyqkdq distribution width (RBC) [Ratio] 16.8 %High11.5-15.0ProP[facility] Hospitalca [facility] HospitalComment on above:Performed By: #### CBCA, CMP, , ####[facility] ([id number])[address], [place] [address]Klvxusrtmp (Bld) [Volume fraction]23.6 %Low 35-47Pro[facility] Childers HospitalComment on above:Performed By: #### CBCA, CMP, , ####[facility] ([id number])[address], [place] [address]Jysauyitik (Bld) [Mass/Vol]7.8 g/dLLow11.7-15.5 [facility] HospitalComment on above:Performed By: #### CBCA, CMP, , ####[facility] ([id number])[address], [address], [place] [address]Mydrsdaowlu (Bld) [#/Vol]1.5 10*3/uLNormal1.0-3.5[facility] HospitalComment on above:Performed By: #### CBCA, CMP, , ####[facility] ([id number])[address], [place] [address]Wgmfipoqakb/100 WBC (Bld)19.4 %NormalProMedica Angel Fire HospitalComment on above:Performed By: #### CBCA, CMP, , ####[facility] ([id number])[address] [address], [place] [address]XKY (RBC) [Entitic mass]27.8 yhSovsjy27-03AbdPefzoq Angel Fire HospitalComment on above: Performed By: #### CBCA, CMP, , ####[facility] ([id number])[address], [address], [place] [address]JICP (RBC) [Mass/Vol]32.9 g/wHLyzsof67-91HydVnajyy Childers HospitalComment on above:Performed By: #### CBCA, CMP, , ####[facility] ([id number])[address], [address] [address]QJF (RBC) [Entitic vol]84 zPSbxbtq66-386 [facility]ers HospitalComment on above:Performed By: #### CBCDanielle, CMP, , ####[facility] ([id number])[address], [address], [place] [address]Zeglukybx (Bld) [#/Vol]1.1 10*3/uLHigh0-0.9[facility] Childers HospitalComment on above:Performed By: #### CBCDanielle, CMP, , ####[facility] ([id number])[address], [address], [place] [address]Ithaxeenh/100 WBC (Bld)14.7 %NormalProMedica Childers HospitalComment on above:Performed By: #### CBCDanielle, CMP, , ####[facility] ([id number])[address], [address], [place] [address]Igvgigsgjxi/100 WBC (Bld)61.0 %NormalProMedica Childers HospitalComment on above:Performed By: #### CBCDanielle, CMP, , ####[facility] ([id number])[address], [address], [place] [address]Ujpoyhrj mean volume (Bld) [Entitic vol]8.4 fLNormal7-12[facility]ers HospitalComment on above:Performed By: #### CBCA, CMP, , ####[facility] ([id number])[address], [address], [place] [address]Ewwqatgdk (Bld) [#/Vol]243 10*3/mFHqlyqq343-402TqvLfffqm Childers HospitalComment on above:Performed By: #### CBCA, CMP, , ####[facility] ([id number])[address], [place] [address]SYO COUNT2.80 X10E12/LLow3.80-5.20[facility] Childers HospitalComment on above:Performed By: #### RUBEN MORALES, , ####[facility] ([id number])[address], [address] [address]PKZ (Bld) [#/Vol]7.8 10*3/uLNormal4.0-11.0[facility]ers HospitalComment on above:Performed By: #### RUBEN MORALES, , ####[facility] ([id number])[address], [address], [place] [address]FTJJTJFGQKGUE METABOLIC PANELon 54-76-7849Evxhugn [Mass/Vol]3.2 g/dLNormal3.2-5.3[facility] Fire HospitalComment on above:Performed By: #### RUBEN MORALES, , ####[facility] ([id number])[address], [address], [place] [address]SAC [Catalytic activity/Vol]98 U/NIesaot86-417WegAfitnh [facility] Comment on above:Performed By: #### RUBEN MORALES, , ####[facility] ([id number])[address], [address], [place] [address]ECU [Catalytic activity/Vol]33 U/LHigh0-31[facility] HospitalComment on above: Performed By: #### RUBEN MORALES, , ####[facility] ([id number])[address], [address], [place] [address]Loeio gap [Moles/Vol]7 mmol/LNormal5-15ProPomerene Hospitalca Childers HospitalComment on above:Performed By: #### RUBEN MORALES, ####[facility] ([id number])[address], [address], [place] [address]PCC [Catalytic activity/Vol]32 U/LNormal0-41 [facility] HospitalComment on above:Performed By: #### RUBEN MORALES, , ####[facility] ([id number])[address], [address], [place] [address]Aznxmtixc [Mass/Vol]0.2 mg/dLLow0.3-1.2[facility] HospitalComment on above:Performed By: #### RUBEN MORALES, ####[facility] ([id number])[address], [address], [place] [address]Biuqink [Mass/Vol]9.1 mg/dLNormal8.5-10.5[facility] HospitalComment on above:Performed By: #### RUBEN MORALES, ####[facility] ([id number])[address], [address], [place] [address]Gcqfinci [Moles/Vol]104 mmol/WQsnmdz40-782RacCvuwnx [place] HospitalComment on above: Performed By: #### RUBEN MORALES, ####[facility] ([id number])[address], [address], [place] [address]VK4 [Moles/Vol]27 mmol/L Lgckbh09-17LtcHmywop [facility]ers HospitalComment on above:Performed By: #### RUBEN MORALES, ####[facility] ([id number])[address], [address], [place] [address]Bbrfxqtqbh [Mass/Vol]1.16 mg/dLHigh0.40-1.00 [facility] HospitalComment on above:Result Comment: METHOD TRACEABLE TO IDMS STANDARDPerformed By: #### RUBEN MORALES, ####[facility] ([id number])[address] [address] [address]AHH/1.73 sq M.predicted among non-blacks MDRD (S/P/Bld) [Vol rate/Area]48 mL/min/{1.73_m2} Low>59[facility]ers HospitalComment on above:Result Comment: Reported eGFR is based on theCKD-EPI 2020 equation that doesnot use a race coefficient.Performed By: #### RUBEN MORALES, ####[facility] ([id number])[address] [address], [place] [address]Yiupsku [Mass/Vol]159 mg/dL Zzpj52-46KlaQhjyif [facility] HospitalComment on above:Performed By: #### RUBEN MORALES, ####[facility] ([id number])[address] [address], [place] [address]Ynhzkjwzd [Moles/Vol]4.3 mmol/LNormal3.5-5.0Pro[facility] HospitalComment on above:Performed By: #### RUBEN MORALES, ####[facility] ([id number])[address] [address], [place] [address]Rbfoapv [Mass/Vol]6.2 g/dLNormal6.0-8.0Pro[facility] HospitalComment on above:Performed By: #### RUBEN MORALES, ####[facility] ([id number])[address] [address], [place] [address]Klixue [Moles/Vol]138 mmol/KPbzdsu108-120BckLwbzpz [facility]ers HospitalComment on above: Performed By: #### RUBEN MORALES, , 06495-2 ####[facility] ([id number])[address], [address] [place] [address]Edsz nitrogen [Mass/Vol]23 mg/dLNormal5-27[facility] HospitalComment on above:Performed By: #### RUBEN MORALES, , ####[facility] ([id number])[address], [address] [place] [address]Lgccfff Glucometer (BldC) [Mass/Vol]on 90-24-3467Afgsscl [Mass/Vol]237 mg/wSZyoy66-65WbrYmzpxp Childers HospitalGlucose [Mass/Vol]162 mg/dGJtwh89-94JumQaeryz [facility]ers HospitalGlucose [Mass/Vol]174 mg/dL Cjzq86-85JuyGqtgxj [facility]ers HospitalGlucose [Mass/Vol]149 mg/nJCvwn87-04UppLdpgtu Childers HospitalMAGNESIUMon 92-14-1552Ehrtonots [Mass/Vol]2.2 mg/dLNormal1.8-2.6 [facility] HospitalComment on above:Performed By: #### 44069-5 ####[facility] ([id number])[address], [address] [place] [address] Magnesium [Mass/Vol]1.7 mg/dLLow1.8-2.6[facility] HospitalComment on above:Performed By: #### RUBEN MORALES, , 68927-6 ####[facility] ([id number])[address], [address] [place] [address]Jdxthvixsp [Mass/Vol]on 85-29-1501EWLELEAGEG68.4 ug/mLNormal5.0-40.0[facility] Chiledrs HospitalComment on above:Result Comment: Peak 30-40 ug/mLTrough 5-20 ug/ml Performed By: #### RUBEN MORALES, , 0300[address]-4 ####[facility] ([id number])[address], [address], [place] [address]YYE AND AUTO DIFFon 96-07-5169ESKPULMK BASOPHIL0.0 X10E9/LNormal0.0-0.2[facility] HospitalComment on above:Performed By: #### CBCDanielle CMP, ####[facility] ([id number])[address], [address], [place] [address]DPVRRRXK NEUTROPHIL3.3 X10E9/LNormal1.5-6.6[facility] HospitalComment on above:Performed By: #### CARMEN CMP, ####[facility] ([id number])[address], [address], [place] [address] Basophils/100 WBC (Bld)0.7 %NormalProMedica Childers HospitalComment on above: Performed By: #### CBCDanielle CMP, 54602-4 ####[facility] ([id number])[address], [address], [place] [address]Ctzrmjylgcg (Bld) [#/Vol] 0.2 10*3/uLNormal0.0-0.4[facility] HospitalComment on above:Performed By: #### CBCA, CMP, ####[facility] ([id number])[address], [address], [place] [address]Hvlxbcgxwub/100 WBC (Bld)4.0 %Normal [facility] HospitalComment on above:Performed By: #### CBCA CMP, ####[facility] ([id number])[address], [address], [place] [address]Hmqhliflooh distribution width (RBC) [Ratio]16.9 %High11.5-15.0[facility] HospitalComment on above:Performed By: #### CBCA, CMP, ####[facility] ([id number])[address], [address], [place] [address] Hematocrit (Bld) [Volume fraction]21.0 %Qew31-95RmyWzwqyh [facility]ers HospitalComment on above:Performed By: #### CBCA, CMP, ####[facility] ([id number])[address], [address], [place] [address]Igjmuvjgey (Bld) [Mass/Vol] 7.0 g/dLLow11.7-15.5[facility] HospitalComment on above:Performed By: #### CBCA, CMP, ####[facility] ([id number])[address], [address], [place] [address]Ggmxtfsdzhm (Bld) [#/Vol]1.6 10*3/uLNormal1.0-3.5 [facility] HospitalComment on above:Performed By: #### CBCA, CMP, ####[facility] ([id number])[address], [address], [place] [address]Imxgoeaphga/100 WBC (Bld)27.0 %NormalProMedica Childers HospitalComment on above:Performed By: #### CBCA, CMP, ####[facility] ([id number])[address] [address], [place] [address]DJP (RBC) [Entitic mass] 27.8 llAuujnu42-86EfjBppllf [facility] HospitalComment on above:Performed By: #### CBCA, CMP, ####[facility] ([id number])[address], [address], [place] [address]RYVQ (RBC) [Mass/Vol]33.2 g/dALvcmey27-26VmjUqhpvn [facility] HospitalComment on above:Performed By: #### CBCA, CMP, ####[facility] ([id number])[address], [address], [place] [address]ZZZ (RBC) [Entitic vol]84 fGVpbero74-723ApqBshbvz [facility] HospitalComment on above: Performed By: #### CBCA, CMP, ####[facility] ([id number])[address], [address] [place] [address]Uojcmzhoi (Bld) [#/Vol]0.8 10*3/uLNormal0-0.9[facility] HospitalComment on above:Performed By: #### CBCA, CMP, ####[facility] ([id number])[address], [address] [place] [address]Zgxzoikoo/100 WBC (Bld)13.9 %NormalProMedica Childers HospitalComment on above:Performed By: #### CBCA, CMP, ####[facility] ([id number])[address], [address] [place] [address] Neutrophils/100 WBC (Bld)54.4 %NormalProMedica Childers HospitalComment on above: Performed By: #### CBCA, CMP, ####[facility] ([id number])[address], [address] [place] [address]Kizspphx mean volume (Bld) [Entitic vol]8.1 fLNormal7-12[facility] HospitalComment on above:Performed By: #### CBCA, CMP, ####[facility] ([id number])[address], [address], [place] [address]Ajrcattmi (Bld) [#/Vol]189 10*3/uLNormal 150-450Pro[facility] HospitalComment on above:Performed By: #### RUBEN MORALES, ####[facility] ([id number])[address], [address] [place] [address]DQG COUNT2.50 X10E12/LLow3.80-5.20[facility] Comment on above:Performed By: #### RUBEN MORALES, ####[facility] ([id number])[address], [address] [place] [address]NSZ (Bld) [#/Vol]6.0 10*3/uLNormal4.0-11.0[facility] HospitalComment on above: Performed By: #### RUBEN MORALES, ####[facility] ([id number])[address], [address], [place] [address]SFKLZTBQWOJIM METABOLIC PANELon 02-43-5285Navwpdk [Mass/Vol]2.8 g/dLLow3.2-5.3PMer[facility] Comment on above:Performed By: #### RUBEN MORALES, ####[facility] ([id number])[address], [address] [address]RYD [Catalytic activity/Vol]90 U/CSyefcl80-672JhwZinpjk [place] HospitalComment on above: Performed By: #### CBCDanielle, CMP, ####[facility] ([id number])[address], [address], [place] [address]CFQ [Catalytic activity/Vol]21 U/LNormal0-31PKettering Health Greene Memorial HospitalComment on above:Performed By: #### CARMEN CMP, ####[facility] ([id number])[address], [address], [place] [address]Jjtbz gap [Moles/Vol]5 mmol/LNormal5-15 [facility] HospitalComment on above:Performed By: #### RUBEN MORALES, ####[facility] ([id number])[address], [address], [place] [address]QNR [Catalytic activity/Vol]24 U/LNormal0-41[facility] Comment on above:Performed By: #### RUBEN MORALES, ####[facility] ([id number])[address], [address], [place] [address]Bsdurrfmn [Mass/Vol]0.3 mg/dLNormal0.3-1.2[facility] HospitalComment on above: Performed By: #### RUBEN MORALES, ####[facility] ([id number])[address], [address], [place] [address]Lklvkup [Mass/Vol]8.4 mg/dL Low8.5-10.5[facility] HospitalComment on above:Performed By: #### RUBEN MORALES, ####[facility] ([id number])[address], [address], [place] [address]Apiasmby [Moles/Vol]107 mmol/SKdlzdo88-207MoeYpcxnj [facility] HospitalComment on above:Performed By: #### RUBEN MORALES, ####[facility] ([id number])[address], [address], [place] [address]QQ4 [Moles/Vol]28 mmol/XWvfhuf28-31OpvKgdyhz [facility] HospitalComment on above: Performed By: #### RUBEN MORALES, ####[facility] ([id number])[address], [address], [place] [address]Paczpbudfp [Mass/Vol]1.23 mg/dLHigh0.40-1.00[facility] HospitalComment on above:Result Comment: METHOD TRACEABLE TO IDMS STANDARDPerformed By: #### RUBEN MORALES, ####[facility] ([id number])[address], [address] [address]EFL/1.73 sq M.predicted among non-blacks MDRD (S/P/Bld) [Vol rate/Area]45 mL/min/{1.73_m2}Low>59[facility] HospitalComment on above:Result Comment: Reported eGFR is based on theCKD-EPI 2020 equation that doesnot use a race coefficient.Performed By: #### RUBEN MORALES, ####[facility] ([id number])[address] [address], [place] [address]Pgdtaig [Mass/Vol]129 mg/dBDeul04-05BlrBsnpke [facility] HospitalComment on above:Performed By: #### RUBEN MORALES, ####[facility] ([id number])[address] [address], [place] [address]Fckpnaiwx [Moles/Vol]4.4 mmol/LNormal3.5-5.0[facility] HospitalComment on above:Performed By: #### RUBEN MORALES, ####[facility] ([id number])[address] [address] [address] Protein [Mass/Vol]5.6 g/dLLow6.0-8.0[facility] HospitalComment on above: Performed By: #### RUBEN MORALES, ####[facility] ([id number])[address] [address], [place] [address]Ocgwrp [Moles/Vol]140 mmol/CEgbfhx400-619NauLaojhw [facility] HospitalComment on above:Performed By: #### RUBEN MORALES, ####[facility] ([id number])[address], [address] [place] [address]Xqdy nitrogen [Mass/Vol]23 mg/dLNormal5-27Pro[facility] HospitalComment on above:Performed By: #### CARMEN [facility], [address]-4 ####[facility] ([id number])[address] [facility], [address] [place] [address] Glucose Glucometer (BldC) [Mass/Vol]on 73-40-5190Tlcjdae [Mass/Vol]291 mg/dLHigh 65-99ProSumma Health [facility] CampusGlucose [Mass/Vol]238 mg/xGGkjc45-58EgkLllndl [place] HospitalGlucose [Mass/Vol]146 mg/eXOtln18-47BjxEhuiwnSumma Health Akron Campus MAGNESIUMon 13-83-8167Vleqvwdow [Mass/Vol]1.8 mg/dLNormal1.8-2.6Pro[facility] HospitalComment on above:Performed By: #### CARMEN [facility], [address]-0 ####[facility] ([id number])[address], [address] [place] [address] Vancomycin [Mass/Vol]on 68-82-2768DNTDHYOFAK60.8 ug/mLNormal5.0-40.0ProSumma Health Akron CampusComment on above:Result Comment: Peak 30-40 ug/mLTrough 5-20 ug/ml Performed By: #### 74438-7 ####[facility] ([id number])[address], [address] [address]VK SHUNT SERIESon 58-75-5246RV SHUNT SERIESNormalProSumma Health Ak[facility] Campus CBC AND AUTO DIFFon 97-76-6377JHQNXMEO BASOPHIL0.0 X10E9/LNormal0.0-0.2[facility] HospitalComment on above:Performed By: #### CARMEN , CMP ####[facility] ([id number])[address] [address]ARTOOGQQ NEUTROPHIL6.2 X10E9/LNormal1.5-6.6ProPomerene Hospitalca [facility] Comment on above:Performed By: #### CARMEN , CMP ####[facility] ([id number])[address], [place] [address]Jvadsvzow/100 WBC (Bld)0.5 %NormalProPomerene Hospitalca [facility] Fire HospitalComment on above:Performed By: #### CARMEN , CMP ####[facility] ([id number])[address], [address], [place] [address]Awcysgepfgr (Bld) [#/Vol]0.2 10*3/uLNormal0.0-0.4 [facility] HospitalComment on above:Performed By: #### CARMEN , CMP ####[facility] ([id number])[address], [address], [place] [address]Sjrrqlymoge/100 WBC (Bld)2.3 %NormalProPomerene Hospitalca [facility] Fire HospitalComment on above:Performed By: #### CARMEN , CMP ####[facility] ([id number])[address], [place] [address]Fouzjeoaegd distribution width (RBC) [Ratio]16.8 %High11.5-15.0ProPomerene Hospitalca [facility]ers HospitalComment on above: Performed By: #### CARMEN, , CMP ####[facility] ([id number])[address], [place] [address]Osxuyokhct (Bld) [Volume fraction]23.1 %Mhn44-23AneUgiuut [facility]ers HospitalComment on above:Performed By: #### CARMEN, , CMP ####[facility] ([id number])[address], [address], [place] [address]Sgzfspxyso (Bld) [Mass/Vol]7.5 g/dLLow 11.7-15.5PKettering Health Greene Memorial HospitalComment on above:Performed By: #### CARMEN, , CMP ####[facility] ([id number])[address], [address], [place] [address]Fjtjnnzhqdr (Bld) [#/Vol]1.1 10*3/uLNormal1.0-3.5PKettering Health Greene Memorial HospitalComment on above:Performed By: #### CARMEN, , CMP ####[facility] ([id number])[address], [address] [place] [address] Lymphocytes/100 WBC (Bld)12.9 %NormalProGrand Lake Joint [facility] HospitalComment on above: Performed By: #### CARMEN, , CMP ####[facility] ([id number])[address], [address] [place] [address]ABT (RBC) [Entitic mass] 27.6 lgIbencp92-30JkvBedsqf [facility] HospitalComment on above:Performed By: #### CARMEN, , CMP ####[facility] ([id number])[address], [place] [address]ZVZJ (RBC) [Mass/Vol]32.5 g/iVLzdieo60-76NwmYzrmbt [place] HospitalComment on above:Performed By: #### CARMEN, , CMP ####[facility] ([id number])[address], [place] [address]YOT (RBC) [Entitic vol]85 qCXbtova81-358BmiApmuue [facility] HospitalComment on above: Performed By: #### CARMEN, , CMP ####[facility] ([id number])[address], [address], [place] [address]Scodbzisu (Bld) [#/Vol]1.1 10*3/uLHigh0-0.9ProMedica Childers HospitalComment on above:Performed By: #### CARMEN, , CMP ####[facility] ([id number])[address], [place] [address]Dkshhdvze/100 WBC (Bld)13.0 %NormalProMedica Childers HospitalComment on above:Performed By: #### CARMEN, , CMP ####[facility] ([id number])[address], [address], [place] [address] Neutrophils/100 WBC (Bld)71.3 %NormalProMedica Childers HospitalComment on above: Performed By: #### CARMEN, , CMP ####[facility] ([id number])[address] [place] [address]Rqecyjlm mean volume (Bld) [Entitic vol]7.9 fLNormal7-12ProMedica Childers HospitalComment on above:Performed By: #### CARMEN, , CMP ####[facility] ([id number])[address], [place] [address]Uatwzeygf (Bld) [#/Vol]202 10*3/uLNormal 150-450ProMedica Childers HospitalComment on above:Performed By: #### CARMEN, , CMP ####[facility] ([id number])[address], [address] [place] [address]FUK COUNT2.72 X10E12/LLow3.80-5.20[facility] Comment on above:Performed By: #### CARMEN, , CMP ####[facility] ([id number])[address], [address] [address]AWV (Bld) [#/Vol]8.8 10*3/uLNormal4.0-11.0ProMedica Childers HospitalComment on above: Performed By: #### CARMEN , CMP ####[facility] ([id number])[address], [address], [place] [address]RCSRCHMGTGCHO METABOLIC PANELon 46-05-8405Dsnkoka [Mass/Vol]3.0 g/dLLow3.2-5.3PKet[facility] Comment on above:Performed By: #### CARMEN, , CMP ####[facility] ([id number])[address], [address], [place] [address]HRG [Catalytic activity/Vol]94 U/PUofqbr75-090OehPaulgn Childers HospitalComment on above: Performed By: #### CARMEN , CMP ####[facility] ([id number])[address], [address], [place] [address]XVR [Catalytic activity/Vol]31 U/LNormal0-31[facility] Angel Fire HospitalComment on above:Performed By: #### CARMEN , CMP ####[facility] ([id number])[address], [address], [place] [address]Ezoth gap [Moles/Vol]8 mmol/LNormal5-15 [facility] Childers HospitalComment on above:Performed By: #### CARMEN, , CMP ####[facility] ([id number])[address], [address], [place] [address]ANP [Catalytic activity/Vol]42 U/LHigh0-41ProMedica Childers HospitalComment on above:Performed By: #### CARMEN , CMP ####[facility] ([id number])[address] [address]Mnejqgpsb [Mass/Vol]0.3 mg/dLNormal0.3-1.2PKettering Health Greene Memorial HospitalComment on above:Performed By: #### CARMEN, , CMP ####[facility] ([id number])[address] [address]Nszmozv [Mass/Vol]8.6 mg/dLNormal8.5-10.5PKettering Health Greene Memorial HospitalComment on above:Performed By: #### CARMEN, , CMP ####[facility] ([id number])[address] [address] Chloride [Moles/Vol]102 mmol/FTaizvt97-892TadAptcze [place] HospitalComment on above:Performed By: #### CARMEN, , CMP ####[facility] ([id number])[address] [address]MS5 [Moles/Vol]27 mmol/L Wwimja31-37YlvRfqdpl [place] HospitalComment on above:Performed By: #### CARMEN, , CMP ####[facility] ([id number])[address] [address], [place] [address]Jjdpztanuo [Mass/Vol]1.44 mg/dLHigh0.40-1.00ProGrand [facility] HospitalComment on above:Result Comment: METHOD TRACEABLE TO IDMS STANDARD Performed By: #### CARMEN, , CMP ####[facility] ([id number])[address] [address]BGS/1.73 sq M.predicted among non-blacks MDRD (S/P/Bld) [Vol rate/Area]37 mL/min/{1.73_m2}Low>59 Pro[facility]ica Childers HospitalComment on above:Result Comment: Reported eGFR is based on theCKD-EPI 2020 equation that doesnot use a race coefficient.Performed By: #### CARMEN , CMP ####[facility] ([id number])[address], [address], [place] [address]Kloxttf [Mass/Vol]132 mg/cWBfxw64-33 [facility]uffton HospitalComment on above:Performed By: #### CARMEN , CMP ####[facility] ([id number])[address], [address], [place] [address]Zhtukfkep [Moles/Vol]4.5 mmol/LNormal3.5-5.0[facility] Comment on above:Performed By: #### CARMEN , CMP ####[facility] ([id number])[address], [address], [place] [address]Tzpxevz [Mass/Vol]6.1 g/dLNormal6.0-8.0ProSumma Health Akron CampusComment on above: Performed By: #### CARMEN , CMP ####[facility] ([id number])[address], [address], [place] [address]Gjxdnx [Moles/Vol]137 mmol/JBugmnt922-654RmaEzizxn [place] HospitalComment on above:Performed By: ###Adeline MORALES , CMP ####[facility] ([id number])[address], [address], [place] [address]Mxgn nitrogen [Mass/Vol]27 mg/dLNormal5-27ProSumma Health Akron CampusComment on above:Performed By: #### CARMEN , CMP ####[facility] ([id number])[address], [address], [place] [address] Glucose Glucometer (BldC) [Mass/Vol]on 93-39-9128Zqiysji [Mass/Vol]244 mg/dLHigh 65-99ProSumma Health Akron CampusGlucose [Mass/Vol]127 mg/fUVmlo97-83AfuAlcgxn [place] HospitalMAGNESIUMon 31-30-4471Smcjluwyw [Mass/Vol]1.9 mg/dLNormal1.8-2.6 [facility] HospitalComment on above:Performed By: #### CBCA, 68890-3, CMP ####[facility] ([id number])[address], [address] [place] [address]Wtmnmyefmf [Mass/Vol]on 84-25-2919ENJWUTBECJ5.8 ug/mLNormal5.0-40.0 [facility] HospitalComment on above:Result Comment: Peak 30-40 ug/mLTrough 5-20 ug/ml Performed By: #### 99397-6 ####[facility] ([id number])[address], [address] [place] [address]509KORTN CULTUREon 31-99-6606Eddyqxjv identified Aer cx Nom (Bld)SPECIMEN NOTES SUBOPTIMAL VOLUME OF BLOOD COLLECTED, RESULTS MAY BE AFFECTED. CULTURE RESULTS STAPHYLOCOCCUS AUREUS METHICILLIN RESISTANT FOR SUSCEPTIBILITY, SEE PREVIOUS REPORT.Berger HospitalComment on above:Performed By: #### 62090-4 ####[facility] ([id number])[address], [address] [place] [address]Dyffyuoo identified Aer cx Nom (Bld)SPECIMEN NOTES SUBOPTIMAL VOLUME OF BLOOD COLLECTED, RESULTS MAY BE AFFECTED. CULTURE RESULTS STAPHYLOCOCCUS AUREUS METHICILLIN RESISTANT FOR SUSCEPTIBILITY, SEE PREVIOUS REPORT.Berger HospitalComment on above:Performed By: #### 54555-0 ####[facility] ([id number])[address], [address] [place] [address] 49514KZL AND AUTO DIFFon 36-81-2669MIKDEXPL BASOPHIL0.0 X10E9/LNormal0.0-0.2P[facility] Comment on above:Performed By: #### CBCA, CMP, 46162-4, ####[facility] ([id number])[address] [place] [address]YEGNNSGA NEUTROPHIL8.4 X10E9/LHigh1.5-6.6ProBaptist Saint Anthony'S HospitalComment on above:Performed By: #### CBCA, CMP, 31453-6, ####[facility] ([id number])[address] [place] [address], [place] [address] Basophils/100 WBC (Bld)0.2 %NormalProBaptist Saint Anthony'S HospitalComment on above: Performed By: #### CBCA, CMP, 10361-7, ####[facility] ([id number])[address] [place] [address] 43289Inhvtjqcjkp (Bld) [#/Vol]0.0 10*3/uLNormal0.0-0.4ProBaptist Saint Anthony'S HospitalComment on above: Performed By: #### CBCA, CMP, 22379-1, ####[facility] ([id number])[address] [place] [address] 68283Skwkxplqngy/100 WBC (Bld)0.3 %NormalProBaptist Saint Anthony'S HospitalComment on above:Performed By: #### CBCA, CMP, 68440-5, ####[facility] ([id number])[address] [place] [address] 23331Qhkdfawqlpm distribution width (RBC) [Ratio]16.8 %High11.5-15.0ProBaptist Saint Anthony'S HospitalComment on above: Performed By: #### CBCA, CMP, 44253-8, ####[facility] ([id number])[address] [place] [address] 10775Oautloublh (Bld) [Volume fraction]22.6 %Nwd51-25PwyDgaivxBlanchard Valley Health SystemComment on above: Performed By: #### CBCA, CMP, 12456-2, ####[facility] ([id number])[address] [place] [address] 35585Mzumxxzuma (Bld) [Mass/Vol]7.4 g/dLLow11.7-15.5PMercy HealthComment on above: Performed By: #### CBCDanielle, CMP, 01391-8, ####[facility] ([id number])[address] [place] [address] 97649Wdkrzweyvpz (Bld) [#/Vol]1.3 10*3/uLNormal1.0-3.5PMercy HealthComment on above: Performed By: #### CBCDanielle, CMP, 31354-8, ####[facility] ([id number])[address] [place] [address] 03776Cpqffyzmtea/100 WBC (Bld)12.2 %NormalProBaptist Saint Anthony'S HospitalComment on above:Performed By: #### CBCA, CMP, 51206-6, ####[facility] ([id number])[address] [place] [address] 74991PYG (RBC) [Entitic mass]27.9 pg Zkwzwa28-00QahJyshruBlanchard Valley Health SystemComment on above:Performed By: #### CBCA, CMP, 33897-2, ####[facility] ([id number])[address] [place] [address] 07361VMVE (RBC) [Mass/Vol]33.0 g/xVVtrxny01-19 [facility] HospitalComment on above:Performed By: #### CBCA, CMP, 40912- 0, ####[facility] ([id number])[address] [place] [address] 92652IKM (RBC) [Entitic vol]84 rHZhnfpw83-590PumRybwax Fremont HospitalComment on above:Performed By: #### CBCA, CMP, 64660-5, ####[facility] ([id number])[address] [place] [address] 03923Nxqwnfvvs (Bld) [#/Vol]0.9 10*3/uLNormal0-0.9ProBaptist Saint Anthony'S HospitalComfresenius medical care at [facility] on above:Performed By: #### CBCA, CMP, 61445-3, ####[facility] ([id number])[address] [place] [address] 77785Mpsibnjme/100 WBC (Bld)8.1 %NormalBlanchard Valley Health SystemComment on above:Performed By: #### CBCA, CMP, 62333-5, ####[facility] ([id number])[address] [place] [address] 79219Otzrsrbeppj/100 WBC (Bld)79.2 %NormalBlanchard Valley Health SystemComment on above:Performed By: #### CBCA, CMP, 46597-0, ####[facility] ([id number])[address] [place] [address] 49607Kyyzqsov mean volume (Bld) [Entitic vol]7.7 fLNormal7-12 [facility] SystemComment on above:Performed By: #### CBCA, CMP, 57151- 0, ####[facility] ([id number])[address] [place] [address] 83288Sclljacgy (Bld) [#/Vol]208 10*3/zSRpvzae287-003 [facility] Medical CenterComment on above:Performed By: #### CARMEN, CMP, 53571- 0, ####[facility] ([id number])[address] [place] [address] 73158HBF COUNT2.67 X10E12/LLow3.80-5.20ProBaptist Saint Anthony'S HospitalComment on above:Performed By: #### CARMEN CMP, 78465-0, ####[facility] ([id number])[address] [place] [address] 23120REP (Bld) [#/Vol]10.5 10*3/uLNormal4.0-11.0ProBaptist Saint Anthony'S HospitalComment on above:Performed By: #### RUBEN MORALES, 96034-2, ####[facility] ([id number])[address] [place] [address] 72296SHGXFJTKSCXQQ METABOLIC PANELon 77-37-8257Cvbjkhy [Mass/Vol]2.8 g/dLLow3.2-5.3PMercy HealthComment on above:Performed By: #### RUBEN MORALES, 01327-7, ####[facility] ([id number])[address] [place] [address] 30393JZK [Catalytic activity/Vol]88 U/SKejskf20-086ObuZakorxBaptist Saint Anthony'S HospitalComment on above: Performed By: #### CARMEN CMP, 46643-7, ####[facility] ([id number])[address] [place] [address] 30856QAY [Catalytic activity/Vol]21 U/LNormal0-31ProMedMenlo Park VA HospitalComment on above: Performed By: #### CARMEN CMP, 92448-9, ####[facility] ([id number])[address] [place] [address], [place] [address]Ugurn gap [Moles/Vol]9 mmol/LNormal5-15ProBaptist Saint Anthony'S HospitalComment on above: Performed By: #### RUBEN MORALES, 90240-8, ####[facility] ([id number])[address] [place] [address], [place] [address]HME [Catalytic activity/Vol]27 U/LNormal0-41ProBaptist Saint Anthony'S HospitalComment on above: Performed By: #### RUBEN MORALES, 04058-3, ####[facility] ([id number])[address] [place] [address], [place] [address]Thjwymuaj [Mass/Vol]0.3 mg/dLNormal0.3-1.2ProMedMenlo Park VA HospitalComment on above: Performed By: #### RUBEN MORALES, 52174-8, ####[facility] ([id number])[address] [place] [address], [place] [address]Vjxmvsm [Mass/Vol]8.5 mg/dLNormal8.5-10.5PMercy HealthComment on above: Performed By: #### RUBEN MORALES, 88387-6, ####[facility] ([id number])[address] [place] [address], [place] [address]Rpzhlbum [Moles/Vol]99 mmol/GNsuhfz63-262XphCwhrgcBaptist Saint Anthony'S HospitalComment on above: Performed By: #### RUBEN MORALES, 38764-7, ####[facility] ([id number])[address] [place] [address], [place] [address]RQ3 [Moles/Vol]26 mmol/BYlipwz95-95BcpCincbsMercy HealthComment on above:Performed By: #### RUBEN MORALES, 41518-2, 27889-8 ####[facility] ([id number])[address] [place] [address] 23433Bpsmhsseoj [Mass/Vol]1.96 mg/dLHigh 0.40-1.00ProBaptist Saint Anthony'S HospitalComment on above:Result Comment: METHOD TRACEABLE TO IDMS STANDARDPerformed By: #### RUBEN MORALES, 59530-8, ####[facility] ([id number])[address] [place] [address] 98321BHO/1.73 sq M.predicted among non-blacks MDRD (S/P/Bld) [Vol rate/Area]26 mL/min/{1.73_m2}Low>59ProBaptist Saint Anthony'S HospitalComment on above:Result Comment: Reported eGFR is based on theCKD-EPI 2020 equation that doesnot use a race coefficient.Performed By: #### RUBEN MORALES, 28424-2, ####[facility] ([id number])[address] [place] [address] 36291Flgdzkf [Mass/Vol]187 mg/lNLkgy81-39LorWfkvbjBaptist Saint Anthony'S HospitalComment on above:Performed By: #### RUBEN MORALES, 84255-1, 42523-4 ####[facility] ([id number])[address] [place] [address] 33512Cvpkgyhkx [Moles/Vol]4.4 mmol/LNormal3.5-5.0ProBaptist Saint Anthony'S HospitalComment on above:Performed By: #### RUBEN MORALES, 40140-3, ####[facility] ([id number])[address] [place] [address] 62217Mxwkdph [Mass/Vol]6.1 g/dLNormal6.0-8.0ProBaptist Saint Anthony'S HospitalComment on above:Performed By: #### RUBEN MORALES, 93301-2, 95563-1 ####[facility] ([id number])[address] [place] [address] 55287Castsu [Moles/Vol]134 mmol/XFkxuno522-287GalYssvvnBlanchard Valley Health SystemComment on above:Performed By: #### RUBEN MORALES, 61347-3, 92022-8 ####[facility] ([id number])[address] [place] [address] 13629Lejv nitrogen [Mass/Vol]38 mg/dLHigh5-27ProBaptist Saint Anthony'S HospitalComment on above:Performed By: #### RUBEN MORALES, 38665-7, ####[facility] ([id number])[address] [place] [address] 15703MM CHEST WO CONTon 88-52-0818WA CHEST WO CONTNormal [facility]cy Medical CenterGlucose Glucometer (BldC) [Mass/Vol]on 02-14-2025 Glucose [Mass/Vol]161 mg/rQZybz08-88CfiJyjpmjBlanchard Valley Health SystemGlucose [Mass/Vol] 278 mg/oZGdyx05-25OxrKkohvxBlanchard Valley Health SystemLactate (P obed) [Moles/Vol]on 36-37-5106XXIZKNI W/REFLEX1.8 mmol/LNormal0.4-2.0[facility] Comment on above:Result Comment: Result did not trigger repeat Lactate,re-order if needed.Performed By: #### 58127-9 ####[facility] ([id number])[address] [place] [address] 63907SPWJAPKJRnc 14-16-3248Asrwmjmjg [Mass/Vol]2.0 mg/dLNormal1.8-2.6[facility] Comment on above:Performed By: #### RUBEN MORALES, 93580-4, 27879-7 ####[facility] ([id number])[address] [place] [address] 61856Rwzyabwcx Ionized ISE (Bld) [Moles/Vol]on 68-20-6756Mkjkjjlga [Moles/Vol] 0.53 mmol/LNormal0.45-0.74[facility] Health SystemComfresenius medical care at [facility] on above:Result Comment: NEW REFERENCE RANGEPerformed By: #### 32770-9 ####[facility] ([id number])[address] [facility], [address] [place] [address] 41265Exjdqjvljljmo [place] [Mass/Vol]on 30-90-5145PYCTITYUFYBIU63.12 ng/mLHigh<0.05[facility] Health SystemComfresenius medical [facility] on above:Result Comment: NOTE<0.50 ng/mL - Low risk of severe sepsis and/or septic shock.<2.00 ng/mL -Recommend retesting within 6-24 hours.>2.00 ng/mL - High risk of sepsis and/or septic shock.Performed By: #### CBCA, CMP, 63063-1, 93840-0 ####[facility] ([id number])[address] [place], [place] [address]BF CHEST 1 VWon 00-47-6361TN CHEST 1 VW NormalBlanchard Valley Health SystemBLOOD CULTUREon 25-50-2208Tbgznizf identified Aer cx Nom (Bld)CULTURE RESULTS STAPHYLOCOCCUS AUREUS METHICILLIN RESISTANT FOR SUSCEPTIBILITY, SEE PREVIOUS REPORT.Berger HospitalComment on above:Performed By: #### 03275-7 ####[facility] ([id number])[address], [address] [place] [address] 29829Hyoaiudm identified Aer cx Nom (Bld)CULTURE RESULTS STAPHYLOCOCCUS AUREUS METHICILLIN RESISTANT FOR SUSCEPTIBILITY, SEE PREVIOUS REPORT.Berger HospitalComment on above:Performed By: #### 14990-4 ####[facility] ([id number])[address], [address] [place] [address] 37806HGE AND AUTO DIFFon 66-29-4917BDSWUPFQ BASOPHIL0.0 X10E9/LNormal0.0-0.2[facility] Comment on above:Performed By: #### CHRISTINE, 6-4, 16221-9, 8, 2132-07 ####[facility] ([id number])[address], [address] [place] [address] 25683#### CARMEN, 82460-9, CMP ####[facility] ([id number])[address] [place] [address] 56129QQXHDAHX YZLFXENTOR26.1 X10E9/L High1.5-6.6ProBaptist Saint Anthony'S HospitalComment on above:Performed By: #### CHRISTINE, 6-4, 77167-9, 2284-06, 2132-07 ####[facility] ([id number])[facility] [address] [place] [address] 23830#### CARMEN, 48848-2, CMP ####[facility] ([id number])[address] [place] [address] 76667Fteulxjeh/100 WBC (Bld)0.2 %NormalProBaptist Saint Anthony'S HospitalComment on above:Performed By: #### CHRISTINE, 6-4, 68361-6, 2284-06, 2132-07 ####[facility] ([id number])0 [facility] [address] [place] [address] 06577#### CARMEN, 28619-9, CMP ####[facility] ([id number])[address] [place] [address] 47575Ycelmktljow (Bld) [#/Vol]0.0 10*3/uLNormal 0.0-0.4ProBaptist Saint Anthony'S HospitalComment on above:Performed By: #### CHRISTINE, 6- 4, 99627-8, 8, 2132-07 ####[facility] ([id number])[address] [facility], [address] [place] [address] 33482#### CARMEN, 81315-5, CMP ####[facility] ([id number])[address] [place] [address] 06160 Eosinophils/100 WBC (Bld)0.0 %NormalProBaptist Saint Anthony'S HospitalComment on above: Performed By: #### CHRISTINE, 2276-4, 14808-3, 2283-8, 2132-07 ####[facility] ([id number])[address] [facility], [address] [place] [address] 90088#### CARMEN, 88805-9, CMP ####[facility] ([id number])[address] [place] [address] 79340Iauweagelaz distribution width (RBC) [Ratio]16.8 % High11.5-15.0Bl[facility] Health SystemComment on above:Performed By: #### CHRISTINE, 6-4, 21900-9, 8, 2132-07 ####[facility] ([id number])[address] [facility], [address] [place] [address] 21236#### CARMEN, 27513-5, CMP ####[facility] ([id number])[address] [place] [address] 35547Vapqdobxzq (Bld) [Volume fraction]24.2 %Gyu83-14RcoMkqsmrBlanchard Valley Health System Comment on above:Performed By: #### CHRISTINE, 6-4, 46423-2, 2284-06, 2132-07 ####[facility] ([id number])0 [facility], [address] [place] [address] 83447#### CARMEN, 13610-3, CMP ####[facility] ([id number])[address] [place] [address] 54009Xrdlepqwpk (Bld) [Mass/Vol]7.9 g/dLLow 11.7-15.5PMercy HealthComment on above:Performed By: #### SUKIR, 6-4, 83707-3, 2283-8, 2132-07 ####[facility] ([id number])[address], [address] [place] [address] 02586#### CBCDanielle, 37830-8, CMP ####[facility] ([id number])[address] [place] [address] 90768Jpjcaglknca (Bld) [#/Vol]0.4 10*3/uLLow1.0-3.[address] [place] [address] Comment on above:Performed By: #### CHRISTINE, 6-4, 67184-9, 2284-06, 2132-07 ####[facility] ([id number])[address] [facility], [address] [place] [address] 16609#### CBCDanielle, , CMP ####[facility] ([id number])[address] [place] [address] 77932Qbujwmjqmrc/100 WBC (Bld)2.7 % NormalProBaptist Saint Anthony'S HospitalComment on above:Performed By: #### CHRISTINE, 6- 4, 47307-6, 2284-06, 2132-07 ####[facility] ([id number])[address], [address] [place] [address] 44296#### CBCDanielle, , CMP ####[facility] ([id number])[address] [place] [address] 67281APM (RBC) [Entitic mass]27.6 diFzfape24-70OzuJawhlfBaptist Saint Anthony'S HospitalComment on above:Performed By: #### SUKIR, 2276-4, 01136-3, 8, 2132-07 ####[facility] ([id number])[address] [facility], [address] [place] [address] 59394#### CBCA, 33073-3, CMP ####[facility] ([id number])[address] [place] [address] 12250NPJX (RBC) [Mass/Vol]32.8 g/wQZktvky41-66 [facility] SystemComment on above:Performed By: #### CHRISTINE, 6-4, 45678-9, 8, 2132-07 ####[facility] ([id number])[address] [facility], [address] [place] [address] 58530#### CARMEN, 69797-8, CMP ####[facility] ([id number])[address] [place] [address] 65003FLP (RBC) [Entitic vol]84 jWBcypou69-074PcqKnhmhv Mercy Medical CenterComment on above: Performed By: #### CHRISTINE, 2275-4, 90993-1, 2284-06, 2132-07 ####[facility] ([id number])[address] [facility], [address] [place] [address]#### CARMEN, 94158-6, CMP ####[facility] ([id number])[address] [place] [address] 74263Xzwgsyynb (Bld) [#/Vol]0.8 10*3/uLNormal0-0.9 [facility] SystemComment on above:Performed By: #### CHRISTINE, 6-4, 92563-5, 2284-06, 2132-07 ####[facility] ([id number])[address] [facility], [address] [place] [address]#### CARMEN, 70357-0, CMP ####[facility] ([id number])[address] [place] [address] 27539 Monocytes/100 WBC (Bld)5.4 %NormalProBaptist Saint Anthony'S HospitalComment on above: Performed By: #### SUKIR, 6-4, 38992-9, 8, 2132-07 ####[facility] ([id number])[address], [address] [place] [address]#### CARMEN, 23003-5, CMP ####[facility] ([id number])[address] [place] [address] 97506Qxqqjkccnor/100 WBC (Bld)91.7 %NormalProMedica Mercy Medical CenterComment on above:Performed By: #### SUKIR, 6-4, 38724-4, , 2132-07 ####[facility] ([id number])[address], [address] [place] [address]#### CARMEN, 35968-4, CMP ####[facility] ([id number])[address] [place] [address] 91056Cjghijmc mean volume (Bld) [Entitic vol]7.9 fLNormal7-12ProMedica Mercy Medical CenterComment on above: Performed By: #### CHRISTINE, 6-4, 32782-5, 2284-06, 2132-07 ####[facility] ([id number])[address], [address] [place] [address]#### CARMEN, 20094-4, CMP ####[facility] ([id number])[address] [place] [address] 31101Urkwoiovo (Bld) [#/Vol]273 10*3/pVGbghcv407-364 [facility] Mercy Medical CenterComment on above:Performed By: #### FEPR, 6-4, 36710-6, 2284-06, 2132-07 ####[facility] ([id number])[address], [address] [place] [address]#### CARMEN, 35514-4, CMP ####[facility] ([id number])[address] [place] [address] 08529AOS COUNT2.87 X10E12/LLow3.80-5.20ProBaptist Saint Anthony'S HospitalComment on above: Performed By: #### CHRISTINE, 6-4, 19385-5, 2283-8, 2132-07 ####[facility] ([id number])[address] [facility], [address] [place] [address]#### CARMEN, 91622-8, CMP ####[facility] ([id number])[address] [place] [address] 45525UXA (Bld) [#/Vol]14.3 10*3/uLHigh4.0-11.0ProBaptist Saint Anthony'S HospitalComment on above:Performed By: #### CHRISTINE, 6-4, 36886-7, , 2132-07 ####[facility] ([id number])[address] [facility], [address] [place] [address]#### CARMEN, 51962-5, CMP ####[facility] ([id number])[address] [place] [address] 22037ONBVNFCUDWJHC METABOLIC PANELon 04-07-6562[place] [Mass/Vol]3.0 g/dLLow3.2-5.3ProMedica Mercy Medical CenterComment on above:Performed By: #### CHRISTINE, 6-4, 63591-2, , 2132-07 ####[facility] ([id number])[address] [facility], [address] [place] [address] 66086#### CARMEN, 96746-4, CMP ####[facility] ([id number])[address] [place] [address] 19776NRA [Catalytic activity/Vol]104 U/DVnzrtg47-405NcxEckntp Effingham HospitalComment on above: Performed By: #### CHRISTINE, 6-4, 46358-9, 2283-8, 2132-07 ####[facility] ([id number])[address] [facility], [address] [place] [address]#### CARMEN, 07874-3, CMP ####[facility] ([id number])[address] [place] [address] 36124QJP [Catalytic activity/Vol]14 U/LNormal0-31 [facility] SystemComment on above:Performed By: #### CHRISTINE, 6-4, 91231-8, 8, 2132-07 ####[facility] ([id number])[address] [facility], [address] [place] [address]#### CARMEN, 60566-7, CMP ####[facility] ([id number])[address] [place] [address] 04006Ekniv gap [Moles/Vol]8 mmol/LNormal5-15ProMedica Mercy Medical CenterComment on above: Performed By: #### CHRISTINE, 6-4, 23960-5, 2284-06, 2132-07 ####[facility] ([id number])2130 [facility], [address] [place] [address] 15424#### CARMEN, 31087-0, CMP ####[facility] ([id number])[address] [place] [address] 03898IVE [Catalytic activity/Vol]19 U/LNormal0-41 [facility] SystemComment on above:Performed By: #### CHRISTINE, 2276-4, 75129-6, 8, 2132-07 ####[facility] ([id number])2130 [facility], [address] [place] [address] 37385#### CARMEN, 84338-7, CMP ####[facility] ([id number])[address] [place] [address] 39594 Bilirubin [Mass/Vol]0.6 mg/dLNormal0.3-1.2ProMedMenlo Park VA HospitalComment on above:Performed By: #### CHRISTINE, 6-4, 91490-3, 2284-06, 2132-07 ####[facility] ([id number])2130 [facility], [address] [place] [address] 08414#### CBCDanielle, 16204-0, CMP ####[facility] ([id number])[address] [place] [address] 73273Hzbdwbd [Mass/Vol]8.1 mg/dLLow8.5-10.5 Pro[facility] Mercy Medical CenterComment on above:Performed By: #### CHRISTINE, 2275-4, 93388-5, 2284-06, 2132-07 ####[facility] ([id number])2130 [facility], [address] [place] [address] 93004#### CARMEN, 70669-9, CMP ####[facility] ([id number])[address] [place] [address] 82588 Chloride [Moles/Vol]103 mmol/BYhpuqy47-261RzaTpcuny Mercy Medical CenterComment on above:Performed By: #### CHRISTINE, 2275-4, 09256-4, 2284-06, 2132-07 ####[facility] ([id number])2130 [facility], [address] [place] [address] 95837#### CBCA, 14219-9, CMP ####[facility] ([id number])[address] [place] [address] 75636NS2 [Moles/Vol]25 mmol/FEvndie74-53MqgQfrpggMercy HealthComment on above:Performed By: #### CHRISTINE, 6-4, 32784-6, 2284-06, 2132-07 ####[facility] ([id number])[address] [place] [address] 99327#### CARMEN, 68233-3, CMP ####[facility] ([id number])[address] [place] [address] 91440Ayeenjacid [Mass/Vol]1.73 mg/dLHigh0.40-1.00ProBaptist Saint Anthony'S HospitalComment on above: Result Comment: METHOD TRACEABLE TO IDMS STANDARDPerformed By: #### CHRISTINE, 2276- 4, 55300-4, 2283-8, 2132-07 ####[facility] ([id number])[address] [place] [address] 22921#### CARMEN, 77151-3, CMP ####[facility] ([id number])[address] [place] [address] 99662 GFR/1.73 sq M.predicted among non-blacks MDRD (S/P/Bld) [Vol rate/Area]30 mL/min/{1.73_m2}Low>59ProBaptist Saint Anthony'S HospitalComment on above:Result Comment: Reported eGFR is based on theCKD-EPI 2020 equation that doesnot use a race coefficient.Performed By: #### CHRISTINE, 6-4, 82735-7, 2283-8, 2132-07 ####[facility] ([id number])[address] [place] [address] 21239#### CARMEN, 20473-4, CMP ####[facility] ([id number])[address] [place] [address] 20407Hftkdsq [Mass/Vol]238 mg/kZAcuh27-49 ProMKaiser Permanente Medical CenterComment on above:Performed By: #### CHRISTINE, 2276-4, 89929-0, 2283-8, 2132-07 ####[facility] ([id number])[address] [place] [address], [place] [address]#### CARMEN, 10997-1, CMP ####[facility] ([id number])[address] [place] [address] 44543 Potassium [Moles/Vol]4.5 mmol/LNormal3.5-5.0ProBaptist Saint Anthony'S HospitalComment on above:Performed By: #### CHRISTINE, 6-4, 71521-7, 2284-06, 2132-07 ####[facility] ([id number])2129 [facility], [address] [place] [address] 02982#### CARMEN, 95473-2, CMP ####[facility] ([id number])[address] [place] [address] 11648Acerfov [Mass/Vol]6.5 g/dLNormal6.0-8.0 Pro[facility] Mercy Medical CenterComment on above:Performed By: #### CHRISTINE, 6-4, 07213-8, 2284-06, 2132-07 ####[facility] ([id number])2129 [facility], [address] [place] [address] 21533#### CARMEN, 76482-9, CMP ####[facility] ([id number])[address] [place] [address] 55878Utabjc [Moles/Vol]136 mmol/PPuurft593-382UhkBouuuu [facility] HospitalComment on above: Performed By: #### CHRISTINE, 6-4, 12994-6, 2284-06, 2132-07 ####[facility] ([id number])2130 [facility], [address] [place] [address] 12429#### CARMEN, 75266-5, CMP ####[facility] ([id number])[address] [place] [address] 29854Jcfq nitrogen [Mass/Vol]34 mg/dLHigh5-27ProBaptist Saint Anthony'S HospitalComment on above:Performed By: #### SUKIR, 2276-4, 77721-9, 2284- 8, 2132-07 ####[facility] ([id number])[address] [place] [address], [address] [address]#### CARMEN, 39573-7, CMP ####[facility] ([id number])[address] [place] [address] 73996OFSAT OCCULT BLOODon 75-15-9835Qskggnweef.gastrointestinal Ql (Stl)NegativeNormalNEGProBaptist Saint Anthony'S HospitalComment on above:Performed By: #### 2335-8 ####[facility] ([id number])[address] [place] [address] 66529PHFHDNYP on 30-83-7565Visuccwm [Mass/Vol]98 ng/uXSptdxx83-850XgfGuvzcx [facility] Comment on above:Performed By: #### CHRISTINE, 2276-4, 40791-3, 8, 2132-07 ####[facility] ([id number])[address] [place] [address] 12498#### CARMEN, 81093-1, CMP ####[facility] ([id number])[address] [place] [address] 51265Iuzwwg [Mass/Vol]on 02-13-2025 FOLIC ACID5.2 ng/mLLow>5.8ProBaptist Saint Anthony'S HospitalComment on above:Result Comment: NEW REFERENCE RANGEPerformed By: #### CHRISTINE, 2276-4, 25509-5, 2283-8, 2132-07 ####[facility] ([id number])[address] [place] [address], [address] [address]#### CARMEN, 74842-3, CMP ####[facility] ([id number])[address] [place] [address] 44010Gneiazs Glucometer (BldC) [Mass/Vol]on 40-04-4539Bcllqeg [Mass/Vol]218 mg/hKJejm79-76YxhFlkplxBlanchard Valley Health SystemGlucose [Mass/Vol]277 mg/pQBdes02-84OxyDtfaddBlanchard Valley Health System Glucose [Mass/Vol]259 mg/lDUips55-19DqlWtbnetBlanchard Valley Health SystemGlucose [Mass/Vol] 210 mg/bFGahe18-80FywUrndwkBlanchard Valley Health SystemHGBon 74-26-9130Eqdygrgrbd (Bld) [Volume fraction]24.3 %Hdz54-02IrhJsaapzBlanchard Valley Health SystemComment on above: Performed By: #### HH ####[facility] ([id number])[address] [place] [address] 88308Agjbzhiwzr (Bld) [Mass/Vol]7.9 g/dLLow 11.7-15.5ProMedMenlo Park VA HospitalComment on above:Performed By: #### HH ####[facility] ([id number])[address] [place] [address] 70397QFIR PROFILEon 59-39-0968Rixb [Mass/Vol]11 ug/mEDho42-203 [facility] SystemComment on above:Performed By: #### CHRISTINE, 2276-4, 46283-7, 2283-8, 2132-07 ####[facility] ([id number])[address] [place] [address], [address] [place] [address] 70812#### CARMEN, 97174-3, CMP ####[facility] ([id number])[address] [place] [address] 44695TURC PVYHPLG763 ug/kYQkyztb743-052GdwLbezodBlanchard Valley Health SystemComment on above: Performed By: #### CHRISTINE, 2276-4, 09348-2, 2283-8, 2132-07 ####[facility] ([id number])[address] [place] [address], [address] [place] [address] 76109#### CARMEN, 14823-2, CMP ####[facility] ([id number])[address] [place] [address] 21791NYTI SATURATION4 % HCYKTBEJBNAcs90-24XsdTqmvwc [facility] HospitalComment on above:Performed By: #### CHRISTINE, 6-4, 53044-7, 2283- 8, 2132-07 ####[facility] ([id number])2130 [facility], [address] [place] [address] 14532#### CARMEN, 90233-1, CMP ####[facility] ([id number])[address] [place] [address] 51733HBYIYGYRKpz 08-31-4520Jbvjqirfv [Mass/Vol]1.9 mg/dLNormal1.8-2.6ProB[facility] Comment on above:Performed By: #### 59351-5 ####[facility] ([id number])[address] [place] [address] 53710Yhfmxfgdj [Mass/Vol]1.7 mg/dLLow1.8-2.6ProBaptist Saint Anthony'S HospitalComment on above: Performed By: #### CHRISTINE, 2275-4, 70843-4, 2284-06, 2132-07 ####[facility] ([id number])2130 [facility], [address] [place] [address] 08442#### CARMEN, 59001-9, CMP ####[facility] ([id number])[address] [place] [address] 05136RLPPDNU B12on 22-09-6591Nhzclwqaq (Vitamin B12) [Mass/Vol]187 pg/iNGdonbz324-883JyuEllhqj [facility] HospitalComment on above: Performed By: #### CHRISTINE, 6-4, 36002-4, 8, 2132-07 ####[facility] ([id number])2130 [facility], [address] [place] [address] 66639#### CARMEN, 53296-6, CMP ####[facility] ([id number])[address] [place] [address] 80562Yboqvid D+Metabolites [Mass/Vol]on 33-19-2952SJLQOIG D 25 HYD TOT36.2 ng/oHBvacdf68-748GjqVodfgd [facility] HospitalComment on above: Result Comment: Vitamin D status 25 [place] Vitamin D Deficiency <20 ng/mLInsufficiency 20-29 ng/mLSufficiency 30-100 ng/mLToxicity >100 ng/mLNOTE: A pediatric reference range has not beenestablished by the winder contort operator of this kit.The [place] [employer] recommendsa Vitamin D level of = or >20ng/mL in infantsand children.Performed By: #### FEPR, 2276-4, 97259-0, 2284-8, 2132-9 ####[facility] ([id number])[address] [place] [address], [address] [place] [address] 54564#### CARMEN, 30521-0, CMP ####[facility] ([id number])[address] [place] [address] 50605XALIMBDH BLOOD GASon 02-12-2025 TATO'S TESTNormalProBaptist Saint Anthony'S HospitalComment on above:Performed By: #### ABG ####[facility] ([id number])[address] [place] [address] 09907Yxcd excess Calc (Bld) [Moles/Vol]4.0 mmol/LHigh0.0-2.0 ProMedicOrange Coast Memorial Medical CenterComment on above:Performed By: #### ABG ####[facility] ([id number])[address] [place] [address] 28789Phse yrvxmpvhxem82.6 [degF]Tgbbgc16.0Bl[facility] Health SystemComment on above:Performed By: #### ABG ####[facility] ([id number])[address] [place] [address], [place] [address]OHS5 (Bld) [Moles/Vol]29.9 mmol/LHigh 22-26ProMediSilver Lake Medical CenterComment on above:Performed By: #### ABG ####[facility] ([id number])[address] [place] [address], [place] [address]JGJQ. O2 CONC.30 %NormalBlanchard Valley Health SystemComment on above:Performed By: #### ABG ####[facility] ([id number])[address] [place] [address], [place] [address]Jpggnz (Bld) [Partial pressure]76 mm[Hg]Umw65-266IpiQbgponBaptist Saint Anthony'S HospitalComment on above:Performed By: #### ABG ####[facility] ([id number])[address] [place] [address], [place] [address]Efiypg saturation in Blood95.0 %Normal>90ProBaptist Saint Anthony'S HospitalComment on above:Performed By: #### ABG ####[facility] ([id number])[address] [place] [address] [place] [address]ACWMQB SOURCENC Berger HospitalComment on above:Performed By: #### ABG ####[facility] ([id number])[address] [place] [address], [place] [address]KCI530.9 USVONgdm83-03JsdZtctnkBaptist Saint Anthony'S HospitalComment on above:Performed By: #### ABG ####[facility] ([id number])[address] [place] [address] [place] [address]hI (Bld)7.386 [pH]Normal7.350-7.450 [facility]cy Medical CenterComment on above:Performed By: #### ABG ####[facility] ([id number])[address] [place] [address] 08340VGLNVJ SITERRadNormalBlanchard Valley Health SystemComment on above:Performed By: #### ABG ####[facility] ([id number])[address] [place] [address] 16146XEQJJY TYPEARTERIALNormalBlanchard Valley Health System Comment on above:Performed By: #### ABG ####[facility] ([id number])[address] [place] [address] 61647GJBCZ CULTUREon 98-80-9673Zpiwvmgj identified Aer cx Nom (Bld)ResistantBlanchard Valley Health SystemComment on above:Performed By: #### 86757-4 ####[facility] ([id number])[address] [place] [address] 58458DSSFGCFORT [facility]TON [facility] ([id number])[address], [address] [place] [address] 98019 Bacteria identified Aer cx Nom (Bld)SPECIMEN NOTES RAC CULTURE RESULTS STAPHYLOCOCCUS AUREUS METHICILLIN RESISTANT FOR SUSCEPTIBILITY, SEE PREVIOUS REPORT.NormalBlanchard Valley Health SystemComment on above:Performed By: #### 81331-8 ####[facility] ([id number])[address] [place], [place] [address]20[facility] ([id number])[address], [address] [place] [address] 59267XTC AND AUTO DIFFon 05-97-3488RCUXYMPJ BASOPHIL0.0 X10E9/LNormal0.0-0.2ProMedica Mercy Medical CenterComment on above:Performed By: #### CBCA, 3040-3, 58931-5, 86238-2, CMP, 95569-0, PINR, 86214-1 ####[facility] ([id number])[address] [place] [address] 86900SDHQJNBQ NEUTROPHIL6.3 X10E9/LNormal1.5-6.6 [facility] SystemComment on above:Performed By: #### CBCA, 3040-3, 33691-3, 22158-2, CMP, 59734-7, PINR, 67226-2 ####[facility] ([id number])[address] [place] [address] 26013Esonpaedv/100 WBC (Bld)0.4 %NormalProBaptist Saint Anthony'S HospitalComment on above:Performed By: #### CBCA, 3040-3, 04443-8, 11353-7, CMP, 57290-2, PINR, 44183-9 ####[facility] ([id number])[address] [place] [address] 83019 Eosinophils (Bld) [#/Vol]0.1 10*3/uLNormal0.0-0.4[facility] Comment on above:Performed By: #### CBCA, 3040-3, 56704-0, 51767-5, CMP, 65765- 9, PINR, 03022-2 ####[facility] ([id number])[address] [place] [address] 81155Sxvybklgpwh/100 WBC (Bld)1.1 %NormalBlanchard Valley Health SystemComment on above:Performed By: #### CBCA, 3040-3, 69297-4, 35227-1, CMP, 69152-5, PINR, 38033-6 ####[facility] ([id number])[address] [place] [address] 04858Qgjfmiipaqg distribution width (RBC) [Ratio]17.0 %High11.5-15.0[facility] Comment on above:Performed By: #### CBCA, 3040-3, 97614-0, 63893-7, CMP, 53590- 9, PINR, 37454-6 ####[facility] ([id number])[address] [place] [address], [place] [address]Qnenjxcmvx (Bld) [Volume fraction]29.2 %Cqz33-85 [facility] Health SystemComment on above:Performed By: #### CBCDanielle, 3040-3, 41975-6, 34570-0, CMP, 92767-6, PINR, 76657-4 ####[facility] ([id number])[address] [place] [address] 77999Udqdbgxrqt (Bld) [Mass/Vol]9.5 g/dLLow11.7-15.5PMercy HealthComment on above: Performed By: #### CBCDanielle, 3040-3, 10322-0, 77990-6, CMP, 44552-0, PINR, 28490-3 ####[facility] ([id number])[address] [place] [address] 05664Hdolwenuwar (Bld) [#/Vol]0.7 10*3/uLLow1.0-3.5PMercy HealthComment on above:Performed By: #### CBCDanielle, 3040-3, 08665-4, 32755-6, CMP, 48856-4, PINR, 98434-2 ####[facility] ([id number])[address] [place] [address] 67187Kjbminbojdj/100 WBC (Bld)9.2 %NormalProBaptist Saint Anthony'S HospitalComment on above:Performed By: #### CBCA, 3040-3, 95044-5, 89403-1, CMP, 23139-0, PINR, 04638-4 ####[facility] ([id number])[address] [place] [address], [place] [address] MCH (RBC) [Entitic mass]27.3 vmQhrflm61-92IxhAqeqqtBlanchard Valley Health SystemComment on above:Performed By: #### CBCA, 3040-3, 16062-5, 70817-2, CMP, 50222-6, PINR, 38442-3 ####[facility] ([id number])[address] [place] [address] 75288KGDE (RBC) [Mass/Vol]32.6 g/qZShette65-38RobEqrklvBaptist Saint Anthony'S HospitalComment on above:Performed By: #### CBCA, 3040-3, 94809-8, 60815-5, CMP, 93000-4, PINR, 94929-5 ####[facility] ([id number])[address] [place] [address] 20395WRV (RBC) [Entitic vol]84 fLNormal 80-100Bl[facility] Health SystemComment on above:Performed By: #### CBCA, 3040- 3, 79559-0, 74035-1, CMP, 63017-4, PINR, 37499-6 ####[facility] ([id number])[address] [place] [address] 81541Chnxlbcat (Bld) [#/Vol]0.5 10*3/uLNormal0-0.9[facility] Health SystemComment on above: Performed By: #### CBCA, 3040-3, 20495-7, 18289-5, CMP, 95492-5, PINR, 50626-5 ####[facility] ([id number])[address] [place] [address] 86650Doeflvjmp/100 WBC (Bld)7.0 %NormalProBaptist Saint Anthony'S HospitalComment on above:Performed By: #### CBCA, 3040-3, 50233-9, 40701-0, CMP, 38229-6, PINR, 50331-6 ####[facility] ([id number])[address] [place] [address] 28670Muneupwfkvf/100 WBC (Bld)82.3 %Normal Pro[facility] Mercy Medical CenterComment on above:Performed By: #### CBCA, 3040-3, 45450-7, 76760-0, CMP, 08413-5, PINR, 32429-0 ####[facility] ([id number])[address] [place] [address] 91959Eyxciopk mean volume (Bld) [Entitic vol]7.6 fLNormal7-12ProMedica Mercy Medical CenterComment on above:Performed By: #### CBCA, 3040-3, 89941-8, 58869-5, CMP, 11470-0, PINR, 24771-6 ####[facility] ([id number])[address] [place] [address] 62368Bvbigohqz (Bld) [#/Vol]384 10*3/tBKefnhk959-963ShePqhxss [facility] HospitalComment on above:Performed By: #### CBCA, 3040-3, 31218-2, 99959-0, CMP, 51559-9, PINR, 81517-9 ####[facility] ([id number])[address] [place] [address] 61463LIE COUNT3.49 X10E12/LLow3.80-5.20[facility] Health SystemComment on above:Performed By: #### CBCA, 3040-3, 37559-0, 85577-9, CMP, 88768-0, PINR, 85886-7 ####[facility] ([id number])[address] [place] [address] 12054 WBC (Bld) [#/Vol]7.7 10*3/uLNormal4.0-11.0ProBaptist Saint Anthony'S HospitalComment on above:Performed By: #### CBCA, 3040-3, 65225-7, 83323-5, CMP, 63419-0, PINR, 27422-4 ####[facility] ([id number])[address] [place] [address], [place] [address]SJMYUDNBKMRGF METABOLIC PANELon 34-45-0164Ifapvfs [Mass/Vol]3.7 g/dLNormal3.2-5.3PMercy HealthComment on above: Performed By: #### CBCA, 3040-3, 15641-6, 99479-4, CMP, 40146-3, PINR, 91372-2 ####[facility] ([id number])[address] [place] [address], [place] [address]STD [Catalytic activity/Vol]137 U/OJden93-306LcbZvgflmBaptist Saint Anthony'S HospitalComment on above:Performed By: #### CBCDanielle, 3040-3, 00623-9, 78943-1, CMP, 11721-1, PINR, 95836-2 ####[facility] ([id number])[address] [place] [address], [place] [address]BHU [Catalytic activity/Vol]17 U/LNormal0-31PMercy HealthComment on above: Performed By: #### CBCA, 3040-3, 63674-2, 20507-3, CMP, 61915-3, PINR, 56047-2 ####[facility] ([id number])[address] [place] [address], [place] [address]Rwzen gap [Moles/Vol]11 mmol/LNormal5-15ProBaptist Saint Anthony'S HospitalComment on above:Performed By: #### CBCA, 3040-3, 62087-5, 92484-8, CMP, 54063-1, PINR, 49579-6 ####[facility] ([id number])[address] [place] [address], [place] [address]RXD [Catalytic activity/Vol]22 U/LNormal0-41 [facility]cy Medical CenterComment on above:Performed By: #### CARMEN, 3040-3, 60648-0, 17455-7, CMP, 00419-8, PINR, 76052-7 ####[facility] ([id number])[address] [place] [address]Drwldwxsl [Mass/Vol]0.6 mg/dLNormal0.3-1.2PMercy HealthComment on above: Performed By: #### CARMEN, 3040-3, 01987-6, 27188-9, CMP, 14327-6, PINR, 25540-2 ####[facility] ([id number])[address] [place] [address] 08394Xdfljsj [Mass/Vol]9.4 mg/dLNormal8.5-10.5PMercy HealthComment on above:Performed By: #### CARMEN, 3040-3, 43406-1, 73102-4, CMP, 94778-0, PINR, 82002-0 ####[facility] ([id number])[address] [place] [address], [place] [address]Imuiblsf [Moles/Vol]98 mmol/LNormal 98-109ProMedica Mercy Medical CenterComment on above:Performed By: #### CARMEN, 3040- 3, 81224-0, 80719-2, CMP, 65756-9, PINR, 02880-9 ####[facility] ([id number])[address] [place] [address], [place] [address]FK0 [Moles/Vol]28 mmol/JIhemib26-63YtqLwvbrdMercy HealthComment on above:Performed By: #### CARMEN, 3040-3, 13612-7, 41770-2, CMP, 80170-0, PINR, 12628-7 ####[facility] ([id number])[address] [place] [address]2374 Creatinine [Mass/Vol]1.79 mg/dLHigh0.40-1.00[facility] Health SystemComment on above:Result Comment: METHOD TRACEABLE TO IDMS STANDARDPerformed By: #### CARMEN, 3040-3, 76726-9, 39576-7, CMP, 76355-5, PINR, 17912-9 ####[facility] ([id number])[address] [place] [address] 50884DZP/1.73 sq M.predicted among non-blacks MDRD (S/P/Bld) [Vol rate/Area]29 mL/min/{1.73_m2}Low>59ProBaptist Saint Anthony'S HospitalComment on above:Result Comment: Reported eGFR is based on theCKD-EPI 2020 equation that doesnot use a race coefficient.Performed By: #### CARMEN, 3040-3, 21158-5, 51244-9, CMP, 09501-3, PINR, 76661-5 ####[facility] ([id number])[address] [place] [address] 77679Qjxpsxq [Mass/Vol]159 mg/hMEdgg11-84HayLvfobbBaptist Saint Anthony'S HospitalComment on above:Performed By: #### CARMEN, 3040-3, 33612-7, 75209-7, CMP, 08569-0, PINR, 84685-3 ####[facility] ([id number])[address] [place] [address] 564[address]Cgizpqbza [Moles/Vol]5.1 mmol/LHigh3.5-5.0ProBaptist Saint Anthony'S HospitalComment on above: Performed By: #### CARMEN, 3040-3, 58123-6, 77935-9, CMP, 74387-5, PINR, 76907-3 ####[facility] ([id number])[address] [place], [place] [address]Ulgjjix [Mass/Vol]8.0 g/dLNormal6.0-8.0[facility] Health SystemComment on above:Performed By: #### CARMEN, 3040-3, 80125-3, 04449-3, CMP, 03611-2, PINR, 91761-5 ####[facility] ([id number])[address] [place] [address], [place] [address]Rfkkrz [Moles/Vol]137 mmol/DQljimw321-453 [facility] SystemComment on above:Performed By: #### CARMEN, 3040-3, 67149-0, 18640-3, CMP, 13090-6, PINR, 24914-3 ####[facility] ([id number])[address] [place] [address] 28518Ibwf nitrogen [Mass/Vol]29 mg/dLHigh5-27ProBaptist Saint Anthony'S HospitalComment on above:Performed By: #### CARMEN, 3040-3, 29992-0, 05787-0, CMP, 58891-8, PINR, 56217-8 ####[facility] ([id number])[address] [place] [address], [place] [address]VY BRAIN WO CONTon 68-90-6504QT BRAIN WO CONTNormalProBaptist Saint Anthony'S HospitalLIPASEon 44-12-2474Ahygyb [Catalytic activity/Vol]26 U/FTbbqdo12-36 [facility] SystemComment on above:Performed By: #### CARMEN, 3040-3, 28235-7, 29316-1, CMP, 10793-3, PINR, 34111-2 ####[facility] ([id number])[address] [place] [address], [place] [address]Jvkvxhi (P obed) [Moles/Vol]on 33-49-8362LHILERT W/REFLEX0.9 mmol/LNormal0.4-2.0[facility] Hospitalment on above:Result Comment: Result did not trigger repeat Lactate,re-order if needed.Performed By: #### 72615-0 ####[facility] ([id number])[address] [place] [address] MAGNESIUMon 31-17-4839Plzywdeic [Mass/Vol]1.9 mg/dLNormal1.8-2.6ProBaptist Saint Anthony'S HospitalComment on above:Performed By: #### CBCA, 3040-3, 94720-5, 43229-1, CMP, 95114-7, PINR, 35534-6 ####[facility] ([id number])[address] [place] [address] 61343KRHWWTX AND INRon 49-70-9966TBA Coag (PPP) [Relative time]1.0 {INR}Normal0.9-1.2ProMedica Mercy Medical CenterComment on above:Performed By: #### CBCA, 3040-3, 46346-1, 11305-0, CMP, 04197-3, PINR, 16678-8 ####[facility] ([id number])[address] [place] [address] 24048YU Coag (PPP) [Time]11.7 sNormal9.8-13.2 [facility] on above:Result Comment: NEW REFERENCE RANGE Performed By: #### CBCA, 3040-3, 25821-8, 29305-6, CMP, 80556-0, PINR, 31200-7 ####[facility] ([id number])[address] [place] [address] 57915Nldratuatkhfr IA [Mass/Vol]on 69-48-3160JJAQDEZTERQNG7.14 ng/mLHigh<0.05ProBaptist Saint Anthony'S HospitalComfresenius medical care at [facility] on above:Result Comment: NOTE<0.50 ng/mL - Low risk of severe sepsis and/or septic shock.<2.00 ng/mL - Recommend retesting within 6-24 hours.>2.00 ng/mL - High risk of sepsis and/or septic shock.Performed By: #### CBCA, 3040-3, 64023-4, 95702-0, CMP, 68661-6, PINR, 31684-2 ####[facility] ([id number])[address] [place] [address] 95639KPBD/FLU A+B/RSV by NAAT/Molecularon 02-12-2025 SARS/FLU A+B/RSV by NAAT/MolecularNormalProBaptist Saint Anthony'S HospitalComment on above:Performed By: #### COVFLR ####[facility] ([id number])[address] [place] [address] 97335Bwdtyyiv I.cardiac High sensitivity method [Mass/Vol]on HOUR TROP I, HIGH JMYSXMPRJJK34 ng/L Normal<16[facility] SystemComment on above:Performed By: #### 73476-1 ####[facility] ([id number])[address] [place] [address] 11924CYZFFFFD I, HIGH PKXNWNSRXDJ31 ng/LNormal<16ProBaptist Saint Anthony'S HospitalComment on above:Performed By: #### CBCA, 3040-3, 54519-5, 55206-8, CMP, 27198-0, PINR, 67758-2 ####[facility] ([id number])[address] [place] [address] 49891QJPRFZLBUTyy 26-59-1840Eqjqvcrsb Ql (U)NegativeNormalNEGProBaptist Saint Anthony'S HospitalComment on above:Performed By: #### UA ####[facility] ([id number])[address] [place] [address] 80517ZWNTN/HGBTraceAbnormalNEGProBaptist Saint Anthony'S HospitalComment on above:Performed By: #### UA ####[facility] ([id number])[address] [place] [address] 46799Lhsxm (U)YELLOWNormalYELLOWProPomerene Hospitalca Mercy Medical CenterComment on above:Performed By: #### UA ####[facility] ([id number])[address] [place] [address], [place] [address]Yjpftlc Ql (U)NegativeNormalNEGProBaylor University Medical Center on above:Performed By: #### UA ####[facility] ([id number])[address] [place] [address] 50172Yhrgtod Ql (U) TraceAbnormalNEGProPomerene Hospitalca Mercy Medical CenterComment on above:Performed By: #### UA ####[facility] ([id number])[address] [place] [address] 40586Ghhkvdumy esterase Test strip Ql (U)SMALLAbnormalNEGProBaptist Saint Anthony'S HospitalComment on above:Performed By: #### UA ####[facility] ([id number])[address] [place] [address] 64520Utoynvy Ql (U)PositiveAbnormalNEGProBaptist Saint Anthony'S HospitalComment on above:Performed By: #### UA ####[facility] ([id number])[address] [place] [address] 89536rU (U)6.5 [pH]Normal5.0-8.5ProMedica Mercy Medical CenterComment on above:Performed By: #### UA ####[facility] ([id number])[address] [place] [address] 24641Lgtzwkw Ql (U)30 mg/dLAbnormalNEGProBaptist Saint Anthony'S HospitalComment on above:Performed By: #### UA ####[facility] ([id number])[address] [place] [address] 18661U.B.CELLS14 /hpfHigh0-5PMercy HealthComment on above:Performed By: #### UA ####[facility] ([id number])[address] [place] [address] 81995Qqnvtrqy gravity (U) [Rel density]1.020 Normal1.003-1.035ProBaptist Saint Anthony'S HospitalComment on above:Performed By: #### UA ####[facility] ([id number])[address] [place] [address] 85554WJILOJNQ EPITHELIUM1 /hpfNormal0-5PMercy HealthComment on above:Performed By: #### UA ####[facility] ([id number])[address] [place] [address] 61446FPMOSRXLYTZI EPITH1 /gvfDlns2AzlAkzotuBaptist Saint Anthony'S HospitalComment on above:Performed By: #### UA ####[facility] ([id number])[address] [place] [address] 21946ZMXXKXVDBYZUWRppecwscJVXFYMfrLvuick Fremont HospitalComment on above:Performed By: #### UA ####[facility] ([id number])[address] [place] [address] 26559Fvhyfxqjqxdn Qn (U)0.2 {Artie'U}/dL Normal<1.1PMercy HealthComment on above:Performed By: #### UA ####[facility] ([id number])[address] [place] [address] 01938V.B.CELLS>614Cpzs4-4IpoXjcrxrMercy HealthComment on above: Performed By: #### UA ####[facility] ([id number])[address] [place] [address] [place] [address]LJR CLUMPSFEWAbnormalNONEPMercy HealthComment on above:Performed By: #### UA ####[facility] ([id number])[address] [place] [address], REPLACED BY [facility] [place], [place] [address]WKDVV CULTUREon 47-63-8288Tjdgfmhy identified Cx Nom (U)SusceptibleBlanchard Valley Health System Comment on above:Performed By: #### 630-4 ####[facility] ([id number])[address] [facility], [address], [place] [address]OMZ MACROSCOPIC NURon 69-87-3260MPMKVHMZN NURNegativeNormalNEGBlanchard Valley Health SystemComment on above:Performed By: #### NUM ####[facility] ([id number])[address] [place] [address], REPLACED BY [facility] [place], [place] [address]AYIFO/HGB NURTraceAbnormalNEGBlanchard Valley Health SystemComment on above:Performed By: #### NUM ####[facility] ([id number])[address] [place] [address], [place] [address]GWYAGJD VBB770 mg/dLAbnormalNEGBlanchard Valley Health SystemComment on above:Performed By: #### NUM ####[facility] ([id number])[address] [place] [address], [place] [address]SHESNIF NUR15 mg/dLAbnoalNEGBlanchard Valley Health System Comment on above:Performed By: #### NUM ####[facility] ([id number])[address] [place] [address], [place] [address]BQTDOXINJ ESTERASE NURSmallAbnormalNEGBlanchard Valley Health SystemComment on above:Performed By: #### NUM ####[facility] ([id number])[address] [place] [address], [place] [address]GOHWASF NURPositiveAbnormalNEGBlanchard Valley Health SystemComment on above:Performed By: #### NUM ####[facility] ([id number])[address] [place] [address], [place] [address]YB NUR6.5Normal 5.0-8.5PMercy HealthComment on above:Performed By: #### NUM ####[facility] ([id number])[address] [place] [address] 56039EUYCWTX HRW652 mg/dLAbnormalNEGProBaptist Saint Anthony'S HospitalComment on above:Performed By: #### NUM ####[facility] ([id number])[address] [place] [address] 18722YONZYGEW GRAVITY NUR1.020Normal 1.003-1.035ProBaptist Saint Anthony'S HospitalComment on above:Performed By: #### NUM ####[facility] ([id number])[address] [place] [address] 26204YKEOOCRVZQXU NUR0.2 eu/dLNormal<1.1PMercy Health Comment on above:Performed By: #### NUM ####[facility] ([id number])[address] [place] [address] 15801HZ CHEST 1 VWon 58-96-6732XC CHEST 1 VWNormalProBaptist Saint Anthony'S HospitalaPTT Coag (PPP) [Time]on 62-73-0267bRVO Coag (Bld) [Time]28 eYsbcqa01-12ZazWybdveBlanchard Valley Health SystemComment on above:Result Comment: NEW REFERENCE RANGEPerformed By: #### CBCA, 3040-3, 87719-3, 58370-9, CMP, 35859-8, PINR, 36267-7 ####[facility] ([id number])[address] [place] [address] 75808PAVSFNIFHSTD - ALBUMIN:CREATININE URINE RATIOon 1946LWJ/CREAT RATIO16.2 mg/g creatNormal 0.0-30.0Bl[facility] Valley Health SystemComment on above:Performed By: #### JOIE ####[facility] ([id number])[address] [place] [address], [address] [place] [address] 113[address]#### UA ####[facility] ([id number])[address] [place] [address] 77804Uzpdudh DL <= 20 mg/L (U) [Mass/Vol]1.3 mg/dLNormal 0.0-1.9ProMedica Mercy Medical CenterComment on above:Performed By: #### JOIE ####[facility] ([id number])[address] [place] [address], [address] [place] [address] 613[address]#### UA ####[facility] ([id number])[address] [place] [address] 16205FUADS CREAT80.04 mg/dLNormalProPomerene Hospitalca Mercy Medical CenterComment on above:Performed By: #### JOIE ####[facility] ([id number])[address] [place] [address]#### UA ####[facility] ([id number])[address] [place] [address] 29630UZTBJUGGUYfs 41-29-1262Glppbasdu Ql (U)NegativeNormalNEGProPomerene Hospitalca Mercy Medical CenterComment on above:Performed By: #### JOIE ####[facility] ([id number])[address] [place] [address], [address] [place] [address] 36311#### UA ####[facility] ([id number])[address] [place] [address] 70145JQNVF/HGBTraceAbnormalNEGProPomerene Hospitalca Mercy Medical CenterComment on above: Performed By: #### JOIE ####[facility] ([id number])[address] [place] [address], [address] [place] [address] 18166#### UA ####[facility] ([id number])[address] [place] [address] 48749Oucbq (U)YELLOW NormalYELLOWProMedica Mercy Medical CenterComment on above:Performed By: #### JOIE ####[facility] ([id number])[address], [address], [place] [address]#### UA ####[facility] ([id number])[address] [place] [address], REPLACED BY [facility] [place], [place] [address]Qvizsqb Ql (U)250 mg/dLAbnormalNEGProPomerene Hospitalca Mercy Medical CenterComment on above:Performed By: #### JOIE ####[facility] ([id number])[address], [address], [place] [address]#### UA ####[facility] ([id number])[address] [place] [address], [place] [address]Ihhjevx Ql (U)NegativeNormalNEGProBaptist Saint Anthony'S HospitalComment on above: Performed By: #### JOIE ####[facility] ([id number])[address], [address] [place] [address] 33307#### UA ####[facility] ([id number])[address] [place] [address], [place] [address]Opcvnixmi esterase Test strip Ql (U)SMALLAbnormalNEGProBaptist Saint Anthony'S HospitalComment on above:Performed By: #### JOIE ####[facility] ([id number])[address], [address] [place] [address]1966#### UA ####[facility] ([id number])[address] [place] [address] 33607Tclrnuu Ql (U) PositiveAbnormalNEGProPomerene Hospitalca Mercy Medical CenterComment on above:Performed By: #### JOIE ####[facility] ([id number])[address], [address], [place] [address]#### UA ####[facility] ([id number])[address] [place] [address] 22688eG (U)6.0 [pH]Normal5.0-8.5PMercy HealthComment on above:Performed By: #### JOIE ####[facility] ([id number])[address] [facility], [address] [place] [address]#### UA ####[facility] ([id number])[address] [place] [address] 95874Ugjgtdp Ql (U)NegativeNormalNEGProBaptist Saint [facility] Comment on above:Performed By: #### JOIE ####[facility] ([id number])[address] [place] [address], [address] [address]#### UA ####[facility] ([id number])[address] [place] [address] 44413N.B.CELLS2 /hpfNormal0-5PMercy HealthComment on above: Performed By: #### JOIE ####[facility] ([id number])[address] [facility], [address] [place] [address] 23991#### UA ####[facility] ([id number])[address] [place] [address] 76802Lmkvvzfl gravity (U) [Rel density]1.388Rwupne2.003-1.035ProBaptist Saint Anthony'S HospitalComment on above:Performed By: #### JOEI ####[facility] ([id number])[address] [facility], [address] [place] [address] 16[address]#### UA ####[facility] ([id number])[address] [place] [address] 50610YSOUOGMQ EPITHELIUM3 /hpfNormal0-5PMercy HealthComment on above:Performed By: #### JOIE ####[facility] ([id number])[address], [address] [place] [address] 14537#### UA ####[facility] ([id number])[address] [place] [address] 54437UTYNNXPVQQGRMHuiklexmJWLYL ProMedica Mercy Medical CenterComment on above:Performed By: #### JOIE ####[facility] ([id number])[address], [address] [place] [address] 38751#### UA ####[facility] ([id number])[address] [place] [address] 80872Uqzaxsfupiqm Qn (U)0.2 {Artie'U}/dLNormal<1.1PMercy HealthComment on above:Performed By: #### JOIE ####[facility] ([id number])[address], [address] [place] [address] 34210#### UA ####[facility] ([id number])[address] [place] [address] 39338D.B.CELLS>434Tfbq3-5UxwMlsqhcMercy HealthComment on above:Performed By: #### JOIE ####[facility] ([id number])[address], [address] [place] [address] 89357#### UA ####[facility] ([id number])[address] [place] [address] 61146IFJ CLUMPSFEW AbnormalNONEPMercy HealthComment on above:Performed By: #### JOIE ####[facility] ([id number])[address], [address] [place] [address]#### UA ####[facility] ([id number])[address] [place] [address] 46848NCYLH METABOLIC PANLon 04-91-3890Uukkc gap [Moles/Vol]12 mmol/LNormal5-15Bl[facility] Health SystemComment on above: Performed By: #### CARMEN, 2777-1, 30145-4, BMP, 73586-1, 2730-8 ####[facility] ([id number])[address], [address], [place] [address] Calcium [Mass/Vol]9.0 mg/dLNormal8.5-10.5PMercy HealthComment on above:Performed By: #### CARMEN, 2777-1, 48917-1, BMP, 35192-6, 2730- ####[facility] ([id number])[address], [address], [place] [address] Chloride [Moles/Vol]95 mmol/XQip55-731JloHqhyqfBaptist Saint Anthony'S HospitalComment on above:Performed By: #### CARMEN, 2777-1, 55519-7, BMP, , 2731-06 ####[facility] ([id number])[address] [address], [place] [address]JW2 [Moles/Vol]30 mmol/VYibmgw92-47FcdMfhhsiMercy HealthComment on above: Performed By: #### CARMEN, 2777-1, 72152-6, BMP, 23506-3, 8 ####[facility] ([id number])[address] [address] [place] [address] Creatinine [Mass/Vol]2.12 mg/dLHigh0.40-1.00Bl[facility] Valley Health SystemComment on above:Result Comment: METHOD TRACEABLE TO IDMS STANDARDPerformed By: #### CARMEN, 2777-1, 56610-1, BMP, 02589-7, 2731-06 ####[facility] ([id number])[address] [address], [place] [address]SZW/1.73 sq M.predicted among non-blacks MDRD (S/P/Bld) [Vol rate/Area]23 mL/min/{1.73_m2}Low>59ProBaptist Saint Anthony'S HospitalComment on above:Result Comment: Reported eGFR is based on theCKD-EPI 2020 equation that doesnot use a race coefficient.Performed By: #### CARMEN, 2777-1, 68437-6, BMP, 40971-5, 2730-8 ####[facility] ([id number])[address], [address], [place] [address]Tgodeaw [Mass/Vol]268 mg/dL Mord78-16AlwJvqxluBaptist Saint Anthony'S HospitalComment on above:Performed By: #### CARMEN, 2777-1, 00522-2, BMP, 00771-0, 2731-06 ####[facility] ([id number])[address], [address], [place] [address]Bslzealtv [Moles/Vol]5.1 mmol/L High3.5-5.0ProBaptist Saint Anthony'S HospitalComment on above:Performed By: #### CARMEN, 2777-1, 28658-3, BMP, 90261-1, 2730- ####[facility] ([id number])[address], [address], [place] [address]Rnvqup [Moles/Vol]137 mmol/L Pyoedy182-656UlfYldmkxBaptist Saint Anthony'S HospitalComment on above:Performed By: #### CARMEN, 2777-1, 78152-4, BMP, 69277-5, 2730-8 ####[facility] ([id number])[address], [address], [place] [address]Byva nitrogen [Mass/Vol]40 mg/dLHigh5-27ProBaptist Saint Anthony'S HospitalComment on above:Performed By: #### CARMEN, 2777-1, 63417-0, BMP, 07863-1, 2730-8 ####[facility] ([id number])[address], [place] [address]RTL AND AUTO DIFFon 02-02-2025 ABSOLUTE BASOPHIL0.0 X10E9/LNormal0.0-0.2PMercy HealthComment on above:Performed By: #### CBCA, 2777-1, 25112-4, [facility], , 2731-06 ####[facility] ([id number])[address], [address] [place] [address] ABSOLUTE NEUTROPHIL2.9 X10E9/LNormal1.5-6.6ProBaptist Saint Anthony'S HospitalComment on above:Performed By: #### CBCA, 7-, 56038-0, [facility], , 2731-06 ####[facility] ([id number])[address] [address] Basophils/100 WBC (Bld)0.5 %NormalProBaptist Saint Anthony'S HospitalComment on above: Performed By: #### CBCDanielle, 2776-, 60355-3, [facility], , 2731-06 ####[facility] ([id number])[address] [address] Eosinophils (Bld) [#/Vol]0.3 10*3/uLNormal0.0-0.4[facility] Comment on above:Performed By: #### CBCA, 2776-, 41174-4, [facility], , 2731-06 ####[facility] ([id number])[address] [address]Akrpawijegm/100 WBC (Bld)5.4 %NormalProBaptist Saint Anthony'S HospitalComment on above:Performed By: #### CBCA, 2777-1, 86500-7, [facility], , 2731-06 ####[facility] ([id number])[address] [address] Erythrocyte distribution width (RBC) [Ratio]16.4 %High11.5-15.0[facility] SystemComment on above:Performed By: #### CBCDanielle, 2777-1, 70305-9, BMP, - , 2731-06 ####[facility] ([id number])[address], [place] [address]Rdyuoupllp (Bld) [Volume fraction]29.2 %Cvn40-18BazUvdrhtBaptist Saint Anthony'S HospitalComment on above:Performed By: #### CBCDanielle, 2777-1, 37468-2, BMP, 37402-7, 2731-06 ####[facility] ([id number])[address], [address], [place] [address]Mwtlfwktqd (Bld) [Mass/Vol]9.5 g/dLLow11.7-15.5 [facility] SystemComment on above:Performed By: #### CBCDanielle, 2777-1, 16993-8, BMP, , 2731-06 ####[facility] ([id number])[address], [address], [place] [address]Bufysiweuls (Bld) [#/Vol]1.8 10*3/uLNormal 1.0-3.5ProMedica Mercy Medical CenterComment on above:Performed By: #### CBCDanielle, 2777- 1, 07842-0, BMP, , 2731-06 ####[facility] ([id number])[address], [address], [place] [address]Aedpritjeuu/100 WBC (Bld)31.9 % NormalProBaptist Saint Anthony'S HospitalComment on above:Performed By: #### CBCA, 2777- 1, 83168-4, BMP, 09090-1, 2731-06 ####[facility] ([id number])[address], [address], [place] [address]ENA (RBC) [Entitic mass]27.6 pg Lbldpr16-47UvkJfznbaBaptist Saint Anthony'S HospitalComment on above:Performed By: #### CBCA, 2777-1, 73542-5, BMP, 82782-4, 2730-8 ####[facility] ([id number])[address], [address] [place] [address]AUCN (RBC) [Mass/Vol]32.7 g/dL Drhfhu19-38GswSpakww [facility] HospitalComment on above:Performed By: #### CBCA, 2777-1, 90455-8, BMP, 98823-6, 2730-8 ####[facility] ([id number])[address], [address] [place] [address]LNQ (RBC) [Entitic vol]84 fL Zhgrun68-098OmcWunilaBaptist Saint Anthony'S HospitalComment on above:Performed By: #### CBCA, 2777-1, 60123-7, BMP, 22548-5, 2730- ####[facility] ([id number])[address], [address] [place] [address]Akuyvhggc (Bld) [#/Vol]0.6 10*3/uLNormal0-0.9[facility] SystemComment on above:Performed By: #### CBCA, 2777-1, 86011-7, BMP, 15902-6, 2730- ####[facility] ([id number])[address], [address] [place] [address]Jcdqzcynq/100 WBC (Bld)10.2 %NormalProBaptist Saint Anthony'S HospitalComment on above:Performed By: #### CBCA, 2777-1, 41165-6, BMP, 05044-3, 2730-8 ####[facility] ([id number])[address], [address] [place] [address]Ptycpsicbzs/100 WBC (Bld)52.0 % NormalProOhiohealth Shelby Hospital HospitalComment on above:Performed By: #### CBCA, 2777- 1, 55752-7, BMP, 75754-1, 2730-8 ####[facility] ([id number])[address], [address] [place] [address]Ejyrczcr mean volume (Bld) [Entitic vol]8.0 fLNormal7-12PMercy HealthComment on above: Performed By: #### CBCDanielle, 2777-1, 68272-9, BMP, 04577-6, 2730- ####[facility] ([id number])[address], [address] [place] [address] Platelets (Bld) [#/Vol]338 10*3/vGUbzwbq045-409UynZyifjq [facility] HospitalComment on above:Performed By: #### CARMEN, 2777-1, 76491-3, BMP, 49165-6, 2730- ####[facility] ([id number])[address], [address] [place] [address] 25022FRJ COUNT3.46 X10E12/LLow3.80-5.20ProBaptist Saint Anthony'S HospitalComment on above:Performed By: #### CBCDanielle, 2777-1, 78291-7, BMP, 29334-0, 2730- ####[facility] ([id number])[address], [address] [place] [address] 84956ADU (Bld) [#/Vol]5.6 10*3/uLNormal4.0-11.0[facility] Health SystemComment on above:Performed By: #### CBCA, 2777-1, 56683-3, BMP, 05127-6, 2730- ####[facility] ([id number])[address], [address] [place] [address] 29196 MAGNESIUMon 27-34-6831Rhvlttrhl [Mass/Vol]2.0 mg/dLNormal1.8-2.6Bl[facility] Valley Health SystemComment on above:Performed By: #### CBCA, 2777-1, 27979-2, BMP, 73327-0, 2730-8 ####[facility] ([id number])2130 [facility], [facility] [address], [place] [address]KDAKSLCTYWul 27-40-9287Oelcnbsxx [Mass/Vol]4.7 mg/dL Normal2.4-4.9ProBaptist Saint Anthony'S HospitalComment on above:Performed By: #### CBCDanielle, 2777-1, 80045-2, BMP, 14283-6, 2730-8 ####[facility] ([id number])2130 [facility] [address], [place] [address]Gvuvqtsqys.intact [Mass/Vol]on 71-33-8589EBC EMNQNJ705 pg/rXTvye18-20ZkoSqohynBaptist Saint Anthony'S HospitalComment on above:Performed By: #### CARMEN, 2777-1, 80340-6, BMP, 28580-2, 2730-8 ####[facility] ([id number])2130 [facility] [address] [place] [address] 34416 Vitamin D+Metabolites [Mass/Vol]on 25-58-4277QGVBFCE D 25 HYD TOT48.7 ng/mL Qigsxw12-389GooFenbxgBaptist Saint Anthony'S HospitalComment on above:Result Comment: Vitamin D status 25 [place] Vitamin D Deficiency <20 ng/mLInsufficiency 20-29 ng/mLSufficiency 30-100 ng/mLToxicity >100 ng/mLNOTE: A pediatric reference range has not beenestablished by the winder contort operator of this kit.The [place] [employer] recommendsa Vitamin D level of = or >20ng/mL in infantsand children.Performed By: #### CBCA, 2777-1, 35106-0, BMP, 17086-7, 2730-8 ####[facility] ([id number])2130 [facility], [address], [place] [address]EBZTXM ANTIGEN 27.29on 85-94-2854MQKYSC ANTGN 27.2956.4 U/mLHigh<=39.0ProMedica Mercy Medical CenterComment on above:Result Comment: NOTEINTERPRETIVE INFORMATION: Cancer Antigen 27.29The CA 27.29 assay [...] frequentlyhave CA 27.29 assay values in the samerange as healthyindividuals. Elevations may also be observed in patients with nonmalignant disease.Results of this test must always be interpretedin the context of morphologic and other relevant data, and shouldnot be used alone for a diagnosis of malignancy.Methodology: [facility] [facility] IM BR 27.29 (BR) chemiluminescentimmunoassay was used. Results obtained with different assaymethods or kits cannot be used interchangeably.Performed By: [employer] [place] [address] 47934Tatrgwtecb Director: Brendon Ruiz MD, PhDCLIA Number: [id number] By: #### RUBEN, 6875-9, CBCA ####[facility] ([id number])2130 [facility], [address] [place] [address] 84678#### CANTGN ####[facility] ([id number])[address] [place] [address] 91916RHH AND AUTO DIFFon 49-51-3790SCZQISNL BASOPHIL0.0 X10E9/LNormal0.0-0.2ProMedica Mercy Medical CenterComment on above: Performed By: #### RUBEN, 6875-9, CBCA ####[facility] ([id number])2130 [facility], [address] [place] [address] 59809#### CANTGN ####[facility] ([id number])[address] [place] [address] 55850 ABSOLUTE NEUTROPHIL4.9 X10E9/LNormal1.5-6.6ProBaptist Saint Anthony'S HospitalComment on above:Performed By: #### RUBEN, 6875-9, CBCA ####[facility] ([id number])[address], [address] [place] [address] 63300#### CANTGN ####[facility] ([id number])[address] [place] [address] 01602 Basophils/100 WBC (Bld)0.6 %NormalProBaptist Saint Anthony'S HospitalComment on above: Performed By: #### RUBEN, 6875-9, CBCA ####[facility] ([id number])0 [facility], [address] [place] [address] 05437#### CANTGN ####[facility] ([id number])[address] [place] [address] 87533 Eosinophils (Bld) [#/Vol]0.2 10*3/uLNormal0.0-0.4[facility] Comment on above:Performed By: #### RUBEN, 6875-9, CBCA ####[facility] ([id number])0 W.[facility] [address] [place] [address] 83972#### CANTGN ####[facility] ([id number])[address] [place] [address] 69045Zgjpcszioia/100 WBC (Bld)2.1 %NormalProBaptist Saint Anthony'S HospitalComment on above:Performed By: #### RUBEN, 6875-9, CBCA ####[facility] ([id number])2130 [facility] [address] [place] [address] 03978#### CANTGN ####[facility] ([id number])[address] [place] [address] 22177Zkzehwhoner distribution width (RBC) [Ratio]16.2 %High 11.5-15.0Bl[facility] Valley Health SystemComment on above:Performed By: #### RUBEN, 6875-9, CBCA ####[facility] ([id number])0 [facility], [address] [place] [address] 17309#### CANTGN ####[facility] ([id number])[address] [place] [address] 68412Xovjynitbe (Bld) [Volume fraction] 29.1 %Qio83-64AplLldwnoBaptist Saint Anthony'S HospitalComment on above:Performed By: #### RUBEN, 6875-9, CBCA ####[facility] ([id number])0 [facility], [address] [place] [address] 63764#### CANTGN ####[facility] ([id number])[address] [place] [address] 91531Yereppumaz (Bld) [Mass/Vol]9.6 g/dLLow11.7-15.5PMercy HealthComment on above:Performed By: #### RUBEN, 6875-9, CBCA ####[facility] ([id number])0 [facility], [address] [place] [address] 64367#### CANTGN ####[facility] ([id number])[address] [place] [address] 45095Sktcfmfkcki (Bld) [#/Vol]1.4 10*3/uLNormal1.0-3.5PMercy HealthComfresenius medical care at [facility] on above: Performed By: #### RUBEN, 6875-9, CBCA ####[facility] ([id number])0 [facility], [address] [place] [address] 62022#### CANTGN ####[facility] ([id number])[address] [place] [address] 81361 Lymphocytes/100 WBC (Bld)19.6 %NormalProBaptist Saint Anthony'S HospitalComment on above: Performed By: #### RUBEN, 6875-9, CBCA ####[facility] ([id number])[address] [address]#### CANTGN ####[facility] ([id number])[address] [place] [address] 27192 MCH (RBC) [Entitic mass]27.3 heBoisog38-82OkmOeplnkBaptist Saint Anthony'S HospitalComment on above:Performed By: #### RUBEN, 6875-9, CBCA ####[facility] ([id number])[address] [address]#### CANTGN ####[facility] ([id number])[address] [place] [address] 11347 MCHC (RBC) [Mass/Vol]32.9 g/vCEymane33-27IorFpblqaBaptist Saint Anthony'S HospitalComment on above:Performed By: #### RUBEN, 6875-9, CBCA ####[facility] ([id number])[address] [address]#### CANTGN ####[facility] ([id number])[address] [place] [address] 72404 MCV (RBC) [Entitic vol]83 eYAwnhmp22-735ElfQbxcyl Fremont HospitalComment on above:Performed By: #### RUBEN, 6875-9, CBCA ####[facility] ([id number])[address] [address]#### CANTGN ####[facility] ([id number])[address] [place] [address] 01617 Monocytes (Bld) [#/Vol]0.8 10*3/uLNormal0-0.9ProWalker County Hospital Effingham HospitalComment on above:Performed By: #### CMP, 6875-9, CBCA ####[facility] ([id number])[address] [address], [address] [place] [address] 15014#### CANTGN ####[facility] ([id number])[address] [place] [address] 52238 Monocytes/100 WBC (Bld)10.5 %NormalBlanchard Valley Health SystemComment on above: Performed By: #### CMP, 6875-9, CBCA ####[facility] ([id number])0 [facility], [address] [place] [address] 68985#### CANTGN ####[facility] ([id number])[address] [place] [address] 50141 Neutrophils/100 WBC (Bld)67.2 %NormalProBaptist Saint Anthony'S HospitalComment on above: Performed By: #### CMP, 6875-9, CBCA ####[facility] ([id number])0 [facility], [address] [place] [address] 07966#### CANTGN ####[facility] ([id number])[address] [place] [address] 51290 Platelet mean volume (Bld) [Entitic vol]8.5 fLNormal7-12ProMedica Mercy Medical CenterComment on above:Performed By: #### CMP, 6875-9, CBCA ####[facility] ([id number])0 W.[facility] [address] [place] [address] 26361#### CANTGN ####[facility] ([id number])[address] [place] [address] 17418Prfzhlbes (Bld) [#/Vol]333 10*3/tRHuoyif381-651ZgeKjqcxn [facility]ont HospitalComment on above:Performed By: #### CMP, 6875-9, CBCA ####[facility] ([id number])2130 [facility] [address] [place] [address] 76478#### CANTGN ####[facility] ([id number])[address] [place] [address] 72070NWE COUNT3.50 X10E12/LLow3.80-5.20ProBaptist Saint Anthony'S HospitalComment on above:Performed By: #### RUBEN, 6875-9, CBCA ####[facility] ([id number])2130 [facility], [address] [place] [address] 45582#### CANTGN ####[facility] ([id number])[address] [place] [address] 73136LVI (Bld) [#/Vol]7.3 10*3/uLNormal4.0-11.0ProBaptist Saint Anthony'S HospitalComment on above:Performed By: #### RUBEN, 6875-9, CBCA ####[facility] ([id number])[address] [place] [address] 22049#### CANTGN ####[facility] ([id number])[address] [place] [address] 53756RNFQCNRWXCTMJ METABOLIC PANELon 83-54-4710Aplzeii [Mass/Vol]3.9 g/dLNormal3.2-5.3ProMedica Mercy Medical CenterComment on above: Performed By: #### RUBEN, 6875-9, CBCA ####[facility] ([id number])[address] [place] [address] 15088#### CANTGN ####[facility] ([id number])[address] [place] [address] 60113 ALP [Catalytic activity/Vol]102 U/JLrwunw01-485UbvZtedazBaptist Saint Anthony'S HospitalComment on above:Performed By: #### RUBEN, 6875-9, CBCA ####[facility] ([id number])0 [facility], [address], [place] [address]#### CANTGN ####[facility] ([id number])[address] [place] [address] 71304 ALT [Catalytic activity/Vol]16 U/LNormal0-31PMercy HealthComment on above:Performed By: #### RUBEN, 6875-9, CBCA ####[facility] ([id number])0 [facility] [address], [place] [address]#### CANTGN ####[facility] ([id number])[address] [place] [address] 08036 Anion gap [Moles/Vol]11 mmol/LNormal5-15ProBaptist Saint Anthony'S HospitalComment on above:Performed By: #### RUBEN, 6875-9, CBCA ####[facility] ([id number])[address] [address]#### CANTGN ####[facility] ([id number])[address] [place] [address] 23404 AST [Catalytic activity/Vol]18 U/LNormal0-41ProBaptist Saint Anthony'S HospitalComment on above:Performed By: #### RUBEN, 6875-9, CBCA ####[facility] ([id number])[address] [place] [address], [address], [place] [address]#### CANTGN ####[facility] ([id number])[address] [place] [address] 18799 Bilirubin [Mass/Vol]0.5 mg/dLNormal0.3-1.2PMercy HealthComment on above:Performed By: #### RUBEN, 6875-9, CBCA ####[facility] ([id number])[address] [place] [address] 71436#### CANTGN ####[facility] ([id number])[address] [place] [address] 54167 Calcium [Mass/Vol]9.6 mg/dLNormal8.5-10.5PMercy HealthComment on above:Performed By: #### RUBEN, 6875-9, CBCA ####[facility] ([id number])[address] [place] [address] 67372#### CANTGN ####[facility] ([id number])[address] [place] [address] 30414 Chloride [Moles/Vol]96 mmol/UInq35-186InsMxlwlqBaptist Saint Anthony'S HospitalComment on above:Performed By: #### RUBEN, 6875-9, CBCA ####[facility] ([id number])[address] [place] [address] 32984#### CANTGN ####[facility] ([id number])[address] [place] [address] 96217 CO2 [Moles/Vol]27 mmol/DPijijo41-06WfjIcikrkMercy HealthComment on above: Performed By: #### RUBEN, 6875-9, CBCA ####[facility] ([id number])[address] [place] [address] 97565#### CANTGN ####[facility] ([id number])[address] [place] [address] 77853 Creatinine [Mass/Vol]1.75 mg/dLHigh0.40-1.00ProBaptist Saint Anthony'S HospitalComment on above:Result Comment: METHOD TRACEABLE TO IDMS STANDARDPerformed By: #### RUBEN, 6875-9, CBCA ####[facility] ([id number])[address] [place] [address] 26351#### CANTGN ####[facility] ([id number])[address] [place] [address] 40178WIR/1.73 sq M.predicted among non- blacks MDRD (S/P/Bld) [Vol rate/Area]29 mL/min/{1.73_m2}Low>59ProBaptist Saint Anthony'S HospitalComment on above:Result Comment: Reported eGFR is based on theCKD-EPI 2020 equation that doesnot use a race coefficient.Performed By: #### RUBEN, 6875- 9, CBCA ####[facility] ([id number])[address] [place] [address], [address] [place] [address] 50289#### CANTGN ####[facility] ([id number])[address] [place] [address] 75532Gumkjrj [Mass/Vol]291 mg/dLHigh 65-99ProBaptist Saint Anthony'S HospitalComment on above:Performed By: #### RUBEN, 6875-9, CBCA ####[facility] ([id number])[address] [place] [address], [address] [place] [address] 59615#### CANTGN ####[facility] ([id number])[address] [place] [address] 58819Swuugfogs [Moles/Vol]5.1 mmol/L High3.5-5.0ProBaptist Saint Anthony'S HospitalComment on above:Performed By: #### RUBEN, 6875-9, CBCA ####[facility] ([id number])[address] [place] [address], [address] [place] [address] 93392#### CANTGN ####[facility] ([id number])[address] [place] [address] 66437Luvzrsa [Mass/Vol]7.7 g/dLNormal 6.0-8.0ProBaptist Saint Anthony'S HospitalComment on above:Performed By: #### RUBEN, 6875- 9, CBCA ####[facility] ([id number])[address] [place] [address], [address] [place] [address] 63474#### CANTGN ####[facility] ([id number])[address] [place] [address] 51859Xerayi [Moles/Vol]134 mmol/LNormal 134-146ProBaptist Saint Anthony'S HospitalComment on above:Performed By: #### RUBEN, 6875- 9, CBCA ####[facility] ([id number])[address] [place] [address], [address] [place] [address] 55328#### CANTGN ####[facility] ([id number])[address] [place] [address] 14513Qcvp nitrogen [Mass/Vol]31 mg/dL High5-27ProBaptist Saint Anthony'S HospitalComment on above:Performed By: #### RUBEN, 6875- 9, CBCA ####[facility] ([id number])[address] [place] [address] [place] [address] 37442#### CANTGN ####[facility] ([id number])[address] [place] [address] 01927Mgejyh Ag 15-3 Qnon 24-36-3911ZL 15 313.6 U/mLNormal0.0-31.3PMercy HealthComment on above:Result Comment: The method used for this test is [employer] DXI chemiluminescent immunoassay.Values obtained by different assay methodscannot be used interchangeably.Performed By: #### RUBEN, 6875-9, CBCA ####[facility] ([id number])[address] [place] [address] 01545#### CANTGN ####[facility] ([id number])[address] [place] [address] 71825IZH AND AUTO DIFFon 31-43-3202ULGNIPKM BASOPHIL0.0 X10E9/L Normal0.0-0.2PMercy HealthComment on above:Performed By: #### CARMEN, 3040-01, CMP ####[facility] ([id number])[address] [place] [address] 50904FAMLLTCA NEUTROPHIL5.7 X10E9/LNormal1.5-6.6Bl[facility] Health SystemComment on above:Performed By: #### CARMEN 3040-01, CMP ####[facility] ([id number])[address] [place] [address] 73977Epooazbds/100 WBC (Bld)0.4 %NormalProBaptist Saint Anthony'S HospitalComment on above:Performed By: #### CARMEN 3040-01, CMP ####[facility] ([id number])[address] [place] [address] 96290Merpzxmyfqr (Bld) [#/Vol]0.0 10*3/uLNormal0.0-0.4[facility] Comment on above:Performed By: #### CARMEN 3040-01, CMP ####[facility] ([id number])[address] [place] [address] 56688 Eosinophils/100 WBC (Bld)0.4 %NormalBlanchard Valley Health SystemComment on above: Performed By: #### CARMEN 3040-01, CMP ####[facility] ([id number])[address] [place] [address] 89300Wegvxichdbt distribution width (RBC) [Ratio]16.0 %High11.5-15.0[facility] Comment on above:Performed By: #### CARMEN 3040-01, CMP ####[facility] ([id number])[address] [place] [address] 94987 Hematocrit (Bld) [Volume fraction]33.3 %Pzi64-02FaqXxpuvzBlanchard Valley Health System Comment on above:Performed By: #### CARMEN 3040-3, CMP ####[facility] ([id number])[address] [place] [address] 46898 Hemoglobin (Bld) [Mass/Vol]11.0 g/dLLow11.7-15.5PMercy Health Comment on above:Performed By: #### CARMEN, 3039-3, CMP ####[facility] ([id number])[address] [place] [address] 46631 Lymphocytes (Bld) [#/Vol]1.2 10*3/uLNormal1.0-3.5PMercy Health Comment on above:Performed By: #### CARMEN, 3040-01, CMP ####[facility] ([id number])[address] [place] [address] 38692 Lymphocytes/100 WBC (Bld)16.3 %NormalProBaptist Saint Anthony'S HospitalComment on above: Performed By: #### CARMEN, 3040-01, CMP ####[facility] ([id number])[address] [place] [address] 63782AQP (RBC) [Entitic mass]27.5 sqHoiibr28-18RfhBcpizyBaptist Saint Anthony'S HospitalComment on above: Performed By: #### CARMEN, 3, CMP ####[facility] ([id number])[address] [place] [address] 86997RGLD (RBC) [Mass/Vol]33.0 g/bVEllgyo22-66GuxLywniwBaptist Saint Anthony'S HospitalComment on above: Performed By: #### CARMEN, 3039-3, CMP ####[facility] ([id number])[address] [place] [address] 99620ZHX (RBC) [Entitic vol]83 lDUfwukx29-950QloVerwuj [facility]ont HospitalComment on above: Performed By: #### CARMEN, 3039-3, CMP ####[facility] ([id number])[address] [place] [address] [place] [address]Onjzadtlr (Bld) [#/Vol]0.5 10*3/uLNormal0-0.9[facility] SystemComment on above: Performed By: #### CARMEN, 3040-3, CMP ####[facility] ([id number])[address] [place] [address] 69428Crhhltlqa/100 WBC (Bld)6.2 %NormalBlanchard Valley Health SystemComment on above:Performed By: #### CARMEN, 0-3, CMP ####[facility] ([id number])[address] [place] [address] 07437Xzwkwnfjvjv/100 WBC (Bld)76.7 %Normal [facility] SystemComment on above:Performed By: #### CARMEN, 0-3, CMP ####[facility] ([id number])[address] [place] [address] 76033Sxalhbra mean volume (Bld) [Entitic vol]7.6 fLNormal7-12 [facility] SystemComment on above:Performed By: #### CARMEN, 3040-3, CMP ####[facility] ([id number])[address] [place] [address]53[address]Rovwgkppf (Bld) [#/Vol]309 10*3/xDCxwlbn515-954TprPxjzkb [facility] HospitalComment on above:Performed By: #### CARMEN, 3040-3, CMP ####[facility] ([id number])[address] [place] [address] 12555QTK COUNT4.00 X10E12/LNormal3.80-5.20[facility] SystemComment on above:Performed By: #### CARMEN, 3040-3, CMP ####[facility] ([id number])[address] [place] [address], [place] [address]SXL (Bld) [#/Vol]7.5 10*3/uLNormal4.0-11.0[facility] Health SystemComment on above:Performed By: #### CARMEN, 0-3, CMP ####[facility] ([id number])[address] [place] [address], [place] [address]APGLVBQEYCPYO METABOLIC PANELon 66-36-8522Qgbfohp [Mass/Vol]3.9 g/dLNormal3.2-5.3PMercy HealthComment on above:Performed By: #### CARMEN 3039-3, CMP ####[facility] ([id number])[address] [place] [address], [place] [address]KXW [Catalytic activity/Vol]110 U/EExjjqp77-240TacQznhwiBaptist Saint Anthony'S HospitalComment on above:Performed By: #### CARMEN 3039-3, CMP ####[facility] ([id number])[address] [place] [address], [place] [address]SLH [Catalytic activity/Vol]21 U/LNormal0-31PMercy HealthComment on above:Performed By: #### CARMEN, 3039-3, CMP ####[facility] ([id number])[address] [place] [address], [place] [address]Lrgub gap [Moles/Vol]12 mmol/LNormal5-15ProBaptist Saint Anthony'S HospitalComment on above:Performed By: #### CARMEN, 3039-3, CMP ####[facility] ([id number])[address] [place] [address], [place] [address]WIA [Catalytic activity/Vol]32 U/LNormal0-41ProBaptist Saint Anthony'S Hospital Comment on above:Performed By: #### CARMEN, 3039-3, CMP ####[facility] ([id number])[address] [place] [address], [place] [address] Bilirubin [Mass/Vol]0.6 mg/dLNormal0.3-1.2PMercy HealthComment on above:Performed By: #### CARMEN, 3040-3, CMP ####[facility] ([id number])[address] [place] [address], [place] [address]Mgpciju [Mass/Vol]9.4 mg/dLNormal8.5-10.5PMercy HealthComment on above: Performed By: #### CARMEN, 3039-3, CMP ####[facility] ([id number])[address] [place] [address], [place] [address]Eqcytnww [Moles/Vol]98 mmol/SLkongm60-837DkaQmtuwbBaptist Saint Anthony'S HospitalComment on above: Performed By: #### CARMEN 3, CMP ####[facility] [facility] ([id number])[address] [place] [address] 62103KV3 [Moles/Vol]25 mmol/TDyqkpt65-30SwuDgxsilMercy HealthComment on above:Performed By: #### CARMEN, 3, CMP ####[facility] ([id number])[address] [place] [address] 50032Zvziirzxis [Mass/Vol]1.32 mg/dLHigh0.40-1.00 ProMKaiser Permanente Medical CenterComment on above:Result Comment: METHOD TRACEABLE TO IDDE STANDARDPerformed By: #### CARMEN, 3040-3, CMP ####[facility] ([id number])[address] [place] [address], [place] [address]NQK/1.73 sq M.predicted among non-blacks MDRD (S/P/Bld) [Vol rate/Area]41 mL/min/{1.73_m2} Low>59ProBaptist Saint Anthony'S HospitalComment on above:Result Comment: Reported eGFR is based on theCKD-EPI 2020 equation that doesnot use a race coefficient. Performed By: #### CARMEN, 3040-3, CMP ####[facility] ([id number])[address] [place] [address], [place] [address]Naxkhhm [Mass/Vol]130 mg/ePHabm16-48HlkEgtgtgBlanchard Valley Health SystemComment on above:Performed By: #### CARMEN, 3039-3, CMP ####[facility] ([id number])[address] [place] [address], [place] [address]Altgrguqu [Moles/Vol]4.6 mmol/LNormal 3.5-5.0ProBaptist Saint Anthony'S HospitalComment on above:Performed By: #### CARMEN, 3039- 3, CMP ####[facility] ([id number])[address] [place] [address], [place] [address]Jhqlugu [Mass/Vol]8.4 g/dLHigh6.0-8.0Blanch[facility] Valley Health SystemComment on above:Performed By: #### CRAMEN, 0-3, CMP ####[facility] ([id number])[address] [place] [address], [place] [address]Fkoqxt [Moles/Vol]135 mmol/YPvsprb449-933JkgSzhagu [facility] HospitalComfresenius medical care at [facility] on above:Performed By: #### CARMEN, 0-3, CMP ####[facility] ([id number])[address] [place] [address], [place] [address]Angm nitrogen [Mass/Vol]26 mg/dLNormal5-27ProBaptist Saint Anthony'S HospitalComment on above:Performed By: #### CARMEN, 3039-3, CMP ####[facility] ([id number])[address] [place] [address], [place] [address]FV ABDOMEN AND PELVIS W CONTon 68-41-0992DU ABDOMEN AND PELVIS W CONTNormalProBaptist Saint Anthony'S HospitalLIPASEon 00-53-3899Rfwezw [Catalytic activity/Vol]27 U/BGuqohl21-18YjnWmftzv Effingham HospitalComment on above:Performed By: #### CBCA, 3040-3, CMP ####[facility] ([id number])[address] [place] [address], REPLACED BY [facility] [place], [place] [address]DKFHU CULTUREon 62-27-1386Mjpcelrc identified Cx Nom (U)CULTURE RESULTS >100,000 ORGANISMS/ML NORMAL UROGENITAL FLORANoOhio State Harding Hospital Comment on above:Performed By: #### 630-4 ####[facility] ([id number])[address] [facility] [facility], [address], [place] [address]WDW MACROSCOPIC NURon 55-00-1015RMZARBJGL NURNegativeNormalNEGBlanchard Valley Health SystemComment on above:Performed By: #### NUM ####[facility] ([id number])[address] [place] [address], REPLACED BY [facility] [place], [place] [address]AIIYY/HGB NURMODERATEAbnormalNEG [facility]cy Medical CenterComment on above:Performed By: #### NUM ####[facility] ([id number])[address] [place] [address], [place] [address]GEOVSGA NURNegativeNormalNEGBlanchard Valley Health SystemComment on above: Performed By: #### NUM ####[facility] ([id number])[address] [place] [address], [place] [address]ZLPBHHS NURNegativeNormalNEGProBaptist Saint Anthony'S HospitalComment on above:Performed By: #### NUM ####[facility] ([id number])[address] [place] [address], REPLACED BY [facility] [place] [address] LEUKOCYTE ESTERASE NURTraceAbnormalNEGProBaptist Saint Anthony'S HospitalComment on above:Performed By: #### NUM ####[facility] ([id number])[address] [place] [address], REPLACED BY [facility] [place], [place] [address]MGBGRVC NURPositiveAbnormalNEGBlanchard Valley Health SystemComment on above:Performed By: #### NUM ####[facility] ([id number])[address] [place] [address]GO MARYJO 5.6Aowzuj6.0-8.5PMercy HealthComment on above:Performed By: #### NUM ####[facility] ([id number])[address] [place] [address], [place] [address]UVREBZU KXJ326 mg/dLAbnormalNEGProBaptist Saint Anthony'S Hospital Comment on above:Performed By: #### NUM ####[facility] ([id number])[address] [place] [address], [place] [address]HKNRVUUR GRAVITY MARYJO>=1.534Ktggzk8.003-1.035ProBaptist Saint Anthony'S HospitalComment on above:Performed By: #### NUM ####[facility] ([id number])[address] [place] [address] 299[address]SKYWTAAEPITN NUR0.2 eu/dLNormal<1.1PMercy HealthComment on above:Performed By: #### NUM ####[facility] ([id number])[address] [place] [address], [place] [address]PYK AND AUTO DIFF on 45-77-9487UVMSIOXE BASOPHIL0.0 X10E9/LNormal0.0-0.2PMercy Health Comment on above:Performed By: #### 2639-3, 75361-2, 2157-04, CBCA, PINR, CMP ####[facility] ([id number])[address] [place] [address] 24674UQYUTDGC NEUTROPHIL5.7 X10E9/LNormal1.5-6.6ProBaptist Saint Anthony'S HospitalComment on above:Performed By: #### 2639-3, 31477-3, 2157-04, CBCA, PINR, CMP ####[facility] ([id number])[address] [place] [address], [place] [address]Lfrwyrndc/100 WBC (Bld)0.3 %NormalProBaptist Saint Anthony'S HospitalComment on above:Performed By: #### 2639-3, 21179-7, 2157-04, CBCA, PINR, CMP ####[facility] ([id number])[address] [place] [address] 935[address]Vmvyxagrhxt (Bld) [#/Vol]0.1 10*3/uLNormal0.0-0.4ProBaptist Saint Anthony'S HospitalComment on above:Performed By: #### 2639-3, 16652-6, 2157-04, CBCA, PINR, CMP ####[facility] ([id number])[address] [place] [address] 38595Fegebniuxls/100 WBC (Bld)0.8 %NormalProBaptist Saint Anthony'S HospitalComment on above:Performed By: #### 2639-3, 02327-5, 2157-04, CBCA, PINR, CMP ####[facility] ([id number])[address] [place] [address] 17047Lsqyhcblqrk distribution width (RBC) [Ratio]16.0 % High11.5-15.0ProBaptist Saint Anthony'S HospitalComment on above:Performed By: #### 2639- 3, 12722-4, 2157-04, CBCA, PINR, CMP ####[facility] ([id number])[address] [place] [address] 18585Ybnjvzogjh (Bld) [Volume fraction]33.4 %Kdu43-24VnyDvgvulBaptist Saint Anthony'S HospitalComment on above:Performed By: #### 2639-3, 17044-4, 2157-04, CBCA, PINR, CMP ####[facility] ([id number])[address] [place] [address] 56471Nufaokmegd (Bld) [Mass/Vol]11.0 g/dLLow11.7-15.5PMercy HealthComment on above: Performed By: #### 2639-3, 62496-2, 2157-04, CBCA, PINR, CMP ####[facility] ([id number])[address] [place] [address]97[address] Lymphocytes (Bld) [#/Vol]1.2 10*3/uLNormal1.0-3.5PMercy Health Comment on above:Performed By: #### 2639-3, 84256-9, 2157-04, CBCA, PINR, CMP ####[facility] ([id number])[address] [place] [address] 10563Uaodmtnajvi/100 WBC (Bld)15.7 %NormalProBaptist Saint Anthony'S HospitalComment on above:Performed By: #### 2639-3, 86668-9, 2157-04, CBCA, PINR, CMP ####[facility] ([id number])[address] [place] [address] 38455BOX (RBC) [Entitic mass]27.4 peLnencw01-69SgwKwpsylBaptist Saint Anthony'S HospitalComment on above:Performed By: #### 2639-3, 75559-3, 2157-04, CBCA, PINR, CMP ####[facility] ([id number])[address] [place] [address] 59979ENBK (RBC) [Mass/Vol]32.8 g/uTXzhevs20-45WvxVwfrvwBaptist Saint Anthony'S HospitalComment on above:Performed By: #### 2639-3, 42305-5, 2157-04, CBCA, PINR, CMP ####[facility] ([id number])[address] [place] [address] 42730HAI (RBC) [Entitic vol]83 pOQmjhnm40-742PceIcawwx [facility]ont HospitalComment on above:Performed By: #### 2639-3, 77883-7, 2157-04, CBCA, PINR, CMP ####[facility] ([id number])[address] [place] [address] 31199Dcfgcgein (Bld) [#/Vol]0.7 10*3/uLNormal0-0.9 [facility]cy Medical CenterComment on above:Performed By: #### 2639-3, 74790-1, 2157-04, CBCA, PINR, CMP ####[facility] ([id number])[address] [place] [address] 48323Cxqghrnkz/100 WBC (Bld)8.9 %NormalProBaptist Saint Anthony'S HospitalComfresenius medical care at [facility] on above:Performed By: #### 2639-3, 93974-4, 2157-04, CBCA, PINR, CMP ####[facility] ([id number])[address] [place] [address] 87798Eqcizdtteox/100 WBC (Bld)74.3 %NormalProBaptist Saint Anthony'S HospitalComment on above:Performed By: #### 2639-3, 97253-1, 2157-04, CBCA, PINR, CMP ####[facility] ([id number])[address] [place] [address] 57057Vjwtowij mean volume (Bld) [Entitic vol]8.1 fL Normal7-12ProMedica Mercy Medical CenterComment on above:Performed By: #### 2639-3, 82428-0, 2157-04, CBCA, PINR, CMP ####[facility] ([id number])[address] [place] [address] 68538Alorvsnxo (Bld) [#/Vol]295 10*3/fRXpbygc426-517PqsCigpsp [facility]cy Medical CenterComment on above:Performed By: #### 2639-3, 46185-8, 2157-04, CBCA, PINR, CMP ####[facility] ([id number])[address] [place] [address] 28212YTO COUNT4.01 X10E12/LNormal3.80-5.20ProBaptist Saint Anthony'S HospitalComment on above:Performed By: #### 2639-3, 53125-8, 2157-04, CBCA, PINR, CMP ####[facility] ([id number])[address] [place] [address] 77043ZED (Bld) [#/Vol] 7.7 10*3/uLNormal4.0-11.0[facility] Health SystemComment on above:Performed By: #### 2639-3, 75484-8, 2157-04, CBCA, PINR, CMP ####[facility] ([id number])[address] [place] [address] 687[address]NY [Catalytic activity/Vol]on 14-34-0152UHI34 U/JWfprwp91-485UuiSbpbhjBaptist Saint Anthony'S HospitalComment on above:Performed By: #### 2639-3, 84393-7, 2157-04, CBCA, PINR, CMP ####[facility] ([id number])[address] [place] [address] 83364VFRZQKIFTPRQB METABOLIC PANELon 44-93-8296Vcnhahc [Mass/Vol]3.8 g/dLNormal 3.2-5.3PMercy HealthComment on above:Performed By: #### 2639-3, 54561-8, 2157-04, CBCA, PINR, CMP ####[facility] ([id number])[address] [place] [address] 81647UTZ [Catalytic activity/Vol]110 U/WAjkgcu52-044LxiQxgxdoBaptist Saint Anthony'S HospitalComment on above:Performed By: #### 2639-3, 84030-0, 2157-04, CBCA, PINR, CMP ####[facility] ([id number])[address] [place] [address] 72955TLB [Catalytic activity/Vol]13 U/LNormal0-31PMercy HealthComment on above: Performed By: #### 2639-3, 48730-7, 2157-04, CBCA, PINR, CMP ####[facility] ([id number])[address] [place] [address] 12949Xqfgx gap [Moles/Vol]11 mmol/LNormal5-15[facility] SystemComment on above: Performed By: #### 2639-3, 58035-5, 2157-04, CBCA, PINR, CMP ####[facility] ([id number])[address] [place] [address] 21299NTW [Catalytic activity/Vol]24 U/LNormal0-41ProBaptist Saint Anthony'S HospitalComment on above:Performed By: #### 2639-3, 39798-6, 2157-04, CBCA, PINR, CMP ####[facility] ([id number])[address] [place] [address] 28577Frxbyublg [Mass/Vol]0.4 mg/dLNormal0.3-1.2PMercy HealthComment on above:Performed By: #### 2639-3, 41740-3, 2157-04, CBCA, PINR, CMP ####[facility] ([id number])[address] [place] [address] 99685Fyxtkqh [Mass/Vol]9.3 mg/dLNormal8.5-10.5PMercy HealthComment on above:Performed By: #### 2639-3, 22824-1, 2157-04, CBCA, PINR, CMP ####[facility] ([id number])[address] [place] [address] 03573Xupdhilj [Moles/Vol]101 mmol/LDdhoza51-116XbwTaonjoBaptist Saint Anthony'S HospitalComment on above:Performed By: #### 2639-3, 60219-0, 2157-04, CBCA, PINR, CMP ####[facility] ([id number])[address] [place] [address], [place] [address]US1 [Moles/Vol]27 mmol/LTwxtau43-82JznIsecuf [facility]cy Medical CenterComment on above:Performed By: #### 2639-3, 86972-7, 2157-04, CBCA, PINR, CMP ####[facility] ([id number])[address] [place] [address] 15085Huylrmmdbn [Mass/Vol]1.25 mg/dLHigh0.40-1.00 [facility]cy Medical CenterComment on above:Result Comment: METHOD TRACEABLE TO IDMS STANDARDPerformed By: #### 2639-3, 41950-9, 2157-04, CBCA, PINR, CMP ####[facility] ([id number])[address] [place] [address] 88545LYQ/1.73 sq M.predicted among non-blacks MDRD (S/P/Bld) [Vol rate/Area]44 mL/min/{1.73_m2}Low>59ProBaptist Saint Anthony'S HospitalComment on above:Result Comment: Reported eGFR is based on theCKD-EPI 2020 equation that doesnot use a race coefficient.Performed By: #### 2639-3, 68631-4, 2157-04, CBCA, PINR, CMP ####[facility] ([id number])[address] [place] [address], [place] [address]Pxuakcw [Mass/Vol]48 mg/dLCritically bzw37-72WgcJtwkkvBaptist Saint Anthony'S HospitalComment on above:Performed By: #### 2639-3, 77653-1, 2157-04, CBCA, PINR, CMP ####[facility] ([id number])[address] [place] [address] 85434Bxkquvnrs [Moles/Vol]3.9 mmol/LNormal3.5-5.0 [facility] SystemComment on above:Performed By: #### 2639-3, 51379-8, 2157-04, CBCA, PINR, CMP ####[facility] ([id number])[address] [place] [address] 52017Ireptde [Mass/Vol]7.9 g/dLNormal6.0-8.0 [facility] SystemComment on above:Performed By: #### 2639-3, 95709-8, 2157-04, CBCA, PINR, CMP ####[facility] ([id number])[address] [place] [address] 64192Klutsv [Moles/Vol]139 mmol/ADjrofz775-711 [facility] SystemComment on above:Performed By: #### 2639-3, 80901-4, 2157-04, CBCA, PINR, CMP ####[facility] ([id number])[address] [place] [address] 99011Burp nitrogen [Mass/Vol]18 mg/dLNormal5-27 [facility] SystemComment on above:Performed By: #### 2639-3, 90850-2, 2157-04, CBCA, PINR, CMP ####[facility] ([id number])[address] [place] [address], [place] [address]GW BRAIN WO CONTon 62-10-6700KG BRAIN WO CONTNormalProBaptist Saint Anthony'S HospitalCT CERVICAL SPINE WO CONTon 81-75-9964JR CERVICAL SPINE WO CONTNormalBlanchard Valley Health SystemGlucose Glucometer (BldC) [Mass/Vol]on 42-55-6514Hkczmtl [Mass/Vol]231 mg/yDZimk85-13IzbGfcnrzBlanchard Valley Health SystemGlucose [Mass/Vol]196 mg/kHIedl10-48VczKipckvBaptist Saint Anthony'S HospitalGlucose [Mass/Vol]66 mg/oVIhkoxi25-00WmjWbtzzjBaptist Saint Anthony'S HospitalGlucose [Mass/Vol]72 mg/xSIlfbkc13-73GtfTutmtnBaptist Saint Anthony'S HospitalGlucose [Mass/Vol]86 mg/jGNqftfr95-51 [facility]cy Medical CenterGlucose [Mass/Vol]49 mg/dLCritically tcu30-77HnuUhloijBlanchard Valley Health SystemMyoglobin [Mass/Vol]on 07-37-1867PEUMQ WJGVFZGXT87.6 ng/mLHigh 14.3-65.8ProBaptist Saint Anthony'S HospitalComment on above:Performed By: #### 2639-3, 33522-9, 2157-04, CBCA, PINR, CMP ####[facility] ([id number])[address] [place] [address] 17390CMWPFGU AND INRon 99-69-7803CFS Coag (PPP) [Relative time]1.0 {INR}Normal0.8-1.1PMercy Health Comment on above:Performed By: #### 2639-3, 95277-7, 7, CBCA, PINR, CMP ####[facility] ([id number])[address] [place] [address] 50215JM Coag (PPP) [Time]12.1 sNormal9.8-13.2PMercy HealthComment on above:Result Comment: NEW REFERENCE RANGEPerformed By: #### 2639-3, 58245-7, 7, CBCA, PINR, CMP ####[facility] ([id number])[address] [place] [address] 97584Iqgsfvxo I.cardiac High sensitivity method [Mass/Vol]on HOUR TROP I, HIGH UAUYDISGYAQ16 ng/LNormal<16ProBaptist Saint Anthony'S HospitalComment on above:Performed By: #### 01540-9 ####[facility] ([id number])[address] [place] [address], [facility] [place], [place] [address]WNALZFDZ I, HIGH AYHEQTEBYZL58 ng/LNormal<16 [facility] Medical CenterComment on above:Performed By: #### 2639-3, 12008-2, 2157-6, CBCA, PINR, CMP ####[facility] ([id number])[address] [place] [address], [facility] [place], [place] [address]EMZ MACROSCOPIC NURon 10-76-6900WCYRMGZAQ NURNegativeNormalNEGBlanchard Valley Health SystemComment on above:Performed By: #### NUM ####[facility] ([id number])[address] [place] [address], REPLACED BY [facility] [place], [place] [address]OBEMV/HGB NURTraceAbnormflNEGBlanchard Valley Health System Comment on above:Performed By: #### NUM ####[facility] ([id number])[address] [place] [address], REPLACED BY [facility] [place], [place] [address]THOFODV WTP266 mg/dLAbnormalNEGBlanchard Valley Health SystemComment on above:Performed By: #### NUM ####[facility] ([id number])[address] [place] [address], [place] [address]TURUNMI NURNegativeNormalNEGBlanchard Valley Health System Comment on above:Performed By: #### NUM ####[facility] ([id number])[address] [place] [address], REPLACED BY [facility] [place], [place] [address]SECSXGOAH ESTERASE NURSmallAbnormalNEGBlanchard Valley Health SystemComment on above:Performed By: #### NUM ####[facility] ([id number])[address] [place] [address], REPLACED BY [facility] [place], [place] [address]OJIRTIB NURNegativeNormalNEGProBaptist Saint Anthony'S HospitalComment on above:Performed By: #### NUM ####[facility] ([id number])[address] [place] [address], [place] [address]YH NUR6.0Normal 5.0-8.5PMercy HealthComment on above:Performed By: #### NUM ####[facility] ([id number])[address] [place] [address], [place] [address]TIXIBUS NUR30 mg/dLAbnormalNEGProBaptist Saint Anthony'S HospitalComment on above:Performed By: #### NUM ####[facility] ([id number])[address] [place] [address], [place] [address]RYSXIBZV GRAVITY NUR1.025Normal 1.003-1.035ProBaptist Saint Anthony'S HospitalComment on above:Performed By: #### NUM ####[facility] ([id number])[address] [place] [address]KKKAGMYKEKNW NUR0.2 eu/dLNormal<1.1PMercy Health Comment on above:Performed By: #### NUM ####[facility] ([id number])[address] [place] [address], [place] [address]UZY AND AUTO DIFF on 99-10-7355TILKGDXH BASOPHIL0.0 X10E9/LNormal0.0-0.2PMercy Health Comment on above:Performed By: #### CMP, CBCA, HA1C, 69723-7 ####[facility] ([id number])[address] [facility], [address], [place] [address]KFMUIVXT NEUTROPHIL3.3 X10E9/LNormal1.5-6.6[facility] SystemComment on above: Performed By: #### CMP, CBCA, HA1C, 79006-5 ####[facility] ([id number])[address] [facility], [address], [place] [address]Dbefqpkbe/100 WBC (Bld)0.7 %NormalProBaptist Saint Anthony'S HospitalComment on above:Performed By: #### CMP, CBCA, HA1C, 19573-5 ####[facility] ([id number])[address] [address], [place] [address]Lzrkxlrmity (Bld) [#/Vol]0.2 10*3/uLNormal0.0-0.4[facility] SystemComment on above:Performed By: #### RUBEN CBCDanielle, HADedrick, 79725-9 ####[facility] ([id number])[address] [address], [place] [address]Wmazrxjngbv/100 WBC (Bld)3.9 %NormalProBaptist Saint Anthony'S HospitalComment on above:Performed By: #### RUBEN CBCDanielle, HADedrick, 03323-6 ####[facility] ([id number])[address] [address] distribution width (RBC) [Ratio]15.7 %High11.5-15.0[facility] Comment on above:Performed By: #### RUBEN CBCDanielle, WALLY, 50899-5 ####[facility] ([id number])[address] [address]Hylevnnofm (Bld) [Volume fraction]32.2 %Rob79-02LkcDjrvhhBaptist Saint Anthony'S HospitalComment on above: Performed By: #### RUBEN CBCDanielle, HADedrick, 14546-4 ####[facility] ([id number])[address] [address]Ndesxvwnfr (Bld) [Mass/Vol] 10.4 g/dLLow11.7-15.5PMercy HealthComment on above:Performed By: #### RUBEN, CBCA, HA1C, 37772-0 ####[facility] ([id number])[address] [address] [place] [address]Xgkudcsiiqm (Bld) [#/Vol]1.5 10*3/uLNormal 1.0-3.5PMercy HealthComment on above:Performed By: #### CMP, CBCA, HA1C, 61361-6 ####[facility] ([id number])[address], [address] [place] [address]Msotneszqhe/100 WBC (Bld)26.6 %NormalProBaptist Saint Anthony'S HospitalComment on above:Performed By: #### CMP, CBCA, HA1C, 49169-8 ####[facility] ([id number])[address] [address], [address] [place] [address]ONX (RBC) [Entitic mass]27.9 srByjsqw49-86KntZfkariBlanchard Valley Health SystemComment on above:Performed By: #### CMP, CBCA, HA1C, 71421-0 ####[facility] ([id number])[address], [address] [place] [address]LXFG (RBC) [Mass/Vol] 32.2 g/gQAgkeee15-73RjkSbnfpiBlanchard Valley Health SystemComment on above:Performed By: #### CMP, CBCA, HA1C, 39594-8 ####[facility] ([id number])[address] [address] [place] [address]XTX (RBC) [Entitic vol]86 dYNrwavk96-069 [facility] SystemComment on above:Performed By: #### CMP, CBCA, HA1C, 86744-8 ####[facility] ([id number])[address] [address] [place] [address]Zngrhjcpb (Bld) [#/Vol]0.5 10*3/uLNormal0-0.9[facility] Health SystemComment on above:Performed By: #### CMP, CBCA, HA1C, 50867-2 ####[facility] ([id number])[address], [address] [place] [address]Jeyeakvmp/100 WBC (Bld)9.4 %NormalProBaptist Saint Anthony'S HospitalComment on above:Performed By: #### CMP, CBCA, HA1C, 38701-1 ####[facility] ([id number])[address] [address], [address] [place] [address]Nqwnmlsgnhv/100 WBC (Bld)59.4 %NormalProBaptist Saint Anthony'S HospitalComment on above:Performed By: #### CMP, CBCA, HA1C, 46021-1 ####[facility] ([id number])[address], [address] [place] [address] 19914Gzznfotx mean volume (Bld) [Entitic vol]8.9 fLNormal7-12ProMedica Mercy Medical CenterComment on above:Performed By: #### CMP, CBCA, HA1C, 27179-5 ####[facility] ([id number])[address], [address] [place] [address] 89383Efklepmni (Bld) [#/Vol]266 10*3/gVUyyogx079-995 ProMKaiser Permanente Medical CenterComment on above:Performed By: #### CMP, CBCA, HA1C, 73710-7 ####[facility] ([id number])[address], [address] [place] [address] 32690FCZ COUNT3.72 X10E12/LLow3.80-5.20[facility] Comment on above:Performed By: #### CMP, CBCA, HA1C, 38143-0 ####[facility] ([id number])[address], [address] [place] [address] 91219GFM (Bld) [#/Vol]5.6 10*3/uLNormal4.0-11.0[facility] SystemComment on above: Performed By: #### CMP, CBCA, HA1C, 46316-1 ####[facility] ([id number])[address], [address], [place] [address]BOCBYCZEQZRHJ METABOLIC PANELon 03-69-1930Bdjofbd [Mass/Vol]3.7 g/dLNormal3.2-5.3PChildren's Hospital Colorado HospitalComment on above:Performed By: #### CMP, CBCA, HA1C, 44056-8 ####[facility] ([id number])[address], [address], [place] [address]TTS [Catalytic activity/Vol]84 U/AJksqax71-719IzdZgwymgBaptist Saint Anthony'S HospitalComment on above:Performed By: #### CMP, CBCA, HA1C, 52409-1 ####[facility] ([id number])[address], [address], [place] [address]DQR [Catalytic activity/Vol]11 U/LNormal0-31PMercy HealthComment on above: Performed By: #### CMP, CBCA, HA1C, 00649-3 ####[facility] ([id number])[address], [address], [place] [address]Bqvip gap [Moles/Vol]7 mmol/LNormal5-15[facility] SystemComment on above:Performed By: #### CMP, CBCA, HA1C, 88884-8 ####[facility] ([id number])[address], [address], [place] [address]BBM [Catalytic activity/Vol]25 U/LNormal0-41 [facility] SystemComment on above:Performed By: #### CMP, CBCA, HA1C, 24445-6 ####[facility] ([id number])[address], [address], [place] [address]Wbcpqkidp [Mass/Vol]0.3 mg/dLNormal0.3-1.2PMercy HealthComment on above:Performed By: #### CMP, CBCA, HA1C, 75639-8 ####[facility] ([id number])[address] [address], [place] [address] Calcium [Mass/Vol]9.0 mg/dLNormal8.5-10.5PMercy HealthComment on above:Performed By: #### RUBEN, CBCA, HA1C, 75906-5 ####[facility] ([id number])[address] [address], [place] [address]Caxrimig [Moles/Vol]103 mmol/LCdhcoo16-108IgtJsqoleBaptist Saint Anthony'S HospitalComment on above:Performed By: #### RUBEN, CBCA, HA1C, 05842-2 ####[facility] ([id number])[address] [address], [place] [address]CN2 [Moles/Vol]28 mmol/KDmxdee50-41ZbjEsqefpMercy HealthComment on above:Performed By: #### RUBEN, CBCA, HA1C, 00881-0 ####[facility] ([id number])[address] [address], [place] [address]Kuqlrvhfyc [Mass/Vol]1.40 mg/dLHigh0.40-1.00[facility] Comment on above:Result Comment: METHOD TRACEABLE TO IDMS STANDARDPerformed By: #### RUBEN, CBCA, HA1C, 33358-3 ####[facility] ([id number])[address] [address]DSZ/1.73 sq M.predicted among non-blacks MDRD (S/P/Bld) [Vol rate/Area]39 mL/min/{1.73_m2}Low>59ProBaptist Saint Anthony'S HospitalComment on above:Result Comment: Reported eGFR is based on theCKD-EPI 2020 equation that doesnot use a race coefficient.Performed By: #### CMP, CBCA, HA1C, 23158-0 ####[facility] ([id number])[address], [address] [place] [address] 46[address]Srirlqk [Mass/Vol]201 mg/bGDflo27-15OeoGsrrmnBaptist Saint Anthony'S HospitalComment on above:Performed By: #### CARMEN MIRANDA HA1C, 00646-5 ####[facility] ([id number])[address], [address], [place] [address] Potassium [Moles/Vol]5.5 mmol/LHigh3.5-5.0[facility] SystemComment on above:Performed By: #### CARMEN MIRANDA HA1C, 32781-0 ####[facility] ([id number])[address], [address] [place] [address] 374[address]Jwrheap [Mass/Vol]6.9 g/dLNormal6.0-8.0ProBaptist Saint Anthony'S HospitalComment on above:Performed By: #### CARMEN MIRANDA HA1C, 63979-1 ####[facility] ([id number])[address], [address], [place] [address]Ahgfyh [Moles/Vol]138 mmol/PZjayti178-871 ProMKaiser Permanente Medical CenterComment on above:Performed By: #### CARMEN MIRANDA HA1C, 93895-2 ####[facility] ([id number])[address], [address] [place] [address] 75886Nkwn nitrogen [Mass/Vol]18 mg/dLNormal5-27ProBaptist Saint Anthony'S HospitalComment on above:Performed By: #### RUBEN CBCDanielle HADedrick, 25811-3 ####[facility] ([id number])[address], [address], [place] [address]PBV A1C (GLYCO-HGB)on 85-51-2568Bxloetd [Mass/Vol]217 mg/dLNormalProBaptist Saint Anthony'S HospitalComment on above:Performed By: #### CARMEN MIRANDA, HADedrick, 03169-6 ####[facility] ([id number])[address] [address]LcA6g (Bld) [Mass fraction]9.2 %High4.4-5.6[facility] Health SystemComment on above:Result Comment: NOTE ADA Guidelines Result HgbA1c Normal : less than 5.7 % Prediabetes : 5.7 % to 6.4 % Diabetes : > 6.4 %Use with caution in patients with abnormal hemoglobin variants asthe half-life of red blood cells and in vivo glycation rates areaffected.Performed By: #### RUBEN, CBCA, HA1C, 71723-8 ####[facility] ([id number])[address] [address]Vqxjk [address] panelon 83-48-3707Yhvgizljskz [Mass/Vol]133 mg/tUWlr636-408YxqIzzgaqBlanchard Valley Health System Comment on above:Performed By: #### RUBEN, CBCA, HA1C, 69414-8 ####[facility] ([id number])[address] [address]Wyxeykzbxsl in HDL [Mass/Vol]47 mg/dLNormal>39ProBaptist Saint Anthony'S HospitalComment on above: Result Comment: HDL <40 mg/dL - High RiskHDL > or = 40mg/dL- DesirableHDL >60 mg/dL - Negative Risk Performed By: #### RUBEN, CBCA, HA1C, 07884-7 ####[facility] ([id number])[address] [address]Tacvwpywhsm in LDL [Mass/Vol]70 mg/dLNormal <130ProBaptist Saint Anthony'S HospitalComment on above:Result Comment: LDL <100 mg/dL - DesirableLDL >160 mg/dL - High Risk Performed By: #### CARMEN MIRANDA, WALLY, 92695-5 ####[facility] ([id number])[address], [address] [place] [address]Zheyyszaivy in VLDL [Mass/Vol]16 mg/dLNormal0-30ProBaptist Saint Anthony'S HospitalComment on above:Performed By: #### CARMEN MIRANDA, HADedrick, 59705-5 ####[facility] ([id number])[address], [address] [place] [address] 685[address]YEHBUXACLJZ:HDL2.8Normal 1.0-5.0[facility] SystemComment on above:Performed By: #### CARMEN MIRANDA, WALLY, 03520-7 ####[facility] ([id number])[address], [address] [place] [address] 709[address]Refizijjbiey [Mass/Vol]82 mg/mECkyhhp35-693WimTybxlv [facility]remont HospitalComment on above:Performed By: #### CARMEN MIRANDA, HADedrick, 38678-8 ####[facility] ([id number])[address], [address] [place] [address] 08017LQF AND AUTO DIFFon 80-63-1523AAOURVVD BASOPHIL0.0 X10E9/LNormal0.0-0.2ProMedMenlo Park VA HospitalComment on above:Performed By: #### RUBEN, 55058-3, CBCA, 81623-4, 02863-6, PINR ####[facility] ([id number])[address] [place] [address] 84446UHKXFORE NEUTROPHIL5.1 X10E9/LNormal1.5-6.6ProBaptist Saint Anthony'S HospitalComment on above:Performed By: #### CMP, 51229-9, CBCA, 20453- 9, 58219-8, PINR ####[facility] ([id number])[address] [place] [address] 85794Pochpnvvn/100 WBC (Bld)0.4 %NormalBlanchard Valley Health SystemComment on above:Performed By: #### CMP, 16582-4, CBCA, 61590-1, 28531-0, PINR ####[facility] ([id number])[address] [place] [address] 22433Rprmnfdizre (Bld) [#/Vol]0.1 10*3/uLNormal0.0-0.4 [facility] SystemComment on above:Performed By: #### CMP, 17777-1, CBCA, 04784-3, 46832-7, PINR ####[facility] ([id number])[address] [place] [address] 47121Kmaujyzexbt/100 WBC (Bld)1.7 %Normal [facility] SystemComment on above:Performed By: #### CMP, 59518-9, CBCA, 49337-0, 81012-0, PINR ####[facility] ([id number])[address] [place] [address] 67226Poazeigqlee distribution width (RBC) [Ratio]15.9 %High11.5-15.0[facility] SystemComment on above:Performed By: #### CMP, 51522-6, CBCA, 68143-7, 42892-6, PINR ####[facility] ([id number])[address] [place] [address] 57827 Hematocrit (Bld) [Volume fraction]34.2 %Cut38-04EjzAyrkasBlanchard Valley Health System Comment on above:Performed By: #### CMP, 86746-0, CBCA, 89383-3, 30068-3, PINR ####[facility] ([id number])[address] [place] [address] 67612Upighcnigf (Bld) [Mass/Vol]11.1 g/dLLow11.7-15.5PMercy HealthComment on above:Performed By: #### CMP, 49646-6, CBCA, 95110-2, 40371-0, PINR ####[facility] ([id number])[address] [place] [address] 86305Vhtzvpuiegg (Bld) [#/Vol]1.6 10*3/uLNormal1.0-3.5 [facility] SystemComment on above:Performed By: #### CMP, 82919-4, CBCA, 71503-5, 69988-1, PINR ####[facility] ([id number])[address] [place] [address] 79982Qkaalbreosp/100 WBC (Bld)20.5 %Normal [facility] SystemComment on above:Performed By: #### CMP, 64605-2, CBCA, 60526-8, 73235-5, PINR ####[facility] ([id number])[address] [place] [address] 89860NER (RBC) [Entitic mass]27.5 pgNormal 27-34ProBaptist Saint Anthony'S HospitalComment on above:Performed By: #### CMP, 50965-7, CBCA, 51648-5, 11442-8, PINR ####[facility] ([id number])[address] [place] [address] 33104HEFO (RBC) [Mass/Vol]32.6 g/dLNormal 32-36ProBaptist Saint Anthony'S HospitalComment on above:Performed By: #### CMP, 97979-7, CBCA, 20927-1, 48503-7, PINR ####[facility] ([id number])[address] [place] [address] 88912SNK (RBC) [Entitic vol]85 fL Jwwmkt99-852YxxEpogwjBlanchard Valley Health SystemComment on above:Performed By: #### CMP, 35896-5, CBCA, 58821-4, 50672-6, PINR ####[facility] ([id number])[address] [place] [address] 59105Opijxqgfg (Bld) [#/Vol] 0.9 10*3/uLNormal0-0.9[facility] Health SystemComment on above:Performed By: #### CMP, 29945-4, CBCA, 32807-6, 27603-7, PINR ####[facility] ([id number])[address] [place] [address] 93155Fqjkcyqre/100 WBC (Bld)11.4 %NormalProBaptist Saint Anthony'S HospitalComment on above:Performed By: #### CMP, 54601-3, CBCA, 04249-2, 72050-0, PINR ####[facility] ([id number])[address] [place] [address] 24796Pvapyebkxpk/100 WBC (Bld)66.0 %NormalProBaptist Saint Anthony'S HospitalComment on above:Performed By: #### CMP, 61820-1, CBCA, 29242-1, 78565-7, PINR ####[facility] ([id number])[address] [place] [address] 88131Uipglksa mean volume (Bld) [Entitic vol]8.0 fLNormal7-12ProMedica Mercy Medical CenterComment on above:Performed By: #### CMP, 76158-9, CBCA, 43937-4, 22208-5, PINR ####[facility] ([id number])[address] [place] [address] 37847Huqtgorsg (Bld) [#/Vol]342 10*3/jKVsdoxq366-272CqbEemmkvBlanchard Valley Health System Comment on above:Performed By: #### CMP, 70552-6, CBCA, 42407-5, 16530-3, PINR ####[facility] ([id number])[address] [place] [address] 39771OAI COUNT4.04 X10E12/LNormal3.80-5.20ProBaptist Saint Anthony'S HospitalComment on above:Performed By: #### CMP, 31915-4, CBCA, 64357-6, 29181- 9, PINR ####[facility] ([id number])[address] [place] [address] 80735LVY (Bld) [#/Vol]7.7 10*3/uLNormal4.0-11.0ProBaptist Saint Anthony'S HospitalComment on above:Performed By: #### CMP, 98560-8, CBCA, 02822-7, 48938-2, PINR ####[facility] ([id number])[address] [place] [address] 24089XKTDHXNTPNKQE METABOLIC PANELon 40-76-5672Pbyexba [Mass/Vol]4.1 g/dLNormal3.2-5.3PMercy HealthComment on above: Performed By: #### CMP, 69991-4, CBCA, 17996-7, 14884-8, PINR ####[facility] ([id number])[address] [place] [address] 77851JON [Catalytic activity/Vol]108 U/YNuddyn82-595HauHzbyfkBlanchard Valley Health System Comment on above:Performed By: #### CMP, 34707-6, CBCA, 14103-5, 16791-2, PINR ####[facility] ([id number])[address] [place] [address] 98442LMN [Catalytic activity/Vol]18 U/LNormal0-31PMercy HealthComment on above:Performed By: #### CMP, 16109-2, CBCA, 97153-3, 22949-7, PINR ####[facility] ([id number])[address] [place] [address], [place] [address]Rhyfm gap [Moles/Vol]11 mmol/LNormal5-15ProBaptist Saint Anthony'S HospitalComment on above:Performed By: #### CMP, 63847-6, CBCA, 36963-9, 60508-5, PINR ####[facility] ([id number])[address] [place] [address], [place] [address]ARX [Catalytic activity/Vol]24 U/LNormal0-41 ProMedicOrange Coast Memorial Medical CenterComment on above:Performed By: #### CMP, 69875-2, CBCA, 91020-3, 52905-2, PINR ####[facility] ([id number])[address] [place] [address], [place] [address]Zcwmaujhi [Mass/Vol]0.6 mg/dLNormal 0.3-1.2PMercy HealthComment on above:Performed By: #### CMP, 26712- 4, CBCA, 68129-2, 44266-6, PINR ####[facility] ([id number])[address] [place] [address], [place] [address]Uifdpxj [Mass/Vol]9.2 mg/dLNormal 8.5-10.5PMercy HealthComment on above:Performed By: #### CMP, 03409-8, CBCA, 47680-6, 76085-4, PINR ####[facility] ([id number])[address] [place] [address], [place] [address]Imutghkp [Moles/Vol]99 mmol/VGsusdv69-778GbyGujslyBaptist Saint Anthony'S HospitalComment on above:Performed By: #### CMP, 05651-8, CBCA, 01441-7, 36048-4, PINR ####[facility] ([id number])[address] [place] [address], [place] [address]GE4 [Moles/Vol]26 mmol/RDuucsm30-30MxsBfimor [facility] HospitalComment on above:Performed By: #### RUBEN, 61943-0, CBCA, 37907-7, 10881-7, PINR ####[facility] ([id number])[address] [place] [address] 35767Cwrctxgmfb [Mass/Vol]1.67 mg/dLHigh0.40-1.00ProBaptist Saint Anthony'S HospitalComment on above: Result Comment: METHOD TRACEABLE TO IDMS STANDARDPerformed By: #### RUBEN, 14570- 4, CARMEN, 32880-2, 63238-7, PINR ####[facility] ([id number])[address] [place] [address], [place] [address]ETE/1.73 sq M.predicted among non-blacks MDRD (S/P/Bld) [Vol rate/Area]31 mL/min/{1.73_m2}Low>59ProBaptist Saint Anthony'S HospitalComment on above:Result Comment: Reported eGFR is based on theCKD-EPI 2020 equation that doesnot use a race coefficient.Performed By: #### RUBEN, 55802-7, CBCA, 55003-1, 51716-5, PINR ####[facility] ([id number])[address] [place] [address] 39586Udhgymq [Mass/Vol]239 mg/vOVrlf78-99NfiOetcvsBaptist Saint Anthony'S HospitalComment on above:Performed By: #### RUBEN, 79108-2, CBCA, 56638-4, 00158-7, PINR ####[facility] ([id number])[address] [place] [address], [place] [address] Potassium [Moles/Vol]4.2 mmol/LNormal3.5-5.0ProBaptist Saint Anthony'S HospitalComment on above:Performed By: #### RUBEN, 02547-5, CBCA, 90489-7, 74366-0, PINR ####[facility] ([id number])[address] [place] [address] 29616Esrbumq [Mass/Vol]8.1 g/dLHigh6.0-8.0ProBaptist Saint Anthony'S HospitalComment on above:Performed By: #### CMP, 83191-8, CBCA, 41370-1, 00669-6, PINR ####[facility] ([id number])[address] [place] [address] 65723Wbixpp [Moles/Vol]136 mmol/YXuxhpc414-360KgrPpmiht [facility] HospitalComment on above:Performed By: #### RUBEN, 53542-4, CBCA, , 48336-5, PINR ####[facility] ([id number])[address] [place] [address] 86753Tsbx nitrogen [Mass/Vol]24 mg/dLNormal5-27ProBaptist Saint Anthony'S HospitalComment on above:Performed By: #### RUBEN, 16402-2, CBCA, 38830-4, 19350-1, PINR ####[facility] ([id number])[address] [place] [address] 16808Vfaarkx (P obed) [Moles/Vol]on 13-72-0674ICEVZCF W/REFLEX1.5 mmol/LNormal0.4-2.0ProBaptist Saint Anthony'S HospitalComment on above:Result Comment: Result did not trigger repeat Lactate,re-order if needed.Performed By: #### 07459-3 ####[facility] ([id number])[address] [place] [address] 59237WPIKEVFEClw 31-53-2042Juovfinze [Mass/Vol]1.7 mg/dL Low1.8-2.6ProBaptist Saint Anthony'S HospitalComment on above:Performed By: #### CMP, 51320-8, CBCA, 03068-8, 42280-1, PINR ####[facility] ([id number])[address] [place] [address] 30584Nbvdqsclbgd peptide B [Mass/Vol]on 75-30-9982Hycfzklyvuk peptide B (Bld) [Mass/Vol]73 pg/mLNormal <100.0ProBaptist Saint Anthony'S HospitalComment on above:Performed By: #### CMP, 82188- 4, CBCA, 58969-2, 61466-2, PINR ####[facility] ([id number])[address] [place] [address] 87872XNUBGML AND INRon 92-93-7173PLX Coag (PPP) [Relative time]1.2 {INR}High0.8-1.1PMercy HealthComment on above:Performed By: #### CMP, 41536-6, CBCA, 42917-9, 92687-1, PINR ####[facility] ([id number])[address] [place] [address] 79788ZS Coag (PPP) [Time]13.4 sHigh9.8-13.2PMercy HealthComment on above:Result Comment: NEW REFERENCE RANGEPerformed By: #### CMP, 66410-7, CBCA, 11276-8, 85218-5, PINR ####[facility] ([id number])[address] [place] [address] 94067IWJZG CULTUREon 17-30-9125Zzubnoex identified Cx Nom (U)CULTURE RESULTS <10,000 ORGANISMS/ML NORMAL URO GENITAL FLORANormalBlanchard Valley Health System Comment on above:Performed By: #### 630-4 ####[facility] ([id number])[address] [place] [address], [address], [place] [address]YTH MACROSCOPIC NURon 13-34-1533EHSKRCWAL NURSmallAbnormalNEGProBaptist Saint Anthony'S HospitalComment on above:Performed By: #### NUM ####[facility] ([id number])[address] [place], [place] [address], [place] [address]KCSOR/HGB NURNegativeNormalNEG [facility]cy Medical CenterComment on above:Performed By: #### NUM ####[facility] ([id number])[address] [place] [address], REPLACED BY [facility] [place], [place] [address]PHJLBQG NURNegativeNormalNEGProBaptist Saint Anthony'S HospitalComment on above: Performed By: #### NUM ####[facility] ([id number])[address] [place] [address], REPLACED BY [facility] [place], [place] [address]PTIHAQZ NURNegativeNormalNEGProPomerene Hospitalca Mercy Medical CenterComment on above:Performed By: #### NUM ####[facility] ([id number])[address] [place] [address], REPLACED BY [facility] [place] [address] LEUKOCYTE ESTERASE NURNegativeNormalNEGProBaptist Saint Anthony'S HospitalComment on above:Performed By: #### NUM ####[facility] ([id number])[address] [place] [address], [place] [address]GVLJADF NURNegativeNormalNEGProBaptist Saint Anthony'S HospitalComment on above:Performed By: #### NUM ####[facility] ([id number])[address] [place] [address], REPLACED BY [facility] [place], [place] [address]SS MARYJO 6.7Zztvup5.0-8.5ProMedica Mercy Medical CenterComment on above:Performed By: #### NUM ####[facility] ([id number])[address] [place] [address], REPLACED BY [facility] [place], [place] [address]HENTRZL NUR30 mg/dLAbnormalNEGProBaptist Saint [facility]'S Hospital Comment on above:Performed By: #### NUM ####[facility] ([id number])[address] [place] [address], REPLACED BY [facility] [place], [place] [address]XLOZYIBH GRAVITY MARYJO>=1.919Qgovdr3.003-1.035ProBaptist Saint Anthony'S HospitalComment on above:Performed By: #### NUM ####[facility] ([id number])[address] [place] [address]EYVUSPLBBUCX NUR0.2 eu/dLNormal<1.1PMercy HealthComment on above:Performed By: #### NUM ####[facility] ([id number])[address] [place] [address]hZFT Coag (PPP) [Time]on 48-19-8682qBCK Coag (Bld) [Time]33 yQnoshx44-28FgsPlbpbaBaptist Saint Anthony'S HospitalComment on above:Result Comment: NEW REFERENCE RANGEPerformed By: #### CMP, 48143-8, CBCA, 68270-2, 21052-7, PINR ####[facility] ([id number])[address] [place] [address]MHK AND AUTO DIFF on 09-26-5949VZRTNWOR BASOPHIL0.0 X10E9/LNormal0.0-0.2PMercy Health Comment on above:Performed By: #### RUBEN MORALES, 1987-03 ####[facility] ([id number])[address] [place] [address]RYVKLFJE NEUTROPHIL4.5 X10E9/LNormal1.5-6.6Bl[facility] Health SystemComment on above: Performed By: #### RUBEN MORALES, 1987-03 ####[facility] ([id number])[address] [place] [address]Sxibwgsgn/100 WBC (Bld)0.6 %NormalProBaptist Saint Anthony'S HospitalComment on above:Performed By: #### RUBEN MORALES, 1987-03 ####[facility] ([id number])[address] [place] [address]Ygnvnufwopu (Bld) [#/Vol]0.1 10*3/uLNormal 0.0-0.4Bl[facility] Valley Health SystemComment on above:Performed By: #### RUBEN MORALES, 1987-03 ####[facility] ([id number])[address] [place] [address] 77[address]Mrcmxxpgkez/100 WBC (Bld)1.8 %NormalBlanchard Valley Health SystemComment on above:Performed By: #### [facility], 1987-03 ####[facility] ([id number])[address] [place] [address]Ontnicnalsz distribution width (RBC) [Ratio]15.3 %High11.5-15.0Bl[facility] Valley Health SystemComment on above:Performed By: #### RUBEN MORALES, 1987-03 ####[facility] ([id number])[address] [place] [address] 70859Tmifpuccpv (Bld) [Volume fraction]31.8 %Pwg73-75RroNfongcBaptist Saint Anthony'S HospitalComment on above:Performed By: #### RUBEN MORALES, 1987-03 ####[facility], [facility] ([id number])[address] [place] [address] 35016Ptzfasbkip (Bld) [Mass/Vol]10.6 g/dLLow11.7-15.5PMercy HealthComment on above:Performed By: #### RUBEN MORALES, 1987-03 ####[facility] ([id number])[address] [place] [address] 15232Pypptczifcr (Bld) [#/Vol]1.7 10*3/uLNormal1.0-3.5PMercy HealthComfresenius medical [facility] on above:Performed By: #### RUBEN MORALES, 1987-03 ####[facility] ([id number])[address] [place] [address] 53818Dabzdnaljpp/100 WBC (Bld)24.2 %NormalBlanchard Valley Health SystemComment on above:Performed By: #### RUBEN MORALES, 1987-03 ####[facility] ([id number])[address] [place] [address] 40187MEW (RBC) [Entitic mass]28.0 ioGsucqe91-29FtpFctgzdBlanchard Valley Health SystemComment on above:Performed By: #### RUBEN MORALES, 1987-03 ####[facility] ([id number])[address] [place] [address] 52448FYYN (RBC) [Mass/Vol]33.3 g/kVIggbly22-85SvrSoqvxwBaptist Saint Anthony'S HospitalComment on above: Performed By: #### RUBEN MORALES, 1987-03 ####[facility] ([id number])[address] [place] [address] 90196FUZ (RBC) [Entitic vol]84 eBZwelmh28-390TkoUqzole Fremont HospitalComment on above: Performed By: #### [facility], 1988-03 ####[facility] ([id number])[address] [place] [address] 88369Xflycqcrd (Bld) [#/Vol]0.7 10*3/uLNormal0-0.9Blanchard Valley Health SystemComment on above: Performed By: #### RUBEN MORALES, 1987-03 ####[facility] ([id number])[address] [place] [address] 22062Uhmrwsita/100 WBC (Bld)10.6 %NormalProBaptist Saint Anthony'S HospitalComment on above:Performed By: #### RUBEN MORALES, 1987-03 ####[facility] ([id number])[address] [place] [address] 37590Yerrknfvlod/100 WBC (Bld)62.8 %Normal Pro[facility]ica Mercy Medical CenterComment on above:Performed By: #### RUBEN MORALES, 1987-03 ####[facility] ([id number])[address] [place] [address] 56565Zdfuayip mean volume (Bld) [Entitic vol]7.9 fLNormal7-12 [facility] Valley Health SystemComment on above:Performed By: #### RUBEN MORALES, 1987-03 ####[facility] ([id number])[address] [place] [address] 92912Fmedlpvyk (Bld) [#/Vol]344 10*3/zCOagkyw165-861IlrAieoan Fremont HospitalComment on above:Performed By: #### RUBEN MORALES, 1987-03 ####[facility] ([id number])[address] [place] [address] 32353RBG COUNT3.77 X10E12/LLow3.80-5.20Bl[facility] Valley Health SystemComment on above:Performed By: #### RUBEN MORALES, 1987-03 ####[facility] ([id number])[address] [place] [address] 74929IKR (Bld) [#/Vol]7.1 10*3/uLNormal4.0-11.0Bl[facility] Valley Health SystemComment on above:Performed By: #### RUBEN MORALES, 1987-03 ####[facility] ([id number])[address] [place] [address] 99653OHSLGQKZEXDOV METABOLIC PANELon 68-91-3938Njluibp [Mass/Vol]3.9 g/dLNormal3.2-5.3ProMedMenlo Park VA HospitalComment on above:Performed By: #### RUBEN MORALES, 1987-03 ####[facility] ([id number])[address] [place] [address] 84431JHM [Catalytic activity/Vol]106 U/GXovpet56-372FigMxtuarBlanchard Valley Health SystemComment on above:Performed By: #### RUBEN MORALES, 1987-03 ####[facility] ([id number])[address] [place] [address], [facility] [place], [place] [address]ULC [Catalytic activity/Vol]17 U/LNormal0-31PMercy HealthComment on above:Performed By: #### RUBEN MORALES, 1987-03 ####[facility] ([id number])[address] [place] [address] [place], [place] [address]Vgdll gap [Moles/Vol]10 mmol/LNormal5-15ProBaptist Saint Anthony'S HospitalComment on above:Performed By: #### RUBEN MORALES, 1987-03 ####[facility] ([id number])[address] [place] [address], [place] [address]IQI [Catalytic activity/Vol]23 U/LNormal0-41ProBaptist Saint Anthony'S Hospital Comment on above:Performed By: #### RUBEN MORALES, 1987-03 ####[facility] ([id number])[address] [place] [address], [place] [address] Bilirubin [Mass/Vol]0.5 mg/dLNormal0.3-1.2PMercy HealthComment on above:Performed By: #### RUBEN MORALES, 1987-03 ####[facility] ([id number])[address] [place] [address], [place] [address]Vtkfpdo [Mass/Vol]9.2 mg/dLNormal8.5-10.5PMercy HealthComment on above: Performed By: #### RUBEN MORALES, 1987-03 ####[facility] ([id number])[address] [place] [address], [place] [address]Nwbvrybb [Moles/Vol]101 mmol/QXfunay80-890AvzWsflrmBaptist Saint Anthony'S HospitalComment on above: Performed By: #### RUBEN MORALES, 1987-03 ####[facility] ([id number])[address] [place] [address] [place], [place] [address]UI5 [Moles/Vol]26 mmol/ALfbhlc07-89TiaVfshbt Mercy Medical CenterComment on above:Performed By: #### RUBEN MORALES, 1987-03 ####[facility] ([id number])[address] [place] [address] 27127Niteolvdch [Mass/Vol]1.29 mg/dLHigh0.40-1.00 ProMedica Mercy Medical CenterComment on above:Result Comment: METHOD TRACEABLE TO IDMS STANDARDPerformed By: #### RUBEN MORALES, 1987-03 ####[facility] ([id number])[address] [place] [address] 41386TAJ/1.73 sq M.predicted among non-blacks MDRD (S/P/Bld) [Vol rate/Area]42 mL/min/{1.73_m2} Low>59ProBaptist Saint Anthony'S HospitalComment on above:Result Comment: Reported eGFR is based on theCKD-EPI 2020 equation that doesnot use a race coefficient. Performed By: #### RUBEN MORALES, 1987-03 ####[facility] ([id number])[address] [place] [address] 06215Mamriyf [Mass/Vol]212 mg/aWCbyl43-09PbpMvigbxBaptist Saint Anthony'S HospitalComment on above:Performed By: #### RUBEN MORALES, 1987-03 ####[facility] ([id number])[address] [place] [address] 11528Kfwjincuz [Moles/Vol]4.2 mmol/LNormal 3.5-5.0ProBaptist Saint Anthony'S HospitalComment on above:Performed By: #### RUBEN MORALES, 1987-03 ####[facility] ([id number])[address] [place] [address] 26691Nivazqs [Mass/Vol]7.8 g/dLNormal6.0-8.0ProBaptist Saint Anthony'S HospitalComment on above:Performed By: #### RUBEN MORALES, 1987-03 ####[facility] ([id number])[address] [place] [address] 93557Juwvpk [Moles/Vol]137 mmol/KDxrfse869-271QtaZywmyr Fremont HospitalComment on above:Performed By: #### [facility], 1988-03 ####[facility] ([id number])[address] [place] [address] 48377Iudz nitrogen [Mass/Vol]18 mg/dLNormal5-27ProBaptist Saint Anthony'S HospitalComment on above:Performed By: #### [facility], 1988-03 ####[facility] ([id number])[address] [place] [address] 19207VQN [Mass/Vol]on 11-17-2024 REACTIVE PROTEIN2.4 mg/dLHigh0.000-0.744PMercy HealthComment on above: Performed By: #### [facility], 1988-03 ####[facility] ([id number])[address] [place] [address] 19204Ncspfso (P obed) [Moles/Vol]on 10-18-9626EHVIXRC W/REFLEX1.2 mmol/LNormal0.4-2.0Blanchard Valley Health SystemComment on above:Result Comment: Result did not trigger repeat Lactate,re-order if needed.Performed By: #### 72759-0 ####[facility] ([id number])[address] [place] [address] 47712QDHVR CULTUREon 75-79-8924Lhrsgopj identified Cx Nom (U)CULTURE RESULTS 50,000 to 100,000 ORGANISMS/mL BEVERLY GLABRATA <10,000 ORGANISMS/mL NORMAL URO GENITAL FLORANormalProBaptist Saint Anthony'S HospitalComment on above: Performed By: #### 630-4 ####[facility] ([id number])[address] [facility], [address], [place] [address]DJK MACROSCOPIC NURon 07-32-9357RMCIMJSJK NURNegativeNormalNEGProBaptist Saint Anthony'S HospitalComment on above:Performed By: #### NUM ####[facility] ([id number])[address] [place] [address], [place] [address]SYWIC/HGB NURTraceAbnormalMercy Health Fairfield Hospital Comment on above:Performed By: #### NUM ####[facility] ([id number])[address] [place] [address] [place] [address]JSUGCQQ MARYJO NegativeNormalNEGProBaptist Saint Anthony'S HospitalComment on above:Performed By: #### NUM ####[facility] ([id number])[address] [place] [address] [place] [address]RKETXZE NURNegativeNormalNEGBlanchard Valley Health System Comment on above:Performed By: #### NUM ####[facility] ([id number])[address] [place] [address] [place] [address]BUJJSLGDA ESTERASE NURTraceAbnormalNEGBlanchard Valley Health SystemComment on above:Performed By: #### NUM ####[facility] ([id number])[address] [place] [address] [place] [address]GFDZDRF NURNegativeNormalNEGProBaptist Saint Anthony'S HospitalComment on above:Performed By: #### NUM ####[facility] ([id number])[address] [place] [address] [place] [address]HT NUR7.0Normal 5.0-8.5ProMedica Mercy Medical CenterComment on above:Performed By: #### NUM ####[facility] ([id number])[address] [place] [address] [place] [address]AXLNQVS QMH148 mg/dLAbnormalNEGProBaptist Saint Anthony'S HospitalComment on above:Performed By: #### NUM ####[facility] ([id number])[address] [place] [address] 04519LKTVQIMI GRAVITY MARYJO>=1.030Normal 1.003-1.035ProBaptist Saint Anthony'S HospitalComment on above:Performed By: #### NUM ####[facility] ([id number])[address] [place] [address] 558[address]ULAEODMKISHT NUR0.2 eu/dLNormal<1.1PMercy Health Comment on above:Performed By: #### NUM ####[facility] ([id number])[address] [place] [address], [place] [address]XED AND AUTO DIFF on 71-61-6745PEXTOZXB BASOPHIL0.1 X10E9/LNormal0.0-0.2PMercy Health Comment on above:Performed By: #### RUBEN, , CBCA ####[facility] ([id number])[address] [place] [address] 59351NOIFHEJH NEUTROPHIL4.4 X10E9/LNormal1.5-6.6Bl[facility] Valley Health SystemComment on above: Performed By: #### RUBEN, , CBCA ####[facility] ([id number])[address] [place] [address] 19056Uesaqxcpb/100 WBC (Bld)0.9 %NormalBlanchard Valley Health SystemComment on above:Performed By: #### RUBEN, , CBCA ####[facility] ([id number])[address] [place] [address] 85055Yvlawkpkmst (Bld) [#/Vol]0.2 10*3/uLNormal 0.0-0.4Bl[facility] Valley Health SystemComment on above:Performed By: #### RUBEN, , CBCA ####[facility] ([id number])[address] [place] [address] 66001Udrcxbdcsxr/100 WBC (Bld)3.2 %NormalBlanchard Valley Health SystemComment on above:Performed By: #### RUBEN, , CBCA ####[facility] ([id number])[address] [place] [address] 94512Bwhfdehsajv distribution width (RBC) [Ratio]15.6 %High11.5-15.0Blanch[facility] Valley Health SystemComment on above:Performed By: #### RUBEN, , CBCA ####[facility] ([id number])[address] [place] [address] 33639Vsiqybgbod (Bld) [Volume fraction]29.8 %Qkt01-63XapZvgdhuBaptist Saint Anthony'S HospitalComment on above:Performed By: #### RUBEN, , CBCA ####[facility] ([id number])[address] [place] [address] 67151Jaehxwvbrp (Bld) [Mass/Vol]9.8 g/dLLow11.7-15.5PMercy HealthComment on above:Performed By: #### RUBEN, , CBCA ####[facility] ([id number])[address] [place] [address] 79089Pfhhckyeojm (Bld) [#/Vol]2.1 10*3/uLNormal1.0-3.5PMercy HealthComfresenius medical care at [facility] on above:Performed By: #### RUBEN, , CBCA ####[facility] ([id number])[address] [place] [address] 12181Hclshpkmzxj/100 WBC (Bld)27.1 %NormalProBaptist Saint Anthony'S HospitalComment on above:Performed By: #### RUBEN, , CBCA ####[facility] ([id number])[address] [place] [address] 21939SQK (RBC) [Entitic mass]28.0 poZcjzgt46-15IwqEditejBaptist Saint Anthony'S HospitalComment on above:Performed By: #### RUBEN, , CBCA ####[facility] ([id number])[address] [place] [address] 98434FCKR (RBC) [Mass/Vol]33.0 g/gCMdrpim68-45ZioPvxvfyBlanchard Valley Health SystemComment on above: Performed By: #### RUBEN, , CBCA ####[facility] ([id number])[address] [place] [address] 54207SOL (RBC) [Entitic vol]85 xPIoszyz38-335PjpIivqrcBlanchard Valley Health SystemComment on above: Performed By: #### RUBEN, , CBCA ####[facility] ([id number])[address] [place] [address] 65874Pkxtjlink (Bld) [#/Vol]0.8 10*3/uLNormal0-0.9Bl[facility] Valley Health SystemComfresenius medical care at [facility] on above: Performed By: #### RUBEN, , CBCA ####[facility] ([id number])[address] [place] [address] 33946Jckajgpwk/100 WBC (Bld)10.5 %NormalBlanchard Valley Health SystemComfresenius medical care [facility] on above:Performed By: #### RUBEN, , CBCA ####[facility] ([id number])[address] [place] [address] 33902Wnwzguhvgnz/100 WBC (Bld)58.3 %Normal ProMKaiser Permanente Medical CenterComment on above:Performed By: #### RUBEN, , CBCA ####[facility] ([id number])[address] [place] [address] 60853Gwyqztto mean volume (Bld) [Entitic vol]8.6 fLNormal7-12 [facility] SystemComment on above:Performed By: #### RUBEN, , CBCA ####[facility] ([id number])[address] [place] [address], [place] [address]Ahmgcespe (Bld) [#/Vol]268 10*3/sTDsnnma400-106HxyTjizgw [facility]ont HospitalComment on above:Performed By: #### RUBEN, , CBCA ####[facility] ([id number])[address] [place] [address] 21964OBR COUNT3.52 X10E12/LLow3.80-5.20ProBaptist Saint Anthony'S HospitalComment on above:Performed By: #### RUBEN, , CBCA ####[facility] ([id number])[address] [place] [address] 98192BNN (Bld) [#/Vol]7.6 10*3/uLNormal4.0-11.0ProBaptist Saint Anthony'S HospitalComment on above:Performed By: #### RUBEN, , CBCA ####[facility] ([id number])[address] [place] [address] 00254DUXJRUKFQTYVL METABOLIC PANELon 74-00-4011Mfqkywv [Mass/Vol]3.7 g/dLNormal3.2-5.3PMercy HealthComment on above:Performed By: #### RUBEN, , CBCA ####[facility] ([id number])[address] [place] [address] 56769UKJ [Catalytic activity/Vol]90 U/YJazice01-295QcqYisfqrBlanchard Valley Health SystemComment on above:Performed By: #### RUBEN, , CBCA ####[facility] ([id number])[address] [place] [address] [place] [address]KDR [Catalytic activity/Vol]16 U/LNormal0-31ProMedMenlo Park VA HospitalComment on above:Performed By: #### RUBEN, , CBCA ####[facility] ([id number])[address] [place] [address], [place] [address]Gckaf gap [Moles/Vol]9 mmol/LNormal5-15ProBaptist Saint Anthony'S HospitalComment on above:Performed By: #### RUBEN, , CBCA ####[facility] ([id number])[address] [place] [address], [place] [address]FMB [Catalytic activity/Vol]17 U/LNormal0-41[facility] Comment on above:Performed By: #### RUBEN, , CBCA ####[facility] ([id number])[address] [place] [address], [place] [address] Bilirubin [Mass/Vol]0.5 mg/dLNormal0.3-1.2PMercy HealthComment on above:Performed By: #### RUBEN, , CBCA ####[facility] ([id number])[address] [place] [address], [place] [address]Znkrqbl [Mass/Vol]8.9 mg/dLNormal8.5-10.5PMercy HealthComment on above: Performed By: #### RUBEN, , CBCA ####[facility] ([id number])[address] [place] [address], [place] [address]Topmkwya [Moles/Vol]101 mmol/KOjsnlp28-449FipYmbwheBaptist Saint Anthony'S HospitalComment on above: Performed By: #### RUBEN, , CBCA ####[facility] ([id number])[address] [place] [address], [place] [address]EM2 [Moles/Vol]25 mmol/IBtcgsm42-21JcoVcqngeMercy HealthComment on above:Performed By: #### RUBEN, , CBCA ####[facility] ([id number])[address] [place] [address], [place] [address]Iekidlutec [Mass/Vol]1.38 mg/dLHigh0.40-1.00 [facility] Health SystemComment on above:Result Comment: METHOD TRACEABLE TO IDMS STANDARDPerformed By: #### RUBEN, , CBCDanielle ####[facility] ([id number])[address] [place] [address], [place] [address]LVA/1.73 sq M.predicted among non-blacks MDRD (S/P/Bld) [Vol rate/Area]39 mL/min/{1.73_m2} Low>59ProBaptist Saint Anthony'S HospitalComment on above:Result Comment: Reported eGFR is based on theCKD-EPI 2020 equation that doesnot use a race coefficient. Performed By: #### RUBEN, , CBCA ####[facility] ([id number])[address] [place] [address] 38230Vckdsly [Mass/Vol]146 mg/vYZkkb54-08LekVrshojBaptist Saint Anthony'S HospitalComment on above:Performed By: #### RUBEN, , CBCA ####[facility] ([id number])[address] [place] [address] 08951Aqftssbkq [Moles/Vol]4.2 mmol/LNormal 3.5-5.0ProBaptist Saint Anthony'S HospitalComment on above:Performed By: #### RUBEN, , CBCA ####[facility] ([id number])[address] [place] [address], [place] [address]Vpjyqdb [Mass/Vol]7.1 g/dLNormal6.0-8.0[facility] Valley Health SystemComment on above:Performed By: #### RUBEN, , CBCA ####[facility] ([id number])[address] [place] [address], [place] [address]Kzsfqh [Moles/Vol]135 mmol/PYzroof892-279WceNjggtu [facility] HospitalComment on above:Performed By: #### RUBEN, 58568-5, CBCA ####[facility] ([id number])[address] [place] [address] 20881Euwo nitrogen [Mass/Vol]22 mg/dLNormal04-10ProBaptist Saint Anthony'S HospitalComment on above:Performed By: #### RUBEN, 07447-3, CBCDanielle ####[facility] ([id number])[address] [place] [address] 966[address]Ogsjbzh Glucometer (BldC) [Mass/Vol]on 84-47-9327Ikygjya [Mass/Vol]337 mg/nYUlub16-02DmsXhahakBlanchard Valley Health System MAGNESIUMon 00-93-4797Fkmjhssmp [Mass/Vol]2.4 mg/dLNormal1.8-2.6Bl[facility] Health SystemComment on above:Performed By: #### RUBEN, , CBCDanielle ####[facility] ([id number])[address] [place] [address] 75205PVELQ CULTUREon 80-83-7530Wlplzevz identified Aer cx Nom (Bld)CULTURE RESULTS NO GROWTH 5 DAYSNoOhio State Harding HospitalBacteria identified Aer cx Nom (Bld)CULTURE RESULTS NO GROWTH 5 DAYSNoOhio State Harding HospitalCBC AND AUTO DIFFon 11-09-2024 ABSOLUTE BASOPHIL0.0 X10E9/LNormal0.0-0.2ProMedMenlo Park VA HospitalComment on above:Performed By: #### RUBEN, 57150-2, CBCDanielle, 17014-6, 79210-2 ####[facility] ([id number])[address] [place] [address] 86050YDDXLRVD NEUTROPHIL4.6 X10E9/LNormal1.5-6.6[facility] Comment on above:Performed By: #### RUBEN, 36729-6, CBCA, , 97914-7 ####[facility] ([id number])[address] [place] [address] 63885Jnsnydjdi/100 WBC (Bld)0.5 %NormalProBaptist Saint Anthony'S HospitalComment on above:Performed By: #### CMP, 38397-3, CBCA, 55445-7, 81852-8 ####[facility] ([id number])[address] [place] [address] 31302Pofodnirraw (Bld) [#/Vol]0.1 10*3/uLNormal0.0-0.4Bl[facility] Health SystemComment on above:Performed By: #### RUBEN, 72070-2, CBCA, , 27769-7 ####[facility] ([id number])[address] [place] [address] 70237Lzjarkmutvz/100 WBC (Bld)1.7 %NormalProBaptist Saint Anthony'S HospitalComment on above:Performed By: #### RUBEN, 38506-5, CBCA, , 30588-2 ####[facility] ([id number])[address] [place] [address] 75451Lwnlxtyjwmi distribution width (RBC) [Ratio]15.3 %High 11.5-15.0ProBaptist Saint Anthony'S HospitalComment on above:Performed By: #### RUBEN, 98795-6, CBCA, , 21241-3 ####[facility] ([id number])[address] [place] [address] 35381Bqfcoqpyem (Bld) [Volume fraction]29.6 %Qdy19-76PytByadeiBaptist Saint Anthony'S HospitalComment on above:Performed By: #### CMP, 85327-8, CBCA, 55550-8, 84121-5 ####[facility] ([id number])[address] [place] [address] 69361Moydbylpep (Bld) [Mass/Vol]10.1 g/dLLow11.7-15.5PMercy HealthComment on above: Performed By: #### CMP, 35015-8, CBCA, 26235-2, 20011-3 ####[facility] ([id number])[address] [place] [address] 84061 Lymphocytes (Bld) [#/Vol]2.1 10*3/uLNormal1.0-3.5PMercy Health Comment on above:Performed By: #### CMP, 71169-4, CBCA, 36201-3, 23451-6 ####[facility] ([id number])[address] [place] [address] 14608Eawujxgewev/100 WBC (Bld)27.4 %NormalProBaptist Saint Anthony'S HospitalComment on above:Performed By: #### CMP, 94829-9, CBCA, , 67266-4 ####[facility] ([id number])[address] [place] [address] 56375ASU (RBC) [Entitic mass]28.9 txLxaqzx44-45KkaQrapqcBaptist Saint Anthony'S HospitalComment on above:Performed By: #### CMP, 82002-6, CBCA, , 88269-4 ####[facility] ([id number])[address] [place] [address] 07898XBHX (RBC) [Mass/Vol]34.3 g/vVYefvyd43-87DosCxtcqiBaptist Saint Anthony'S HospitalComment on above:Performed By: #### CMP, 03546-9, CBCA, 08977-7, 15905- 7 ####[facility] ([id number])[address] [place] [address] 91320WAM (RBC) [Entitic vol]84 sDQslfke08-617SqjFtzbht Fremont HospitalComment on above:Performed By: #### CMP, 30256-7, CBCA, 96155-6, 82669-7 ####[facility] [facility] ([id number])[address] [place] [address] 36648Cnanvaoda (Bld) [#/Vol]0.9 10*3/uLNormal0-0.9[facility] Health SystemComment on above:Performed By: #### CMP, 44303-9, CBCA, 08920-0, 54436-2 ####[facility] ([id number])[address] [place] [address] 41657Gauovakcd/100 WBC (Bld)11.3 %NormalProBaptist Saint Anthony'S HospitalComment on above:Performed By: #### CMP, 36093-0, CBCA, 19607-5, 66650-5 ####[facility] ([id number])[address] [place] [address] 68921Dksxfhyzwmq/100 WBC (Bld)59.1 %NormalProBaptist Saint Anthony'S HospitalComment on above:Performed By: #### CMP, 95603-2, CBCA, 77923-9, 28862-2 ####[facility] ([id number])[address] [place] [address] 44789Zumxpdgq mean volume (Bld) [Entitic vol]8.2 fLNormal7-12 ProMedicOrange Coast Memorial Medical CenterComment on above:Performed By: #### CMP, 84213-0, CBCA, 91896-9, 53852-0 ####[facility] ([id number])[address] [place] [address] 34030Hqhxshjep (Bld) [#/Vol]275 10*3/uLNormal 150-450ProBaptist Saint Anthony'S HospitalComment on above:Performed By: #### CMP, 63456- 4, CBCA, 95610-6, 34516-6 ####[facility] ([id number])[address] [place] [address] 80259OFH COUNT3.51 X10E12/LLow3.80-5.20 [facility] SystemComment on above:Performed By: #### RUBEN, 86225-3, CBCA, 65338-2, 82342-6 ####[facility] ([id number])[address] [place] [address] 69650OUF (Bld) [#/Vol]7.8 10*3/uLNormal4.0-11.0 [facility] SystemComment on above:Performed By: #### RUBEN, 96590-9, CBCA, 22167-0, 45032-0 ####[facility] ([id number])[address] [place] [address] 83848RMBQWZAGEOSUC METABOLIC PANELon 11-09-2024 Albumin [Mass/Vol]3.5 g/dLNormal3.2-5.3PMercy HealthComment on above:Performed By: #### RUBEN, 58864-8, CBCA, 84634-2, 41200-1 ####[facility] ([id number])[address] [place] [address] 36861FXG [Catalytic activity/Vol]89 U/BIsoubw30-589DixSadrfsBlanchard Valley Health System Comment on above:Performed By: #### RUBEN, 59509-8, CBCA, 81255-3, 81037-5 ####[facility] ([id number])[address] [place] [address] 10147MXF [Catalytic activity/Vol]16 U/LNormal0-31PMercy HealthComment on above:Performed By: #### RUBEN, 60722-3, CBCA, 82350-5, 42604-0 ####[facility] ([id number])[address] [place] [address] 99395Cutic gap [Moles/Vol]10 mmol/LNormal5-15ProBaptist Saint Anthony'S HospitalComment on above:Performed By: #### RUBEN, 98185-6, CBCA, 21535-4, 45062-5 ####[facility] ([id number])[address] [place] [address] 40358GMQ [Catalytic activity/Vol]19 U/LNormal0-41ProBaptist Saint Anthony'S HospitalComment on above:Performed By: #### RUBEN, 42233-2, CBCA, , 81593-7 ####[facility] ([id number])[address] [place] [address] 98597Jypywufdl [Mass/Vol]0.7 mg/dLNormal0.3-1.2PMercy HealthComment on above:Performed By: #### RUBEN, 19319-7, CBCA, , 85901-3 ####[facility] ([id number])[address] [place] [address] 27810Wnonoso [Mass/Vol]9.3 mg/dLNormal8.5-10.5PMercy HealthComment on above:Performed By: #### RUBEN, 37945-2, CBCA, , 41067- 7 ####[facility] ([id number])[address] [place] [address], [place] [address]Rwfoptdy [Moles/Vol]99 mmol/VSxxhzl67-540OguQbslilBaptist Saint Anthony'S HospitalComment on above:Performed By: #### RUBEN, 55567-3, CBCA, , 41741- 7 ####[facility] ([id number])[address] [place] [address], [place] [address]XD5 [Moles/Vol]28 mmol/TIzltnv21-46FhaAhppglMercy HealthComment on above:Performed By: #### RUBEN, 92194-9, CBCA, , 72757-2 ####[facility] ([id number])[address] [place] [address] 78513Quslvcixvo [Mass/Vol]1.32 mg/dLHigh0.40-1.00ProBaptist Saint Anthony'S HospitalComment on above:Result Comment: METHOD TRACEABLE TO IDMS STANDARDPerformed By: #### RUBEN, 13556-0, CARMEN, 52606-7, 76259-1 ####[facility] ([id number])[address] [place] [address] 78188WRN/1.73 sq M.predicted among non-blacks MDRD (S/P/Bld) [Vol rate/Area]41 mL/min/{1.73_m2}Low>59ProBaptist Saint Anthony'S HospitalComment on above:Result Comment: Reported eGFR is based on theCKD-EPI 2020 equation that doesnot use a race coefficient.Performed By: #### RUBEN, 62912-2, CARMEN, , 25538-5 ####[facility] ([id number])[address] [place] [address] 67447Omstpjv [Mass/Vol]206 mg/vUDfuo67-59PvmXessosBaptist Saint Anthony'S HospitalComment on above:Performed By: #### RUBEN, 12814-3, CARMEN, 66471-4, 73538-4 ####[facility] ([id number])[address] [place] [address] 82593Omyneyonb [Moles/Vol]3.9 mmol/LNormal3.5-5.0ProBaptist [facility]'S Hospital Comment on above:Performed By: #### RUBEN, 58755-0, CBCA, 77040-3, 52577-5 ####[facility] ([id number])[address] [place] [address] 67896Kuvfjtw [Mass/Vol]7.3 g/dLNormal6.0-8.0ProBaptist Saint Anthony'S HospitalComment on above:Performed By: #### RUBEN, 91264-6, CBCA, 01399-3, 30623-2 ####[facility] ([id number])[address] [place] [address] 09764Cqgjcu [Moles/Vol]137 mmol/FKjvlbv033-763CcnRwcovk [facility]remont HospitalComment on above:Performed By: #### CMP, 85132-1, CBCA, 66132-2, 89094- 7 ####[facility] ([id number])[address] [place] [address] 33870Xfps nitrogen [Mass/Vol]17 mg/dLNormal5-27ProBaptist Saint Anthony'S HospitalComment on above:Performed By: #### CMP, 89676-6, CBCA, , 79900-1 ####[facility] ([id number])[address] [place] [address] 28889GQF High sensitivity method [Mass/Vol]on 75-68-7483QY CRP 3.030 mg/dLHigh0.000-0.744PMercy HealthComment on above:Result Comment: Hs-CRP FOR CARDIAC RISK ASSESSMENT: By this method, 75% of hs-CRP values inhealthy adults will be <0.37mg/dL. Prospectivestudies have shown that hs-CRP values in theupper quartile of an apparently healthypopulation are associated with an approximate3-fold increase in risk of developing cardio- vascular disease. This increase in risk iseven more pronounced in the presence of anelevated Cholesterol/HDL-C ratio (>5.5).Hs-CRP is a nonspecific marker of inflammationand can be elevated in other conditions.Performed By: #### 32997-5 ####[facility] ([id number])[address] [facility], [address], [place] [address]BT CRP2.859 mg/dLHigh0.000-0.744PMercy HealthComment on above:Result Comment: Hs-CRP FOR CARDIAC RISK ASSESSMENT: By this method, 75% of hs-CRP values inhealthy adults will be <0.37mg/dL. Prospectivestudies have shown that hs-CRP values in theupper quartile of an apparently healthypopulation are associated with an approximate3-fold increase in risk of developing cardio- vascular disease. This increase in risk iseven more pronounced in the presence of anelevated Cholesterol/HDL-C ratio (>5.5).Hs-CRP is a nonspecific marker of inflammationand can be elevated in other conditions.Performed By: #### 80706-6 ####[facility] ([id number])[address] [place] [address] 17959#### 43102-4 ####[facility] ([id number])[address] [place] [address] 88623Lbxnpoe Glucometer (BldC) [Mass/Vol]on 46-98-9774Uyhzuib [Mass/Vol]252 mg/tDJiou14-20XdxQfdasiBaptist Saint Anthony'S HospitalGlucose [Mass/Vol]118 mg/qYUitm55-31XhdDltqcqBaptist Saint Anthony'S HospitalGlucose [Mass/Vol]253 mg/bURklq48-01RkqZvjkfrBaptist Saint Anthony'S HospitalLactate (P obed) [Moles/Vol]on 75-14-9360LERMBQX W/REFLEX1.2 mmol/LNormal0.4-2.0ProBaptist Saint Anthony'S HospitalComment on above:Result Comment: Result did not trigger repeat Lactate,re-order if needed.Performed By: #### 02586-4 ####[facility] ([id number])[address] [place] [address] 56844 MAGNESIUMon 10-22-0683Fwweijrar [Mass/Vol]2.6 mg/dLNormal1.8-2.6ProBaptist Saint Anthony'S HospitalComment on above:Performed By: #### 16239-8 ####[facility] ([id number])[address] [place] [address] 50127 Magnesium [Mass/Vol]1.6 mg/dLLow1.8-2.6ProBaptist Saint Anthony'S HospitalComment on above:Performed By: #### CMP, 93010-1, CBCA, 73752-3, 65804-6 ####[facility] ([id number])[address] [place] [address] 77388Tfilkkopygv peptide B [Mass/Vol]on 51-68-8001Hfzfecnnyll peptide B (Bld) [Mass/Vol]74 pg/mLNormal<100.0ProBaptist Saint Anthony'S HospitalComment on above: Performed By: #### CMP, 08447-0, CBCA, 97309-7, 89672-0 ####[facility] ([id number])[address] [place] [address] 81688FCXU PATHOGENS/EPFL-IqJ-3ce 54-76-2438Wgxtuxkyats pathogens DNA and RNA panel SIRI+non-probe (Nph)NormalProBaptist Saint Anthony'S HospitalComment on above:Performed By: #### 96765-7 ####[facility] ([id number])[address] [place] [address] 89900KKQZGBFORT HAMILTON HOSPITAL LAB ([id number])[address] [place] [address], [address] [place] [address] 15057SPCU/FLU A+B/RSV by NAAT/Molecularon 22-01-0183LASY/FLU A+B/RSV by NAAT/MolecularNormalProBaptist Saint Anthony'S HospitalComment on above:Performed By: #### COVFLR ####[facility] ([id number])[address] [place] [address] 51465Bddtqqaj I.cardiac High sensitivity method [Mass/Vol]on HOUR TROP I, HIGH JXAOXLOKXNK89 ng/LHigh<16ProBaptist Saint Anthony'S HospitalComment on above:Result Comment: Elevations of hs-Troponin may be due to causesother than myocardial ischemia.Recommend serial hs-Troponin testing be performed.For the initial evaluation and management of chestpain patients, refer to the algorithms linked below.Emergency Patient:[email or web address]?d =[email or web address]=1cc5a&w=82745&uh=acaeaInpatient:[email or web address]? [email or web address]=[email or web address]&c=53685&uh=acaeaPerformed By: #### 24911-0 ####[facility] ([id number])[address] [place] [address] 05864#### 17937-1 ####[facility] ([id number])[address] [facility], [id number] [address]UNQLRSYR I, HIGH IZKJMXFBSGX25 ng/LHigh<16ProBaptist Saint Anthony'S HospitalComment on above:Result Comment: Elevations of hs-Troponin may be due to causesother than myocardial ischemia.Recommend serial hs-Troponin testing be performed.For the initial evaluation and management of chestpain pa tients, refer to the algorithms linked below.Emergency Patient:[email or web address]?d =[email or web address]&dh=1cc5a&y=23046&uh=acaeaInpatient:[email or web address]? j=[email or web address]=f72e7&f=41183&uh=acaeaPerformed By: #### CMP, 88744-8, CBCA, 02175- 9, 13987-3 ####[facility] ([id number])[address] [place] [address] 68879AWTYGRQRTNqq 18-88-9032Lswvzmyve Ql (U)Negative NormalNEGProBaptist Saint Anthony'S HospitalComment on above:Performed By: #### UA ####[facility] ([id number])[address] [place] [address] 46268PQZCS/HGBNegativeNormalNEGProPomerene Hospitalca Mercy Medical CenterComment on above:Performed By: #### UA ####[facility] ([id number])[address] [place] [address] 23756Gmidt (U)YELLOWNormalYELLOWProPomerene Hospitalca Mercy Medical CenterComment on above:Performed By: #### UA ####[facility] ([id number])[address] [place] [address], [place] [address]Cjqbqxy Ql (U)NegativeNormalNEGProBaptist Saint Anthony'S HospitalComment on above:Performed By: #### UA ####[facility] ([id number])[address] [place] [address], [place] [address]Fsghvbf Ql (U)NegativeNormalNEGProBaptist Saint Anthony'S Hospital Comment on above:Performed By: #### UA ####[facility] ([id number])[address] [place] [address], [place] [address]Qtwfogehb esterase Test strip Ql (U)SMALLAbnormalNEGProBaptist Saint Anthony'S HospitalComment on above:Performed By: #### UA ####[facility] ([id number])[address] [place] [address] [place] [address]Tuvmtsq Ql (U)PositiveAbnormalNEG ProMedica [facility]cy Medical CenterComment on above:Performed By: #### UA ####[facility] ([id number])[address] [place] [address], [place] [address]oN (U)6.0 [pH]Normal5.0-8.5PMercy HealthComment on above: Performed By: #### UA ####[facility] ([id number])[address] [place] [address], [place] [address]Hsfbcfu Ql (U)TraceAbnormalNEGProBaptist Saint Anthony'S HospitalComment on above:Performed By: #### UA ####[facility] ([id number])[address] [place] [address], [place] [address] R.B.CELLS1 /hpfNormal0-5ProMedMenlo Park VA HospitalComment on above:Performed By: #### UA ####[facility] ([id number])[address] [place] [address] 55555Vgozulqb gravity (U) [Rel density]1.389Zvviyt1.003-1.035 ProMedica [facility]cy Medical CenterComment on above:Performed By: #### UA ####[facility] ([id number])[address] [place] [address] 64741SBRJYWZO EPITHELIUM3 /hpfNormal0-5PMercy HealthComment on above:Performed By: #### UA ####[facility] ([id number])[address] [place] [address] 29507JPGQZNGIAVQRHBQkphdqFFRWNAxtCvzeea [facility]ont HospitalComment on above:Performed By: #### UA ####[facility] ([id number])[address] [place] [address] 69536 Urobilinogen Qn (U)0.2 {Artie'U}/dLNormal<1.1PMercy HealthComment on above:Performed By: #### UA ####[facility] ([id number])[address] [place] [address] 81168H.B.CELLS2 /hpfNormal0-5PMercy HealthComment on above:Performed By: #### UA ####[facility] ([id number])[address] [place] [address] 63771XUXVL CULTUREon 18-91-3938Ajodbcpc identified Cx Nom (U)SusceptibleProBaptist Saint Anthony'S HospitalComment on above:Performed By: #### 630-4 ####[facility] ([id number])[address] [place] [address], [address], [place] [address]AK CHEST 1 VWon 17-04-2325KO CHEST 1 VWNormalProMedica Mercy Medical CenterCB AND AUTO DIFFon 12-53-2929OMFPKOJP BASOPHIL0.0 X10E9/LNormal0.0-0.2[facility] Comment on above:Performed By: #### 03134-2, CBCA, CMP ####[facility] ([id number])[address] [place] [address] 15177ZUJYGACD NEUTROPHIL3.1 X10E9/LNormal1.5-6.6ProBaptist Saint Anthony'S HospitalComment on above: Performed By: #### 27905-1, CBCA, CMP ####[facility] ([id number])[address] [place] [address] 33006Twvdhyfio/100 WBC (Bld)0.8 %NormalProBaptist Saint Anthony'S HospitalComment on above:Performed By: #### 54844-4, CBCA, CMP ####[facility] ([id number])[address] [place] [address] 43645Bmpnldoozlz (Bld) [#/Vol]0.4 10*3/uLNormal 0.0-0.4ProBaptist Saint Anthony'S HospitalComment on above:Performed By: #### 96578-1, CBCA, CMP ####[facility] ([id number])[address] [place] [address] 29650Ctwzvxvcfbi/100 WBC (Bld)5.9 %NormalProBaptist Saint Anthony'S HospitalComment on above:Performed By: #### 26125-0, CBCA, CMP ####[facility] ([id number])[address] [place] [address] 65868Ssgmwwientz distribution width (RBC) [Ratio]15.8 %High11.5-15.0Bl[facility] Valley Health SystemComment on above:Performed By: #### 16801-8, CBCA, CMP ####[facility] ([id number])[address] [place] [address] 87516Dizajrmuwn (Bld) [Volume fraction]30.3 %Yqf56-46RghOrmibzBaptist Saint Anthony'S HospitalComment on above:Performed By: #### 72605-8, CBCA, CMP ####[facility] ([id number])[address] [place] [address] 48416Uwfzwsgtvh (Bld) [Mass/Vol]10.2 g/dLLow11.7-15.5PMercy HealthComfresenius medical care [facility] on above:Performed By: #### 95345-4, CBCA, CMP ####[facility] ([id number])[address] [place] [address] 14121Hyfgxjrefle (Bld) [#/Vol]2.1 10*3/uLNormal1.0-3.5PMercy HealthComfresenius [facility] on above:Performed By: #### 07127-5, CBCA, CMP ####[facility] ([id number])[address] [place] [address] 78631Sfnjryjyhmm/100 WBC (Bld)33.5 %NormalProBaptist Saint Anthony'S HospitalComfresenius [facility] on above:Performed By: #### 61784-7, CBCA, CMP ####[facility] ([id number])[address] [place] [address] 81603GYU (RBC) [Entitic mass]28.4 cwSjouad66-80FxiJufyhmBlanchard Valley Health SystemComfresenius [facility] on above:Performed By: #### 09177-9, CBCA, CMP ####[facility] ([id number])[address] [place] [address] 85334EKDU (RBC) [Mass/Vol]33.8 g/wOOgylpi90-07WcvWdgrppBaptist Saint Anthony'S HospitalComfresenius [facility] on above: Performed By: #### 42264-8, CBCA, CMP ####[facility] ([id number])[address] [place] [address] 06281VMC (RBC) [Entitic vol]84 iIZomznp22-144NzeYvlble [facility] HospitalComment on above: Performed By: #### 28853-4, CBCA, CMP ####[facility] ([id number])[address] [place] [address] 05153Qtwocolfw (Bld) [#/Vol]0.6 10*3/uLNormal0-0.9Bl[facility] Health SystemComment on above: Performed By: #### 96744-8, CBCA, CMP ####[facility] ([id number])[address] [place] [address] 01196Dojgkmdxh/100 WBC (Bld)10.1 %NormalProBaptist Saint Anthony'S HospitalComfresenius [facility] on above:Performed By: #### 37146-0, CBCA, CMP ####[facility] ([id number])[address] [place] [address] 58073Lfsrbnrfkuk/100 WBC (Bld)49.7 %Normal ProMKaiser Permanente Medical CenterComment on above:Performed By: #### 93614-4, CBCA, CMP ####[facility] ([id number])[address] [place] [address] 98116Rsatnjcq mean volume (Bld) [Entitic vol]8.8 fLNormal7-12 [facility] SystemComment on above:Performed By: #### 08005-6, CBCA, CMP ####[facility] ([id number])[address] [place] [address] 11061Uguumkyei (Bld) [#/Vol]224 10*3/mDSminfa921-151KwdWbmfcp [facility]ont HospitalComment on above:Performed By: #### 21910-4, CBCA, CMP ####[facility] ([id number])[address] [place] [address] 87023SPV COUNT3.60 X10E12/LLow3.80-5.20ProBaptist Saint Anthony'S HospitalComment on above:Performed By: #### 81896-4, CBCA, CMP ####[facility] ([id number])[address] [place] [address] 12019WGT (Bld) [#/Vol]6.2 10*3/uLNormal4.0-11.0Bl[facility] Health SystemComment on above:Performed By: #### 46374-2, CBCA, CMP ####[facility] ([id number])[address] [place] [address] 20540ZMGVISAWRTEJD METABOLIC PANELon 59-15-6081Hopywyr [Mass/Vol]3.6 g/dLNormal3.2-5.3PMercy HealthComment on above:Performed By: #### 14709-0, CBCA, CMP ####[facility] ([id number])[address] [place] [address] 86995GXC [Catalytic activity/Vol]85 U/KBtwhdq19-122XwuGsljfbBaptist Saint Anthony'S HospitalComment on above:Performed By: #### 43588-8, CBCA, CMP ####[facility] ([id number])[address] [place] [address] 39634PRO [Catalytic activity/Vol]15 U/LNormal0-31PMercy HealthComment on above:Performed By: #### 86473-4, CBCA, CMP ####[facility] ([id number])[address] [place] [address] 87946Gcuyl gap [Moles/Vol]10 mmol/LNormal5-15ProBaptist Saint Anthony'S HospitalComment on above:Performed By: #### 95178-4, CBCA, CMP ####[facility] ([id number])[address] [place] [address] 25780SNZ [Catalytic activity/Vol]19 U/LNormal0-41ProB[facility]ist [facility] Comment on above:Performed By: #### 35122-3, CBCA, CMP ####[facility] ([id number])[address] [place] [address], [place] [address] Bilirubin [Mass/Vol]0.2 mg/dLLow0.3-1.2PMercy HealthComment on above:Performed By: #### 52747-6, CBCA, CMP ####[facility] ([id number])[address] [place] [address], [place] [address]Sbeqmwm [Mass/Vol]8.8 mg/dLNormal8.5-10.5PMercy HealthComment on above: Performed By: #### 99969-1, CBCA, CMP ####[facility] ([id number])[address] [place] [address], [place] [address]Vyedxanm [Moles/Vol]103 mmol/ISoynzb13-841HwxEsrdvqBaptist Saint Anthony'S HospitalComment on above: Performed By: #### 54214-3, CBCDanielle, CMP ####[facility] ([id number])[address] [place] [address], [place] [address]MK2 [Moles/Vol]23 mmol/XUxvtvn41-53SliOiavecMercy HealthComment on above:Performed By: #### 97068-8, CBCA, CMP ####[facility] ([id number])[address] [place] [address], [place] [address]Xagnzhuqwb [Mass/Vol]1.55 mg/dLHigh0.40-1.00 ProMKaiser Permanente Medical CenterComment on above:Result Comment: METHOD TRACEABLE TO IDMS STANDARDPerformed By: #### 69650-2, CBCA, CMP ####[facility] ([id number])[address] [place] [address], [place] [address]ROB/1.73 sq M.predicted among non-blacks MDRD (S/P/Bld) [Vol rate/Area]34 mL/min/{1.73_m2} Low>59ProBaptist Saint Anthony'S HospitalComment on above:Result Comment: Reported eGFR is based on theCKD-EPI 2020 equation that doesnot use a race coefficient. Performed By: #### 09810-6CARMEN, CMP ####[facility] ([id number])[address] [place] [address] 42928Dfpcqsz [Mass/Vol]234 mg/lQIzae41-99UmsQaxagkBaptist Saint Anthony'S HospitalComment on above:Performed By: #### 20942-6CARMEN Jimenez, CMP ####[facility] ([id number])[address] [place] [address] 66252Pyykbjbxg [Moles/Vol]4.2 mmol/LNormal 3.5-5.0ProBaptist Saint Anthony'S HospitalComment on above:Performed By: #### 24264-5, CBCA, CMP ####[facility] ([id number])[address] [place] [address] 57933Qoilvoe [Mass/Vol]6.7 g/dLNormal6.0-8.0ProBaptist Saint Anthony'S HospitalComment on above:Performed By: #### 05392-7, CBCA, CMP ####[facility] ([id number])[address] [place] [address] 31758Dponij [Moles/Vol]136 mmol/LIoftef431-829MkrPldpok [facility] HospitalComment on above:Performed By: #### 83426-4, CBCA, CMP ####[facility] ([id number])[address] [place] [address] 85944Istt nitrogen [Mass/Vol]33 mg/dLHigh5-27ProBaptist Saint Anthony'S HospitalComment on above:Performed By: #### 35829-8, CBCA, CMP ####[facility] ([id number])[address] [place] [address] 36257Bpxxdwz Glucometer (BldC) [Mass/Vol]on 55-15-6288Jcixump [Mass/Vol]169 mg/fHVctz38-13WrpYhayujBaptist Saint Anthony'S Hospital MAGNESIUMon 15-18-6775Kvslboarn [Mass/Vol]1.9 mg/dLNormal1.8-2.6ProBaptist Saint Anthony'S HospitalComment on above:Performed By: #### 31950-8, CBCA, CMP ####[facility] ([id number])[address] [place] [address], [place] [address]KNI AND AUTO DIFFon 86-67-0823VJBMTZYK BASOPHIL0.0 X10E9/L Normal0.0-0.2ProMedMenlo Park VA HospitalComment on above:Performed By: #### CMP, CBCA, ####[facility] ([id number])[address] [place] [address], [place] [address]QBMHLSFK NEUTROPHIL3.7 X10E9/LNormal1.5-6.6ProBaptist Saint Anthony'S HospitalComment on above:Performed By: #### CMP, CBCA, ####[facility] ([id number])[address] [place] [address] 76643Aggqphlbu/100 WBC (Bld)0.7 %NormalBlanchard Valley Health SystemComment on above:Performed By: #### CMP, CBCA, ####[facility] ([id number])[address] [place] [address] 06675Tggndhgywct (Bld) [#/Vol]0.3 10*3/uLNormal0.0-0.4[facility] Comment on above:Performed By: #### CMP, CBCA, ####[facility] ([id number])[address] [place] [address] 97618 Eosinophils/100 WBC (Bld)4.3 %NormalBlanchard Valley Health SystemComment on above: Performed By: #### CMP, CBCA, ####[facility] ([id number])[address] [place] [address] 85160Epeqzpiigfm distribution width (RBC) [Ratio]15.9 %High11.5-15.0[facility] Comment on above:Performed By: #### RUBEN, CBCA, ####[facility] ([id number])[address] [place] [address] 90521 Hematocrit (Bld) [Volume fraction]31.1 %Gkx48-04AepMarrijBlanchard Valley Health System Comment on above:Performed By: #### CMP, CBCA, ####[facility] ([id number])[address] [place] [address] 04538 Hemoglobin (Bld) [Mass/Vol]10.4 g/dLLow11.7-15.5PMercy Health Comment on above:Performed By: #### RUBEN, CBCA, ####[facility] ([id number])[address] [place] [address] 19773 Lymphocytes (Bld) [#/Vol]2.0 10*3/uLNormal1.0-3.5PMercy Health Comment on above:Performed By: #### CMP, CBCA, ####[facility] ([id number])[address] [place] [address] 27087 Lymphocytes/100 WBC (Bld)29.4 %NormalProBaptist Saint Anthony'S HospitalComment on above: Performed By: #### CMP, CBCA, ####[facility] ([id number])[address] [place] [address] 19832IRN (RBC) [Entitic mass]28.2 zeWcbapt53-28BirEchstdBlanchard Valley Health SystemComment on above: Performed By: #### CMP, CBCA, ####[facility] ([id number])[address] [place] [address] 45482OTIR (RBC) [Mass/Vol]33.5 g/cBWchlxe07-37GeeZwnxocBlanchard Valley Health SystemComment on above: Performed By: #### RUBEN, CBCA, ####[facility] ([id number])[address] [place] [address] 18631DCR (RBC) [Entitic vol]84 gIPpxhmv49-225LdjSomzjcBlanchard Valley Health SystemComment on above: Performed By: #### RUBEN, CBCDanielle, ####[facility] ([id number])[address] [place] [address] 31809Fspctrmyt (Bld) [#/Vol]0.8 10*3/uLNormal0-0.9[facility] Health SystemComment on above: Performed By: #### RUBEN, CBCDanielle, ####[facility] ([id number])[address] [place] [address] 16117Jhxbyqaux/100 WBC (Bld)12.0 %NormalBlanchard Valley Health SystemComment on above:Performed By: #### RUBEN, CBCA, ####[facility] ([id number])[address] [place] [address] 20293Wsrzixyinnw/100 WBC (Bld)53.6 %Normal [facility] Health SystemComment on above:Performed By: #### CMP, CBCA, ####[facility] ([id number])[address] [place] [address] 20061Trwyskgk mean volume (Bld) [Entitic vol]9.1 fLNormal7-12 [facility] SystemComment on above:Performed By: #### CMP, CBCA, ####[facility] ([id number])[address] [place] [address] 42279Qackqstpo (Bld) [#/Vol]244 10*3/jBEbguqh611-618LozMrqolf [facility] HospitalComment on above:Performed By: #### CARMEN MIRANDA, ####[facility] ([id number])[address] [place] [address] 79335YHC COUNT3.69 X10E12/LLow3.80-5.20ProBaptist Saint Anthony'S HospitalComment on above:Performed By: #### CARMEN MIRANDA, ####[facility] ([id number])[address] [place] [address] 97457YXM (Bld) [#/Vol]6.9 10*3/uLNormal4.0-11.0ProBaptist Saint Anthony'S HospitalComment on above:Performed By: #### CARMEN MIRANDA, ####[facility] ([id number])[address] [place] [address] 16166VIIDYDDHEOMWM METABOLIC PANELon 36-81-3438Pkawylw [Mass/Vol]3.6 g/dLNormal3.2-5.3PMercy HealthComment on above:Performed By: #### CARMEN MIRANDA, ####[facility] ([id number])[address] [place] [address] 32628WMJ [Catalytic activity/Vol]87 U/UEuwbhh84-379ZkrPkmultBlanchard Valley Health SystemComment on above:Performed By: #### CARMEN MIRANDA, ####[facility] ([id number])[address] [place] [address] 03369BUS [Catalytic activity/Vol]17 U/LNormal0-31PMercy HealthComment on above:Performed By: #### CARMEN MIRANDA, ####[facility] ([id number])[address] [place] [address] 04288Fcauk gap [Moles/Vol]9 mmol/LNormal5-15[facility] Health SystemComment on above:Performed By: #### CARMEN MIRANDA, ####[facility] ([id number])[address] [place] [address], [place] [address]VVW [Catalytic activity/Vol]21 U/LNormal0-41[facility] Comment on above:Performed By: #### CARMEN MIRANDA, ####[facility] ([id number])[address] [place] [address], [place] [address] Bilirubin [Mass/Vol]0.3 mg/dLNormal0.3-1.2PMercy HealthComment on above:Performed By: #### CARMEN MIRANDA, ####[facility] ([id number])[address] [place] [address] 74728Turbrcb [Mass/Vol]8.7 mg/dLNormal8.5-10.5PMercy HealthComment on above: Performed By: #### CARMEN MIRANDA, ####[facility] ([id number])[address] [place] [address], [place] [address]Dlnlwwbo [Moles/Vol]100 mmol/VTdchfo97-591UybKjguhdBlanchard Valley Health SystemComment on above: Performed By: #### CARMEN MIRANDA, ####[facility] ([id number])[address] [place] [address], [place] [address]DT4 [Moles/Vol]25 mmol/JMsijuv21-69PyaBziulxMercy HealthComment on above:Performed By: #### CARMEN MIRANDA, ####[facility] ([id number])[address] [place] [address], [place] [address]Bjxkhwfzin [Mass/Vol]1.75 mg/dLHigh0.40-1.00 ProMKaiser Permanente Medical CenterComment on above:Result Comment: METHOD TRACEABLE TO IDMS STANDARDPerformed By: #### CARMEN MIRANDA, ####[facility] ([id number])[address] [place] [address] 51194KCC/1.73 sq M.predicted among non-blacks MDRD (S/P/Bld) [Vol rate/Area]29 mL/min/{1.73_m2} Low>59ProBaptist Saint Anthony'S HospitalComment on above:Result Comment: Reported eGFR is based on theCKD-EPI 2020 equation that doesnot use a race coefficient. Performed By: #### CARMEN MIRANDA, ####[facility] ([id number])[address] [place] [address] 84161Tmbybor [Mass/Vol]266 mg/gFOnfi19-62TszKnkyfqBaptist Saint Anthony'S HospitalComment on above:Performed By: #### CARMEN MIRANDA, ####[facility] ([id number])[address] [place] [address] 78049Vszwhkckj [Moles/Vol]4.1 mmol/LNormal 3.5-5.0ProBaptist Saint Anthony'S HospitalComment on above:Performed By: #### CARMEN MIRANDA, ####[facility] ([id number])[address] [place] [address] 59264Iotnjqh [Mass/Vol]6.9 g/dLNormal6.0-8.0ProBaptist Saint [facility]'S HospitalComment on above:Performed By: #### CARMEN MIRANDA, ####[facility] ([id number])[address] [place] [address] 66883Zeuron [Moles/Vol]134 mmol/CRkcutk003-476SpuMvfvjs [facility] HospitalComment on above:Performed By: #### CARMEN MIRANDA, ####[facility] ([id number])[address] [place] [address] [place] [address]Alni nitrogen [Mass/Vol]37 mg/dLHigh5-27[facility] SystemComment on above:Performed By: #### CARMEN MIRANDA, 78385-3 ####[facility] ([id number])[address] [place] [address] 63783Mldtssi Glucometer (BldC) [Mass/Vol]on 84-81-1845Ncphzyg [Mass/Vol]206 mg/yDPjir41-63BgvThzhxiBlanchard Valley Health SystemGlucose [Mass/Vol]179 mg/jGJyif30-58VvwAwkyusBaptist Saint Anthony'S HospitalGlucose [Mass/Vol]339 mg/cXUsjf15-63UrgCksdeiBlanchard Valley Health SystemMAGNESIUMon 69-80-7887Uizlsmtkc [Mass/Vol]1.9 mg/dLNormal1.8-2.6ProBaptist Saint Anthony'S HospitalComment on above: Performed By: #### CARMEN MIRANDA, ####[facility] ([id number])[address] [place] [address] 16331MVI AND AUTO DIFF on 04-80-9719HXCIMKPZ BASOPHIL0.0 X10E9/LNormal0.0-0.2PMercy Health Comment on above:Performed By: #### RUBEN MORALES, ####[facility] ([id number])[address] [place] [address] 01829FMHXVNEB NEUTROPHIL4.9 X10E9/LNormal1.5-6.6[facility] Health SystemComment on above: Performed By: #### RUBEN MORALES, 02788-5 ####[facility] ([id number])[address] [place] [address] 22753Cirteypij/100 WBC (Bld)0.4 %NormalProBaptist Saint Anthony'S HospitalComment on above:Performed By: #### RUBEN MORALES, ####[facility] ([id number])[address] [place] [address] 20141Gmpicqcyfnd (Bld) [#/Vol]0.1 10*3/uLNormal 0.0-0.4[facility] Health SystemComment on above:Performed By: #### RUBEN MORALES, ####[facility] ([id number])[address] [place] [address] 55570Rmhwrqokidj/100 WBC (Bld)1.1 %NormalProBaptist Saint Anthony'S HospitalComment on above:Performed By: #### RUBEN MORALES, ####[facility] ([id number])[address] [place] [address] 31393Ubamctviihv distribution width (RBC) [Ratio]15.5 %High11.5-15.0Bl[facility] Health SystemComment on above:Performed By: #### RUBEN MORALES, ####[facility] ([id number])[address] [place] [address] 15788Zsvzybnyzu (Bld) [Volume fraction]33.5 %Qib75-04OfwQccpbxBlanchard Valley Health SystemComment on above:Performed By: #### RUBEN MORALES, ####[facility] ([id number])[address] [place] [address] 86329Zataopjmxd (Bld) [Mass/Vol]11.1 g/dLLow11.7-15.5PMercy HealthComment on above:Performed By: #### RUBEN MORALES, ####[facility] ([id number])[address] [place] [address] 31122Caiejezagpy (Bld) [#/Vol]2.3 10*3/uLNormal1.0-3.5PMercy HealthComment on above:Performed By: #### RUBEN MORALES, ####[facility] ([id number])[address] [place] [address] 93596Vhtvzxkalbp/100 WBC (Bld)27.9 %NormalProBaptist Saint Anthony'S HospitalComment on above:Performed By: #### CBCA, CMP, ####[facility] ([id number])[address] [place] [address] 29250XJA (RBC) [Entitic mass]27.9 edIhdeer25-73KcsAhqiwyBaptist Saint Anthony'S HospitalComment on above:Performed By: #### CBCA, CMP, ####[facility] ([id number])[address] [place] [address] 16536WKBA (RBC) [Mass/Vol]33.1 g/mCIxpypz93-88YkqVttokcBaptist Saint Anthony'S HospitalComment on above: Performed By: #### CBCA, CMP, ####[facility] ([id number])[address] [place] [address] 99581NLC (RBC) [Entitic vol]84 fOIyanvk30-469CduJuldlf [facility] HospitalComment on above: Performed By: #### CBCA, CMP, ####[facility] ([id number])[address] [place] [address] 20628Auanntetw (Bld) [#/Vol]1.0 10*3/uLHigh0-0.9[facility] SystemComment on above:Performed By: #### CBCA, CMP, ####[facility] ([id number])[address] [place] [address] 14893Ujpxsvqiw/100 WBC (Bld)12.0 %Normal ProMKaiser Permanente Medical CenterComment on above:Performed By: #### CBCA, CMP, ####[facility] ([id number])[address] [place] [address] 54019Ycywpgpxjqp/100 WBC (Bld)58.6 %NormalProBaptist Saint Anthony'S HospitalComment on above:Performed By: #### RUBEN MORALES, ####[facility] ([id number])[address] [place] [address] 10821Qntflwsj mean volume (Bld) [Entitic vol]9.0 fLNormal7-12PMercy HealthComment on above:Performed By: #### RUBEN MORALES, ####[facility] ([id number])[address] [place] [address] 87740Vwzykqypc (Bld) [#/Vol]241 10*3/dQGubowu492-805AxeAxmwhqBlanchard Valley Health System Comment on above:Performed By: #### RUBEN MORALES, ####[facility] ([id number])[address] [place] [address] 98434ESG COUNT3.97 X10E12/LNormal3.80-5.20[facility] Health SystemComment on above: Performed By: #### RUBEN MORALES, ####[facility] ([id number])[address] [place] [address] 77329IUU (Bld) [#/Vol] 8.3 10*3/uLNormal4.0-11.0Bl[facility] Health SystemComment on above:Performed By: #### CARMEN CMP, ####[facility] ([id number])[address] [place] [address] 10386PAMGBQJYBZGFJ METABOLIC PANELon 23-50-7771Enplkhr [Mass/Vol]3.9 g/dLNormal3.2-5.3PMercy Health Comment on above:Performed By: #### CARMEN CMP, ####[facility] ([id number])[address] [place] [address] [place], [place] [address]VAK [Catalytic activity/Vol]95 U/FWukfac75-680WudQasrnlBaptist Saint Anthony'S HospitalComment on above:Performed By: #### RUBEN MORALES, ####[facility] ([id number])[address] [place] [address] [place], [place] [address]MTL [Catalytic activity/Vol]15 U/LNormal0-31ProMedMenlo Park VA HospitalComment on above: Performed By: #### RUBEN MORALES, ####[facility] ([id number])[address] [place] [address], [place] [address]Ykner gap [Moles/Vol]11 mmol/LNormal5-15ProBaptist Saint [facility]'S HospitalComment on above: Performed By: #### RUBEN MORALES, ####[facility] ([id number])[address] [place] [address], [place] [address]WIH [Catalytic activity/Vol]24 U/LNormal0-41ProBaptist Saint [facility]'S HospitalComment on above: Performed By: #### RUBEN MORALES, ####[facility] ([id number])[address] [place] [address], [place] [address]Cagbeurdz [Mass/Vol]0.5 mg/dLNormal0.3-1.2PMercy HealthComment on above: Performed By: #### RUBEN MORALES, ####[facility] ([id number])[address] [place] [address], [place] [address]Stovynp [Mass/Vol]9.5 mg/dLNormal8.5-10.5PMercy HealthComment on above: Performed By: #### RUBEN MORALES, ####[facility] ([id number])[address] [place] [address], [place] [address]Rsazodot [Moles/Vol]100 mmol/EOymxpn25-929BpuJoadrfBaptist Saint Anthony'S HospitalComment on above: Performed By: #### RUBEN MORALES, ####[facility] ([id number])[address] [place] [address], [place] [address]NB8 [Moles/Vol]23 mmol/ZBcsvra87-48GnxJlytng [facility] HospitalComment on above:Performed By: #### RUBEN MORALES, ####[facility] ([id number])[address] [place] [address] 65138Jxbxwazkbp [Mass/Vol]1.59 mg/dLHigh0.40-1.00 ProMKaiser Permanente Medical CenterComment on above:Result Comment: METHOD TRACEABLE TO IDMS STANDARDPerformed By: #### RUBEN MORALES, ####[facility] ([id number])[address] [place] [address] 80024OOJ/1.73 sq M.predicted among non-blacks MDRD (S/P/Bld) [Vol rate/Area]33 mL/min/{1.73_m2} Low>59ProBaptist Saint Anthony'S HospitalComment on above:Result Comment: Reported eGFR is based on theCKD-EPI 2020 equation that doesnot use a race coefficient. Performed By: #### RUBEN MORALES, ####[facility] ([id number])[address] [place] [address] 56680Hwcymjv [Mass/Vol]162 mg/tOFlkx95-64AqcMgcjkxBaptist Saint Anthony'S HospitalComment on above:Performed By: #### RUBEN MORALES, ####[facility] ([id number])[address] [place] [address] 73833Xmwojxiko [Moles/Vol]4.1 mmol/LNormal 3.5-5.0ProBaptist Saint Anthony'S HospitalComment on above:Performed By: #### RUBEN MORALES, ####[facility] ([id number])[address] [place] [address] 00362Picrhfn [Mass/Vol]7.7 g/dLNormal6.0-8.0[facility] Health SystemComment on above:Performed By: #### RUBEN MORALES, 47742-9 ####[facility] ([id number])[address] [place] [address] 63282Xtanfz [Moles/Vol]134 mmol/AJnxerq959-051KcbObglnz [facility] HospitalComment on above:Performed By: #### RUBEN MORALES, 00452-3 ####[facility] ([id number])[address] [place] [address] 93333Fpxl nitrogen [Mass/Vol]24 mg/dLNormal5-27ProBaptist Saint Anthony'S HospitalComment on above:Performed By: #### RUBEN MORALES, 50485-9 ####[facility] ([id number])[address] [place] [address] 98990Dawemat Glucometer (BldC) [Mass/Vol]on 28-33-6859Xkolhwh [Mass/Vol]216 mg/fVPrdi04-45GzjBxdfxuBlanchard Valley Health System MAGNESIUMon 28-62-4103Xrpewgwur [Mass/Vol]1.8 mg/dLNormal1.8-2.6[facility] Health SystemComment on above:Performed By: #### RUBEN MORALES, 49011-5 ####[facility] ([id number])[address] [place] [address] 65007XW CHEST 1 VWon [id number] CHEST 1 VWNormalProBaptist Saint Anthony'S HospitalaPTT Coag (PPP) [Time]on [id number] Coag (Bld) [Time]27 s Yxrwlb01-62UsnCfslfiBlanchard Valley Health SystemComment on above:Result Comment: NEW REFERENCE RANGEPerformed By: #### [id number] ####[facility] ([id number])[address] [place] [address] 03786KQH AND AUTO DIFF on [id number] BASOPHIL0.0 X10E9/LNormal0.0-0.2P[facility] Comment on above:Performed By: #### CMP, CBCA ####[facility] ([id number])[address] [place] [address] 25112EYJQQHXC NEUTROPHIL8.4 X10E9/LHigh1.5-6.6ProBaptist Saint Anthony'S HospitalComment on above: Performed By: #### CMP, CBCA ####[facility] ([id number])[address] [place] [address] 27868Eodikbzrp/100 WBC (Bld)0.4 %Normal ProMedicOrange Coast Memorial Medical CenterComment on above:Performed By: #### CMP, CBCA ####[facility] ([id number])[address] [place] [address] 00587Zehohkakizy (Bld) [#/Vol]0.0 10*3/uLNormal0.0-0.4Bl[facility] SystemComment on above:Performed By: #### CMP, CBCA ####[facility] ([id number])[address] [place] [address] 64874 Eosinophils/100 WBC (Bld)0.1 %NormalProBaptist Saint Anthony'S HospitalComment on above: Performed By: #### CMP, CBCA ####[facility] ([id number])[address] [place] [address] 40204Lukptyqphfv distribution width (RBC) [Ratio]15.7 %High11.5-15.0Bl[facility] Health SystemComment on above:Performed By: #### CMP, CBCA ####[facility] ([id number])[address] [place] [address] 26000Nnkytfsgjk (Bld) [Volume fraction]36.1 % Oxmqup92-15QnwXatipmBaptist Saint Anthony'S HospitalComment on above:Performed By: #### CMP, CBCA ####[facility] ([id number])[address] [place] [address] 68123Tiqmbsybqk (Bld) [Mass/Vol]11.8 g/aMUmghez59.7-15.5 [facility] Medical CenterComment on above:Performed By: #### CMP, CBCA ####[facility] ([id number])[address] [place] [address] 42134Rjretgmziyi (Bld) [#/Vol]0.8 10*3/uLLow1.0-3.5PChristus St[facility] Hospitalica Mercy Medical CenterComment on above:Performed By: #### CMP, CBCA ####[facility] ([id number])[address] [place] [address] 67626 Lymphocytes/100 WBC (Bld)8.2 %NormalBlanchard Valley Health SystemComment on above: Performed By: #### CMP, CBCA ####[facility] ([id number])[address] [place] [address] 96827EBW (RBC) [Entitic mass]27.6 pgNormal 27-34Bl[facility] Health SystemComment on above:Performed By: #### CMP, CBCA ####[facility] ([id number])[address] [place] [address] 91384XWQY (RBC) [Mass/Vol]32.8 g/hZNlqyya90-07GlfOftaqbBaptist Saint Anthony'S HospitalComment on above:Performed By: #### CMP, CBCA ####[facility] ([id number])[address] [place] [address] 35962MKA (RBC) [Entitic vol]84 dDFmrysy46-233DdjYhmjhhBlanchard Valley Health SystemComment on above: Performed By: #### CMP, CBCA ####[facility] ([id number])[address] [place] [address] 50343Ogijyxwgt (Bld) [#/Vol]0.7 10*3/uLNormal 0-0.9Bl[facility] SystemComment on above:Performed By: #### CMP, CBCA ####[facility] ([id number])[address] [place] [address] 04877Hdtvibuvs/100 WBC (Bld)7.4 %NormalBlanchard Valley Health SystemComment on above:Performed By: #### CMP, CBCA ####[facility] ([id number])[address] [place] [address] Neutrophils/100 WBC (Bld)83.9 %NormalBlanchard Valley Health SystemComment on above: Performed By: #### CMP, CBCA ####[facility] ([id number])[address] [place] [address] 14233Yoignhhu mean volume (Bld) [Entitic vol]8.4 fLNormal7-12ProMedica Mercy Medical CenterComment on above:Performed By: #### CMP, CBCA ####[facility] ([id number])[address] [place] [address] 75546Cipzciklk (Bld) [#/Vol]282 10*3/aHJwrboc992-397 [facility]cy Medical CenterComment on above:Performed By: #### CMP, CBCA ####[facility] ([id number])[address] [place] [address] 90958NUD COUNT4.29 X10E12/LNormal3.80-5.20ProBaptist Saint Anthony'S HospitalComment on above:Performed By: #### CMP, CBCA ####[facility] ([id number])[address] [place] [address] 60802OIX (Bld) [#/Vol]10.0 10*3/uLNormal4.0-11.0ProBaptist Saint Anthony'S HospitalComment on above: Performed By: #### RUBEN CBCA ####[facility] ([id number])[address] [place] [address] 73735VJSAMDHVUZFHW METABOLIC PANELon 72-22-1661Cptgodj [Mass/Vol]4.3 g/dLNormal3.2-5.3PMercy Health Comment on above:Performed By: #### CMP, CBCA ####[facility] ([id number])[address] [place] [address], [place] [address]MLK [Catalytic activity/Vol]108 U/JIzvhjg94-388UcxJjkddrBaptist Saint Anthony'S HospitalComment on above: Performed By: #### CMP CBCA ####[facility] ([id number])[address] [place] [address], [place] [address]BZP [Catalytic activity/Vol]17 U/LNormal 0-31PMercy HealthComment on above:Performed By: #### CMP, CBCA ####[facility] ([id number])[address] [place] [address] [place] [address]Dnvel gap [Moles/Vol]13 mmol/LNormal5-15ProBaptist Saint Anthony'S HospitalComment on above:Performed By: #### CMP, CBCA ####[facility] ([id number])[address] [place] [address] 09320NSQ [Catalytic activity/Vol]27 U/LNormal0-41ProBaptist Saint Anthony'S HospitalComment on above:Performed By: #### CMP, CBCA ####[facility] ([id number])[address] [place] [address], [place] [address]Gsifyvdgo [Mass/Vol]0.4 mg/dL Normal0.3-1.2PMercy HealthComment on above:Performed By: #### CMP, CBCA ####[facility] ([id number])[address] [place] [address], [place] [address]Qphrocv [Mass/Vol]9.7 mg/dLNormal8.5-10.5PMercy HealthComment on above:Performed By: #### RUBEN, CBCA ####[facility] ([id number])[address] [place] [address], [place] [address]Gbcitgov [Moles/Vol]96 mmol/OFfj79-841LfsJmcsmkBaptist Saint Anthony'S HospitalComment on above: Performed By: #### RUBEN, CBCA ####[facility] ([id number])[address] [place] [address], [place] [address]GJ8 [Moles/Vol]25 mmol/DVwsdad00-01 [facility] SystemComment on above:Performed By: #### RUBEN, CBCA ####[facility] ([id number])[address] [place] [address], [place] [address]Qsvrdcdspb [Mass/Vol]1.44 mg/dLHigh0.40-1.00Bl[facility] Valley Health SystemComment on above:Result Comment: METHOD TRACEABLE TO IDMS STANDARDPerformed By: #### RUBEN, CBCA ####[facility] ([id number])[address] [place] [address] 52405LFD/1.73 sq M.predicted among non-blacks MDRD (S/P/Bld) [Vol rate/Area]37 mL/min/{1.73_m2} Low>59ProBaptist Saint Anthony'S HospitalComment on above:Result Comment: Reported eGFR is based on theCKD-EPI 2020 equation that doesnot use a race coefficient. Performed By: #### RUBEN, CBCA ####[facility] ([id number])[address] [place] [address], [place] [address]Arstyno [Mass/Vol]137 mg/gFPpju23-60 [facility] SystemComment on above:Performed By: #### CMP, CBCA ####[facility] ([id number])[address] [place] [address] 088[address]Ryakxzjng [Moles/Vol]3.8 mmol/LNormal3.5-5.0[facility] Health SystemComfresenius medical care at [facility] on above:Performed By: #### CMP, CBCA ####[facility] ([id number])[address] [place] [address] 67324 Protein [Mass/Vol]8.4 g/dLHigh6.0-8.0[facility] Health SystemComment on above: Performed By: #### RUBEN, CBCA ####[facility] ([id number])[address] [place] [address] 017[address]Akwpgn [Moles/Vol]134 mmol/LNormal 134-146ProBaptist Saint Anthony'S HospitalComment on above:Performed By: #### RUBEN, CBCA ####[facility] ([id number])[address] [place] [address] 08660Uubn nitrogen [Mass/Vol]22 mg/dLNormal5-27[facility] Health SystemComment on above:Performed By: #### CMP, CBCA ####[facility] ([id number])[address] [place] [address] ABDOMEN AND PELVIS WO CONTon 11-89-9808SE ABDOMEN AND PELVIS WO CONTNormal ProMKaiser Permanente Medical CenterGlucose Glucometer (BldC) [Mass/Vol]on 10-27-2024 Glucose [Mass/Vol]157 mg/lBEwsp80-43XboVwdxmkBlanchard Valley Health SystemGlucose [Mass/Vol] 117 mg/qMGtmq20-93RucCspwjzBlanchard Valley Health SystemLactate (P obed) [Moles/Vol]on 48-29-2719RAKPCBJ W/REFLEX1.8 mmol/LNormal0.4-2.0[facility] Comment on above:Result Comment: Result did not trigger repeat Lactate,re-order if needed.Performed By: #### 84382-9 ####[facility] ([id number])[address] [place] [address], REPLACED BY [facility] [place], [place] [address]VTCLY CULTUREon 22-83-4115Wbloxeci identified Cx Nom (U)CULTURE RESULTS 10-50,000 ORGANISMS/mL NORMAL UROGENITAL FLORABerger Hospital Comment on above:Performed By: #### 630-4 ####[facility] ([id number])[address] [facility], [address], [place] [address]MDU MACROSCOPIC NURon 92-52-9991ZQIHJHAAN NURNegativeNormalNEGProBaptist Saint Anthony'S HospitalComment on above:Performed By: #### NUM ####[facility] ([id number])[address] [place] [address], REPLACED BY [facility] [place], [place] [address]MDYON/HGB NURMODERATEAbnormalNEG Pro[facility] Mercy Medical CenterComment on above:Performed By: #### NUM ####[facility] ([id number])[address] [place] [address], REPLACED BY [facility] [place], [place] [address]MADXORA NURNegativeNormalNEGBlanchard Valley Health SystemComment on above: Performed By: #### NUM ####[facility] ([id number])[address] [place] [address], REPLACED BY [facility] [place], [place] [address]VVRONZL NUR15 mg/dLAbnormalNEGProBaptist Saint Anthony'S HospitalComment on above:Performed By: #### NUM ####[facility] ([id number])[address] [place] [address], REPLACED BY [facility] [place] [address] LEUKOCYTE ESTERASE NURSmallAbnormalNEGProBaptist Saint Anthony'S HospitalComment on above:Performed By: #### NUM ####[facility] ([id number])[address] [place] [address], REPLACED BY [facility] [place], [place] [address]DPMXDJP NURNegativeNormalNEGProBaptist Saint Anthony'S HospitalComment on above:Performed By: #### NUM ####[facility] ([id number])[address] [place] [address], [place] [address]ZM MARYJO 5.4Parzsi5.0-8.5PMercy HealthComment on above:Performed By: #### NUM ####[facility] ([id number])[address] [place] [address], [place] [address]CEJXYXW ESE113 mg/dLAbnormalNEGProBaptist Saint Anthony'S Hospital Comment on above:Performed By: #### NUM ####[facility] ([id number])[address] [place] [address], [place] [address]KBHRIGOJ GRAVITY NUR1.138Whsqyp8.003-1.035ProBaptist Saint Anthony'S HospitalComment on above:Performed By: #### NUM ####[facility] ([id number])[address] [place] [address], [place] [address]CEOULUDEPTYT NUR0.2 eu/dLNormal<1.1PMercy HealthComment on above:Performed By: #### NUM ####[facility] ([id number])[address] [place] [address], [place] [address]XKNTV METABOLIC PANLon 11-72-6332Mocwd gap [Moles/Vol]10 mmol/LNormal5-15ProBaptist Saint Anthony'S HospitalComment on above:Performed By: #### CARMEN 90263-1, BMP ####[facility] ([id number])[address] [place] [address], [place] [address]Hnoxsrg [Mass/Vol]9.4 mg/dLNormal8.5-10.5PMercy HealthComment on above:Performed By: #### CARMEN, 09703-7, BMP ####[facility] ([id number])[address] [place] [address], [place] [address]Pxownoxa [Moles/Vol]103 mmol/MMwseja36-762XpwZofddoBaptist Saint Anthony'S HospitalComment on above: Performed By: #### CARMEN, 89177-2, BMP ####[facility] ([id number])[address] [place] [address]12[address]CM9 [Moles/Vol]23 mmol/GEzdwsh25-19KyqVrnewe [facility]remont HospitalComment on above:Performed By: #### CARMEN 23283-8, BMP ####[facility] ([id number])[address] [place] [address] 30506Srvmjdjbli [Mass/Vol]1.49 mg/dLHigh0.40-1.00 ProMKaiser Permanente Medical CenterComment on above:Result Comment: METHOD TRACEABLE TO IDMS STANDARDPerformed By: #### CARMEN 18839-2, BMP ####[facility] ([id number])[address] [place] [address] 92275HSN/1.73 sq M.predicted among non-blacks MDRD (S/P/Bld) [Vol rate/Area]36 mL/min/{1.73_m2} Low>59ProBaptist Saint Anthony'S HospitalComment on above:Result Comment: Reported eGFR is based on theCKD-EPI 2020 equation that doesnot use a race coefficient. Performed By: #### CARMEN, 29378-6, BMP ####[facility] ([id number])[address] [place] [address] 67[address]Nmmwarl [Mass/Vol]185 mg/uWAczx61-58GodUhfsurBaptist Saint Anthony'S HospitalComment on above:Performed By: #### CARMEN 15941-8, BMP ####[facility] ([id number])[address] [place] [address] 27[address]Xzgpflckt [Moles/Vol]4.5 mmol/LNormal 3.5-5.0ProBaptist Saint Anthony'S HospitalComfresenius medical care at [facility] on above:Result Comment: SPECIMEN HEMOLYZED, RESULTS INCREASEDPerformed By: #### CARMEN, 36297-4, BMP ####[facility] ([id number])[address] [place] [address], [place] [address]Kcdslp [Moles/Vol]136 mmol/FWqqjck199-784KteBbgvuo [facility] HospitalComment on above:Performed By: #### CARMEN, 01555-2, BMP ####[facility] ([id number])[address] [place] [address] 94846Tybc nitrogen [Mass/Vol]23 mg/dLNormal5-27ProBaptist Saint Anthony'S HospitalComment on above:Performed By: #### CARMEN 68608-9, BMP ####[facility] ([id number])[address] [place] [address], [place] [address]FMX AND AUTO DIFFon 03-54-5282OUZLHRAJ BASOPHIL0.1 X10E9/LNormal0.0-0.2ProMedica Mercy Medical CenterComment on above: Performed By: #### CARMEN, 26562-3, BMP ####[facility] ([id number])[address] [place] [address], [place] [address]ZMHKEQOW NEUTROPHIL5.5 X10E9/LNormal1.5-6.6ProBaptist Saint Anthony'S HospitalComment on above: Performed By: #### CARMEN 37886-1, BMP ####[facility] ([id number])[address] [place] [address] 93471Sdkjagtdw/100 WBC (Bld)0.8 %NormalProBaptist Saint Anthony'S HospitalComment on above:Performed By: #### CARMEN, 78148-0, BMP ####[facility] ([id number])[address] [place] [address] 86142Lqqwdxvhpmc (Bld) [#/Vol]0.2 10*3/uLNormal 0.0-0.4ProBaptist Saint Anthony'S HospitalComment on above:Performed By: #### CARMEN 25330-5, BMP ####[facility] ([id number])[address] [place] [address] 88591Kmshyyixrgw/100 WBC (Bld)2.2 %NormalProBaptist Saint Anthony'S HospitalComment on above:Performed By: #### CARMEN 56298-2, BMP ####[facility] ([id number])[address] [place] [address] 559[address]Ectugsjmbmb distribution width (RBC) [Ratio]15.8 %High 11.5-15.0ProBaptist Saint Anthony'S HospitalComment on above:Performed By: #### CARMEN 06616-2, BMP ####[facility] ([id number])[address] [place] [address] 81359Eaedmlzvqv (Bld) [Volume fraction]32.2 %Cls08-19 ProMKaiser Permanente Medical CenterComment on above:Performed By: #### CARMEN 78053-5, BMP ####[facility] ([id number])[address] [place] [address] 78254Vvtmxzcrdt (Bld) [Mass/Vol]10.7 g/dLLow11.7-15.5PMercy HealthComment on above:Performed By: #### CARMEN 05435-0, BMP ####[facility] ([id number])[address] [place] [address] 76427Rwekadqbpem (Bld) [#/Vol]1.9 10*3/uLNormal1.0-3.5PMercy HealthComment on above:Performed By: #### CARMEN 11707-7, BMP ####[facility] ([id number])[address] [place] [address] 59989Euzatwaklkh/100 WBC (Bld)22.1 %NormalProBaptist Saint Anthony'S HospitalComment on above:Performed By: #### CARMEN 39298-5, BMP ####[facility] ([id number])[address] [place] [address] 55987ZWY (RBC) [Entitic mass]28.1 ygFjdodj44-19MtxSbepltBaptist Saint Anthony'S HospitalComment on above:Performed By: #### CARMEN, 35741-3, BMP ####[facility] ([id number])[address] [place] [address] 79020BDJV (RBC) [Mass/Vol]33.1 g/qZQgajyb10-08XgxZyztvjBaptist Saint Anthony'S HospitalComment on above: Performed By: #### CARMEN, 88474-5, BMP ####[facility] ([id number])[address] [place] [address] 68261RZH (RBC) [Entitic vol]85 aTBhvfif70-962BccPdhpxj [facility] HospitalComment on above: Performed By: #### CARMEN, 56546-9, BMP ####[facility] ([id number])[address] [place] [address] 83719Llsgmdslc (Bld) [#/Vol]1.0 10*3/uLHigh0-0.9[facility] Health SystemComment on above:Performed By: #### CARMEN, 98867-4, BMP ####[facility] ([id number])[address] [place] [address] 93987Cnwhmwezf/100 WBC (Bld)11.6 %Normal ProMKaiser Permanente Medical CenterComment on above:Performed By: #### CARMEN, 96374-7, BMP ####[facility] ([id number])[address] [place] [address] 39037Rlzuokbhlbt/100 WBC (Bld)63.3 %NormalProBaptist Saint Anthony'S HospitalComment on above:Performed By: #### CARMEN, 56618-8, BMP ####[facility] ([id number])[address] [place] [address] 55372Amuqqcgv mean volume (Bld) [Entitic vol]8.4 fLNormal7-12ProMedica Mercy Medical CenterComment on above:Performed By: #### CARMEN, 41467-2, BMP ####[facility] ([id number])[address] [place] [address] 42268Leelrleqw (Bld) [#/Vol]368 10*3/lQLogwqu547-732OiqHothlqBlanchard Valley Health System Comment on above:Performed By: #### CARMEN, 99048-1, BMP ####[facility] ([id number])[address] [place] [address] 67834HQH COUNT3.79 X10E12/LLow3.80-5.20[facility] Health SystemComment on above: Performed By: #### CARMEN, 97565-4, BMP ####[facility] ([id number])[address] [place] [address] 65860EAF (Bld) [#/Vol] 8.7 10*3/uLNormal4.0-11.0[facility] Health SystemComment on above:Performed By: #### CARMEN, 22861-9, BMP ####[facility] ([id number])[address] [place] [address] 72522TU ABDOMEN AND PELVIS WO CONTon 21-19-7697AH ABDOMEN AND PELVIS WO CONTNormalProBaptist Saint Anthony'S HospitalTroponin I.cardiac High sensitivity method [Mass/Vol]on HOUR TROP I, HIGH BXSSVGZFVIB56 ng/LHigh<16ProBaptist Saint Anthony'S HospitalComment on above:Result Comment: Elevations of hs-Troponin may be due to causesother than myocardial ischemia.Recommend serial hs-Troponin testing be performed.For the initial evaluation and management of chestpain patients, refer to the algorithms linked below.Emergency Patient:[email or web address]/dl.[email or web address]?d =[email or web address]&dh=1cc5a&a=53054&uh=acaeaInpatient:[email or web address]://[email or web address].Quick Key/dv/dl.aspx? v=[email or web address]&dh=f72e7&r=83689&uh=acaeaPerformed By: #### 93907-5 ####[facility] ([id number])[address] [place] [address] 47795BBHEKYVZ I, HIGH OTYBXTOZQIM85 ng/LHigh<16ProBaptist Saint Anthony'S HospitalComment on above:Result Comment: Elevations of hs-Troponin may be due to causesother than myocardial ischemia.Recommend serial hs-Troponin testing be performed.For the initial evaluation and management of chestpain patients, refer to the algorithms linked below.Emergency Patient:[email or web address]://www.Cardica.Quick Key/dv/dl.aspx?d =[email or web address]&dh=1cc5a&o=82069&uh=acaeaInpatient:[email or web address]://www.[email or web address] Mate/dv/dl.aspx? j=[email or web address]&dh=f72e7&n=94252&uh=acaeaPerformed By: #### CBCA, 45754-7, BMP ####[facility] ([id number])[address] [place] [address] 05[address]TEQAP CULTUREon 05-86-5363Vizhhshx identified Cx Nom (U) CULTURE RESULTS MULTIPLE SPECIES PRESENT. PROBABLE COLLECTION CONTAMINATION. SUGGEST REPEAT SPECIMEN.NormalBlanchard Valley Health SystemComment on above:Performed By: #### 630-4 ####[facility] ([id number])[address], [address], [place] [address]EIT MACROSCOPIC NURon 42-76-4801BOOYYATOL NURNegativeNormal NEGProBaptist Saint Anthony'S HospitalComment on above:Performed By: #### NUM ####[facility] ([id number])[address] [place] [address] 45868VQJLY/HGB NURSmallAbnormalNEGTuscarawas Hospital HospitalComment on above: Performed By: #### NUM ####[facility] ([id number])[address] [place] [address] [place] [address]FEUDKSL NURNegativeNormalNEGProBaptist Saint Anthony'S HospitalComment on above:Performed By: #### NUM ####[facility] ([id number])[address] [place] [address] [place] [address]GKZPPDV NURTraceAbnormalNEGProBaptist Saint Anthony'S HospitalComment on above:Performed By: #### NUM ####[facility] ([id number])[address] [place] [address] 50466CRJUBSXAC ESTERASE NURLargeAbnormalNEGProBaptist Saint Anthony'S HospitalComment on above:Performed By: #### NUM ####[facility] ([id number])[address] [place] [address] [place] [address]QOBDMTT MARYJO PositiveAbnormalNEGProBaptist Saint Anthony'S HospitalComment on above:Performed By: #### NUM ####[facility] ([id number])[address] [place] [address] [place] [address]QK NUR8.3Iayvml6.0-8.5ProMedica Mercy Medical CenterComment on above:Performed By: #### NUM ####[facility] ([id number])[address] [place] [address] [place] [address]RJUCJTA MARJYO>=300AbnormalNEG ProMedica Mercy Medical CenterComment on above:Performed By: #### NUM ####[facility] ([id number])[address] [place] [address] [place] [address]MHRRONKS GRAVITY NUR1.049Epwzcn7.003-1.035ProBaptist Saint Anthony'S HospitalComment on above:Performed By: #### NUM ####[facility] ([id number])[address] [place] [address] [place] [address]BMYZONPEWZJW NUR0.2 eu/dLNormal <1.1PMercy HealthComment on above:Performed By: #### NUM ####[facility] ([id number])[address] [place] [address], [place], [place] [address]SUCU urinalysis dipstick onlyon 75-31-8348Znrarcjtoh (U)cloudy [facility] SystemExternal Poct Urine BilirubinNegativeProMedica Health SystemExternal Poct Urine BloodTracePUniversity [facility] Center [facility] Health SystemExternal Poct Urine ColoryellowProMedica Health SystemExternal Poct Urine GlucoseNegativeProMedica Health SystemExternal Poct Urine KetonesNegativeProMedica Health SystemExternal Poct Urine Leukocyte Esterase2+[facility]External Poct Urine NitritePositiveProMedica Health SystemExternal Poct Urine Ph6.5PUniversity Medical Center [facility] Health SystemExternal Poct Urine ProteinTracePUniversity Medical Center [facility] [place] Health SystemExternal Poct Urine Specific Gravity1.020[facility] SystemExternal Poct Urine Urobilinogen0.2 [facility] SystemProMedica Health SystemCT CARDIAC W C STC MORP CARD ONLY on [id number] CARDIAC W C STC MORP CARD ONLYEXAMINATION: CT HEART WITH CONTRAST MORPHOLOGY ONLY 01/13/2023 [...] valve measurements were analyzed and provided by [employer] and are reported separately to the cardiology department. 3. Severe triple-vessel coronary artery calcifications. 4. Small sliding hiatal hernia. Interpreted by: Ning Parra MD Signed by: Ning Parra MD 01/18/23 Final resultNormalMercy Sherman Oaks Hospital And The Grossman Burn CenterCTA CHEST ABDOMEN PELVIS W CONTRASTon [id number] CHEST ABDOMEN PELVIS W CONTRASTEXAMINATION: CTA OF THE CHEST, ABDOMEN AND PELVIS [...] with a couple of ill-defined sclerotic foci. NON DESTRUCTIVE TESTER shunt tubing in the right neck [...] adenopathy. Very small fat containing umbilical hernia. NON DESTRUCTIVE TESTER shunt tubing enters the abdomen in [...] pelvis which may be related to the NON DESTRUCTIVE TESTER shunt catheter. There is a cystic [...] with measurements for planned (more content not included)...NormalMercy Sherman Oaks Hospital And The Grossman Burn CenterNo acute abnormality identified on CTA of the [...] recommended. 5 mm subpleural right lung nodule. NON DESTRUCTIVE TESTER shunt noted. Small hiatal hernia. The [...] Radiol 2010;7:754-773 [facility] RIS CONSOLIDATEDEXAMINATION: CTA OF THE CHEST, ABDOMEN AND PELVIS [...] with a couple of ill-defined sclerotic foci. NON DESTRUCTIVE TESTER shunt tubing in the right neck [...] adenopathy. Very small fat containing umbilical hernia. NON DESTRUCTIVE TESTER shunt tubing enters the abdomen in [...] pelvis which may be related to the NON DESTRUCTIVE TESTER shunt catheter. There is a cystic [...] gluteal regions. [facility] Tato Mcdonald MD - 01/15/2023 EXAMINATION: CTA OF THE [...] with a couple of ill-defined sclerotic foci. NON DESTRUCTIVE TESTER shunt tubing in the right neck [...] adenopathy. Very small fat containing umbilical hernia. NON DESTRUCTIVE TESTER shunt tubing enters the abdomen in [...] pelvis which may be related to the NON DESTRUCTIVE TESTER shunt catheter. There is a cystic [...] flank and gluteal regions. (more content not included)...[employer] Work Phone: cTA CHEST ABDOMEN PELVIS W CONTRASTOrdered By: Tato Syed on [id number] [employer] Work Phone: PULMONARY FUNCTIONon [id number] FUNCTION[address] [id number] PULMONARY FUNCTION PATIENT NAME: CUCA DEE : 1945 MED REC NO: [id number] ROOM: ACCOUNT NO: [id number] ADMIT DATE: 01/13/2023 PROVIDER: Whit Maloney DATE [...] correlation is recommended. WHIT MALONEY [id number] Doc#: [id number] CC:[facility] CenterCTA CHEST ABDOMEN PELVIS W CONTRASTon 30-53-3227Pwtdldvey Study observation (narrative)[facility]ON [facility] Work Phone: poc Glucose Fingerstickon 51-25-6543Prrcyam [Mass/Vol] 104 mg/dL65 - 105 mg/dLBON ORO VALLEY HOSPITALFitfullyBON SECFitfullyBasic Metabolic Panelon 17-57-3654Qjcjo gap [Moles/Vol]11 mmol/L9 - 17 mmol/LBON ORO VALLEY HOSPITALpaOnde HEALTHCalcium [Mass/Vol]9.0 mg/dL8.6 - 10.4 mg/dLBON LRN HEALTHChloride [Moles/Vol]105 mmol/L98 - 107 mmol/LBON LRN HEALTHCO2 [Moles/Vol]20 mmol/L20 - 31 mmol/LBON LRN HEALTHCreatinine [Mass/Vol] 1.04 mg/dLHigh0.50 - 0.90 mg/dLBON DacentecGFR/1.73 sq M.predicted MDRD (S/P/Bld) [Vol rate/Area]56 mL/min/{1.73_m2}Low- PINFBON DacentecComment on above: These results are not intended [...] therapy that affects renal tubular secretion. Glucose [Mass/Vol]131 mg/lSNtpe03 - 99 mg/dLBON [facility] Interpretation and review of laboratory resultsAbnormalCENTRA [facility]OU[facility] Potassium [Moles/Vol]4.3 mmol/L3.7 - 5.3 mmol/LBON [facility] HOSPITALSodium [Moles/Vol]136 mmol/L135 - 144 mmol/LBON [facility]UN[facility] HOSPITALUrea nitrogen (BldV) [Mass/Vol]17 mg/dL8 - 23 mg/dLBON [facility] / AVERA HEALTHBasic Metabolic Profon 74-79-7445Okzud gap [Moles/Vol]11 mmol/LNormal9-17 [facility] HospitalComment on above:Performed By: #### FLORINA BMPX #### DOZ [address] [place] [address] Biological Lab Technician: LANG Warealcium [Mass/Vol]9.0 mg/dLNormal8.6-10.4[facility] HospitalComment on above:Performed By: #### FLORINA, BMPX #### DOZ [address] [place] [address] Biological Lab Technician: LANG Warehloride [Moles/Vol]105 mmol/KPfsckt77-573OpkpcMercy Health – The Jewish HospitalComment on above:Performed By: #### FLORINA, BMPX #### DOZ [address] [place] [address] Biological Lab Technician: LANG WareO2 [Moles/Vol]20 mmol/XNwnyzc55-10IaxbjMercy Health – The Jewish HospitalComment on above:Performed By: #### FLORINA, BMPX #### DOZ [address] [place] [address] Biological Lab Technician: LANG Warereatinine [Mass/Vol]1.04 mg/dLHigh0.50-0.90 [facility] HospitalComment on above:Performed By: #### FLORINA, BMPX #### [address] [address] Biological Lab Technician: Luis Solis MDGFR/1.73 sq M.predicted among non-blacks MDRD (S/P/Bld) [Vol rate/Area]56 mL/min/{1.73_m2}Low>60[facility] HospitalComment on above:Result Comment: These results are not intended for [...] or following therapy that affects renal tubular secretion.Performed By: #### FLORINA BMPX #### [facility] [employer] [address] [place] [address] Biological Lab Technician: Luis Solis MDGlucose [Mass/Vol]131 mg/vSXgnc43-54NlphtCommunity Hospital of San BernardinoComment on above:Performed By: #### FLORINA BMPX #### [address] [address] Biological Lab Technician: ANDRE Wareotassium [Moles/Vol]4.3 mmol/LNormal3.7-5.3 [facility] HospitalComment on above:Performed By: #### FLORINA, BMPX #### [facility] [employer] [address] [place] [address] Biological Lab Technician: Lius Solis MDSodium [Moles/Vol]136 mmol/GGzbwgs951-454DmqztMercy Health – The Jewish HospitalComment on above:Performed By: #### FLORINA, BMPX #### [address] [address] Biological Lab Technician: Luis Solis MDUrea nitrogen [Mass/Vol]17 mg/dLNounc hospitals hillsborough campus8-23[facility] HospitalComment on above:Performed By: #### FLORINA, BMPX #### DOZ [address] [place] [address] [id number] Biological Lab Technician: Luis Solis MDHemoglobin and Hematocriton 37-67-5937Quqqihasse (Bld) [Volume fraction]25.5 %Low36.3 - 47.1 %[facility]UN[facility] HOSPITALHemoglobin (Bld) [Mass/Vol]7.9 g/dLLow11.9 - 15.1 g/dLBON [facility] Interpretation and review of laboratory resultsAbnormalBON [facility] BON [facility] HOSPITALHgb/Hcton 65-60-2963Cgaaiordbb (Bld) [Volume fraction] 25.5 %Low36.3-47.1MCommunity Hospital of San BernardinoComment on above:Performed By: #### FLORINA, BMPX #### DOZ [address] [place] [address] [phone] Biological Lab Technician: Luis Solis MDHemoglobin (Bld) [Mass/Vol]7.9 g/dLLow11.9-15.1 [facility] HospitalComment on above:Performed By: #### FLORINA, BMPX #### DOZ [address] [place] [address] [id number] Biological Lab Technician: Luis Solis MDLaboratory - Blood bankon 71-04-1900Tyvvo product type Nom (BPU)Leukocyte Reduced Red CellBON KNOX COMMUNITY HOSPITALNo Panel Informationon 38-97-9404Ungbl Bank ISBT Product Blood [id number] [facility] HOSPITALBlood Bank Unit Type and RhNegativeBON [facility] HOSPITALCrossmatch ResultCOMPATIBLECENTRA SOUTHSIDE COMMUNITY HOSPITALDispense StatusTRANSFUSEDBON [facility] HOSPITALTransfusion StatusOK TO TRANSFUSEBON [facility]NO[facility] COMM[facility]ITY HOSPITALUnit Kcdiiyy6MBU [facility]OSPITALPO Glucose Fingerstickon 17-36-1070Rifvejm [Mass/Vol]105 mg/dL65 - 105 mg/dLBON [facility] DAYTONY HEALTHBON [facility] DAYTONY HEALTHGlucose [Mass/Vol]119 mg/qRJyjl43 - 105 mg/dLBON [facility]ST. [facility] HEALTH Interpretation and review of laboratory resultsAbnormalBON [facility]ALTH [facility] HEALTHGlucose [Mass/Vol]159 mg/hQOctm03 - 105 mg/dLBON SECTRI-STATE MEMORIAL HOSPITALY HEALTHInterpretation and review of laboratory resultsAbnormalBON [facility]Y HEALTHBON [facility] HEALTHGlucose [Mass/Vol]70 mg/dL65 - 105 mg/dLBON [facility]AD[facility] DAYTONAugusto HEALTHBON [facility] DAYTONY HEALTHGlucose [Mass/Vol]41 mg/dLLow65 - 105 mg/dLBON SECST. [facility] HEALTHComment on above:Critical NotedInterpretation and review of laboratory resultsAbnormalBON [facility]AD[facility] DAYTONAugusto HEALTHBON [facility] HEALTHTYPE AND SCREENon 20-12-3920RUV/RhNegativeBON [facility] HEALTH Arm Band [id number] [facility] HEALTHBlood Bank Blood Product Expiration [id number] [facility] HEALTHBlood Bank Blood Product Expiration [id number] [facility] HEALTHBlood Bank Blood Product Expiration [id number] [facility] HEALTHBlood product unit ID (Dose) [#][id number] [facility] HEALTHBlood product unit ID (Dose) [#] [id number] [facility] HEALTHBlood product unit ID (Dose) [#] [id number] [facility] HEALTHExpiration Date12/10/2022,2359BON [facility] HEALTHProduct Code Blood [id number] [facility] HEALTHProduct Code Blood ZngaY1715A58BLS [facility] HEALTHProduct Code Blood [id number] [facility] HEALTHUnit Issue Date/[id number] [facility] HEALTHUnit Issue Date/[id number] [facility] HEALTHUnit Issue Date/Time [id number] [facility] DAYTONY HEALTHBON [facility] HEALTHBasic Metab w/rfx MG on 15-97-8665Qgbts gap [Moles/Vol]10 mmol/LNormal9-17[facility] HospitalComment on above:Performed By: #### FLORINA, BMPX #### [facility] [address] [place] [address] Biological Lab Technician: LANG Warealcium [Mass/Vol]8.6 mg/dLNormal8.6-10.4[facility] HospitalComment on above:Performed By: #### FLORINA, BMPX #### [facility] [address] [place] [address] Biological Lab Technician: LANG Warehloride [Moles/Vol]106 mmol/FJhfici36-715YsketMercy Health – The Jewish HospitalComment on above:Performed By: #### FLORINA, BMPX #### [facility] [address] [place] [address] Biological Lab Technician: Luis Solis MDCO2 [Moles/Vol]21 mmol/BMkctrd10-08QwgewMercy Health – The Jewish HospitalComment on above:Performed By: #### FLORINA, BMPX #### [facility] [address] [place] [address] Biological Lab Technician: LANG Warereatinine [Mass/Vol]1.33 mg/dLHigh0.50-0.90 [facility] HospitalComment on above:Performed By: #### FLORINA, BMPX #### [facility] [employer] [address] [place] [address] Biological Lab Technician: Luis Solis MDGFR/1.73 sq M.predicted among non-blacks MDRD (S/P/Bld) [Vol rate/Area]41 mL/min/{1.73_m2}Low>60[facility] HospitalComment on above:Result Comment: Effective Aug 17, 2022 These results [...] or following therapy that affects renal tubular secretion.Performed By: #### FLORINA BMPX #### [place] [address] Biological Lab Technician: Luis Solis MDGlucose [Mass/Vol]102 mg/qTBbxc40-33EruaeCommunity Hospital of San BernardinoComment on above:Performed By: #### FLORINA, BMPX #### [place] [address] Biological Lab Technician: ANDRE Wareotassium [Moles/Vol]4.1 mmol/LNormal3.7-5.3 [facility] HospitalComment on above:Performed By: #### FLORINA, BMPX #### [place] [address] Biological Lab Technician: JOHNATHAN Wareodium [Moles/Vol]137 mmol/RBmpnha463-079RybkaMercy Health – The Jewish HospitalComment on above:Performed By: #### FLORINA BMPX #### [address] [address] Biological Lab Technician: Luis Solis MDUrea nitrogen [Mass/Vol]19 mg/dLNormal8-23[facility] HospitalComment on above:Performed By: #### FLORINA BMPX #### [place] [address] Biological Lab Technician: Luis Solis MDBawestlake regional hospital Metabolic Panel w/ Reflex to MGon 34-59-8281Okcof gap [Moles/Vol]10 mmol/L9 - 17 mmol/LBON [facility] HEALTH Calcium [Mass/Vol]8.6 mg/dL8.6 - 10.4 mg/dLBON [facility] HEALTHChloride [Moles/Vol]106 mmol/L98 - 107 mmol/LBON [facility] HEALTHCO2 [Moles/Vol]21 mmol/L20 - 31 mmol/LBON [facility] HOSPITALCreatinine [Mass/Vol]1.33 mg/dLHigh 0.50 - 0.90 mg/dLBON KNOX COMMUNITY HOSPITALGFR/1.73 sq M.predicted MDRD (S/P/Bld) [Vol rate/Area]41 mL/min/{1.73_m2}Low- PINFBON KNOX COMMUNITY HOSPITALComment on above: Effective Aug 17, 2022 These [...] therapy that affects renal tubular secretion. Glucose [Mass/Vol]102 mg/qOZhwz97 - 99 mg/dLBON [facility] Interpretation and review of laboratory resultsAbCentra Lynchburg General Hospital Potassium [Moles/Vol]4.1 mmol/L3.7 - 5.3 mmol/LBON [facility] COMMUNITY HOSPITALSodium [Moles/Vol]137 mmol/L135 - 144 mmol/LBON [facility]UN[facility] HOSPITALUrea nitrogen (BldV) [Mass/Vol]19 mg/dL8 - 23 mg/dLBON [facility] / AVERA HEALTHHemoglobin and Hematocriton 93-85-2870Amsuorwsyg (Bld) [Volume fraction] 25.6 %Low36.3 - 47.1 %[facility] HOSPITALHemoglobin (Bld) [Mass/Vol]8.0 g/dLLow11.9 - 15.1 g/dLBON KNOX COMMUN[facility] HOSPITALInterpretation and review of laboratory resultsAbnormCarilion Roanoke [facility] Hematocrit (Bld) [Volume fraction]23.5 %Low36.3 - 47.1 %[facility] Hemoglobin (Bld) [Mass/Vol]7.1 g/dLLow11.9 - 15.1 g/dLBON [facility] Interpretation and review of laboratory resultsAbCentra Lynchburg General Hospital BON [facility] HOSPITALHgb/Hcton 76-09-6526Vzarrpheyg (Bld) [Volume fraction] 25.6 %Low36.3-47.1MCommunity Hospital of San BernardinoComment on above:Performed By: #### HH, BMPX #### [facility] [address] [place], [place] [phone] Biological Lab Technician: Luis Solis MDHemoglobin (Bld) [Mass/Vol]8.0 g/dLLow11.9-15.1 [facility] HospitalComment on above:Performed By: #### FLORINA, BMPX #### [facility] [address] [place] [address] [phone] Biological Lab Technician: Luis Solis MDHematocrit (Bld) [Volume fraction]23.5 %Low 36.3-47.1MCommunity Hospital of San BernardinoComment on above:Performed By: #### FLORINA, BMPX #### [facility] [address] [place] [address] [phone] Biological Lab Technician: Luis Solis MDHemoglobin (Bld) [Mass/Vol]7.1 g/dLLow11.9-15.1 [facility] HospitalComment on above:Performed By: #### FLORINA, BMPX #### [facility] [address] [place] [address] Biological Lab Technician: POLO Ware Glucose Fingerstickon 20-94-8361Sffiyiu [Mass/Vol]143 mg/bWChsw61 - 105 mg/dLBON KNOX COMMUNITY HOSPITALInterpretation and review of laboratory resultsAbnormalCARILION CLINICGlucose [Mass/Vol]96 mg/dL65 - 105 mg/dLBON [facility] / [facility] HEALTHGlucose [Mass/Vol]114 mg/fATvzb35 - 105 mg/dLBON [facility] HOSPITALInterpretation and review of laboratory resultsAbnormalCARILION CLINICGlucose [Mass/Vol]111 mg/sMSupj53 - 105 mg/dLBON [facility]UN[facility] HOSPITALInterpretation and review of laboratory results Merged With Swedish HospitalBON [facility] HOSPITALBON [facility] HEALTHType + Screenon 41-94-1763Kewp + ScreenSample Expiration 12/10/2022,2359 Arm Band Number [id number] ABO/Rh(D) O NEGATIVE Antibody Screen NEGATIVE Unit Number [id number] Blood Component Type Leukocyte Reduced Red Cell Unit Division 00 Status of Unit TRANSFUSED Transfusion Status OK TO TRANSFUSE Crossmatch Result COMPATIBLE Unit Number [id number] Blood Component Type Leukocyte Reduced Red Cell Unit Division 00 Status of Unit TRANSFUSED Transfusion Status OK TO TRANSFUSE Crossmatch Result COMPATIBLE Unit Number [id number] Blood Component Type Leukocyte Reduced Red Cell Unit Division 00 Status of Unit TRANSFUSED Transfusion Status OK TO TRANSFUSE Crossmatch Result COMPATIBLENormalMercy Health – The Jewish HospitalComment on above:Performed By: #### MONA, BMPX #### DOZ [address] [place], [place] [id number] Biological Lab Technician: Noni Ware Metab w/rfx MGon 65-22-3697Klctm gap [Moles/Vol]9 mmol/LNormal9-17[facility] HospitalComment on above: Performed By: #### MONA BMPX #### DOZ [address] [place] [address] Biological Lab Technician: LANG aWrealcium [Mass/Vol]8.6 mg/dLNormal8.6-10.4[facility] HospitalComment on above:Performed By: #### MONA, BMPX #### DOZ [address] [place], [place] [address] Biological Lab Technician: LANG Warehloride [Moles/Vol]106 mmol/DSrrgul15-953DtvemMercy Health – The Jewish HospitalComment on above:Performed By: #### MONA, BMPX #### DOZ [address] [place] [address] Biological Lab Technician: LANG WareO2 [Moles/Vol]24 mmol/VIxshuq65-39RrojeMercy Health – The Jewish HospitalComment on above:Performed By: #### MONA BMPX #### [facility] [employer] [address] [place] [address] Biological Lab Technician: LANG Warereatinine [Mass/Vol]1.33 mg/dLHigh0.50-0.90 [facility] HospitalComment on above:Performed By: #### MONA, BMPX #### [address] [address] Biological Lab Technician: Luis Solis MDGFR/1.73 sq M.predicted among non-blacks MDRD (S/P/Bld) [Vol rate/Area]41 mL/min/{1.73_m2}Low>60[facility] HospitalComment on above:Result Comment: Effective Aug 17, 2022 These results [...] or following therapy that affects renal tubular secretion.Performed By: #### MONA BMPX #### [facility] [employer] [address] [place] [address] Biological Lab Technician: Luis Solis MDGlucose [Mass/Vol]160 mg/oYHxbt52-17McdybCommunity Hospital of San BernardinoComment on above:Performed By: #### WILSON DUNNX #### [facility] [employer] [address] [place] [address] Biological Lab Technician: ANDRE Wareotassium [Moles/Vol]4.4 mmol/LNormal3.7-5.3 [facility] HospitalComment on above:Performed By: #### MONA, BMPX #### [address] [address] Biological Lab Technician: JOHNATHAN Wareodium [Moles/Vol]139 mmol/WVgxykl813-290OrvnkMercy Health – The Jewish HospitalComment on above:Performed By: #### WILSON DUNNX #### [facility] [address] [place], [place] 5400[address] Biological Lab Technician: Luis Solis MDUrea nitrogen [Mass/Vol]21 mg/dLNormal8-23[facility] HospitalComment on above:Performed By: #### MONA BMPX #### [facility] [address] [place], [place] 0379[address] Biological Lab Technician: Luis Solis MDBasic Metabolic Panelon 19-16-4241Kabtd gap [Moles/Vol]7 mmol/LLow9 - 17 mmol/LBON LRN HEALTHCalcium [Mass/Vol]8.5 mg/dLLow8.6 - 10.4 mg/dLBON SECFitfullyChloride [Moles/Vol]110 mmol/L High98 - 107 mmol/LBON SECFitfullyCO2 [Moles/Vol]25 mmol/L20 - 31 mmol/LBON SECFitfullyCreatinine [Mass/Vol]1.43 mg/dLHigh0.50 - 0.90 mg/dLBON DacentecGFR/1.73 sq M.predicted MDRD (S/P/Bld) [Vol rate/Area]38 mL/min/{1.73_m2}Low- PINFBON SECFitfullyComment on above: Effective Aug 17, 2022 These [...] therapy that affects renal tubular secretion. Glucose [Mass/Vol]124 mg/mXLiap72 - 99 mg/dLBON Dacentec Interpretation and review of laboratory resultsAbnormalBON Dacentec Potassium [Moles/Vol]4.7 mmol/L3.7 - 5.3 mmol/LBON KNOX COMMUNITY HOSPITALSodium [Moles/Vol]142 mmol/L135 - 144 mmol/LBON [facility] COMMUNITY HOSPITALUrea nitrogen (BldV) [Mass/Vol]23 mg/dL8 - 23 mg/dLBON [facility] / AVERA HEALTHBasic Metabolic Panel w/ Reflex to MGon 67-88-7012Ajjzd gap [Moles/Vol]9 mmol/L9 - 17 mmol/LBON [facility] HEALTHCalcium [Mass/Vol]8.6 mg/dL8.6 - 10.4 mg/dLBON KNOX COMMUNITY HOSPITALChloride [Moles/Vol]106 mmol/L98 - 107 mmol/LBON [facility] COMMUNITY HOSPITALCO2 [Moles/Vol]24 mmol/L20 - 31 mmol/LBON [facility]UNITY HOSPITALCreatinine [Mass/Vol]1.33 mg/dLHigh0.50 - 0.90 mg/dLBON KNOX COMMUNITY HOSPITALGFR/1.73 sq M.predicted MDRD (S/P/Bld) [Vol rate/Area]41 mL/min/{1.73_m2} Low- PINFBON KNOX COMMUNITY HOSPITALComment on above: Effective Aug 17, 2022 These [...] therapy that affects renal tubular secretion. Glucose [Mass/Vol]160 mg/tEQniy63 - 99 mg/dLBON [facility] Interpretation and review of laboratory resultsAbnormalCENTRA [facility] Potassium [Moles/Vol]4.4 mmol/L3.7 - 5.3 mmol/LBON KNOX COMMUNITY HOSPITALSodium [Moles/Vol]139 mmol/L135 - 144 mmol/LBON [facility]NOX COMMUNITY HOSPITALUrea nitrogen (BldV) [Mass/Vol]21 mg/dL8 - 23 mg/dLBON [facility] / AVERA HEALTHBasic Metabolic Profon 87-53-1993Tzqod gap [Moles/Vol]7 mmol/LLow9-17[facility] HospitalComment on above:Performed By: #### BMP, CBC #### [facility] [address] [place] [address] Biological Lab Technician: Luis Solis MDCalcium [Mass/Vol]8.5 mg/dLLow8.6-10.4[facility] HospitalComment on above:Performed By: #### BMP, CBC #### [facility] [address] [place] [address] Biological Lab Technician: Luis Solis MDChloride [Moles/Vol]110 mmol/LMxvj68-318IjsgsMercy Health – The Jewish HospitalComment on above:Performed By: #### BMP, CBC #### [facility] [address] [place] [address] Biological Lab Technician: Luis Solis MDCO2 [Moles/Vol]25 mmol/OHakdic25-96RwdptMercy Health – The Jewish HospitalComment on above:Performed By: #### BMP, CBC #### [facility] [address] [place] [address] Biological Lab Technician: LANG Warereatinine [Mass/Vol]1.43 mg/dLHigh0.50-0.90 [facility] HospitalComment on above:Performed By: #### BMP, CBC #### [facility] [employer] [address] [place] [address] Biological Lab Technician: Luis Solis MDGFR/1.73 sq M.predicted among non-blacks MDRD (S/P/Bld) [Vol rate/Area]38 mL/min/{1.73_m2}Low>60[facility] HospitalComment on above:Result Comment: Effective Aug 17, 2022 These results [...] or following therapy that affects renal tubular secretion.Performed By: #### WILSON, CBC #### [facility] [employer] [address] [place] [address] Biological Lab Technician: Luis Solis MDGlucose [Mass/Vol]124 mg/qFXczu89-87XtkpnCommunity Hospital of San BernardinoComment on above:Performed By: #### BMP, CBC #### [facility] [address] [place] [address] Biological Lab Technician: ANDRE Wareotassium [Moles/Vol]4.7 mmol/LNormal3.7-5.3 [facility] HospitalComment on above:Performed By: #### WILSON, CBC #### [place] [address] Biological Lab Technician: JOHNATHAN Wareodium [Moles/Vol]142 mmol/QZnaqda064-186BfwkyMercy Health – The Jewish HospitalComment on above:Performed By: #### WILSON, CBC #### [place] [address] Biological Lab Technician: Luis Solis MDUrea nitrogen [Mass/Vol]23 mg/dLNormal8-23[facility] HospitalComment on above:Performed By: #### WILSON, CBC #### [place] [address] Biological Lab Technician: Emilio Ware 58-77-8261Nizumfxyzbf distribution width (RBC) [Ratio]17.8 %High11.8-14.4[facility] HospitalComment on above:Performed By: #### WILSON, CBC #### [facility] [employer] [address] [place] [address] Biological Lab Technician: Luis Solis MDHematocrit (Bld) [Volume fraction]22.0 %Low 36.3-47.1MCommunity Hospital of San BernardinoComment on above:Performed By: #### BMP, CBC #### [address] [address] Biological Lab Technician: Luis Solis MDHemoglobin (Bld) [Mass/Vol]6.6 g/dLCritically low11.9-15.1MCommunity Hospital of San BernardinoComment on above:Performed By: #### BMP, CBC #### [place] [address] Biological Lab Technician: XOCHILT WareCH (RBC) [Entitic mass]27.5 ekReckdo16.2-33.5 [facility] HospitalComment on above:Performed By: #### BMP, CBC #### [place] [address] Biological Lab Technician: XOCHILT WraeCHC (RBC) [Mass/Vol]30.0 g/kSUbiawa39.4-34.8 [facility] HospitalComment on above:Performed By: #### BMP, CBC #### [place] [address] Biological Lab Technician: XOCHILT WareCV (RBC) [Entitic vol]91.7 hCYpfpfn32.6-102.9 [facility] HospitalComment on above:Performed By: #### BMP, CBC #### [place] [address] Biological Lab Technician: Luis Solis MDNRBC Automated0.0 per 100 WBCNormal0.0[facility] Jewish HospitalComment on above:Performed By: #### BMP, CBC #### [place] [address] Biological Lab Technician: ANDRE Warelatelet mean volume (Bld) [Entitic vol]10.3 fL Normal8.1-13.5[facility] Jewish HospitalComment on above:Performed By: #### BMP, CBC #### [facility] [address] [place] [address] Biological Lab Technician: Danny Waretelets (Bld) [#/Vol]250 10*3/iORaujrk845-457 [facility] HospitalComment on above:Performed By: #### BMP, CBC #### [facility] [address] [place] [address] Biological Lab Technician: Luis Solis MDRBC (Bld) [#/Vol]2.40 10*6/uLLow3.95-5.11[facility] HospitalComment on above:Performed By: #### BMP, CBC #### [facility] [address] [place] [address] Biological Lab Technician: Luis Solis MDWBC (Bld) [#/Vol]9.2 10*3/uLNormal3.5-11.3MCommunity Hospital of San BernardinoComment on above:Performed By: #### BMP, CBC #### [facility] [address] [place] [address] Biological Lab Technician: Luis Solis MDHematocrit (Bld) [Volume fraction]22.0 %Low36.3 - 47.1 %[facility] HOSPITALHemoglobin (Bld) [Mass/Vol]6.6 g/dLCritically low11.9 - 15.1 g/dLBON KNOX COMM[facility] HOSPITALInterpretation and review of laboratory resultsAbnormalBON UC HEALTHH (RBC) [Entitic mass]27.5 pg25.2 - 33.5 pgBON UC HEALTHHC (RBC) [Mass/Vol]30.0 g/dL28.4 - 34.8 g/dLBON UC HEALTHV (RBC) [Entitic vol]91.7 fL82.6 - 102.9 fL [facility] HOSPITALNRBC Automated0.00.0 per 100 WBCBON [facility]X COMM[facility]ITY [facility]ITAL Platelet distribution width (Bld) [Ratio]17.8 %High11.8 - 14.4 %[facility] HOSPITALPlatelet mean volume (Bld) [Entitic vol]10.3 fL8.1 - 13.5 fLSENTARA RMH MEDICAL [facility]ENTER HEALTHPlatelets (Bld) [#/Vol]250 10*3/[facility] RBC (Bld) [#/Vol]2.40 10*6/uLLow3.95 - 5.11 m/[facility] SystemWBC (Bld) [#/Vol]9.2 10*3/uLCARILION CLINIC Hemoglobin and Hematocriton 55-73-5746Tmtdrrbhku (Bld) [Volume fraction]24.4 % Low36.3 - 47.1 %[facility] HOSPITALHemoglobin (Bld) [Mass/Vol]7.4 g/dLLow 11.9 - 15.1 g/dLBON [facility] HEALTHInterpretation and review of laboratory resultsAbnormLewisGale Hospital Alleghany HEALTHHematocrit (Bld) [Volume fraction]24.6 %Low36.3 - 47.1 %[facility] HOSPITALHemoglobin (Bld) [Mass/Vol]7.7 g/dLLow11.9 - 15.1 g/dLBON [facility] HEALTHInterpretation and review of laboratory resultsAbnormLewisGale Hospital [place] HEALTHHematocrit (Bld) [Volume fraction]22.9 %Low36.3 - 47.1 %[facility] HOSPITALHemoglobin (Bld) [Mass/Vol]7.6 g/dLLow11.9 - 15.1 g/dLBON [facility] HEALTHInterpretation and review of laboratory resultsAbnormLewisGale Hospital [place] HEALTHHematocrit (Bld) [Volume fraction]21.9 %Low36.3 - 47.1 %[facility] HOSPITALHemoglobin (Bld) [Mass/Vol]6.5 g/dLCritically low 11.9 - 15.1 g/dLBON [facility] HEALTHInterpretation and review of laboratory resultsAbnormalCARILION CLINICHgb/Hcton 82-75-0768Zsuokyuyit (Bld) [Volume fraction]24.4 %Low36.3-47.1[facility] Burn CenterComment on above:Performed By: #### REJEC, BMPX #### [employer] [address] [place] [address] Biological Lab Technician: Luis Solis MDHemoglobin (Bld) [Mass/Vol]7.4 g/dLLow11.9-15.1 [facility] HospitalComment on above:Performed By: #### REJEC, BMPX #### [facility] [address] [place] [address] Biological Lab Technician: Luis Solis MDHematocrit (Bld) [Volume fraction]24.6 %Low 36.3-47.1[facility] Burn CenterComment on above:Performed By: #### REJEC, BMPX #### [facility] [employer] [address] [place] [address]242 Biological Lab Technician: Luis Solis MDHemoglobin (Bld) [Mass/Vol]7.7 g/dLLow11.9-15.1 [facility] HospitalComment on above:Performed By: #### REJEC, BMPX #### [facility] [address] [place] [address] Biological Lab Technician: Luis Solis MDHematocrit (Bld) [Volume fraction]22.9 %Low 36.3-47.1MercEmanate Health/Queen of the Valley HospitalComment on above:Performed By: #### REJEC, BMPX #### [facility] [employer] [address] [place] [address] Biological Lab Technician: Luis Solis MDHemoglobin (Bld) [Mass/Vol]7.6 g/dLLow11.9-15.1 [facility] HospitalComment on above:Performed By: #### REJEC, BMPX #### [facility] [address] [place] [address] Biological Lab Technician: Luis Solis MDHematocrit (Bld) [Volume fraction]21.9 %Low 36.3-47.1MCommunity Hospital of San BernardinoComment on above:Performed By: #### HH #### [facility] [address] [place] [address]60 Biological Lab Technician: Luis Solis MDHemoglobin (Bld) [Mass/Vol]6.5 g/dLCritically low11.9-15.1MCommunity Hospital of San BernardinoComment on above:Performed By: #### HH #### [facility] [address] [place] [address] Biological Lab Technician: Luis Solis MDHematocrit (Bld) [Volume fraction]23.7 %Low 36.3-47.1MCommunity Hospital of San BernardinoComment on above:Performed By: #### MONA, BMPX #### [facility] [address] [place] [address]356 Biological Lab Technician: Luis Solis MDHemoglobin (Bld) [Mass/Vol]7.6 g/dLLow11.9-15.1 [facility] HospitalComment on above:Performed By: #### MONA, BMPX #### [facility] [employer] [address] [place] [address]59 Biological Lab Technician: POLO Ware Glucose Fingerstickon 59-19-7590Zwhiozr [Mass/Vol]129 mg/aNRyeu21 - 105 mg/dLBON [facility]NOX COMMUN[facility] HOSPITALInterpretation and review of laboratory resultsAbnormCarilion Roanoke Community HospitalGlucose [Mass/Vol]138 mg/hFZrdo22 - 105 mg/dLB[facility] Interpretation and review of laboratory resultsAbnormCarilion [facility] HOSPITALGlucose [Mass/Vol]164 mg/bOPvfw40 - 105 mg/dLBON KNOX COMMUNITY HOSPITALInterpretation and review of laboratory resultsAbnormCarilion Roanoke Community HospitalSPECIMEN REJECTIONon 56-02-3103Jcfuxqi Test [facility] CENTERReason for RejectionUnable to perform testing: Specimen clotted.[facility] Medical Centerimen source Nom (Unsp spec).BLOOD [facility] CLINICSpecimen Rejectionon 12-08-2022 Reason for rejectionUnable to perform testing: Specimen clotted.[facility] Medical CenterComment on above:Performed By: #### REJEC, BMPX #### [facility] [address] [place] [address] [phone] Biological Lab Technician: La Ware of sample.[facility]ty Hospital - CantonComment on above:Performed By: #### REJEC, BMPX #### [facility] [address] [place] [address] [phone] Biological Lab Technician: Josie Ware orderedDayton Osteopathic HospitalComment on above:Performed By: #### REJEC, BMPX #### [facility] [address] [place] [address] [phone] Biological Lab Technician: Luis Solis MDActcraig clotting timeon 87-85-8753Xwfunifbq Clotting Ywoa770UuhgHPFCommunity Health SystemsInterpretation and review of laboratory resultsAbnormCarilion Roanoke Community Hospital CHLORIDE (POC)on 39-73-0299Qbkujinx [Moles/Vol]107 mmol/L98 - 107 mmol/LBON [facility]NOX COMMUNITY HOSPITALCatheterization and angiography procedure details panelon 09-94-4719C[facility] Work Phone: creatinine W/GFR Point of Careon 13-20-9015Ubegqymlrs [Mass/Vol]1.35 mg/dLHigh0.51 - 1.19 mg/dLBON KNOX COMMUNITY HOSPITALeGFR, POC41 mL/min/1.02i4FOR SEC[facility]RS MERCY HEALTHComment on above: Effective Aug 17, 2022 These [...] affects renal tubular secretion. Hemoglobin and Hematocriton 73-82-2126Wjyqzqbvpv (Bld) [Volume fraction]23.7 % Low36.3 - 47.1 %[facility] OpTrip SalesvueHemoglobin (Bld) [Mass/Vol]7.6 g/dLLow 11.9 - 15.1 g/dLBON [facility] Geomagic [facility]OSPITALInterpretation and review of laboratory resultsAbnormCarilion Roanoke Community HospitalHematocrit (Bld) [Volume fraction]24.9 %Low36.3 - 47.1 %[facility] SalesvueHemoglobin (Bld) [Mass/Vol]7.2 g/dLLow11.9 - 15.1 g/dLBON ORO VALLEY HOSPITALFitfullyInterpretation and review of laboratory resultsAbnormCarilion Roanoke Community HospitalHemoglobin and hematocrit, bloodon 57-75-6139Whqlhjwjgg (Bld) [Volume fraction]20 %Low36 - 46 %[facility] OpTrip SalesvueHemoglobin (Bld) [Mass/Vol]6.9 g/dLCritically low12.0 - 16.0 g/dLBON ORO VALLEY HOSPITALFitfullyInterpretation and review of laboratory resultsAbnormCarilion Roanoke Community HospitalHematocrit (Bld) [Volume fraction]30 %Low36 - 46 %[facility] OpTripGERMAN [facility] Hemoglobin (Bld) [Mass/Vol]10.1 g/dLLow12.0 - 16.0 g/dLBON [facility] [employer] Hgb/Hcton 40-99-7459Mufscdlrbj (Bld) [Volume fraction]24.9 %Low36.3-47.1[facility] CenterComment on above:Performed By: #### REJEC, BMPX #### [facility] [address] [place] [address] Biological Lab Technician: Luis Solis MDHemoglobin (Bld) [Mass/Vol]7.2 g/dLLow11.9-15.1 [facility] HospitalComment on above:Performed By: #### REJJESE, BMPX #### [facility] [address] [place], [place] [phone] Biological Lab Technician: Luis Solis MDNo Panel Informationon 27-39-2440Jxucukgaluktdf and review of laboratory resultsAbnoHuron Regional Medical CenterC Glucose Fingerstickon 86-29-5428Dherson [Mass/Vol]197 mg/dLHigh 65 - 105 mg/dLBON KNOX COMMUNITY HOSPITALInterpretation and review of laboratory resultsAbnormCarilion Roanoke Community HospitalGlucose [Mass/Vol]101 mg/dL65 - 105 mg/dLBON [facility]PO[facility] Glucoseon 79-93-8201Ddshvni [Mass/Vol]83 mg/dL74 - 100 mg/dLBON MERCY HEALTH ST. VINCENT MEDICAL CENTERCT urea (BUN)on 94-49-8494Tnma nitrogen [Mass/Vol]25 mg/dL 8 - 26 mg/dLBON KNOX COMMUNITY HOSPITALPOTASSIUM (POC)on 69-20-2202Jdsxuagjy [Moles/Vol]4.2 mmol/L3.5 - 4.5 mmol/LBON KNOX COMMUNITY HOSPITALSODIUM (POC)on 97-30-8052Vibhcc [Moles/Vol]142 mmol/L138 - 146 mmol/LBON [facility] COMMUNITY HOSPITALVL DUP LOWER EXTREMITY ARTERIES RIGHTon 21-98-3623JwgonDarnell Valadez MD - 12/07/2022 [facility] Vascular Lower Extremities Arterial Duplex Procedure Patient Name LUIZ Date of Study 12/07/2022 [facility] Date of 1945 Gender Female Age 77 year(s) Race Room Number 0501 Height: 65 inch, 165.1 cm Corporate ID # [id number] Weight: 208 pounds, 94.3 kg Patient BSA: 2.01 m^2 BMI: 34.61 kg/m^2 MR # [id number] Web Analytics Specialist Whit Gan RVT Interpreting Physician Darnell Monique Referring Referring Physician SKYE MARTINEZ MD Nurse Practitioner Procedure Type of [...] are measured in cm LE Duplex Measurements +---------++-----+-----+------+----+------++---+-----+------+----+--------- + ! !!Right! !Left ! ! !! ! ! ! ! ! +---------++-----+-----+------+----+------++---+-----+------+----+--------- + !Location !!PSV !Ratio!Wave !AP !Trans !!PSV!Ratio!Wave !AP !Trans ! ! !! ! !Desc. !Diam!Diam !! ! !Desc. !Diam!Diam ! +---------++-----+-----+------+----+------++---+-----+------+----+--------- + !Dist EIA !!185 ! ! ! ! !! ! ! ! ! ! +---------++-----+-----+------+----+------++---+-----+------+----+--------- + !Common !!162 !0.88 ! ! ! !! ! ! ! ! ! !Femoral !! ! ! ! ! !! ! ! ! ! ! +---------++-----+-----+------+----+------++---+-----+------+----+--------- + !Prox SFA !!174 ! ! ! ! !! ! ! ! ! ! +---------++-----+-----+------+----+------++---+-----+------+----+--------- + [email or web address] Phone: radiology Study observation (narrative)[email or web address] Phone: VL DUP LOWER EXTREMITY ARTERIES RIGHTOrdered By: Darnell Burk on [id number] [employer] Phone: CHLORIDE (POC)on 01-82-3500Xbnrrjkz [Moles/Vol]105 mmol/L98 - 107 mmol/LBON DacentecCreatinine W/GFR Point of Careon 28-35-2994Xvhgfpqtag [Mass/Vol]1.5 mg/dLHigh0.51 - 1.19 mg/dLBON DacenteceGFR, TMP48iQ/min/1.14j0PJW DacentecComment on above: Effective Aug 17, 2022 These [...] affects renal tubular secretion. Hemoglobin and hematocrit, bloodon 55-00-7276Ihaqkvgvwm (Bld) [Volume fraction] 26 %Low36 - 46 %XamarinHemoglobin (Bld) [Mass/Vol]8.7 g/dLLow 12.0 - 16.0 g/dLBON DacentecNo Panel Informationon 11-24-2022 Interpretation and review of laboratory resultsAbnormalCENTRA SOU[facility]IDE [facility] BON [facility] HOSPITALPOCT Glucoseon 37-20-1917Kqxzzmd [Mass/Vol]135 mg/dLHigh 74 - 100 mg/dLBON KNOX COMMUNITY HOSPITALPOCT urea (BUN)on 72-38-6170LYW BUNResult not available.8 - 26 mg/dLBON KNOX COMMUNITY HOSPITALPOTASSIUM (POC)on 11-24-2022 Potassium [Moles/Vol]5.3 mmol/LHigh3.5 - 4.5 mmol/LBON [facility] Platelet Counton 28-52-6574Eaepajksy (Bld) [#/Vol]314 10*3/fPSutwhv078-169IweaxMercy Health – The Jewish HospitalComment on above:Performed By: #### PLT #### [facility] [address] [place] [address] [phone] Biological Lab Technician: Luis Solis MDPlatelets (Bld) [#/Vol]314 10*3/uLBON [facility] HEALTHSODIUM (POC)on 53-21-6198Fmvgrh [Moles/Vol] 142 mmol/L138 - 146 mmol/LBON KNOX COMMUNITY HOSPITALCult,Bloodon 10-03-2022 Cult,BloodSpecimen Description .BLOOD Special Requests L AC 10ML Culture NO GROWTH 5 DAYS Report Status FINAL 10/03/2022[facility] CenterComment on above:Performed By: #### BC #### [facility] [address] [place] [address] [phone] Biological Lab Technician: Luis Solis MDCult,BloodSpecimen Description .BLOOD Special Requests R AC 10ML Culture NO GROWTH 5 DAYS Report Status FINAL 10/03/2022[facility] Medical CenterComment on above:Performed By: #### HH, BMPX #### [facility] [address] [place] [address] [phone] Biological Lab Technician: Noni Ware Metab w/rfx MGon 89-90-5057Yveom gap [Moles/Vol]9 mmol/LNormal9-17[facility] HospitalComment on above: Performed By: #### FLORINA, BMPX #### [facility] [address] [place] [address] 34106 Biological Lab Technician: LANG Warealcium [Mass/Vol]8.8 mg/dLNormal8.6-10.4[facility] HospitalComment on above:Performed By: #### FLORINA, BMPX #### [facility] [address] [place] [address]105 Biological Lab Technician: LANG Warehloride [Moles/Vol]102 mmol/RXbsbmx50-626AlxwoMercy Health – The Jewish HospitalComment on above:Performed By: #### FLORINA, BMPX #### [facility] [address] [place] [address] 12279 Biological Lab Technician: Luis Solis MDCO2 [Moles/Vol]28 mmol/JBxqhsb06-85RutidMercy Health – The Jewish HospitalComment on above:Performed By: #### FLORINA BMPX #### [facility] [address] [place] [address] 18673 Biological Lab Technician: LANG Warereatinine [Mass/Vol]1.28 mg/dLHigh0.50-0.90 [facility] HospitalComment on above:Performed By: #### FLORINA, BMPX #### [facility] [address] [place] [address] 06248 Biological Lab Technician: Luis Solis MDGFR/1.73 sq M.predicted among non-blacks MDRD (S/P/Bld) [Vol rate/Area]43 mL/min/{1.73_m2}Low>60[facility] HospitalComment on above:Result Comment: Effective Aug 17, 2022 These results [...] or following therapy that affects renal tubular secretion.Performed By: #### FLORINA, BMPX #### [address] [address] Biological Lab Technician: Luis Solis MDGlucose [Mass/Vol]141 mg/uOEkbs39-28KgzqsCommunity Hospital of San BernardinoComment on above:Performed By: #### FLORINA, BMPX #### [place] [address] Biological Lab Technician: ANDRE Wareotassium [Moles/Vol]4.0 mmol/LNormal3.7-5.3 [facility] HospitalComment on above:Performed By: #### FLORINA, BMPX #### [address] [address] Biological Lab Technician: Luis Soils MDSodium [Moles/Vol]139 mmol/OPkttwl724-685EiekkMercy Health – The Jewish HospitalComment on above:Performed By: #### FLORINA, BMPX #### [address] [address] Biological Lab Technician: Luis Solis MDUrea nitrogen [Mass/Vol]18 mg/dLNormal8-23[facility] HospitalComment on above:Performed By: #### FLORINA, BMPX #### [address] [address] Biological Lab Technician: Starla Ware,Urineon 64-86-7949Pglu,UrineSpecimen Description .URINE,STRAIGHT CATHETER Culture ESCHERICHIA COLI >[id number] CFU/ML AEROCOCCUS URINAE 50 to 100,000 CFU/ML [...] <=1 SUSCEPTIBLE Trimethoprim/Sulfa <=20 SUSCEPTIBLE Piperacillin/Tazobactam <=4 SUSCEPTIBLESusceptibleMercy Health – The Jewish HospitalComment on above:Performed By: #### FLORINA, BMPX #### [facility] [address] [place], [place] [id number] Biological Lab Technician: Ritesh Ware 00-36-5688kNDF Coag (Bld) [Time]30.4 s Bcqocp98.5-30.5MerAnaheim General HospitalComment on above:Result Comment: IV Heparin Therapy Range: 48.6-77.8Performed By: #### FLORINA, BMPX #### [facility] [address] [place] [address] Biological Lab Technician: Derrick Wareitoninoriley 45-38-6243Mhvjmugcvhnkf2.23 ng/mLHigh<0.09MerAnaheim General HospitalComment on above:Result Comment: Suspected Sepsis: <0.50 ng/mL Low likelihood [...] entered into the Change in Procalcitonin Calculator (www.eylxet-psl-vwmceypmrh.com) to determine the patient's Mortality Risk Prognosis In healthy neonates, plasma Procalcitonin (PCT) concentrations increase gradually after , reaching peak values at about 24 hours of age then decrease to normal values below 0.5 ng/mL by 48-72 hours of age.Performed By: #### MONA BMPX #### [facility] [employer] [address] [place] [address] Biological Lab Technician: Ritesh Ware 83-30-7165kRTC Coag (Bld) [Time]110.7 s Critically high20.5-30.5[facility] Jewish HospitalComment on above:Result Comment: IV Heparin Therapy Range: 48.6-77.8Performed By: #### PTT #### [place] [address] Biological Lab Technician: Teodora WareT Coag (Bld) [Time]24.1 vGlderf21.5-30.5[facility] HospitalComment on above:Result Comment: IV Heparin Therapy Range: 48.6-77.8Performed By: #### FLORINA, BMPX #### [place] [address] Biological Lab Technician: Luis Solis MDaPTT Coag (Bld) [Time]22.6 aMdnweo40.5-30.5[facility] HospitalComment on above:Result Comment: IV Heparin Therapy Range: 48.6-77.8Performed By: #### HH, BMPX #### [place] [address] Biological Lab Technician: Noni Ware Metab w/rfx MGon 13-87-2498Rkpnn gap [Moles/Vol]10 mmol/LNormal9-17[facility] HospitalComment on above: Performed By: #### MONA, BMPX #### [address] [address] Biological Lab Technician: LANG Warealcium [Mass/Vol]7.6 mg/dLLow8.6-10.4[facility] HospitalComment on above:Performed By: #### MONA, BMPX #### [address] [address] Biological Lab Technician: LANG Warehloride [Moles/Vol]107 mmol/RYsblgt81-793KtqqtMercy Health – The Jewish HospitalComment on above:Performed By: #### MONA, BMPX #### [facility] [employer] [address] [place] [address]41 Biological Lab Technician: Luis Solis MDCO2 [Moles/Vol]23 mmol/TDbaxbt88-07GjezjMercy Health – The Jewish HospitalComment on above:Performed By: #### MONA BMPX #### [address] [address] Biological Lab Technician: LANG Warereatinine [Mass/Vol]1.33 mg/dLHigh0.50-0.90 [facility] HospitalComment on above:Performed By: #### MONA, BMPX #### [address] [address] Biological Lab Technician: Luis Solis MDGFR/1.73 sq M.predicted among non-blacks MDRD (S/P/Bld) [Vol rate/Area]41 mL/min/{1.73_m2}Low>60[facility] HospitalComment on above:Result Comment: Effective Aug 17, 2022 These results [...] or following therapy that affects renal tubular secretion.Performed By: #### MONA, BMPX #### [facility] [address] [place] [address] Biological Lab Technician: Luis Solis MDGlucose [Mass/Vol]243 mg/qCInfa67-91CplcgCommunity Hospital of San BernardinoComment on above:Performed By: #### MONA, BMPX #### [facility] [address] [place] [address]67 Biological Lab Technician: Luis Solis MDPotassium [Moles/Vol]4.5 mmol/LNormal3.7-5.3 [facility] HospitalComment on above:Performed By: #### MONA, BMPX #### [address] [address] Biological Lab Technician: Luis Solis MDSodium [Moles/Vol]140 mmol/IEwpiuu888-145OlnbaMercy Health – The Jewish HospitalComment on above:Performed By: #### MONA, BMPX #### [facility] [address] [address] Biological Lab Technician: Luis Solis MDUrea nitrogen [Mass/Vol]21 mg/dLNormal8-23[facility] Jewish HospitalComment on above:Performed By: #### MONA, BMPX #### [address] [address] Biological Lab Technician: Luis Solis MDBrain Natri. Peptideon 23-40-0687Fygszzxkirf peptide B (Bld) [Mass/Vol]5275 pg/mLHigh<300[facility] Comment on above:Result Comment: An age-independent cutoff point of 300 pg/ml has a 98% negative predictive value excluding acute heart failure.Performed By: #### FLORINA BMPX #### [facility] [address] [address] Biological Lab Technician: Luis Solis MDC-Reactive Proteinon 40-99-5257LSE [Mass/Vol] 48.0 mg/LHigh0.0-5.0[facility] Jewish HospitalComment on above:Performed By: #### MONA, BMPX #### [facility] [employer] [address] [place] [address] Biological Lab Technician: PRYIA Ware with Diffon 95-18-7975Ivz. Basophil0.06 k/uL Normal0.00-0.20[facility] Jewish HospitalComment on above:Performed By: #### FLORINA, BMPX #### [facility] [address] [place] [address] Biological Lab Technician: Tamar Ware.Imm.Granulocyte0.16 k/uLNormal0.00-0.30[facility] HospitalComment on above:Performed By: #### FLORINA, BMPX #### [place] [address] Biological Lab Technician: Tamar Ware.Neutrophil (Seg)10.78 k/uLHigh1.50-8.10[facility] HospitalComment on above:Performed By: #### FLORINA, BMPX #### [facility] [employer] [address] [place] [address] Biological Lab Technician: Luis Solis MDBasophils/100 WBC (Bld)1 %Normal0-2MCommunity Hospital of San BernardinoComment on above:Performed By: #### FLORINA, BMPX #### [facility] [employer] [address] [place] [address] Biological Lab Technician: Luis Solis MDEosinophils (Bld) [#/Vol]0.20 10*3/uLNormal 0.00-0.44[facility] HospitalComment on above:Performed By: #### FLORINA, BMPX #### [address] [address] Biological Lab Technician: CAROLYN Wareosinophils/100 WBC (Bld)2 %Normal1-4[facility] Jewish HospitalComment on above:Performed By: #### FLORINA, BMPX #### [address] [address] Biological Lab Technician: Luis Solis MDErythrocyte distribution width (RBC) [Ratio]16.7 %High11.8-14.4[facility] Jewish HospitalComment on above:Performed By: #### FLORINA, BMPX #### [place] [address] Biological Lab Technician: Luis Solis MDHematocrit (Bld) [Volume fraction]27.2 %Low 36.3-47.1Mwood county hospitaly [facility] Grossman Burn CenterComment on above:Performed By: #### FLORINA, BMPX #### [place] [address] Biological Lab Technician: Luis Solis MDHemoglobin (Bld) [Mass/Vol]8.1 g/dLLow11.9-15.1 [facility] HospitalComment on above:Performed By: #### FLORINA, BMPX #### [place] [address] Biological Lab Technician: Luis Solis MDImmature granulocytes/100 WBC (Bld)1 %Vgqo7AoscpMercy Health – The Jewish HospitalComment on above:Performed By: #### FLORINA, BMPX #### [place] [address] Biological Lab Technician: Luis Solis MDLymphocytes (Bld) [#/Vol]0.74 10*3/uLLow 1.10-3.70[facility] HospitalComment on above:Performed By: #### FLORINA, BMPX #### [address] [address] Biological Lab Technician: Albina Waremphocytes/100 WBC (Bld)6 %Fco28-76WkulcMercy Health – The Jewish HospitalComment on above:Performed By: #### FLORINA, BMPX #### [address] [address] Biological Lab Technician: XOCHILT WareCH (RBC) [Entitic mass]26.9 xpWajzyf62.2-33.5 [facility] HospitalComment on above:Performed By: #### FLORINA, BMPX #### [address] [address] Biological Lab Technician: XOCHILT WareCHC (RBC) [Mass/Vol]29.8 g/hRRfnqgl76.4-34.8 [facility] HospitalComment on above:Performed By: #### FLORINA, BMPX #### [address] [address] Biological Lab Technician: XOCHILT WareCV (RBC) [Entitic vol]90.4 gPQqraaf55.6-102.9 [facility] HospitalComment on above:Performed By: #### FLORINA, BMPX #### [address] [address] Biological Lab Technician: XOCHILT Wareonocytes (Bld) [#/Vol]0.78 10*3/uLNormal 0.10-1.20[facility] HospitalComment on above:Performed By: #### FLORINA, BMPX #### [address] [address] Biological Lab Technician: XOCHILT Wareonocytes/100 WBC (Bld)6 %Normal3-12[facility] The Jewish HospitalComment on above:Performed By: #### FLORINA, BMPX #### [address] [address] Biological Lab Technician: Luis Solis MDNeutrophil (Seg)84 %Uppx17-45EqhvjMercy Health – The Jewish HospitalComment on above:Performed By: #### FLORINA, BMPX #### [facility] [employer] [facility] [place] [address] Biological Lab Technician: KENJI Ware Automated0.2 per 100 WBCHigh0.0Mer[facility] – [facility] Jewish HospitalComment on above:Performed By: #### FLORINA, BMPX #### [address] [address] Biological Lab Technician: Danny Waretelet mean volume (Bld) [Entitic vol]9.9 fL Normal8.1-13.5[facility] Jewish HospitalComment on above:Performed By: #### FLORINA, BMPX #### [facility] [employer] [address] [place] [address] Biological Lab Technician: ANDRE Warelatelets (Bld) [#/Vol]391 10*3/kZWvssvx544-181 [facility] HospitalComment on above:Performed By: #### FLORINA, BMPX #### [address] [address] Biological Lab Technician: LETTY WareBC (Bld) [#/Vol]3.01 10*6/uLLow3.95-5.11[facility] Jewish HospitalComment on above:Performed By: #### FLORINA, BMPX #### [address] [address] Biological Lab Technician: MELY Ware morphology finding Nom (Bld)ANISOCYTOSIS PRESENTNormalMercy Health – The Jewish HospitalComment on above:Performed By: #### FLORINA, BMPX #### [facility] [employer] [address] [place] [address] Biological Lab Technician: AL WareBC (Bld) [#/Vol]12.7 10*3/uLHigh3.5-11.3MCommunity Hospital of San BernardinoComment on above:Performed By: #### FLORINA, BMPX #### [id number] [place] [address] Biological Lab Technician: Luis Solis, MDCT CHEST PULMONARY EMBOLISM W CONTRASTon 77-51-5412SP CHEST PULMONARY EMBOLISM W CONTRASTEXAMINATION: CTA OF THE CHEST 09/28/2022 12:33 am [...] Signed by: Matthew Chong MD 09/28/22 Final resultNormalMerAnaheim General HospitalComp Metabolic Profon 11-83-5389Igbnxqy [Mass/Vol]3.5 g/dLNormal3.5-5.2[facility] CenterComment on above:Performed By: #### FLORINA BMPX #### [place] [address] Biological Lab Technician: Luis Solis MDAlbumin/Glob Ratio0.9Low1.0-2.5Mer[facility] – The Jewish HospitalComment on above:Performed By: #### FLORINA BMPX #### [place] [address] Biological Lab Technician: Luis Solis MDAlkaline Cmza779 U/PZjbioa24-644AinnpMercy Health – The Jewish HospitalComment on above:Performed By: #### FLORINA BMPX #### [facility] [address] [place] [address] Biological Lab Technician: Luis Solis MDALT [Catalytic activity/Vol]7 U/LNormal5-33[facility] The Jewish HospitalComment on above:Performed By: #### FLORINA BMPX #### [facility] [address] [place] [address] Biological Lab Technician: Luis Solis MDAnion gap [Moles/Vol]13 mmol/LNormal9-17[facility] The Jewish HospitalComment on above:Performed By: #### HH, BMPX #### [facility] [address] [place] [address] Biological Lab Technician: Luis Solis MDAST [Catalytic activity/Vol]15 U/LNormal<32[facility] The Jewish HospitalComment on above:Performed By: #### HH, BMPX #### [facility] [address] [place] [address] Biological Lab Technician: Luis Solis MDBilirubin [Mass/Vol]0.5 mg/dLNormal0.3-1.2MCommunity Hospital of San BernardinoComment on above:Performed By: #### FLORINA, BMPX #### [address] [address] Biological Lab Technician: Luis Solis MDCalcium [Mass/Vol]8.5 mg/dLLow8.6-10.4[facility] Jewish HospitalComment on above:Performed By: #### FLORINA, BMPX #### [address] [address] Biological Lab Technician: Luis Solis MDChloride [Moles/Vol]102 mmol/FAwgrgb20-502DjmzwMercy Health – The Jewish HospitalComment on above:Performed By: #### FLORINA, BMPX #### [address] [address] Biological Lab Technician: Luis Solis MDCO2 [Moles/Vol]24 mmol/CGxwqhe61-97BxcblMercy Health – The Jewish HospitalComment on above:Performed By: #### HH, BMPX #### [facility] [address] [place] [address] Biological Lab Technician: Luis Solis MDCreatinine [Mass/Vol]1.62 mg/dLHigh0.50-0.90 [facility] Jewish HospitalComment on above:Performed By: #### HH, BMPX #### [facility] [address] [place] [address] [id number] Biological Lab Technician: Luis Solis MDGFR/1.73 sq M.predicted among non-blacks MDRD (S/P/Bld) [Vol rate/Area]33 mL/min/{1.73_m2}Low>60[facility] Jewish HospitalComment on above:Result Comment: Effective Aug 17, 2022 These results [...] or following therapy that affects renal tubular secretion.Performed By: #### FLORINA BMPX #### [facility] [address] [place] [address] Biological Lab Technician: Luis Solis MDGlucose [Mass/Vol]272 mg/xGExnu88-30UhwltCommunity Hospital of San BernardinoComment on above:Performed By: #### FLORINA BMPX #### [facility] [address] [place] [address] Biological Lab Technician: Luis Solis MDPotassium [Moles/Vol]4.4 mmol/LNormal3.7-5.3 [facility] HospitalComment on above:Performed By: #### FLORINA BMPX #### [facility] [address] [place] [address] Biological Lab Technician: Luis Solis MDProtein [Mass/Vol]7.3 g/dLNormal6.4-8.3MCommunity Hospital of San BernardinoComment on above:Performed By: #### FLORINA, BMPX #### [facility] [address] [place] [address] Biological Lab Technician: Luis Solis MDSodium [Moles/Vol]139 mmol/SPhodyx810-212DaneqMercy Health – The Jewish HospitalComment on above:Performed By: #### FLORINA, BMPX #### [facility] [address] [place] [address] Biological Lab Technician: Barry Ware nitrogen [Mass/Vol]22 mg/dLNormal8-23[facility] Jewish HospitalComment on above:Performed By: #### FLORINA, BMPX #### [facility] [address] [place] [address] Biological Lab Technician: Louise Warectate, Sepsison 83-37-6212Zpyqrr Acid,Sep Wbld 0.6 mmol/LNormal0.5-1.9[facility] Jewish HospitalComment on above: Performed By: #### MONA, BMPX #### [facility] [address] [place] [address] Biological Lab Technician: Luis Solis MDLactic Acid,Sep Wbld1.5 mmol/LNormal0.5-1.9[facility] Jewish HospitalComment on above:Performed By: #### FLORINA, BMPX #### [facility] [address] [place] [address] Biological Lab Technician: Luis Solis MDLegionelui Ag, Uron 69-64-2031Gnpjiycgfc Ag, Ur NegativeNormalNEGMercy Health – The Jewish HospitalComment on above:Result Comment: L. pneumophila serogroup 1 antigen not detected. A negative result does not exclude infection with Leginella pnemophila serogroup 1 nor does it rule out other microbial-caused respiratory infections of disease caused by other serogroups of Legionella pneumophila.Performed By: #### FLORINA, BMPX #### [facility] [address] [place] [address] Biological Lab Technician: Reina Ware 02-46-8709FRH Coag (PPP) [Relative time]1.1 {INR}NormalMercy Health – The Jewish HospitalComment on above:Result Comment: Therapeutic Range: Moderate Anticoagulant Intensity: INR = 2.0-3.0 High Anticoagulant Intensity: INR = 2.5-3.5Performed By: #### FLORINA BMPX #### [facility] [place] [address] Biological Lab Technician: JAROCHO Ware Coag (PPP) [Time]11.8 sNormal9.1-12.3[facility] Grossman Burn CenterComment on above:Performed By: #### FLORINA, BMPX #### [facility] [address] [place] [address] Biological Lab Technician: FLAVIO Ware-CoV-2on 27-37-2537BPLY-CoV-2 (COVID-19) RNA SIRI+probe Ql (Unsp spec)Not detectedNormalNOTDESelect Medical Specialty Hospital - Boardman, IncComment on above:Result Comment: Rapid NAAT: The specimen is NEGATIVE [...] management decisions. Fact sheet for Healthcare Providers: https://www.fda.gov/media/335694/download Fact sheet for Patients: https://www.fda.gov/media/558975/download Methodology: Isothermal Nucleic Acid AmplificationPerformed By: #### WILSON DUNNX #### [facility] [place] [address] Biological Lab Technician: Tristan Wareimentation Rateon 73-11-4155Jolcqzspmajjz Rate61 mm/HrHigh0-30[facility] Burn CenterComment on above:Performed By: #### WILSON DUNNX #### [facility] [address] [place] [address] [id number] Biological Lab Technician: Jose Ware pneum Ag,CSF/Uron 12-93-3722Uckym pneum Ag NegativeNoSelect Medical Specialty Hospital - Boardman, IncComment on above:Result Comment: Strep pneumoniae antigen not detectedPerformed By: #### MONA, BMPX #### [facility] [address] [place], [place] [phone] Biological Lab Technician: Jose Ware pneu Ag Source.URINENormSumma Health Akron CampusComment on above:Performed By: #### MONA BMPX #### [facility] [address] [place] [address] Biological Lab Technician: Modesta Warenisaloni 71-41-0065Hdufxqxq, High Rosq764 ng/L Critically high0-[facility] HospitalComment on above:Result Comment: High Sensitivity Troponin values cannot be compared with other Troponin methodologies. Patients with high levels of Biotin oral intake (i.e >5mg/day) may have falsely decreased Troponin levels. Samples collected within 8 hours of biotin intake may require additional information for diagnosis.Performed By: #### MONA BMPX #### [facility] [address] [place] [address] Biological Lab Technician: Chloe Ware, High Ivaf305 ng/LCritically high [facility] HospitalComment on above:Result Comment: High Sensitivity Troponin values cannot be compared with other Troponin methodologies. Patients with high levels of Biotin oral intake (i.e >5mg/day) may have falsely decreased Troponin levels. Samples collected within 8 hours of biotin intake may require additional information for diagnosis.Performed By: #### FLORINA, BMPX #### [facility] [address] [place] [address] [id number] Biological Lab Technician: Luis Solis MDType + Screenon 29-18-4168Rwnm + ScreenSample Expiration 10/01/2022,2359 Arm Band Number BE [id number] ABO/Rh(D) O NEGATIVE Antibody Screen NEGATIVENormalMerAnaheim General HospitalComment on above: Performed By: #### FLORINA, BMPX #### [facility] [address] [place] [address] Biological Lab Technician: Luis Solis MDUrinalysis w/ Microon 93-04-0099WqwvldnfMHFU AbnormalNONEMercy Sherman [facility]aks Hospital And The Grossman Burn CenterComment on above:Performed By: #### FLORINA, BMPX #### [facility] [address] [place] [address] Biological Lab Technician: Mary Wareirubin, SemiQt,UrNegativeNormalNEGMercy Health – The Jewish HospitalComment on above:Performed By: #### FLORINA, BMPX #### [facility] [address] [place] [address] Biological Lab Technician: Chichi Ware, UrineNegativeNormalNEGMercy Health – The Jewish HospitalComment on above:Performed By: #### FLORINA, BMPX #### [facility] [address] [place] [address] Biological Lab Technician: LANG Wareasts0 TO 2 HYALINENormal0-8[facility] HospitalComment on above:Result Comment: Reference range defined for non- centrifuged specimen.Performed By: #### FLORINA, BMPX #### [facility] [address] [place] [address] Biological Lab Technician: LANG Warelarity (U)CloudyAbnormalCLEARMercy Sherman Oaks Hospital And The Grossman Burn CenterComment on above:Performed By: #### FLORINA, BMPX #### [facility] [address] [place] [address] Biological Lab Technician: LANG Wareolor (U)YellowNormalYELMerAnaheim General HospitalComment on above:Performed By: #### FLORINA, BMPX #### [facility] [address] [place] [address] Biological Lab Technician: Luis Solis MDEpithelial cells LM Ql (Urine sed)5 TO 10Normal 0-5[facility] HospitalComment on above:Performed By: #### FLORINA, BMPX #### [facility] [address] [place] [address] Biological Lab Technician: Luis Solis MDGlucose Ql (U)2+AbnormalNEGMercy Health – The Jewish HospitalComment on above:Performed By: #### FLORINA, BMPX #### [facility] [address] [place] [address] Biological Lab Technician: Luis Solis MDKetones Ql (U)TRACEAbnormalNEGMercy Health – The Jewish HospitalComment on above:Performed By: #### FLORINA, BMPX #### [address] [address] Biological Lab Technician: Luis Solis MDLeukocyte esterase Test strip Ql (U)TRACE AbnormalNEGMercy Health – The Jewish HospitalComment on above:Performed By: #### FLORINA, BMPX #### [address] [address] Biological Lab Technician: Luis Solis MDNitrite,UrNegativeNormalNEGMercy Health – The Jewish HospitalComment on above:Performed By: #### FLORINA, BMPX #### [facility] [address] [place] [address] Biological Lab Technician: ANDRE Ware,Ur5.7Tfkkrb8.0-8.0[facility] HospitalComment on above:Performed By: #### FLORINA, BMPX #### [facility] [address] [place] [address] Biological Lab Technician: ANDRE Warerotein Ql (U)TRACEAbnormalNEGMercy Health – The Jewish HospitalComment on above:Performed By: #### FLORINA, BMPX #### [facility] [address] [place] [address] Biological Lab Technician: JOHNATHAN Warepec. [place],Ur1.747Pimfoo8.005-1.030[facility] HospitalComment on above:Performed By: #### HH, BMPX #### [facility] [address] [place] [address] Biological Lab Technician: Lexi Ware RBC's0 TO 6Plefxo1-0DnuujMercy Health – The Jewish HospitalComment on above:Result Comment: Reference range defined for non- centrifuged specimen.Performed By: #### HH, BMPX #### [facility] [address] [place] [address] Biological Lab Technician: Lexi Ware WBC's10 TO 29Wrrgir7-3OykbqMercy Health – The Jewish HospitalComment on above:Performed By: #### FLORINA, BMPX #### [facility] [address] [place] [address] Biological Lab Technician: Luis Solis MDUrobilinogen,UrNormalNormalNORMMercy Health – The Jewish HospitalComment on above:Performed By: #### FLORINA, BMPX #### [facility] [address] [place] [address] Biological Lab Technician: DAKOTA Ware CHEST PORTABLEon [id number] CHEST PORTABLE EXAMINATION: ONE XRAY VIEW OF [...] Signed by: Garth Herr MD 09/28/22 Final resultNoSelect Medical Specialty Hospital [facility], IncCT BRAIN WO CONTRASTon [id number] BRAIN WO CONTRASTUnSelect Medical [facility] Department of Radiology [address] [place] [address] Patient Name: CUCA DEE : 1945 Sex: F Age: Race: White Pt. 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 Electronically signed: Berry Wyman. Transcribed by: [email or web address], User Resident: Electronically Signed by: BERRY WYMAN @ 03/31/2022 03:46 PMNormalThe Togus VA Medical CenterComment on above:Order Comment: hydrocephalus s/p vp marketing services and skin shuntVP SHUNT SERIESon [id number] SHUNT SERIESUnSelect Medical [facility] Department of Radiology [address] [place] [id number] Patient Name: CUCA DEE : 1945 [...] , Ordering Provider - A DIANE MSN SEWER CONNECTOR , Exam: NON DESTRUCTIVE TESTER SHUNT SERIES NON DESTRUCTIVE TESTER SHUNT SERIES HISTORY: Shunt evaluation. COMPARISON: [...] described. Electronically signed: Lam Ray. Transcribed by: [email or web address], User Resident: Electronically Signed by: LAM RAY @ 04/03/2022 08:50 AMNormalUniversity Hospitals TriPoint Medical CenterComment on above:Order Comment: , .Ang.brEr/o kinking or discontinuity of shunt tubing and do image perpendicularl to valve to check OP , .brr/o kinking or discontinuity of shunt tubing and do image perpendicularl to valve to check OP , , , Ordering Provider - Danielle RAWLS SEWER CONNECTOR , Lipid Profileon 41-36-5708Yqoysugpezq [Mass/Vol]117 mg/dLNormal<200 [facility] HospitalComment on above:Result Comment: Cholesterol Guidelines: <200 Desirable 200-240 Borderline >240 UndesirablePerformed By: #### LIPR #### [facility] [place] [address] Biological Lab Technician: LANG Wareholesterol in HDL [Mass/Vol]39 mg/dLLow>40[facility] HospitalComment on above:Result Comment: HDL Guidelines: <40 Undesirable 40-59 Borderline >59 DesirablePerformed By: #### LIPR #### [facility] [address] [place] [address] Biological Lab Technician: LANG Wareholesterol in LDL [Mass/Vol]62 mg/dLNormal0-130 [facility] HospitalComment on above:Result Comment: LDL Guidelines: <100 Desirable 100-129 Near to/above Desirable 130-159 Borderline >159 Undesirable Direct (measured) LDL and calculated LDL are not interchangeable tests.Performed By: #### LIPR #### [address] [address] Biological Lab Technician: Rafa Ware.total/Cholesterol in HDL [Mass ratio]3.0 {ratio}Normal<5[facility] HospitalComment on above:Performed By: #### LIPR #### [address] [address] Biological Lab Technician: Luis Solis MDTriglyceride [Mass/Vol]79 mg/dLNormal<150MerKettering Health Miamisburg HospitalComment on above:Result Comment: Triglyceride Guidelines: <150 Desirable 150-199 Borderline 200-499 High >499 Very high Based on AHA Guidelines for fasting triglyceride, August 2012.Performed By: #### LIPR #### [address] [address] Biological Lab Technician: LANG Wareholesterol,VLDLNOT REPORTEDNormal1-30MerKettering Health Miamisburg HospitalComment on above:Performed By: #### LIPR #### [address] [address] Biological Lab Technician: Luis Solis MDUric Acidon 41-70-9947Trytp [Mass/Vol]6.8 mg/dL High2.4-5.7[facility] HospitalComment on above:Performed By: #### URI #### [facility] [address] [place] [address] [place] [address] Biological Lab Technician: Giovanny Carpenter MDUric AcidOrdered By: Lakeshia Farias on 03-24-2021 Interpretation and review of laboratory resultsAbnormalNewark Hospital Health Work Phone: Urate [Mass/Vol]6.8 mg/dLHigh2.4 - 5.7 mg/dLLancaster Municipal Hospital Work Phone: cBC AUTO DIFFon [id number] #0.0 103/ulNormal 0.0-0.1[facility] Hospital DaytonComment on above:Performed By: #### CBC #### [facility] [address] [id number] Ghulam KarenBasophils/100 WBC (Bld)0.4 %Normal0.2-2.0[facility] Comment on above:Performed By: #### CBC #### [facility] [address] [place] [address] Ghulam KarenEO #0.4 103/ulNormal0.0-0.7The [facility] HospitalComment on above: Performed By: #### CBC #### [facility] [address] [place] [address] Ghulam KarenEosinophils/100 WBC (Bld)4.3 %Normal0.9-7.0[facility] Comment on above:Performed By: #### CBC #### [facility] [address] [place] [address] Ghulam KarenErythrocyte distribution width (RBC) [Ratio]15.9 %Critically high 11.0-15.0The [facility] HospitalComment on above:Performed By: #### CBC #### [facility] [address] [place] [address] Ghulam KarenHematocrit (Bld) [Volume fraction]28.5 %Critically low36.0-48.0The [facility] HospitalComment on above:Performed By: #### CBC #### [facility] [address] [place] [address] Ghulam KarenHemoglobin (Bld) [Mass/Vol]8.9 g/dLCritically low12.0-16.0The [facility] HospitalComment on above:Performed By: #### CBC #### [facility] [address] [place] [address] Ghulam KarenIG #0.04 10e3/ulCritically high0.00-0.03The [facility] HospitalComment on above:Performed By: #### CBC #### [facility] [address] [place] [address] Guhlam KarenIG %0.4 %Normal0.0-0.5The [facility] HospitalComment on above: Performed By: #### CBC #### [facility] [address] [address] Ghulam KarenLYMPH #2.2 103/ulNormal1.2-3.8The [facility] HospitalComment on above: Performed By: #### CBC #### [facility] [address] [address] Ghulam KarenLymphocytes/100 WBC (Bld)21.9 %Bqwdoy16.5-60.0[facility] Comment on above:Performed By: #### CBC #### [facility] [address] [place] [address] Ghulam KarenMANUAL DIFF REQNONormalThe [facility] HospitalComment on above: Performed By: #### CBC #### [facility] [address] [place] [address] Ghulam KarenMCH (RBC) [Entitic mass]27.1 yrFmeekq95.7-34.0[facility] Comment on above:Performed By: #### CBC #### [facility] [address] [place] [address] Ghulam KarenMCHC (RBC) [Mass/Vol]31.2 g/pOVkeaeu83.9-35.2[facility] Comment on above:Performed By: #### CBC #### [facility] [address] [place] [address] Ghulam KarenMCV (RBC) [Entitic vol]86.9 xNXxzavo12.0-99.0[facility] Comment on above:Performed By: #### CBC #### [facility] [address] [place] [address] Ghulam KarenMONO #1.0 103/ulCritically high0.3-0.8The [facility] HospitalComment on above:Performed By: #### CBC #### [facility] [address] [place] [address] Ghulam KarenMonocytes/100 WBC (Bld)10.1 %Normal1.7-12.0[facility] Comment on above:Performed By: #### CBC #### [facility] [address] [place] [address] Ghulam SotoenNEUT #6.2 103/ulNormal1.4-6.5The [facility] HospitalComment on above: Performed By: #### CBC #### [facility] [address] [place] [address] Ghulam SotoenNeutrophils/100 WBC (Bld)62.9 %Cxtkzy66.0-75.0[facility] Comment on above:Performed By: #### CBC #### [facility] [address] [place] [address] Ghulam KarenPlatelet mean volume (Bld) [Entitic vol]10.2 fLNormal9.5-13.5The [facility] HospitalComment on above:Performed By: #### CBC #### [facility] [address] [place] [address] Ghulam VryhlWMV791 103/dvOeuikg412-063Glv [facility] HospitalComment on above: Performed By: #### CBC #### [facility] [address] [place] [address] Ghulam KarenRBC3.28 106/ulCritically low4.20-5.40The [facility] HospitalComment on above:Performed By: #### CBC #### [facility] [address] [place] [address] Ghulam KarenWBC9.9 103/ulNormal4.0-11.0The [facility] HospitalComment on above: Performed By: #### CBC #### [facility] [address] [place] [address] Ghulam KarenPROF 14(COMP METB)on 82-32-6009Hlblcmo [Mass/Vol]2.8 g/dLCritically low3.5-5.0The [facility] HospitalComment on above:Performed By: #### CMP #### [facility] [address] [place] [address] Ghulam KarenAlbumin/Globulin [Mass ratio]0.6 {ratio}NormalThe [facility] Comment on above:Performed By: #### CMP #### [facility] [address] [address] Ghulam KarenALP [Catalytic activity/Vol]95 U/JOblouw54-388Ctb [facility] Comment on above:Performed By: #### CMP #### [facility] [address] [address] Ghulam KarenALT [Catalytic activity/Vol]16 U/LNormal9-52[facility] Comment on above:Performed By: #### CMP #### [facility] [address] [address] Ghulam KarenAnion gap [Moles/Vol]11.6 mmol/LNormalKindred Hospital DaytonComment on above:Performed By: #### CMP #### [facility] [address] [address] Ghulam KarenAST [Catalytic activity/Vol]13 U/LCritically xvj92-45AeuKindred Hospital DaytonComment on above:Performed By: #### CMP #### [facility] [address] [address] Ghulam KarenBilirubin [Mass/Vol]0.4 mg/dLNormal0.2-1.3TBethesda North Hospital Comment on above:Performed By: #### CMP #### [facility] [address] [place] [address] Ghulam KarenCalcium [Mass/Vol]8.9 mg/dLNormal8.4-10.2[facility] Comment on above:Performed By: #### CMP #### [facility] [address] [place] [address] Ghulam KarenChloride [Moles/Vol]103 mmol/DPcszyw95-418Dcw [facility] Comment on above:Performed By: #### CMP #### [facility] [address] [place] [address] Ghulam KarenCO2 [Moles/Vol]27.4 mmol/GOjxxyp74.0-30.0[facility] Comment on above:Performed By: #### CMP #### [facility] [address] [place] [address] Ghulam KarenCreatinine [Mass/Vol]1.86 mg/dLCritically high0.52-1.04[facility] DaytonComment on above:Performed By: #### CMP #### [facility] [address] [address] Ghulam KarenEGFR-AF DUEQILAA29 mL/min/1.23r6Kvcetatldc low>=60The [facility] HospitalComment on above:Performed By: #### CMP #### [facility] [address] [address] Ghulam KarenEGFR-NON AF MBXGYATQ35 mL/min/1.07c6Roizrbevyj low>=60The [facility] HospitalComment on above:Performed By: #### CMP #### [facility] [address] [place] [address] Ghulam KarenGlobulin (S) [Mass/Vol]4.6 g/dLNormalThe [facility] HospitalComment on above:Performed By: #### CMP #### [facility] [address] [place] [address] Ghulam KarenGlucose [Mass/Vol]174 mg/dLCritically apfh55-435Jbx [facility] HospitalComment on above:Performed By: #### CMP #### [facility] [address] [place] [address] Ghulam KarenPotassium [Moles/Vol]4.0 mmol/LNormal3.4-5.0[facility] Comment on above:Performed By: #### CMP #### [facility] [address] [place] [address] Ghulam KarenProtein [Mass/Vol]7.4 g/dLNormal6.1-8.2Kindred Hospital DaytonComment on above:Performed By: #### CMP #### [facility] [address] [place] [address] Ghulam KarenSodium [Moles/Vol]138 mmol/STlwqrs396-403[facility] Comment on above:Performed By: #### CMP #### [facility] [address] [place] [address] Ghulam KarenUrea nitrogen [Mass/Vol]24.0 mg/dLCritically high7.0-17.0[facility] DaytonComment on above:Performed By: #### CMP #### [facility] [address] [place] [address] Ghulam KarenUrea nitrogen/Creatinine [Mass ratio]12.9 mg/mgNormalThe Lutheran HospitalComment on above:Performed By: #### CMP #### [facility] [address] [place] [address] Ghulam KarenRESPIRATORY PANEL PLUSon [id number] detectedNormalNOT DETECTEDThe Lutheran HospitalComment on above:Performed By: #### RSPLUS #### [facility] [address] [place] [address] Ghulam KarenB. ParapertusisNot detectedNormalNOT DETECTEDKind[facility] Hospital [facility] Comment on above:Performed By: #### RSPLUS #### [facility] [address] [place] [address] Ghulam KarenB. PertussisNot detectedNormalNOT DETECTEDKind[facility] Comment on above:Performed By: #### RSPLUS #### [facility] [address] [place] [address] Ghulam KarenChlamydia PneumoniaeNot detectedNormalNOT DETECTEDKindred Hospital DaytonComment on above:Performed By: #### RSPLUS #### [facility] [address] [place] [address] Ghulam KarenCoronavirus 229ENot detectedNormalNOT DETECTEDThe [facility] Comment on above:Performed By: #### RSPLUS #### [facility] [address] [place] [address] Ghulam KarenCoronavirus JJG3Uzj detectedNormalNOT DETECTED[facility] Comment on above:Performed By: #### RSPLUS #### [facility] [address] [place] [address] Ghulam KarenCoronavirus LI97Wiq detectedNormalNOT DETECTEDKind[facility] Comment on above:Performed By: #### RSPLUS #### [facility] [address] [place] [address] Ghulam KarenCoronavirus PV75Lok detectedNormalNOT DETECTEDThe [facility] Comment on above:Performed By: #### RSPLUS #### [facility] [address] [address] Ghulam KarenInfluenza A H1 2009Not detectedNormalNOT DETECTEDThe [facility] HospitalComment on above:Performed By: #### RSPLUS #### [facility] [address] [address] Ghulam KarenInfluenza BNot detectedNormalNOT DETECTEDThe [facility] Comment on above:Performed By: #### RSPLUS #### [facility] [address] [address] Ghulam KarenMetapneumovirusNot detectedNormalNOT DETECTED[facility] Comment on above:Performed By: #### RSPLUS #### [facility] [address] [address] Ghulam KarenMycoplas. PneumoniaeNot detectedNormalNOT DETECTEDThe [facility] HospitalComment on above:Performed By: #### RSPLUS #### [facility] [address] [address] Ghulam KarenParainfluenza 1Not detectedNormalNOT DETECTED[facility] Comment on above:Performed By: #### RSPLUS #### [facility] [address] [address] Ghulam KarenParainfluenza 2Not detectedNormalNOT DETECTEDThe [facility] Comment on above:Performed By: #### RSPLUS #### [facility] [address] [address] Ghulam KarenParainfluenza 3Not detectedNormalNOT DETECTEDThe [facility] Comment on above:Performed By: #### RSPLUS #### [facility] [address] [address] Ghulam KarenParainfluenza 4Not detectedNormalNOT DETECTEDThe [facility] Comment on above:Performed By: #### RSPLUS #### [facility] [address] [address] Ghulam KarenRhino/EnterovirusNot detectedNormalNOT DETECTEDKind[facility] Comment on above:Performed By: #### RSPLUS #### [facility] [address] [place] [address] KarenRP2 Header 1RESPIRATORY PANEL: [facility]ESMer[facility] Comment on above:Performed By: #### RSPLUS #### [facility] [address] [place] [address] CharlesRP2 Header 2RESPIRATORY PANEL: BACTERIAMercy [facility] Comment on above:Performed By: #### RSPLUS #### [facility] [address] [place] [address] CharlesenRP2 Header 4 EUASEE BELOWMercy Health – The Jewish HospitalComment on above:Result Comment: This test is not yet approved or cleared by the [place] FDA. When there are no FDA-approved or cleared tests available, and other criteria are met, FDA can make tests available under an emergency access mechanism called an Emergency Use Authorization (EUA). The EUA for this test is supported by the Aquaculturist of Health and Human Service?s (HHS?s) declaration [...] which the test may no longer be used).Performed By: #### RSPLUS #### [facility] [address] [place] [address] Ghulam ReyesRSVNot detectedNormalNOT DETECTEDThe [facility] HospitalComment on above:Performed By: #### RSPLUS #### [facility] [address] [place] [address] Ghulam TrujilloPxmyfKTHC-KlD-8 (COVID-19) RNA SIRI+probe Ql (Unsp spec)Not detectedNormal NOT DETECTEDThe [facility] HospitalComment on above:Performed By: #### RSPLUS #### [facility] [address] [place] [address] Ghulam KarenURIC ACID SERUMon 09-06-2483Ahixp [Mass/Vol]7.4 mg/dLCritically high 2.5-6.2The [facility] HospitalComment on above:Performed By: #### URIC #### [facility] [address] [place] [address] Ghulam KarenCBC AUTO DIFFon [id number] #0.0 103/ulNormal0.0-0.1The [facility] HospitalComment on above:Performed By: #### CBC #### [facility] [address] [place] [address] Ghulam KarenBasophils/100 WBC (Bld)0.3 %Normal0.2-2.0[facility] Comment on above:Performed By: #### CBC #### [facility] [address] [place] [address] Ghulam KarenEO #0.1 103/ulNormal0.0-0.7The [facility] HospitalComment on above: Performed By: #### CBC #### [facility] [address] [place] [address] Ghulam KarenEosinophils/100 WBC (Bld)0.9 %Normal0.9-7.0[facility] Comment on above:Performed By: #### CBC #### [facility] [address] [place] [address] Ghulam KarenErythrocyte distribution width (RBC) [Ratio]15.5 %Critically high 11.0-15.0The [facility] HospitalComment on above:Performed By: #### CBC #### [facility] [address] [place] [address] Ghulam KarenHematocrit (Bld) [Volume fraction]28.1 %Critically low36.0-48.0The [facility] HospitalComment on above:Performed By: #### CBC #### [facility] [address] [place] [address] Ghulam KarenHemoglobin (Bld) [Mass/Vol]8.9 g/dLCritically low12.0-16.0The [facility] HospitalComment on above:Performed By: #### CBC #### [facility] [address] [address] Ghulam SotoenIG #0.05 10e3/ulCritically high0.00-0.03The [facility] HospitalComment on above:Performed By: #### CBC #### [facility] [address] [address] Ghulamgabriela SotoenIG %0.5 %Normal0.0-0.5The [facility] HospitalComment on above: Performed By: #### CBC #### [facility] [address] [place] [address] Ghulam KarenLYMPH #1.9 103/ulNormal1.2-3.8The [facility] HospitalComment on above: Performed By: #### CBC #### [facility] [address] [place] [address] Ghulam KarenLymphocytes/100 WBC (Bld)17.2 %Critically low20.5-60.0The [facility] HospitalComment on above:Performed By: #### CBC #### [facility] [address] [place] [address] Ghulam KarenMANUAL DIFF REQNONormalThe Lutheran HospitalComment on above: Performed By: #### CBC #### [facility] [address] [place] [address] Ghulam KarenMCH (RBC) [Entitic mass]27.1 xzWucwqi15.7-34.0[facility] Comment on above:Performed By: #### CBC #### [facility] [address] [place] [address] Ghulam KarenMCHC (RBC) [Mass/Vol]31.7 g/zRKtpvrf59.9-35.2[facility] Comment on above:Performed By: #### CBC #### [facility] [address] [place] [address] Ghulam KarenMCV (RBC) [Entitic vol]85.4 wAOemcus40.0-99.0[facility] Comment on above:Performed By: #### CBC #### [facility] [address] [address] Ghulam KarenMONO #1.0 103/ulCritically high0.3-0.8The [facility] HospitalComment on above:Performed By: #### CBC #### [facility] [address] [address] Ghulam KarenMonocytes/100 WBC (Bld)9.5 %Normal1.7-12.0[facility] Comment on above:Performed By: #### CBC #### [facility] [address] [place] [address] Ghulam KarenNEUT #7.7 103/ulCritically high1.4-6.5The [facility] HospitalComment on above:Performed By: #### CBC #### [facility] [address] [place] [address] Ghulam KarenNeutrophils/100 WBC (Bld)71.6 %Gwbhga98.0-75.0[facility] Comment on above:Performed By: #### CBC #### [facility] [address] [place] [address] Ghulam KarenPlatelet mean volume (Bld) [Entitic vol]10.1 fLNormal9.5-13.5The [facility] HospitalComment on above:Performed By: #### CBC #### [facility] [address] [place] [address] Ghulam IxdxoZGL279 103/ahNzbawr547-482Aps Luther[facility] HospitalComment on above: Performed By: #### CBC #### [facility] [address] [place] [address] Ghulam KarenRBC3.29 106/ulCritically low4.20-5.40The [facility] HospitalComment on above:Performed By: #### CBC #### [facility] [address] [place] [address] Ghulam CyvnvIGL57.7 103/ulNormal4.0-11.0The [facility] HospitalComment on above: Performed By: #### CBC #### [facility] [address] [address] Ghulam KarenMAGNESIUMon 55-07-7242Bdasisigt [Mass/Vol]1.9 mg/dLNormal1.6-2.3The [facility] HospitalComment on above:Performed By: #### MG ####[facility] [address] [address]Gerken KarenPOINT OF CARE GLUCOSEon 63-24-4226Ajsgqsr [Mass/Vol]68 mg/dLCritically ktj26-145PxmKindred Hospital DaytonComment on above:Performed By: #### POCGLUC #### [facility] [address] [address] Ghulam KarenGlucose [Mass/Vol]91 mg/gPPmrhqo48-393YjhKindred Hospital DaytonComment on above:Performed By: #### POCGLUC #### [facility] [address] [address] Ghulam KarenGlucose [Mass/Vol]136 mg/dLCritically mpvp63-771NuyKindred Hospital DaytonComment on above:Performed By: #### POCGLUC #### [facility] [address] [address] Ghulam KarenPROF 14(COMP METB)on 69-18-5589Kemwmow [Mass/Vol]2.7 g/dLCritically low3.5-5.0[facility] DaytonComment on above:Performed By: #### CMP #### [facility] [address] [address] Ghulam KarenAlbumin/Globulin [Mass ratio]0.6 {ratio}NormalKindred Hospital Dayton Comment on above:Performed By: #### CMP #### [facility] [address] [address] Ghulam KarenALP [Catalytic activity/Vol]99 U/HFkuezg15-355DoeKindred Hospital Dayton Comment on above:Performed By: #### CMP #### [facility] [address] [place] [address] Ghulam KarenALT [Catalytic activity/Vol]14 U/LNormal9-52[facility] Comment on above:Performed By: #### CMP #### [facility] [address] [id number] Ghulam KarenAnion gap [Moles/Vol]10.5 mmol/LNormalThe [facility] HospitalComment on above:Performed By: #### CMP #### [facility] [address] [address] Ghulam KarenAST [Catalytic activity/Vol]13 U/LCritically aju83-74Kpc [facility] HospitalComment on above:Performed By: #### CMP #### [facility] [address] [address] Ghulam KarenBilirubin [Mass/Vol]0.5 mg/dLNormal0.2-1.3[facility] Comment on above:Performed By: #### CMP #### [facility] [address] [place] [address] Ghulam KarenCalcium [Mass/Vol]9.1 mg/dLNormal8.4-10.2[facility] Comment on above:Performed By: #### CMP #### [facility] [address] [address] Ghulam KarenChloride [Moles/Vol]104 mmol/HGvpnjd13-229LvzKindred Hospital Dayton Comment on above:Performed By: #### CMP #### [facility] [address] [address] Ghulam KarenCO2 [Moles/Vol]27.2 mmol/YGubwdv80.0-30.0[facility] Comment on above:Performed By: #### CMP #### [facility] [address] [address] Ghulam KarenCreatinine [Mass/Vol]1.57 mg/dLCritically high0.52-1.04The [facility] HospitalComment on above:Performed By: #### CMP #### [facility] [address] [id number] Ghulam KarenEGFR-AF ZWAXYBFY04 mL/min/1.01o4Vqiqjvnpxe low>=60The [facility] HospitalComment on above:Performed By: #### CMP #### [facility] [address] [address] Ghulam KarenEGFR-NON AF DOWLWQBW12 mL/min/1.73y9Aftcgrihvj low>=60The [facility] HospitalComment on above:Performed By: #### CMP #### [facility] [address] [address] Ghualm KarenGlobulin (S) [Mass/Vol]4.6 g/dLNoMarietta Memorial HospitalComment on above:Performed By: #### CMP #### [facility] [address] [address] Ghulam KarenGlucose [Mass/Vol]209 mg/dLCritically rwpi17-403Ine [facility] HospitalComment on above:Performed By: #### CMP #### [facility] [address] [address] Ghulam KarenPotassium [Moles/Vol]3.7 mmol/LNormal3.4-5.0[facility] Comment on above:Performed By: #### CMP #### [facility] [address] [address] Ghulam KarenProtein [Mass/Vol]7.3 g/dLNormal6.1-8.2The [facility] HospitalComment on above:Performed By: #### CMP #### [facility] [address] [address] Ghulam KarenSodium [Moles/Vol]138 mmol/LSqndvp279-417Qjs [facility] Comment on above:Performed By: #### CMP #### [facility] [address] [address] Ghulam KarenUrea nitrogen [Mass/Vol]28.0 mg/dLCritically high7.0-17.0The [facility] HospitalComment on above:Performed By: #### CMP #### [facility] [address] [address] Ghulam KarenUrea nitrogen/Creatinine [Mass ratio]17.8 mg/mgNoMarietta Memorial HospitalComment on above:Performed By: #### CMP #### [facility] [address] [id number] Ghulam Reyes Vital Signs Date TimeVital SignValuePerforming HhnrfsdkzZitkmexv55-82-9811 15:40-0400Body mass index (BMI) [Ratio]24.65 kg/f0Brdyne Furlong DO Work Phone: N(i)²10-22-2025 15:40-0400Body foyokhjfyrv21.1 [degF]Sacha Furlong DO Work Phone: [facility]10-22-2025 15:40-0400Body .18 kgDennis Furlong DO Work Phone: [facility]10-22-2025 15:40-0400Diastolic blood mbbyimmm85 mm[Hg]Sacha Jaylong DO Work Phone: [facility]10-22-2025 15:40-0400Heart rate 78 /minDscarlettis Furlong DO Work Phone: [facility]10-22-2025 15:40-0400 Respiratory rate18 /minDennis Furlong DO Work Phone: [facility]10-22-2025 15:40-2423PlY7% (BldA) [Mass fraction]93 %Sachagregory Thompsonlong DO Work Phone: [facility]10-22-2025 15:40-0400Systolic blood nvtzpdec396 mm[Hg]Sachagregory Thompsonlong DO Work Phone: [facility]10-08-2025 10:07-0400Body ecsngg546.1 cmRa Marinelli MD Work Phone: [facility]10-08-2025 10:07-0400Body mass index (BMI) [Ratio]28.54 kg/y9KcnxrdgRa Marinelli MD Work Phone: N(i)²10-08-2025 10:07-0400Body oqhvthbtycy75.81 [degF]Ra Marinelli MD Work Phone: [facility]10-08-2025 10:07-0400Body .8 kgRa Marinelli MD Work Phone: [facility] Aqqfqv35-29-8581 15:52-0400Body mass index (BMI) [Ratio]28.32 kg/h8Czqlvh Furlong DO Work Phone: [facility]09-30-2025 15:52-0400Body gtribyzfevl63.4 [degF]Sachagregory Thompsonlong DO Work Phone: [facility]09-30-2025 15:52-0400Body giauyq77.2 kgDennis Jaylong DO Work Phone: [facility] Blfzow30-09-7238 15:52-0400Diastolic blood jrwieihk45 mm[Hg]Sachagregory Thompsonlong DO Work Phone: [facility]09-30-2025 15:52-0400Heart rate 75 /minDscarlettis Jaylong DO Work Phone: [facility]09-30-2025 15:52-0400 Respiratory rate20 /minDscarlettis Jaylong DO Work Phone: [facility]Star[facility] Hypcbd91-58-7609 15:52-9414HeF0% (BldA) [Mass fraction]96 %Sacha Thompsonlong DO Work Phone: [facility] Dayton[facility]09-30-2025 15:52-0400Systolic blood udrtirqu656 mm[Hg]Sacha Thompsonlong DO Work Phone: [facility]09-26-2025 21:07-0400Body mass index (BMI) [Ratio]28.56 kg/i3Mxrhzy Jaylong DO Work Phone: [facility] Cacrvk28-82-4013 21:07-0400Body zsfpgxoqsaw66.8 [degF]Sacha Jaylong DO Work Phone: [employer] Umghch99-96-1563 21:07-0400Body sycofi08.84 kgDengregory Thompsonlong DO Work Phone: [facility] Hnotuf71-98-1471 21:07-0400Diastolic blood debosenp46 mm[Hg]Sacha Furlong DO Work Phone: [facility] Nrcqtr41-89-6074 21:07-0400Heart rate 95 /minDscarlettis Furlong DO Work Phone: [facility] Tpuqio12-86-2017 21:07-0400 Respiratory rate20 /minDennis Furlong DO Work Phone: [facility] Dtjtim53-42-3243 21:07-9132HkH3% (BldA) [Mass fraction]96 %Sacha Thompsonlong DO Work Phone: [facility] Niqzvs50-48-8102 21:07-0400Systolic blood nsuhqmss460 mm[Hg]Sacha Thompsonlong DO Work Phone: [facility] Yhcyjc69-80-0394 15:04-0400Body mass index (BMI) [Ratio]29.77 kg/j0Cgpyyy Furlong DO Work Phone: [facility] Smyaug04-39-1217 15:04-0400Body dtvizpbttiv42.71 [degF]Sacha Thompsonlong DO Work Phone: [facility] Kminoa47-18-7790 15:04-0400Body ilntjw48.15 kgDengregory Thompsonlong DO Work Phone: [facility] Lebojs62-47-9408 15:04-0400Diastolic blood ockxeldc08 mm[Hg]Sacha Thompsonlong DO Work Phone: [facility] Usmggg11-69-0394 15:04-0400Heart rate 81 /minDennis Furlong DO Work Phone: [facility] Mdsnvj05-51-6999 15:04-0400 Respiratory rate20 /minDennis Jaylong DO Work Phone: [facility]09-24-2025 15:04-2622CcG5% (BldA) [Mass fraction]92 %Sacha Brownng DO Work Phone: [facility]09-24-2025 15:04-0400Systolic blood gtmlrmiw082 mm[Hg]Sacha Thompsonlong DO Work Phone: [phone] Dayton[facility]09-19-2025 23:23-0400Body mass index (BMI) [Ratio]28.26 kg/d2Zesemd Furlong DO Work Phone: [phone]09-19-2025 23:23-0400Body byvdzhleksv45.2 [degF]Sacha Brownng DO Work Phone: [facility]09-19-2025 23:23-0400Body ttyycl22.02 kgSacha Brownng DO Work Phone: [facility]09-19-2025 23:23-0400Diastolic blood pojlpgfs41 mm[Hg]Sacha Brownng DO Work Phone: [facility]09-19-2025 23:23-0400Heart rate 80 /Madysonis Jaylong DO Work Phone: [facility]09-19-2025 23:23-0400 Respiratory rate19 /minDscarlettis Kevinng DO Work Phone: [facility]09-19-2025 23:23-4755TbG1% (BldA) [Mass fraction]93 %Sacha Brownng DO Work Phone: [facility]09-19-2025 23:23-0400Systolic blood oyqantkv539 mm[Hg]Sacha Brownng DO Work Phone: [facility]09-09-2025 23:15-0400Body mass index (BMI) [Ratio]30.82 kg/l7Nzxhwn Furlong DO Work Phone: [facility] Jepcxo63-27-7484 23:15-0400Body nochrbtdabh96.3 [degF]Sacha Thompsonlong DO Work Phone: [facility] Kpqvre22-79-3973 23:15-0400Body cyrqzr30.01 kgDennis Jaylong DO Work Phone: [facility] Mprurp85-69-0698 23:15-0400Diastolic blood aeftgnpp71 mm[Hg]Sacha Thompsonlong DO Work Phone: [facility] Zcylko94-26-8700 23:15-0400Heart rate 78 /Hortensia Thompsonlong DO Work Phone: [facility] Wspucf20-18-3260 23:15-0400 Respiratory rate18 /minDscarlettis Jaylong DO Work Phone: [facility] Bvhumg09-55-4243 23:15-7196LcX3% (BldA) [Mass fraction]94 %Sacha Thompsonlong DO Work Phone: [facility] Ofrfep41-92-9156 23:15-0400Systolic blood qekpaqdq079 mm[Hg]Sacha Thompsonlong DO Work Phone: [facility] Ngajjz88-89-5978 15:33-0400Body mass index (BMI) [Ratio]31.12 kg/x5Uvcmke Furlong DO Work Phone: [facility] Amtjfa09-42-5370 15:33-0400Body hamdaeptvne79.49 [degF]Sacha Thompsonlong DO Work Phone: [facility] Xlapfa58-53-3656 15:33-0400Body cskmef96.82 kgDennis Jaylong DO Work Phone: [facility] Zoxonw45-09-3827 15:33-0400Diastolic blood uapcimwr80 mm[Hg]Sacha Thompsonlong DO Work Phone: [facility] Rnnfej52-02-1995 15:33-0400Heart rate 86 /minDennis Furlong DO Work Phone: [facility]09-05-2025 15:33-0400 Respiratory rate18 /minDennis Furlong DO Work Phone: [facility]09-05-2025 15:33-3570JnF2% (BldA) [Mass fraction]91 %Sacha Furlong DO Work Phone: [facility]09-05-2025 15:33-0400Systolic blood iacjgkny37 mm[Hg]Sacha Furlong DO Work Phone: [facility]08-26-2025 11:36-0400Body mass index (BMI) [Ratio]27.99 kg/f4Etxqgq Furlong DO Work Phone: [facility]08-26-2025 11:36-0400Body wrynxjdnfcs62.81 [degF]Sachagregory Thompsonlong DO Work Phone: [facility]08-26-2025 11:36-0400Body chruwy01.3 kgDennis Jaylong DO Work Phone: [facility]08-26-2025 11:36-0400Diastolic blood ogbqgphp43 mm[Hg]Sacha Furlong DO Work Phone: [facility]08-26-2025 11:36-0400Heart rate 70 /minDennis Furlong DO Work Phone: [facility]08-26-2025 11:36-0400 Respiratory rate16 /minDennis Furlong DO Work Phone: [facility]08-26-2025 11:36-2745NqU7% (BldA) [Mass fraction]96 %Sacha Furlong DO Work Phone: [facility]08-26-2025 11:36-0400Systolic blood ylqzhbia714 mm[Hg]Sacha Thompsonlong DO Work Phone: [facility] Smjyxt48-68-5329 16:24-0400Body byzsdl211.1 cmSacha Thompsonlong DO Work Phone: [facility]08-22-2025 16:24-0400Body wvvenwyhzjf89.5 [degF]Sacha Thompsonlong DO Work Phone: [facility]08-22-2025 16:24-0400Diastolic blood knnwybkd24 mm[Hg]Sacha Thompsonlong DO Work Phone: [facility]08-22-2025 16:24-0400Heart rate 67 /Hortensia Thompsonlong DO Work Phone: [facility]08-22-2025 16:24-0400 Respiratory rate18 /Hortensia Brownng DO Work Phone: [facility]08-22-2025 16:24-5078DcD8% (BldA) [Mass fraction]95 %Sacha Thompsonlong DO Work Phone: [facility]08-22-2025 16:24-0400Systolic blood xikitkzx774 mm[Hg]Sacha Brownng DO Work Phone: [facility]08-21-2025 11:00-0400Body laxccexowod12.2 [degF]Felix Hallman MD Work Phone: [facility]08-21-2025 11:00-0400Diastolic blood wgijuykr32 mm[Hg]Felix Hallman MD Work Phone: [facility]08-21-2025 11:00-0400Heart rate 77 /Guillermo Hallman MD Work Phone: [facility]08-21-2025 11:00-0400 Respiratory rate17 /Guillermo Hallman MD Work Phone: [facility]08-21-2025 11:00-1857BzW7% (BldA) [Mass fraction]93 %Felix Hallman MD Work Phone: [facility]08-21-2025 11:00-0400Systolic blood wpdfyuvc762 mm[Hg]Felix Hallman MD Work Phone: [phone]08-18-2025 18:15-0400Body iuitpm373.1 cmRujazmin Hallman MD Work Phone: [phone]08-18-2025 18:15-0400Body mass index (BMI) [Ratio]28.79 kg/o7GoddtxeFelix Hallman MD Work Phone: [phone]08-18-2025 18:15-0400Body xgiqya97.47 kgFelix Hallman MD Work Phone: [phone]-[facility]07-23-2025 13:25-0400Body .1 cmMattkathy Echavarria PA Work Phone: [phone]07-23-2025 13:25-0400Body mass index (BMI) [Ratio]31.45 kg/s8Sqxemlp Echavarria PA Work Phone: [phone] [address]07-23-2025 13:25-0400Body opkwib18.73 kgMattfrancescow Echavarria PA Work Phone: [phone]07-22-2025 13:03-0400Body lkyuoh340.1 cmVj Gray [employer] WORKER[employer] Work Phone: [facility]07-22-2025 13:03-0400Body mass index (BMI) [Ratio]30.65 kg/m2Vj Gray [employer] WORK[employer] Work Phone: [facility]07-22-2025 13:03-0400Body acguitgrqgh17.7 [degF]Vj Isaac [employer] WORK[employer] Work Phone: [facility]07-22-2025 13:03-0400Body anscad84.55 kgVj Gray [employer] WORKER[employer] Work Phone: [facility]07-22-2025 13:03-0400Diastolic blood mm[Hg]Vj Gray [employer] WORK[employer] Work Phone: [facility]07-22-2025 13:03-0400Heart rate 67 /minVj Gray [employer] WORK[employer] Work Phone: [facility]07-22-2025 13:03-0400 Respiratory rate18 /minVj Gray [employer] WORKER[employer] Work Phone: [facility]07-22-2025 13:03-8327PkM5% (BldA) [Mass fraction]95 %Vj Gray [employer] WORK[employer] Work Phone: [facility]07-22-2025 13:03-0400Systolic blood gamuqzqh573 mm[Hg]Vj Gray [employer] WORK[employer] Work Phone: [facility]07-01-2025 15:20-0400Heart rate 98 /minFelix Hallman MD Work Phone: [facility]07-01-2025 15:20-5710SzL1% (BldA) [Mass fraction]94 %Felix Hallman MD Work Phone: [facility]07-01-2025 11:05-0400Body oplaamknjfk42.1 [degF]Felix Hallman MD Work Phone: [facility]07-01-2025 11:05-0400Diastolic blood mm[Hg]Felix Hallman MD Work Phone: [facility]07-01-2025 11:05-0400 Respiratory rate16 /minFelix Hallman MD Work Phone: [phone] [place], [place] 1667807-01-2025 11:05-0400Systolic blood mm[Hg]Felix Hallman MD Work Phone: [phone] [address]07-01-2025 03:15-0400Body mass index (BMI) [Ratio]30.93 kg/m6OrxjvneFelix Hallman MD Work Phone: [phone] [address]07-01-2025 03:15-0400Body wzsfel84.3 kgFelix Hallman MD Work Phone: [phone] [address]06-29-2025 16:20-0400Body niohfx485.1 cmRujazmin Hallman MD Work Phone: [phone] [address]06-29-2025 11:23-0294QaM4% (BldA) [Mass fraction]92 %Felix Hallman MD Work Phone: [phone]06-29-2025 11:23-3836IbJ9% (BldA) [Mass fraction]67 %Felix Hallman MD Work Phone: [phone]06-29-2025 11:21-4024ZzK7% (BldA) [Mass fraction]67 %MARC RIVEROBlanchard Valley Health SystemComment on above:Performed By: #### ABG ####[facility] ([address] [address] [id number] 09:01-0400Body .1 cm Pam RICHEY Work Phone: [facility]05-21-2025 09:01-0400Body mass index (BMI) [Ratio]30.79 kg/n5AldbmygPam RICHEY Work Phone: [facility]05-21-2025 09:01-0400Body slxyltjvsaq92.7 [degF]Pam RICHEY Work Phone: [facility]05-21-2025 09:01-0400Body plhdep05.92 kgPam RICHEY Work Phone: [facility]05-21-2025 09:01-0400Diastolic blood rhvnhuvo90 mm[Hg]Pam RICHEY Work Phone: [facility]05-21-2025 09:01-0400Heart rate 88 /minPam RICHEY Work Phone: [facility]05-21-2025 09:01-0400 Respiratory rate20 /minPam RICHEY Work Phone: [facility]05-21-2025 09:01-4530OuU8% (BldA) [Mass fraction]93 %Pam RICHEY Work Phone: [facility]05-21-2025 09:01-0400Systolic blood jmggtabz990 mm[Hg]Pam RICHEY Work Phone: [facility]05-20-2025 08:04-0400Body .[address] [place], [place] 4841105-20-2025 08:04-0400Body mass index (BMI) [Ratio]30.89 kg/m2Pfo [address] [place], [place] 4841105-20-2025 08:04-0400Body knycfhhlxlp77.01 [degF]Pfo [address] [place], [place] 4841105-20-2025 08:04-0400Body dbadut93.[address] [place], [place] 4841105-20-2025 08:04-0400Diastolic blood qdwodxfc02 mm[Hg]Pfo [address] [place], [place] 4841105-20-2025 08:04-0400Heart rate81 /minP[address]05-20-2025 08:04-0400Respiratory rate16 /minPfo 4[facility]05-20-2025 08:04-2739IaM4% (BldA) [Mass fraction]98 %Pfo 4[facility]05-20-2025 08:04-0400Systolic blood lirnpzuu462 mm[Hg] Pfo 4[facility]05-16-2025 08:01-0400Body hlaxku353.1 cmPfo 1 [facility]05-16-2025 08:01-0400Body mass index (BMI) [Ratio]31.15 kg/m2Pfo [address] [place], [place] 9843905-16-2025 08:01-0400Body ltqbynejlnf43.01 [degF]Pfo [address] [place], [place] 9843905-16-2025 08:01-0400Body iwzguo88.91 kgPfo 1 [facility]05-16-2025 08:01-0400Diastolic blood mm[Hg]Pfo [address] [place], [place] 9843905-16-2025 08:01-0400Heart rate79 /minPfo [address] [place], [place] 9843905-16-2025 08:01-0400Respiratory rate15 /minPfo [address] [place], [place] 9843905-16-2025 08:01-6692XdQ2% (BldA) [Mass fraction]94 %Pfo [address] [place], [place] 9843905-16-2025 08:01-0400Systolic blood cyxycevq374 mm[Hg]Pfo [address] [place], [place] 9843905-14-2025 08:07-0400Body ohiejc079.[address] [place], [place] 9843905-14-2025 08:07-0400Body mass index (BMI) [Ratio]31.32 kg/m2Pfo 1 [facility]05-14-2025 08:07-0400Body patstrjofts81.9 [degF]Pfo 1 [facility]05-14-2025 08:07-0400Body vfkash12.[address] [place], [place] 9843905-14-2025 08:07-0400Diastolic blood heqchltz12 mm[Hg]Pfo 1 [facility]05-14-2025 08:07-0400Heart rate99 /minPfo [address] [place], [place] 9843905-14-2025 08:07-0400Respiratory rate22 /minPfo [address] [place], [place] 9843905-14-2025 08:07-8977EcC5% (BldA) [Mass fraction]93 %Pfo [address] [place], [place] 9843905-14-2025 08:07-0400Systolic blood vvxajbsr20 mm[Hg]Pfo [address] [place], [place] 9843905-12-2025 09:08-0400Body wcdcoz648.1 [facility] [address] [place] [address] 03-26-2025 09:08-0400Body mass index (BMI) [Ratio]29.95 kg/m2fo [address] [place], [place] 4841105-12-2025 09:08-0400Body kotqurgadzm92.6 [degF]Pfo [address] [place], [place] 4841105-12-2025 09:08-0400Body .[address] [place], [place] 4841105-12-2025 09:08-0400Diastolic blood vgdtubcc76 mm[Hg]Pfo [address] [place], [place] 4841105-12-2025 09:08-0400Heart rate77 /minPfo [address] [place] [address] 03-26-2025 09:08-0400Respiratory rate18 /minPfo [address] [place] [address] 03-26-2025 09:08-3020IpP5% (BldA) [Mass fraction]98 %Pfo [address] [place], [place] 4841105-12-2025 09:08-0400Systolic blood vshxuovu298 mm[Hg]Pfo [address] [place], [place] 4841105-08-2025 08:15-0400Body wasqng685.[address]05-08-2025 08:15-0400Body mass index (BMI) [Ratio]32.25 kg/m2fo [address] [place], [place] 5617805-08-2025 08:15-0400Body tscqrwconey96.1 [degF]Pfo [address] [place], [place] 5617805-08-2025 08:15-0400Body dtfwpo92.[address] [place], [place] 4841105-08-2025 08:15-0400Diastolic blood ooylzplz61 mm[Hg]Pfo 4 [facility]05-08-2025 08:15-0400Heart rate77 /minPfo [address] [place], [place] 4841105-08-2025 08:15-0400Respiratory rate16 /minPfo [address] [place], [place] 4841105-08-2025 08:15-4040SoY9% (BldA) [Mass fraction]94 %Pfo 4[facility]05-08-2025 08:15-0400Systolic blood zxosvlif194 mm[Hg]Pfo 4[facility]05-06-2025 08:36-0400Body icmpuf978.1 [facility] [address] [place], [place] 4841105-06-2025 08:36-0400Body mass index (BMI) [Ratio]31.98 kg/m2fo [address] [place], [place] 5617805-06-2025 08:36-0400Body eeamnpgvntz07.3 [degF]Pfo [address] [place], [place] 5617805-06-2025 08:36-0400Body annlav92.[address] [place], [place] 4841105-06-2025 08:36-0400Diastolic blood xwuuurns01 mm[Hg]Pfo [address] [place], [place] 5617805-06-2025 08:36-0400Heart rate85 /minPfo [address] [place], [place] 4841105-06-2025 08:36-0400Respiratory rate16 /minPfo [address] [place], [place] 4841105-06-2025 08:36-0458HzF6% (BldA) [Mass fraction]99 %Pfo [address] [place], [place] 4841105-06-2025 08:36-0400Systolic blood kjveqodm975 mm[Hg]Pfo [address] [place], [place] 4841104-30-2025 08:50-0400Body nluugr391.[address]04-30-2025 08:50-0400Body mass index (BMI) [Ratio]31.92 kg/m2fo [address] [place], [place] 5617804-30-2025 08:50-0400Body ukmayiafoyg43.1 [degF]Pfo [address] [place], [place] 5617804-30-2025 08:50-0400Body kgPfo [address] [place], [place] 4841104-30-2025 08:50-0400Diastolic blood klwpcgva41 mm[Hg]Pfo 4 [facility]04-30-2025 08:50-0400Heart rate82 /minPfo [address] [place], [place] 4841104-30-2025 08:50-0400Respiratory rate22 /minPfo [address] [place], [place] 4841104-30-2025 08:50-5382KcR0% (BldA) [Mass fraction]97 %Pfo [address] [place], [place] 4841104-30-2025 08:50-0400Systolic blood ssqshlgi723 mm[Hg]Pfo [address] [place], [place] 4841104-28-2025 08:07-0400Body smxukdklqph23.49 [degF]Pf[address]04-28-2025 08:07-0400Diastolic blood xanwsbeq40 mm[Hg]Pfo [address] [place], [place] 5617804-28-2025 08:07-0400Heart rate92 /minPfo [address] [place], [place] 4841104-28-2025 08:07-0400Respiratory rate22 /minPfo [address] [place], [place] 4841104-28-2025 08:07-1438QjX3% (BldA) [Mass fraction]96 %Pf[address]04-28-2025 08:07-0400Systolic blood mm[Hg]o [address] [place], [place] 4841103-13-2025 14:15-0400Body wezlvi277.1 John Muñoz MD Work Phone: [facility]03-13-2025 14:15-0400Body mass index (BMI) [Ratio]31.78 kg/e4LhfwuCasimiro Muñoz MD Work Phone: [facility]03-13-2025 14:15-0400Body alwmpctqxid48.1 [degF]Casimiro Muñoz MD Work Phone: [facility]03-13-2025 14:15-0400Body makspb69.64 kgCasimiro Muñoz MD Work Phone: [facility]03-13-2025 14:15-0400Diastolic blood vlpkaxaf11 mm[Hg]Casimiro Muñoz MD Work Phone: [facility] Zqvteu84-87-7039 14:15-0400Heart rate 86 /minCasimiro Muñoz MD Work Phone: [facility] Seejjg81-75-7299 14:15-0400 Respiratory rate18 /minCasimiro Muñoz MD Work Phone: [facility]03-13-2025 14:15-8681AuV6% (BldA) [Mass fraction]97 %Casimiro Muñoz MD Work Phone: [facility]03-13-2025 14:15-0400Systolic blood mm[Hg]Casimiro Muñoz MD Work Phone: [facility]03-10-2025 13:53-0400Body wsiisr630.1 cmVneil Mcneilillo [employer] WORKER[employer] Work Phone: [facility] Rhfbmj15-40-9643 13:53-0400Body mass index (BMI) [Ratio]31.88 kg/h4KkubkpnPam Mcneilillo [employer] WORKER[employer] Work Phone: [facility] Athhzf25-98-6668 13:53-0400Body jidxwquydkc17.2 [degF]Pam Stinson BR[employer] WORKER[employer]CTOR Work Phone: [facility] Gebxlh39-91-9400 13:53-0400Body lojfwy62.91 kgValerie Stinson BR[employer] WORKER[employer]CTOR Work Phone: [facility] Aklrzu96-50-6410 13:53-0400Diastolic blood wvyaotpm78 mm[Hg]Pam Mcneilillo [employer] WORKER[employer]CTOR Work Phone: [facility] Ascdgq16-64-5972 13:53-0400Heart rate 91 /minInarie Stinson BR[employer] WORKER[employer]CTOR Work Phone: [facility]03-10-2025 13:53-0400 Respiratory rate18 /minInarie Stinson BR[employer] WORKER[employer]CTOR Work Phone: [facility]03-10-2025 13:53-1915BcA3% (BldA) [Mass fraction]92 %Pam Stinson APRN-BARTOLO Work Phone: [facility]03-10-2025 13:53-0400Systolic blood xpfcfolb007 mm[Hg]Pam RICHEY Work Phone: [facility]03-06-2025 13:36-0500Diastolic blood mm[Hg][facility] Rmtvklfukh91-19-6158 13:36-0500 Systolic blood onettyyg50 mm[Hg][facility]01-14-2025 14:42-0500Body isgtmq659.1 cmVneil Stinson APRN-BARTOLO Work Phone: [facility]01-14-2025 14:42-0500Body mass index (BMI) [Ratio]32.88 kg/t9OrgtcsrPam Stinson APRN-BARTOLO Work Phone: [facility]01-14-2025 14:42-0500Body tijcavncmxr38.4 [degF]Pam Stinson APRN-BARTOLO Work Phone: [facility]01-14-2025 14:42-0500Body izdyda46.63 kgPam Stinson APRN-BARTOLO Work Phone: [facility]01-14-2025 14:42-0500Diastolic blood utfpygdl23 mm[Hg]Pam Stinson APRN-SEWER CONNECTOR Work Phone: [facility]01-14-2025 14:42-0500Heart rate 79 /minPam Stinson APRN-SEWER CONNECTOR Work Phone: [facility]01-14-2025 14:42-0500 Respiratory rate20 /minPam Stinson APRN-SEWER CONNECTOR Work Phone: [facility]01-14-2025 14:42-5843WqD7% (BldA) [Mass fraction]96 %Pam Stinson BR[employer] WORKER[employer] CONNECTOR [facility]: [facility]01-14-2025 14:42-0500Systolic blood mm[Hg]Pam Av BR[employer] WORKER[employer]ER [employer]CTOR Work Phone: [facility] Uqhqoj47-89-0608 13:54-0500Body .1 Umang Moran MD Work Phone: [facility]01-10-2025 13:54-0500Body mass index (BMI) [Ratio]32.45 kg/t7MqcypkRadha Moran MD Work Phone: [phone]-[employer]01-10-2025 13:54-0500Body weofao91.45 kgRadha Moran MD Work Phone: [facility]01-10-2025 13:54-0500Diastolic blood bgtbrrow85 mm[Hg]Radha Moran MD Work Phone: [facility]01-10-2025 13:54-0500Heart rate 51 /minRadha Moran MD Work Phone: [facility]01-10-2025 13:54-8645YsR1% (BldA) [Mass fraction]95 %Radha Moran MD Work Phone: [facility]01-10-2025 13:54-0500Systolic blood lbtdzpso123 mm[Hg]Radha Moran MD Work Phone: [facility] Fehbtc96-61-0906 08:15-0400Body iaxlqe220.1 cmVneil Stinson BR[employer] WORKER[employer]CTOR Work Phone: [facility]10-14-2024 08:15-0400Body mass index (BMI) [Ratio]34.35 kg/i8GjvdbooPam Stinson BR[employer] WORKER[employer]CTOR Work Phone: [facility] Oxftow20-63-8089 08:15-0400Body uzovssjtfnz20.5 [degF]Pam Stinson BR[employer] WORKER[employer]CTOR Work Phone: [facility] Mdcocc86-37-1991 08:15-0400Body kguisw59.62 kgPam Stinson APRN-SEWER CONNECTOR Work Phone: [facility]10-14-2024 08:15-0400Diastolic blood mm[Hg]Pam Stinson APRN-SEWER CONNECTOR Work Phone: [facility]10-14-2024 08:15-0400Heart rate 74 /minPam Stinson APRN-SEWER CONNECTOR Work Phone: [facility]10-14-2024 08:15-0400 Respiratory rate18 /minPam Stinson APRN-SEWER CONNECTOR Work Phone: [facility]10-14-2024 08:15-7703YpN1% (BldA) [Mass fraction]90 %Pam Stinson APRN-SEWER CONNECTOR Work Phone: [facility]10-14-2024 08:15-0400Systolic blood mleugozx831 mm[Hg]Pam Stinson APRN-SEWER CONNECTOR Work Phone: [facility]08-07-2024 14:48-0400Body .1 cmVneil Stinson APRN-SEWER CONNECTOR Work Phone: [facility]08-07-2024 14:48-0400Body mass index (BMI) [Ratio]33.51 kg/n8WkyrihcPam Stinson APRN-SEWER CONNECTOR Work Phone: [facility]08-07-2024 14:48-0400Body ihdxbkedfvd25.7 [degF]Pam Stinson APRN-SEWER CONNECTOR Work Phone: [facility]08-07-2024 14:48-0400Body xaurjb38.35 kgPam Stinson APRN-SEWER CONNECTOR Work Phone: [facility]08-07-2024 14:48-0400Diastolic blood mm[Hg]Pam Stinson APRN-SEWER CONNECTOR Work Phone: [facility] Swhcxs29-94-7706 14:48-0400Heart rate 66 /minPam Stinson APRN-SEWER CONNECTOR Work Phone: [facility]08-07-2024 14:48-1744QzX0% (BldA) [Mass fraction]97 %Pam Stinson APRN-SEWER CONNECTOR Work Phone: [facility]08-07-2024 14:48-0400Systolic blood suqamzom825 mm[Hg]Pam Stinson APRN-SEWER CONNECTOR Work Phone: [facility]06-19-2024 14:32-0400Body tqfhur568.1 Ryann Stinson APRN-SEWER CONNECTOR Work Phone: [facility]06-19-2024 14:32-0400Body mass index (BMI) [Ratio]34.53 kg/z7GkswkbkPam Stinson APRN-SEWER CONNECTOR Work Phone: [facility]06-19-2024 14:32-0400Body mmxvehanntm42 [degF]Pam Stinson APRN-SEWER CONNECTOR Work Phone: [facility]06-19-2024 14:32-0400Body .12 kgPam Stinson APRN-SEWER CONNECTOR Work Phone: [facility]06-19-2024 14:32-0400Diastolic blood xoeaczhl72 mm[Hg]Pam Stinson APRN-SEWER CONNECTOR Work Phone: [facility]06-19-2024 14:32-0400Heart rate 71 /minPam Stinson APRN-SEWER CONNECTOR Work Phone: [facility]06-19-2024 14:32-0400 Respiratory rate18 /minPam Stinson APRN-SEWER CONNECTOR Work Phone: [facility]06-19-2024 14:32-0297TqH4% (BldA) [Mass fraction]94 %Pam Stinson [employer] WORKER[employer] Work Phone: [facility]06-19-2024 14:32-0400Systolic blood rshpuqoh167 mm[Hg]Pam Stinson BR[employer] WORKER[employer] Work Phone: [facility] Lhawku25-56-6819 15:13-0400Body .1 John Muñoz MD Work Phone: [facility]04-25-2024 15:13-0400Body mass index (BMI) [Ratio]33.08 kg/y9SnhrtCasimiro Muñoz MD Work Phone: [facility]04-25-2024 15:13-0400Body iuzwqhzxzch99.59 [degF]Casimiro Muñoz MD Work Phone: [facility] Rfynos85-62-4589 15:13-0400Body cpcnco70.17 kgCasimiro Muñoz MD Work Phone: [facility] Mmpgun39-04-8220 15:13-0400Diastolic blood hvhgexvq18 mm[Hg]Casimiro Muñoz MD Work Phone: [facility]04-25-2024 15:13-0400Heart rate 104 /minCasimiro Muñoz MD Work Phone: [facility] Gugxxf55-19-7291 15:13-0400 Respiratory rate24 /minCasimiro Muñoz MD Work Phone: [facility]04-25-2024 15:13-5445GhP9% (BldA) [Mass fraction]97 %Casimiro Muñoz MD Work Phone: [facility] Lzvqin98-43-9247 15:13-0400Systolic blood hssegdew594 mm[Hg]Casimiro Muñoz MD Work Phone: [facility] Iszlpv96-74-7678 13:00-0400Body gcyiyo441.1 cmVronaldkyara McneilStinson BR[employer] WORKER[employer]CTOR Work Phone: [facility] Nzprdg57-78-4827 13:00-0400Body mass index (BMI) [Ratio]33.35 kg/x3CtxtpwkPam RICHEY Work Phone: [facility]03-27-2024 13:00-0400Body ywjulkntzej52.2 [degF]Pam RICHEY Work Phone: [facility]03-27-2024 13:00-0400Body .9 kgPam Stinson APRN-BARTOLO Work Phone: [facility]03-27-2024 13:00-0400Diastolic blood tqayohlb57 mm[Hg]Pam Stinson APRN-BARTOLO Work Phone: [facility]03-27-2024 13:00-0400Heart rate 79 /minPam Stinson APRN-BARTOLO Work Phone: [facility]03-27-2024 13:00-0400 Respiratory rate20 /minPam Stinson APRN-BARTOLO Work Phone: [facility]03-27-2024 13:00-8831FkF2% (BldA) [Mass fraction]97 %Pam Stinson APRN-BARTOLO Work Phone: [facility]03-27-2024 13:00-0400Systolic blood mm[Hg]Pam Stinson APRN-BARTOLO Work Phone: [facility]01-31-2024 14:51-0500Body tuvqxd205.1 cmVneil Stinson APRN-BARTOLO Work Phone: [facility]01-31-2024 14:51-0500Body mass index (BMI) [Ratio]31.02 kg/r1GqhemcuPam Stinson APRN-SEWER CONNECTOR Work Phone: [facility] Mcnrzd31-45-7146 14:51-0500Body exlkhmqqddn24.29 [degF]Pam Stinson APRN-SEWER CONNECTOR Work Phone: [facility]01-31-2024 14:51-0500Body .54 kgPam Stinson APRN-SEWER CONNECTOR Work Phone: [facility]01-31-2024 14:51-0500Diastolic blood tjazgadb35 mm[Hg]Pam Stinson APRN-SEWER CONNECTOR Work Phone: [facility]01-31-2024 14:51-0500Heart rate 89 /minPam Stinson APRN-SEWER CONNECTOR Work Phone: [facility]01-31-2024 14:51-1171HcK3% (BldA) [Mass fraction]94 %Pam Stinson APRN-SEWER CONNECTOR Work Phone: [facility]01-31-2024 14:51-0500Systolic blood okzcazrc264 mm[Hg]Pam Stinson APRN-SEWER CONNECTOR Work Phone: [facility]01-11-2024 13:56-0500Body kfccew163.1 John Muñoz MD Work Phone: [facility]01-11-2024 13:56-0500Body mass index (BMI) [Ratio]31.45 kg/n0JndnmCasimiro Muñoz MD Work Phone: [facility]01-11-2024 13:56-0500Body zkspprywqmq42 [degF]Casimiro Muñoz MD Work Phone: [facility]01-11-2024 13:56-0500Body tpxyiv67.73 kgCasimiro Muñoz MD Work Phone: [facility]01-11-2024 13:56-0500Diastolic blood ccqmkqno44 mm[Hg]Casimiro Muñoz MD Work Phone: [facility]01-11-2024 13:56-0500Heart rate 65 /minCasimiro Muñoz MD Work Phone: [facility]01-11-2024 13:56-0500 Respiratory rate16 /Keshia Muñoz MD Work Phone: [facility]01-11-2024 13:56-0575BiE4% (BldA) [Mass fraction]91 %Casimiro Muñoz MD Work Phone: [facility]01-11-2024 13:56-0500Systolic blood mm[Hg]Casimiro Muñoz MD Work Phone: [facility]03-01-2023 07:13-0500Body .01 [degF]Georges Doe MD Work Phone: [facility]03-01-2023 07:13-0500Diastolic blood iawggxdy76 mm[Hg]Georges Doe MD Work Phone: [facility]03-01-2023 07:13-0500Heart rate57 /Stephany Doe MD Work Phone: [facility]03-01-2023 07:13-0500 Respiratory rate18 /Stephany Doe MD Work Phone: [facility] [employer] [facility]TONIncredible LabsARLNIP12-21-2814 07:13-1898QfD5% (BldA) [Mass fraction]98 %Georges Doe MD Work Phone: [facility]03-01-2023 07:13-0500Systolic blood ngiqljuv189 mm[Hg]Georges Doe MD Work Phone: [facility]01-27-2023 07:58-0500Body njbsyvojxjf38.8 [degF]Georges Doe MD Work Phone: [facility]01-27-2023 07:58-0500Diastolic blood ndbgxivl88 mm[Hg]Georges Doe MD Work Phone: [facility]01-27-2023 07:58-0500Heart rate85 /Stephany Doe MD Work Phone: [facility] [id number] 07:58-0500 Respiratory rate16 /minGeorges Doe MD Work Phone: [facility] [id number] 07:58-8813XpG7% (BldA) [Mass fraction]97 %Georges Doe MD Work Phone: [facility] [id number] 07:58-0500Systolic blood gbbdrmno426 mm[Hg]Georges Doe MD Work Phone: [facility] [id number] 11:44-0500Body exbcwe328.1 Uzair Doe MD Work Phone: [facility] [id number] 11:44-0500Body mass index (BMI) [Ratio]34.61 kg/g2CovstGeorges Doe MD Work Phone: [facility] [id number] 11:44-0500Body vzivje10.35 kgGeorges Doe MD Work Phone: [facility] [id number] 11:44-0500Body gxeyyg011.1 cmStv [facility] [id number] 11:44-0500Body mass index (BMI) [Ratio]34.95 kg/m2Stv [facility] [id number] 11:44-0500Body oowqugcevtg80.4 [degF]Stv [facility] [id number] 11:44-0500Body claega00.25 kgStv [facility] [id number] 11:44-0500Diastolic blood wppdgzde43 mm[Hg]Stv [facility] [id number] 11:44-0500Heart rate60 /minStv [facility] [id number] 11:44-0500Respiratory rate15 /minStv [facility] DAYTONIncredible [id number] 11:44-8055MxU1% (BldA) [Mass fraction]93 % Stv [facility] [place] [employer] [id number] 11:44-0500Systolic blood zodpueqc650 mm[Hg]Stv [facility] [place] [employer] Encounters Encounter DateEncounter TypeCare ProviderFacilityStart: 09-05-2025 End: 31-89-1963tntklqbvvfGgqdfj G Jayradu DO Work Phone: [facility] - Family MedicineComment on above: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 (CMS-HCC) (Primary Dx); Hypertensive heart and chronic kidney disease with heart failure and stage 1 through stage 4 chronic kidney disease, or unspecified chronic kidney disease (CMS-HCC); Nausea and vomiting, unspecified vomiting typeStart: 09-02-2025 End: 58-57-5008JowxfkPywyPranay Gray APRN-SEWER CONNECTOR Work Phone: [facility] - Family MedicineStart: 08-31-2025 End: 95-13-8236xjuwwdpawbMTXJV N [facility] HOSPITALKenya [facility] HospitalStart: 08-22-2025 End: 48-89-7994Mmtmok follow up visit related to original German Marinelli MD Work Phone: [facility] Orthopedics/Trauma and Adult ReconstructionComment on above:Lesion of left femur (Primary Dx); 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Start: 08-22-2025 End: 69-85-0136moehrnziouDYPPHYVFracisco Hawthorne [facility] HospitalStart: 08-14-2025 End: 23-80-8366WfhqmeCedric Alonzo [facility] Orthopedics/Trauma and Adult ReconstructionComment on above: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, subsequent encounter (Primary Dx)Closed nondisplaced fracture of lesser trochanter of right femur with delayed healing (Primary Dx); Confusion; Other abnormalities of gait and mobility; Chronic obstructive pulmonary disease, unspecified COPD type (CMS-HCC); Hypertensive heart and chronic kidney disease with heart failure and stage 1 through stage 4 chronic kidney disease, or unspecified chronic kidney disease ([facility]); Anemia, unspecified typeStart: 08-10-2025 End: 35-10-5406bsncqiroakSdkabk G Furlong DO Work Phone: [facility] Medicine - Family MedicineComment on above:Chronic obstructive pulmonary disease, unspecified COPD type ([facility]) (Primary Dx); Hypertensive heart and chronic kidney disease with heart failure and stage 1 through stage 4 chronic kidney disease, or unspecified chronic kidney disease ([facility]-HCC); Chronic diastolic congestive heart failure ([facility]); Pathological fracture, hip, unspecified, subsequent encounter for fracture with routine healingStart: 08-08-2025 End: 04-72-1612oktdvtlzbhNbryom G Furlong DO Work Phone: [facility] Internal Medicine - Family [facility] HospitalComment on above:Closed nondisplaced fracture of lesser trochanter of right femur with delayed healing (Primary Dx); Stage 3b chronic kidney disease ([facility]); Type 2 diabetes mellitus with stage 4 chronic kidney disease, without long-term current use of insulin ([facility]); Chronic diastolic congestive heart failure ([facility])Start: 08-06-2025 End: 36-98-3402Ofmossgmdp and management of [facility] Hospitaltart: 08-03-2025 End: 11-73-3313hbtpeatmngYjngzb G Furlong DO Work Phone: [facility] Internal Medicine - Family MedicineComment on above:Lesion of left femur (Primary Dx); Coronary artery disease involving tyonek coronary artery of tyonek heart without angina pectoris; Chronic diastolic congestive heart failure ([facility]); S/p TAVR (transcatheter aortic valve replacement), bioprosthetic; Hypertensive heart and chronic kidney disease with heart failure and stage 1 through stage 4 chronic kidney disease, or unspecified chronic kidney disease ([facility])Start: 08-02-2025 End: 02-64-0845Glpgwxlve encounterSherrochelle Ybarra [facility] [place] Orthopedics/Trauma and Adult ReconstructionStart: 08-01-2025 End: 33-85-1222ViotzzRfct Cooper [facility] CENTERProMedica [facility]icians Internal Medicine - Family MedicineStart: 08-01-2025 End: 27-71-0433Dlyakh outpatient visit 40 minutesRa Marinelli MD Work Phone: [facility] Orthopedics/Trauma and Adult ReconstructionComment on above: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, subsequent encounter (Primary Dx); Lesion of left femurStart: 07-31-2025 End: 12-58-7526Savazaxwgxxcj Zehra Carnes [facility] - Medical OncologyStart: 07-31-2025 End: 00-96-9521ckshudbdbxIEQODRSLancaster Municipal Hospitaltart: 07-30-2025 End: 96-99-8760MqjxywEcde Cooper CMAProMedica Physicians Internal Medicine - Family MedicineComment on above: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); Insomnia, unspecified typeStart: 07-27-2025 End: 93-65-0160Kqqisufwa encounterCinda Browning RN Work Phone: [facility] Medicine - Family MedicineStart: 07-25-2025 End: 26-88-5063Ssluucyzz encounterViridiana Mathews MD Work Phone: [facility] On[facility], A Department of [facility]uff[facility] HospitalComment on above:AppointmentStart: 07-24-2025 End: 30-61-6762tmuvxgoauoEtlwdg G Furlong DO Work Phone: [facility] Internal Medicine - Family MedicineComment on above:Chronic diastolic congestive heart failure (CMS-HCC) (Primary Dx); Pathological fracture of right hip with routine healing, unspecified pathological cause, subsequentencounter; Closed fracture of right hip, sequela; Closed nondisplaced fracture of lesser trochanter of right femur with delayed healing; Other abnormalities of gait and mobility; Hypertensive heart and chronic kidney disease with heart failure and stage 1 through stage 4 chronic kidney disease, or unspecified chronic kidney disease (CMS-HCC)Start: 07-20-2025 End: 69-63-8194uvtfmkznchVsiutm G Furlong DO Work Phone: [facility] Medicine - Family MedicineComment on above:Pathological fracture of right hip with routine healing, unspecified pathological cause, subsequentencounter (Primary Dx); Closed nondisplaced fracture of pelvis with routine healing, unspecified part of pelvis, subsequentencounter; Mixed diabetic hyperlipidemia associated with type 2 diabetes mellitus ([facility]); Hypertensive heart and chronic kidney disease with heart failure and stage 1 through stage 4 chronic kidney disease, or unspecified chronic kidney disease ([facility]-HCC)Start: 07-19-2025 End: 31-05-1569gpgbcwwwbzYGYN D KROTZERProMedica [facility] Fire HospitalStart: 07-13-2025 End: 67-92-5080qogrqzeqyoIKKP D KROTZERProPomerene Hospitalca [facility] HospitalStart: 89-88-3215Tnqbfflan for preprocedural respiratory examinationMARIA GUADALUPE Villatoro [facility] HospitalStart: 07-12-2025 End: 19-89-2498Ufrkbwhtfu and management of inpatientJAGRUTI NIMIT SHAHProGrand Lake [facility] HospitalStart: 07-10-2025 End: 38-27-5118vsqcpylyfqMQBD Vicki COBOSZERProOhiohealth Shelby Hospital HospitalStart: 07-10-2025 End: 98-74-7515Tnamlhagusto FRIEND Work Phone: NODD [place] [facility]opaedicsStart: 07-10-2025 End: 40-44-9089Wrakfksusan FRIEND Work Phone: noms [place] OrthopaedicsStart: 07-10-2025 End: 65-91-9602cjqsxukswlEWGDAFE J MEYERNot AvailableComment on above: Hypertensive heart and chronic kidney disease with heart failure and stage 1 through stage 4 chronic kidney disease, or unspecified chronic kidney disease ([facility]) (Primary Dx); Chronic obstructive pulmonary disease, unspecified COPD type ([facility]-H[facility]); Lumbar back pain with radiculopathy affecting left lower extremity; Spinal stenosis of lumbar region with neurogenic claudication; Closed fracture of right hip, sequela; Rhinitis, unspecified typeStart: 07-10-2025 End: 93-19-8688Vafqfj outpatient visit 25 minutesMattkathy FRIEND Work Phone: NOFill[facility] Hospital OrthopaedicsComment on above:Acute right hip pain (Primary Dx); Closed avulsion fracture of right hip with routine healing, subsequent encounter; Intertrochanteric fracture of right hip, closed, initial encounter (HCC)Start: 07-08-2025 End: 91-68-2170Lyijel-up encounterDoctors Hospital - EmergencyComment on above:Blood culture, Blood cultureStart: 07-06-2025 End: 12-67-0675khnpfokzrjNieoeo G Furlong DO Work Phone: [facility] Medicine - Family MedicineComment on above:Chronic diastolic congestive heart failure (CMS-HCC) (Primary Dx); Hypertensive heart and chronic kidney disease with heart failure and stage 1 through stage 4 chronic kidney disease, or unspecified chronic kidney disease ([facility]); Intractable nausea and vomiting; Urinary tract infection without hematuria, site unspecifiedStart: 07-05-2025 End: 22-90-7689Yxdxygeuu encounterViridiana Mathews MD Work Phone: [facility] Oncology, A Department of [facility]aritan HospitalComment on above:AppointmentStart: 07-03-2025 End: 71-74-8612poyhciwoigQGJQ D [facility] HospitalStart: 07-02-2025 End: 85-92-5849Vbbdmmbwpe and management of inpatientJogeraldo Thibodeaux MD Work Phone: [place] [address] Med SurgComment on above:Adnexal mass (Primary Dx); Intractable nausea and vomiting; Type 2 diabetes mellitus without complication, without long-term current use of insulin ([facility]); Generalized weakness; Hypomagnesemia; Iron deficiency anemia due to chronic blood lossStart: 07-02-2025 End: 68-47-4687rxbpzdrkrsHXGH D KROTZERTuscarawas Hospital HospitalStart: 06-25-2025 End: 14-17-8496ghxaoynkaqFoxmudt D [facility] Work Phone: Start: 06-25-2025 End: 29-69-7492Sufknyes ReferredRa Cohen DO-LAB [facility] Start: 06-21-2025 End: 98-76-3503Yeqqtjuol encounterMaabdirizak FRIEND Work Phone: noMS [place] OrthopaedicsComment on above:wants to know if she can do outpatient wants to be referredStart: 06-18-2025 End: 59-83-3073Kpgmysjxy encounterMaabdirizak FRIEND Work Phone: noMS [place] OrthopaedicsComment on above:OTC Tylenol not workingStart: 06-11-2025 End: 50-95-9340syvkubixpcOZSJ D KROTZERProMedica [place] HospitalStart: 06-10-2025 End: 49-24-7953Psotboooo department patient visitKYLE D KROTZERProMedica [place] HospitalStart: 06-08-2025 End: 35-73-1527Pgrmfbdch department patient visitKYLE D KROTZERProMedica [place] HospitalStart: 06-06-2025 End: 30-91-1026Vvjzro flowsYulisa FRIEND Work Phone: noms FB ORTHOPAEDICSStart: 06-06-2025 End: 88-94-5855Xygren Samra FRIEND Work Phone: noms FB ORTHOPAEDICSStart: 06-06-2025 End: 13-97-0208Jgjwht outpatient visit 15 minutesMaabdirizak FRIEND Work Phone: noms FB ORTHOPAEDICSComment on above:Acute right hip pain (Primary Dx); Acute pain of both hips; Closed avulsion fracture of right hip with routine healing, subsequent encounter Start: 06-06-2025 End: 95-70-1300pgwwowehzuZYJUYAU J MEYERNot AvailableStart: 06-05-2025 End: 92-92-2349Dyswvqdznrxp care manage srvc 14 day dischargeKyle D Krotzer BRUSH WORKER-SEWER CONNECTOR Work Phone: [facility] Phys[facility] Internal Medicine - Family MedicineComment on above:Hospital discharge follow-up (Primary Dx); Closed fracture of right hip, sequelaStart: 06-05-2025 End: 84-91-7296aegusskqflUIEJ D KROTZERSt. Joseph's Hospital PPGStart: 06-04-2025 End: 34-19-6937vznbmrdzsiGAAVSNLHocking Valley Community Hospitaltart: 05-30-2025 End: 20-42-2256jhbogydfosJRRW L [facility], Inctart: 05-29-2025 End: 16-56-9995Mjiiwojam department patient visitMICHAEL Carnes [facility] Hospitaltart: 05-28-2025 End: 30-16-2635ccglkflpvaDDQCLDSI JILMercy Health St. Vincent Medical Centertart: 05-22-2025 End: 68-53-7818dmdawbmdybHXOMQCXHocking Valley Community Hospitaltart: 05-15-2025 End: 19-74-4367rlqzlanatoLESEEXJ T BRODERICKMercy Health St. Vincent Medical Centertart: 05-14-2025 End: 02-13-5707lxlucxxpkmNKMTMC D WALTERSMercy Health St. Vincent Medical Centertart: 05-13-2025 End: 50-96-7112Erwhsbhywl and management of inpatientJekalin Santos Tiffany DO Work Phone: [facility] - Acute Care Comment on above:Acute respiratory failure with hypoxia ([facility]) (Primary Dx); Nondisplaced fracture of lesser trochanter of right femur, initial encounter for closed fracture ([facility]-HCC); Generalized weakness; Closed fracture of right hip, initial encounter ([facility]); Hypoxia; Type 2 diabetes mellitus with hypoglycemia without coma, with long-term current use of insulin (CMS-HCC)Start: 05-12-2025 End: 31-87-6105Mdxeesmnc department patient visitMICHAEL Carnes [facility] Hospitaltart: 05-12-2025 End: 44-03-9946pzdqzdvbjbJJHA L [facility], Inctart: 05-11-2025 End: 29-82-5577Mogevpxmf department patient visitMICHAEL Carnes [facility] Hospitaltart: 05-09-2025 End: 31-17-6201Mzffkzpop department patient visitMICHAEL Carnes [facility] [place] [facility] Hospitaltart: 05-01-2025 End: 39-58-3211nsvxjwbixzXWFLYM ROY [facility] Centertart: 04-28-2025 End: 61-71-8128Xphzlzhme department patient visitDATIRSO SANCHEZ [facility] Hospitaltart: 04-05-2025 End: 84-35-2929vrsxvuyfxlXXUQNY [facility] Start: 04-04-2025 End: 44-46-9401Rcgvtx outpatient visit 15 minutesPam Stinson APRN-BARTOLO Work Phone: [facility] Medicine - Family MedicineComment on above:Moderate major depression (CMS-HCC) (Primary Dx); Insomnia, unspecified type; Normal pressure hydrocephalus (CMS-HCC); Acute on chronic diastolic heart failure (CMS-HCC); Diabetes mellitus type 2, insulin dependent ([facility])Start: 04-04-2025 End: 16-56-2437htbckoksliRJFNYQU J CASTILLOSelect [facility] Start: 04-03-2025 End: 73-97-4721oivvnjufabHdp Infusion Chair [address] [place] [address] - Medical OncologyComment on above:Staphylococcus aureus bacteremia with sepsis (CMS-HCC) (Primary Dx); MRSA (methicillin resistant Staphylococcus aureus)Start: 04-01-2025 End: 13-01-3568gptmgqogbnXoz Infusion Bed 1DWoman[facility] Hospital - Medical OncologyComment on above:Staphylococcus aureus bacteremia with sepsis ([facility]-HCC) (Primary Dx); MRSA (methicillin resistant Staphylococcus aureus)Start: 03-30-2025 End: 97-03-6749tvlkakiuglVir Infusion Bed 1DWoman's Hospital - Medical OncologyComment on above:Staphylococcus aureus bacteremia with sepsis ([facility]) (Primary Dx); MRSA (methicillin resistant Staphylococcus aureus)Start: 03-28-2025 End: 03-22-0776mcpirbydeeQek Infusion Bed 1DO[facility] OncologyComment on above:Staphylococcus aureus bacteremia with sepsis ([facility]-HCC) (Primary Dx); MRSA (methicillin resistant Staphylococcus aureus)Start: 03-26-2025 End: 01-61-5718tvyogtsojwDxl Infusion Chair [address] [place] [address] OncologyComment on above:Staphylococcus aureus bacteremia with sepsis ([facility]) (Primary Dx); MRSA (methicillin resistant Staphylococcus aureus)Start: 03-24-2025 End: 22-87-2632Fbfkyvrfn department patient visitCanonsburg Hospitaltart: 03-24-2025 End: 47-41-5841slogtiviktGra Infusion Chair [address] [place] [address] OncologyComment on above:Staphylococcus aureus bacteremia with sepsis ([facility]) (Primary Dx); MRSA (methicillin resistant Staphylococcus aureus)Start: 51-09-7913kzgcmtzmko PAM [facility] HospitalStart: 03-22-2025 End: 64-80-8006jlaqxvnnacCqz Infusion Chair [address] [place] [address] OncologyComment on above:Staphylococcus aureus bacteremia with sepsis ([facility]) (Primary Dx); MRSA (methicillin resistant Staphylococcus aureus)Start: 03-22-2025 End: 62-94-2019ukwzhpmyhxCJFLYENCopper Queen Community Hospital HospitalStart: 03-20-2025 End: 15-03-8333Kjufyp WorkMonik Gillis LSWDOchsner Medical Center OncologyComment on above:Staphylococcus aureus bacteremia with sepsis ([facility]) (Primary Dx); MRSA (methicillin resistant Staphylococcus aureus)Start: 03-16-2025 End: 79-22-4977Pcalemxca department patient visitSUSAN [facility] HospitalStart: 03-16-2025 End: 26-37-7252Iqxawhxolg and management of inpatientTucson Heart Hospital HospitalStart: 03-14-2025 End: 13-40-8536cuumhrjkxwJbe Infusion Chair 4DVista [facility] Hospital Medical OncologyComment on above:Staphylococcus aureus bacteremia with sepsis ([facility]) (Primary Dx); MRSA (methicillin resistant Staphylococcus aureus)Start: 03-12-2025 End: 98-65-5728gnwnvamtldNrt Infusion Chair [address] [place] [address] OncologyComment on above:Staphylococcus aureus bacteremia with sepsis ([facility]) (Primary Dx); MRSA (methicillin resistant Staphylococcus aureus)Start: 03-09-2025 End: 51-05-0621Gioiup Jadyn Grajeda RNDorotP & S Surgery Center OncologyComment on above:Staphylococcus aureus bacteremia with sepsis ([facility]) (Primary Dx)Start: 03-08-2025 End: 22-28-5667StkgvhCedric Causey [facility] Work Phone: dOchsner Medical Center OncologyComment on above:MRSA (methicillin resistant Staphylococcus aureus) (Primary Dx); Staphylococcus aureus bacteremia with sepsis ([facility]-HCC)Start: 02-18-2025 End: 87-91-9612Tlpfuoarx encounterCherly L VensonProMedica Call CenterComment on above:critical labStart: 02-15-2025 End: 97-36-0287uusenrqtwmVAUDIX U GILLProMediMercy Health St. [facility] HospitalStart: 02-14-2025 End: 38-60-8707Vwxerpkdfd and management of inpatientVENU GOPALA R BOMMANA [facility] HospitalStart: 02-12-2025 End: 34-65-4445Dhkjlrhnqj and management of inpatientVALERIE J CASTILLOProOhiohealth Shelby Hospital HospitalStart: 02-12-2025 End: 95-53-8751CkfhhkKendall Villar Work Phone: ANGELA [place]edoStart: 00-94-3636rxeehsgtljGnvfgz Al Shweiki [facility] Centertart: 02-03-2025 End: 06-76-4690ftgrgnyvteXRECEUA L LIGIBELProMediResearch Medical Center[facility] HospitalStart: 02-02-2025 End: 27-56-5278dadbjzkusdOFRGHVJ L LIGIBELProMediMotion Picture & Television Hospitaltart: 01-25-2025 End: 20-72-2823Wiuxmv outpatient visit 40 minutesCasimiro Muñoz MD Work Phone: Stephany Landaverde [facility] - Medical OncologyComment on above:Malignant neoplasm of upper-outer quadrant of right breast in female, estrogen receptor positive (CMS-HCC) (Primary Dx); Metastasis to bone (CMS-HCC)Start: 01-25-2025 End: 13-03-2621ukfyemieezVQLAB N XIAProMedica Tustin Rehabilitation Hospitaltart: 01-22-2025 End: 63-08-7587ppeabjfqgiISZOIOD L LIGTriHealth Bethesda North Hospitaltart: 01-22-2025 End: 93-61-7657fwqlfdgddcEATNMDQFauquier Health System Start: 01-22-2025 End: 58-13-6234Jeehlo outpatient visit 15 minutesPam Stinson APRN-SEWER CONNECTOR Work Phone: [facility] Internal Medicine - Family MedicineComment on above:Insomnia, unspecified type (Primary Dx); Moderate episode of recurrent major depressive disorder ([facility]); Stage 3b chronic kidney disease ([facility]-H[facility])Start: 01-18-2025 End: 22-24-7181Tfosvc outpatient new 45 minutesSatheodore Villar Work Phone: RVA [place]edoStart: 01-18-2025 End: 42-76-3206FylpxjDrzlyxa J Castillo BRUSH WORKER-SEWER CONNECTOR Work Phone: [facility] Internal Medicine - Family MedicineComment on above: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 mellitus ([facility]-H[facility]) Start: 01-15-2025 End: 26-56-4538ZecdzoCedric Landaverde [facility] - Medical OncologyComment on above:Malignant neoplasm of upper-outer quadrant of right breast in female, estrogen receptor positive (CMS-HCC) (Primary Dx)Start: 01-11-2025 End: 67-94-4467Mtbognucc department patient visitCanonsburg Hospitaltart: 01-10-2025 End: 11-67-3340Sidscplqj department patient visitNING De La Rosa JONATHANPaulding County Hospitaltart: 01-03-2025 End: 95-74-2160Yxdvknfpn department patient visitPAM De La Rosa [facility] Hospitaltart: 22-25-2174qylqqmaoknHgvvaye R PetersenCincinnati Eye InstituteStart: 12-04-2024 End: 63-25-6571etxmctgiouTYKIG [facility] Hospitaltart: 11-28-2024 End: 51-98-7545Cvdqrd outpatient visit [address] JENKINS-SEWER CONNECTOR Work Phone: [facility] Medicine - Family MedicineComment on above:Mixed diabetic hyperlipidemia associated with type 2 diabetes mellitus ([facility]) (Primary Dx); Insomnia, unspecified type; Elevated troponin level; Recurrent UTIStart: 11-28-2024 End: 44-54-7158copcnsolvdGMHVJGYIsland Hospital Ambulatory P[facility] Start: 11-24-2024 End: 95-05-9015Epwmre outpatient visit 25 minutesRadha Moran MD Work Phone: [facility] CardiologyComment on above: Nonrheumatic aortic valve stenosis (Primary Dx); S/p TAVR (transcatheter aortic valve replacement), bioprosthetic; Coronary artery disease involving tyonek coronary artery of tyonek heart without angina pectorisStart: 11-24-2024 End: 99-68-4941sabytfjzplFURDFP D [facility] Centertart: 11-23-2024 End: 71-88-5242Zkdsqhcit encounterJazzmine Vega CMAProMedica Physicians CardiologyStart: 11-19-2024 End: 26-68-5613Utlsnpxtr department patient visitPAM De La Rosa [facility] Hospitaltart: 11-17-2024 End: 23-69-2980Xigfjodtr department patient visitPAM De La Rosa [facility] Hospitaltart: 11-13-2024 End: 51-23-6978Gliljegxs encounterIrina Brunner MD Work Phone: [facility] CardiologyComment on above: Hospital Follow-upStart: 11-10-2024 End: 25-16-1540Ibmlufmah encounterMaddie Givens RN Work Phone: [facility] Internal Medicine [facility] MedicineStart: 11-09-2024 End: 20-09-0030sgrthzhnalZDEXVPA J [facility] Hospitaltart: 10-27-2024 End: 94-13-8739Pnbesmiunc and management of inpatientVALERIKyara De La Rosa [facility] Hospitaltart: 10-25-2024 End: 95-85-4552AapzalCedric Rosales DO Work Phone: [facility] Internal Medicine [facility] Braseltontart: 10-11-2024 End: 59-79-6964Zxfbqcdms department patient visitSHORE MEMORIAL HOSPITALKyara De La Rosa [facility] Hospitaltart: 10-09-2024 End: 53-21-7809Nomiqynut department patient visitVALERIKyara De La Rosa [facility] Hospitaltart: 09-15-2024 End: 63-37-9056ldncgnkdmaIBVAJSBethesda North Hospitaltart: 09-06-2024 End: 68-48-9463Yveyvitmr encounterMisty Prince RHIANNAProMedica Physicians Internal [facility] MedicineStart: 08-29-2024 End: 95-66-2376IkazxdTqeaPoncho Gray APRN-SEWER CONNECTOR Work Phone: [facility] Internal MedicineStart: 08-28-2024 End: 50-62-8530syueyeooudIOXEZOS [facility] P[facility] Start: 08-28-2024 End: 15-83-0271Dcthcovkmwpq care manage srvc 7 day dischargePam Estrella McneilStinson BRUSH WORKER-SEWER CONNECTOR Work Phone: [facility] Internal Medicine [facility] MedicineComment on above:Hypoglycemia (Primary Dx); Need for influenza vaccination; Altered mental status, unspecified altered mental status typeStart: 08-24-2024 End: 35-28-0928SsikywIhax D Krotzer BRUSH WORKER-SEWER CONNECTOR Work Phone: [facility] Internal MedicineStart: 08-16-2024 End: 34-12-2118Lsoulcxnm encounterKokb [facility] Internal Medicine - Family MedicineComment on above:Transition Of CareStart: 07-12-2024 End: 40-48-4611RbmcxjKdgl D Krotzer BRUSH WORKER-SEWER CONNECTOR Work Phone: [facility] Internal MedicineStart: 06-21-2024 End: 31-92-4744Klhsjmieqljn care manage srvc 7 day dischargePam Stinson BRUSH WORKER-SEWER CONNECTOR Work Phone: [facility] Internal Medicine - Family MedicineComment on above:Hypoglycemia (Primary Dx); Mild intermittent reactive airway disease with acute exacerbationStart: 06-21-2024 End: 01-46-6636jfuderiqlfPUCJVVOFalls [facility] Start: 06-02-2024 End: 85-60-5419XbrxtdTfzqjpd J Castillo BRUSH WORKER-SEWER CONNECTOR Work Phone: [facility] Internal Medicine - Family MedicineComment on above:Essential hypertension; Major depressive disorder in partial remission, unspecified whether recurrent ([facility])Start: 05-11-2024 End: 08-25-0405TizptmNobsjhd J Castillo BRUSH WORKER-SEWER CONNECTOR Work Phone: [facility] Internal Medicine - Family MedicineComment on above:Major depressive disorder in partial remission, unspecified whether recurrent ([facility])Start: 05-03-2024 End: 81-50-7557Mfivqomupvrk care manage srvc 7 day dischargePam Stinson BRUSH WORKER-SEWER CONNECTOR Work Phone: [facility] Internal Medicine - Family MedicineComment on above:Pneumonia due to other specified organism (Primary Dx) Start: 03-09-2024 End: 22-99-0767Kxbrhv outpatient visit 25 minutesChaflora Muñoz MD Work Phone: Stephany Carnes [facility] - Medical OncologyComment on above:Malignant neoplasm of upper-outer quadrant of right breast in female, estrogen receptor positive (CMS-HCC) (Primary Dx); Metastasis to bone (CMS-HCC)Start: 03-09-2024 End: 75-72-9071UdgymeCedric Strong RNDovenkatmarbella Carnes [facility] - Medical OncologyComment on above:Malignant neoplasm of upper-outer quadrant of right female breast, unspecified estrogen receptor status (CMS-HCC) (Primary Dx); Malignant neoplasm of upper-outer quadrant of right breast in female, estrogen receptor positive (CMS-HCC)Start: 02-28-2024 End: 25-97-0503Fnzadwojd encounterPaige [facility] Neurology Start: 02-09-2024 End: 17-18-6474Fcgowa outpatient visit 25 minutesPam Stinson APRNTwentyFour6 Work Phone: [facility] Medicine - Family MedicineComment on above:Acute cystitis without hematuria (Primary Dx); Urge incontinence of urineStart: 97-89-8533EougnaJruwf N Xia MD Work Phone: Stephany Trice [facility] - Medical OncologyComment on above:Malignant neoplasm of upper-outer quadrant of right female breast, unspecified estrogen receptor status (CMS-HCC)Start: 12-15-2023 End: 26-41-3866Lvwomh outpatient visit 25 minutesPam Stinson APRNTwentyFour6 Work Phone: [facility] - Family MedicineComment on above:Upper respiratory tract infection, unspecified type (Primary Dx); Normal pressure hydrocephalus (CMS-HCC); Moderate episode of recurrent major depressive disorder (CMS-HCC); PVD (peripheral vascular disease) (CMS-HCC); 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); Stage 3b chronic kidney disease (CMS-HCC); Major depressive disorder in partial remission, unspecified whether recurrent (CMS-HCC); Essential hypertension; GERD without esophagitis; 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 ([facility]-H[facility])Start: 18-92-2139NfsofgKybvavp J Castillo BRUSH WORKER-SEWER CONNECTOR Work Phone: [facility] Internal Medicine - Family MedicineComment on above:Insomnia, unspecified typeStart: 11-25-2023 End: 83-52-4217Ksrvzl outpatient visit 25 minutesChaflora Muñoz MD Work Phone: [facility] - Medical OncologyComment on above:Malignant neoplasm of upper-outer quadrant of right female breast, unspecified estrogen receptor status ([facility]) (Primary Dx); Malignant neoplasm of upper-outer quadrant of right breast in female, estrogen receptor positive (CMS-HCC)Start: 32-39-2651Fzgslg Brooklyn Strong RNDoByrd Regional Hospital - Medical OncologyComment on above:Malignant neoplasm of upper-outer quadrant of right female breast, unspecified estrogen receptor sta tus ([facility]) (Primary Dx); Malignant neoplasm of upper-outer quadrant of right breast in female, estrogen receptor positive ([facility])Start: 01-13-2023 End: 70-21-0210yovqlduirhWJDQYCCR R BORKOSKgalinaEmanate Health/[facility] Start: 01-13-2023 End: 39-13-6219Lsgyfzqbmc hospital visit by Seble Doe MD Work Phone: stvz 3C ObservationComment on above:ArrivedSevere aortic valve stenosis (Primary Dx); Type 2 diabetes mellitus with diabetic neuropathy, with long-term current use of insulin ([facility]); Tremors of nervous system; Family history of coronary arteriosclerosis; CHELSEA (obstructive sleep apnea) nonadherent with cpap; Stage 3a chronic kidney disease (HCC); Coronary artery disease involving [place] coronary artery of [place]k heart without angina pectorisAortic valve stenosis, etiology of cardiac valve disease unspecifiedStart: 12-07-2022 End: 05-95-2278opkpkvecskQRVHR KAMcCullough-Hyde Memorial Hospitaltart: 12-07-2022 End: 44-89-9159Ivpfrainme hospital visit by Seble Doe MD Work Phone: stvz 5A StepdownComment on above:Severe aortic valve stenosis (Primary Dx)Start: 11-24-2022 End: 80-40-5950akmsaynlckKOKJ [facility] Centertart: 11-24-2022 End: 49-71-8358Behzhqjusm hospital visit by physicianStmino Full Stack Php Developer BSTVZ Cath LabComment on above:Canceled (Case cancelled)Start: 09-28-2022 End: 03-56-5587Ehlfybpyaf and management of inpatientMIHCAEL Davis [facility] Hospitaltart: 03-31-2022 End: 58-21-0521gfqapozoljWpworky OvittFacility:UTMCStart: 03-26-2021 End: 80-74-8952wygqpboaeoHCYFV [facility] Hospitaltart: 03-24-2021 End: 79-91-7420zjuslkmyxuPCZHBQ [facility] Northtart: 03-24-2021 End: 07-75-6204Ykkndlkjig hospital visit by Jake DuarteMTHZ Laboratory Start: 03-19-2021 End: 34-58-9911ybjcvjxmmgJFMJYTZ CASTILLOFacility:J9Njrbk: 05-24-2013 End: 42-47-9896Viusxq T Nelsen Jr Work Phone: rvA [place]Start: 04-26-2013 End: 78-17-1557OoulvfGordy Momin Jr Work Phone: [facility] [place]ontStart: 03-29-2013 End: 56-41-8085HwrepcGordy Momin Jr Work Phone: [facility] [place]ontStart: 02-01-2013 End: 60-41-4769IkehdtGordy Momin Jr Work Phone: [facility] [place]ontStart: 12-21-2012 End: 17-41-7869ZgwkaaGordy Momin Jr Work Phone: [facility] [place]ontStart: 11-02-2012 End: 41-05-6284Wyxicx outpatient visit 15 minutesPhijose ramon Momin Jr Work Phone: [facility] [place]ontStart: 10-05-2012 End: 12-13-3194Srblnd outpatient visit 15 minutesGordy Momin Jr Work Phone: [facility] [place]ontStart: 08-31-2012 End: 46-50-2269Naymam outpatient visit 15 minutesPhijose ramon Momin Jr Work Phone: [facility] [place]ontStart: 08-25-2012 End: 10-55-7208Lpdyeq T Nelsen Jr Work Phone: [facility] [place] Procedures DateProcedureProcedure DetailPerforming ClinicianStart: 00-17-2423Myfqhhih screenVENU BOMMANAComment on above:Performed By: #### TSC ####[facility] ([facility])[address] [place] [address] VIRStart: 54-63-6486Jtauwmdw screenVENU BOMMANAComment on above:Performed By: #### TSC ####[facility] ([facility])[address] [place] [address] VIRStart: 93-66-2012Ihkhbqfz screenVENU BOMMANAComment on above:Performed By: #### TSC ####[facility] ([facility])[address] [place] [address] VIRStart: 58-47-6661Pbsxo depression screening assessmentDennis Melvindale DO Work Phone: Start: 41-19-6716Lnfhq hip unilateral with pelvis 2-3 viewsJoie FRIEND Work Phone: Start: 67-78-8389IZZSVNH GLUCOSEFelix Hallman MD Work Phone: Start: 82-39-1759NXYDRES Angy Hallman MD Work Phone: Start: 90-45-4332OAXAWHB Angy Hallman MD Work Phone: Start: 84-86-1371Xyaoqodjtokwl metabolic panelFelix Hallman MD Work Phone: Start: 87-71-1941YDQMLVA Angy Hallman MD Work Phone: Start: 20-80-2780RKZQOOL Angy Hallman MD Work Phone: Start: 29-13-4773OHXYXBI Angy Hallman MD Work Phone: Start: 06-04-2845VOLGKTE Angy Hallman MD Work Phone: Start: 89-14-9831Itcsdmpbgsclh metabolic panelFelix Hallman MD Work Phone: Start: 34-84-3316OUCEGPV Angy Hallman MD Work Phone: Start: 79-05-0546JCIADDU Angy Hallman MD Work Phone: Start: 28-44-6158Gtudbpzkgv exam abdomen 1 viewRachel Ragle BRUSH WORKER-SEWER CONNECTOR Work Phone: Start: 11-71-9250AQZHTRV Angy Hallman MD Work Phone: Start: 17-96-7368CTGHZQA Angy Hallman MD Work Phone: Start: 37-96-1240Dwmchdpxgwdgh metabolic panelFelix Hallman MD Work Phone: Start: 79-66-5389PWTTLQL Angy Hallman MD Work Phone: Start: 00-16-2856Ceaxj of phosphorus inorganicFelix Hallman MD Work Phone: Start: 17-79-3337BOJXZ OXIMETRY, SPOTFelix Hallman MD Work Phone: Start: 06-25-9218Jdpfdgaqkq examination pelvis 1/2 Mariana FRIEND Work Phone: Start: 60-48-3281Yreof depression screening assessment Vj Cobosinder BRUSH WORKER-[facility] Work Phone: Start: 10-60-2987YYFOEER Angy Hallman MD Work Phone: Start: 85-61-2250Abvzfmdqdhkcs metabolic panelTaeler [facility] Work Phone: Start: 83-74-4486NGUTF TUBESRuqinena Hallman MD Work Phone: Start: 06-95-4986VITBF TUBES SST TOPRujazmin Hallman MD Work Phone: Start: 71-40-4937YKTCELD Angy Hallman MD Work Phone: Start: 22-23-8511Bbaer of magnesiumKyhope Gray BRUSH WORKER-[facility] Work Phone: Start: 90-55-6481VAXVACC Angy Hallman MD Work Phone: Start: 25-65-2648Ts head/brain w/o contrast material Vj Gray BRUSH WORKER-[facility] Work Phone: Start: 23-02-4885ZHUEVNR Angy Hallman MD Work Phone: Start: 05-14-2025 End: 10-54-7496Ldbqpxkgexizw metabolic panelTaeler Aidan BRUSH WORKER-[facility] Work Phone: Start: 63-01-7746KGRFKUG GLUCOSEThania Martinez MD Work Phone: Start: 31-17-5177Oxjdt count hemoglobinTaeler Aidan BRUSH WORKER-[facility] Work Phone: Start: 34-89-7728ZDRYA TUBESThania Martinez MD Work Phone: Start: 16-31-7737SJSSM TUBES PST TOPJadavionutradha Martinez MD Work Phone: Start: 27-65-0642BPQMCEQ GLUCOSEJesse A Park DO Work Phone: [phone]: 24-21-7293Dk lower extremity w/o contrast materialRachel D Charlesfilipe BRUSH WORKER-SEWER CONNECTOR Work Phone: start: 92-62-3169Ztsbv of troponin quantitativeRachel D Charlesfilipe BRUSH WORKER-SEWER CONNECTOR Work Phone: start: 21-73-7650GM ED CRITICAL CARERachel D Karfilipe BRUSH WORKER-[facility] Work Phone: start: 27-86-9956Wjzmp gases any combination ph pco2 po2 co2 qgq9Zrvim A ideeli Work Phone: [phone]: 35-17-3732OMOMJ TUBESJesse A InCrowd DO Work Phone: [phone]: 14-54-1653OOSOG TUBES BLUE TOPJesse A InCrowd DO Work Phone: Start: 05-13-2025 End: 59-24-7922Zkutbyg bacterial blood aerobic w/id isolatesRachel D Charlesfilipe BRUSH WORKER-[facility] Work Phone: start: 48-92-9153L-reactive proteinRachel D Charlesfilipe BRUSH WORKER-SEWER CONNECTOR Work Phone: start: 05-13-2025 End: 33-22-7551Wlzbigjkvyief metabolic panelRachel D Charlesfilipe BRUSH WORKER-SEWER CONNECTOR Work Phone: start: 39-94-3307Clxjhglrsx exam chest single view Jazmine D Charlesrenafilipe BRUSH WORKER-[facility] Work Phone: start: 16-33-4624Mvn routine ecg w/least 12 lds trcg only w/o i&rRachel D Charlesrenafilipe BRUSH WORKER-SEWER CONNECTOR Work Phone: start: 94-25-6462Fsrtx depression screening assessment Pam Stinson APRN-SEWER CONNECTOR Work Phone: Start: 97-73-6395Bxylv metabolic panel calcium total Delgado Leahy MD Work Phone: Start: 01-18-2025 End: 96-60-7436Nmhhtmatywl injectionSameer Al [facility] MDStart: 01-18-2025 End: 41-92-1266Jpjrutncuong ophthalmic imaging retinaSameer Al [facility] MDStart: 66-56-5966Cunbxl Photos No ChargeMichael PetersenStart: 01-18-2025 End: 49-32-1500Doaglb Photos No Charge BilateralSameer Al [facility] MDStart: 01-18-2025 End: 91-81-7478Pebrnkbzwbzj njx pharmacologic agt spxSameer Al [facility] MDStart: 98-87-3801Mugye depression screening assessmentTresakyara Stinson [facility] Work Phone: Start: 47-91-0390Bxcfqn-up visitFollow-upROBERT D GRANDEStart: 47-23-4152Xaagt depression screening assessmentMaddie Givens RN Work Phone: Start: 18-76-4611Mepag depression screening assessment Pam Stinson [facility] Work Phone: Start: 71-37-4146Sfrjhf-up visitFollow-upPAM STINSONStart: 34-57-8371Jvkxz depression screening assessmentInated Stinson [facility] Work Phone: Start: 80-09-8400Qlxby depression screening assessment Pam Stinson [facility] Work Phone: Start: 05-64-1067Utnvw depression screening assessment Rosario Strong RNStart: 41-20-5540Luxhh dip stick/tablet rgnt non-auto w/o micrscp Pam Estrella Av [facility] Work Phone: Start: 00-21-8376Tnpmx depression screening assessment Pam Stinson [facility] Work Phone: Start: 33-49-7615Hivoh depression screening assessment Pam Stinson [facility] Work Phone: Start: 33-25-2390Imrji depression screening assessment Rosario Strong RNStart: 70-73-5605Unxrqpsun rspse spmtry pre&post-brncdilat admn 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 [facility] Work Phone: Start: 81-13-7516Gd angiography chest w/contrast/noncontrastMarianne Jeff Blair BRUSH WORKER - [facility] Work Phone: Start: 07-84-9691Emgihjh blood reagent stripGeorges Doe MD Work Phone: Start: 22-99-7259Xznbzac blood reagent Walter Doe MD Work Phone: Start: 42-23-1512Zbrkrco blood reagent stripGeorges Doe MD Work Phone: Start: 74-87-4414Pfjmkqe blood reagent stripGeorges Doe MD Work Phone: Start: 55-86-2664Mplbh metabolic panel calcium total Rita Leos [facility] Work Phone: Start: 75-65-3552Vovdxduq screenGeorges Doe MD Work Phone: Start: 12-10-2022 End: 40-92-3426Nulpwxn blood reagent stripGeorges Doe MD Work Phone: Start: 12-09-2022 End: 03-78-5532Vaiwq count hemoglobinGeorges Doe MD Work Phone: Start: 55-14-1616Wypcull blood reagent stripGeorges Doe MD Work Phone: Start: 12-09-2022 End: 23-91-7612Lxktgqftgft of packed red blood cellsRadha Moya [facility] Work Phone: start: 72-66-2603Otcebbg blood reagent stripGeorges Doe MD Work Phone: Start: 91-75-6234BCZQO METABOLIC PANEL W/ REFLEX TO MG FOR LOW KKritioscar SparksDavin MDStart: 12-09-2022 End: 88-71-4500Nyglc count hemoglobinKrlorraine Sparksthra MDStart: 50-62-7602Xewisev blood reagent stripGeorges Doe MD Work Phone: Start: 00-29-2994Mmmcx count hemoglobinHemfariba Trejo MD Work Phone: Start: 25-09-6787Cvzzemf blood reagent Walter Doe MD Work Phone: Start: 16-65-9322Dqnmw count Kalpesh Doe MD Work Phone: Start: 32-64-0701HOWTL METABOLIC PANEL W/ REFLEX TO MG FOR LOW Arabella Velasquez MD Work Phone: Start: 32-36-3579AEKVAXWE REJECTIONMoreinier Velasquez MD Work Phone: Start: 12-08-2022 End: 21-98-8207Nyork count Kalpesh Doe MD Work Phone: Start: 12-08-2022 End: 28-18-4010Exxivxnqkpj of packed red blood cellsLexx Franklin MD Work Phone: Start: 25-26-8276Vrdyy count hemoglobinMuniko Franklin MD Work Phone: Start: 36-37-8593Aldvo metabolic panel calcium total Nadira Davin MDStart: 12-07-2022 End: 35-58-0858Moviv count Kalpesh Doe MD Work Phone: Start: 48-31-5255Afflmfi blood reagent Walter Doe MD Work Phone: Start: 12-07-2022 End: 06-60-0140Rauyppfqail of packed red blood cellsGeorges Doe MD Work Phone: Start: 68-33-6990Cnp-scan lxtr art/artl bpgs uni/lmtd Jaiden Martinez MD Work Phone: Start: 12-07-2022 End: 03-07-2400Rqpfy count hemoglobinGeorges Doe MD Work Phone: Start: 39-93-4586Hiplt typing serologic aboGeorges Doe MD Work Phone: Start: 65-19-1509Diggzwblngo time activatedGeorges Doe MD Work Phone: Start: 44-72-8689Mapwnue catheterizationKritika Davin MDStart: 98-12-1442Ntfaaqxm [Moles/volume] in Serum or PlasmaGeorges Doe MD Work Phone: Start: 66-17-4322QGOIHADNJL W/GFR POINT OF CAREGeorges Doe MD Work Phone: Start: 25-49-1129Etvl bld gluc mntr dev cleared fda spec home useGeorges Doe MD Work Phone: Start: 88-12-7959Vkycmmveh [Moles/volume] in Serum or PlasmaGeorges Doe MD Work Phone: Start: 73-79-0290Gqxqin [Moles/volume] in Serum or PlasmaGeorges Doe MD Work Phone: Start: 47-87-1527Gxztbqzm [Moles/volume] in Serum or PlasmaSyed Omar Jha MD Work Phone: Start: 71-97-9861AWUGQLXIIO W/GFR POINT OF CARESyded Omar Jha MD Work Phone: Start: 11-24-2022 End: 43-41-3767Nvbs bld gluc mntr dev cleared fda spec home useSyed Omar Jha MD Work Phone: Start: 27-26-9293Rayamnfxk [Moles/volume] in Serum or PlasmaSyed Omar Jha MD Work Phone: Start: 05-98-4560Xurtgz [Moles/volume] in Serum or PlasmaSyed Omar Jha MD Work Phone: Start: 34-21-9700Umfvd of blood/uric acidSri Jarrett BRUSH WORKER - SEWER CONNECTOR Work Phone: Start: 05-24-2013 End: 53-87-3548Gtcqbrpr Dilated ExamSameer Al Bessie MDStart: 05-24-2013 End: 14-08-3808Bxljf medical xm&eval intermediate estab ptSameer Bhavik La MD Start: 04-26-2013 End: 08-07-2992Xganjbcf Dilated ExamSameer Al Bessie MDStart: 04-26-2013 End: 64-86-2113Jtltplenvmqx njx pharmacologic agt spxSgeorges Villar MDStart: 04-26-2013 End: 87-95-8598Itvmo medical xm&eval intermediate estab ptSameer Bhavik La MD Start: 04-26-2013 End: 98-67-4227Mbbooddxvpx injectionSameer Al Bessie MDStart: 03-29-2013 End: 32-05-5735Uvumcjkq Dilated ExamSameer Al Bessie MDStart: 03-29-2013 End: 20-02-2665Amoiwyxgexpm njx pharmacologic agt spxSgeorges Villar MDStart: 03-29-2013 End: 92-47-1273Kvlzj medical xm&eval comprhnsv estab pt 1/>Kendall Villar MD Start: 03-29-2013 End: 36-29-7002Oqkjemyvgiu injectionSameer Al Bessie MDStart: 02-01-2013 End: 06-94-2570Jfqagxkdgrsn njx pharmacologic agt spxSameweston Villar MDStart: 02-01-2013 End: 11-01-4375Swkfo medical xm&eval intermediate estab ptSameweston Villar MD Start: 02-01-2013 End: 62-86-0477Drxvqnwszvx injectionSameer Al Bessie MDStart: 12-21-2012 End: 56-95-9913Qsfjiymaaflp njx pharmacologic agt spxSameer Al Bessie MDStart: 12-21-2012 End: 33-34-6346Snhdq medical xm&eval comprhnsv estab pt 1/>Kendall Villar MD Start: 12-21-2012 End: 00-67-8336Ognpaqvbuxx injectionSameer Al Bessie MDStart: 11-02-2012 End: 70-23-2969Evyvmewdgbuh ophthalmic imaging retinaSameer Al Beverleytai MDStart: 11-02-2012 End: 68-92-9948Jniwxklqtxxw njx pharmacologic agt spxSameer Al Bessie MDStart: 11-02-2012 End: 81-88-2395Hwcybzkgtlg injectionSameer Al Bessie MDStart: 10-05-2012 End: 42-02-2492Qeyualvczrxc ophthalmic imaging retinaSameer Al Beverleytai MDStart: 10-05-2012 End: 74-60-1038Eworvopzfmvd njx pharmacologic agt spxSameer Al Beverleytai MDStart: 10-05-2012 End: 08-74-2673Ejvwjbabolq injectionSameer Al Beverleytai MDStart: 08-31-2012 End: 44-94-9554Fhwbexlctpzt ophthalmic imaging retinaSameer Al deondre MDStart: 08-31-2012 End: 16-53-7546Iaovifemkaii njx pharmacologic agt spxSameer Al Bessie MDStart: 08-31-2012 End: 37-89-3930Timfuwwrtyq injectionSameer Bhavik La MD Plan of Treatment DateCare ActivityDetailAuthorStart: 69-82-3330Lcensvw ScreeningTobacco Screening [facility]: 32-52-0706Rgysbny ScreeningTobacco Screening [facility] SystemStart: 75-91-5716Kjdckgi ScreeningTobacco Screening [facility]art: 75-01-9583Atmhrtw ScreeningTobacco Screening [facility]art: 48-99-4803Liqvcntxkh ScreeningDepression Screening [facility]: 31-94-2261Rkdyyzm ScreeningTobacco Screening [facility] SystemStart: 97-40-8304Lcqntgmodk ScreeningDepression Screening [facility]art: 87-82-9465Kgjc Risk ScreeningFall Risk Screening [facility]art: 28-13-6296Lhcfhpk ScreeningTobacco Screening [facility]art: 09-10-4485Nwueffffyo ScreeningDepression Screening [facility]: 93-48-3755Tqch Risk ScreeningFall Risk Screening [facility] SystemStart: 95-43-6473Alvtleu ScreeningTobacco Screening [facility] SystemStart: 54-64-0496Qbhobsw ScreeningTobacco Screening [facility]art: 40-41-3915Gekiaou ScreeningTobacco Screening [facility]art: 21-92-8086Ewrslkt ScreeningTobacco Screening [facility]: 71-36-3106Zatzcok ScreeningTobacco Screening [facility]art: 43-39-6249Kzcq Risk ScreeningFall Risk Screening [facility]htart: 11-15-7746Wmqexoy ScreeningTobacco Screening [facility]htart: 77-64-1259Cehyjew ScreeningTobacco Screening [facility]htart: 56-47-5139Rriaaoz ScreeningTobacco Screening [facility]htart: 67-58-8240Jdzwh screening for proteinDiabetes: Urine Protein ScreeningJohn J. Pershing VA Medical CenterStart: 66-53-0378Ecfqzpx ScreeningTobacco ScreeningBluffton Hospital SystemStart: 53-83-1088Jwljmdz ScreeningTobacco ScreeningBluffton Hospital SystemStart: 09-70-1580Aeysaoz ScreeningTobacco ScreeningBluffton Hospital SystemStart: 48-95-0369Gdchoixyav ScreeningDepression ScreeningBluffton Hospital SystemStart: 45-87-8326Iyof Risk ScreeningFall Risk ScreeningBluffton Hospital SystemStart: 64-62-2578Fqqidiq ScreeningTobacco ScreeningBluffton Hospital SystemStart: 18-61-3192Npqezaf ScreeningTobacco ScreeningBluffton Hospital SystemStart: 08-66-1793Xjxrnmp ScreeningTobacco ScreeningKettering Health Daytonca [facility] SystemStart: 17-56-0953Hcnfgtvuia ScreeningDepression ScreeningProPomerene Hospitalca [facility] SystemStart: 09-46-9941Mxxtlta ScreeningTobacco ScreeningProPomerene Hospitalca [facility] SystemStart: 10-03-2025 End: 75-42-7577Lzrixuj encounter fyhgckgsg30/19/2025 1:45 PM EST Office Visit [facility] [address] [place] [address] Ra Marinelli MD [address] [place] [address] [facility]/Trauma and Adult ReconstructionStart: 10-03-2025 End: 07-86-0577Xwwgyog encounter wvwaewbbi61/19/2025 9:45 AM EST Office Visit [facility] [address] [place] [id number] Ra Marinelli MD [address] [place] [address] [facility]/Trauma and Adult ReconstructionStart: 09-17-2025 End: 82-24-6138Qizmujt encounter quyycdxyc05/03/2025 2:15 PM EST Office Visit [facility] [address] [address] Tawny Engel MD [address] [place] [address] Irina Brunner MD [address] [place] [address] [facility] CardiologyStart: 09-14-2025 End: 81-22-7737Yfjhuvc encounter fmzjyzgfn58/31/2025 10:15 AM EDT Office Visit Stephany [facility]anda[facility] - Medical Oncology [address] [place] [address] Casimiro Muñoz MD [address] [place] [address] Stephany [facility] - Medical OncologyStart: 09-05-2025 End: 33-72-3769Qnobacu encounter hkguqlody08/22/2025 1:00 PM EDT Office Visit [facility] - Family Medicine [address] [place] [id number] Vj Gray, BRUSH WORKER-SEWER CONNECTOR [address] [facility] [address] [place] [address] [facility]: 09-03-2025 End: 43-32-9733Mpwacje encounter gtluymstl70/20/2025 8:00 AM EDT Office Visit [facility] [address] [id number] Tawny Engel MD [address] [place] [address] Whitney Miles, PA-C [address] [place] [address] [facility] CardiologyStart: 08-31-2025 End: 43-93-6246Xbwuyfj encounter wjpbxlyrp77/17/2025 11:00 AM EDT Appointment [facility] - [facility] [address] [place] [phone] [facility] [place] - Pet Imaging Start: 27-39-6718Kglla BMI ScreeningAdult BMI ScreeningBluffton Hospital System Start: 83-41-9440Wwxplkawok ScreeningDepression ScreeningBluffton Hospital System Start: 66-59-0681Unms Risk ScreeningFall Risk ScreeningBluffton Hospital System Start: 33-10-4620Arwgeig ScreeningTobacco ScreeningBluffton Hospital SystemStart: 12-73-1397Wynzz BMI ScreeningAdult BMI ScreeningBluffton Hospital SystemStart: 91-77-7950Xbcgzje ScreeningTobacco ScreeningBluffton Hospital SystemStart: 08-22-2025 End: 97-79-7265WA Femur - left 2 ViewsX-ray femur left 2+ views Imaging Routine Lesion of left femur Expected: 08/22/2025, Expires: 08/22/2026Pro[facility] SystemComment on above:Expected: 08/22/2025, Expires: 08/22/2026Start: 08-22-2025 End: 75-13-0309FN Femur - right 2 ViewsX-ray femur right 2+ views Imaging Routine 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 Expected: 08/22/2025, Expires: 08/22/2026[facility] Work Phone: Comment on above:Expected: 08/22/2025, Expires: 08/22/2026Start: 08-22-2025 End: 03-61-4447Cnmffru encounter ezhcobcbl39/08/2025 9:45 AM EDT Office Visit [facility] Adult Reconstruction [address] [place] [address] Ra Marinelli MD [address] [place] [address] [facility]/Trauma and Adult ReconstructionStart: 08-20-2025 End: 02-42-5525Ufjvjon encounter tsbabefzi79/06/2025 1:00 PM EDT Office Visit [facility] Card[facility] [address] [place] [address] Tawny Engel MD [address] [place], [place] [phone] [facility] CardiologyStart: 08-14-2025 End: 27-95-5255ON Femur - right 2 ViewsX-ray femur right 2+ views Imaging Routine 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, subsequent encounter Expected: 08/14/2025, Expires: 08/14/2026 [facility] Work Phone: Comment on above:Expected: 08/14/2025, Expires: 08/14/2026Start: 37-36-3014Ejdds BMI ScreeningAdult BMI ScreeningBluffton Hospital SystemStart: 96-91-7838Bdsehti ScreeningTobacco ScreeningProKettering Health Main Campustart: 08-06-2025 End: 05-43-5507Nwahlrrrd to same day surgery dzjmie6808/06/2025 7:30 AM EDT - 08/06/2025 9:45 AM EDT Surgery [address] [place] [phone] Ra Marinelli MD [address] [place] [address] INSERTION INTRAMEDULLARY NAIL FEMUR [05934 (CPT )][facility] Comment on above:INSERTION INTRAMEDULLARY NAIL FEMUR [79205 (CPT )]Start: 08-06-2025 End: 97-28-0366Paxqd tx n/p/pltwr w/wo methylmethacrylate femurINSERTION INTRAMEDULLARY NAIL FEMUR Lesion of left femur 08/06/2025 7:30 AM EDTTOLEDO SURGERYStart: 94-61-0241Ocdttrdsiz hospital visit by nyqtsfdsd15/22/2025 7:30 AM EDT Hospital Encounter [address] [place] [phone] Ra Marinelli MD [address] [place] [address] [facility] Surgery Start: 08-01-2025 End: 36-38-7882Hhkqorx encounter fsfyvlgbq42/17/2025 1:15 PM EDT Office Visit [facility] Adult Reconstruction [address] [place] [address] Ra Marinelli MD [address] [place] [address] [facility]/Trauma and Adult ReconstructionStart: 07-30-2025 End: 89-89-0549Lxfhixi encounter poltcoqvo59/15/2025 9:15 AM EDT Office Visit [facility]Trauma [facility] Adult Reconstruction [address] [place] [phone] Ra Marinelli MD [address] [place] [address] [facility]opedics/Trauma and Adult ReconstructionStart: 90-91-7679Dxfmpbxzn vaccinationBluffton Hospital SystemStart: 07-12-2025 End: 53-00-3736Ddreo metabolic 2000 panel - Serum or PlasmaBasic Metabolic Panel Lab Routine Intractable nausea and vomiting Type 2 diabetes mellitus without c omplication, without long-term current use of insulin ([facility]) Generalized weakness Expected: 07/12/2025 (Approximate), Expires: 07/05/2026[facility] Work Phone: Comment on above:Expected: 07/12/2025 (Approximate), Expires: 07/05/2026Start: 07-12-2025 End: 43-50-0394ZGU W Auto Differential panel - BloodCBC auto differential Lab Routine Iron deficiency anemia due to chronic blood loss Expected: 07/12/2025 (Approximate), Expires: 07/05/2026[facility] Hospital SystemComment on above: Expected: 07/12/2025 (Approximate), Expires: 07/05/2026Start: 07-12-2025 End: 13-48-1938Ehelzvafy [Mass/volume] in Serum or PlasmaMagnesium Lab Routine Hypomagnesemia Expected: 07/12/2025 (Approximate), Expires: 07/05/2026[facility] SystemComment on above:Expected: 07/12/2025 (Approximate), Expires: 07/05/2026Start: 07-10-2025 End: 76-31-6631Wicxcwg encounter procedureNOMS FB ORTHOPAEDICSStart: 06-28-2025 Tobacco ScreeningTobacco ScreeningBluffton Hospital SystemStart: 06-26-2025 Bacteria identified in Urine by CultureUrine CultureChildren's Hospital of Columbustart: 02-22-6477Ufoaz cultureChildren's Hospital of Columbustart: 72-15-2515Evdzg BMI ScreeningAdult BMI ScreeningBluffton Hospital SystemStart: 74-82-0310Wqksmbx ScreeningTobacco ScreeningProBarney Children'S Medical Center SystemStart: 30-10-9591Qitgacmngi ScreeningDepression ScreeningProBarney Children'S Medical Center SystemStart: 13-99-0756Uhqo Risk ScreeningFall Risk ScreeningNovant Health, Encompass Healthtart: 06-06-2025 End: 59-77-8613Kjsvubq encounter ovqtucrdi32/23/2025 1:30 PM EDT Office Visit [facility] [address] [place] [address] Joie Echavarria PA [address] [place] [place] [address] Acute right hip pain (Primary Dx)[facility] FB ORTHOPAEDICSComment on above:Acute right hip pain (Primary Dx)Start: 05-22-2025 End: 13-35-7616Mylns metabolic 2000 panel - Serum or PlasmaBasic Metabolic Panel Lab Routine Type 2 diabetes mellitus with hypoglycemia without coma, with long- term current use of insulin ([facility]) Expected: 05/22/2025 (Approximate), Expires: 05/15/2026[facility] Work Phone: Comment on above:Expected: 05/22/2025 (Approximate), Expires: 05/15/2026Start: 05-03-2025 End: 71-66-5416Ijyurmz encounter kteiyzdoy12/19/2025 2:15 PM EDT Office [facility] - Medical Oncology [address] [place] [phone] Casimiro Muñoz MD [address] [place] [address] [address] [place] [address] Stephany Trice [facility] - Medical OncologyStart: 67-66-5805Qctic BMI ScreeningAdult BMI ScreeningProBarney Children'S Medical Center SystemStart: 16-58-4064Ajlotlukyr ScreeningDepression ScreeningProBarney Children'S Medical Center SystemStart: 78-91-3424Gkzz Risk ScreeningFall Risk ScreeningProBarney Children'S Medical Center SystemStart: 44-07-8947Bnmdnac ScreeningTobacco ScreeningProBarney Children'S Medical Center SystemStart: 04-10-2025 End: 73-94-2320Npbwzxe encounter vdlxuphyc84/27/2025 3:20 PM EDT Office Visit [facility] - Family Medicine [address] [place] [address] Pam Stinson, BRUSH WORKER-SEWER CONNECTOR [address] [place] [address] [facility] - [facility] MedicineStart: 04-04-2025 End: 26-33-6029Dspxajp encounter dipohehem54/21/2025 9:00 AM EDT Office Visit [facility] - Family Medicine [address] [place] [address] Pam Stinson, BRUSH WORKER-SEWER CONNECTOR [address] [place] [address] [facility] - [facility] MedicineStart: 04-03-2025 End: 22-70-1346ndrwubjodf60/20/2025 8:00 AM EDT Infusion Stephany Trice [facility] - Medical Oncology [address] [place] [phone] Steph[facility] Medical OncologyStart: 04-01-2025 End: 46-74-8147hijckpkksu29/18/2025 8:00 AM EDT Infusion [facility] - Medical Oncology [address] [place] [address], [place] [phone] Stephany [facility] - Medical OncologyStart: 03-30-2025 End: 71-25-6464utnhefqjvm49/16/2025 8:00 AM EDT Infusion Stephany Landvaerde [facility] - Medical Oncology [address] [place] [address] Stephany [facility] - Medical OncologyStart: 03-28-2025 End: 56-59-1183gygzqfmjvk26/14/2025 8:30 AM EDT Infusion [facility] - Medical Oncology [address] [place] [address] Stephany [facility] - Medical OncologyStart: 03-26-2025 End: 28-65-0092tqqkqzkkfzMyfrrjd L Kern [facility] - Medical OncologyStart: 03-24-2025 End: 99-66-7455zsmlmmpvcl67/10/2025 8:00 AM EDT Infusion [facility] - Medical Oncology [address] [place] [address] Stephany [facility]andaver[facility] - Medical OncologyStart: 03-22-2025 End: 01-89-7450gdrnpsquea31/08/2025 8:30 AM EDT Infusion Stephany [facility]andaver[facility] - Medical Oncology [address] [place] [address] Stephany [facility]andaverde [facility] - Medical OncologyStart: 03-20-2025 End: 75-94-2244qjbdfhwfnb85/06/2025 8:00 AM EDT Infusion Stephany [facility]andaver[facility] - Medical Oncology [address] [place] [phone] Stephany [facility]ver[facility] - Medical OncologyStart: 03-18-2025 End: 69-87-0496prmypkzbaaWdsammm L Kern [facility] - Medical OncologyStart: 03-16-2025 End: 95-11-0835ygpivhdsipFutgkca L Kern [facility] - Medical OncologyStart: 03-14-2025 End: 24-15-0997unujpljkhtErgglke L Kern [facility] - Medical OncologyStart: 03-12-2025 End: 75-60-5477haktkiokin27/28/2025 8:00 AM EDT Infusion Stephany Landaverde [facility] - Medical Oncology [address] [place] [phone] Stephany [facility]andaverde [facility] - Medical OncologyStart: 14-98-1378Yhtiu BMI ScreeningAdult BMI ScreeningProBarney Children'S Medical Center SystemStart: 58-89-9470Fbaulgg ScreeningTobacco ScreeningProBarney Children'S Medical Center SystemStart: 08-34-3165Crbglfglkh A1c measurementDiabetes: Hemoglobin V0DWAHHJohn J. Pershing VA Medical CenterStart: 68-21-2911Ctmythqgxj ScreeningDepression ScreeningProKettering Health Main Campustart: 22-80-7159Otbr Risk ScreeningFall Risk ScreeningProKettering Health Main Campustart: 03-01-2025 End: 69-56-3602Gcypphf encounter okknwnmmg24/17/2025 2:00 PM EDT Appointment [facility] - Mammography/DEXA Imaging [address] [place] [address] Casimiro Muñoz MD [address] [place] [address] [facility] - Mammography/DEXA ImagingStart: 25-65-6188Lhauk, Roberta 4 Weeks IO AVN OS(2-3) NO OCTCVP Physicians Work Phone: Start: 78-11-6228Xfbbz BMI Follow Up PlanAdult BMI Follow Up PlanNovant Health, Encompass Healthtart: 01-25-2025 End: 55-91-0260Sjarwyd encounter zmsdyuiig97/13/2025 2:15 PM EDT Office Visit Stephany [facility]andaver[facility] - Medical Oncology [address] [place] [phone] Casimiro Muñoz MD [address] [place] [address] [facility] L [facility] - Medical OncologyStart: 01-22-2025 End: 89-87-8479Bbngmys encounter saaveegyc47/10/2025 1:40 PM EDT Office Visit [facility] - Family Medicine [address] [place] [address] Pam Stinson, BRUSH WORKER-SEWER CONNECTOR [address] [place] [address] [facility] Internal Medicine - Family MedicineStart: 17-08-3734Xshuiyd cessation educationTobacco cessation counselingST. LAWRENCE [facility]ALTH SYSTEM PhysiciansStart: 65-38-6325Joiiv BMI Follow Up PlanAdult BMI Follow Up PlanBluffton Hospital SystemStart: 12-15-2024 Adult BMI ScreeningAdult BMI ScreeningProBarney Children'S Medical Center SystemStart: 12-15-2024 Depression ScreeningDepression ScreeningBluffton Hospital SystemStart: 12-15-2024 Fall Risk ScreeningFall Risk ScreeningProBarney Children'S Medical Center SystemStart: 12-15-2024 Tobacco ScreeningTobacco ScreeningProBarney Children'S Medical Center SystemStart: 11-28-2024 End: 36-93-4959Qzxhuic encounter oypxjmgcz30/14/2025 2:40 PM EST Office Visit [facility] - Family Medicine [address] [place] [address] Pam Stinson, BRUSH WORKERSEWER CONNECTOR [address] [place] [address] [facility] - [facility] MedicineStart: 44-52-1962Lmixp BMI ScreeningAdult BMI ScreeningProBarney Children'S Medical Center SystemStart: 11-24-2024 End: 27-33-2962Hgwwgcc encounter quswssxli88/10/2025 2:15 PM EST Office Visit [facility] Card[facility] [address] [place] [phone] Radha Moran MD [address] [place] [address] [facility] Physicians CardiologyStart: 11-22-2024 End: 45-21-7684Hnhjwcj encounter vrxyvknnk88/08/2025 2:40 PM EST Office Visit [facility] Internal Medicine - Family Medicine [address] [place] [phone] Pam Stinson, BRUSH WORKER-SEWER CONNECTOR [address] [place] [phone] [facility]icians Internal Medicine - Family MedicineStart: 81-56-3565Vndguup Screening Tobacco ScreeningProKettering Health Main Campustart: 09-13-2024 End: 59-19-9855Ozzjkkp encounter oxjowthuc34/30/2024 2:00 PM EDT Appointment [facility] - Cardiovascular [address] [place] [phone] Health [facility] - [facility] Start: 09-08-2024 End: 34-47-4889Gqwszyl encounter /25/2024 2:15 PM EDT Office Visit [facility]ph[facility] L [facility] - Medical Oncology [address] [place] [phone] Casimiro Muñoz [place] [address] [place] [address] [address] [place], [place] [phone] Stephany Carnes [facility] - Medical OncologyStart: 09-08-2024 End: 04-99-9717ACD W Auto Differential panel - BloodCBC auto differential Lab Routine Malignant neoplasm of upper-outer quadrant of right female breast, unspecified estrogen receptor status (CMS-HCC) Malignant neoplasm of upper-outer quadrant of rightbreast in female, estrogen receptor positive (CMS-HCC) Expected: 09/08/2024 (Approximate), Expires:03/09/2025[facility] Comment on above:Expected: 09/08/2024 (Approximate), Expires: 03/09/2025Start: 09-08-2024 End: 86-01-1742Xnoeooazvomrh metabolic 2000 panel - Serum or PlasmaComprehensive metabolic panel Lab Routine Malignant neoplasm of upper-outer quadrant of right female breast, unspecified estrogen receptor status (CMS-HCC) Malignant neoplasm of upper-outer quadrant of right breast in female, estrogen receptor positive (CMS-HCC) Expected: 09/08/2024 (Approximate), Expires: 03/09/2025 [facility] SystemComment on above:Expected: 09/08/2024 (Approximate), Expires: 03/09/2025Start: 72-58-8617Vftob BMI Follow Up PlanAdult BMI Follow Up PlanBluffton Hospital SystemStart: 15-97-1878Czebvqrvsh ScreeningDepression ScreeningProBarney Children'S Medical Center SystemStart: 19-08-0806Ehmq Risk ScreeningFall Risk ScreeningNovant Health, Encompass Healthtart: 09-26-2024Medicare Annual Wellness (AWV) Medicare Annual Wellness (AWV)[facility] HealthcareStart: 09-26-2024Medicare Annual Wellness VisitMedicare Annual Wellness VisitNovant Health, Encompass Healthtart: 08-02-2024 End: 56-70-1209Uqzumtg encounter /18/2024 1:00 PM EDT Office Visit [facility] - Family Medicine [address] [place] [phone] Pam Stinson, BRUSH WORKER-SEWER CONNECTOR [address] [place] [address] [facility] Internal Medicine - Family MedicineStart: 93-63-5880Mwawsyjha vaccinationInfluenza VaccineBluffton Hospital SystemStart: 07-11-2024 End: 82-92-0082Qbchvgw encounter hnoxrfmkg59/27/2024 2:30 PM EDT Office Visit [facility] [address] [place] [phone] Luis Oliver MD [address] [place] [address], [address] [place], [place] [phone] [facility] NeurologyStart: 03-09-2024 End: 41-91-8082Oqdgqsj encounter hfzlxebmb36/25/2024 3:15 PM EDT Office Visit Stephany Carnes Cotton [facility] - Medical Oncology [address] [place] [address] Casimiro Muñoz MD [address] [facility] [address] [place] [address] Stephany Carnes Cotton [facility] - Medical OncologyStart: 03-09-2024 End: 73-16-9847TZ Breast DiagnosticMammography diagnostic bilateral with CAD Imaging Routine Malignant neoplasm of upper-outer quadrant of right female breast, unspecified estrogen receptor status (CMS-HCC) Malignant neoplasm of upper-outer quadrant of right breast in female, estrogen receptor positive (CMS- HCC) Expected: 03/09/2024, Expires: 03/09/2025[facility] Work Phone: Comment on above:Expected: 03/09/2024, Expires: 03/09/2025Start: 02-25-2024 End: 53-28-1031ZK Skull base to mid-thighPET CT skull to thigh Imaging Routine Malignant neoplasm of upper-outer quadrant of right female breast, unspecified estrogen receptor status (CMS-HCC) Malignant neoplasm of upper-outer quadrant of right breast in female, estrogen receptor positive (CMS-HCC) Expected: 02/25/2024, Expires: 11/25/2024[facility] Work Phone: Comment on above:Expected: 02/25/2024, Expires: 11/25/2024Start: 02-24-2024 End: 99-71-9099Ezazry antigen 15-3Cancer antigen 15-3 Lab Routine Malignant neoplasm of upper-outer quadrant of right female breast, unspecified estrogen receptor status (CMS-HCC) Malignant neoplasm of upper-outer quadrant of right br east in female, estrogen receptor positive (CMS-HCC) Expected: 02/24/2024 (Approximate), Expires: 11/25/2024ProPomerene HospitalSymphony Dynamo [facility] SystemComment on above: Expected: 02/24/2024 (Approximate), Expires: 11/25/2024Start: 02-24-2024 End: 99-11-8304Uhpoap antigen 27-29Cancer antigen 27-29 Lab Routine Malignant neoplasm of upper-outer quadrant of right female breast,unspecified estrogen receptor status (CMS-HCC) Malignant neoplasm of upper-outer quadrant of right b reast in female, estrogen receptor positive (CMS-HCC) Expected: 02/24/2024 (Approximate), Expires: 11/25/2024[facility] CenterComment on above: Expected: 02/24/2024 (Approximate), Expires: 11/25/2024Start: 02-24-2024 End: 91-77-9546AFD W Auto Differential panel - BloodCBC auto differential Lab Routine Malignant neoplasm of upper-outer quadrant of right female breast, unspecified estrogen receptor status (CMS-HCC) Malignant neoplasm of upper-outer quadrant of rightbreast in female, estrogen receptor positive (CMS-HCC) Expected: 02/24/2024 (Approximate), Expires:11/25/2024[facility] Comment on above:Expected: 02/24/2024 (Approximate), Expires: 11/25/2024Start: 02-24-2024 End: 93-12-8088Ickxyqyaidpmb metabolic 2000 panel - Serum or PlasmaComprehensive metabolic panel Lab Routine Malignant neoplasm of upper-outer quadrant of right female breast, unspecified estrogen receptor status (CMS-HCC) Malignant neoplasm of upper-outer quadrant of right breast in female, estrogen receptor positive (CMS-HCC) Expected: 02/24/2024 (Approximate), Expires: 11/25/2024 [facility] SystemComment on above:Expected: 02/24/2024 (Approximate), Expires: 11/25/2024Start: 01-13-2024 End: 76-23-4732Gjgpbke encounter dhkvyejtc43/29/2024 1:00 PM EST [facility] [address] [place] [phone] Pam Stinson, BRUSH WORKER-SEWER CONNECTOR [address] [place] [address] [facility] - Family [facility] Hospitaltart: 15-95-7413Aezfx panelLipids [facility]EN'SpaOnde [facility]ITALStart: 02-02-2023 End: 91-17-1948Nwinohe encounter /21/2023 Appointment IP UnitSTVZ Cath LabStart: 01-18-2023 End: 13-86-7792Zekrg metabolic 2000 panel - Serum or PlasmaBasic Metabolic Panel Lab STAT Severe aortic valve stenosis Expected: 01/18/2023, Expires: 01/14/2024 [facility] CHILDREN'SConferensum Phone: comment on above:Expected: 01/18/2023, Expires: 01/14/2024Start: 12-17-2022 End: 35-20-8391Wrypu metabolic 2000 panel - Serum or PlasmaBasic Metabolic Panel Lab Routine Severe aortic valve stenosis Expected: 12/17/2022, Expires: ON [facility] HOSPITALConferensum Phone: comment on above:Expected: 12/17/2022, Expires: 12/10/2023Start: 12-17-2022 End: 27-20-8295Bigrtnrwno and HematocritHemoglobin and Hematocrit Lab Routine Severe aortic valve stenosis Expected: 12/17/2022, Expires: 12/10/2023FORMERLY [facility] MEDICAL CENTERConferensum Phone: comment on above:Expected: 12/17/2022, Expires: 12/10/2023Start: 19-34-6322Gouhwc Wellness Visit (AWV)Annual Wellness Visit (AWV)[facility]ILDREN'SFitfullyVerplanck: 71-92-2876Tpqehbxlk vaccinationFlu vaccine (Season Ended)[facility] HospitalNourish Phone: start: 40-30-9147IYVWV-19 Vaccine (3 - Booster for Pfizer series)COVID-19 Vaccine (3 - Booster for Pfizer series)[facility]ILDREN'SFitfullyart: 16-38-0114FXRIJ-19 Vaccine (3 - Pfizer risk series)COVID-19 Vaccine (3 - Pfizer risk series)[facility] SystemStart: 65-17-8096Pxzjzpmd vaccine (1 of 2)Shingles vaccine (1 of 2)[facility]ITALStart: 54-36-0640Xwhmzwqccvtzqs of varicella zoster vaccineZoster (Shingles) Vaccine (1 of 2)[facility] Healthtart: 54-73-2931WLnM,Tdap and Td Vaccines (1 - Tdap)DTaP,Tdap and Td Vaccines (1 - Tdap)[facility] SystemStart: 72-50-3209DYrC/Tdap/Td vaccine (1 - Tdap)DTaP/Tdap/Td vaccine (1 - Tdap)[facility]ITALStart: 44-63-6720Dtjebvbru C screeningHepatitis C screenBON [facility] Hospitalart: 47-98-8189XUFCP-19 Vaccine (1)COVID-19 Vaccine (1) [facility] [employer] Phone: start: 91-87-3475Ejtdfytvos ScreenDepression ScreenBON [facility] Hospitalart: 45-21-8145Gsppzhde screeningDiabetes: Retinopathy ScreeningJohn J. Pershing VA Medical CenterStart: 54-78-8084Bwvjlgkszm measurementCreatinine monitoringNewark Hospital Sova Work Phone: start: 65-78-9971Dgxzzoqhy monitoringPotassium monitoringNewark Hospital Sova Work Phone: bacteria identified in Blood by Aerobe culture [employer] Work Phone: End: 28-19-5485Iedihkpi identified in Urine by CultureUrine culture (clean catch) Microbiology Routine Acute cystitis without hematuria 1 Occurrences star ting 02/09/2024 until 02/08/2025[facility] Work Phone: Comment on above:1 Occurrences starting 02/09/2024 until 5Basic metabolic 2000 panel - Serum or PlasmaBasic metabolic panel Lab Routine Staphylococcus aureus bacteremia with sepsis ([facility]) MRSA (methicillin resistant Staphylococcus aureus) 03/12/2025 8:20 AM EDUniversity Hospitals TriPoint Medical CenterBasic metabolic 2000 panel - Serum or PlasmaBasic metabolic panel Lab Routine Staphylococcus aureus bacteremia with sepsis ([facility]) MRSA (methi cillin resistant Staphylococcus aureus) 03/20/2025 9:02 AM EDT[facility] Work Phone: Basic metabolic 2000 panel - Serum or PlasmaBasic metabolic panel Lab Routine Staphylococcus aureus bacteremia with sepsis (CMS- HCC) MRSA (methicillin resistant Staphylococcus aureus) 04/03/2025 8:50 AM EDT N(i)² End: 79-42-2769Muokd Bank SpecimenBON [facility] Work Phone: comment on above:Once for 1 Occurrences starting 12/07/2022 until 12/07/2022 End: 39-09-0921Yfsjrv antigen 15-3Cancer antigen 15-3 Lab Routine Malignant neoplasm of upper-outer quadrant of right female breast, unspecified estrogen receptor status (CMS-HCC) every 3 months for 50 Occurrences starting 11/25/2023 until 11/25/2024ProPomerene HospitalStar.me SystemComment on above:every 3 months for 50 Occurrences starting 11/25/2023 until 11/25/2024 End: 37-86-8764Fscpwi antigen 15-3Cancer antigen 15-3 Lab Routine Malignant neoplasm of upper-outer quadrant of right breast in female, estrogen receptor positive (CMS-HCC) 1 Occurrences starting 01/15/2025 until 01/15/2026Pro[employer]our SystemComment on above:1 Occurrences starting 01/15/2025 until 01/15/2026 End: 11-91-7910Okveym antigen 27-29Cancer antigen 27-29 Lab Routine Malignant neoplasm of upper-outer quadrant of right female breast,unspecified estrogen receptor status (CMS-HCC) every 3 months for 50 Occurrences starting 11/25/2023 until 11/25/2024[facility] DaytonStar.me SystemComment on above:every 3 months for 50 Occurrences starting 11/25/2023 until 11/25/2024 End: 10-76-0054Sryifc antigen 27-29Cancer antigen 27-29 Lab Routine Malignant neoplasm of upper-outer quadrant of right breast in female, estrogen receptor positive (CMS-HCC) 1 Occurrences starting 01/15/2025 until 01/15/2026ProPomerene HospitalStar.me SystemComment on above:1 Occurrences starting 01/15/2025 until 01/15/2026 End: 97-82-8389Dlcfldkchwhgjoj and angiography procedure details panelCardiac Catheterization Cardiac Cath Routine One Time for 1 Occurrences starting 11/24/2022 until 11/24/2022ON [employer] Work Phone: Comment on above:One Time for 1 Occurrences starting 11/24/2022 until 11/24/2022 End: 49-58-3422Jcfavmovgxtpgjz and angiography procedure details panelCardiac Catheterization Cardiac Cath Routine One Time for 1 Occurrences starting 12/07/2022 until 12/07/2022ON [employer] Work Phone: comment on above:One Time for 1 Occurrences starting 12/07/2022 until 12/07/2022 End: 99-53-8329DWZ W Auto Differential panel - BloodCBC with auto diff Lab Routine Malignant neoplasm of upper-outer quadrant of right female breast, un specified estrogen receptor status ([facility]) every 3 months for 50 Occurrences starting 11/25/2023 until 11/25/2024[facility] Work Phone: Comment on above:every 3 months for 50 Occurrences starting 11/25/2023 until 11/25/2024 End: 72-16-4524OUS W Auto Differential panel - BloodCBC with auto diff Lab Routine Malignant neoplasm of upper-outer quadrant of right breast in female, estrogen receptor positive ([facility]) 1 Occurrences starting 01/15/2025 until 01/15/2026[facility] Work Phone: Comment on above:1 Occurrences starting 01/15/2025 until 6CBC W Auto Differential panel - BloodCBC with auto diff Lab Routine Staphylococcus aureus bacteremia with sepsis ([facility]) MRSA (methicillin resistant Staphylococcus aureus) 03/12/2025 8:20 AM [employer] CBC W Auto Differential panel - BloodCBC with auto diff Lab Routine Staphylococcus aureus bacteremia with sepsis ([facility]) MRSA (methicillin resistant Staphylococcus aureus) 03/20/2025 9:02 AM [employer] CBC W Auto Differential panel - BloodCBC with auto diff Lab Routine Staphylococcus aureus bacteremia with sepsis ([facility]) MRSA (methicillin resistant Staphylococcus aureus) 03/26/2025 9:44 AM [employer] Work Phone: CBC W Auto Differential panel - BloodCBC with auto diff Lab Routine Staphylococcus aureus bacteremia with sepsis ([facility]) MRSA (methicillin resistant Staphylococcus aureus) 04/03/2025 8:50 AM [employer] Total Lab Routine Staphylococcus aureus bacteremia with sepsis ([facility]) MRSA (methicillin resistant Staphylococcus aureus) 03/12/2025 8:20 AM [employer] Work Phone: ck PingTankCK Total Lab Routine Staphylococcus aureus bacteremia with sepsis ([facility]) MRSA (methicillin resistant Staphylococcus aureus) 04/03/2025 8:50 AM [employer] Work Phone: End: 56-61-4735Frefbdtohsehp metabolic 1999 panel - Serum or PlasmaComprehensive metabolic panel Lab Routine Malignant neoplasm of upper-outer quadrant of right female breast, unspecified estrogen receptor status ([facility]) every 3 months for 50 Occurrences starting 11/25/2023 until 11/25/2024[facility] Center[facility] System Comment on above:every 3 months for 50 Occurrences starting 11/25/2023 until 11/25/2024 End: 17-38-6895Bjwkmhjecvbet metabolic 1999 panel - Serum or PlasmaComprehensive metabolic panel Lab Routine Malignant neoplasm of upper-outer quadrant of right breast in female, estrogen receptor positive ([facility]) 1 Occurrences starting 01/15/2025 until 01/15/2026[employer] PairingsComment on above:1 Occurrences starting 01/15/2025 until 01/15/2026 End: 03-69-0166GG CARDIAC W C STC MORP CARD ONLYBON [employer] Work Phone: comment on above:1 Occurrences starting 01/13/2023 until 01/13/2023 End: 24-71-2331LXR 12 leadEKG 12 lead ECG Routine One Time for 1 Occurrences starting 12/07/2022 until 12/07/2022ON [employer] Work Phone: comment on above:One Time for 1 Occurrences starting 12/07/2022 until 12/07/2022Fingerstick glucose checksFingerstick glucose checks Point of Care Testing Routine Intractable nausea and vomiting Type 2 diabetes mellitus without complication, without long-term current use of insulin ([facility] Generalized weakness Ordered: 07/05/2025ProCartour SystemComment on above:Ordered: 07/05/2025Glucose [Mass/volume] in Serum or PlasmaPOCT glucose Point of Care Testing Routine 4X Daily (AC & HS) until discontinued starting 12/07/2022 [employer] Phone: comment on above:4X Daily (AC & HS) until discontinued starting 12/07/2022 End: 98-67-9783Rhvbfnfugy and HematocritHemoglobin and Hematocrit Lab STAT Post Transfusion Post Transfusion Post Transfustion for 1 Occurrences starting 12/09/2022 until 12/10/2022 [employer] Phone: comharm on above:Post Transfusion Post Transfusion Post Transfustion for 1 Occurrences starting 12/09/2022 until 12/10/2022Oxygen therapy [Minimum Data Set]Initiate Oxygen Therapy Protocol Respiratory Care Routine As Needed until discontinued starting 11/24/2022 [employer] Phone: comment on above:As Needed until discontinued starting 11/24/2022Oxygen therapy [Minimum Data Set]Initiate Oxygen Therapy Protocol Respiratory Care Routine As Needed until discontinued starting 12/07/2022 [employer] Phone: comqyjh on above:As Needed until discontinued starting 12/07/2022Oxygen therapy [Minimum Data Set]Initiate Oxygen Therapy Protocol Respiratory Care Routine As Needed until discontinued starting 12/07/2022 DacentecComment on above:As Needed until discontinued starting 12/07/2022 End: 41-13-5920YJOS Line RemovalPICC Line Removal Procedures Routine Staphylococcus aureus bacteremia with sepsis ([facility] 1 Occurrences starting 03/09/2025 until 03/09/2026[employer] Phone: Comment on above:1 Occurrences starting 03/09/2025 until 03/09/2026 End: 71-48-5155TIF CHEM8 INCLUDES CALC. ANION GAPPOC CHEM8 INCLUDES CALC. ANION GAP Point of Care Testing STAT One Time for 1 Occurrences starting 11/24/2022 until 11/24/2022 [employer] Phone: commkhg on above:One Time for 1 Occurrences starting 11/24/2022 until 11/24/2022 End: 41-94-3018VRP CHEM8 INCLUDES CALC. ANION GAPPOC CHEM8 INCLUDES CALC. ANION GAP Point of Care Testing STAT One Time for 1 Occurrences starting 12/07/2022 until 12/07/2022 [employer] Phone: comvkjq on above:One Time for 1 Occurrences starting 12/07/2022 until 12/07/2022 End: 07-64-7457KJPZALS RBC (CROSSMATCH), 1 UnitsPREPARE RBC (CROSSMATCH), 1 Units Blood Bank STAT Once for 1 Occurrences starting 12/07/2022 until 0 12/07/2022 [employer] Phone: Comslsi on above:Once for 1 Occurrences starting 12/07/2022 until 12/07/2022 End: 66-35-7285DPXZUUM RBC (CROSSMATCH), 1 UnitsPREPARE RBC (CROSSMATCH), 1 Units Blood Bank Routine Once for 1 Occurrences starting 12/08/2022 until 12/08/2022 [employer] Phone: Comcnxo on above:Once for 1 Occurrences starting 12/08/2022 until 12/08/2022 End: 70-43-2908XVVEKTW RBC (CROSSMATCH), 1 UnitsPREPARE RBC (CROSSMATCH), 1 Units Blood Bank Routine Once for 1 Occurrences starting 12/09/2022 until 12/09/2022 [employer] Phone: comuzpp on above:Once for 1 Occurrences starting 12/09/2022 until 12/09/2022 End: 72-81-9866RDATBGON SPECIMENBON [employer] Phone: comment on above:Once for 1 Occurrences starting 12/08/2022 until 12/08/2022 Immunizations Immunization DateImmunizationNotesCare EwgrqppjQnuoayqe92-06-0886Xmnnbxql trivalent influenza vaccine, adjuvanted, preservative freeValerie Stinson BRUSH WORKER-SEWER CONNECTOR Work Phone: [facility] [phone], In Clinic,; Translations: [Drug or medicament (substance)]Pam Stinson BRUSH WORKER-SEWER CONNECTOR Work Phone: [facility] CenterTuyjzp38-53-4599rgyinxdrn virus vaccine, unspecified [facility]06-10-2024 tuberculin skin test; unspecified formulationMer[facility] Hospital05-29-2024tuberculin skin test; unspecified formulation[facility]09-26-2023Influenza Vaccine, Quadrivalent, Adjuvanted Rosario [facility]09-26-2023influenza virus vaccine, unspecified formulation[facility]05-30-2023 tuberculin skin test; unspecified formulationMer[facility]05-23-2023tuberculin skin test; unspecified formulationSouth [facility]09-22-2022Influenza Vaccine, Quadrivalent, Adjuvanted [facility]10-13-2021influenza, high dose seasonal, preservative-freeH[facility] Hospital07-14-2021pneumococcal conjugate vaccine, 13 valentAngela [facility]03-23-2021 COVID-19, mRNA, LNP-S, PF, 30mcg/0.3mL DoseH[facility] Hospital02-23-2021COVID-19, mRNA, LNP-S, PF, 30mcg/0.3mL DoseMer[facility]One [facility]01-11-2021influenza, injectable, quadrivalent, preservative freeH[facility] Hospital10-16-2020Influenza, High-dose, QuadrivalentH[facility] Hospital07-02-2020 pneumococcal polysaccharide vaccine, 23 valentMercy [facility] Hospital06-26-2020tuberculin skin test; unspecified formulationSouth [facility]10-31-2019influenza, injectable, quadrivalent, contains preservativeAngela [facility]10-28-2019influenza, injectable, quadrivalent, preservative freeAngela [facility]10-17-2018influenza, injectable, quadrivalent, preservative freeAngela [facility]10-24-2017influenza, injectable, quadrivalent, preservative freeAngela [facility]08-26-2015pneumococcal polysaccharide vaccine, 23 valentAngela [facility] 33-90-3564omgtkgkodcnx polysaccharide vaccine, 23 valentCherly [facility] Payers DatePayer CategoryPayerPolicy [id number]-pay2025Medicare (Managed Care)[employer] Member Subscriber Plan / Payer (Effective 2024-Present) Name: Cuca Dee Relation to Subscriber: Self Name: Cuca Dee Payer ID: Not on file Group ID: [id number] Type: Not on file Address: [facility] [id number] [place] [id number] 2023Medicare [id number] [id number] [id number]30231.315 [id number] 2022 Medicaid1.2.840.7171[id number] 2011Medicare1.2.840.584686.[id number] 2011Medicare [id number] [id number] [id number] 2.16.840.1.088953.3.57[id number] 2.16.840.1.652849.3.57[id number] 2.16.840.1.133997.3.579.2.3[id number] 2.16.840.1.744036.3.579.2.82715-42-1770Wsxfhrz940928626 2.16.840.1.974303.3.579.2.37047-82-9696Eqxgthj084775660 2.16.840.1.259457.3.579.2.05732-32-4672Vkohzas274291999 2.16.840.1.792118.3.579.2.07199-35-2797Cxyespy656904190 2.16.840.1.207629.3.579.2.65990-65-5421Hacwvht705401330 2.16.840.1.508743.3.579.2.68371-65-5465Clfrwgc371046804 2.16.840.1.315675.3.579.2.26192-00-6915Ppimllq3023297 2.16.840.1.221784.3.579.2.382986-76-0455Fbuwmaq1821839 2.16.840.1.000256.3.579.2.038898-04-6528Hbrlpxj591641556 2.16.840.1.164415.3.579.2.822773-47-8633Mnolhid393090730 2.16840.1.070839.3.579.2.170727-27-5162Fifgyyx671539514 2.16.840.1.552464.3.579.2.232254-55-9750Qxpgixt421460458 2.16840.1.859577.3.579.2.139688-95-6846Jetzyvx48889568 2.16840.1.848522.3.579.2.686442-95-5416Fqawqtp63607709 2.840.1.464653.3.579.2.996324-66-4013Arawsoy449644137 2.840.1.912596.3.579.2.583005-45-8859Wwknrxb77801102 2.840.1.417957.3.579.2.519519-85-1416Qdviqbd14880252 2.840.1.979376.3.579.2.029278-17-7808Axjwifb28141957 2.840.1.479619.3.579.2.005256-37-0600Oscbgpp90547830 2.16840.1.279256.3.579.2.586280-60-6644Yhinidh129363962 2.16840.1.086388.3.579.2.790278-39-7511Ijuhqzu690450519 2.16840.1.247728.3.579.2.194498-73-6097Sjkifis834621512 2.16840.1.939625.3.579.2.460473-51-3222Fddexbb789989382 2.16840.1.305992.3.579.2.732627-99-4488Xcihigk184338533 2.16840.1.987561.3.579.2.827977-85-1348Myfqsze382780482 2.16840.1.856385.3.579.2.640494-07-2684Lhrwtol842393346 2.16840.1.275094.3.579.2.658774-45-9899Nxbovpq529887878 2.16840.1.086785.3.579.2.657022-16-0466Khsgtiq165237841 2.16840.1.387222.3.579.2.249692-36-9461Ovtbytl860594957 2.840.1.402391.3.579.2.703341-23-8341Mgegzjo514811345 2.840.1.421504.3.579.2.702674-04-7745Tbdgotn536397518 2.16840.1.069417.3.579.2.357089-16-0795Ebqawzw063255289 2.16840.1.582147.3.579.2.375504-70-8555Xzpdqxc843951369 2.840.1.761256.3.579.2.232603-12-0524Qkpfows287611356 2.16840.1.079267.3.579.2.714998-54-1457Mhnrxrb378078974 2.16840.1.578441.3.579.2.281661-45-3981Ejcngsi411880155 2.16840.1.377215.3.579.2.679781-44-2869Puymuxp613866142 2.16.840.1.213241.3.579.2.082779-53-3813Prmimvn699273289 2.16.840.1.912463.3.579.2.460608-89-2420Jyybajo690962055 2.16.840.1.069859.3.579.2.078265-01-0647Rlgvqdd385862600 2.16840.1.664735.3.579.2.684631-49-8356Xznxvnm981666381 2.16840.1.977555.3.579.2.197274-49-8480Xszeaop376732717 2.16840.1.696840.3.579.2.571495-89-3180Ioywrnx174289917 2.16840.1.612997.3.579.2.992246-75-5927Qwylbbc083078526 2.16840.1.444459.3.579.2.242100-99-9927Bqnopxl798617125 2.16840.1.729364.3.579.2.462507-32-3908Pzlmmhb242282849 2.16840.1.961556.3.579.2.899090-88-6812Cbroaho986359227 2.16840.1.724876.3.579.2.444353-19-9786Ileaeod958652823 2.16840.1.652072.3.579.2.448356-88-9147Yfbecuz295177122 2.16.840.1.546253.3.579.2.247873-65-3516Ilzqevp448006426 2.16840.1.103116.3.579.2.206716-35-6439Ffdozjl629713032 2.16.840.1.419936.3.579.2.238073-37-0243Kfensmz797572914 2.16.840.1.995197.3.579.2.503949-11-9617Xtkecaw428229454 2.16.840.1.227630.3.579.2.743798-53-9148Fdhvyno401416157 2.16.840.1.290958.3.579.2.242896-22-6367Wkqmadg686615232 2.16.840.1.995066.3.579.2.378716-32-1317Yhtuufx335211866 2.16.840.1.781874.3.579.2.200876-52-0917Odyvqio332324943 2.16840.1.436725.3.579.2.200934-93-6017Prvkrll271323565 2.16.840.1.825424.3.579.2.659012-88-9793Aqhecek493339964 2.16.840.1.454160.3.579.2.577110-21-1219Kspthyu717739918 2.16840.1.478914.3.579.2.190849-80-9970Avxwrmh928565890 2.16840.1.780148.3.579.2.781775-73-5203Upaqdpt289584190 2.16.840.1.585494.3.579.2.537707-85-0778Qlvatsk524294099 2.16.840.1.091877.3.579.2.897874-10-9388Danujpq936667799 2.16840.1.154153.3.579.2.892866-44-4961Fhaybid734618946 2.16840.1.555513.3.579.2.596042-47-7799Mawqyym735161522 2.840.1.847566.3.579.2.500462-53-2323Ouzmion189561479 2.840.1.603240.3.579.2.199310-70-6158Lbntvtb666584807 2.840.1.692185.3.579.2.867874-71-0234Rpjrknf897188463 2.0.1.651459.3.579.2.044807-64-9306Xmuasep203333827 2..1.650166.3.579.2.080925-64-3752Boljymv006401468 2.0.1.314803.3.579.2.838633-98-4605Niuxlno530447473 2..1.378270.3.579.2.490072-94-9102Ncxmesk98619221 2..1.702430.3.579.2.390586-49-4820Zbpyecx87771825 2.0.1.629681.3.579.2.881708-00-7651Nwalpag21701934 2.840.1.849244.3.579.2.592749-72-8818Cotifxw70753049 2.0.1.974509.3.579.2.639368-74-7763Qdmceop32280746 2.840.1.513006.3.579.2.9707NhrfdktWYH839N51528 r101bv63-w623-0flh-450x-15z600e1r837Hmnekyg78815256 2..1.531105.3.579.2.531 Social History DateTypeDetailFacilityStart: 10-15-2014 End: 37-09-8981Xunaubw smoking status NHISNever smokerJEAN [employer] Start: 10-15-2014 End: 22-04-8682Zfawasa intakeCurrent non-drinker of alcohol (finding)[facility] Phone: start: 65-73-2414Rlexqlm CommentoccaisionalSelect Medical Ohiohealth Rehabilitation Hospital - DublinDatamyne Phone: start: 56-92-9735Fzd Assigned At BirthNot on AcuteCare Health SystemDatamyne Phone: start: 11-14-2022 End: 01-65-8942Zzsjzbzb to SARS-CoV-2 (event)Not sureDIGNITY [facility] Start: 10-05-2022 End: 85-23-5272Dleoitx use and exposureSmokeless tobacco non-userProPomerene HospitalSymphony Dynamo Health SystemStart: 10-28-2024 End: 24-32-8215Slhxggs of Social functionProMedica Health SystemStart: 10-28-2024 End: 42-29-5203DNJ UtilitiesProPomerene HospitalSymphony Dynamo Health SystemHas the electric, gas, oil, or water Samares threatened to shut off services in your home in past 12MoNo [facility] SystemDo you belong to any clubs or organizations such as druze groups, unions, fraternal or athletic groups, or school groups?Yes [facility] SystemAre you now , , , , never or living with a partner?Never marriedProMedica Health SystemHow often to you have a drink containing alcohol?NeverProMedica Health SystemHow many standard drinks containing alcohol do you have on a typical day?Patient does not drinkProMedica Health SystemHow hard is it for you to pay for the very basics like food, housing, medical care, and heatingSomewhat hardProMedica Health SystemDo you feel stress - tense, restless, nervous, or anxious, or unable to sleep at night because yourmind is troubled all the time - these days [OSQ]To some extentBluffton Hospital SystemStart: 47-00-0214IbsDkqsma (finding)[facility] SystemStart: 59-24-8217Xpnqga identityIdentifies as female gender (finding)[facility] SystemStart: 04-41-6109Jxskpi orientationHeterosexual (finding)[facility] SystemDo you feel stress - tense, restless, nervous, or anxious, or unable to sleep at night because yourmind is troubled all the time - these days [OSQ]Not at allBluffton Hospital SystemStart: 57-27-0086Tgcormd use and exposureNon-Smoking Tobacco Use DetailsCV PhysiciansStart: 1945 Sex Assigned At BirthFemaleC PhysiciansTobacco smoking status NHISUnknown if ever smokedNOMS HealthcareStart: 06-06-2025 End: 88-47-3479Wfnfjdkys beverage intakeEx-drinker (finding)[facility] NEGATED: Highlighted rowStart: 49-49-1963Yezhsrq smoking status NHISUnknown if ever smokedCVP PhysiciansNEGATED: Highlighted rowStart: 44-69-1569Llulbsf intake Alcohol Use DetailsCV Physicians Medical Equipment Procedure CodeEquipment CodeEquipment Original TextEquipment IdentifierDates Valve Aor Evolut Fx 26mm - [id number] - [id number]: 08-17-2023 [id number], [id number], [id number]: 10-11-2020 End: 25-65-3842Xmakjr Bn Traumacem V+ Polymethylmethacrylate Gls Inj Pwdr - [id number]: 92-60-3636Plil Im 400mm 10mm 125d Cnn Tfn-Adv Lat Rlf Cut Ti Niobium - [id number]: 46-41-3903Wbjph Im Nl Au 75mm 10.35mm Tfn-Adv Hlcl Fem Prox Ti Niobium - [id number]: 07-13-2025 Screw Bn 44mm 5mm Lck X25 Strl Lf Im Nl - [id number]: 07-13-2025 Screw Lck Lght Grn 40mm 5mm X25 Fem Ti Niobium Al Strl - [id number] Start: 03-86-2649Cdafgm Bn Traumacem V+ Polymethylmethacrylate Gls Inj Pwdr - [id number], [id number]_imp FDAStart: 15-45-4094Fqpi Im 400mm 10mm 125d Cnn Tfn-Adv Lat Rlf Cut Ti Niobium - [id number]: 70-43-9048Vauqq Im Nl Au 80mm 10.35mm Tfn-Adv Hlcl Fem Prox Ti Niobium - [id number]: 06-65-2487Vojdr Lck Lght Grn 40mm 5mm X25 Fem Ti Niobium Al Strl - [id number], [id number]_imp FDAStart: 47-41-5021Inqyl Bn 44mm 5mm Lck X25 Strl Lf Im Nl - [id number], [id number]_imp FDAStart: 08-06-2025 Goals DatePatient GoalDesired Activity/StatePersonal health goalComment on above: Evaluation of progress towards goal: Patient and daughter are agreeable to [facility] for RN and PT providing patient has insurance coverage.Personal health goalComment on above: Below are four things you can do [...] prevention programs, or options for improving home safety.Personal health goal Comment on above: Evaluation of progress towards goal: Safe dc transition to SNF pending clinical course.Personal health goalComment on above: Evaluation of progress towards goal: Patient lives with daughter and grandson. Daughter is not employed and receives disability. She cooks, cleans and helps patient shower.Personal health goalComment on above: Evaluation of progress towards goal: Patient plans for a safe discharge home with daughter support.Personal health goalComment on above: Evaluation of progress towards goal: Unfortunately, prior [...] and during the week they get booked early.Personal health goalComment on above: Evaluation of progress towards goal: Patient and daughter agree she will need skilled care as a result of the fracture she has. Evaluation of progress towards goal: Patient agrees she will need skilled care as a result of the fracture she has.Personal health goalComment on above: Patient would only [facility] to [facility], if not patient would like to return home.Personal health goal Functional Status VduuAdjgrjnexhQsbcyjYpqncyxu83-77-7776Ovgxq score [AUDIT-C]0 07/12/2025 2:23 PM EDT Ursula Schuster RNPAscension St. [facility] Mental Status DateAssessmentResultFacilSSM Health St[facility] Clinical Notes 03-20-2021 to 09-05-2025 Note Date & EvsgDeieNhxccces53-24-8108 History of Present illness Narrative* Sacha Rosales, - 09/05/2025 3:40 PM EDT Patient Name: Cuca Dee Date of : 1945 Date of Service: 09/05/2025 Facility: [facility] Type of Visit: Acute Visit Subjective Cuca Dee is a 80 y.o. female seen today at alf facility for acute and regular visit. Nurses [...] CODE BP 126/76 Pulse 78 Temp 36.7 C (98.1 F) Resp 18 Wt 67.2 kg (148 lb 1.6 oz) LMP (LMP Unknown) SpO2 93% BMI 24.65 kg/m Physical Exam Vitals reviewed. Constitutional: General: [...] disease due to type 2 diabetes mellitus ([facility]) 2. Hypertensive heart and chronic kidney disease with heart failure and stage 1 through stage 4 chronic kidney disease, or unspecified chronic kidney disease ([facility]-HCC) 3. Nausea and vomiting, unspecified vomiting type Her GFR dropped from 29 to 13. She has been vomiting lately. She maybe a little dehydrated. Going to refer her back to Nephrology. She was seeing Nephrology in [place] so we will try to keep it closer. There is a wire bender in [place] we will try to get her into [facility]. I asked her if she would want [...] breast cancer. Poor prognosis. [facility] of Present illness Narrative* Ra Marinelli MD - 08/22/2025 9:45 AM EDT Images from the original note were not included. INTERVAL Hx: Cuca Dee is a 80 y.o. 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 DOS: 08/06/25 - Left impending femur fracture/lesion s/p prophylactic IM nail fixation with cement augmentation, now 2 weeks out 07/13/25 - right pathologic hip fracture status post CMN, now 6 weeks out She has been permitted to weightbear as tolerated to bilateral lower extremity. [facility] currently [facility] [facility]. She notes pain with attempts at mobilization. On vitamin-D and calcium supplementation as well as Lovenox for DVT prophylaxis. PMHx, PSHx, FamHx: were reviewed during this visit. Social History Occupational History Not on file Tobacco Use Smoking status: Never Smokeless tobacco: Never Vaping Use Vaping status: Never Used Substance and Sexual Activity Alcohol use: No Drug use: No Sexual activity: Defer MEDS & ALLERGIES: were reviewed at during this visit. ROS: Negative for Fever/Chills, Numbness/Tingling, Skin changes. PHYSICAL EXAM: Vitals: Temp 36.6 C (97.8 F) Ht 165.1 cm (5' 5 ) Wt 77.8 kg (171 lb 8.3 oz) LMP (LMP Unknown) BMI 28.54 kg/m General: Well-nourished, Well-developed, Age appropriate, and Overweight body habitus LOC: awake and alert Psych: Pleasant and Cooperative Station: Seated in wheelchair Musculoskeletal: LEFT LOWER EXTREMITY: Inspection: Incisions to left hip and thigh were evaluated, tiny are intact without evidence of active drainage, there is some mild irritation to distal tiny related to patient irritation, tiny were removed and Steri-Strips placed CV/Vasc: warm, pink, well-perfused foot & toes IMAGING: I personally viewed X-ray images of right femur, which demonstrate: Stable appearance of right femur without change in appearance of orthopedic implants. Will review and confirm findings with the radiologist report when available. 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 Daily dry dressing change as needed for drainage - Anticoagulation: Lovenox 40mg subQ daily STOP DATE 09/06/25 - Physical Therapy: Continue therapy at alf facility - Bone Health: Vit D3 2,000 IU daily and Calcium citrate 500mg PO TID and ergocalciferol Follow-up 6 week(s) with new radiographs of right and left femur. HERLINDA MORGAN PA-C ATTENDING STATEMENT: IRa MD, personally performed the face to face evaluation on this patient. I discussed with the patient and confirmed the accuracy and completeness of the aforementioned history prepared by the advance practice provider, and I personally performed the clinical examination of the patient. I discussed the treatment plan with the patient. Patient seen evaluated. She is seated in a wheelchair. She does state that she is having a difficult time weight-bearing because of pain in her left hip. Her incisions are all well healed and the sutures were removed. Prior images personally viewed and were noted to be free of fractures previously. Encouraged continued activity. Continued work with therapy at the facility. Will plan for follow-up in 6 weeks.. RA MARINELLI MD MEDICAL DECISION-MAKING POST OP GLOBAL documented in this encounterKettering Health DaytonSymphony Dynamo Harbor Oaks [id number] History of Present illness Narrative* Sacha Rosales, DO - 08/14/2025 11:59 PM EDT Patient Name: Cuca Dee Date of : 1945 Date of Service: 08/14/2025 Facility: [facility] Type of Visit: Skilled Visit Subjective Cuca Dee is a 80 y.o. female seen today at alf facility for skilled visit. Cuca is in therapy. She has been confused. She is still in a lot of pain and using oxycodone prnfairly routinely. Her appetite is down but patient says it is ok . She denies dysuria. A UA was ordered but has not been able to get a specimen yet. She had CBC and BMP done and did show HGB of 7.7 and GFR if 29 but electrolytes were ok. No cause of confusion found. Recent CXR was unremarkable forpneumonia or CHF. Allergies: Patient has no known allergies. Code Status: FULL CODE BP 105/58 Pulse 75 Temp 36.9 C (98.4 F) Resp 20 Wt 77.2 kg (170 lb 3.2 oz) LMP (LMP Unknown) SpO2 96% BMI 28.32 kg/m Physical Exam Vitals reviewed. Constitutional: General: [...] wheezing, rhonchi or rales. Comments: Wearing O2 Musculoskeletal: Right lower leg: No edema. Left lower leg: No edema. Skin: Capillary Refill: Capillary refill takes less than 2 seconds. Neurological: Mental Status: She is alert. Psychiatric: Attention and Perception: Attention normal. Mood and Affect: Mood and affect normal. Speech: Speech normal. Behavior: Behavior normal. Behavior is cooperative. Thought Content: Thought content normal. Judgment: Judgment normal. H/H 7.7/23.5 Summary / Assessment / Plan 1. Closed nondisplaced fracture of lesser trochanter of right femur with delayed healing 2. Confusion 3. Other abnormalities of gait and mobility 4. Chronic obstructive pulmonary disease, unspecified COPD type ([facility]) 5. Hypertensive heart and chronic kidney disease with heart failure and stage 1 through stage 4 chronic kidney disease, or unspecified chronic kidney disease ([facility]) 6. Anemia, unspecified type She is confused. Will check for underlying cause with UA and BMP pending. Will treat accordingly. Anemia likely due to CKD and recent hip surgery. Monitor for now. Continue therapy to reach maximum improvement. Continue other orders as directed. ELECTRONICALLY SIGNED BY: Sacha Rosales DO documented in this encounterCommunity Regional Medical Center09-26-2025 History of Present illness Narrative* Sacha Rosales DO - 08/10/2025 11:59 PM EDT Patient Name: Cuca Dee Date of : 1945 Date of Service: 08/10/2025 Facility: [facility] Type of Visit: Acute Visit Subjective Cuca Dee is a 80 y.o. female seen today at alf facility for problem visit. Nurses reported increased shortness of breath, difficulty remaining awake, dizziness/lightheadedness and doesn't feel right. They felt she was dehydrated. Her oral intake has been down. She was hypoxic so oxygen was restarted. It is running ok now with O2. She denies chest pain or shortness of breath. Subcutaneous fluids have been started and she is feeling better. She has been participating in therapy. Stat labs were ordered but not back yet. She uses oxygen at night but not during the day. Allergies: Patient has no known allergies. Code Status: FULL CODE BP 117/66 Pulse 95 Temp 37.1 C (98.8 F) Resp 20 Wt 77.8 kg (171 lb 9.6 oz) LMP (LMP Unknown) SpO2 96% BMI 28.56 kg/m Physical Exam Vitals reviewed. Constitutional: General: [...] wheezing, rhonchi or rales. Comments: Wearing O2 Musculoskeletal: Right lower leg: No edema. Left lower leg: No edema. Skin: Capillary Refill: Capillary refill takes less than 2 seconds. Neurological: Mental Status: She is alert. Psychiatric: Attention and Perception: Attention normal. Mood and Affect: Mood and affect normal. Speech: Speech normal. Behavior: Behavior normal. Behavior is cooperative. Thought Content: Thought content normal. Judgment: Judgment normal. Summary / Assessment / Plan 1. Chronic obstructive pulmonary disease, unspecified COPD type (CMS-HCC) 2. Hypertensive heart and chronic kidney disease with heart failure and stage 1 through stage 4 chronic kidney disease, or unspecified chronic kidney disease (CMS-HCC) 3. Chronic diastolic congestive heart failure (CMS-HCC) 4. Pathological fracture, hip, unspecified, subsequent encounter for fracture with routine healing She seems to be ok at this time. She denies CP or SOB so doubt PE or [place]. Will give a liter of fluidbut then stop since she has CHF. Await stat lab results. Continue therapy, other orders as directed. ELECTRONICALLY SIGNED BY: Sacha Rosales DO documented in this encounterRutland Regional Medical CenterEasy Pairings09-24-2025 History of Present illness Narrative* Sacha Rosales DO - 08/08/2025 11:59 PM EDT Patient Name: Cuca Dee Date of : 1945 Date of Service: 08/08/2025 Facility: [facility] Type of Visit: Skilled Visit Subjective Cuca Dee is a 80 y.o. female seen today at alf facility for skilled visit. Cuca returns from the hospital where she had a nail placed for femur fracture. Pain is improved but she is still using pain medication. Appetite is ok. She is participating in therapy. No new medical problems reported by staff or patient. Allergies: Patient has no known allergies. Code Status: FULL CODE BP 117/63 Pulse 81 Temp 37.1 C (98.7 F) Resp 20 Wt 81.1 kg (178 lb 14.4 oz) LMP (LMP Unknown) SpO2 92% BMI 29.77 kg/m Physical Exam Vitals reviewed. Constitutional: General: [...] Assessment/Plan Summary / Assessment / Plan 1. Closed nondisplaced fracture of lesser trochanter of right femur with delayed healing 2. Stage 3b chronic kidney disease ([facility]) 3. Type 2 diabetes mellitus with stage 4 chronic kidney disease, without long- term current use of insulin ([facility]) 4. Chronic diastolic congestive heart failure ([facility]) Medically stable. Continue therapy to reach maximum improvement. All medications reviewed and are medically necessary. ELECTRONICALLY SIGNED BY: Sacha Rosales DO documented in this encounterProMedica Health [id number] History of Present illness Narrative* Sacha Rosales, DO - 08/03/2025 11:59 PM EDT Patient Name: Cuca Dee Date of : 1945 Date of Service: 08/03/2025 Facility: [facility] Type of Visit: Skilled Visit Subjective Cuca Dee is a 80 y.o. female seen today at alf facility for skilled visit. Cuca is participating in [...] left femur 2. Coronary artery disease involving [place] coronary artery of [place] heart without angina pectoris 3. Chronic diastolic congestive heart failure ([facility]) 4. S/p TAVR (transcatheter aortic valve replacement), bioprosthetic 5. Hypertensive heart and chronic kidney disease with heart failure and stage 1 through stage 4 chronic kidney disease, or unspecified chronic kidney disease ([facility]) She is going to have surgery on a left hip lesion. She does not have any symptoms of coronary artery disease although she is unable to do 4 METS of activity. She will return here and do therapy following surgery. Continue other orders as directed. ELECTRONICALLY SIGNED BY: Sacha Rosales DO documented in this encounterCommunity Regional Medical Center09-18-2025 Miscellaneous Notes* Telephone Encounter - Kathie Ybarra RN - 08/02/2025 3:26 PM EDT Called facility and spoke with patient's nurse. [...] if she had questions/concerns. documented in this encounterCommunity Regional Medical Center09-18-2025 Telephone encounter Note* Telephone Encounter - Kathie Ybarra RN - 08/02/2025 3:26 PM EDT Called facility and spoke with patient's nurse. We had some schedule shuffling and need to move patient's surgery up to Wednesday morning 7:30 surgery, 5:30am arrival to hospital. She will work to get transportation arranged. Then called patient's daughter IleanaAlison RITTER with these details and encouraged her to call back before 3:45 today or after 8am tomorrow if she had questions/concerns. [facility] [employer] - Fitness for the rest of [id number] History of Present illness Narrative* Ra Marinelli MD - 08/01/2025 1:15 PM EDT Images from the original note [...] her daughter today. She is residing at [facility]. She still experiences mild pain about the [...] well approximated, no surrounding erythema or drainage. [place] removed at today's office visit, Steri-Strips placed. [...] the patient now developing pain with difficulty weight- bearing to the left lower extremity, we would recommend moving forward with operative stabilization with intramedullary nail to the left lower extremity due to concern for impending pathologic femur fracture. This is discussed with the patient as well as her daughter at today's visit. Risks, benefits, and alternatives to surgery were discussed with the patient today.Patient amenable to proceeding with surgical intervention. Consent [...] up postoperatively ROBERT LOPEZ PA-C ATTENDING STATEMENT: I, Ra Marinelli MD, personally performed the face to face evaluation on this patient. I discussed with the patient and confirmed the accuracy and completeness of the aforementioned history prepared by the [address] practice provider, and I personally performed the [...] any significant pain. Since her discharge and herprogression with therapy however she has begun to develop some left-sided difficulty with movement and weight- bearing. Given the size in the location of [...] -: [5] HIGH level documented in this encounterCommunity Regional Medical Center09-16-2025 History of Present illness Narrative* Rosario Strong RN - 07/31/2025 3:22 PM EDT Images from the original note were not included. Delisa Perkins, ALICE-BARTOLO [facility]; [facility] Cc: Casimiro Muñoz MD [...] up. Thank you. Delisa documented in this encounterCommunity Regional Medical Center09-16-2025 NoteSUBJECTIVE: Chief complaint: NPH with NON DESTRUCTIVE TESTER shunt. History of present illness: Follow-up for normal pressure hydrocephalus. She is currently in a [facility] and [facility]. Denies headaches, numbness, tingling, [...] Hypertension Ischemic stroke (CMS/HCC) 02/2024 seen at [facility] NPH (normal pressure hydrocephalus) (CMS/HCC) PVD (peripheral [...] cefuroxime cholecalciferol (vitamin D3) clopidogrel Dexcom G6 [employer]ing Supplies Sales Representative [facility] Dexcom G6 Transmitter device Dexcom G7 Sensor device doxycycline ferrous sulfate FreeStyle Kartik 14 Day [place] mis FreeStyle Kartik 14 Day Sensor kit furosemide gabapentin hydroCHLOROthiazide insulin aspart insulin lispro lancets [facility] Lantus Solostar U-100 Insulin insulin pen letrozole Levemir FlexPen insulin pen lisinopril magnesium oxide melatonin capsule metoprolol tartrate mirtazapine miscellaneous medical supply [facility] mupirocin nystatin ONETOUCH ULTRA BLUE TEST STRIP [facility] OneTouch Ultra Test strip oxyBUTYnin pantoprazole pen [...] sugar diagnostic (ONETOUCH ULTRA BLUE TEST STRIP [facility]), OneTouch Ultra Blue Test Strip, Disp: , [...] the morning., Disp: , Rfl: Dexcom G6 Printing Supplies Sales Representative misc, See administration instructions., Disp: , Rfl: [...] FreeStyle Kartik reader (FreeStyle Kartik 14 Day [place]) misc, FreeStyle Kartik 14 Day [place], Disp: , Rfl: FreeStyle Kartik sensor system (FreeStyle Kartik 14 Day Sensor) kit, FreeStyle Kartik 14 Day Sensor kit, Disp: , Rfl (more content not included)...[facility]09-16-2025 History of Present illness Narrative* Rosario Strong RN - 07/31/2025 11:23 AM EDT Images from the original note were not included. Delisa Perkins, BRUSH WORKER-SEWER CONNECTOR [facility]; [facility] Cc: Casimiro Muñoz MD [...] arrange for follow up. Thank you. Delisa Devries Spoke with Daughter, she will coordinate with [facility] to schedule pet ct then will schedule follow up with Dr. Muñoz. 07/31/25 AR documented in this [facility] [place] [facility]09-12-2025 Miscellaneous Notes* Telephone Encounter - Cinda Browning RN - 07/27/2025 4:24 PM EDT Patient was discharged from the hospital to a [facility]. Called SNF on 07/26/25 and left a for a return call to get updates but none provided at this time. documented in this encounterCommunity Regional Medical Center09-12-2025 Telephone encounter Note* Telephone Encounter - Cinda Browning RN - 07/27/2025 4:24 PM EDT Patient was discharged from the hospital to a SNF, [facility]. Called SNF on 07/26/25 and left a for a return call to get updates but none provided at this time. [facility] hospitalPeople [facility] Work Phone: [phone] Miscellaneous Notes* Telephone Encounter - Lashanda Ruiz - 07/25/2025 9:27 AM EDT Rat Farmer called patient and spoke with daughter and she states per her mother the patient will call when ready to schedule appointment. Office number provided documented in this encounterCommunity Regional Medical Center09-10-2025 Telephone encounter Note* Telephone Encounter - Lashanda Ruiz - 07/25/2025 9:27 AM EDT Rat Farmer called patient and spoke with daughter and she states per her mother the patient will call when ready to schedule appointment. Office number provided [employer] [id number] History of Present illness Narrative* Sacha Rosales, DO - 07/24/2025 11:14 PM EDT Patient Name: Cuca Dee Date of : 1945 Date of Service: 07/24/2025 Facility: [facility] Type of Visit: Skilled Visit Subjective Cuca Dee is a 80 y.o. female seen today at alf facility for skilled visit. Cuca is in [...] BY: Sacha Rosales DO documented in this encounterKettering Health DaytonSymphony Dynamo Harbor Oaks [id number] History of Present illness Narrative* Sacha Rosales DO - 07/20/2025 3:32 PM EDT Patient Name: Cuca Dee Date of : 1945 Date of Service: 07/20/2025 Facility: [facility] Type of Visit: Skilled Visit Subjective Cuca Dee is a 80 y.o. female seen today at alf facility for skilled visit. Cuca presents back to [facility] from [facility] where she was admitted for a pathologic [...] Exam Vitals reviewed. Exam conducted with a sightseeing guide present (Ludwin Joy MS3). Constitutional: General: She [...] hyperlipidemia associated with type 2 diabetes mellitus ([facility]) 4. Hypertensive heart and chronic kidney disease with heart failure and stage 1 through stage 4 chronic kidney disease, or unspecified chronic kidney disease ([facility]) She only rates her pain a 5 on scale 1-10 but had recent surgery for pathological fracture. Will try oxycodone 5mg Q6hrs prn. It is a condition that will require short-term opioids to control pain. Patient was in agreement. Continue therapy. F/U with ortho as directed. Continue other orders as before. ELECTRONICALLY SIGNED BY: Sacha Rosales DO documented in this encounterCommunity Regional Medical Center08-26-2025 History of Present illness Narrative* Sacha Rosales DO - 07/10/2025 11:59 PM EDT Patient Name: Cuca Dee Date of : 1945 Date of Service: 07/10/2025 Facility: [facility] Type of Visit: Skilled Visit Subjective Cuca Dee is a 80 y.o. female seen today at alf facility for skilled visit. She is participating [...] Exam Vitals reviewed. Exam conducted with a sightseeing guide present (Ludwin Joy MS3). Constitutional: General: She [...] kidney disease, or unspecified chronic kidney disease ([facility]) 2. Chronic obstructive pulmonary disease, unspecified COPD type ([facility]) 3. Lumbar back pain with radiculopathy affecting left lower extremity 4. Spinal stenosis of lumbar region with neurogenic claudication 5. Closed fracture of right hip, sequela 6. Rhinitis, unspecified type Continue therapy to reach maximum improvement. Will add loratadine 10mg daily. Continue other orders as before. ELECTRONICALLY SIGNED BY: Sacha Rosales DO documented in this encounterCommunity Regional Medical Center08-26-2025 History of Present illness Narrative* RONNA Barber - 07/10/2025 1:30 PM EDT Images from the original note [...] DOWN LEG. DENIES N/T. DOES NOT WAKE ATHS. RESIDENT AT [facility]. Physical Exam General Appearance: Patient appears uncomfortable but in no distress at rest. Respiratory: No acute distress Musculoskeletal: Gait: Unable to stand on right leg, not ambulated in the office Ankle: Intact dorsiflexion and plantar flexion Knee: Strength 4/5 with pain noted at the hip Hip: Significant pain with internal and external rotation, tender over the greater trochanteric hipbursa, pain to anterior and posterior aspects of [...] with routine healing, subsequent encounter S72.001D XR hipright 2 or 3 views 3. Intertrochanteric fracture of right hip, closed, initial encounter ([facility]) S72.141A Assessment & Plan Right hip pain [...] with oral chemotherapy medication through oncology but appearsto have run out of her insurance coverage and was without medication for a few months. Her daughterat bedside was unaware of any possibility of [...] ER for further evaluation due to the inabilityto ambulate well with her hip. A phone [...] evaluation but this has not been done yetsince visit on 05/22/25 with Diane [facility] neurosurgery to my knowledge with asking her [...] requiring urgent evaluation. Visit was preformed using [employer]-master pilot speech recognition. documented in this encounterJohn J. Pershing VA Medical [id number] History of Present illness Narrative* Sacha G Bobby, - 07/06/2025 4:24 PM EDT Patient Name: Cuca Dee Date of : 1945 Date of Service: 07/06/2025 Facility: [facility] Type of Visit: Admission H&P Subjective Cuca Dee is a 80 y.o. female seen today at alf facility for admission H&P. Cuca presents today from [facility] where she is admitted for intractable nausea vomiting due to urinary tract infection. She is feeling much better now. She does not have anymorenausea or vomiting. She is currently taking her antibiotic and tolerating it well. She is weak. Sheis unable to do her ADLs for herself. She was living at her home where her daughter lives with her and helped with her caregiving. She was ambulating with a walker and wheelchair at home. She would like to go back home eventually. She denies pain. Her appetite is good. She sees a real estate office supervisor and wire bender for her heart failure and kidney failure issues. Past Medical History: Diagnosis Date Anemia Arthritis Asthma very mild, no inhaler use Cataract Dental disease Depression Diabetes mellitus ([facility]) Diabetes mellitus type 2, controlled ([facility]) Encephalitis Foot fracture, left GERD (gastroesophageal reflux disease) Heart murmur HLD (hyperlipidemia) Hypertension Incontinence Injury of back Insulin dependent diabetes mellitus Kidney failure STAGE 4 Lumbar spondylolysis Murmur Obesity CHELSEA (obstructive sleep apnea) no machine Peptic ulceration Peripheral vascular disease Shortness of breath Stroke ([facility]) 02/27/2024 TIA (transient ischemic attack) Upper respiratory infection UTI (urinary tract infection) Visual impairment Wears dentures Past Surgical History: Procedure Laterality Date BREAST BIOPSY Right 03/01/2023 ULT BIOPSY CATARACT EXTRACTION SECTION SECTION 03/14/1974 EGD N/A 10/17/2019 Performed by Sarai Bell DO at [facility] H-PERCUTANEOUS CORONARY INTERVENTION HYSTEROSCOPY DILATION CURETTAGE MYOSURE N/A 01/29/2021 Performed by Jv Briones MD at [facility] INJECTION BLOCK EPIDURAL CAUDAL STEROID N/A 08/14/2022 Performed by Arnulfo Morgan MD at [facility] INJECTION BLOCK EPIDURAL CAUDAL STEROID N/A 06/06/2021 Performed by Arnulfo Morgan MD at [facility] INJECTION BLOCK EPIDURAL CAUDAL STEROID N/A 04/25/2021 Performed by Arnulfo Morgan MD at [facility] INJECTION CAUDAL EPIDURAL WITH CATHETER, STEROID N/A 05/03/2020 Performed by Arnulfo Morgan MD at [facility] INJECTION CAUDAL EPIDURAL WITH CATHETER, STEROID N/A 11/24/2019 Performed by Arnulfo Morgan MD at [facility] INJECTION CAUDAL EPIDURAL WITH CATHETER, STEROID N/A 04/21/2019 Performed by Arnulfo Morgan MD at [facility] INJECTION MEDIAL BRANCH NERVE BLOCK Bilateral L 4/5, 5/1 Bilateral 08/18/2019 Performed by Arnulfo Morgan MD at [facility] INJECTION MEDIAL BRANCH NERVE BLOCK Bilateral L 4/5, 5/1 Bilateral 06/23/2019 Performed by Arnulfo Morgan MD at [facility] INJECTION STEROID EPI 1 WITH SEDATION Right L 4, 5 NR Right 03/17/2019 Performed by Arnulfo Morgan MD at [facility] INJECTION STEROID EPI 1 WITH SEDATION: right L45 nroot Right 08/15/2018 Performed by Arnulfo Morgan MD at [facility] LEFT L4, AND 5 NERVE ROOT INJECTION 2 OF 2 Left 07/22/2018 Performed by Arnulfo Morgan MD at [facility] LEFT L4, AND L5 NERVE ROOT 1 OF 2 Left 07/04/2018 Performed by Arnulfo Morgan MD at [facility] INSERTION TONSILLECTOMY AGE 4 Transcutaneous aortic valve replacement/Transfemoral/Kwan N/A 08/17/2023 Performed by Chava Norris MD at [facility] Valvuloplasty aortic N/A 06/03/2023 Performed by Chava Norris MD at [facility] Family History Problem [...] medication andpost discharge medication. Review of Systems Objective LMP [...] Chronic diastolic congestive heart failure (CMS-HCC) 2. Hypertensive heart and chronic kidney disease with heart failure and stage 1 through stage 4 chronic kidney disease, or unspecified chronic kidney disease (CMS-HCC) 3. Intractable nausea and vomiting 4. Urinary tract infection without hematuria, site unspecified Admit to [facility]. Therapy evaluation with OT and PT. Continue medications from the hospital. Full code. Good rehab potential. Plan to go home when able to take care of self and do ADLs. ELECTRONICALLY SIGNED BY: Sacha Rosales DO documented [facility]* Tanya Rodriguez RN - 07/05/2025 6:34 PM EDT Patient discharged to snf with [facility] transport and all belongings and medications. Patient denies any complaints of chest pain/tightness, dizziness, nausea, vomiting. Daughter notified of departure. Attempted to call snf to notifiy of patient's departure-no answer. Crf faxed and report called. [facility]* Tanya Rodriguez RN - 07/05/2025 6:34 PM EDT Patient discharged to snf with [facility] transport and all belongings and medications. Patient denies any complaints of chest pain/tightness, dizziness, nausea, vomiting. Daughter notified of departure. Attempted to call snf to notifiy of patient's departure-no answer. Crf faxed and report called. * Cesilia Hand RN - 07/04/2025 1:00 PM EDT Patient noted to have pulled out IV and telemetry. Rat Farmer completed adl's. Patient refused to replace another IV and/ lunch. Jazmine Do CNP advised and see new order. documented in this encounterCommunity [facility] Plan of care note * Plan of Care - Tanya Rodriguez RN - 07/05/2025 6:33 PM EDT Problem: Pain Goal: Patient goal is pain score less than 4, able to rest, and participant in treatment plan as appropriate Description: INTERVENTIONS: 1. Encourage patient or legal patient relations representative to report early pain and ask [...] per policy 9. Teach patient or legal patient relations representative interventions for comforting Outcome: Completed Note: [...] at the bedside 7. Instruct patient/ patient patient relations representative about use of safety devices 8. Include patient/ patient patient relations representative in decisions related to safety Outcome: [...] hygiene technique. 7. Identify and instruct patient/patient patient relations representative in use of appropriate isolation precautionsfor identified infection/symptoms. 8. Provide and discuss with patient/patient patient relations representative on educational MDRO sheet. 9. Encourage and monitor nutritional status daily and consult form setter metal road forms if indicated. 10. Implement neutropenic guidelines as needed. Outcome: Completed Note: Evaluation of progress towards goal: Patient discharged to SNF Problem: Knowledge Deficit Goal: Patient/patient patient relations representative demonstrates understanding of disease process, treatment plan,medications, and discharge instructions Description: INTERVENTIONS 1. Complete [...] anxiety both physical and emotional (heart palpitations, chestpain, shortness of breath, headaches, nausea, feeling jumpy, [...] Collaborate with ancillary departments 14. Include patient/patient patient relations representative in decisions related to anxiety Outcome: [...] care 6. Collaborate with pastoral/spiritual care, social sciences research scientist, mental health counselor as needed. 7. Instruct patient on diversional activities such as physical activity, distraction, and deep breathing exercises to assist with coping 8. Involve patient's patient relations representative in care Outcome: Completed Note: Evaluation [...] educator as appropriate 6. Communicate referral to form setter metal road forms as appropriate 7. Collaborate with case management/social sciences research scientist for discharge needs Outcome: Completed Note: Evaluation [...] supplement as ordered 13. Collaborate with clinical form setter metal road forms 14. Include patient/ patient's patient relations representative in decisions related to nutrition Outcome: [...] Score of =/> 25 or indicated by [facility] Assessment Goal: Patient should be free from fall Description: Interventions: 1. [place]acho to environment 2. Hourly rounds addressing the [...] non-skid footwear 11. Teach patient and patient patient relations representative to maintain environment for safety and [...] (cane, walker) within reach 19. Request patient patient relations representative bring adaptive equipment/mobility aids from home or obtain and provide as needed 20. Consult pharmacy regarding effects of med's affecting mobility, cognition, and alternatives 21. Obtain physician order for PT if risk factors associated with mobility are present 22. Obtain physician order for OT as appropriate 23. Utilize diversional activities 24. Educate patient and patient patient relations representative how to maintain a safe environment during visitationtimes (notify nurse prior to leaving bedside) 25. Consider appropriateness of medical or non-emergency medical technician/driver 26. Set up voiding schedule as appropriate [...] Handoff to next level of care provider (care director rn, PCP, home care). 5. Complete follow up [...] progress towards goal: Patient discharged to SNF N(i)²08-21-2025 Miscellaneous Notes* Plan of Care - Tanya Rodriguez RN - 07/05/2025 6:33 PM EDT Problem: Pain Goal: Patient goal is pain score less than 4, able to rest, and participant in treatment plan as appropriate Description: INTERVENTIONS: 1. Encourage patient or legal patient relations representative to report early pain and ask [...] per policy 9. Teach patient or legal patient relations representative interventions for comforting Outcome: Completed Note: [...] at the bedside 7. Instruct patient/ patient patient relations representative about use of safety devices 8. Include patient/ patient patient relations representative in decisions related to safety Outcome: [...] hygiene technique. 7. Identify and instruct patient/patient patient relations representative in use of appropriate isolation precautionsfor identified infection/symptoms. 8. Provide and discuss with patient/patient patient relations representative on educational MDRO sheet. 9. Encourage and monitor nutritional status daily and consult form setter metal road forms if indicated. 10. Implement neutropenic guidelines as needed. Outcome: Completed Note: Evaluation of progress towards goal: Patient discharged to SNF Problem: Knowledge Deficit Goal: Patient/patient patient relations representative demonstrates understanding of disease process, treatment plan,medications, and discharge instructions Description: INTERVENTIONS 1. Complete [...] anxiety both physical and emotional (heart palpitations, chestpain, shortness of breath, headaches, nausea, feeling jumpy, [...] Collaborate with ancillary departments 14. Include patient/patient patient relations representative in decisions related to anxiety Outcome: [...] care 6. Collaborate with pastoral/spiritual care, social sciences research scientist, mental health counselor as needed. 7. Instruct patient on diversional activities such as physical activity, distraction, and deep breathing exercises to assist with coping 8. Involve patient's patient relations representative in care Outcome: Completed Note: Evaluation [...] educator as appropriate 6. Communicate referral to form setter metal road forms as appropriate 7. Collaborate with case management/social sciences research scientist for discharge needs Outcome: Completed Note: Evaluation [...] supplement as ordered 13. Collaborate with clinical form setter metal road forms 14. Include patient/ patient's patient relations representative in decisions related to nutrition Outcome: [...] be free from fall Description: Interventions: 1. Picacho to environment 2. Hourly rounds addressing the [...] non-skid footwear 11. Teach patient and patient patient relations representative to maintain environment for safety and [...] (cane, walker) within reach 19. Request patient patient relations representative bring adaptive equipment/mobility aids from home or obtain and provide as needed 20. Consult pharmacy regarding effects of med's affecting mobility, cognition, and alternatives 21. Obtain physician order for PT if risk factors associated with mobility are present 22. Obtain physician order for OT as appropriate 23. Utilize diversional activities 24. Educate patient and patient patient relations representative how to maintain a safe environment during visitationtimes (notify nurse prior to leaving bedside) 25. Consider appropriateness of medical or non-emergency medical technician/driver 26. Set up voiding schedule as appropriate [...] Handoff to next level of care provider (care director rn, PCP, home care). 5. Complete follow up [...] progress towards goal: Patient discharged to SNF * Discharge Planning Note - Kong Spivey - 07/05/2025 4:26 PM EDT DISCHARGE PLANNING NOTE BLS transport with [facility] confirmed via PTN to [facility] 8 at 1800 * Discharge Planning Note - Bethany Lucero RN - 07/05/2025 10:28 AM EDT 07/05/25 1028 Services Requested Patient expects to be discharged to: SNF [facility] [address] [phone] SNF Accepted? Yes Transportation Arranged Ambulance Patient choice offered Yes List Provided Yes [facility] List Provided [facility] Facility DC Planning Complete Discharge Milestones Yes DISCHARGE PLANNING NOTE Discharge plan: Discharge orders noted. Transportation arranged for 2pm pickling operator. [facility] updated on transport time. CRF and 7000 sent via [employer]. - Bethany Lucero RN 07/05/25 10:29 AM * Plan of Care - Kristy Galarza RN - 07/04/2025 10:00 PM EDT Problem: Pain Goal: Patient goal is pain score less than 4, able to rest, and participant in treatment plan as appropriate Description: INTERVENTIONS: 1. Encourage patient or legal patient relations representative to report early pain and ask [...] per policy 9. Teach patient or legal patient relations representative interventions for comforting Outcome: Progressing Note: [...] at the bedside 7. Instruct patient/ patient patient relations representative about use of safety devices 8. Include patient/ patient patient relations representative in decisions related to safety Outcome: [...] hygiene technique. 7. Identify and instruct patient/patient patient relations representative in use of appropriate isolation precautionsfor identified infection/symptoms. 8. Provide and discuss with patient/patient patient relations representative on educational MDRO sheet. 9. Encourage and monitor nutritional status daily and consult form setter metal road forms if indicated. 10. Implement neutropenic guidelines as needed. Outcome: Progressing Note: Evaluation of progress towards goal: Patient VS WNL, remains afebrile for shift. Continue to monitor. Problem: Knowledge Deficit Goal: Patient/patient patient relations representative demonstrates understanding of disease process, treatment plan,medications, and discharge instructions Description: INTERVENTIONS 1. Complete [...] anxiety both physical and emotional (heart palpitations, chestpain, shortness of breath, headaches, nausea, feeling jumpy, [...] Collaborate with ancillary departments 14. Include patient/patient patient relations representative in decisions related to anxiety Outcome: [...] care 6. Collaborate with pastoral/spiritual care, social sciences research scientist, mental health counselor as needed. 7. Instruct patient on diversional activities such as physical activity, distraction, and deep breathing exercises to assist with coping 8. Involve patient's patient relations representative in care Outcome: Progressing Note: Evaluation [...] educator as appropriate 6. Communicate referral to form setter metal road forms as appropriate 7. Collaborate with case management/social sciences research scientist for discharge needs Outcome: Progressing Note: Evaluation [...] supplement as ordered 13. Collaborate with clinical form setter metal road forms 14. Include patient/ patient's patient relations representative in decisions related to nutrition Outcome: [...] Score of =/> 25 or indicated by [facility] Assessment Goal: Patient should be free from fall Description: Interventions: 1. [place] to environment 2. Hourly rounds addressing the [...] non-skid footwear 11. Teach patient and patient patient relations representative to maintain environment for safety and [...] (cane, walker) within reach 19. Request patient patient relations representative bring adaptive equipment/mobility aids from home or obtain and provide as needed 20. Consult pharmacy regarding effects of med's affecting mobility, cognition, and alternatives 21. Obtain physician order for PT if risk factors associated with mobility are present 22. Obtain physician order for OT as appropriate 23. Utilize diversional activities 24. Educate patient and patient patient relations representative how to maintain a safe environment during visitationtimes (notify nurse prior to leaving bedside) 25. Consider appropriateness of medical or non-emergency medical technician/driver 26. Set up voiding schedule as appropriate [...] Handoff to next level of care provider (care director rn, PCP, home care). 5. Complete follow up [...] goal: Continue to assess for when appropriate. * Discharge Planning Note - Jeannie Paris - 07/04/2025 3:59 PM EDT DISCHARGE PLANNING NOTE Prior Auth approved for admission to : [facility] P# ; F# Approval # [id number] Valid for Dates: 07/04/25 - 07/10/25 * Discharge Planning Note - Jeannie Paris - 07/04/2025 1:42 PM EDT DISCHARGE PLANNING NOTE Prior auth submitted to: [employer] Via: Interface21 On behalf of : [facility] P# ; F# REF# [id number] * Discharge Planning Note - Bethany Lucero RN - 07/04/2025 12:21 PM EDT Images from the original note [...] discharge planning Discharge Disposition SNF SNF Name [facility] ([facility] [phone] Fax SNF Accepted? -- [referral sent] Does the patient need discharge transportation arranged? Yes Transportation Arranged Ambulance DC Planning Complete Discharge Milestones Yes Respiratory Indicator Does the patient currently have home respiratory equipment? No Will the patient need home respiratory equipment upon discharge? No, it is expected that patient will NOT discharge home with respiratory DME needs Discharge plan: [facility] SNF vs Home with [facility] (resume services) [facility] to perform on-site this morning. CN called and left a voicemail for admissions to confirm if onsite was completed/if patient can be accepted. [facility] pending bed availability.Once accepting facility established, will start insurance auth. - Bethany Lucero RN 07/04/25 12:28 PM Update: CN spoke with [facility] admissions, they have accepted patient, ok to start precert. Cn called patient's daughter Ileana, agreeable with plan of care. [facility] tasked to start insurance auth for [facility]. - Bethany Lucero RN 07/04/25 1:29 PM * PT/OT/TRAFFIC SERGEANT - José Luis Cheng, PT - 07/04/2025 9:50 AM EDT Physical Therapy Reason For Patient Refusal (comment required): (P) Pain (Pt c/o back pain and requesting to defer therapy until she has her SNF consult today. Will check back later with pt) * PT/OT/TRAFFIC SERGEANT - DANDRE Escobar/Trice - 07/04/2025 9:49 AM EDT Occupational Therapy OT Type of Visit: Patient refusal Pt had just finished eating breakfast upon arrival. Pt c/o low back pain and it was suggested by therapist she transfer to the chair to see if relieves the pain. Pt began getting upset about not wanting to leave the bed and do therapy this morning. Pt stating she wants to talk to the halfway rep. When they get here and then do therapy. OT encouraged sitting at EOB for simple ADLs, however, pt again declined this. OT to defer treatment at this time and will attempt again at a later time. * Plan of Care - Sofia Martin RPH - 07/04/2025 9:34 AM EDT Problem: Medication Description: If medication is necessary, [...] also shows no change in renal function. * Plan of Care - Cesilia Hand RN - 07/04/2025 7:23 AM EDT Problem: Pain Goal: Patient goal is pain score less than 4, able to rest, and participant in treatment plan as appropriate Description: INTERVENTIONS: 1. Encourage patient or legal patient relations representative to report early pain and ask [...] per policy 9. Teach patient or legal patient relations representative interventions for comforting Note: Evaluation of [...] at the bedside 7. Instruct patient/ patient patient relations representative about use of safety devices 8. Include patient/ patient patient relations representative in decisions related to safety Note: Evaluation of progress towards goal: safety precautions in place. * Plan of Care - Kristy Galarza RN - 07/03/2025 8:58 PM EDT Problem: Pain Goal: Patient goal is pain score less than 4, able to rest, and participant in treatment plan as appropriate Description: INTERVENTIONS: 1. Encourage patient or legal patient relations representative to report early pain and ask [...] per policy 9. Teach patient or legal patient relations representative interventions for comforting Outcome: Progressing Note: [...] at the bedside 7. Instruct patient/ patient patient relations representative about use of safety devices 8. Include patient/ patient patient relations representative in decisions related to safety Outcome: [...] hygiene technique. 7. Identify and instruct patient/patient patient relations representative in use of appropriate isolation precautionsfor identified infection/symptoms. 8. Provide and discuss with patient/patient patient relations representative on educational MDRO sheet. 9. Encourage and monitor nutritional status daily and consult form setter metal road forms if indicated. 10. Implement neutropenic guidelines as needed. Outcome: Progressing Note: Evaluation of progress towards goal: Patient VS WNL, remains afebrile for shift. Continue to monitor. Problem: Knowledge Deficit Goal: Patient/patient patient relations representative demonstrates understanding of disease process, treatment plan,medications, and discharge instructions Description: INTERVENTIONS 1. Complete [...] anxiety both physical and emotional (heart palpitations, chestpain, shortness of breath, headaches, nausea, feeling jumpy, [...] Collaborate with ancillary departments 14. Include patient/patient patient relations representative in decisions related to anxiety Outcome: [...] care 6. Collaborate with pastoral/spiritual care, social sciences research scientist, mental health counselor as needed. 7. Instruct patient on diversional activities such as physical activity, distraction, and deep breathing exercises to assist with coping 8. Involve patient's patient relations representative in care Outcome: Progressing Note: Evaluation [...] educator as appropriate 6. Communicate referral to form setter metal road forms as appropriate 7. Collaborate with case management/social sciences research scientist for discharge needs Outcome: Progressing Note: Evaluation [...] supplement as ordered 13. Collaborate with clinical form setter metal road forms 14. Include patient/ patient's patient relations representative in decisions related to nutrition Outcome: [...] be free from fall Description: Interventions: 1. [place]acho to environment 2. Hourly rounds addressing the [...] non-skid footwear 11. Teach patient and patient patient relations representative to maintain environment for safety and [...] (cane, walker) within reach 19. Request patient patient relations representative bring adaptive equipment/mobility aids from home or obtain and provide as needed 20. Consult pharmacy regarding effects of med's affecting mobility, cognition, and alternatives 21. Obtain physician order for PT if risk factors associated with mobility are present 22. Obtain physician order for OT as appropriate 23. Utilize diversional activities 24. Educate patient and patient patient relations representative how to maintain a safe environment during visitationtimes (notify nurse prior to leaving bedside) 25. Consider appropriateness of medical or non-emergency medical technician/driver 26. Set up voiding schedule as appropriate [...] Handoff to next level of care provider (care director rn, PCP, home care). 5. Complete follow up [...] goal: Continue to assess for when appropriate. * PT/OT/TRAFFIC SERGEANT - Dania Arteaga, OTR/L - 07/03/2025 1:39 PM EDT Occupational Therapy Evaluation (co-eval with PT for patient safety) Discharge Recommendations for Safe Patient Transition OT Discharge Disposition Recommendation: Post acute - moderate OT Post Acute Moderate Rehab Needs: Recommend moderate intensity rehab, Tolerate 1-2 hrs of therapy3-5 days/wk, Subacute or chronic functional impairment Current Impairments Informing Therapy Recommendation: Ambulation status/safety, Fall risk, ADL status, Endurance level Wire Bender Support for-: Mobility Deficits, ADL Deficits Therapy Plan Need for skilled Occupational Therapy to address deficits in ADL independence and functional mobility due to a status decline resulting from weakness. Past Medical History: Diagnosis Date Anemia Arthritis Asthma very mild, no inhaler use Cataract Dental disease Depression [place] Diabetes mellitus type 2, controlled [place] Encephalitis Foot fracture, left GERD (gastroesophageal reflux disease) Heart murmur HLD (hyperlipidemia) Hypertension Incontinence Injury of back Insulin dependent diabetes mellitus Kidney failure STAGE 4 Lumbar spondylolysis Murmur Obesity CHELSEA (obstructive sleep apnea) no machine Peptic ulceration Peripheral vascular disease Shortness of breath Stroke [place] 02/27/2024 TIA (transient ischemic attack) Upper respiratory infection UTI (urinary tract infection) Visual impairment Wears dentures Past Surgical History: Procedure Laterality Date BREAST BIOPSY Right 03/01/2023 ULT BIOPSY CATARACT EXTRACTION SECTION SECTION 03/14/1974 EGD N/A 10/17/2019 Performed by Sarai Bell DO at [facility] H-PERCUTANEOUS CORONARY INTERVENTION HYSTEROSCOPY DILATION CURETTAGE MYOSURE N/A 01/29/2021 Performed by Jv Briones MD at [facility] INJECTION BLOCK EPIDURAL CAUDAL STEROID N/A 08/14/2022 Performed by Arnulfo Morgan MD at [facility] INJECTION BLOCK EPIDURAL CAUDAL STEROID N/A 06/06/2021 Performed by Arnulfo Morgan MD at [facility] INJECTION BLOCK EPIDURAL CAUDAL STEROID N/A 04/25/2021 Performed by Arnulfo Morgan MD at [facility] IN[facility] CAUDAL EPIDURAL WITH CATHETER, STEROID N/A 05/03/2020 Performed by Arnulfo Morgan MD at [facility]UD[facility] EPIDURAL WITH CATHETER, STEROID N/A 11/24/2019 Performed by Arnulfo Morgan MD at [facility] INJECTION CAUDAL EPIDURAL WITH CATHETER, STEROID N/A 04/21/2019 Performed by Arnulfo Morgan MD at [facility] MEDIAL BRANCH NERVE BLOCK Bilateral L 4/5, 5/1 Bilateral 08/18/2019 Performed by Arnulfo Morgan MD at [facility] INJECTION MEDIAL BRANCH NERVE BLOCK Bilateral L 4/5, 5/1 Bilateral 06/23/2019 Performed by Arnulfo Morgan MD at [facility] INJECTION STEROID EPI 1 WITH SEDATION Right L 4, 5 NR Right 03/17/2019 Performed by Arnulfo Morgan MD at [facility] INJECTION STEROID EPI 1 WITH SEDATION: right L45 nroot Right 08/15/2018 Performed by Arnulfo Morgan MD at [facility] LEFT L4, AND 5 NERVE ROOT INJECTION 2 OF 2 Left 07/22/2018 Performed by Arnulfo Morgan MD at [facility] LEFT L4, AND L5 NERVE ROOT 1 OF 2 Left 07/04/2018 Performed by Arnulfo Morgan MD at [facility] SHUNT INSERTION TONSILLECTOMY AGE 4 Transcutaneous aortic valve replacement/Transfemoral/Kwan N/A 08/17/2023 Performed by Chava Norris MD at [facility] CARDIAC CATH LABS Valvuloplasty aortic N/A 06/03/2023 Performed by Chava Norris MD at [facility]ATH [facility] 6 Clicks: Daily [...] socks, gait belt Weight Bearing Status: FWB Telemetry/Childhood Development Teacher: Yes Oxygen Used: Room air Other: Fall [...] reach for bed rail. Min assist given tocomplete sit with upper body. Pt then able [...] due to type 2 diabetes mellitus [place] Chronic diastolic congestive heart failure ([facility]) Weakness Iron deficiency anemia * PT/OT/TRAFFIC SERGEANT - Dominique Chris, PT - 07/03/2025 12:43 PM EDT Physical Therapy Evaluation (co-eval w/ OT for increased pt safety d/t impaired mobility) Discharge Recommendations for Safe Patient Transition PT Discharge Disposition Recommendation: Post acute - moderate PT Post Acute Moderate Rehab Needs: Recommend moderate intensity rehab, Tolerate 1-2 hrs of therapy3-5 days/wk, Subacute or chronic functional impairment Current Impairments Informing Therapy Recommendation: Ambulation status/safety, Fall risk, ADL status, Endurance level Wire Bender Support for-: Mobility Deficits, ADL Deficits Therapy Plan Need for skilled Physical Therapy to address deficits in functional mobility due to a status decline resulting from generalized weakness/decreased activity macario d/t intractable n/v. Past Medical History: Diagnosis Date Anemia Arthritis Asthma very mild, no inhaler use Cataract Dental disease Depression Diabetes mellitus [place] Diabetes mellitus type 2, controlled ([facility]) Encephalitis Foot fracture, left GERD (gastroesophageal reflux disease) Heart murmur HLD (hyperlipidemia) Hypertension Incontinence Injury of back Insulin dependent diabetes mellitus Kidney failure STAGE 4 Lumbar spondylolysis Murmur Obesity CHELSEA (obstructive sleep apnea) no machine Peptic ulceration Peripheral vascular disease Shortness of breath Stroke ([facility]) 02/27/2024 TIA (transient ischemic attack) Upper respiratory infection UTI (urinary tract infection) Visual impairment Wears dentures Past Surgical History: Procedure Laterality Date BREAST BIOPSY Right 03/01/2023 ULT BIOPSY CATARACT EXTRACTION SECTION SECTION 03/14/1974 EGD N/A 10/17/2019 Performed by Sarai Bell DO at [facility] H-PERCUTANEOUS CORONARY INTERVENTION HYSTEROSCOPY DILATION CURETTAGE MYOSURE N/A 01/29/2021 Performed by Jv Briones MD at [facility] INJECTION BLOCK EPIDURAL CAUDAL STEROID N/A 08/14/2022 Performed by Arnulfo Morgan MD at [facility] INJECTION BLOCK EPIDURAL CAUDAL STEROID N/A 06/06/2021 Performed by Arnulfo Morgan MD at [facility] BLOCK EPIDURAL CAUDAL STEROID N/A 04/25/2021 Performed by Arnulfo Morgan MD at [facility] INJECTION CAUDAL EPIDURAL WITH CATHETER, STEROID N/A 05/03/2020 Performed by Arnulfo Mrogan MD at [facility] INJECTION CAUDAL EPIDURAL WITH CATHETER, STEROID N/A 11/24/2019 Performed by Arnulfo Morgan MD at [facility] INJECTION CAUDAL EPIDURAL WITH CATHETER, STEROID N/A 04/21/2019 Performed by Arnulfo Morgan MD at [facility] MEDIAL BRANCH NERVE BLOCK Bilateral L 4/5, 5/1 Bilateral 08/18/2019 Performed by Arnulfo Morgan MD at [facility] INJECTION MEDIAL BRANCH NERVE BLOCK Bilateral L 4/5, 5/1 Bilateral 06/23/2019 Performed by Arnulfo Morgan MD at [facility] INJECTION STEROID EPI 1 WITH SEDATION Right L 4, 5 NR Right 03/17/2019 Performed by Arnulfo Morgan MD at [facility] INJECTION STEROID EPI 1 WITH SEDATION: right L45 nroot Right 08/15/2018 Performed by Arnulfo Morgan MD at [facility] LEFT L4, AND 5 NERVE ROOT INJECTION 2 OF 2 Left 07/22/2018 Performed by Arnulfo Morgan MD at [facility] LEFT L4, AND L5 NERVE ROOT 1 OF 2 Left 07/04/2018 Performed by Arnulfo Morgan MD at [facility] SHUNT INSERTION TONSILLECTOMY AGE 4 Transcutaneous aortic valve replacement/Transfemoral/Kwan N/A 08/17/2023 Performed by Chava Norris MD at [facility] Valvuloplasty aortic N/A 06/03/2023 Performed by Chava Norris MD at [facility] 6 Clicks: Basic [...] socks, gait belt Weight Bearing Status: FWB Telemetry/Childhood Development Teacher: Yes Oxygen Used: Room air Other: Fall [...] UE support, and no LOB, to demo increasedind w/ standing ADLs. Disciplines: PT Problem: Transfers Dates: Start: 07/03/25 Disciplines: PT Goal: Patient will perform transfers with Supervision Dates: Start: 07/03/25 Expected End: 07/12/25 Description: Goal Description: including bed mobility (HOB may be elevated, use of rail), to reducefall risk w/ toileting/self-care tasks. Disciplines: PT Physical Therapy Care Plan (Resolved) There are no resolved problems. Principal Problem: Intractable nausea and vomiting Active Problems: 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) Chronic diastolic congestive heart failure ([facility]) Weakness Iron deficiency anemia * Discharge Planning Note - Bethany Lucero RN - 07/03/2025 10:52 AM EDT 07/03/25 1008 Patient Information Initial Pre-Hospitalization Assessment Completed? Completed [...] we didn't have money to get more.Never True Hunger Screening Complete? Yes Pt. Eligible for Food / Voucher No If Eligible: Received Food Box Not Offered to Patient Warm Handoff Complete Caregiver/Family Member Caregiver/Family Member Involved with Current Plan of Care No Caregiver/Family Member in Agreement with Current Plan of Care No Caregiver/Support System Limitations Caregiver/Support Systems Limitations (Check All That Apply) No Caregiver Needed Patient/Caregiver Goals Patient/Caregiver Goals [facility] (Short Term) Services Requested Patient expects to be discharged to: SNF Does the patient wish to have family/friend/caregiver involved in their discharge planning? No, thepatient does not wish to have family/friend/caregiver involved in their discharge planning Discharge Disposition [facility] SNF Name [facility] ([facility]) [phone] Fax SNF Accepted? (referral sent) Does the patient need discharge transportation arranged? Yes Transportation Arranged Ambulance DC Planning Complete Discharge Milestones Yes DISCHARGE PLANNING NOTE CN met with patient at bedside. CN discussed therapy recommendations and recent hospital admission.Patient agreeable for SNF referral be sent to [facility] only. If [facility] unable to accept, patient would like to return home with [facility]. Patient is current with [facility]. Referral sent to [facility] and [facility]. Discharge plan: [facility] SNF vs Home with [facility] (resume services) [facility] declined due to bed availability. Patient gave [facility] as 2nd choice, reviewing/pending bed availability. Daughter at bedside, 2 more choices given. Referrals sent to [facility] and [facility]. - Bethany Lucero RN 07/03/25 1:47 PM * Plan of Care - Cesilia Hand RN - 07/03/2025 7:56 AM EDT Problem: Pain Goal: Patient goal is pain score less than 4, able to rest, and participant in treatment plan as appropriate Description: INTERVENTIONS: 1. Encourage patient or legal patient relations representative to report early pain and ask [...] per policy 9. Teach patient or legal patient relations representative interventions for comforting Note: Evaluation of [...] at the bedside 7. Instruct patient/ patient patient relations representative about use of safety devices 8. Include patient/ patient patient relations representative in decisions related to safety Note: [...] hygiene technique. 7. Identify and instruct patient/patient patient relations representative in use of appropriate isolation precautionsfor identified infection/symptoms. 8. Provide and discuss with patient/patient patient relations representative on educational MDRO sheet. 9. Encourage and monitor nutritional status daily and consult form setter metal road forms if indicated. 10. Implement neutropenic guidelines as needed. Note: Evaluation of progress towards goal: Standard precautions in place. Problem: Knowledge Deficit Goal: Patient/patient patient relations representative demonstrates understanding of disease process, treatment plan,medications, and discharge instructions Description: INTERVENTIONS 1. Complete [...] anxiety both physical and emotional (heart palpitations, chestpain, shortness of breath, headaches, nausea, feeling jumpy, [...] Collaborate with ancillary departments 14. Include patient/patient patient relations representative in decisions related to anxiety Note: [...] care 6. Collaborate with pastoral/spiritual care, social sciences research scientist, mental health counselor as needed. 7. Instruct patient on diversional activities such as physical activity, distraction, and deep breathing exercises to assist with coping 8. Involve patient's patient relations representative in care Note: Evaluation of progress [...] educator as appropriate 6. Communicate referral to form setter metal road forms as appropriate 7. Collaborate with case management/social sciences research scientist for discharge needs Note: Evaluation of progress [...] supplement as ordered 13. Collaborate with clinical form setter metal road forms 14. Include patient/ patient's patient relations representative in decisions related to nutrition Note: [...] Note: Evaluation of progress towards goal: monitor * Plan of Care - Kristy Galarza RN - 07/02/2025 10:16 PM EDT Problem: Pain Goal: Patient goal is pain score less than 4, able to rest, and participant in treatment plan as appropriate Description: INTERVENTIONS: 1. Encourage patient or legal patient relations representative to report early pain and ask [...] per policy 9. Teach patient or legal patient relations representative interventions for comforting Outcome: Progressing Note: [...] at the bedside 7. Instruct patient/ patient patient relations representative about use of safety devices 8. Include patient/ patient patient relations representative in decisions related to safety Outcome: [...] hygiene technique. 7. Identify and instruct patient/patient patient relations representative in use of appropriate isolation precautionsfor identified infection/symptoms. 8. Provide and discuss with patient/patient patient relations representative on educational MDRO sheet. 9. Encourage and monitor nutritional status daily and consult form setter metal road forms if indicated. 10. Implement neutropenic guidelines as needed. Outcome: Progressing Note: Evaluation of progress towards goal: Patient VS WNL, remains afebrile for shift. Continue to monitor. Problem: Knowledge Deficit Goal: Patient/patient patient relations representative demonstrates understanding of disease process, treatment plan,medications, and discharge instructions Description: INTERVENTIONS 1. Complete [...] anxiety both physical and emotional (heart palpitations, chestpain, shortness of breath, headaches, nausea, feeling jumpy, [...] Collaborate with ancillary departments 14. Include patient/patient patient relations representative in decisions related to anxiety Outcome: [...] care 6. Collaborate with pastoral/spiritual care, social sciences research scientist, mental health counselor as needed. 7. Instruct patient on diversional activities such as physical activity, distraction, and deep breathing exercises to assist with coping 8. Involve patient's patient relations representative in care Outcome: Progressing Note: Evaluation [...] educator as appropriate 6. Communicate referral to form setter metal road forms as appropriate 7. Collaborate with case management/social sciences research scientist for discharge needs Outcome: Progressing Note: Evaluation [...] supplement as ordered 13. Collaborate with clinical form setter metal road forms 14. Include patient/ patient's patient relations representative in decisions related to nutrition Outcome: [...] as needed, labs monitored. [facility] Progress note* Discharge Planning Note - Kong Spivey - 07/05/2025 4:26 PM EDT DISCHARGE PLANNING NOTE BLS transport with [facility] confirmed via PTN to [facility] 07.05.25 at 1800 [facility] Progress note* Discharge Planning Note - Bethany Lucero RN - 07/05/2025 10:28 AM EDT 07/05/25 1028 Services Requested Patient expects to be discharged to: SNF Discharge Disposition SNF SNF Name [address] [address] extension [phone] Fax SNF Accepted? Yes Transportation Arranged Ambulance Patient choice offered Yes List Provided Yes [facility] List Provided [facility] Facility DC Planning Complete Discharge Milestones Yes DISCHARGE PLANNING NOTE Discharge plan: Discharge orders noted. Transportation arranged for 2pm pickling operator. Lior updated on transport time. CRF and 7000 sent via [employer]. - Bethany Lucero RN 07/05/25 10:29 AM [facility] Miscellaneous Notes* Telephone Encounter - Lashanda Ruiz - 07/05/2025 10:12 AM EDT Rat Farmer spoke with patient's daughter to schedule a new Patient appointment. She states she will call back to schedule. Looking to get a second opinion. Office number provided documented in this [facility] Telephone encounter Note* Telephone Encounter - Lashanda Ruiz - 07/05/2025 10:12 AM EDT Rat Farmer spoke with patient's daughter to schedule a new Patient appointment. She states she will call back to schedule. Looking to get a second opinion. Office number provided [facility] Hospital course Narrative* Felix Hallman MD - 07/05/2025 6:54 AM EDT Images from the original note were not included. [facility] INTERNAL MEDICINE [facility] - [address] [place] [phone] Hospital Medicine Discharge Summary Patient: Cuca Dee Date of : 1945 Room: [facility] Encounter date: 07/05/25 Hospital Day: 4 DATE OF ADMISSION: 07/02/2025 DATE OF DISCHARGE:07/05/2025 DISCHARGE DIAGNOSES Principal Problem: Intractable nausea and vomiting Active Problems: 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 mellitus ([facility]) Chronic diastolic congestive heart failure ([facility]) Weakness Iron deficiency anemia Adnexal mass CONSULTANTS None PCP: Vj Gray, BRUSH WORKER-SEWER CONNECTOR PROCEDURES None HOSPITAL COURSE SUMMARY Ms. Cuca Dee is a pleasant 80-year-old female who came from [facility] they did not haveany open beds there for vomiting and generalized weakness. Patient was discharged from another local hospital on June 27 where she had a UTI. Patient was also hypercalcemic at that time and altered mentation. Patient was discharged home on Augmentin unsure she was actually taking it. Patient isnormally wheelchair-bound with chronic respiratory failure and is on 3 L of oxygen around the clockwith normal SpO2. Patient was having intermittent confusion in the emergency room and was recommended to be admitted for generalized weakness as well as intractable vomiting. Chest x-ray in the ER was negative CT abdomen shows a large left adnexal cyst increased in size since prior evaluation and aknown severe changes to right hip pass will [...] was negative PT and OT seen recommend alf facility. Patient was given 1 day of IV fluids did cover for UTI with Rocephin since urine culture was negative did initially have on clear liquids advance diet as tolerated. Electrolytes were replaced. Patient is stable to discharge to alf facility was having some anxiety did start BuSpar yesterday which did help continued with home Lantusdose will order Mag-Ox at time of discharge [...] She is ill-appearing (chronic). She is not toxic- appearing or diaphoretic. HENT: Head: Normocephalic and atraumatic. [...] CLINICAL INFORMATION: Evaluate for Ovarian Torsion. TECHNIQUE: Real- time transabdominal sonographic evaluation of the pelvis was performed with villarreal scale and color flow imaging. The patient could not tolerate transvaginal imaging which severely compromises sensitivity the examination. Real time villarreal scale, color flow imaging and duplex spectral Doppler waveform analysis evaluation wasperformed of the major arterial inflow and venous [...] represent the abnormality described previous CT examination. Thereis blood flow along the periphery of this lesion, however, it cannot be said with certainty whetherthe flow is in the ovarian tissue. The [...] this is ovarian in nature. Blood flow isdocumented along the periphery of this lesion, however, [...] the skull base and in the calvarium showno definite abnormality. Note is made of a right-sided ventriculostomy with a right frontal approach that demonstrates no acute complication. Tip of this is located in the region of the right foramenof Monro. The orbits are lens replacements.. The paranasal sinuses are clear. The mastoid air cellsare clear. IMPRESSION: Ventriculomegaly is stable with a right- sided frontal approach ventriculostomy appearing stable. No acute [...] adenopathy Peritoneum:No free air or free fluid Retrope ritoneum:No adenopathy Vessels: Atherosclerotic changes in the aorta no aneurysm Abdominal wall:NON DESTRUCTIVE TESTER shunt tube Bones:Severe changes in the right hip possible prior intertrochanteric fracture which hasnot undergone fixation. IMPRESSION: * Large left adnexal cyst increased in size since previous examination pelvic ultrasound is recommended for further evaluation. * Severe changes in the right hip possible prior intertrochanteric fracture which has not undergone fixation. * Small to moderate-sizedhiatal hernia stomach All CT scans at this [...] * Foci of air within the endometrial cavity,nonspecific. Correlate for recent endometrial biopsy/procedure. Differential consideration [...] lesser trochanteric avulsion fracture. DISCHARGE INSTRUCTION Disposition: correction facility Condition:Stable Activity: activity as tolerated Diet: [...] (3 mL) insulin pen Commonly known as: LANTUS SEMGLEE Inject 10 Units under the skin [...] Your Medications These medications were sent to [id number] - [facility] [address] [place] [address] [id number] insulin glargine 100 unit/mL (3 mL) insulin pen Information about where to get these medications is not yet available Ask your nurse or doctor about these medications busPIRone 5 mg tablet ferrous sulfate 325 (65 FE) MG tablet magnesium oxide 400 mg tablet polyethylene glycol 17 gram packet >30 minutes were spent on discharging this patient. KAIDEN Magana 07/05/2025 5:09 PM [facility] Internal Medicine [...] discharged in stable condition. Follow up with nurse gynecology Onc as outpatient for left adnexal mass. documented in this encounterCommunity [facility]08-[facility]-2025 Plan of care note * Plan of Care - Kristy Galarza RN - 07/04/2025 10:00 PM EDT Problem: Pain Goal: Patient goal is pain score less than 4, able to rest, and participant in treatment plan as appropriate Description: INTERVENTIONS: 1. Encourage patient or legal patient relations representative to report early pain and ask [...] per policy 9. Teach patient or legal patient relations representative interventions for comforting Outcome: Progressing Note: [...] at the bedside 7. Instruct patient/ patient patient relations representative about use of safety devices 8. Include patient/ patient patient relations representative in decisions related to safety Outcome: [...] hygiene technique. 7. Identify and instruct patient/patient patient relations representative in use of appropriate isolation precautionsfor identified infection/symptoms. 8. Provide and discuss with patient/patient patient relations representative on educational MDRO sheet. 9. Encourage and monitor nutritional status daily and consult form setter metal road forms if indicated. 10. Implement neutropenic guidelines as needed. Outcome: Progressing Note: Evaluation of progress towards goal: Patient VS WNL, remains afebrile for shift. Continue to monitor. Problem: Knowledge Deficit Goal: Patient/patient patient relations representative demonstrates understanding of disease process, treatment plan,medications, and discharge instructions Description: INTERVENTIONS 1. Complete [...] anxiety both physical and emotional (heart palpitations, chestpain, shortness of breath, headaches, nausea, feeling jumpy, [...] Collaborate with ancillary departments 14. Include patient/patient patient relations representative in decisions related to anxiety Outcome: [...] care 6. Collaborate with pastoral/spiritual care, social sciences research scientist, mental health counselor as needed. 7. Instruct patient on diversional activities such as physical activity, distraction, and deep breathing exercises to assist with coping 8. Involve patient's patient relations representative in care Outcome: Progressing Note: Evaluation [...] educator as appropriate 6. Communicate referral to form setter metal road forms as appropriate 7. Collaborate with case management/social sciences research scientist for discharge needs Outcome: Progressing Note: Evaluation [...] supplement as ordered 13. Collaborate with clinical form setter metal road forms 14. Include patient/ patient's patient relations representative in decisions related to nutrition Outcome: [...] be free from fall Description: Interventions: 1. [place] to environment 2. Hourly rounds addressing the [...] non-skid footwear 11. Teach patient and patient patient relations representative to maintain environment for safety and [...] (cane, walker) within reach 19. Request patient patient relations representative bring adaptive equipment/mobility aids from home or obtain and provide as needed 20. Consult pharmacy regarding effects of med's affecting mobility, cognition, and alternatives 21. Obtain physician order for PT if risk factors associated with mobility are present 22. Obtain physician order for OT as appropriate 23. Utilize diversional activities 24. Educate patient and patient patient relations representative how to maintain a safe environment during visitationtimes (notify nurse prior to leaving bedside) 25. Consider appropriateness of medical or non-emergency medical technician/driver 26. Set up voiding schedule as appropriate [...] Handoff to next level of care provider (care director rn, PCP, home care). 5. Complete follow up [...] Continue to assess for when appropriate. [facility] [id number] Progress note* Discharge Planning Note - Jeannie Paris - 07/04/2025 3:59 PM EDT DISCHARGE PLANNING NOTE Prior Auth approved for admission to : Lee Gambino P# ; F# Approval # [id number] Valid for Dates: 07/04/25 - 07/10/25 [facility] [id number] Progress note* Discharge Planning Note - Jeannie Paris - 07/04/2025 1:42 PM EDT DISCHARGE PLANNING NOTE Prior auth submitted to: [employer] Via: VGTelriley On behalf of : Lee Gambino P# ; F# REF# [id number] [facility] [id number] Nurse Note* Cesilia Hand RN - 07/04/2025 1:00 PM EDT Patient noted to have pulled out IV and telemetry. Rat Farmer completed adl's. Patient refused to replace another IV and/ lunch. Jazmine Do CNP advised and see new order. WorldAPP [id number] Progress note* Discharge Planning Note - Bethany Lucero RN - 07/04/2025 12:21 PM EDT Images from the original note [...] discharge planning Discharge Disposition SNF SNF Name [facility] ([facility]) [phone] Fax SNF Accepted? -- [referral sent] Does the patient need discharge transportation arranged? Yes Transportation Arranged Ambulance DC Planning Complete Discharge Milestones Yes Respiratory Indicator Does the patient currently have home respiratory equipment? No Will the patient need home respiratory equipment upon discharge? No, it is expected that patient will NOT discharge home with respiratory DME needs Discharge plan: [facility] Home with [facility] (resume services) [facility] to perform on-site this morning. CN called and left a voicemail for admissions to confirm if onsite was completed/if patient can be accepted. [facility] [facility] pending bed availability.Once accepting facility established, will start insurance auth. - Bethany Lucero RN 07/04/25 12:28 PM Update: CN spoke with [facility] admissions, they have accepted patient, ok to start precert. Cn called patient's daughter Ileana, agreeable with plan of care. [facility] tasked to start insurance auth for [facility]. - Bethany Lucero RN 07/04/25 1:29 PM [facility]08-20-[facility] History of Present illness Narrative* Felix Hallman MD - 07/04/2025 10:18 AM EDT Images from the original note were not included. [facility]IC[facility] - MED SURG [address] [place] [phone] Hospital Medicine Progress Note Patient: Cuca Dee Date of : 1945 Room: [facility] PCP: KAIDEN Hopkins Admission date: 07/02/2025 5:45 PM Encounter date: 07/04/25 Hospital Day: 3 SUBJECTIVE Interval History: Status: improved. No overnight events. Patient reports feels ok today. Denies any chest pain/pressure or shortness of breath. Denies any nausea reports that she feels it was the eggs. Upset that she can't go to [facility]. Patient is anxious about where she is [...] She is ill-appearing (chronic). She is not toxic- appearing or diaphoretic. HENT: Head: Normocephalic and atraumatic. [...] CLINICAL INFORMATION: Evaluate for Ovarian Torsion. TECHNIQUE: Real- time transabdominal sonographic evaluation of the pelvis was performed with villarreal scale and color flow imaging. The patient could not tolerate transvaginal imaging which severely compromises sensitivity the examination. Real time villarreal scale, color flow imaging and duplex spectral Doppler waveform analysis evaluation wasperformed of the major arterial inflow and venous [...] represent the abnormality described previous CT examination. Thereis blood flow along the periphery of this lesion, however, it cannot be said with certainty whetherthe flow is in the ovarian tissue. The [...] this is ovarian in nature. Blood flow isdocumented along the periphery of this lesion, however, [...] the skull base and in the calvarium showno definite abnormality. Note is made of a right-sided ventriculostomy with a right frontal approach that demonstrates no acute complication. Tip of this is located in the region of the right foramenof Monro. The orbits are lens replacements.. The paranasal sinuses are clear. The mastoid air cellsare clear. IMPRESSION: Ventriculomegaly is stable with a right- sided frontal approach ventriculostomy appearing stable. No acute [...] adenopathy Peritoneum:No free air or free fluid Retrope ritoneum:No adenopathy Vessels: Atherosclerotic changes in the aorta no aneurysm Abdominal wall:NON DESTRUCTIVE TESTER shunt tube Bones:Severe changes in the right hip possible prior intertrochanteric fracture which hasnot undergone fixation. IMPRESSION: * Large left adnexal cyst increased in size since previous examination pelvic ultrasound is recommended for further evaluation. * Severe changes in the right hip possible prior intertrochanteric fracture which has not undergone fixation. * Small to moderate-sizedhiatal hernia stomach All CT scans at this [...] * Foci of air within the endometrial cavity,nonspecific. Correlate for recent endometrial biopsy/procedure. Differential consideration [...] 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 mellitus ([facility]) Chronic diastolic congestive heart failure ([facility]) Weakness Iron deficiency anemia Adnexal mass ASSESSMENT [...] planning: Full code, will need another day. group home coming to do a bed side evaluation today. Patient is anxious about where she is going and when she is going will add small dose of BuSpar can hold for sedation. Medically Ready for Discharge: Anticipated Tomorrow KAIDEN Magana 07/04/2025 4:11 PM [facility] 7AM-7PM & 7PM-7AM: EpicChat or page through On-Call Finder. KAIDEN Magana 07/04/25 [id number] Physician Attestation I, Felix Hallman MD, personally [...] continue to hold Lasix [facility] Progress note* PT/OT/TRAFFIC SERGEANT - José Luis Cheng PT - 07/04/2025 9:50 AM EDT Physical Therapy Reason For Patient Refusal (comment required): (P) Pain (Pt c/o back pain and requesting to defer therapy until she has her SNF consult today. Will check back later with pt) [facility] Progress note* PT/OT/TRAFFIC SERGEANT - DANDRE Escobar/Trice - 07/04/2025 9:49 AM EDT Occupational Therapy OT Type of Visit: Patient refusal Pt had just finished eating breakfast upon arrival. Pt c/o low back pain and it was suggested by therapist she transfer to the chair to see if relieves the pain. Pt began getting upset about not wanting to leave the bed and do therapy this morning. Pt stating she wants to talk to the halfway rep. When they get here and then do therapy. OT encouraged sitting at EOB for simple ADLs, however, pt again declined this. OT to defer treatment at this time and will attempt again at a later time. N(i)² Work Phone: 1(465) 973-141208-20-2025 Plan of care note* Plan of Care - Sofia Martin RPH - 07/04/2025 9:34 AM EDT Problem: Medication Description: If medication is necessary, [...] also shows no change in renal function. N(i)² Work Phone: 1(443) 724-995408-20-2025 Plan of care note* Plan of Care - Cesilia Hand RN - 07/04/2025 7:23 AM EDT Problem: Pain Goal: Patient goal is pain score less than 4, able to rest, and participant in treatment plan as appropriate Description: INTERVENTIONS: 1. Encourage patient or legal patient relations representative to report early pain and ask [...] per policy 9. Teach patient or legal patient relations representative interventions for comforting Note: Evaluation of [...] at the bedside 7. Instruct patient/ patient patient relations representative about use of safety devices 8. Include patient/ patient patient relations representative in decisions related to safety Note: Evaluation of progress towards goal: safety precautions in place. [facility] Plan of care note* Plan of Care - Kristy Galarza RN - 07/03/2025 8:58 PM EDT Problem: Pain Goal: Patient goal is pain score less than 4, able to rest, and participant in treatment plan as appropriate Description: INTERVENTIONS: 1. Encourage patient or legal patient relations representative to report early pain and ask [...] per policy 9. Teach patient or legal patient relations representative interventions for comforting Outcome: Progressing Note: [...] at the bedside 7. Instruct patient/ patient patient relations representative about use of safety devices 8. Include patient/ patient patient relations representative in decisions related to safety Outcome: [...] hygiene technique. 7. Identify and instruct patient/patient patient relations representative in use of appropriate isolation precautionsfor identified infection/symptoms. 8. Provide and discuss with patient/patient patient relations representative on educational MDRO sheet. 9. Encourage and monitor nutritional status daily and consult form setter metal road forms if indicated. 10. Implement neutropenic guidelines as needed. Outcome: Progressing Note: Evaluation of progress towards goal: Patient VS WNL, remains afebrile for shift. Continue to monitor. Problem: Knowledge Deficit Goal: Patient/patient patient relations representative demonstrates understanding of disease process, treatment plan,medications, and discharge instructions Description: INTERVENTIONS 1. Complete [...] anxiety both physical and emotional (heart palpitations, chestpain, shortness of breath, headaches, nausea, feeling jumpy, [...] Collaborate with ancillary departments 14. Include patient/patient patient relations representative in decisions related to anxiety Outcome: [...] care 6. Collaborate with pastoral/spiritual care, social sciences research scientist, mental health counselor as needed. 7. Instruct patient on diversional activities such as physical activity, distraction, and deep breathing exercises to assist with coping 8. Involve patient's patient relations representative in care Outcome: Progressing Note: Evaluation [...] educator as appropriate 6. Communicate referral to form setter metal road forms as appropriate 7. Collaborate with case management/social sciences research scientist for discharge needs Outcome: Progressing Note: Evaluation [...] supplement as ordered 13. Collaborate with clinical form setter metal road forms 14. Include patient/ patient's patient relations representative in decisions related to nutrition Outcome: [...] Moderate - High Risk Fall Score Description: [place] Fall Score of =/> 25 or indicated by [facility] Assessment Goal: Patient should be free from fall Description: Interventions: 1. [place] to environment 2. Hourly rounds addressing the [...] non-skid footwear 11. Teach patient and patient patient relations representative to maintain environment for safety and [...] (cane, walker) within reach 19. Request patient patient relations representative bring adaptive equipment/mobility aids from home or obtain and provide as needed 20. Consult pharmacy regarding effects of med's affecting mobility, cognition, and alternatives 21. Obtain physician order for PT if risk factors associated with mobility are present 22. Obtain physician order for OT as appropriate 23. Utilize diversional activities 24. Educate patient and patient patient relations representative how to maintain a safe environment during visitationtimes (notify nurse prior to leaving bedside) 25. Consider appropriateness of medical or non-emergency medical technician/driver 26. Set up voiding schedule as appropriate [...] Handoff to next level of care provider (care director rn, PCP, home care). 5. Complete follow up [...] goal: Continue to assess for when appropriate. WorldAPP [id number] Consult note* Waleska Ball, IRINEO - 07/03/2025 2:27 PM EDTAssociated Order(s): IP CONSULT TO NUTRITION SERVICES Summary: Nutrition Assessment NUTRITION ADULT INITIAL EVALUATION NUTRITION ASSESSMENT: Consult received regarding Type 2 DM, and predicted sub- optimal PO intake related to c/o n/v. 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 mellitus ([facility]) Chronic diastolic congestive heart failure ([facility]) Weakness Iron deficiency anemia Past Medical History: Past Medical History: Diagnosis Date Anemia Arthritis Asthma very mild, no inhaler use Cataract Dental disease Depression Diabetes mellitus ([facility]) Diabetes mellitus type 2, controlled ([facility]) Encephalitis Foot fracture, left GERD (gastroesophageal reflux disease) Heart murmur HLD (hyperlipidemia) Hypertension Incontinence Injury of back Insulin dependent diabetes mellitus Kidney failure STAGE 4 Lumbar spondylolysis Murmur Obesity CHELSEA (obstructive sleep apnea) no machine Peptic ulceration Peripheral vascular disease Shortness of breath Stroke ([facility]) 02/27/2024 TIA (transient ischemic attack) Upper respiratory infection UTI (urinary tract infection) Visual impairment Wears dentures Past Surgical History: Past Surgical History: Procedure Laterality Date BREAST BIOPSY Right 03/01/2023 ULT BIOPSY CATARACT EXTRACTION SECTION SECTION 03/14/1974 EGD N/A 10/17/2019 Performed by Sarai Bell DO at [facility] H-PERCUTANEOUS CORONARY INTERVENTION HYSTEROSCOPY DILATION CURETTAGE MYOSURE N/A 01/29/2021 Performed by Jv Briones MD at [facility] INJECTION BLOCK EPIDURAL CAUDAL STEROID N/A 08/14/2022 Performed by Arnulfo Morgan MD at [facility] INJECTION BLOCK EPIDURAL CAUDAL STEROID N/A 06/06/2021 Performed by Arnulfo Morgan MD at [facility] INJECTION BLOCK EPIDURAL CAUDAL STEROID N/A 04/25/2021 Performed by Arnulfo Morgan MD at [facility] INJECTION CAUDAL EPIDURAL WITH CATHETER, STEROID N/A 05/03/2020 Performed by Arnulfo Morgan MD at [facility] INJECTION CAUDAL EPIDURAL WITH CATHETER, STEROID N/A 11/24/2019 Performed by Arnulfo Morgan MD at [facility] INJECTION CAUDAL EPIDURAL WITH CATHETER, STEROID N/A 04/21/2019 Performed by Arnulfo Morgan MD at [facility] NERVE BLOCK Bilateral L 4/5, 5/1 Bilateral 08/18/2019 Performed by Arnulfo Morgan MD at [facility] NERVE BLOCK Bilateral L 4/5, 5/1 Bilateral 06/23/2019 Performed by Arnulfo Morgan MD at [facility] STEROID EPI 1 WITH SEDATION Right L 4, 5 NR Right 03/17/2019 Performed by Arnulfo Morgan MD at [facility] STEROID EPI 1 WITH SEDATION: right L45 nroot Right 08/15/2018 Performed by Arnulfo Morgan MD at [facility] LEFT L4, AND 5 NERVE ROOT INJECTION 2 OF 2 Left 07/22/2018 Performed by Arnulfo Morgan MD at [facility] LEFT L4, AND L5 NERVE ROOT 1 OF 2 Left 07/04/2018 Performed by Arnulfo Morgan MD at [facility] SHUNT INSERTION TONSILLECTOMY AGE 4 Transcutaneous aortic valve replacement/Transfemoral/Kwan N/A 08/17/2023 Performed by Chava Norris MD at [facility] Valvuloplasty aortic N/A 06/03/2023 Performed by Chava Norris MD at [facility] Social/ Cognitive/ Economic: Pt lives with her daughter Allergies: No Known Allergies Nutrition Focused Physical Findings 1. Extremities, Muscles, and Bones 2. Skin: Skin Color: [place] (07/03/25 0750) Skin Temp: Warm (07/03/25 0750) [...] 16 12/04/2024 Lab Results Component Value Date [id number] 187 02/13/2025 Lab Results Component Value Date [...] pen 10 Units 10 Units subcutaneous Nightly Jazmine Do BRUSH WORKER-SEWER CONNECTOR insulin lispro (HumaLOG) injection 1-4 Units 1-4 [...] 17 g 17 g oral Daily Jazmine Do BRUSH WORKER- SEWER CONNECTOR 17 g at 07/03/25 1152 promethazine (PHENERGAN) [...] Continuous Felix Hallman MD 50 mL/hr at 07/02/258 50 mL/hr at 07/02/252047 traZODone (DESYREL) tablet [...] (185 lb) Percent Usual Body Weight: 96% [place] Body Weight: 57 (07/02/25 1815) Percent [place] Body Weight: 138% Body mass index is [...] Intake/Output Summary (Last 24 hours) at 07/03/2025 142 Last data filed at 07/03/2025 0930 Gross per 24 hour Intake 240 ml Output 900 ml Net -660 ml Oral Supplemental Intake/ Acceptance: Ensure Compact changed to Ensure Clear TID Nutrition Education Needs: No Comments: pt denies need Estimated Needs Based on Comparative Standards: Estimated Energy Needs: 0144-9190 kcals daily. Method and weight used: 25-30 kcal/kg IBW Estimated Protein Needs: 68-114 grams daily. Method and weight used: 1.2-2 g protein/kg IBW Estimated Fluid Needs: 3867-9917 ml daily. Method weight used: 1 ml/kcal [...] estimated protein and kcal needs. Pt told teletypewriter operator that Breakfast did not sit well with her either. Pt withh/o Type 2 DM, pt stated last A1c from Endocrinology office was below 7%, pt wears a Dex Com CGM. Pt's BG ranging from 99-204, Humalog ssc ac and hs ordered, pt reports taking Levemir 20 units and Humalog ssc ac at home. Notified SEWER CONNECTOR of home Levemir dose as not on med rec, ordered Lantus 10 units to start tonight. NUTRITION INTERVENTIONS: Meals & snacks: Clear liquid diet Supplements (medical food, vitamin or mineral): Ensure Clear TID Coordination of nutrition care: discussed insulin needs with SEWER CONNECTOR Coordination of nutrition care: reviewed home insulin regimen with pt Goals: Tolerates oral intake RECOMMENDATIONS: Continue Clear Liquid diet, will add Ensure Clear TID. Advance diet to Regular as tolerance permits. Will monitor PO tolerance as diet advanced. Nutrition Monitoring and Evaluation: Fluid/Beverage Intake (1.2.1), Food Intake (1.2.2), and Weight Change, Lab Values and POC Waleska Ball RD, LD, CDCES [facility] Consult note* IRINEO Cheng - 07/03/2025 2:27 PM EDTAssociated Order(s): IP CONSULT TO NUTRITION SERVICES Summary: Nutrition Assessment NUTRITION ADULT INITIAL EVALUATION NUTRITION ASSESSMENT: Consult received regarding Type 2 DM, and predicted sub- optimal PO intake related to c/o n/v. 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 mellitus ([facility] Chronic diastolic congestive heart failure ([facility]) Weakness Iron deficiency anemia Past Medical History: Past Medical History: Diagnosis Date Anemia Arthritis Asthma very mild, no inhaler use Cataract Dental disease Depression Diabetes mellitus ([facility]) Diabetes mellitus type 2, controlled ([facility]) Encephalitis Foot fracture, left GERD (gastroesophageal reflux disease) Heart murmur HLD (hyperlipidemia) Hypertension Incontinence Injury of back Insulin dependent diabetes mellitus Kidney failure STAGE 4 Lumbar spondylolysis Murmur Obesity CHELSEA (obstructive sleep apnea) no machine Peptic ulceration Peripheral vascular disease Shortness of breath Stroke ([facility] 02/27/2024 TIA (transient ischemic attack) Upper respiratory infection UTI (urinary tract infection) Visual impairment Wears dentures Past Surgical History: Past Surgical History: Procedure Laterality Date BREAST BIOPSY Right 03/01/2023 ULT BIOPSY CATARACT EXTRACTION SECTION SECTION 03/14/1974 EGD N/A 10/17/2019 Performed by Sarai Bell DO at [facility] H-PERCUTANEOUS CORONARY INTERVENTION HYSTEROSCOPY DILATION CURETTAGE MYOSURE N/A 01/29/2021 Performed by Jv Briones MD at [facility] INJECTION BLOCK EPIDURAL CAUDAL STEROID N/A 08/14/2022 Performed by Arnulfo Morgan MD at [facility] INJECTION BLOCK EPIDURAL CAUDAL STEROID N/A 06/06/2021 Performed by Arnulfo Morgan MD at [facility] INJECTION BLOCK EPIDURAL CAUDAL STEROID N/A 04/25/2021 Performed by Arnulfo Morgan MD at [facility] INJECTION CAUDAL EPIDURAL WITH CATHETER, STEROID N/A 05/03/2020 Performed by Arnulfo Moragn MD at [facility] INJECTION CAUDAL EPIDURAL WITH CATHETER, STEROID N/A 11/24/2019 Performed by Arnulfo Morgan MD at [facility] INJECTION CAUDAL EPIDURAL WITH CATHETER, STEROID N/A 04/21/2019 Performed by Arnulfo Morgan MD at [facility] NERVE BLOCK Bilateral L 4/5, 5/1 Bilateral 08/18/2019 Performed by Arnulfo Morgan MD at [facility] NERVE BLOCK Bilateral L 4/5, 5/1 Bilateral 06/23/2019 Performed by Arnulfo Morgan MD at [facility] STEROID EPI 1 WITH SEDATION Right L 4, 5 NR Right 03/17/2019 Performed by Arnulfo Morgan MD at [facility] INJECTION STEROID EPI 1 WITH SEDATION: right L45 nroot Right 08/15/2018 Performed by Arnulfo Morgan MD at [facility] LEFT L4, AND 5 NERVE ROOT INJECTION 2 OF 2 Left 07/22/2018 Performed by Arnulfo Morgan MD at [facility] LEFT L4, AND L5 NERVE ROOT 1 OF 2 Left 07/04/2018 Performed by Arnulfo Morgan MD at [facility] SHUNT INSERTION TONSILLECTOMY AGE 4 Transcutaneous aortic valve replacement/Transfemoral/Kwan N/A 08/17/2023 Performed by Chava Norris MD at [facility] Valvuloplasty aortic N/A 06/03/2023 Performed by Chava Norris MD at [facility] Social/ Cognitive/ Economic: Pt lives with her daughter Allergies: No Known Allergies Nutrition Focused Physical Findings 1. Extremities, Muscles, and Bones 2. Skin: Skin Color: [place] (07/03/25 0750) Skin Temp: Warm (07/03/25749) 3. Wound: 4. Gastrointestinal: Abdomen Assessment: Soft; Nondistended (07/03/25749) 5. Edema: 6. Overall Appearance: overweight Labs: [...] 16 12/04/2024 Lab Results Component Value Date [id number] 187 02/13/2025 Lab Results Component Value Date [...] Q24H Felix Hallman MD Stopped at 07/02/25 2119 cyanocobalamin tablet 1,000 mcg 1,000 mcg oral Daily Felix Hallman MD 1,000 mcg at 07/03/25 0852 dextrose (GLUTOSE) 40 % gel 15 g 15 g oral PRN Felix Hallman MD dextrose (GLUTOSE) 40 % gel 15 g 15 g oral PRN Felix Hallman MD dextrose 5 % (D5W) infusion 100 mL/hr intravenous Continuous WILFREDON Felix Hallman MD dextrose 5 % (D5W) infusion 100 mL/hr intravenous Continuous WILFREDON Felix Hallman MD dextrose 50 % in [...] pen 10 Units 10 Units subcutaneous Nightly Jazmine Do, ALICE-BARTOLO insulin lispro (HumaLOG) injection 1-4 Units 1-4 [...] 17 g 17 g oral Daily Jazmine Do APRN- SEWER CONNECTOR 17 g at 07/03/25 1152 promethazine (PHENERGAN) [...] Continuous Felix Hallman MD 50 mL/hr at 07/02/258 50 mL/hr at 07/02/252047 traZODone (DESYREL) tablet [...] (185 lb) Percent Usual Body Weight: 96% [place] Body Weight: 57 (07/02/25 1815) Percent [place] Body Weight: 138% Body mass index is [...] Based on Comparative Standards: Estimated Energy Needs: 0424-4470 kcals daily. Method and weight used: 25-30 kcal/kg IBW Estimated Protein Needs: 68-114 grams daily. Method and weight used: 1.2-2 g protein/kg IBW Estimated Fluid Needs: 6759-7336 ml daily. Method weight used: 1 ml/kcal [...] estimated protein and kcal needs. Pt told teletypewriter operator that Breakfast did not sit well with her either. Pt withh/o Type 2 DM, pt stated last A1c from Endocrinology office was below 7%, pt wears a Dex Com CGM. Pt's BG ranging from 99-204, Humalog ssc ac and hs ordered, pt reports taking Levemir 20 units and Humalog ssc ac at home. Notified SEWER CONNECTOR of home Levemir dose as not on med rec, ordered Lantus 10 units to start tonight. NUTRITION INTERVENTIONS: Meals & snacks: Clear liquid diet Supplements (medical food, vitamin or mineral): Ensure Clear TID Coordination of nutrition care: discussed insulin needs with SEWER CONNECTOR Coordination of nutrition care: reviewed home insulin regimen with pt Goals: Tolerates oral intake RECOMMENDATIONS: Continue Clear Liquid diet, will add Ensure Clear TID. Advance diet to Regular as tolerance permits. Will monitor PO tolerance as diet advanced. Nutrition Monitoring and Evaluation: Fluid/Beverage Intake (1.2.1), Food Intake (1.2.2), and Weight Change, Lab Values and POC Waleska Ball RD, [place], [facility] documented in this encounter[facility] Progress note* PT/OT/TRAFFIC SERGEANT - DANDRE Escobar/Trice - 07/03/2025 1:39 PM EDT Occupational Therapy Evaluation (co-eval with PT for patient safety) Discharge Recommendations for Safe Patient Transition OT Discharge Disposition Recommendation: Post acute - moderate OT Post Acute Moderate Rehab Needs: Recommend moderate intensity rehab, Tolerate 1-2 hrs of therapy3-5 days/wk, Subacute or chronic functional impairment Current Impairments Informing Therapy Recommendation: Ambulation status/safety, Fall risk, ADL status, Endurance level Wire Bender Support for-: Mobility Deficits, ADL Deficits Therapy Plan Need for skilled Occupational Therapy to address deficits in ADL independence and functional mobility due to a status decline resulting from weakness. Past Medical History: Diagnosis Date Anemia Arthritis Asthma very mild, no inhaler use Cataract Dental disease Depression Diabetes mellitus ([facility]) Diabetes mellitus type 2, controlled ([facility]) Encephalitis Foot fracture, left GERD (gastroesophageal reflux disease) Heart murmur HLD (hyperlipidemia) Hypertension Incontinence Injury of back Insulin dependent diabetes mellitus Kidney failure STAGE 4 Lumbar spondylolysis Murmur Obesity CHELSEA (obstructive sleep apnea) no machine Peptic ulceration Peripheral vascular disease Shortness of breath Stroke ([facility]) 02/27/2024 TIA (transient ischemic attack) Upper respiratory infection UTI (urinary tract infection) Visual impairment Wears dentures Past Surgical History: Procedure Laterality Date BREAST BIOPSY Right 03/01/2023 ULT BIOPSY CATARACT EXTRACTION SECTION SECTION 03/14/1974 EGD N/A 10/17/2019 Performed by Sarai Bell DO at [facility] H-PERCUTANEOUS CORONARY INTERVENTION HYSTEROSCOPY DILATION CURETTAGE MYOSURE N/A 01/29/2021 Performed by Jv Briones MD at [facility] INJECTION BLOCK EPIDURAL CAUDAL STEROID N/A 08/14/2022 Performed by Arnulfo Morgan MD at [facility] INJECTION BLOCK EPIDURAL CAUDAL STEROID N/A 06/06/2021 Performed by Arnulfo Morgan MD at [facility] INJECTION BLOCK EPIDURAL CAUDAL STEROID N/A 04/25/2021 Performed by Arnulfo Morgan MD at [facility] INJECTION CAUDAL EPIDURAL WITH CATHETER, STEROID N/A 05/03/2020 Performed by Arnulfo Morgan MD at [facility] INJECTION CAUDAL EPIDURAL WITH CATHETER, STEROID N/A 11/24/2019 Performed by Arnulfo Morgan MD at [facility] INJECTION CAUDAL EPIDURAL WITH CATHETER, STEROID N/A 04/21/2019 Performed by Arnulfo Morgan MD at [facility] NERVE BLOCK Bilateral L 4/5, 5/1 Bilateral 08/18/2019 Performed by Arnulfo Morgan MD at [facility] INJECTION MEDIAL BRANCH NERVE BLOCK Bilateral L 4/5, 5/1 Bilateral 06/23/2019 Performed by Arnulfo Morgan MD at [facility] INJECTION STEROID EPI 1 WITH SEDATION Right L 4, 5 NR Right 03/17/2019 Performed by Arnulfo Morgan MD at [facility] INJECTION STEROID EPI 1 WITH SEDATION: right L45 nroot Right 08/15/2018 Performed by Arnulfo Morgan MD at [facility] LEFT L4, AND 5 NERVE ROOT INJECTION 2 OF 2 Left 07/22/2018 Performed by Arnulfo Morgan MD at [facility] LEFT L4, AND L5 NERVE ROOT 1 OF 2 Left 07/04/2018 Performed by Arnulfo Morgan MD at [facility] INSERTION TONSILLECTOMY AGE 4 Transcutaneous aortic valve replacement/Transfemoral/Kwan N/A 08/17/2023 Performed by Chava Norris MD at [facility] Valvuloplasty aortic N/A 06/03/2023 Performed by Chava Norris MD at [facility] 6 Clicks: Daily [...] socks, gait belt Weight Bearing Status: FWB Telemetry/Childhood Development Teacher: Yes Oxygen Used: Room air Other: Fall [...] reach for bed rail. Min assist given tocomplete sit with upper body. Pt then able [...] mellitus (CMS-HCC) Chronic diastolic congestive heart failure ([facility]) Weakness Iron deficiency anemia [facility] Progress note* PT/OT/TRAFFIC SERGEANT - Dominique Aries, PT - 07/03/2025 12:43 PM EDT Physical Therapy Evaluation (co-eval w/ OT for increased pt safety d/t impaired mobility) Discharge Recommendations for Safe Patient Transition PT Discharge Disposition Recommendation: Post acute - moderate PT Post Acute Moderate Rehab Needs: Recommend moderate intensity rehab, Tolerate 1-2 hrs of therapy3-5 days/wk, Subacute or chronic functional impairment Current Impairments Informing Therapy Recommendation: Ambulation status/safety, Fall risk, ADL status, Endurance level Wire Bender Support for-: Mobility Deficits, ADL Deficits Therapy Plan Need for skilled Physical Therapy to address deficits in functional mobility due to a status decline resulting from generalized weakness/decreased activity macario d/t intractable n/v. Past Medical History: Diagnosis Date Anemia Arthritis Asthma very mild, no inhaler use Cataract Dental disease Depression Diabetes mellitus ([facility] Diabetes mellitus type 2, controlled ([facility]) Encephalitis Foot fracture, left GERD (gastroesophageal reflux disease) Heart murmur HLD (hyperlipidemia) Hypertension Incontinence Injury of back Insulin dependent diabetes mellitus Kidney failure STAGE 4 Lumbar spondylolysis Murmur Obesity CHELSEA (obstructive sleep apnea) no machine Peptic ulceration Peripheral vascular disease Shortness of breath Stroke ([facility]) 02/27/2024 TIA (transient ischemic attack) Upper respiratory infection UTI (urinary tract infection) Visual impairment Wears dentures Past Surgical History: Procedure Laterality Date BREAST BIOPSY Right 03/01/2023 ULT BIOPSY CATARACT EXTRACTION SECTION SECTION 03/14/1974 EGD N/A 10/17/2019 Performed by Sarai Bell DO at [facility] H-PERCUTANEOUS CORONARY INTERVENTION HYSTEROSCOPY DILATION CURETTAGE MYOSURE N/A 01/29/2021 Performed by Jv Briones MD at [facility] INJECTION BLOCK EPIDURAL CAUDAL STEROID N/A 08/14/2022 Performed by Arnulfo Morgan MD at [facility] INJECTION BLOCK EPIDURAL CAUDAL STEROID N/A 06/06/2021 Performed by Arnulfo Morgan MD at [facility] INJECTION BLOCK EPIDURAL CAUDAL STEROID N/A 04/25/2021 Performed by rAnulfo Morgan MD at [facility] INJECTION CAUDAL EPIDURAL WITH CATHETER, STEROID N/A 05/03/2020 Performed by Arnulfo Morgan MD at [facility] INJECTION CAUDAL EPIDURAL WITH CATHETER, STEROID N/A 11/24/2019 Performed by Arnulfo Morgan MD at [facility] INJECTION CAUDAL EPIDURAL WITH CATHETER, STEROID N/A 04/21/2019 Performed by Arnulfo Morgan MD at [facility] NERVE BLOCK Bilateral L 4/5, 5/1 Bilateral 08/18/2019 Performed by Arnulfo Morgan MD at [facility] INJECTION MEDIAL BRANCH NERVE BLOCK Bilateral L 4/5, 5/1 Bilateral 06/23/2019 Performed by Arnulfo Morgan MD at [facility] INJECTION STEROID EPI 1 WITH SEDATION Right L 4, 5 NR Right 03/17/2019 Performed by Arnulfo Morgan MD at [facility] INJECTION STEROID EPI 1 WITH SEDATION: right L45 nroot Right 08/15/2018 Performed by Arnulfo Morgan MD at [facility] LEFT L4, AND 5 NERVE ROOT INJECTION 2 OF 2 Left 07/22/2018 Performed by Arnulfo Morgan MD at [facility] LEFT L4, AND L5 NERVE ROOT 1 OF 2 Left 07/04/2018 Performed by Arnulfo Morgan MD at [facility] SHUNT INSERTION TONSILLECTOMY AGE 4 Transcutaneous aortic valve replacement/Transfemoral/Kwan N/A 08/17/2023 Performed by Chava Norris MD at [facility] Valvuloplasty aortic N/A 06/03/2023 Performed by Chava Norris MD at [facility] 6 Clicks: Basic [...] socks, gait belt Weight Bearing Status: FWB Telemetry/Childhood Development Teacher: Yes Oxygen Used: Room air Other: Fall [...] UE support, and no LOB, to demo increasedind w/ standing ADLs. Disciplines: PT Problem: Transfers Dates: Start: 07/03/25 Disciplines: PT Goal: Patient will perform transfers with Supervision Dates: Start: 07/03/25 Expected End: 07/12/25 Description: Goal Description: including bed mobility (HOB may be elevated, use of rail), to reducefall risk w/ toileting/self-care tasks. Disciplines: PT Physical Therapy Care Plan (Resolved) There are no resolved problems. Principal Problem: Intractable nausea and vomiting Active Problems: 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 mellitus ([facility]) Chronic diastolic congestive heart failure ([facility]) Weakness Iron deficiency anemia [employer] [id number] Progress note* Discharge Planning Note - Bethany Lucero RN - 07/03/2025 10:52 AM EDT 07/03/25 1048 Patient Information Initial Pre-Hospitalization Assessment Completed? Completed [...] we didn't have money to get more.Never True Hunger Screening Complete? Yes Pt. Eligible for Food / Voucher No If Eligible: Received Food Box Not Offered to Patient Warm Handoff Complete Caregiver/Family Member Caregiver/Family Member Involved with Current Plan of Care No Caregiver/Family Member in Agreement with Current Plan of Care No Caregiver/Support System Limitations Caregiver/Support Systems Limitations (Check All That Apply) No Caregiver Needed Patient/Caregiver Goals Patient/Caregiver Goals [facility] Skilled [facility] Skilled Care (Short Term) Services Requested Patient expects to be discharged to: SNF Does the patient wish to have family/friend/caregiver involved in their discharge planning? No, thepatient does not wish to have family/friend/caregiver involved in their discharge planning Discharge Disposition SNF SNF Name [facility] (SNF) [phone] Fax SNF Accepted? (referral sent) Does the patient need discharge transportation arranged? Yes Transportation Arranged Ambulance DC Planning Complete Discharge Milestones Yes DISCHARGE PLANNING NOTE CN met with patient at bedside. CN discussed therapy recommendations and recent hospital admission.Patient agreeable for SNF referral be sent to [facility] only. If [facility] unable to accept, patient would like to return home with [facility]. Patient is current with [facility]. Referral sent to [facility] and [facility]. Discharge plan: [facility] SNF vs Home with [facility] (resume services) [facility] declined due to bed availability. Patient gave [facility] as 2nd choice, reviewing/pending bed availability. Daughter at bedside, 2 more choices given. Referrals sent to [facility] and [facility]. - Bethany Lucero RN 07/03/25 1:47 PM N(i)[id number] Plan of care note* Plan of Care - Cesilia Hand RN - 07/03/2025 7:56 AM EDT Problem: Pain Goal: Patient goal is pain score less than 4, able to rest, and participant in treatment plan as appropriate Description: INTERVENTIONS: 1. Encourage patient or legal patient relations representative to report early pain and ask [...] per policy 9. Teach patient or legal patient relations representative interventions for comforting Note: Evaluation of [...] at the bedside 7. Instruct patient/ patient patient relations representative about use of safety devices 8. Include patient/ patient patient relations representative in decisions related to safety Note: [...] hygiene technique. 7. Identify and instruct patient/patient patient relations representative in use of appropriate isolation precautionsfor identified infection/symptoms. 8. Provide and discuss with patient/patient patient relations representative on educational MDRO sheet. 9. Encourage and monitor nutritional status daily and consult form setter metal road forms if indicated. 10. Implement neutropenic guidelines as needed. Note: Evaluation of progress towards goal: Standard precautions in place. Problem: Knowledge Deficit Goal: Patient/patient patient relations representative demonstrates understanding of disease process, treatment plan,medications, and discharge instructions Description: INTERVENTIONS 1. Complete [...] anxiety both physical and emotional (heart palpitations, chestpain, shortness of breath, headaches, nausea, feeling jumpy, [...] Collaborate with ancillary departments 14. Include patient/patient patient relations representative in decisions related to anxiety Note: [...] care 6. Collaborate with pastoral/spiritual care, social sciences research scientist, mental health counselor as needed. 7. Instruct patient on diversional activities such as physical activity, distraction, and deep breathing exercises to assist with coping 8. Involve patient's patient relations representative in care Note: Evaluation of progress [...] educator as appropriate 6. Communicate referral to form setter metal road forms as appropriate 7. Collaborate with case management/social sciences research scientist for discharge needs Note: Evaluation of progress [...] supplement as ordered 13. Collaborate with clinical form setter metal road forms 14. Include patient/ patient's patient relations representative in decisions related to nutrition Note: [...] Note: Evaluation of progress towards goal: monitor [facility] History and physical note* Felix Hallman MD - 07/03/2025 7:16 AM EDT Images from the original note were not included. [facility] [address] [place] [phone] Hospital Medicine History & Physical Patient: Cuca Dee Date of : 1945 Room: [facility] PCP: KAIDEN Hopkins Admission date: 07/02/2025 5:45 PM Encounter date: 07/03/25 Hospital Day: 2 SUBJECTIVE Cuca Dee is a 80 y.o. female who presents with complaints of vomiting for 6 days generalizedweakness. Patient was discharged from another local hospital on June 27 where she was thereforeEnterococcus UTI. Patient was also hypercalcemic with known [...] be said with certainty whether it is flowwithin the ovarian tissue. EKG sinus rhythm left [...] by mouth in the morning. 02/25/25 KAIDEN Rose ferrous sulfate 325 (65 FE) MG tablet [...] total) by mouth in the morning. 01/28/25 YesNot In System Ref Prov traZODone (DESYREL) 100 [...] Asthma, Cataract, Dental disease, Depression, Diabetes mellitus [place] Diabetes mellitus type 2, controlled ([facility]), Encephalitis, Foot fracture, left, GERD (gastroesophageal reflux disease), Heart murmur, HLD (hyperlipidemia), Hypertens ion, Incontinence, Injury of back, Insulin dependent diabetes mellitus, Kidney failure, Lumbar spondylolysis, Murmur, Obesity, CHELSEA (obstructive sleep apnea), Peptic ulceration, Peripheral vascular disease, Shortness of breath, Stroke ([facility]) (02/27/2024), TIA (transient ischemic attack), Upper respiratory [...] 165.1 cm (5' 5 ) Wt 78.5 kg(173 lb) LMP (LMP Unknown) SpO2 98% BMI [...] She is ill-appearing (chronic). She is not toxic- appearing or diaphoretic. HENT: Head: Normocephalic and atraumatic. [...] CLINICAL INFORMATION: Evaluate for Ovarian Torsion. TECHNIQUE: Real- time transabdominal sonographic evaluation of the pelvis was performed with villarreal scale and color flow imaging. The patient could not tolerate transvaginal imaging which severely compromises sensitivity the examination. Real time villarreal scale, color flow imaging and duplex spectral Doppler waveform analysis evaluation wasperformed of the major arterial inflow and venous [...] represent the abnormality described previous CT examination. Thereis blood flow along the periphery of this lesion, however, it cannot be said with certainty whetherthe flow is in the ovarian tissue. The [...] this is ovarian in nature. Blood flow isdocumented along the periphery of this lesion, however, [...] the skull base and in the calvarium showno definite abnormality. Note is made of a right-sided ventriculostomy with a right frontal approach that demonstrates no acute complication. Tip of this is located in the region of the right foramenof Monro. The orbits are lens replacements.. The paranasal sinuses are clear. The mastoid air cellsare clear. IMPRESSION: Ventriculomegaly is stable with a right- sided frontal approach ventriculostomy appearing stable. No acute [...] adenopathy Peritoneum:No free air or free fluid Retrope ritoneum:No adenopathy Vessels: Atherosclerotic changes in the aorta no aneurysm Abdominal wall:NON DESTRUCTIVE TESTER shunt tube Bones:Severe changes in the right hip possible prior intertrochanteric fracture which hasnot undergone fixation. IMPRESSION: * Large left adnexal cyst increased in size since previous examination pelvic ultrasound is recommended for further evaluation. * Severe changes in the right hip possible prior intertrochanteric fracture which has not undergone fixation. * Small to moderate-sizedhiatal hernia stomach All CT scans at this [...] * Foci of air within the endometrial cavity,nonspecific. Correlate for recent endometrial biopsy/procedure. Differential consideration [...] Discharge: Anticipated tomorrow when we get placement [facility] first choice KAIDEN Magana 07/03/2025 [...] mass patient is to follow up with nurse gynecology Oncology as outpatient [facility] History and physical note* Felix Hallman MD - 07/03/2025 7:16 AM EDT Images from the original note were not included. [facility] [place] [id number] MED SURG [address] [place] [phone] Hospital Medicine History & Physical Patient: Cuca Dee Date of : 1945 Room: [facility] PCP: KAIDEN Hopkins Admission date: 07/02/2025 5:45 PM Encounter date: 07/03/25 Hospital Day: 2 SUBJECTIVE Cuca Dee is a 80 y.o. female who presents with complaints of vomiting for 6 days generalizedweakness. Patient was discharged from another local hospital on June 27 where she was thereforeEnterococcus UTI. Patient was also hypercalcemic with known [...] be said with certainty whether it is flowwithin the ovarian tissue. EKG sinus rhythm left [...] by mouth in the morning. 02/25/25 KAIDEN oRse ferrous sulfate 325 (65 FE) MG tablet [...] total) by mouth in the morning. 01/28/25 YesNot In System Ref Prov traZODone (DESYREL) 100 mg tablet TAKE 1 TABLET BY MOUTH EVERY DAY AT NIGHT Patient taking differently: Take 1 tablet (100 mg total) by mouth nightly. TAKE 1 TABLET BY MOUTH EVERY DAY AT NIGHT 11/28/24 Yes KADIEN Werner lidocaine (SALONPAS) 4 % Place 1 patch on the skin daily. 05/29/25 Giovanny Penny DO Past Medical History: Patient has a past medical history of Anemia, Arthritis, Asthma, Cataract, Dental disease, Depression, Diabetes mellitus [place] Diabetes mellitus type 2, controlled ([facility]), Encephalitis, Foot fracture, left, GERD (gastroesophageal reflux disease), Heart murmur, HLD (hyperlipidemia), Hypertens ion, Incontinence, Injury of back, Insulin dependent diabetes mellitus, Kidney failure, Lumbar spondylolysis, Murmur, Obesity, CHELSEA (obstructive sleep apnea), Peptic ulceration, Peripheral vascular disease, Shortness of breath, Stroke ([facility]) (02/27/2024), TIA (transient ischemic attack), Upper respiratory [...] 165.1 cm (5' 5 ) Wt 78.5 kg(173 lb) LMP (LMP Unknown) SpO2 98% BMI [...] She is ill-appearing (chronic). She is not toxic- appearing or diaphoretic. HENT: Head: Normocephalic and atraumatic. [...] CLINICAL INFORMATION: Evaluate for Ovarian Torsion. TECHNIQUE: Real- time transabdominal sonographic evaluation of the pelvis was performed with villarreal scale and color flow imaging. The patient could not tolerate transvaginal imaging which severely compromises sensitivity the examination. Real time villarreal scale, color flow imaging and duplex spectral Doppler waveform analysis evaluation wasperformed of the major arterial inflow and venous [...] represent the abnormality described previous CT examination. Thereis blood flow along the periphery of this lesion, however, it cannot be said with certainty whetherthe flow is in the ovarian tissue. The [...] this is ovarian in nature. Blood flow isdocumented along the periphery of this lesion, however, [...] the skull base and in the calvarium showno definite abnormality. Note is made of a right-sided ventriculostomy with a right frontal approach that demonstrates no acute complication. Tip of this is located in the region of the right foramenof Monro. The orbits are lens replacements.. The paranasal sinuses are clear. The mastoid air cellsare clear. IMPRESSION: Ventriculomegaly is stable with a right- sided frontal approach ventriculostomy appearing stable. No acute [...] adenopathy Peritoneum:No free air or free fluid Retrope ritoneum:No adenopathy Vessels: Atherosclerotic changes in the aorta no aneurysm Abdominal wall:NON DESTRUCTIVE TESTER shunt tube Bones:Severe changes in the right hip possible prior intertrochanteric fracture which hasnot undergone fixation. IMPRESSION: * Large left adnexal cyst increased in size since previous examination pelvic ultrasound is recommended for further evaluation. * Severe changes in the right hip possible prior intertrochanteric fracture which has not undergone fixation. * Small to moderate-sizedhiatal hernia stomach All CT scans at this [...] * Foci of air within the endometrial cavity,nonspecific. Correlate for recent endometrial biopsy/procedure. Differential consideration [...] 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 mellitus ([facility]) Chronic diastolic congestive heart failure ([facility]) Weakness Iron deficiency anemia Adnexal mass ASSESSMENT [...] Discharge: Anticipated tomorrow when we get placement [facility] first choice KAIDEN Magana 07/03/2025 4:55 PM [facility] Internal Medicine 7AM-7PM & 7PM-7AM: EpicChat [...] mass patient is to follow up with nurse gynecology Oncology as outpatient [facility] Plan of care note * Plan of Care - Kristy Galarza RN - 07/02/2025 10:16 PM EDT Problem: Pain Goal: Patient goal is pain score less than 4, able to rest, and participant in treatment plan as appropriate Description: INTERVENTIONS: 1. Encourage patient or legal patient relations representative to report early pain and ask [...] per policy 9. Teach patient or legal patient relations representative interventions for comforting Outcome: Progressing Note: [...] at the bedside 7. Instruct patient/ patient patient relations representative about use of safety devices 8. Include patient/ patient patient relations representative in decisions related to safety Outcome: [...] hygiene technique. 7. Identify and instruct patient/patient patient relations representative in use of appropriate isolation precautionsfor identified infection/symptoms. 8. Provide and discuss with patient/patient patient relations representative on educational MDRO sheet. 9. Encourage and monitor nutritional status daily and consult form setter metal road forms if indicated. 10. Implement neutropenic guidelines as needed. Outcome: Progressing Note: Evaluation of progress towards goal: Patient VS WNL, remains afebrile for shift. Continue to monitor. Problem: Knowledge Deficit Goal: Patient/patient patient relations representative demonstrates understanding of disease process, treatment plan,medications, and discharge instructions Description: INTERVENTIONS 1. Complete [...] anxiety both physical and emotional (heart palpitations, chestpain, shortness of breath, headaches, nausea, feeling jumpy, [...] Collaborate with ancillary departments 14. Include patient/patient patient relations representative in decisions related to anxiety Outcome: [...] care 6. Collaborate with pastoral/spiritual care, social sciences research scientist, mental health counselor as needed. 7. Instruct patient on diversional activities such as physical activity, distraction, and deep breathing exercises to assist with coping 8. Involve patient's patient relations representative in care Outcome: Progressing Note: Evaluation [...] educator as appropriate 6. Communicate referral to form setter metal road forms as appropriate 7. Collaborate with case management/social sciences research scientist for discharge needs Outcome: Progressing Note: Evaluation [...] supplement as ordered 13. Collaborate with clinical form setter metal road forms 14. Include patient/ patient's patient relations representative in decisions related to nutrition Outcome: [...] skin protectant applied as needed, labs monitored. [facility] Sova [id number] Telephone encounter Note* Telephone Encounter - RONNA Barber - 06/24/2025 [...] a 1-1 assist to pr event falls. [facility] Work Phone: [phone] [phone] Miscellaneous Notes* Telephone Encounter - RONNA Barber - 06/24/2025 [...] pr event falls. * Telephone Encounter - Joelleher Lopez - 06/21/2025 10:58 AM EDT Cuca Tejeda's daughter called, she wants to know if they can have outpatient therapy here in [place] at [facility] advise documented in this encounterJohn J. Pershing [facility] [id number] Telephone encounter Note* Telephone Encounter - Joelle Lopez - 06/21/2025 10:58 AM EDT Cuca Tejeda's daughter called, she wants to know if they can have outpatient therapy here in [place] at [facility] advise [facility] [id number] Telephone encounter Note* Telephone Encounter - Joelle Lopez - 06/18/2025 11:15 AM EDT Cuca Tejeda's daughter called and said that Cuca is taking OTC Tylenol but its not helping, wanted to know if we can call in something stronger for her. Please advise [facility] [id number] Miscellaneous Notes* Telephone Encounter - Joelle Lopez - 06/18/2025 11:15 AM EDT Cuca Tejeda's daughter called and said that Cuca is taking OTC Tylenol but its not helping, wanted to know if we can call in something stronger for her. Please advise documented in this encounterJohn J. Pershing [facility] Medical [id number] History of Present illness Narrative* RONNA Barber - 06/06/2025 1:30 PM EDT Images from the original note were not included. Orthopedic Office note: NAME: Cuca Dee : 1945 NEW PT WITH RT HIP PAIN - NO KNOWN INJURY -PT WENT TO [facility] 3DAYS IN A ROW 05/11, 05/12, 05/13;XRAY LUMBAR/CT LUMBAR/CT HIP XRAY PELVIS TODAY 06/06/25 [...] in right hip discomfort. Bilateral trochanteric hip bursas:No pain with gentle palpation. Skin: Warm and dry, no rash. Neurological: Symmetric sensation on palpation without evidence of nerve palsy. Patient reports no current paresthesias. Orders Placed This Encounter Procedures XR pelvis 1 or 2 views Reason for exam:: PAIN Procedures Results - Imaging: - Hip x-ray with pelvis (05/30/2025): Stable displaced fracture of the lesser trochanter, unchangedfrom previous CT examination (05/13/2025) - X-rays: Similar [...] showing stability of the avulsion fracture at thelesser trochanter, unchanged from the previous CT examination on 05/13/2025. The pathology of this injury was explained, likely avulsion in nature, as she does not recall a fall or trauma. Osteopeniaand a prior pelvic fracture were noted. Her [...] walker at all times if ambulating with a1-1 assist to prevent falls. Both the patient and her daughter at bedside agreed and had no furtherconcerns or questions. Follow-up: The patient will follow [...] requiring urgent evaluation. Visit was preformed using [employer]-master pilot speech recognition. documented in this encounterJohn J. Pershing VA Medical [id number] History of Present illness Narrative* Vjhope Gray, BRUSH WORKER-SEWER CONNECTOR - 06/05/2025 1:00 PM EDT IM PROGRESS NOTE Patient - Cuca Dee Age - 79 y[facility] 1945 [id number] & PLAN 1. Hospital discharge follow-up [...] social history, past surgicalhistory and problem list. Out of halfway 9 days ago. Patient was found to [...] mg total) by mouth every 6 (six) hoursas needed for pain., Disp: , Rfl: cyanocobalamin 1000 MCG tablet, Take 1 tablet (1,000 mcg total) by mouth in the morning., Disp: , Rfl: ferrous sulfate 325 (65 FE) MG tablet, Take 1 tablet (325 mg total) by mouth daily with breakfast.,Disp: , Rfl: furosemide (LASIX) 20 mg tablet, [...] Units under the skin 4 (four) times aday with meals and nightly. 151-200 mg/dL, give [...] 05/12/2025 Auto Resulted Final POC Urine Specific [place] 05/12/2025 1.015 1.010, 1.015, 1.020, 1.025 Final [...] performed Number of views:1 History:Shortness of breath Comparison:04/28/2025Findings: The heart and lungs show no acute [...] 09/05/2025) for DM. EN Diaz [facility] Physicians Office: [phone] This note is dictated with the use of M*Modal. Please note that this dictation was completed with computer voice recognition software. Quite often unanticipated grammatical, syntax, homophones, and other interpretive errors are inadvertently transcribed by the computer software. Please disregard these errors. Please excuse any errors that have escaped final proofreading. KAIDEN Hopkins 06/05/25 1358 documented in this encounterCommunity [facility] Center07-08-2025 NoteSUBJECTIVE: Chief complaint: NPH with NON DESTRUCTIVE TESTER shunt. History of present illness: Follow-up for normal pressure hydrocephalus. She was recently hospitalized with hypoxia and altered mental status. Found to have pneumonia as well as a right hip fracture. Fracture did not require surgical intervention. Notes that this spring, she had MRSA bacteremia. [facility] Denies headaches, numbness, tingling, vision [...] Diagnosis Date Aortic stenosis Asthma Atrial fibrillation ([facility]/HCC) Cancer ([facility]) 02/2023 right breast, metastatic Cataract CKD (chronic kidney disease) Coronary artery disease Depression Diabetes mellitus ([facility]/HCC) Dyslipidemia Femur fracture, right ([facility]) 04/2025 GERD (gastroesophageal reflux disease) Heart failure ([facility]/HCC) Hypertension Ischemic stroke ([facility]) 02/2024 seen at [facility] NPH (normal pressure hydrocephalus) ([facility]) PVD (peripheral vascular disease) Sleep apnea Past [...] Diabetes Mother Kacey Dee Hypertension Father Radha Huntbatsheva Coronary artery disease Father Radha Dee OBJECTIVE: Medications: acetaminophen amLODIPine amoxicillin aspirin atorvastatin cefuroxime cholecalciferol (vitamin D3) clopidogrel Dexcom G6 [employer] Sales Representative [facility] Dexcom G6 Transmitter device Dexcom G7 Sensor device doxycycline ferrous sulfate FreeStyle Kartik 14 Day [facility] FreeStyle Kartik 14 Day Sensor kit furosemide gabapentin hydroCHLOROthiazide insulin aspart insulin lispro lancets [facility] Lantus Solostar U-100 Insulin insulin pen letrozole Levemir FlexPen insulin pen lisinopril magnesium oxide melatonin capsule metoprolol tartrate mirtazapine miscellaneous medical supply [facility] mupirocin nystatin ONETOUCH ULTRA BLUE TEST STRIP [facility] OneTouch Ultra Test strip oxyBUTYnin pantoprazole pen [...] tablet, TAKE 4 (more content not included)... [facility]07-01-2025 Plan of care note* Plan of Care - Beatrice. Ileana Douglas RN - 05/15/2025 3:12 PM EDT Problem: Pain Goal: Patient goal is pain score less than 4, able to rest, and participant in treatment plan as appropriate Description: INTERVENTIONS: 1. Encourage patient or legal patient relations representative to report early pain and ask [...] per policy 9. Teach patient or legal patient relations representative interventions for comforting 05/15/2025 1511 by [...] at the bedside 7. Instruct patient/ patient patient relations representative about use of safety devices 8. Include patient/ patient patient relations representative in decisions related to safety 05/15/2025 1511 by S., RN Outcome: Adequate for Discharge 05/15/2025 1349 [...] hygiene technique. 7. Identify and instruct patient/patient patient relations representative in use of appropriate isolation precautionsfor identified infection/symptoms. 8. Provide and discuss with patient/patient patient relations representative on educational MDRO sheet. 9. Encourage and monitor nutritional status daily and consult form setter metal road forms if indicated. 10. Implement neutropenic guidelines as needed. 05/15/2025 1511 by GABBY Camarena Outcome: Adequate for Discharge 05/15/2025 1349 by GABBY Camarena Outcome: Progressing Note: Evaluation of progress towards goal: Pt afebrile at this time, continue to monitor for signs infection Problem: Knowledge Deficit Goal: Patient/patient patient relations representative demonstrates understanding of disease process, treatment plan,medications, and discharge instructions Description: INTERVENTIONS 1. Complete learning assessment and assess knowledge base 2. Provide teaching at level of understanding 3. Provide teaching via preferred learning method(s) 05/15/2025 1511 by GABBY Camarena Outcome: Adequate for Discharge 05/15/2025 1349 by GABBY Camarena Outcome: Progressing Note: Evaluation of progress towards goal: Evaluate, educate, reinforce learning needs and gaps t/oshift. Problem: Discharge Planning Goal: Discharge to post-acute [...] discharge transportation as appropriate 05/15/2025 151 by iMgue RN Outcome: Adequate for Discharge [...] Handoff to next level of care provider (care director rn, PCP, home care). 5. Complete follow up phone call within 72 hours. 05/15/2025 151 by Migue RN Outcome: Adequate [...] to maintain a patent airway and breath soundsare clear. Continue to monitor. Problem: Inadequate Breathing [...] to maintain a patent airway and breath soundsare clear. Continue to monitor. Goal: Patient will [...] to maintain a patent airway and breath soundsare clear. Continue to monitor. Problem: Anxiety Goal: Anxiety is at manageable level Description: Patient's goal is: INTERVENTIONS 1. Assess and monitor patient's anxiety level 2. Monitor for signs and symptoms of anxiety both physical and emotional (heart palpitations, chestpain, shortness of breath, headaches, nausea, feeling jumpy, [...] Collaborate with ancillary departments 14. Include patient/patient patient relations representative in decisions related to anxiety 05/15/2025 1511 by Migue RN Outcome: Adequate for Discharge 05/15/2025 1349 by Migue RN Outcome: Progressing Note: Evaluation of progress towards goal: Education and reassurance provided as needed to maintaina decreased level of fear/anxiety as needed. Problem: [...] care 6. Collaborate with pastoral/spiritual care, social sciences research scientist, mental health counselor as needed. 7. Instruct patient on diversional activities such as physical activity, distraction, and deep breathing exercises to assist with coping 8. Involve patient's patient relations representative in care 05/15/2025 1511 by Migue [...] be free from fall Description: Interventions: 1. Picacho to environment 2. Hourly rounds addressing the [...] non-skid footwear 11. Teach patient and patient patient relations representative to maintain environment for safety and [...] (cane, walker) within reach 19. Request patient patient relations representative bring adaptive equipment/mobility aids from home or obtain and provide as needed 20. Consult pharmacy regarding effects of med's affecting mobility, cognition, and alternatives 21. Obtain physician order for PT if risk factors associated with mobility are present 22. Obtain physician order for OT as appropriate 23. Utilize diversional activities 24. Educate patient and patient patient relations representative how to maintain a safe environment during visitationtimes (notify nurse prior to leaving bedside) 25. Consider appropriateness of medical or non-emergency medical technician/driver 26. Set up voiding schedule as appropriate [...] supplement as ordered 13. Collaborate with clinical form setter metal road forms 14. Include patient/ patient's patient relations representative in decisions related to nutrition 05/15/2025 [...] to participate in self care with no limitations.Continue to monitor. Problem: Cardiovascular - Adult Goal: [...] to ensure perfusion and oxygenation and ventilation [facility]07-01-[facility]25 Miscellaneous Notes* Plan of Care - Migue Douglas RN - 05/15/2025 3:12 PM EDT Problem: Pain Goal: Patient goal is pain score less than 4, able to rest, and participant in treatment plan as appropriate Description: INTERVENTIONS: 1. Encourage patient or legal patient relations representative to report early pain and ask [...] per policy 9. Teach patient or legal patient relations representative interventions for comforting 05/15/2025 1511 by [...] at the bedside 7. Instruct patient/ patient patient relations representative about use of safety devices 8. Include patient/ patient patient relations representative in decisions related to safety 05/15/2025 [...] hygiene technique. 7. Identify and instruct patient/patient patient relations representative in use of appropriate isolation precautionsfor identified infection/symptoms. 8. Provide and discuss with patient/patient patient relations representative on educational MDRO sheet. 9. Encourage and monitor nutritional status daily and consult form setter metal road forms if indicated. 10. Implement neutropenic guidelines as needed. 05/15/2025 1511 by GABBY Camarena Outcome: Adequate for Discharge 05/15/2025 1349 by GABBY Camarena Outcome: Progressing Note: Evaluation of progress towards goal: Pt afebrile at this time, continue to monitor for signs infection Problem: Knowledge Deficit Goal: Patient/patient patient relations representative demonstrates understanding of disease process, treatment plan,medications, and discharge instructions Description: INTERVENTIONS 1. Complete learning assessment and assess knowledge base 2. Provide teaching at level of understanding 3. Provide teaching via preferred learning method(s) 05/15/2025 1511 by GABBY Camarena Outcome: Adequate for Discharge 05/15/2025 1349 by GABBY Camarena Outcome: Progressing Note: Evaluation of progress towards goal: Evaluate, educate, reinforce learning needs and gaps t/oshift. Problem: Discharge Planning Goal: Discharge to post-acute [...] Handoff to next level of care provider (care director rn, PCP, home care). 5. Complete follow up [...] encourage incentive spirometer if indicated 05/15/20251510 by Migue RN Outcome: Adequate for Discharge 05/15/20251348 by Migue RN Outcome: Progressing Note: Evaluation of progress towards goal: Pt is able to maintain a patent airway and breath soundsare clear. Continue to monitor. Problem: Inadequate Breathing [...] to maintain a patent airway and breath soundsare clear. Continue to monitor. Goal: Patient will [...] to maintain a patent airway and breath soundsare clear. Continue to monitor. Problem: Anxiety Goal: Anxiety is at manageable level Description: Patient's goal is: INTERVENTIONS 1. Assess and monitor patient's anxiety level 2. Monitor for signs and symptoms of anxiety both physical and emotional (heart palpitations, chestpain, shortness of breath, headaches, nausea, feeling jumpy, [...] Collaborate with ancillary departments 14. Include patient/patient patient relations representative in decisions related to anxiety 05/15/2025 1511 by Migue RN Outcome: Adequate for Discharge 05/15/2025 1349 by Migue RN Outcome: Progressing Note: Evaluation of progress towards goal: Education and reassurance provided as needed to maintaina decreased level of fear/anxiety as needed. Problem: [...] care 6. Collaborate with pastoral/spiritual care, social sciences research scientist, mental health counselor as needed. 7. Instruct patient on diversional activities such as physical activity, distraction, and deep breathing exercises to assist with coping 8. Involve patient's patient relations representative in care 05/15/2025 1511 by GABBY [...] be free from fall Description: Interventions: 1. Picacho to environment 2. Hourly rounds addressing the [...] non-skid footwear 11. Teach patient and patient patient relations representative to maintain environment for safety and [...] (cane, walker) within reach 19. Request patient patient relations representative bring adaptive equipment/mobility aids from home or obtain and provide as needed 20. Consult pharmacy regarding effects of med's affecting mobility, cognition, and alternatives 21. Obtain physician order for PT if risk factors associated with mobility are present 22. Obtain physician order for OT as appropriate 23. Utilize diversional activities 24. Educate patient and patient patient relations representative how to maintain a safe environment during visitationtimes (notify nurse prior to leaving bedside) 25. Consider appropriateness of medical or non-emergency medical technician/driver 26. Set up voiding schedule as appropriate [...] supplement as ordered 13. Collaborate with clinical form setter metal road forms 14. Include patient/ patient's patient relations representative in decisions related to nutrition 05/15/2025 [...] to participate in self care with no limitations.Continue to monitor. Problem: Cardiovascular - Adult Goal: [...] and administer replacement/adjust therapy as ordered 05/15/2025 151 by GABBY Camarena Outcome: Adequate [...] to ensure perfusion and oxygenation and ventilation * Discharge Planning Note - Sheela Velásquez - 05/15/2025 1:59 PM EDT DISCHARGE PLANNING NOTE Prior Auth approved for admission to : [facility]/ [place], [place] (P# ; F# ) Approval # [id number] Valid for Dates: 05/15/2025 - 05/21/2025 * Plan of Care - Migue Douglas RN - 05/15/2025 1:54 PM EDT Problem: Pain Goal: Patient goal is pain score less than 4, able to rest, and participant in treatment plan as appropriate Description: INTERVENTIONS: 1. Encourage patient or legal patient relations representative to report early pain and ask [...] per policy 9. Teach patient or legal patient relations representative interventions for comforting Outcome: Progressing Note: [...] at the bedside 7. Instruct patient/ patient patient relations representative about use of safety devices 8. Include patient/ patient patient relations representative in decisions related to safety Outcome: [...] hygiene technique. 7. Identify and instruct patient/patient patient relations representative in use of appropriate isolation precautionsfor identified infection/symptoms. 8. Provide and discuss with patient/patient patient relations representative on educational MDRO sheet. 9. Encourage and monitor nutritional status daily and consult form setter metal road forms if indicated. 10. Implement neutropenic guidelines as needed. Outcome: Progressing Note: Evaluation of progress towards goal: Pt afebrile at this time, continue to monitor for signs infection Problem: Knowledge Deficit Goal: Patient/patient patient relations representative demonstrates understanding of disease process, treatment plan,medications, and discharge instructions Description: INTERVENTIONS 1. Complete learning assessment and assess knowledge base 2. Provide teaching at level of understanding 3. Provide teaching via preferred learning method(s) Outcome: Progressing Note: Evaluation of progress towards goal: Evaluate, educate, reinforce learning needs and gaps t/oshift. Problem: Discharge Planning Goal: Discharge to post-acute [...] Handoff to next level of care provider (care director rn, PCP, home care). 5. Complete follow up [...] to maintain a patent airway and breath soundsare clear. Continue to monitor. Problem: Inadequate Breathing [...] to maintain a patent airway and breath soundsare clear. Continue to monitor. Goal: Patient will [...] to maintain a patent airway and breath soundsare clear. Continue to monitor. Problem: Anxiety Goal: Anxiety is at manageable level Description: Patient's goal is: INTERVENTIONS 1. Assess and monitor patient's anxiety level 2. Monitor for signs and symptoms of anxiety both physical and emotional (heart palpitations, chestpain, shortness of breath, headaches, nausea, feeling jumpy, [...] Collaborate with ancillary departments 14. Include patient/patient patient relations representative in decisions related to anxiety Outcome: Progressing Note: Evaluation of progress towards goal: Education and reassurance provided as needed to maintaina decreased level of fear/anxiety as needed. Problem: [...] care 6. Collaborate with pastoral/spiritual care, social sciences research scientist, mental health counselor as needed. 7. Instruct patient on diversional activities such as physical activity, distraction, and deep breathing exercises to assist with coping 8. Involve patient's patient relations representative in care Outcome: Progressing Note: Evaluation of progress towards goal: Pt's on telemetry, strip read at beginning of shift and when changes occur and monitored throughout shift. Pt free of any dysrhythmias. VS and focused assessment done every 4 hours. Problem: Moderate - High Risk Fall Score Description: Patel Fall Score of =/> 25 or indicated by [facility] Assessment Goal: Patient should be free from fall Description: Interventions: 1. Picacho to environment 2. Hourly rounds addressing the [...] non-skid footwear 11. Teach patient and patient patient relations representative to maintain environment for safety and [...] (cane, walker) within reach 19. Request patient patient relations representative bring adaptive equipment/mobility aids from home or obtain and provide as needed 20. Consult pharmacy regarding effects of med's affecting mobility, cognition, and alternatives 21. Obtain physician order for PT if risk factors associated with mobility are present 22. Obtain physician order for OT as appropriate 23. Utilize diversional activities 24. Educate patient and patient patient relations representative how to maintain a safe environment during visitationtimes (notify nurse prior to leaving bedside) 25. Consider appropriateness of medical or non-emergency medical technician/driver 26. Set up voiding schedule as appropriate [...] supplement as ordered 13. Collaborate with clinical form setter metal road forms 14. Include patient/ patient's patient relations representative in decisions related to nutrition Outcome: [...] to participate in self care with no limitations.Continue to monitor. Problem: Cardiovascular - Adult Goal: [...] to ensure perfusion and oxygenation and ventilation * PT/OT/TRAFFIC SERGEANT - Maryanne Hernandez, PT - 05/15/2025 9:51 AM EDT Physical Therapy Evaluation Discharge Recommendations for Safe Patient Transition Discharge Recommendations: Post acute - moderate Post Acute Moderate Rehab Needs: Recommend moderate intensity rehab, Tolerate 1- 2 hrs of therapy 3-5 days/wk, Subacute or chronic functional impairment Current Impairments Informing Therapy Recommendation: Ambulation status/safety, Cognition, Fall risk, ADL status, Endurance level Wire Bender Support for-: Mobility Deficits, ADL Deficits, Cognitive [...] 6 Clicks: Basic Mobility Raw Score: 11 [facility] G Code Modifier: CL Therapy Plan Need [...] gait belt, IV/midline Weight Bearing Status: WBAT Telemetry/Childhood Development Teacher: Yes Oxygen Used: room air Other: fall risk Past Medical History: Diagnosis Date Anemia Arthritis Asthma very mild, no inhaler use Cataract Dental disease Depression Diabetes mellitus [place] Diabetes mellitus type 2, controlled ([facility] Encephalitis Foot fracture, left GERD (gastroesophageal reflux disease) Heart murmur HLD (hyperlipidemia) Hypertension Incontinence Injury of back Insulin dependent diabetes mellitus Kidney failure STAGE 4 Lumbar spondylolysis Murmur Obesity CHELSEA (obstructive sleep apnea) no machine Peptic ulceration Peripheral vascular disease Shortness of breath Stroke ([facility]) 02/27/2024 TIA (transient ischemic attack) Upper respiratory infection UTI (urinary tract infection) Visual impairment Wears dentures Past Surgical History: Procedure Laterality Date BREAST BIOPSY Right 03/01/2023 ULT BIOPSY CATARACT EXTRACTION SECTION SECTION 03/14/1974 EGD N/A 10/17/2019 Performed by Sarai Bell DO at [facility] H-PERCUTANEOUS CORONARY INTERVENTION HYSTEROSCOPY DILATION CURETTAGE MYOSURE N/A 01/29/2021 Performed by Jv Briones MD at [facility] INJECTION BLOCK EPIDURAL CAUDAL STEROID N/A 08/14/2022 Performed by Arnulfo Morgan MD at [facility] INJECTION BLOCK EPIDURAL CAUDAL STEROID N/A 06/06/2021 Performed by Arnulfo Morgan MD at [facility] INJECTION BLOCK EPIDURAL CAUDAL STEROID N/A 04/25/2021 Performed by Arnulfo Morgan MD at [facility] INJECTION CAUDAL EPIDURAL WITH CATHETER, STEROID N/A 05/03/2020 Performed by Arnulfo Morgan MD at [facility] INJECTION CAUDAL EPIDURAL WITH CATHETER, STEROID N/A 11/24/2019 Performed by Arnulfo Morgan MD at [facility] INJECTION CAUDAL EPIDURAL WITH CATHETER, STEROID N/A 04/21/2019 Performed by Arnulfo Morgan MD at [facility] NERVE BLOCK Bilateral L 4/5, 5/1 Bilateral 08/18/2019 Performed by Arnulfo Morgan MD at [facility] INJECTION MEDIAL BRANCH NERVE BLOCK Bilateral L 4/5, 5/1 Bilateral 06/23/2019 Performed by Arnulfo Morgan MD at [facility] INJECTION STEROID EPI 1 WITH SEDATION Right L 4, 5 NR Right 03/17/2019 Performed by Arnulfo Morgan MD at [facility] INJECTION STEROID EPI 1 WITH SEDATION: right L45 nroot Right 08/15/2018 Performed by Arnulfo Morgan MD at [facility] LEFT L4, AND 5 NERVE ROOT INJECTION 2 OF 2 Left 07/22/2018 Performed by Arnulfo Morgan MD at [facility] LEFT L4, AND L5 NERVE ROOT 1 OF 2 Left 07/04/2018 Performed by Arnulfo Morgan MD at [facility] SHUNT INSERTION TONSILLECTOMY AGE 4 Transcutaneous aortic valve replacement/Transfemoral/Kwan N/A 08/17/2023 Performed by Chava Norris MD at [facility] Valvuloplasty aortic N/A 06/03/2023 Performed by Chava Norris MD at [facility] Subjective Physical Therapy Comments: I think I'll be fine to go home, my daughter will help me. Pain Assessment Pain Assessment: No/denies pain (No pain at initiation of session. Increased pain with mobility butdoesn't rate on VAS. Pain resolves once re-positioned [...] bed (Daughter plans to get her a liftchair) Prior Function Lives With: Daughter (Grandson born a female, does not work, 18, has autism. Daughter doesn't work,on disability.) Receives Help From: Family Level of Mobility: Needs assistance with ADLs or functional transfers or gait (Reports needs assistto stand. Independent with dressing, limited sponge bathing. [...] call button and bedside table within reach. Deniesfurther needs. Transfers Sit to Stand: Max assist [...] for weight shifting, cues to sequence, assist tonegotiate walker.) Other: Begins session in bedside chair. [...] roll/reverse log roll technique to compensate for LEweakness and pain. Disciplines: PT Problem: Gait Dates: [...] Principal Problem: Acute respiratory failure with hypoxia ([facility]) Active Problems: 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 mellitus ([facility]) Mixed diabetic hyperlipidemia associated with type 2 diabetes mellitus ([facility]) Obstructive sleep apnea syndrome Essential (primary) hypertension Acute on chronic diastolic congestive heart failure ([facility]) Stage 3b chronic kidney disease [place] Type 2 diabetes mellitus with diabetic chronic kidney disease [place] Iron deficiency anemia Hypomagnesemia Closed fracture of right hip ([facility]) Nondisplaced fracture of lesser trochanter of right femur, initial encounter for closed fracture ([facility]) * PT/OT/TRAFFIC SERGEANT - DANDRE Vargas/Trice - 05/15/2025 9:05 AM EDT Occupational Therapy Evaluation Discharge Recommendations for Safe Patient Transition Discharge Recommendations: Post acute - moderate Post Acute Moderate Rehab Needs: Recommend moderate intensity rehab, Subacute or chronic functionalimpairment, Tolerate 1-2 hrs of therapy 3-5 days/wk Current Impairments Informing Therapy Recommendation: Ambulation status/safety, Cognition, Fall risk, ADL status, Endurance level Wire Bender Support for-: Mobility Deficits, ADL Deficits, Cognitive [...] 10/17/2019 Performed by Sarai Bell DO at [facility] H-PERCUTANEOUS CORONARY INTERVENTION HYSTEROSCOPY DILATION CURETTAGE MYOSURE N/A 01/29/2021 Performed by Jv Briones MD at [facility] INJECTION BLOCK EPIDURAL CAUDAL STEROID N/A 08/14/2022 Performed by Arnulfo Morgan MD at [facility] BLOCK EPIDURAL CAUDAL STEROID N/A 06/06/2021 Performed by Arnulfo Morgan MD at [facility] INJECTION BLOCK EPIDURAL CAUDAL STEROID N/A 04/25/2021 Performed by Arnulfo Morgan MD at [facility] CAUDAL EPIDURAL WITH CATHETER, STEROID N/A 05/03/2020 Performed by Arnulfo Morgan MD at [facility] INJECTION CAUDAL EPIDURAL WITH CATHETER, STEROID N/A 11/24/2019 Performed by Arnulfo Morgan MD at [facility] INJECTION CAUDAL EPIDURAL WITH CATHETER, STEROID N/A 04/21/2019 Performed by Arnulfo Morgan MD at [facility] MEDIAL BRANCH NERVE BLOCK Bilateral L 4/5, 5/1 Bilateral 08/18/2019 Performed by Arnulfo Morgan MD at [facility] MEDIAL BRANCH NERVE BLOCK Bilateral L 4/5, 5/1 Bilateral 06/23/2019 Performed by Arnulfo Morgan MD at [facility] INJECTION STEROID EPI 1 WITH SEDATION Right L 4, 5 NR Right 03/17/2019 Performed by Arnulfo Morgan MD at [facility] STEROID EPI 1 WITH SEDATION: right L45 nroot Right 08/15/2018 Performed by Arnulfo Morgan MD at [facility] LEFT L4, AND 5 NERVE ROOT INJECTION 2 OF 2 Left 07/22/2018 Performed by Arnulfo Morgan MD at [facility] LEFT L4, AND L5 NERVE ROOT 1 OF 2 Left 07/04/2018 Performed by Arnulfo Morgan MD at [facility] SHUNT INSERTION TONSILLECTOMY AGE 4 Transcutaneous aortic valve replacement/Transfemoral/Kwan N/A 08/17/2023 Performed by Chava Norris MD at [facility] Valvuloplasty aortic N/A 06/03/2023 Performed by Chava Norris MD at [facility] Past Medical History: Diagnosis Date Anemia Arthritis Asthma very mild, no inhaler use Cataract Dental disease Depression Diabetes mellitus [place] Diabetes mellitus type 2, controlled [place] Encephalitis Foot fracture, left GERD (gastroesophageal reflux disease) Heart murmur HLD (hyperlipidemia) Hypertension Incontinence Injury of back Insulin dependent diabetes mellitus Kidney failure STAGE 4 Lumbar spondylolysis Murmur Obesity CHELSEA (obstructive sleep apnea) no machine Peptic ulceration Peripheral vascular disease Shortness of breath Stroke ([facility]) 02/27/2024 TIA (transient ischemic attack) Upper respiratory [...] gait belt, IV/midline Weight Bearing Status: WBAT Telemetry/Childhood Development Teacher: Yes Oxygen Used: room air Other: fall [...] in the community- [facility] Homemaking Assistance: Needs assistance (daugther and grandson [...] Deficit: R sock (due to pain) Other: teletypewriter operator introduced slef role and goals, teletypewriter operator familaiar with patient. patient agreeable to eval. completes sponge bath while seated on edge of bed, changes gown once seated in chair. brekfast tray arrives and session terminated Home Management - IADL Other: teletypewriter operator introduced slef role and goals, teletypewriter operator zulma with patient. patient agreeable to eval. completes sponge bath while seated on edge of bed, changes gown once seated in chair. angkfast tray arrives and session terminated Hearing / [...] , head of bed elevated and use ofbed rail) Other: remains in chair at end [...] Principal Problem: Acute respiratory failure with hypoxia ([facility]) Active Problems: 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 mellitus [place] Mixed diabetic hyperlipidemia associated with type 2 diabetes mellitus [place]) Obstructive sleep apnea syndrome Essential (primary) hypertension Acute on chronic diastolic congestive heart failure ([facility] Stage 3b chronic kidney disease [place]) Type 2 diabetes mellitus with diabetic chronic kidney disease [place]) Iron deficiency anemia Hypomagnesemia Closed fracture of right hip ([facility] Nondisplaced fracture of lesser trochanter of right femur, initial encounter for closed fracture ([facility]) * Discharge Planning Note - Purvi Cardenas RN - 05/15/2025 8:35 AM EDT DISCHARGE PLANNING NOTE [facility] PT/OT reminded via secure chat that we need PT/OT notes to submit for [facility] insurance authorization. Patient Discharge Plan: [facility] at [facility] (accepted) and pending insurance authorization. Can't submit until we have PT/OT evaluation and recommendation. Patient is WBAT. Plan of Care: [facility] (SNF) [phone] Fax CRF at Discharge Follow up appointments: Orthopedics would like to see patient in two weeks. This was added to AVS for SNF to schedule for patient. - Purvi Cardenas RN 05/15/25 8:35 AM PT and OT notes completed. Tasked pre-certification team to begin insurance authorization for patient to go to Telephone. Patient Discharge Plan: [facility] at [facility] (accepted) and pending insurance authorization. Plan of Care: [facility] (SNF) [phone] Fax CRF at Discharge Follow up appointments: Orthopedics would like to see patient in two weeks. This was added to AVS for SNF to schedule for patient. - Purvi Cardenas RN 05/15/25 12:58 PM Insurance authorization received. Provider placed discharge order. Preadmission Screening & Resident Review (PASSR) PASSR completed via the [employer] Electronic Notification System) ODM 7000 (short form) completed and submitted? yes Is a Level II Evaluation required? no [facility] completion. yes CRF sent via CarePort yes Patient Discharge Plan: [facility] at [facility] (accepted) and insurance authorization received. Plan of Care: [facility] (SNF) [phone] Fax CRF at Discharge Follow up appointments: Orthopedics would like to see patient in two weeks. This was added to AVS for SNF to schedule for patient. - Purvi Cardenas RN 05/15/25 2:51 PM * Plan of Care - Ely Riddle RN - 05/14/2025 11:33 PM EDT Problem: Safety Goal: Patient will be injury free during hospitalization Description: INTERVENTIONS: 1. Assess patient's risk for falls and implement fall prevention plan of care per policy 2. Provide and maintain a safe environment 3. Proper use of double Identifiers 4. Medication administration using the 5 rights 5. Hand hygiene 6. Specimens are labeled at the bedside 7. Instruct patient/ patient patient relations representative about use of safety devices 8. Include patient/ patient patient relations representative in decisions related to safety Outcome: Progressing Note: Evaluation of progress towards goal: Mobility - bedrest, to be seen by PT. No injury/ trauma/fall. Hourly rounds completed. Problem: Activity Intolerance/Impaired Mobility [...] of right hip fracture, non surgical management, bedrest overnight. Problem: Neurosensory - Adult Goal: Achieves [...] breath sounds diminished, not in respiratory distress. * Wound Care - Yennifer Lloyd RN - 05/14/2025 1:45 PM EDT ET nurse note: ET seen patient for a Cale score of 16. Initial ET skin assessment completed. Patient has excoriation to groin. Cleanse with soap and water then pat dry daily then apply antifungal powder. Remaining pressure points clear. Skin protocols on chart. Continue to follow wound care order set and turnpatient every 2 hours. No additional concerns at this time. Please consult Wound Care Services withany new skin concerns. * Situational Awareness - Felix Hallman MD - 05/14/2025 1:[address] Joiner notified of this patient Patient has not established care with Dr. Joiner. Dr. Diane rutledge wouldlike us to continue medical care of this patient during hospital stay * PT/OT/TRAFFIC SERGEANT - Juana Ramsey OTR/L - 05/14/2025 1:29 PM EDT Occupational Therapy OT Type of Visit: Medical deferral Reason For Medical Deferral: Provider input needed OT defers eval due to nondisplaced fracture of lesser trochanter of R femur, await ortho for WB status to ensure safe completion of ADL tasks. OT to continue to follow. * Discharge Planning Note - Purvi Cardenas RN - 05/14/2025 1:19 PM EDT Images from the original note were not included. Discharge Planning Assessment [facility] Admit Status: Inpatient Meet: Yes Readmission Risk: 31%. Date of Admission: 05/13/2025 GMLOS: 4.6 days Target Discharge Date: 05/17/2025 Discharge Planning Assessment completed at bedside and via phone with patient's daughter, Ismael. Rat Farmer identified self and role to the patient. [...] she states that recently Ismael has been assistingher. She states she dresses herself and there was concern that patient had the same clothes on for 3 days when she presented to the ER. She has some excoriation to the breast, abdominal fold and periarea. Nursing states that she required a bed bath upon arrival to unit as she had a foul odor. Rat Farmer spoke with daughter, Ismael. She is agreeable to skilled care after discharge. Ismael staes that patient now has Medicaid so they will not need to worry about a copay any longer. Lengthy discussion with Ismael auguste regardin gnursing concerns of yeast type rash and no change in clothes for3 days and her foul odor. Ismael states that her mother is refusing to shower at home and refusingto change her clothes. She states they were just approved for an aid through [employer]. However, there is no aid availability to send into the home yet. Rat Farmer discusses with Ismael that we will haev [...] Services Nurse visit Community Agencies Currently Utilized Intervention Analyst [Passport shoe caser and they plan to send an aidwhen they have availability.] Community Referrals / Resources Provided Denies needs Who is the existing DME Provider? [employer] ([email or web address]) ) Established DME Comments Walker, shower chair, [...] we didn't have money to get more.Never True Hunger Screening Complete? Yes Pt. Eligible [...] SNF Who is the existing DME Provider? [employer] ([email or web address]) ) Does the patient need discharge transportation arranged? Yes Transportation Arranged Ambulance Patient choice offered Patient declined List Provided Patient declined Patient Declined Other (must state reason) [Patient states she only wants to go to Telephone] DC Planning Complete Discharge Milestones Yes Pharmacy: [facility] PCP: Pam Stinson Consulting Providers this admission: Orthopedics for fracture Patient will make her own follow up appointments: no To be made by [facility] Patient Goals: Goals per daughter and patient to SNF (pt-stated) Evaluation of progress towards goal: Patient and daughter agree she will need skilled care as a result of the fracture she has. PT Recommends: Pending evaluation OT Recommends: Pending evaluation Patient denies need for alf facility list. She states she will not ever go to [facility] again. She will only go to [facility]. Tasked transition team to send referral. Plan to prevent readmission: To alf facility. As above lengthy discission with patient and daughter regarding the need for patient to be clean at home and take her showers and change her clothes. Patient/Family do not endorse any questions at this time. Patient Discharge Plan: [facility] at [facility] (accepted) and pending insurance authorization. Can't submit until we have PT/OT evaluation and recommendation. Patient is WBAT. Plan of Care: [facility] (SNF) [phone] Fax CRF at Discharge Follow up appointments: Orthopedics would like to see patient in two weeks. This was added to AVS for SNF to schedule for patient. Purvi Cardenas RN 05/14/25 1:25 PM * Discharge Planning Note - Brii Manley - 05/14/2025 11:14 AM EDT DISCHARGE PLANNING NOTE Referral sent to. [facility]/ [place], [place] (P# ; F# ) * PT/OT/TRAFFIC SERGEANT - Maryanne Hernandez, PT - 05/14/2025 10:48 AM EDT Physical Therapy PT Type of Visit: (P) Medical deferral Reason For Medical Deferral: (P) Provider input needed (Await ortho consult for weightbearing status.) PT will continue to follow this patient. RN aware that therapy awaits weightbearing status. Thank you for this referral. * Plan of Care - Migue Douglas RN - 05/14/2025 10:47 AM EDT Problem: Pain Goal: Patient goal is pain score less than 4, able to rest, and participant in treatment plan as appropriate Description: INTERVENTIONS: 1. Encourage patient or legal patient relations representative to report early pain and ask [...] per policy 9. Teach patient or legal patient relations representative interventions for comforting Outcome: Progressing Note: [...] at the bedside 7. Instruct patient/ patient patient relations representative about use of safety devices 8. Include patient/ patient patient relations representative in decisions related to safety Outcome: [...] hygiene technique. 7. Identify and instruct patient/patient patient relations representative in use of appropriate isolation precautionsfor identified infection/symptoms. 8. Provide and discuss with patient/patient patient relations representative on educational MDRO sheet. 9. Encourage and monitor nutritional status daily and consult form setter metal road forms if indicated. 10. Implement neutropenic guidelines as needed. Outcome: Progressing Note: Evaluation of progress towards goal: Pt afebrile at this time, continue to monitor for signs infection Problem: Knowledge Deficit Goal: Patient/patient patient relations representative demonstrates understanding of disease process, treatment plan,medications, and discharge instructions Description: INTERVENTIONS 1. Complete learning assessment and assess knowledge base 2. Provide teaching at level of understanding 3. Provide teaching via preferred learning method(s) Outcome: Progressing Note: Evaluation of progress towards goal: Evaluate, educate, reinforce learning needs and gaps t/oshift. Problem: Discharge Planning Goal: Discharge to post-acute [...] Handoff to next level of care provider (care director rn, PCP, home care). 5. Complete follow up [...] to maintain a patent airway and breath soundsare clear. Continue to monitor. Problem: Inadequate Breathing [...] to maintain a patent airway and breath soundsare clear. Continue to monitor. Goal: Patient will [...] to maintain a patent airway and breath soundsare clear. Continue to monitor. Problem: Anxiety Goal: Anxiety is at manageable level Description: Patient's goal is: INTERVENTIONS 1. Assess and monitor patient's anxiety level 2. Monitor for signs and symptoms of anxiety both physical and emotional (heart palpitations, chestpain, shortness of breath, headaches, nausea, feeling jumpy, [...] Collaborate with ancillary departments 14. Include patient/patient patient relations representative in decisions related to anxiety Outcome: Progressing Note: Evaluation of progress towards goal: Education and reassurance provided as needed to maintaina decreased level of fear/anxiety as needed. Problem: [...] care 6. Collaborate with pastoral/spiritual care, social sciences research scientist, mental health counselor as needed. 7. Instruct patient on diversional activities such as physical activity, distraction, and deep breathing exercises to assist with coping 8. Involve patient's patient relations representative in care Outcome: Progressing Note: Evaluation [...] be free from fall Description: Interventions: 1. [place] to environment 2. Hourly rounds addressing the [...] non-skid footwear 11. Teach patient and patient patient relations representative to maintain environment for safety and [...] (cane, walker) within reach 19. Request patient patient relations representative bring adaptive equipment/mobility aids from home or obtain and provide as needed 20. Consult pharmacy regarding effects of med's affecting mobility, cognition, and alternatives 21. Obtain physician order for PT if risk factors associated with mobility are present 22. Obtain physician order for OT as appropriate 23. Utilize diversional activities 24. Educate patient and patient patient relations representative how to maintain a safe environment during visitationtimes (notify nurse prior to leaving bedside) 25. Consider appropriateness of medical or non-emergency medical technician/driver 26. Set up voiding schedule as appropriate [...] supplement as ordered 13. Collaborate with clinical form setter metal road forms 14. Include patient/ patient's patient relations representative in decisions related to nutrition Outcome: [...] skin protectant applied as needed, labs monitored. * Plan of Care - Genoevva Medley RN - 05/13/2025 11:41 PM EDT Problem: Pain Goal: Patient goal is pain score less than 4, able to rest, and participant in treatment plan as appropriate Description: INTERVENTIONS: 1. Encourage patient or legal patient relations representative to report early pain and ask [...] per policy 9. Teach patient or legal patient relations representative interventions for comforting Outcome: Progressing Note: [...] at the bedside 7. Instruct patient/ patient patient relations representative about use of safety devices 8. Include patient/ patient patient relations representative in decisions related to safety Outcome: [...] hygiene technique. 7. Identify and instruct patient/patient patient relations representative in use of appropriate isolation precautionsfor identified infection/symptoms. 8. Provide and discuss with patient/patient patient relations representative on educational MDRO sheet. 9. Encourage and monitor nutritional status daily and consult form setter metal road forms if indicated. 10. Implement neutropenic guidelines as needed. Outcome: Progressing Note: Evaluation of progress towards goal: Pt receiving IV ATB. * Plan of Care - Cristóbal Becerra RN - 05/13/2025 4:43 PM EDT Problem: Pain Goal: Patient goal is pain score less than 4, able to rest, and participant in treatment plan as appropriate Description: INTERVENTIONS: 1. Encourage patient or legal patient relations representative to report early pain and ask [...] per policy 9. Teach patient or legal patient relations representative interventions for comforting Outcome: Progressing Note: [...] at the bedside 7. Instruct patient/ patient patient relations representative about use of safety devices 8. Include patient/ patient patient relations representative in decisions related to safety Outcome: [...] hygiene technique. 7. Identify and instruct patient/patient patient relations representative in use of appropriate isolation precautionsfor identified infection/symptoms. 8. Provide and discuss with patient/patient patient relations representative on educational MDRO sheet. 9. Encourage and monitor nutritional status daily and consult form setter metal road forms if indicated. 10. Implement neutropenic guidelines as needed. Outcome: Progressing Note: Evaluation of progress towards goal: Isolation precautions followed per protocol. Equipment cleaned between patients. Handwashing protocol followed. [facility] Narrative* Fleix Hallman MD - 05/15/2025 2:11 PM EDT Images from the original note were not included. [facility] ATUL ZABALA INTER[facility] - ACUTE CARE [facility] [address] [facility] [id number] Hospital Medicine Discharge Summary Patient: Cuca Dee Date of : 1945 Room: Encounter date: 05/15/25 DATE OF ADMISSION: 05/13/2025 DATE OF DISCHARGE:05/15/2025 DISCHARGE DIAGNOSES Principal Problem: Acute respiratory failure with hypoxia [place] Active Problems: 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 mellitus ([facility] Mixed diabetic hyperlipidemia associated with type 2 diabetes mellitus ([facility]) Obstructive sleep apnea syndrome Essential (primary) hypertension Acute on chronic diastolic congestive heart failure ([facility]) Stage 3b chronic kidney disease ([facility]) Type 2 diabetes mellitus with diabetic chronic kidney disease ([facility]) Iron deficiency anemia Hypomagnesemia Closed fracture of right hip ([facility] Nondisplaced fracture of lesser trochanter of right femur, initial encounter for closed fracture ([facility] CONSULTANTS None PCP: Pam Stinson, BRUSH WORKER-SEWER CONNECTOR PROCEDURES None HOSPITAL COURSE SUMMARY Per HPI: [...] yesterday showed chronic L1 fracture with minimal worseningof retropulsion. EMS called to the home for [...] admitted for staph bacteremia in February. Hypoxia isnew today. Patient was not appear that she has been cared for home. She lives with her daughter butjake arrived wearing the same clothes as yesterday and in a soiled brief. It does not appear that she was receiving any care at home. Because of the patient's tachycardia, lethargy, initial soft bloodpressure and recent admission for bacteremia without a [...] Intake/Output Summary (Last 24 hours) at 05/15/2025 4580 Last data filed at 05/15/2025 1328 Gross [...] Extra Tubes. Procedure Abnormality Status --------- ------ [facility] TOP[[id number]] Final result Please view results for these [...] Tubes. Procedure Abnormality Status --------- ------ [facility] TOP[[id number]] Final result Please view results for these [...] Villarreal-white matter differentiation is appropriate. Infarcts and massesmay [...] valve replacement. The distal portion of a NON DESTRUCTIVE TESTER shunt is seen within the abdomen. [...] ovarian. There is partial visualization of a NON DESTRUCTIVE TESTER shunt and changes of aortic valve [...] coned-down views of the lumbar spine obtained. FINDINGS:Five lumbar-type vertebrae. The lumbar alignment is maintained [...] COMPARISONS: 02/12/2025. FINDINGS: Right frontal ventriculostomy unchanged withtip at midline near foramina of Castillo similar [...] nutrition supplements Adult diet Follow up: Pam Stinson, ALICE-BARTOLO within 7-14 days. Labs/Imaging/Pathology: Metabolic panel in [...] KAIDEN Hopkins, 05/15/2025 5:24 PM [facility] Internal Medicine 7AM-7PM & 7PM-7AM: [...] have escaped final proofreading. KAIDEN Hopkins 05/15/25 5901 Physician Attestation I, Felix Hallman MD, personally [...] and nondisplaced fracture of lesser trochanter of rightfemur. Patient was started on diuretics, antibiotics. Orthopedic surgery managed the patient conservatively. Per PT/OT recommendation patient is being discharged to SNF in stable condition. [id number] Progress note* Discharge Planning Note - Sheela Velásquez - 05/15/2025 1:59 PM EDT DISCHARGE PLANNING NOTE Prior Auth approved for admission to : [facility]/ [place], [place] (P# ; F# ) Approval # [id number] Valid for Dates: 05/15/2025 - 05/21/2025 [facility] [employer] - F[employer] for the rest of [id number] Plan of care note* Plan of Care - Migue Douglas RN - 05/15/2025 1:54 PM EDT Problem: Pain Goal: Patient goal is pain score less than 4, able to rest, and participant in treatment plan as appropriate Description: INTERVENTIONS: 1. Encourage patient or legal patient relations representative to report early pain and ask [...] per policy 9. Teach patient or legal patient relations representative interventions for comforting Outcome: Progressing Note: [...] at the bedside 7. Instruct patient/ patient patient relations representative about use of safety devices 8. Include patient/ patient patient relations representative in decisions related to safety Outcome: [...] hygiene technique. 7. Identify and instruct patient/patient patient relations representative in use of appropriate isolation precautionsfor identified infection/symptoms. 8. Provide and discuss with patient/patient patient relations representative on educational MDRO sheet. 9. Encourage and monitor nutritional status daily and consult form setter metal road forms if indicated. 10. Implement neutropenic guidelines as needed. Outcome: Progressing Note: Evaluation of progress towards goal: Pt afebrile at this time, continue to monitor for signs infection Problem: Knowledge Deficit Goal: Patient/patient patient relations representative demonstrates understanding of disease process, treatment plan,medications, and discharge instructions Description: INTERVENTIONS 1. Complete learning assessment and assess knowledge base 2. Provide teaching at level of understanding 3. Provide teaching via preferred learning method(s) Outcome: Progressing Note: Evaluation of progress towards goal: Evaluate, educate, reinforce learning needs and gaps t/oshift. Problem: Discharge Planning Goal: Discharge to post-acute [...] Handoff to next level of care provider (care director rn, PCP, home care). 5. Complete follow up [...] to maintain a patent airway and breath soundsare clear. Continue to monitor. Problem: Inadequate Breathing [...] to maintain a patent airway and breath soundsare clear. Continue to monitor. Goal: Patient will [...] to maintain a patent airway and breath soundsare clear. Continue to monitor. Problem: Anxiety Goal: Anxiety is at manageable level Description: Patient's goal is: INTERVENTIONS 1. Assess and monitor patient's anxiety level 2. Monitor for signs and symptoms of anxiety both physical and emotional (heart palpitations, chestpain, shortness of breath, headaches, nausea, feeling jumpy, [...] Collaborate with ancillary departments 14. Include patient/patient patient relations representative in decisions related to anxiety Outcome: Progressing Note: Evaluation of progress towards goal: Education and reassurance provided as needed to maintaina decreased level of fear/anxiety as needed. Problem: [...] care 6. Collaborate with pastoral/spiritual care, social sciences research scientist, mental health counselor as needed. 7. Instruct patient on diversional activities such as physical activity, distraction, and deep breathing exercises to assist with coping 8. Involve patient's patient relations representative in care Outcome: Progressing Note: Evaluation [...] be free from fall Description: Interventions: 1. [place] to environment 2. Hourly rounds addressing the [...] non-skid footwear 11. Teach patient and patient patient relations representative to maintain environment for safety and [...] (cane, walker) within reach 19. Request patient patient relations representative bring adaptive equipment/mobility aids from home or obtain and provide as needed 20. Consult pharmacy regarding effects of med's affecting mobility, cognition, and alternatives 21. Obtain physician order for PT if risk factors associated with mobility are present 22. Obtain physician order for OT as appropriate 23. Utilize diversional activities 24. Educate patient and patient patient relations representative how to maintain a safe environment during visitationtimes (notify nurse prior to leaving bedside) 25. Consider appropriateness of medical or non-emergency medical technician/driver 26. Set up voiding schedule as appropriate [...] supplement as ordered 13. Collaborate with clinical form setter metal road forms 14. Include patient/ patient's patient relations representative in decisions related to nutrition Outcome: [...] to participate in self care with no limitations.Continue to monitor. Problem: Cardiovascular - Adult Goal: [...] to ensure perfusion and oxygenation and ventilation N(i)²07-01-2025 Progress note* PT/OT/TRAFFIC SERGEANT - Maryanne Hernandez, PT - 05/15/2025 9:51 AM EDT Physical Therapy Evaluation Discharge Recommendations for Safe Patient Transition Discharge Recommendations: Post acute - moderate Post Acute Moderate Rehab Needs: Recommend moderate intensity rehab, Tolerate 1- 2 hrs of therapy 3-5 days/wk, Subacute or chronic functional impairment Current Impairments Informing Therapy Recommendation: Ambulation status/safety, Cognition, Fall risk, ADL status, Endurance level Wire Bender Support for-: Mobility Deficits, ADL Deficits, Cognitive [...] gait belt, IV/midline Weight Bearing Status: WBAT Telemetry/Childhood Development Teacher: Yes Oxygen Used: room air Other: fall risk Past Medical History: Diagnosis Date Anemia Arthritis Asthma very mild, no inhaler use Cataract Dental disease Depression Diabetes mellitus [place] Diabetes mellitus type 2, controlled ([facility] Encephalitis Foot fracture, left GERD (gastroesophageal reflux disease) Heart murmur HLD (hyperlipidemia) Hypertension Incontinence Injury of back Insulin dependent diabetes mellitus Kidney failure STAGE 4 Lumbar spondylolysis Murmur Obesity CHELSEA (obstructive sleep apnea) no machine Peptic ulceration Peripheral vascular disease Shortness of breath Stroke ([facility]) 02/27/2024 TIA (transient ischemic attack) Upper respiratory infection UTI (urinary tract infection) Visual impairment Wears dentures Past Surgical History: Procedure Laterality Date BREAST BIOPSY Right 03/01/2023 ULT BIOPSY CATARACT EXTRACTION SECTION SECTION 03/14/1974 EGD N/A 10/17/2019 Performed by Sarai Bell DO at [facility] H-PERCUTANEOUS CORONARY INTERVENTION HYSTEROSCOPY DILATION CURETTAGE MYOSURE N/A 01/29/2021 Performed by Jv Briones MD at [facility] INJECTION BLOCK EPIDURAL CAUDAL STEROID N/A 08/14/2022 Performed by Arnulfo Morgan MD at [facility] INJECTION BLOCK EPIDURAL CAUDAL STEROID N/A 06/06/2021 Performed by Arnulfo Morgan MD at [facility] INJECTION BLOCK EPIDURAL CAUDAL STEROID N/A 04/25/2021 Performed by Arnulfo Morgan MD at [facility] INJECTION CAUDAL EPIDURAL WITH CATHETER, STEROID N/A 05/03/2020 Performed by Arnulfo Morgan MD at [facility] IN[facility] CAUDAL EPIDURAL WITH CATHETER, STEROID N/A 11/24/2019 Performed by Arnulfo Morgan MD at [facility] INJECTION CAUDAL EPIDURAL WITH CATHETER, STEROID N/A 04/21/2019 Performed by Arnulfo Morgan MD at [facility] INJECTION MEDIAL BRANCH NERVE BLOCK Bilateral L 4/5, 5/1 Bilateral 08/18/2019 Performed by Arnulfo Morgan MD at [facility] INJECTION MEDIAL BRANCH NERVE BLOCK Bilateral L 4/5, 5/1 Bilateral 06/23/2019 Performed by Arnulfo Morgan MD at [facility] IN[facility] STEROID EPI 1 WITH SEDATION Right L 4, 5 NR Right 03/17/2019 Performed by Arnulfo Morgan MD at [facility] INJECTION STEROID EPI 1 WITH SEDATION: right L45 nroot Right 08/15/2018 Performed by Arnulfo Morgan MD at [facility] LEFT L4, AND 5 NERVE ROOT INJECTION 2 OF 2 Left 07/22/2018 Performed by Arnulfo Morgan MD at [facility] LEFT L4, AND L5 NERVE ROOT 1 OF 2 Left 07/04/2018 Performed by Arnulfo Morgan MD at [facility] SHUNT INSERTION TONSILLECTOMY AGE 4 Transcutaneous aortic valve replacement/Transfemoral/Kwan N/A 08/17/2023 Performed by Chava Norris MD at [facility] Valvuloplasty aortic N/A 06/03/2023 Performed by Chava Norris MD at [facility] Subjective Physical Therapy Comments: I think I'll be fine to go home, my daughter will help me. Pain Assessment Pain Assessment: No/denies pain (No pain at initiation of session. Increased pain with mobility butdoesn't rate on VAS. Pain resolves once re-positioned [...] bed (Daughter plans to get her a liftchair) Prior Function Lives With: Daughter (Grandson born a female, does not work, 18, has autism. Daughter doesn't work,on disability.) Receives Help From: Family Level of Mobility: Needs assistance with ADLs or functional transfers or gait (Reports needs assistto stand. Independent with dressing, limited sponge bathing. [...] call button and bedside table within reach. Deniesfurther needs. Transfers Sit to Stand: Max assist [...] for weight shifting, cues to sequence, assist tonegotiate walker.) Other: Begins session in bedside chair. [...] roll/reverse log roll technique to compensate for LEweakness and pain. Disciplines: PT Problem: Gait Dates: [...] Principal Problem: Acute respiratory failure with hypoxia ([facility]) Active Problems: 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 mellitus ([facility]) Mixed diabetic hyperlipidemia associated with type 2 diabetes mellitus ([facility]) Obstructive sleep apnea syndrome Essential (primary) hypertension Acute on chronic diastolic congestive heart failure ([facility]) Stage 3b chronic kidney disease ([facility]) Type 2 diabetes mellitus with diabetic chronic kidney disease ([facility]) Iron deficiency anemia Hypomagnesemia Closed fracture of right hip ([facility]) Nondisplaced fracture of lesser trochanter of right femur, initial encounter for closed fracture ([facility] [employer] [id number] Progress note* PT/OT/TRAFFIC SERGEANT - Juana Ramsey OTR/Trice - 05/15/2025 9:05 AM EDT Occupational Therapy Evaluation Discharge Recommendations for Safe Patient Transition Discharge Recommendations: Post acute - moderate Post Acute Moderate Rehab Needs: Recommend moderate intensity rehab, Subacute or chronic functionalimpairment, Tolerate 1-2 hrs of therapy 3-5 days/wk Current Impairments Informing Therapy Recommendation: Ambulation status/safety, Cognition, Fall risk, ADL status, Endurance level Wire Bender Support for-: Mobility Deficits, ADL Deficits, Cognitive [...] 10/17/2019 Performed by Sarai Bell DO at [facility] H-PERCUTANEOUS CORONARY INTERVENTION HYSTEROSCOPY DILATION CURETTAGE MYOSURE N/A 01/29/2021 Performed by Jv Briones MD at [facility] INJECTION BLOCK EPIDURAL CAUDAL STEROID N/A 08/14/2022 Performed by Arnulfo Morgan MD at [facility] INJECTION BLOCK EPIDURAL CAUDAL STEROID N/A 06/06/2021 Performed by Arnulof Morgan MD at [facility] INJECTION BLOCK EPIDURAL CAUDAL STEROID N/A 04/25/2021 Performed by Arnulfo Morgan MD at [facility] INJECTION CAUDAL EPIDURAL WITH CATHETER, STEROID N/A 05/03/2020 Performed by Arnulfo Morgan MD at [facility] INJECTION CAUDAL EPIDURAL WITH CATHETER, STEROID N/A 11/24/2019 Performed by Arnulfo Morgan MD at [facility] INJECTION CAUDAL EPIDURAL WITH CATHETER, STEROID N/A 04/21/2019 Performed by Arnulfo Morgan MD at [facility] INJECTION MEDIAL BRANCH NERVE BLOCK Bilateral L 4/5, 5/1 Bilateral 08/18/2019 Performed by Arnulfo Morgan MD at [facility] INJECTION MEDIAL BRANCH NERVE BLOCK Bilateral L 4/5, 5/1 Bilateral 06/23/2019 Performed by Arnulfo Morgan MD at [facility] INJECTION STEROID EPI 1 WITH SEDATION Right L 4, 5 NR Right 03/17/2019 Performed by Arnulfo Morgan MD at [facility] INJECTION STEROID EPI 1 WITH SEDATION: right L45 nroot Right 08/15/2018 Performed by Arnulfo Morgan MD at [facility] LEFT L4, AND 5 NERVE ROOT INJECTION 2 OF 2 Left 07/22/2018 Performed by Arnulfo Morgan MD at [facility] LEFT L4, AND L5 NERVE ROOT 1 OF 2 Left 07/04/2018 Performed by Arnulfo Morgan MD at [facility] SHUNT INSERTION TONSILLECTOMY AGE 4 Transcutaneous aortic valve replacement/Transfemoral/Kwan N/A 08/17/2023 Performed by Chava Norris MD at [facility] Valvuloplasty aortic N/A 06/03/2023 Performed by Chava Norris MD at [facility] Past Medical History: Diagnosis Date Anemia Arthritis Asthma very mild, no inhaler use Cataract Dental disease Depression Diabetes mellitus [place] Diabetes mellitus type 2, controlled ([facility] Encephalitis Foot fracture, left GERD (gastroesophageal reflux disease) Heart murmur HLD (hyperlipidemia) Hypertension Incontinence Injury of back Insulin dependent diabetes mellitus Kidney failure STAGE 4 Lumbar spondylolysis Murmur Obesity CHELSEA (obstructive sleep apnea) no machine Peptic ulceration Peripheral vascular disease Shortness of breath Stroke ([facility] 02/27/2024 TIA (transient ischemic attack) Upper respiratory [...] gait belt, IV/midline Weight Bearing Status: WBAT Telemetry/Childhood Development Teacher: Yes Oxygen Used: room air Other: fall [...] in the community- [place] Hom[place] Assistance: Needs assistance (daugther and grandson [...] Deficit: R sock (due to pain) Other: teletypewriter operator introduced slef role and goals, teletypewriter operator zulma with patient. patient agreeable to eval. completes sponge bath while seated on edge of bed, changes gown once seated in chair. brekfast tray arrives and session terminated Home Management - IADL Other: teletypewriter operator introduced slef role and goals, teletypewriter operator zulma with patient. patient agreeable to eval. [...] , head of bed elevated and use ofbed rail) Other: remains in chair at end [...] Principal Problem: Acute respiratory failure with hypoxia ([facility]) Active Problems: 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 mellitus ([facility]) Mixed diabetic hyperlipidemia associated with type 2 diabetes mellitus ([facility]) Obstructive sleep apnea syndrome Essential (primary) hypertension Acute on chronic diastolic congestive heart failure ([facility]) Stage 3b chronic kidney disease ([facility]) Type 2 diabetes mellitus with diabetic chronic kidney disease ([facility]) Iron deficiency anemia Hypomagnesemia Closed fracture of right hip ([facility] Nondisplaced fracture of lesser trochanter of right femur, initial encounter for closed fracture ([facility]) N(i)² Work Phone: [phone] 872-212407-01-2025 Progress note* Discharge Planning Note - Purvi Cardenas RN - 05/15/2025 8:35 AM EDT DISCHARGE PLANNING NOTE Cuca Dee PT/OT reminded via secure chat that we need PT/OT notes to submit for SNF insurance authorization. Patient Discharge Plan: [facility] at [facility] (accepted) and pending insurance authorization. Can't submit until we have PT/OT evaluation and recommendation. Patient is WBAT. Plan of Care: [facility] (SNF) [phone] Fax CRF at Discharge Follow up appointments: Orthopedics would like to see patient in two weeks. This was added to AVS for SNF to schedule for patient. - Purvi Cardenas RN 05/15/25 8:35 AM PT and OT notes completed. Tasked pre-certification team to begin insurance authorization for patient to go to Telephone. Patient Discharge Plan: [facility] at [facility] (accepted) and pending insurance authorization. Plan of Care: [facility] (SNF) [phone] Fax CRF at Discharge Follow up appointments: Orthopedics would like to see patient in two weeks. This was added to AVS for SNF to schedule for patient. - Purvi Cardenas RN 05/15/25 12:58 PM Insurance authorization received. Provider placed discharge order. Preadmission Screening & Resident Review (PASSR) PASSR completed via the [employer] Electronic Notification System) ODM 1571 (short form) completed and submitted? yes Is a Level II Evaluation required? no SNF notified on [facility] of PASSR completion. yes CRF sent via [employer]Port yes Patient Discharge Plan: [facility] at [facility] (accepted) and insurance authorization received. Plan of Care: [facility] (SNF) [phone] Fax CRF at Discharge Follow up appointments: Orthopedics would like to see patient in two weeks. This was added to AVS for SNF to schedule for patient. - Purvi Cardenas RN 05/15/25 2:51 PM [facility] [id number] Plan of care note* Plan of Care - Ely Riddle RN - 05/14/2025 11:33 PM EDT Problem: Safety Goal: Patient will be injury free during hospitalization Description: INTERVENTIONS: 1. Assess patient's risk for falls and implement fall prevention plan of care per policy 2. Provide and maintain a safe environment 3. Proper use of double Identifiers 4. Medication administration using the 5 rights 5. Hand hygiene 6. Specimens are labeled at the bedside 7. Instruct patient/ patient patient relations representative about use of safety devices 8. Include patient/ patient patient relations representative in decisions related to safety Outcome: Progressing Note: Evaluation of progress towards goal: Mobility - bedrest, to be seen by PT. No injury/ trauma/fall. Hourly rounds completed. Problem: Activity Intolerance/Impaired Mobility [...] of right hip fracture, non surgical management, bedrest overnight. Problem: Neurosensory - Adult Goal: Achieves [...] breath sounds diminished, not in respiratory distress. [facility] Hospital Discharge instructions* Appointments * Migue Douglas RN - 05/14/2025 2:00 PM EDT May 23, at 1 pm. NOM's orthopedic follow up. documented in [facility]* Wound Care - Yennifer Lloyd RN - 05/14/2025 1:45 PM EDT ET nurse note: ET seen patient for a Cale score of 16. Initial ET skin assessment completed. Patient has excoriation to groin. Cleanse with soap and water then pat dry daily then apply antifungal powder. Remaining pressure points clear. Skin protocols on chart. Continue to follow wound care order set and turnpatient every 2 hours. No additional concerns at this time. Please consult Wound Care Services withany new skin concerns. [id number] Progress note* Situational Awareness - Felix Hallman MD - 05/14/2025 1:[address] Joiner notified of this patient Patient has not established care with Dr. Joiner. Dr. Diane rutledge wouldlike us to continue medical care of this patient during hospital stay [facility] Progress note* PT/OT/TRAFFIC SERGEANT - Juana Ramsey OTR/L - 05/14/2025 1:29 PM EDT Occupational Therapy OT Type of Visit: Medical deferral Reason For Medical Deferral: Provider input needed OT defers eval due to nondisplaced fracture of lesser trochanter of R femur, await ortho for WB status to ensure safe completion of ADL tasks. OT to continue to follow. [facility] Progress note* Discharge Planning Note - Purvi Cardenas RN - 05/14/2025 1:19 PM EDT Images from the original note were not included. Discharge Planning Assessment [place] Admit Status: Inpatient Meet: Yes Readmission Risk: 31%. Date of Admission: 05/13/2025 GMLOS: 4.6 days Target Discharge Date: 05/17/2025 Discharge Planning Assessment completed at bedside and via phone with patient's daughter, Ismael. Rat Farmer identified self and role to the patient. [...] she states that recently Ismael has been assistingher. She states she dresses herself and there was concern that patient had the same clothes on for 3 days when she presented to the ER. She has some excoriation to the breast, abdominal fold and periarea. Nursing states that she required a bed bath upon arrival to unit as she had a foul odor. Rat Farmer spoke with daughter, Ismael. She is agreeable to skilled care after discharge. Ismael staes that patient now has Medicaid so they will not need to worry about a copay any longer. Lengthy discussion with daughter, Ismael regardin gnursing concerns of yeast type rash and no change in clothes for3 days and her foul odor. Ismael states that her mother is refusing to shower at home and refusingto change her clothes. She states they were just approved for an aid through [employer]. However, there is no aid availability to send into the home yet. Rat Farmer discusses with Ismael that we will haev [...] Services Nurse visit Community Agencies Currently Utilized Intervention Analyst [Passport shoe caser and they plan to send an aidwhen they have availability.] Community Referrals / Resources Provided Denies needs Who is the existing DME Provider? [employer] ([email or web address]) ([phone]) Established DME Comments Walker, shower chair, and [...] we didn't have money to get more.Never True Hunger Screening Complete? Yes Pt. Eligible [...] SNF Who is the existing DME Provider? [employer] ([email or web address]) ) Does the patient need discharge transportation arranged? Yes Transportation Arranged Ambulance Patient choice offered Patient declined List Provided Patient declined Patient Declined Other (must state reason) [Patient states she only wants to go to Telephone] AL Planning Complete Discharge Milestones Yes Pharmacy: [facility] PCP: Pam Stinson Consulting Providers this admission: Orthopedics for fracture Patient will make her own follow up appointments: no To be made by [facility] Patient Goals: Goals per daughter and patient to SNF (pt-stated) Evaluation of progress towards goal: Patient and daughter agree she will need skilled care as a result of the fracture she has. PT Recommends: Pending evaluation OT Recommends: Pending evaluation Patient denies need for alf facility list. She states she will not ever go to [facility] again. She will only go to [facility]. Tasked transition team to send referral. Plan to prevent readmission: To alf facility. As above lengthy discission with patient and daughter regarding the need for patient to be clean at home and take her showers and change her clothes. Patient/Family do not endorse any questions at this time. Patient Discharge Plan: [facility] at [facility] (accepted) and pending insurance authorization. Can't submit until we have PT/OT evaluation and recommendation. Patient is WBAT. Plan of Care: [facility] (SNF) [phone] Fax CRF at Discharge Follow up appointments: Orthopedics would like to see patient in two weeks. This was added to AVS for SNF to schedule for patient. Purvi Cardenas RN 05/14/25 1:25 PM [facility] Consult note* Jh Schaefer, BRUSH WORKER-SEWER CONNECTOR - 05/14/2025 12:16 PM EDTAssociated Order(s): IP CONSULT TO ORTHOPEDIC SURGERY CONSULT NOTE: [...] female who presents with persistent right hip pain.Has been seen in ER 4 days in a row prior to admission. CT demonstrated a minimally displaced rightlesser trochanter fracture. History of HTN, HLD, previous stroke, CKD, DM, chronic back pain, s/p TAVR, CAD post PCI 2022, severe post TAVR, NHP post shunt, recently admitted for staph bacteremia in February PROBLEM: Principal Problem Acute respiratory failure with hypoxia ([facility]) RT lesser trochanter fracture. PAST MEDICAL HISTORY: Past Medical History: Diagnosis Date Anemia Arthritis Asthma very mild, no inhaler use Cataract Dental disease Depression Diabetes mellitus ([facility]) Diabetes mellitus type 2, controlled ([facility]) Encephalitis Foot fracture, left GERD (gastroesophageal reflux disease) Heart murmur HLD (hyperlipidemia) Hypertension Incontinence Injury of back Insulin dependent diabetes mellitus Kidney failure STAGE 4 Lumbar spondylolysis Murmur Obesity CHELSEA (obstructive sleep apnea) no machine Peptic ulceration Peripheral vascular disease Shortness of breath Stroke ([facility]) 02/27/2024 TIA (transient ischemic attack) Upper respiratory infection UTI (urinary tract infection) Visual impairment Wears dentures PAST SURGICAL HISTORY: Past Surgical History: Procedure Laterality Date BREAST BIOPSY Right 03/01/2023 ULT BIOPSY CATARACT EXTRACTION SECTION SECTION 03/14/1974 EGD N/A 10/17/2019 Performed by Sarai Bell DO at [facility] H-PERCUTANEOUS CORONARY INTERVENTION HYSTEROSCOPY DILATION CURETTAGE MYOSURE N/A 01/29/2021 Performed by Jv Briones MD at [facility] INJECTION BLOCK EPIDURAL CAUDAL STEROID N/A 08/14/2022 Performed by Arnulfo Morgan MD at [facility] INJECTION BLOCK EPIDURAL CAUDAL STEROID N/A 06/06/2021 Performed by Arnulfo Morgan MD at [facility] IN[facility] BLOCK EPIDURAL CAUDAL STEROID N/A 04/25/2021 Performed by Arnulfo Morgan MD at [facility] INJECTION CAUDAL EPIDURAL WITH CATHETER, STEROID N/A 05/03/2020 Performed by Arnulfo Morgan MD at [facility] IN[facility] CAUDAL EPIDURAL WITH CATHETER, STEROID N/A 11/24/2019 Performed by Arnulfo Morgan MD at [facility] IN[facility] CAUDAL EPIDURAL WITH CATHETER, STEROID N/A 04/21/2019 Performed by Arnulfo Morgan MD at [facility] INJECTION MEDIAL BRANCH NERVE BLOCK Bilateral L 4/5, 5/1 Bilateral 08/18/2019 Performed by Arnulfo Morgan MD at [facility] INJECTION MEDIAL BRANCH NERVE BLOCK Bilateral L 4/5, 5/1 Bilateral 06/23/2019 Performed by Arnulfo Morgan MD at [facility] INJECTION STEROID EPI 1 WITH SEDATION Right L 4, 5 NR Right 03/17/2019 Performed by Arnulfo Morgan MD at [facility] INJECTION STEROID EPI 1 WITH SEDATION: right L45 nroot Right 08/15/2018 Performed by Arnulfo Morgan MD at [facility] LEFT L4, AND 5 NERVE ROOT INJECTION 2 OF 2 Left 07/22/2018 Performed by Arnulfo Morgan MD at [facility] LEFT L4, AND L5 NERVE ROOT 1 OF 2 Left 07/04/2018 Performed by Arnulfo Morgan MD at [facility] SHUNT INSERTION TONSILLECTOMY AGE 4 Transcutaneous aortic valve replacement/Transfemoral/Kwan N/A 08/17/2023 Performed by Chava Norris MD at [facility] Valvuloplasty aortic N/A 06/03/2023 Performed by Chava Norris MD at [facility] ALLERGIES: No Known [...] total) by mouth nightly. 90 tablet 1 PastWeek nystatin (MYCOSTATIN) powder Apply 1 Application topically [...] 0 min Stress: Stress Concern Present (10/28/2024) [place] [employer] Occupational [employer] - Occupational Stress Questionnaire Feeling of Stress : To some extent Social Connections: Moderately Integrated (10/28/2024) Social Connection and Isolation Panel [NHANES] Frequency of Communication with Friends and Family: Never Frequency of Social Gatherings with Friends and Family: More than three times a week Attends Uatsdin Services: More than 4 times [...] temperature 36.5 C (97.7 F), temperature source Oral,resp. rate 20, height 165.1 cm (5' 5 [...] office to schedule prior to discharge at [phone]. Imaging [address] hip right without contrast Result [...] changes in the left hip No definite CTevidence of osteomyelitis. No soft tissue swelling or soft tissue gas. Noncontrast CT is not sensitive for early osteomyelitis and if osteomyelitis is suspected MRI for nuclear medicine labeled whitecell study would be best for further evaluation IMPRESSION: * Isolated minimally displaced fracturethrough the right lesser trochanter. * Degenerative changes in both hips. * No definite CT evidenceof osteomyelitis. No soft tissue swelling or soft [...] Range Extra Tube Auto Resulted Extra Urine [place] Collection Time: 05/12/25 1:01 PM Specimen: Urine, Clean Catch Midstream Result Value Ref Range Extra Tube Auto Resulted Urine Culture Urine, Clean Catch Midstream Collection Time: 05/12/25 1:01 PM Specimen: Urine, Clean Catch Midstream Result Value Ref Range CULTURE RESULTS NO GROWTH AT <1000 CFU/mL POCT Nursing Urine Macroscopic UA Collection Time: 05/12/25 1:12 PM Result Value Ref Range POC Urine Specific [place] 1.015 1.010, 1.015, 1.020, 1.025 POC Urine [...] Abnormality Status --------- ------ Troponin I, High Sensiti...[[id number]] Abnormal Final result Troponin I, High Sensiti...[[id number]] Abnormal Final result Please view results for [...] Procedure Abnormality Status --------- ------ Light Blue Top[[id number]] Final result Please view results for these [...] to the algorithms linked below. Emergency Patient: [email or web address] Inpatient: [email or web address] Bedside Glucose *Place/Obtain serum glucose if >500 per glucometer. Collection Time: 05/13/25 2:39 PM Result Value Ref Range Bedside Glucose (POC) 384 (H) 65 - 99 mg/dL Extra Tubes Collection Time: 05/13/25 7:54 PM Narrative The following orders were created for panel order Extra Tubes. Procedure Abnormality Status --------- ------ PST TOP[[id number]] Final result Please view results for these [...] Procedure Component Value Units Date/Time Blood culture [[id number]] Collected: 05/13/25 1109 Specimen: Blood, Venous Updated: 05/14/25 1002 CULTURE RESULTS NO GROWTH <24 HRS Blood culture [[id number]] Collected: 05/13/25 1108 Specimen: Blood, Venous Updated: 05/14/25 1002 CULTURE RESULTS NO GROWTH <24 HRS Narrative: Only aerobic bottle received Urine Culture Urine, Clean Catch Midstream [[id number]] Collected: 05/12/25 1301 Specimen: Urine, Clean Catch Midstream Updated: 05/13/25 1839 CULTURE RESULTS NO GROWTH AT <1000 CFU/mL KAIDEN VAZQUEZ APRN-CNP 05/14/25 1231 N(i)² Work Phone: [phone] 748-957106-30-2025 Consult note* KAIDEN Vazquez - 05/14/2025 12:16 PM EDTAssociated Order(s): IP CONSULT TO ORTHOPEDIC SURGERY CONSULT NOTE: [...] female who presents with persistent right hip pain.Has been seen in ER 4 days in a row prior to admission. CT demonstrated a minimally displaced rightlesser trochanter fracture. History of HTN, HLD, previous [...] use Cataract Dental disease Depression Diabetes mellitus ([facility]) Diabetes mellitus type 2, controlled ([facility]) Encephalitis Foot fracture, left GERD (gastroesophageal reflux disease) Heart murmur HLD (hyperlipidemia) Hypertension Incontinence Injury of back Insulin dependent diabetes mellitus Kidney failure STAGE 4 Lumbar spondylolysis Murmur Obesity CHELSEA (obstructive sleep apnea) no machine Peptic ulceration Peripheral vascular disease Shortness of breath Stroke ([facility]) 02/27/2024 TIA (transient ischemic attack) Upper respiratory infection UTI (urinary tract infection) Visual impairment Wears dentures PAST SURGICAL HISTORY: Past Surgical History: Procedure Laterality Date BREAST BIOPSY Right 03/01/2023 ULT BIOPSY CATARACT EXTRACTION SECTION SECTION 03/14/1974 EGD N/A 10/17/2019 Performed by Sarai Bell DO at [facility] H-PERCUTANEOUS CORONARY INTERVENTION HYSTEROSCOPY DILATION CURETTAGE MYOSURE N/A 01/29/2021 Performed by Jv Briones MD at [facility] INJECTION BLOCK EPIDURAL CAUDAL STEROID N/A 08/14/2022 Performed by Arnulfo Morgan MD at [facility] INJECTION BLOCK EPIDURAL CAUDAL STEROID N/A 06/06/2021 Performed by Arnulfo Morgan MD at [facility] IN[facility] BLOCK EPIDURAL CAUDAL STEROID N/A 04/25/2021 Performed by Arnulfo Morgan MD at [facility] INJECTION CAUDAL EPIDURAL WITH CATHETER, STEROID N/A 05/03/2020 Performed by Arnulfo Morgan MD at [facility] INJECTION CAUDAL EPIDURAL WITH CATHETER, STEROID N/A 11/24/2019 Performed by Arnulfo Morgan MD at [facility] INJECTION CAUDAL EPIDURAL WITH CATHETER, STEROID N/A 04/21/2019 Performed by Arnulfo Morgan MD at [facility] INJECTION MEDIAL BRANCH NERVE BLOCK Bilateral L 4/5, 5/1 Bilateral 08/18/2019 Performed by Arnulfo Morgan MD at [facility] INJECTION MEDIAL BRANCH NERVE BLOCK Bilateral L 4/5, 5/1 Bilateral 06/23/2019 Performed by Arnulfo Morgan MD at [facility] INJECTION STEROID EPI 1 WITH SEDATION Right L 4, 5 NR Right 03/17/2019 Performed by Arnulfo Morgan MD at [facility] INJECTION STEROID EPI 1 WITH SEDATION: right L45 nroot Right 08/15/2018 Performed by Arnulfo Morgan MD at [facility] LEFT L4, AND 5 NERVE ROOT INJECTION 2 OF 2 Left 07/22/2018 Performed by Arnulfo Morgan MD at [facility] LEFT L4, AND L5 NERVE ROOT 1 OF 2 Left 07/04/2018 Performed by Arnulfo Morgan MD at [facility] SHUNT INSERTION TONSILLECTOMY AGE 4 Transcutaneous aortic valve replacement/Transfemoral/Kwan N/A 08/17/2023 Performed by Chava Norris MD at [facility] Valvuloplasty aortic N/A 06/03/2023 Performed by Chava Norris MD at [facility] ALLERGIES: No Known [...] total) by mouth nightly. 90 tablet 1 PastWeek nystatin (MYCOSTATIN) powder Apply 1 Application topically [...] 0 min Stress: Stress Concern Present (10/28/2024) [place] [employer] - Occupational Stress Questionnaire Feeling of Stress : To some extent Social Connections: Moderately Integrated (10/28/2024) Social Connection and Isolation Panel [NHANES] Frequency of Communication with Friends and Family: Never Frequency of Social Gatherings with Friends and Family: More than three times a week Attends Uatsdin Services: More than 4 times [...] temperature 36.5 C (97.7 F), temperature source Oral,resp. rate 20, height 165.1 cm (5' 5 [...] office to schedule prior to discharge at [phone]. [address] hip right without contrast Result [...] changes in the left hip No definite CTevidence of osteomyelitis. No soft tissue swelling or soft tissue gas. Noncontrast CT is not sensitive for early osteomyelitis and if osteomyelitis is suspected MRI for nuclear medicine labeled whitecell study would be best for further evaluation IMPRESSION: * Isolated minimally displaced fracturethrough the right lesser trochanter. * Degenerative changes in both hips. * No definite CT evidenceof osteomyelitis. No soft tissue swelling or soft [...] Range Extra Tube Auto Resulted Extra Urine [place] Collection Time: 05/12/25 1:01 PM Specimen: Urine, Clean Catch Midstream Result Value Ref Range Extra Tube Auto Resulted Urine Culture Urine, Clean Catch Midstream Collection Time: 05/12/25 1:01 PM Specimen: Urine, Clean Catch Midstream Result Value Ref Range CULTURE RESULTS NO GROWTH AT <1000 CFU/mL POCT Nursing Urine Macroscopic UA Collection Time: 05/12/25 1:12 PM Result Value Ref Range POC Urine Specific [place] 1.015 1.010, 1.015, 1.020, 1.025 POC Urine [...] Abnormality Status --------- ------ Troponin I, High Sensiti...[[id number]] Abnormal Final result Troponin I, High Sensiti...[[id number]] Abnormal Final result Please view results for [...] Procedure Abnormality Status --------- ------ Light Blue Top[[id number]] Final result Please view results for these [...] to the algorithms linked below. Emergency Patient: [email or web address] Inpatient: [email or web address] Bedside Glucose *Place/Obtain serum glucose if >500 per glucometer. Collection Time: 05/13/25 2:39 PM Result Value Ref Range Bedside Glucose (POC) 384 (H) 65 - 99 mg/dL Extra Tubes Collection Time: 05/13/25 7:54 PM Narrative The following orders were created for panel order Extra Tubes. Procedure Abnormality Status --------- ------ PST TOP[[id number]] Final result Please view results for these [...] Procedure Component Value Units Date/Time Blood culture [[id number]] Collected: 05/13/25 1109 Specimen: Blood, Venous Updated: 05/14/25 1002 CULTURE RESULTS NO GROWTH <24 HRS Blood culture [[id number]] Collected: 05/13/25 1108 Specimen: Blood, Venous Updated: 05/14/25 1002 CULTURE RESULTS NO GROWTH <24 HRS Narrative: Only aerobic bottle received Urine Culture Urine, Clean Catch Midstream [[id number]] Collected: 05/12/25 1301 Specimen: Urine, Clean Catch Midstream Updated: 05/13/25 1839 CULTURE RESULTS NO GROWTH AT <1000 CFU/mL JH SCHAEFER, BRUSH WORKER-[facility] Jh Schaefer APRN-SEWER CONNECTOR 05/14/25 1231 * Joie Garcia, [facility] - 05/13/2025 2:51 PM EDTAssociated Order(s): PHARMACY TO DOSE VANCO Pharmacokinetic Consult [...] Procedure Component Value Units Date/Time Blood culture [[id number]] Collected: 05/13/25 1109 Specimen: Blood, Venous Updated: 05/13/25 112 Blood culture [[id number]] Collected: 05/13/25 1108 Specimen: Blood, Venous Updated: 05/13/25 1122 Urine Culture Urine, Clean Catch Midstream [[id number]] Collected: 05/12/25 1301 Specimen: Urine, Clean Catch [...] daily and draw peak and trough around 3rddose. Pharmacy Dosing Service to follow serum concentrations and adjust as needed based on the patient's clinical status. Thank you for consulting. Joie Garcia RPH documented in [facility] Progress note* Discharge Planning Note - Brii Manley - 05/14/2025 11:14 AM EDT DISCHARGE PLANNING NOTE Referral sent to. [facility]/ [facility], [place], [place] (P# ; F# ) [facility] [id number] Progress note* PT/OT/TRAFFIC SERGEANT - Maryanne Hernandez, PT - 05/14/2025 10:48 AM EDT Physical Therapy PT Type of Visit: (P) Medical deferral Reason For Medical Deferral: (P) Provider input needed (Await ortho consult for weightbearing status.) PT will continue to follow this patient. RN aware that therapy awaits weightbearing status. Thank you for this referral. [facility] [id number] Plan of care note* Plan of Care - Migue Douglas RN - 05/14/2025 10:47 AM EDT Problem: Pain Goal: Patient goal is pain score less than 4, able to rest, and participant in treatment plan as appropriate Description: INTERVENTIONS: 1. Encourage patient or legal patient relations representative to report early pain and ask [...] per policy 9. Teach patient or legal patient relations representative interventions for comforting Outcome: Progressing Note: [...] at the bedside 7. Instruct patient/ patient patient relations representative about use of safety devices 8. Include patient/ patient patient relations representative in decisions related to safety Outcome: [...] hygiene technique. 7. Identify and instruct patient/patient patient relations representative in use of appropriate isolation precautionsfor identified infection/symptoms. 8. Provide and discuss with patient/patient patient relations representative on educational MDRO sheet. 9. Encourage and monitor nutritional status daily and consult form setter metal road forms if indicated. 10. Implement neutropenic guidelines as needed. Outcome: Progressing Note: Evaluation of progress towards goal: Pt afebrile at this time, continue to monitor for signs infection Problem: Knowledge Deficit Goal: Patient/patient patient relations representative demonstrates understanding of disease process, treatment plan,medications, and discharge instructions Description: INTERVENTIONS 1. Complete learning assessment and assess knowledge base 2. Provide teaching at level of understanding 3. Provide teaching via preferred learning method(s) Outcome: Progressing Note: Evaluation of progress towards goal: Evaluate, educate, reinforce learning needs and gaps t/oshift. Problem: Discharge Planning Goal: Discharge to post-acute [...] Handoff to next level of care provider (care director rn, PCP, home care). 5. Complete follow up [...] to maintain a patent airway and breath soundsare clear. Continue to monitor. Problem: Inadequate Breathing [...] to maintain a patent airway and breath soundsare clear. Continue to monitor. Goal: Patient will [...] to maintain a patent airway and breath soundsare clear. Continue to monitor. Problem: Anxiety Goal: Anxiety is at manageable level Description: Patient's goal is: INTERVENTIONS 1. Assess and monitor patient's anxiety level 2. Monitor for signs and symptoms of anxiety both physical and emotional (heart palpitations, chestpain, shortness of breath, headaches, nausea, feeling jumpy, [...] Collaborate with ancillary departments 14. Include patient/patient patient relations representative in decisions related to anxiety Outcome: Progressing Note: Evaluation of progress towards goal: Education and reassurance provided as needed to maintaina decreased level of fear/anxiety as needed. Problem: [...] care 6. Collaborate with pastoral/spiritual care, social sciences research scientist, mental health counselor as needed. 7. Instruct patient on diversional activities such as physical activity, distraction, and deep breathing exercises to assist with coping 8. Involve patient's patient relations representative in care Outcome: Progressing Note: Evaluation [...] be free from fall Description: Interventions: 1. [place] to environment 2. Hourly rounds addressing the [...] non-skid footwear 11. Teach patient and patient patient relations representative to maintain environment for safety and [...] (cane, walker) within reach 19. Request patient patient relations representative bring adaptive equipment/mobility aids from home or obtain and provide as needed 20. Consult pharmacy regarding effects of med's affecting mobility, cognition, and alternatives 21. Obtain physician order for PT if risk factors associated with mobility are present 22. Obtain physician order for OT as appropriate 23. Utilize diversional activities 24. Educate patient and patient patient relations representative how to maintain a safe environment during visitationtimes (notify nurse prior to leaving bedside) 25. Consider appropriateness of medical or non-emergency medical technician/driver 26. Set up voiding schedule as appropriate [...] supplement as ordered 13. Collaborate with clinical form setter metal road forms 14. Include patient/ patient's patient relations representative in decisions related to nutrition Outcome: [...] skin protectant applied as needed, labs monitored. [facility]06-30-[facility]25 History and physical note* Felix Hallman MD - 05/14/2025 8:34 AM EDT Images from the original note were not included. [facility] INTERNAL MEDICINE [facility] [address] [id number] Hospital Medicine History & Physical Patient: Cuca [...] without clear etiology other than musculoskeletal pain. Sherefused admission yesterday. Pain is in the right [...] admitted for staph bacteremia in February. Hypoxia isnew today. Patient was not appear that she has been cared for home. She lives with her daughter butshe arrived wearing the same clothes as yesterday and in a soiled brief. It does not appear that she was receiving any care at home. Because of the patient's tachycardia, lethargy, initial soft bloodpressure and recent admission for bacteremia without a [...] by mouth in the morning. 02/25/25 KAIDEN Rose gabapentin (NEURONTIN) 300 mg capsule Take 2 [...] total) by mouth in the morning. 01/28/25 YesNot In System Ref Prov traMADoL (ULTRAM) 50 [...] Asthma, Cataract, Dental disease, Depression, Diabetes mellitus ([facility] Diabetes mellitus type 2, controlled ([facility]), Encephalitis, Foot fracture, left, GERD (gastroesophageal reflux disease), Heart murmur, HLD (hyperlipidemia), Hypertens ion, Incontinence, Injury of back, Insulin dependent diabetes mellitus, Kidney failure, Lumbar spondylolysis, Murmur, Obesity, CHELSEA (obstructive sleep apnea), Peptic ulceration, Peripheral vascular disease, Shortness of breath, Stroke ([facility]) (02/27/2024), TIA (transient ischemic attack), Upper respiratory [...] Normal pulses. Comments: Sinus tachycardia noted on cook pressure heart rate of 104 Pulmonary: Effort: Pulmonary [...] Tubes. Procedure Abnormality Status --------- ------ PST TOP[[id number]] Final result Please view results for these [...] valve replacement. The distal portion of a NON DESTRUCTIVE TESTER shunt is seen within the abdomen. [...] ovarian. There is partial visualization of a NON DESTRUCTIVE TESTER shunt and changes of aortic valve [...] coned-down views of the lumbar spine obtained. FINDINGS:Five lumbar-type vertebrae. The lumbar alignment is maintained [...] COMPARISONS: 02/12/2025. FINDINGS: Right frontal ventriculostomy unchanged withtip at midline near foramina of Castillo similar [...] Principal Problem: Acute respiratory failure with hypoxia ([facility]) Active Problems: 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 mellitus ([facility]) Mixed diabetic hyperlipidemia associated with type 2 diabetes mellitus ([facility]) Obstructive sleep apnea syndrome Essential (primary) hypertension Acute on chronic diastolic congestive heart failure ([facility]) Stage 3b chronic kidney disease ([facility]) Type 2 diabetes mellitus with diabetic chronic kidney disease ([facility]) Iron deficiency anemia Hypomagnesemia Closed fracture of right hip ([facility]) Nondisplaced fracture of lesser trochanter of right femur, initial encounter for closed fracture ([facility]) ASSESSMENT & PLAN Acute respiratory failure with [...] was pulled out 3 IVs in 1 midline.After reviewing labs and vital signs, will discontinue [...] as evidenced by altered mental status. Presumed source;sepsis of unknown origin. Testing obtained; blood cultures x2, urine culture, and lactate. Fluid resuscitation; less than 30 ml/kg IVF bolus due to high risk of being harmful due to not meeting septic shock criteria, instead no ml IVF bolus. Antibiotics; Zosyn and vancomycin. Vasopressors; not required. Vj Gray APRN-BARTOLO, 05/14/2025 1:37 PM [facility] Internal Medicine 7AM-7PM & 7PM-7AM: EpicChat [...] with a normal limit 1.05 on 08/23/2024. [facility]06-30[facility]25 History and physical note* Felix Hallman MD - 05/14/2025 8:34 AM EDT Images from the original note were not included. [facility] INTERNAL MEDICINE [facility] [address] [facility] [phone] [facility] Medicine History & Physical Patient: Cuca [...] without clear etiology other than musculoskeletal pain. Sherefused admission yesterday. Pain is in the right [...] admitted for staph bacteremia in February. Hypoxia isnew today. Patient was not appear that she has been cared for home. She lives with her daughter butshe arrived wearing the same clothes as yesterday and in a soiled brief. It does not appear that she was receiving any care at home. Because of the patient's tachycardia, lethargy, initial soft bloodpressure and recent admission for bacteremia without a [...] by mouth in the morning. 02/25/25 KAIDEN Rose gabapentin (NEURONTIN) 300 mg capsule Take 2 [...] total) by mouth in the morning. 01/28/25 YesNot In System Ref Prov traMADoL (ULTRAM) 50 [...] taking: Reported on 05/13/2025 08/24/24 Vj Gray APRN-SEWER CONNECTOR Code Status: Full Code Past Medical History: Patient has a past medical history of Anemia, Arthritis, Asthma, Cataract, Dental disease, Depression, Diabetes mellitus ([facility] Diabetes mellitus type 2, controlled ([facility]), Encephalitis, Foot fracture, left, GERD (gastroesophageal reflux disease), Heart murmur, HLD (hyperlipidemia), Hypertens ion, Incontinence, Injury of back, Insulin dependent diabetes mellitus, Kidney failure, Lumbar spondylolysis, Murmur, Obesity, CHELSEA (obstructive sleep apnea), Peptic ulceration, Peripheral vascular disease, Shortness of breath, Stroke ([facility]) (02/27/2024), TIA (transient ischemic attack), Upper respiratory [...] Normal pulses. Comments: Sinus tachycardia noted on cook pressure heart rate of 104 Pulmonary: Effort: Pulmonary [...] Tubes. Procedure Abnormality Status --------- ------ PST TOP[[id number]] Final result Please view results for these [...] valve replacement. The distal portion of a NON DESTRUCTIVE TESTER shunt is seen within the abdomen. [...] ovarian. There is partial visualization of a NON DESTRUCTIVE TESTER shunt and changes of aortic valve [...] coned-down views of the lumbar spine obtained. FINDINGS:Five lumbar-type vertebrae. The lumbar alignment is maintained [...] COMPARISONS: 02/12/2025. FINDINGS: Right frontal ventriculostomy unchanged withtip at midline near foramina of Castillo similar [...] diabetes mellitus with diabetic chronic kidney disease ([facility]) Iron deficiency anemia Hypomagnesemia Closed fracture of right hip ([facility]) Nondisplaced fracture of lesser trochanter of right femur, initial encounter for closed fracture ([facility]) ASSESSMENT & PLAN Acute respiratory failure with [...] was pulled out 3 IVs in 1 midline.After reviewing labs and vital signs, will discontinue [...] as evidenced by altered mental status. Presumed source;sepsis of unknown origin. Testing obtained; blood cultures x2, urine culture, and lactate. Fluid resuscitation; less than 30 ml/kg IVF bolus due to high risk of being harmful due to not meeting septic shock criteria, instead no ml IVF bolus. Antibiotics; Zosyn and vancomycin. Vasopressors; not required. KAIDEN Hopkins, 05/14/2025 1:37 PM [facility] Internal Medicine 7AM-7PM & 7PM-7AM: EpicChat [...] limit 1.05 on 08/23/2024. [facility] Plan of care note * Plan of Care - Genoveva Medley RN - 05/13/2025 11:41 PM EDT Problem: Pain Goal: Patient goal is pain score less than 4, able to rest, and participant in treatment plan as appropriate Description: INTERVENTIONS: 1. Encourage patient or legal patient relations representative to report early pain and ask [...] per policy 9. Teach patient or legal patient relations representative interventions for comforting Outcome: Progressing Note: [...] at the bedside 7. Instruct patient/ patient patient relations representative about use of safety devices 8. Include patient/ patient patient relations representative in decisions related to safety Outcome: [...] hygiene technique. 7. Identify and instruct patient/patient patient relations representative in use of appropriate isolation precautionsfor identified infection/symptoms. 8. Provide and discuss with patient/patient patient relations representative on educational MDRO sheet. 9. Encourage and monitor nutritional status daily and consult form setter metal road forms if indicated. 10. Implement neutropenic guidelines as needed. Outcome: Progressing Note: Evaluation of progress towards goal: Pt receiving IV ATB. [facility] [id number] Nurse Note* Genoveva Medley RN - 05/13/2025 10:20 PM EDT Pt pulled put her IV and when teletypewriter operator asked why she stated, I don't know, I can't stop picking. New IV placed-ultrasound guided. Education provided and teach back method used. Pt able to state why she should not remove the medical equipment. Pt has taken off oxygen and tele patches several times despite redirection. Tele sitter initiated. Bed remains locked and lowered. Bed alarm on and call light within reach. [facility]06-29-[facility] Nurse Note* Genoveva Medley RN - 05/13/2025 10:20 PM EDT Pt pulled put her IV and when teletypewriter operator asked why she stated, I don't know, [...] call light within reach. documented in this encounterCommunity [facility] Plan of care note * Plan of Care - Cristóbal Becerra RN - 05/13/2025 4:43 PM EDT Problem: Pain Goal: Patient goal is pain score less than 4, able to rest, and participant in treatment plan as appropriate Description: INTERVENTIONS: 1. Encourage patient or legal patient relations representative to report early pain and ask [...] per policy 9. Teach patient or legal patient relations representative interventions for comforting Outcome: Progressing Note: [...] at the bedside 7. Instruct patient/ patient patient relations representative about use of safety devices 8. Include patient/ patient patient relations representative in decisions related to safety Outcome: [...] hygiene technique. 7. Identify and instruct patient/patient patient relations representative in use of appropriate isolation precautionsfor identified infection/symptoms. 8. Provide and discuss with patient/patient patient relations representative on educational MDRO sheet. 9. Encourage and monitor nutritional status daily and consult form setter metal road forms if indicated. 10. Implement neutropenic guidelines as needed. Outcome: Progressing Note: Evaluation of progress towards goal: Isolation precautions followed per protocol. Equipment cleaned between patients. Handwashing protocol followed. [facility]06[facility] Consult note* Joie Garcia, [facility] - 05/13/2025 2:51 PM EDTAssociated Order(s): PHARMACY TO DOSE VANCO Pharmacokinetic Consult [...] Procedure Component Value Units Date/Time Blood culture [[id number]] Collected: 05/13/25 1109 Specimen: Blood, Venous Updated: 05/13/25 112 Blood culture [[id number]] Collected: 05/13/25 1108 Specimen: Blood, Venous Updated: 05/13/25 1122 Urine Culture Urine, Clean Catch Midstream [[id number]] Collected: 05/12/25 1301 Specimen: Urine, Clean Catch [...] daily and draw peak and trough around 3rddose. Pharmacy Dosing Service to follow serum concentrations and adjust as needed based on the patient's clinical status. Thank you for consulting. Joie Garcia RPH T [facility]06-29-2025 History of Present illness Narrative* Joie Garcia RPH - 05/13/2025 2:49 PM EDT Adjusted dose of Zosyn to 3.375grams every 8 hours for diagnosis of sepsis and crcl 29.6ml/min Joie Gacria PharmD [facility] documented in this encounterCommunity [facility] Physician Emergency department Note* Jack Milligan DO - 05/13/2025 11:24 AM EDTAssociated Order(s): Critical Care Images from the original note were not included. [facility] Pt Name: Cuca Dee [...] patient is significantly different today. She is weakand drowsy, reports shortness of breath and was requiring supplemental oxygen. She denies chest pain. No fever. Patient is dressed in the same clothing and wearing a soiled brief. She lives with her d aughter and grandson but they don't currently have transportation. She has history of HTN, HLD, previous stroke, CKD, DM, chronic back pain, s/p TAVR, CAD post PCI 2022, severe post TAVR, NHP post shunt, recently admitted for staph bacteremia in February Past Medical History: Past Medical History: Diagnosis Date Anemia Arthritis Asthma very mild, no inhaler use Cataract Dental disease Depression Diabetes mellitus ([facility] Diabetes mellitus type 2, controlled ([facility]) Encephalitis Foot fracture, left GERD (gastroesophageal reflux disease) Heart murmur HLD (hyperlipidemia) Hypertension Incontinence Injury of back Insulin dependent diabetes mellitus Kidney failure STAGE 4 Lumbar spondylolysis Murmur Obesity CHELSEA (obstructive sleep apnea) no machine Peptic ulceration Peripheral vascular disease Shortness of breath Stroke ([facility]) 02/27/2024 TIA (transient ischemic attack) Upper respiratory infection UTI (urinary tract infection) Visual impairment Wears dentures Past Surgical History: Past Surgical History: Procedure Laterality Date BREAST BIOPSY Right 03/01/2023 ULT BIOPSY CATARACT EXTRACTION SECTION SECTION 03/14/1974 EGD N/A 10/17/2019 Performed by Sarai Bell DO at [facility] H-PERCUTANEOUS CORONARY INTERVENTION HYSTEROSCOPY DILATION CURETTAGE MYOSURE N/A 01/29/2021 Performed by Jv Briones MD at [facility] INJECTION BLOCK EPIDURAL CAUDAL STEROID N/A 08/14/2022 Performed by Arnulfo Morgan MD at [facility] INJECTION BLOCK EPIDURAL CAUDAL STEROID N/A 06/06/2021 Performed by Arnulfo Morgan MD at [facility] INJECTION BLOCK EPIDURAL CAUDAL STEROID N/A 04/25/2021 Performed by Arnulfo Morgan MD at [facility] INJECTION CAUDAL EPIDURAL WITH CATHETER, STEROID N/A 05/03/2020 Performed by Arnulfo Morgan MD at [facility] INJECTION CAUDAL EPIDURAL WITH CATHETER, STEROID N/A 11/24/2019 Performed by Arnulfo Morgan MD at [facility] INJECTION CAUDAL EPIDURAL WITH CATHETER, STEROID N/A 04/21/2019 Performed by Arnulfo Morgan MD at [facility] MEDIAL [facility]CH NERVE BLOCK Bilateral L 4/5, 5/1 Bilateral 08/18/2019 Performed by Arnulfo Morgan MD at [facility] INJECTION MEDIAL BRANCH NERVE BLOCK Bilateral L 4/5, 5/1 Bilateral 06/23/2019 Performed by Arnulfo Morgan MD at [facility] INJECTION STEROID EPI 1 WITH SEDATION Right L 4, 5 NR Right 03/17/2019 Performed by Arnulfo Morgan MD at [facility] INJECTION STEROID EPI 1 WITH SEDATION: right L45 nroot Right 08/15/2018 Performed by Arnulfo Morgan MD at [facility] LEFT L4, AND 5 NERVE ROOT INJECTION 2 OF 2 Left 07/22/2018 Performed by Arnulfo Morgan MD at [facility] LEFT L4, AND L5 NERVE ROOT 1 OF 2 Left 07/04/2018 Performed by Arnulfo Morgan MD at [facility] SHUNT INSERTION TONSILLECTOMY AGE 4 Transcutaneous aortic valve replacement/Transfemoral/Kwan N/A 08/17/2023 Performed by Chava Norris MD at [facility] Valvuloplasty aortic N/A 06/03/2023 Performed by Chava Norris MD at [facility] Family History: Family [...] 0 min Stress: Stress Concern Present (10/28/2024) [place] [employer] - Occupational Stress Questionnaire Feeling of Stress : To some extent Social Connections: Moderately Integrated (10/28/2024) Social Connection and Isolation Panel [NHANES] Frequency of Communication with Friends and Family: Never Frequency of Social Gatherings with Friends and Family: More than three times a week Attends [employer] Services: More than 4 times [...] No fever. Imaging of the right hip showsa minimally displaced inferior trochanteric fracture which could be the source of her pain. Hypoxiais new today. Patient was not appear that she has been cared for home. She lives with her daughter but she arrived wearing the same clothes as yesterday and in a soiled brief. It does not appear thatshe was receiving any care at home. Because [...] does not meet septic shock criteria at thistime [employer] Antibiotics given: zosyn and vancomycin [...] provider(s): 11:[address] Martins production worker for Dr Joiner, after discussion with the patient, she was a patient of Deja Stinson who had previously worked in Dr joiner's office. Patient reports she was planning on seeing Dr. Diane arias that valve is no longer working there [...] Course: ED Course as of 05/15/25 1410 Concepcion May 13, 2025 1049 ECG notable for sinus tachycardia. LBBB. [SURINDER] ED Course User Index [SURINDER] Jack Milligan, Clinical Impressions as of 05/15/25 1410 Acute respiratory failure with hypoxia ([facility]) Nondisplaced fracture of lesser trochanter of right femur, initial encounter for closed fracture ([facility]) Generalized weakness Closed fracture of right hip, initial encounter ([facility]) Hypoxia Type 2 diabetes mellitus with hypoglycemia without coma, with long-term current use of insulin ([facility]) . ED Disposition ED Disposition Admit Date/Time Concepcion May 13, 2025 1:37 PM Comment At this time, the patient has objective evidence of an acute process that will likely require hospitalization for greater than 2 midnights. The patient will be admitted. Medications Prescribed this Visit This print group is not available in inpatient encounters. Please contact a geographic information systems manager. Shared/Split Visit 11:24 EDT Jazmine Huber ([email or web address]), scribed for and in the presence of: Dr. Heri Milligan who performed the aboveservice. IDr. Milligan personally performed a [id number] diagnostic evaluation on this patient. I personallymade and approved the management plan for this patient and take responsibility for the patient management. Additional Notes/Findings: Cuca Dee is a 79 y.o. female presenting to the ED for chief complaint of back pain. Pt states she is experiencing pain in her right hip, is currently on room air butis not usually on oxygen at home. Exam [...] 05/13/25 2121 Jack Milligan DO 05/14/25 2254 [facility] Emergency department Note* Jack Milligan DO - 05/13/2025 11:24 AM EDTAssociated Order(s): Critical Care Images from the original note were not included. [facility] Pt Name: Cuca Dee [...] patient is significantly different today. She is weakand drowsy, reports shortness of breath and was requiring supplemental oxygen. She denies chest pain. No fever. Patient is dressed in the same clothing and wearing a soiled brief. She lives with her d luzhter and grandson but they don't currently have transportation. She has history of HTN, HLD, previous stroke, CKD, DM, chronic back pain, s/p TAVR, CAD post PCI 2022, severe post TAVR, NHP post shunt, recently admitted for staph bacteremia in February Past Medical History: Past Medical History: Diagnosis Date Anemia Arthritis Asthma very mild, no inhaler use Cataract Dental disease Depression Diabetes mellitus ([facility] Diabetes mellitus type 2, controlled ([facility]) Encephalitis Foot fracture, left GERD (gastroesophageal reflux disease) Heart murmur HLD (hyperlipidemia) Hypertension Incontinence Injury of back Insulin dependent diabetes mellitus Kidney failure STAGE 4 Lumbar spondylolysis Murmur Obesity CHELSEA (obstructive sleep apnea) no machine Peptic ulceration Peripheral vascular disease Shortness of breath Stroke ([facility]) 02/27/2024 TIA (transient ischemic attack) Upper respiratory infection UTI (urinary tract infection) Visual impairment Wears dentures Past Surgical History: Past Surgical History: Procedure Laterality Date BREAST BIOPSY Right 03/01/2023 ULT BIOPSY CATARACT EXTRACTION SECTION SECTION 03/14/1974 EGD N/A 10/17/2019 Performed by Sarai Bell DO at [facility] H-PERCUTANEOUS CORONARY INTERVENTION HYSTEROSCOPY DILATION CURETTAGE MYOSURE N/A 01/29/2021 Performed by Jv Briones MD at [facility] INJECTION BLOCK EPIDURAL CAUDAL STEROID N/A 08/14/2022 Performed by Arnulfo Morgan MD at [facility] INJECTION BLOCK EPIDURAL CAUDAL STEROID N/A 06/06/2021 Performed by Arnulfo Morgan MD at [facility] INJECTION BLOCK EPIDURAL CAUDAL STEROID N/A 04/25/2021 Performed by Arnulfo Morgan MD at [facility] INJECTION CAUDAL EPIDURAL WITH CATHETER, STEROID N/A 05/03/2020 Performed by Arnulfo Morgan MD at [facility] INJECTION CAUDAL EPIDURAL WITH CATHETER, STEROID N/A 11/24/2019 Performed by Arnulfo Morgan MD at [facility] INJECTION CAUDAL EPIDURAL WITH CATHETER, STEROID N/A 04/21/2019 Performed by Arnulfo Morgan MD at [facility] INJECTION MEDIAL BRANCH NERVE BLOCK Bilateral L 4/5, 5/1 Bilateral 08/18/2019 Performed by Arnulfo Morgan MD at [facility] INJECTION MEDIAL BRANCH NERVE BLOCK Bilateral L 4/5, 5/1 Bilateral 06/23/2019 Performed by Arnulfo Morgan MD at [facility] INJECTION STEROID EPI 1 WITH SEDATION Right L 4, 5 NR Right 03/17/2019 Performed by Arnulfo Morgan MD at [facility] INJECTION STEROID EPI 1 WITH SEDATION: right L45 nroot Right 08/15/2018 Performed by Arnulfo Morgan MD at [facility] LEFT L4, AND 5 NERVE ROOT INJECTION 2 OF 2 Left 07/22/2018 Performed by Arnulfo Morgan MD at [facility] LEFT L4, AND L5 NERVE ROOT 1 OF 2 Left 07/04/2018 Performed by Arnulfo Morgan MD [facility] [facility] INSERTION TONSILLECTOMY AGE 4 Transcutaneous aortic valve replacement/Transfemoral/Kwan N/A 08/17/2023 Performed by Chava Norris MD at [facility] Valvuloplasty aortic N/A 06/03/2023 Performed by Chava Norris MD at [facility] Family History: Family [...] 0 min Stress: Stress Concern Present (10/28/2024) [place] [facility] [employer] - Occupational Stress Questionnaire Feeling of Stress : To some extent Social Connections: Moderately Integrated (10/28/2024) Social Connection and Isolation Panel [NHANES] Frequency of Communication with Friends and Family: Never Frequency of Social Gatherings with Friends and Family: More than three times a week Attends Uatsdin Services: More than 4 times [...] No fever. Imaging of the right hip showsa minimally displaced inferior trochanteric fracture which could be the source of her pain. Hypoxiais new today. Patient was not appear that she has been cared for home. She lives with her daughter but she arrived wearing the same clothes as yesterday and in a soiled brief. It does not appear thatshe was receiving any care at home. Because [...] does not meet septic shock criteria at thistime [facility] Antibiotics given: zosyn and vancomycin [...] provider(s): 11:[address] Martins production worker for Dr Joiner, after discussion with the patient, she was a patient of Deja Stinson who had previously worked in Dr joiner's office. Patient reports she was planning on seeing Dr. Diane arias that valve is no longer working there [...] 05/15/25 1410 Acute respiratory failure with hypoxia ([facility]) Nondisplaced fracture of lesser trochanter of right femur, initial encounter for closed fracture ([facility]) Generalized weakness Closed fracture of right hip, initial encounter ([facility]) Hypoxia Type 2 diabetes mellitus with hypoglycemia without coma, with long-term current use of insulin ([facility]) . ED Disposition ED Disposition Admit Date/Time Sun May 13, 2025 1:37 PM Comment At this time, the patient has objective evidence of an acute process that will likely require hospitalization for greater than 2 midnights. The patient will be admitted. Medications Prescribed this Visit This print group is not available in inpatient encounters. Please contact a geographic information systems manager. Shared/Split Visit 11:24 EDT Jazmine Huber (scribe), scribed for and in the presence of: Dr. Heri Milligan who performed the aboveservice. IDr. Milligan personally performed a [id number] diagnostic evaluation on this patient. I personallymade and approved the management plan for this patient and take responsibility for the patient management. Additional Notes/Findings: Cuca Dee is a 79 y.o. female presenting to the ED for chief complaint of back pain. Pt states she is experiencing pain in her right hip, is currently on room air butis not usually on oxygen at home. Exam [...] are mis-transcribed. Jazmine Jimenez 05/13/25 1128 Jazmine Bustillo, ALICE-SEWER CONNECTOR 05/13/25 1200 Jazmine Bustillo, BRUSH WORKER-SEWER CONNECTOR 05/13/25 1255 Jazmine Bustillo, BRUSH WORKER-SEWER CONNECTOR 05/13/25 1305 Jazmine Bustillo, BRUSH WORKER-SEWER CONNECTOR 05/13/25 1341 KAIDEN Phillips 05/13/251 Jack Milligan DO 05/14/25 2254 documented in this encounterCommunity [facility] Center06-29-[facility]25 Note Procedure: Chest x-ray performed Number of views:1 History:Shortness of breath Comparison:04/28/2025 Findings: The heart and lungs show no acute findings, and the mediastinum and stanley are grossly negative . Tube overlying right chest stable. Impression: 1. No acute change. Finalized by Berry Wyman MD on 05/13/2025 11:01 [id number] Note Division of Infectious Diseases - Outpatient Clinic Note Patient name: [...] previously underwent a TAVR and has a NON DESTRUCTIVE TESTER shunt for NPH. She presented to the [...] GERD (gastroesophageal reflux disease) Hypertension Ischemic stroke ([facility]) 02/2024 seen at [facility] NPH (normal pressure hydrocephalus) ([facility]) PVD (peripheral vascular disease) Sleep apnea Past [...] Resource Strain: Medium Risk (10/28/2024) Received from N(i)² Overall Financial Resource Strain (CARDIA) Difficulty of Paying Living Expenses: Somewhat hard Food Insecurity: No Food Insecurity (04/04/2025) Received from [employer] [facility] [employer] Hunger Screening Within the past 12 months we worried whether our food would run out before we got money to buy more.: Never True Within the past 12 months the food we bought just didn't last and we didn't have money to get more.: Never True Transportation Needs: No Transportation Needs (03/16/2025) Received from [employer] [facility] [employer] PRAPARE - Transportation Lack of Transportation (Medical): No Lack of Transportation (Non-Medical): No Physical Activity: Inactive (10/28/2024) Received from N(i)² Exercise Vital Sign Days of Exercise per Week: 0 days Minutes of Exercise per Session: 0 min Stress: Stress Concern Present (10/28/2024) Received from N(i)² [place] [facility] [employer] - Occupational Stress Questionnaire Feeling of Stress : To some extent Social Connections: Moderately Integrated (10/28/2024) Received from N(i)² Social Connection and Isolation Panel [NHANES] Frequency of Communication with Friends and Family: Never Frequency of Social Gatherings with Friends and Family: More than three times a week Attends Uatsdin Services: More than 4 times [...] on file Housing Stability: (more content not included)...[facility]05-21-2025 History of Present illness Narrative* Pam Stinson APRN-SEWER CONNECTOR - 04/04/2025 9:00 AM EDT Images from the original note were not included. [address] [place] [id number] SUBJECTIVE: Patient ID: Cuca Dee is [...] home. Patient and daughter have discussed possible halfway placement as well but this is notcost effective. Today, she relates she just finished [...] The current treatment provides significant improvement. There areno compliance problems. Identifiable causes of hypertension include [...] has type 2 diabetes mellitus. Her disease coursehas been improving. There are no hypoglycemic associated symptoms. Associated symptoms include weakness. Pertinent negatives for diabetes include no chest pain. There are no hypoglycemic complications. Symptoms are stable. There are no diabetic complications. Risk factors for coronary artery disease include dyslipidemia, diabetes mellitus, hypertension, obesity and post- menopausal. Current diabetic treatment includes oral agent (monotherapy), [...] 10/17/2019 Performed by Sarai Bell DO at [facility] H-PERCUTANEOUS CORONARY INTERVENTION HYSTEROSCOPY DILATION CURETTAGE MYOSURE N/A 01/29/2021 Performed by Jv Briones MD at [facility] INJECTION BLOCK EPIDURAL CAUDAL STEROID N/A 08/14/2022 Performed by Arnulfo Morgan MD at [facility] INJECTION BLOCK EPIDURAL CAUDAL STEROID N/A 06/06/2021 Performed by Arnulfo Morgan MD at [facility] INJECTION BLOCK EPIDURAL CAUDAL STEROID N/A 04/25/2021 Performed by Arnulfo Morgan MD at [facility] INJECTION CAUDAL EPIDURAL WITH CATHETER, STEROID N/A 05/03/2020 Performed by Arnulfo Morgan MD at [facility] INJE[facility] CAUDAL EPIDURAL WITH CATHETER, STEROID N/A 11/24/2019 Performed by Arnulfo Morgan MD at [facility] INJECTION CAUDAL EPIDURAL WITH CATHETER, STEROID N/A 04/21/2019 Performed by Arnulfo Morgan MD at [facility] MED[facility] BRANCH NERVE BLOCK Bilateral L 4/5, 5/1 Bilateral 08/18/2019 Performed by Arnulfo Morgan MD at [facility] INJECTION MEDIAL BRANCH NERVE BLOCK Bilateral L 4/5, 5/1 Bilateral 06/23/2019 Performed by Arnulfo Morgan MD at [facility] INJECTION STEROID EPI 1 WITH SEDATION Right L 4, 5 NR Right 03/17/2019 Performed by Arnulfo Morgan MD at [facility] INJECTION STEROID EPI 1 WITH SEDATION: right L45 nroot Right 08/15/2018 Performed by Arnulfo Morgan MD at [facility] LEFT L4, AND 5 NERVE ROOT INJECTION 2 OF 2 Left 07/22/2018 Performed by Arnulfo Morgan MD at [facility] LEFT L4, AND L5 NERVE ROOT 1 OF 2 Left 07/04/2018 Performed by Arnulfo Morgan MD at [facility] SHUNT INSERTION TONSILLECTOMY AGE 4 Transcutaneous aortic valve replacement/Transfemoral/Kwan N/A 08/17/2023 Performed by Chava Norris MD at [facility] Valvuloplasty aortic N/A 06/03/2023 Performed by Chava Norris MD at [facility] Past Medical History: Diagnosis Date Anemia Arthritis Asthma very mild, no inhaler use Cataract Dental disease Depression Diabetes mellitus ([facility] Diabetes mellitus type 2, controlled ([facility]) Encephalitis Foot fracture, left GERD (gastroesophageal reflux disease) Heart murmur HLD (hyperlipidemia) Hypertension Incontinence Injury of back Insulin dependent diabetes mellitus Kidney failure STAGE 4 Lumbar spondylolysis Murmur Obesity CHELSEA (obstructive sleep apnea) no machine Peptic ulceration Peripheral vascular disease Shortness of breath Stroke ([facility]) 02/27/2024 TIA (transient ischemic attack) Upper respiratory [...] Type 2 DM -Managed by endocrine in [place], Dr. Majano. She believes her A1c is [...] Heart Failure Severe aortic stenosis history, NSTEMI 11, TAVR 2022 Continue plan of care per [...] KAIDEN Werner 04/04/25 1537 documented in this encounterCommunity [facility] Medical Center05-20-2025 History of Present illness Narrative* Fátima Grajeda RN - 04/03/2025 8:00 AM EDT Patient is here for tentative last dose [...] applied. Patient's daughter states patient sees ID todayand they will ask if patient will need one more dose of medication due to missing dose on Wednesday r/t nurse not being able to obtain IV access. [facility] in care of her daughter. documented in this encounterCommunity Regional Medical Center05-18-2025 History of Present illness Narrative* Prosper Loyd RN - 04/01/2025 8:00 AM EDT Pt here for IV daptomycin. After multiple IV attempts. Unable to obtain IV access. Daughter states pt is not drinking much fluids. Encouraged to hydrate and will re attempt for IV daptomycin as scheduled on Wednesday. Pt and daughter agree and v/u. documented in this encounterCommunity Regional Medical Center05-16-2025 History of Present illness Narrative* Abeba Monk RN - 03/30/2025 8:00 AM EDT Pt arrived in her w/c with her daughter. PIV working well. Pt c/o nausea which subsided with drinking Starry. Daptomycin infused w/o difficulty. PIV removed afterwards. Pt and daughter left to returnSay. documented in this encounterCommunity Regional Medical Center05-14-2025 History of Present illness Narrative* Prosper Loyd RN - 03/28/2025 8:30 AM EDT Pt here for IV daptomycin as scheduled. Tolerating infusions. Pt pulled out picc line yesterday. PIV initiated after 3 attempts. Brisk blood return verified. Flushes with ease. Daptomycin started andinfused over 30 minutes without incident. Line flushed and saline locked. Pt requests to leave IV in for infusion Wednesday. IV secured and covered. Instructed not to unwrap or pull at IV. Dc'd in stable condition with daughter. documented in this encounterCommunity Regional Medical Center05-12-2025 History of Present illness Narrative* Mary Mohan RN - 03/26/2025 9:00 AM EDT The patient is here today for Daptomycin She comes in with walking with a Rolator PICC line in place, brisk blood return noted Daptomycin started and completed over 30 min PICC line dressing change completed Patient tolerated well Patient discharged in stable condition to daughter documented in this encounterCommunity Regional Medical Center05-10-2025 History of Present illness Narrative* Mary Mohan RN - 03/24/2025 8:00 AM EDT The patient is here today for Daptomycin She comes in with walking with a Rolator PICC line in place, brisk blood return noted Lab draw completed from PICC Daptomycin started and completed over 30 min PICC line dressing change completed Patient tolerated well Patient discharged in stable condition to daughter documented in this encounterCommunity Regional Medical Center05-08-2025 History of Present illness Narrative* Chloe Domingo RN - 03/22/2025 8:30 AM EDT Patient accompanied for IV Daptomycin. Reports she has been tolerated prior infusions well without issues or concerns. PICC line flushes easily with brisk blood return. Daptomycin infused over 30 minutes. Picc line flushes and saline locked. Dressing noted to be clean dry and intact (changed at prior infusion 03/20/25) Patient reports she has calendar and verbalizes understanding of future appointments. documented in this encounterCommunity Regional Medical Center05-06-2025 History of Present illness Narrative* MANAS Mendoza - 03/20/2025 9:21 AM EDT Consult received on ambulatory infusion patient to assist with transportation resources for IV AB infusion. Chart reviewed. Rat Farmer met with pleasant pt & her daughter Ileana, introduced self & role. Ileana informs [employer] is not able to provide transportation on Wednesday. Ileana is unexpectedly without a vehicle, her son does not drive, pt said she's unsure if her brother would assistas she's not spoken with him for a while. They have a friend who assisted with transportation todayhowever her time is limited; neighbors are not an option. Rat Farmer notes pt has [place] Medicare, informed pt & daughter that some plans offer medical appointment transportation. [facility]; teletypewriter operator offered Access to Care phone number for [employer], Ileana informs she has number in phone. Encouraged Ileana to call [employer] to try to get on schedule. Pt does not endorse food insecurity, is receiving small amount of SNAP. Pt does not have Medicaid, pt & daughter relay pt had Medicaid but was cut in november due possibly somethi ng about utility bills. Rat Farmer encouraged pt/Ileana to re-apply for Medicaid. Pt has medical bills; educated on [facility] [employer] & provided [facility] [employer] name/contact information to reach out for assistance. Educated on [employer] Services, how to go about to requestin home assessment; PASSPORT information sheet provided. Provided [employer] Wrong [employer] info eet for area resources; pt declined [employer] stating she has booklet. Ileanacontacting [employer] Medicare transport services at this time to arrange transportation. Provided writers contact information, teletypewriter operator available if needed. Message to Ambulatory RN CN at PCP office requesting follow up with patient. documented in this encounterK[facility] DaytonS[facility] [id number] History of Present illness Narrative* Rosario Strong RN - 03/20/2025 8:30 AM EDT Patient is here for IV daptomycin. She has been tolerating it okay. PICC line flushes well but onlysmall amount of blood return. Labs drawn peripherally to right forearm on second attempt. Daptomycin infused over 30 minutes. Picc line flushes and saline locked. Dressing changed under sterile technique. Patient given calendar, verbalized understanding of future appointments and her daughter states she has transportation lined up. documented in this encounterKettering Health DaytonS[facility]aks [id number] History of Present illness Narrative* Fátima Grajeda RN - 03/14/2025 9:00 AM EDT Patient is here for daptomycin infusion today. She has been receiving medication and tolerating well. PICC to right upper arm clean, dry and intact except for bottom inside corner noted to be rollingslightly. Tegaderm reinforced. PICC with small amount of [...] daughter, to private vehicle. documented in this encounterCommunity Regional Medical Center04-28-2025 History of Present illness Narrative* Mary Mohan RN - 03/12/2025 8:00 AM EDT The patient is here today for Daptomycin She comes in with walking with a Rolator PICC line in place, brisk blood return noted Lab draw completed from PICC Daptomycin started and completed over 30 min PICC line dressing change completed Patient tolerated well Patient discharged in stable condition to daughter documented in this encounterCommunity Regional Medical Center04-24-2025 Miscellaneous Notes* Telephone Encounter - Matilde Anderson - 03/08/2025 12:28 PM EDT Called to schedule new pt appt and was informed that the pt was already seeing nephrology. documented in this encounterCommunity Regional Medical Center04-24-2025 Telephone encounter Note* Telephone Encounter - Matilde Anderson - 03/08/2025 12:28 PM EDT Called to schedule new pt appt and was informed that the pt was already seeing nephrology. [facility]04-06-2025 Miscellaneous Notes* Telephone Encounter - Kimberley Escudero - 02/18/2025 12:29 PM EDT Contract: [phone] [facility] [phone] re critical lab Secure chat Rosario documented in this encounterCommunity Regional Medical Center04-06-2025 Telephone encounter Note* Telephone Encounter - Kimberley Escudero - 02/18/2025 12:29 PM EDT Contract: [phone] [facility] [phone] re critical lab Secure chat Rosario [facility]03-13-2025 History of Present illness Narrative* Casimiro Muñoz MD - 01/25/2025 2:15 PM EDT Images from the original note were not included. [facility] 01/25/25 Cuca Dee is a 79 y.o. year old female seen today in the oncology clinic. Chief Complaint Patient presents with Follow-up History of Present Illness: Mrs. Dee is a 79 y.o. female with history of aortic valve stenosis, she had PCI earlier in the year at [facility] for coronary disease. during the cardiac [...] mammary carcinoma, grade 2, ER strongly positive CO moderately positive and [id number]. There was also suspicious spine lesion, MRI [...] Cataract Dental disease Depression Diabetes mellitus ([facility] Diabetes mellitus type 2, controlled ([facility]) Encephalitis Foot fracture, left GERD (gastroesophageal reflux disease) Heart murmur HLD (hyperlipidemia) Hypertension Incontinence Injury of back Insulin dependent diabetes mellitus Kidney failure STAGE 4 Lumbar spondylolysis Murmur Obesity CHELSEA (obstructive sleep apnea) no machine Peptic ulceration Peripheral vascular disease ([facility] Shortness of breath Stroke ([facility]) 02/27/2024 TIA (transient ischemic attack) Upper respiratory infection UTI (urinary tract infection) Visual impairment Wears dentures Past Surgical History: Procedure Laterality Date BREAST BIOPSY Right 03/01/2023 ULT BIOPSY CATARACT EXTRACTION SECTION SECTION 03/14/1974 EGD N/A 10/17/2019 Performed by Sarai Bell DO at [facility] H-PERCUTANEOUS CORONARY INTERVENTION HYSTEROSCOPY DILATION CURETTAGE MYOSURE N/A 01/29/2021 Performed by Jv Briones MD at [facility] INJECTION BLOCK EPIDURAL CAUDAL STEROID N/A 08/14/2022 Performed by Arnulfo Morgan MD at [facility] INJECTION BLOCK EPIDURAL CAUDAL STEROID N/A 06/06/2021 Performed by Arnulfo Morgan MD at [facility] INJECTION BLOCK EPIDURAL CAUDAL STEROID N/A 04/25/2021 Performed by Arnulfo Morgan MD at [facility] INJECTION CAUDAL EPIDURAL WITH CATHETER, STEROID N/A 05/03/2020 Performed by Arnulfo Morgan MD at [facility] INJECTION CAUDAL EPIDURAL WITH CATHETER, STEROID N/A 11/24/2019 Performed by Arnulfo Morgan MD at [facility] INJECTION CAUDAL EPIDURAL WITH CATHETER, STEROID N/A 04/21/2019 Performed by Arnulfo Morgan MD at [facility] MEDIAL BRANCH NERVE BLOCK Bilateral L 4/5, 5/1 Bilateral 08/18/2019 Performed by Arnulfo Morgan MD at [facility] MEDIAL BRANCH NERVE BLOCK Bilateral L 4/5, 5/1 Bilateral 06/23/2019 Performed by Arnulfo Morgan MD at [facility] STEROID EPI 1 WITH SEDATION Right L 4, 5 NR Right 03/17/2019 Performed by Arnulfo Morgan MD at [facility] INJECTION STEROID EPI 1 WITH SEDATION: right L45 nroot Right 08/15/2018 Performed by Arnulfo Morgan MD at [facility] LEFT L4, AND 5 NERVE ROOT INJECTION 2 OF 2 Left 07/22/2018 Performed by Arnulfo Morgan MD at [facility] LEFT L4, AND L5 NERVE ROOT 1 OF 2 Left 07/04/2018 Performed by Arnulfo Morgan MD at [facility] SHUNT INSERTION TONSILLECTOMY AGE 4 Transcutaneous aortic valve replacement/Transfemoral/Kwan N/A 08/17/2023 Performed by Chava Norris MD at [facility] Valvuloplasty aortic N/A 06/03/2023 Performed by Chava Norris MD at [facility] Family History Problem [...] 0 min Stress: Stress Concern Present (10/28/2024) [place] [employer] - Occupational Stress Questionnaire Feeling of Stress : To some extent Social Connections: Moderately Integrated (10/28/2024) Social Connection and Isolation Panel [NHANES] Frequency of Communication with Friends and Family: Never Frequency of Social Gatherings with Friends and Family: More than three times a week Attends Uatsdin Services: More than 4 times [...] hyperlipidemia associated with type 2 diabetes mellitus ([facility]) Dose: 40 mg Signed by: KAIDEN Santana 40 mg, oral, Nightly Commonly known as: LIPITOR blood-glucose meter misc Quantity: 1 each Refills: 0 Doctor's comments: Whatever covered by insurance For diagnoses: Controlled type 2 diabetes mellitus with diabetic nephropathy, without long-term current use of insulin ([facility]) Signed by: KAIDEN Santana Monitor blood sugars four times daily and as needed DEXCOM G7 MOLDING ASSOCIATE misc Refills: 0 Generic drug: blood-glucose meter,continuous DEXCOM G7 SENSOR device Refills: 0 Generic drug: blood-glucose sensor furosemide 20 mg tablet Refills: 0 Dose: 20 mg Commonly known as: LASIX gabapentin 300 mg capsule Quantity: 180 capsule Refills: 1 Doctor's comments: 90 Day Supply with one refill For diagnoses: 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 mellitus ([facility]) Dose: 300 mg Signed by: KAIDEN Santana [...] nephropathy, without long-term current use of insulin ([facility]) Signed by: KAIDEN Santana Monitor blood sugars [...] o'clock position close to the nipple, the lesionseems to be stable to me. There is [...] to ensure the accuracy of this automated bench press operator, some errors in bench press operator may have occurred. CC: Patient Care Team: KAIDEN Werner as PCP - General (Family Medicine) John Quiles MD (Nephrology) KAIDEN Hsu as Nurse Practitioner (Pulmonary Medicine) Madison Ye MD as Referring Physician (Endocrinology, Diabetes & Metabolism) Casimiro Muñoz MD as Consulting Physician (Hematology) PCP:Pam Stinson Referring MD: Pam Stinson AP* documented in this encounterCommunity Regional Medical Center03-13-2025 Instructions* Patient Instructions* Casimiro Muñoz MD - 01/25/2025 2:15 PM EDT PET scan now. Bilateral screening mammogram. F/u in 3 months, CBC, CMP, CA 15-3, CA 27.29. documented in this encounterCommunity Regional Medical Center03-10-2025 History of Present illness Narrative* Pam Stinson, ALICE-SEWER CONNECTOR - 01/22/2025 1:40 PM EDT Images from the original note were not included. [address] [facility] [id number] SUBJECTIVE: Patient ID: Cuca Dee [...] 10/17/2019 Performed by Sarai Bell DO at [facility] H-PERCUTANEOUS CORONARY INTERVENTION HYSTEROSCOPY DILATION CURETTAGE MYOSURE N/A 01/29/2021 Performed by Jv Briones MD at [facility] INJECTION BLOCK EPIDURAL CAUDAL STEROID N/A 08/14/2022 Performed by Arnulfo Morgan MD at [facility] INJECTION BLOCK EPIDURAL CAUDAL STEROID N/A 06/06/2021 Performed by Arnulfo Morgan MD at [facility] INJECTION BLOCK EPIDURAL CAUDAL STEROID N/A 04/25/2021 Performed by Arnulfo Morgan MD at [facility] INJECTION CAUDAL EPIDURAL WITH CATHETER, STEROID N/A 05/03/2020 Performed by Arnulfo Morgan MD at [facility] INJECTION CAUDAL EPIDURAL WITH CATHETER, STEROID N/A 11/24/2019 Performed by Arnulfo Morgan MD at [facility] INJECTION CAUDAL EPIDURAL WITH CATHETER, STEROID N/A 04/21/2019 Performed by Arnulfo Morgan MD at [facility] INJECTION MEDIAL BRANCH NERVE BLOCK Bilateral L 4/5, 5/1 Bilateral 08/18/2019 Performed by Arnulfo Morgan MD at [facility] INJECTION MEDIAL BRANCH NERVE BLOCK Bilateral L 4/5, 5/1 Bilateral 06/23/2019 Performed by Arnulfo Morgan MD at [facility] STEROID EPI 1 WITH SEDATION Right L 4, 5 NR Right 03/17/2019 Performed by Arnulfo Morgan MD at [facility] INJECTION STEROID EPI 1 WITH SEDATION: right L45 nroot Right 08/15/2018 Performed by Arnulfo Morgan MD at [facility] LEFT L4, AND 5 NERVE ROOT INJECTION 2 OF 2 Left 07/22/2018 Performed by Arnulfo Morgan MD at [facility] LEFT L4, AND L5 NERVE ROOT 1 OF 2 Left 07/04/2018 Performed by Arnulfo Morgan MD at [facility] SHUNT INSERTION TONSILLECTOMY AGE 4 Transcutaneous aortic valve replacement/Transfemoral/Kwan N/A 08/17/2023 Performed by Chava Norris MD at [facility] Valvuloplasty aortic N/A 06/03/2023 Performed by Chava Norris MD at [facility] Past Medical History: Diagnosis Date Anemia Arthritis Asthma very mild, no inhaler use Cataract Dental disease Depression Diabetes mellitus ([facility]) Diabetes mellitus type 2, controlled ([facility]) Encephalitis Foot fracture, left GERD (gastroesophageal reflux disease) Heart murmur HLD (hyperlipidemia) Hypertension Incontinence Injury of back Insulin dependent diabetes mellitus Kidney failure STAGE 4 Lumbar spondylolysis Murmur Obesity CHELSEA (obstructive sleep apnea) no machine Peptic ulceration Peripheral vascular disease ([facility]) Shortness of breath Stroke ([facility]) 02/27/2024 TIA (transient ischemic attack) Upper respiratory [...] the following intervention(s) were applied: encouragement toexercise. Component Latest Ref Rng 01/10/2025 Sodium 134 [...] Moderate episode of recurrent major depressive disorder ([facility]) Stage 3b chronic kidney disease ([facility]) CKD stage 3b Stable Is monitored by [...] KAIDEN Werner 01/22/25 1658 documented in this encounterCommunity [facility] Center03-[facility] Evaluation note* Type Assessment Date assessment Proliferative diabet ic retinopathy of right [...] t eye impression Epiretinal membrane (ERM) of lef t eye: H35.372. Left [facility] Work Phone: 1(751) 461-328403-06-2025 History of Present illness Narrative* Encounter Date Complaint History Of Prese nt Illness AMD The 79 year old female presents for evaluation of AMD in the right and left eyes. Patient states vision stables. Patient Denies any new flashes, floaters, or discomfort. Patient does not use drops at home. [facility] Phys[facility] Work Phone: 1(159) 303-647603-06-2025 Instructions* Date Instruction Additional Infor tabby Impression/Plan [...] 2, without Retinopathy Diabetes, Type 2, wi out Retinopathy Condition: chronic. - Emphasized blood sugar [...] to Macular Edema [facility] Work Phone: 1(497) 106-507001-14-2025 History of Present illness Narrative* KAIDEN Werner - 11/28/2024 2:40 PM EST Images from the original note were not included. [address] [place] [address] SUBJECTIVE: Patient ID: Cuca Dee is a 79 y.o. female. Chief Complaint Patient presents with tcm Dec, Domingo Villatoro Presented to the ER on November 09, 2024 with complaints of generalized fatigue and weakness for several days. Troponin was noted to be elevated.Cardiology consulted. Echocardiogram results showed normal LV and RV systolic function. She did not report chest pain. Was on cook pressure for durationof observation. Followed up outpatient with cardiology on 11/24/24. No new changes. She was noted to have UTI. Was treated with Rocephin and discharged with cephalexin. She has been seen multiple times over the past two months for recurrent UTIs at [place] and [facility] ER. Adult Protective Services was notified at one point for concern patient may be sitting in soiled brief for se days. Patient and daughter state this has not been occurring. Last seen in ER was on 11/19/24 at [facility]. Patient thought she had another [...] were unaware not changing adapter weekly per winder contort operator recommendation may be contributing to reoccurring UTI's. Is Type 2 DM, has upcoming appointment with Dr. Majano, machine castings plasterer next week. The following portions of the patient's history were reviewed and updated as appropriate: allergies, current medications, past family history, past medical history, past social history, past surgicalhistory and problem list. Past Surgical History: Procedure Laterality Date BREAST BIOPSY Right 03/01/2023 ULT BIOPSY CATARACT EXTRACTION SECTION SECTION 03/14/1974 EGD N/A 10/17/2019 Performed by Sarai Bell DO at [facility] H-PERCUTANEOUS CORONARY INTERVENTION HYSTEROSCOPY DILATION CURETTAGE MYOSURE N/A 01/29/2021 Performed by Jv Briones MD at [facility] INJECTION BLOCK EPIDURAL CAUDAL STEROID N/A 08/14/2022 Performed by Arnuflo Morgan MD at [facility] INJECTION BLOCK EPIDURAL CAUDAL STEROID N/A 06/06/2021 Performed by Arnulfo Morgan MD at [facility] INJECTION BLOCK EPIDURAL CAUDAL STEROID N/A 04/25/2021 Performed by Arnulfo Morgan MD at [facility] INJECTION CAUDAL EPIDURAL WITH CATHETER, STEROID N/A 05/03/2020 Performed by Arnulfo Morgan MD at [facility] INJECTION CAUDAL EPIDURAL WITH CATHETER, STEROID N/A 11/24/2019 Performed by Arnulfo Morgan MD at [facility] INJECTION CAUDAL EPIDURAL WITH CATHETER, STEROID N/A 04/21/2019 Performed by Arnulfo Morgan MD at [facility] MEDIAL BRANCH NERVE BLOCK Bilateral L 4/5, 5/1 Bilateral 08/18/2019 Performed by Arnulfo Morgan MD at [facility] MEDIAL BRANCH NERVE BLOCK Bilateral L 4/5, 5/1 Bilateral 06/23/2019 Performed by Arnulfo Morgan MD at [facility] STEROID EPI 1 WITH SEDATION Right L 4, 5 NR Right 03/17/2019 Performed by Arnulfo Morgan MD at [facility] INJECTION STEROID EPI 1 WITH SEDATION: right L45 nroot Right 08/15/2018 Performed by Arnulfo Morgan MD at [facility] LEFT L4, AND 5 NERVE ROOT INJECTION 2 OF 2 Left 07/22/2018 Performed by Arnulfo Morgan MD at [facility] LEFT L4, AND L5 NERVE ROOT 1 OF 2 Left 07/04/2018 Performed by Arnulfo Morgan MD at [facility] SHUNT INSERTION TONSILLECTOMY AGE 4 Transcutaneous aortic valve replacement/Transfemoral/Kwan N/A 08/17/2023 Performed by Chava Norris MD at [facility] Valvuloplasty aortic N/A 06/03/2023 Performed by Chava Norris MD at [facility] Past Medical History: Diagnosis Date Anemia Arthritis Asthma very mild, no inhaler use Cataract Dental disease Depression [facility] Diabetes mellitus type 2, controlled ([facility]) Encephalitis Foot fracture, left GERD (gastroesophageal reflux disease) Heart murmur HLD (hyperlipidemia) Hypertension Incontinence Injury of back Insulin dependent diabetes mellitus Kidney failure STAGE 4 Lumbar spondylolysis Murmur Obesity CHELSEA (obstructive sleep apnea) no machine Peptic ulceration Peripheral vascular disease ([facility]) Shortness of breath Stroke ([facility]) 02/27/2024 TIA (transient ischemic attack) Upper respiratory [...] normal. ASSESSMENT/PLAN: Cuca was seen today for [facility] domingo pacheco. Diagnoses and all orders for this visit: Mixed diabetic hyperlipidemia associated with type 2 diabetes mellitus ([facility]) - atorvastatin (LIPITOR) 40 mg tablet; Take 1 tablet (40 mg total) by mouth nightly. Insomnia, unspecified type - traZODone (DESYREL) 100 mg tablet; TAKE 1 TABLET BY MOUTH EVERY DAY AT NIGHT Elevated troponin level Recurrent UTI Spoke with both patient and daughter at length today regarding frequent ER visits. Multiple trips to both [place] and [facility] ER. Primary complaints is generally for UTIs. [...] KAIDEN Werner 12/05/24 1315 documented in this encounterCommunity [facility] Medical Center01-10-2025 History of Present illness Narrative* Radha Moran MD - 11/24/2024 2:15 PM EST Cuca Dee Date of visit: 11/24/2024 Date of : 1945 Age: 79 y.o. Patient Active Problem List Diagnosis GERD without esophagitis 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 mellitus ([facility]) PVD (peripheral vascular disease) ([facility]) Anemia, chronic disease Lumbar back pain with radiculopathy affecting left lower extremity Disc displacement, lumbar Primary osteoarthritis of both knees Lumbar spondylosis Moderate episode of recurrent major depressive disorder ([facility]) GI bleed Mixed diabetic hyperlipidemia associated with type 2 diabetes mellitus ([facility]) Murmur, cardiac Left bundle branch block Obstructive sleep apnea syndrome Cerebral ventriculomegaly Edema of lower extremity Wears dentures Normal pressure hydrocephalus ([facility]) Coronary artery disease involving [place]k coronary artery of ty[place] heart without angina pectoris Other abnormalities of gait and mobility Essential (primary) hypertension Acute cystitis without hematuria Spinal stenosis of lumbar region with neurogenic claudication SOB (shortness of breath) History of non-ST elevation myocardial infarction (NSTEMI) History of pneumonia Elevated d-dimer Stage 3b chronic kidney disease ([facility]) Malignant neoplasm of upper-outer quadrant of right breast in female, estrogen receptor positive ([facility]) Tremors of nervous system Closed nondisplaced fracture of left pubis with routine healing Acute kidney injury superimposed on CKD ([facility]) Nonrheumatic aortic valve stenosis S/p TAVR (transcatheter aortic valve replacement), 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 ([facility]) Sepsis without acute organ dysfunction ([facility]) Depression, unspecified Difficulty in walking, not elsewhere classified Generalized muscle weakness Hypertensive heart and chronic kidney disease with heart failure and stage 1 through stage 4 chronic kidney disease, or unspecified chronic kidney disease ([facility]) Insomnia, unspecified Limitation of activities due to disability Methicillin resistant Staphylococcus aureus infection as the cause of diseases classified elsewhere Constipation, unspecified Need for assistance with personal care Obesity, unspecified Pneumonia, unspecified organism Primary generalized (osteo)arthritis Unspecified osteoarthritis, unspecified site Type 2 diabetes mellitus with diabetic chronic kidney disease ([facility]) Unspecified asthma, uncomplicated Unspecified Escherichia coli (E. coli) as the cause of diseases classified elsewhere Urinary tract infectious disease Reactive airway disease with acute exacerbation Weakness Lactic acidosis Iron deficiency anemia secondary to inadequate dietary iron intake Hypomagnesemia Acute respiratory failure with hypoxia and hypercapnia ([facility]) COVID-19 virus infection Altered mental status, unspecified altered mental status type Type 2 diabetes mellitus with hypoglycemia without coma ([facility]) Acute cystitis Elevated troponin No Known Allergies [...] mouth nightly. 30 tablet 0 blood-glucose meter mis Monitor blood sugars four times daily and as needed 1 each 0 DEXCOM G7 MOLDING ASSOCIATE [facility] USE DIRECTED TO CONTINUOUSLY MONITOR BLOOD SUGAR [...] and 6 Units in the evening. lancets (Asl Analyticaltouch ultrasoft) misc Monitor blood sugars four times [...] visit. Chief Complaint [facility] ELEV[facility] TROPONIN History of [...] use Cataract Dental disease Depression Diabetes mellitus ([facility]) Diabetes mellitus type 2, controlled ([facility]) Encephalitis Foot fracture, left GERD (gastroesophageal reflux disease) Heart murmur HLD (hyperlipidemia) Hypertension Incontinence Injury of back Insulin dependent diabetes mellitus Kidney failure STAGE 4 Lumbar spondylolysis Murmur Obesity CHELSEA (obstructive sleep apnea) no machine Peptic ulceration Peripheral vascular disease ([facility]) Shortness of breath Stroke ([facility]) 02/27/2024 TIA (transient ischemic attack) Upper respiratory infection UTI (urinary tract infection) Visual impairment Wears dentures No data recorded No data recorded No data recorded Past Surgical History: Procedure Laterality Date BREAST BIOPSY Right 03/01/2023 ULT BIOPSY CATARACT EXTRACTION SECTION SECTION 03/14/1974 EGD N/A 10/17/2019 Performed by Sarai Bell DO at [facility] H-PERCUTANEOUS CORONARY INTERVENTION HYSTEROSCOPY DILATION CURETTAGE MYOSURE N/A 01/29/2021 Performed by Jv Briones MD at [facility] INJECTION BLOCK EPIDURAL CAUDAL STEROID N/A 08/14/2022 Performed by Arnulfo Morgan MD at [facility] INJECTION BLOCK EPIDURAL CAUDAL STEROID N/A 06/06/2021 Performed by Arnulfo Morgan MD at [facility] INJECTION BLOCK EPIDURAL CAUDAL STEROID N/A 04/25/2021 Performed by Arnulfo Morgan MD at [facility] INJECTION CAUDAL EPIDURAL WITH CATHETER, STEROID N/A 05/03/2020 Performed by Arnulfo Morgan MD at [facility] INJECTION CAUDAL EPIDURAL WITH CATHETER, STEROID N/A 11/24/2019 Performed by Arnulfo Morgan MD at [facility] INJECTION CAUDAL EPIDURAL WITH CATHETER, STEROID N/A 04/21/2019 Performed by Arnulfo Morgan MD at [facility] MEDIAL BRANCH NERVE BLOCK Bilateral L 4/5, 5/1 Bilateral 08/18/2019 Performed by Arnulfo Morgan MD at [facility] MEDIAL BRANCH NERVE BLOCK Bilateral L 4/5, 5/1 Bilateral 06/23/2019 Performed by Arnulfo Morgan MD at [facility] INJECTION STEROID EPI 1 WITH SEDATION Right L 4, 5 NR Right 03/17/2019 Performed by Arnulfo Morgan MD at [facility] INJECTION STEROID EPI 1 WITH SEDATION: right L45 nroot Right 08/15/2018 Performed by Arnulfo Morgan MD at [facility] LEFT L4, AND 5 NERVE ROOT INJECTION 2 OF 2 Left 07/22/2018 Performed by Arnulfo Morgan MD at [facility] LEFT L4, AND L5 NERVE ROOT 1 OF 2 Left 07/04/2018 Performed by Arnulfo Morgan MD at [facility] SHUNT INSERTION TONSILLECTOMY AGE 4 Transcutaneous aortic valve replacement/Transfemoral/Kwan N/A 08/17/2023 Performed by Chava Norris MD at [facility] Valvuloplasty aortic N/A 06/03/2023 Performed by Chava Norris MD at [facility] Family History Problem [...] 0 min Stress: Stress Concern Present (10/28/2024) [place] [employer] - Occupational Stress Questionnaire Feeling of Stress : To some extent Social Connections: Moderately Integrated (10/28/2024) Social Connection and Isolation Panel [NHANES] Frequency of Communication with Friends and Family: Never Frequency of Social Gatherings with Friends and Family: More than three times a week Attends [employer] Services: More than 4 times [...] replacement), bioprosthetic 3. Coronary artery disease involving tyonek coronary artery of [place] heart without angina pectoris Recent admit for [...] Werner Referring Physician: KAIDEN Werner [address] [place] [address] documented in this encounterRutland [facility] CenterEasy [facility]ings01-09-2025 Miscellaneous Notes* Telephone Encounter - Jazzmine Vega CMA - 11/23/2024 1:58 PM EST Called patient to remind them to bring their most current copy of their medication list with them to their appt. Patient verbalizes understanding. documented in this encounterCommunity [facility] Medical Center01-09-2025 Telephone encounter Note* Telephone Encounter - Jazzmine Vega CMA - 11/23/2024 1:58 PM EST Called patient to remind them to bring their most current copy of their medication list with them to their appt. Patient verbalizes understanding. [facility]12-30-[facility] Miscellaneous Notes* Telephone Encounter - Yani Martinez - 11/13/2024 5:24 PM EST ----- Message ----- From: Irina Brunner MD Sent: 11/10/2024 7:37 AM EST To: Ppc General Instrumentation Fitter Subject: Post discharge follow-up Patient is seen at [facility]. Starting off. Need follow-up as outpatient within 3 weeks fromdischarge. Thank you * Telephone Encounter - Yani Martinez - 11/13/2024 5:24 PM EST SCHEDULED 11/24/2024 documented in this encounterCommunity Regional Medical Center12-30-2024 Telephone encounter Note* Telephone Encounter - Yani Martinez - 11/13/2024 5:24 PM EST ----- Message ----- From: Irina Brunner MD Sent: 11/10/2024 7:37 AM EST To: Ppc General Instrumentation Fitter Subject: Post discharge follow-up Patient is seen at [facility]. Starting off. Need follow-up as outpatient within 3 weeks fromdischarge. Thank you [facility]12-30-2024 Telephone encounter Note* Telephone Encounter - Yani Martinez - 11/13/2024 5:24 PM EST SCHEDULED 11/24/2024 [facility]12-27-[facility] Miscellaneous Notes* Telephone Encounter - Maddie Givens RN - 11/10/2024 8:54 AM EST [facility] called ODALIS Perkins, to ask if patient discharged with home care, will PCP cover? documented in this encounterCommunity Regional Medical Center12-27-2024 Telephone encounter Note* Telephone Encounter - Maddie Givens RN - 11/10/2024 8:54 AM EST [facility] called ODALIS Perkins, to ask if patient discharged with home care, will PCP cover? [facility] Work Phone: 1(667) 155-795510-23-2024 Miscellaneous Notes* Telephone Encounter - Alice Morrison CMA - 09/06/2024 3:15 PM EDT [facility] called to see if you could send in nystatin ( 60g bottle) for this pt , pt has excoriated abdomen folds ,flacky red fungal odor , she did educate pt , also stated the right side is worse than the left side * Telephone Encounter - KAIDEN Werner - 09/06/2024 3:15 PM EDT done documented in this encounterCommunity Regional Medical Center10-23-2024 Telephone encounter Note* Telephone Encounter - Alice Morrison CMA - 09/06/2024 3:15 PM EDT [facility] called to see if you could send in nystatin ( 60g bottle) for this pt , pt has excoriated abdomen folds ,flacky red fungal odor , she did educate pt , also stated the right side is worse than the left side [facility]10-[facility] Telephone encounter Note* Telephone Encounter - KAIDEN Werner - 09/06/2024 3:15 PM EDT done [facility]10[facility] History of Present illness Narrative* KAIDEN Werner [...] Discharge Specialty: Endocrine Name of Discharging Facility: [facility] Date of Facility Discharge: Admitted: 08/23/24 Discharged: 08/24/24 Date of Interactive Contact and Name of Stummel Selector: 08/25/24 Spoke with patient's daughterIleana Medication Review Completed: Yes CHANGE how you take: insulin detemir U-100 (LEVEMIR) Medication Reconciliation Questions/Concerns: *Follow Up Appointments with Providers: Primary: LISA WernerSEWER CONNECTOR: 08/28/24 Specialty: Endocrinology (Christiano): TBD Review of [...] the most recent facilitydischarge document. Discharged from [facility] on 08-24-24 Patient is accompanied by her daughter today. States daughter administered her insulin. Patient forgot she already received and she administered insulin as well. Subsequently, blood sugar dropped and developed altered mental status. Daughter states blood sugar did not register as it was very low. [facility] Type [...] it was very low. She called the [facility] for ER transport for evaluation. Type 2 DM is managed by endocrine, Zainab Hernandez. Influenza vaccine administered today Follow up 5 months Sooner if needed KAIDEN Werner 08/28/24 0902 documented in this encounterCommunity Regional Medical Center10-02-2024 Miscellaneous Notes* Telephone Encounter - Deja Mojica CMA - 08/16/2024 4:11 PM EDT Do you still need a TCM on this patient? * Telephone Encounter - KAIDEN Werner - 08/16/2024 4:11 PM EDT She currently has COVID-19. I am going to say not at this time documented in this encounterCommunity Regional Medical Center10-02-2024 Telephone encounter Note* Telephone Encounter - Deja Mojica CMA - 08/16/2024 4:11 PM EDT Do you still need a TCM on this patient? [facility] Telephone encounter Note* Telephone Encounter - KAIDEN Werner - 08/16/2024 4:11 PM EDT She currently has COVID-19. I am going to say not at this time [facility]10-[facility] Miscellaneous Notes* Telephone Encounter - Delisa Torres [...] hyperlipidemia associated with type 2 diabetes mellitus ([facility]) Obstructive sleep apnea syndrome Essential (primary) hypertension Acute cystitis without hematuria Stage 3b chronic kidney disease ([facility]) Sepsis without acute organ dysfunction ([facility]) Iron deficiency anemia secondary to inadequate dietary iron intake COVID-19 virus infection Discharge Specialty: Other *Name of Discharging Facility: [facility] Date of Facility Discharge: Admission 08/12/24 Discharge 08/14/24 Date of Interactive Contact and Name of Stummel Selector: 08/16/24 10:22 am Spoke to patients molina Tejeda *Medication Review Completed: No START taking: amoxicillin-pot clavulanate (AUGMENTIN) predniSONE (DELTASONE) Medication Reconciliation Questions/Concerns: -Reviewed discharge changes to medications -Declines medications review -Patients daughter picked up medications and patient started taking as prescribed -Denies questions or concerns *Follow Up Appointments with Providers: Primary: Pam Stinson APRN-SEWER CONNECTOR Specialty: Specialty: Specialty: Review of Pending Lab/Diagnostic [...] pass on this one. documented in this encounterCommunity Regional Medical Center10-02-2024 Telephone encounter Note* Telephone Encounter - Delisa [...] Acute respiratory failure with hypoxia and hypercapnia ([facility]) Active Problems: PVD (peripheral vascular disease) ([facility] Mixed diabetic hyperlipidemia associated with type 2 diabetes mellitus ([facility]) Obstructive sleep apnea syndrome Essential (primary) hypertension Acute cystitis without hematuria Stage 3b chronic kidney disease ([facility]) Sepsis without acute organ dysfunction ([facility]) Iron deficiency anemia secondary to inadequate dietary iron intake COVID-19 virus infection Discharge Specialty: Other *Name of Discharging Facility: [facility] Date of Facility Discharge: Admission 08/12/24 Discharge 08/14/24 Date of Interactive Contact and Name of [place] Selector: 08/16/24 10:22 am Spoke to patients molina Tejeda *Medication Review Completed: No START taking: amoxicillin-pot clavulanate (AUGMENTIN) predniSONE (DELTASONE) Medication Reconciliation Questions/Concerns: -Reviewed discharge changes to medications -Declines medications review -Patients daughter picked up medications and patient started taking as prescribed -Denies questions or concerns *Follow Up Appointments with Providers: Primary: Pam Stinson APRN-SEWER CONNECTOR Specialty: Specialty: Specialty: Review of Pending Lab/Diagnostic [...] Other Services Utilized/Needed by the Patient: [facility] [id number] Telephone encounter Note* Telephone Encounter - Deja Mojica CMA - 08/16/2024 10:13 AM EDT Patient currently has COVID so she will pass on this one. [facility]ova [id number] History of Present illness Narrative* KAIDEN Werner [...] Specialty: Pulmonology Name of Discharging Facility: [facility] Date of Facility Discharge: Admitted; 06/13/24 Discharged: 06/15/24 Date of Interactive Contact and Name of [place]um[place] Selector: 06/16/24 @ 943 am: no answer, left message to return call 06/16/24 @ 151 pm: no answer Medication Review Completed: Pending provider review START taking: albuterol (PROVENTIL,VENTOLIN) doxycycline (MONODOX) fluticasone propion-salmeteroL (ADVAIR) guaiFENesin (MUCINEX) predniSONE (DELTASONE) STOP taking: hydroCHLOROthiazide 25 mg tablet (HYDRODIURIL) Medication Reconciliation Questions/Concerns: Follow Up Appointments with Providers: Primary: Pam Stinson APRN-SEWER CONNECTOR: 06/21/24 Review of Pending Lab/Diagnostic Tests and Plan for Completion: Assessment and Support of Treatment Regimen Adherence and Medication Management: Education Provided by ACN to Support Self-Management, Independent Living and ADLs: Communication with Home Health Agencies and Other Services Utilized/Needed by the Patient: [facility] Presents today for transitional care follow up. Is accompanied by her daughter today. Was discharged from [facility] on 2024. Onset of initial [...] airway disease with acute exacerbation Currently has [facility] home care in the home. Receiving PT for strengthen. Follow up July KAIDEN Werner 06/28/24 [id number] documented in this encounterCommunity Regional Medical Center06-19-2024 History of Present illness Narrative* KAIDEN Werner - 05/03/2024 2:40 PM EDT Subjective Patient ID: Cuca Dee is a 78 y.o. female. The patient is here today for discharge follow up from post acute facility. Transition of Care Med Rec completed? Yes Discharged medications: Medications have been reviewed and reconciled with the most recent facilitydischarge document. Went to [facility] on April 06, 2024 after one day of not feeling well. Daughter called EMS. Was noted to have oxygen sats in the 80's. Subsequently was admitted for pneumonia bilateral lower lobes. After discharge, she recovered at [facility]. Was discharged on Sunday, April 28, 2024.She returned to home, resides with daughter and grandson. No medication changes. Today, she feels she is almost at her normal baseline. Does feel slightly weaker than prior to admission. Uses rolling walker for ambulation. She is scheduled for home care with PT / OT tomorrow. [facility]. The following portions of the patient's [...] KAIDEN Werner 05/03/24 1521 documented in this encounterKettering Health [email or web address] [id number] History of Present illness Narrative* Rosario Strong RN - 03/09/2024 3:38 PM EDT Patient is here for follow up with Dr. Muñoz. Orders received for B/l mammogram is due. F/u in 6 months, CBC, CMP. Patient given calendar, verbalized understanding of future appointments. documented in this encounterCommunity Regional Medical Center04-25-2024 History of Present illness Narrative* Casimiro Muñoz MD - 03/09/2024 3:15 PM EDT Images from the original note were not included. [facility] 03/09/24 Cuca Dee is a 78 y.o. year old female seen today in the oncology clinic. Chief Complaint Patient presents with Follow-up History of Present Illness: Mrs. Dee is a 78 y.o. female with history of aortic valve stenosis, she had PCI earlier in the year at [facility] for coronary disease. during the cardiac [...] mammary carcinoma, grade 2, ER strongly positive CO moderately positive and [id number]. There was also suspicious spine lesion, MRI [...] Cataract Dental disease Depression Diabetes mellitus ([facility]) Diabetes mellitus type 2, controlled ([facility]) Encephalitis Foot fracture, left GERD (gastroesophageal reflux disease) Heart murmur HLD (hyperlipidemia) Hypertension Incontinence Injury of back Insulin dependent diabetes mellitus Kidney failure STAGE 4 Lumbar spondylolysis Murmur Obesity CHELSEA (obstructive sleep apnea) no machine Peptic ulceration Peripheral vascular disease ([facility]) Shortness of breath Stroke ([facility]) 02/27/2024 TIA (transient ischemic attack) Upper respiratory infection UTI (urinary tract infection) Visual impairment Wears dentures Past Surgical History: Procedure Laterality Date BREAST BIOPSY Right 03/01/2023 ULT BIOPSY CATARACT EXTRACTION SECTION SECTION 03/14/1974 EGD N/A 10/17/2019 Performed by Sarai Bell DO at [facility] HYSTEROSCOPY DILATION CURETTAGE MYOSURE N/A 01/29/2021 Performed by Jv Briones MD at [facility] INJECTION BLOCK EPIDURAL CAUDAL STEROID N/A 08/14/2022 Performed by Arnulfo Morgan MD at [facility] INJECTION BLOCK EPIDURAL CAUDAL STEROID N/A 06/06/2021 Performed by Arnulfo Morgan MD at [facility] INJECTION BLOCK EPIDURAL CAUDAL STEROID N/A 04/25/2021 Performed by Arnulfo Morgan MD at [facility] INJECTION CAUDAL EPIDURAL WITH CATHETER, STEROID N/A 05/03/2020 Performed by Arnulfo Morgan MD at [facility] INJECTION CAUDAL EPIDURAL WITH CATHETER, STEROID N/A 11/24/2019 Performed by Arnulfo Morgan MD at [facility] INJECTION CAUDAL EPIDURAL WITH CATHETER, STEROID N/A 04/21/2019 Performed by Arnulfo Morgan MD at [facility] NERVE BLOCK Bilateral L 4/5, 5/1 Bilateral 08/18/2019 Performed by Arnulfo Morgan MD at [facility] INJECTION MEDIAL BRANCH NERVE BLOCK Bilateral L 4/5, 5/1 Bilateral 06/23/2019 Performed by Arnulfo Morgan MD at [facility] INJECTION STEROID EPI 1 WITH SEDATION Right L 4, 5 NR Right 03/17/2019 Performed by Arnulfo Morgan MD at [facility] INJECTION STEROID EPI 1 WITH SEDATION: right L45 nroot Right 08/15/2018 Performed by Arnulfo Morgan MD at [facility] LEFT L4, AND 5 NERVE ROOT INJECTION 2 OF 2 Left 07/22/2018 Performed by Arnulfo Morgan MD at [facility] LEFT L4, AND L5 NERVE ROOT 1 OF 2 Left 07/04/2018 Performed by Arnulfo Morgan MD at [facility] PERCUTANEOUS CORONARY INTERVENTION SHUNT INSERTION TONSILLECTOMY AGE 4 Transcutaneous aortic valve replacement/Transfemoral/Kwan N/A 08/17/2023 Performed by Chava Norris MD at [facility]ATH [facility] Valvuloplasty aortic N/A 06/03/2023 Performed by Chava Norris MD at [facility] Family History Problem [...] min Stress: No Stress Concern Present (10/05/2022) [employer] [place] [employer] - Occupational Stress Questionnaire [...] year Marital Status: Never Received from [facility] [place] Safety & Environment Housing Instability: [...] without long-term current use of insulin ([facility]) Signed by: KAIDEN Santana Monitor blood sugars four times daily and as needed clopidogreL 75 mg tablet Refills: 0 Dose: 75 mg Commonly known as: PLAVIX gabapentin 300 mg capsule Quantity: 180 capsule Refills: 1 Doctor's comments: 90 Day Supply with one refill For diagnoses: 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 mellitus ([facility]) Dose: 300 mg Signed by: KAIDEN Santana 300 mg, oral, 2 times daily Commonly known as: NEURONTIN hydroCHLOROthiazide 25 mg tablet Refills: 0 Dose: 25 mg Commonly known as: HYDRODIURIL * lancets misc Quantity: 200 each Refills: 0 Doctor's comments: Whatever covered by insurance For diagnoses: Controlled type 2 diabetes mellitus with diabetic nephropathy, without long-term current use of insulin ([facility]) Signed by: KAIDEN Santana Monitor blood sugars four times daily and as needed Commonly known as: onetouch ultrasoft * ONETOUCH DELICA PLUS LANCET 33 gauge misc Refills: 0 Generic drug: lancets letrozole 2.5 mg chemo tablet Quantity: 90 tablet Refills: 3 For diagnoses: Malignant neoplasm of upper-outer quadrant of right female breast, unspecified estrogen receptor status ([facility]) Signed by: Dr. Casimiro Muñoz MD TAKE [...] in partial remission, unspecified whether recurrent ([facility]) Dose: 100 mg Signed by: KAIDEN Santana [...] to ensure the accuracy of this automated bench press operator, some errors in bench press operator may have occurred. CC: Patient Care Team: KAIDEN Werner as PCP - General (Family Medicine) John Quiles MD (Nephrology) KAIDEN Hsu as Nurse Practitioner (Pulmonary Medicine) Madison Ye MD as Referring Physician (Endocrinology, Diabetes & Metabolism) Casimiro Muñoz MD as Consulting Physician (Hematology) PCP:Pam Stinson Referring MD: Pam Stinson AP* documented in this encounterRutland Regional Medical CenterEasy Pairings04-25-2024 Instructions* Patient Instructions* Casimiro Muñoz MD - 03/09/2024 3:15 PM EDT B/l mammogram is due. F/u in 6 months, CBC, CMP. documented in this encounterRutland Regional Medical CenterEasy Pairings04-15-2024 Miscellaneous Notes* Telephone Encounter - Maria Del Carmen Holland RN - 02/28/2024 3:24 PM EDT ----- Message from RONNA Melissa sent at 02/28/2024 3:07 PM EDT ----- Regarding: FW: Geetha Jules Maria Del Carmen! I just got called again from [facility]. They were contacted by [facility] and patient does NOT have an order for MRI Brain. She only has the order for CT brain. So I placed a STAT MRI Brain w and wo order for patient to get imaging done at [facility] in next 1-2 weeks. I'm not sure the best way to get this order recognized by [facility] system. Do we need to fax it? Can they see the order in [employer]'s system? Just let mw know if I need to do something different. TIA!!! ----- Message ----- From: RONNA Melissa Sent: 02/28/2024 1:29 PM EDT To: [facility] Stroke Scheduling; [facility] Stroke Instrumentation Fitter Subject: [facility] BAR We suspect a small brainstem stroke on this lady but unfortunately she cannot complete her MRI at [facility]. Cuca has a NON DESTRUCTIVE TESTER shunt that was placed at [facility] in 2019 and is scheduled for a FU appt at [facility] on 03/19/24. Dr. Martell advised the followin. Check P2Y12- I already placed an order in [facility]. This can be done when she goes to [facility]. 2. Expedite MRI Brain. This was scheduled to be done at [facility] on 03/19. Dr. Martell would like it done in the next 1-2 weeks. We can revise the established order if needed. Cuca will need FU in Stroke clinic in 4-6 weeks. (Likely after her 5/5/25 appt). She can see Jayshree Oliver or fellow. Note some of her records are in [facility]. We will need to decide about doubling dose of Plavix vs transition to brilinta pending MRI and P2Y12 testing. Thanks! * Telephone Encounter - Maria Del Carmen Holland RN - 02/28/2024 3:24 PM EDT Faxed MRI brain order to [facility]. Will check tomorrow that they received it. Also faxed order for P2Y12 to [place] lab * Telephone Encounter - Kristy Contreras - 02/28/2024 3:24 PM EDT Received call today 02/29/24 9:10 from [facility] Radiology who stated that patient's MR Brain with and without contrast was denied and will need a prior auth before they can schedule for patient. * Telephone Encounter - Maria Del Carmen Holland RN - 02/28/2024 3:24 PM EDT Sent hospital note to [place] to use for prior authorization. * Telephone Encounter - Maria Del Carmen Holland RN - 02/28/2024 3:24 PM EDT Sched for 5/2 * Telephone Encounter - Maria Del Carmen Holland RN - 02/28/2024 3:24 PM EDT MR moved to 6/5 * Telephone Encounter - Teena Quinonez CMA - 02/28/2024 3:24 PM EDT Called [facility] and caller stated Pt is scheduled for Wednesday 04/25 for MRI. * Telephone Encounter - Teena Quinonez CMA - 02/28/2024 3:24 PM EDT Called [facility] to retrieve imaging. Caller stated it [...] drawn? Order was already faxed over to [place] lab. * Telephone Encounter - Teena Quinonez CMA - 02/28/2024 3:24 PM EDT Called [facility] for MRI to be pushed via PACS. Should be available shortly. Called Pt's daughter per pending lab order. Daughter stated they were unaware of this and will get it completed. * Telephone Encounter - Kristy Hernandez - 02/28/2024 3:24 PM EDT Spoke with Ileana and made an appt documented in this encounterCommunity Regional Medical Center04-15-2024 Telephone encounter Note* Telephone Encounter - Maria Del Carmen Holland RN - 02/28/2024 3:24 PM EDT ----- Message from RONNA Melissa sent at 02/28/2024 3:07 PM EDT ----- Regarding: FW: Geetha Joyce! I just got called again from [facility]. They were contacted by [facility] and patient does NOT have an order for MRI Brain. She only has the order for CT brain. So I placed a STAT MRI Brain w and wo order for patient to get imaging done at [facility] in next 1-2 weeks. I'm not sure the best way to get this order recognized by [facility] system. Do we need to fax it? [facility]? Just let mw know if I need to do something different. TIA!!! ----- Message ----- From: RONNA Melissa Sent: 02/28/2024 1:29 PM EDT To: [facility] Stroke Scheduling; [facility] Stroke Instrumentation Fitter Subject: [facility] FU We suspect a small brainstem stroke on this lady but unfortunately she cannot complete her MRI at [facility]. Cuca has a NON DESTRUCTIVE TESTER shunt that was placed at [facility] in 2019 and is scheduled for a FU appt at [facility] on 03/19/24. Dr. Martell advised the followin. Check P2Y12- I already placed an order in [facility]. This can be done when she goes to [facility]. 2. Expedite MRI Brain. This was scheduled to be done at [facility] on 03/19. Dr. Martell would like it done in the next 1-2 weeks. We can revise the established order if needed. Cuca will need FU in Stroke clinic in 4-6 weeks. (Likely after her 03/19/25 appt). She can see Jayshree Oliver or fellow. Note some of her records are in [facility]. We will need to decide about doubling dose of Plavix vs transition to brilinta pending MRI and P2Y12 testing. Thanks! N(i)²04-15-2024 Telephone encounter Note* Telephone Encounter - Maria Del Carmen Holland RN - 02/28/2024 3:24 PM EDT Faxed MRI brain order to [facility]. Will check tomorrow that they received it. Also faxed order for P2Y12 to [facility]04-15-2024 Telephone encounter Note* Telephone Encounter - Kristy Contreras - 02/28/2024 3:24 PM EDT Received call today 02/29/24 9:10 from [facility] Radiology who stated that patient's MR Brain with and without contrast was denied and will need a prior auth before they can schedule for patient. [facility]04-15-2024 Telephone encounter Note* Telephone Encounter - Maria Del Carmen Holland RN - 02/28/2024 3:24 PM EDT Sent hospital note to [place] to use for prior authorization. [facility]04-15-2024 Telephone encounter Note* Telephone Encounter - Maria Del Carmen Holland RN - 02/28/2024 3:24 PM EDT Sched for /2 [facility]04-15-2024 Telephone encounter Note* Telephone Encounter - Maria Del Carmen Holland RN - 02/28/2024 3:24 PM EDT MR moved to 6/5 [facility]04-15-2024 Telephone encounter Note* Telephone Encounter - Teena Quinonez CMA - 02/28/2024 3:24 PM EDT Called [facility] and caller stated Pt is scheduled for Wednesday 04/25 for MRI. [facility]04-15-2024 Telephone encounter Note* Telephone Encounter - Teena Quinonez CMA - 02/28/2024 3:24 PM EDT Called [facility] to retrieve imaging. Caller stated it is rescheduled for 05/23/24. Postponed message till the date above. [facility]04-15-2024 Telephone encounter Note* Telephone Encounter - Alayna Martel RN - 02/28/2024 3:24 PM EDT Call we have imaging pushed to PACs for review, also can we call patient and remind or ask if she had the P2Y12 lab that needs to be drawn? Order was already faxed over to [place] lab. [facility]04-15-2024 Telephone encounter Note* Telephone Encounter - Teena Quinonez CMA - 02/28/2024 3:24 PM EDT Called [facility] for MRI to be pushed via PACS. Should be available shortly. Called Pt's daughter per pending lab order. Daughter stated they were unaware of this and will get it completed. [facility]04-15-2024 Telephone encounter Note* Telephone Encounter - Kristy Hernandez - 02/28/2024 3:24 PM EDT Spoke with Ileana and made an appt [facility]03-27-2024 History of Present illness Narrative* Pam Stinson, ALICE-SEWER CONNECTOR - 02/09/2024 1:00 PM EDT Images from the original note were not included[place] [id number] SUBJECTIVE: Patient ID: Cuca Dee is a 78 y.o. female. Chief Complaint Patient presents with incontinence Accompanied by daughter today Urine is cloudy, increased incontinence. Concerns for reoccurrence of UTI. [facility] Uses [...] 10/17/2019 Performed by Sarai Bell DO at [facility] HYSTEROSCOPY DILATION CURETTAGE MYOSURE N/A 01/29/2021 Performed by vJ Briones MD at [facility] INJECTION BLOCK EPIDURAL CAUDAL STEROID N/A 08/14/2022 Performed by Arnulfo Morgan MD at [facility] INJECTION BLOCK EPIDURAL CAUDAL STEROID N/A 06/06/2021 Performed by Arnulfo Morgan MD at [facility] INJECTION BLOCK EPIDURAL CAUDAL STEROID N/A 04/25/2021 Performed by Arnulfo Morgan MD at [facility] INJECTION CAUDAL EPIDURAL WITH CATHETER, STEROID N/A 05/03/2020 Performed by Arnulfo Morgan MD at [facility] INJECTION CAUDAL EPIDURAL WITH CATHETER, STEROID N/A 11/24/2019 Performed by Arnulfo Morgan MD at [facility] INJECTION CAUDAL EPIDURAL WITH CATHETER, STEROID N/A 04/21/2019 Performed by Arnulfo Morgan MD at [facility] NERVE BLOCK Bilateral L 4/5, 5/1 Bilateral 08/18/2019 Performed by Arnulfo Morgan MD at [facility] NERVE BLOCK Bilateral L 4/5, 5/1 Bilateral 06/23/2019 Performed by Arnulfo Morgan MD at [facility] INJECTION STEROID EPI 1 WITH SEDATION Right L 4, 5 NR Right 03/17/2019 Performed by Arnulfo Morgan MD at [facility] INJECTION STEROID EPI 1 WITH SEDATION: right L45 nroot Right 08/15/2018 Performed by Arnulfo Morgan MD at [facility] LEFT L4, AND 5 NERVE ROOT INJECTION 2 OF 2 Left 07/22/2018 Performed by Arnulfo Morgan MD at [facility] LEFT L4, AND L5 NERVE ROOT 1 OF 2 Left 07/04/2018 Performed by Arnulfo Morgan MD at [facility] PERCUTANEOUS CORONARY INTERVENTION SHUNT INSERTION TONSILLECTOMY AGE 4 Transcutaneous aortic valve replacement/Transfemoral/Kwan N/A 08/17/2023 Performed by Chava Norris MD at [facility] Valvuloplasty aortic N/A 06/03/2023 Performed by Chava Norris MD at [facility] Past Medical History: Diagnosis Date Anemia Arthritis Asthma very mild, no inhaler use Cataract Dental disease Depression Diabetes mellitus ([facility]) Diabetes mellitus type 2, controlled ([facility]) Encephalitis Foot fracture, left GERD (gastroesophageal reflux disease) Heart murmur HLD (hyperlipidemia) Hypertension Incontinence Injury of back Insulin dependent diabetes mellitus Kidney failure STAGE 4 Lumbar spondylolysis Murmur Obesity CHELSEA (obstructive sleep apnea) no machine Peptic ulceration Peripheral vascular disease ([facility]) Shortness of breath TIA (transient ischemic attack) [...] KAIDEN Werner 02/09/24 1420 documented in this encounterCommunity Regional Medical Center01-31-2024 History of Present illness Narrative* KAIDEN Werner - 12/15/2023 3:00 PM EST Images from the original note were not included. [address] [facility] [id number] SUBJECTIVE: Patient ID: Cuca Dee is a [...] 10/17/2019 Performed by Sarai Bell DO at [facility] HYSTEROSCOPY DILATION CURETTAGE MYOSURE N/A 01/29/2021 Performed by Jv Briones MD at [facility] INJECTION BLOCK EPIDURAL CAUDAL STEROID N/A 08/14/2022 Performed by Arnulfo Morgan MD at [facility] INJECTION BLOCK EPIDURAL CAUDAL STEROID N/A 06/06/2021 Performed by Arnulfo Morgan MD at [facility] INJECTION BLOCK EPIDURAL CAUDAL STEROID N/A 04/25/2021 Performed by Arnulfo Morgan MD at [facility] CAUDAL EPIDURAL WITH CATHETER, STEROID N/A 05/03/2020 Performed by Arnulfo Morgan MD at [facility] CAUDAL EPIDURAL WITH CATHETER, STEROID N/A 11/24/2019 Performed by Arnulfo Morgan MD at [facility] CAUDAL EPIDURAL WITH CATHETER, STEROID N/A 04/21/2019 Performed by Arnulfo Morgan MD at [facility] MEDIAL BRANCH NERVE BLOCK Bilateral L 4/5, 5/1 Bilateral 08/18/2019 Performed by Arnulfo Morgan MD at [facility] NERVE BLOCK Bilateral L 4/5, 5/1 Bilateral 06/23/2019 Performed by Arnulfo Morgan MD at [facility] STEROID EPI 1 WITH SEDATION Right L 4, 5 NR Right 03/17/2019 Performed by Arnulfo Morgan MD at [facility] STEROID EPI 1 WITH SEDATION: right L45 nroot Right 08/15/2018 Performed by Arnulfo Morgan MD at [facility] LEFT L4, AND 5 NERVE ROOT INJECTION 2 OF 2 Left 07/22/2018 Performed by Arnulfo Morgan MD at [facility] LEFT L4, AND L5 NERVE ROOT 1 OF 2 Left 07/04/2018 Performed by Arnulfo Morgan MD at [facility] PERCUTANEOUS CORONARY INTERVENTION SHUNT INSERTION TONSILLECTOMY AGE 4 Transcutaneous aortic valve replacement/Transfemoral/Kwan N/A 08/17/2023 Performed by Chava Norris MD at [facility]ATH [facility] Valvuloplasty aortic N/A 06/03/2023 Performed by Chava Norris MD at [facility] Past Medical History: Diagnosis Date Anemia Arthritis Asthma very mild, no inhaler use Cataract Dental disease Depression Diabetes mellitus ([facility] Diabetes mellitus type 2, controlled ([facility]) Encephalitis Foot fracture, left GERD (gastroesophageal reflux disease) Heart murmur HLD (hyperlipidemia) Hypertension Incontinence Injury of back Insulin dependent diabetes mellitus Kidney failure STAGE 4 Lumbar spondylolysis Murmur Obesity CHELSEA (obstructive sleep apnea) no machine Peptic ulceration Peripheral vascular disease ([facility]) Shortness of breath TIA (transient ischemic attack) [...] needed (cough and congestion). Normal pressure hydrocephalus ([facility]) Moderate episode of recurrent major depressive disorder ([facility]) PVD (peripheral vascular disease) ([facility]) 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 mellitus ([facility]) - gabapentin (NEURONTIN) 300 mg capsule; Take 1 capsule (300 mg total) by mouth in the morning and 1 capsule (300 mg total) before bedtime. Stage 3b chronic kidney disease ([facility]) Major depressive disorder in partial remission, unspecified whether recurrent ([facility]) - sertraline (ZOLOFT) 100 mg tablet; Take [...] 3b chronic kidney disease and hypertension ([facility]) - SITagliptin phosphate (JANUVIA) 50 mg tablet; Take 1 tablet (50 mg total) by mouth in the morning. Type 2 DM -Managed by endocrine in [place] She believes her A1c is below 7% [...] needed for sore throat. Tylenolas needed per winder contort operator guidelines for fever or pain. Body [...] KAIDEN Werner 12/15/23 1559 documented in [facility] History of Present illness Narrative* Casimiro Muñoz MD - 11/25/2023 2:30 PM EST Images from the original note were not included. [facility] 11/25/23 Cuca Dee is a 78 y.o. year old female seen today in the oncology clinic. Chief Complaint Patient presents with Follow-up History of Present Illness: Mrs. Dee is a 78 y.o. female with history of aortic valve stenosis, she had PCI earlier in the year at [facility] for coronary disease. during the cardiac [...] mammary carcinoma, grade 2, ER strongly positive CO moderately positive and [id number]. There was also suspicious spine lesion, MRI [...] Cataract Dental disease Depression Diabetes mellitus ([facility]) Diabetes mellitus type 2, controlled ([facility]) Encephalitis Foot fracture, left GERD (gastroesophageal reflux disease) Heart murmur HLD (hyperlipidemia) Hypertension Incontinence Injury of back Insulin dependent diabetes mellitus Kidney failure STAGE 4 Lumbar spondylolysis Murmur Obesity CHELSEA (obstructive sleep apnea) no machine Peptic ulceration Peripheral vascular disease ([facility]) Shortness of breath TIA (transient ischemic attack) Upper respiratory infection UTI (urinary tract infection) Visual impairment Wears dentures Past Surgical History: Procedure Laterality Date BREAST BIOPSY Right 03/01/2023 ULT BIOPSY CATARACT EXTRACTION SECTION SECTION 03/14/1974 EGD N/A 10/17/2019 Performed by Sarai Bell DO at [facility] HYSTEROSCOPY DILATION CURETTAGE MYOSURE N/A 01/29/2021 Performed by Jv Briones MD at [facility] INJECTION BLOCK EPIDURAL CAUDAL STEROID N/A 08/14/2022 Performed by Arnulfo Morgan MD at [facility] INJECTION BLOCK EPIDURAL CAUDAL STEROID N/A 06/06/2021 Performed by Arnulfo Morgan MD at [facility] INJECTION BLOCK EPIDURAL CAUDAL STEROID N/A 04/25/2021 Performed by Arnulfo Morgan MD at [facility] INJECTION CAUDAL EPIDURAL WITH CATHETER, STEROID N/A 05/03/2020 Performed by Arnulfo Morgan MD at [facility] INJECTION CAUDAL EPIDURAL WITH CATHETER, STEROID N/A 11/24/2019 Performed by Arnulfo Morgan MD at [facility] INJECTION CAUDAL EPIDURAL WITH CATHETER, STEROID N/A 04/21/2019 Performed by Arnulfo Morgan MD at [facility] MEDIAL BRANCH NERVE BLOCK Bilateral L 4/5, 5/ Bilateral 08/18/2019 Performed by Arnulfo Morgan MD at [facility] INJECTION MEDIAL BRANCH NERVE BLOCK Bilateral L 4/5, 5/ Bilateral 06/23/2019 Performed by Arnulfo Morgan MD at [facility] STEROID EPI 1 WITH SEDATION Right L 4, 5 NR Right 03/17/2019 Performed by Arnulfo Morgan MD at [facility] INJECTION STEROID EPI 1 WITH SEDATION: right L45 nroot Right 08/15/2018 Performed by Arnulfo Morgan MD at [facility] LEFT L4, AND 5 NERVE ROOT INJECTION 2 OF 2 Left 07/22/2018 Performed by Arnulfo Morgan MD at [facility] LEFT L4, AND L5 NERVE ROOT 1 OF 2 Left 07/04/2018 Performed by Arnulfo Morgan MD at [facility] PERCUTANEOUS CORONARY INTERVENTION SHUNT INSERTION TONSILLECTOMY AGE 4 Transcutaneous aortic valve replacement/Transfemoral/Kwan N/A 08/17/2023 Performed by Chava Norris MD at [facility] Valvuloplasty aortic N/A 06/03/2023 Performed by Chava Norris MD at [facility] Family History Problem [...] min Stress: No Stress Concern Present (10/05/2022) [employer] [place] [facility] [employer] - Occupational Stress Questionnaire [...] without long-term current use of insulin ([facility]) Signed by: KAIDEN Santana Monitor blood sugars four times daily and as needed clopidogreL 75 mg tablet Refills: 0 Dose: 75 mg Commonly known as: PLAVIX COMFORT EZ PEN NEEDLES 32 gauge x 5/16 needle Quantity: 200 each Refills: 6 For diagnoses: Type 2 diabetes mellitus with stage 4 chronic kidney disease, with long-term currentuse of insulin ([facility]) Dose: 4 applicator Signed by: KAIDEN Santana 4 applicators, miscellaneous, See admin instructions, 4 times daily injection Generic drug: pen needle, diabetic DEXCOM G6 MOLDING ASSOCIATE misc Refills: 0 Dose: 1 Device Generic drug: blood-glucose meter,continuous DEXCOM G6 SENSOR device Refills: 0 Generic drug: blood-glucose sensor gabapentin 300 mg capsule Quantity: 180 capsule Refills: 1 Doctor's comments: 90 Day Supply. 1 refill For diagnoses: 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 mellitus ([facility]) Dose: 300 mg Signed by: KAIDEN Santana 300 mg, oral, 2 times daily Commonly known as: NEURONTIN hydroCHLOROthiazide 25 mg tablet Refills: 0 Dose: 25 mg Commonly known as: HYDRODIURIL insulin lispro 100 unit/mL insulin pen Refills: 0 For diagnoses: Mixed diabetic hyperlipidemia associated with type 2 diabetes mellitus ([facility]) Dose: 2 Units Signed by: RONNA Solis [...] without long-term current use of insulin ([facility]) Signed by: KAIDEN Santana Monitor blood sugars four times daily and as needed Commonly known as: onetouch ultrasoft * ONETOUCH DELICA PLUS LANCET 33 gauge misc Refills: 0 Generic drug: lancets letrozole 2.5 mg chemo tablet Quantity: 90 tablet Refills: 3 For diagnoses: Malignant neoplasm of upper-outer quadrant of right female breast, unspecified estrogen receptor status ([facility]) Dose: 2.5 mg Signed by: Dr. Casimiro Muñoz MD 2.5 mg, oral, Daily Commonly known as: FEMARA LEVEMIR FLEXPEN 100 unit/mL (3 mL) insulin pen Quantity: 30 mL Refills: 3 For diagnoses: Controlled type 2 diabetes mellitus with diabetic nephropathy, without long-term current use of insulin ([facility]) Signed by: KAIDEN Santana INJECT 30 UNITS UNDER THE SKIN NIGHTLY Generic drug: insulin detemir U-100 metoprolol succinate XL 25 mg 24 hr tablet Quantity: 90 tablet Refills: 2 For diagnoses: Essential hypertension, Athscl heart disease of [place] coronary artery w/o ang pctrs Dose: 25 [...] disorder in partial remission, unspecified whether recurrent ([facility]) Dose: 100 mg Signed by: KAIDEN Santana 100 mg, oral, Daily Commonly known as: ZOLOFT SITagliptin phosphate 50 mg tablet Quantity: 90 tablet Refills: 1 For diagnoses: Diabetes mellitus type 2, insulin dependent ([facility]), Type 2 diabetes mellitus withstage 3b chronic kidney disease and hypertension ([facility]) Dose: 50 mg Signed by: KAIDEN Santana [...] this note were generated using voice recognition [employer] dictation software. Although every effort was made to ensure the accuracy of this automated bench press operator, some errors in bench press operator may have occurred. CC: Patient Care Team: KAIDEN Werner as PCP - General (Family Medicine) John Quiles MD (Nephrology) KAIDEN Hsu as Nurse Practitioner (Pulmonary Medicine) Madison Ye MD as Referring Physician (Endocrinology, Diabetes & Metabolism) Casimiro Muñoz MD as Consulting Physician (Hematology) PCP:Pam Stinson Referring MD: Pam Stinson AP* documented in this encounterK[facility] [id number] Instructions* Patient Instructions* Casimiro Muñoz MD - 11/25/2023 2:30 PM EST Pet SCAN 02/2024. F/u in late 02/2024 to review results. Continue femara alone. Labs before appt: CBC, CMP, CA 15-3, CA 27.29. documented in this encounterKet[facility] DaytonS[facility] [id number] History of Present illness Narrative* Rosario Strong RN - 11/25/2023 2:16 PM EST Patient is here for follow up with Dr. Muñoz. Orders received for pet ct in February with cbc cmp ca 15-3 and ca27-29. Follow up scheduled in late February. Patient given calendar, verbalized understanding of future appointments. documented in this encounterCommunity [facility] Center01-27-2023 History of Present illness Narrative* Stefanie Lu RN - 12/11/2022 11:07 AM EST Patient discharged home. Discharge instructions were explained and given to the patient, patient verbalized understanding. All belongings were sent with the patient. No signs of acute distress noted,no concerns voiced. * Sashadanyel Maldonado, PT - 12/10/2022 11:46 AM EST Physical Therapy Facility/Department: [address] Physical Therapy Name: Cuca Dee : [...] Out 1000 Minutes 25 Sasha Maldonado, PT TIAN * Tiffany Casillas PTA - 12/09/2022 1:06 PM EST Physical Therapy Facility/Department: [address] STEPDOWN Daily Treatment Note NAME: Cuca [...] CASILLAS PTA * Radha Moya APRN - SEWER CONNECTOR - 12/09/2022 11:13 AM EST Images from the original note were not included. [place] [facility] Progress Note Date: 12/09/2022 Patient name: Cuca [...] a max pressure of: 12 graciela. Resolute [place] 3.0 x 12 CÉSAR. 1 inflation(s) to [...] 182 cm. Number of passes: 1. Resolute [place] 2.5 x 12 CÉSAR. 1 inflation(s) to [...] stable. Plans for TAVR work-up as OP [place] [facility]. [phone] * Princess Puente PT - 12/08/2022 2:57 PM EST Physical Therapy Facility/Department: [address] [facility] Initial Assessment Name: Cuca Dee [...] pt repositioned in bed for comfort upon teletypewriter operator's exit. Subjective Subjective: RN and pt [...] rollator at baseline) Transfer Assistance: Independent Active Upper Extremity Surgeon: No Mode of Transportation: Friends, Cab Occupation: [...] able to sit EOB CGA AM-PAC Score AM-[facility] Inpatient Mobility Raw Score : 21 (12/08/22 1456) AM-PAC Inpatient T-Scale Score : 50.25 (12/08/221455) [...] 23 Minutes Princess Puente PT * Rita Leos APRN - SEW[facility] CONNECTOR - 12/08/2022 1:02 PM EST Images from the original note were not included. [place] [employer] [facility] Progress Note Date: 12/08/2022 Patient name: Cuca [...] a max pressure of: 12 graciela. Resolute [place] 3.0 x 12 CÉSAR. 1 inflation(s) to [...] 182 cm. Number of passes: 1. Resolute [place] 2.5 x 12 CÉSAR. 1 inflation(s) to [...] Plans for TAVR work-up as OP [place] [employer] [facility]. [phone] * Fany Bhakta RN - 12/08/2022 11:10 AM EST Rat Farmer discussed the next step in the TAVR process, an appointment with the cardiothoracic surgeon,with patient and daughter at bedside in [facility]. Office number given to daughter, she will call to schedule in the next couple days. Rat Farmer's contact number also given. * Joelle Enrique RN - 12/08/2022 10:00 AM EST Patient declined AM glucose check. She has Dexcom meter in place showing glucose of 99. [facility] policy of checking glucose with our [...] via stretcher. Right groin assessed byHeather and teletypewriter operator. Groin remains soft. * Flory Shelby RN [...] 3:00 PM EST Manual pressure held per teletypewriter operator for [address] Martinez at [...] of 2. Bilateral groin areas clipped with teletypewriter operator and Maggi estrada present. Daughter Ismael at bedside with patient. History and physical needs updated. * Keely Priest RN - 12/07/2022 1:30 PM EST Received post cardiac cath procedure to [facility] room 10. Assessment obtained. Restrictions reviewed with patient. Post procedure pathway initiated. Right site noted to have small hematoma, manual pressure held by [place]. Band aid dry and intact. Family at side. Patient without complaints. Head of bed flat with right leg straight. documented in this encounterBON LionWorks [facility] [employer] Work Phone: 1(394) 604-904401-23-2023 Note [facility] Vascular Lower Extremities Arterial Duplex Procedure Patient Name LUIZ Date of Study 12/07/2022 CUCA Date of 1945 Gender Female Age 77 year(s) Race Room Number 0501 Height: 65 inch, 165.1 cm Corporate ID # [id number] Weight: 208 pounds, 94.3 kg Patient BSA: 2.01 m^2 BMI: 34.61 kg/m^2 MR # [id number] Web Analytics Specialist Whit Gan Reji Interpreting Physician Darnell Monique Referring Referring Physician SKYE MARTINEZ MD Nurse Practitioner Procedure Type of [...] ! ! ! ! ! +---------++-----+-----+------+----+------++---+-----+------+----+---------+MHPN STV [id number] History of Present illness Narrative* Keely Priest, GABBY - 11/24/2022 1:00 PM EST Patient admitted, consent signed and questions answered. Patient ready for procedure. Call light toreach with side rails up 2 of 2. Bilateral groin areas clipped with teletypewriter operator and Jose PIERRE present. Daughter Ileana at bedside with patient. History and physical needs updated. documented in this [email or web address] Phone: [phone]) 686-317105-06-2021 NotePROCEDURE: XR FOOT LT MIN 3 VIEWS COMPARISON: None. HISTORY: Pain FINDINGS: BONES:No acute fracture or dislocation. Persistent flexion of the toes limits their evaluation. Mild to moderate degenerative changes with joint space narrowing and marginal osteophyte formation, most significant at the first metatarsophalangeal joint where uxra-ra-itso endplate is observed SOFT TISSUES:Negative. No visible soft tissue swelling. EFFUSION:None visible. OTHER: Negative. IMPRESSION: Moderate degenerative changes, no acute fracture Electronically authenticated by: GIOVANNY NICOLE Date: 2021-03-20 08:29[facility] note* Clinical Note Date No Information [facility] Work Phone: Discharge summary* Clinical Note Date No Information [facility] Work Phone: Evaluation note* Diagnosis Severe aortic valve stenosis- Primary Aortic valve disorders documented in this encounter [email or web address] Phone: [email or web address] note* Diagnosis RAIN (acute kidney injury) (HCC)- Primary Acute kidney failure, unspecified documented in this encounter [email or web address] Phone: evaluation note* Diagnosis Severe aortic valve [...] kidney disease (HCC) Coronary artery disease involving [place] coronary artery of [place] heart without angina pectoris documented in this encounter [email or web address] Phone: evaluation note* Diagnosis Aortic valve stenosis, etiology of cardiac valve disease unspecified documented in this encounter [facility] [employer] Phone: [email or web address] note* Diagnosis Aortic valve stenosis, etiology of cardiac valve disease unspecified documented in this encounter [facility] [employer] Phone: evaluation note* Diagnosis Nonrheumatic aortic valve stenosis- Primary S/p TAVR (transcatheter aortic valve replacement), bioprosthetic Coronary artery disease involving [place] coronary artery of [place] heart without angina pectoris [facility]* Diagnosis Mixed diabetic hyperlipidemia associated with type 2 diabetes mellitus ([facility]) - Primary Insomnia, unspecified type Elevated troponin level Other abnormal blood chemistry Recurrent UTI Urinary tract infection, site not specified [facility]* Diagnosis Malignant neoplasm of upper-outer quadrant of right breast in female, estrogen receptor positive ([facility])- Primary Metastasis to bone ([facility]) Secondary malignant neoplasm of bone and bone marrow [facility]* Diagnosis Malignant neoplasm of upper-outer quadrant of right female breast, unspecified estrogen receptor status ([facility])- Primary [facility]* Diagnosis Malignant neoplasm of upper-outer quadrant of right female breast, unspecified estrogen receptor status ([facility])- Primary [facility]* Diagnosis Malignant neoplasm of upper-outer quadrant of right female breast, unspecified estrogen receptor status ([facility])- Primary documented [facility]* Diagnosis Insomnia, unspecified type documented [facility]* Diagnosis Upper respiratory tract infection, unspecified type- Primary Normal pressure hydrocephalus ([facility]) 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 ([facility]) PVD (peripheral vascular disease) ([facility]) Unspecified peripheral vascular disease 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 mellitus ([facility]) Stage 3b chronic kidney disease ([facility]) Major depressive disorder in partial remission, unspecified whether recurrent ([facility]) Essential hypertension Unspecified essential hypertension GERD without esophagitis Esophageal reflux 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 ([facility]) documented [facility]* Diagnosis Pneumonia due to other specified organism- Primary documented [facility]* Diagnosis Malignant neoplasm of upper-outer quadrant of right female breast, unspecified estrogen receptor status (CMS-HCC) documented [facility]* Diagnosis Major depressive disorder in partial remission, unspecified whether recurrent ([facility]) documented [facility]* Diagnosis Essential hypertension Unspecified essential hypertension Major depressive disorder in partial remission, unspecified whether recurrent ([facility]) documented [facility]* Diagnosis Acute cystitis without hematuria- Primary Urge incontinence of urine Urge incontinence documented [facility]* Diagnosis Hypoglycemia- Primary Hypoglycemia, unspecified Mild intermittent reactive airway disease with acute exacerbation documented [facility]* Diagnosis Hypoglycemia- Primary Hypoglycemia, unspecified Need for influenza vaccination Need for prophylactic vaccination and inoculation against influenza Altered mental status, unspecified altered mental status type documented [facility] this [facility]* Diagnosis Beverly infection of flexural skin- Primary Candidiasis of skin and nails documented [facility] this [facility]* Diagnosis Malignant neoplasm of upper-outer quadrant of right breast in female, estrogen receptor positive ([facility] Primary documented [facility]* Diagnosis 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 mellitus ([facility]) documented [facility]* Diagnosis Insomnia, unspecified type- Primary Moderate episode of recurrent major depressive disorder ([facility]) Stage 3b chronic kidney disease ([facility]) documented [facility]* Diagnosis Malignant neoplasm of upper-outer quadrant of right breast in female, estrogen receptor positive (CMS-HCC)- Primary Metastasis to bone (CMS-HCC) Secondary malignant neoplasm of bone and bone marrow documented [facility]* Type Assessment Date No Information [facility] Work Phone: Evaluation note* Diagnosis MRSA (methicillin resistant Staphylococcus aureus)- Primary Methicillin resistant Staphylococcus aureus in conditions classified elsewhere and of unspecified site Staphylococcus aureus bacteremia with sepsis ([facility]) [facility]* Diagnosis Staphylococcus aureus bacteremia with sepsis ([facility])- Primary documented [facility]* Diagnosis Staphylococcus aureus bacteremia with sepsis ([facility])- Primary MRSA (methicillin resistant Staphylococcus aureus) Methicillin resistant Staphylococcus aureus in conditions classified elsewhere and of unspecified site documented [facility]* Diagnosis Staphylococcus aureus bacteremia with sepsis ([facility])- Primary MRSA (methicillin resistant Staphylococcus aureus) Methicillin resistant Staphylococcus aureus in conditions classified elsewhere and of unspecified site documented [facility] this encounter [facility]* Diagnosis Staphylococcus aureus bacteremia with sepsis ([facility])- Primary MRSA (methicillin resistant Staphylococcus aureus) Methicillin resistant Staphylococcus aureus in conditions classified elsewhere and of unspecified site documented [facility] this encounter [facility]* Diagnosis Staphylococcus aureus bacteremia with sepsis ([facility])- Primary MRSA (methicillin resistant Staphylococcus aureus) Methicillin resistant Staphylococcus aureus in conditions classified elsewhere and of unspecified site [facility] SystemEvaluation note* Diagnosis Staphylococcus aureus bacteremia with sepsis ([facility])- Primary MRSA (methicillin resistant Staphylococcus aureus) Methicillin resistant Staphylococcus aureus in conditions classified elsewhere and of unspecified site documented in this encounter [facility]* Diagnosis Staphylococcus aureus bacteremia with sepsis ([facility])- Primary MRSA (methicillin resistant Staphylococcus aureus) Methicillin resistant Staphylococcus aureus in conditions classified elsewhere and of unspecified site documented in this encounter [facility] System[facility]* Diagnosis Staphylococcus aureus bacteremia with sepsis ([facility] Primary MRSA (methicillin resistant Staphylococcus aureus) Methicillin resistant Staphylococcus aureus in conditions classified elsewhere and of unspecified site documented in this encounter [facility] System[facility]* Diagnosis Staphylococcus aureus bacteremia with sepsis ([facility] Primary MRSA (methicillin resistant Staphylococcus aureus) Methicillin resistant Staphylococcus aureus in conditions classified elsewhere and of unspecified site documented in this encounter [facility] System[facility]* Diagnosis Moderate major depression ([facility] Primary Major depressive disorder, single episode, moderate Insomnia, unspecified type Normal pressure hydrocephalus ([facility]) Idiopathic normal pressure hydrocephalus ([facility]) Acute on chronic diastolic heart failure ([facility]) Acute on chronic diastolic heart failure Diabetes mellitus type 2, insulin dependent ([facility]) documented in this encounter [facility] System[facility]* Diagnosis Acute respiratory failure with hypoxia ([facility])- Primary Acute respiratory failure with hypoxia ([facility]) Nondisplaced fracture of lesser trochanter of right femur, initial encounter for closed fracture ([facility]) Generalized weakness Closed fracture of right hip, initial encounter ([facility]) Hypoxia Hypoxemia Type 2 diabetes mellitus with hypoglycemia without coma, with long-term current use of insulin ([facility]) 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 mellitus ([facility]) Mixed diabetic hyperlipidemia associated with type 2 diabetes mellitus ([facility]) Obstructive sleep apnea syndrome Obstructive sleep apnea (adult) (pediatric) Essential (primary) hypertension Unspecified essential hypertension Stage 3b chronic kidney disease ([facility]) Type 2 diabetes mellitus with diabetic chronic kidney disease ([facility]) Closed fracture of right hip ([facility]) Nondisplaced fracture of lesser trochanter of right femur, initial encounter for closed fracture ([facility]) Hypomagnesemia Disorders of magnesium metabolism Iron deficiency anemia Unspecified iron deficiency anemia Acute on chronic diastolic congestive heart failure ([facility]) [facility] Diagnosis Hospital discharge follow-up- Primary Other follow-up examination Closed fracture of right hip, sequela documented in this encounter [facility]* Diagnosis Acute right hip pain- Primary Acute pain of both hips Closed avulsion fracture of right hip with routine healing, subsequent encounter [facility] noteNo assessment information availablePeoples [facility] Work Phone: Evaluation note* Diagnosis Intractable nausea and vomiting- Primary Adnexal mass Other specified symptom associated with female genital organs Intractable nausea and vomiting Type 2 diabetes mellitus without complication, without long-term current use of insulin ([facility]) Generalized weakness Hypomagnesemia Disorders of magnesium metabolism Iron deficiency anemia due to chronic blood loss Iron deficiency anemia secondary to blood loss (chronic) 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 mellitus ([facility]) Iron deficiency anemia Unspecified iron deficiency anemia Chronic diastolic congestive heart failure ([facility]) Weakness Other malaise and fatigue Adnexal mass Other specified symptom associated with female genital organs documented in this encounter [facility] note* Diagnosis Chronic diastolic congestive heart failure ([facility])- Primary Hypertensive heart and chronic kidney disease with heart failure and stage 1 through stage 4 chronic kidney disease, or unspecified chronic kidney disease ([facility]) Intractable nausea and vomiting Urinary tract infection without hematuria, site unspecified [facility]* Diagnosis Acute right hip pain- Primary Closed avulsion fracture of right hip with routine healing, subsequent encounter Intertrochanteric fracture of right hip, closed, initial encounter (HCC) documented in this encounter [facility] HealthcareEvaluation note* Diagnosis Hypertensive heart and chronic kidney disease with heart failure and stage 1 through stage 4 chronic kidney disease, or unspecified chronic kidney disease ([facility])- Primary Chronic obstructive pulmonary disease, unspecified COPD type ([facility]) Lumbar back pain with radiculopathy affecting left lower extremity Spinal stenosis of lumbar region with neurogenic claudication Closed fracture of right hip, sequela Rhinitis, unspecified type [facility]* Diagnosis Pathological fracture of right hip with routine healing, unspecified pathological cause, subsequentencounter- Primary Closed nondisplaced fracture of pelvis with routine healing, unspecified part of pelvis, subsequentencounter Mixed diabetic hyperlipidemia associated with type 2 diabetes mellitus ([facility]) Hypertensive heart and chronic kidney disease with heart failure and stage 1 through stage 4 chronic kidney disease, or unspecified chronic kidney disease ([facility]) documented in this encounter [facility]* Diagnosis Chronic diastolic congestive heart failure ([facility])- Primary Pathological fracture of right hip with routine healing, unspecified pathological cause, subsequentencounter Closed fracture of right hip, sequela Closed nondisplaced fracture of lesser trochanter of right femur with delayed healing Other abnormalities of gait and mobility Hypertensive heart and chronic kidney disease with heart failure and stage 1 through stage 4 chronic kidney disease, or unspecified chronic kidney disease ([facility]) [facility]* Diagnosis 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 mellitus ([facility]) Insomnia, unspecified type [facility]* Diagnosis 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, subsequent encounter- Primary Lesion of left femur Lesion of left femur- Primary Lesion of left femur [facility]* Diagnosis Lesion of left femur- Primary Coronary artery disease involving ty[place]k coronary artery of ty[place]k heart without angina pectoris Chronic diastolic congestive heart failure ([facility]) S/p TAVR (transcatheter aortic valve replacement), 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 and stage 1 through stage 4 chronic kidney disease, or unspecified chronic kidney disease ([facility]) [facility]* Diagnosis Chronic obstructive pulmonary disease, unspecified COPD type ([facility])- Primary Hypertensive heart and chronic kidney disease with heart failure and stage 1 through stage 4 chronic kidney disease, or unspecified chronic kidney disease ([facility]) Chronic diastolic congestive heart failure ([facility]) Pathological fracture, hip, unspecified, subsequent encounter for fracture with routine healing [facility]* Diagnosis 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, subsequent encounter- Primary [facility]* Diagnosis Lesion of left femur- Primary 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 documented in this encounter [facility] System[facility] note* Diagnosis Closed nondisplaced fracture of lesser trochanter of right femur with delayed healing- Primary Stage 3b chronic kidney disease ([facility]) Type 2 diabetes mellitus with stage 4 chronic kidney disease, without long-term current use of insulin ([facility]) Chronic diastolic congestive heart failure ([facility]) [facility]* Diagnosis Closed nondisplaced fracture of lesser trochanter of right femur with delayed healing- Primary Confusion Unspecified psychosis Other abnormalities of gait and mobility Chronic obstructive pulmonary disease, unspecified COPD type ([facility]) Hypertensive heart and chronic kidney disease with heart failure and stage 1 through stage 4 chronic kidney disease, or unspecified chronic kidney disease ([facility]) Anemia, unspecified type [facility]* Diagnosis 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 ([facility])- Primary Hypertensive heart and chronic kidney disease with heart failure and stage 1 through stage 4 chronic kidney disease, or unspecified chronic kidney disease ([facility]) Nausea and vomiting, unspecified vomiting type [facility] SystemHistory and physical note* Clinical Note Date No Information [facility] Work Phone: Hospital Discharge instructions* Attachments The following attachments cannot be sent through Care Everywhere. * PCI (Percutaneous Coronary Intervention): Post-op (Martiniquais) [facility] Work Phone: Hospital Discharge instructionsNot on filedocumented in this encounterProPomerene HospitalSymphony [facility] SystemInstructionsNot on filedocumented in this encounterProPomerene HospitalSymphony [facility] Health SystemInstructionsNot on filedocumented in this encounterProPomerene HospitalStar.me SystemInstructionsNot on filedocumented in this encounterProWalker [facility] S[facility] SystemInstructions* Attachments The following attachments cannot be sent through Care Everywhere. * Carbohydrate Counting Diet (Martiniquais) documented in this encounterProPomerene HospitalStar.me SystemInstructionsNot on file documented in this encounterProPomerene HospitalStar.me SystemInstructionsNot on file documented in this encounterProPomerene HospitalStar.me SystemInstructionsNot on file documented in this encounterProPomerene HospitalStar.me SystemInstructions* Attachments The following attachments cannot be sent through Care Everywhere. * Bacterial Upper Respiratory Infection, Adult (Martiniquais) documented in this encounterProPomerene HospitalStar.me SystemInstructions* Attachments The following attachments cannot be sent through Care Everywhere. * Pneumonia in adults ([place]iqu[place]) documented in this encounterProPomerene HospitalStar.me SystemInstructionsNot on file documented in this encounterProPomerene HospitalStar.me SystemInstructionsNot on file documented in this encounterProCartour SystemInstructionsNot on file documented in this encounterProPomerene HospitalStar.me SystemInstructionsNot on file documented in this encounterProPomerene HospitalStar.me SystemInstructions* Attachments The following attachments cannot be sent through Care Everywhere. * Urinary Tract Infection Discharge Instructions, Adult (Martiniquais) documented in this encounterProPomerene HospitalStar.me SystemInstructions* Attachments The following attachments cannot be sent through Care Everywhere. * Low blood sugar in people without diabetes ([place]iquais) documented in this encounterProPomerene HospitalStar.me SystemInstructionsNot on file documented in this encounterProCartour SystemInstructionsNot on file documented in this encounterProPomerene HospitalStar.me SystemInstructionsNot on file documented in this encounterProPomerene HospitalStar.me SystemInstructions* Attachments The following attachments cannot be sent through Care Everywhere. * Flu vaccine ([place]iquais) documented in this encounterProPomerene HospitalStar.me SystemInstructionsNot on file documented in this encounterProCartour SystemInstructionsNot on file documented in this encounterProPomerene HospitalStar.me SystemInstructionsNot on file documented in this encounterProWalker [facility] Hospital Sova SystemInstructions* Attachments The following attachments cannot be sent through Care Everywhere. * Insomnia ([place]iquais) documented in this encounterProMedica Health SystemInstructionsNot on file documented in this encounterProMedica Health SystemInstructionsNot on file documented in this encounterProMedica Health SystemInstructionsNot on file documented in this encounterProMedica Health SystemInstructionsNot on file documented in this encounterProMedica Health SystemInstructionsNot on file documented in this encounterProMedica Health SystemInstructions* Attachments The following attachments cannot be sent through Care Everywhere. * Heart failure (Martiniquais) documented in this encounterProMedica Health SystemInstructionsNot on [...] Health SystemInstructionsNot on file documented in this encounterProWAPA Health SystemProgress note* Clinical Note Date No Information [facility] Work Phone: Reason for referral (narrative)* Reason For Referral No Information [facility] Work Phone: Reason for referral (narrative)No reason for referral information availableGerman Hospital Work Phone: Reason for visit Narrative* Auth/CertSpecialty Diagnoses / ProceduresReferred By ContactReferred To Contact Diagnoses weakness [place] [address] [address] [place] [phone] Phone: tel: fax: Referral IDStatusReasonStart DateExpiration DateVisits RequestedVisits [id number] [facility] Advance Directives TypeDate RecordedPatient RepresentativeExplanationACP-Advance DirectiveACP-Power of AttorneyCode StatusDate ActivatedDate InactivatedCommentsFull Code10/15/2014 1:49 PM10/15/2014 8:39 PMFull Code10/15/2014 7:52 AM10/15/2014 1:49 PMFull Code 10/02/2014 10:01 AM10/02/2014 3:29 PMCode StatusDate ActivatedDate Inactivated CommentsFull Code11/24/2022 11:19 AMFull Code09/28/2022 4:15 AM09/30/2022 6:37 PM Full Code10/15/2014 1:49 PM10/15/2014 8:39 PMFull Code10/15/2014 7:52 AM10/15/2014 1:49 PMFull Code10/02/2014 10:01 AM10/02/2014 3:29 PMCode StatusDate Activated Date InactivatedCommentsFull Code12/07/2022 11:24 AMFull Code11/24/2022 11:19 AM 11/25/2022 2:46 AMTypeDate RecordedPatient RepresentativeExplanationACP-Advance Directive12/14/2022 2:27 PMCode StatusDate ActivatedDate InactivatedCommentsFull Code12/07/2022 11:24 AM12/11/2022 1:10 PMFull Code11/24/2022 11:19 AM11/25/2022 2:46 AMFull Code09/28/2022 4:15 AM09/30/2022 6:37 PMFull Code10/15/2014 1:49 PM 10/15/2014 8:39 PMTypeDate RecordedPatient RepresentativeExplanationACP-Advance Directive12/14/2022 2:27 PMCode StatusDate ActivatedDate InactivatedCommentsFull Code12/07/2022 11:24 AM12/11/2022 1:10 PMTypeDate RecordedPatient 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 Livestock 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 ExplanationDurable Power of Zoosvzsi73/7/2022 2:24 PMDNR Physician Order 10/21/2022 2:24 PMLiving Will01/30/2021 12:07 PMDurable Power of Attorney01/30/2021 12:07 PMLiving Will01/29/2021 6:19 AMAdvance Directive01/29/2021 6:18 AMDNR Physician Order11/03/2019 1:27 PMDate ActivatedDate InactivatedComments 11/09/2024 4:30 AMDate ActivatedDate WrilieuaptqVcelqtib16/13/2024 10:46 PM 10/30/2024 6:52 PMDate ActivatedDate ElfprlcncxfKbdyeqma40/9/2024 8:42 AM 08/24/2024 2:23 PMDate ActivatedDate InactivatedComments08/12/2024 3:34 AM 08/14/2024 8:05 PMDate ActivatedDate InactivatedComments06/13/2024 10:07 AM 2024 4:05 PMDate ActivatedDate KgpxsnnrjosQlkokmnq07/26/2024 4:30 AM 11/10/2024 3:17 PMDate ActivatedDate InactivatedComments03/28/2023 5:07 PM 04/01/2023 3:32 PMDate ActivatedDate XaschukmxnhLpgnixcy41/22/2022 8:43 AM 10/06/2022 8:41 PMDate ActivatedDate RuwdbrubdanBqbtnsno09/21/2022 8:37 AM 10/06/2022 8:43 AMDate ActivatedDate InactivatedComments05/26/2022 4:03 PM 05/28/2022 5:26 PMDate ActivatedDate InactivatedComments11/29/2020 4:02 PM 12/01/2020 6:56 PMTypeDate RecordedPatient RepresentativeExplanationDurable Power of Jggxusbt14/7/2022 2:24 PMDNR Physician Order10/21/2022 2:24 PMLiving Will 01/30/2021 12:07 PMDurable Power of Attorney01/30/2021 12:07 PMLiving Will 01/29/2021 6:19 AMAdvance Directive01/29/2021 6:18 AMDNR Physician Order11/03/2019 1:27 PMCode StatusDate ActivatedDate InactivatedCommentsFull Code03/28/2023 5:07 PM04/01/2023 3:32 PMCode StatusDate ActivatedDate InactivatedCommentsDNR Comfort Care Arrest (DNR-CCA) [place]10/06/2022 8:43 AM10/06/2022 8:41 PMFull Code 10/05/2022 8:37 AM10/06/2022 8:43 AMFull Code05/26/2022 4:03 PM05/28/2022 5:26 PM Full Code11/29/2020 4:02 PM12/01/2020 6:56 PMCode StatusDate ActivatedDate InactivatedCommentsFull Code03/28/2023 5:07 PM04/01/2023 3:32 PMCode StatusDate ActivatedDate InactivatedCommentsDNR Comfort Care Arrest (DNR-CCA) [place] 10/06/2022 8:43 AM10/06/2022 8:41 PMFull Code10/05/2022 8:37 AM10/06/2022 8:43 AMFull Code05/26/2022 4:03 PM05/28/2022 5:26 PMFull Code11/29/2020 4:02 PM12/01/2020 6:56 PMDate ActivatedDate InactivatedComments06/13/2024 10:07 AM8 4:05 PM Date ActivatedDate InactivatedComments03/28/2023 5:07 PM04/01/2023 3:32 PMDate ActivatedDate SeuytbajlabLykxjxhn84/22/2022 8:43 AM10/06/2022 8:41 PMDate ActivatedDate NerkkbzcsroZkopmbfp68/21/2022 8:37 AM10/06/2022 8:43 AMDate ActivatedDate InactivatedComments05/26/2022 4:03 PM05/28/2022 5:26 PMDate ActivatedDate InactivatedComments08/12/2024 3:34 AM08/14/2024 8:05 PMDate ActivatedDate InactivatedComments06/13/2024 10:07 AM8 4:05 PMDate ActivatedDate InactivatedComments03/28/2023 5:07 PM04/01/2023 3:32 PMDate ActivatedDate TrhkjgfemrvLrotgghw22/22/2022 8:43 AM10/06/2022 8:41 PMDate ActivatedDate ChasklmywjfGjjgicjf51/21/2022 8:37 AM10/06/2022 8:43 AMDate ActivatedDate TkgvmgkftwzVtklqpgd00/9/2024 8:42 AM08/24/2024 2:23 PMDate ActivatedDate InactivatedComments08/12/2024 3:34 AM08/14/2024 8:05 PMDate ActivatedDate InactivatedComments06/13/2024 10:07 AM2024 4:05 PMDate ActivatedDate InactivatedComments03/28/2023 5:07 PM04/01/2023 3:32 PMDate ActivatedDate ErasetjdlvwAqimfkvo52/22/2022 8:43 AM10/06/2022 8:41 PM Directive Yes / No Effective Date File Name No Information Date ActivatedDate InactivatedComments02/14/2025 11:06 PMDate ActivatedDate InactivatedComments02/12/2025 8:06 PM02/14/2025 10:55 PMDate ActivatedDate RxqavgjulrcMajoqalj57/26/2024 4:30 AM11/10/2024 3:17 PMDate ActivatedDate HspkzethkjxFwkpvuuw79/13/2024 10:46 PM10/30/2024 6:52 PMDate ActivatedDate KjxrksmsengAcjkkvnx06/9/2024 8:42 AM08/24/2024 2:23 PMDate ActivatedDate InactivatedComments02/14/2025 11:06 PM02/24/2025 3:32 PMDate ActivatedDate InactivatedComments02/14/2025 11:06 PM02/24/2025 3:32 PMDate ActivatedDate InactivatedComments02/12/2025 8:06 PM02/14/2025 10:55 PMDate ActivatedDate JgjszeiapisTlsoiacs11/26/2024 4:30 AM11/10/2024 3:17 PMDate ActivatedDate YwjhbwvrulkHrbcruje58/13/2024 10:46 PM10/30/2024 6:52 PMDate ActivatedDate AjipgzccqonAkrgkuwy51/9/2024 8:42 AM08/24/2024 2:23 PMDate ActivatedDate InactivatedComments03/16/2025 3:53 PM03/19/2025 2:00 PMDate ActivatedDate InactivatedComments02/14/2025 11:06 PM02/24/2025 3:32 PMDate ActivatedDate InactivatedComments02/12/2025 8:06 PM02/14/2025 10:55 PMDate ActivatedDate QmcefzqngxzNehhbpuk59/26/2024 4:30 AM11/10/2024 3:17 PMDate ActivatedDate NvexfkxwvqwEidrsydf45/13/2024 10:46 PM10/30/2024 6:52 PMDate ActivatedDate InactivatedComments03/16/2025 3:53 PM03/19/2025 2:00 PMDate ActivatedDate InactivatedComments02/14/2025 11:06 PM02/24/2025 3:32 PMDate ActivatedDate InactivatedComments02/12/2025 8:06 PM02/14/2025 10:55 PMDate ActivatedDate RwbznljpuxlTsyzvqju71/26/2024 4:30 AM11/10/2024 3:17 PMDate ActivatedDate IpyhtjyotslBshdxdwe22/13/2024 10:46 PM10/30/2024 6:52 PMTypeDate RecordedPatient RepresentativeExplanationDurable Power of Attorney03/30/2025 9:23 AMDurable Power of Clrvlmko14/7/2022 2:24 PMDNR Physician Order10/21/2022 2:24 PMLiving Will01/30/2021 12:07 PMDurable Power of Attorney01/30/2021 12:07 PMLiving Will 01/29/2021 6:19 AMAdvance Directive01/29/2021 6:18 AMDNR Physician Order11/03/2019 1:27 PMTypeDate RecordedPatient RepresentativeExplanationDurable Power of Attorney03/30/2025 9:23 AMDurable Power of Umlawkvc84/7/2022 2:24 PMDNR Physician Order10/21/2022 2:24 PMLiving Will01/30/2021 12:07 PMDurable Power of Chef Instructor 01/30/2021 12:07 PMLiving Will01/29/2021 6:19 AMAdvance Directive01/29/2021 6:18 AM DNR Physician Order11/03/2019 1:27 PMDate ActivatedDate InactivatedComments 05/13/2025 2:45 PM05/15/2025 7:30 PMDate ActivatedDate InactivatedComments03/16/2025 3:53 PM03/19/2025 2:00 PMDate ActivatedDate InactivatedComments02/14/2025 11:06 PM 02/24/2025 3:32 PMDate ActivatedDate InactivatedComments02/12/2025 8:06 PM02/14/2025 10:55 PMDate ActivatedDate UtvupcxrsqaTqnuyaxf12/26/2024 4:30 AM11/10/2024 3:17 PMDate ActivatedDate InactivatedComments05/13/2025 2:45 PM05/15/2025 7:30 PMDate ActivatedDate InactivatedComments03/16/2025 3:53 PM03/19/2025 2:00 PMDate Activated Date InactivatedComments02/14/2025 11:06 PM02/24/2025 3:32 PMDate ActivatedDate InactivatedComments02/12/2025 8:06 PM02/14/2025 10:55 PMDate ActivatedDate RpqzaxzjkscYfroydqe65/26/2024 4:30 AM11/10/2024 3:17 PM Advance Directive Response Recorded Date/ Time Advance Directives No June 26, 2025 5:21am Date ActivatedDate InactivatedComments07/02/2025 6:12 PMDate ActivatedDate InactivatedComments07/02/2025 2:38 PM07/02/2025 5:45 PMDate ActivatedDate InactivatedComments06/11/2025 4:30 AM06/13/2025 5:13 PMDate ActivatedDate InactivatedComments05/13/2025 2:45 PM05/15/2025 7:30 PMDate ActivatedDate InactivatedComments03/16/2025 3:53 PM03/19/2025 2:00 PMDate ActivatedDate InactivatedComments07/02/2025 6:12 PM07/05/2025 8:36 PMDate ActivatedDate InactivatedComments07/02/2025 2:38 PM07/02/2025 5:45 PMDate ActivatedDate InactivatedComments06/11/2025 4:30 AM06/13/2025 5:13 PMDate ActivatedDate InactivatedComments05/13/2025 2:45 PM05/15/2025 7:30 PMDate ActivatedDate InactivatedComments03/16/2025 3:53 PM03/19/2025 2:00 PMDate ActivatedDate InactivatedComments07/02/2025 6:12 PM07/05/2025 8:36 PMDate ActivatedDate InactivatedComments07/12/2025 2:37 PMDate ActivatedDate InactivatedComments 07/10/2025 5:33 PM07/12/2025 1:26 PMDate ActivatedDate InactivatedComments 07/02/2025 6:12 PM07/05/2025 8:36 PMDate ActivatedDate InactivatedComments 07/02/2025 2:38 PM07/02/2025 5:45 PMDate ActivatedDate InactivatedComments 06/11/2025 4:30 AM06/13/2025 5:13 PMDate ActivatedDate InactivatedComments 07/12/2025 2:37 PM07/18/2025 2:26 PM Summary Purpose Family History Family Member Type Diagnosis Age At Onset Problem (finding)Family history of Heart DiseaseMotherProblem (finding)Arthritis MotherProblem (finding)CataractsMotherProblem (finding)Diabetes mellitus Reason for Referral SpecialtyDiagnoses / ProceduresReferred By ContactReferred To ContactRadiology Diagnoses Aortic valve stenosis, etiology of cardiac valve disease unspecified Procedures CT CARDIAC W C C MORP CARD ONLY 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 APRN - SEWER CONNECTOR [address] [place] [address] Referral IDStatusReasonVerplanck DateExpiration DateVisits RequestedVisits [id number]/27/20235/27/312658ZgwfqdsnxLnljglvyu / Procedures Referred By ContactReferred To ContactRadiology Diagnoses Aortic valve stenosis, etiology of cardiac valve disease unspecified Procedures CTA CHEST ABDOMEN PELVIS W CONTRAST 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, BRUSH WORKER - [employer] CONNECTOR [address] [place] [address] Referral IDStatusReasonart DateExpiration DateVisits RequestedVisits [id number]/27/20235/27/[id number] / Procedures Referred By ContactReferred To ContactRadiology Diagnoses Malignant neoplasm of upper-outer quadrant of right female breast, unspecified estrogen receptor status (CMS-HCC) Malignant neoplasm of upper-outer quadrant of right breast in female, estrogen receptor positive (CMS-HCC) Procedures PET CT skull to thigh Casimiro Muñoz MD [address] [place] [address] Referral IDStatusReasonStart DateExpiration DateVisits RequestedVisits [id number] Review/ Chief Complaint and Reason for Visit Chief Complaint Admit Date Unknown June 25, 2025 1: 36pm Additional Source Comments INFORMATION SOURCE (unrecogn ized section and content) DATE CREATED AUTHOR 03/27/2021 [facility] DATE CREATED AUTHOR AUTHOR'S ORGANIZ ATION 04/09/2021 [facility] DATE CREATED AUTHOR AUTHOR'S ORGANIZ ATION 04/06/2022 [facility] DATE CREATED AUTHOR AUTHOR'S ORGANIZ ATION 01/22/2023 [facility] DATE CREATED AUTHOR AUTHOR'S ORGANIZ ATION 02/12/2025 [facility] DATE CREATED AUTHOR AUTHOR'S ORGANIZ ATION 06/07/2025 [facility] DATE CREATED AUTHOR AUTHOR'S ORGANIZ ATION 06/29/2025 [facility] DATE CREATED AUTHOR AUTHOR'S ORGANIZ ATION 07/07/2025 [facility] DATE CREATED AUTHOR AUTHOR'S ORGANIZ ATION 07/15/2025 [facility] DATE CREATED AUTHOR AUTHOR'S ORGANIZ ATION 08/06/2025 [facility] DATE CREATED AUTHOR AUTHOR'S ORGANIZ ATION 08/24/2025 [facility] DATE CREATED AUTHOR AUTHOR'S ORGANIZ ATION 09/04/2025 [facility] Reason for Visit (unrecogniz ed section and content) SpecialtyDiagnoses / ProceduresReferred By ContactReferred To Contact [facility] [address] [place] [address] Referral IDStatusReasonStart DateExpiration DateVisits RequestedVisits [id number] IDStatusReasonStart DateExpiration DateVisits RequestedVisits [id number] / ProceduresReferred By ContactReferred To ContactRadiology Diagnoses Aortic valve stenosis, etiology of cardiac valve disease unspecified Procedures CT CARDIAC W C STC MORP CARD ONLY 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, BRUSH WORKER - [employer] CONNE[employer] [address] [place] [address] Referral IDStatusReasonStart DateExpiration DateVisits RequestedVisits [id number]/27/20235/27/033922YjtukjftrIucotukmp / Procedures Referred By ContactReferred To ContactRadiology Diagnoses Aortic valve stenosis, etiology of cardiac valve disease unspecified Procedures CTA CHEST ABDOMEN PELVIS W CONTRAST 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, BRUSH WORKER - [employer] CONNE[employer] [address] [place] [address] Referral IDStatusReasonStart DateExpiration DateVisits RequestedVisits [id number]/27/20235/27/617993ApnqohSztcm DateCommentsHospital Follow-up4ReasonComments[facility] ELEVATED TROPONINReasonCommentstc Oct, [facility]MedicaReasonCommentsFollow-upReasonOnset DateCommentsMed Ibchhx104ReasonCommentsCoughNasal CongestionReason Commentsdischarge / bethezdaReasonCommentsMed RefillReasonOnset DateCommentsMed Dvocje504ReasonOnset DateCommentsMed Hjyvgt054ReasonComments incontinenceReasonOnset DateCommentsTransition Of Care4ReasonComments Med Change RequestReasonCommentstcmReasonOnset DateCommentsMed Smvslz3801/18/2025 ReasonCommentsretaining waterInsomniaReasonOnset DateCommentscritical lab 02/18/2025ReasonCommentsOutpatient InfusionDaptomycinReasonCommentsOutpatient InfusionIV DaptomycinReasonCommentsOutpatient InfusiondaptomycinReasonComments Outpatient InfusionDaptomycinLabs OnlyCbc bmp cpkReasonCommentsfollow upReason CommentsBack PainPt presents via ems for right sided back pain from sciatica. Was here yesterday. Daughter called EMS for transport. Pt denies any SOB or CP, but presents at 90% spo2 on 3L/NC.SpecialtyDiagnoses / ProceduresReferred By ContactReferred To Contact Diagnoses Hypoxia Acute respiratory failure with hypoxia ([facility]) [facility] [address] [place] [address] Phone: tel: fax: Referral IDStatusReasonStart DateExpiration DateVisits RequestedVisits [id number]-xuTuvfutmes, Hairline Fracture of hip. [facility]ReasonCommentsPainReasonOnset Date CommentsOTC Tylenol not ijbgyqt8406/18/2025ReasonOnset DateCommentsAppointment 07/05/2025ReasonOnset DateCommentswants to know if she can do outpatient wants to be wividjtc15/07/2025ReasonOnset OlslTvohxchlTokyvppnzqs57/10/2025ReasonOnset DateCommentsMed Ytnesl1307/30/2025ReasonOnset DateCommentsMed Conufn3308/01/2025 ReasonCommentsPost-opS/P R Femur IMN / no xr / tiny out..Post-opReason CommentsPost-ops/p L proph. IMN hip / no xr / tiny out; 1 month out R IMN hip / xr,Post-opRates pain as 5 and achy Care Teams (unrecognized sec tion and content) Team MemberRelationshipSpecialtyStart DateEnd Date Michael Duarte [facility] Zflwimaa58/15/22Team MemberRelationshipSpecialtyStart Date End Date Michael Duarte P[facility] - [facility] [place] Dxfeldzl05/15/22Team MemberRelationshipSpecialtyStart Date End Date Michael Duarte PCP - GeneralFamily Fmbomaxl00/15/22Team MemberRelationshipSpecialtyStart Date End Date Michael Duarte PCP - GeneralFamily Zvhwrpkq79/15/22Team MemberRelationshipSpecialtyStart Date End Date Michael Duarte PCP - GeneralFamily Cjmknziu24/15/22Team MemberRelationshipSpecialtyStart Date End Date Pam Stinson, BRUSH WORKER - [employer] CONNECTOR [address] [place] [address] PCP - General01/15/23Team MemberRelationshipSpecialtyStart DateEnd Date Pam Stinson, BRUSH WORKER - [employer] CONNECTOR [address] [place] [address] PCP - General01/15/23Team MemberRelationshipSpecialtyStart DateEnd Date Pam Stinson, BRUSH WORKER-SE[employer]ER CONNECTOR [address] [place] [address] PCP - Generalmily Mkktshvz52/14/23Team MemberRelationshipSpecialtyStart Date End Date Pam Stinson BRUSH WORKER-[employer] CONNECTOR [address] [place] [address] PCP - Generalmily Bjecflxj91/14/23Team MemberRelationshipSpecialtyStart Date End Date Pam Stinson BRUSH WORKER-[employer] CONNECTOR [address] [place] [address] PCP - GeneralFamily Medicine11/17/24Team MemberRelationshipSpecialtyStart DateEnd Date Pam Stinson, BRUSH WORKER-SEWER CONNECTOR [address] [place] [address] PCP - GeneralFamily Medicine11/17/24Team MemberRelationshipSpecialtyStart DateEnd Date Pam Stinson BRUSH WORKER-[facility] [address] [place] [address] PCP - GeneralFamily Medicine11/17/24Team MemberRelationshipSpecialtyStart DateEnd Date Pam Stinson BRUSH WORKER-[facility] [address] [place] [address] PCP - Generalmily Kphihpfh79/14/23Team MemberRelationshipSpecialtyStart Date End Date Pam Stinson BRUSH WORKER-[facility] [address] [place] [address] PCP - Generalmily Apkhjzzr68/14/23Team MemberRelationshipSpecialtyStart Date End Date Pam Stinson BRUSH WORKER-[facility] [address] [place] [address] PCP - Generalmily Kahxrldk54/14/23Team MemberRelationshipSpecialtyStart Date End Date Pam Stinson BRUSH WORKER-[facility] [address] [place] [address] PCP - GeneralFamily Yahzwmwg27/14/23Team MemberRelationshipSpecialtyStart Date End Date Pam Stinson BRUSH WORKER-[facility] [address] [place] [address] PCP - Generalmily Uebjgano42/14/23Team MemberRelationshipSpecialtyStart Date End Date Pam Stinson BRUSH WORKER-[facility] [address] [place] [address] P[facility] - [facility] [place] Fvyxgvem00/14/23Team MemberRelationshipSpecialtyStart Date End Date Pam Stinson BRUSH WORKER-[facility] [address] [place] [address] PCP - General acute hospital Vpecqwrc00/14/23Team MemberRelationshipSpecialtyStart Date End Date Pam Stinson BRUSH WORKER-[facility] [address] [place] [address] PCP - [facility] [place] Ngwmnorx71/14/23Team MemberRelationshipSpecialtyStart Date End Date Pam Stinson BRUSH WORKER-[facility] [address] [place] [address] PCP - [facility] [place] Yklojszo19/14/23Team MemberRelationshipSpecialtyStart Date End Date Pam Stinson BRUSH WORKER-[employer]CTOR [address] [place] [address] PCP - [facility] [place] Gteqxihe00/14/23Team MemberRelationshipSpecialtyStart Date End Date Pam Stinson BRUSH WORKER-[facility] [address] [place] [address] PCP - GeneralFamily Rbrrbawv83/14/23Team MemberRelationshipSpecialtyStart Date End Date Pam Stinson BRUSH WORKER-[facility] [address] [place] [address] PCP - GeneralFamily Mxmyetfk19/14/23Team MemberRelationshipSpecialtyStart Date End Date Pam Stinson, BRUSH WORKER-SEW[employer] CONNECTOR [address] [place] [address] PCP - Generalmily Lpjzfhbz47/14/23Team MemberRelationshipSpecialtyStart Date End Date Pam Stinson BRUSH WORKER-[facility] [address] [place] [address] PCP - GeneralFamily Drklpzhq83/14/23Team MemberRelationshipSpecialtyStart Date End Date Pam Stinson BRUSH WORKER-[facility] [address] [place] [address] PCP - Generalmily Mcprquka85/14/23Team MemberRelationshipSpecialtyStart Date End Date Pam Stinson BRUSH WORKER-[employer] [address] [place] [address] PCP - GeneralFamily Yxzohsfy13/14/23Team MemberRelationshipSpecialtyStart Date End Date Pam Stinson BRUSH WORKER-[facility] [address] [place] [address] PCP - GeneralFamily Cwjmkuuh81/14/23Team MemberRelationshipSpecialtyStart Date End Date Pam Stisnon BRUSH WORKER-[facility] [address] [place] [address] PCP - Generalmi Medicine01/11/25Team MemberRelationshipSpecialtyStart DateEnd Date Pam Stinson BRUSH WORKER-[facility] [address] [place] [address] PCP - [facility]01/11/25Team MemberRelationshipSpecialtyStart DateEnd Date Pam Stinson BRUSH WORKER-[facility] [address] [place] [address] PCP - General acute hospital Medicine01/11/25Team MemberRelationshipSpecialtyStart DateEnd Date Pam Stinson BRUSH WORKER-[facility] [address] [place] [address] PCP - General acute hospital Medicine01/11/25 Name Effective Dates (start - stop) Status Members No Information Team MemberRelationshipSpecialtyStart DateEnd Date Pam Stinson BRUSH WORKER-[employer] [address] [place] [address] PCP - [facility]01/11/25Team MemberRelationshipSpecialtyStart DateEnd Date Pam Stinson BRUSH WORKER-[facility] [address] [place] [address] PCP - GeneralFamily Medicine01/11/25Team MemberRelationshipSpecialtyStart DateEnd Date Pam Stinson, BRUSH WORKER-SE[employer] CONNECTOR [address] [place] [address] PCP - GeneralFamily Medicine01/11/25Team MemberRelationshipSpecialtyStart DateEnd Date Pam Stinson, BRUSH WORKER-[employer] CONNECTOR [address] [place] [address] PCP - Generalmily Medicine01/11/25Team MemberRelationshipSpecialtyStart DateEnd Date Pam Stinson, BRUSH WORKER-SEW[employer] CONNECTOR [address] [place] [address] PCP - GeneralFamily Medicine01/11/25Team MemberRelationshipSpecialtyStart DateEnd Date Pam Stinson, BRUSH WORKER-SE[employer]ER CONNECTOR [address] [place] [address] PCP - GeneralFamily Medicine03/16/25Team MemberRelationshipSpecialtyStart DateEnd Date Pam Stinson, BRUSH WORKER-[employer] CONNECTOR [address] [place] [address] PCP - GeneralFamily Medicine03/16/25Team MemberRelationshipSpecialtyStart DateEnd Date Pam Stinson, BRUSH WORKER-SEWER CONNECTOR [address] [place] [address] PCP - GeneralFamily Medicine03/16/25Team MemberRelationshipSpecialtyStart DateEnd Date Pam Stinson, BRUSH WORKER-[facility] [address] [place] [address] PCP - Generalmily Medicine03/16/25Team MemberRelationshipSpecialtyStart DateEnd Date Pam Stinson, BRUSH WORKER-[facility] [address] [place] [address] PCP - Generalmily Medicine03/16/25Team MemberRelationshipSpecialtyStart DateEnd Date Pam Stinson, BRUSH WORKER-[facility] [address] [place] [address] PCP - Generalmily Medicine03/16/25Team MemberRelationshipSpecialtyStart DateEnd Date Pam Stinson, BRUSH WORKER-[facility] [address] [place] [address] PCP - Generalmily Medicine03/16/25Team MemberRelationshipSpecialtyStart DateEnd Date Pam Stinson, BRUSH WORKER-[facility] [address] [place] [address] PCP - Generalmily Medicine03/16/25Team MemberRelationshipSpecialtyStart DateEnd Date Pam Stinson, BRUSH WORKER-[facility] [address] 05/[address]25 [place] [address] PCP - GeneralFamily Medicine05/14/25Team MemberRelationshipSpecialtyStart DateEnd Date Vj Gray, BRUSH WORKER-SEW[employer] CONNECTOR [address] [place] [address] PCP - GeneralNurse Practitioner05/30/25Team MemberRelationshipSpecialtyStart Date End Date Unallocated, Noms ProviderMD [address] [place] [address] PCP - GeneralFamily Medicine06/06/25Team MemberRelationshipSpecialtyStart DateEnd Date Unallocated, Andrea Javed MD [address] [place], [place] [address] [address] PCP - GeneralFamily Medicine06/06/25Team MemberRelationshipSpecialtyStart DateEnd Date Unallocated, Nombeatrice ProviderMD [address] [place] [address], [place] [address] PCP - Generalmily Medicine06/06/25 Team Status: Inactive Member Role Status Dates Ra Maravilla , Attending Provider Active S tart: June 25, 2025 End: June 25, 2025Team MemberRelationshipSpecialtyStart DateEnd Date Vj Gray, BRUSH WORKER-[employer] CONNECTOR [address] [place] [address] PCP - GeneralNurse Practitioner05/30/25Team MemberRelationshipSpecialtyStart Date End Date Vj Gray, BRUSH WORKER-[employer] CONNECTOR [address] [place] [address] PCP - GeneralNurse Practitioner05/30/25Team MemberRelationshipSpecialtyStart Date End Date Vj Gray, BRUSH WORKER-SEWER CONNECTOR [address] [place] [address] PCP - GeneralNurse Practitioner05/30/25Te MemberRelationshipSpecialtyStart Date End Date Unallocated, Noms MD Tegan [facility] [place] [address] PCP - Generalmily Medicine06/06/25Team MemberRelationshipSpecialtyStart DateEnd Date Unallocated, Noms MD Tegan [address] [place] [address] [facility]06/06/25Team MemberRelationshipSpecialtyStart DateEnd Date Unallocated, Noms MD Tegan [address] [place] [address] P[facility] - [facility]06/06/25Team MemberRelationshipSpecialtyStart DateEnd Date Vj Gray, BRUSH WORKER-[facility] [address] [place] [address] PCP - GeneralNurse Practitioner05/30/25Team MemberRelationshipSpecialtyStart Date End Date Vj Gray, BRUSH WORKER-[facility] [address] [place] [address] PCP - GeneralNurse Practitioner05/30/25Team MemberRelationshipSpecialtyStart Date End Date Vj Gray, BRUSH WORKER-[facility] [address] [place] [address] PCP - GeneralNurse Practitioner05/30/25Team MemberRelationshipSpecialtyStart Date End Date Vj Gray, BRUSH WORKER-[employer] [address] [place] [address] PCP - GeneralNurse Practitioner7Team MemberRelationshipSpecialtyStart Date End Date Vj Gray, BRUSH WORKER-[employer] [address] [place] [address] PCP - GeneralNurse Practitioner7Team MemberRelationshipSpecialtyStart Date End Date Vj Gray, BRUSH WORKER-[employer]CTOR [address] [place] [address] PCP - GeneralNurse Practitioner7Team MemberRelationshipSpecialtyStart Date End Date Vj Gray, BRUSH WORKER-[employer]CTOR [address] [place] [address] PCP - GeneralNurse Practitioner05/30/25Team MemberRelationshipSpecialtyStart Date End Date Vj Gray, BRUSH WORKER-[employer] CONNECTOR [address] [place] [address] PCP - GeneralNurse Practitioner7Team MemberRelationshipSpecialtyStart Date End Date Vj Gray, BRUSH WORKER-[employer] [address] [place] [address] PCP - GeneralNurse Practitioner7Team MemberRelationshipSpecialtyStart Date End Date Vj Gray, BRUSH WORKER-[employer] CONNECTOR [address] [place] [address] PCP - GeneralNurse Practitioner05/30/25Te MemberRelationshipSpecialtyStart Date End Date [facility]j [facility] [address] [place] [address] [facility] [place] [place] Practitioner7Te MemberRelationshipSpecialtyStart Date End Date LatoyainderVj Vicki, [facility] [address] [place] [address] PCP - [facility] [place] Practitioner05/30/25Te MemberRelationshipSpecialtyStart Date End Date ChrisVj quinones, [facility] [address] [place] [address] PCP - [facility] [place] Practitioner05/30/25Team MemberRelationshipSpecialtyStart Date End Date LatoyainderVj Vicki, [facility] [address] [place] [address] PCP - [facility] [place] Practitioner05/30/25 Ordered Prescriptions (unrec ognized section and content) PrescriptionSigDispensedRefillsStart DateEnd Date clopidogrel (PLAVIX) 75 MG tablet Take 1 tablet by mouth daily 30 tablet Scheduled Active and Recently Administ ered Medications (unrecognized section and content) Medication Order// aspirin chewable tablet 81 mg 81 mg, Oral, DAILY, First dose on Wed12/08/22 at 0900, Until Discontinued * 0926 (Given - Provider: Jacqueline Medina RN) * 0802 (Given - Provider: Jacqueline Medina RN) * 0846 (Given - Provider: Stefanie Lu, GABBY) atorvastatin (LIPITOR) tablet 80 mg 80 mg, Oral, NIGHTLY, First dose on Wed12/07/22 at 2100, Until Discontinued * 2024 (Given - Provider: Tamika Villavicencio, GABBY) * 1956 (Given - Provider: Libia Lyons, RN) * 2100 (Due) clopidogrel (PLAVIX) tablet 75 mg 75 mg, Oral, DAILY, First dose on Wed12/08/22 at 0900, Until Discontinued * 925 (Given - Provider: Jacqueline Medina, GABBY) * 0802 (Given - Provider: Jacqueline Medina, GABBY) * 0846 (Given - Provider: Stefanie Lu RN) insulin glargine (LANTUS) injection vial 10 Units 10 Units, SubCUTAneous, NIGHTLY, First dose (after last modification) on Wed12/11/22 at 2100, UntilDiscontinued, Substituted for Levemir * 2099 (Due) insulin glargine (LANTUS) injection vial 20 Units (CANCELED) 20 Units, SubCUTAneous, NIGHTLY, First dose on Wed12/07/22 at 2100, Until Discontinued, Substitutedfor Levemir * 2124 (Given - Provider: Tamika Villavicencio RN) polyethylene glycol (GLYCOLAX) packet 17 g (CANCELED) 17 g, Oral, DAILY, First dose on Wed12/09/22 at 2100, Until Discontinued, Stir and dissolve one packet of powder (17 g) in any 4 to 8 ounces of beverage (cold, hot or room temperature) then drink * 2124 (Given - Provider: Tamika Villavicencio, GABBY) sertraline (ZOLOFT) tablet 100 mg 100 mg, Oral, DAILY, First dose on Wed12/07/22 at 1645, Until Discontinued * 925 (Given - Provider: Jacqueline Medina, GABBY) * 0802 (Given - Provider: Jacqueline Medina, GABBY) * 0846 (Given - Provider: Stefanie Lu RN) sodium chloride flush 0.9 % injection 5-40 mL 5-40 mL, IntraVENous, EVERY 12 HOURS SCHEDULED (2 times per day), First dose on 1/23/23 at 2100, Until Discontinued, For Line Patency: Peripheral IV = 5 mL; Midline or Central Line = 10 mL/lumen.If following IV push medication, administer flush at same rate as the IV push. Flush volume is determined by type of infusion therapy being given. For non-viscous solutions use: Peripheral IV = 5 mL Midline or Central Line = 10 mL/lumen For viscous solutions (i.e. blood components, parenteral nutrition, contrast media, or after obtaining blood sample) use: Peripheral IV = 10 mL Midline or CentralLine = 20 mL/lumen, Recovery(Cath) * 0952 (Not Given - Provider: Jacqueline Medina RN - Reason: IV Fluid Infusing) * 2005 (Not Given - Provider: Tamika Villavicencio RN - Reason: IV Fluid Infusing) * 08 (Not Given - Provider: Jacqueline Medina RN - Reason: IV Fluid Infusing) * 1956 (Given - Provider: Libia Lyons RN) * 0847 (Given - Provider: Stefanie Lu RN) * 2099 (Due) Medication Order// 0.9 % sodium chloride infusion (CANCELED) IntraVENous, at 75 mL/hr, CONTINUOUS, Starting on Wed12/07/22 at 1145, Pre-Procedure(Cath) * 0328 (New Bag - Provider: Tamika Villavicencio RN) * 0329 (Paused - Provider: Tamika Villavicencio RN) * 0329 (Restarted - Provider: Tamika Villavicencio RN) * 0638 (Rate/Dose Verify - Provider: Tamika Villavicencio RN) * 1301 (Stopped - Provider: Tamika Villavicencio RN) * 1849 (New Bag - Provider: Jacqueline Medina, GABBY) * 195 (New Bag - Provider: Tamika Villavicencio, GABBY) * 0605 (Rate/Dose Verify - Provider: Tamika Villavicencio RN) * 0959 (Stopped - Provider: Stefanie Lu RN) Medication Order// 0.9 % sodium chloride infusion IntraVENous, at [...] is 4000 mg from all sources in 24hours., Recovery(Cath) * 0947 (Given - Provider: Jacqueline Medina RN) bisacodyl (DULCOLAX) EC tablet 10 mg 10 mg, Oral, DAILY PRN, Starting on Wed12/09/22 at 2143, Until Discontinued, Constipation, Do not crush or break. * 2300 (Given - Provider: Tamika Villavicencio RN) [...] 12/10/22 at 0823, Repeat blood glucose in 15minutes. If blood glucose remains LESS THAN 70 mg/dL, repeat treatment and recheck blood glucose in15 minutes x 2. If using glycemic management [...] at 100 mL/hr. Repeat blood glucose in 15minutes x 2 and notify provider. glucose chewable tablet 16 g 16 g (4 tablet), Oral, PRN, Starting on Wed12/10/22 at 0823, Until Discontinued, Low blood sugar, If blood glucose is LESS THAN 70 mg/dL and patient is alert and tolerating oral. Give 4 tablets (16g)Repeat blood glucose in 15 minutes. If blood [...] For viscous solutions (i.e. blood components, parenteral nutrition,contrast media, or after obtaining blood sample) use: Peripheral IV = 10 mL Midline or Central Line= 20 mL/lumen, Recovery(Cath) Order Group 1: dextrose bolus 10% 125 [...] 10% at 100 mL/hour and notify provider.
Medication Order///11/2022 0.9 % sodium chloride infusion IntraVENous, at 75 mL/hr, CONTINUOUS, Starting on Wed01/13/23 at 0730, For 9 hours, Please hydrate pt for [address] and 6 hours post imaging. Hydration to start at 0730, CT imaging planned for 1030. Fany PIERRE will be bringing pt back and for the from to [facility] as needed for addt'l testing throughout the day. Pt will finish day in for final hours of hydration., Pre-Procedure(Cath) * 0750 (New Bag - Provider: CONSTANTINO SINGH) * 1653 (Stopped - Provider: CONSTANTINO SINGH) Medication Order///11/2024 doxycycline (VIBRAMYCIN) capsule 100 mg 100 mg, oral, 2 times daily, First dose on Wed05/14/25 at 1115, For 5 days, Indication: Community-acquired pneumonia * 1156 (Given - Provider: Migue Douglas RN) * 2133 (Given - Provider: Ely Riddle RN) * 0901 (Given - Provider: Migue Douglas RN) ferrous sulfate tablet 325 mg 325 mg, oral, Daily with breakfast, First dose on Wed05/14/25 at 1330, Give ferrous sulfate 2 hoursbefore or 4 hours after antacids. * 1527 (Given - Provider: Migue Douglas RN) * 0901 (Given - Provider: Migue Douglas RN) furosemide (LASIX) tablet 20 mg 20 mg, oral, Daily, First dose on Wed05/14/25 at 1115, Look-alike/sound-alike medication - verify indication for use. * 1156 (Given - Provider: Migue Douglas RN) * 0900 (Given - Provider: Migue Douglas RN) gabapentin (NEURONTIN) capsule 300 mg 300 mg, oral, Daily, First dose on Wed05/14/25 at 0900, Look-alike/sound-alike medication - verify indication for use. * 0843 (Given - Provider: Migue Douglas RN) * 0900 (Given - Provider: Migue Douglas RN) gabapentin (NEURONTIN) capsule 600 mg 600 mg, oral, Nightly, First dose on Wed05/14/25 at 2200, Look-alike/sound-alike medication - verify indication for use. * 2132 (Given - Provider: Ely Riddle RN) heparin (porcine) injection 5,000 Units 5,000 Units, subcutaneous, Every 8 hours scheduled, First dose on Wed05/14/25 at 0600, Scheduling/ADT, Notify prescriber if INR greater than 1.9, hemoglobin less than 10 mg/dL, aPTT greater than 40 seconds, and/or platelet count less than 100,000/mm Look-alike/sound-alike medication - verify indication for use. Observe for bleeding. * 0600 (Not Given - Provider: Genoveva Medley RN - Reason: Patient/family refused) * 1402 (Given - Provider: Migue Douglas RN) * 2133 (Given - Provider: Ely Riddle, GABBY) * 0524 (Given - Provider: Ely Riddle, GABBY) * 1436 (Given - Provider: Migue Douglas RN) insulin lispro (HumaLOG) injection 2-10 Units 2-10 Units, subcutaneous, 3 times daily with meals, First dose on Wed05/13/25 at 1700, Scheduling/ADT, Daytime hyperglycemia dosing. For blood glucose 151-200 mg/dL, give 2 units. For blood glucose 201-250 mg/dL, give 4 units. For blood glucose 251-300 mg/dL, give 6 units. For blood glucose 301-350mg/dL, give 8 units. For blood glucose 351-400 mg/dL, give 10 units. Give even if NPO or meals skipped. Do NOT give more often then every 4 hours when NPO. Notify prescriber if blood glucose greater than 400 mg/dL. Look-alike/sound-alike medication - verify indication for use. Prime with 2 units ofinsulin prior to administration. Prandial/supplemental Insulin. Pre-filled pens stable 28 days at room temperature. Insulin lispro should be administered within 15 minutes before or immediately aftera meal. * 1700 (Not Given - Provider: Cristóbal Becerra RN - Reason: Order parameters not met - Comment: [id number]) * 0800 (Not Given - Provider: Migue Douglas RN - Reason: Order parameters not met - Comment: 148 met panel) * 1226 (Given - Provider: Migue Douglas RN - Comment: 223) * 1651 (Given - Provider: Migue Douglas RN - Comment: 309) * 0902 (Given - Provider: Migue Douglas RN - Comment: 152 met panel) * 1102 (Given - Provider: Migue Douglas RN - Comment: 320) * 1700 (Due) insulin lispro (HumaLOG) injection 2-8 Units 2-8 Units, subcutaneous, Nightly, First dose on 05/13/25 at 2200, Scheduling/ADT, Bedtime hyperglycemia dosing. For blood glucose 201-250 mg/dL, give 2 units. For blood glucose 251-300 mg/dL, give4 units. For blood glucose 301-350 mg/dL, give 6 units. For blood glucose 351-400 mg/dL, give 8 units. Give even if NPO or meals skipped. Do NOT give more often then every 4 hours when NPO. Notify prescriber if blood glucose greater than 400 mg/dL. Look-alike/sound-alike medication - verify indication for use. Prime with 2 units of insulin prior to administration. Prandial/supplemental Insulin. Pre- filled pens stable 28 days at room temperature. Insulin lispro should be administered within 15 minutes before or immediately after a meal. * 2214 (Given - Provider: Genoveva Medley RN) * 2135 (Given - Provider: Ely Riddle RN) insulin regular (HumuLIN R,NovoLIN R) injection 10 Units (COMPLETED) 10 Units, subcutaneous, Once, On 05/13/25 at 1505, For 1 dose, Look-alike/sound-alike medication- verify indication for use. Prandial/supplemental insulin. Stable for 28 days at room temperature. * 1505 (Given - Provider: Peggy Ledesma RN - Comment: no med labels in pyxis) magnesium oxide (MAGOX) tablet 400 mg 400 mg, oral, Daily, First dose on Wed05/14/25 at 1330 * 1527 (Given - Provider: Migue Douglas RN) * 0901 (Given - Provider: Migue Douglas RN) mirtazapine (REMERON) tablet 7.5 mg 7.5 mg, oral, Nightly, First dose on Wed05/14/25 at 0145 * 0158 (Given - Provider: Genoveva Medley RN) * 2133 (Given - Provider: Ely Riddle RN) piperacillin-tazobactam (ZOSYN) IVPB 3.375 g/50 mL in iso-osmotic dextrose (67.5 mg/mL premix) (CANCELED) 3.375 g, intravenous, at 12.5 mL/hr, Administer over 4 Hours, Every 8 hours, First dose on Wed05/13/25 at 1600, Scheduling/ADT, Start 4 hours after 4.5gram dose, Indication: Sepsis * 1732 (New Bag - Provider: Shaista Cooley RN) * 1833 (Rate/Dose Verify - Provider: Cristóbal Becerra RN) * 1835 (Rate/Dose Verify - Provider: Cristóbal Becerra RN) * 1857 (Paused - Provider: Migue Douglas RN) * 190 (Restarted - Provider: Migue Douglas RN) * 190 (Paused - Provider: Migue Douglas RN) * 191 (Restarted - Provider: Migue Douglas RN) * 1952 (Paused - Provider: Migue Douglas RN) * 1954 (Restarted - Provider: Migue Douglas RN) * 2000 (Paused - Provider: Migue Douglas RN) * 2009 (Restarted - Provider: Migue Douglas RN) * 2024 (Stop Bag - Provider: Migue Douglas RN) * 2132 (Stop Bag - Provider: Genoveva Medley RN) * 0038 (New Bag - Provider: Genoveva Medley RN) * 0357 (Stop Bag - Provider: Migue Douglas RN) * 0401 (Stop Bag - Provider: Migue Douglas RN) * 0438 (Stop Bag - Provider: Genoveva Medley RN) * 0842 (New Bag - Provider: Migue Douglas RN) * 0910 (Stop Bag - Provider: Migue Douglas RN) * 1103 (Not Given - Provider: Migue Douglas RN [...] of antibiotics., Indication: Other, Specify: Unknown Source * 1154 (New Bag - Provider: Peggy Ledesma RN) * 1325 (Stop Bag - Provider: Peggy Ledesma RN) sertraline (ZOLOFT) tablet 100 mg 100 mg, oral, Daily, First dose on Wed05/14/25 at 0900, Look-alike/sound-alike medication - verify indication for use. * 0843 (Given - Provider: Migue Douglas RN) * 0901 (Given - Provider: Migue Douglas RN) sodium chloride 0.9 % bolus (COMPLETED) 1,710 mL (30 mL/kg 57 kg [place] weight), intravenous, at 1,682 mL/hr, Administer over 61 Minutes, Once, On Wed05/13/25 at 1110, For 1 dose * 1140 (New Bag - Provider: Peggy Ledesma RN - Comment: exceeds pump max rate) * 1536 (Stop Bag - Provider: Peggy Ledesma RN) traZODone (DESYREL) tablet 100 mg 100 mg, oral, Nightly, First dose on Wed05/14/25 at 0145, Look-alike/sound-alike medication - verify indication for use. * 0158 (Given - Provider: Genoveva Medley RN) * 2133 (Given - Provider: Ely Riddle, GABBY) vancomycin (VANCOCIN) 1,750 mg in sodium chloride 0.9 % 500 mL IVPB W/ADAPTER (COMPLETED)(Linked Group 1) 1,750 mg (rounded from 1,714 mg = 20 mg/kg 85.7 kg), intravenous, at 250 mL/hr, Administer over 120Minutes, Once, On 05/13/25 at 1140, For 1 dose, Administer vancomycin after piperacillin/tazobactam as long as this does not significantly delay start of antibiotics For Vial-2-Bag: Attach bag andvial to adapter - Use immediately after activating; dissolve drug prior to administration., Indicati on: Other, Specify: Unknown Source * 1326 (New Bag - Provider: Peggy Ledesma RN) * 1329 (Paused - Provider: Cristóbal Becerra RN) * 1332 (Restarted - Provider: Cristóbal Becerra RN) * 1434 (Paused - Provider: Cristóbal Becerra, GABBY) * 1533 (Restarted - Provider: Cristóbal Becerra, GABBY) * 1537 (Continue to Inpatient Floor - Provider: Peggy Ledesma RN) * 1601 (Paused - Provider: Cristóbal Becerra, GABBY) * 1602 (Paused - Provider: Cristóbal Becerra, GABBY) * 1612 (Restarted - Provider: Cristóbal Becerra, GABBY) * 1645 (Stop Bag - Provider: Cristóbal Becerra, GABBY) Medication Order05/13////11/2024 sodium chloride 0.9 % infusion (CANCELED) 75 mL/hr, intravenous, Continuous, Starting on 05/13/25 at 1450, Scheduling/ADT * 1727 (New Bag - Provider: Shaista Cooley RN) * 1833 (Rate/Dose Verify - Provider: Cristóbal Becerra RN) * 183 (Rate/Dose Verify - Provider: Cristóbal Becerra, GABBY) * 2029 (Paused - Provider: Migue Douglas RN) * 2033 (Restarted - Provider: Migue Douglas RN) * 2040 (Stop Bag - Provider: Migue Douglas RN) * 2042 (Stop Bag - Provider: Genoveva Medley RN - Comment: loss of IV access) * 214 (New Bag - Provider: Genoveva Medley RN) * 0732 (Stop Bag - Provider: Migue Douglas RN) * 0732 (New Bag - Provider: Migue Douglas RN) * 0910 (Stop Bag - Provider: Migue Douglas RN) * 1224 (New Bag - Provider: Migue Douglas RN) * 1333 (Rate/Dose Verify - Provider: Migue Douglas RN) * 1525 (Rate/Dose Verify - Provider: Migue Douglas RN) Medication Order05/13////11/2024 acetaminophen (TYLENOL) tablet 650 mg 650 mg, oral, Every 4 hours PRN, mild pain - pain scale 1-3, temperature greater than 38 C, headaches, Temperature greater than 38.3 C, Starting on Wed05/13/25 at 1445, Scheduling/ADT, [Warning: Total Acetaminophen not to exceed more than 4 grams (4000 mg) in 24 hours] * 2032 (Given - Provider: Genoveva Medley RN) [...] 4 Hours, As needed, ionized calcium 3.4 mg/dLor less, Starting on Wed05/14/25 at 1011, IV [...] glucose less than 70 mg/dL and unconscious orNPO with IV access, Starting on 05/13/25 at 1445, Scheduling/ADT, Push over 1-3 minutes STAT. Ifconscious and not NPO, immediately follow with meal [...] at 1445, Scheduling/ADT, If conscious and not NPO,immediately follow with meal tray or high protein [...] complete. With each magnesium result continue the replacementorders as needed. * 1224 (New Bag - Provider: Migue Douglas, RN) * 1424 (Stop Bag - Provider: Migue Douglas, GABBY) magnesium sulfate IVPB 4000 mg/100 mL in iso-osmotic water (40 mg/mL premix) 4,000 mg, intravenous, at 25 mL/hr, Administer over 240 Minutes, As needed, Magnesium level 1.6 mg/dL or less, or Ionized Magnesium level 0.44 mmol/L or less, Starting on Wed05/14/25 at 1011, Recheckmagnesium level 4 hours after infusion complete. With [...] Supplementation, Starting on Wed05/14/25 at 1011, Progress tooral potassium replacement when patient tolerating oral intake. [...] Supplementation, Starting on Wed05/14/25 at 1011, Progress tooral potassium replacement when patient tolerating oral intake. [...] intermittent use, Starting on Wed05/13/25 at 1034 * 0900 (Given - Provider: Migue Douglas RN) sodium chloride 0.9 % flush bag 25 mL, intravenous, at 100 mL/hr, Administer over 15 Minutes, As needed, line care, line care afterIVPB administration, Starting on Wed05/13/25 at 1445, Scheduling/ADT [...] Look-alike/sound-alike medication - verify indication for use. * 0202 (Given - Provider: Genoveva Medley RN) Order Group 1: piperacillin-tazobactam (ZOSYN) IVPB 4.5 [...] kg), intravenous, at 250 mL/hr, Administer over 120Minutes, Once, On Wed05/13/25 at 1140, For 1 dose, Administer vancomycin after piperacillin/tazobactam as long as this does not significantly delay start of antibiotics For Vial-2-Bag: Attach bag andvial to adapter - Use immediately after activating; dissolve drug prior to administration., Indicati on: Other, Specify: Unknown Source Group 2: potassium chloride (K-TAB,KLOR-CON) CR tablet 30-50 mEqJump to med 30-50 mEq, oral, As needed, Potassium Supplementation, Starting on Wed05/14/25 at 1011, Progress tooral potassium replacement when patient tolerating oral intake. [...] Supplementation, Starting on Wed05/14/25 at 1011, Progress tooral potassium replacement when patient tolerating oral intake. [...] Give with a full glass of water. Medication Order07/03//// busPIRone (BUSPAR) tablet 5 mg 5 mg, oral, 3 times daily, First dose on Wed07/04/25 at 1400, Hold for sedation Look-alike/sound-alike medication - verify indication for use. Avoid grapefruit juice. * 1312 (Given - Provider: Cesilia Hand RN) * 2037 (Given - Provider: Kristy Galarza, GABBY) * 0551 (Given - Provider: Kristy Galarza, GABBY) * 1418 (Given - Provider: Tanya Rodriguez RN) cefTRIAXone (ROCEPHIN) 1,000 mg in sodium chloride 0.9 % 50 mL IVPB W/ADAPTER (CANCELED) 1,000 mg, intravenous, at 100 mL/hr, Administer over 30 Minutes, Every 24 hours, First dose on Wed07/02/25 at 1815, For Vial-2-Bag: Attach bag and vial to adapter - Use immediately after activating; dissolve drug prior to administration., Indication: UTI * 1809 (New Bag - Provider: Cesilia Hand RN) * 1839 (Stop Bag - Provider: Kristy Galarza RN) cyanocobalamin tablet 1,000 mcg 1,000 mcg, oral, Daily, First dose on Wed07/02/25 at 1815 * 0852 (Given - Provider: Cesilia Hand RN) * 0930 (Given - Provider: Cesilia Hand RN) * 0904 (Given - Provider: Tanya Rodriguez, RN) enoxaparin (LOVENOX) syringe 40 mg 40 mg, subcutaneous, Daily, First dose on Wed07/03/25 at 0600, When Creatinine Clearance 30 mL/min or greater Look-alike/sound-alike medication - verify indication for use. * 0600 (Given - Provider: Kristy Galarza, GABBY) * 0520 (Given - Provider: Kristy Galarza, RN) * 0551 (Given - Provider: Kristy Galarza, RN) ferrous sulfate tablet 325 mg 325 mg, oral, 2 times daily with meals, First dose (after last modification) on Wed07/03/25 at 0800, Give ferrous sulfate 2 hours before or 4 hours after antacids. * 0852 (Given - Provider: Cesilia Hand RN) * 1758 (Given - Provider: Cesilia Hand RN) * 0930 (Given - Provider: Cesilia Hand, GABBY) * 1659 (Given - Provider: Amy Simms RN) * 0904 (Given - Provider: Tanya Rodriguez, RN) * 1700 (Not Given - Provider: Tanya Rodriguez, GABBY - Reason: Patient/family refused) insulin glargine (LANTUS, [...] pens stable 28 days at room temperature. * 2019 (Given - Provider: Kristy Galarza RN) * 2037 (Given - Provider: Kristy Galarza RN) [...] of insulin prior to administration. Prandial/supplemental Insulin. Pre- filled pens stable 28 days at room temperature. Insulin lispro should be a dministered within 15 minutes before or immediately after a meal. * 2023 (Not Given - Provider: Kristy Galarza RN - Reason: Order parameters not met) * 2099 (Not Given - Provider: Kristy Galarza [...] if NPO or meals skipped. Do NOT givemore often then every 4 hours when NPO. Look-alike/sound-alike medication - verify indication for use. Prime with 2 units of insulin prior to administration. Prandial/supplemental Insulin. Pre-filledpens stable 28 days at room temperature. Insulin lispro should be administered within 15 minutes before or immediately after a meal. * 0800 (Not Given - Provider: Cesilia Hand RN - Reason: Order parameters not met) * 1152 (Given - Provider: Cesilia Hand RN) * 1700 (Not Given - Provider: Cesilia Hand RN - Reason: Order parameters not met) * 0800 (Not Given - Provider: Cesilia Hand RN - Reason: Order parameters not met) * 1251 (Given - Provider: Cesilia Hand RN) * 1649 (Given - Provider: Amy Simms RN) * 0800 (Not Given - Provider: Tanya Rodriguez RN - Reason: Order parameters not met) * 1225 (Given - Provider: Tanya Rodriguez RN) * 1751 (Given - Provider: Tanya Rodriguez RN) magnesium oxide (MAGOX) tablet 400 mg 400 mg, oral, Daily, First dose on Wed07/02/25 at 1815 * 0852 (Given - Provider: Cesilia Hand RN) * 0930 (Given - Provider: Cesilia Hand RN) * 0904 (Given - Provider: Tanya Rodriguez RN) polyethylene glycol (GLYCOLAX) packet 17 g 17 g, oral, Daily, First dose on Wed07/03/25 at 0900, Look-alike/sound-alike medication - verify indication for use. Dissolve 1 packet (17 gm) in 8 ounces of water, juice, soda, coffee or tea. * 1152 (Given - Provider: Cesilia Hand RN) * 0931 (Given - Provider: Cesilia Hand RN) * 0905 (Not Given - Provider: Tanya Rodriguez RN - Reason: Patient/family refused) sertraline (ZOLOFT) tablet 100 mg 100 mg, oral, Daily, First dose on Wed07/02/25 at 1815, Look-alike/sound-alike medication - verify indication for use. * 0852 (Given - Provider: Cesilia Hand RN) * 0930 (Given - Provider: Cesilia Hand RN) * 0904 (Given - Provider: Tanya Rodriguez RN) sodium chloride 0.9 % flush 3 mL 3 mL, intravenous, Every 12 hours scheduled, First dose on Wed07/02/25 at 2100 * 0853 (Given - Provider: Cesilia Hand RN) * 2100 (Not Given - Provider: Kristy Galarza RN - Reason: IV infusing) * 0931 (Given - Provider: Cesilia Hand RN) * 2100 (Not Given - Provider: Kristy Galarza RN - Reason: IV infusing) * 0900 (Not Given - Provider: Tanya Rodriguez RN - Reason: Loss of IV access) traZODone (DESYREL) tablet 100 mg 100 mg, oral, Nightly, First dose on Wed07/02/25 at 2200, Look-alike/sound-alike medication - verify indication for use. * 2019 (Given - Provider: Kristy Galarza, RN) * 2037 (Given - Provider: Kristy Galarza RN) Medication Order/// sodium chloride 0.9 % infusion () 50 mL/hr, intravenous, Continuous, Starting on Wed07/02/25 at 1815, For 1 day * 175 (New Bag - Provider: Cesilia Hand RN - Comment: [Order ends at this time. Document the following action when infusion is complete: Stop Bag]) * 2046 (Stop Bag - Provider: Kristy Galarza RN - Comment: [Order ends at this time. Document the following action when infusion is complete: Stop Bag]) Medication Order/// acetaminophen (TYLENOL) tablet 650 mg 650 mg, oral, Every 4 hours PRN, mild pain - pain scale 1-3, headaches, Temperature greater than 38.3 C, Starting on Wed07/02/25 at 1811, [Warning: Total Acetaminophen not to exceed more than 4 grams(4000 mg) in 24 hours] alum-mag hydroxide-simeth (MAALOX) 200-200-20 mg/5 mL suspension 30 mL 30 mL, oral, 4 times daily after meals and at bedtime as needed, dyspepsia, Starting on Wed07/02/25at 1811, Look-alike/sound-alike medication - verify indication for use. Shake well., Indications: dyspepsia calcium gluconate 2,000 mg in sodium chloride 0.9 % 100 mL IVPB 2,000 mg, intravenous, at 60 mL/hr, Administer over 2 Hours, As needed, ionized calcium 4 to 4.3 mg/dL, Starting on Wed07/02/25 at 181, IV Administration of calcium via a central or deep vein preferred. Avoid administration in small hand veins VESICANT (RED) calcium gluconate 3,000 mg in sodium chloride 0.9 % 100 mL IVPB 3,000 mg, intravenous, at 43.3 mL/hr, Administer over 3 Hours, As needed, ionized calcium 3.5 to 3.9 mg/dL, Starting on Wed07/02/25 at 181, IV Administration of calcium via a central or deep vein preferred. Avoid administration in small hand veins VESICANT (RED) calcium gluconate 4,000 mg in sodium chloride 0.9 % 250 mL IVPB 4,000 mg, intravenous, at 72.5 mL/hr, Administer over 4 Hours, As needed, ionized calcium 3.4 mg/dLor less, Starting on Wed07/02/25 at 181, IV administration of calcium via a central or deep vein is preferred. Avoid administration in small hand veins. VESICANT (RED) dextrose (GLUTOSE) 40 % gel 15 g 15 g, oral, As needed, low blood sugar, blood glucose less than 70 mg/dL, Starting on Wed07/02/25 at 1810, If patient conscious and taking PO. If blood glucose is not greater than 70 mg/dL after initial treatment, repeat treatment. dextrose 5 % (D5W) infusion 100 mL/hr, intravenous, Continuous PRN, blood glucose less than 70 mg/dL, Starting on Wed07/02/25 at 1810, For 365 days, Use immediately following dextrose 50% or glucagon treatment for patients who are unconscious or NPO. Contact prescriber for additional orders. If blood glucose is not greater than 70 mg/dL after initial treatment, repeat treatment. dextrose 50 % in water (D50W) 50% solution 25 mL 25 mL, intravenous, As needed, low blood sugar, blood glucose less than 70 mg/dL and unconscious orNPO with IV access, Starting on Wed07/02/25 at [...] not available. If NPO, initiate IV 5% Dextr ose/Water at 100 mL/hr and contact prescriber for [...] complete. With each magnesium result continue the replacementorders as needed. magnesium sulfate IVPB 4000 mg/100 mL in iso-osmotic water (40 mg/mL premix) 4,000 mg, intravenous, at 25 mL/hr, Administer over 240 Minutes, As needed, Magnesium level 1.6 mg/dL or less, or Ionized Magnesium level 0.44 mmol/L or less, Starting on Wed07/02/25 at 1811, Recheckmagnesium level 4 hours after infusion complete. With each magnesium result continue the replacement orders as needed. ondansetron (PF) (ZOFRAN) injection 4 mg 4 mg, intravenous, Every 4 hours PRN, nausea, vomiting, Starting on Wed07/02/25 at 1811, Intravenous administration preferred to be given over 2-5 minutes. * 1310 (Given - Provider: Cesilia Hand RN) potassium chloride (K-TAB,KLOR-CON) CR tablet 30-50 mEq(Linked Group 1) 30-50 mEq, oral, As needed, Potassium Supplementation, Starting on Wed07/04/25 at 1136, Progress tooral potassium replacement when patient tolerating oral intake. [...] Supplementation, Starting on Wed07/04/25 at 1136, Progress tooral potassium replacement when patient tolerating oral intake. [...] each intermittent use, Starting on Wed07/02/25 at 1810 sodium chloride 0.9 % flush bag 25 mL, intravenous, at 100 mL/hr, Administer over 15 Minutes, As needed, line care, line care afterIVPB administration, Starting on Wed07/02/25 at 1810 sodium chloride 0.9 % infusion 20 mL/hr, [...] phosphorus level 4 hours after infusion complete. Order Group 1: potassium chloride (K-TAB,KLOR-CON) CR tablet 30-50 mEqJump to med 30-50 mEq, oral, As needed, Potassium Supplementation, Starting on Wed07/04/25 at 1136, Progress tooral potassium replacement when patient tolerating oral intake. [...] Supplementation, Starting on Wed07/04/25 at 1136, Progress tooral potassium replacement when patient tolerating oral intake. [...] BE BASED ON THE PRIMARY CLINICAL RECORDS. [employer] [facility]. provides no warranty or guarantee of the accuracy or completeness of information in this document.
[2025-09-10 03:48] LABS: Hematocrit 33.4 % (36.0-48.0); Hemoglobin 10.6 g/dL (12.0-16.0); Immature Granulocytes Abs Auto 0.10 10^3/uL (0.00-0.03); Immature Granulocytes Pct Auto 1.0 % (0.0-0.5); Lymphocytes Absolute Auto 1.3 10^3/uL (1.2-3.8); Mean Corpuscular HGB Conc 31.7 g/dL (29.9-35.2); Mean Corpuscular Hemoglobin 28.3 pg (26.7-34.0); Mean Corpuscular Volume 89.1 fL (81.0-99.0); Platelet Count 337 10^3/uL (150-450); Red Blood Count 3.75 10^6/uL (4.20-5.40); White Blood Count 10.3 10^3/uL (4.0-11.0)
--- NOTE | 2025-09-10 03:49 | XR_ITS ---
[facility] [place] [id number] Patient Name: TERESA GOODWIN MRN: [id number] date: 1945 Sex: F Assigned Patient Location: ED.MAIN Current Patient Location: ED.MAIN Accession/Order Number: [id number] Exam Date: 09/10/2025 04:26 Report Date: 09/10/2025 08:16 At the request of: SARAH MOORE MD Procedure: XR chest 1V PORTABLE AP ERECT CHEST 0341 hours CLINICAL HISTORY: cough, vomiting and abdominal pain. COMPARISON: 06/30/2025 The heart is borderline enlarged. A prosthetic heart valve is seen. There is no vascular congestion. There is minor atelectasis or scarring. No consolidation is noted. There is no effusion or pneumothorax. Old rib fractures are seen. XR/XR chest 1V IMPRESSION: NO ACUTE FINDINGS Impression dictated by: Amy Manley M.D. 09/10/2025 8:16 AM Dictation Location: [place] [address] Electronically authenticated by: [id number] Y Date: 09/10/2025 08:16
--- NOTE | 2025-09-10 03:50 | ED.NAVMDI1 ---
HPI - Nausea/Vomiting/Diarrhea General Chief complaint: Nausea/Vomiting/Diarrhea Stated complaint: RAIN, ABDOMINAL MASS Time Seen by Provider: 09/10/25 03:42 Source: other Source comment: Staff at [facility] in [place] Mode of arrival: ambulance History of Present Illness HPI Narrative: NHP reported dark emesis and dark stools. Is on iron supplement. Also complains of abdominal pain and cough. Nursing staff at the residential concern she is vomiting blood. Patient is poor historian. Not short of breath Related Data Home Medications ?Medication ?Instructions ?Recorded ?Confirmed pantoprazole 40 mg tablet,delayed 40 mg PO QDAY 09/30/23 09/10/25 release Previous Rx's ?Medication ?Instructions ?Recorded acetaminophen 500 mg tablet 500 mg PO Q6H PRN pain #0 tabs 09/11/25 (Acetaminophen Extra Strength) levofloxacin 250 mg tablet 250 mg PO DAILY 7 days #7 tabs 09/11/25 linezolid 600 mg tablet 300 mg (1/2 x 600 mg) PO BID 14 09/11/25 days #14 tabs sennosides 8.6 mg-docusate sodium 1 tab PO QD PRN Constipation #30 09/11/25 50 mg tablet tabs Allergies Allergy/AdvReac Type Severity Reaction Status Date / Time No Known Drug Allergies Allergy Verified 06/25/25 12:51 Review of Systems ROS Status of ROS 10 or more systems reviewed and unremarkable except as noted in history and below [facility] Medical History (Updated 09/12/25 @ 19:23 by Jonathan Gan MD) Stage 4 chronic kidney disease ?N18.4 - Chronic kidney disease, stage 4 (severe) (ICD-10) UTI (urinary tract infection) ?N39.0 - Urinary tract infection, site not specified (ICD-10) Acute UTI ?N39.0 - Urinary tract infection, site not specified (ICD-10) H/O malignant neoplasm of female breast ?Z85.3 - Personal history of malignant neoplasm of breast (ICD-10) Aortic stenosis ?I35.0 - Nonrheumatic aortic (valve) stenosis (ICD-10) Arthritis ?M19.90 - Unspecified osteoarthritis, unspecified site (ICD-10) Asthma ?J45.909 - Unspecified asthma, uncomplicated (ICD-10) Encephalitis ?G04.90 - Encephalitis and encephalomyelitis, unspecified (ICD-10) Metastasis to bone ?C79.51 - Secondary malignant neoplasm of bone (ICD-10) Peptic ulcer disease ?K27.9 - Peptic ulcer, site unspecified, unspecified as acute or chronic, without hemorrhage or perforation (ICD-10) TIA (transient ischemic attack) ?G45.9 - Transient cerebral ischemic attack, unspecified (ICD-10) CHELSEA (obstructive sleep apnea) ?G47.33 - Obstructive sleep apnea (adult) (pediatric) (ICD-10) PVD (peripheral vascular disease) ?I73.9 - Peripheral vascular disease, unspecified (ICD-10) Lumbar spondylosis ?M47.816 - Spondylosis without myelopathy or radiculopathy, lumbar region (ICD-10) Incontinence ?R32 - Unspecified urinary incontinence (ICD-10) CKD (chronic kidney disease) stage 3, GFR 30-59 ml/min ?N18.30 - Chronic kidney disease, stage 3 unspecified (ICD-10) Breast CA ?C50.919 - Malignant neoplasm of unspecified site of unspecified female breast (ICD-10) CAD (coronary artery disease) ?I25.10 - Atherosclerotic heart disease of [place] coronary artery without angina pectoris (ICD-10) Depression ?F32.A - Depression, unspecified (ICD-10) GERD (gastroesophageal reflux disease) ?K21.9 - Gastro-esophageal reflux disease without esophagitis (ICD-10) Hypertension ?I10 - Essential (primary) hypertension (ICD-10) Diabetes ?E11.9 - Type 2 diabetes mellitus without complications (ICD-10) Surgical History S/P DIGITAL COURT REPORTER shunt ?Z98.2 - Presence of cerebrospinal fluid drainage device (ICD-10) H/O heart artery stent ?Z95.5 - Presence of coronary angioplasty implant and graft (ICD-10) History of ventriculoperitoneal shunting ?Z92.89 - Personal history of other medical treatment (ICD-10) History of mastectomy ?Z90.10 - Acquired absence of unspecified breast and nipple (ICD-10) H/O lumpectomy ?Z98.890 - Other specified postprocedural states (ICD-10) S/P balloon mitral valvuloplasty ?Z98.890 - Other specified postprocedural states (ICD-10) S/P mitral valve replacement with bioprosthetic valve ?Z95.3 - Presence of xenogenic heart valve (ICD-10) Family History Other Family history of CHF (congestive heart failure) Family history of diabetes mellitus Family history of myocardial infarction Social History Within the past year, how often did you have a drink containing alcohol: never Score interpretation: A score less than 3 is consistent with normal alcohol consumption. 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 Known occupational exposures/hazards: No Highest level of school completed/degree received: don't know Do you want help with school or training: No Are you now , , , , never or living with a partner: never In a typical week, how many times do you talk on the telephone with family, friends, or neighbors: 3 or more times per week How often do you get together with friends or relatives: never How often do you attend uatsdin or temple services: 4 or more times per year Do you belong to any clubs or organizations such as uatsdin groups unions, fraternal or athletic groups, or school groups: no Total score: 2 Score interpretation: A score of greater than or equal to 2 indicates the lowest level of social isolation. Little interest or pleasure in doing things: not at all Feeling down, depressed, or hopeless: not at all Feel stressed/tense/nervous/anxious/difficulty sleeping: not at all Due to disability, difficulty making decisions: No Do you think of yourself as: straight/heterosexual Gender Identity: female Exam Constitutional Vital Signs, click to edit/add: Last Vital Signs Temp 99.2 F 09/11/25 12:00 Pulse 70 09/11/25 13:39 Resp 18 09/11/25 04:00 BP 124/62 09/11/25 12:00 Pulse Ox 90 L 09/11/25 12:00 O2 Del Method Room Air 09/11/25 12:00 O2 Flow Rate 2 09/11/25 09:35 Common normals: no apparent distress, average body habitus, healthy appearing and well nourished HENMA Common normals: normocephalic and head/scalp atraumatic Eye Common normals: PERRL and EOMs intact bilaterally Respiratory Common normals: normal respiratory effort, no retractions, no use of accessory muscles and clear to auscultation bilaterally Cardio Common normals: regular rate, regular rhythm, S1 normal heart sound and S2 normal heart sound Extremity Common normals: normal to inspection and full ROM Neuro Common normals: oriented x3, CN's II-XII intact bilaterally, moves all extremities and no focal motor deficits Psych Appearance: grossly normal Course Course Hospital Course: Mrs. Dee is a 80-year-old female who came in with change in mental status. She was found to have the following: RAIN which is likely secondary to hypercalcemia, volume depletion as well. Severe hypercalcemia. Known history of metastatic breast cancer. Imaging showed diffuse bone metastasis Confusion, disorientation. Acute metabolic encephalopathy. Unable to stand up and ambulate. Much improved over the last 24 hours. RAIN, hypercalcemia, dehydration and volume as had improved. Family met with the hospice team and requested to change CODE STATUS to DNR CC and discharge home with hospice care. Hematemesis but the gastric content tested negative for blood. Hold off anticoagulation for 48 hours ensure stability of her hemoglobin. Anemia, hemoglobin drop over the last 24 hours Drop of her hemoglobin is likely caused by aggressive IV fluid infusion over the last 24 hours Recent iron studies consistent with anemia of chronic disease, likely secondary to metastatic cancer. DNRCC and hospice care requested by family. History of metastatic breast cancer. CAT scan showed extensive lytic lesion throughout the skeleton Adnexal mass also is seen. Last admission I requested K and L chain which came back elevated but the ratio is normal. Not sure if patient followed up with her oncologist since last discharge I was able to get a copy of PET scan that the patient had on PET scan is showing widespread osseous metastasis throughout the axial and proximal appendicular skeleton. Hypermetabolic left axillary nodes. Goals of care discussion with her daughter. Her daughter wants to meet with hospice team to see what they have to offer. Overall patient has poor prognosis given her advanced age in the setting of metastatic disease, declining cognitive and functional status. Patient and her daughter met with the hospice team and the decision was made to change CODE STATUS to DNR CCA, enrollment into hospice program, discharged home today under hospice care. Patient has wheelchair and hospital bed at home. Hospice will order Beka lift. UTI Urine and blood cultures pending Based on previous urine culture report I started patient on Levaquin. Dose adjusted for renal. Family requested DNR CC and hospice enrollment. Patient will be discharged home on Levaquin to 50 mg daily. MRSA bacteremia Unknown source. Family requested comfort care and enrollment into the hospice program. Patient will be given 1 dose of vancomycin intravenously. She will be discharged home on oral linezolid 300 mg twice a day. Elevated troponin, flat elevation. EKG does not show any ST elevation or depression Patient is not having chest pain however she is encephalopathic. No clinical evidence at this time to suggest ACS however I suspect that the patient has underlying CAD. Start patient on small dose beta-willi and aspirin Avoid aggressive intervention at this time. Diabetes Accu-Chek with a sliding scale coverage. Chronic, subacute medical conditions not listed above, abnormal labs and imaging. Goals of care discussion took place. Given her advanced age, widespread skeletal metastasis, history of breast cancer, Significant metabolic derangement, hypercalcemia, RAIN, bacteremia, urinary tract infection in the setting of functional and cognitive disability. Family and patient opted to focus on comfort and enroll her into hospice program. Daughter does not want her to receive any additional acute or aggressive medical care. Daughter requested care that is intended for comfort and comfort care only. No further blood testing is requested. No additional imaging or follow-up with oncology team. Vital Signs Vital signs: Vital Signs Temperature 98.0 F 09/10/25 03:13 Pulse Rate 85 09/10/25 03:13 Respiratory Rate 18 09/10/25 03:13 Blood Pressure 150/77 H 09/10/25 03:13 Pulse Oximetry 93 L 09/10/25 03:13 Oxygen Delivery Method Room Air 09/10/25 03:13 Temperature 99.2 F 09/11/25 12:00 Pulse Rate 70 09/11/25 13:39 Respiratory Rate 18 09/11/25 04:00 Blood Pressure 124/62 09/11/25 12:00 Pulse Oximetry 90 L 09/11/25 12:00 Oxygen Delivery Method Room Air 09/11/25 12:00 Oxygen Delivery Flow Rate 2 09/11/25 09:35 MDM - Nausea/Vomiting/Diarrhea MDM Narrative Medical decision making narrative: patient has dementia and is not able to provide much history. complains of vomiting but with further questioning she is describing post tussive emesis. She also complains of abdominal pain. residential was concerned about hematemesis and transferred to the ER. Hemoccult and gastroccult both neg for blood. She has history of stage IV CKD. Her Creat was 1.6 08/10/25 and is now 4.5. BUN 50. she also has elevated troponin that was 64.6 and repeat decreased to 59.6. she has past history of CAD and IDDM. Due to her complaint of abdominal pain CT ordered and pending. lab also with finding of hypercalcemia she also has history of metastatic breast CA to bones. She is full code CT returned with findings of diffuse metastatic disease. Discussed with the hospitalist and patient accepted for admission Lab Data Labs: Lab Results 09/10/25 09/10/25 09/10/25 Range/Units 03:25 03:35 05:23 WBC 10.3 (4.0-11.0) 10^3/uL RBC 3.75 L (4.20-5.40) 10^6/uL Hgb 10.6 L (12.0-16.0) g/dL Hct 33.4 L (36.0-48.0) % MCV 89.1 (81.0-99.0) fL MCH 28.3 (26.7-34.0) pg MCHC 31.7 (29.9-35.2) g/dL RDW 16.1 H (11.0-15.0) % Plt Count 337 (150-450) 10^3/uL MPV 10.0 (9.5-13.5) fL Neut % (Auto) 80.1 H (43.0-75.0) % Lymph % (Auto) 12.3 L (20.5-60.0) % Franklin % (Auto) 6.0 (1.7-12.0) % Eos % (Auto) 0.4 L (0.9-7.0) % Baso % (Auto) 0.2 (0.2-2.0) % Neut # (Auto) 8.2 H (1.4-6.5) 10^3/uL Lymph # (Auto) 1.3 (1.2-3.8) 10^3/uL Franklin # (Auto) 0.6 (0.3-0.8) 10^3/uL Eos # (Auto) 0.0 (0.0-0.7) 10^3/uL Baso # (Auto) 0.0 (0.0-0.1) 10^3/uL Abs Immat Gran (auto) 0.10 H (0.00-0.03) 10^3/uL Imm/Tot Granulo (auto) 1.0 H (0.0-0.5) % Sodium 135 L (136-145) mmol/L Potassium 3.4 L (3.5-5.1) mmol/L Chloride 88 L (98-107) mmol/L Carbon Dioxide 33.3 H (21.0-32.0) mmol/L Anion Gap 17.1 BUN 50.0 H (7.0-18.0) mg/dL Creatinine 4.25 H (0.55-1.02) mg/dL Est GFR ( Amer) 12 L (>=60 mL/min/1.73m^2) Est GFR (Non-Af Amer) 10 L (>=60 mL/min/1.73m^2) BUN/Creatinine Ratio 11.8 Glucose 251 H (74-106) mg/dL Lactate 1.6 (0.4-2.0) mmol/L Calcium 14.0 H* (8.5-10.1) mg/dL Phosphorus 4.7 (2.6-4.7) mg/dL Magnesium 2.7 H (1.8-2.4) mg/dL Total Bilirubin 0.5 (0.2-1.0) mg/dL AST 30 (15-37) U/L ALT 19 (14-59) U/L Alkaline Phosphatase 171 H (46-116) U/L Troponin I High Sens 64.6 H* (4.0-51.3) pg/mL Total Protein 8.2 (6.4-8.2) g/dL Albumin 3.3 L (3.4-5.0) g/dL Globulin 4.9 g/dL Albumin/Globulin Ratio 0.7 Vitamin D Level 101.3 ng/mL Gastric Fluid pH 4 Gastric Occult Blood Negative Stool Occult Blood Negative 09/10/25 Range/Units 05:52 WBC (4.0-11.0) 10^3/uL RBC (4.20-5.40) 10^6/uL Hgb (12.0-16.0) g/dL Hct (36.0-48.0) % MCV (81.0-99.0) fL MCH (26.7-34.0) pg MCHC (29.9-35.2) g/dL RDW (11.0-15.0) % Plt Count (150-450) 10^3/uL MPV (9.5-13.5) fL Neut % (Auto) (43.0-75.0) % Lymph % (Auto) (20.5-60.0) % Franklin % (Auto) (1.7-12.0) % Eos % (Auto) (0.9-7.0) % Baso % (Auto) (0.2-2.0) % Neut # (Auto) (1.4-6.5) 10^3/uL Lymph # (Auto) (1.2-3.8) 10^3/uL Franklin # (Auto) (0.3-0.8) 10^3/uL Eos # (Auto) (0.0-0.7) 10^3/uL Baso # (Auto) (0.0-0.1) 10^3/uL Abs Immat Gran (auto) (0.00-0.03) 10^3/uL Imm/Tot Granulo (auto) (0.0-0.5) % Sodium (136-145) mmol/L Potassium (3.5-5.1) mmol/L Chloride (98-107) mmol/L Carbon Dioxide (21.0-32.0) mmol/L Anion Gap BUN (7.0-18.0) mg/dL Creatinine (0.55-1.02) mg/dL Est GFR ( Amer) (>=60 mL/min/1.73m^2) Est GFR (Non-Af Amer) (>=60 mL/min/1.73m^2) BUN/Creatinine Ratio Glucose (74-106) mg/dL Lactate (0.4-2.0) mmol/L Calcium (8.5-10.1) mg/dL Phosphorus (2.6-4.7) mg/dL Magnesium (1.8-2.4) mg/dL Total Bilirubin (0.2-1.0) mg/dL AST (15-37) U/L ALT (14-59) U/L Alkaline Phosphatase (46-116) U/L Troponin I High Sens 59.6 H* (4.0-51.3) pg/mL Total Protein (6.4-8.2) g/dL Albumin (3.4-5.0) g/dL Globulin g/dL Albumin/Globulin Ratio Vitamin D Level ng/mL Gastric Fluid pH Gastric Occult Blood Stool Occult Blood Imaging Data Chest x-ray: Radiologist's impression: ITS Impressions Chest X-Ray 09/10/25 03:49 IMPRESSION: NO ACUTE FINDINGS Impression dictated by: Amy Manley M.D. 09/10/2025 8:16 AM Dictation Location: [place] [id number] Electronically authenticated by: [id number] Y Date: 09/10/2025 08:16 Discharge Plan Discharge Chief Complaint: Nausea/Vomiting/Diarrhea Clinical Impression: Hypercalcemia, Elevated troponin, Acute renal failure, Metastatic cancer Patient Disposition: Admitted As Inpatient Discharge Date/Time: 09/10/25 08:37
[2025-09-10 04:01] LABS: Lactate/Lactic Acid 1.6 mmol/L (0.4-2.0)
[2025-09-10 04:10] LABS: Alanine Aminotransferase 19 U/L (14-59); Albumin Globulin Ratio 0.7; Albumin Level 3.3 g/dL (3.4-5.0); Alkaline Phosphatase 171 U/L (46-116); Anion Gap 17.1; Aspartate Amino Transferase 30 U/L (15-37); Blood Urea Nitrogen 50.0 mg/dL (7.0-18.0); Carbon Dioxide 33.3 mmol/L (21.0-32.0); Chloride 88 mmol/L (98-107); Estimated GFR (African America 12 (>=60 mL/min/1.73m^2); Estimated GFR (Non-African Ame 10 (>=60 mL/min/1.73m^2); Globulin 4.9 g/dL; Glucose 251 mg/dL (74-106); Potassium 3.4 mmol/L (3.5-5.1); Sodium 135 mmol/L (136-145); Total Protein 8.2 g/dL (6.4-8.2)
[2025-09-10 04:17] LABS: Calcium 14.0 mg/dL (8.5-10.1)
--- NOTE | 2025-09-10 04:18 | PC.NURSE ---
lab called with critical: trop.64.6 and calcium=14 this patient's nurse and Dr Gan informed of these critical results
[2025-09-10] MEDS: 0.9 % SODIUM CHLORIDE 1,000 ML 999 ML IV (06:55)
[2025-09-10] MEDS: ALBUTEROL SULFATE 2.5 MG/3 ML VIAL NEB IH (07:09)
[2025-09-10 07:23] LABS: Magnesium 2.7 mg/dL (1.8-2.4)
--- OUTSIDE RECORDS SUMMARY | 2025-09-10 09:06 | XMS_ITS | CCD ---
Author Organization [facility] Care Team Providers Care Guide Visitor Name Role Phone Michael Duarte Primary Care [...] CasiMichael stallworth Primary Care Provider Unavaildeshawn Stinson SALES REPRESENTATIVE MEATS - CLOTH HAULER, Pam De La Rosa Primary Care Prov [...] Attending Unavailable MARITZA MIDDLETON Admitting Unavailable Stinson SALES REPRESENTATIVE MEATS-CLOTH HAULER, Pam De La Rosa Primary Care Provid er Stinson SALES REPRESENTATIVE MEATS-CLOTH HAULER, Pam J Primary Care Provid er Stinson SALES REPRESENTATIVE MEATS-CLOTH HAULER, Pam J Primary Care Provid er Al Bessie RAMIREZ, Kendall Unavailable UnavailSarai Allred Attending Unavailable Al Bessie, Kendall Attending Unavailable Al Bessie, Kendall Referring Unavailable Al Bessie, Kendall Attending Unavailable Stinson SALES REPRESENTATIVE MEATS-CLOTH HAULER, Pam J Primary Care Provid er Bhavik La MD, Kendall Unavailable Unavailabl e Stinson SALES REPRESENTATIVE MEATS-CLOTH HAULER, Pam Estrella Primary Care Provid er Stinson SALES REPRESENTATIVE MEATS-CLOTH HAULER, Pam J Primary Care Provid er Isaac SALES REPRESENTATIVE MEATS-CLOTH HAULER, Vj Cohen Primary Care Provider Unallocated , [...] Unavailable LEXX, FELIX Mendoza Attending Unavailable FELIX HALLAMN Admitting Unavailable JOIE ECHAVARRIA Attending Unavailable JOIE ECHAVARRIA Referring Unavailable JOIE ECHAVARRIA Attending Unavailable JOIE ECHAVARRIA Referring Unavailable OVITT, VALE Attending Unavailable OVITT, VALE Referring Unavailable OVITT, VALE Referring Unavailable OVITT, VALE Referring Unavailable CLIFF VIVAR Attending Unavailable OVITT, VALE Attending Unavailable MARYCARMEN AZAR Admitting Unavailab NAYANA Aragon Referring Unavailable STINSON, PAM J Primary Care Unavailable DIVISION OF INFECTIOUS DISEASE, [facility] Consulting Unavailable MARIA GUADALUPE CAGLE [...] Unavailable STINSON, PAM J Primary Care Unavailable STINOSN, PAM J Primary Care Unavailable SASHA SPICER [...] Unavailable STINSON, PAM J Primary Care Unavailable RDORIGUEZ, CHRISTINE U Admitting Unavailable RODRIGUEZ, CHRISTINE U [...] Care Unavailable HEATH THIBODEAUX Attending Unavailable MICHAEL JIONER Primary Care Unavailable KENNETH PRYOR Attending Unavailable [...] ClassificationReported Allergen(s)Allergy TypeDate of OnsetReaction(s) Facility (1 source)20939,00Drug allergy (disorder)[id number] [facility] Medications Current Medications MedicationDrug Class(es)DatesSig (Normalized)Sig (Original)acetaminophen 500 mg oral tablet (20 sources)Start: 26-47-2878zrem 2 tablets by mouth every eight hours acetaminophen (TYLENOL EXTRA STRENGTH) 500 mg tablet Take 2 tablets (1,000 mg total) by mouth every8 (eight) hours. 07/18/2025 ActiveStart: 07-02-2025 End: 52-00-0989xhnx 1 tablet by mouth every four hours as needed for pain and headacheStart: 05-13-2025 End: 74-43-4545ryrs 1 tablet by mouth every four hours as needed for pain and fever and mg, oral, Every 4 hours PRN, mild pain - pain scale 1-3, temperature greater than 38 C, headaches, Temperature greater than 38.3 C, Starting on Wed05/13/25 at 1445, Scheduling/ADT, [Warning: Total Acetaminophen not to exceed more than 4 grams (4000 mg) in 24 hours]Start: 21-41-5532yvog 650 mg by mouth every four hours [...] 0.83 mg/ml inhalation solution (9 sources)beta2-Adrenergic AgonistStart: 51-82-8620vjgi 3 mL by inhalation every six hours [...] oral tablet (2 sources)Penicillin-class AntibacterialStart: 08-14-2024 End: 20-32-7984nwsu 1 tablet by mouth onceamoxicillin-pot clavulanate (AUGMENTIN) 875-125 mg per tablet Take 1 tablet by mouth every 12 (twelve) hours for 5 days. 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 90 tablet 1 11/28/2024 SuspendedStart: 85-41-4622ubod 1 tablet by mouth in the morning atorvastatin (LIPITOR) 80 mg tablet Take 1 tablet (80 mg total) by mouth in the morning. 09/29/2022ctiveazithromycin 250 mg oral tablet (1 source)Macrolide AntimicrobialStart: 12-15-2023 End: 52-60-8718zgntdomcuodn (ZITHROMAX) 250 mg tablet Indications: Upper respiratory tract infection, unspecified type Take 2 tablets the first day, then 1 tablet daily for 4 days. 6 tablet 0 12/15/2023 12/19/2023 Active4 ml bevacizumab 25 mg/ml injection (1 source)Vascular Endothelial Growth Factor InhibitorStart: 75-56-8571Dhvzfyh 25 mg/mL intravenous solution Direct Patient Administration Only - Active OUComment on above:OUbisacodyl 5 mg delayed release oral tablet (1 source)Stimulant LaxativeStart: 11-21-4919ngurzloky (DULCOLAX) EC tablet 10 mgblood-glucose meter misc (20 sources)Start: 87-02-7833rjxiu-glucose meter misc Indications: Controlled type 2 diabetes mellitus with diabetic nephropathy, without long-term current use of insulin ([facility]) Monitor blood sugars four times daily and as needed 1 each 10/11/2020 ActiveStart: 70-17-2294dfooo-glucose meter misc Indications: Controlled type 2 diabetes mellitus with diabetic nephropathy, without long-term current use of insulin ([facility]) Monitor blood sugars four times daily and as needed 1 each 0 10/11/2020 ActivebusPIRone hydrochloride 5 mg oral tablet (20 sources)Start: 07-04-2025 End: 09-60-3516huae 1 tablet by mouth three times dailybusPIRone [...] oral capsule (3 sources)Cephalosporin AntibacterialStart: 01-10-2025 End: 75-93-5494fllz 1 capsule by mouth three times dailyCEPHalexin (KEFLEX) 500 mg capsule Take 1 capsule (500 mg total) by mouth 3 (three) times a day for7 days. 21 capsule 01/10/2025 01/17/2025 ActiveStart: 11-10-2024 End: 35-52-9301egwv 1 capsule by mouth in the morning, then take 1 capsule by mouth at bedtimeCEPHalexin (KEFLEX) 500 mg capsule Take 1 capsule (500 mg total) by mouth in the morning and 1 capsule (500 mg total) before bedtime. Do all this for 30 days. 60 capsule 11/10/2024 12/10/2024 ActiveStart: 02-09-2024 End: 36-43-7419dffz 1 capsule by mouth in the morning, then take 1 capsule by mouth at bedtimeCEPHalexin (KEFLEX) 250 mg capsule Indications: Acute cystitis without hematuria Take 1 capsule (250 mg total) by mouth in the morning and 1 capsule (250 mg total) before bedtime. Do all this for 10 days. 20 capsule 0 02/09/2024 02/19/2024 Activecholecalciferol 0.05 mg oral tablet (20 sources)Vitamin DStart: 91-74-9254texo 1 tablet by mouth in the morning cholecalciferol, vitamin D3, 2,000 units tablet Take 1 tablet (2,000 Units total) by mouth in the morning. 07/19/2025 Activeciprofloxacin 500 mg oral tablet (1 source)Quinolone AntimicrobialStart: 11-12-2024 End: 45-69-0354ktqx 0.5 tablet by mouth in the morning, then take 0.5 tablet by mouth at bedtimeciprofloxacin HCl (CIPRO) 500 mg tablet Take 0.5 tablets (250 mg total) by mouth in the morning and0.5 tablets (250 mg total) before bedtime. Do all this for 7 days. 7 tablet 11/12/2024 11/19/2024 ActiveDEXCOM G7 DIRECTOR FOOD AND BEVERAGE misc (13 sources)Start: 30-87-9635IASKVL G7 DIRECTOR FOOD AND BEVERAGE misc USE DIRECTED TO CONTINUOUSLY MONITOR BLOOD SUGAR 07/05/2024 ActiveDEXCOM G7 SENSOR device (20 sources)Start: 78-66-3362MEXFYF G7 SENSOR device CHANGE SENSOR EVERY 10 DAYS, E11.65 03/22/2024 Activedocusate sodium 100 mg oral capsule (18 sources)Start: 41-36-8742rufl 1 capsule by mouth in the morning, then take 1 capsule by mouth at bedtimedocusate sodium (COLACE) 100 mg capsule Take 1 capsule (100 mg total) by mouth in the morning and 1capsule (100 mg total) before bedtime. 07/18/2025 Activedoxycycline monohydrate 100 mg oral capsule (4 sources)Tetracycline-class DrugStart: 05-15-2025 End: 77-71-3422rjgx 1 capsule by mouth in the morning, then take 1 capsule by mouth at bedtimedoxycycline (MONODOX) 100 mg capsule Take 1 capsule (100 mg total) by mouth in the morning and 1 capsule (100 mg total) before bedtime. Do all this for 5 days. 05/15/2025 05/20/2025 ActiveStart: 05-14-2025 End: 04-75-9449asry 100 mg by mouth twice hcbyu951 mg, oral, 2 times daily, First dose on Wed05/14/25 at 1115, For 5 days, Indication: Community-acquired pneumoniaStart: 2024 End: 47-52-2563tvun 1 capsule by mouth in the morning, [...] (8 sources)Low Molecular Weight HeparinStart: 08-07-2025 End: 66-34-8613nbejlu 0.4 mL by subcutaneous injection in the morningenoxaparin (LOVENOX) 40 mg/0.4 mL syringe Inject 0.4 mL (40 mg total) under the skin in the morningfor 30 doses. 15 mL 08/07/2025 09/06/2025 ActiveStart: 07-03-2025 End: 10-07-573891 mg, subcutaneous, Daily, First dose on Wed07/03/25 at 0600, When Creatinine Clearance 30 mL/min or greater Look-alike/sound-alike medication - verify indication for use.ergocalciferol 1.25 mg oral capsule (18 sources)Provitamin D2 CompoundStart: 44-76-9739qyvz 1 capsule by mouth every weekergocalciferol (DRISDOL) 1,250 mcg (50,000 unit) capsule Take 1 capsule (50,000 Units total) by mouth once a week. 07/20/2025 Activeferrous sulfate 325 mg oral tablet (20 sources)Start: 23-86-4705holf 1 tablet by mouth once daily at breakfast ferrous sulfate 325 (65 FE) MG tablet Take 1 tablet (325 mg total) by mouth daily with breakfast. 07/18/2025 ActiveStart: 07-03-2025 End: 55-12-8287fhle 1 tablet by mouth in the morning, then take 1 tablet by mouth at mealtimeferrous sulfate 325 (65 FE) MG tablet Take 1 tablet (325 mg total) by mouth in the morning and 1 tablet (325 mg total) in the evening. Take with meals. 07/05/2025 SuspendedStart: 05-14-2025 End: 79-40-0840iowf 325 mg by mouth once daily at srocypmng457 mg, oral, Daily with breakfast, First dose on Wed07/02/25 at 1815, Give ferrous sulfate 2 hours before or 4 hours after antacids.fluconazole 150 mg oral tablet (1 source)Azole AntifungalStart: 10-25-2024 End: 14-75-7162vvfb 1 tablet by mouth oncefluconazole (DIFLUCAN) 150 mg tablet Take 1 tablet (150 mg total) by mouth once for 1 dose. 1 tablet 10/25/2024 10/25/2024 Activefluticasone / salmeterol (9 sources)Corticosteroid, beta2-Adrenergic AgonistStart: 50-20-2093gyws 1 puff(s) by inhalation in the morningfluticasone propion-salmeteroL (ADVAIR) 100- 50 mcg/dose DISKUS Inhale 1 puff in the morning and 1 puff before bedtime. 60 each 2024 Activefurosemide 20 mg oral tablet (20 sources)Loop DiureticStart: 01-10-2025 End: 81-61-3394snvv 1 tablet by mouth once dailyfurosemide (LASIX) 20 mg tablet Take 1 tablet (20 mg total) by mouth daily. 05/16/2025 Activegabapentin 300 mg oral capsule (20 sources)Anti-epileptic AgentStart: 68-33-6160szfw 1 capsule by mouth in the morninggabapentin (NEURONTIN) 300 mg capsule Indications: 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) Take 1 capsule (300 mg total) by mouth in the morning. 30 capsule 1 07/31/2025 ActiveStart: 05-14-2025 End: 04-09-1429xnjz 600 mg by mouth once dufez363 mg, oral, Nightly, First dose on Wed05/14/25 at 2200, Look-alike/sound-alike medication - verify indication for use.Start: 03-05-2024 End: 82-11-2330xgqg 1 capsule by mouth in the morninggabapentin (Neurontin) 300 MG capsule Take 300 mg by mouth in the morning and 300 mg in the evening. 03/05/2024 ActiveStart: 08-10-2023 End: 18-79-0331stwn 1 capsule by mouth in the morning, then take 1 capsule by mouth at bedtimegabapentin (NEURONTIN) 300 mg capsule Indications: 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 mellitus ([facility]) Take 1 capsule (300 mg total) by mouth in the morning and 1 capsule (300 mg total) before bedtime. 180 capsule 1 12/15/2023 01/18/2025 Discontinued (Reorder) End: 35-80-0001hxuj 2 capsules by mouth once dailygabapentin (NEURONTIN) [...] 100 unt/ml pen injector (20 sources)Insulin AnalogStart: 55-69-5930ypqfhxt aspart FlexPen (NovoLOG) 100 UNIT/ML pen Inject under the skin 3 (three) times a day with meals 12/29/2024 Active End: 18-40-6232hvfupfe aspart U-100 (NovoLOG) 100 unit/mL (3 mL) [...] 100 unt/ml pen injector (20 sources)Insulin AnalogStart: 53-69-7076oocgft 15 [IU] by subcutaneous injection at bedtimeinsulin detemir (Levemir) 100 UNIT/ML pen Inject 15 Units under the skin at bedtime 08/24/2024 ActiveStart: 74-23-6573zcszdm 15 [IU] by subcutaneous injection once dailyinsulin detemir U-100 (LEVEMIR) 100 unit/mL (3 mL) insulin pen Inject 15 Units under the skin nightly. 15 mL 12 08/24/2024 ActiveStart: 26-29-1265cjxkhnn detemir U-100 (LEVEMIR) 100 unit/mL (3 mL) insulin pen 30 units at bedtime 04/05/2024 ActiveStart: 08-31-2023 End: 88-28-0911wragrps detemir U-100 (LEVEMIR FLEXPEN) 100 unit/mL (3 mL) insulin pen Indications: Controlled type2 diabetes mellitus with diabetic nephropathy, without long-term current use of insulin ([facility]) INJECT 30 UNITS UNDER THE SKIN NIGHTLY 30 mL 3 08/31/2023 03/02/2024 Discontinued (Therapy completed)Levemir 100 unit/mL Sub-Q inject by subcutaneous route as per insulin sliding scale protocol - Activeinsulin detemir (LEVEMIR) 100 UNIT/ML injection pen Inject 40 Units into the skin nightly. 0 Active3 ml insulin glargine 100 unt/ml pen injector (20 sources)Insulin AnalogStart: 07-03-2025 End: 79-24-0102kjzrel 10 [IU] by subcutaneous injection once dailyinsulin glargine (LANTUS, SEMGLEE) 100 unit/mL (3 mL) insulin pen Inject 10 Units under the skin nightly. 15 mL 07/05/2025 ActiveStart: 66-94-1256mtfhirn glargine (Lantus SoloStar) 100 UNIT/ML pen Inject under the skin 12/07/2024 ActiveStart: 98-20-2908xspqfvh glargine (LANTUS) injection vial 10 UnitsStart: 12-07-2022 End: 34-74-6900brchxrc glargine (LANTUS) injection vial 20 Unitsletrozole 2.5 mg oral tablet (20 sources)Aromatase InhibitorStart: 01-25-2025 End: 80-59-1928zweo 1 tablet by mouth once dailyletrozole (FEMARA) 2.5 mg chemo tablet Take 1 tablet by mouth daily 90 tablet 3 01/25/2025 01/20/2026 Active Start: 03-18-2023 End: 90-07-8197lnia 1 tablet by mouth once dailyletrozole (FEMARA) 2.5 mg chemo tablet Indications: Malignant neoplasm of upper-outer quadrant of right female breast, unspecified estrogen receptor status (CMS-HCC) TAKE 1 TABLET BY MOUTH EVERY DAY 90 tablet 3 01/04/2024 Activelidocaine 0.04 mg/mg medicated patch (20 sources)Antiarrhythmic, Amide Local AnestheticStart: 50-32-3886vlhqu 1 dose transdermal route once dailylidocaine (SALONPAS) [...] mg oral tablet (20 sources)Start: 07-02-2025 End: 35-62-5875nzcj 1 tablet by mouth in the morningmagnesium oxide (MAGOX) 400 mg tablet Take 1 tablet (400 mg total) by mouth in the morning. 07/05/2025 ActiveStart: 02-24-2025 End: 36-75-8400pguk 400 mg by mouth once mg, oral, Daily, First dose on Wed05/14/25 at 1330metoprolol tartrate 25 mg oral tablet (20 sources)beta-Adrenergic BlockerStart: 87-05-0522xczh 0.5 tablet by mouth in the morning, then take 0.5 tablet by mouth at bedtimemetoprolol tartrate (LOPRESSOR) 25 mg tablet Take 0.5 tablets (12.5 mg total) [facility] and 0.5 tablets (12.5 mg total) before bedtime. 60 tablet 11 11/10/2024 Active Start: 72-18-0206bzjh 1 tablet by mouth once dailymetoprolol succinate XL (TOPROL XL) 25 mg 24 hr tablet Indications: Essential hypertension Take 1 tablet (25 mg total) by mouth once daily. 90 tablet 2 06/05/2024 ActiveStart: 07-08-2023 End: 67-57-7207sqln 1 tablet by mouth once dailymetoprolol succinate [...] mg oral tablet (20 sources)Start: 05-14-2025 End: 04-61-0892ywwr 7.5 mg by mouth once daily7.5 mg, oral, Nightly, First dose on 05/14/25 at 0145Start: 01-22-2025 End: 07-88-2292vugb 1 tablet by mouth once dailymirtazapine (REMERON) 7.5 mg tablet Indications: Insomnia, unspecified type Take 1 tablet (7.5 mg total) by mouth nightly. 90 tablet 1 07/31/2025 Activemupirocin 0.02 mg/mg topical ointment (1 source)RNA Synthetase Inhibitor AntibacterialStart: 07-38-0458lvlaacjuq (BACTROBAN) 2 % ointment Apply 1 Application topically in the morning and 1 Application before bedtime. 30 g 09/13/2024 Activenaproxen 500 mg oral tablet (2 sources)Nonsteroidal Anti-inflammatory Drugtake 1 tablet by mouth twice daily at mealtimenaproxen 500 mg Tab take 1 tablet (500MG) by oral route 2 times every day with food 500 MG - Activenystatin 100 unt/mg topical powder (20 sources)Polyene AntifungalStart: 20-77-3136pochfuhy (Mycostatin) 607206 UNIT/GM powder Apply 1 Application topically in the morning and 1 Application at noon and 1 Application in the evening and 1 Application before bedtime. 09/06/2024 ActiveStart: 09-06-2024 End: 82-93-0537zgibwuhx (MYCOSTATIN) powder Indications: Beverly infection of flexural [...] oral capsule (3 sources)Opioid AgonistStart: 08-06-2025 End: 31-77-6997prxr 1 capsule by mouth every six hours [...] release oral tablet (20 sources)Proton Pump InhibitorStart: 38-20-9927rypy 1 tablet by mouth once daily before breakfastpantoprazole (PROTONIX) 40 mg EC tablet Take 1 tablet (40 mg total) by mouth every morning before breakfast. 07/19/2025 ActiveStart: 03-05-2024 End: 51-74-1488zvds 1 tablet by mouth in the morningpantoprazole (PROTONIX) 40 mg EC tablet TAKE 1 TABLET (40 MG TOTAL) BY MOUTH IN THE MORNING 03/05/2024 11/24/2024 DiscontinuedStart: 08-10-2023 End: 99-51-3095lqiy 1 tablet by mouth in the morningpantoprazole (PROTONIX) 40 mg EC tablet Indications: GERD without esophagitis Take 1 tablet (40 mg total) by mouth in the morning. 90 tablet 2 12/15/2023 Activetake 40 mg by mouth before mealtimepantoprazole (ProtoNix) 40 MG packet Take 40 mg by mouth in the morning. Take before meals. Activepolyethylene glycol 3350 94386 mg powder for oral solution (20 sources)Osmotic LaxativeStart: 23-20-4053mgtubhbjmsvf glycol (GLYCOLAX) 17 gram packet Take 17 g by mouth in the morning and at bedtime. 07/18/2025 Active Start: 07-03-2025 End: 10-58-5812flznrjxcrcto glycol (GLYCOLAX) 17 gram packet Take 17 g by mouth in the morning. 07/05/2025 SuspendedStart: 12-09-2022 End: 28-39-6167ncqvigyxfjzx glycol (GLYCOLAX) packet 17 gpravastatin sodium 40 mg oral tablet (2 sources)HMG-CoA Reductase Inhibitortake 1 tablet by mouth once daily pravastatin 40 mg Tab take 1 tablet (40MG) by oral route every day 40 MG - ActivepredniSONE 20 mg oral tablet (1 source)Start: 08-14-2024 End: 86-60-8303liah 2 tablets by mouth in the morningpredniSONE (DELTASONE) 20 mg tablet Take 2 tablets (40 mg total) by mouth in the morning for 3 days. 6 tablet 08/14/2024 08/17/2024 Activesennosides, group home 8.6 mg oral tablet (7 sources)Start: 08-06-2025 End: 75-90-0899axoh 2 tablets by mouth once daily as needed for constipation senna (SENOKOT) 8.6 mg tablet Take 2 tablets (17.2 mg total) by mouth nightly as needed for constipation for up to 30 days. 08/06/2025 09/05/2025 Active sertraline 100 mg oral tablet (20 sources)Serotonin Reuptake InhibitorStart: 39-29-1524smre 1 tablet by mouth in the morningsertraline (ZOLOFT) 100 mg tablet TAKE 1 TABLET(100 MG) BY MOUTH IN THE MORNING 90 tablet 09/04/2025 ActiveStart: 07-02-2025 End: 58-18-4642ypoq 100 mg by mouth once mg, oral, Daily, First dose on Wed07/02/25 at 1815, Look-alike/sound-alike medication - verify indication for use.Start: 05-14-2025 End: 93-14-6123enbd 100 mg by mouth once zhaxw668 mg, oral, Daily, First dose on Wed05/14/25 at 0900, Look-alike/sound-alike medication - verify indication for use.Start: 01-28-2025 End: 58-01-6583rdjx 1 tablet by mouth in the morningsertraline (ZOLOFT) 100 mg tablet Take 1 tablet (100 mg total) by mouth in the morning. 30 tablet 1 07/31/2025 09/04/2025 DiscontinuedStart: 06-05-2024 End: 27-51-0852odyt 1 tablet by mouth in the morningsertraline (ZOLOFT) 100 mg tablet Indications: Major depressive disorder in partial remission, unspecified whether recurrent (CMS-HCC) Take 1 tablet (100 mg total) by mouth in the morning. 90 tablet 2 06/05/2024 11/24/2024 DiscontinuedStart: 08-10-2023 End: 19-33-8532xmhx 1 tablet by mouth in the morningsertraline (ZOLOFT) 100 mg tablet Indications: Major depressive disorder in partial remission, unspecified whether recurrent (CMS-HCC) Take 1 tablet (100 mg total) by mouth in the morning. 90 tablet 2 05/12/2024 06/02/2024 Discontinued (Reorder)Start: 91-73-1824qehz 100 mg by mouth once ppkaw346 mg, Oral, DAILY, First dose on Wed12/07/22 at 1645, Until Discontinued Completed/Discontinued Medications MedicationDrug Class(es)DatesSig (Normalized)Sig (Original)aluminum hydroxide 40 mg/ml / magnesium hydroxide 40 mg/ml / simethicone 4 mg/ml oral suspension (1 source)Start: 07-02-2025 End: 18-72-9036ltUCGYUyfm 2.5 mg oral tablet (20 sources)Dihydropyridine Calcium Channel BlockerStart: 11-11-2024 End: 18-79-1820xapc 1 tablet by mouth in the morningamLODIPine (NORVASC) 2.5 mg tablet Take 1 tablet (2.5 mg total) by mouth in the morning. 30 tablet 1 01/12/2024 11/24/2024 Discontinuedtake 1 tablet by mouth once dailyamLODIPine (Norvasc) 5 MG tablet Take 5 mg by mouth Daily Activeblood-glucose sensor (DEXCOM G6 SENSOR) device (7 sources) End: 79-42-0062rweow-glucose sensor (DEXCOM G6 SENSOR) device by miscellaneous route. 03/08/2024 Discontinued (Therapy completed)blood-glucose sensor (DEXCOM G6 SENSOR) device by miscellaneous route. 0 Qalozd653 ml calcium gluconate 20 mg/ml injection (1 source)Start: 05-14-2025 End: 08-38-5231xkjm 4-4.3 mg intravenously every hour as needed2,000 mg, intravenous, at 50 mL/hr, Administer over 2 Hours, As needed, ionized calcium 4 to 4.3 mg/dL, Starting on Wed05/14/25 at 1011, IV Administration of calcium via a central or deep vein preferred. Avoid administration in small hand veins VESICANT (RED)calcium gluconate 2,000 mg in sodium chloride 0.9 % 100 mL IVPB (1 source)Start: 07-02-2025 End: 16-76-1460mgdthkt gluconate 3,000 mg in sodium chloride 0.9 % 100 mL IVPB (2 sources)Start: 07-02-2025 End: 90-08-3021Uettz: 05-14-2025 End: 02-42-5487xmrj 3.5-3.9 mg intravenously every hour as needed3,000 mg, intravenous, at 43.3 mL/hr, Administer over 3 Hours, As needed, ionized calcium 3.5 to 3.9 mg/dL, Starting on Wed05/14/25 at 1011, IV Administration of calcium via a central or deep vein preferred. Avoid administration in small hand veins VESICANT (RED)calcium gluconate 4,000 mg in sodium chloride 0.9 % 250 mL IVPB (2 sources)Start: 07-02-2025 End: 48-89-6349Pfkam: 05-14-2025 End: 62-99-3217pewa 3.4 mg intravenously every hour as needed4,000 [...] %) IM injection (2 sources)Start: 02-09-2024 End: 99-47-0753xxlWQYXBrvu (ROCEPHIN) 1 g in lidocaine (XYLOCAINE) 10 mg/mL (1 %) IM injectioncefTRIAXone (ROCEPHIN) 1,000 mg in sodium chloride 0.9 % 50 mL IVPB W/ADAPTER (1 source)Start: 07-02-2025 End: 41-39-3662hyfd 1000 mg intravenously every twenty-four hours1,000 mg, intravenous, at 100 mL/hr, Administer over 30 Minutes, Every 24 hours, First dose on Wed07/02/25 at 1815, For Vial-2-Bag: Attach bag and vial to adapter - Use immediately after activating; dissolve drug prior to administration., Indication: UTIclopidogrel 75 mg oral tablet (20 sources)P2Y12 Platelet InhibitorStart: 09-29-2022 End: 80-91-2676tzby 1 tablet by mouth in the morningclopidogreL (PLAVIX) 75 mg tablet Take 1 tablet (75 mg total) by mouth in the morning. 09/29/2022 Discontinuedcyclobenzaprine hydrochloride 10 mg oral tablet (3 sources)Muscle RelaxantStart: 01-11-2025 End: 01-83-1303gcqjkipvheycmgt (FLEXERIL) 10 mg tablet Take 1 tablet (10 mg total) by mouth 2 (two) times a day asneeded for muscle spasms for up to 3 doses. 3 tablet 01/11/2025 01/22/2025 Discontinued (Duplicate Listing)DAPTOmycin (CUBICIN) 500 mg in sodium chloride 0.9 % 50 mL IVPB (9 sources)Start: 04-03-2025 End: 36-67-2889494 mg, intravenous, at 120 mL/hr, Administer over 30 Minutes, Once, On Wed04/03/25 at 0800, For 1 dose, Pathogen: MRSA and unable to use vancomycin, Approved Indications: Bacteremia, Authorizing Service: ID consult has been placedStart: 03-30-2025 End: 17-03-4172402 mg, intravenous, at 120 mL/hr, Administer over 30 Minutes, Once, On Wed03/30/25 at 0800, For 1 dose, Pathogen: MRSA and unable to use vancomycin, Approved Indications: Bacteremia, Authorizing Service: ID consult has been placedStart: 03-28-2025 End: 19-83-1892438 mg, intravenous, at 120 mL/hr, Administer over 30 Minutes, Once, On Wed03/28/25 at 0815, For 1 dose, Pathogen: MRSA and unable to use vancomycin, Approved Indications: Bacteremia, Authorizing Service: ID consult has been placedStart: 03-26-2025 End: 31-68-4562040 mg, intravenous, at 120 mL/hr, Administer over 30 Minutes, Once, On Wed03/26/25 at 0930, For 1 dose, Pathogen: MRSA and unable to use vancomycin, Approved Indications: Bacteremia, Authorizing Service: ID consult has been placedStart: 03-24-2025 End: 62-11-2117377 mg, intravenous, at 120 mL/hr, Administer over 30 Minutes, Once, On Wed03/24/25 at 0800, For 1 dose, DOSE ADMINISTRATION TIME: 0800 on 03/24/2025, Pathogen: MRSA and unable to use vancomycin, Approved Indications: Bacteremia, Authorizing Service: ID consult has been placedStart: 03-22-2025 End: 90-03-6638860 mg, intravenous, at 120 mL/hr, Administer over 30 Minutes, Once, On Wed03/22/25 at 0830, For 1 dose, Pathogen: MRSA and unable to use vancomycin, Approved Indications: Bacteremia, Authorizing Service: ID consult has been placedStart: 03-20-2025 End: 41-82-5840345 mg, intravenous, at 120 mL/hr, Administer over 30 Minutes, Once, On Wed03/20/25 at 0815, For 1 dose, Pathogen: MRSA and unable to use vancomycin, Approved Indications: Bacteremia, Authorizing Service: ID consult has been placedStart: 03-14-2025 End: 62-20-6350261 mg, intravenous, at 120 mL/hr, Administer over 30 Minutes, Once, On Wed03/14/25 at 0830, For 1 dose, Pathogen: MRSA and unable to use vancomycin, Approved Indications: Bacteremia, Authorizing Service: ID consult has been placedStart: 03-12-2025 End: 29-09-6361872 mg, intravenous, at 120 mL/hr, Administer over 30 Minutes, Once, On Wed03/12/25 at 0800, For 1 dose, Pathogen: MRSA and unable to use vancomycin, Approved Indications: Bacteremia, Authorizing Service: ID consult has been placedDAPTOmycin in 0.9 % sod chlor 500 mg/50 mL piggyback (15 sources)Start: 02-23-2025 End: 87-90-0070RAYQNsuoff in 0.9 % sod chlor 500 mg/50 mL piggyback Infuse 500 mg into a venous catheter every other day for 40 days. 1 mL 02/23/2025 04/04/2025 Discontinued (Therapy completed)Start: 02-23-2025 End: 76-99-9839GIPKGgqmsr in 0.9 % sod chlor 500 mg/50 mL piggyback Infuse 500 mg into a venous catheter every other day for 40 days. 1 mL 02/23/2025 04/04/2025 ActiveDEXCOM G6 [employer]EVER[employer] misc (7 sources)Start: 05-06-2023 End: 77-74-8170QEGFED G6 DIRECT[employer]EVERAGE misc 1 Device by drain unit route See Admin Instructions. 05/06/2023 03/08/2024 Discontinued (Therapy completed)Start: 96-24-0677OQQXJV G6 [employer]EVER[employer] misc 1 Device by drain unit route See Admin Instructions. 0 05/06/2023 Activedextromethorphan hydrobromide 1.5 mg/ml / pyrilamine maleate 1.5 mg/ml oral solution (4 sources)Uncompetitive V-rfinzw-T-aspartate Receptor Antagonist, Sigma-1 AgonistStart: 12-15-2023 End: 08-65-1423ipii 5 mL by mouth every eight hours as needed for cough and congestionpyrilamine-dextromethorphan 7.5-7.5 mg/5 mL liquid Indications: Upper respiratory tract infection, unspecified type Take 5 mL by mouth every 8 (eight) hours as needed (cough and congestion). 100 mL 12/15/2023 03/02/2024 Discontinued (Therapy completed)docusate sodium 50 mg / sennosides, group home 8.6 mg oral tablet (2 sources)Start: 07-02-2025 End: 16-50-7733rknk 1 tablet by mouth every twelve hours as needed for constipationStart: 05-13-2025 End: 85-73-5083oxhn 1 tablet by mouth every twelve hours as needed for constipation1 tablet, oral, Every 12 hours PRN, constipation, Starting on 05/13/25 at 1445, Scheduling/ADTfolic acid 1 mg oral tablet (16 sources)Start: 02-25-2025 End: 24-91-5899lrdp 1 tablet by mouth in the morningfolic acid (FOLVITE) 1 mg tablet Take 1 tablet (1 mg total) by mouth in the morning. 02/25/2025 05/13/2025 Discontinued (Therapy completed)glucagon (rdna) 1 mg injection (13 sources)Antihypoglycemic AgentStart: 07-02-2025 End: 17-83-8898Zbcjn: 05-13-2025 End: mg, intramuscular, As needed, low [...] 70 mg/dL after initial treatment, repeat treatment.Start: 27-35-3015nkodnhyt (rDNA) injection 1 mgglucagon (GLUCAGEN DIAGNOSTIC KIT INJ) Inject as directed. Xngrfh303 ml glucose 50 mg/ml injection (11 sources)Start: 07-02-2025 End: 08-74-1198Ufmkx: 07-02-2025 End: 29-80-9934Okvgn: 07-02-2025 End: 25-41-2222Nsfur: 05-13-2025 End: g, oral, As needed, low [...] VESICANT (RED) Warning: HYPERTONIC solution.Start: 05-13-2025 End: 52-57-4586uoxt 70 mg intravenously every siyb642 mL/hr, intravenous, Continuous PRN, blood glucose less than 70 mg/dL, Starting on Wed05/13/25 at 1445, Scheduling/ADT, Use immediately following dextrose 50% or glucagon treatment for patients who are unconscious or NPO. Contact prescriber for additional orders. If blood glucose is not greater than 70 mg/dL after initial treatment, repeat treatment.Start: 16-58-9123vehh 25 mL intravenously every hour as fxohek04 mL/hr, intravenous, Continuous PRN, When mainline IV needed., Starting on Wed03/23/25 at 1412, Match IVF to base solution of product being administered to ensure compatibility.Start: 58-95-3239xalz 25 mL intravenously every hour as mpubyp94 mL/hr, intravenous, Continuous PRN, When mainline IV needed., Starting on Wed03/22/25 at 0820, Match IVF to base solution of product being administered to ensure compatibility.Start: 11-62-2497ebwkcoab 10 % infusionStart: 23-21-5378qmkqommw bolus 10% 125 mLStart: 37-88-1762wgsbods chewable tablet 16 g12 hr guaiFENesin 600 mg extended release oral tablet (1 source)Start: 2024 End: 41-21-6222blwt 1 tablet by mouth onceguaiFENesin (MUCINEX) 600 [...] pen injector (20 sources)Insulin AnalogStart: 07-02-2025 End: 46-49-8494Wutxz: 07-02-2025 End: -10 Units, subcutaneous, 3 times [...] or immediately after a meal.Start: 05-13-2025 End: 76-55-4746vlunun 400 mg by subcutaneous injection once daily, [...] or immediately after a meal.Start: 05-13-2025 End: 48-10-5899wlhart 400 mg by subcutaneous injection three times [...] 15 minutes before or immediately aftera meal.Start: 06-93-1885opzpumm lispro (HumaLOG) 100 unit/mL insulin pen Inject 2-10 Units under the skin 4 (four) times a day with meals and nightly. 151-200 mg/dL, give 2 units. 201-250 mg/dL, give 4 units. 251-300 mg/dL,give 6 units. 301-350 mg/dL, give 8 units 351-400 mg/dL, give 10 units 15 mL 12 02/24/2025 ActiveStart: 07-05-2024 End: 55-97-9620lmxkrjo lispro (HumaLOG) 100 unit/mL insulin pen Inject 6 Units under the skin in the morning and 6Units at noon and 6 Units in the evening. 07/05/2024 01/22/2025 Discontinued (Duplicate Listing)Start: 98-92-5623oozmbki lispro (HumaLOG) 100 unit/mL insulin pen 08 units at each meals 07/05/2024 ActiveStart: 08-18-2023 End: 99-60-2066skeffy 2 [IU] by subcutaneous injection four times daily at mealtimeinsulin lispro (HumaLOG KwikPen Insulin) 100 unit/mL insulin pen Indications: Mixed diabetic hyperlipidemia associated with type 2 diabetes mellitus ([facility]) Inject 2 Units under the skin 4 [...] injection 180 mL (1 source)Start: 01-13-2023 End: 30-35-6685trppvgtyi (ISOVUE-370) 76 % injection 180 mL50 ml magnesium sulfate 40 mg/ml injection (4 sources)Start: 07-02-2025 End: 60-53-0863Iqota: 07-02-2025 End: 60-77-9705Kdqso: 05-14-2025 End: ,000 mg, intravenous, at 25 [...] oral tablet (16 sources)alpha-Adrenergic AgonistStart: 02-24-2025 End: 54-13-0335kngr 1 tablet by mouth three times daily as neededmidodrine (PROAMATINE) 5 mg tablet Take 1 tablet (5 mg total) by mouth 3 (three) times a day as needed (SBP less than 90). 02/24/2025 05/13/2025 Discontinued (Therapy completed)[facility] ([facility] sources)Start: 01-01-2021 End: 70-08-5517ynmhipjdmosgf medical supply [employer] Indications: Medication management 1 Unit by miscellaneous route See Admin Instructions. Split oral medication as indicated 1 each 01/01/2021 03/02/2024 Discontinued(Therapy completed)Start: 63-61-9494dpaivdqwzhnam medical supply [employer] Indications: Medication management 1 Unit by miscellaneous route See Admin Instructions. Split oral medication as indicated 1 each 0 01/01/2021 Active2 ml ondansetron 2 mg/ml injection (20 sources)Serotonin-3 Receptor AntagonistStart: 07-02-2025 End: 22-93-2457ucru 4 mg intravenously every four hours as needed for nausea and vomiting4 mg, intravenous, Every 4 hours PRN, nausea, vomiting, Starting on Wed07/02/25 at 1811, Intravenous administration preferred to be given over 2-5 minutes.Start: 05-13-2025 End: 63-06-5451sywm 4 mg intravenously every six hours as needed for nausea and vomiting4 mg, intravenous, Every 6 hours PRN, nausea, vomiting, Starting on Wed05/13/25 at 1445, Scheduling/ADT, Intravenous administration preferred to be given over 2-5 minutes.Start: 66-23-6714vbcd 1 tablet by mouth every eight hours as needed for nauseaondansetron ODT (ZOFRAN ODT) 4 mg disintegrating tablet Dissolve 1 tablet (4 mg total) on tongue every 8 (eight) hours as needed for nausea for up to 10 doses. 10 tablet 10/11/2024 ActiveStart: 09-27-2023 End: 02-61-3689znzn 1 tablet by mouth every eight hours as needed for nausea ondansetron ODT (ZOFRAN ODT) 4 mg disintegrating tablet Dissolve 1 tablet (4 mg total) on tongue every 8 (eight) hours as needed for nausea for up to 10 doses. 10 tablet 0 09/27/2023 12/15/2023 Discontinued (Therapy completed)Start: 12-07-2022 End: 54-45-6377ddxsrmrffog (ZOFRAN) injection 4 mgtake 1 tablet by mouth every six hours as needed for nausea and vomitingondansetron (ZOFRAN) 4 mg tablet Take 1 tablet (4 mg total) by mouth every 6 (six) hours as needed for nausea or vomiting. Activepiperacillin 3000 mg / tazobactam 375 mg injection (1 source)Penicillin-class Antibacterial, beta Lactamase InhibitorStart: 05-13-2025 End: 19-65-5184gkww 3.375 g intravenously every eight hours3.375 g, intravenous, at 12.5 mL/hr, Administer over 4 Hours, Every 8 hours, First dose on Sun at 1600, Scheduling/ADT, Start 4 hours after 4.5gram dose, Indication: Sepsis Potassium Chloride (2 sources)Start: 07-04-2025 End: 03-15-0546uhhqlkwue chloride (K-TAB,KLOR-CON) CR tablet 30-50 mEqStart: 05-14-2025 End: 54-47-8320ddfmqcyxc chloride (K-TAB,KLOR-CON) CR tablet 30-50 mEq Promethazine (1 source)PhenothiazineStart: 07-02-2025 End: 23-99-0319jegy 1 tablet by mouth every six hours [...] (20 sources)Dipeptidyl Peptidase 4 InhibitorStart: 03-12-2024 End: 87-27-3542fyzj 1 tablet by mouth in the morningJANUVIA 50 mg tablet TAKE 1 TABLET (50 MG TOTAL) BY MOUTH IN THE MORNING 03/12/2024 11/24/2024 Discontinued Start: 08-10-2023 End: 48-85-6147jxtj 1 tablet by mouth in the morningSITagliptin phosphate (JANUVIA) 50 mg tablet Indications: Type 2 diabetes mellitus with stage 3b chr onic kidney disease and hypertension ([facility]) Take 1 tablet (50 mg total) by mouth in the morning.90 tablet 2 12/15/2023 Activetake 1 tablet by mouth once dailySITagliptin (Januvia) 25 MG tablet Take 25 mg by mouth Daily Activetake 1 tablet by mouth once dailysitaGLIPtin (JANUVIA) 50 MG tablet Take 50 mg by mouth daily. 0 Xmirew278 ml sodium chloride 9 mg/ml prefilled syringe (20 sources)Start: 07-02-2025 End: mL, intravenous, Every 12 hours scheduled, First dose on Wed07/02/25 at 2100Start: 07-02-2025 End: 18-43-2720fcxc 50 mL intravenously every hour50 mL/hr, intravenous, Continuous, Starting on Wed07/02/25 at 1815, For 1 dayStart: 07-02-2025 End: 24-12-7033Madxk: 07-02-2025 End: 52-12-5148Kmyys: 05-13-2025 End: 04-83-2114zeto 75 mL intravenously every hour75 mL/hr, intravenous, Continuous, Starting on Wed05/13/25 at 1450, Scheduling/ADTStart: 05-13-2025 End: 81-97-2163nhms 20 mL intravenously every hour as mL/hr, intravenous, Continuous PRN, to maintain patency of lines, Starting on Wed05/13/25 at 1445, Scheduling/ADTStart: 05-13-2025 End: 77-93-8200zuxx 25 mL intravenously every hour as mL, intravenous, at 100 mL/hr, Administer over 15 Minutes, As needed, line care, line care after IVPB administration, Starting on Wed05/13/25 at 1445, Scheduling/ADTStart: 05-13-2025 End: ,710 mL (30 mL/kg 57 kg Tennyson weight), intravenous, at 1,682 mL/hr, Administer over 61 Minutes, Once, On Wed05/13/25 at 1110, For 1 dose Start: 05-13-2025 End: mL, intravenous, As needed, line care, before and after each intermittent use, Starting on Wed05/13/25 at 1034Start: 79-53-4010rugs 25 mL intravenously every hour as etcjdj56 mL/hr, intravenous, Continuous PRN, When mainline IV needed., Starting on Wed03/30/25 at 0750, Match IVF to base solution of product being administered to ensure compatibility.Start: 93-45-2734lvwo 25 mL intravenously every hour as crubrc93 mL/hr, intravenous, Continuous PRN, When mainline IV needed., Starting on Wed03/23/25 at 1412, Match IVF to base solution of product being administered to ensure compatibility.Start: mL, intravenous, As needed, line care, to lumen(s) as needed before and after each use., Starting on Wed03/22/25 at 0947Start: 76-76-8659wpgn 25 mL intravenously every hour as uyurdd24 mL/hr, intravenous, Continuous PRN, When mainline IV [...] each use., Starting on Wed03/14/25 at 1151Start: 78-13-535699 mL, intravenous, As needed, line care, to lumen(s) as needed before and after each use., Starting on Wed03/12/25 at 0757Start: 01-13-2023 End: .9 % sodium chloride infusionStart: 18-85-9459dddl 1 dose intravenously twice daily5-40 mL, IntraVENous, [...] or Central Line = 20 mL/lumen Recovery(Cath)Start: 20-07-4654HdshwVAKumh, at 5-250 mL/hr, PRN, if patient receiving [...] less into rate field of order. Recovery(Cath)Start: 94-04-9891smxz 5-40 mL intravenously once as needed 5-40 [...] 250 mL IVPB (2 sources)Start: 07-02-2025 End: 34-37-6652rjxdef phosphate 20 mmol in sodium chloride 0.9 % 250 mL IVPB Start: 05-14-2025 End: 53-90-3632rrgzrq phosphate 20 mmol in sodium chloride 0.9 % 250 mL IVPB traMADol hydrochloride 50 mg oral tablet (3 sources)Opioid AgonistStart: 05-12-2025 End: 82-58-8886vbbg 1 tablet by mouth every six hours as needed for pain and pain50 mg, oral, Every 6 hours PRN, severe pain - pain scale 7-10, moderate pain - pain scale 4-6, Starting on Wed05/14/25 at 0138, Look-alike/sound-alike medication - verify indication for use.traZODone hydrochloride 50 mg oral tablet (20 sources)Serotonin Reuptake InhibitorStart: 07-02-2025 End: 83-39-4258mets 100 mg by mouth once mg, oral, Nightly, First dose on Wed07/02/25 at 2200, Look-alike/sound-alike medication - verify indication for use.Start: 09-28-2023 End: 49-89-2425bxll 1 tablet by mouth once dailytraZODone (DESYREL) 100 mg tablet Indications: Insomnia, unspecified type TAKE 1 TABLET BY MOUTH EVERY DAY AT NIGHT 90 tablet 1 11/28/2024 Activevitamin b12 0.5 mg oral tablet (20 sources)Vitamin U14Upsip: 07-02-2025 End: 18-17-9139eoud 1000 ug by mouth once daily1,000 mcg, oral, Daily, First dose on Wed07/02/25 at 1815Start: 02-63-0449zznd 1 tablet by mouth in the morningcyanocobalamin 1000 MCG tablet Take 1 tablet (1,000 mcg total) by mouth in the morning. 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]Onset: 334075-50-7111NawglalQkmcdoe dysrhythmias (20 sources)Atrial fibrillation with rapid ventricular response; Translations: [Unspecified atrial fibrillation]Onset: 330915-73-7833BhgazdbFqpwujgy (20 sources)Pseudophakia; Translations: [Presence of intraocular lens]Onset: 39-26-3958ReizkbbWtgpsfw kidney disease (20 sources)Chronic kidney disease; Translations: [Chronic kidney disease, unspecified]Onset: 897183-49-7453PalefeuRxfxjxs kidney disease (6 sources)Chronic kidney disease; Translations: [Chronic kidney disease, stage 3a]Onset: 37-53-4643Aodbtqw obstructive pulmonary disease and bronchiectasis (20 sources)Chronic obstructive pulmonary disease, unspecified; Translations: [Chronic obstructive lung disease]Onset: 099203-86-2862MdhtxovQgzxwceqld disorders (20 sources)Left bundle branch block; Translations: [Left bundle-branch block, unspecified]Onset: 373448-30-6540PyidtkbLlsuvtflmj heart failure; nonhypertensive (20 sources)Acute on chronic diastolic heart failure; Translations: [Acute on chronic diastolic (congestive) heart failure]Onset: 10-05-2022 Resolved: 083080-54-6105HdoklawLxpjvhys atherosclerosis and other heart disease (20 sources)Disorder of coronary artery; Translations: [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]Onset: 10-14-2021 38-97-3122CrmcwvtMvorzxjcco and other anemia (20 sources)Anemia of chronic disease; Translations: [Anemia in other chronic diseases classified elsewhere]Onset: 575109-57-6248JircrimHqobdklbmz and other anemia (1 source)Iron deficiency anemia due to blood loss; Translations: [Iron deficiency anemia secondary to blood loss (chronic)]17-45-9275RugaclsGxqunipmxf and other anemia (1 source)Iron deficiency anemia secondary to blood loss (chronic); Translations: [Iron deficiency anemia secondary to blood loss (chronic)]Onset: 44-95-0329KajglmqSkkltgnrbm and other anemia (1 source)Anemia in other chronic diseases classified elsewhere; Translations: [Anemia in other chronic diseases classified elsewhere]Onset: 13-57-4563Khhbqkn Deficiency and other anemia (6 sources)Anemia; Translations: [Anemia, unspecified]Onset: 01-13-2023 73-96-5231BcrquuwmHkgvixin mellitus with complications (20 sources)Type 2 diabetes mellitus; Translations: [Type 2 diabetes mellitus with diabetic neuropathy, unspecified]Onset: 105792-88-2530MutpcrcRlfazewz mellitus without complication (20 sources)Type 2 diabetes mellitus without complications; Translations: [Insulin treated type 2 diabetes mellitus]Onset: hronic Disorders of lipid metabolism (3 sources)Pure hypercholesterolemia, unspecified; Translations: [Mixed hyperlipidemia]Onset: 48-90-0561QzttrkaG Codes: Fall (1 source)FallOnset: 38-82-5558Mymwegmurg disorders (20 sources)Gastro-esophageal reflux disease without esophagitis; Translations: [Gastroesophageal reflux disease without esophagitis]Onset: ChronicEssential hypertension (20 sources)Essential (primary) hypertension; Translations: [Essential hypertension]Onset: 09-14-2019 Resolved: 248763-53-6351XpbmwccUhewmrwe of neck of femur (hip) (20 sources)Closed fracture of hip; Translations: [Closed fracture of femur, lesser trochanter]Onset: 849096-69-4737AxpekfqfZkcwj valve disorders (20 sources)Nonrheumatic aortic (valve) stenosis; Translations: [Aortic valve disorders]Onset: 10-05-2022 Resolved: 594582-70-3506WqesakvBklsdkqjehbh with complications and secondary hypertension (20 sources)Hypertensive heart AND renal disease; Translations: [Hypertensive heart and chronic kidney disease with heart failure and stage 1 through stage 4 chronic kidney disease, or unspecified chronic kidneydisease]Onset: 04-02-2023 45-70-7493SuyelfiHsexevx and fatigue (20 sources)Asthenia; Translations: [Weakness]Onset: EpisodicMood disorders (20 sources)Major depressive disorder, single episode, unspecified; Translations: [Moderate recurrent major depression]Onset: 01-30-2019 Resolved: 205255-96-2565XcsqdrnEifxxa and vomiting (20 sources)Intractable nausea and vomiting; Translations: [Nausea with vomiting, unspecified]Onset: 962300-05-9094HloiszjzWssbrnaqflucrp (20 sources)Primary gonarthrosis, bilateral; Translations: [Bilateral primary osteoarthritis of knee]Onset: 202395-78-1508KclzlfpDiysp aftercare (1 source)Other fpc (current) drug therapy; Translations: [OTH BEATER BOSS CURRENT 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]Onset: 13-98-8724WeedrjmdEwcgq aftercare (1 source)Post-discharge follow-up; Translations: [Encounter for follow-up examination after completed treatment for conditions other than malignant neoplasm]22-32-3130VgxnecumVrwcb bone disease and musculoskeletal deformities (14 sources)Lesion of left thigh bone; Translations: [Disorder of bone, unspecified]Onset: 548288-72-3189UluoqaaaQxgju bone disease and musculoskeletal deformities (1 source)Disorder of bone, unspecified; Translations: [Disorder of bone, unspecified]Onset: 26-29-3176IdgkrccsSofkq circulatory disease (6 sources)History of angioplasty; Translations: [Peripheral vascular angioplasty status with implants and grafts]Onset: 650942-73-6279Xcjraup Other endocrine disorders (2 sources)Hypoglycemia; Translations: [Hypoglycemia, unspecified]06-21-2024 ChronicOther endocrine disorders (2 sources)Hypoglycemia, unspecified; Translations: [Hypoglycemia, unspecified] Onset: 40-42-1487TvaocgqFnjsw eye disorders (3 sources)Vitreous degeneration, bilateral; Translations: [PVD (posterior vitreous detachment), both eyes]Onset: 77-48-6856AeojzagUjnsg female genital disorders (20 sources)Mass of uterine adnexa; Translations: [Other specified conditions associated with female genital organs and menstrual cycle]Onset: 07-03-2025 91-95-2442McrrsbgaReexc female genital disorders (2 sources)Other specified conditions associated with female genital organs and menstrual cycle; Translations:[Other specified conditions associated with female genital organs and menstrual cycle]Onset: 63-96-6211VcyhuzvvFwvge fractures (20 sources)Fracture of pelvis; Translations: [Fracture of unspecified parts of lumbosacral spine and pelvis, initial encounter for closed fracture]Onset: 169136-20-1843BbamjywzSkmlv fractures (1 source)Closed fracture of pelvis; Translations: [Fracture of unspecified parts of lumbosacral spine and pelvis, subsequent encounter for fracture with routine healing]42-28-1288SpzejmmzKtuzz fractures (1 source)Fracture of unspecified parts of lumbosacral spine and pelvis, initial encounter for closed fracture; Translations: [Fracture of unspecified parts of lumbosacral spine and pelvis, initial encounter for closed fracture]Onset: 49-04-9441MlqqiohuCtffg lower respiratory disease (2 sources)Shortness of breath; Translations: [Shortness of breath]Onset: 29-12-7357SkvlbvloFuzin nervous system disorders (20 sources)Cerebral ventriculomegaly; Translations: [Other specified disorders of brain]Onset: 713228-90-1517FppswxlYbppg nervous system disorders (20 sources)Normal pressure hydrocephalus; Translations: [(Idiopathic) normal pressure hydrocephalus]Onset: 326016-23-9156CheqfrgAqgub nervous system disorders (20 sources)Difficulty walking; Translations: [Difficulty in walking, not elsewhere classified]Onset: 536494-20-3209HobumphAidlf nervous system disorders (2 sources)(Idiopathic) normal pressure hydrocephalus; Translations: [(Idiopathic) normal pressure hydrocephalus]Onset: 83-58-2080FlgsqsvQeoed nervous system disorders (2 sources)Presence of cerebrospinal fluid drainage device; Translations: [Presence of cerebrospinal fluid drainage device]Onset: 18-95-3855KymvoknMkeku nervous system disorders (1 source)Other chronic pain; Translations: [Other chronic pain]Onset: 11-93-8454GdxdzmnXxqtg nervous system disorders (1 source)Tremor, unspecified; Translations: [Tremor, unspecified]Onset: 84-65-7760UmmrsvxjWbrct nervous system disorders (2 sources)Unspecified abnormalities of gait and mobility; Translations: [Unspecified abnormalities of gait and mobility]Onset: 16-89-5393UxmeqncmCifmv non-traumatic joint disorders (20 sources)Hip pain; Translations: [Pain in right hip]Onset: 05-11-2025 58-56-8442MtfeblveUdebf non-traumatic joint disorders (1 source)Pain in right hip; Translations: [Pain in right hip]Onset: 07-10-2025 EpisodicOther nutritional; endocrine; and metabolic disorders (20 sources)Obesity; Translations: [Obesity, unspecified]Onset: 04-11-2024 28-86-9670DdzjjehNlmor nutritional; endocrine; and metabolic disorders (20 sources)Hypomagnesemia; Translations: [Hypomagnesemia]Onset: 06-14-2024 26-11-3768FlzpwiaLojuu nutritional; endocrine; and metabolic disorders (2 sources)Hypomagnesemia; Translations: [Hypomagnesemia]Onset: 06-14-2024 ChronicOther upper respiratory disease (1 source)Rhinitis; Translations: [Chronic rhinitis]12-03-1666Trffubw Pathological fracture (20 sources)Pathological fracture of proximal end of femur; Translations: [Pathological fracture, hip, unspecified, initial encounter for fracture]Onset: 17-15-713637941737-66-9669DakqxybySwnnaeqwza and visceral atherosclerosis (20 sources)Peripheral vascular disease, unspecified; Translations: [Peripheral vascular disease]Onset: 054612-40-3489FkywqwgIkdajped codes; unclassified (2 sources)Obstructive sleep apnea (adult) (pediatric); Translations: [OBSTRUCTIVE SLEEP APNEA]Onset: 46-41-9630DbpihfsJduurtrz codes; unclassified (20 sources)Obstructive sleep apnea syndrome; Translations: [Obstructive sleep apnea (adult) (pediatric)]Onset: 845542-73-4091BfmoqdiOvsfmgoe codes; unclassified (5 sources)H/O: blood transfusion; Translations: [Personal history of other medical treatment]Onset: 543466-65-8859BbqpofwdZgaywfgx codes; unclassified (6 sources)Family history of coronary arteriosclerosis; Translations: [Family history of ischemic heart disease and other diseases of the circulatory system] Onset: 345994-41-6848GsnbxptiOwmezcyh codes; unclassified (1 source)Family history of ischemic heart disease and other diseases of the circulatory system; Translations: [Family history of ischemic heart disease and other diseases of the circulatory system]Onset: 30-55-8407HpztdmekVewxphho codes; unclassified (2 sources)Other amnesia; Translations: [Other amnesia]Onset: 97-63-0153Dlhatakx Residual codes; unclassified (2 sources)Confusional state; Translations: [Disorientation, unspecified]Onset: 781065-94-3734ZcjpnapbHqsrytbf codes; unclassified (1 source)Estrogen receptor positive status [ER+]; Translations: [Estrogen receptor positive status (ER+)]Onset: 46-44-7170KnkpzbjgUrjqpnd detachments; defects; vascular occlusion; and retinopathy (20 sources)Venous retinal branch occlusion; Translations: [Retinal edema]Onset: 03-16-0707KcuknngQuwkvnrpg malignancies (20 sources)Secondary malignant neoplasm of bone; Translations: [Secondary malignant neoplasm of bone]Onset: 193614-89-2746QjwxopuKiptowkos malignancies (1 source)Secondary malignant neoplasm of bone; Translations: [Secondary malignant neoplasm of bone]Onset: 38-76-7252AnaqsrxJtqqwneeknb; intervertebral disc disorders; other back problems (20 sources)Herniation of nucleus pulposus of lumbar intervertebral disc; Translations: [Other intervertebral disc displacement, lumbar region]Onset: 013246-12-7376TdfxepoWcunlce and intentional self-inflicted injury (4 sources)Poisoning by insulin and oral hypoglycemic [antidiabetic] drugs, intentional self-harm, initial encounter; Translations: [PSN INSULIN ORL HG RX SLF-HRM INIT]Onset: 78-46-4400VsrjxdlvBivplusxkoji (1 source)CONTACT W/AND (SUSP) EXPOS COVID-19; Translations: [CONTACT W/AND (SUSP) EXPOS COVID-19]Onset: 16-29-1804Gbkqepylcdml (1 source)tcmOnset: 91-36-6896Uqxsfzjsbrsh (8 sources)Autogenerated ProblemOnset: 871963-92-3075Svdaffzzigcp (1 source)Post-opOnset: 47-61-3899Ugbvzbtsexzg (1 source)Weakness - GeneralizedOnset: 14-23-2093Mhckbgjgzfay (1 source)Low back pain, unspecified; Translations: [Low back pain, unspecified] Onset: 15-34-0008Iuugwmicvjal (1 source)Outpatient InfusionOnset: 70-03-9338Qutjiwnzieyt (1 source)Medical ScreeningOnset: 22-11-3784Hasncqodulut (1 source)Female DysuriaOnset: 94-34-4845Aupkkozrigzi (1 source)Low Blood Sugar - No SymptomsOnset: 64-90-9016Kfixnxdvlqpu (1 source)Low Blood Sugar - SymptomaticOnset: 65-20-4348Lqrnkdvzgymd (1 source)Painful UrinationOnset: 60-88-1741Howrafujvdrb (1 source)IllOnset: 00-83-2417Wwjtpqx tract infections (20 sources)Acute cystitis without hematuria; Translations: [Acute cystitis] Onset: 271035-64-6334Sjtuhuhy Past or Other Problems Problem ClassificationProblemDateDocumented DateEpisodic/ChronicAbdominal pain (1 source)Abdominal painOnset: 97-96-1937ExjdxebxOadmj and unspecified renal failure (20 sources)Acute injury of kidney; Translations: [Acute kidney failure, unspecified]Onset: 63-93-2077FffnlsygYtvtm myocardial infarction (20 sources)Myocardial infarction; Translations: [Non-ST elevation (NSTEMI) myocardial infarction]Onset: 09-28-2022 Resolved: 030546-33-1108QsvvsbzAhiudhjeggoxjm/social admission (20 sources)Finding of activity of daily living; Translations: [Limitation of activities due to disability]Onset: 658076-43-2286EzcqkupxMebpfmuhp infection; unspecified site (20 sources)Methicillin resistant Staphylococcus aureus infection; Translations: [Methicillin resistant Staphylococcus aureus infection as the cause of diseases classified elsewhere]Onset: 160701-97-2720RajgmeqbRmstgvbmrx associated with dizziness or vertigo (20 sources)Dizziness; Translations: [Dizziness and giddiness]Onset: 09-14-2019 Resolved: 385130-70-2360TgapvbbbRnfnsgxrnq and other anemia (20 sources)Iron deficiency anemia secondary to inadequate dietary iron intake; Translations: [Other iron deficiency anemias]Onset: 492529-30-9376Pgnmrmdj Deficiency and other anemia (20 sources)Iron deficiency anemia; Translations: [Iron deficiency anemia, unspecified]Onset: 765646-69-6778UmksnyuxH Codes: Fall (1 source)Unspecified fall, initial encounter; Translations: [Unspecified fall, initial encounter]Onset: 26-45-7323HadtmvzzZewjx of unknown origin (1 source)Fever, unspecified; Translations: [Fever, unspecified]Onset: 43-13-3039QgbsfvnyHcari and electrolyte disorders (20 sources)Lactic acidosis; Translations: [Lactic acidosis]Onset: 06-14-2024 64-56-0183OqclqurnWuhfmzpobyiyjvou hemorrhage (20 sources)Gastrointestinal hemorrhage; Translations: [Gastrointestinal hemorrhage, unspecified]Onset: 509109-94-6144CalamrvdXtmgphyddwshx symptoms and ill-defined conditions (20 sources)Total urinary incontinence; Translations: [Continuous leakage]Onset: 03-19-2019 Resolved: 864310-23-3340MugiariGinqm valve disorders (20 sources)Heart murmur; Translations: [Cardiac murmur, unspecified]Onset: 369388-58-7045MpqlqwnwDiwvddmodmsoz and screening for infectious disease (2 sources)Needs influenza immunization; Translations: [Encounter for immunization]Onset: 996113-34-2556McuhppbzKrgb disorders (20 sources)Mood disordersOnset: 10-28-2024 Resolved: 830597-55-1662Lttckko (3 sources)Candidal intertrigo; Translations: [Candidiasis of skin and nail] Onset: 148713-75-2781EshlgtvcQgwpr aftercare (3 sources)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; Translations: [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 BOSS CURRENT USE OF INSULIN]Onset: 75-59-3179FlrxnplsVeclq connective tissue disease (20 sources)Muscle weakness; Translations: [Muscle weakness (generalized)]Onset: 967867-58-2146QflaxgtcAdxuk connective tissue disease (20 sources)Other symptoms and signs involving the musculoskeletal system; Translations: [Other musculoskeletalsymptoms referable to limbs]Onset: 08-31-2018 Resolved: 594577-33-4049QjryofziKespx connective tissue disease (5 sources)Paraparesis; Translations: [Other symptoms and signs involving the musculoskeletal system]Onset: 08-31-2018 Resolved: 704470-22-6578BvdbtqtkThjqx connective tissue disease (1 source)Pain in lower limbOnset: 92-76-2419NgeiestoTvdfu fractures (20 sources)Closed fracture pubis; Translations: [Unspecified fracture of left pubis, subsequent encounter for fracture with routine healing]Onset: 03-28-2023 68-45-0301YpaiynkmNiszq gastrointestinal disorders (20 sources)Constipation; Translations: [Constipation, unspecified]Onset: 877575-78-4124VosweyhoJwgzc inflammatory condition of skin (1 source)ItchingOnset: 89-39-0402ShekfgkmSzqfw injuries and conditions due to external causes (2 sources)Other injury of unspecified body region, initial encounter; Translations: [Other injury of unspecified body region, initial encounter]Onset: 63-12-8585NmyzyfxqYphpp lower respiratory disease (2 sources)Hypoxemia; Translations: [Hypoxemia]Onset: 69-82-8222JrfndqktFwlmj lower respiratory disease (20 sources)Dyspnea; Translations: [Shortness of breath]Onset: 10-05-2022 18-42-0112SzclszayXhygi lower respiratory disease (20 sources)H/O: pneumonia; Translations: [Personal history of pneumonia (recurrent)]Onset: 926309-86-1244GwvqnnjmOvvbl lower respiratory disease (20 sources)Hypoxia; Translations: [Hypoxemia]Onset: EpisodicOther nervous system disorders (20 sources)Tremor; Translations: [Tremor, unspecified]Onset: 01-13-2023 23-80-3388CmfnkzgeHzlkm nervous system disorders (20 sources)Finding related to ability to move; Translations: [Other abnormalities of gait and mobility]Onset: 700024-68-4092XjihowbnAkzcx screening for suspected conditions (not mental disorders or infectious disease) (20 sources)D-dimer above reference range; Translations: [Other specified abnormal findings of blood chemistry]Onset: 354644-90-9723SawllzllDanbr upper respiratory infections (1 source)Upper respiratory infection; Translations: [Acute upper respiratory infection, unspecified]45-27-7847EgadixjgDelsqewgn (except that caused by tuberculosis or sexually transmitted disease) (20 sources)Community acquired pneumonia; Translations: [Unspecified bacterial pneumonia]Onset: 09-28-2022 Resolved: 684116-30-1963OilnhxbjZoluaqbn codes; unclassified (20 sources)Edema of lower extremity; Translations: [Localized edema]Onset: 051337-11-4208GffcpbelTasjfetg codes; unclassified (20 sources)Denture present; Translations: [Presence of dental prosthetic device (complete) (partial)]Onset: 548351-12-6199WtpsbajoVrsnmzxl codes; unclassified (20 sources)Insomnia; Translations: [Insomnia, unspecified]Onset: 04-11-2024 02-10-3301MjykapevPpprfmgh codes; unclassified (20 sources)Altered mental status; Translations: [Altered mental status, unspecified]Onset: 08-23-2024 Resolved: 730154-39-9884FrtfjbfqRsrpuxmi codes; unclassified (1 source)Insomnia, unspecified; Translations: [Insomnia, unspecified]Onset: 28-72-3704YtvalcfyBfsybiiw codes; unclassified (1 source)Other specified health status; Translations: [Other specified health status]Onset: 60-06-2790TolefghsTpikvelx codes; unclassified (1 source)Altered mental status, unspecified; Translations: [Altered mental status, unspecified]Onset: 94-10-0781VsxvupyaTjqztxwigpe failure; insufficiency; arrest (adult) (20 sources)Acute hypoxemic and hypercapnic respiratory failure; Translations: [Acute respiratory failure with hypoxia]Onset: 08-12-2024 Resolved: 718300-13-2927WyebvysrIvassfijrt (except in labor) (20 sources)Sepsis without acute organ dysfunction; Translations: [Sepsis, unspecified organism]Onset: 815249-11-7861FzcfjqfcHaxakdxljqn; intervertebral disc disorders; other back problems (20 sources)Lumbar radiculopathy; Translations: [Radiculopathy, lumbar region] Onset: 597947-58-4581KrseuzgzQbkvtrajldov (20 sources)Onset: 02-09-2024 Resolved: 723708-84-4753Hihxbcoqkhvm (2 sources)AMD (chief complaint)Onset: 01-25-6444Jfcht infection (20 sources)Disease caused by 2019-nCoV; Translations: [COVID-19]Onset: 002843-03-0413Zzkkdlvm Results Test NameValueInterpretationReference RangeFacilityPET CT SKULL TO THIGHon 00-99-5435NIB CT SKULL TO THIGHNormalProMedica Highland Springs Surgical CenterXR FEMUR RT 2+ VIEWSon 04-78-9216ZY FEMUR RT 2+ VIEWSNormalProMedica [facility] GLUCOSEon 55-49-5127Djaphjw [Mass/Vol]133 mg/uHLrgs28-50VfaZcqljx [facility] HospitalComment on above:Performed By: #### BEDG ####[facility] ([facility])[address] [facility] [place] [address] VIRGlucose [Mass/Vol]113 mg/cXNisk94-64 [facility] HospitalComment on above:Performed By: #### BEDG ####[facility] ([facility])[address] [facility] [place] [address] VIRTYPE AND SCREENon 19-14-6184HCS_GXBQJGZmpjrkBzzScpawn [facility] HospitalComment on above:Performed By: #### TSC ####[facility] ([facility])[address] [facility] [place] [address] VIRRH_INTEPNegativeNormalProOur Lady Of Mercy Hospitalca [facility] HospitalComment on above: Performed By: #### TSC ####[facility] ([facility])[address] [facility] [place] [address] YXH78jp 55-73-396768Vptvdemq by: STEFFI RODRIGUEZ on: 08/06/2025 08:27 AM Modules accepted: OrdersNormalUniversity of Cedar Park Regional Medical CenterFollow-Upon 57-20-9494Rccemj-[id number] Cuca Dee 1945 F Date Provider Department Center 07/31/2025 VALE TAMAYO [facility] SURG [place] Family History Problem Relation Age of Onset Diabetes Mother Hypertension Father Coronary artery disease Father Family Status - Relation Status Age at Mother Father Level of Service:94219 [place] OFFICE/OUTPATIENT ESTABLISHED MOD MDM 30 MIN Reason for Visit and Comments: Follow-up [505854] - Shunt check after MRINormalUniversity of Cedar Park Regional Medical CenterBEDATRIUM HEALTH GLUCOSEon 60-23-0384Ojoqvtl [Mass/Vol]92 mg/pBCtppje90-57GhfPrnknb [facility] HospitalComment on above:Performed By: #### BEDG ####[facility] ([facility])[address] [place] [address] VIRCBC WITH AUTO DIFFERENTIAL on 18-83-0737Osko form neutrophils/100 WBC (Bld)1 %NormalProMartins Ferry Hospital on above:Result Comment: This is an appended report. These results have been appended to a previously preliminary verified report.Performed By: #### CBCA ####[facility] ([facility])[address], [place] [address] VIRCELLAVISION DIFFERENTIAL TYPEMANUAL DIFFERENTIALNormal [facility] Medical CenterCompromedica char[facility] on above:Result Comment: This is an appended report. These results have been appended to a previously preliminary verified report.Performed By: #### CBCA ####[facility] ([facility])[address], [place] [address] VIRCELLAVISION ELLIPTOCYTES IN BLOOD BY LIGHT MICROSCOPY1+NormalProSt. John Of God HospitalCompromedica [facility] on above:Result Comment: This is an appended report. These results have been appended to a previously preliminary verified report.Performed By: #### CBCA ####[facility] ([facility])[address], [place] [address] VIR CELLAVISION EOSINOPHILS ABSOLUTE COUNT (10*3/UL) BY MANUAL COUNT0.4 10*3/uL Normal0.0-0.4[facility] on above:Result Comment: This is an appended report. These results have been appended to a previously preliminary verified report.Performed By: #### CBCA ####[facility] ([facility])[address], [place] [address] VIRCELLAVISION EOSINOPHILS PERCENT BY MANUAL COUNT5 %NormalProSt. John Of God HospitalCompromedica [facility] on above:Result Comment: This is an appended report. These results have been appended to a previously preliminary verified report.Performed By: #### CBCA ####[facility] ([facility])[address], [place] [address] VIR CELLAVISION LYMPHOCYTES ABSOLUTE COUNT (10*3/UL) BY MANUAL COUNT1.6 10*3/uL Normal1.0-3.5ProMedica Childers HospitalComment on above:Result Comment: This is an appended report. These results have been appended to a previously preliminary verified report.Performed By: #### CBCA ####[facility] ([facility])[address], [place] [address] VIRCELLAVISION LYMPHOCYTES RELATIVE PERCENT BY MANUAL COUNT18 %NormalProMedica Childers HospitalComment on above:Result Comment: This is an appended report. These results have been appended to a previously preliminary verified report.Performed By: #### CBCA ####[facility] ([facility])[address], [place] [address] VIRCELLAVISION MONOCYTES ABSOLUTE COUNT (10*3/UL) IN BLOOD BY MANUAL COUNT 0.7 10*3/uLNormal0.0-0.9ProOur Lady Of Mercy Hospitalca [place] HospitalComment on above:Result Comment: This is an appended report. These results have been appended to a previously preliminary verified report.Performed By: #### CBCA ####[facility] ([facility])[address], [place] [address] VIR CELLAVISION MONOCYTES RELATIVE PERCENT BY MANUAL COUNT8 %NormalProMedica Childers HospitalComment on above:Result Comment: This is an appended report. These results have been appended to a previously preliminary verified report.Performed By: #### CBCA ####[facility] ([facility])[address], [place] [address] VIRCELLAVISION MYELOCYTE RELATIVE PERCENT BY MANUAL COUNT2 %NormalProMedica Childers HospitalComment on above:Result Comment: This is an appended report. These results have been appended to a previously preliminary verified report.Performed By: #### CBCA ####[facility] ([facility])[address], [place] [address] VIRCELLAVISION NEUTROPHILS ABSOLUTE COUNT BY MANUAL COUNT5.9 10*3/uLNormal1.5-6.6[facility] Comment on above:Result Comment: This is an appended report. These results have been appended to a previously preliminary verified report.Performed By: #### CBCA ####[facility] ([facility])[address], [place] [address] VIRCELLAVISION NEUTROPHILS RELATIVE PERCENT BY MANUAL COUNT 66 %NormalCleveland Clinic Avon HospitalComment on above:Result Comment: This is an appended report. These results have been appended to a previously preliminary verified report.Performed By: #### CBCA ####[facility] ([facility])[address], [place] [address] VIRCELLAVISION POLYCHROMASIA IN BLOOD BY LIGHT MICROSCOPY1+NormalCleveland Clinic Avon HospitalComment on above: Result Comment: This is an appended report. These results have been appended to a previously preliminary verified report.Performed By: #### CBCA ####[facility] ([facility])[address], [place] [address] VIR Erythrocyte distribution width (RBC) [Ratio]17.1 %High11.5-15ProSt. John Of God HospitalComment on above:Performed By: #### CBCA ####[facility] ([facility])[address], [place] [address] VIRHematocrit (Bld) [Volume fraction]25.0 %Wti93-45IwxGqnedt [place] HospitalComment on above: Performed By: #### CBCA ####[facility] ([facility])[address], [place] [address] VIRHemoglobin (Bld) [Mass/Vol]8.4 g/dLLow 11.7-15.5Pro[facility]ica [facility] HospitalComment on above:Performed By: #### CBCA ####[facility] ([facility])[address], [place] [address] VIRMCH (RBC) [Entitic mass]28.3 xvOfhjsr51-99IvlZlqmauCleveland Clinic [facility] Hospital Comment on above:Performed By: #### CBCA ####[facility] ([facility])[address], [place] [address] VIRMCHC (RBC) [Mass/Vol]33.8 g/dL Iagytq83-23MqgHkjthbCleveland Clinic Avon HospitalComment on above:Performed By: #### CBCA ####[facility] ([facility])[address], [place] [address] VIRMCV (RBC) [Entitic vol]84 yWShjlfb99-863AjdGkcnxbCleveland Clinic [facility] Hospital Comment on above:Performed By: #### CBCA ####[facility] ([facility])[address], [place] [address] VIRPlatelet mean volume (Bld) [Entitic vol]7.9 fLNormal7-12PClinton Memorial Hospital HospitalComment on above:Performed By: #### CBCA ####[facility] ([facility])[address], [place] [address] VIRPlatelets (Bld) [#/Vol]221 10*3/nUZwjtam819-599KpkEpxmhc [place] HospitalComment on above:Performed By: #### CBCA ####[facility] ([facility])[address], [place] [address] VIRRBC COUNT2.97 X10E12/LLow3.8-5.2PClinton Memorial Hospital HospitalComment on above:Performed By: #### CBCA ####[facility] ([facility])[address], [place] [address] VIRWBC (Bld) [#/Vol]8.8 10*3/uLNormal4-11ProDayton Children'S Hospital HospitalComment on above:Performed By: #### CBCA ####[facility] ([facility])[address], [place] [address] VIRCOMPREHENSIVE METABOLIC PANELon 33-04-3633Bgxvihq [Mass/Vol]2.8 g/dLLow3.2-5.3ProMedTriHealth McCull[facility] HospitalComment on above:Performed By: #### CMP ####[facility] ([facility])[address] [address] VIRALP [Catalytic activity/Vol]111 U/LRqmcgm20-969YjoRmaobl [facility] HospitalComment on above: Performed By: #### CMP ####[facility] ([facility])[address] [address] VIRALT [Catalytic activity/Vol]U/LNormal<=31 [facility] HospitalComment on above:Performed By: #### CMP ####[facility] ([facility])[address] [address] VIR Anion gap [Moles/Vol]5 mmol/LNormal5-15ProOur Lady Of Mercy Hospitalca [place] HospitalComment on above:Performed By: #### CMP ####[facility] ([facility])[address] [address] VIRAST [Catalytic activity/Vol]21 U/LNormal <=41ProMedica Childers HospitalComment on above:Performed By: #### CMP ####[facility] ([facility])[address] [address] VIR Bilirubin [Mass/Vol]0.5 mg/dLNormal0.3-1.2ProMedTriHealth McCull[facility] HospitalComment on above:Performed By: #### CMP ####[facility] ([facility])[address] [address] VIRCalcium [Mass/Vol]9.3 mg/dLNormal8.5-10.5 ProMvaughan regional medical centera [place] HospitalComment on above:Performed By: #### CMP ####[facility] ([facility])[address] [address] VIR Chloride [Moles/Vol]108 mmol/NXnaxfe26-413GskZxexht [facility] HospitalComment on above:Performed By: #### CMP ####[facility] ([facility])[address] [facility] [address] [address] VIRCO2 [Moles/Vol]27 mmol/LUrsqvb69-51 ProMTriHealth McCullough-Hyde Memorial Hospital HospitalComment on above:Performed By: #### CMP ####[facility] ([facility])[address] [address] VIR Creatinine [Mass/Vol]1.18 mg/dLHigh0.40-1.00ProDay[facility] HospitalComment on above:Result Comment: METHOD TRACEABLE TO IDMS STANDARDPerformed By: #### CMP ####[facility] ([facility])[address] [address] VIRGFR/1.73 sq M.predicted among non-blacks MDRD (S/P/Bld) [Vol rate/Area] 47 mL/min/{1.73_m2}Low>=60Pro[facility] HospitalComment on above:Result Comment: Reported eGFR is based on theCKD-EPI 2020 equation that doesnot use a race coefficient.Performed By: #### CMP ####[facility] ([facility])[address] [address] VIRGlucose [Mass/Vol]81 mg/dLNormal 65-99Pro[facility] HospitalComment on above:Performed By: #### CMP ####[facility] ([facility])[address] [address] VIR Potassium [Moles/Vol]4.7 mmol/LNormal3.5-5.0Pro[facility] HospitalComment on above:Performed By: #### CMP ####[facility] ([facility])[address] [address] VIRProtein [Mass/Vol]5.8 g/dLLow6.0-8.0 [facility] HospitalComment on above:Performed By: #### CMP ####[facility] ([facility])[address] [facility] [address] [address] VIR Sodium [Moles/Vol]140 mmol/IHsqofy048-972VnoJcrzzm Childers HospitalComment on above:Performed By: #### CMP ####[facility] ([facility])[address] [facility] [address]TO[facility] [address] VIRUrea nitrogen [Mass/Vol]23 mg/dLNormal5-27 [facility] HospitalComment on above:Performed By: #### CMP ####[facility] ([facility])[address] [facility] [address] [address] VIR MAGNESIUMon 18-73-7280Bnfkpokwm [Mass/Vol]1.8 mg/dLNormal1.8-2.6[facility] HospitalComment on above:Performed By: #### MG ####[facility] ([facility])[address] [place] [address] VIRBEDSIDE GLUCOSEon 63-80-8787Areoeif [Mass/Vol]189 mg/fMLxxf97-98OqjCrjmgn [facility] HospitalComment on above:Performed By: #### BEDG ####[facility] ([facility])[address] [place] [address] VIRGlucose [Mass/Vol]239 mg/cTNshn81-14HxpQrqjfs [facility] HospitalComment on above:Performed By: #### BEDG ####[facility] ([facility])[address] [place] [address] VIRGlucose [Mass/Vol]240 mg/pCNueg60-62DfcOnabvo [facility] HospitalComment on above:Performed By: #### BEDG ####[facility] ([facility])[address] [place] [address] VIR Glucose [Mass/Vol]175 mg/zKHdkf51-71JncXjlxsi [facility] HospitalComment on above: Performed By: #### BEDG ####[facility] ([facility])[address] [place] [address] VIRGlucose [Mass/Vol]135 mg/wVKnqi91-93ChjAnyzer [place] HospitalComment on above:Performed By: #### BEDG ####[facility] ([facility])[address] [place] [address] VIRCBC WITH AUTO DIFFERENTIALon 98-50-5629WXTIDASOW ABSOLUTE COUNT (10*3/UL) BY AUTOMATED COUNT0.0 10*3/uLNormal 0.0-0.2[facility] [place] HospitalComment on above:Performed By: #### CBCA ####[facility] ([facility])[address] [address] VIRBASOPHILS RELATIVE PERCENT BY AUTOMATED COUNT0.4 %NormalProDayton Children'S Hospital HospitalComment on above:Performed By: #### CBCA ####[facility] ([facility])[address] [address] VIRCELLAVISION DIFFERENTIAL TYPEAUTOMATED DIFFERENTIALNormalProSt. John Of God HospitalComment on above:Performed By: #### CBCA ####[facility] ([facility])[address] [address] VIREosinophils (Bld) [#/Vol]0.4 10*3/uL Normal0.0-0.4Pro[facility] HospitalComment on above:Performed By: #### CBCA ####[facility] ([facility])[address] [address] VIREOSINOPHILS RELATIVE PERCENT BY AUTOMATED COUNT5.4 %NormalProDayton Children'S Hospital HospitalComment on above:Performed By: #### CBCA ####[facility] ([facility])[address] [place] [address] VIRErythrocyte distribution width (RBC) [Ratio]17.9 %High11.5-15[facility] on above:Performed By: #### CBCA ####[facility] ([facility])[address], [place] [address] VIRHematocrit (Bld) [Volume fraction]20.9 %Hoz75-61LwfBeeeqz [place] HospitalComment on above:Performed By: #### CBCA ####[facility] ([facility])[address], [place] [address] VIRHemoglobin (Bld) [Mass/Vol]6.8 g/dLCritically low 11.7-15.5ProMedTriHealth [facility] HospitalComment on above:Performed By: #### CBCA ####[facility] ([facility])[address], [place] [address] VIRLYMPHOCYTES ABSOLUTE COUNT (10*3/UL) BY AUTOMATED COUNT1.6 10*3/uL Normal1.0-3.5PCl[facility] HospitalComment on above:Performed By: #### CBCA ####[facility] ([facility])[address], [place] [address] VIRLYMPHOCYTES RELATIVE PERCENT BY AUTOMATED COUNT22.4 %NormalProDayton Children'S Hospital HospitalComment on above:Performed By: #### CBCA ####[facility] ([facility])[address], [place] [address] VIRMCH (RBC) [Entitic mass]27.7 rpOguuso31-03CogUttaqa [place] HospitalComment on above: Performed By: #### CBCA ####[facility] ([facility])[address], [place] [address] VIRMCHC (RBC) [Mass/Vol]32.7 g/oJYldbdy23-15 [facility] [place] HospitalComment on above:Performed By: #### CBCA ####[facility] ([facility])[address], [place] [address] VIR MCV (RBC) [Entitic vol]85 eNDwehhg83-509QmcIjbnvd [place] HospitalComment on above:Performed By: #### CBCA ####[facility] ([facility])[address], [place] [address] VIRMONOCYTES ABSOLUTE COUNT (10*3/UL) BY AUTOMATED COUNT0.7 10*3/uLNormal0.0-0.9[facility] [place] HospitalComment on above:Performed By: #### CBCA ####[facility] ([facility])[address], [place] [address] VIRMONOCYTES RELATIVE PERCENT BY AUTOMATED COUNT10.1 %NormalProMedica [place] HospitalComment on above:Performed By: #### CBCA ####[facility] ([facility])[address], [place] [address] VIRNEUTROPHILS ABSOLUTE COUNT BY AUTOMATED COUNT4.5 10*3/uL Normal1.5-6.6ProOur Lady Of Mercy Hospitalca [place] HospitalComment on above:Performed By: #### CBCA ####[facility] ([facility])[address], [place] [address] VIRNEUTROPHILS RELATIVE PERCENT BY AUTOMATED COUNT61.7 %NormalProOur Lady Of Mercy Hospitalca [place] HospitalComment on above:Performed By: #### CBCA ####[facility] ([facility])[address], [place] [address] VIRPlatelet mean volume (Bld) [Entitic vol]8.4 fLNormal7-12[facility] [place] HospitalComment on above:Performed By: #### CBCA ####[facility] ([facility])[address], [place] [address] VIRPlatelets (Bld) [#/Vol]187 10*3/uLNormal 150-450[facility] HospitalComment on above:Performed By: #### CBCA ####[facility] ([facility])[address], [place] [address] VIRRBC COUNT2.47 X10E12/LLow3.8-5.2[facility] [place] HospitalComment on above:Performed By: #### CBCA ####[facility] ([facility])[address], [place] [address] VIRWBC (Bld) [#/Vol]7.3 10*3/uLNormal4-11 [facility]MTri[facility] HospitalComment on above:Performed By: #### CBCA ####[facility] ([facility])[address], [place] [address] VIR COMPREHENSIVE METABOLIC PANELon 18-01-3644Jgdlwnr [Mass/Vol]2.8 g/dLLow3.2-5.3 [facility] HospitalComment on above:Performed By: #### CMP ####[facility] ([facility])[address] [address] VIRALP [Catalytic activity/Vol]109 U/XOjwnbp55-901PuqLpardm [place] HospitalComment on above:Performed By: #### CMP ####[facility] ([facility])[address] [address] VIRALT [Catalytic activity/Vol]U/LNormal<=31 [facility]MTri[facility] HospitalComment on above:Performed By: #### CMP ####[facility] ([facility])[address] [address] VIR Anion gap [Moles/Vol]6 mmol/LNormal5-15ProOur Lady Of Mercy Hospitalca [place] HospitalComment on above:Performed By: #### CMP ####[facility] ([facility])[address] [address] VIRAST [Catalytic activity/Vol]15 U/LNormal <=41[facility] HospitalComment on above:Performed By: #### CMP ####[facility] ([facility])[address] [address] VIR Bilirubin [Mass/Vol]0.4 mg/dLNormal0.3-1.2PCl[facility] HospitalComment on above:Performed By: #### CMP ####[facility] ([facility])[address] [address] VIRCalcium [Mass/Vol]8.8 mg/dLNormal8.5-10.5 [facility] HospitalComment on above:Performed By: #### CMP ####[facility] ([facility])[address] [address] VIR Chloride [Moles/Vol]109 mmol/SOjywmf81-521AkzVqiwfm [place] HospitalComment on above:Performed By: #### CMP ####[facility] ([facility])[address] [facility] [address] [address] VIRCO2 [Moles/Vol]25 mmol/UXkrmqc93-89 [facility] HospitalComment on above:Performed By: #### CMP ####[facility] ([facility])[address] [address] VIR Creatinine [Mass/Vol]1.26 mg/dLHigh0.40-1.00[facility] HospitalComment on above:Result Comment: METHOD TRACEABLE TO IDMS STANDARDPerformed By: #### CMP ####[facility] ([facility])[address] [facility] [address] [address] VIRGFR/1.73 sq M.predicted among non-blacks MDRD (S/P/Bld) [Vol rate/Area] 43 mL/min/{1.73_m2}Low>=60[facility] HospitalComment on above:Result Comment: Reported eGFR is based on theCKD-EPI 2020 equation that doesnot use a race coefficient.Performed By: #### CMP ####[facility] ([facility])[address] [facility] [address] [address] VIRGlucose [Mass/Vol]176 mg/dLHigh 65-99[facility] HospitalComment on above:Performed By: #### CMP ####[facility] ([facility])[address] [address] VIR Potassium [Moles/Vol]4.1 mmol/LNormal3.5-5.0[facility] HospitalComment on above:Performed By: #### CMP ####[facility] ([facility])[address] [address] VIRProtein [Mass/Vol]5.5 g/dLLow6.0-8.0 [facility] HospitalComment on above:Performed By: #### CMP ####[facility] ([facility])[address] [address] VIR Sodium [Moles/Vol]140 mmol/STpzkui788-456XyrDepghn [place] HospitalComment on above:Performed By: #### CMP ####[facility] ([facility])[address] [address] VIRUrea nitrogen [Mass/Vol]27 mg/dLNormal5-27 [facility] HospitalComment on above:Performed By: #### CMP ####[facility] ([facility])[address] [address] VIR HEMOGLOBIN AND HEMATOCRIT, BLOODon 13-15-4872Fducziqygb (Bld) [Volume fraction] 24.9 %Kqz24-35HcgLvbzpu [place] HospitalComment on above:Performed By: #### HH ####[facility] ([facility])[address], [place] [address] VIRHemoglobin (Bld) [Mass/Vol]8.2 g/dLLow11.7-15.5PClinton [facility] HospitalComment on above:Performed By: #### HH ####[facility] ([facility])[address], [place] [address] VIRMAGNESIUMon 36-32-0647Qkeivzlna [Mass/Vol]1.9 mg/dLNormal1.8-2.6[facility] Hospital Comment on above:Performed By: #### MG ####[facility] ([facility])[address], [place] [address] VIRTYPE AND SCREENon 07-17-2025 ABO_INTEPONormalProOur Lady Of Mercy Hospitalca [place] HospitalComment on above:Performed By: #### TSC ####[facility] ([facility])[address] [place] [address] VIR RH_INTEPNegativeNormalProOur Lady Of Mercy Hospitalca [place] HospitalComment on above:Performed By: #### TSC ####[facility] ([facility])[address] [place] [address] VIRBEDSIDE GLUCOSEon 21-80-7862Ipkufqj [Mass/Vol]186 mg/tYUqev84-04FmoYxrscz [place] HospitalComment on above:Performed By: #### BEDG ####[facility] ([facility])[address] [place] [address] VIRGlucose [Mass/Vol]199 mg/bPDgqc05-12ZcfVoklxj [place] HospitalComment on above:Performed By: #### BEDG ####[facility] ([facility])[address] [facility] [place] [address] VIR Glucose [Mass/Vol]113 mg/lJOwch02-83ReiVfclwp [place] HospitalComment on above: Performed By: #### BEDG ####[facility] ([facility])[address] [place] [address] VIRGlucose [Mass/Vol]72 mg/mHPvdyjz33-30TskBxmpyr [place] HospitalComment on above:Performed By: #### BEDG ####[facility] ([facility])[address] [place] [address] VIRCBC WITH AUTO DIFFERENTIALon 29-93-7996Pafe form neutrophils/100 WBC (Bld)3 %NormalCleveland Clinic Avon Hospital Comment on above:Result Comment: This is an appended report. These results have been appended to a previously preliminary verified report.Performed By: #### CBCA ####[facility] ([facility])[address], [place] [address] VIRCELLAVISION BASOPHILS ABSOLUTE COUNT (10*3/UL) BY MANUAL COUNT0.1 10*3/uLNormal0.0-0.2[facility] [place] HospitalComment on above:Result Comment: This is an appended report. These results have been appended to a previously preliminary verified report.Performed By: #### CBCA ####[facility] ([facility])[address], [place] [address] VIR CELLAVISION BASOPHILS RELATIVE PERCENT BY MANUAL COUNT1 %NormalProMedica [place] HospitalComment on above:Result Comment: This is an appended report. These results have been appended to a previously preliminary verified report.Performed By: #### CBCA ####[facility] ([facility])[address], [place] [address] VIRCELLAVISION DIFFERENTIAL TYPEMANUAL DIFFERENTIALNormal [facility] [place] HospitalComment on above:Result Comment: This is an appended report. These results have been appended to a previously preliminary verified report.Performed By: #### CBCA ####[facility] ([facility])[address], [place] [address] VIRCELLAVISION EOSINOPHILS ABSOLUTE COUNT (10*3/UL) BY MANUAL COUNT0.5 10*3/uLHigh0.0-0.4[facility] [place] HospitalComment on above:Result Comment: This is an appended report. These results have been appended to a previously preliminary verified report.Performed By: #### CBCA ####[facility] ([facility])[address], [place] [address] VIRCELLAVISION EOSINOPHILS PERCENT BY MANUAL COUNT5 %NormalProMedica [place] HospitalComment on above:Result Comment: This is an appended report. These results have been appended to a previously preliminary verified report. Performed By: #### CBCA ####[facility] ([facility])[address], [place] [address] VIRCELLAVISION LYMPHOCYTES ABSOLUTE COUNT (10*3/UL) BY MANUAL COUNT1.5 10*3/uLNormal1.0-3.5PProtestant Hospital Comment on above:Result Comment: This is an appended report. These results have been appended to a previously preliminary verified report.Performed By: #### CBCA ####[facility] ([facility])[address], [place] [address] VIRCELLAVISION LYMPHOCYTES RELATIVE PERCENT BY MANUAL COUNT 17 %NormalProSt. John Of God HospitalComment on above:Result Comment: This is an appended report. These results have been appended to a previously preliminary verified report.Performed By: #### CBCA ####[facility] ([facility])[address], [place] [address] VIRCELLAVISION MONOCYTES ABSOLUTE COUNT (10*3/UL) IN BLOOD BY MANUAL COUNT0.7 10*3/uLNormal0.0-0.9ProSt. John Of God HospitalComment on above:Result Comment: This is an appended report. These results have been appended to a previously preliminary verified report.Performed By: #### CBCA ####[facility] ([facility])[address], [place] [address] VIRCELLAVISION MONOCYTES RELATIVE PERCENT BY MANUAL COUNT8 %NormalCleveland Clinic Avon HospitalComment on above:Result Comment: This is an appended report. These results have been appended to a previously preliminary verified report.Performed By: #### CBCA ####[facility] ([facility])[address], [place] [address] VIRCELLAVISION MYELOCYTE RELATIVE PERCENT BY MANUAL COUNT1 %NormalProSt. John Of God HospitalCompromedica [facility] on above:Result Comment: This is an appended report. These results have been appended to a previously preliminary verified report.Performed By: #### CBCA ####[facility] ([facility])[address], [place] [address] VIR CELLAVISION NEUTROPHILS ABSOLUTE COUNT BY MANUAL COUNT6.2 10*3/uLNormal1.5-6.6 [facility] HospitalComment on above:Result Comment: This is an appended report. These results have been appended to a previously preliminary verified report.Performed By: #### CBCA ####[facility] ([facility])[address], [place] [address] VIRCELLAVISION NEUTROPHILS RELATIVE PERCENT BY MANUAL COUNT67 %NormalProSt. John Of God HospitalCompromedica [facility] on above:Result Comment: This is an appended report. These results have been appended to a previously preliminary verified report.Performed By: #### CBCA ####[facility] ([facility])[address], [place] [address] VIR CELLAVISION NUCLEATED RED BLOOD CELLS IN BLOOD BY LIGHT XONDLMAEQN4Litmyl [facility] HospitalCompromedica [facility] on above:Result Comment: This is an appended report. These results have been appended to a previously preliminary verified report.Performed By: #### CBCA ####[facility] ([facility])[address], [place] [address] VIRCELLAVISION RBC MORPHOLOGYNormalNormal [facility] HospitalCompromedica [facility] on above:Result Comment: This is an appended report. These results have been appended to a previously preliminary verified report.Performed By: #### CBCA ####[facility] ([facility])[address], [place] [address] VIRErythrocyte distribution width (RBC) [Ratio]17.5 %High11.5-15ProDay[facility]'S Hospital HospitalComment on above:Performed By: #### CBCA ####[facility] ([facility])[address], [place] [address] VIRHematocrit (Bld) [Volume fraction]22.9 %[id number] [place] HospitalComment on above:Performed By: #### CBCA ####[facility] ([facility])[address], [place] [address] VIRHemoglobin (Bld) [Mass/Vol]7.6 g/dLLow11.7-15.5P[facility] HospitalComment on above: Performed By: #### CBCA ####[facility] ([facility])[address], [place] [address] VIRMCH (RBC) [Entitic mass]27.8 olWuulql50-62 [facility]MTri[facility] HospitalComment on above:Performed By: #### CBCA ####[facility] ([facility])[address], [place] [address] VIR MCHC (RBC) [Mass/Vol]33.0 g/aJGqoxfu09-75JwgEhjhrb [place] HospitalComment on above:Performed By: #### CBCA ####[facility] ([facility])[address] [facility] [address], [place] [address] VIRMCV (RBC) [Entitic vol]84 eWIywwkl96-043 [facility] HospitalComment on above:Performed By: #### CBCA ####[facility] ([facility])[address], [place] [address] VIR Platelet mean volume (Bld) [Entitic vol]8.3 fLNormal7-12PCl[facility] HospitalComment on above:Performed By: #### CBCA ####[facility] ([facility])[address] [facility] [address], [place] [address] VIRPlatelets (Bld) [#/Vol]181 10*3/uWKpfefi280-694MgpEwpvon [place] HospitalComment on above: Performed By: #### CBCA ####[facility] ([facility])[address] [facility], [place] [address] VIRRBC COUNT2.72 X10E12/LLow3.8-5.2PCl[facility] HospitalComment on above:Performed By: #### CBCA ####[facility] ([facility])[address], [place] [address] VIRWBC (Bld) [#/Vol]9.0 10*3/uLNormal4-11Pro[facility] Childers HospitalComment on above:Performed By: #### CBCA ####[facility] ([facility])[address], [place] [address] VIRCOMPREHENSIVE METABOLIC PANELon 39-80-3391Ctuboyx [Mass/Vol]3.1 g/dLLow3.2-5.3Pro[facility] [place] HospitalComment on above:Performed By: #### CMP ####[facility] ([facility])[address] [address] VIRALP [Catalytic activity/Vol]111 U/YJmrpvf10-299LkhJgnzte Childers HospitalComment on above:Performed By: #### CMP ####[facility] ([facility])[address] [address] VIRALT [Catalytic activity/Vol]U/LNormal<=31ProMedTri[facility] HospitalComment on above:Performed By: #### CMP ####[facility] ([facility])[address] [address] VIRAnion gap [Moles/Vol]7 mmol/LNormal5-15ProOur Lady Of Mercy Hospitalca [place] HospitalComment on above:Performed By: #### CMP ####[facility] ([facility])[address] [address] VIRAST [Catalytic activity/Vol]18 U/LNormal<=41Pro[facility] Childers HospitalComment on above:Performed By: #### CMP ####[facility] ([facility])[address] [address] VIRBilirubin [Mass/Vol]0.4 mg/dLNormal0.3-1.2ProMedTriHealth [facility] HospitalComment on above:Performed By: #### CMP ####[facility] ([facility])[address] [address] VIRCalcium [Mass/Vol]8.9 mg/dLNormal8.5-10.5PCl[facility] HospitalComment on above:Performed By: #### CMP ####[facility] ([facility])[address] [address] VIRChloride [Moles/Vol]107 mmol/HNkbztk46-064KbvGghfmx [place] HospitalComment on above:Performed By: #### CMP ####[facility] ([facility])[address] [address] VIRCO2 [Moles/Vol]26 mmol/RJimysr54-40GqlKeheryProtestant HospitalComment on above:Performed By: #### CMP ####[facility] ([facility])[address], [place] [address] VIRCreatinine [Mass/Vol]1.51 mg/dLHigh0.40-1.00ProSt. John Of God HospitalComment on above:Result Comment: METHOD TRACEABLE TO IDMS STANDARD Performed By: #### CMP ####[facility] ([facility])[address] [address] VIRGFR/1.73 sq M.predicted among non-blacks MDRD (S/P/Bld) [Vol rate/Area]35 mL/min/{1.73_m2}Low>=60ProSt. [facility] Of God Hospital Comment on above:Result Comment: Reported eGFR is based on theCKD-EPI 2020 equation that doesnot use a race coefficient.Performed By: #### CMP ####[facility] ([facility])[address] [address] VIR Glucose [Mass/Vol]82 mg/tPSgqyzi04-31KaqCkhdnj [place] HospitalComment on above: Performed By: #### CMP ####[facility] ([facility])[address] [address] VIRPotassium [Moles/Vol]4.7 mmol/LNormal3.5-5.0 [facility] [place] HospitalComment on above:Performed By: #### CMP ####[facility] ([facility])[address] [facility] [address] [address] VIR Protein [Mass/Vol]6.1 g/dLNormal6.0-8.0ProOur Lady Of Mercy Hospitalca [place] HospitalComment on above:Performed By: #### CMP ####[facility] ([facility])[address] [facility] [address] [address] VIRSodium [Moles/Vol]140 mmol/RAfxngt038-715 [facility]MTri[facility] HospitalComment on above:Performed By: #### CMP ####[facility] ([facility])[address] [facility] [address] [address] VIR Urea nitrogen [Mass/Vol]31 mg/dLHigh5-27ProOur Lady Of Mercy Hospitalca [place] HospitalComment on above:Performed By: #### CMP ####[facility] ([facility])[address] [place] [address] VIRLACTATE W/ REFLEXon 64-61-7658ZLCSZYN W/REFLEX1.0 mmol/LNormal0.4-2.0ProDayton [facility]'S [facility] HospitalComment on above:Order Comment: Result did not trigger repeat Lactate,re-order if needed.Performed By: #### LACTS ####[facility] ([facility])[address] [facility] [address], [place] [address] VIRMAGNESIUMon 31-49-2633Zfjyjdgkj [Mass/Vol]2.0 mg/dLNormal 1.8-2.6ProOur Lady Of Mercy Hospitalca [place] HospitalComment on above:Performed By: #### MG ####[facility] ([facility])[address] [facility] [address], [place] [address] VIRBEDSIDE GLUCOSEon 15-02-9579Zxumbff [Mass/Vol]223 mg/wNDfhu64-49 [facility]MTri[facility] HospitalComment on above:Performed By: #### BEDG ####[facility] ([facility])[address] [place] [facility] [place] [address] VIRGlucose [Mass/Vol]246 mg/pGZcgo14-90AgdMuxszc [place] HospitalComment on above:Performed By: #### BEDG ####[facility] ([facility])[address] [place] [facility] [place] [address] VIRGlucose [Mass/Vol]198 mg/bLXxls13-50TecNviawf [place] HospitalComment on above:Performed By: #### BEDG ####[facility] ([facility])[address] [place] [place] [address] VIRGlucose [Mass/Vol]135 mg/jZSmxa95-30LzkShtenl [place] HospitalComment on above:Performed By: #### BEDG ####[facility] ([facility])[address] [place] [place] [address] VIRCBC WITH AUTO DIFFERENTIALon 90-87-8793PBEOPSNLZ ABSOLUTE COUNT (10*3/UL) BY AUTOMATED COUNT0.0 10*3/uLNormal 0.0-0.2Pro[facility] [place] HospitalComment on above:Performed By: #### CBCA ####[facility] ([facility])[address] [facility] [address], [place] [address] VIRBASOPHILS RELATIVE PERCENT BY AUTOMATED COUNT0.3 %NormalProDayton Children'S Hospital HospitalComment on above:Performed By: #### CBCA ####[facility] ([facility])[address] [facility] [address], [place] [address] VIRCELLAVISION DIFFERENTIAL TYPEAUTOMATED DIFFERENTIALNormalProOur Lady Of Mercy Hospitalca [place] HospitalComment on above:Performed By: #### CBCA ####[facility] ([facility])[address] [facility] [address], [place] [address] VIREosinophils (Bld) [#/Vol]0.2 10*3/uL Normal0.0-0.4Pro[facility] [place] HospitalComment on above:Performed By: #### CBCA ####[facility] ([facility])[address], [place] [address] VIREOSINOPHILS RELATIVE PERCENT BY AUTOMATED COUNT2.0 %NormalProDayton Children'S Hospital HospitalComment on above:Performed By: #### CBCA ####[facility] ([facility])[address], [place] [address] VIRErythrocyte distribution width (RBC) [Ratio]17.4 %High11.5-15ProDay[facility]S Hospital Hospital Comment on above:Performed By: #### CBCA ####[facility] ([facility])[address], [place] [address] VIRHematocrit (Bld) [Volume fraction]22.1 %Acd63-84QcsUmrgwm [place] HospitalComment on above:Performed By: #### CBCA ####[facility] ([facility])[address], [place] [address] VIRHemoglobin (Bld) [Mass/Vol]7.3 g/dLLow11.7-15.5PCl[facility] HospitalComment on above:Performed By: #### CBCA ####[facility] ([facility])[address], [place] [address] VIRLYMPHOCYTES ABSOLUTE COUNT (10*3/UL) BY AUTOMATED COUNT1.6 10*3/uLNormal1.0-3.5PCl[facility] HospitalComment on above:Performed By: #### CBCA ####[facility] ([facility])[address], [place] [address] VIRLYMPHOCYTES RELATIVE PERCENT BY AUTOMATED COUNT20.5 %NormalProDayton Children'S Hospital HospitalComment on above:Performed By: #### CBCA ####[facility] ([facility])[address], [place] [address] VIRMCH (RBC) [Entitic mass]27.6 pg Xhqede56-44RofZvmbgq [place] HospitalComment on above:Performed By: #### CBCA ####[facility] ([facility])[address], [place] [address] VIRMCHC (RBC) [Mass/Vol]32.9 g/zXLrpvmc54-52UrpAdhzzq [place] [facility] on above:Performed By: #### CBCA ####[facility] ([facility])[address], [place] [address] VIRMCV (RBC) [Entitic vol]84 fL Zgenxo69-813EriUtetdq [place] HospitalComment on above:Performed By: #### CBCA ####[facility] ([facility])[address], [place] [address] VIRMONOCYTES ABSOLUTE COUNT (10*3/UL) BY AUTOMATED COUNT0.9 10*3/uLNormal 0.0-0.9Pro[facility] HospitalComment on above:Performed By: #### CBCA ####[facility] ([facility])[address], [place] [address] VIRMONOCYTES RELATIVE PERCENT BY AUTOMATED COUNT11.1 %NormalProDayton Children'S Hospital HospitalComment on above:Performed By: #### CBCA ####[facility] ([facility])[address], [place] [address] VIRNEUTROPHILS ABSOLUTE COUNT BY AUTOMATED COUNT5.2 10*3/uLNormal1.5-6.6Pro[facility] HospitalComment on above:Performed By: #### CBCA ####[facility] ([facility])[address], [place] [address] VIRNEUTROPHILS RELATIVE PERCENT BY AUTOMATED COUNT66.1 %NormalProDayton Children'S Hospital HospitalComment on above: Performed By: #### CBCA ####[facility] ([facility])[address], [place] [address] VIRPlatelet mean volume (Bld) [Entitic vol]8.1 fLNormal7-12[facility] [place] HospitalComment on above:Performed By: #### CBCA ####[facility] ([facility])[address], [place] [address] VIRPlatelets (Bld) [#/Vol]168 10*3/jHDfcotk615-344KkqVouqgf [facility] HospitalComment on above:Performed By: #### CBCA ####[facility] ([facility])[address], [place] [address] VIRRBC COUNT2.63 X10E12/LLow3.8-5.2ProMedTriHealth [facility] HospitalComment on above:Performed By: #### CBCA ####[facility] ([facility])[address], [place] [address] VIRWBC (Bld) [#/Vol]7.8 10*3/uLNormal4-11Pro[facility] Childers HospitalComment on above:Performed By: #### CBCA ####[facility] ([facility])[address], [place] [address] VIRCOMPREHENSIVE METABOLIC PANELon 03-94-8488Tzpqnkb [Mass/Vol]3.0 g/dLLow3.2-5.3ProMedTriHealth [facility] HospitalComment on above:Performed By: #### CMP ####[facility] ([facility])[address] [address] VIRALP [Catalytic activity/Vol]104 U/UIbikxw82-683KriOkxxwd [facility] HospitalComment on above: Performed By: #### CMP ####[facility] ([facility])[address] [address] VIRALT [Catalytic activity/Vol]U/LNormal<=31 [facility] HospitalComment on above:Performed By: #### CMP ####[facility] ([facility])[address] [address] VIR Anion gap [Moles/Vol]6 mmol/LNormal5-15[facility] HospitalComment on above:Performed By: #### CMP ####[facility] ([facility])[address] [address] VIRAST [Catalytic activity/Vol]18 U/LNormal <=41ProOur Lady Of Mercy Hospitalca [place] HospitalComment on above:Performed By: #### CMP ####[facility] ([facility])[address] [address] VIR Bilirubin [Mass/Vol]0.3 mg/dLNormal0.3-1.2[facility] [place] HospitalComment on above:Performed By: #### CMP ####[facility] ([facility])[address] [address] VIRCalcium [Mass/Vol]8.3 mg/dLLow8.5-10.5 [facility] [place] HospitalComment on above:Performed By: #### CMP ####[facility] ([facility])[address] [address] VIR Chloride [Moles/Vol]105 mmol/FDonyqx61-546GjgOjcyyz [place] HospitalComment on above:Performed By: #### CMP ####[facility] ([facility])[address] [address] VIRCO2 [Moles/Vol]28 mmol/FDxrmkd34-80 ProMTriHealth [facility] HospitalComment on above:Performed By: #### CMP ####[facility] ([facility])[address] [address] VIR Creatinine [Mass/Vol]1.91 mg/dLHigh0.40-1.00ProOur Lady Of Mercy Hospitalca [place] HospitalComment on above:Result Comment: METHOD TRACEABLE TO IDMS STANDARDPerformed By: #### CMP ####[facility] ([facility])[address] [address] VIRGFR/1.73 sq M.predicted among non-blacks MDRD (S/P/Bld) [Vol rate/Area] 26 mL/min/{1.73_m2}Low>=60ProMedica Childers HospitalComment on above:Result Comment: Reported eGFR is based on theCKD-EPI 2020 equation that doesnot use a race coefficient.Performed By: #### CMP ####[facility] ([facility])[address] [address] VIRGlucose [Mass/Vol]134 mg/dLHigh 65-99Pro[facility] [place] HospitalComment on above:Performed By: #### CMP ####[facility] ([facility])[address] [address] VIR Potassium [Moles/Vol]4.4 mmol/LNormal3.5-5.0ProOur Lady Of Mercy Hospitalca [place] HospitalComment on above:Performed By: #### CMP ####[facility] ([facility])[address] [address] VIRProtein [Mass/Vol]5.8 g/dLLow6.0-8.0 [facility] [place] HospitalComment on above:Performed By: #### CMP ####[facility] ([facility])[address] [address] VIR Sodium [Moles/Vol]139 mmol/IIzjhjd629-284TgxDudhnm [place] HospitalComment on above:Performed By: #### CMP ####[facility] ([facility])[address] [address] VIRUrea nitrogen [Mass/Vol]35 mg/dLHigh5-27 [facility] [place] HospitalComment on above:Performed By: #### CMP ####[facility] ([facility])[address] [address] VIR MAGNESIUMon 96-99-8786Vqncpghzf [Mass/Vol]2.0 mg/dLNormal1.8-2.6ProOur Lady Of Mercy Hospitalca [place] HospitalComment on above:Performed By: #### MG ####[facility] ([facility])[address] [facility] [address], [place] [address] VIRMICROALBUMIN / CREATININE URINE RATIOon 94-34-4104Bhgrkdx DL <= 20 mg/L (U) [Mass/Vol]12.4 mg/dLHigh0.0-1.9Pro[facility]ica [facility]ers HospitalComment on above:Performed By: #### MALBU ####[facility] ([facility])[address] [facility] [address], [place] [address] VIRMALB/CREAT VBQTM893.9 mg/gHigh0.0-30.0ProMedica [facility]ers HospitalComment on above:Performed By: #### MALBU ####[facility] ([facility])[address] [facility] [address], [place] [address] VIRURINE CREATININE,RDM 87.37 mg/dLNormalProMedica Childers HospitalComment on above:Performed By: #### MALBU ####[facility] ([facility])[address] [facility] [address] [address] VIRMRSA PCR NASAL SWABon [id number] PCR NASAL SWAB NegativeNormalNegativeProMedica Childers HospitalComment on above:Performed By: #### MRSPCR ####[facility] ([facility])[address] [facility] [address], [place] [address] VIRSODIUM, URINE, RANDOMon 22-16-1717Yiztvy (U) [Moles/Vol] 33 mmol/LNormalProMedica Childers HospitalComment on above:Performed By: #### UNAR ####[facility] ([facility])[address] [facility] [address], [place] [address] VIRURINALYSISon 47-20-3694Grjensajd Ql (U)NegativeNormalNegativeProMedica Childers HospitalComment on above:Performed By: #### UA ####[facility] ([facility])[address] [facility] [address], [place] [address] VIRBLOOD/HGB ModerateAbnormalNegativeProMedica Childers HospitalComment on above:Performed By: #### UA ####[facility] ([facility])[address], [place] [address] VIRColor (U)YellowNormalYellowProMedica [facility] on above:Performed By: #### UA ####[facility] ([facility])[address], [place] [address] VIRGlucose Ql (U)NegativeNormal NegativeProMedica Wheatfield HospitalComment on above:Performed By: #### UA ####[facility] ([facility])[address], [place] [address] VIRKetones Ql (U)NegativeNormalNegativeProMedica Wheatfield HospitalComment on above:Performed By: #### UA ####[facility] ([facility])[address], [place] [address] VIRLeukocyte esterase Test strip Ql (U)Large AbnormalNegativeProMedica Wheatfield HospitalComment on above:Performed By: #### UA ####[facility] ([facility])[address], [place] [address] VIRNitrite Ql (U)NegativeNormalNegativeProMedica Wheatfield HospitalComment on above:Performed By: #### UA ####[facility] ([facility])[address], [place] [address] VIRPH,URINE6.3Kbqidw5.0-8.5ProMedica Wheatfield HospitalComment on above:Performed By: #### UA ####[facility] ([facility])[address], [place] [address] VIRProtein Ql (U)70 mg/dLAbnormalNegativeProMedica Wheatfield HospitalComment on above:Performed By: #### UA ####[facility] [facility] ([facility])[address], [place] [address] VIRR.B.UHKSO41Lehe2-8SrtBwjggs Childers HospitalComment on above:Performed By: #### UA ####[facility] ([facility])[address], [place] [address] VIRSpecific gravity (U) [Rel density]1.017 Normal1.003-1.035ProMedica Childers HospitalComment on above:Performed By: #### UA ####[facility] ([facility])[address], [place] [address] VIRSQUAMOUS EPITHELIUM>^85Zwng7-5WfbBubdew Childers HospitalComment on above:Performed By: #### UA ####[facility] ([facility])[address], [place] [address] VIRTRANSITIONAL ODUYE0Lfyl<=0ProMedica Childers HospitalComment on above:Performed By: #### UA ####[facility] ([facility])[address], [place] [address] VIRTURBIDITYCloudy AbnormalClearProMedica Childers HospitalComment on above:Performed By: #### UA ####[facility] ([facility])[address], [place] [address] VIRUROBILINOGEN<1.1 eu/dLNormal<1.1 eu/dLProMedica Childers HospitalComment on above:Performed By: #### UA ####[facility] ([facility])[address], [place] [address] VIRW.B.JKIEA593Kgeb4-2StcTucwoc Childers HospitalComment on above:Performed By: #### UA ####[facility] ([facility])[address], [place] [address] VIRWBC CLUMPSFew AbnormalNoneProMedica Childers HospitalComment on above:Performed By: #### UA ####[facility] ([facility])[address], [place] [address] VIRURINE CREATININE,RANDOMon [id number] CREATININE,RDM87.00 mg/dL NormalProMedica Wheatfield HospitalComment on above:Performed By: #### UCRR ####[facility] ([facility])[address] [facility] [address], [place] [address] VIRURINE CULTUREon [id number] identified Cx Nom (U)CULTURE RESULTS 10-50,000 ORGANISMS/mL NORMAL UROGENITAL FLORANormalProOur Lady Of Mercy Hospitalca [facility] Comment on above:Performed By: #### UC ####[facility] ([facility])[address] [facility] [address], [place] [address] VIRAPTTon 13-21-3453ATAUVEC APTT CancelledNormalProOur Lady Of Mercy Hospitalca [place] HospitalComment on above:Order Comment: Marti Sheffield RN at 1646B-TYPE NATRIURETIC PEPTIDEon [id number]-TYPE NATRIURETIC PEPTIDE BNP B-TYPE NATRIURETIC PEPTIDE CancelledNormalProOur Lady Of Mercy Hospitalca [place] HospitalComment on above:Order Comment: BNP OUT OF STABILITY, TUBE NEVER RECEIVED IN CHEMISTRY BEDSIDE GLUCOSEon [id number] [Mass/Vol]328 mg/eMUnpv69-50HpmVwpiuu [place] HospitalComment on above:Performed By: #### BEDG ####[facility] ([facility])[address] [place] [address] VIRGlucose [Mass/Vol]347 mg/zQLfsq79-65 [facility] [place] HospitalComment on above:Performed By: #### BEDG ####[facility] ([facility])[address] [place] [address] VIRGlucose [Mass/Vol]244 mg/uHWent69-57EjkUldtez [place] HospitalComment on above:Performed By: #### BEDG ####[facility] ([facility])[address] [place] [address] VIRGlucose [Mass/Vol]223 mg/sBFfgn45-08EiuUctvoo [place] HospitalComment on above:Performed By: #### BEDG ####[facility] ([facility])[address] [place] [address] VIRBLOOD CULTUREon [id number] identified Cx Nom (Bld)CULTURE RESULTS NO GROWTH 5 DAYSNormalProSt. John Of God HospitalComment on above:Order Comment: *SIRS Criteria: (must display 2 without other explanation)-Temperature < 36 or >38-Pulse >90-Resp rate >20-WBC less than 4K or greater than 12KRepeat blood cultures not needed:-To document that a blood culture is a contaminant when 1 of 2 bottles is positive for a common contaminant (already listed in [facility] with the culture result)-To document clearance of gram negative bacteremia in patients with suspected urinary source who are improvingPerformed By: #### BC ####[facility] ([facility])[address] [address] VIROrder Comment: *SIRS Criteria: (must display 2 [...] COUNT (10*3/UL) BY AUTOMATED COUNT0.0 10*3/uLNormal0.0-0.2 [facility] Medical CenterComment on above:Performed By: #### CBCA ####[facility] ([facility])[address] [address] VIR BASOPHILS RELATIVE PERCENT BY AUTOMATED COUNT0.2 %NormalProSt. John Of God HospitalComment on above:Performed By: #### CBCA ####[facility] ([facility])[address] [facility] [address]TOSELECT [facility] [address] VIRCELLAVISION DIFFERENTIAL TYPEAUTOMATED DIFFERENTIALNoSumma HealthComment on above:Performed By: #### CBCA ####[facility] ([facility])[address], [place] [address] VIREosinophils (Bld) [#/Vol]0.0 10*3/uL Normal0.0-0.4[facility] HospitalComment on above:Performed By: #### CBCA ####[facility] ([facility])[address], [place] [address] VIREOSINOPHILS RELATIVE PERCENT BY AUTOMATED COUNT0.1 %NormalProDayton Children'S Hospital HospitalComment on above:Performed By: #### CBCA ####[facility] ([facility])[address], [place] [address] VIRErythrocyte distribution width (RBC) [Ratio]18.2 %High11.5-15ProDayton Children'S Hospital [facility] on above:Performed By: #### CBCA ####[facility] ([facility])[address], [place] [address] VIRHematocrit (Bld) [Volume fraction]20.1 %Xkn07-42BotTsxksl [place] HospitalComment on above:Performed By: #### CBCA ####[facility] ([facility])[address], [place] [address] VIRHemoglobin (Bld) [Mass/Vol]6.4 g/dLCritically low 11.7-15.5PClinton Memorial Hospital HospitalComment on above:Performed By: #### CBCA ####[facility] ([facility])[address], [place] [address] VIRLYMPHOCYTES ABSOLUTE COUNT (10*3/UL) BY AUTOMATED COUNT1.4 10*3/uL Normal1.0-3.5PClinton Memorial Hospital HospitalComment on above:Performed By: #### CBCA ####[facility] ([facility])[address], [place] [address] VIRLYMPHOCYTES RELATIVE PERCENT BY AUTOMATED COUNT17.2 %NormalProSelect Medical Specialty Hospital - Cincinnatio HospitalComment on above:Performed By: #### CBCA ####[facility] ([facility])[address], [place] [address] VIRMCH (RBC) [Entitic mass]26.7 slAoz16-60AbnJfzbkj Childers HospitalComment on above:Performed By: #### CBCA ####[facility] ([facility])[address], [place] [address] VIRMCHC (RBC) [Mass/Vol]32.0 g/tFGyafvs88-63ZjfIewxxw Childers HospitalComment on above:Performed By: #### CBCA ####[facility] ([facility])[address], [place] [address] VIRMCV (RBC) [Entitic vol]83 kXIbnmju87-688WihCnduap Childers HospitalComment on above:Performed By: #### CBCA ####[facility] ([facility])[address], [place] [address] VIRMONOCYTES ABSOLUTE COUNT (10*3/UL) BY AUTOMATED COUNT0.9 10*3/uLNormal0.0-0.9ProMedica Childers HospitalComment on above:Performed By: #### CBCA ####[facility] ([facility])[address], [place] [address] VIRMONOCYTES RELATIVE PERCENT BY AUTOMATED COUNT10.6 %Normal [facility] [place] HospitalComment on above:Performed By: #### CBCA ####[facility] ([facility])[address], [place] [address] VIR NEUTROPHILS ABSOLUTE COUNT BY AUTOMATED COUNT5.9 10*3/uLNormal1.5-6.6ProMedica Childers HospitalComment on above:Performed By: #### CBCA ####[facility] ([facility])[address], [place] [address] VIRNEUTROPHILS RELATIVE PERCENT BY AUTOMATED COUNT71.9 %NormalProMedica Childers HospitalComment on above:Performed By: #### CBCA ####[facility] ([facility])[address], [place] [address] VIRPlatelet mean volume (Bld) [Entitic vol]8.4 fLNormal7-12ProMedica Childers HospitalComment on above:Performed By: #### CBCA ####[facility] ([facility])[address], [place] [address] VIRPlatelets (Bld) [#/Vol]172 10*3/kMYylhrr990-295BfjExchnl Childers HospitalComment on above:Performed By: #### CBCA ####[facility] ([facility])[address], [place] [address] VIRRBC COUNT2.42 X10E12/LLow3.8-5.2ProMedica Childers HospitalComment on above:Performed By: #### CBCA ####[facility] ([facility])[address], [place] [address] VIRWBC (Bld) [#/Vol]8.2 10*3/uLNormal4-11ProMedica Childers HospitalComment on above:Performed By: #### CBCA ####[facility] ([facility])[address], [place] [address] VIRBASOPHILS ABSOLUTE COUNT (10*3/UL) BY AUTOMATED COUNT0.0 10*3/uLNormal0.0-0.2ProMedica Childers HospitalComment on above:Performed By: #### CBCA ####[facility] ([facility])[address], [place] [address] VIRBASOPHILS RELATIVE PERCENT BY AUTOMATED COUNT0.1 %NormalProMedica Childers HospitalComment on above: Performed By: #### CBCA ####[facility] ([facility])[address], [place] [address] VIRCELLAVISION DIFFERENTIAL TYPEAUTOMATED DIFFERENTIALNormalProDayton Children'S Hospital HospitalComment on above:Performed By: #### CBCA ####[facility] ([facility])[address], [place] [address] VIREosinophils (Bld) [#/Vol]0.0 10*3/uLNormal0.0-0.4 [facility] [place] HospitalComment on above:Performed By: #### CBCA ####[facility] ([facility])[address], [place] [address] VIR EOSINOPHILS RELATIVE PERCENT BY AUTOMATED COUNT0.0 %NormalProDayton Children'S Hospital HospitalComment on above:Performed By: #### CBCA ####[facility] ([facility])[address], [place] [address] VIRErythrocyte distribution width (RBC) [Ratio]17.8 %High11.5-15ProDayton Children'S Hospital Hospital Comment on above:Performed By: #### CBCA ####[facility] ([facility])[address], [place] [address] VIRHematocrit (Bld) [Volume fraction]22.3 %Wwo03-61JexMgnoqa [place] HospitalComment on above:Performed By: #### CBCA ####[facility] ([facility])[address], [place] [address] VIRHemoglobin (Bld) [Mass/Vol]7.5 g/dLLow11.7-15.5ProMedTriHealth [facility] HospitalComment on above:Performed By: #### CBCA ####[facility] ([facility])[address], [place] [address] VIRLYMPHOCYTES ABSOLUTE COUNT (10*3/UL) BY AUTOMATED COUNT1.2 10*3/uLNormal1.0-3.5PClinton Memorial Hospital HospitalComment on above:Performed By: #### CBCA ####[facility] ([facility])[address], [place] [address] VIRLYMPHOCYTES RELATIVE PERCENT BY AUTOMATED COUNT14.3 %NormalProMedica [place] HospitalComment on above:Performed By: #### CBCA ####[facility] ([facility])[address], [place] [address] VIRMCH (RBC) [Entitic mass]27.1 pg Rehdvi34-68LrhMhilvf [place] HospitalComment on above:Performed By: #### CBCA ####[facility] ([facility])[address], [place] [address] VIRMCHC (RBC) [Mass/Vol]33.4 g/zEScqoro79-87RuqFdvtzs [place] [facility] Comment on above:Performed By: #### CBCA ####[facility] ([facility])[address], [place] [address] VIRMCV (RBC) [Entitic vol]81 fL Olxqli03-741AkyTferiu [place] HospitalComment on above:Performed By: #### CBCA ####[facility] ([facility])[address], [place] [address] VIRMONOCYTES ABSOLUTE COUNT (10*3/UL) BY AUTOMATED COUNT1.0 10*3/uLHigh 0.0-0.9[facility] [place] HospitalComment on above:Performed By: #### CBCA ####[facility] ([facility])[address], [place] [address] VIRMONOCYTES RELATIVE PERCENT BY AUTOMATED COUNT11.6 %NormalProMedica [place] HospitalComment on above:Performed By: #### CBCA ####[facility] ([facility])[address], [place] [address] VIRNEUTROPHILS ABSOLUTE COUNT BY AUTOMATED COUNT6.4 10*3/uLNormal1.5-6.6Pro[facility] Childers HospitalComment on above:Performed By: #### CBCA ####[facility] ([facility])[address], [place] [address] VIRNEUTROPHILS RELATIVE PERCENT BY AUTOMATED COUNT74.0 %NormalProDayton Children'S Hospital HospitalComment on above: Performed By: #### CBCA ####[facility] ([facility])[address], [place] [address] VIRPlatelet mean volume (Bld) [Entitic vol]8.3 fLNormal7-12PClinton [facility] Hospital HospitalComment on above:Performed By: #### CBCA ####[facility] ([facility])[address], [place] [address] VIRPlatelets (Bld) [#/Vol]167 10*3/cKQfrxij558-293SzwEhpeil [place] HospitalComment on above:Performed By: #### CBCA ####[facility] ([facility])[address], [place] [address] VIRRBC COUNT2.75 X10E12/LLow3.8-5.2PClinton Memorial Hospital HospitalComment on above:Performed By: #### CBCA ####[facility] ([facility])[address], [place] [address] VIRWBC (Bld) [#/Vol]8.6 10*3/uLNormal4-11ProDayton Children'S Hospital HospitalComment on above:Performed By: #### CBCA ####[facility] ([facility])[address], [place] [address] VIRCOMPREHENSIVE METABOLIC PANELon 50-88-1360Hmwbvlt [Mass/Vol]3.0 g/dLLow3.2-5.3PClinton Memorial Hospital HospitalComment on above:Performed By: #### CMP ####[facility] ([facility])[address] [address] VIRALP [Catalytic activity/Vol]112 U/WHgranc21-828JdpPxmzem [place] HospitalComment on above: Performed By: #### CMP ####[facility] ([facility])[address] [address] VIRALT [Catalytic activity/Vol]U/LNormal<=31 [facility]ers HospitalComment on above:Performed By: #### CMP ####[facility] ([facility])[address] [address] VIR Anion gap [Moles/Vol]12 mmol/LNormal5-15[facility] HospitalComment on above:Performed By: #### CMP ####[facility] ([facility])[address] [address] VIRAST [Catalytic activity/Vol]23 U/LNormal <=41Pro[facility] HospitalComment on above:Performed By: #### CMP ####[facility] ([facility])[address] [address] VIR Bilirubin [Mass/Vol]0.2 mg/dLLow0.3-1.2Pro[facility]ers HospitalComment on above:Performed By: #### CMP ####[facility] ([facility])[address] [address] VIRCalcium [Mass/Vol]8.1 mg/dLLow8.5-10.5 [facility]ers HospitalComment on above:Performed By: #### CMP ####[facility] ([facility])[address] [address] VIR Chloride [Moles/Vol]101 mmol/YJdoflp93-296KbpGxyvuj [facility]ers HospitalComment on above:Performed By: #### CMP ####[facility] ([facility])[address] [address] VIRCO2 [Moles/Vol]22 mmol/CLaxenp77-57 [facility]ers HospitalComment on above:Performed By: #### CMP ####[facility] ([facility])[address] [address] VIR Creatinine [Mass/Vol]2.40 mg/dLHigh0.40-1.00ProOur Lady Of Mercy Hospitalca [place] HospitalComment on above:Result Comment: METHOD TRACEABLE TO IDMS STANDARDPerformed By: #### CMP ####[facility] ([facility])[address] [address] VIRGFR/1.73 sq M.predicted among non-blacks MDRD (S/P/Bld) [Vol rate/Area] 20 mL/min/{1.73_m2}Low>=60Pro[facility] [place] HospitalComment on above:Result Comment: Reported eGFR is based on theCKD-EPI 2020 equation that doesnot use a race coefficient.Performed By: #### CMP ####[facility] ([facility])[address] [address] VIRGlucose [Mass/Vol]294 mg/dLHigh 65-99ProDayton Children'S Hospital HospitalComment on above:Performed By: #### CMP ####[facility] ([facility])[address] [address] VIR Potassium [Moles/Vol]4.8 mmol/LNormal3.5-5.0ProDayton Children'S Hospital HospitalComment on above:Performed By: #### CMP ####[facility] ([facility])[address] [address] VIRProtein [Mass/Vol]6.2 g/dLNormal6.0-8.0 ProMvaughan regional medical centera [place] HospitalComment on above:Performed By: #### CMP ####[facility] ([facility])[address] [address] VIR Sodium [Moles/Vol]135 mmol/ARmcrtx756-086XftZpkaqa [place] HospitalComment on above:Performed By: #### CMP ####[facility] ([facility])[address] [address] VIRUrea nitrogen [Mass/Vol]39 mg/dLHigh5-27 [facility] HospitalComment on above:Performed By: #### CMP ####[facility] ([facility])[address] [address] VIR Albumin [Mass/Vol]3.2 g/dLNormal3.2-5.3PProtestant HospitalComment on above:Performed By: #### CMP ####[facility] ([facility])[address] [address] VIRALP [Catalytic activity/Vol]116 U/LNormal 39-130ProSt. John Of God HospitalComment on above:Performed By: #### CMP ####[facility] ([facility])[address] [address] VIRALT [Catalytic activity/Vol]7 U/LNormal<=31PProtestant Hospital Comment on above:Performed By: #### CMP ####[facility] ([facility])[address] [address] VIRAnion gap [Moles/Vol]11 mmol/L Normal5-15ProSt. John Of God HospitalComment on above:Performed By: #### CMP ####[facility] ([facility])[address] [address] VIRAST [Catalytic activity/Vol]28 U/LNormal<=41ProSt. John Of God Hospital Comment on above:Performed By: #### CMP ####[facility] ([facility])[address] [address] VIRBilirubin [Mass/Vol]0.3 mg/dL Normal0.3-1.2PProtestant HospitalComment on above:Performed By: #### CMP ####[facility] ([facility])[address] [address] VIRCalcium [Mass/Vol]8.8 mg/dLNormal8.5-10.5PProtestant Hospital Comment on above:Performed By: #### CMP ####[facility] ([facility])[address] [address] VIRChloride [Moles/Vol]96 mmol/LLow 98-109ProMedica Childers HospitalComment on above:Performed By: #### CMP ####[facility] ([facility])[address] [address] VIRCO2 [Moles/Vol]30 mmol/KUxxbyd41-66YftNnayhv Childers HospitalComment on above:Performed By: #### CMP ####[facility] [facility] [address] VIRCreatinine [Mass/Vol]2.29 mg/dLHigh 0.40-1.00Pro[facility] HospitalComment on above:Result Comment: METHOD TRACEABLE TO IDMS STANDARDPerformed By: #### CMP ####[facility] ([facility])[address] [address] VIRGFR/1.73 sq M.predicted among non-blacks MDRD (S/P/Bld) [Vol rate/Area]21 mL/min/{1.73_m2} Low>=60ProMedica Childers HospitalComment on above:Result Comment: Reported eGFR is based on theCKD-EPI 2020 equation that doesnot use a race coefficient. Performed By: #### CMP ####[facility] ([facility])[address] [address] VIRGlucose [Mass/Vol]198 mg/yKXtcy24-55PzwLymcuv [place] HospitalComment on above:Performed By: #### CMP ####[facility] ([facility])[address] [address] VIRPotassium [Moles/Vol]5.0 mmol/LNormal3.5-5.0Pro[facility] HospitalComment on above: Performed By: #### CMP ####[facility] ([facility])[address] [address] VIRProtein [Mass/Vol]6.4 g/dLNormal6.0-8.0 [facility] HospitalComment on above:Performed By: #### CMP ####[facility] ([facility])[address] [facility] [address] [address] VIR Sodium [Moles/Vol]137 mmol/FDljvas932-631UdaXjwzml [place] HospitalComment on above:Performed By: #### CMP ####[facility] ([facility])[address] [facility] [address] [address] VIRUrea nitrogen [Mass/Vol]37 mg/dLHigh5-27 [facility] HospitalComment on above:Performed By: #### CMP ####[facility] ([facility])[address] [facility] [address] [address] VIR HEMOGLOBIN A1Con 72-54-8261Hejhkup [Mass/Vol]197 mg/dLNormalProDayton Children'S Hospital HospitalComment on above:Performed By: #### HA1C ####[facility] ([facility])[address] [facility] [address], [place] [address] WBZYmQ7g (Bld) [Mass fraction]8.5 %High4.4-5.6ProSt. John Of God HospitalComment on above:Result Comment: ADA Guidelines Result HgbA1c Normal : less than 5.7 % Prediabetes : 5.7 % to 6.4 % Diabetes : > 6.4 % Use with caution in patients with abnormal hemoglobin variants as the half-life of red blood cells and in vivo glycation rates are affected.Performed By: #### HA1C ####[facility] ([facility])[address] [facility] [address], [place] [address] VIR HEMOGLOBIN AND HEMATOCRIT, BLOODon 16-97-0054Jevejjeued (Bld) [Volume fraction] 22.9 %Sje57-73ClmJjiams [place] HospitalComment on above:Performed By: #### HH ####[facility] ([facility])[address], [place] [address] VIRHemoglobin (Bld) [Mass/Vol]7.5 g/dLLow11.7-15.5[facility]Med[facility] HospitalComment on above:Performed By: #### HH ####[facility] ([facility])[address], [place] [address] VIRHematocrit (Bld) [Volume fraction]24.3 %Jhq88-25FiuXhvuku [place] HospitalComment on above: Performed By: #### HH ####[facility] ([facility])[address], [place] [address] VIRHemoglobin (Bld) [Mass/Vol]8.0 g/dLLow 11.7-15.5ProMedTriHealth [facility] HospitalComment on above:Performed By: #### HH ####[facility] ([facility])[address], [place] [address] VIRLACTATEon 35-24-5095Djrhpol [Moles/Vol]2.7 mmol/LHigh0.4-2.0[facility] HospitalComment on above:Performed By: #### LACTA ####[facility] ([facility])[address], [place] [address] VIRLACTATE W/ REFLEXon 56-02-8072GFZDCPX W/REFLEX2.3 mmol/LHigh0.4-2.0[facility] HospitalComment on above:Performed By: #### LACTS ####[facility] ([facility])[address], [place] [address] VIRLDHon 31-11-6546MJC 225 U/QHhgvbe341-886JwkMlgvoe [place] HospitalComment on above:Performed By: #### LDH ####[facility] ([facility])[address] [address] VIRMAGNESIUMon 12-47-0651Rsdrvmyqq [Mass/Vol]2.0 mg/dLNormal 1.8-2.6ProDay[facility] HospitalComment on above:Performed By: #### MG ####[facility] ([facility])[address] [facility] [address], [place] [address] VIRMagnesium [Mass/Vol]2.2 mg/dLNormal1.8-2.6[facility] Hospital Comment on above:Performed By: #### MG ####[facility] ([facility])[address] [place] [address] VIRPHOSPHORUSon 07-14-2025 Phosphate [Mass/Vol]6.1 mg/dLHigh2.4-4.9[facility] HospitalComment on above:Performed By: #### PHOS ####[facility] ([facility])[address] [address] VIRPROCALCITONINon 50-88-1918ESFVHRZBYDAAI 0.34 ng/mLHigh<0.05[facility] HospitalComment on above:Order Comment: <0.50 ng/mL - Low risk of severe sepsis and/or septic shock.<2.00 ng/mL - Recom mend retesting within 6-24 hours.>2.00 ng/mL - High risk of sepsis and/or septic shock.Performed By: #### PCAL ####[facility] ([facility])[address] [address] VIRPROTIME AND INRon 89-29-5425EZSURKP AND INRPINR PROTIME & INR CancelledNormalProDayton Children'S Hospital HospitalComment on above: Order Comment: Marti Sheffield RN at 1646RETICULOCYTESon 00-98-0595FWJCTSBJJBFX COUNT1.6 %Normal0.4-2.2PProtestant HospitalComment on above:Performed By: #### RETIC ####[facility] ([facility])[address] [place] [address] VIRXR CHEST 1 VWon 31-04-4007TH CHEST 1 VWNormalProMedica Wheatfield HospitalBEDSIDE GLUCOSEon 51-18-1877Medzpdm [Mass/Vol]364 mg/mJPdqu47-92 ProMvaughan regional medical centera [place] HospitalComment on above:Performed By: #### BEDG ####[facility] ([facility])[address] [place] [address] VIRGlucose [Mass/Vol]282 mg/rWGabq87-10HkhVbxira [place] HospitalComment on above:Performed By: #### BEDG ####[facility] ([facility])[address] [facility] [place] [address] VIRGlucose [Mass/Vol]330 mg/zJAndt92-02VuuQtpwvd [place] HospitalComment on above:Performed By: #### BEDG ####[facility] ([facility])[address] [place] [address] VIRGlucose [Mass/Vol]173 mg/wGNahv37-09PjmUnmdlh [place] HospitalComment on above:Performed By: #### BEDG ####[facility] ([facility])[address] [place] [address] VIRCA 125on 77-93-0043WQ 103797 U/mLHigh <=35ProSt. John Of God HospitalComment on above:Result Comment: The method used for this test is BeckmanCoulter DXI chemiluminescent immunoassay.Values obtained by different assay methodscannot be used interchangeably.Performed By: #### C125 ####[facility] ([facility])[address] [facility] [address], [place] [address] VIRCANCER ANTIGEN 15-3on 64-65-5599SX 15 327.6 U/mLNormal <=31.3Pro[facility] Medical CenterComment on above:Result Comment: The method used for this test is BeckmanCoulter DXI chemiluminescent immunoassay.Values obtained by different assay methodscannot be used interchangeably.Performed By: #### C153 ####[facility] ([facility])[address], [place] [address] VIRCANCER ANTIGEN 27.29on 81-02-3974SBQPXV ANTGN 27.10191.5 U/mLHigh<=39.0ProSt. John Of God HospitalComment on above:Result Comment: INTERPRETIVE INFORMATION: Cancer Antigen [...] alone for a diagnosis of malignancy.Methodology: Siemens IceCure Medical IM BR 27.29 (BR) chemiluminescentimmunoassay was used. Results obtained with different assaymethods or kits cannot be used interchangeably.Performed By: [address] [place], [place] [address]Xaunqhnefv Director: Brendon Ruiz MD, PhDCLIA Number: [id number] By: #### CANTGN ####[facility] ([facility])[address] [place] [address] VIRCBC WITH AUTO DIFFERENTIALon 14-58-9958WWVTFJTEW ABSOLUTE COUNT (10*3/UL) BY AUTOMATED COUNT0.1 10*3/uLNormal0.0-0.2[facility] Medical CenterComment on above:Performed By: #### CBCA ####[facility] ([facility])[address] [address] VIRBASOPHILS RELATIVE PERCENT BY AUTOMATED COUNT0.7 %Normal [facility] Medical CenterComment on above:Performed By: #### CBCA ####[facility] ([facility])[address], [place] [address] VIR CELLAVISION DIFFERENTIAL TYPEAUTOMATED DIFFERENTIALNormalProMedica Childers HospitalComment on above:Performed By: #### CBCA ####[facility] ([facility])[address], [place] [address] VIREosinophils (Bld) [#/Vol]0.4 10*3/uLNormal0.0-0.4ProDay[facility] Hospital HospitalComment on above: Performed By: #### CBCA ####[facility] ([facility])[address], [place] [address] VIREOSINOPHILS RELATIVE PERCENT BY AUTOMATED COUNT5.0 %NormalProDayton Children'S Hospital HospitalComment on above:Performed By: #### CBCA ####[facility] ([facility])[address], [place] [address] VIRErythrocyte distribution width (RBC) [Ratio]17.9 %High 11.5-15ProDay[facility]'S Hospital HospitalComment on above:Performed By: #### CBCA ####[facility] ([facility])[address], [place] [address] VIRHematocrit (Bld) [Volume fraction]29.8 %Gsl67-62JgsMhtnpv [place] HospitalComment on above:Performed By: #### CBCA ####[facility] ([facility])[address], [place] [address] VIRHemoglobin (Bld) [Mass/Vol]9.8 g/dLLow11.7-15.5PRapides Regional Medical Centerica [place] HospitalComment on above: Performed By: #### CBCA ####[facility] ([facility])[address], [place] [address] VIRLYMPHOCYTES ABSOLUTE COUNT (10*3/UL) BY AUTOMATED COUNT1.9 10*3/uLNormal1.0-3.5PClinton Memorial Hospital HospitalComment on above:Performed By: #### CBCA ####[facility] ([facility])[address], [place] [address] VIRLYMPHOCYTES RELATIVE PERCENT BY AUTOMATED COUNT25.3 %NormalProMedica Childers HospitalComment on above:Performed By: #### CBCA ####[facility] ([facility])[address], [place] [address] VIRMCH (RBC) [Entitic mass]26.6 uzPrw59-06AaoRztexw Childers HospitalComment on above:Performed By: #### CBCA ####[facility] ([facility])[address] [facility] [address], [place] [address] VIRMCHC (RBC) [Mass/Vol]33.0 g/eZBwyrks10-56HbdCuinzc Childers HospitalComment on above: Performed By: #### CBCA ####[facility] ([facility])[address] [facility] [address], [place] [address] VIRMCV (RBC) [Entitic vol]81 cWShounz48-769 [facility] HospitalComment on above:Performed By: #### CBCA ####[facility] ([facility])[address], [place] [address] VIR MONOCYTES ABSOLUTE COUNT (10*3/UL) BY AUTOMATED COUNT1.0 10*3/uLHigh0.0-0.9 [facility] HospitalComment on above:Performed By: #### CBCA ####[facility] ([facility])[address], [place] [address] VIR MONOCYTES RELATIVE PERCENT BY AUTOMATED COUNT14.0 %NormalProMedica Childers HospitalComment on above:Performed By: #### CBCA ####[facility] ([facility])[address], [place] [address] VIRNEUTROPHILS ABSOLUTE COUNT BY AUTOMATED COUNT4.0 10*3/uLNormal1.5-6.6Pro[facility] Childers HospitalComment on above:Performed By: #### CBCA ####[facility] ([facility])[address], [place] [address] VIRNEUTROPHILS RELATIVE PERCENT BY AUTOMATED COUNT55.0 %NormalProDayton Children'S Hospital HospitalComment on above:Performed By: #### CBCA ####[facility] ([facility])[address], [place] [address] VIRPlatelet mean volume (Bld) [Entitic vol]8.1 fLNormal7-12 [facility] HospitalComment on above:Performed By: #### CBCA ####[facility] ([facility])[address], [place] [address] VIR Platelets (Bld) [#/Vol]222 10*3/aEThughz270-184UkcRaxmnp [place] HospitalComment on above:Performed By: #### CBCA ####[facility] ([facility])[address], [place] [address] VIRRBC COUNT3.69 X10E12/LLow 3.8-5.2ProMedTriHealth [facility] HospitalComment on above:Performed By: #### CBCA ####[facility] ([facility])[address], [place] [address] VIRWBC (Bld) [#/Vol]7.4 10*3/uLNormal4-11Pro[facility] HospitalComment on above:Performed By: #### CBCA ####[facility] ([facility])[address], [place] [address] VIRCOMPREHENSIVE METABOLIC PANELon 75-25-4376Bxupggk [Mass/Vol]3.7 g/dLNormal3.2-5.3PClinton Memorial Hospital Hospital Comment on above:Performed By: #### CMP ####[facility] ([facility])[address] [address] VIRALP [Catalytic activity/Vol]133 U/WFxms37-635QcmDrvehe [place] HospitalComment on above:Performed By: #### CMP ####[facility] ([facility])[address] [address] VIRALT [Catalytic activity/Vol]10 U/LNormal<=31PProtestant Hospital Comment on above:Performed By: #### CMP ####[facility] ([facility])[address] [address] VIRAnion gap [Moles/Vol]9 mmol/L Normal5-15ProSt. John Of God HospitalComment on above:Performed By: #### CMP ####[facility] ([facility])[address] [address] VIRAST [Catalytic activity/Vol]24 U/LNormal<=41[facility] Comment on above:Performed By: #### CMP ####[facility] ([facility])[address] [address] VIRBilirubin [Mass/Vol]0.4 mg/dL Normal0.3-1.2PClinton Memorial Hospital HospitalComment on above:Performed By: #### CMP ####[facility] ([facility])[address] [address] VIRCalcium [Mass/Vol]9.4 mg/dLNormal8.5-10.5PProtestant Hospital Comment on above:Performed By: #### CMP ####[facility] ([facility])[address] [address] VIRChloride [Moles/Vol]95 mmol/LLow 98-109ProSt. John Of God HospitalComment on above:Performed By: #### CMP ####[facility] ([facility])[address] [address] VIRCO2 [Moles/Vol]32 mmol/ERlsvif31-75EilOxrboxProtestant HospitalComment on above:Performed By: #### CMP ####[facility] ([facility])[address] [address] VIRCreatinine [Mass/Vol]1.73 mg/dLHigh 0.40-1.00[facility] [place] HospitalComment on above:Result Comment: METHOD TRACEABLE TO IDMS STANDARDPerformed By: #### CMP ####[facility] ([facility])[address] [facility] [address] [address] VIRGFR/1.73 sq M.predicted among non-blacks MDRD (S/P/Bld) [Vol rate/Area]30 mL/min/{1.73_m2} Low>=60ProMedica Childers HospitalComment on above:Result Comment: Reported eGFR is based on theCKD-EPI 2020 equation that doesnot use a race coefficient. Performed By: #### CMP ####[facility] ([facility])[address] [facility] [address] [address] VIRGlucose [Mass/Vol]160 mg/hYOrju59-62HycGhhfkq [place] HospitalComment on above:Performed By: #### CMP ####[facility] ([facility])[address] [facility] [address] [address] VIRPotassium [Moles/Vol]4.1 mmol/LNormal3.5-5.0ProOur Lady Of Mercy Hospitalca [place] HospitalComment on above: Performed By: #### CMP ####[facility] ([facility])[address] [address] VIRProtein [Mass/Vol]7.3 g/dLNormal6.0-8.0 ProMvaughan regional medical centera [place] HospitalComment on above:Performed By: #### CMP ####[facility] ([facility])[address] [facility] [address],[place] [address] VIR Sodium [Moles/Vol]136 mmol/GDtnatf309-569ZnhRobvlc [place] HospitalComment on above:Performed By: #### CMP ####[facility] ([facility])[address] [address] VIRUrea nitrogen [Mass/Vol]24 mg/dLNormal5-27 [facility] HospitalComment on above:Performed By: #### CMP ####[facility] ([facility])[address] [address] VIR FERRITINon 92-38-6850Kriffkzq [Mass/Vol]290 ng/oNCnvxfj62-984JqtKzkaow [place] HospitalComment on above:Performed By: #### FERR ####[facility] ([facility])[address], [place] [address] VIRFOLATEon 07-13-2025 FOLIC ACID7.9 ng/mLNormal>5.8ProDay[facility] HospitalComment on above:Performed By: #### FOLI ####[facility] ([facility])[address], [place] [address] VIRHAPTOGLOBINon 35-52-9329MSJJAJUMFCC507 mg/rVNmit81-840 [facility] HospitalComment on above:Performed By: #### HAPT ####[facility] ([facility])[address], [place] [address] VIR HE4, Son 40-24-3073CV4, S272 pmol/LHigh<=140ProSt. John Of God HospitalComment on above:Result Comment: ADDITIONAL INFORMATION The testing method is an electrochemiluminescenceassay manufactured by [employer] andperformed on the Modular or Pilar system.Values obtained with different assay methods or kitsmay be different and cannot be used interchangeably.Test results cannot be interpreted as absolute evidencefor the presence or absence of malignant disease.Test Performed by:[facility] [place] [facility] [place] [place] [id number] Director: Radha Mccormack Ph.D.; CLIA# [id number] By: #### HE4S ####[facility] [place] ([facility])[address] [place] [address] VIRHEMOGLOBIN AND HEMATOCRIT, BLOODon 29-77-5842CXAFZJIBTJ AND HEMATOCRIT, BLOODHH HEMOGLOBIN AND HEMATOCRIT, BLOOD CancelledNormalProMedica Childers HospitalIRON AND TIBCon 82-71-5492Sopv [Mass/Vol]24 ug/pOSlq84-997JevMcpgkz Childers HospitalComment on above:Performed By: #### FEPR ####[facility] ([facility])[address], [place] [address] VIRIRON PBNQJWF601 ug/wUClz699-703AtpFkmprw [facility] HospitalComment on above:Performed By: #### FEPR ####[facility] ([facility])[address], [place] [address] VIRIRON [id number] % [id number] Childers HospitalComment on above: Performed By: #### FEPR ####[facility] ([facility])[address], [place] [address] VIRTransferrin [Mass/Vol]168 mg/[id number] [facility] HospitalComment on above:Performed By: #### FEPR ####[facility] ([facility])[address], [place] [address] VIR MAGNESIUMon [id number] [Mass/Vol]2.1 mg/dLNormal1.8-2.6[facility] HospitalComment on above:Performed By: #### MG ####[facility] ([facility])[address], [place] [address] VIRPROTIME AND INRon [id number] Childers HospitalComment on above:Performed By: #### PINR ####[facility] ([facility])[address], [place] [address] VIRPT Coag (PPP) [Time]11.1 sNormal9.8-13.2ProMedica Childers HospitalComment on above:Performed By: #### PINR ####[facility] [facility] ([facility])[address], [place] [address] VIRVITAMIN B12on 99-29-3367Aywubdsys (Vitamin B12) [Mass/Vol]1015 pg/rHAroh999-585EelPywtij [facility]field Medical CenterComment on above:Performed By: #### B12 ####[facility] ([facility])[address] [address] VIRXR FEMUR LT 2+ VIEWSon 47-27-4609RI FEMUR LT 2+ VIEWSNormalProSt. John Of God HospitalXR FEMUR RT 2+ VIEWSon 05-22-6661VC FEMUR RT 2+ VIEWSNormalProOur Lady Of Mercy Hospitalca [facility] CenterXR FEMUR RT 2+ VIEWSNormMedina Hospital36on [id number] see message below. Pt's daughter called asking if you go to [facility], as pt was transferred there last night and had MRI this morning and needs shunt checked. I told pt's daughter that I will notify you of this.NormalMercy Health St. Elizabeth Youngstown HospitalAPTTon 83-71-6156xZNQ Coag (Bld) [Time]26 rTwgzhh50-98 [facility]on HospitalComment on above:Performed By: #### PTT ####[facility] ([facility])[address] [address] VIR BEDSIDE GLUCOSEon 55-51-1550Ovgeefe [Mass/Vol]319 mg/dVGvxj61-74CgdUhzlwe [place] HospitalComment on above:Performed By: #### BEDG ####[facility] ([facility])[address] [place] [address] VIRGlucose [Mass/Vol]214 mg/aVAmoi54-91 [facility] HospitalComment on above:Performed By: #### BEDG ####[facility] ([facility])[address], [id number] VIRCBC WITH AUTO DIFFERENTIALon 71-87-0245KLUMUIPIR ABSOLUTE COUNT (10*3/UL) BY AUTOMATED COUNT0.1 10*3/uLNormal0.0-0.2ProMedica Highland Springs Surgical CenterComment on above: Performed By: #### CBCA ####[facility] ([address], [id number] VIRBASOPHILS RELATIVE PERCENT BY AUTOMATED COUNT0.7 % NormalMercy Health Allen HospitalComment on above:Performed By: #### CBCA ####[facility] ([address], [id number] VIRCELLAVISION DIFFERENTIAL TYPEAUTOMATED DIFFERENTIALNormalProWhite Rock Medical CenterComment on above:Performed By: #### CBCA ####[facility] ([address], [id number] VIREosinophils (Bld) [#/Vol] 0.4 10*3/uLNormal0.0-0.4Mercy Health Allen HospitalComment on above:Performed By: #### CBCA ####[facility] ([address], [id number] VIREOSINOPHILS RELATIVE PERCENT BY AUTOMATED COUNT5.3 % NormalMercy Health Allen HospitalComment on above:Performed By: #### CBCA ####[facility] ([address], [id number] VIRErythrocyte distribution width (RBC) [Ratio]17.9 %High11.5-15ProWhite Rock Medical CenterComment on above:Performed By: #### CBCA ####[facility] ([address], [id number] VIRHematocrit (Bld) [Volume fraction]27.2 %Yps98-75HdkWymnxbWhite Rock Medical CenterComment on above: Performed By: #### CBCA ####[facility] ([address], [id number] VIRHemoglobin (Bld) [Mass/Vol]9.0 g/dLLow11.7-15.5 [facility] Allen HospitalComment on above:Performed By: #### CBCA ####[facility] ([facility])[address] [place] [address].[place], [id number] VIR LYMPHOCYTES ABSOLUTE COUNT (10*3/UL) BY AUTOMATED COUNT2.5 10*3/uLNormal1.0-3.5 [facility] Allen HospitalComment on above:Performed By: #### CBCA ####[facility] ([facility])[address] [place] [address].[place], [id number] VIR LYMPHOCYTES RELATIVE PERCENT BY AUTOMATED COUNT33.4 %NormalProWhite Rock Medical CenterComment on above:Performed By: #### CBCA ####[facility] ([address], [id number] VIRMCH (RBC) [Entitic mass] 26.7 ujXtv84-49VryTutjmpWhite Rock Medical CenterComment on above:Performed By: #### CBCA ####[facility] ([address] [place] [address] VIRMCHC (RBC) [Mass/Vol]33.0 g/pVOaqhbp45-26VzxTfllvvMercy Health Allen Hospital Comment on above:Performed By: #### CBCA ####[facility] ([address], [id number] VIRMCV (RBC) [Entitic vol]81 fLNormal 80-100Mer[facility] Allen HospitalComment on above:Performed By: #### CBCA ####[facility] ([address], [id number] VIRMONOCYTES ABSOLUTE COUNT (10*3/UL) BY AUTOMATED COUNT1.0 10*3/uLHigh0.0-0.9 [facility] HospitalComment on above:Performed By: #### CBCA ####[facility] ([facility])[address] [place] [address], [id number] VIRMONOCYTES RELATIVE PERCENT BY AUTOMATED COUNT13.1 %NormalProWhite Rock Medical CenterComment on above:Performed By: #### CBCA ####[facility] ([facility])[address] [place], [place] [address], [id number] VIRNEUTROPHILS ABSOLUTE COUNT BY AUTOMATED COUNT3.6 10*3/uLNormal1.5-6.6ProWhite Rock Medical CenterComment on above:Performed By: #### CBCA ####[facility] ([facility])[address] [place], [place] [address], [id number] VIRNEUTROPHILS RELATIVE PERCENT BY AUTOMATED COUNT47.5 %NormalMercy Health Allen HospitalComment on above:Performed By: #### CBCA ####[facility] ([address] [place] [address] VIRPlatelet mean volume (Bld) [Entitic vol]8.2 fLNormal7-12PTriHealth Bethesda Butler HospitalComment on above:Performed By: #### CBCA ####[facility] ([address], [id number] VIRPlatelets (Bld) [#/Vol]230 10*3/yYFqloen022-870RhrPgbuus Fremont HospitalComment on above: Performed By: #### CBCA ####[facility] ([facility])[address] [place] [address] AVE.[place], [id number] VIRRBC COUNT3.36 X10E12/LLow3.8-5.2PUCHealth [facility] Hospital HospitalComment on above:Performed By: #### CBCA ####[facility] ([address], [id number] VIRWBC (Bld) [#/Vol]7.6 10*3/uLNormal4-11ProWhite Rock Medical CenterComment on above:Performed By: #### CBCA ####[address] [place] [address] VIRCOMPREHENSIVE METABOLIC PANELon 97-38-9094Jeesvsm [Mass/Vol]3.1 g/dLLow 3.2-5.3PTriHealth Bethesda Butler HospitalComment on above:Performed By: #### CMP ####[facility] ([address], [place] [address] VIRALP [Catalytic activity/Vol]121 U/KNbwhsh51-596LxvCnmzacWhite Rock Medical CenterComment on above:Performed By: #### CMP ####[address] [place] [address] VIRALT [Catalytic activity/Vol]15 U/LNormal<=31PTriHealth Bethesda Butler HospitalComment on above: Performed By: #### CMP ####[address] [place] [address] VIRAnion gap [Moles/Vol]10 mmol/LNormal5-15ProWhite Rock Medical CenterComment on above:Performed By: #### CMP ####[address] [place] [address] VIRAST [Catalytic activity/Vol]29 U/LNormal<=41ProWhite Rock Medical CenterComment on above: Performed By: #### CMP ####[address] [place] [address] VIRBilirubin [Mass/Vol]0.6 mg/dLNormal0.3-1.2 [facility] HospitalComment on above:Performed By: #### CMP ####[address] [place] [address] VIRCalcium [Mass/Vol]8.9 mg/dLNormal8.5-10.5PTriHealth Bethesda Butler HospitalComment on above: Performed By: #### CMP ####[place] [address] [place] [address] VIRChloride [Moles/Vol]94 mmol/MUlf20-239TqeMaidklWhite Rock Medical CenterComment on above:Performed By: #### CMP ####[facility] ([address] [place] [address] VIRCO2 [Moles/Vol]30 mmol/LMzeynj37-72RwwDemptf [facility] Surgical CenterComment on above:Performed By: #### CMP ####[facility] ([address] [address] VIRCreatinine [Mass/Vol]1.75 mg/dLHigh0.40-1.00[facility] Comment on above:Result Comment: METHOD TRACEABLE TO IDMS STANDARDPerformed By: #### CMP ####[facility] ([address] [address] VIRGFR/1.73 sq M.predicted among non-blacks MDRD (S/P/Bld) [Vol rate/Area]29 mL/min/{1.73_m2}Low>=60ProWhite Rock Medical CenterComment on above:Result Comment: eGFR not reported due to non-numeric value for Creatinine.Reported eGFR is based ontheCKD-EPI 2021 equation that doesnot use a race coefficient.Performed By: #### CMP ####[facility] ([address] [place] [address] VIRGlucose [Mass/Vol]139 mg/dLHigh 65-99ProWhite Rock Medical CenterComment on above:Performed By: #### CMP ####[facility] ([address] [address] VIRPotassium [Moles/Vol]4.2 mmol/LNormal3.5-5.0[facility] Comment on above:Performed By: #### CMP ####[facility] ([address] [address] VIRProtein [Mass/Vol]6.8 g/dLNormal 6.0-8.0Mer[facility] HospitalComment on above:Performed By: #### CMP ####[facility] ([facility])[address] [place] [address].[place], [place] [address] VIRSodium [Moles/Vol]134 mmol/DZitaad353-474SajNyereqMercy Health Allen Hospital Comment on above:Performed By: #### CMP ####[facility] ([facility])[address] [place] [address].[place] [address] VIRUrea nitrogen [Mass/Vol]27 mg/dL Normal5-27Mer[facility] HospitalComment on above:Performed By: #### CMP ####[facility] ([address] [address] VIRMAGNESIUMon 65-15-8270Rxlxgufkb [Mass/Vol]2.1 mg/dLNormal1.8-2.6 [facility] HospitalComment on above:Performed By: #### MG ####[facility] ([address] [address] VIRMR PELVIS W WO CONTon 48-96-2071MG PELVIS W WO CONTNormalMercy Health Allen Hospital PROTIME AND INRon 24-77-0212GGD4.4Ihnldw6.9-1.2PProtestant HospitalComment on above:Performed By: #### PINR ####[facility] ([facility])[address], [place] [address] VIRPT Coag (PPP) [Time]11.2 s Normal9.8-13.2PProtestant HospitalComment on above:Performed By: #### PINR ####[facility] ([facility])[address], [place] [address] VIRTYPE AND SCREENon 77-65-1756OXE_EHJCKUBcnzddFwxVstsuj [place] [facility] Comment on above:Performed By: #### TSC ####[facility] ([facility])[address] [place] [address] VIRRH_INTEPNegativeNoSumma HealthComment on above:Performed By: #### TSC ####[facility] ([facility])[address] [facility] [address] VIRXR CHEST 1 VWon 07-12-2025 XR CHEST 1 VWNormalCleveland Clinic Avon HospitalXR FEMUR RT 2+ VIEWSon 87-83-0163PQ FEMUR RT 2+ VIEWSNormalCleveland Clinic Avon HospitalXR HIP RT 2-3 VIEWS W OR WO PELVISon 25-75-1671YD HIP RT 2-3 VIEWS W OR WO PELVISNormMedina HospitalXR SKULL 1-3 VWS PARTIALon 29-21-9315IG SKULL 1-3 VWS PARTIALNormal [facility]36on [id number], RN from [facility] in [place] called asking if pt's shunt is MRI compatible. Noe was notified that it is MRI compatible but will need to have her shunt checked after the MRI. I asked [facility] if they have someone in house to do so. Noe stated that they did not and are thinking of transferring pt to either [facility] or [facility]. I had advised [facility] to make sure that [facility] has someone to check shunt. Noe verbalized understanding.NormalUnWadsworth-Rittman HospitalBEDSIDE GLUCOSEon 78-90-1192Djkzvhq [Mass/Vol]184 mg/dL Ehbx53-84HtmKovdbe[address] [place], [place] [address]Comment on above:Performed By: #### BEDG ####[facility] ([facility])[address] [place] [address] [place], [place] VIRGlucose [Mass/Vol]306 mg/oFAgcc55-38TmjRpwuip10 Hamilton StreetComment on above:Performed By: #### BEDG ####[facility] ([facility])[address] [place] [address] [place], [place] VIRGlucose [Mass/Vol]255 mg/fPAorj04-69DnlDxafjzWhite Rock Medical CenterComment on above:Performed By: #### BEDG ####[facility] ([address], [id number] VIRCBC WITH AUTO DIFFERENTIALon 94-32-0481DWQYCNFTD ABSOLUTE COUNT (10*3/UL) BY AUTOMATED COUNT 0.0 10*3/uLNormal0.0-0.2ProMedAlameda HospitalComment on above:Performed By: #### CBCA ####[facility] ([address], [id number] VIRBASOPHILS RELATIVE PERCENT BY AUTOMATED COUNT0.5 %Normal [facility] HospitalComment on above:Performed By: #### CBCA ####[address], [id number] VIR CELLAVISION DIFFERENTIAL TYPEAUTOMATED DIFFERENTIALNormalProWhite Rock Medical CenterComment on above:Performed By: #### CBCA ####[facility] ([address], [id number] VIREosinophils (Bld) [#/Vol] 0.3 10*3/uLNormal0.0-0.4Mer[facility] HospitalComment on above:Performed By: #### CBCA ####[facility] ([address], [id number] VIREOSINOPHILS RELATIVE PERCENT BY AUTOMATED COUNT3.6 % NormalProWhite Rock Medical CenterComment on above:Performed By: #### CBCA ####[address], [id number] VIRErythrocyte distribution width (RBC) [Ratio]18.3 %High11.5-15ProWhite Rock Medical CenterComment on above:Performed By: #### CBCA ####[facility] ([address], [id number] VIRHematocrit (Bld) [Volume fraction]28.7 %Fzz28-04WqjAtisboWhite Rock Medical CenterComment on above: Performed By: #### CBCA ####[facility] ([address] [id number] VIRHemoglobin (Bld) [Mass/Vol]9.5 g/dLLow11.7-15.5 [facility] HospitalComment on above:Performed By: #### CBCA ####[facility] ([address], [id number] VIR LYMPHOCYTES ABSOLUTE COUNT (10*3/UL) BY AUTOMATED COUNT2.3 10*3/uLNormal1.0-3.5 [facility] HospitalComment on above:Performed By: #### CBCA ####[facility] ([address], [id number] VIR LYMPHOCYTES RELATIVE PERCENT BY AUTOMATED COUNT27.6 %NormalProWhite Rock Medical CenterComment on above:Performed By: #### CBCA ####[facility] ([address], [id number] VIRMCH (RBC) [Entitic mass] 26.7 zvWyr29-37ZwiSkdsplMercy Health Allen HospitalComment on above:Performed By: #### CBCA ####[facility] ([address] [place] [address] VIRMCHC (RBC) [Mass/Vol]33.0 g/hJKlaqkc20-28LntZmjskyMercy Health Allen Hospital Comment on above:Performed By: #### CBCA ####[facility] ([address] [id number] VIRMCV (RBC) [Entitic vol]81 fLNormal 80-100ProWhite Rock Medical CenterComment on above:Performed By: #### CBCA ####[facility] ([facility])[address] [place] [address] [place], [id number] VIRMONOCYTES ABSOLUTE COUNT (10*3/UL) BY AUTOMATED COUNT1.0 10*3/uLHigh0.0-0.9 [facility] HospitalCompromedica charles and virgin[facility] on above:Performed By: #### CBCA ####[facility] ([address], [id number] VIRMONOCYTES RELATIVE PERCENT BY AUTOMATED COUNT11.7 %NormalMercy Health Allen HospitalComment on above:Performed By: #### CBCA ####[facility] ([address], [id number] VIRNEUTROPHILS ABSOLUTE COUNT BY AUTOMATED COUNT4.7 10*3/uLNormal1.5-6.6Mer[facility] Health Allen HospitalComment on above:Performed By: #### CBCA ####[facility] ([address], [id number] VIRNEUTROPHILS RELATIVE PERCENT BY AUTOMATED COUNT56.6 %Madison HealthComment on above:Performed By: #### CBCA ####[facility] ([address] [place] [address] VIRPlatelet mean volume (Bld) [Entitic vol]8.6 fLNormal7-12PTriHealth Bethesda Butler HospitalComment on above:Performed By: #### CBCA ####[facility] ([address], [id number] VIRPlatelets (Bld) [#/Vol]241 10*3/rQVrhjtc394-694RuxAccmun Fremont HospitalComment on above: Performed By: #### CBCA ####[facility] ([address], [id number] VIRRBC COUNT3.54 X10E12/LLow3.8-5.2PTriHealth Bethesda Butler HospitalComment on above:Performed By: #### CBCA ####[facility] ([facility] [address], [id number] VIRWBC (Bld) [#/Vol]8.3 10*3/uLNormal4-11[facility] HospitalComment on above:Performed By: #### CBCA ####[facility] ([facility] [place] [address] VIRCOMPREHENSIVE METABOLIC PANELon 61-72-5235Wtyjdhu [Mass/Vol]3.2 g/dL Normal3.2-5.3PTriHealth Bethesda Butler HospitalComment on above:Performed By: #### CMP ####[facility] ([facility] [address] [place] [address] VIRALP [Catalytic activity/Vol]118 U/WPiybjc03-456EhyInyavnWhite Rock Medical CenterComment on above:Performed By: #### CMP ####[facility] ([address] [place] [address] VIRALT [Catalytic activity/Vol]15 U/LNormal<=31PTriHealth Bethesda Butler HospitalComment on above: Performed By: #### CMP ####[facility] ([facility] [place] [address] VIRAnion gap [Moles/Vol]11 mmol/LNormal5-15ProWhite Rock Medical CenterComment on above:Performed By: #### CMP ####[facility] ([facility] [place] [address] VIRAST [Catalytic activity/Vol]37 U/LNormal<=41ProWhite Rock Medical CenterComment on above: Performed By: #### CMP ####[facility] ([facility] [place] [address] VIRBilirubin [Mass/Vol]0.6 mg/dLNormal0.3-1.2 [facility] HospitalComment on above:Performed By: #### CMP ####[facility] ([address] [place] [address] VIRCalcium [Mass/Vol]9.1 mg/dLNormal8.5-10.5PTriHealth Bethesda Butler HospitalComment on above: Performed By: #### CMP ####[facility] ([address] [place] [address] VIRChloride [Moles/Vol]94 mmol/NNge93-589BrbSxtclfWhite Rock Medical CenterComment on above:Performed By: #### CMP ####[facility] ([address] [address] VIRCO2 [Moles/Vol]31 mmol/OVjhalj04-16VacYlqfiwTriHealth Bethesda Butler HospitalComment on above:Performed By: #### CMP ####[facility] ([address] [address] VIRCreatinine [Mass/Vol]1.56 mg/dLHigh0.40-1.00[facility] Comment on above:Result Comment: METHOD TRACEABLE TO IDMS STANDARDPerformed By: #### CMP ####[facility] ([address] [address] VIRGFR/1.73 sq M.predicted among non-blacks MDRD (S/P/Bld) [Vol rate/Area]34 mL/min/{1.73_m2}Low>=60ProWhite Rock Medical CenterComment on above:Result Comment: eGFR not reported due to non-numeric value for Creatinine.Reported eGFR is based ontheCKD-EPI 1 equation that doesnot use a race coefficient.Performed By: #### CMP ####[facility] ([address] [address] VIRGlucose [Mass/Vol]120 mg/dLHigh 65-99ProWhite Rock Medical CenterComment on above:Performed By: #### CMP ####[facility] ([facility])[address] [place] [address] AV.[place], [place] [address] VIRPotassium [Moles/Vol]3.7 mmol/LNormal3.5-5.0[facility] Comment on above:Performed By: #### CMP ####[facility] ([address] [place] [address] VIRProtein [Mass/Vol]7.0 g/dLNormal 6.0-8.0[facility] HospitalComment on above:Performed By: #### CMP ####[facility] ([address], [place] [address] VIRSodium [Moles/Vol]136 mmol/BEtsvcr861-186DraKfkbvg [facility] Comment on above:Performed By: #### CMP ####[facility] ([address] [place] [address] VIRUrea nitrogen [Mass/Vol]28 mg/dL High-ProWhite Rock Medical CenterComment on above:Performed By: #### CMP ####[facility] ([address], [place] [address] VIRMAGNESIUMon [id number] [Mass/Vol]2.1 mg/dLNormal1.8-2.6 [facility] HospitalComment on above:Performed By: #### MG ####[facility] ([facility])[address] [place] [address].[place] [address] VIRTelephone on [id number] Cuca Dee 1945 F Date Provider Department Center 07/11/2025 STEFFI BROWN [facility] SURG Second Fl Family History Problem Relation Age of Onset Diabetes Mother Hypertension Father Coronary artery disease Father Family Status - Relation Status Age at Mother FatherNormalUniversity [facility] GLUCOSEon 07-10-2025 Glucose [Mass/Vol]259 mg/fWUvjd48-14VrtUrnlwdMercy Health Allen HospitalComment on above: Performed By: #### BEDG ####[facility] ([place] [address], [id number] VIRGlucose [Mass/Vol]217 mg/jEUguh90-82GvyVhkfpuWhite Rock Medical CenterComment on above:Performed By: #### BEDG ####[facility] ([place] [address], [id number] VIRCOMPREHENSIVE METABOLIC PANELon [id number] [Mass/Vol]3.5 g/dLNormal3.2-5.3PTriHealth Bet[facility]da Butler HospitalComment on above:Performed By: #### CMP ####[facility] ([address] [place] [address] VIRALP [Catalytic activity/Vol]127 U/KEqghbj10-996ZssMccgukWhite Rock Medical CenterComment on above: Performed By: #### CMP ####[facility] ([place] [address] [place] [address] VIRALT [Catalytic activity/Vol]17 U/LNormal<=31 [facility] HospitalComment on above:Performed By: #### CMP ####[facility] ([address] [place] [address] VIRAnion gap [Moles/Vol]11 mmol/LNormal5-15Mer[facility] Allen HospitalComment on above: Performed By: #### CMP ####[facility] ([place] [address] [place] [address] VIRAST [Catalytic activity/Vol]33 U/LNormal<=41 [facility] HospitalComment on above:Performed By: #### CMP ####[facility] ([place] [address] [place] [address] VIRBilirubin [Mass/Vol]0.5 mg/dLNormal0.3-1.2PTriHealth Bet[facility]da Butler HospitalComment on above: Performed By: #### CMP ####[facility] ([address] [place] [address] VIRCalcium [Mass/Vol]9.3 mg/dLNormal8.5-10.5PTriHealth [facility] Butler HospitalComment on above:Performed By: #### CMP ####[address] [address] VIRChloride [Moles/Vol]94 mmol/XLxk04-295ZkrHueyojWhite Rock Medical CenterComment on above: Performed By: #### CMP ####[address] [address] VIRCO2 [Moles/Vol]30 mmol/EThgeni69-63JqmEihkubTriHealth Bethesda Butler HospitalComment on above:Performed By: #### CMP ####[address] [address] VIRCreatinine [Mass/Vol]1.54 mg/dLHigh0.40-1.00ProWhite Rock Medical CenterCompromedica charles and virginia [facility] hospital on above: Result Comment: METHOD TRACEABLE TO IDMS STANDARDPerformed By: #### CMP ####[address] [address] VIRGFR/1.73 sq M.predicted among non-blacks MDRD (S/P/Bld) [Vol rate/Area] 34 mL/min/{1.73_m2}Low>=60ProWhite Rock Medical CenterComment on above:Result Comment: eGFR not reported due to non-numeric value for Creatinine.Reported eGFR is based ontheCKD-EPI 2020 equation that doesnot use a race coefficient. Performed By: #### CMP ####[facility] ([address] [address] VIRGlucose [Mass/Vol]229 mg/bMPfxs34-11FsmFnzbxtWhite Rock Medical CenterComment on above:Performed By: #### CMP ####[facility] ([address] [address] VIRPotassium [Moles/Vol]4.1 mmol/LNormal3.5-5.0ProWhite Rock Medical CenterComment on above: Performed By: #### CMP ####[facility] ([address] [address] VIRProtein [Mass/Vol]7.6 g/dLNormal6.0-8.0ProWhite Rock Medical CenterComment on above:Performed By: #### CMP ####[facility] ([address] [address] VIRSodium [Moles/Vol]135 mmol/EMithau912-445WsaYilzfy [facility]remont HospitalComment on above: Performed By: #### CMP ####[facility] ([address] [address] VIRUrea nitrogen [Mass/Vol]30 mg/dLHigh5-27ProWhite Rock Medical CenterComment on above:Performed By: #### CMP ####[facility] ([address] [address] VIRXR Hip - right 3 Viewson 43-95-3290Xmlehbr Result: AP Pelvis and right hip: Osteopenia [...] and cystic changes adjacent concerning for pathologic fracture.[facility] HealthcareRadiology Study observation (narrative)[facility] HealthcareBEDSIDE GLUCOSE on 43-84-7478Bnegwfu [Mass/Vol]237 mg/pCZdho02-71HvrBbtjrcRiverside Methodist HospitalComment on above:Performed By: #### CBCA #### [facility] ([facility]) [address] [place] [address] VIRGlucose [Mass/Vol]238 mg/nLUaxs41-83MvxJqningBarnesville HospitalComment on above:Performed By: #### CBCA #### [facility] ([facility]) [address] [place], [place] [address] VIRGlucose [Mass/Vol]140 mg/qZYifg14-91SaoFpnpmxRiverside Methodist HospitalComment on above:Performed By: #### CBCA #### [facility] ([facility]) [address] [place] [address] VIRBedside Glucose *Place/Obtain serum glucose if >500 per glucometer.on 33-04-5544Ksbdevq [Mass/Vol]237 mg/dZRxqt85 - 99 mg/dLWright-Patterson Medical Center SystemInterpretation and review of laboratory resultsAbnormalDepartment of Veterans Affairs [facility] SystemGlucose [Mass/Vol]238 mg/eJUtwe23 - 99 mg/dL [facility] SystemInterpretation and review of laboratory resultsAbnormal Horsham ClinicGlucose [Mass/Vol]140 mg/eESnzj31 - 99 mg/dLWright-Patterson Medical Center SystemInterpretation and review of laboratory results AbnormalDepartment of Veterans Affairs [facility] SystemCBC WITH AUTO DIFFERENTIAL on 63-08-0118HBTKHDCIV ABSOLUTE COUNT (10*3/UL) BY AUTOMATED COUNT0.0 10*3/uL Normal0.0-0.2ProMedica [facility] Health Akron CampusComment on above:Performed By: #### CBCA #### [facility] ([facility]) [address] [place], [place] [address] VIRBASOPHILS RELATIVE PERCENT BY AUTOMATED COUNT0.6 %Normal [facility] HospitalComment on above:Performed By: #### CBCA #### [facility] ([facility]) [address] [place], [place] [address] VIRCELLAVISION DIFFERENTIAL TYPEAUTOMATED DIFFERENTIALNormal [facility] HospitalComment on above:Performed By: #### CBCA #### [facility] ([facility]) [address] [place] [address] VIREosinophils (Bld) [#/Vol]0.3 10*3/uLNormal0.0-0.4ProRiverside Methodist HospitalComment on above:Performed By: #### CBCA #### [facility] ([facility]) [address] [place], [place] [address] VIREOSINOPHILS RELATIVE PERCENT BY AUTOMATED COUNT3.8 %Normal ProMedicMercy Health St. Rita's Medical Center HospitalComment on above:Performed By: #### CBCA #### [facility] ([facility]) [address] [place], [place] [address] VIRErythrocyte distribution width (RBC) [Ratio]17.7 %High 11.5-15ProScci Hospital Lima HospitalComment on above:Performed By: #### CBCA #### [place] [address] VIRHematocrit (Bld) [Volume fraction]27.5 %Yaz35-11DwgTgwdquScci Hospital Lima HospitalComment on above:Performed By: #### CBCA #### [facility] ([facility]) [address] [place], [place] [address] VIRHemoglobin (Bld) [Mass/Vol]9.1 g/dLLow11.7-15.5PPremier Health Miami Valley Hospital HospitalComment on above:Performed By: #### CBCA #### [facility] ([facility]) [address] [place], [place] [address] VIRLYMPHOCYTES ABSOLUTE COUNT (10*3/UL) BY AUTOMATED COUNT1.4 10*3/uLNormal1.0-3.5PPremier Health Miami Valley Hospital HospitalComment on above: Performed By: #### CBCA #### [facility]) [address] [place], [place] [address] VIRLYMPHOCYTES RELATIVE PERCENT BY AUTOMATED COUNT19.9 % NormalProScci Hospital Lima HospitalComment on above:Performed By: #### CBCA #### [facility] ([facility]) [address] [place] [address] VIRMCH (RBC) [Entitic mass]27.1 yeZzivsb95-37XqoApolakScci Hospital Lima HospitalComment on above:Performed By: #### CBCA #### [facility] ([facility]) [address] [place] [address] VIRMCHC (RBC) [Mass/Vol]33.3 g/xBOagsii44-71QkaLvvdqhScci Hospital Lima HospitalComment on above:Performed By: #### CBCA #### [facility]) [address] [place] [address] VIRMCV (RBC) [Entitic vol]81 eLXxsjjf09-752OikVobkpiScci Hospital Lima HospitalComment on above:Performed By: #### CBCA #### [facility]) [address] [place] [address] VIRMONOCYTES ABSOLUTE COUNT (10*3/UL) BY AUTOMATED COUNT0.9 10*3/uLNormal0.0-0.9ProRiverside Methodist HospitalComment on above: Performed By: #### CBCA #### [facility]) [address] [place] [address] VIRMONOCYTES RELATIVE PERCENT BY AUTOMATED COUNT12.3 %Normal ProMedicMercy Health St. Rita's Medical CenterComment on above:Performed By: #### CBCA #### [facility]) [address] [place] [address] VIRNEUTROPHILS ABSOLUTE COUNT BY AUTOMATED COUNT4.4 10*3/uL Normal1.5-6.6ProRiverside Methodist HospitalComment on above:Performed By: #### CBCA #### [facility]) [address] [place] [address] VIRNEUTROPHILS RELATIVE PERCENT BY AUTOMATED COUNT63.4 % NormalProRiverside Methodist HospitalComment on above:Performed By: #### CBCA #### [facility]) [address] [place] [address] VIRPlatelet mean volume (Bld) [Entitic vol]8.3 fLNormal7-[address] [facility] [address] [facility] HospitalComment on above:Performed By: #### CBCA #### [facility] ([facility]) [address] [place] [address] VIRPlatelets (Bld) [#/Vol]253 10*3/nLVybyst167-582FauVtrsntScci Hospital Lima HospitalComment on above:Performed By: #### CBCA #### [facility] ([facility]) [address] [place] [address] VIRRBC COUNT3.37 X10E12/LLow3.8-5.2ProMedica [facility]ron CampusComment on above:Performed By: #### CBCA #### [facility] ([facility]) [address] [place] [address] VIRWBC (Bld) [#/Vol]7.0 10*3/uLNormal4-11ProScci Hospital Lima HospitalComment on above:Performed By: #### CBCA #### [facility] ([facility]) [address] [place] [address] VIRCBC auto differentialon 35-37-6434Nrbjebohh (Bld) [#/Vol]0 10*3/uL0.0 - 0.2 10*3/uLProMedica Health SystemBasophils/100 WBC (Bld)0.6 % ProMedicMercy Health St. Charles HospitalDifferential cell count method Nom (Bld)AUTOMATED DIFFERENTIALWright-Patterson Medical Center SystemEosinophils (Bld) [#/Vol]0.3 10*3/uL0.0 - 0.4 10*3/uLProMedica Health SystemEosinophils/100 WBC (Bld)3.8 %ProMedica Health SystemErythrocyte distribution width (RBC) [Ratio]17.7 %High11.5 - 15 %ProMedica Health SystemHematocrit (Bld) [Volume fraction]27.5 %Low35 - 47 %ProMedica Health SystemHemoglobin (Bld) [Mass/Vol]9.1 g/dLLow11.7 - 15.5 g/dLSumma Health Akron CampusInterpretation and review of laboratory resultsAbnormalSumma Health Akron CampusLymphocytes (Bld) [#/Vol]1.4 10*3/uL1.0 - 3.5 10*3/uLSumma Health Akron CampusLymphocytes/100 WBC (Bld)19.9 %[facility] HospitalH (RBC) [Entitic mass]27.1 pg27 - 34 [facility] HospitalMCHC (RBC) [Mass/Vol]33.3 g/dL32 - 36 g/dLSumma Health Akron CampusMCV (RBC) [Entitic vol]81 fL80 - 100 fL [facility] CampusMonocytes (Bld) [#/Vol]0.9 10*3/uL0.0 - 0.9 10*3/uL [facility] CampusMonocytes/100 WBC (Bld)12.3 %[facility] Neutrophils (Bld) [#/Vol]4.4 10*3/uL1.5 - 6.6 10*3/[facility] Neutrophils/100 WBC (Bld)63.4 %[facility] CampusPlatelet mean volume (Bld) [Entitic vol]8.3 fL7 - 12 [facility] HospitalPlatelets (Bld) [#/Vol]253 10*3/uLSumma Health Akron CampusRBC (Bld) [#/Vol]3.37 10*6/uLLowSumma Health Akron CampusWBC LM Ql (Sput)7[facility] COMPREHENSIVE METABOLIC PANELon 76-91-1590Zsdntys [Mass/Vol]3.0 g/dLLow3.2-5.3 [facility] HospitalComment on above:Performed By: #### CBCA #### [facility] ([facility]) [address] [place] [address] VIRALP [Catalytic activity/Vol]116 U/OSwuuvw12-293IqlYjocvgRiverside Methodist HospitalComment on above:Performed By: #### CBCA #### [facility] ([facility]) [address] [place] [address] VIRALT [Catalytic activity/Vol]16 U/LNormal<=31PPremier Health Miami Valley Hospital HospitalComment on above:Performed By: #### CBCA #### [facility]) [address] [place] [address] VIRAnion gap [Moles/Vol]8 mmol/LNormal5-15ProScci Hospital [facility] HospitalComment on above:Performed By: #### CBCA #### [facility] ([facility]) [address] [place] [address] VIRAST [Catalytic activity/Vol]23 U/LNormal<=41ProScci Hospital [place] HospitalComment on above:Performed By: #### CBCA #### [facility] ([facility]) [address] [place] [address] VIRBilirubin [Mass/Vol]0.7 mg/dLNormal0.3-1.2ProMedParkview Health Bryan Hospital HospitalComment on above:Performed By: #### CBCA #### [facility] ([facility]) [address] [place] [address] VIRCalcium [Mass/Vol]9.1 mg/dLNormal8.5-10.5ProMedParkview Health Bryan Hospital HospitalComment on above:Performed By: #### CBCA #### [facility]) [address] [place] [address] VIRChloride [Moles/Vol]100 mmol/TJapzqb81-843OeeArikklScci Hospital Lima HospitalComment on above:Performed By: #### CBCA #### [facility] ([facility]) [address] [place] [address] VIRCO2 [Moles/Vol]27 mmol/ZDozojd01-05IeoKxzidlParkview Health Bryan Hospital HospitalComment on above:Performed By: #### CBCA #### [facility]) [address] [place] [address] VIRCreatinine [Mass/Vol]1.30 mg/dLHigh0.40-1.00ProScci Hospital [place] HospitalComment on above:Result Comment: METHOD TRACEABLE TO IDMS STANDARDPerformed By: #### CBCA #### [facility]) [address] [place] [address] VIRGFR/1.73 sq M.predicted among non-blacks MDRD (S/P/Bld) [Vol rate/Area]42 mL/min/{1.73_m2}Low>=60ProRiverside Methodist Hospital Comment on above:Result Comment: eGFR not reported due to non-numeric value for Creatinine. Reported eGFR is based on the CKD-EPI 2020 equation that does not use a race coefficient.Performed By: #### CBCA #### [facility]) [address] [place] [address] VIRGlucose [Mass/Vol]157 mg/iAPwsc67-40QahSvzkwlRiverside Methodist HospitalComment on above:Performed By: #### CBCA #### [address] [address] VIRPotassium [Moles/Vol]3.7 mmol/LNormal3.5-5.0ProRiverside Methodist HospitalComment on above:Performed By: #### CBCA #### [address] [address] VIRProtein [Mass/Vol]6.8 g/dLNormal6.0-8.0ProRiverside Methodist HospitalComment on above:Performed By: #### CBCA #### [address] [address] VIRSodium [Moles/Vol]135 mmol/HSdveng579-796IxrBdcrarRiverside Methodist HospitalComment on above:Performed By: #### CBCA #### [facility]) [address] [place] [address] VIRUrea nitrogen [Mass/Vol]16 mg/dLNormal5-27ProRiverside Methodist HospitalComment on above:Performed By: #### CBCA #### [address] [address] VIRComprehensive metabolic panelon 39-38-3156Saxnrwk [Mass/Vol]3 g/dLLow3.2 - 5.3 g/dLProDale Medical Center Health SystemALP [Catalytic activity/Vol]116 U/L39 - 130 U/LPrWeisbrod Memorial County Hospital Health SystemALT No additional P-5'-P [Catalytic activity/Vol]16 U/LNINF - 31 U/LPrWeisbrod Memorial County Hospital Health SystemAnion gap [Moles/Vol]8 mmol/L5 - 15 mmol/LPrCenterPointe Hospitalica Health SystemAST [Catalytic activity/Vol]23 U/LNINF - 41 U/[facility] SystemBilirubin [Mass/Vol]0.7 mg/dL0.3 - 1.2 mg/dLProMercy Health Fairfield Hospital SystemCalcium [Mass/Vol]9.1 mg/dL8.5 - 10.5 mg/dLProMercy Health Fairfield Hospital SystemChloride [Moles/Vol]100 mmol/L98 - 109 mmol/L [facility] CampusCO2 [Moles/Vol]27 mmol/L22 - 32 mmol/[facility] SystemCreatinine [Mass/Vol]1.3 mg/dLHigh0.40 - 1.00 mg/dLSumma Health Akron Campus Comment on above:METHOD TRACEABLE TO IDNM STANDARDEGFR Non-Race Ukwgbjjrn47Xff- PINKindred HospitalComment on above:eGFR not reported due to non-numeric value for Creatinine. Reported eGFR is based on the CKD-EPI 2020 equation that does not use a race coefficient. Glucose [Mass/Vol]157 mg/wTEymm55 - 99 mg/dLWright-Patterson Medical Center SystemPotassium [Moles/Vol]3.7 mmol/L3.5 - 5.0 mmol/[facility] SystemProtein [Mass/Vol] 6.8 g/dL6.0 - 8.0 g/dLWright-Patterson Medical Center SystemSodium [Moles/Vol]135 mmol/L134 - 146 mmol/[facility] SystemUrea nitrogen [Mass/Vol]16 mg/dL5 - 27 mg/dL [facility] CampusMAGNESIUMon 14-83-4542Sfcwtwrdg [Mass/Vol]1.7 mg/dLLow 1.8-2.6[facility] HospitalComment on above:Performed By: #### BEDG #### [facility] ([facility]) [address] [place] [address] VIRMagnesiumon 47-95-6742Fjlgauyso [Mass/Vol]1.7 mg/dLLow1.8 - 2.6 mg/dLSumma Health Akron CampusNo Panel Informationon 07-05-2025 Interpretation and review of laboratory resultsAbnormalEncompass Health Rehabilitation Hospital of HarmarvilleBEDSIDE GLUCOSEon 54-07-6625Nxherro [Mass/Vol]189 mg/dL Acbx65-05YyjMcrjprRiverside Methodist HospitalComment on above:Performed By: #### BEDG #### [facility] ([facility]) [address] [place] [address] VIRGlucose [Mass/Vol]371 mg/iXJfcq90-20RzcWahfpuRiverside Methodist HospitalComment on above:Performed By: #### BEDG #### [facility]) [address] [place] [address] VIRGlucose [Mass/Vol]254 mg/jODync24-36JinHpfwaaRiverside Methodist HospitalComment on above:Performed By: #### BEDG #### [facility] ([facility]) [address] [place] [address] VIRGlucose [Mass/Vol]144 mg/jDZnlz69-65SddXxwlso42 Bailey StreetComment on above:Performed By: #### BEDG #### [facility]) [address] [place] [address] VIRBedside Glucose *Place/Obtain serum glucose if >500 per glucometer.on 45-19-6168Amiwxen [Mass/Vol]189 mg/xXZehx70 - 99 mg/dLWright-Patterson Medical Center SystemInterpretation and review of laboratory resultsAbnormalWright-Patterson Medical Center SystemProMercy Health [facility] Hospital SystemGlucose [Mass/Vol]371 mg/cWRdai85 - 99 mg/dL ProMedicLakeview Hospital SystemInterpretation and review of laboratory resultsAbnormal [facility] SystemProMercy Health [facility] Hospital SystemGlucose [Mass/Vol]254 mg/dJJsys48 - 99 mg/dLProMercy Health Fairfield Hospital SystemInterpretation and review of laboratory results AbnormalProMagee Rehabilitation HospitalGlucose [Mass/Vol]144 mg/dRKoaz71 - 99 mg/dLSumma Health Akron CampusInterpretation and review of laboratory resultsAbnormalHorsham ClinicCB WITH AUTO DIFFERENTIALon 54-43-3516JPCYOKQZS ABSOLUTE COUNT (10*3/UL) BY AUTOMATED COUNT0.1 10*3/uLNormal0.0-0.2ProMedUniversity Hospitals TriPoint Medical CenterComment on above:Performed By: #### BEDG #### [facility] ([facility]) [address] [place] [address] VIRBASOPHILS RELATIVE PERCENT BY AUTOMATED COUNT0.8 %Normal [facility] HospitalComment on above:Performed By: #### BEDG #### [facility]) [address] [place] [address] VIRCELLAVISION DIFFERENTIAL TYPEAUTOMATED DIFFERENTIALNormal [facility] HospitalComment on above:Performed By: #### BEDG #### [facility]) [address] [place] [address] VIREosinophils (Bld) [#/Vol]0.2 10*3/uLNormal0.0-0.4[facility] HospitalComment on above:Performed By: #### BEDG #### [facility]) [address] [place] [address] VIREOSINOPHILS RELATIVE PERCENT BY AUTOMATED COUNT2.9 %Normal [facility] HospitalComment on above:Performed By: #### BEDG #### [facility]) [address] [place] [address] VIRErythrocyte distribution width (RBC) [Ratio]17.5 %High 11.5-15[facility] HospitalComment on above:Performed By: #### BEDG #### [facility]) [address] [place] [address] VIRHematocrit (Bld) [Volume fraction]30.4 %Pwi78-68GzoBwmuxrRiverside Methodist HospitalComment on above:Performed By: #### BEDG #### [place] [id number] VIRHemoglobin (Bld) [Mass/Vol]10.2 g/dLLow11.7-15.5PSouthern Ohio Medical CenterComment on above:Performed By: #### BEDG #### [place] [id number] VIRLYMPHOCYTES ABSOLUTE COUNT (10*3/UL) BY AUTOMATED COUNT1.6 10*3/uLNormal1.0-3.5PSouthern Ohio Medical CenterComment on above: Performed By: #### BEDG #### [place] [address] VIRLYMPHOCYTES RELATIVE PERCENT BY AUTOMATED COUNT24.2 % NormalProRiverside Methodist HospitalComment on above:Performed By: #### BEDG #### [facility]) [address] [place] [address] VIRMCH (RBC) [Entitic mass]27.1 kqXbtasg03-17XhaOnxgknRiverside Methodist HospitalComment on above:Performed By: #### BEDG #### [place] [id number] VIRMCHC (RBC) [Mass/Vol]33.5 g/qKCvtrzv86-08ZzaAtglsgScci Hospital Lima HospitalComment on above:Performed By: #### BEDG #### [facility]) [address] [place], [place] [address] VIRMCV (RBC) [Entitic vol]81 tTCcqewr43-616MajEqutrlRiverside Methodist HospitalComment on above:Performed By: #### BEDG #### [facility]) [address] [place], [place] [address] VIRMONOCYTES ABSOLUTE COUNT (10*3/UL) BY AUTOMATED COUNT0.8 10*3/uLNormal0.0-0.9Pro[facility] HospitalComment on above: Performed By: #### BEDG #### [facility] ([address] [address] VIRMONOCYTES RELATIVE PERCENT BY AUTOMATED COUNT12.8 %Normal ProMRiverview Health Institute HospitalComment on above:Performed By: #### BEDG #### [address] [address] VIRNEUTROPHILS ABSOLUTE COUNT BY AUTOMATED COUNT3.9 10*3/uL Normal1.5-6.6Pro[facility] HospitalComment on above:Performed By: #### BEDG #### [address] [address] VIRNEUTROPHILS RELATIVE PERCENT BY AUTOMATED COUNT59.3 % NormalProScci Hospital Lima HospitalComment on above:Performed By: #### BEDG #### [address] [address] VIRPlatelet mean volume (Bld) [Entitic vol]8.9 fLNormal7-[address] [facility]'s Medical [facility] HospitalComment on above:Performed By: #### BEDG #### [address] [address] VIRPlatelets (Bld) [#/Vol]304 10*3/dGIrpnxg038-789IviBvmkzz [facility] HospitalComment on above:Performed By: #### BEDG #### [facility]) [address] [place] [id number] VIRRBC COUNT3.75 X10E12/LLow3.8-5.2[facility] HospitalComment on above:Performed By: #### BEDG #### [address] [address] VIRWBC (Bld) [#/Vol]6.5 10*3/uLNormal4-11[facility] HospitalComment on above:Performed By: #### BEDG #### [facility] ([facility]) [address] [place] [id number] [facility] auto differentialon [id number] (Bld) [#/Vol] 0.1 10*3/uL0.0 - 0.2 10*3/uLSumma Health [facility] CampusBasophils/100 WBC (Bld)0.8 % [facility] CampusDifferential cell count method Nom (Bld)AUTOMATED DIFFERENTIALSumma Health Akron CampusEosinophils (Bld) [#/Vol]0.2 10*3/uL0.0 - 0.4 10*3/uLWright-Patterson Medical [facility] SystemEosinophils/100 WBC (Bld)2.9 %[facility] SystemErythrocyte distribution width (RBC) [Ratio]17.5 %High11.5 - 15 %[facility] CampusHematocrit (Bld) [Volume fraction]30.4 %Low35 - 47 %[facility] SystemHemoglobin (Bld) [Mass/Vol]10.2 g/dLLow11.7 - 15.5 g/dLWright-Patterson Medical Center SystemInterpretation and review of laboratory resultsAbnormalSumma Health Akron CampusLymphocytes (Bld) [#/Vol]1.6 10*3/uL1.0 - 3.5 10*3/uLSumma Health Akron CampusLymphocytes/100 WBC (Bld)24.2 %[facility] CampusMCH (RBC) [Entitic mass]27.1 pg27 - 34 pgPSelect Medical OhioHealth Rehabilitation HospitalMCHC (RBC) [Mass/Vol]33.5 g/dL32 - 36 g/dLSumma Health Akron CampusMCV (RBC) [Entitic vol]81 fL80 - 100 fL [facility] SystemMonocytes (Bld) [#/Vol]0.8 10*3/uL0.0 - 0.9 10*3/uL [facility] SystemMonocytes/100 WBC (Bld)12.8 %[facility] System Neutrophils (Bld) [#/Vol]3.9 10*3/uL1.5 - 6.6 10*3/uLWright-Patterson Medical Center System Neutrophils/100 WBC (Bld)59.3 %[facility] SystemPlatelet mean volume (Bld) [Entitic vol]8.9 fL7 - 12 fLPSelect Medical Specialty Hospital - Cincinnati SystemPlatelets (Bld) [#/Vol]304 10*3/[facility] SystemRBC (Bld) [#/Vol]3.75 10*6/[facility] Ford HospitalWBC LM Ql (Sput)6.5PWellSpan Health COMPREHENSIVE METABOLIC PANELon 28-70-4302Qgyldmk [Mass/Vol]3.4 g/dLNormal 3.2-5.3PPremier Health Miami Valley Hospital HospitalComment on above:Performed By: #### BEDG #### [facility] ([facility]) [address] [place] [address]003 VIRALP [Catalytic activity/Vol]130 U/IYriawm15-069YhjCtyqqzRiverside Methodist HospitalComment on above:Performed By: #### BEDG #### [facility] ([facility]) [address] [place] [address]64 VIRALT [Catalytic activity/Vol]16 U/LNormal<=31PSouthern Ohio Medical CenterComment on above:Performed By: #### BEDG #### [facility]) [address] [place] [address] VIRAnion gap [Moles/Vol]10 mmol/LNormal5-15ProRiverside Methodist HospitalComment on above:Performed By: #### BEDG #### [facility] ([address] [address] VIRAST [Catalytic activity/Vol]26 U/LNormal<=41ProRiverside Methodist HospitalComment on above:Performed By: #### BEDG #### [facility]) [address] [place] [address]70 VIRBilirubin [Mass/Vol]0.7 mg/dLNormal0.3-1.2PSouthern Ohio Medical CenterComment on above:Performed By: #### BEDG #### [facility] ([facility]) [address] [place] [address]1468 VIRCalcium [Mass/Vol]9.5 mg/dLNormal8.5-10.5ProMedica [facility] Health Akron CampusComment on above:Performed By: #### BEDG #### [facility]) [address] [place] [address]1992 VIRChloride [Moles/Vol]100 mmol/KMhapom99-851JvpRkwipcRiverside Methodist HospitalComment on above:Performed By: #### BEDG #### [address] [address] VIRCO2 [Moles/Vol]26 mmol/NYgdxdn72-13MpjJxelzyUniversity Hospitals TriPoint Medical CenterComment on above:Performed By: #### BEDG #### [facility]) [address] [place] [address]756 VIRCreatinine [Mass/Vol]1.27 mg/dLHigh0.40-1.00ProRiverside Methodist HospitalComment on above:Result Comment: METHOD TRACEABLE TO IDMS STANDARDPerformed By: #### BEDG #### [facility]) [address] [place] [address]6561 VIRGFR/1.73 sq M.predicted among non-blacks MDRD (S/P/Bld) [Vol rate/Area]43 mL/min/{1.73_m2}Low>=60[facility] Comment on above:Result Comment: eGFR not reported due to non-numeric value for Creatinine. Reported eGFR is based on the CKD-EPI 2021 equation that does not use a race coefficient.Performed By: #### BEDG #### [facility]) [address] [place] [address] VIRGlucose [Mass/Vol]121 mg/uXJjbl14-70XcvPnxpxoRiverside Methodist HospitalComment on above:Performed By: #### BEDG #### [facility]) [address] [place] [address] VIRPotassium [Moles/Vol]3.8 mmol/LNormal3.5-5.0ProRiverside Methodist HospitalComment on above:Performed By: #### BEDG #### [facility] ([facility]) [address] [place] [address]70 VIRProtein [Mass/Vol]7.4 g/dLNormal6.0-8.0ProRiverside Methodist HospitalComment on above:Performed By: #### BEDG #### [facility]) [address] [place] [address]32 VIRSodium [Moles/Vol]136 mmol/SKvdycw638-076IbwNlrgmyRiverside Methodist HospitalComment on above:Performed By: #### BEDG #### [address] [address] VIRUrea nitrogen [Mass/Vol]14 mg/dLNormal5-27ProRiverside Methodist HospitalComment on above:Performed By: #### BEDG #### [address] [address] VIRComprehensive metabolic panelon 01-59-7632Yhmbckm [Mass/Vol]3.4 g/dL3.2 - 5.3 g/dLProMedica Health SystemALP [...] TRACEABLE TO IDMS STANDARDEGFR Non-Race Dependent 43Low- PINFPSelect Medical OhioHealth Rehabilitation HospitalComment on above:eGFR not reported due to non- numeric value for Creatinine. Reported eGFR is based on the CKD-EPI 2020 equation that does not use a race coefficient. Glucose [Mass/Vol]121 mg/lWGcag85 - 99 mg/dLSumma Health [facility] Campus Interpretation and review of laboratory resultsAbnormalSumma Health [facility]ron Campus Potassium [Moles/Vol]3.8 mmol/L3.5 - 5.0 mmol/Pending sale to [facility] HealthoMedandalusia health Health SystemProtein [Mass/Vol]7.4 g/dL6.0 - 8.0 g/dLProUniversity Hospitals Geauga Medical Centerodium [Moles/Vol]136 mmol/L134 - 146 mmol/[facility] SystemUrea nitrogen [Mass/Vol]14 mg/dL5 - 27 mg/dLSumma Health Akron CampusMAGNESIUMon 59-72-1812Ojxkjonzt [Mass/Vol]1.9 mg/dLNormal1.8-2.6[facility] HospitalComment on above: Performed By: #### BEDG #### [facility]) [address] [place] [address] VIRMagnesiumon 02-21-5462Krmjosint [Mass/Vol]1.9 mg/dL1.8 - 2.6 mg/dLSumma Health Akron CampusNo Panel Informationon 59-75-3180Dqpaxxhogvbyot and review of laboratory resultsNormalSumma Health Akron CampusProSouthwest General Health CenterPHOSPHORUSon 45-17-6328Qebcsukny [Mass/Vol]3.2 mg/dLNormal2.4-4.9[facility] HospitalComment on above:Performed By: #### BEDG #### [facility]) [address] [place] [address] VIRPhosphoruson 58-01-7007Dkdpafrec [Mass/Vol]3.2 mg/dL2.4 - 4.9 mg/dLSumma Health Akron CampusBEDSIDE GLUCOSEon 57-31-7941Jjcfupe [Mass/Vol] 185 mg/sSTjxr51-44ZljYugmjkRiverside Methodist HospitalComment on above: Performed By: #### BEDG #### [facility] ([facility]) [address] [place] [address] VIRGlucose [Mass/Vol]125 mg/wURcae58-69JxiUvokocRiverside Methodist HospitalComment on above:Performed By: #### BEDG #### [facility] ([facility]) [address] [place] [address] VIRGlucose [Mass/Vol]204 mg/lPVfpr86-88ZrdFuyjmuRiverside Methodist HospitalComment on above:Performed By: #### BEDG #### [facility] ([facility]) [address] [place] [address] VIRGlucose [Mass/Vol]125 mg/nKLonb68-77TktGvlosiRiverside Methodist HospitalComment on above:Performed By: #### BEDG #### [facility] ([facility]) [address] [place] [address] VIRBedside Glucose *Place/Obtain serum glucose if >500 per glucometer.on 71-24-4126Kurhyou [Mass/Vol]185 mg/bXKuhc67 - 99 mg/dLWright-Patterson Medical Center SystemInterpretation and review of laboratory resultsAbnormalProMedict Health SystemProDale Medical Center Health SystemGlucose [Mass/Vol]125 mg/wHPfux14 - 99 mg/dL ProMedicLakeview Hospital SystemInterpretation and review of laboratory resultsAbnormal [facility] SystemW[facility] SystemGlucose [Mass/Vol]204 mg/rRQngz90 - 99 mg/dLProMercy Health Fairfield Hospital SystemInterpretation and review of laboratory results AbnormalProAscension SE [facility] SystemGlucose [Mass/Vol]125 mg/xHZlca72 - 99 mg/dLWright-Patterson Medical Center SystemInterpretation and review of laboratory resultsAbnormalDepartment of Veterans Affairs [facility] SystemCBC WITH AUTO DIFFERENTIALon 11-40-4442TDBNZEGMB ABSOLUTE COUNT (10*3/UL) BY AUTOMATED COUNT0.0 10*3/uLNormal0.0-0.2ProMedica [facility] CampusComment on above:Performed By: #### CBCA #### [facility] ([facility]) [address] [place] [address] VIRBASOPHILS RELATIVE PERCENT BY AUTOMATED COUNT0.4 %Normal [facility] HospitalComment on above:Performed By: #### CBCA #### [facility]) [address] [place] [address]70 VIRCELLAVISION DIFFERENTIAL TYPEAUTOMATED DIFFERENTIALNormal [facility] HospitalComment on above:Performed By: #### CBCA #### [facility]) [address] [place] [address]43 VIREosinophils (Bld) [#/Vol]0.1 10*3/uLNormal0.0-0.4ProRiverside Methodist HospitalComment on above:Performed By: #### CBCA #### [address] [address] VIREOSINOPHILS RELATIVE PERCENT BY AUTOMATED COUNT1.6 %Normal [facility] HospitalComment on above:Performed By: #### CBCA #### [address] [address] VIRErythrocyte distribution width (RBC) [Ratio]17.3 %High 11.5-15ProRiverside Methodist HospitalComment on above:Performed By: #### CBCA #### [address] [address] VIRHematocrit (Bld) [Volume fraction]27.6 %Fea59-81SlaPetxllRiverside Methodist HospitalComment on above:Performed By: #### CBCA #### [facility]) [address] [place] [address] VIRHemoglobin (Bld) [Mass/Vol]9.2 g/dLLow11.7-15.5ProMedica [facility] CampusComment on above:Performed By: #### CBCA #### [facility]) [address] [place] [address] VIRLYMPHOCYTES ABSOLUTE COUNT (10*3/UL) BY AUTOMATED COUNT1.6 10*3/uLNormal1.0-3.5Pro[facility] HospitalComment on above: Performed By: #### CBCA #### [place] [id number] VIRLYMPHOCYTES RELATIVE PERCENT BY AUTOMATED COUNT25.8 % NormalProScci Hospital Lima HospitalComment on above:Performed By: #### CBCA #### [facility]) [address] [place] [address] VIRH (RBC) [Entitic mass]26.9 bwUza29-87PzqSbnzbvScci Hospital Lima HospitalComment on above:Performed By: #### CBCA #### [facility]) [address] [place] [address] VIRMC (RBC) [Mass/Vol]33.5 g/yDLzdrqh12-11AsmXsnaajScci Hospital Lima HospitalComment on above:Performed By: #### CBCA #### [facility]) [address] [place] [address] VIRMCV (RBC) [Entitic vol]81 vTCcafyk81-998VnhLqcrksScci Hospital Lima HospitalComment on above:Performed By: #### CBCA #### [place] [id number] VIRMONOCYTES ABSOLUTE COUNT (10*3/UL) BY AUTOMATED COUNT0.7 10*3/uLNormal0.0-0.9ProRiverside Methodist HospitalComment on above: Performed By: #### CBCA #### [place] [address] VIRMONOCYTES RELATIVE PERCENT BY AUTOMATED COUNT11.0 %Normal [facility] HospitalComment on above:Performed By: #### CBCA #### [facility]) [address] [place] [address] VIRNEUTROPHILS ABSOLUTE COUNT BY AUTOMATED COUNT3.8 10*3/uL Normal1.5-6.6Pro[facility] HospitalComment on above:Performed By: #### CBCA #### [facility] ([facility]) [address] [place] [address] VIRNEUTROPHILS RELATIVE PERCENT BY AUTOMATED COUNT61.2 % NormalCleveland Clinic Euclid Hospital HospitalComment on above:Performed By: #### CBCA #### [facility] ([facility]) [address] [place] [address] VIRPlatelet mean volume (Bld) [Entitic vol]8.3 fLNormal7-[address] [facility] HospitalComment on above:Performed By: #### CBCA #### [facility] ([facility]) [address] [place] [address] VIRPlatelets (Bld) [#/Vol]314 10*3/jEEmzsmh488-541OfnSmgqavRiverside Methodist HospitalComment on above:Performed By: #### CBCA #### [facility]) [address] [place], [place] [address] VIRRBC COUNT3.43 X10E12/LLow3.8-5.2Pro[facility] HospitalComment on above:Performed By: #### CBCA #### [facility] ([facility]) [address] [place], [place] [address] VIRWBC (Bld) [#/Vol]6.2 10*3/uLNormal4-11[facility] HospitalComment on above:Performed By: #### CBCA #### [facility] ([facility]) [address] [place] [address] VIRCBC auto differentialon 23-75-1967Qodbkbjmy (Bld) [#/Vol]0 10*3/uL0.0 - 0.2 10*3/uLProMedica Health SystemBasophils/100 WBC (Bld)0.4 % [facility] CampusDifferential cell count method Nom (Bld)AUTOMATED DIFFERENTIALProMercy Health Fairfield Hospital SystemEosinophils (Bld) [#/Vol]0.1 10*3/uL0.0 - 0.4 10*3/uLProMedica Health SystemEosinophils/100 WBC (Bld)1.6 %[facility] CampusErythrocyte distribution width (RBC) [Ratio]17.3 %High11.5 - 15 %[facility] CampusHematocrit (Bld) [Volume fraction]27.6 %Low35 - 47 %[facility] CampusHemoglobin (Bld) [Mass/Vol]9.2 g/dLLow11.7 - 15.5 g/dLSumma Health Akron CampusInterpretation and review of laboratory resultsAbnoCaroMont Regional Medical CenterLymphocytes (Bld) [#/Vol]1.6 10*3/uL1.0 - 3.5 10*3/uLSumma Health Akron CampusLymphocytes/100 WBC (Bld)25.8 %[facility] CampusMCH (RBC) [Entitic mass]26.9 pgLow27 - 34 [facility] HospitalMCHC (RBC) [Mass/Vol] 33.5 g/dL32 - 36 g/dLSumma Health Akron CampusMCV (RBC) [Entitic vol]81 fL80 - 100 [facility] HospitalMonocytes (Bld) [#/Vol]0.7 10*3/uL0.0 - 0.9 10*3/uL [facility] CampusMonocytes/100 WBC (Bld)11 %[facility] Neutrophils (Bld) [#/Vol]3.8 10*3/uL1.5 - 6.6 10*3/[facility] Neutrophils/100 WBC (Bld)61.2 %[facility] CampusPlatelet mean volume (Bld) [Entitic vol]8.3 fL7 - 12 [facility] HospitalPlatelets (Bld) [#/Vol]314 10*3/uLSumma Health Akron CampusRBC (Bld) [#/Vol]3.43 10*6/uLLowSumma Health Akron CampusWBC LM Ql (Sput)6.2PWellSpan Health COMPREHENSIVE METABOLIC PANELon 80-56-5257Abfvrwq [Mass/Vol]3.2 g/dLNormal 3.2-5.3PSouthern Ohio Medical CenterComment on above:Performed By: #### CMP #### [facility]) [address] [place] [address] VIRALP [Catalytic activity/Vol]115 U/LMbrwhy74-394TnyRfbhffScci Hospital Lima HospitalComment on above:Performed By: #### CMP #### [facility] ([facility]) [address] [place] [address] VIRALT [Catalytic activity/Vol]14 U/LNormal<=31ProMedParkview Health Bryan Hospital HospitalComment on above:Performed By: #### CMP #### [facility]) [address] [place] [address] VIRAnion gap [Moles/Vol]9 mmol/LNormal5-15ProRiverside Methodist HospitalComment on above:Performed By: #### CMP #### [address] [address] VIRAST [Catalytic activity/Vol]21 U/LNormal<=41ProScci Hospital Lima HospitalComment on above:Performed By: #### CMP #### [facility]) [address] [place] [address] VIRBilirubin [Mass/Vol]0.9 mg/dLNormal0.3-1.2PPremier Health Miami Valley Hospital HospitalComment on above:Performed By: #### CMP #### [facility]) [address] [place] [address] VIRCalcium [Mass/Vol]9.0 mg/dLNormal8.5-10.5ProMedParkview Health Bryan Hospital HospitalComment on above:Performed By: #### CMP #### [facility]) [address] [place] [address] [place] [address] VIRChloride [Moles/Vol]98 mmol/SYokpdw59-115EczUjphmxScci Hospital Lima HospitalComment on above:Performed By: #### CMP #### [facility]) [address] [place] [address] [place] [address] VIRCO2 [Moles/Vol]25 mmol/ZDmsstn75-39GxbQqagqx [facility] CampusComment on above:Performed By: #### CMP #### [facility]) [address] [place], [place] [address] VIRCreatinine [Mass/Vol]1.17 mg/dLHigh0.40-1.00ProRiverside Methodist HospitalComment on above:Result Comment: METHOD TRACEABLE TO IDMS STANDARDPerformed By: #### CMP #### [facility]) [address] [place], [place] [address] VIRGFR/1.73 sq M.predicted among non-blacks MDRD (S/P/Bld) [Vol rate/Area]47 mL/min/{1.73_m2}Low>=60ProRiverside Methodist Hospital Comment on above:Result Comment: eGFR not reported due to non-numeric value for Creatinine. Reported eGFR is based on the CKD-EPI 2020 equation that does not use a race coefficient.Performed By: #### CMP #### [place] [id number] VIRGlucose [Mass/Vol]103 mg/zVPxee42-27YcvKlepbfRiverside Methodist HospitalComment on above:Performed By: #### CMP #### [place] [address] VIRPotassium [Moles/Vol]3.8 mmol/LNormal3.5-5.0ProRiverside Methodist HospitalComment on above:Performed By: #### CMP #### [place] [address] VIRProtein [Mass/Vol]7.0 g/dLNormal6.0-8.0ProRiverside Methodist HospitalComment on above:Performed By: #### CMP #### [place] [address] VIRSodium [Moles/Vol]132 mmol/IImg766-694FcmEnjoveRiverside Methodist HospitalComment on above:Performed By: #### CMP #### [address] [place] [address] VIRUrea nitrogen [Mass/Vol]18 mg/dLNormal5-27[facility] HospitalComment on above:Performed By: #### CMP #### [facility] ([facility]) [address] [place] [address] VIRComprehensive metabolic panelon 22-93-9108Gkqmjhy [Mass/Vol]3.2 g/dL3.2 - 5.3 g/dLProDale Medical Center Health SystemALP [Catalytic activity/Vol]115 U/L39 - 130 U/LProMedica Health SystemALT No additional P-5'-P [Catalytic activity/Vol]14 U/LNINF - 31 U/LProMedica Health SystemAnion gap [Moles/Vol]9 mmol/L5 - 15 mmol/LProMedica Health SystemAST [Catalytic activity/Vol]21 U/LNINF - 41 U/LProMedica Health SystemBilirubin [Mass/Vol]0.9 mg/dL0.3 - 1.2 mg/dLProMercy Health Fairfield Hospital SystemCalcium [Mass/Vol]9 mg/dL8.5 - 10.5 mg/dLProMercy Health Fairfield Hospital SystemChloride [Moles/Vol]98 mmol/L98 - 109 mmol/L [facility] Hospitaledic Health SystemCO2 [Moles/Vol]25 mmol/L22 - 32 mmol/LPrCenterPointe Hospitalica Health SystemCreatinine [Mass/Vol]1.17 mg/dLHigh0.40 - 1.00 mg/dLWright-Patterson Medical Center SystemComment on above:METHOD TRACEABLE TO IDMS STANDARDEGFR Non-Race Dependent 47Buchanan General HospitalComment on above:eGFR not reported due to non- numeric value for Creatinine. Reported eGFR is based on the CKD-EPI 202 equation that does not use a race coefficient. Glucose [Mass/Vol]103 mg/fIDwlt35 - 99 mg/dLWright-Patterson Medical Center System Interpretation and review of laboratory resultsAbnormalProMercy Health Fairfield Hospital System Potassium [Moles/Vol]3.8 mmol/L3.5 - 5.0 mmol/LProMedica Health SystemProtein [Mass/Vol]7 g/dL6.0 - 8.0 g/dLWright-Patterson Medical Center SystemSodium [Moles/Vol]132 mmol/MNab158 - 146 mmol/LProMedica [facility] SystemUrea nitrogen [Mass/Vol]18 mg/dL 5 - 27 mg/dLWright-Patterson Medical Center SystemMAGNESIUMon 1946Esllznyus [Mass/Vol]1.8 mg/dLNormal1.8-2.6[facility] HospitalComment on above: Performed By: #### MG #### [facility] ([facility]) [address] [place] [address] VIRMagnesiumon 38-64-6133Mbzsvkhih [Mass/Vol]1.8 mg/dL1.8 - 2.6 mg/dLSumma Health Akron CampusNo Panel Informationon 71-75-3779Pyrfxsesbiinbj and review of laboratory resultsNormalHorsham ClinicPHOSPHORUSon 33-36-0174Nuduocqcf [Mass/Vol]3.1 mg/dLNormal2.4-4.9[facility] HospitalComment on above:Performed By: #### PHOS #### [facility] ([facility]) [address] [place] [address] VIRPhosphoruson 24-72-8723Mzciuuqdd [Mass/Vol]3.1 mg/dL2.4 - 4.9 mg/dLSumma Health Akron CampusXR ABDOMEN AP 1 VWon 63-49-8583AT ABDOMEN AP 1 VWXR ABDOMEN AP 1 VW Abdomen single view Clinical history:n/v abdominal pain Comparison: 10/17/2019 Findings: AP supine view of the abdomen. Ventricular shunt catheter tubing, tip in the right lower quadrant. Nonobstructive, nonspecific bowel gas pattern. Impression: Nonobstructive, nonspecific bowel gas pattern. Finalized by Sarai Acevedo MD on 07/03/2025 2:51 PMNormalProRiverside Methodist HospitalXR Abdomen APon 61-23-4669Fkdtawc single view Clinical history:n/v abdominal pain Comparison: [...] Sarai Acevedo MD on 07/03/2025 2:51 PM [facility] HospitalClutterRadiology Study observation (narrative)[facility] HospitalClutterXR Abdomen APOrdered By: Sarai Acevedo on 84-55-8007NazPblgsqSumma Health [facility] Campus Work Phone: BEDSIDE GLUCOSEon 00-12-6488Zjggosa [Mass/Vol]99 mg/dL Lmrjqi60-87XjmWcswqyBarnesville HospitalComment on above:Performed By: #### BEDG #### [facility] ([facility]) [address] [place] [address] VIRBLOOD CULTUREon 46-04-2181Qlskyfbo identified Cx Nom (Bld) CULTURE RESULTS NO GROWTH 5 DAYSMadison HealthComment on above:Order Comment: *SIRS Criteria: (must display [...] source who are improvingPerformed By: #### BC ####[facility] ([facility])[address] [address] VIRBacteria identified Cx Nom (Bld)CULTURE RESULTS NO GROWTH 5 DAYSNoCleveland Clinic Mercy HospitalComment on above:Order Comment: *SIRS Criteria: (must [...] source who are improvingPerformed By: #### BC ####[facility] ([facility])[address], [place] [address] VIRBedside Glucose *Place/Obtain serum glucose if >500 per glucometer.on 54-44-7696Onmihhr [Mass/Vol]99 mg/dL65 - 99 mg/dLSumma Health Akron Campus Interpretation and review of laboratory resultsNormalEncompass Health Rehabilitation Hospital of HarmarvilleCB WITH AUTO DIFFERENTIALon 94-14-7280GJADSHFGE ABSOLUTE COUNT (10*3/UL) BY AUTOMATED COUNT0.0 10*3/uLNormal0.0-0.2PTriHealth Bethesda Butler HospitalComment on above:Performed By: #### CBCA ####[facility] ([facility])[address] [place] [address], [id number] VIRBASOPHILS RELATIVE PERCENT BY AUTOMATED COUNT0.5 %Madison HealthComment on above: Performed By: #### CBCA ####[facility] ([address], [id number] VIRCELLAVISION DIFFERENTIAL TYPEAUTOMATED DIFFERENTIAL NormalMercy Health Allen HospitalComment on above:Performed By: #### CBCA ####[facility] ([facility])[address] [place] [address].[place], [id number] VIREosinophils (Bld) [#/Vol]0.1 10*3/uLNormal0.0-0.4[facility] Comment on above:Performed By: #### CBCA ####[facility] ([address], [id number] VIREOSINOPHILS RELATIVE PERCENT BY AUTOMATED COUNT1.3 %Madison HealthComment on above:Performed By: #### CBCA ####[facility] ([address], [id number] VIRErythrocyte distribution width (RBC) [Ratio]17.6 %High 11.5-15ProWhite Rock Medical CenterComment on above:Performed By: #### CBCA ####[facility] ([address], [id number] VIRHematocrit (Bld) [Volume fraction]31.1 %[id number] Rock Medical Center Comment on above:Performed By: #### CBCA ####[facility] ([address], [id number] VIRHemoglobin (Bld) [Mass/Vol]10.3 g/dL Low11.7-15.5PTriHealth Bethesda Butler HospitalComment on above:Performed By: #### CBCA ####[facility] ([address], [id number] VIRLYMPHOCYTES ABSOLUTE COUNT (10*3/UL) BY AUTOMATED COUNT1.4 10*3/uLNormal 1.0-3.5PTriHealth Bethesda Butler HospitalComment on above:Performed By: #### CBCA ####[facility] ([address], [id number] VIRLYMPHOCYTES RELATIVE PERCENT BY AUTOMATED COUNT19.8 %NormalProWhite Rock Medical CenterComment on above:Performed By: #### CBCA ####[facility] ([address], [id number] VIRMCH (RBC) [Entitic mass] 26.3 [id number] Rock Medical CenterComment on above:Performed By: #### CBCA ####[facility] [facility] ([address] [place] [address] VIRMCHC (RBC) [Mass/Vol]32.9 g/kTMyllrw18-87XffSqphydPike Community Hospital on above:Performed By: #### CBCA ####[facility] ([address], [id number] VIRMCV (RBC) [Entitic vol]80 fLNormal 80-100ProWhite Rock Medical CenterComment on above:Performed By: #### CBCA ####[facility] ([address], [id number] VIRMONOCYTES ABSOLUTE COUNT (10*3/UL) BY AUTOMATED COUNT0.7 10*3/uLNormal0.0-0.9 [facility] HospitalComment on above:Performed By: #### CBCA ####[facility] ([address], [id number] VIRMONOCYTES RELATIVE PERCENT BY AUTOMATED COUNT9.1 %NormalMercy Health Allen HospitalComment on above:Performed By: #### CBCA ####[facility] ([address], [id number] VIRNEUTROPHILS ABSOLUTE COUNT BY AUTOMATED COUNT5.0 10*3/uLNormal1.5-6.6[facility] HospitalComment on above:Performed By: #### CBCA ####[facility] ([address], [id number] VIRNEUTROPHILS RELATIVE PERCENT BY AUTOMATED COUNT69.3 %NormalMercy Health Allen HospitalComment on above:Performed By: #### CBCA ####[facility] ([address] [address] VIRPlatelet mean volume (Bld) [Entitic vol]7.8 fLNormal7-12ProMedica High[facility] Springs Surgical CenterComment on above:Performed By: #### CBCA ####[facility] ([address], [id number] VIRPlatelets (Bld) [#/Vol]401 10*3/wNKsvmvm073-038WyzQmnlgj Fremont HospitalComment on above: Performed By: #### CBCA ####[facility] ([facility])[address] [place] [address] AVE.[place], [id number] VIRRBC COUNT3.89 X10E12/LNormal3.8-5.2PTriHealth Bethesda Butler HospitalComment on above:Performed By: #### CBCA ####[facility] ([facility])[address] [place] [address] AVE.[place], [id number] VIRWBC (Bld) [#/Vol] 7.2 10*3/uLNormal4-11ProWhite Rock Medical CenterComment on above:Performed By: #### CBCA ####[facility] ([address], [id number] VIRCOMPREHENSIVE METABOLIC PANELon 10-57-4305Wghjqzr [Mass/Vol]3.6 g/dLNormal3.2-5.3PTriHealth Bethesda Butler HospitalComment on above: Performed By: #### CMP ####[facility] ([address] [place] [address] VIRALP [Catalytic activity/Vol]135 U/XQcrt64-306 [facility] HospitalComment on above:Performed By: #### CMP ####[facility] ([address] [place] [address] VIRALT [Catalytic activity/Vol]18 U/LNormal<=31PTriHealth Bethesda Butler HospitalComment on above:Performed By: #### CMP ####[facility] ([address] [place] [address] VIRAnion gap [Moles/Vol]14 mmol/LNormal5-15 [facility] HospitalComment on above:Performed By: #### CMP ####[facility] ([address] [place] [address] VIRAST [Catalytic activity/Vol]29 U/LNormal<=41ProWhite Rock Medical CenterComment on above:Performed By: #### CMP ####[facility] ([address] [place] [address] VIRBilirubin [Mass/Vol]0.8 mg/dLNormal0.3-1.2 [facility] HospitalComment on above:Performed By: #### CMP ####[facility] ([address] [place] [address] VIRCalcium [Mass/Vol]9.7 mg/dLNormal8.5-10.5PTriHealth Bethesda Butler HospitalComment on above: Performed By: #### CMP ####[address] [place] [address] VIRChloride [Moles/Vol]96 mmol/ITtc70-439SjrDbffqaMercy Health Allen HospitalComment on above:Performed By: #### CMP ####[facility] ([address] [place] [address] VIRCO2 [Moles/Vol]23 mmol/KCayvcg45-89YcsXizktyTriHealth Bethesda Butler HospitalComment on above:Performed By: #### CMP ####[facility] ([address] [place] [address] VIRCreatinine [Mass/Vol]1.17 mg/dLHigh0.40-1.00[facility] Comment on above:Result Comment: METHOD TRACEABLE TO IDMS STANDARDPerformed By: #### CMP ####[facility] ([address] [place] [address] VIRGFR/1.73 sq M.predicted among non-blacks MDRD (S/P/Bld) [Vol rate/Area]47 mL/min/{1.73_m2}Low>=60ProWhite Rock Medical CenterComment on above:Result Comment: eGFR not reported due to non-numeric value for Creatinine.Reported eGFR is based ontheCKD-EPI 2020 equation that doesnot use a race coefficient.Performed By: #### CMP ####[facility] ([address] [place] [address] VIRGlucose [Mass/Vol]131 mg/dLHigh 65-99ProWhite Rock Medical CenterComment on above:Performed By: #### CMP ####[facility] ([address], [place] [address] VIRPotassium [Moles/Vol]3.9 mmol/LNormal3.5-5.0[facility] Comment on above:Performed By: #### CMP ####[facility] ([address] [place] [address] VIRProtein [Mass/Vol]8.2 g/dLHigh 6.0-8.0[facility] HospitalComment on above:Performed By: #### CMP ####[facility] ([address], [place] [address] VIRSodium [Moles/Vol]133 mmol/QWgi923-837UhdQfhsgxWhite Rock Medical CenterComment on above:Performed By: #### CMP ####[address] [place] [address] VIRUrea nitrogen [Mass/Vol]23 mg/dLNormal5-27 [facility] HospitalComment on above:Performed By: #### CMP ####[address] [place] [address] VIRCT ABDOMEN AND PELVIS W CONTon 40-11-4294FW ABDOMEN AND PELVIS W CONTNormal [facility] HospitalCT BRAIN WO CONTon 69-79-6389CC BRAIN WO CONTNormal [facility] HospitalER EXTRA URINE CULTUREon 39-20-8460LO EXTRA URINE CULTUREERXUC ER EXTRA URINE CULTURE CancelledNoCleveland Clinic Mercy Hospital LACTATE W/ REFLEXon 35-43-9129HOHSNKE W/REFLEX1.2 mmol/LNormal0.4-2.0[facility] HospitalComment on above:Order Comment: Result did not trigger repeat Lactate,re-order if needed.Performed By: #### LACTS ####[facility] ([address] [address] VIRLIPASEon 32-05-1684Mxxjnj [Catalytic activity/Vol]28 U/CRtopvl17-80AdfBgeqtfWhite Rock Medical CenterComment on above:Performed By: #### LIPA ####[facility] ([address] VIRMAGNESIUMon 07-02-2025 Magnesium [Mass/Vol]1.4 mg/dLLow1.8-2.6ProWhite Rock Medical CenterComment on above:Performed By: #### MG ####[facility] ([address] [address] VIRPHOSPHORUSon 44-46-0170Rhjulllbe [Mass/Vol] 3.0 mg/dLNormal2.4-4.9ProRiverside Methodist HospitalComment on above: Performed By: #### PHOS #### [facility] ([address] [address] VIRPOCT NURSING URINE MACROSCOPIC UAon 42-97-7323BOKLGMZQY NURModerateAbnormalNegativeMercy Health Allen HospitalComment on above:Performed By: #### NUM ####[facility] ([address] [address] VIRBLOOD/HGB NURNegativeNormalNegativeMercy Health Allen HospitalComment on above:Performed By: #### NUM ####[facility] ([address] [address] VIRGLUCOSE NURNegativeNormal NegativeProMedica Highland Springs Surgical CenterComment on above:Performed By: #### NUM ####[facility] ([address] [address] VIRKETONES NUR40 mg/dLAbnormalNegativeProWhite Rock Medical CenterComment on above:Performed By: #### NUM ####[facility] ([address] [address] VIRLEUKOCYTE ESTERASE NURNegativeNormalNegative [facility] HospitalComment on above:Performed By: #### NUM ####[facility] ([address] [address] VIRNITRITE NURNegativeNormalNegativeMercy Health Allen HospitalComment on above:Performed By: #### NUM ####[facility] ([address] [address] VIRPH NUR5.0Jizkhc2.0, 6.0, 6.5, 7.0, 7.5, 8.0, 8.5, 5.5 [facility] HospitalComment on above:Performed By: #### NUM ####[facility] ([address] [address] VIRPROTEIN NUR30 mg/dLAbnormalNegativeMercy Health Allen HospitalComment on above:Performed By: #### NUM ####[facility] ([address] [address] VIRSPECIFIC GRAVITY MARYJO>=1.759Fvqlzjof0.010, 1.015, 1.020, 1.025Mer[facility] Allen HospitalComment on above:Performed By: #### NUM ####[address] [address] VIRUROBILINOGEN NUR0.2 E.U./dLNormalTrinity Health System West Campus HospitalComment on above:Performed By: #### NUM ####[facility] ([address] [address] VIRPhosphoruson 64-70-9643Aybgjtkklycgsc and review of laboratory resultsNoCaroMont Regional Medical CenterPhosphate [Mass/Vol]3 mg/dL2.4 - 4.9 mg/dLSumma Health Akron CampusProMercy Health Fairfield Hospital SystemTROP I, HIGH SENSITIVITY 1 HOURon 95-91-7175MGCXCSND I, HIGH OPMBIJUREQK55 ng/LNormal<[address] HelenaComment on above:Performed By: #### TNIHS1 ####[facility] ([address] [address] VIRTROPONIN I, HIGH SENSITIVITY 0 HOURon 89-34-9860ZZTFLBOK I, HIGH GVJSNMAGLKH37 ng/LHigh<16[facility] HospitalComment on above:Performed By: #### TNIHS0 ####[facility] ([address] [address] VIRURINE CULTUREon 56-27-8705Efgbmmbe identified Cx Nom (U)CULTURE RESULTS NO GROWTH AT <1000 CFU/mLNormalMercy Health Allen HospitalComment on above: Performed By: #### UC ####[facility] ([facility])[address] [facility] [address], [place] [address] VIRUS PELVIC WITH DUPLEXon 72-25-6640SK PELVIC WITH DUPLEXNoCleveland Clinic Mercy HospitalXR CHEST 1 VWon 11-47-0097SM CHEST 1 [facility] MiamisburgUrine Cultureon 22-60-3420Hmgtaerj identified Cx Nom (U)ORGANISM: Citrobacter freundii complex (O:CITFRC) Somers Count >100,000 ORGANISM: Enterococcus faecalis (O:ENTFAC) Somers Count 50,000 Aerobic CLARK Charge (NMIC56) SUSCEPTIBILITY [...] RESISTANT TO ALL B-LACTAM DRUGS. PERFORMED BY: [facility] [address] [place] [address] PATHOLOGIST EXPERIMENTAL PLASTICS FABRICATOR MARA LOPEZ M.D.[facility] Physician GroupComment on above: Performed By: #### CUU #### [facility] [address] [place] [address] USABEDSIDE GLUCOSEon 39-47-3934Wfkcbqk [Mass/Vol]336 mg/dL Lctf75-24NosShtymw [facility] Springs Surgical CenterComment on above:Performed By: #### BEDG ####[facility] ([facility])[address] [place] [address] VIRCBC WITH AUTO DIFFERENTIALon 91-38-9317MLHHQYMCA ABSOLUTE COUNT (10*3/UL) BY AUTOMATED COUNT0.1 10*3/uLNormal0.0-0.2PTriHealth Bethesda Butler HospitalComment on above:Performed By: #### CBCA ####[facility] ([address], [id number] VIRBASOPHILS RELATIVE PERCENT BY AUTOMATED COUNT 1.4 %NormalMercy Health Allen HospitalComment on above:Performed By: #### CBCA ####[facility] ([address], [place] VIRCELLAVISION DIFFERENTIAL TYPEAUTOMATED DIFFERENTIALNoalMercy Health Allen HospitalComment on above:Performed By: #### CBCA ####[address], [id number] VIREosinophils (Bld) [#/Vol] 0.3 10*3/uLNormal0.0-0.4Mer[facility] Health Allen HospitalComment on above:Performed By: #### CBCA ####[facility] ([address], [id number] VIREOSINOPHILS RELATIVE PERCENT BY AUTOMATED COUNT4.0 % NormalMercy Health Allen HospitalComment on above:Performed By: #### CBCA ####[address], [id number] VIRErythrocyte distribution width (RBC) [Ratio]16.5 %High11.5-15ProWhite Rock Medical CenterComment on above:Performed By: #### CBCA ####[address], [id number] VIRHematocrit (Bld) [Volume fraction]28.0 %Bie16-62YzsXvwpsjWhite Rock Medical CenterComment on above: Performed By: #### CBCA ####[address], [id number] VIRHemoglobin (Bld) [Mass/Vol]9.2 g/dLLow11.7-15.5 [facility] HospitalComment on above:Performed By: #### CBCA ####[facility] ([address] [id number] VIR LYMPHOCYTES ABSOLUTE COUNT (10*3/UL) BY AUTOMATED COUNT2.2 10*3/uLNormal1.0-3.5 [facility] HospitalComment on above:Performed By: #### CBCA ####[facility] ([address] VIR LYMPHOCYTES RELATIVE PERCENT BY AUTOMATED COUNT31.9 %NormalProWhite Rock Medical CenterComment on above:Performed By: #### CBCA ####[facility] ([address] [address] VIRMCH (RBC) [Entitic mass] 26.7 cfWug52-97XwqUagnhmWhite Rock Medical CenterComment on above:Performed By: #### CBCA ####[facility] ([address] [place] [address] VIRMCHC (RBC) [Mass/Vol]33.0 g/lSGrgwjg18-36NniJbkoqgMercy Health Allen Hospital Comment on above:Performed By: #### CBCA ####[facility] ([address], [id number] VIRMCV (RBC) [Entitic vol]81 fLNormal 80-100ProWhite Rock Medical CenterComment on above:Performed By: #### CBCA ####[facility] ([address] [id number] VIRMONOCYTES ABSOLUTE COUNT (10*3/UL) BY AUTOMATED COUNT0.8 10*3/uLNormal0.0-0.9 [facility] HospitalComment on above:Performed By: #### CBCA ####[facility] ([facility] [address]J[facility] [place] VIRMONOCYTES RELATIVE PERCENT BY AUTOMATED COUNT12.4 %NormalProWhite Rock Medical CenterComment on above:Performed By: #### CBCA ####[facility] ([place] [address] [id number] VIRNEUTROPHILS ABSOLUTE COUNT BY AUTOMATED COUNT3.4 10*3/uLNormal1.5-6.6ProWhite Rock Medical CenterComment on above:Performed By: #### CBCA ####[facility] ([address], [id number] VIRNEUTROPHILS RELATIVE PERCENT BY AUTOMATED COUNT50.3 %NormalMercy Health Allen HospitalComment on above:Performed By: #### CBCA ####[facility] ([address] [place] [address] VIRPlatelet mean volume (Bld) [Entitic vol]8.2 fLNormal7-12PTriHealth Bethesda Butler HospitalComment on above:Performed By: #### CBCA ####[facility] ([address], [id number] VIRPlatelets (Bld) [#/Vol]226 10*3/uZIczcze073-805McvPgoqfc [facility]remont HospitalComment on above: Performed By: #### CBCA ####[facility] ([facility])[address] [place], [place] [address].[place], [id number] VIRRBC COUNT3.45 X10E12/LLow3.8-5.2PUCHealth [facility] Hospital HospitalComment on above:Performed By: #### CBCA ####[facility] ([address], [id number] VIRWBC (Bld) [#/Vol]6.8 10*3/uLNormal4-11ProWhite Rock Medical CenterComment on above:Performed By: #### CBCA ####[facility] ([facility] [place] [address] VIRCOMPREHENSIVE METABOLIC PANELon 11-00-9999Uuaasdm [Mass/Vol]2.9 g/dLLow 3.2-5.3PTriHealth Bethesda Butler HospitalComment on above:Performed By: #### CMP ####[facility] ([place] [address], [place] [address] VIRALP [Catalytic activity/Vol]104 U/RWgiafq86-314FfwLdcmefWhite Rock Medical CenterComment on above:Performed By: #### CMP ####[facility] ([place] [address] [place] [address] VIRALT [Catalytic activity/Vol]8 U/LNormal<=31PTriHealth Bethesda Butler HospitalComment on above:Performed By: #### CMP ####[facility] ([address] [place] [address] VIRAnion gap [Moles/Vol]8 mmol/LNormal5-15ProWhite Rock Medical CenterComment on above:Performed By: #### CMP ####[facility] ([place] [address] [place] [address] VIRAST [Catalytic activity/Vol]14 U/LNormal<=41ProWhite Rock Medical CenterComment on above: Performed By: #### CMP ####[facility] ([place] [address] [place] [address] VIRBilirubin [Mass/Vol]0.3 mg/dLNormal0.3-1.2 [facility] HospitalComment on above:Performed By: #### CMP ####[facility] ([place] [address] [place] [address] VIRCalcium [Mass/Vol]8.8 mg/dLNormal8.5-10.5PTriHealth Bethesda Butler HospitalComment on above: Performed By: #### CMP ####[facility] ([address] [place] [address] VIRChloride [Moles/Vol]106 mmol/REslozm61-368 [facility] HospitalComment on above:Performed By: #### CMP ####[facility] ([address] [place] [address] VIRCO2 [Moles/Vol]26 mmol/CPqpsyi88-84YgxHfskgd [facility] Surgical CenterComment on above: Performed By: #### CMP ####[facility] ([address] [address] VIRCreatinine [Mass/Vol]1.28 mg/dLHigh0.40-1.00 [facility] HospitalComment on above:Result Comment: METHOD TRACEABLE TO IDMS STANDARDPerformed By: #### CMP ####[facility] ([address] [address] VIRGFR/1.73 sq M.predicted among non- blacks MDRD (S/P/Bld) [Vol rate/Area]43 mL/min/{1.73_m2}Low>=60[facility] HospitalComment on above:Result Comment: eGFR not reported due to non-numeric value for Creatinine.Reported eGFR is based ontheCKD-EPI 2021 equation that doesnot use a race coefficient.Performed By: #### CMP ####[facility] ([address] [place] [address] VIRGlucose [Mass/Vol]160 mg/jKFlnb81-42NerYgzfglWhite Rock Medical CenterComment on above:Performed By: #### CMP ####[facility] ([address] [address] VIRPotassium [Moles/Vol]3.8 mmol/LNormal3.5-5.0ProWhite Rock Medical CenterComment on above:Performed By: #### CMP ####[facility] ([address] [place] [address] VIRProtein [Mass/Vol]6.3 g/dLNormal6.0-8.0ProWhite Rock Medical CenterComment on above: Performed By: #### CMP ####[facility] ([address] [place] [address] VIRSodium [Moles/Vol]140 mmol/TGukclh100-638ItvBmenso [facility] HospitalComment on above:Performed By: #### CMP ####[facility] ([address] [place] [address] VIRUrea nitrogen [Mass/Vol]18 mg/dLNormal5-27ProWhite Rock Medical CenterComment on above:Performed By: #### CMP ####[facility] ([address] [place] [address] VIRMAGNESIUMon 89-72-5043Noourjmid [Mass/Vol]2.0 mg/dL Normal1.8-2.6ProWhite Rock Medical CenterComment on above:Performed By: #### MG ####[facility] ([address], [place] [address] VIRURINALYSISon 96-69-3052Uopyoefmu Ql (U)NegativeNormalNegativeMercy Health Allen HospitalComment on above:Performed By: #### UA ####[facility] ([address] [place] [address] VIRBLOOD/HGBNegative NormalNegativeMercy Health Allen HospitalComment on above:Performed By: #### UA ####[facility] ([address], [place] [address] VIRColor (U)YellowNormalYellowProWhite Rock Medical CenterComment on above: Performed By: #### UA ####[facility] ([address] [address] VIRGlucose Ql (U)NegativeNormalNegative, 250 mg/dL [facility] HospitalComment on above:Performed By: #### UA ####[facility] ([address] [address] VIRKetones Ql (U)NegativeNormalNegativeProWhite Rock Medical CenterComment on above:Performed By: #### UA ####[facility] ([address] [place] [address] VIRLeukocyte esterase Test strip Ql (U)NegativeNormal NegativeProWhite Rock Medical CenterCompromedica char[facility] on above:Performed By: #### UA ####[facility] ([address] [place] [address] VIRMUCOUSPresentAbnormalNonePTriHealth Bethesda Butler HospitalCompromedica [facility] on above: Performed By: #### UA ####[facility] ([address] [address] VIRNitrite Ql (U)NegativeNormalNegativeMercy Health Allen HospitalCompromedica [facility] on above:Performed By: #### UA ####[facility] ([address] [place] [address] VIRPH,URINE6.0Normal 5.0-8.5PRapides Regional Medical Centerica [facility] Surgical CenterCompromedica [facility] on above:Performed By: #### UA ####[facility] ([address] [place] [address] VIRProtein Ql (U)TraceAbnormalNegativeMercy Health Allen HospitalComment on above:Performed By: #### UA ####[facility] ([address] [place] [address] VIRSpecific gravity (U) [Rel density]1.025 Normal1.003-1.035[facility] HospitalCompromedica [facility] on above:Performed By: #### UA ####[facility] ([facility])[address] [place] [address] [place] [address] VIRTURBIDITYClearNormalClearMercy Health Allen HospitalComment on above: Performed By: #### UA ####[facility] ([facility])[address] [place] [address] [place] [address] VIRUROBILINOGEN0.2 eu/dLNormal0.2 eu/dL, 1.0 eu/dL [facility] Allen HospitalComment on above:Performed By: #### UA ####[facility] ([address] [place] [address] VIRURINE CULTUREon [id number] identified Cx Nom (U)CULTURE RESULTS <10,000 ORGANISMS/mL NORMAL URO GENITAL FLORAMadison Health Comment on above:Performed By: #### UC ####[facility] (TT)[address] [facility] [address], [place] [address] VIRBEDSIDE GLUCOSEon 06-12-2025 Glucose [Mass/Vol]229 mg/nNFvcd16-08SkaQqvkko10 Hamilton StreetComment on above: Performed By: #### BEDG ####[facility] ([facility])[address] [place] [address] AVE.[place], [id number] VIRGlucose [Mass/Vol]229 mg/pULwyo25-51StvKcjwhs10 Hamilton StreetComment on above:Performed By: #### BEDG ####[facility] ([address], [id number] VIRGlucose [Mass/Vol] 262 mg/oTUaeb69-56SyhQwmngy50 Martin StreetComment on above:Performed By: #### BEDG ####[facility] ([address] [address] VIRGlucose [Mass/Vol]184 mg/mPTrhe10-32StkHchgen50 Martin StreetComment on above:Performed By: #### BEDG ####[facility] ([address], [id number] VIRCBC WITH AUTO DIFFERENTIALon [id number] ABSOLUTE COUNT (10*3/UL) BY AUTOMATED COUNT0.1 10*3/uLNormal 0.0-0.2Pro[facility] High[facility] Springs Surgical CenterComment on above:Performed By: #### CBCA ####[facility] ([address], [id number] VIRBASOPHILS RELATIVE PERCENT BY AUTOMATED COUNT1.3 %NormalMercy Health Allen HospitalComment on above:Performed By: #### CBCA ####[facility] ([address], [id number] VIRCELLAVISION DIFFERENTIAL TYPEAUTOMATED DIFFERENTIALNormalMercy Health Allen HospitalComment on above: Performed By: #### CBCA ####[facility] ([address], [id number] VIREosinophils (Bld) [#/Vol]0.3 10*3/uLNormal0.0-0.4 [facility] Allen HospitalComment on above:Performed By: #### CBCA ####[facility] ([address], [id number] VIR EOSINOPHILS RELATIVE PERCENT BY AUTOMATED COUNT3.4 %NormalMercy Health Allen HospitalComment on above:Performed By: #### CBCA ####[facility] ([address], [id number] VIRErythrocyte distribution width (RBC) [Ratio]16.1 %High11.5-15Mer[facility] Health Allen HospitalComment on above: Performed By: #### CBCA ####[facility] ([address], [id number] VIRHematocrit (Bld) [Volume fraction]32.8 %Eyn14-90 [facility] Allen HospitalComment on above:Performed By: #### CBCA ####[facility] ([address], [id number] VIRHemoglobin (Bld) [Mass/Vol]10.9 g/dLLow11.7-15.5PTriHealth Bethesda Butler HospitalComment on above: Performed By: #### CBCA ####[facility] ([address], [id number] VIRLYMPHOCYTES ABSOLUTE COUNT (10*3/UL) BY AUTOMATED COUNT2.2 10*3/uLNormal1.0-3.5PTriHealth Bethesda Butler HospitalComment on above: Performed By: #### CBCA ####[facility] ([address], [id number] VIRLYMPHOCYTES RELATIVE PERCENT BY AUTOMATED COUNT29.1 %NormalProWhite Rock Medical CenterComment on above:Performed By: #### CBCA ####[facility] ([address], [id number] VIRMCH (RBC) [Entitic mass]26.5 aeEmp33-66WsfFbhjfmMercy Health Allen HospitalComment on above:Performed By: #### CBCA ####[facility] ([address], [id number] VIRMCHC (RBC) [Mass/Vol]33.2 g/tEOmvsle31-48 [facility] HospitalComment on above:Performed By: #### CBCA ####[facility] ([address], [id number] VIRMCV (RBC) [Entitic vol]80 eUYiyjup94-417IdkXwfykoMercy Health Allen HospitalComment on above: Performed By: #### CBCA ####[facility] ([address], [id number] VIRMONOCYTES ABSOLUTE COUNT (10*3/UL) BY AUTOMATED COUNT1.0 10*3/uLHigh0.0-0.9Mer[facility] Health Allen HospitalComment on above:Performed By: #### CBCA ####[facility] ([address], [id number] VIRMONOCYTES RELATIVE PERCENT BY AUTOMATED COUNT13.9 % NormalMercy Health Allen HospitalComment on above:Performed By: #### CBCA ####[facility] ([address], [id number] VIRNEUTROPHILS ABSOLUTE COUNT BY AUTOMATED COUNT3.9 10*3/uLNormal1.5-6.6 [facility] Allen HospitalComment on above:Performed By: #### CBCA ####[address], [id number] VIR NEUTROPHILS RELATIVE PERCENT BY AUTOMATED COUNT52.3 %NormalMercy Health Allen HospitalComment on above:Performed By: #### CBCA ####[facility] ([address], [id number] VIRPlatelet mean volume (Bld) [Entitic vol]9.1 fLNormal7-12PTriHealth Bethesda Butler HospitalComment on above: Performed By: #### CBCA ####[facility] ([address], [id number] VIRPlatelets (Bld) [#/Vol]233 10*3/tLMygxbb671-861 [facility] HospitalComment on above:Performed By: #### CBCA ####[address], [id number] VIRRBC COUNT 4.11 X10E12/LNormal3.8-5.2PTriHealth Bethesda Butler HospitalComment on above:Performed By: #### CBCA ####[facility] ([address], [id number] VIRWBC (Bld) [#/Vol]7.4 10*3/uLNormal4-11Mer[facility] Health Allen HospitalComment on above:Performed By: #### CBCA ####[facility] ([address], [id number] VIRCOMPREHENSIVE METABOLIC PANELon 12-10-0671Jlnxydm [Mass/Vol]3.2 g/dLNormal3.2-5.3PTriHealth Bethesda Butler HospitalComment on above:Performed By: #### CMP ####[facility] ([address] [place] [address] VIRALP [Catalytic activity/Vol]115 U/TYtartd85-844XlcArpjgyWhite Rock Medical CenterComment on above: Performed By: #### CMP ####[address] [place] [address] VIRALT [Catalytic activity/Vol]12 U/LNormal<=31 [facility] HospitalComment on above:Performed By: #### CMP ####[facility] ([address] [place] [address] VIRAnion gap [Moles/Vol]11 mmol/LNormal5-15ProWhite Rock Medical CenterComment on above: Performed By: #### CMP ####[facility] ([address] [place] [address] VIRAST [Catalytic activity/Vol]21 U/LNormal<=41 [facility] HospitalComment on above:Performed By: #### CMP ####[address] [place] [address] VIRBilirubin [Mass/Vol]0.6 mg/dLNormal0.3-1.2PTriHealth Bethesda Butler HospitalComment on above: Performed By: #### CMP ####[facility] ([address] [place] [address] VIRCalcium [Mass/Vol]8.9 mg/dLNormal8.5-10.5PTriHealth Bethesda Butler HospitalComment on above:Performed By: #### CMP ####[facility] ([address] [place] [address] VIRChloride [Moles/Vol]101 mmol/FOikfsq26-432GmkIxdilxWhite Rock Medical CenterComment on above: Performed By: #### CMP ####[facility] ([address] [place] [address] VIRCO2 [Moles/Vol]25 mmol/SGrroja51-37MopEyqtzzTriHealth Bethesda Butler HospitalComment on above:Performed By: #### CMP ####[address] [place] [address] VIRCreatinine [Mass/Vol]1.21 mg/dLHigh0.40-1.00ProWhite Rock Medical CenterComment on above: Result Comment: METHOD TRACEABLE TO IDMS STANDARDPerformed By: #### CMP ####[address] [address] VIRGFR/1.73 sq M.predicted among non-blacks MDRD (S/P/Bld) [Vol rate/Area] 46 mL/min/{1.73_m2}Low>=60ProWhite Rock Medical CenterComment on above:Result Comment: eGFR not reported due to non-numeric value for Creatinine.Reported eGFR is based ontheCKD-EPI 2020 equation that doesnot use a race coefficient. Performed By: #### CMP ####[facility] ([address] [place] [address] VIRGlucose [Mass/Vol]157 mg/hIBkxv12-34AueJzpkcjWhite Rock Medical CenterComment on above:Performed By: #### CMP ####[facility] ([address] [place] [address] VIRPotassium [Moles/Vol]4.1 mmol/LNormal3.5-5.0ProWhite Rock Medical CenterComment on above: Performed By: #### CMP ####[facility] ([facility])[address] [place] [address] [place] [address] VIRProtein [Mass/Vol]7.2 g/dLNormal6.0-8.0ProWhite Rock Medical CenterComment on above:Performed By: #### CMP ####[facility] ([facility])[address] [place] [address] [place] [address] VIRSodium [Moles/Vol]137 mmol/EOmbxly433-147BmdAlvyxs Fremont HospitalComment on above: Performed By: #### CMP ####[facility] ([address] [place] [address] VIRUrea nitrogen [Mass/Vol]18 mg/dLNormal5-[address] HelenaComment on above:Performed By: #### CMP ####[facility] ([facility])[address] [place] [address].[place] [address] VIRMAGNESIUM on 71-20-4394Mwumeiyfr [Mass/Vol]2.4 mg/dLNormal1.8-2.6ProWhite Rock Medical CenterComment on above:Performed By: #### MG ####[facility] ([facility])[address] [place] [address] [place] [address] VIRAPTTon 81-00-7720rRMO Coag (Bld) [Time]27 tQhlxye69-59OytAnmsxwWhite Rock Medical CenterComment on above:Performed By: #### PTT ####[facility] ([facility])[address] [place] [address] [place] [address] VIRB-TYPE NATRIURETIC PEPTIDEon 08-39-9235Hftuajrxyzs peptide B (Bld) [Mass/Vol]161 pg/mLHigh<=100ProMedica Barrington HospitalComment on above:Performed By: #### BNP ####[facility] ([address] [place] [address] VIRBEDSIDE GLUCOSEon 50-71-1792Yrfphow [Mass/Vol]177 mg/uFPxji35-71FkjWeslhmMercy Health Allen HospitalComment on above:Performed By: #### BEDG ####[facility] ([address], [id number] VIRGlucose [Mass/Vol]197 mg/mMZgut79-56OpsKcdzyaMercy Health Allen HospitalComment on above:Performed By: #### BEDG ####[facility] ([address], [id number] VIRGlucose [Mass/Vol]151 mg/dL [address] StreetComment on above:Performed By: #### BEDG ####[facility] ([address], [id number] VIRGlucose [Mass/Vol]185 mg/sDGkrh36-42KsvHqnqdj50 Martin StreetComment on above:Performed By: #### BEDG ####[facility] ([address], [id number] VIRCBC WITH AUTO DIFFERENTIALon 06-11-2025 BASOPHILS ABSOLUTE COUNT (10*3/UL) BY AUTOMATED COUNT0.0 10*3/uLNormal0.0-0.2 [facility] HospitalComment on above:Performed By: #### CBCA ####[facility] ([address], [id number] VIRBASOPHILS RELATIVE PERCENT BY AUTOMATED COUNT0.4 %NormalMercy Health Allen HospitalComment on above:Performed By: #### CBCA ####[facility] ([address], [id number] VIRCELLAVISION DIFFERENTIAL TYPE AUTOMATED DIFFERENTIALNormalProWhite Rock Medical CenterComment on above:Performed By: #### CBCA ####[facility] ([address], [id number] VIREosinophils (Bld) [#/Vol]0.1 10*3/uLNormal0.0-0.4 [facility] HospitalComment on above:Performed By: #### CBCA ####[facility] ([address], [id number] VIR EOSINOPHILS RELATIVE PERCENT BY AUTOMATED COUNT0.6 %NormalMercy Health Allen HospitalComment on above:Performed By: #### CBCA ####[facility] ([address], [id number] VIRErythrocyte distribution width (RBC) [Ratio]16.2 %High11.5-15Mer[facility] Allen HospitalComment on above: Performed By: #### CBCA ####[facility] ([address], [id number] VIRHematocrit (Bld) [Volume fraction]31.6 %Qsg26-16 [facility] HospitalCompromedica charles and [facility] on above:Performed By: #### CBCA ####[address], [id number] VIRHemoglobin (Bld) [Mass/Vol]10.4 g/dLLow11.7-15.5PTriHealth Bethesda Butler HospitalComment on above: Performed By: #### CBCA ####[facility] ([address], [id number] VIRLYMPHOCYTES ABSOLUTE COUNT (10*3/UL) BY AUTOMATED COUNT1.4 10*3/uLNormal1.0-3.5PTriHealth Bethesda Butler HospitalComment on above: Performed By: #### CBCA ####[facility] ([address] [place], [id number] VIRLYMPHOCYTES RELATIVE PERCENT BY AUTOMATED COUNT13.4 %NormalProWhite Rock Medical CenterComment on above:Performed By: #### CBCA ####[facility] ([address], [id number] VIRMCH (RBC) [Entitic mass]26.3 gvBjs84-95IfoSwrfyiWhite Rock Medical CenterComment on above:Performed By: #### CBCA ####[facility] ([address], [id number] VIRMCHC (RBC) [Mass/Vol]32.8 g/rNErzqld43-68 [facility] HospitalComment on above:Performed By: #### CBCA ####[facility] ([address], [id number] VIRMCV (RBC) [Entitic vol]80 rVPpfefq32-564YcvNbrdtw [facility]remont HospitalComment on above: Performed By: #### CBCA ####[facility] ([address], [id number] VIRMONOCYTES ABSOLUTE COUNT (10*3/UL) BY AUTOMATED COUNT0.9 10*3/uLNormal0.0-0.9Mer[facility] HospitalComment on above: Performed By: #### CBCA ####[facility] ([address], [id number] VIRMONOCYTES RELATIVE PERCENT BY AUTOMATED COUNT8.8 % NormalProWhite Rock Medical CenterComment on above:Performed By: #### CBCA ####[facility] ([address], [id number] VIRNEUTROPHILS ABSOLUTE COUNT BY AUTOMATED COUNT8.3 10*3/uLHigh1.5-6.6ProWhite Rock Medical CenterComment on above:Performed By: #### CBCA ####[facility] ([address], [id number] VIRNEUTROPHILS RELATIVE PERCENT BY AUTOMATED COUNT76.8 %NormalProWhite Rock Medical CenterComment on above:Performed By: #### CBCA ####[facility] ([facility])[address] [place] [address] A[place], [id number] VIRPlatelet mean volume (Bld) [Entitic vol]8.2 fLNormal7-12PTriHealth Bethesda Butler HospitalComment on above:Performed By: #### CBCA ####[facility] ([facility])[address] [place] [address] AVE.[place], [id number] VIRPlatelets (Bld) [#/Vol]318 10*3/kGRugiks682-411JcyKkzhvt [facility]remont HospitalComment on above:Performed By: #### CBCA ####[facility] ([address], [id number] VIRRBC COUNT3.94 X10E12/LNormal3.8-5.2PTriHealth Bethesda Butler HospitalComment on above:Performed By: #### CBCA ####[facility] ([facility])[address] [place] [address] [address], [id number] VIRWBC (Bld) [#/Vol]10.8 10*3/uLNormal4-11ProWhite Rock Medical CenterComment on above:Performed By: #### CBCA ####[facility] ([facility])[address] [place] [address] [place], [id number] VIRCK TOTALon 36-31-1345OCL98 U/CAforpy91-637GriZczrblWhite Rock Medical CenterComment on above:Performed By: #### CPK ####[facility] ([facility])[address] [place] [address] [place] [address] VIRCOMPREHENSIVE METABOLIC PANELon 96-01-7995Ynogewa [Mass/Vol]3.8 g/dL Normal3.2-5.3ProMedica Barrington HospitalComment on above:Performed By: #### CMP ####[facility] ([place] [address], [place] [address] VIRALP [Catalytic activity/Vol]128 U/XStukwa14-316XrvDwqwgcWhite Rock Medical CenterComment on above:Performed By: #### CMP ####[facility] ([address] [place] [address] VIRALT [Catalytic activity/Vol]14 U/LNormal<=31ProMedica [facility] Springs Surgical CenterComment on above: Performed By: #### CMP ####[facility] ([address] [place] [address] VIRAnion gap [Moles/Vol]15 mmol/LNormal5-15ProWhite Rock Medical CenterComment on above:Performed By: #### CMP ####[facility] ([address] [place] [address] VIRAST [Catalytic activity/Vol]25 U/LNormal<=41ProWhite Rock Medical CenterComment on above: Performed By: #### CMP ####[facility] ([address] [place] [address] VIRBilirubin [Mass/Vol]1.1 mg/dLNormal0.3-1.2 [facility] HospitalComment on above:Performed By: #### CMP ####[facility] ([address] [place] [address] VIRCalcium [Mass/Vol]9.1 mg/dLNormal8.5-10.5PTriHealth Bethesda Butler HospitalComment on above: Performed By: #### CMP ####[facility] ([place] [address] [place] [address] VIRChloride [Moles/Vol]98 mmol/KAvzgua64-868OjoIrvolm [facility]ont HospitalComment on above:Performed By: #### CMP ####[facility] [place] [address] VIRCO2 [Moles/Vol]20 mmol/EDhq53-73PfhGnxfns [facility] Surgical CenterComment on above:Performed By: #### CMP ####[facility] ([address], [place] [address] VIRCreatinine [Mass/Vol]1.32 mg/dLHigh0.40-1.00[facility] Comment on above:Result Comment: METHOD TRACEABLE TO IDMS STANDARDPerformed By: #### CMP ####[facility] ([address] [place] [address] VIRGFR/1.73 sq M.predicted among non-blacks MDRD (S/P/Bld) [Vol rate/Area]41 mL/min/{1.73_m2}Low>=60ProWhite Rock Medical CenterComment on above:Result Comment: eGFR not reported due to non-numeric value for Creatinine.Reported eGFR is based ontheCKD-EPI 2021 equation that doesnot use a race coefficient.Performed By: #### CMP ####[facility] ([address] [place] [address] VIRGlucose [Mass/Vol]209 mg/dLHigh 65-99ProWhite Rock Medical CenterComment on above:Performed By: #### CMP ####[facility] ([address], [place] [address] VIRPotassium [Moles/Vol]3.8 mmol/LNormal3.5-5.0[facility] Comment on above:Performed By: #### CMP ####[facility] ([address] [place] [address] VIRProtein [Mass/Vol]8.1 g/dLHigh 6.0-8.0Mer[facility] HospitalComment on above:Performed By: #### CMP ####[facility] ([address], [place] [address] VIRSodium [Moles/Vol]133 mmol/ZQyl466-951FndAnezca [facility]remont HospitalComment on above:Performed By: #### CMP ####[facility] ([address] [place] [address] VIRUrea nitrogen [Mass/Vol]19 mg/dLNormal5- [facility] HospitalComment on above:Performed By: #### CMP ####[facility] ([address] [place] [address] VIRCT ABDOMEN AND PELVIS WO CONTon 40-64-9971EO ABDOMEN AND PELVIS WO CONTNormal [facility] HospitalHEMOGLOBINon 18-32-8641Oyfhjqypqm (Bld) [Mass/Vol]10.3 g/dLLow11.7-15.5ProMedAlameda HospitalComment on above:Performed By: #### HGB ####[facility] ([address] [place] [address] VIRMAGNESIUMon 84-66-1697Clbtfpteg [Mass/Vol]1.7 mg/dLLow1.8-2.6[facility] HospitalComment on above:Performed By: #### MG ####[facility] ([address] [place] [address] VIRMagnesium [Mass/Vol]1.6 mg/dLLow1.8-2.6ProWhite Rock Medical CenterComment on above: Performed By: #### MG ####[facility] ([address] [place] [address] VIRPLATELET COUNTon 17-97-6227Tiyespye mean volume (Bld) [Entitic vol]8.7 fLNormal7-12PTriHealth Bethesda Butler HospitalComment on above: Performed By: #### PLTCT ####[facility] ([address] [place] [address] VIRPlatelets (Bld) [#/Vol]287 10*3/wQSwvbdc442-005 [facility] HospitalComment on above:Performed By: #### PLTCT ####[facility] ([facility])[address] [place] [address].[place] [address] VIRTHYROID PROFILE INCLUDES TSH FT4on 90-52-5785Zfmh T4 [Mass/Vol]1.59 ng/dLNormal0.61-1.60[facility] HospitalComment on above:Performed By: #### THYR ####[facility] ([address] VIRTSH2.32 uIU/mLNormal0.49-4.67[facility] Comment on above:Performed By: #### THYR ####[facility] ([address] VIRTROP I, HIGH SENSITIVITY 1 HOURon 58-88-4262XLQTPEAJ I, HIGH TFYGAEDKJUF18 ng/LNormal<16[facility] Comment on above:Performed By: #### TNIHS1 ####[facility] ([address] [address] VIRTROPONIN I, HIGH SENSITIVITY 0 HOURon 04-42-2848FCRWNWRP I, HIGH BCZDSLJPIFO87 ng/LNormal<16 [facility] HospitalComment on above:Performed By: #### TNIHS0 ####[facility] ([address] [place] [address] VIRXR CHEST 1 VWon 57-23-2420VC CHEST 1 [facility] CBC WITH AUTO DIFFERENTIALon 88-91-9076IOQQXSHSQ ABSOLUTE COUNT (10*3/UL) BY AUTOMATED COUNT0.1 10*3/uLNormal0.0-0.2PTriHealth Bethesda Butler HospitalComment on above:Performed By: #### CBCA ####[facility] ([address], [id number] VIRBASOPHILS RELATIVE PERCENT BY AUTOMATED COUNT 0.5 %NormalMercy Health Allen HospitalComment on above:Performed By: #### CBCA ####[facility] ([address], [id number] VIRCELLAVISION DIFFERENTIAL TYPEAUTOMATED DIFFERENTIALNormalProWhite Rock Medical CenterComment on above:Performed By: #### CBCA ####[facility] ([address], [id number] VIREosinophils (Bld) [#/Vol] 0.1 10*3/uLNormal0.0-0.4Mer[facility] Health Allen HospitalComment on above:Performed By: #### CBCA ####[facility] ([address], [id number] VIREOSINOPHILS RELATIVE PERCENT BY AUTOMATED COUNT0.8 % NormalMercy Health Allen HospitalComment on above:Performed By: #### CBCA ####[facility] ([address], [id number] VIRErythrocyte distribution width (RBC) [Ratio]15.9 %High11.5-15Mercy Health Allen HospitalComment on above:Performed By: #### CBCA ####[facility] ([address], [id number] VIRHematocrit (Bld) [Volume fraction]32.3 %Xdv16-99NbgRuspkuWhite Rock Medical CenterComment on above: Performed By: #### CBCA ####[facility] ([address], [id number] VIRHemoglobin (Bld) [Mass/Vol]10.7 g/dLLow11.7-15.5 [facility] Allen HospitalComment on above:Performed By: #### CBCA ####[facility] ([facility])[address] [place], [place] [address]E.[place], [id number] VIR LYMPHOCYTES ABSOLUTE COUNT (10*3/UL) BY AUTOMATED COUNT1.3 10*3/uLNormal1.0-3.5 [facility] Allen HospitalComment on above:Performed By: #### CBCA ####[facility] ([facility])[address] [place] [address] AVE.[place], [id number] VIR LYMPHOCYTES RELATIVE PERCENT BY AUTOMATED COUNT12.4 %Madison HealthComment on above:Performed By: #### CBCA ####[facility] ([facility])[address] [place] [address].[place], [id number] VIRMCH (RBC) [Entitic mass] 26.7 cjNrd81-82WgfKidkzdMercy Health Allen HospitalComment on above:Performed By: #### CBCA ####[facility] ([address] [place] [address] VIRMCHC (RBC) [Mass/Vol]33.3 g/eBSfopww32-21LsbUahplrMercy Health Allen Hospital Comment on above:Performed By: #### CBCA ####[facility] ([facility])[address] [place] [address].[place], [id number] VIRMCV (RBC) [Entitic vol]80 fLNormal 80-100Mer[facility] Health Allen HospitalComment on above:Performed By: #### CBCA ####[facility] ([facility])[address] [place], [place] [address]E.[place], [id number] VIRMONOCYTES ABSOLUTE COUNT (10*3/UL) BY AUTOMATED COUNT0.8 10*3/uLNormal0.0-0.9 [facility] Allen HospitalComment on above:Performed By: #### CBCA ####[facility] ([facility])[address] [place], [place] [address]E.[place], [id number] VIRMONOCYTES RELATIVE PERCENT BY AUTOMATED COUNT8.1 %NormalMercy Health Allen HospitalComment on above:Performed By: #### CBCA ####[facility] ([facility] [id number] VIRNEUTROPHILS ABSOLUTE COUNT BY AUTOMATED COUNT8.1 10*3/uLHigh1.5-6.6ProWhite Rock Medical CenterComment on above: Performed By: #### CBCA ####[facility] ([facility] [address], [id number] VIRNEUTROPHILS RELATIVE PERCENT BY AUTOMATED COUNT78.2 %NormalProWhite Rock Medical CenterComment on above:Performed By: #### CBCA ####[facility] ([address], [id number] VIRPlatelet mean volume (Bld) [Entitic vol]7.7 fLNormal7-12PTriHealth Bethesda Butler HospitalComment on above:Performed By: #### CBCA ####[facility] ([address], [id number] VIRPlatelets (Bld) [#/Vol]305 10*3/nZRvjkxj868-536UqmZlvpmd Fremont HospitalComment on above:Performed By: #### CBCA ####[facility] ([facility])[address] [place], [place] [address]T [address]VE.[place], [id number] VIRRBC COUNT4.02 X10E12/LNormal3.8-5.2PTriHealth Bethesda Butler HospitalComment on above:Performed By: #### CBCA ####[facility] ([address], [id number] VIRWBC (Bld) [#/Vol]10.3 10*3/uLNormal4-11Mer[facility] Health Allen HospitalComment on above:Performed By: #### CBCA ####[facility] ([facility] [address] [address] VIRCOMPREHENSIVE METABOLIC PANELon 72-70-3020Ayqdjql [Mass/Vol]3.7 g/dL Normal3.2-5.3PTriHealth Bethesda Butler HospitalComment on above:Performed By: #### CMP ####[facility] ([place] [address], [place] [address] VIRALP [Catalytic activity/Vol]130 U/MZeykyv64-237AvdFshndiWhite Rock Medical CenterComment on above:Performed By: #### CMP ####[facility] ([place] [address] [place] [address] VIRALT [Catalytic activity/Vol]15 U/LNormal<=31PTriHealth Bethesda Butler HospitalComment on above: Performed By: #### CMP ####[facility] ([place] [address] [place] [address] VIRAnion gap [Moles/Vol]15 mmol/LNormal5-15ProWhite Rock Medical CenterComment on above:Performed By: #### CMP ####[facility] ([place] [address] [place] [address] VIRAST [Catalytic activity/Vol]21 U/LNormal<=41ProWhite Rock Medical CenterComment on above: Performed By: #### CMP ####[facility] ([place] [address] [place] [address] VIRBilirubin [Mass/Vol]1.2 mg/dLNormal0.3-1.2 [facility] Allen HospitalComment on above:Performed By: #### CMP ####[facility] ([place] [address] [place] [address] VIRCalcium [Mass/Vol]9.6 mg/dLNormal8.5-10.5PTriHealth Bethesda Butler HospitalComment on above: Performed By: #### CMP ####[facility] ([place] [address] [place] [address] VIRChloride [Moles/Vol]97 mmol/GAxm26-050BjtMacgpgWhite Rock Medical CenterComment on above:Performed By: #### CMP ####[facility] ([address] [place] [address] VIRCO2 [Moles/Vol]23 mmol/OLxrvkw29-98YyvJlwzqj [facility]remont HospitalComment on above:Performed By: #### CMP ####[facility] ([address] [address] VIRCreatinine [Mass/Vol]1.36 mg/dLHigh0.40-1.00[facility] Comment on above:Result Comment: METHOD TRACEABLE TO IDMS STANDARDPerformed By: #### CMP ####[facility] ([address] [address] VIRGFR/1.73 sq M.predicted among non-blacks MDRD (S/P/Bld) [Vol rate/Area]40 mL/min/{1.73_m2}Low>=60Mercy Health Allen HospitalComment on above:Result Comment: eGFR not reported due to non-numeric value for Creatinine.Reported eGFR is based ontheCKD-EPI 2020 equation that doesnot use a race coefficient.Performed By: #### CMP ####[facility] ([address] [address] VIRGlucose [Mass/Vol]204 mg/dLHigh 65-99ProWhite Rock Medical CenterComment on above:Performed By: #### CMP ####[facility] ([address] [address] VIRPotassium [Moles/Vol]4.9 mmol/LNormal3.5-5.0[facility] Comment on above:Performed By: #### CMP ####[facility] ([address] [address] VIRProtein [Mass/Vol]8.3 g/dLHigh 6.0-8.0ProWhite Rock Medical CenterComment on above:Performed By: #### CMP ####[facility] ([address] [address] VIRSodium [Moles/Vol]135 mmol/ZRdtokx582-482ComRwlubz [facility] Comment on above:Performed By: #### CMP ####[facility] ([address] [place] [address] VIRUrea nitrogen [Mass/Vol]18 mg/dL Normal-27ProWhite Rock Medical CenterComment on above:Performed By: #### CMP ####[facility] ([address] [address] VIRPOCT NURSING URINE MACROSCOPIC UAon [id number] NURModerate AbnormalNegativeMercy Health Allen HospitalComment on above:Performed By: #### NUM ####[facility] ([address] [address] VIRBLOOD/HGB NURTraceAbnormalNegativeMercy Health Allen HospitalComment on above:Performed By: #### NUM ####[facility] ([address] [address] VIRGLUCOSE NURNegativeNormalNegativeMercy Health Allen HospitalComment on above:Performed By: #### NUM ####[facility] ([address] [place] [address] VIRKETONES NUR40 mg/dLAbnormalNegativeMercy Health Allen HospitalComment on above:Performed By: #### NUM ####[facility] ([address] [address] VIRLEUKOCYTE ESTERASE NURTraceAbnormalNegativeMercy Health Allen HospitalComment on above:Performed By: #### NUM ####[facility] ([address] [address] VIRNITRITE MARYJO NegativeNormalNegativeMercy Health Allen HospitalComment on above:Performed By: #### NUM ####[facility] ([address] [place] [address] VIRPH NUR5.6Ireigi9.0, 6.0, 6.5, 7.0, 7.5, 8.0, 8.5, 5.5 [facility] Allen HospitalComment on above:Performed By: #### NUM ####[facility] ([address] [place] [address] VIRPROTEIN FLP631 mg/dLAbnormalNegativeMercy Health Allen HospitalComment on above:Performed By: #### NUM ####[facility] ([address] [place] [address] VIRSPECIFIC GRAVITY MARYJO>=1.940Axiqedhs3.010, 1.015, 1.020, 1.025ProWhite Rock Medical CenterComment on above:Performed By: #### NUM ####[facility] ([address], [place] [address] VIRUROBILINOGEN NUR0.2 E.U./dLNormalMercy Health Allen HospitalComment on above:Performed By: #### NUM ####[facility] ([address] [place] [address] VIRURINE CULTUREon 85-80-5787Edvbottg identified Cx Nom (U)CULTURE RESULTS MULTIPLE SPECIES PRESENT. PROBABLE COLLECTION CONTAMINATION. SUGGEST REPEAT SPECIMEN.NormalProWhite Rock Medical CenterComment on above:Performed By: #### UC ####[facility] ([facility])[address] [facility] [address]TOSELECT [facility] [place] [address] VIRB-TYPE NATRIURETIC PEPTIDEon 63-96-5771Qowsturrolm peptide B (Bld) [Mass/Vol]85 pg/mLNormal<=100ProWhite Rock Medical CenterComment on above: Performed By: #### BNP ####[facility] ([address] [place] [address] VIRBASIC METABOLIC PANELon 79-38-0915Paxkl gap [Moles/Vol]10 mmol/LNormal5-15ProWhite Rock Medical CenterComment on above: Performed By: #### BMP ####[facility] ([address] [place] [address] VIRCalcium [Mass/Vol]9.3 mg/dLNormal8.5-10.5PTriHealth Bethesda Butler HospitalComment on above:Performed By: #### BMP ####[facility] ([address] [place] [address] VIRChloride [Moles/Vol]101 mmol/DHmjgte49-072ZfxDrxnksWhite Rock Medical CenterComment on above: Performed By: #### BMP ####[facility] ([address] [place] [address] VIRCO2 [Moles/Vol]24 mmol/XXbjekr69-92SnkPdgrygTriHealth Bethesda Butler HospitalComment on above:Performed By: #### BMP ####[facility] ([address] [address] VIRCreatinine [Mass/Vol]1.31 mg/dLHigh0.40-1.00ProWhite Rock Medical CenterComment on above: Result Comment: METHOD TRACEABLE TO IDMS STANDARDPerformed By: #### BMP ####[facility] ([address] [address] VIRGFR/1.73 sq M.predicted among non-blacks MDRD (S/P/Bld) [Vol rate/Area] 42 mL/min/{1.73_m2}Low>=60ProWhite Rock Medical CenterComment on above:Result Comment: eGFR not reported due to non-numeric value for Creatinine.Reported eGFR is based ontheCKD-EPI 2020 equation that doesnot use a race coefficient. Performed By: #### BMP ####[facility] ([address] [place] [address] VIRGlucose [Mass/Vol]174 mg/cDApfr81-82RdhJddwhqWhite Rock Medical CenterComment on above:Performed By: #### BMP ####[facility] ([address] [place] [address] VIRPotassium [Moles/Vol]4.2 mmol/LNormal3.5-5.0ProWhite Rock Medical CenterComment on above: Performed By: #### BMP ####[facility] ([address] [place] [address] VIRSodium [Moles/Vol]135 mmol/ERqzplo804-948IbrEqcnnu [facility]remont HospitalComment on above:Performed By: #### BMP ####[address] [place] [address] VIRUrea nitrogen [Mass/Vol]14 mg/dLNormal5-27ProWhite Rock Medical CenterComment on above:Performed By: #### BMP ####[facility] ([address] [place] [address] VIRCBC WITH AUTO DIFFERENTIALon [id number] ABSOLUTE COUNT (10*3/UL) BY AUTOMATED COUNT0.0 10*3/uLNormal0.0-0.2[facility] Surgical CenterCompromedica charles and [facility] on above:Performed By: #### CBCA ####[facility] ([address] [id number] VIRBASOPHILS RELATIVE PERCENT BY AUTOMATED COUNT0.5 %NormalProWhite Rock Medical CenterComment on above:Performed By: #### CBCA ####[facility] [address] [id number] VIRCELLAVISION DIFFERENTIAL TYPEAUTOMATED DIFFERENTIALNormalProWhite Rock Medical CenterComment on above:Performed By: #### CBCA ####[facility] ([address] [address] VIREosinophils (Bld) [#/Vol]0.2 10*3/uLNormal0.0-0.4Mer[facility] Allen HospitalComment on above:Performed By: #### CBCA ####[facility] ([address], [id number] VIREOSINOPHILS RELATIVE PERCENT BY AUTOMATED COUNT2.4 %NormalProWhite Rock Medical CenterComment on above: Performed By: #### CBCA ####[facility] ([address], [id number] VIRErythrocyte distribution width (RBC) [Ratio]15.7 % High11.5-15ProWhite Rock Medical CenterComment on above:Performed By: #### CBCA ####[facility] ([address], [id number] VIRHematocrit (Bld) [Volume fraction]32.1 %Vky15-01NajTortacMercy Health Allen Hospital Comment on above:Performed By: #### CBCA ####[facility] ([address], [id number] VIRHemoglobin (Bld) [Mass/Vol]10.5 g/dL Low11.7-15.5PTriHealth Bethesda Butler HospitalComment on above:Performed By: #### CBCA ####[facility] ([address], [id number] VIRLYMPHOCYTES ABSOLUTE COUNT (10*3/UL) BY AUTOMATED COUNT1.5 10*3/uLNormal 1.0-3.5PTriHealth Bethesda Butler HospitalComment on above:Performed By: #### CBCA ####[facility] ([address], [id number] VIRLYMPHOCYTES RELATIVE PERCENT BY AUTOMATED COUNT18.7 %NormalProWhite Rock Medical CenterComment on above:Performed By: #### CBCA ####[facility] ([address], [id number] VIRMCH (RBC) [Entitic mass] 26.4 krUnt34-47RqhNpmzayWhite Rock Medical CenterComment on above:Performed By: #### CBCA ####[facility] ([address] [place] [address] VIRMCHC (RBC) [Mass/Vol]32.7 g/jUJvdkxn93-10CiyKxnnqqMercy Health Allen Hospital Comment on above:Performed By: #### CBCA ####[facility] ([address], [id number] VIRMCV (RBC) [Entitic vol]81 fLNormal 80-100ProWhite Rock Medical CenterComment on above:Performed By: #### CBCA ####[facility] ([address], [id number] VIRMONOCYTES ABSOLUTE COUNT (10*3/UL) BY AUTOMATED COUNT0.7 10*3/uLNormal0.0-0.9 [facility] HospitalComment on above:Performed By: #### CBCA ####[facility] ([address], [id number] VIRMONOCYTES RELATIVE PERCENT BY AUTOMATED COUNT9.1 %NormalProWhite Rock Medical CenterComment on above:Performed By: #### CBCA ####[facility] ([address], [id number] VIRNEUTROPHILS ABSOLUTE COUNT BY AUTOMATED COUNT5.6 10*3/uLNormal1.5-6.6ProWhite Rock Medical CenterComment on above:Performed By: #### CBCA ####[facility] ([address], [id number] VIRNEUTROPHILS RELATIVE PERCENT BY AUTOMATED COUNT69.3 %NormalProWhite Rock Medical CenterComment on above:Performed By: #### CBCA ####[facility] ([facility])[address] [place] [address] [place] [address] VIRPlatelet mean volume (Bld) [Entitic vol]8.0 fLNormal7-12PTriHealth Bethesda Butler HospitalComment on above:Performed By: #### CBCA ####[facility] ([facility])[address] [place] [address] [address]VE.[place], [id number] VIRPlatelets (Bld) [#/Vol]317 10*3/jPGhbprp967-278DgiRhsqzo [facility]ont HospitalComment on above: Performed By: #### CBCA ####[facility] ([address] [id number] VIRRBC COUNT3.98 X10E12/LNormal3.8-5.2PTriHealth Bethesda Butler HospitalComment on above:Performed By: #### CBCA ####[facility] ([address] [id number] VIRWBC (Bld) [#/Vol] 8.1 10*3/uLNormal4-11ProWhite Rock Medical CenterComment on above:Performed By: #### CBCA ####[facility] ([address] [id number] VIRMAGNESIUMon 86-80-4969Kqgilobry [Mass/Vol]1.8 mg/dL Normal1.8-2.6ProWhite Rock Medical CenterComment on above:Performed By: #### MG ####[facility] ([facility])[address] [place] [address].[facility] [place] [address] VIRPOCT NURSING URINE MACROSCOPIC UAon 73-28-7620HGIOCEKEL NURNegativeNormal NegativeProWhite Rock Medical CenterComment on above:Performed By: #### NUM ####[facility] ([facility] [address], [place] [address] VIRBLOOD/HGB NURNegativeNormalNegativeProWhite Rock Medical CenterComment on above:Performed By: #### NUM ####[facility] ([facility])[address] [place], [place] [address] [place] [address] VIRGLUCOSE NURNegativeNormalNegativeProWhite Rock Medical CenterComment on above:Performed By: #### NUM ####[facility] ([address] [place] [address] VIRKETONES NURTrace AbnormalNegativeMercy Health Allen HospitalComment on above:Performed By: #### NUM ####[facility] ([address] [place] [address] VIRLEUKOCYTE ESTERASE NURLargeAbnormalNegativePike Community Hospital on above:Performed By: #### NUM ####[facility] ([address] [place] [address] VIRNITRITE NURNegativeNormalNegative [facility] HospitalComment on above:Performed By: #### NUM ####[facility] ([address] [place] [address] VIRPH NUR7.0 Normal5.0, 6.0, 6.5, 7.0, 7.5, 8.0, 8.5, 5.5ProMedica Highland Springs Surgical CenterComment on above:Performed By: #### NUM ####[facility] ([address] [place] [address] VIRPROTEIN NURNegativeNormalNegativeMercy Health Allen HospitalComment on above:Performed By: #### NUM ####[facility] ([address] [place] [address] VIRSPECIFIC GRAVITY NUR1.615Vfhgud7.010, 1.015, 1.020, 1.025Mercy Health Allen HospitalComment on above:Performed By: #### NUM ####[facility] ([address] [place] [address] VIRUROBILINOGEN NUR0.2 E.U./dLNormalProWhite Rock Medical CenterComment on above:Performed By: #### NUM ####[facility] ([address] [address] VIRTHYROID PROFILE INCLUDES TSH FT4on [id number] T4 [Mass/Vol]1.21 ng/dLNormal0.61-1.60 [facility] Allen HospitalComment on above:Performed By: #### THYR ####[address] VIRTSH2.66 uIU/mLNormal0.49-4.67Mer[facility] Allen HospitalComment on above:Performed By: #### THYR ####[address] VIRTROP I, HIGH SENSITIVITY 1 HOURon [id number] I, HIGH SENSITIVITY7 ng/LNormal<16ProWhite Rock Medical CenterComment on above: Performed By: #### TNIHS1 ####[address] [address] VIRTROPONIN I, HIGH SENSITIVITY 0 HOURon 06-08-2025 TROPONIN I, HIGH SENSITIVITY7 ng/LNormal<16ProWhite Rock Medical CenterComment on above:Performed By: #### TNIHS0 ####[address] [address] VIRXR CHEST 1 VWon [id number] CHEST 1 VW NormalProWhite Rock Medical CenterXR Pelvis 1 or 2 Viewson [id number] HealthcareImaging Result: AP Pelvis Osteopenia noted Mild distraction of less trochanteric avulsion fracture. Soft tissue vascular calcifications are prominent No effusion. Remote sclerotic changes from pubic ramus fracture bilaterally with mild degenerative changes of hip Impression: stable appearing right hip lesser trochanteric avulsion fracture.[facility] HealthcareRadiology Study observation (narrative) [facility] HealthcareXR HIP RT 2-3 VIEWS W OR WO PELVISon [id number] HIP RT 2-3 VIEWS W OR WO PELVISNormalProMedica Highland Springs Surgical CenterCT HEAD WO IV CONTRASTon [id number] HEAD WO IV CONTRASTCT HEAD WO IV [...] Electronically signed: Sukhjinder Ferrara. 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, also needs shunt series x raysame dayFollow-Upon [id number] Cuca Dee 1945 F Date Provider Department Center 05/22/2025 148-DIANE, [facility] SURG Second Fl Family History Problem Relation Age of Onset Diabetes Mother Hypertension Father Coronary artery disease Father Family Status - Relation Status Age at Mother Father Level of Service:21660 RI OFFICE/OUTPATIENT ESTABLISHED MOD MDM 30 [facility] CenterBEDSIDE GLUCOSEon 50-04-0507Sqqggyo [Mass/Vol]320 mg/uURlga49-48PjdBusodhMercy Health Allen HospitalComment on above:Performed By: #### BEDG ####[facility] ([facility])[address] [place] [address] AVE.[place], [id number] VIRBedside Glucose *Place/Obtain serum glucose if >500 per glucometer.on 04-13-9138Wtfmobh [Mass/Vol]320 mg/lGCtch67 - 99 mg/dLSumma Health Akron CampusInterpretation and review of laboratory resultsAbnoFulton County Medical CenterCBC WITH AUTO DIFFERENTIALon 05-15-2025 BASOPHILS ABSOLUTE COUNT (10*3/UL) BY AUTOMATED COUNT0.0 10*3/uLNormal0.0-0.2 [facility] HospitalComment on above:Performed By: #### CBCA ####[facility] ([facility])[address] [place] [address] AVE.[place], [id number] VIRBASOPHILS RELATIVE PERCENT BY AUTOMATED COUNT0.5 %NormalMercy Health Allen HospitalComment on above:Performed By: #### CBCA ####[facility] ([facility])[address] [place] [address] AVE.[place], [id number] VIRCELLAVISION DIFFERENTIAL TYPE AUTOMATED DIFFERENTIALNoCleveland Clinic Mercy HospitalComment on above:Performed By: #### CBCA ####[facility] ([facility])[address] [place] [address].[place], [id number] VIREosinophils (Bld) [#/Vol]0.3 10*3/uLNormal0.0-0.4 [facility]rington HospitalComment on above:Performed By: #### CBCA ####[facility] ([address], [id number] VIR EOSINOPHILS RELATIVE PERCENT BY AUTOMATED COUNT3.4 %NormalMercy Health Allen HospitalComment on above:Performed By: #### CBCA ####[facility] ([address], [id number] VIRErythrocyte distribution width (RBC) [Ratio]15.5 %High11.5-15ProWhite Rock Medical CenterComment on above: Performed By: #### CBCA ####[facility] ([address], [id number] VIRHematocrit (Bld) [Volume fraction]30.0 %Mbm71-66 [facility] HospitalComment on above:Performed By: #### CBCA ####[facility] ([address], [id number] VIRHemoglobin (Bld) [Mass/Vol]10.1 g/dLLow11.7-15.5PTriHealth Bethesda Butler HospitalComment on above: Performed By: #### CBCA ####[facility] ([address], [id number] VIRLYMPHOCYTES ABSOLUTE COUNT (10*3/UL) BY AUTOMATED COUNT1.7 10*3/uLNormal1.0-3.5PTriHealth Bethesda Butler HospitalComment on above: Performed By: #### CBCA ####[facility] ([address], [id number] VIRLYMPHOCYTES RELATIVE PERCENT BY AUTOMATED COUNT19.9 %NormalMercy Health Allen HospitalComment on above:Performed By: #### CBCA ####[facility] ([address], [id number] VIRMCH (RBC) [Entitic mass]27.8 hcIghoep48-08PlySpdykjWhite Rock Medical CenterComment on above:Performed By: #### CBCA ####[facility] ([address], [id number] VIRMCHC (RBC) [Mass/Vol]33.5 g/dLNormal 32-36ProWhite Rock Medical CenterComment on above:Performed By: #### CBCA ####[facility] ([address], [id number] VIRMCV (RBC) [Entitic vol]83 xSAohjaa66-379NzuTmzjbl Fremont HospitalComment on above:Performed By: #### CBCA ####[facility] ([address], [id number] VIRMONOCYTES ABSOLUTE COUNT (10*3/UL) BY AUTOMATED COUNT0.8 10*3/uLNormal0.0-0.9[facility] Allen HospitalComment on above:Performed By: #### CBCA ####[facility] ([address], [id number] VIRMONOCYTES RELATIVE PERCENT BY AUTOMATED COUNT 9.9 %NormalMercy Health Allen HospitalComment on above:Performed By: #### CBCA ####[facility] ([address], [id number] VIRNEUTROPHILS ABSOLUTE COUNT BY AUTOMATED COUNT5.7 10*3/uLNormal1.5-6.[address] HelenaComment on above:Performed By: #### CBCA ####[facility] ([address], [id number] VIR NEUTROPHILS RELATIVE PERCENT BY AUTOMATED COUNT66.3 %NormalMercy Health Allen HospitalComment on above:Performed By: #### CBCA ####[facility] ([address], [id number] VIRPlatelet mean volume (Bld) [Entitic vol]8.7 fLNormal7-12PTriHealth Bethesda Butler HospitalComment on above: Performed By: #### CBCA ####[facility] ([address], [id number] VIRPlatelets (Bld) [#/Vol]196 10*3/fTBvmkeq929-612 [facility] HospitalComment on above:Performed By: #### CBCA ####[facility] ([facility])[address] [place] [address] AVE.[place], [id number] VIRRBC COUNT 3.62 X10E12/LLow3.8-5.2PTriHealth Bethesda Butler HospitalComment on above:Performed By: #### CBCA ####[facility] ([facility])[address] [place] [address] AVE.[place], [id number] VIRWBC (Bld) [#/Vol]8.6 10*3/uLNormal4-11Mer[facility] Allen HospitalComment on above:Performed By: #### CBCA ####[facility] ([facility])[address] [place] [address] AVE.[place], [id number] VIRCBC auto differentialon [id number] (Bld) [#/Vol]0 10*3/uL0.0 - 0.2 10*3/uLProMedica Health SystemBasophils/100 WBC (Bld)0.5 %[facility] Cross HospitaledicLakeview Hospital SystemDifferential cell count method Nom (Bld)AUTOMATED DIFFERENTIALSumma Health Akron CampusEosinophils (Bld) [#/Vol]0.3 10*3/uL0.0 - 0.4 10*3/uLProMedict Health SystemEosinophils/100 WBC (Bld)3.4 %ProMedica Health SystemErythrocyte distribution width (RBC) [Ratio] 15.5 %High11.5 - 15 %ProMedica Health SystemHematocrit (Bld) [Volume fraction]30 %Low35 - 47 %ProMedica Health SystemHemoglobin (Bld) [Mass/Vol]10.1 g/dLLow11.7 - 15.5 g/dLSumma Health Akron CampusInterpretation and review of laboratory resultsAbnormalSumma Health Akron CampusLymphocytes (Bld) [#/Vol]1.7 10*3/uL1.0 - 3.5 10*3/uLSumma Health Akron CampusLymphocytes/100 WBC (Bld)19.9 %[facility] CampusMCH (RBC) [Entitic mass]27.8 pg27 - 34 [facility] MCHC (RBC) [Mass/Vol]33.5 g/dL32 - 36 g/dLSumma Health Akron CampusMCV (RBC) [Entitic vol]83 fL80 - 100 [facility] HospitalMonocytes (Bld) [#/Vol]0.8 10*3/uL0.0 - 0.9 10*3/uLSumma Health Akron CampusMonocytes/100 WBC (Bld)9.9 % [facility] CampusNeutrophils (Bld) [#/Vol]5.7 10*3/uL1.5 - 6.6 10*3/uL [facility] CampusNeutrophils/100 WBC (Bld)66.3 %[facility] Platelet mean volume (Bld) [Entitic vol]8.7 fL7 - 12 [facility] Platelets (Bld) [#/Vol]196 10*3/uLSumma Health Akron CampusRBC (Bld) [#/Vol]3.62 10*6/uLLowSumma Health Akron CampusWBC LM Ql (Sput)8.6En[facility] Hospital of HarmarvilleCOMPREHENSIVE METABOLIC PANELon 11-98-8887Rovnecv [Mass/Vol]2.9 g/dLLow3.2-5.3PTriHealth Bethesda Butler HospitalComment on above:Performed By: #### CMP ####[facility] ([facility])[address] [place] [address] VIRALP [Catalytic activity/Vol]125 U/JColvtk52-601 [facility] HospitalComment on above:Performed By: #### CMP ####[facility] ([facility] [place] [address] VIRALT [Catalytic activity/Vol]14 U/LNormal<=31PTriHealth Bethesda Butler HospitalComment on above:Performed By: #### CMP ####[facility] ([place] [address] [place] [address] VIRAnion gap [Moles/Vol]8 mmol/LNormal5-15 [facility] HospitalComment on above:Performed By: #### CMP ####[facility] ([place] [address] [address] VIRAST [Catalytic activity/Vol]17 U/LNormal<=41Pro[facility] Surgical CenterComment on above:Performed By: #### CMP ####[facility] ([place] [address]J[address] [place] [address] VIRBilirubin [Mass/Vol]0.6 mg/dLNormal0.3-1.2 [facility] HospitalComment on above:Performed By: #### CMP ####[facility] ([place] [address] [place] [address] VIRCalcium [Mass/Vol]9.4 mg/dLNormal8.5-10.5PTriHealth Bethesda Butler HospitalComment on above: Performed By: #### CMP ####[facility] ([place] [address] [place] [address] VIRChloride [Moles/Vol]102 mmol/JObauva90-224 [facility] HospitalComment on above:Performed By: #### CMP ####[facility] ([place] [address] [place] [address] VIRCO2 [Moles/Vol]26 mmol/UUflqdn73-77CvmIqaiapTriHealth Bethesda Butler HospitalComment on above: Performed By: #### CMP ####[facility] ([place] [address] [place] [address] VIRCreatinine [Mass/Vol]1.20 mg/dLHigh0.40-1.00 [facility] HospitalComment on above:Result Comment: METHOD TRACEABLE TO IDMS STANDARDPerformed By: #### CMP ####[facility] ([address] [address] VIRGFR/1.73 sq M.predicted among non- blacks MDRD (S/P/Bld) [Vol rate/Area]46 mL/min/{1.73_m2}Low>=60ProWhite Rock Medical CenterComment on above:Result Comment: eGFR not reported due to non-numeric value for Creatinine.Performed By: #### CMP ####[facility] ([address] [address] VIRGlucose [Mass/Vol]152 mg/zXQeyd28-87GqsUedyvhWhite Rock Medical CenterComment on above:Performed By: #### CMP ####[facility] ([address] [address] VIRPotassium [Moles/Vol]4.6 mmol/LNormal3.5-5.0[facility] Comment on above:Performed By: #### CMP ####[facility] ([address] [address] VIRProtein [Mass/Vol]7.0 g/dLNormal 6.0-8.0Mer[facility] HospitalComment on above:Performed By: #### CMP ####[facility] ([address] [address] VIRSodium [Moles/Vol]136 mmol/HSjrdzd714-082HciJscgldMercy Health Allen Hospital Comment on above:Performed By: #### CMP ####[facility] ([address] [address] VIRUrea nitrogen [Mass/Vol]22 mg/dL Normal5-27ProWhite Rock Medical CenterComment on above:Performed By: #### CMP ####[facility] ([facility])[address] [facility].[place], [place] [address] VIRComprehensive metabolic panelon 35-15-1271Nlyuzfv [Mass/Vol]2.9 g/dLLow 3.2 - 5.3 g/dLProDale Medical Center Health SystemALP [Catalytic activity/Vol]125 U/L39 - 130 U/LProMedica Health SystemALT No additional P-5'-P [Catalytic activity/Vol]14 U/LNINF - 31 U/LProMedica Health SystemAnion gap [Moles/Vol]8 mmol/L5 - 15 mmol/LProMedica Health SystemAST [Catalytic activity/Vol]17 U/LNINF - 41 U/L [facility] SystemBilirubin [Mass/Vol]0.6 mg/dL0.3 - 1.2 mg/dLProMercy Health Fairfield Hospital SystemCalcium [Mass/Vol]9.4 mg/dL8.5 - 10.5 mg/dLProMercy Health Fairfield Hospital System Chloride [Moles/Vol]102 mmol/L98 - 109 mmol/LProMedica Health SystemCO2 [Moles/Vol]26 mmol/L22 - 32 mmol/LProMedica Health SystemCreatinine [Mass/Vol] 1.2 mg/dLHigh0.40 - 1.00 mg/dLWright-Patterson Medical Center SystemComment on above:METHOD TRACEABLE TO IDMS STANDARDEGFR Non-Race Yrerdjlyl54Qoh- PINMercy Health St. [facility] SystemComment on above:eGFR not reported due to non-numeric value for Creatinine.Glucose [Mass/Vol]152 mg/jGInjn09 - 99 mg/dLWright-Patterson Medical Center System Interpretation and review of laboratory resultsAbnormalProMercy Health Fairfield Hospital System Potassium [Moles/Vol]4.6 mmol/L3.5 - 5.0 mmol/LProMedica Health SystemProtein [Mass/Vol]7 g/dL6.0 - 8.0 g/dLProDale Medical Center Health SystemSodium [Moles/Vol]136 mmol/L134 - 146 mmol/LProMedica Health SystemUrea nitrogen [Mass/Vol]22 mg/dL5 - 27 mg/dLW[facility]-Patterson Medical Center SystemProOur Lady Of Mercy Hospitalca [facility] SystemMAGNESIUMon 05-15-2025 Magnesium [Mass/Vol]2.0 mg/dLNormal1.8-2.6[facility] HospitalComment on above:Performed By: #### MG ####[facility] ([address] [address] VIRMagnesiumon 86-23-6282Czrssohbsqzsot and review of laboratory resultsNormalSumma Health Akron CampusMagnesium [Mass/Vol]2 mg/dL1.8 - 2.6 mg/dLDepartment of Veterans Affairs [facility] SystemSST TOPon 64-46-3033Jkfhu TubeAuto ResultedDepartment of Veterans Affairs [facility] System BEDSIDE GLUCOSEon 91-06-6398Ojahfly [Mass/Vol]286 mg/hGTrdw56-47IjrBcgxxsMercy Health Allen HospitalComment on above:Performed By: #### BEDG ####[facility] ([address] VIRGlucose [Mass/Vol] 308 mg/oSLipl22-84YaxTtngyeWhite Rock Medical CenterComment on above:Performed By: #### BEDG ####[facility]NDan[facility] ([address] [address] VIRGlucose [Mass/Vol]223 mg/gMIjvc59-61DtkRmlckqMercy Health Allen HospitalComment on above:Performed By: #### BEDG ####[facility] ([address] VIRBedside Glucose *Place/Obtain serum glucose if >500 per glucometer.on 56-36-9067Wtlcqkz [Mass/Vol]286 mg/fSHwhg42 - 99 mg/dLWright-Patterson Medical Center SystemInterpretation and review of laboratory results AbnormalProAsc[facility] SystemGlucose [Mass/Vol]308 mg/qYOluo88 - 99 mg/dLWright-Patterson Medical Center SystemInterpretation and review of laboratory resultsAbnormalProAscension [facility] SystemGlucose [Mass/Vol]223 mg/iCOyul61 - 99 mg/dLWright-Patterson Medical Center SystemInterpretation and review of laboratory resultsAbnormalProMedica Health SystemProMedica Health SystemCB WITH AUTO DIFFERENTIALon 08-89-4222HJSSIDLOB ABSOLUTE COUNT (10*3/UL) BY AUTOMATED COUNT0.1 10*3/uLNormal0.0-0.2PTriHealth Bethesda Butler HospitalComment on above:Performed By: #### CBCA ####[facility] ([address], [id number] VIRBASOPHILS RELATIVE PERCENT BY AUTOMATED COUNT 0.7 %Madison HealthComment on above:Performed By: #### CBCA ####[facility] ([address], [id number] VIRCELLAVISION DIFFERENTIAL TYPEAUTOMATED DIFFERENTIALNoCleveland Clinic Mercy HospitalComment on above:Performed By: #### CBCA ####[facility] ([address], [id number] VIREosinophils (Bld) [#/Vol] 0.5 10*3/uLHigh0.0-0.4Mer[facility] Allen HospitalComment on above:Performed By: #### CBCA ####[facility] ([address], [id number] VIREOSINOPHILS RELATIVE PERCENT BY AUTOMATED COUNT6.6 % NormalMercy Health Allen HospitalComment on above:Performed By: #### CBCA ####[facility] ([address], [id number] VIRErythrocyte distribution width (RBC) [Ratio]15.5 %High11.5-15Mer[facility] Allen HospitalComment on above:Performed By: #### CBCA ####[facility] ([address], [id number] VIRHematocrit (Bld) [Volume fraction]30.6 %Aeo05-50WegWpfixuWhite Rock Medical CenterComment on above: Performed By: #### CBCA ####[facility] ([facility])[address] [place], [place] [address]E.[place], [id number] VIRHemoglobin (Bld) [Mass/Vol]10.3 g/dLLow11.7-15.5 [facility] HospitalComment on above:Performed By: #### CBCA ####[facility] ([facility])[address] [place] [address] A[place], [id number] VIR LYMPHOCYTES ABSOLUTE COUNT (10*3/UL) BY AUTOMATED COUNT1.8 10*3/uLNormal1.0-3.5 [facility] HospitalComment on above:Performed By: #### CBCA ####[facility] ([address], [id number] VIR LYMPHOCYTES RELATIVE PERCENT BY AUTOMATED COUNT23.9 %NormalProWhite Rock Medical CenterComment on above:Performed By: #### CBCA ####[facility] ([address], [id number] VIRMCH (RBC) [Entitic mass] 28.1 mrZoaqqa64-07MnrObcesuMercy Health Allen HospitalComment on above:Performed By: #### CBCA ####[facility] ([address] [place] [address] VIRMCHC (RBC) [Mass/Vol]33.5 g/wSQdavey39-31RfcCahuzmMercy Health Allen Hospital Comment on above:Performed By: #### CBCA ####[facility] ([address], [id number] VIRMCV (RBC) [Entitic vol]84 fLNormal 80-100ProWhite Rock Medical CenterComment on above:Performed By: #### CBCA ####[facility] ([facility])[address] [place], [place] [address]E.[place], [id number] VIRMONOCYTES ABSOLUTE COUNT (10*3/UL) BY AUTOMATED COUNT1.0 10*3/uLHigh0.0-0.9 [facility] HospitalComment on above:Performed By: #### CBCA ####[facility] ([facility])[address] [place], [place] [address]T [address]VE.[place], [id number] VIRMONOCYTES RELATIVE PERCENT BY AUTOMATED COUNT12.9 %NormalMercy Health Allen HospitalComment on above:Performed By: #### CBCA ####[facility] ([address], [id number] VIRNEUTROPHILS ABSOLUTE COUNT BY AUTOMATED COUNT4.2 10*3/uLNormal1.5-6.6Mer[facility] HospitalComment on above:Performed By: #### CBCA ####[facility] ([address], [id number] VIRNEUTROPHILS RELATIVE PERCENT BY AUTOMATED COUNT55.9 %NormalMercy Health Allen HospitalComment on above:Performed By: #### CBCA ####[facility] ([address] [place] [address] VIRPlatelet mean volume (Bld) [Entitic vol]8.7 fLNormal7-12PTriHealth Bethesda Butler HospitalComment on above:Performed By: #### CBCA ####[facility] ([address], [id number] VIRPlatelets (Bld) [#/Vol]166 10*3/gUPyekgk626-940BrfNjrvrv [facility]remont HospitalComment on above: Performed By: #### CBCA ####[facility] ([address], [id number] VIRRBC COUNT3.65 X10E12/LLow3.8-5.2PTriHealth Bethesda Butler HospitalComment on above:Performed By: #### CBCA ####[facility] ([address], [id number] VIRWBC (Bld) [#/Vol]7.6 10*3/uLNormal4-11[facility] HospitalComment on above:Performed By: #### CBCA ####[facility] ([facility] [place] [address].[place] [address] VIRCBC auto differentialon [id number] (Bld) [#/Vol]0.1 10*3/uL0.0 - 0.2 10*3/uLSumma Health Akron CampusBasophils/100 WBC (Bld)0.7 %[facility] CampusDifferential cell count method Nom (Bld)AUTOMATED DIFFERENTIAL [facility] CampusEosinophils (Bld) [#/Vol]0.5 10*3/uLHigh0.0 - 0.4 10*3/uL [facility] CampusEosinophils/100 WBC (Bld)6.6 %[facility] Erythrocyte distribution width (RBC) [Ratio]15.5 %High11.5 - 15 %[facility] CampusHematocrit (Bld) [Volume fraction]30.6 %Low35 - 47 %[facility] CampusHemoglobin (Bld) [Mass/Vol]10.3 g/dLLow11.7 - 15.5 g/dLSumma Health Akron CampusInterpretation and review of laboratory resultsAbnormalSumma Health Akron CampusLymphocytes (Bld) [#/Vol]1.8 10*3/uL1.0 - 3.5 10*3/uLSumma Health Akron CampusLymphocytes/100 WBC (Bld)23.9 %[facility] CampusMCH (RBC) [Entitic mass]28.1 pg27 - 34 [facility] HospitalMCHC (RBC) [Mass/Vol]33.5 g/dL32 - 36 g/dLSumma Health Akron CampusMCV (RBC) [Entitic vol]84 fL80 - 100 fL [facility] CampusMonocytes (Bld) [#/Vol]1 10*3/uLHigh0.0 - 0.9 10*3/uL [facility] CampusMonocytes/100 WBC (Bld)12.9 %[facility] Neutrophils (Bld) [#/Vol]4.2 10*3/uL1.5 - 6.6 10*3/[facility] Neutrophils/100 WBC (Bld)55.9 %[facility] SystemPlatelet mean volume (Bld) [Entitic vol]8.7 fL7 - 12 [facility] SystemPlatelets (Bld) [#/Vol]166 10*3/uLWright-Patterson Medical Center SystemRBC (Bld) [#/Vol]3.65 10*6/uLLowSumma Health Akron CampusWBC LM Ql (Sput)7.6[facility] COMPREHENSIVE METABOLIC PANELon [id number] [Mass/Vol]2.9 g/dLLow3.2-5.3 [facility] HospitalComment on above:Performed By: #### CMP ####[facility] ([address] [place] [address] VIRALP [Catalytic activity/Vol]128 U/IAouzqb66-668MtrYrbrpiMercy Health Allen HospitalComment on above:Performed By: #### CMP ####[facility] ([address] [place] [address] VIRALT [Catalytic activity/Vol]14 U/LNormal<=31 [facility] HospitalComment on above:Performed By: #### CMP ####[facility] ([address] [place] [address] VIRAnion gap [Moles/Vol]9 mmol/LNormal5-15[facility] HospitalComment on above: Performed By: #### CMP ####[facility] ([address] [place] [address] VIRAST [Catalytic activity/Vol]23 U/LNormal<=41 [facility] HospitalComment on above:Performed By: #### CMP ####[facility] ([address] [place] [address] VIRBilirubin [Mass/Vol]0.6 mg/dLNormal0.3-1.2PTriHealth Bethesda Butler HospitalComment on above: Performed By: #### CMP ####[facility] ([address] [place] [address] VIRCalcium [Mass/Vol]9.0 mg/dLNormal8.5-10.5PTriHealth Bethesda Butler HospitalComment on above:Performed By: #### CMP ####[facility] ([address] [address] VIRChloride [Moles/Vol]108 mmol/AUsrxjh75-794WuwMpkxhkWhite Rock Medical CenterComment on above: Performed By: #### CMP ####[address] [address] VIRCO2 [Moles/Vol]22 mmol/HMljnzl55-38OxeAsgdbvTriHealth Bethesda Butler HospitalComment on above:Performed By: #### CMP ####[facility] ([address] [address] VIRCreatinine [Mass/Vol]1.30 mg/dLHigh0.40-1.00ProWhite Rock Medical CenterComment on above: Result Comment: METHOD TRACEABLE TO IDMS STANDARDPerformed By: #### CMP ####[facility] ([address] [address] VIRGFR/1.73 sq M.predicted among non-blacks MDRD (S/P/Bld) [Vol rate/Area] 42 mL/min/{1.73_m2}Low>=60ProWhite Rock Medical CenterComment on above:Result Comment: eGFR not reported due to non-numeric value for Creatinine.Performed By: #### CMP ####[facility] ([address] [address] VIRGlucose [Mass/Vol]148 mg/sMOgho83-85GwdGnpznxWhite Rock Medical CenterComment on above:Performed By: #### CMP ####[facility] ([facility])[address] [place] [address] VIRPotassium [Moles/Vol]4.4 mmol/LNormal3.5-5.0Mer[facility] Health Allen HospitalComment on above:Performed By: #### CMP ####[facility] ([facility])[address] [address] VIRProtein [Mass/Vol]6.6 g/dLNormal6.0-8.0[facility] Comment on above:Performed By: #### CMP ####[facility] ([facility])[address] [address] VIRSodium [Moles/Vol]139 mmol/LNormal 134-146ProWhite Rock Medical CenterComment on above:Performed By: #### CMP ####[facility] ([address], [place] [address] VIRUrea nitrogen [Mass/Vol]27 mg/dLSaint John'S Breech Regional Medical Centeral5-27ProWhite Rock Medical Center Comment on above:Performed By: #### CMP ####[facility] ([facility])[address] [place] [address].[place] [address] VIRCT BRAIN WO CONTon [id number] BRAIN WO CONTNormalProWhite Rock Medical CenterCT Head WO contraston 05-14-2025 STUDY: CT HEAD [...] Blu Miller MD on 05/14/2025 12:24 PM [facility] HospitalM_SOLUTION SystemRadiology Study observation (narrative)ProMedicLion Fortress Services SystemCT Head WO contrastOrdered By: Blu Miller on [id number] Health System Work Phone: Comprehensive metabolic panelon 89-63-8127Jgwgynp [Mass/Vol]2.9 g/dLLow3.2 - 5.3 g/dLProMedica Health SystemALP [Catalytic activity/Vol]128 U/L39 - 130 U/LProMedica Health SystemALT No additional P-5'-P [Catalytic activity/Vol]14 U/LNINF - 31 U/LProMedica Health SystemAnion gap [Moles/Vol]9 mmol/L5 - 15 mmol/LProMedica Health SystemAST [Catalytic activity/Vol]23 U/LNINF - 41 U/LProMedica Health SystemBilirubin [Mass/Vol]0.6 mg/dL0.3 - 1.2 mg/dLProMedica Health SystemCalcium [Mass/Vol]9 mg/dL8.5 - 10.5 mg/dLSheltering Arms Hospital Health SystemChloride [Moles/Vol]108 mmol/L98 - 109 mmol/L ProMedica Health SystemCO2 [Moles/Vol]22 mmol/L22 - 32 mmol/LProMedica Health SystemCreatinine [Mass/Vol]1.3 mg/dLHigh0.40 - 1.00 mg/dLWright-Patterson Medical Center System Comment on above:METHOD TRACEABLE TO IDNM STANDARDEGFR Non-Race Tbnwyssnn15Rju- PINFProMedandalusia health Health SystemComment on above:eGFR not reported due to non-numeric value for Creatinine.Glucose [Mass/Vol]148 mg/kMFrjp06 - 99 mg/dLWright-Patterson Medical Center SystemInterpretation and review of laboratory resultsAbnormalSheltering Arms Hospital Health SystemPotassium [Moles/Vol]4.4 mmol/L3.5 - 5.0 mmol/LProMedica Health SystemProtein [Mass/Vol]6.6 g/dL6.0 - 8.0 g/dLSheltering Arms Hospital Health SystemSodium [Moles/Vol]139 mmol/L134 - 146 mmol/Pending sale to Novant HealthoMedandalusia health Health SystemUrea nitrogen [Mass/Vol]27 mg/dL5 - 27 mg/dLWright-Patterson Medical Center SystemW[facility] System MAGNESIUMon 01-61-9139Plzbgprrv [Mass/Vol]2.1 mg/dLNormal1.8-2.6Mercy Health Allen HospitalComment on above:Performed By: #### MG ####[address] [address] VIRMagnesium [Mass/Vol]1.6 mg/dLLow1.8-2.6Mercy Health Allen HospitalComment on above: Performed By: #### MG ####[address] [address] VIRMagnesiumon 18-12-6464Qjcqlcpvocemrc and review of laboratory resultsNormConemaugh Miners Medical Center SystemMagnesium [Mass/Vol]2.1 mg/dL1.8 - 2.6 mg/dLProMercy Health Fairfield Hospital SystemWright-Patterson Medical Center SystemInterpretation and review of laboratory resultsAbnormConemaugh Miners Medical Center SystemMagnesium [Mass/Vol] 1.6 mg/dLLow1.8 - 2.6 mg/dLDepartment of Veterans Affairs [facility] SystemAPTTon 04-77-3164xREE Coag (PPP) [Time]30 sPrHolzer Medical Center – JacksonInterpretation and review of laboratory resultsNormalHorsham Clinic aPTT Coag (Bld) [Time]30 dPralfo08-76EcfQwulthWhite Rock Medical CenterComment on above: Performed By: #### PTT ####[facility] ([facility])[address] [place] [address] VIRB-TYPE NATRIURETIC PEPTIDEon 39-74-6594Ryayhgqeasm peptide B (Bld) [Mass/Vol]602 pg/mLHigh<=100Mercy Health Allen HospitalComment on above:Performed By: #### BNP ####[facility] ([address] [address] VIRB-type natriuretic peptideOrdered By: Haven Tao on 20-98-0520Wqajhaoqremcct and review of laboratory results AbnormalSumma Health Akron CampusNatriuretic peptide B (Bld) [Mass/Vol]602 pg/mL HighNINF - 100 pg/mLHorsham ClinicBEDSIDE GLUCOSEon 62-60-2816Bisgovz [Mass/Vol]256 mg/tLUyiw53-07AihVbrmyhMercy Health Allen HospitalComment on above:Performed By: #### BEDG ####[facility] ([facility])[address] [place], [place] [address] VIRGlucose [Mass/Vol]384 mg/dL Uzlb33-03KzfVfpgpcMercy Health Allen HospitalComment on above:Performed By: #### BEDG ####[facility] ([address] VIRBLOOD CULTUREon 31-47-3803Tlyveqdk identified Cx Nom (Bld)CULTURE RESULTS NO GROWTH 5 DAYSNormalMercy Health Allen HospitalComment on above:Order Comment: *SIRS Criteria: (must display 2 without other explanation)-Temperature < 36 or >38-Pulse >90-Resp rate >20-WBC less than 4K or greater than 12KRepeat blood cultures not needed:-To document that a blood culture is a contaminant when 1 of 2 bottles is positive for a common contaminant (already listed in [facility] with the culture result)-To document clearance of gram negative bacteremia in patients with suspected urinary source who are improvingPerformed By: #### BC ####[facility] ([facility])[address] [address], [place] [address] VIRBacteria identified Cx Nom (Bld)CULTURE RESULTS NO GROWTH 5 DAYSNormalProWhite Rock Medical CenterComment on above:Order Comment: *SIRS Criteria: (must display 2 without other explanation)-Temperature < 36 or >38-Pulse >90-Resp rate >20-WBC less than 4K or greater than 12KRepeat blood cultures not needed:-To document that a blood culture is a contaminant when 1 of 2 bottles is positive for a common contaminant (already listed in [facility] with the culture result)-To document clearance of gram negative bacteremia in patients with suspected urinary source who are improvingOnly aerobic bottle receivedPerformed By: #### BC ####[facility] ([facility])[address] [facility] [address] [address], [place] [address] VIRBLOOD GAS, ARTERIALon 05-13-2025 BASE,DEFICIT-3.0 mmol/LLow0.0-2.0Mercy Health Allen HospitalComment on above: Performed By: #### ABG ####[facility] ([facility])[address] [place] [address] VIRHCO3 (Bld) [Moles/Vol]22.8 mmol/WNjxjil82.0-26.0 [facility] HospitalComment on above:Performed By: #### ABG ####[facility] ([facility])[address] [place] [address] VIROxygen saturation in Blood92.0 %Normal>90.0Mercy Health Allen HospitalComment on above: Performed By: #### ABG ####[facility] ([facility])[address] [place] [address] [place] [address] VIRPCO2 NADZZPSV81.4 viSiCfachu49.0-45.0ProWhite Rock Medical CenterComment on above:Performed By: #### ABG ####[facility]NDan[facility] ([facility])[address] [place] [address] [place] [address] VIRPH ARTERIAL7.349 Low7.350-7.450ProWhite Rock Medical CenterComment on above:Performed By: #### ABG ####[facility] ([facility])[address] [place], [place] [address]E.[place], [place] [address] VIRPO2 XACPWABI03 mvMzWyk66-179IohJqmzxzWhite Rock Medical CenterComment on above: Performed By: #### ABG ####[facility]NDan[facility] ([address] [place] [address] VIRPOC TATO'S TESTN/ANormalMercy Health Allen HospitalComment on above:Performed By: #### ABG ####[facility]NDan[facility] ([address] [place] [address] VIRSAMPLE SITEL RadNormal [facility] HospitalComment on above:Performed By: #### ABG ####[facility]NDan[facility] ([address] [place] [address] VIRSAMPLE TYPEARTERIALNormalMercy Health Allen HospitalComment on above:Performed By: #### ABG ####[facility] ([facility])[address] [place] [address].[place] [address] VIRSOURCE OF OXYGENNCNormalMercy Health Allen HospitalComment on above: Performed By: #### ABG ####[facility] ([address] [place] [address] VIRBedside Glucose *Place/Obtain serum glucose if >500 per glucometer.on 27-92-2226Edfpyoi [Mass/Vol]256 mg/aRFzyd23 - 99 mg/dL [facility] CampusInterpretation and review of laboratory resultsAbnormal Horsham ClinicGlucose [Mass/Vol]384 mg/uLOwuo32 - 99 mg/dLSumma Health Akron CampusInterpretation and review of laboratory results AbnormalHorsham ClinicC-REACTIVE PROTEINon 05-13-2025 REACTIVE PROTEIN6.1 mg/dLHigh<=0.7Mer[facility] Health Allen HospitalComment on above:Performed By: #### CRP ####[facility] ([address] [address] VIRC-reactive proteinon 82-74-8548GKJ [Mass/Vol]6.1 mg/dLHighNINF - 0.7 mg/dLSumma Health Akron CampusInterpretation and review of laboratory resultsAbnormalHorsham ClinicCBC WITH AUTO DIFFERENTIALon 97-29-3588YYAGYBQQR ABSOLUTE COUNT (10*3/UL) BY AUTOMATED COUNT0.1 10*3/uLNormal0.0-0.2PTriHealth Bethesda Butler HospitalComment on above:Performed By: #### CBCA ####[facility] ([address] [id number] VIRBASOPHILS RELATIVE PERCENT BY AUTOMATED COUNT 0.6 %NormalMercy Health Allen HospitalComment on above:Performed By: #### CBCA ####[facility] ([address] [id number] VIRCELLAVISION DIFFERENTIAL TYPEAUTOMATED DIFFERENTIALNoalMercy Health Allen HospitalComment on above:Performed By: #### CBCA ####[facility] ([address] [id number] VIREosinophils (Bld) [#/Vol] 0.1 10*3/uLNormal0.0-0.4Mercy Health Allen HospitalComment on above:Performed By: #### CBCA ####[facility] ([address], [id number] VIREOSINOPHILS RELATIVE PERCENT BY AUTOMATED COUNT1.6 % NormalMercy Health Allen HospitalComment on above:Performed By: #### CBCA ####[facility] ([address], [id number] VIRErythrocyte distribution width (RBC) [Ratio]15.8 %High11.5-15ProWhite Rock Medical CenterComment on above:Performed By: #### CBCA ####[facility] ([address], [id number] VIRHematocrit (Bld) [Volume fraction]36.0 %Qgfboe37-34GhaBnfpecWhite Rock Medical CenterComment on above: Performed By: #### CBCA ####[facility] ([address], [id number] VIRHemoglobin (Bld) [Mass/Vol]11.8 g/yFRlflrd89.7-15.5 [facility] HospitalComment on above:Performed By: #### CBCA ####[facility] ([address], [id number] VIR LYMPHOCYTES ABSOLUTE COUNT (10*3/UL) BY AUTOMATED COUNT1.7 10*3/uLNormal1.0-3.5 [facility] HospitalComment on above:Performed By: #### CBCA ####[facility] ([address], [id number] VIR LYMPHOCYTES RELATIVE PERCENT BY AUTOMATED COUNT18.7 %NormalMercy Health Allen HospitalComment on above:Performed By: #### CBCA ####[facility] ([address], [id number] VIRMCH (RBC) [Entitic mass] 27.5 fkNfrihf78-94EjeBubzbcWhite Rock Medical CenterComment on above:Performed By: #### CBCA ####[facility] ([facility])[address] [place] [address] [place] [address] VIRMCHC (RBC) [Mass/Vol]32.7 g/wMRnwpqp30-19GpnFlskozMercy Health Allen Hospital Comment on above:Performed By: #### CBCA ####[facility] ([address], [id number] VIRMCV (RBC) [Entitic vol]84 fLNormal 80-100ProWhite Rock Medical CenterComment on above:Performed By: #### CBCA ####[facility] ([address], [id number] VIRMONOCYTES ABSOLUTE COUNT (10*3/UL) BY AUTOMATED COUNT0.9 10*3/uLNormal0.0-0.9 [facility] HospitalComment on above:Performed By: #### CBCA ####[facility] ([address], [id number] VIRMONOCYTES RELATIVE PERCENT BY AUTOMATED COUNT10.3 %NormalProWhite Rock Medical CenterComment on above:Performed By: #### CBCA ####[facility] ([address], [id number] VIRNEUTROPHILS ABSOLUTE COUNT BY AUTOMATED COUNT6.2 10*3/uLNormal1.5-6.6Mer[facility] Allen HospitalComment on above:Performed By: #### CBCA ####[facility] ([address], [id number] VIRNEUTROPHILS RELATIVE PERCENT BY AUTOMATED COUNT68.8 %NormalMercy Health Allen HospitalComment on above:Performed By: #### CBCA ####[facility] ([address] [place] [address] VIRPlatelet mean volume (Bld) [Entitic vol]8.4 fLNormal7-12ProMedica Barrington HospitalComment on above:Performed By: #### CBCA ####[facility] ([facility])[address] [place], [place] [address]E.[place], [id number] VIRPlatelets (Bld) [#/Vol]266 10*3/yXXhlvot075-849IxoZkuozb Fremont HospitalComment on above: Performed By: #### CBCA ####[facility] ([facility])[address] [place] [address] [place], [id number] VIRRBC COUNT4.27 X10E12/LNormal3.8-5.2PTriHealth Bethesda Butler HospitalComment on above:Performed By: #### CBCA ####[facility] ([facility])[address] [place] [address], [id number] VIRWBC (Bld) [#/Vol] 9.0 10*3/uLNormal4-11ProWhite Rock Medical CenterComment on above:Performed By: #### CBCA ####[facility] ([facility])[address] [place] [address] AVE.[place], [id number] VIRCBC auto differentialon 23-24-0704Vjrjgskxd (Bld) [#/Vol]0.1 10*3/uL0.0 - 0.2 10*3/uLProMercy Health Fairfield Hospital SystemBasophils/100 WBC (Bld)0.6 %[facility] CampusDifferential cell count method Nom (Bld) AUTOMATED DIFFERENTIALSumma Health Akron CampusEosinophils (Bld) [#/Vol]0.1 10*3/uL0.0 - 0.4 10*3/uLSumma Health Akron CampusEosinophils/100 WBC (Bld)1.6 % [facility] CampusErythrocyte distribution width (RBC) [Ratio]15.8 %High 11.5 - 15 %[facility] CampusHematocrit (Bld) [Volume fraction]36 %35 - 47 %[facility] CampusHemoglobin (Bld) [Mass/Vol]11.8 g/dL11.7 - 15.5 g/dL [facility] CampusInterpretation and review of laboratory resultsAbnormal [facility] CampusLymphocytes (Bld) [#/Vol]1.7 10*3/uL1.0 - 3.5 10*3/uL [facility] CampusLymphocytes/100 WBC (Bld)18.7 %[facility]tering Memorial HospitalH (RBC) [Entitic mass]27.5 pg27 - 34 [facility] HospitalMCHC (RBC) [Mass/Vol]32.7 g/dL32 - 36 g/dLSumma Health Akron CampusMCV (RBC) [Entitic vol]84 fL80 - 100 [facility] HospitalMonocytes (Bld) [#/Vol]0.9 10*3/uL0.0 - 0.9 10*3/uLSumma Health Akron CampusMonocytes/100 WBC (Bld)10.3 %[facility] CampusNeutrophils (Bld) [#/Vol]6.2 10*3/uL1.5 - 6.6 10*3/uLSumma Health Akron CampusNeutrophils/100 WBC (Bld)68.8 %[facility] CampusPlatelet mean volume (Bld) [Entitic vol]8.4 fL7 - 12 [facility] HospitalPlatelets (Bld) [#/Vol]266 10*3/[facility] HealthRBC (Bld) [#/Vol]4.27 10*6/[facility] HealthWBC LM Ql (Sput)9[facility] COMPREHENSIVE METABOLIC PANELon 61-38-4038Tdrwcts [Mass/Vol]3.6 g/dLNormal 3.2-5.3PTriHealth Bethesda Butler HospitalComment on above:Performed By: #### CMP ####[facility] ([facility])[address] [place] [address] [place], [place] [address] VIRALP [Catalytic activity/Vol]160 U/BEgdu21-829YveRealhlMercy Health Allen Hospital Comment on above:Performed By: #### CMP ####[facility] ([facility])[address] [place] [address] [place] [address] VIRALT [Catalytic activity/Vol]18 U/L Normal<=31PTriHealth Bethesda Butler HospitalComment on above:Performed By: #### CMP ####[facility] ([place] [address], [place] [address] VIRAnion gap [Moles/Vol]10 mmol/LNormal5-15[facility] Comment on above:Performed By: #### CMP ####[facility] ([address] [place] [address] VIRAST [Catalytic activity/Vol]31 U/L Normal<=41ProWhite Rock Medical CenterComment on above:Performed By: #### CMP ####[facility] ([place] [address], [place] [address] VIRBilirubin [Mass/Vol]0.5 mg/dLNormal0.3-1.2PTriHealth Bethesda Butler Hospital Comment on above:Performed By: #### CMP ####[facility] ([address] [place] [address] VIRCalcium [Mass/Vol]9.5 mg/dLNormal 8.5-10.5PTriHealth Bethesda Butler HospitalComment on above:Performed By: #### CMP ####[facility] ([address], [place] [address] VIRChloride [Moles/Vol]101 mmol/NSwlitn34-665UxtEsjgpwMercy Health Allen Hospital Comment on above:Performed By: #### CMP ####[facility] ([address] [place] [address] VIRCO2 [Moles/Vol]23 mmol/MXsxrot11-74 [facility] HospitalComment on above:Performed By: #### CMP ####[facility] ([place] [address] [place] [address] VIR Creatinine [Mass/Vol]1.41 mg/dLHigh0.40-1.00Mer[facility] HospitalComment on above:Result Comment: METHOD TRACEABLE TO IDMS STANDARDPerformed By: #### CMP ####[address] [address] VIRGFR/1.73 sq M.predicted among non-blacks MDRD (S/P/Bld) [Vol rate/Area] 38 mL/min/{1.73_m2}Low>=60ProWhite Rock Medical CenterComment on above:Result Comment: eGFR not reported due to non-numeric value for Creatinine.Reported eGFR is based ontheCKD-EPI 2020 equation that doesnot use a race coefficient. Performed By: #### CMP ####[address] [address] VIRGlucose [Mass/Vol]300 mg/kZEuye48-50ZznOruojdWhite Rock Medical CenterComment on above:Performed By: #### CMP ####[address] [address] VIRPotassium [Moles/Vol]4.7 mmol/LNormal3.5-5.0Mer[facility] HospitalComment on above: Performed By: #### CMP ####[address] [address] VIRProtein [Mass/Vol]8.2 g/dLHigh6.0-8.0ProWhite Rock Medical CenterComment on above:Performed By: #### CMP ####[address] [address] VIRSodium [Moles/Vol]134 mmol/OEraxwa688-541CzlGyqeje [facility]remont HospitalComment on above: Performed By: #### CMP ####[address] [address] VIRUrea nitrogen [Mass/Vol]31 mg/dLHigh5-27ProWhite Rock Medical CenterComment on above:Performed By: #### CMP ####[facility])[address] [facility] [place] [address] VIRCT HIP RT WO CONT on 24-77-6513JL HIP RT WO CONTNormalProMedica Barrington HospitalCT Hip - right WO contraston 05-13-2025 [...] Chester Parra MD on 05/13/2025 1:01 PM [facility] HospitalLion Fortress Services Up Health SystemRadiology Study observation (narrative)[facility] Cross HospitalM_SOLUTION SystemCT Hip - right WO contrastOrdered By: Chester Parra on 05-13-2025 [facility] HospitalClutter Work Phone: Comprehensive metabolic panelon 76-55-1699Sehmode [Mass/Vol]3.6 g/dL3.2 - 5.3 g/dLProDale Medical Center Health SystemALP [Catalytic activity/Vol]160 U/LHigh39 - 130 U/LPrWeisbrod Memorial County Hospital Health SystemALT No additional P-5'-P [Catalytic activity/Vol]18 U/LNINF - 31 U/[facility] Brownsvilleica Health SystemAnion gap [Moles/Vol]10 mmol/L5 - 15 mmol/LProMedica Health SystemAST [Catalytic activity/Vol]31 U/LNINF - 41 U/LProMedica Health SystemBilirubin [Mass/Vol]0.5 mg/dL0.3 - 1.2 mg/dLProMercy Health Fairfield Hospital SystemCalcium [Mass/Vol]9.5 mg/dL8.5 - 10.5 mg/dLProDale Medical Center CaroGen SystemChloride [Moles/Vol]101 mmol/L98 - 109 mmol/L [facility] CaroGen SystemCO2 [Moles/Vol]23 mmol/L22 - 32 mmol/LPrPike Community Hospital SystemCreatinine [Mass/Vol]1.41 mg/dLHigh0.40 - 1.00 mg/dLSheltering Arms Hospital CaroGen SystemComment on above:METHOD TRACEABLE TO IDMS STANDARDEGFR Non-Race Dependent 38Low- [facility] SystemComment on above:eGFR not reported due to non- numeric value for Creatinine. Reported eGFR is based on the CKD-EPI 2020 equation that does not use a race coefficient. Glucose [Mass/Vol]300 mg/qHWpco75 - 99 mg/dLSumma Health Akron CampusCodenvy System Interpretation and review of laboratory resultsAbnormalW[facility] System Potassium [Moles/Vol]4.7 mmol/L3.5 - 5.0 mmol/LProMedica Health SystemProtein [Mass/Vol]8.2 g/dLHigh6.0 - 8.0 g/dLProDale Medical Center Health SystemSodium [Moles/Vol]134 mmol/L134 - 146 mmol/LProMedica Health SystemUrea nitrogen [Mass/Vol]31 mg/dL High5 - 27 mg/dLHorsham ClinicCritical Careon [id number] Milligan DO 05/14/2025 10:54 PM Critical Care [...] my specialty: yes Care discussed with: admitting providerHorsham ClinicECG 12 leadOrdered By: Binta Quesada on [id number] Health [facility]ron CampusGas panel (BldA)on [id number] patency Wrist artery --pre arterial punctureN/AProMedica Health SystemBase deficit (Bld) [Moles/Vol]-3 mmol/LLow0.0 - 2.0 mmol/LProMedica East [facility] SystemCO2 (Bld) [Partial pressure]41.4 mm[Hg] [facility] SystemHCO3 (Bld) [Moles/Vol]22.8 mmol/L22.0 - 26.0 mmol/L [facility] SystemInterpretation and review of laboratory resultsAbnormal [facility] SystemOxygen (Bld) [Partial pressure]67 mm[Hg]LowProMercy Health Fairfield Hospital SystemOxygen therapy source and amount [CARE]NCProMedica Health SystempH (Bld)7.349 [pH]Low7.350 - 7.450[facility] SystemSpecimen site NarrativeL RadW[facility] Center SystemSpecimen type Nom (Spec)ARTERIALProAscension SE [facility] SystemHEMOGLOBINon 15-85-7271Ldrcmvgkon (Bld) [Mass/Vol] 11.5 g/dLLow11.7-15.5PTriHealth Bethesda Butler HospitalComment on above:Performed By: #### HGB ####[facility] ([facility])[address] [place] [address] VIRHemoglobinon 55-00-7533Syptfgtltl (Bld) [Mass/Vol]11.5 g/dLLow11.7 - 15.5 g/dLW[facility]-Pat[facility] SystemInterpretation and review of laboratory resultsAbnormalSheltering Arms Hospital Health SystemLACTATE W/ REFLEXon 05-13-2025 LACTATE W/REFLEX1.5 mmol/LNormal0.4-2.0Mercy Health Allen HospitalComment on above:Order Comment: Result did not trigger repeat Lactate,re-order if needed. Performed By: #### LACTS ####[facility] ([facility])[address] [place] [address] VIRLactate w/ Reflexon 25-72-8796Omsxisztaxnthm and review of laboratory resultsNormalSheltering Arms Hospital Health SystemLactate (P obed) [Moles/Vol]1.5 mmol/L0.4 - 2.0 mmol/LPrPike Community Hospital SystemResult did not trigger repeat Lactate, re-order if needed.[facility] SystemSumma Health Akron Campusca Health SystemLight Blue Top on 26-80-6789Xhscw TubeAuto ResultedProMercy Health Fairfield Hospital SystemSumma Health Akron Campusca Health SystemNo Panel Informationon 17-74-6416UqhAwuyjr Health SystemPLATELET COUNTon 46-96-5113Ffltymby mean volume (Bld) [Entitic vol]8.3 fLNormal7-12PTriHealth Bethesda Butler HospitalComment on above:Performed By: #### PLTCT ####[facility] ([facility])[address] [place] [address] VIRPlatelets (Bld) [#/Vol]214 10*3/qNPymyoo692-720ZftQwvvpxMercy Health Allen HospitalComment on above: Performed By: #### PLTCT ####[facility] ([address] [place] [address] VIRPROCALCITONINon 78-89-1150FQNYHJVCSDDXK8.05 ng/mL High<0.05Mercy Health Allen HospitalComment on above:Order Comment: <0.50 ng/mL - Low risk of severe sepsis and/or septic shock.<2.00 ng/mL - Recommend retesting within 6-24 hours.>2.00 ng/mL - High risk of sepsis and/or septic shock. Performed By: #### PCAL ####[facility] ([address], [place] VIRPST TOPon 48-01-6700Mpzll TubeAuto Resulted [facility] SystemPlatelet counton 05-13-2025 Interpretation and review of laboratory resultsNoCaroMont Regional Medical Center Platelet mean volume (Bld) [Entitic vol]8.3 fL7 - 12 [facility] Platelets (Bld) [#/Vol]214 10*3/uLSumma Health Akron CampusProcalcitoninon 56-63-8597Skezseygogyhwh and review of laboratory resultsAbnoCaroMont Regional Medical CenterProcalcitonin IA [Mass/Vol]0.05 ng/mLHighNINF - 0.05 ng/mLSumma Health Akron Campus<0.50 ng/mL - Low risk of severe sepsis and/or septic shock. <2.00 ng/mL - Recommend retesting within 6-24 hours. >2.00 ng/mL - High risk of sepsis and/or septic shock.[facility] CaroGen SystemTROP I, HIGH SENSITIVITY 1 HOURon 20-96-5807WBNWKKJE I, HIGH GFJHJXRKGGO84 ng/LHigh<16ProWhite Rock Medical CenterComment on above:Order Comment: Elevations of hs-Troponin may be due to causesother than myocardial ischemia.Recommend serial hs-Troponin testing be performed.For the initial evaluation and management of chestpain patients, refer to the algorithms linked below.Emergency Patient:[email or web address]:[email or web address] By: #### TNIHS1 ####[facility] ([address] [place] [address] VIRTROPONIN I, HIGH SENSITIVITY 0 HOURon 67-59-0510UMSTXEUH I, HIGH WOTSNBYUXXY22 ng/LHigh <16Mercy Health Allen HospitalComment on above:Performed By: #### TNIHS0 ####[facility]EDICDanielle [facility] ([address] [place] [address] VIRTroponin I, High Sensitivity 0 Houron 47-41-7376Msoxuvqnxdcnef and review of laboratory resultsAbQueens Hospital CenterTroponin I.cardiac High sensitivity method [Mass/Vol]35 ng/LHighNINF - 16 ng/LProMedSpooner Health SystemTroponin I, High Sensitivity 1 Houron 05-13-2025 Interpretation and review of laboratory resultsAbQueens Hospital Center Troponin I.cardiac High sensitivity method [Mass/Vol]26 ng/LHighNINF - 16 ng/L [facility] CampusElevations of hs-Troponin may be due to causes other than myocardial ischemia. Recommend serial hs-Troponin testing be performed. For the initial evaluation and management of chest pain patients, refer to the algorithms linked below. Emergency Patient: [email or web address] Inpatient: [email or web address] ClinicXR CHEST 1 VWon 77-88-3849UK CHEST 1 VW NormalMercy Health Allen HospitalXR Chest Single viewon 16-79-3705LhuutjBerry Wyman MD - 05/13/2025 Procedure: Chest x-ray performed Number of views:1 History:Shortness of breath Comparison:04/28/2025 Findings: The heart and lungs show no acute findings, and the mediastinum and stanley are grossly negative . Tube overlying right chest stable. Impression: 1. No acute change. Finalized by Berry Wyman MD on 05/13/2025 11:01 AM [facility] CampusRadiology Study observation (narrative)[facility] CampusXR Chest Single viewOrdered By: Berry Wyman on 66-34-6469DwdJtkyujSumma Health Akron Campus Work Phone: [phone] WITH AUTO DIFFERENTIALon 98-92-3286CCDRKMCKB ABSOLUTE COUNT (10*3/UL) BY AUTOMATED COUNT0.0 10*3/uLNormal0.0-0.2PTriHealth Bethesda Butler HospitalComment on above:Performed By: #### CBCA ####[facility] ([address] [id number] VIRBASOPHILS RELATIVE PERCENT BY AUTOMATED COUNT0.4 %NormalMercy Health Allen HospitalComment on above:Performed By: #### CBCA ####[facility] ([address] [place] VIRCELLAVISION DIFFERENTIAL TYPEAUTOMATED DIFFERENTIALNoalProWhite Rock Medical CenterComment on above:Performed By: #### CBCA ####[facility] ([address] [address] VIREosinophils (Bld) [#/Vol]0.2 10*3/uLNormal0.0-0.4Mercy Health Allen HospitalComment on above:Performed By: #### CBCA ####[facility] ([id number] VIREOSINOPHILS RELATIVE PERCENT BY AUTOMATED COUNT3.5 %NormalProWhite Rock Medical CenterComment on above: Performed By: #### CBCA ####[facility] ([address], [id number] VIRErythrocyte distribution width (RBC) [Ratio]15.8 % High11.5-15ProWhite Rock Medical CenterComment on above:Performed By: #### CBCA ####[facility] ([address], [id number] VIRHematocrit (Bld) [Volume fraction]32.5 %Vfu26-73DbdBzstzuWhite Rock Medical Center Comment on above:Performed By: #### CBCA ####[facility] ([address], [id number] VIRHemoglobin (Bld) [Mass/Vol]10.6 g/dL Low11.7-15.5PTriHealth Bethesda Butler HospitalComment on above:Performed By: #### CBCA ####[facility] ([address], [id number] VIRLYMPHOCYTES ABSOLUTE COUNT (10*3/UL) BY AUTOMATED COUNT1.4 10*3/uLNormal 1.0-3.5PTriHealth Bethesda Butler HospitalComment on above:Performed By: #### CBCA ####[facility] ([address], [id number] VIRLYMPHOCYTES RELATIVE PERCENT BY AUTOMATED COUNT20.3 %NormalProWhite Rock Medical CenterComment on above:Performed By: #### CBCA ####[facility] ([address], [id number] VIRMCH (RBC) [Entitic mass] 27.4 wlHezonx94-97HoqQnwvrvWhite Rock Medical CenterComment on above:Performed By: #### CBCA ####[facility] ([facility])[address] [place] [address] [place] [address] VIRMCHC (RBC) [Mass/Vol]32.5 g/kUBaotnb40-13AtrAqhfwdPike Community Hospital on above:Performed By: #### CBCA ####[facility] ([facility])[address] [place] [address] AVE.[place], [id number] VIRMCV (RBC) [Entitic vol]84 fLNormal 80-100ProWhite Rock Medical CenterComment on above:Performed By: #### CBCA ####[facility] ([address], [id number] VIRMONOCYTES ABSOLUTE COUNT (10*3/UL) BY AUTOMATED COUNT0.7 10*3/uLNormal0.0-0.9 [facility] HospitalComment on above:Performed By: #### CBCA ####[facility] ([address], [id number] VIRMONOCYTES RELATIVE PERCENT BY AUTOMATED COUNT10.4 %NormalMercy Health Allen HospitalComment on above:Performed By: #### CBCA ####[facility] ([address], [id number] VIRNEUTROPHILS ABSOLUTE COUNT BY AUTOMATED COUNT4.5 10*3/uLNormal1.5-6.6Mer[facility] Health Allen HospitalComment on above:Performed By: #### CBCA ####[facility] ([facility])[address] [place], [place] [address]E.[place], [id number] VIRNEUTROPHILS RELATIVE PERCENT BY AUTOMATED COUNT65.4 %NormalProWhite Rock Medical CenterComment on above:Performed By: #### CBCA ####[facility] ([facility])[address] [place] [address] [place] [address] VIRPlatelet mean volume (Bld) [Entitic vol]8.2 fLNormal7-12ProMedica Barrington HospitalComment on above:Performed By: #### CBCA ####[facility] ([facility] [address], [id number] VIRPlatelets (Bld) [#/Vol]263 10*3/oRIzapty713-402KzpMiczag Fremont HospitalComment on above: Performed By: #### CBCA ####[facility] ([facility])[address] [place], [place] [address], [id number] VIRRBC COUNT3.86 X10E12/LNormal3.8-5.2PTriHealth Bethesda Butler HospitalComment on above:Performed By: #### CBCA ####[facility] ([facility])[address] [place], [place] [address], [id number] VIRWBC (Bld) [#/Vol] 6.8 10*3/uLNormal4-11ProWhite Rock Medical CenterComment on above:Performed By: #### CBCA ####[facility] ([facility])[address] [place], [place] [address], [id number] VIRCOMPREHENSIVE METABOLIC PANELon 17-81-0050Wincwbk [Mass/Vol]3.3 g/dLNormal3.2-5.3PTriHealth Bethesda Butler HospitalComment on above: Performed By: #### CMP ####[facility] ([address] [place] [address] VIRALP [Catalytic activity/Vol]119 U/JOkavgv05-911 [facility] HospitalComment on above:Performed By: #### CMP ####[facility] ([facility])[address] [place] [address] [place] [address] VIRALT [Catalytic activity/Vol]16 U/LNormal<=31PTriHealth Bethesda Butler HospitalComment on above:Performed By: #### CMP ####[facility] ([place] [address] [place] [address] VIRAnion gap [Moles/Vol]10 mmol/LNormal5-15 [facility] HospitalComment on above:Performed By: #### CMP ####[facility] ([facility])[address] [place] [address] [place] [address] VIRAST [Catalytic activity/Vol]21 U/LNormal<=41ProMedica [facility] Springs Surgical CenterComment on above:Performed By: #### CMP ####[facility] ([address] [place] [address] VIRBilirubin [Mass/Vol]0.4 mg/dLNormal0.3-1.2 [facility] HospitalComment on above:Performed By: #### CMP ####[facility] ([address] [place] [address] VIRCalcium [Mass/Vol]8.9 mg/dLNormal8.5-10.5PTriHealth Bethesda Butler HospitalComment on above: Performed By: #### CMP ####[facility] ([address] [place] [address] VIRChloride [Moles/Vol]100 mmol/FDvpxfj07-872 [facility] HospitalComment on above:Performed By: #### CMP ####[facility] ([address] [place] [address] VIRCO2 [Moles/Vol]24 mmol/IWsjvcc96-57RcbKrqubdTriHealth Bethesda Butler HospitalComment on above: Performed By: #### CMP ####[facility] ([address] [place] [address] VIRCreatinine [Mass/Vol]1.37 mg/dLHigh0.40-1.00 [facility] HospitalComment on above:Result Comment: METHOD TRACEABLE TO IDMS STANDARDPerformed By: #### CMP ####[facility] ([address] [place] [address] VIRGFR/1.73 sq M.predicted among non- blacks MDRD (S/P/Bld) [Vol rate/Area]40 mL/min/{1.73_m2}Low>=60ProWhite Rock Medical CenterComment on above:Result Comment: eGFR not reported due to non-numeric value for Creatinine.Reported eGFR is based ontheCKD-EPI 2020 equation that doesnot use a race coefficient.Performed By: #### CMP ####[address] [address] VIRGlucose [Mass/Vol]348 mg/dYQdya65-17RohGruruzWhite Rock Medical CenterComment on above:Performed By: #### CMP ####[address] [address] VIRPotassium [Moles/Vol]4.1 mmol/LNormal3.5-5.0Mer[facility] Allen HospitalComment on above:Performed By: #### CMP ####[address] [address] VIRProtein [Mass/Vol]7.6 g/dLNormal6.0-8.0Mer[facility] Allen HospitalComment on above: Performed By: #### CMP ####[address] [address] VIRSodium [Moles/Vol]134 mmol/NOmzdon248-030OvtCvkygj Fremont HospitalComment on above:Performed By: #### CMP ####[address] [address] VIRUrea nitrogen [Mass/Vol]25 mg/dLNormal5-27ProWhite Rock Medical CenterComment on above:Performed By: #### CMP ####[address] [address] VIRCT LUMBAR SPINE WO CONTon 63-05-6147NX LUMBAR SPINE WO CONTNormalProWhite Rock Medical CenterPOCT NURSING URINE MACROSCOPIC UAon 65-42-6228GPBEGOAJT NURNegativeNormalNegativeSumma Health Akron Campusca Highland Springs Surgical CenterComment on above:Performed By: #### NUM ####[facility] ([address] [address] VIRBLOOD/HGB NURNegativeNormalNegative [facility] HospitalComment on above:Performed By: #### NUM ####[facility] ([address] [address] VIRGLUCOSE KVS925 mg/dLAbnormalNegativeMercy Health Allen HospitalComment on above:Performed By: #### NUM ####[address] [address] VIRKETONES NURNegativeNormalNegativeSumma Health Akron Campusca [facility] Springs Surgical CenterComment on above:Performed By: #### NUM ####[facility] ([address] [address] VIRLEUKOCYTE ESTERASE MARYJO NegativeNormalNegativeMercy Health Allen HospitalComment on above:Performed By: #### NUM ####[facility] ([address] [address] VIRNITRITE NURNegativeNormalNegativeSumma Health Akron Campusca [facility] Springs Surgical CenterComment on above:Performed By: #### NUM ####[facility] ([address] [address] VIRPH NUR5.9Rawjdk3.0, 6.0, 6.5, 7.0, 7.5, 8.0, 8.5, 5.5ProMedica [facility] Surgical CenterComment on above:Performed By: #### NUM ####[facility] ([address] [place] [address] VIRPROTEIN NURNegativeNormalNegativeProOur Lady Of Mercy Hospitalca Barrington HospitalComment on above:Performed By: #### NUM ####[facility] ([address] [place] [address] VIRSPECIFIC GRAVITY NUR1.015 Normal1.010, 1.015, 1.020, 1.025Mer[facility] HospitalCompromedica charles and [facility] on above: Performed By: #### NUM ####[facility] ([address] [place] [address] VIRUROBILINOGEN NUR0.2 E.U./dLNormHighland District HospitalComment on above:Performed By: #### NUM ####[facility] ([address] [address] VIRURINE CULTUREon 05-12-2025 Bacteria identified Cx Nom (U)CULTURE RESULTS NO GROWTH AT <1000 CFU/mLNormalMercy Health Allen HospitalComment on above: Performed By: #### UC ####[facility] (TT)[address] [facility] [address], [place] [address] VIRXR SPINE LUMBAR 2 OR 3 VWSon 42-12-4469RU SPINE LUMBAR 2 OR 3 VWSNormWooster Community Hospital WITH AUTO DIFFERENTIALon 46-71-2763DIZWIZRKK ABSOLUTE COUNT (10*3/UL) BY AUTOMATED COUNT 0.1 10*3/uLNormal0.0-0.2ProMedica [facility] Surgical CenterCompromedica charles and [facility] hospital on above:Performed By: #### CBCA ####[facility] ([address] VIRBASOPHILS RELATIVE PERCENT BY AUTOMATED COUNT0.9 %Normal [facility] HospitalCompromedica charles [facility] on above:Performed By: #### CBCA ####[facility] ([address] [address] VIR CELLAVISION DIFFERENTIAL TYPEAUTOMATED DIFFERENTIALMadison HealthCompromedica charles and [facility] hospital on above:Performed By: #### CBCA ####[facility] ([address], [place] VIREosinophils (Bld) [#/Vol] 0.3 10*3/uLNormal0.0-0.4Mer[facility] HospitalComment on above:Performed By: #### CBCA ####[facility] ([address], [id number] VIREOSINOPHILS RELATIVE PERCENT BY AUTOMATED COUNT2.9 % NormalMercy Health Allen HospitalComment on above:Performed By: #### CBCA ####[facility] ([address], [id number] VIRErythrocyte distribution width (RBC) [Ratio]15.3 %High11.5-15Mer[facility] HospitalComment on above:Performed By: #### CBCA ####[facility] ([address], [id number] VIRHematocrit (Bld) [Volume fraction]34.6 %Wep82-60ThlEnatldMercy Health Allen HospitalComment on above: Performed By: #### CBCA ####[facility] ([address], [id number] VIRHemoglobin (Bld) [Mass/Vol]11.3 g/dLLow11.7-15.5 [facility] HospitalComment on above:Performed By: #### CBCA ####[facility] ([address], [id number] VIR LYMPHOCYTES ABSOLUTE COUNT (10*3/UL) BY AUTOMATED COUNT1.6 10*3/uLNormal1.0-3.5 [facility] HospitalComment on above:Performed By: #### CBCA ####[facility] ([address], [id number] VIR LYMPHOCYTES RELATIVE PERCENT BY AUTOMATED COUNT13.6 %NormalMercy Health Allen HospitalComment on above:Performed By: #### CBCA ####[facility] ([facility])[address] [place] [address] AVE.[place], [id number] VIRMCH (RBC) [Entitic mass] 27.6 unSgowai47-30ObcSkcxrhWhite Rock Medical CenterComment on above:Performed By: #### CBCA ####[facility] ([facility])[address] [place], [place] [address] [address] VIRMCHC (RBC) [Mass/Vol]32.7 g/yQZxsmgm23-94OnkCxmeegWhite Rock Medical Center Comment on above:Performed By: #### CBCA ####[facility] ([facility])[address] [place], [place] [address]E.[place], [id number] VIRMCV (RBC) [Entitic vol]84 fLNormal 80-100ProWhite Rock Medical CenterComment on above:Performed By: #### CBCA ####[facility] ([facility])[address] [place] [address] [address], [id number] VIRMONOCYTES ABSOLUTE COUNT (10*3/UL) BY AUTOMATED COUNT0.7 10*3/uLNormal0.0-0.9 [facility] HospitalComment on above:Performed By: #### CBCA ####[facility] ([facility])[address] [place] [address] [address], [id number] VIRMONOCYTES RELATIVE PERCENT BY AUTOMATED COUNT6.4 %NormalProWhite Rock Medical CenterComment on above:Performed By: #### CBCA ####[facility] ([facility])[address] [place] [address] [place], [id number] VIRNEUTROPHILS ABSOLUTE COUNT BY AUTOMATED COUNT8.9 10*3/uLHigh1.5-6.6Mer[facility] Health Allen HospitalComment on above: Performed By: #### CBCA ####[facility] ([facility])[address] [place] [address] [address], [id number] VIRNEUTROPHILS RELATIVE PERCENT BY AUTOMATED COUNT76.2 %NormalMercy Health Allen HospitalComment on above:Performed By: #### CBCA ####[facility] ([facility])[address], [id number] VIRPlatelet mean volume (Bld) [Entitic vol]8.0 fLNormal7-12PTriHealth Bethesda Butler HospitalComment on above:Performed By: #### CBCA ####[facility] ([facility] [address], [id number] VIRPlatelets (Bld) [#/Vol]392 10*3/iKUvtmni935-942EdqFhxnov Fremont HospitalComment on above:Performed By: #### CBCA ####[facility] ([facility] [address], [id number] VIRRBC COUNT4.11 X10E12/LNormal3.8-5.2PTriHealth Bethesda Butler HospitalComment on above:Performed By: #### CBCA ####[facility] ([facility])[address] [place], [place] [address], [id number] VIRWBC (Bld) [#/Vol]11.7 10*3/uLHigh4-11ProWhite Rock Medical CenterComment on above:Performed By: #### CBCA ####[facility] ([facility])[address] [place], [place] [address] [address] VIRCOMPREHENSIVE METABOLIC PANELon 26-31-3356Edawwdg [Mass/Vol]3.6 g/dL Normal3.2-5.3PTriHealth Bethesda Butler HospitalComment on above:Performed By: #### CMP ####[facility] ([facility])[address] [place], [place] [address], [place] [address] VIRALP [Catalytic activity/Vol]154 U/RLmip57-441LrdWranjiWhite Rock Medical Center Comment on above:Performed By: #### CMP ####[facility] ([facility] [address] [address] VIRALT [Catalytic activity/Vol]14 U/L Normal<=31PTriHealth Bethesda Butler HospitalComment on above:Performed By: #### CMP ####[facility] ([facility])[address] [place] [address], [place] [address] VIRAnion gap [Moles/Vol]15 mmol/LNormal5-15[facility] Comment on above:Performed By: #### CMP ####[facility] ([address] [address] VIRAST [Catalytic activity/Vol]29 U/L Normal<=41ProWhite Rock Medical CenterComment on above:Performed By: #### CMP ####[facility] ([address], [place] [address] VIRBilirubin [Mass/Vol]0.9 mg/dLNormal0.3-1.2PTriHealth [facility] Comment on above:Performed By: #### CMP ####[facility] ([address] [address] VIRCalcium [Mass/Vol]9.7 mg/dLNormal 8.5-10.5PTriHealth Bethesda Butler HospitalComment on above:Performed By: #### CMP ####[facility] ([address], [place] [address] VIRChloride [Moles/Vol]92 mmol/QQqc70-962OtmGjijwtWhite Rock Medical CenterComment on above:Performed By: #### CMP ####[facility] ([place] [address] [place] [address] VIRCO2 [Moles/Vol]26 mmol/EGysgjb70-55 [facility] HospitalComment on above:Performed By: #### CMP ####[facility] ([place] [address] [place] [address] VIR Creatinine [Mass/Vol]1.47 mg/dLHigh0.40-1.00ProWhite Rock Medical CenterComment on above:Result Comment: METHOD TRACEABLE TO IDNM STANDARDPerformed By: #### CMP ####[address] [address] VIRGFR/1.73 sq M.predicted among non-blacks MDRD (S/P/Bld) [Vol rate/Area] 36 mL/min/{1.73_m2}Low>=60ProWhite Rock Medical CenterComment on above:Result Comment: eGFR not reported due to non-numeric value for Creatinine.Reported eGFR is based ontheCKD-EPI 1 equation that doesnot use a race coefficient. Performed By: #### CMP ####[address] [address] VIRGlucose [Mass/Vol]271 mg/cRTcnp88-92FkiHjcftfWhite Rock Medical CenterComment on above:Performed By: #### CMP ####[address] [address] VIRPotassium [Moles/Vol]4.6 mmol/LNormal3.5-5.0[facility] HospitalComment on above: Performed By: #### CMP ####[address] [address] VIRProtein [Mass/Vol]8.4 g/dLHigh6.0-8.0[facility] HospitalComment on above:Performed By: #### CMP ####[address] [address] VIRSodium [Moles/Vol]133 mmol/BYgm963-580SwfOkojbbWhite Rock Medical CenterComment on above: Performed By: #### CMP ####[address] [address] VIRUrea nitrogen [Mass/Vol]17 mg/dLNormal5-27 [facility] HospitalComment on above:Performed By: #### CMP ####[facility] ([address] [place] [address] VIRCT BRAIN WO CONTon [id number] BRAIN WO CONTNormalProMedica Highland Springs Surgical CenterPOCT NURSING URINE MACROSCOPIC UAon [id number] NURSmallAbnormalNegativeProWhite Rock Medical CenterComment on above:Performed By: #### NUM ####[facility] ([address] [place] [address] VIRBLOOD/HGB MARYJO TraceAbnormalNegativeProWhite Rock Medical CenterComment on above:Performed By: #### NUM ####[facility] ([address] [place] [address] VIRGLUCOSE NURNegativeNormalNegativeMercy Health Allen HospitalComment on above:Performed By: #### NUM ####[facility] ([address] [address] VIRKETONES NUR40 mg/dL AbnormalNegativeMercy Health Allen HospitalComment on above:Performed By: #### NUM ####[facility] ([address] [place] [address] VIRLEUKOCYTE ESTERASE NURSmallAbnormalNegativeMercy Health [facility] Hospital Comment on above:Performed By: #### NUM ####[facility] ([address] [place] [address] VIRNITRITE NURPositiveAbnormalNegative [facility] HospitalComment on above:Performed By: #### NUM ####[facility] ([address] [place] [address] VIRPH NUR6.0 Normal5.0, 6.0, 6.5, 7.0, 7.5, 8.0, 8.5, 5.5ProMedica Highland Springs Surgical CenterComment on above:Performed By: #### NUM ####[facility] ([facility])[address] [address] VIRPROTEIN TNV804 mg/dLAbnormalNegative [facility] HospitalComment on above:Performed By: #### NUM ####[facility] ([facility])[address] [place] [address] VIRSPECIFIC GRAVITY NUR1.703Nmzbuz6.010, 1.015, 1.020, 1.025[facility] Comment on above:Performed By: #### NUM ####[facility] ([facility])[address] [place] [address] VIRUROBILINOGEN NUR0.2 E.U./dLNormal [facility] HospitalComment on above:Performed By: #### NUM ####[facility] ([facility])[address] [place] [address] VIRURINE CULTUREon [id number] identified Cx Nom (U)SusceptibleMercy Health Allen HospitalComment on above:Performed By: #### UC ####[facility] ([facility])[address] [facility] [address] [place] [address] VIRXR CHEST 1 VWon [id number] CHEST 1 VWNormalMercy Health Allen HospitalTelemedicineon 04-05-2025 [id number] Cuca Dee 1945 F Date Provider Department Center 04/05/2025 [facility] IN[facility] Family History Problem Relation Age of Onset Diabetes Mother Hypertension Father Coronary artery disease Father Family Status - Relation Status Age at Mother Father Level of Service:[address] [place] OFFICE/OUTPATIENT ESTABLISHED LOW MDM 20 MIN Reason for Visit and Comments: Follow-up [002022] - No longer on IV Antibiotics or oral and doing well. MRSA [647]NormalUnWadsworth-Rittman Hospital36on [id number] are in chartNormalUniversSamaritan HospitalBASIC METABOLIC PANELon 04-03-2025 Anion gap [Moles/Vol]13 mmol/LNormal5-15[facility] HospitalComment on above:Performed By: #### BMP ####[facility] ([facility])[address] [address] VIRCalcium [Mass/Vol]9.9 mg/dLNormal8.5-10.5 [facility] HospitalComment on above:Performed By: #### BMP ####[facility] ([facility])[address] [facility] [address] [address] VIR Chloride [Moles/Vol]98 mmol/JVsxadg73-257WfeWpngsbMercy Health Allen HospitalComment on above:Performed By: #### BMP ####[facility] ([facility])[address] [address] VIRCO2 [Moles/Vol]25 mmol/IZcppvs92-45 [facility] HospitalComment on above:Performed By: #### BMP ####[facility] ([facility])[address] [address] VIR Creatinine [Mass/Vol]1.30 mg/dLHigh0.40-1.00[facility] HospitalComment on above:Result Comment: METHOD TRACEABLE TO IDMS STANDARDPerformed By: #### BMP ####[facility] ([facility])[address] [address] VIRGFR/1.73 sq M.predicted among non-blacks MDRD (S/P/Bld) [Vol rate/Area] 42 mL/min/{1.73_m2}Low>=60ProWhite Rock Medical CenterComment on above:Result Comment: Reported eGFR is based on theCKD-EPI 2020 equation that doesnot use a race coefficient.Performed By: #### BMP ####[facility] ([facility])[address] [address] VIRGlucose [Mass/Vol]227 mg/dLHigh 65-99ProWhite Rock Medical CenterComment on above:Performed By: #### BMP ####[facility] ([facility])[address] [facility] [address] [address] VIRPotassium [Moles/Vol]4.2 mmol/LNormal3.5-5.0[facility] Comment on above:Performed By: #### BMP ####[facility] ([facility])[address] [facility] [address] [address] VIRSodium [Moles/Vol]136 mmol/L Hulhcf480-237JowZfbqdoWhite Rock Medical CenterComment on above:Performed By: #### BMP ####[facility] ([facility])[address] [facility] [address] [address] VIRUrea nitrogen [Mass/Vol]17 mg/dLNormal5-27[facility] Comment on above:Performed By: #### BMP ####[facility] ([facility])[address] [facility] [address] [address] VIRCBC WITH AUTO DIFFERENTIALon 33-51-2312PHRGZRNFA ABSOLUTE COUNT (10*3/UL) BY AUTOMATED COUNT0.1 10*3/uLNormal 0.0-0.2PTriHealth Bethesda Butler HospitalCompromedica charles [facility] on above:Order Comment: Abnormal CBC with auto diff reflexes to a manual diffResult Comment: This is an appended report. These results have been appended to a previously preliminary verified report.Performed By: #### CBCA ####[facility] ([facility])[address] [facility] [address], [place] [address] VIRBASOPHILS RELATIVE PERCENT BY AUTOMATED COUNT0.8 %NormalProWhite Rock Medical CenterComment on above:Order Comment: Abnormal CBC with auto diff reflexes to a manual diffResult Comment: This is an appended report. These results have been appended to a previously preliminary verified report.Performed By: #### CBCA ####[facility] ([facility])[address] [facility] [address], [place] [address] VIRCELLAVISION DIFFERENTIAL TYPE AUTOMATED DIFFERENTIALNormalProAdventHealth Central [place] on above:Order Comment: Abnormal CBC with auto diff reflexes to a manual diffResult Comment: This is an appended report. These results have been appended to a previously preliminary verified report.Performed By: #### CBCA ####[facility] ([facility])[address], [place] [address] VIREosinophils (Bld) [#/Vol]0.4 10*3/uLNormal0.0-0.4[facility] HospitalCompromedica [facility] on above:Order Comment: Abnormal CBC with auto diff reflexes to a manual diffResult Comment: This is an appended report. These results have been appended to a previously preliminary verified report.Performed By: #### CBCA ####[facility] ([facility])[address] [facility] [address], [place] [address] VIREOSINOPHILS RELATIVE PERCENT BY AUTOMATED COUNT4.5 %NormalProWhite Rock Medical CenterCompromedica charles and [facility] hospital on above:Order Comment: Abnormal CBC with auto diff reflexes to a manual diff Result Comment: This is an appended report. These results have been appended to a previously preliminary verified report.Performed By: #### CBCA ####[facility] ([facility])[address] [facility] [address] [address] VIR Erythrocyte distribution width (RBC) [Ratio]15.9 %High11.5-15ProWhite Rock Medical CenterCompromedica charles and [facility] on above:Order Comment: Abnormal CBC with auto diff reflexes to a manual diffPerformed By: #### CBCA ####[facility] ([facility])[address] [facility] [address], [place] [address] VIRHematocrit (Bld) [Volume fraction]32.9 %Cmu24-07WruLympkjWhite Rock Medical CenterCompromedica char[facility] on above:Order Comment: Abnormal CBC with auto diff reflexes to a manual diffPerformed By: #### CBCA ####[facility] ([facility])[address], [place] [address] VIRHemoglobin (Bld) [Mass/Vol]10.9 g/dLLow11.7-15.5ProMedica Barrington HospitalComment on above:Order Comment: Abnormal CBC with auto diff reflexes to a manual diffPerformed By: #### CBCA ####[facility] ([facility])[address] [address] VIRLYMPHOCYTES ABSOLUTE COUNT (10*3/UL) BY AUTOMATED COUNT1.4 10*3/uLNormal1.0-3.5PTriHealth Bethesda [facility] Hospital Comment on above:Order Comment: Abnormal CBC with auto diff reflexes to a manual diffResult Comment: This is an appended report. These results have been appended to a previously preliminary verified report.Performed By: #### CBCA ####[facility] ([facility])[address] [address] VIRLYMPHOCYTES RELATIVE PERCENT BY AUTOMATED COUNT17.6 %NormalProWhite Rock Medical CenterCompromedica char[facility] and [facility] on above:Order Comment: Abnormal CBC with auto diff reflexes to a manual diffResult Comment: This is an appended report. These results have been appended to a previously preliminary verified report.Performed By: #### CBCA ####[facility] ([facility])[address] [address] VIRH (RBC) [Entitic mass]27.6 xaLrsglo72-17IddUhjihgWhite Rock Medical CenterComment on above:Order Comment: Abnormal CBC with auto diff reflexes to a manual diffPerformed By: #### CBCA ####[facility] ([facility])[address] [address] VIRHC (RBC) [Mass/Vol]33.2 g/xYUcnkrk04-26OpzPhuyexWhite Rock Medical CenterComment on above:Order Comment: Abnormal CBC with auto diff reflexes to a manual diffPerformed By: #### CBCA ####[facility] ([facility])[address] [address] VIRV (RBC) [Entitic vol]83 fQBvbblj83-558GxaLntvbq Fremont HospitalComment on above:Order Comment: Abnormal CBC with auto diff reflexes to a manual diffPerformed By: #### CBCA ####[facility] ([facility])[address], [place] [address] VIRMONOCYTES ABSOLUTE COUNT (10*3/UL) BY AUTOMATED COUNT0.6 10*3/uLNormal0.0-0.9[facility] Comment on above:Order Comment: Abnormal CBC with auto diff reflexes to a manual diffResult Comment: This is an appended report. These results have been appended to a previously preliminary verified report.Performed By: #### CBCA ####[facility] ([facility])[address], [place] [address] VIR MONOCYTES RELATIVE PERCENT BY AUTOMATED COUNT7.9 %NormalMercy Health Allen HospitalComment on above:Order Comment: Abnormal CBC with auto diff reflexes to a manual diffResult Comment: This is an appended report. These results have been appended to a previously preliminary verified report.Performed By: #### CBCA ####[facility] ([facility])[address], [place] [address] VIRNEUTROPHILS ABSOLUTE COUNT BY AUTOMATED COUNT5.6 10*3/uLNormal1.5-6.6 [facility] HospitalComment on above:Order Comment: Abnormal CBC with auto diff reflexes to a manual diffResult Comment: This is an appended report. These results have been appended to a previously preliminary verified report.Performed By: #### CBCA ####[facility] ([facility])[address], [place] [address] VIRNEUTROPHILS RELATIVE PERCENT BY AUTOMATED COUNT69.2 % NormalMercy Health Allen HospitalComment on above:Order Comment: Abnormal CBC with auto diff reflexes to a manual diffResult Comment: This is an appended report. These results have been appended to a previously preliminary verified report.Performed By: #### CBCA ####[facility] ([facility])[address], [place] [address] VIRPlatelet mean volume (Bld) [Entitic vol] 8.8 fLNormal7-12PTriHealth Bethesda Butler HospitalComment on above:Order Comment: Abnormal CBC with auto diff reflexes to a manual diffPerformed By: #### CBCA ####[facility] ([facility])[address] [address] VIRPlatelets (Bld) [#/Vol]314 10*3/aDNncfue647-132HuuIowyij [facility] HospitalCompromedica [facility] on above:Order Comment: Abnormal CBC with auto diff reflexes to a manual diffPerformed By: #### CBCA ####[facility] ([facility])[address] [address] VIRRBC COUNT3.96 X10E12/LNormal 3.8-5.2PTriHealth Bethesda Butler HospitalCompromedica [facility] on above:Order Comment: Abnormal CBC with auto diff reflexes to a manual diffPerformed By: #### CBCA ####[facility] ([facility])[address] [address] VIR WBC (Bld) [#/Vol]8.0 10*3/uLNormal4-11[facility] HospitalCompromedica char[facility] on above:Order Comment: Abnormal CBC with auto diff reflexes to a manual diff Performed By: #### CBCA ####[facility] ([facility])[address] [address] VIRCK TOTALon 11-12-3828VAW158 U/BWtmm38-087 [facility] HospitalComment on above:Performed By: #### CPK ####[facility] ([facility])[address] [address] VIR36 on [id number] up call made to get pt scheduled for follow up appt, VM was left on Pts daughter phone.NormalUnWadsworth-Rittman Hospital36Labs are in Chart NormalUnWadsworth-Rittman HospitalBASIC METABOLIC PANELon 53-50-6806Vtwdc gap [Moles/Vol]9 mmol/LNormal5-15ProMedica Barrington HospitalComment on above: Performed By: #### BMP ####[facility] ([facility])[address] [address] VIRCalcium [Mass/Vol]9.2 mg/dLNormal8.5-10.5 [facility] HospitalComment on above:Performed By: #### BMP ####[facility] ([facility])[address] [facility] [address] [address] VIR Chloride [Moles/Vol]96 mmol/ZTwv80-945AkmJpmdurMercy Health Allen HospitalComment on above:Performed By: #### BMP ####[facility] ([facility])[address] [facility] [address] [address] VIRCO2 [Moles/Vol]31 mmol/TCctlqa95-66 [facility] HospitalComment on above:Performed By: #### BMP ####[facility] ([facility])[address] [facility] [address] [address] VIR Creatinine [Mass/Vol]1.58 mg/dLHigh0.40-1.00[facility] HospitalComment on above:Result Comment: METHOD TRACEABLE TO IDMS STANDARDPerformed By: #### BMP ####[facility] ([facility])[address] [facility] [address] [address] VIRGFR/1.73 sq M.predicted among non-blacks MDRD (S/P/Bld) [Vol rate/Area] 33 mL/min/{1.73_m2}Low>=60ProWhite Rock Medical CenterComment on above:Result Comment: Reported eGFR is based on theCKD-EPI 2020 equation that doesnot use a race coefficient.Performed By: #### BMP ####[facility] ([facility])[address] [facility] [address] [address] VIRGlucose [Mass/Vol]328 mg/dLHigh 65-99ProWhite Rock Medical CenterComment on above:Performed By: #### BMP ####[facility] ([facility])[address] [facility] [address] [place] [address] VIRPotassium [Moles/Vol]4.2 mmol/LNormal3.5-5.0[facility] Comment on above:Performed By: #### BMP ####[facility] ([facility])[address] [facility] [address]TO[facility],[place] [address] VIRSodium [Moles/Vol]136 mmol/L Butqgq009-502GwuRmpklzMercy Health Allen HospitalComment on above:Performed By: #### BMP ####[facility] ([facility])[address] [facility] [address] [address] VIRUrea nitrogen [Mass/Vol]22 mg/dLNormal5-27[facility] Comment on above:Performed By: #### BMP ####[facility] ([facility])[address] [facility] [address] [address] VIRBasic metabolic panelon 97-55-8789Kvmhq gap [Moles/Vol]9 mmol/L5 - 15 mmol/Pending sale to [facility]oMed[facility] Calcium [Mass/Vol]9.2 mg/dL8.5 - 10.5 mg/dLWright-Patterson Medical Center SystemChloride [Moles/Vol]96 mmol/LLow98 - 109 mmol/Pending sale to [facility] HealthoMedica Health SystemCO2 [Moles/Vol]31 mmol/L22 - 32 mmol/Pending sale to [facility] HealthoMedandalusia health Health SystemCreatinine [Mass/Vol]1.58 mg/dLHigh 0.40 - 1.00 mg/dLSumma Health Akron CampusComment on above:METHOD TRACEABLE TO IDMS STANDARDEGFR Non-Race Anqxlhhvp34Jcj- PINKindred HospitalComment on above:Reported eGFR is based on the CKD-EPI 2020 equation that does not use a race coefficient. Glucose [Mass/Vol]328 mg/bIInmg57 - 99 mg/dLWright-Patterson Medical Center SystemPotassium [Moles/Vol]4.2 mmol/L3.5 - 5.0 mmol/LProMedica Health SystemSodium [Moles/Vol] 136 mmol/L134 - 146 mmol/LProMedica Health SystemUrea nitrogen [Mass/Vol]22 mg/dL5 - 27 mg/dLSumma Health Akron CampusCBC WITH AUTO DIFFERENTIALon 03-26-2025 CELLAVISION DIFFERENTIAL TYPEMANUAL DIFFERENTIALNormalMercy Health [facility] Hospital Comment on above:Order Comment: Abnormal CBC with auto diff reflexes to a manual diffResult Comment: This is an appended report. These results have been appended to a previously preliminary verified report.Performed By: #### CBCA ####[facility] ([facility])[address], [place] [address] VIRCELLAVISION ELLIPTOCYTES IN BLOOD BY LIGHT MICROSCOPY1+NormalMercy Health Allen HospitalComment on above:Order Comment: Abnormal CBC with auto diff reflexes to a manual diffResult Comment: This is an appended report. These results have been appended to a previously preliminary verified report.Performed By: #### CBCA ####[facility] ([facility])[address], [place] [address] VIRCELLAVISION EOSINOPHILS ABSOLUTE COUNT (10*3/UL) BY MANUAL COUNT0.5 10*3/uLHigh0.0-0.4Mercy Health Allen HospitalComment on above: Order Comment: Abnormal CBC with auto diff reflexes to a manual diffResult Comment: This is an appended report. These results have been appended to a previously preliminary verified report.Performed By: #### CBCA ####[facility] ([facility])[address], [place] [address] VIR CELLAVISION EOSINOPHILS PERCENT BY MANUAL COUNT7 %NormalMercy Health Allen HospitalComment on above:Order Comment: Abnormal CBC with auto diff reflexes to a manual diffResult Comment: This is an appended report. These results have been appended to a previously preliminary verified report.Performed By: #### CBCA ####[facility] ([facility])[address], [place] [address] VIRCELLAVISION LYMPHOCYTES ABSOLUTE COUNT (10*3/UL) BY MANUAL COUNT0.9 10*3/uLLow1.0-3.5PTriHealth Bethesda Butler HospitalComment on above:Order Comment: Abnormal CBC with auto diff reflexes to a manual diffResult Comment: This is an appended report. These results have been appended to a previously preliminary verified report.Performed By: #### CBCA ####[facility] ([facility])[address] [facility] [address] [address] VIRCELLAVISION LYMPHOCYTES RELATIVE PERCENT BY MANUAL COUNT12 %NormalProWhite Rock Medical CenterCompromedica charles and [facility]ick[facility] hospital on above:Order Comment: Abnormal CBC with auto diff reflexes to a manual diffResult Comment: This is an appended report. These results have been appended to a previously preliminary verified report.Performed By: #### CBCA ####[facility] ([facility])[address] [facility] [address], [place] [address] VIR CELLAVISION MONOCYTES ABSOLUTE COUNT (10*3/UL) IN BLOOD BY MANUAL COUNT0.4 10*3/uLNormal0.0-0.9ProWhite Rock Medical CenterCompromedica charles and [facility] on above:Order Comment: Abnormal CBC with auto diff reflexes to a manual diffResult Comment: This is an appended report. These results have been appended to a previously preliminary verified report.Performed By: #### CBCA ####[facility] ([facility])[address] [address] VIRCELLAVISION MONOCYTES RELATIVE PERCENT BY MANUAL COUNT5 %NormalProWhite Rock Medical CenterCompromedica charles and [facility] hospital on above:Order Comment: Abnormal CBC with auto diff reflexes to a manual diffResult Comment: This is an appended report. These results have been appended to a previously preliminary verified report.Performed By: #### CBCA ####[facility] ([facility])[address] [facility] [address]TO[facility] [address] VIRCELLAVISION NEUTROPHILS ABSOLUTE COUNT BY MANUAL COUNT5.5 10*3/uLNormal1.5-6.6ProWhite Rock Medical CenterComment on above:Order Comment: Abnormal CBC with auto diff reflexes to a manual diffResult Comment: This is an appended report. These results have been appended to a previously preliminary verified report.Performed By: #### CBCA ####[facility] ([facility])[address], [place] [address] VIRCELLAVISION NEUTROPHILS RELATIVE PERCENT BY MANUAL COUNT 76 %NormalProWhite Rock Medical CenterComment on above:Order Comment: Abnormal CBC with auto diff reflexes to a manual diffResult Comment: This is an appended report. These results have been appended to a previously preliminary verified report.Performed By: #### CBCA ####[facility] ([facility])[address], [place] [address] VIRErythrocyte distribution width (RBC) [Ratio]16.8 %High11.5-15ProWhite Rock Medical CenterCompromedica charles and [facility] hospital on above:Order Comment: Abnormal CBC with auto diff reflexes to a manual diffPerformed By: #### CBCA ####[facility] ([facility])[address] [facility] [address], [place] [address] VIRHematocrit (Bld) [Volume fraction]28.9 %Frv26-23CooKriluaWhite Rock Medical CenterComment on above:Order Comment: Abnormal CBC with auto diff reflexes to a manual diffPerformed By: #### CBCA ####[facility] ([facility])[address], [place] [address] VIRHemoglobin (Bld) [Mass/Vol]9.5 g/dLLow11.7-15.5PTriHealth Bethesda Butler HospitalComment on above:Order Comment: Abnormal CBC with auto diff reflexes to a manual diffPerformed By: #### CBCA ####[facility] ([facility])[address] [facility] [address], [place] [address] VIRH (RBC) [Entitic mass]27.7 gtLdhzjm09-84RvkVonmphWhite Rock Medical CenterComment on above:Order Comment: Abnormal CBC with auto diff reflexes to a manual diffPerformed By: #### CBCA ####[facility] ([facility])[address], [place] [address] VIRMCHC (RBC) [Mass/Vol]32.9 g/bCUsrhve20-58CmcHpgzoiWhite Rock Medical CenterComment on above:Order Comment: Abnormal CBC with auto diff reflexes to a manual diffPerformed By: #### CBCA ####[facility] ([facility])[address] [address] VIRMCV (RBC) [Entitic vol]84 cWFvlqjk91-536WulMaspeqMercy Health Allen HospitalCompromedica charles and [facility] hospital on above:Order Comment: Abnormal CBC with auto diff reflexes to a manual diffPerformed By: #### CBCA ####[facility] ([facility])[address] [address] VIRPlatelet mean volume (Bld) [Entitic vol]9.1 fLNormal7-12PTriHealth Bethesda Butler HospitalCompromedica charles and [facility] hospital on above:Order Comment: Abnormal CBC with auto diff reflexes to a manual diffPerformed By: #### CBCA ####[facility] ([facility])[address] [address] VIRPlatelets (Bld) [#/Vol]233 10*3/nLScapnl848-739ApqZkzqoy Fremont HospitalCompromedica char[facility] on above:Order Comment: Abnormal CBC with auto diff reflexes to a manual diffPerformed By: #### CBCA ####[facility] ([facility])[address] [place] [address] VIRRBC COUNT3.43 X10E12/LLow3.8-5.2PTriHealth Bethesda Butler HospitalCompromedica char[facility] and [facility] hospital on above:Order Comment: Abnormal CBC with auto diff reflexes to a manual diffPerformed By: #### CBCA ####[facility] ([facility])[address] [place] [address] VIRWBC (Bld) [#/Vol]7.3 10*3/uLNormal4-11Mercy Health Allen HospitalCompromedica charles and virgin[facility]ick[facility] hospital on above:Order Comment: Abnormal CBC with auto diff reflexes to a manual diff Performed By: #### CBCA ####[facility] ([facility])[address] [place] [address] VIRCK TOTALon [id number] U/RLnvj34-391 [facility] Allen HospitalComment on above:Performed By: #### CPK ####[facility] ([facility])[address] [address] VIRCK Totalon [id number] [Catalytic activity/Vol]265 U/LHigh24 - 170 U/LProMedica [facility] Regional [facility] SystemNo Panel Informationon 07-69-3902Rtnchxzyrpzfnn and review of laboratory resultsAbnormalProMedict Health SystemProMercy Health [facility] SystemCT LUMBAR SPINE WO CONTon 43-83-8708OE LUMBAR SPINE WO CONTNormalProWhite Rock Medical Center36on 96-23-257757Gdsi are in PromedicaNormalUniversity of Cedar Park Regional Medical CenterBASI METABOLIC PANELon 44-15-4757Ythgd gap [Moles/Vol]11 mmol/LNormal5-15 [facility] HospitalComment on above:Performed By: #### BMP ####[facility] ([facility])[address] [address] VIR Calcium [Mass/Vol]9.4 mg/dLNormal8.5-10.5PTriHealth Bethesda Butler HospitalComment on above:Performed By: #### BMP ####[facility] ([facility])[address] [address] VIRChloride [Moles/Vol]99 mmol/FXbqtab79-231 [facility] Allen HospitalComment on above:Performed By: #### BMP ####[facility] ([facility])[address] [address] VIRCO2 [Moles/Vol]28 mmol/AYaippb16-35HugYgxumeTriHealth Bethesda Butler HospitalComment on above: Performed By: #### BMP ####[facility] ([facility])[address] [address] VIRCreatinine [Mass/Vol]1.83 mg/dLHigh0.40-1.00 [facility] Allen HospitalComment on above:Result Comment: METHOD TRACEABLE TO IDMS STANDARDPerformed By: #### BMP ####[facility] ([facility])[address] [address] VIRGFR/1.73 sq M.predicted among non-blacks MDRD (S/P/Bld) [Vol rate/Area]28 mL/min/{1.73_m2}Low>=60ProWhite Rock Medical CenterComment on above:Result Comment: Reported eGFR is based on theCKD-EPI 2020 equation that doesnot use a race coefficient.Performed By: #### BMP ####[facility] ([facility])[address], [place] [address] VIRGlucose [Mass/Vol]286 mg/bIPgxo95-24OoyPrpiikMercy Health Allen Hospital Comment on above:Performed By: #### BMP ####[facility] ([facility])[address] [address] VIRPotassium [Moles/Vol]4.4 mmol/L Normal3.5-5.0Mercy Health Allen HospitalComment on above:Performed By: #### BMP ####[facility] ([facility])[address] [address] VIRSodium [Moles/Vol]138 mmol/QSexiqa255-384IitNtoyisMercy Health Allen Hospital Comment on above:Performed By: #### BMP ####[facility] ([facility])[address] [address] VIRUrea nitrogen [Mass/Vol]33 mg/dL High5-27ProWhite Rock Medical CenterComment on above:Performed By: #### BMP ####[facility] ([facility])[address] [address] VIRCBC WITH AUTO DIFFERENTIALon 26-61-1394WAWRBPDBTTR DIFFERENTIAL TYPE MANUAL DIFFERENTIALNormalProWhite Rock Medical CenterComment on above:Order Comment: Abnormal CBC with auto diff reflexes to a manual diffResult Comment: This is an appended report. These results have been appended to a previously preliminary verified report.Performed By: #### CBCA ####[facility] ([facility])[address], [place] [address] VIRCELLAVISION ELLIPTOCYTES IN BLOOD BY LIGHT MICROSCOPY1+[facility] Comment on above:Order Comment: Abnormal CBC with auto diff reflexes to a manual diffResult Comment: This is an appended report. These results have been appended to a previously preliminary verified report.Performed By: #### CBCA ####[facility] ([facility])[address], [place] [address] VIRCELLAVISION EOSINOPHILS ABSOLUTE COUNT (10*3/UL) BY MANUAL COUNT0.4 10*3/uLNoCleveland Clinic Mercy HospitalComment on above:Order Comment: Abnormal CBC with auto diff reflexes to a manual diffResult Comment: This is an appended report. These results have been appended to a previously preliminary verified report.Performed By: #### CBCA ####[facility] ([facility])[address], [place] [address] VIRCELLAVISION EOSINOPHILS PERCENT BY MANUAL COUNT7 %Madison HealthComment on above:Order Comment: Abnormal CBC with auto diff reflexes to a manual diffResult Comment: This is an appended report. These results have been appended to a previously preliminary verified report.Performed By: #### CBCA ####[facility] ([facility])[address], [place] [address] VIRCELLAVISION LYMPHOCYTES ABSOLUTE COUNT (10*3/UL) BY MANUAL COUNT1.7 10*3/uLNoCleveland Clinic Mercy HospitalComment on above:Order Comment: Abnormal CBC with auto diff reflexes to a manual diffResult Comment: This is an appended report. These results have been appended to a previously preliminary verified report.Performed By: #### CBCA ####[facility] ([facility])[address], [place] [address] VIRCELLAVISION LYMPHOCYTES RELATIVE PERCENT BY MANUAL COUNT28 %Normal [facility] Allen HospitalComment on above:Order Comment: Abnormal CBC with auto diff reflexes to a manual diffResult Comment: This is an appended report. These results have been appended to a previously preliminary verified report. Performed By: #### CBCA ####[facility] ([facility])[address], [place] [address] VIRCELLAVISION MONOCYTES ABSOLUTE COUNT (10*3/UL) IN BLOOD BY MANUAL COUNT0.2 10*3/uLMadison Health Comment on above:Order Comment: Abnormal CBC with auto diff reflexes to a manual diffResult Comment: This is an appended report. These results have been appended to a previously preliminary verified report.Performed By: #### CBCA ####[facility] ([facility])[address], [place] [address] VIRCELLAVISION MONOCYTES RELATIVE PERCENT BY MANUAL COUNT4 %Normal [facility] Allen HospitalComment on above:Order Comment: Abnormal CBC with auto diff reflexes to a manual diffResult Comment: This is an appended report. These results have been appended to a previously preliminary verified report. Performed By: #### CBCA ####[facility] ([facility])[address], [place] [address] VIRCELLAVISION NEUTROPHILS ABSOLUTE COUNT BY MANUAL COUNT3.9 10*3/uLMadison HealthComment on above:Order Comment: Abnormal CBC with auto diff reflexes to a manual diffResult Comment: This is an appended report. These results have been appended to a previously preliminary verified report.Performed By: #### CBCA ####[facility] ([facility])[address], [place] [address] VIRCELLAVISION NEUTROPHILS RELATIVE PERCENT BY MANUAL COUNT61 %NormalMercy Health Allen Hospital Comment on above:Order Comment: Abnormal CBC with auto diff reflexes to a manual diffResult Comment: This is an appended report. These results have been appended to a previously preliminary verified report.Performed By: #### CBCA ####[facility] ([facility])[address] [facility] [address], [place] [address] VIRErythrocyte distribution width (RBC) [Ratio]17.9 %High11.5-15Mer[facility] Health Allen HospitalComment on above:Order Comment: Abnormal CBC with auto diff reflexes to a manual diffPerformed By: #### CBCA ####[facility] ([facility])[address] [facility] [address], [place] [address] VIRHematocrit (Bld) [Volume fraction]30.5 %Aqe94-32MilPyxxipMercy Health Allen HospitalComment on above:Order Comment: Abnormal CBC with auto diff reflexes to a manual diffPerformed By: #### CBCA ####[facility] ([facility])[address] [facility] [address], [place] [address] VIRHemoglobin (Bld) [Mass/Vol]10.0 g/dLLow11.7-15.5PTriHealth Bethesda Butler HospitalComment on above:Order Comment: Abnormal CBC with auto diff reflexes to a manual diffPerformed By: #### CBCA ####[facility] ([facility])[address] [facility] [address], [place] [address] VIRMCH (RBC) [Entitic mass]28.5 btIwnxmm54-23YhiBouqrcMercy Health Allen HospitalComment on above:Order Comment: Abnormal CBC with auto diff reflexes to a manual diffPerformed By: #### CBCA ####[facility] ([facility])[address] [place] [address] VIRMCHC (RBC) [Mass/Vol]33.0 g/cUMkkvly22-54VqgAdoglpMercy Health Allen Hospital Comment on above:Order Comment: Abnormal CBC with auto diff reflexes to a manual diffPerformed By: #### CBCA ####[facility] ([facility])[address] [facility] [address], [place] [address] VIRMCV (RBC) [Entitic vol]86 pQRrcrry00-809 [facility] HospitalComment on above:Order Comment: Abnormal CBC with auto diff reflexes to a manual diffPerformed By: #### CBCA ####[facility] ([facility])[address] [facility] [address]TOSELECT [facility] [place] [address] VIRPlatelet mean volume (Bld) [Entitic vol]9.2 fLNormal7-12PSelect Medical Specialty [facility] on above:Order Comment: Abnormal CBC with auto diff reflexes to a manual diff Performed By: #### CBCA ####[facility] ([facility])[address] [facility] [address], [place] [address] VIRPlatelets (Bld) [#/Vol]261 10*3/uLNormal 150-450ProWhite Rock Medical CenterCompromedica charles and [facility] on above:Order Comment: Abnormal CBC with auto diff reflexes to a manual diffPerformed By: #### CBCA ####[facility] ([facility])[address] [facility] [address], [place] [address] VIR RBC COUNT3.52 X10E12/LLow3.8-5.2PTriHealth Bethesda Butler HospitalCompromedica [facility] on above:Order Comment: Abnormal CBC with auto diff reflexes to a manual diffPerformed By: #### CBCA ####[facility] ([facility])[address] [facility] [address], [place] [address] VIRWBC (Bld) [#/Vol]6.2 10*3/uLNormal4-11Mer[facility] HospitalCompromedica [facility] on above:Order Comment: Abnormal CBC with auto diff reflexes to a manual diffPerformed By: #### CBCA ####[facility] ([facility])[address] [facility] [address], [place] [address] VIRCBC WITH AUTO DIFFERENTIALon [id number] ABSOLUTE COUNT (10*3/UL) BY AUTOMATED COUNT0.1 10*3/uLNormal [facility] on above:Performed By: #### CBCA ####PROMMER[facility]A [facility] ([address], [id number] VIRBASOPHILS RELATIVE PERCENT BY AUTOMATED COUNT1.3 %NormalProWhite Rock Medical CenterComment on above:Performed By: #### CBCA ####[facility] ([address], [id number] VIRCELLAVISION DIFFERENTIAL TYPE AUTOMATED DIFFERENTIALNormHighland District HospitalCompromedica [facility] on above:Performed By: #### CBCA ####[facility] ([address], [id number] VIREosinophils (Bld) [#/Vol]0.6 10*3/uLNormalMercy Health Allen HospitalCompromedica [facility] on above:Performed By: #### CBCA ####[facility] ([address], [id number] VIREOSINOPHILS RELATIVE PERCENT BY AUTOMATED COUNT6.9 %NormalMercy Health Allen HospitalComment on above:Performed By: #### CBCA ####[facility] ([address], [id number] VIRErythrocyte distribution width (RBC) [Ratio]17.5 %High11.5-15Mer[facility] HospitalCompromedica char[facility] on above:Performed By: #### CBCA ####[facility] ([address], [id number] VIRHematocrit (Bld) [Volume fraction]27.7 %Ckc92-50 [facility] HospitalCompromedica charles and [facility] on above:Performed By: #### CBCA ####[facility] ([address], [id number] VIRHemoglobin (Bld) [Mass/Vol]9.3 g/dLLow11.7-15.5ProMedica Highland Springs Surgical CenterComment on above: Performed By: #### CBCA ####[facility] ([address], [id number] VIRLYMPHOCYTES ABSOLUTE COUNT (10*3/UL) BY AUTOMATED COUNT2.5 10*3/uLNoEssex County HospitalWhite Rock Medical CenterComment on above:Performed By: #### CBCA ####[facility] ([facility])[address] [place], [place] [address], [id number] VIRLYMPHOCYTES RELATIVE PERCENT BY AUTOMATED COUNT29.1 % NormalMercy Health Allen HospitalComment on above:Performed By: #### CBCA ####[facility] ([address], [id number] VIRMCH (RBC) [Entitic mass]28.9 ssDofkts89-30YwbHlguggWhite Rock Medical CenterComment on above:Performed By: #### CBCA ####[facility] ([address], [id number] VIRMCHC (RBC) [Mass/Vol]33.7 g/dLNormal 32-36ProWhite Rock Medical CenterComment on above:Performed By: #### CBCA ####[facility] ([address], [id number] VIRMCV (RBC) [Entitic vol]86 wVSyzwxu61-941ZnqYyvopt Fremont HospitalComment on above:Performed By: #### CBCA ####[facility], [facility] ([address], [id number] VIRMONOCYTES ABSOLUTE COUNT (10*3/UL) BY AUTOMATED COUNT0.9 10*3/uLNormalMercy Health Allen HospitalComment on above: Performed By: #### CBCA ####[facility] ([address], [id number] VIRMONOCYTES RELATIVE PERCENT BY AUTOMATED COUNT10.6 % NormalMercy Health Allen HospitalComment on above:Performed By: #### CBCA ####[facility] ([address], [id number] VIRNEUTROPHILS ABSOLUTE COUNT BY AUTOMATED COUNT4.4 10*3/uLNormalProWhite Rock Medical CenterComment on above:Performed By: #### CBCA ####[facility] ([address] [place], [id number] VIRNEUTROPHILS RELATIVE PERCENT BY AUTOMATED COUNT52.1 %NormalProWhite Rock Medical CenterComment on above:Performed By: #### CBCA ####[facility] ([address], [id number] VIRPlatelet mean volume (Bld) [Entitic vol]8.8 fLNormal7-12PTriHealth Bethesda Butler HospitalComment on above:Performed By: #### CBCA ####[facility] ([address], [id number] VIRPlatelets (Bld) [#/Vol]274 10*3/lUArxggz236-062GsgYfcxmg [place] HospitalComment on above:Performed By: #### CBCA ####[facility] ([address], [id number] VIRRBC COUNT3.22 X10E12/LLow3.8-5.2PTriHealth Bethesda Butler HospitalComment on above:Performed By: #### CBCA ####[facility] ([address] [place] [address] VIRWBC (Bld) [#/Vol]8.5 10*3/uLNormal4-11ProWhite Rock Medical CenterComment on above:Performed By: #### CBCA ####[facility] ([address], [id number] VIRCOMPREHENSIVE METABOLIC PANELon 58-32-4444Bphsuay [Mass/Vol]3.3 g/dLNormal3.2-5.3PTriHealth Bethesda Butler Hospital Comment on above:Performed By: #### CMP ####[facility] ([address] [place] [address] VIRALP [Catalytic activity/Vol]107 U/L Wekqdu66-925RovWfyelfWhite Rock Medical CenterComment on above:Performed By: #### CMP ####[facility] ([facility])[address], [place] [address] VIRALT [Catalytic activity/Vol]17 U/LNormal<=31PTriHealth Bethesda Butler Hospital Comment on above:Performed By: #### CMP ####[facility] ([facility])[address] [place] [address] VIRAnion gap [Moles/Vol]10 mmol/L Normal5-15ProWhite Rock Medical CenterComment on above:Performed By: #### CMP ####[facility] ([facility], [place] [address] VIRAST [Catalytic activity/Vol]30 U/LNormal<=41[facility] Comment on above:Performed By: #### CMP ####[facility] ([facility] [place] [address] VIRBilirubin [Mass/Vol]0.4 mg/dLNormal 0.3-1.2PTriHealth Bethesda Butler HospitalComment on above:Performed By: #### CMP ####[facility] ([place] [address], [place] [address] VIRCalcium [Mass/Vol]8.9 mg/dLNormal8.5-10.5PTriHealth Bethesda Butler Hospital Comment on above:Performed By: #### CMP ####[facility] ([facility] [place] [address] VIRChloride [Moles/Vol]101 mmol/L Dfdhgi07-879TsuWevkhiWhite Rock Medical CenterComment on above:Performed By: #### CMP ####[facility] ([facility], [place] [address] VIRCO2 [Moles/Vol]26 mmol/FYboupo06-33DtsFfnsrj [facility] Surgical CenterComment on above:Performed By: #### CMP ####[facility] ([address] [place] [address] VIRCreatinine [Mass/Vol]1.83 mg/dLHigh0.40-1.00 [facility] HospitalComment on above:Result Comment: METHOD TRACEABLE TO IDMS STANDARDPerformed By: #### CMP ####[facility] ([address] [address] VIRGFR/1.73 sq M.predicted among non- blacks MDRD (S/P/Bld) [Vol rate/Area]28 mL/min/{1.73_m2}Low>=60ProWhite Rock Medical CenterComment on above:Result Comment: eGFR not reported due to non-numeric value for Creatinine.Reported eGFR is based ontheCKD-EPI 2020 equation that doesnot use a race coefficient.Performed By: #### CMP ####[facility] ([address] [address] VIRGlucose [Mass/Vol]152 mg/tODtjv86-53WndPgakwvMercy Health Allen HospitalComment on above:Performed By: #### CMP ####[facility] ([address] [address] VIRPotassium [Moles/Vol]4.3 mmol/LNormal3.5-5.0Mercy Health Allen HospitalComment on above:Performed By: #### CMP ####[address] [address] VIRProtein [Mass/Vol]7.2 g/dLNormal6.0-8.0Mercy Health Allen HospitalComment on above: Performed By: #### CMP ####[address] [place] [address] VIRSodium [Moles/Vol]137 mmol/FTgzsft764-793HafWzjekl [facility] HospitalComment on above:Performed By: #### CMP ####[facility] ([address] [place] [address] VIRUrea nitrogen [Mass/Vol]35 mg/dLHigh5-27ProWhite Rock Medical CenterComment on above:Performed By: #### CMP ####[facility] ([address] [place] [address] VIRMAGNESIUMon 62-66-9909Yddpaidwf [Mass/Vol]1.8 mg/dL Normal1.8-2.6ProWhite Rock Medical CenterComment on above:Performed By: #### MG ####[facility] ([address], [place] [address] VIRBEDSIDE GLUCOSEon 59-85-5723Dtoiqba [Mass/Vol]228 mg/xPOapo70-73LpqQxcvwnMercy Health Allen HospitalComment on above:Performed By: #### BEDG ####[facility] ([address], [place] VIRGlucose [Mass/Vol] 331 mg/uRUlbu42-88YvtNitpvcMercy Health Allen HospitalComment on above:Performed By: #### BEDG ####[facility] ([address] [place] [address] VIRGlucose [Mass/Vol]259 mg/qYSyjw99-05FrqJwjuutWhite Rock Medical CenterComment on above:Performed By: #### BEDG ####[facility] ([address], [place] VIRCBC WITH AUTO DIFFERENTIALon 12-78-0728TXWAPJESP ABSOLUTE COUNT (10*3/UL) BY AUTOMATED COUNT0.1 10*3/uLNormal [facility] HospitalComment on above:Performed By: #### CBCA ####[facility] ([address], [id number] VIRBASOPHILS RELATIVE PERCENT BY AUTOMATED COUNT0.6 %NormalMercy Health Allen HospitalComment on above:Performed By: #### CBCA ####[facility] ([address], [id number] VIREosinophils (Bld) [#/Vol]0.5 10*3/uL NormalMercy Health Allen HospitalComment on above:Performed By: #### CBCA ####[facility] ([address], [id number] VIREOSINOPHILS RELATIVE PERCENT BY AUTOMATED COUNT6.2 %Madison HealthComment on above:Performed By: #### CBCA ####[facility] ([address], [id number] VIRErythrocyte distribution width (RBC) [Ratio]17.6 %High11.5-15Mercy Health Allen HospitalComment on above: Performed By: #### CBCA ####[facility] ([address], [id number] VIRHematocrit (Bld) [Volume fraction]28.8 %Dlg08-29 [facility] HospitalComment on above:Performed By: #### CBCA ####[facility] ([address], [id number] VIRHemoglobin (Bld) [Mass/Vol]9.7 g/dLLow11.7-15.5ProMedica Highland Springs Surgical CenterComment on above: Performed By: #### CBCA ####[facility] ([address], [id number] VIRLYMPHOCYTES ABSOLUTE COUNT (10*3/UL) BY AUTOMATED COUNT2.3 10*3/uLNormalMercy Health Allen HospitalComment on above:Performed By: #### CBCA ####[facility] ([address], [id number] VIRLYMPHOCYTES RELATIVE PERCENT BY AUTOMATED COUNT27.4 % NormalMercy Health Allen HospitalComment on above:Performed By: #### CBCA ####[facility] ([facility])[address] [place] [address] AVE.[place], [id number] VIRMCH (RBC) [Entitic mass]28.5 fiBigpwj85-03JpdIhyqipWhite Rock Medical CenterComment on above:Performed By: #### CBCA ####[facility] ([facility])[address] [place] [address] AVE.[place], [id number] VIRMCHC (RBC) [Mass/Vol]33.6 g/dLNormal 32-36ProWhite Rock Medical CenterComment on above:Performed By: #### CBCA ####[facility] ([address], [id number] VIRMCV (RBC) [Entitic vol]84.9 gXCnbxog61-375KjuGhqrzh [facility] HospitalComment on above:Performed By: #### CBCA ####[facility] ([address], [id number] VIRMONOCYTES ABSOLUTE COUNT (10*3/UL) BY AUTOMATED COUNT1.0 10*3/uLNoCleveland Clinic Mercy HospitalCompromedica charles and [facility] hospital on above: Performed By: #### CBCA ####[facility] ([address], [id number] VIRMONOCYTES RELATIVE PERCENT BY AUTOMATED COUNT11.3 % NormalProWhite Rock Medical CenterComment on above:Performed By: #### CBCA ####[facility] ([address], [id number] VIRNEUTROPHILS ABSOLUTE COUNT BY AUTOMATED COUNT4.6 10*3/uLNoCleveland Clinic Mercy HospitalComment on above:Performed By: #### CBCA ####[facility])[address] [place], [place] [address]VE[address], [id number] VIRNEUTROPHILS RELATIVE PERCENT BY AUTOMATED COUNT54.5 %NormalProWhite Rock Medical CenterComment on above:Performed By: #### CBCA ####[facility] ([facility])[address] [place], [place] [address], [id number] VIRPlatelet mean volume (Bld) [Entitic vol]8.2 fLNormal7-12PTriHealth Bethesda Butler HospitalComment on above:Performed By: #### CBCA ####[facility] ([address], [id number] VIRPlatelets (Bld) [#/Vol]253 10*3/mYNcpvtz955-772WewOshbcm [facility] HospitalComment on above:Performed By: #### CBCA ####[facility] ([address], [id number] VIRRBC COUNT3.40 X10E12/LLow3.8-5.2PTriHealth Bethesda Butler HospitalComment on above:Performed By: #### CBCA ####[facility] ([address] [place] [address] VIRWBC (Bld) [#/Vol]8.5 10*3/uLNormal4-11ProWhite Rock Medical CenterComment on above:Performed By: #### CBCA ####[facility] ([address], [id number] VIRCK TOTALon 56-65-1727YGW539 U/LHigh 24-170ProWhite Rock Medical CenterComment on above:Performed By: #### CPK ####[facility] ([facility])[address] [place], [place] [address], [place] [address] VIRCOMPREHENSIVE METABOLIC PANELon 01-71-1204Vamgbmk [Mass/Vol]3.5 g/dL Normal3.2-5.3ProMedica Barrington HospitalComment on above:Performed By: #### CMP ####[facility] ([address], [place] [address] VIRALP [Catalytic activity/Vol]110 U/WVthgtx41-383KfrHvtbbjWhite Rock Medical CenterComment on above:Performed By: #### CMP ####[facility] ([address] [place] [address] VIRALT [Catalytic activity/Vol]16 U/LNormal<=31PTriHealth Bethesda Butler HospitalComment on above: Performed By: #### CMP ####[facility] ([address] [place] [address] VIRAnion gap [Moles/Vol]10 mmol/LNormal5-15ProWhite Rock Medical CenterComment on above:Performed By: #### CMP ####[facility] ([address] [place] [address] VIRAST [Catalytic activity/Vol]25 U/LNormal<=41ProWhite Rock Medical CenterComment on above: Performed By: #### CMP ####[facility] ([address] [place] [address] VIRBilirubin [Mass/Vol]0.4 mg/dLNormal0.3-1.2 [facility] HospitalComment on above:Performed By: #### CMP ####[facility] ([address] [place] [address] VIRCalcium [Mass/Vol]9.2 mg/dLNormal8.5-10.5PUCHealth [facility] Hospital HospitalComment on above: Performed By: #### CMP ####[facility] ([address] [place] [address] VIRChloride [Moles/Vol]99 mmol/KCogzqw66-237KeoAclmwz [facility] HospitalComment on above:Performed By: #### CMP ####[facility] ([address] [place] [address] VIRCO2 [Moles/Vol]26 mmol/UPoibpi33-89YrkRgfatv [facility] HospitalComment on above:Performed By: #### CMP ####[facility] ([address] [place] [address] VIRCreatinine [Mass/Vol]1.80 mg/dLHigh0.40-1.00ProWhite Rock Medical Center Comment on above:Result Comment: METHOD TRACEABLE TO IDMS STANDARDPerformed By: #### CMP ####[facility] ([address] [address] VIRGFR/1.73 sq M.predicted among non-blacks MDRD (S/P/Bld) [Vol rate/Area]28 mL/min/{1.73_m2}Low>=60ProWhite Rock Medical CenterComment on above:Result Comment: Reported eGFR is based on theCKD-EPI 2020 equation that doesnot use a race coefficient.Performed By: #### CMP ####[facility] ([address] [place] [address] VIRGlucose [Mass/Vol]145 mg/zDTxcr89-21IddOpezaoWhite Rock Medical CenterComment on above:Performed By: #### CMP ####[facility] ([address] [place] [address] VIRPotassium [Moles/Vol]3.8 mmol/LNormal3.5-5.0ProWhite Rock Medical CenterComment on above:Performed By: #### CMP ####[facility] ([address] [address] VIRProtein [Mass/Vol]7.6 g/dLNormal6.0-8.0ProWhite Rock Medical CenterComment on above: Performed By: #### CMP ####[facility] ([address] [address] VIRSodium [Moles/Vol]135 mmol/BPtcafg894-930XigQmsyfz [facility] HospitalComment on above:Performed By: #### CMP ####[facility] ([address] [place] [address] VIRUrea nitrogen [Mass/Vol]27 mg/dLNormal5-27ProWhite Rock Medical CenterComment on above:Performed By: #### CMP ####[facility] ([address] [place] [address] VIRMAGNESIUMon 09-58-8729Nrhtpjhds [Mass/Vol]1.7 mg/dLLow 1.8-2.6ProWhite Rock Medical CenterComment on above:Performed By: #### MG ####[facility] ([address], [place] [address] VIRBEDSIDE GLUCOSEon 36-66-9769Zskoorc [Mass/Vol]216 mg/aZKmty95-30LuvXcirozWhite Rock Medical CenterComment on above:Performed By: #### BEDG ####[facility] ([address], [place] VIRGlucose [Mass/Vol] 170 mg/iYPebe68-71GwyJlwycbWhite Rock Medical CenterComment on above:Performed By: #### BEDG ####[facility] ([address] [place] [address] VIRGlucose [Mass/Vol]278 mg/jKLfni91-41RumOlsijxWhite Rock Medical CenterComment on above:Performed By: #### BEDG ####[facility] ([address], [place] VIRCBC WITH AUTO DIFFERENTIALon 71-96-3558JYKHZRBXS ABSOLUTE COUNT (10*3/UL) BY AUTOMATED COUNT0.0 10*3/uLNormal [facility] HospitalComment on above:Performed By: #### CBCA ####[facility] ([address], [id number] VIRBASOPHILS RELATIVE PERCENT BY AUTOMATED COUNT0.5 %NormalMercy Health Allen HospitalComment on above:Performed By: #### CBCA ####[facility] ([address], [id number] VIRCELLAVISION DIFFERENTIAL TYPE AUTOMATED DIFFERENTIALNoCleveland Clinic Mercy HospitalComment on above:Performed By: #### CBCA ####[facility] ([address], [id number] VIREosinophils (Bld) [#/Vol]0.5 10*3/uLNormHighland District HospitalComment on above:Performed By: #### CBCA ####[facility] ([address], [id number] VIREOSINOPHILS RELATIVE PERCENT BY AUTOMATED COUNT5.5 %NormalMercy Health Allen HospitalComment on above:Performed By: #### CBCA ####[facility] ([address], [id number] VIRErythrocyte distribution width (RBC) [Ratio]17.8 %High11.5-15Mer[facility] HospitalComment on above:Performed By: #### CBCA ####[facility] ([address], [id number] VIRHematocrit (Bld) [Volume fraction]29.6 %Hmp28-74 [facility] HospitalComment on above:Performed By: #### CBCA ####[facility] ([address], [id number] VIRHemoglobin (Bld) [Mass/Vol]9.7 g/dLLow11.7-15.5ProMedAlameda HospitalComment on above: Performed By: #### CBCA ####[facility] ([facility])[address] [place] [address] [address], [id number] VIRLYMPHOCYTES ABSOLUTE COUNT (10*3/UL) BY AUTOMATED COUNT1.6 10*3/uLNoCleveland Clinic Mercy HospitalComment on above:Performed By: #### CBCA ####[facility] ([facility])[address] [place], [place] [address], [id number] VIRLYMPHOCYTES RELATIVE PERCENT BY AUTOMATED COUNT17.7 % NormalMercy Health Allen HospitalComment on above:Performed By: #### CBCA ####[facility] ([address], [id number] VIRMCH (RBC) [Entitic mass]28.4 xuIoayzf68-71HvsMldkiwWhite Rock Medical CenterComment on above:Performed By: #### CBCA ####[facility] ([address], [id number] VIRMCHC (RBC) [Mass/Vol]32.9 g/dLNormal 32-36ProWhite Rock Medical CenterComment on above:Performed By: #### CBCA ####[facility] ([facility])[address] [place] [address] [place], [id number] VIRMCV (RBC) [Entitic vol]86 oZFdnfzd80-106FhxYlsqil [facility] HospitalComment on above:Performed By: #### CBCA ####[facility] ([facility])[address] [place] [address] [place], [id number] VIRMONOCYTES ABSOLUTE COUNT (10*3/UL) BY AUTOMATED COUNT0.9 10*3/uLNoCleveland Clinic Mercy HospitalCompromedica charles and [facility] hospital on above: Performed By: #### CBCA ####[facility] ([address], [id number] VIRMONOCYTES RELATIVE PERCENT BY AUTOMATED COUNT10.6 % NormalMercy Health Allen HospitalComment on above:Performed By: #### CBCA ####[facility] ([facility])[address] [place], [place] [address], [id number] VIRNEUTROPHILS ABSOLUTE COUNT BY AUTOMATED COUNT5.8 10*3/uLNormalProWhite Rock Medical CenterCompromedica charles and [facility] hospital on above:Performed By: #### CBCA ####[facility] ([address], [id number] VIRNEUTROPHILS RELATIVE PERCENT BY AUTOMATED COUNT65.7 %NormalMercy Health Allen HospitalComment on above:Performed By: #### CBCA ####[facility] ([address], [id number] VIRPlatelet mean volume (Bld) [Entitic vol]8.2 fLNormal7-12PTriHealth Bethesda Butler HospitalComment on above:Performed By: #### CBCA ####[facility] ([address], [id number] VIRPlatelets (Bld) [#/Vol]280 10*3/fGSnjlhn460-738AkeOmhzwkMercy Health Allen HospitalComment on above:Performed By: #### CBCA ####[facility] ([facility])[address] [place] [address] [address], [id number] VIRRBC COUNT3.44 X10E12/LLow3.8-5.2PTriHealth Bethesda Butler HospitalComment on above:Performed By: #### CBCA ####[facility] ([facility])[address] [place] [address] [place] [address] VIRWBC (Bld) [#/Vol]8.8 10*3/uLNormal4-11ProWhite Rock Medical CenterCompromedica charles [facility] on above:Performed By: #### CBCA ####[facility] ([facility])[address] [place], [place] [address], [id number] VIRCOMPREHENSIVE METABOLIC PANELon [id number] [Mass/Vol]3.5 g/dLNormal3.2-5.3PTriHealth Bethes[facility] Hospital Comment on above:Performed By: #### CMP ####[facility] ([address] [place] [address] VIRALP [Catalytic activity/Vol]119 U/L Sqnwod58-142UufMvjosaWhite Rock Medical CenterComment on above:Performed By: #### CMP ####[facility] ([address], [place] [address] VIRALT [Catalytic activity/Vol]17 U/LNormal<=31PTriHealth [facility] Comment on above:Performed By: #### CMP ####[facility] ([address] [facility] [address] VIRAnion gap [Moles/Vol]12 mmol/L Normal5-15ProWhite Rock Medical CenterComment on above:Performed By: #### CMP ####[facility] ([address], [place] [address] VIRAST [Catalytic activity/Vol]23 U/LNormal<=41[facility] Comment on above:Performed By: #### CMP ####[facility] ([address] [facility] [address] VIRBilirubin [Mass/Vol]0.6 mg/dLNormal 0.3-1.2PTriHealth Bethesda Butler HospitalComment on above:Performed By: #### CMP ####[facility] ([address], [place] [address] VIRCalcium [Mass/Vol]9.4 mg/dLNormal8.5-10.5PTriHealth [facility] Comment on above:Performed By: #### CMP ####[facility] ([address] [place] [address] VIRChloride [Moles/Vol]97 mmol/LLow 98-109ProWhite Rock Medical CenterComment on above:Performed By: #### CMP ####[facility] ([facility])[address] [place] [address].[place], [place] [address] VIRCO2 [Moles/Vol]25 mmol/TKkqhsv90-35HuzKygwwh [facility]remont HospitalComment on above:Performed By: #### CMP ####[facility] ([facility])[address] [place] [address] VIRCreatinine [Mass/Vol]1.53 mg/dLHigh0.40-1.00 [facility] Allen HospitalComment on above:Result Comment: METHOD TRACEABLE TO IDMS STANDARDPerformed By: #### CMP ####[facility] ([address] [address] VIRGFR/1.73 sq M.predicted among non- blacks MDRD (S/P/Bld) [Vol rate/Area]35 mL/min/{1.73_m2}Low>=60ProWhite Rock Medical CenterComment on above:Result Comment: eGFR not reported due to non-numeric value for Creatinine.Reported eGFR is based ontheCKD-EPI 2020 equation that doesnot use a race coefficient.Performed By: #### CMP ####[facility] ([address] [address] VIRGlucose [Mass/Vol]153 mg/cPSdmm82-65BjkWjjfuiWhite Rock Medical CenterComment on above:Performed By: #### CMP ####[facility] ([address] [address] VIRPotassium [Moles/Vol]3.9 mmol/LNormal3.5-5.0Mer[facility] Health Allen HospitalComment on above:Performed By: #### CMP ####[facility] ([facility])[address] [place] [address] VIRProtein [Mass/Vol]7.9 g/dLNormal6.0-8.0Mer[facility] Health Allen HospitalComment on above: Performed By: #### CMP ####[facility] ([facility])[address] [place] [address] [place] [address] VIRSodium [Moles/Vol]134 mmol/RUkqtyp875-390WpsJwwobg Fremont HospitalComment on above:Performed By: #### CMP ####[facility] ([address] [place] [address] VIRUrea nitrogen [Mass/Vol]24 mg/dLNormal5-27ProWhite Rock Medical CenterComment on above:Performed By: #### CMP ####[facility] ([address] [place] [address] VIRMAGNESIUMon 07-55-4548Yyllaqryb [Mass/Vol]1.8 mg/dL Normal1.8-2.6ProWhite Rock Medical CenterComment on above:Performed By: #### MG ####[facility] ([address], [place] [address] [id number] [phone]'s daughter called to cancel upcoming appointment with Cliff on 03/19/25 as patient is currently hospitalized. Daughter stated she will reschedule when patient is discharged and back at SNF.[facility] 36Spoke with Raina at [facility] infusion. [...] Will follow Er visit to determine pt disposition.[facility] HospitalBASIC METABOLIC PANELon 17-82-9806Mxome gap [Moles/Vol]9 mmol/L Normal5-15ProWhite Rock Medical CenterComment on above:Performed By: #### BMP ####[facility] ([address], [place] [address] VIRCalcium [Mass/Vol]9.6 mg/dLNormal8.5-10.5PTriHealth [facility]hesda [facility] Hospital Comment on above:Performed By: #### BMP ####[facility] ([address] [place] [address] VIRChloride [Moles/Vol]102 mmol/L Fnykof49-420OtcZkkrkyWhite Rock Medical CenterComment on above:Performed By: #### BMP ####[facility] ([address], [place] [address] VIRCO2 [Moles/Vol]27 mmol/VSxsash60-87LxsToffwhTriHealth Bethesda Butler HospitalComment on above:Performed By: #### BMP ####[address] [address] VIRCreatinine [Mass/Vol]1.59 mg/dLHigh0.40-1.00 [facility] HospitalComment on above:Result Comment: METHOD TRACEABLE TO IDMS STANDARDPerformed By: #### BMP ####[facility] ([address] [address] VIRGFR/1.73 sq M.predicted among non- blacks MDRD (S/P/Bld) [Vol rate/Area]33 mL/min/{1.73_m2}Low>=60ProWhite Rock Medical CenterComment on above:Result Comment: eGFR not reported due to non-numeric value for Creatinine.Reported eGFR is based ontheCKD-EPI 2021 equation that doesnot use a race coefficient.Performed By: #### BMP ####[facility] ([address] [place] [address] VIRGlucose [Mass/Vol]179 mg/lWAmgu84-88IyuOhilqwWhite Rock Medical CenterComment on above:Performed By: #### BMP ####[facility] ([address] [address] VIRPotassium [Moles/Vol]4.6 mmol/LNormal3.5-5.0ProWhite Rock Medical CenterComment on above:Performed By: #### BMP ####[facility] ([address] [place] [address] VIRSodium [Moles/Vol]138 mmol/MRqruuf798-948HrdVkfuuz [facility]remont HospitalComment on above: Performed By: #### BMP ####[facility] ([address] [place] [address] VIRUrea nitrogen [Mass/Vol]25 mg/dLNoal5-27 [facility] HospitalComment on above:Performed By: #### BMP ####[facility] ([address] [place] [address] VIRBEDSIDE GLUCOSEon 17-75-3506Ioeuxjl [Mass/Vol]228 mg/zPJneo17-73GfnBoqjzqMercy Health Allen HospitalComment on above:Performed By: #### BEDG ####[facility] ([address] [id number] VIRGlucose [Mass/Vol]160 mg/dL Sywl86-52TamQjizthMercy Health Allen HospitalComment on above:Performed By: #### BEDG ####[facility] ([address] [id number] VIRCBC WITH AUTO DIFFERENTIALon 89-15-0303UUHPHNTCO ABSOLUTE COUNT (10*3/UL) BY AUTOMATED COUNT0.1 10*3/uLNoalMercy Health Allen HospitalComment on above: Performed By: #### CBCA ####[facility] ([address] [id number] VIRBASOPHILS RELATIVE PERCENT BY AUTOMATED COUNT0.6 % NormalProWhite Rock Medical CenterComment on above:Performed By: #### CBCA ####[facility] ([address], [id number] VIRCELLAVISION DIFFERENTIAL TYPEAUTOMATED DIFFERENTIALMadison HealthComment on above:Performed By: #### CBCA ####[facility] ([facility])[address] [place] [address].[place], [id number] VIREosinophils (Bld) [#/Vol] 0.2 10*3/uLNoCleveland Clinic Mercy HospitalComment on above:Performed By: #### CBCA ####[facility] ([address] [place] [address] VIREOSINOPHILS RELATIVE PERCENT BY AUTOMATED COUNT2.4 %NormalMercy Health Allen HospitalComment on above:Performed By: #### CBCA ####[facility] ([address], [id number] VIRErythrocyte distribution width (RBC) [Ratio]18.0 %High11.5-15[facility] Comment on above:Performed By: #### CBCA ####[facility] ([address], [id number] VIRHematocrit (Bld) [Volume fraction] 29.4 %Bbo75-20IrsQgonrtMercy Health Allen HospitalComment on above:Performed By: #### CBCA ####[facility] ([address], [id number] VIRHemoglobin (Bld) [Mass/Vol]9.7 g/dLLow11.7-15.5PTriHealth Bethesda Butler Hospital Comment on above:Performed By: #### CBCA ####[facility] ([address], [id number] VIRLYMPHOCYTES ABSOLUTE COUNT (10*3/UL) BY AUTOMATED COUNT1.2 10*3/uLNoCleveland Clinic Mercy HospitalComment on above:Performed By: #### CBCA ####[facility] ([facility])[address], [id number] VIRLYMPHOCYTES RELATIVE PERCENT BY AUTOMATED COUNT15.2 %NormalMercy Health Allen HospitalComment on above:Performed By: #### CBCA ####[facility] ([facility])[address]J[facility] [id number] VIRMCH (RBC) [Entitic mass]28.2 twKvlarn46-33IfyLcouhs [facility]remont HospitalComment on above:Performed By: #### CBCA ####[facility] ([facility])[address] [place], [place] [address]VE.[place], [id number] VIRMCHC (RBC) [Mass/Vol]32.9 g/zRFrrmnd48-28JhfKtjsadWhite Rock Medical CenterComment on above: Performed By: #### CBCA ####[facility] ([address], [id number] VIRMCV (RBC) [Entitic vol]86 hXJjeeov07-192AgrJlghnm [facility]ont HospitalComment on above:Performed By: #### CBCA ####[facility] ([facility])[address] [place], [place] [address] A[address].[facility], [id number] VIRMONOCYTES ABSOLUTE COUNT (10*3/UL) BY AUTOMATED COUNT0.7 10*3/uLElyria Memorial Hospital on above:Performed By: #### CBCA ####[facility] ([facility])[address] [place], [place] [address] A[address].[facility], [id number] VIRMONOCYTES RELATIVE PERCENT BY AUTOMATED COUNT8.5 %NormalMercy Health Allen HospitalComment on above:Performed By: #### CBCA ####[facility] ([facility])[address] [place], [place] [address].FREJ[facility], [id number] VIRNEUTROPHILS ABSOLUTE COUNT BY AUTOMATED COUNT5.9 10*3/uL NormalMercy Health Allen HospitalComment on above:Performed By: #### CBCA ####[facility] ([place] [address], [id number] VIRNEUTROPHILS RELATIVE PERCENT BY AUTOMATED COUNT73.3 %NormalProWhite Rock Medical CenterComment on above:Performed By: #### CBCA ####[facility] ([facility])[address] [place], [place] [address].[place], [id number] VIRPlatelet mean volume (Bld) [Entitic vol]7.8 fLNormal7-12PTriHealth Bethesda Butler HospitalComment on above: Performed By: #### CBCA ####[facility] ([address], [id number] VIRPlatelets (Bld) [#/Vol]275 10*3/yTZmdsbl606-024 [facility] HospitalComment on above:Performed By: #### CBCA ####[facility] ([address], [id number] VIRRBC COUNT 3.43 X10E12/LLow3.8-5.2PTriHealth Bethesda Butler HospitalComment on above:Performed By: #### CBCA ####[facility] ([address], [id number] VIRWBC (Bld) [#/Vol]8.1 10*3/uLNormal4-11ProWhite Rock Medical CenterComment on above:Performed By: #### CBCA ####[facility] ([address], [id number] VIRMAGNESIUMon 03-16-2025 Magnesium [Mass/Vol]1.9 mg/dLNormal1.8-2.6ProWhite Rock Medical CenterComment on above:Performed By: #### MG ####[facility] ([facility])[address] [place], [place] [address] [place] [address] VIRTROP I, HIGH SENSITIVITY 1 HOURon 03-16-2025 TROPONIN I, HIGH SENSITIVITY9 ng/LNormal<16ProWhite Rock Medical CenterComment on above:Performed By: #### [email or web address] ####[facility] ([address] [place] [address] VIRTROPONIN I, HIGH SENSITIVITY 0 HOURon 82-37-8668KMPCWTZY I, HIGH SENSITIVITY9 ng/LNormal<16[facility] Comment on above:Performed By: #### TNIHS0 ####[facility] ([facility])[address] [place] [address] [place] [address] VIRTelephoneon 03-16-2025 [id number] LuizRadhadanielle Casas 1945 F Date Provider Department Center 03/16/20252046[facility] Antonio He[facility] Family History Problem Relation Age of Onset Diabetes Mother Hypertension Father Coronary artery disease Father Family Status - Relation Status Age at Mother FatherNormalUniversSamaritan HospitalXR CHEST 1 VWon 41-37-2574XQ CHEST 1 VWNoCleveland Clinic Mercy Hospital36on [id number] from daughter stating her mother was having [...] Messages left for Benedicto and Raina at [employer] to pose this question.NormalUnWadsworth-Rittman HospitalBASIC METABOLIC PANELon 61-11-1037Nikhs gap [Moles/Vol]10 mmol/LNormal5-15[facility] Comment on above:Performed By: #### BMP ####[facility] ([address] [place] [address] VIRCalcium [Mass/Vol]9.0 mg/dLNormal 8.5-10.5ProMedica Highland Springs Surgical CenterComment on above:Performed By: #### BMP ####[facility] ([address], [place] [address] VIRChloride [Moles/Vol]100 mmol/OMqjoze33-073HwlBdogorWhite Rock Medical Center Comment on above:Performed By: #### BMP ####[facility] ([address] [place] [address] VIRCO2 [Moles/Vol]27 mmol/EFdxdob34-[address] HelenaComment on above:Performed By: #### BMP ####[facility] ([address] [address] VIR Creatinine [Mass/Vol]1.85 mg/dLHigh0.40-1.00Mer[facility] Health Allen HospitalComment on above:Result Comment: METHOD TRACEABLE TO IDNM STANDARDPerformed By: #### BMP ####[facility] ([address] [address] VIRGFR/1.73 sq M.predicted among non-blacks MDRD (S/P/Bld) [Vol rate/Area] 28 mL/min/{1.73_m2}Low>=60ProWhite Rock Medical CenterComment on above:Result Comment: eGFR not reported due to non-numeric value for Creatinine.Reported eGFR is based ontheCKD-EPI 2020 equation that doesnot use a race coefficient. Performed By: #### BMP ####[facility] ([address] [place] [address] VIRGlucose [Mass/Vol]222 mg/oQIwxr45-95ZztXzlsdpWhite Rock Medical CenterComment on above:Performed By: #### BMP ####[facility] ([address] [address] VIRPotassium [Moles/Vol]4.3 mmol/LNormal3.5-5.0ProWhite Rock Medical CenterComment on above: Performed By: #### BMP ####[facility] ([address] [address] VIRSodium [Moles/Vol]137 mmol/IZgwzmh689-631TyuFathrb Fremont HospitalComment on above:Performed By: #### BMP ####[facility] ([address] [place] [address] VIRUrea nitrogen [Mass/Vol]33 mg/dLHigh5-27ProWhite Rock Medical CenterCompromedica charles and [facility] hospital on above:Performed By: #### BMP ####[facility] ([address] [place] [address] VIRCBC WITH AUTO DIFFERENTIALon 70-58-3939PZRLRMQFD ABSOLUTE COUNT (10*3/UL) BY AUTOMATED COUNT0.1 10*3/uLNoCleveland Clinic Mercy HospitalCompromedica char[facility] on above:Order Comment: Abnormal CBC with auto diff reflexes to a manual diffPerformed By: #### CBCA ####[facility] ([address] [id number] VIRBASOPHILS RELATIVE PERCENT BY AUTOMATED COUNT1.0 %NormalMercy Health Allen HospitalCompromedica charles and [facility] hospital on above:Order Comment: Abnormal CBC with auto diff reflexes to a manual diffPerformed By: #### CBCA ####[facility] ([address], [id number] VIRCELLAVISION DIFFERENTIAL TYPEAUTOMATED DIFFERENTIALNoCleveland Clinic Mercy HospitalCompromedica char[facility] on above:Order Comment: Abnormal CBC with auto diff reflexes to a manual diffPerformed By: #### CBCA ####[facility] ([address], [id number] VIREosinophils (Bld) [#/Vol] 0.4 10*3/uLNoCleveland Clinic Mercy HospitalCompromedica char[facility] on above:Order Comment: Abnormal CBC with auto diff reflexes to a manual diffPerformed By: #### CBCA ####[facility] ([address], [id number] VIREOSINOPHILS RELATIVE PERCENT BY AUTOMATED COUNT6.3 %NormalMcKitrick Hospital on above:Order Comment: Abnormal CBC with auto diff reflexes to a manual diffPerformed By: #### CBCA ####[facility] ([address], [id number] VIRErythrocyte distribution width (RBC) [Ratio]18.5 %High11.5-15ProWhite Rock Medical CenterCompromedica charles and [facility] hick[facility] hospital on above:Order Comment: Abnormal CBC with auto diff reflexes to a manual diffPerformed By: #### CBCA ####[facility] ([address], [id number] VIRHematocrit (Bld) [Volume fraction]28.2 %Jex61-61UroZreugnMercy Health Allen HospitalCompromedica charles and [facility] on above:Order Comment: Abnormal CBC with auto diff reflexes to a manual diffPerformed By: #### CBCA ####[facility] ([address], [id number] VIRHemoglobin (Bld) [Mass/Vol]9.3 g/dL Low11.7-15.5PTriHealth Bethesda Butler HospitalCompromedica [facility] on above:Order Comment: Abnormal CBC with auto diff reflexes to a manual diffPerformed By: #### CBCA ####[facility] ([address], [id number] VIRLYMPHOCYTES ABSOLUTE COUNT (10*3/UL) BY AUTOMATED COUNT1.6 10*3/uLNormal [facility] on above:Order Comment: Abnormal CBC with auto diff reflexes to a manual diffPerformed By: #### CBCA ####[facility] ([address], [id number] VIRLYMPHOCYTES RELATIVE PERCENT BY AUTOMATED COUNT23.6 %NormalMercy Health Allen HospitalCompromedica char[facility] and [facility] on above:Order Comment: Abnormal CBC with auto diff reflexes to a manual diff Performed By: #### CBCA ####[facility] ([address], [id number] VIRMCH (RBC) [Entitic mass]28.4 zmRvzjtg22-76CtpKpvdrqMercy Health Allen HospitalCompromedica [facility] on above:Order Comment: Abnormal CBC with auto diff reflexes to a manual diffPerformed By: #### CBCA ####[facility] ([facility])[address] [place] [address] AVE.[place], [id number] VIRMCHC (RBC) [Mass/Vol]32.9 g/gQMwuapp82-48MzpNrwiotMcKitrick Hospital on above:Order Comment: Abnormal CBC with auto diff reflexes to a manual diffPerformed By: #### CBCA ####[facility] ([facility])[address] [place] [address] AVE.[place], [id number] VIRMCV (RBC) [Entitic vol]87 mBLeqoiw04-551DshInffti Fremont HospitalCompromedica char[facility] on above:Order Comment: Abnormal CBC with auto diff reflexes to a manual diff Performed By: #### CBCA ####[facility] ([facility])[address] [place] [address] AVE.[place], [id number] VIRMONOCYTES ABSOLUTE COUNT (10*3/UL) BY AUTOMATED COUNT0.7 10*3/uLNoUC [facility] on above:Order Comment: Abnormal CBC with auto diff reflexes to a manual diffPerformed By: #### CBCA ####[facility] ([address], [id number] VIRMONOCYTES RELATIVE PERCENT BY AUTOMATED COUNT10.1 %NormalProWhite Rock Medical CenterCompromedica charles and [facility]ick[facility] hospital on above:Order Comment: Abnormal CBC with auto diff reflexes to a manual diffPerformed By: #### CBCA ####[facility] ([facility])[address] [place] [address] AVE.[facility]REJ[facility], [id number] VIRNEUTROPHILS ABSOLUTE COUNT BY AUTOMATED COUNT3.9 10*3/uLMadison HealthCompromedica charles and [facility] hospital on above:Order Comment: Abnormal CBC with auto diff reflexes to a manual diffPerformed By: #### CBCA ####[facility] ([facility])[address] [place], [place] [address] [address] VIRNEUTROPHILS RELATIVE PERCENT BY AUTOMATED COUNT59.0 %NormalMcKitrick Hospital on above:Order Comment: Abnormal CBC with auto diff reflexes to a manual diffPerformed By: #### CBCA ####[facility] ([address], [id number] VIRPlatelet mean volume (Bld) [Entitic vol]8.9 fLNormal7-12ProMedAlameda HospitalCompromedica char[facility] and [facility] on above:Order Comment: Abnormal CBC with auto diff reflexes to a manual diffPerformed By: #### CBCA ####[facility] ([facility])[address] [place], [place] [address]E.[place], [place] [address] VIRPlatelets (Bld) [#/Vol]251 10*3/bFEdxaja540-505FqgLlkhid [facility] HospitalCompromedica [facility] on above:Order Comment: Abnormal CBC with auto diff reflexes to a manual diffPerformed By: #### CBCA ####[facility] ([address], [id number] VIRRBC COUNT3.26 X10E12/LLow3.8-5.2 [facility] HospitalCompromedica charles and [facility] on above:Order Comment: Abnormal CBC with auto diff reflexes to a manual diffPerformed By: #### CBCA ####[facility] ([address], [id number] VIRWBC (Bld) [#/Vol] 6.6 10*3/uLNormal4-11Mer[facility] HospitalCompromedica char[facility] and [facility] on above:Order Comment: Abnormal CBC with auto diff reflexes to a manual diffPerformed By: #### CBCA ####[facility] ([facility])[address] [place] [address] [address].[place]IS[place]A, [id number] VIRCK TOTALon [id number] U/LBzjnsp07-622MziIcdeqe Barrington HospitalComment on above:Performed By: #### CPK ####[facility] ([facility])[address] [place] [address] [id number] [phone] labs are in media with the CK and CBC still pending with no results at this timeNormalUniversity of [facility]edar Park [facility]36on [id number] received. Confirmed orders for meds, labs ,Eots with Sonia [facility]. Follow up appt scheduled.NormalMercy Health [facility]36Call to Sonia at [facility] and confirmed antibiotic orders, weekly labs and EOTs. Follow up appt scheduled.[facility] HospitalCBC AND AUTO DIFFon [id number] BASOPHIL0.0 X10E9/LNormal0.0-0.2[facility] Medical CenterComment on above:Performed By: #### CBCA, CMP, , 2157-04 ####[facility] ([id number])[address], [address] [place] [address] [id number] NEUTROPHIL3.4 X10E9/LNormal1.5-6.6ProDay[facility] Comment on above:Performed By: #### CBCA, CMP, , 2157-04 ####[facility] [facility] ([id number])[address], [address], [place] [address] Basophils/100 WBC (Bld)0.6 %NormalProDayton Children'S Hospital HospitalComment on above: Performed By: #### CBCA, CMP, 2157-04 ####[facility] ([id number])[address], [address] [place] [address]846Iakdddiegoa (Bld) [#/Vol] 0.3 10*3/uLNormal0.0-0.4ProSt. John Of God HospitalComment on above:Performed By: #### CBCA, CMP, , 2157-04 ####[facility] ([id number])[address], [address], [place] [address]Bhlovdabkdg/100 WBC (Bld) 4.3 %NormalProMedica Childers HospitalComment on above:Performed By: #### CBCA, CMP, , 2157-04 ####[facility] ([id number])[address], [address]TO[facility], [place] [address]Walyebpxtur distribution width (RBC) [Ratio]18.2 %High11.5-15.0ProMedica Childers HospitalComment on above:Performed By: #### CBCA, CMP, , 2157-04 ####[facility] ([id number])[address], [address], [place] [address]Hvwuinjmuw (Bld) [Volume fraction]24.1 %Low 35-47ProMedica Childers HospitalComment on above:Performed By: #### CBCA, CMP, , 2157-04 ####[facility] ([id number])[address], [address], [place] [address]Fzgeeeyfod (Bld) [Mass/Vol]7.9 g/dLLow11.7-15.5 [facility]ers HospitalComment on above:Performed By: #### CBCA, CMP, , 2157-04 ####[facility] ([id number])[address], [address], [place] [address]Bylpqqahrtw (Bld) [#/Vol]2.0 10*3/uLNormal1.0-3.5ProMedica Childers HospitalComment on above:Performed By: #### CBCA, CMP, , 2157-04 ####[facility] ([id number])[address], [address], [place] [address]Nbuazrjkvyk/100 WBC (Bld)30.7 %NormalProMedica Childers HospitalComment on above:Performed By: #### CBCA, CMP, , 2157-04 ####[facility] ([id number])[address], [address] [place] [address]KEX (RBC) [Entitic mass]27.7 ntIjezay20-73YeeRkpidu Childers HospitalComment on above:Performed By: #### CBCA, CMP, , 2157-04 ####[facility] ([id number])[address], [address] [place] [address] 74679FJOT (RBC) [Mass/Vol]32.7 g/sMUeukum47-20HhsUrcken Hcilders HospitalComment on above:Performed By: #### CBCA, CMP, , 2157-04 ####[facility] ([id number])[address], [address] [place] [address] 22534PSX (RBC) [Entitic vol]85 oVOtzqcu77-062 [facility]ers HospitalComment on above:Performed By: #### CBCA, CMP, , 2157-04 ####[facility] ([id number])[address], [address] [place] [address]Yoofepqzo (Bld) [#/Vol]0.8 10*3/uLNormal0-0.9ProMedica Childers HospitalComment on above:Performed By: #### CBCA, CMP, , 2157-04 ####[facility] ([id number])[address] [address] [place] [address] 265[address]Fehpitnkv/100 WBC (Bld)12.3 %NormalProMedica Childers HospitalComment on above:Performed By: #### CBCA, CMP, , 2157-04 ####[facility] ([id number])[address], [address] [place] [address]Njhwelsxtsh/100 WBC (Bld)52.1 %NormalProOur Lady Of Mercy Hospitalca [place] HospitalComment on above:Performed By: #### CBCA, CMP, , 2157-04 ####[facility] ([id number])[address], [address], [place] [address]Uttrmveb mean volume (Bld) [Entitic vol]7.9 fLNormal7-12[facility] [place] HospitalComment on above:Performed By: #### CBCA, CMP, , 2157-04 ####[facility] ([id number])[address], [address], [place] [address]Ibkabrmhd (Bld) [#/Vol]334 10*3/oDWjtgaq937-273 [facility] [place] HospitalComment on above:Performed By: #### CBCA, CMP, , 2157-04 ####[facility] ([id number])[address], [address] [place] [address] 199[address]VQN COUNT2.84 X10E12/LLow3.80-5.20ProDayton [facility]'S Hospital Hospital Comment on above:Performed By: #### CBCA, CMP, , 2157-04 ####[facility] ([id number])[address], [address] [place] [address] 98[address]OPI (Bld) [#/Vol]6.6 10*3/uLNormal4.0-11.0ProDayton Children'S Hospital HospitalComment on above: Performed By: #### CBCA, CMP, , 2157-04 ####[facility] ([id number])[address], [address] [place] [address] 05257TU [Catalytic activity/Vol] on 84-85-6340NKA69 U/AQybizn62-757ZhpXvckpr [place] HospitalComment on above: Performed By: #### CBCA, CMP, , 2157-04 ####[facility] ([id number])[address], [address], [place] [address]VZLCNATEATMMF METABOLIC PANELon 25-49-4829Mfyyfep [Mass/Vol]3.3 g/dLNormal3.2-5.3ProMedTri[facility] HospitalComment on above:Performed By: #### CARMEN CMP, , 2157-04 ####[facility] ([id number])[address], [address], [place] [address]DKC [Catalytic activity/Vol]90 U/UFjhlse73-816OtdHlhznf [place] [facility] Comment on above:Performed By: #### CARMEN CMP, , 2157-04 ####[facility] ([id number])[address], [address], [place] [address]LBO [Catalytic activity/Vol]18 U/LNormal0-31ProMedTri[facility] HospitalComment on above:Performed By: #### CARMEN CMP, , 2157-04 ####[facility] ([id number])[address], [address], [place] [address]Yyiur gap [Moles/Vol]6 mmol/LNormal5-15Pro[facility]iTr[facility] HospitalComment on above:Performed By: #### CARMEN CMP, , 2157-04 ####[facility] ([id number])[address], [address], [place] [address]MVA [Catalytic activity/Vol]17 U/LNormal0-41 [facility] HospitalComment on above:Performed By: #### CARMEN, CMP, , 2157-04 ####[facility] ([id number])[address], [address], [place] [address]Ghzlmfebs [Mass/Vol]0.3 mg/dLNormal0.3-1.2ProMedTriHealth [facility] HospitalComment on above:Performed By: #### RUBEN MORALES, , 2157-04 ####[facility] ([id number])[address], [address], [place] [address]Jcfmvls [Mass/Vol]8.5 mg/dLNormal8.5-10.5ProMedTriHealth [facility] HospitalComment on above:Performed By: #### RUBEN MORALES, , 2157-04 ####[facility] ([id number])[address], [address]TO[facility], [place] [address]Gvhfrjwx [Moles/Vol]105 mmol/KXetxwq27-019ZujVjtfjb [place] HospitalComment on above: Performed By: #### RUBEN MORALES, , 2157-04 ####[facility] ([id number])[address], [address]TO[facility], [place] [address]AV5 [Moles/Vol]28 mmol/L Snxhgr41-48ZibHszkug [place] HospitalComment on above:Performed By: #### RUBEN MORALES, , 2157-04 ####[facility] ([id number])[address], [address]TO[facility], [place] [address]Vwyjrgjmof [Mass/Vol]1.81 mg/dLHigh0.40-1.00 [facility] HospitalComment on above:Result Comment: METHOD TRACEABLE TO IDMS STANDARDPerformed By: #### RUBEN MORALES, , 2157-04 ####[facility] ([id number])[address], [address]TO[facility], [place] [address]BWY/1.73 sq M.predicted among non-blacks MDRD (S/P/Bld) [Vol rate/Area]28 mL/min/{1.73_m2} Low>59ProMediTr[facility] HospitalComment on above:Result Comment: Reported eGFR is based on theCKD-EPI 2020 equation that doesnot use a race coefficient.Performed By: #### RUBEN MORALES, , 2157-04 ####[facility] ([id number])[address], [address], [place] [address]Ysrvmkd [Mass/Vol]113 mg/dL Xbdk93-09PjxNkspgk Childers HospitalComment on above:Performed By: #### RUBEN MORALES, , 2157-04 ####[facility] ([id number])[address], [address], [place] [address]Tnojwffzl [Moles/Vol]4.8 mmol/LNormal3.5-5.0[facility] HospitalComment on above:Performed By: #### RUBEN MORALES, , 2157-04 ####[facility] ([id number])[address], [address], [place] [address]Vyzkmrx [Mass/Vol]6.5 g/dLNormal6.0-8.0[facility] HospitalComment on above:Performed By: #### RUBEN MORALES, , 2157-04 ####[facility] ([id number])[address] [address], [place] [address]Aglxxm [Moles/Vol]139 mmol/WXrwroo737-025HrwFsepov [facility] HospitalComment on above: Performed By: #### RUBEN MORALES, , 2157-04 ####[facility] ([id number])[address], [address], [place] [address]Yxuv nitrogen [Mass/Vol]28 mg/dLHigh5-27[facility] HospitalComment on above:Performed By: #### RUBEN MORALES, , 2157-04 ####[facility] ([id number])[address], [address], [place] [address]Zfidvdx Glucometer (BldC) [Mass/Vol]on 69-98-0320Qshofxe [Mass/Vol]266 mg/uIZrfz28-64QwaObqezr [place] HospitalGlucose [Mass/Vol]127 mg/qMKzxl34-31JqjFrcszv [place] HospitalMAGNESIUMon 02-24-2025 Magnesium [Mass/Vol]2.2 mg/dLNormal1.8-2.6ProSt. John Of God HospitalComment on above:Performed By: #### CBCA, CMP, 19036-6, 2157-6 ####[facility] ([id number])[address], [address] [place] [address]ASY AND AUTO DIFFon 11-85-4559Bkex form neutrophils/100 WBC (Bld)1.1 %NormalProSt. John Of God HospitalComment on above:Performed By: #### CBCA, CMP, , 52084-5 ####[facility] ([id number])[address] [address] [place] [address]Temdlgqgkfk (Bld) [#/Vol]0.3 10*3/uLNormal0.0-0.4[facility] Comment on above:Performed By: #### CBCA, CMP, , 15156-2 ####[facility] ([id number])[address], [address] [place] [address] Eosinophils/100 WBC (Bld)4.3 %NormalProSt. John Of God HospitalComment on above: Performed By: #### CBCA, CMP, , 43615-4 ####[facility] ([id number])[address], [address] [place] [address]Hrhxvvffhqk distribution width (RBC) [Ratio]17.8 %High11.5-15.0ProSt. John Of God HospitalComment on above: Performed By: #### CBCA, CMP, 48195-5, 44747-1 ####[facility] ([id number])[address], [address] [place] [address]ODEUUUPW0+AbnormalNONE [facility] HospitalComment on above:Performed By: #### CBCA, CMP, 05182-6, 31464-2 ####[facility] ([id number])[address], [address], [place] [address]Dtkkfmcnqs (Bld) [Volume fraction]25.6 %Xea05-60HsrBxegoj [place] HospitalComment on above:Performed By: #### CBCA, CMP, 55297-0, 72450-7 ####[facility] ([id number])[address], [address] [place] [address]Geygwxvqzg (Bld) [Mass/Vol]8.4 g/dLLow11.7-15.5PProtestant Hospital Comment on above:Performed By: #### CBCA, CMP, , 55625-0 ####[facility] ([id number])[address] [address] [place] [address] Lymphocytes (Bld) [#/Vol]1.9 10*3/uLNormal1.0-3.5PProtestant Hospital Comment on above:Performed By: #### CBCA, CMP, , 11213-1 ####[facility] ([id number])[address] [address] [place] [address] Lymphocytes/100 WBC (Bld)30.1 %NormalProDayton Children'S Hospital HospitalComment on above: Performed By: #### CBCA, CMP, , 58920-2 ####[facility] ([id number])[address] [address], [place] [address]CVL (RBC) [Entitic mass] 27.5 saBgvocm62-69FovKxiupb [place] HospitalComment on above:Performed By: #### CBCA, CMP, 22584-6, 22234-9 ####[facility] ([id number])[address], [address] [place] [address] 884[address]AFVT (RBC) [Mass/Vol]32.7 g/fLPoiuau58-92 [facility] HospitalComment on above:Performed By: #### CBCA, CMP, 83611-3, 17570-2 ####[facility] ([id number])[address], [address] [place] [address]KFS (RBC) [Entitic vol]84 sLFubchw76-722AauCcovxq [facility] HospitalComment on above:Performed By: #### CBCA, CMP, 58762-3, 17333-4 ####[facility] ([id number])[address], [address] [place] [address]Rygcaofjvhcmcy/100 WBC (Bld)1.1 %NormalProMedica Childers HospitalComment on above:Performed By: #### CBCA, CMP, 99933-2, 81722-7 ####[facility] ([id number])[address], [address] [place] [address]Jrvtrxqxk (Bld) [#/Vol]0.8 10*3/uLNormal0-0.9[facility] HospitalComment on above:Performed By: #### CBCA, CMP, 57052-5, 88051-6 ####[facility] ([id number])[address], [address] [place] [address] 66[address]Drixsptaw/100 WBC (Bld)12.9 %NormalProMedica Childers HospitalComment on above:Performed By: #### CBCA, CMP, 72668-8, 00986-4 ####[facility] ([id number])[address], [address] [place] [address] 97716QJHLFYKBB0.1 %NormalProMedica Childers HospitalComment on above:Performed By: #### CBCA, CMP, 97626-1, 97917-1 ####[facility] ([id number])[address], [address], [place] [address]Wjdnmolvmot (Bld) [#/Vol]3.3 10*3/uLNormal1.5-6.6ProOur Lady Of Mercy Hospitalca [facility]ers HospitalComment on above: Performed By: #### CBCA, CMP, 14257-4, 21038-2 ####[facility] ([id number])[address], [address], [place] [address]MMESBBEQC RBC2.2 /100 WBC High0.0-1.0ProOur Lady Of Mercy Hospitalca [facility]ers HospitalComment on above:Performed By: #### CBCA, CMP, 59134-2, 20281-8 ####[facility] ([id number])[address], [address], [place] [address]WKSCQODIW2+AbnormalNONEProMedica [facility] HospitalComment on above:Performed By: #### CBCA, CMP, 91166-0, 43656-1 ####[facility] ([id number])[address], [address] [place] [address] 137[address]Truppeid mean volume (Bld) [Entitic vol]8.0 fLNormal7-12[facility] HospitalComment on above:Performed By: #### CBCA, CMP, 95347-9, 95682-8 ####[facility] ([id number])[address], [address] [place] [address]Cqfmrqchw (Bld) [#/Vol]353 10*3/nGFvtfjd896-879IbpIdxlwb [facility] Comment on above:Performed By: #### CBCA, CMP, 56447-5, 15258-3 ####[facility] ([id number])[address], [address], [place] [address] POLYCHROMASIA1+AbnormalNONEProMedica Childers HospitalComment on above:Performed By: #### CBCA, CMP, 83365-6, 49343-9 ####[facility] ([id number])[address], [address] [place] [address]NEB COUNT3.04 X10E12/LLow 3.80-5.20[facility] HospitalComment on above:Performed By: #### CBCA, CMP, 43986-7, 94731-0 ####[facility] ([id number])[address], [address], [place] [address]EME NENHTTAKUA60.4 %NormalProSt. John Of God Hospital Comment on above:Performed By: #### CBCA, CMP, 59134-1, 88780-8 ####[facility] ([id number])[address], [address] [place] [address]DIK (Bld) [#/Vol]6.4 10*3/uLNormal4.0-11.0ProSt. John Of God HospitalComment on above: Performed By: #### CBCA, CMP, 04843-5, 64496-7 ####[facility] ([id number])[address] [address] [place] [address] 85307NVSNCBOSPVCOO METABOLIC PANELon 14-20-0467Xswbqbf [Mass/Vol]3.2 g/dLNormal3.2-5.3PProtestant HospitalComment on above:Performed By: #### CBCA, CMP, 98328-0, 78751-6 ####[facility] ([id number])[address], [address], [place] [address]JGA [Catalytic activity/Vol]103 U/LLwzlhp11-479FrjFhqykkCleveland Clinic [facility] Hospital Comment on above:Performed By: #### CBCA, CMP, 78619-7, 37974-4 ####[facility] ([id number])[address]TO[facility], [place] [address]HFF [Catalytic activity/Vol]20 U/LNormal0-31PProtestant HospitalComment on above:Performed By: #### CBCA, CMP, 54403-3, 26737-9 ####[facility] ([id number])[address], [address], [place] [address]Qccwo gap [Moles/Vol]8 mmol/LNormal5-15[facility] HospitalComment on above:Performed By: #### CARMEN CMP, , 79703-5 ####[facility] ([id number])[address], [address], [place] [address]RFD [Catalytic activity/Vol]22 U/LNormal0-41[facility] HospitalComment on above:Performed By: #### CARMEN CMP, , 75914-7 ####[facility] ([id number])[address], [address], [place] [address]Whjhwudyw [Mass/Vol]0.3 mg/dLNormal0.3-1.2[facility] HospitalComment on above:Performed By: #### CARMEN CMP, , 19903-2 ####[facility] ([id number])[address], [address], [place] [address]Bbvgcar [Mass/Vol]8.8 mg/dLNormal8.5-10.5 [facility] HospitalComment on above:Performed By: #### RUBEN MORALES, , 66018-8 ####[facility] ([id number])[address], [address], [place] [address]Lyqqjtko [Moles/Vol]104 mmol/WPdhsok42-914AriMcwjhy [facility] HospitalComment on above:Performed By: #### CARMEN, CMP, , 31308-8 ####[facility] ([id number])[address], [address], [place] [address]IM9 [Moles/Vol]27 mmol/HUabevc69-41GrjDwecav [facility] HospitalComment on above:Performed By: #### RUBEN MORALES, , 37771-3 ####[facility] ([id number])[address] [address], [place] [address]Unfsysjqmh [Mass/Vol]1.86 mg/dLHigh0.40-1.00[facility] HospitalComment on above: Result Comment: METHOD TRACEABLE TO IDMS STANDARDPerformed By: #### RUBEN MORALES, , 43347-8 ####[facility] ([id number])[address] [address], [place] [address]YNF/1.73 sq M.predicted among non-blacks MDRD (S/P/Bld) [Vol rate/Area]27 mL/min/{1.73_m2}Low>59[facility] HospitalComment on above:Result Comment: Reported eGFR is based on theCKD-EPI 2020 equation that doesnot use a race coefficient.Performed By: #### RUBEN MORALES, , 19777-9 ####[facility] ([id number])[address] [address]TO[facility], [place] [address]Okefftv [Mass/Vol]158 mg/zPDjbm49-94MitHqujjs [facility] HospitalComment on above:Performed By: #### RUBEN MORALES, , 61325-0 ####[facility] ([id number])[address] [address]TO[facility], [place] [address]Mkxusjlne [Moles/Vol]5.1 mmol/LHigh3.5-5.0[facility] HospitalComment on above: Performed By: #### RUBEN MORALES, , 52857-3 ####[facility] ([id number])[address] [address], [place] [address]Oyoaigl [Mass/Vol]6.6 g/dL Normal6.0-8.0[facility] HospitalComment on above:Performed By: #### RUBEN MORALES, , 20742-0 ####[facility] ([id number])[address], [address] [place] [address]Dcglfb [Moles/Vol]139 mmol/MAuosdn271-208 [facility] Childers HospitalComment on above:Performed By: #### RUBEN MORALES, , 02077-5 ####[facility] ([id number])[address], [address] [place] [address] 89143Immr nitrogen [Mass/Vol]24 mg/dLNormal5-27ProMedica Childers HospitalComment on above:Performed By: #### RUBEN MORALES, , 10046-8 ####[facility] ([id number])[address], [address] [place] [address] 31117Pxooquh Glucometer (BldC) [Mass/Vol]on 26-02-8218Lgrxxng [Mass/Vol]265 mg/kGIbkt82-98VwhPuczsk Chidlers HospitalGlucose [Mass/Vol]184 mg/iBFpux52-48 [facility] HospitalGlucose [Mass/Vol]200 mg/jBWids84-92CgyZtuvlt Childers HospitalGlucose [Mass/Vol]156 mg/vJKpsh99-41MitEjfpgg Childers HospitalGlucose [Mass/Vol]170 mg/nXSbzy45-37IdaIhgguj Childers HospitalMAGNESIUMon 02-23-2025 Magnesium [Mass/Vol]2.3 mg/dLNormal1.8-2.6Pro[facility]ica Childers HospitalComment on above:Performed By: #### RUBEN MORALES, , 79992-2 ####[facility] ([id number])[address], [address] [place] [address] 66103Fykehlpbepc peptide B [Mass/Vol]on 09-82-2637Lrygfuplgtb peptide B (Bld) [Mass/Vol]37 pg/mL Normal<100.0ProMedica Childers HospitalComment on above:Performed By: #### RUBEN MORALES, 90595-1, 25243-4 ####[facility] ([id number])[address], [place] [address]MG CHEST 1 VWon 29-51-6857YG CHEST 1 VWNormal [facility]Bar[facility] CenterBLOWATONNA CLINIC CULTUREon 27-89-7365Xukerbdi identified Aer cx Nom (Bld)SPECIMEN NOTES SUBOPTIMAL VOLUME OF BLOOD COLLECTED, RESULTS MAY BE AFFECTED. CULTURE RESULTS NO GROWTH 5 DAYSNormalProMedica Wheatfield HospitalComment on above:Performed By: #### 97345-2 ####[facility] ([id number])[address], [address] [place] [address]NFA AND AUTO DIFFon 56-47-5015VQRHEDZR BASOPHIL0.1 X10E9/L Normal0.0-0.2Pro[facility]ica Wheatfield HospitalComment on above:Performed By: #### CBCA, CMP, ####[facility] ([id number])[address], [address] [place] [address]20[address]Wznd form neutrophils/100 WBC (Bld)2.9 %NormalProMedica Wheatfield HospitalComment on above:Performed By: #### CBCA, CMP, 37164-9 ####[facility] ([id number])[address], [address] [place] [address] Basophils/100 WBC (Bld)1.9 %NormalProMedica Wheatfield HospitalComment on above: Performed By: #### CBCA, CMP, 49647-3 ####[facility] ([id number])[address], [address] [place] [address]Nanrqimkgjs (Bld) [#/Vol] 0.2 10*3/uLNormal0.0-0.4Pro[facility]ica Wheatfield HospitalComment on above:Performed By: #### CBCA, CMP, ####[facility] ([id number])[address] [address], [place] [address]Vwcphfbskxi/100 WBC (Bld)3.8 %Normal ProMTriHealth [facility] HospitalComment on above:Performed By: #### CBCA, CMP, ####[facility] ([id number])[address] [facility] [address], [place] [address]Pthlkonygjl distribution width (RBC) [Ratio]17.4 %High11.5-15.0ProDayton [facility]'S Hospital HospitalComment on above:Performed By: #### CBCA, CMP, ####[facility] ([id number])[address], [address], [place] [address] Hematocrit (Bld) [Volume fraction]26.5 %Heb27-79KuwIfnuxj [place] HospitalComment on above:Performed By: #### CBCA, CMP, ####[facility] ([id number])[address] [address] [place] [address]Almpyxkldl (Bld) [Mass/Vol] 8.7 g/dLLow11.7-15.5PCl[facility] HospitalComment on above:Performed By: #### CBCA, CMP, ####[facility] ([id number])[address] [address], [place] [address]PUOPQGHSXS, ATYPICAL1.0 %NormalProDayton Children'S Hospital HospitalComment on above:Performed By: #### CBCA, CMP, ####[facility] ([id number])[address] [address]TO[facility] [address] Lymphocytes (Bld) [#/Vol]1.3 10*3/uLNormal1.0-3.5PCl[facility] Hospital Hospital Comment on above:Performed By: #### CBCA, CMP, ####[facility] ([id number])[address], [address], [place] [address]Gciqcypxmsr/100 WBC (Bld)20.0 %NormalProMedica Childers HospitalComment on above:Performed By: #### CBCDanielle CMP, ####[facility] ([id number])[address], [address] [place] [address] 90872GND (RBC) [Entitic mass]27.6 seCcszzy18-92 [facility] HospitalComment on above:Performed By: #### CBCA, CMP, ####[facility] ([id number])[address], [address] [place] [address]NHHA (RBC) [Mass/Vol]32.9 g/rPEiwvlx50-79FdpRfzufu [facility] HospitalComment on above:Performed By: #### CBCDanielle, CMP, ####[facility] ([id number])[address], [address] [place] [address]509QKN (RBC) [Entitic vol]84 xMEdffch27-993BtvKvismf Childers HospitalComment on above:Performed By: #### CBCDanielle, CMP, ####[facility] ([id number])[address], [address] [place] [address]Xofxlqchvmeviv/100 WBC (Bld)1.0 %NormalProMedica Childers HospitalComment on above:Performed By: #### CBCA, CMP, ####[facility] ([id number])[address], [address] [place] [address] Monocytes (Bld) [#/Vol]0.5 10*3/uLNormal0-0.9[facility]ers HospitalComment on above:Performed By: #### CBCA, CMP, ####[facility] ([id number])[address], [address] [place] [address]Fraxtmtgg/100 WBC (Bld)8.6 %NormalProMedica Childers HospitalComment on above:Performed By: #### CBCA, CMP, ####[facility] ([id number])[address], [address] [place] [address]KPJMEHVLQ5.0 %NormalProMedica Childers HospitalComment on above:Performed By: #### CBCA, CMP, ####[facility] ([id number])[address], [address] [place] [address]Expcsmfqfsw (Bld) [#/Vol] 3.9 10*3/uLNormal1.5-6.6Pro[facility] Childers HospitalComment on above:Performed By: #### CBCA, CMP, ####[facility] ([id number])[address], [address] [place] [address]JDITDFZTL3+AbnormalNONEProMedica Childers HospitalComment on above:Performed By: #### CBCA, CMP, ####[facility] ([id number])[address], [address] [place] [address] Platelet mean volume (Bld) [Entitic vol]7.7 fLNormal7-12[facility] HospitalComment on above:Performed By: #### CBCA, CMP, ####[facility] ([id number])[address], [address] [place] [address] Platelets (Bld) [#/Vol]367 10*3/jCVsnbzx580-119WrgRpauad [facility] HospitalComment on above:Performed By: #### CBCA, CMP, ####[facility] ([id number])[address], [address] [place] [address]857OLIKTWBOTYSBR4+AbnormalNONE [facility] HospitalComment on above:Performed By: #### CBCA, CMP, ####[facility] ([id number])[address], [address], [place] [address]RAF COUNT3.16 X10E12/LLow3.80-5.20[facility] HospitalComment on above:Performed By: #### RUBEN MORALES, ####[facility] ([id number])[address], [address] [place] [address]LLG ZATOBJNJOT12.8 %Normal [facility] HospitalComment on above:Performed By: #### RUBEN MORALES, ####[facility] ([id number])[address], [address] [place] [address] 89491SIV (Bld) [#/Vol]6.1 10*3/uLNormal4.0-11.0Pro[facility] HospitalComment on above:Performed By: #### RUBEN MORALES, ####[facility] ([id number])[address], [address], [place] [address]LVNIZUDXAGSJI METABOLIC PANELon 89-43-0916Ndswfuu [Mass/Vol]3.4 g/dLNormal3.2-5.3ProMedTri[facility] HospitalComment on above:Performed By: #### RUBEN MORALES, ####[facility] ([id number])[address], [address]TO[facility], [place] [address]PVB [Catalytic activity/Vol]105 U/MErwwbv98-157GcfJbnjer [place] HospitalComment on above:Performed By: #### CARMEN CMP, ####[facility] ([id number])[address], [address]TO[facility], [place] [address]TPP [Catalytic activity/Vol]24 U/LNormal0-31ProMedTri[facility] HospitalComment on above:Performed By: #### CARMEN CMP, ####[facility] ([id number])[address], [address], [place] [address]Lbvtr gap [Moles/Vol]7 mmol/LNormal5-15 [facility] HospitalComment on above:Performed By: #### CARMEN CMP, ####[facility] ([id number])[address], [address], [place] [address]TIL [Catalytic activity/Vol]25 U/LNormal0-41[facility] Comment on above:Performed By: #### CARMEN CMP, ####[facility] ([id number])[address], [address], [place] [address]Ekpkovpga [Mass/Vol]0.3 mg/dLNormal0.3-1.2ProMedTri[facility] HospitalComment on above: Performed By: #### CARMEN CMP, ####[facility] ([id number])[address], [address], [place] [address]Ogwebwn [Mass/Vol]9.3 mg/dL Normal8.5-10.5ProMedTriHealth [facility] HospitalComment on above:Performed By: #### CARMEN CMP, ####[facility] ([id number])[address], [address], [place] [address]Ppqyopwl [Moles/Vol]101 mmol/KHptozw11-082TqvQqheyk [place] HospitalComment on above:Performed By: #### CARMEN, CMP, ####[facility] ([id number])[address], [address], [place] [address]GM7 [Moles/Vol]30 mmol/ZUehdnf15-64QzqDuguln [place] HospitalComment on above: Performed By: #### CARMEN, CMP, ####[facility] ([id number])[address], [address], [place] [address]Qykbsxeywz [Mass/Vol]1.72 mg/dLHigh0.40-1.00[facility] HospitalComment on above:Result Comment: METHOD TRACEABLE TO IDMS STANDARDPerformed By: #### RUBEN MORALES, ####[facility] ([id number])[address] [address], [place] [address]PLS/1.73 sq M.predicted among non-blacks MDRD (S/P/Bld) [Vol rate/Area]30 mL/min/{1.73_m2}Low>59[facility] HospitalComment on above:Result Comment: Reported eGFR is based on theCKD-EPI 2020 equation that doesnot use a race coefficient.Performed By: #### RUBEN MORALES, ####[facility] ([id number])[address] [address] [place] [address]Tqaaiqo [Mass/Vol]67 mg/tRTylfwc10-98PvfElxqsz [place] HospitalComment on above:Performed By: #### RUBEN MORALES, ####[facility] ([id number])[address] [address], [place] [address]Kguvjyyat [Moles/Vol]4.6 mmol/LNormal3.5-5.0[facility] HospitalComment on above:Performed By: #### RUBEN MORALES, ####[facility] ([id number])[address] [address]TO[facility] [address] Protein [Mass/Vol]7.0 g/dLNormal6.0-8.0[facility] HospitalComment on above:Performed By: #### RUBEN MORALES, ####[facility] ([id number])[address] [address], [place] [address]Bxumxr [Moles/Vol]138 mmol/RYfstdh451-846TwtUtecom [facility] HospitalComment on above:Performed By: #### RUBEN MORALES, [id number] ####[facility] ([id number])[address], [address] [place] [address]Sdfy nitrogen [Mass/Vol]19 mg/dLNormal5-27ProSt. John Of God HospitalComment on above:Performed By: #### RUBEN MORALES, ####[facility] ([id number])[address], [address] [place] [address] Glucose Glucometer (BldC) [Mass/Vol]on 85-39-9228Iwdfmam [Mass/Vol]171 mg/dLHigh 65-99Pro[facility] HospitalGlucose [Mass/Vol]209 mg/xOHlbw58-09LyvXabkma [place] HospitalGlucose [Mass/Vol]149 mg/cDWwsu83-66XzkSyfhpa [facility] Glucose [Mass/Vol]79 mg/nLYbbodn81-89MxdUqcvgk [place] HospitalMAGNESIUMon 73-61-3269Cpxqwuenh [Mass/Vol]2.5 mg/dLNormal1.8-2.6[facility] Hospital Comment on above:Performed By: #### RUBEN MORALES, ####[facility] ([id number])[address], [address] [address]DWWFV CULTUREon 48-71-8000Ncwfsyeq identified Aer cx Nom (Bld)SPECIMEN NOTES SUBOPTIMAL VOLUME OF BLOOD COLLECTED, RESULTS MAY BE AFFECTED. CULTURE RESULTS NO GROWTH 5 DAYSNormalProSt. John Of God HospitalComment on above:Performed By: #### [id number] ####[facility] ([id number])[address], [address] [address]PXR AND AUTO DIFFon 51-51-2895Orba form neutrophils/100 WBC (Bld)1.0 %NormalProDayton Children'S Hospital HospitalComment on above:Performed By: #### RUBEN, , CBCA ####[facility] ([id number])[address], [address]TO[facility], [place] [address]Ghrwkrygpmz (Bld) [#/Vol]0.2 10*3/uLNormal0.0-0.4 [facility] HospitalComment on above:Performed By: #### RUBEN, , CBCA ####[facility] ([id number])[address], [address], [place] [address]Uopsjyubzfm/100 WBC (Bld)3.0 %NormalProMedica [facility] HospitalComment on above:Performed By: #### RUBEN, , CBCA ####[facility] ([id number])[address], [address], [place] [address]Bygkpidiznx distribution width (RBC) [Ratio]16.8 %High11.5-15.0[facility] HospitalComment on above: Performed By: #### RUBEN, , CBCA ####[facility] ([id number])[address], [address], [place] [address]Eqjamzhvni (Bld) [Volume fraction]25.6 %Odr22-75CiwFsfxtj [place] HospitalComment on above:Performed By: #### RUBEN, , CBCA ####[facility] ([id number])[address] [address], [place] [address]Pjhscfqigd (Bld) [Mass/Vol]8.5 g/dLLow 11.7-15.5[facility] HospitalComment on above:Performed By: #### RUBEN, , CBCA ####[facility] ([id number])[address] [address]TO[facility], [place] [address]FYYFDYFEYPQ1+AbnormalNONEProMedica [facility] HospitalComment on above:Performed By: #### RUBEN, , CBCA ####[facility] ([id number])[address], [address], [place] [address]Gbdobfnjcbi (Bld) [#/Vol] 1.0 10*3/uLNormal1.0-3.5[facility] HospitalComment on above:Performed By: #### CMP, , CBCA ####[facility] ([id number])[address], [address], [place] [address]Bfkwrsmkzgt/100 WBC (Bld)15.0 %Normal [facility] HospitalComment on above:Performed By: #### CMP, , CBCA ####[facility] ([id number])[address], [address] [place] [address]KZD (RBC) [Entitic mass]27.4 gqKclgbu99-58TqxReuruf [facility] HospitalComment on above:Performed By: #### RUBEN, , CBCA ####[facility] ([id number])[address], [address], [place] [address]TVWC (RBC) [Mass/Vol]33.2 g/qCWmiipj05-26MppEuzbmr [facility] HospitalComment on above:Performed By: #### CMP, , CBCA ####[facility] ([id number])[address], [place] [address]BAF (RBC) [Entitic vol]83 eVSbgjcp11-042FxpRabtzj [facility] HospitalComment on above:Performed By: #### CMP, , CBCA ####[facility] ([id number])[address], [address], [place] [address] Metamyelocytes/100 WBC (Bld)2.0 %NormalProMedica Childers HospitalComment on above:Performed By: #### CMP, , CBCA ####[facility] ([id number])[address], [address], [place] [address]Qmucwxtlu (Bld) [#/Vol]0.7 10*3/uLNormal0-0.9[facility] HospitalComment on above:Performed By: #### CMP, , CBCA ####[facility] ([id number])[address], [address], [place] [address]Omniickyb/100 WBC (Bld)11.0 %NormalProOur Lady Of Mercy Hospitalca [facility]ers HospitalComment on above:Performed By: #### CMP, , CBCA ####[facility] ([id number])[address], [address], [place] [address] MYELOCYTE4.0 %NormalProOur Lady Of Mercy Hospitalca [facility]ers HospitalComment on above:Performed By: #### CMP, , CBCA ####[facility] ([id number])[address], [address] [place] [address], [place] [address]Hthhyqzvqzv (Bld) [#/Vol]4.4 10*3/uLNormal1.5-6.6 [facility] HospitalComment on above:Performed By: #### CMP, , CBCA ####[facility] ([id number])[address], [address] [place] [address], [place] [address]Tunaygcy mean volume (Bld) [Entitic vol]8.2 fLNormal7-12[facility] HospitalComment on above:Performed By: #### CMP, , CBCA ####[facility] ([id number])[address], [address] [place] [address], [place] [address] Platelets (Bld) [#/Vol]343 10*3/lILzvfla713-391LghCwlwnu [facility] HospitalComment on above:Performed By: #### CMP, , CBCA ####[facility] ([id number])[address], [address], [place] [address]YZPXEKADNZOWF0+AbnormalNONE [facility] HospitalComment on above:Performed By: #### RUBEN, , CBCA ####[facility] ([id number])[address], [address] [place] [address]SRA COUNT3.10 X10E12/LLow3.80-5.20ProOur Lady Of Mercy Hospitalca [place] HospitalComment on above:Performed By: #### RUBEN, , CBCA ####[facility] ([id number])[address], [address] [place] [address]ZKR TKSOCZIWQF07.0 %Normal [facility] HospitalComment on above:Performed By: #### RUBEN, , CBCA ####[facility] ([id number])[address], [address] [place] [address]YOU (Bld) [#/Vol]6.7 10*3/uLNormal4.0-11.0[facility] HospitalComment on above:Performed By: #### RUBEN, , CBCA ####[facility] ([id number])[address], [address] [place] [address]MAPMLDTSOJUZW METABOLIC PANELon 46-81-3513Rupcjxx [Mass/Vol]3.4 g/dLNormal3.2-5.3[facility] HospitalComment on above:Performed By: #### RUBEN, , CBCA ####[facility] ([id number])[address], [address] [place] [address]WKI [Catalytic activity/Vol]112 U/IMmqnhl62-642BenKuaneg [place] HospitalComment on above:Performed By: #### RUBEN, , CBCA ####[facility] ([id number])[address], [address], [place] [address]XIX [Catalytic activity/Vol]22 U/LNormal0-31[facility] HospitalComment on above:Performed By: #### RUBEN, , CBCA ####[facility] ([id number])[address], [address], [place] [address]Vonpe gap [Moles/Vol]10 mmol/LNormal5-15 [facility] HospitalComment on above:Performed By: #### RUBEN, , CBCA ####[facility] ([id number])[address], [address], [place] [address]DXM [Catalytic activity/Vol]26 U/LNormal0-41[facility] Hospital Comment on above:Performed By: #### RUBEN, , CBCA ####[facility] ([id number])[address], [address], [place] [address]Lvpokypih [Mass/Vol]0.3 mg/dLNormal0.3-1.2ProMedTri[facility] HospitalComment on above: Performed By: #### RUBEN, , CBCA ####[facility] ([id number])[address], [address], [place] [address]Zxguqdy [Mass/Vol]9.2 mg/dL Normal8.5-10.5ProMedandalusia health Childers HospitalComment on above:Performed By: #### RUBEN, , CBCA ####[facility] ([id number])[address], [address], [place] [address]Umyhloxm [Moles/Vol]101 mmol/FQzbcpe43-326PezUsxmgi [facility] HospitalComment on above:Performed By: #### RUBEN, , CBCA ####[facility] ([id number])[address], [address], [place] [address]IA6 [Moles/Vol]28 mmol/RTnmcqf54-63OdaFkatky [facility] HospitalComment on above: Performed By: #### RUBEN, , CBCA ####[facility] ([id number])[address] [address], [place] [address]Uyydvkagky [Mass/Vol]1.50 mg/dLHigh0.40-1.00[facility] HospitalComment on above:Result Comment: METHOD TRACEABLE TO IDMS STANDARDPerformed By: #### RUBEN, , CBCA ####[facility] ([id number])[address] [address], [place] [address]NGF/1.73 sq M.predicted among non-blacks MDRD (S/P/Bld) [Vol rate/Area]35 mL/min/{1.73_m2}Low>59[facility] HospitalComment on above:Result Comment: Reported eGFR is based on theCKD-EPI 2020 equation that doesnot use a race coefficient.Performed By: #### RUBEN, , CBCA ####[facility] ([id number])[address] [address], [place] [address]Oylxzxg [Mass/Vol]108 mg/aHXait97-97ChaMhptkp [place] HospitalComment on above:Performed By: #### RUBEN, , CBCA ####[facility] ([id number])[address] [address]Paqjnetlz [Moles/Vol]4.5 mmol/LNormal3.5-5.0[facility] HospitalComment on above:Performed By: #### RUBEN, , CBCA ####[facility] ([id number])[address] [place] [address] Protein [Mass/Vol]6.6 g/dLNormal6.0-8.0ProOur Lady Of Mercy Hospitalca [place] HospitalComment on above:Performed By: #### RUBEN, , CBCA ####[facility] ([id number])[address], [place] [address]Kaathj [Moles/Vol]139 mmol/WIwgtfe010-095SpvPnkvkq [facility] HospitalComment on above:Performed By: #### RUBEN, , CBCA ####[facility] ([id number])[address], [address], [place] [address]Ldvp nitrogen [Mass/Vol]15 mg/dLNormal5-27[facility] HospitalComment on above:Performed By: #### RUBEN, , CBCA ####[facility] ([id number])[address], [place] [address] Glucose Glucometer (BldC) [Mass/Vol]on 51-35-4502Ubskpcn [Mass/Vol]186 mg/dLHigh 65-99ProOur [facility] Hospitalca [place] HospitalGlucose [Mass/Vol]189 mg/vNRgcx53-48YufFdmkeg [facility] HospitalGlucose [Mass/Vol]165 mg/vTYuab11-36UdtZvxdmw [facility] Glucose [Mass/Vol]123 mg/uTDuvk63-51RwkQhdhhu [place] HospitalMAGNESIUMon 31-70-8633Iduvsnclt [Mass/Vol]2.6 mg/dLNormal1.8-2.6ProOur [facility] Hospitalca [facility] Comment on above:Performed By: #### [id number] ####[facility] ([id number])[address], [address] [place] [address]Nruliajqv [Mass/Vol]1.8 mg/dLNormal1.8-2.6[facility] HospitalComment on above:Performed By: #### RUBEN, , CBCA ####[facility] ([id number])[address], [address], [place] [address]AGD AND AUTO DIFFon [id number] form neutrophils/100 WBC (Bld)1.0 %NormalProMedica Wheatfield HospitalComment on above:Performed By: #### CBCDanielle CMP, , 2157-04 ####[facility] ([id number])[address], [address]TO[facility], [place] [address]Nfrjazuqcaa (Bld) [#/Vol] 0.3 10*3/uLNormal0.0-0.4ProDayton Children'S Hospital HospitalComment on above:Performed By: #### CBCA, CMP, , 2157-04 ####[facility] ([id number])[address], [address], [place] [address]Hekhgejfnez/100 WBC (Bld) 4.0 %NormalProDayton Children'S Hospital HospitalComment on above:Performed By: #### CBCDanielle CMP, , 2157-04 ####[facility] ([id number])[address], [address], [place] [address]Vgqjojlcxim distribution width (RBC) [Ratio]17.2 %High11.5-15.0ProSt. John Of God HospitalComment on above:Performed By: #### RUBEN MORALES, , 2157-04 ####[facility] ([id number])[address], [address]TO[facility], [place] [id number]+AbnormalNONEProMedica Wheatfield HospitalComment on above:Performed By: #### CBCA, CMP, , 2157-04 ####[facility] ([id number])[address], [address]TO[facility], [place] [address]Lytiblosfb (Bld) [Volume fraction]23.6 %Gbv50-17RwbNzkohd [place] [facility] Comment on above:Performed By: #### CBCA, CMP, , 2157-04 ####[facility] ([id number])[address], [place] [address] Hemoglobin (Bld) [Mass/Vol]7.9 g/dLLow11.7-15.5PClinton Memorial Hospital HospitalComment on above:Performed By: #### CBCA, CMP, , 2157-04 ####[facility] ([id number])[address], [address] [place] [id number]+ AbnormalNONEProMedTriHealth [facility] HospitalComment on above:Performed By: #### CBCA, CMP, , 2157-04 ####[facility] ([id number])[address], [address], [place] [address]Nglpramazaz (Bld) [#/Vol]1.8 10*3/uLNormal 1.0-3.5PClinton Memorial Hospital HospitalComment on above:Performed By: #### CBCA, CMP, , 2157-04 ####[facility] ([id number])[address], [address] [place] [address]Ntnikcqylry/100 WBC (Bld)23.2 %NormalProDayton Children'S Hospital HospitalComment on above:Performed By: #### CBCA, CMP, , 2157-04 ####[facility] ([id number])[address] [address], [address] [place] [address] 34768OFY (RBC) [Entitic mass]27.7 ybDevhum57-40MjnJzxeno [facility]field HospitalComment on above:Performed By: #### CBCA, CMP, , 2157-04 ####[facility] ([id number])[address], [address] [place] [address] 50436CJQT (RBC) [Mass/Vol]33.2 g/uNTvlftz65-96AiaAvwgdk [facility]ers HospitalComment on above: Performed By: #### CBCA, CMP, , 2157-04 ####[facility] ([id number])[address], [address], [place] [address]IVW (RBC) [Entitic vol]83 xEGsyawr28-881AbgAudzfw [facility] HospitalComment on above:Performed By: #### CBCA, CMP, , 2157-04 ####[facility] ([id number])[address], [address]TO[facility], [place] [address]Smtrdbedkhfbgp/100 WBC (Bld)1.0 %NormalProMedica Childers HospitalComment on above:Performed By: #### CBCA, CMP, , 2157-04 ####[facility] ([id number])[address], [address]TO[facility], [place] [address]Gbbsnufzq (Bld) [#/Vol]0.9 10*3/uLNormal0-0.9[facility] Comment on above:Performed By: #### CBCA, CMP, , 2157-04 ####[facility] ([id number])[address], [address], [place] [address] Monocytes/100 WBC (Bld)12.1 %NormalProMedica Childers HospitalComment on above: Performed By: #### CBCA, CMP, , 2157-04 ####[facility] ([id number])[address], [address], [place] [address]HPBJIQCJN2.0 %Normal [facility] Childers HospitalComment on above:Performed By: #### CBCA, CMP, , 2157-04 ####[facility] ([id number])[address], [address]TO[facility], [place] [address]Upuazxzaqci (Bld) [#/Vol]4.4 10*3/uLNormal1.5-6.6ProMedica Childers HospitalComment on above:Performed By: #### CBCA, CMP, , 2157-04 ####[facility] ([id number])[address], [address], [place] [address]Obhjdjim mean volume (Bld) [Entitic vol]8.4 fLNormal7-12[facility] HospitalComment on above:Performed By: #### CBCA, CMP, , 2157-04 ####[facility] ([id number])[address], [address], [place] [address]Scppbqgiq (Bld) [#/Vol]320 10*3/pSMzjcci839-135FhjMwvnjn [facility] Comment on above:Performed By: #### CBCDanielle, CMP, , 2157-04 ####[facility] ([id number])[address], [address] [place] [address] 003[address]DMW COUNT2.83 X10E12/LLow3.80-5.20ProOur Lady Of Mercy Hospitalca [facility] HospitalComment on above: Performed By: #### CBCA, CMP, , 2157-04 ####[facility] ([id number])[address], [address] [place] [address] 120[address]HDB TTXWSIUXCT62.7 %Normal [facility] HospitalComment on above:Performed By: #### CBCA, CMP, , 2157-04 ####[facility] ([id number])[address], [address] [place] [address] 12024BBJ (Bld) [#/Vol]7.8 10*3/uLNormal4.0-11.0ProOur Lady Of Mercy Hospitalca [facility] HospitalComment on above:Performed By: #### CBCA, CMP, , 2157-04 ####[facility] ([id number])[address], [address], [place] [address]XW [Catalytic activity/Vol]on 82-91-4821UXL95 U/LHqeqcr95-388NanFohthj [facility] HospitalComment on above:Performed By: #### CARMEN, CMP, , 2157-04 ####[facility] ([id number])[address], [address], [place] [address]SGUXGZMLITKNZ METABOLIC PANELon 85-92-2389Jluovjw [Mass/Vol]3.2 g/dLNormal 3.2-5.3Pro[facility] Childers HospitalComment on above:Performed By: #### CARMEN, CMP, , 2157-04 ####[facility] ([id number])[address], [address], [place] [address]YUI [Catalytic activity/Vol]106 U/HTbjfqj24-320 [facility]ers HospitalComment on above:Performed By: #### CARMEN, CMP, , 2157-04 ####[facility] ([id number])[address], [address], [place] [address]XRF [Catalytic activity/Vol]22 U/LNormal0-31[facility]ers HospitalComment on above:Performed By: #### CARMEN, CMP, , 2157-04 ####[facility] ([id number])[address], [address], [place] [address]Mxubj gap [Moles/Vol]9 mmol/LNormal5-15[facility]ers HospitalComment on above:Performed By: #### CARMEN, CMP, , 2157-04 ####[facility] ([id number])[address], [address], [place] [address]UUY [Catalytic activity/Vol]24 U/LNormal0-41[facility]ers HospitalComment on above:Performed By: #### CBCA, CMP, , 2157-04 ####[facility] ([id number])[address], [address], [place] [address]Acdbfpesl [Mass/Vol]0.3 mg/dLNormal0.3-1.2Pro[facility] Childers HospitalComment on above:Performed By: #### RUBEN MORALES, , 2157-04 ####[facility] ([id number])[address], [address]TO[facility], [place] [address]Dhrqskk [Mass/Vol]9.0 mg/dLNormal8.5-10.5 [facility] HospitalComment on above:Performed By: #### RUBEN MORALES, , 2157-04 ####[facility] ([id number])[address], [address], [place] [address]Raktrsun [Moles/Vol]101 mmol/YIplyuc05-356LztFtsbld [facility] HospitalComment on above:Performed By: #### RUBEN MORALES, , 2157-04 ####[facility] ([id number])[address] [address], [place] [address]DZ9 [Moles/Vol]29 mmol/WAsxklq58-66UhcAxhcsi [facility] HospitalComment on above:Performed By: #### RUBEN MORALES, , 2157-04 ####[facility] ([id number])[address] [address], [place] [address]Ciehchcyxl [Mass/Vol] 1.45 mg/dLHigh0.40-1.00[facility] Childers HospitalComment on above:Result Comment: METHOD TRACEABLE TO IDNM STANDARDPerformed By: #### RUBEN MORALES, , 2157-04 ####[facility] ([id number])[address] [address], [place] [address]SGF/1.73 sq M.predicted among non-blacks MDRD (S/P/Bld) [Vol rate/Area]37 mL/min/{1.73_m2}Low>59Pro[facility]ers HospitalComment on above:Result Comment: Reported eGFR is based on theCKD-EPI 2020 equation that doesnot use a race coefficient.Performed By: #### RUBEN MORALES, , 2157-04 ####[facility] ([id number])[address], [address], [place] [address]Dsxnwsi [Mass/Vol]110 mg/nZBesk39-76WnmBfjijt [facility] HospitalComment on above:Performed By: #### RUBEN MORALES, , 2157-04 ####[facility] ([id number])[address], [address], [place] [address]Rvkgwmdxe [Moles/Vol]4.6 mmol/LNormal3.5-5.0Pro[facility]ers HospitalComment on above:Performed By: #### RUBEN MORALES, , 2157-04 ####[facility] ([id number])[address], [address]TO[facility], [place] [address]Yvbjeym [Mass/Vol]6.4 g/dLNormal6.0-8.0 [facility]ers HospitalComment on above:Performed By: #### RUBEN MORALES, , 2157-04 ####[facility] ([id number])[address], [address], [place] [address]Ickzis [Moles/Vol]139 mmol/JYktrjl290-814MzcSmgeeo [facility] HospitalComment on above:Performed By: #### RUBEN MORALES, , 2157-04 ####[facility] ([id number])[address], [address], [place] [address]Fazb nitrogen [Mass/Vol]14 mg/dLNormal5-27[facility]ers HospitalComment on above:Performed By: #### RUBEN MORALES, , 2157-04 ####[facility] ([id number])[address], [address], [place] [address]TN CHEST WO CONT on 09-04-9658VK CHEST WO CONTNormalProDayton Children'S Hospital HospitalGlucose Glucometer (BldC) [Mass/Vol]on 52-67-7575Kfaqngg [Mass/Vol]253 mg/lUFboo97-79LfhCvrinf [facility] HospitalGlucose [Mass/Vol]145 mg/qMKqjs30-22ZklJuhyzp [facility] Glucose [Mass/Vol]237 mg/eDRakq55-25ObeNydeur [facility] HospitalGlucose [Mass/Vol] 143 mg/pRCgzt14-20IagWgemuz [facility] HospitalMAGNESIUMon 88-83-3265Wdgrqgbxy [Mass/Vol]1.9 mg/dLNormal1.8-2.6ProDayton [facility]'S Hospital HospitalComment on above: Performed By: #### RUBEN MORALES, 00466-0, 7-6 ####[facility] ([id number])[address], [address] [place] [address]JZUNN CULTUREon 02-19-2025 Bacteria identified Aer cx Nom (Bld)SPECIMEN NOTES SUBOPTIMAL VOLUME OF BLOOD COLLECTED, RESULTS MAY BE AFFECTED. CULTURE RESULTS STAPHYLOCOCCUS AUREUS METHICILLIN RESISTANT FOR SUSCEPTIBILITY, SEE PREVIOUS REPORT.NormalAkron Children's Hospital HospitalComment on above:Performed By: #### 64921-4 ####[facility] ([id number])[address], [address] [place] [address]Wgtzmmjj identified Aer cx Nom (Bld)SPECIMEN NOTES SUBOPTIMAL VOLUME OF BLOOD COLLECTED, RESULTS MAY BE AFFECTED. CULTURE RESULTS STAPHYLOCOCCUS AUREUS METHICILLIN RESISTANT FOR SUSCEPTIBILITY, SEE PREVIOUS REPORT.NormalAkron Children's Hospital HospitalComment on above:Performed By: #### 20122-9 ####[facility] ([id number])[address], [address] [place] [address]UJC AND AUTO DIFFon 73-26-2831Ndlxnytdmod (Bld) [#/Vol]0.1 10*3/uLNormal0.0-0.4ProSt. John Of God HospitalComment on above:Performed By: #### CBCA, CMP, 69722-3 ####[facility] ([id number])[address], [address], [place] [address] Eosinophils/100 WBC (Bld)1.0 %NormalProMedica Wheatfield HospitalComment on above: Performed By: #### CBCA, CMP, 62770-2 ####[facility] ([id number])[address], [address], [place] [address]Zwdnnawxyit distribution width (RBC) [Ratio]17.1 %High11.5-15.0[facility] HospitalComment on above: Performed By: #### CBCA, CMP, ####[facility] ([id number])[address], [address], [place] [address]Wrjeeltazb (Bld) [Volume fraction]24.1 %Ozb90-46VorTryidm [facility] HospitalComment on above:Performed By: #### CBCA, CMP, ####[facility] ([id number])[address], [address], [place] [address]Strduhmrov (Bld) [Mass/Vol]7.9 g/dLLow 11.7-15.5[facility] HospitalComment on above:Performed By: #### CBCA, CMP, ####[facility] ([id number])[address] [address] [place] [address]Bqgouesawss (Bld) [#/Vol]1.8 10*3/uLNormal1.0-3.5[facility] HospitalComment on above:Performed By: #### CBCA, CMP, ####[facility] ([id number])[address] [address], [place] [address] Lymphocytes/100 WBC (Bld)21.0 %NormalProMedica Wheatfield HospitalComment on above: Performed By: #### CBCA, CMP, ####[facility] ([id number])[address], [address], [place] [address]MYJ (RBC) [Entitic mass] 27.3 eeQpvvrh16-33FmzBbbosu [facility] HospitalComment on above:Performed By: #### CBCA, CMP, ####[facility] ([id number])[address], [address], [place] [address]PKKV (RBC) [Mass/Vol]32.7 g/hBAlkzun10-72OzjXztxub [facility] HospitalComment on above:Performed By: #### CBCA, CMP, ####[facility] ([id number])[address], [address] [place] [address]DSY (RBC) [Entitic vol]84 iESzzoox57-189UcnMomjdw [facility] HospitalComment on above: Performed By: #### CBCA, CMP, ####[facility] ([id number])[address], [address] [place] [address]Nuadcrjsu (Bld) [#/Vol]0.6 10*3/uLNormal0-0.9[facility] HospitalComment on above:Performed By: #### CBCA, CMP, ####[facility] ([id number])[address], [address] [place] [address]Ohnxkwmlw/100 WBC (Bld)7.0 %NormalProMedica Childers HospitalComment on above:Performed By: #### CBCA, CMP, ####[facility] ([id number])[address], [address] [place] [address] MYELOCYTE2.0 %NormalProMedica Childers HospitalComment on above:Performed By: #### CBCA, CMP, ####[facility] ([id number])[address], [address] [place] [address]Wxmtwjrnrol (Bld) [#/Vol]6.1 10*3/uLNormal1.5-6.6 [facility] HospitalComment on above:Performed By: #### CARMEN CMP, ####[facility] ([id number])[address], [address], [place] [address]TEFDNFQEQ3+AbnormalNONEProMedica Childers HospitalComment on above:Performed By: #### CARMEN CMP, ####[facility] ([id number])[address], [address], [place] [address]Pfmdtkcm mean volume (Bld) [Entitic vol]8.3 fLNormal7-12[facility] HospitalComment on above:Performed By: #### RUBEN MORALES, ####[facility] ([id number])[address], [address], [place] [address]Lfxnxfihl (Bld) [#/Vol]288 10*3/dONrsxrn156-886RxfWrbfwo [facility] HospitalComment on above:Performed By: #### CARMEN CMP, ####[facility] ([id number])[address], [address], [place] [address] POLYCHROMASIA1+AbnormalNONEProMedica Childers HospitalComment on above:Performed By: #### CARMEN CMP, ####[facility] ([id number])[address], [address] [place] [address]ZRG COUNT2.89 X10E12/LLow3.80-5.20[facility] HospitalComment on above:Performed By: #### CARMEN CMP, ####[facility] ([id number])[address], [address], [place] [address] GAZFNUUWMI07.0 %NormalProMedica Childers HospitalComment on above:Performed By: #### RUBEN MORALES, ####[facility] ([id number])[address], [address], [place] [address]ZLW (Bld) [#/Vol]8.8 10*3/uLNormal4.0-11.0 [facility] HospitalComment on above:Performed By: #### RUBEN MORALES, ####[facility] ([id number])[address], [address], [place] [address]CAZBHFKUKIPTH METABOLIC PANELon 46-70-2828Kbuxhqm [Mass/Vol]3.2 g/dLNormal 3.2-5.3[facility] HospitalComment on above:Performed By: #### RUBEN MORALES, ####[facility] ([id number])[address], [address], [place] [address]PWK [Catalytic activity/Vol]112 U/VTchjmz93-272CiaYnikoz [facility] HospitalComment on above:Performed By: #### RUBEN MORALES, ####[facility] ([id number])[address], [address], [place] [address]KQZ [Catalytic activity/Vol]23 U/LNormal0-31[facility] HospitalComment on above:Performed By: #### RUBEN MORALES, ####[facility] ([id number])[address], [address], [place] [address]Otdpj gap [Moles/Vol]8 mmol/LNormal5-15[facility] HospitalComment on above:Performed By: #### RUBEN MORALES, ####[facility] ([id number])[address], [address], [place] [address]IWG [Catalytic activity/Vol]20 U/LNormal0-41[facility] HospitalComment on above:Performed By: #### CARMEN CMP, ####[facility] ([id number])[address], [address], [place] [address] Bilirubin [Mass/Vol]0.3 mg/dLNormal0.3-1.2ProMedTri[facility] HospitalComment on above:Performed By: #### RUBEN MORALES, ####[facility] ([id number])[address], [address], [place] [address]Juiqcef [Mass/Vol]9.3 mg/dL Normal8.5-10.5ProMedTriHealth [facility] HospitalComment on above:Performed By: #### RUBEN MORALES, ####[facility] ([id number])[address], [address], [place] [address]Kqyzdkwq [Moles/Vol]103 mmol/VQcwvsz83-717SzfVwejic [facility] HospitalComment on above:Performed By: #### RUBEN MORALES, ####[facility] ([id number])[address], [address], [place] [address]VS1 [Moles/Vol]30 mmol/HLwcwsh89-38CwiEkrtxz [facility] HospitalComment on above: Performed By: #### RUBEN MORALES, ####[facility] ([id number])[address] [address], [place] [address]Wpopwyqxjg [Mass/Vol]1.30 mg/dLHigh0.40-1.00Pro[facility] HospitalComment on above:Result Comment: METHOD TRACEABLE TO IDMS STANDARDPerformed By: #### RUBEN MORALES, ####[facility] ([id number])[address], [place] [address]PSA/1.73 sq M.predicted among non-blacks MDRD (S/P/Bld) [Vol rate/Area]42 mL/min/{1.73_m2}Low>59[facility] HospitalComment on above:Result Comment: Reported eGFR is based on theCKD-EPI 2020 equation that doesnot use a race coefficient.Performed By: #### RUBEN MORALES, ####[facility] ([id number])[address], [address], [place] [address]Ukpkojb [Mass/Vol]95 mg/vLAsvacs19-80GgoHikzhh [facility] HospitalComment on above:Performed By: #### RUBEN MORALES, ####[facility] ([id number])[address], [address], [place] [address]Pqabntmqz [Moles/Vol]4.3 mmol/LNormal3.5-5.0[facility] HospitalComment on above:Performed By: #### RUBEN MORALES, ####[facility] ([id number])[address], [place] [address] Protein [Mass/Vol]6.2 g/dLNormal6.0-8.0[facility] HospitalComment on above:Performed By: #### RUBEN MORALES, ####[facility] ([id number])[address] [address], [place] [address]Lrbqxu [Moles/Vol]141 mmol/QXeitkw243-197LhhFzmyps [facility] HospitalComment on above:Performed By: #### RUBEN MORALES, ####[facility] ([id number])[address], [place] [address]Bqxa nitrogen [Mass/Vol]13 mg/dLNormal5-27[facility] HospitalComment on above:Performed By: #### RUBEN MORALES, ####[facility] ([id number])[address], [place] [address] Glucose Glucometer (BldC) [Mass/Vol]on 35-41-0296Jhwanyj [Mass/Vol]202 mg/dLHigh 65-99ProSt. John Of God HospitalGlucose [Mass/Vol]171 mg/oYMupj26-57DzzDtkzxdSt. John Of God HospitalGlucose [Mass/Vol]200 mg/rRHovv74-29CwmLusveqSt. John Of God Hospital Glucose [Mass/Vol]100 mg/fBUyqg05-65MplGmakvu [place] HospitalMAGNESIUMon 76-80-9321Tmcvquurh [Mass/Vol]2.1 mg/dLNormal1.8-2.6[facility] Comment on above:Performed By: #### CARMEN, CMP, 73054-0 ####[facility] ([id number])[address], [address] [place] [address]Qvqsxhrlwx peak [Mass/Vol]on 79-60-3648AIUNPRHTYL PEAK36.7 ug/xSKeuccp75.00-40.00Pro[facility] HospitalComment on above:Performed By: #### 4090-7 ####[facility] ([id number])[address], [address] [place] [address]Gvkebcqrik trough [Mass/Vol]on 34-99-1139FLHGAKDVIQ JSYWFM30.2 ug/mLHigh5.0-20.0ProSt. John Of God HospitalComment on above:Performed By: #### 4092-3 ####[facility] ([id number])[address], [address] [place] [address]CEP AND AUTO DIFFon 32-59-7361ZSBBDTECUOV6+AbnormalNONEProMedica [facility] HospitalComment on above:Performed By: #### CBCA, 04784-6, CMP ####[facility] ([id number])[address], [address] [place] [address]Xaeqjodlvbr (Bld) [#/Vol] 0.2 10*3/uLNormal0.0-0.4[facility] HospitalComment on above:Performed By: #### CARMEN, , CMP ####[facility] ([id number])[address], [place] [address]Xxsootmkdcz/100 WBC (Bld)3.0 %Normal [facility] HospitalComment on above:Performed By: #### CARMEN, , CMP ####[facility] ([id number])[address], [place] [address]Dmnsfjcrndw distribution width (RBC) [Ratio]16.7 %High11.5-15.0[facility] HospitalComment on above:Performed By: #### CARMEN, , CMP ####[facility] ([id number])[address], [place] [address] Hematocrit (Bld) [Volume fraction]22.6 %Rgy79-14BudMwmvbf Childers HospitalComment on above:Performed By: #### CARMEN, , CMP ####[facility] ([id number])[address], [address], [place] [address]Hbrnclpqya (Bld) [Mass/Vol] 7.4 g/dLLow11.7-15.5Pro[facility] Childers HospitalComment on above:Performed By: #### CARMEN, , CMP ####[facility] ([id number])[address], [address], [place] [address]Zfevzsmvapl (Bld) [#/Vol]1.8 10*3/uLNormal1.0-3.5 [facility] Childers HospitalComment on above:Performed By: #### CARMEN, , CMP ####[facility] ([id number])[address], [address], [place] [address]Ynreudabxyn/100 WBC (Bld)24.2 %NormalProMedica Childers HospitalComment on above:Performed By: #### CARMEN, , CMP ####[facility] ([id number])[address], [address] [place] [address]ZKR (RBC) [Entitic mass] 27.6 roZbufxv81-69DuyPbwkdr Childers HospitalComment on above:Performed By: #### CARMEN, , CMP ####[facility] ([id number])[address], [address] [place] [address]GPQM (RBC) [Mass/Vol]33.0 g/pKWitsdl13-10IebRwvsrk Childers HospitalComment on above:Performed By: #### CARMEN, , CMP ####[facility] ([id number])[address], [address], [place] [address]JPU (RBC) [Entitic vol]84 tPIxuvtl85-253YcdIrnzbs Childers HospitalComment on above: Performed By: #### CARMEN, , CMP ####[facility] ([id number])[address], [address] [place] [address]Chbqwrwzs (Bld) [#/Vol]0.9 10*3/uLNormal0-0.9ProMedica Childers HospitalComment on above:Performed By: #### CARMEN, , CMP ####[facility] ([id number])[address], [address], [place] [address]Tpntjazjd/100 WBC (Bld)12.1 %NormalProMedica Childers HospitalComment on above:Performed By: #### CARMEN, , CMP ####[facility] ([id number])[address], [address] [place] [address] MYELOCYTE1.0 %NormalProMedica Childers HospitalComment on above:Performed By: #### CARMEN, , CMP ####[facility] ([id number])[address], [address], [place] [address]Hlojgajgwhk (Bld) [#/Vol]4.5 10*3/uLNormal1.5-6.6 [facility] Childers HospitalComment on above:Performed By: #### CARMEN , CMP ####[facility] ([id number])[address], [address], [place] [address]KGJVQXUXW RBC1.0 /100 WBCNormal0.0-1.0ProMedica Childers HospitalComment on above:Performed By: #### CARMEN , CMP ####[facility] ([id number])[address], [address], [place] [address]Qzyfcysh mean volume (Bld) [Entitic vol]8.5 fLNormal7-12ProMedica Childers HospitalComment on above:Performed By: #### CARMEN , CMP ####[facility] ([id number])[address], [address], [place] [address]Zbmpgiwrt (Bld) [#/Vol]262 10*3/uLNormal 150-450[facility]ica Childers HospitalComment on above:Performed By: #### CARMEN , CMP ####[facility] ([id number])[address], [address], [place] [address]SEK COUNT2.70 X10E12/LLow3.80-5.20[facility] Comment on above:Performed By: #### CARMEN , CMP ####[facility] ([id number])[address], [address], [place] [address]OTN NEUTROPHIL 59.7 %NormalProMedica Childers HospitalComment on above:Performed By: #### CARMEN , CMP ####[facility] ([id number])[address], [address], [place] [address]WAS (Bld) [#/Vol]7.5 10*3/uLNormal4.0-11.0[facility]ers HospitalComment on above:Performed By: #### CARMEN , CMP ####[facility] ([id number])[address], [address], [place] [address] COMPREHENSIVE METABOLIC PANELon 00-03-7810Ibctveg [Mass/Vol]3.1 g/dLLow3.2-5.3 [facility] HospitalComment on above:Performed By: #### CARMEN , CMP ####[facility] ([id number])[address], [address]TO[facility], [place] [address]CVW [Catalytic activity/Vol]93 U/XDttvzd14-626LbgQydfvy [facility] Comment on above:Performed By: #### CARMEN , CMP ####[facility] ([id number])[address], [address], [place] [address]AET [Catalytic activity/Vol]22 U/LNormal0-31[facility] HospitalComment on above:Performed By: #### CARMEN , CMP ####[facility] ([id number])[address], [address], [place] [address]Oimku gap [Moles/Vol]7 mmol/LNormal5-15 [facility] HospitalComment on above:Performed By: #### CARMEN, , CMP ####[facility] ([id number])[address], [address]TO[facility], [place] [address]SWI [Catalytic activity/Vol]18 U/LNormal0-41[facility] Comment on above:Performed By: #### CARMEN , CMP ####[facility] ([id number])[address], [address]TO[facility], [place] [address]Qvgvlgrdv [Mass/Vol]0.3 mg/dLNormal0.3-1.2P[facility] HospitalComment on above: Performed By: #### CARMEN, 11317-3, CMP ####[facility] ([id number])[address], [address]TO[facility], [place] [address]Hflllkv [Mass/Vol]9.0 mg/dL Normal8.5-10.5[facility] HospitalComment on above:Performed By: #### CARMEN, , CMP ####[facility] ([id number])[address], [address]TO[facility], [place] [address]Pybmlmaq [Moles/Vol]105 mmol/NOovavg96-806TngGntkbg [place] HospitalComment on above:Performed By: #### CARMEN, , CMP ####[facility] ([id number])[address], [address]TO[facility], [place] [address]IZ2 [Moles/Vol]29 mmol/JGvmgig21-87ArbYntsyf [place] HospitalComment on above: Performed By: #### CARMEN, , CMP ####[facility] ([id number])[address], [address]TO[facility], [place] [address]Ppeqmmotom [Mass/Vol]1.30 mg/dLHigh0.40-1.00[facility] HospitalComment on above:Result Comment: METHOD TRACEABLE TO IDMS STANDARDPerformed By: #### CARMEN, , CMP ####[facility] ([id number])[address], [address]TO[facility], [place] [address]VXB/1.73 sq M.predicted among non-blacks MDRD (S/P/Bld) [Vol rate/Area]42 mL/min/{1.73_m2}Low>59[facility] HospitalComment on above:Result Comment: Reported eGFR is based on theCKD-EPI 2020 equation that doesnot use a race coefficient.Performed By: #### CARMEN , CMP ####[facility] ([id number])[address], [address], [place] [address]Ubjoqno [Mass/Vol]100 mg/hNMcqu64-16VqyDtbila [facility] HospitalComment on above:Performed By: #### CARMEN , CMP ####[facility] ([id number])[address] [address], [place] [address]Fyvxchswx [Moles/Vol]4.1 mmol/LNormal3.5-5.0ProOur Lady Of Mercy Hospitalca [place] HospitalComment on above:Performed By: #### CARMEN , CMP ####[facility] ([id number])[address], [address], [place] [address] Protein [Mass/Vol]6.0 g/dLNormal6.0-8.0ProOur [facility] Of Mercy Hospitalca [place] HospitalComment on above:Performed By: #### CARMEN , CMP ####[facility] ([id number])[address] [address], [place] [address]Ijkkxq [Moles/Vol]141 mmol/ZGvfpfw656-056ZewVjtpmq [facility] HospitalComment on above:Performed By: ###Adeline MORALES , CMP ####[facility] ([id number])[address] [address]TO[facility], [place] [address]Zsxj nitrogen [Mass/Vol]16 mg/dLNormal5-27ProOur [facility] Mer[facility] Hospitalca [place] HospitalComment on above:Performed By: #### CARMEN , CMP ####[facility] ([id number])[address] [address]TO[facility] [address] Glucose Glucometer (BldC) [Mass/Vol]on 51-15-2295Wxpecnz [Mass/Vol]143 mg/dLHigh 65-99Pro[facility] HospitalGlucose [Mass/Vol]222 mg/tJUbyn57-78DvvNdikyn [place] HospitalGlucose [Mass/Vol]247 mg/vSIyxl91-05JdyNkaqor [facility] Glucose [Mass/Vol]110 mg/oYQjev08-90IfpCxvdca [place] HospitalMAGNESIUMon 15-35-7219Vcdggfmln [Mass/Vol]2.2 mg/dLNormal1.8-2.6[facility] Comment on above:Performed By: #### 48896-4 ####[facility] ([id number])[address] [facility], [address] [place] [address]Alxduomib [Mass/Vol]1.9 mg/dLNormal1.8-2.6ProSt. John Of God HospitalComment on above:Performed By: #### CBCA, , CMP ####[facility] ([id number])[address] [facility], [address] [place] [address]TLMVV CULTUREon 63-66-2231Ndemucnb identified Aer cx Nom (Bld)SPECIMEN NOTES ONLY AEROBIC BOTTLE RECEIVED, SUBOPTIMAL VOLUME OF BLOOD COLLECTED, RESULTS MAY BE AFFECTED SUBOPTIMAL VOLUME OF BLOOD COLLECTED, RESULTS MAY BE AFFECTED. CULTURE RESULTS NO GROWTH 5 DAYSNormalProSt. John Of God HospitalComment on above:Performed By: #### 83568-9 ####[facility] ([id number])Critical access hospital [address] [address]Akdpteqi identified Aer cx Nom (Bld)ResistantProSt. John Of God HospitalComment on above:Performed By: #### 28437-1 ####[facility] ([id number])Critical access hospital [address], [address] [place] [address]FUS AND AUTO DIFFon 45-99-3965KDHAVKLW BASOPHIL0.0 X10E9/LNormal0.0-0.2[facility] HospitalComment on above:Performed By: #### CBCA, CMP, , ####[facility] ([id number])[address], [address]TO[facility], [place] [address]ECGTWSOO NEUTROPHIL4.7 X10E9/LNormal1.5-6.6Pro[facility] Hospital Comment on above:Performed By: #### CBCDanielle CMP, , ####[facility] ([id number])[address], [address]TO[facility] [address] Basophils/100 WBC (Bld)0.5 %NormalProOur Lady Of Mercy Hospitalca [place] HospitalComment on above: Performed By: #### CBCDanielle, CMP, , ####[facility] ([id number])[address], [address], [place] [address]Cvzzljarnlw (Bld) [#/Vol] 0.3 10*3/uLNormal0.0-0.4Pro[facility] HospitalComment on above:Performed By: #### CBCDanielle, CMP, , ####[facility] ([id number])[address] [address], [place] [address]Lmnylrvrrav/100 WBC (Bld) 4.4 %NormalProOur Lady Of Mercy Hospitalca [place] HospitalComment on above:Performed By: #### CBCDanielle CMP, , ####[facility] ([id number])[address] [address]TO[facility] [address]Dhhncwwmzss distribution width (RBC) [Ratio] 16.8 %High11.5-15.0ProOur Lady Of Mercy Hospitalca [place] HospitalComment on above:Performed By: #### CBCA, CMP, , ####[facility] ([id number])[address], [address]TO[facility], [place] [address]Znngneuxio (Bld) [Volume fraction]23.6 %Low 35-47[facility] HospitalComment on above:Performed By: #### CBCA, CMP, , ####[facility] ([id number])[address], [address], [place] [address]Qmyjjamoym (Bld) [Mass/Vol]7.8 g/dLLow11.7-15.5 [facility] HospitalComment on above:Performed By: #### CBCA, CMP, , ####[facility] ([id number])[address], [address], [place] [address]Zdtgeqxcyrs (Bld) [#/Vol]1.5 10*3/uLNormal1.0-3.5[facility] HospitalComment on above:Performed By: #### CBCA, CMP, , ####[facility] ([id number])[address], [address], [place] [address]Bxjixsmvxii/100 WBC (Bld)19.4 %NormalProMedica [facility]field HospitalComment on above:Performed By: #### CBCA, CMP, , ####[facility] ([id number])[address] [address], [place] [address]FUN (RBC) [Entitic mass]27.8 qmZyemho52-01XolQkdzem [facility] HospitalComment on above: Performed By: #### CBCA, CMP, , ####[facility] ([id number])[address], [address], [place] [address]XGAW (RBC) [Mass/Vol]32.9 g/kRIeduyc95-56UwhPesnde [facility] HospitalComment on above:Performed By: #### CBCA, CMP, , ####[facility] ([id number])[address], [address]TO[facility], [place] [address]QTL (RBC) [Entitic vol]84 uMVisama03-156 [facility] HospitalComment on above:Performed By: #### CBCDanielle, CMP, , ####[facility] ([id number])[address], [address], [place] [address]Wmbglpzhu (Bld) [#/Vol]1.1 10*3/uLHigh0-0.9[facility] HospitalComment on above:Performed By: #### CBCDanielle, CMP, , ####[facility] ([id number])[address], [address], [place] [address]Tnmlznkjo/100 WBC (Bld)14.7 %NormalProMedica Childers HospitalComment on above:Performed By: #### CBCDanielle, CMP, , ####[facility] ([id number])[address], [address], [place] [address]Ekxiejhbwqv/100 WBC (Bld)61.0 %NormalProMedica Childers HospitalComment on above:Performed By: #### CBCDanielle, CMP, , ####[facility] ([id number])[address], [address], [place] [address]Fpzerjmn mean volume (Bld) [Entitic vol]8.4 fLNormal7-12[facility] HospitalComment on above:Performed By: #### CBCA, CMP, , ####[facility] ([id number])[address], [address], [place] [address]Uvbkegleu (Bld) [#/Vol]243 10*3/mALyifom187-614LbeTycclu [facility] HospitalComment on above:Performed By: #### CBCA, CMP, , ####[facility] ([id number])[address], [address]TO[facility], [place] [address]MVD COUNT2.80 X10E12/LLow3.80-5.20[facility] HospitalComment on above:Performed By: #### RUBEN MORALES, , ####[facility] ([id number])[address], [address]TO[facility], [place] [address]UBK (Bld) [#/Vol]7.8 10*3/uLNormal4.0-11.0[facility] HospitalComment on above:Performed By: #### RUEBN MORALES, , ####[facility] ([id number])[address], [address]TO[facility], [place] [address]GVGCWJYNGWAQH METABOLIC PANELon 95-31-5110Zkioaby [Mass/Vol]3.2 g/dLNormal3.2-5.3[facility] HospitalComment on above:Performed By: #### RUBEN MORALES, , ####[facility] ([id number])[address], [address], [place] [address]URV [Catalytic activity/Vol]98 U/LQdstif77-527YulXecmdj [facility] Comment on above:Performed By: #### RUBEN MORALES, , ####[facility] ([id number])[address], [address], [place] [address]JVH [Catalytic activity/Vol]33 U/LHigh0-31[facility]Med[facility] HospitalComment on above: Performed By: #### RUBEN MORALES, , ####[facility] ([id number])[address], [address], [place] [address]Sylcd gap [Moles/Vol]7 mmol/LNormal5-15ProOur [facility] Mer[facility] Hospitalca [facility] HospitalComment on above:Performed By: #### RUBEN MORALES, ####[facility] ([id number])[address], [address], [place] [address]UOK [Catalytic activity/Vol]32 U/LNormal0-41 [facility] HospitalComment on above:Performed By: #### RUBEN MORALES, , ####[facility] ([id number])[address], [address], [place] [address]Mrxvlaumy [Mass/Vol]0.2 mg/dLLow0.3-1.2[facility] HospitalComment on above:Performed By: #### RUBEN MORALES, ####[facility] ([id number])[address], [address], [place] [address]Hpndnha [Mass/Vol]9.1 mg/dLNormal8.5-10.5[facility]MedTri[facility] HospitalComment on above:Performed By: #### RUBEN MORALES, ####[facility] ([id number])[address], [address], [place] [address]Swvawfpe [Moles/Vol]104 mmol/NQihgmc46-411ImpRczobm [place] HospitalComment on above: Performed By: #### RUBEN MORALES, ####[facility] ([id number])[address], [address], [place] [address]HE1 [Moles/Vol]27 mmol/L Tespcw40-46TvlOivamu [facility] HospitalComment on above:Performed By: #### RUBEN MORALES, ####[facility] ([id number])[address], [place] [address]Cwlhqvmisb [Mass/Vol]1.16 mg/dLHigh0.40-1.00 [facility] HospitalComment on above:Result Comment: METHOD TRACEABLE TO IDMS STANDARDPerformed By: #### RUBEN MORALES, ####[facility] ([id number])[address] [address]TO[facility], [place] [address]JFZ/1.73 sq M.predicted among non-blacks MDRD (S/P/Bld) [Vol rate/Area]48 mL/min/{1.73_m2} Low>59[facility] HospitalComment on above:Result Comment: Reported eGFR is based on theCKD-EPI 2020 equation that doesnot use a race coefficient.Performed By: #### RUBEN MORALES, ####[facility] ([id number])[address] [address], [place] [address]Xotpnzi [Mass/Vol]159 mg/dL Nqiq96-64OltBimjah [facility] HospitalComment on above:Performed By: #### RUBEN MORALES, ####[facility] ([id number])[address] [address], [place] [address]Rybnkpuxw [Moles/Vol]4.3 mmol/LNormal3.5-5.0[facility] HospitalComment on above:Performed By: #### RUBEN MORALES, ####[facility] ([id number])[address] [address]TO[facility], [place] [address]Tgnveik [Mass/Vol]6.2 g/dLNormal6.0-8.0[facility] HospitalComment on above:Performed By: #### RUBEN MORALES, ####[facility] ([id number])[address] [address], [place] [address]Fwqiua [Moles/Vol]138 mmol/RUwzozm520-923EveMdeiww [facility] HospitalComment on above: Performed By: #### RUBEN MORALES, , 25942-0 ####[facility] ([id number])[address], [address] [place] [address]Elbn nitrogen [Mass/Vol]23 mg/dLNormal5-27[facility] HospitalComment on above:Performed By: #### RUBEN MORALES, , ####[facility] ([id number])[address], [address] [place] [address]Bpxcikc Glucometer (BldC) [Mass/Vol]on 07-22-1980Iawyxsi [Mass/Vol]237 mg/fOTnzw20-90LtmNjrsyj [facility] HospitalGlucose [Mass/Vol]162 mg/dOSpof53-51TgdBbsycy [facility] HospitalGlucose [Mass/Vol]174 mg/dL Dtyx04-67AkhAyezwn [facility] HospitalGlucose [Mass/Vol]149 mg/yBGent78-92BnqXvmroc [facility] HospitalMAGNESIUMon 47-53-6004Kzsgskxer [Mass/Vol]2.2 mg/dLNormal1.8-2.6 [facility] HospitalComment on above:Performed By: #### 25938-6 ####[facility] ([id number])[address], [address] [place] [address] Magnesium [Mass/Vol]1.7 mg/dLLow1.8-2.6[facility] HospitalComment on above:Performed By: #### RUBEN MORALES, , 50373-8 ####[facility] ([id number])[address], [address] [place] [address]Gyyywmmaif [Mass/Vol]on 00-82-4481GDWZZJGPKO95.4 ug/mLNormal5.0-40.0[facility] HospitalComment on above:Result Comment: Peak 30-40 ug/mLTrough 5-20 ug/ml Performed By: #### RUBEN MORALES, , 45652-9 ####[facility] ([id number])[address]TO[facility], [place] [address]UCO AND AUTO DIFFon 57-42-8446CQCNKOCM BASOPHIL0.0 X10E9/LNormal0.0-0.2[facility] HospitalComment on above:Performed By: #### CBCDanielle CMP, ####[facility] ([id number])[address], [address], [place] [address]XDTDBIJC NEUTROPHIL3.3 X10E9/LNormal1.5-6.6[facility] HospitalComment on above:Performed By: #### CARMEN CMP, ####[facility] ([id number])[address], [address], [place] [address] Basophils/100 WBC (Bld)0.7 %NormalProMedica Childers HospitalComment on above: Performed By: #### CBCDanielle CMP, 26143-4 ####[facility] ([id number])[address], [address], [place] [address]Mszbpvrawcj (Bld) [#/Vol] 0.2 10*3/uLNormal0.0-0.4[facility] HospitalComment on above:Performed By: #### CBCA, CMP, ####[facility] ([id number])[address], [address]TO[facility] [address]Qnctpcmzedg/100 WBC (Bld)4.0 %Normal [facility] HospitalComment on above:Performed By: #### CBCA CMP, ####[facility] ([id number])[address], [address], [place] [address]Suyxedlqwnv distribution width (RBC) [Ratio]16.9 %High11.5-15.0[facility] HospitalComment on above:Performed By: #### CBCA, CMP, ####[facility] ([id number])[address], [place] [address] Hematocrit (Bld) [Volume fraction]21.0 %Ebu96-43QtpJcfeuv [facility] HospitalComment on above:Performed By: #### CBCA, CMP, ####[facility] ([id number])[address], [address], [place] [address]Ttgajmqjzs (Bld) [Mass/Vol] 7.0 g/dLLow11.7-15.5[facility] HospitalComment on above:Performed By: #### CBCA, CMP, ####[facility] ([id number])[address], [place] [address]Ohxfzwcgbvv (Bld) [#/Vol]1.6 10*3/uLNormal1.0-3.5 [facility] HospitalComment on above:Performed By: #### CBCA, CMP, ####[facility] ([id number])[address], [address], [place] [address]Pwuqltrfasb/100 WBC (Bld)27.0 %NormalProMedica Childers HospitalComment on above:Performed By: #### CBCA, CMP, ####[facility] ([id number])[address] [address], [place] [address]QGH (RBC) [Entitic mass] 27.8 mzWtneyf58-77WvfOpvvih [facility] HospitalComment on above:Performed By: #### CBCA, CMP, ####[facility] ([id number])[address], [place] [address]UWPL (RBC) [Mass/Vol]33.2 g/sFJhrgdj16-25IubHjzaqc [facility] HospitalComment on above:Performed By: #### CBCA, CMP, ####[facility] ([id number])[address], [address], [place] [address]BCJ (RBC) [Entitic vol]84 uJDkluxr63-500UsuUfduoj [facility] HospitalComment on above: Performed By: #### CBCA, CMP, ####[facility] ([id number])[address], [address] [place] [address]Utbhiyfij (Bld) [#/Vol]0.8 10*3/uLNormal0-0.9[facility] HospitalComment on above:Performed By: #### CBCA, CMP, ####[facility] ([id number])[address], [address] [place] [address]Bonjryfhj/100 WBC (Bld)13.9 %NormalProMedica Childers HospitalComment on above:Performed By: #### CBCA, CMP, ####[facility] ([id number])[address], [address] [place] [address] Neutrophils/100 WBC (Bld)54.4 %NormalProMedica Childers HospitalComment on above: Performed By: #### CBCA, CMP, ####[facility] ([id number])[address], [address] [place] [address] 33282Punlurft mean volume (Bld) [Entitic vol]8.1 fLNormal7-12ProMedica Cihlders HospitalComment on above:Performed By: #### CBCA, CMP, ####[facility] ([id number])[address], [address], [place] [address]Iwqmibgei (Bld) [#/Vol]189 10*3/uLNormal 150-450ProDayton Children'S Hospital HospitalComment on above:Performed By: #### RUBEN MORALES, ####[facility] ([id number])[address], [address] [place] [address] 39405OXH COUNT2.50 X10E12/LLow3.80-5.20[facility] Comment on above:Performed By: #### RUBEN MORALES, ####[facility] ([id number])[address], [address] [place] [address] 48164TYH (Bld) [#/Vol]6.0 10*3/uLNormal4.0-11.0ProDayton Children'S Hospital HospitalComment on above: Performed By: #### RUBEN MORALES, ####[facility] ([id number])[address], [address], [place] [address]EDRMVQLLQBHEO METABOLIC PANELon 10-63-5011Wsstsxc [Mass/Vol]2.8 g/dLLow3.2-5.3PProtestant Hospital Comment on above:Performed By: #### RUBEN MORALES, ####[facility] ([id number])[address], [address]TO[facility], [place] [address]UDY [Catalytic activity/Vol]90 U/BBnzrqz22-055BxhUakaep [place] HospitalComment on above: Performed By: #### CBCDanielle, CMP, ####[facility] ([id number])[address], [address]TO[facility], [place] [address]LUQ [Catalytic activity/Vol]21 U/LNormal0-31PCl[facility] HospitalComment on above:Performed By: #### CARMEN CMP, ####[facility] ([id number])[address], [address], [place] [address]Nqiiw gap [Moles/Vol]5 mmol/LNormal5-15 [facility] Childers HospitalComment on above:Performed By: #### RUBEN MORALES, ####[facility] ([id number])[address], [address], [place] [address]WXI [Catalytic activity/Vol]24 U/LNormal0-41[facility] Comment on above:Performed By: #### RUBEN MORALES, ####[facility] ([id number])[address], [address], [place] [address]Jbedkosje [Mass/Vol]0.3 mg/dLNormal0.3-1.2[facility] HospitalComment on above: Performed By: #### RUBEN MORALES, ####[facility] ([id number])[address], [address], [place] [address]Tjdljoc [Mass/Vol]8.4 mg/dL Low8.5-10.5Pro[facility]ica [facility] HospitalComment on above:Performed By: #### RUBEN MORALES, ####[facility] ([id number])[address], [address], [place] [address]Dadkznkd [Moles/Vol]107 mmol/GFldiyi93-494DjpOklalk Childers HospitalComment on above:Performed By: #### RUBEN MORALES, ####[facility] ([id number])[address], [address], [place] [address]XW3 [Moles/Vol]28 mmol/PZcxrxg87-36DqbYscuap Childers HospitalComment on above: Performed By: #### RUBEN MORALES, ####[facility] ([id number])[address], [address], [place] [address]Tfoccdtflc [Mass/Vol]1.23 mg/dLHigh0.40-1.00ProMedica Childers HospitalComment on above:Result Comment: METHOD TRACEABLE TO IDMS STANDARDPerformed By: #### RUBEN MORALES, ####[facility] ([id number])[address], [address], [place] [address]EME/1.73 sq M.predicted among non-blacks MDRD (S/P/Bld) [Vol rate/Area]45 mL/min/{1.73_m2}Low>59ProMedica Childers HospitalComment on above:Result Comment: Reported eGFR is based on theCKD-EPI 2020 equation that doesnot use a race coefficient.Performed By: #### RUBEN MORALES, ####[facility] ([id number])[address] [address], [place] [address]Xjultjl [Mass/Vol]129 mg/lLRgzo47-97HhcGkuczu Childers HospitalComment on above:Performed By: #### RUBEN MORALES, ####[facility] ([id number])[address] [address], [place] [address]Zhgtdougp [Moles/Vol]4.4 mmol/LNormal3.5-5.0ProMedica Childers HospitalComment on above:Performed By: #### RUBEN MORALES, ####[facility] ([id number])[address] [address]TO[facility] [address] Protein [Mass/Vol]5.6 g/dLLow6.0-8.0ProMedica Childers HospitalComment on above: Performed By: #### RUBEN MORALES, ####[facility] ([id number])[address] [address]TO[facility], [place] [address]Rikpvt [Moles/Vol]140 mmol/WNvyfjf042-688KbyAgtftp Childers HospitalComment on above:Performed By: #### RUBEN MORALES, ####[facility] ([id number])[address], [address] [place] [address]Sbxv nitrogen [Mass/Vol]23 mg/dLNormal5-27ProDayton Children'S Hospital HospitalComment on above:Performed By: #### [facility], 57263-7 ####[facility] ([id number])[address] [facility], [address] [place] [address] Glucose Glucometer (BldC) [Mass/Vol]on 32-80-1188Ocwnfyk [Mass/Vol]291 mg/dLHigh 65-99ProSt. John Of God HospitalGlucose [Mass/Vol]238 mg/vEHdfk37-02YmqYchkhl [place] HospitalGlucose [Mass/Vol]146 mg/oPUiph45-52GmoScudttSt. John Of God Hospital MAGNESIUMon 13-65-2970Fzryaqkol [Mass/Vol]1.8 mg/dLNormal1.8-2.6ProDayton Children'S Hospital HospitalComment on above:Performed By: #### [facility], 17998-1 ####[facility] ([id number])[address], [address] [place] [address] Vancomycin [Mass/Vol]on 66-18-3458QQKETVSZHK50.8 ug/mLNormal5.0-40.0ProSt. John Of God HospitalComment on above:Result Comment: Peak 30-40 ug/mLTrough 5-20 ug/ml Performed By: #### 84789-6 ####[facility] ([id number])[address], [address] [address]XJ SHUNT SERIESon 97-13-2720WZ SHUNT SERIESNormalProSt. John Of God Hospital CBC AND AUTO DIFFon 64-20-2279HZTKZQMI BASOPHIL0.0 X10E9/LNormal0.0-0.2[facility] HospitalComment on above:Performed By: #### CARMEN , CMP ####[facility] ([id number])[address], [address]TO[facility], [place] [address]YVIFXVEJ NEUTROPHIL6.2 X10E9/LNormal1.5-6.6ProOur Lady Of Mercy Hospitalca [facility] Comment on above:Performed By: #### CARMEN , CMP ####[facility] ([id number])[address], [address], [place] [address]Xpjrtdqkl/100 WBC (Bld)0.5 %NormalProOur Lady Of Mercy Hospitalca [facility] HospitalComment on above:Performed By: #### CARMEN , CMP ####[facility] ([id number])[address], [address], [place] [address]Odjwtsetxnn (Bld) [#/Vol]0.2 10*3/uLNormal0.0-0.4 [facility] HospitalComment on above:Performed By: #### CARMEN , CMP ####[facility] ([id number])[address], [address]TO[facility], [place] [address]Gsoecxbcmgb/100 WBC (Bld)2.3 %NormalProOur Lady Of Mercy Hospitalca [place] HospitalComment on above:Performed By: #### CARMEN , CMP ####[facility] ([id number])[address], [address], [place] [address]Swdmrlgmyxy distribution width (RBC) [Ratio]16.8 %High11.5-15.0ProOur Lady Of Mercy Hospitalca Childers HospitalComment on above: Performed By: #### CARMEN, , CMP ####[facility] ([id number])[address], [address], [place] [address]Tiwbwvdawu (Bld) [Volume fraction]23.1 %Rqp43-17WxuAcszva Childers HospitalComment on above:Performed By: #### CARMEN, , CMP ####[facility] ([id number])[address], [address], [place] [address]Lhlnqulziq (Bld) [Mass/Vol]7.5 g/dLLow 11.7-15.5PClinton Memorial Hospital HospitalComment on above:Performed By: #### CARMEN, , CMP ####[facility] ([id number])[address], [address], [place] [address]Zxmwpevwecz (Bld) [#/Vol]1.1 10*3/uLNormal1.0-3.5PClinton Memorial Hospital HospitalComment on above:Performed By: #### CARMEN, , CMP ####[facility] ([id number])[address], [address] [place] [address] Lymphocytes/100 WBC (Bld)12.9 %NormalProDayton Children'S Hospital HospitalComment on above: Performed By: #### CARMEN, , CMP ####[facility] ([id number])[address], [address] [place] [address]QFH (RBC) [Entitic mass] 27.6 cbMwsbxl05-64CynPosewy [place] HospitalComment on above:Performed By: #### CARMEN, , CMP ####[facility] ([id number])[address], [address], [place] [address]MTKP (RBC) [Mass/Vol]32.5 g/tNGqrqje90-68XuzCocits [place] HospitalComment on above:Performed By: #### CARMEN, , CMP ####[facility] ([id number])[address], [address], [place] [address]FZV (RBC) [Entitic vol]85 hJGslgci63-079HahZxcapa Childers HospitalComment on above: Performed By: #### CARMEN, , CMP ####[facility] ([id number])[address], [address], [place] [address]Mqapwywll (Bld) [#/Vol]1.1 10*3/uLHigh0-0.9ProMedica Childers HospitalComment on above:Performed By: #### CARMEN, , CMP ####[facility] ([id number])[address], [address], [place] [address]Abccmbshu/100 WBC (Bld)13.0 %NormalProMedica Childers HospitalComment on above:Performed By: #### CARMEN, , CMP ####[facility] ([id number])[address], [address], [place] [address] Neutrophils/100 WBC (Bld)71.3 %NormalProMedica Childers HospitalComment on above: Performed By: #### CARMEN, , CMP ####[facility] ([id number])[address], [address] [place] [address]Rjxceyrg mean volume (Bld) [Entitic vol]7.9 fLNormal7-12Pro[facility] HospitalComment on above:Performed By: #### CARMEN, , CMP ####[facility] ([id number])[address], [address], [place] [address]Sgpxzunyh (Bld) [#/Vol]202 10*3/uLNormal 150-450ProMedica Childers HospitalComment on above:Performed By: #### CARMEN, , CMP ####[facility] ([id number])[address], [address] [place] [address]LGO COUNT2.72 X10E12/LLow3.80-5.20[facility] Comment on above:Performed By: #### CARMEN, , CMP ####[facility] ([id number])[address], [address]TO[facility] [place] [address]DOF (Bld) [#/Vol]8.8 10*3/uLNormal4.0-11.0Pro[facility] Childers HospitalComment on above: Performed By: #### CARMEN , CMP ####[facility] ([id number])[address], [address]TO[facility], [place] [address]EIQNGBHJFXYCI METABOLIC PANELon 44-04-2431Ugmjans [Mass/Vol]3.0 g/dLLow3.2-5.3PClinton Memorial Hospital Hospital Comment on above:Performed By: #### CARMEN, , CMP ####[facility] ([id number])[address], [address]TO[facility], [place] [address]MWY [Catalytic activity/Vol]94 U/BMqzfyc13-686TibBlfaep Childers HospitalComment on above: Performed By: #### CARMEN , CMP ####[facility] ([id number])[address], [address]TO[facility], [place] [address]HDB [Catalytic activity/Vol]31 U/LNormal0-31[facility] HospitalComment on above:Performed By: #### CARMEN , CMP ####[facility] ([id number])[address], [address], [place] [address]Fiuag gap [Moles/Vol]8 mmol/LNormal5-15 [facility] HospitalComment on above:Performed By: #### CARMEN, , CMP ####[facility] ([id number])[address], [address]TO[facility], [place] [address]UNY [Catalytic activity/Vol]42 U/LHigh0-41Pro[facility] HospitalComment on above:Performed By: #### CARMEN , CMP ####[facility] ([id number])[address], [address]TO[facility], [place] [address]Tpxkqvruu [Mass/Vol]0.3 mg/dLNormal0.3-1.2PClinton Memorial Hospital HospitalComment on above:Performed By: #### CARMEN, , CMP ####[facility] ([id number])[address], [address]TO[facility], [place] [address]Xsxvaas [Mass/Vol]8.6 mg/dLNormal8.5-10.5PClinton Memorial Hospital HospitalComment on above:Performed By: #### CARMEN, , CMP ####[facility] ([id number])[address], [address]TO[facility] [address] Chloride [Moles/Vol]102 mmol/BPldwyh22-834QhgGwvkrz [place] HospitalComment on above:Performed By: #### CARMEN, , CMP ####[facility] ([id number])[address], [address]TO[facility] [address]EU8 [Moles/Vol]27 mmol/L Tgzpkj07-86HcoTmnogd [place] HospitalComment on above:Performed By: #### CARMEN, , CMP ####[facility] ([id number])[address] [address], [place] [address]Ibzdahmarl [Mass/Vol]1.44 mg/dLHigh0.40-1.00ProDayton [facility]'S Hospital HospitalComment on above:Result Comment: METHOD TRACEABLE TO IDMS STANDARD Performed By: #### CARMEN, , CMP ####[facility] ([id number])[address], [address]TO[facility], [place] [address]VTL/1.73 sq M.predicted among non-blacks MDRD (S/P/Bld) [Vol rate/Area]37 mL/min/{1.73_m2}Low>59 [facility]ers HospitalComment on above:Result Comment: Reported eGFR is based on theCKD-EPI 2020 equation that doesnot use a race coefficient.Performed By: #### CARMEN , CMP ####[facility] ([id number])[address], [address], [place] [address]Qqzjuuc [Mass/Vol]132 mg/dIGquf29-51 [facility] HospitalComment on above:Performed By: #### CARMEN , CMP ####[facility] ([id number])[address], [address]TO[facility], [place] [address]Vuegwekiy [Moles/Vol]4.5 mmol/LNormal3.5-5.0[facility] Comment on above:Performed By: #### CARMEN , CMP ####[facility] ([id number])[address], [address], [place] [address]Ixqjcca [Mass/Vol]6.1 g/dLNormal6.0-8.0ProSt. John Of God HospitalComment on above: Performed By: #### CARMEN , CMP ####[facility] ([id number])[address], [address], [place] [address]Cxsrps [Moles/Vol]137 mmol/EWsfshs686-954MqnQhkilb [place] HospitalComment on above:Performed By: ###Adeline MORALES , CMP ####[facility] ([id number])[address], [address], [place] [address]Nbzg nitrogen [Mass/Vol]27 mg/dLNormal5-27ProSt. John Of God HospitalComment on above:Performed By: #### CARMEN , CMP ####[facility] ([id number])[address], [address], [place] [address] Glucose Glucometer (BldC) [Mass/Vol]on 12-88-7635Lzuzuil [Mass/Vol]244 mg/dLHigh 65-99ProSt. John Of God HospitalGlucose [Mass/Vol]127 mg/gQSrsl67-24NzkIjmsfl [place] HospitalMAGNESIUMon 45-20-3657Xhkyftbwe [Mass/Vol]1.9 mg/dLNormal1.8-2.6 [facility] HospitalComment on above:Performed By: #### CBCA, 89404-6, CMP ####[facility] ([id number])[address], [address] [place] [address]Qcnpapqrdb [Mass/Vol]on 94-11-7425LHEJIGIRWI0.8 ug/mLNormal5.0-40.0 [facility] HospitalComment on above:Result Comment: Peak 30-40 ug/mLTrough 5-20 ug/ml Performed By: #### 45460-5 ####[facility] ([id number])[address], [address] [place] [address]CZKXS CULTUREon 12-83-9080Piwlqgnu identified Aer cx Nom (Bld)SPECIMEN NOTES SUBOPTIMAL VOLUME OF BLOOD COLLECTED, RESULTS MAY BE AFFECTED. CULTURE RESULTS STAPHYLOCOCCUS AUREUS METHICILLIN RESISTANT FOR SUSCEPTIBILITY, SEE PREVIOUS REPORT.Madison HealthComment on above:Performed By: #### 53120-5 ####[facility] ([id number])[address], [address] [place] [address]Ztsfzmvw identified Aer cx Nom (Bld)SPECIMEN NOTES SUBOPTIMAL VOLUME OF BLOOD COLLECTED, RESULTS MAY BE AFFECTED. CULTURE RESULTS STAPHYLOCOCCUS AUREUS METHICILLIN RESISTANT FOR SUSCEPTIBILITY, SEE PREVIOUS REPORT.Madison HealthComment on above:Performed By: #### 76697-0 ####[facility] ([id number])[address], [address] [place] [address]ZKT AND AUTO DIFFon 33-54-5295ZESYDYNB BASOPHIL0.0 X10E9/LNormal0.0-0.2PRapides Regional Medical Centerica [facility] Comment on above:Performed By: #### CBCA, CMP, 53255-6, ####[facility] ([id number])[address] [place] [address]QFKCEVNN NEUTROPHIL8.4 X10E9/LHigh1.5-6.6ProWhite Rock Medical CenterComment on above:Performed By: #### CBCA, CMP, 36804-6, ####[facility] ([id number])[address] [place] [address], [place] [address] Basophils/100 WBC (Bld)0.2 %NormalProWhite Rock Medical CenterComment on above: Performed By: #### CBCA, CMP, 25708-4, ####[facility] ([id number])[address] [place] [address]Agbqjxgxyuo (Bld) [#/Vol]0.0 10*3/uLNormal0.0-0.4ProWhite Rock Medical CenterComment on above: Performed By: #### CBCA, CMP, 86056-8, ####[facility] ([id number])[address] [place] [address]Obnogbiozey/100 WBC (Bld)0.3 %NormalProWhite Rock Medical CenterComment on above:Performed By: #### CBCA, CMP, 44251-5, ####[facility] ([id number])[address] [place] [address]Hixbysbhrxy distribution width (RBC) [Ratio]16.8 %High11.5-15.0ProWhite Rock Medical CenterComment on above: Performed By: #### CBCA, CMP, 74418-1, ####[facility] ([id number])[address] [place] [address]Ubqguaiftz (Bld) [Volume fraction]22.6 %Nxi85-44TusTlzqyfMercy Health Allen HospitalComment on above: Performed By: #### CBCA, CMP, 38034-7, ####[facility] ([id number])[address] [place] [address]Heydjaoxhe (Bld) [Mass/Vol]7.4 g/dLLow11.7-15.5PTriHealth Bethesda Butler HospitalComment on above: Performed By: #### CBCDanielle, CMP, 51488-9, ####[facility] ([id number])[address] [place] [address]19[address]Mlqqpqndvqp (Bld) [#/Vol]1.3 10*3/uLNormal1.0-3.5PTriHealth Bethesda Butler HospitalComment on above: Performed By: #### CBCDanielle, CMP, 21371-3, ####[facility] ([id number])[address] [place] [address]Hgjlnsaslaa/100 WBC (Bld)12.2 %NormalProWhite Rock Medical CenterComment on above:Performed By: #### CBCA, CMP, 81570-5, ####[facility] ([id number])[address] [place] [address]QFC (RBC) [Entitic mass]27.9 pg Bnvpup01-29IegCcbhobMercy Health Allen HospitalComment on above:Performed By: #### CBCA, CMP, 10980-5, ####[facility] ([id number])[address] [place] [address]AARR (RBC) [Mass/Vol]33.0 g/bKMuxoxb51-32 [facility] HospitalComment on above:Performed By: #### CBCA, CMP, 36773- 0, ####[facility] ([id number])[address] [place] [address]PMO (RBC) [Entitic vol]84 wINpuywp74-026NorGekwbx [facility] HospitalComment on above:Performed By: #### CBCA, CMP, 54162-5, ####[facility] ([id number])[address] [place] [address]26[address]Skqmceeup (Bld) [#/Vol]0.9 10*3/uLNormal0-0.9ProWhite Rock Medical CenterCompromedica charles and [facility] on above:Performed By: #### CBCA, CMP, 92294-4, ####[facility] ([id number])[address] [place] [address]Jecufvtwj/100 WBC (Bld)8.1 %NormalMercy Health Allen HospitalComment on above:Performed By: #### CBCA, CMP, 72443-3, ####[facility] ([id number])[address] [place] [address]Vmjbtncgfie/100 WBC (Bld)79.2 %NormalMercy Health Allen HospitalComment on above:Performed By: #### CBCA, CMP, 98319-0, ####[facility] ([id number])[address] [place] [address]Avinyvob mean volume (Bld) [Entitic vol]7.7 fLNormal7-12 [facility] HospitalComment on above:Performed By: #### CBCA, CMP, 44168- 0, ####[facility] ([id number])[address] [place] [address]Drrmzwpdv (Bld) [#/Vol]208 10*3/yJRujqxv871-886 [facility] Surgical CenterComment on above:Performed By: #### CARMEN, CMP, 21037- 0, ####[facility] ([id number])[address] [place] [address]70[address]DLO COUNT2.67 X10E12/LLow3.80-5.20ProWhite Rock Medical CenterComment on above:Performed By: #### CARMEN CMP, 94089-9, ####[facility] ([id number])[address] [place] [address]28[address]KET (Bld) [#/Vol]10.5 10*3/uLNormal4.0-11.0ProWhite Rock Medical CenterComment on above:Performed By: #### RUBEN MORALES, 31730-1, ####[facility] ([id number])[address] [place] [address]ZIEHKXAJKLYJH METABOLIC PANELon 93-32-5476Ibspsbp [Mass/Vol]2.8 g/dLLow3.2-5.3PTriHealth Bethesda Butler HospitalComment on above:Performed By: #### RUBEN MORALES, 81266-4, ####[facility] ([id number])[address] [place] [address]BWT [Catalytic activity/Vol]88 U/RYufkrv87-789ByuFduzdrWhite Rock Medical CenterComment on above: Performed By: #### CARMEN CMP, 13977-1, ####[facility] ([id number])[address] [place] [address]JRG [Catalytic activity/Vol]21 U/LNormal0-31ProMedAlameda HospitalComment on above: Performed By: #### CARMEN CMP, 99308-0, ####[facility] ([id number])[address] [place] [address], [place] [address]Tdegk gap [Moles/Vol]9 mmol/LNormal5-15ProWhite Rock Medical CenterComment on above: Performed By: #### RUBEN MORALES, 99035-2, ####[facility] ([id number])[address] [place] [address], [place] [address]AZA [Catalytic activity/Vol]27 U/LNormal0-41ProWhite Rock Medical CenterComment on above: Performed By: #### RUBEN MORALES, 03621-7, ####[facility] ([id number])[address] [place] [address], [place] [address]Gjkuecvjs [Mass/Vol]0.3 mg/dLNormal0.3-1.2ProMedAlameda HospitalComment on above: Performed By: #### RUBEN MORALES, 89523-7, ####[facility] ([id number])[address] [place] [address], [place] [address]Uoqmbri [Mass/Vol]8.5 mg/dLNormal8.5-10.5PTriHealth Bethesda Butler HospitalComment on above: Performed By: #### RUBEN MORALES, 70518-0, ####[facility] ([id number])[address] [place] [address], [place] [address]Glnpvnfa [Moles/Vol]99 mmol/ZNunetr39-288PslRcxkksWhite Rock Medical CenterComment on above: Performed By: #### RUBEN MORALES, 30444-8, ####[facility] ([id number])[address] [place] [address], [place] [address]VH3 [Moles/Vol]26 mmol/CIjiixy05-03QgkWyokxzTriHealth Bethesda Butler HospitalComment on above:Performed By: #### RUBEN MORALES, 86989-4, 10106-3 ####[facility] ([id number])[address] [place] [address]Mhpbfxsbkh [Mass/Vol]1.96 mg/dLHigh 0.40-1.00ProWhite Rock Medical CenterComment on above:Result Comment: METHOD TRACEABLE TO IDMS STANDARDPerformed By: #### RUBEN MORALES, 69764-0, ####[facility] ([id number])[address] [place] [address]ZTF/1.73 sq M.predicted among non-blacks MDRD (S/P/Bld) [Vol rate/Area]26 mL/min/{1.73_m2}Low>59ProWhite Rock Medical CenterComment on above:Result Comment: Reported eGFR is based on theCKD-EPI 2020 equation that doesnot use a race coefficient.Performed By: #### RUBEN MORALES, 01580-2, ####[facility] ([id number])[address] [place] [address]Fjxkwvn [Mass/Vol]187 mg/nXGwgp46-13ZrbDmogziWhite Rock Medical CenterComment on above:Performed By: #### RUBEN MORALES, 52275-7, 55635-3 ####[facility] ([id number])[address] [place] [address]Wbkpatfku [Moles/Vol]4.4 mmol/LNormal3.5-5.0ProWhite Rock Medical CenterComment on above:Performed By: #### RUBEN MORALES, 63960-9, ####[facility] ([id number])[address] [place] [address] 46[address]Zihscih [Mass/Vol]6.1 g/dLNormal6.0-8.0ProWhite Rock Medical CenterComment on above:Performed By: #### RUBEN MORALES, 48952-2, 32659-6 ####[facility] ([id number])[address] [place] [address] 17228Hgmove [Moles/Vol]134 mmol/VUxhjtx292-806TxmDyojjtMercy Health Allen HospitalComment on above:Performed By: #### RUBEN MORALES, 22557-9, 40125-9 ####[facility] ([id number])[address] [place] [address] 647[address]Zkfg nitrogen [Mass/Vol]38 mg/dLHigh5-27ProWhite Rock Medical CenterComment on above:Performed By: #### RUBEN MORALES, 08526-2, ####[facility] ([id number])[address] [place] [address] 70[address]WQ CHEST WO CONTon 91-33-5486PD CHEST WO CONTNormal [facility] Surgical CenterGlucose Glucometer (BldC) [Mass/Vol]on 02-14-2025 Glucose [Mass/Vol]161 mg/mQIucu37-80CozZnfibpMercy Health Allen HospitalGlucose [Mass/Vol] 278 mg/cZZafi33-12PmdAndbufMercy Health Allen HospitalLactate (P obed) [Moles/Vol]on 68-70-1103JBHOOEJ W/REFLEX1.8 mmol/LNormal0.4-2.0[facility] Comment on above:Result Comment: Result did not trigger repeat Lactate,re-order if needed.Performed By: #### 82581-0 ####[facility] ([id number])[address] [place] [address] 20192XGSJNGWTHdl 51-74-9857Cfpwcpjrh [Mass/Vol]2.0 mg/dLNormal1.8-2.6[facility] Comment on above:Performed By: #### RUBEN MORALES, 59339-4, 91291-7 ####[facility] ([id number])[address] [place] [address] 93535Hlzjjioti Ionized ISE (Bld) [Moles/Vol]on 82-64-5819Frsodzioo [Moles/Vol] 0.53 mmol/LNormal0.45-0.74[facility] HospitalComp[facility] on above:Result Comment: NEW REFERENCE RANGEPerformed By: #### 14023-9 ####[facility] ([id number])[address] [facility], [address] [place] [address] 08743Zcdqutezaxcvm [place] [Mass/Vol]on 35-08-5259ELWGUPAJJZOZN01.12 ng/mLHigh<0.05[facility] HospitalComp[facility] on above:Result Comment: NOTE<0.50 ng/mL - Low risk of severe sepsis and/or septic shock.<2.00 ng/mL -Recommend retesting within 6-24 hours.>2.00 ng/mL - High risk of sepsis and/or septic shock.Performed By: #### CBCA, CMP, 22911-8, 74292-8 ####[facility] ([id number])[address] [place], [place] [address]RE CHEST 1 VWon 80-47-4568UJ CHEST 1 VW NormalMercy Health Allen HospitalBLOOD CULTUREon 75-68-2828Vauswnpw identified Aer cx Nom (Bld)CULTURE RESULTS STAPHYLOCOCCUS AUREUS METHICILLIN RESISTANT FOR SUSCEPTIBILITY, SEE PREVIOUS REPORT.Madison HealthComment on above:Performed By: #### 00504-5 ####[facility] ([id number])[address], [address] [place] [address] 79914Ddyswxdl identified Aer cx Nom (Bld)CULTURE RESULTS STAPHYLOCOCCUS AUREUS METHICILLIN RESISTANT FOR SUSCEPTIBILITY, SEE PREVIOUS REPORT.Madison HealthComment on above:Performed By: #### 50007-6 ####[facility] ([id number])[address], [address] [place] [address] 87798FFF AND AUTO DIFFon 71-16-9649BXTNVIOO BASOPHIL0.0 X10E9/LNormal0.0-0.2[facility] Comment on above:Performed By: #### CHRISTINE, 6-4, 81553-6, 8, 2132-07 ####[facility] ([id number])[address], [address] [place] [address] 79398#### CARMEN, 04867-2, CMP ####[facility] ([id number])[address] [place] [address] 68522MOFNNCND RCKRRLCZZI52.1 X10E9/L High1.5-6.6ProWhite Rock Medical CenterComment on above:Performed By: #### CHRISITNE, 6-4, 22179-1, 2284-06, 2132-07 ####[facility] ([id number])0 [facility] [address] [place] [address] 47973#### CARMEN, 40767-3, CMP ####[facility] ([id number])[address] [place] [address] 47984Tlkfeagns/100 WBC (Bld)0.2 %NormalProWhite Rock Medical CenterComment on above:Performed By: #### CHRISTINE, 6-4, 82980-6, 2284-06, 2132-07 ####[facility] ([id number])0 [facility] [address] [place] [address] 06497#### CARMEN, 96361-2, CMP ####[facility] ([id number])[address] [place] [address] 55209Zhqymtkspwc (Bld) [#/Vol]0.0 10*3/uLNormal 0.0-0.4ProWhite Rock Medical CenterComment on above:Performed By: #### CHRISTINE, 6- 4, 19098-4, 8, 2132-07 ####[facility] ([id number])[address] [facility], [address] [place] [address] 51515#### CARMEN, 04822-5, CMP ####[facility] ([id number])[address] [place] [address] 57600 Eosinophils/100 WBC (Bld)0.0 %NormalProWhite Rock Medical CenterComment on above: Performed By: #### CHRISTINE, 2276-4, 04469-3, 2283-8, 2132-07 ####[facility] ([id number])0 [facility], [address] [place] [address] 56694#### CARMEN, 22079-0, CMP ####[facility] ([id number])[address] [place] [address] 46359Wocketzxqoz distribution width (RBC) [Ratio]16.8 % High11.5-15.0[facility] HospitalComment on above:Performed By: #### CHRISTINE, 6-4, 55094-3, 8, 2132-07 ####[facility] ([id number])[address] [facility], [address] [place] [address] 80767#### CARMEN, 87416-7, CMP ####[facility] ([id number])[address] [place] [address] 64643Vlcfakdbhr (Bld) [Volume fraction]24.2 %Spq80-54GasTfzmnsMercy Health [facility] Hospital Comment on above:Performed By: #### CHRISTINE, 6-4, 00205-7, 2284-06, 2132-07 ####[facility] ([id number])0 [facility], [address] [place] [address] 57970#### CARMEN, 39677-8, CMP ####[facility] ([id number])[address] [place] [address] 71713Apntblxfgq (Bld) [Mass/Vol]7.9 g/dLLow 11.7-15.5PTriHealth Bethesda Butler HospitalComment on above:Performed By: #### SUKIR, 6-4, 72819-8, 2283-8, 2132-07 ####[facility] ([id number])[address], [address] [place] [address] 92567#### CBCDanielle, 88703-4, CMP ####[facility] ([id number])[address] [place] [address] 17977Ikprurjdsod (Bld) [#/Vol]0.4 10*3/uLLow1.0-3.[address] [place] [address] Comment on above:Performed By: #### CHRISTINE, 6-4, 22347-0, 2284-06, 2132-07 ####[facility] ([id number])[address]130 [facility], [address] [place] [address] 25989#### CBCDanielle, , CMP ####[facility] ([id number])[address] [place] [address] 34381Xlqxdrpnown/100 WBC (Bld)2.7 % NormalProWhite Rock Medical CenterComment on above:Performed By: #### CHRISTINE, 6- 4, 93396-5, 2284-06, 2132-07 ####[facility] ([id number])[address], [address] [place] [address] 11367#### CBCDanielle, , CMP ####[facility] ([id number])[address] [place] [address] 25885HXJ (RBC) [Entitic mass]27.6 dmZxybec42-13XauFsijsyWhite Rock Medical CenterComment on above:Performed By: #### SUKIR, 2276-4, 36570-7, 8, 2132-07 ####[facility] ([id number])[address] [facility], [address] [place] [address] 43692#### CBCA, 82637-8, CMP ####[facility] ([id number])[address] [place] [address] 71450JEZK (RBC) [Mass/Vol]32.8 g/bERnbqmu60-01 [facility] HospitalComment on above:Performed By: #### CHRISTINE, 6-4, 23595-0, 8, 2132-07 ####[facility] ([id number])[address] [facility], [address] [place] [address] 86690#### CARMEN, 49018-1, CMP ####[facility] ([id number])[address] [place] [address] 38905PIA (RBC) [Entitic vol]84 gEOgnntw48-255SueHolqyx [facility] CenterComment on above: Performed By: #### CHRISTINE, 2275-4, 28478-3, 2284-06, 2132-07 ####[facility] ([id number])[address] [facility], [address] [place] [address] 64359#### CARMEN, 65947-0, CMP ####[facility] ([id number])[address] [place] [address] 08077Nffvpurxn (Bld) [#/Vol]0.8 10*3/uLNormal0-0.9 [facility] HospitalComment on above:Performed By: #### CHRISTINE, 6-4, 63054-6, 2284-06, 2132-07 ####[facility] ([id number])213 [facility], [address] [place] [address] 72868#### CARMEN, 43438-6, CMP ####[facility] ([id number])[address] [place] [address] 75688 Monocytes/100 WBC (Bld)5.4 %NormalProWhite Rock Medical CenterComment on above: Performed By: #### SUKIR, 6-4, 46554-8, 8, 2132-07 ####[facility] ([id number])[address], [address] [place] [address] 63975#### CARMEN, 53663-0, CMP ####[facility] ([id number])[address] [place] [address] 21157Jgthgrgbvzy/100 WBC (Bld)91.7 %NormalProMedica Highland Springs Surgical CenterComment on above:Performed By: #### SUKIR, 6-4, 72068-7, , 2132-07 ####[facility] ([id number])[address], [address] [place] [address] 78686#### CARMEN, 73936-8, CMP ####[facility] ([id number])[address] [place] [address] 56707Sizmwgjq mean volume (Bld) [Entitic vol]7.9 fLNormal7-12[facility] CenterComment on above: Performed By: #### CHRISTINE, 6-4, 26960-2, 2284-06, 2132-07 ####[facility] ([id number])[address], [address] [place] [address] 02860#### CARMEN, 36168-2, CMP ####[facility] ([id number])[address] [place] [address] 89935Vsypwqpbx (Bld) [#/Vol]273 10*3/oLLjjqnj196-358 [facility] CenterComment on above:Performed By: #### FEPR, 6-4, 68106-4, 2284-06, 2132-07 ####[facility] ([id number])[address], [address] [place] [address] 09956#### CARMEN, 34291-5, CMP ####[facility] ([id number])[address] [place] [address] 29944PMA COUNT2.87 X10E12/LLow3.80-5.20ProWhite Rock Medical CenterComment on above: Performed By: #### CHRISTINE, 6-4, 59641-9, 2283-8, 2132-07 ####[facility] ([id number])[address] [facility], [address] [place] [address] 74609#### CARMEN, 94577-0, CMP ####[facility] ([id number])[address] [place] [address] 04987ESK (Bld) [#/Vol]14.3 10*3/uLHigh4.0-11.0ProWhite Rock Medical CenterComment on above:Performed By: #### CHRISTINE, 6-4, 74654-9, , 2132-07 ####[facility] ([id number])[address] [facility], [address] [place] [address] 80939#### CARMEN, 25462-8, CMP ####[facility] ([id number])[address] [place] [address] 98653UDIQCROWWJMTL METABOLIC PANELon 69-91-3421Enxsxae [Mass/Vol]3.0 g/dLLow3.2-5.3[facility] CenterComment on above:Performed By: #### CHRISTINE, 6-4, 53710-1, , 2132-07 ####[facility] ([id number])213 [facility], [address] [place] [address] 22014#### CARMEN, 89528-9, CMP ####[facility] ([id number])[address] [place] [address] 14920RKU [Catalytic activity/Vol]104 U/NYahaet73-456WydHdsgij Barrington HospitalComment on above: Performed By: #### CHRISTINE, 6-4, 06951-2, 2283-8, 2132-07 ####[facility] ([id number])[address] [facility], [address] [place] [address] 60669#### CARMEN, 31791-1, CMP ####[facility] ([id number])[address] [place] [address] 33826CLG [Catalytic activity/Vol]14 U/LNormal0-31 [facility] HospitalComment on above:Performed By: #### CHRISTINE, 6-4, 20630-2, 8, 2132-07 ####[facility] ([id number])[address] [facility], [address] [place] [address] 07446#### CARMEN, 09545-5, CMP ####[facility] ([id number])[address] [place] [address] 16014Fpxkg gap [Moles/Vol]8 mmol/LNormal5-15[facility] CenterComment on above: Performed By: #### CHRISTINE, 6-4, 85383-2, 2284-06, 2132-07 ####[facility] ([id number])[address] [facility], [address] [place] [address] 18554#### CARMEN, 53874-5, CMP ####[facility] ([id number])[address] [place] [address] 56363XNF [Catalytic activity/Vol]19 U/LNormal0-41 [facility] HospitalComment on above:Performed By: #### CHRISTINE, 2276-4, 87114-8, 8, 2132-07 ####[facility] ([id number])[address] [facility], [address] [place] [address] 77951#### CARMEN, 48233-8, CMP ####[facility] ([id number])[address] [place] [address] 90924 Bilirubin [Mass/Vol]0.6 mg/dLNormal0.3-1.2ProMedAlameda HospitalComment on above:Performed By: #### CHRISTINE, 6-4, 96798-1, 2284-06, 2132-07 ####[facility] ([id number])[address] [facility], [address] [place] [address] 09497#### CBCDanielle, 54826-0, CMP ####[facility] ([id number])[address] [place] [address] 72306Vohkvol [Mass/Vol]8.1 mg/dLLow8.5-10.5 [facility] CenterComment on above:Performed By: #### CHRISTINE, 2275-4, 51586-4, 2284-06, 2132-07 ####[facility] ([id number])2[address] [facility], [address] [place] [address] 99998#### CARMEN, 01671-6, CMP ####[facility] ([id number])[address] [place] [address] 39904 Chloride [Moles/Vol]103 mmol/UVrfjgi46-006EhzAeohul [facility] CenterComment on above:Performed By: #### CHRISTINE, 2275-4, 22903-3, 2284-06, 2132-07 ####[facility] ([id number])[address] [facility], [address] [place] [address] 09108#### CBCA, 95508-0, CMP ####[facility] ([id number])[address] [place] [address] 79844HR1 [Moles/Vol]25 mmol/IXyhvwa55-07VkxVvejxqTriHealth Bethesda Butler HospitalComment on above:Performed By: #### CHRISTINE, 6-4, 30495-1, 2284-06, 2132-07 ####[facility] ([id number])[address] [place] [address] 55640#### CARMEN, 53276-8, CMP ####[facility] ([id number])[address] [place] [address] 90015Qhazltmqzf [Mass/Vol]1.73 mg/dLHigh0.40-1.00ProWhite Rock Medical CenterComment on above: Result Comment: METHOD TRACEABLE TO IDMS STANDARDPerformed By: #### HCRISTINE, 2276- 4, 29676-7, 2283-8, 2132-07 ####[facility] ([id number])[address] [place] [address] 96592#### CARMEN, 91203-0, CMP ####[facility] ([id number])[address] [place] [address] 74154 GFR/1.73 sq M.predicted among non-blacks MDRD (S/P/Bld) [Vol rate/Area]30 mL/min/{1.73_m2}Low>59ProWhite Rock Medical CenterComment on above:Result Comment: Reported eGFR is based on theCKD-EPI 2020 equation that doesnot use a race coefficient.Performed By: #### CHRISTINE, 6-4, 67821-8, 2283-8, 2132-07 ####[facility] ([id number])[address] [place] [address] 28450#### CARMEN, 17460-8, CMP ####[facility] ([id number])[address] [place] [address] 04478Nvxwvsv [Mass/Vol]238 mg/dDSadh49-[address] HelenaComment on above:Performed By: #### CHRISTINE, 2276-4, 51364-5, 2283-8, 2132-07 ####[facility] ([id number])[address] [place] [address], [place] [address]#### CARMEN, 10789-6, CMP ####[facility] ([id number])[address] [place] [address] 91339 Potassium [Moles/Vol]4.5 mmol/LNormal3.5-5.0ProWhite Rock Medical CenterComment on above:Performed By: #### CHRISTINE, 6-4, 08970-6, 2284-06, 2132-07 ####[facility] ([id number])[address]129 [facility], [address] [place] [address] 06105#### CARMEN, 16395-3, CMP ####[facility] ([id number])[address] [place] [address] 06401Iesosnb [Mass/Vol]6.5 g/dLNormal6.0-8.0 [facility] CenterComment on above:Performed By: #### CHRISTINE, 6-4, 96352-7, 2284-06, 2132-07 ####[facility] ([id number])[address]129 [facility], [address] [place] [address] 16474#### CARMEN, 32167-2, CMP ####[facility] ([id number])[address] [place] [address] 27480Ulyqog [Moles/Vol]136 mmol/XDgfigl862-144FxbJttsnl [facility]remont HospitalComment on above: Performed By: #### CHRISTINE, 6-4, 52124-6, 2284-06, 2132-07 ####[facility] ([id number])[address] [facility], [address] [place] [address] 40205#### CARMEN, 76694-3, CMP ####[facility] ([id number])[address] [place] [address] 90965Abho nitrogen [Mass/Vol]34 mg/dLHigh5-27ProWhite Rock Medical CenterComment on above:Performed By: #### SUKIR, 2276-4, 29756-8, 2284- 8, 2132-07 ####[facility] ([id number])[address] [place] [address], [address] [address]#### CARMEN, 25192-5, CMP ####[facility] ([id number])[address] [place] [address] 68931TAECU OCCULT BLOODon 46-68-7038Rejpkxloie.gastrointestinal Ql (Stl)NegativeNormalNEGProWhite Rock Medical CenterComment on above:Performed By: #### 2335-8 ####[facility] ([id number])[address] [place] [address] 13940NUPFOAHU on 15-42-7558Lmuzocsi [Mass/Vol]98 ng/eQTdetyd12-897QtjBdyikk [facility] Comment on above:Performed By: #### CHRISTINE, 2276-4, 89939-3, 8, 2132-07 ####[facility] ([id number])[address] [place] [address] 72629#### CAMREN, 44205-6, CMP ####[facility] ([id number])[address] [place] [address] 80774Bxulrt [Mass/Vol]on 02-13-2025 FOLIC ACID5.2 ng/mLLow>5.8ProWhite Rock Medical CenterComment on above:Result Comment: NEW REFERENCE RANGEPerformed By: #### CHRISTINE, 2276-4, 88623-1, 2283-8, 2132-07 ####[facility] ([id number])[address] [place] [address], [address] [address]#### CARMEN, 54228-6, CMP ####[facility] ([id number])[address] [place] [address] 84014Fsyqfod Glucometer (BldC) [Mass/Vol]on 74-36-5059Hagfvnw [Mass/Vol]218 mg/qIMzzl25-67ThaOicomrMercy Health Allen HospitalGlucose [Mass/Vol]277 mg/iSUvjr73-08DboBnqwdrMercy Health Allen Hospital Glucose [Mass/Vol]259 mg/xENpxu82-61PpmLdgueoMercy Health Allen HospitalGlucose [Mass/Vol] 210 mg/aBHnon18-65EdeSacsxwMercy Health Allen HospitalHGBon 85-98-1143Zckeipjbes (Bld) [Volume fraction]24.3 %Pkk96-40WxcSntncjMercy Health Allen HospitalComment on above: Performed By: #### HH ####[facility] ([id number])[address] [place] [address] 83958Hptgzskuoz (Bld) [Mass/Vol]7.9 g/dLLow 11.7-15.5ProMedAlameda HospitalComment on above:Performed By: #### HH ####[facility] ([id number])[address] [place] [address] 66435GJTY PROFILEon 70-45-7356Phgj [Mass/Vol]11 ug/wQLit79-710 [facility] HospitalComment on above:Performed By: #### CHRISTINE, 2276-4, 89556-5, 2283-8, 2132-07 ####[facility] ([id number])[address] [place] [address], [address] [place] [address] 23373#### CARMEN, 10929-8, CMP ####[facility] ([id number])[address] [place] [address] 39564TGKI LKVZIJZ304 ug/iRHbbmrg486-386HouNnweveMercy Health Allen HospitalComment on above: Performed By: #### CHRISTINE, 2276-4, 42914-5, 2283-8, 2132-07 ####[facility] ([id number])[address] [place] [address], [address] [place] [address] 27782#### CARMEN, 15835-1, CMP ####[facility] ([id number])[address] [place] [address] 19260KSFE SATURATION4 % DCZPAQNLHXTwt85-18CchMvbmyq [facility] HospitalComment on above:Performed By: #### CHRISTINE, 6-4, 57576-6, 2283- 8, 2132-07 ####[facility] ([id number])[address] [facility], [address] [place] [address]#### CARMEN, 62778-9, CMP ####[facility] ([id number])[address] [place] [address] 90536HFDQFMQTLdc 94-75-3653Hqnacuznl [Mass/Vol]1.9 mg/dLNormal1.8-2.6ProWhite [facility] Medical Center Comment on above:Performed By: #### 28828-6 ####[facility] ([id number])[address] [place] [address] 81070Nadokfsgp [Mass/Vol]1.7 mg/dLLow1.8-2.6ProWhite Rock Medical CenterComment on above: Performed By: #### CHRISTINE, 2275-4, 53680-5, 2284-06, 2132-07 ####[facility] ([id number])[address] [facility], [address] [place] [address]#### CARMEN, 81040-6, CMP ####[facility] ([id number])[address] [place] [address] 16440KCNROZW B12on 89-21-8378Dtbifxtnc (Vitamin B12) [Mass/Vol]187 pg/iNSzlxwq526-053VlvKbcsju [facility] HospitalComment on above: Performed By: #### CHRISTINE, 6-4, 12827-9, 8, 2132-07 ####[facility] ([id number])[address] [facility], [address] [place] [address]95[address]#### CARMEN, 29452-4, CMP ####[facility] ([id number])[address] [place] [address] 09309Pfhxtcc D+Metabolites [Mass/Vol]on 80-52-2156VCPYJAA D 25 HYD TOT36.2 ng/tRQukjyg33-726ZghQnxrrf [facility] HospitalComment on above: Result Comment: Vitamin D status 25 [place] Vitamin D Deficiency <20 ng/mLInsufficiency 20-29 ng/mLSufficiency 30-100 ng/mLToxicity >100 ng/mLNOTE: A pediatric reference range has not beenestablished by the automatic head sawyer of this kit.The [place] [employer] recommendsa Vitamin D level of = or >20ng/mL in infantsand children.Performed By: #### FEPR, 2276-4, 62657-2, 2284-8, 2132-9 ####[facility] ([id number])[address] [place] [address], [address] [place] [address]#### CARMEN, 35059-0, CMP ####[facility] ([id number])[address] [place] [address] 63526JPXRFEZF BLOOD GASon 02-12-2025 TATO'S TESTNormalProWhite Rock Medical CenterComment on above:Performed By: #### ABG ####[facility] ([id number])[address] [place] [address] 38984Ojtw excess Calc (Bld) [Moles/Vol]4.0 mmol/LHigh0.0-2.0 ProMedicBaldwin Park HospitalComment on above:Performed By: #### ABG ####[facility] ([id number])[address] [place] [address] 19507Xudh mebgzzwpvzo94.6 [degF]Cwvoat54.0Mer[facility] Health Allen HospitalComment on above:Performed By: #### ABG ####[facility] ([id number])[address] [place] [address], [place] [address]HSO8 (Bld) [Moles/Vol]29.9 mmol/LHigh 22-26ProMediKindred Hospital - San Francisco Bay AreaComment on above:Performed By: #### ABG ####[facility] ([id number])[address] [place] [address], [place] [address]GPVJ. O2 CONC.30 %NormalMercy Health Allen HospitalComment on above:Performed By: #### ABG ####[facility] ([id number])[address] [place] [address], [place] [address]Pztpsp (Bld) [Partial pressure]76 mm[Hg]Spv47-460CzkJliztnWhite Rock Medical CenterComment on above:Performed By: #### ABG ####[facility] ([id number])[address] [place] [address], [place] [address]Hpfmef saturation in Blood95.0 %Normal>90ProWhite Rock Medical CenterComment on above:Performed By: #### ABG ####[facility] ([id number])[address] [place] [address] [place] [address]KULLIV SOURCENC Madison HealthComment on above:Performed By: #### ABG ####[facility] ([id number])[address] [place] [address], [place] [address]HHM275.9 CPZKNpeq75-64ZvqFykrzvWhite Rock Medical CenterComment on above:Performed By: #### ABG ####[facility] ([id number])[address] [place] [address] [place] [address]jC (Bld)7.386 [pH]Normal7.350-7.450 [facility] CenterComment on above:Performed By: #### ABG ####[facility] ([id number])[address] [place] [address] 92787BXWODT SITERRadNormalMercy Health Allen HospitalComment on above:Performed By: #### ABG ####[facility] ([id number])[address] [place] [address] 07814JWIBDF TYPEARTERIALNormalMercy Health Allen Hospital Comment on above:Performed By: #### ABG ####[facility] ([id number])[address] [place] [address] 66032YYVLN CULTUREon 96-89-9651Jsolmpel identified Aer cx Nom (Bld)ResistantMercy Health Allen HospitalComment on above:Performed By: #### 05536-3 ####[facility] ([id number])[address] [place] [address] 12457EHQPTDMERCY HEALTH [facility] ([id number])[address], [address] [place] [address] Bacteria identified Aer cx Nom (Bld)SPECIMEN NOTES RAC CULTURE RESULTS STAPHYLOCOCCUS AUREUS METHICILLIN RESISTANT FOR SUSCEPTIBILITY, SEE PREVIOUS REPORT.NormalMercy Health Allen HospitalComment on above:Performed By: #### 25742-6 ####[facility] ([id number])[address] [place], [place] [address]20[facility] ([id number])[address] [place] [address] 79[address]OTY AND AUTO DIFFon 20-21-9654FSABDSNQ BASOPHIL0.0 X10E9/LNormal0.0-0.2[facility] CenterComment on above:Performed By: #### CBCA, 3040-3, 65135-8, 19575-1, CMP, 07152-8, PINR, 88795-4 ####[facility] ([id number])[address] [place] [address] 03301TVNPTZCS NEUTROPHIL6.3 X10E9/LNormal1.5-6.6 [facility] Allen HospitalComment on above:Performed By: #### CBCA, 3040-3, 89730-9, 83801-3, CMP, 10611-6, PINR, 20121-0 ####[facility] ([id number])[address] [place] [address] 41138Iydilgdip/100 WBC (Bld)0.4 %NormalProWhite Rock Medical CenterComment on above:Performed By: #### CBCA, 3040-3, 95174-9, 88367-9, CMP, 54871-0, PINR, 90064-9 ####[facility] ([id number])[address] [place] [address] 96625 Eosinophils (Bld) [#/Vol]0.1 10*3/uLNormal0.0-0.4[facility] Comment on above:Performed By: #### CBCA, 3040-3, 14856-4, 10349-2, CMP, 68653- 9, PINR, 62266-7 ####[facility] ([id number])[address] [place] [address] 92933Diprehvkefw/100 WBC (Bld)1.1 %NormalMercy Health Allen HospitalComment on above:Performed By: #### CBCA, 3040-3, 34197-5, 70300-7, CMP, 27003-8, PINR, 08367-4 ####[facility] ([id number])[address] [place] [address] 73338Bcumxffvezn distribution width (RBC) [Ratio]17.0 %High11.5-15.0[facility] Comment on above:Performed By: #### CBCA, 3040-3, 20943-6, 85491-4, CMP, 88338- 9, PINR, 09498-1 ####[facility] ([id number])[address] [place] [address], [place] [address]Lavenshggk (Bld) [Volume fraction]29.2 %Bic85-30 [facility] Allen HospitalComment on above:Performed By: #### CBCDanielle, 3040-3, 37071-1, 76798-1, CMP, 14428-2, PINR, 39622-2 ####[facility] ([id number])[address] [place] [address] 90683Tbmjrcmvjw (Bld) [Mass/Vol]9.5 g/dLLow11.7-15.5PTriHealth Bethesda Butler HospitalComment on above: Performed By: #### CBCDanielle, 3040-3, 53175-7, 30976-4, CMP, 89204-6, PINR, 92244-2 ####[facility] ([id number])[address] [place] [address] 77318Qcdpwzzgrwz (Bld) [#/Vol]0.7 10*3/uLLow1.0-3.5PTriHealth Bethesda Butler HospitalComment on above:Performed By: #### CBCDanielle, 3040-3, 72649-5, 62760-4, CMP, 68550-7, PINR, 71665-3 ####[facility] ([id number])[address] [place] [address] 40053Xnqnxwetbde/100 WBC (Bld)9.2 %NormalProWhite Rock Medical CenterComment on above:Performed By: #### CBCA, 3040-3, 46858-4, 15981-7, CMP, 00619-0, PINR, 05832-6 ####[facility] ([id number])[address] [place] [address], [place] [address] MCH (RBC) [Entitic mass]27.3 mgXislmw18-10JvkVlrmujMercy Health Allen HospitalComment on above:Performed By: #### CBCA, 3040-3, 44229-5, 45137-9, CMP, 64586-2, PINR, 94884-1 ####[facility] ([id number])[address] [place] [address] 50004BCHN (RBC) [Mass/Vol]32.6 g/oWSkkldr76-68FcqDeaheoWhite Rock Medical CenterComment on above:Performed By: #### CBCA, 3040-3, 82870-3, 42514-4, CMP, 41526-7, PINR, 06098-4 ####[facility] ([id number])[address] [place] [address] 53455NAK (RBC) [Entitic vol]84 fLNormal 80-100Mer[facility] Health Allen HospitalComment on above:Performed By: #### CBCA, 3040- 3, 52451-6, 28268-4, CMP, 55160-3, PINR, 38648-8 ####[facility] ([id number])[address] [place] [address] 41082Yjxketrnx (Bld) [#/Vol]0.5 10*3/uLNormal0-0.9Mer[facility] Allen HospitalComment on above: Performed By: #### CBCA, 3040-3, 22347-2, 31580-3, CMP, 95481-8, PINR, 83219-2 ####[facility] ([id number])[address] [place] [address] 79536Jyllfjqyy/100 WBC (Bld)7.0 %NormalProWhite Rock Medical CenterComment on above:Performed By: #### CBCA, 3040-3, 10629-7, 34275-2, CMP, 84590-2, PINR, 51622-8 ####[facility] ([id number])[address] [place] [address] 30494Ildquzotmng/100 WBC (Bld)82.3 %Normal [facility] CenterComment on above:Performed By: #### CBCA, 3040-3, 03917-9, 47461-2, CMP, 15747-3, PINR, 30046-6 ####[facility] ([id number])[address] [place] [address] 79912Wwpbkmzx mean volume (Bld) [Entitic vol]7.6 fLNormal7-12[facility] CenterComment on above:Performed By: #### CBCA, 3040-3, 17849-5, 17746-3, CMP, 10000-7, PINR, 53628-9 ####[facility] ([id number])[address] [place] [address] 37507Aetlhojti (Bld) [#/Vol]384 10*3/iPJdhtba038-632JqhQyuajy [facility]remont HospitalComment on above:Performed By: #### CBCA, 3040-3, 04213-5, 48502-3, CMP, 22964-6, PINR, 23050-9 ####[facility] ([id number])[address] [place] [address] 06219FVP COUNT3.49 X10E12/LLow3.80-5.20[facility] HospitalComment on above:Performed By: #### CBCA, 3040-3, 47719-4, 33373-4, CMP, 29081-8, PINR, 81334-5 ####[facility] ([id number])[address] [place] [address] 33949 WBC (Bld) [#/Vol]7.7 10*3/uLNormal4.0-11.0ProWhite Rock Medical CenterComment on above:Performed By: #### CBCA, 3040-3, 65179-1, 94005-6, CMP, 32263-1, PINR, 66233-7 ####[facility] ([id number])[address] [place] [address], [place] [address]JDEDNHTTJXRNY METABOLIC PANELon 73-83-0640Knomwob [Mass/Vol]3.7 g/dLNormal3.2-5.3PTriHealth Bethesda Butler HospitalComment on above: Performed By: #### CBCA, 3040-3, 85461-5, 01396-6, CMP, 25707-7, PINR, 68141-3 ####[facility] ([id number])[address] [place] [address], [place] [address]HAQ [Catalytic activity/Vol]137 U/FIrbu07-787TsbCdkjduWhite Rock Medical CenterComment on above:Performed By: #### CBCDanielle, 3040-3, 43799-9, 00047-2, CMP, 26824-8, PINR, 19454-9 ####[facility] ([id number])[address] [place] [address], [place] [address]NYP [Catalytic activity/Vol]17 U/LNormal0-31PTriHealth Bethesda Butler HospitalComment on above: Performed By: #### CBCA, 3040-3, 05292-1, 87042-7, CMP, 66889-4, PINR, 39227-3 ####[facility] ([id number])[address] [place] [address], [place] [address]Llhea gap [Moles/Vol]11 mmol/LNormal5-15ProWhite Rock Medical CenterComment on above:Performed By: #### CBCA, 3040-3, 59551-6, 28079-7, CMP, 55906-2, PINR, 44165-2 ####[facility] ([id number])[address] [place] [address], [place] [address]UXZ [Catalytic activity/Vol]22 U/LNormal0-41 [facility] CenterComment on above:Performed By: #### CARMEN, 3040-3, 76976-1, 03173-6, CMP, 13782-5, PINR, 75671-3 ####[facility] ([id number])[address] [place] [address] 16800Ublxxghzs [Mass/Vol]0.6 mg/dLNormal0.3-1.2PTriHealth Bethesda Butler HospitalComment on above: Performed By: #### CARMEN, 3040-3, 79319-0, 19635-8, CMP, 45321-5, PINR, 23689-8 ####[facility] ([id number])[address] [place] [address] 06968Qpnijuf [Mass/Vol]9.4 mg/dLNormal8.5-10.5PTriHealth Bethesda Butler HospitalComment on above:Performed By: #### CARMEN, 3040-3, 77922-8, 08548-0, CMP, 33053-7, PINR, 51225-5 ####[facility] ([id number])[address] [place] [address], [place] [address]Xnqnpqwf [Moles/Vol]98 mmol/LNormal 98-109[facility] CenterComment on above:Performed By: #### CARMEN, 3040- 3, 20580-1, 50511-2, CMP, 09393-7, PINR, 97649-9 ####[facility] ([id number])[address] [place] [address], [place] [address]OX9 [Moles/Vol]28 mmol/BQtftgo37-41OjcCbgmvfTriHealth Bethesda Butler HospitalComment on above:Performed By: #### CARMEN, 3040-3, 45754-6, 68541-9, CMP, 74121-8, PINR, 23800-3 ####[facility] ([id number])[address] [place] [address] 93093 Creatinine [Mass/Vol]1.79 mg/dLHigh0.40-1.00Mer[facility] Health Allen HospitalComment on above:Result Comment: METHOD TRACEABLE TO IDMS STANDARDPerformed By: #### CARMEN, 3040-3, 21162-4, 18149-8, CMP, 24462-2, PINR, 02341-1 ####[facility] ([id number])[address] [place] [address] 54699UQN/1.73 sq M.predicted among non-blacks MDRD (S/P/Bld) [Vol rate/Area]29 mL/min/{1.73_m2}Low>59ProWhite Rock Medical CenterComment on above:Result Comment: Reported eGFR is based on theCKD-EPI 2020 equation that doesnot use a race coefficient.Performed By: #### CARMEN, 3040-3, 81841-8, 30268-5, CMP, 77394-0, PINR, 91312-2 ####[facility] ([id number])[address] [place] [address] 22610Uifrltx [Mass/Vol]159 mg/vPVcsi62-15CssXtinkyWhite Rock Medical CenterComment on above:Performed By: #### CARMEN, 3040-3, 77315-7, 92661-7, CMP, 45090-4, PINR, 92328-6 ####[facility] ([id number])[address] [place] [address] 64328Gzdjangwi [Moles/Vol]5.1 mmol/LHigh3.5-5.0ProWhite Rock Medical CenterComment on above: Performed By: #### CARMEN, 3040-3, 29895-9, 65961-5, CMP, 25772-6, PINR, 88828-8 ####[facility] ([id number])[address], [place], [place] [address]Wipytjr [Mass/Vol]8.0 g/dLNormal6.0-8.0Mer[facility] Health Allen HospitalComment on above:Performed By: #### CARMEN, 3040-3, 88904-1, 31301-5, CMP, 62001-3, PINR, 93184-3 ####[facility] ([id number])[address] [place] [address], [place] [address]Adaayc [Moles/Vol]137 mmol/OKqbisi651-859 [facility] HospitalComment on above:Performed By: #### CARMEN, 3040-3, 93256-0, 32944-3, CMP, 97718-8, PINR, 52282-0 ####[facility] ([id number])[address] [place] [address] 64555Hver nitrogen [Mass/Vol]29 mg/dLHigh5-27ProWhite Rock Medical CenterComment on above:Performed By: #### CARMEN, 3040-3, 94852-6, 92432-8, CMP, 35026-3, PINR, 11956-5 ####[facility] ([id number])[address] [place] [address], [place] [address]SL BRAIN WO CONTon 63-94-0032VP BRAIN WO CONTNormalProWhite Rock Medical CenterLIPASEon 30-10-9694Pmfqji [Catalytic activity/Vol]26 U/POwlofk56-99 [facility] HospitalComment on above:Performed By: #### CARMEN, 3040-3, 50683-3, 48407-1, CMP, 57909-7, PINR, 77398-3 ####[facility] ([id number])[address] [place] [address], [place] [address]Apjlzzg (P obed) [Moles/Vol]on 79-80-6059YYATMVB W/REFLEX0.9 mmol/LNormal0.4-2.0Community Memorial Hospitalment on above:Result Comment: Result did not trigger repeat Lactate,re-order if needed.Performed By: #### 54733-4 ####[facility] ([id number])[address] [place] [address] 29275 MAGNESIUMon 90-77-4853Ykwefyfow [Mass/Vol]1.9 mg/dLNormal1.8-2.6ProWhite Rock Medical CenterComment on above:Performed By: #### CBCA, 3040-3, 51140-1, 36602-9, CMP, 86290-5, PINR, 96486-0 ####[facility] ([id number])[address] [place] [address] 69888ZNCFFAT AND INRon 60-23-3423TKX Coag (PPP) [Relative time]1.0 {INR}Normal0.9-1.2[facility] CenterComment on above:Performed By: #### CBCA, 3040-3, 70016-0, 61897-8, CMP, 13445-5, PINR, 01535-2 ####[facility] ([id number])[address] [place] [address] 06721DJ Coag (PPP) [Time]11.7 sNormal9.8-13.2 [facility] on above:Result Comment: NEW REFERENCE RANGE Performed By: #### CBCA, 3040-3, 30198-8, 80006-8, CMP, 46202-1, PINR, 57999-3 ####[facility] ([id number])[address] [place] [address] 00124Zsyatzqadvhgo [place] [Mass/Vol]on 18-89-4069LFRPKJSNWDLYR6.14 ng/mLHigh<0.05ProWhite Rock Medical CenterCompromedica charles and [facility] on above:Result Comment: NOTE<0.50 ng/mL - Low risk of severe sepsis and/or septic shock.<2.00 ng/mL - Recommend retesting within 6-24 hours.>2.00 ng/mL - High risk of sepsis and/or septic shock.Performed By: #### CBCA, 3040-3, 38785-9, 14964-2, CMP, 71876-0, PINR, 73095-4 ####[facility] ([id number])[address] [place] [address] 58686HXMC/FLU A+B/RSV by NAAT/Molecularon 02-12-2025 SARS/FLU A+B/RSV by NAAT/MolecularNormalProWhite Rock Medical CenterComment on above:Performed By: #### COVFLR ####[facility] ([id number])[address] [place] [address] 82135Cmhrfckx I.cardiac High sensitivity method [Mass/Vol]on HOUR TROP I, HIGH DVXHLSVJTCJ69 ng/L Normal<16Mer[facility] HospitalComment on above:Performed By: #### 26639-7 ####[facility] ([id number])[address] [place] [address] 16219FJCZGHVS I, HIGH MMRXJWLMLTS36 ng/LNormal<16ProWhite Rock Medical CenterComment on above:Performed By: #### CBCA, 3040-3, 76924-2, 53411-5, CMP, 12516-9, PINR, 55780-5 ####[facility] ([id number])[address] [place] [address] 65457SIDIQJDGLSep 80-22-7506Axlfquihm Ql (U)NegativeNormalNEGProWhite Rock Medical CenterComment on above:Performed By: #### UA ####[facility] ([id number])[address] [place] [address] 95820OGLYW/HGBTraceAbnormalNEGProWhite Rock Medical CenterComment on above:Performed By: #### UA ####[facility] ([id number])[address] [place] [address] 98885Xxdzf (U)YELLOWNormalYELLOWProOur Lady Of Mercy Hospitalca [facility] CenterComment on above:Performed By: #### UA ####[facility] ([id number])[address] [place] [address], [place] [address]Cekztmy Ql (U)NegativeNormalNEGProMayhill Hospital on above:Performed By: #### UA ####[facility] ([id number])[address] [place] [address] 37813Ctokjab Ql (U) TraceAbnormalNEGProOur Lady Of Mercy Hospitalca [facility] CenterComment on above:Performed By: #### UA ####[facility] ([id number])[address] [place] [address] 69395Wrbfljtqr esterase Test strip Ql (U)SMALLAbnormalNEGProWhite Rock Medical CenterComment on above:Performed By: #### UA ####[facility] ([id number])[address] [place] [address] 89701Kkltetu Ql (U)PositiveAbnormalNEGProWhite Rock Medical CenterComment on above:Performed By: #### UA ####[facility] ([id number])[address] [place] [address] 47136jP (U)6.5 [pH]Normal5.0-8.5[facility] CenterComment on above:Performed By: #### UA ####[facility] ([id number])[address] [place] [address] 30997Llfrhbb Ql (U)30 mg/dLAbnormalNEGProWhite Rock Medical CenterComment on above:Performed By: #### UA ####[facility] ([id number])[address] [place] [address] 52643M.B.CELLS14 /hpfHigh0-5PTriHealth Bethesda Butler HospitalComment on above:Performed By: #### UA ####[facility] ([id number])[address] [place] [address] 11487Uhrvgqkn gravity (U) [Rel density]1.020 Normal1.003-1.035ProWhite Rock Medical CenterComment on above:Performed By: #### UA ####[facility] ([id number])[address] [place] [address] 58720FZRHAEAX EPITHELIUM1 /hpfNormal0-5PTriHealth Bethesda Butler HospitalComment on above:Performed By: #### UA ####[facility] ([id number])[address] [place] [address] 11108ZTPJDHZZQVQK EPITH1 /uhuZvzq8GavFgothpWhite Rock Medical CenterComment on above:Performed By: #### UA ####[facility] ([id number])[address] [place] [address] 16867JEDXBTKSELLVNHfbwmlfyFWJJHHgcZcmjcs [facility]remont HospitalComment on above:Performed By: #### UA ####[facility] ([id number])[address] [place] [address] 03962Jnojjdjwdopz Qn (U)0.2 {Artie'U}/dL Normal<1.1PTriHealth Bethesda Butler HospitalComment on above:Performed By: #### UA ####[facility] ([id number])[address] [place] [address] 18442G.B.CELLS>047Lkym5-6QfqJlauypTriHealth Bethesda Butler HospitalComment on above: Performed By: #### UA ####[facility] ([id number])[address] [place] [address] [place] [address]QFT CLUMPSFEWAbnormalNONEPTriHealth Bethesda Butler HospitalComment on above:Performed By: #### UA ####[facility] ([id number])[address] [place] [address], [facility], [place] [address]VOQES CULTUREon 83-29-8555Ruayjtvi identified Cx Nom (U)SusceptibleMercy Health Allen Hospital Comment on above:Performed By: #### 630-4 ####[facility] ([id number])[address] [facility], [place] [address]SWU MACROSCOPIC NURon 10-88-5370UZYCMCWPS NURNegativeNormalNEGMercy Health Allen HospitalComment on above:Performed By: #### NUM ####[facility] ([id number])[address] [place] [address], [facility], [place] [address]UBGLU/HGB NURTraceAbnormalNEGMercy Health Allen HospitalComment on above:Performed By: #### NUM ####[facility] ([id number])[address] [place] [address], [place] 18609XCYXQJB ZQR677 mg/dLAbnormalNEGMercy Health Allen HospitalComment on above:Performed By: #### NUM ####[facility] ([id number])[address] [place] [address], [place] [address]IFCJBIP NUR15 mg/dLAbnoalNEGMercy Health Allen Hospital Comment on above:Performed By: #### NUM ####[facility] ([id number])[address] [place] [address], [place] [address]ZBOHTPACP ESTERASE NURSmallAbnormalNEGMercy Health Allen HospitalComment on above:Performed By: #### NUM ####[facility] ([id number])[address] [place] [address], [place] [address]MCIOAEG NURPositiveAbnormalNEGMercy Health Allen HospitalComment on above:Performed By: #### NUM ####[facility] ([id number])[address] [place] [address], [place] 79[address]RU NUR6.5Normal 5.0-8.5PTriHealth Bethesda Butler HospitalComment on above:Performed By: #### NUM ####[facility] ([id number])[address] [place] [address] 765[address]DESIPNU EQL059 mg/dLAbnormalNEGProWhite Rock Medical CenterComment on above:Performed By: #### NUM ####[facility] ([id number])[address] [place] [address] 44492AWNLKSDZ GRAVITY NUR1.020Normal 1.003-1.035ProWhite Rock Medical CenterComment on above:Performed By: #### NUM ####[facility] ([id number])[address] [place] [address] 22428HQQEZUMQOHDF NUR0.2 eu/dLNormal<1.1PTriHealth [facility] Comment on above:Performed By: #### NUM ####[facility] ([id number])[address] [place] [address] 46860VC CHEST 1 VWon 81-00-9125XK CHEST 1 VWNormalProWhite Rock Medical CenteraPTT Coag (PPP) [Time]on 85-88-2860kLWS Coag (Bld) [Time]28 wGlquoh24-27RrlVzsciyMercy Health Allen HospitalComment on above:Result Comment: NEW REFERENCE RANGEPerformed By: #### CBCA, 3040-3, 89259-4, 25767-3, CMP, 66254-6, PINR, 81454-7 ####[facility] ([id number])[address] [place] [address] [id number] - ALBUMIN:CREATININE URINE RATIOon 09-48-1923WIO/CREAT RATIO16.2 mg/g creatNormal 0.0-30.0Mercy Health Allen HospitalComment on above:Performed By: #### JOIE ####[facility] ([id number])[address] [place] [address], [address] [place] [address]#### UA ####[facility] ([id number])[address] [place] [address] 40760Qpvchma DL <= 20 mg/L (U) [Mass/Vol]1.3 mg/dLNormal 0.0-1.9[facility] CenterComment on above:Performed By: #### JOIE ####[facility] ([id number])[address] [place] [address], [address] [place] [address]#### UA ####[facility] ([id number])[address] [place] [address] 60942QFKYN CREAT80.04 mg/dLNormalProOur Lady Of Mercy Hospitalca [facility] Surgical CenterComment on above:Performed By: #### JOIE ####[facility] ([id number])[address] [place] [address]#### UA ####[facility] ([id number])[address] [place] [address] 88732TNDYPKEXAQyc 94-61-4756Vscozzywj Ql (U)NegativeNormalNEGProOur Lady Of Mercy Hospitalca [facility] CenterComment on above:Performed By: #### JOIE ####[facility] ([id number])[address] [place] [address], [address] [place] [address]#### UA ####[facility] ([id number])[address] [place] [address] 33485SCMDT/HGBTraceAbnormalNEGProOur Lady Of Mercy Hospitalca [facility] Surgical CenterComment on above: Performed By: #### JOIE ####[facility] ([id number])[address] [place] [address], [address] [place] [address]#### UA ####[facility] ([id number])[address] [place] [address] 66348Ffgit (U)YELLOW NormalYELLOWProMedica Highland Springs Surgical CenterComment on above:Performed By: #### JOIE ####[facility] ([id number])[address], [place] [address]#### UA ####[facility] ([id number])[address] [place] [address], [facility], [place] [address]Ygktsex Ql (U)250 mg/dLAbnormalNEGProOur Lady Of Mercy Hospitalca [facility] Surgical CenterComment on above:Performed By: #### JOIE ####[facility] ([id number])[address], [place] [address]#### UA ####[facility] ([id number])[address] [place] [address], [place] [address]Dteuaam Ql (U)NegativeNormalNEGProWhite Rock Medical CenterComment on above: Performed By: #### JOIE ####[facility] ([id number])[address], [address] [place] [address]#### UA ####[facility] ([id number])[address] [place] [address], [place] [address]Vcwafyqps esterase Test strip Ql (U)SMALLAbnormalNEGProWhite Rock Medical CenterComment on above:Performed By: #### JOIE ####[facility] ([id number])[address], [address] [place] [address]#### UA ####[facility] ([id number])[address] [place] [address] 33221Iburrwf Ql (U) PositiveAbnormalNEGProOur Lady Of Mercy Hospitalca [place] Springs Surgical CenterComment on above:Performed By: #### JOIE ####[facility] ([id number])[address], [address], [place] [address]#### UA ####[facility] ([id number])[address] [place] [address] 61341kZ (U)6.0 [pH]Normal5.0-8.5PTriHealth Bethesda Butler HospitalComment on above:Performed By: #### JOIE ####[facility] ([id number])[address] [facility], [address] [place] [address]#### UA ####[facility] ([id number])[address] [place] [address] 95514Dksfboz Ql (U)NegativeNormalNEGProWhite Rock Medical Center Comment on above:Performed By: #### JOIE ####[facility] ([id number])[address] [place] [address], [address] [address]#### UA ####[facility] ([id number])[address] [place] [address] 23080F.B.CELLS2 /hpfNormal0-5PTriHealth Bethesda Butler HospitalComment on above: Performed By: #### JOIE ####[facility] ([id number])[address] [facility], [address] [place] [address]#### UA ####[facility] ([id number])[address] [place] [address] 66449Lqswntoq gravity (U) [Rel density]1.936Zetufa7.003-1.035ProWhite Rock Medical CenterComment on above:Performed By: #### JOIE ####[facility] ([id number])[address] [facility], [address] [place] [address]#### UA ####[facility] ([id number])[address] [place] [address] 09145WASVTZJG EPITHELIUM3 /hpfNormal0-5PTriHealth Bethesda Butler HospitalComment on above:Performed By: #### JOIE ####[facility] ([id number])[address], [address] [place] [address]#### UA ####[facility] ([id number])[address] [place] [address] 89127LSOXRXKSXFYOAIocytvfrYAPNH [facility] CenterComment on above:Performed By: #### JOIE ####[facility] ([id number])[address], [address] [place] [address]#### UA ####[facility] ([id number])[address] [place] [address] 33889Rrlmsgodcbzf Qn (U)0.2 {Artie'U}/dLNormal<1.1PTriHealth Bethesda Butler HospitalComment on above:Performed By: #### JOIE ####[facility] ([id number])[address], [address] [place] [address]#### UA ####[facility] ([id number])[address] [place] [address] 17879F.B.CELLS>041Spbu0-4TrdPoueqjTriHealth Bethesda Butler HospitalComment on above:Performed By: #### JOIE ####[facility] ([id number])[address], [address] [place] [address]#### UA ####[facility] ([id number])[address] [place] [address] 04121OZF CLUMPSFEW AbnormalNONEPTriHealth Bethesda Butler HospitalComment on above:Performed By: #### JOIE ####[facility] ([id number])[address], [address] [place] [address]#### UA ####[facility] ([id number])[address] [place] [address] 90878PTCKJ METABOLIC PANLon 74-52-4359Lfixm gap [Moles/Vol]12 mmol/LNormal5-15Mer[facility] Health Allen HospitalComment on above: Performed By: #### CARMEN, 2777-1, 98127-7, BMP, 87381-9, 2730-8 ####[facility] ([id number])[address], [address], [place] [address] Calcium [Mass/Vol]9.0 mg/dLNormal8.5-10.5PTriHealth Bethesda Butler HospitalComment on above:Performed By: #### CARMEN, 2777-1, 77678-6, BMP, 65020-7, 2730- ####[facility] ([id number])[address], [address], [place] [address] Chloride [Moles/Vol]95 mmol/HAfl18-381WftSoerbmWhite Rock Medical CenterComment on above:Performed By: #### CARMEN, 2777-1, 02208-9, BMP, , 2731-06 ####[facility] ([id number])[address] [address], [place] [address]CZ0 [Moles/Vol]30 mmol/ATmznrt52-97FwaVfmvcvTriHealth Bethesda Butler HospitalComment on above: Performed By: #### CARMEN, 2777-1, 05174-6, BMP, 28328-1, 8 ####[facility] ([id number])[address] [address] [place] [address] Creatinine [Mass/Vol]2.12 mg/dLHigh0.40-1.00Mercy Health Allen HospitalComment on above:Result Comment: METHOD TRACEABLE TO IDMS STANDARDPerformed By: #### CARMEN, 2777-1, 04111-7, BMP, 13048-3, 2731-06 ####[facility] ([id number])[address] [address], [place] [address]KRO/1.73 sq M.predicted among non-blacks MDRD (S/P/Bld) [Vol rate/Area]23 mL/min/{1.73_m2}Low>59ProWhite Rock Medical CenterComment on above:Result Comment: Reported eGFR is based on theCKD-EPI 2020 equation that doesnot use a race coefficient.Performed By: #### CARMEN, 2777-1, 81216-4, BMP, 18505-9, 2730-8 ####[facility] ([id number])[address], [address], [place] [address]Frasitw [Mass/Vol]268 mg/dL Dfbq28-90QxyUwcsciWhite Rock Medical CenterComment on above:Performed By: #### CARMEN, 2777-1, 75431-0, BMP, 59726-8, 2731-06 ####[facility] ([id number])[address], [address], [place] [address]Xnxrrxpbz [Moles/Vol]5.1 mmol/L High3.5-5.0ProWhite Rock Medical CenterComment on above:Performed By: #### CARMEN, 2777-1, 45270-7, BMP, 55585-1, 2730- ####[facility] ([id number])[address], [address], [place] [address]Fouych [Moles/Vol]137 mmol/L Fkojjp780-902SfcZkpbwaWhite Rock Medical CenterComment on above:Performed By: #### CARMEN, 2777-1, 83915-3, BMP, 31917-4, 2730-8 ####[facility] ([id number])[address], [address], [place] [address]Eove nitrogen [Mass/Vol]40 mg/dLHigh5-27ProWhite Rock Medical CenterComment on above:Performed By: #### CARMEN, 2777-1, 71368-5, BMP, 83217-6, 2730-8 ####[facility] ([id number])[address], [address]TO[facility], [place] [address]MHP AND AUTO DIFFon 02-02-2025 ABSOLUTE BASOPHIL0.0 X10E9/LNormal0.0-0.2PTriHealth Bethesda Butler HospitalComment on above:Performed By: #### CBCA, 2777-1, 33657-8, [facility], , 2731-06 ####[facility] ([id number])[address], [address] [place] [address] ABSOLUTE NEUTROPHIL2.9 X10E9/LNormal1.5-6.6ProWhite Rock Medical CenterComment on above:Performed By: #### CBCA, 7-, 43482-8, [facility], , 2731-06 ####[facility] ([id number])[address] [address] Basophils/100 WBC (Bld)0.5 %NormalProWhite Rock Medical CenterComment on above: Performed By: #### CBCDanielle, 2776-, 56017-7, [facility], , 2731-06 ####[facility] ([id number])[address] [address] Eosinophils (Bld) [#/Vol]0.3 10*3/uLNormal0.0-0.4[facility] Comment on above:Performed By: #### CBCA, 2776-, 27702-9, [facility], , 2731-06 ####[facility] ([id number])[address] [address]Gzflcgadbei/100 WBC (Bld)5.4 %NormalProWhite Rock Medical CenterComment on above:Performed By: #### CBCA, 2777-1, 70319-9, [facility], , 2731-06 ####[facility] ([id number])[address] [address] Erythrocyte distribution width (RBC) [Ratio]16.4 %High11.5-15.0Mer[facility] Health Allen HospitalComment on above:Performed By: #### CBCDanielle, 2777-1, 79522-1, BMP, - , 2731-06 ####[facility] ([id number])[address], [address], [place] [address]Avfoesdosn (Bld) [Volume fraction]29.2 %New90-62XqaLzzvvhWhite Rock Medical CenterComment on above:Performed By: #### CBCDanielle, 2777-1, 71951-8, BMP, 03756-8, 2731-06 ####[facility] ([id number])[address], [address], [place] [address]Gxdxukpqbf (Bld) [Mass/Vol]9.5 g/dLLow11.7-15.5 [facility] HospitalComment on above:Performed By: #### CBCDanielle, 2777-1, 75462-8, BMP, , 2731-06 ####[facility] ([id number])[address], [address], [place] [address]Dfogktkuomq (Bld) [#/Vol]1.8 10*3/uLNormal 1.0-3.5[facility] CenterComment on above:Performed By: #### CBCDanielle, 2777- 1, 12186-7, BMP, , 2731-06 ####[facility] ([id number])[address], [address], [place] [address]Uajtzusrurz/100 WBC (Bld)31.9 % NormalProWhite Rock Medical CenterComment on above:Performed By: #### CBCA, 2777- 1, 67660-9, BMP, 06974-1, 2731-06 ####[facility] ([id number])[address], [address], [place] [address]UKQ (RBC) [Entitic mass]27.6 pg Gxmeds51-94FzhVwsejjWhite Rock Medical CenterComment on above:Performed By: #### CBCA, 2777-1, 14621-0, BMP, 80588-7, 2730-8 ####[facility] ([id number])[address], [address] [place] [address]TJAQ (RBC) [Mass/Vol]32.7 g/dL Bcjisd96-82PcmEjkhsm Fremont HospitalComment on above:Performed By: #### CBCA, 2777-1, 87992-7, BMP, 79651-3, 2730-8 ####[facility] ([id number])[address], [address] [place] [address] 110[address]XVE (RBC) [Entitic vol]84 fL Jewrve45-794WbvNwmckcWhite Rock Medical CenterComment on above:Performed By: #### CBCA, 2777-1, 86709-4, BMP, 96037-5, 2730- ####[facility] ([id number])[address], [address] [place] [address]Nvmfyialu (Bld) [#/Vol]0.6 10*3/uLNormal0-0.9Mer[facility] HospitalComment on above:Performed By: #### CBCA, 2777-1, 53349-8, BMP, 94790-7, 2730- ####[facility] ([id number])[address], [address] [place] [address]Ffdxvgqph/100 WBC (Bld)10.2 %NormalProWhite Rock Medical CenterComment on above:Performed By: #### CBCA, 2777-1, 68490-8, BMP, 56597-1, 2730-8 ####[facility] ([id number])[address], [address] [place] [address] 164[address]Bsqaefocdof/100 WBC (Bld)52.0 % NormalProMercy Health – The Jewish Hospital HospitalComment on above:Performed By: #### CBCA, 2777- 1, 58561-3, BMP, 71579-4, 2730-8 ####[facility] ([id number])[address], [address] [place] [address] 239[address]Yjjhrzlf mean volume (Bld) [Entitic vol]8.0 fLNormal7-12PTriHealth Bethesda Butler HospitalComment on above: Performed By: #### CBCDanielle, 2777-1, 96093-8, BMP, 21267-5, 2730- ####[facility] ([id number])[address], [address] [place] [address] Platelets (Bld) [#/Vol]338 10*3/pQXkzjkv296-194LlmBahepz [facility]remont HospitalComment on above:Performed By: #### CARMEN, 2777-1, 48594-5, BMP, 62257-7, 2730- ####[facility] ([id number])[address], [address] [place] [address]YIG COUNT3.46 X10E12/LLow3.80-5.20ProWhite Rock Medical CenterComment on above:Performed By: #### CBCDanielle, 2777-1, 96644-9, BMP, 85535-1, 2730- ####[facility] ([id number])[address], [address] [place] [address] 08389LVK (Bld) [#/Vol]5.6 10*3/uLNormal4.0-11.0[facility] HospitalComment on above:Performed By: #### CBCA, 2777-1, 49428-9, BMP, 26485-2, 2730- ####[facility] ([id number])[address], [address] [place] [address] MAGNESIUMon 87-97-1283Xwqzxhool [Mass/Vol]2.0 mg/dLNormal1.8-2.6[facility] HospitalComment on above:Performed By: #### CBCA, 2777-1, 98731-2, BMP, 46914-1, 2730-8 ####[facility] ([id number])[address] [facility] [address], [place] [address]JVHWXJBYIAes 03-73-4470Naqesfbxf [Mass/Vol]4.7 mg/dL Normal2.4-4.9ProWhite Rock Medical CenterComment on above:Performed By: #### CBCDanielle, 2777-1, 36809-9, BMP, 85280-5, 2730-8 ####[facility] ([id number])[address] [facility] [address], [place] [address]Ajvskarkre.intact [Mass/Vol]on 66-71-8991MIA XLCBZU740 pg/sCJhvc63-13FmlUqnwadWhite Rock Medical CenterComment on above:Performed By: #### CARMEN, 2777-1, 68591-8, BMP, 71732-2, 2730-8 ####[facility] ([id number])[address] [facility] [address] [place] [address] Vitamin D+Metabolites [Mass/Vol]on 88-04-4344NUYIRMS D 25 HYD TOT48.7 ng/mL Ftrhkf74-151TleNlzkjcWhite Rock Medical CenterComment on above:Result Comment: Vitamin D status 25 [place] Vitamin D Deficiency <20 ng/mLInsufficiency 20-29 ng/mLSufficiency 30-100 ng/mLToxicity >100 ng/mLNOTE: A pediatric reference range has not beenestablished by the automatic head sawyer of this kit.The [place] [employer] recommendsa Vitamin D level of = or >20ng/mL in infantsand children.Performed By: #### CBCA, 2777-1, 90008-7, BMP, 62347-9, 2730-8 ####[facility] ([id number])[address] [facility], [address], [place] [address]RVAYQZ ANTIGEN 27.29on 36-17-5878BNQEXP ANTGN 27.2956.4 U/mLHigh<=39.0Pro[facility] Springs [facility] CenterComment on above:Result Comment: NOTEINTERPRETIVE INFORMATION: Cancer [...] alone for a diagnosis of malignancy.Methodology: Siemens IceCure Medical IM BR 27.29 (BR) chemiluminescentimmunoassay was used. Results obtained with different assaymethods or kits cannot be used interchangeably.Performed By: Dheere Bolo[address] [place] [address]Wbmbvamehp Director: Brendon Ruiz MD, PhDCLIA Number: [id number] By: #### RUBEN, 6875-9, CBCA ####[facility] ([id number])[address] [facility], [address] [place] [address]#### CANTGN ####[facility] ([id number])[address] [place] [address]AEQ AND AUTO DIFFon 14-54-7348TQSPETBJ BASOPHIL0.0 X10E9/LNormal0.0-0.2[facility] CenterComment on above: Performed By: #### RUBEN, 6875-9, CBCA ####[facility] ([id number])[address] [facility], [address] [place] [address]#### CANTGN ####[facility] ([id number])[address] [place] [address] ABSOLUTE NEUTROPHIL4.9 X10E9/LNormal1.5-6.6ProWhite Rock Medical CenterComment on above:Performed By: #### RUBEN, 6875-9, CBCA ####[facility] ([id number])[address], [address] [place] [address]#### CANTGN ####[facility] ([id number])[address] [place] [address] Basophils/100 WBC (Bld)0.6 %NormalProWhite Rock Medical CenterComment on above: Performed By: #### RUBEN, 6875-9, CBCA ####[facility] ([id number])0 [facility], [address] [place] [address]#### CANTGN ####[facility] ([id number])[address] [place] [address] Eosinophils (Bld) [#/Vol]0.2 10*3/uLNormal0.0-0.4[facility] Comment on above:Performed By: #### RUBEN, 6875-9, CBCA ####[facility] ([id number])[address] [address] [place] [address]#### CANTGN ####[facility] ([id number])[address] [place] [address]Stjfugvgksc/100 WBC (Bld)2.1 %NormalProWhite Rock Medical CenterComment on above:Performed By: #### RUBEN, 6875-9, CBCA ####[facility] ([id number])[address] [facility] [address] [place] [address]#### CANTGN ####[facility] ([id number])[address] [place] [address] 45[address]Vowtqubqfgg distribution width (RBC) [Ratio]16.2 %High 11.5-15.0[facility] HospitalComment on above:Performed By: #### RUBEN, 6875-9, CBCA ####[facility] ([id number])0 [facility], [address] [place] [address]#### CANTGN ####[facility] ([id number])[address] [place] [address] 28[address]Lexhosguzq (Bld) [Volume fraction] 29.1 %Dvk80-43UzhYxkrnjWhite Rock Medical CenterComment on above:Performed By: #### RUBEN, 6875-9, CBCA ####[facility] ([id number])0 [facility], [address] [place] [address]#### CANTGN ####[facility] ([id number])[address] [place] [address] 35045Vlvecbbwta (Bld) [Mass/Vol]9.6 g/dLLow11.7-15.5PTriHealth Bethesda Butler HospitalComment on above:Performed By: #### RUBEN, 6875-9, CBCA ####[facility] ([id number])0 [facility], [address] [place] [address]#### CANTGN ####[facility] ([id number])[address] [place] [address] 454[address]Sgpplicjrwy (Bld) [#/Vol]1.4 10*3/uLNormal1.0-3.5PTriHealth Bethesda Butler HospitalCompromedica charles [facility] on above: Performed By: #### RUBEN, 6875-9, CBCA ####[facility] ([id number])0 [facility], [address] [place] [address]#### CANTGN ####[facility] ([id number])[address] [place] [address] 40542 Lymphocytes/100 WBC (Bld)19.6 %NormalProWhite Rock Medical CenterComment on above: Performed By: #### RUBEN, 6875-9, CBCA ####[facility] ([id number])[address] [address]#### CANTGN ####[facility] ([id number])[address] [place] [address] MCH (RBC) [Entitic mass]27.3 qvTfbrdt39-58SqjXldlbtWhite Rock Medical CenterComment on above:Performed By: #### RUBEN, 6875-9, CBCA ####[facility] ([id number])[address] [address]#### CANTGN ####[facility] ([id number])[address] [place] [address] MCHC (RBC) [Mass/Vol]32.9 g/xHEfmtxj44-92HqzPadrogWhite Rock Medical CenterComment on above:Performed By: #### RUBEN, 6875-9, CBCA ####[facility] ([id number])[address] [address]#### CANTGN ####[facility] ([id number])[address] [place] [address] MCV (RBC) [Entitic vol]83 iGWkifgg50-436MafOylwpm Fremont HospitalComment on above:Performed By: #### RUBEN, 6875-9, CBCA ####[facility] ([id number])[address] [address]#### CANTGN ####[facility] ([id number])[address] [place] [address] Monocytes (Bld) [#/Vol]0.8 10*3/uLNormal0-0.9ProDale Medical Center Barrington HospitalComment on above:Performed By: #### CMP, 6875-9, CBCA ####[facility] ([id number])[address], [address] [place] [address]#### CANTGN ####[facility] ([id number])[address] [place] [address]214 Monocytes/100 WBC (Bld)10.5 %NormalMercy Health Allen HospitalComment on above: Performed By: #### CMP, 6875-9, CBCA ####[facility] ([id number])0 [facility], [address] [place] [address]#### CANTGN ####[facility] ([id number])[address] [place] [address] 22829 Neutrophils/100 WBC (Bld)67.2 %NormalProWhite Rock Medical CenterComment on above: Performed By: #### CMP, 6875-9, CBCA ####[facility] ([id number])0 [facility], [address] [place] [address]#### CANTGN ####[facility] ([id number])[address] [place] [address] Platelet mean volume (Bld) [Entitic vol]8.5 fLNormal7-12Pro[facility] Surgical CenterComment on above:Performed By: #### CMP, 6875-9, CBCA ####[facility] ([id number])0 W.[facility] [address] [place] [address]#### CANTGN ####[facility] ([id number])[address] [place] [address] 16653Uvowvjayw (Bld) [#/Vol]333 10*3/nLBujfem376-788TafWvjgoa Fremont HospitalComment on above:Performed By: #### CMP, 6875-9, CBCA ####[facility] ([id number])2130 [facility] [address] [place] [address]#### CANTGN ####[facility] ([id number])[address] [place] [address] 73626KKI COUNT3.50 X10E12/LLow3.80-5.20ProWhite Rock Medical CenterComment on above:Performed By: #### RUBEN, 6875-9, CBCA ####[facility] ([id number])2130 [facility], [address] [place] [address]#### CANTGN ####[facility] ([id number])[address] [place] [address] 23354QIQ (Bld) [#/Vol]7.3 10*3/uLNormal4.0-11.0ProWhite Rock Medical CenterComment on above:Performed By: #### RUBEN, 6875-9, CBCA ####[facility] ([id number])[address] [place] [address]#### CANTGN ####[facility] ([id number])[address] [place] [address] 55600SKOUJOALYWGZQ METABOLIC PANELon 05-70-6969Tldxdwh [Mass/Vol]3.9 g/dLNormal3.2-5.3Pro[facility] Surgical CenterComment on above: Performed By: #### RUBEN, 6875-9, CBCA ####[facility] ([id number])[address] [place] [address]#### CANTGN ####[facility] ([id number])[address] [place] [address] 40882 ALP [Catalytic activity/Vol]102 U/JDfezwq52-684MpfQilvigWhite Rock Medical CenterComment on above:Performed By: #### RUBEN, 6875-9, CBCA ####[facility] ([id number])0 [facility], [address], [place] [address]#### CANTGN ####[facility] ([id number])[address] [place] [address]3357 ALT [Catalytic activity/Vol]16 U/LNormal0-31PTriHealth Bethesda Butler HospitalComment on above:Performed By: #### RUBEN, 6875-9, CBCA ####[facility] ([id number])0 [facility] [address], [place] [address]#### CANTGN ####[facility] ([id number])[address] [place] [address] Anion gap [Moles/Vol]11 mmol/LNormal5-15ProWhite Rock Medical CenterComment on above:Performed By: #### RUBEN, 6875-9, CBCA ####[facility] ([id number])[address] [address]#### CANTGN ####[facility] ([id number])[address] [place] [address] 28832 AST [Catalytic activity/Vol]18 U/LNormal0-41ProWhite Rock Medical CenterComment on above:Performed By: #### RUBEN, 6875-9, CBCA ####[facility] ([id number])[address] [place] [address], [address], [place] [address]#### CANTGN ####[facility] ([id number])[address] [place] [address] Bilirubin [Mass/Vol]0.5 mg/dLNormal0.3-1.2PTriHealth Bethesda Butler HospitalComment on above:Performed By: #### RUBEN, 6875-9, CBCA ####[facility] ([id number])[address] [place] [address]#### CANTGN ####[facility] ([id number])[address] [place] [address] 38961 Calcium [Mass/Vol]9.6 mg/dLNormal8.5-10.5PTriHealth Bethesda Butler HospitalComment on above:Performed By: #### RUBEN, 6875-9, CBCA ####[facility] ([id number])[address] [place] [address]#### CANTGN ####[facility] ([id number])[address] [place] [address] 07233 Chloride [Moles/Vol]96 mmol/HAhb15-026SudCsfwdwWhite Rock Medical CenterComment on above:Performed By: #### RUBEN, 6875-9, CBCA ####[facility] ([id number])[address] [place] [address]#### CANTGN ####[facility] ([id number])[address] [place] [address] 05404 CO2 [Moles/Vol]27 mmol/AMutynu48-48LxrZuzonyTriHealth Bethesda Butler HospitalComment on above: Performed By: #### RUBEN, 6875-9, CBCA ####[facility] ([id number])[address] [place] [address] 60[address]#### CANTGN ####[facility] ([id number])[address] [place] [address] 70651 Creatinine [Mass/Vol]1.75 mg/dLHigh0.40-1.00ProWhite Rock Medical CenterComment on above:Result Comment: METHOD TRACEABLE TO IDMS STANDARDPerformed By: #### RUBEN, 6875-9, CBCA ####[facility] ([id number])[address] [place] [address]#### CANTGN ####[facility] ([id number])[address] [place] [address] 29919ZLD/1.73 sq M.predicted among non- blacks MDRD (S/P/Bld) [Vol rate/Area]29 mL/min/{1.73_m2}Low>59ProWhite Rock Medical CenterComment on above:Result Comment: Reported eGFR is based on theCKD-EPI 2020 equation that doesnot use a race coefficient.Performed By: #### RUBEN, 6875- 9, CBCA ####[facility] ([id number])[address] [place] [address], [address] [place] [address]#### CANTGN ####[facility] ([id number])[address] [place] [address] 01225Xzesmxr [Mass/Vol]291 mg/dLHigh 65-99ProWhite Rock Medical CenterComment on above:Performed By: #### RUBEN, 6875-9, CBCA ####[facility] ([id number])[address] [place] [address], [address] [place] [address]#### CANTGN ####[facility] ([id number])[address] [place] [address] 99532Miqinitzn [Moles/Vol]5.1 mmol/L High3.5-5.0ProWhite Rock Medical CenterComment on above:Performed By: #### RUBEN, 6875-9, CBCA ####[facility] ([id number])[address] [place] [address], [address] [place] [address]#### CANTGN ####[facility] ([id number])[address] [place] [address] 38841Xcyfbts [Mass/Vol]7.7 g/dLNormal 6.0-8.0ProWhite Rock Medical CenterComment on above:Performed By: #### RUBEN, 6875- 9, CBCA ####[facility] ([id number])[address] [place] [address], [address] [place] [address]#### CANTGN ####[facility] ([id number])[address] [place] [address] 72679Sihhvi [Moles/Vol]134 mmol/LNormal 134-146ProWhite Rock Medical CenterComment on above:Performed By: #### RUBEN, 6875- 9, CBCA ####[facility] ([id number])[address] [place] [address], [address] [place] [address]#### CANTGN ####[facility] ([id number])[address] [place] [address] 02651Nwta nitrogen [Mass/Vol]31 mg/dL High5-27ProWhite Rock Medical CenterComment on above:Performed By: #### RUBEN, 6875- 9, CBCA ####[facility] ([id number])[address] [place] [address] [place] [address] 115[address]#### CANTGN ####[facility] ([id number])[address] [place] [address] 97325Hqngtr Ag 15-3 Qnon 37-54-4562IG 15 313.6 U/mLNormal0.0-31.3PTriHealth Bethesda Butler HospitalComment on above:Result Comment: The method used for this test is [employer] DXI chemiluminescent immunoassay.Values obtained by different assay methodscannot be used interchangeably.Performed By: #### RUBEN, 6875-9, CBCA ####[facility] ([id number])[address] [place] [address] 27[address]#### CANTGN ####[facility] ([id number])[address] [place] [address] 13109JCU AND AUTO DIFFon 74-25-0084RLYIXOFK BASOPHIL0.0 X10E9/L Normal0.0-0.2PTriHealth Bethesda Butler HospitalComment on above:Performed By: #### CARMEN, 3040-01, CMP ####[facility] ([id number])[address] [place] [address] 10927EBTFJNRI NEUTROPHIL5.7 X10E9/LNormal1.5-6.6[facility] HospitalComment on above:Performed By: #### CARMEN 3040-01, CMP ####[facility] ([id number])[address] [place] [address] 70504Sqcxlheif/100 WBC (Bld)0.4 %NormalProWhite Rock Medical CenterComment on above:Performed By: #### CARMEN 3040-01, CMP ####[facility] ([id number])[address] [place] [address] 09472Fewnrkmfglm (Bld) [#/Vol]0.0 10*3/uLNormal0.0-0.4[facility] Comment on above:Performed By: #### CARMEN 3040-01, CMP ####[facility] ([id number])[address] [place] [address] 24733 Eosinophils/100 WBC (Bld)0.4 %NormalMercy Health Allen HospitalComment on above: Performed By: #### CARMEN 3040-01, CMP ####[facility] ([id number])[address] [place] [address] 55572Zwpgzmwdnwr distribution width (RBC) [Ratio]16.0 %High11.5-15.0[facility] Comment on above:Performed By: #### CARMEN 3040-01, CMP ####[facility] ([id number])[address] [place] [address] 20799 Hematocrit (Bld) [Volume fraction]33.3 %Whu07-14GqpAifikmMercy Health Allen Hospital Comment on above:Performed By: #### CARMEN 3040-3, CMP ####[facility] ([id number])[address] [place] [address] 62534 Hemoglobin (Bld) [Mass/Vol]11.0 g/dLLow11.7-15.5PTriHealth Bethesda Butler Hospital Comment on above:Performed By: #### CARMEN, 3039-3, CMP ####[facility] ([id number])[address] [place] [address] 84799 Lymphocytes (Bld) [#/Vol]1.2 10*3/uLNormal1.0-3.5PTriHealth Bethesda Butler Hospital Comment on above:Performed By: #### CARMEN, 3040-01, CMP ####[facility] ([id number])[address] [place] [address] 56464 Lymphocytes/100 WBC (Bld)16.3 %NormalProWhite Rock Medical CenterComment on above: Performed By: #### CARMEN, 3040-01, CMP ####[facility] ([id number])[address] [place] [address] 12390PWZ (RBC) [Entitic mass]27.5 qxNhaplz40-80BldNhyldxWhite Rock Medical CenterComment on above: Performed By: #### CARMEN, 3, CMP ####[facility] ([id number])[address] [place] [address] 27673WTNX (RBC) [Mass/Vol]33.0 g/eXSamdfv68-14NqdGxliicWhite Rock Medical CenterComment on above: Performed By: #### CARMEN, 3039-3, CMP ####[facility] ([id number])[address] [place] [address] 42684PMQ (RBC) [Entitic vol]83 iJTueneq87-188IplObxmar Fremont HospitalComment on above: Performed By: #### CARMEN, 3039-3, CMP ####[facility] ([id number])[address] [place] [address] [place] [address]Jvvbflxtl (Bld) [#/Vol]0.5 10*3/uLNormal0-0.9Mer[facility] HospitalComment on above: Performed By: #### CARMEN, 3040-3, CMP ####[facility] ([id number])[address] [place] [address] 56742Dgeuihuws/100 WBC (Bld)6.2 %NormalMercy Health Allen HospitalComment on above:Performed By: #### CARMEN, 0-3, CMP ####[facility] ([id number])[address] [place] [address] 32943Jscnirtjdpn/100 WBC (Bld)76.7 %Normal [facility] HospitalComment on above:Performed By: #### CARMEN, 0-3, CMP ####[facility] ([id number])[address] [place] [address] 42597Kvovkhxt mean volume (Bld) [Entitic vol]7.6 fLNormal7-12 [facility] HospitalComment on above:Performed By: #### CARMEN, 3040-3, CMP ####[facility] ([id number])[address] [place] [address] 87493Xnaxjcxdx (Bld) [#/Vol]309 10*3/hUHlutce371-042TljHvioif [facility]remont HospitalComment on above:Performed By: #### CARMEN, 3040-3, CMP ####[facility] ([id number])[address] [place] [address] 88432KRO COUNT4.00 X10E12/LNormal3.80-5.20[facility] HospitalComment on above:Performed By: #### CARMEN, 3040-3, CMP ####[facility] ([id number])[address] [place] [address], [place] [address]QYS (Bld) [#/Vol]7.5 10*3/uLNormal4.0-11.0Mer[facility] HospitalComment on above:Performed By: #### CARMEN, 0-3, CMP ####[facility] ([id number])[address] [place] [address], [place] [address]HDQFJBUEVQXAA METABOLIC PANELon 58-53-0536Npttovu [Mass/Vol]3.9 g/dLNormal3.2-5.3PTriHealth Bethesda Butler HospitalComment on above:Performed By: #### CARMEN 3039-3, CMP ####[facility] ([id number])[address] [place] [address], [place] [address]WXK [Catalytic activity/Vol]110 U/KGxnelk54-356DfxCdtdqaWhite Rock Medical CenterComment on above:Performed By: #### CARMEN 3039-3, CMP ####[facility] ([id number])[address] [place] [address], [place] [address]FLU [Catalytic activity/Vol]21 U/LNormal0-31PTriHealth Bethesda Butler HospitalComment on above:Performed By: #### CARMEN, 3039-3, CMP ####[facility] ([id number])[address] [place] [address], [place] [address]Cbayh gap [Moles/Vol]12 mmol/LNormal5-15ProWhite Rock Medical CenterComment on above:Performed By: #### CARMEN, 3039-3, CMP ####[facility] ([id number])[address] [place] [address], [place] [address]FEL [Catalytic activity/Vol]32 U/LNormal0-41ProWhite Rock Medical Center Comment on above:Performed By: #### CARMEN, 3039-3, CMP ####[facility] ([id number])[address] [place] [address], [place] [address] Bilirubin [Mass/Vol]0.6 mg/dLNormal0.3-1.2PTriHealth Bethesda Butler HospitalComment on above:Performed By: #### CARMEN, 3040-3, CMP ####[facility] ([id number])[address] [place] [address], [place] [address]Ugakvry [Mass/Vol]9.4 mg/dLNormal8.5-10.5PTriHealth Bethesda Butler HospitalComment on above: Performed By: #### CARMEN, 3039-3, CMP ####[facility] ([id number])[address] [place] [address], [place] [address]Vwfuubyj [Moles/Vol]98 mmol/AAdarli98-115RajOcrbnzWhite Rock Medical CenterComment on above: Performed By: #### CARMEN 3, CMP ####[facility] ([id number])[address] [place] [address] 29822NL0 [Moles/Vol]25 mmol/HFqaozd66-66CaeIwvcfxTriHealth Bethesda Butler HospitalComment on above:Performed By: #### CARMEN, 3, CMP ####[facility] ([id number])[address] [place] [address] 31553Mtlzovfzab [Mass/Vol]1.32 mg/dLHigh0.40-1.[address] HelenaComment on above:Result Comment: METHOD TRACEABLE TO IDNM STANDARDPerformed By: #### CARMEN, 3040-3, CMP ####[facility] ([id number])[address] [place] [address], [place] [address]GQK/1.73 sq M.predicted among non-blacks MDRD (S/P/Bld) [Vol rate/Area]41 mL/min/{1.73_m2} Low>59ProWhite Rock Medical CenterComment on above:Result Comment: Reported eGFR is based on theCKD-EPI 2020 equation that doesnot use a race coefficient. Performed By: #### CARMEN, 3040-3, CMP ####[facility] ([id number])[address] [place] [address], [place] [address]Kkriabs [Mass/Vol]130 mg/cVHndg70-75TllQmkqsrMercy Health Allen HospitalComment on above:Performed By: #### CARMEN, 3039-3, CMP ####[facility] ([id number])[address] [place] [address], [place] [address]Ljqbcpvwb [Moles/Vol]4.6 mmol/LNormal 3.5-5.0ProWhite Rock Medical CenterComment on above:Performed By: #### CARMEN, 3039- 3, CMP ####[facility] ([id number])[address] [place] [address], [place] [address]Fqlzkfi [Mass/Vol]8.4 g/dLHigh6.0-8.0[facility] HospitalComment on above:Performed By: #### CARMEN, 0-3, CMP ####[facility] ([id number])[address] [place] [address], [place] [address]Zafeam [Moles/Vol]135 mmol/WHkhogj206-519OavMsglnu Fremont HospitalCompromedica char[facility] on above:Performed By: #### CARMEN, 0-3, CMP ####[facility] ([id number])[address] [place] [address], [place] [address]Vsjc nitrogen [Mass/Vol]26 mg/dLNormal5-27ProWhite Rock Medical CenterComment on above:Performed By: #### CARMEN, 3039-3, CMP ####[facility] ([id number])[address] [place] [address], [place] [address]SR ABDOMEN AND PELVIS W CONTon 97-19-2888EE ABDOMEN AND PELVIS W CONTNormalProWhite Rock Medical CenterLIPASEon 30-13-0563Inzyyl [Catalytic activity/Vol]27 U/KXdzbmw54-76ZohLtiejh Barrington HospitalComment on above:Performed By: #### CBCA, 3040-3, CMP ####[facility] ([id number])[address] [place] [address], [facility], [place] [address]PXSMU CULTUREon 98-88-2732Zrexwqgh identified Cx Nom (U)CULTURE RESULTS >100,000 ORGANISMS/ML NORMAL UROGENITAL FLORANoCleveland Clinic Mer[facility] Comment on above:Performed By: #### 630-4 ####[facility] ([id number])[address] [facility], [address], [place] [address]BEK MACROSCOPIC NURon 53-62-4628GZUEMRZMV NURNegativeNormalNEGMercy Health Allen HospitalComment on above:Performed By: #### NUM ####[facility] ([id number])[address] [place] [address], [facility], [place] [address]ILGIS/HGB NURMODERATEAbnormalNEG [facility] CenterComment on above:Performed By: #### NUM ####[facility] ([id number])[address] [place] [address], [place] [address]PWWGCRU NURNegativeNormalNEGMercy Health Allen HospitalComment on above: Performed By: #### NUM ####[facility] ([id number])[address] [place] [address], [place] [address]MSGULJY NURNegativeNormalNEGProWhite Rock Medical CenterComment on above:Performed By: #### NUM ####[facility] ([id number])[address] [place] [address], [place] [address] LEUKOCYTE ESTERASE NURTraceAbnormalNEGProWhite Rock Medical CenterComment on above:Performed By: #### NUM ####[facility] ([id number])[address] [place] [address], [facility], [place] [address]KKVCRUZ NURPositiveAbnormalNEGMercy Health Allen HospitalComment on above:Performed By: #### NUM ####[facility] ([id number])[address] [place] [address] 820[address]OM MARYJO 5.9Lffjsf8.0-8.5PTriHealth Bethesda Butler HospitalComment on above:Performed By: #### NUM ####[facility] ([id number])[address] [place] [address], [place] [address]ZZJFKEO THB711 mg/dLAbnormalNEGProWhite Rock Medical Center Comment on above:Performed By: #### NUM ####[facility] ([id number])[address] [place] [address], [place] [address]CYDXOPBA GRAVITY MARYJO>=1.708Moqjpq1.003-1.035ProWhite Rock Medical CenterComment on above:Performed By: #### NUM ####[facility] ([id number])[address] [place] [address] 11943EOHZTUBBLXKZ NUR0.2 eu/dLNormal<1.1PTriHealth Bethesda Butler HospitalComment on above:Performed By: #### NUM ####[facility] ([id number])[address] [place] [address], [place] [address]ASD AND AUTO DIFF on 49-96-1473QKLZEFTA BASOPHIL0.0 X10E9/LNormal0.0-0.2PTriHealth [facility] Comment on above:Performed By: #### 2639-3, 62007-2, 2157-04, CBCA, PINR, CMP ####[facility] ([id number])[address] [place] [address] 30882NRPFUGCY NEUTROPHIL5.7 X10E9/LNormal1.5-6.6ProWhite Rock Medical CenterComment on above:Performed By: #### 2639-3, 16288-9, 2157-04, CBCA, PINR, CMP ####[facility] ([id number])[address] [place] [address], [place] [address]Qemgcvfgm/100 WBC (Bld)0.3 %NormalProWhite Rock Medical CenterComment on above:Performed By: #### 2639-3, 15954-1, 2157-04, CBCA, PINR, CMP ####[facility] ([id number])[address] [place] [address] 53[address]Dufljbtwfjx (Bld) [#/Vol]0.1 10*3/uLNormal0.0-0.4ProWhite Rock Medical CenterComment on above:Performed By: #### 2639-3, 99053-8, 2157-04, CBCA, PINR, CMP ####[facility] ([id number])[address] [place] [address] 65013Zfyhpooydns/100 WBC (Bld)0.8 %NormalProWhite Rock Medical CenterComment on above:Performed By: #### 2639-3, 03876-9, 2157-04, CBCA, PINR, CMP ####[facility] ([id number])[address] [place] [address] 16509Ktiaxvrykam distribution width (RBC) [Ratio]16.0 % High11.5-15.0ProWhite Rock Medical CenterComment on above:Performed By: #### 2639- 3, 46033-4, 2157-04, CBCA, PINR, CMP ####[facility] ([id number])[address] [place] [address] 71692Hgjuaayrel (Bld) [Volume fraction]33.4 %Mmo16-72CznDbvnydWhite Rock Medical CenterComment on above:Performed By: #### 2639-3, 42030-1, 2157-04, CBCA, PINR, CMP ####[facility] ([id number])[address] [place] [address] 09634Jiolwjnhiv (Bld) [Mass/Vol]11.0 g/dLLow11.7-15.5PTriHealth Bethesda Butler HospitalComment on above: Performed By: #### 2639-3, 91030-6, 2157-04, CBCA, PINR, CMP ####[facility] ([id number])[address] [place] [address] 41932 Lymphocytes (Bld) [#/Vol]1.2 10*3/uLNormal1.0-3.5PTriHealth [facility]hesda [facility] Hospital Comment on above:Performed By: #### 2639-3, 22106-1, 2157-04, CBCA, PINR, CMP ####[facility] ([id number])[address] [place] [address] 79494Cxvamrkzmvv/100 WBC (Bld)15.7 %NormalProWhite Rock Medical CenterComment on above:Performed By: #### 2639-3, 40132-1, 2157-04, CBCA, PINR, CMP ####[facility] ([id number])[address] [place] [address] 47837OAZ (RBC) [Entitic mass]27.4 iwWjijdn04-49IafCjhfizWhite Rock Medical CenterComment on above:Performed By: #### 2639-3, 35638-8, 2157-04, CBCA, PINR, CMP ####[facility] ([id number])[address] [place] [address] 70285CMEC (RBC) [Mass/Vol]32.8 g/qCTnhvkg30-10AoiPcwycaWhite Rock Medical CenterComment on above:Performed By: #### 2639-3, 68380-1, 2157-04, CBCA, PINR, CMP ####[facility] ([id number])[address] [place] [address] 949[address]KPC (RBC) [Entitic vol]83 iQPbatpu05-263ChkIylowr [facility]remont HospitalComment on above:Performed By: #### 2639-3, 44974-3, 2157-04, CBCA, PINR, CMP ####[facility] ([id number])[address] [place] [address] 20845Imhlfoesw (Bld) [#/Vol]0.7 10*3/uLNormal0-0.9 [facility] CenterComment on above:Performed By: #### 2639-3, 38933-3, 2157-04, CBCA, PINR, CMP ####[facility] ([id number])[address] [place] [address] 86058Ouwrrperp/100 WBC (Bld)8.9 %NormalProWhite Rock Medical CenterCompromedica charles and [facility] hospital on above:Performed By: #### 2639-3, 51462-9, 2157-04, CBCA, PINR, CMP ####[facility] ([id number])[address] [place] [address] 96019Isievbtkgcp/100 WBC (Bld)74.3 %NormalProWhite Rock Medical CenterComment on above:Performed By: #### 2639-3, 67615-7, 2157-04, CBCA, PINR, CMP ####[facility] ([id number])[address] [place] [address] 08488Jqymijpa mean volume (Bld) [Entitic vol]8.1 fL Normal7-12[facility] CenterComment on above:Performed By: #### 2639-3, 35226-4, 2157-04, CBCA, PINR, CMP ####[facility] ([id number])[address] [place] [address] 73903Rkiiphxjy (Bld) [#/Vol]295 10*3/dLFdppgz764-011UfeSsysfn [facility] CenterComment on above:Performed By: #### 2639-3, 00360-6, 2157-04, CBCA, PINR, CMP ####[facility] ([id number])[address] [place] [address] 08441GMZ COUNT4.01 X10E12/LNormal3.80-5.20ProWhite Rock Medical CenterComment on above:Performed By: #### 2639-3, 58415-2, 2157-04, CBCA, PINR, CMP ####[facility] ([id number])[address] [place] [address] 60331IKM (Bld) [#/Vol] 7.7 10*3/uLNormal4.0-11.0[facility] Allen HospitalComment on above:Performed By: #### 2639-3, 28869-6, 2157-04, CBCA, PINR, CMP ####[facility] ([id number])[address] [place] [address] 15131TV [Catalytic activity/Vol]on 92-48-8589KQD36 U/QCsqmoo59-407JikEtzzpaWhite Rock Medical CenterComment on above:Performed By: #### 2639-3, 72261-7, 2157-04, CBCA, PINR, CMP ####[facility] ([id number])[address] [place] [address] 06372CUZNHINNAHDHT METABOLIC PANELon 55-73-0027Gkbihmw [Mass/Vol]3.8 g/dLNormal 3.2-5.3PTriHealth Bethesda Butler HospitalComment on above:Performed By: #### 2639-3, 89926-6, 2157-04, CBCA, PINR, CMP ####[facility] ([id number])[address] [place] [address] 40489XDI [Catalytic activity/Vol]110 U/EYbxkmw54-927VxaDcjyytWhite Rock Medical CenterComment on above:Performed By: #### 2639-3, 43944-1, 2157-04, CBCA, PINR, CMP ####[facility] ([id number])[address] [place] [address] 47836BRX [Catalytic activity/Vol]13 U/LNormal0-31PTriHealth Bethesda Butler HospitalComment on above: Performed By: #### 2639-3, 88567-1, 2157-04, CBCA, PINR, CMP ####[facility] ([id number])[address] [place] [address] 80269Cgpub gap [Moles/Vol]11 mmol/LNormal5-15[facility] Allen HospitalComment on above: Performed By: #### 2639-3, 03116-8, 2157-04, CBCA, PINR, CMP ####[facility] ([id number])[address] [place] [address] 35321HFP [Catalytic activity/Vol]24 U/LNormal0-41ProWhite Rock Medical CenterComment on above:Performed By: #### 2639-3, 52884-2, 2157-04, CBCA, PINR, CMP ####[facility] ([id number])[address] [place] [address] 11429Vtdgopdjc [Mass/Vol]0.4 mg/dLNormal0.3-1.2PTriHealth Bethesda Butler HospitalComment on above:Performed By: #### 2639-3, 10898-4, 2157-04, CBCA, PINR, CMP ####[facility] ([id number])[address] [place] [address] 24196Palrpfo [Mass/Vol]9.3 mg/dLNormal8.5-10.5PTriHealth Bethesda Butler HospitalComment on above:Performed By: #### 2639-3, 16764-1, 2157-04, CBCA, PINR, CMP ####[facility] ([id number])[address] [place] [address] 99042Kkpmhcta [Moles/Vol]101 mmol/NLpziqg69-550DplCxkbhbWhite Rock Medical CenterComment on above:Performed By: #### 2639-3, 42594-5, 2157-04, CBCA, PINR, CMP ####[facility] ([id number])[address] [place] [address], [place] [address]WT0 [Moles/Vol]27 mmol/ZBplfnz60-04OfoCegbsv [facility] CenterComment on above:Performed By: #### 2639-3, 67099-5, 2157-04, CBCA, PINR, CMP ####[facility] ([id number])[address] [place] [address] 76419Sbavwaoiip [Mass/Vol]1.25 mg/dLHigh0.40-1.00 [facility] CenterComment on above:Result Comment: METHOD TRACEABLE TO IDMS STANDARDPerformed By: #### 2639-3, 53621-8, 2157-04, CBCA, PINR, CMP ####[facility] ([id number])[address] [place] [address] 38800JNP/1.73 sq M.predicted among non-blacks MDRD (S/P/Bld) [Vol rate/Area]44 mL/min/{1.73_m2}Low>59ProWhite Rock Medical CenterComment on above:Result Comment: Reported eGFR is based on theCKD-EPI 2020 equation that doesnot use a race coefficient.Performed By: #### 2639-3, 77981-9, 2157-04, CBCA, PINR, CMP ####[facility] ([id number])[address] [place] [address], [place] [address]Ayrlxzr [Mass/Vol]48 mg/dLCritically rch06-63OmdLeuoefWhite Rock Medical CenterComment on above:Performed By: #### 2639-3, 83604-3, 2157-04, CBCA, PINR, CMP ####[facility] ([id number])[address] [place] [address] 61682Odpuppogr [Moles/Vol]3.9 mmol/LNormal3.5-5.0 [facility] HospitalComment on above:Performed By: #### 2639-3, 92213-7, 2157-04, CBCA, PINR, CMP ####[facility] ([id number])[address] [place] [address] 78302Wscubsp [Mass/Vol]7.9 g/dLNormal6.0-8.0 [facility] HospitalComment on above:Performed By: #### 2639-3, 59229-5, 2157-04, CBCA, PINR, CMP ####[facility] ([id number])[address] [place] [address] 73245Tytvex [Moles/Vol]139 mmol/IUioqwm178-900 [facility] HospitalComment on above:Performed By: #### 2639-3, 51951-3, 2157-04, CBCA, PINR, CMP ####[facility] ([id number])[address] [place] [address] 83494Umuq nitrogen [Mass/Vol]18 mg/dLNormal5-27 [facility] HospitalComment on above:Performed By: #### 2639-3, 76898-5, 2157-04, CBCA, PINR, CMP ####[facility] ([id number])[address] [place] [address], [place] [address]UU BRAIN WO CONTon 35-24-1667RI BRAIN WO CONTNormalProWhite Rock Medical CenterCT CERVICAL SPINE WO CONTon 91-20-4592OT CERVICAL SPINE WO CONTNormalMercy Health Allen HospitalGlucose Glucometer (BldC) [Mass/Vol]on 19-68-5420Ehfwrpw [Mass/Vol]231 mg/lPQnqx07-39UqnLzsgerMercy Health Allen HospitalGlucose [Mass/Vol]196 mg/tRAjzu29-86QuxVyykmfWhite Rock Medical CenterGlucose [Mass/Vol]66 mg/mYUlbtwn10-26TdhAaphiiWhite Rock Medical CenterGlucose [Mass/Vol]72 mg/wLKhehvr77-44YcfLrcxjtWhite Rock Medical CenterGlucose [Mass/Vol]86 mg/pJQtbprm47-68 [facility] CenterGlucose [Mass/Vol]49 mg/dLCritically apb78-69ZcjNemigaMercy Health Allen HospitalMyoglobin [Mass/Vol]on 00-50-5645YXQMP QCZWRYIEP43.6 ng/mLHigh 14.3-65.8ProWhite Rock Medical CenterComment on above:Performed By: #### 2639-3, 91418-2, 2157-04, CBCA, PINR, CMP ####[facility] ([id number])[address] [place] [address] 22392KBFDLBH AND INRon 55-13-3274QQZ Coag (PPP) [Relative time]1.0 {INR}Normal0.8-1.1PTriHealth [facility]hes[facility] Comment on above:Performed By: #### 2639-3, 87133-8, 7, CBCA, PINR, CMP ####[facility] ([id number])[address] [place] [address] 04979EM Coag (PPP) [Time]12.1 sNormal9.8-13.2PTriHealth Bethesda Butler HospitalComment on above:Result Comment: NEW REFERENCE RANGEPerformed By: #### 2639-3, 75220-4, 7, CBCA, PINR, CMP ####[facility] ([id number])[address] [place] [address] 97724Boehwsdi I.cardiac High sensitivity method [Mass/Vol]on HOUR TROP I, HIGH GHNZNCKYEER14 ng/LNormal<16ProWhite Rock Medical CenterComment on above:Performed By: #### 84497-1 ####[facility] ([id number])[address] [place] [address], [facility] [place], [place] [address]VNONKBNI I, HIGH DOGVKBUGSEX21 ng/LNormal<16 [facility] CenterComment on above:Performed By: #### 2639-3, 50777-9, 2157-6, CBCA, PINR, CMP ####[facility] ([id number])[address] [place] [address], [facility] [place], [place] [address]BUU MACROSCOPIC NURon 09-47-1411OKJECZLFH NURNegativeNormalNEGMercy Health Allen HospitalComment on above:Performed By: #### NUM ####[facility] ([id number])[address] [place] [address], [facility], [place] [address]GKHST/HGB NURTraceAbnormidNEGMercy Health Allen Hospital Comment on above:Performed By: #### NUM ####[facility] ([id number])[address] [place] [address], [facility], [place] [address]PKSNDPV KYO080 mg/dLAbnormalNEGMercy Health Allen HospitalComment on above:Performed By: #### NUM ####[facility] ([id number])[address] [place] [address], [place] [address]TZWZYMU NURNegativeNormalNEGMercy Health Allen Hospital Comment on above:Performed By: #### NUM ####[facility] ([id number])[address] [place] [address], [facility], [place] [address]CYDYXZFIL ESTERASE NURSmallAbnormalNEGMercy Health Allen HospitalComment on above:Performed By: #### NUM ####[facility] ([id number])[address] [place] [address], [facility], [place] [address]YUFLKOP NURNegativeNormalNEGProWhite Rock Medical CenterComment on above:Performed By: #### NUM ####[facility] ([id number])[address] [place] [address], [place] [address]QK NUR6.0Normal 5.0-8.5PTriHealth Bethesda Butler HospitalComment on above:Performed By: #### NUM ####[facility] ([id number])[address] [place] [address], [place] [address]EBMPOTI NUR30 mg/dLAbnormalNEGProWhite Rock Medical CenterComment on above:Performed By: #### NUM ####[facility] ([id number])[address] [place] [address], [place] [address]HJERFXJH GRAVITY NUR1.025Normal 1.003-1.035ProWhite Rock Medical CenterComment on above:Performed By: #### NUM ####[facility] ([id number])[address] [place] [address]TLRJKEPHTIQV NUR0.2 eu/dLNormal<1.1PTriHealth [facility] Comment on above:Performed By: #### NUM ####[facility] ([id number])[address] [place] [address], [place] [address]VBZ AND AUTO DIFF on 34-14-0042NUPVMDGQ BASOPHIL0.0 X10E9/LNormal0.0-0.2PTriHealth [facility] Comment on above:Performed By: #### CMP, CBCA, HA1C, 06002-9 ####[facility] ([id number])[address] [facility], [place] [address]IVBFVKAO NEUTROPHIL3.3 X10E9/LNormal1.5-6.6Mer[facility] HospitalComment on above: Performed By: #### CMP, CBCA, HA1C, 68402-6 ####[facility] ([id number])[address] [facility]TO[facility], [place] [address]Udllwogkn/100 WBC (Bld)0.7 %NormalProWhite Rock Medical CenterComment on above:Performed By: #### CMP, CBCA, HA1C, 54243-6 ####[facility] ([id number])[address] [address], [place] [address]Ocwopdfxuay (Bld) [#/Vol]0.2 10*3/uLNormal0.0-0.4Mer[facility] HospitalComment on above:Performed By: #### RUBEN CBCDanielle, HADedrick, 38590-7 ####[facility] ([id number])[address] [address], [place] [address]Pybtxqqxguv/100 WBC (Bld)3.9 %NormalProWhite Rock Medical CenterComment on above:Performed By: #### RUBEN CBCDanielle, HADedrick, 32548-9 ####[facility] ([id number])[address] [address]Nqtvcojjtko distribution width (RBC) [Ratio]15.7 %High11.5-15.0[facility] Comment on above:Performed By: #### RUBEN CBCDanielle, WALLY, 29273-5 ####[facility] ([id number])[address] [address]Fbpwrwscec (Bld) [Volume fraction]32.2 %Mcl89-19YcqFrwvtqWhite Rock Medical CenterComment on above: Performed By: #### RUBEN CBCDanielle, HADedrick, 31597-8 ####[facility] ([id number])[address] [address]Psbvoakdnd (Bld) [Mass/Vol] 10.4 g/dLLow11.7-15.5PTriHealth Bethesda Butler HospitalComment on above:Performed By: #### RUBEN, CBCA, HA1C, 50296-9 ####[facility] ([id number])[address] [address] [place] [address]Mgwewmsjoog (Bld) [#/Vol]1.5 10*3/uLNormal 1.0-3.5PTriHealth Bethesda Butler HospitalComment on above:Performed By: #### CMP, CBCA, HA1C, 60213-4 ####[facility] ([id number])[address], [address] [place] [address] 865[address]Onmbqmguebm/100 WBC (Bld)26.6 %NormalProWhite Rock Medical CenterComment on above:Performed By: #### CMP, CBCA, HA1C, 79471-2 ####[facility] ([id number])[address], [address] [place] [address] 97210GDI (RBC) [Entitic mass]27.9 nnXpkfkb30-93CrgVeitziMercy Health Allen HospitalComment on above:Performed By: #### CMP, CBCA, HA1C, 80157-1 ####[facility] ([id number])[address], [address] [place] [address] 664[address]BBZK (RBC) [Mass/Vol] 32.2 g/xBKleqnx63-89SveDauvawMercy Health Allen HospitalComment on above:Performed By: #### CMP, CBCA, HA1C, 83135-4 ####[facility] ([id number])[address] [address] [place] [address] 725[address]UFL (RBC) [Entitic vol]86 gANsuoke94-932 [facility] HospitalComment on above:Performed By: #### CMP, CBCA, HA1C, 34063-3 ####[facility] ([id number])[address] [address] [place] [address] 12596Encxaazft (Bld) [#/Vol]0.5 10*3/uLNormal0-0.9Mer[facility] HospitalComment on above:Performed By: #### CMP, CBCA, HA1C, 54077-8 ####[facility] ([id number])[address], [address] [place] [address] 623[address]Wlmzwkkwy/100 WBC (Bld)9.4 %NormalProWhite Rock Medical CenterComment on above:Performed By: #### CMP, CBCA, HA1C, 21837-4 ####[facility] ([id number])[address], [address] [place] [address] 84439Aggfewdxtlg/100 WBC (Bld)59.4 %NormalProWhite Rock Medical CenterComment on above:Performed By: #### CMP, CBCA, HA1C, 76746-8 ####[facility] ([id number])[address], [address] [place] [address] 68939Xqdkjuso mean volume (Bld) [Entitic vol]8.9 fLNormal7-12[facility] CenterComment on above:Performed By: #### CMP, CBCA, HA1C, 69704-1 ####[facility] ([id number])[address], [address] [place] [address] 01425Mhbjvouma (Bld) [#/Vol]266 10*3/bQSpkeyu354-[address] HelenaComment on above:Performed By: #### CMP, CBCA, HA1C, 71979-1 ####[facility] ([id number])[address], [address] [place] [address] 04834EIH COUNT3.72 X10E12/LLow3.80-5.20[facility] Comment on above:Performed By: #### CMP, CBCA, HA1C, 55382-5 ####[facility] ([id number])[address], [address] [place] [address] 42064CRF (Bld) [#/Vol]5.6 10*3/uLNormal4.0-11.0Mer[facility] HospitalComment on above: Performed By: #### CMP, CBCA, HA1C, 59809-6 ####[facility] ([id number])[address], [address], [place] [address]MWBTOWYSYHVFC METABOLIC PANELon 78-66-5890Jfscvib [Mass/Vol]3.7 g/dLNormal3.2-5.3PUCHealth [facility] Hospital HospitalComment on above:Performed By: #### CMP, CBCA, HA1C, 02452-6 ####[facility] ([id number])[address], [address], [place] [address]HOF [Catalytic activity/Vol]84 U/IWguqek36-947RekPtpvqnWhite Rock Medical CenterComment on above:Performed By: #### CMP, CBCA, HA1C, 64515-8 ####[facility] ([id number])[address], [address], [place] [address]BZZ [Catalytic activity/Vol]11 U/LNormal0-31PTriHealth Bethesda Butler HospitalComment on above: Performed By: #### CMP, CBCA, HA1C, 00244-7 ####[facility] ([id number])[address], [address], [place] [address]Jngeg gap [Moles/Vol]7 mmol/LNormal5-15[facility] HospitalComment on above:Performed By: #### CMP, CBCA, HA1C, 00514-9 ####[facility] ([id number])[address], [address], [place] [address]LGB [Catalytic activity/Vol]25 U/LNormal0-41 [facility] HospitalComment on above:Performed By: #### CMP, CBCA, HA1C, 55406-4 ####[facility] ([id number])[address], [address], [place] [address]Bborrcbzi [Mass/Vol]0.3 mg/dLNormal0.3-1.2PTriHealth Bethesda Butler HospitalComment on above:Performed By: #### CMP, CBCA, HA1C, 93817-2 ####[facility] ([id number])[address] [address], [place] [address] Calcium [Mass/Vol]9.0 mg/dLNormal8.5-10.5PTriHealth Bethesda Butler HospitalComment on above:Performed By: #### RUBEN, CBCA, HA1C, 89133-1 ####[facility] ([id number])[address] [address], [place] [address]Kfntttuc [Moles/Vol]103 mmol/ONxzmwb97-634OxhDhkraxWhite Rock Medical CenterComment on above:Performed By: #### RUBEN, CBCA, HA1C, 30673-9 ####[facility] ([id number])[address] [address], [place] [address]RD7 [Moles/Vol]28 mmol/NEdfgff34-44UqjNqnkfdTriHealth Bethesda Butler HospitalComment on above:Performed By: #### RUBEN, CBCA, HA1C, 63288-7 ####[facility] ([id number])[address] [address], [place] [address]Vydzpxnhjb [Mass/Vol]1.40 mg/dLHigh0.40-1.00[facility] Comment on above:Result Comment: METHOD TRACEABLE TO IDMS STANDARDPerformed By: #### RUBEN, CBCA, HA1C, 09435-7 ####[facility] ([id number])[address] [address]JXH/1.73 sq M.predicted among non-blacks MDRD (S/P/Bld) [Vol rate/Area]39 mL/min/{1.73_m2}Low>59ProWhite Rock Medical CenterComment on above:Result Comment: Reported eGFR is based on theCKD-EPI 2020 equation that doesnot use a race coefficient.Performed By: #### CMP, CBCA, HA1C, 86003-7 ####[facility] ([id number])[address], [address] [place] [address]Dfazpfc [Mass/Vol]201 mg/zLHwok60-83SyxBvwvodWhite Rock Medical CenterComment on above:Performed By: #### CARMEN MIRANDA HA1C, 45989-8 ####[facility] ([id number])[address], [address], [place] [address] Potassium [Moles/Vol]5.5 mmol/LHigh3.5-5.0Mer[facility] HospitalComment on above:Performed By: #### CARMEN MIRANDA HA1C, 23694-4 ####[facility] ([id number])[address], [address] [place] [address]Ilwgudq [Mass/Vol]6.9 g/dLNormal6.0-8.0ProWhite Rock Medical CenterComment on above:Performed By: #### CARMEN MIRANDA HA1C, 78981-8 ####[facility] ([id number])[address], [address], [place] [address]Hslexm [Moles/Vol]138 mmol/QQdjxny822-[address] HelenaComment on above:Performed By: #### CARMEN MIRANDA HA1C, 95615-1 ####[facility] ([id number])[address], [address] [place] [address]Lnqi nitrogen [Mass/Vol]18 mg/dLNormal5-27ProWhite Rock Medical CenterComment on above:Performed By: #### RUBEN CBCDanielle HADedrick, 73949-4 ####[facility] ([id number])[address], [address], [place] [address]WCC A1C (GLYCO-HGB)on 11-03-2443Xebsaie [Mass/Vol]217 mg/dLNormalProWhite Rock Medical CenterComment on above:Performed By: #### CARMEN MIRANDA, HADedrick, 22428-2 ####[facility] ([id number])[address] [address]KhT1a (Bld) [Mass fraction]9.2 %High4.4-5.6Mer[facility] HospitalComment on above:Result Comment: NOTE ADA Guidelines Result HgbA1c Normal : less than 5.7 % Prediabetes : 5.7 % to 6.4 % Diabetes : > 6.4 %Use with caution in patients with abnormal hemoglobin variants asthe half-life of red blood cells and in vivo glycation rates areaffected.Performed By: #### RUBEN, CBCA, HA1C, 40189-7 ####[facility] ([id number])[address] [address]Wvjen 1996 panelon 59-62-7215Tvwdynmlcpr [Mass/Vol]133 mg/eBAce684-870GbkEhjhaiMercy Health Allen Hospital Comment on above:Performed By: #### RUBEN, CBCA, HA1C, 71791-4 ####[facility] ([id number])[address] [address]Quvjvuaeilz in HDL [Mass/Vol]47 mg/dLNormal>39ProWhite Rock Medical CenterComment on above: Result Comment: HDL <40 mg/dL - High RiskHDL > or = 40mg/dL- DesirableHDL >60 mg/dL - Negative Risk Performed By: #### RUBEN, CBCA, HA1C, 02883-6 ####[facility] ([id number])[address] [address]Dgozajperqv in LDL [Mass/Vol]70 mg/dLNormal <130ProWhite Rock Medical CenterComment on above:Result Comment: LDL <100 mg/dL - DesirableLDL >160 mg/dL - High Risk Performed By: #### CARMEN MIRANDA, WALLY, 54833-2 ####[facility] ([id number])[address], [address] [place] [address]Pebehpeynzl in VLDL [Mass/Vol]16 mg/dLNormal0-30ProWhite Rock Medical CenterComment on above:Performed By: #### CARMEN MIRANDA, HADedrick, 54655-2 ####[facility] ([id number])[address], [address] [place] [address]WBYNGTEBKAE:HDL2.8Normal 1.0-5.0Mer[facility] HospitalComment on above:Performed By: #### CARMEN MIRANDA, WALLY, 62866-9 ####[facility] ([id number])[address], [address] [place] [address]Qfcpvluyebmo [Mass/Vol]82 mg/kDWdgslp71-350EyfDodmud Fremont HospitalComment on above:Performed By: #### CARMEN MIRANDA, HADedrick, 65941-8 ####[facility] ([id number])[address], [address] [place] [address]EUN AND AUTO DIFFon 91-97-0728UBYSASLY BASOPHIL0.0 X10E9/LNormal0.0-0.2ProMedAlameda HospitalComment on above:Performed By: #### RUBEN, 71045-1, CBCA, 85805-6, 09306-5, PINR ####[facility] ([id number])[address] [place] [address]UBOANKBV NEUTROPHIL5.1 X10E9/LNormal1.5-6.6ProWhite Rock Medical CenterComment on above:Performed By: #### CMP, 32244-7, CBCA, 63669- 9, 08124-4, PINR ####[facility] ([id number])[address] [place] [address] 499[address]Kisocpmfw/100 WBC (Bld)0.4 %NormalMercy Health Allen HospitalComment on above:Performed By: #### CMP, 93701-5, CBCA, 85977-3, 09594-4, PINR ####[facility] ([id number])[address] [place] [address]Vtejijdkoyu (Bld) [#/Vol]0.1 10*3/uLNormal0.0-0.4 [facility] HospitalComment on above:Performed By: #### CMP, 80544-5, CBCA, 87658-0, 53339-5, PINR ####[facility] ([id number])[address] [place] [address] 09838Njfolcenrjw/100 WBC (Bld)1.7 %Normal [facility] HospitalComment on above:Performed By: #### CMP, 82737-6, CBCA, 63220-3, 17359-2, PINR ####[facility] ([id number])[address] [place] [address] 55[address]Cpommclpyyg distribution width (RBC) [Ratio]15.9 %High11.5-15.0Mer[facility] HospitalComment on above:Performed By: #### CMP, 72045-5, CBCA, 44698-4, 59807-2, PINR ####[facility] ([id number])[address] [place] [address] Hematocrit (Bld) [Volume fraction]34.2 %Kxn26-40UvoCleklbMercy Health Allen Hospital Comment on above:Performed By: #### CMP, 84955-5, CBCA, 42914-1, 42359-8, PINR ####[facility] ([id number])[address] [place] [address] (Bld) [Mass/Vol]11.1 g/dLLow11.7-15.5PTriHealth Bethesda Butler HospitalComment on above:Performed By: #### CMP, 84578-9, CBCA, 65531-6, 28452-0, PINR ####[facility] ([id number])[address] [place] [address]Kwkcpfqcmjy (Bld) [#/Vol]1.6 10*3/uLNormal1.0-3.5 [facility] HospitalComment on above:Performed By: #### CMP, 66037-6, CBCA, 07434-9, 86572-8, PINR ####[facility] ([id number])[address] [place] [address] 78[address]Xamjljpydzr/100 WBC (Bld)20.5 %Normal [facility] HospitalComment on above:Performed By: #### CMP, 98857-9, CBCA, 19423-4, 85247-2, PINR ####[facility] ([id number])[address] [place] [address] 67394RXM (RBC) [Entitic mass]27.5 pgNormal 27-34ProWhite Rock Medical CenterComment on above:Performed By: #### CMP, 66964-6, CBCA, 01037-1, 45604-9, PINR ####[facility] ([id number])[address] [place] [address] 98126UUUX (RBC) [Mass/Vol]32.6 g/dLNormal 32-36ProWhite Rock Medical CenterComment on above:Performed By: #### CMP, 07249-7, CBCA, 59576-2, 34425-7, PINR ####[facility] ([id number])[address] [place] [address] 33621TTF (RBC) [Entitic vol]85 fL Rcgbyy72-818VnyHeirluMercy Health Allen HospitalComment on above:Performed By: #### CMP, 46643-8, CBCA, 19249-0, 84715-4, PINR ####[facility] ([id number])[address] [place] [address] 81920Xnxdvxpno (Bld) [#/Vol] 0.9 10*3/uLNormal0-0.9[facility] HospitalComment on above:Performed By: #### CMP, 44803-3, CBCA, 64432-9, 80925-3, PINR ####[facility] ([id number])[address] [place] [address] 54302Zcovneyhu/100 WBC (Bld)11.4 %NormalProWhite Rock Medical CenterComment on above:Performed By: #### CMP, 82202-5, CBCA, 10225-4, 92688-1, PINR ####[facility] ([id number])[address] [place] [address] 32469Fhffjkatlpz/100 WBC (Bld)66.0 %NormalProWhite Rock Medical CenterComment on above:Performed By: #### CMP, 55536-0, CBCA, 60361-2, 66707-8, PINR ####[facility] ([id number])[address] [place] [address] 64630Ywgnyzzt mean volume (Bld) [Entitic vol]8.0 fLNormal7-12Pro[facility] Surgical CenterComment on above:Performed By: #### CMP, 44309-9, CBCA, 67606-6, 03869-9, PINR ####[facility] ([id number])[address] [place] [address] 74313Itoahjjce (Bld) [#/Vol]342 10*3/yRYigzbh968-120KcpVvlecmMercy Health Allen Hospital Comment on above:Performed By: #### CMP, 24630-7, CBCA, 61979-1, 20166-1, PINR ####[facility] ([id number])[address] [place] [address] 64837BKK COUNT4.04 X10E12/LNormal3.80-5.20ProWhite Rock Medical CenterComment on above:Performed By: #### CMP, 62608-9, CBCA, 58187-3, 32702- 9, PINR ####[facility] ([id number])[address] [place] [address] 78532HLR (Bld) [#/Vol]7.7 10*3/uLNormal4.0-11.0ProWhite Rock Medical CenterComment on above:Performed By: #### CMP, 68100-9, CBCA, 91010-3, 33097-4, PINR ####[facility] ([id number])[address] [place] [address] 03615SHJKBXSRFLBJY METABOLIC PANELon 00-55-1113Pvmtnlg [Mass/Vol]4.1 g/dLNormal3.2-5.3PTriHealth Bethesda Butler HospitalComment on above: Performed By: #### CMP, 79817-0, CBCA, 14329-2, 06603-4, PINR ####[facility] ([id number])[address] [place] [address] 60162FSB [Catalytic activity/Vol]108 U/TDslsci20-435GvgQmogmwMercy Health Allen Hospital Comment on above:Performed By: #### CMP, 15697-4, CBCA, 05113-3, 85156-8, PINR ####[facility] ([id number])[address] [place] [address] 11439RGE [Catalytic activity/Vol]18 U/LNormal0-31PTriHealth Bethesda Butler HospitalComment on above:Performed By: #### CMP, 73078-3, CBCA, 85532-2, 72845-2, PINR ####[facility] ([id number])[address] [place] [address], [place] [address]Aghli gap [Moles/Vol]11 mmol/LNormal5-15ProWhite Rock Medical CenterComment on above:Performed By: #### CMP, 99225-0, CBCA, 93120-1, 69011-2, PINR ####[facility] ([id number])[address] [place] [address], [place] [address]RLM [Catalytic activity/Vol]24 U/LNormal0-41 ProMedicBaldwin Park HospitalComment on above:Performed By: #### CMP, 70248-3, CBCA, 08486-4, 57823-6, PINR ####[facility] ([id number])[address] [place] [address], [place] [address]Cxoaeosuz [Mass/Vol]0.6 mg/dLNormal 0.3-1.2PTriHealth Bethesda Butler HospitalComment on above:Performed By: #### CMP, 99753- 4, CBCA, 29778-1, 64229-9, PINR ####[facility] ([id number])[address] [place] [address], [place] [address]Msptnap [Mass/Vol]9.2 mg/dLNormal 8.5-10.5PTriHealth Bethesda Butler HospitalComment on above:Performed By: #### CMP, 10846-1, CBCA, 64031-5, 72870-8, PINR ####[facility] ([id number])[address] [place] [address], [place] [address]Jbxtzgnl [Moles/Vol]99 mmol/RTjwjmf31-979TynEuisbiWhite Rock Medical CenterComment on above:Performed By: #### CMP, 92653-8, CBCA, 06808-1, 98490-5, PINR ####[facility] ([id number])[address] [place] [address], [place] [address]TQ1 [Moles/Vol]26 mmol/FAkvcln53-41GqjGmpxzq [facility]remont HospitalComment on above:Performed By: #### RUBEN, 98258-0, CBCA, 50431-1, 56090-5, PINR ####[facility] ([id number])[address] [place] [address] 240[address]Uvagypledp [Mass/Vol]1.67 mg/dLHigh0.40-1.00ProWhite Rock Medical CenterComment on above: Result Comment: METHOD TRACEABLE TO IDMS STANDARDPerformed By: #### RUBEN, 70681- 4, CARMEN, 77860-6, 03827-3, PINR ####[facility] ([id number])[address] [place] [address], [place] [address]QFN/1.73 sq M.predicted among non-blacks MDRD (S/P/Bld) [Vol rate/Area]31 mL/min/{1.73_m2}Low>59ProWhite Rock Medical CenterComment on above:Result Comment: Reported eGFR is based on theCKD-EPI 2020 equation that doesnot use a race coefficient.Performed By: #### RUBEN, 41458-9, CBCA, 48440-4, 31928-1, PINR ####[facility] ([id number])[address] [place] [address]59[address]Ufmeflb [Mass/Vol]239 mg/aKLfom31-63PvrCgjuwkWhite Rock Medical CenterComment on above:Performed By: #### RUBEN, 55991-7, CBCA, 02203-9, 25689-8, PINR ####[facility] ([id number])[address] [place] [address], [place] [address] Potassium [Moles/Vol]4.2 mmol/LNormal3.5-5.0ProWhite Rock Medical CenterComment on above:Performed By: #### RUBEN, 80758-0, CBCA, 02807-2, 05253-7, PINR ####[facility] ([id number])[address] [place] [address] 562[address]Hvfpsso [Mass/Vol]8.1 g/dLHigh6.0-8.0ProWhite Rock Medical CenterComment on above:Performed By: #### CMP, 14566-4, CBCA, 27443-3, 88675-5, PINR ####[facility] ([id number])[address] [place] [address] 28915Olgukd [Moles/Vol]136 mmol/WNevjyz480-706AdlPgfsdr [facility]remont HospitalComment on above:Performed By: #### RUBEN, 33204-7, CBCA, , 77359-1, PINR ####[facility] ([id number])[address] [place] [address] 404[address]Hndc nitrogen [Mass/Vol]24 mg/dLNormal5-27ProWhite Rock Medical CenterComment on above:Performed By: #### RUBEN, 62020-3, CBCA, 66913-1, 42440-2, PINR ####[facility] ([id number])[address] [place] [address] 887[address]Wtmgrvh (P obed) [Moles/Vol]on 78-53-8713QXJVKYT W/REFLEX1.5 mmol/LNormal0.4-2.0ProWhite Rock Medical CenterComment on above:Result Comment: Result did not trigger repeat Lactate,re-order if needed.Performed By: #### 18352-2 ####[facility] ([id number])[address] [place] [address]HOQCWOBCOlx 75-99-5936Ddoyfohbi [Mass/Vol]1.7 mg/dL Low1.8-2.6ProWhite Rock Medical CenterComment on above:Performed By: #### CMP, 79707-7, CBCA, 13464-3, 17597-9, PINR ####[facility] ([id number])[address] [place] [address] 04[address]Pacgzluenai peptide B [Mass/Vol]on 71-28-1695Rsunijjdbrv peptide B (Bld) [Mass/Vol]73 pg/mLNormal <100.0ProWhite Rock Medical CenterComment on above:Performed By: #### CMP, 27594- 4, CBCA, 82031-3, 45783-8, PINR ####[facility] ([id number])[address] [place] [address] 41716RNDSDZO AND INRon 43-89-8944PII Coag (PPP) [Relative time]1.2 {INR}High0.8-1.1PTriHealth Bethesda Butler HospitalComment on above:Performed By: #### CMP, 93218-0, CBCA, 92172-9, 28040-0, PINR ####[facility] ([id number])[address] [place] [address] 64214EJ Coag (PPP) [Time]13.4 sHigh9.8-13.2PTriHealth Bethesda Butler HospitalComment on above:Result Comment: NEW REFERENCE RANGEPerformed By: #### CMP, 29783-3, CBCA, 71519-1, 67086-7, PINR ####[facility] ([id number])[address] [place] [address] 205[address]IHYUK CULTUREon 14-82-3331Ywzmqhxs identified Cx Nom (U)CULTURE RESULTS <10,000 ORGANISMS/ML NORMAL URO GENITAL FLORANormalMercy Health Allen Hospital Comment on above:Performed By: #### 630-4 ####[facility] ([id number])[address] [place] [address], [address]TOSELECT [facility], [place] [address]HGW MACROSCOPIC NURon 70-43-8613ZTLQILEZF NURSmallAbnormalNEGProWhite Rock Medical CenterComment on above:Performed By: #### NUM ####[facility] ([id number])[address] [place], [place] [address], [place] [address]AKTAY/HGB NURNegativeNormalNEG [facility] CenterComment on above:Performed By: #### NUM ####[facility] ([id number])[address] [place] [address], [facility], [place] [address]ZMGASCK NURNegativeNormalNEGProWhite Rock Medical CenterComment on above: Performed By: #### NUM ####[facility] ([id number])[address] [place] [address], [facility], [place] [address]XDYXOUW NURNegativeNormalNEGProOur Lady Of Mercy Hospitalca [facility] CenterComment on above:Performed By: #### NUM ####[facility] ([id number])[address] [place] [address], [place] [address] LEUKOCYTE ESTERASE NURNegativeNormalNEGProWhite Rock Medical CenterComment on above:Performed By: #### NUM ####[facility] ([id number])[address] [place] [address], [place] [address]WUQHWBW NURNegativeNormalNEGProWhite Rock Medical CenterComment on above:Performed By: #### NUM ####[facility] ([id number])[address] [place] [address], [facility], [place] [address]KU MARYJO 6.5Ggdbgb3.0-8.5Pro[facility] CenterComment on above:Performed By: #### NUM ####[facility] ([id number])[address] [place] [address], [facility], [place] [address]GQWORZI NUR30 mg/dLAbnormalNEGProWhite Rock Medical Center Comment on above:Performed By: #### NUM ####[facility] ([id number])[address] [place] [address], [facility], [place] [address]NMVTKEBP GRAVITY MARYJO>=1.953Rnyuhr3.003-1.035ProWhite Rock Medical CenterComment on above:Performed By: #### NUM ####[facility] ([id number])[address] [place] [address]URLORFWMLCCJ NUR0.2 eu/dLNormal<1.1PTriHealth Bethesda Butler HospitalComment on above:Performed By: #### NUM ####[facility] ([id number])[address] [place] [address] 34133dQHF Coag (PPP) [Time]on 46-94-5751uLYO Coag (Bld) [Time]33 zCjeuge68-69WobRveuleWhite Rock Medical CenterComment on above:Result Comment: NEW REFERENCE RANGEPerformed By: #### CMP, 99916-2, CBCA, 27217-5, 78508-2, PINR ####[facility] ([id number])[address] [place] [address] 64[address]VCZ AND AUTO DIFF on 05-73-3934CMBWUXUU BASOPHIL0.0 X10E9/LNormal0.0-0.2PTriHealth [facility]hesda [facility] Hospital Comment on above:Performed By: #### RUBEN MORALES, 1987-03 ####[facility] ([id number])[address] [place] [address] 827[address]DVQSIQGY NEUTROPHIL4.5 X10E9/LNormal1.5-6.6Mer[facility] Health Allen HospitalComment on above: Performed By: #### RUBEN MORALES, 1987-03 ####[facility] ([id number])[address] [place] [address] 84474Yqrcuhhvb/100 WBC (Bld)0.6 %NormalProWhite Rock Medical CenterComment on above:Performed By: #### RUBEN MORALES, 1987-03 ####[facility] ([id number])[address] [place] [address] 23762Naiwuriuqan (Bld) [#/Vol]0.1 10*3/uLNormal 0.0-0.4Mer[facility] HospitalComment on above:Performed By: #### RUBEN MORALES, 1987-03 ####[facility] ([id number])[address] [place] [address] 15966Elabonwplwr/100 WBC (Bld)1.8 %NormalMercy Health Allen HospitalComment on above:Performed By: #### [facility], 1987-03 ####[facility] ([id number])[address] [place] [address] 32026Qatcvnfaort distribution width (RBC) [Ratio]15.3 %High11.5-15.0Mer[facility] Health Allen HospitalComment on above:Performed By: #### RUBEN MORALES, 1987-03 ####[facility] ([id number])[address] [place] [address] 09316Vnokgngycq (Bld) [Volume fraction]31.8 %Xnz83-56BlaYvyddaWhite Rock Medical CenterComment on above:Performed By: #### RUBEN MORALES, 1987-03 ####[facility] ([id number])[address] [place] [address] 92445Bnafhpvrdg (Bld) [Mass/Vol]10.6 g/dLLow11.7-15.5PTriHealth Bethesda Butler HospitalComment on above:Performed By: #### RUBEN MORALES, 1987-03 ####[facility] ([id number])[address] [place] [address] 34856Xvvuwmroqcw (Bld) [#/Vol]1.7 10*3/uLNormal1.0-3.5PTriHealth Bethesda Butler HospitalCompromedica charles [facility] on above:Performed By: #### RUBEN MORALES, 1987-03 ####[facility] ([id number])[address] [place] [address] 76892Kbvcjlbmdmt/100 WBC (Bld)24.2 %NormalMercy Health Allen HospitalComment on above:Performed By: #### RUBEN MORALES, 1987-03 ####[facility] ([id number])[address] [place] [address] 40241LHS (RBC) [Entitic mass]28.0 huPccimd15-01QulGkfttiMercy Health Allen HospitalComment on above:Performed By: #### RUBEN MORALES, 1987-03 ####[facility] ([id number])[address] [place] [address] 84800SFEB (RBC) [Mass/Vol]33.3 g/mAQtbnzv89-73CpuEfakmtWhite Rock Medical CenterComment on above: Performed By: #### RUBEN MORALES, 1987-03 ####[facility] ([id number])[address] [place] [address] 93743QOI (RBC) [Entitic vol]84 dXPgejwk21-385HqvEzcpwm [facility] HospitalComment on above: Performed By: #### [facility], 1987-03 ####[facility] ([id number])[address] [place] [address] 66265Tyhbigyts (Bld) [#/Vol]0.7 10*3/uLNormal0-0.9Mer[facility] HospitalComment on above: Performed By: #### RUBEN MORALES, 1987-03 ####[facility] ([id number])[address] [place] [address] 72979Pvxszuodq/100 WBC (Bld)10.6 %NormalProWhite Rock Medical CenterComment on above:Performed By: #### RUBEN MORALES, 1987-03 ####[facility] ([id number])[address] [place] [address] 83869Mwsizrhapdj/100 WBC (Bld)62.8 %Normal [facility] CenterComment on above:Performed By: #### RUBEN MORALES, 1987-03 ####[facility] ([id number])[address] [place] [address] 78925Gblmymtw mean volume (Bld) [Entitic vol]7.9 fLNormal7-12 [facility] HospitalComment on above:Performed By: #### RUBEN MORALES, 1987-03 ####[facility] ([id number])[address] [place] [address] 25142Apejfawoj (Bld) [#/Vol]344 10*3/sRCwiwsx676-019KceSfpbxf [facility] HospitalComment on above:Performed By: #### RUBEN MORALES, 1987-03 ####[facility] ([id number])[address] [place] [address] 84632GME COUNT3.77 X10E12/LLow3.80-5.20[facility] HospitalComment on above:Performed By: #### RUBEN MORALES, 1987-03 ####[facility] ([id number])[address] [place] [address] 74325NXF (Bld) [#/Vol]7.1 10*3/uLNormal4.0-11.0Mer[facility] HospitalComment on above:Performed By: #### RUBEN MORALES, 1987-03 ####[facility] ([id number])[address] [place] [address] 03713EBKVYCVDNEMYI METABOLIC PANELon 33-94-5984Oyqzwxb [Mass/Vol]3.9 g/dLNormal3.2-5.3ProMedAlameda HospitalComment on above:Performed By: #### RUBEN MORALES, 1987-03 ####[facility] ([id number])[address] [place] [address] 25057UJJ [Catalytic activity/Vol]106 U/ZIswdkq66-907VvgYrcgksMercy Health Allen HospitalComment on above:Performed By: #### RUBEN MORALES, 1987-03 ####[facility] ([id number])[address] [place] [address], [facility] [place], [place] [address]FZP [Catalytic activity/Vol]17 U/LNormal0-31PTriHealth Bethesda Butler HospitalComment on above:Performed By: #### RUBEN MORALES, 1987-03 ####[facility] ([id number])[address] [place] [address] [place], [place] [address]Nkxve gap [Moles/Vol]10 mmol/LNormal5-15ProWhite Rock Medical CenterComment on above:Performed By: #### RUBEN MORALES, 1987-03 ####[facility] ([id number])[address] [place] [address], [place] [address]CUV [Catalytic activity/Vol]23 U/LNormal0-41ProWhite Rock Medical Center Comment on above:Performed By: #### RUBEN MORALES, 1987-03 ####[facility] ([id number])[address] [place] [address], [place] [address] Bilirubin [Mass/Vol]0.5 mg/dLNormal0.3-1.2PTriHealth Bethesda Butler HospitalComment on above:Performed By: #### RUBEN MORALES, 1987-03 ####[facility] ([id number])[address] [place] [address], [place] [address]Rzqptsd [Mass/Vol]9.2 mg/dLNormal8.5-10.5PTriHealth Bethesda Butler HospitalComment on above: Performed By: #### RUBEN MORALES, 1987-03 ####[facility] ([id number])[address] [place] [address], [place] [address]Msquywhu [Moles/Vol]101 mmol/GNlzuon81-086HlaRqfvfeWhite Rock Medical CenterComment on above: Performed By: #### RUBEN MORALES, 1987-03 ####[facility] ([id number])[address] [place] [address] [place], [place] [address]NJ4 [Moles/Vol]26 mmol/EPddppf06-67CsxRaymey [facility] CenterComment on above:Performed By: #### RUBEN MORALES, 1987-03 ####[facility] ([id number])[address] [place] [address] 039[address]Batmalhuus [Mass/Vol]1.29 mg/dLHigh0.40-1.00 [facility] CenterComment on above:Result Comment: METHOD TRACEABLE TO IDMS STANDARDPerformed By: #### RUBEN MORALES, 1987-03 ####[facility] ([id number])[address] [place] [address] 95717EZG/1.73 sq M.predicted among non-blacks MDRD (S/P/Bld) [Vol rate/Area]42 mL/min/{1.73_m2} Low>59ProWhite Rock Medical CenterComment on above:Result Comment: Reported eGFR is based on theCKD-EPI 2020 equation that doesnot use a race coefficient. Performed By: #### RUBEN MORALES, 1987-03 ####[facility] ([id number])[address] [place] [address] 42278Amxpbiu [Mass/Vol]212 mg/wTSabj22-87VieRrrwacWhite Rock Medical CenterComment on above:Performed By: #### RUBEN MORALES, 1987-03 ####[facility] ([id number])[address] [place] [address] 23512Oewfluesg [Moles/Vol]4.2 mmol/LNormal 3.5-5.0ProWhite Rock Medical CenterComment on above:Performed By: #### RUBEN MORALES, 1987-03 ####[facility] ([id number])[address] [place] [address] 95738Lgvbhfp [Mass/Vol]7.8 g/dLNormal6.0-8.0ProWhite Rock Medical CenterComment on above:Performed By: #### RUBEN MORALES, 1987-03 ####[facility] ([id number])[address] [place] [address] 73644Pqxsel [Moles/Vol]137 mmol/IPmpzuz568-943RttXhgyxr [facility] HospitalComment on above:Performed By: #### [facility], 1988-03 ####[facility] ([id number])[address] [place] [address] 68191Yiqn nitrogen [Mass/Vol]18 mg/dLNormal5-27ProWhite Rock Medical CenterComment on above:Performed By: #### [facility], 1988-03 ####[facility] ([id number])[address] [place] [address] 67251OMD [Mass/Vol]on 11-17-2024 REACTIVE PROTEIN2.4 mg/dLHigh0.000-0.744PTriHealth Bethesda Butler HospitalComment on above: Performed By: #### [facility], 1988-03 ####[facility] ([id number])[address] [place] [address] 27448Hvscmdi (P obed) [Moles/Vol]on 45-84-0357BMODBOS W/REFLEX1.2 mmol/LNormal0.4-2.0Mer[facility] Allen HospitalComment on above:Result Comment: Result did not trigger repeat Lactate,re-order if needed.Performed By: #### 65999-8 ####[facility] ([id number])[address] [place] [address] 47[address]ICMAQ CULTUREon 44-35-0361Pvwsulvg identified Cx Nom (U)CULTURE RESULTS 50,000 to 100,000 ORGANISMS/mL BEVERLY GLABRATA <10,000 ORGANISMS/mL NORMAL URO GENITAL FLORANormalProWhite Rock Medical CenterComment on above: Performed By: #### 630-4 ####[facility] ([id number])[address] [facility], [address], [place] [address]VTO MACROSCOPIC NURon 02-14-9327GWHFEBWWY NURNegativeNormalNEGProWhite Rock Medical CenterComment on above:Performed By: #### NUM ####[facility] ([id number])[address] [place] [address], [place] [address]GEEFL/HGB NURTraceAbnormalPremier Health [facility] Comment on above:Performed By: #### NUM ####[facility] ([id number])[address] [place] [address] [place] [address]ZNERUIT MARYJO NegativeNormalNEGProWhite Rock Medical CenterComment on above:Performed By: #### NUM ####[facility] ([id number])[address] [place] [address] [place] [address]CFIVESF NURNegativeNormalNEGMercy Health Allen Hospital Comment on above:Performed By: #### NUM ####[facility] ([id number])[address] [place] [address] [place] [address]XGEBCRDGH ESTERASE NURTraceAbnormalNEGMercy Health Allen HospitalComment on above:Performed By: #### NUM ####[facility] ([id number])[address] [place] [address] [place] [address]LRVWKSN NURNegativeNormalNEGProWhite Rock Medical CenterComment on above:Performed By: #### NUM ####[facility] ([id number])[address] [place] [address] [place] [address]UV NUR7.0Normal 5.0-8.5[facility] Surgical CenterComment on above:Performed By: #### NUM ####[facility] ([id number])[address] [place] [address] [place] [address]VQMBUWF XJN001 mg/dLAbnormalNEGProWhite Rock Medical CenterComment on above:Performed By: #### NUM ####[facility] ([id number])[address] [place] [address] 750[address]HGIJXKOT GRAVITY MARYJO>=1.030Normal 1.003-1.035ProWhite Rock Medical CenterComment on above:Performed By: #### NUM ####[facility] ([id number])[address] [place] [address] 159[address]COMCHAVJYBUS NUR0.2 eu/dLNormal<1.1PTriHealth [facility]da [facility] Comment on above:Performed By: #### NUM ####[facility] ([id number])[address] [place] [address], [place] [address]FGL AND AUTO DIFF on 63-29-0637CXYPXELS BASOPHIL0.1 X10E9/LNormal0.0-0.2PTriHealth [facility] Comment on above:Performed By: #### RUBEN, , CBCA ####[facility] ([id number])[address] [place] [address] 49753GUMNFFGY NEUTROPHIL4.4 X10E9/LNormal1.5-6.6Mer[facility] HospitalComment on above: Performed By: #### RBUEN, , CBCA ####[facility] ([id number])[address] [place] [address] 35819Jpamuyana/100 WBC (Bld)0.9 %NormalMercy Health Allen HospitalComment on above:Performed By: #### RUBEN, , CBCA ####[facility] ([id number])[address] [place] [address] 07890Teanmnhjewr (Bld) [#/Vol]0.2 10*3/uLNormal 0.0-0.4Mer[facility] HospitalComment on above:Performed By: #### RUBEN, , CBCA ####[facility] ([id number])[address] [place] [address] 12576Nymwqbhpeek/100 WBC (Bld)3.2 %NormalMercy Health Allen HospitalComment on above:Performed By: #### RUBEN, , CBCA ####[facility] ([id number])[address] [place] [address] 54590Blfehqwsgxl distribution width (RBC) [Ratio]15.6 %High11.5-15.0Mer[facility] Allen HospitalComment on above:Performed By: #### RUBEN, , CBCA ####[facility] ([id number])[address] [place] [address] 22399Plvkffylqj (Bld) [Volume fraction]29.8 %Tzu08-65YpdGgecmkWhite Rock Medical CenterComment on above:Performed By: #### RUBEN, , CBCA ####[facility] ([id number])[address] [place] [address] 17357Ntqrjnzblw (Bld) [Mass/Vol]9.8 g/dLLow11.7-15.5PTriHealth Bethesda Butler HospitalComment on above:Performed By: #### RUBEN, , CBCA ####[facility] ([id number])[address] [place] [address] 78050Lfpvtjkgejt (Bld) [#/Vol]2.1 10*3/uLNormal1.0-3.5PTriHealth Bethesda Butler HospitalCompromedica charles [facility] on above:Performed By: #### RUBEN, , CBCA ####[facility] ([id number])[address] [place] [address] 95304Kstlwkyvdlr/100 WBC (Bld)27.1 %NormalProWhite Rock Medical CenterComment on above:Performed By: #### RUBEN, , CBCA ####[facility] ([id number])[address] [place] [address] 92309ISL (RBC) [Entitic mass]28.0 ciOaaeyq35-77VwfJsnuqlWhite Rock Medical CenterComment on above:Performed By: #### RUBEN, , CBCA ####[facility] ([id number])[address] [place] [address] 86495XLGN (RBC) [Mass/Vol]33.0 g/oQOdunre79-35PwgLzmxcfMercy Health Allen HospitalComment on above: Performed By: #### RUBEN, , CBCA ####[facility] ([id number])[address] [place] [address] 60684EFP (RBC) [Entitic vol]85 cTGufjky86-712XwvEwccezMercy Health Allen HospitalComment on above: Performed By: #### RUBEN, , CBCA ####[facility] ([id number])[address] [place] [address] 83480Wvghkobit (Bld) [#/Vol]0.8 10*3/uLNormal0-0.9Mer[facility] HospitalCompromedica char[facility] on above: Performed By: #### RUBEN, , CBCA ####[facility] ([id number])[address] [place] [address] 51008Vzrspcpbp/100 WBC (Bld)10.5 %NormalMercy Health Allen HospitalCompromedica charles and [facility] hospital on above:Performed By: #### RUBEN, , CBCA ####[facility] ([id number])[address] [place] [address] 23054Ebrlmnfmfee/100 WBC (Bld)58.3 %Normal ProMAdventist Health St. HelenaComment on above:Performed By: #### RUBEN, , CBCA ####[facility] ([id number])[address] [place] [address] 53635Uwlvkyud mean volume (Bld) [Entitic vol]8.6 fLNormal7-12 [facility] HospitalComment on above:Performed By: #### RUBEN, , CBCA ####[facility] ([id number])[address] [place] [address], [place] [address]Okvdfuyam (Bld) [#/Vol]268 10*3/hWQwfkew937-791SbwOjwwon Fremont HospitalComment on above:Performed By: #### RUBEN, , CBCA ####[facility] ([id number])[address] [place] [address] 81171FGR COUNT3.52 X10E12/LLow3.80-5.20ProWhite Rock Medical CenterComment on above:Performed By: #### RUBEN, , CBCA ####[facility] ([id number])[address] [place] [address] 68441RGI (Bld) [#/Vol]7.6 10*3/uLNormal4.0-11.0ProWhite Rock Medical CenterComment on above:Performed By: #### RUBEN, , CBCA ####[facility] ([id number])[address] [place] [address] 15637THWZMIKMWVEHL METABOLIC PANELon 14-17-7085Hzcoihf [Mass/Vol]3.7 g/dLNormal3.2-5.3PTriHealth Bethesda Butler HospitalComment on above:Performed By: #### RUBEN, , CBCA ####[facility] ([id number])[address] [place] [address] 00912SLJ [Catalytic activity/Vol]90 U/LFujoxr45-066IjgFzlscfMercy Health Allen HospitalComment on above:Performed By: #### RUBEN, , CBCA ####[facility] ([id number])[address] [place] [address] [place] [address]HWO [Catalytic activity/Vol]16 U/LNormal0-31ProMedAlameda HospitalComment on above:Performed By: #### RUBEN, , CBCA ####[facility] ([id number])[address] [place] [address], [place] [address]Cvghf gap [Moles/Vol]9 mmol/LNormal5-15ProWhite Rock Medical CenterComment on above:Performed By: #### RUBEN, , CBCA ####[facility] ([id number])[address] [place] [address], [place] [address]ZIK [Catalytic activity/Vol]17 U/LNormal0-41[facility] Comment on above:Performed By: #### RUBEN, , CBCA ####[facility] ([id number])[address] [place] [address], [place] [address] Bilirubin [Mass/Vol]0.5 mg/dLNormal0.3-1.2PTriHealth Bethesda Butler HospitalComment on above:Performed By: #### RUBEN, , CBCA ####[facility] ([id number])[address] [place] [address], [place] [address]Xrxluuk [Mass/Vol]8.9 mg/dLNormal8.5-10.5PTriHealth Bethesda Butler HospitalComment on above: Performed By: #### RUBEN, , CBCA ####[facility] ([id number])[address] [place] [address], [place] [address]Ybqozttw [Moles/Vol]101 mmol/BVmdion92-500DacQsnlfxWhite Rock Medical CenterComment on above: Performed By: #### RUBEN, , CBCA ####[facility] ([id number])[address] [place] [address], [place] [address]LR1 [Moles/Vol]25 mmol/OXvbodf85-18IwkOglukiTriHealth Bethesda Butler HospitalComment on above:Performed By: #### RUBEN, , CBCA ####[facility] ([id number])[address] [place] [address], [place] [address]Podvsrjznf [Mass/Vol]1.38 mg/dLHigh0.40-1.00 [facility] HospitalComment on above:Result Comment: METHOD TRACEABLE TO IDMS STANDARDPerformed By: #### RUBEN, , CBCDanielle ####[facility] ([id number])[address] [place] [address], [place] [address]PVZ/1.73 sq M.predicted among non-blacks MDRD (S/P/Bld) [Vol rate/Area]39 mL/min/{1.73_m2} Low>59ProWhite Rock Medical CenterComment on above:Result Comment: Reported eGFR is based on theCKD-EPI 2020 equation that doesnot use a race coefficient. Performed By: #### RUBEN, , CBCA ####[facility] ([id number])[address] [place] [address] 64423Lrxjomr [Mass/Vol]146 mg/qONfps21-44PmyBxlqvxWhite Rock Medical CenterComment on above:Performed By: #### RUBEN, , CBCA ####[facility] ([id number])[address] [place] [address] 95078Pbckislec [Moles/Vol]4.2 mmol/LNormal 3.5-5.0ProWhite Rock Medical CenterComment on above:Performed By: #### RUBEN, , CBCA ####[facility] ([id number])[address] [place] [address], [place] [address]Xcfztfk [Mass/Vol]7.1 g/dLNormal6.0-8.0Mer[facility] Allen HospitalComment on above:Performed By: #### RUBEN, , CBCA ####[facility] ([id number])[address] [place] [address], [place] [address]Iroucy [Moles/Vol]135 mmol/BEbkype324-588AwzEqmpty Fremont HospitalComment on above:Performed By: #### RUBEN, 43224-7, CBCA ####[facility] ([id number])[address] [place] [address] 56997Vqwc nitrogen [Mass/Vol]22 mg/dLNormal04-10ProWhite Rock Medical CenterComment on above:Performed By: #### RUBEN, 03828-8, CBCDanielle ####[facility] ([id number])[address] [place] [address] 00156Rervqmz Glucometer (BldC) [Mass/Vol]on 31-04-8139Labbbtw [Mass/Vol]337 mg/xZHeve91-49NimAhwyxyMercy Health Allen Hospital MAGNESIUMon 75-10-3186Zsdtihgwy [Mass/Vol]2.4 mg/dLNormal1.8-2.6Mer[facility] Health Allen HospitalComment on above:Performed By: #### RUBEN, , CBCDanielle ####[facility] ([id number])[address] [place] [address] 754[address]GXNOV CULTUREon 75-41-3445Mvyubiew identified Aer cx Nom (Bld)CULTURE RESULTS NO GROWTH 5 DAYSNoCleveland Clinic Mercy HospitalBacteria identified Aer cx Nom (Bld)CULTURE RESULTS NO GROWTH 5 DAYSNoCleveland Clinic Mercy HospitalCBC AND AUTO DIFFon 11-09-2024 ABSOLUTE BASOPHIL0.0 X10E9/LNormal0.0-0.2ProMedAlameda HospitalComment on above:Performed By: #### RUBEN, 48024-9, CBCDanielle, 31529-7, 26347-0 ####[facility] ([id number])[address] [place] [address] 55437JTJEPMGU NEUTROPHIL4.6 X10E9/LNormal1.5-6.6[facility] Comment on above:Performed By: #### RUBEN, 38684-8, CBCA, , 95601-5 ####[facility] ([id number])[address] [place] [address] 91436Dqmjpqxvn/100 WBC (Bld)0.5 %NormalProWhite Rock Medical CenterComment on above:Performed By: #### CMP, 28605-7, CBCA, 68028-5, 46216-6 ####[facility] ([id number])[address] [place] [address] 38576Fooktuaprfm (Bld) [#/Vol]0.1 10*3/uLNormal0.0-0.4Mer[facility] Health Allen HospitalComment on above:Performed By: #### RUBEN, 94386-4, CBCA, , 46745-5 ####[facility] ([id number])[address] [place] [address] 48999Jglvcofwilo/100 WBC (Bld)1.7 %NormalProWhite Rock Medical CenterComment on above:Performed By: #### RUBEN, 98722-6, CBCA, , 23304-5 ####[facility] ([id number])[address] [place] [address] 30165Qxxedqufvyp distribution width (RBC) [Ratio]15.3 %High 11.5-15.0ProWhite Rock Medical CenterComment on above:Performed By: #### RUBEN, 70257-7, CBCA, , 78481-2 ####[facility] ([id number])[address] [place] [address] 64041Zalzwugplm (Bld) [Volume fraction]29.6 %Pjo36-75QttDvwxfiWhite Rock Medical CenterComment on above:Performed By: #### CMP, 52806-9, CBCA, 28127-9, 51817-8 ####[facility] ([id number])[address] [place] [address] 01118Xllmguhquh (Bld) [Mass/Vol]10.1 g/dLLow11.7-15.5PTriHealth Bethesda Butler HospitalComment on above: Performed By: #### CMP, 65734-2, CBCA, 85162-8, 54505-9 ####[facility] ([id number])[address] [place] [address] 20269 Lymphocytes (Bld) [#/Vol]2.1 10*3/uLNormal1.0-3.5PTriHealth Bethesda Butler Hospital Comment on above:Performed By: #### CMP, 37447-8, CBCA, 66571-5, 21326-7 ####[facility] ([id number])[address] [place] [address] 11485Pjzekpjlblv/100 WBC (Bld)27.4 %NormalProWhite Rock Medical CenterComment on above:Performed By: #### CMP, 16080-3, CBCA, , 66324-6 ####[facility] ([id number])[address] [place] [address] 60620LEV (RBC) [Entitic mass]28.9 kxJxeqhd77-93KgnSqdtnlWhite Rock Medical CenterComment on above:Performed By: #### CMP, 14758-1, CBCA, , 79804-6 ####[facility] ([id number])[address] [place] [address] 34453KGSV (RBC) [Mass/Vol]34.3 g/ySFgpiyv15-21WebNbzknsWhite Rock Medical CenterComment on above:Performed By: #### CMP, 12135-0, CBCA, 53818-1, 37496- 7 ####[facility] ([id number])[address] [place] [address] 12849CPK (RBC) [Entitic vol]84 tCQrysmc82-276PzhTmlrip Fremont HospitalComment on above:Performed By: #### CMP, 04193-1, CBCA, 47738-4, 40264-0 ####[facility] ([id number])[address] [place] [address] 62183Etsxmgpzg (Bld) [#/Vol]0.9 10*3/uLNormal0-0.9Mer[facility] Health Allen HospitalComment on above:Performed By: #### CMP, 27902-9, CBCA, 58706-0, 59444-1 ####[facility] ([id number])[address] [place] [address] 20714Smjadkyoj/100 WBC (Bld)11.3 %NormalProWhite Rock Medical CenterComment on above:Performed By: #### CMP, 79010-2, CBCA, 19689-5, 99373-3 ####[facility] ([id number])[address] [place] [address] 76965Avpxvhbzurn/100 WBC (Bld)59.1 %NormalProWhite Rock Medical CenterComment on above:Performed By: #### CMP, 82385-9, CBCA, 48066-2, 00328-1 ####[facility] ([id number])[address] [place] [address] 47302Yumvybxt mean volume (Bld) [Entitic vol]8.2 fLNormal7-12 ProMedicBaldwin Park HospitalComment on above:Performed By: #### CMP, 00989-6, CBCA, 29660-5, 42588-5 ####[facility] ([id number])[address] [place] [address] 32588Fthmzuvtb (Bld) [#/Vol]275 10*3/uLNormal 150-450ProWhite Rock Medical CenterComment on above:Performed By: #### CMP, 43174- 4, CBCA, 16278-7, 90295-3 ####[facility] ([id number])[address] [place] [address] 72254TTC COUNT3.51 X10E12/LLow3.80-5.20 [facility] HospitalComment on above:Performed By: #### RUBEN, 17053-2, CBCA, 61829-7, 96431-5 ####[facility] ([id number])[address] [place] [address] 14844EWX (Bld) [#/Vol]7.8 10*3/uLNormal4.0-11.0 [facility] HospitalComment on above:Performed By: #### RUBEN, 60195-4, CBCA, 32898-3, 67483-2 ####[facility] ([id number])[address] [place] [address] 49711INRZIZDVQYUSE METABOLIC PANELon 11-09-2024 Albumin [Mass/Vol]3.5 g/dLNormal3.2-5.3PTriHealth Bethesda Butler HospitalComment on above:Performed By: #### RUBEN, 03142-7, CBCA, 21306-3, 76417-0 ####[facility] ([id number])[address] [place] [address] 46382TOC [Catalytic activity/Vol]89 U/HCmfvwf86-491MgsFuveneMercy Health Allen Hospital Comment on above:Performed By: #### RUBEN, 17147-5, CBCA, 36061-9, 17765-9 ####[facility] ([id number])[address] [place] [address] 41988UCN [Catalytic activity/Vol]16 U/LNormal0-31PTriHealth Bethesda Butler HospitalComment on above:Performed By: #### RUBEN, 84529-9, CBCA, 65475-3, 46822-8 ####[facility] ([id number])[address] [place] [address] 29354Klqwr gap [Moles/Vol]10 mmol/LNormal5-15ProWhite Rock Medical CenterComment on above:Performed By: #### RUBEN, 49823-4, CBCA, 23093-4, 12039-8 ####[facility] ([id number])[address] [place] [address] 53275CCP [Catalytic activity/Vol]19 U/LNormal0-41ProWhite Rock Medical CenterComment on above:Performed By: #### RUBEN, 52828-8, CBCA, , 31799-1 ####[facility] ([id number])[address] [place] [address] 36201Vklojvyny [Mass/Vol]0.7 mg/dLNormal0.3-1.2PTriHealth Bethesda Butler HospitalComment on above:Performed By: #### RUBEN, 77825-3, CBCA, , 56188-1 ####[facility] ([id number])[address] [place] [address] 24877Pcbhayv [Mass/Vol]9.3 mg/dLNormal8.5-10.5PTriHealth Bethesda Butler HospitalComment on above:Performed By: #### RUBEN, 28361-1, CBCA, , 98413- 7 ####[facility] ([id number])[address] [place] [address], [place] [address]38[address]Jvlwmpcg [Moles/Vol]99 mmol/ESslfww54-820YozTxycekWhite Rock Medical CenterComment on above:Performed By: #### RUBEN, 28788-8, CBCA, , 36631- 7 ####[facility] ([id number])[address] [place] [address], [place] [address]LD9 [Moles/Vol]28 mmol/BCykamq79-75JogGcphcgTriHealth Bethesda Butler HospitalComment on above:Performed By: #### RUBEN, 74574-6, CBCA, , 46500-5 ####[facility] ([id number])[address] [place] [address] 54286Uruozvyqdb [Mass/Vol]1.32 mg/dLHigh0.40-1.00ProWhite Rock Medical CenterComment on above:Result Comment: METHOD TRACEABLE TO IDMS STANDARDPerformed By: #### RUBEN, 16886-5, CARMEN, 50027-9, 23505-9 ####[facility] ([id number])[address] [place] [address] 98038DBM/1.73 sq M.predicted among non-blacks MDRD (S/P/Bld) [Vol rate/Area]41 mL/min/{1.73_m2}Low>59ProWhite Rock Medical CenterComment on above:Result Comment: Reported eGFR is based on theCKD-EPI 2020 equation that doesnot use a race coefficient.Performed By: #### RUBEN, 46026-7, CARMEN, , 48158-4 ####[facility] ([id number])[address] [place] [address] 35441Piuabwh [Mass/Vol]206 mg/vMRyjk47-17BnlCeitlwWhite Rock Medical CenterComment on above:Performed By: #### RUBEN, 99849-1, CARMEN, 36852-0, 11250-9 ####[facility] ([id number])[address] [place] [address] 40341Rywacmkrw [Moles/Vol]3.9 mmol/LNormal3.5-5.0ProWhite Rock Medical Center Comment on above:Performed By: #### RUBEN, 42104-6, CBCA, 43661-5, 95004-5 ####[facility] ([id number])[address] [place] [address] 74671Moiblcs [Mass/Vol]7.3 g/dLNormal6.0-8.0ProWhite Rock Medical CenterComment on above:Performed By: #### RUBEN, 58209-6, CBCA, 48440-0, 11853-3 ####[facility] ([id number])[address] [place] [address] 07782Ugybwm [Moles/Vol]137 mmol/DFmrhzt835-039AbeDncsra Fremont HospitalComment on above:Performed By: #### CMP, 20419-2, CBCA, 51491-3, 90231- 7 ####[facility] ([id number])[address] [place] [address] 85715Lkzs nitrogen [Mass/Vol]17 mg/dLNormal5-27ProWhite Rock Medical CenterComment on above:Performed By: #### CMP, 91493-0, CBCA, , 44508-6 ####[facility] ([id number])[address] [place] [address] 53397JGB High sensitivity method [Mass/Vol]on 43-80-7353HP CRP 3.030 mg/dLHigh0.000-0.744PTriHealth Bethesda Butler HospitalComment on above:Result Comment: Hs-CRP FOR CARDIAC RISK [...] be elevated in other conditions.Performed By: #### 84416-7 ####[facility] ([id number])[address] [facility], [address], [place] [address]NY CRP2.859 mg/dLHigh0.000-0.744PTriHealth Bethesda Butler HospitalComment on above:Result Comment: Hs-CRP FOR CARDIAC RISK [...] be elevated in other conditions.Performed By: #### 30195-8 ####[facility] ([id number])[address] [place] [address] 387[address]#### 66252-8 ####[facility] ([id number])[address] [place] [address] 88336Ywujbay Glucometer (BldC) [Mass/Vol]on 65-18-1939Kdkcamp [Mass/Vol]252 mg/hEPdes28-12OwcJmlnzfWhite Rock Medical CenterGlucose [Mass/Vol]118 mg/lWOnns61-52DyxYurbnaWhite Rock Medical CenterGlucose [Mass/Vol]253 mg/pYZbxq76-71SmrVtorgwWhite Rock Medical CenterLactate (P obed) [Moles/Vol]on 96-09-1694FGOHZNT W/REFLEX1.2 mmol/LNormal0.4-2.0ProWhite Rock Medical CenterComment on above:Result Comment: Result did not trigger repeat Lactate,re-order if needed.Performed By: #### 74404-1 ####[facility] ([id number])[address] [place] [address] 77612 MAGNESIUMon 19-16-6827Aljfvtluw [Mass/Vol]2.6 mg/dLNormal1.8-2.6ProWhite Rock Medical CenterComment on above:Performed By: #### 52687-4 ####[facility] ([id number])[address] [place] [address] 09794 Magnesium [Mass/Vol]1.6 mg/dLLow1.8-2.6ProWhite Rock Medical CenterComment on above:Performed By: #### CMP, 99286-0, CBCA, 27669-9, 59998-3 ####[facility] ([id number])[address] [place] [address] 47341Ozcuhvzzkdu peptide B [Mass/Vol]on 02-13-6755Fjszimsbfax peptide B (Bld) [Mass/Vol]74 pg/mLNormal<100.0ProWhite Rock Medical CenterComment on above: Performed By: #### CMP, 36672-6, CBCA, 42986-9, 19343-7 ####[facility] ([id number])[address] [place] [address] 87302EXTO PATHOGENS/GCDJ-YmY-0hc 98-16-5204Ifmdqklnzzg pathogens DNA and RNA panel SIRI+non-probe (Nph)NormalProWhite Rock Medical CenterComment on above:Performed By: #### 88138-1 ####[facility] ([id number])[address] [place] [address] 84315PHVRRLMERCY HEALTH SPRINGFIELD [facility] ([id number])[address] [place] [address], [address] [place] [address] 35278DSFD/FLU A+B/RSV by NAAT/Molecularon 44-48-4176VEUQ/FLU A+B/RSV by NAAT/MolecularNormalProWhite Rock Medical CenterComment on above:Performed By: #### COVFLR ####[facility] ([id number])[address] [place] [address] 28070Jrifmrpb I.cardiac High sensitivity method [Mass/Vol]on HOUR TROP I, HIGH XBUQFJAKEAB03 ng/LHigh<16ProWhite Rock Medical CenterComment on above:Result Comment: Elevations of hs-Troponin may be due to causesother than myocardial ischemia.Recommend serial hs-Troponin testing be performed.For the initial evaluation and management of chestpain patients, refer to the algorithms linked below.Emergency Patient:[email or web address]:[email or web address]&uh=acaeaPerformed By: #### 27315-3 ####[facility] ([id number])[address] [place] [address] 48933#### 84596-0 ####[facility] ([id number])[address] [facility] [place] [address]BZBJIYVG I, HIGH PQCREQKPCYM34 ng/LHigh<16ProWhite Rock Medical CenterComment on above:Result Comment: Elevations of hs-Troponin may be due to causesother than myocardial ischemia.Recommend serial hs-Troponin testing be performed.For the initial evaluation and management of chestpain pa tients, refer to the algorithms linked below.Emergency Patient:[email or web address]&[email or web address]:[email or web address]&uh=acaeaPerformed By: #### CMP, 63870-3, CBCA, 93763- 9, 08307-8 ####[facility] ([id number])[address] [place] [address] 39681VNCYUSFDBSvt 39-56-1213Kceoiotqk Ql (U)Negative NormalNEGProWhite Rock Medical CenterComment on above:Performed By: #### UA ####[facility] ([id number])[address] [place] [address] 51857RJPPN/HGBNegativeNormalNEGProOur Lady Of Mercy Hospitalca [facility] Surgical CenterComment on above:Performed By: #### UA ####[facility] ([id number])[address] [place] [address] 97523Jvfzj (U)YELLOWNormalYELLOWProOur Lady Of Mercy Hospitalca [facility] CenterComment on above:Performed By: #### UA ####[facility] ([id number])[address] [place] [address], [place] [address]Whmnusi Ql (U)NegativeNormalNEGProWhite Rock Medical CenterComment on above:Performed By: #### UA ####[facility] ([id number])[address] [place] [address], [place] [address]Hrjbztp Ql (U)NegativeNormalNEGProWhite Rock Medical Center Comment on above:Performed By: #### UA ####[facility] ([id number])[address] [place] [address], [place] [address]Gkvutazch esterase Test strip Ql (U)SMALLAbnormalNEGProWhite Rock Medical CenterComment on above:Performed By: #### UA ####[facility] ([id number])[address] [place] [address] [place] 268[address]Dkrwsxw Ql (U)PositiveAbnormalNEG [facility] CenterComment on above:Performed By: #### UA ####[facility] ([id number])[address] [place] [address], [place] [address]aC (U)6.0 [pH]Normal5.0-8.5PTriHealth Bethesda Butler HospitalComment on above: Performed By: #### UA ####[facility] ([id number])[address] [place] [address], [place] [address]Ejibcov Ql (U)TraceAbnormalNEGProWhite Rock Medical CenterComment on above:Performed By: #### UA ####[facility] ([id number])[address] [place] [address], [place] [address] R.B.CELLS1 /hpfNormal0-5ProMedAlameda HospitalComment on above:Performed By: #### UA ####[facility] ([id number])[address] [place] [address] 09355Kmsqinex gravity (U) [Rel density]1.358Ztinlx1.003-1.035 [facility] Surgical CenterComment on above:Performed By: #### UA ####[facility] ([id number])[address] [place] [address] 42913BKMPLCDF EPITHELIUM3 /hpfNormal0-5PTriHealth Bethesda Butler HospitalComment on above:Performed By: #### UA ####[facility] ([id number])[address] [place] [address] 53137IRSRLLBGJHZRCUXovyffWUBVQUrzTtcxsn Fremont HospitalComment on above:Performed By: #### UA ####[facility] ([id number])[address] [place] [address] 89567 Urobilinogen Qn (U)0.2 {Artie'U}/dLNormal<1.1PTriHealth Bethesda Butler HospitalComment on above:Performed By: #### UA ####[facility] ([id number])[address] [place] [address] 49633M.B.CELLS2 /hpfNormal0-5PTriHealth Bethesda Butler HospitalComment on above:Performed By: #### UA ####[facility] ([id number])[address] [place] [address] 63349BPQCL CULTUREon 73-28-2254Rrpzyueo identified Cx Nom (U)SusceptibleProWhite Rock Medical CenterComment on above:Performed By: #### 630-4 ####[facility] ([id number])[address] [place] [address], [address]TOSELECT [facility], [place] [address]YC CHEST 1 VWon [id number] CHEST 1 VWNormalProMedica Highland Springs Surgical CenterCB AND AUTO DIFFon [id number] BASOPHIL0.0 X10E9/LNormal0.0-0.2[facility] Comment on above:Performed By: #### 85653-2, CBCA, CMP ####[facility] ([id number])[address] [place] [address] 05506NAFOWHBT NEUTROPHIL3.1 X10E9/LNormal1.5-6.6ProWhite Rock Medical CenterComment on above: Performed By: #### 25281-8, CBCA, CMP ####[facility] ([id number])[address] [place] [address] 29088Txnofkbsk/100 WBC (Bld)0.8 %NormalProWhite Rock Medical CenterComment on above:Performed By: #### 55134-4, CBCA, CMP ####[facility] ([id number])[address] [place] [address] 69108Tuqekfrgkwo (Bld) [#/Vol]0.4 10*3/uLNormal 0.0-0.4ProWhite Rock Medical CenterComment on above:Performed By: #### 88012-4, CBCA, CMP ####[facility] ([id number])[address] [place] [address] 28158Aqfkulqldwh/100 WBC (Bld)5.9 %NormalProWhite Rock Medical CenterComment on above:Performed By: #### 00810-7, CBCA, CMP ####[facility] ([id number])[address] [place] [address] 68552Swowreeyzaj distribution width (RBC) [Ratio]15.8 %High11.5-15.0Mer[facility] Health Allen HospitalComment on above:Performed By: #### 76441-4, CBCA, CMP ####[facility] ([id number])[address] [place] [address] 73036Zrzpceyoub (Bld) [Volume fraction]30.3 %Cra75-62AsmQrglmkWhite Rock Medical CenterComment on above:Performed By: #### 30344-7, CBCA, CMP ####[facility] ([id number])[address] [place] [address] 69667Qtaymfsvrc (Bld) [Mass/Vol]10.2 g/dLLow11.7-15.5PTriHealth Bethesda Butler HospitalCompromedica [facility] on above:Performed By: #### 76476-2, CBCA, CMP ####[facility] ([id number])[address] [place] [address] 92263Kkvlawwsvuo (Bld) [#/Vol]2.1 10*3/uLNormal1.0-3.5PTriHealth Bethesda Butler HospitalCompromedica char[facility] on above:Performed By: #### 85037-9, CBCA, CMP ####[facility] ([id number])[address] [place] [address] 99820Nxqwjurhtsn/100 WBC (Bld)33.5 %NormalProWhite Rock Medical CenterCompromedica char[facility] on above:Performed By: #### 49712-4, CBCA, CMP ####[facility] ([id number])[address] [place] [address] 05683PJL (RBC) [Entitic mass]28.4 zvJzbwhf25-65NlqCidwpvMercy Health Allen HospitalCompromedica [facility] on above:Performed By: #### 80020-8, CBCA, CMP ####[facility] ([id number])[address] [place] [address] 30987OTIN (RBC) [Mass/Vol]33.8 g/lNTyzqyk05-30NnsMmxoqqWhite Rock Medical CenterCompromedica char[facility] on above: Performed By: #### 59835-2, CBCA, CMP ####[facility] ([id number])[address] [place] [address] 40405CDI (RBC) [Entitic vol]84 lHSimbuz81-350HueRtxzpr Fremont HospitalComment on above: Performed By: #### 48475-3, CBCA, CMP ####[facility] ([id number])[address] [place] [address] 97115Tcmgdoywr (Bld) [#/Vol]0.6 10*3/uLNormal0-0.9Mer[facility] Health Allen HospitalComment on above: Performed By: #### 17306-6, CBCA, CMP ####[facility] ([id number])[address] [place] [address] 76408Tedhkkwav/100 WBC (Bld)10.1 %NormalProWhite Rock Medical CenterCompromedica charles and [facility] on above:Performed By: #### 81814-2, CBCA, CMP ####[facility] ([id number])[address] [place] [address] 78192Vltduzquhgc/100 WBC (Bld)49.7 %Normal ProMAdventist Health St. HelenaComment on above:Performed By: #### 32518-8, CBCA, CMP ####[facility] ([id number])[address] [place] [address] 29142Rksrhthe mean volume (Bld) [Entitic vol]8.8 fLNormal7-12 [facility] HospitalComment on above:Performed By: #### 18286-3, CBCA, CMP ####[facility] ([id number])[address] [place] [address] 82645Poqklzhcx (Bld) [#/Vol]224 10*3/fGJccrkk147-399SocTzobin Fremont HospitalComment on above:Performed By: #### 99442-0, CBCA, CMP ####[facility] ([id number])[address] [place] [address] 95890TCX COUNT3.60 X10E12/LLow3.80-5.20ProWhite Rock Medical CenterComment on above:Performed By: #### 51470-5, CBCA, CMP ####[facility] ([id number])[address] [place] [address] 26639UPY (Bld) [#/Vol]6.2 10*3/uLNormal4.0-11.0Mer[facility] Allen HospitalComment on above:Performed By: #### 92730-7, CBCA, CMP ####[facility] ([id number])[address] [place] [address] 71640ETDSRYMEGYLDY METABOLIC PANELon 66-59-8847Nnbkyux [Mass/Vol]3.6 g/dLNormal3.2-5.3PTriHealth Bethesda Butler HospitalComment on above:Performed By: #### 54312-2, CBCA, CMP ####[facility] ([id number])[address] [place] [address] 55723QQL [Catalytic activity/Vol]85 U/CJkprdu06-937XqlBqctsoWhite Rock Medical CenterComment on above:Performed By: #### 20682-6, CBCA, CMP ####[facility] ([id number])[address] [place] [address] 31610WHQ [Catalytic activity/Vol]15 U/LNormal0-31PTriHealth Bethesda Butler HospitalComment on above:Performed By: #### 01178-3, CBCA, CMP ####[facility] ([id number])[address] [place] [address] 59222Uruzt gap [Moles/Vol]10 mmol/LNormal5-15ProWhite Rock Medical CenterComment on above:Performed By: #### 17866-9, CBCA, CMP ####[facility] ([id number])[address] [place] [address] 29115QMD [Catalytic activity/Vol]19 U/LNormal0-41ProWhite Rock Medical Center Comment on above:Performed By: #### 86784-1, CBCA, CMP ####[facility] ([id number])[address] [place] [address], [place] [address] Bilirubin [Mass/Vol]0.2 mg/dLLow0.3-1.2PTriHealth Bethesda Butler HospitalComment on above:Performed By: #### 38318-1, CBCA, CMP ####[facility] ([id number])[address] [place] [address], [place] [address]78[address]Zrcfuql [Mass/Vol]8.8 mg/dLNormal8.5-10.5PTriHealth Bethesda Butler HospitalComment on above: Performed By: #### 84309-4, CBCA, CMP ####[facility] ([id number])[address] [place] [address], [place] 74[address]Mcgypwvn [Moles/Vol]103 mmol/NDuyvmf64-368YlzOkiwmlWhite Rock Medical CenterComment on above: Performed By: #### 09862-3, CBCDanielle, CMP ####[facility] ([id number])[address] [place] [address], [place] 467[address]WP1 [Moles/Vol]23 mmol/VEinvwv56-20RqwKjvkqcTriHealth Bethesda Butler HospitalComment on above:Performed By: #### 62106-9, CBCA, CMP ####[facility] ([id number])[address] [place] [address], [place] [address]Cpojsdkurg [Mass/Vol]1.55 mg/dLHigh0.40-1.[address] HelenaComment on above:Result Comment: METHOD TRACEABLE TO IDMS STANDARDPerformed By: #### 65299-5, CBCA, CMP ####[facility] ([id number])[address] [place] [address], [place] [address]HBW/1.73 sq M.predicted among non-blacks MDRD (S/P/Bld) [Vol rate/Area]34 mL/min/{1.73_m2} Low>59ProWhite Rock Medical CenterComment on above:Result Comment: Reported eGFR is based on theCKD-EPI 2020 equation that doesnot use a race coefficient. Performed By: #### 59864-7CARMEN, CMP ####[facility] ([id number])[address] [place] [address] 62027Qhapqet [Mass/Vol]234 mg/sNZkta27-49CmfUnljkxWhite Rock Medical CenterComment on above:Performed By: #### 51828-7CARMEN Jimenez, CMP ####[facility] ([id number])[address] [place] [address] 27631Bhexswrvt [Moles/Vol]4.2 mmol/LNormal 3.5-5.0ProWhite Rock Medical CenterComment on above:Performed By: #### 35518-2, CBCA, CMP ####[facility] ([id number])[address] [place] [address] 03173Wioxfhc [Mass/Vol]6.7 g/dLNormal6.0-8.0ProWhite Rock Medical CenterComment on above:Performed By: #### 45420-3, CBCA, CMP ####[facility] ([id number])[address] [place] [address] 57159Qivufx [Moles/Vol]136 mmol/SXzxqhy529-103EncBrpclg Fremont HospitalComment on above:Performed By: #### 00241-6, CBCA, CMP ####[facility] ([id number])[address] [place] [address] 25235Jphc nitrogen [Mass/Vol]33 mg/dLHigh5-27ProWhite Rock Medical CenterComment on above:Performed By: #### 22472-9, CBCA, CMP ####[facility] ([id number])[address] [place] [address] 38615Ggouiog Glucometer (BldC) [Mass/Vol]on 29-62-6354Carcpxw [Mass/Vol]169 mg/oUAfzh51-54ZfvVggygdWhite Rock Medical Center MAGNESIUMon 09-57-1829Zcxlmvnkf [Mass/Vol]1.9 mg/dLNormal1.8-2.6ProWhite Rock Medical CenterComment on above:Performed By: #### 66085-2, CBCA, CMP ####[facility] ([id number])[address] [place] [address], [place] [address]KJA AND AUTO DIFFon 69-93-5303PPVJXKJT BASOPHIL0.0 X10E9/L Normal0.0-0.2ProMedAlameda HospitalComment on above:Performed By: #### CMP, CBCA, ####[facility] ([id number])[address] [place] [address], [place] [address]DGIYLMIE NEUTROPHIL3.7 X10E9/LNormal1.5-6.6ProWhite Rock Medical CenterComment on above:Performed By: #### CMP, CBCA, ####[facility] ([id number])[address] [place] [address] 30176Tkmrivfuy/100 WBC (Bld)0.7 %NormalMercy Health Allen HospitalComment on above:Performed By: #### CMP, CBCA, ####[facility] ([id number])[address] [place] [address] 88935Cpwpchpcegd (Bld) [#/Vol]0.3 10*3/uLNormal0.0-0.4[facility] Comment on above:Performed By: #### CMP, CBCA, ####[facility] ([id number])[address] [place] [address] 73837 Eosinophils/100 WBC (Bld)4.3 %NormalMercy Health Allen HospitalComment on above: Performed By: #### CMP, CBCA, ####[facility] ([id number])[address] [place] [address] 76545Ssblqewcojt distribution width (RBC) [Ratio]15.9 %High11.5-15.0[facility] Comment on above:Performed By: #### RUBEN, CBCA, ####[facility] ([id number])[address] [place] [address] 96143 Hematocrit (Bld) [Volume fraction]31.1 %Lei65-11StxDuoharMercy Health Allen Hospital Comment on above:Performed By: #### CMP, CBCA, ####[facility] ([id number])[address] [place] [address] 87387 Hemoglobin (Bld) [Mass/Vol]10.4 g/dLLow11.7-15.5PTriHealth Bethesda Butler Hospital Comment on above:Performed By: #### RUBEN, CBCA, ####[facility] ([id number])[address] [place] [address] 06291 Lymphocytes (Bld) [#/Vol]2.0 10*3/uLNormal1.0-3.5PTriHealth Bethesda Butler Hospital Comment on above:Performed By: #### CMP, CBCA, ####[facility] ([id number])[address] [place] [address] 09389 Lymphocytes/100 WBC (Bld)29.4 %NormalProWhite Rock Medical CenterComment on above: Performed By: #### CMP, CBCA, ####[facility] ([id number])[address] [place] [address] 79235PJR (RBC) [Entitic mass]28.2 qnJpeytk58-85NcnMgoeemMercy Health Allen HospitalComment on above: Performed By: #### CMP, CBCA, ####[facility] ([id number])[address] [place] [address] 92709HURN (RBC) [Mass/Vol]33.5 g/wJObuerm01-98PxeYvbcuqMercy Health Allen HospitalComment on above: Performed By: #### RUBEN, CBCA, ####[facility] ([id number])[address] [place] [address] 78732VWM (RBC) [Entitic vol]84 dJXbydjk06-070YyvBjrjnjMercy Health Allen HospitalComment on above: Performed By: #### RUBEN, CBCDanielle, ####[facility] ([id number])[address] [place] [address] 18222Yzanaardx (Bld) [#/Vol]0.8 10*3/uLNormal0-0.9Mer[facility] HospitalComment on above: Performed By: #### RUBEN, CBCDanielle, ####[facility] ([id number])[address] [place] [address] 48997Cusgltdvv/100 WBC (Bld)12.0 %NormalMercy Health Allen HospitalComment on above:Performed By: #### RUBEN, CBCA, ####[facility] ([id number])[address] [place] [address] 52303Qbjsybtstkg/100 WBC (Bld)53.6 %Normal [facility] Allen HospitalComment on above:Performed By: #### CMP, CBCA, ####[facility] ([id number])[address] [place] [address] 38935Xwuyuosd mean volume (Bld) [Entitic vol]9.1 fLNormal7-12 [facility] HospitalComment on above:Performed By: #### CMP, CBCA, ####[facility] ([id number])[address] [place] [address] 87789Wbetqevza (Bld) [#/Vol]244 10*3/rEKyohqk984-155DgmJgutxz Fremont HospitalComment on above:Performed By: #### CARMEN MIRANDA, ####[facility] ([id number])[address] [place] [address] 72115UEY COUNT3.69 X10E12/LLow3.80-5.20ProWhite Rock Medical CenterComment on above:Performed By: #### CARMEN MIRANDA, ####[facility] ([id number])[address] [place] [address] 33380TUU (Bld) [#/Vol]6.9 10*3/uLNormal4.0-11.0ProWhite Rock Medical CenterComment on above:Performed By: #### CARMEN MIRANDA, ####[facility] ([id number])[address] [place] [address] 04895MHISPUCMTREXZ METABOLIC PANELon 36-30-3718Tefygxr [Mass/Vol]3.6 g/dLNormal3.2-5.3PTriHealth Bethesda Butler HospitalComment on above:Performed By: #### CARMEN MIRANDA, ####[facility] ([id number])[address] [place] [address] 94643LPH [Catalytic activity/Vol]87 U/AMsyofp65-514XvgLdnhpbMercy Health Allen HospitalComment on above:Performed By: #### CARMEN MIRANDA, ####[facility] ([id number])[address] [place] [address] 81174TZT [Catalytic activity/Vol]17 U/LNormal0-31PTriHealth Bethesda Butler HospitalComment on above:Performed By: #### CARMEN MIRANDA, ####[facility] ([id number])[address] [place] [address] 22439Ncqeq gap [Moles/Vol]9 mmol/LNormal5-15Mer[facility] HospitalComment on above:Performed By: #### CARMEN MIRANDA, ####[facility] ([id number])[address] [place] [address], [place] 355[address]ALT [Catalytic activity/Vol]21 U/LNormal0-41[facility] Comment on above:Performed By: #### CARMEN MIRANDA, ####[facility] ([id number])[address] [place] [address], [place] [address] Bilirubin [Mass/Vol]0.3 mg/dLNormal0.3-1.2PTriHealth Bethesda Butler HospitalComment on above:Performed By: #### CARMEN MIRANDA, ####[facility] ([id number])[address] [place] [address] 10508Voexjlf [Mass/Vol]8.7 mg/dLNormal8.5-10.5PTriHealth Bethesda Butler HospitalComment on above: Performed By: #### CARMEN MIRANDA, ####[facility] ([id number])[address] [place] [address], [place] 110[address]Vhqfiggi [Moles/Vol]100 mmol/OIpyltb23-374XzcSyyczeMercy Health Allen HospitalComment on above: Performed By: #### CARMEN MIRANDA, ####[facility] ([id number])[address] [place] [address], [place] 478[address]NA1 [Moles/Vol]25 mmol/OHgfgcp05-53PnpRdmoasTriHealth Bethesda Butler HospitalComment on above:Performed By: #### CARMEN MIRANDA, ####[facility] ([id number])[address] [place] [address], [place] 229[address]Dsoqpyhngl [Mass/Vol]1.75 mg/dLHigh0.40-1.[address] HelenaComment on above:Result Comment: METHOD TRACEABLE TO IDMS STANDARDPerformed By: #### CARMEN MIRANDA, ####[facility] ([id number])[address] [place] [address] 40260XDN/1.73 sq M.predicted among non-blacks MDRD (S/P/Bld) [Vol rate/Area]29 mL/min/{1.73_m2} Low>59ProWhite Rock Medical CenterComment on above:Result Comment: Reported eGFR is based on theCKD-EPI 2020 equation that doesnot use a race coefficient. Performed By: #### CARMEN MIRANDA, ####[facility] ([id number])[address] [place] [address] 09866Syulsjp [Mass/Vol]266 mg/eKJflz28-39XfwYkpbzwWhite Rock Medical CenterComment on above:Performed By: #### CARMEN MIRANDA, ####[facility] ([id number])[address] [place] [address] 49328Fbisduwmy [Moles/Vol]4.1 mmol/LNormal 3.5-5.0ProWhite Rock Medical CenterComment on above:Performed By: #### CARMEN MIRANDA, ####[facility] ([id number])[address] [place] [address] 22485Qvjgswk [Mass/Vol]6.9 g/dLNormal6.0-8.0ProWhite Rock Medical CenterComment on above:Performed By: #### CARMEN MIRANDA, ####[facility] ([id number])[address] [place] [address] 34359Fslpnd [Moles/Vol]134 mmol/YFtynnh579-134WlcDjmxdp [facility]remont HospitalComment on above:Performed By: #### CARMEN MIRANDA, ####[facility] ([id number])[address] [place] [address] [place] 65[address]Tmye nitrogen [Mass/Vol]37 mg/dLHigh5-27Mer[facility] HospitalComment on above:Performed By: #### CARMEN MIRANDA, 44923-5 ####[facility] ([id number])[address] [place] [address] 49357Xmvogog Glucometer (BldC) [Mass/Vol]on 46-96-1330Fzkdtcn [Mass/Vol]206 mg/qSOwqe70-91LqcCugszvMercy Health Allen HospitalGlucose [Mass/Vol]179 mg/vBRqcz67-62DnzRkzaveWhite Rock Medical CenterGlucose [Mass/Vol]339 mg/cKLker37-76JawWdsdyxMercy Health Allen HospitalMAGNESIUMon 20-17-8332Tpecrrwzt [Mass/Vol]1.9 mg/dLNormal1.8-2.6ProWhite Rock Medical CenterComment on above: Performed By: #### CARMEN MIRANDA, ####[facility] ([id number])[address] [place] [address] 88188HFS AND AUTO DIFF on 34-89-6173GSWALEPW BASOPHIL0.0 X10E9/LNormal0.0-0.2PTriHealth Bethesda Butler Hospital Comment on above:Performed By: #### RUBEN MORALES, ####[facility] ([id number])[address] [place] [address] 73749FUDJDMNB NEUTROPHIL4.9 X10E9/LNormal1.5-6.6Mer[facility] Allen HospitalComment on above: Performed By: #### RUBEN MORALES, 59745-0 ####[facility] ([id number])[address] [place] [address] 08762Sirlldbgk/100 WBC (Bld)0.4 %NormalProWhite Rock Medical CenterComment on above:Performed By: #### RUBEN MORALES, ####[facility] ([id number])[address] [place] [address] 69148Kjffksgzfap (Bld) [#/Vol]0.1 10*3/uLNormal 0.0-0.4Mer[facility] HospitalComment on above:Performed By: #### RUBEN MORALES, ####[facility] ([id number])[address] [place] [address] 48976Ynivbnzblif/100 WBC (Bld)1.1 %NormalProWhite Rock Medical CenterComment on above:Performed By: #### RUBEN MORALES, ####[facility] ([id number])[address] [place] [address] 43959Yckspvxgxxj distribution width (RBC) [Ratio]15.5 %High11.5-15.0Mer[facility] Health Allen HospitalComment on above:Performed By: #### RUBEN MORALES, ####[facility] ([id number])[address] [place] [address] 49470Ouwhrhayln (Bld) [Volume fraction]33.5 %Sdn07-83LceCglbjeMercy Health Allen HospitalComment on above:Performed By: #### RUBEN MORALES, ####[facility] ([id number])[address] [place] [address] 58970Rwpfdzlevo (Bld) [Mass/Vol]11.1 g/dLLow11.7-15.5PTriHealth Bethesda Butler HospitalComment on above:Performed By: #### RUBEN MORALES, ####[facility] ([id number])[address] [place] [address] 48042Tqsgkidchgd (Bld) [#/Vol]2.3 10*3/uLNormal1.0-3.5PTriHealth Bethesda Butler HospitalComment on above:Performed By: #### RUBEN MORALES, ####[facility] ([id number])[address] [place] [address] 00388Eopigbjqlae/100 WBC (Bld)27.9 %NormalProWhite Rock Medical CenterComment on above:Performed By: #### CBCA, CMP, ####[facility] ([id number])[address] [place] [address] 99460KFL (RBC) [Entitic mass]27.9 vkMarfqh02-46FdiNiheiaWhite Rock Medical CenterComment on above:Performed By: #### CBCA, CMP, ####[facility] ([id number])[address] [place] [address] 82335THOB (RBC) [Mass/Vol]33.1 g/fZRinnzb96-55AacPqowclWhite Rock Medical CenterComment on above: Performed By: #### CBCA, CMP, ####[facility] ([id number])[address] [place] [address] 30542MWB (RBC) [Entitic vol]84 nARskqnf24-613MhfVkjvkb [facility] HospitalComment on above: Performed By: #### CBCA, CMP, ####[facility] ([id number])[address] [place] [address] 21237Nxbxzgdjh (Bld) [#/Vol]1.0 10*3/uLHigh0-0.9Mer[facility] HospitalComment on above:Performed By: #### CBCA, CMP, ####[facility] ([id number])[address] [place] [address] 11195Anryvxoox/100 WBC (Bld)12.0 %Normal ProMAdventist Health St. HelenaComment on above:Performed By: #### CBCA, CMP, ####[facility] ([id number])[address] [place] [address] 36130Scsgoumgmum/100 WBC (Bld)58.6 %NormalProWhite Rock Medical CenterComment on above:Performed By: #### RUBEN MORALES, ####[facility] ([id number])[address] [place] [address] 28776Nftcbqpd mean volume (Bld) [Entitic vol]9.0 fLNormal7-12PTriHealth Bethesda Butler HospitalComment on above:Performed By: #### RUBEN MORALES, ####[facility] ([id number])[address] [place] [address] 20204Abdrjzrbb (Bld) [#/Vol]241 10*3/iZCogjla761-827QydErvkucMercy Health Allen Hospital Comment on above:Performed By: #### RUBEN MORALES, ####[facility] ([id number])[address] [place] [address] 49368WCF COUNT3.97 X10E12/LNormal3.80-5.20Mer[facility] HospitalComment on above: Performed By: #### RUBEN MORALES, ####[facility] ([id number])[address] [place] [address] 75023YMX (Bld) [#/Vol] 8.3 10*3/uLNormal4.0-11.0Mer[facility] Allen HospitalComment on above:Performed By: #### CARMEN CMP, ####[facility] ([id number])[address] [place] [address] 06717FCJRRDIROGJEY METABOLIC PANELon 33-32-8678Cprbsev [Mass/Vol]3.9 g/dLNormal3.2-5.3PTriHealth Bethesda Butler Hospital Comment on above:Performed By: #### CARMEN CMP, ####[facility] ([id number])[address] [place] [address] [place], [place] [address]VLB [Catalytic activity/Vol]95 U/IIqbwyj23-968UdsKudajiWhite Rock Medical CenterComment on above:Performed By: #### RUBEN MORALES, ####[facility] ([id number])[address] [place] [address] [place], [place] [address]ZES [Catalytic activity/Vol]15 U/LNormal0-31ProMedAlameda HospitalComment on above: Performed By: #### RUBEN MORALES, ####[facility] ([id number])[address] [place] [address], [place] [address]Qcbbn gap [Moles/Vol]11 mmol/LNormal5-15ProWhite Rock Medical CenterComment on above: Performed By: #### RUBEN MORALES, ####[facility] ([id number])[address] [place] [address], [place] [address]GTR [Catalytic activity/Vol]24 U/LNormal0-41ProWhite Rock Medical CenterComment on above: Performed By: #### RUBEN MORALES, ####[facility] ([id number])[address] [place] [address], [place] 77731Defldsafb [Mass/Vol]0.5 mg/dLNormal0.3-1.2PTriHealth Bethesda Butler HospitalComment on above: Performed By: #### RUBEN MORALES, ####[facility] ([id number])[address] [place] [address], [place] 64952Cjohedp [Mass/Vol]9.5 mg/dLNormal8.5-10.5PTriHealth Bethesda Butler HospitalComment on above: Performed By: #### RUBEN MORALES, ####[facility] ([id number])[address] [place] [address], [place] 19889Avzybevc [Moles/Vol]100 mmol/QFhgnqu00-507FpkRjnweiWhite Rock Medical CenterComment on above: Performed By: #### RUBEN MORALES, ####[facility] ([id number])[address] [place] [address], [place] [address]FI2 [Moles/Vol]23 mmol/LWfyvxj49-30QmkYmocwg [facility] HospitalComment on above:Performed By: #### RUBEN MORALES, ####[facility] ([id number])[address] [place] [address]Uzrmnfanyr [Mass/Vol]1.59 mg/dLHigh0.40-1.[address] HelenaComment on above:Result Comment: METHOD TRACEABLE TO IDMS STANDARDPerformed By: #### RUBEN MORALES, ####[facility] ([id number])[address] [place] [address] 76266EXE/1.73 sq M.predicted among non-blacks MDRD (S/P/Bld) [Vol rate/Area]33 mL/min/{1.73_m2} Low>59ProWhite Rock Medical CenterComment on above:Result Comment: Reported eGFR is based on theCKD-EPI 2020 equation that doesnot use a race coefficient. Performed By: #### RUBEN MORALES, ####[facility] ([id number])[address] [place] [address]5941Qwijcyh [Mass/Vol]162 mg/nIPhds46-39IezYpfagbWhite Rock Medical CenterComment on above:Performed By: #### RUBEN MORALES, ####[facility] ([id number])[address] [place] [address] 52079Oimpwjjex [Moles/Vol]4.1 mmol/LNormal 3.5-5.0ProWhite Rock Medical CenterComment on above:Performed By: #### RUBEN MORALES, ####[facility] ([id number])[address] [place] [address] 37152Mmufwvm [Mass/Vol]7.7 g/dLNormal6.0-8.0Mer[facility] Health Allen HospitalComment on above:Performed By: #### RUBEN MORALES, 18664-6 ####[facility] ([id number])[address] [place] [address]2352Felvnh [Moles/Vol]134 mmol/AAhyuod501-494QyjJmjqkc [facility] HospitalComment on above:Performed By: #### RUBEN MORALES, 54218-8 ####[facility] ([id number])[address] [place] [address] 14245Deqg nitrogen [Mass/Vol]24 mg/dLNormal5-27ProWhite Rock Medical CenterComment on above:Performed By: #### RUBEN MORALES, 65798-2 ####[facility] ([id number])[address] [place] [address] 77158Wemxnda Glucometer (BldC) [Mass/Vol]on 01-68-7490Ojlvxys [Mass/Vol]216 mg/bZFjsn23-31MhzOmftqaMercy Health Allen Hospital MAGNESIUMon 64-24-4580Ncfyuockv [Mass/Vol]1.8 mg/dLNormal1.8-2.6Mer[facility] Health Allen HospitalComment on above:Performed By: #### RUBEN MORALES, 84818-0 ####[facility] ([id number])[address] [place] [address] 63[address]CY CHEST 1 VWon 47-20-7001PF CHEST 1 VWNormalProWhite Rock Medical CenteraPTT Coag (PPP) [Time]on 65-80-9394sMZT Coag (Bld) [Time]27 s Lfgxby87-71OwtOcubsfMercy Health Allen HospitalComment on above:Result Comment: NEW REFERENCE RANGEPerformed By: #### 36970-6 ####[facility] ([id number])[address] [place] [address]23[address]FJR AND AUTO DIFF on 40-32-2408USQENHWS BASOPHIL0.0 X10E9/LNormal0.0-0.2PRapides Regional Medical Centerica [facility] Comment on above:Performed By: #### CMP, CBCA ####[facility] ([id number])[address] [place] [address]97[address]EDABJYOT NEUTROPHIL8.4 X10E9/LHigh1.5-6.6ProWhite Rock Medical CenterComment on above: Performed By: #### CMP, CBCA ####[facility] ([id number])[address] [place] [address] 794[address]Mjpwoifcz/100 WBC (Bld)0.4 %Normal ProMedicBaldwin Park HospitalComment on above:Performed By: #### CMP, CBCA ####[facility] ([id number])[address] [place] [address]46[address]Iejfmvacmsu (Bld) [#/Vol]0.0 10*3/uLNormal0.0-0.4Mer[facility] Health Allen HospitalComment on above:Performed By: #### CMP, CBCA ####[facility] ([id number])[address] [place] [address] 65550 Eosinophils/100 WBC (Bld)0.1 %NormalProWhite Rock Medical CenterComment on above: Performed By: #### CMP, CBCA ####[facility] ([id number])[address] [place] [address] 10284Aglzpldwtjy distribution width (RBC) [Ratio]15.7 %High11.5-15.0Mercy Health Allen HospitalComment on above:Performed By: #### CMP, CBCA ####[facility] ([id number])[address] [place] [address] 29876Xbiwvqpbdn (Bld) [Volume fraction]36.1 % Xnwdvj18-42KmzGleqdaWhite Rock Medical CenterComment on above:Performed By: #### CMP, CBCA ####[facility] ([id number])[address] [place] [address] 96016Tnkhwgtkgb (Bld) [Mass/Vol]11.8 g/kPXyznep13.7-15.5 [facility] CenterComment on above:Performed By: #### CMP, CBCA ####[facility] ([id number])[address] [place] [address] 53470Djuumwfgnos (Bld) [#/Vol]0.8 10*3/uLLow1.0-3.5PRapides Regional Medical Centerica [facility] Surgical CenterComment on above:Performed By: #### CMP, CBCA ####[facility] ([id number])[address] [place] [address] 32741 Lymphocytes/100 WBC (Bld)8.2 %NormalMercy Health Allen HospitalComment on above: Performed By: #### CMP, CBCA ####[facility] ([id number])[address] [place] [address] 91588YGA (RBC) [Entitic mass]27.6 pgNormal 27-34Mercy Health Allen HospitalComment on above:Performed By: #### CMP, CBCA ####[facility] ([id number])[address] [place] [address] 42069GZDG (RBC) [Mass/Vol]32.8 g/aPLmtevo03-17VfmZzztuhWhite Rock Medical CenterComment on above:Performed By: #### CMP, CBCA ####[facility] ([id number])[address] [place] [address] 72590ZHT (RBC) [Entitic vol]84 qUAxubmp94-199PtkGydhdvMercy Health Allen HospitalComment on above: Performed By: #### CMP, CBCA ####[facility] ([id number])[address] [place] [address] 17282Qiwuffcfm (Bld) [#/Vol]0.7 10*3/uLNormal 0-0.9Mer[facility] Health Allen HospitalComment on above:Performed By: #### CMP, CBCA ####[facility] ([id number])[address] [place] [address] 96603Bynuqnpvn/100 WBC (Bld)7.4 %NormalMercy Health Allen HospitalComment on above:Performed By: #### CMP, CBCA ####[facility] ([id number])[address] [place] [address] 08261 Neutrophils/100 WBC (Bld)83.9 %NormalMercy Health Allen HospitalComment on above: Performed By: #### CMP, CBCA ####[facility] ([id number])[address] [place] [address] 94210Hgzavdlu mean volume (Bld) [Entitic vol]8.4 fLNormal7-12[facility] CenterComment on above:Performed By: #### CMP, CBCA ####[facility] ([id number])[address] [place] [address] 24643Oxcnlzcpi (Bld) [#/Vol]282 10*3/tMBgrkdf680-834 [facility] CenterComment on above:Performed By: #### CMP, CBCA ####[facility] ([id number])[address] [place] [address] 18231HAY COUNT4.29 X10E12/LNormal3.80-5.20ProWhite Rock Medical CenterComment on above:Performed By: #### CMP, CBCA ####[facility] ([id number])[address] [place] [address] 76946YYP (Bld) [#/Vol]10.0 10*3/uLNormal4.0-11.0ProWhite Rock Medical CenterComment on above: Performed By: #### RUBEN CBCA ####[facility] ([id number])[address] [place] [address] 66868FJGWKSMNIOMFM METABOLIC PANELon 51-18-0193Bunpmfg [Mass/Vol]4.3 g/dLNormal3.2-5.3PTriHealth [facility] Comment on above:Performed By: #### CMP, CBCA ####[facility] ([id number])[address] [place] [address], [place] [address]GHW [Catalytic activity/Vol]108 U/MFpnglk97-968KqfXafpivWhite Rock Medical CenterComment on above: Performed By: #### CMP CBCA ####[facility] ([id number])[address] [place] [address], [place] [address]EOG [Catalytic activity/Vol]17 U/LNormal 0-31PTriHealth Bethesda Butler HospitalComment on above:Performed By: #### CMP, CBCA ####[facility] ([id number])[address] [place] [address] [place] [address]Zjuwb gap [Moles/Vol]13 mmol/LNormal5-15ProWhite Rock Medical CenterComment on above:Performed By: #### CMP, CBCA ####[facility] ([id number])[address] [place] [address] 02015LSS [Catalytic activity/Vol]27 U/LNormal0-41ProWhite Rock Medical CenterComment on above:Performed By: #### CMP, CBCA ####[facility] ([id number])[address] [place] [address], [place] [address]Fdyzsyusx [Mass/Vol]0.4 mg/dL Normal0.3-1.2PTriHealth Bethesda Butler HospitalComment on above:Performed By: #### CMP, CBCA ####[facility] ([id number])[address] [place] [address], [place] [address]Jhzbgsq [Mass/Vol]9.7 mg/dLNormal8.5-10.5PTriHealth Bethesda Butler HospitalComment on above:Performed By: #### RUBEN, CBCA ####[facility] ([id number])[address] [place] [address], [place] [address]Ewdbxwhe [Moles/Vol]96 mmol/QLcp63-945ZutBclppzWhite Rock Medical CenterComment on above: Performed By: #### RUBEN, CBCA ####[facility] ([id number])[address] [place] [address], [place] [address]GE2 [Moles/Vol]25 mmol/TElaumo11-65 [facility] HospitalComment on above:Performed By: #### RUBEN, CBCA ####[facility] ([id number])[address] [place] [address], [place] [address]Nmejlosgpz [Mass/Vol]1.44 mg/dLHigh0.40-1.00Mer[facility] Health Allen HospitalComment on above:Result Comment: METHOD TRACEABLE TO IDMS STANDARDPerformed By: #### RUBEN, CBCA ####[facility] ([id number])[address] [place] [address] 69940SOO/1.73 sq M.predicted among non-blacks MDRD (S/P/Bld) [Vol rate/Area]37 mL/min/{1.73_m2} Low>59ProWhite Rock Medical CenterComment on above:Result Comment: Reported eGFR is based on theCKD-EPI 2020 equation that doesnot use a race coefficient. Performed By: #### RUBEN, CBCA ####[facility] ([id number])[address] [place] [address], [place] [address]Vgilqzu [Mass/Vol]137 mg/sEUxbk66-26 [facility] HospitalComment on above:Performed By: #### CMP, CBCA ####[facility] ([id number])[address] [place] [address] 34208Wumyzperi [Moles/Vol]3.8 mmol/LNormal3.5-5.0Mer[facility] HospitalCompromedica charles [facility] on above:Performed By: #### CMP, CBCA ####[facility] ([id number])[address] [place] [address] 54669 Protein [Mass/Vol]8.4 g/dLHigh6.0-8.0Mer[facility] Health Allen HospitalComment on above: Performed By: #### RUBEN, CBCA ####[facility] ([id number])[address] [place] [address] 41239Zsaqdn [Moles/Vol]134 mmol/LNormal 134-146ProWhite Rock Medical CenterComment on above:Performed By: #### RUBEN, CBCA ####[facility] ([id number])[address] [place] [address] 78265Vdoz nitrogen [Mass/Vol]22 mg/dLNormal5-27Mer[facility] Health Allen HospitalComment on above:Performed By: #### CMP, CBCA ####[facility] ([id number])[address] [place] [address] ABDOMEN AND PELVIS WO CONTon 65-18-3661QK ABDOMEN AND PELVIS WO CONTNormal ProMAdventist Health St. HelenaGlucose Glucometer (BldC) [Mass/Vol]on 10-27-2024 Glucose [Mass/Vol]157 mg/jLDcni76-64EhuPxjfbcMercy Health Allen HospitalGlucose [Mass/Vol] 117 mg/xYGvoc36-56MmbQxmfebMercy Health Allen HospitalLactate (P obed) [Moles/Vol]on 32-64-5447KLAIVZU W/REFLEX1.8 mmol/LNormal0.4-2.0[facility] Comment on above:Result Comment: Result did not trigger repeat Lactate,re-order if needed.Performed By: #### 75183-6 ####[facility] ([id number])[address] [place] [address], [facility], [place] [address]LBYYX CULTUREon 34-38-0448Izznmmyo identified Cx Nom (U)CULTURE RESULTS 10-50,000 ORGANISMS/mL NORMAL UROGENITAL FLORAMadison Health Comment on above:Performed By: #### 630-4 ####[facility] ([id number])[address] [facility], [address], [place] [address]DFM MACROSCOPIC NURon 36-00-9355ZSYBGDDAG NURNegativeNormalNEGProWhite Rock Medical CenterComment on above:Performed By: #### NUM ####[facility] ([id number])[address] [place] [address], [facility], [place] [address]RUSYW/HGB NURMODERATEAbnormalNEG [facility] CenterComment on above:Performed By: #### NUM ####[facility] ([id number])[address] [place] [address], [facility], [place] [address]KIRIYMF NURNegativeNormalNEGMercy Health Allen HospitalComment on above: Performed By: #### NUM ####[facility] ([id number])[address] [place] [address], [facility], [place] [address]ILLMRYV NUR15 mg/dLAbnormalNEGProWhite Rock Medical CenterComment on above:Performed By: #### NUM ####[facility] ([id number])[address] [place] [address], [place] [address] LEUKOCYTE ESTERASE NURSmallAbnormalNEGProWhite Rock Medical CenterComment on above:Performed By: #### NUM ####[facility] ([id number])[address] [place] [address], [facility], [place] [address]GQQPUTS NURNegativeNormalNEGProWhite Rock Medical CenterComment on above:Performed By: #### NUM ####[facility] ([id number])[address] [place] [address], [place] [address]NT MARYJO 5.3Bqiyxy7.0-8.5PTriHealth Bethesda Butler HospitalComment on above:Performed By: #### NUM ####[facility] ([id number])[address] [place] [address], [place] [address]FVFRYOW LYY478 mg/dLAbnormalNEGProWhite Rock Medical Center Comment on above:Performed By: #### NUM ####[facility] ([id number])[address] [place] [address], [place] [address]AKRGZOXP GRAVITY NUR1.270Bwlrdd6.003-1.035ProWhite Rock Medical CenterComment on above:Performed By: #### NUM ####[facility] ([id number])[address] [place] [address], [place] [address]JZWMJMHRTBPT NUR0.2 eu/dLNormal<1.1PTriHealth Bethesda Butler HospitalComment on above:Performed By: #### NUM ####[facility] ([id number])[address] [place] [address], [place] [address]CMAIZ METABOLIC PANLon 38-36-1083Shwbc gap [Moles/Vol]10 mmol/LNormal5-15ProWhite Rock Medical CenterComment on above:Performed By: #### CARMEN 66848-8, BMP ####[facility] ([id number])[address] [place] [address], [place] [address]Zhydlrw [Mass/Vol]9.4 mg/dLNormal8.5-10.5PTriHealth Bethesda Butler HospitalComment on above:Performed By: #### CARMEN, 43645-6, BMP ####[facility] ([id number])[address] [place] [address], [place] [address]Snsaifyd [Moles/Vol]103 mmol/LNvaxwu15-133EhrNsazfcWhite Rock Medical CenterComment on above: Performed By: #### CARMEN, 90541-4, BMP ####[facility] ([id number])[address] [place] [address] 28755EZ8 [Moles/Vol]23 mmol/FTqopix25-42WekRbmkts Fremont HospitalComment on above:Performed By: #### CARMEN 90315-8, BMP ####[facility] ([id number])[address] [place] [address] 37532Nhwmgvqjna [Mass/Vol]1.49 mg/dLHigh0.40-1.[address] HelenaComment on above:Result Comment: METHOD TRACEABLE TO IDMS STANDARDPerformed By: #### CARMEN 20382-9, BMP ####[facility] ([id number])[address] [place] [address] 06742UFA/1.73 sq M.predicted among non-blacks MDRD (S/P/Bld) [Vol rate/Area]36 mL/min/{1.73_m2} Low>59ProWhite Rock Medical CenterComment on above:Result Comment: Reported eGFR is based on theCKD-EPI 2020 equation that doesnot use a race coefficient. Performed By: #### CRAMEN, 07928-3, BMP ####[facility] ([id number])[address] [place] [address] 68226Ozrhfiv [Mass/Vol]185 mg/gDRrnb35-62RubGokeadWhite Rock Medical CenterComment on above:Performed By: #### CARMEN 43057-7, BMP ####[facility] ([id number])[address] [place] [address] 20335Aoihylkdb [Moles/Vol]4.5 mmol/LNormal 3.5-5.0ProWhite Rock Medical CenterCompromedica charles and [facility] hickman hospital on above:Result Comment: SPECIMEN HEMOLYZED, RESULTS INCREASEDPerformed By: #### CARMEN, 11703-2, BMP ####[facility] ([id number])[address] [place] [address], [place] [address]Ohhjpn [Moles/Vol]136 mmol/ONprzah069-984HucIxrscb Fremont HospitalComment on above:Performed By: #### CARMEN, 94904-3, BMP ####[facility] ([id number])[address] [place] [address] 42559Nqyg nitrogen [Mass/Vol]23 mg/dLNormal5-27ProWhite Rock Medical CenterComment on above:Performed By: #### CARMEN 64356-7, BMP ####[facility] ([id number])[address] [place] [address], [place] [address]ORP AND AUTO DIFFon 53-44-8731EONONJPR BASOPHIL0.1 X10E9/LNormal0.0-0.2[facility] Surgical CenterComment on above: Performed By: #### CARMEN, 09387-5, BMP ####[facility] ([id number])[address] [place] [address], [place] [address]JUGFYRIQ NEUTROPHIL5.5 X10E9/LNormal1.5-6.6ProWhite Rock Medical CenterComment on above: Performed By: #### CARMEN 33265-7, BMP ####[facility] ([id number])[address] [place] [address] 94979Odyjhohtc/100 WBC (Bld)0.8 %NormalProWhite Rock Medical CenterComment on above:Performed By: #### CARMEN, 59535-8, BMP ####[facility] ([id number])[address] [place] [address] 74[address]Mczyhcudcnl (Bld) [#/Vol]0.2 10*3/uLNormal 0.0-0.4ProWhite Rock Medical CenterComment on above:Performed By: #### CARMEN 02200-8, BMP ####[facility] ([id number])[address] [place] [address] 85582Tpdnihaftsk/100 WBC (Bld)2.2 %NormalProWhite Rock Medical CenterComment on above:Performed By: #### CARMEN 76749-8, BMP ####[facility] ([id number])[address] [place] [address] 43514Gcwefmgywwp distribution width (RBC) [Ratio]15.8 %High 11.5-15.0ProWhite Rock Medical CenterComment on above:Performed By: #### CARMEN 36483-4, BMP ####[facility] ([id number])[address] [place] [address] 39821Vxpwavylty (Bld) [Volume fraction]32.2 %Zem27-[address] HelenaComment on above:Performed By: #### CARMEN 39359-0, BMP ####[facility] ([id number])[address] [place] [address] 58636Lnwohrbsku (Bld) [Mass/Vol]10.7 g/dLLow11.7-15.5PTriHealth Bethesda Butler HospitalComment on above:Performed By: #### CARMEN 93184-7, BMP ####[facility] ([id number])[address] [place] [address] 35770Vajvlardefx (Bld) [#/Vol]1.9 10*3/uLNormal1.0-3.5PTriHealth Bethesda Butler HospitalComment on above:Performed By: #### CARMEN 31896-2, BMP ####[facility] ([id number])[address] [place] [address] 90638Aipmaxmaebh/100 WBC (Bld)22.1 %NormalProWhite Rock Medical CenterComment on above:Performed By: #### CARMEN 32416-3, BMP ####[facility] ([id number])[address] [place] [address] 88354KJT (RBC) [Entitic mass]28.1 opPujpah34-87SrsTklonzWhite Rock Medical CenterComment on above:Performed By: #### CARMEN, 88284-2, BMP ####[facility] ([id number])[address] [place] [address] 37747TXQR (RBC) [Mass/Vol]33.1 g/uZSwazjk22-51VhtJagzwqWhite Rock Medical CenterComment on above: Performed By: #### CARMEN, 70370-9, BMP ####[facility] ([id number])[address] [place] [address] 88470HAE (RBC) [Entitic vol]85 tLMtqigt29-665FjpQapkit Fremont HospitalComment on above: Performed By: #### CARMEN, 59069-1, BMP ####[facility] ([id number])[address] [place] [address] 71425Cgvsukjse (Bld) [#/Vol]1.0 10*3/uLHigh0-0.9Mer[facility] HospitalComment on above:Performed By: #### CARMEN, 27081-5, BMP ####[facility] ([id number])[address] [place] [address] 10911Bbbpkdmyr/100 WBC (Bld)11.6 %Normal ProMAdventist Health St. HelenaComment on above:Performed By: #### CARMEN, 55059-6, BMP ####[facility] ([id number])[address] [place] [address] 85115Hkxoadrqmhv/100 WBC (Bld)63.3 %NormalProWhite Rock Medical CenterComment on above:Performed By: #### CARMEN, 79952-3, BMP ####[facility] ([id number])[address] [place] [address] 09496Sbexdxos mean volume (Bld) [Entitic vol]8.4 fLNormal7-12Pro[facility] CenterComment on above:Performed By: #### CARMEN, 23920-1, BMP ####[facility] ([id number])[address] [place] [address] 78006Ogfewjddp (Bld) [#/Vol]368 10*3/oNJaajae665-232JwyEhtwzfMercy Health Allen Hospital Comment on above:Performed By: #### CARMEN, 80757-8, BMP ####[facility] ([id number])[address] [place] [address] 04348UVA COUNT3.79 X10E12/LLow3.80-5.20[facility] HospitalComment on above: Performed By: #### CARMEN, 05976-9, BMP ####[facility] ([id number])[address] [place] [address] 46860XHD (Bld) [#/Vol] 8.7 10*3/uLNormal4.0-11.0Mer[facility] HospitalComment on above:Performed By: #### CARMEN, 72415-4, BMP ####[facility] ([id number])[address] [place] [address] 73772BS ABDOMEN AND PELVIS WO CONTon 84-78-9307DV ABDOMEN AND PELVIS WO CONTNormalProWhite Rock Medical CenterTroponin I.cardiac High sensitivity method [Mass/Vol]on HOUR TROP I, HIGH YVKLZVNBYQZ44 ng/LHigh<16ProWhite Rock Medical CenterComment on above:Result Comment: Elevations of hs-Troponin may be due to causesother than myocardial ischemia.Recommend serial hs-Troponin testing be performed.For the initial evaluation and management of chestpain patients, refer to the algorithms linked below.Emergency Patient:[email or web address]:[email or web address] By: #### 21408-1 ####[facility] ([id number])[address] [place] [address] 47481CASXUMPX I, HIGH RONOSASUDNC30 ng/LHigh<16ProWhite Rock Medical CenterComment on above:Result Comment: Elevations of hs-Troponin may be due to causesother than myocardial ischemia.Recommend serial hs-Troponin testing be performed.For the initial evaluation and management of chestpain patients, refer to the algorithms linked below.Emergency Patient:[email or web address]:[email or web address] By: #### CBCA, 05248-9, BMP ####[facility] ([id number])[address] [place] [address] 33816OFXZR CULTUREon 96-45-7243Rwlaczpq identified Cx Nom (U) CULTURE RESULTS MULTIPLE SPECIES PRESENT. PROBABLE COLLECTION CONTAMINATION. SUGGEST REPEAT SPECIMEN.NormalMercy Health Allen HospitalComment on above:Performed By: #### 630-4 ####[facility] ([id number])[address], [address]TO[facility], [place] [address]IXI MACROSCOPIC NURon 22-27-9937SVCCNQCXV NURNegativeNormal NEGProWhite Rock Medical CenterComment on above:Performed By: #### NUM ####[facility] ([id number])[address] [place] [address] 11521RKEKB/HGB NURSmallAbnormalNEGTrinity Health System West Campus HospitalComment on above: Performed By: #### NUM ####[facility] ([id number])[address] [place] [address] [place] [address]JHPOWRO NURNegativeNormalNEGProWhite Rock Medical CenterComment on above:Performed By: #### NUM ####[facility] ([id number])[address] [place] [address] [place] 207[address]RCLIZKE NURTraceAbnormalNEGProWhite Rock Medical CenterComment on above:Performed By: #### NUM ####[facility] ([id number])[address] [place] [address] 10197TTIZQLPQA ESTERASE NURLargeAbnormalNEGProWhite Rock Medical CenterComment on above:Performed By: #### NUM ####[facility] ([id number])[address] [place] [address] [place] [address]TVLWLEU MARYJO PositiveAbnormalNEGProWhite Rock Medical CenterComment on above:Performed By: #### NUM ####[facility] ([id number])[address] [place] [address] [place] 64[address]OO NUR8.8Ylqxwv1.0-8.5Pro[facility] Surgical CenterComment on above:Performed By: #### NUM ####[facility] ([id number])[address] [place] [address] [place] [address]WOKFWDI MARYJO>=300AbnormalNEG [facility] CenterComment on above:Performed By: #### NUM ####[facility] ([id number])[address] [place] [address] [place] 232[address]KYGZOXGN GRAVITY NUR1.462Aurzwc4.003-1.035ProWhite Rock Medical CenterComment on above:Performed By: #### NUM ####[facility] ([id number])[address] [place] [address] [place] 68[address]NTHFOUVNABSF NUR0.2 eu/dLNormal <1.1PTriHealth Bethesda Butler HospitalComment on above:Performed By: #### NUM ####[facility] ([id number])[address] [place] [address], [place], [place] [address]UXHT urinalysis dipstick onlyon 06-08-0315Shvydicyoi (U)cloudy [facility] SystemExternal Poct Urine BilirubinNegativeProMedica Health SystemExternal Poct Urine BloodTracePOchsner Medical Center Health SystemExternal Poct Urine ColoryellowProMedica Health SystemExternal Poct Urine GlucoseNegativeProMedica Health SystemExternal Poct Urine KetonesNegativeProMedica Health SystemExternal Poct Urine Leukocyte Esterase2+[facility]External Poct Urine NitritePositiveProMedica Health SystemExternal Poct Urine Ph6.5[facility] SystemExternal Poct Urine ProteinTracePOchsner Medical Center Health SystemExternal Poct Urine Specific Gravity1.020[facility] SystemExternal Poct Urine Urobilinogen0.2 [facility] SystemProMedica Health SystemCT CARDIAC W C STC MORP CARD ONLY on [id number] CARDIAC W C STC MORP CARD ONLYEXAMINATION: [...] valve measurements were analyzed and provided by [employer] and are reported separately to the cardiology department. 3. Severe triple-vessel coronary artery calcifications. 4. Small sliding hiatal hernia. Interpreted by: Ning Parra MD Signed by: Ning Parra MD 01/18/23 Final resultNormalMercy Anaheim Regional Medical CenterCTA CHEST ABDOMEN PELVIS W CONTRASTon [id number] CHEST ABDOMEN PELVIS W CONTRASTEXAMINATION: CTA OF [...] with a couple of ill-defined sclerotic foci. [employer] shunt tubing in the right neck and [...] adenopathy. Very small fat containing umbilical hernia. [employer] shunt tubing enters the abdomen in the [...] pelvis which may be related to the [employer] shunt catheter. There is a cystic left [...] measurements for planned (more content not included)...NormalMercy Anaheim Regional Medical CenterNo acute abnormality identified on CTA of [...] recommended. 5 mm subpleural right lung nodule. [employer] shunt noted. Small hiatal hernia. The findings [...] Findings Committee. J Am Janel Radiol 2010;7:754-773 [facility] RIS CONSOLIDATEDEXAMINATION: CTA OF THE [...] with a couple of ill-defined sclerotic foci. [employer] shunt tubing in the right neck and [...] adenopathy. Very small fat containing umbilical hernia. [employer] shunt tubing enters the abdomen in the [...] pelvis which may be related to the [employer] shunt catheter. There is a cystic left [...] in the left flank and gluteal regions. [facility] Tato Mcdonald MD - 01/15/2023 [...] with a couple of ill-defined sclerotic foci. [employer] shunt tubing in the right neck and [...] adenopathy. Very small fat containing umbilical hernia. [employer] shunt tubing enters the abdomen in the [...] pelvis which may be related to the [employer] shunt catheter. There is a cystic left [...] and gluteal regions. (more content not included)...[employer] Work Phone: cTA CHEST ABDOMEN PELVIS W CONTRASTOrdered By: Tato Syed on [id number] [employer] Work Phone: PULMONARY FUNCTIONon [id number] [id number] PULMONARY FUNCTION PATIENT NAME: CUCA DEE : 1945 MED REC NO: [id number] ROOM: ACCOUNT NO: [id number] ADMIT DATE: 01/13/2023 PROVIDER: Whit Maloney DATE [...] correlation is recommended. WHIT MALONEY [id number] Doc#: [id number] CC:[facility] CenterCTA CHEST ABDOMEN PELVIS W CONTRASTon 81-05-0253Huqtwsozj Study observation (narrative)BON KitOrder Work Phone: poc Glucose Fingerstickon 77-06-9298Ufjhgdx [Mass/Vol] 104 mg/dL65 - 105 mg/dLBON OASIS BEHAV[facility] HEALTH HOSPITALLaroscoBON SECLaroscoBasic Metabolic Panelon 29-91-0551Xgldd gap [Moles/Vol]11 mmol/L9 - 17 mmol/LBON [facility] HOSPITALWhite [facility] Medical HEALTHCalcium [Mass/Vol]9.0 mg/dL8.6 - 10.4 mg/dLBON [facility] HEALTHChloride [Moles/Vol]105 mmol/L98 - 107 mmol/LBON [facility] HEALTHCO2 [Moles/Vol]20 mmol/L20 - 31 mmol/LBON [facility] HEALTHCreatinine [Mass/Vol] 1.04 mg/dLHigh0.50 - 0.90 mg/dLBON KitOrderGFR/1.73 sq M.predicted MDRD (S/P/Bld) [Vol rate/Area]56 mL/min/{1.73_m2}Low- PINFBON KitOrderComment on above: These results are not intended [...] that affects renal tubular secretion. Glucose [Mass/Vol]131 mg/pVYpzm22 - 99 mg/dLBON [facility] Interpretation and review of laboratory resultsAbnormalUVA HEALTH UNIVERSITY HOSPITAL Potassium [Moles/Vol]4.3 mmol/L3.7 - 5.3 mmol/LBON [facility] WESTSodium [Moles/Vol]136 mmol/L135 - 144 mmol/LBON [facility] WESTUrea nitrogen (BldV) [Mass/Vol]17 mg/dL8 - 23 mg/dLBON [facility] HEALTH SERVICESBasic Metabolic Profon 50-98-8652Vjzcv gap [Moles/Vol]11 mmol/LNormal9-17 [facility] HospitalComment on above:Performed By: #### FLORINA BMPX #### [employer] [address] [place] [address] Office Manager Executive Assistant: LANG aWrealcium [Mass/Vol]9.0 mg/dLNormal8.6-10.4[facility] HospitalComment on above:Performed By: #### FLORINA, BMPX #### [employer] [address] [place] [address] Office Manager Executive Assistant: LANG Warehloride [Moles/Vol]105 mmol/VHotyou70-423PkqyaMercy Health Willard HospitalComment on above:Performed By: #### FLORINA, BMPX #### [employer] [address] [place] [address] Office Manager Executive Assistant: LANG WareO2 [Moles/Vol]20 mmol/PHthcwn22-05HxaseMercy Health Willard HospitalComment on above:Performed By: #### FLORINA, BMPX #### [employer] [address] [place] [address] Office Manager Executive Assistant: LANG Warereatinine [Mass/Vol]1.04 mg/dLHigh0.50-0.90 [facility] HospitalComment on above:Performed By: #### FLORINA, BMPX #### [address] [address] Office Manager Executive Assistant: Luis Solis MDGFR/1.73 sq M.predicted among non-blacks MDRD (S/P/Bld) [Vol rate/Area]56 mL/min/{1.73_m2}Low>60[facility] HospitalComment on above:Result Comment: These results are [...] tubular secretion.Performed By: #### FLORINA BMPX #### [facility] [employer] [address] [place] [address] Office Manager Executive Assistant: Luis Solis MDGlucose [Mass/Vol]131 mg/iNJhpa50-66YchtjSanta Ynez Valley Cottage HospitalComment on above:Performed By: #### FLORINA BMPX #### [address] [address] Office Manager Executive Assistant: ANDRE Wareotassium [Moles/Vol]4.3 mmol/LNormal3.7-5.3 [facility] HospitalComment on above:Performed By: #### FLORINA, BMPX #### [facility] [employer] [address] [place] [address] Office Manager Executive Assistant: Luis Solis MDSodium [Moles/Vol]136 mmol/YDicbpy123-593JwxpvMercy Health Willard HospitalComment on above:Performed By: #### FLORINA, BMPX #### [address] [address] Office Manager Executive Assistant: Luis Solis MDUrea nitrogen [Mass/Vol]17 mg/dLNocolumbus regional healthcare system8-23[facility] Willard HospitalComment on above:Performed By: #### FLORINA, BMPX #### [employer] [address] [place] [address] [phone] Office Manager Executive Assistant: Luis Solis MDHemoglobin and Hematocriton 00-04-0448Nyrsxkjrwk (Bld) [Volume fraction]25.5 %Low36.3 - 47.1 %UV[facility]ALTH UNIVERSITY HOSPITALHemoglobin (Bld) [Mass/Vol]7.9 g/dLLow11.9 - 15.1 g/dLBON [facility] Interpretation and review of laboratory resultsAbnormalBON [facility] BON [facility] WESTHgb/Hcton 29-54-7664Ihqauohhyb (Bld) [Volume fraction] 25.5 %Low36.3-47.1MSanta Ynez Valley Cottage HospitalComment on above:Performed By: #### FLORINA, BMPX #### [employer] [address] [place] [address] [phone] Office Manager Executive Assistant: Luis Solis MDHemoglobin (Bld) [Mass/Vol]7.9 g/dLLow11.9-15.1 [facility] HospitalComment on above:Performed By: #### FLORINA, BMPX #### [employer] [address] [place] [address] [phone] Office Manager Executive Assistant: Luis Solis MDLaboratory - Blood bankon 70-71-4134Njoay product type Nom (BPU)Leukocyte Reduced Red CellBON [facility]STNo Panel Informationon 34-97-4991Zlldp Bank ISBT Product Blood [id number] [facility]STBlood Bank Unit Type and RhNegativeBON [facility] WESTCrossmatch ResultCOMPATIBLEUVA HEALTH UNIVERSITY HOSPITALDispense StatusTRANSFUSEDBON [facility]STTransfusion StatusOK TO TRANSFUSEBON [facility]STUnit Ywjhaze5BZC [facility]STPO Glucose Fingerstickon 19-41-2863Jjitozj [Mass/Vol]105 mg/dL65 - 105 mg/dLBON [facility]Y HEALTHBON [facility]Y HEALTHGlucose [Mass/Vol]119 mg/cICrke37 - 105 mg/dLBON [facility] Interpretation and review of laboratory resultsAbnormalBON [facility] BON [facility] HEALTHGlucose [Mass/Vol]159 mg/cLClzo50 - 105 mg/dLBON [facility] HOSPITALY HEALTHInterpretation and review of laboratory resultsAbnormalBON [facility]Y HEALTHBON [facility] HEALTHGlucose [Mass/Vol]70 mg/dL65 - 105 mg/dLBON [facility]-FAIRHILLAugusto HEALTHBON [facility] HEALTHGlucose [Mass/Vol]41 mg/dLLow65 - 105 mg/dLBON [facility] HEALTHComment on above:Critical NotedInterpretation and review of laboratory resultsAbnormalBON [facility]-FAIRHILLAugusto HEALTHBON [facility] HEALTHTYPE AND SCREENon 25-25-5868XQF/RhNegativeBON [facility] Arm Band [id number] [facility] HEALTHBlood Bank Blood Product Expiration [id number] [facility] HEALTHBlood Bank Blood Product Expiration [id number] [facility] HEALTHBlood Bank Blood Product Expiration [id number] [facility] HEALTHBlood product unit ID (Dose) [#][id number] [facility] HEALTHBlood product unit ID (Dose) [#] [id number] [facility] HEALTHBlood product unit ID (Dose) [#] [id number] [facility] HEALTHExpiration Date12/10/2022,2359BON [facility] HEALTHProduct Code Blood [id number] [facility] HEALTHProduct Code Blood [id number] [facility] HEALTHProduct Code Blood [id number] [facility] HEALTHUnit Issue Date/[id number] [facility] HEALTHUnit Issue Date/[id number] [facility] HEALTHUnit Issue Date/Time [id number] [facility]FAIRHILLY HEALTHBON [facility] HEALTHBasic Metab w/rfx MG on 87-74-4424Utrwz gap [Moles/Vol]10 mmol/LNormal9-17[facility] HospitalComment on above:Performed By: #### FLORINA, BMPX #### [facility] [address] [place] [address] Office Manager Executive Assistant: LANG Warealcium [Mass/Vol]8.6 mg/dLNormal8.6-10.4[facility] HospitalComment on above:Performed By: #### FLORINA, BMPX #### [facility] [address] [place] [address] Office Manager Executive Assistant: LANG Warehloride [Moles/Vol]106 mmol/LWpqhqt83-522KdfapMercy Health Willard HospitalComment on above:Performed By: #### FLORINA, BMPX #### [facility] [address] [place] [address] Office Manager Executive Assistant: Luis Solis MDCO2 [Moles/Vol]21 mmol/BXwgnmn08-32JpezpMercy Health Willard HospitalComment on above:Performed By: #### FLORINA, BMPX #### [facility] [address] [place] [address] Office Manager Executive Assistant: LANG Warereatinine [Mass/Vol]1.33 mg/dLHigh0.50-0.90 [facility] HospitalComment on above:Performed By: #### FLORINA, BMPX #### [facility] [employer] [address] [place] [address] Office Manager Executive Assistant: Luis Solis MDGFR/1.73 sq M.predicted among non-blacks MDRD (S/P/Bld) [Vol rate/Area]41 mL/min/{1.73_m2}Low>60[facility] HospitalComment on above:Result Comment: Effective Aug 17, [...] tubular secretion.Performed By: #### FLORINA BMPX #### [place] [address] Office Manager Executive Assistant: Luis Solis MDGlucose [Mass/Vol]102 mg/yCYmer88-23IflbiSanta Ynez Valley Cottage HospitalComment on above:Performed By: #### FLORINA, BMPX #### [place] [address] Office Manager Executive Assistant: ANDRE Wareotassium [Moles/Vol]4.1 mmol/LNormal3.7-5.3 [facility] HospitalComment on above:Performed By: #### FLORINA, BMPX #### [place] [address] Office Manager Executive Assistant: JOHNATHAN Wareodium [Moles/Vol]137 mmol/MFjkcoi725-590CatdaMercy Health Willard HospitalComment on above:Performed By: #### FLORINA BMPX #### [address] [address] Office Manager Executive Assistant: Luis Solis MDUrea nitrogen [Mass/Vol]19 mg/dLNormal8-23[facility] HospitalComment on above:Performed By: #### FLORINA BMPX #### [place] [address] Office Manager Executive Assistant: Luis Solis MDBamcdowell arh hospital Metabolic Panel w/ Reflex to MGon 41-69-0832Naazo gap [Moles/Vol]10 mmol/L9 - 17 mmol/LBON [facility] Calcium [Mass/Vol]8.6 mg/dL8.6 - 10.4 mg/dLBON [facility] HEALTHChloride [Moles/Vol]106 mmol/L98 - 107 mmol/LBON [facility] HEALTHCO2 [Moles/Vol]21 mmol/L20 - 31 mmol/LBON [facility] WESTCreatinine [Mass/Vol]1.33 mg/dLHigh 0.50 - 0.90 mg/dLBON [facility] WESTGFR/1.73 sq M.predicted MDRD (S/P/Bld) [Vol rate/Area]41 mL/min/{1.73_m2}Low- PINFBON [facility] WESTComment on above: Effective Aug 17, 2022 These [...] that affects renal tubular secretion. Glucose [Mass/Vol]102 mg/fQLghl86 - 99 mg/dLBON [facility] Interpretation and review of laboratory resultsAbWinchester Medical Center Potassium [Moles/Vol]4.1 mmol/L3.7 - 5.3 mmol/LBON [facility] WESTSodium [Moles/Vol]137 mmol/L135 - 144 mmol/LBON [facility] WESTUrea nitrogen (BldV) [Mass/Vol]19 mg/dL8 - 23 mg/dLBON [facility]RE[facility] REGIONAL HEALTH SERVICESHemoglobin and Hematocriton 28-00-4521Rpltolzcqk (Bld) [Volume fraction] 25.6 %Low36.3 - 47.1 %[facility]IVERSITY HOSPITALHemoglobin (Bld) [Mass/Vol]8.0 g/dLLow11.9 - 15.1 g/dLBON [facility] WESTInterpretation and review of laboratory resultsAbnormHenrico Doctors' Hospital—[facility] Hematocrit (Bld) [Volume fraction]23.5 %Low36.3 - 47.1 %[facility] Hemoglobin (Bld) [Mass/Vol]7.1 g/dLLow11.9 - 15.1 g/dLBON [facility] Interpretation and review of laboratory resultsAbWinchester Medical Center BON [facility] WESTHgb/Hcton 32-66-7589Vouukyglxq (Bld) [Volume fraction] 25.6 %Low36.3-47.1MSanta Ynez Valley Cottage HospitalComment on above:Performed By: #### HH, BMPX #### [facility] [address] [place], [place] [phone] Office Manager Executive Assistant: Luis Solis MDHemoglobin (Bld) [Mass/Vol]8.0 g/dLLow11.9-15.1 [facility] HospitalComment on above:Performed By: #### FLORINA, BMPX #### [facility] [address] [place] [address] [phone] Office Manager Executive Assistant: Luis Solis MDHematocrit (Bld) [Volume fraction]23.5 %Low 36.3-47.1MSanta Ynez Valley Cottage HospitalComment on above:Performed By: #### FLORINA, BMPX #### [facility] [address] [place] [address] [phone] Office Manager Executive Assistant: Luis Solis MDHemoglobin (Bld) [Mass/Vol]7.1 g/dLLow11.9-15.1 [facility] HospitalComment on above:Performed By: #### FLORINA, BMPX #### [facility] [address] [place] [phone] Office Manager Executive Assistant: POLO Ware Glucose Fingerstickon 47-59-3941Umtjspk [Mass/Vol]143 mg/lRIftr67 - 105 mg/dLBON [facility] WESTInterpretation and review of laboratory resultsAbnormalJOHN RANDOLPH MEDICAL CENTERGlucose [Mass/Vol]96 mg/dL65 - 105 mg/dLBON [facility]ION[facility] HEALTH SERVICESGlucose [Mass/Vol]114 mg/sVSuhf62 - 105 mg/dLBON [facility] WESTInterpretation and review of laboratory resultsAbnormalJOHN RANDOLPH MEDICAL CENTERGlucose [Mass/Vol]111 mg/nUMxkt89 - 105 mg/dLBON [facility] WESTInterpretation and review of laboratory results [facility] HospitalBON [facility] WESTBON [facility] HEALTHType + Screenon 82-93-9279Svvw + ScreenSample Expiration 12/10/2022,2359 Arm Band Number [id number] ABO/Rh(D) O NEGATIVE Antibody Screen NEGATIVE Unit Number [id number] Blood Component Type Leukocyte Reduced Red Cell Unit Division 00 Status of Unit TRANSFUSED Transfusion Status OK TO TRANSFUSE Crossmatch Result COMPATIBLE Unit Number [id number] Blood Component Type Leukocyte Reduced Red Cell Unit Division 00 Status of Unit TRANSFUSED Transfusion Status OK TO TRANSFUSE Crossmatch Result COMPATIBLE Unit Number [id number] Blood Component Type Leukocyte Reduced Red Cell Unit Division 00 Status of Unit TRANSFUSED Transfusion Status OK TO TRANSFUSE Crossmatch Result COMPATIBLENormalMercy Health Willard HospitalComment on above:Performed By: #### MONA, BMPX #### [employer] [address] [place], [place] [phone] Office Manager Executive Assistant: Noni Ware Metab w/rfx MGon 58-25-9746Sbmyi gap [Moles/Vol]9 mmol/LNormal9-17[facility] HospitalComment on above: Performed By: #### MONA BMPX #### [employer] [address] [place] [address] Office Manager Executive Assistant: LANG Warealcium [Mass/Vol]8.6 mg/dLNormal8.6-10.4[facility] HospitalComment on above:Performed By: #### MONA, BMPX #### [employer] [address] [place], [place] [phone] Office Manager Executive Assistant: LANG Warehloride [Moles/Vol]106 mmol/LQtzgtf47-163PzreuMercy Health Willard HospitalComment on above:Performed By: #### MONA, BMPX #### [employer] [address] [place] [address] Office Manager Executive Assistant: LANG WareO2 [Moles/Vol]24 mmol/WIxtcni74-25NppviMercy Health Willard HospitalComment on above:Performed By: #### MONA BMPX #### [facility] [employer] [address] [place] [address] Office Manager Executive Assistant: LANG Warereatinine [Mass/Vol]1.33 mg/dLHigh0.50-0.90 [facility] HospitalComment on above:Performed By: #### MONA, BMPX #### [address] [address] Office Manager Executive Assistant: Luis Solis MDGFR/1.73 sq M.predicted among non-blacks MDRD (S/P/Bld) [Vol rate/Area]41 mL/min/{1.73_m2}Low>60[facility] HospitalComment on above:Result Comment: Effective Aug 17, [...] tubular secretion.Performed By: #### MONA BMPX #### [facility] [employer] [address] [place] [address] Office Manager Executive Assistant: Luis Solis MDGlucose [Mass/Vol]160 mg/vHImqp41-90WyctpSanta Ynez Valley Cottage HospitalComment on above:Performed By: #### WILSON DUNNX #### [facility] [employer] [address] [place] [address] Office Manager Executive Assistant: ANDRE Wareotassium [Moles/Vol]4.4 mmol/LNormal3.7-5.3 [facility] HospitalComment on above:Performed By: #### MONA, BMPX #### [address] [address] Office Manager Executive Assistant: JOHNATHAN Wareodium [Moles/Vol]139 mmol/ULrfbjh506-204DvxfzMercy Health Willard HospitalComment on above:Performed By: #### WILSON DUNNX #### [facility] [address] [place], [place] [phone] Office Manager Executive Assistant: Luis Solis MDUrea nitrogen [Mass/Vol]21 mg/dLNormal8-23[facility] HospitalComment on above:Performed By: #### MONA BMPX #### [facility] [address] [place], [place] [phone] Office Manager Executive Assistant: Luis Solis MDBasic Metabolic Panelon 30-86-6319Yemlw gap [Moles/Vol]7 mmol/LLow9 - 17 mmol/LBON [facility] HEALTHCalcium [Mass/Vol]8.5 mg/dLLow8.6 - 10.4 mg/dLBON SECLaroscoChloride [Moles/Vol]110 mmol/L High98 - 107 mmol/LBON SECLaroscoCO2 [Moles/Vol]25 mmol/L20 - 31 mmol/LBON SECLaroscoCreatinine [Mass/Vol]1.43 mg/dLHigh0.50 - 0.90 mg/dLBON KitOrderGFR/1.73 sq M.predicted MDRD (S/P/Bld) [Vol rate/Area]38 mL/min/{1.73_m2}Low- PINFBON SECLaroscoComment on above: Effective Aug 17, 2022 These [...] that affects renal tubular secretion. Glucose [Mass/Vol]124 mg/hORwww23 - 99 mg/dLBON KitOrder Interpretation and review of laboratory resultsAbnormalBON KitOrder Potassium [Moles/Vol]4.7 mmol/L3.7 - 5.3 mmol/LBON [facility] WESTSodium [Moles/Vol]142 mmol/L135 - 144 mmol/LBON [facility] WESTUrea nitrogen (BldV) [Mass/Vol]23 mg/dL8 - 23 mg/dLBON [facility] HEALTH SERVICESBasic Metabolic Panel w/ Reflex to MGon 64-80-2829Kgjpr gap [Moles/Vol]9 mmol/L9 - 17 mmol/LBON [facility] HEALTHCalcium [Mass/Vol]8.6 mg/dL8.6 - 10.4 mg/dLBON [facility] WESTChloride [Moles/Vol]106 mmol/L98 - 107 mmol/LBON [facility] WESTCO2 [Moles/Vol]24 mmol/L20 - 31 mmol/LBON [facility] WESTCreatinine [Mass/Vol]1.33 mg/dLHigh0.50 - 0.90 mg/dLBON [facility] WESTGFR/1.73 sq M.predicted MDRD (S/P/Bld) [Vol rate/Area]41 mL/min/{1.73_m2} Low- PINFBON [facility] WESTComment on above: Effective Aug 17, 2022 These [...] that affects renal tubular secretion. Glucose [Mass/Vol]160 mg/iJLhnc05 - 99 mg/dLBON [facility] Interpretation and review of laboratory resultsAbnormalUVA [facility]ALTH [facility]ITAL Potassium [Moles/Vol]4.4 mmol/L3.7 - 5.3 mmol/LBON [facility] WESTSodium [Moles/Vol]139 mmol/L135 - 144 mmol/LBON [facility]LEVEL[facility] WESTUrea nitrogen (BldV) [Mass/Vol]21 mg/dL8 - 23 mg/dLBON [facility]REEM[facility] REGIONAL HEALTH SERVICESBasic Metabolic Profon 16-25-6101Jhkqb gap [Moles/Vol]7 mmol/LLow9-17[facility] HospitalComment on above:Performed By: #### BMP, CBC #### [facility] [address] [place] [address] Office Manager Executive Assistant: Luis Solis MDCalcium [Mass/Vol]8.5 mg/dLLow8.6-10.4[facility] HospitalComment on above:Performed By: #### BMP, CBC #### [facility] [address] [place] [address] Office Manager Executive Assistant: Luis Solis MDChloride [Moles/Vol]110 mmol/XVsks79-820CpzlbMercy Health Willard HospitalComment on above:Performed By: #### BMP, CBC #### [facility] [address] [place] [address] Office Manager Executive Assistant: Luis Solis MDCO2 [Moles/Vol]25 mmol/YQrrexz43-14CrpnhMercy Health Willard HospitalComment on above:Performed By: #### BMP, CBC #### [facility] [address] [place] [address] Office Manager Executive Assistant: LANG Warereatinine [Mass/Vol]1.43 mg/dLHigh0.50-0.90 [facility] HospitalComment on above:Performed By: #### BMP, CBC #### [facility] [employer] [address] [place] [address] Office Manager Executive Assistant: Luis Solis MDGFR/1.73 sq M.predicted among non-blacks MDRD (S/P/Bld) [Vol rate/Area]38 mL/min/{1.73_m2}Low>60[facility] HospitalComment on above:Result Comment: Effective Aug 17, [...] tubular secretion.Performed By: #### WILSON, CBC #### [facility] [employer] [address] [place] [phone] Office Manager Executive Assistant: Luis Solis MDGlucose [Mass/Vol]124 mg/oXAdty49-64ZmiomSanta Ynez Valley Cottage HospitalComment on above:Performed By: #### BMP, CBC #### [facility] [address] [place] [address] Office Manager Executive Assistant: ANDRE Wareotassium [Moles/Vol]4.7 mmol/LNormal3.7-5.3 [facility] HospitalComment on above:Performed By: #### WILSON, CBC #### [place] [address] Office Manager Executive Assistant: JOHNATHAN Wareodium [Moles/Vol]142 mmol/GGjiwxk286-493QldydMercy Health Willard HospitalComment on above:Performed By: #### WILSON, CBC #### [place] [address] Office Manager Executive Assistant: Luis Solis MDUrea nitrogen [Mass/Vol]23 mg/dLNormal8-23[facility] HospitalComment on above:Performed By: #### WILSON, CBC #### [place] [address] Office Manager Executive Assistant: Emilio Ware 41-64-0540Nwnzukhfbsl distribution width (RBC) [Ratio]17.8 %High11.8-14.4[facility] HospitalComment on above:Performed By: #### WILSON, CBC #### [facility] [employer] [address] [place] [phone] Office Manager Executive Assistant: Luis Solis MDHematocrit (Bld) [Volume fraction]22.0 %Low 36.3-47.1MSanta Ynez Valley Cottage HospitalComment on above:Performed By: #### BMP, CBC #### [address] [address] Office Manager Executive Assistant: Luis Solis MDHemoglobin (Bld) [Mass/Vol]6.6 g/dLCritically low11.9-15.1MSanta Ynez Valley Cottage HospitalComment on above:Performed By: #### BMP, CBC #### [place] [address] Office Manager Executive Assistant: XOCHILT WareCH (RBC) [Entitic mass]27.5 ioRpwpdu87.2-33.5 [facility] HospitalComment on above:Performed By: #### BMP, CBC #### [place] [address] Office Manager Executive Assistant: XOCHILT WareCHC (RBC) [Mass/Vol]30.0 g/lPAxyoui65.4-34.8 [facility] HospitalComment on above:Performed By: #### BMP, CBC #### [place] [address] Office Manager Executive Assistant: XOCHILT WareCV (RBC) [Entitic vol]91.7 vWLaqnmh01.6-102.9 [facility] HospitalComment on above:Performed By: #### BMP, CBC #### [place] [address] Office Manager Executive Assistant: Luis Solis MDNRBC Automated0.0 per 100 WBCNormal0.0[facility] HospitalComment on above:Performed By: #### BMP, CBC #### [place] [address] Office Manager Executive Assistant: ANDRE Warelatelet mean volume (Bld) [Entitic vol]10.3 fL Normal8.1-13.5[facility] HospitalComment on above:Performed By: #### BMP, CBC #### [facility] [address] [place] [address] Office Manager Executive Assistant: Danny Waretelets (Bld) [#/Vol]250 10*3/mWHnznyy675-825 [facility] HospitalComment on above:Performed By: #### BMP, CBC #### [facility] [address] [place] [address] Office Manager Executive Assistant: Luis Solis MDRBC (Bld) [#/Vol]2.40 10*6/uLLow3.95-5.11[facility] HospitalComment on above:Performed By: #### BMP, CBC #### [facility] [address] [place] [address] Office Manager Executive Assistant: Luis Solis MDWBC (Bld) [#/Vol]9.2 10*3/uLNormal3.5-11.3MSanta Ynez Valley Cottage HospitalComment on above:Performed By: #### BMP, CBC #### [facility] [address] [place] [address] Office Manager Executive Assistant: Luis Solis MDHematocrit (Bld) [Volume fraction]22.0 %Low36.3 - 47.1 %[facility] HOSPITALHemoglobin (Bld) [Mass/Vol]6.6 g/dLCritically low11.9 - 15.1 g/dLBON [facility] WESTInterpretation and review of laboratory resultsAbnormalBON [facility] EASTH (RBC) [Entitic mass]27.5 pg25.2 - 33.5 pgBON REGENC[facility]OSPITAL CLEVELAND EASTHC (RBC) [Mass/Vol]30.0 g/dL28.4 - 34.8 g/dLBON REGENCY HOSPITAL CLEVELAND EASTV (RBC) [Entitic vol]91.7 fL82.6 - 102.9 fL [facility] [facility]ITALNRBC Automated0.00.0 per 100 WBCBON [facility] Platelet distribution width (Bld) [Ratio]17.8 %High11.8 - 14.4 %[facility] HOSPITALPlatelet mean volume (Bld) [Entitic vol]10.3 fL8.1 - 13.5 fLPOPLAR SPRINGS HOSPITAL HEALTHPlatelets (Bld) [#/Vol]250 10*3/[facility] RBC (Bld) [#/Vol]2.40 10*6/uLLow3.95 - 5.11 m/[facility] HealthWBC (Bld) [#/Vol]9.2 10*3/uLJOHN RANDOLPH [facility]ICAL [facility]ENTER Hemoglobin and Hematocriton 20-48-7569Uyycrijkbt (Bld) [Volume fraction]24.4 % Low36.3 - 47.1 %[facility] HOSPITALHemoglobin (Bld) [Mass/Vol]7.4 g/dLLow 11.9 - 15.1 g/dLBON [facility] HEALTHInterpretation and review of laboratory resultsAbnormInova Loudoun Hospital HEALTHHematocrit (Bld) [Volume fraction]24.6 %Low36.3 - 47.1 %[facility] HOSPITALHemoglobin (Bld) [Mass/Vol]7.7 g/dLLow11.9 - 15.1 g/dLBON [facility] HEALTHInterpretation and review of laboratory resultsAbnormInova Loudoun Hospital HEALTHHematocrit (Bld) [Volume fraction]22.9 %Low36.3 - 47.1 %[facility] HOSPITALHemoglobin (Bld) [Mass/Vol]7.6 g/dLLow11.9 - 15.1 g/dLBON [facility] HEALTHInterpretation and review of laboratory resultsAbnormInova Loudoun Hospital HEALTHHematocrit (Bld) [Volume fraction]21.9 %Low36.3 - 47.1 %[facility]STHemoglobin (Bld) [Mass/Vol]6.5 g/dLCritically low 11.9 - 15.1 g/dLBON [facility] HEALTHInterpretation and review of laboratory resultsAbnormalJOHN RANDOLPH MEDICAL CENTERHgb/Hcton 62-24-1987Ttflwpxzrk (Bld) [Volume fraction]24.4 %Low36.3-47.1[facility] Medical CenterComment on above:Performed By: #### REJEC, BMPX #### [employer] [address] [place] [address] Office Manager Executive Assistant: Luis Solis MDHemoglobin (Bld) [Mass/Vol]7.4 g/dLLow11.9-15.1 [facility]ard HospitalComment on above:Performed By: #### REJEC, BMPX #### [facility] [address] [place] [address] Office Manager Executive Assistant: Luis Solis MDHematocrit (Bld) [Volume fraction]24.6 %Low 36.3-47.1[facility] Medical CenterComment on above:Performed By: #### REJEC, BMPX #### [facility] [employer] [address] [place] [address] Office Manager Executive Assistant: Luis Solis MDHemoglobin (Bld) [Mass/Vol]7.7 g/dLLow11.9-15.1 [facility] HospitalComment on above:Performed By: #### REJEC, BMPX #### [facility] [address] [place] [address] Office Manager Executive Assistant: Luis Solis MDHematocrit (Bld) [Volume fraction]22.9 %Low 36.3-47.1MercPublic Health Service HospitalComment on above:Performed By: #### REJEC, BMPX #### [facility] [employer] [address] [place] [address] Office Manager Executive Assistant: Luis Solis MDHemoglobin (Bld) [Mass/Vol]7.6 g/dLLow11.9-15.1 [facility] HospitalComment on above:Performed By: #### REJEC, BMPX #### [facility] [address] [place] [address] Office Manager Executive Assistant: Luis Solis MDHematocrit (Bld) [Volume fraction]21.9 %Low 36.3-47.1MSanta Ynez Valley Cottage HospitalComment on above:Performed By: #### HH #### [facility] [address] [place] [address] Office Manager Executive Assistant: Luis Solis MDHemoglobin (Bld) [Mass/Vol]6.5 g/dLCritically low11.9-15.1MSanta Ynez Valley Cottage HospitalComment on above:Performed By: #### HH #### [facility] [address] [place] [address] Office Manager Executive Assistant: Luis Solis MDHematocrit (Bld) [Volume fraction]23.7 %Low 36.3-47.1MSanta Ynez Valley Cottage HospitalComment on above:Performed By: #### MONA, BMPX #### [facility] [address] [place] [address] Office Manager Executive Assistant: Luis Solis MDHemoglobin (Bld) [Mass/Vol]7.6 g/dLLow11.9-15.1 [facility] HospitalComment on above:Performed By: #### MONA, BMPX #### [facility] [employer] [address] [place] [address] Office Manager Executive Assistant: POLO Ware Glucose Fingerstickon 71-41-4505Bvfrzxd [Mass/Vol]129 mg/oGBdfd35 - 105 mg/dLBON [facility] WESTInterpretation and review of laboratory resultsAbnormHenrico Doctors' Hospital—Parham CampusGlucose [Mass/Vol]138 mg/cCPwxf00 - 105 mg/dLBON [facility] Interpretation and review of laboratory resultsAbnormBath Community Hospital [facility] WESTGlucose [Mass/Vol]164 mg/vSEnwv53 - 105 mg/dLBON [facility] WESTInterpretation and review of laboratory resultsAbnormHenrico Doctors' Hospital—Parham CampusSPECIMEN REJECTIONon 41-30-9052Duunnex Test CARIL[facility] CLINICReason for RejectionUnable to perform testing: Specimen clotted.[facility] Medical Centerimen source Nom (Unsp spec).BLOOD [facility] MEDICAL CENTERSpecimen Rejectionon 12-08-2022 Reason for rejectionUnable to perform testing: Specimen clotted.[facility] Medical CenterComment on above:Performed By: #### REJEC, BMPX #### [facility] [address] [place] [address] [phone] Office Manager Executive Assistant: La Ware of sample.[facility] Wert County HospitalComment on above:Performed By: #### REJEC, BMPX #### [facility] [address] [place] [address] [phone] Office Manager Executive Assistant: Josie Ware orderedPremier Health Miami Valley HospitalComment on above:Performed By: #### REJEC, BMPX #### [facility] [address] [place] [address] [phone] Office Manager Executive Assistant: Luis Solis MDActcraig clotting timeon 88-07-5549Etucyhfpw Clotting Dbeg927OpylJJZVirginia Hospital CenterInterpretation and review of laboratory resultsAbnormHenrico Doctors' Hospital—Parham Campus CHLORIDE (POC)on 84-45-5716Felizmue [Moles/Vol]107 mmol/L98 - 107 mmol/LBON [facility] C[facility] WESTCatheterization and angiography procedure details panelon 69-29-0558OM[facility] Work Phone: creatinine W/GFR Point of Careon 65-95-6613Iprjfkaunu [Mass/Vol]1.35 mg/dLHigh0.51 - 1.19 mg/dLBON REGENC[facility]ITAL C[facility] WESTeGFR, POC41 mL/min/1.05x9QZC SECOURS MERCY HEALTHComment on above: Effective Aug [...] affects renal tubular secretion. Hemoglobin and Hematocriton 42-97-7483Ddxqmpbfon (Bld) [Volume fraction]23.7 % Low36.3 - 47.1 %[facility] [employer] TBSHemoglobin (Bld) [Mass/Vol]7.6 g/dLLow 11.9 - 15.1 g/dLBON [facility]. [facility] Apixio [facility]FFIN HOSPITALInterpretation and review of laboratory resultsAbnormHenrico Doctors' Hospital—Parham CampusHematocrit (Bld) [Volume fraction]24.9 %Low36.3 - 47.1 %[facility] TBSHemoglobin (Bld) [Mass/Vol]7.2 g/dLLow11.9 - 15.1 g/dLBON OASIS BEHAVIORAL HEALTH HOSPITALLaroscoInterpretation and review of laboratory resultsAbnormHenrico Doctors' Hospital—Parham CampusHemoglobin and hematocrit, bloodon 41-12-8464Ocfxwcqvjm (Bld) [Volume fraction]20 %Low36 - 46 %[facility] [employer] TBSHemoglobin (Bld) [Mass/Vol]6.9 g/dLCritically low12.0 - 16.0 g/dLBON OASIS BEHAVIORAL HEALTH HOSPITALLaroscoInterpretation and review of laboratory resultsAbnormHenrico Doctors' Hospital—Parham CampusHematocrit (Bld) [Volume fraction]30 %Low36 - 46 %[facility] BaseTraceMERCY [facility] Hemoglobin (Bld) [Mass/Vol]10.1 g/dLLow12.0 - 16.0 g/dLBON [facility]. [facility] Prezma Hgb/Hcton 63-11-8894Irxokebwmn (Bld) [Volume fraction]24.9 %Low36.3-47.1[facility] CenterComment on above:Performed By: #### REJEC, BMPX #### [employer] [address] [place] [address] Office Manager Executive Assistant: Luis Solis MDHemoglobin (Bld) [Mass/Vol]7.2 g/dLLow11.9-15.1 [facility] HospitalComment on above:Performed By: #### REJJESE, BMPX #### [facility] [address] [place], [place] [phone] Office Manager Executive Assistant: Luis Solis MDNo Panel Informationon 38-13-2477Pfrtflwyavlgzt and review of laboratory resultsAbnoAvera St. Luke's HospitalC Glucose Fingerstickon 18-50-3607Nowprlr [Mass/Vol]197 mg/dLHigh 65 - 105 mg/dLBON [facility] WESTInterpretation and review of laboratory resultsAbnormHenrico Doctors' Hospital—Parham CampusGlucose [Mass/Vol]101 mg/dL65 - 105 mg/dLBON [facility]RE[facility] HEALTH SERVICESPOCT Glucoseon 48-95-2153Uyqbyak [Mass/Vol]83 mg/dL74 - 100 mg/dLBON SELECT MEDICAL SPECIALTY HOSPITAL - TRUMBULLCT urea (BUN)on 09-14-4693Akgm nitrogen [Mass/Vol]25 mg/dL 8 - 26 mg/dLBON REGENC[facility]ITAL CLEVELAND WESTPOTASSIUM (POC)on 00-36-7404Jaafcatvm [Moles/Vol]4.2 mmol/L3.5 - 4.5 mmol/LBON REGENCY HOSPITAL CLEVELAND WESTSODIUM (POC)on 01-35-0804Chdmue [Moles/Vol]142 mmol/L138 - 146 mmol/LBON [facility]ENC[facility] C[facility] WESTVL DUP LOWER EXTREMITY ARTERIES RIGHTon 18-55-8482OzvfmDarnell Valadez MD - 12/07/2022 [facility] Vascular Lower Extremities Arterial Duplex Procedure Patient Name LUIZ Date of Study 12/07/2022 [facility] Date of 1945 Gender Female Age 77 year(s) Race Room Number 0501 Height: 65 inch, 165.1 cm Corporate ID # [id number] Weight: 208 pounds, 94.3 kg Patient BSA: 2.01 m^2 BMI: 34.61 kg/m^2 MR # [id number] Drier Helper Whit Gan RVT Interpreting Physician Darnell Monique [...] ! ! ! ! ! +---------++-----+-----+------+----+------++---+-----+------+----+--------- + MeMeMe Phone: radiology Study observation (narrative)[employer] Phone: VL DUP LOWER EXTREMITY ARTERIES RIGHTOrdered By: Darnell Burk on 14-43-4197N[facility] [employer] Phone: CHLORIDE (POC)on 97-78-3364Dlaxxceo [Moles/Vol]105 mmol/L98 - 107 mmol/LBON KitOrderCreatinine W/GFR Point of Careon 60-88-7423Hbboltdilw [Mass/Vol]1.5 mg/dLHigh0.51 - 1.19 mg/dLBON KitOrdereGFR, WYZ47nG/min/1.80y6GTT KitOrderComment on above: Effective Aug 17, 2022 These [...] renal tubular secretion. Hemoglobin and hematocrit, bloodon 93-21-9723Kohzzvpcva (Bld) [Volume fraction] 26 %Low36 - 46 %THEVAHemoglobin (Bld) [Mass/Vol]8.7 g/dLLow 12.0 - 16.0 g/dLBON KitOrderNo Panel Informationon 11-24-2022 Interpretation and review of laboratory resultsAbnormalUVA HEALTH UN[facility]PITAL BON [facility] C[facility] WESTPOCT Glucoseon 00-50-9681Owhctyi [Mass/Vol]135 mg/dLHigh 74 - 100 mg/dLBON REGENCY HOS[facility]ITAL CLEVEL[facility] WESTPOCT urea (BUN)on 10-06-4094ZCB BUNResult not available.8 - 26 mg/dLBON REGENCY HOSPITAL CLEVELAND WESTPOTASSIUM (POC)on 11-24-2022 Potassium [Moles/Vol]5.3 mmol/LHigh3.5 - 4.5 mmol/LBON [facility] Platelet Counton 26-42-7389Rulfeolzg (Bld) [#/Vol]314 10*3/tSGtugyr437-676JmtkgMercy Health Willard HospitalComment on above:Performed By: #### PLT #### [employer] [address] [place] [address] [phone] Office Manager Executive Assistant: Luis Solis MDPlatelets (Bld) [#/Vol]314 10*3/uLBON [facility] HEALTHSODIUM (POC)on 70-41-0195Lzsatm [Moles/Vol] 142 mmol/L138 - 146 mmol/LBON [facility] CLEVEL[facility] WESTCult,Bloodon 10-03-2022 Cult,BloodSpecimen Description .BLOOD Special Requests L AC 10ML Culture NO GROWTH 5 DAYS Report Status FINAL 10/03/2022[facility] Medical CenterComment on above:Performed By: #### BC #### [employer] [address] [place] [address] [phone] Office Manager Executive Assistant: Luis Solis MDCult,BloodSpecimen Description .BLOOD Special Requests R AC 10ML Culture NO GROWTH 5 DAYS Report Status FINAL 10/03/2022[facility] Medical CenterComment on above:Performed By: #### HH, BMPX #### [employer] [address] [place] [address] [phone] Office Manager Executive Assistant: Noni Ware Metab w/rfx MGon 01-55-5814Gmqbc gap [Moles/Vol]9 mmol/LNormal9-17[facility] HospitalComment on above: Performed By: #### FLORINA, BMPX #### [facility] [address] [place] [address] 28720 Office Manager Executive Assistant: LANG Warealcium [Mass/Vol]8.8 mg/dLNormal8.6-10.4[facility] HospitalComment on above:Performed By: #### FLORINA, BMPX #### [facility] [address] [place] [address]12 Office Manager Executive Assistant: LANG Warehloride [Moles/Vol]102 mmol/QQwudpw57-114OudgzMercy Health Willard HospitalComment on above:Performed By: #### FLORINA, BMPX #### [facility] [address] [place] [address]229 Office Manager Executive Assistant: Luis Solis MDCO2 [Moles/Vol]28 mmol/YShulia78-04TeqggMercy Health Willard HospitalComment on above:Performed By: #### FLORINA BMPX #### [facility] [address] [place] [address] 68605 Office Manager Executive Assistant: LANG Warereatinine [Mass/Vol]1.28 mg/dLHigh0.50-0.90 [facility] HospitalComment on above:Performed By: #### FLORINA, BMPX #### [facility] [address] [place] [address] [phone] Office Manager Executive Assistant: Luis Solis MDGFR/1.73 sq M.predicted among non-blacks MDRD (S/P/Bld) [Vol rate/Area]43 mL/min/{1.73_m2}Low>60[facility] HospitalComment on above:Result Comment: Effective Aug 17, [...] tubular secretion.Performed By: #### FLORINA, BMPX #### [address] [address] Office Manager Executive Assistant: Luis Solis MDGlucose [Mass/Vol]141 mg/hHRkaq06-45CaazjSanta Ynez Valley Cottage HospitalComment on above:Performed By: #### FLORINA, BMPX #### [place] [address] Office Manager Executive Assistant: ANDRE Wareotassium [Moles/Vol]4.0 mmol/LNormal3.7-5.3 [facility] HospitalComment on above:Performed By: #### FLORINA, BMPX #### [address] [address] Office Manager Executive Assistant: Luis Solis MDSodium [Moles/Vol]139 mmol/WAawzvq414-611LugbmMercy Health Willard HospitalComment on above:Performed By: #### FLORINA, BMPX #### [address] [address] Office Manager Executive Assistant: Luis Solis MDUrea nitrogen [Mass/Vol]18 mg/dLNormal8-23[facility] HospitalComment on above:Performed By: #### FLORINA, BMPX #### [address] [address] Office Manager Executive Assistant: Starla Ware,Urineon 63-06-5519Rwkv,UrineSpecimen Description .URINE,STRAIGHT CATHETER Culture ESCHERICHIA COLI >260866 CFU/ML AEROCOCCUS URINAE 50 to 100,000 CFU/ML [...] Trimethoprim/Sulfa <=20 SUSCEPTIBLE Piperacillin/Tazobactam <=4 SUSCEPTIBLESusceptibleMercy Health Willard HospitalComment on above:Performed By: #### FLORINA, BMPX #### [employer] [address] [place], [place] [phone] Office Manager Executive Assistant: Ritesh Ware 76-45-7171uOHN Coag (Bld) [Time]30.4 s Bkncte46.5-30.5MerRiverside Community HospitalComment on above:Result Comment: IV Heparin Therapy Range: 48.6-77.8Performed By: #### FLORINA, BMPX #### [employer] [address] [place] [address] Office Manager Executive Assistant: Derrick Wareitoninoriley 28-17-5052Tbwsxperleafy0.23 ng/mLHigh<0.09MerRiverside Community HospitalComment on above:Result Comment: Suspected Sepsis: <0.50 [...] entered into the Change in Procalcitonin Calculator ([email or web address]) to determine the patient's Mortality Risk Prognosis In healthy neonates, plasma Procalcitonin (PCT) concentrations increase gradually after , reaching peak values at about 24 hours of age then decrease to normal values below 0.5 ng/mL by 48-72 hours of age.Performed By: #### MONA BMPX #### [facility] [employer] [address] [place] [address] Office Manager Executive Assistant: Ritesh Ware 18-96-9083hVYS Coag (Bld) [Time]110.7 s Critically high20.5-30.5[facility] HospitalComment on above:Result Comment: IV Heparin Therapy Range: 48.6-77.8Performed By: #### PTT #### [place] [address] Office Manager Executive Assistant: Teodora WareT Coag (Bld) [Time]24.1 iGocrih22.5-30.5[facility] HospitalComment on above:Result Comment: IV Heparin Therapy Range: 48.6-77.8Performed By: #### FLORINA, BMPX #### [place] [address] Office Manager Executive Assistant: Luis Solis MDaPTT Coag (Bld) [Time]22.6 fFprcds92.5-30.5[facility] HospitalComment on above:Result Comment: IV Heparin Therapy Range: 48.6-77.8Performed By: #### HH, BMPX #### [place] [address] Office Manager Executive Assistant: Noni Ware Metab w/rfx MGon 84-07-7359Ghnyg gap [Moles/Vol]10 mmol/LNormal9-17[facility] HospitalComment on above: Performed By: #### MONA, BMPX #### [address] [address] Office Manager Executive Assistant: LANG Warealcium [Mass/Vol]7.6 mg/dLLow8.6-10.4[facility] HospitalComment on above:Performed By: #### MONA, BMPX #### [address] [address] Office Manager Executive Assistant: LANG Warehloride [Moles/Vol]107 mmol/DVthaww60-206SzolgMercy Health Willard HospitalComment on above:Performed By: #### MONA, BMPX #### [facility] [employer] [address] [place] [address] Office Manager Executive Assistant: Luis Solis MDCO2 [Moles/Vol]23 mmol/BIawjqq89-34QukuqMercy Health Willard HospitalComment on above:Performed By: #### MONA BMPX #### [address] [address] Office Manager Executive Assistant: LANG Warereatinine [Mass/Vol]1.33 mg/dLHigh0.50-0.90 [facility] HospitalComment on above:Performed By: #### MONA, BMPX #### [address] [address] Office Manager Executive Assistant: Luis Solis MDGFR/1.73 sq M.predicted among non-blacks MDRD (S/P/Bld) [Vol rate/Area]41 mL/min/{1.73_m2}Low>60[facility] HospitalComment on above:Result Comment: Effective Aug 17, [...] By: #### MONA, BMPX #### [facility] [address] [place] [address] Office Manager Executive Assistant: Luis Solis MDGlucose [Mass/Vol]243 mg/pGAhmc39-50ZanlkSanta Ynez Valley Cottage HospitalComment on above:Performed By: #### MONA, BMPX #### [facility] [address] [place] [phone] Office Manager Executive Assistant: Luis Solis MDPotassium [Moles/Vol]4.5 mmol/LNormal3.7-5.3 [facility] HospitalComment on above:Performed By: #### MONA, BMPX #### [address] [address] Office Manager Executive Assistant: Luis Solis MDSodium [Moles/Vol]140 mmol/ADfxkvn209-963QyauiMercy Health Willard HospitalComment on above:Performed By: #### MONA, BMPX #### [facility] [address] [address] Office Manager Executive Assistant: Luis Solis MDUrea nitrogen [Mass/Vol]21 mg/dLNormal8-23[facility] HospitalComment on above:Performed By: #### MONA, BMPX #### [address] [address] Office Manager Executive Assistant: Luis Solis MDBrain Natri. Peptideon 03-06-1423Iendstbeyyi peptide B (Bld) [Mass/Vol]5275 pg/mLHigh<300[facility] Comment on above:Result Comment: An age-independent cutoff point of 300 pg/ml has a 98% negative predictive value excluding acute heart failure.Performed By: #### FLORINA BMPX #### [facility] [address] [address] Office Manager Executive Assistant: Luis Solis MDC-Reactive Proteinon 40-67-2922JVL [Mass/Vol] 48.0 mg/LHigh0.0-5.0[facility] HospitalComment on above:Performed By: #### MONA, BMPX #### [facility] [employer] [address] [place] [phone] Office Manager Executive Assistant: PRIYA Ware with Diffon 37-73-3189Oje. Basophil0.06 k/uL Normal0.00-0.20[facility] HospitalComment on above:Performed By: #### FLORINA, BMPX #### [facility] [address] [place] [address] Office Manager Executive Assistant: Tamar Ware.Imm.Granulocyte0.16 k/uLNormal0.00-0.30[facility] HospitalComment on above:Performed By: #### FLORINA, BMPX #### [place] [address] Office Manager Executive Assistant: Tamar Ware.Neutrophil (Seg)10.78 k/uLHigh1.50-8.10[facility] HospitalComment on above:Performed By: #### FLORINA, BMPX #### [facility] [employer] [address] [place] [phone] Office Manager Executive Assistant: Luis Solis MDBasophils/100 WBC (Bld)1 %Normal0-2MSanta Ynez Valley Cottage HospitalComment on above:Performed By: #### FLORINA, BMPX #### [facility] [employer] [address] [place] [address] Office Manager Executive Assistant: Luis Solis MDEosinophils (Bld) [#/Vol]0.20 10*3/uLNormal 0.00-0.44[facility] HospitalComment on above:Performed By: #### FLORINA, BMPX #### [address] [address] Office Manager Executive Assistant: CAROLYN Wareosinophils/100 WBC (Bld)2 %Normal1-4[facility] HospitalComment on above:Performed By: #### FLORINA, BMPX #### [address] [address] Office Manager Executive Assistant: Luis Solis MDErythrocyte distribution width (RBC) [Ratio]16.7 %High11.8-14.4[facility] HospitalComment on above:Performed By: #### FLORINA, BMPX #### [place] [address] Office Manager Executive Assistant: Luis Solis MDHematocrit (Bld) [Volume fraction]27.2 %Low 36.3-47.1Mbethesda north hospitaly [facility] Regional Medical CenterComment on above:Performed By: #### FLORINA, BMPX #### [place] [address] Office Manager Executive Assistant: Luis Solis MDHemoglobin (Bld) [Mass/Vol]8.1 g/dLLow11.9-15.1 [facility] HospitalComment on above:Performed By: #### FLORINA, BMPX #### [place] [address] Office Manager Executive Assistant: Luis Solis MDImmature granulocytes/100 WBC (Bld)1 %Spam2OqzbuMercy Health Willard HospitalComment on above:Performed By: #### FLORINA, BMPX #### [place] [address] Office Manager Executive Assistant: Luis Solis MDLymphocytes (Bld) [#/Vol]0.74 10*3/uLLow 1.10-3.70[facility] HospitalComment on above:Performed By: #### FLORINA, BMPX #### [address] [address] Office Manager Executive Assistant: Albina Waremphocytes/100 WBC (Bld)6 %Mfm37-59MtefwMercy Health Willard HospitalComment on above:Performed By: #### FLORINA, BMPX #### [address] [address] Office Manager Executive Assistant: XOCHILT WareCH (RBC) [Entitic mass]26.9 goOzopda08.2-33.5 [facility] HospitalComment on above:Performed By: #### FLORINA, BMPX #### [address] [address] Office Manager Executive Assistant: XOCHILT WareCHC (RBC) [Mass/Vol]29.8 g/xXBhvufb91.4-34.8 [facility] HospitalComment on above:Performed By: #### FLORINA, BMPX #### [address] [address] Office Manager Executive Assistant: XOCHILT WareCV (RBC) [Entitic vol]90.4 nHGtmxlh85.6-102.9 [facility] HospitalComment on above:Performed By: #### FLORINA, BMPX #### [address] [address] Office Manager Executive Assistant: XOCHILT Wareonocytes (Bld) [#/Vol]0.78 10*3/uLNormal 0.10-1.20[facility] HospitalComment on above:Performed By: #### FLORINA, BMPX #### [address] [address] Office Manager Executive Assistant: XOCHILT Wareonocytes/100 WBC (Bld)6 %Normal3-12[facility] HospitalComment on above:Performed By: #### FLORINA, BMPX #### [address] [address] Office Manager Executive Assistant: Luis Solis MDNeutrophil (Seg)84 %Xaym08-73JtfliMercy Health Willard HospitalComment on above:Performed By: #### FLORINA, BMPX #### [facility] [employer] [facility] [place] [address] Office Manager Executive Assistant: KENJI Ware Automated0.2 per 100 WBCHigh0.0[facility]ard HospitalComment on above:Performed By: #### FLORINA, BMPX #### [address] [address] Office Manager Executive Assistant: Danny Waretelet mean volume (Bld) [Entitic vol]9.9 fL Normal8.1-13.5[facility] HospitalComment on above:Performed By: #### FLORINA, BMPX #### [facility] [employer] [address] [place] [address] Office Manager Executive Assistant: ANDRE Warelatelets (Bld) [#/Vol]391 10*3/jKXwimqz950-153 [facility] HospitalComment on above:Performed By: #### FLORINA, BMPX #### [address] [address] Office Manager Executive Assistant: LETTY WareBC (Bld) [#/Vol]3.01 10*6/uLLow3.95-5.11[facility] HospitalComment on above:Performed By: #### FLORINA, BMPX #### [address] [address] Office Manager Executive Assistant: MELY Ware morphology finding Nom (Bld)ANISOCYTOSIS PRESENTNormalMercy Health Willard HospitalComment on above:Performed By: #### FLORINA, BMPX #### [facility] [employer] [address] [place] [phone] Office Manager Executive Assistant: AL WareBC (Bld) [#/Vol]12.7 10*3/uLHigh3.5-11.3MSanta Ynez Valley Cottage HospitalComment on above:Performed By: #### FLORINA, BMPX #### [id number] [place] [address] Office Manager Executive Assistant: Luis Solis, MDCT CHEST PULMONARY EMBOLISM W CONTRASTon [id number] CHEST PULMONARY EMBOLISM W CONTRASTEXAMINATION: CTA OF [...] Signed by: Matthew Chong MD 09/28/22 Final resultNormalMerRiverside Community HospitalComp Metabolic Profon 13-40-3281Wsnxqcr [Mass/Vol]3.5 g/dLNormal3.5-5.2[facility] Medical CenterComment on above:Performed By: #### FLOIRNA BMPX #### [place] [address] Office Manager Executive Assistant: Luis Solis MDAlbumin/Glob Ratio0.9Low1.0-2.5[facility] Willard HospitalComment on above:Performed By: #### FLORINA BMPX #### [place] [address] Office Manager Executive Assistant: Luis Solis MDAlkaline Shld256 U/JJnbxiq65-950ZurwfMercy Health Willard HospitalComment on above:Performed By: #### FLORINA BMPX #### [facility] [employer] [address] [place] [address] Office Manager Executive Assistant: Luis Solis MDALT [Catalytic activity/Vol]7 U/LNormal5-33[facility] Willard HospitalComment on above:Performed By: #### FLORINA BMPX #### [facility] [employer] [address] [place] [address] Office Manager Executive Assistant: Luis Solis MDAnion gap [Moles/Vol]13 mmol/LNormal9-17[facility] Will[facility] HospitalComment on above:Performed By: #### HH, BMPX #### [facility] [address] [place] [address] Office Manager Executive Assistant: Luis Solis MDAST [Catalytic activity/Vol]15 U/LNormal<32[facility] Willard HospitalComment on above:Performed By: #### HH, BMPX #### [facility] [address] [place] [address] Office Manager Executive Assistant: Luis Solis MDBilirubin [Mass/Vol]0.5 mg/dLNormal0.3-1.2MSanta Ynez Valley Cottage HospitalComment on above:Performed By: #### FLORINA, BMPX #### [address] [address] Office Manager Executive Assistant: Luis Solis MDCalcium [Mass/Vol]8.5 mg/dLLow8.6-10.4[facility] Willard HospitalComment on above:Performed By: #### FLORINA, BMPX #### [address] [address] Office Manager Executive Assistant: Luis Solis MDChloride [Moles/Vol]102 mmol/INlduwz06-448NhmvvMercy Health Willard HospitalComment on above:Performed By: #### FLORINA, BMPX #### [address] [address] Office Manager Executive Assistant: Luis Solis MDCO2 [Moles/Vol]24 mmol/HBtpwed92-54KeodkMercy Health Willard HospitalComment on above:Performed By: #### HH, BMPX #### [facility] [address] [place] [address] Office Manager Executive Assistant: Luis Solis MDCreatinine [Mass/Vol]1.62 mg/dLHigh0.50-0.90 [facility] Will[facility] HospitalComment on above:Performed By: #### HH, BMPX #### [facility] [employer] [address] [place] [address] [phone] Office Manager Executive Assistant: Luis Solis MDGFR/1.73 sq M.predicted among non-blacks MDRD (S/P/Bld) [Vol rate/Area]33 mL/min/{1.73_m2}Low>60[facility] Willard HospitalComment on above:Result Comment: Effective Aug 17, [...] tubular secretion.Performed By: #### FLORINA BMPX #### [facility] [address] [place] [address] Office Manager Executive Assistant: Luis Solis MDGlucose [Mass/Vol]272 mg/aYZipm11-49MofzaSanta Ynez Valley Cottage HospitalComment on above:Performed By: #### FLORINA BMPX #### [facility] [address] [place] [address] Office Manager Executive Assistant: Luis Solis MDPotassium [Moles/Vol]4.4 mmol/LNormal3.7-5.3 [facility] HospitalComment on above:Performed By: #### FLORINA BMPX #### [facility] [address] [place] [address] Office Manager Executive Assistant: Luis Solis MDProtein [Mass/Vol]7.3 g/dLNormal6.4-8.3MSanta Ynez Valley Cottage HospitalComment on above:Performed By: #### FLORINA, BMPX #### [facility] [address] [place] [address] Office Manager Executive Assistant: Luis Solis MDSodium [Moles/Vol]139 mmol/DRewwfr005-031NxitfMercy Health Willard HospitalComment on above:Performed By: #### FLORINA, BMPX #### [facility] [address] [place] [address] Office Manager Executive Assistant: Barry Ware nitrogen [Mass/Vol]22 mg/dLNormal8-23[facility] Willard HospitalComment on above:Performed By: #### FLORINA, BMPX #### [facility] [address] [place] [address] Office Manager Executive Assistant: Louise aWrectate, Sepsison 34-91-9938Izsnmw Acid,Sep Wbld 0.6 mmol/LNormal0.5-1.9[facility] Willard HospitalComment on above: Performed By: #### MONA, BMPX #### [facility] [address] [place] [address] Office Manager Executive Assistant: Luis Solis MDLactic Acid,Sep Wbld1.5 mmol/LNormal0.5-1.9[facility] HospitalComment on above:Performed By: #### FLORINA, BMPX #### [facility] [address] [place] [address] Office Manager Executive Assistant: Luis Solis MDLegionelui Ag, Uron 18-83-4271Zbnsasbqha Ag, Ur NegativeNormalNEGMercy Health Willard HospitalComment on above:Result Comment: L. pneumophila serogroup 1 antigen not detected. A negative result does not exclude infection with Leginella pnemophila serogroup 1 nor does it rule out other microbial-caused respiratory infections of disease caused by other serogroups of Legionella pneumophila.Performed By: #### FLOIRNA, BMPX #### [facility] [address] [place] [address] Office Manager Executive Assistant: Reina Ware 97-98-2902QZU Coag (PPP) [Relative time]1.1 {INR}NormalMercy Health Willard HospitalComment on above:Result Comment: Therapeutic Range: Moderate Anticoagulant Intensity: INR = 2.0-3.0 High Anticoagulant Intensity: INR = 2.5-3.5Performed By: #### FLORINA BMPX #### [facility] [place] [address] Office Manager Executive Assistant: JAROCHO Ware Coag (PPP) [Time]11.8 sNormal9.1-12.3[facility] Medical CenterComment on above:Performed By: #### FLORINA, BMPX #### [facility] [employer] [address] [place] [address] Office Manager Executive Assistant: FLAVIO Ware-CoV-2on 93-63-8436PFNL-CoV-2 (COVID-19) RNA SIRI+probe Ql (Unsp spec)Not detectedNormalNOTDEFulton County Health CenterComment on above:Result Comment: Rapid NAAT: The specimen [...] management decisions. Fact sheet for Healthcare Providers: https://www.fda.gov/media/850896/download Fact sheet for Patients: https://www.fda.gov/media/261926/download Methodology: Isothermal Nucleic Acid AmplificationPerformed By: #### WILSON DUNNX #### [facility] [employer] [facility] [place] [address] Office Manager Executive Assistant: Tristan Wareimentation Rateon 51-85-8935Uxwyarnnafgqq Rate61 mm/HrHigh0-30[facility] Medical CenterComment on above:Performed By: #### WILSON DUNNX #### [facility] [address] [place] [address] [phone] Office Manager Executive Assistant: Jose Wrae pneum Ag,CSF/Uron 48-45-0595Gbgcf pneum Ag NegativeNoProvidence HospitalComment on above:Result Comment: Strep pneumoniae antigen not detectedPerformed By: #### MONA, BMPX #### [facility] [employer] [address] [place], [place] [phone] Office Manager Executive Assistant: Jose Ware pneu Ag Source.URINENormTrumbull Memorial HospitalComment on above:Performed By: #### MONA BMPX #### [facility] [address] [place] [address] Office Manager Executive Assistant: Modesta Warenisaloni 08-65-4080Cujmeask, High Xbft099 ng/L Critically high0-[facility] HospitalComment on above:Result Comment: High Sensitivity Troponin values cannot be compared with other Troponin methodologies. Patients with high levels of Biotin oral intake (i.e >5mg/day) may have falsely decreased Troponin levels. Samples collected within 8 hours of biotin intake may require additional information for diagnosis.Performed By: #### MONA BMPX #### [facility] [employer] [address] [place] [address] Office Manager Executive Assistant: Chloe Ware, High Tccg746 ng/LCritically high [facility] HospitalComment on above:Result Comment: High Sensitivity Troponin values cannot be compared with other Troponin methodologies. Patients with high levels of Biotin oral intake (i.e >5mg/day) may have falsely decreased Troponin levels. Samples collected within 8 hours of biotin intake may require additional information for diagnosis.Performed By: #### FLORINA, BMPX #### [facility] [address] [place] [address] [phone] Office Manager Executive Assistant: Luis Solis MDType + Screenon 61-63-7480Cjrt + ScreenSample Expiration 10/01/2022,2359 Arm Band Number BE [id number] ABO/Rh(D) O NEGATIVE Antibody Screen NEGATIVENormalMerRiverside Community HospitalComment on above: Performed By: #### FLORINA, BMPX #### [facility] [address] [place] [address] Office Manager Executive Assistant: Luis Solis MDUrinalysis w/ Microon 53-29-6206GtuouchcXDVM AbnormalNONEMercy Anaheim Regional Medical CenterComment on above:Performed By: #### FLORINA, BMPX #### [facility] [address] [place] [address] Office Manager Executive Assistant: Mary Wareirubin, SemiQt,UrNegativeNormalNEGMercy Health Willard HospitalComment on above:Performed By: #### FLORINA, BMPX #### [facility] [employer] [address] [place] [address] Office Manager Executive Assistant: Chichi Ware, UrineNegativeNormalNEGMercy Health Willard HospitalComment on above:Performed By: #### FLORINA, BMPX #### [facility] [address] [place] [address] Office Manager Executive Assistant: LANG Wareasts0 TO 2 HYALINENormal0-8[facility] HospitalComment on above:Result Comment: Reference range defined for non- centrifuged specimen.Performed By: #### FLORINA, BMPX #### [facility] [employer] [address] [place] [address] Office Manager Executive Assistant: LANG Warelarity (U)CloudyAbnormalCLEARMercy Anaheim Regional Medical CenterComment on above:Performed By: #### FLORINA, BMPX #### [facility] [address] [place] [address] Office Manager Executive Assistant: LANG Wareolor (U)YellowNormalYELMerRiverside Community HospitalComment on above:Performed By: #### FLORINA, BMPX #### [facility] [address] [place] [address] Office Manager Executive Assistant: Luis Solis MDEpithelial cells LM Ql (Urine sed)5 TO 10Normal 0-5[facility] HospitalComment on above:Performed By: #### FLORINA, BMPX #### [facility] [address] [place] [address] Office Manager Executive Assistant: Luis Solis MDGlucose Ql (U)2+AbnormalNEGMercy Health Willard HospitalComment on above:Performed By: #### FLORINA, BMPX #### [facility] [address] [place] [address] Office Manager Executive Assistant: Luis Solis MDKetones Ql (U)TRACEAbnormalNEGMercy Health Willard HospitalComment on above:Performed By: #### FLORINA, BMPX #### [address] [address] Office Manager Executive Assistant: Luis Solis MDLeukocyte esterase Test strip Ql (U)TRACE AbnormalNEGMercy Health Willard HospitalComment on above:Performed By: #### FLORINA, BMPX #### [facility] [address] Office Manager Executive Assistant: Luis Solis MDNitrite,UrNegativeNormalNEGMercy Health Willard HospitalComment on above:Performed By: #### FLORINA, BMPX #### [facility] [address] [place] [address] Office Manager Executive Assistant: ANDRE Ware,Ur5.2Iekeaq4.0-8.0[facility] HospitalComment on above:Performed By: #### FLORINA, BMPX #### [facility] [address] [place] [address] Office Manager Executive Assistant: ANDRE Warerotein Ql (U)TRACEAbnormalNEGMercy Health Willard HospitalComment on above:Performed By: #### FLORINA, BMPX #### [facility] [employer] [facility] [address] [place] [address] Office Manager Executive Assistant: JOHNATHAN Warepec. [place],Ur1.848Hsmgbf3.005-1.030[facility] HospitalComment on above:Performed By: #### HH, BMPX #### [facility] [address] [place] [address] Office Manager Executive Assistant: Lexi Ware RBC's0 TO 8Jjvkau2-5KczfvMercy Health Willard HospitalComment on above:Result Comment: Reference range defined for non- centrifuged specimen.Performed By: #### HH, BMPX #### [facility] [address] [place] [address] Office Manager Executive Assistant: Lexi Ware WBC's10 TO 61Zobksq9-4DvfzxMercy Health Willard HospitalComment on above:Performed By: #### FLORINA, BMPX #### [facility] [address] [place] [address] Office Manager Executive Assistant: Luis Solis MDUrobilinogen,UrNormalNormalNORMMercy Health Willard HospitalComment on above:Performed By: #### FLORINA, BMPX #### [facility] [address] [place] [address] Office Manager Executive Assistant: DAKOTA Ware CHEST PORTABLEon 47-21-4382ZW CHEST PORTABLE EXAMINATION: ONE XRAY VIEW OF [...] Signed by: Garth Herr MD 09/28/22 Final resultNoProvidence HospitalCT BRAIN WO CONTRASTon [id number] BRAIN WO CONTRASTUnWadsworth-Rittman Hospital Department of Radiology [address] [place] [address] Patient Name: CUCA DEE : 1945 Sex: F Age: Race: White Pt. 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 Electronically signed: Berry Wyman. Transcribed by: [email or web address], User Resident: Electronically Signed by: BERRY WYMAN @ 03/31/2022 03:[address] [facility] HospitalComment on above:Order Comment: hydrocephalus s/p vp ancillary shuntVP SHUNT SERIESon [id number] SHUNT SERIESUnWadsworth-Rittman Hospital Department of Radiology [address] [place] [id number] Patient Name: CUCA DEE : 1945 [...] , Ordering Provider - A DIANE MSN CLOTH HAULER , Exam: MARINE DIESEL MECHANIC SHUNT SERIES MARINE DIESEL MECHANIC SHUNT SERIES HISTORY: Shunt evaluation. COMPARISON: 09/17/2020. [...] described. Electronically signed: Lam Ray. Transcribed by: [email or web address], User Resident: Electronically Signed by: LAM RAY @ 04/03/2022 08:50 AMNormalBarnesville HospitalComment on above:Order Comment: , .Ang.brEr/o kinking or discontinuity of shunt tubing and do image perpendicularl to valve to check OP , .brr/o kinking or discontinuity of shunt tubing and do image perpendicularl to valve to check OP , , , Ordering Provider - Danielle RAWLS CLOTH HAULER , Lipid Profileon 32-60-5284Mwwrhfrwbhj [Mass/Vol]117 mg/dLNormal<200 [facility] CenterComment on above:Result Comment: Cholesterol Guidelines: <200 Desirable 200-240 Borderline >240 UndesirablePerformed By: #### LIPR #### [employer] [facility] [place] [address] Office Manager Executive Assistant: LANG Wareholesterol in HDL [Mass/Vol]39 mg/dLLow>40[facility] CenterComment on above:Result Comment: HDL Guidelines: <40 Undesirable 40-59 Borderline >59 DesirablePerformed By: #### LIPR #### [employer] [address] [place] [address] Office Manager Executive Assistant: LANG Wareholesterol in LDL [Mass/Vol]62 mg/dLNormal0-130 [facility] CenterComment on above:Result Comment: LDL Guidelines: <100 Desirable 100-129 Near to/above Desirable 130-159 Borderline >159 Undesirable Direct (measured) LDL and calculated LDL are not interchangeable tests.Performed By: #### LIPR #### [address] [address] Office Manager Executive Assistant: Rafa Ware.total/Cholesterol in HDL [Mass ratio]3.0 {ratio}Normal<5[facility] CenterComment on above:Performed By: #### LIPR #### [address] [address] Office Manager Executive Assistant: Luis Solis MDTriglyceride [Mass/Vol]79 mg/dLNormal<150MerProtestant Deaconess Hospital HospitalComment on above:Result Comment: Triglyceride Guidelines: <150 Desirable 150-199 Borderline 200-499 High >499 Very high Based on AHA Guidelines for fasting triglyceride, August 2012.Performed By: #### LIPR #### [address] [address] Office Manager Executive Assistant: LANG Wareholesterol,VLDLNOT REPORTEDNormal1-30MerProtestant Deaconess Hospital HospitalComment on above:Performed By: #### LIPR #### [address] [address] Office Manager Executive Assistant: Luis Solis MDUric Acidon 76-36-1303Shabh [Mass/Vol]6.8 mg/dL High2.4-5.7[facility] CenterComment on above:Performed By: #### URI #### [facility] [address] [place] [address] [place] [address] Office Manager Executive Assistant: Giovanny Carpenter MDUric AcidOrdered By: Lakeshia Farias on 03-24-2021 Interpretation and review of laboratory resultsAbnormalGenesis Hospital Health Work Phone: Urate [Mass/Vol]6.8 mg/dLHigh2.4 - 5.7 mg/dLRegency Hospital Cleveland West Work Phone: cBC AUTO DIFFon [id number] #0.0 103/ulNormal 0.0-0.1[facility] Hospital - CantonComment on above:Performed By: #### CBC #### [facility] [address] [id number] Ghulam KarenBasophils/100 WBC (Bld)0.4 %Normal0.2-2.0The [facility] Comment on above:Performed By: #### CBC #### [facility] [address] [place] [address] Ghulam KarenEO #0.4 103/ulNormal0.0-0.7The [facility] HospitalComment on above: Performed By: #### CBC #### [facility] [address] [place] [address] Ghulam KarenEosinophils/100 WBC (Bld)4.3 %Normal0.9-7.0The [facility] Comment on above:Performed By: #### CBC #### [facility] [address] [place] [address] Ghulam KarenErythrocyte distribution width (RBC) [Ratio]15.9 %Critically high 11.0-15.0The [facility] HospitalComment on above:Performed By: #### CBC #### [facility] [address] [place] [address] Ghulam KarenHematocrit (Bld) [Volume fraction]28.5 %Critically low36.0-48.0The [facility] HospitalComment on above:Performed By: #### CBC #### [facility] [address] [place] [address] Ghulam KarenHemoglobin (Bld) [Mass/Vol]8.9 g/dLCritically low12.0-16.0The [facility] HospitalComment on above:Performed By: #### CBC #### [facility] [address] [place] [address] Ghulam KarenIG #0.04 10e3/ulCritically high0.00-0.03The [facility] HospitalComment on above:Performed By: #### CBC #### [facility] [address] [place] [address] Ghulam KarenIG %0.4 %Normal0.0-0.5The [facility] HospitalComment on above: Performed By: #### CBC #### [facility] [address] [address] Ghulam KarenLYMPH #2.2 103/ulNormal1.2-3.8The [facility] HospitalComment on above: Performed By: #### CBC #### [facility] [address] [address] Ghulam KarenLymphocytes/100 WBC (Bld)21.9 %Bnoown99.5-60.0[facility] Comment on above:Performed By: #### CBC #### [facility] [address] [place] [address] Ghulam KarenMANUAL DIFF REQNONormalThe [facility] HospitalComment on above: Performed By: #### CBC #### [facility] [address] [place] [address] Ghulam KarenMCH (RBC) [Entitic mass]27.1 grYyzhsl53.7-34.0The [facility] Comment on above:Performed By: #### CBC #### [facility] [address] [place] [address] Ghulam KarenMCHC (RBC) [Mass/Vol]31.2 g/dJHlmjxc10.9-35.2[facility] Comment on above:Performed By: #### CBC #### [facility] [address] [place] [address] Ghulam KarenMCV (RBC) [Entitic vol]86.9 cWRxrfqc22.0-99.0The [facility] Comment on above:Performed By: #### CBC #### [facility] [address] [place] [address] Ghulam KarenMONO #1.0 103/ulCritically high0.3-0.8The [facility] HospitalComment on above:Performed By: #### CBC #### [facility] [address] [place] [address] Ghulam KarenMonocytes/100 WBC (Bld)10.1 %Normal1.7-12.0[facility] Comment on above:Performed By: #### CBC #### [facility] [address] [place] [address] Ghulam SotoenNEUT #6.2 103/ulNormal1.4-6.5The [facility] HospitalComment on above: Performed By: #### CBC #### [facility] [address] [place] [address] Ghulam SotoenNeutrophils/100 WBC (Bld)62.9 %Tigmpk52.0-75.0The [facility] Comment on above:Performed By: #### CBC #### [facility] [address] [place] [address] Ghulam KarenPlatelet mean volume (Bld) [Entitic vol]10.2 fLNormal9.5-13.5The [facility] HospitalComment on above:Performed By: #### CBC #### [facility] [address] [place] [address] Ghulam TkubmPQQ698 103/baEnbahu362-140Smz [facility] HospitalComment on above: Performed By: #### CBC #### [facility] [address] [place] [address] Ghulam KarenRBC3.28 106/ulCritically low4.20-5.40The [facility] HospitalComment on above:Performed By: #### CBC #### [facility] [address] [place] [address] Ghulam KarenWBC9.9 103/ulNormal4.0-11.0The [facility] HospitalComment on above: Performed By: #### CBC #### [facility] [address] [place] [address] Ghulam KarenPROF 14(COMP METB)on 80-62-2127Nkdlyet [Mass/Vol]2.8 g/dLCritically low3.5-5.0The [facility] HospitalComment on above:Performed By: #### CMP #### [facility] [address] [place] [address] Ghulam KarenAlbumin/Globulin [Mass ratio]0.6 {ratio}NormalThe [facility] Comment on above:Performed By: #### CMP #### [facility] [address] [address] Ghulam KarenALP [Catalytic activity/Vol]95 U/CNtxjcp91-814Wxb [facility] Comment on above:Performed By: #### CMP #### [facility] [address] [address] Ghulam KarenALT [Catalytic activity/Vol]16 U/LNormal9-52[facility] Comment on above:Performed By: #### CMP #### [facility] [address] [address] Ghulam KarenAnion gap [Moles/Vol]11.6 mmol/LNormalSelect Medical Specialty Hospital - CantonComment on above:Performed By: #### CMP #### [facility] [address] [address] Ghulam KarenAST [Catalytic activity/Vol]13 U/LCritically jrs06-11OyySelect Medical Specialty Hospital - CantonComment on above:Performed By: #### CMP #### [facility] [address] [address] Ghulam KarenBilirubin [Mass/Vol]0.4 mg/dLNormal0.2-1.3TAvita Health System [facility] Comment on above:Performed By: #### CMP #### [facility] [address] [place] [address] Ghulam KarenCalcium [Mass/Vol]8.9 mg/dLNormal8.4-10.2[facility] Comment on above:Performed By: #### CMP #### [facility] [address] [place] [address] Ghulam KarenChloride [Moles/Vol]103 mmol/LIixtsr03-242Qqx [facility] Comment on above:Performed By: #### CMP #### [facility] [address] [place] [address] Ghulam KarenCO2 [Moles/Vol]27.4 mmol/IEehksz50.0-30.0[facility] Comment on above:Performed By: #### CMP #### [facility] [address] [place] [address] Ghulam KarenCreatinine [Mass/Vol]1.86 mg/dLCritically high0.52-1.04[facility]onComment on above:Performed By: #### CMP #### [facility] [address] [address] Ghulam KarenEGFR-AF TQKWRHWL00 mL/min/1.03n4Zijbgqyosn low>=60The [facility] HospitalComment on above:Performed By: #### CMP #### [facility] [address] [address] Ghulam KarenEGFR-NON AF OGQKBQEM24 mL/min/1.74t7Viwqxbszsv low>=60The [facility] HospitalComment on above:Performed By: #### CMP #### [facility] [address] [place] [address] Ghulam KarenGlobulin (S) [Mass/Vol]4.6 g/dLNormalThe [facility] HospitalComment on above:Performed By: #### CMP #### [facility] [address] [place] [address] Ghulam KarenGlucose [Mass/Vol]174 mg/dLCritically iive86-333Gah [facility] HospitalComment on above:Performed By: #### CMP #### [facility] [address] [place] [address] Ghulam KarenPotassium [Moles/Vol]4.0 mmol/LNormal3.4-5.0The [facility] Comment on above:Performed By: #### CMP #### [facility] [address] [place] [address] Ghulam KarenProtein [Mass/Vol]7.4 g/dLNormal6.1-8.2[facility]onComment on above:Performed By: #### CMP #### [facility] [address] [place] [address] Ghulam KarenSodium [Moles/Vol]138 mmol/PCrhete142-544Kpf [facility] Comment on above:Performed By: #### CMP #### [facility] [address] [place] [address] Ghulam KarenUrea nitrogen [Mass/Vol]24.0 mg/dLCritically high7.0-17.0[facility]onComment on above:Performed By: #### CMP #### [facility] [address] [place] [address] Ghulam KarenUrea nitrogen/Creatinine [Mass ratio]12.9 mg/mgNormalThe [facility] HospitalComment on above:Performed By: #### CMP #### [facility] [address] [place] [address] Ghulam KarenRESPIRATORY PANEL PLUSon [id number] detectedNormalNOT DETECTEDThe [facility] HospitalComment on above:Performed By: #### RSPLUS #### [facility] [address] [place] [address] Ghulam KarenB. ParapertusisNot detectedNormalNOT DETECTED[facility] Comment on above:Performed By: #### RSPLUS #### [facility] [address] [place] [address] Ghulam KarenB. PertussisNot detectedNormalNOT DETECTEDSelect [facility] Comment on above:Performed By: #### RSPLUS #### [facility] [address] [place] [address] Ghulam KarenChlamydia PneumoniaeNot detectedNormalNOT DETECTEDSelect [facility]onComment on above:Performed By: #### RSPLUS #### [facility] [address] [place] [address] Ghulam KarenCoronavirus 229ENot detectedNormalNOT DETECTEDThe [facility] Comment on above:Performed By: #### RSPLUS #### [facility] [address] [place] [address] Ghulam KarenCoronavirus [id number] detectedNormalNOT DETECTED[facility] Comment on above:Performed By: #### RSPLUS #### [facility] [address] [place] [address] Ghulam KarenCoronavirus [id number] detectedNormalNOT DETECTED[facility] Comment on above:Performed By: #### RSPLUS #### [facility] [address] [place] [address] Ghulam KarenCoronavirus PW10Myy detectedNormalNOT DETECTEDThe [facility] Comment on above:Performed By: #### RSPLUS #### [facility] [address] [address] Ghulam KarenInfluenza A H1 2009Not detectedNormalNOT DETECTEDThe [facility] HospitalComment on above:Performed By: #### RSPLUS #### [facility] [address] [address] Ghulam KarenInfluenza BNot detectedNormalNOT DETECTEDThe [facility] Comment on above:Performed By: #### RSPLUS #### [facility] [address] [address] Ghulam KarenMetapneumovirusNot detectedNormalNOT DETECTED[facility] Comment on above:Performed By: #### RSPLUS #### [facility] [address] [address] Ghulam KarenMycoplas. PneumoniaeNot detectedNormalNOT DETECTEDThe [facility] HospitalComment on above:Performed By: #### RSPLUS #### [facility] [address] [address] Ghulam KarenParainfluenza 1Not detectedNormalNOT DETECTED[facility] Comment on above:Performed By: #### RSPLUS #### [facility] [address] [address] Ghulam KarenParainfluenza 2Not detectedNormalNOT DETECTEDThe [facility] Comment on above:Performed By: #### RSPLUS #### [facility] [address] [address] Ghulam KarenParainfluenza 3Not detectedNormalNOT DETECTEDThe [facility] Comment on above:Performed By: #### RSPLUS #### [facility] [address] [address] Ghulam KarenParainfluenza 4Not detectedNormalNOT DETECTEDThe [facility] Comment on above:Performed By: #### RSPLUS #### [facility] [address] [address] Ghulam KarenRhino/EnterovirusNot detectedNormalNOT DETECTED[facility] Comment on above:Performed By: #### RSPLUS #### [facility] [address] [place] [address] KarenRP2 Header 1RESPIRATORY PANEL: [facility]ESP[facility] Comment on above:Performed By: #### RSPLUS #### [facility] [address] [place] [address] CharlesRP2 Header 2RESPIRATORY PANEL: [facility]ACT[facility]IAPike [facility] Comment on above:Performed By: #### RSPLUS #### [facility] [address] [place] [address] CharlesenRP2 Header 4 EUASEE BELOWPike Community HospitalComment on above:Result Comment: This test is not yet approved or cleared by the [place] FDA. When there are no FDA-approved or cleared tests available, and other criteria are met, FDA can make tests available under an emergency access mechanism called an Emergency Use Authorization (EUA). The EUA for this test is supported by the [place] of Health and Human Service?s (HHS?s) declaration [...] longer be used).Performed By: #### RSPLUS #### [facility] [address] [place] [address] Ghulam ReyesRSVNot detectedNormalNOT DETECTEDThe [facility] HospitalComment on above:Performed By: #### RSPLUS #### [facility] [address] [place] [address] Ghulam TrujilloSivtbBLUS-VbP-6 (COVID-19) RNA SIRI+probe Ql (Unsp spec)Not detectedNormal NOT DETECTEDThe [facility] HospitalComment on above:Performed By: #### RSPLUS #### [facility] [address] [place] [address] Ghulam KarenURIC ACID SERUMon [id number] [Mass/Vol]7.4 mg/dLCritically high 2.5-6.2The [facility] HospitalComment on above:Performed By: #### URIC #### [facility] [address] [place] [address] Ghulam KarenCBC AUTO DIFFon [id number] #0.0 103/ulNormal0.0-0.1The [facility] HospitalComment on above:Performed By: #### CBC #### [facility] [address] [place] [address] Ghulam KarenBasophils/100 WBC (Bld)0.3 %Normal0.2-2.0The [facility] Comment on above:Performed By: #### CBC #### [facility] [address] [place] [address] Ghulam KarenEO #0.1 103/ulNormal0.0-0.7The [facility] HospitalComment on above: Performed By: #### CBC #### [facility] [address] [place] [address] Ghulam KarenEosinophils/100 WBC (Bld)0.9 %Normal0.9-7.0The [facility] Comment on above:Performed By: #### CBC #### [facility] [address] [place] [address] Ghulam KarenErythrocyte distribution width (RBC) [Ratio]15.5 %Critically high 11.0-15.0The [facility] HospitalComment on above:Performed By: #### CBC #### [facility] [address] [place] [address] Ghulam KarenHematocrit (Bld) [Volume fraction]28.1 %Critically low36.0-48.0The [facility] HospitalComment on above:Performed By: #### CBC #### [facility] [address] [place] [address] Ghulam KarenHemoglobin (Bld) [Mass/Vol]8.9 g/dLCritically low12.0-16.0The [facility] HospitalComment on above:Performed By: #### CBC #### [facility] [address] [address] Ghulam SotoenIG #0.05 10e3/ulCritically high0.00-0.03The [facility] HospitalComment on above:Performed By: #### CBC #### [facility] [address] [address] Ghulamgabriela SotoenIG %0.5 %Normal0.0-0.5The [facility] HospitalComment on above: Performed By: #### CBC #### [facility] [address] [place] [address] Ghulam KarenLYMPH #1.9 103/ulNormal1.2-3.8The [facility] HospitalComment on above: Performed By: #### CBC #### [facility] [address] [place] [address] Ghulam KarenLymphocytes/100 WBC (Bld)17.2 %Critically low20.5-60.0The [facility] HospitalComment on above:Performed By: #### CBC #### [facility] [address] [place] [address] Ghulam KarenMANUAL DIFF REQNONormalThe [facility] HospitalComment on above: Performed By: #### CBC #### [facility] [address] [place] [address] Ghulam KarenMCH (RBC) [Entitic mass]27.1 bzWgtuev30.7-34.0The [facility] Comment on above:Performed By: #### CBC #### [facility] [address] [place] [address] Ghulam KarenMCHC (RBC) [Mass/Vol]31.7 g/yOCrwusj69.9-35.2[facility] Comment on above:Performed By: #### CBC #### [facility] [address] [place] [address] Ghulam KarenMCV (RBC) [Entitic vol]85.4 lVGogihb14.0-99.0[facility] Comment on above:Performed By: #### CBC #### [facility] [address] [address] Ghulam KarenMONO #1.0 103/ulCritically high0.3-0.8The [facility] HospitalComment on above:Performed By: #### CBC #### [facility] [address] [address] Ghulam KarenMonocytes/100 WBC (Bld)9.5 %Normal1.7-12.0The [facility] Comment on above:Performed By: #### CBC #### [facility] [address] [place] [address] Ghulam KarenNEUT #7.7 103/ulCritically high1.4-6.5The [facility] HospitalComment on above:Performed By: #### CBC #### [facility] [address] [place] [address] Ghulam KarenNeutrophils/100 WBC (Bld)71.6 %Wejluh84.0-75.0The [facility] Comment on above:Performed By: #### CBC #### [facility] [address] [place] [address] Ghulam KarenPlatelet mean volume (Bld) [Entitic vol]10.1 fLNormal9.5-13.5The [facility] HospitalComment on above:Performed By: #### CBC #### [facility] [address] [place] [address] Ghulam TcjbtFZO478 103/maKhufln059-930Lun [facility] HospitalComment on above: Performed By: #### CBC #### [facility] [address] [place] [address] Ghulam KarenRBC3.29 106/ulCritically low4.20-5.40The [facility] HospitalComment on above:Performed By: #### CBC #### [facility] [address] [place] [address] Ghualm LrgsyDYI19.7 103/ulNormal4.0-11.0The [facility] HospitalComment on above: Performed By: #### CBC #### [facility] [address] [address] Ghulam KarenMAGNESIUMon [id number] [Mass/Vol]1.9 mg/dLNormal1.6-2.3The [facility] HospitalComment on above:Performed By: #### MG ####[facility] [address] [address]Gerken KarenPOINT OF CARE GLUCOSEon 04-83-0040Hrgvsid [Mass/Vol]68 mg/dLCritically vxj48-284LvqSelect Medical Specialty Hospital [facility] CantonComment on above:Performed By: #### POCGLUC #### [facility] [address] [address] Ghulam KarenGlucose [Mass/Vol]91 mg/fIGhjoci33-710JaiSelect Medical Specialty Hospital - CantonComment on above:Performed By: #### POCGLUC #### [facility] [address] [address] Ghulam KarenGlucose [Mass/Vol]136 mg/dLCritically izvw19-852NjmSelect Medical Specialty Hospital - CantonComment on above:Performed By: #### POCGLUC #### [facility] [address] [address] Hg[address] KarenPROF 14(COMP METB)on 66-25-8963Pxpbbyv [Mass/Vol]2.7 g/dLCritically low3.5-5.0[facility]onComment on above:Performed By: #### CMP #### [facility] [address] [address] Ghulam KarenAlbumin/Globulin [Mass ratio]0.6 {ratio}NormalSelect Medical [facility] Comment on above:Performed By: #### CMP #### [facility] [address] [address] Ghulam KarenALP [Catalytic activity/Vol]99 U/HSyvotp56-877TbhSelect Medical Specialty Hospital [facility] Comment on above:Performed By: #### CMP #### [facility] [address] [place] [address] Ghulam KarenALT [Catalytic activity/Vol]14 U/LNormal9-52[facility] Comment on above:Performed By: #### CMP #### [facility] [address] [id number] Ghulam KarenAnion gap [Moles/Vol]10.5 mmol/LNormalThe [facility] HospitalComment on above:Performed By: #### CMP #### [facility] [address] [address] Ghulam KarenAST [Catalytic activity/Vol]13 U/LCritically hdd60-96Qqi [facility] HospitalComment on above:Performed By: #### CMP #### [facility] [address] [address] Ghulam KarenBilirubin [Mass/Vol]0.5 mg/dLNormal0.2-1.3The [facility] Comment on above:Performed By: #### CMP #### [facility] [address] [place] [address] Ghulam KarenCalcium [Mass/Vol]9.1 mg/dLNormal8.4-10.2The [facility] Comment on above:Performed By: #### CMP #### [facility] [address] [address] Ghulam KarenChloride [Moles/Vol]104 mmol/YWnczaw55-847YzvSelect Medical Specialty Hospital [facility] Comment on above:Performed By: #### CMP #### [facility] [address] [address] Ghulam KarenCO2 [Moles/Vol]27.2 mmol/RTvxupx95.0-30.0The [facility] Comment on above:Performed By: #### CMP #### [facility] [address] [address] Ghulam KarenCreatinine [Mass/Vol]1.57 mg/dLCritically high0.52-1.04The [facility] HospitalComment on above:Performed By: #### CMP #### [facility] [address] [id number] Ghulam KarenEGFR-AF DOQKAFQD82 mL/min/1.72w8Riyjycmytr low>=60The [facility] HospitalComment on above:Performed By: #### CMP #### [facility] [address] [address] Ghulam KarenEGFR-NON AF ABZEFOEC91 mL/min/1.44r7Okckuwzhln low>=60The [facility] HospitalComment on above:Performed By: #### CMP #### [facility] [address] [address] Ghulam KarenGlobulin (S) [Mass/Vol]4.6 g/dLNoWVUMedicine Harrison Community HospitalComment on above:Performed By: #### CMP #### [facility] [address] [address] Ghulam KarenGlucose [Mass/Vol]209 mg/dLCritically zlii90-109Jsd [facility] HospitalComment on above:Performed By: #### CMP #### [facility] [address] [address] Ghulam KarenPotassium [Moles/Vol]3.7 mmol/LNormal3.4-5.0The [facility] Comment on above:Performed By: #### CMP #### [facility] [address] [address] Ghulam KarenProtein [Mass/Vol]7.3 g/dLNormal6.1-8.2The [facility] HospitalComment on above:Performed By: #### CMP #### [facility] [address] [address] Ghulam KarenSodium [Moles/Vol]138 mmol/GRvmtsk106-464Kry [facility] Comment on above:Performed By: #### CMP #### [facility] [address] [address] Ghulam KarenUrea nitrogen [Mass/Vol]28.0 mg/dLCritically high7.0-17.0The [facility] HospitalComment on above:Performed By: #### CMP #### [facility] [address] [address] Ghulam KarenUrea nitrogen/Creatinine [Mass ratio]17.8 mg/mgNoWVUMedicine Harrison Community HospitalComment on above:Performed By: #### CMP #### [facility] [address] [id number] Ghulam Reyes Vital Signs Date TimeVital SignValuePerforming YstnemdwzFpclpdns56-68-5197 15:40-0400Body mass index (BMI) [Ratio]24.65 kg/g2Ycnvlm Furlong DO Work Phone: [employer]10-22-2025 15:40-0400Body ewekuxmksxn36.1 [degF]Sacha Furlong DO Work Phone: [facility]10-22-2025 15:40-0400Body maugqg28.18 kgDennis Furlong DO Work Phone: [facility]10-22-2025 15:40-0400Diastolic blood hkxjujtt87 mm[Hg]Sacha Jaylong DO Work Phone: [facility]10-22-2025 15:40-0400Heart rate 78 /minDscarlettis Furlong DO Work Phone: [facility]10-22-2025 15:40-0400 Respiratory rate18 /minDennis Furlong DO Work Phone: [facility]10-22-2025 15:40-0763QmN5% (BldA) [Mass fraction]93 %Sachagregory Thompsonlong DO Work Phone: [facility]10-22-2025 15:40-0400Systolic blood wyyblxqo927 mm[Hg]Sachagregory Thompsonlong DO Work Phone: [facility]10-08-2025 10:07-0400Body iokfrp275.1 cmRa Marinelli MD Work Phone: [facility]10-08-2025 10:07-0400Body mass index (BMI) [Ratio]28.54 kg/x8ZdkwjrsRa Marinelli MD Work Phone: [employer]10-08-2025 10:07-0400Body xmcgspzishj04.81 [degF]Ra Marinelli MD Work Phone: [facility]10-08-2025 10:07-0400Body .8 kgRa Marinelli MD Work Phone: [facility] Fycuyv03-38-3638 15:52-0400Body mass index (BMI) [Ratio]28.32 kg/y8Kouveq Furlong DO Work Phone: [facility]09-30-2025 15:52-0400Body sjeznwhlhpk27.4 [degF]Sachagregory Thompsonlong DO Work Phone: [facility]09-30-2025 15:52-0400Body aftkbw12.2 kgDennis Jaylong DO Work Phone: [facility] Xhxsoi01-40-7595 15:52-0400Diastolic blood opqulfkq36 mm[Hg]Sachagregory Thompsonlong DO Work Phone: [facility]09-30-2025 15:52-0400Heart rate 75 /minDscarlettis aJylong DO Work Phone: [facility]09-30-2025 15:52-0400 Respiratory rate20 /minDscarlettis Jaylong DO Work Phone: [facility] Hrwbgr80-29-4212 15:52-5930ZtR5% (BldA) [Mass fraction]96 %Sacha Thompsonlong DO Work Phone: [facility]09-30-2025 15:52-0400Systolic blood zduaxkzp868 mm[Hg]Sacha Thompsonlong DO Work Phone: [facility]09-26-2025 21:07-0400Body mass index (BMI) [Ratio]28.56 kg/m2Ajoyfy Jaylong DO Work Phone: [facility] Xgswwg96-59-5275 21:07-0400Body nnpvbjisqii55.8 [degF]Sacha Jaylong DO Work Phone: [employer] Yqfzdv04-28-6304 21:07-0400Body gafsiz15.84 kgDengregory Thompsonlong DO Work Phone: [facility] [employer] Junmwd36-60-1969 21:07-0400Diastolic blood cgrqtaea05 mm[Hg]Sacha Furlong DO Work Phone: [facility] Qivqpt06-82-9622 21:07-0400Heart rate 95 /minDscarlettis Furlong DO Work Phone: [facility] [employer] Osffcj08-47-9615 21:07-0400 Respiratory rate20 /minDennis Furlong DO Work Phone: [facility] [employer] Wbhlef30-27-4730 21:07-1424SfV7% (BldA) [Mass fraction]96 %Sacha Thompsonlong DO Work Phone: [facility] [employer] Rzyuzs15-24-0590 21:07-0400Systolic blood eutktwbe064 mm[Hg]Sacha Thompsonlong DO Work Phone: [facility] [employer] Zgbwhe29-03-8814 15:04-0400Body mass index (BMI) [Ratio]29.77 kg/b4Tqfvjo Furlong DO Work Phone: [facility] [employer] Mmwcyf29-17-9988 15:04-0400Body imiwzrepekf17.71 [degF]Sacha Thompsonlong DO Work Phone: [facility] [employer] Klhjgc16-14-1731 15:04-0400Body qvyhks37.15 kgDengregory Thompsonlong DO Work Phone: [facility] Ffeops08-55-6499 15:04-0400Diastolic blood kojihbhb84 mm[Hg]Sacha Thompsonlong DO Work Phone: [facility] [employer] Cthcsb10-62-3658 15:04-0400Heart rate 81 /minDennis Furlong DO Work Phone: [facility] [employer] Fbmwlv75-96-4609 15:04-0400 Respiratory rate20 /minDennis Jaylong DO Work Phone: [facility]09-24-2025 15:04-6016ZzC7% (BldA) [Mass fraction]92 %Sacha Brownng DO Work Phone: [facility]09-24-2025 15:04-0400Systolic blood mm[Hg]Sacha Thompsonlong DO Work Phone: [phone]09-19-2025 23:23-0400Body mass index (BMI) [Ratio]28.26 kg/p2Mmeudm Furlong DO Work Phone: [phone]09-19-2025 23:23-0400Body gqpbdtttvxe42.2 [degF]Sacha Brownng DO Work Phone: [facility]09-19-2025 23:23-0400Body .02 kgSacha Brownng DO Work Phone: [facility]09-19-2025 23:23-0400Diastolic blood zgqqdryo45 mm[Hg]Sacha Brownng DO Work Phone: [facility]09-19-2025 23:23-0400Heart rate 80 /Madysonis Jaylong DO Work Phone: [facility]09-19-2025 23:23-0400 Respiratory rate19 /minDscarlettis Kevinng DO Work Phone: [facility]09-19-2025 23:23-3738CoC1% (BldA) [Mass fraction]93 %Sacha Brownng DO Work Phone: [facility]09-19-2025 23:23-0400Systolic blood mm[Hg]Sacha Brownng DO Work Phone: [facility]09-09-2025 23:15-0400Body mass index (BMI) [Ratio]30.82 kg/j2Xrhgsa Furlong DO Work Phone: [facility] [employer] Xxuofy57-08-9611 23:15-0400Body iwyswiutmbu49.3 [degF]Sacha Thompsonlong DO Work Phone: [facility] [employer] Ijkisk78-33-8636 23:15-0400Body zonvuv98.01 kgDennis Jaylong DO Work Phone: [facility] [employer] Iqwuld62-62-5111 23:15-0400Diastolic blood tivzwwxf97 mm[Hg]Sacha Thompsonlong DO Work Phone: [facility] [employer] Sdgekm57-04-0822 23:15-0400Heart rate 78 /Hortensia Thompsonlong DO Work Phone: [facility] [employer] Ylnuvw40-96-5796 23:15-0400 Respiratory rate18 /minDscarlettis Jaylong DO Work Phone: [facility] [facility] [id number] 23:15-1400RfL8% (BldA) [Mass fraction]94 %Sacha Thompsonlong DO Work Phone: [facility] Kolmgi74-07-9694 23:15-0400Systolic blood mmgklzve826 mm[Hg]Sacha Thompsonlong DO Work Phone: [facility] Wuzpeh39-31-7569 15:33-0400Body mass index (BMI) [Ratio]31.12 kg/m3Lmpetu Furlong DO Work Phone: [facility] Tfkash67-80-6989 15:33-0400Body jdrjtdyzuos92.49 [degF]Sacha Thompsonlong DO Work Phone: [facility] Ebbpsa48-01-6838 15:33-0400Body tweggl69.82 kgDennis Jaylong DO Work Phone: [facility] Pfvdhh98-19-1871 15:33-0400Diastolic blood ohqzdwob84 mm[Hg]Sacha Tohmpsonlong DO Work Phone: [facility] Vnaddw23-80-0239 15:33-0400Heart rate 86 /minDennis Furlong DO Work Phone: [facility]09-05-2025 15:33-0400 Respiratory rate18 /minDennis Furlong DO Work Phone: [facility]09-05-2025 15:33-2001CkB3% (BldA) [Mass fraction]91 %Sacha Furlong DO Work Phone: [facility]09-05-2025 15:33-0400Systolic blood qbcnpqoz98 mm[Hg]Sacha Furlong DO Work Phone: [facility]08-26-2025 11:36-0400Body mass index (BMI) [Ratio]27.99 kg/w7Xqtqpw Furlong DO Work Phone: [facility]08-26-2025 11:36-0400Body vnozphpbocn42.81 [degF]Sachagregory Thompsonlong DO Work Phone: [facility]08-26-2025 11:36-0400Body fdshus61.3 kgDennis Jaylong DO Work Phone: [facility]08-26-2025 11:36-0400Diastolic blood rttimouy19 mm[Hg]Sacha Furlong DO Work Phone: [facility]08-26-2025 11:36-0400Heart rate 70 /minDennis Furlong DO Work Phone: [facility]08-26-2025 11:36-0400 Respiratory rate16 /minDennis Furlong DO Work Phone: [facility]08-26-2025 11:36-0058ZvV3% (BldA) [Mass fraction]96 %Sacha Furlong DO Work Phone: [facility]08-26-2025 11:36-0400Systolic blood ciwnwizw148 mm[Hg]Sacha Thompsonlong DO Work Phone: [facility] Vzvfqr16-60-4836 16:24-0400Body mbfdyj299.1 cmSacha Thompsonlong DO Work Phone: [facility]08-22-2025 16:24-0400Body mbjotbdzqmw77.5 [degF]Sacha Thompsonlong DO Work Phone: [facility]08-22-2025 16:24-0400Diastolic blood fmjcudpl92 mm[Hg]Sacha Thompsonlong DO Work Phone: [facility]08-22-2025 16:24-0400Heart rate 67 /Hortensia Thompsonlong DO Work Phone: [facility]08-22-2025 16:24-0400 Respiratory rate18 /Hortensia Brownng DO Work Phone: [facility]08-22-2025 16:24-5756BlM3% (BldA) [Mass fraction]95 %Sacha Thompsonlong DO Work Phone: [facility]08-22-2025 16:24-0400Systolic blood iyvywyhi667 mm[Hg]Sacha Brownng DO Work Phone: [facility]08-21-2025 11:00-0400Body wnzqllqdwuv24.2 [degF]Felix Hallman MD Work Phone: [facility]08-21-2025 11:00-0400Diastolic blood prgvfbdo44 mm[Hg]Felix Hallman MD Work Phone: [facility]08-21-2025 11:00-0400Heart rate 77 /Guillermo Hallman MD Work Phone: [facility]08-21-2025 11:00-0400 Respiratory rate17 /Guillermo Hallman MD Work Phone: [facility]08-21-2025 11:00-2526OkH2% (BldA) [Mass fraction]93 %Felix Hallman MD Work Phone: [facility]08-21-2025 11:00-0400Systolic blood pxzspwpa166 mm[Hg]Felix Hallman MD Work Phone: [phone])[address]08-18-2025 18:15-0400Body .1 cmRujazmin Hallman MD Work Phone: [phone])[address]01 [address]08-18-2025 18:15-0400Body mass index (BMI) [Ratio]28.79 kg/q3FxnbiogFelix Hallman MD Work Phone: [phone]08-18-2025 18:15-0400Body .47 kgFelix Hallman MD Work Phone: [phone]07-23-2025 13:25-0400Body .1 cmMattkathy Echavarria PA Work Phone: [phone]07-23-2025 13:25-0400Body mass index (BMI) [Ratio]31.45 kg/i0Xpahtoh Echavarria PA Work Phone: 1([phone])27935 [address]07-23-2025 13:25-0400Body sickks93.73 kgMattfrancescow Echavarria PA Work Phone: 1(324)[address]135 [address]07-22-2025 13:03-0400Body bcbufz902.1 cmVj Gray SALES REPRESENTATIVE [employer] Work Phone: [facility]07-22-2025 13:03-0400Body mass index (BMI) [Ratio]30.65 kg/m2Vj Gray SALES REPRESENTATIVE [employer] Work Phone: [facility]07-22-2025 13:03-0400Body foqiankztnf84.7 [degF]Vj Isaac SALES REPRESENTATIVE [employer] Work Phone: [facility]07-22-2025 13:03-0400Body whccka48.55 kgVj Gray SALES REPRESENTATIVE [employer] Work Phone: [facility]07-22-2025 13:03-0400Diastolic blood mm[Hg]Vj Gray SALES REPRESENTATIVE [employer] Work Phone: [facility]07-22-2025 13:03-0400Heart rate 67 /minVj Gray SALES REPRESENTATIVE [employer] Work Phone: [facility]07-22-2025 13:03-0400 Respiratory rate18 /minVj Gray SALES REPRESENTATIVE [employer] Work Phone: [facility]07-22-2025 13:03-2562FdT4% (BldA) [Mass fraction]95 %Vj Gray SALES REPRESENTATIVE [employer] Work Phone: [facility]07-22-2025 13:03-0400Systolic blood qywmvtyz623 mm[Hg]Vj Gray SALES REPRESENTATIVE [employer] Work Phone: [facility]07-01-2025 15:20-0400Heart rate 98 /minFelix Hallman MD Work Phone: [facility]07-01-2025 15:20-9011AzG5% (BldA) [Mass fraction]94 %Felix Hallman MD Work Phone: [facility]07-01-2025 11:05-0400Body fsqsvfylaeq97.1 [degF]Felix Hallman MD Work Phone: [facility]07-01-2025 11:05-0400Diastolic blood hdakjolh96 mm[Hg]Felix Hallman MD Work Phone: [facility]07-01-2025 11:05-0400 Respiratory rate16 /minFelix Hallman MD Work Phone: 1(292)911-[address] [place], [place] 3686607-01-2025 11:05-0400Systolic blood mm[Hg]Felix Hallman MD Work Phone: [phone])[address]07-01-2025 03:15-0400Body mass index (BMI) [Ratio]30.93 kg/y8WzbpmqlFelix Hallman MD Work Phone: 1(520)[address]07-01-2025 03:15-0400Body mublyi44.3 kgFelix Hallman MD Work Phone: 1(206)[address]06-29-2025 16:20-0400Body .1 cmRujazmin Hallman MD Work Phone: 1(863)54601 [address]06-29-2025 11:23-3638EvT3% (BldA) [Mass fraction]92 %Felix Hallman MD Work Phone: [phone]06-29-2025 11:23-8092JfW2% (BldA) [Mass fraction]67 %Felix Hallman MD Work Phone: [phone]06-29-2025 11:21-3276VoJ1% (BldA) [Mass fraction]67 %MARC RIVEROMercy Health Allen HospitalComment on above:Performed By: #### ABG ####[facility] ([address] [address] [id number] 09:01-0400Body rrpmyq583.1 cm Pam RICHEY Work Phone: [facility]05-21-2025 09:01-0400Body mass index (BMI) [Ratio]30.79 kg/m2DryisenPam RICHEY Work Phone: [facility]05-21-2025 09:01-0400Body koxdnuvwjin60.7 [degF]Pam RICHEY Work Phone: [facility]05-21-2025 09:01-0400Body .92 kgPam RICHEY Work Phone: [facility]05-21-2025 09:01-0400Diastolic blood zxrwsnvy74 mm[Hg]Pam RICHEY Work Phone: [facility]05-21-2025 09:01-0400Heart rate 88 /minPam RICHEY Work Phone: [facility]05-21-2025 09:01-0400 Respiratory rate20 /minPam RICHEY Work Phone: [facility]05-21-2025 09:01-8665NsW8% (BldA) [Mass fraction]93 %Pam RICHEY Work Phone: [facility]05-21-2025 09:01-0400Systolic blood ttqepdij015 mm[Hg]Pma RICHEY Work Phone: [facility]05-20-2025 08:04-0400Body eacisa523.[address] [place], [place] 0400205-20-2025 08:04-0400Body mass index (BMI) [Ratio]30.89 kg/m2Pfo [address] [place], [place] 0400205-20-2025 08:04-0400Body kzkzwytfztf79.01 [degF]Pfo [address] [place], [place] 0400205-20-2025 08:04-0400Body .[address] [place], [place] 0400205-20-2025 08:04-0400Diastolic blood owjzlspw14 mm[Hg]Pfo [address] [place], [place] 0400205-20-2025 08:04-0400Heart rate81 /minP[address]05-20-2025 08:04-0400Respiratory rate16 /minPfo 4[facility]05-20-2025 08:04-0958EnY1% (BldA) [Mass fraction]98 %Pfo 4[facility]05-20-2025 08:04-0400Systolic blood myewxiop223 mm[Hg] Pfo 4[facility]05-16-2025 08:01-0400Body hsueit607.1 cmPfo 1 [facility]05-16-2025 08:01-0400Body mass index (BMI) [Ratio]31.15 kg/m2Pfo [address] [place], [place] 5320205-16-2025 08:01-0400Body etpgkgmkqcv67.01 [degF]Pfo [address] [place], [place] 5320205-16-2025 08:01-0400Body vidwxh00.91 kgPfo 1 [facility]05-16-2025 08:01-0400Diastolic blood nddokbml04 mm[Hg]Pfo [address] [place], [place] 5320205-16-2025 08:01-0400Heart rate79 /minPfo [address] [place], [place] 5320205-16-2025 08:01-0400Respiratory rate15 /minPfo [address] [place], [place] 5320205-16-2025 08:01-7723FlZ2% (BldA) [Mass fraction]94 %Pfo [address] [place], [place] 5320205-16-2025 08:01-0400Systolic blood tyxyaufj351 mm[Hg]Pfo [address] [place], [place] 5320205-14-2025 08:07-0400Body hofsnm009.[address] [place], [place] 5320205-14-2025 08:07-0400Body mass index (BMI) [Ratio]31.32 kg/m2Pfo 1 [facility]05-14-2025 08:07-0400Body mfmlpkirfps68.9 [degF]Pfo 1 [facility]05-14-2025 08:07-0400Body orxmcf19.[address] [place], [place] 5320205-14-2025 08:07-0400Diastolic blood rykahwxo59 mm[Hg]Pfo 1 [facility]05-14-2025 08:07-0400Heart rate99 /minPfo [address] [place], [place] 5320205-14-2025 08:07-0400Respiratory rate22 /minPfo [address] [place], [place] 5320205-14-2025 08:07-7464JbI9% (BldA) [Mass fraction]93 %Pfo [address] [place], [place] 5320205-14-2025 08:07-0400Systolic blood ecslrvpe74 mm[Hg]Pfo [address] [place], [place] 5320205-12-2025 09:08-0400Body .1 [facility] [address] [place] [address] 03-26-2025 09:08-0400Body mass index (BMI) [Ratio]29.95 kg/m2fo [address] [place], [place] 0400205-12-2025 09:08-0400Body nkhidvviiiz81.6 [degF]Pfo [address] [place], [place] 0400205-12-2025 09:08-0400Body ktdgau99.[address] [place], [place] 0400205-12-2025 09:08-0400Diastolic blood mm[Hg]Pfo [address] [place], [place] 0400205-12-2025 09:08-0400Heart rate77 /minPfo [address] [place] [address] 03-26-2025 09:08-0400Respiratory rate18 /minPfo [address] [place] [address] 03-26-2025 09:08-1847XvL8% (BldA) [Mass fraction]98 %Pfo [address] [place], [place] 0400205-12-2025 09:08-0400Systolic blood envsqwur151 mm[Hg]Pfo [address] [place], [place] 0400205-08-2025 08:15-0400Body teuiuk979.[address]05-08-2025 08:15-0400Body mass index (BMI) [Ratio]32.25 kg/m2fo [address] [place], [place] 5835305-08-2025 08:15-0400Body xbjpnktrcyq24.1 [degF]Pfo [address] [place], [place] 5835305-08-2025 08:15-0400Body ojllze16.[address] [place], [place] 0400205-08-2025 08:15-0400Diastolic blood mm[Hg]Pfo 4 [facility]05-08-2025 08:15-0400Heart rate77 /minPfo [address] [place], [place] 0400205-08-2025 08:15-0400Respiratory rate16 /minPfo [address] [place], [place] 0400205-08-2025 08:15-8329SlT6% (BldA) [Mass fraction]94 %Pfo 4[facility]05-08-2025 08:15-0400Systolic blood uuqllzvu151 mm[Hg]Pfo 4[facility]05-06-2025 08:36-0400Body dbpqnu097.1 [facility] [address] [place], [place] 0400205-06-2025 08:36-0400Body mass index (BMI) [Ratio]31.98 kg/m2fo [address] [place], [place] 5835305-06-2025 08:36-0400Body melthtunwpn56.3 [degF]Pfo [address] [place], [place] 5835305-06-2025 08:36-0400Body lxacon94.[address] [place], [place] 0400205-06-2025 08:36-0400Diastolic blood yxzyamwj86 mm[Hg]Pfo [address] [place], [place] 5835305-06-2025 08:36-0400Heart rate85 /minPfo [address] [place], [place] 0400205-06-2025 08:36-0400Respiratory rate16 /minPfo [address] [place], [place] 0400205-06-2025 08:36-7697NkR0% (BldA) [Mass fraction]99 %Pfo [address] [place], [place] 0400205-06-2025 08:36-0400Systolic blood wjqdyczq451 mm[Hg]Pfo [address] [place], [place] 0400204-30-2025 08:50-0400Body gvdvde639.[address]04-30-2025 08:50-0400Body mass index (BMI) [Ratio]31.92 kg/m2fo [address] [place], [place] 5835304-30-2025 08:50-0400Body dnimsexkjko53.1 [degF]Pfo [address] [place], [place] 5835304-30-2025 08:50-0400Body cugeys60 kgPfo [address] [place], [place] 0400204-30-2025 08:50-0400Diastolic blood vqiqnwyv72 mm[Hg]Pfo 4 [facility]04-30-2025 08:50-0400Heart rate82 /minPfo [address] [place], [place] 0400204-30-2025 08:50-0400Respiratory rate22 /minPfo [address] [place], [place] 0400204-30-2025 08:50-5358AvC2% (BldA) [Mass fraction]97 %Pfo [address] [place], [place] 0400204-30-2025 08:50-0400Systolic blood oyrbuwgu564 mm[Hg]Pfo [address] [place], [place] 0400204-28-2025 08:07-0400Body .49 [degF][address]04-28-2025 08:07-0400Diastolic blood mm[Hg]Pfo [address] [place], [place] 5835304-28-2025 08:07-0400Heart rate92 /minPfo [address] [place], [place] 0400204-28-2025 08:07-0400Respiratory rate22 /minPfo [address] [place], [place] 0400204-28-2025 08:07-4818YoW0% (BldA) [Mass fraction]96 %[address]04-28-2025 08:07-0400Systolic blood ypnycdxf861 mm[Hg]o [address] [place], [place] 0400203-13-2025 14:15-0400Body .1 John Muñoz MD Work Phone: [facility]03-13-2025 14:15-0400Body mass index (BMI) [Ratio]31.78 kg/p0IohmuCasimiro Muñoz MD Work Phone: [facility]03-13-2025 14:15-0400Body .1 [degF]Casimiro Muñoz MD Work Phone: [facility]03-13-2025 14:15-0400Body dyjzom26.64 kgCasimiro Muñoz MD Work Phone: [facility]03-13-2025 14:15-0400Diastolic blood eidxxrnf80 mm[Hg]Casimiro Muñoz MD Work Phone: [facility] Ozioha42-88-4899 14:15-0400Heart rate 86 /minCasimiro Muñoz MD Work Phone: [facility] Wpwecg01-00-6157 14:15-0400 Respiratory rate18 /minCasimiro Muñoz MD Work Phone: [facility]03-13-2025 14:15-4826CoD0% (BldA) [Mass fraction]97 %Casimiro Muñoz MD Work Phone: [facility]03-13-2025 14:15-0400Systolic blood nkakgzcg180 mm[Hg]Casimiro Muñoz MD Work Phone: [facility]03-10-2025 13:53-0400Body lfdgyp542.1 cmVneil Mcneilillo SALES REPRESENTATIVE [employer] Work Phone: [facility] Byleqs98-78-2854 13:53-0400Body mass index (BMI) [Ratio]31.88 kg/p2AgtnontPam Mcneilillo SALES REPRESENTATIVE [employer] Work Phone: [facility] Zasgyh88-79-0406 13:53-0400Body lorhpnrkwup87.2 [degF]Pam Stinson SALES REPRESENTATIVE [employer] Work Phone: [facility] Yqmfpa65-71-4031 13:53-0400Body ylylhr67.91 kgValerie Stinson SALES REPRESENTATIVE [employer] Work Phone: [facility] Zswkqg98-42-3013 13:53-0400Diastolic blood mm[Hg]Pam Mcneilillo SALES REPRESENTATIVE [employer] Work Phone: [facility] Dejuru50-34-8472 13:53-0400Heart rate 91 /minInarie Stinson SALES REPRESENTATIVE [employer] Work Phone: [facility]03-10-2025 13:53-0400 Respiratory rate18 /minInarie Stinson SALES REPRESENTATIVE [employer] Work Phone: [facility]03-10-2025 13:53-6452UiA9% (BldA) [Mass fraction]92 %Pam Stinson APRN-[employer] Work Phone: [facility]03-10-2025 13:53-0400Systolic blood mm[Hg]Pam RICHEY Work Phone: [facility]03-06-2025 13:36-0500Diastolic blood qqkvlyfw49 mm[Hg][facility] Vnlrdxtxkq40-30-8342 13:36-0500 Systolic blood swoxcytw42 mm[Hg][facility]01-14-2025 14:42-0500Body smuxrf811.1 cmVneil Stinson APRN-[employer] Work Phone: [facility]01-14-2025 14:42-0500Body mass index (BMI) [Ratio]32.88 kg/n0LxxpexgPam Stinson APRN-[employer] Work Phone: [facility]01-14-2025 14:42-0500Body foewawzqscf40.4 [degF]Pam Stinson APRN-[employer] Work Phone: [facility]01-14-2025 14:42-0500Body alkvlo45.63 kgPam Stinson APRN-[employer] Work Phone: [facility]01-14-2025 14:42-0500Diastolic blood wkcazqpm62 mm[Hg]Pam Stinson [employer] Work Phone: [facility]01-14-2025 14:42-0500Heart rate 79 /minPam Stinson [employer] Work Phone: [facility]01-14-2025 14:42-0500 Respiratory rate20 /minPam Stinson [employer] Work Phone: [facility]01-14-2025 14:42-6227AsW3% (BldA) [Mass fraction]96 %Pam Stinson SALES REPRESENTATIVE [employer] [facility]: [facility]01-14-2025 14:42-0500Systolic blood zegmlvsw928 mm[Hg]Pam Av SALES REPRESENTATIVE [employer] Work Phone: [facility] Eueang00-14-1096 13:54-0500Body .1 Umang Moran MD Work Phone: [facility]01-10-2025 13:54-0500Body mass index (BMI) [Ratio]32.45 kg/h3NqxxmdRadha Moran MD Work Phone: 1(246)223-[employer]01-10-2025 13:54-0500Body ogpqyc80.45 kgRadha Moran MD [facility]: [facility]01-10-2025 13:54-0500Diastolic blood xqizxnpq77 mm[Hg]Radha Moran MD [facility]: [facility]01-10-2025 13:54-0500Heart rate 51 /minRadha Moran MD Work Phone: [facility]01-10-2025 13:54-1696JnL1% (BldA) [Mass fraction]95 %Radha Moran MD [facility]: [facility]01-10-2025 13:54-0500Systolic blood ulaxbwvi699 mm[Hg]Radha Moran MD Work Phone: [facility] Cuspxk76-78-9374 08:15-0400Body dodopw416.1 cmVneil Stinson SALES REPRESENTATIVE [employer] Work [facility]: [facility]10-14-2024 08:15-0400Body mass index (BMI) [Ratio]34.35 kg/r9BbwjakpPam Stinson SALES REPRESENTATIVE [employer] Work Phone: [facility] Kbnjdg25-12-6631 08:15-0400Body ddoqvwkiqbz09.5 [degF]Pam Stinson SALES REPRESENTATIVE [employer] Work Phone: [facility] Cgrjyv48-04-7548 08:15-0400Body adxqzk29.62 kgPam Stinson APRN[employer] Work Phone: [facility]10-14-2024 08:15-0400Diastolic blood ultelshs14 mm[Hg]Pam tSinson [employer] Work Phone: [facility]10-14-2024 08:15-0400Heart rate 74 /minPam Stinson [employer] Work Phone: [facility]10-14-2024 08:15-0400 Respiratory rate18 /minPam Stinson [employer] Work Phone: [facility]10-14-2024 08:15-8762RnZ0% (BldA) [Mass fraction]90 %Pam Stinson [employer] Work Phone: [facility]10-14-2024 08:15-0400Systolic blood mftjjzem283 mm[Hg]Pam Stinson [employer] Work Phone: [facility]08-07-2024 14:48-0400Body gpmoby900.1 cmVneil Stinson APR[employer] Work Phone: [facility]08-07-2024 14:48-0400Body mass index (BMI) [Ratio]33.51 kg/y9CgrldcgPam Stinson APR[employer] Work Phone: [facility]08-07-2024 14:48-0400Body .7 [degF]Pam Stinson [employer] Work Phone: [facility]08-07-2024 14:48-0400Body fypvoa25.35 kgPam Stinson APR[employer] Work Phone: [facility]08-07-2024 14:48-0400Diastolic blood gihwhtbc56 mm[Hg]Pam Stinson [employer] Work Phone: [facility] Qudetv09-97-7859 14:48-0400Heart rate 66 /minPam Stinson APR[employer] Work Phone: [facility]08-07-2024 14:48-6937PlB5% (BldA) [Mass fraction]97 %Pam Stinson [employer] Work Phone: [facility]08-07-2024 14:48-0400Systolic blood yywbtejl509 mm[Hg]Pam Stinson [employer] Work Phone: [facility]06-19-2024 14:32-0400Body olqukd859.1 Ryann Stinson APR[employer] Work Phone: [facility]06-19-2024 14:32-0400Body mass index (BMI) [Ratio]34.53 kg/c1NtuhlqnPam Stinson APR[employer] Work Phone: [facility]06-19-2024 14:32-0400Body mwmjkrlnyjl63 [degF]Pam Stinson [employer] Work Phone: [facility]06-19-2024 14:32-0400Body mrhmax77.12 kgPam Stinson APR[employer] Work Phone: [facility]06-19-2024 14:32-0400Diastolic blood ogxeqsue02 mm[Hg]Pam Stinson [employer] Work Phone: [facility]06-19-2024 14:32-0400Heart rate 71 /minPam Stinson APR[employer] Work Phone: [facility]06-19-2024 14:32-0400 Respiratory rate18 /minPam Stinson APR[employer] Work Phone: [facility]06-19-2024 14:32-5891KgL0% (BldA) [Mass fraction]94 %Pam Stinson SALES REPRESENTATIVE [employer] Work Phone: [facility]06-19-2024 14:32-0400Systolic blood mm[Hg]Pam Stinson SALES REPRESENTATIVE [employer] Work Phone: [facility] Xaotkv69-21-5170 15:13-0400Body gegwrm195.1 John Muñoz MD Work Phone: [facility]04-25-2024 15:13-0400Body mass index (BMI) [Ratio]33.08 kg/f7KlucwCasimiro Muñoz MD Work Phone: [facility]04-25-2024 15:13-0400Body bjvpluysbcl43.59 [degF]Casimiro Muñoz MD Work Phone: [facility] Gkrbzh69-22-5720 15:13-0400Body .17 kgCasimiro Muñoz MD Work Phone: [facility] Yajkki24-61-3154 15:13-0400Diastolic blood bzeamano04 mm[Hg]Casimiro Muñoz MD Work Phone: [facility]04-25-2024 15:13-0400Heart rate 104 /minCasimiro Muñoz MD Work Phone: [facility] [phone] 15:13-0400 Respiratory rate24 /minCasimiro Muñoz MD Work Phone: [facility]04-25-2024 15:13-9841DlA4% (BldA) [Mass fraction]97 %Casimiro Muñoz MD Work Phone: [facility] [employer] [id number] 15:13-0400Systolic blood cokgiwek870 mm[Hg]Casimiro Muñoz MD Work Phone: [facility] [employer] [phone] 13:00-0400Body xkyqac383.1 cmVronaldkyara McneilStinson SALES REPRESENTATIVE [employer] Work Phone: [facility] [employer] [phone] 13:00-0400Body mass index (BMI) [Ratio]33.35 kg/l0IozyumpPam RICHEY Work Phone: [facility]03-27-2024 13:00-0400Body qfjumfrfntm95.2 [degF]Pam RICHEY Work Phone: [facility]03-27-2024 13:00-0400Body hiqyyf43.9 kgPam Stinson APRN-BARTOLO Work Phone: [facility]03-27-2024 13:00-0400Diastolic blood mm[Hg]Pam Stinson APRN-BARTOLO Work Phone: [facility]03-27-2024 13:00-0400Heart rate 79 /minPam Stinson APRN-BARTOLO Work Phone: [facility]03-27-2024 13:00-0400 Respiratory rate20 /minPam Stinson APRN-BARTOLO Work Phone: [facility]03-27-2024 13:00-4168QhB0% (BldA) [Mass fraction]97 %Pam Stinson APRN-BARTOLO Work Phone: [facility]03-27-2024 13:00-0400Systolic blood aaoepfwz846 mm[Hg]Pam Stinson APRN-BARTOLO Work Phone: [facility]01-31-2024 14:51-0500Body fatkfc258.1 cmVneil Stinson APRN-BARTOLO Work Phone: [facility]01-31-2024 14:51-0500Body mass index (BMI) [Ratio]31.02 kg/k0ZdmnqzhPam Stinson APRN-[employer] Work Phone: [facility] [employer] [phone] 14:51-0500Body kzpmspwfcnu31.29 [degF]Pam Stinson APRN-[employer] Work Phone: [facility]01-31-2024 14:51-0500Body syenoj57.54 kgPam Stinson APRN-[employer] Work Phone: [facility]01-31-2024 14:51-0500Diastolic blood mm[Hg]Pam Stinson APRN[employer] Work Phone: [facility]01-31-2024 14:51-0500Heart rate 89 /minPam Stinson APRN-[employer] Work Phone: [facility]01-31-2024 14:51-6980LjQ3% (BldA) [Mass fraction]94 %Pam Stinson APRN[employer] Work Phone: [facility]01-31-2024 14:51-0500Systolic blood zjzlwmea603 mm[Hg]Pam Stinson APRN-[employer] Work Phone: [facility]01-11-2024 13:56-0500Body wtjben673.1 John Muñoz MD Work Phone: [facility]01-11-2024 13:56-0500Body mass index (BMI) [Ratio]31.45 kg/h9OyuhoCasimiro Muñoz MD Work Phone: [facility]01-11-2024 13:56-0500Body fbumnjsdyio19 [degF]Casimiro Muñoz MD Work Phone: [facility]01-11-2024 13:56-0500Body tdnoxq10.73 kgCasimiro Muñoz MD Work Phone: [facility]01-11-2024 13:56-0500Diastolic blood jkxlzufz08 mm[Hg]Casimiro Muñoz MD Work Phone: [facility]01-11-2024 13:56-0500Heart rate 65 /minCasimiro Muñoz MD Work Phone: [facility]01-11-2024 13:56-0500 Respiratory rate16 /Keshia Muñoz MD Work Phone: [facility]01-11-2024 13:56-8387PqT2% (BldA) [Mass fraction]91 %Casimiro Muñoz MD Work Phone: [facility]01-11-2024 13:56-0500Systolic blood gxiotilo533 mm[Hg]Casimiro Muñoz MD Work Phone: [facility]03-01-2023 07:13-0500Body ndqtjpaxlcp75.01 [degF]Georges Doe MD Work Phone: [facility] [employer]03-01-2023 07:13-0500Diastolic blood xiqfzfai91 mm[Hg]Georges Doe MD Work Phone: [facility] [employer]03-01-2023 07:13-0500Heart rate57 /Stephany Doe MD Work Phone: [facility] [employer]03-01-2023 07:13-0500 Respiratory rate18 /Stephany Doe MD Work Phone: [facility] [employer] [facility]FAIRHILLCakeStyleIFIBCB58-08-4713 07:13-5433EhZ7% (BldA) [Mass fraction]98 %Georges Doe MD Work Phone: [facility] [employer]03-01-2023 07:13-0500Systolic blood ylouekvx188 mm[Hg]Georges Doe MD Work Phone: [facility] [employer]01-27-2023 07:58-0500Body fzwkzwurcwz97.8 [degF]Georges Doe MD Work Phone: [facility] [employer]01-27-2023 07:58-0500Diastolic blood sjaucirr12 mm[Hg]Georges Doe MD Work Phone: [facility] [employer]01-27-2023 07:58-0500Heart rate85 /Stephany Doe MD Work Phone: [facility] [id number] 07:58-0500 Respiratory rate16 /minGeorges Doe MD Work Phone: [facility] [id number] 07:58-5103LsE2% (BldA) [Mass fraction]97 %Georges Doe MD Work Phone: [facility] [id number] 07:58-0500Systolic blood umudajgt822 mm[Hg]Georges Doe MD Work Phone: [facility] IOANRG05-17-1846 11:44-0500Body afztae530.1 Uzair Doe MD Work Phone: [facility] [id number] 11:44-0500Body mass index (BMI) [Ratio]34.61 kg/u0GnezeGeorges Doe MD Work Phone: [facility] [employer] [facility] [id number] 11:44-0500Body ooghew68.35 kgGeorges Doe MD Work Phone: [facility]PD[facility] [employer] [facility] [id number] 11:44-0500Body yllebk952.1 cmStv [facility] [id number] 11:44-0500Body mass index (BMI) [Ratio]34.95 kg/m2Stv [facility] [id number] 11:44-0500Body kcmwclqzbni34.4 [degF]Stv [facility] [id number] 11:44-0500Body .25 kgStv [facility]PD[facility] [employer] [facility] [id number] 11:44-0500Diastolic blood wfajrkov90 mm[Hg]Stv [facility]PD[facility] [employer] [facility] [id number] 11:44-0500Heart rate60 /minStv [facility]PD[facility] [employer] [facility] [id number] 11:44-0500Respiratory rate15 /minStv [facility]PD[facility] [employer] [facility]FAIRHILLCakeStyleJJXKGV40-93-8122 11:44-8294HhN4% (BldA) [Mass fraction]93 % Stv [facility] PrezmaCSUTPM96-70-3120 11:44-0500Systolic blood rsizinub641 mm[Hg]Stv [facility] Prezma Encounters Encounter DateEncounter TypeCare ProviderFacilityStart: 09-05-2025 End: 53-74-9160eqhwheeapyJohrow G Jayradu DO Work Phone: [facility] - Family MedicineComment on above: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 (CMS-HCC) (Primary Dx); Hypertensive heart and chronic kidney disease with heart failure and stage 1 through stage 4 chronic kidney disease, or unspecified chronic kidney disease (CMS-HCC); Nausea and vomiting, unspecified vomiting typeStart: 09-02-2025 End: 83-50-8547KhwdvvTjarPranay Gray APRN-CLOTH HAULER Work Phone: [facility] - Family MedicineStart: 08-31-2025 End: 56-58-3610njyoqhkwqiRUUWJ N [facility] MED[facility] CENTERKenya [facility] HospitalStart: 08-22-2025 End: 99-03-4136Kvwvap follow up visit related to original German Marinelli MD Work Phone: [facility] Orthopedics/Trauma and Adult ReconstructionComment on above:Lesion of left femur (Primary Dx); 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Start: 08-22-2025 End: 03-31-8091hqqfskkymjXRFZMYAFracisco Hawthorne [facility] HospitalStart: 08-14-2025 End: 44-32-1607LgunmcCedric Alonzo [facility] Orthopedics/Trauma and Adult ReconstructionComment on [...] or unspecified chronic kidney disease ([facility]); Anemia, unspecified typeStart: 08-10-2025 End: 14-95-1228nitwtfqzznEyekrq G Furlong DO Work Phone: [facility] Internal Medicine - Family MedicineComment on above:Chronic obstructive pulmonary disease, unspecified COPD type ([facility]) (Primary Dx); Hypertensive heart and chronic kidney disease with heart failure and stage 1 through stage 4 chronic kidney disease, or unspecified chronic kidney disease ([facility]-HCC); Chronic diastolic congestive heart failure ([facility]); Pathological fracture, hip, unspecified, subsequent encounter for fracture with routine healingStart: 08-08-2025 End: 37-73-2130mycoxkpocxIgrviw G Furlong DO Work Phone: [facility] Internal Medicine - Family [facility] Medical CenterComment on above:Closed nondisplaced fracture of lesser trochanter of right femur with delayed healing (Primary Dx); Stage 3b chronic kidney disease ([facility]); Type 2 diabetes mellitus with stage 4 chronic kidney disease, without long-term current use of insulin ([facility]); Chronic diastolic congestive heart failure ([facility])Start: 08-06-2025 End: 28-61-1782Ghfmnjvubt and management of [facility] Hospitaltart: 08-03-2025 End: 81-01-8017fvgfbpakdlFgjlai G Furlong DO Work Phone: [facility] Internal Medicine - Family MedicineComment on above:Lesion of left femur (Primary Dx); 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; Chronic diastolic congestive heart failure ([facility]); S/p TAVR (transcatheter aortic valve replacement), bioprosthetic; Hypertensive heart and chronic kidney disease with heart failure and stage 1 through stage 4 chronic kidney disease, or unspecified chronic kidney disease ([facility])Start: 08-02-2025 End: 68-61-0366Iebmoeoor encounterSherrochelle Ybarra [facility]opedics/Trauma and Adult ReconstructionStart: 08-01-2025 End: 90-47-1912CgtsuzVhox Cooper [facility]ITALPro[facility]ica [facility] Internal Medicine - Family MedicineStart: 08-01-2025 End: 24-50-0362Ukeplu outpatient visit 40 minutesRa Marinelli MD Work Phone: [facility] Orthopedics/Trauma and Adult ReconstructionComment on above: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, subsequent encounter (Primary Dx); Lesion of left femurStart: 07-31-2025 End: 96-79-9640Hgvdupnespclp Zehra Carnes [facility] - Medical OncologyStart: 07-31-2025 End: 27-44-5746wrdulebozaVSUONKFDoctors Hospitaltart: 07-30-2025 End: 36-15-2596QnkrskXdcm Cooper CMAProMedica Physicians Internal Medicine - Family MedicineComment on above: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); Insomnia, unspecified typeStart: 07-27-2025 End: 23-48-6678Aomidehke encounterCinda Browning RN Work Phone: [facility] Internal Medicine - Family MedicineStart: 07-25-2025 End: 39-32-0890Rzgqyclrr encounterViridiana Mathews MD Work Phone: [facility] Oncology, A Department of [facility]on HospitalComment on above:AppointmentStart: 07-24-2025 End: 30-99-3466qofabrvncpKcmtdt G Furlong DO Work Phone: [facility] [...] unspecified chronic kidney disease (CMS-HCC)Start: 07-20-2025 End: 51-94-7565kitunkvvhcObfbal G Furlong DO Work Phone: [facility] Internal Medicine - Family MedicineComment on above:Pathological fracture of right hip with routine healing, unspecified pathological cause, subsequentencounter (Primary Dx); Closed nondisplaced fracture of pelvis with routine healing, unspecified part of pelvis, subsequentencounter; Mixed diabetic hyperlipidemia associated with type 2 diabetes mellitus ([facility]-HCC); Hypertensive heart and chronic kidney disease with heart failure and stage 1 through stage 4 chronic kidney disease, or unspecified chronic kidney disease ([facility]-H[facility])Start: 07-19-2025 End: 59-73-9407fksoxwdqchBAWB D KROTZERProMedica Wheatfield HospitalStart: 07-13-2025 End: 02-90-4152eqsuhkiwpkRDWB D KROTZERProOur Lady Of Mercy Hospitalca [facility] HospitalStart: 25-18-9161Kkonrjclk for preprocedural respiratory examinationMARIA GUADALUPE Villatoro [facility] HospitalStart: 07-12-2025 End: 93-17-6811Augmcyveyv and management of inpatientJAGRUTI NIMIT SHAHProDayton Children'S Hospital HospitalStart: 07-10-2025 End: 10-36-6667qryhahutstCQBL Vicki COBOSZERProMercy Health – [facility] Jewish Hospital HospitalStart: 07-10-2025 End: 80-24-8384Uzdivtagusto FRIEND Work Phone: NOMK [facility] OrthopaedicsStart: 07-10-2025 End: 61-86-6384Rwkujzsusan FRIEND Work Phone: noms [facility] OrthopaedicsStart: 07-10-2025 End: 36-84-3842bvncrchtaoQNECKKP J MEYERNot AvailableComment on above: Hypertensive heart [...] hip, sequela; Rhinitis, unspecified typeStart: 07-10-2025 End: 42-20-1664Bsfokl outpatient visit 25 minutesMattkathy FRIEND Work Phone: NOSa[facility] Hospital OrthopaedicsComment on above:Acute right hip pain (Primary Dx); Closed avulsion fracture of right hip with routine healing, subsequent encounter; Intertrochanteric fracture of right hip, closed, initial encounter (HCC)Start: 07-08-2025 End: 12-90-3100Lbxapo-up encounterCleveland Clinic Children's Hospital for Rehabilitation - EmergencyComment on above:Blood culture, Blood cultureStart: 07-06-2025 End: 70-32-6255xgxmahghagCzjemp G Furlong DO Work Phone: [facility] Medicine - Family MedicineComment on above:Chronic diastolic congestive heart failure (CMS-HCC) (Primary Dx); Hypertensive heart and chronic kidney disease with heart failure and stage 1 through stage 4 chronic kidney disease, or unspecified chronic kidney disease ([facility]-HCC); Intractable nausea and vomiting; Urinary tract infection without hematuria, site unspecifiedStart: 07-05-2025 End: 66-02-1963Ybllcwlmi encounterViridiana Mathews MD Work Phone: [facility] Oncology, A Department of [facility] Medical CenterComment on above:AppointmentStart: 07-03-2025 End: 01-62-4981mahaomfdfgQVRP D [facility] HospitalStart: 07-02-2025 End: 69-44-3715Dambsxeqms and management of inpatientJogeraldo Thibodeaux MD Work Phone: [place] [address] Med SurgComment on above:Adnexal mass (Primary Dx); Intractable nausea and vomiting; Type 2 diabetes mellitus without complication, without long-term current use of insulin ([facility]); Generalized weakness; Hypomagnesemia; Iron deficiency anemia due to chronic blood lossStart: 07-02-2025 End: 56-63-2270wlnfddblviGTOI D KROTZERTrinity Health System [facility] Campus HospitalStart: 06-25-2025 End: 50-72-2795yfzcyiurulRorjtrh D [facility] Work Phone: Start: 06-25-2025 End: 15-90-1875Wdbskebd ReferredRa Cohen DO-LAB [facility] Start: 06-21-2025 End: 66-93-8415Ivsswxbrz encounterMaabdirizak FRIEND Work Phone: noMS [facility] OrthopaedicsComment on above:wants to know if she can do outpatient wants to be referredStart: 06-18-2025 End: 81-48-3165Uvlzxyjai encounterMaabdirizak FRIEND Work Phone: noMS [facility] OrthopaedicsComment on above:OTC Tylenol not workingStart: 06-11-2025 End: 56-27-7393lvzrmmjbmfWIAK D KROTZERProMedica [facility]rington HospitalStart: 06-10-2025 End: 02-53-5274Dhdzrplht department patient visitKYLE D KROTZERProMedica Barrington HospitalStart: 06-08-2025 End: 48-92-7530Qahziuitl department patient visitKYLE D KROTZERProMedica Barrington HospitalStart: 06-06-2025 End: 36-63-8692Rnrbqd flowsYulisa FRIEND Work Phone: noms FB ORTHOPAEDICSStart: 06-06-2025 End: 85-39-8100Ctpxnq Samra FRIEND Work Phone: noms FB ORTHOPAEDICSStart: 06-06-2025 End: 57-14-8024Ncyker outpatient visit 15 minutesMaabdirizak FRIEND Work Phone: noms FB ORTHOPAEDICSComment on above:Acute right hip pain (Primary Dx); Acute pain of both hips; Closed avulsion fracture of right hip with routine healing, subsequent encounter Start: 06-06-2025 End: 07-06-9145qxkvtztxdkXPRUZYM J MEYERNot AvailableStart: 06-05-2025 End: 13-23-5289Tbeoheehcdav care manage srvc 14 day dischargeKyle D Krotzer SALES REPRESENTATIVE [employer]ATS-[employer]ER Work Phone: [facility] Phys[facility] Internal Medicine - Family MedicineComment on above:Hospital discharge follow-up (Primary Dx); Closed fracture of right hip, sequelaStart: 06-05-2025 End: 74-87-2637txgzxlitzvGVUJ D KROTZERSoutheast [facility] PPGStart: 06-04-2025 End: 84-69-2769zjokcaxbmyDWTNVMHSt. Francis Hospitaltart: 05-30-2025 End: 52-45-7293lbnwmaqjrrYTVP L [facility] Hospitaltart: 05-29-2025 End: 25-23-6171Tdshadrom department patient visitMICHAEL Carnes [facility] Hospitaltart: 05-28-2025 End: 48-62-3209gvxhhlntwyENMPGNGR JILRegency Hospital Cleveland Easttart: 05-22-2025 End: 85-07-9658zohyzyhotrCXQSGDYSt. Francis Hospitaltart: 05-15-2025 End: 39-39-8424tqiidcxyzrZJMVYJH T BRODERICKRegency Hospital Cleveland Easttart: 05-14-2025 End: 98-29-6181azgviiwcbsOAYQFT D WALTERSRegency Hospital Cleveland Easttart: 05-13-2025 End: 69-47-5133Bmvqoyesum and management of inpatientJekalin Santos Tiffany DO Work Phone: [facility] - Acute Care Comment on above:Acute respiratory failure with hypoxia ([facility]-HCC) (Primary Dx); Nondisplaced fracture of lesser trochanter of right femur, initial encounter for closed fracture ([facility]-HCC); Generalized weakness; Closed fracture of right hip, initial encounter ([facility]); Hypoxia; Type 2 diabetes mellitus with hypoglycemia without coma, with long-term current use of insulin (CMS-HCC)Start: 05-12-2025 End: 18-33-5341Ysayafbxv department patient visitMICHAEL Carnes [facility] Hospitaltart: 05-12-2025 End: 67-65-4832rdpczblzwhSDZN L [facility] Hospitaltart: 05-11-2025 End: 83-17-8646Rcumbkhdz department patient visitMICHAEL Carnes [facility] Hospitaltart: 05-09-2025 End: 18-00-8582Xsysscret department patient visitMICHAEL Carnes [facility] Hospitaltart: 05-01-2025 End: 70-54-6947puyjalaexbWWURXE ROY [facility] Centertart: 04-28-2025 End: 84-42-7164Ydmzscowt department patient visitDATIRSO SANCHEZ [facility] Hospitaltart: 04-05-2025 End: 62-61-9110dsnejzhsusOPAONE [facility] Start: 04-04-2025 End: 35-97-5972Koowfu outpatient visit 15 minutesPam Stinson APRN-BARTOLO Work Phone: [facility] - Family MedicineComment on above:Moderate major depression (CMS-HCC) (Primary Dx); Insomnia, unspecified type; Normal pressure hydrocephalus (CMS-HCC); Acute on chronic diastolic heart failure (CMS-HCC); Diabetes mellitus type 2, insulin dependent ([facility]-HCC)Start: 04-04-2025 End: 79-43-8630ftkkrgbgpbTVYILFJ J CASTILLOMary [facility] P[facility] Start: 04-03-2025 End: 99-86-3282hjfbdycddnHlp Infusion Chair [address] [place] [address] - Medical OncologyComment on above:Staphylococcus aureus bacteremia with sepsis (CMS-HCC) (Primary Dx); MRSA (methicillin resistant Staphylococcus aureus)Start: 04-01-2025 End: 26-47-0592wtcftudawgJjb Infusion Bed 1D[facility] - Medical OncologyComment on above:Staphylococcus aureus bacteremia with sepsis ([facility]-HCC) (Primary Dx); MRSA (methicillin resistant Staphylococcus aureus)Start: 03-30-2025 End: 80-44-1981vwaknhttowUbu Infusion Bed 1[facility] - Medical OncologyComment on above:Staphylococcus aureus bacteremia with sepsis ([facility]-HCC) (Primary Dx); MRSA (methicillin resistant Staphylococcus aureus)Start: 03-28-2025 End: 56-63-9478tczacgyyozHnd Infusion Bed 1DChrist[facility] [facility] OncologyComment on above:Staphylococcus aureus bacteremia with sepsis ([facility]-HCC) (Primary Dx); MRSA (methicillin resistant Staphylococcus aureus)Start: 03-26-2025 End: 19-09-9112hnwalrdrwzZqw Infusion Chair [address] [place] [address] OncologyComment on above:Staphylococcus aureus bacteremia with sepsis ([facility]-HCC) (Primary Dx); MRSA (methicillin resistant Staphylococcus aureus)Start: 03-24-2025 End: 80-11-7471Wgeuohaju department patient visitEncompass Health Rehabilitation Hospital of Readingtart: 03-24-2025 End: 66-24-2464uvlsjtaedjJxo Infusion Chair [address] [place] [address] OncologyComment on above:Staphylococcus aureus bacteremia with sepsis ([facility]-HCC) (Primary Dx); MRSA (methicillin resistant Staphylococcus aureus)Start: 56-79-9094zvfeijeahf PAM [facility] HospitalStart: 03-22-2025 End: 46-28-2081udossvocgnRlm Infusion Chair [address] [place] [address] OncologyComment on above:Staphylococcus aureus bacteremia with sepsis ([facility]-HCC) (Primary Dx); MRSA (methicillin resistant Staphylococcus aureus)Start: 03-22-2025 End: 14-81-0879widvhsnybmAYNLTMOCopper Queen Community Hospital HospitalStart: 03-20-2025 End: 60-00-9221Gdpkss WorkMonik Gillis LSWDChristus St. Patrick Hospital OncologyComment on above:Staphylococcus aureus bacteremia with sepsis ([facility]CC) (Primary Dx); MRSA (methicillin resistant Staphylococcus aureus)Start: 03-16-2025 End: 00-55-0804Eoxnrkqcn department patient visitSUSAN [facility] HospitalStart: 03-16-2025 End: 94-64-8442Ubejdapvnb and management of inpatientCopper Springs Hospital HospitalStart: 03-14-2025 End: 41-66-8170twltgvcjyrFnp Infusion Chair 4DAvoyelles Hospital Medical OncologyComment on above:Staphylococcus aureus bacteremia with sepsis ([facility]-HCC) (Primary Dx); MRSA (methicillin resistant Staphylococcus aureus)Start: 03-12-2025 End: 26-01-2657rpugrnnakeCjw Infusion Chair [address] [place] [address] OncologyComment on above:Staphylococcus aureus bacteremia with sepsis ([facility]) (Primary Dx); MRSA (methicillin resistant Staphylococcus aureus)Start: 03-09-2025 End: 66-11-3445Wvlqma Jadyn Grajeda RNDorotLeonard J. Chabert Medical Center OncologyComment on above:Staphylococcus aureus bacteremia with sepsis ([facility]-HCC) (Primary Dx)Start: 03-08-2025 End: 66-98-0288ClviayCedric Causey [facility] Work Phone: dChristus St. [facility] Hospital OncologyComment on above:MRSA (methicillin resistant Staphylococcus aureus) (Primary Dx); Staphylococcus aureus bacteremia with sepsis ([facility]-HCC)Start: 02-18-2025 End: 67-68-8530Jssuzxkvc encounterCherly L VensonProMedica Call CenterComment on above:critical labStart: 02-15-2025 End: 03-91-4203xdodatdvmeANNFZD U GILLProMediTrinity Health System [facility] HospitalStart: 02-14-2025 End: 78-46-2710Cbqpaavtva and management of inpatientVENU GOPALA R BOMMANA [facility]ic[facility] HospitalStart: 02-12-2025 End: 28-34-5470Jwmkgmowdc and management of inpatientVALERIE J CASTILLOProMercy Health [facility] Hospital HospitalStart: 02-12-2025 End: 41-26-2341BoidmaKendall Villar Work Phone: ANGELA ToledoStart: 33-37-9061zycbrovipeXizhol Al Shweiki [facility] Healthtart: 02-03-2025 End: 49-79-3942hjsluuirbyKPTQJBH L LIGIBELProMediJefferson Memorial Hospital HospitalStart: 02-02-2025 End: 84-41-6333pdxmuljbfnIAGLGMF L LIGIBELProMediCentinela Freeman Regional Medical Center, Memorial Campustart: 01-25-2025 End: 91-43-8635Mvtigf outpatient visit 40 minutesCasimiro Muñoz MD Work Phone: Stephany Landaverde [facility] - Medical OncologyComment on above:Malignant neoplasm of upper-outer quadrant of right breast in female, estrogen receptor positive (CMS-HCC) (Primary Dx); Metastasis to bone (CMS-HCC)Start: 01-25-2025 End: 51-50-9940rkqfurpjfvILFEW N XIAProMedica Summit Campustart: 01-22-2025 End: 12-20-2069hunviejvkiCIUNKWX L LIGMercy Memorial Hospitaltart: 01-22-2025 End: 53-76-0899mwuigssesdFJGGJTWCentra Health Start: 01-22-2025 End: 97-36-8462Vucace outpatient visit 15 minutesPam Stinson APRN-CLOTH HAULER Work Phone: [facility] Internal Medicine - Family MedicineComment on above:Insomnia, unspecified type (Primary Dx); Moderate episode of recurrent major depressive disorder ([facility]-HCC); Stage 3b chronic kidney disease ([facility]-HCC)Start: 01-18-2025 End: 37-82-2661Nlquey outpatient new 45 minutesSatheodore Villar Work Phone: [facility] ToledoStart: 01-18-2025 End: 37-97-4385XxavjbIzptmlc J Castillo SALES REPRESENTATIVE [employer]ATS-[employer] Work Phone: [facility] Internal Medicine - Family MedicineComment on above: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 mellitus ([facility]-HCC) Start: 01-15-2025 End: 79-02-8879MjamqxCedric Landaverde [facility] - Medical OncologyComment on above:Malignant neoplasm of upper-outer quadrant of right breast in female, estrogen receptor positive (CMS-HCC) (Primary Dx)Start: 01-11-2025 End: 13-74-5052Odwddoqwf department patient visitEncompass Health Rehabilitation Hospital of Readingtart: 01-10-2025 End: 15-14-2676Lgfnddkva department patient visitNING [place] JONATHANSelect Medical Specialty Hospital - Cincinnatitart: 01-03-2025 End: 16-91-6179Kuztpfcmu department patient visitPAM [place] [facility] Hospitaltart: 40-38-2188lvnnnkijobIndcaex R PetersenCincinnati Eye InstituteStart: 12-04-2024 End: 49-66-6715puipixnlsqRGDYN [facility] Centertart: 11-28-2024 End: 29-34-6926Acowfj outpatient visit [address] JENKINS-CLOTH HAULER Work Phone: [facility] - Family MedicineComment on above:Mixed diabetic hyperlipidemia associated with type 2 diabetes mellitus ([facility]-HCC) (Primary Dx); Insomnia, unspecified type; Elevated troponin level; Recurrent UTIStart: 11-28-2024 End: 01-01-0855kyurctvdbsWYWLZEGInland Northwest Behavioral Health [facility]ulatory PPG Start: 11-24-2024 End: 47-71-6164Yywpka outpatient visit 25 minutesRadha Moran MD Work Phone: [facility] CardiologyComment on above: Nonrheumatic aortic valve stenosis (Primary Dx); S/p TAVR (transcatheter aortic valve replacement), bioprosthetic; 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Start: 11-24-2024 End: 63-29-5845epldjjjnebFUSHDZ D [facility] Centertart: 11-23-2024 End: 64-79-6883Itvakywlx encounterJazzmine Vega CMAProMedica Physicians CardiologyStart: 11-19-2024 End: 38-78-0059Jkvjyksdd department patient visitPAM [place] [facility] Hospitaltart: 11-17-2024 End: 66-06-0612Zuahtckxd department patient visitPAM [place] [facility] Hospitaltart: 11-13-2024 End: 89-56-3145Fhvklkavw encounterIrina Brunner MD Work Phone: [facility] CardiologyComment on above: Hospital Follow-upStart: 11-10-2024 End: 54-32-2919Vwwxtoycj encounterMaddie Givens RN Work Phone: [facility] Internal [facility] MedicineStart: 11-09-2024 End: 95-68-2128lwmoctpsfoLLOHMGV J [facility] Hospitaltart: 10-27-2024 End: 92-84-8226Ahgfsnmvsy and management of inpatientVALERIKyara De La Rosa [facility]: 10-25-2024 End: 76-25-3130SkflebCedric Rosales DO Work Phone: [facility] 10-11-2024 End: 47-05-3569Apbcfannn department patient visitJFK JOHNSON REHABILITATION INSTITUTEKyara De La Rosa [facility]: 10-09-2024 End: 60-20-4861Nxzsdtequ department patient visitVALERIKyara De La Rosa [facility]: 09-15-2024 End: 65-02-9837zrbalgydikITDVCFWexner Medical Centertart: 09-06-2024 End: 53-65-3303Gkkippbca encounterMisty Prince RHIANNAProMedica Physicians Internal [facility] MedicineStart: 08-29-2024 End: 68-77-3776KqokcbXldmPoncho Gray APRN-[employer] Work Phone: [facility] Internal MedicineStart: 08-28-2024 End: 05-18-7811cfzybzldhhRYVLCLQ [facility] Start: 08-28-2024 End: 13-41-2389Fglnfvfuahnb care manage srvc 7 day dischargePam Estrella McneilStinson SALES REPRESENTATIVE [employer] Work Phone: [facility] Internal Medicine [facility] MedicineComment on above:Hypoglycemia (Primary Dx); Need for influenza vaccination; Altered mental status, unspecified altered mental status typeStart: 08-24-2024 End: 40-72-6478YncersPwfn D Krotzer SALES REPRESENTATIVE [employer] Work Phone: [facility] Internal MedicineStart: 08-16-2024 End: 97-20-9151Mrmdfoede encounterKokb Alonzo Physicians Internal Medicine - Family MedicineComment on above:Transition Of CareStart: 07-12-2024 End: 08-90-8167MvxkuaXvzr D Krotzer SALES REPRESENTATIVE [employer]ATS[employer] Work Phone: [facility] Internal MedicineStart: 06-21-2024 End: 52-11-0981Ozzfyjfwyxpl care manage srvc 7 day dischargePam Stinson SALES REPRESENTATIVE [employer] Work Phone: [facility] Internal Medicine - Family MedicineComment on above:Hypoglycemia (Primary Dx); Mild intermittent reactive airway disease with acute exacerbationStart: 06-21-2024 End: 46-87-3256xqejlowoovOLXKWMSMethodist [facility] Start: 06-02-2024 End: 16-44-7385EmkfxgArkftav J Castillo SALES REPRESENTATIVE [employer] Work Phone: [facility] Internal Medicine - Family MedicineComment on above:Essential hypertension; Major depressive disorder in partial remission, unspecified whether recurrent ([facility]-HCC)Start: 05-11-2024 End: 11-52-2484QaebvbDuskxmg J Castillo SALES REPRESENTATIVE [employer] Work Phone: [facility] Internal Medicine - Family MedicineComment on above:Major depressive disorder in partial remission, unspecified whether recurrent ([facility]-H[facility])Start: 05-03-2024 End: 15-65-4676Wqfeiuaxgvpy care manage srvc 7 day dischargePam Stinson SALES REPRESENTATIVE [employer] Work Phone: [facility] Physicians Internal Medicine - Family MedicineComment on above:Pneumonia due to other specified organism (Primary Dx) Start: 03-09-2024 End: 84-88-4978Cjwjkj outpatient visit 25 minutesChaflora Muñoz MD Work Phone: Stephany Carnes [facility] - Medical OncologyComment on above:Malignant neoplasm of upper-outer quadrant of right breast in female, estrogen receptor positive (CMS-HCC) (Primary Dx); Metastasis to bone (CMS-HCC)Start: 03-09-2024 End: 04-20-2416SqldpqCedric Strong RNDovenkatmarbella Carnes [facility] - Medical OncologyComment on above:Malignant neoplasm of upper-outer quadrant of right female breast, unspecified estrogen receptor status (CMS-HCC) (Primary Dx); Malignant neoplasm of upper-outer quadrant of right breast in female, estrogen receptor positive (CMS-HCC)Start: 02-28-2024 End: 32-79-2621Fmholzbmy encounterPaige [facility] Start: 02-09-2024 End: 03-27-0005Hubynw outpatient visit 25 minutesPam Stinson APRNzuuka! Work Phone: [facility] - Family MedicineComment on above:Acute cystitis without hematuria (Primary Dx); Urge incontinence of urineStart: 02-67-6493PvornnMctmw N Xia MD Work Phone: Stephany Trice [facility] - Medical OncologyComment on above:Malignant neoplasm of upper-outer quadrant of right female breast, unspecified estrogen receptor status (CMS-HCC)Start: 12-15-2023 End: 30-29-4991Nuofwf outpatient visit 25 minutesPam Stinson APRNzuuka! Work Phone: [facility] - [...] chronic kidney disease and hypertension ([facility]-H[facility])Start: 06-54-6980QeccfkKlygruo J Castillo SALES REPRESENTATIVE [employer] Work Phone: [facility] Medicine - Family MedicineComment on above:Insomnia, unspecified typeStart: 11-25-2023 End: 44-11-5241Ulhlcm outpatient visit 25 minutesChaflora Muñoz MD Work Phone: [facility] - Medical OncologyComment on above:Malignant neoplasm of upper-outer quadrant of right female breast, unspecified estrogen receptor status ([facility]-H[facility]) (Primary Dx); Malignant neoplasm of upper-outer quadrant of right breast in female, estrogen receptor positive (CMS-HCC)Start: 66-78-7882Sqiqgd Brooklyn Strong RNDoLeonard J. Ch[facility]ert Medical [facility] - Medical OncologyComment on above:Malignant neoplasm of upper-outer quadrant of right female breast, unspecified estrogen receptor sta tus ([facility]-HCC) (Primary Dx); Malignant neoplasm of upper-outer quadrant of right breast in female, estrogen receptor positive ([facility]-HCC)Start: 01-13-2023 End: 69-42-9635laorxspiymRYERQNBH R BORKOSKgalinaPublic Health Service Hospital Start: 01-13-2023 End: 87-01-1690Eeibexgvtd hospital visit by Seble Doe MD Work Phone: [phone] [phone] ObservationComment on above:ArrivedSevere aortic valve stenosis (Primary Dx); Type 2 diabetes mellitus with diabetic neuropathy, with long-term current use of insulin ([facility]); Tremors of nervous system; Family history of coronary arteriosclerosis; CHELSEA (obstructive sleep apnea) nonadherent with cpap; Stage 3a chronic kidney disease (HCC); 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Aortic valve stenosis, etiology of cardiac valve disease unspecifiedStart: 12-07-2022 End: 95-23-7605jdqmflrimeOUOLW KAWilson [address] Hospitaltart: 12-07-2022 End: 07-85-7171Zoydalperf hospital visit by Seble Doe MD Work Phone: [phone] [phone] StepdownComment on above:Severe aortic valve stenosis (Primary Dx)Start: 11-24-2022 End: 51-45-3441hqcbnhfnpeVJWU [facility]: 11-24-2022 End: 18-74-0273Tlirfohvru hospital visit by physicianStmino Automation Engineering Manager BSTVZ Cath LabComment on above:Canceled (Case cancelled)Start: 09-28-2022 End: 44-13-2368Waavseqlvk and management of inpatientMICHAEL Davis [facility]art: 03-31-2022 End: 36-26-9903xiohbkbbskGxkxnkl OvittFacility:UTMCStart: 03-26-2021 End: 21-88-3051hynxwxfvejNRPYS JAMES [facility]: 03-24-2021 End: 46-17-2897jlohncnubgFXEQPM [facility] Townshiptart: 03-24-2021 End: 82-13-8362Smttjwbxlw hospital visit by Jake DuarteMTHZ Laboratory Start: 03-19-2021 End: 88-44-7616pzmcuieaayTRPPXRU CASTILLOFacility:L9Wvmeo: 05-24-2013 End: 43-53-7816Vssgso T Nelsen Jr Work Phone: rvA [place]ontStart: 04-26-2013 End: 06-66-2646NhcqczGordy Momin Jr Work Phone: [facility] [place]ontStart: 03-29-2013 End: 58-85-4045QdzpvuGordy Momin Jr Work Phone: [facility] [place]ontStart: 02-01-2013 End: 76-24-7956UnbewmGordy Momin Jr Work Phone: [facility] [place]ontStart: 12-21-2012 End: 64-32-9663YwshopGordy Momin Jr Work Phone: [facility] [place]ontStart: 11-02-2012 End: 83-99-3746Jqtjqm outpatient visit 15 minutesPhijose ramon Momin Jr Work Phone: [facility] [place]ontStart: 10-05-2012 End: 99-74-0151Qjpona outpatient visit 15 minutesGordy Momin Jr Work Phone: [facility] [place]ontStart: 08-31-2012 End: 76-23-1349Skrkar outpatient visit 15 minutesPhijose ramon Momin Jr Work Phone: [facility] [place]ontStart: 08-25-2012 End: 59-72-2742Cbrlhh T Nelsen Jr Work Phone: [facility] [place] Procedures DateProcedureProcedure DetailPerforming ClinicianStart: 19-37-5137Suzfnpqe screenVENU BOMMANAComment on above:Performed By: #### TSC ####[facility] ([facility])[address] [place] [address] VIRStart: 85-87-5319Ohbltugd screenVENU BOMMANAComment on above:Performed By: #### TSC ####[facility] ([facility])[address] [place] [address] VIRStart: 52-49-9693Buxhxwdi screenVENU BOMMANAComment on above:Performed By: #### TSC ####[facility] ([facility])[address] [place] [address] VIRStart: 20-38-4278Pytow depression screening assessmentDennis Lancing DO Work Phone: Start: 22-09-8027Zelkb hip unilateral with pelvis 2-3 viewsJoie FRIEND Work Phone: Start: 17-66-1617QVYRCWK GLUCOSEFelix Hallman MD Work Phone: Start: 74-69-6738KJUFJXU Angy Hallman MD Work Phone: Start: 68-13-2626KTTFUUB Angy Hallman MD Work Phone: Start: 68-79-5170Nzlfcpuumgwnx metabolic panelFelix Hallman MD Work Phone: Start: 78-06-3081BVTXOHX Angy Hallman MD Work Phone: Start: 04-22-3650WIPXUQX Angy Hallman MD Work Phone: Start: 09-77-1681WIEZYJH Angy Hallman MD Work Phone: Start: 01-32-5938HHSPZCP Angy Hallman MD Work Phone: Start: 76-70-5053Orttweolyagni metabolic panelFelix Hallman MD Work Phone: Start: 87-09-6197WHEQZFX Angy Hallman MD Work Phone: Start: 56-30-8688YCJEZBD Angy Hallman MD Work Phone: Start: 59-34-7011Qgzgvbbjnz exam abdomen 1 viewRachel Ragle SALES REPRESENTATIVE [employer] Work Phone: Start: 88-40-2694ZEYDUNL Angy Hallman MD Work Phone: Start: 06-90-7106TYMYSNC Angy Hallman MD Work Phone: Start: 62-34-8698Difljgerwkngu metabolic panelFelix Hallman MD Work Phone: Start: 46-64-3624YAZDTHL Angy Hallman MD Work Phone: Start: 53-35-2349Cyzcu of phosphorus inorganicFelix Hallman MD Work Phone: Start: 09-81-9538YAFLW OXIMETRY, SPOTFelix Hallman MD Work Phone: Start: 53-00-3593Hfgildsolz examination pelvis 1/2 Mariana FRIEND Work Phone: Start: 77-20-9818Yehfz depression screening assessment Vj Cobosinder SALES REPRESENTATIVE MEATS-[facility] Work Phone: Start: 08-38-6960BYIZDII Angy Hallman MD Work Phone: Start: 92-40-3768Alxpufmyvfkfi metabolic panelTaeler [facility] Work Phone: Start: 72-39-2774IHPVQ TUBESRuqinena Hallman MD Work Phone: Start: 67-61-8483MODTI TUBES SST TOPRujazmin Hallman MD Work Phone: Start: 59-78-5967IASMRWZ Angy Hallman MD Work Phone: Start: 92-45-1765Hvscd of magnesiumKyhope Gray SALES REPRESENTATIVE MEATS-[facility] Work Phone: Start: 36-56-7108AWSZBDD Angy Hallman MD Work Phone: Start: 44-06-1395Cu head/brain w/o contrast material Vj Gray SALES REPRESENTATIVE MEATS-[facility] Work Phone: Start: 57-96-2752XOZNZKK Angy Hallman MD Work Phone: Start: 05-14-2025 End: 49-57-1647Pstscsegmtxll metabolic panelTaeler Aidan SALES REPRESENTATIVE MEATS-[facility] Work Phone: Start: 25-93-9951SJNHUIZ GLUCOSEThania Martinez MD Work Phone: Start: 97-44-2684Zgggp count hemoglobinTaeler Aidan SALES REPRESENTATIVE MEATS-[facility] Work Phone: Start: 98-67-6503HOIYA TUBESThania Martinez MD Work Phone: Start: 79-75-5506UIPEK TUBES PST TOPJadavionutradha Martinez MD Work Phone: Start: 57-11-7219YSKLWCO GLUCOSEJesse A Park DO Work Phone: [phone]: 11-39-4450Wa lower extremity w/o contrast materialRachel D Charlesfilipe SALES REPRESENTATIVE [employer] Work Phone: start: 99-47-2943Psgwx of troponin quantitativeRachel D Charlesfilipe SALES REPRESENTATIVE [employer] Work Phone: start: 79-34-4640AN ED CRITICAL CARERachel D Karfilipe SALES REPRESENTATIVE MEATS-[facility] Work Phone: start: 67-52-8398Ggwlq gases any combination ph pco2 po2 co2 ivj7Qojwt A [employer] Work Phone: [phone]: 53-04-5499WWBCR TUBESJesse A A [facility] DO Work Phone: [phone]: 48-74-3651TCKMS TUBES BLUE TOPJesse A A [facility] DO Work Phone: Start: 05-13-2025 End: 68-55-4031Mrqonvb bacterial blood aerobic w/id isolatesRachel D Charlesfilipe SALES REPRESENTATIVE MEATS-[facility] Work Phone: start: 80-82-0590C-reactive proteinRachel D Charlesfilipe SALES REPRESENTATIVE [employer] Work Phone: start: 05-13-2025 End: 50-30-3740Oqhgnmktytrjs metabolic panelRachel D Charlesfilipe SALES REPRESENTATIVE [employer] Work Phone: start: 82-56-3806Mzqhvcsmre exam chest single view Jazmine D Charlesrenafilipe SALES REPRESENTATIVE MEATS-[facility] Work Phone: start: 81-27-2727Pxx routine ecg w/least 12 lds trcg only w/o i&rRachel D Charlesrenafilipe SALES REPRESENTATIVE [employer] Work Phone: start: 35-00-5772Ulfaz depression screening assessment Pam Stinson APRN-[employer] Work Phone: Start: 58-54-7844Qgdwc metabolic panel calcium total Delgado Leahy MD Work Phone: Start: 01-18-2025 End: 66-68-5351Wnzeghppruu injectionSameer Al [facility] MDStart: 01-18-2025 End: 33-47-9737Utroukjngqhi ophthalmic imaging retinaSameer Al [facility] MDStart: 26-85-4452Njrdmh Photos No ChargeMichael PetersenStart: 01-18-2025 End: 81-23-9481Mkujzr Photos No Charge BilateralSameer Al [facility] MDStart: 01-18-2025 End: 54-99-2830Xtjoqkjcgyyb njx pharmacologic agt spxSameer Al [facility] MDStart: 45-78-6520Dcdql depression screening assessmentTresakyara Stinson [facility] Work Phone: Start: 79-81-9955Gdiboy-up visitFollow-upROBERT D GRANDEStart: 29-41-7562Ewacj depression screening assessmentMaddie Givens RN Work Phone: Start: 85-06-8707Aobor depression screening assessment Pam Stinson [facility] Work Phone: Start: 00-67-9888Nproph-up visitFollow-upPAM STINSONStart: 20-80-5122Hcbvo depression screening assessmentInated Stinson [facility] Work Phone: Start: 85-61-2150Khtbu depression screening assessment Pam Stinson [facility] Work Phone: Start: 01-74-4830Aefmq depression screening assessment Rosario Strong RNStart: 04-99-4469Ioypo dip stick/tablet rgnt non-auto w/o micrscp Pam Estrella Av [facility] Work Phone: Start: 14-13-8541Qfjny depression screening assessment Pam Stinson SALES REPRESENTATIVE [employer] Work Phone: Start: 74-32-2190Mqjdu depression screening assessment Pam Stinson SALES REPRESENTATIVE [employer]ATSSTATE [employer] Work Phone: Start: 53-54-7563Haczo depression screening assessment Rosario Strong RNStart: 07-98-4465Rtsaodzzn rspse spmtry pre&post-brncdilat admn 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 [facility] Work Phone: Start: 50-52-8461La angiography chest w/contrast/noncontrastMarianne Jeff Blair SALES REPRESENTATIVE MEATS - [facility] Work Phone: Start: 86-87-8038Btwdakn blood reagent stripGeorges Doe MD Work Phone: Start: 22-34-4881Cvxroxh blood reagent Walter Doe MD Work Phone: Start: 19-15-0164Fdngepz blood reagent stripGeorges Doe MD Work Phone: Start: 46-46-7920Fpclerz blood reagent stripGeorges Doe MD Work Phone: Start: 28-26-9551Ujgsx metabolic panel calcium total Rita Leos [facility] Work Phone: Start: 72-79-8496Owbphjsq screenGeorges Doe MD Work Phone: Start: 12-10-2022 End: 18-42-4714Wvajvou blood reagent stripGeorges Doe MD Work Phone: Start: 12-09-2022 End: 09-69-8108Ajvhk count hemoglobinGeorges Doe MD Work Phone: Start: 01-01-0860Oncvbwo blood reagent stripGeorges Doe MD Work Phone: Start: 12-09-2022 End: 36-15-9835Nyqnqprjuts of packed red blood cellsRadha Moya [facility] Work Phone: start: 05-18-7820Wvfbdgh blood reagent stripGeorges Doe MD Work Phone: Start: 93-19-2606VUAWL METABOLIC PANEL W/ REFLEX TO MG FOR LOW KKritioscar SparksDavin MDStart: 12-09-2022 End: 29-68-0496Ildbd count hemoglobinKrlorraine Sparksthra MDStart: 45-77-8147Cjqajui blood reagent stripGeorges Doe MD Work Phone: Start: 42-59-0051Zkdvq count hemoglobinHemfariba Trejo MD Work Phone: Start: 09-09-8161Zchzbjz blood reagent Walter Doe MD Work Phone: Start: 81-23-5588Kwjaw count Kalpesh Doe MD Work Phone: Start: 21-31-6811SFVHX METABOLIC PANEL W/ REFLEX TO MG FOR LOW Arabella Velasquez MD Work Phone: Start: 31-17-8341JBBIIRWL REJECTIONMoreinier Velasquez MD Work Phone: Start: 12-08-2022 End: 63-49-3119Xiauc count Kalpesh Doe MD Work Phone: Start: 12-08-2022 End: 72-32-5602Ryzugltvmdw of packed red blood cellsLexx Franklin MD Work Phone: Start: 19-31-3716Bjfxq count hemoglobinMuniko Franklin MD Work Phone: Start: 04-15-6368Xbcbq metabolic panel calcium total Nadira Davin MDStart: 12-07-2022 End: 53-32-4362Iqthn count Kalpesh Doe MD Work Phone: Start: 05-73-0575Svrnhlk blood reagent Walter Doe MD Work Phone: Start: 12-07-2022 End: 53-48-7422Pcxeanimlif of packed red blood cellsGeorges Doe MD Work Phone: Start: 99-64-8641Trr-scan lxtr art/artl bpgs uni/lmtd Jaiden Martinez MD Work Phone: Start: 12-07-2022 End: 37-95-2465Nljeh count hemoglobinGeorges Doe MD Work Phone: Start: 22-08-0078Aiijs typing serologic aboGeorges Doe MD Work Phone: Start: 13-65-9824Cazifvguxux time activatedGeorges Doe MD Work Phone: Start: 09-93-2045Fvditkc catheterizationKritika Davin MDStart: 64-93-8704Joyzrqnb [Moles/volume] in Serum or PlasmaGeorges Doe MD Work Phone: Start: 56-58-4767LPRGZJEJOP W/GFR POINT OF CAREGeorges Doe MD Work Phone: Start: 38-82-6790Joxs bld gluc mntr dev cleared fda spec home useGeorges Doe MD Work Phone: Start: 12-23-1708Jtcgccjpq [Moles/volume] in Serum or PlasmaGeorges Doe MD Work Phone: Start: 65-26-3072Daduho [Moles/volume] in Serum or PlasmaGeorges Doe MD Work Phone: Start: 48-08-3566Odjotcnc [Moles/volume] in Serum or PlasmaSyed Omar Jha MD Work Phone: Start: 71-44-4039PGNTUPASNN W/GFR POINT OF CARESyded Omar Jha MD Work Phone: Start: 11-24-2022 End: 55-79-4652Heya bld gluc mntr dev cleared fda spec home useSyed Omar Jha MD Work Phone: Start: 89-05-4384Vroyyuflk [Moles/volume] in Serum or PlasmaSyed Omar Jha MD Work Phone: Start: 10-26-2419Ziawwf [Moles/volume] in Serum or PlasmaSyed Omar Jha MD Work Phone: Start: 63-44-3717Quktf of blood/uric acidSri Jarrett SALES REPRESENTATIVE [employer] Work Phone: Start: 05-24-2013 End: 86-85-2468Loxkqfwp Dilated ExamSameer Al Bessie MDStart: 05-24-2013 End: 36-53-0542Nsrfw medical xm&eval intermediate estab ptSameer Bhavik La MD Start: 04-26-2013 End: 95-71-9107Niilzypv Dilated ExamSameer Al Bessie MDStart: 04-26-2013 End: 23-68-9564Ujzzinjarjln njx pharmacologic agt spxSgeorges Villar MDStart: 04-26-2013 End: 94-69-3138Hiyif medical xm&eval intermediate estab ptSameer Bhavik La MD Start: 04-26-2013 End: 58-17-3568Svoidqckaem injectionSameer Al Bessie MDStart: 03-29-2013 End: 55-51-5641Djejvbao Dilated ExamSameer Al Bessie MDStart: 03-29-2013 End: 73-99-1518Wthhkcjeliec njx pharmacologic agt spxSgeorges Villar MDStart: 03-29-2013 End: 47-75-5176Emepq medical xm&eval comprhnsv estab pt 1/>Kendall Villar MD Start: 03-29-2013 End: 26-38-3826Kmunjgywoks injectionSameer Al Bessie MDStart: 02-01-2013 End: 76-68-7690Hkhqobqncdtt njx pharmacologic agt spxSameweston Villar MDStart: 02-01-2013 End: 20-52-6851Tizpf medical xm&eval intermediate estab ptSameweston Villar MD Start: 02-01-2013 End: 47-35-6762Xpzscqzxuxt injectionSameer Al Bessie MDStart: 12-21-2012 End: 99-12-1424Rjsihlewmlez njx pharmacologic agt spxSameer Al Bessie MDStart: 12-21-2012 End: 99-11-9742Idamu medical xm&eval comprhnsv estab pt 1/>Kendall Villar MD Start: 12-21-2012 End: 12-27-9284Sdwuagidhir injectionSameer Al Bessie MDStart: 11-02-2012 End: 46-82-0863Dhypbwywbehi ophthalmic imaging retinaSameer Al Beverleytai MDStart: 11-02-2012 End: 12-99-9990Sahqayvcefgl njx pharmacologic agt spxSameer Al Bessie MDStart: 11-02-2012 End: 52-08-7513Igeajmpirjo injectionSameer Al Bessie MDStart: 10-05-2012 End: 32-13-8054Kwsrrpdsjouf ophthalmic imaging retinaSameer Al Beverleytai MDStart: 10-05-2012 End: 34-83-2957Yjsapekavhim njx pharmacologic agt spxSameer Al Beverleytai MDStart: 10-05-2012 End: 69-49-3970Arjglwatarj injectionSameer Al Beverleytai MDStart: 08-31-2012 End: 46-04-9177Tajggonrbvvp ophthalmic imaging retinaSameer Al deondre MDStart: 08-31-2012 End: 75-75-8499Xcoctpuplujg njx pharmacologic agt spxSameer Al Bessie MDStart: 08-31-2012 End: 65-60-7449Jqasfpxsmwp injectionSameer Bhavik La MD Plan of Treatment DateCare ActivityDetailAuthorStart: 51-83-3211Pbwmgbg ScreeningTobacco Screening [facility]: 77-16-0861Vnqabkz ScreeningTobacco Screening [facility] SystemStart: 77-86-4066Ogbysnv ScreeningTobacco Screening [facility]: 92-86-5491Iwatvuk ScreeningTobacco Screening [facility]: 18-26-4124Gkmostblqp ScreeningDepression Screening [facility]: 54-05-6695Fsajllv ScreeningTobacco Screening [facility] SystemStart: 56-13-5354Yndzbhneky ScreeningDepression Screening [facility]: 92-88-2440Ioib Risk ScreeningFall Risk Screening [facility]: 50-77-4005Txzwghu ScreeningTobacco Screening [facility]: 26-37-8603Wptndfzzet ScreeningDepression Screening [facility]: 51-54-4309Wumb Risk ScreeningFall Risk Screening [facility] SystemStart: 39-34-4942Oipnqzv ScreeningTobacco Screening [facility] SystemStart: 18-73-5579Hxqpifr ScreeningTobacco Screening [facility]: 04-80-6212Oaxdnca ScreeningTobacco Screening [facility]art: 35-96-3572Zodqzip ScreeningTobacco Screening [facility]: 84-88-0006Wfpcfpn ScreeningTobacco Screening [facility]: 07-75-2985Aqct Risk ScreeningFall Risk Screening [facility]: 87-86-7459Ascnfzm ScreeningTobacco Screening [facility]tart: 82-93-0240Wzlafzq ScreeningTobacco Screening [facility]tart: 81-58-2095Wfozfwr ScreeningTobacco Screening [facility]tart: 24-43-5125Riakv screening for proteinDiabetes: Urine Protein ScreeningMercy Hospital St. John'sStart: 16-89-9384Zrbwqcp ScreeningTobacco ScreeningW[facility] SystemStart: 43-71-1492Dpftdeu ScreeningTobacco ScreeningW[facility] SystemStart: 16-64-3624Fxviqtk ScreeningTobacco ScreeningW[facility] SystemStart: 46-46-1548Hablgnkqip ScreeningDepression ScreeningW[facility] SystemStart: 86-54-1758Xjrv Risk ScreeningFall Risk ScreeningW[facility] SystemStart: 05-36-8083Nyvqcbf ScreeningTobacco ScreeningW[facility] SystemStart: 02-18-9395Piyvdom ScreeningTobacco ScreeningW[facility] SystemStart: 78-35-4263Ufybtlf ScreeningTobacco ScreeningSumma Health Ak[facility] Campusca [facility] SystemStart: 52-97-7594Elitnpcglb ScreeningDepression ScreeningProOur Lady Of Mercy Hospitalca [facility] SystemStart: 61-83-6871Apciiaf ScreeningTobacco ScreeningProOur Lady Of Mercy Hospitalca [facility] SystemStart: 10-03-2025 End: 33-80-7344Uwgmrov encounter thbdcsywy72/19/2025 1:45 PM EST Office Visit [facility] [address] [place] [address] Ra Marinelli MD [address] [place] [address] [facility] Adult ReconstructionStart: 10-03-2025 End: 86-34-8858Hmizguk encounter zhjheagmd49/19/2025 9:45 AM EST Office Visit [facility] [address] [place] [id number] Ra Marinelli MD [address] [place] [address] [facility] Adult ReconstructionStart: 09-17-2025 End: 50-94-5108Cssvlaa encounter crlfqrohc98/03/2025 2:15 PM EST [facility] Cardiology [address] [address] Tawny Engel MD [address] [place] [address] Irina Brunner MD [address] [place] [address] [facility] CardiologyStart: 09-14-2025 End: 50-38-4067Nqjvupm encounter jomenkmqy47/31/2025 10:15 AM EDT Office Visit Stephany Landaverde [facility] - Medical Oncology [address] [place] [address] Casimiro Muñoz MD [address] [place] [address] Stephany Landaverde [facility] - Medical OncologyStart: 09-05-2025 End: 61-63-9240Iotvexk encounter /22/2025 1:00 PM EDT Office Visit [facility] Internal Medicine - Family Medicine [address] [place] [phone] Vj Gray, SALES REPRESENTATIVE [employer] [address] , [facility] [address] [place] [address] [facility]: 09-03-2025 End: 51-38-6872Pweaczy encounter jytekzbvx12/20/2025 8:00 AM EDT Office Visit [facility] Cardiology [address] [phone] Tawny Engel MD [address] [place] [address] Whitney Miles, PA-C [address] [place] [address] [facility] CardiologyStart: 08-31-2025 End: 44-77-0230Ngggbna encounter /17/2025 11:00 AM EDT Appointment [facility] - [facility] [address] [place] [address] [phone] Stephany [facility]ver[facility] - Pet Imaging Start: 66-09-7235Dbwmm BMI ScreeningAdult BMI ScreeningWright-[facility] Start: 31-98-9153Paeroiidqi ScreeningDepression ScreeningWright-Patterson [facility] Center System Start: 28-80-8320Uuft Risk ScreeningFall Risk ScreeningWright-Pat[facility] Start: 71-21-8632Bjypdmq ScreeningTobacco ScreeningWright-Patterson Medical Center SystemStart: 03-15-4432Flgcw BMI ScreeningAdult BMI ScreeningWright-Patterson Medical Center SystemStart: 11-75-8801Mudojpo ScreeningTobacco ScreeningWright-Patterson Medical Center SystemStart: 08-22-2025 End: 27-67-1213MK Femur - left 2 ViewsX-ray femur left 2+ views Imaging Routine Lesion of left femur Expected: 08/22/2025, Expires: 08/22/2026[facility] SystemComment on above:Expected: 08/22/2025, Expires: 08/22/2026Start: 08-22-2025 End: 14-89-5690BX Femur - right 2 ViewsX-ray femur right 2+ views Imaging Routine 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 Expected: 08/22/2025, Expires: 08/22/2026[facility] Work Phone: Comment on above:Expected: 08/22/2025, Expires: 08/22/2026Start: 08-22-2025 End: 27-11-6404Gqbrrbq encounter fvipjcvqa63/08/2025 9:45 AM EDT Office Visit [facility] Orthopedics/Trauma and Adult Reconstruction [address] [place] [address] Ra Marinelli MD [address] [place] [address] [facility] Orthopedics/Trauma and Adult ReconstructionStart: 08-20-2025 End: 74-18-2275Rzlsafy encounter geczewfho90/06/2025 1:00 PM EDT Office Visit [facility] Cardiology [address] [place] [address] Tawny Engel MD [address] [place], [place] [phone] [facility] CardiologyStart: 08-14-2025 End: 08-32-6761BL Femur - right 2 ViewsX-ray femur right 2+ views Imaging Routine 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, subsequent encounter Expected: 08/14/2025, Expires: 08/14/2026 Shauna Work Phone: Comment on above:Expected: 08/14/2025, Expires: 08/14/2026Start: 07-68-9959Xezfu BMI ScreeningAdult BMI ScreeningWright-Patterson Medical Center SystemStart: 72-36-8923Kgzteje ScreeningTobacco ScreeningProUniversity Hospitals Geauga Medical Centertart: 08-06-2025 End: 10-82-6290Gdfwixfpo to same day surgery zcslif7508/06/2025 7:30 AM EDT - 08/06/2025 9:45 AM EDT Surgery [address] [place] [address] Ra Marinelli MD [address] [place] [address] INSERTION INTRAMEDULLARY NAIL FEMUR [07921 (CPT )][facility] Comment on above:INSERTION INTRAMEDULLARY NAIL FEMUR [69358 (CPT )]Start: 08-06-2025 End: 89-12-2474Rdxfc tx n/p/pltwr w/wo methylmethacrylate femurINSERTION INTRAMEDULLARY NAIL FEMUR Lesion of left femur 08/06/2025 7:30 AM EDTTOLEDO SURGERYStart: 12-72-2303Oedbfhcmoc hospital visit by wsxnzbexn53/22/2025 7:30 AM EDT Hospital Encounter [address] [place] [address] Ra Marinelli MD [address] [place] [address] [facility] Surgery Start: 08-01-2025 End: 67-84-0588Dehlajh encounter /17/2025 1:15 PM EDT Office Visit [facility] Orthopedics/Trauma and Adult Reconstruction [address] [place] [address] Ra Marinelli MD [address] [place] [address] [facility] Orthopedics/Trauma and Adult ReconstructionStart: 07-30-2025 End: 29-76-8667Wcritdo encounter jmubzxpje40/15/2025 9:15 AM EDT Office Visit [facility] Orthopedics/Trauma and Adult Reconstruction [address] [place] [address] Ra Marinelli MD [address] [place] [address] [facility] Orthopedics/Trauma and Adult ReconstructionStart: 46-80-5420Zztikcxah vaccinationWright-Patterson Medical Center SystemStart: 07-12-2025 End: 58-23-8525Vbxkw metabolic 2000 panel - Serum or PlasmaBasic Metabolic Panel Lab Routine Intractable nausea and vomiting Type 2 diabetes mellitus without c omplication, without long-term current use of insulin ([facility]) Generalized weakness Expected: 07/12/2025 (Approximate), Expires: 07/05/2026[facility] Work Phone: Comment on above:Expected: 07/12/2025 (Approximate), Expires: 07/05/2026Start: 07-12-2025 End: 79-78-8073JWX W Auto Differential panel - BloodCBC auto differential Lab Routine Iron deficiency anemia due to chronic blood loss Expected: 07/12/2025 (Approximate), Expires: 07/05/2026[facility] SystemComment on above: Expected: 07/12/2025 (Approximate), Expires: 07/05/2026Start: 07-12-2025 End: 94-99-7347Lmfppsxsa [Mass/volume] in Serum or PlasmaMagnesium Lab Routine Hypomagnesemia Expected: 07/12/2025 (Approximate), Expires: 07/05/2026[facility] SystemComment on above:Expected: 07/12/2025 (Approximate), Expires: 07/05/2026Start: 07-10-2025 End: 09-12-8498Vybpoxw encounter procedureNOMS FB ORTHOPAEDICSStart: 06-28-2025 Tobacco ScreeningTobacco ScreeningWright-Patterson Medical Center SystemStart: 06-26-2025 Bacteria identified in Urine by CultureUrine CultureRegency Hospital Cleveland Westtart: 46-79-5023Kjqkx cultureRegency Hospital Cleveland Westtart: 67-05-2048Hlqeo BMI ScreeningAdult BMI ScreeningWright-Patterson Medical Center SystemStart: 59-46-0182Eakfpub ScreeningTobacco ScreeningProMercy Health [facility]field [facility] SystemStart: 39-17-0606Yitydogoly ScreeningDepression ScreeningProMercy Health Fairfield Hospital SystemStart: 04-28-7688Akcg Risk ScreeningFall Risk ScreeningAsheville Specialty Hospitaltart: 06-06-2025 End: 51-85-0949Xnwqvyd encounter upqkfglza30/23/2025 1:30 PM EDT Office Visit [facility] [address] [place] [address] Joie Echavarria PA [address] [place] [address] Acute right hip pain (Primary Dx)[facility] FB ORTHOPAEDICSComment on above:Acute right hip pain (Primary Dx)Start: 05-22-2025 End: 26-06-1323Cvwhm metabolic 2000 panel - Serum or PlasmaBasic Metabolic Panel Lab Routine Type 2 diabetes mellitus with hypoglycemia without coma, with long- term current use of insulin ([facility]) Expected: 05/22/2025 (Approximate), Expires: 05/15/2026[facility] Work Phone: Comment on above:Expected: 05/22/2025 (Approximate), Expires: 05/15/2026Start: 05-03-2025 End: 87-54-3440Xawllvj encounter /19/2025 2:15 PM EDT Office Visit [facility] - Medical Oncology [address] [place] [phone] Casimiro Muñoz MD [address] [place] [address] [address] [place] [address] Stephany Trice Landaverde [facility] - Medical OncologyStart: 50-82-6314Jvwbr BMI ScreeningAdult BMI ScreeningProMercy Health Fairfield Hospital SystemStart: 86-08-7400Uhwupoaoek ScreeningDepression ScreeningProMercy Health Fairfield Hospital SystemStart: 74-44-4486Btdp Risk ScreeningFall Risk ScreeningProMercy Health Fairfield Hospital SystemStart: 04-71-4917Vkkngir ScreeningTobacco ScreeningProMercy Health Fairfield Hospital SystemStart: 04-10-2025 End: 15-52-0206Czrwdmy encounter rksbtcnyu19/27/2025 3:20 PM EDT Office Visit [facility] Internal Medicine - Family Medicine [address] [place] [address] Pam Stinson, SALES REPRESENTATIVE [employer] [address] [place] [address] [facility] Internal Medicine - [facility] MedicineStart: 04-04-2025 End: 55-71-2641Wwmxkeo encounter gpjhinzxz14/21/2025 9:00 AM EDT Office Visit [facility] Internal Medicine - Family Medicine [address] [place] [address] Pam Stinson, SALES REPRESENTATIVE [employer] [address] [place] [address] [facility] Internal Medicine - [facility] MedicineStart: 04-03-2025 End: 36-79-8800fjbgrzkkpg86/20/2025 8:00 AM EDT Infusion Stephany Trice Landaverde [facility] - Medical Oncology [address] [place] [phone] Stephany [facility]andaverde [facility] Medical OncologyStart: 04-01-2025 End: 53-13-0947zcxlwabnce92/18/2025 8:00 AM EDT Infusion Stephany Landaverde [facility] - Medical Oncology [address] [place] [address], [place] [phone] Stephany Landaverde [facility] - Medical OncologyStart: 03-30-2025 End: 33-08-5923crxlhrrhzq36/16/2025 8:00 AM EDT Infusion Stephany Landaverde [facility] - Medical Oncology [address] [place] [address] Stephany Landaverde [facility] - Medical OncologyStart: 03-28-2025 End: 07-65-0297ypghphczkn52/14/2025 8:30 AM EDT Infusion Stephany Landaverde [facility] - Medical Oncology [address] [place] [address] Stephany Landaverde [facility] - Medical OncologyStart: 03-26-2025 End: 51-34-1190uemjhkokrqXguqjxt L Kern [facility] - Medical OncologyStart: 03-24-2025 End: 52-49-2665oqtneporfu62/10/2025 8:00 AM EDT Infusion Stephany Landaverde [facility] - Medical Oncology [address] [place] [phone] Stephany Landaverde [facility] - Medical OncologyStart: 03-22-2025 End: 81-27-6762rrvwciuamq24/08/2025 8:30 AM EDT Infusion Stephany Landaverde [facility] - Medical Oncology [address] [place] [phone] Stephany Landaverde [facility] - Medical OncologyStart: 03-20-2025 End: 66-45-4517rcinzhmohx18/06/2025 8:00 AM EDT Infusion Stephany Landaverde [facility] - Medical Oncology [address] [place] [phone] Stephany Landaverde [facility] - Medical OncologyStart: 03-18-2025 End: 11-43-8161jvtrnvrdfmZizkicp L Kern [facility] - Medical OncologyStart: 03-16-2025 End: 72-91-7668dhiaxutkgyWpbkakw L [place]ern [facility] - Medical OncologyStart: 03-14-2025 End: 31-97-3565bgmruosulnIxywmir L Kern [facility] - Medical OncologyStart: 03-12-2025 End: 15-08-9611vdiewsjbzs27/28/2025 8:00 AM EDT Infusion Stephany Landaverde [facility] - Medical Oncology [address] [place] [phone] Stephany Landaverde [facility] - Medical OncologyStart: 27-92-3886Slnut BMI ScreeningAdult BMI ScreeningProMercy Health Fairfield Hospital SystemStart: 52-78-2119Jlicbcd ScreeningTobacco ScreeningProMercy Health Fairfield Hospital SystemStart: 69-94-4504Qdjqvzwqfh A1c measurementDiabetes: Hemoglobin I5HHOCBMercy Hospital St. John'sStart: 76-96-1142Ebukapfxzr ScreeningDepression ScreeningProUniversity Hospitals Geauga Medical Centertart: 30-88-3895Xvkh Risk ScreeningFall Risk ScreeningProUniversity Hospitals Geauga Medical Centertart: 03-01-2025 End: 00-28-7164Psrglde encounter xnaiodcpc79/17/2025 2:00 PM EDT Appointment [facility] - Mammography/DEXA Imaging [address] [place] [address] Casimiro Muñoz MD [address] [place] [address] [facility] - Mammography/DEXA ImagingStart: 14-94-9165Hdmbr, Roberta 4 Weeks IO AVN OS(2-3) NO OCTCVP Physicians Work Phone: Start: 40-04-1973Evfwq BMI Follow Up PlanAdult BMI Follow Up PlanAsheville Specialty Hospitaltart: 01-25-2025 End: 27-80-5755Xqxrupb encounter scmoodorh55/13/2025 2:15 PM EDT Office Visit Stephany Landaverde [facility] - Medical Oncology [address] [place] [phone] Casimiro Muñoz MD [address] [place] [address] [facility] L [facility] - Medical OncologyStart: 01-22-2025 End: 69-03-8675Ticquuc encounter axclgtkge23/10/2025 1:40 PM EDT Office Visit [facility] Internal Medicine - Family Medicine [address] [place] [address] Pam Stinson, SALES REPRESENTATIVE [employer] [address] [place] [address] [facility] Internal Medicine - Family MedicineStart: 16-14-1010Jwfraok cessation educationTobacco cessation counselingCATSKILL REGIONAL [facility]ICAL [facility]ENTER PhysiciansStart: 55-66-1938Mmzgg BMI Follow Up PlanAdult BMI Follow Up PlanWright-Patterson Medical Center SystemStart: 12-15-2024 Adult BMI ScreeningAdult BMI ScreeningProMercy Health Fairfield Hospital SystemStart: 12-15-2024 Depression ScreeningDepression ScreeningWright-Patterson Medical Center SystemStart: 12-15-2024 Fall Risk ScreeningFall Risk ScreeningProMercy Health Fairfield Hospital SystemStart: 12-15-2024 Tobacco ScreeningTobacco ScreeningProMercy Health Fairfield Hospital SystemStart: 11-28-2024 End: 77-78-8884Hdurzvh encounter bkhehbwhl91/14/2025 2:40 PM EST Office Visit [facility] Internal Medicine - Family Medicine [address] [place] [address] Pam Stinson, SALES REPRESENTATIVE [employer] [address] [place] [address] [facility] Internal Medicine - [facility] MedicineStart: 89-46-8934Wiiqc BMI ScreeningAdult BMI ScreeningProMercy Health Fairfield Hospital SystemStart: 11-24-2024 End: 38-34-7372Jhacgeu encounter sdijlkvjc12/10/2025 2:15 PM EST Office Visit [facility] Cardiology [address] [place] [phone] Radha Moran MD [address] [place] [address] [facility] Physicians CardiologyStart: 11-22-2024 End: 80-93-2037Aypitgf encounter binaqqitx79/08/2025 2:40 PM EST Office Visit [facility] Internal Medicine - Family Medicine [address] [place] [address] Pam Stinson, SALES REPRESENTATIVE [employer] [address] [place] [address] [facility] Internal Medicine - Family MedicineStart: 06-95-8252Mplmwwj Screening Tobacco ScreeningProUniversity Hospitals Geauga Medical Centertart: 09-13-2024 End: 66-55-9407Bzbgqtb encounter dfcrnfgzy15/30/2024 2:00 PM EDT Appointment [facility] - Cardiovascular [address] [place] [address] [phone] General Health Center - Cardiovascular Start: 09-08-2024 End: 39-39-1035Qwymcwi encounter skhryepec76/25/2024 2:15 PM EDT Office Visit Stephany L [facility] - Medical Oncology [address] [place] [phone] Casimiro Muñoz [place] [address] [place] [address] [place], [place] [phone] Stephany Carnes [facility] - Medical OncologyStart: 09-08-2024 End: 95-82-5013YBQ W Auto Differential panel - BloodCBC auto differential Lab Routine Malignant neoplasm of upper-outer quadrant of right female breast, unspecified estrogen receptor status (CMS-HCC) Malignant neoplasm of upper-outer quadrant of rightbreast in female, estrogen receptor positive (CMS-HCC) Expected: 09/08/2024 (Approximate), Expires:03/09/2025[facility] Comment on above:Expected: 09/08/2024 (Approximate), Expires: 03/09/2025Start: 09-08-2024 End: 90-29-1404Kxrarbylbrvwb metabolic 2000 panel - Serum or PlasmaComprehensive metabolic panel Lab Routine Malignant neoplasm of upper-outer quadrant of right female breast, unspecified estrogen receptor status (CMS-HCC) Malignant neoplasm of upper-outer quadrant of right breast in female, estrogen receptor positive (CMS-HCC) Expected: 09/08/2024 (Approximate), Expires: 03/09/2025 [facility] SystemComment on above:Expected: 09/08/2024 (Approximate), Expires: 03/09/2025Start: 46-49-5385Bhnnd BMI Follow Up PlanAdult BMI Follow Up PlanWright-Patterson Medical Center SystemStart: 42-57-4947Wxzvlximdy ScreeningDepression ScreeningProMercy Health Fairfield Hospital SystemStart: 42-09-6422Vybn Risk ScreeningFall Risk ScreeningAsheville Specialty Hospitaltart: 09-26-2024Medicare Annual Wellness (AWV) Medicare Annual Wellness (AWV)[facility] HealthcareStart: 09-26-2024Medicare Annual Wellness VisitMedicare Annual Wellness VisitAsheville Specialty Hospitaltart: 08-02-2024 End: 16-58-5613Bvytekx encounter gcpcgddop47/18/2024 1:00 PM EDT Office Visit [facility] Internal Medicine - Family Medicine [address] [place] [phone] Pam Stinson, SALES REPRESENTATIVE [employer] [address] [place] [address] [facility] Internal Medicine - Family MedicineStart: 79-52-0190Ahjycexah vaccinationInfluenza VaccineWright-Patterson Medical Center SystemStart: 07-11-2024 End: 60-58-0464Jvnstme encounter lckoaztsa91/27/2024 2:30 PM EDT Office Visit [facility] Neurology [address] [place] [phone] Luis Oliver MD [address] [place] [address], [address], [address] [place], [place] [phone] [facility] NeurologyStart: 03-09-2024 End: 71-24-3176Yoylkvf encounter rmyhcmotu74/25/2024 3:15 PM EDT Office Visit Stephany Carnes [place] [facility] - Medical Oncology [address] [place] [address] Casimiro Muñoz MD [address] [facility] [address] [place] [address] Stephany Carnes [place] [facility] - Medical OncologyStart: 03-09-2024 End: 02-66-5939IV Breast DiagnosticMammography diagnostic bilateral with CAD Imaging Routine Malignant neoplasm of upper-outer quadrant of right female breast, unspecified estrogen receptor status (CMS-HCC) Malignant neoplasm of upper-outer quadrant of right breast in female, estrogen receptor positive (CMS- HCC) Expected: 03/09/2024, Expires: 03/09/2025[facility] Work Phone: Comment on above:Expected: 03/09/2024, Expires: 03/09/2025Start: 02-25-2024 End: 47-30-1352VS Skull base to mid-thighPET CT skull to thigh Imaging Routine Malignant neoplasm of upper-outer quadrant of right female breast, unspecified estrogen receptor status (CMS-HCC) Malignant neoplasm of upper-outer quadrant of right breast in female, estrogen receptor positive (CMS-HCC) Expected: 02/25/2024, Expires: 11/25/2024[facility] Work Phone: Comment on above:Expected: 02/25/2024, Expires: 11/25/2024Start: 02-24-2024 End: 71-12-7344Scuehj antigen 15-3Cancer antigen 15-3 Lab Routine Malignant neoplasm of upper-outer quadrant of right female breast, unspecified estrogen receptor status (CMS-HCC) Malignant neoplasm of upper-outer quadrant of right br east in female, estrogen receptor positive (CMS-HCC) Expected: 02/24/2024 (Approximate), Expires: 11/25/2024ProOur Lady Of Mercy HospitalCaseRev [facility] SystemComment on above: Expected: 02/24/2024 (Approximate), Expires: 11/25/2024Start: 02-24-2024 End: 97-65-6535Zyljzr antigen 27-29Cancer antigen 27-29 Lab Routine Malignant neoplasm of upper-outer quadrant of right female breast,unspecified estrogen receptor status (CMS-HCC) Malignant neoplasm of upper-outer quadrant of right b reast in female, estrogen receptor positive (CMS-HCC) Expected: 02/24/2024 (Approximate), Expires: 11/25/2024[facility] CampusComment on above: Expected: 02/24/2024 (Approximate), Expires: 11/25/2024Start: 02-24-2024 End: 77-65-8741TSB W Auto Differential panel - BloodCBC auto differential Lab Routine Malignant neoplasm of upper-outer quadrant of right female breast, unspecified estrogen receptor status (CMS-HCC) Malignant neoplasm of upper-outer quadrant of rightbreast in female, estrogen receptor positive (CMS-HCC) Expected: 02/24/2024 (Approximate), Expires:11/25/2024[facility] Comment on above:Expected: 02/24/2024 (Approximate), Expires: 11/25/2024Start: 02-24-2024 End: 69-04-1875Yfyrlpszjwhfn metabolic 2000 panel - Serum or PlasmaComprehensive metabolic panel Lab Routine Malignant neoplasm of upper-outer quadrant of right female breast, unspecified estrogen receptor status (CMS-HCC) Malignant neoplasm of upper-outer quadrant of right breast in female, estrogen receptor positive (CMS-HCC) Expected: 02/24/2024 (Approximate), Expires: 11/25/2024 [facility] SystemComment on above:Expected: 02/24/2024 (Approximate), Expires: 11/25/2024Start: 01-13-2024 End: 65-13-9318Bhyejkp encounter ersoyintm53/29/2024 1:00 PM EST [facility] [address] [place] [address] Pam Stinson, SALES REPRESENTATIVE [employer] [address] [place] [address] [facility] Internal Medicine - Family [facility] Hospitaltart: 69-50-4666Uaxso panelLipids [facility]ITALWhite [facility] Medical [facility]OSPITALStart: 02-02-2023 End: 07-99-1423Epcjanb encounter yudwmmafa12/21/2023 Appointment IP UnitSTVZ Cath LabStart: 01-18-2023 End: 42-32-4689Sdrpb metabolic 2000 panel - Serum or PlasmaBasic Metabolic Panel Lab STAT Severe aortic valve stenosis Expected: 01/18/2023, Expires: 01/14/2024 [email or web address], Inc[facility] Phone: comment on above:Expected: 01/18/2023, Expires: 01/14/2024Start: 12-17-2022 End: 54-64-6133Pfnwi metabolic 2000 panel - Serum or PlasmaBasic Metabolic Panel Lab Routine Severe aortic valve stenosis Expected: 12/17/2022, Expires: ON [facility]OSPITALmap2[facility], Inc[facility] Phone: comment on above:Expected: 12/17/2022, Expires: 12/10/2023Start: 12-17-2022 End: 13-79-6183Snffgdfbdm and HematocritHemoglobin and Hematocrit Lab Routine Severe aortic valve stenosis Expected: 12/17/2022, Expires: 12/10/2023[facility] WAXHAWmap2app, Inc. Phone: comment on above:Expected: 12/17/2022, Expires: 12/10/2023Start: 11-51-4337Toqvdc Wellness Visit (AWV)Annual Wellness Visit (AWV)[facility]IN[facility] HOSPITALLaroscoAllakaket: 33-59-3311Tzrjwqbad vaccinationFlu vaccine (Season Ended)[facility] [email or web address] Phone: start: 55-84-7920BIPGK-19 Vaccine (3 - Booster for Pfizer series)COVID-19 Vaccine (3 - Booster for Pfizer series)[facility] HOSPITALLaroscoart: 72-24-4688NABZN-19 Vaccine (3 - Pfizer risk series)COVID-19 Vaccine (3 - Pfizer risk series)[facility] SystemStart: 19-28-0439Lkqgfdtc vaccine (1 of 2)Shingles vaccine (1 of 2)[facility]OSPITALStart: 48-42-7400Klnxdtszpksism of varicella zoster vaccineZoster (Shingles) Vaccine (1 of 2)[facility]ty Hospitaltart: 18-22-2735FEgH,Tdap and Td Vaccines (1 - Tdap)DTaP,Tdap and Td Vaccines (1 - Tdap)[facility] SystemStart: 40-93-0287BViZ/Tdap/Td vaccine (1 - Tdap)DTaP/Tdap/Td vaccine (1 - Tdap)[facility]Start: 07-64-1226Ctuxdfleu C screeningHepatitis C screenBON [facility] Memorial Hospitalart: 15-28-7944YBLDZ-19 Vaccine (1)COVID-19 Vaccine (1) [facility] Phone: start: 53-99-4865Iwftoamkii ScreenDepression ScreenBON Trumbull Memorial Hospitalart: 19-75-8912Zkzmnnay screeningDiabetes: Retinopathy ScreeningMercy Hospital St. John'sStart: 01-30-3257Xehlwhdveb measurementCreatinine monitoringGenesis Hospital CaroGen Work Phone: start: 63-05-5839Cegduioai monitoringPotassium monitoringGenesis Hospital CaroGen Work Phone: bacteria identified in Blood by Aerobe culture [employer] Work Phone: End: 55-10-8914Hxvmwvtt identified in Urine by CultureUrine culture (clean catch) Microbiology Routine Acute cystitis without hematuria 1 Occurrences star ting 02/09/2024 until 02/08/2025[facility] Work Phone: Comment on above:1 Occurrences starting 02/09/2024 until 5Basic metabolic 2000 panel - Serum or PlasmaBasic metabolic panel Lab Routine Staphylococcus aureus bacteremia with sepsis ([facility]) MRSA (methicillin resistant Staphylococcus aureus) 03/12/2025 8:20 AM EDTriHealth McCullough-Hyde Memorial HospitalBasic metabolic 2000 panel - Serum or PlasmaBasic metabolic panel Lab Routine Staphylococcus aureus bacteremia with sepsis ([facility]) MRSA (methi cillin resistant Staphylococcus aureus) 03/20/2025 9:02 AM EDTProMedica Work Phone: Basic metabolic 2000 panel - Serum or PlasmaBasic metabolic panel Lab Routine Staphylococcus aureus bacteremia with sepsis (CMS- HCC) MRSA (methicillin resistant Staphylococcus aureus) 04/03/2025 8:50 AM EDT airpim End: 12-38-1230Zuvhh Bank SpecimenBON [facility] Work Phone: comment on above:Once for 1 Occurrences starting 12/07/2022 until 12/07/2022 End: 88-11-5751Stppsb antigen 15-3Cancer antigen 15-3 Lab Routine Malignant neoplasm of upper-outer quadrant of right female breast, unspecified estrogen receptor status (CMS-HCC) every 3 months for 50 Occurrences starting 11/25/2023 until 11/25/2024ProOur Lady Of Mercy HospitalCodenvy SystemComment on above:every 3 months for 50 Occurrences starting 11/25/2023 until 11/25/2024 End: 06-79-5926Drxfwj antigen 15-3Cancer antigen 15-3 Lab Routine Malignant neoplasm of upper-outer quadrant of right breast in female, estrogen receptor positive (CMS-HCC) 1 Occurrences starting 01/15/2025 until 01/15/2026ProTilth Beauty SystemComment on above:1 Occurrences starting 01/15/2025 until 01/15/2026 End: 14-45-3875Lnhmja antigen 27-29Cancer antigen 27-29 Lab Routine Malignant neoplasm of upper-outer quadrant of right female breast,unspecified estrogen receptor status (CMS-HCC) every 3 months for 50 Occurrences starting 11/25/2023 until 11/25/2024[facility] CampusCodenvy SystemComment on above:every 3 months for 50 Occurrences starting 11/25/2023 until 11/25/2024 End: 26-03-9019Rlgkyz antigen 27-29Cancer antigen 27-29 Lab Routine Malignant neoplasm of upper-outer quadrant of right breast in female, estrogen receptor positive (CMS-HCC) 1 Occurrences starting 01/15/2025 until 01/15/2026ProOur Lady Of Mercy HospitalCodenvy SystemComment on above:1 Occurrences starting 01/15/2025 until 01/15/2026 End: 33-34-8710Mnbvscggdiharny and angiography procedure details panelCardiac Catheterization Cardiac Cath Routine One Time for 1 Occurrences starting 11/24/2022 until 11/24/2022ON [employer] Work Phone: Comment on above:One Time for 1 Occurrences starting 11/24/2022 until 11/24/2022 End: 35-78-5054Qplabcffjhuemmn and angiography procedure details panelCardiac Catheterization Cardiac Cath Routine One Time for 1 Occurrences starting 12/07/2022 until 12/07/2022ON [employer] Work Phone: comment on above:One Time for 1 Occurrences starting 12/07/2022 until 12/07/2022 End: 01-38-3697ZJQ W Auto Differential panel - BloodCBC with auto diff Lab Routine Malignant neoplasm of upper-outer quadrant of right female breast, un specified estrogen receptor status ([facility]) every 3 months for 50 Occurrences starting 11/25/2023 until 11/25/2024[facility] Work Phone: Comment on above:every 3 months for 50 Occurrences starting 11/25/2023 until 11/25/2024 End: 45-65-6848ALB W Auto Differential panel - BloodCBC with auto diff Lab Routine Malignant neoplasm of upper-outer quadrant of right breast in female, estrogen receptor positive ([facility]) 1 Occurrences starting 01/15/2025 until 01/15/2026[facility] Work Phone: Comment on above:1 Occurrences starting 01/15/2025 until 6CBC W Auto Differential panel - BloodCBC with auto diff Lab Routine Staphylococcus aureus bacteremia with sepsis ([facility]) MRSA (methicillin resistant Staphylococcus aureus) 03/12/2025 8:20 AM [employer] CBC W Auto Differential panel - BloodCBC with auto diff Lab Routine Staphylococcus aureus bacteremia with sepsis ([facility]) MRSA (methicillin resistant Staphylococcus aureus) 03/20/2025 9:02 AM [employer] CBC W Auto Differential panel - BloodCBC with auto diff Lab Routine Staphylococcus aureus bacteremia with sepsis ([facility]) MRSA (methicillin resistant Staphylococcus aureus) 03/26/2025 9:44 AM [employer] Work Phone: CBC W Auto Differential panel - BloodCBC with auto diff Lab Routine Staphylococcus aureus bacteremia with sepsis ([facility]) MRSA (methicillin resistant Staphylococcus aureus) 04/03/2025 8:50 AM DINKlifeCK Telit Wireless SolutionsCK Total Lab Routine Staphylococcus aureus bacteremia with sepsis ([facility]) MRSA (methicillin resistant Staphylococcus aureus) 03/12/2025 8:20 AM [employer] Work Phone: ck Tel[employer] Wireless SolutionsCK Total Lab Routine Staphylococcus aureus bacteremia with sepsis ([facility]) MRSA (methicillin resistant Staphylococcus aureus) 04/03/2025 8:50 AM [employer] Work Phone: End: 27-65-4973Sfxixvixgekss metabolic 1999 panel - Serum or PlasmaComprehensive metabolic panel Lab Routine Malignant neoplasm of upper-outer quadrant of right female breast, unspecified estrogen receptor status ([facility]) every 3 months for 50 Occurrences starting 11/25/2023 until 11/25/2024[facility] HospitalTilth Beauty System Comment on above:every 3 months for 50 Occurrences starting 11/25/2023 until 11/25/2024 End: 71-18-1593Gpxclrdxyitkw metabolic 1999 panel - Serum or PlasmaComprehensive metabolic panel Lab Routine Malignant neoplasm of upper-outer quadrant of right breast in female, estrogen receptor positive ([facility]) 1 Occurrences starting 01/15/2025 until 01/15/2026[facility] ElementsComment on above:1 Occurrences starting 01/15/2025 until 01/15/2026 End: 70-15-5212HX CARDIAC W C STC MORP CARD ONLYBON [employer] Work Phone: comment on above:1 Occurrences starting 01/13/2023 until 01/13/2023 End: 46-14-7918YHC 12 leadEKG 12 lead ECG Routine One Time for 1 Occurrences starting 12/07/2022 until 12/07/2022ON [employer] Work Phone: comment on above:One Time for 1 Occurrences starting 12/07/2022 until 12/07/2022Fingerstick glucose checksFingerstick glucose checks Point of Care Testing Routine Intractable nausea and vomiting Type 2 diabetes mellitus without complication, without long-term current use of insulin ([facility]) Generalized weakness Ordered: 07/05/2025ProTilth Beauty SystemComment on above:Ordered: 07/05/2025Glucose [Mass/volume] in Serum or PlasmaPOCT glucose Point of Care Testing Routine 4X Daily (AC & HS) until discontinued starting 12/07/2022 [employer] Phone: comment on above:4X Daily (AC & HS) until discontinued starting 12/07/2022 End: 43-06-6489Fciayiccft and HematocritHemoglobin and Hematocrit Lab STAT Post Transfusion Post Transfusion Post Transfustion for 1 Occurrences starting 12/09/2022 until 12/10/2022 [employer] Phone: comuadh on above:Post Transfusion Post Transfusion Post Transfustion for 1 Occurrences starting 12/09/2022 until 12/10/2022Oxygen therapy [Minimum Data Set]Initiate Oxygen Therapy Protocol Respiratory Care Routine As Needed until discontinued starting 11/24/2022 [employer] Phone: comment on above:As Needed until discontinued starting 11/24/2022Oxygen therapy [Minimum Data Set]Initiate Oxygen Therapy Protocol Respiratory Care Routine As Needed until discontinued starting 12/07/2022 [employer] Phone: comlcym on above:As Needed until discontinued starting 12/07/2022Oxygen therapy [Minimum Data Set]Initiate Oxygen Therapy Protocol Respiratory Care Routine As Needed until discontinued starting 12/07/2022 KitOrderComment on above:As Needed until discontinued starting 12/07/2022 End: 29-46-4985PUOM Line RemovalPICC Line Removal Procedures Routine Staphylococcus aureus bacteremia with sepsis ([facility]) 1 Occurrences starting 03/09/2025 until 03/09/2026[employer] Phone: Comment on above:1 Occurrences starting 03/09/2025 until 03/09/2026 End: 69-19-3890AFW CHEM8 INCLUDES CALC. ANION GAPPOC CHEM8 INCLUDES CALC. ANION GAP Point of Care Testing STAT One Time for 1 Occurrences starting 11/24/2022 until 11/24/2022 [employer] Phone: comvjjw on above:One Time for 1 Occurrences starting 11/24/2022 until 11/24/2022 End: 48-66-8028IJU CHEM8 INCLUDES CALC. ANION GAPPOC CHEM8 INCLUDES CALC. ANION GAP Point of Care Testing STAT One Time for 1 Occurrences starting 12/07/2022 until 12/07/2022 [employer] Phone: comynql on above:One Time for 1 Occurrences starting 12/07/2022 until 12/07/2022 End: 77-19-1391HZWGQHQ RBC (CROSSMATCH), 1 UnitsPREPARE RBC (CROSSMATCH), 1 Units Blood Bank STAT Once for 1 Occurrences starting 12/07/2022 until 0 12/07/2022 [employer] Phone: Comvbsd on above:Once for 1 Occurrences starting 12/07/2022 until 12/07/2022 End: 17-17-2229PYAJXIX RBC (CROSSMATCH), 1 UnitsPREPARE RBC (CROSSMATCH), 1 Units Blood Bank Routine Once for 1 Occurrences starting 12/08/2022 until 12/08/2022 [employer] Phone: Comlugf on above:Once for 1 Occurrences starting 12/08/2022 until 12/08/2022 End: 27-13-2328BBBLJRC RBC (CROSSMATCH), 1 UnitsPREPARE RBC (CROSSMATCH), 1 Units Blood Bank Routine Once for 1 Occurrences starting 12/09/2022 until 12/09/2022 [employer] Phone: comejlk on above:Once for 1 Occurrences starting 12/09/2022 until 12/09/2022 End: 87-25-6648BZIHUHTB SPECIMENBON [employer] Phone: comment on above:Once for 1 Occurrences starting 12/08/2022 until 12/08/2022 Immunizations Immunization DateImmunizationNotesCare UujhqjedKqzvvgsl23-01-8020Dnqnlouv trivalent influenza vaccine, adjuvanted, preservative freeValerie Stinson SALES REPRESENTATIVE [employer] Work Phone: [facility] CampusXmztfr72-34-1510Jttsdnizkstf, In Clinic,; Translations: [Drug or medicament (substance)]Pam Stinson SALES REPRESENTATIVE [employer] Work Phone: [facility] CampusFdkcie49-94-9703sdzxhwfky virus vaccine, unspecified formulationJefferson Health06-10-2024 tuberculin skin test; unspecified formulationJefferson Health05-29-2024tuberculin skin test; unspecified formulationOt[facility]09-26-2023Influenza Vaccine, Quadrivalent, Adjuvanted Rosario [facility]09-26-2023influenza virus vaccine, unspecified formulation[facility]05-30-2023 tuberculin skin test; unspecified formulationJefferson Health05-23-2023tuberculin skin test; unspecified formulationOttawa County Health Center09-22-2022Influenza Vaccine, Quadrivalent, Adjuvanted [facility]10-13-2021influenza, high dose seasonal, preservative-freeResearch [facility] Hospital07-14-2021pneumococcal conjugate vaccine, 13 valentAngela [facility]03-23-2021 COVID-19, mRNA, LNP-S, PF, 30mcg/0.3mL DoseResearch [facility]02-23-2021COVID-19, mRNA, LNP-S, PF, 30mcg/0.3mL DoseO[facility]01-11-2021influenza, injectable, quadrivalent, preservative freeResearch [facility]10-16-2020Influenza, High-dose, QuadrivalentResearch [facility]07-02-2020 pneumococcal polysaccharide vaccine, 23 valentJefferson Health06-26-2020tuberculin skin test; unspecified formulationOttawa County Health Center10-31-2019influenza, injectable, quadrivalent, contains preservativeAngela [facility]10-28-2019influenza, injectable, quadrivalent, preservative freeAngela [facility]10-17-2018influenza, injectable, quadrivalent, preservative freeAngela [facility]10-24-2017influenza, injectable, quadrivalent, preservative freeAngela [facility]08-26-2015pneumococcal polysaccharide vaccine, 23 valentAngela [facility] 28-71-6438wftdddxaxkwz polysaccharide vaccine, 23 valentCherly [facility] Payers DatePayer CategoryPayerPolicy [id number]-pay2025Medicare (Managed Care)[employer] Member Subscriber Plan / Payer (Effective 2024-Present) Name: Cuca Dee Relation to Subscriber: Self Name: Cuca Dee Payer ID: Not on file Group ID: [id number] Type: Not on file Address: [address] [place] [id number] 2023Medicare [id number] [id number] [id number] 2022 [id number] 2011Medicare1.2.840.0199[id number] 2011Medicare [id number] [id number] [id number] 2.16.840.1.858243.3.57[id number] 2.16.840.1.281743.3.57[id number] 2.16.840.1.027757.3.579.2.2[id number] 2.16.840.1.283178.3.579.2.90986-86-4426Necnjgd304932574 2.16.840.1.561252.3.579.2.66612-52-2345Mvpbhso976328003 2.16.840.1.068207.3.579.2.75020-26-7363Uejpqgf311165050 2.16.840.1.856359.3.579.2.36073-89-4790Bodfeqb376116252 2.16.840.1.284772.3.579.2.67197-98-6610Mswaimd797901083 2.16.840.1.357061.3.579.2.39874-33-9941Ykksdzx371078433 2.16.840.1.426389.3.579.2.18987-37-3824Boijlvw3800674 2.16.840.1.256484.3.579.2.774378-16-8343Recwhqw8910363 2.16.840.1.020616.3.579.2.400169-48-9620Sulztbx339835813 2.16.840.1.791849.3.579.2.776777-22-2031Pkjztpa668262443 2.16840.1.757380.3.579.2.371894-46-2243Agcqvjw968680523 2.16.840.1.195710.3.579.2.579776-36-9718Qftkysd713538413 2.16840.1.622714.3.579.2.186455-14-7172Ucbixug04871735 2.16840.1.082545.3.579.2.535578-23-1642Fvadveb57603215 2.840.1.410922.3.579.2.684320-73-9499Yhmhyhw305024614 2.840.1.419747.3.579.2.951186-19-5821Aguviea42423644 2.840.1.923982.3.579.2.645250-35-0327Uxymtgd62153829 2.840.1.467913.3.579.2.122114-67-7057Uxqmopn13117754 2.840.1.958341.3.579.2.294863-83-1066Dynqurg69742718 2.16840.1.458860.3.579.2.351316-10-9956Iskviav682557566 2.16840.1.741046.3.579.2.946045-61-2003Hwagezf579417340 2.16840.1.398878.3.579.2.467018-02-4076Joxqtbo028954705 2.16840.1.943306.3.579.2.688659-36-6994Cwerwhl672232609 2.16840.1.121854.3.579.2.750647-51-7000Snlgstt872253813 2.16840.1.017747.3.579.2.169207-53-4655Hqwyvse243713813 2.16840.1.881148.3.579.2.901508-34-5675Lgoujmb225551397 2.16840.1.202817.3.579.2.592393-56-7795Cdrsdxp885789754 2.16840.1.442103.3.579.2.192451-77-5905Dsrflyb484017977 2.16840.1.764938.3.579.2.186627-79-7447Krxakav702491671 2.840.1.908605.3.579.2.291779-09-1168Ypadape130603912 2.840.1.148903.3.579.2.844970-51-9625Wgqmxlm454345603 2.16840.1.961344.3.579.2.356481-49-3241Qrlyzqx040067747 2.16840.1.295326.3.579.2.331937-36-9893Uenrbcx130614181 2.840.1.849668.3.579.2.892007-96-6033Pkppfgm462506955 2.16840.1.590587.3.579.2.128854-60-4435Mnkgmil165647580 2.16840.1.781903.3.579.2.775791-97-4893Cefmelo593218417 2.16840.1.262770.3.579.2.111545-81-6298Ynvciwy301255823 2.16.840.1.793646.3.579.2.898020-83-3947Beosqin400699734 2.16.840.1.203725.3.579.2.627372-72-7259Nchkshz342643633 2.16.840.1.871549.3.579.2.545412-26-2564Myuymmq326690363 2.16840.1.523140.3.579.2.135672-39-3167Bgtlxps491903928 2.16840.1.296855.3.579.2.074950-86-3689Omrjwys128745201 2.16840.1.253313.3.579.2.508380-11-9497Dtbxucg642833545 2.16840.1.614858.3.579.2.311096-27-3081Njhayys847659188 2.16840.1.307738.3.579.2.342918-85-4110Oorcpng743717248 2.16840.1.079981.3.579.2.725549-69-4649Wticrbn684738949 2.16840.1.793681.3.579.2.192463-40-4923Xfmxbua359248678 2.16840.1.543262.3.579.2.444467-39-9779Vhujuwm393516853 2.16840.1.245567.3.579.2.072118-45-6530Iqerisv478251509 2.16.840.1.204698.3.579.2.170057-21-6150Tbdzafw535891357 2.16840.1.578520.3.579.2.180077-59-9621Qxxiydx297863879 2.16.840.1.563799.3.579.2.693413-86-9682Zzrcwsi962575454 2.16.840.1.643197.3.579.2.222010-35-1949Tioujng097890048 2.16.840.1.015800.3.579.2.524417-12-9545Enfifst936633149 2.16.840.1.987820.3.579.2.591020-98-5898Ynfydsf531440281 2.16.840.1.096420.3.579.2.286772-80-1771Ttgzxiv520726740 2.16.840.1.815846.3.579.2.897613-82-7576Nfatgze911643657 2.16840.1.099760.3.579.2.638749-25-4491Twmqwqt273292898 2.16.840.1.562894.3.579.2.559226-77-5852Wpwfodd778158299 2.16.840.1.555945.3.579.2.734467-72-2220Yzrarha165362761 2.16840.1.996829.3.579.2.356967-12-8234Yerzfvu878808713 2.16840.1.698322.3.579.2.271535-43-8261Ucpfskc778371157 2.16.840.1.542006.3.579.2.911120-98-5726Fmdilca771787024 2.16.840.1.230748.3.579.2.683984-93-1806Kbgxygl092286503 2.16840.1.323492.3.579.2.147268-18-6668Sssigtn947008551 2.16840.1.711618.3.579.2.674534-36-4044Rrujwpv468585692 2.840.1.662412.3.579.2.539215-77-2602Dkhioug543370418 2.840.1.386940.3.579.2.859558-06-5465Ulnzotu264322699 2.840.1.922819.3.579.2.126761-43-9782Jmebxpk117844742 2.0.1.686434.3.579.2.612487-04-4445Mjjwlkl827814413 2..1.069410.3.579.2.861554-03-0742Yxrbpkn850928408 2.0.1.472711.3.579.2.523791-00-8161Pqfturi165165209 2..1.512659.3.579.2.565199-35-0984Sidayuw31768981 2..1.126353.3.579.2.008431-22-6949Faqqecs67283132 2.0.1.231652.3.579.2.044886-60-2773Ysreljz51798220 2.840.1.604577.3.579.2.470885-07-4240Yfgxubg59856977 2.0.1.325293.3.579.2.201446-91-1841Behleeh34361253 2.840.1.137932.3.579.2.1861YfsguezCHB761V20689 h668kd96-b754-6xtn-657e-38s238s8u622Rggxfdo38290857 2..1.067512.3.579.2.531 Social History DateTypeDetailFacilityStart: 10-15-2014 End: 70-47-5439Acpplhe smoking status NHISNever smokerJEAN [employer] Start: 10-15-2014 End: 29-33-1346Tjkegcc intakeCurrent non-drinker of alcohol (finding)[facility]Take[facility] Phone: start: 65-09-1612Jjjyicy CommentoccaisionalKettering Memorial HospitalCommunity Ventures Phone: start: 64-79-0531Vir Assigned At BirthNot on [facility] CampusCommunity [facility]ures Phone: start: 11-14-2022 End: 50-69-8705Iblqsabh to SARS-CoV-2 (event)Not sureDIGNITY HEALTH [facility] [employer] Start: 10-05-2022 End: 73-40-2926Ckijjoo use and exposureSmokeless tobacco non-userProOur Lady Of Mercy HospitalCaseRev Health SystemStart: 10-28-2024 End: 49-43-2048Ybyfauw of Social functionProMedica Health SystemStart: 10-28-2024 End: 54-28-8191WSL UtilitiesProOur Lady Of Mercy HospitalCaseRev Health SystemHas the electric, gas, oil, or water Bitstrips threatened to shut off services in your home in past 12MoNo [facility] Health SystemDo you belong to any clubs or organizations such as methodist groups, unions, fraternal or athletic groups, or [...] the time - these days [OSQ]To some extentWright-Patterson Medical Center SystemStart: 17-29-7186TwzEiftmb (finding)[facility] SystemStart: 02-71-6894Txzhgb identityIdentifies as female gender (finding)[facility] SystemStart: 02-24-3577Seldzg orientationHeterosexual (finding)[facility] SystemDo you feel stress - tense, restless, nervous, or anxious, or unable to sleep at night because yourmind is troubled all the time - these days [OSQ]Not at allWright-Patterson Medical Center SystemStart: 32-73-8766Psxqdut use and exposureNon-Smoking Tobacco Use DetailsCV PhysiciansStart: 1945 Sex Assigned At BirthFemaleC PhysiciansTobacco smoking status NHISUnknown if ever smokedNOMS HealthcareStart: 06-06-2025 End: 10-21-8470Fvjgbondu beverage intakeEx-drinker (finding)[facility] NEGATED: Highlighted rowStart: 05-06-4084Cenbilg smoking status NHISUnknown if ever smokedCVP PhysiciansNEGATED: Highlighted rowStart: 36-70-2558Jqgzowd intake Alcohol Use DetailsCV Physicians Medical Equipment Procedure CodeEquipment CodeEquipment Original TextEquipment IdentifierDates Valve Aor Evolut Fx 26mm - [id number] - [id number]: 08-17-2023 [id number], [id number], [id number]: 10-11-2020 End: 33-65-5181Dttblz Bn Traumacem V+ Polymethylmethacrylate Gls Inj Pwdr - [id number]: 85-73-6977Mxhw Im 400mm 10mm 125d Cnn Tfn-Adv Lat Rlf Cut Ti Niobium - [id number]: 09-90-1531Joheg Im Nl Au 75mm 10.35mm Tfn-Adv Hlcl Fem Prox Ti Niobium - [id number]: 07-13-2025 Screw Bn 44mm 5mm Lck X25 Strl Lf Im Nl - [id number]: 07-13-2025 Screw Lck Lght Grn 40mm 5mm X25 Fem Ti Niobium Al Strl - [id number] Start: 87-58-2840Lywhby Bn Traumacem V+ Polymethylmethacrylate Gls Inj Pwdr - [id number], [id number]_imp FDAStart: 02-16-4072Dkqr Im 400mm 10mm 125d Cnn Tfn-Adv Lat Rlf Cut Ti Niobium - [id number]: 18-98-2029Lhopb Im Nl Au 80mm 10.35mm Tfn-Adv Hlcl Fem Prox Ti Niobium - [id number]: 11-06-4304Xspih Lck Lght Grn 40mm 5mm X25 Fem Ti Niobium Al Strl - [id number], [id number]_imp FDAStart: 70-76-1560Lsbxp Bn 44mm 5mm Lck X25 Strl Lf Im Nl - [id number], [id number]_imp FDAStart: 08-06-2025 Goals DatePatient GoalDesired Activity/StatePersonal health goalComment on above: Evaluation of progress towards goal: Patient and daughter are agreeable to [facility] for RN and PT providing patient [...] antibiotics at home or copay costs for correction care. Patient and daughter will need to [...] Patient would only like to discharge to [facility], if not patient would like to return home.Personal health goal Functional Status [id number] score [AUDIT-C]0 07/12/2025 2:23 PM EDT [facility]uster [facility] Mental Status DateAssessmentResultFacilAscension Saint [facility] Clinical Notes 03-20-2021 to 09-05-2025 Note Date & [id number] History of Present illness Narrative* Sacha Rosales, - 09/05/2025 3:40 PM EDT Patient Name: Cuca Dee Date of : 1945 Date of Service: 09/05/2025 Facility: [facility] [place] Type of Visit: Acute Visit Subjective Cuca Dee is a 80 y.o. female seen today at [facility] facility for acute and regular visit. Nurses [...] disease due to type 2 diabetes mellitus ([facility]-HCC) 2. Hypertensive heart and chronic kidney disease with heart failure and stage 1 through stage 4 chronic kidney disease, or unspecified chronic kidney disease (CMS-HCC) 3. Nausea and vomiting, unspecified vomiting type Her GFR dropped from 29 to 13. She has been vomiting lately. She maybe a little dehydrated. Going to refer her back to Nephrology. She was seeing Nephrology in [place] so we will try to keep it closer. There is a traffic reporter in [place] we will try to get her into [facility]. I asked her if she would want [...] breast cancer. Poor prognosis. [facility] History of Present illness Narrative* Ra Marinelli [...] to bilateral lower extremity. She is currently [facility]. She notes pain with attempts at mobilization. [...] 09/06/25 - Physical Therapy: Continue therapy at correction facility - [facility]: Vit D3 2,000 [...] DECISION-MAKING POST OP GLOBAL [facility]Sum[facility] [place] CampusCaseRev [facility] [id number] History of Present illness Narrative* Sacha Rosales, DO - 08/14/2025 11:59 PM EDT Patient Name: Cuca Dee Date of : 1945 Date of Service: 08/14/2025 Facility: [facility] Type of Visit: Skilled Visit Subjective Cuca Dee is a 80 y.o. female seen today at [facility] facility for skilled visit. Cuca is in [...] pulmonary disease, unspecified COPD type ([facility]) 5. Hypertensive heart and chronic kidney disease with heart failure and stage 1 through stage 4 chronic kidney disease, or unspecified chronic kidney disease ([facility]) 6. Anemia, unspecified type She is confused. Will check for underlying cause with UA and BMP pending. Will treat accordingly. Anemia likely due to CKD and recent hip surgery. Monitor for now. Continue therapy to reach maximum improvement. Continue other orders as directed. ELECTRONICALLY SIGNED BY: Sacha Rosales DO documented in this encounterSumma Health [facility] Campus09-26-2025 History of Present illness Narrative* Sacha Rosales DO - 08/10/2025 11:59 PM EDT Patient Name: Cuca Dee Date of : 1945 Date of Service: 08/10/2025 Facility: [facility] Type of Visit: Acute Visit Subjective Cuca Dee is a 80 y.o. female seen today at correction facility for problem visit. Nurses reported increased [...] CP or SOB so doubt PE or WI. Will give a liter of fluidbut then stop since she has CHF. Await stat lab results. Continue therapy, other orders as directed. ELECTRONICALLY SIGNED BY: Sacha Rosales DO documented in this encounterBrightlook HospitalHealth Elements09-24-2025 History of Present illness Narrative* Sacha Rosales DO - 08/08/2025 11:59 PM EDT Patient Name: Cuca Dee Date of : 1945 Date of Service: 08/08/2025 Facility: [facility] Type of Visit: Skilled Visit Subjective Cuca Dee is a 80 y.o. female seen today at correction facility for skilled visit. Cuca returns from [...] healing 2. Stage 3b chronic kidney disease ([facility]) 3. Type 2 diabetes mellitus with stage 4 chronic kidney disease, without long- term current use of insulin ([facility]) 4. Chronic diastolic congestive heart failure ([facility]) Medically stable. Continue therapy to reach maximum improvement. All medications reviewed and are medically necessary. ELECTRONICALLY SIGNED BY: Sacha Rosales DO documented in this encounterProMedica Health [id number] History of Present illness Narrative* Sacha Rosales, DO - 08/03/2025 11:59 PM EDT Patient Name: Cuca Dee Date of : 1945 Date of Service: 08/03/2025 Facility: [facility] Type of Visit: Skilled Visit Subjective Cuca Dee is a 80 y.o. female seen today at correction facility for skilled visit. Cuca is participating [...] left femur 2. 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 3. Chronic diastolic congestive heart failure ([facility]) 4. S/p TAVR (transcatheter aortic valve replacement), bioprosthetic 5. Hypertensive heart and chronic kidney disease with heart failure and stage 1 through stage 4 chronic kidney disease, or unspecified chronic kidney disease ([facility]) She is going to have surgery on a left hip lesion. She does not have any symptoms of coronary artery disease although she is unable to do 4 METS of activity. She will return here and do therapy following surgery. Continue other orders as directed. ELECTRONICALLY SIGNED BY: Sacha Rosales DO documented in this encounterSumma Health [facility] Campus09-18-2025 Miscellaneous Notes* Telephone Encounter - Kathie Ybarra [...] if she had questions/concerns. documented in this encounterSumma Health [facility] Campus09-18-2025 Telephone encounter Note* Telephone Encounter - Kathie [...] after 8am tomorrow if she had questions/concerns. [facility] [id number] History of Present illness Narrative* Ra Marinelli [...] her daughter today. She is residing [facility]. She still experiences mild pain about the [...] well approximated, no surrounding erythema or drainage. [place] removed at today's office visit, Steri-Strips placed. [...] of the aforementioned history prepared by the early practice provider, and I personally performed the [...] -: [5] HIGH level documented in this encounterSumma Health [facility] Campus09-16-2025 History of Present illness Narrative* Rosario Strong RN - 07/31/2025 3:22 PM EDT Images from the original note were not included. Delisa Perkins, ALICE-BARTOLO [facility]; [facility] Cc: Casimiro Muñoz MD [...] up. Thank you. 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 History of present illness: Follow-up for [...] Hypertension Ischemic stroke (CMS/HCC) 02/2024 seen at [facility] NPH (normal pressure hydrocephalus) (CMS/HCC) PVD [...] cefuroxime cholecalciferol (vitamin D3) clopidogrel Dexcom G6 Spinner Open End muscogee Dexcom G6 Transmitter device Dexcom G7 Sensor device doxycycline ferrous sulfate FreeStyle Kartik 14 Day Plano mis FreeStyle Kartik 14 Day Sensor kit furosemide gabapentin hydroCHLOROthiazide insulin aspart insulin lispro lancets muscogee Lantus Solostar U-100 Insulin insulin pen letrozole Levemir FlexPen insulin pen lisinopril magnesium oxide melatonin capsule metoprolol tartrate mirtazapine miscellaneous medical supply muscogee mupirocin nystatin ONETOUCH ULTRA BLUE TEST STRIP [facility] OneTouch Ultra Test strip oxyBUTYnin pantoprazole pen [...] sugar diagnostic (ONETOUCH ULTRA BLUE TEST STRIP [facility]), OneTouch Ultra Blue Test Strip, Disp: [...] the morning., Disp: , Rfl: Dexcom G6 Spinner Open End misc, See administration instructions., Disp: , Rfl: [...] FreeStyle Kartik reader (FreeStyle Kartik 14 Day Plano) misc, FreeStyle Kartik 14 Day [place], Disp: , Rfl: FreeStyle Kartik sensor system (FreeStyle Kartik 14 Day Sensor) kit, FreeStyle Kartik 14 Day Sensor kit, Disp: , Rfl (more content not included)...[facility]09-16-2025 History of Present illness Narrative* Rosario Strong RN - 07/31/2025 11:23 AM EDT Images from the original note were not included. Delisa Perkins, SALES REPRESENTATIVE [employer]ATS[employer] [facility]; [facility] Cc: Casimiro Muñoz MD [...] Dr. Muñoz. 07/31/25 [place] documented in this [facility]09-12-2025 Miscellaneous Notes* Telephone Encounter - Cinda Browning RN - 07/27/2025 4:24 PM EDT Patient was discharged from the hospital to a [facility], [facility]. Called SNF on 07/26/25 and left a for a return call to get updates but none provided at this time. documented in this encounterSumma Health [facility] Campus09-12-2025 Telephone encounter Note* Telephone Encounter - Cinda Browning RN - 07/27/2025 4:24 PM EDT Patient was discharged from the hospital to a SNF, [facility]. Called SNF on 07/26/25 and left a for a return call to get updates but none provided at this time. [employer] [facility] centers[facility] Work Phone: [phone] Miscellaneous Notes* Telephone Encounter - Lashanda Ruiz - 07/25/2025 9:27 AM EDT Public Speaking Instructor called patient and spoke with daughter and she states per her mother the patient will call when ready to schedule appointment. Office number provided documented in this encounterSumma Health [facility] Campus09-10-2025 Telephone encounter Note* Telephone Encounter - Lashanda Ruiz - 07/25/2025 9:27 AM EDT Public Speaking Instructor called patient and spoke with daughter and she states per her mother the patient will call when ready to schedule appointment. Office number provided [employer] [id number] History of Present illness Narrative* Sacha Rosales, DO - 07/24/2025 11:14 PM EDT Patient Name: Cuca Dee Date of : 1945 Date of Service: 07/24/2025 Facility: [facility] Type of Visit: Skilled Visit Subjective Cuca Dee is a 80 y.o. female seen today at correction facility for skilled visit. Cuca is in [...] BY: Sacha Rosales DO documented in this encounterSumma Health [facility]ron CampusCaseRev [facility] [id number] History of Present illness Narrative* Sacha Rosales DO - 07/20/2025 3:32 PM EDT Patient Name: Cuca Dee Date of : 1945 Date of Service: 07/20/2025 Facility: [facility] Type of Visit: Skilled Visit Subjective Cuca Dee is a 80 y.o. female seen today at correction facility for skilled visit. Cuca presents back to [facility] from [facility] where she was admitted for a pathologic [...] Exam Vitals reviewed. Exam conducted with a outboard system operator present (Ludwin Joy MS3). Constitutional: General: She [...] hyperlipidemia associated with type 2 diabetes mellitus ([facility]) 4. Hypertensive heart and chronic kidney disease with heart failure and stage 1 through stage 4 chronic kidney disease, or unspecified chronic kidney disease ([facility]) She only rates her pain a 5 on scale 1-10 but had recent surgery for pathological fracture. Will try oxycodone 5mg Q6hrs prn. It is a condition that will require short-term opioids to control pain. Patient was in agreement. Continue therapy. F/U with ortho as directed. Continue other orders as before. ELECTRONICALLY SIGNED BY: Sacha Rosales DO documented in this encounterSumma Health [facility] Campus08-26-2025 History of Present illness Narrative* Sacha Rosales DO - 07/10/2025 11:59 PM EDT Patient Name: Cuca Dee Date of : 1945 Date of Service: 07/10/2025 Facility: [facility] Type of Visit: Skilled Visit Subjective Cuca Dee is a 80 y.o. female seen today at correction facility for skilled visit. She is participating [...] Exam Vitals reviewed. Exam conducted with a outboard system operator present (Ludwin Joy MS3). Constitutional: General: She [...] unspecified chronic kidney disease ([facility]) 2. Chronic obstructive pulmonary disease, unspecified COPD type ([facility]) 3. Lumbar back pain with radiculopathy affecting left lower extremity 4. Spinal stenosis of lumbar region with neurogenic claudication 5. Closed fracture of right hip, sequela 6. Rhinitis, unspecified type Continue therapy to reach maximum improvement. Will add loratadine 10mg daily. Continue other orders as before. ELECTRONICALLY SIGNED BY: Sacha Rosales DO documented in this encounterSumma Health [facility] Campus08-26-2025 History of Present illness Narrative* RONNA Barber [...] N/T. DOES NOT WAKE ATHS. RESIDENT AT [facility]. Physical Exam General Appearance: Patient appears uncomfortable [...] fracture of right hip, closed, initial encounter ([facility]) S72.141A Assessment & Plan Right hip pain [...] visit on 05/22/25 with [facility] neurosurgery to my knowledge with asking [...] requiring urgent evaluation. Visit was preformed using [employer] Co-airline pilot flight instructor speech recognition. documented in this encounterMercy Hospital St. John'[id number] History of Present illness Narrative* Sacha G Bobby, - 07/06/2025 4:24 PM EDT Patient Name: Cuca Dee Date of : 1945 Date of Service: 07/06/2025 Facility: [facility] Type of Visit: Admission H&P Subjective Cuca Dee is a 80 y.o. female seen today at correction facility for admission H&P. Cuca presents today from [facility] where she is admitted for intractable [...] Her appetite is good. She sees a puppy walker and traffic reporter for her heart failure and kidney failure issues. Past Medical History: Diagnosis Date Anemia Arthritis Asthma very mild, no inhaler use Cataract Dental disease Depression Diabetes mellitus ([facility]) Diabetes mellitus type 2, controlled ([facility]) Encephalitis Foot fracture, left GERD (gastroesophageal reflux disease) Heart murmur HLD (hyperlipidemia) Hypertension Incontinence Injury of back Insulin dependent diabetes mellitus Kidney failure STAGE 4 Lumbar spondylolysis Murmur Obesity CHELSEA (obstructive sleep apnea) no machine Peptic ulceration Peripheral vascular disease Shortness of breath Stroke ([facility]) 02/27/2024 TIA (transient ischemic attack) Upper respiratory infection UTI (urinary tract infection) Visual impairment Wears dentures Past Surgical History: Procedure Laterality Date BREAST BIOPSY Right 03/01/2023 ULT BIOPSY CATARACT EXTRACTION SECTION SECTION 03/14/1974 EGD N/A 10/17/2019 Performed by Sarai Bell DO at [facility] H-PERCUTANEOUS CORONARY INTERVENTION HYSTEROSCOPY DILATION CURETTAGE MYOSURE N/A 01/29/2021 Performed by Jv Briones MD at [facility] INJECTION BLOCK EPIDURAL CAUDAL STEROID N/A 08/14/2022 Performed by Arnulfo Morgan MD at [facility] INJECTION BLOCK EPIDURAL CAUDAL STEROID N/A 06/06/2021 Performed by Arnulfo Morgan MD at [facility] INJECTION BLOCK EPIDURAL CAUDAL STEROID N/A 04/25/2021 Performed by Arnulfo Morgan MD at [facility] INJECTION CAUDAL EPIDURAL WITH CATHETER, STEROID N/A 05/03/2020 Performed by Arnulfo Morgan MD at [facility] INJECTION CAUDAL EPIDURAL WITH CATHETER, STEROID N/A 11/24/2019 Performed by Arnulfo Morgan MD at [facility] INJECTION CAUDAL EPIDURAL WITH CATHETER, STEROID N/A 04/21/2019 Performed by Arnulfo Morgan MD at [facility] INJECTION MEDIAL BRANCH NERVE BLOCK Bilateral L 4/5, 5/1 Bilateral 08/18/2019 Performed by Arnulfo Morgan MD at [facility] INJECTION MEDIAL BRANCH NERVE BLOCK Bilateral L 4/5, 5/1 Bilateral 06/23/2019 Performed by Arnulfo Morgan MD at [facility] INJECTION STEROID EPI 1 WITH SEDATION Right L 4, 5 NR Right 03/17/2019 Performed by Arnulfo Morgan MD at [facility] INJECTION STEROID EPI 1 WITH SEDATION: right L45 nroot Right 08/15/2018 Performed by Arnulfo Morgan MD at [facility] LEFT L4, AND 5 NERVE ROOT INJECTION 2 OF 2 Left 07/22/2018 Performed by Arnulfo Morgan MD at [facility] LEFT L4, AND L5 NERVE ROOT 1 OF 2 Left 07/04/2018 Performed by Arnulfo Morgan MD at [facility] SHUNT INSERTION TONSILLECTOMY AGE 4 Transcutaneous aortic valve replacement/Transfemoral/Kwan N/A 08/17/2023 Performed by Chava Norris MD at [facility] Valvuloplasty aortic N/A 06/03/2023 Performed by Chava Norris MD at [facility] Family History Problem Relation [...] infection without hematuria, site unspecified Admit to [facility]. Therapy evaluation with OT and PT. Continue medications from the hospital. Full code. Good rehab potential. Plan to go home when able to take care of self and do ADLs. ELECTRONICALLY SIGNED BY: Sacha Rosales DO documented in this encounterSumma Health [facility] Campus08-21-2025 Nurse Note* Tanya Rodriguez RN - 07/05/2025 6:34 PM EDT Patient discharged to snf with [facility] transport and all belongings and medications. Patient denies any complaints of chest pain/tightness, dizziness, nausea, vomiting. Daughter notified of departure. Attempted to call snf to notifiy of patient's departure-no answer. Crf faxed and report called. [facility]08-21-2025 Nurse Note* Tanya Rodriguez RN - 07/05/2025 [...] to have pulled out IV and telemetry. Public Speaking Instructor completed adl's. Patient refused to replace another IV and/ lunch. Jazmine Do CNP advised and see new order. documented in this encounterSumma Health [facility] Campus08-21-2025 Plan of care note * Plan of Care - Tanya Rodriguez RN - 07/05/2025 6:33 PM EDT Problem: Pain Goal: Patient goal is pain score less than 4, able to rest, and participant in treatment plan as appropriate Description: INTERVENTIONS: 1. Encourage patient or legal hardware supplies sales representative to report early pain and ask [...] per policy 9. Teach patient or legal hardware supplies sales representative interventions for comforting Outcome: Completed Note: [...] at the bedside 7. Instruct patient/ patient hardware supplies sales representative about use of safety devices 8. Include patient/ patient hardware supplies sales representative in decisions related to safety Outcome: [...] hygiene technique. 7. Identify and instruct patient/patient hardware supplies sales representative in use of appropriate isolation precautionsfor identified infection/symptoms. 8. Provide and discuss with patient/patient hardware supplies sales representative on educational MDRO sheet. 9. Encourage and monitor nutritional status daily and consult hospital superintendent if indicated. 10. Implement neutropenic guidelines as needed. Outcome: Completed Note: Evaluation of progress towards goal: Patient discharged to SNF Problem: Knowledge Deficit Goal: Patient/patient hardware supplies sales representative demonstrates understanding of disease process, treatment [...] Collaborate with ancillary departments 14. Include patient/patient hardware supplies sales representative in decisions related to anxiety Outcome: [...] providing care 6. Collaborate with pastoral/spiritual care, public health social worker, mental health counselor as needed. 7. Instruct patient on diversional activities such as physical activity, distraction, and deep breathing exercises to assist with coping 8. Involve patient's hardware supplies sales representative in care Outcome: Completed Note: Evaluation [...] discharge planning process 5. Communicate referral to asthma educator as appropriate 6. Communicate referral to hospital superintendent as appropriate 7. Collaborate with case management/public health social worker for discharge needs Outcome: Completed Note: Evaluation [...] supplement as ordered 13. Collaborate with clinical hospital superintendent 14. Include patient/ patient's hardware supplies sales representative in decisions related to nutrition Outcome: [...] Score of =/> 25 or indicated by [facility] Re[facility] Assessment Goal: Patient should be free from fall Description: Interventions: 1. [place] to environment 2. Hourly rounds addressing the [...] non-skid footwear 11. Teach patient and patient hardware supplies sales representative to maintain environment for safety and [...] (cane, walker) within reach 19. Request patient hardware supplies sales representative bring adaptive equipment/mobility aids from home or obtain and provide as needed 20. Consult pharmacy regarding effects of med's affecting mobility, cognition, and alternatives 21. Obtain physician order for PT if risk factors associated with mobility are present 22. Obtain physician order for OT as appropriate 23. Utilize diversional activities 24. Educate patient and patient hardware supplies sales representative how to maintain a safe environment during visitationtimes (notify nurse prior to leaving bedside) 25. Consider appropriateness of medical or non-medical billing representative 26. Set up voiding schedule as appropriate [...] to next level of care provider (care center manager, PCP, home care). 5. Complete follow up [...] progress towards goal: Patient discharged to SNF [facility]08-21-2025 Miscellaneous Notes* Plan of Care - Tanya Rodriguez RN - 07/05/2025 6:33 PM EDT Problem: Pain Goal: Patient goal is pain score less than 4, able to rest, and participant in treatment plan as appropriate Description: INTERVENTIONS: 1. Encourage patient or legal hardware supplies sales representative to report early pain and ask [...] per policy 9. Teach patient or legal hardware supplies sales representative interventions for comforting Outcome: Completed Note: [...] at the bedside 7. Instruct patient/ patient hardware supplies sales representative about use of safety devices 8. Include patient/ patient hardware supplies sales representative in decisions related to safety Outcome: [...] hygiene technique. 7. Identify and instruct patient/patient hardware supplies sales representative in use of appropriate isolation precautionsfor identified infection/symptoms. 8. Provide and discuss with patient/patient hardware supplies sales representative on educational MDRO sheet. 9. Encourage and monitor nutritional status daily and consult hospital superintendent if indicated. 10. Implement neutropenic guidelines as needed. Outcome: Completed Note: Evaluation of progress towards goal: Patient discharged to SNF Problem: Knowledge Deficit Goal: Patient/patient hardware supplies sales representative demonstrates understanding of disease process, treatment [...] Collaborate with ancillary departments 14. Include patient/patient hardware supplies sales representative in decisions related to anxiety Outcome: [...] providing care 6. Collaborate with pastoral/spiritual care, public health social worker, mental health counselor as needed. 7. Instruct patient on diversional activities such as physical activity, distraction, and deep breathing exercises to assist with coping 8. Involve patient's hardware supplies sales representative in care Outcome: Completed Note: Evaluation [...] discharge planning process 5. Communicate referral to asthma educator as appropriate 6. Communicate referral to hospital superintendent as appropriate 7. Collaborate with case management/public health social worker for discharge needs Outcome: Completed Note: Evaluation [...] supplement as ordered 13. Collaborate with clinical hospital superintendent 14. Include patient/ patient's hardware supplies sales representative in decisions related to nutrition Outcome: [...] be free from fall Description: Interventions: 1. [place] to environment 2. Hourly rounds addressing the [...] non-skid footwear 11. Teach patient and patient hardware supplies sales representative to maintain environment for safety and [...] (cane, walker) within reach 19. Request patient hardware supplies sales representative bring adaptive equipment/mobility aids from home or obtain and provide as needed 20. Consult pharmacy regarding effects of med's affecting mobility, cognition, and alternatives 21. Obtain physician order for PT if risk factors associated with mobility are present 22. Obtain physician order for OT as appropriate 23. Utilize diversional activities 24. Educate patient and patient hardware supplies sales representative how to maintain a safe environment during visitationtimes (notify nurse prior to leaving bedside) 25. Consider appropriateness of medical or non-medical billing representative 26. Set up voiding schedule as appropriate [...] to next level of care provider (care center manager, PCP, home care). 5. Complete follow up [...] transport with [facility] confirmed via PTN to [facility] at 1800 * Discharge Planning Note - Bethany Lucero RN - 07/05/2025 10:28 AM EDT 07/05/25 1028 Services Requested Patient expects to be discharged to: SNF [facility]charge Disposition [facility] [address] [facility] [id number] extension [facility]0 Fax SNF Accepted? Yes Transportation Arranged Ambulance Patient choice offered Yes List Provided Yes [facility] List Provided [facility] DC Planning Complete Discharge Milestones Yes DISCHARGE PLANNING NOTE Discharge plan: Discharge orders noted. Transportation arranged for 2pm garbage pick up man. [facility] updated on transport time. CRF and 7000 sent via [employer]. - Bethany Lucero RN 07/05/25 10:29 AM * Plan of Care - Kristy Galarza RN - 07/04/2025 10:00 PM EDT Problem: Pain Goal: Patient goal is pain score less than 4, able to rest, and participant in treatment plan as appropriate Description: INTERVENTIONS: 1. Encourage patient or legal hardware supplies sales representative to report early pain and ask [...] per policy 9. Teach patient or legal hardware supplies sales representative interventions for comforting Outcome: Progressing Note: [...] at the bedside 7. Instruct patient/ patient hardware supplies sales representative about use of safety devices 8. Include patient/ patient hardware supplies sales representative in decisions related to safety Outcome: [...] hygiene technique. 7. Identify and instruct patient/patient hardware supplies sales representative in use of appropriate isolation precautionsfor identified infection/symptoms. 8. Provide and discuss with patient/patient hardware supplies sales representative on educational MDRO sheet. 9. Encourage and monitor nutritional status daily and consult hospital superintendent if indicated. 10. Implement neutropenic guidelines as needed. Outcome: Progressing Note: Evaluation of progress towards goal: Patient VS WNL, remains afebrile for shift. Continue to monitor. Problem: Knowledge Deficit Goal: Patient/patient hardware supplies sales representative demonstrates understanding of disease process, treatment [...] Collaborate with ancillary departments 14. Include patient/patient hardware supplies sales representative in decisions related to anxiety Outcome: [...] providing care 6. Collaborate with pastoral/spiritual care, public health social worker, mental health counselor as needed. 7. Instruct patient on diversional activities such as physical activity, distraction, and deep breathing exercises to assist with coping 8. Involve patient's hardware supplies sales representative in care Outcome: Progressing Note: Evaluation [...] discharge planning process 5. Communicate referral to asthma educator as appropriate 6. Communicate referral to hospital superintendent as appropriate 7. Collaborate with case management/public health social worker for discharge needs Outcome: Progressing Note: Evaluation [...] supplement as ordered 13. Collaborate with clinical hospital superintendent 14. Include patient/ patient's hardware supplies sales representative in decisions related to nutrition Outcome: [...] Score of =/> 25 or indicated by [facility] Assessment Goal: Patient should be free from fall Description: Interventions: 1. [place] to environment 2. Hourly rounds addressing the [...] non-skid footwear 11. Teach patient and patient hardware supplies sales representative to maintain environment for safety and [...] (cane, walker) within reach 19. Request patient hardware supplies sales representative bring adaptive equipment/mobility aids from home or obtain and provide as needed 20. Consult pharmacy regarding effects of med's affecting mobility, cognition, and alternatives 21. Obtain physician order for PT if risk factors associated with mobility are present 22. Obtain physician order for OT as appropriate 23. Utilize diversional activities 24. Educate patient and patient hardware supplies sales representative how to maintain a safe environment during visitationtimes (notify nurse prior to leaving bedside) 25. Consider appropriateness of medical or non-medical billing representative 26. Set up voiding schedule as appropriate [...] to next level of care provider (care center manager, PCP, home care). 5. Complete follow up [...] Lee Gambino P# ; F# Approval # [id number] Valid for Dates: 07/04/25 - 07/10/25 * Discharge Planning Note - Jeannie Paris - 07/04/2025 1:42 PM EDT DISCHARGE PLANNING NOTE Prior auth submitted to: [employer] Via: [employer] On behalf of : Lee Gambino P# ; F# REF# [id number] * Discharge Planning Note - Bethany Lucero [...] discharge planning Discharge Disposition SNF SNF Name [facility] ([facility]) [phone] Fax SNF Accepted? -- [referral sent] Does the patient need discharge transportation arranged? Yes Transportation Arranged Ambulance DC Planning Complete Discharge Milestones Yes Respiratory Indicator Does the patient currently have home respiratory equipment? No Will the patient need home respiratory equipment upon discharge? No, it is expected that patient will NOT discharge home with respiratory DME needs Discharge plan: [facility] SNF vs Home with [facility] (resume services) [facility] to perform on-site this morning. CN called and left a voicemail for admissions to confirm if onsite was completed/if patient can be accepted. [place] pending bed availability.Once accepting facility established, will start insurance auth. - Bethany Lucero RN 07/04/25 12:28 PM Update: CN spoke with [facility] admissions, they have accepted patient, ok to start precert. Cn called patient's daughter Ileana, agreeable with plan of care. [facility] tasked to start insurance auth for [facility]. - Bethany Lucero RN 07/04/25 1:29 PM * PT/OT/TRANSPORTATION ASSOCIATE - José Luis Cheng, PT - 07/04/2025 9:50 AM EDT Physical Therapy Reason For Patient Refusal (comment required): (P) Pain (Pt c/o back pain and requesting to defer therapy until she has her SNF consult today. Will check back later with pt) * PT/OT/TRANSPORTATION ASSOCIATE - DANDRE Escobar/Trice - 07/04/2025 9:49 AM [...] stating she wants to talk to the senior living rep. When they get here and then [...] Description: INTERVENTIONS: 1. Encourage patient or legal hardware supplies sales representative to report early pain and ask [...] per policy 9. Teach patient or legal hardware supplies sales representative interventions for comforting Note: Evaluation of [...] at the bedside 7. Instruct patient/ patient hardware supplies sales representative about use of safety devices 8. Include patient/ patient hardware supplies sales representative in decisions related to safety Note: Evaluation of progress towards goal: safety precautions in place. * Plan of Care - Kristy Galarza RN - 07/03/2025 8:58 PM EDT Problem: Pain Goal: Patient goal is pain score less than 4, able to rest, and participant in treatment plan as appropriate Description: INTERVENTIONS: 1. Encourage patient or legal hardware supplies sales representative to report early pain and ask [...] per policy 9. Teach patient or legal hardware supplies sales representative interventions for comforting Outcome: Progressing Note: [...] at the bedside 7. Instruct patient/ patient hardware supplies sales representative about use of safety devices 8. Include patient/ patient hardware supplies sales representative in decisions related to safety Outcome: [...] hygiene technique. 7. Identify and instruct patient/patient hardware supplies sales representative in use of appropriate isolation precautionsfor identified infection/symptoms. 8. Provide and discuss with patient/patient hardware supplies sales representative on educational MDRO sheet. 9. Encourage and monitor nutritional status daily and consult hospital superintendent if indicated. 10. Implement neutropenic guidelines as needed. Outcome: Progressing Note: Evaluation of progress towards goal: Patient VS WNL, remains afebrile for shift. Continue to monitor. Problem: Knowledge Deficit Goal: Patient/patient hardware supplies sales representative demonstrates understanding of disease process, treatment [...] Collaborate with ancillary departments 14. Include patient/patient hardware supplies sales representative in decisions related to anxiety Outcome: [...] providing care 6. Collaborate with pastoral/spiritual care, public health social worker, mental health counselor as needed. 7. Instruct patient on diversional activities such as physical activity, distraction, and deep breathing exercises to assist with coping 8. Involve patient's hardware supplies sales representative in care Outcome: Progressing Note: Evaluation [...] discharge planning process 5. Communicate referral to asthma educator as appropriate 6. Communicate referral to hospital superintendent as appropriate 7. Collaborate with case management/public health social worker for discharge needs Outcome: Progressing Note: Evaluation [...] supplement as ordered 13. Collaborate with clinical hospital superintendent 14. Include patient/ patient's hardware supplies sales representative in decisions related to nutrition Outcome: [...] be free from fall Description: Interventions: 1. [place] to environment 2. Hourly rounds addressing the [...] non-skid footwear 11. Teach patient and patient hardware supplies sales representative to maintain environment for safety and [...] (cane, walker) within reach 19. Request patient hardware supplies sales representative bring adaptive equipment/mobility aids from home or obtain and provide as needed 20. Consult pharmacy regarding effects of med's affecting mobility, cognition, and alternatives 21. Obtain physician order for PT if risk factors associated with mobility are present 22. Obtain physician order for OT as appropriate 23. Utilize diversional activities 24. Educate patient and patient hardware supplies sales representative how to maintain a safe environment during visitationtimes (notify nurse prior to leaving bedside) 25. Consider appropriateness of medical or non-medical billing representative 26. Set up voiding schedule as appropriate [...] to next level of care provider (care center manager, PCP, home care). 5. Complete follow up [...] Continue to assess for when appropriate. * PT/OT/TRANSPORTATION ASSOCIATE - Dania Arteaga, OTR/L - 07/03/2025 1:39 [...] status/safety, Fall risk, ADL status, Endurance level Prop And Effects Designer Support for-: Mobility Deficits, ADL Deficits Therapy Plan Need for skilled Occupational Therapy to address deficits in ADL independence and functional mobility due to a status decline resulting from weakness. Past Medical History: Diagnosis Date Anemia Arthritis Asthma very mild, no inhaler use Cataract Dental disease Depression Diabetes mellitus ([facility]) Diabetes mellitus type 2, controlled ([facility]) Encephalitis Foot fracture, left GERD (gastroesophageal reflux disease) Heart murmur HLD (hyperlipidemia) Hypertension Incontinence Injury of back Insulin dependent diabetes mellitus Kidney failure STAGE 4 Lumbar spondylolysis Murmur Obesity CHELSEA (obstructive sleep apnea) no machine Peptic ulceration Peripheral vascular disease Shortness of breath Stroke ([facility]) 02/27/2024 TIA (transient ischemic attack) Upper respiratory infection UTI (urinary tract infection) Visual impairment Wears dentures Past Surgical History: Procedure Laterality Date BREAST BIOPSY Right 03/01/2023 ULT BIOPSY CATARACT EXTRACTION SECTION SECTION 03/14/1974 EGD N/A 10/17/2019 Performed by Sarai Bell DO at [facility] H-PERCUTANEOUS CORONARY INTERVENTION HYSTEROSCOPY DILATION CURETTAGE MYOSURE N/A 01/29/2021 Performed by Jv Briones MD at [facility] INJECTION BLOCK EPIDURAL CAUDAL STEROID N/A 08/14/2022 Performed by Arnulfo Morgan MD at [facility] INJECTION BLOCK EPIDURAL CAUDAL STEROID N/A 06/06/2021 Performed by Arnulfo Morgan MD at [facility] INJECTION BLOCK EPIDURAL CAUDAL STEROID N/A 04/25/2021 Performed by Arnulfo Morgan MD at [facility] INJECTION CAUDAL EPIDURAL WITH CATHETER, STEROID N/A 05/03/2020 Performed by Arnulfo Morgan MD at [facility] INJECTION CAUDAL EPIDURAL WITH CATHETER, STEROID N/A 11/24/2019 Performed by Arnulfo Morgan MD at [facility] INJECTION CAUDAL EPIDURAL WITH CATHETER, STEROID N/A 04/21/2019 Performed by Arnulfo Morgan MD at [facility] NERVE BLOCK Bilateral L 4/5, 5/1 Bilateral 08/18/2019 Performed by Arnulfo Morgan MD at [facility] INJECTION MEDIAL BRANCH NERVE BLOCK Bilateral L 4/5, 5/1 Bilateral 06/23/2019 Performed by Arnulfo Morgan MD at [facility] INJECTION STEROID EPI 1 WITH SEDATION Right L 4, 5 NR Right 03/17/2019 Performed by Arnulfo Morgan MD at [facility] INJECTION STEROID EPI 1 WITH SEDATION: right L45 nroot Right 08/15/2018 Performed by Arnulfo Morgan MD at [facility] LEFT L4, AND 5 NERVE ROOT INJECTION 2 OF 2 Left 07/22/2018 Performed by Arnulfo Morgan MD at [facility] LEFT L4, AND L5 NERVE ROOT 1 OF 2 Left 07/04/2018 Performed by Arnulfo Morgan MD at [facility] SHUNT INSERTION TONSILLECTOMY AGE 4 Transcutaneous aortic valve replacement/Transfemoral/Kwan N/A 08/17/2023 Performed by Chava Norris MD at [facility] Valvuloplasty aortic N/A 06/03/2023 Performed by Chava Norris MD at [facility] 6 Clicks: Daily Activity [...] socks, gait belt Weight Bearing Status: FWB Telemetry/Glucose And Syrup Weigher: Yes Oxygen Used: Room air Other: Fall [...] 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 mellitus ([facility]) Chronic diastolic congestive heart failure ([facility]) Weakness Iron deficiency anemia * PT/OT/TRANSPORTATION ASSOCIATE - Dominique Chris, PT - 07/03/2025 12:43 [...] status/safety, Fall risk, ADL status, Endurance level Prop And Effects Designer Support for-: Mobility Deficits, ADL Deficits Therapy Plan Need for skilled Physical Therapy to address deficits in functional mobility due to a status decline resulting from generalized weakness/decreased activity macario d/t intractable n/v. Past Medical History: Diagnosis Date Anemia Arthritis Asthma very mild, no inhaler use Cataract Dental disease Depression Diabetes mellitus ([facility]) Diabetes mellitus type 2, controlled ([facility]) Encephalitis Foot fracture, left GERD (gastroesophageal reflux disease) Heart murmur HLD (hyperlipidemia) Hypertension Incontinence Injury of back Insulin dependent diabetes mellitus Kidney failure STAGE 4 Lumbar spondylolysis Murmur Obesity CHELSEA (obstructive sleep apnea) no machine Peptic ulceration Peripheral vascular disease Shortness of breath Stroke ([facility]) 02/27/2024 TIA (transient ischemic attack) Upper respiratory infection UTI (urinary tract infection) Visual impairment Wears dentures Past Surgical History: Procedure Laterality Date BREAST BIOPSY Right 03/01/2023 ULT BIOPSY CATARACT EXTRACTION SECTION SECTION 03/14/1974 EGD N/A 10/17/2019 Performed by Sarai Bell DO at [facility] H-PERCUTANEOUS CORONARY INTERVENTION HYSTEROSCOPY DILATION CURETTAGE MYOSURE N/A 01/29/2021 Performed by Jv Briones MD at [facility] INJECTION BLOCK EPIDURAL CAUDAL STEROID N/A 08/14/2022 Performed by Arnulfo Morgan MD at [facility] INJECTION BLOCK EPIDURAL CAUDAL STEROID N/A 06/06/2021 Performed by Arnulfo Morgan MD at [facility] INJECTION BLOCK EPIDURAL CAUDAL STEROID N/A 04/25/2021 Performed by Arnulfo Morgan MD at [facility] INJECTION CAUDAL EPIDURAL WITH CATHETER, STEROID N/A 05/03/2020 Performed by Arnulfo Morgan MD at [facility] INJECTION CAUDAL EPIDURAL WITH CATHETER, STEROID N/A 11/24/2019 Performed by Arnulfo Morgan MD at [facility] INJECTION CAUDAL EPIDURAL WITH CATHETER, STEROID N/A 04/21/2019 Performed by Arnulfo Morgan MD at [facility] NERVE BLOCK Bilateral L 4/5, 5/1 Bilateral 08/18/2019 Performed by Arnulfo Morgan MD at [facility] INJECTION MEDIAL BRANCH NERVE BLOCK Bilateral L 4/5, 5/1 Bilateral 06/23/2019 Performed by Arnulfo Morgan MD at [facility] INJECTION STEROID EPI 1 WITH SEDATION Right L 4, 5 NR Right 03/17/2019 Performed by Arnulfo Morgan MD at [facility] INJECTION STEROID EPI 1 WITH SEDATION: right L45 nroot Right 08/15/2018 Performed by Arnulfo Morgan MD at [facility] LEFT L4, AND 5 NERVE ROOT INJECTION 2 OF 2 Left 07/22/2018 Performed by Arnulfo Morgan MD at [facility] LEFT L4, AND L5 NERVE ROOT 1 OF 2 Left 07/04/2018 Performed by Arnulfo Morgan MD at [facility] SHUNT INSERTION TONSILLECTOMY AGE 4 Transcutaneous aortic valve replacement/Transfemoral/Kwan N/A 08/17/2023 Performed by Chava Norris MD at [facility] Valvuloplasty aortic N/A 06/03/2023 Performed by Chava Norris MD at [facility] 6 Clicks: Basic Mobility [...] socks, gait belt Weight Bearing Status: FWB Telemetry/Glucose And Syrup Weigher: Yes Oxygen Used: Room air Other: Fall [...] mellitus (CMS-HCC) Chronic diastolic congestive heart failure ([facility]) Weakness Iron deficiency anemia * Discharge Planning Note - Bethany Lucero RN - 07/03/2025 10:52 AM EDT 07/03/25 8902 Patient Information Initial Pre-Hospitalization Assessment Completed? Completed [...] No Caregiver Needed Patient/Caregiver Goals Patient/Caregiver Goals [facility] (Short Term) Services Requested Patient expects to be discharged to: SNF Does the patient wish to have family/friend/caregiver involved in their discharge planning? No, thepatient does not wish to have family/friend/caregiver involved in their discharge planning Discharge Disposition [facility] SNF Name [facility] ([facility]) [phone] Fax SNF Accepted? (referral sent) Does the patient need discharge transportation arranged? Yes Transportation Arranged Ambulance DC Planning Complete Discharge Milestones Yes DISCHARGE PLANNING NOTE CN met with patient at bedside. CN discussed therapy recommendations and recent hospital admission.Patient agreeable for SNF referral be sent to [facility] only. If [facility] unable to accept, patient would like to return home with [facility]. Patient is current with [facility]. Referral sent to [facility] and [facility]. Discharge plan: [facility] SNF vs Home with [facility] (resume services) [facility] declined due to bed availability. Patient gave CN [place] as 2nd choice, reviewing/pending bed availability. Daughter at bedside, 2 more choices given. Referrals sent to [facility] and [facility]. - Bethany Lucero RN 07/03/25 1:47 PM * Plan of Care - Cesilia Hand RN - 07/03/2025 7:56 AM EDT Problem: Pain Goal: Patient goal is pain score less than 4, able to rest, and participant in treatment plan as appropriate Description: INTERVENTIONS: 1. Encourage patient or legal hardware supplies sales representative to report early pain and ask [...] per policy 9. Teach patient or legal hardware supplies sales representative interventions for comforting Note: Evaluation of [...] at the bedside 7. Instruct patient/ patient hardware supplies sales representative about use of safety devices 8. Include patient/ patient hardware supplies sales representative in decisions related to safety Note: [...] hygiene technique. 7. Identify and instruct patient/patient hardware supplies sales representative in use of appropriate isolation precautionsfor identified infection/symptoms. 8. Provide and discuss with patient/patient hardware supplies sales representative on educational MDRO sheet. 9. Encourage and monitor nutritional status daily and consult hospital superintendent if indicated. 10. Implement neutropenic guidelines as needed. Note: Evaluation of progress towards goal: Standard precautions in place. Problem: Knowledge Deficit Goal: Patient/patient hardware supplies sales representative demonstrates understanding of disease process, treatment [...] Collaborate with ancillary departments 14. Include patient/patient hardware supplies sales representative in decisions related to anxiety Note: [...] providing care 6. Collaborate with pastoral/spiritual care, public health social worker, mental health counselor as needed. 7. Instruct patient on diversional activities such as physical activity, distraction, and deep breathing exercises to assist with coping 8. Involve patient's hardware supplies sales representative in care Note: Evaluation of progress [...] discharge planning process 5. Communicate referral to asthma educator as appropriate 6. Communicate referral to hospital superintendent as appropriate 7. Collaborate with case management/public health social worker for discharge needs Note: Evaluation of progress [...] supplement as ordered 13. Collaborate with clinical hospital superintendent 14. Include patient/ patient's hardware supplies sales representative in decisions related to nutrition Note: [...] Description: INTERVENTIONS: 1. Encourage patient or legal hardware supplies sales representative to report early pain and ask [...] per policy 9. Teach patient or legal hardware supplies sales representative interventions for comforting Outcome: Progressing Note: [...] at the bedside 7. Instruct patient/ patient hardware supplies sales representative about use of safety devices 8. Include patient/ patient hardware supplies sales representative in decisions related to safety Outcome: [...] hygiene technique. 7. Identify and instruct patient/patient hardware supplies sales representative in use of appropriate isolation precautionsfor identified infection/symptoms. 8. Provide and discuss with patient/patient hardware supplies sales representative on educational MDRO sheet. 9. Encourage and monitor nutritional status daily and consult hospital superintendent if indicated. 10. Implement neutropenic guidelines as needed. Outcome: Progressing Note: Evaluation of progress towards goal: Patient VS WNL, remains afebrile for shift. Continue to monitor. Problem: Knowledge Deficit Goal: Patient/patient hardware supplies sales representative demonstrates understanding of disease process, treatment [...] Collaborate with ancillary departments 14. Include patient/patient hardware supplies sales representative in decisions related to anxiety Outcome: [...] providing care 6. Collaborate with pastoral/spiritual care, public health social worker, mental health counselor as needed. 7. Instruct patient on diversional activities such as physical activity, distraction, and deep breathing exercises to assist with coping 8. Involve patient's hardware supplies sales representative in care Outcome: Progressing Note: Evaluation [...] discharge planning process 5. Communicate referral to asthma educator as appropriate 6. Communicate referral to hospital superintendent as appropriate 7. Collaborate with case management/public health social worker for discharge needs Outcome: Progressing Note: Evaluation [...] supplement as ordered 13. Collaborate with clinical hospital superintendent 14. Include patient/ patient's hardware supplies sales representative in decisions related to nutrition Outcome: [...] as needed, labs monitored. documented in this encounter[facility] Progress note* Discharge Planning Note - Kong Spivey - 07/05/2025 4:26 PM EDT DISCHARGE PLANNING NOTE BLS transport with [facility] confirmed via PTN to [facility] 07.05.25 at 1800 [facility]08-21[facility]2025 Progress note* Discharge Planning Note - Bethany Lucero RN - 07/05/2025 10:28 AM EDT 07/05/25 1028 Services Requested Patient expects to be discharged to: SNF Discharge Disposition SNF SNF Name [address] [phone] extension [phone] Fax SNF Accepted? Yes Transportation Arranged Ambulance Patient choice offered Yes List Provided Yes [facility] List Provided [facility] Facility DC Planning Complete Discharge Milestones Yes DISCHARGE PLANNING NOTE Discharge plan: Discharge orders noted. Transportation arranged for 2pm garbage pick up man. Lior updated on transport time. CRF and 7000 sent via [employer]. - Bethany Lucero RN 07/05/25 10:29 AM [facility]08-21-2025 Miscellaneous Notes* Telephone Encounter - Lashanda Ruiz - 07/05/2025 10:12 AM EDT Public Speaking Instructor spoke with patient's daughter to schedule a new Patient appointment. She states she will call back to schedule. Looking to get a second opinion. Office number provided documented in this encounterSum[facility]08-21-2025 Telephone encounter Note* Telephone Encounter - Lashanda Ruiz - 07/05/2025 10:12 AM EDT Public Speaking Instructor spoke with patient's daughter to schedule a new Patient appointment. She states she will call back to schedule. Looking to get a second opinion. Office number provided [facility]08-[facility] Hospital course Narrative* Felix Hallman MD - 07/05/2025 6:54 AM EDT Images from the original note were not included. [facility] INTERNAL MEDICINE [facility] - [address] MED [address] [place] [phone] Hospital Medicine Discharge Summary Patient: Cuca Dee Date of : 1945 Room: [facility] Encounter date: 07/05/25 Hospital Day: 4 DATE OF ADMISSION: 07/02/2025 DATE OF DISCHARGE:07/05/2025 DISCHARGE DIAGNOSES Principal Problem: Intractable nausea and vomiting Active Problems: 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 mellitus ([facility]) Chronic diastolic congestive heart failure ([facility]) Weakness Iron deficiency anemia Adnexal mass CONSULTANTS None PCP: Vj Gray, SALES REPRESENTATIVE [employer] PROCEDURES None HOSPITAL COURSE SUMMARY Ms. Cuca Dee is a pleasant 80-year-old female who came from [facility] they did not haveany open beds [...] was negative PT and OT seen recommend correction facility. Patient was given 1 day of IV fluids did cover for UTI with Rocephin since urine culture was negative did initially have on clear liquids advance diet as tolerated. Electrolytes were replaced. 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 DISCHARGE INSTRUCTION Disposition: retirement facility Condition:Stable Activity: activity as tolerated Diet: [...] Your Medications These medications were sent to [id number] - [facility] [address] [place] [address] [phone] insulin glargine 100 unit/mL (3 mL) insulin [...] discharged in stable condition. Follow up with stock plan administrator Onc as outpatient for left adnexal mass. documented in this encounterSumma [facility]08-20-2025 Plan of care note * Plan of Care - Kristy Galarza RN - 07/04/2025 10:00 PM EDT Problem: Pain Goal: Patient goal is pain score less than 4, able to rest, and participant in treatment plan as appropriate Description: INTERVENTIONS: 1. Encourage patient or legal hardware supplies sales representative to report early pain and ask [...] per policy 9. Teach patient or legal hardware supplies sales representative interventions for comforting Outcome: Progressing Note: [...] at the bedside 7. Instruct patient/ patient hardware supplies sales representative about use of safety devices 8. Include patient/ patient hardware supplies sales representative in decisions related to safety Outcome: [...] hygiene technique. 7. Identify and instruct patient/patient hardware supplies sales representative in use of appropriate isolation precautionsfor identified infection/symptoms. 8. Provide and discuss with patient/patient hardware supplies sales representative on educational MDRO sheet. 9. Encourage and monitor nutritional status daily and consult hospital superintendent if indicated. 10. Implement neutropenic guidelines as needed. Outcome: Progressing Note: Evaluation of progress towards goal: Patient VS WNL, remains afebrile for shift. Continue to monitor. Problem: Knowledge Deficit Goal: Patient/patient hardware supplies sales representative demonstrates understanding of disease process, treatment [...] Collaborate with ancillary departments 14. Include patient/patient hardware supplies sales representative in decisions related to anxiety Outcome: [...] providing care 6. Collaborate with pastoral/spiritual care, public health social worker, mental health counselor as needed. 7. Instruct patient on diversional activities such as physical activity, distraction, and deep breathing exercises to assist with coping 8. Involve patient's hardware supplies sales representative in care Outcome: Progressing Note: Evaluation [...] discharge planning process 5. Communicate referral to asthma educator as appropriate 6. Communicate referral to hospital superintendent as appropriate 7. Collaborate with case management/public health social worker for discharge needs Outcome: Progressing Note: Evaluation [...] supplement as ordered 13. Collaborate with clinical hospital superintendent 14. Include patient/ patient's hardware supplies sales representative in decisions related to nutrition Outcome: [...] be free from fall Description: Interventions: 1. [place] to environment 2. Hourly rounds addressing the [...] non-skid footwear 11. Teach patient and patient hardware supplies sales representative to maintain environment for safety and [...] (cane, walker) within reach 19. Request patient hardware supplies sales representative bring adaptive equipment/mobility aids from home or obtain and provide as needed 20. Consult pharmacy regarding effects of med's affecting mobility, cognition, and alternatives 21. Obtain physician order for PT if risk factors associated with mobility are present 22. Obtain physician order for OT as appropriate 23. Utilize diversional activities 24. Educate patient and patient hardware supplies sales representative how to maintain a safe environment during visitationtimes (notify nurse prior to leaving bedside) 25. Consider appropriateness of medical or non-medical billing representative 26. Set up voiding schedule as appropriate [...] to next level of care provider (care center manager, PCP, home care). 5. Complete follow up [...] goal: Continue to assess for when appropriate. [facility] [id number] Progress note* Discharge Planning Note - Jeannie Paris - 07/04/2025 3:59 PM EDT DISCHARGE PLANNING NOTE Prior Auth approved for admission to : Lee Gambino P# ; F# Approval # [id number] Valid for Dates: 07/04/25 - 07/10/25 [facility] [id number] Progress note* Discharge Planning Note - Jeannie Paris - 07/04/2025 1:42 PM EDT DISCHARGE PLANNING NOTE Prior auth submitted to: [employer] Via: [employer] On behalf of : Lee Gambino P# ; F# REF# [id number] [facility] [id number] Nurse Note* Cesilia Hand RN - 07/04/2025 1:00 PM EDT Patient noted to have pulled out IV and telemetry. Public Speaking Instructor completed adl's. Patient refused to replace another IV and/ lunch. Jazmine Do CNP advised and see new order. [facility] [id number] Progress note* Discharge Planning Note - Bethany [...] discharge planning Discharge Disposition SNF SNF Name [facility] [phone] Fax SNF Accepted? -- [referral sent] Does the patient need discharge transportation arranged? Yes Transportation Arranged Ambulance DC Planning Complete Discharge Milestones Yes Respiratory Indicator Does the patient currently have home respiratory equipment? No Will the patient need home respiratory equipment upon discharge? No, it is expected that patient will NOT discharge home with respiratory DME needs Discharge plan: [facility] vs Home with [facility] (resume services) [facility] to perform on-site this morning. CN called and left a voicemail for admissions to confirm if onsite was completed/if patient can be accepted. [place] pending bed availability.Once accepting facility established, will start insurance auth. - Bethany Lucero RN 07/04/25 12:28 PM Update: CN spoke with [facility] admissions, they have accepted patient, ok to start precert. Cn called patient's daughter Ileana, agreeable with plan of care. [facility] tasked to start insurance auth for [facility]. - Bethany Lucero RN 07/04/25 1:29 PM [facility]08-[facility] History of Present illness Narrative* Felix Hallman MD - 07/04/2025 10:18 AM EDT Images from the original note were not included. [facility] INTERNAL MEDICINE [facility] - MED SURG [address] [place] [phone] Hospital Medicine Progress Note Patient: Cuca Dee Date of : 1945 Room: [facility] PCP: KAIDEN Hopkins Admission date: 07/02/2025 5:45 PM Encounter date: 07/04/25 Hospital Day: 3 SUBJECTIVE Interval History: Status: improved. No overnight events. Patient reports feels ok today. Denies any chest pain/pressure or shortness of breath. Denies any nausea reports that she feels it was the eggs. Upset that she can't go to [facility]. 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 jail coming to do a bed side evaluation today. Patient is anxious about where she is going and when she is going will add small dose of BuSpar can hold for sedation. Medically Ready for Discharge: Anticipated Tomorrow KAIDEN Magana 07/04/2025 4:11 PM [facility] 7AM-7PM & 7PM-7AM: EpicChat or page through [employer]. KAIDEN Magana 07/04/25 9236 Physician Attestation I, Felix Hallman MD, personally [...] continue to hold Lasix documented in this encounterSumma [facility]08-20-2025 Progress note* PT/OT/TRANSPORTATION ASSOCIATE - José Luis Cheng PT - 07/04/2025 9:50 AM EDT Physical Therapy Reason For Patient Refusal (comment required): (P) Pain (Pt c/o back pain and requesting to defer therapy until she has her SNF consult today. Will check back later with pt) [facility]08-[facility] Progress note* PT/OT/TRANSPORTATION ASSOCIATE - DANDRE Escobar/Trice - 07/04/2025 9:49 AM [...] stating she wants to talk to the senior living rep. When they get here and then do therapy. OT encouraged sitting at EOB for simple ADLs, however, pt again declined this. OT to defer treatment at this time and will attempt again at a later time. [employer] Work Phone: 1(421) 367-727708-20-2025 Plan of care note* Plan of Care [...] also shows no change in renal function. [employer] Work Phone: 1(193) 892-340508-20-2025 Plan of care note* Plan of Care - Cesilia Hand RN - 07/04/2025 7:23 AM EDT Problem: Pain Goal: Patient goal is pain score less than 4, able to rest, and participant in treatment plan as appropriate Description: INTERVENTIONS: 1. Encourage patient or legal hardware supplies sales representative to report early pain and ask [...] per policy 9. Teach patient or legal hardware supplies sales representative interventions for comforting Note: Evaluation of [...] at the bedside 7. Instruct patient/ patient hardware supplies sales representative about use of safety devices 8. Include patient/ patient hardware supplies sales representative in decisions related to safety Note: Evaluation of progress towards goal: safety precautions in place. [facility]08-19-2025 Plan of care note* Plan of Care - Kristy Galarza RN - 07/03/2025 8:58 PM EDT Problem: Pain Goal: Patient goal is pain score less than 4, able to rest, and participant in treatment plan as appropriate Description: INTERVENTIONS: 1. Encourage patient or legal hardware supplies sales representative to report early pain and ask [...] per policy 9. Teach patient or legal hardware supplies sales representative interventions for comforting Outcome: Progressing Note: [...] at the bedside 7. Instruct patient/ patient hardware supplies sales representative about use of safety devices 8. Include patient/ patient hardware supplies sales representative in decisions related to safety Outcome: [...] hygiene technique. 7. Identify and instruct patient/patient hardware supplies sales representative in use of appropriate isolation precautionsfor identified infection/symptoms. 8. Provide and discuss with patient/patient hardware supplies sales representative on educational MDRO sheet. 9. Encourage and monitor nutritional status daily and consult hospital superintendent if indicated. 10. Implement neutropenic guidelines as needed. Outcome: Progressing Note: Evaluation of progress towards goal: Patient VS WNL, remains afebrile for shift. Continue to monitor. Problem: Knowledge Deficit Goal: Patient/patient hardware supplies sales representative demonstrates understanding of disease process, treatment [...] Collaborate with ancillary departments 14. Include patient/patient hardware supplies sales representative in decisions related to anxiety Outcome: [...] providing care 6. Collaborate with pastoral/spiritual care, public health social worker, mental health counselor as needed. 7. Instruct patient on diversional activities such as physical activity, distraction, and deep breathing exercises to assist with coping 8. Involve patient's hardware supplies sales representative in care Outcome: Progressing Note: Evaluation [...] discharge planning process 5. Communicate referral to asthma educator as appropriate 6. Communicate referral to hospital superintendent as appropriate 7. Collaborate with case management/public health social worker for discharge needs Outcome: Progressing Note: Evaluation [...] supplement as ordered 13. Collaborate with clinical hospital superintendent 14. Include patient/ patient's hardware supplies sales representative in decisions related to nutrition Outcome: [...] Moderate - High Risk Fall Score Description: [place] Fall Score of =/> 25 or indicated by [facility] Assessment Goal: Patient should be free from fall Description: Interventions: 1. [place] to environment 2. Hourly rounds addressing the [...] non-skid footwear 11. Teach patient and patient hardware supplies sales representative to maintain environment for safety and [...] (cane, walker) within reach 19. Request patient hardware supplies sales representative bring adaptive equipment/mobility aids from home or obtain and provide as needed 20. Consult pharmacy regarding effects of med's affecting mobility, cognition, and alternatives 21. Obtain physician order for PT if risk factors associated with mobility are present 22. Obtain physician order for OT as appropriate 23. Utilize diversional activities 24. Educate patient and patient hardware supplies sales representative how to maintain a safe environment during visitationtimes (notify nurse prior to leaving bedside) 25. Consider appropriateness of medical or non-medical billing representative 26. Set up voiding schedule as appropriate [...] to next level of care provider (care center manager, PCP, home care). 5. Complete follow up [...] goal: Continue to assess for when appropriate. [facility] [id number] Consult note* Waleska Ball, IRINEO - 07/03/2025 2:27 PM EDTAssociated Order(s): IP CONSULT TO NUTRITION SERVICES Summary: Nutrition Assessment NUTRITION ADULT INITIAL EVALUATION NUTRITION ASSESSMENT: Consult received regarding Type 2 DM, and predicted sub- optimal PO intake related to c/o n/v. 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 mellitus ([facility]) Chronic diastolic congestive heart failure ([facility]) Weakness Iron deficiency anemia Past Medical History: Past Medical History: Diagnosis Date Anemia Arthritis Asthma very mild, no inhaler use Cataract Dental disease Depression Diabetes mellitus ([facility]) Diabetes mellitus type 2, controlled ([facility]) Encephalitis Foot fracture, left GERD (gastroesophageal reflux disease) Heart murmur HLD (hyperlipidemia) Hypertension Incontinence Injury of back Insulin dependent diabetes mellitus Kidney failure STAGE 4 Lumbar spondylolysis Murmur Obesity CHELSEA (obstructive sleep apnea) no machine Peptic ulceration Peripheral vascular disease Shortness of breath Stroke ([facility]) 02/27/2024 TIA (transient ischemic attack) Upper respiratory infection UTI (urinary tract infection) Visual impairment Wears dentures Past Surgical History: Past Surgical History: Procedure Laterality Date BREAST BIOPSY Right 03/01/2023 ULT BIOPSY CATARACT EXTRACTION SECTION SECTION 03/14/1974 EGD N/A 10/17/2019 Performed by Sarai Bell DO at [facility] H-PERCUTANEOUS CORONARY INTERVENTION HYSTEROSCOPY DILATION CURETTAGE MYOSURE N/A 01/29/2021 Performed by Jv Briones MD at [facility] INJECTION BLOCK EPIDURAL CAUDAL STEROID N/A 08/14/2022 Performed by Arnulfo Morgan MD at [facility] INJECTION BLOCK EPIDURAL CAUDAL STEROID N/A 06/06/2021 Performed by Arnulfo Morgan MD at [facility] INJECTION BLOCK EPIDURAL CAUDAL STEROID N/A 04/25/2021 Performed by Arnulfo Morgan MD at [facility] INJECTION CAUDAL EPIDURAL WITH CATHETER, STEROID N/A 05/03/2020 Performed by Arnulfo Morgan MD at [facility] INJECTION CAUDAL EPIDURAL WITH CATHETER, STEROID N/A 11/24/2019 Performed by Arnulfo Morgan MD at [facility] INJECTION CAUDAL EPIDURAL WITH CATHETER, STEROID N/A 04/21/2019 Performed by Arnulfo Morgan MD at [facility] NERVE BLOCK Bilateral L 4/5, 5/1 Bilateral 08/18/2019 Performed by Arnulfo Morgan MD at [facility] NERVE BLOCK Bilateral L 4/5, 5/1 Bilateral 06/23/2019 Performed by Arnulfo Morgan MD at [facility] STEROID EPI 1 WITH SEDATION Right L 4, 5 NR Right 03/17/2019 Performed by Arnulfo Morgan MD at [facility] STEROID EPI 1 WITH SEDATION: right L45 nroot Right 08/15/2018 Performed by Arnulfo Morgan MD at [facility] LEFT L4, AND 5 NERVE ROOT INJECTION 2 OF 2 Left 07/22/2018 Performed by Arnulfo Morgan MD at [facility] LEFT L4, AND L5 NERVE ROOT 1 OF 2 Left 07/04/2018 Performed by Arnulfo Morgan MD at [facility] SHUNT INSERTION TONSILLECTOMY AGE 4 Transcutaneous aortic valve replacement/Transfemoral/Kwan N/A 08/17/2023 Performed by Chava Norris MD at [facility] Valvuloplasty aortic N/A 06/03/2023 Performed by Chava Norris MD at [facility] Social/ Cognitive/ Economic: Pt lives with her daughter Allergies: No Known Allergies Nutrition Focused Physical Findings 1. Extremities, Muscles, and Bones 2. Skin: Skin Color: [place] (07/03/25 0750) Skin Temp: Warm (07/03/25 0750) [...] 16 12/04/2024 Lab Results Component Value Date [id number] 02/13/2025 Lab Results Component Value Date [...] Units 10 Units subcutaneous Nightly Jazmine Do SALES REPRESENTATIVE [employer] insulin lispro (HumaLOG) injection 1-4 Units 1-4 [...] g 17 g oral Daily Jazmine Do SALES REPRESENTATIVE [employer] 17 g at 07/03/25 1152 promethazine (PHENERGAN) [...] (185 lb) Percent Usual Body Weight: 96% [place] Body Weight: 57 (07/02/25 1815) Percent [place] Body Weight: 138% Body mass index is [...] Based on Comparative Standards: Estimated Energy Needs: 5456-1677 kcals daily. Method and weight used: 25-30 kcal/kg IBW Estimated Protein Needs: 68-114 grams daily. Method and weight used: 1.2-2 g protein/kg IBW Estimated Fluid Needs: 7047-9764 ml daily. Method weight used: 1 ml/kcal [...] estimated protein and kcal needs. Pt told marketing writer that Breakfast did not sit well with her either. Pt withh/o Type 2 DM, pt stated last A1c from Endocrinology office was below 7%, pt wears a Dex Com CGM. Pt's BG ranging from 99-204, Humalog ssc ac and hs ordered, pt reports taking Levemir 20 units and Humalog ssc ac at home. Notified CLOTH [employer]ER of home Levemir dose as not on med rec, ordered Lantus 10 units to start tonight. NUTRITION INTERVENTIONS: Meals & snacks: Clear liquid diet Supplements (medical food, vitamin or mineral): Ensure Clear TID Coordination of nutrition care: discussed insulin needs with CLOTH [employer]ER Coordination of nutrition care: reviewed home insulin regimen with pt Goals: Tolerates oral intake RECOMMENDATIONS: Continue Clear Liquid diet, will add Ensure Clear TID. Advance diet to Regular as tolerance permits. Will monitor PO tolerance as diet advanced. Nutrition Monitoring and Evaluation: Fluid/Beverage Intake (1.2.1), Food Intake (1.2.2), and Weight Change, Lab Values and POC Waleska Ball RD, LD, CDCES [facility]08-19-2025 Consult note* IRINEO Cheng - 07/03/2025 2:27 PM EDTAssociated Order(s): IP CONSULT TO NUTRITION SERVICES Summary: Nutrition Assessment NUTRITION ADULT INITIAL EVALUATION NUTRITION ASSESSMENT: Consult received regarding Type 2 DM, and predicted sub- optimal PO intake related to c/o n/v. 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 mellitus ([facility]) Chronic diastolic congestive heart failure ([facility]) Weakness Iron deficiency anemia Past Medical History: Past Medical History: Diagnosis Date Anemia Arthritis Asthma very mild, no inhaler use Cataract Dental disease Depression Diabetes mellitus ([facility]) Diabetes mellitus type 2, controlled ([facility]) Encephalitis Foot fracture, left GERD (gastroesophageal reflux disease) Heart murmur HLD (hyperlipidemia) Hypertension Incontinence Injury of back Insulin dependent diabetes mellitus Kidney failure STAGE 4 Lumbar spondylolysis Murmur Obesity CHELSEA (obstructive sleep apnea) no machine Peptic ulceration Peripheral vascular disease Shortness of breath Stroke ([facility]) 02/27/2024 TIA (transient ischemic attack) Upper respiratory infection UTI (urinary tract infection) Visual impairment Wears dentures Past Surgical History: Past Surgical History: Procedure Laterality Date BREAST BIOPSY Right 03/01/2023 ULT BIOPSY CATARACT EXTRACTION SECTION SECTION 03/14/1974 EGD N/A 10/17/2019 Performed by Sarai Bell DO at [facility] H-PERCUTANEOUS CORONARY INTERVENTION HYSTEROSCOPY DILATION CURETTAGE MYOSURE N/A 01/29/2021 Performed by Jv Briones MD at [facility] INJECTION BLOCK EPIDURAL CAUDAL STEROID N/A 08/14/2022 Performed by Arnulfo Morgan MD at [facility] INJECTION BLOCK EPIDURAL CAUDAL STEROID N/A 06/06/2021 Performed by Arnulfo Morgan MD at [facility] INJECTION BLOCK EPIDURAL CAUDAL STEROID N/A 04/25/2021 Performed by Arnulfo Morgan MD at [facility] INJECTION CAUDAL EPIDURAL WITH CATHETER, STEROID N/A 05/03/2020 Performed by Arnulfo Morgan MD at [facility] INJECTION CAUDAL EPIDURAL WITH CATHETER, STEROID N/A 11/24/2019 Performed by Arnulfo Morgan MD at [facility] INJECTION CAUDAL EPIDURAL WITH CATHETER, STEROID N/A 04/21/2019 Performed by Arnulfo Morgan MD at [facility] NERVE BLOCK Bilateral L 4/5, 5/1 Bilateral 08/18/2019 Performed by Arnulfo Morgan MD at [facility] NERVE BLOCK Bilateral L 4/5, 5/1 Bilateral 06/23/2019 Performed by Arnulfo Morgan MD at [facility] STEROID EPI 1 WITH SEDATION Right L 4, 5 NR Right 03/17/2019 Performed by Arnulfo Morgan MD at [facility] INJECTION STEROID EPI 1 WITH SEDATION: right L45 nroot Right 08/15/2018 Performed by Arnulfo Morgan MD at [facility] LEFT L4, AND 5 NERVE ROOT INJECTION 2 OF 2 Left 07/22/2018 Performed by Arnulfo Morgan MD at [facility] LEFT L4, AND L5 NERVE ROOT 1 OF 2 Left 07/04/2018 Performed by Arnulfo Morgan MD at [facility] SHUNT INSERTION TONSILLECTOMY AGE 4 Transcutaneous aortic valve replacement/Transfemoral/Kwan N/A 08/17/2023 Performed by Chava Norris MD at [facility] Valvuloplasty aortic N/A 06/03/2023 Performed by Chava Norris MD at [facility] Social/ Cognitive/ Economic: Pt lives with her daughter Allergies: No Known Allergies Nutrition Focused Physical Findings 1. Extremities, Muscles, and Bones 2. Skin: Skin Color: [place] (07/03/25 0750) Skin Temp: Warm (07/03/25749) 3. [...] 16 12/04/2024 Lab Results Component Value Date [id number] 02/13/2025 Lab Results Component Value Date [...] 17 g oral Daily Jazmine Do APRN- [facility] HAULER 17 g at 07/03/25 1152 promethazine (PHENERGAN) [...] (185 lb) Percent Usual Body Weight: 96% [place] Body Weight: 57 (07/02/25 1815) Percent [place] Body Weight: 138% Body mass index is [...] Based on Comparative Standards: Estimated Energy Needs: 2523-7825 kcals daily. Method and weight used: 25-30 kcal/kg IBW Estimated Protein Needs: 68-114 grams daily. Method and weight used: 1.2-2 g protein/kg IBW Estimated Fluid Needs: 2198-8056 ml daily. Method weight used: 1 ml/kcal [...] estimated protein and kcal needs. Pt told marketing writer that Breakfast did not sit well with her either. Pt withh/o Type 2 DM, pt stated last A1c from Endocrinology office was below 7%, pt wears a Dex Com CGM. Pt's BG ranging from 99-204, Humalog ssc ac and hs ordered, pt reports taking Levemir 20 units and Humalog ssc ac at home. Notified CLOTH HAULER of home Levemir dose as not on med rec, ordered Lantus 10 units to start tonight. NUTRITION INTERVENTIONS: Meals & snacks: Clear liquid diet Supplements (medical food, vitamin or mineral): Ensure Clear TID Coordination of nutrition care: discussed insulin needs with [facility] HAULER Coordination of nutrition care: reviewed home insulin regimen with pt Goals: Tolerates oral intake RECOMMENDATIONS: Continue Clear Liquid diet, will add Ensure Clear TID. Advance diet to Regular as tolerance permits. Will monitor PO tolerance as diet advanced. Nutrition Monitoring and Evaluation: Fluid/Beverage Intake (1.2.1), Food Intake (1.2.2), and Weight Change, Lab Values and POC Waleska Ball RD, IRINE[place], [facility] documented in this encounterSum[facility]08-19-2025 Progress note* PT/OT/TRANSPORTATION ASSOCIATE - DANDRE Escobar/Trice - 07/03/2025 1:39 PM [...] status/safety, Fall risk, ADL status, Endurance level Prop And Effects Designer Support for-: Mobility Deficits, ADL Deficits Therapy Plan Need for skilled Occupational Therapy to address deficits in ADL independence and functional mobility due to a status decline resulting from weakness. Past Medical History: Diagnosis Date Anemia Arthritis Asthma very mild, no inhaler use Cataract Dental disease Depression Diabetes mellitus ([facility]) Diabetes mellitus type 2, controlled ([facility]) Encephalitis Foot fracture, left GERD (gastroesophageal reflux disease) Heart murmur HLD (hyperlipidemia) Hypertension Incontinence Injury of back Insulin dependent diabetes mellitus Kidney failure STAGE 4 Lumbar spondylolysis Murmur Obesity CHELSEA (obstructive sleep apnea) no machine Peptic ulceration Peripheral vascular disease Shortness of breath Stroke ([facility]) 02/27/2024 TIA (transient ischemic attack) Upper respiratory infection UTI (urinary tract infection) Visual impairment Wears dentures Past Surgical History: Procedure Laterality Date BREAST BIOPSY Right 03/01/2023 ULT BIOPSY CATARACT EXTRACTION SECTION SECTION 03/14/1974 EGD N/A 10/17/2019 Performed by Sarai Bell DO at [facility] H-PERCUTANEOUS CORONARY INTERVENTION HYSTEROSCOPY DILATION CURETTAGE MYOSURE N/A 01/29/2021 Performed by Jv Briones MD at [facility] INJECTION BLOCK EPIDURAL CAUDAL STEROID N/A 08/14/2022 Performed by Arnulfo Morgan MD at [facility] INJECTION BLOCK EPIDURAL CAUDAL STEROID N/A 06/06/2021 Performed by Arnulfo Morgan MD at [facility] INJECTION BLOCK EPIDURAL CAUDAL STEROID N/A 04/25/2021 Performed by Arnulfo Morgan MD at [facility] INJECTION CAUDAL EPIDURAL WITH CATHETER, STEROID N/A 05/03/2020 Performed by Arnulfo Morgan MD at [facility] INJECTION CAUDAL EPIDURAL WITH CATHETER, STEROID N/A 11/24/2019 Performed by Arnulfo Morgan MD at [facility] INJECTION CAUDAL EPIDURAL WITH CATHETER, STEROID N/A 04/21/2019 Performed by Arnulfo Morgan MD at [facility] NERVE BLOCK Bilateral L 4/5, 5/1 Bilateral 08/18/2019 Performed by Arnulfo Morgan MD at [facility] INJECTION MEDIAL BRANCH NERVE BLOCK Bilateral L 4/5, 5/1 Bilateral 06/23/2019 Performed by Arnulfo Morgan MD at [facility] INJECTION STEROID EPI 1 WITH SEDATION Right L 4, 5 NR Right 03/17/2019 Performed by Arnulfo Morgan MD at [facility] INJECTION STEROID EPI 1 WITH SEDATION: right L45 nroot Right 08/15/2018 Performed by Arnulfo Morgan MD at [facility] LEFT L4, AND 5 NERVE ROOT INJECTION 2 OF 2 Left 07/22/2018 Performed by Arnulfo Morgan MD at [facility] LEFT L4, AND L5 NERVE ROOT 1 OF 2 Left 07/04/2018 Performed by Arnulfo Morgan MD at [facility] INSERTION TONSILLECTOMY AGE 4 Transcutaneous aortic valve replacement/Transfemoral/Kwan N/A 08/17/2023 Performed by Chava Norris MD at [facility] Valvuloplasty aortic N/A 06/03/2023 Performed by Chava Norris MD at [facility] 6 Clicks: Daily Activity [...] socks, gait belt Weight Bearing Status: FWB Telemetry/Glucose And Syrup Weigher: Yes Oxygen Used: Room air Other: Fall [...] mellitus (CMS-HCC) Chronic diastolic congestive heart failure ([facility]) Weakness Iron deficiency anemia [facility]08-19-2025 Progress note* PT/OT/TRANSPORTATION ASSOCIATE - Dominique Aries, PT - 07/03/2025 12:43 [...] status/safety, Fall risk, ADL status, Endurance level Prop And Effects Designer Support for-: Mobility Deficits, ADL Deficits Therapy Plan Need for skilled Physical Therapy to address deficits in functional mobility due to a status decline resulting from generalized weakness/decreased activity macario d/t intractable n/v. Past Medical History: Diagnosis Date Anemia Arthritis Asthma very mild, no inhaler use Cataract Dental disease Depression Diabetes mellitus ([facility]) Diabetes mellitus type 2, controlled ([facility]) Encephalitis Foot fracture, left GERD (gastroesophageal reflux disease) Heart murmur HLD (hyperlipidemia) Hypertension Incontinence Injury of back Insulin dependent diabetes mellitus Kidney failure STAGE 4 Lumbar spondylolysis Murmur Obesity CHELSEA (obstructive sleep apnea) no machine Peptic ulceration Peripheral vascular disease Shortness of breath Stroke ([facility]) 02/27/2024 TIA (transient ischemic attack) Upper respiratory infection UTI (urinary tract infection) Visual impairment Wears dentures Past Surgical History: Procedure Laterality Date BREAST BIOPSY Right 03/01/2023 ULT BIOPSY CATARACT EXTRACTION SECTION SECTION 03/14/1974 EGD N/A 10/17/2019 Performed by Sarai Bell DO at [facility] H-PERCUTANEOUS CORONARY INTERVENTION HYSTEROSCOPY DILATION CURETTAGE MYOSURE N/A 01/29/2021 Performed by Jv Briones MD at [facility] INJECTION BLOCK EPIDURAL CAUDAL STEROID N/A 08/14/2022 Performed by Arnulfo Morgan MD at [facility] INJECTION BLOCK EPIDURAL CAUDAL STEROID N/A 06/06/2021 Performed by Arnulfo Morgan MD at [facility] INJECTION BLOCK EPIDURAL CAUDAL STEROID N/A 04/25/2021 Performed by Arnulfo Morgan MD at [facility] INJECTION CAUDAL EPIDURAL WITH CATHETER, STEROID N/A 05/03/2020 Performed by Arnulfo Morgan MD at [facility] INJECTION CAUDAL EPIDURAL WITH CATHETER, STEROID N/A 11/24/2019 Performed by Arnulfo Morgan MD at [facility] INJECTION CAUDAL EPIDURAL WITH CATHETER, STEROID N/A 04/21/2019 Performed by Arnulfo Morgan MD at [facility] NERVE BLOCK Bilateral L 4/5, 5/1 Bilateral 08/18/2019 Performed by Arnulfo Morgan MD at [facility] INJECTION MEDIAL BRANCH NERVE BLOCK Bilateral L 4/5, 5/1 Bilateral 06/23/2019 Performed by Arnulfo Morgan MD at [facility] INJECTION STEROID EPI 1 WITH SEDATION Right L 4, 5 NR Right 03/17/2019 Performed by Arnulfo Morgan MD at [facility] INJECTION STEROID EPI 1 WITH SEDATION: right L45 nroot Right 08/15/2018 Performed by Arnlufo Morgan MD at [facility] LEFT L4, AND 5 NERVE ROOT INJECTION 2 OF 2 Left 07/22/2018 Performed by Arnulfo Morgan MD at [facility] LEFT L4, AND L5 NERVE ROOT 1 OF 2 Left 07/04/2018 Performed by Arnulfo Morgan MD at [facility] SHUNT INSERTION TONSILLECTOMY AGE 4 Transcutaneous aortic valve replacement/Transfemoral/Kwan N/A 08/17/2023 Performed by Chava Norris MD at [facility] Valvuloplasty aortic N/A 06/03/2023 Performed by Chava Norris MD at [facility] 6 Clicks: Basic Mobility [...] socks, gait belt Weight Bearing Status: FWB Telemetry/Glucose And Syrup Weigher: Yes Oxygen Used: Room air Other: Fall [...] to type 2 diabetes mellitus ([facility]) Chronic diastolic congestive heart failure ([facility]) Weakness Iron deficiency anemia Observe Medical [id number] Progress note* Discharge Planning Note - Bethany [...] No Caregiver Needed Patient/Caregiver Goals Patient/Caregiver Goals [facility] Skilled Care (Short Term) Services Requested Patient expects to be discharged to: SNF Does the patient wish to have family/friend/caregiver involved in their discharge planning? No, thepatient does not wish to have family/friend/caregiver involved in their discharge planning Discharge Disposition SNF SNF Name [facility] (SNF) [phone] Fax SNF Accepted? (referral sent) Does the patient need discharge transportation arranged? Yes Transportation Arranged Ambulance DC Planning Complete Discharge Milestones Yes DISCHARGE PLANNING NOTE CN met with patient at bedside. CN discussed therapy recommendations and recent hospital admission.Patient agreeable for SNF referral be sent to [facility] only. If [facility] unable to accept, patient would like to return home with [facility]. Patient is current with [facility]. Referral sent to [facility] and [facility]. Discharge plan: [facility] SNF vs Home with [facility] (resume services) [facility] declined due to bed availability. Patient gave CN [facility] as 2nd choice, reviewing/pending bed availability. Daughter at bedside, 2 more choices given. Referrals sent to [facility] and [facility]. - Bethany Lucero RN 07/03/25 1:47 PM [facility]08-19-2025 Plan of care note* Plan of Care - Cesilia aHnd RN - 07/03/2025 7:56 AM EDT Problem: Pain Goal: Patient goal is pain score less than 4, able to rest, and participant in treatment plan as appropriate Description: INTERVENTIONS: 1. Encourage patient or legal hardware supplies sales representative to report early pain and ask [...] per policy 9. Teach patient or legal hardware supplies sales representative interventions for comforting Note: Evaluation of [...] at the bedside 7. Instruct patient/ patient hardware supplies sales representative about use of safety devices 8. Include patient/ patient hardware supplies sales representative in decisions related to safety Note: [...] hygiene technique. 7. Identify and instruct patient/patient hardware supplies sales representative in use of appropriate isolation precautionsfor identified infection/symptoms. 8. Provide and discuss with patient/patient hardware supplies sales representative on educational MDRO sheet. 9. Encourage and monitor nutritional status daily and consult hospital superintendent if indicated. 10. Implement neutropenic guidelines as needed. Note: Evaluation of progress towards goal: Standard precautions in place. Problem: Knowledge Deficit Goal: Patient/patient hardware supplies sales representative demonstrates understanding of disease process, treatment [...] Collaborate with ancillary departments 14. Include patient/patient hardware supplies sales representative in decisions related to anxiety Note: [...] providing care 6. Collaborate with pastoral/spiritual care, public health social worker, mental health counselor as needed. 7. Instruct patient on diversional activities such as physical activity, distraction, and deep breathing exercises to assist with coping 8. Involve patient's hardware supplies sales representative in care Note: Evaluation of progress [...] discharge planning process 5. Communicate referral to asthma educator as appropriate 6. Communicate referral to hospital superintendent as appropriate 7. Collaborate with case management/public health social worker for discharge needs Note: Evaluation of progress [...] supplement as ordered 13. Collaborate with clinical hospital superintendent 14. Include patient/ patient's hardware supplies sales representative in decisions related to nutrition Note: [...] Note: Evaluation of progress towards goal: monitor [facility]08-19-2025 History and physical note* Felix Hallman MD - 07/03/2025 7:16 AM EDT Images from the original note were not included. [facility] [address] [place] [id number] Hospital Medicine History & Physical Patient: Cuca Dee Date of : 1945 Room: [facility] PCP: KAIDEN Hopkins Admission date: 07/02/2025 5:45 [...] Asthma, Cataract, Dental disease, Depression, Diabetes mellitus ([facility]), Diabetes mellitus type 2, controlled ([facility]), Encephalitis, Foot fracture, left, GERD (gastroesophageal reflux disease), Heart murmur, HLD (hyperlipidemia), Hypertens ion, Incontinence, Injury of back, Insulin dependent diabetes mellitus, Kidney failure, Lumbar spondylolysis, Murmur, Obesity, CHELSEA (obstructive sleep apnea), Peptic ulceration, Peripheral vascular disease, Shortness of breath, Stroke ([facility]) (02/27/2024), TIA (transient ischemic attack), Upper respiratory [...] changes in the aorta no aneurysm Abdominal 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 first choice KAIDEN Magana 07/03/2025 4:55 PM [...] mass patient is to follow up with stock plan administrator Oncology as outpatient [facility]08-19-2025 History and physical note* Felix Hallman MD - 07/03/2025 7:16 AM EDT Images from the original note were not included. [facility] [place] [id number] MED SURG [address] [place] [phone] Hospital Medicine History & Physical Patient: Cuca Dee Date of : 1945 Room: [facility] PCP: KAIDEN Hopkins Admission date: 07/02/2025 5:45 [...] Asthma, Cataract, Dental disease, Depression, Diabetes mellitus ([facility]), Diabetes mellitus type 2, controlled ([facility]), Encephalitis, Foot fracture, left, GERD (gastroesophageal reflux disease), Heart murmur, HLD (hyperlipidemia), Hypertens ion, Incontinence, Injury of back, Insulin dependent diabetes mellitus, Kidney failure, Lumbar spondylolysis, Murmur, Obesity, CHELSEA (obstructive sleep apnea), Peptic ulceration, Peripheral vascular disease, Shortness of breath, Stroke ([facility]) (02/27/2024), TIA (transient ischemic attack), Upper respiratory [...] changes in the aorta no aneurysm 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 first choice KAIDEN Magana 07/03/2025 4:55 PM [facility] 7AM-7PM & 7PM-7AM: EpicChat or [...] mass patient is to follow up with stock plan administrator Oncology as outpatient documented in this [facility]Sum[facility]08-[facility]-2025 Plan of care note * Plan of Care - Kristy Galarza RN - 07/02/2025 10:16 PM EDT Problem: Pain Goal: Patient goal is pain score less than 4, able to rest, and participant in treatment plan as appropriate Description: INTERVENTIONS: 1. Encourage patient or legal hardware supplies sales representative to report early pain and ask [...] per policy 9. Teach patient or legal hardware supplies sales representative interventions for comforting Outcome: Progressing Note: [...] at the bedside 7. Instruct patient/ patient hardware supplies sales representative about use of safety devices 8. Include patient/ patient hardware supplies sales representative in decisions related to safety Outcome: [...] hygiene technique. 7. Identify and instruct patient/patient hardware supplies sales representative in use of appropriate isolation precautionsfor identified infection/symptoms. 8. Provide and discuss with patient/patient hardware supplies sales representative on educational MDRO sheet. 9. Encourage and monitor nutritional status daily and consult hospital superintendent if indicated. 10. Implement neutropenic guidelines as needed. Outcome: Progressing Note: Evaluation of progress towards goal: Patient VS WNL, remains afebrile for shift. Continue to monitor. Problem: Knowledge Deficit Goal: Patient/patient hardware supplies sales representative demonstrates understanding of disease process, treatment [...] Collaborate with ancillary departments 14. Include patient/patient hardware supplies sales representative in decisions related to anxiety Outcome: [...] providing care 6. Collaborate with pastoral/spiritual care, public health social worker, mental health counselor as needed. 7. Instruct patient on diversional activities such as physical activity, distraction, and deep breathing exercises to assist with coping 8. Involve patient's hardware supplies sales representative in care Outcome: Progressing Note: Evaluation [...] discharge planning process 5. Communicate referral to asthma educator as appropriate 6. Communicate referral to hospital superintendent as appropriate 7. Collaborate with case management/public health social worker for discharge needs Outcome: Progressing Note: Evaluation [...] supplement as ordered 13. Collaborate with clinical hospital superintendent 14. Include patient/ patient's hardware supplies sales representative in decisions related to nutrition Outcome: [...] skin protectant applied as needed, labs monitored. [facility] [employer] [id number] Telephone encounter Note* Telephone Encounter - RONNA [...] a 1-1 assist to pr event falls. [facility] Work Phone: [phone] 566-469608-10-2025 Miscellaneous Notes* Telephone Encounter - RONNA Barber [...] they can have outpatient therapy here in [place] at [facility] pls advise documented in this encounterMer[facility] St. John'[id number] Telephone encounter Note* Telephone Encounter - Joelle Lopez - 06/21/2025 10:58 AM EDT Cuca Tejeda's daughter called, she wants to know if they can have outpatient therapy here in [place] at [facility] pl[facility] advise [facility]'[id number] Telephone encounter Note* Telephone Encounter - Joelle Lopez - 06/18/2025 11:15 AM EDT Cuca Tejeda's daughter called and said that Cuca is taking OTC Tylenol but its not helping, wanted to know if we can call in something stronger for her. Please advise [facility]'[id number] Miscellaneous Notes* Telephone Encounter - Joelle Lopez - 06/18/2025 11:15 AM EDT Cuca Tejeda's daughter called and said that Cuca is taking OTC Tylenol but its not helping, wanted to know if we can call in something stronger for her. Please advise documented in this encounterMercy Hospital St. John'[id number] History of Present illness Narrative* RONNA Barber [...] requiring urgent evaluation. Visit was preformed using [employer] Co-airline pilot flight instructor speech recognition. documented in this encounterMercy Hospital St. John'[id number] History of Present illness Narrative* Vjhope Gray, SALES REPRESENTATIVE MEATS-CLOTH HAULER - 06/05/2025 1:00 PM EDT IM PROGRESS NOTE Patient - Cuca Dee Age - 79 y.o. [facility] 1945 [id number] ASSESSMENT & PLAN 1. Hospital discharge follow-up [...] past surgicalhistory and problem list. Out of senior living 9 days ago. Patient was found to [...] Saturation, Arterial 05/13/2025 92.0 >90.0 % Final Taot's test 05/13/2025 N/A Final SPO2 05/13/2025 68 [...] 05/12/2025 Auto Resulted Final POC Urine Specific [place] 05/12/2025 1.015 1.010, 1.015, 1.020, 1.025 Final [...] months (around 09/05/2025) for DM. EN Diaz [facility] Office: [phone] This note is dictated with the use of M*Modal. Please note that this dictation was completed with computer voice recognition software. Quite often unanticipated grammatical, syntax, homophones, and other interpretive errors are inadvertently transcribed by the computer software. Please disregard these errors. Please excuse any errors that have escaped final proofreading. KAIDEN Hopkins 06/05/25 [id number] documented in this [facility]25 NoteSUBJECTIVE: Chief complaint: NPH with [employer] shunt. History of present illness: Follow-up for normal pressure hydrocephalus. She was recently hospitalized with hypoxia and altered mental status. Found to have pneumonia as well as a right hip fracture. Fracture did not require surgical intervention. Notes that this spring, she had MRSA bacteremia. She [facility] in [facility] [facility] Denies headaches, numbness, tingling, vision [...] Diagnosis Date Aortic stenosis Asthma Atrial fibrillation ([facility]) Cancer ([facility]) 02/2023 right breast, metastatic Cataract CKD (chronic kidney disease) Coronary artery disease Depression Diabetes mellitus ([facility]/HCC) Dyslipidemia Femur fracture, right ([facility]) 04/2025 GERD (gastroesophageal reflux disease) Heart failure ([facility]/HCC) Hypertension Ischemic stroke ([facility]) 02/2024 seen at [facility] NPH (normal pressure hydrocephalus) ([facility]) PVD (peripheral vascular disease) Sleep apnea Past [...] cefuroxime cholecalciferol (vitamin D3) clopidogrel Dexcom G6 Spinner Open End muscogee Dexcom G6 Transmitter device Dexcom G7 Sensor device doxycycline ferrous sulfate FreeStyle Kartik 14 Day [place] muscogee FreeStyle Kartik 14 Day Sensor kit furosemide gabapentin hydroCHLOROthiazide insulin aspart insulin lispro lancets muscogee Lantus Solostar U-100 Insulin insulin pen letrozole Levemir FlexPen insulin pen lisinopril magnesium oxide melatonin capsule metoprolol tartrate mirtazapine miscellaneous medical supply muscogee mupirocin nystatin ONETOUCH ULTRA BLUE TEST STRIP [facility] OneTouch Ultra Test strip oxyBUTYnin pantoprazole pen [...] tablet, TAKE 4 (more content not included)... [facility]07-01-2025 Plan of care note* Plan of Care - Beatrice. Ileana Douglas RN - 05/15/2025 3:12 PM EDT Problem: Pain Goal: Patient goal is pain score less than 4, able to rest, and participant in treatment plan as appropriate Description: INTERVENTIONS: 1. Encourage patient or legal hardware supplies sales representative to report early pain and ask [...] per policy 9. Teach patient or legal hardware supplies sales representative interventions for comforting 05/15/2025 1511 by [...] at the bedside 7. Instruct patient/ patient hardware supplies sales representative about use of safety devices 8. Include patient/ patient hardware supplies sales representative in decisions related to safety 05/15/2025 [...] hygiene technique. 7. Identify and instruct patient/patient hardware supplies sales representative in use of appropriate isolation precautionsfor identified infection/symptoms. 8. Provide and discuss with patient/patient hardware supplies sales representative on educational MDRO sheet. 9. Encourage and monitor nutritional status daily and consult hospital superintendent if indicated. 10. Implement neutropenic guidelines as needed. 05/15/2025 1511 by GABBY Camarena Outcome: Adequate for Discharge 05/15/2025 1349 by GABBY Camarena Outcome: Progressing Note: Evaluation of progress towards goal: Pt afebrile at this time, continue to monitor for signs infection Problem: Knowledge Deficit Goal: Patient/patient hardware supplies sales representative demonstrates understanding of disease process, treatment [...] discharge transportation as appropriate 05/15/2025 151 by Migue RN Outcome: Adequate [...] to next level of care provider (care center manager, PCP, home care). 5. Complete follow up [...] Collaborate with ancillary departments 14. Include patient/patient hardware supplies sales representative in decisions related to anxiety 05/15/2025 [...] providing care 6. Collaborate with pastoral/spiritual care, public health social worker, mental health counselor as needed. 7. Instruct patient on diversional activities such as physical activity, distraction, and deep breathing exercises to assist with coping 8. Involve patient's hardware supplies sales representative in care 05/15/2025 1511 by Migue [...] be free from fall Description: Interventions: 1. [place] to environment 2. Hourly rounds addressing the [...] non-skid footwear 11. Teach patient and patient hardware supplies sales representative to maintain environment for safety and [...] (cane, walker) within reach 19. Request patient hardware supplies sales representative bring adaptive equipment/mobility aids from home or obtain and provide as needed 20. Consult pharmacy regarding effects of med's affecting mobility, cognition, and alternatives 21. Obtain physician order for PT if risk factors associated with mobility are present 22. Obtain physician order for OT as appropriate 23. Utilize diversional activities 24. Educate patient and patient hardware supplies sales representative how to maintain a safe environment during visitationtimes (notify nurse prior to leaving bedside) 25. Consider appropriateness of medical or non-medical billing representative 26. Set up voiding schedule as appropriate [...] supplement as ordered 13. Collaborate with clinical hospital superintendent 14. Include patient/ patient's hardware supplies sales representative in decisions related to nutrition 05/15/2025 [...] to ensure perfusion and oxygenation and ventilation [facility]07-01-[facility]25 Miscellaneous Notes* Plan of Care - Migue Douglas RN - 05/15/2025 3:12 PM EDT Problem: Pain Goal: Patient goal is pain score less than 4, able to rest, and participant in treatment plan as appropriate Description: INTERVENTIONS: 1. Encourage patient or legal hardware supplies sales representative to report early pain and ask [...] per policy 9. Teach patient or legal hardware supplies sales representative interventions for comforting 05/15/2025 1511 by [...] at the bedside 7. Instruct patient/ patient hardware supplies sales representative about use of safety devices 8. Include patient/ patient hardware supplies sales representative in decisions related to safety 05/15/2025 [...] hygiene technique. 7. Identify and instruct patient/patient hardware supplies sales representative in use of appropriate isolation precautionsfor identified infection/symptoms. 8. Provide and discuss with patient/patient hardware supplies sales representative on educational MDRO sheet. 9. Encourage and monitor nutritional status daily and consult hospital superintendent if indicated. 10. Implement neutropenic guidelines as needed. 05/15/2025 1511 by GABBY Camarena Outcome: Adequate for Discharge 05/15/2025 1349 by GABBY Camarena Outcome: Progressing Note: Evaluation of progress towards goal: Pt afebrile at this time, continue to monitor for signs infection Problem: Knowledge Deficit Goal: Patient/patient hardware supplies sales representative demonstrates understanding of disease process, treatment [...] to next level of care provider (care center manager, PCP, home care). 5. Complete follow up [...] Outcome: Adequate for Discharge 05/15/2025 1349 by GBABY Camarena Outcome: Progressing Note: Evaluation of progress [...] Collaborate with ancillary departments 14. Include patient/patient hardware supplies sales representative in decisions related to anxiety 05/15/2025 [...] providing care 6. Collaborate with pastoral/spiritual care, public health social worker, mental health counselor as needed. 7. Instruct patient on diversional activities such as physical activity, distraction, and deep breathing exercises to assist with coping 8. Involve patient's hardware supplies sales representative in care 05/15/2025 1511 by GABBY [...] be free from fall Description: Interventions: 1. [place] to environment 2. Hourly rounds addressing the [...] non-skid footwear 11. Teach patient and patient hardware supplies sales representative to maintain environment for safety and [...] (cane, walker) within reach 19. Request patient hardware supplies sales representative bring adaptive equipment/mobility aids from home or obtain and provide as needed 20. Consult pharmacy regarding effects of med's affecting mobility, cognition, and alternatives 21. Obtain physician order for PT if risk factors associated with mobility are present 22. Obtain physician order for OT as appropriate 23. Utilize diversional activities 24. Educate patient and patient hardware supplies sales representative how to maintain a safe environment during visitationtimes (notify nurse prior to leaving bedside) 25. Consider appropriateness of medical or non-medical billing representative 26. Set up voiding schedule as appropriate [...] supplement as ordered 13. Collaborate with clinical hospital superintendent 14. Include patient/ patient's hardware supplies sales representative in decisions related to nutrition 05/15/2025 [...] Prior Auth approved for admission to : [facility]/ [place], [place] (P# ; F# ) Approval # [id number] Valid for Dates: 05/15/2025 - 05/21/2025 * Plan of Care - Migue Douglas RN - 05/15/2025 1:54 PM EDT Problem: Pain Goal: Patient goal is pain score less than 4, able to rest, and participant in treatment plan as appropriate Description: INTERVENTIONS: 1. Encourage patient or legal hardware supplies sales representative to report early pain and ask [...] per policy 9. Teach patient or legal hardware supplies sales representative interventions for comforting Outcome: Progressing Note: [...] at the bedside 7. Instruct patient/ patient hardware supplies sales representative about use of safety devices 8. Include patient/ patient hardware supplies sales representative in decisions related to safety Outcome: [...] hygiene technique. 7. Identify and instruct patient/patient hardware supplies sales representative in use of appropriate isolation precautionsfor identified infection/symptoms. 8. Provide and discuss with patient/patient hardware supplies sales representative on educational MDRO sheet. 9. Encourage and monitor nutritional status daily and consult hospital superintendent if indicated. 10. Implement neutropenic guidelines as needed. Outcome: Progressing Note: Evaluation of progress towards goal: Pt afebrile at this time, continue to monitor for signs infection Problem: Knowledge Deficit Goal: Patient/patient hardware supplies sales representative demonstrates understanding of disease process, treatment [...] to next level of care provider (care center manager, PCP, home care). 5. Complete follow up [...] Collaborate with ancillary departments 14. Include patient/patient hardware supplies sales representative in decisions related to anxiety Outcome: [...] providing care 6. Collaborate with pastoral/spiritual care, public health social worker, mental health counselor as needed. 7. Instruct patient on diversional activities such as physical activity, distraction, and deep breathing exercises to assist with coping 8. Involve patient's hardware supplies sales representative in care Outcome: Progressing Note: Evaluation of progress towards goal: Pt's on telemetry, strip read at beginning of shift and when changes occur and monitored throughout shift. Pt free of any dysrhythmias. VS and focused assessment done every 4 hours. Problem: Moderate - High Risk Fall Score Description: Patel Fall Score of =/> 25 or indicated by [facility] Assessment Goal: Patient should be free from fall Description: Interventions: 1. [place] to environment 2. Hourly rounds addressing the [...] non-skid footwear 11. Teach patient and patient hardware supplies sales representative to maintain environment for safety and [...] (cane, walker) within reach 19. Request patient hardware supplies sales representative bring adaptive equipment/mobility aids from home or obtain and provide as needed 20. Consult pharmacy regarding effects of med's affecting mobility, cognition, and alternatives 21. Obtain physician order for PT if risk factors associated with mobility are present 22. Obtain physician order for OT as appropriate 23. Utilize diversional activities 24. Educate patient and patient hardware supplies sales representative how to maintain a safe environment during visitationtimes (notify nurse prior to leaving bedside) 25. Consider appropriateness of medical or non-medical billing representative 26. Set up voiding schedule as appropriate [...] supplement as ordered 13. Collaborate with clinical hospital superintendent 14. Include patient/ patient's hardware supplies sales representative in decisions related to nutrition Outcome: [...] ensure perfusion and oxygenation and ventilation * PT/OT/TRANSPORTATION ASSOCIATE - Maryanne Hernandez, PT - 05/15/2025 9:51 AM EDT Physical Therapy Evaluation Discharge Recommendations for Safe Patient Transition Discharge Recommendations: Post acute - moderate Post Acute Moderate Rehab Needs: Recommend moderate intensity rehab, Tolerate 1- 2 hrs of therapy 3-5 days/wk, Subacute or chronic functional impairment Current Impairments Informing Therapy Recommendation: Ambulation status/safety, Cognition, Fall risk, ADL status, Endurance level Prop And Effects Designer Support for-: Mobility Deficits, ADL Deficits, Cognitive [...] 6 Clicks: Basic Mobility Raw Score: 11 [facility] G Code Modifier: CL Therapy Plan [...] gait belt, IV/midline Weight Bearing Status: WBAT Telemetry/Glucose And Syrup Weigher: Yes Oxygen Used: room air Other: fall risk Past Medical History: Diagnosis Date Anemia Arthritis Asthma very mild, no inhaler use Cataract Dental disease Depression Diabetes mellitus ([facility]) Diabetes mellitus type 2, controlled ([facility]) Encephalitis Foot fracture, left GERD (gastroesophageal reflux disease) Heart murmur HLD (hyperlipidemia) Hypertension Incontinence Injury of back Insulin dependent diabetes mellitus Kidney failure STAGE 4 Lumbar spondylolysis Murmur Obesity CHELSEA (obstructive sleep apnea) no machine Peptic ulceration Peripheral vascular disease Shortness of breath Stroke ([facility]) 02/27/2024 TIA (transient ischemic attack) Upper respiratory infection UTI (urinary tract infection) Visual impairment Wears dentures Past Surgical History: Procedure Laterality Date BREAST BIOPSY Right 03/01/2023 ULT BIOPSY CATARACT EXTRACTION SECTION SECTION 03/14/1974 EGD N/A 10/17/2019 Performed by Sarai Bell DO at [facility] H-PERCUTANEOUS CORONARY INTERVENTION HYSTEROSCOPY DILATION CURETTAGE MYOSURE N/A 01/29/2021 Performed by Jv Briones MD at [facility] INJECTION BLOCK EPIDURAL CAUDAL STEROID N/A 08/14/2022 Performed by Arnulfo Morgan MD at [facility] INJECTION BLOCK EPIDURAL CAUDAL STEROID N/A 06/06/2021 Performed by Arnulfo Morgan MD at [facility] INJECTION BLOCK EPIDURAL CAUDAL STEROID N/A 04/25/2021 Performed by Arnulfo Morgan MD at [facility] INJECTION CAUDAL EPIDURAL WITH CATHETER, STEROID N/A 05/03/2020 Performed by Arnulfo Morgan MD at [facility] INJECTION CAUDAL EPIDURAL WITH CATHETER, STEROID N/A 11/24/2019 Performed by Arnulfo Morgan MD at [facility] INJECTION CAUDAL EPIDURAL WITH CATHETER, STEROID N/A 04/21/2019 Performed by Arnulfo Morgna MD at [facility] NERVE BLOCK Bilateral L 4/5, 5/1 Bilateral 08/18/2019 Performed by Arnulfo Morgan MD at [facility] INJECTION MEDIAL BRANCH NERVE BLOCK Bilateral L 4/5, 5/1 Bilateral 06/23/2019 Performed by Arnulfo Morgan MD at [facility] INJECTION STEROID EPI 1 WITH SEDATION Right L 4, 5 NR Right 03/17/2019 Performed by Arnulfo Morgan MD at [facility] INJECTION STEROID EPI 1 WITH SEDATION: right L45 nroot Right 08/15/2018 Performed by Arnulfo Morgan MD at [facility] LEFT L4, AND 5 NERVE ROOT INJECTION 2 OF 2 Left 07/22/2018 Performed by Arnulfo Morgan MD at [facility] LEFT L4, AND L5 NERVE ROOT 1 OF 2 Left 07/04/2018 Performed by Arnulfo Morgan MD at [facility] SHUNT INSERTION TONSILLECTOMY AGE 4 Transcutaneous aortic valve replacement/Transfemoral/Kwan N/A 08/17/2023 Performed by Chava Norris MD at [facility] Valvuloplasty aortic N/A 06/03/2023 Performed by Chava Norris MD at [facility] Subjective Physical Therapy Comments: [...] Principal Problem: Acute respiratory failure with hypoxia ([facility]) Active Problems: 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 mellitus ([facility]) Mixed diabetic hyperlipidemia associated with type 2 diabetes mellitus ([facility]) Obstructive sleep apnea syndrome Essential (primary) hypertension Acute on chronic diastolic congestive heart failure ([facility]) Stage 3b chronic kidney disease ([facility]) Type 2 diabetes mellitus with diabetic chronic kidney disease ([facility]) Iron deficiency anemia Hypomagnesemia Closed fracture of right hip ([facility]) Nondisplaced fracture of lesser trochanter of right femur, initial encounter for closed fracture ([facility]) * PT/OT/TRANSPORTATION ASSOCIATE - DANDRE Vargas/Trice - 05/15/2025 9:05 AM EDT Occupational Therapy Evaluation Discharge Recommendations for Safe Patient Transition Discharge Recommendations: Post acute - moderate Post Acute Moderate Rehab Needs: Recommend moderate intensity rehab, Subacute or chronic functionalimpairment, Tolerate 1-2 hrs of therapy 3-5 days/wk Current Impairments Informing Therapy Recommendation: Ambulation status/safety, Cognition, Fall risk, ADL status, Endurance level Prop And Effects Designer Support for-: Mobility Deficits, ADL Deficits, Cognitive [...] 10/17/2019 Performed by Sarai Bell DO at [facility] H-PERCUTANEOUS CORONARY INTERVENTION HYSTEROSCOPY DILATION CURETTAGE MYOSURE N/A 01/29/2021 Performed by Jv Briones MD at [facility] INJECTION BLOCK EPIDURAL CAUDAL STEROID N/A 08/14/2022 Performed by Arnulfo Morgan MD at [facility] BLOCK EPIDURAL CAUDAL STEROID N/A 06/06/2021 Performed by Arnulfo Morgan MD at [facility] INJECTION BLOCK EPIDURAL CAUDAL STEROID N/A 04/25/2021 Performed by Arnulfo Morgan MD at [facility] CAUDAL EPIDURAL WITH CATHETER, STEROID N/A 05/03/2020 Performed by Arnulfo Morgan MD at [facility] INJECTION CAUDAL EPIDURAL WITH CATHETER, STEROID N/A 11/24/2019 Performed by Arnulfo Morgan MD at [facility] INJECTION CAUDAL EPIDURAL WITH CATHETER, STEROID N/A 04/21/2019 Performed by Arnulfo Morgan MD at [facility] NERVE BLOCK Bilateral L 4/5, 5/1 Bilateral 08/18/2019 Performed by Arnulfo Morgan MD at [facility] NERVE BLOCK Bilateral L 4/5, 5/1 Bilateral 06/23/2019 Performed by Arnulfo Morgan MD at [facility] INJECTION STEROID EPI 1 WITH SEDATION Right L 4, 5 NR Right 03/17/2019 Performed by Arnulfo Morgan MD at [facility] STEROID EPI 1 WITH SEDATION: right L45 nroot Right 08/15/2018 Performed by Arnulfo Morgan MD at [facility] LEFT L4, AND 5 NERVE ROOT INJECTION 2 OF 2 Left 07/22/2018 Performed by Arnulfo Morgan MD at [facility] LEFT L4, AND L5 NERVE ROOT 1 OF 2 Left 07/04/2018 Performed by Arnulfo Morgan MD at [facility] SHUNT INSERTION TONSILLECTOMY AGE 4 Transcutaneous aortic valve replacement/Transfemoral/Kwan N/A 08/17/2023 Performed by Chava Norris MD at [facility] Valvuloplasty aortic N/A 06/03/2023 Performed by Chava Norris MD at [facility] Past Medical History: Diagnosis Date Anemia Arthritis Asthma very mild, no inhaler use Cataract Dental disease Depression Diabetes mellitus ([facility]) Diabetes mellitus type 2, controlled ([facility]) Encephalitis Foot fracture, left GERD (gastroesophageal reflux disease) Heart murmur HLD (hyperlipidemia) Hypertension Incontinence Injury of back Insulin dependent diabetes mellitus Kidney failure STAGE 4 Lumbar spondylolysis Murmur Obesity CHELSEA (obstructive sleep apnea) no machine Peptic ulceration Peripheral vascular disease Shortness of breath Stroke ([facility]) 02/27/2024 TIA (transient ischemic attack) Upper respiratory [...] gait belt, IV/midline Weight Bearing Status: WBAT Telemetry/Glucose And Syrup Weigher: Yes Oxygen Used: room air Other: fall [...] in the community- [facility] Homemaking Assistance: Needs assistance (daugther and grandson [...] Deficit: R sock (due to pain) Other: marketing writer introduced slef role and goals, marketing writer familaiar with patient. patient agreeable to eval. completes sponge bath while seated on edge of bed, changes gown once seated in chair. brekfast tray arrives and session terminated Home Management - IADL Other: marketing writer introduced slef role and goals, marketing writer zulma with patient. patient agreeable to [...] Principal Problem: Acute respiratory failure with hypoxia ([facility]) Active Problems: 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 mellitus ([facility]) Mixed diabetic hyperlipidemia associated with type 2 diabetes mellitus ([facility]) Obstructive sleep apnea syndrome Essential (primary) hypertension Acute on chronic diastolic congestive heart failure ([facility]) Stage 3b chronic kidney disease ([facility]) Type 2 diabetes mellitus with diabetic chronic kidney disease ([facility]) Iron deficiency anemia Hypomagnesemia Closed fracture of right hip ([facility]) Nondisplaced fracture of lesser trochanter of right femur, initial encounter for closed fracture ([facility]) * Discharge Planning Note - Purvi Cardenas RN - 05/15/2025 8:35 AM EDT DISCHARGE PLANNING NOTE [facility] PT/OT reminded via secure chat that we need PT/OT notes to submit for [facility] insurance authorization. Patient Discharge Plan: [facility] (accepted) and pending insurance authorization. Can't submit until we have PT/OT evaluation and recommendation. Patient is WBAT. Plan of Care: [facility] (SNF) [phone] Fax CRF at Discharge Follow up appointments: Orthopedics would like to see patient in two weeks. This was added to AVS for SNF to schedule for patient. - Purvi Cardenas RN 05/15/25 8:35 AM PT and OT notes completed. Tasked pre-certification team to begin insurance authorization for patient to go to [place]. Patient Discharge Plan: [facility] Hospital (accepted) and pending insurance authorization. Plan of Care: [facility] (SNF) [phone] Fax CRF at Discharge Follow up appointments: Orthopedics would like to see patient in two weeks. This was added to AVS for SNF to schedule for patient. - Purvi Cardenas RN 05/15/25 12:58 PM Insurance authorization received. Provider placed discharge order. Preadmission Screening & Resident Review (PASSR) PASSR completed via the [employer] Electronic Notification System) ODM 7000 (short form) completed and submitted? yes Is a Level II Evaluation required? no [facility] completion. yes CRF sent via CarePort yes Patient Discharge Plan: [facility] (accepted) and insurance authorization received. Plan of Care: [facility] (SNF) [phone] Fax CRF at Discharge Follow up appointments: [...] at the bedside 7. Instruct patient/ patient hardware supplies sales representative about use of safety devices 8. Include patient/ patient hardware supplies sales representative in decisions related to safety Outcome: [...] of this patient during hospital stay * PT/OT/TRANSPORTATION ASSOCIATE - Juana Ramsey OTR/L - 05/14/2025 1:29 [...] and via phone with patient's daughter, Ismael. Public Speaking Instructor identified self and role to the patient. [...] unit as she had a foul odor. Public Speaking Instructor spoke with daughter, Ismael. She is agreeable [...] were just approved for an aid through [employer]. However, there is no aid availability to send into the home yet. Public Speaking Instructor discusses with Ismael that we will haev [...] Services Nurse visit Community Agencies Currently Utilized Dba [Passport case filler and they plan to send an aidwhen they have availability.] Community Referrals / Resources Provided Denies needs Who is the existing DME Provider? [employer] ([employer]) ) Established DME Comments Walker, shower chair, [...] Requested Patient expects to be discharged to: correction care Does the patient wish to have family/friend/caregiver involved in their discharge planning? Yes Does the patient plan to return home to a community setting? No, patient to discharge to facility-based provider. See Discharge Disposition Discharge Disposition SNF Who is the existing DME Provider? [employer] ([employer]) ) Does the patient need discharge transportation arranged? Yes Transportation Arranged Ambulance Patient choice offered Patient declined List Provided Patient declined Patient Declined Other (must state reason) [Patient states she only wants to go to [place]] DC Planning Complete Discharge Milestones Yes Pharmacy: [facility] PCP: Pam Stinson Consulting Providers this admission: Orthopedics for fracture Patient will make her own follow up appointments: no To be made by [facility] Patient Goals: Goals per daughter and patient to SNF (pt-stated) Evaluation of progress towards goal: Patient and daughter agree she will need skilled care as a result of the fracture she has. PT Recommends: Pending evaluation OT Recommends: Pending evaluation Patient denies need for correction facility list. She states she will not ever go to [facility] again. She will only go to [facility]. Tasked transition team to send referral. Plan to prevent readmission: To correction facility. As above lengthy discission with patient and daughter regarding the need for patient to be clean at home and take her showers and change her clothes. Patient/Family do not endorse any questions at this time. Patient Discharge Plan: [facility] (accepted) and pending insurance authorization. Can't submit until we have PT/OT evaluation and recommendation. Patient is WBAT. Plan of Care: [facility] (SNF) [phone] Fax CRF at Discharge Follow up appointments: Orthopedics would like to see patient in two weeks. This was added to AVS for SNF to schedule for patient. Purvi Cardenas RN 05/14/25 1:25 PM * Discharge Planning Note - Brii Manley - 05/14/2025 11:14 AM EDT DISCHARGE PLANNING NOTE Referral sent to. [facility]/ [place], [place] (P# ; F# ) * PT/OT/TRANSPORTATION ASSOCIATE - Maryanne Hernandez, PT - 05/14/2025 10:48 [...] Description: INTERVENTIONS: 1. Encourage patient or legal hardware supplies sales representative to report early pain and ask [...] per policy 9. Teach patient or legal hardware supplies sales representative interventions for comforting Outcome: Progressing Note: [...] at the bedside 7. Instruct patient/ patient hardware supplies sales representative about use of safety devices 8. Include patient/ patient hardware supplies sales representative in decisions related to safety Outcome: [...] hygiene technique. 7. Identify and instruct patient/patient hardware supplies sales representative in use of appropriate isolation precautionsfor identified infection/symptoms. 8. Provide and discuss with patient/patient hardware supplies sales representative on educational MDRO sheet. 9. Encourage and monitor nutritional status daily and consult hospital superintendent if indicated. 10. Implement neutropenic guidelines as needed. Outcome: Progressing Note: Evaluation of progress towards goal: Pt afebrile at this time, continue to monitor for signs infection Problem: Knowledge Deficit Goal: Patient/patient hardware supplies sales representative demonstrates understanding of disease process, treatment [...] to next level of care provider (care center manager, PCP, home care). 5. Complete follow up [...] Collaborate with ancillary departments 14. Include patient/patient hardware supplies sales representative in decisions related to anxiety Outcome: [...] providing care 6. Collaborate with pastoral/spiritual care, public health social worker, mental health counselor as needed. 7. Instruct patient on diversional activities such as physical activity, distraction, and deep breathing exercises to assist with coping 8. Involve patient's hardware supplies sales representative in care Outcome: Progressing Note: Evaluation [...] be free from fall Description: Interventions: 1. [place] to environment 2. Hourly rounds addressing the [...] non-skid footwear 11. Teach patient and patient hardware supplies sales representative to maintain environment for safety and [...] (cane, walker) within reach 19. Request patient hardware supplies sales representative bring adaptive equipment/mobility aids from home or obtain and provide as needed 20. Consult pharmacy regarding effects of med's affecting mobility, cognition, and alternatives 21. Obtain physician order for PT if risk factors associated with mobility are present 22. Obtain physician order for OT as appropriate 23. Utilize diversional activities 24. Educate patient and patient hardware supplies sales representative how to maintain a safe environment during visitationtimes (notify nurse prior to leaving bedside) 25. Consider appropriateness of medical or non-medical billing representative 26. Set up voiding schedule as appropriate [...] supplement as ordered 13. Collaborate with clinical hospital superintendent 14. Include patient/ patient's hardware supplies sales representative in decisions related to nutrition Outcome: [...] labs monitored. * Plan of Care - Genoveva Medley RN - 05/13/2025 11:41 PM EDT Problem: Pain Goal: Patient goal is pain score less than 4, able to rest, and participant in treatment plan as appropriate Description: INTERVENTIONS: 1. Encourage patient or legal hardware supplies sales representative to report early pain and ask [...] per policy 9. Teach patient or legal hardware supplies sales representative interventions for comforting Outcome: Progressing Note: [...] at the bedside 7. Instruct patient/ patient hardware supplies sales representative about use of safety devices 8. Include patient/ patient hardware supplies sales representative in decisions related to safety Outcome: [...] hygiene technique. 7. Identify and instruct patient/patient hardware supplies sales representative in use of appropriate isolation precautionsfor identified infection/symptoms. 8. Provide and discuss with patient/patient hardware supplies sales representative on educational MDRO sheet. 9. Encourage and monitor nutritional status daily and consult hospital superintendent if indicated. 10. Implement neutropenic guidelines as needed. Outcome: Progressing Note: Evaluation of progress towards goal: Pt receiving IV ATB. * Plan of Care - Cristóbal Becerra RN - 05/13/2025 4:43 PM EDT Problem: Pain Goal: Patient goal is pain score less than 4, able to rest, and participant in treatment plan as appropriate Description: INTERVENTIONS: 1. Encourage patient or legal hardware supplies sales representative to report early pain and ask [...] per policy 9. Teach patient or legal hardware supplies sales representative interventions for comforting Outcome: Progressing Note: [...] at the bedside 7. Instruct patient/ patient hardware supplies sales representative about use of safety devices 8. Include patient/ patient hardware supplies sales representative in decisions related to safety Outcome: [...] hygiene technique. 7. Identify and instruct patient/patient hardware supplies sales representative in use of appropriate isolation precautionsfor identified infection/symptoms. 8. Provide and discuss with patient/patient hardware supplies sales representative on educational MDRO sheet. 9. Encourage and monitor nutritional status daily and consult hospital superintendent if indicated. 10. Implement neutropenic guidelines as needed. Outcome: Progressing Note: Evaluation of progress towards goal: Isolation precautions followed per protocol. Equipment cleaned between patients. Handwashing protocol followed. [facility] Hospital course Narrative* Felix Hallman MD - 05/15/2025 2:11 PM EDT Images from the original note were not included. [facility] ATUL ZABALA INTERNAL MEDICINE [facility] - ACUTE CARE [facility] [address] [facility] [id number] Hospital Medicine Discharge Summary Patient: Cuca Dee Date of : 1945 Room: Encounter date: 05/15/25 DATE OF ADMISSION: 05/13/2025 DATE OF DISCHARGE:05/15/2025 DISCHARGE DIAGNOSES Principal Problem: Acute respiratory failure with hypoxia ([facility]) Active Problems: 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 mellitus ([facility]) Mixed diabetic hyperlipidemia associated with type 2 diabetes mellitus ([facility]) Obstructive sleep apnea syndrome Essential (primary) hypertension Acute on chronic diastolic congestive heart failure ([facility]) Stage 3b chronic kidney disease ([facility]) Type 2 diabetes mellitus with diabetic chronic kidney disease ([facility]) Iron deficiency anemia Hypomagnesemia Closed fracture of right hip ([facility]) Nondisplaced fracture of lesser trochanter of right femur, initial encounter for closed fracture ([facility]) CONSULTANTS None PCP: Pam Stinson, SALES REPRESENTATIVE [employer] PROCEDURES None HOSPITAL COURSE SUMMARY Per HPI: [...] admission. Patient he will be discharged to correction facility with 5 more days of doxycycline. [...] PT OT did see patient and recommended correction facility. Patient be discharged to correction facility today. Clinical concern for sepsis, no-sepsis [...] Intake/Output Summary (Last 24 hours) at 05/15/2025 5532 Last data filed at 05/15/2025 1328 Gross [...] Extra Tubes. Procedure Abnormality Status --------- ------ [facility] TOP[[id number]] Final result Please view results for these [...] Tubes. Procedure Abnormality Status --------- ------ [facility] TOP[[id number]] Final result Please view results for these [...] valve replacement. 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 Again [...] ovarian. There is partial visualization of a MARINE DIESEL MECH[employer]IC shunt and changes of aortic valve replacement. [...] KAIDEN Hopkins, 05/15/2025 5:24 PM [facility] 7AM-7PM & 7PM-7AM: EpicChat or [...] have escaped final proofreading. KAIDEN Hopkins 05/15/25 8322 Physician Attestation I, Felix Hallman MD, personally [...] SNF in stable condition. [facility] [id number] Progress note* Discharge Planning Note - Sheela Velásquez - 05/15/2025 1:59 PM EDT DISCHARGE PLANNING NOTE Prior Auth approved for admission to : [facility]/ [place], [place] (P# ; F# ) Approval # [id number] Valid for Dates: 05/15/2025 - 05/21/2025 [facility] [id number] Plan of care note* Plan of Care - Migue Douglas RN - 05/15/2025 1:54 PM EDT Problem: Pain Goal: Patient goal is pain score less than 4, able to rest, and participant in treatment plan as appropriate Description: INTERVENTIONS: 1. Encourage patient or legal hardware supplies sales representative to report early pain and ask [...] per policy 9. Teach patient or legal hardware supplies sales representative interventions for comforting Outcome: Progressing Note: [...] at the bedside 7. Instruct patient/ patient hardware supplies sales representative about use of safety devices 8. Include patient/ patient hardware supplies sales representative in decisions related to safety Outcome: [...] hygiene technique. 7. Identify and instruct patient/patient hardware supplies sales representative in use of appropriate isolation precautionsfor identified infection/symptoms. 8. Provide and discuss with patient/patient hardware supplies sales representative on educational MDRO sheet. 9. Encourage and monitor nutritional status daily and consult hospital superintendent if indicated. 10. Implement neutropenic guidelines as needed. Outcome: Progressing Note: Evaluation of progress towards goal: Pt afebrile at this time, continue to monitor for signs infection Problem: Knowledge Deficit Goal: Patient/patient hardware supplies sales representative demonstrates understanding of disease process, treatment [...] to next level of care provider (care center manager, PCP, home care). 5. Complete follow up [...] Collaborate with ancillary departments 14. Include patient/patient hardware supplies sales representative in decisions related to anxiety Outcome: [...] providing care 6. Collaborate with pastoral/spiritual care, public health social worker, mental health counselor as needed. 7. Instruct patient on diversional activities such as physical activity, distraction, and deep breathing exercises to assist with coping 8. Involve patient's hardware supplies sales representative in care Outcome: Progressing Note: Evaluation [...] be free from fall Description: Interventions: 1. [place] to environment 2. Hourly rounds addressing the [...] non-skid footwear 11. Teach patient and patient hardware supplies sales representative to maintain environment for safety and [...] (cane, walker) within reach 19. Request patient hardware supplies sales representative bring adaptive equipment/mobility aids from home or obtain and provide as needed 20. Consult pharmacy regarding effects of med's affecting mobility, cognition, and alternatives 21. Obtain physician order for PT if risk factors associated with mobility are present 22. Obtain physician order for OT as appropriate 23. Utilize diversional activities 24. Educate patient and patient hardware supplies sales representative how to maintain a safe environment during visitationtimes (notify nurse prior to leaving bedside) 25. Consider appropriateness of medical or non-medical billing representative 26. Set up voiding schedule as appropriate [...] supplement as ordered 13. Collaborate with clinical hospital superintendent 14. Include patient/ patient's hardware supplies sales representative in decisions related to nutrition Outcome: [...] to ensure perfusion and oxygenation and ventilation airpim07-01-2025 Progress note* PT/OT/TRANSPORTATION ASSOCIATE - Maryanne Hernandez, PT - 05/15/2025 9:51 AM EDT Physical Therapy Evaluation Discharge Recommendations for Safe Patient Transition Discharge Recommendations: Post acute - moderate Post Acute Moderate Rehab Needs: Recommend moderate intensity rehab, Tolerate 1- 2 hrs of therapy 3-5 days/wk, Subacute or chronic functional impairment Current Impairments Informing Therapy Recommendation: Ambulation status/safety, Cognition, Fall risk, ADL status, Endurance level Prop And Effects Designer Support for-: Mobility Deficits, ADL Deficits, Cognitive [...] gait belt, IV/midline Weight Bearing Status: WBAT Telemetry/Glucose And Syrup Weigher: Yes Oxygen Used: room air Other: fall risk Past Medical History: Diagnosis Date Anemia Arthritis Asthma very mild, no inhaler use Cataract Dental disease Depression Diabetes mellitus ([facility]) Diabetes mellitus type 2, controlled ([facility]) Encephalitis Foot fracture, left GERD (gastroesophageal reflux disease) Heart murmur HLD (hyperlipidemia) Hypertension Incontinence Injury of back Insulin dependent diabetes mellitus Kidney failure STAGE 4 Lumbar spondylolysis Murmur Obesity CHELSEA (obstructive sleep apnea) no machine Peptic ulceration Peripheral vascular disease Shortness of breath Stroke ([facility]) 02/27/2024 TIA (transient ischemic attack) Upper respiratory infection UTI (urinary tract infection) Visual impairment Wears dentures Past Surgical History: Procedure Laterality Date BREAST BIOPSY Right 03/01/2023 ULT BIOPSY CATARACT EXTRACTION SECTION SECTION 03/14/1974 EGD N/A 10/17/2019 Performed by Sarai Bell DO at [facility] H-PERCUTANEOUS CORONARY INTERVENTION HYSTEROSCOPY DILATION CURETTAGE MYOSURE N/A 01/29/2021 Performed by Jv Briones MD at [facility] INJECTION BLOCK EPIDURAL CAUDAL STEROID N/A 08/14/2022 Performed by Arnulfo Morgan MD at [facility] INJECTION BLOCK EPIDURAL CAUDAL STEROID N/A 06/06/2021 Performed by Arnulfo Morgan MD at [facility] INJECTION BLOCK EPIDURAL CAUDAL STEROID N/A 04/25/2021 Performed by Arnulfo Morgan MD at [facility] INJECTION CAUDAL EPIDURAL WITH CATHETER, STEROID N/A 05/03/2020 Performed by Arnulfo Morgan MD at [facility] INJECTION CAUDAL EPIDURAL WITH CATHETER, STEROID N/A 11/24/2019 Performed by Arnulfo Morgan MD at [facility] INJECTION CAUDAL EPIDURAL WITH CATHETER, STEROID N/A 04/21/2019 Performed by Arnulfo Morgan MD at [facility] INJECTION MEDIAL BRANCH NERVE BLOCK Bilateral L 4/5, 5/1 Bilateral 08/18/2019 Performed by Arnulfo Morgan MD at [facility] INJECTION MEDIAL BRANCH NERVE BLOCK Bilateral L 4/5, 5/1 Bilateral 06/23/2019 Performed by Arnulfo Morgan MD at [facility] IN[facility]CTION STEROID EPI 1 WITH SEDATION Right L 4, 5 NR Right 03/17/2019 Performed by Arnulfo Morgan MD at [facility] INJECTION STEROID EPI 1 WITH SEDATION: right L45 nroot Right 08/15/2018 Performed by Arnulfo Morgan MD at [facility] LEFT L4, AND 5 NERVE ROOT INJECTION 2 OF 2 Left 07/22/2018 Performed by Arnulfo Morgan MD at [facility] LEFT L4, AND L5 NERVE ROOT 1 OF 2 Left 07/04/2018 Performed by Arnulfo Morgan MD at [facility] SHUNT INSERTION TONSILLECTOMY AGE 4 Transcutaneous aortic valve replacement/Transfemoral/Kwan N/A 08/17/2023 Performed by Chava Norris MD at [facility] Valvuloplasty aortic N/A 06/03/2023 Performed by Chava Norris MD at [facility] Subjective Physical Therapy Comments: [...] Principal Problem: Acute respiratory failure with hypoxia ([facility]) Active Problems: 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 mellitus ([facility]) Mixed diabetic hyperlipidemia associated with type 2 diabetes mellitus ([facility]) Obstructive sleep apnea syndrome Essential (primary) hypertension Acute on chronic diastolic congestive heart failure ([facility]) Stage 3b chronic kidney disease ([facility] Type 2 diabetes mellitus with diabetic chronic kidney disease ([facility]) Iron deficiency anemia Hypomagnesemia Closed fracture of right hip ([facility]) Nondisplaced fracture of lesser trochanter of right femur, initial encounter for closed fracture ([facility]) Observe [employer] [id number] Progress note* PT/OT/TRANSPORTATION ASSOCIATE - Juana Ramsey OTR/Trice - 05/15/2025 9:05 AM EDT Occupational Therapy Evaluation Discharge Recommendations for Safe Patient Transition Discharge Recommendations: Post acute - moderate Post Acute Moderate Rehab Needs: Recommend moderate intensity rehab, Subacute or chronic functionalimpairment, Tolerate 1-2 hrs of therapy 3-5 days/wk Current Impairments Informing Therapy Recommendation: Ambulation status/safety, Cognition, Fall risk, ADL status, Endurance level Prop And Effects Designer Support for-: Mobility Deficits, ADL Deficits, Cognitive [...] 10/17/2019 Performed by Sarai Bell DO at [facility] H-PERCUTANEOUS CORONARY INTERVENTION HYSTEROSCOPY DILATION CURETTAGE MYOSURE N/A 01/29/2021 Performed by Jv Briones MD at [facility] INJECTION BLOCK EPIDURAL CAUDAL STEROID N/A 08/14/2022 Performed by Arnulfo Morgan MD at [facility] INJECTION BLOCK EPIDURAL CAUDAL STEROID N/A 06/06/2021 Performed by Arnulfo Morgan MD at [facility] INJECTION BLOCK EPIDURAL CAUDAL STEROID N/A 04/25/2021 Performed by Arnulfo Morgan MD at [facility] INJECTION CAUDAL EPIDURAL WITH CATHETER, STEROID N/A 05/03/2020 Performed by Arnulfo Morgan MD at [facility] INJECTION CAUDAL EPIDURAL WITH CATHETER, STEROID N/A 11/24/2019 Performed by Arnulfo Morgan MD at [facility] INJECTION CAUDAL EPIDURAL WITH CATHETER, STEROID N/A 04/21/2019 Performed by Arnulof Morgan MD at [facility] INJECTION MEDIAL BRANCH NERVE BLOCK Bilateral L 4/5, 5/1 Bilateral 08/18/2019 Performed by Arnulfo Morgan MD at [facility] INJECTION MEDIAL BRANCH NERVE BLOCK Bilateral L 4/5, 5/1 Bilateral 06/23/2019 Performed by Arnulfo Morgan MD at [facility] INJECTION STEROID EPI 1 WITH SEDATION Right L 4, 5 NR Right 03/17/2019 Performed by Arnulfo Morgan MD at [facility] INJECTION STEROID EPI 1 WITH SEDATION: right L45 nroot Right 08/15/2018 Performed by Arnulfo Morgan MD at [facility] LEFT L4, AND 5 NERVE ROOT INJECTION 2 OF 2 Left 07/22/2018 Performed by Arnulfo Morgan MD at [facility] LEFT L4, AND L5 NERVE ROOT 1 OF 2 Left 07/04/2018 Performed by Arnulfo Morgan MD at [facility] SHUNT INSERTION TONSILLECTOMY AGE 4 Transcutaneous aortic valve replacement/Transfemoral/Kwan N/A 08/17/2023 Performed by Chava Norris MD at [facility] Valvuloplasty aortic N/A 06/03/2023 Performed by Chava Norris MD at [facility] Past Medical History: Diagnosis Date Anemia Arthritis Asthma very mild, no inhaler use Cataract Dental disease Depression Diabetes mellitus ([facility]) Diabetes mellitus type 2, controlled ([facility]) Encephalitis Foot fracture, left GERD (gastroesophageal reflux disease) Heart murmur HLD (hyperlipidemia) Hypertension Incontinence Injury of back Insulin dependent diabetes mellitus Kidney failure STAGE 4 Lumbar spondylolysis Murmur Obesity CHELSEA (obstructive sleep apnea) no machine Peptic ulceration Peripheral vascular disease Shortness of breath Stroke ([facility]) 02/27/2024 TIA (transient ischemic attack) Upper respiratory [...] gait belt, IV/midline Weight Bearing Status: WBAT Telemetry/Glucose And Syrup Weigher: Yes Oxygen Used: room air Other: fall [...] in the community- [place] Homem[place] Assistance: Needs assistance (daugther and grandson [...] Deficit: R sock (due to pain) Other: marketing writer introduced slef role and goals, marketing writer zulma with patient. patient agreeable to eval. completes sponge bath while seated on edge of bed, changes gown once seated in chair. brekfast tray arrives and session terminated Home Management - IADL Other: marketing writer introduced slef role and goals, marketing writer zulma with patient. patient agreeable to [...] Principal Problem: Acute respiratory failure with hypoxia ([facility]) Active Problems: 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 mellitus ([facility]) Mixed diabetic hyperlipidemia associated with type 2 diabetes mellitus ([facility]) Obstructive sleep apnea syndrome Essential (primary) hypertension Acute on chronic diastolic congestive heart failure ([facility]) Stage 3b chronic kidney disease ([facility]) Type 2 diabetes mellitus with diabetic chronic kidney disease ([facility]) Iron deficiency anemia Hypomagnesemia Closed fracture of right hip ([facility]) Nondisplaced fracture of lesser trochanter of right femur, initial encounter for closed fracture ([facility]) [employer] Work Phone: 1(537) 926-847707-01-2025 Progress note* Discharge Planning Note - Purvi Cardenas RN - 05/15/2025 8:35 AM EDT DISCHARGE PLANNING NOTE Cuca Dee PT/OT reminded via secure chat that we need PT/OT notes to submit for SNF insurance authorization. Patient Discharge Plan: [facility] (accepted) and pending insurance authorization. Can't submit until we have PT/OT evaluation and recommendation. Patient is WBAT. Plan of Care: [facility] (SNF) [phone] Fax CRF at Discharge Follow up appointments: Orthopedics would like to see patient in two weeks. This was added to AVS for SNF to schedule for patient. - Purvi Cardenas RN 05/15/25 8:35 AM PT and OT notes completed. Tasked pre-certification team to begin insurance authorization for patient to go to [place]. Patient Discharge Plan: [facility] (accepted) and pending insurance authorization. Plan of Care: [facility] (SNF) [phone] Fax CRF at Discharge Follow up appointments: Orthopedics would like to see patient in two weeks. This was added to AVS for SNF to schedule for patient. - Purvi Cardenas RN 05/15/25 12:58 PM Insurance authorization received. Provider placed discharge order. Preadmission Screening & Resident Review (PASSR) PASSR completed via the [employer] Electronic Notification System) ODM 2213 (short form) completed and submitted? yes Is a Level II Evaluation required? no SNF notified on [facility] of PASSR completion. yes CRF sent via CarePort yes Patient Discharge Plan: [facility] at [facility] (accepted) and insurance authorization received. Plan of Care: [facility] (SNF) [phone] Fax CRF at Discharge Follow up appointments: Orthopedics would like to see patient in two weeks. This was added to AVS for SNF to schedule for patient. - Purvi Cardenas RN 05/15/25 2:51 PM [facility] [id number] Plan of care note* Plan of Care [...] at the bedside 7. Instruct patient/ patient hardware supplies sales representative about use of safety devices 8. Include patient/ patient hardware supplies sales representative in decisions related to safety Outcome: [...] breath sounds diminished, not in respiratory distress. [facility]06-30-2025 Hospital Discharge instructions* Appointments * Migue Douglas RN - 05/14/2025 2:00 PM EDT May 23, at 1 pm. NOM's orthopedic follow up. documented in this encounterSum[facility]06-[facility]25 Progress note* Wound Care - Yennifer Lloyd [...] Services withany new skin concerns. [id number] Progress note* Situational Awareness - Felix Hallman MD - 05/14/2025 1:[address] Joiner notified of this patient Patient has not established care with Dr. Joiner. Dr. Diane rutledge wouldlike us to continue medical care of this patient during hospital stay [facility]06-30-2025 Progress note* PT/OT/TRANSPORTATION ASSOCIATE - Juana Ramsey OTR/L - 05/14/2025 1:29 PM EDT Occupational Therapy OT Type of Visit: Medical deferral Reason For Medical Deferral: Provider input needed OT defers eval due to nondisplaced fracture of lesser trochanter of R femur, await ortho for WB status to ensure safe completion of ADL tasks. OT to continue to follow. [facility] Progress note* Discharge Planning Note - Purvi Cardenas RN - 05/14/2025 1:19 PM EDT Images from the original note were not included. Discharge Planning Assessment Cuca Dee Admit Status: Inpatient Meet: Yes Readmission Risk: 31%. Date of Admission: 05/13/2025 GMLOS: 4.6 days Target Discharge Date: 05/17/2025 Discharge Planning Assessment completed at bedside and via phone with patient's daughter, Ismael. Public Speaking Instructor identified self and role to the patient. [...] she lives at home with her daughter, Ismale and grandchild. She ambulates to with a [...] unit as she had a foul odor. Public Speaking Instructor spoke with daughter, Ismael. She is agreeable [...] were just approved for an aid through [employer]. However, there is no aid availability to send into the home yet. Public Speaking Instructor discusses with Ismael that we will haev [...] Services Nurse visit Community Agencies Currently Utilized Dba [Passport case filler and they plan to send an aidwhen they have availability.] Community Referrals / Resources Provided Denies needs Who is the existing DME Provider? [employer] ([employer]) ) Established DME Comments Walker, shower chair, [...] Requested Patient expects to be discharged to: correction care Does the patient wish to have family/friend/caregiver involved in their discharge planning? Yes Does the patient plan to return home to a community setting? No, patient to discharge to facility-based provider. See Discharge Disposition Discharge Disposition SNF Who is the existing DME Provider? [employer] ([employer]) ) Does the patient need discharge transportation arranged? Yes Transportation Arranged Ambulance Patient choice offered Patient declined List Provided Patient declined Patient Declined Other (must state reason) [Patient states she only wants to go to [facility]] IA Planning Complete Discharge Milestones Yes Pharmacy: [facility] PCP: Pam Stinson Consulting Providers this admission: Orthopedics for fracture Patient will make her own follow up appointments: no To be made by [facility] Patient Goals: Goals per daughter and patient to SNF (pt-stated) Evaluation of progress towards goal: Patient and daughter agree she will need skilled care as a result of the fracture she has. PT Recommends: Pending evaluation OT Recommends: Pending evaluation Patient denies need for correction facility list. She states she will not ever go to [facility] again. She will only go to [facility]. Tasked transition team to send referral. Plan to prevent readmission: To correction facility. As above lengthy discission with patient and daughter regarding the need for patient to be clean at home and take her showers and change her clothes. Patient/Family do not endorse any questions at this time. Patient Discharge Plan: [facility] at [facility] (accepted) and pending insurance authorization. Can't submit until we have PT/OT evaluation and recommendation. Patient is WBAT. Plan of Care: [facility] (SNF) [phone] Fax CRF at Discharge Follow up appointments: Orthopedics would like to see patient in two weeks. This was added to AVS for SNF to schedule for patient. Purvi Cardneas RN 05/14/25 1:25 PM [facility]06-30-2025 Consult note* Jh Schaefer, SALES REPRESENTATIVE [employer] - 05/14/2025 12:16 PM EDTAssociated Order(s): IP [...] Principal Problem Acute respiratory failure with hypoxia ([facility]) RT lesser trochanter fracture. PAST MEDICAL HISTORY: Past Medical History: Diagnosis Date Anemia Arthritis Asthma very mild, no inhaler use Cataract Dental disease Depression Diabetes mellitus ([facility]) Diabetes mellitus type 2, controlled ([facility]) Encephalitis Foot fracture, left GERD (gastroesophageal reflux disease) Heart murmur HLD (hyperlipidemia) Hypertension Incontinence Injury of back Insulin dependent diabetes mellitus Kidney failure STAGE 4 Lumbar spondylolysis Murmur Obesity CHELSEA (obstructive sleep apnea) no machine Peptic ulceration Peripheral vascular disease Shortness of breath Stroke ([facility]) 02/27/2024 TIA (transient ischemic attack) Upper respiratory infection UTI (urinary tract infection) Visual impairment Wears dentures PAST SURGICAL HISTORY: Past Surgical History: Procedure Laterality Date BREAST BIOPSY Right 03/01/2023 ULT BIOPSY CATARACT EXTRACTION SECTION SECTION 03/14/1974 EGD N/A 10/17/2019 Performed by Sarai Bell DO at [facility] H-PERCUTANEOUS CORONARY INTERVENTION HYSTEROSCOPY DILATION CURETTAGE MYOSURE N/A 01/29/2021 Performed by Jv Briones MD at [facility] INJECTION BLOCK EPIDURAL CAUDAL STEROID N/A 08/14/2022 Performed by Arnulfo Morgan MD at [facility] INJECTION BLOCK EPIDURAL CAUDAL STEROID N/A 06/06/2021 Performed by Arnulfo Morgan MD at [facility] INJECTION BLOCK EPIDURAL CAUDAL STEROID N/A 04/25/2021 Performed by Arnulfo Morgan MD at [facility] INJECTION CAUDAL EPIDURAL WITH CATHETER, STEROID N/A 05/03/2020 Performed by Arnulfo Morgan MD at [facility] INJECTION CAUDAL EPIDURAL WITH CATHETER, STEROID N/A 11/24/2019 Performed by Arnulfo Morgan MD at [facility] INJECTION CAUDAL EPIDURAL WITH CATHETER, STEROID N/A 04/21/2019 Performed by Arnulfo Morgan MD at [facility] INJECTION MEDIAL BRANCH NERVE BLOCK Bilateral L 4/5, 5/1 Bilateral 08/18/2019 Performed by Arnulfo Morgan MD at [facility] INJECTION MEDIAL BRANCH NERVE BLOCK Bilateral L 4/5, 5/1 Bilateral 06/23/2019 Performed by Arnulfo Morgan MD at [facility] INJECTION STEROID EPI 1 WITH SEDATION Right L 4, 5 NR Right 03/17/2019 Performed by Arnulfo Morgan MD at [facility] INJECTION STEROID EPI 1 WITH SEDATION: right L45 nroot Right 08/15/2018 Performed by Arnulfo Morgan MD at [facility] LEFT L4, AND 5 NERVE ROOT INJECTION 2 OF 2 Left 07/22/2018 Performed by Arnulfo Morgan MD at [facility] LEFT L4, AND L5 NERVE ROOT 1 OF 2 Left 07/04/2018 Performed by Arnulfo Morgan MD at [facility] SHUNT INSERTION TONSILLECTOMY AGE 4 Transcutaneous aortic valve replacement/Transfemoral/Kwan N/A 08/17/2023 Performed by Chava Norris MD at [facility] Valvuloplasty aortic N/A 06/03/2023 Performed by Chava Norris MD at [facility] ALLERGIES: No Known Allergies [...] 0 min Stress: Stress Concern Present (10/28/2024) [employer] [place] [employer] - Occupational Stress Questionnaire Feeling of Stress : To some extent Social Connections: Moderately Integrated (10/28/2024) Social Connection and Isolation Panel [NHANES] Frequency of Communication with Friends and Family: Never Frequency of Social Gatherings with Friends and Family: More than three times a week Attends Religion Services: More than 4 times per year [...] office to schedule prior to discharge at [phone]. Imaging CT hip right without contrast Result [...] Range Extra Tube Auto Resulted Extra Urine [place] Collection Time: 05/12/25 1:01 PM Specimen: Urine, Clean Catch Midstream Result Value Ref Range Extra Tube Auto Resulted Urine Culture Urine, Clean Catch Midstream Collection Time: 05/12/25 1:01 PM Specimen: Urine, Clean Catch Midstream Result Value Ref Range CULTURE RESULTS NO GROWTH AT <1000 CFU/mL POCT Nursing Urine Macroscopic UA Collection Time: 05/12/25 1:12 PM Result Value Ref Range POC Urine Specific [place] 1.015 1.010, 1.015, 1.020, 1.025 POC Urine [...] Abnormality Status --------- ------ Troponin I, High Sensiti...[[id number]] Abnormal Final result Troponin I, High Sensiti...[[id number]] Abnormal Final result Please view results for [...] Procedure Abnormality Status --------- ------ Light Blue Top[[id number]] Final result Please view results for these [...] to the algorithms linked below. Emergency Patient: [email or web address] Inpatient: [email or web address] Bedside Glucose *Place/Obtain serum glucose if >500 per glucometer. Collection Time: 05/13/25 2:39 PM Result Value Ref Range Bedside Glucose (POC) 384 (H) 65 - 99 mg/dL Extra Tubes Collection Time: 05/13/25 7:54 PM Narrative The following orders were created for panel order Extra Tubes. Procedure Abnormality Status --------- ------ PST TOP[[id number]] Final result Please view results for these [...] Procedure Component Value Units Date/Time Blood culture [[id number]] Collected: 05/13/25 1109 Specimen: Blood, Venous Updated: 05/14/25 1002 CULTURE RESULTS NO GROWTH <24 HRS Blood culture [[id number]] Collected: 05/13/25 1108 Specimen: Blood, Venous Updated: 05/14/25 1002 CULTURE RESULTS NO GROWTH <24 HRS Narrative: Only aerobic bottle received Urine Culture Urine, Clean Catch Midstream [[id number]] Collected: 05/12/25 1301 Specimen: Urine, Clean Catch Midstream Updated: 05/13/25 1839 CULTURE RESULTS NO GROWTH AT <1000 CFU/mL KAIDEN VAZQUEZ APRN-CNP 05/14/25 1231 [employer] Work Phone: 1(843) 496-255406-30-2025 Consult note* KAIDEN Vazquez - 05/14/2025 12:16 [...] use Cataract Dental disease Depression Diabetes mellitus ([facility]) Diabetes mellitus type 2, controlled ([facility]) Encephalitis Foot fracture, left GERD (gastroesophageal reflux disease) Heart murmur HLD (hyperlipidemia) Hypertension Incontinence Injury of back Insulin dependent diabetes mellitus Kidney failure STAGE 4 Lumbar spondylolysis Murmur Obesity CHELSEA (obstructive sleep apnea) no machine Peptic ulceration Peripheral vascular disease Shortness of breath Stroke ([facility]) 02/27/2024 TIA (transient ischemic attack) Upper respiratory infection UTI (urinary tract infection) Visual impairment Wears dentures PAST SURGICAL HISTORY: Past Surgical History: Procedure Laterality Date BREAST BIOPSY Right 03/01/2023 ULT BIOPSY CATARACT EXTRACTION SECTION SECTION 03/14/1974 EGD N/A 10/17/2019 Performed by Sarai Bell DO at [facility] H-PERCUTANEOUS CORONARY INTERVENTION HYSTEROSCOPY DILATION CURETTAGE MYOSURE N/A 01/29/2021 Performed by Jv Briones MD at [facility] INJECTION BLOCK EPIDURAL CAUDAL STEROID N/A 08/14/2022 Performed by Arnulfo Morgan MD at [facility] INJECTION BLOCK EPIDURAL CAUDAL STEROID N/A 06/06/2021 Performed by Arnulfo Morgan MD at [facility] IN[facility]CTION BLOCK EPIDURAL CAUDAL STEROID N/A 04/25/2021 Performed by Arnulfo Morgan MD at [facility] INJECTION CAUDAL EPIDURAL WITH CATHETER, STEROID N/A 05/03/2020 Performed by Arnulfo Morgan MD at [facility] INJECTION CAUDAL EPIDURAL WITH CATHETER, STEROID N/A 11/24/2019 Performed by Arnulfo Morgan MD at [facility] INJECTION CAUDAL EPIDURAL WITH CATHETER, STEROID N/A 04/21/2019 Performed by Arnulfo Morgan MD at [facility] INJECTION MEDIAL BRANCH NERVE BLOCK Bilateral L 4/5, 5/1 Bilateral 08/18/2019 Performed by Arnulfo Morgan MD at [facility] INJECTION MEDIAL BRANCH NERVE BLOCK Bilateral L 4/5, 5/1 Bilateral 06/23/2019 Performed by Arnulfo Morgan MD at [facility] INJECTION STEROID EPI 1 WITH SEDATION Right L 4, 5 NR Right 03/17/2019 Performed by Arnulfo Morgan MD at [facility] INJECTION STEROID EPI 1 WITH SEDATION: right L45 nroot Right 08/15/2018 Performed by Arnulfo Morgan MD at [facility] LEFT L4, AND 5 NERVE ROOT INJECTION 2 OF 2 Left 07/22/2018 Performed by Arnulfo Morgan MD at [facility] LEFT L4, AND L5 NERVE ROOT 1 OF 2 Left 07/04/2018 Performed by Arnulfo Morgan MD at [facility] SHUNT INSERTION TONSILLECTOMY AGE 4 Transcutaneous aortic valve replacement/Transfemoral/Kwan N/A 08/17/2023 Performed by Chava Norris MD at [facility] Valvuloplasty aortic N/A 06/03/2023 Performed by Chava Norris MD at [facility] ALLERGIES: No Known Allergies [...] 0 min Stress: Stress Concern Present (10/28/2024) [employer] [place] [employer] - Occupational Stress Questionnaire Feeling of Stress : To some extent Social Connections: Moderately Integrated (10/28/2024) Social Connection and Isolation Panel [NHANES] Frequency of Communication with Friends and Family: Never Frequency of Social Gatherings with Friends and Family: More than three times a week Attends Religion Services: More than 4 times per year [...] office to schedule prior to discharge at [phone]. [address] hip right without contrast Result [...] Range Extra Tube Auto Resulted Extra Urine [place] Collection Time: 05/12/25 1:01 PM Specimen: Urine, Clean Catch Midstream Result Value Ref Range Extra Tube Auto Resulted Urine Culture Urine, Clean Catch [place] Collection Time: 05/12/25 1:01 PM Specimen: Urine, Clean Catch Midstream Result Value Ref Range CULTURE RESULTS NO GROWTH AT <1000 CFU/mL POCT Nursing Urine Macroscopic UA Collection Time: 05/12/25 1:12 PM Result Value Ref Range POC Urine Specific [place] 1.015 1.010, 1.015, 1.020, 1.025 POC Urine [...] Abnormality Status --------- ------ Troponin I, High Sensiti...[[id number]] Abnormal Final result Troponin I, High Sensiti...[[id number]] Abnormal Final result Please view results for [...] Procedure Abnormality Status --------- ------ Light Blue Top[[id number]] Final result Please view results for these [...] to the algorithms linked below. Emergency Patient: [email or web address] Inpatient: [email or web address] Bedside Glucose *Place/Obtain serum glucose if >500 per glucometer. Collection Time: 05/13/25 2:39 PM Result Value Ref Range Bedside Glucose (POC) 384 (H) 65 - 99 mg/dL Extra Tubes Collection Time: 05/13/25 7:54 PM Narrative The following orders were created for panel order Extra Tubes. Procedure Abnormality Status --------- ------ PST TOP[[id number]] Final result Please view results for these [...] Procedure Component Value Units Date/Time Blood culture [[id number]] Collected: 05/13/25 1109 Specimen: Blood, Venous Updated: 05/14/25 1002 CULTURE RESULTS NO GROWTH <24 HRS Blood culture [[id number]] Collected: 05/13/25 1108 Specimen: Blood, Venous Updated: 05/14/25 1002 CULTURE RESULTS NO GROWTH <24 HRS Narrative: Only aerobic bottle received Urine Culture Urine, Clean Catch Midstream [[id number]] Collected: 05/12/25 1301 Specimen: Urine, Clean Catch Midstream Updated: 05/13/25 1839 CULTURE RESULTS NO GROWTH AT <1000 CFU/mL JH SCHAEFER, SALES REPRESENTATIVE [employer] Jh Schaefer APRN-[employer] 05/14/25 1231 * Joie Garcia, [facility] - 05/13/2025 2:51 PM EDTAssociated Order(s): [...] Procedure Component Value Units Date/Time Blood culture [[id number]] Collected: 05/13/25 1109 Specimen: Blood, Venous Updated: 05/13/25 112 Blood culture [[id number]] Collected: 05/13/25 1108 Specimen: Blood, Venous Updated: 05/13/25 1122 Urine Culture Urine, Clean Catch Midstream [[id number]] Collected: 05/12/25 1301 Specimen: Urine, Clean Catch [...] consulting. Joie Garcia RPH documented in this [facility] Progress note* Discharge Planning Note - Brii Manley - 05/14/2025 11:14 AM EDT DISCHARGE PLANNING NOTE Referral sent to. [facility]/ [facility], [place], [place] (P# ; F# ) [facility] [employer] [id number] Progress note* PT/OT/TRANSPORTATION ASSOCIATE - Maryanne Hernandez, PT - 05/14/2025 10:48 AM EDT Physical Therapy PT Type of Visit: (P) Medical deferral Reason For Medical Deferral: (P) Provider input needed (Await ortho consult for weightbearing status.) PT will continue to follow this patient. RN aware that therapy awaits weightbearing status. Thank you for this referral. [facility] [employer] [id number] Plan of care note* Plan of Care - Migue Douglas RN - 05/14/2025 10:47 AM EDT Problem: Pain Goal: Patient goal is pain score less than 4, able to rest, and participant in treatment plan as appropriate Description: INTERVENTIONS: 1. Encourage patient or legal hardware supplies sales representative to report early pain and ask [...] per policy 9. Teach patient or legal hardware supplies sales representative interventions for comforting Outcome: Progressing Note: [...] at the bedside 7. Instruct patient/ patient hardware supplies sales representative about use of safety devices 8. Include patient/ patient hardware supplies sales representative in decisions related to safety Outcome: [...] hygiene technique. 7. Identify and instruct patient/patient hardware supplies sales representative in use of appropriate isolation precautionsfor identified infection/symptoms. 8. Provide and discuss with patient/patient hardware supplies sales representative on educational MDRO sheet. 9. Encourage and monitor nutritional status daily and consult hospital superintendent if indicated. 10. Implement neutropenic guidelines as needed. Outcome: Progressing Note: Evaluation of progress towards goal: Pt afebrile at this time, continue to monitor for signs infection Problem: Knowledge Deficit Goal: Patient/patient hardware supplies sales representative demonstrates understanding of disease process, treatment [...] to next level of care provider (care center manager, PCP, home care). 5. Complete follow up [...] Collaborate with ancillary departments 14. Include patient/patient hardware supplies sales representative in decisions related to anxiety Outcome: [...] providing care 6. Collaborate with pastoral/spiritual care, public health social worker, mental health counselor as needed. 7. Instruct patient on diversional activities such as physical activity, distraction, and deep breathing exercises to assist with coping 8. Involve patient's hardware supplies sales representative in care Outcome: Progressing Note: Evaluation [...] be free from fall Description: Interventions: 1. [place] to environment 2. Hourly rounds addressing the [...] non-skid footwear 11. Teach patient and patient hardware supplies sales representative to maintain environment for safety and [...] (cane, walker) within reach 19. Request patient hardware supplies sales representative bring adaptive equipment/mobility aids from home or obtain and provide as needed 20. Consult pharmacy regarding effects of med's affecting mobility, cognition, and alternatives 21. Obtain physician order for PT if risk factors associated with mobility are present 22. Obtain physician order for OT as appropriate 23. Utilize diversional activities 24. Educate patient and patient hardware supplies sales representative how to maintain a safe environment during visitationtimes (notify nurse prior to leaving bedside) 25. Consider appropriateness of medical or non-medical billing representative 26. Set up voiding schedule as appropriate [...] supplement as ordered 13. Collaborate with clinical hospital superintendent 14. Include patient/ patient's hardware supplies sales representative in decisions related to nutrition Outcome: [...] skin protectant applied as needed, labs monitored. [facility]06-30-2025 History and physical note* Felix Hallman MD - 05/14/2025 8:34 AM EDT Images from the original note were not included. [facility] INTERNAL MEDICINE [facility] [address] [id number] Hospital Medicine History & Physical Patient: Cuca [...] Asthma, Cataract, Dental disease, Depression, Diabetes mellitus ([facility]), Diabetes mellitus type 2, controlled ([facility]), Encephalitis, Foot fracture, left, GERD (gastroesophageal reflux disease), Heart murmur, HLD (hyperlipidemia), Hypertens ion, Incontinence, Injury of back, Insulin dependent diabetes mellitus, Kidney failure, Lumbar spondylolysis, Murmur, Obesity, CHELSEA (obstructive sleep apnea), Peptic ulceration, Peripheral vascular disease, Shortness of breath, Stroke ([facility]) (02/27/2024), TIA (transient ischemic attack), Upper respiratory [...] Normal pulses. Comments: Sinus tachycardia noted on air sampling and monitoring heart rate of 104 Pulmonary: Effort: Pulmonary [...] Tubes. Procedure Abnormality Status --------- ------ PST TOP[[id number]] Final result Please view results for these [...] valve replacement. 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 Again [...] ovarian. There is partial visualization of a MARINE DIESEL MECHANIC shunt and changes of aortic valve replacement. All CT scans at this facility use dose modulation, iterative reconstruction, and/or weight based dosing when appropriate to reduce radiation dose to as low as reasonably achievable. Finalized by Laic Lima MD on 05/12/2025 12:37 PM X-ray [...] Principal Problem: Acute respiratory failure with hypoxia ([facility]) Active Problems: 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 mellitus ([facility]) Mixed diabetic hyperlipidemia associated with type 2 diabetes mellitus ([facility]) Obstructive sleep apnea syndrome Essential (primary) hypertension Acute on chronic diastolic congestive heart failure ([facility]) Stage 3b chronic kidney disease ([facility]) Type 2 diabetes mellitus with diabetic chronic kidney disease ([facility]) Iron deficiency anemia Hypomagnesemia Closed fracture of right hip ([facility]) Nondisplaced fracture of lesser trochanter of right femur, initial encounter for closed fracture ([facility]) ASSESSMENT & PLAN Acute respiratory failure with [...] and treat. DC planning: Discharge home versus correction facility in 1-2 days. Sepsis suspected, yes-without [...] required. Vj Gray APRN-BARTOLO, 05/14/2025 1:37 PM [facility] Internal Medicine 7AM-7PM & 7PM-7AM: EpicChat or [...] with a normal limit 1.05 on 08/23/2024. [facility]06-30-2025 History and physical note* Felix Hallman MD - 05/14/2025 8:34 AM EDT Images from the original note were not included. [facility] INTERNAL MEDICINE [facility] [address] [id number] [facility] Medicine History & Physical Patient: Cuca Dee [...] taking: Reported on 05/13/2025 08/24/24 Vj Gray APRN-CLOTH HAULER Code Status: Full Code Past Medical History: Patient has a past medical history of Anemia, Arthritis, Asthma, Cataract, Dental disease, Depression, Diabetes mellitus ([facility]), Diabetes mellitus type 2, controlled ([facility]), Encephalitis, Foot fracture, left, GERD (gastroesophageal reflux disease), Heart murmur, HLD (hyperlipidemia), Hypertens ion, Incontinence, Injury of back, Insulin dependent diabetes mellitus, Kidney failure, Lumbar spondylolysis, Murmur, Obesity, CHELSEA (obstructive sleep apnea), Peptic ulceration, Peripheral vascular disease, Shortness of breath, Stroke ([facility]) (02/27/2024), TIA (transient ischemic attack), Upper respiratory [...] Normal pulses. Comments: Sinus tachycardia noted on air sampling and monitoring heart rate of 104 Pulmonary: Effort: Pulmonary [...] Tubes. Procedure Abnormality Status --------- ------ PST TOP[[id number]] Final result Please view results for these [...] valve replacement. 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 Again [...] ovarian. There is partial visualization of a MARINE DIESEL MECHANIC shunt and changes of aortic valve replacement. [...] diabetes mellitus with diabetic chronic kidney disease ([facility]) Iron deficiency anemia Hypomagnesemia Closed fracture of right hip ([facility]) Nondisplaced fracture of lesser trochanter of right femur, initial encounter for closed fracture ([facility]) ASSESSMENT & PLAN Acute respiratory failure with [...] and treat. DC planning: Discharge home versus correction facility in 1-2 days. Sepsis suspected, yes-without [...] Hopkins, 05/14/2025 1:37 PM [facility] 7AM-7PM & 7PM-7AM: EpicChat or [...] limit 1.05 on 08/23/2024. documented in this encounterSum[facility] Plan of care note * Plan of Care - Genoveva Medley RN - 05/13/2025 11:41 PM EDT Problem: Pain Goal: Patient goal is pain score less than 4, able to rest, and participant in treatment plan as appropriate Description: INTERVENTIONS: 1. Encourage patient or legal hardware supplies sales representative to report early pain and ask [...] per policy 9. Teach patient or legal hardware supplies sales representative interventions for comforting Outcome: Progressing Note: [...] at the bedside 7. Instruct patient/ patient hardware supplies sales representative about use of safety devices 8. Include patient/ patient hardware supplies sales representative in decisions related to safety Outcome: [...] hygiene technique. 7. Identify and instruct patient/patient hardware supplies sales representative in use of appropriate isolation precautionsfor identified infection/symptoms. 8. Provide and discuss with patient/patient hardware supplies sales representative on educational MDRO sheet. 9. Encourage and monitor nutritional status daily and consult hospital superintendent if indicated. 10. Implement neutropenic guidelines as needed. Outcome: Progressing Note: Evaluation of progress towards goal: Pt receiving IV ATB. [id number] Nurse Note* Genoveva Medley RN - 05/13/2025 10:20 PM EDT Pt pulled put her IV and when marketing writer asked why she stated, I don't know, I can't stop picking. New IV placed-ultrasound guided. Education provided and teach back method used. Pt able to state why she should not remove the medical equipment. Pt has taken off oxygen and tele patches several times despite redirection. Tele sitter initiated. Bed remains locked and lowered. Bed alarm on and call light within reach. [facility]06-29-2025 Nurse Note* Genoveva Medley RN - 05/13/2025 10:20 PM EDT Pt pulled put her IV and when marketing writer asked why she stated, I don't [...] call light within reach. documented in this encounterSumma Health [facility]06-29-2025 Plan of care note * Plan of Care - Cristóbal Becerra RN - 05/13/2025 4:43 PM EDT Problem: Pain Goal: Patient goal is pain score less than 4, able to rest, and participant in treatment plan as appropriate Description: INTERVENTIONS: 1. Encourage patient or legal hardware supplies sales representative to report early pain and ask [...] per policy 9. Teach patient or legal hardware supplies sales representative interventions for comforting Outcome: Progressing Note: [...] at the bedside 7. Instruct patient/ patient hardware supplies sales representative about use of safety devices 8. Include patient/ patient hardware supplies sales representative in decisions related to safety Outcome: [...] hygiene technique. 7. Identify and instruct patient/patient hardware supplies sales representative in use of appropriate isolation precautionsfor identified infection/symptoms. 8. Provide and discuss with patient/patient hardware supplies sales representative on educational MDRO sheet. 9. Encourage and monitor nutritional status daily and consult hospital superintendent if indicated. 10. Implement neutropenic guidelines as needed. Outcome: Progressing Note: Evaluation of progress towards goal: Isolation precautions followed per protocol. Equipment cleaned between patients. Handwashing protocol followed. [facility]06-29-2025 Consult note* Joie Garcia, [facility] - 05/13/2025 2:51 PM EDTAssociated Order(s): [...] Procedure Component Value Units Date/Time Blood culture [[id number]] Collected: 05/13/25 1109 Specimen: Blood, Venous Updated: 05/13/25 112 Blood culture [[id number]] Collected: 05/13/25 1108 Specimen: Blood, Venous Updated: 05/13/25 1122 Urine Culture Urine, Clean Catch Midstream [[id number]] Collected: 05/12/25 1301 Specimen: Urine, Clean Catch [...] you for consulting. Joie Garcia RPH T [facility]06-29-2025 History of Present illness Narrative* Joie Garcia RPH - 05/13/2025 2:49 PM EDT Adjusted dose of Zosyn to 3.375grams every 8 hours for diagnosis of sepsis and crcl 29.6ml/min Joie Garcia PharmD [facility] documented in this encounterSumma Health [facility] Physician Emergency department Note* Jack Milligan DO - 05/13/2025 11:24 AM EDTAssociated Order(s): Critical Care Images from the original note were not included. [facility] Pt Name: Cuca Dee [...] use Cataract Dental disease Depression Diabetes mellitus ([facility]) Diabetes mellitus type 2, controlled ([facility]) Encephalitis Foot fracture, left GERD (gastroesophageal reflux disease) Heart murmur HLD (hyperlipidemia) Hypertension Incontinence Injury of back Insulin dependent diabetes mellitus Kidney failure STAGE 4 Lumbar spondylolysis Murmur Obesity CHELSEA (obstructive sleep apnea) no machine Peptic ulceration Peripheral vascular disease Shortness of breath Stroke ([facility]) 02/27/2024 TIA (transient ischemic attack) Upper respiratory infection UTI (urinary tract infection) Visual impairment Wears dentures Past Surgical History: Past Surgical History: Procedure Laterality Date BREAST BIOPSY Right 03/01/2023 ULT BIOPSY CATARACT EXTRACTION SECTION SECTION 03/14/1974 EGD N/A 10/17/2019 Performed by Sarai Bell DO at [facility] H-PERCUTANEOUS CORONARY INTERVENTION HYSTEROSCOPY DILATION CURETTAGE MYOSURE N/A 01/29/2021 Performed by Jv Briones MD at [facility] INJECTION BLOCK EPIDURAL CAUDAL STEROID N/A 08/14/2022 Performed by Arnulfo Morgan MD at [facility] INJECTION BLOCK EPIDURAL CAUDAL STEROID N/A 06/06/2021 Performed by Arnulfo Morgan MD at [facility] INJECTION BLOCK EPIDURAL CAUDAL STEROID N/A 04/25/2021 Performed by Arnulfo Morgan MD at [facility] INJECTION CAUDAL EPIDURAL WITH CATHETER, STEROID N/A 05/03/2020 Performed by Arnulfo Morgan MD at [facility] INJECTION CAUDAL EPIDURAL WITH CATHETER, STEROID N/A 11/24/2019 Performed by Arnulfo Morgan MD at [facility] INJECTION CAUDAL EPIDURAL WITH CATHETER, STEROID N/A 04/21/2019 Performed by Arnulfo Morgan MD at [facility] NERVE BLOCK Bilateral L 4/5, 5/1 Bilateral 08/18/2019 Performed by Arnulfo Morgan MD at [facility] INJECTION MEDIAL BRANCH NERVE BLOCK Bilateral L 4/5, 5/1 Bilateral 06/23/2019 Performed by Arnulfo Morgan MD at [facility] INJECTION STEROID EPI 1 WITH SEDATION Right L 4, 5 NR Right 03/17/2019 Performed by Arnulfo Morgan MD at [facility] INJECTION STEROID EPI 1 WITH SEDATION: right L45 nroot Right 08/15/2018 Performed by Arnulfo Morgan MD at [facility] LEFT L4, AND 5 NERVE ROOT INJECTION 2 OF 2 Left 07/22/2018 Performed by Arnulfo Morgan MD at [facility] LEFT L4, AND L5 NERVE ROOT 1 OF 2 Left 07/04/2018 Performed by Arnulfo Morgan MD at [facility] SHUNT INSERTION TONSILLECTOMY AGE 4 Transcutaneous aortic valve replacement/Transfemoral/Kwan N/A 08/17/2023 Performed by Chava Norris MD at [facility] Valvuloplasty aortic N/A 06/03/2023 Performed by Chava Norris MD at [facility] Family History: Family History [...] 0 min Stress: Stress Concern Present (10/28/2024) [place] [employer] - Occupational Stress Questionnaire Feeling of Stress : To some extent Social Connections: Moderately Integrated (10/28/2024) Social Connection and Isolation Panel [NHANES] Frequency of Communication with Friends and Family: Never Frequency of Social Gatherings with Friends and Family: More than three times a week Attends Religion Services: More than 4 times per year [...] provider(s): 11:[address] Martins resolution analyst for Dr Joiner, after discussion with the [...] Course: ED Course as of 05/15/25 1410 [place] May 13, 2025 1049 ECG notable for sinus tachycardia. LBBB. [SURINDER] ED Course User Index [SURINDER] Jack Milligan, Clinical Impressions as of 05/15/25 1410 Acute respiratory failure with hypoxia ([facility]) Nondisplaced fracture of lesser trochanter of right femur, initial encounter for closed fracture ([facility]) Generalized weakness Closed fracture of right hip, initial encounter ([facility]) Hypoxia Type 2 diabetes mellitus with hypoglycemia without coma, with long-term current use of insulin ([facility]) . ED Disposition ED Disposition Admit Date/Time [place] May 13, 2025 1:37 PM Comment At this time, the patient has objective evidence of an acute process that will likely require hospitalization for greater than 2 midnights. The patient will be admitted. Medications Prescribed this Visit This print group is not available in inpatient encounters. Please contact a outboard system operator. Shared/Split Visit 11:24 EDT Jazmine Huber (scribkyara), scribed for and in the presence of: Dr. Heri Milligan who performed the aboveservice. IDr. Milligan personally performed a [id number] diagnostic evaluation on this patient. I personallymade [...] 05/13/25 2121 Jack Milligan DO 05/14/25 2254 [facility]06-29[facility] Emergency department Note* Jack Milligan DO - 05/13/2025 11:24 AM EDTAssociated Order(s): Critical Care Images from the original note were not included. [facility] Pt Name: Cuca Dee [...] use Cataract Dental disease Depression Diabetes mellitus ([facility]) Diabetes mellitus type 2, controlled ([facility]) Encephalitis Foot fracture, left GERD (gastroesophageal reflux disease) Heart murmur HLD (hyperlipidemia) Hypertension Incontinence Injury of back Insulin dependent diabetes mellitus Kidney failure STAGE 4 Lumbar spondylolysis Murmur Obesity CHELSEA (obstructive sleep apnea) no machine Peptic ulceration Peripheral vascular disease Shortness of breath Stroke ([facility]) 02/27/2024 TIA (transient ischemic attack) Upper respiratory infection UTI (urinary tract infection) Visual impairment Wears dentures Past Surgical History: Past Surgical History: Procedure Laterality Date BREAST BIOPSY Right 03/01/2023 ULT BIOPSY CATARACT EXTRACTION SECTION SECTION 03/14/1974 EGD N/A 10/17/2019 Performed by Sarai Bell DO at [facility] H-PERCUTANEOUS CORONARY INTERVENTION HYSTEROSCOPY DILATION CURETTAGE MYOSURE N/A 01/29/2021 Performed by Jv Briones MD at [facility] INJECTION BLOCK EPIDURAL CAUDAL STEROID N/A 08/14/2022 Performed by Arnulfo Morgan MD at [facility] INJECTION BLOCK EPIDURAL CAUDAL STEROID N/A 06/06/2021 Performed by Arnulfo Morgan MD at [facility] INJECTION BLOCK EPIDURAL CAUDAL STEROID N/A 04/25/2021 Performed by Arnulfo Morgan MD at [facility] INJECTION CAUDAL EPIDURAL WITH CATHETER, STEROID N/A 05/03/2020 Performed by Arnulfo Morgan MD at [facility] INJECTION CAUDAL EPIDURAL WITH CATHETER, STEROID N/A 11/24/2019 Performed by Arnulfo Morgan MD at [facility] INJECTION CAUDAL EPIDURAL WITH CATHETER, STEROID N/A 04/21/2019 Performed by Arnulfo Morgan MD at [facility] INJECTION MEDIAL BRANCH NERVE BLOCK Bilateral L 4/5, 5/1 Bilateral 08/18/2019 Performed by Arnulfo Morgan MD at [facility] INJECTION MEDIAL BRANCH NERVE BLOCK Bilateral L 4/5, 5/1 Bilateral 06/23/2019 Performed by Arnulfo Morgan MD at [facility] INJECTION STEROID EPI 1 WITH SEDATION Right L 4, 5 NR Right 03/17/2019 Performed by Arnulfo Morgan MD at [facility] INJECTION STEROID EPI 1 WITH SEDATION: right L45 nroot Right 08/15/2018 Performed by Arnulfo Morgan MD at [facility] LEFT L4, AND 5 NERVE ROOT INJECTION 2 OF 2 Left 07/22/2018 Performed by Arnulfo Morgan MD at [facility] LEFT L4, AND L5 NERVE ROOT 1 OF 2 Left 07/04/2018 Performed by Arnulfo Morgan MD at [facility] SHUNT INSERTION TONSILLECTOMY AGE 4 Transcutaneous aortic valve replacement/Transfemoral/Kwan N/A 08/17/2023 Performed by Chava Norris MD at [facility] Valvuloplasty aortic N/A 06/03/2023 Performed by Chava Norris MD at [facility] Family History: Family History [...] 0 min Stress: Stress Concern Present (10/28/2024) [employer] [employer] - Occupational Stress Questionnaire Feeling of Stress : To some extent Social Connections: Moderately Integrated (10/28/2024) Social Connection and Isolation Panel [NHANES] Frequency of Communication with Friends and Family: Never Frequency of Social Gatherings with Friends and Family: More than three times a week Attends Religion Services: More than 4 times per year [...] provider(s): 11:[address] Martins resolution analyst for Dr Joiner, after discussion with the [...] 05/15/25 1410 Acute respiratory failure with hypoxia ([facility]) Nondisplaced fracture of lesser trochanter of right femur, initial encounter for closed fracture ([facility]) Generalized weakness Closed fracture of right hip, initial encounter ([facility]) Hypoxia Type 2 diabetes mellitus with hypoglycemia without coma, with long-term current use of insulin ([facility]) . ED Disposition ED Disposition Admit Date/Time Sun May 13, 2025 1:37 PM Comment At this time, the patient has objective evidence of an acute process that will likely require hospitalization for greater than 2 midnights. The patient will be admitted. Medications Prescribed this Visit This print group is not available in inpatient encounters. Please contact a outboard system operator. Shared/Split Visit 11:24 EDT Jazmine Huber (scribe), scribed for and in the presence of: Dr. Heri Milligan who performed the aboveservice. IDr. Milligan personally performed a [id number] diagnostic evaluation on this patient. I personallymade [...] mis-transcribed. Jazmine Jimenez 05/13/25 1128 Jazmine Bustillo, ALICE-CLOTH HAULER 05/13/25 1200 Jazmine Bustillo, SALES REPRESENTATIVE MEATS-CLOTH HAULER 05/13/25 1255 Jazmine Bustillo, SALES REPRESENTATIVE MEATS-CLOTH HAULER 05/13/25 1305 Jazmine Bustillo, SALES REPRESENTATIVE MEATS-CLOTH HAULER 05/13/25 1341 KAIDEN Phillips 05/13/251 Jack Milligan DO 05/14/25 2254 documented in this encounterSumma Health [facility] Note Procedure: Chest x-ray performed Number of views:1 History:Shortness of breath Comparison:04/28/2025 Findings: The heart and lungs show no acute findings, and the mediastinum and stanley are grossly negative . Tube overlying right chest stable. Impression: 1. No acute change. Finalized by Berry Wyman MD on 05/13/2025 11:01 [id number] Note Division of Infectious Diseases - Outpatient [...] previously underwent a TAVR and has a MARINE DIESEL MECHANIC shunt for NPH. She presented to the [...] GERD (gastroesophageal reflux disease) Hypertension Ischemic stroke ([facility]) 02/2024 seen at [facility] NPH (normal pressure hydrocephalus) ([facility]) PVD (peripheral vascular disease) Sleep apnea Past [...] Resource Strain: Medium Risk (10/28/2024) Received from [facility] Overall Financial Resource Strain (CARDIA) Difficulty of Paying Living Expenses: Somewhat hard Food Insecurity: No Food Insecurity (04/04/2025) Received from [employer] [facility] Hunger Screening Within the past 12 months we worried whether our food would run out before we got money to buy more.: Never True Within the past 12 months the food we bought just didn't last and we didn't have money to get more.: Never True Transportation Needs: No Transportation Needs (03/16/2025) Received from [employer] [facility] [employer] PRAPARE - Transportation Lack of Transportation (Medical): No Lack of Transportation (Non-Medical): No Physical Activity: Inactive (10/28/2024) Received from [facility] Exercise Vital Sign Days of Exercise per Week: 0 days Minutes of Exercise per Session: 0 min Stress: Stress Concern Present (10/28/2024) Received from [facility] [place] [employer] - Occupational Stress Questionnaire Feeling of Stress : To some extent Social Connections: Moderately Integrated (10/28/2024) Received from [facility] Social Connection and Isolation Panel [NHANES] Frequency of Communication with Friends and Family: Never Frequency of Social Gatherings with Friends and Family: More than three times a week Attends Religion Services: More than 4 times per year [...] on file Housing Stability: (more content not included)...[facility]05-21-2025 History of Present illness Narrative* Pam Stinson APRN-CLOTH HAULER - 04/04/2025 9:00 AM EDT Images from the original note were not included. [address] [facility] [id number] SUBJECTIVE: Patient ID: Cuca Dee [...] home. Patient and daughter have discussed possible senior living placement as well but this is notcost [...] family history. Past treatments include beta blockers, JNO inhibitors and diuretics. The current treatment provides [...] 10/17/2019 Performed by Sarai Bell DO at [facility] H-PERCUTANEOUS CORONARY INTERVENTION HYSTEROSCOPY DILATION CURETTAGE MYOSURE N/A 01/29/2021 Performed by Jv Briones MD at [facility] INJECTION BLOCK EPIDURAL CAUDAL STEROID N/A 08/14/2022 Performed by Arnulfo Morgan MD at [facility] INJECTION BLOCK EPIDURAL CAUDAL STEROID N/A 06/06/2021 Performed by Arnulfo Morgan MD at [facility] INJECTION BLOCK EPIDURAL CAUDAL STEROID N/A 04/25/2021 Performed by Arnulfo Morgan MD at [facility] INJECTION CAUDAL EPIDURAL WITH CATHETER, STEROID N/A 05/03/2020 Performed by Arnulfo Morgan MD at [facility] INJECTION CAUDAL EPIDURAL WITH CATHETER, STEROID N/A 11/24/2019 Performed by Arnulfo Morgan MD at [facility] INJECTION CAUDAL EPIDURAL WITH CATHETER, STEROID N/A 04/21/2019 Performed by Arnulfo Morgan MD at [facility] MEDIAL BRANCH NERVE BLOCK Bilateral L 4/5, 5/1 Bilateral 08/18/2019 Performed by Arnulfo Morgan MD at [facility] INJECTION MEDIAL BRANCH NERVE BLOCK Bilateral L 4/5, 5/1 Bilateral 06/23/2019 Performed by Arnulfo Morgan MD at [facility] INJECTION STEROID EPI 1 WITH SEDATION Right L 4, 5 NR Right 03/17/2019 Performed by Arnulfo Morgan MD at [facility] INJECTION STEROID EPI 1 WITH SEDATION: right L45 nroot Right 08/15/2018 Performed by Arnulfo Morgan MD at [facility] LEFT L4, AND 5 NERVE ROOT INJECTION 2 OF 2 Left 07/22/2018 Performed by Arnulfo Morgan MD at [facility] LEFT L4, AND L5 NERVE ROOT 1 OF 2 Left 07/04/2018 Performed by Arnulfo Morgan MD at [facility] SHUNT INSERTION TONSILLECTOMY AGE 4 Transcutaneous aortic valve replacement/Transfemoral/Kwan N/A 08/17/2023 Performed by Chava Norris MD at [facility] Valvuloplasty aortic N/A 06/03/2023 Performed by Chava Norris MD at [facility] Past Medical History: Diagnosis Date Anemia Arthritis Asthma very mild, no inhaler use Cataract Dental disease Depression Diabetes mellitus ([facility]) Diabetes mellitus type 2, controlled ([facility]) Encephalitis Foot fracture, left GERD (gastroesophageal reflux disease) Heart murmur HLD (hyperlipidemia) Hypertension Incontinence Injury of back Insulin dependent diabetes mellitus Kidney failure STAGE 4 Lumbar spondylolysis Murmur Obesity CHELSEA (obstructive sleep apnea) no machine Peptic ulceration Peripheral vascular disease Shortness of breath Stroke ([facility]) 02/27/2024 TIA (transient ischemic attack) Upper respiratory [...] Type 2 DM -Managed by endocrine in [place], Dr. Majano. She believes her A1c is [...] KAIDEN Werner 04/04/25 1537 documented in this encounterSum[facility]05-20-[facility]25 History of Present illness Narrative* Fátima Grajeda [...] access. Patient discharged in stable condition to [facility] in care of her daughter. documented in this encounterSumma Health [facility] Campus05-18-2025 History of Present illness Narrative* Prosper Loyd RN - 04/01/2025 8:00 AM EDT Pt here for IV daptomycin. After multiple IV attempts. Unable to obtain IV access. Daughter states pt is not drinking much fluids. Encouraged to hydrate and will re attempt for IV daptomycin as scheduled on Wednesday. Pt and daughter agree and v/u. documented in this encounterSumma Health [facility] Campus05-16-2025 History of Present illness Narrative* Abeba Monk RN - 03/30/2025 8:00 AM EDT Pt arrived in her w/c with her daughter. PIV working well. Pt c/o nausea which subsided with drinking Starry. Daptomycin infused w/o difficulty. PIV removed afterwards. Pt and daughter left to returnSay. documented in this encounterSumma Health [facility]05-14-2025 History of Present illness Narrative* Prosper Loyd [...] stable condition with daughter. documented in this encounterSumma Health [facility] Campus05-12-2025 History of Present illness Narrative* Mary Mohan RN - 03/26/2025 9:00 AM EDT The patient is here today for Daptomycin She comes in with walking with a Rolator PICC line in place, brisk blood return noted Daptomycin started and completed over 30 min PICC line dressing change completed Patient tolerated well Patient discharged in stable condition to daughter documented in this encounterSumma Health [facility]05-10-2025 History of Present illness Narrative* Mary Mohan [...] stable condition to daughter documented in this encounterSumma Health [facility]05-08-2025 History of Present illness Narrative* Chloe Domingo [...] understanding of future appointments. documented in this encounterSumma Health [facility] Campus05-06-2025 History of Present illness Narrative* MANAS Mendoza - 03/20/2025 9:21 AM EDT Consult received on ambulatory infusion patient to assist with transportation resources for IV AB infusion. Chart reviewed. Public Speaking Instructor met with pleasant pt & her daughter Ileana, introduced self & role. Ileana informs [employer] is not able to provide transportation on Wednesday. Ileana is unexpectedly without a vehicle, her son does not drive, pt said she's unsure if her brother would assistas she's not spoken with him for a while. They have a friend who assisted with transportation todayhowever her time is limited; neighbors are not an option. Public Speaking Instructor notes pt [place], informed pt & daughter that some plans offer medical appointment transportation. Ileana informs [facility]; marketing writer offered Access to Care phone number [...] due possibly somethi ng about utility bills. Public Speaking Instructor encouraged pt/Ileana to re-apply for Medicaid. Pt has medical bills; educated on [employer] & provided [facility] [employer] name/contact information to reach out for assistance. Educated on [employer] Services, how to go about to requestin home assessment; PASSPORT information sheet provided. Provided [employer] Wrong [employer] info eet for area resources; pt declined [employer] stating she has booklet. Ileanacontacting [employer] Medicare transport services at this time to arrange transportation. Provided writers contact information, marketing writer available if needed. Message to Ambulatory RN CN at PCP office requesting follow up with patient. documented in this encounterSumma Health Akron CampusCaseRev [facility] [id number] History of Present illness Narrative* Rosario Strong [...] has transportation lined up. documented in this encounterSumma Health Akron CampusCaseRev [facility] [id number] History of Present illness Narrative* Fátima Grajeda [...] daughter, to private vehicle. documented in this encounterSumma Health Ak[facility] Campus04-28-2025 History of Present illness Narrative* Mary Mohan [...] stable condition to daughter documented in this encounterSumma Health Akron Campus04-24-2025 Miscellaneous Notes* Telephone Encounter - Matilde Anderson - 03/08/2025 12:28 PM EDT Called to schedule new pt appt and was informed that the pt was already seeing nephrology. documented in this encounterSumma Health Akron Campus04-24-2025 Telephone encounter Note* Telephone Encounter - Matilde Anderson - 03/08/2025 12:28 PM EDT Called to schedule new pt appt and was informed that the pt was already seeing nephrology. [facility]04-06-2025 Miscellaneous Notes* Telephone Encounter - Kimberley Escudero - 02/18/2025 12:29 PM EDT Contract: [phone] [facility] [phone] re critical lab Secure chat Rosario documented in this encounterSumma Health Ak[facility] Campus04-06-2025 Telephone encounter Note* Telephone Encounter - Kimberley Escudero - 02/18/2025 12:29 PM EDT Contract: [phone] [facility] [phone] re critical lab Secure chat Rosario [facility]03-13-2025 History of Present illness Narrative* Casimiro Muñoz MD - 01/25/2025 2:15 PM EDT Images from the original note were not included. [facility] 01/25/25 Cuca Dee is a 79 y.o. year old female seen today in the oncology clinic. Chief Complaint Patient presents with Follow-up History of Present Illness: Mrs. Dee is a 79 y.o. female with history of aortic valve stenosis, she had PCI earlier in the year at [facility] for coronary disease. during the cardiac [...] mammary carcinoma, grade 2, ER strongly positive RI moderately positive and [id number]. There was also suspicious spine lesion, MRI [...] use Cataract Dental disease Depression Diabetes mellitus ([facility]) Diabetes mellitus type 2, controlled ([facility]) Encephalitis Foot fracture, left GERD (gastroesophageal reflux disease) Heart murmur HLD (hyperlipidemia) Hypertension Incontinence Injury of back Insulin dependent diabetes mellitus Kidney failure STAGE 4 Lumbar spondylolysis Murmur Obesity CHELSEA (obstructive sleep apnea) no machine Peptic ulceration Peripheral vascular disease ([facility]) Shortness of breath Stroke ([facility]) 02/27/2024 TIA (transient ischemic attack) Upper respiratory infection UTI (urinary tract infection) Visual impairment Wears dentures Past Surgical History: Procedure Laterality Date BREAST BIOPSY Right 03/01/2023 ULT BIOPSY CATARACT EXTRACTION SECTION SECTION 03/14/1974 EGD N/A 10/17/2019 Performed by Sarai Bell DO at [facility] H-PERCUTANEOUS CORONARY INTERVENTION HYSTEROSCOPY DILATION CURETTAGE MYOSURE N/A 01/29/2021 Performed by Jv Briones MD at [facility] INJECTION BLOCK EPIDURAL CAUDAL STEROID N/A 08/14/2022 Performed by Arnulfo Morgan MD at [facility] INJECTION BLOCK EPIDURAL CAUDAL STEROID N/A 06/06/2021 Performed by Arnulfo Morgan MD at [facility] INJECTION BLOCK EPIDURAL CAUDAL STEROID N/A 04/25/2021 Performed by Arnulfo Morgan MD at [facility] INJECTION CAUDAL EPIDURAL WITH CATHETER, STEROID N/A 05/03/2020 Performed by Arnulfo Morgan MD at [facility] INJECTION CAUDAL EPIDURAL WITH CATHETER, STEROID N/A 11/24/2019 Performed by Arnulfo Morgan MD at [facility] INJECTION CAUDAL EPIDURAL WITH CATHETER, STEROID N/A 04/21/2019 Performed by Arnulfo Morgan MD at [facility] INJECTION MEDIAL BRANCH NERVE BLOCK Bilateral L 4/5, 5/1 Bilateral 08/18/2019 Performed by Arnulfo Morgan MD at [facility] MEDIAL BRANCH NERVE BLOCK Bilateral L 4/5, 5/1 Bilateral 06/23/2019 Performed by Arnulfo Morgan MD at [facility] STEROID EPI 1 WITH SEDATION Right L 4, 5 NR Right 03/17/2019 Performed by Arnulfo Morgan MD at [facility] INJECTION STEROID EPI 1 WITH SEDATION: right L45 nroot Right 08/15/2018 Performed by Arnulfo Morgan MD at [facility] LEFT L4, AND 5 NERVE ROOT INJECTION 2 OF 2 Left 07/22/2018 Performed by Arnulfo Morgan MD at [facility] LEFT L4, AND L5 NERVE ROOT 1 OF 2 Left 07/04/2018 Performed by Arnulfo Morgan MD at [facility] SHUNT INSERTION TONSILLECTOMY AGE 4 Transcutaneous aortic valve replacement/Transfemoral/Kwan N/A 08/17/2023 Performed by Chava Norris MD at [facility]ARD[facility] CATH LABS Valvuloplasty aortic N/A 06/03/2023 Performed by Chava Norris MD at [facility]ATH [facility] Family History Problem Relation [...] 0 min Stress: Stress Concern Present (10/28/2024) [employer] [place] [employer] - Occupational Stress Questionnaire Feeling of Stress : To some extent Social Connections: Moderately Integrated (10/28/2024) Social Connection and Isolation Panel [NHANES] Frequency of Communication with Friends and Family: Never Frequency of Social Gatherings with Friends and Family: More than three times a week Attends Religion Services: More than 4 times per year [...] hyperlipidemia associated with type 2 diabetes mellitus ([facility]) Dose: 40 mg Signed by: KAIDEN Santana 40 mg, oral, Nightly Commonly known as: LIPITOR blood-glucose meter misc Quantity: 1 each Refills: 0 Doctor's comments: Whatever covered by insurance For diagnoses: Controlled type 2 diabetes mellitus with diabetic nephropathy, without long-term current use of insulin ([facility]) Signed by: KAIDEN Santana Monitor blood sugars four times daily and as needed DEXCOM G7 DIRECTOR FOOD AND BEVERAGE misc Refills: 0 Generic drug: blood-glucose meter,continuous DEXCOM G7 SENSOR device Refills: 0 Generic drug: blood-glucose sensor furosemide 20 mg tablet Refills: 0 Dose: 20 mg Commonly known as: LASIX gabapentin 300 mg capsule Quantity: 180 capsule Refills: 1 Doctor's comments: 90 Day Supply with one refill For diagnoses: 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 mellitus ([facility]) Dose: 300 mg Signed by: KAIDEN Santana [...] nephropathy, without long-term current use of insulin ([facility]) Signed by: KAIDEN Santana Monitor blood sugars [...] to ensure the accuracy of this automated nutrition worker, some errors in nutrition worker may have occurred. CC: Patient Care Team: KAIDEN Werner as PCP - General (Family Medicine) John Quiles MD (Nephrology) KAIDEN Hsu as Nurse Practitioner (Pulmonary Medicine) Madison Ye MD as Referring Physician (Endocrinology, Diabetes & Metabolism) Casimiro Muñoz MD as Consulting Physician (Hematology) PCP:Pam Stinson Referring MD: Pam Stinson AP* documented in this encounterSumma Health [facility] Campus03-13-2025 Instructions* Patient Instructions* Casimiro Muñoz MD - 01/25/2025 2:15 PM EDT PET scan now. Bilateral screening mammogram. F/u in 3 months, CBC, CMP, CA 15-3, CA 27.29. documented in this encounterSumma Health [facility] Campus03-10-2025 History of Present illness Narrative* Pam Stinson, ALICE-CLOTH HAULER - 01/22/2025 1:40 PM EDT Images from the original note were not included. [address] [facility] [id number] SUBJECTIVE: Patient ID: Cuca Dee [...] 10/17/2019 Performed by Sarai Bell DO at [facility] H-PERCUTANEOUS CORONARY INTERVENTION HYSTEROSCOPY DILATION CURETTAGE MYOSURE N/A 01/29/2021 Performed by Jv Briones MD at [facility] INJECTION BLOCK EPIDURAL CAUDAL STEROID N/A 08/14/2022 Performed by Arnulfo Morgan MD at [facility] INJECTION BLOCK EPIDURAL CAUDAL STEROID N/A 06/06/2021 Performed by Arnulfo Morgan MD at [facility] INJECTION BLOCK EPIDURAL CAUDAL STEROID N/A 04/25/2021 Performed by Arnulfo Morgan MD at [facility] INJECTION CAUDAL EPIDURAL WITH CATHETER, STEROID N/A 05/03/2020 Performed by Arnulfo Morgan MD at [facility] INJECTION CAUDAL EPIDURAL WITH CATHETER, STEROID N/A 11/24/2019 Performed by Arnulfo Morgan MD at [facility] INJECTION CAUDAL EPIDURAL WITH CATHETER, STEROID N/A 04/21/2019 Performed by Arnulfo Morgan MD at [facility] INJECTION MEDIAL BRANCH NERVE BLOCK Bilateral L 4/5, 5/1 Bilateral 08/18/2019 Performed by Arnulfo Morgan MD at [facility] INJECTION MEDIAL BRANCH NERVE BLOCK Bilateral L 4/5, 5/1 Bilateral 06/23/2019 Performed by Arnulfo Morgan MD at [facility] STEROID EPI 1 WITH SEDATION Right L 4, 5 NR Right 03/17/2019 Performed by Arnulfo Morgan MD at [facility] INJECTION STEROID EPI 1 WITH SEDATION: right L45 nroot Right 08/15/2018 Performed by Arnulfo Morgan MD at [facility] LEFT L4, AND 5 NERVE ROOT INJECTION 2 OF 2 Left 07/22/2018 Performed by Arnulfo Morgan MD at [facility] LEFT L4, AND L5 NERVE ROOT 1 OF 2 Left 07/04/2018 Performed by Arnulfo Morgan MD at [facility] SHUNT INSERTION TONSILLECTOMY AGE 4 Transcutaneous aortic valve replacement/Transfemoral/Kwan N/A 08/17/2023 Performed by Chava Norris MD at [facility]ATH [facility] Valvuloplasty aortic N/A 06/03/2023 Performed by Chava Norris MD at [facility]ATH LABS Past Medical History: Diagnosis Date Anemia Arthritis Asthma very mild, no inhaler use Cataract Dental disease Depression Diabetes mellitus ([facility]) Diabetes mellitus type 2, controlled ([facility]) Encephalitis Foot fracture, left GERD (gastroesophageal reflux disease) Heart murmur HLD (hyperlipidemia) Hypertension Incontinence Injury of back Insulin dependent diabetes mellitus Kidney failure STAGE 4 Lumbar spondylolysis Murmur Obesity CHELSEA (obstructive sleep apnea) no machine Peptic ulceration Peripheral vascular disease ([facility]) Shortness of breath Stroke ([facility]) 02/27/2024 TIA (transient ischemic attack) Upper respiratory [...] of recurrent major depressive disorder ([facility]) Stage 3b chronic kidney disease ([facility]) CKD stage 3b Stable Is monitored by [...] KAIDEN Werner 01/22/25 1658 documented in this encounterSumma Health [facility]ron Campus03-06-2025 Evaluation note* Type Assessment Date assessment Proliferative [...] eye: H35.372. Left CV Physicians Work Phone: [phone] 696-291003-06-2025 History of Present illness Narrative* Encounter Date Complaint History Of Prese nt Illness AMD The 79 year old female presents for evaluation of AMD in the right and left eyes. Patient states vision stables. Patient Denies any new flashes, floaters, or discomfort. Patient does not use drops at home. [facility] Physicians Work Phone: [phone]) 892-448603-06-2025 Instructions* Date Instruction Additional Infor tabby Impression/Plan [...] to Macular Edema CVP Physicians Work Phone: [phone] 195-841101-14-2025 History of Present illness Narrative* KAIDEN Werner - 11/28/2024 2:40 PM EST Images from the original note were not included. [address] [place] [address] SUBJECTIVE: Patient ID: Cuca Dee is a 79 y.o. female. Chief Complaint Patient presents with tcm Dec, Domingo Villatoro Presented to the ER on November 09, 2024 with complaints of generalized fatigue and weakness for several days. Troponin was noted to be elevated.Cardiology consulted. Echocardiogram results showed normal LV and RV systolic function. She did not report chest pain. Was on air sampling and monitoring for durationof observation. Followed up outpatient with cardiology on 11/24/24. No new changes. She was noted to have UTI. Was treated with Rocephin and discharged with cephalexin. She has been seen multiple times over the past two months for recurrent UTIs at [place] and [facility] ER. Adult Protective Services was notified at one point for concern patient may be sitting in soiled brief for se days. Patient and daughter state this has not been occurring. Last seen in ER was on 11/19/24 at [facility]. Patient thought she had another UTI. [...] were unaware not changing adapter weekly per automatic head sawyer recommendation may be contributing to reoccurring UTI's. Is Type 2 DM, has upcoming appointment with Dr. Majano, nuclear fuels reclamation engineer next week. The following portions of the patient's history were reviewed and updated as appropriate: allergies, current medications, past family history, past medical history, past social history, past surgicalhistory and problem list. Past Surgical History: Procedure Laterality Date BREAST BIOPSY Right 03/01/2023 ULT BIOPSY CATARACT EXTRACTION SECTION SECTION 03/14/1974 EGD N/A 10/17/2019 Performed by Sarai Bell DO at [facility] H-PERCUTANEOUS CORONARY INTERVENTION HYSTEROSCOPY DILATION CURETTAGE MYOSURE N/A 01/29/2021 Performed by Jv Briones MD at [facility] INJECTION BLOCK EPIDURAL CAUDAL STEROID N/A 08/14/2022 Performed by Arnulfo Morgan MD at [facility] INJECTION BLOCK EPIDURAL CAUDAL STEROID N/A 06/06/2021 Performed by Arnulfo Morgan MD at [facility] INJECTION BLOCK EPIDURAL CAUDAL STEROID N/A 04/25/2021 Performed by Arnulfo Morgan MD at [facility] INJECTION CAUDAL EPIDURAL WITH CATHETER, STEROID N/A 05/03/2020 Performed by Arnulfo Morgan MD at [facility] INJECTION CAUDAL EPIDURAL WITH CATHETER, STEROID N/A 11/24/2019 Performed by Arnulfo Morgan MD at [facility] INJECTION CAUDAL EPIDURAL WITH CATHETER, STEROID N/A 04/21/2019 Performed by Arnulfo Morgan MD at [facility] NERVE BLOCK Bilateral L 4/5, 5/1 Bilateral 08/18/2019 Performed by Arnulfo Morgan MD at [facility] NERVE BLOCK Bilateral L 4/5, 5/1 Bilateral 06/23/2019 Performed by Arnulfo Morgan MD at [facility] STEROID EPI 1 WITH SEDATION Right L 4, 5 NR Right 03/17/2019 Performed by Arnulfo Morgan MD at [facility] INJECTION STEROID EPI 1 WITH SEDATION: right L45 nroot Right 08/15/2018 Performed by Arnulfo Morgan MD at [facility] LEFT L4, AND 5 NERVE ROOT INJECTION 2 OF 2 Left 07/22/2018 Performed by Arnulfo Morgan MD at [facility] LEFT L4, AND L5 NERVE ROOT 1 OF 2 Left 07/04/2018 Performed by Arnulfo Morgan MD at [facility] SHUNT INSERTION TONSILLECTOMY AGE 4 Transcutaneous aortic valve replacement/Transfemoral/Kwan N/A 08/17/2023 Performed by Chava Norris MD at [facility]ATH [facility] Valvuloplasty aortic N/A 06/03/2023 Performed by Chava Norris MD at [facility]ATH LAB[facility] Past Medical History: Diagnosis Date Anemia Arthritis Asthma very mild, no inhaler use Cataract Dental disease Depression [facility] Diabetes mellitus type 2, controlled ([facility]) Encephalitis Foot fracture, left GERD (gastroesophageal reflux disease) Heart murmur HLD (hyperlipidemia) Hypertension Incontinence Injury of back Insulin dependent diabetes mellitus Kidney failure STAGE 4 Lumbar spondylolysis Murmur Obesity CHELSEA (obstructive sleep apnea) no machine Peptic ulceration Peripheral vascular disease ([facility]) Shortness of breath Stroke ([facility]) 02/27/2024 TIA (transient ischemic attack) Upper respiratory [...] normal. ASSESSMENT/PLAN: Cuca was seen today for [facility]ingo pacheco. Diagnoses and all orders for this visit: Mixed diabetic hyperlipidemia associated with type 2 diabetes mellitus ([facility]) - atorvastatin (LIPITOR) 40 mg tablet; Take 1 tablet (40 mg total) by mouth nightly. Insomnia, unspecified type - traZODone (DESYREL) 100 mg tablet; TAKE 1 TABLET BY MOUTH EVERY DAY AT NIGHT Elevated troponin level Recurrent UTI Spoke with both patient and daughter at length today regarding frequent ER visits. Multiple trips to both [place] and [facility] ER. Primary complaints is generally for [...] KAIDEN Werner 12/05/24 1315 documented in this encounterSumma Health Akron Campus01-10-2025 History of Present illness Narrative* Radha Moran MD - 11/24/2024 2:15 PM EST Cuca Dee Date of visit: 11/24/2024 Date of : 1945 Age: 79 y.o. Patient Active Problem List Diagnosis GERD without esophagitis 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 mellitus ([facility]) PVD (peripheral vascular disease) ([facility]) Anemia, chronic disease Lumbar back pain with radiculopathy affecting left lower extremity Disc displacement, lumbar Primary osteoarthritis of both knees Lumbar spondylosis Moderate episode of recurrent major depressive disorder ([facility]) GI bleed Mixed diabetic hyperlipidemia associated with type 2 diabetes mellitus ([facility]) Murmur, cardiac Left bundle branch block Obstructive sleep apnea syndrome Cerebral ventriculomegaly Edema of lower extremity Wears dentures Normal pressure hydrocephalus ([facility]) 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 Other abnormalities of gait and mobility Essential (primary) hypertension Acute cystitis without hematuria Spinal stenosis of lumbar region with neurogenic claudication SOB (shortness of breath) History of non-ST elevation myocardial infarction (NSTEMI) History of pneumonia Elevated d-dimer Stage 3b chronic kidney disease ([facility]) Malignant neoplasm of upper-outer quadrant of right breast in female, estrogen receptor positive ([facility]) Tremors of nervous system Closed nondisplaced fracture of left pubis with routine healing Acute kidney injury superimposed on CKD ([facility]) Nonrheumatic aortic valve stenosis S/p TAVR (transcatheter aortic valve replacement), 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 ([facility]) Sepsis without acute organ dysfunction ([facility]) Depression, unspecified Difficulty in walking, not elsewhere classified Generalized muscle weakness Hypertensive heart and chronic kidney disease with heart failure and stage 1 through stage 4 chronic kidney disease, or unspecified chronic kidney disease ([facility]) Insomnia, unspecified Limitation of activities due to disability Methicillin resistant Staphylococcus aureus infection as the cause of diseases classified elsewhere Constipation, unspecified Need for assistance with personal care Obesity, unspecified Pneumonia, unspecified organism Primary generalized (osteo)arthritis Unspecified osteoarthritis, unspecified site Type 2 diabetes mellitus with diabetic chronic kidney disease ([facility]) Unspecified asthma, uncomplicated Unspecified Escherichia coli (E. coli) as the cause of diseases classified elsewhere Urinary tract infectious disease Reactive airway disease with acute exacerbation Weakness Lactic acidosis Iron deficiency anemia secondary to inadequate dietary iron intake Hypomagnesemia Acute respiratory failure with hypoxia and hypercapnia ([facility]) COVID-19 virus infection Altered mental status, unspecified altered mental status type Type 2 diabetes mellitus with hypoglycemia without coma ([facility]) Acute cystitis Elevated troponin No Known Allergies [...] as needed 1 each 0 DEXCOM G7 DIRECTOR FOOD AND BEVERAGE muscogee USE DIRECTED TO CONTINUOUSLY MONITOR BLOOD SUGAR [...] and 6 Units in the evening. lancets (CrowdStriketouch ultrasoft) misc Monitor blood sugars four times [...] visit. Chief Complaint Patient [facility] PMH ELEVATED TROPONIN History of Present [...] use Cataract Dental disease Depression Diabetes mellitus ([facility]) Diabetes mellitus type 2, controlled ([facility]) Encephalitis Foot fracture, left GERD (gastroesophageal reflux disease) Heart murmur HLD (hyperlipidemia) Hypertension Incontinence Injury of back Insulin dependent diabetes mellitus Kidney failure STAGE 4 Lumbar spondylolysis Murmur Obesity CHELSEA (obstructive sleep apnea) no machine Peptic ulceration Peripheral vascular disease ([facility]) Shortness of breath Stroke ([facility]) 02/27/2024 TIA (transient ischemic attack) Upper respiratory infection UTI (urinary tract infection) Visual impairment Wears dentures No data recorded No data recorded No data recorded Past Surgical History: Procedure Laterality Date BREAST BIOPSY Right 03/01/2023 ULT BIOPSY CATARACT EXTRACTION SECTION SECTION 03/14/1974 EGD N/A 10/17/2019 Performed by Sarai Bell DO at [facility] H-PERCUTANEOUS CORONARY INTERVENTION HYSTEROSCOPY DILATION CURETTAGE MYOSURE N/A 01/29/2021 Performed by Jv Briones MD at [facility] INJECTION BLOCK EPIDURAL CAUDAL STEROID N/A 08/14/2022 Performed by Arnulfo Morgan MD at [facility] INJECTION BLOCK EPIDURAL CAUDAL STEROID N/A 06/06/2021 Performed by Arnulfo Morgan MD at [facility] INJECTION BLOCK EPIDURAL CAUDAL STEROID N/A 04/25/2021 Performed by Arnulfo Morgan MD at [facility] INJECTION CAUDAL EPIDURAL WITH CATHETER, STEROID N/A 05/03/2020 Performed by Arnulfo Morgan MD at [facility] INJECTION CAUDAL EPIDURAL WITH CATHETER, STEROID N/A 11/24/2019 Performed by Arnulfo Morgan MD at [facility] INJECTION CAUDAL EPIDURAL WITH CATHETER, STEROID N/A 04/21/2019 Performed by Arnulfo Morgan MD at [facility] NERVE BLOCK Bilateral L 4/5, 5/1 Bilateral 08/18/2019 Performed by Arnulfo Morgan MD at [facility] NERVE BLOCK Bilateral L 4/5, 5/1 Bilateral 06/23/2019 Performed by Arnulfo Morgan MD at [facility] INJECTION STEROID EPI 1 WITH SEDATION Right L 4, 5 NR Right 03/17/2019 Performed by Arnulfo Morgan MD at [facility] INJECTION STEROID EPI 1 WITH SEDATION: right L45 nroot Right 08/15/2018 Performed by Arnulfo Morgan MD at [facility] LEFT L4, AND 5 NERVE ROOT INJECTION 2 OF 2 Left 07/22/2018 Performed by Arnulfo Morgan MD at [facility] LEFT L4, AND L5 NERVE ROOT 1 OF 2 Left 07/04/2018 Performed by Arnulfo Morgan MD at [facility] SHUNT INSERTION TONSILLECTOMY AGE 4 Transcutaneous aortic valve replacement/Transfemoral/Kwan N/A 08/17/2023 Performed by Chava Norris MD at [facility] Valvuloplasty aortic N/A 06/03/2023 Performed by Chava Norris MD at [facility] Family History Problem Relation [...] 0 min Stress: Stress Concern Present (10/28/2024) [employer] [place] [employer] - Occupational Stress Questionnaire Feeling of Stress : To some extent Social Connections: Moderately Integrated (10/28/2024) Social Connection and Isolation Panel [NHANES] Frequency of Communication with Friends and Family: Never Frequency of Social Gatherings with Friends and Family: More than three times a week Attends Religion Services: More than 4 times per year [...] replacement), bioprosthetic 3. 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 Recent admit for [...] Werner Referring Physician: KAIDEN Werner [address] [place] [address] documented in this encounterBrightlook HospitalHealth Elements01-09-2025 Miscellaneous Notes* Telephone Encounter - Jazzmine Vega CMA - 11/23/2024 1:58 PM EST Called patient to remind them to bring their most current copy of their medication list with them to their appt. Patient verbalizes understanding. documented in this encounterSumma Health Akron Campus01-09-2025 Telephone encounter Note* Telephone Encounter - Jazzmine Vega CMA - 11/23/2024 1:58 PM EST Called patient to remind them to bring their most current copy of their medication list with them to their appt. Patient verbalizes understanding. [facility]12-30-2024 Miscellaneous Notes* Telephone Encounter - Yani Martinez - 11/13/2024 5:24 PM EST ----- Message ----- From: Irina Brunner MD Sent: 11/10/2024 7:37 AM EST To: [facility]ue Stitcher Subject: Post discharge follow-up Patient is seen at [facility]. Starting off. Need follow-up as outpatient within 3 weeks fromdischarge. Thank you * Telephone Encounter - Yani Martinez - 11/13/2024 5:24 PM EST SCHEDULED 11/24/2024 documented in this encounterSumma Health Akron Campus12-30-2024 Telephone encounter Note* Telephone Encounter - Yani Martinez - 11/13/2024 5:24 PM EST ----- Message ----- From: Irina Brunner MD Sent: 11/10/2024 7:37 AM EST To: Ppc General Tongue Stitcher Subject: Post discharge follow-up Patient is seen at [facility]. Starting off. Need follow-up as outpatient within 3 weeks fromdischarge. Thank you [facility]12-30-2024 Telephone encounter Note* Telephone Encounter - Yani Martinez - 11/13/2024 5:24 PM EST SCHEDULED 11/24/2024 [facility]12-27-2024 Miscellaneous Notes* Telephone Encounter - Maddie Givens RN - 11/10/2024 8:54 AM EST [facility] called ODALIS Perkins, to ask if patient discharged with home care, will PCP cover? documented in this encounterSumma Health Akron Campus12-27-2024 Telephone encounter Note* Telephone Encounter - Maddie Givens RN - 11/10/2024 8:54 AM EST [facility] called ODALIS Perkins, to ask if patient discharged with home care, will PCP cover? [facility] Work Phone: [phone] Miscellaneous Notes* Telephone Encounter - Alice Morrison CMA - 09/06/2024 3:15 PM EDT [facility] called to see if you could send in nystatin ( 60g bottle) for this pt , pt has excoriated abdomen folds ,flacky red fungal odor , she did educate pt , also stated the right side is worse than the left side * Telephone Encounter - KAIDEN Werner - 09/06/2024 3:15 PM EDT done documented in this encounterSumma Health Akron Campus10-23-2024 Telephone encounter Note* Telephone Encounter - Alice Morrison CMA - 09/06/2024 3:15 PM EDT [facility] called to see if you could send in nystatin ( 60g bottle) for this pt , pt has excoriated abdomen folds ,flacky red fungal odor , she did educate pt , also stated the right side is worse than the left side [facility]10-23-2024 Telephone encounter Note* Telephone Encounter - KAIDEN Werner - 09/06/2024 3:15 PM EDT done [facility]10-14-2024 History of Present illness Narrative* KAIDEN Werner [...] Discharge Specialty: Endocrine Name of Discharging Facility: [facility] Date of Facility Discharge: Admitted: 08/23/24 Discharged: 08/24/24 Date of Interactive Contact and Name of Flotation Tender: 08/25/24 Spoke with patient's daughterIleana Medication Review Completed: Yes CHANGE how you take: insulin detemir U-100 (LEVEMIR) Medication Reconciliation Questions/Concerns: *Follow Up Appointments with Providers: Primary: LISA WernerCLOTH HAULER: 08/28/24 Specialty: Endocrinology (Christiano): TBD Review of [...] the most recent facilitydischarge document. Discharged from [facility] on 08-24-24 Patient is accompanied by her daughter today. States daughter administered her insulin. Patient forgot she already received and she administered insulin as well. Subsequently, blood sugar dropped and developed altered mental status. Daughter states blood sugar did not register as it was very low. [facility] Type [...] it was very low. She called the [facility] for ER transport for evaluation. Type 2 DM is managed by endocrine, Zainab Hernandez. Influenza vaccine administered today Follow up 5 months Sooner if needed KAIDEN Werner 08/28/24 0902 documented in this encounterSumma Health Akron Campus10-02-2024 Miscellaneous Notes* Telephone Encounter - Deja Mojica CMA - 08/16/2024 4:11 PM EDT Do you still need a TCM on this patient? * Telephone Encounter - KAIDEN Werner - 08/16/2024 4:11 PM EDT She currently has COVID-19. I am going to say not at this time documented in this encounterSumma Health Akron Campus10-02-2024 Telephone encounter Note* Telephone Encounter - Deja Mojica CMA - 08/16/2024 4:11 PM EDT Do you still need a TCM on this patient? [facility]10-02-2024 Telephone encounter Note* Telephone Encounter - KAIDEN Werner - 08/16/2024 4:11 PM EDT She currently has COVID-19. I am going to say not at this time [facility]10-02-2024 Miscellaneous Notes* Telephone Encounter - Delisa Torres [...] hyperlipidemia associated with type 2 diabetes mellitus ([facility]) Obstructive sleep apnea syndrome Essential (primary) hypertension Acute cystitis without hematuria Stage 3b chronic kidney disease ([facility]) Sepsis without acute organ dysfunction ([facility]) Iron deficiency anemia secondary to inadequate dietary iron intake COVID-19 virus infection Discharge Specialty: Other *Name of Discharging Facility: [facility] Date of Facility Discharge: Admission 08/12/24 Discharge 08/14/24 Date of Interactive Contact and Name of Flotation Tender: 08/16/24 10:22 am Spoke to patients molina Tejeda *Medication Review Completed: No START taking: amoxicillin-pot clavulanate (AUGMENTIN) predniSONE (DELTASONE) Medication Reconciliation Questions/Concerns: -Reviewed discharge changes to medications -Declines medications review -Patients daughter picked up medications and patient started taking as prescribed -Denies questions or concerns *Follow Up Appointments with Providers: Primary: Pam Stinson APRN-CLOTH HAULER Specialty: Specialty: Specialty: Review of Pending Lab/Diagnostic [...] pass on this one. documented in this encounterSumma Health Akron Campus10-02-2024 Telephone encounter Note* Telephone Encounter - Delisa [...] Acute respiratory failure with hypoxia and hypercapnia ([facility]) Active Problems: PVD (peripheral vascular disease) ([facility]) Mixed diabetic hyperlipidemia associated with type 2 diabetes mellitus ([facility]) Obstructive sleep apnea syndrome Essential (primary) hypertension Acute cystitis without hematuria Stage 3b chronic kidney disease ([facility]) Sepsis without acute organ dysfunction ([facility]) Iron deficiency anemia secondary to inadequate dietary iron intake COVID-19 virus infection Discharge Specialty: Other *Name of Discharging Facility: [facility] Date of Facility Discharge: Admission 08/12/24 Discharge 08/14/24 Date of Interactive Contact and Name of Flotation Tender: 08/16/24 10:22 am Spoke to patients molina Tejeda *Medication Review Completed: No START taking: amoxicillin-pot clavulanate (AUGMENTIN) predniSONE (DELTASONE) Medication Reconciliation Questions/Concerns: -Reviewed discharge changes to medications -Declines medications review -Patients daughter picked up medications and patient started taking as prescribed -Denies questions or concerns *Follow Up Appointments with Providers: Primary: Pam Stinson APRN-CLOTH HAULER Specialty: Specialty: Specialty: Review of Pending Lab/Diagnostic [...] Other Services Utilized/Needed by the Patient: [facility] [id number] Telephone encounter Note* Telephone Encounter - Deja Mojica CMA - 08/16/2024 10:13 AM EDT Patient currently has COVID so she will pass on this one. [facility] [employer] [id number] History of Present illness Narrative* KAIDEN Werner [...] Discharge Specialty: Pulmonology Name of Discharging Facility: [facility] Date of Facility Discharge: Admitted; 06/13/24 Discharged: 06/15/24 Date of Interactive Contact and Name of Flotation Tender: 06/16/24 @ 943 am: no answer, left message to return call 06/16/24 @ 151 pm: no answer Medication Review Completed: Pending provider review START taking: albuterol (PROVENTIL,VENTOLIN) doxycycline (MONODOX) fluticasone propion-salmeteroL (ADVAIR) guaiFENesin (MUCINEX) predniSONE (DELTASONE) STOP taking: hydroCHLOROthiazide 25 mg tablet (HYDRODIURIL) Medication Reconciliation Questions/Concerns: Follow Up Appointments with Providers: Primary: Pam Stinson APRN-CLOTH HAULER: 06/21/24 Review of Pending Lab/Diagnostic Tests and Plan for Completion: Assessment and Support of Treatment Regimen Adherence and Medication Management: Education Provided by ACN to Support Self-Management, Independent Living and ADLs: Communication with Home Health Agencies and Other Services Utilized/Needed by the Patient: [facility] Presents today for transitional care follow up. Is accompanied by her daughter today. Was discharged from [facility] on 2024. Onset of initial symptoms [...] airway disease with acute exacerbation Currently has [facility] home care in the home. Receiving PT for strengthen. Follow up July KAIDEN Werner 06/28/24 [id number] documented in this encounterSumma Health Akron Campus06-19-2024 History of Present illness Narrative* KAIDEN Werner - 05/03/2024 2:40 PM EDT Subjective Patient ID: Cuca Dee is a 78 y.o. female. The patient is here today for discharge follow up from post acute facility. Transition of Care Med Rec completed? Yes Discharged medications: Medications have been reviewed and reconciled with the most recent facilitydischarge document. Went to [facility] on April 06, 2024 after one day of not feeling well. Daughter called EMS. Was noted to have oxygen sats in the 80's. Subsequently was admitted for pneumonia bilateral lower lobes. After discharge, she recovered at [facility]. Was discharged on Sunday, April 28, 2024.She returned to home, resides with daughter and grandson. No medication changes. Today, she feels she is almost at her normal baseline. Does feel slightly weaker than prior to admission. Uses rolling walker for ambulation. She is scheduled for home care with PT / OT tomorrow. [facility]. The following portions of the patient's [...] KAIDEN Werner 05/03/24 1521 documented in this encounterSumma Health Akron CampusCodenvy [id number] History of Present illness Narrative* Rosario Strong RN - 03/09/2024 3:38 PM EDT Patient is here for follow up with Dr. Muñoz. Orders received for B/l mammogram is due. F/u in 6 months, CBC, CMP. Patient given calendar, verbalized understanding of future appointments. documented in this encounterSumma Health Akron Campus04-25-2024 History of Present illness Narrative* Casimiro Muñoz MD - 03/09/2024 3:15 PM EDT Images from the original note were not included. [facility] 03/09/24 Cuca Dee is a 78 y.o. year old female seen today in the oncology clinic. Chief Complaint Patient presents with Follow-up History of Present Illness: Mrs. Dee is a 78 y.o. female with history of aortic valve stenosis, she had PCI earlier in the year at [facility] for coronary disease. during the cardiac [...] mammary carcinoma, grade 2, ER strongly positive RI moderately positive and [id number]. There was also suspicious spine lesion, MRI [...] use Cataract Dental disease Depression Diabetes mellitus ([facility]) Diabetes mellitus type 2, controlled ([facility]) Encephalitis Foot fracture, left GERD (gastroesophageal reflux disease) Heart murmur HLD (hyperlipidemia) Hypertension Incontinence Injury of back Insulin dependent diabetes mellitus Kidney failure STAGE 4 Lumbar spondylolysis Murmur Obesity CHELSEA (obstructive sleep apnea) no machine Peptic ulceration Peripheral vascular disease ([facility]) Shortness of breath Stroke ([facility]) 02/27/2024 TIA (transient ischemic attack) Upper respiratory infection UTI (urinary tract infection) Visual impairment Wears dentures Past Surgical History: Procedure Laterality Date BREAST BIOPSY Right 03/01/2023 ULT BIOPSY CATARACT EXTRACTION SECTION SECTION 03/14/1974 EGD N/A 10/17/2019 Performed by Sarai Bell DO at [facility] HYSTEROSCOPY DILATION CURETTAGE MYOSURE N/A 01/29/2021 Performed by Jv Briones MD at [facility] INJECTION BLOCK EPIDURAL CAUDAL STEROID N/A 08/14/2022 Performed by Arnulfo Morgan MD at [facility] INJECTION BLOCK EPIDURAL CAUDAL STEROID N/A 06/06/2021 Performed by Arnulfo Morgan MD at [facility] INJECTION BLOCK EPIDURAL CAUDAL STEROID N/A 04/25/2021 Performed by Arnulfo Morgan MD at [facility] INJECTION CAUDAL EPIDURAL WITH CATHETER, STEROID N/A 05/03/2020 Performed by Arnulfo Morgan MD at [facility] INJECTION CAUDAL EPIDURAL WITH CATHETER, STEROID N/A 11/24/2019 Performed by Arnulfo Morgan MD at [facility] INJECTION CAUDAL EPIDURAL WITH CATHETER, STEROID N/A 04/21/2019 Performed by Arnulfo Morgan MD at [facility] NERVE BLOCK Bilateral L 4/5, 5/1 Bilateral 08/18/2019 Performed by Arnulfo Morgan MD at [facility] INJECTION MEDIAL BRANCH NERVE BLOCK Bilateral L 4/5, 5/1 Bilateral 06/23/2019 Performed by Arnulfo Morgan MD at [facility] INJECTION STEROID EPI 1 WITH SEDATION Right L 4, 5 NR Right 03/17/2019 Performed by Arnulfo Morgan MD at [facility] INJECTION STEROID EPI 1 WITH SEDATION: right L45 nroot Right 08/15/2018 Performed by Arnulfo Morgan MD at [facility] LEFT L4, AND 5 NERVE ROOT INJECTION 2 OF 2 Left 07/22/2018 Performed by Arnulfo Morgan MD at [facility] LEFT L4, AND L5 NERVE ROOT 1 OF 2 Left 07/04/2018 Performed by Arnulfo Morgan MD at [facility] PERCUTANEOUS CORONARY INTERVENTION SHUNT INSERTION TONSILLECTOMY AGE 4 Transcutaneous aortic valve replacement/Transfemoral/Kwan N/A 08/17/2023 Performed by Chava Norris MD at [facility] Valvuloplasty aortic N/A 06/03/2023 Performed by Chava Norris MD at [facility] Family History Problem Relation [...] min Stress: No Stress Concern Present (10/05/2022) [employer] [place] [employer] - Occupational Stress Questionnaire Feeling of Stress : Not at all Social Connections: Moderately Isolated (10/05/2022) Social Connection and Isolation Panel [NHANES] Frequency of Communication with Friends and Family: Never Frequency of Social Gatherings with Friends and Family: Never Attends Religion Services: More than 4 times per year Active Member of Clubs or Organizations: Yes Attends Club or Organization Meetings: More than 4 times per year Marital Status: Never Received from [facility] [place] Safety & Environment Housing [...] nephropathy, without long-term current use of insulin ([facility] [place]) Signed by: KAIDEN Santana Monitor blood sugars four times daily and as needed clopidogreL 75 mg tablet Refills: 0 Dose: 75 mg Commonly known as: PLAVIX gabapentin 300 mg capsule Quantity: 180 capsule Refills: 1 Doctor's comments: 90 Day Supply with one refill For diagnoses: 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 mellitus ([facility]) Dose: 300 mg Signed by: KAIDEN Santana 300 mg, oral, 2 times daily Commonly known as: NEURONTIN hydroCHLOROthiazide 25 mg tablet Refills: 0 Dose: 25 mg Commonly known as: HYDRODIURIL * lancets misc Quantity: 200 each Refills: 0 Doctor's comments: Whatever covered by insurance For diagnoses: Controlled type 2 diabetes mellitus with diabetic nephropathy, without long-term current use of insulin ([facility] [place]) Signed by: KAIDEN Santana Monitor blood sugars four times daily and as needed Commonly known as: onetouch ultrasoft * ONETOUCH DELICA PLUS LANCET 33 gauge misc Refills: 0 Generic drug: lancets letrozole 2.5 mg chemo tablet Quantity: 90 tablet Refills: 3 For diagnoses: Malignant neoplasm of upper-outer quadrant of right female breast, unspecified estrogen receptor status ([facility]) Signed by: Dr. Casimiro Muñoz MD TAKE [...] disorder in partial remission, unspecified whether recurrent ([facility]) Dose: 100 mg Signed by: KAIDEN Santana [...] to ensure the accuracy of this automated nutrition worker, some errors in nutrition worker may have occurred. CC: Patient Care Team: KAIDEN Werner as PCP - General (Family Medicine) John Quiles MD (Nephrology) KAIDEN Hsu as Nurse Practitioner (Pulmonary Medicine) Madison Ye MD as Referring Physician (Endocrinology, Diabetes & Metabolism) Casimiro Muñoz MD as Consulting Physician (Hematology) PCP:Pam Stinson Referring MD: Pam Stinson AP* documented in this encounterBrightlook HospitalHealth [facility]04-25-2024 Instructions* Patient Instructions* Casimiro Muñoz MD - 03/09/2024 3:15 PM EDT B/l mammogram is due. F/u in 6 months, CBC, CMP. documented in this encounterBrightlook HospitalHealth Elements04-15-2024 Miscellaneous Notes* Telephone Encounter - Maria Del Carmen Holland RN - 02/28/2024 3:24 PM EDT ----- Message from RONNA Melissa sent at 02/28/2024 3:07 PM EDT ----- Regarding: FW: Geetha Jules Maria Del Carmen! I just got called again from [place]. They were contacted by [facility] and patient does NOT have an order for MRI Brain. She only has the order for CT brain. So I placed a STAT MRI Brain w and wo order for patient to get imaging done at [facility] in next 1-2 weeks. I'm not sure the best way to get this order recognized by [facility] system. Do we need to fax it? Can they see the order in [employer]'s system? Just let mw know if I need to do something different. TIA!!! ----- Message ----- From: RONNA Melissa Sent: 02/28/2024 1:29 PM EDT To: [facility] Stroke Scheduling; [facility] Stroke Tongue Stitcher Subject: [place] BAR We suspect a small brainstem stroke on this lady but unfortunately she cannot complete her MRI at [place]. 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 Dr. Martell advised the followin. Check P2Y12- I already placed an order in [facility]. This can be done when she goes to [facility]. 2. Expedite MRI Brain. This was scheduled to be done at [facility] on 03/19. Dr. Martell would like it done in the next 1-2 weeks. We can revise the established order if needed. Cuca will need FU in Stroke clinic in 4-6 weeks. (Likely after her 5/5/25 appt). She can see Jayshree Oliver or fellow. Note some of her records are in [facility]. We will need to decide about doubling dose of Plavix vs transition to brilinta pending MRI and P2Y12 testing. Thanks! * Telephone Encounter - Maria Del Caremn Holland RN - 02/28/2024 3:24 PM EDT Faxed MRI brain order to [facility]. Will check tomorrow that they received it. Also faxed order for P2Y12 to [place] [facility] * Telephone Encounter - Kristy Contreras - 02/28/2024 3:24 PM EDT Received call today 02/29/24 9:10 from [facility] Radiology who stated that patient's MR Brain with and without contrast was denied and will need a prior auth before they can schedule for patient. * Telephone Encounter - Maria Del Carmen Holland RN - 02/28/2024 3:24 PM EDT Sent hospital note to [place] to use for prior authorization. * Telephone Encounter - Maria Del Carmen Holland RN - 02/28/2024 3:24 PM EDT Sched for 5/2 * Telephone Encounter - Maria Del Carmen Holland RN - 02/28/2024 3:24 PM EDT MR moved to 6/5 * Telephone Encounter - Teena Quinonez CMA - 02/28/2024 3:24 PM EDT Called [facility] and caller stated Pt is scheduled for Wednesday 04/25 for MRI. * Telephone Encounter - Teena Quinonez CMA - 02/28/2024 3:24 PM EDT Called [facility] to retrieve imaging. Caller stated [...] drawn? Order was already faxed over to [place] lab. * Telephone Encounter - Teena Quinonez CMA - 02/28/2024 3:24 PM EDT Called [facility] for MRI to be pushed via PACS. Should be available shortly. Called Pt's daughter per pending lab order. Daughter stated they were unaware of this and will get it completed. * Telephone Encounter - Kristy Hernandez - 02/28/2024 3:24 PM EDT Spoke with Ileana and made an appt documented in this encounterSum[facility]04-15-2024 Telephone encounter Note* Telephone Encounter - Maria Del Carmen Holland RN - 02/28/2024 3:24 PM EDT ----- Message from RONNA Melissa sent at 02/28/2024 3:07 PM EDT ----- Regarding: FW: Geetha Joyce! I just got called again from [place]. They were contacted by [facility] and patient does NOT have an order for MRI Brain. She only has the order for CT brain. So I placed a STAT MRI Brain w and wo order for patient to get imaging done at [facility] in next 1-2 weeks. I'm not sure the best way to get this order recognized by [facility] system. Do we need to fax it? [facility]? Just let mw know if I need to do something different. TIA!!! ----- Message ----- From: RONNA Melissa Sent: 02/28/2024 1:29 PM EDT To: [facility] Stroke Scheduling; [facility] Stroke Tongue Stitcher Subject: [place] FU We suspect a small brainstem stroke on this lady but unfortunately she cannot complete her MRI at [place]. 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 Dr. Martell advised the followin. Check P2Y12- I already placed an order in [facility]. This can be done when she goes to [facility]. 2. Expedite MRI Brain. This was scheduled to be done at [facility] on 03/19. Dr. Martell would like it done in the next 1-2 weeks. We can revise the established order if needed. Cuca will need FU in Stroke clinic in 4-6 weeks. (Likely after her 03/19/25 appt). She can see Jayshree Oliver or fellow. Note some of her records are in [facility]. We will need to decide about doubling dose of Plavix vs transition to brilinta pending MRI and P2Y12 testing. Thanks! [facility]04-15-2024 Telephone encounter Note* Telephone Encounter - Maria Del Carmen Holland RN - 02/28/2024 3:24 PM EDT Faxed MRI brain order to [facility]. Will check tomorrow that they received it. Also faxed order for P2Y12 to [facility]04-15-[facility]24 Telephone encounter Note* Telephone Encounter - Kristy Contreras - 02/28/2024 3:24 PM EDT Received call today 02/29/24 9:10 from [facility] Radiology who stated that patient's MR Brain with and without contrast was denied and will need a prior auth before they can schedule for patient. [facility]04-15-2024 Telephone encounter Note* Telephone Encounter - Maria Del Carmen Holland RN - 02/28/2024 3:24 PM EDT Sent hospital note to [place] to use for prior authorization. [facility]04-15-2024 Telephone encounter Note* Telephone Encounter - Maria Del Carmen Holland RN - 02/28/2024 3:24 PM EDT Sched for /2 [facility]04-15-2024 Telephone encounter Note* Telephone Encounter - Maria Del Carmen Holland RN - 02/28/2024 3:24 PM EDT MR moved to 6/5 [facility]04-15-2024 Telephone encounter Note* Telephone Encounter - Teena Quinonez CMA - 02/28/2024 3:24 PM EDT Called [facility] and caller stated Pt is scheduled for Wednesday 04/25 for MRI. [facility]04-15-[facility] Telephone encounter Note* Telephone Encounter - Teena Quinonez CMA - 02/28/2024 3:24 PM EDT Called [facility] to retrieve imaging. Caller stated it is rescheduled for 05/23/24. Postponed message till the date above. [facility]04-15-2024 Telephone encounter Note* Telephone Encounter - Alayna Martel RN - 02/28/2024 3:24 PM EDT Call we have imaging pushed to PACs for review, also can we call patient and remind or ask if she had the P2Y12 lab that needs to be drawn? Order was already faxed over to [place] lab. [facility]04-15-2024 Telephone encounter Note* Telephone Encounter - Teena Quinonez CMA - 02/28/2024 3:24 PM EDT Called [facility] for MRI to be pushed via PACS. Should be available shortly. Called Pt's daughter per pending lab order. Daughter stated they were unaware of this and will get it completed. [facility]04-15-2024 Telephone encounter Note* Telephone Encounter - Kristy Hernandez - 02/28/2024 3:24 PM EDT Spoke with Ileana and made an appt [facility]03-27-[facility]24 History of Present illness Narrative* Pam Stinson, ALICE-CLOTH HAULER - 02/09/2024 1:00 PM EDT Images from the original note were not included[place] [id number] SUBJECTIVE: Patient ID: Cuca Dee is a 78 y.o. female. Chief Complaint Patient presents with incontinence Accompanied by daughter today Urine is cloudy, increased incontinence. Concerns for reoccurrence of UTI. [facility]. Uses [...] 10/17/2019 Performed by Sarai Bell DO at [facility] HYSTEROSCOPY DILATION CURETTAGE MYOSURE N/A 01/29/2021 Performed by Jv Briones MD at [facility] INJECTION BLOCK EPIDURAL CAUDAL STEROID N/A 08/14/2022 Performed by Arnulfo Morgan MD at [facility] INJECTION BLOCK EPIDURAL CAUDAL STEROID N/A 06/06/2021 Performed by Arnulfo Morgan MD at [facility] INJECTION BLOCK EPIDURAL CAUDAL STEROID N/A 04/25/2021 Performed by Arnulfo Morgan MD at [facility] INJECTION CAUDAL EPIDURAL WITH CATHETER, STEROID N/A 05/03/2020 Performed by Arnulfo Morgan MD at [facility] INJECTION CAUDAL EPIDURAL WITH CATHETER, STEROID N/A 11/24/2019 Performed by Arnulfo Morgan MD at [facility] INJECTION CAUDAL EPIDURAL WITH CATHETER, STEROID N/A 04/21/2019 Performed by Arnulfo Morgan MD at [facility] NERVE BLOCK Bilateral L 4/5, 5/1 Bilateral 08/18/2019 Performed by Arnulfo Morgan MD at [facility] NERVE BLOCK Bilateral L 4/5, 5/1 Bilateral 06/23/2019 Performed by Arnulfo Morgan MD at [facility]CTION STEROID EPI 1 WITH SEDATION Right L 4, 5 NR Right 03/17/2019 Performed by Arnulfo Morgan MD at [facility] INJECTION STEROID EPI 1 WITH SEDATION: right L45 nroot Right 08/15/2018 Performed by Arnulfo Morgan MD at [facility] LEFT L4, AND 5 NERVE ROOT INJECTION 2 OF 2 Left 07/22/2018 Performed by Arnulfo Morgan MD at [facility] LEFT L4, AND L5 NERVE ROOT 1 OF 2 Left 07/04/2018 Performed by Arnulfo Morgan MD at [facility] PERCUTANEOUS CORONARY INTERVENTION SHUNT INSERTION TONSILLECTOMY AGE 4 Transcutaneous aortic valve replacement/Transfemoral/Kwan N/A 08/17/2023 Performed by Chava Norris MD at [facility] Valvuloplasty aortic N/A 06/03/2023 Performed by Chava Norris MD at [facility]ATH [facility] Past Medical History: Diagnosis Date Anemia Arthritis Asthma very mild, no inhaler use Cataract Dental disease Depression Diabetes mellitus ([facility]) Diabetes mellitus type 2, controlled ([facility] [place]) Encephalitis Foot fracture, left GERD (gastroesophageal reflux disease) Heart murmur HLD (hyperlipidemia) Hypertension Incontinence Injury of back Insulin dependent diabetes mellitus Kidney failure STAGE 4 Lumbar spondylolysis Murmur Obesity CHELSEA (obstructive sleep apnea) no machine Peptic ulceration Peripheral vascular disease ([facility] [place]) Shortness of breath TIA (transient ischemic attack) [...] KAIDEN Werner 02/09/24 1420 documented in this encounterSum[facility]01-31-2024 History of Present illness Narrative* KAIDEN Werner - 12/15/2023 3:00 PM EST Images from the original note were not included. [address] [facility] [id number] SUBJECTIVE: Patient ID: Cuca Dee is a [...] 10/17/2019 Performed by Sarai Bell DO at [facility] HYSTEROSCOPY DILATION CURETTAGE MYOSURE N/A 01/29/2021 Performed by Jv Briones MD at [facility] INJECTION BLOCK EPIDURAL CAUDAL STEROID N/A 08/14/2022 Performed by Arnulfo Morgan MD at [facility] INJECTION BLOCK EPIDURAL CAUDAL STEROID N/A 06/06/2021 Performed by Arnulfo Morgan MD at [facility] INJECTION BLOCK EPIDURAL CAUDAL STEROID N/A 04/25/2021 Performed by Arnulfo Morgan MD at [facility] CAUDAL EPIDURAL WITH CATHETER, STEROID N/A 05/03/2020 Performed by Arnulfo Morgan MD at [facility] CAUDAL EPIDURAL WITH CATHETER, STEROID N/A 11/24/2019 Performed by Arnulfo Morgan MD at [facility] INJECTION CAUDAL EPIDURAL WITH CATHETER, STEROID N/A 04/21/2019 Performed by Arnulfo Morgan MD at [facility] NERVE BLOCK Bilateral L 4/5, 5/1 Bilateral 08/18/2019 Performed by Arnulfo Morgan MD at [facility] NERVE BLOCK Bilateral L 4/5, 5/1 Bilateral 06/23/2019 Performed by Arnulfo Morgan MD at [facility] STEROID EPI 1 WITH SEDATION Right L 4, 5 NR Right 03/17/2019 Performed by Arnulfo Morgan MD at [facility] STEROID EPI 1 WITH SEDATION: right L45 nroot Right 08/15/2018 Performed by Arnulfo Morgan MD at [facility] LEFT L4, AND 5 NERVE ROOT INJECTION 2 OF 2 Left 07/22/2018 Performed by Arnulfo Morgan MD at [facility] LEFT L4, AND L5 NERVE ROOT 1 OF 2 Left 07/04/2018 Performed by Arnulfo Morgan MD at [facility] PERCUTANEOUS CORONARY INTERVENTION SHUNT INSERTION TONSILLECTOMY AGE 4 Transcutaneous aortic valve replacement/Transfemoral/Kwan N/A 08/17/2023 Performed by Chava Norris MD at [facility] Valvuloplasty aortic N/A 06/03/2023 Performed by Chava Norris MD at [facility] Past Medical History: Diagnosis Date Anemia Arthritis Asthma very mild, no inhaler use Cataract Dental disease Depression Diabetes mellitus ([facility]) Diabetes mellitus type 2, controlled ([facility]) Encephalitis Foot fracture, left GERD (gastroesophageal reflux disease) Heart murmur HLD (hyperlipidemia) Hypertension Incontinence Injury of back Insulin dependent diabetes mellitus Kidney failure STAGE 4 Lumbar spondylolysis Murmur Obesity CHELSEA (obstructive sleep apnea) no machine Peptic ulceration Peripheral vascular disease ([facility]) Shortness of breath TIA (transient ischemic attack) [...] needed (cough and congestion). Normal pressure hydrocephalus ([facility]) Moderate episode of recurrent major depressive disorder ([facility]) PVD (peripheral vascular disease) ([facility] [place]) 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 mellitus ([facility]) - gabapentin (NEURONTIN) 300 mg capsule; Take 1 capsule (300 mg total) by mouth in the morning and 1 capsule (300 mg total) before bedtime. Stage 3b chronic kidney disease ([facility] [place]) Major depressive disorder in partial remission, unspecified whether recurrent ([facility]) - sertraline (ZOLOFT) 100 mg tablet; Take [...] stage 3b chronic kidney disease and hypertension ([facility]) - SITagliptin phosphate (JANUVIA) 50 mg tablet; Take 1 tablet (50 mg total) by mouth in the morning. Type 2 DM -Managed by endocrine in [place] She believes her A1c is below 7% [...] needed for sore throat. Tylenolas needed per automatic head sawyer guidelines for fever or pain. Body mass [...] KAIDEN Werner 12/15/23 1559 documented in this encounterSumma Health [facility]01-11-2024 History of Present illness Narrative* Casimiro Muñoz MD - 11/25/2023 2:30 PM EST Images from the original note were not included. [facility] 11/25/23 Cuca Dee is a 78 y.o. year old female seen today in the oncology clinic. Chief Complaint Patient presents with Follow-up History of Present Illness: Mrs. Dee is a 78 y.o. female with history of aortic valve stenosis, she had PCI earlier in the year at [facility] for coronary disease. during the cardiac [...] mammary carcinoma, grade 2, ER strongly positive RI moderately positive and [id number]. There was also suspicious spine lesion, MRI [...] use Cataract Dental disease Depression Diabetes mellitus ([facility]) Diabetes mellitus type 2, controlled ([facility]) Encephalitis Foot fracture, left GERD (gastroesophageal reflux disease) Heart murmur HLD (hyperlipidemia) Hypertension Incontinence Injury of back Insulin dependent diabetes mellitus Kidney failure STAGE 4 Lumbar spondylolysis Murmur Obesity CHELSEA (obstructive sleep apnea) no machine Peptic ulceration Peripheral vascular disease ([facility] [place]) Shortness of breath TIA (transient ischemic attack) Upper respiratory infection UTI (urinary tract infection) Visual impairment Wears dentures Past Surgical History: Procedure Laterality Date BREAST BIOPSY Right 03/01/2023 ULT BIOPSY CATARACT EXTRACTION SECTION SECTION 03/14/1974 EGD N/A 10/17/2019 Performed by Sarai Bell DO at [facility] HYSTEROSCOPY DILATION CURETTAGE MYOSURE N/A 01/29/2021 Performed by Jv Briones MD at [facility] INJECTION BLOCK EPIDURAL CAUDAL STEROID N/A 08/14/2022 Performed by Arnulfo Morgan MD at [facility] INJECTION BLOCK EPIDURAL CAUDAL STEROID N/A 06/06/2021 Performed by Arnulfo Morgan MD at [facility] INJECTION BLOCK EPIDURAL CAUDAL STEROID N/A 04/25/2021 Performed by Arnulfo Morgan MD at [facility] INJECTION CAUDAL EPIDURAL WITH CATHETER, STEROID N/A 05/03/2020 Performed by Arnulfo Morgan MD at [facility] INJECTION CAUDAL EPIDURAL WITH CATHETER, STEROID N/A 11/24/2019 Performed by Arnulfo Morgan MD at [facility] INJECTION CAUDAL EPIDURAL WITH CATHETER, STEROID N/A 04/21/2019 Performed by Arnulfo Morgan MD at [facility] NERVE BLOCK Bilateral L 4/5, 5/ Bilateral 08/18/2019 Performed by Arnulfo Morgan MD at [facility] INJECTION MEDIAL BRANCH NERVE BLOCK Bilateral L 4/5, 5/ Bilateral 06/23/2019 Performed by Arnulfo Morgan MD at [facility] STEROID EPI 1 WITH SEDATION Right L 4, 5 NR Right 03/17/2019 Performed by Arnulfo Morgan MD at [facility] INJECTION STEROID EPI 1 WITH SEDATION: right L45 nroot Right 08/15/2018 Performed by Arnulfo Morgan MD at [facility] LEFT L4, AND 5 NERVE ROOT INJECTION 2 OF 2 Left 07/22/2018 Performed by Arnulfo Morgan MD at [facility] LEFT L4, AND L5 NERVE ROOT 1 OF 2 Left 07/04/2018 Performed by Arnulfo Morgan MD at [facility] PERCUTANEOUS CORONARY INTERVENTION SHUNT INSERTION TONSILLECTOMY AGE 4 Transcutaneous aortic valve replacement/Transfemoral/Kwan N/A 08/17/2023 Performed by Chava Norris MD at [facility] Valvuloplasty aortic N/A 06/03/2023 Performed by Chava Norris MD at [facility] Family History Problem Relation [...] min Stress: No Stress Concern Present (10/05/2022) [employer] [place] [employer] - Occupational Stress Questionnaire Feeling of Stress : Not at all Social Connections: Moderately Isolated (10/05/2022) Social Connection and Isolation Panel [NHANES] Frequency of Communication with Friends and Family: Never Frequency of Social Gatherings with Friends and Family: Never Attends Religion Services: More than 4 times per year [...] nephropathy, without long-term current use of insulin ([facility]) Signed by: KAIDEN Santana Monitor blood sugars four times daily and as needed clopidogreL 75 mg tablet Refills: 0 Dose: 75 mg Commonly known as: PLAVIX COMFORT EZ PEN NEEDLES 32 gauge x 5/16 needle Quantity: 200 each Refills: 6 For diagnoses: Type 2 diabetes mellitus with stage 4 chronic kidney disease, with long-term currentuse of insulin ([facility]) Dose: 4 applicator Signed by: KAIDEN Santana 4 applicators, miscellaneous, See admin instructions, 4 times daily injection Generic drug: pen needle, diabetic DEXCOM G6 DIRECTOR FOOD AND BEVERAGE misc Refills: 0 Dose: 1 Device Generic drug: blood-glucose meter,continuous DEXCOM G6 SENSOR device Refills: 0 Generic drug: blood-glucose sensor gabapentin 300 mg capsule Quantity: 180 capsule Refills: 1 Doctor's comments: 90 Day Supply. 1 refill For diagnoses: 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 mellitus ([facility]) Dose: 300 mg Signed by: KAIDEN Santana 300 mg, oral, 2 times daily Commonly known as: NEURONTIN hydroCHLOROthiazide 25 mg tablet Refills: 0 Dose: 25 mg Commonly known as: HYDRODIURIL insulin lispro 100 unit/mL insulin pen Refills: 0 For diagnoses: Mixed diabetic hyperlipidemia associated with type 2 diabetes mellitus ([facility]) Dose: 2 Units Signed by: RONNA Solis [...] nephropathy, without long-term current use of insulin ([facility]) Signed by: KAIDEN Santana Monitor blood sugars four times daily and as needed Commonly known as: onetouch ultrasoft * ONETOUCH DELICA PLUS LANCET 33 gauge misc Refills: 0 Generic drug: lancets letrozole 2.5 mg chemo tablet Quantity: 90 tablet Refills: 3 For diagnoses: Malignant neoplasm of upper-outer quadrant of right female breast, unspecified estrogen receptor status ([facility]) Dose: 2.5 mg Signed by: Dr. 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 Dose: 25 [...] partial remission, unspecified whether recurrent ([facility]) Dose: 100 mg Signed by: KAIDEN Santana 100 mg, oral, Daily Commonly known as: ZOLOFT SITagliptin phosphate 50 mg tablet Quantity: 90 tablet Refills: 1 For diagnoses: Diabetes mellitus type 2, insulin dependent ([facility]), Type 2 diabetes mellitus withstage 3b chronic kidney disease and hypertension ([facility]) Dose: 50 mg Signed by: KAIDEN Santana [...] this note were generated using voice recognition [employer] dictation software. Although every effort was made to ensure the accuracy of this automated nutrition worker, some errors in nutrition worker may have occurred. CC: Patient Care Team: KAIDEN Werner as PCP - General (Family Medicine) John Quiles MD (Nephrology) KAIDEN Hsu as Nurse Practitioner (Pulmonary Medicine) Madison Ye MD as Referring Physician (Endocrinology, Diabetes & Metabolism) Casimiro Muñoz MD as Consulting Physician (Hematology) PCP:Pam Stinson Referring MD: Pam Stinson AP* documented in this encounterSumma Health Akron CampusCaseRev [facility] [id number] Instructions* Patient Instructions* Casimiro Muñoz MD - 11/25/2023 2:30 PM EST Pet SCAN 02/2024. F/u in late 02/2024 to review results. Continue femara alone. Labs before appt: CBC, CMP, CA 15-3, CA 27.29. documented in this encounterSumma Health Akron CampusCaseRev [facility] [id number] History of Present illness Narrative* Rosario Strong RN - 11/25/2023 2:16 PM EST Patient is here for follow up with Dr. Muñoz. Orders received for pet ct in February with cbc cmp ca 15-3 and ca27-29. Follow up scheduled in late February. Patient given calendar, verbalized understanding of future appointments. documented in this encounterSumma Health Akron Campus01-27-2023 History of Present illness Narrative* Stefanie Lu RN - 12/11/2022 11:07 AM EST Patient discharged home. Discharge instructions were explained and given to the patient, patient verbalized understanding. All belongings were sent with the patient. No signs of acute distress noted,no concerns voiced. * Sashadanyel Maldonado, PT - 12/10/2022 11:46 AM EST Physical Therapy Facility/Department: [address] Physical Therapy Name: Cuca Dee : [...] 12/09/2022 1:06 PM EST Physical Therapy Facility/Department: [address] STE[place]OWN Daily Treatment Note NAME: Cuca [...] CASILLAS PTA * Radha Moya APRN - CLOTH HAULER - 12/09/2022 11:13 AM EST Images from the original note were not included. [employer] Labor Contractor Progress Note Date: 12/09/2022 Patient name: Cuca [...] a max pressure of: 12 graciela. [employer] [place] 3.0 x 12 CÉSAR. 1 inflation(s) to [...] 182 cm. Number of passes: 1. [employer] [place] 2.5 x 12 CÉSAR. 1 inflation(s) to [...] stable. Plans for TAVR work-up as OP [place] Labor [employer]or [facility]. [phone] * Princess Puente PT - 12/08/2022 2:57 PM EST Physical Therapy Facility/Department: [address] [facility] Initial Assessment Name: [...] pt repositioned in bed for comfort upon marketing writer's exit. Subjective Subjective: RN and pt [...] rollator at baseline) Transfer Assistance: Independent Active Shale Planer Operator Helper: No Mode of Transportation: Friends, Cab [...] able to sit EOB CGA AM-PAC Score AM-[facility] Inpatient Mobility Raw Score : 21 [...] Puente PT * Rita Leos APRN - CLOTH HAULER - 12/08/2022 1:02 PM EST Images from the original note were not included. [employer]or Progress Note Date: 12/08/2022 Patient name: Cuca [...] a max pressure of: 12 graciela. [employer] [place] 3.0 x 12 CÉSAR. 1 inflation(s) to [...] 182 cm. Number of passes: 1. [employer] [place] 2.5 x 12 CÉSAR. 1 inflation(s) to [...] Plans for TAVR work-up as OP [employer] [facility]. [phone] * Fany Bhakta RN - 12/08/2022 11:10 AM EST Public Speaking Instructor discussed the next step in the TAVR process, an appointment with the cardiothoracic surgeon,with patient and daughter at bedside in [facility]. Office number given to daughter, she will call to schedule in the next couple days. Public Speaking Instructor's contact number also given. * Joelle Enrique RN - 12/08/2022 10:00 AM EST Patient declined AM glucose check. She has Dexcom meter in place showing glucose of 99. [facility] policy of checking glucose with our glucometer [...] via stretcher. Right groin assessed byHeather and marketing writer. Groin remains soft. * Flory Shelby [...] 3:00 PM EST Manual pressure held per marketing writer for [address] Martinez at [...] of 2. Bilateral groin areas clipped with marketing writer and Maggi estrada present. Daughter Ismael at bedside with patient. History and physical needs updated. * Keely Priest RN - 12/07/2022 1:30 PM EST Received post cardiac cath procedure to [facility] room 10. Assessment obtained. Restrictions reviewed with patient. Post procedure pathway initiated. Right site noted to have small hematoma, manual pressure held by [place]. Band aid dry and intact. Family at side. Patient without complaints. Head of bed flat with right leg straight. documented in this encounterBON Space Ape [facility] T[facility] Work Phone: 1(311) 438-717201-23-2023 Note [facility] Vascular Lower Extremities Arterial Duplex Procedure Patient Name LUIZ Date of Study 12/07/2022 CUCA Date of 1945 Gender Female Age 77 year(s) Race Room Number 0501 Height: 65 inch, 165.1 cm Corporate ID # [id number] Weight: 208 pounds, 94.3 kg Patient BSA: 2.01 m^2 BMI: 34.61 kg/m^2 MR # [id number] Drier Helper Whit Gan Reji Interpreting Physician Darnell Monique [...] ! ! ! ! ! +---------++-----+-----+------+----+------++---+-----+------+----+---------+MHPN STV [id number] History of Present illness Narrative* Keely Priest, GABBY - 11/24/2022 1:00 PM EST Patient admitted, consent signed and questions answered. Patient ready for procedure. Call light toreach with side rails up 2 of 2. Bilateral groin areas clipped with marketing writer and Jose PIERRE present. Daughter Ileana at bedside with patient. History and physical needs updated. documented in this encounterMeMeMe Phone: [phone]) 906-721205-06-2021 NotePROCEDURE: XR FOOT LT MIN 3 VIEWS COMPARISON: None. HISTORY: Pain FINDINGS: BONES:No acute fracture or dislocation. Persistent flexion of the toes limits their evaluation. Mild to moderate degenerative changes with joint space narrowing and marginal osteophyte formation, most significant at the first metatarsophalangeal joint where ifvr-sx-eosl endplate is observed SOFT TISSUES:Negative. No visible soft tissue swelling. EFFUSION:None visible. OTHER: Negative. IMPRESSION: Moderate degenerative changes, no acute fracture Electronically authenticated by: GIOVANNY NICOLE Date: 2021-03-20 08:29[facility] note* Clinical Note Date No Information [facility] Work Phone: Discharge summary* Clinical Note Date No Information [facility] Work Phone: Evaluation note* Diagnosis Severe aortic valve stenosis- Primary Aortic valve disorders documented in this encounter [employer] Phone: evalvizlmm note* Diagnosis RAIN (acute kidney injury) (HCC)- Primary Acute kidney failure, unspecified documented in this encounter [employer] Phone: evaluation note* Diagnosis Severe aortic valve [...] kidney disease (HCC) 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 documented in this encounter [employer] Phone: evaluation note* Diagnosis Aortic valve stenosis, etiology of cardiac valve disease unspecified documented in this encounter [facility] [employer] Phone: evalajciii note* Diagnosis Aortic valve stenosis, etiology of cardiac valve disease unspecified documented in this encounter [facility] [employer] Phone: evaluation note* Diagnosis Nonrheumatic aortic valve stenosis- Primary S/p TAVR (transcatheter aortic valve replacement), bioprosthetic 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 documented in this encounter [facility]* Diagnosis Mixed diabetic hyperlipidemia associated with type 2 diabetes mellitus ([facility]) - Primary Insomnia, unspecified type Elevated troponin level Other abnormal blood chemistry Recurrent UTI Urinary tract infection, site not specified documented in this encounter [facility]Evaluation [facility]* Diagnosis Malignant neoplasm of upper-outer quadrant of right breast in female, estrogen receptor positive ([facility])- Primary Metastasis to bone ([facility]) Secondary malignant neoplasm of bone and bone marrow documented in this encounter [facility] note* Diagnosis Malignant neoplasm of upper-outer quadrant of right female breast, unspecified estrogen receptor status ([facility])- Primary documented in this encounter [facility] note* Diagnosis Malignant neoplasm of upper-outer quadrant of right female breast, unspecified estrogen receptor status ([facility])- Primary documented in this encounter [facility]* Diagnosis Malignant neoplasm of upper-outer quadrant of right female breast, unspecified estrogen receptor status ([facility])- Primary documented in this encounter [facility] note* Diagnosis Insomnia, unspecified type documented in this encounter [facility]* Diagnosis Upper respiratory tract infection, unspecified type- Primary Normal pressure hydrocephalus ([facility]) 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 ([facility]) PVD (peripheral vascular disease) ([facility]) Unspecified peripheral vascular disease 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 mellitus ([facility]) Stage 3b chronic kidney disease ([facility]) Major depressive disorder in partial remission, unspecified whether recurrent ([facility]) Essential hypertension Unspecified essential hypertension GERD without esophagitis Esophageal reflux 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 ([facility]) documented in this encounter [facility]* Diagnosis Pneumonia due to other specified organism- Primary documented in this encounter [facility]* Diagnosis Malignant neoplasm of upper-outer quadrant of right female breast, unspecified estrogen receptor status (CMS-HCC) documented in this encounter [facility]* Diagnosis Major depressive disorder in partial remission, unspecified whether recurrent ([facility]) documented in this encounter [facility]* Diagnosis Essential hypertension Unspecified essential hypertension Major depressive disorder in partial remission, unspecified whether recurrent ([facility]) documented in this encounter [facility]* Diagnosis Acute cystitis without hematuria- Primary Urge incontinence of urine Urge incontinence documented in this encounter [facility]* Diagnosis Hypoglycemia- Primary Hypoglycemia, unspecified Mild intermittent reactive airway disease with acute exacerbation documented in this encounter [facility]* Diagnosis Hypoglycemia- Primary Hypoglycemia, unspecified Need for influenza vaccination Need for prophylactic vaccination and inoculation against influenza Altered mental status, unspecified altered mental status type documented in this encounter [facility]* Diagnosis Beverly infection of flexural skin- Primary Candidiasis of skin and nails documented in this encounter [facility]* Diagnosis Malignant neoplasm of upper-outer quadrant of right breast in female, estrogen receptor positive ([facility])- Primary documented in this encounter [facility]* Diagnosis 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 mellitus ([facility]) documented in this encounter [facility]* Diagnosis Insomnia, unspecified type- Primary Moderate episode of recurrent major depressive disorder ([facility]) Stage 3b chronic kidney disease ([facility]) documented in this encounter [facility]* Diagnosis Malignant neoplasm of upper-outer quadrant of right breast in female, estrogen receptor positive (CMS-HCC)- Primary Metastasis to bone (CMS-HCC) Secondary malignant neoplasm of bone and bone marrow documented in this encounter [facility]* Type Assessment Date No Information [facility] Work Phone: Evaluation note* Diagnosis MRSA (methicillin resistant Staphylococcus aureus)- Primary Methicillin resistant Staphylococcus aureus in conditions classified elsewhere and of unspecified site Staphylococcus aureus bacteremia with sepsis ([facility]) documented in this encounter [facility]* Diagnosis Staphylococcus aureus bacteremia with sepsis ([facility])- Primary documented in this encounter [facility]* Diagnosis Staphylococcus aureus bacteremia with sepsis ([facility])- Primary MRSA (methicillin resistant Staphylococcus aureus) Methicillin resistant Staphylococcus aureus in conditions classified elsewhere and of unspecified site documented in this encounter [facility]* Diagnosis Staphylococcus aureus bacteremia with sepsis ([facility])- Primary MRSA (methicillin resistant Staphylococcus aureus) Methicillin resistant Staphylococcus aureus in conditions classified elsewhere and of unspecified site documented in this encounter [facility]* Diagnosis Staphylococcus aureus bacteremia with sepsis ([facility])- Primary MRSA (methicillin resistant Staphylococcus aureus) Methicillin resistant Staphylococcus aureus in conditions classified elsewhere and of unspecified site documented in this encounter [facility]* Diagnosis Staphylococcus aureus bacteremia with sepsis ([facility])- Primary MRSA (methicillin resistant Staphylococcus aureus) Methicillin resistant Staphylococcus aureus in conditions classified elsewhere and of unspecified site documented in this encounter [facility]* Diagnosis Staphylococcus aureus bacteremia with sepsis ([facility])- Primary MRSA (methicillin resistant Staphylococcus aureus) Methicillin resistant Staphylococcus aureus in conditions classified elsewhere and of unspecified site documented in this encounter [facility]* Diagnosis Staphylococcus aureus bacteremia with sepsis ([facility])- Primary MRSA (methicillin resistant Staphylococcus aureus) Methicillin resistant Staphylococcus aureus in conditions classified elsewhere and of unspecified site documented in this encounter [facility]* Diagnosis Staphylococcus aureus bacteremia with sepsis ([facility])- Primary MRSA (methicillin resistant Staphylococcus aureus) Methicillin resistant Staphylococcus aureus in conditions classified elsewhere and of unspecified site documented in this encounter [facility]* Diagnosis Staphylococcus aureus bacteremia with sepsis ([facility])- Primary MRSA (methicillin resistant Staphylococcus aureus) Methicillin resistant Staphylococcus aureus in conditions classified elsewhere and of unspecified site documented in this encounter [facility]* Diagnosis Moderate major depression ([facility])- Primary Major depressive disorder, single episode, moderate Insomnia, unspecified type Normal pressure hydrocephalus ([facility]) Idiopathic normal pressure hydrocephalus ([facility]) Acute on chronic diastolic heart failure ([facility]) Acute on chronic diastolic heart failure Diabetes mellitus type 2, insulin dependent ([facility]) documented in this encounter [facility]* Diagnosis Acute respiratory failure with hypoxia ([facility])- Primary Acute respiratory failure with hypoxia ([facility]) Nondisplaced fracture of lesser trochanter of right femur, initial encounter for closed fracture ([facility]) Generalized weakness Closed fracture of right hip, initial encounter ([facility]) Hypoxia Hypoxemia Type 2 diabetes mellitus with hypoglycemia without coma, with long-term current use of insulin ([facility]) 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 mellitus ([facility]) Mixed diabetic hyperlipidemia associated with type 2 diabetes mellitus ([facility]) Obstructive sleep apnea syndrome Obstructive sleep apnea (adult) (pediatric) Essential (primary) hypertension Unspecified essential hypertension Stage 3b chronic kidney disease ([facility]) Type 2 diabetes mellitus with diabetic chronic kidney disease ([facility]) Closed fracture of right hip ([facility]) Nondisplaced fracture of lesser trochanter of right femur, initial encounter for closed fracture ([facility]) Hypomagnesemia Disorders of magnesium metabolism Iron deficiency anemia Unspecified iron deficiency anemia Acute on chronic diastolic congestive heart failure ([facility]) [facility]* Diagnosis Hospital discharge follow-up- Primary Other follow-up examination Closed fracture of right hip, sequela documented in this encounter [facility]* Diagnosis Acute right hip pain- Primary Acute pain of both hips Closed avulsion fracture of right hip with routine healing, subsequent encounter [facility]No assessment information availableUc [facility]tr Work Phone: Evaluation note* Diagnosis Intractable nausea and vomiting- Primary Adnexal mass Other specified symptom associated with female genital organs Intractable nausea and vomiting Type 2 diabetes mellitus without complication, without long-term current use of insulin ([facility]) Generalized weakness Hypomagnesemia Disorders of magnesium metabolism Iron deficiency anemia due to chronic blood loss Iron deficiency anemia secondary to blood loss (chronic) 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 mellitus ([facility]) Iron deficiency anemia Unspecified iron deficiency anemia Chronic diastolic congestive heart failure ([facility]) Weakness Other malaise and fatigue Adnexal mass Other specified symptom associated with female genital organs documented in this encounter [facility] note* Diagnosis Chronic diastolic congestive heart failure ([facility])- Primary Hypertensive heart and chronic kidney disease with heart failure and stage 1 through stage 4 chronic kidney disease, or unspecified chronic kidney disease ([facility]) Intractable nausea and vomiting Urinary tract infection without hematuria, site unspecified documented [facility] encounter [facility]* Diagnosis Acute right hip pain- Primary Closed avulsion fracture of right hip with routine healing, subsequent encounter Intertrochanteric fracture of right hip, closed, initial encounter (HCC) documented in this encounter [facility] HealthcareEvaluation note* Diagnosis Hypertensive heart and chronic kidney disease with heart failure and stage 1 through stage 4 chronic kidney disease, or unspecified chronic kidney disease ([facility])- Primary Chronic obstructive pulmonary disease, unspecified COPD type ([facility]) Lumbar back pain with radiculopathy affecting left lower extremity Spinal stenosis of lumbar region with neurogenic claudication Closed fracture of right hip, sequela Rhinitis, unspecified type documented [facility]* Diagnosis Pathological fracture of right hip with routine healing, unspecified pathological cause, subsequentencounter- Primary Closed nondisplaced fracture of pelvis with routine healing, unspecified part of pelvis, subsequentencounter Mixed diabetic hyperlipidemia associated with type 2 diabetes mellitus ([facility]) Hypertensive heart and chronic kidney disease with heart failure and stage 1 through stage 4 chronic kidney disease, or unspecified chronic kidney disease ([facility]) documented in this encounter [facility]* Diagnosis Chronic diastolic congestive heart failure ([facility])- Primary Pathological fracture of right hip with routine healing, unspecified pathological cause, subsequentencounter Closed fracture of right hip, sequela Closed nondisplaced fracture of lesser trochanter of right femur with delayed healing Other abnormalities of gait and mobility Hypertensive heart and chronic kidney disease with heart failure and stage 1 through stage 4 chronic kidney disease, or unspecified chronic kidney disease ([facility]) [facility] Diagnosis 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 mellitus ([facility]) Insomnia, unspecified type [facility] Diagnosis 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, subsequent encounter- Primary Lesion of left femur Lesion of left femur- Primary Lesion of left femur [facility]* Diagnosis Lesion of left femur- Primary 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 Chronic diastolic congestive heart failure ([facility]) S/p TAVR (transcatheter aortic valve replacement), 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 and stage 1 through stage 4 chronic kidney disease, or unspecified chronic kidney disease ([facility]) [facility] Diagnosis Chronic obstructive pulmonary disease, unspecified COPD type ([facility])- Primary Hypertensive heart and chronic kidney disease with heart failure and stage 1 through stage 4 chronic kidney disease, or unspecified chronic kidney disease ([facility]) Chronic diastolic congestive heart failure ([facility]) Pathological fracture, hip, unspecified, subsequent encounter for fracture with routine healing [facility] Diagnosis 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, subsequent encounter- Primary [facility]* Diagnosis Lesion of left femur- Primary 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 documented in this encounter [facility]* Diagnosis Closed nondisplaced fracture of lesser trochanter of right femur with delayed healing- Primary Stage 3b chronic kidney disease ([facility]) Type 2 diabetes mellitus with stage 4 chronic kidney disease, without long-term current use of insulin ([facility]) Chronic diastolic congestive heart failure ([facility]) [facility] Diagnosis Closed nondisplaced fracture of lesser trochanter of right femur with delayed healing- Primary Confusion Unspecified psychosis Other abnormalities of gait and mobility Chronic obstructive pulmonary disease, unspecified COPD type ([facility]) Hypertensive heart and chronic kidney disease with heart failure and stage 1 through stage 4 chronic kidney disease, or unspecified chronic kidney disease ([facility]) Anemia, unspecified type [facility]* Diagnosis 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 ([facility])- Primary Hypertensive heart and chronic kidney disease with heart failure and stage 1 through stage 4 chronic kidney disease, or unspecified chronic kidney disease ([facility]) Nausea and vomiting, unspecified vomiting type [facility]* Clinical Note Date No Information [facility] Work Phone: Hospital Discharge instructions* Attachments The following attachments cannot be sent through Care Everywhere. * PCI (Percutaneous Coronary Intervention): Post-op (Bhutanese) [facility] Work Phone: Hospital Discharge instructionsNot on filedocumented in this encounterProOur Lady Of Mercy HospitalCaseRev Health SystemInstructionsNot on filedocumented in this encounterProOur Lady Of Mercy HospitalCaseRev Health SystemInstructionsNot on filedocumented in this encounterProOur Lady Of Mercy HospitalCodenvy SystemInstructionsNot on filedocumented in this encounterProDale Medical Center CaroGen SystemInstructions* Attachments The following attachments cannot be sent through Care Everywhere. * Carbohydrate Counting Diet (Bhutanese) documented in this encounterProOur Lady Of Mercy HospitalCodenvy SystemInstructionsNot on file documented in this encounterProOur Lady Of Mercy HospitalCodenvy SystemInstructionsNot on file documented in this encounterProOur Lady Of Mercy HospitalCodenvy SystemInstructionsNot on file documented in this encounterProOur Lady Of Mercy HospitalCodenvy SystemInstructions* Attachments The following attachments cannot be sent through Care Everywhere. * Bacterial Upper Respiratory Infection, Adult (Bhutanese) documented in this encounterProOur Lady Of Mercy HospitalCodenvy SystemInstructions* Attachments The following attachments cannot be sent through Care Everywhere. * Pneumonia in adults (Bhutanese) documented in this encounterProOur Lady Of Mercy HospitalCodenvy SystemInstructionsNot on file documented in this encounterProOur Lady Of Mercy HospitalCodenvy SystemInstructionsNot on file documented in this encounterProTilth Beauty SystemInstructionsNot on file documented in this encounterProOur Lady Of Mercy HospitalCodenvy SystemInstructionsNot on file documented in this encounterProOur Lady Of Mercy HospitalCodenvy SystemInstructions* Attachments The following attachments cannot be sent through Care Everywhere. * Urinary Tract Infection Discharge Instructions, Adult (Bhutanese) documented in this encounterProOur Lady Of Mercy HospitalCodenvy SystemInstructions* Attachments The following attachments cannot be sent through Care Everywhere. * Low blood sugar in people without diabetes (Bhutanese) documented in this encounterProOur Lady Of Mercy HospitalCodenvy SystemInstructionsNot on file documented in this encounterProTilth Beauty SystemInstructionsNot on file documented in this encounterProOur Lady Of Mercy HospitalCodenvy SystemInstructionsNot on file documented in this encounterProOur Lady Of Mercy HospitalCodenvy SystemInstructions* Attachments The following attachments cannot be sent through Care Everywhere. * Flu vaccine (Bhutanese) documented in this encounterProOur Lady Of Mercy HospitalCodenvy SystemInstructionsNot on file documented in this encounterProTilth Beauty SystemInstructionsNot on file documented in this encounterProOur Lady Of Mercy HospitalCodenvy SystemInstructionsNot on file documented in this encounterProDale Medical Center CaroGen SystemInstructions* Attachments The following attachments cannot be sent through Care Everywhere. * Insomnia (Bhutanese) documented in this encounterProMedica Health SystemInstructionsNot on file documented in this encounterProMedica Health SystemInstructionsNot on file documented in this encounterProMedica Health SystemInstructionsNot on file documented in this encounterProMedica Health SystemInstructionsNot on file documented in this encounterProMedica Health SystemInstructionsNot on file documented in this encounterProMedica Health SystemInstructions* Attachments The following attachments cannot be sent through Care Everywhere. * Heart failure (Bhutanese) documented in this encounterProMedica Health SystemInstructionsNot on [...] Health SystemInstructionsNot on file documented in this encounterProxoompark Health SystemProgress note* Clinical Note Date No Information [facility] Work Phone: Reason for referral (narrative)* Reason For Referral No Information [facility] Phys[facility] Work Phone: Reason for referral (narrative)No reason for referral information availableBrecksville Va [facility] Work Phone: Reason for visit Narrative* Auth/CertSpecialty Diagnoses / ProceduresReferred By ContactReferred To Contact Diagnoses weakness [place] [address] [address] [place] [address] Phone: tel: fax: Referral IDStatusReasonStart DateExpiration DateVisits RequestedVisits [id number] [facility] Advance Directives TypeDate RecordedPatient RepresentativeExplanationACP-Advance DirectiveACP-Power of [...] InactivatedCommentsFull Code12/07/2022 11:24 AM12/11/2022 1:10 PMTypeDate RecordedPatient Exhibit Specialist ExplanationDurable Power of Nanhibhp39/7/2022 2:24 PMDNR Physician Order 10/21/2022 2:24 PMLiving Will01/30/2021 12:07 PMDurable Power of Attorney01/30/2021 12:07 PMLiving Will01/29/2021 6:19 AMAdvance Directive01/29/2021 6:18 AMDNR Physician Order11/03/2019 1:27 PMDate ActivatedDate InactivatedComments 11/09/2024 4:30 AMDate ActivatedDate VjjjrnucvdgIjqloaiw60/13/2024 10:46 PM 10/30/2024 6:52 PMDate ActivatedDate PmfyzzlristRvrhgnbj27/9/2024 8:42 AM 08/24/2024 2:23 PMDate ActivatedDate InactivatedComments08/12/2024 3:34 AM 08/14/2024 8:05 PMDate ActivatedDate InactivatedComments06/13/2024 10:07 AM 2024 4:05 PMDate ActivatedDate PmjhxwjodmpYokoamkb34/26/2024 4:30 AM 11/10/2024 3:17 PMDate ActivatedDate InactivatedComments03/28/2023 5:07 PM 04/01/2023 3:32 PMDate ActivatedDate QyupikmftcyBetpdjqz09/22/2022 8:43 AM 10/06/2022 8:41 PMDate ActivatedDate WpsypjtpbaaFenfcbjr02/21/2022 8:37 AM 10/06/2022 8:43 AMDate ActivatedDate InactivatedComments05/26/2022 4:03 PM 05/28/2022 5:26 PMDate ActivatedDate InactivatedComments11/29/2020 4:02 PM 12/01/2020 6:56 PMTypeDate RecordedPatient RepresentativeExplanationDurable Power of Nqqmuuag78/7/2022 2:24 PMDNR Physician Order10/21/2022 2:24 PMLiving Will [...] StatusDate ActivatedDate InactivatedCommentsDNR Comfort Care Arrest (DNR-CCA) [place] 10/06/2022 8:43 AM10/06/2022 8:41 PMFull Code10/05/2022 8:37 AM10/06/2022 8:43 AMFull Code05/26/2022 4:03 PM05/28/2022 5:26 PMFull Code11/29/2020 4:02 PM12/01/2020 6:56 PMDate ActivatedDate InactivatedComments06/13/2024 10:07 AM8 4:05 PM Date ActivatedDate InactivatedComments03/28/2023 5:07 PM04/01/2023 3:32 PMDate ActivatedDate KatogejimbqZjxietnp88/22/2022 8:43 AM10/06/2022 8:41 PMDate ActivatedDate XffufvzxbobYscvvexn88/21/2022 8:37 AM10/06/2022 8:43 AMDate ActivatedDate InactivatedComments05/26/2022 4:03 PM05/28/2022 5:26 PMDate ActivatedDate InactivatedComments08/12/2024 3:34 AM08/14/2024 8:05 PMDate ActivatedDate InactivatedComments06/13/2024 10:07 AM8 4:05 PMDate ActivatedDate InactivatedComments03/28/2023 5:07 PM04/01/2023 3:32 PMDate ActivatedDate FdtrjyjsrypNtxesfjr74/22/2022 8:43 AM10/06/2022 8:41 PMDate ActivatedDate NqmrqotsfjyMlxdlrtd58/21/2022 8:37 AM10/06/2022 8:43 AMDate ActivatedDate HhwneclqldaTsobnuuw07/9/2024 8:42 AM08/24/2024 2:23 PMDate ActivatedDate InactivatedComments08/12/2024 3:34 AM08/14/2024 8:05 PMDate ActivatedDate InactivatedComments06/13/2024 10:07 AM2024 4:05 PMDate ActivatedDate InactivatedComments03/28/2023 5:07 PM04/01/2023 3:32 PMDate ActivatedDate TvwmdfqmxpjGsvyfvfl74/22/2022 8:43 AM10/06/2022 8:41 PM Directive Yes / No Effective Date File Name No Information Date ActivatedDate InactivatedComments02/14/2025 11:06 PMDate ActivatedDate InactivatedComments02/12/2025 8:06 PM02/14/2025 10:55 PMDate ActivatedDate RlinbegxlpzKdeamlua18/26/2024 4:30 AM11/10/2024 3:17 PMDate ActivatedDate QvpwysjbcspNyctwndc35/13/2024 10:46 PM10/30/2024 6:52 PMDate ActivatedDate XmubtypbboeXgjqttbs03/9/2024 8:42 AM08/24/2024 2:23 PMDate ActivatedDate InactivatedComments02/14/2025 11:06 PM02/24/2025 3:32 PMDate ActivatedDate InactivatedComments02/14/2025 11:06 PM02/24/2025 3:32 PMDate ActivatedDate InactivatedComments02/12/2025 8:06 PM02/14/2025 10:55 PMDate ActivatedDate NeqwigebbscVzpmrony59/26/2024 4:30 AM11/10/2024 3:17 PMDate ActivatedDate RnxsoigfaorYoaeqsob24/13/2024 10:46 PM10/30/2024 6:52 PMDate ActivatedDate NxnqultilwxBdsefazq39/9/2024 8:42 AM08/24/2024 2:23 PMDate ActivatedDate InactivatedComments03/16/2025 3:53 PM03/19/2025 2:00 PMDate ActivatedDate InactivatedComments02/14/2025 11:06 PM02/24/2025 3:32 PMDate ActivatedDate InactivatedComments02/12/2025 8:06 PM02/14/2025 10:55 PMDate ActivatedDate MmzpcsuphpgQbnfdkaw24/26/2024 4:30 AM11/10/2024 3:17 PMDate ActivatedDate DgqwockiwtaQdjcjjkd13/13/2024 10:46 PM10/30/2024 6:52 PMDate ActivatedDate InactivatedComments03/16/2025 3:53 PM03/19/2025 2:00 PMDate ActivatedDate InactivatedComments02/14/2025 11:06 PM02/24/2025 3:32 PMDate ActivatedDate InactivatedComments02/12/2025 8:06 PM02/14/2025 10:55 PMDate ActivatedDate WbdtxlwsqjrGvsvholh24/26/2024 4:30 AM11/10/2024 3:17 PMDate ActivatedDate AbihwtykhebMjsizzmk29/13/2024 10:46 PM10/30/2024 6:52 PMTypeDate RecordedPatient RepresentativeExplanationDurable Power of Attorney03/30/2025 9:23 AMDurable Power of Xovyrnfw99/7/2022 2:24 PMDNR Physician Order10/21/2022 2:24 PMLiving Will01/30/2021 12:07 PMDurable Power of Attorney01/30/2021 12:07 PMLiving Will 01/29/2021 6:19 AMAdvance Directive01/29/2021 6:18 AMDNR Physician Order11/03/2019 1:27 PMTypeDate RecordedPatient RepresentativeExplanationDurable Power of Attorney03/30/2025 9:23 AMDurable Power of Gcmvulpu92/7/2022 2:24 PMDNR Physician Order10/21/2022 2:24 PMLiving Will01/30/2021 12:07 PMDurable Power of [employer] 01/30/2021 12:07 PMLiving Will01/29/2021 6:19 AMAdvance Directive01/29/2021 6:18 AM DNR Physician Order11/03/2019 1:27 PMDate ActivatedDate InactivatedComments 05/13/2025 2:45 PM05/15/2025 7:30 PMDate ActivatedDate InactivatedComments03/16/2025 3:53 PM03/19/2025 2:00 PMDate ActivatedDate InactivatedComments02/14/2025 11:06 PM 02/24/2025 3:32 PMDate ActivatedDate InactivatedComments02/12/2025 8:06 PM02/14/2025 10:55 PMDate ActivatedDate ZhquedrghegFmrrsuob69/26/2024 4:30 AM11/10/2024 3:17 PMDate ActivatedDate InactivatedComments05/13/2025 2:45 PM05/15/2025 7:30 PMDate ActivatedDate InactivatedComments03/16/2025 3:53 PM03/19/2025 2:00 PMDate Activated Date InactivatedComments02/14/2025 11:06 PM02/24/2025 3:32 PMDate ActivatedDate InactivatedComments02/12/2025 8:06 PM02/14/2025 10:55 PMDate ActivatedDate ScmpvwewcubSzhbfksc01/26/2024 4:30 AM11/10/2024 3:17 PM Advance Directive Response [...] MORP CARD ONLY 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 APRN - [employer] [address] [place] [address] Referral IDStatusReasonAllakaket DateExpiration DateVisits RequestedVisits [id number]/27/20235/27/078172PipanxahkNtktcdrqw / Procedures Referred By ContactReferred To ContactRadiology Diagnoses Aortic valve stenosis, etiology of cardiac valve disease unspecified Procedures CTA CHEST ABDOMEN PELVIS W CONTRAST 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, SALES REPRESENTATIVE [employer] - [employer] [address] [place] [address] Referral IDStatusReasonart DateExpiration DateVisits RequestedVisits [id number]/27/20235/27/865313AzhmsemhvGfxgytxsf / Procedures Referred By ContactReferred To ContactRadiology Diagnoses Malignant neoplasm of upper-outer quadrant of right female breast, unspecified estrogen receptor status (CMS-HCC) Malignant neoplasm of upper-outer quadrant of right breast in female, estrogen receptor positive (CMS-HCC) Procedures PET CT skull to thigh Casimiro Muñoz MD [address] [place] [address] Referral IDStatusReasonStart DateExpiration DateVisits RequestedVisits [id number] Review/ Chief Complaint and Reason for Visit Chief Complaint Admit Date Unknown June 25, 2025 1: 36pm Additional Source Comments INFORMATION SOURCE (unrecogn ized section and content) DATE CREATED AUTHOR 03/27/2021 [facility] DATE CREATED AUTHOR AUTHOR'S ORGANIZ ATION 04/09/2021 [facility] DATE CREATED AUTHOR AUTHOR'S ORGANIZ ATION 04/06/[address] [facility] DATE CREATED AUTHOR AUTHOR'S ORGANIZ ATION 01/22/2023 [facility] DATE CREATED AUTHOR AUTHOR'S ORGANIZ ATION 02/12/2025 [facility] DATE CREATED AUTHOR AUTHOR'S ORGANIZ ATION 06/07/2025 [facility] DATE CREATED AUTHOR AUTHOR'S ORGANIZ ATION 06/29/2025 [facility] DATE CREATED AUTHOR AUTHOR'S ORGANIZ ATION 07/07/2025 [facility] DATE CREATED AUTHOR AUTHOR'S ORGANIZ ATION 07/15/2025 [facility] DATE CREATED AUTHOR AUTHOR'S ORGANIZ ATION 08/06/[address] [facility] DATE CREATED AUTHOR AUTHOR'S ORGANIZ ATION 08/24/2025 [facility] DATE CREATED AUTHOR AUTHOR'S ORGANIZ ATION 09/04/2025 [facility] Reason for Visit (unrecogniz ed section and content) SpecialtyDiagnoses / ProceduresReferred By ContactReferred To Contact [facility] [address] [place] [address] Referral IDStatusReasonStart DateExpiration DateVisits RequestedVisits [id number] IDStatusReasonStart DateExpiration DateVisits RequestedVisits [id number] / ProceduresReferred By ContactReferred To ContactRadiology Diagnoses Aortic valve stenosis, etiology of cardiac valve disease unspecified Procedures CT CARDIAC W C STC MORP CARD ONLY 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, SALES REPRESENTATIVE [employer] - [employer] [address] [place] [address] Referral IDStatusReasonStart DateExpiration DateVisits RequestedVisits [id number]/27/20235/27/121560OjpucqberOepehzrrp / Procedures Referred By ContactReferred To ContactRadiology Diagnoses Aortic valve stenosis, etiology of cardiac valve disease unspecified Procedures CTA CHEST ABDOMEN PELVIS W CONTRAST 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, SALES REPRESENTATIVE [employer] - [employer] [address] [place] [address] Referral IDStatusReasonStart DateExpiration DateVisits RequestedVisits [id number]/27/20235/27/534753WzjedbFjhvq DateCommentsHospital Follow-up4ReasonComments[facility] ELEVATED TROPONINReasonCommentstc Oct, [facility]MedicaReasonCommentsFollow-upReasonOnset DateCommentsMed Gjvaoo144ReasonCommentsCoughNasal CongestionReason Commentsdischarge / bethezdaReasonCommentsMed RefillReasonOnset DateCommentsMed Pohled064ReasonOnset DateCommentsMed Mkvevq744ReasonComments incontinenceReasonOnset DateCommentsTransition Of Care4ReasonComments Med Change RequestReasonCommentstcmReasonOnset DateCommentsMed Ybrtqa8701/18/2025 ReasonCommentsretaining waterInsomniaReasonOnset DateCommentscritical lab 02/18/2025ReasonCommentsOutpatient InfusionDaptomycinReasonCommentsOutpatient InfusionIV DaptomycinReasonCommentsOutpatient InfusiondaptomycinReasonComments Outpatient InfusionDaptomycinLabs OnlyCbc bmp cpkReasonCommentsfollow upReason CommentsBack PainPt presents via ems for right sided back pain from sciatica. Was here yesterday. Daughter called EMS for transport. Pt denies any SOB or CP, but presents at 90% spo2 on 3L/NC.SpecialtyDiagnoses / ProceduresReferred By ContactReferred To Contact Diagnoses Hypoxia Acute respiratory failure with hypoxia ([facility]) [facility] [address] [place] [address] Phone: tel: fax: Referral IDStatusReasonStart DateExpiration DateVisits RequestedVisits [id number]-fqOqrrsmhyd, Hairline Fracture of hip. [facility]ReasonCommentsPainReasonOnset Date CommentsOTC Tylenol not kkampaf7106/18/2025ReasonOnset DateCommentsAppointment 07/05/2025ReasonOnset DateCommentswants to know if she can do outpatient wants to be vbneydcy02/07/2025ReasonOnset GnndLfcstryzDmyzezpamgl94/10/2025ReasonOnset DateCommentsMed Drlaif5107/30/2025ReasonOnset DateCommentsMed Nnszfi4008/01/2025 ReasonCommentsPost-opS/P R Femur IMN / no xr / tiny out..Post-opReason CommentsPost-ops/p L proph. IMN hip / no xr / tiny out; 1 month out R IMN hip / xr,Post-opRates pain as 5 and achy Care Teams (unrecognized sec tion and content) Team MemberRelationshipSpecialtyStart DateEnd Date Michael Duarte [facility] - [facility] Ncpmxchk90/15/22Team MemberRelationshipSpecialtyStart Date End Date Michael Duarte P[facility] - [facility] Czcoaxih13/15/22Team MemberRelationshipSpecialtyStart Date End Date Michael Duarte PCP - GeneralFamily Nwpfvvux50/15/22Team MemberRelationshipSpecialtyStart Date End Date Michael Duarte PCP - GeneralFamily Wqqzvyzw33/15/22Team MemberRelationshipSpecialtyStart Date End Date Michael Duarte PCP - GeneralFamily Wnmczzxc70/15/22Team MemberRelationshipSpecialtyStart Date End Date Pam Stinson, SALES REPRESENTATIVE [employer] - [employer] [address] [place] [address] PCP - General01/15/23Team MemberRelationshipSpecialtyStart DateEnd Date Pam Stinson, SALES REPRESENTATIVE [employer] - [employer] [address] [place] [address] PCP - General01/15/23Team MemberRelationshipSpecialtyStart DateEnd Date Pam Stinson, SALES REPRESENTATIVE [employer]ATS-[employer] [address] [place] [address] PCP - Generalmily Xsontcfi56/14/23Team MemberRelationshipSpecialtyStart Date End Date Pam Stinson SALES REPRESENTATIVE [employer]ATS-[employer] [address] [place] [address] PCP - Generalmily Ecdsghpu10/14/23Team MemberRelationshipSpecialtyStart Date End Date Pam Stinson SALES REPRESENTATIVE [employer]ATS-[employer] [address] [place] [address] PCP - GeneralFamily Medicine11/17/24Team MemberRelationshipSpecialtyStart DateEnd Date Pam Stinson, SALES REPRESENTATIVE MEATS-[employer] [address] [place] [address] PCP - GeneralFamily Medicine11/17/24Team MemberRelationshipSpecialtyStart DateEnd Date Pam Stinson SALES REPRESENTATIVE MEATS-[facility] [address] [place] [address] PCP - GeneralFamily Medicine11/17/24Team MemberRelationshipSpecialtyStart DateEnd Date Pam Stinson SALES REPRESENTATIVE MEATS-[facility] [address] [place] [address] PCP - Generalmily Mdfojgir46/14/23Team MemberRelationshipSpecialtyStart Date End Date Pam Stinson SALES REPRESENTATIVE MEATS-[facility] [address] [place] [address] PCP - Generalmily Bfxaazrc47/14/23Team MemberRelationshipSpecialtyStart Date End Date Pam Stinson SALES REPRESENTATIVE MEATS-[facility] [address] [place] [address] PCP - Generalmily Jeteyhej80/14/23Team MemberRelationshipSpecialtyStart Date End Date Pam Stinson SALES REPRESENTATIVE MEATS-[facility] [address] [place] [address] PCP - GeneralFamily Shuetgct66/14/23Team MemberRelationshipSpecialtyStart Date End Date Pam Stinson SALES REPRESENTATIVE MEATS-[facility] [address] [place] [address] PCP - Generalmily Rslafuys25/14/23Team MemberRelationshipSpecialtyStart Date End Date Pam Stinson SALES REPRESENTATIVE MEATS-[facility] [address] [place] [address] PCP - [facility] Glkjrziz04/14/23Team MemberRelationshipSpecialtyStart Date End Date Pam Stinson SALES REPRESENTATIVE MEATS-[facility] [address] [place] [address] PCP - [facility] Kumhpxiz07/14/23Team MemberRelationshipSpecialtyStart Date End Date Pam Stinson SALES REPRESENTATIVE MEATS-[facility] [address] [place] [address] PCP - [facility] Kfzqqgfg96/14/23Team MemberRelationshipSpecialtyStart Date End Date Pam Stinson SALES REPRESENTATIVE MEATS-[facility] [address] [place] [address] PCP - [facility] Ypwrfhcn07/14/23Team MemberRelationshipSpecialtyStart Date End Date Pam Stinson SALES REPRESENTATIVE MEATS-[facility] [facility] [address] [place] [address] [facility] - [facility] Jaxjloqw63/14/23Team MemberRelationshipSpecialtyStart Date End Date Pam Stinson SALES REPRESENTATIVE [facility] [address] [place] [address] PCP - GeneralFamily Ttmomaro20/14/23Team MemberRelationshipSpecialtyStart Date End Date Pam Stinson SALES REPRESENTATIVE [facility] [address] [place] [address] PCP - GeneralFamily Ghblndwb01/14/23Team MemberRelationshipSpecialtyStart Date End Date Pam Stinson, SALES REPRESENTATIVE [facility] [address] [place] [address] PCP - Generalmily Ncfleskc90/14/23Team MemberRelationshipSpecialtyStart Date End Date Pam Stinson SALES REPRESENTATIVE [facility] [address] [place] [address] PCP - GeneralFamily Cirfqhvv69/14/23Team MemberRelationshipSpecialtyStart Date End Date Pam Stinson SALES REPRESENTATIVE [facility] [address] [place] [address] PCP - Generalmily Aknwqznn37/14/23Team MemberRelationshipSpecialtyStart Date End Date Pam Stinson SALES REPRESENTATIVE [facility] [address] [place] [address] PCP - GeneralFamily Xcjtgeal43/14/23Team MemberRelationshipSpecialtyStart Date End Date Pam Stinson SALES REPRESENTATIVE [facility] [address] [place] [address] PCP - GeneralFamily Yenblmvs65/14/23Team MemberRelationshipSpecialtyStart Date End Date Pam Stinson SALES REPRESENTATIVE [facility] [address] [place] [address] PCP - Generalmi Medicine01/11/25Team MemberRelationshipSpecialtyStart DateEnd Date Pam Stinson SALES REPRESENTATIVE [facility] [address] [place] [address] PCP - [facility]01/11/25Team MemberRelationshipSpecialtyStart DateEnd Date Pam Stinson SALES REPRESENTATIVE [facility] [address] [place] [address] PCP - [facility] Medicine01/11/25Team MemberRelationshipSpecialtyStart DateEnd Date Pam Stinson SALES REPRESENTATIVE [facility] [address] [place] [address] PCP - [facility] Medicine01/11/25 Name Effective Dates (start - stop) Status Members No Information Team MemberRelationshipSpecialtyStart DateEnd Date Pam Stinson SALES REPRESENTATIVE [facility] [address] [place] [address] PCP - [facility]01/11/25Team MemberRelationshipSpecialtyStart DateEnd Date Pam Stinson SALES REPRESENTATIVE [facility] [address] [place] [address] PCP - GeneralFamily Medicine01/11/25Team MemberRelationshipSpecialtyStart DateEnd Date Pam Stinson, SALES REPRESENTATIVE [facility] [address] [place] [address] PCP - GeneralFamily Medicine01/11/25Team MemberRelationshipSpecialtyStart DateEnd Date Pam Stinson, SALES REPRESENTATIVE [facility] [address] [place] [address] PCP - Generalmily Medicine01/11/25Team MemberRelationshipSpecialtyStart DateEnd Date Pam Stinson, SALES REPRESENTATIVE [facility] [address] [place] [address] PCP - GeneralFamily Medicine01/11/25Team MemberRelationshipSpecialtyStart DateEnd Date Pam Stinson, SALES REPRESENTATIVE [facility] [address] [place] [address] PCP - GeneralFamily Medicine03/16/25Team MemberRelationshipSpecialtyStart DateEnd Date Pam Stinson, SALES REPRESENTATIVE [facility] [address] [place] [address] PCP - GeneralFamily Medicine03/16/25Team MemberRelationshipSpecialtyStart DateEnd Date Pam Stinson, SALES REPRESENTATIVE [facility] [address] [place] [address] PCP - GeneralFamily Medicine03/16/25Team MemberRelationshipSpecialtyStart DateEnd Date Pam Stinson, SALES REPRESENTATIVE [facility] [address] [place] [address] PCP - Generalmily Medicine03/16/25Team MemberRelationshipSpecialtyStart DateEnd Date Pam Stinson, SALES REPRESENTATIVE [facility] [address] [place] [address] PCP - Generalmily Medicine03/16/25Team MemberRelationshipSpecialtyStart DateEnd Date Pam Stinson, SALES REPRESENTATIVE [facility] [address] [place] [address] PCP - Generalmily Medicine03/16/25Team MemberRelationshipSpecialtyStart DateEnd Date Pam Stinson, SALES REPRESENTATIVE [facility] [address] [place] [address] PCP - Generalmily Medicine03/16/25Team MemberRelationshipSpecialtyStart DateEnd Date Pam Stinson, SALES REPRESENTATIVE [facility] [address] [place] [address] PCP - Generalmily Medicine03/16/25Team MemberRelationshipSpecialtyStart DateEnd Date Pam Stinson, SALES REPRESENTATIVE [facility] [address] 05/14/25 [place] [address] PCP - GeneralFamily Medicine05/14/25Team MemberRelationshipSpecialtyStart DateEnd Date Vj Gray, SALES REPRESENTATIVE [facility] [address] [place] [address] PCP - GeneralNurse Practitioner05/30/25Team MemberRelationshipSpecialtyStart Date End Date Unallocated, Noms ProviderMD [address] [place] [address] PCP - GeneralFamily Medicine06/06/25Team MemberRelationshipSpecialtyStart DateEnd Date Unallocated, Andrea Javed MD [address] [place], [place] [address] [address] PCP - GeneralFamily Medicine06/06/25Team MemberRelationshipSpecialtyStart DateEnd Date Unallocated, Nombeatrice ProviderMD [address] [place] [address], [place] [address] PCP - Generalmily Medicine06/06/25 Team Status: Inactive Member Role Status Dates Ra Maravilla , Attending Provider Active S tart: June 25, 2025 End: June 25, 2025Team MemberRelationshipSpecialtyStart DateEnd Date Vj Gray, SALES REPRESENTATIVE [facility] [address] [place] [address] PCP - GeneralNurse Practitioner05/30/25Team MemberRelationshipSpecialtyStart Date End Date Vj Gray, SALES REPRESENTATIVE [facility] [address] [place] [address] PCP - GeneralNurse Practitioner05/30/25Team MemberRelationshipSpecialtyStart Date End Date Vj Gray, SALES REPRESENTATIVE [facility] [address] [place] [address] PCP - GeneralNurse Practitioner05/30/25Te MemberRelationshipSpecialtyStart Date End Date Unallocated, Noms MD Tegan [facility] [place] [address] PCP - Generalmily Medicine06/06/25Team MemberRelationshipSpecialtyStart DateEnd Date Unallocated, Noms MD Tegan [address] [place] [address] PCP - [facility] Medicine06/06/25Team MemberRelationshipSpecialtyStart DateEnd Date Unallocated, Noms MD Tegan [address] [place] [address] PCP - [facility] Medicine06/06/25Team MemberRelationshipSpecialtyStart DateEnd Date Vj Gray, SALES REPRESENTATIVE [facility] [address] [place] [address] PCP - GeneralNurse Practitioner05/30/25Team MemberRelationshipSpecialtyStart Date End Date Vj Gray, SALES REPRESENTATIVE [facility] [address] [place] [address] PCP - GeneralNurse Practitioner05/30/25Team MemberRelationshipSpecialtyStart Date End Date Vj Gray, SALES REPRESENTATIVE [facility] [address] [place] [address] PCP - GeneralNurse Practitioner05/30/25Team MemberRelationshipSpecialtyStart Date End Date Vj Gray, SALES REPRESENTATIVE [facility] [address] [place] [address] PCP - GeneralNurse Practitioner7Team MemberRelationshipSpecialtyStart Date End Date Vj Gray, SALES REPRESENTATIVE [facility] [address] [place] [address] PCP - GeneralNurse Practitioner7Team MemberRelationshipSpecialtyStart Date End Date Vj Gray, SALES REPRESENTATIVE [facility] [address] [place] [address] PCP - GeneralNurse Practitioner7Team MemberRelationshipSpecialtyStart Date End Date Vj Gray, SALES REPRESENTATIVE [facility] [address] [place] [address] PCP - GeneralNurse Practitioner05/30/25Team MemberRelationshipSpecialtyStart Date End Date Vj Gray, SALES REPRESENTATIVE [facility] [address] [place] [address] PCP - GeneralNurse Practitioner7Team MemberRelationshipSpecialtyStart Date End Date Vj Gray, SALES REPRESENTATIVE [facility] [address] [place] [address] PCP - GeneralNurse Practitioner7Team MemberRelationshipSpecialtyStart Date End Date Vj Gray, SALES REPRESENTATIVE [facility] [address] [place] [address] PCP - GeneralNurse Practitioner05/30/25Te MemberRelationshipSpecialtyStart Date End Date Vj Gray SALES REPRESENTATIVE [facility] [address] [place] [address] [facility] - [facility] Practitioner7Te MemberRelationshipSpecialtyStart Date End Date LatoyainderVj Vicki, [facility] [address] [place] [address] [facility] - [facility] Practitioner05/30/25Te MemberRelationshipSpecialtyStart Date End Date ChrisVj quinones, [facility] [address] [place] [address] PCP - [facility] Practitioner05/30/25Team MemberRelationshipSpecialtyStart Date End Date LatoyainderVj Vicki, [facility] [address] [place] [address] [facility] - [facility] Practitioner05/30/25 Ordered Prescriptions (unrec ognized section and [...] pt back and for the from to [facility] as needed for addt'l testing throughout [...] (COMPLETED) 1,710 mL (30 mL/kg 57 kg Tennyson weight), intravenous, at 1,682 mL/hr, Administer over [...] GABBY) * 1612 (Restarted - Provider: Cristóbal Becerar, GABBY) * 1645 (Stop Bag - Provider: [...] BE BASED ON THE PRIMARY CLINICAL RECORDS. [facility]. provides no warranty or guarantee of the accuracy or completeness of information in this document.
[2025-09-10] MEDS: PANTOPRAZOLE SODIUM 40 MG VIAL IV (09:19)
[2025-09-10] MEDS: 0.9 % SODIUM CHLORIDE 1,000 ML 200 ML IV ×2 (09:19→15:41)
--- NOTE | 2025-09-10 10:47 | CT_ITS ---
The [address] [address] Patient Name: TERESA GOODWIN MRN: [id number] date: 1945 Sex: F Assigned Patient Location: [place] Current Patient Location: [place] Accession/Order Number: [id number] Exam Date: 09/10/2025 11:47 Report Date: 09/10/2025 17:40 At the request of: PATRICE MCGRAW MD Procedure: CT head/brain wo con CT BRAIN WITHOUT CONTRAST: CLINICAL HISTORY: Encephalopathy COMPARISON: 06/25/2025 TECHNIQUE: Contiguous axial unenhanced images were obtained through the brain. This CT exam was performed using one or more following dose reduction techniques: Automated exposure control, adjustment of the mA and/or kV according to patient size, or use of iterative reconstruction technique. FINDINGS: Right frontal approach shunt catheter tip terminating near the level of the foramina of [place]. Similar ventricular megaly with transverse measurement third ventricle measuring 1.4 cm, previously 1.3 cm. Stable hypoattenuation along the shunt catheter within the right frontal lobe Possibly related to gliosis. Otherwise [id number] chronic small vessel changes. Right caudate head lacunar type stroke. Cisterns are patent. Vascular calcifications. No calvarial fracture.. Mastoids are clear. CT/CT head/brain wo con IMPRESSION: NO ACUTE INTRACRANIAL ABNORMALITY. GROSSLY SIMILAR SHUNTED VENTRICULOMEGALY, MINIMALLY PROGRESSED HOWEVER THIS MAY BE RELATED TO DIFFERENCES IN SCANNING TECHNIQUE OR SHUNT SETTINGS. CLINICAL CORRELATION RECOMMENDED. STABLE CHRONIC SMALL VESSEL CHANGES Impression dictated by: Derek Perla M.D. 09/10/2025 5:40 PM Dictation Location: [place] [address] Electronically authenticated by: [id number] Y Date: 09/10/2025 17:40
--- NOTE | 2025-09-10 10:54 | PM.HP ---
HPI H&P: HPI History of Present Illness Chief complaint: RAIN, ABDOMINAL MASS Narrative: Mrs. Dee is a 80-year-old female who was sent to the emergency room for evaluation of change in mental status. Patient also reportedly had vomited up brown stuff. Patient was found to have RAIN with severe hypercalcemia. Calcium level was 14. BUN was 50 and creatinine 4.25. Baseline creatinine is 1.6. Gastric content tested negative for blood. No fever or chills. Patient is known to have metastatic breast cancer. Opioid HPI Opioid Management Most Recent Pain and Opioid Data: Last Pain Scale 5 Today, 10:00 Last Pain Intensity 2 04/07/24, 10:58 Last Pain Assessment Today, 10:00 Last ORT Total Score 0 Today, 09:01 Last ORT Risk Category Low Risk Today, 09:01 Review of Systems ROS Narrative Patient is very weak. Significant loss of insight. Confused and disoriented. Able to lift upper arms against gravity. Unable to lift upper legs. PFSH [facility] Medical History (Updated 07/01/25 @ 00:00 by ) Stage 4 chronic kidney disease ?N18.4 - Chronic kidney disease, stage 4 (severe) (ICD-10) UTI (urinary tract infection) ?N39.0 - Urinary tract infection, site not specified (ICD-10) Acute UTI ?N39.0 - Urinary tract infection, site not specified (ICD-10) H/O malignant neoplasm of female breast ?Z85.3 - Personal history of malignant neoplasm of breast (ICD-10) Aortic stenosis ?I35.0 - Nonrheumatic aortic (valve) stenosis (ICD-10) Arthritis ?M19.90 - Unspecified osteoarthritis, unspecified site (ICD-10) Asthma ?J45.909 - Unspecified asthma, uncomplicated (ICD-10) Encephalitis ?G04.90 - Encephalitis and encephalomyelitis, unspecified (ICD-10) Metastasis to bone ?C79.51 - Secondary malignant neoplasm of bone (ICD-10) Peptic ulcer disease ?K27.9 - Peptic ulcer, site unspecified, unspecified as acute or chronic, without hemorrhage or perforation (ICD-10) TIA (transient ischemic attack) ?G45.9 - Transient cerebral ischemic attack, unspecified (ICD-10) CHELSEA (obstructive sleep apnea) ?G47.33 - Obstructive sleep apnea (adult) (pediatric) (ICD-10) PVD (peripheral vascular disease) ?I73.9 - Peripheral vascular disease, unspecified (ICD-10) Lumbar spondylosis ?M47.816 - Spondylosis without myelopathy or radiculopathy, lumbar region (ICD-10) Incontinence ?R32 - Unspecified urinary incontinence (ICD-10) CKD (chronic kidney disease) stage 3, GFR 30-59 ml/min ?N18.30 - Chronic kidney disease, stage 3 unspecified (ICD-10) Breast CA ?C50.919 - Malignant neoplasm of unspecified site of unspecified female breast (ICD-10) CAD (coronary artery disease) ?I25.10 - Atherosclerotic heart disease of rincon coronary artery without angina pectoris (ICD-10) Depression ?F32.A - Depression, unspecified (ICD-10) GERD (gastroesophageal reflux disease) ?K21.9 - Gastro-esophageal reflux disease without esophagitis (ICD-10) Hypertension ?I10 - Essential (primary) hypertension (ICD-10) Diabetes ?E11.9 - Type 2 diabetes mellitus without complications (ICD-10) Surgical History S/P RUBBER TUBING BACKER shunt ?Z98.2 - Presence of cerebrospinal fluid drainage device (ICD-10) H/O heart artery stent ?Z95.5 - Presence of coronary angioplasty implant and graft (ICD-10) History of ventriculoperitoneal shunting ?Z92.89 - Personal history of other medical treatment (ICD-10) History of mastectomy ?Z90.10 - Acquired absence of unspecified breast and nipple (ICD-10) H/O lumpectomy ?Z98.890 - Other specified postprocedural states (ICD-10) S/P balloon mitral valvuloplasty ?Z98.890 - Other specified postprocedural states (ICD-10) S/P mitral valve replacement with bioprosthetic valve ?Z95.3 - Presence of xenogenic heart valve (ICD-10) Family History Other Family history of CHF (congestive heart failure) Family history of diabetes mellitus Family history of myocardial infarction Social History Within the past year, how often did you have a drink containing alcohol: never Score interpretation: A score less than 3 is consistent with normal alcohol consumption. 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 Known occupational exposures/hazards: No Highest level of school completed/degree received: don't know Do you want help with school or training: No Are you now , , , , never or living with a partner: never In a typical week, how many times do you talk on the telephone with family, friends, or neighbors: 3 or more times per week How often do you get together with friends or relatives: never How often do you attend anabaptist or oriental orthodox services: 4 or more times per year Do you belong to any clubs or organizations such as anabaptist groups unions, [employer] or athletic groups, or school groups: no Total score: 2 Score interpretation: A score of greater than or equal to 2 indicates the lowest level of social isolation. Little interest or pleasure in doing things: not at all Feeling down, depressed, or hopeless: not at all Feel stressed/tense/nervous/anxious/difficulty sleeping: not at all Due to disability, difficulty making decisions: No Do you think of yourself as: straight/heterosexual Gender Identity: female Meds Home Medications and Allergies Home Medications ?Medication ?Instructions ?Recorded ?Confirmed ?Type pantoprazole 40 mg tablet,delayed 40 mg PO QDAY 09/30/23 09/10/25 History release sertraline 100 mg tablet 100 mg PO QAM 09/30/23 09/10/25 History insulin lispro 100 unit/mL 1 sliding scale dose subcut QID 04/06/24 09/10/25 History subcutaneous pen blood-glucose sensor (Dexcom G7 06/25/25 06/25/25 History Sensor device) furosemide 20 mg tablet 20 mg PO .QD 06/25/25 09/10/25 History mirtazapine 7.5 mg tablet 7.5 mg PO DAILY 06/25/25 09/10/25 History trazodone 100 mg tablet 100 mg PO .QHS 06/25/25 09/10/25 History acetaminophen 500 mg tablet 1,000 mg PO Q6H PRN pain 09/10/25 09/10/25 History (Acetaminophen Extra Strength) alendronate 70 mg tablet (Fosamax) 70 mg PO QWEEK 09/10/25 09/10/25 History buspirone 5 mg tablet 5 mg PO TID 09/10/25 09/10/25 History calcium citrate 500 mg PO TID 09/10/25 09/10/25 History cholecalciferol (vitamin D3) 50 2,000 unit PO QDAY 09/10/25 09/10/25 History mcg (2,000 unit) tablet cyanocobalamin (vitamin B-12) 1,000 mcg PO DAILY 09/10/25 09/10/25 History 1,000 mcg capsule ergocalciferol (vitamin D2) 25,000 50,000 unit PO DAILY 09/10/25 09/10/25 History unit capsule ferrous sulfate 325 mg (65 mg 325 mg PO DAILY 09/10/25 09/10/25 History iron) tablet (Feosol) hydroxyzine HCl 10 mg tablet 10 mg PO TID 09/10/25 09/10/25 History insulin glargine 100 unit/mL (3 10 unit subcut DAILY 09/10/25 09/10/25 History mL) subcutaneous pen letrozole 2.5 mg tablet (Femara) 2.5 mg PO DAILY 09/10/25 09/10/25 History loratadine 10 mg tablet 10 mg PO DAILY 09/10/25 09/10/25 History magnesium oxide 400 mg PO DAILY 09/10/25 09/10/25 History Allergies Allergy/AdvReac Type Severity Reaction Status Date / Time No Known Drug Allergies Allergy Verified 06/25/25 12:51 Exam Narrative Exam Narrative: Patient is lying in bed. Very cachectic and frail. Dry skin and buccal mucosa. Neck is supple. Chest is clear, heart is regular. Abdomen soft, diffusely tender. Lower extremities trace pitting edema. Hyperpigmentation. Patient is confused, disoriented. Significant loss of insight. Able to answer yes and no questions without accuracy. Able to lift up her arms against gravity. Unable to lift up her legs Constitutional Vital Signs, click to edit/add: Last Vital Signs Temp 98.1 F 09/10/25 09:10 Pulse 95 H 09/10/25 10:00 Resp 18 09/10/25 09:10 BP 134/77 09/10/25 09:10 Pulse Ox 93 L 09/10/25 09:10 O2 Del Method Room Air 09/10/25 09:10 Results Labs Labs: Short CBC 09/10/25 Range/Units 03:25 WBC 10.3 (4.0-11.0) 10^3/uL Hgb 10.6 L (12.0-16.0) g/dL Hct 33.4 L (36.0-48.0) % Plt Count 337 (150-450) 10^3/uL BMP 09/10/25 03:25 Sodium 135 L Potassium 3.4 L Chloride 88 L Carbon Dioxide 33.3 H BUN 50.0 H Creatinine 4.25 H Glucose 251 H Calcium 14.0 H* Liver Function 09/10/25 Range/Units 03:25 Total Bilirubin 0.5 (0.2-1.0) mg/dL AST 30 (15-37) U/L ALT 19 (14-59) U/L Alkaline Phosphatase 171 H (46-116) U/L Albumin 3.3 L (3.4-5.0) g/dL Assessment and Plan Assessment and Plan (1) Hypercalcemia: (2) Acute kidney injury: Plan RAIN which is likely secondary to hypercalcemia, volume depletion as well. Severe hypercalcemia. Known history of metastatic breast cancer. Imaging showed diffuse bone metastasis Confusion, disorientation. Acute metabolic encephalopathy. Unable to stand up and ambulate. I had excepted to admit patient to the medical floor. Discontinue calcium and vitamin D. Requested PTH and PTH related hormone. I started patient on IV fluid infusion. I started the patient on calcitonin. Monitor kidney function. Check phosphorus level. Avoid nephrotoxic drugs. Avoid ENVIRONMENTAL HEALTH AND SAFETY LEADER toxic drug. Patient is on trazodone and mirtazapine No indication for hemodialysis. No hyperkalemia. No fluid overload and no metabolic acidosis. CAT scan of the head rule out acute intracranial process but likely her encephalopathy is metabolic in nature. Hematemesis but the gastric content tested negative for blood. Hold off anticoagulation for 24 hours ensure stability of her hemoglobin. History of metastatic breast cancer. CAT scan showed extensive lytic lesion throughout the skeleton Adnexal mass also is seen. Last admission I requested K and L chain which came back elevated but the ratio is normal. Not sure if patient followed up with her oncologist since last discharge Elevated troponin, flat elevation. EKG does not show any ST elevation or depression Patient is not having chest pain however she is encephalopathic. No clinical evidence at this time to suggest ACS however I suspect that the patient has underlying CAD. Start patient on small dose beta-willi and aspirin Avoid aggressive intervention at this time. Diabetes Accu-Chek with a sliding scale coverage. Chronic, subacute medical conditions not listed above, abnormal labs and imaging. These would need to be addressed. Could be addressed later on or in the outpatient setting by PCP collaboration with other needed outpatient providers when time and condition are appropriate. Overall patient has poor prognosis given her advanced age, significant functional and cognitive loss, significant extensive skeletal metastasis, acute metabolic derangement and declining nutritional state. Alcohol daughter will discuss goals of care. I would recommend comfort care and hospice.
--- NOTE | 2025-09-10 10:58 | SWNOTE1 ---
HUBERT reached out to Kristy at [facility] in regards to pt's status at [facility]. She was dc from therapy on 08/23. 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 Per [facility], she won't ambulate or use walker, she is a rebel. Per Kristy at [facility] she is also schedule for a PET scan on 09/14. HUBERT informed therapy and the nurse of this information.
--- NOTE | 2025-09-10 11:09 | W.ACP ---
Advance Care Planning Advance Care Planning Discussion Advance care planning discussion participants: patient surrogate decision maker Advance care planning discussion summary: Patient is unable to engage in any goals of care discussion. I called her daughter Ileana who is listed as a sheet music salesperson Ileana stated that she is POA for help as well. She will give me permission to proceed with conversation lasted for about 20 minutes. I gave her update on Tiffany's condition, status and treatment plan. I informed her about kidney failure, severe hypercalcemia and extensive bony lytic lesions in layman's terms. We discussed her CODE STATUS. I explained in simple terms of the difference between full code, CCA and CC. I explained in basic terms the process of CPR including chest compressions, shocks, intubation life support. At this time, Ileana stated that she wants her mom to be full code. She would like to discuss oncological care with her primary oncologist in the [place] At this time I will keep patient is full code honoring her daughter's wishes.
[2025-09-10] MEDS: HEPARIN SODIUM (PORCINE) 5,000 UNIT/ML VIAL 5000 UNIT SUBQ ×2 (12:25→21:39)
[2025-09-10] MEDS: INSULIN ASPART 300 UNIT/3 ML PEN SUBQ ×2 (12:25→17:05)
[2025-09-10 12:46] LABS: Glucose Urine UA 100 mg/dL (NEGATIVE)
[2025-09-10 12:52] LABS: Crystals Seen? None Seen #/HPF (None Seen)
[2025-09-10 12:54] LABS: Cast Seen? NONE SEEN #/LPF (NONE SEEN); Urine Culture Indicated YES-FRMC
[2025-09-10] MEDS: LEVOFLOXACIN 750 MG TABLET PO (14:17)
--- NOTE | 2025-09-10 15:02 | SWNOTE1 ---
SW sent updates to [facility], updates included face sheet, physician notes, PT/OT, nursing notes, diagnostic imaging, labs, and vitals.
[2025-09-10 15:09] LABS: Hematocrit 28.3 % (36.0-48.0); Hemoglobin 9.1 g/dL (12.0-16.0)
[2025-09-10 15:14] LABS: Anion Gap 14.4; Blood Urea Nitrogen 53.0 mg/dL (7.0-18.0); Calcium 12.3 mg/dL (8.5-10.1); Carbon Dioxide 32.7 mmol/L (21.0-32.0); Chloride 97 mmol/L (98-107); Estimated GFR (African America 12 (>=60 mL/min/1.73m^2); Estimated GFR (Non-African Ame 10 (>=60 mL/min/1.73m^2); Glucose 277 mg/dL (74-106); Potassium 3.1 mmol/L (3.5-5.1); Sodium 141 mmol/L (136-145)
--- NOTE | 2025-09-10 15:54 | SWNOTE1 ---
Important Message from Medicare reviewed and discussed with patient's daughter, Ileana Dee. Pt's daughter verbalized understanding and SW signed the form that it was reviewed. Original given to patient and copy placed in patient?s chart.
--- NOTE | 2025-09-10 15:55 | SWNOTE1 ---
HUBERT met with pt to discuss dc needs. Pt was laying in bed and was awake. Pt was pulling at the tape by her IV. SW advised to not pick at the tape as it may hurt and cause the IV to come out. Pt stated she was not picking. She stated they could not draw blood and had to poke her several times. SW asked pt if she knew where she was? She stated [facility]. SW asked the year and pt knew it was 2024. HUBERT asked the month and she stated September, SW let her know it was almost September. SW asked how she was doing at [facility]. Pt unsure, but again let SW know they tried to draw blood, but could not. HUBERT asked permission to call her daughter, pt in agreement and stated her daughters name is Ileana. HUBERT did review IMM form with pt, but will review with daughter as well. HUBERT let nurse know that pt was picking at tape by IV site. HUBERT called daughter, Ileana. Daughter did let SW know that pt was supposed to getting therapy under Medicaid, but [facility] is not doing it. She ran out of her days with [facility] or her insurance cut her. She stated [facility] told her she can't get therapy under Medicare until November. SW to find out if they are skilled her under her Medicaid. Pt's daughter stated she is looking in to get pt a rebel lift for at home and potentially going to bring her home. She has a wheelchair and hospital bed. Pt has a case management director from [facility], Yessica, and Yessica told her that a rebel lift would be covered under Medicare. Daughter feels like bringing pt home would help with pt's mental well-being. Ileana plans on talking to HUBERT at [facility] tomorrow to get things started, such as equipment needs for at home. HUBERT offered to assist in any way. Ileana will let SW know. At this time plan is to return to [facility] at discharge and daughter will work with [facility] on getting patient back home.
--- NOTE | 2025-09-10 16:09 | SWNOTE1 ---
Pt's daughter called SW back. She spoke with SW at [facility], and they recommended getting hospice involved to assist with equipment and care in the home. Daughter stated her and her mother spoke about this in past and they would like [facility]. Daughter also mentioned hospice only being temporary until she can do therapy again in November? SW did let daughter know that hospice may make her change code status as well. SW recommended meeting with hospice to discuss plan of care and goals for patient. Daughter in agreement. HUBERT advised that SW will send referral and call [facility] and recommended setting up time to meet with hospice tomorrow. Daughter in agreement. HUBERT reached out to Dr. Wills and updated him. SW sent referral to [facility]. Referral sent to [facility]. Referral included face sheet, ED note, H&P, provider notes, case management report, wound consult, nursing notes, diagnostic imaging, med list, PT/OT note, and hospice order.
--- NOTE | 2025-09-10 16:25 | CM.NOTE ---
Order placed for referral to Hospice per daughter's request
[2025-09-10] MEDS: POTASSIUM CHLORIDE 10 MEQ ER TABLET 20 MEQ PO (18:40)
[2025-09-10] MEDS: 0.9 % SODIUM CHLORIDE 1,000 ML 125 ML IV (20:55)
[2025-09-11] VITALS (10 sets, daily range): BP systolic 101–135; BP diastolic 46–62; PULSE 70–83; TEMP 37.2–37.3; O2SAT 87–95
[2025-09-11] MEDS: 0.9 % SODIUM CHLORIDE 1,000 ML 125 ML IV (04:54)
[2025-09-11] MEDS: HEPARIN SODIUM (PORCINE) 5,000 UNIT/ML VIAL 5000 UNIT SUBQ ×2 (05:30→12:56)
[2025-09-11 05:41] LABS: Hemoglobin 7.3 g/dL (12.0-16.0); Immature Granulocytes Abs Auto 0.10 10^3/uL (0.00-0.03); Immature Granulocytes Pct Auto 1.2 % (0.0-0.5); Lymphocytes Absolute Auto 2.2 10^3/uL (1.2-3.8); Mean Corpuscular HGB Conc 31.1 g/dL (29.9-35.2); Mean Corpuscular Hemoglobin 28.1 pg (26.7-34.0); Mean Corpuscular Volume 90.4 fL (81.0-99.0); Platelet Count 236 10^3/uL (150-450); Red Blood Count 2.60 10^6/uL (4.20-5.40); White Blood Count 8.4 10^3/uL (4.0-11.0)
[2025-09-11 05:53] LABS: Anion Gap 10.6; Blood Urea Nitrogen 48.0 mg/dL (7.0-18.0); Calcium 11.3 mg/dL (8.5-10.1); Carbon Dioxide 30.5 mmol/L (21.0-32.0); Chloride 103 mmol/L (98-107); Estimated GFR (African America 14 (>=60 mL/min/1.73m^2); Estimated GFR (Non-African Ame 12 (>=60 mL/min/1.73m^2); Glucose 121 mg/dL (74-106); Potassium 3.1 mmol/L (3.5-5.1); Sodium 141 mmol/L (136-145)
[2025-09-11 06:32] LABS: Hematocrit 23.5 % (36.0-48.0)
--- NOTE | 2025-09-11 09:14 | SWNOTE1 ---
HUBERT called [facility] and spoke to Lauren. She stated she spoke with the daughter yesterday and set up meeting for 10:00-10:30. HUBERT let nurse and case management know.
[2025-09-11] MEDS: CALCITONIN,SALMON,SYNTHETIC 30 SPRAY/3.7 ML BOTTLE NS (09:26)
[2025-09-11] MEDS: PANTOPRAZOLE SODIUM 40 MG VIAL IV (09:27)
[2025-09-11] MEDS: POTASSIUM CHLORIDE 10 MEQ ER TABLET 40 MEQ PO (09:27)
--- NOTE | 2025-09-11 09:30 | CM.NOTE ---
Rounds made with Dr. Carlos, pt and family will meed with Hospice today between 10-10:30 for discharge planning.
[2025-09-11 09:32] LABS: A. calcoaceticus-baumannii Cpx NOT DETECTED (NOT DETECTE); Bacteroides fragilis NOT DETECTED (NOT DETECTE); Candida auris NOT DETECTED (NOT DETECTE); Candida glabrata NOT DETECTED (NOT DETECTE); Enterobacterales NOT DETECTED (NOT DETECTE); Enterococcus faecalis NOT DETECTED (NOT DETECTE); Enterococcus faecium NOT DETECTED (NOT DETECTE); Klebsiella aerogenes NOT DETECTED (NOT DETECTE); Klebsiella pneumoniae group NOT DETECTED (NOT DETECTE); Proteus spp. NOT DETECTED (NOT DETECTE); Salmonella spp. NOT DETECTED (NOT DETECTE); Serratia marcescens NOT DETECTED (NOT DETECTE); Source BLOOD; Staphylococcus epidermidis NOT DETECTED (NOT DETECTE); Staphylococcus lugdunensis NOT DETECTED (NOT DETECTE); Stenotrophomonas maltophilia NOT DETECTED (NOT DETECTE); Streptococcus pyogenes NOT DETECTED (NOT DETECTE); Streptococcus spp. NOT DETECTED (NOT DETECTE)
--- NOTE | 2025-09-11 10:26 | SWNOTE1 ---
HUBERT sent email to Kristy at [facility] notifying her that pt and daughter meeting with hospice today. Kristy did email back stating : Antelmo said this was indeed a conversation before and the daughter is handicapped and could not indeed take care of her 07/06 and it was not a deemed a safe discharge for her to return home is why she transitioned from skilled to LT here. We have tried talking with the daughter about hospice coming here to facility and Antelmo did not think she understood.??
--- NOTE | 2025-09-11 10:27 | PM.PN ---
Progress Note: Subjective Subjective Interval history: Patient is more awake than yesterday. She is feeling better. She denies any chest or abdominal pain. Exam Narrative Exam Narrative: Patient is lying in bed. Very cachectic and frail. Dry skin and buccal mucosa. Less prominent than yesterday. Patient is definitely more awake and coherent than yesterday. Able to answer more questions with accuracy. Able to follow simple commands such as lifting upper arms and legs. She can barely move her legs sideway which I think is a chronic. Neck is supple. Chest is clear, heart is regular. Abdomen soft, diffusely tender. Lower extremities trace pitting edema. Hyperpigmentation. Constitutional Vital Signs, click to edit/add: Last Vital Signs Temp 98.9 F 09/11/25 08:00 Pulse 76 09/11/25 09:50 Resp 18 09/11/25 04:00 BP 135/61 09/11/25 08:00 Pulse Ox 95 09/11/25 09:35 O2 Del Method Nasal Cannula 09/11/25 09:35 O2 Flow Rate 2 09/11/25 09:35 Progress Note: Objective Labs Labs: Short CBC 09/10/25 09/11/25 Range/Units 14:54 05:26 WBC 8.4 (4.0-11.0) 10^3/uL Hgb 9.1 L 7.3 L (12.0-16.0) g/dL Hct 28.3 L 23.5 L* (36.0-48.0) % Plt Count 236 (150-450) 10^3/uL BMP 09/10/25 09/11/25 14:54 05:26 Sodium 141 141 Potassium 3.1 L 3.1 L Chloride 97 L 103 Carbon Dioxide 32.7 H 30.5 BUN 53.0 H 48.0 H Creatinine 4.26 H 3.69 H Glucose 277 H 121 H Calcium 12.3 H 11.3 H Urine 09/10/25 Range/Units 12:30 Urine Color Yellow (YELLOW) Urine Clarity Cloudy A (CLEAR) Urine pH >=9.0 A (5.0-9.0) Ur Specific [place] 1.010 (1.005-1.025) Urine Protein 100 A (NEG/TRACE) mg/dL Urine Glucose (UA) 100 A (NEGATIVE) mg/dL Progress Note: A&P Assessment and Plan (1) Hypercalcemia: (2) Acute kidney injury: Plan RAIN which is likely secondary to hypercalcemia, volume depletion as well. Severe hypercalcemia. Known history of metastatic breast cancer. Imaging showed diffuse bone metastasis Confusion, disorientation. Acute metabolic encephalopathy. Unable to stand up and ambulate. I had excepted to admit patient to the medical floor. Discontinue calcium and vitamin D. Requested PTH and PTH related hormone. I started patient on IV fluid infusion. I started the patient on calcitonin. Monitor kidney function. Check phosphorus level. Avoid nephrotoxic drugs. Avoid TERRESTRIAL ECOLOGIST toxic drug. Patient is on trazodone and mirtazapine No indication for hemodialysis. No hyperkalemia. No fluid overload and no metabolic acidosis. CAT scan of the head rule out acute intracranial process but likely her encephalopathy is metabolic in nature. 09/11: Much improved over the last 24 hours. Encephalopathy improved. Patient is much more awake and coherent RAIN is improving. Hypercalcemia is improving. PTH is normal highly suspicious of hypercalcemia of malignancy. Continue IV fluid infusion Continue calcitonin. Consider initiation of Lasix once her volume is completely repleted. Hematemesis but the gastric content tested negative for blood. Hold off anticoagulation for 48 hours ensure stability of her hemoglobin. Anemia, hemoglobin drop over the last 24 hours Drop of her hemoglobin is likely caused by aggressive IV fluid infusion over the last 24 hours Recent iron studies consistent with anemia of chronic disease, likely secondary to metastatic cancer. Patient may need blood transfusion Repeat H&H at 1400 Continue PPI for gastric bleed prevention. Gastric and stool occult blood are negative. History of metastatic breast cancer. CAT scan showed extensive lytic lesion throughout the skeleton Adnexal mass also is seen. Last admission I requested K and L chain which came back elevated but the ratio is normal. Not sure if patient followed up with her oncologist since last discharge I was able to get a copy of PET scan that the patient had on PET scan is showing widespread osseous metastasis throughout the axial and proximal appendicular skeleton. Hypermetabolic left axillary nodes. Goals of care discussion with her daughter. Her daughter wants to meet with hospice team to see what they have to offer. Overall patient has poor prognosis given her advanced age in the setting of metastatic disease, declining cognitive and functional status. UTI Urine and blood cultures pending Based on previous urine culture report I started patient on Levaquin. Dose adjusted for renal. Elevated troponin, flat elevation. EKG does not show any ST elevation or depression Patient is not having chest pain however she is encephalopathic. No clinical evidence at this time to suggest ACS however I suspect that the patient has underlying CAD. Start patient on small dose beta-willi and aspirin Avoid aggressive intervention at this time. Diabetes Accu-Chek with a sliding scale coverage. Chronic, subacute medical conditions not listed above, abnormal labs and imaging. These would need to be addressed. Could be addressed later on or in the outpatient setting by PCP collaboration with other needed outpatient providers when time and condition are appropriate. Urinary Catheter Management Urinary Catheter Management Urethral: Cath placed during this visit: yes Urethral indwelling: No Insertion date: 09/10/25 Insertion time: 11:44
[2025-09-11 11:05] LABS: mecA/C and MREJ (MRSA) DETECTED (NOT DETECTE)
[2025-09-11 11:06] LABS: Staphylococcus spp. DETECTED (NOT DETECTE)
--- NOTE | 2025-09-11 11:22 | PC.NURSE ---
Dr. Wills notified of positive blood culture
--- NOTE | 2025-09-11 12:07 | SWNOTE1 ---
HUBERT stopped in the room and Gabi the hospice nurse is conversing with pt's daughter, Ileana. HUBERT asked how everything was going. Gabi voiced they have signed her on and she is now a DNRCC. Nurse and daughter di ask if pt was discharged today, HUBERT to find out. HUBERT confirmed with Gabi that they are getting rebel lift for at home. Gabi voiced they are and pt has hospital bed and wheelchair at home. Pt will also need home oxygen, which Gabi will order. Gabi will also order comfort meds as well. Hospice is aware of follow up with Oncologist on Wednesday and going to see if they can do a tele health visit. HUBERT to find out about discharge and will update hospice and daughter. Hospice also requested betts to stay in. HUBERT updated case management. Case management reached out to physician, and the plan is to keep her another night. HUBERT called and updated Lauren at [facility]. HUBERT received a call back from Lauren and she asked why physician is not discharging today? Physician would like to make sure all equipment is in place before discharge. Lauren is with nurse Gabi and Gabi is ordering everything now. Also pt is not GIP appropriate and since they did sign her on today, they would have to sign her off and re-admit tomorrow. Case management speaking with phsyician. HUBERT to call Lauren back.
--- NOTE | 2025-09-11 12:10 | CM.NOTE ---
Spoke with Dr. Wills about discharge, Hospice signed pt on. Pt will discharge to home with Hospice. Dr. Wills will complete discharge, SW will update Hospice for discharge.
--- NOTE | 2025-09-11 12:28 | PM.DS1 ---
DS: Providers Provider Date of admission: 09/10/25 08:37 Primary care physician: PAM STINSON Consults: 09/10/25 Consult to Hospice Routine Reason for consultation: Plan of care discussion Has provider been notified: Yes 09/10/25 07:00 Occupational Therapy Eval and Treat Routine Reason for consultation: Weakness Physical Therapy Eval and Treat Routine Reason for consultation: Weakness DS: Diagnosis Discharge Diagnosis (1) Hypercalcemia: (2) Acute kidney injury: Plan As listed above, below and others that are not listed DS: Summary Hospital Course Hospital Course: Mrs. Dee is a 80-year-old female who came in with change in mental status. She was found to have the following: RAIN which is likely secondary to hypercalcemia, volume depletion as well. Severe hypercalcemia. Known history of metastatic breast cancer. Imaging showed diffuse bone metastasis Confusion, disorientation. Acute metabolic encephalopathy. Unable to stand up and ambulate. Much improved over the last 24 hours. RAIN, hypercalcemia, dehydration and volume as had improved. Family met with the hospice team and requested to change CODE STATUS to DNR CC and discharge home with hospice care. Hematemesis but the gastric content tested negative for blood. Hold off anticoagulation for 48 hours ensure stability of her hemoglobin. Anemia, hemoglobin drop over the last 24 hours Drop of her hemoglobin is likely caused by aggressive IV fluid infusion over the last 24 hours Recent iron studies consistent with anemia of chronic disease, likely secondary to metastatic cancer. DNRCC and hospice care requested by family. History of metastatic breast cancer. CAT scan showed extensive lytic lesion throughout the skeleton Adnexal mass also is seen. Last admission I requested K and L chain which came back elevated but the ratio is normal. Not sure if patient followed up with her oncologist since last discharge I was able to get a copy of PET scan that the patient had on PET scan is showing widespread osseous metastasis throughout the axial and proximal appendicular skeleton. Hypermetabolic left axillary nodes. Goals of care discussion with her daughter. Her daughter wants to meet with hospice team to see what they have to offer. Overall patient has poor prognosis given her advanced age in the setting of metastatic disease, declining cognitive and functional status. Patient and her daughter met with the hospice team and the decision was made to change CODE STATUS to DNR CCA, enrollment into hospice program, discharged home today under hospice care. Patient has wheelchair and hospital bed at home. Hospice will order Beka lift. UTI Urine and blood cultures pending Based on previous urine culture report I started patient on Levaquin. Dose adjusted for renal. Family requested DNR CC and hospice enrollment. Patient will be discharged home on Levaquin to 50 mg daily. MRSA bacteremia Unknown source. Family requested comfort care and enrollment into the hospice program. Patient will be given 1 dose of vancomycin intravenously. She will be discharged home on oral linezolid 300 mg twice a day. Elevated troponin, flat elevation. EKG does not show any ST elevation or depression Patient is not having chest pain however she is encephalopathic. No clinical evidence at this time to suggest ACS however I suspect that the patient has underlying CAD. Start patient on small dose beta-willi and aspirin Avoid aggressive intervention at this time. Diabetes Accu-Chek with a sliding scale coverage. Chronic, subacute medical conditions not listed above, abnormal labs and imaging. Goals of care discussion took place. Given her advanced age, widespread skeletal metastasis, history of breast cancer, Significant metabolic derangement, hypercalcemia, RAIN, bacteremia, urinary tract infection in the setting of functional and cognitive disability. Family and patient opted to focus on comfort and enroll her into hospice program. Daughter does not want her to receive any additional acute or aggressive medical care. Daughter requested care that is intended for comfort and comfort care only. No further blood testing is requested. No additional imaging or follow-up with oncology team. Time Spent with Patient Time attestation: Total time spent providing and/or coordinating discharge services: Time spent: greater than 30 minutes Exam Constitutional Vital Signs, click to edit/add: Last Vital Signs Temp 99.2 F 09/11/25 12:00 Pulse 78 09/11/25 12:00 Resp 18 09/11/25 04:00 BP 124/62 09/11/25 12:00 Pulse Ox 90 L 09/11/25 12:00 O2 Del Method Room Air 09/11/25 12:00 O2 Flow Rate 2 09/11/25 09:35 DS: Data Data Completed and Pending Labs on day of discharge: Labs from last 24 hours 09/11/25 09/11/25 09/10/25 11:52 05:26 21:18 WBC 8.4 RBC 2.60 L Hgb 7.3 L Hct 23.5 L* MCV 90.4 MCH 28.1 MCHC 31.1 RDW 16.6 H Plt Count 236 MPV 9.5 Neut % (Auto) 59.6 Lymph % (Auto) 26.3 [place] % (Auto) 12.0 Eos % (Auto) 0.5 L Baso % (Auto) 0.4 Neut # (Auto) 5.0 Lymph # (Auto) 2.2 [place] # (Auto) 1.0 H Eos # (Auto) 0.0 Baso # (Auto) 0.0 Abs Immat Gran (auto) 0.10 H Imm/Tot Granulo (auto) 1.2 H Sodium 141 Potassium 3.1 L Chloride 103 Carbon Dioxide 30.5 Anion Gap 10.6 BUN 48.0 H Creatinine 3.69 H Est GFR ( Amer) 14 L Est GFR (Non-Af Amer) 12 L BUN/Creatinine Ratio 13.0 Glucose 121 H Calcium 11.3 H Phosphorus PTH Intact Urine Color Urine Clarity Urine pH Ur Specific [place] Urine Protein Urine Glucose (UA) Urine Ketones Urine Occult Blood Urine Nitrite Urine Bilirubin Urine Urobilinogen Ur Leukocyte Esterase Urine RBC Urine WBC Ur Squamous Epith Cells Urine Crystals Triple Phos Crystals Urine Bacteria Urine Casts Urine Mucus Ur Culture Indicated? Specimen Source A.calcoaceticus-baumannii cmplx PCR Bacteroides fragilis Fabby albicans (PCR) Fabby auris (PCR) C. glabrata (PCR) C. krusei (PCR) C. parapsilosis (PCR) C. tropicalis (PCR) C. neoform/gattii (PCR) Enterobacterales (PCR) E. cloacae complex PCR Enterococc faecalis PCR Enterococc faecium PCR E. coli (PCR) H. influenzae (PCR) Klebsiella aerogenes (PCR) Klebsiella oxytoca PCR K. pneumoniae group (PCR) List. monocytogenes PCR N. meningitidis (PCR) Proteus spp. (copies/mL) Salmonella spp. (PCR) Serratia marcescens PCR Staphylococcus sp PCR Staph aureus (PCR) mecA/C & MREJ Resist Gene mecA/C-Methicil Resis Gene mcr-1 Colistin Res Gene PCR Staph epidermidis (PCR) Staph lugdunensis (TEM-PCR) S. maltophilia (PCR) Streptococcus sp PCR Strep agalactiae (PCR) Strep pneumoniae (PCR) S. pyogenes (PCR) P. aeruginosa (PCR) Alicia/B-Vanco Res Genes blaIMP Car res Gene PCR KPC (blaKPC) Detect PCR NDM (blaNDM) Detect PCR OXA-48 Carbapenem Resis Gene (PCR) blaVIM Car Res Gene PCR CTX-M ESBL (PCR) POC Glucose 126 H 81 09/10/25 09/10/25 09/10/25 17:05 14:54 14:47 WBC RBC Hgb 9.1 L Hct 28.3 L MCV MCH MCHC RDW Plt Count MPV Neut % (Auto) Lymph % (Auto) [place] % (Auto) Eos % (Auto) Baso % (Auto) Neut # (Auto) Lymph # (Auto) [place] # (Auto) Eos # (Auto) Baso # (Auto) Abs Immat Gran (auto) Imm/Tot Granulo (auto) Sodium 141 Potassium 3.1 L Chloride 97 L Carbon Dioxide 32.7 H Anion Gap 14.4 BUN 53.0 H Creatinine 4.26 H Est GFR ( Amer) 12 L Est GFR (Non-Af Amer) 10 L BUN/Creatinine Ratio 12.4 Glucose 277 H Calcium 12.3 H Phosphorus 3.9 PTH Intact 22 Urine Color Urine Clarity Urine pH Ur Specific [place] Urine Protein Urine Glucose (UA) Urine Ketones Urine Occult Blood Urine Nitrite Urine Bilirubin Urine Urobilinogen Ur Leukocyte Esterase Urine RBC Urine WBC Ur Squamous Epith Cells Urine Crystals Triple Phos Crystals Urine Bacteria Urine Casts Urine Mucus Ur Culture Indicated? Specimen Source Blood A.calcoaceticus-baumannii cmplx PCR Not detected Bacteroides fragilis Not detected Fabby albicans (PCR) Not detected Fabby auris (PCR) Not detected C. glabrata (PCR) Not detected C. krusei (PCR) Not detected C. parapsilosis (PCR) Not detected C. tropicalis (PCR) Not detected C. neoform/gattii (PCR) Not detected Enterobacterales (PCR) Not detected E. cloacae complex PCR Not detected Enterococc faecalis PCR Not detected Enterococc faecium PCR Not detected E. coli (PCR) Not detected H. influenzae (PCR) Not detected Klebsiella aerogenes (PCR) Not detected Klebsiella oxytoca PCR Not detected K. pneumoniae group (PCR) Not detected List. monocytogenes PCR Not detected N. meningitidis (PCR) Not detected Proteus spp. (copies/mL) Not detected Salmonella spp. (PCR) Not detected Serratia marcescens PCR Not detected Staphylococcus sp PCR Detected A* Staph aureus (PCR) Detected A* mecA/C & MREJ Resist Gene Detected A* mecA/C-Methicil Resis Gene Not applicable mcr-1 Colistin Res Gene PCR Not applicable Staph epidermidis (PCR) Not detected Staph lugdunensis (TEM-PCR) Not detected S. maltophilia (PCR) Not detected Streptococcus sp PCR Not detected Strep agalactiae (PCR) Not detected Strep pneumoniae (PCR) Not detected S. pyogenes (PCR) Not detected P. aeruginosa (PCR) Not detected Alicia/B-Vanco Res Genes Not applicable blaIMP Car res Gene PCR Not applicable KPC (blaKPC) Detect PCR Not applicable NDM (blaNDM) Detect PCR Not applicable OXA-48 Carbapenem Resis Gene (PCR) Not applicable blaVIM Car Res Gene PCR Not applicable CTX-M ESBL (PCR) Not applicable POC Glucose 235 H 09/10/25 09/10/25 12:30 12:24 WBC RBC Hgb Hct MCV MCH MCHC RDW Plt Count MPV Neut % (Auto) Lymph % (Auto) [place] % (Auto) Eos % (Auto) Baso % (Auto) Neut # (Auto) Lymph # (Auto) [place] # (Auto) Eos # (Auto) Baso # (Auto) Abs Immat Gran (auto) Imm/Tot Granulo (auto) Sodium Potassium Chloride Carbon Dioxide Anion Gap BUN Creatinine Est GFR ( Amer) Est GFR (Non-Af Amer) BUN/Creatinine Ratio Glucose Calcium Phosphorus PTH Intact Urine Color Yellow Urine Clarity Cloudy A Urine pH >=9.0 A Ur Specific [place] 1.010 Urine Protein 100 A Urine Glucose (UA) 100 A Urine Ketones 40 A Urine Occult Blood Trace-i Urine Nitrite Negative Urine Bilirubin Negative Urine Urobilinogen 0.2 Ur Leukocyte Esterase Large A Urine RBC 2-5 A Urine WBC >100 A Ur Squamous Epith Cells Moderate A Urine Crystals None seen Triple Phos Crystals Moderate Urine Bacteria Large A Urine Casts None seen Urine Mucus None seen Ur Culture Indicated? Yes-[facility] Specimen Source A.calcoaceticus-baumannii cmplx PCR Bacteroides fragilis Fabby albicans (PCR) Fabby auris (PCR) C. glabrata (PCR) C. krusei (PCR) C. parapsilosis (PCR) C. tropicalis (PCR) C. neoform/gattii (PCR) Enterobacterales (PCR) E. cloacae complex PCR Enterococc faecalis PCR Enterococc faecium PCR E. coli (PCR) H. influenzae (PCR) Klebsiella aerogenes (PCR) Klebsiella oxytoca PCR K. pneumoniae group (PCR) List. monocytogenes PCR N. meningitidis (PCR) Proteus spp. (copies/mL) Salmonella spp. (PCR) Serratia marcescens PCR Staphylococcus sp PCR Staph aureus (PCR) mecA/C & MREJ Resist Gene mecA/C-Methicil Resis Gene mcr-1 Colistin Res Gene PCR Staph epidermidis (PCR) Staph lugdunensis (TEM-PCR) S. maltophilia (PCR) Streptococcus sp PCR Strep agalactiae (PCR) Strep pneumoniae (PCR) S. pyogenes (PCR) P. aeruginosa (PCR) Alicia/B-Vanco Res Genes blaIMP Car res Gene PCR KPC (blaKPC) Detect PCR NDM (blaNDM) Detect PCR OXA-48 Carbapenem Resis Gene (PCR) blaVIM Car Res Gene PCR CTX-M ESBL (PCR) POC Glucose 315 H Preliminary micro results at discharge 09/10/25 14:47 Blood Culture Result 1 - Preliminary Blood - Left Hand Discharge Plan Discharge Disposition: Hospice - Home Discharge Medications: New sennosides-docusate sodium 8.6-50 mg Tablet 1 tab PO QD PRN (Reason: Constipation) Qty: 30 0RF linezolid 600 mg tablet 300 mg PO BID 14 Days Qty: 14 0RF levofloxacin 250 mg tablet 250 mg PO DAILY 7 Days Qty: 7 0RF Continued pantoprazole 40 mg tablet,delayed release (DR/EC) 40 mg PO QDAY Changed acetaminophen [Acetaminophen Extra Strength] 500 mg tablet 500 mg PO Q6H PRN (Reason: pain) Qty: 0 0RF Discontinued sertraline 100 mg tablet 100 mg PO QAM insulin lispro 100 unit/mL insulin pen 1 sliding scale dose SUBCUT QID Patient Comments: before meals and at bedtime furosemide 20 mg tablet 20 mg PO .QD mirtazapine 7.5 mg tablet 7.5 mg PO DAILY (DME) Dexcom G7 Sensor Device MISCELLANEOUS trazodone 100 mg tablet 100 mg PO .QHS buspirone 5 mg tablet 5 mg PO TID calcium citrate 250 mg calcium tablet 500 mg PO TID cholecalciferol (vitamin D3) 50 mcg (2,000 unit) tablet 2,000 unit PO QDAY cyanocobalamin (vitamin B-12) 1,000 mcg capsule 1,000 mcg PO DAILY ergocalciferol (vitamin D2) 25,000 unit capsule 50,000 unit PO DAILY letrozole [Femara] 2.5 mg tablet 2.5 mg PO DAILY ferrous sulfate [Feosol] 325 mg (65 mg iron) tablet 325 mg PO DAILY alendronate [Fosamax] 70 mg tablet 70 mg PO QWEEK hydroxyzine HCl 10 mg tablet 10 mg PO TID insulin glargine 100 unit/mL (3 mL) insulin pen 10 unit subcut DAILY loratadine 10 mg tablet 10 mg PO DAILY magnesium oxide 200 mg magnesium tablet 400 mg PO DAILY Print Language: Frisian Forms: Portal Instructions
--- NOTE | 2025-09-11 12:45 | SWNOTE1 ---
Pt is able to be discharged today. HUBERT called and spoke to Lauren at [facility] and she updated the nurse Gabi. They are in agreement that transport around 4:00 or 5:00 is fine. SW to set up transport.
[2025-09-11] MEDS: VANCOMYCIN HCL 1,000 MG in 0.9 % SODIUM CHLORIDE 500 ML 250 MG IV (12:53)
--- NOTE | 2025-09-11 13:09 | SWNOTE1 ---
HUBERT called and set up [facility] for 4:30pm. HUBERT notified pt's nurse, Lauren at [facility], and pt's daughter Ileana. HUBERT had to email discharge med rec, discharge summary, labs, and updated vitals to [facility]. Pt is going home with [facility] and she lives with her daughter and grandson who will also care for her.
[2025-09-11 14:21] LABS: Hematocrit 24.0 % (36.0-48.0); Hemoglobin 7.5 g/dL (12.0-16.0)
== END 2025-09-11 16:47 | disposition hospice, home (50) | DRG 682 ==
LOC: ER 05:43 → MS 08:48
PROVIDERS: Admitting Provider Internal Medicine; Emergency Provider Internal Medicine; PCP Nurse Practitioner; Visit Provider Internal Medicine
DX: N17.9 Acute kidney failure, unspecified (principal); G93.41 Metabolic encephalopathy; C79.51 Secondary malignant neoplasm of bone; N39.0 Urinary tract infection, site not specified; K92.0 Hematemesis; R64 Cachexia; R78.81 Bacteremia; E83.52 Hypercalcemia; R79.89 Other specified abnormal findings of blood chemistry; Z85.3 Personal history of malignant neoplasm of breast; N18.4 Chronic kidney disease, stage 4 (severe); Z87.440 Personal history of urinary (tract) infections; M19.90 Unspecified osteoarthritis, unspecified site; J45.909 Unspecified asthma, uncomplicated; G47.33 Obstructive sleep apnea (adult) (pediatric); E11.51 Type 2 diabetes mellitus with diabetic peripheral angiopathy without gangrene; M47.819 Spondylosis without myelopathy or radiculopathy, site unspecified; Z86.73 Personal history of transient ischemic attack (TIA), and cerebral infarction without residual deficits; I25.10 Atherosclerotic heart disease of native coronary artery without angina pectoris; F32.A Depression, unspecified; K21.9 Gastro-esophageal reflux disease without esophagitis; I12.9 Hypertensive chronic kidney disease with stage 1 through stage 4 chronic kidney disease, or unspecified chronic kidney disease; Z90.10 Acquired absence of unspecified breast and nipple; Z95.5 Presence of coronary angioplasty implant and graft; Z95.3 Presence of xenogenic heart valve; Z79.4 Long term (current) use of insulin; Z79.899 Other long term (current) drug therapy; R54 Age-related physical debility; E86.0 Dehydration; Z66 Do not resuscitate; D63.0 Anemia in neoplastic disease; B95.62 Methicillin resistant Staphylococcus aureus infection as the cause of diseases classified elsewhere; Z68.22 Body mass index [BMI] 22.0-22.9, adult; N83.9 Noninflammatory disorder of ovary, fallopian tube and broad ligament, unspecified
CPT/HCPCS: 36415; 51702; 51798; 70450; 71045; 74176; 80048; 80053; 81001; 82271; 82306; 82397; 82948; 83605; 83735; 83970; 84100; 84484; 85014; 85018; 85025; 86850; 86900; 86901; 87040; 87086; 87088; 87150; 87186; 93005; 94640; 94761; 96361; 96374; 97161; 99285; G0328; J1644; J2405; J3373